=== PATIENT | male | born 1975 | race Caucasian/White ===

== ENCOUNTER 2018-04-09 16:46 | Emergency (ER) | payer OTHER ==
[2018-04-09 17:51] VITALS: RESP 18; TEMP 98.4
[2018-04-09 20:05] LABS: Basophils # (A) 0.1 k/uL (0-0.2); Basophils % (A) 1 %; Eosinophils # (A) 0.2 k/uL (0-0.7); Eosinophils % (A) 2 %; HCT 49.8 % (39.0-53.0); Lymphocytes % (A) 31 %; MCH 29.7 pg (25.0-35.0); MCHC 34.2 g/dL (31.0-37.0); MCV 86.9 fL (80.0-100.0); Mean Platelet Volume 6.3; Monocytes # (A) 0.5 k/uL (0-1.0); Monocytes % (A) 5 %; Neutrophils # (A) 5.8 k/uL (1.3-7.7); Neutrophils % (A) 60 %; Platelet Count 318 k/uL (150-450); RBC 5.73 m/uL (4.30-5.90); RDW 13.2 % (11.5-15.5); WBC 9.7 k/uL (3.8-10.6)
--- NOTE | 2018-04-09 20:09 | US ---
EXAMINATION TYPE: US venous doppler duplex LE LT DATE OF EXAM: 04/09/2018 7:59 PM COMPARISON: NONE CLINICAL HISTORY: Pain. edema hx of DVT patient on blood thinners. SIDE PERFORMED: Left TECHNIQUE: The lower extremity deep venous system is examined utilizing real time linear array sonog mehnaz with graded compression, doppler sonography and color-flow sonography. VESSELS IMAGED: External Iliac Vein (EIV) Common Femoral Vein Deep Femoral Vein Greater Saphenous Vein * Femoral Vein Popliteal Vein Small Saphenous Vein * Proximal Calf Veins (* superficial vessels) FINDINGS: Grayscale, color doppler, spectral doppler imaging performed of the deep veins of the lowe r extremities. There is normal flow, compressibility, vascular waveforms. IMPRESSION: 1. NEGATIVE FOR DVT, LEFT LOWER EXTREMITY. 2. 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
[2018-04-09 20:14] LABS: ALT 54 U/L (21-72); AST 32 U/L (17-59); Albumin 3.9 g/dL (3.5-5.0); Alkaline Phosphatase 55 U/L (38-126); Anion Gap 10 mmol/L; Blood Urea Nitrogen 8 mg/dL (9-20); Calcium 9.2 mg/dL (8.4-10.2); Carbon Dioxide 28 mmol/L (22-30); Chloride 102 mmol/L (98-107); Glucose 93 mg/dL (74-99); Magnesium 1.9 mg/dL (1.6-2.3); Potassium 3.7 mmol/L (3.5-5.1); Sodium 140 mmol/L (137-145); Total Bilirubin 1.2 mg/dL (0.2-1.3); Total Protein 7.3 g/dL (6.3-8.2)
--- NOTE | 2018-04-09 20:58 | ED ---
Lower Extremity Injury HPI - General Source: patient Mode of arrival: ambulatory Limitations: no limitations <Kailee Ventura - Last Filed: 04/10/18 02:33> <Alyssa López - Last Filed: 04/10/18 02:54> - General Chief Complaint: Extremity Injury, Lower Stated Complaint: POSS BLOODCLOT LEFT LEG Time Seen by Provider: 04/09/18 19:05 - History of Present Illness Initial Comments: 42-year-old male patient presents to the emergency department today for evaluation of left lower extremity swelling. Patient states that yesterday evening he started to have some swelling to the left lower extremity. Patient states that he does have some mild discomfort to the left knee for the past several weeks. 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 Patient denies any injury to the left leg. He does take Xarelto daily basis. He denies any shortness of breath, dyspnea with exertion or orthopnea. Denies any chest pain. Denies any cough or congestion. Denies any fevers or chills. Patient denies any recent rash, abdominal pain, nausea, vomiting, diarrhea, constipation, back pain, numbness, tingling, dizziness, weakness, hematuria, dysuria, urinary urgency, urinary frequency, headache, visual changes , or any other complaints. (Kailee Ventura) - Related Data Home Medications Medication Instructions Recorded Confirmed HYDROcodone/APAP 10-325MG [[place] 1 tab PO QID PRN 04/09/18 04/09/18 10-325] Rivaroxaban [Xarelto] 20 mg PO DAILY 04/09/18 04/09/18 Allergies Allergy/AdvReac Type Severity Reaction Status Date / Time No Known Allergies Allergy Verified 04/09/18 20:57 Review of Systems ROS Other: All systems not noted in ROS Statement are negative. <Kailee Ventura - Last Filed: 04/10/18 02:33> ROS Other: All systems not noted in ROS Statement are negative. <Alyssa López - Last Filed: 04/10/18 02:54> ROS Statement: Those systems with pertinent positive or pertinent negative responses have been documented in the HPI. Past Medical History Past Medical History: CVA/TIA, Deep Vein Thrombosis (DVT) Additional Past Medical History / Comment(s): crohns disease dvt r arm History of Any Multi-Drug Resistant Organisms: None Reported Past Surgical History: Cholecystectomy, Orthopedic Surgery Additional Past Surgical History / Comment(s): arm SX, R leg below knee amputation Past Anesthesia/Blood Transfusion Reactions: No Reported Reaction Past Psychological History: No Psychological Hx Reported Smoking Status: Former smoker Past Alcohol Use History: None Reported Past Drug Use History: None Reported - Past Family History Father Additional Family Medical History / Comment(s): DAD IN HIS TWENTIES CAUSES UNK Mother Family Medical History: Diabetes Mellitus <Kailee Ventura M - Last Filed: 04/10/18 02:33> General Exam Limitations: no limitations General appearance: alert, in no apparent distress, other (Physical well- developed, well-nourished adult male patient in no acute distress. Vital signs upon presentation are temperature 98.4F, pulse 94, respirations 18, blood pressure 170/125, pulse ox 97% on room air.) Eye exam: Present: normal appearance, PERRL, EOMI. Absent: scleral icterus, conjunctival injection, periorbital swelling ENT exam: Present: normal exam, normal oropharynx, mucous membranes moist Respiratory exam: Present: normal lung sounds bilaterally. Absent: respiratory distress, wheezes, rales, rhonchi, stridor Cardiovascular Exam: Present: regular rate, normal rhythm, normal heart sounds. Absent: systolic murmur, diastolic murmur, rubs, gallop, clicks GI/Abdominal exam: Present: soft, normal bowel sounds. Absent: distended, tenderness, guarding, rebound, rigid Extremities exam: Present: full ROM, normal capillary refill, other (Right below the knee amputation. There is 2+ pitting edema to the left foot, ankle, and lower extremity. No erythema or evidence of wound. Skin is pink, warm, dry. Cap refills less than 3 seconds. Pedal and posttibial pulses are 2+ and equal bilaterally.). Absent: normal inspection, tenderness, pedal edema, joint swelling, calf tenderness Neurological exam: Present: alert, oriented X3, CN II-XII intact Psychiatric exam: Present: normal affect, normal mood Skin exam: Present: warm, dry, intact, normal color. Absent: rash <Kailee Ventura - Last Filed: 04/10/18 02:33> Vital Signs 04/09/18 04/09/18 17:48 21:18 Temperature 98.4 F Pulse Rate 94 82 Respiratory 18 18 Rate Blood Pressure 170/125 126/83 O2 Sat by Pulse 97 98 Oximetry Medical Decision Making - Lab Data Result diagrams: 04/09/18 19:50 04/09/18 19:50 - Radiology Data Radiology results: report reviewed <Kailee Ventura - Last Filed: 04/10/18 02:33> - Lab Data Result diagrams: 04/09/18 19:50 04/09/18 19:50 <Alyssa López - Last Filed: 04/10/18 02:54> - Medical Decision Making 42-year-old male patient presented to the emergency department today for evaluation of left leg swelling. Patient denies any pain to the leg. Physical examination did reveal 2+ pitting edema to the foot, ankle, and lower leg. Neurovascular status was intact. Labs reviewed and are unremarkable. Ultrasound of the left lower extremity was negative for any DVT. There did appear to be Rahman's cyst in the popliteal space. Patient was instructed to obtain and wear a compression stocking and to keep his leg elevated. He is instructed to follow-up with his primary care physician for recheck in 1-2 days. Return parameters discussed in detail. He verbalizes understanding and agrees with this plan. (Kailee Ventura) I was available for consultation in the emergency department. The history and physical exam were done by the midlevel provider. I was consulted for this patient's care. I reviewed the case with the midlevel provider and based on their presentation of the patient, I agree with the assessment, medical decision making and plan of care as documented. (Alyssa López) - Lab Data Lab Results 04/09/18 04/09/18 04/09/18 Range/Units 19:50 19:50 19:50 WBC 9.7 (3.8-10.6) k/uL RBC 5.73 (4.30-5.90) m/uL Hgb 17.0 (13.0-17.5) gm/dL Hct 49.8 (39.0-53.0) % MCV 86.9 (80.0-100.0) fL MCH 29.7 (25.0-35.0) pg MCHC 34.2 (31.0-37.0) g/dL RDW 13.2 (11.5-15.5) % Plt Count 318 (150-450) k/uL Neutrophils % 60 % Lymphocytes % 31 % Monocytes % 5 % Eosinophils % 2 % Basophils % 1 % Neutrophils # 5.8 (1.3-7.7) k/uL Lymphocytes # 3.0 (1.0-4.8) k/uL Monocytes # 0.5 (0-1.0) k/uL Eosinophils # 0.2 (0-0.7) k/uL Basophils # 0.1 (0-0.2) k/uL Sodium 140 (137-145) mmol/L Potassium 3.7 (3.5-5.1) mmol/L Chloride 102 (98-107) mmol/L Carbon Dioxide 28 (22-30) mmol/L Anion Gap 10 mmol/L BUN 8 L (9-20) mg/dL Creatinine 0.92 (0.66-1.25) mg/dL Est GFR (CKD-EPI)AfAm >90 (>60 ml/min/1.73 sqM) Est GFR (CKD-EPI)NonAf >90 (>60 ml/min/1.73 sqM) Glucose 93 (74-99) mg/dL Calcium 9.2 (8.4-10.2) mg/dL Magnesium 1.9 (1.6-2.3) mg/dL Total Bilirubin 1.2 (0.2-1.3) mg/dL AST 32 (17-59) U/L ALT 54 (21-72) U/L Alkaline Phosphatase 55 (38-126) U/L NT-Pro-B Natriuret Pep <11 pg/mL Total Protein 7.3 (6.3-8.2) g/dL Albumin 3.9 (3.5-5.0) g/dL - Radiology Data Venous Doppler duplex of the left lower extremity was obtained. Report was reviewed in its entirety. Impression by Dr. Tanner shows negative for DVT, left lower trauma. Small popliteal fossa anechoic fluid collection noted, likely Rahman's cyst. (Kailee Ventura) Disposition Is patient prescribed a controlled substance at d/c from ED?: No Time of Disposition: 21:38 <Kailee Ventura - Last Filed: 04/10/18 02:33> <Alyssa López P - Last Filed: 04/10/18 02:54> Clinical Impression: Swelling of left lower extremity Disposition: HOME SELF-CARE Condition: Good Instructions (If sedation given, give patient instructions): Leg Edema (ED) Additional Instructions: Obtain and wear a compression stocking to the left leg during the day, take this off at night while sleeping. Keep left leg elevated as much as possible. Follow-up with her primary care physician for further evaluation as soon as possible. Return to the emergency department immediately for any new, worsening , or concerning symptoms. Referrals: Moriah Cuellar MD [Primary Care Provider] - 1-2 days
[2018-04-09 21:19] VITALS: BP 126/83; PULSE 82
== END 2018-04-09 21:59 | disposition home or self-care (01) ==
LOC: EC 16:46
DX: M79.89 Other specified soft tissue disorders (principal); Z79.01 Long term (current) use of anticoagulants; Z89.511 Acquired absence of right leg below knee; Z86.73 Personal history of transient ischemic attack (TIA), and cerebral infarction without residual deficits; Z86.718 Personal history of other venous thrombosis and embolism; Z87.891 Personal history of nicotine dependence
CPT/HCPCS: 36415; 80053; 83735; 83880; 85025; 99284

== ENCOUNTER → 2021-02-20 | Outpatient (CLI) | payer OTHER ==
--- NOTE | 2021-02-20 12:30 | XR ---
EXAMINATION TYPE: XR thoracic spine complete DATE OF EXAM: 02/20/2021 CLINICAL HISTORY: pain TECHNIQUE: Frontal, lateral, and swimmer's view of thoracic spine are obtained. COMPARISON: None. FINDINGS: Thoracic spine show satisfactory alignment without evidence of acute fracture or dislocatio n. Vertebral body heights are preserved. Mild degenerative disc space narrowing. Visualized ribs a re unremarkable. IMPRESSION: No acute fracture or dislocation is seen in the thoracic spine. ICD 10 NO FRACTURE, INIT IAL EVALUATION
--- NOTE | 2021-02-20 12:31 | XR ---
EXAMINATION TYPE: XR lumbar spine 2 or 3V DATE OF EXAM: 02/20/2021 CLINICAL HISTORY: pain TECHNIQUE: Three views of the lumbar spine are submitted. COMPARISON: None. FINDINGS: There are 5 lumbar type vertebral bodies identified. The lumbar spine shows satisfactory alignment w ithout evidence of acute fracture or dislocation. Vertebral body heights are within normal limits. Moderate multilevel degenerative disc space narrowing and spondylosis. The overlying soft tissue renée ears unremarkable. IMPRESSION: No acute fracture or dislocation is seen in the lumbar spine. ICD 10 NO FRACTURE, INITIAL EVALUATION
--- NOTE | 2021-02-20 12:33 | XR ---
EXAMINATION TYPE: XR pelvis AP view DATE OF EXAM: 02/20/2021 CLINICAL HISTORY: Injury with pain TECHNIQUE: A single AP view of the pelvis is obtained. COMPARISON: CTA abdomen and pelvis March 13, 2017. FINDINGS: There is no acute fracture/dislocation evident in the pelvis. Lzexmpbt-[id number] narrowing bilateral sacroiliac joints redemonstrated. Moderate acetabular spurring of both hips again seen wit hout significant joint space loss. Pubic symphysis is intact. Surgical clip in the left pelvis redemo nstrated. IMPRESSION: There is no acute fracture or dislocation in the pelvis.
== END | disposition home or self-care (01) ==
LOC: RADXRMAIN 11:52
PROVIDERS: ATTEND Emergency Medicine
DX: S30.0XXA Contusion of lower back and pelvis, initial encounter (principal); S23.3XXA Sprain of ligaments of thoracic spine, initial encounter; X58.XXXA Exposure to other specified factors, initial encounter
CPT/HCPCS: 72072; 72100; 72170

== ENCOUNTER → 2021-04-21 | Outpatient (CLI) | payer OTHER ==
--- NOTE | 2021-04-22 08:01 | MR ---
EXAMINATION TYPE: MR lumbar spine wo con DATE OF EXAM: 04/21/2021 COMPARISON: CT lumbar spine March 24, 2021. HISTORY: Lower back pain, LLE radiculopathy S/P fall. TECHNIQUE: Multiplanar, multisequence imaging of the lumbar spine is performed without IV contrast. FINDINGS: Sagittal images of the lumbar spine show vertebral body heights to remain satisfactory. Red emonstration of grade 1 retrolisthesis of L3 on L4 and L4 on L5. Multilevel disc desiccation with re lative sparing of L2-L3 level. Moderate disc space narrowing L3-L4 level. Mild to moderate disc space narrowing L4-L5 and L5-S1 levels. The conus medullaris is normal in position and signal ending at T1 2-L1 disc space level. The bone marrow signal intensity is within normal limits. Mild multilevel ant erior spurring redemonstrated. Axial images at T12-L1 level redemonstrate effacing right lateral thecal sac axial image [address] axial image 9 moderate right-sided facet arthropathy. Axial images at L1-L2 level appear within normal limits. Axial images at L2-L3 level shows mild facet arthropathy and ligament flavum hypertrophy effacing pos terior lateral thecal sac. Axial images at L3-L4 level show retrolisthesis with mild facet arthropathy bilaterally. There is mil [id number] broad disc bulge minimally effacing the anterior thecal sac. Mild right-sided neural fo raminal narrowing is present. Axial images at the L4-L5 level shows mild facet arthropathy and ligamentum flavum hypertrophy. There is mild broad disc bulge with posterior annular tear. Patent bilateral neural foramina. Axial images at L5-S1 level moderate facet degenerative changes bilaterally. There is broad-based rig ht paracentral/foraminal disc protrusion effacing the lateral recess and causing moderate right-sided neural foraminal narrowing. Left-sided neural foramen is patent. Spinal canal is mildly effaced righ t anterolateral aspect. There is expected encroachment of the central right S1 nerve axial image 1 an d sagittal image 11. This however does not correlate with patient's left-sided radiculopathy type sym ptoms. Paraspinal muscle bulk is maintained. IMPRESSION: Multilevel spondylolisthesis and degenerative changes as detailed above.
== END | disposition home or self-care (01) ==
LOC: RADMRIMAIN 15:23
PROVIDERS: ATTEND Internal Medicine
DX: M43.16 Spondylolisthesis, lumbar region (principal); M51.36 Other intervertebral disc degeneration, lumbar region
CPT/HCPCS: 72148

== ENCOUNTER 2021-05-13 16:07 | Emergency (ER) | payer OTHER ==
[2021-05-13 16:11] VITALS: TEMP 97.5
[2021-05-13] MEDS ORDERED: ONDANSETRON 4 MG/2 ML VIAL IVP STA (16:31)
[2021-05-13] MEDS ORDERED: SODIUM CHLORIDE 0.9% 1,000 ML IV STA (16:31)
[2021-05-13] MEDS ORDERED: MORPHINE SULFATE 4 MG/ML SYRINGE IV STA (16:31)
--- NOTE | 2021-05-13 17:03 | ED ---
General Adult HPI - General Chief complaint: Nausea/Vomiting/Diarrhea Stated complaint: abd pain/vomiting Time Seen by Provider: 05/13/21 16:26 Source: patient, RN notes reviewed, old records reviewed Mode of arrival: ambulatory Limitations: no limitations - History of Present Illness Initial comments: 45 yo female presenting for evaluation generalized abdominal pain, vomiting and diarrhea. Patient states he had remote diagnosis of Crohn's breath states he had a long period of time when he had no flareups of is not on any chronic treatment. He states that over the past 24 hours she's had vomiting and watery diarrhea. As well as generalized abdominal pain and cramping. No rectal bleeding. No fever. - Related Data Home Medications Medication Instructions Recorded Confirmed HYDROcodone/APAP 10-325MG [[place] 1 tab PO QID PRN 04/09/18 05/13/21 10-325] Rivaroxaban [Xarelto] 20 mg PO DAILY 04/09/18 05/13/21 valACYclovir [Valtrex] 500 mg PO DAILY 05/13/21 05/13/21 Allergies Allergy/AdvReac Type Severity Reaction Status Date / Time No Known Allergies Allergy Verified 05/13/21 18:10 Review of Systems ROS Statement: Those systems with pertinent positive or pertinent negative responses have been documented in the HPI. ROS Other: All systems not noted in ROS Statement are negative. Past Medical History Past Medical History: CVA/TIA, Deep Vein Thrombosis (DVT) Additional Past Medical History / Comment(s): crohns disease dvt r arm History of Any Multi-Drug Resistant Organisms: None Reported Past Surgical History: Cholecystectomy, Orthopedic Surgery Additional Past Surgical History / Comment(s): arm SX, R leg below knee amputation Past Anesthesia/Blood Transfusion Reactions: No Reported Reaction Past Psychological History: No Psychological Hx Reported Smoking Status: Never smoker Past Alcohol Use History: None Reported Past Drug Use History: None Reported - Past Family History Father Additional Family Medical History / Comment(s): DAD IN HIS TWENTIES CAUSES UNK Mother Family Medical History: Diabetes Mellitus General Exam Limitations: no limitations General appearance: alert, in no apparent distress Head exam: Present: atraumatic, normocephalic Eye exam: Present: normal appearance, PERRL ENT exam: Present: mucous membranes dry Neck exam: Present: normal inspection. Absent: tenderness, meningismus Respiratory exam: Present: normal lung sounds bilaterally. Absent: respiratory distress, wheezes Cardiovascular Exam: Present: regular rate, normal rhythm GI/Abdominal exam: Present: soft, distended, tenderness. Absent: guarding, rebound, rigid Extremities exam: Present: normal inspection, normal capillary refill. Absent: pedal edema, calf tenderness Neurological exam: Present: alert, oriented X3, CN II-XII intact. Absent: motor sensory deficit Psychiatric exam: Present: normal affect, normal mood Skin exam: Present: warm, dry, intact. Absent: cyanosis, diaphoretic Course Vital Signs 05/13/21 05/13/21 16:08 17:10 Temperature 97.5 F L Pulse Rate 60 111 H Respiratory 20 16 Rate Blood Pressure 138/96 151/91 O2 Sat by Pulse 94 L 94 L Oximetry Medical Decision Making - Medical Decision Making 45-year-old male history of Crohn's disease presenting with abdominal pain distention, nausea vomiting. Workup is initiated. Patient has mild leukocytos is. He is hemoconcentrated with hemoglobin 19.4. He has a minimal lactic acid. Normal kidney function. CT is performed which does show high-grade small bowel obstruction with transition point likely secondary to Crohn's exacerbation. I did discuss case with Dr. Ford who is covering for general surgery and he requests patient be transferred to an institution that has gastroenterology. I discussed case with Dr. Hollis at [facility] who will accept transfer for further evaluation and treatment. given symptomatic relief as well as IV steroids and NG tube will be placed. - Lab Data Result diagrams: 05/13/21 16:37 05/13/21 16:37 Lab Results 05/13/21 05/13/21 05/13/21 Range/Units 16:37 16:37 16:37 WBC 13.6 H (3.8-10.6) k/uL RBC 6.33 H (4.30-5.90) m/uL Hgb 19.4 H* (13.0-17.5) gm/dL Hct 56.9 H (39.0-53.0) % MCV 89.8 (80.0-100.0) fL MCH 30.6 (25.0-35.0) pg MCHC 34.1 (31.0-37.0) g/dL RDW 14.0 (11.5-15.5) % Plt Count 437 (150-450) k/uL MPV 7.0 Neutrophils % 76 % Lymphocytes % 18 % Monocytes % 5 % Eosinophils % 0 % Basophils % 0 % Neutrophils # 10.3 H (1.3-7.7) k/uL Lymphocytes # 2.5 (1.0-4.8) k/uL Monocytes # 0.6 (0-1.0) k/uL Eosinophils # 0.1 (0-0.7) k/uL Basophils # 0.0 (0-0.2) k/uL Sodium 137 (137-145) mmol/L Potassium 4.2 (3.5-5.1) mmol/L Chloride 99 (98-107) mmol/L Carbon Dioxide 22 (22-30) mmol/L Anion Gap 16 mmol/L BUN 15 (9-20) mg/dL Creatinine 1.11 (0.66-1.25) mg/dL Est GFR (CKD-EPI)AfAm >90 (>60 ml/min/1.73 sqM) Est GFR (CKD-EPI)NonAf 80 (>60 ml/min/1.73 sqM) Glucose 145 H (74-99) mg/dL Plasma Lactic Acid Edmund 2.5 H* (0.7-2.0) mmol/L Calcium 9.3 (8.4-10.2) mg/dL Total Bilirubin 3.8 H (0.2-1.3) mg/dL AST 28 (17-59) U/L ALT 22 (4-49) U/L Alkaline Phosphatase 88 (38-126) U/L Total Protein 8.5 H (6.3-8.2) g/dL Albumin 4.7 (3.5-5.0) g/dL Amylase 71 (30-110) U/L Lipase 50 (23-300) U/L Disposition Clinical Impression: Exacerbation of Crohn's disease, Small bowel obstruction Disposition: OTHER INSTITUTION NOT DEFINED Condition: Stable Is patient prescribed a controlled substance at d/c from ED?: No Referrals: Moriah Cuellar MD [Primary Care Provider] - 1-2 days Time of Disposition: 19:16 - Out of Hospital Transfer - Req. Specs Out of Hospital Transfer - Requested Specifics: Other Emergency Center (TRansfer to [facility])
[2021-05-13 17:06] LABS: ALT 22 U/L (4-49); AST 28 U/L (17-59); African American GFR (CKD) >90 (>60 ml/min/1.73 sqM); Albumin 4.7 g/dL (3.5-5.0); Alkaline Phosphatase 88 U/L (38-126); Amylase 71 U/L (30-110); Anion Gap 16 mmol/L; Basophils % (A) 0 %; Blood Urea Nitrogen 15 mg/dL (9-20); Calcium 9.3 mg/dL (8.4-10.2); Carbon Dioxide 22 mmol/L (22-30); Chloride 99 mmol/L (98-107); Eosinophils # (A) 0.1 k/uL (0-0.7); Eosinophils % (A) 0 %; Glucose 145 mg/dL (74-99); HCT 56.9 % (39.0-53.0); Lipase 50 U/L (23-300); Lymphocytes # (A) 2.5 k/uL (1.0-4.8); Lymphocytes % (A) 18 %; MCH 30.6 pg (25.0-35.0); MCHC 34.1 g/dL (31.0-37.0); MCV 89.8 fL (80.0-100.0); Monocytes # (A) 0.6 k/uL (0-1.0); Monocytes % (A) 5 %; Neutrophils # (A) 10.3 k/uL (1.3-7.7); Neutrophils % (A) 76 %; Non-African American GFR(CKD) 80 (>60 ml/min/1.73 sqM); Platelet Count 437 k/uL (150-450); Potassium 4.2 mmol/L (3.5-5.1); RBC 6.33 m/uL (4.30-5.90); Sodium 137 mmol/L (137-145); Total Bilirubin 3.8 mg/dL (0.2-1.3); Total Protein 8.5 g/dL (6.3-8.2); WBC 13.6 k/uL (3.8-10.6)
[2021-05-13 17:08] LABS: HGB 19.4 gm/dL (13.0-17.5)
--- NOTE | 2021-05-13 18:06 | CT ---
EXAMINATION TYPE: CT abdomen pelvis w con DATE OF EXAM: 05/13/2021 COMPARISON: 03/13/2017 HISTORY: Abdominal pain, N/V CT DLP: 1875.1 mGycm, Automated Exposure Control for Dose Reduction was Utilized. CONTRAST: CT scan of the abdomen and pelvis is performed with oral and with IV Contrast, patient injected with 100 mL of Isovue 300. FINDINGS: LUNG BASES: Non specific right lower lobe groundglass and linear opacities. INCLUDED CARDIAC STRUCTURES: There is no cardiomegaly or pericardial effusion. LIVER: Right hepatic lobe measures 22 cm. No focal hepatic mass. Normal hepatic contour. GALLBLADDER : Surgically resected. BILIARY TREE: Mild intrahepatic biliary ductal dilatation, greater in the left side. This has slightl y increased in the interval. Within the extrahepatic common bile duct or to prior study. PANCREAS: No significant abnormality is seen. SPLEEN: No significant abnormality is seen. ADRENALS: No significant abnormality is seen. KIDNEYS AND URETERS: No significant abnormality is seen. URINARY BLADDER: No significant abnormality is appreciated. PROSTATE: Prominent size of the prostate gland. GASTROINTESTINAL SYSTEM: Distal esophagus is normal. Stomach is unremarkable. Duodenum is within norm al limits. There is small bowel dilatation extending from the duodenal jejunal junction to the level of the distal ileum. Right mid abdomen, there is a obvious transition point between dilated distal il eum bowel loops. This is secondary to significant narrowing of distal terminal ileum loop. There is a djacent mild stranding and mesenteric vascular congestion. Prominent lymph nodes are seen within the same vicinity (52/201). The terminal ileum bowel loop distal to the dilatation demonstrates mild wall thickening similar to prior study to the level of the ileocecal valve. The appendix is not thickened and no evidence for acute appendicitis is seen. There are scattered diverticula in the sigmoid colon . Some air passages through to the rectum. There is mild focal irregularity of the wall of the descen ding colon superiorly seen on image 47 series 201. There is also edema involving the wall of the cecu m and ascending colon proximally. PERITONEUM/MESENTRY: No pneumoperitoneum or ascites. LYMPH NODES: No enlarged retroperitoneal or pelvic lymph nodes. MAJOR VASCULAR STRUCTURES: Nonaneurysmal aorta. Unremarkable inferior vena cava. OSSEOUS STRUCTURES: There are arthritic changes at the sacroiliac joints bilateral hip joints. No acu te fracture or dislocation. Moderate degenerative changes seen in the spine, most apparent at L5-S1. IMPRESSION: 1. High-grade small bowel obstruction at the level of the terminal ileum with a transition point asso ciated with distal terminal ileum mild wall thickening, associated/adjacent inflammatory changes of t he mesentery and possible TI stricture, findings are likely on the basis of active inflammatory disea se/Crohn's. 2. Irregularity in the wall of the proximal ascending colon and superior aspect of the wall of the de scending colon could be related to the same pathology or could be related to under distention. Lack o f oral contrast limits evaluation of remaining bowel loops. 3. Sacroiliitis, consistent with above. 4. Mild sigmoid diverticulosis, no acute diverticulitis. 5. Mild intrahepatic biliary ductal dilatation, increased in the interval, most prominent in the left hepatic lobe. 6. Right lower lobe lung changes, no significant change since prior. They clinically for acute infect ion. 7. Hepatomegaly. No significant change.
[2021-05-13] MEDS ORDERED: SODIUM CHLORIDE 0.9% 500 ML 500 ML IV ONE (18:24)
[2021-05-13] MEDS ORDERED: methylPREDNISolone SOD SUCCI 125 MG/2 ML VIAL IV STA (18:24)
[2021-05-13] MEDS ORDERED: SODIUM CHLORIDE 0.9% 1,000 ML IV SCH (18:30)
[2021-05-13] MEDS ORDERED: HYDROmorphone 1 MG/ML 1 ML SYRINGE IVP STA ×2 (19:15→21:38)
--- NOTE | 2021-05-13 20:01 | XR ---
EXAMINATION TYPE: XR chest 1V DATE OF EXAM: 05/13/2021 7:41 PM COMPARISON:Chest radiographs from 01/28/2011 TECHNIQUE: XR chest 1V Frontal view of the chest. CLINICAL INDICATION:Male, 45 years old with history of NG tube placement; FINDINGS: Lungs/Pleura: There is no evidence of pleural effusion, focal consolidation, or pneumothorax. There i s an elevated right diaphragm. Pulmonary vascularity: Unremarkable. Heart/mediastinum: Cardiomediastinal silhouette is unremarkable. Musculoskeletal: No acute osseous pathology. Other findings: None Lines/Tubes: Nasogastric tube with its distal tip and side-port projecting under the diaphragm. IMPRESSION: 1. Nasogastric tube in appropriate position. 2. No acute cardiopulmonary disease/process. 3. Elevated right diaphragm could represent damage to the right phrenic nerve.
--- NOTE | 2021-05-13 21:33 | XR ---
EXAMINATION TYPE: XR chest 1V DATE OF EXAM: 05/13/2021 8:19 PM COMPARISON: 05/13/2021 TECHNIQUE: XR chest 1V Frontal view of the chest. CLINICAL INDICATION:Male, 45 years old with history of NG tub placement ; EXAMINATION TYPE: XR chest 1V FINDINGS: Lungs/Pleura: There is no evidence of pleural effusion, focal consolidation, or pneumothorax. There i s an elevated right diaphragm. Pulmonary vascularity: Unremarkable. Heart/mediastinum: Cardiomediastinal silhouette is unremarkable. Musculoskeletal: No acute osseous pathology. Other findings: None Lines/Tubes: Nasogastric tube with its distal tip and side-port projecting under the diaphragm. IMPRESSION: 1. Nasogastric tube in appropriate position. 2. No acute cardiopulmonary disease/process. 3. Elevated right diaphragm could represent damage to the right phrenic nerve.
[2021-05-13 21:44] VITALS: BP 150/89; PULSE 89; RESP 18
== END 2021-05-13 22:29 | disposition other institution (70) ==
LOC: EC 16:07
DX: K50.90 Crohn's disease, unspecified, without complications (principal); K56.609 Unspecified intestinal obstruction, unspecified as to partial versus complete obstruction; Z86.73 Personal history of transient ischemic attack (TIA), and cerebral infarction without residual deficits
CPT/HCPCS: 99284; 96374; 96375; 96376; 96361; 36415; 80053; 82150; 83605; 83690; 85025; 71045; 74177; J2270; J2930; J2405; J1170; Q9967

== ENCOUNTER → 2021-06-19 | Outpatient (CLI) | payer OTHER ==
[2021-06-19 23:37] LABS: Hepatitis B Surface Antigen Nonreactive (Nonreactive)
[2021-06-19 23:38] LABS: Hepatitis B Surface Antibody Reactive (Nonreactive)
== END | disposition home or self-care (01) ==
LOC: LABWHC1 15:41
PROVIDERS: ATTEND Internal Medicine Gastroenterology
DX: Z87.891 Personal history of nicotine dependence (principal)
CPT/HCPCS: 36415; 86480; 86704; 86706; 87340

== ENCOUNTER → 2021-07-13 | Outpatient (CLI) | payer OTHER ==
[2021-07-13 13:02] VITALS: BP 144/89; PULSE 72; RESP 18; TEMP 98.7
--- NOTE | 2021-07-13 13:07 | P.CON ---
Consult Note - . Consult date: 07/13/21 Assessment/Plan:: HISTORY OF PRESENT ILLNESS: 46 -year-old male as a referral from Dr. Jewell presents today with chronic and severe left-sided lower back pain since February 2021 secondary to spondylosis, DDD and disc herniations for evaluation. He states left-sided lower back pain is 8 out of 10 in intensity, achy, burning, tight, stabbing sensation with radiation of pain down the left lower extremity and a sharp character. Pain is provoked with standing, walking, bending and lifting. Pain is relieved with medications ([place], ibuprofen), heat, physical therapy in March 2021, massage therapy which worsened the pain, repositioning, use of a recliner and rest. PMH: Crohn's disease PSH: Right thoracic outlet syndrome, CVA, RLE amputation, Cholecystectomy SH: Negative x 3 FH: Non contributory All: NKDA Meds: See list REVIEW OF ORGAN SYSTEMS: CONSTITUTIONAL: No fevers or chills. No recent weight loss. HEENT: No visual acuity loss, eye pain, difficulties with hearing. No nosebleeds. No difficulty swallowing. RESPIRATORY: Denies any troubles with breathing or dyspnea on exertion. CARDIOVASCULAR: Denies any chest pain, palpitations, or recent heart attacks. GASTROINTESTINAL: Denies fatty food intolerance. Has change in bowel habits and gas bloat. GENITOURINARY: Denies any blood in urine. Has increased urinary frequency. NEUROLOGICAL: + numbness and tingling along the distal extremities. No seizure disorders or headaches. MUSCULOSKELETAL: + back pain SKIN: No skin cancer. No rash. PSYCHIATRIC: Denies current depression or suicidal thoughts. ENDOCRINE: Denies current thyroid disorders. Denies any blood sugar glucose intolerance. HEME/LYMPHATIC: Denies any lumps and bumps around the neck. History of deep venous thrombosis. ALLERGY/IMMUNOLOGY: No immunoglobulin therapy. No immune deficiencies. BREAST: Denies current breast lumps, pain or nipple discharge. Physical Examinations : Constitutional : Cooperative , not in acute distress . HEENT: Neck supple. No Lymphadenopathy. Normal thyroid size . Eyes no ptosis , no icterus, no photophobia . Hearing intact. Normal oropharynx. No Thrush. Respiratory : Chest clear to auscultations bilaterally. No wheezing. No rhonchi. Cardiovascular : Regular rate and rhythm , S1 / S2. No S3 . No S4. Gastrointestinal : Abdomen soft. No tenderness. Bowel sounds x 4. No organomegaly . Genitourinary : Deferred. Neurologic : Cranial nerve II to XII intact. No focal neurological deficits. Psychiatric : alert & oriented x 3. Matching mood & appropriate affect. Judgment & insight intact. Lymphatic No Lymphadenopathy. Musculoskeletal : Cervical Spine Motor strength in the deltoid and biceps: Normal right side. Normal Left side Motor strength biceps and the wrist extensors: Normal right side . Normal left side Motor strength in the triceps muscle: Normal right side. Normal left side Deep tendon reflexes: Normal at the biceps. Normal at Brachioradialis. Normal at triceps Cervical facet loading test: positive bilaterally Spurling test: positive bilaterally Neck distraction test: positive bilaterally Michelle sign: positive bilaterally Lumbar spine Motor strength lower extremities ,thigh and legs 5/5 Right side , 5/5 Left side Deep tendon reflexes : Normal Knee Jerk. Normal Ankle Jerk Vertebral body tenderness over L5 Lumbar facet Loading Test: positive Right / positive Left Range of motion of the lumbar spine Flexion 30 degrees, extension 10 degrees Straight Leg Raise test: Left/ Right positive at degree Justine test: positive right / positive left. Severe tenderness over the Sacroiliac joint on the Right / Left sides Gaenslen test: positive bilaterally Seated flexion test: positive bilaterally. Imaging: MRI without contrast of the Lumbar spine from 05/09/21 reviewed. Assessment/ Plan : Lumbar DDD, Lumbar DH, Lumbar Spondylosis Recommendation of LESI L5-S1. May continue with additional ESIs, up to 3 within a 6 mo period, to obtain optimal pain relief. Also will consider LESI L4-L5. Risks, benefits of procedure discussed and patient verbalized understanding. Admits to Xarelto use. Denies medical history of diabetes. Protocol for discontinuation/ continuation of medications connie procedure discussed. All questions answered. I have spent greater than 50 minutes on patient care today. Dr Parra was available by phone for the evaluation of this patient. The time was used to review the medical records including relevant urine studies and Prescription history (MAPs), review of the available imaging, evaluation and examination of the patient, coordination of care with the medical staff and if applicable referring physicians, as well as creation of the medical record PQRS Measure Charge Sheet Mode of Arrival: Ambulatory - Pain Location Left Lower Back Non-Pharmacological Interventions: Heat, Physical Therapy, Position/Reposition Pharmacological Interventions: PRN Medication, Scheduled Medication PQRS Narrative: Smoking Status Former smoker Blood Pressure 144/89 Pain Intensity [Left Lower 8 Back] Scale Used Numeric (1 - 10) Hx Alcohol Use (MH) No Home Medications: Ambulatory Orders HYDROcodone/APAP 10-325MG [[place] 10-325] 1 tab PO QID PRN 04/09/18 Rivaroxaban [Xarelto] 20 mg PO DAILY 04/09/18 valACYclovir [Valtrex] 500 mg PO DAILY 05/13/21
== END | disposition home or self-care (01) ==
LOC: PNWHC3 11:58
PROVIDERS: ATTEND Specialist
DX: M47.896 Other spondylosis, lumbar region (principal); M51.36 Other intervertebral disc degeneration, lumbar region
CPT/HCPCS: 99211

== ENCOUNTER 2021-08-15 09:23 | Day surgery (SDC) | payer OTHER ==
[2021-08-11 12:06] VITALS: BMI 32.0
[~2021-08-15 09:23] MED LIST: LACTATED RINGERS 1,000 ML IV SCH; LIDOCAINE 1% (10MG/ML) FOR IV START INTRADERMA PRN
[2021-08-15 09:44] VITALS: RESP 18; TEMP 99.4
[2021-08-15] MEDS ORDERED: methylPREDNISolone ACETATE 40 MG/ML 1 ML VIAL ONE (10:22)
[2021-08-15] MEDS ORDERED: fentaNYL (PF) 50 MCG/ML 2 ML AMP ONE (10:22)
[2021-08-15] MEDS ORDERED: IOPAMIDOL M200 10 ML VIAL ONE (10:22)
[2021-08-15] MEDS ORDERED: MIDAZOLAM 2 MG/2 ML VIAL ONE (10:22)
--- NOTE | 2021-08-15 10:34 | P.PCN ---
Date of Procedure: 08/15/21 Procedure(s) Performed: PREOPERATIVE DIAGNOSIS: 1- Lumbar Degenerative Disc Diseases 2-Lumbar spondylosis with Facet arthropathy without myelopathy 3-lumbar radiculopathy POSTOPERATIVE DIAGNOSIS: Same as preop diagnosis. PROCEDURE 1. Lumbar epidural steroid injection under fluoroscopic guidance at the L5-S1 level. (Fluoroscopy imaging was available in radiology department) 2. Lumbar epidurogram. ANESTHESIA: Local with 1% lidocaine 3 ml and , moderate sedation with i ntravenous Versed 2 mg ,and fentanyle 100 Mcg EBL: Minimal PROCEDURE INDICATION: The patient with low back pain and radiculitis symptoms unresponsive to conservative treatment. Fluoroscopy was used to optimize visualization of the needle placement and to maximize safety. PROCEDURE DESCRIPTION / TECHNIQUE: The patient was seen and identified in the preoperative area. Risks, benefits, complications including but not limited to infections ,bleeding ,allergic reaction to the medications ,nerve damage and not complete pain releife , and alternatives were discussed with the patient. The patient agreed to proceed with the procedure and signed the consent. IV was started, and vital signs were stable. Patient was taken to the OR and time out was completed. The patient was placed in the prone position on procedure table and a pillow was placed under the abdomen to reduce lumbar lordosis. The lumbosacral area was prepped and draped in the usual sterile fashion.ere closely monitored during the procedure. Conscious sedation was used during the procedure to decrease patients anxiety. Vital signs was monitered during the entire procedure. Using anterior-posterior fluoroscopy, the L5-S1 interlaminar space was identified and the skin over this site was marked and then infiltrated with 1% lidocaine subcutaneously. Subsequently, a 20-gauge Tuohy epidural needle was inserted and advanced toward the epidural space using the ``Loss of resistance technique and guided by AP and lateral fluoroscopy. The correct needle position in the epidural space was verified with the injection of 2 mL of the water soluble contrast dye Isovue 200 contrast and observing an excellent epidurogram with the epidural spread of the dye, after negative aspiration for blood and CSF and in the absence of paresthesias. Again after negative aspiration, a 6 ml mixture containing 80 mg of Depo-medrol , and 2 ml of preservative free Normal Saline, and 2 ml of preservative free lidocaine 1% solution was injected and a washout of epidurogram was seen. Needle was withdrawn intact, skin was cleansed, and bandages were applied. COMPLICATIONS: None DISPOSITION / PLANS: The patient was placed in a supine position and transferred to the recovery area in a stable condition for observation. There was no evidence of lower extremity motor or sensory deficit after the procedure. Patient was discharged from the recovery room after meeting discharge criteria. Home discharge instructions were given to the patient by the staff. The patient was reexamined prior to discharge. The patient will schedule a follow up in the clinic in 2-4 weeks.
[2021-08-15] MEDS ORDERED: IV FLUID CONTINUATION 1,000 ML IV ONE (10:42)
--- NOTE | 2021-08-15 10:55 | FL ---
Fluoroscopy HISTORY: Pain 1 second fluoroscopy time supplied to the referring clinician. 1 intraoperative C-arm images documen t the procedure. See dictated report from anesthesia.
[2021-08-15 11:08] VITALS: BP 152/89; PULSE 94
== END 2021-08-15 11:15 | disposition home or self-care (01) ==
LOC: ORPAIN 09:23
PROVIDERS: ATTEND Specialist
DX: M47.816 Spondylosis without myelopathy or radiculopathy, lumbar region (principal)
CPT/HCPCS: 62323; J2250; J1030; J3010; Q9966; 99152

== ENCOUNTER → 2021-08-25 | Outpatient (CLI) | payer OTHER ==
[2021-08-25 18:52] LABS: Basophils # (A) 0.04 X 10*3/uL (0.00-0.10); Basophils % (A) 0.3 %; Eosinophils # (A) 0.01 X 10*3/uL (0.04-0.35); Eosinophils % (A) 0.1 %; HCT 52.7 % (39.6-50.0); HGB 16.3 g/dL (13.0-17.0); Immature Grans, Automated 0.6 %; Lymphocytes # (A) 2.24 X 10*3/uL (0.90-5.00); Lymphocytes % (A) 16.1 %; MCH 30.3 pg (27.0-32.0); MCHC 30.9 g/dL (32.0-37.0); Mean Platelet Volume 9.5 fL (9.5-12.2); Monocytes # (A) 0.74 X 10*3/uL (0.20-1.00); Monocytes % (A) 5.3 %; NRBC Per 100 WBC 0 /100 WBCS (0.0-0.0); Neutrophils # (A) 10.77 X 10*3/uL (1.80-7.70); Neutrophils % (A) 77.6 %; Platelet Count 503 X 10*3/uL (140-440); RBC 5.38 X 10*6/uL (4.40-5.60); RDW 15.1 % (11.5-14.5); WBC 13.89 X 10*3/uL (4.50-10.00)
[2021-08-25 19:12] LABS: African American GFR (CKD) 118.3 (60.0-200.0); Anion Gap 13.8 mmol/L (10.00-18.00); Blood Urea Nitrogen 12.7 mg/dL (9.0-27.0); Calcium 9.8 mg/dL (8.7-10.3); Carbon Dioxide 24.2 mmol/L (20.0-27.5); Magnesium 2.3 mg/dL (1.5-2.4); Non-African American GFR(CKD) 102.1 (60.0-200.0); Phosphorus 2.7 mg/dL (2.4-5.1); Potassium 5.1 mmol/L (3.5-5.5)
== END | disposition home or self-care (01) ==
LOC: LABWHC1 10:03
PROVIDERS: ATTEND Internal Medicine Gastroenterology
DX: K50.012 Crohn's disease of small intestine with intestinal obstruction (principal); R10.84 Generalized abdominal pain
CPT/HCPCS: 36415; 80051; 82310; 82550; 82565; 83735; 84100; 84520; 85025

== ENCOUNTER → 2021-09-12 | Outpatient (CLI) | payer OTHER ==
--- NOTE | 2021-09-12 13:47 | XR ---
EXAMINATION TYPE: XR humerus LT DATE OF EXAM: 09/12/2021 COMPARISON: NONE HISTORY: Pain TECHNIQUE: 2 views submitted. FINDINGS: The osseous structures are intact and no evidence of acute fracture or dislocation. AC joint arthrop athy. IMPRESSION: 1. No acute fracture or dislocation. 2. AC joint arthropathy.
--- NOTE | 2021-09-12 13:48 | XR ---
EXAMINATION TYPE: XR femur LT DATE OF EXAM: 09/12/2021 CLINICAL HISTORY: Pain TECHNIQUE: Two views of the left femur are obtained. COMPARISON: None FINDINGS: There is no acute fracture or dislocation. There is a mild concentric narrowing joint spac e with hypertrophic changes in the acetabulum which can be associated with femoral acetabular impinge ment. Narrowing of the medial compartment of the knee joint. Narrowing of patellofemoral joint. Surgi osman clip overlying the pelvis. IMPRESSION: 1. No acute fracture. 2. Hip arthropathy correlate for femoral acetabular impingement. 3. Knee arthropathy.
--- NOTE | 2021-09-12 13:58 | XR ---
EXAMINATION TYPE: XR Hip LT and AP Pelvis DATE OF EXAM: 09/12/2021 COMPARISON: NONE HISTORY: Pain TECHNIQUE: A single AP view of the pelvis is obtained. Two views of the left hip are obtained. FINDINGS: There is no acute fracture/dislocation evident in the pelvis. Concentric narrowing of the hip joint with hypertrophic change of the acetabulum. This is noted bilaterally. Hypertrophic changes lower lumbar spine. Surgical clip in the pelvis. Bony density along the greater trochanter appears well corticated and li tanja chronic. No definite acute fracture. Mottled sclerotic pattern to the left femoral head. IMPRESSION: 1. No definite acute fracture. Correlate for a hip arthropathy and femoral acetabular impingement. 2. Sclerosis involving the femoral head can sometimes be associated with osteonecrosis. Recommend fol low-up MRI.
--- NOTE | 2021-09-12 14:02 | XR ---
EXAMINATION TYPE: XR elbow complete LT DATE OF EXAM: 09/12/2021 COMPARISON: NONE HISTORY: Pain FINDINGS: Three views of the elbow demonstrate no pathologic joint effusion. The osseous structures are intact . There is no acute fracture or dislocation. Small olecranon spur noted. IMPRESSION: 1. No acute fracture or dislocation. If symptoms persist follow-up study in 7 to 10 days could be ob tained.
== END | disposition home or self-care (01) ==
LOC: RADXRMAIN 12:27
PROVIDERS: ATTEND Emergency Medicine
DX: S70.02XA Contusion of left hip, initial encounter (principal); S40.022A Contusion of left upper arm, initial encounter; M12.812 Other specific arthropathies, not elsewhere classified, left shoulder; M12.852 Other specific arthropathies, not elsewhere classified, left hip; M12.862 Other specific arthropathies, not elsewhere classified, left knee; X58.XXXA Exposure to other specified factors, initial encounter
CPT/HCPCS: 73502

== ENCOUNTER 2022-07-07 13:01 | Emergency (ER) | payer OTHER ==
[2022-07-07 13:10] VITALS: TEMP 98.3
[2022-07-07] MEDS ORDERED: SODIUM CHLORIDE 0.9% 500 ML 500 ML IV STA ×2 (13:22→17:31)
[2022-07-07 14:10] LABS: Basophils % (A) 1 %; Eosinophils # (A) 0.1 k/uL (0-0.7); Eosinophils % (A) 2 %; HCT 38.2 % (39.0-53.0); HGB 12.4 gm/dL (13.0-17.5); Lymphocytes # (A) 1.8 k/uL (1.0-4.8); Lymphocytes % (A) 35 %; MCH 31.6 pg (25.0-35.0); MCHC 32.5 g/dL (31.0-37.0); MCV 97.3 fL (80.0-100.0); Mean Platelet Volume 7.7; Monocytes # (A) 0.3 k/uL (0-1.0); Monocytes % (A) 5 %; Neutrophils # (A) 2.9 k/uL (1.3-7.7); Neutrophils % (A) 55 %; Platelet Count 209 k/uL (150-450); RBC 3.92 m/uL (4.30-5.90); RDW 13.7 % (11.5-15.5); WBC 5.3 k/uL (3.8-10.6)
[2022-07-07] MEDS ORDERED: MORPHINE SULFATE 4 MG/ML SYRINGE IVP STA ×2 (14:14→19:01)
[2022-07-07 14:19] LABS: INR 1.1 (<1.2); Partial Thromboplastin Time 31.5 sec (22.0-30.0); Prothrombin Time 11.7 sec (9.0-12.0)
--- NOTE | 2022-07-07 14:19 | ED ---
General Adult HPI - General Chief complaint: Abdominal Pain Stated complaint: Pain around osteotomy site Time Seen by Provider: 07/07/22 13:04 Source: EMS Mode of arrival: EMS Limitations: no limitations - History of Present Illness Initial comments: 47-year-old male with a past medical history of CVA, DVT, cholecystectomy, ostomy presents to the emergency room for pain around his ostomy site, moreso to the right. The pain started a few days ago. Patient denies any fevers. Patient states it is painful to press on the area. Denies any purulent drainage but states it is red. Patient had his ostomy performed here in 09/2021 but he was subsequently transferred to [facility] for higher level of care and revision. Patient states his ostomy dressings are currently being managed at home by home care nurses .Patient has no other complaints at this time including shortness of breath, chest pain, nausea or vomiting, headache, or visual changes. - Related Data Home Medications Medication Instructions Recorded Confirmed HYDROcodone/APAP 10-325MG [[place] 1 tab PO QID PRN 04/09/18 07/07/22 10-325] Cholecalciferol [Vitamin D3 (125 125 mcg PO DAILY 07/07/22 07/07/22 Mcg = 5000 Iu)] Enoxaparin [Lovenox] 80 mg SQ Q12H 07/07/22 07/07/22 Loperamide [Imodium] 4 mg PO Q6H 07/07/22 07/07/22 Metoprolol Tartrate [Lopressor] 12.5 mg PO BID 07/07/22 07/07/22 Ondansetron [Zofran] 4 mg PO Q6H PRN 07/07/22 07/07/22 Pantoprazole [Protonix] 40 mg PO DAILY 07/07/22 07/07/22 lisinopriL [Zestril] 2.5 mg PO DAILY 07/07/22 07/07/22 methocarbamoL [Methocarbamol] 750 mg PO TID 07/07/22 07/07/22 Allergies Allergy/AdvReac Type Severity Reaction Status Date / Time No Known Allergies Allergy Verified 07/07/22 17:16 Review of Systems ROS Statement: Those systems with pertinent positive or pertinent negative responses have been documented in the HPI. ROS Other: All systems not noted in ROS Statement are negative. Past Medical History Past Medical History: CVA/TIA, Deep Vein Thrombosis (DVT) Additional Past Medical History / Comment(s): Progressing left upper thigh pain and swelling and left leg weakness. 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 Crohns. Ostomy Bag placed in 09/2021. History of Any Multi-Drug Resistant Organisms: None Reported Past Surgical History: Cholecystectomy, Orthopedic Surgery Additional Past Surgical History / Comment(s): Arm surgery, right leg below knee amputation, ostomy (2021) Past Anesthesia/Blood Transfusion Reactions: No Reported Reaction Past Psychological History: No Psychological Hx Reported Smoking Status: Former smoker Past Alcohol Use History: None Reported Past Drug Use History: None Reported - Past Family History Father Additional Family Medical History / Comment(s): DAD IN HIS TWENTIES - CAUSE UNKNOWN. Mother Family Medical History: Diabetes Mellitus Brother(s) Family Medical History: Cancer Additional Family Medical History / Comment(s): Kidney cancer as a baby. General Exam Limitations: no limitations General appearance: alert, in no apparent distress Head exam: Present: atraumatic Eye exam: Present: normal appearance, PERRL, EOMI. Absent: scleral icterus, co njunctival injection ENT exam: Present: normal exam, mucous membranes moist Neck exam: Present: normal inspection, full ROM. Absent: tenderness Respiratory exam: Present: normal lung sounds bilaterally. Absent: respiratory distress, wheezes Cardiovascular Exam: Present: regular rate, normal rhythm, normal heart sounds GI/Abdominal exam: Present: tenderness (tenderness above ostomy site.), other (large open ostomy with tube ileostomy noted, erythema to the right of this site.). Absent: distended Course Vital Signs 07/07/22 07/07/22 13:05 14:45 Temperature 98.3 F Pulse Rate 95 100 Respiratory 18 Rate Blood Pressure 116/71 102/65 O2 Sat by Pulse 95 Oximetry Medical Decision Making - Medical Decision Making Vitals are stable. HPI and physical exam as documented. CBC CMP unremarkable. CT abdomen and pelvis does show a subcutaneous right lateral anterior abdominal wall collection measuring 6 x 2 cm that may reflect seroma or possible abscess. Clinically consistent with abscess given pain and erythema at site. Patient was transferred to [facility] on last admission and we will do the same this admission. Spoke with Dr. Blackwood who accepts. - Lab Data Result diagrams: 07/07/22 13:23 07/07/22 13:23 Lab Results 07/07/22 07/07/22 07/07/22 Range/Units 13:23 13:23 13:54 WBC 5.3 (3.8-10.6) k/uL RBC 3.92 L (4.30-5.90) m/uL Hgb 12.4 L (13.0-17.5) gm/dL Hct 38.2 L (39.0-53.0) % MCV 97.3 (80.0-100.0) fL MCH 31.6 (25.0-35.0) pg MCHC 32.5 (31.0-37.0) g/dL RDW 13.7 (11.5-15.5) % Plt Count 209 (150-450) k/uL MPV 7.7 Neutrophils % 55 % Lymphocytes % 35 % Monocytes % 5 % Eosinophils % 2 % Basophils % 1 % Neutrophils # 2.9 (1.3-7.7) k/uL Lymphocytes # 1.8 (1.0-4.8) k/uL Monocytes # 0.3 (0-1.0) k/uL Eosinophils # 0.1 (0-0.7) k/uL Basophils # 0.0 (0-0.2) k/uL PT 11.7 (9.0-12.0) sec INR 1.1 (<1.2) APTT 31.5 H (22.0-30.0) sec Sodium 136 L (137-145) mmol/L Potassium 5.0 (3.5-5.1) mmol/L Chloride 105 (98-107) mmol/L Carbon Dioxide 27 (22-30) mmol/L Anion Gap 4 mmol/L BUN 37 H (9-20) mg/dL Creatinine 0.74 (0.66-1.25) mg/dL Est GFR (CKD-EPI)AfAm >90 (>60 ml/min/1.73 sqM) Est GFR (CKD-EPI)NonAf >90 (>60 ml/min/1.73 sqM) Glucose 99 (74-99) mg/dL Calcium 9.7 (8.4-10.2) mg/dL Total Bilirubin 0.9 (0.2-1.3) mg/dL AST 44 (17-59) U/L ALT 46 (4-49) U/L Alkaline Phosphatase 122 (38-126) U/L Total Protein 6.8 (6.3-8.2) g/dL Albumin 2.9 L (3.5-5.0) g/dL Amylase 58 (30-110) U/L Lipase 97 (23-300) U/L Disposition Clinical Impression: Abdominal abscess, Complication of ostomy Disposition: OTHER INSTITUTION NOT DEFINED Is patient prescribed a controlled substance at d/c from ED?: No Referrals: Chong Ievy DO [Primary Care Provider] - 1-2 days Time of Disposition: 17:23 - Out of Hospital Transfer - Req. Specs Out of Hospital Transfer - Requested Specifics: Other Non-Acute ([facility])
[2022-07-07 14:31] LABS: ALT 46 U/L (4-49); AST 44 U/L (17-59); African American GFR (CKD) >90 (>60 ml/min/1.73 sqM); Albumin 2.9 g/dL (3.5-5.0); Alkaline Phosphatase 122 U/L (38-126); Amylase 58 U/L (30-110); Anion Gap 4 mmol/L; Blood Urea Nitrogen 37 mg/dL (9-20); Calcium 9.7 mg/dL (8.4-10.2); Carbon Dioxide 27 mmol/L (22-30); Chloride 105 mmol/L (98-107); Glucose 99 mg/dL (74-99); Lipase 97 U/L (23-300); Non-African American GFR(CKD) >90 (>60 ml/min/1.73 sqM); Sodium 136 mmol/L (137-145); Total Bilirubin 0.9 mg/dL (0.2-1.3); Total Protein 6.8 g/dL (6.3-8.2)
[2022-07-07] MEDS ORDERED: MORPHINE SULFATE 2 MG/ML SYRINGE IVP STA (14:49)
--- NOTE | 2022-07-07 14:55 | CT ---
EXAMINATION TYPE: CT abdomen pelvis w con DATE OF EXAM: 07/07/2022 COMPARISON: 11/01/2021 HISTORY: abd pain CT DLP: 2606 mGycm CONTRAST: CT scan of the abdomen and pelvis is performed without Oral Contrast and with IV Contrast, patient in jected with 100ml mL of Isovue 300. FINDINGS: LUNG BASES-: No visible nodule. No infiltrate. Right basilar parenchymal scarring with elevation rig ht hemidiaphragm. LIVER/GB: The gallbladder is surgically absent. No space occupying hepatic lesion. There is intrah epatic biliary ductal dilatation unchanged from prior study. PANCREAS: No inflammation. No distinct mass. SPLEEN: No splenic enlargement. No lesion seen. ADRENALS: No nodule. No thickening. KIDNEYS/BLADDER: No hydronephrosis. No nephrolithiasis. No distinct renal mass. Urinary bladder g rossly unremarkable. BOWEL: Partial right hemicolectomy changes with right-sided ileostomy and ileostomy catheter. Small b owel loops are of normal caliber as is the remaining: Much improved from prior study. There is no julian dence for intra-abdominal inflammatory change. Sigmoid diverticulosis without diverticulitis. Subcuta neous right lateral anterior abdominal wall collection measures 6.1 x 2.4 cm and may reflect seroma o r possibly abscess. See image 50 sequence 201. Correlate clinically. No intra-abdominal collection id entified. GENITAL ORGANS: No gross abnormality. LYMPH NODES: No greater than 1cm abdominal or pelvic lymph nodes are appreciated. AORTA: No significant abnormality. OSSEOUS STRUCTURES: No significant abnormality is seen. OTHER: Postoperative changes redemonstrated midline ventral wall abdomen wound with skin closure. New right-sided fat herniation seen at the closure site. There is an ileostomy noted with ileostomy cath eter noted. IMPRESSION: 1. Changes of right-sided ileostomy with ileostomy catheter. Right hemicolectomy change. There is no evidence for obstruction, intra-abdominal leak or abscess. 2. Subcutaneous right lateral anterior abdominal wall collection measures 6.1 x 2.4 cm and may reflec t seroma or possibly abscess. See image 50 sequence 201. Correlate clinically. 3.Postoperative changes redemonstrated midline ventral wall abdomen wound with skin closure. New righ t-sided fat herniation
[2022-07-07] MEDS ORDERED: AMPICILLIN-SULBACTAM 3 GM in SODIUM CHLORIDE 0.9% 100 ML IVPB STA (16:23)
[2022-07-07 18:29] VITALS: BP 121/66; PULSE 101; RESP 17
[2022-07-08] MEDS ORDERED: AMPICILLIN-SULBACTAM 3 GM in SODIUM CHLORIDE 0.9% 100 ML IVPB SCH ×2
== END 2022-07-07 19:59 | disposition other institution (70) ==
LOC: EC 13:01
DX: L02.211 Cutaneous abscess of abdominal wall (principal); Z79.899 Other long term (current) drug therapy; Z87.891 Personal history of nicotine dependence; Z90.49 Acquired absence of other specified parts of digestive tract; Z20.822 Contact with and (suspected) exposure to COVID-19
CPT/HCPCS: 99285; 96365; 96375; 96376; 96361; 12001; 36415; 80053; 82150; 83690; 85025; 85610; 85730; 87635; 74177; J2270 ×2; J0295; Q9967

== ENCOUNTER 2022-08-29 19:44 | Emergency (ER) | payer OTHER ==
[2022-08-29 19:56] VITALS: RESP 16; TEMP 98.2
[2022-08-29] MEDS ORDERED: HYDROmorphone 1 MG/ML 1 ML SYRINGE IVP STA (20:14)
[2022-08-29 20:49] LABS: Basophils % (A) 0 %; Eosinophils # (A) 0.1 k/uL (0-0.7); Eosinophils % (A) 1 %; HCT 42.6 % (39.0-53.0); HGB 13.8 gm/dL (13.0-17.5); Lymphocytes # (A) 2.3 k/uL (1.0-4.8); Lymphocytes % (A) 43 %; MCH 30.6 pg (25.0-35.0); MCHC 32.4 g/dL (31.0-37.0); MCV 94.7 fL (80.0-100.0); Mean Platelet Volume 8.4; Monocytes # (A) 0.3 k/uL (0-1.0); Monocytes % (A) 6 %; Neutrophils # (A) 2.6 k/uL (1.3-7.7); Neutrophils % (A) 48 %; Platelet Count 197 k/uL (150-450); RDW 13.6 % (11.5-15.5); WBC 5.4 k/uL (3.8-10.6)
[2022-08-29 21:04] LABS: ALT 146 U/L (4-49); AST 115 U/L (17-59); African American GFR (CKD) >90 (>60 ml/min/1.73 sqM); Albumin 3.2 g/dL (3.5-5.0); Alkaline Phosphatase 161 U/L (38-126); Anion Gap 8 mmol/L; Blood Urea Nitrogen 32 mg/dL (9-20); C Reactive Protein 1.1 mg/dL (<1.0); Calcium 10.2 mg/dL (8.4-10.2); Carbon Dioxide 23 mmol/L (22-30); Chloride 103 mmol/L (98-107); Glucose 80 mg/dL (74-99); Magnesium 1.9 mg/dL (1.6-2.3); Non-African American GFR(CKD) >90 (>60 ml/min/1.73 sqM); Potassium 4.3 mmol/L (3.5-5.1); Sodium 134 mmol/L (137-145); Total Bilirubin 1.8 mg/dL (0.2-1.3); Total Protein 7.2 g/dL (6.3-8.2)
[2022-08-29] MEDS ORDERED: HYDROmorphone 0.5 MG/0.5 ML SYRINGE IVP STA (21:57)
[2022-08-29] MEDS ORDERED: ONDANSETRON 4 MG/2 ML VIAL IVP STA (23:30)
[2022-08-30] MEDS ORDERED: HYDROmorphone 0.5 MG/0.5 ML SYRINGE IVP STA (01:13)
--- NOTE | 2022-08-30 01:14 | ED ---
General Adult HPI - General Chief complaint: Recheck/Abnormal Lab/Rx Stated complaint: Hemorrhage Time Seen by Provider: 08/29/22 19:48 Source: patient Mode of arrival: EMS Limitations: no limitations - History of Present Illness Initial comments: This patient is a 47-year-old man who presents 7 evaluation for bleeding at his abdominal wound site. The patient had surgical complications following colostomy, that required prolonged hospital care and then usp care. His surgical care had largely taken place at [facility]. He has been home and cares for his wound there is also visiting care who comes in. He has a large clear dressing over the ostomy and over the healing abdominal wall surgical site. Tonight through the clear dressing they observed an area of bright red blood. The patient denied having anemia symptoms, no chest pain, dyspnea, diaphoresis or syncope. -: hour(s) Location: abdomen Severity scale (1-10): 0 Consistency: now resolved Improves with: none Worsens with: none Associated Symptoms: denies other symptoms - Related Data Home Medications Medication Instructions Recorded Confirmed HYDROcodone/APAP 10-325MG [[place] 1 tab PO QID PRN 04/09/18 07/07/22 10-325] Cholecalciferol [Vitamin D3 (125 125 mcg PO DAILY 07/07/22 07/07/22 Mcg = 5000 Iu)] Enoxaparin [Lovenox] 80 mg SQ Q12H 07/07/22 07/07/22 Loperamide [Imodium] 4 mg PO Q6H 07/07/22 07/07/22 Metoprolol Tartrate [Lopressor] 12.5 mg PO BID 07/07/22 07/07/22 Ondansetron [Zofran] 4 mg PO Q6H PRN 07/07/22 07/07/22 Pantoprazole [Protonix] 40 mg PO DAILY 07/07/22 07/07/22 lisinopriL [Zestril] 2.5 mg PO DAILY 07/07/22 07/07/22 methocarbamoL [Methocarbamol] 750 mg PO TID 07/07/22 07/07/22 Allergies Allergy/AdvReac Type Severity Reaction Status Date / Time No Known Allergies Allergy Verified 08/29/22 19:49 Review of Systems ROS Statement: Those systems with pertinent positive or pertinent negative responses have been documented in the HPI. ROS Other: All systems not noted in ROS Statement are negative. Constitutional: Denies: fever, weakness Respiratory: Denies: cough, dyspnea Cardiovascular: Denies: chest pain, palpitations, syncope Gastrointestinal: Denies: abdominal pain, vomiting Musculoskeletal: Denies: back pain Skin: Denies: rash Neurological: Denies: headache Hematological/Lymphatic: Reports: as per HPI Past Medical History Past Medical History: CVA/TIA, Deep Vein Thrombosis (DVT) Additional Past Medical History / Comment(s): Progressing left upper thigh pain and swelling and left leg weakness. 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 Crohns. Ostomy Bag placed in 09/2021. History of Any Multi-Drug Resistant Organisms: None Reported Past Surgical History: Cholecystectomy, Orthopedic Surgery Additional Past Surgical History / Comment(s): Arm surgery, right leg below knee amputation, ostomy (2021) Past Anesthesia/Blood Transfusion Reactions: No Reported Reaction Past Psychological History: No Psychological Hx Reported Smoking Status: Former smoker Past Alcohol Use History: None Reported Past Drug Use History: None Reported - Past Family History Father Additional Family Medical History / Comment(s): DAD IN HIS TWENTIES - CAUSE UNKNOWN. Mother Family Medical History: Diabetes Mellitus Brother(s) Family Medical History: Cancer Additional Family Medical History / Comment(s): Kidney cancer as a baby. General Exam Limitations: no limitations General appearance: alert, in no apparent distress Head exam: Present: atraumatic, normocephalic Eye exam: Present: normal appearance Respiratory exam: Present: normal lung sounds bilaterally. Absent: respiratory distress, wheezes, rales, rhonchi, stridor, accessory muscle use Cardiovascular Exam: Present: regular rate, normal rhythm, normal heart sounds. Absent: systolic murmur, diastolic murmur, rubs, gallop GI/Abdominal exam: Present: soft, other (The patient does have large clear dressing over the surgical wound and over the ostomy. I did spend time at the bedside observing and do not find any bright red. There is some dark drainage from the ostomy site that had been collected in the bag but nothing acute.). Absent: distended, tenderness Extremities exam: Present: normal inspection, normal capillary refill. Absent: pedal edema Back exam: Present: normal inspection Neurological exam: Present: alert Skin exam: Present: warm, dry, intact, normal color. Absent: pallor Course Vital Signs 08/29/22 08/29/22 08/30/22 19:45 21:30 01:45 Temperature 98.2 F Pulse Rate 96 92 91 Respiratory 16 16 16 Rate Blood Pressure 113/72 98/75 104/67 O2 Sat by Pulse 94 L 93 L 97 Oximetry Medical Decision Making - Medical Decision Making At this point the patient's workup not revealing any anemia. He is observed in the ER for some time and there is no further red blood. From the patient's description it does sound as if there was an area of capillary bleeding related to the granulation tissue. I did discuss the patient's case with surgery here and they feel that if he is to be admitted he should go where his current surgical care is followed and that [facility]. I discussed with the patient that we would transfer him there and he states he would rather go home. He did agree to be observed here number hours we did not see any further blood. The patient then requested to go home rather than be transferred to [facility] he does appear to be stable to have further outpatient care including possibly requiring endoscopy of the patient ostomy if there is any further bloody or dark discharge Was pt. sent in by a medical professional or institution (NATHANIEL Elias, BUSINESS INTELLIGENCE ENGINEER, urgent care, hospital, or usp...) When possible be specific @ -[No] Did you speak to anyone other than the patient for history (EMS, parent, family, police, friend...)? What history was obtained from this source @ -[No] Did you review nursing and triage notes (agree or disagree)? Why? @ -[I reviewed and agree with nursing and triage notes] Were old charts reviewed (outside hosp., previous admission, EMS record, old EKG , old radiological studies, urgent care reports/EKG's, usp records)? Report findings @ -[old charts were reviewed] Differential Diagnosis (chest pain, altered mental status, abdominal pain women, abdominal pain men, vaginal bleeding, weakness, fever, dyspnea, syncope, headache, dizziness, GI bleed, back pain, seizure, CVA, palpatations, mental health, musculoskeletal)? @ -[Differential GI Bleed: Esophageal varices, aortoenteric fistula, Cecilia-Trejo, gastritis, peptic ulcer disease, diverticulosis, inflammatory bowel disease, hemorrhoids, fissure, colitis, malignancy, Meckels diverticulum, this is not meant to be an all-i nclusive list. EKG interpreted by me (3pts min.). @ -[As above] X-rays interpreted by me (1pt min.). @ -[None done] CT interpreted by me (1pt min.). @ -[None done] U/S interpreted by me (1pt. min.). @ -[None done] What testing was considered but not performed or refused? (CT, X-rays, U/S, labs)? Why? @ -[None] What meds were considered but not given or refused? Why? @ -[None] Did you discuss the management of the patient with other professionals (pro fessionals i.e. , PA, BUSINESS INTELLIGENCE ENGINEER, lab, RT, psych nurse, rn social services, director of market intelligence, teacher, u.s. revenue officer, casework specialist)? Give summary @ -[Case discussed with the surgeon Was smoking cessation discussed for >3mins.? @ -[No] Was critical care preformed (if so, how long)? @ -[No] Were there social determinants of health that impacted care today? How? (Homelessness, low income, unemployed, alcoholism, drug addiction, transportation, low edu. Level, literacy, decrease access to med. care, fci, rehab)? @ -[No] Was there de-escalation of care discussed even if they declined (Discuss DNR or withdrawal of care, Hospice)? DNR status @ -[No] What co-morbidities impacted this encounter? (DM, HTN, Smoking, COPD, CAD, Ca ncer, CVA, ARF, Chemo, Hep., AIDS, mental health diagnosis, sleep apnea, morbid obesity)? @ -[Healing abdominal wound adjacent ostomy Was patient admitted / discharged? Hospital course, mention meds given and route, prescriptions, significant lab abnormalities, going to OR and other pertinent info. @ -[As discussed above, the patient was offered transfer to [facility] and this point elects to go home returning if there is recurrence of symptoms Undiagnosed new problem with uncertain prognosis? @ -[No] Drug Therapy requiring intensive monitoring for toxicity (Heparin, Nitro, Insulin, Cardizem)? @ -[No] Were any procedures done? @ -[No] Diagnosis/symptom? @ -[Acute hemorrhage, resolved Acute, or Chronic, or Acute on Chronic? @ -[default] Uncomplicated (without systemic symptoms) or Complicated (systemic symptoms)? @ -[Uncomplicated Side effects of treatment? @ -[No] Exacerbation, Progression, or Severe Exacerbation? @ -[No] Poses a threat to life or bodily function? How? (Chest pain, [place], [place], pneumonia, PE, COPD, DKA, ARF, appy, cholecystitis, CVA, Diverticulitis, Homicidal, Suicidal, threat to staff... and all critical care pts) @ -[No] - Lab Data Result diagrams: 08/29/22 19:55 08/29/22 19:55 Lab Results 08/29/22 08/29/22 Range/Units 19:55 19:55 WBC 5.4 (3.8-10.6) k/uL RBC 4.50 (4.30-5.90) m/uL Hgb 13.8 (13.0-17.5) gm/dL Hct 42.6 (39.0-53.0) % MCV 94.7 (80.0-100.0) fL MCH 30.6 (25.0-35.0) pg MCHC 32.4 (31.0-37.0) g/dL RDW 13.6 (11.5-15.5) % Plt Count 197 (150-450) k/uL MPV 8.4 Neutrophils % 48 % Lymphocytes % 43 % Monocytes % 6 % Eosinophils % 1 % Basophils % 0 % Neutrophils # 2.6 (1.3-7.7) k/uL Lymphocytes # 2.3 (1.0-4.8) k/uL Monocytes # 0.3 (0-1.0) k/uL Eosinophils # 0.1 (0-0.7) k/uL Basophils # 0.0 (0-0.2) k/uL Sodium 134 L (137-145) mmol/L Potassium 4.3 (3.5-5.1) mmol/L Chloride 103 (98-107) mmol/L Carbon Dioxide 23 (22-30) mmol/L Anion Gap 8 mmol/L BUN 32 H (9-20) mg/dL Creatinine 0.77 (0.66-1.25) mg/dL Est GFR (CKD-EPI)AfAm >90 (>60 ml/min/1.73 sqM) Est GFR (CKD-EPI)NonAf >90 (>60 ml/min/1.73 sqM) Glucose 80 (74-99) mg/dL Calcium 10.2 (8.4-10.2) mg/dL Magnesium 1.9 (1.6-2.3) mg/dL Total Bilirubin 1.8 H (0.2-1.3) mg/dL AST 115 H (17-59) U/L ALT 146 H (4-49) U/L Alkaline Phosphatase 161 H (38-126) U/L C-Reactive Protein 1.1 H (<1.0) mg/dL Total Protein 7.2 (6.3-8.2) g/dL Albumin 3.2 L (3.5-5.0) g/dL Disposition Clinical Impression: Encounter for wound re-check Disposition: HOME SELF-CARE Condition: Good Instructions (If sedation given, give patient instructions): Acute Wound Care (ED) Is patient prescribed a controlled substance at d/c from ED?: No Referrals: Chong Ivey DO [Primary Care Provider] - 1-2 days
[2022-08-30 01:57] VITALS: BP 104/67; PULSE 91
== END 2022-08-30 01:57 | disposition home or self-care (01) ==
LOC: EC 19:44
DX: Z48.01 Encounter for change or removal of surgical wound dressing (principal); Z87.891 Personal history of nicotine dependence; Z90.49 Acquired absence of other specified parts of digestive tract
CPT/HCPCS: 36415; 80053; 83735; 85025; 86140; 99284; 96374; 96376 ×2; 96375; J2405; J1170 ×3

== ENCOUNTER 2022-09-10 17:22 | Inpatient (IN) | payer OTHER ==
[2022-09-10] MEDS ORDERED: SODIUM CHLORIDE 0.9% 1,000 ML IV STA ×3 (17:40→19:56)
[2022-09-10 18:14] LABS: Basophils # (A) 0.1 k/uL (0-0.2); Basophils % (A) 1 %; Eosinophils # (A) 0.2 k/uL (0-0.7); Eosinophils % (A) 2 %; HCT 42.8 % (39.0-53.0); HGB 14.3 gm/dL (13.0-17.5); Lymphocytes # (A) 2.7 k/uL (1.0-4.8); Lymphocytes % (A) 39 %; MCH 30.9 pg (25.0-35.0); MCHC 33.4 g/dL (31.0-37.0); MCV 92.3 fL (80.0-100.0); Monocytes # (A) 0.4 k/uL (0-1.0); Monocytes % (A) 6 %; Neutrophils # (A) 3.4 k/uL (1.3-7.7); Neutrophils % (A) 50 %; Platelet Count 227 k/uL (150-450); RBC 4.64 m/uL (4.30-5.90); RDW 13.7 % (11.5-15.5); WBC 6.8 k/uL (3.8-10.6)
[2022-09-10 18:26] LABS: INR 1.1 (<1.2); Partial Thromboplastin Time 30.4 sec (22.0-30.0); Prothrombin Time 11.4 sec (9.0-12.0)
[2022-09-10 18:27] LABS: ALT 176 U/L (4-49); AST 96 U/L (17-59); African American GFR (CKD) 85 (>60 ml/min/1.73 sqM); Albumin 3.5 g/dL (3.5-5.0); Alkaline Phosphatase 152 U/L (38-126); Anion Gap 11 mmol/L; Blood Urea Nitrogen 93 mg/dL (9-20); Calcium 9.1 mg/dL (8.4-10.2); Carbon Dioxide 25 mmol/L (22-30); Chloride 91 mmol/L (98-107); Glucose 99 mg/dL (74-99); Magnesium 3.9 mg/dL (1.6-2.3); Non-African American GFR(CKD) 73 (>60 ml/min/1.73 sqM); Potassium 3.7 mmol/L (3.5-5.1); Sodium 127 mmol/L (137-145); Total Bilirubin 2.3 mg/dL (0.2-1.3); Total Protein 7.6 g/dL (6.3-8.2)
[2022-09-10] MEDS ORDERED: SODIUM CHLORIDE 0.9% 1,000 ML IV ONE ×2 (18:43→22:39)
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
--- NOTE | 2022-09-10 19:10 | XR ---
EXAMINATION TYPE: XR chest 2V DATE OF EXAM: 09/10/2022 COMPARISON: 10/31/2021 HISTORY: Chest pain TECHNIQUE: Frontal and lateral views of the chest are obtained. FINDINGS: There is no focal air space opacity. No evidence for pneumothorax. No pleural effusion. Chronic elevation right hemidiaphragm. Right basi lar parenchymal scarring. The cardiac silhouette size is within normal limits. The osseous structures are grossly intact. IMPRESSION: 1. No acute cardiopulmonary process.
--- NOTE | 2022-09-10 19:18 | CT ---
EXAMINATION TYPE: CT abdomen pelvis w con DATE OF EXAM: 09/10/2022 COMPARISON: 07/07/2022 HISTORY: gen pain, increased ostomy output and weakness CT DLP: 2121 mGycm CONTRAST: CT scan of the abdomen and pelvis is performed without Oral Contrast and with IV Contrast, patient in jected with 85 mL of Isovue 300. FINDINGS: LUNG BASES-: No visible nodule. No infiltrate. Basilar atelectasis and or parenchymal scar. LIVER/GB: Gallbladder is surgically absent. No space occupying hepatic lesion. Intrahepatic biliary d uctal dilatation is demonstrated. PANCREAS: No inflammation. No distinct mass. SPLEEN: No splenic enlargement. No lesion seen. ADRENALS: No nodule. No thickening. KIDNEYS/BLADDER: No hydronephrosis. No nephrolithiasis. No distinct renal mass. Urinary bladder g rossly unremarkable. BOWEL: Partial right hemicolectomy changes with right-sided ileostomy and ileostomy catheter. Small b owel loops are of normal caliber as is the remaining colon. There is no evidence for intra-abdominal inflammatory change. Sigmoid diverticulosis without diverticulitis. Subcutaneous right lateral anter ior abdominal wall collection has resolved. No intra-abdominal collection identified. GENITAL ORGANS: No gross abnormality. LYMPH NODES: No greater than 1cm abdominal or pelvic lymph nodes are appreciated. AORTA: No significant abnormality. OSSEOUS STRUCTURES: No significant abnormality is seen. OTHER: Postoperative changes redemonstrated midline ventral wall abdomen wound with skin closure. St able right-sided fat herniation seen at the closure site. There is an ileostomy noted with ileostomy catheter noted. IMPRESSION: 1. Essentially stable postoperative appearance of the abdomen with ileostomy and ileostomy catheter n oted. 2. Previously noted seroma has resolved or has been drained in the interval.
[2022-09-10] MEDS ORDERED: NALOXONE 0.4 MG/ML 1 ML VIAL IV PRN (19:56)
[2022-09-10] MEDS ORDERED: ALBUTEROL NEBULIZED 2.5 MG/3 ML INHALATION PRN (19:58)
[2022-09-10] MEDS: KETOROLAC 15 MG/ML 1 ML VIAL IVP PRN (20:10)
[2022-09-10] MEDS: ENOXAPARIN 80 MG/0.8 ML SYRINGE SQ SCH (20:13)
--- NOTE | 2022-09-10 20:13 | ED ---
General Adult HPI - General Chief complaint: Weakness Stated complaint: Weakness Time Seen by Provider: 09/10/22 17:33 Source: patient, family, EMS, RN notes reviewed, old records reviewed Mode of arrival: EMS - History of Present Illness Initial comments: Patient is a 47-year-old male who presents emergency Department complaining of weakness. Is a history of prior stroke, DVTs on anticoagulation, Crohn's disease status post colectomy and colostomy bag placement. States he has noticed increased output from her colostomy bag. Since to be more watery. Endorses generalized abdominal discomfort. Denies chest pain or shortness of breath. Endorses generalized weakness. Denies any recent falls or injuries. Denies any fevers or chills. Denies any cough. No known sick contacts. No urinary complaints. Denies nausea or vomiting. Denies constipation. Denies any blood in the stool. Presents for further evaluation at this time.Patient has somewhat chronically bedbound, and is to By family members at home. - Related Data Home Medications Medication Instructions Recorded Confirmed Enoxaparin [Lovenox] 80 mg SQ Q12H 07/07/22 09/10/22 Metoprolol Tartrate [Lopressor] 12.5 mg PO BID 07/07/22 09/10/22 Pantoprazole [Protonix] 40 mg PO DAILY 07/07/22 09/10/22 lisinopriL [Zestril] 2.5 mg PO DAILY 07/07/22 09/10/22 methocarbamoL [Methocarbamol] 750 mg PO TID 07/07/22 09/10/22 Albuterol Sulfate [Albuterol 1 - 2 puff PO RT-Q4H PRN 09/10/22 09/10/22 Sulfate Hfa] Allergies Allergy/AdvReac Type Severity Reaction Status Date / Time No Known Allergies Allergy Verified 09/10/22 18:42 Review of Systems ROS Statement: Those systems with pertinent positive or pertinent negative responses have been documented in the HPI. Review of Systems: CONST: Denies fever EYES: Denies blurry vision ENT: Denies nasal congestion C/V: Denies Chest pain RESP: Denies shortness of breath GI: Endorses generalized abdominal pain : Denies dysuria SKIN: Denies rash. MSK: Denies joint pain. NEURO: Denies headache ROS Other: All systems not noted in ROS Statement are negative. Past Medical History Past Medical History: CVA/TIA, Deep Vein Thrombosis (DVT) Additional Past Medical History / Comment(s): Progressing left upper thigh pain and swelling and left leg weakness. 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 Crohns. Ostomy Bag placed in 09/2021. History of Any Multi-Drug Resistant Organisms: None Reported Past Surgical History: Cholecystectomy, Orthopedic Surgery Additional Past Surgical History / Comment(s): Arm surgery, right leg below knee amputation, ostomy (2021) Past Anesthesia/Blood Transfusion Reactions: No Reported Reaction Past Psychological History: No Psychological Hx Reported Smoking Status: Former smoker Past Alcohol Use History: None Reported Past Drug Use History: None Reported - Past Family History Father Additional Family Medical History / Comment(s): DAD IN HIS TWENTIES - CAUSE UNKNOWN. Mother Family Medical History: Diabetes Mellitus Brother(s) Family Medical History: Cancer Additional Family Medical History / Comment(s): Kidney cancer as a baby. General Exam - General Exam Comments Initial Comments: General: Appears in no acute distress. HEAD: Normal with no signs of head trauma. EYES: PERRLA, EOMI, conjunctiva normal, no discharge. ENT: Hearing grossly intact, normal oropharynx. RESPIRATORY: Clear breath sounds bilaterally. No wheezes, rales, or rhonchi. C/V: Regular rate and rhythm. S1 and S2 auscultated, peripheral pulses 2+ and intact throughout. Borderline hypotension. ABD: Abdomen is soft, colostomy is in place and is draining. Large amount of watery brown stool. No blood. No focal tenderness. No distention. EXT: Normal range of motion, no obvious deformity SKIN: No rashes or lesions observed on exposed skin. NEURO: Alert and oriented x 4. Cranial nerves II-XII intact. No focal sensory or strength deficits. Course Vital Signs 09/10/22 09/10/22 09/10/22 17:26 19:10 21:00 Temperature 97.6 F Pulse Rate 91 85 83 Respiratory 18 16 16 Rate Blood Pressure 97/56 99/52 106/53 O2 Sat by Pulse 96 99 99 Oximetry Medical Decision Making - Medical Decision Making Was pt. sent in by a medical professional or institution (, PA, [employer], urgent care, hospital, or care home...) When possible be specific @ -No Did you speak to anyone other than the patient for history (EMS, parent, family, police, friend...)? What history was obtained from this source @ -Spoke With family who assist in the patient's history, including the recent increased weakness. Did you review nursing and triage notes (agree or disagree)? Why? @ -I reviewed and agree with nursing and triage notes Were old charts reviewed (outside hosp., previous admission, EMS record, old EKG, old radiological studies, urgent care reports/EKG's, care home records)? Report findings @ -No old charts were reviewed Differential Diagnosis (chest pain, altered mental status, abdominal pain women, abdominal pain men, vaginal bleeding, weakness, fever, dyspnea, syncope, headache, dizziness, GI bleed, back pain, seizure, CVA, palpatations, mental health, musculoskeletal)? @ -Differential Abdominal Pain Men: Appendicitis, cholecystitis, diverticulosis, ischemic bowel, pancreatitis, hepatitis, UTI, gastroenteritis, AAA, incarcerated hernia, bowel obstruction, constipation, inflammatory bowel, hepatitis, peptic ulcer disease, splenic infarction, perforated viscus, testicular torsion, this is not meant to be an all-inclusive list Differential Weakness: Hypoglycemia, shock, sepsis, hyponatremia, anemia, infection, MT, ETOH, adverse medicine reaction, overdose, stroke, this is not meant to be an all-inclusive list. EKG interpreted by me (3pts min.). @ -As above X-rays interpreted by me (1pt min.). @ -Chest x-ray reveals no obvious acute cardiopulmonary process. CT interpreted by me (1pt min.). @ -CT brain reveals no obvious acute intracranial process or injury. CT abdomen and pelvis reveals no obvious acute intra-abdominal process, per radiology. U/S interpreted by me (1pt. min.). @ -None done What testing was considered but not performed or refused? (CT, X-rays, U/S, labs)? Why? @ -None What meds were considered but not given or refused? Why? @ -None Did you discuss the management of the patient with other professionals (professionals i.e. , PA, [employer], lab, RT, psych nurse, bilingual social worker, supervisor pigment making, teacher, [employer] plans staff officer, rehabilitation caseworker)? Give summary @ -Discussed with TRINA Shah of [facility] who accepted the patient. Was smoking cessation discussed for >3mins.? @ -No Was critical care preformed (if so, how long)? @ -Yes, 36 minutes Were there social determinants of health that impacted care today? How? (Homelessness, low income, unemployed, alcoholism, drug addiction, transportation, low edu. Level, literacy, decrease access to med. care, fpc, rehab)? @ -No Was there de-escalation of care discussed even if they declined (Discuss DNR or withdrawal of care, Hospice)? DNR status @ -No What co-morbidities impacted this encounter? (DM, HTN, Smoking, COPD, CAD, Cancer, CVA, ARF, Chemo, Hep., AIDS, mental health diagnosis, sleep apnea, morbid obesity)? @ -Ileostomy secondary to prior surgeries due to Crohn's Was patient admitted / discharged? Hospital course, mention meds given and route, prescriptions, significant lab abnormalities, going to OR and other pertinent info. @ -Based on the patient's presentation and physical exam, I'm concerned for dehydration as he does have increased output from his ileostomy. He has diarrhea. We will obtain CT on pelvis as well as abdominal labs. He was in agreement this plan. He will receive multiple fluid boluses as clinically he does appear dehydrated. Patient is mildly hypotensive witha pressure 97/56. He was in agreement with this plan. EKG showed no signs of acute ischemia. Imaging is unremarkable. Labs reveal a hyponatremia of 127 and hypochloremia of 91. Nonspecific minimal LFT derangements. Troponin is undetectable. Vital signs negative. Urine is pending. At this time, I did discuss the results with the patient. Blood pressure is improved. I would like to admit him for dehydration. I ordered a total of 3 L fluid bolus for the patient. Started the patient on maintenance fluids. Blood pressure is improved at this time to 106 systolic. He was in agreement with this plan. I spoke with the admitting team, Pablo of [facility] who accepted the patient. GI was consulted due to the history of Crohn's disease and increased output. Undiagnosed new problem with uncertain prognosis? @ -No Drug Therapy requiring intensive monitoring for toxicity (Heparin, Nitro, Ins ulin, Cardizem)? @ -No Were any procedures done? @ -No Diagnosis/symptom? @ -Dehydration, weakness, hyponatremia, diarrhea Acute, or Chronic, or Acute on Chronic? @ -Acute Uncomplicated (without systemic symptoms) or Complicated (systemic symptoms)? @ -Complicated Side effects of treatment? @ -No Exacerbation, Progression, or Severe Exacerbation? @ -No Poses a threat to life or bodily function? How? (Chest pain, USA, MT, pneumonia, PE, COPD, DKA, ARF, appy, cholecystitis, CVA, Diverticulitis, Homicidal, Suicidal, threat to staff... and all critical care pts) @ -Yes - Lab Data Result diagrams: 09/10/22 17:39 09/10/22 17:39 Lab Results 09/10/22 09/10/22 09/10/22 Range/Units 17:39 17:39 17:39 WBC 6.8 (3.8-10.6) k/uL RBC 4.64 (4.30-5.90) m/uL Hgb 14.3 (13.0-17.5) gm/dL Hct 42.8 (39.0-53.0) % MCV 92.3 (80.0-100.0) fL MCH 30.9 (25.0-35.0) pg MCHC 33.4 (31.0-37.0) g/dL RDW 13.7 (11.5-15.5) % Plt Count 227 (150-450) k/uL MPV 8.0 Neutrophils % 50 % Lymphocytes % 39 % Monocytes % 6 % Eosinophils % 2 % Basophils % 1 % Neutrophils # 3.4 (1.3-7.7) k/uL Lymphocytes # 2.7 (1.0-4.8) k/uL Monocytes # 0.4 (0-1.0) k/uL Eosinophils # 0.2 (0-0.7) k/uL Basophils # 0.1 (0-0.2) k/uL PT 11.4 (9.0-12.0) sec INR 1.1 (<1.2) APTT 30.4 H (22.0-30.0) sec Sodium 127 L (137-145) mmol/L Potassium 3.7 (3.5-5.1) mmol/L Chloride 91 L (98-107) mmol/L Carbon Dioxide 25 (22-30) mmol/L Anion Gap 11 mmol/L BUN 93 H (9-20) mg/dL Creatinine 1.18 (0.66-1.25) mg/dL Est GFR (CKD-EPI)AfAm 85 (>60 ml/min/1.73 sqM) Est GFR (CKD-EPI)NonAf 73 (>60 ml/min/1.73 sqM) Glucose 99 (74-99) mg/dL Plasma Lactic Acid Edmund (0.7-2.0) mmol/L Calcium 9.1 (8.4-10.2) mg/dL Magnesium 3.9 H (1.6-2.3) mg/dL Total Bilirubin 2.3 H (0.2-1.3) mg/dL AST 96 H (17-59) U/L ALT 176 H (4-49) U/L Alkaline Phosphatase 152 H (38-126) U/L Troponin I (0.000-0.034) ng/mL Total Protein 7.6 (6.3-8.2) g/dL Albumin 3.5 (3.5-5.0) g/dL Influenza Type A (PCR) (Not Detectd) Influenza Type B (PCR) (Not Detectd) RSV (PCR) (Not Detectd) SARS-CoV-2 (PCR) (Not Detectd) 09/10/22 09/10/22 09/10/22 Range/Units 17:39 17:39 17:39 WBC (3.8-10.6) k/uL RBC (4.30-5.90) m/uL Hgb (13.0-17.5) gm/dL Hct (39.0-53.0) % MCV (80.0-100.0) fL MCH (25.0-35.0) pg MCHC (31.0-37.0) g/dL RDW (11.5-15.5) % Plt Count (150-450) k/uL MPV Neutrophils % % Lymphocytes % % Monocytes % % Eosinophils % % Basophils % % Neutrophils # (1.3-7.7) k/uL Lymphocytes # (1.0-4.8) k/uL Monocytes # (0-1.0) k/uL Eosinophils # (0-0.7) k/uL Basophils # (0-0.2) k/uL PT (9.0-12.0) sec INR (<1.2) APTT (22.0-30.0) sec Sodium (137-145) mmol/L Potassium (3.5-5.1) mmol/L Chloride (98-107) mmol/L Carbon Dioxide (22-30) mmol/L Anion Gap mmol/L BUN (9-20) mg/dL Creatinine (0.66-1.25) mg/dL Est GFR (CKD-EPI)AfAm (>60 ml/min/1.73 sqM) Est GFR (CKD-EPI)NonAf (>60 ml/min/1.73 sqM) Glucose (74-99) mg/dL Plasma Lactic Acid Edmund 1.8 (0.7-2.0) mmol/L Calcium (8.4-10.2) mg/dL Magnesium (1.6-2.3) mg/dL Total Bilirubin (0.2-1.3) mg/dL AST (17-59) U/L ALT (4-49) U/L Alkaline Phosphatase (38-126) U/L Troponin I <0.012 (0.000-0.034) ng/mL Total Protein (6.3-8.2) g/dL Albumin (3.5-5.0) g/dL Influenza Type A (PCR) Not Detected (Not Detectd) Influenza Type B (PCR) Not Detected (Not Detectd) RSV (PCR) Not Detected (Not Detectd) SARS-CoV-2 (PCR) Not Detected (Not Detectd) - EKG Data -: EKG Interpreted by Me EKG Comments: 12-lead Electrocardiogram Interpretation Note EKG was reviewed and interpreted by myself. 12-lead ECG performed at 1733 is interpreted by me as revealing normal sinus rhythm at a rate of 96 beats per minute. [place] is normal. MI interval is 170 ms, QRS duration is 124 ms, QTc is 410 ms.. There were no ST or T wave abnormalities to suggest myocardial ischemia or injury. R wave progression across the precordium was satisfactory. By my interpretation this EKG is non-diagnostic for acute ischemia. Critical Care Time Critical Care Time: Yes Total Critical Care Time: 36 Disposition Clinical Impression: Dehydration, Weakness, Diarrhea Disposition: ADMITTED IP TO THIS [facility] Condition: Serious Time of Disposition: 19:50
[2022-09-10] MEDS ORDERED: traMADol 50 MG TAB PO PRN (22:40)
[2022-09-10] MEDS: ONDANSETRON 4 MG/2 ML VIAL IVP PRN (23:07)
[2022-09-11] MEDS: KETOROLAC 15 MG/ML 1 ML VIAL IVP PRN (03:43)
[2022-09-11] MEDS ORDERED: KETOROLAC 15 MG/ML 1 ML VIAL IVP STA (08:30)
--- NOTE | 2022-09-11 09:00 | US ---
EXAMINATION TYPE: US liver DATE OF EXAM: 09/11/2022 COMPARISON: recent CT 09/10/2022 CLINICAL INDICATION: Male, 47 years old with history of elevated lfts; Elevated LFT's, GB removed TECHNIQUE: Multiple sonographic images of the right upper quadrant are obtained. FINDINGS: EXAM MEASUREMENTS: Liver Length: 17.9 cm CBD: Unable to visualize Right Kidney: 9.8 x 5.6 x 5.2 cm WAITER/WAITRESS FORMAL NOTES: Extremely limited exam/ nondiagnostic due to large colostomy bag, overlying bow el gas, and pt unable to tolerate probe pressure Pancreas: Obscured by bowel gas Liver: Limited views due to above Gallbladder: Surgically absent CBD: Unable to view due to limitations above Right Kidney: Limited views due to limitations above Pancreas is obscured by overlying bowel gas. Significantly limited views of the liver without obvious gross abnormality. Gallbladder is surgically absent. The common bile duct is not visualized due to o verlying bowel gas. Limited views of the right kidney which appear grossly unremarkable. IMPRESSION: Extremely limited exam/ nondiagnostic due to large colostomy bag, overlying bowel gas, and pt unable to tolerate probe pressure.
[2022-09-11] MEDS: ENOXAPARIN 80 MG/0.8 ML SYRINGE SQ SCH ×2 (10:15→20:47)
[2022-09-11] MEDS: PANTOPRAZOLE 40 MG TABLET PO SCH (10:15)
[2022-09-11] MEDS: METOPROLOL TARTRATE 12.5 MG TAB PO SCH ×2 (10:17→20:47)
[2022-09-11 10:24] LABS: Albumin 3.5 g/dL (3.5-5.0); Albumin/Globulin Ratio 0.9; Bilirubin,Unconjugated 1.3 mg/dL (0.0-1.1); Total Bilirubin 1.5 mg/dL (0.2-1.3); Total Protein 7.5 g/dL (6.3-8.2)
[2022-09-11 11:06] LABS: Basophils # (A) 0.02 X 10*3/uL (0.00-0.10); Basophils % (A) 0.4 %; Eosinophils # (A) 0.13 X 10*3/uL (0.04-0.35); Eosinophils % (A) 2.3 %; HCT 35.3 % (39.6-50.0); HGB 11.8 d/dL (12.0-15.0); Lymphocytes % (A) 35.5 %; MCH 30.7 pg (27.0-32.0); MCHC 33.4 d/dL (32.0-37.0); MCV 91.9 FL (80.0-97.0); Mean Platelet Volume 10.6 FL (9.5-12.2); Monocytes # (A) 0.52 X 10*3/uL (0.20-1.00); Monocytes % (A) 9.2 %; NRBC Per 100 WBC 0 X 10*3/uL (0.00-0.01); Neutrophils # (A) 2.95 X 10*3/uL (1.80-7.70); Neutrophils % (A) 52.4 %; Platelet Count 200 X 10*3/uL (140-440); RBC 3.84 X 10*6/uL (4.40-5.60); RDW 13.9 % (11.5-14.5); WBC 5.63 X 10*3/uL (4.50-10.00)
[2022-09-11 11:17] LABS: Blood Urea Nitrogen 60.9 mg/dL (9.0-27.0); Calcium 8.4 mg/dL (8.7-10.3); Carbon Dioxide 23.8 mmol/L (21.6-31.8); Chloride 102 mmol/L (96-109); Glucose 84 mg/dL (70-110); Potassium 3.2 mmol/L (3.5-5.5); Sodium 137 mmol/L (135-145)
[2022-09-11] MEDS ORDERED: Potassium Replacement Protocol 1 EACH MISC MISCELLANE PRN (11:42)
[2022-09-11] MEDS ORDERED: Magnesium Replacement Protocol 1 EACH MISC MISCELLANE PRN (11:42)
[2022-09-11 11:45] LABS: Erythrocyte Sedimentation Rate 34 mm/Hr (0-15)
--- NOTE | 2022-09-11 11:46 | P.HPIM ---
History of Present Illness Is a pleasant 47 years old male with past medical history of CVA/TIA, Deep Vein Thrombosis , Progressing left upper thigh pain and swelling and left leg weakness., Crohns. right leg below knee amputation Patient brought into ER via EMS with complaints of worsening weakness. Per EMS patients family, he is not acting normal and is less responsive than what he normally is. When I saw the patient he was awake and alert and oriented, little lethargic and looks tired. Patient says that the [facility] and he came in to the hospital is t hat he has been feeling weak for the last 2 days. Patient is bedbound mostly wheelchair, he has history of right BKA, also he has history of right lower quadrant ileostomy and he has central line in the left upper chest for TPN since March. Patient says that he has chronic abdominal pain in the middle of the abdomen and around his ileostomy bag about 5/10 felt like burning, states that it was 7/10 before which is a slightly worsened than his baseline. He is not in distress due to pain. He says that usually he has 2 bowel movements through his ileostomy back normally however recently he is been having 3-4 bowel movements and more loose however when I examined him he has watery bowel movements in his ileostomy bag. Also patient is on Lovenox 80 mg twice daily at home for he has history of DVT. He denies any urinary complaints. He denies chest pain dyspnea or coughing. No headache dizziness weakness or numbness. No smoking or alcohol. He follow-up with a surgeon Dr. Zee at [facility] and he supposed to refer him to GI specialist at [facility]. His PCP is Dr. Ivey and he lives in [facility] on Patient is mildly hypotensive, systolic blood pressure usually 100-120, currently in the 90s to 100 other Vital signs stable CBC, INR is unremarkable Sodium is 127. Creatinine 1.18. Magnesium 3.9. Total bilirubin is 2.3, AST 96 which is elevated and ALT 176. Influenza, [place] and RSV viruses are undetected CT of the brain: No acute process CT of the abdomen and pelvis showing postoperative changes with no acute changes. He received 5 L of normal saline and admitted with GI consult for increased right lower quadrant ostomy output, and review of his history of Crohn's disease. C. diff is negative Influenza, PHYSICAL THERAPY AID, coronavirus are undetected Review of Systems Review of systems CONSTITUTIONAL: No fever, no malaise, no fatigue. HEENT: No recent visual problems or hearing problems. Denied any sore throat. CARDIOVASCULAR: No orthopnea, PND, no palpitations, no syncope. PULMONARY: No shortness of breath, no cough, no hemoptysis. GASTROINTESTINAL: No diarrhea, no nausea, no vomiting, no abdominal pain. Normoactive bowel sounds. NEUROLOGICAL: No headaches, no weakness, no numbness. HEMATOLOGICAL: Denies any bleeding or petechiae. GENITOURINARY: Denies any burning micturition, frequency, or urgency. MUSCULOSKELETAL/RHEUMATOLOGICAL: Denies any joint pain, swelling, or any muscle pain. ENDOCRINE: Denies any polyuria or polydipsia. Past Medical History Past Medical History: CVA/TIA, Deep Vein Thrombosis (DVT) Additional Past Medical History / Comment(s): left sided weakness, right hand contracture, Hx CVA in 2012, during surgery to repair blood clot, states still has DVT in right arm. Crohns. Ostomy Bag placed in 09/2021. History of Any Multi-Drug Resistant Organisms: None Reported Past Surgical History: Cholecystectomy, Orthopedic Surgery Additional Past Surgical History / Comment(s): Arm surgery, right leg below knee amputation 2017, , ostomy (2021) Past Anesthesia/Blood Transfusion Reactions: No Reported Reaction Past Psychological History: No Psychological Hx Reported Additional Psychological History / Comment(s): PT STATED FEW DAYS AGO STARTED HAVING PAIN IN UPPER THIGH AND SWELLING THAT HAS PROGERESSED Smoking Status: Former smoker Past Alcohol Use History: None Reported Additional Past Alcohol Use History / Comment(s): QUIT SMOKING IN 2017, STARTED SMOKING AT AGE 16, 1PPD. Past Drug Use History: None Reported - Past Family History Father Additional Family Medical History / Comment(s): DAD IN HIS TWENTIES - CAUSE UNKNOWN. Mother Family Medical History: Diabetes Mellitus Brother(s) Family Medical History: Cancer Additional Family Medical History / Comment(s): Kidney cancer as a baby. Medications and Allergies Home Medications Medication Instructions Recorded Confirmed Type Enoxaparin [Lovenox] 80 mg SQ Q12H 07/07/22 09/10/22 History Metoprolol Tartrate [Lopressor] 12.5 mg PO BID 07/07/22 09/10/22 History Pantoprazole [Protonix] 40 mg PO DAILY 07/07/22 09/10/22 History lisinopriL [Zestril] 2.5 mg PO DAILY 07/07/22 09/10/22 History methocarbamoL [Methocarbamol] 750 mg PO TID 07/07/22 09/10/22 History Albuterol Sulfate [Albuterol 1 - 2 puff PO RT-Q4H PRN 09/10/22 09/10/22 History Sulfate Hfa] Allergies Allergy/AdvReac Type Severity Reaction Status Date / Time No Known Allergies Allergy Verified 09/10/22 18:42 Physical Exam Vitals: Vital Signs Temp Pulse Resp BP BP Pulse Ox FiO2 09/11/22 09:30 94 L 21 09/11/22 08:00 98.1 F 16 103/60 98 09/11/22 06:15 98.2 F 63 18 99/48 95 09/11/22 04:43 79 16 102/48 96 09/10/22 23:00 81 18 103/55 96 09/10/22 21:00 83 16 106/53 99 09/10/22 19:10 85 16 99/52 99 09/10/22 17:26 97.6 F 91 18 97/56 96 Intake and Output 09/10/22 09/11/22 09/11/22 22:59 06:59 14:59 Output Total 1600 Balance -1600 Output: Urine 600 Stool 1000 Other: Weight 90.718 kg 90.718 kg -GENERAL: The patient is alert and oriented x3, not in any acute distress. Well developed, well nourished. Patient is lethargic HEENT: Pupils are round and equally reacting to light. EOMI. No scleral icterus. No conjunctival pallor. Normocephalic, atraumatic. No pharyngeal erythema. No thyromegaly. CARDIOVASCULAR: S1 and S2 present. No murmurs, rubs, or gallops. -PULMONARY: Chest is clear to auscultation, no wheezing , no crackles. Chest Central line -ABDOMEN: Soft, nontender, normoactive bowel sounds. No palpable organomegaly. Right lower quadrant large ileostomy bag, with surrounding abdominal wall scarring. With surrounding tenderness, no rebound tenderness or guarding MUSCULOSKELETAL: No joint swelling or deformity. -EXTREMITIES: No cyanosis, clubbing, or pedal edema. Right BKA NEUROLOGICAL: Gross neurological examination did not reveal any focal deficits. SKIN: No rashes. no petechiae. Results CBC & Chem 7: 09/11/22 07:36 09/11/22 07:36 Labs: Abnormal Lab Results - Last 24 Hours (Table) 09/10/22 09/10/22 09/11/22 Range/Units 17:39 17:39 07:36 RBC 3.84 L (4.40-5.60) X 10*6/uL Hgb 11.8 L (12.0-15.0) d/dL Hct 35.3 L (39.6-50.0) % APTT 30.4 H (22.0-30.0) sec Sodium 127 L (137-145) mmol/L Potassium (3.5-5.5) mmol/L Chloride 91 L (98-107) mmol/L BUN 93 H (9-20) mg/dL BUN/Creatinine Ratio (12.00-20.00) Ratio Calcium (8.7-10.3) mg/dL Magnesium 3.9 H (1.6-2.3) mg/dL Total Bilirubin 2.3 H (0.2-1.3) mg/dL Unconjugated Bilirubin (0.0-1.1) mg/dL AST 96 H (17-59) U/L ALT 176 H (4-49) U/L Alkaline Phosphatase 152 H (38-126) U/L 09/11/22 09/11/22 Range/Units 07:36 07:36 RBC (4.40-5.60) X 10*6/uL Hgb (12.0-15.0) d/dL Hct (39.6-50.0) % APTT (22.0-30.0) sec Sodium (137-145) mmol/L Potassium 3.2 L (3.5-5.5) mmol/L Chloride (98-107) mmol/L BUN 60.9 H (9-20) mg/dL BUN/Creatinine Ratio 60.90 H (12.00-20.00) Ratio Calcium 8.4 L (8.7-10.3) mg/dL Magnesium (1.6-2.3) mg/dL Total Bilirubin 1.5 H (0.2-1.3) mg/dL Unconjugated Bilirubin 1.3 H (0.0-1.1) mg/dL AST 94 H (17-59) U/L ALT 181 H (4-49) U/L Alkaline Phosphatase 163 H (38-126) U/L Thrombosis Risk Factor Assmnt - Choose All That Apply Any of the Below Risk Factors Present?: Yes Each Factor Represents 1 point: Age 41-60 years, Medical pt on bed rest, Obesity (BMI >25) Other Risk Factors: Yes Each Risk Factor Represents 3 Points: History of DVT/PE Other congenital or acquired thrombophilia - If yes, enter type in comment: Yes Thrombosis Risk Factor Assessment Total Risk Factor Score: 6 Thrombosis Risk Factor Assessment Level: High Risk Assessment and Plan Assessment: High right lower quadrant ostomy output and review of Crohn's disease Dehydration secondary to above Hypovolemic hypernatremia Transaminitis with hyperbilirubinemia Generalized weakness History of CVA history of deep venous thrombosis on Lovenox at home history of Crohn's disease status post colectomy and colostomy bag placement History of right below knee amputation Chronically bedbound right BKA Plan: Continue with gentle hydration Check ESR and CRP check stool studies continue with TPN Continue with IV hydration. Gastrointestinal service consult Labs and medication were reviewed.. Continue same treatment. Continue with symptomatic treatment. Resume home medication. Monitor labs and vitals. DVT and GI prophylaxis. Further recommendations as per clinical course of the patient DVT prophylaxis: Subcutaneous Lovenox GI Prophylaxis: ppi Prognosis is guarded
[2022-09-11 13:16] VITALS: BMI 28.7
--- NOTE | 2022-09-11 13:22 | P.CONS ---
History of Present Illness - Reason for Consult Consult date: 09/11/22 Crohn's, increased ostomy output Requesting physician: Kishore Mae - Chief Complaint Weakness - History of Present Illness 47-year-old male with multiple comorbidities including history of prior stroke, DVTs on anticoagulation, Crohn's disease with ileostomy who presented to the emergency department with complaints of generalized weakness. Patient was noted to be dehydrated, and was admitted for dehydration. Patient states that over the last 1 week's duration he's had increased output from his ostomy, which he states is watery, nonbloody. He states he usually has his back emptied every 12 hours and instead now is having to have it emptied every 6 hours. He does have some lower abdominal pain as well. He gets TPN for nutritional support however states he does take in by mouth intake. He just eats small amounts. He currently is not following with any community aide however he used to follow with Dr. Kiki Alvarez. He is not taking any medication for his Crohn's disease. States he was supposed to start this tomorrow with Dr. Elder but has not followed up with him. He reports his last colonoscopy was a few years ago looks like possibly back in 2017. He underwent ileocolectomy-10/10/2021. Patient does follow with a surgeon Dr. Najera from [facility] for previous colon Abscess with fistula in October 2021. Patient currently denies any nausea or vomiting, fevers or chills, no shortness of breath or chest pain. He is afebrile. Gastroenterology was consulted for history of Crohn's disease with increased ostomy output. He had a CT of the abdomen and pelvis as part of his workup reported essentially stable postoperative appearance of the abdomen with ileostomy and ileostomy catheter noted. Previously noted seroma has resolved or has been drained in the interval. Patient was also noted to have elevated LFTs, he denies any history of liver disease, no new medications no recent antibiotics. Today's labs WBC 5.6 hem oglobin 11.8 platelet count 200,000 sodium 137 potassium 3.2 BUN 16 creatinine 1.0 total bilirubin 1.5 AST 94 ALT 181 alkaline phosphatase 163 ESR 34 CRP 1.6 C. diff negative Admitting Labs WBC 6.8 hemoglobin 14.3 hematocrit 42 platelet count 227,000 INR 1.1 sodium 127 potassium 3.7 BUN 93 creatinine 1.1 total bilirubin 2.3 AST 96 ALT 176 alkaline phosphatase 152 Review of Systems REVIEW OF SYSTEMS: CARDIOPULMONARY: No chest pain or shortness of breath. Gastrointestinal: Lower abdominal pain. Increased output from ostomy. No nausea or vomiting. No hematemesis, coffee-ground emesis. No rectal bleeding, or melena. GENITOURINARY: No dysuria or hematuria. MUSCULOSKELETAL: Reports normal range of motion. SKIN: No rashes. No jaundice. ENDOCRINE: No chills, fevers. No excessive weight gain or loss. No polydipsia or polyuria. PSYCHIATRIC: Unremarkable. NEUROLOGY: No change in mental status. Denies dizziness, headache. ENT: Vision unremarkable. CONSTITUTIONAL: No recent weight loss. No fever, chills, night sweats. Past Medical History Past Medical History: CVA/TIA, Deep Vein Thrombosis (DVT) Additional Past Medical History / Comment(s): left sided weakness, right hand contracture, Hx CVA in 2012, during surgery to repair blood clot, states still has DVT in right arm. Crohns. Ostomy Bag placed in 09/2021. History of Any Multi-Drug Resistant Organisms: None Reported Past Surgical History: Cholecystectomy, Orthopedic Surgery Additional Past Surgical History / Comment(s): Arm surgery, right leg below knee amputation 2017, , ostomy (2021) Past Anesthesia/Blood Transfusion Reactions: No Reported Reaction Past Psychological History: No Psychological Hx Reported Additional Psychological History / Comment(s): PT STATED FEW DAYS AGO STARTED HAVING PAIN IN UPPER THIGH AND SWELLING THAT HAS PROGERESSED Smoking Status: Former smoker Past Alcohol Use History: None Reported Additional Past Alcohol Use History / Comment(s): QUIT SMOKING IN 2017, STARTED SMOKING AT AGE 16, 1PPD. Past Drug Use History: None Reported - Past Family History Father Additional Family Medical History / Comment(s): DAD IN HIS TWENTIES - CAUSE UNKNOWN. Mother Family Medical History: Diabetes Mellitus Brother(s) Family Medical History: Cancer Additional Family Medical History / Comment(s): Kidney cancer as a baby. Medications and Allergies Home Medications Medication Instructions Recorded Confirmed Type Enoxaparin [Lovenox] 80 mg SQ Q12H 07/07/22 09/10/22 History Metoprolol Tartrate [Lopressor] 12.5 mg PO BID 07/07/22 09/10/22 History Pantoprazole [Protonix] 40 mg PO DAILY 07/07/22 09/10/22 History lisinopriL [Zestril] 2.5 mg PO DAILY 07/07/22 09/10/22 History methocarbamoL [Methocarbamol] 750 mg PO TID 07/07/22 09/10/22 History Albuterol Sulfate [Albuterol 1 - 2 puff PO RT-Q4H PRN 09/10/22 09/10/22 History Sulfate Hfa] Allergies Allergy/AdvReac Type Severity Reaction Status Date / Time No Known Allergies Allergy Verified 09/10/22 18:42 Physical Exam Vitals: Vital Signs Temp Pulse Resp BP BP Pulse Ox FiO2 09/11/22 09:30 94 L 21 09/11/22 08:00 98.1 F 16 103/60 98 09/11/22 06:15 98.2 F 63 18 99/48 95 09/11/22 04:43 79 16 102/48 96 09/10/22 23:00 81 18 103/55 96 09/10/22 21:00 83 16 106/53 99 09/10/22 19:10 85 16 99/52 99 09/10/22 17:26 97.6 F 91 18 97/56 96 Intake and Output 09/10/22 09/11/22 09/11/22 22:59 06:59 14:59 Output Total 1600 Balance -1600 Output: Urine 600 Stool 1000 Other: Weight 90.718 kg 90.718 kg General appearance: The patient is alert, oriented, appears in no acute distress. HET: Head is normocephalic and atraumatic. Conjunctiva pink. Sclera anicteric. Neck: Supple without lymphadenopathy. Trachea midline. Heart: S1 S2. Regular rate and rhythm. Lungs: Normal expansion. Abdomen: Soft, obese, ostomy with brown liquid stool, multiple scars on abdomen, nondistended. Lower abdominal tenderness. No guarding or rigidity. Skin: No rashes. No jaundice. Extremities: Normal skin color and turgor. No pedal edema. Neurological: No focal deficits. Alert and oriented x3. Results CBC & Chem 7: 09/11/22 07:36 09/11/22 07:36 Labs: Abnormal Lab Results - Last 24 Hours (Table) 06/26/23 06/26/23 Range/Units 17:39 17:39 APTT 30.4 H (22.0-30.0) sec Sodium 127 L (137-145) mmol/L Chloride 91 L (98-107) mmol/L BUN 93 H (9-20) mg/dL Magnesium 3.9 H (1.6-2.3) mg/dL Total Bilirubin 2.3 H (0.2-1.3) mg/dL AST 96 H (17-59) U/L ALT 176 H (4-49) U/L Alkaline Phosphatase 152 H (38-126) U/L US - abdomen: report reviewed (Extremely limited exam/nondiagnostic due to large colostomy bag, overlying bowel gas, and patient unable to tolerate probe pressure) Assessment and Plan (1) Crohn's disease Narrative/Plan: 47-year-old male with a history of Crohn's disease diagnosed in 2009 who has had history of abscess with ileocolectomy in 09/2021 with the further abscess development and fistula who underwent further surgery and October 2021 with transfer down to [facility]. Patient now follows with the surgeon near however not following with any gastroenterology following his Crohn's disease. Currently not on any medication he was supposed to start Scolaro when he last saw Dr. Swanson about a year ago. Admitted with weakness, dehydration, increased ostomy output. Patient has elevated CRP and sed rate. Stool Negative for C. difficile. Unclear etiology may be related to Crohn's disease as patient has not had any follow-up in over one year and currently not on any medications. Current Visit: No Status: Acute Code(s): K50.90 - CROHN'S DISEASE, UNSPECIFIED, WITHOUT COMPLICATIONS SNOMED Code(s): 94280026 (2) Diarrhea Current Visit: Yes Status: Acute Code(s): R19.7 - DIARRHEA, UNSPECIFIED SNOMED Code(s): 16156356 (3) Dehydration Current Visit: Yes Status: Acute Code(s): E86.0 - DEHYDRATION SNOMED Code(s): 20527718 (4) Hypokalemia Current Visit: Yes Status: Acute Code(s): E87.6 - HYPOKALEMIA SNOMED Code(s): 95438692 (5) Elevated LFTs Narrative/Plan: Presented with elevated LFTs with unclear etiology. No previous history of liver disease. Patient denies any new medications or recent antibiotic use. Patient is morbidly obese and certainly could be related to fatty liver disease. Will order liver ultrasound and liver serologies to rule out other etiologies. Also medication list reviewed with no obvious hepatotoxic medications. Current Visit: Yes Status: Acute Code(s): R79.89 - OTHER SPECIFIED ABNORMAL FINDINGS OF BLOOD CHEMISTRY SNOMED Code(s): 219320213 Plan: 1. Continue symptomatic and supportive care 2. C. diff and stool cultures ordered 3. Diet as tolerated 4. Liver ultrasound ordered 5. Liver serologies ordered 6. Avoid hepatotoxic medications 7. Lomotil 2 tabs 4 times a day 8. Will plan for outpatient follow-up and [facility] Major 9. Continue rest of medical management per primary medical team Thank you for this consultation, we'll continue to follow. Dr. Adalgisa Peterson I agree with the dictator's note, documented as a scribe by Tahira Gutierrez.
[2022-09-11] MEDS: SODIUM CHLORIDE 0.9% 1,000 ML IV SCH (13:54)
[2022-09-11] MEDS ORDERED: MVI, ADULT NO.4 WITH VIT K 10 ML, TRACE (CONC-1ML/DOSE) 1 ML, SODIUM ACETATE 30 MEQ, PO... IV SCH ×6 (14:30)
[2022-09-11] MEDS: DIPHENOX-ATROP 2.5-0.025 MG 1 EACH TAB PO SCH ×2 (15:43→20:47)
[2022-09-11 15:55] LABS: Alpha Fetoprotein, Tumor Mkr <3.00 ng/mL (0.00-7.90)
[2022-09-11] MEDS ORDERED: MORPHINE SULFATE 2 MG/ML SYRINGE IVP STA (16:33)
[2022-09-11 17:17] LABS: Hepatitis A Antibody IgM Nonreactive; Hepatitis B Core IgM Nonreactive; Hepatitis B Surface Antigen Nonreactive; Hepatitis C IgG Antibody Nonreactive
[2022-09-11] MEDS: MORPHINE SULFATE 2 MG/ML SYRINGE IVP PRN (20:07)
[2022-09-12] MEDS: MORPHINE SULFATE 2 MG/ML SYRINGE IVP PRN ×6 (00:21→22:04)
[2022-09-12] MEDS ORDERED: [UNRECOGNIZED DRUG - OTHER] IV SCH (00:30)
[2022-09-12] MEDS ORDERED: SODIUM ACETATE IV SCH ×2 (00:30→19:00)
[2022-09-12] MEDS ORDERED: POTASSIUM CHLORIDE IV SCH ×2 (00:30→19:00)
[2022-09-12] MEDS ORDERED: CALCIUM GLUCONATE IV SCH (00:30)
[2022-09-12] MEDS: SODIUM CHLORIDE 0.9% 1,000 ML IV SCH ×2 (01:34→22:09)
[2022-09-12 06:08] LABS: Ionized Calcium 5.5 mg/dL (4.5-5.3)
[2022-09-12 06:13] LABS: African American GFR (CKD) >90 (>60 ml/min/1.73 sqM); Albumin 2.8 g/dL (3.5-5.0); Anion Gap 6 mmol/L; Blood Urea Nitrogen 55 mg/dL (9-20); Calcium 8.9 mg/dL (8.4-10.2); Carbon Dioxide 26 mmol/L (22-30); Chloride 98 mmol/L (98-107); Globulin 3.6 g/dL; Glucose 120 mg/dL (74-99); Magnesium 2.6 mg/dL (1.6-2.3); Non-African American GFR(CKD) >90 (>60 ml/min/1.73 sqM); Phosphorus 2.4 mg/dL (2.5-4.5); Potassium 3.2 mmol/L (3.5-5.1); Sodium 130 mmol/L (137-145); Total Protein 6.4 g/dL (6.3-8.2)
[2022-09-12 06:14] LABS: ALT 179 U/L (4-49); AST 159 U/L (17-59); Albumin/Globulin Ratio 0.8; Alkaline Phosphatase 116 U/L (38-126); Total Bilirubin 2.1 mg/dL (0.2-1.3)
[2022-09-12] MEDS: METOPROLOL TARTRATE 12.5 MG TAB PO SCH ×3 (08:03→23:34)
[2022-09-12] MEDS: FAT EMULSION 20% 250 ML in EMPTY BAG 1 BAG IV SCH (08:45)
[2022-09-12] MEDS ORDERED: [UNRECOGNIZED DRUG - REMARK] IV SCH ×6 (09:00)
[2022-09-12] MEDS: DIPHENOX-ATROP 2.5-0.025 MG 1 EACH TAB PO SCH ×4 (09:16→23:15)
[2022-09-12] MEDS: PANTOPRAZOLE 40 MG TABLET PO SCH (09:16)
[2022-09-12] MEDS: ENOXAPARIN 80 MG/0.8 ML SYRINGE SQ SCH ×2 (09:16→23:15)
--- NOTE | 2022-09-12 14:59 | P.PN ---
Subjective This Is a pleasant 47 years old male with past medical history of CVA/TIA, Deep Vein Thrombosis , Progressing left upper thigh pain and swelling and left leg weakness., Crohns. right leg below knee amputation Patient brought into ER via EMS with complaints of worsening weakness. Per EMS patients family, he is not acting normal and is less responsive than what he normally is. When I saw the patient he was awake and alert and oriented, little lethargic and looks tired. Patient says that the [facility] and he came in to the hospital is that he has been feeling weak for the last 2 days. Patient is bedbound mostly wheelchair, he has history of right BKA, also he has history of right lower quadrant ileostomy and he has central line in the left upper chest for TPN since March. Patient says that he has chronic abdominal pain in the middle of the abdomen and around his ileostomy bag about 5/10 felt like burning, states that it was 7/10 before which is a slightly worsened than his baseline. He is not in distress due to pain. He says that usually he has 2 bowel movements through his ileostomy back normally however recently he is been having 3-4 bowel movements and more loose however when I examined him he has watery bowel movements in his ileostomy bag. Also patient is on Lovenox 80 mg twice daily at home for he has history of DVT. He denies any urinary complaints. He denies chest pain dyspnea or coughing. No headache dizziness weakness or numbness. No smoking or alcohol. He follow-up with a surgeon Dr. Zee at [facility] and he supposed to refer him to GI specialist at [facility]. His PCP is Dr. Ivey and [place] Patient is mildly hypotensive, systolic blood pressure usually 100-120, currently in the 90s to 100 other Vital signs stable CBC, INR is unremarkable Sodium is 127. Creatinine 1.18. Magnesium 3.9. Total bilirubin is 2.3, AST 96 which is elevated and ALT 176. Influenza, casillas and RSV viruses are undetected CT of the brain: No acute process CT of the abdomen and pelvis showing postoperative changes with no acute changes. He received 5 L of normal saline and admitted with GI consult for increased right lower quadrant ostomy output, and review of his history of Crohn's disease. C. 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 Has watery diarrhea per his ileostomy bag , however patient feels hungry and is able to drink. He needs assistance from staff to help.. Other than that he is getting TPN from home discontinued. The patient consult on the case with adjust electrolytes. Vitals and labs reviewed and developed shortness replace per protocol. Liver enzymes slightly worsened with keep monitoring. Mild hypernatremia and stable. The pressure sore on the low side, therefore we are going to hold his metopr olol. He is on Lovenox from home for his history of DVT Crohn disease exacerbation is suspected however is dressed and CRP already mildly elevated, patient currently THE TREATMENT PROTOCOLS, GI SURFACE OF THE CASE Objective - Vital Signs Vital signs: Vital Signs Temp 98.2 F 09/12/22 13:48 Pulse 90 09/12/22 13:48 Resp 16 09/12/22 13:48 BP 115/70 09/12/22 13:48 Pulse Ox 98 09/12/22 13:48 FiO2 21 09/11/22 09:30 Intake & Output 09/11/22 09/12/22 09/12/22 18:59 06:59 18:59 Intake Total 2300 Output Total 6600 3250 750 Balance -6600 -950 -750 Weight 90.718 kg 90.718 kg Intake: Intake, IV Titration 1960 Amount Sodium Acetate 30 meq 1060 Potassium Chloride 20 meq Calcium Gluconate 1 gm In Amino Acids 5 %/ Dextrose 20 % 1,000 ml @ 106 mls/hr IV DAILY@1900 [facility] Rx#:[id number] Sodium Chloride 0.9% 1, 900 000 ml @ 75 mls/hr IV . [id number] [facility] Rx#:[id number] Oral 340 Output: Urine 1600 350 Stool 5000 2900 750 - Exam -GENERAL: The patient is alert and oriented x3, not in any acute distress. Well developed, well nourished. Patient is lethargic HEENT: Pupils are round and equally reacting to light. EOMI. No scleral icterus. No conjunctival pallor. Normocephalic, atraumatic. No pharyngeal erythema. No thyromegaly. CARDIOVASCULAR: S1 and S2 present. No murmurs, rubs, or gallops. -PULMONARY: Chest is clear to auscultation, no wheezing , no crackles. Chest Central line -ABDOMEN: Soft, nontender, normoactive bowel sounds. No palpable organomegaly. Right lower quadrant large ileostomy bag, with surrounding abdominal wall scarring. With surrounding tenderness, no rebound tenderness or guarding MUSCULOSKELETAL: No joint swelling or deformity. -EXTREMITIES: No cyanosis, clubbing, or pedal edema. Right BKA NEUROLOGICAL: Gross neurological examination did not reveal any focal deficits. SKIN: No rashes. no petechiae. - Labs CBC & Chem 7: 09/11/22 07:36 09/12/22 05:47 Labs: Abnormal Lab Results - Last 24 Hours (Table) 09/11/22 09/12/22 Range/Units 10:12 05:47 Sodium 130 L (137-145) mmol/L Potassium 3.2 L (3.5-5.1) mmol/L BUN 55 H (9-20) mg/dL Glucose 120 H (74-99) mg/dL Ionized Calcium Nita 5.5 H (4.5-5.3) mg/dL Phosphorus 2.4 L (2.5-4.5) mg/dL Magnesium 2.6 H (1.6-2.3) mg/dL Total Bilirubin 2.1 H (0.2-1.3) mg/dL AST 159 H (17-59) U/L ALT 179 H (4-49) U/L Albumin 2.8 L (3.5-5.0) g/dL Ceruloplasmin 17.9 L (20.0-60.0) mg/dL Microbiology - Last 24 Hours (Table) 09/10/22 17:39 Blood Culture - Preliminary Blood 09/10/22 18:30 Blood Culture - Preliminary Blood Assessment and Plan Assessment: High right lower quadrant ostomy output and review of Crohn's disease Dehydration secondary to above Hypovolemic hypernatremia Transaminitis with hyperbilirubinemia Generalized weakness History of CVA history of deep venous thrombosis on Lovenox at home history of Crohn's disease status post colectomy and colostomy bag placement History of right below knee amputation Chronically bedbound right BKA Plan: Continue with gentle hydration check stool studies continue with TPN Continue with IV hydration. Gastrointestinal service consult Labs and medication were reviewed.. Continue same treatment. Continue with symptomatic treatment. Resume home medication. Monitor labs and vitals. DVT and GI prophylaxis. Further recommendations as per clinical course of the patient DVT prophylaxis: Subcutaneous Lovenox GI Prophylaxis: ppi Prognosis is guarded
--- NOTE | 2022-09-12 15:25 | P.PN ---
Subjective Progress Note Date: 09/12/22 Principal diagnosis: Increased output from ostomy 47-year-old male with multiple comorbidities including history of prior stroke, DVTs on anticoagulation, Crohn's disease with ileostomy who presented to the emergency department with complaints of generalized weakness. Patient was noted to be dehydrated, and was admitted for dehydration. Patient states that over the last 1 week's duration he's had increased output from his ostomy, which he states is watery, nonbloody. He states he usually has his back emptied every 12 hours and instead now is having to have it emptied every 6 hours. He does have some lower abdominal pain as well. He gets TPN for nutritional support however states he does take in by mouth intake. He just eats small amounts. He currently is not following with any event security officer however he used to follow with Dr. Kiki Alvarez. He is not taking any medication for his Crohn's disease. States he was supposed to start this tomorrow with Dr. Elder but has not followed up with him. He reports his last colonoscopy was a few years ago looks like possibly back in 2016. He underwent ileocolectomy-10/10/2021. Patient does follow with a surgeon Dr. Najera from [facility] for previous colon Abscess with fistula in October 2021. Patient currently denies any nausea or vomiting, fevers or chills, no shortness of breath or chest pain. He is afebrile. Gastroenterology was consulted for history of Crohn's disease with increased ostomy output. He had a CT of the abdomen and pelvis as part of his workup reported essentially stable postoperative appearance of the abdomen with ileostomy and ileostomy catheter noted. Previously noted seroma has resolved or has been drained in the interval. Patient was also noted to have elevated LFTs, he denies any history of liver disease, no new medications no recent antibiotics. Today's labs WBC 5.6 hemoglobin 11.8 platelet count 200,000 sodium 137 potassium 3.2 BUN 16 creatinine 1.0 total bilirubin 1.5 AST 94 ALT 181 alkaline phosphatase 163 ESR 34 CRP 1.6 C. diff negative Admitting Labs WBC 6.8 hemoglobin 14.3 hematocrit 42 platelet count 227,000 INR 1.1 sodium 127 potassium 3.7 BUN 93 creatinine 1.1 total bilirubin 2.3 AST 96 ALT 176 alkaline phosphatase 152 09/12/2022 Patient seen and examined today as follow-up. He had 3500 mL of stool output from ostomy however it does seem to be with a thicker consistency. He states he has lower abdominal pain but that is chronic. No nausea or vomiting. States he is eating small amounts of food. Has TPN running. No other acute changes through the night. Objective - Vital Signs Vital signs: Vital Signs Temp 98.4 F 09/12/22 07:38 Pulse 77 09/12/22 07:38 Resp 18 09/12/22 07:38 BP 87/48 09/12/22 07:38 Pulse Ox 97 09/12/22 07:38 FiO2 21 09/11/22 09:30 Intake & Output 09/11/22 09/12/22 09/12/22 18:59 06:59 18:59 Intake Total 2300 Output Total 6600 3250 300 Balance -6600 -950 -300 Weight 90.718 kg Intake: Intake, IV Titration 1960 Amount Sodium Acetate 30 meq 1060 Potassium Chloride 20 meq Calcium Gluconate 1 gm In Amino Acids 5 %/ Dextrose 20 % 1,000 ml @ 106 mls/hr IV DAILY@1900 [facility] Rx#:[id number] Sodium Chloride 0.9% 1, 900 000 ml @ 75 mls/hr IV . [id number] [facility] Rx#:[id number] Oral 340 Output: Urine 1600 350 Stool 5000 2900 300 - Exam General appearance: The patient is alert, oriented, appears in no acute distress. HET: Head is normocephalic and atraumatic. Conjunctiva pink. Sclera anicteric. Neck: Supple without lymphadenopathy. Trachea midline. Heart: S1 S2. Regular rate and rhythm. Lungs: Normal expansion. Abdomen: Soft, obese, ostomy with brown liquid stool, multiple scars on abdomen, nondistended. Lower abdominal tenderness. No guarding or rigidity. Skin: No rashes. No jaundice. Extremities: Normal skin color and turgor. No pedal edema. Neurological: No focal deficits. Alert and oriented x3. - Labs CBC & Chem 7: 09/11/22 07:36 09/12/22 05:47 Labs: Abnormal Lab Results - Last 24 Hours (Table) 09/11/22 09/11/22 09/11/22 Range/Units 07:36 07:36 07:36 RBC 3.84 L (4.40-5.60) X 10*6/uL Hgb 11.8 L (12.0-15.0) d/dL Hct 35.3 L (39.6-50.0) % ESR 34 H (0-15) mm/Hr Sodium (137-145) mmol/L Potassium 3.2 L (3.5-5.5) mmol/L BUN 60.9 H (9.0-27.0) mg/dL BUN/Creatinine Ratio 60.90 H (12.00-20.00) Ratio Glucose (74-99) mg/dL Calcium 8.4 L (8.7-10.3) mg/dL Ionized Calcium Nita (4.5-5.3) mg/dL Phosphorus (2.5-4.5) mg/dL Magnesium (1.6-2.3) mg/dL Total Bilirubin 1.5 H (0.2-1.3) mg/dL Unconjugated Bilirubin 1.3 H (0.0-1.1) mg/dL AST 94 H (17-59) U/L ALT 181 H (4-49) U/L Alkaline Phosphatase 163 H (38-126) U/L C-Reactive Protein (<1.0) mg/dL Albumin (3.5-5.0) g/dL Ceruloplasmin (20.0-60.0) mg/dL 09/11/22 09/11/22 09/12/22 Range/Units 10:12 10:12 05:47 RBC (4.40-5.60) X 10*6/uL Hgb (12.0-15.0) d/dL Hct (39.6-50.0) % ESR (0-15) mm/Hr Sodium 130 L (137-145) mmol/L Potassium 3.2 L (3.5-5.5) mmol/L BUN 55 H (9.0-27.0) mg/dL BUN/Creatinine Ratio (12.00-20.00) Ratio Glucose 120 H (74-99) mg/dL Calcium (8.7-10.3) mg/dL Ionized Calcium Nita 5.5 H (4.5-5.3) mg/dL Phosphorus 2.4 L (2.5-4.5) mg/dL Magnesium 2.6 H (1.6-2.3) mg/dL Total Bilirubin 2.1 H (0.2-1.3) mg/dL Unconjugated Bilirubin (0.0-1.1) mg/dL AST 159 H (17-59) U/L ALT 179 H (4-49) U/L Alkaline Phosphatase (38-126) U/L C-Reactive Protein 1.6 H (<1.0) mg/dL Albumin 2.8 L (3.5-5.0) g/dL Ceruloplasmin 17.9 L (20.0-60.0) mg/dL Microbiology - Last 24 Hours (Table) 09/10/22 17:39 Blood Culture - Preliminary Blood 09/10/22 18:30 Blood Culture - Preliminary Blood Assessment and Plan (1) Crohn's disease Narrative/Plan: 47-year-old male with a history of Crohn's disease diagnosed in 2009 who has had history of abscess with ileocolectomy in 09/2021 with the further abscess development and fistula who underwent further surgery and October 2021 with transfer down to [facility]. Patient now follows with the surgeon near however not following with any gastroenterology following his Crohn's disease. Currently not on any medication he was supposed to start Scolaro when he last saw Dr. Swanson about a year ago. Admitted with weakness, dehydration, increased ostomy output. Patient has elevated CRP and sed rate. Stool Negative for C. difficile. Unclear etiology may be related to Crohn's disease as patient has not had any follow-up in over one year and currently not on any medications. Current Visit: No Status: Acute Code(s): K50.90 - CROHN'S DISEASE, UNSPECIFIED, WITHOUT COMPLICATIONS SNOMED Code(s): 11929171 (2) Diarrhea Narrative/Plan: Lomotil 2 mg 2 tablets 4 times a day added, stool output decreasing inconsistency is becoming thicker Current Visit: Yes Status: Acute Code(s): R19.7 - DIARRHEA, UNSPECIFIED SNOMED Code(s): 37235394 (3) Dehydration Current Visit: Yes Status: Acute Code(s): E86.0 - DEHYDRATION SNOMED Code(s): 15632561 (4) Hypokalemia Current Visit: Yes Status: Acute Code(s): E87.6 - HYPOKALEMIA SNOMED Code(s): 56755815 (5) Elevated LFTs Narrative/Plan: Presented with elevated LFTs with unclear etiology. No previous history of liver disease. Patient denies any new medications or recent antibiotic use. Patient is morbidly obese and certainly could be related to fatty liver disease. Will order liver ultrasound and liver serologies to rule out other etiologies. Also medication list reviewed with no obvious hepatotoxic medications. Liver serologies negative to date. Current Visit: Yes Status: Acute Code(s): R79.89 - OTHER SPECIFIED ABNORMAL FINDINGS OF BLOOD CHEMISTRY SNOMED Code(s): 096249360 Plan: 1. Continue symptomatic and supportive care 2. C. diff and stool cultures ordered 3. Diet as tolerated 4. Liver ultrasound ordered 5. Liver serologies ordered 6. Avoid hepatotoxic medications 7. Lomotil 2 tabs 4 times a day 8. Replace potassium per protocol 9. Will plan for outpatient follow-up and referral down to [facility] Crohn's specialist Dr. Major 10. Continue rest of medical management per primary medical team Thank you for this consultation, we'll continue to follow. Dr. Adalgisa Peterson I agree with the dictator's note, documented as a scribe by Tahira Gutierrez.
[2022-09-12] MEDS: ONDANSETRON 4 MG/2 ML VIAL IVP PRN (18:41)
[2022-09-12] MEDS ORDERED: SODIUM PHOSPHATE IV SCH (19:00)
[2022-09-12] MEDS ORDERED: [UNRECOGNIZED DRUG - OTHER] IV SCH (19:00)
[2022-09-12] MEDS: KETOROLAC 15 MG/ML 1 ML VIAL IVP PRN (21:18)
[2022-09-13] MEDS: MORPHINE SULFATE 2 MG/ML SYRINGE IVP PRN ×5 (02:37→21:13)
[2022-09-13] MEDS: SODIUM CHLORIDE 0.9% 1,000 ML IV SCH ×2 (04:21→17:08)
[2022-09-13 07:02] LABS: ALT 161 U/L (4-49); AST 109 U/L (17-59); African American GFR (CKD) >90 (>60 ml/min/1.73 sqM); Albumin 2.6 g/dL (3.5-5.0); Albumin/Globulin Ratio 0.7; Alkaline Phosphatase 130 U/L (38-126); Anion Gap 5 mmol/L; Bilirubin,Unconjugated 1.2 mg/dL (0.0-1.1); Blood Urea Nitrogen 53 mg/dL (9-20); Carbon Dioxide 27 mmol/L (22-30); Chloride 100 mmol/L (98-107); Globulin 3.6 g/dL; Glucose 90 mg/dL (74-99); Magnesium 2.2 mg/dL (1.6-2.3); Non-African American GFR(CKD) >90 (>60 ml/min/1.73 sqM); Phosphorus 2.7 mg/dL (2.5-4.5); Potassium 3.5 mmol/L (3.5-5.1); Sodium 132 mmol/L (137-145); Total Bilirubin 1.9 mg/dL (0.2-1.3); Total Protein 6.2 g/dL (6.3-8.2)
[2022-09-13] MEDS: METOPROLOL TARTRATE 12.5 MG TAB PO SCH ×2 (07:56→21:06)
[2022-09-13] MEDS: DIPHENOX-ATROP 2.5-0.025 MG 1 EACH TAB PO SCH ×4 (08:03→21:12)
[2022-09-13] MEDS: ENOXAPARIN 80 MG/0.8 ML SYRINGE SQ SCH ×2 (08:04→21:26)
[2022-09-13] MEDS: PANTOPRAZOLE 40 MG TABLET PO SCH (08:04)
[2022-09-13] MEDS ORDERED: [UNRECOGNIZED DRUG - REMARK] IV SCH ×3 (09:00)
[2022-09-13] MEDS ORDERED: MVI, ADULT NO.4 WITH VIT K 10 ML, TRACE (CONC-1ML/DOSE) 1 ML, SODIUM ACETATE 40 MEQ, PO... IV SCH ×6 (09:00)
[2022-09-13 11:02] LABS: Basophils # (A) 0.02 X 10*3/uL (0.00-0.10); Basophils % (A) 0.5 %; Eosinophils # (A) 0.11 X 10*3/uL (0.04-0.35); Eosinophils % (A) 2.6 %; HCT 34.6 % (39.6-50.0); Immature Grans, Automated 0 %; Lymphocytes # (A) 1.97 X 10*3/uL (0.90-5.00); Lymphocytes % (A) 46.7 %; MCH 30.3 pg (27.0-32.0); MCHC 31.8 d/dL (32.0-37.0); MCV 95.3 FL (80.0-97.0); Mean Platelet Volume 11.1 FL (9.5-12.2); Monocytes # (A) 0.36 X 10*3/uL (0.20-1.00); Monocytes % (A) 8.5 %; NRBC Per 100 WBC 0 X 10*3/uL (0.00-0.01); Neutrophils # (A) 1.76 X 10*3/uL (1.80-7.70); Neutrophils % (A) 41.7 %; Platelet Count 185 X 10*3/uL (140-440); RBC 3.63 X 10*6/uL (4.40-5.60); RDW 13.7 % (11.5-14.5); WBC 4.22 X 10*3/uL (4.50-10.00)
[2022-09-13] MEDS ORDERED: SODIUM CHLORIDE 0.9% 500 ML 500 ML IV ONE ×2 (11:54→19:56)
--- NOTE | 2022-09-13 12:09 | P.PN ---
Subjective This Is a pleasant 47 years old male with past medical history of CVA/TIA, Deep Vein Thrombosis , Progressing left upper thigh pain and swelling and left leg weakness., Crohns. right leg below knee amputation Patient brought into ER via EMS with complaints of worsening weakness. Per EMS patients family, he is not acting normal and is less responsive than what he normally is. When I saw the patient he was awake and alert and oriented, little lethargic and looks tired. Patient says that the [facility] and he came in to the hospital is that he has been feeling weak for the last 2 days. Patient is bedbound mostly wheelchair, he has history of right BKA, also he has history of right lower quadrant ileostomy and he has central line in the left upper chest for TPN since March. Patient says that he has chronic abdominal pain in the middle of the abdomen and around his ileostomy bag about 5/10 felt like burning, states that it was 7/10 before which is a slightly worsened than his baseline. He is not in distress due to pain. He says that usually he has 2 bowel movements through his ileostomy back normally however recently he is been having 3-4 bowel movements and more loose however when I examined him he has watery bowel movements in his ileostomy bag. Also patient is on Lovenox 80 mg twice daily at home for he has history of DVT. He denies any urinary complaints. He denies chest pain dyspnea or coughing. No headache dizziness weakness or numbness. No smoking or alcohol. He follow-up with a surgeon Dr. Zee at [facility] and he supposed to refer him to GI specialist at [facility]. His PCP is Dr. Ivey and he lives in [facility] on Patient is mildly hypotensive, systolic blood pressure usually 100-120, currently in the 90s to 100 other Vital signs stable CBC, INR is unremarkable Sodium is 127. Creatinine 1.18. Magnesium 3.9. Total bilirubin is 2.3, AST 96 which is elevated and ALT 176. Influenza, casillas and RSV viruses are undetected CT of the brain: No acute process CT of the abdomen and pelvis showing postoperative changes with no acute changes. He received 5 L of normal saline and admitted with GI consult for increased right lower quadrant ostomy output, and review of his history of Crohn's disease. 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 Has watery diarrhea per his ileostomy bag , however patient feels hungry and is able to drink. He needs assistance from staff to help.. Other than that he is getting TPN from home discontinued. The patient consult on the case with adjust electrolytes. Vitals and labs reviewed and developed shortness replace per protocol. Liver enzymes slightly worsened with keep monitoring. Mild hypernatremia and stable. The pressure sore on the low side, therefore we are going to hold his metopr olol. He is on Lovenox from home for his history of DVT Crohn disease exacerbation is suspected however is dressed and CRP already mildly elevated, patient currently THE TREATMENT PROTOCOLS, GI SURFACE OF THE CASE 09/13/2022 Patient still have significant for coronary diarrhea through his ileostomy bag. More than 3 L of output. Blood pressure is on the low side but patient is bedbound and he is as symptomatic. Patient states that his abdominal pain is chronic with no recent changes, he has good appetite and tolerates diet somehow and he vomited once earlier. He is still getting TPN. No other new complaints. Going to give a bolus of normal saline 500 mL and decrease his normal saline fusion up to 1 25 mL/h Stool studies and C. diff is negative. Stool culture and WBC still pending. Liver ultrasound was of poor quality. Patient informed that he needs to follow up with [facility] Crohn's disease specialist Dr. Major upon discharge and he agrees Objective - Vital Signs Vital signs: Vital Signs Temp 97.9 F 09/13/22 07:13 Pulse 75 09/13/22 07:13 Resp 18 09/13/22 07:13 BP 84/48 09/13/22 07:13 Pulse Ox 99 09/13/22 09:10 FiO2 21 09/11/22 09:30 Intake & Output 09/12/22 09/13/22 09/13/22 18:59 06:59 18:59 Intake Total 1140 Output Total 2450 300 Balance -2450 840 Weight 90.718 kg Intake: Intake, IV Titration 900 Amount Sodium Chloride 0.9% 1, 900 000 ml @ 75 mls/hr IV . [id number] ANNIE Rx#:[id number] Oral 240 Output: Urine 600 Stool 1850 300 Other: Voiding Method External Catheter # Voids 0 0 # Bowel Movements 0 - Exam -GENERAL: The patient is alert and oriented x3, not in any acute distress. Well developed, well nourished. Patient is lethargic HEENT: Pupils are round and equally reacting to light. EOMI. No scleral icterus. No conjunctival pallor. Normocephalic, atraumatic. No pharyngeal erythema. No thyromegaly. CARDIOVASCULAR: S1 and S2 present. No murmurs, rubs, or gallops. -PULMONARY: Chest is clear to auscultation, no wheezing , no crackles. Chest Central line -ABDOMEN: Soft, nontender, normoactive bowel sounds. No palpable organomegaly. Right lower quadrant large ileostomy bag, with surrounding abdominal wall scarring. With surrounding tenderness, no rebound tenderness or guarding MUSCULOSKELETAL: No joint swelling or deformity. -EXTREMITIES: No cyanosis, clubbing, or pedal edema. Right BKA NEUROLOGICAL: Gross neurological examination did not reveal any focal deficits. SKIN: No rashes. no petechiae. - Labs CBC & Chem 7: 09/13/22 06:40 09/13/22 06:40 Labs: Abnormal Lab Results - Last 24 Hours (Table) 09/13/22 09/13/22 Range/Units 06:40 06:40 WBC 4.22 L (4.50-10.00) X 10*3/uL RBC 3.63 L (4.40-5.60) X 10*6/uL Hgb 11.0 L (12.0-15.0) d/dL Hct 34.6 L (39.6-50.0) % MCHC 31.8 L (32.0-37.0) d/dL Neutrophils # 1.76 L (1.80-7.70) X 10*3/uL Sodium 132 L (137-145) mmol/L BUN 53 H (9-20) mg/dL Total Bilirubin 1.9 H (0.2-1.3) mg/dL Unconjugated Bilirubin 1.2 H (0.0-1.1) mg/dL AST 109 H (17-59) U/L ALT 161 H (4-49) U/L Alkaline Phosphatase 130 H (38-126) U/L Total Protein 6.2 L (6.3-8.2) g/dL Albumin 2.6 L (3.5-5.0) g/dL Microbiology - Last 24 Hours (Table) 09/10/22 17:39 Blood Culture - Preliminary Blood 09/10/22 18:30 Blood Culture - Preliminary Blood Assessment and Plan Assessment: High right lower quadrant ostomy output and review of Crohn's disease Dehydration secondary to above Hypovolemic hypernatremia Transaminitis with hyperbilirubinemia Generalized weakness History of CVA history of deep venous thrombosis on Lovenox at home history of Crohn's disease status post colectomy and colostomy bag placement History of right below knee amputation Chronically bedbound right BKA Plan: Increase intravenous hydration check stool studies continue with TPN Follow-up stool studies Gastrointestinal service consult Labs and medication were reviewed.. Continue same treatment. Continue with sy mptomatic treatment. Resume home medication. Monitor labs and vitals. DVT and GI prophylaxis. Further recommendations as per clinical course of the patient DVT prophylaxis: Subcutaneous Lovenox GI Prophylaxis: ppi Prognosis is guarded
--- NOTE | 2022-09-13 14:23 | P.PN ---
Subjective Progress Note Date: 09/13/22 Principal diagnosis: Increased output from ostomy 47-year-old male with multiple comorbidities including history of prior stroke, DVTs on anticoagulation, Crohn's disease with ileostomy who presented to the emergency department with complaints of generalized weakness. Patient was noted to be dehydrated, and was admitted for dehydration. Patient states that over the last 1 week's duration he's had increased output from his ostomy, which he states is watery, nonbloody. He states he usually has his back emptied every 12 hours and instead now is having to have it emptied every 6 hours. He does have some lower abdominal pain as well. He gets TPN for nutritional support however states he does take in by mouth intake. He just eats small amounts. 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 Kiki Alvarez. He is not taking any medication for his Crohn's disease. States he was supposed to start this tomorrow with Dr. Elder but has not followed up with him. He reports his last colonoscopy was a few years ago looks like possibly back in 2016. He underwent ileocolectomy-10/10/2021. Patient does follow with a surgeon Dr. Najera from [facility] for previous colon Abscess with fistula in October 2021. Patient currently denies any nausea or vomiting, fevers or chills, no shortness of breath or chest pain. He is afebrile. Gastroenterology was consulted for history of Crohn's disease with increased ostomy output. He had a CT of the abdomen and pelvis as part of his workup reported essentially stable postoperative appearance of the abdomen with ileostomy and ileostomy catheter noted. Previously noted seroma has resolved or has been drained in the interval. Patient was also noted to have elevated LFTs, he denies any history of liver disease, no new medications no recent antibiotics. Today's labs WBC 5.6 hemoglobin 11.8 platelet count 200,000 sodium 137 potassium 3.2 BUN 16 creatinine 1.0 total bilirubin 1.5 AST 94 ALT 181 alkaline phosphatase 163 ESR 34 CRP 1.6 C. diff negative Admitting Labs WBC 6.8 hemoglobin 14.3 hematocrit 42 platelet count 227,000 INR 1.1 sodium 127 potassium 3.7 BUN 93 creatinine 1.1 total bilirubin 2.3 AST 96 ALT 176 alkaline phosphatase 152 09/12/2022 Patient seen and examined today as follow-up. He had 3500 mL of stool output from ostomy however it does seem to be with a thicker consistency. He states he has lower abdominal pain but that is chronic. No nausea or vomiting. States he is eating small amounts of food. Has TPN running. No other acute changes through the night. 09/13/2022 Patient seen and examined today as a follow-up. No new complaints. Stool output is decreasing as well as consistency is getting a little bit thicker. Stool output yesterday approximately 2000 mL which is his baseline. Potassium improved. He is afebrile. No nausea or vomiting. Objective - Vital Signs Vital signs: Vital Signs Temp 97.9 F 09/13/22 07:13 Pulse 75 09/13/22 07:13 Resp 18 09/13/22 07:13 BP 84/48 09/13/22 07:13 Pulse Ox 99 09/13/22 09:10 FiO2 21 09/11/22 09:30 Intake & Output 09/12/22 09/13/22 09/13/22 18:59 06:59 18:59 Intake Total 1140 Output Total 2450 300 Balance -2450 840 Weight 90.718 kg Intake: Intake, IV Titration 900 Amount Sodium Chloride 0.9% 1, 900 000 ml @ 75 mls/hr IV . [id number] [facility] Rx#:[id number] Oral 240 Output: Urine 600 Stool 1850 300 Other: Voiding Method External Catheter # Voids 0 0 # Bowel Movements 0 - Exam General appearance: The patient is alert, oriented, appears in no acute distress. HET: Head is normocephalic and atraumatic. Conjunctiva pink. Sclera anicteric. Neck: Supple without lymphadenopathy. Trachea midline. Heart: S1 S2. Regular rate and rhythm. Lungs: Normal expansion. Abdomen: Soft, obese, ostomy with brown liquid stool, multiple scars on abdomen, nondistended. Lower abdominal tenderness. No guarding or rigidity. Skin: No rashes. No jaundice. Extremities: Normal skin color and turgor. No pedal edema. Neurological: No focal deficits. Alert and oriented x3. - Labs CBC & Chem 7: 09/13/22 06:40 09/13/22 06:40 Labs: Abnormal Lab Results - Last 24 Hours (Table) 06/29/23 Range/Units 06:40 Sodium 132 L (137-145) mmol/L BUN 53 H (9-20) mg/dL Total Bilirubin 1.9 H (0.2-1.3) mg/dL Unconjugated Bilirubin 1.2 H (0.0-1.1) mg/dL AST 109 H (17-59) U/L ALT 161 H (4-49) U/L Alkaline Phosphatase 130 H (38-126) U/L Total Protein 6.2 L (6.3-8.2) g/dL Albumin 2.6 L (3.5-5.0) g/dL Microbiology - Last 24 Hours (Table) 09/10/22 17:39 Blood Culture - Preliminary Blood 09/10/22 18:30 Blood Culture - Preliminary Blood Assessment and Plan (1) Crohn's disease Narrative/Plan: 47-year-old male with a history of Crohn's disease diagnosed in 2009 who has had history of abscess with ileocolectomy in 09/2021 with the further abscess devel opment and fistula who underwent further surgery and October 2021 with transfer down to [facility]. Patient now follows with the surgeon near however not following with any gastroenterology following his Crohn's disease. Currently not on any medication he was supposed to start Scolaro when he last saw Dr. Swanson about a year ago. Admitted with weakness, dehydration, increased ostomy output. Patient has elevated CRP and sed rate. Stool Negative for C. difficile. Unclear etiology may be related to Crohn's disease as patient has not had any follow-up in over one year and currently not on any medications. Current Visit: No Status: Acute Code(s): K50.90 - CROHN'S DISEASE, UNSPECIFIED, WITHOUT COMPLICATIONS SNOMED Code(s): 25893283 (2) Diarrhea Narrative/Plan: Lomotil 2 mg 2 tablets 4 times a day added, stool output decreasing inco nsistency is becoming thicker Current Visit: Yes Status: Acute Code(s): R19.7 - DIARRHEA, UNSPECIFIED SNOMED Code(s): 49858745 (3) Dehydration Current Visit: Yes Status: Acute Code(s): E86.0 - DEHYDRATION SNOMED Code(s): 68310892 (4) Hypokalemia Current Visit: Yes Status: Acute Code(s): E87.6 - HYPOKALEMIA SNOMED Code(s): 97889979 (5) Elevated LFTs Narrative/Plan: Presented with elevated LFTs with unclear etiology. No previous history of liver disease. Patient denies any new medications or recent antibiotic use. Patient is morbidly obese and certainly could be related to fatty liver disease. Will order liver ultrasound and liver serologies to rule out other etiologies. Also medication list reviewed with no obvious hepatotoxic medications. Liver serologies negative to date. Current Visit: Yes Status: Acute Code(s): R79.89 - OTHER SPECIFIED ABNORMAL FINDINGS OF BLOOD CHEMISTRY SNOMED Code(s): 299970579 Plan: 1. Continue symptomatic and supportive care 2. C. diff and stool cultures ordered 3. Diet as tolerated 4. Liver ultrasound ordered 5. Liver serologies ordered 6. Avoid hepatotoxic medications 7. Lomotil 2 tabs 4 times a day 8. Replace potassium per protocol 9. Will plan for outpatient follow-up for LFTs and referral down to [facility] Crohn's specialist Dr. Major 10. Patient is cleared from gastroenterology for discharge. Thank you for this consultation, we will sign off at this time. Dr. Adalgisa Peterson I agree with the dictator's note, documented as a scribe by Tahira Gutierrez.
[2022-09-13] MEDS ORDERED: [UNRECOGNIZED DRUG - OTHER] IV SCH (19:00)
[2022-09-13] MEDS ORDERED: SODIUM PHOSPHATE IV SCH (19:00)
[2022-09-13] MEDS ORDERED: POTASSIUM CHLORIDE IV SCH (19:00)
[2022-09-13] MEDS ORDERED: SODIUM ACETATE IV SCH (19:00)
[2022-09-14] MEDS: MORPHINE SULFATE 2 MG/ML SYRINGE IVP PRN ×3 (00:43→20:01)
[2022-09-14] MEDS: SODIUM CHLORIDE 0.9% 1,000 ML IV SCH ×3 (05:56→16:39)
[2022-09-14 07:48] LABS: Potassium 3.6 mmol/L (3.5-5.1)
[2022-09-14 07:49] LABS: African American GFR (CKD) >90 (>60 ml/min/1.73 sqM); Anion Gap 4 mmol/L; Blood Urea Nitrogen 29 mg/dL (9-20); Calcium 8.8 mg/dL (8.4-10.2); Carbon Dioxide 23 mmol/L (22-30); Chloride 108 mmol/L (98-107); Glucose 82 mg/dL (74-99); Magnesium 1.6 mg/dL (1.6-2.3); Non-African American GFR(CKD) >90 (>60 ml/min/1.73 sqM); Phosphorus 1.8 mg/dL (2.5-4.5); Sodium 135 mmol/L (137-145)
[2022-09-14] MEDS ORDERED: Phosphorus Replacement Protoco 1 EACH MISC MISCELLANE PRN ×2 (08:18→14:44)
[2022-09-14] MEDS ORDERED: POTASSIUM CHLORIDE ER 20 MEQ TAB.ER PO STA (08:19)
[2022-09-14] MEDS ORDERED: MAGNESIUM SULFATE-D5W PMX 1 GM in DEXTROSE/WATER 1 100ML.BAG IVPB ONE (08:19)
[2022-09-14] MEDS ORDERED: HYDROcodone/APAP 5-325MG 1 EACH TAB PO PRN (08:26)
[2022-09-14] MEDS ORDERED: HYDROcodone/APAP 5-325MG 1 EACH TAB PO STA (08:26)
[2022-09-14] MEDS ORDERED: SODIUM CHLORIDE 0.9% 1,000 ML IV ONE (08:32)
[2022-09-14] MEDS: ENOXAPARIN 80 MG/0.8 ML SYRINGE SQ SCH ×2 (08:59→20:03)
[2022-09-14] MEDS: DIPHENOX-ATROP 2.5-0.025 MG 1 EACH TAB PO SCH ×4 (08:59→20:02)
[2022-09-14] MEDS: PANTOPRAZOLE 40 MG TABLET PO SCH (09:00)
[2022-09-14] MEDS ORDERED: MVI, ADULT NO.4 WITH VIT K 10 ML, TRACE (CONC-1ML/DOSE) 1 ML, SODIUM ACETATE 40 MEQ, PO... IV SCH ×7 (09:00)
[2022-09-14] MEDS: AMOXIC-POT CLAV 875-125MG 1 EACH TAB PO SCH ×2 (09:01→20:02)
[2022-09-14] MEDS: MVI, ADULT NO.4 WITH VIT K 10 ML, TRACE (CONC-1ML/DOSE) 1 ML, SODIUM ACETATE 40 MEQ, PO... IV SCH ×7 (09:37)
[2022-09-14] MEDS ORDERED: SODIUM PHOSPHATE 10 MMOL in SODIUM CHLORIDE 0.9% 250 ML IVPB ONE (15:30)
[2022-09-14] MEDS ORDERED: MIDODRINE 5 MG TAB PO ONE (16:27)
[2022-09-14] MEDS ORDERED: SODIUM CHLORIDE 0.9% 500 ML 500 ML IV ONE (16:27)
[2022-09-14] MEDS ORDERED: SODIUM ACETATE IV SCH ×5 (19:00)
[2022-09-14] MEDS ORDERED: [UNRECOGNIZED DRUG - OTHER] IV SCH ×5 (19:00)
[2022-09-14] MEDS ORDERED: POTASSIUM ACETATE IV SCH ×5 (19:00)
[2022-09-14] MEDS ORDERED: SODIUM PHOSPHATE IV SCH ×5 (19:00)
[2022-09-14] MEDS: ONDANSETRON 4 MG/2 ML VIAL IVP PRN (21:44)
[2022-09-15] MEDS: SODIUM CHLORIDE 0.9% 1,000 ML IV SCH ×3 (00:26→17:23)
[2022-09-15] MEDS: MORPHINE SULFATE 2 MG/ML SYRINGE IVP PRN ×5 (00:30→22:21)
--- NOTE | 2022-09-15 06:48 | P.PN ---
Subjective This Is a pleasant 47 years old male with past medical history of CVA/TIA, Deep Vein Thrombosis , Progressing left upper thigh pain and swelling and left leg weakness., Crohns. right leg below knee amputation Patient brought into ER via EMS with complaints of worsening weakness. Per EMS patients family, he is not acting normal and is less responsive than what he normally is. When I saw the patient he was awake and alert and oriented, little lethargic and looks tired. Patient says that the [facility] and he came in to the hospital is that he has been feeling weak for the last 2 days. Patient is bedbound mostly wheelchair, he has history of right BKA, also he has history of right lower quadrant ileostomy and he has central line in the left upper chest for TPN since March. Patient says that he has chronic abdominal pain in the middle of the abdomen and around his ileostomy bag about 5/10 felt like burning, states that it was 7/10 before which is a slightly worsened than his baseline. He is not in distress due to pain. He says that usually he has 2 bowel movements through his ileostomy back normally however recently he is been having 3-4 bowel movements and more loose however when I examined him he has watery bowel movements in his ileostomy bag. Also patient is on Lovenox 80 mg twice daily at home for he has history of DVT. He denies any urinary complaints. He denies chest pain dyspnea or coughing. No headache dizziness weakness or numbness. No smoking or alcohol. He follow-up with a surgeon Dr. Zee at [facility] and he supposed to refer him to GI specialist at [facility]. His PCP is Dr. Ivey and he lives in [facility] on Patient is mildly hypotensive, systolic blood pressure usually 100-120, currently in the 90s to 100 other Vital signs stable CBC, INR is unremarkable Sodium is 127. Creatinine 1.18. Magnesium 3.9. Total bilirubin is 2.3, AST 96 which is elevated and ALT 176. Influenza, casillas and RSV viruses are undetected CT of the brain: No acute process CT of the abdomen and pelvis showing postoperative changes with no acute changes. He received 5 L of normal saline and admitted with GI consult for increased right lower quadrant ostomy output, and review of his history of Crohn's disease. 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 Has watery diarrhea per his ileostomy bag , however patient feels hungry and is able to drink. He needs assistance from staff to help.. Other than that he is getting TPN from home discontinued. The patient consult on the case with adjust electrolytes. Vitals and labs reviewed and developed shortness replace per protocol. Liver enzymes slightly worsened with keep monitoring. Mild hypernatremia and stable. The pressure sore on the low side, therefore we are going to hold his metopr olol. He is on Lovenox from home for his history of DVT Crohn disease exacerbation is suspected however is dressed and CRP already mildly elevated, patient currently THE TREATMENT PROTOCOLS, GI SURFACE OF THE CASE 09/13/2022 Patient still have significant for coronary diarrhea through his ileostomy bag. More than 3 L of output. Blood pressure is on the low side but patient is bedbound and he is as symptomatic. Patient states that his abdominal pain is chronic with no recent changes, he has good appetite and tolerates diet somehow and he vomited once earlier. He is still getting TPN. No other new complaints. Going to give a bolus of normal saline 500 mL and decrease his normal saline fusion up to 1 25 mL/h Stool studies and C. diff is negative. Stool culture and WBC still pending. Liver ultrasound was of poor quality. Patient informed that he needs to follow up with [facility]arc[facility] Iniguez Crohn's disease specialist Dr. Major upon discharge and he agrees 09/14/2022 Patient clinically looks the same still has the same abdominal pain and tenderness which he states this is chronic, no vomiting, he is tolerating his diet, he still has watery stool and his back but is not sure how much is been emptied here compared to home. Today I discussed the case with GI team who cleared the patient for discharge. However Blood pressure was slightly of the low side several give him extra fluid 1.5 L of normal saline boluses on the top of infusion at 1 25 mL/h on the top of his TPN. Blood pressure started to improve by the end of the day.Patient still needs IV fluid hydration and monitoring of his blood pressure sore is not ready for discharge. CBC and BMP and a positive reviewed, mildly borderline low electrolytes lactic potassium sodium phosphorus and magnesium was replaced. Also patient with no fever or leukocytosis but ohcalcitonin is elevated at 0.47, infection and colitis is suspected therefore patient was started on Augmentin. And he tolerates that well. Labs reviewed Patient currently getting TPN, NS@ 125, Augmentin, Lovenox 80 mg twice a day Patient overall improvement and was stabilized blood pressure may be considered for discharge There is found to be GI coverage over the common weekend Objective - Vital Signs Vital signs: Vital Signs Temp 98.6 F 09/14/22 08:08 Pulse 91 09/14/22 08:08 Resp 19 09/14/22 08:08 BP 94/58 09/14/22 08:08 Pulse Ox 98 09/14/22 08:08 FiO2 21 09/11/22 09:30 Intake & Output 09/13/22 09/14/22 09/14/22 18:59 06:59 18:59 Output Total 9701 2223 500 Balance -5585 -2223 -500 Weight 90.718 kg Output: Urine 700 701 Stool 1775 1522 500 Other: Voiding Method External Catheter - Exam -GENERAL: The patient is alert and oriented x3, not in any acute distress. Well developed, well nourished. Patient is lethargic HEENT: Pupils are round and equally reacting to light. EOMI. No scleral icterus. No conjunctival pallor. Normocephalic, atraumatic. No pharyngeal erythema. No thyromegaly. CARDIOVASCULAR: S1 and S2 present. No murmurs, rubs, or gallops. -PULMONARY: Chest is clear to auscultation, no wheezing , no crackles. Chest Central line -ABDOMEN: Soft, nontender, normoactive bowel sounds. No palpable organomegaly. Right lower quadrant large ileostomy bag, with surrounding abdominal wall scarring. With surrounding tenderness, no rebound tenderness or guarding MUSCULOSKELETAL: No joint swelling or deformity. -EXTREMITIES: No cyanosis, clubbing, or pedal edema. Right BKA NEUROLOGICAL: Gross neurological examination did not reveal any focal deficits. SKIN: No rashes. no petechiae. - Labs CBC & Chem 7: 09/13/22 06:40 09/14/22 06:38 Labs: Abnormal Lab Results - Last 24 Hours (Table) 09/13/22 09/14/22 Range/Units 06:40 06:38 Sodium 135 L (137-145) mmol/L Chloride 108 H (98-107) mmol/L BUN 29 H (9-20) mg/dL Phosphorus 1.8 L (2.5-4.5) mg/dL Procalcitonin 0.47 H (0.02-0.09) ng/mL Microbiology - Last 24 Hours (Table) 09/10/22 17:39 Blood Culture - Preliminary Blood 09/10/22 18:30 Blood Culture - Preliminary Blood 09/11/22 10:30 Stool Culture - Preliminary Stool Assessment and Plan Assessment: High right lower quadrant ostomy output and review of Crohn's disease Dehydration secondary to above Hypovolemic hypernatremia Transaminitis with hyperbilirubinemia Generalized weakness History of CVA history of deep venous thrombosis on Lovenox at home history of Crohn's disease status post colectomy and colostomy bag placement History of right below knee amputation Chronically bedbound right BKA Plan: Increase intravenous hydration check stool studies continue with TPN Follow-up stool studies Add midodrine Gastrointestinal service consult regarding evaluated the patient Labs and medication were reviewed.. Continue same treatment. Continue with symptomatic treatment. Resume home medication. Monitor labs and vitals. DVT and GI prophylaxis. Further recommendations as per clinical course of the patient DVT prophylaxis: Subcutaneous Lovenox GI Prophylaxis: ppi Prognosis is guarded
[2022-09-15] MEDS: DIPHENOX-ATROP 2.5-0.025 MG 1 EACH TAB PO SCH ×4 (09:05→22:21)
[2022-09-15] MEDS: AMOXIC-POT CLAV 875-125MG 1 EACH TAB PO SCH ×2 (09:05→22:21)
[2022-09-15] MEDS: PANTOPRAZOLE 40 MG TABLET PO SCH (09:05)
[2022-09-15] MEDS: FAT EMULSION 20% 250 ML in EMPTY BAG 1 BAG IV SCH (09:06)
[2022-09-15] MEDS: ENOXAPARIN 80 MG/0.8 ML SYRINGE SQ SCH (09:06)
[2022-09-15] MEDS: MVI, ADULT NO.4 WITH VIT K 10 ML, TRACE (CONC-1ML/DOSE) 1 ML, SODIUM ACETATE 40 MEQ, PO... IV SCH ×7 (10:44)
--- NOTE | 2022-09-15 13:57 | P.PN ---
Subjective This Is a pleasant 47 years old male with past medical history of CVA/TIA, Deep Vein Thrombosis , Progressing left upper thigh pain and swelling and left leg weakness., Crohns. right leg below knee amputation Patient brought into ER via EMS with complaints of worsening weakness. Per EMS patients family, he is not acting normal and is less responsive than what he normally is. When I saw the patient he was awake and alert and oriented, little lethargic and looks tired. Patient says that the [facility] and he came in to the hospital is that he has been feeling weak for the last 2 days. Patient is bedbound mostly wheelchair, he has history of right BKA, also he has history of right lower quadrant ileostomy and he has central line in the left upper chest for TPN since March. Patient says that he has chronic abdominal pain in the middle of the abdomen and around his ileostomy bag about 5/10 felt like burning, states that it was 7/10 before which is a slightly worsened than his baseline. He is not in distress due to pain. He says that usually he has 2 bowel movements through his ileostomy back normally however recently he is been having 3-4 bowel movements and more loose however when I examined him he has watery bowel movements in his ileostomy bag. Also patient is on Lovenox 80 mg twice daily at home for he has history of DVT. He denies any urinary complaints. He denies chest pain dyspnea or coughing. No headache dizziness weakness or numbness. No smoking or alcohol. He follow-up with a surgeon Dr. Zee at [facility] and he supposed to refer him to GI specialist at [facility]. His PCP is Dr. Ivey and [facility] Patient is mildly hypotensive, systolic blood pressure usually 100-120, currently in the 90s to 100 other Vital signs stable CBC, INR is unremarkable Sodium is 127. Creatinine 1.18. Magnesium 3.9. Total bilirubin is 2.3, AST 96 which is elevated and ALT 176. Influenza, casillas and RSV viruses are undetected CT of the brain: No acute process CT of the abdomen and pelvis showing postoperative changes with no acute changes. He received 5 L of normal saline and admitted with GI consult for increased right lower quadrant ostomy output, and review of his history of Crohn's disease. C. 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 Has watery diarrhea per his ileostomy bag , however patient feels hungry and is able to drink. He needs assistance from staff to help.. Other than that he is getting TPN from home discontinued. The patient consult on the case with adjust electrolytes. Vitals and labs reviewed and developed shortness replace per protocol. Liver enzymes slightly worsened with keep monitoring. Mild hypernatremia and stable. The pressure sore on the low side, therefore we are going to hold his metopr olol. He is on Lovenox from home for his history of DVT Crohn disease exacerbation is suspected however is dressed and CRP already mildly elevated, patient currently THE TREATMENT PROTOCOLS, GI SURFACE OF THE CASE 09/13/2022 Patient still have significant for coronary diarrhea through his ileostomy bag. More than 3 L of output. Blood pressure is on the low side but patient is bedbound and he is as symptomatic. Patient states that his abdominal pain is chronic with no recent changes, he has good appetite and tolerates diet somehow and he vomited once earlier. He is still getting TPN. No other new complaints. Going to give a bolus of normal saline 500 mL and decrease his normal saline fusion up to 1 25 mL/h Stool studies and C. diff is negative. Stool culture and WBC still pending. Liver ultrasound was of poor quality. Patient informed that he needs to follow up with Jmaarcus Iniguez Crohn's disease specialist Dr. Major upon discharge and he agrees 09/14/2022 Patient clinically looks the same still has the same abdominal pain and tenderness which he states this is chronic, no vomiting, he is tolerating his diet, he still has watery stool and his back but is not sure how much is been emptied here compared to home. Today I discussed the case with GI team who cleared the patient for discharge. However Blood pressure was slightly of the low side several give him extra fluid 1.5 L of normal saline boluses on the top of infusion at 1 25 mL/h on the top of his TPN. Blood pressure started to improve by the end of the day.Patient still needs IV fluid hydration and monitoring of his blood pressure sore is not ready for discharge. CBC and BMP and a positive reviewed, mildly borderline low electrolytes lactic potassium sodium phosphorus and magnesium was replaced. Also patient with no fever or leukocytosis but ohcalcitonin is elevated at 0.47, infection and colitis is suspected therefore patient was started on Augmentin. And he tolerates that well. Labs reviewed Patient currently getting TPN, NS@ 125, Augmentin, Lovenox 80 mg twice a day Patient overall improvement and was stabilized blood pressure may be considered for discharge There is found to be GI coverage over the common weekend 09/15/2022 patient was kept yesterday because blood pressure was on the low side, he received a bolus of normal saline and today blood pressure is improving with systolic more than 100 and sometimes up to 130s. However patient was getting normal saline at 1 25 mL/h. Don't allow it to 75 mL per hour. Abdomen without patient reports no change in his clinical situation, I still have this chronic abdominal pain, no vomiting. This still distended TPN. And ileostomy bag is draining semisolid stool. Patient was started on Augmentin yesterday. Prior to discuss troponin is willie vated. No fever or leukocytosis. Speck and discharged in 24-48 hours Objective - Vital Signs Vital signs: Vital Signs Temp 99.2 F 09/15/22 08:00 Pulse 105 H 09/15/22 08:00 Resp 17 09/15/22 08:00 BP 105/66 09/15/22 08:00 Pulse Ox 94 L 09/15/22 08:00 FiO2 21 09/11/22 09:30 Intake & Output 09/14/22 09/15/22 09/15/22 18:59 06:59 18:59 Output Total 2950 2500 900 Balance -2950 -2500 -900 Weight 90.718 kg 90.718 kg Output: Urine 550 700 Stool 2400 1800 900 Other: Voiding Method External Catheter - Exam -GENERAL: The patient is alert and oriented x3, not in any acute distress. Well developed, well nourished. Patient is lethargic HEENT: Pupils are round and equally reacting to light. EOMI. No scleral icterus. No conjunctival pallor. Normocephalic, atraumatic. No pharyngeal erythema. No thyromegaly. CARDIOVASCULAR: S1 and S2 present. No murmurs, rubs, or gallops. -PULMONARY: Chest is clear to auscultation, no wheezing , no crackles. Chest Central line -ABDOMEN: Soft, nontender, normoactive bowel sounds. No palpable organomegaly. Right lower quadrant large ileostomy bag, with surrounding abdominal wall scar ring. With surrounding tenderness, no rebound tenderness or guarding MUSCULOSKELETAL: No joint swelling or deformity. -EXTREMITIES: No cyanosis, clubbing, or pedal edema. Right BKA NEUROLOGICAL: Gross neurological examination did not reveal any focal deficits. SKIN: No rashes. no petechiae. - Labs CBC & Chem 7: 09/13/22 06:40 09/14/22 06:38 Labs: Microbiology - Last 24 Hours (Table) 09/11/22 10:30 Stool Culture - Final Stool Assessment and Plan Assessment: High right lower quadrant ostomy output and review of Crohn's disease Dehydration secondary to above Hypovolemic hypernatremia Transaminitis with hyperbilirubinemia Generalized weakness History of CVA history of deep venous thrombosis on Lovenox at home history of Crohn's disease status post colectomy and colostomy bag placement History of right below knee amputation Chronically bedbound right BKA Plan: Increase intravenous hydration, Leonila normal saline to 75 mL/h check stool studies continue with TPN Follow-up stool studies Gastrointestinal service consult regarding evaluated the patient, GI team cleared the patient for discharge. However we Because He Needs More Hydration Labs and medication were reviewed.. Continue same treatment. Continue with sy mptomatic treatment. Resume home medication. Monitor labs and vitals. DVT and GI prophylaxis. Further recommendations as per clinical course of the patient DVT prophylaxis: Subcutaneous Lovenox GI Prophylaxis: ppi Prognosis is guarded
[2022-09-15 15:26] LABS: African American GFR (CKD) >90 (>60 ml/min/1.73 sqM); Anion Gap 2 mmol/L; Blood Urea Nitrogen 16 mg/dL (9-20); Calcium 8.6 mg/dL (8.4-10.2); Carbon Dioxide 24 mmol/L (22-30); Chloride 108 mmol/L (98-107); Glucose 72 mg/dL (74-99); Magnesium 1.5 mg/dL (1.6-2.3); Non-African American GFR(CKD) >90 (>60 ml/min/1.73 sqM); Phosphorus 1.8 mg/dL (2.5-4.5); Potassium 3.4 mmol/L (3.5-5.1); Sodium 134 mmol/L (137-145)
[2022-09-15] MEDS: [UNRECOGNIZED DRUG - OTHER] IV SCH ×5 (22:22)
[2022-09-15] MEDS: SODIUM PHOSPHATE IV SCH ×5 (22:22)
[2022-09-15] MEDS: SODIUM ACETATE IV SCH ×5 (22:22)
[2022-09-15] MEDS: POTASSIUM ACETATE IV SCH ×5 (22:22)
[2022-09-15] MEDS ORDERED: ACETAMINOPHEN TAB 325 MG TAB PO PRN (22:56)
[2022-09-16] MEDS ORDERED: PIPERACILLIN-TAZOBACTAM 3.375 GM in SODIUM CHLORIDE 0.9% 100 ML IVPB SCH ×2
[2022-09-16] MEDS: ENOXAPARIN 80 MG/0.8 ML SYRINGE SQ SCH ×3 (00:59→21:05)
[2022-09-16 02:55] LABS: African American GFR (CKD) >90 (>60 ml/min/1.73 sqM); Anion Gap 4 mmol/L; Blood Urea Nitrogen 17 mg/dL (9-20); Calcium 8.2 mg/dL (8.4-10.2); Carbon Dioxide 24 mmol/L (22-30); Chloride 106 mmol/L (98-107); Glucose 127 mg/dL (74-99); Magnesium 1.5 mg/dL (1.6-2.3); Non-African American GFR(CKD) >90 (>60 ml/min/1.73 sqM); Phosphorus 1.7 mg/dL (2.5-4.5); Potassium 3.1 mmol/L (3.5-5.1); Sodium 134 mmol/L (137-145)
[2022-09-16] MEDS: PIPERACILLIN-TAZOBACTAM 3.375 GM in SODIUM CHLORIDE 0.9% 100 ML IVPB SCH ×3 (03:17→21:25)
[2022-09-16] MEDS: MORPHINE SULFATE 2 MG/ML SYRINGE IVP PRN ×5 (03:18→21:24)
[2022-09-16] MEDS: SODIUM CHLORIDE 0.9% 1,000 ML IV SCH ×3 (04:24→23:43)
[2022-09-16] MEDS: PANTOPRAZOLE 40 MG TABLET PO SCH (09:04)
[2022-09-16] MEDS: DIPHENOX-ATROP 2.5-0.025 MG 1 EACH TAB PO SCH ×4 (09:04→21:05)
[2022-09-16] MEDS: MVI, ADULT NO.4 WITH VIT K 10 ML, TRACE (CONC-1ML/DOSE) 1 ML, SODIUM ACETATE 50 MEQ, PO... IV SCH ×7 (11:08)
[2022-09-16] MEDS ORDERED: SODIUM PHOSPHATE 30 MMOL in DEXTROSE 5% IN WATER 250 ML IVPB ONE ×2 (12:00)
[2022-09-16] MEDS ORDERED: POTASSIUM CHLORIDE ER 20 MEQ TAB.ER PO STA (12:20)
--- NOTE | 2022-09-16 12:25 | P.PN ---
Subjective This Is a pleasant 47 years old male with past medical history of CVA/TIA, Deep Vein Thrombosis , Progressing left upper thigh pain and swelling and left leg weakness., Crohns. right leg below knee amputation Patient brought into ER via EMS with complaints of worsening weakness. Per EMS patients family, he is not acting normal and is less responsive than what he normally is. When I saw the patient he was awake and alert and oriented, little lethargic and looks tired. Patient says that the [facility] and he came in to the hospital is that he has been feeling weak for the last 2 days. Patient is bedbound mostly wheelchair, he has history of right BKA, also he has history of right lower quadrant ileostomy and he has central line in the left upper chest for TPN since March. Patient says that he has chronic abdominal pain in the middle of the abdomen and around his ileostomy bag about 5/10 felt like burning, states that it was 7/10 before which is a slightly worsened than his baseline. He is not in distress due to pain. He says that usually he has 2 bowel movements through his ileostomy back normally however recently he is been having 3-4 bowel movements and more loose however when I examined him he has watery bowel movements in his ileostomy bag. Also patient is on Lovenox 80 mg twice daily at home for he has history of DVT. He denies any urinary complaints. He denies chest pain dyspnea or coughing. No headache dizziness weakness or numbness. No smoking or alcohol. He follow-up with a surgeon Dr. Zee at [facility] and he supposed to refer him to GI specialist at [facility]. His PCP is Dr. Ivey and he lives in [facility] on Patient is mildly hypotensive, systolic blood pressure usually 100-120, currently in the 90s to 100 other Vital signs stable CBC, INR is unremarkable Sodium is 127. Creatinine 1.18. Magnesium 3.9. Total bilirubin is 2.3, AST 96 which is elevated and ALT 176. Influenza, casillas and RSV viruses are undetected CT of the brain: No acute process CT of the abdomen and pelvis showing postoperative changes with no acute changes. He received 5 L of normal saline and admitted with GI consult for increased right lower quadrant ostomy output, and review of his history of Crohn's disease. C. 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 Has watery diarrhea per his ileostomy bag , however patient feels hungry and is able to drink. He needs assistance from staff to help.. Other than that he is getting TPN from home discontinued. The patient consult on the case with adjust electrolytes. Vitals and labs reviewed and developed shortness replace per protocol. Liver enzymes slightly worsened with keep monitoring. Mild hypernatremia and stable. The pressure sore on the low side, therefore we are going to hold his metopr olol. He is on Lovenox from home for his history of DVT Crohn disease exacerbation is suspected however is dressed and CRP already mildly elevated, patient currently THE TREATMENT PROTOCOLS, GI SURFACE OF THE CASE 09/13/2022 Patient still have significant for coronary diarrhea through his ileostomy bag. More than 3 L of output. Blood pressure is on the low side but patient is bedbound and he is as symptomatic. Patient states that his abdominal pain is chronic with no recent changes, he has good appetite and tolerates diet somehow and he vomited once earlier. He is still getting TPN. No other new complaints. Going to give a bolus of normal saline 500 mL and decrease his normal saline fusion up to 1 25 mL/h Stool studies and C. diff is negative. Stool culture and WBC still pending. Liver ultrasound was of poor quality. Patient informed that he needs to follow up with Jamarcus Iniguez Crohn's disease specialist Dr. Major upon discharge and he agrees 09/14/2022 Patient clinically looks the same still has the same abdominal pain and tenderness which he states this is chronic, no vomiting, he is tolerating his diet, he still has watery stool and his back but is not sure how much is been emptied here compared to home. Today I discussed the case with GI team who cleared the patient for discharge. However Blood pressure was slightly of the low side several give him extra fluid 1.5 L of normal saline boluses on the top of infusion at 1 25 mL/h on the top of his TPN. Blood pressure started to improve by the end of the day.Patient still needs IV fluid hydration and monitoring of his blood pressure sore is not ready for discharge. CBC and BMP and a positive reviewed, mildly borderline low electrolytes lactic potassium sodium phosphorus and magnesium was replaced. Also patient with no fever or leukocytosis but ohcalcitonin is elevated at 0.47, infection and colitis is suspected therefore patient was started on Augmentin. And he tolerates that well. Labs reviewed Patient currently getting TPN, NS@ 125, Augmentin, Lovenox 80 mg twice a day Patient overall improvement and was stabilized blood pressure may be considered for discharge There is found to be GI coverage over the common weekend 09/15/2022 patient was kept yesterday because blood pressure was on the low side, he received a bolus of normal saline and today blood pressure is improving with systolic more than 100 and sometimes up to 130s. However patient was getting normal saline at 1 25 mL/h. Don't allow it to 75 mL per hour. Abdomen without patient reports no change in his clinical situation, I still have this chronic abdominal pain, no vomiting. This still distended TPN. And ileostomy bag is draining semisolid stool. Patient was started on Augmentin yesterday. Prior to discuss troponin is willie vated. No fever or leukocytosis. Speck and discharged in 24-48 hours 09/16/2022 Patient presents with diarrhea through his ileostomy bag while he is on TPN as an outpatient with oral feeding as well. Since admission his blood pressure was on the soft side, he has chronic abdominal pain and tenderness but he has watery bowel movement. Which was worse than before. C. diff on examination was negative. Inflammatory markers of ESR and CRP were mildly elevated patient evaluated by GI service and cleared for discharge and follow-up with a specialist as an outpatient. However The patient because blood pressure was on the low side and we have treated him with normal saline 75 mL/h. Yesterday overnight he developed a fever of 101.1. Patient was already on Augmentin for the last 48 hours with poorcalcitonin elevated at 0.47. So we stopped his Augmentin and start Zosyn and send blood culture, was sent stool studies and repeat C. diff. Also we consulted infectious disease for further recommendation. We are replacing electrolytes potassium and magnesium as per protocol and follow closely. Discussed with the maintenance technician 3rd shift nurse and the daytime she shift nurse Active Medications Generic Name Dose Route Start Last Admin Trade Name Freq PRN Reason Stop Dose Admin Acetaminophen 325 mg 09/15/22 22:56 09/15/22 23:01 Acetaminophen Tab 325 Mg Tab PO 325 mg Q6HR PRN Administration Fever and/ or Pain Hydrocodone Bitart/Acetaminophen 1 each 09/14/22 08:26 Hydrocodone/Apap 5-325mg 1 Each Tab PO Q6HR PRN Pain Albuterol Sulfate 2.5 mg 09/10/22 19:58 Albuterol Nebulized 2.5 Mg/3 Ml INHALATION RT-Q4H PRN Shortness Of Breath Diphenoxylate HCl/Atropine 2 each 09/11/22 18:00 09/16/22 11:43 Diphenox-Atrop 2.5-0.025 Mg 1 Each Tab PO 2 each QID ANNIE Administration Enoxaparin Sodium 80 mg 09/10/22 20:00 09/16/22 09:04 Enoxaparin 80 Mg/0.8 Ml Syringe SQ 80 mg Q12HR ANNIE Administration Sodium Chloride 1,000 mls @ 100 mls/hr 09/11/22 11:45 09/16/22 11:43 Saline 0.9% IV 100 mls/hr .Q10H ANNIE Administration Fat Emulsion Intravenous 250 250 mls @ 21 mls/hr 09/12/22 09:00 09/15/22 09:06 ml/ IV Solution IV 21 mls/hr WeSa@0900 ANNIE Administration Sodium Acetate 50 meq/ 1,050 mls @ 106 mls/hr 09/15/22 19:00 09/15/22 22:22 Potassium Acetate 40 meq/ IV 106 mls/hr Sodium Phosphate 9 mmol/ DAILY@1900 ANNIE Administration Magnesium Sulfate 1 gm/ Amino Acids/Dextrose Protocol Parenteral Vitamin Supplement 1,061 mls @ 106 mls/hr 09/16/22 09:00 09/16/22 11:08 10 ml/ Zinc/Copper/Manganese/ IV 106 mls/hr Selenium 1 ml/ Sodium Acetate DAILY@0900 ANNIE Administration 50 meq/ Potassium Acetate 40 meq/ Sodium Phosphate 9 mmol/ Magnesium Sulfate 1 gm/ Amino Protocol Acids/Dextrose Piperacillin Sod/Tazobactam 100 mls @ 25 mls/hr 09/16/22 04:00 09/16/22 11:09 Sod 3.375 gm/ Sodium Chloride IVPB 25 mls/hr Q8H ANNIE Administration Protocol Potassium Chloride 20 meq/ IV 100 mls @ 50 mls/hr 09/16/22 16:00 Solution IVPB 09/16/22 19:59 Q2H ANNIE Protocol Magnesium Sulfate/Dextrose 1 100 mls @ 100 mls/hr 09/16/22 16:00 gm/ IV Solution IVPB 09/16/22 17:59 Q1H ANNIE Protocol Sodium Phosphate 30 mmol/ 260 mls @ 65 mls/hr 09/16/22 12:00 09/16/22 11:43 Dextrose/Water IVPB 09/16/22 15:59 65 mls/hr ONCE ONE Administration Protocol Magnesium Sulfate/Dextrose 1 100 mls @ 100 mls/hr 09/16/22 21:00 gm/ IV Solution IVPB 09/16/22 22:59 Q1H ANNIE Lisinopril 2.5 mg 09/11/22 09:00 09/16/22 09:05 Lisinopril 2.5 Mg Tab PO Not Given DAILY ANNIE Miscellaneous Information 1 each 09/11/22 11:42 Potassium Replacement Protocol 1 Each Misc MISCELLANE DAILY PRN Per Protocol Protocol Miscellaneous Information 1 each 09/11/22 11:42 Magnesium Replacement Protocol 1 Each Misc MISCELLANE DAILY PRN Per Protocol Protocol Miscellaneous Information 1 each 09/14/22 14:44 Phosphorus Replacement Protoco 1 Each Misc MISCELLANE DAILY PRN Per Protocol Protocol Morphine Sulfate 2 mg 09/11/22 19:43 09/16/22 09:04 Morphine Sulfate 2 Mg/Ml Syringe IVP 2 mg Q4HR PRN Administration Pain/Discomfort Naloxone HCl 0.2 mg 09/10/22 19:56 Naloxone 0.4 Mg/Ml 1 Ml Vial IV Q2M PRN Opioid Reversal Ondansetron HCl 4 mg 09/10/22 19:56 09/14/22 21:44 Ondansetron 4 Mg/2 Ml Vial IVP 4 mg Q8HR PRN Administration Nausea And Vomiting Pantoprazole Sodium 40 mg 09/11/22 09:00 09/16/22 09:04 Pantoprazole 40 Mg Tablet PO 40 mg DAILY ANNIE Administration Tramadol HCl 50 mg 09/10/22 22:40 09/10/22 23:05 Tramadol 50 Mg Tab PO 50 mg TID PRN Administration Moderate Pain (Scale 4 to 6) Objective - Vital Signs Vital signs: Vital Signs Temp 98.1 F 09/16/22 07:47 Pulse 86 09/16/22 07:47 Resp 17 09/16/22 07:47 BP 97/61 09/16/22 07:47 Pulse Ox 97 09/16/22 07:58 FiO2 21 09/11/22 09:30 Intake & Output 09/15/22 09/16/22 09/16/22 18:59 06:59 18:59 Intake Total 848 Output Total 1700 475 Balance -852 -475 Weight 90.718 kg Intake: Intake, IV Titration 848 Amount Mvi, Adult No.4 with Vit 848 K 10 ml Trace (Conc-1Ml/ Dose) 1 ml Sodium Acetate 40 meq Potassium Acetate 20 meq Sodium Phosphate 9 mmol Magnesium Sulfate gm 0.5 gm In Amino Acids 5 %/Dextrose 20 % 1,000 ml @ 106 mls/hr IV DAILY@ 0900 [facility] Rx#:[id number] Output: Urine 200 Stool 1500 475 Other: Voiding Method External Catheter External Catheter # Voids 1 # Bowel Movements 1 - Exam -GENERAL: The patient is alert and oriented x3, not in any acute distress. Well developed, well nourished. Patient is lethargic HEENT: Pupils are round and equally reacting to light. EOMI. No scleral icterus. No conjunctival pallor. Normocephalic, atraumatic. No pharyngeal erythema. No thyromegaly. CARDIOVASCULAR: S1 and S2 present. No murmurs, rubs, or gallops. -PULMONARY: Chest is clear to auscultation, no wheezing , no crackles. Chest Central line -ABDOMEN: Soft, nontender, normoactive bowel sounds. No palpable organomegaly. Right lower quadrant large ileostomy bag, with surrounding abdominal wall scarring. With surrounding tenderness, no rebound tenderness or guarding MUSCULOSKELETAL: No joint swelling or deformity. -EXTREMITIES: No cyanosis, clubbing, or pedal edema. Right BKA NEUROLOGICAL: Gross neurological examination did not reveal any focal deficits. SKIN: No rashes. no petechiae. - Labs CBC & Chem 7: 09/13/22 06:40 09/16/22 02:24 Labs: Abnormal Lab Results - Last 24 Hours (Table) 09/15/22 09/16/22 Range/Units 14:49 02:24 Sodium 134 L 134 L (137-145) mmol/L Potassium 3.4 L 3.1 L (3.5-5.1) mmol/L Chloride 108 H (98-107) mmol/L Glucose 72 L 127 H (74-99) mg/dL Calcium 8.2 L (8.4-10.2) mg/dL Phosphorus 1.8 L 1.7 L (2.5-4.5) mg/dL Magnesium 1.5 L 1.5 L (1.6-2.3) mg/dL Microbiology - Last 24 Hours (Table) 09/10/22 17:39 Blood Culture - Final Blood 09/10/22 18:30 Blood Culture - Final Blood Assessment and Plan Assessment: Possible infectious gastroenteritis High right lower quadrant ostomy output and review of Crohn's disease Dehydration secondary to above Hypovolemic hypernatremia Transaminitis with hyperbilirubinemia Generalized weakness History of CVA history of deep venous thrombosis on Lovenox at home history of Crohn's disease status post colectomy and colostomy bag placement History of right below knee amputation Chronically bedbound right BKA Plan: Start Zosyn and follow-up blood culture Increase intravenous hydration, Leonila normal saline to 100 mL/h check stool studies continue with TPN Follow-up stool studies Gastrointestinal service consult regarding evaluated the patient, GI team cleared the patient for discharge. However we Because He Needs More Hydration Labs and medication were reviewed.. Continue same treatment. Continue with symptomatic treatment. Resume home medication. Monitor labs and vitals. DVT and GI prophylaxis. Further recommendations as per clinical course of the patient DVT prophylaxis: Subcutaneous Lovenox GI Prophylaxis: ppi Prognosis is guarded
[2022-09-16] MEDS: MAGNESIUM SULFATE-D5W PMX 1 GM in DEXTROSE/WATER 1 100ML.BAG IVPB SCH ×4 (15:10→22:12)
[2022-09-16] MEDS: POTASSIUM CHLORIDE 20 MEQ in WATER FOR INJECTION 1 100ML.BAG IVPB SCH ×2 (15:10→17:17)
[2022-09-16] MEDS: [UNRECOGNIZED DRUG - OTHER] IV SCH ×5 (19:46)
[2022-09-16] MEDS: SODIUM ACETATE IV SCH ×5 (19:46)
[2022-09-16] MEDS: SODIUM PHOSPHATE IV SCH ×5 (19:46)
[2022-09-16] MEDS: POTASSIUM ACETATE IV SCH ×5 (19:46)
--- NOTE | 2022-09-16 22:56 | P.CONS ---
History of Present Illness - Reason for Consult Consult date: 09/16/22 - History of Present Illness Patient is a 47-year-old male who is in the hospital for almost a week presented on 09/10/2022 for evaluation of weakness in this patient who did have a history of prior CVA DVTs or anticoagulation and did have a history of Crohn's disease status post colectomy and ileostomy placement patient also have a PICC line to the left subclavian area placed on March 18, 2022 as the patient r equired TPN at home patient presenting symptom was weakness and significant output in his ileostomy bag no history of any fever or any chills patient on presentation to the hospital was afebrile however he did spike a fever last night of 101.1 degrees following right patient did have a normal white count however no CBC has been done over the last 3 days kidney function has been normal liver was observed mildly elevated on admission and he did have procalcitonin 0.47 on 09/13/2022 patient did have a stool for C. difficile x2 that has been negative hepatitis panel was negative influenza RSV and COVID testing was negative on admission 09/10/2022 patient did have a chest x-ray on admission that was negative for acute cardiopulmonary process patient also have a CT abdominal pelvis on 09/10/2022 stable postoperative appearance of the abdomen with ileostomy previously noted seroma has resolved, patient is currently breathing comfortably on room air patient denies having any chest pain or shortness related has occasional cough nausea but no vomiting patient abdominal pain has been about the same denies any worsening or improvement and still have a significant output in his ileostomy but no blood in the stool Past Medical History Past Medical History: CVA/TIA, Deep Vein Thrombosis (DVT) Additional Past Medical History / Comment(s): left sided weakness, right hand contracture, Hx CVA in 2012, during surgery to repair blood clot, states still has DVT in right arm. Crohns. Ostomy Bag placed in 09/2021. History of Any Multi-Drug Resistant Organisms: None Reported Past Surgical History: Cholecystectomy, Orthopedic Surgery Additional Past Surgical History / Comment(s): Arm surgery, right leg below knee amputation 2017, , ostomy (2021) Past Anesthesia/Blood Transfusion Reactions: No Reported Reaction Past Psychological History: No Psychological Hx Reported Additional Psychological History / Comment(s): PT STATED FEW DAYS AGO STARTED HAVING PAIN IN UPPER THIGH AND SWELLING THAT HAS PROGERESSED Smoking Status: Former smoker Past Alcohol Use History: None Reported Additional Past Alcohol Use History / Comment(s): QUIT SMOKING IN 2017, STARTED SMOKING AT AGE 16, 1PPD. Past Drug Use History: None Reported - Past Family History Father Additional Family Medical History / Comment(s): DAD IN HIS TWENTIES - CAUSE UNKNOWN. Mother Family Medical History: Diabetes Mellitus Brother(s) Family Medical History: Cancer Additional Family Medical History / Comment(s): Kidney cancer as a baby. Medications and Allergies Home Medications Medication Instructions Recorded Confirmed Type Enoxaparin [Lovenox] 80 mg SQ Q12H 07/07/22 09/10/22 History Pantoprazole [Protonix] 40 mg PO DAILY 07/07/22 09/10/22 History lisinopriL [Zestril] 2.5 mg PO DAILY 07/07/22 09/10/22 History methocarbamoL [Methocarbamol] 750 mg PO TID 07/07/22 09/10/22 History Albuterol Sulfate [Albuterol 1 - 2 puff PO RT-Q4H PRN 09/10/22 09/10/22 History Sulfate Hfa] Amoxic-Pot Clav 875-125Mg 1 each PO Q12HR 7 Days #14 tab 09/14/22 Rx [Augmentin 875-125] Diphenox-Atrop 2.5-0.025 mg 2 each PO QID 30 Days #12 tab 09/14/22 Rx [Lomotil] HYDROcodone/APAP 5-325MG [[place] 1 each PO Q6HR PRN 3 Days #12 tab 09/14/22 Rx 5-325] Allergies Allergy/AdvReac Type Severity Reaction Status Date / Time No Known Allergies Allergy Verified 09/10/22 18:42 Physical Exam Vitals: Vital Signs Temp Pulse Resp BP Pulse Ox 09/16/22 13:09 97.9 F 86 17 104/66 93 L 09/16/22 07:58 97 09/16/22 07:47 98.1 F 86 17 97/61 94 L 09/16/22 01:25 100.0 F H 105 H 18 109/51 97 09/15/22 19:50 101.1 F H 94 18 109/51 93 L 09/15/22 17:27 106/62 09/15/22 16:30 98.8 F 86 16 92/55 97 Intake and Output 09/16/22 09/16/22 09/16/22 06:59 14:59 22:59 Intake Total 650 Output Total 475 Balance 175 Intake: Intake, IV Titration 650 Amount Magnesium Sulfate-D5w Pmx 100 1 gm In Dextrose/Water 1 100ml.bag @ 100 mls/hr IVPB Q1H [facility] Rx#: [id number] Magnesium Sulfate-D5w Pmx 100 1 gm In Dextrose/Water 1 100ml.bag @ 100 mls/hr IVPB Q1H [facility] Rx#: [id number] Piperacillin-Tazobactam 3 100 .375 gm In Sodium Chloride 0.9% 100 ml @ 25 mls/hr IVPB Q8H [facility] Rx#: [id number] Potassium Chloride 20 meq 100 In Water For Injection 1 100ml.bag @ 50 mls/hr IVPB Q2H [facility] Rx#: [id number] Sodium Phosphate 30 mmol 250 In Dextrose 5% in Water 250 ml @ 65 mls/hr IVPB ONCE ONE Rx#:[id number] Output: Stool 475 Other: Voiding Method External Catheter # Voids 1 # Bowel Movements 1 Results CBC & Chem 7: 09/17/22 05:45 09/18/22 06:35 Labs: Abnormal Lab Results - Last 24 Hours (Table) 09/15/22 09/16/22 Range/Units 14:49 02:24 Sodium 134 L 134 L (137-145) mmol/L Potassium 3.4 L 3.1 L (3.5-5.1) mmol/L Chloride 108 H (98-107) mmol/L Glucose 72 L 127 H (74-99) mg/dL Calcium 8.2 L (8.4-10.2) mg/dL Phosphorus 1.8 L 1.7 L (2.5-4.5) mg/dL Magnesium 1.5 L 1.5 L (1.6-2.3) mg/dL Microbiology - Last 24 Hours (Table) 09/10/22 17:39 Blood Culture - Final Blood 09/10/22 18:30 Blood Culture - Final Blood Assessment and Plan Plan: 1patient who with fever in this patient the hospital for about a week and did have multiple comorbidities including Crohn's disease status post subtotal colectomy and ileostomy patient also have a PICC line for more than 6 months now and uses TPN patient did have a CT abdominal pelvis on admission did not show any abscess chest x-ray was negative questionably PICC line infection not entirely excluded 2-blood cultures will be obtained from the PICC line peripheral culture obtained yesterday and will be followed check inflammatory markers 3-continue with empiric Zosyn with the patient effusion have responded We will follow on clinical condition and cultures to further adjust medication if needed Thank you for this consultation we will follow the patient along with you Time with Patient: Greater than 30
[2022-09-17] MEDS: MORPHINE SULFATE 2 MG/ML SYRINGE IVP PRN ×5 (01:31→20:35)
[2022-09-17] MEDS: PIPERACILLIN-TAZOBACTAM 3.375 GM in SODIUM CHLORIDE 0.9% 100 ML IVPB SCH ×3 (04:57→20:36)
[2022-09-17 06:21] LABS: Albumin 2.2 g/dL (3.5-5.0); Albumin/Globulin Ratio 0.7; Globulin 3.2 g/dL; Total Bilirubin 1.3 mg/dL (0.2-1.3); Total Protein 5.4 g/dL (6.3-8.2)
[2022-09-17 06:22] LABS: ALT 55 U/L (4-49); AST 32 U/L (17-59); African American GFR (CKD) >90 (>60 ml/min/1.73 sqM); Albumin 2.2 g/dL (3.5-5.0); Albumin/Globulin Ratio 0.7; Alkaline Phosphatase 107 U/L (38-126); Anion Gap 3 mmol/L; Blood Urea Nitrogen 15 mg/dL (9-20); Calcium 7.8 mg/dL (8.4-10.2); Carbon Dioxide 27 mmol/L (22-30); Chloride 104 mmol/L (98-107); Globulin 3.2 g/dL; Glucose 83 mg/dL (74-99); Magnesium 2.2 mg/dL (1.6-2.3); Non-African American GFR(CKD) >90 (>60 ml/min/1.73 sqM); Potassium 3.7 mmol/L (3.5-5.1); Sodium 134 mmol/L (137-145); Total Bilirubin 1.3 mg/dL (0.2-1.3); Total Protein 5.4 g/dL (6.3-8.2)
[2022-09-17 06:34] LABS: Basophils % (A) 0 %; Eosinophils # (A) 0.1 k/uL (0-0.7); Eosinophils % (A) 3 %; HCT 32.2 % (39.0-53.0); Lymphocytes # (A) 1.4 k/uL (1.0-4.8); Lymphocytes % (A) 29 %; MCH 31.4 pg (25.0-35.0); MCHC 32.8 g/dL (31.0-37.0); MCV 95.9 fL (80.0-100.0); Mean Platelet Volume 8.2; Monocytes # (A) 0.3 k/uL (0-1.0); Monocytes % (A) 6 %; Neutrophils # (A) 2.9 k/uL (1.3-7.7); Neutrophils % (A) 59 %; Platelet Count 171 k/uL (150-450); RBC 3.36 m/uL (4.30-5.90); RDW 13.6 % (11.5-15.5); WBC 4.8 k/uL (3.8-10.6)
[2022-09-17 06:38] LABS: HGB 10.6 gm/dL (13.0-17.5)
[2022-09-17] MEDS: MVI, ADULT NO.4 WITH VIT K 10 ML, TRACE (CONC-1ML/DOSE) 1 ML, SODIUM ACETATE 50 MEQ, PO... IV SCH ×7 (09:17)
[2022-09-17] MEDS: DIPHENOX-ATROP 2.5-0.025 MG 1 EACH TAB PO SCH ×4 (09:18→20:55)
[2022-09-17] MEDS: PANTOPRAZOLE 40 MG TABLET PO SCH (09:18)
[2022-09-17] MEDS: ENOXAPARIN 80 MG/0.8 ML SYRINGE SQ SCH ×2 (09:18→20:36)
--- NOTE | 2022-09-17 12:10 | XR ---
EXAMINATION TYPE: XR chest 1V portable DATE OF EXAM: 09/17/2022 COMPARISON: 09/10/2022 INDICATION: Colostomy dehydration TECHNIQUE: Single frontal view of the chest is obtained. FINDINGS: The heart size is normal. The pulmonary vasculature is normal. No suspicious focal consolidation is evident. There is chronic elevation of the right diaphragm. Port is present on the left with the tip in the pr oximal right atrium. Surgical clips are in the right neck IMPRESSION: 1. No acute pulmonary process. 2. Chronic elevation right diaphragm
[2022-09-17] MEDS ORDERED: SODIUM PHOSPHATE 15 MMOL in DEXTROSE 5% IN WATER 250 ML IVPB ONE ×2 (16:00)
[2022-09-17] MEDS: SODIUM CHLORIDE 0.9% 1,000 ML IV SCH (17:50)
[2022-09-17] MEDS ORDERED: POTASSIUM ACETATE IV SCH ×5 (19:00)
[2022-09-17] MEDS ORDERED: [UNRECOGNIZED DRUG - OTHER] IV SCH ×5 (19:00)
[2022-09-17] MEDS ORDERED: SODIUM ACETATE IV SCH ×5 (19:00)
[2022-09-17] MEDS ORDERED: SODIUM PHOSPHATE IV SCH ×5 (19:00)
--- NOTE | 2022-09-17 22:18 | P.PN ---
Subjective This Is a pleasant 47 years old male with past medical history of CVA/TIA, Deep Vein Thrombosis , Progressing left upper thigh pain and swelling and left leg weakness., Crohns. right leg below knee amputation Patient brought into ER via EMS with complaints of worsening weakness. Per EMS patients family, he is not acting normal and is less responsive than what he normally is. When I saw the patient he was awake and alert and oriented, little lethargic and looks tired. Patient says that the [facility] and he came in to the hospital is that he has been feeling weak for the last 2 days. Patient is bedbound mostly wheelchair, he has history of right BKA, also he has history of right lower quadrant ileostomy and he has central line in the left upper chest for TPN since March. Patient says that he has chronic abdominal pain in the middle of the abdomen and around his ileostomy bag about 5/10 felt like burning, states that it was 7/10 before which is a slightly worsened than his baseline. He is not in distress due to pain. He says that usually he has 2 bowel movements through his ileostomy back normally however recently he is been having 3-4 bowel movements and more loose however when I examined him he has watery bowel movements in his ileostomy bag. Also patient is on Lovenox 80 mg twice daily at home for he has history of DVT. He denies any urinary complaints. He denies chest pain dyspnea or coughing. No headache dizziness weakness or numbness. No smoking or alcohol. He follow-up with a surgeon Dr. Zee at [facility] and he supposed to refer him to GI specialist at [facility]. His PCP is Dr. Ivey and he lives in [facility] on Patient is mildly hypotensive, systolic blood pressure usually 100-120, currently in the 90s to 100 other Vital signs stable CBC, INR is unremarkable Sodium is 127. Creatinine 1.18. Magnesium 3.9. Total bilirubin is 2.3, AST 96 which is elevated and ALT 176. Influenza, casillas and RSV viruses are undetected CT of the brain: No acute process CT of the abdomen and pelvis showing postoperative changes with no acute changes. He received 5 L of normal saline and admitted with GI consult for increased right lower quadrant ostomy output, and review of his history of Crohn's disease. C. diff is negative Influenza, [employer], coronavirus are undetected 09/12/2022 Today patient awake alert in distress. Has watery diarrhea per his ileostomy bag , however patient feels hungry and is able to drink. He needs assistance from staff to help.. Other than that he is getting TPN from home discontinued. The patient consult on the case with adjust electrolytes. Vitals and labs reviewed and developed shortness replace per protocol. Liver enzymes slightly worsened with keep monitoring. Mild hypernatremia and stable. The pressure sore on the low side, therefore we are going to hold his metopr olol. He is on Lovenox from home for his history of DVT Crohn disease exacerbation is suspected however is dressed and CRP already mildly elevated, patient currently [employer], GI SURFACE OF THE CASE 09/13/2022 Patient still have significant for coronary diarrhea through his ileostomy bag. More than 3 L of output. Blood pressure is on the low side but patient is bedbound and he is as symptomatic. Patient states that his abdominal pain is chronic with no recent changes, he has good appetite and tolerates diet somehow and he vomited once earlier. He is still getting TPN. No other new complaints. Going to give a bolus of normal saline 500 mL and decrease his normal saline fusion up to 1 25 mL/h Stool studies and C. diff is negative. Stool culture and WBC still pending. Liver ultrasound was of poor quality. Patient informed that he needs to follow up with Jamarc[facility] Iniguez Crohn's disease specialist Dr. Major upon discharge and he agrees 09/14/2022 Patient clinically looks the same still has the same abdominal pain and tenderness which he states this is chronic, no vomiting, he is tolerating his diet, he still has watery stool and his back but is not sure how much is been emptied here compared to home. Today I discussed the case with GI team who cleared the patient for discharge. However Blood pressure was slightly of the low side several give him extra fluid 1.5 L of normal saline boluses on the top of infusion at 1 25 mL/h on the top of his TPN. Blood pressure started to improve by the end of the day.Patient still needs IV fluid hydration and monitoring of his blood pressure sore is not ready for discharge. CBC and BMP and a positive reviewed, mildly borderline low electrolytes lactic potassium sodium phosphorus and magnesium was replaced. Also patient with no fever or leukocytosis but ohcalcitonin is elevated at 0.47, infection and colitis is suspected therefore patient was started on Augmentin. And he tolerates that well. Labs reviewed Patient currently getting TPN, NS@ 125, Augmentin, Lovenox 80 mg twice a day Patient overall improvement and was stabilized blood pressure may be considered for discharge There is found to be GI coverage over the common weekend 09/15/2022 patient was kept yesterday because blood pressure was on the low side, he received a bolus of normal saline and today blood pressure is improving with systolic more than 100 and sometimes up to 130s. However patient was getting normal saline at 1 25 mL/h. Don't allow it to 75 mL per hour. Abdomen without patient reports no change in his clinical situation, I still have this chronic abdominal pain, no vomiting. This still distended TPN. And ileostomy bag is draining semisolid stool. Patient was started on Augmentin yesterday. Prior to discuss troponin is willie vated. No fever or leukocytosis. Speck and discharged in 24-48 hours 09/16/2022 Patient presents with diarrhea through his ileostomy bag while he is on TPN as an outpatient with oral feeding as well. Since admission his blood pressure was on the soft side, he has chronic abdominal pain and tenderness but he has watery bowel movement. Which was worse than before. C. diff on examination was negative. Inflammatory markers of ESR and CRP were mildly elevated patient evaluated by GI service and cleared for discharge and follow-up with a specialist as an outpatient. However The patient because blood pressure was on the low side and we have treated him with normal saline 75 mL/h. Yesterday overnight he developed a fever of 101.1. Patient was already on Augmentin for the last 48 hours with poorcalcitonin elevated at 0.47. So we stopped his Augmentin and start Zosyn and send blood culture, was sent stool studies and repeat C. diff. Also we consulted infectious disease for further recommendation. We are replacing electrolytes potassium and magnesium as per protocol and follow closely. Discussed with the shift manager nurse and the daytime she shift nurse 09/17/2022 Patient is improving slowly and gradually. He is still have diarrhea. He has chronic abdominal pain. TPN is running. He is hemodynamically stable, blood pressure on the low normal side. Vitals stable, potassium and magnesium today are within the reference range. Sodium is improved. procalcitonin is improving 0.47 down to 0.31. Infectious disease consult is appreciated. Patient to continue with Zosyn for Objective - Vital Signs Vital signs: Vital Signs Temp 99.0 F 09/17/22 08:00 Pulse 88 09/17/22 08:00 Resp 16 09/17/22 08:00 BP 96/56 09/17/22 08:00 Pulse Ox 94 L 09/17/22 09:54 FiO2 21 09/11/22 09:30 Intake & Output 09/16/22 09/17/22 09/17/22 18:59 06:59 18:59 Intake Total 1300 Output Total 2525 1800 Balance -1225 -1800 Intake: Intake, IV Titration 1300 Amount Magnesium Sulfate-D5w Pmx 200 1 gm In Dextrose/Water 1 100ml.bag @ 100 mls/hr IVPB Q1H [facility] Rx#: [id number] Magnesium Sulfate-D5w Pmx 200 1 gm In Dextrose/Water 1 100ml.bag @ 100 mls/hr IVPB Q1H [facility] Rx#: [id number] Piperacillin-Tazobactam 3 200 .375 gm In Sodium Chloride 0.9% 100 ml @ 25 mls/hr IVPB Q8H [facility] Rx#: [id number] Potassium Chloride 20 meq 200 In Water For Injection 1 100ml.bag @ 50 mls/hr IVPB Q2H [facility] Rx#: [id number] Sodium Phosphate 30 mmol 500 In Dextrose 5% in Water 250 ml @ 65 mls/hr IVPB ONCE ONE Rx#:[id number] Output: Urine 1000 600 Stool 1525 1200 Other: Voiding Method External Catheter External Catheter # Voids 1 # Bowel Movements 1 - Exam -GENERAL: The patient is alert and oriented x3, not in any acute distress. Well developed, well nourished. Patient is lethargic HEENT: Pupils are round and equally reacting to light. EOMI. No scleral icterus. No conjunctival pallor. Normocephalic, atraumatic. No pharyngeal erythema. No thyromegaly. CARDIOVASCULAR: S1 and S2 present. No murmurs, rubs, or gallops. -PULMONARY: Chest is clear to auscultation, no wheezing , no crackles. Chest Central line -ABDOMEN: Soft, nontender, normoactive bowel sounds. No palpable organomegaly. Right lower quadrant large ileostomy bag, with surrounding abdominal wall scarring. With surrounding tenderness, no rebound tenderness or guarding MUSCULOSKELETAL: No joint swelling or deformity. -EXTREMITIES: No cyanosis, clubbing, or pedal edema. Right BKA NEUROLOGICAL: Gross neurological examination did not reveal any focal deficits. SKIN: No rashes. no petechiae. - Labs CBC & Chem 7: 09/17/22 05:45 09/17/22 05:45 Labs: Abnormal Lab Results - Last 24 Hours (Table) 09/17/22 09/17/22 09/17/22 Range/Units 05:45 05:45 05:45 RBC (4.30-5.90) m/uL Hgb (13.0-17.5) gm/dL Hct (39.0-53.0) % Sodium 134 L (137-145) mmol/L Calcium 7.8 L (8.4-10.2) mg/dL ALT 55 H 56 H (4-49) U/L Total Protein 5.4 L 5.4 L (6.3-8.2) g/dL Albumin 2.2 L 2.2 L (3.5-5.0) g/dL Procalcitonin 0.31 H (0.02-0.09) ng/mL 09/17/22 Range/Units 05:45 RBC 3.36 L (4.30-5.90) m/uL Hgb 10.6 L D (13.0-17.5) gm/dL Hct 32.2 L (39.0-53.0) % Sodium (137-145) mmol/L Calcium (8.4-10.2) mg/dL ALT (4-49) U/L Total Protein (6.3-8.2) g/dL Albumin (3.5-5.0) g/dL Procalcitonin (0.02-0.09) ng/mL Assessment and Plan Assessment: Possible infectious gastroenteritis High right lower quadrant ostomy output and review of Crohn's disease Dehydration secondary to above Hypovolemic hyponatremia Transaminitis with hyperbilirubinemia Generalized weakness History of CVA history of deep venous thrombosis on Lovenox at home history of Crohn's disease status post colectomy and colostomy bag placement History of right below knee amputation Chronically bedbound right BKA Plan: Start Zosyn and follow-up blood culture Continue with normal saline to 100 mL/h Infectious disease consult continue with TPN Follow-up stool studies Gastrointestinal service consult regarding evaluated the patient, GI team cleared the patient for discharge. However we Because He Needs More Hydration Labs and medication were reviewed.. Continue same treatment. Continue with symptomatic treatment. Resume home medication. Monitor labs and vitals. DVT and GI prophylaxis. Further recommendations as per clinical course of the patient DVT prophylaxis: Subcutaneous Lovenox GI Prophylaxis: ppi Prognosis is guarded
[2022-09-18] MEDS: MORPHINE SULFATE 2 MG/ML SYRINGE IVP PRN ×5 (00:57→20:33)
[2022-09-18] MEDS: PIPERACILLIN-TAZOBACTAM 3.375 GM in SODIUM CHLORIDE 0.9% 100 ML IVPB SCH ×3 (05:31→20:29)
[2022-09-18] MEDS: SODIUM CHLORIDE 0.9% 1,000 ML IV SCH ×2 (05:32→15:48)
[2022-09-18 07:06] LABS: Ionized Calcium 5.1 mg/dL (4.5-5.3)
[2022-09-18 07:14] LABS: ALT 52 U/L (4-49); AST 41 U/L (17-59); African American GFR (CKD) >90 (>60 ml/min/1.73 sqM); Albumin 2.2 g/dL (3.5-5.0); Albumin/Globulin Ratio 0.7; Alkaline Phosphatase 110 U/L (38-126); Anion Gap 2 mmol/L; Blood Urea Nitrogen 16 mg/dL (9-20); Calcium 7.8 mg/dL (8.4-10.2); Carbon Dioxide 29 mmol/L (22-30); Chloride 102 mmol/L (98-107); Globulin 3.2 g/dL; Glucose 79 mg/dL (74-99); Magnesium 1.8 mg/dL (1.6-2.3); Non-African American GFR(CKD) >90 (>60 ml/min/1.73 sqM); Potassium 3.8 mmol/L (3.5-5.1); Sodium 133 mmol/L (137-145); Total Bilirubin 1.1 mg/dL (0.2-1.3); Total Protein 5.4 g/dL (6.3-8.2)
[2022-09-18] MEDS: PANTOPRAZOLE 40 MG TABLET PO SCH (08:18)
[2022-09-18] MEDS: DIPHENOX-ATROP 2.5-0.025 MG 1 EACH TAB PO SCH ×2 (08:18→11:42)
[2022-09-18] MEDS: ENOXAPARIN 80 MG/0.8 ML SYRINGE SQ SCH ×2 (08:19→20:30)
[2022-09-18] MEDS ORDERED: MVI, ADULT NO.4 WITH VIT K 10 ML, TRACE (CONC-1ML/DOSE) 1 ML, SODIUM ACETATE 50 MEQ, PO... IV SCH ×7 (09:00)
[2022-09-18] MEDS ORDERED: POTASSIUM CHLORIDE 20 MEQ in WATER FOR INJECTION 1 100ML.BAG IVPB ONE (10:00)
[2022-09-18] MEDS ORDERED: MAGNESIUM SULFATE-D5W PMX 1 GM in DEXTROSE/WATER 1 100ML.BAG IVPB ONE (10:00)
--- NOTE | 2022-09-18 14:36 | P.PN ---
Subjective Progress Note Date: 09/17/22 Principal diagnosis: Fever Patient is a 47-year-old male who is in the hospital for almost a week presented on 09/10/2022 for evaluation of weakness in this patient who did have a history of prior CVA DVTs or anticoagulation and did have a history of Crohn's disease status post colectomy and ileostomy placement patient also have a PICC line to the left subclavian area placed on March 18, 2022 as the patient required TPN at home patient presenting symptom was weakness and significant output in his ileostomy bag, patient CT on admission 09/10/2022 was negative, patient was afebrile however he did spike a fever on 09/15/2022. On today's evaluation that is 09/17/2022 and the patient did have a low-grade fever of 99.8 around midnight the patient is afebrile since then, the patient is breathing comfortably on room air denies any chest pain or shortness breath occa sional cough having abdominal pain no worsening and continued to have a significant output from his ileostomy Objective - Vital Signs Vital signs: Vital Signs Temp 99.0 F 09/17/22 08:00 Pulse 88 09/17/22 08:00 Resp 16 09/17/22 08:00 BP 96/56 09/17/22 08:00 Pulse Ox 94 L 09/17/22 09:54 FiO2 21 09/11/22 09:30 Intake & Output 09/16/22 09/17/22 09/17/22 18:59 06:59 18:59 Intake Total 1300 Output Total 2525 1800 Balance -1225 -1800 Intake: Intake, IV Titration 1300 Amount Magnesium Sulfate-D5w Pmx 200 1 gm In Dextrose/Water 1 100ml.bag @ 100 mls/hr IVPB Q1H [facility] Rx#: [id number] Magnesium Sulfate-D5w Pmx 200 1 gm In Dextrose/Water 1 100ml.bag @ 100 mls/hr IVPB Q1H [facility] Rx#: [id number] Piperacillin-Tazobactam 3 200 .375 gm In Sodium Chloride 0.9% 100 ml @ 25 mls/hr IVPB Q8H [facility] Rx#: [id number] Potassium Chloride 20 meq 200 In Water For Injection 1 100ml.bag @ 50 mls/hr IVPB Q2H [facility] Rx#: [id number] Sodium Phosphate 30 mmol 500 In Dextrose 5% in Water 250 ml @ 65 mls/hr IVPB ONCE ONE Rx#:[id number] Output: Urine 1000 600 Stool 1525 1200 Other: Voiding Method External Catheter External Catheter # Voids 1 # Bowel Movements 1 - Exam GENERAL DESCRIPTION: Middle-age male lying in bed in no distress RESPIRATORY SYSTEM: Unlabored breathing , decreased breath sounds at bases HEART: S1 S2 regular rate and rhythm , ABDOMEN: Soft , no tenderness EXTREMITIES: No edema feet - Labs CBC & Chem 7: 09/17/22 05:45 09/18/22 06:35 Labs: Abnormal Lab Results - Last 24 Hours (Table) 09/17/22 09/17/22 09/17/22 Range/Units 05:45 05:45 05:45 RBC (4.30-5.90) m/uL Hgb (13.0-17.5) gm/dL Hct (39.0-53.0) % Sodium 134 L (137-145) mmol/L Calcium 7.8 L (8.4-10.2) mg/dL ALT 55 H 56 H (4-49) U/L Total Protein 5.4 L 5.4 L (6.3-8.2) g/dL Albumin 2.2 L 2.2 L (3.5-5.0) g/dL Procalcitonin 0.31 H (0.02-0.09) ng/mL 09/17/22 Range/Units 05:45 RBC 3.36 L (4.30-5.90) m/uL Hgb 10.6 L D (13.0-17.5) gm/dL Hct 32.2 L (39.0-53.0) % Sodium (137-145) mmol/L Calcium (8.4-10.2) mg/dL ALT (4-49) U/L Total Protein (6.3-8.2) g/dL Albumin (3.5-5.0) g/dL Procalcitonin (0.02-0.09) ng/mL Assessment and Plan (1) Fever Current Visit: Yes Status: Acute Code(s): R50.9 - FEVER, UNSPECIFIED SNOMED Code(s): 888399184 Plan: 1patient who with fever in this patient the hospital for about a week and did have multiple comorbidities including Crohn's disease status post subtotal colec roshan and ileostomy patient also have a PICC line for more than 6 months now and uses TPN patient did have a CT abdominal pelvis on admission did not show any abscess chest x-ray was negative questionably PICC line infection not entirely excluded 2-blood cultures has been obtained from the PICC line as well as peripheral culture, and those are currently pending, patient did have a negative chest x- ray, patient's CRP was 1.6 and Procalcitonin 0.31 3- patient to continue with empiric Zosyn while waiting for the cultures to finalize Time with Patient: Less than 30
[2022-09-18] MEDS ORDERED: IOPAMIDOL CONTRAST (ORAL USE) VIAL PO PRN (14:38)
--- NOTE | 2022-09-18 14:38 | P.PN ---
Subjective Progress Note Date: 09/18/22 Principal diagnosis: Fever Patient is a 47-year-old male who is in the hospital for almost a week presented on 09/10/2022 for evaluation of weakness in this patient who did have a history of prior CVA DVTs or anticoagulation and did have a history of Crohn's disease status post colectomy and ileostomy placement patient also have a PICC line to the left subclavian area placed on March 18, 2022 as the patient required TPN at home patient presenting symptom was weakness and significant output in his ileostomy bag, patient CT on admission 09/10/2022 was negative, patient was afebrile however he did spike a fever on 09/15/2022. On today's evaluation that is 09/18/2022 , the patient is afebrile for more than 24 hours now, the patient is breathing comfortably on room air, the patient denies any chest pain or shortness breath occasional cough having abdominal pain no worsening and continued to have a significant output from his ileostomy Objective - Vital Signs Vital signs: Vital Signs Temp 98.0 F 09/18/22 07:01 Pulse 84 09/18/22 07:01 Resp 17 09/18/22 07:01 BP 101/63 09/18/22 07:01 Pulse Ox 94 L 09/18/22 09:44 FiO2 21 09/11/22 09:30 Intake & Output 09/17/22 09/18/22 09/18/22 18:59 06:59 18:59 Intake Total 200 Output Total 2100 1525 650 Balance -1064 -152 -450 Intake: IV 200 Magnesium Sulfate-D5w Pmx 100 1 gm In Dextrose/Water 1 100ml.bag @ 100 mls/hr IVPB ONCE ONE Rx#: [id number] Potassium Chloride 20 meq 100 In Water For Injection 1 100ml.bag @ 50 mls/hr IVPB ONCE ONE Rx#: [id number] Output: Urine 1100 375 Stool 1000 1150 650 Other: Voiding Method External Catheter - Exam GENERAL DESCRIPTION: Middle-age male lying in bed in no distress RESPIRATORY SYSTEM: Unlabored breathing , decreased breath sounds at bases HEART: S1 S2 regular rate and rhythm , ABDOMEN: Soft , no tenderness EXTREMITIES: No edema feet - Labs CBC & Chem 7: 09/17/22 05:45 09/18/22 06:35 Labs: Abnormal Lab Results - Last 24 Hours (Table) 09/17/22 09/18/22 Range/Units 14:34 06:35 Sodium 133 L (137-145) mmol/L Calcium 7.8 L (8.4-10.2) mg/dL Phosphorus 2.2 L (2.5-4.5) mg/dL ALT 52 H (4-49) U/L Total Protein 5.4 L (6.3-8.2) g/dL Albumin 2.2 L (3.5-5.0) g/dL Microbiology - Last 24 Hours (Table) 09/15/22 23:43 Stool Culture - Preliminary Stool 09/16/22 02:24 Blood Culture - Preliminary Blood Assessment and Plan (1) Fever Current Visit: Yes Status: Acute Code(s): R50.9 - FEVER, UNSPECIFIED SNOMED Code(s): 338689729 Plan: 1patient who with fever in this patient the hospital for about a week and did have multiple comorbidities including Crohn's disease status post subtotal colectomy and ileostomy patient also have a PICC line for more than 6 months now and uses TPN patient did have a CT abdominal pelvis on admission did not show any abscess chest x-ray was negative questionably PICC line infection, however the patient culture has been negative so far that will make it less likely patient's chest x-ray was negative for any pneumonia and the patient did have a CRP was 1.6 and Procalcitonin 0.31 3-we will continue with empiric Zosyn to the patient fever has responded however we'll check a CT abdominal pelvis to make sure no evidence of any abscess or colitis, question will be added to decrease his ostomy output Time with Patient: Less than 30
[2022-09-18] MEDS: CHOLESTYRAMINE (WITH SUGAR) 4 GM PACKET PO SCH ×2 (15:45→18:05)
[2022-09-18] MEDS: [UNRECOGNIZED DRUG - OTHER] IV SCH ×6 (18:52)
[2022-09-18] MEDS: POTASSIUM ACETATE IV SCH ×6 (18:52)
[2022-09-18] MEDS: SODIUM ACETATE IV SCH ×6 (18:52)
[2022-09-18] MEDS: SODIUM PHOSPHATE IV SCH ×6 (18:52)
--- NOTE | 2022-09-19 00:09 | CT ---
EXAMINATION TYPE: CT abdomen pelvis w con DATE OF EXAM: 09/18/2022 COMPARISON: 09/10/2022 INDICATION: Fever/abscess. DLP: 2595.4 mGycm, Automated exposure control for dose reduction was used. CONTRAST: 100 ml mL of Isovue 300. Study performed without Oral Contrast TECHNIQUE: Axial images were obtained from above the diaphragm to the pubic rami in the axial plane a t 5 mm thick sections. Reconstructed images are reviewed on the computer in the coronal plane. FINDINGS: Limited CT sections are obtained the lung bases. Small bilateral pleural effusions are present. Some compressive atelectasis or pneumonia as the posterior right lung base.. CT ABDOMEN: Anterior abdominal wall hernia appears to be present. This contains fat. Subcutaneous abs cess in degree is likely near the insertion site of the ileostomy bowel catheter. This measures appro ximately 1.8 cm. This is smaller than comparison. The ostomy catheter intraperitoneal portion appears normal. There is some additional degree within the anterior abdominal wall also continues tissues me dial to the fat-containing hernia. Small amount of air is present. Abscess and open wound along the a nterior wall is likely present. This measures approximately 1.9 x 7.2 cm. This is smaller than compar gina. Clinical correlation recommended. Liver: Normal Spleen: Prominent Pancreas: Normal Adrenal glands: The adrenal glands are normal. Gallbladder: Surgically absent Kidneys: No masses are evident. No hydronephrosis is present. No cysts are present. No renal stone s are evident. Aorta: Normal Inferior vena cava: Normal. CT PELVIS: Loops of bowel within the abdomen and pelvis are normal. Studies without oral contrast limiting b owel evaluation. No suspicious dilated loops of bowel are evident. Appendix: Not visualized. Urinary bladder: Normal. Genitourinary structures: Prostate is slightly prominent. Osseous structures: No suspicious lytic or sclerotic lesions. IMPRESSIONS: 1. There appears to be an open wound along the midabdomen. This contains debris and air suspicious f or underlying abscess. Lateral to this collection is a fat-containing hernia. This hernia is just med ial to the insertion site of the ileostomy tube. Surrounding debris and air around the ileostomy tube within the subcutaneous tissues is suggestive for abscess at that level. However the intraperitoneal portion of the drainage tube appears without suspicious adjacent collection. Overall, these findings appear to be improving from comparison.
[2022-09-19] MEDS: MORPHINE SULFATE 2 MG/ML SYRINGE IVP PRN ×5 (00:43→22:05)
[2022-09-19] MEDS: PIPERACILLIN-TAZOBACTAM 3.375 GM in SODIUM CHLORIDE 0.9% 100 ML IVPB SCH ×3 (04:56→21:24)
[2022-09-19] MEDS: SODIUM CHLORIDE 0.9% 1,000 ML IV SCH ×3 (07:34→21:24)
[2022-09-19 07:45] LABS: ALT 50 U/L (4-49); AST 43 U/L (17-59); African American GFR (CKD) >90 (>60 ml/min/1.73 sqM); Albumin 2.3 g/dL (3.5-5.0); Albumin/Globulin Ratio 0.7; Alkaline Phosphatase 117 U/L (38-126); Anion Gap 4 mmol/L; Blood Urea Nitrogen 16 mg/dL (9-20); Calcium 8.2 mg/dL (8.4-10.2); Carbon Dioxide 29 mmol/L (22-30); Chloride 101 mmol/L (98-107); Globulin 3.3 g/dL; Glucose 76 mg/dL (74-99); Magnesium 1.9 mg/dL (1.6-2.3); Non-African American GFR(CKD) >90 (>60 ml/min/1.73 sqM); Potassium 4.2 mmol/L (3.5-5.1); Sodium 134 mmol/L (137-145); Total Protein 5.6 g/dL (6.3-8.2)
--- NOTE | 2022-09-19 08:30 | P.PN ---
Subjective This Is a pleasant 47 years old male with past medical history of CVA/TIA, Deep Vein Thrombosis , Progressing left upper thigh pain and swelling and left leg weakness., Crohns. right leg below knee amputation Patient brought into ER via EMS with complaints of worsening weakness. Per EMS patients family, he is not acting normal and is less responsive than what he normally is. When I saw the patient he was awake and alert and oriented, little lethargic and looks tired. Patient says that the [facility] and he came in to the hospital is that he has been feeling weak for the last 2 days. Patient is bedbound mostly wheelchair, he has history of right BKA, also he has history of right lower quadrant ileostomy and he has central line in the left upper chest for TPN since March. Patient says that he has chronic abdominal pain in the middle of the abdomen and around his ileostomy bag about 5/10 felt like burning, states that it was 7/10 before which is a slightly worsened than his baseline. He is not in distress due to pain. He says that usually he has 2 bowel movements through his ileostomy back normally however recently he is been having 3-4 bowel movements and more loose however when I examined him he has watery bowel movements in his ileostomy bag. Also patient is on Lovenox 80 mg twice daily at home for he has history of DVT. He denies any urinary complaints. He denies chest pain dyspnea or coughing. No headache dizziness weakness or numbness. No smoking or alcohol. He follow-up with a surgeon Dr. Zee at [facility] and he supposed to refer him to GI specialist at [facility]. His PCP is Dr. Ivey and [facility] Patient is mildly hypotensive, systolic blood pressure usually 100-120, currently in the 90s to 100 other Vital signs stable CBC, INR is unremarkable Sodium is 127. Creatinine 1.18. Magnesium 3.9. Total bilirubin is 2.3, AST 96 which is elevated and ALT 176. Influenza, casillas and RSV viruses are undetected CT of the brain: No acute process CT of the abdomen and pelvis showing postoperative changes with no acute changes. He received 5 L of normal saline and admitted with GI consult for increased right lower quadrant ostomy output, and review of his history of Crohn's disease. C. diff is negative Influenza, [employer], coronavirus are undetected 09/12/2022 Today patient awake alert in distress. Has watery diarrhea per his ileostomy bag , however patient feels hungry and is able to drink. He needs assistance from staff to help.. Other than that he is getting TPN from home discontinued. The patient consult on the case with adjust electrolytes. Vitals and labs reviewed and developed shortness replace per protocol. Liver enzymes slightly worsened with keep monitoring. Mild hypernatremia and stable. The pressure sore on the low side, therefore we are going to hold his metopr olol. He is on Lovenox from home for his history of DVT Crohn disease exacerbation is suspected however is dressed and CRP already mildly elevated, patient currently THE TREATMENT PROTOCOLS, GI SURFACE OF THE CASE 09/13/2022 Patient still have significant for coronary diarrhea through his ileostomy bag. More than 3 L of output. Blood pressure is on the low side but patient is bedbound and he is as symptomatic. Patient states that his abdominal pain is chronic with no recent changes, he has good appetite and tolerates diet somehow and he vomited once earlier. He is still getting TPN. No other new complaints. Going to give a bolus of normal saline 500 mL and decrease his normal saline fusion up to 1 25 mL/h Stool studies and C. diff is negative. Stool culture and WBC still pending. Liver ultrasound was of poor quality. Patient informed that he needs to follow up with Jamarcus Iniguez Crohn's disease specialist Dr. Major upon discharge and he agrees 09/14/2022 Patient clinically looks the same still has the same abdominal pain and tenderness which he states this is chronic, no vomiting, he is tolerating his diet, he still has watery stool and his back but is not sure how much is been emptied here compared to home. Today I discussed the case with GI team who cleared the patient for discharge. However Blood pressure was slightly of the low side several give him extra fluid 1.5 L of normal saline boluses on the top of infusion at 1 25 mL/h on the top of his TPN. Blood pressure started to improve by the end of the day.Patient still needs IV fluid hydration and monitoring of his blood pressure sore is not ready for discharge. CBC and BMP and a positive reviewed, mildly borderline low electrolytes lactic potassium sodium phosphorus and magnesium was replaced. Also patient with no fever or leukocytosis but ohcalcitonin is elevated at 0.47, infection and colitis is suspected therefore patient was started on Augmentin. And he tolerates that well. Labs reviewed Patient currently getting TPN, NS@ 125, Augmentin, Lovenox 80 mg twice a day Patient overall improvement and was stabilized blood pressure may be considered for discharge There is found to be GI coverage over the common weekend 09/15/2022 patient was kept yesterday because blood pressure was on the low side, he received a bolus of normal saline and today blood pressure is improving with systolic more than 100 and sometimes up to 130s. However patient was getting normal saline at 1 25 mL/h. Don't allow it to 75 mL per hour. Abdomen without patient reports no change in his clinical situation, I still have this chronic abdominal pain, no vomiting. This still distended TPN. And ileostomy bag is draining semisolid stool. Patient was started on Augmentin yesterday. Prior to discuss troponin is willie vated. No fever or leukocytosis. Speck and discharged in 24-48 hours 09/16/2022 Patient presents with diarrhea through his ileostomy bag while he is on TPN as an outpatient with oral feeding as well. Since admission his blood pressure was on the soft side, he has chronic abdominal pain and tenderness but he has watery bowel movement. Which was worse than before. C. diff on examination was negative. Inflammatory markers of ESR and CRP were mildly elevated patient evaluated by GI service and cleared for discharge and follow-up with a specialist as an outpatient. However The patient because blood pressure was on the low side and we have treated him with normal saline 75 mL/h. Yesterday overnight he developed a fever of 101.1. Patient was already on Augmentin for the last 48 hours with poorcalcitonin elevated at 0.47. So we stopped his Augmentin and start Zosyn and send blood culture, was sent stool studies and repeat C. diff. Also we consulted infectious disease for further recommendation. We are replacing electrolytes potassium and magnesium as per protocol and follow closely. Discussed with the medical assembler nurse and the daytime she shift nurse 09/17/2022 Patient is improving slowly and gradually. He is still have diarrhea. He has chronic abdominal pain. TPN is running. He is hemodynamically stable, blood pressure on the low normal side. Vitals stable, potassium and magnesium today are within the reference range. Sodium is improved. procalcitonin is improving 0.47 down to 0.31. Infectious disease consult is appreciated. Patient to continue with Zosyn f 09/18/2022 Patient is awake alert, clinically looks the same, made a problem this chronic abdominal pain and tenderness and diarrhea. He remains on TPN from home with pleasure eating. He also is on normal saline and his blood pressure looks holding and improving slowly He remains on Zosyn will resume home dose of Lovenox 80 mg twice daily for history of DVT ID team of the case, repeat computed tomography scan of the abdomen is ordered and if shows abscess will consider surgery consult Objective - Vital Signs Vital signs: Vital Signs Temp 98.0 F 09/18/22 07:01 Pulse 84 09/18/22 07:01 Resp 17 09/18/22 07:01 BP 101/63 09/18/22 07:01 Pulse Ox 94 L 09/18/22 09:44 FiO2 21 09/11/22 09:30 Intake & Output 09/17/22 09/18/22 09/18/22 18:59 06:59 18:59 Intake Total 200 Output Total 2100 1525 650 Balance -2100 -1525 -450 Intake: IV 200 Magnesium Sulfate-D5w Pmx 100 1 gm In Dextrose/Water 1 100ml.bag @ 100 mls/hr IVPB ONCE ONE Rx#: [id number] Potassium Chloride 20 meq 100 In Water For Injection 1 100ml.bag @ 50 mls/hr IVPB ONCE ONE Rx#: [id number] Output: Urine 1100 375 Stool 1000 1150 650 Other: Voiding Method External Catheter - Exam -GENERAL: The patient is alert and oriented x3, not in any acute distress. Well developed, well nourished. Patient is lethargic HEENT: Pupils are round and equally reacting to light. EOMI. No scleral icterus. No conjunctival pallor. Normocephalic, atraumatic. No pharyngeal erythema. No thyromegaly. CARDIOVASCULAR: S1 and S2 present. No murmurs, rubs, or gallops. -PULMONARY: Chest is clear to auscultation, no wheezing , no crackles. Chest Central line -ABDOMEN: Soft, nontender, normoactive bowel sounds. No palpable organomegaly. Right lower quadrant large ileostomy bag, with surrounding abdominal wall scarring. With surrounding tenderness, no rebound tenderness or guarding MUSCULOSKELETAL: No joint swelling or deformity. -EXTREMITIES: No cyanosis, clubbing, or pedal edema. Right BKA NEUROLOGICAL: Gross neurological examination did not reveal any focal deficits. SKIN: No rashes. no petechiae. - Labs CBC & Chem 7: 09/17/22 05:45 09/19/22 07:05 Labs: Abnormal Lab Results - Last 24 Hours (Table) 09/17/22 09/18/22 Range/Units 14:34 06:35 Sodium 133 L (137-145) mmol/L Calcium 7.8 L (8.4-10.2) mg/dL Phosphorus 2.2 L (2.5-4.5) mg/dL ALT 52 H (4-49) U/L Total Protein 5.4 L (6.3-8.2) g/dL Albumin 2.2 L (3.5-5.0) g/dL Microbiology - Last 24 Hours (Table) 09/16/22 18:25 Blood Culture - Preliminary Blood 09/16/22 18:25 Blood Culture - Preliminary Blood 09/16/22 02:24 Blood Culture - Preliminary Blood 09/15/22 23:43 Stool Culture - Preliminary Stool Assessment and Plan Assessment: Possible infectious gastroenteritis High right lower quadrant ostomy output and review of Crohn's disease Dehydration secondary to above Hypovolemic hyponatremia Transaminitis with hyperbilirubinemia Generalized weakness History of CVA history of deep venous thrombosis on Lovenox at home history of Crohn's disease status post colectomy and colostomy bag placement History of right below knee amputation Chronically bedbound right BKA Plan: Start Zosyn and follow-up blood culture Continue with normal saline Infectious disease consult continue with TPN Follow-up stool studies Repeat CT of the abdomen and pelvis Gastrointestinal service consult regarding evaluated the patient, GI team cleared the patient for discharge. However we Because He Needs More Hydration Labs and medication were reviewed.. Continue same treatment. Continue with symptomatic treatment. Resume home medication. Monitor labs and vitals. DVT and GI prophylaxis. Further recommendations as per clinical course of the patient DVT prophylaxis: Subcutaneous Lovenox GI Prophylaxis: ppi Prognosis is guarded
[2022-09-19] MEDS ORDERED: MAGNESIUM SULFATE-D5W PMX 1 GM in DEXTROSE/WATER 1 100ML.BAG IVPB ONE (09:00)
[2022-09-19] MEDS: MVI, ADULT NO.4 WITH VIT K 10 ML, TRACE (CONC-1ML/DOSE) 1 ML, SODIUM ACETATE 30 MEQ, PO... IV SCH ×16 (09:13→10:13)
[2022-09-19] MEDS: FAT EMULSION 20% 250 ML in EMPTY BAG 1 BAG IV SCH (09:14)
[2022-09-19] MEDS: ENOXAPARIN 80 MG/0.8 ML SYRINGE SQ SCH ×2 (09:15→21:24)
[2022-09-19] MEDS: CHOLESTYRAMINE (WITH SUGAR) 4 GM PACKET PO SCH ×3 (09:16→17:56)
[2022-09-19] MEDS: PANTOPRAZOLE 40 MG TABLET PO SCH (09:18)
[2022-09-19] MEDS ORDERED: DEXTROSE 50% SYRINGE 50 ML IVP PRN ×2 (12:01)
[2022-09-19] MEDS: INSULIN ASPART (NovoLOG) 100 UNIT/ML VIAL SQ SCH ×3 (12:41→21:25)
[2022-09-19 12:42] LABS: Glucose,Whole Blood 124 mg/dL (70-110)
--- NOTE | 2022-09-19 16:44 | P.PN ---
Subjective Progress Note Date: 09/19/22 Principal diagnosis: Fever Patient is a 47-year-old male who is in the hospital for almost a week presented on 09/10/2022 for evaluation of weakness in this patient who did have a history of prior CVA DVTs or anticoagulation and did have a history of Crohn's disease status post colectomy and ileostomy placement patient also have a PICC line to the left subclavian area placed on March 18, 2022 as the patient required TPN at home patient presenting symptom was weakness and significant output in his ileostomy bag, patient CT on admission 09/10/2022 was negative, patient was afebrile however he did spike a fever on 09/15/2022. On today's evaluation that is 09/19/2022 , the patient remains to be afebrile, the patient is breathing comfortably on room air, the patient denies any chest pain or shortness breath occasional cough having abdominal pain no worsening and continued to have a significant output from his ileostomy Objective - Vital Signs Vital signs: Vital Signs Temp 98.3 F 09/19/22 08:26 Pulse 72 09/19/22 08:26 Resp 16 09/19/22 08:26 BP 103/67 09/19/22 08:26 Pulse Ox 98 09/19/22 08:26 FiO2 21 09/11/22 09:30 Intake & Output 09/18/22 09/19/22 09/19/22 18:59 06:59 18:59 Intake Total 200 250 Output Total 2250 1700 350 Balance -2049 -1699 -100 Intake: IV 200 250 Invasive Line 1 50 Magnesium Sulfate-D5w Pmx 100 1 gm In Dextrose/Water 1 100ml.bag @ 100 mls/hr IVPB ONCE ONE Rx#: [id number] Potassium Chloride 20 meq 100 In Water For Injection 1 100ml.bag @ 50 mls/hr IVPB ONCE ONE Rx#: [id number] Sodium Acetate 30 meq 100 Potassium Acetate 40 meq Sodium Phosphate 12 mmol Sodium Chloride 4Meq/ml Vial 20 meq Magnesium Sulfate gm 1 gm In Amino Acids 5 %/Dextrose 20 % 1 ,000 ml @ 106 mls/hr IV DAILY@1900 [facility] Rx#: [id number] Sodium Chloride 0.9% 1, 100 000 ml @ 100 mls/hr IV . Q10H [facility] Rx#:[id number] Oral 0 Output: Urine 900 800 350 Stool 1350 900 Other: Voiding Method External Catheter External Catheter External Catheter - Exam GENERAL DESCRIPTION: Middle-age male lying in bed in no distress RESPIRATORY SYSTEM: Unlabored breathing , decreased breath sounds at bases HEART: S1 S2 regular rate and rhythm , ABDOMEN: Soft , no tenderness EXTREMITIES: No edema feet - Labs CBC & Chem 7: 09/17/22 05:45 09/19/22 07:05 Labs: Abnormal Lab Results - Last 24 Hours (Table) 09/19/22 Range/Units 07:05 Sodium 134 L (137-145) mmol/L Calcium 8.2 L (8.4-10.2) mg/dL ALT 50 H (4-49) U/L Total Protein 5.6 L (6.3-8.2) g/dL Albumin 2.3 L (3.5-5.0) g/dL Microbiology - Last 24 Hours (Table) 09/15/22 23:43 Stool Culture - Final Stool 09/16/22 18:25 Blood Culture - Preliminary Blood 09/16/22 18:25 Blood Culture - Preliminary Blood 09/16/22 02:24 Blood Culture - Preliminary Blood Assessment and Plan (1) Fever Current Visit: Yes Status: Acute Code(s): R50.9 - FEVER, UNSPECIFIED SNOMED Code(s): 466892246 Plan: 1patient who with fever in this patient the hospital for about a week and did have multiple comorbidities including Crohn's disease status post subtotal colectomy and ileostomy patient also have a PICC line for more than 6 months now and uses TPN patient did have a CT abdominal pelvis on admission did not show any abscess chest x-ray was negative questionably PICC line infection, however the patient culture has been negative so far that will make it less likely patient's chest x-ray was negative for any pneumonia and the patient did have a CRP was 1.6 and Procalcitonin 0.31 3-patient CT abdominal pelvis which was done with IV contrast only as the patient refuses oral contrast concerning for intra-abdominal abdominal wall abscess surgery will be consulted and the patient to continue with the Zosyn Time with Patient: Less than 30
[2022-09-19 17:31] LABS: Glucose,Whole Blood 107 mg/dL (70-110)
--- NOTE | 2022-09-19 20:18 | PN ---
PROGRESS NOTE DATE OF SERVICE: 09/19/2022 SUBJECTIVE: This is a 47-year-old gentleman, admitted with abdominal wall wound based on TPN. The patient is on broad spectrum IV antibiotics. No chest pain. No palpitations. The patient is refusing some medications. OBJECTIVE: VITAL SIGNS: Pulse 72, blood pressure , respirations 16. CHEST: Clear to auscultation. CARDIOVASCULAR: S1 and S2. ABDOMEN: Soft. Surgical wound present. LABORATORY DATA: Reviewed. ASSESSMENT: 1. Infectious gastroenteritis. 2. Right lower quadrant ostomy output with Crohn disease. 3. Dehydration. 4. Multiple medical issues. RECOMMENDATIONS: Recommend to continue current management and continue symptomatic treatment. Continue the TPN. Repeat labs. Closely follow with Surgery. Prognosis guarded. Further recommendations to follow. See orders for further details. Closely follow with Infectious Disease as well. MMODL / IJN: [id number] /
[2022-09-19 20:59] LABS: Glucose,Whole Blood 99 mg/dL (70-110)
[2022-09-19] MEDS: POTASSIUM ACETATE IV SCH ×6 (21:24)
[2022-09-19] MEDS: [UNRECOGNIZED DRUG - OTHER] IV SCH ×6 (21:24)
[2022-09-19] MEDS: SODIUM ACETATE IV SCH ×6 (21:24)
[2022-09-19] MEDS: SODIUM PHOSPHATE IV SCH ×6 (21:24)
[2022-09-20] MEDS: PIPERACILLIN-TAZOBACTAM 3.375 GM in SODIUM CHLORIDE 0.9% 100 ML IVPB SCH ×3 (03:29→20:56)
[2022-09-20] MEDS: MORPHINE SULFATE 2 MG/ML SYRINGE IVP PRN ×5 (03:29→20:56)
[2022-09-20] MEDS: SODIUM CHLORIDE 0.9% 1,000 ML IV SCH ×2 (06:08→15:19)
[2022-09-20] MEDS: INSULIN ASPART (NovoLOG) 100 UNIT/ML VIAL SQ SCH ×4 (06:08→20:21)
[2022-09-20 07:31] LABS: African American GFR (CKD) >90 (>60 ml/min/1.73 sqM); Anion Gap 3 mmol/L; Blood Urea Nitrogen 14 mg/dL (9-20); Calcium 7.2 mg/dL (8.4-10.2); Carbon Dioxide 26 mmol/L (22-30); Chloride 106 mmol/L (98-107); Glucose 72 mg/dL (74-99); Magnesium 1.6 mg/dL (1.6-2.3); Non-African American GFR(CKD) >90 (>60 ml/min/1.73 sqM); Phosphorus 2.8 mg/dL (2.5-4.5); Potassium 3.8 mmol/L (3.5-5.1); Sodium 135 mmol/L (137-145)
[2022-09-20] MEDS: MVI, ADULT NO.4 WITH VIT K 10 ML, TRACE (CONC-1ML/DOSE) 1 ML, SODIUM ACETATE 30 MEQ, PO... IV SCH ×8 (09:53)
[2022-09-20] MEDS: CHOLESTYRAMINE (WITH SUGAR) 4 GM PACKET PO SCH ×4 (10:07→17:05)
[2022-09-20] MEDS: ENOXAPARIN 80 MG/0.8 ML SYRINGE SQ SCH ×2 (10:07→20:56)
[2022-09-20] MEDS: PANTOPRAZOLE 40 MG TABLET PO SCH (10:07)
[2022-09-20 11:30] LABS: Glucose,Whole Blood 87 mg/dL (70-110)
[2022-09-20 11:51] LABS: Basophils # (A) 0.02 X 10*3/uL (0.00-0.10); Basophils % (A) 0.5 %; Eosinophils # (A) 0.09 X 10*3/uL (0.04-0.35); Eosinophils % (A) 2.2 %; HCT 30.7 % (39.6-50.0); HGB 9.5 d/dL (12.0-15.0); Lymphocytes # (A) 1.94 X 10*3/uL (0.90-5.00); Lymphocytes % (A) 47.4 %; MCH 29.7 pg (27.0-32.0); MCHC 30.9 d/dL (32.0-37.0); MCV 95.9 FL (80.0-97.0); Mean Platelet Volume 10.4 FL (9.5-12.2); Monocytes # (A) 0.34 X 10*3/uL (0.20-1.00); Monocytes % (A) 8.3 %; NRBC Per 100 WBC 0 X 10*3/uL (0.00-0.01); Neutrophils # (A) 1.69 X 10*3/uL (1.80-7.70); Neutrophils % (A) 41.4 %; Platelet Count 185 X 10*3/uL (140-440); RDW 13.6 % (11.5-14.5); WBC 4.09 X 10*3/uL (4.50-10.00)
[2022-09-20] MEDS: MAGNESIUM SULFATE-D5W PMX 1 GM in DEXTROSE/WATER 1 100ML.BAG IVPB SCH ×2 (11:57→12:43)
--- NOTE | 2022-09-20 13:14 | P.GSCN ---
History of Present Illness Consult date: 09/20/22 History of present illness: CHIEF COMPLAINT: Weakness HISTORY OF PRESENT ILLNESS: This is a 47-year-old male with a known history of severe Crohn's disease and had ileocolectomy in August 2021 and then had an anastomotic leak requiring exploratory laparotomy with washout, takedown of ileocolonic anastomosis and ileostomy on 10/17/2021. Patient then had fascial dehiscence and ileostomy dehiscence with retraction and revision of ileostomy and placement of retention sutures with attempted closure of fascia. He was then transferred to [facility]. Patient does report that he follows with a general surgeon out of [facility] for previous colon abscess with fistula in October 2021. Patient presented to the hospital with weakness and increased output through his ostomy. He was evaluated by GI service they had added Lomotil. Patient's ostomy output has improved. Patient had computed tomography scan abdomen and pelvis completed on admission initially showed essentially stable postoperative appearance of the abdomen with ileostomy and ileostomy catheter noted. Previously noted seroma has resolved or has been drained in the interval. Another computed tomography scan completed due to fever has shown there appears to be an open wound along the mid abdomen. This contains debris and air suspicious for underlying abscess. Lateral to this co llection is a fat-containing hernia. This hernia is just medial to the insertion site of the ileostomy tube. Surrounding debris and air around the ileostomy tube within the subcutaneous tissue is suggestive for abscess at that level. However the intraperitoneal portion of the drainage tube appears without suspicious adjacent collection. Overall the settings appear to be improving from comparison. Patient does complain of burning sensation on the abdomen. But does report that this is not new. Surgical service has been consulted for abdominal abscess. He is currently afebrile. Patient seen and examined by Dr. Carvalho PAST MEDICAL HISTORY: CVA, DVT, Crohns, PAST SURGICAL HISTORY: Cholecystectomy, ileostomy October 2021, right leg below-knee amputation MEDICATIONS: See below ALLERGIES: See below SOCIAL HISTORY: No illicit drug use. REVIEW OF SYSTEMS: CONSTITUTIONAL: Denies fever or chills. HEENT: Denies blurred vision, vision changes, or eye pain. Denies hemoptysis CARDIOVASCULAR: Denies chest pain or pressure. RESPIRATORY: No shortness of breath. GASTROINTESTINAL: See HPI for pertinent findings HEMATOLOGIC: Denies bleeding disorders. GENITOURINARY: Denies any blood in urine or increased urinary frequency. SKIN: Denies pruitis. Denies rash. PHYSICAL EXAM: VITAL SIGNS: Reviewed GENERAL: Well-developed in no acute distress. HEENT: No sclera icterus. Extraocular movements grossly intact. Moist buccal mucosa. Head is atraumatic, normocephalic. No nasal drainage. ABDOMEN: Soft. Nondistended. Ileostomy with large bag liquidy watery yellow- brown stool. Stoma pink. Nontender. NEUROLOGIC: Alert and oriented. Cranial nerves II through XII grossly intact. LABORATORY DATA: WBC 4.09 Hgb 9.5 plt 185 Sodium 135 potassium is 3.8 creatinine 0.67 Magnesium 1.6 IMAGING: CT scans as stated above ASSESSMENT: 1. Severe Crohn's disease with ileostomy 2. Suspicious of underlying abdominal abscess on computed tomography scan PLAN: -Would recommend transfer to [facility] for evaluation in case patient requires any surgical intervention. Patient has extensive abdominal surgical history and follows with [facility] surgeon. -Continue antibiotics -Continue supportive care Thank you for this consultation Physician [employer] note has been reviewed by physician. Signing provider agrees with the documented findings, assessment, and plan of care. Past Medical History Past Medical History: CVA/TIA, Deep Vein Thrombosis (DVT) Additional Past Medical History / Comment(s): left sided weakness, right hand contracture, Hx CVA in 2012, during surgery to repair blood clot, states still has DVT in right arm. Crohns. Ostomy Bag placed in 09/2021. History of Any Multi-Drug Resistant Organisms: None Reported Past Surgical History: Cholecystectomy, Orthopedic Surgery Additional Past Surgical History / Comment(s): Arm surgery, right leg below knee amputation 2017, , ostomy (2021) Past Anesthesia/Blood Transfusion Reactions: No Reported Reaction Past Psychological History: No Psychological Hx Reported Additional Psychological History / Comment(s): PT STATED FEW DAYS AGO STARTED HAVING PAIN IN UPPER THIGH AND SWELLING THAT HAS PROGERESSED Smoking Status: Former smoker Past Alcohol Use History: None Reported Additional Past Alcohol Use History / Comment(s): QUIT SMOKING IN 2017, STARTED SMOKING AT AGE 16, 1PPD. Past Drug Use History: None Reported - Past Family History Father Additional Family Medical History / Comment(s): DAD IN HIS TWENTIES - CAUSE UNKNOWN. Mother Family Medical History: Diabetes Mellitus Brother(s) Family Medical History: Cancer Additional Family Medical History / Comment(s): Kidney cancer as a baby. Medications and Allergies Home Medications Medication Instructions Recorded Confirmed Type Enoxaparin [Lovenox] 80 mg SQ Q12H 07/07/22 09/10/22 History Pantoprazole [Protonix] 40 mg PO DAILY 07/07/22 09/10/22 History lisinopriL [Zestril] 2.5 mg PO DAILY 07/07/22 09/10/22 History methocarbamoL [Methocarbamol] 750 mg PO TID 07/07/22 09/10/22 History Albuterol Sulfate [Albuterol 1 - 2 puff PO RT-Q4H PRN 09/10/22 09/10/22 History Sulfate Hfa] Amoxic-Pot Clav 875-125Mg 1 each PO Q12HR 7 Days #14 tab 09/14/22 Rx [Augmentin 875-125] Diphenox-Atrop 2.5-0.025 mg 2 each PO QID 30 Days #12 tab 09/14/22 Rx [Lomotil] HYDROcodone/APAP 5-325MG [[place] 1 each PO Q6HR PRN 3 Days #12 tab 09/14/22 Rx 5-325] Allergies Allergy/AdvReac Type Severity Reaction Status Date / Time No Known Allergies Allergy Verified 09/10/22 18:42 Surgical - Exam Vital Signs Temp Pulse Resp BP Pulse Ox 97.6 F 91 18 97/56 96 09/10/22 17:26 09/10/22 17:26 09/10/22 17:26 09/10/22 17:26 09/10/22 17:26 Results - Labs 09/20/22 06:50 09/20/22 06:50 Abnormal Lab Results - Last 24 Hours (Table) 09/19/22 09/20/22 09/20/22 Range/Units 12:40 06:50 06:50 WBC 4.09 L (4.50-10.00) X 10*3/uL RBC 3.20 L (4.40-5.60) X 10*6/uL Hgb 9.5 L (12.0-15.0) d/dL Hct 30.7 L (39.6-50.0) % MCHC 30.9 L (32.0-37.0) d/dL Neutrophils # 1.69 L (1.80-7.70) X 10*3/uL Sodium 135 L (137-145) mmol/L Glucose 72 L (74-99) mg/dL POC Glucose (mg/dL) 124 H (70-110) mg/dL Calcium 7.2 L (8.4-10.2) mg/dL Microbiology - Last 24 Hours (Table) 09/16/22 18:25 Blood Culture - Preliminary Blood 09/16/22 18:25 Blood Culture - Preliminary Blood 09/16/22 02:24 Blood Culture - Preliminary Blood 09/15/22 23:43 Stool Culture - Final Stool Diabetes panel 09/20/22 Range/Units 06:50 Sodium 135 L (137-145) mmol/L Potassium 3.8 (3.5-5.1) mmol/L Chloride 106 (98-107) mmol/L Carbon Dioxide 26 (22-30) mmol/L BUN 14 (9-20) mg/dL Creatinine 0.67 (0.66-1.25) mg/dL Glucose 72 L (74-99) mg/dL Calcium 7.2 L (8.4-10.2) mg/dL Calcium panel 09/19/22 09/20/22 Range/Units 07:05 06:50 Calcium 7.2 L (8.4-10.2) mg/dL Phosphorus 3.1 2.8 (2.5-4.5) mg/dL Pituitary panel 09/20/22 Range/Units 06:50 Sodium 135 L (137-145) mmol/L Potassium 3.8 (3.5-5.1) mmol/L Chloride 106 (98-107) mmol/L Carbon Dioxide 26 (22-30) mmol/L BUN 14 (9-20) mg/dL Creatinine 0.67 (0.66-1.25) mg/dL Glucose 72 L (74-99) mg/dL Calcium 7.2 L (8.4-10.2) mg/dL Adrenal panel 09/20/22 Range/Units 06:50 Sodium 135 L (137-145) mmol/L Potassium 3.8 (3.5-5.1) mmol/L Chloride 106 (98-107) mmol/L Carbon Dioxide 26 (22-30) mmol/L BUN 14 (9-20) mg/dL Creatinine 0.67 (0.66-1.25) mg/dL Glucose 72 L (74-99) mg/dL Calcium 7.2 L (8.4-10.2) mg/dL
[2022-09-20] MEDS: SODIUM ACETATE IV SCH ×6 (20:57)
[2022-09-20] MEDS: [UNRECOGNIZED DRUG - OTHER] IV SCH ×6 (20:57)
[2022-09-20] MEDS: SODIUM PHOSPHATE IV SCH ×6 (20:57)
[2022-09-20] MEDS: POTASSIUM ACETATE IV SCH ×6 (20:57)
[2022-09-21] MEDS: MORPHINE SULFATE 2 MG/ML SYRINGE IVP PRN ×3 (01:16→13:13)
[2022-09-21] MEDS: SODIUM CHLORIDE 0.9% 1,000 ML IV SCH ×2 (03:21→13:15)
[2022-09-21] MEDS: PIPERACILLIN-TAZOBACTAM 3.375 GM in SODIUM CHLORIDE 0.9% 100 ML IVPB SCH ×2 (04:40→13:14)
[2022-09-21] MEDS: INSULIN ASPART (NovoLOG) 100 UNIT/ML VIAL SQ SCH ×2 (06:02→12:58)
[2022-09-21 09:15] LABS: African American GFR (CKD) >90 (>60 ml/min/1.73 sqM); Anion Gap 8 mmol/L; Blood Urea Nitrogen 15 mg/dL (9-20); Calcium 8.3 mg/dL (8.4-10.2); Carbon Dioxide 25 mmol/L (22-30); Chloride 102 mmol/L (98-107); Glucose 76 mg/dL (74-99); Magnesium 1.8 mg/dL (1.6-2.3); Non-African American GFR(CKD) >90 (>60 ml/min/1.73 sqM); Phosphorus 3.1 mg/dL (2.5-4.5); Potassium 4.1 mmol/L (3.5-5.1); Sodium 135 mmol/L (137-145)
[2022-09-21] MEDS: PANTOPRAZOLE 40 MG TABLET PO SCH (10:03)
[2022-09-21] MEDS: CHOLESTYRAMINE (WITH SUGAR) 4 GM PACKET PO SCH ×2 (10:03→15:12)
[2022-09-21] MEDS: ENOXAPARIN 80 MG/0.8 ML SYRINGE SQ SCH (10:05)
[2022-09-21] MEDS: MVI, ADULT NO.4 WITH VIT K 10 ML, TRACE (CONC-1ML/DOSE) 1 ML, SODIUM ACETATE 30 MEQ, PO... IV SCH ×8 (11:52)
--- NOTE | 2022-09-21 12:17 | P.PN ---
Subjective Progress Note Date: 09/21/22 CHIEF COMPLAINT: weakness HISTORY OF PRESENT ILLNESS: Patient with severe Crohn's disease with ileostomy. Patient reports no new complaints. She reports no new pain. Denies any nausea or vomiting. Tolerating regular diet. Awaiting transfer to [facility]. Afebrile. No new labs PHYSICAL EXAM: VITAL SIGNS: Reviewed. GENERAL: Well-developed in no acute distress. HEENT: No sclera icterus. Extraocular movements grossly intact. Moist buccal mucosa. Head is atraumatic, normocephalic. ABDOMEN: Soft. Nondistended. Nontender. Ileostomy with large bag liquidy watery yellow-brown stool. Stoma pink. NEUROLOGIC: Alert and oriented. Cranial nerves II through XII grossly intact. ASSESSMENT: 1. Severe Crohn's disease with ileostomy 2. Suspicious of underlying abdominal abscess on computed tomography scan 3. History of extensive abdominal surgeries PLAN: -Awaiting transfer to [facility] -Continue supportive care -Continue antibiotics Physician Clerical Specialist note has been reviewed by physician. Signing provider agrees with the documented findings, assessment, and plan of care. Objective - Vital Signs Vital signs: Vital Signs Temp 97.8 F 09/21/22 06:42 Pulse 94 09/21/22 06:42 Resp 16 09/21/22 06:42 BP 101/66 09/21/22 06:42 Pulse Ox 94 L 09/21/22 06:42 FiO2 21 09/11/22 09:30 Intake & Output 09/20/22 09/21/22 09/21/22 18:59 06:59 18:59 Output Total 2325 1050 Balance -2325 -1050 Output: Urine 800 350 Stool 1525 700 Other: Voiding Method External Catheter # Bowel Movements 1,800 560 - Labs CBC & Chem 7: 09/20/22 06:50 09/21/22 08:40 Labs: Abnormal Lab Results - Last 24 Hours (Table) 09/21/22 Range/Units 08:40 Sodium 135 L (137-145) mmol/L Calcium 8.3 L (8.4-10.2) mg/dL Microbiology - Last 24 Hours (Table) 09/16/22 18:25 Blood Culture - Preliminary Blood 09/16/22 18:25 Blood Culture - Preliminary Blood
--- NOTE | 2022-09-21 12:30 | P.PN ---
Subjective Progress Note Date: 09/20/22 Principal diagnosis: Fever Patient is a 47-year-old male who is in the hospital for almost a week presented on 09/10/2022 for evaluation of weakness in this patient who did have a history of prior CVA DVTs or anticoagulation and did have a history of Crohn's disease status post colectomy and ileostomy placement patient also have a PICC line to the left subclavian area placed on March 18, 2022 as the patient required TPN at home patient presenting symptom was weakness and significant output in his ileostomy bag, patient CT on admission 09/10/2022 was negative, patient was afebrile however he did spike a fever on 09/15/2022. On today's evaluation that is 09/20/2022 , the patient continues to be afebrile, the patient is breathing comfortably on room air, the patient denies any chest pain or shortness breath occasional cough , abdominal pain has decreased in int ensity , continued to have a significant output from his ileostomy Objective - Vital Signs Vital signs: Vital Signs Temp 98.2 F 09/20/22 00:55 Pulse 86 09/20/22 00:55 Resp 18 09/20/22 00:55 BP 100/66 09/20/22 00:55 Pulse Ox 89 L 09/20/22 00:55 FiO2 21 09/11/22 09:30 Intake & Output 09/19/22 09/20/22 09/20/22 18:59 06:59 18:59 Intake Total 4059 Output Total 2950 2400 Balance 1109 -2400 Weight 90.718 kg Intake: IV 2919 Fat Emulsion 20% 250 ml 250 In Empty Bag 1 bag @ 21 mls/hr IV WeSa@0900 [facility] Rx#:[id number] Invasive Line 1 50 Magnesium Sulfate-D5w Pmx 100 1 gm In Dextrose/Water 1 100ml.bag @ 100 mls/hr IVPB ONCE ONE Rx#: [id number] Piperacillin-Tazobactam 3 100 .375 gm In Sodium Chloride 0.9% 100 ml @ 25 mls/hr IVPB Q8H [facility] Rx#: [id number] Sodium Acetate 30 meq 1219 Potassium Acetate 40 meq Sodium Phosphate 12 mmol Sodium Chloride 4Meq/ml Vial 20 meq Magnesium Sulfate gm 1 gm In Amino Acids 5 %/Dextrose 20 % 1 ,000 ml @ 106 mls/hr IV DAILY@1900 [facility] Rx#: [id number] Sodium Chloride 0.9% 1, 1200 000 ml @ 100 mls/hr IV . Q10H [facility] Rx#:[id number] Oral 1140 Output: Urine 600 700 Stool 2350 1700 Other: Voiding Method External Catheter - Exam GENERAL DESCRIPTION: Middle-age male lying in bed in no distress RESPIRATORY SYSTEM: Unlabored breathing , decreased breath sounds at bases HEART: S1 S2 regular rate and rhythm , ABDOMEN: Soft , no tenderness EXTREMITIES: No edema feet - Labs CBC & Chem 7: 09/20/22 06:50 09/21/22 08:40 Labs: Abnormal Lab Results - Last 24 Hours (Table) 09/19/22 09/20/22 Range/Units 12:40 06:50 Sodium 135 L (137-145) mmol/L Glucose 72 L (74-99) mg/dL POC Glucose (mg/dL) 124 H (70-110) mg/dL Calcium 7.2 L (8.4-10.2) mg/dL Microbiology - Last 24 Hours (Table) 09/16/22 18:25 Blood Culture - Preliminary Blood 09/16/22 18:25 Blood Culture - Preliminary Blood 09/16/22 02:24 Blood Culture - Preliminary Blood 09/15/22 23:43 Stool Culture - Final Stool Assessment and Plan (1) Fever Current Visit: Yes Status: Acute Code(s): R50.9 - FEVER, UNSPECIFIED SNOMED Code(s): 532752668 Plan: 1patient who with fever in this patient the hospital for about a week and did have multiple comorbidities including Crohn's disease status post subtotal colectomy and ileostomy patient also have a PICC line for more than 6 months now and uses TPN patient did have a CT abdominal pelvis on admission did not show any abscess chest x-ray was negative questionably PICC line infection, however the patient culture has been negative so far that will make it less likely patient's chest x-ray was negative for any pneumonia and the patient did have a CRP was 1.6 and Procalcitonin 0.31 3-patient CT abdominal pelvis which was done with IV contrast only as the patient refuses oral contrast concerning for intra-abdominal abdominal wall abscess surgery was consulted , recommending to transfer pt to [facility] to be evaluated by surgeon who did the initial surgery, discussed with admitting team and continue with zosyn Time with Patient: Less than 30
[2022-09-21 14:33] VITALS: BP 97/63; PULSE 92; RESP 17; TEMP 98
== END 2022-09-21 16:21 | disposition short-term general hospital (02) | DRG 386 ==
LOC: EC 17:22 → 4SSUR 19:56
PROVIDERS: ADMIT Hospitalist; ATTEND Hospitalist
DX: K50.90 Crohn's disease, unspecified, without complications (principal); E87.0 Hyperosmolality and hypernatremia; E87.1 Hypo-osmolality and hyponatremia; E86.0 Dehydration; E86.1 Hypovolemia; E87.6 Hypokalemia; E87.8 Other disorders of electrolyte and fluid balance, not elsewhere classified; G89.29 Other chronic pain; Z20.822 Contact with and (suspected) exposure to COVID-19; K76.0 Fatty (change of) liver, not elsewhere classified; L89.90 Pressure ulcer of unspecified site, unspecified stage; Z74.01 Bed confinement status; Z79.01 Long term (current) use of anticoagulants; Z79.899 Other long term (current) drug therapy; Z80.51 Family history of malignant neoplasm of kidney; Z83.3 Family history of diabetes mellitus; Z86.718 Personal history of other venous thrombosis and embolism; Z86.73 Personal history of transient ischemic attack (TIA), and cerebral infarction without residual deficits; Z89.511 Acquired absence of right leg below knee; Z90.49 Acquired absence of other specified parts of digestive tract; Z93.3 Colostomy status
CPT/HCPCS: 36415; 70450; 71045; 71046; 74177; 76705; 80048; 80053; 80074; 80076; 82103; 82105; 82330; 82390; 83036; 83516; 83605; 83630; 83735; 83993; 84100; 84145; 84478; 84484; 85025; 85610; 85652; 85730; 86038; 86140; 87040; 87045; 87046; 87324; 87635; 87636; 93005; 94760; 96361; 96374; 96375; 96376; 99291

== ENCOUNTER 2022-11-09 22:05 | Inpatient (IN) | payer OTHER ==
[2022-11-09] MEDS ORDERED: SODIUM CHLORIDE 0.9% 1,000 ML IV STA ×3 (22:27→23:35)
[2022-11-09] MEDS ORDERED: KETOROLAC 15 MG/ML 1 ML VIAL IVP STA (22:28)
[2022-11-09] MEDS ORDERED: ACETAMINOPHEN IV (For NPO) 1,000 MG in EMPTY BAG 1 BAG IVPB STA (22:28)
--- NOTE | 2022-11-09 22:29 | ED ---
Fever HPI - General Chief Complaint: Fever Stated Complaint: FEVER Time Seen by Provider: 11/09/22 22:23 Source: patient, EMS, RN notes reviewed, old records reviewed Mode of arrival: EMS Limitations: no limitations - History of Present Illness Initial Comments: This is a 47-year-old male to the emergency department for evaluation. Patient presents today for evaluation regards to fever , complains of significant and severe illness severe. Weakness lightheadedness dizziness cough congestion and generalized severe disability. Patient does have significant debility and fever. MD Complaint: fever, malaise, weakness -: days(s) Temperature Source: subjective Associated Symptoms: chills, rigors Treatments Prior to Arrival: none - Related Data Home Medications Medication Instructions Recorded Confirmed Enoxaparin [Lovenox] 80 mg SQ Q12H 07/07/22 11/10/22 Pantoprazole [Protonix] 40 mg PO DAILY 07/07/22 11/10/22 methocarbamoL [Methocarbamol] 750 mg PO TID 07/07/22 11/10/22 Albuterol Sulfate [Albuterol 1 - 2 puff PO RT-Q4H PRN 09/10/22 11/10/22 Sulfate Hfa] Diphenox-Atrop 2.5-0.025 mg 1 tab PO TID PRN 11/10/22 11/10/22 [Lomotil] Ergocalciferol (Vitamin D2) 1,250 mcg PO TH 11/10/22 11/10/22 [Drisdol (50,000 Iu)] Loperamide HCl [Loperamide] 4 mg PO Q6H PRN 11/10/22 11/10/22 Previous Rx's Medication Instructions Recorded Metoprolol Tartrate [Lopressor] 12.5 mg PO BID #30 tab 11/15/22 ceFAZolin [Kefzol] 2 gm IVP Q8HR #24 each 11/16/22 Allergies Allergy/AdvReac Type Severity Reaction Status Date / Time No Known Allergies Allergy Verified 11/09/22 22:14 Review of Systems ROS Statement: Those systems with pertinent positive or pertinent negative responses have been documented in the HPI. ROS Other: All systems not noted in ROS Statement are negative. Past Medical History Past Medical History: CVA/TIA, Deep Vein Thrombosis (DVT) Additional Past Medical History / Comment(s): Progressing left upper thigh pain and swelling and left leg weakness. 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 Crohns. Ostomy Bag placed in 09/2021. History of Any Multi-Drug Resistant Organisms: None Reported Past Surgical History: Cholecystectomy, Orthopedic Surgery Additional Past Surgical History / Comment(s): Arm surgery, right leg below knee amputation, ostomy (2021) Past Anesthesia/Blood Transfusion Reactions: No Reported Reaction Past Psychological History: No Psychological Hx Reported Smoking Status: Former smoker Past Alcohol Use History: None Reported Past Drug Use History: None Reported - Past Family History Father Additional Family Medical History / Comment(s): DAD IN HIS TWENTIES - CAUSE UNKNOWN. Mother Family Medical History: Diabetes Mellitus Brother(s) Family Medical History: Cancer Additional Family Medical History / Comment(s): Kidney cancer as a baby. General Exam General appearance: alert, in no apparent distress, anxious, obese Head exam: Present: atraumatic, normocephalic, normal inspection Eye exam: Present: normal appearance, PERRL, EOMI. Absent: scleral icterus, conjunctival injection, periorbital swelling ENT exam: Present: normal exam, mucous membranes moist Neck exam: Present: normal inspection. Absent: tenderness, meningismus, lymphadenopathy Respiratory exam: Present: normal lung sounds bilaterally. Absent: respiratory distress, wheezes, rales, rhonchi, stridor Cardiovascular Exam: Present: normal rhythm, tachycardia, normal heart sounds. Absent: systolic murmur, diastolic murmur, rubs, gallop, clicks GI/Abdominal exam: Present: soft, normal bowel sounds. Absent: distended, tenderness, guarding, rebound, rigid Extremities exam: Present: normal inspection, full ROM, normal capillary refill. Absent: tenderness, pedal edema, joint swelling, calf tenderness Back exam: Present: normal inspection Neurological exam: Present: alert, oriented X3, CN II-XII intact Psychiatric exam: Present: normal affect, normal mood Skin exam: Present: warm, dry, intact, normal color. Absent: rash Course Vital Signs 11/09/22 11/09/22 11/09/22 22:07 23:00 23:50 Temperature 103.2 F H 99.9 F H Pulse Rate 129 H 124 H 110 H Respiratory 20 18 18 Rate Blood Pressure 107/49 77/40 78/34 O2 Sat by Pulse 94 L 95 95 Oximetry 11/10/22 11/10/22 11/10/22 00:00 01:11 02:00 Temperature Pulse Rate 107 H 102 H 111 H Respiratory 18 18 18 Rate Blood Pressure 77/33 88/45 101/48 O2 Sat by Pulse 94 L 97 95 Oximetry 11/10/22 11/10/22 11/10/22 02:08 02:28 03:00 Temperature Pulse Rate 109 H 100 93 Respiratory 18 Rate Blood Pressure 101/43 O2 Sat by Pulse 95 Oximetry 11/10/22 04:00 Temperature Pulse Rate 112 H Respiratory 18 Rate Blood Pressure 109/68 O2 Sat by Pulse 95 Oximetry - Reevaluation(s) Reevaluation #1: 11/09/22 23:34 Medical record is reviewed Reevaluation #2: 11/09/22 23:36 Patient's blood pressure significantly low although improving with hydration Patient symptoms are improving with fever control Reevaluation #3: Patient informed of results and questions answered Reevaluation #4: 11/09/22 23:06 Was pt. sent in by a medical professional or institution (, PA, MOBILE SALES EXPERT, urgent care, hospital, or care home...) When possible be specific @ -no Did you speak to anyone other than the patient for history (EMS, parent, family, police, friend...)? What history was obtained from this source @ -no Did you review nursing and triage notes (agree or disagree)? Why? @ -agree Are old charts reviewed (outside hosp., previous admission, EMS record, old EKG, old radiological studies, urgent care reports/EKG's, care home records)? Report findings @ -yes Differential Diagnosis (chest pain, altered mental status, abdominal pain women, abdominal pain men, vaginal bleeding, weakness, fever, dyspnea, syncope, headache, dizziness, GI bleed, back pain, seizure, CVA, palpatations, mental health, musculoskeletal)? @ -prior EKG interpreted by me (3pts min.). @ -yes X-rays interpreted by me (1pt min.). @ -yes CT interpreted by me (1pt min.). @ -no U/S interpreted by me (1pt. min.). @ -no What testing was considered but not performed or refused? (CT, X-rays, U/S, labs)? Why? @ -none What meds were considered but not given or refused? Why? @ -none Did you discuss the management of the patient with other professionals (professionals i.e. , PA, MOBILE SALES EXPERT, lab, RT, psych nurse, social media marketer, flat lock machine operator, teacher, first officer and flight instructor, nurse case management)? Give summary @ -no Was smoking cessation discussed for >3mins.? @ -no Was critical care preformed (if so, how long)? @ -no Were there social determinants of health that impacted care today? How? (Homelessness, low income, unemployed, alcoholism, drug addiction, transportation, low edu. Level, literacy, decrease access to med. care, skilled nursing, rehab)? @ -none Was there de-escalation of care discussed even if they declined (Discuss DNR or withdrawal of care, Hospice)? DNR status @ -no What co-morbidities impacted this encounter? (DM, HTN, Smoking, COPD, CAD, Cancer, CVA, ARF, Chemo, Hep., AIDS, mental health diagnosis, sleep apnea, morbid obesity)? @ -none Was patient admitted / discharged? Hospital course, mention meds given and route, prescriptions, significant lab abnormalities, going to OR and other pertinent info. @ - 47 male to the emergency department for evaluation of significant debility and febrile illness. Patient be admitted for IV antibiotics secondary to pneumonia. Admitted Undiagnosed new problem with uncertain prognosis? @ -no Drug Therapy requiring intensive monitoring for toxicity (Heparin, Nitro, Insulin, Cardizem)? @ -no Were any procedures done? @ -no Diagnosis/symptom? @ -Hypoxia, hypotension, fever, pneumonia Acute, or Chronic, or Acute on Chronic? @ -Acute Uncomplicated (without systemic symptoms) or Complicated (systemic symptoms)? @ -Complicated Side effects of treatment? @ -no Exacerbation, Progression, or Severe Exacerbation? @ -exacerbation Poses a threat to life or bodily function? How? (Chest pain, [place], [place], pneumonia, PE, COPD, DKA, ARF, appy, cholecystitis, CVA, Diverticulitis, Homicidal, Suicidal, threat to staff... and all critical care pts) @ -yes with sepsis Reevaluation #5: Differential Fever: Pneumonia, viral URI, endocarditis, myocarditis, pericarditis, otitis, sinusitis, peritonsillar Abscess, retropharyngeal Abscess, epiglottitis, peritonitis, appendicitis, Maria L cystitis, diverticulitis, hepatitis, colitis, UTI, PID, TOA, pyelonephritis, prostatitis, epididymitis, meningitis, encephalitis, pulmonary embolism, CVA, thyroid storm, pancreatitis, adrenal crisis, cavernous sinus thrombosis, this is not meant to be an all-inclusive list. - Consultations Consultation #1: Spoke with [facility] were agrees to admit this patient Procedures - Sepsis Sepsis Focused Exam #1 Time Sepsis Criteria Met: 01:00 Sepsis Focused Exam Date: 11/10/22 Sepsis Focused Exam Time: 03:00 Sepsis Focused Exam Complete: Yes Vital Signs & RN Notes Reviewed: Yes Capillary Refill: < 2 Seconds: Fingers, Toes Peripheral Pulses: Normal: Radial (R), Radial (L), Posterior Tibialis (R), Posterior Tibialis (L), Dorsalis Pedis (R), Dorsalis Pedis (L) Skin Color: Normal for Patient Respiratory Exam: normal lung sounds Cardiovascular Exam: tachycardia Medical Decision Making - Medical Decision Making 47 male to the emergency department for evaluation of significant debility and febrile illness. Patient be admitted for IV antibiotics secondary to pneumonia. - Lab Data Result diagrams: 11/16/22 06:47 11/16/22 06:47 Lab Results 11/09/22 11/09/22 11/09/22 Range/Units 22:55 22:55 23:24 WBC 5.5 (3.8-10.6) k/uL RBC 3.99 L (4.30-5.90) m/uL Hgb 12.6 L (13.0-17.5) gm/dL Hct 37.7 L (39.0-53.0) % MCV 94.6 (80.0-100.0) fL MCH 31.5 (25.0-35.0) pg MCHC 33.3 (31.0-37.0) g/dL RDW 14.5 (11.5-15.5) % Plt Count 139 L (150-450) k/uL MPV 9.1 Neutrophils % 66 % Lymphocytes % 26 % Monocytes % 4 % Eosinophils % 1 % Basophils % 0 % Neutrophils # 3.6 (1.3-7.7) k/uL Lymphocytes # 1.4 (1.0-4.8) k/uL Monocytes # 0.2 (0-1.0) k/uL Eosinophils # 0.0 (0-0.7) k/uL Basophils # 0.0 (0-0.2) k/uL Sodium 130 L (137-145) mmol/L Potassium 4.4 (3.5-5.1) mmol/L Chloride 98 (98-107) mmol/L Carbon Dioxide 28 (22-30) mmol/L Anion Gap 4 mmol/L BUN 27 H (9-20) mg/dL Creatinine 0.69 (0.66-1.25) mg/dL Est GFR (CKD-EPI)AfAm >90 (>60 ml/min/1.73 sqM) Est GFR (CKD-EPI)NonAf >90 (>60 ml/min/1.73 sqM) Glucose 90 (74-99) mg/dL Calcium 8.4 (8.4-10.2) mg/dL Phosphorus 2.8 (2.5-4.5) mg/dL Magnesium 2.1 (1.6-2.3) mg/dL Total Bilirubin 1.9 H (0.2-1.3) mg/dL AST 111 H (17-59) U/L ALT 95 H (4-49) U/L Alkaline Phosphatase 119 (38-126) U/L Total Protein 6.9 (6.3-8.2) g/dL Albumin 2.7 L (3.5-5.0) g/dL Influenza Type A (PCR) Not Detected (Not Detectd) Influenza Type B (PCR) Not Detected (Not Detectd) RSV (PCR) Not Detected (Not Detectd) SARS-CoV-2 (PCR) Not Detected (Not Detectd) - Radiology Data Radiology results: report reviewed (Chest x-rays negative for acute disease), image reviewed Critical Care Time Critical Care Time: Yes Total Critical Care Time: 31 Disposition Clinical Impression: Sepsis, Fever, Community acquired pneumonia, Weakness, Hypotension, Hypoxia Disposition: ADMITTED IP TO THIS HOSP Condition: Serious Is patient prescribed a controlled substance at d/c from ED?: No Time of Disposition: 02:00
[2022-11-09 23:19] LABS: Basophils % (A) 0 %; Eosinophils % (A) 1 %; HCT 37.7 % (39.0-53.0); HGB 12.6 gm/dL (13.0-17.5); Lymphocytes # (A) 1.4 k/uL (1.0-4.8); Lymphocytes % (A) 26 %; MCH 31.5 pg (25.0-35.0); MCHC 33.3 g/dL (31.0-37.0); MCV 94.6 fL (80.0-100.0); Mean Platelet Volume 9.1; Monocytes # (A) 0.2 k/uL (0-1.0); Monocytes % (A) 4 %; Neutrophils # (A) 3.6 k/uL (1.3-7.7); Neutrophils % (A) 66 %; Platelet Count 139 k/uL (150-450); RBC 3.99 m/uL (4.30-5.90); RDW 14.5 % (11.5-15.5); WBC 5.5 k/uL (3.8-10.6)
[2022-11-09 23:47] LABS: ALT 95 U/L (4-49); AST 111 U/L (17-59); African American GFR (CKD) >90 (>60 ml/min/1.73 sqM); Albumin 2.7 g/dL (3.5-5.0); Alkaline Phosphatase 119 U/L (38-126); Anion Gap 4 mmol/L; Blood Urea Nitrogen 27 mg/dL (9-20); Calcium 8.4 mg/dL (8.4-10.2); Carbon Dioxide 28 mmol/L (22-30); Chloride 98 mmol/L (98-107); Glucose 90 mg/dL (74-99); Magnesium 2.1 mg/dL (1.6-2.3); Non-African American GFR(CKD) >90 (>60 ml/min/1.73 sqM); Phosphorus 2.8 mg/dL (2.5-4.5); Potassium 4.4 mmol/L (3.5-5.1); Sodium 130 mmol/L (137-145); Total Bilirubin 1.9 mg/dL (0.2-1.3); Total Protein 6.9 g/dL (6.3-8.2)
--- NOTE | 2022-11-10 00:46 | XR ---
EXAMINATION TYPE: XR chest 1V portable DATE OF EXAM: 11/10/2022 COMPARISON: 7323 HISTORY: Pain TECHNIQUE: Single frontal view of the chest is obtained. FINDINGS: Elevated right hemidiaphragm with subsegmental consolidation. Surgical clips soft tissue n maria guadalupe and left-sided PICC line. Heart is enlarged with no overt failure or pneumothorax. Osseous struct ures stable. IMPRESSION: Right lower lobe infiltrate.
[2022-11-10] MEDS ORDERED: PIPERACILLIN-TAZOBACTAM 3.375 GM in SODIUM CHLORIDE 0.9% 100 ML IVPB STA (01:11)
[2022-11-10] MEDS ORDERED: LEVOFLOXACIN 750MG-D5W PMX 750 MG in DEXTROSE/WATER 1 150ML.BAG IVPB STA (01:11)
[2022-11-10] MEDS ORDERED: IPRATROPIUM-ALBUTEROL 3 ML NEB INHALATION STA (01:12)
[2022-11-10] MEDS ORDERED: LEVOFLOXACIN 750MG-D5W PMX 750 MG in DEXTROSE/WATER 1 150ML.BAG IVPB SCH (01:15)
[2022-11-10] MEDS ORDERED: KETOROLAC 15 MG/ML 1 ML VIAL IVP PRN (02:04)
[2022-11-10] MEDS ORDERED: NALOXONE 0.4 MG/ML 1 ML VIAL IV PRN (02:04)
[2022-11-10] MEDS: SODIUM CHLORIDE 0.9% 1,000 ML IV SCH ×2 (02:16→07:45)
[2022-11-10] MEDS: ACETAMINOPHEN TAB 325 MG TAB PO PRN ×3 (06:12→21:30)
[2022-11-10 06:24] LABS: Appearance,Urine Clear (Clear); Bilirubin,Urine Negative (Negative); Blood,Urine Negative (Negative); Color,Urine Yellow; Glucose,Urine (UA) Negative (Negative); Ketones,Urine Negative (Negative); Leukocyte Esterase,Urine Negative (Negative); Nitrite,Urine Negative (Negative); PH, Urine 5.5 (5.0-8.0); Protein,Urine Trace (Negative); Specific Gravity,Urine 1.027 (1.001-1.035); Urobilinogen,Urine <2.0 mg/dL (<2.0)
[2022-11-10] MEDS: PANTOPRAZOLE 40 MG/10 ML VIAL IV SCH (07:44)
[2022-11-10] MEDS ORDERED: SODIUM CHLORIDE 0.9% 1,000 ML IV ONE ×2 (08:00→12:07)
[2022-11-10] MEDS: PIPERACILLIN-TAZOBACTAM 3.375 GM in SODIUM CHLORIDE 0.9% 100 ML IVPB SCH ×2 (10:17→18:03)
[2022-11-10 10:43] VITALS: BMI 28.7
--- NOTE | 2022-11-10 11:47 | P.HPIM ---
History of Present Illness [id number]-[id number] pleasant male came in with compensative fever lightheadedness and dizziness and dizziness without any cough denied any dysuria denied any abdominal pain denied any increased diarrhea. Patient has history of Crohn's disease and bowel surgeries and has a colostomy and a subclavian central line in the left chest for TPA and patient has been on TPN and the has a central line since month of April. Patient had high-grade fevers along with hyponatremia and hypotension. Chest x-ray suspicious for right lower lobe pneumonia although it appears more atelectasis. Patient was tachycardic as well. REVIEW OF SYSTEMS: CONSTITUTIONAL: As mentioned above HEENT: No recent visual problems or hearing problems. Denied any sore throat. CARDIOVASCULAR: No chest pain, orthopnea, PND, no palpitations, no syncope. PULMONARY: No shortness of breath, no cough, no hemoptysis. GASTROINTESTINAL: No diarrhea, no nausea, no vomiting, no abdominal pain. NEUROLOGICAL: No headaches, no weakness, no numbness. HEMATOLOGICAL: Denies any bleeding or petechiae. GENITOURINARY: Denies any burning micturition, frequency, or urgency. MUSCULOSKELETAL/RHEUMATOLOGICAL: Denies any joint pain, swelling, or any muscle pain. ENDOCRINE: Denies any polyuria or polydipsia. The rest of the 14-point review of systems is negative. PHYSICAL EXAMINATION: GENERAL: The patient is alert and oriented x3, not in any acute distress. Obese HEENT: Pupils are round and equally reacting to light. EOMI. No scleral icterus. No conjunctival pallor. Normocephalic, atraumatic. No pharyngeal erythema. No thyromegaly. CARDIOVASCULAR: S1 and S2 present. No murmurs, rubs, or gallops. PULMONARY: Chest is clear to auscultation, no wheezing or crackles. ABDOMEN: Soft, nontender, nondistended, normoactive bowel sounds. No palpable organomegaly. Patient has a colostomy MUSCULOSKELETAL: No joint swelling or deformity. EXTREMITIES: No cyanosis, clubbing, or pedal edema. Right below-knee amputation NEUROLOGICAL: Gross neurological examination did not reveal any focal deficits. SKIN: No rashes. Assessment and plan -Severe sepsis: Source is not clear that time can be secondary to the central line infection rather pneumonia. Patient is getting Zosyn will add vancomycin blood cultures will be obtained from the central line and infectious disease will evaluate the patient. -Hyponatremia secondary to hypovolemia from sepsis-Sinus tachycardia secondary to sepsis: Patient will continued on IV fluids -History of Crohn's disease with the abdominal surgeries and a colostomy, patient is on TPN -Hypertension patient is septic and hypotensive at this time DVT prophylaxis: Lovenox Past Medical History Past Medical History: CVA/TIA, Deep Vein Thrombosis (DVT) Additional Past Medical History / Comment(s): Progressing left upper thigh pain and swelling and left leg weakness. 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 Crohns. Ostomy Bag placed in 09/2021. History of Any Multi-Drug Resistant Organisms: None Reported Past Surgical History: Cholecystectomy, Orthopedic Surgery Additional Past Surgical History / Comment(s): Arm surgery, right leg below knee amputation, ostomy (2021) Past Anesthesia/Blood Transfusion Reactions: No Reported Reaction Past Psychological History: No Psychological Hx Reported Smoking Status: Former smoker Past Alcohol Use History: None Reported Additional Past Alcohol Use History / Comment(s): QUIT SMOKING IN 2016, STARTED SMOKING AT AGE 16, 1PPD. Past Drug Use History: None Reported - Past Family History Father Additional Family Medical History / Comment(s): DAD IN HIS TWENTIES - CAUSE UNKNOWN. Mother Family Medical History: Diabetes Mellitus Brother(s) Family Medical History: Cancer Additional Family Medical History / Comment(s): Kidney cancer as a baby. Medications and Allergies Home Medications Medication Instructions Recorded Confirmed Type Enoxaparin [Lovenox] 80 mg SQ Q12H 07/07/22 09/10/22 History Pantoprazole [Protonix] 40 mg PO DAILY 07/07/22 09/10/22 History lisinopriL [Zestril] 2.5 mg PO DAILY 07/07/22 09/10/22 History methocarbamoL [Methocarbamol] 750 mg PO TID 07/07/22 09/10/22 History Albuterol Sulfate [Albuterol 1 - 2 puff PO RT-Q4H PRN 09/10/22 09/10/22 History Sulfate Hfa] Amoxic-Pot Clav 875-125Mg 1 each PO Q12HR 7 Days #14 tab 09/14/22 Rx [Augmentin 875-125] Diphenox-Atrop 2.5-0.025 mg 2 each PO QID 30 Days #12 tab 09/14/22 Rx [Lomotil] HYDROcodone/APAP 5-325MG [[place] 1 each PO Q6HR PRN 3 Days #12 tab 09/14/22 Rx 5-325] Allergies Allergy/AdvReac Type Severity Reaction Status Date / Time No Known Allergies Allergy Verified 11/09/22 22:14 Physical Exam Vitals: Vital Signs Temp Pulse Pulse Resp BP BP Pulse Ox 11/10/22 09:03 105 H 20 108/64 92 L 11/10/22 07:39 99.1 F 116 H 20 82/42 93 L 11/10/22 05:58 128 H 20 11/10/22 05:51 102.9 F H 115/61 11/10/22 04:47 103.1 F H 128 H 20 132/84 91 L 11/10/22 04:00 112 H 18 109/68 95 11/10/22 03:00 93 18 101/43 95 11/10/22 02:28 100 11/10/22 02:08 109 H 11/10/22 02:00 111 H 18 101/48 95 11/10/22 01:11 102 H 18 88/45 97 11/10/22 00:00 107 H 18 77/33 94 L 11/09/22 23:50 99.9 F H 110 H 18 78/34 95 11/09/22 23:00 124 H 18 77/40 95 11/09/22 22:07 103.2 F H 129 H 20 107/49 94 L Intake and Output 11/09/22 11/10/22 11/10/22 22:59 06:59 14:59 Output Total 800 600 Balance -800 -600 Output: Urine 200 Stool 600 600 Other: Voiding Method External Catheter External Catheter # Bowel Movements 600 Weight 90.718 kg 90.718 kg 90.718 kg Results CBC & Chem 7: 11/09/22 22:55 11/09/22 22:55 Labs: Abnormal Lab Results - Last 24 Hours (Table) 11/09/22 11/09/22 11/10/22 Range/Units 22:55 22:55 06:14 RBC 3.99 L (4.30-5.90) m/uL Hgb 12.6 L (13.0-17.5) gm/dL Hct 37.7 L (39.0-53.0) % Plt Count 139 L (150-450) k/uL Sodium 130 L (137-145) mmol/L BUN 27 H (9-20) mg/dL Total Bilirubin 1.9 H (0.2-1.3) mg/dL AST 111 H (17-59) U/L ALT 95 H (4-49) U/L Albumin 2.7 L (3.5-5.0) g/dL Urine Protein Trace H (Negative) Thrombosis Risk Factor Assmnt - Choose All That Apply Any of the Below Risk Factors Present?: Yes Each Factor Represents 1 point: Age 41-60 years Other Risk Factors: Yes Each Risk Factor Represents 2 Points: Patient confined to bed Each Risk Factor Represents 3 Points: History of DVT/PE Other congenital or acquired thrombophilia - If yes, enter type in comment: No Thrombosis Risk Factor Assessment Total Risk Factor Score: 6 Thrombosis Risk Factor Assessment Level: High Risk
[2022-11-10] MEDS ORDERED: VANCOMYCIN IV PER PHARMACY 1 EACH MISC MISCELLANE PRN (14:00)
[2022-11-10] MEDS ORDERED: VANCOMYCIN 1,750 MG in SODIUM CHLORIDE 0.9% 500 ML 500 ML IVPB SCH (14:00)
[2022-11-10] MEDS ORDERED: IOPAMIDOL CONTRAST (ORAL USE) VIAL PO PRN (15:55)
[2022-11-10] MEDS: IPRATROPIUM-ALBUTEROL 3 ML NEB INHALATION PRN (21:07)
[2022-11-10 23:28] LABS: Basophils % (A) 0 %; Eosinophils % (A) 0 %; HCT 34.3 % (39.0-53.0); HGB 11.3 gm/dL (13.0-17.5); Lymphocytes # (A) 0.9 k/uL (1.0-4.8); Lymphocytes % (A) 35 %; MCHC 32.9 g/dL (31.0-37.0); MCV 94.2 fL (80.0-100.0); Mean Platelet Volume 8.4; Monocytes # (A) 0.1 k/uL (0-1.0); Monocytes % (A) 5 %; Neutrophils # (A) 1.4 k/uL (1.3-7.7); Neutrophils % (A) 56 %; Platelet Count 104 k/uL (150-450); RBC 3.64 m/uL (4.30-5.90); RDW 14.6 % (11.5-15.5); WBC 2.5 k/uL (3.8-10.6)
[2022-11-11] MEDS: PIPERACILLIN-TAZOBACTAM 3.375 GM in SODIUM CHLORIDE 0.9% 100 ML IVPB SCH ×3 (03:29→17:01)
[2022-11-11] MEDS: SODIUM CHLORIDE 0.9% 1,000 ML IV SCH ×2 (03:30→06:31)
[2022-11-11 04:36] LABS: ALT 114 U/L (4-49); AST 161 U/L (17-59); African American GFR (CKD) >90 (>60 ml/min/1.73 sqM); Albumin 2.2 g/dL (3.5-5.0); Alkaline Phosphatase 86 U/L (38-126); Anion Gap 6 mmol/L; Blood Urea Nitrogen 14 mg/dL (9-20); Calcium 8.1 mg/dL (8.4-10.2); Carbon Dioxide 22 mmol/L (22-30); Chloride 100 mmol/L (98-107); Glucose 70 mg/dL (74-99); Magnesium 1.3 mg/dL (1.6-2.3); Non-African American GFR(CKD) >90 (>60 ml/min/1.73 sqM); Sodium 128 mmol/L (137-145); Total Bilirubin 1.5 mg/dL (0.2-1.3); Total Protein 5.9 g/dL (6.3-8.2)
[2022-11-11 05:05] LABS: MCH 31.5 pg (25.0-35.0); MCHC 33.2 g/dL (31.0-37.0); MCV 94.9 fL (80.0-100.0); Platelet Count 114 k/uL (150-450); RBC 3.79 m/uL (4.30-5.90); RDW 14.5 % (11.5-15.5); WBC 2.4 k/uL (3.8-10.6)
[2022-11-11 05:44] LABS: Band Neutrophils % 3 %; Lymphocytes # (M) 0.72 k/uL (1.0-4.8); Neutrophils % (M) 63 %; Nucleated Red Blood Cells 0 /100 WBC (0-0); RBC Morphology Normal; Total Cells Counted 100
[2022-11-11] MEDS: PANTOPRAZOLE 40 MG/10 ML VIAL IV SCH (08:09)
[2022-11-11] MEDS: IPRATROPIUM-ALBUTEROL 3 ML NEB INHALATION PRN (08:32)
[2022-11-11] MEDS ORDERED: ENOXAPARIN 40 MG/0.4 ML SYRINGE SQ SCH (09:00)
--- NOTE | 2022-11-11 09:23 | P.GSCN ---
History of Present Illness Consult date: 11/11/22 Reason for Consult: Ostomy bleeding History of present illness: 47-year-old male with multiple comorbidities. Patient known to our service from previous right colectomy with subsequent anastomotic breakdown and ileostomy placement. 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 He has a large stomal appliance covering a large wound. Patient states that this is carefully for through [facility]. He follows with GI locally. He was having some blood in his stoma last night and for that reason we are consulted. No bleeding today. He says this happens occasionally. He actually came to the hospital because of fevers. He takes Lovenox at home and is on TPN. No blood thinners here. Patient was tachycardic on arrival but states he was not bleeding at home. Hemoglobin sta ble 12.0. Review of Systems The patient denies any acute changes in vision or hearing, no dysphagia or odynophagia, no chest pain or shortness of breath, no dysuria or hematuria, no headache, no runny nose, no unexplained weight loss Past Medical History Past Medical History: CVA/TIA, Deep Vein Thrombosis (DVT) Additional Past Medical History / Comment(s): Progressing left upper thigh pain and swelling and left leg weakness. 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 Crohns. Ostomy Bag placed in 09/2021. History of Any Multi-Drug Resistant Organisms: None Reported Past Surgical History: Cholecystectomy, Orthopedic Surgery Additional Past Surgical History / Comment(s): Arm surgery, right leg below knee amputation, ostomy (2021) Past Anesthesia/Blood Transfusion Reactions: No Reported Reaction Past Psychological History: No Psychological Hx Reported Smoking Status: Former smoker Past Alcohol Use History: None Reported Additional Past Alcohol Use History / Comment(s): QUIT SMOKING IN 2017, STARTED SMOKING AT AGE 16, 1PPD. Past Drug Use History: None Reported - Past Family History Father Additional Family Medical History / Comment(s): DAD IN HIS TWENTIES - CAUSE UNKNOWN. Mother Family Medical History: Diabetes Mellitus Brother(s) Family Medical History: Cancer Additional Family Medical History / Comment(s): Kidney cancer as a baby. Medications and Allergies Home Medications Medication Instructions Recorded Confirmed Type Enoxaparin [Lovenox] 80 mg SQ Q12H 04/22/23 08/26/23 History Pantoprazole [Protonix] 40 mg PO DAILY 07/07/22 11/10/22 History lisinopriL [Zestril] 2.5 mg PO DAILY PRN 07/07/22 11/10/22 History methocarbamoL [Methocarbamol] 750 mg PO TID 07/07/22 11/10/22 History Albuterol Sulfate [Albuterol 1 - 2 puff PO RT-Q4H PRN 09/10/22 11/10/22 History Sulfate Hfa] Diphenox-Atrop 2.5-0.025 mg 1 tab PO TID PRN 11/10/22 11/10/22 History [Lomotil] Ergocalciferol (Vitamin D2) 1,250 mcg PO TH 11/10/22 11/10/22 History [Drisdol (50,000 Iu)] Loperamide HCl [Loperamide] 4 mg PO Q6H PRN 11/10/22 11/10/22 History Metoprolol Tartrate [Lopressor] 12.5 mg PO BID 11/10/22 11/10/22 History Allergies Allergy/AdvReac Type Severity Reaction Status Date / Time No Known Allergies Allergy Verified 11/09/22 22:14 Surgical - Exam Vital Signs Temp Pulse Resp BP Pulse Ox 103.2 F H 129 H 20 107/49 94 L 11/09/22 22:07 11/09/22 22:07 11/09/22 22:07 11/09/22 22:07 11/09/22 22:07 Physical exam: General: Well-developed, well-nourished HEENT: Normocephalic, sclerae nonicteric Abdomen: Nontender, nondistended, large open wound oblique in nature across the right mid of abdomen to the left upper, some catheter present in the wound bed likely for control of fistula, bilious fluid in the bag without evidence of bleeding Extremities: Previous amputation noted Neuro: Alert and oriented Results - Labs 11/11/22 04:01 11/11/22 03:55 Abnormal Lab Results - Last 24 Hours (Table) 11/10/22 11/11/22 11/11/22 Range/Units 23:03 03:55 04:01 WBC 2.5 L 2.4 L (3.8-10.6) k/uL RBC 3.64 L 3.79 L (4.30-5.90) m/uL Hgb 11.3 L 12.0 L (13.0-17.5) gm/dL Hct 34.3 L 36.0 L (39.0-53.0) % Plt Count 104 L 114 L (150-450) k/uL Lymphocytes # 0.9 L (1.0-4.8) k/uL Lymphocytes # (Manual) 0.72 L (1.0-4.8) k/uL Sodium 128 L (137-145) mmol/L Glucose 70 L (74-99) mg/dL Calcium 8.1 L (8.4-10.2) mg/dL Magnesium 1.3 L (1.6-2.3) mg/dL Total Bilirubin 1.5 H (0.2-1.3) mg/dL AST 161 H (17-59) U/L ALT 114 H (4-49) U/L Total Protein 5.9 L (6.3-8.2) g/dL Albumin 2.2 L (3.5-5.0) g/dL Diabetes panel 11/11/22 Range/Units 03:55 Sodium 128 L (137-145) mmol/L Potassium 4.0 (3.5-5.1) mmol/L Chloride 100 (98-107) mmol/L Carbon Dioxide 22 (22-30) mmol/L BUN 14 (9-20) mg/dL Creatinine 0.73 (0.66-1.25) mg/dL Glucose 70 L (74-99) mg/dL Calcium 8.1 L (8.4-10.2) mg/dL AST 161 H (17-59) U/L ALT 114 H (4-49) U/L Alkaline Phosphatase 86 (38-126) U/L Total Protein 5.9 L (6.3-8.2) g/dL Albumin 2.2 L (3.5-5.0) g/dL Calcium panel 11/11/22 Range/Units 03:55 Calcium 8.1 L (8.4-10.2) mg/dL Albumin 2.2 L (3.5-5.0) g/dL Pituitary panel 11/11/22 Range/Units 03:55 Sodium 128 L (137-145) mmol/L Potassium 4.0 (3.5-5.1) mmol/L Chloride 100 (98-107) mmol/L Carbon Dioxide 22 (22-30) mmol/L BUN 14 (9-20) mg/dL Creatinine 0.73 (0.66-1.25) mg/dL Glucose 70 L (74-99) mg/dL Calcium 8.1 L (8.4-10.2) mg/dL Adrenal panel 11/11/22 Range/Units 03:55 Sodium 128 L (137-145) mmol/L Potassium 4.0 (3.5-5.1) mmol/L Chloride 100 (98-107) mmol/L Carbon Dioxide 22 (22-30) mmol/L BUN 14 (9-20) mg/dL Creatinine 0.73 (0.66-1.25) mg/dL Glucose 70 L (74-99) mg/dL Calcium 8.1 L (8.4-10.2) mg/dL Total Bilirubin 1.5 H (0.2-1.3) mg/dL AST 161 H (17-59) U/L ALT 114 H (4-49) U/L Alkaline Phosphatase 86 (38-126) U/L Total Protein 5.9 L (6.3-8.2) g/dL Albumin 2.2 L (3.5-5.0) g/dL Assessment and Plan (1) GI bleed Narrative/Plan: 47-year-old male with bleeding from ostomy and fistula site. This stopped spontaneously and per the patient occurs intermittently. Hemoglobin is stable. Patient with multiple medical issues and certainly a complex abdominal wound with fistula formation. If bleeding becomes more severe recommend transfer back to [facility] where his colorectal surgery team is located. We'll sign off. Please call if needed. Current Visit: Yes Status: Acute Code(s): K92.2 - GASTROINTESTINAL HEMORRHAGE, UNSPECIFIED SNOMED Code(s): 98070057
[2022-11-11] MEDS ORDERED: Magnesium Replacement Protocol 1 EACH MISC MISCELLANE PRN (11:07)
[2022-11-11] MEDS: MAGNESIUM SULFATE-D5W PMX 1 GM in DEXTROSE/WATER 1 100ML.BAG IVPB SCH ×4 (11:35→15:32)
--- NOTE | 2022-11-11 12:00 | P.CONS ---
History of Present Illness - Reason for Consult Consult date: 11/10/22 - History of Present Illness Patient is a 47-year-old male with a past medical history significant for chron's doseases s/p right colectomy subsequently did have anastomosis breakdown and ileostomy placement patient did have a large abdominal wound with fistulization to the abdominal wall in this patient who was admitted to this facility from 626 until 09/21/2022 patient at that point concern was for abdominal wall abscess for the patient was transferred to [facility] however the mother mentioned that the team there was not concern for any abscess and the patient was not discharged home on any antibiotics patient did have a left upper subclavian PICC line that has been there since April 2022 patient now presenting to the [facility] ER for evaluation of fever that apparently started the day before presentation to the hospital patient complaining of rigors and chills associated with it and also complaining of lightheadedness and dizziness no significant headache or URI symptoms no chest pain shortness of breath or cough did have some vague abdominal pain no nausea no vomiting with the same the patient was evaluated on presentation to the hospital patient did have a fever of 103.2 F patient was tachycardic with a heart rate of 128 patient did have a normal white count however this morning the patient is leukopenic kidney function has been normal liver enzymes mildly elevated urine was negative influenza RSV and COVID testing was negative patient did have a chest x-ray right lower lobe infiltrate patient was started on vancomycin and Zosyn infectious disease was consulted for further management of antibiotic therapy Past Medical History Past Medical History: CVA/TIA, Deep Vein Thrombosis (DVT) Additional Past Medical History / Comment(s): Progressing left upper thigh pain and swelling and left leg weakness. 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 Crohns. Ostomy Bag placed in 09/2021. History of Any Multi-Drug Resistant Organisms: None Reported Past Surgical History: Cholecystectomy, Orthopedic Surgery Additional Past Surgical History / Comment(s): Arm surgery, right leg below knee amputation, ostomy (2021) Past Anesthesia/Blood Transfusion Reactions: No Reported Reaction Past Psychological History: No Psychological Hx Reported Smoking Status: Former smoker Past Alcohol Use History: None Reported Additional Past Alcohol Use History / Comment(s): QUIT SMOKING IN 2016, STARTED SMOKING AT AGE 16, 1PPD. Past Drug Use History: None Reported - Past Family History Father Additional Family Medical History / Comment(s): DAD IN HIS TWENTIES - CAUSE UNKNOWN. Mother Family Medical History: Diabetes Mellitus Brother(s) Family Medical History: Cancer Additional Family Medical History / Comment(s): Kidney cancer as a baby. Medications and Allergies Home Medications Medication Instructions Recorded Confirmed Type Enoxaparin [Lovenox] 80 mg SQ Q12H 07/07/22 11/10/22 History Pantoprazole [Protonix] 40 mg PO DAILY 07/07/22 11/10/22 History lisinopriL [Zestril] 2.5 mg PO DAILY PRN 07/07/22 11/10/22 History methocarbamoL [Methocarbamol] 750 mg PO TID 07/07/22 11/10/22 History Albuterol Sulfate [Albuterol 1 - 2 puff PO RT-Q4H PRN 09/10/22 11/10/22 History Sulfate Hfa] Diphenox-Atrop 2.5-0.025 mg 1 tab PO TID PRN 11/10/22 11/10/22 History [Lomotil] Ergocalciferol (Vitamin D2) 1,250 mcg PO TH 11/10/22 11/10/22 History [Drisdol (50,000 Iu)] Loperamide HCl [Loperamide] 4 mg PO Q6H PRN 11/10/22 11/10/22 History Metoprolol Tartrate [Lopressor] 12.5 mg PO BID 11/10/22 11/10/22 History Allergies Allergy/AdvReac Type Severity Reaction Status Date / Time No Known Allergies Allergy Verified 11/09/22 22:14 Physical Exam Vitals: Vital Signs Temp Pulse Pulse Resp BP BP Pulse Ox 11/10/22 11:48 100.0 F H 109 H 20 85/47 93 L 11/10/22 09:03 105 H 20 108/64 92 L 11/10/22 07:39 99.1 F 116 H 20 82/42 93 L 11/10/22 05:58 128 H 20 11/10/22 05:51 102.9 F H 115/61 11/10/22 04:47 103.1 F H 128 H 20 132/84 91 L 11/10/22 04:00 112 H 18 109/68 95 11/10/22 03:00 93 18 101/43 95 11/10/22 02:28 100 11/10/22 02:08 109 H 11/10/22 02:00 111 H 18 101/48 95 11/10/22 01:11 102 H 18 88/45 97 11/10/22 00:00 107 H 18 77/33 94 L 11/09/22 23:50 99.9 F H 110 H 18 78/34 95 11/09/22 23:00 124 H 18 77/40 95 11/09/22 22:07 103.2 F H 129 H 20 107/49 94 L Intake and Output 11/09/22 11/10/22 11/10/22 22:59 06:59 14:59 Intake Total 100 Output Total 800 1200 Balance -800 -1100 Intake: Oral 100 Output: Urine 200 Stool 600 1200 Other: Voiding Method External Catheter External Catheter # Bowel Movements 600 Weight 90.718 kg 90.718 kg 90.718 kg Results CBC & Chem 7: 11/11/22 04:01 11/11/22 03:55 Labs: Abnormal Lab Results - Last 24 Hours (Table) 11/09/22 11/09/22 11/10/22 Range/Units 22:55 22:55 06:14 RBC 3.99 L (4.30-5.90) m/uL Hgb 12.6 L (13.0-17.5) gm/dL Hct 37.7 L (39.0-53.0) % Plt Count 139 L (150-450) k/uL Sodium 130 L (137-145) mmol/L BUN 27 H (9-20) mg/dL Total Bilirubin 1.9 H (0.2-1.3) mg/dL AST 111 H (17-59) U/L ALT 95 H (4-49) U/L Albumin 2.7 L (3.5-5.0) g/dL Urine Protein Trace H (Negative) Assessment and Plan Plan: 1patient presented hospital with sepsis in this patient with a fever tachycardia and leukopenia with a source questional intra-abdominal and there was concern for intra-abdominal abscess on the last visit that was not drained versus PICC line infection. 2we will obtain a CT of abdominal pelvis with contrast to rule out any intra- abdominal abscess that may need to be drained. 3we will follow-up on the blood cultures already obtained. And check inflammatory markers 4we will keep the patient on Zosyn however discontinue vancomycin to decrease risk of nephrotoxicity. We will follow on clinical condition and cultures to further adjust medication if needed Thank you for this consultation we will follow the patient along with you Dictation was produced using [employer] dictation software. please excuse any grammatical, word or spelling errors. Time with Patient: Greater than 30
[2022-11-11] MEDS: IPRATROPIUM-ALBUTEROL 3 ML NEB INHALATION SCH ×3 (12:43→21:01)
--- NOTE | 2022-11-11 12:43 | P.PN ---
Subjective 47-year-old pleasant male came in with compensative fever lightheadedness and dizziness and dizziness without any cough denied any dysuria denied any abdominal pain denied any increased diarrhea. Patient has history of Crohn's disease and bowel surgeries and has a colostomy and a subclavian central line in the left chest for TPA and patient has been on TPN and the has a central line since month of April. Patient had high-grade fevers along with hyponatremia and hypotension. Chest x-ray suspicious for right lower lobe pneumonia although it appears more atelectasis. Patient was tachycardic as well. 11/11/2022 Patient is presently on Zosyn and vancomycin without any fevers there is a concern about intra-abdominal source of infection CT of the abdomen is being obtained. Patient is hypomagnesemic magnesium will be replaced and the patient's urine sodium and worsened with IV fluids which will be discontinued at this time. Constitutional: Denied any fatigue denied any fever. Cardio vascular: denied any chest pain, palpitations Gastrointestinal denied any nausea vomiting Pulmonary: Denied any shortness of breath cough Neurologic denied any new focal deficits All inpatient medications were reviewed and appropriate changes in these medications as dictated in the interval history and assessment and plan. PHYSICAL EXAMINATION: GENERAL: The patient is alert and oriented x3, not in any acute distress. Obese HEENT: Pupils are round and equally reacting to light. EOMI. No scleral icterus. No conjunctival pallor. Normocephalic, atraumatic. No pharyngeal erythema. No thyromegaly. CARDIOVASCULAR: S1 and S2 present. No murmurs, rubs, or gallops. PULMONARY: Chest is clear to auscultation, no wheezing or crackles. ABDOMEN: Soft, nontender, nondistended, normoactive bowel sounds. No palpable organomegaly. Patient has a colostomy MUSCULOSKELETAL: No joint swelling or deformity. EXTREMITIES: No cyanosis, clubbing, or pedal edema. Right below-knee amputation NEUROLOGICAL: Gross neurological examination did not reveal any focal deficits. SKIN: No rashes. Assessment and plan -Severe sepsis: Source is intra-abdominal or central line, cranial Zosyn and vancomycin so far cultures are negative -Hyponatremia worsened with IV fluids discontinue IV fluids patient was started on fluid restriction -Hypomagnesemia magnesium will be replaced -History of Crohn's disease with the abdominal surgeries and a colostomy, p atient is on TPN -Hypertension patient is septic and hypotensive at this time DVT prophylaxis: Lovenox Objective - Vital Signs Vital signs: Vital Signs Temp 98.7 F 11/11/22 11:35 Pulse 100 11/11/22 11:35 Resp 20 11/11/22 11:35 BP 120/76 11/11/22 11:35 Pulse Ox 95 11/11/22 11:35 FiO2 Intake & Output 11/10/22 11/11/22 11/11/22 18:59 06:59 18:59 Intake Total 100 Output Total 1600 2400 1075 Balance -1500 -2400 -1075 Weight 90.718 kg Intake: Oral 100 Output: Urine 400 1400 575 Stool 1200 1000 500 Other: Voiding Method External Catheter External Catheter External Catheter - Labs CBC & Chem 7: 11/11/22 04:01 11/11/22 03:55 Labs: Abnormal Lab Results - Last 24 Hours (Table) 11/10/22 11/11/22 11/11/22 Range/Units 23:03 03:55 04:01 WBC 2.5 L 2.4 L (3.8-10.6) k/uL RBC 3.64 L 3.79 L (4.30-5.90) m/uL Hgb 11.3 L 12.0 L (13.0-17.5) gm/dL Hct 34.3 L 36.0 L (39.0-53.0) % Plt Count 104 L 114 L (150-450) k/uL Lymphocytes # 0.9 L (1.0-4.8) k/uL Lymphocytes # (Manual) 0.72 L (1.0-4.8) k/uL Sodium 128 L (137-145) mmol/L Glucose 70 L (74-99) mg/dL Calcium 8.1 L (8.4-10.2) mg/dL Magnesium 1.3 L (1.6-2.3) mg/dL Total Bilirubin 1.5 H (0.2-1.3) mg/dL AST 161 H (17-59) U/L ALT 114 H (4-49) U/L Total Protein 5.9 L (6.3-8.2) g/dL Albumin 2.2 L (3.5-5.0) g/dL
--- NOTE | 2022-11-11 15:35 | P.PN ---
Subjective Progress Note Date: 11/11/22 Principal diagnosis: fever Patient is a 47-year-old male with a past medical history significant for chron's doseases s/p right colectomy subsequently did have anastomosis breakdown and ileostomy placement patient did have a large abdominal wound with fistulization to the abdominal wall, presented to the hospital with a fever lightheadedness and dizziness. On today's evaluation that is 11/11/2022 the patient did have overall resolution of his fever last temperature was 100.7 last night no fever has been recorded since then, the patient did refuse his CT abdominal pelvis yesterday denies any chest pain shortness of breath or cough denies any worsening abdominal pain no nausea no vomiting Objective - Vital Signs Vital signs: Vital Signs Temp 98.7 F 11/11/22 11:35 Pulse 100 11/11/22 11:35 Resp 20 11/11/22 11:35 BP 120/76 11/11/22 11:35 Pulse Ox 95 11/11/22 11:35 FiO2 Intake & Output 11/10/22 11/11/22 11/11/22 18:59 06:59 18:59 Intake Total 100 Output Total 1600 2400 1075 Balance -1500 -2400 -1075 Weight 90.718 kg Intake: Oral 100 Output: Urine 400 1400 575 Stool 1200 1000 500 Other: Voiding Method External Catheter External Catheter External Catheter - Exam GENERAL DESCRIPTION: Middle-age male lying in bed in no distress RESPIRATORY SYSTEM: Unlabored breathing , decreased breath sounds at bases HEART: S1 S2 regular rate and rhythm ,no loud murmurs ABDOMEN: Soft , no tenderness EXTREMITIES: No edema feet - Labs CBC & Chem 7: 11/11/22 04:01 11/11/22 03:55 Labs: Abnormal Lab Results - Last 24 Hours (Table) 11/10/22 11/11/22 11/11/22 Range/Units 23:03 03:55 04:01 WBC 2.5 L 2.4 L (3.8-10.6) k/uL RBC 3.64 L 3.79 L (4.30-5.90) m/uL Hgb 11.3 L 12.0 L (13.0-17.5) gm/dL Hct 34.3 L 36.0 L (39.0-53.0) % Plt Count 104 L 114 L (150-450) k/uL Lymphocytes # 0.9 L (1.0-4.8) k/uL Lymphocytes # (Manual) 0.72 L (1.0-4.8) k/uL Sodium 128 L (137-145) mmol/L Glucose 70 L (74-99) mg/dL Calcium 8.1 L (8.4-10.2) mg/dL Magnesium 1.3 L (1.6-2.3) mg/dL Total Bilirubin 1.5 H (0.2-1.3) mg/dL AST 161 H (17-59) U/L ALT 114 H (4-49) U/L Total Protein 5.9 L (6.3-8.2) g/dL Albumin 2.2 L (3.5-5.0) g/dL Assessment and Plan (1) Fever Current Visit: Yes Status: Acute Code(s): R50.9 - FEVER, UNSPECIFIED SNOMED Code(s): 308575479 Plan: 1patient presented hospital with sepsis in this patient with a fever tachycardia and leukopenia with a source questional intra-abdominal and there was concern for intra-abdominal abscess on the last visit that was not drained versus PICC line infection. 2high clinical suspicion for possible abdominal source unfortunately the patient is refusing CT abdominal pelvis which will better define underlying pathology even though he is aware of the fact that not doing so can lead to missed diagnosis 3for now continue with Zosyn while waiting for the culture to finalize and monitor clinical course closely Dictation was produced using [employer] dictation software. please excuse any grammatical, word or spelling errors. Time with Patient: Less than 30
[2022-11-12] MEDS: PIPERACILLIN-TAZOBACTAM 3.375 GM in SODIUM CHLORIDE 0.9% 100 ML IVPB SCH ×3 (03:43→17:42)
[2022-11-12] MEDS ORDERED: VANCOMYCIN TROUGH DUE 1 EACH MISC MISCELLANE ONE (05:00)
[2022-11-12] MEDS: IPRATROPIUM-ALBUTEROL 3 ML NEB INHALATION SCH ×4 (08:07→21:30)
[2022-11-12] MEDS: PANTOPRAZOLE 40 MG/10 ML VIAL IV SCH (09:14)
--- NOTE | 2022-11-12 11:03 | P.PN ---
Subjective Progress Note Date: 11/12/22 47-year-old pleasant male came in with compensative fever lightheadedness and dizziness and dizziness without any cough denied any dysuria denied any abdominal pain denied any increased diarrhea. Patient has history of Crohn's disease and bowel surgeries and has a colostomy and a subclavian central line in the left chest for TPA and patient has been on TPN and the has a central line since month of April. Patient had high-grade fevers along with hyponatremia and hypotension. Chest x-ray suspicious for right lower lobe pneumonia although it appears more atelectasis. Patient was tachycardic as well. 11/11/2022 Patient is presently on Zosyn and vancomycin without any fevers there is a concern about intra-abdominal source of infection CT of the abdomen is being obtained. Patient is hypomagnesemic magnesium will be replaced and the patient's urine sodium and worsened with IV fluids which will be discontinued at this time. 11/12/2022 Patient is evaluated today resting in bed. Abdominal pelvis CT was recommended to rule out abdominal source of infection at this time patient has refused to have a CT completed. He is currently denying any abdominal pain or nausea no vomiting. His PICC line remains in place. Pulmonary blood cultures are showing gram-positive cocci in clusters with repeat pending and also blood culture from the PICC line is pending. Patient remains on antibiotics in the form of IV Zosyn and IV daptomycin and infectious disease is following closely. Labs today are currently pending. Hemodynamically he is stable. Review of Systems Constitutional: Denied any fatigue denied any fever. Cardio vascular: denied any chest pain, palpitations Gastrointestinal: denied any nausea, vomiting, diarrhea Pulmonary: Denied any shortness of breath cough Neurologic denied any new focal deficits All inpatient medications were reviewed and appropriate changes in these me dications as dictated in the interval history and assessment and plan. PHYSICAL EXAMINATION: GENERAL: The patient is alert and oriented x3, not in any acute distress. Obese HEENT: Pupils are round and equally reacting to light. EOMI. No scleral icterus. No conjunctival pallor. Normocephalic, atraumatic. No pharyngeal erythema. No thyromegaly. CARDIOVASCULAR: S1 and S2 present. No murmurs, rubs, or gallops. PULMONARY: Chest is clear to auscultation, no wheezing or crackles. ABDOMEN: Soft, nontender, nondistended, normoactive bowel sounds. No palpable organomegaly. Patient has a colostomy MUSCULOSKELETAL: No joint swelling or deformity. EXTREMITIES: No cyanosis, clubbing, or pedal edema. Right below-knee amputation NEUROLOGICAL: Gross neurological examination did not reveal any focal deficits. SKIN: No rashes. Assessment and plan -Severe sepsis: Source is intra-abdominal or central line, remains on IV Zosyn and daptomycin -Gram positive bacteremia repeat cultures are pending at this time on antibiotics as mentioned and infectious disease is following. -Hyponatremia worsened with IV fluids, remains off IV fluids and continues on 1500 ml fluid restriction and repeat labs from today are currently pending at this time. -Hypomagnesemia replaced and f/u magnesium level. -History of Crohn's disease with the abdominal surgeries and a colostomy, patient is on TPN through central line. -Hypertension patient is septic and hypotensive at this time, blood pressure is improving. -Status post right BKA -Former smoker GI prophylaxis: Protonix DVT prophylaxis: Lovenox Full Code The impression and plan of care has been dictated by Coral Medina, Nurse Practitioner as directed. Dr. Mo MD I have performed a history and physical examination and medical decision making of this patient, discussed the same with the dictator, and agree with the d ictators assessment and plan as written, documented as a scribe. Based on total visit time, I have performed more than 50% of this visit. Objective - Vital Signs Vital signs: Vital Signs Temp 98.8 F 11/11/22 21:32 Pulse 77 11/12/22 08:16 Resp 18 11/12/22 08:16 BP 118/72 11/12/22 03:47 Pulse Ox 95 11/12/22 03:47 FiO2 Intake & Output 11/11/22 11/12/22 11/12/22 18:59 06:59 18:59 Intake Total 100 250 Output Total 2650 1950 Balance -2550 -1700 Intake: Oral 100 250 Output: Urine 1150 800 Stool 1500 1150 Other: Voiding Method External Catheter External Catheter - Labs CBC & Chem 7: 11/11/22 04:01 11/11/22 03:55 Labs: Microbiology - Last 24 Hours (Table) 11/10/22 11:53 Blood Culture Gram Stain - Preliminary Blood Assessment and Plan Time with Patient: Less than 30
--- NOTE | 2022-11-12 12:06 | P.CRDCN ---
History of Present Illness Consult date: 11/12/22 History of present illness: History of Present Illness: The patient is a 47-year-old male who presented with fever, has a known history of right colectomy with an anastomotic breakdown and ileostomy. 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 He has been followed at [facility]. He presented was febrile episode and cardiology consultation was requested because of an episode of tachycardia. The patient denies any symptoms of chest discomfort, dyspnea or dizziness. He did not feel the arrhythmia. He has a known history of stroke and is status post right BKA for a blood clot although details not available. He has been on anticoagulation. He had bleeding from the ostomy on presentation. He was in the hospital in October of last year with his abdominal surgery and had SVT requiring cardioversion. He is in sinus mechanism sinus tachycardia, he had an episode of rapid heart rate that appears to be SVT. He is back in sinus mechanism at this time. His echocardiogram in October of last year showed a normal systolic function. His initial colectomy was done because of Crohn's disease. He is a nonsmoker, nondiabetic. Medications: Zestril 2.5 mg when necessary, metoprolol tartrate 12.5 mg twice a day, Lovenox 80 mg subcu every 12 hours, methocarbamol, vitamin D Review of Systems: Respiratory: No history of asthma, bronchitis or recent cough. 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 Nervous System: No seizure. Physical Examination: 47-year-old male, alert and oriented, appears older than stated age, Blood pressure 118/70, Heart rate 90 Head: Normocephalic. Eyes: Sclerae nonicteric. Neck: Good carotid upstroke, no bruit, no jugular venous distention. Lungs: Clear to auscultation. Heart: Regular rate and rhythm, S1-S2, no S3, no rub. No murmur. Abdomen: Colostomy noted, nontender, soft, large open wound Extremities: No edema on the left, post left BKA. Labs: Hemoglobin 12, WBC 2.4, platelets 114. Potassium 4.0. Sodium 128. AST 161, ALT 114. Total bilirubin 1.5. Chest x-ray suggestion of right lower lobe infiltrate EKG: None today shows supraventricular tachycardia rate to 144 probable SVT, AVNRT Impression: 1. Febrile episode was open abdominal wound and fistula 2. Tachycardia, probable SVT worsened by the infection 3. Status post right BKA 4. History of stroke Plan: 1. Resume low-dose beta kedar 2. Obtain an echocardiogram with Doppler 3. Follow potassium and magnesium 4. Depending on the results of the testing further recommendations will be made 5. Thank you for this consult we will follow with you Past Medical History Past Medical History: CVA/TIA, Deep Vein Thrombosis (DVT) Additional Past Medical History / Comment(s): Progressing left upper thigh pain and swelling and left leg weakness. 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 Crohns. Ostomy Bag placed in 09/2021. History of Any Multi-Drug Resistant Organisms: None Reported Past Surgical History: Cholecystectomy, Orthopedic Surgery Additional Past Surgical History / Comment(s): Arm surgery, right leg below knee amputation, ostomy (2021) Past Anesthesia/Blood Transfusion Reactions: No Reported Reaction Past Psychological History: No Psychological Hx Reported Smoking Status: Former smoker Past Alcohol Use History: None Reported Additional Past Alcohol Use History / Comment(s): QUIT SMOKING IN 2017, STARTED SMOKING AT AGE 16, 1PPD. Past Drug Use History: None Reported - Past Family History Father Additional Family Medical History / Comment(s): DAD IN HIS TWENTIES - CAUSE UNKNOWN. Mother Family Medical History: Diabetes Mellitus Brother(s) Family Medical History: Cancer Additional Family Medical History / Comment(s): Kidney cancer as a baby. Medications and Allergies Home Medications Medication Instructions Recorded Confirmed Type Enoxaparin [Lovenox] 80 mg SQ Q12H 07/07/22 11/10/22 History Pantoprazole [Protonix] 40 mg PO DAILY 07/07/22 11/10/22 History lisinopriL [Zestril] 2.5 mg PO DAILY PRN 07/07/22 11/10/22 History methocarbamoL [Methocarbamol] 750 mg PO TID 07/07/22 11/10/22 History Albuterol Sulfate [Albuterol 1 - 2 puff PO RT-Q4H PRN 09/10/22 11/10/22 History Sulfate Hfa] Diphenox-Atrop 2.5-0.025 mg 1 tab PO TID PRN 11/10/22 11/10/22 History [Lomotil] Ergocalciferol (Vitamin D2) 1,250 mcg PO TH 11/10/22 11/10/22 History [Drisdol (50,000 Iu)] Loperamide HCl [Loperamide] 4 mg PO Q6H PRN 11/10/22 11/10/22 History Metoprolol Tartrate [Lopressor] 12.5 mg PO BID 11/10/22 11/10/22 History Allergies Allergy/AdvReac Type Severity Reaction Status Date / Time No Known Allergies Allergy Verified 11/09/22 22:14 Physical Exam Vitals: Vital Signs Temp Pulse Pulse Resp BP Pulse Ox 11/12/22 11:32 78 18 11/12/22 11:22 80 18 11/12/22 08:16 77 18 11/12/22 08:07 73 18 11/12/22 08:00 98.4 F 135 H 18 103/68 98 11/12/22 03:47 90 20 118/72 95 11/12/22 02:00 90 11/12/22 00:31 94 20 108/64 95 11/11/22 21:32 98.8 F 91 20 109/67 95 11/11/22 21:12 88 11/11/22 21:01 89 11/11/22 20:00 91 11/11/22 16:33 90 20 11/11/22 16:23 90 20 11/11/22 15:30 98.3 F 91 20 106/68 95 11/11/22 13:49 100 11/11/22 12:53 72 18 11/11/22 12:43 74 18 Intake and Output 11/11/22 11/12/22 11/12/22 22:59 06:59 14:59 Intake Total 100 250 Output Total 2150 500 1200 Balance -2049 -250 -1200 Intake: Oral 100 250 Output: Urine 800 700 Stool 1350 500 500 Other: Voiding Method External Catheter External Catheter Results 11/11/22 04:01 11/11/22 03:55 Current Medications Generic Name Dose Route Start Last Admin Trade Name Freq PRN Reason Stop Dose Admin Acetaminophen 650 mg 11/10/22 05:57 11/10/22 21:30 Acetaminophen Tab 325 Mg Tab PO 650 mg Q6HR PRN Administration Fever and/ or Pain Albuterol/Ipratropium 3 ml 11/11/22 12:00 11/12/22 11:22 Ipratropium-Albuterol 3 Ml Neb INHALATION 3 ml RT-QID ANNIE Administration Piperacillin Sod/Tazobactam 100 mls @ 25 mls/hr 11/10/22 10:00 11/12/22 09:14 Sod 3.375 gm/ Sodium Chloride IVPB 25 mls/hr Q8H ANNIE Administration Protocol Daptomycin 550 mg/ Sodium 50 mls @ 100 mls/hr 11/11/22 22:00 11/11/22 21:43 Chloride IVPB 100 mls/hr Q24H ANNIE Administration Protocol Ketorolac Tromethamine 15 mg 11/10/22 02:04 Ketorolac 15 Mg/Ml 1 Ml Vial IVP 11/13/22 02:08 Q6HR PRN Moderate Pain (Scale 4 to 6) Metoprolol Tartrate 12.5 mg 11/12/22 12:00 Metoprolol Tartrate 25 Mg Tab PO BID [facility] Miscellaneous Information 1 each 11/11/22 11:07 Magnesium Replacement Protocol 1 Each Misc MISCELLANE DAILY PRN Per Protocol Protocol Morphine Sulfate 4 mg 11/10/22 02:04 Morphine Sulfate 4 Mg/Ml Syringe IV Q4HR PRN Severe Pain (Scale 7 to 10) Naloxone HCl 0.2 mg 11/10/22 02:04 Naloxone 0.4 Mg/Ml 1 Ml Vial IV Q2M PRN Opioid Reversal Pantoprazole Sodium 40 mg 11/10/22 09:00 11/12/22 09:14 Pantoprazole 40 Mg/10 Ml Vial IV 40 mg DAILY ANNIE Administration Intake and Output 11/11/22 11/12/22 11/12/22 22:59 06:59 14:59 Intake Total 100 250 Output Total 2150 500 1200 Balance -2049 -250 -1200 Intake: Oral 100 250 Output: Urine 800 700 Stool 1350 500 500 Other: Voiding Method External Catheter External Catheter 11/11/22 04:01 11/11/22 03:55
[2022-11-12] MEDS: METOPROLOL TARTRATE 12.5 MG TAB PO SCH ×2 (12:33→21:58)
[2022-11-12 14:43] LABS: HCT 41.2 % (39.0-53.0); HGB 13.3 gm/dL (13.0-17.5); MCH 30.1 pg (25.0-35.0); MCHC 32.3 g/dL (31.0-37.0); MCV 93.2 fL (80.0-100.0); Mean Platelet Volume 8.8; Platelet Count 143 k/uL (150-450); RBC 4.43 m/uL (4.30-5.90); RDW 14.7 % (11.5-15.5); WBC 2.9 k/uL (3.8-10.6)
[2022-11-12 15:02] LABS: African American GFR (CKD) >90 (>60 ml/min/1.73 sqM); Anion Gap 10 mmol/L; Blood Urea Nitrogen 11 mg/dL (9-20); Calcium 8.5 mg/dL (8.4-10.2); Carbon Dioxide 21 mmol/L (22-30); Chloride 100 mmol/L (98-107); Glucose 99 mg/dL (74-99); Magnesium 1.5 mg/dL (1.6-2.3); Non-African American GFR(CKD) >90 (>60 ml/min/1.73 sqM); Potassium 3.6 mmol/L (3.5-5.1); Sodium 131 mmol/L (137-145)
--- NOTE | 2022-11-12 17:41 | P.PN ---
Subjective Progress Note Date: 11/12/22 Principal diagnosis: fever Patient is a 47-year-old male with a past medical history significant for chron's doseases s/p right colectomy subsequently did have anastomosis breakdown and ileostomy placement patient did have a large abdominal wound with fistulization to the abdominal wall, presented to the hospital with a fever lightheadedness and dizziness. On today's evaluation that is 11/12/2022 the patient is afebrile today, the patient denies any chest pain shortness of breath or cough he is breathing comfortably on room air denies any worsening abdominal pain no nausea no vomiting has been reported. Patient did have a hemoglobin of 13.3, white count is 2.9, creatinine 0.67 blood cultures came back positive with coagulase negative staph Objective - Vital Signs Vital signs: Vital Signs Temp 98.4 F 11/12/22 08:00 Pulse 98 11/12/22 12:00 Resp 18 11/12/22 12:00 BP 102/63 11/12/22 12:00 Pulse Ox 93 L 11/12/22 12:00 FiO2 Intake & Output 11/11/22 11/12/22 11/12/22 18:59 06:59 18:59 Intake Total 100 250 Output Total 2650 1950 1200 Balance -2550 -1700 -1200 Intake: Oral 100 250 Output: Urine 1150 800 700 Stool 1500 1150 500 Other: Voiding Method External Catheter External Catheter - Exam GENERAL DESCRIPTION: Middle-age male lying in bed in no distress RESPIRATORY SYSTEM: Unlabored breathing , decreased breath sounds at bases HEART: S1 S2 regular rate and rhythm ,no loud murmurs ABDOMEN: Soft , no tenderness EXTREMITIES: No edema feet - Labs CBC & Chem 7: 11/12/22 14:10 11/12/22 14:10 Labs: Microbiology - Last 24 Hours (Table) 11/10/22 11:53 Blood Culture Gram Stain - Preliminary Blood Blood Culture - Preliminary Coagulase Negative Staph Assessment and Plan (1) Fever Current Visit: Yes Status: Acute Code(s): R50.9 - FEVER, UNSPECIFIED SNOMED Code(s): 782562098 Plan: 1patient presented hospital with sepsis in this patient with a fever tachycardia and leukopenia with a source questional intra-abdominal and there was concern for intra-abdominal abscess on the last visit that was not drained versus PICC line infection. 2high clinical suspicion for possible abdominal source unfortunately the patient is refusing CT abdominal pelvis which will better define underlying pathology even though he is aware of the fact that not doing so can lead to missed diagnosis, patient to continue with the Zosyn 3patient did have a positive blood culture with the staph epi questionably contamination versus related to his PICC line which has been there for more than 6 months blood culture has been pain peripherally and from the PICC line last night before starting daptomycin which will be followed and continue the patient on daptomycin at this point Dictation was produced using [employer] (PRIMP) dictation software. please excuse any grammatical, word or spelling errors. Time with Patient: Less than 30
[2022-11-12] MEDS ORDERED: Magnesium Replacement Protocol 1 EACH MISC MISCELLANE PRN (19:39)
[2022-11-12] MEDS ORDERED: Potassium Replacement Protocol 1 EACH MISC MISCELLANE PRN (19:41)
[2022-11-12] MEDS: MAGNESIUM SULFATE-D5W PMX 1 GM in DEXTROSE/WATER 1 100ML.BAG IVPB SCH ×2 (19:59→21:06)
[2022-11-12] MEDS ORDERED: POTASSIUM CHLORIDE ER 20 MEQ TAB.ER PO SCH (20:00)
[2022-11-13] MEDS: PIPERACILLIN-TAZOBACTAM 3.375 GM in SODIUM CHLORIDE 0.9% 100 ML IVPB SCH ×2 (02:59→08:43)
--- NOTE | 2022-11-13 07:24 | CA ---
Transthoracic Echo Report Name: Ponce Beckett Age: 47 Gender: M : 1975 Exam Date: 11/12/2022 12:36 Exam Location: [facility] Ht (in): 70 Wt (lb): 200 Ordering Physician: Aureliano Pearce MD ([id number]) Attending/Referring Phys: Casting Chipper Yannick Morales Procedure CPT: Indications: tachycardia Cardiac Hx: Technical Quality: Technically difficult study Contrast 1: Total Dose (mL): Contrast 2: Total Dose (mL): MEASUREMENTS (Male / Female) Normal Values 2D ECHO LV Diastolic Diameter PLAX 4.6 cm 4.2 - 5.9 / 3.9 - 5.3 cm LV Systolic Diameter PLAX 3.3 cm IVS Diastolic Thickness 1.1 cm 0.6 - 1.0 / 0.6 - 0.9 cm LVPW Diastolic Thickness 1.2 cm 0.6 - 1.0 / 0.6 - 0.9 cm LV Relative Wall Thickness 0.5 RV Internal Dim ED PLAX 2.8 cm LVOT Diameter 2.1 cm Aortic Root Diameter 2.7 cm LA Systolic Diameter LX 2.1 cm 3.0 - 4.0 / 2.7 - 3.8 cm LV Diastolic Volume MOD 4C 51.3 cm??? LV Systolic Volume MOD 4C 26.0 cm??? LV Ejection Fraction MOD 4C 49.4 % LV Cardiac Index MOD 4C 1138.0 cm???/min???m??? LV Diastolic Length 4C 7.0 cm LV Systolic Length 4C 5.9 cm DOPPLER AV Peak Velocity 165.4 cm/s AV Peak Gradient 10.9 mmHg LVOT Peak Velocity 95.5 cm/s LVOT Peak Gradient 3.6 mmHg AV Area Cont Eq pk 2.1 cm??? MV Peak Velocity 126.0 cm/s MV Peak Gradient 6.3 mmHg MV Mean Velocity 62.1 cm/s MV Mean Gradient 2.0 mmHg MV Velocity Time Integral 29.0 cm Mitral E Point Velocity 76.4 cm/s Mitral A Point Velocity 107.2 cm/s Mitral E to A Ratio 0.7 MV Deceleration Time 142.6 ms MV E' Velocity 16.5 cm/s Mitral E to MV E' Ratio 4.6 TR Peak Velocity 155.7 cm/s TR Peak Gradient 9.7 mmHg Right Ventricular Systolic Press 14.8 mmHg PV Peak Velocity 140.9 cm/s PV Peak Gradient 7.9 mmHg FINDINGS Left Ventricle Normal LV size and wall thickness. Left ventricular ejection fraction is estimated at 50-55 %. Right Ventricle Normal right ventricular size. RVSP = 17mmhg. Right Atrium Normal right atrial size. Left Atrium Normal left atrial size. Mitral Valve Structurally normal mitral valve. No mitral stenosis, regurgitation. Aortic Valve Aortic valve not well visualized. No aortic valve stenosis or regurgitation. Tricuspid Valve Structurally normal tricuspid valve. Trace TR. Pulmonic Valve Pulmonic valve not well visualized. No pulmonic regurgitation. Pericardium Normal pericardium where visualized. Aorta Normal size aortic root . CONCLUSIONS Technically difficuly and limited views. Normal LV systolic function Overall normal intracardiac valves Normal pulmonary artery systolic pressure No evidence of pericardial effusion Previewed by: Dr. Perfecto Bryant MD (Electronically Signed) Final Date: 13 November 2022 07:23
[2022-11-13] MEDS: IPRATROPIUM-ALBUTEROL 3 ML NEB INHALATION SCH ×4 (08:26→21:20)
[2022-11-13] MEDS: PANTOPRAZOLE 40 MG/10 ML VIAL IV SCH (08:43)
[2022-11-13] MEDS: METOPROLOL TARTRATE 12.5 MG TAB PO SCH ×2 (08:43→20:17)
--- NOTE | 2022-11-13 11:52 | P.PN ---
Subjective Progress Note Date: 11/13/22 History of Present Illness: The patient is a 47-year-old male who presented with fever, has a known history of right colectomy with an anastomotic breakdown and ileostomy. 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 He has been followed at [facility]. He presented was febrile episode and cardiology consultation was requested because of an episode of tachycardia. The patient denies any symptoms of chest discomfort, dyspnea or dizziness. He did not feel the arrhythmia. He has a known history of stroke and is status post right BKA for a blood clot although details not available. He has been on anticoagulation. He had bleeding from the ostomy on presentation. He was in the hospital in October of last year with his abdominal surgery and had SVT requiring cardioversion. He is in sinus mechanism sinus tachycardia, he had an episode of rapid heart rate that appears to be SVT. He is back in sinus mechanism at this time. His echocardiogram in October of last year showed a normal systolic function. His initial colectomy was done because of Crohn's disease. He is a nonsmoker, nondiabetic. Medications: Zestril 2.5 mg when necessary, metoprolol tartrate 12.5 mg twice a day, Lovenox 80 mg subcu every 12 hours, methocarbamol, vitamin D Labs: Hemoglobin 12, WBC 2.4, platelets 114. Potassium 4.0. Sodium 128. AST 161, ALT 114. Total bilirubin 1.5. Chest x-ray suggestion of right lower lobe infiltrate EKG: supraventricular tachycardia rate to 144 probable SVT, AVNRT 11/13 Patient is seen today in follow-up. He is upset this morning stating that he did not get any sleep and he wants to go home today. He denies having any chest pain no palpitations or heart pounding sensation. His heart rate has been sinus rhythm tachycardic at 140 then drops down to second-degree type II with reduced ventricular rate. He is on Lopressor 12.5 mg twice daily. Echocardiogram revealed normal LV systolic function. Yesterday, potassium 3.6 and magnesium 1.5. TSH 1.85. Repeat blood work ordered for today is pending at the time of this dictation. Magnesium was replaced yesterday. Physical Examination: 47-year-old male, alert and oriented, appears older than stated age, Blood pressure 103/65, Heart rate 87 Head: Normocephalic. Eyes: Sclerae nonicteric. Neck: Good carotid upstroke, no bruit, no jugular venous distention. Lungs: Clear to auscultation. Heart: Regular rate and rhythm, S1-S2, no S3, no rub. No murmur. Abdomen: Colostomy noted, nontender, soft, large open wound Extremities: No edema on the left, post left BKA. Impression: 1. Febrile episode was open abdominal wound and fistula 2. Tachycardia, probable SVT worsened by the infection 3. Second-degree type II block 4. Status post right BKA 5. History of stroke Plan: 1. Continue low-dose beta kedar 2. Follow potassium and magnesium 3. Continue to monitor another 24 hours 4. Thank you for this consult we will follow with you Nurse practitioner note has been reviewed, I agree with the documented findings and plan of care. Patient was seen and examined. Objective - Vital Signs Vital signs: Vital Signs Temp 98.1 F 11/13/22 03:05 Pulse 82 11/13/22 03:05 Resp 18 11/13/22 03:05 BP 105/68 11/13/22 03:05 Pulse Ox 95 11/13/22 03:05 FiO2 Intake & Output 11/12/22 11/13/22 11/13/22 18:59 06:59 18:59 Output Total 1700 2500 Balance -1700 -2500 Output: Urine 700 500 Stool 1000 2000 Other: Voiding Method External Catheter - Labs CBC & Chem 7: 11/12/22 14:10 11/12/22 14:10 Labs: Abnormal Lab Results - Last 24 Hours (Table) 11/12/22 11/12/22 Range/Units 14:10 14:10 WBC 2.9 L (3.8-10.6) k/uL Plt Count 143 L (150-450) k/uL Sodium 131 L (137-145) mmol/L Carbon Dioxide 21 L (22-30) mmol/L Magnesium 1.5 L (1.6-2.3) mg/dL Microbiology - Last 24 Hours (Table) 11/10/22 11:53 Blood Culture Gram Stain - Preliminary Blood Blood Culture - Preliminary Coagulase Negative Staph
[2022-11-13] MEDS: MORPHINE SULFATE 4 MG/ML SYRINGE IV PRN ×2 (13:38→23:39)
--- NOTE | 2022-11-13 15:30 | P.PN ---
Subjective Progress Note Date: 11/13/22 47-year-old pleasant male came in with compensative fever lightheadedness and dizziness and dizziness without any cough denied any dysuria denied any abdominal pain denied any increased diarrhea. Patient has history of Crohn's disease and bowel surgeries and has a colostomy and a subclavian central line in the left chest for TPA and patient has been on TPN and the has a central line since month of April. Patient had high-grade fevers along with hyponatremia and hypotension. Chest x-ray suspicious for right lower lobe pneumonia although it appears more atelectasis. Patient was tachycardic as well. 11/11/2022 Patient is presently on Zosyn and vancomycin without any fevers there is a concern about intra-abdominal source of infection CT of the abdomen is being obtained. Patient is hypomagnesemic magnesium will be replaced and the patient's urine sodium and worsened with IV fluids which will be discontinued at this time. 11/12/2022 Patient is evaluated today resting in bed. Abdominal pelvis CT was recommended to rule out abdominal source of infection at this time patient has refused to have a CT completed. He is currently denying any abdominal pain or nausea no vomiting. His PICC line remains in place. Pulmonary blood cultures are showing gram-positive cocci in clusters with repeat pending and also blood culture from the PICC line is pending. Patient remains on antibiotics in the form of IV Zosyn and IV daptomycin and infectious disease is following closely. Labs today are currently pending. Hemodynamically he is stable. 11/13/2022 Patient is evaluated in the cardiac stepdown unit he can be transitioned to the medical floor with telemetry. He remains in normal sinus rhythm with a controlled heart rate in the 80s. Cardiology is following for the tachycardia felt to be likely SVT worsened by the infection. He remains a low-dose of beta kedar and cardiology following. Patient continues on IV daptomycin and IV zosyn and blood culture so far showing staphylococcus epidermidis. F/U blood cultures from the PICC line and peripheral lab draw are preliminary negative at 24 hours. Patient initially had refused oral contrast so abdominal pelvis CT was cancelled. After discussion with patient he agreed to IV contrast however, he refused the oral contrast again and after going for the DC he was upset about the RN being unable to access his PICC and became agitated that security had to be notified. Abdominal pelvis CT again cancelled. Ostomy intact with copious loose stool light brown in color. Patient states this is normal for him to have large quantity of stool output. Sodium is up to 131 today. Blood pressure remains on the lower side at 103/65. Review of Systems Constitutional: Denied any fatigue denied any fever. Cardio vascular: denied any chest pain, palpitations Gastrointestinal: denied any nausea, vomiting. Reports large quantity of stool from ostomy. Pulmonary: Denied any shortness of breath cough Neurologic denied any new focal deficits All inpatient medications were reviewed and appropriate changes in these medications as dictated in the interval history and assessment and plan. PHYSICAL EXAMINATION: GENERAL: The patient is alert and oriented x3, not in any acute distress. Obese HEENT: Pupils are round and equally reacting to light. EOMI. No scleral icterus. No conjunctival pallor. Normocephalic, atraumatic. No pharyngeal erythema. No thyromegaly. CARDIOVASCULAR: S1 and S2 present. No murmurs, rubs, or gallops. PULMONARY: Chest is clear to auscultation, no wheezing or crackles. ABDOMEN: Soft, nontender, nondistended, normoactive bowel sounds. No palpable organomegaly. Patient has a colostomy MUSCULOSKELETAL: No joint swelling or deformity. EXTREMITIES: No cyanosis, clubbing, or pedal edema. Right below-knee amputation NEUROLOGICAL: Gross neurological examination did not reveal any focal deficits. Weakness. SKIN: No rashes. Assessment and plan -Severe sepsis: Source is intra-abdominal or central line, remains on IV Zosyn and daptomycin patient is refusing abdominal pelvis CT at this time it with nette or admission there was concern for an intra-abdominal abscess patient is understanding of the complications from not having the CT done. -Staphylococcus epidermidis bacteremia with repeat cultures pending at this time. Possible PICC line associated infection however unable to rule out intra-abdominal sources patient is refusing abdominal pelvis CT at this time despite multiple attempts and patient education. Refusing oral contrast also. -Mild protein calorie malnutrition patient uses PICC line for TPN on the outpatient basis. Currently with concern for PICC line infection however ok to continue to use the PICC line for continued TPN and nutritional support at this time. -Hyponatremia worsened with IV fluids, remains off IV fluids and continues on 1500 ml fluid restriction and sodium slightly improved to 131. -Hypomagnesemia replaced and f/u magnesium level. -History of Crohn's disease with the abdominal surgeries and a colostomy, patient is on TPN through central line. -Hypertension patient is septic and hypotensive at this time, blood pressure is improving. -Status post right BKA -Former smoker GI prophylaxis: Protonix DVT prophylaxis: Lovenox Full Code The impression and plan of care has been dictated by Coral Medina, Nurse Practitioner as directed. Dr. Mo MD I have performed a history and physical examination and medical decision making of this patient, discussed the same with the dictator, and agree with the dictators assessment and plan as written, documented as a scribe. Based on total visit time, I have performed more than 50% of this visit. Objective - Vital Signs Vital signs: Vital Signs Temp 98.1 F 11/13/22 08:00 Pulse 80 11/13/22 08:38 Resp 18 11/13/22 08:38 BP 103/65 11/13/22 08:00 Pulse Ox 95 11/13/22 08:00 FiO2 Intake & Output 11/12/22 11/13/22 11/13/22 18:59 06:59 18:59 Intake Total 0 Output Total 1700 2500 Balance -1700 -2500 0 Weight 90.718 kg Intake: Oral 0 Output: Urine 700 500 Stool 1000 2000 Other: Voiding Method External Catheter # Voids 1 - Labs CBC & Chem 7: 11/12/22 14:10 11/12/22 14:10 Labs: Microbiology - Last 24 Hours (Table) 11/11/22 21:31 Blood Culture - Preliminary Blood 11/11/22 21:43 Blood Culture - Preliminary Blood 11/10/22 11:53 Blood Culture Gram Stain - Final Blood Blood Culture - Final Staphylococcus epidermidis Assessment and Plan Time with Patient: Greater than 30
[2022-11-13 15:42] LABS: Basophils % (A) 0 %; Eosinophils # (A) 0.1 k/uL (0-0.7); Eosinophils % (A) 2 %; HCT 42.2 % (39.0-53.0); HGB 13.6 gm/dL (13.0-17.5); Hypochromasia Slight; Lymphocytes # (A) 1.8 k/uL (1.0-4.8); Lymphocytes % (A) 45 %; MCH 30.6 pg (25.0-35.0); MCHC 32.3 g/dL (31.0-37.0); MCV 94.9 fL (80.0-100.0); Mean Platelet Volume 8.7; Monocytes # (A) 0.2 k/uL (0-1.0); Monocytes % (A) 6 %; Neutrophils # (A) 1.8 k/uL (1.3-7.7); Neutrophils % (A) 44 %; Platelet Count 155 k/uL (150-450); RBC 4.45 m/uL (4.30-5.90); RDW 14.3 % (11.5-15.5)
[2022-11-13 16:13] LABS: African American GFR (CKD) >90 (>60 ml/min/1.73 sqM); Anion Gap 9 mmol/L; Blood Urea Nitrogen 10 mg/dL (9-20); Calcium 8.8 mg/dL (8.4-10.2); Carbon Dioxide 25 mmol/L (22-30); Chloride 101 mmol/L (98-107); Glucose 83 mg/dL (74-99); Magnesium 1.8 mg/dL (1.6-2.3); Non-African American GFR(CKD) >90 (>60 ml/min/1.73 sqM); Potassium 3.5 mmol/L (3.5-5.1); Sodium 135 mmol/L (137-145)
--- NOTE | 2022-11-13 17:06 | P.PN ---
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 On today's evaluation that is 11/13/2022 the patient remains to be afebrile, the patient denies any chest pain shortness of breath or cough, the patient is breathing comfortably on room air , the patient denies any worsening abdominal pain no nausea no vomiting has been reported. Patient did have a hemoglobin of 13.6, white count is 4.0, creatinine is 0.74 blood cultures came back positive with coagulase negative staph that is oxacillin sensitive Objective - Vital Signs Vital signs: Vital Signs Temp 98.1 F 11/13/22 08:00 Pulse 80 11/13/22 08:38 Resp 18 11/13/22 08:38 BP 103/65 11/13/22 08:00 Pulse Ox 95 11/13/22 08:00 FiO2 Intake & Output 11/12/22 11/13/22 11/13/22 18:59 06:59 18:59 Intake Total 0 Output Total 1700 2500 Balance -1700 -2500 0 Weight 90.718 kg Intake: Oral 0 Output: Urine 700 500 Stool 1000 2000 Other: Voiding Method External Catheter # Voids 1 - Exam GENERAL DESCRIPTION: Middle-age male lying in bed in no distress RESPIRATORY SYSTEM: Unlabored breathing , decreased breath sounds at bases HEART: S1 S2 regular rate and rhythm ,no loud murmurs ABDOMEN: Soft , no tenderness EXTREMITIES: No edema feet - Labs CBC & Chem 7: 11/13/22 14:59 11/13/22 14:59 Labs: Abnormal Lab Results - Last 24 Hours (Table) 11/12/22 11/12/22 Range/Units 14:10 14:10 WBC 2.9 L (3.8-10.6) k/uL Plt Count 143 L (150-450) k/uL Sodium 131 L (137-145) mmol/L Carbon Dioxide 21 L (22-30) mmol/L Magnesium 1.5 L (1.6-2.3) mg/dL Microbiology - Last 24 Hours (Table) 11/11/22 21:31 Blood Culture - Preliminary Blood 11/11/22 21:43 Blood Culture - Preliminary Blood 11/10/22 11:53 Blood Culture Gram Stain - Final Blood Blood Culture - Final Staphylococcus epidermidis Assessment and Plan (1) Fever Current Visit: Yes Status: Acute Code(s): R50.9 - FEVER, UNSPECIFIED SNOMED Code(s): 519349633 Plan: 1patient presented hospital with sepsis in this patient with a fever tachycardia and leukopenia with a source questional intra-abdominal and there was concern for intra-abdominal abscess on the last visit that was not drained versus PICC line infection. 2high clinical suspicion for possible abdominal source unfortunately the patient is refusing CT abdominal pelvis which will better define underlying pathology even though he is aware of the fact that not doing so can lead to miss ed diagnosis 3patient did have a positive blood culture with the staph epi questionably contamination versus related to his PICC line which has been there for more than 6 months blood culture has been pain peripherally and from the PICC line which are currently pending 4-with the coagulase negative staph oxacillin sensitive we will discontinue Zosyn and daptomycin start the patient on Unasyn and monitor clinical course closely Dictation was produced using [employer] dictation software. please excuse any grammatical, word or spelling errors. Time with Patient: Greater than 30
[2022-11-13] MEDS: AMPICILLIN-SULBACTAM 3 GM in SODIUM CHLORIDE 0.9% 100 ML IVPB SCH ×2 (17:53→23:32)
[2022-11-14] MEDS: MORPHINE SULFATE 4 MG/ML SYRINGE IV PRN ×2 (03:49→09:05)
[2022-11-14] MEDS: AMPICILLIN-SULBACTAM 3 GM in SODIUM CHLORIDE 0.9% 100 ML IVPB SCH ×3 (05:57→16:28)
[2022-11-14] MEDS: IPRATROPIUM-ALBUTEROL 3 ML NEB INHALATION SCH ×4 (07:59→19:54)
[2022-11-14] MEDS: PANTOPRAZOLE 40 MG/10 ML VIAL IV SCH (09:07)
[2022-11-14] MEDS: METOPROLOL TARTRATE 12.5 MG TAB PO SCH ×2 (09:08→21:06)
[2022-11-14] MEDS ORDERED: traMADol 50 MG TAB PO PRN (09:44)
[2022-11-14] MEDS ORDERED: MAGNESIUM SULFATE-D5W PMX 1 GM in DEXTROSE/WATER 1 100ML.BAG IVPB ONE (09:45)
[2022-11-14] MEDS ORDERED: POTASSIUM CHLORIDE ER 20 MEQ TAB.ER PO STA (09:45)
--- NOTE | 2022-11-14 09:54 | P.PN ---
Subjective Progress Note Date: 11/14/22 History of Present Illness: The patient is a 47-year-old male who presented with fever, has a known history of right colectomy with an anastomotic breakdown and ileostomy. 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 He has been followed at [facility]. He presented was febrile episode and cardiology consultation was requested because of an episode of tachycardia. The patient denies any symptoms of chest discomfort, dyspnea or dizziness. He did not feel the arrhythmia. He has a known history of stroke and is status post right BKA for a blood clot although details not available. He has been on anticoagulation. He had bleeding from the ostomy on presentation. He was in the hospital in October of last year with his abdominal surgery and had SVT requiring cardioversion. He is in sinus mechanism sinus tachycardia, he had an episode of rapid heart rate that appears to be SVT. He is back in sinus mechanism at this time. His echocardiogram in October of last year showed a normal systolic function. His initial colectomy was done because of Crohn's disease. He is a nonsmoker, nondiabetic. Medications: Zestril 2.5 mg when necessary, metoprolol tartrate 12.5 mg twice a day, Lovenox 80 mg subcu every 12 hours, methocarbamol, vitamin D Labs: Hemoglobin 12, WBC 2.4, platelets 114. Potassium 4.0. Sodium 128. AST 161, ALT 114. Total bilirubin 1.5. Chest x-ray suggestion of right lower lobe infiltrate EKG: supraventricular tachycardia rate to 144 probable SVT, AVNRT 11/13 Patient is seen today in follow-up. He is upset this morning stating that he did not get any sleep and he wants to go home today. He denies having any chest pain no palpitations or heart pounding sensation. His heart rate has been sinus rhythm tachycardic at 140 then drops down to second-degree type II with reduced ventricular rate. He is on Lopressor 12.5 mg twice daily. Echocardiogram revealed normal LV systolic function. Yesterday, potassium 3.6 and magnesium 1.5. TSH 1.85. Repeat blood work ordered for today is pending at the time of this dictation. Magnesium was replaced yesterday. 11/14 The patient appears to be feeling better today. He denies having any chest pain, palpitations. Heart rate is running in the 80s and 90s, blood pressure 120/75. No episodes of second-degree heart block on telemetry and patient has been maintained on Lopressor 12.5 mg twice daily. Blood work from yesterday revealed potassium of 3.5 and magnesium 1.8. Physical Examination: 47-year-old male, alert and oriented, appears older than stated age, Blood pressure 103/65, Heart rate 87 Head: Normocephalic. Eyes: Sclerae nonicteric. Neck: Good carotid upstroke, no bruit, no jugular venous distention. Lungs: Clear to auscultation. Heart: Regular rate and rhythm, S1-S2, no S3, no rub. No murmur. Abdomen: Colostomy noted, nontender, soft, large open wound Extremities: No edema on the left, post left BKA. Impression: 1. Febrile episode was open abdominal wound and fistula 2. Tachycardia, probable SVT worsened by the infection 3. Second-degree type II block 4. Status post right BKA 5. History of stroke Plan: 1. Continue low-dose beta kedar 2. Follow potassium and magnesium 3. Cardiology will sign off this case and follow on an as-needed basis. Please reconsult for any new concerns. Nurse practitioner note has been reviewed, I agree with the documented findings and plan of care. Patient was seen and examined. Objective - Vital Signs Vital signs: Vital Signs Temp 97.7 F 11/14/22 08:00 Pulse 84 11/14/22 08:14 Resp 18 11/14/22 08:00 BP 120/75 11/14/22 08:00 Pulse Ox 93 L 11/14/22 08:00 FiO2 Intake & Output 11/13/22 11/14/22 11/14/22 18:59 06:59 18:59 Intake Total 240 0 Output Total 1350 3550 250 Balance -1110 -5170 -250 Weight 90.718 kg Intake: Oral 240 0 Output: Urine 200 Stool 1350 3350 250 Other: Voiding Method External Catheter # Voids 1 1 - Labs CBC & Chem 7: 11/13/22 14:59 11/13/22 14:59 Labs: Abnormal Lab Results - Last 24 Hours (Table) 11/13/22 Range/Units 14:59 Sodium 135 L (137-145) mmol/L Microbiology - Last 24 Hours (Table) 11/11/22 21:31 Blood Culture - Preliminary Blood 11/11/22 21:43 Blood Culture - Preliminary Blood 11/10/22 11:53 Blood Culture Gram Stain - Final Blood Blood Culture - Final Staphylococcus epidermidis
[2022-11-14] MEDS: ENOXAPARIN 80 MG/0.8 ML SYRINGE SQ SCH ×2 (11:42→21:06)
--- NOTE | 2022-11-14 12:19 | P.PN ---
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 On today's evaluation that is 11/14/2022 the patient continues to be afebrile, the patient denies any chest pain shortness of breath or cough, the patient is breathing comfortably on room air , the patient denies abdominal pain no nausea no vomiting and has been tolerating his diet Patient did have a hemoglobin of 13.6, white count is 4.0 , creatinine is 0.74 as of yesterday no blood draw today, blood cultures came back positive with coagulase negative staph that is oxacillin sensitive Objective - Vital Signs Vital signs: Vital Signs Temp 97.7 F 11/14/22 08:00 Pulse 84 11/14/22 08:14 Resp 18 11/14/22 08:00 BP 120/75 11/14/22 08:00 Pulse Ox 93 L 11/14/22 08:00 FiO2 Intake & Output 11/13/22 11/14/22 11/14/22 18:59 06:59 18:59 Intake Total 240 0 Output Total 1350 3550 250 Balance -1110 -3550 -250 Weight 90.718 kg Intake: Oral 240 0 Output: Urine 200 Stool 1350 3350 250 Other: Voiding Method External Catheter # Voids 1 1 - Exam GENERAL DESCRIPTION: Middle-age male lying in bed in no distress RESPIRATORY SYSTEM: Unlabored breathing , decreased breath sounds at bases HEART: S1 S2 regular rate and rhythm ,no loud murmurs ABDOMEN: Soft , no tenderness EXTREMITIES: No edema feet - Labs CBC & Chem 7: 11/13/22 14:59 11/13/22 14:59 Labs: Abnormal Lab Results - Last 24 Hours (Table) 11/13/22 Range/Units 14:59 Sodium 135 L (137-145) mmol/L Microbiology - Last 24 Hours (Table) 11/11/22 21:31 Blood Culture - Preliminary Blood 11/11/22 21:43 Blood Culture - Preliminary Blood 11/10/22 11:53 Blood Culture Gram Stain - Final Blood Blood Culture - Final Staphylococcus epidermidis Assessment and Plan (1) Fever Current Visit: Yes Status: Acute Code(s): R50.9 - FEVER, UNSPECIFIED SNOMED Code(s): 530017686 Plan: 1patient presented hospital with sepsis in this patient with a fever tachycardia and leukopenia with a source questional intra-abdominal and there was concern for intra-abdominal abscess on the last visit that was not drained versus PICC line infection. 2high clinical suspicion for possible abdominal source unfortunately the patient is refusing CT abdominal pelvis which will better define underlying pathology , primary team to talk to the patient again for a CT abdominal pelvis 3patient did have a positive blood culture with the staph epi questionably contamination versus related to his PICC line which has been there for more than 6 months blood culture has been repeated peripherally and from the PICC line which are so far negative 4-with the coagulase negative staph oxacillin sensitive patient to continue with Unasyn and monitor clinical course closely Dictation was produced using [employer] dictation software. please excuse any grammatical, word or spelling errors. Time with Patient: Less than 30
--- NOTE | 2022-11-14 15:56 | P.PN ---
Subjective Progress Note Date: 11/14/22 47-year-old pleasant male came in with compensative fever lightheadedness and dizziness and dizziness without any cough denied any dysuria denied any abdominal pain denied any increased diarrhea. Patient has history of Crohn's disease and bowel surgeries and has a colostomy and a subclavian central line in the left chest for TPA and patient has been on TPN and the has a central line since month of April. Patient had high-grade fevers along with hyponatremia and hypotension. Chest x-ray suspicious for right lower lobe pneumonia although it appears more atelectasis. Patient was tachycardic as well. 11/11/2022 Patient is presently on Zosyn and vancomycin without any fevers there is a concern about intra-abdominal source of infection CT of the abdomen is being obtained. Patient is hypomagnesemic magnesium will be replaced and the patient's urine sodium and worsened with IV fluids which will be discontinued at this time. 11/12/2022 Patient is evaluated today resting in bed. Abdominal pelvis CT was recommended to rule out abdominal source of infection at this time patient has refused to have a CT completed. He is currently denying any abdominal pain or nausea no vomiting. His PICC line remains in place. Pulmonary blood cultures are showing gram-positive cocci in clusters with repeat pending and also blood culture from the PICC line is pending. Patient remains on antibiotics in the form of IV Zosyn and IV daptomycin and infectious disease is following closely. Labs today are currently pending. Hemodynamically he is stable. 11/13/2022 Patient is evaluated in the cardiac stepdown unit he can be transitioned to the medical floor with telemetry. He remains in normal sinus rhythm with a controlled heart rate in the 80s. Cardiology is following for the tachycardia felt to be likely SVT worsened by the infection. He remains a low-dose of beta kedar and cardiology following. Patient continues on IV daptomycin and IV zosyn and blood culture so far showing staphylococcus epidermidis. F/U blood cultures from the PICC line and peripheral lab draw are preliminary negative at 24 hours. Patient initially had refused oral contrast so abdominal pelvis CT was cancelled. After discussion with patient he agreed to IV contrast however, he refused the oral contrast again and after going for the DC he was upset about the RN being unable to access his PICC and became agitated that security had to be notified. Abdominal pelvis CT again cancelled. Ostomy intact with copious loose stool light brown in color. Patient states this is normal for him to have large quantity of stool output. Sodium is up to 131 today. Blood pressure remains on the lower side at 103/65. 11/14/2022 Patient is evaluated today in the cardiac stepdown unit. Transition to medical surgical with telemetry. He is agreeing to undergo abdominal pelvis CT with IV contrast over states that the staff to do the abdominal pelvis CT must be different than the day prior which there is still the same staff working. States that he will not go down for abdominal pelvis CT otherwise. Cultures showing Staphylococcus epidermidis with medical sensitivity is available. Repeat blood cultures are currently pending at this time. Infectious disease is following and patient does remain on IV Unasyn. He is resumed on his home antidiarrheals. Labs today showed normalized white count, sodium up to 135. Review of Systems Constitutional: Denied any fatigue denied any fever. Cardio vascular: denied any chest pain, palpitations Gastrointestinal: denied any nausea, vomiting. Reports large quantity of stool from ostomy. Pulmonary: Denied any shortness of breath cough Neurologic denied any new focal deficits All inpatient medications were reviewed and appropriate changes in these medications as dictated in the interval history and assessment and plan. PHYSICAL EXAMINATION: GENERAL: The patient is alert and oriented x3, not in any acute distress. Obese HEENT: Pupils are round and equally reacting to light. EOMI. No scleral icterus. No conjunctival pallor. Normocephalic, atraumatic. No pharyngeal erythema. No thyromegaly. CARDIOVASCULAR: S1 and S2 present. No murmurs, rubs, or gallops. PULMONARY: Chest is clear to auscultation, no wheezing or crackles. ABDOMEN: Soft, nontender, nondistended, normoactive bowel sounds. No palpable organomegaly. Patient has a colostomy MUSCULOSKELETAL: No joint swelling or deformity. EXTREMITIES: No cyanosis, clubbing, or pedal edema. Right below-knee amputation NEUROLOGICAL: Gross neurological examination did not reveal any focal deficits. Weakness. SKIN: No rashes. Assessment and plan -Severe sepsis: Source is intra-abdominal or central line, remains on IV Zosyn and daptomycin patient is refusing abdominal pelvis CT at this time it with prior admission there was concern for an intra-abdominal abscess patient is understanding of the complications from not having the CT done. Patient is again refusing the abdominal pelvis CT this is discussed with ID. -Staphylococcus epidermidis bacteremia with repeat cultures pending at this time . Possible PICC line associated infection however unable to rule out intra- abdominal sources patient is refusing abdominal pelvis CT at this time despite multiple attempts and patient education. Refusing oral contrast also. -Mild protein calorie malnutrition patient uses PICC line for TPN on the out patient basis. Currently with concern for PICC line infection however ok to continue to use the PICC line for continued TPN and nutritional support at this time. -Hyponatremia worsened with IV fluids, remains off IV fluids and continues on 1500 ml fluid restriction and sodium slightly improved to 131. -Hypomagnesemia replaced and f/u magnesium level. -History of Crohn's disease with the abdominal surgeries and a colostomy, patient is on TPN through central line. -Hypertension patient is septic and hypotensive at this time, blood pressure is improving. -Status post right BKA -Former smoker GI prophylaxis: Protonix DVT prophylaxis: Lovenox Full Code The impression and plan of care has been dictated by Coral Medina, Nurse Practitioner as directed. Dr. Mo MD I have performed a history and physical examination and medical decision making of this patient, discussed the same with the dictator, and agree with the dictators assessment and plan as written, documented as a scribe. Based on total visit time, I have performed more than 50% of this visit. Objective - Vital Signs Vital signs: Vital Signs Temp 97.7 F 11/14/22 08:00 Pulse 84 11/14/22 08:14 Resp 18 11/14/22 08:00 BP 120/75 11/14/22 08:00 Pulse Ox 93 L 11/14/22 08:00 FiO2 Intake & Output 11/13/22 11/14/22 11/14/22 18:59 06:59 18:59 Intake Total 240 0 Output Total 1350 3550 250 Balance -1110 -3550 -250 Weight 90.718 kg Intake: Oral 240 0 Output: Urine 200 Stool 1350 3350 250 Other: Voiding Method External Catheter # Voids 1 1 - Labs CBC & Chem 7: 11/13/22 14:59 11/13/22 14:59 Labs: Abnormal Lab Results - Last 24 Hours (Table) 11/13/22 Range/Units 14:59 Sodium 135 L (137-145) mmol/L Microbiology - Last 24 Hours (Table) 11/11/22 21:31 Blood Culture - Preliminary Blood 11/11/22 21:43 Blood Culture - Preliminary Blood 11/10/22 11:53 Blood Culture Gram Stain - Final Blood Blood Culture - Final Staphylococcus epidermidis Assessment and Plan Time with Patient: Less than 30
[2022-11-14] MEDS: methocarbamoL 750 MG TAB PO SCH ×2 (16:28→21:06)
[2022-11-14 23:18] LABS: ALT 163 U/L (4-49); AST 139 U/L (17-59); African American GFR (CKD) >90 (>60 ml/min/1.73 sqM); Albumin 3.3 g/dL (3.5-5.0); Alkaline Phosphatase 165 U/L (38-126); Anion Gap 10 mmol/L; Blood Urea Nitrogen 7 mg/dL (9-20); Calcium 9.1 mg/dL (8.4-10.2); Carbon Dioxide 25 mmol/L (22-30); Chloride 100 mmol/L (98-107); Glucose 97 mg/dL (74-99); Non-African American GFR(CKD) >90 (>60 ml/min/1.73 sqM); Potassium 3.6 mmol/L (3.5-5.1); Sodium 135 mmol/L (137-145); Total Bilirubin 1.6 mg/dL (0.2-1.3)
[2022-11-15] MEDS: AMPICILLIN-SULBACTAM 3 GM in SODIUM CHLORIDE 0.9% 100 ML IVPB SCH ×3 (00:03→11:05)
[2022-11-15] MEDS: ZOLPIDEM 5 MG TAB PO PRN ×2 (00:14→23:42)
[2022-11-15] MEDS: PANTOPRAZOLE 40 MG/10 ML VIAL IV SCH (07:57)
[2022-11-15] MEDS: METOPROLOL TARTRATE 12.5 MG TAB PO SCH ×2 (07:57→20:38)
[2022-11-15] MEDS: methocarbamoL 750 MG TAB PO SCH ×3 (07:57→20:38)
[2022-11-15] MEDS: ENOXAPARIN 80 MG/0.8 ML SYRINGE SQ SCH ×2 (07:57→20:38)
[2022-11-15] MEDS ORDERED: ERGOCALCIFEROL 1,250 MCG (50,000 IU) CAPSULE PO SCH (09:00)
[2022-11-15] MEDS: IPRATROPIUM-ALBUTEROL 3 ML NEB INHALATION SCH ×4 (09:29→19:47)
[2022-11-15 11:00] LABS: Basophils % (A) 0 %; Eosinophils # (A) 0.1 k/uL (0-0.7); Eosinophils % (A) 3 %; HCT 44.9 % (39.0-53.0); Hypochromasia Slight; Lymphocytes # (A) 2.3 k/uL (1.0-4.8); Lymphocytes % (A) 46 %; MCH 29.7 pg (25.0-35.0); MCHC 31.2 g/dL (31.0-37.0); MCV 95.3 fL (80.0-100.0); Mean Platelet Volume 9.4; Monocytes # (A) 0.3 k/uL (0-1.0); Monocytes % (A) 6 %; Neutrophils # (A) 2.1 k/uL (1.3-7.7); Neutrophils % (A) 43 %; Platelet Count 228 k/uL (150-450); RDW 14.2 % (11.5-15.5)
[2022-11-15 11:25] LABS: ALT 156 U/L (4-49); AST 138 U/L (17-59); African American GFR (CKD) >90 (>60 ml/min/1.73 sqM); Albumin 3.2 g/dL (3.5-5.0); Alkaline Phosphatase 162 U/L (38-126); Anion Gap 10 mmol/L; Blood Urea Nitrogen 7 mg/dL (9-20); Calcium 9.1 mg/dL (8.4-10.2); Carbon Dioxide 22 mmol/L (22-30); Chloride 104 mmol/L (98-107); Glucose 101 mg/dL (74-99); Non-African American GFR(CKD) >90 (>60 ml/min/1.73 sqM); Potassium 3.4 mmol/L (3.5-5.1); Sodium 136 mmol/L (137-145); Total Bilirubin 1.5 mg/dL (0.2-1.3); Total Protein 7.7 g/dL (6.3-8.2)
[2022-11-15] MEDS ORDERED: MAGNESIUM SULFATE-D5W PMX 1 GM in DEXTROSE/WATER 1 100ML.BAG IVPB ONE (11:27)
[2022-11-15] MEDS: POTASSIUM CHLORIDE ER 20 MEQ TAB.ER PO SCH (11:46)
--- NOTE | 2022-11-15 12:53 | P.PN ---
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 On today's evaluation that is 11/15/2022 the patient denies any fever or any chills, the patient is breathing comfortably on room air, the patient denies any chest pain shortness of breath or cough, the patient denies abdominal pain no nausea no vomiting and has been tolerating his diet Patient white count is 5.0, creatinine 0.78 initial blood cultures only one set on 826 is staph epi oxacillin sensitive blood culture repeated on 11/11/2022 as well as 11/13/2022 has been negative, patient refused CT of abdominal pelvis again Objective - Vital Signs Vital signs: Vital Signs Temp 97.9 F 11/15/22 07:41 Pulse 84 11/15/22 09:38 Resp 16 11/15/22 07:41 BP 124/79 11/15/22 07:41 Pulse Ox 97 11/15/22 07:41 FiO2 Intake & Output 11/14/22 11/15/22 11/15/22 18:59 06:59 18:59 Intake Total 0 0 Output Total 250 2350 900 Balance -250 -2350 -900 Intake: Oral 0 0 Output: Urine 650 300 Stool 250 1700 600 Other: Voiding Method External Catheter External Catheter # Voids 1 - Exam GENERAL DESCRIPTION: Middle-age male lying in bed in no distress RESPIRATORY SYSTEM: Unlabored breathing , decreased breath sounds at bases HEART: S1 S2 regular rate and rhythm ,no loud murmurs ABDOMEN: Soft , no tenderness EXTREMITIES: No edema feet - Labs CBC & Chem 7: 11/15/22 07:47 11/15/22 07:47 Labs: Abnormal Lab Results - Last 24 Hours (Table) 11/14/22 Range/Units 22:34 Sodium 135 L (137-145) mmol/L BUN 7 L (9-20) mg/dL Total Bilirubin 1.6 H (0.2-1.3) mg/dL AST 139 H (17-59) U/L ALT 163 H (4-49) U/L Alkaline Phosphatase 165 H (38-126) U/L Albumin 3.3 L (3.5-5.0) g/dL Microbiology - Last 24 Hours (Table) 11/13/22 14:59 Blood Culture - Preliminary Blood 11/11/22 21:31 Blood Culture - Preliminary Blood 11/11/22 21:43 Blood Culture - Preliminary Blood Assessment and Plan (1) Fever Current Visit: Yes Status: Acute Code(s): R50.9 - FEVER, UNSPECIFIED SNOMED Code(s): 096682205 Plan: 1patient presented hospital with sepsis in this patient with a fever tachycardia and leukopenia with a source questional intra-abdominal and there was concern for intra-abdominal abscess on the last visit that was not drained versus PICC line infection. 2high clinical suspicion for possible abdominal source unfortunately the patient continued to refuse CT abdominal pelvis did explain to the patient in simple [place] without CT we cannot rule out any intra-abdominal abscess 3-patient did have a positive blood culture with the coagulase negative staph oxacillin sensitive which could be possible contaminated as only one set is positive and repeat has been negative however as he did not have any other focus for infection we will direct antibiotic therapy mostly towards positive blood culture, he has been given the option of removal of the current PICC line patient seemed to be reluctant antibiotic adjusted to cefazolin for positive blood culture with staph epi oxacillin sensitive, the patient prognosis remains to be guarded keeping in mind the patient continued to refuse treatment Dictation was produced using [employer] dictation software. please excuse any grammatical, word or spelling errors. Time with Patient: Less than 30
[2022-11-15] MEDS: DIPHENOX-ATROP 2.5-0.025 MG 1 EACH TAB PO PRN (14:38)
[2022-11-15] MEDS: LOPERAMIDE 2 MG CAP PO PRN ×2 (14:40→20:38)
--- NOTE | 2022-11-15 15:41 | P.PN ---
Subjective Progress Note Date: 11/15/22 47-year-old pleasant male came in with compensative fever lightheadedness and dizziness and dizziness without any cough denied any dysuria denied any abdominal pain denied any increased diarrhea. Patient has history of Crohn's disease and bowel surgeries and has a colostomy and a subclavian central line in the left chest for TPA and patient has been on TPN and the has a central line since month of April. Patient had high-grade fevers along with hyponatremia and hypotension. Chest x-ray suspicious for right lower lobe pneumonia although it appears more atelectasis. Patient was tachycardic as well. 11/11/2022 Patient is presently on Zosyn and vancomycin without any fevers there is a concern about intra-abdominal source of infection CT of the abdomen is being obtained. Patient is hypomagnesemic magnesium will be replaced and the patient's urine sodium and worsened with IV fluids which will be discontinued at this time. 11/12/2022 Patient is evaluated today resting in bed. Abdominal pelvis CT was recommended to rule out abdominal source of infection at this time patient has refused to have a CT completed. He is currently denying any abdominal pain or nausea no vomiting. His PICC line remains in place. Pulmonary blood cultures are showing gram-positive cocci in clusters with repeat pending and also blood culture from the PICC line is pending. Patient remains on antibiotics in the form of IV Zosyn and IV daptomycin and infectious disease is following closely. Labs today are currently pending. Hemodynamically he is stable. 11/13/2022 Patient is evaluated in the cardiac stepdown unit he can be transitioned to the medical floor with telemetry. He remains in normal sinus rhythm with a controlled heart rate in the 80s. Cardiology is following for the tachycardia felt to be likely SVT worsened by the infection. He remains a low-dose of beta kedar and cardiology following. Patient continues on IV daptomycin and IV zosyn and blood culture so far showing staphylococcus epidermidis. F/U blood cultures from the PICC line and peripheral lab draw are preliminary negative at 24 hours. Patient initially had refused oral contrast so abdominal pelvis CT was cancelled. After discussion with patient he agreed to IV contrast however, he refused the oral contrast again and after going for the DC he was upset about the RN being unable to access his PICC and became agitated that security had to be notified. Abdominal pelvis CT again cancelled. Ostomy intact with copious loose stool light brown in color. Patient states this is normal for him to have large quantity of stool output. Sodium is up to 131 today. Blood pressure remains on the lower side at 103/65. 11/14/2022 Patient is evaluated today in the cardiac stepdown unit. Transition to medical surgical with telemetry. He is agreeing to undergo abdominal pelvis CT with IV contrast over states that the staff to do the abdominal pelvis CT must be different than the day prior which there is still the same staff working. States that he will not go down for abdominal pelvis CT otherwise. Cultures showing Staphylococcus epidermidis with medical sensitivity is available. Repeat blood cultures are currently pending at this time. Infectious disease is following and patient does remain on IV Unasyn. He is resumed on his home antidiarrheals. Labs today showed normalized white count, sodium up to 135. 11/15/2022 Patient is evaluated today resting in bed. He continues to refuse abdominal pelvis CT upon further discussion. Patient states, "leave me alone." Upon evaluation with the medical attending physician patient states he is agreeable to the CT scan. This was discussed prior with ID upon patient refusal and as unable to completely rule out abdominal abscess the recommendation was given for oral keflex for 7 days of therapy. Patient was reluctant for PICC line removal and OK to uilize PICC for TPN dietary reconsulted for this and patient will be resumed on TPN. Discharge will be held overnight for homecare to resume the TPN outpatient. Additionally LFTs remain elevated and liver ultrasound has been ordered which will be completed around 6pm this evening. White count normal today at 5.0. Hemoglobin stable. Sodium 135, potassium 3.4, magnesium 1.9. Total bili 1.5, AST 138, ALT 156, alk phos 162. Review of Systems Constitutional: Denied any fatigue denied any fever. Cardio vascular: denied any chest pain, palpitations Gastrointestinal: denied any nausea, vomiting. Reports large quantity of stool from ostomy. Pulmonary: Denied any shortness of breath cough Neurologic denied any new focal deficits All inpatient medications were reviewed and appropriate changes in these medi cations as dictated in the interval history and assessment and plan. PHYSICAL EXAMINATION: GENERAL: The patient is alert and oriented x3, not in any acute distress. Obese HEENT: Pupils are round and equally reacting to light. EOMI. No scleral icterus. No conjunctival pallor. Normocephalic, atraumatic. No pharyngeal erythema. No thyromegaly. CARDIOVASCULAR: S1 and S2 present. No murmurs, rubs, or gallops. PULMONARY: Chest is clear to auscultation, no wheezing or crackles. ABDOMEN: Soft, nontender, nondistended, normoactive bowel sounds. No palpable organomegaly. Patient has a colostomy MUSCULOSKELETAL: No joint swelling or deformity. EXTREMITIES: No cyanosis, clubbing, or pedal edema. Right below-knee amputation NEUROLOGICAL: Gross neurological examination did not reveal any focal deficits. Weakness. SKIN: No rashes. Assessment and plan -Severe sepsis: Source is intra-abdominal or central line, remains on IV Zosyn and daptomycin patient is refusing abdominal pelvis CT at this time it with prior admission there was concern for an intra-abdominal abscess patient is understanding of the complications from not having the CT done. Patient is again refusing the abdominal pelvis CT this is discussed with ID. -Staphylococcus epidermidis bacteremia with repeat cultures negative so far. Possible PICC line associated infection however unable to rule out intra- abdominal sources patient is refusing abdominal pelvis CT at this time despite multiple attempts and patient education. Refusing oral contrast also. -Mild protein calorie malnutrition patient uses PICC line for TPN on the outpatient basis. Currently with concern for PICC line infection however ok to continue to use the PICC line for continued TPN and nutritional support at this time. -Hyponatremia worsened with IV fluids, remains off IV fluids and continues on 1500 ml fluid restriction and sodium improved. -Hypomagnesemia replaced and f/u magnesium level. -History of Crohn's disease with the abdominal surgeries and a colostomy, patient is on TPN through central line. -Hypertension patient is septic and hypotensive at this time, blood pressure is improving. -Status post right BKA -Former smoker GI prophylaxis: Protonix DVT prophylaxis: Lovenox Full Code Plan Patient to have liver ultrasound this evening for the elevated LFTS. Home care and social work coordinating dc home and resuming the TPN. No abdominal pelvis CT to be completed this admission patient has refused. ID recommending 7 days of oral keflex on discharge unable to completely rule out intraabdominal source of infection. Follow up labs in AM. Possible D/C home in the next 24 hours. The impression and plan of care has been dictated by Coral Medina, Nurse Practitioner as directed. Dr. Mo MD I have performed a history and physical examination and medical decision making of this patient, discussed the same with the dictator, and agree with the dictators assessment and plan as written, documented as a scribe. Based on total visit time, I have performed more than 50% of this visit. Objective - Vital Signs Vital signs: Vital Signs Temp 97.8 F 11/15/22 13:10 Pulse 86 11/15/22 13:10 Resp 20 11/15/22 13:10 BP 111/70 11/15/22 13:10 Pulse Ox 93 L 11/15/22 13:10 FiO2 Intake & Output 11/14/22 11/15/22 11/15/22 18:59 06:59 18:59 Intake Total 0 0 Output Total 250 2350 1550 Balance -250 -2350 -1550 Intake: Oral 0 0 Output: Urine 650 300 Stool 250 1700 1250 Other: Voiding Method External Catheter External Catheter # Voids 1 - Labs CBC & Chem 7: 11/15/22 07:47 11/15/22 07:47 Labs: Abnormal Lab Results - Last 24 Hours (Table) 11/14/22 11/15/22 Range/Units 22:34 07:47 Sodium 135 L 136 L (137-145) mmol/L Potassium 3.4 L (3.5-5.1) mmol/L BUN 7 L 7 L (9-20) mg/dL Glucose 101 H (74-99) mg/dL Total Bilirubin 1.6 H 1.5 H (0.2-1.3) mg/dL AST 139 H 138 H (17-59) U/L ALT 163 H 156 H (4-49) U/L Alkaline Phosphatase 165 H 162 H (38-126) U/L Albumin 3.3 L 3.2 L (3.5-5.0) g/dL Microbiology - Last 24 Hours (Table) 11/11/22 21:31 Blood Culture - Preliminary Blood 11/11/22 21:43 Blood Culture - Preliminary Blood 11/13/22 14:59 Blood Culture - Preliminary Blood Assessment and Plan Time with Patient: Less than 30
[2022-11-15] MEDS ORDERED: FAT EMULSION 20% 250 ML IV SCH (16:00)
[2022-11-15] MEDS: MVI, ADULT NO.4 WITH VIT K 10 ML, TRACE (CONC-1ML/DOSE) 1 ML in AMINO ACID 5%-D20W+LYTE... IV SCH ×3 (17:04)
[2022-11-15 17:07] LABS: Glucose,Whole Blood 83 mg/dL (70-110)
--- NOTE | 2022-11-15 19:26 | US ---
EXAMINATION TYPE: US liver DATE OF EXAM: 11/15/2022 COMPARISON: CT:09/18/22 CLINICAL INDICATION: Male, 47 years old with history of elevated LFTs; elevated lfts, cholecystectomy TECHNIQUE: Multiple sonographic images of the right upper quadrant are obtained. Extremely limited exam due to ostomy covering abdomen, body habitus, and pt unable to roll FINDINGS: EXAM MEASUREMENTS: Liver Length: 13.6 cm Gallbladder Wall: Surgically absent Right Kidney: 10.0 x 6.6 x 5.8 cm DIRECTOR OF CURRICULUM AND INSTRUCTION NOTES: Pancreas: Appears wnl Liver: Increased attenuation Gallbladder: Surgically absent CBD: Not seen Right Kidney: wnl The pancreas appears within normal limits. Diffuse increased attenuation of liver with difficult pene tration. Gallbladder surgically absent. Common bile duct is not visualized. Right kidney is unremarka ble without evidence of hydronephrosis or nephrolithiasis. IMPRESSION: Extremely limited examination due to ostomy and patient's body habitus. 1. No gross evidence for acute process. 2. Hepatic steatosis. 3. Postcholecystectomy changes.
[2022-11-15 23:45] LABS: Glucose,Whole Blood 130 mg/dL (70-110)
[2022-11-16] MEDS ORDERED: AMINO ACID 5% IV SCH (02:00)
[2022-11-16] MEDS ORDERED: [UNRECOGNIZED DRUG - OTHER] IV SCH (02:00)
[2022-11-16 06:02] LABS: Glucose,Whole Blood 121 mg/dL (70-110)
[2022-11-16] MEDS: DIPHENOX-ATROP 2.5-0.025 MG 1 EACH TAB PO PRN (07:42)
[2022-11-16] MEDS: ENOXAPARIN 80 MG/0.8 ML SYRINGE SQ SCH (07:42)
[2022-11-16] MEDS: methocarbamoL 750 MG TAB PO SCH ×2 (07:42→15:21)
[2022-11-16] MEDS: LOPERAMIDE 2 MG CAP PO PRN (07:42)
[2022-11-16] MEDS: PANTOPRAZOLE 40 MG/10 ML VIAL IV SCH (07:42)
[2022-11-16] MEDS: METOPROLOL TARTRATE 12.5 MG TAB PO SCH (07:42)
[2022-11-16 07:43] LABS: Basophils % (A) 0 %; Eosinophils # (A) 0.1 k/uL (0-0.7); Eosinophils % (A) 2 %; HCT 41.8 % (39.0-53.0); HGB 13.4 gm/dL (13.0-17.5); Hypochromasia Slight; Lymphocytes # (A) 2.7 k/uL (1.0-4.8); Lymphocytes % (A) 42 %; MCH 30.3 pg (25.0-35.0); MCV 94.7 fL (80.0-100.0); Monocytes # (A) 0.3 k/uL (0-1.0); Monocytes % (A) 4 %; Neutrophils # (A) 3.1 k/uL (1.3-7.7); Neutrophils % (A) 49 %; Platelet Count 266 k/uL (150-450); RBC 4.41 m/uL (4.30-5.90); WBC 6.4 k/uL (3.8-10.6)
[2022-11-16 07:47] VITALS: RESP 20
[2022-11-16] MEDS: IPRATROPIUM-ALBUTEROL 3 ML NEB INHALATION SCH ×3 (07:47→15:40)
[2022-11-16 08:22] LABS: ALT 109 U/L (4-49); AST 87 U/L (17-59); African American GFR (CKD) >90 (>60 ml/min/1.73 sqM); Albumin 3.1 g/dL (3.5-5.0); Alkaline Phosphatase 128 U/L (38-126); Anion Gap 9 mmol/L; Blood Urea Nitrogen 14 mg/dL (9-20); Carbon Dioxide 22 mmol/L (22-30); Chloride 100 mmol/L (98-107); Glucose 143 mg/dL (74-99); Magnesium 1.9 mg/dL (1.6-2.3); Non-African American GFR(CKD) >90 (>60 ml/min/1.73 sqM); Potassium 3.6 mmol/L (3.5-5.1); Sodium 131 mmol/L (137-145); Total Protein 7.4 g/dL (6.3-8.2)
[2022-11-16 11:47] LABS: Glucose,Whole Blood 93 mg/dL (70-110)
[2022-11-16] MEDS ORDERED: POTASSIUM CHLORIDE ER 20 MEQ TAB.ER PO SCH (12:00)
[2022-11-16] MEDS ORDERED: LIDOCAINE 1% INJ 10MG/ML (20 ML MDV) SQ ONE ×2 (14:23→14:52)
[2022-11-16 15:08] VITALS: TEMP 98.1
[2022-11-16] MEDS: MVI, ADULT NO.4 WITH VIT K 10 ML, TRACE (CONC-1ML/DOSE) 1 ML in AMINO ACID 5%-D20W+LYTE... IV SCH ×3 (15:15)
[2022-11-16 15:24] VITALS: BP 110/76; PULSE 103
--- NOTE | 2022-11-16 15:33 | P.GSCN ---
History of Present Illness Consult date: 11/16/22 History of present illness: Patient is a 47-year-old male with extremely and infection who has a tunneled PICC/Vivas line. He recently underwent peripheral PICC insertion and is absent we removed the tunneled line. Past Medical History Past Medical History: CVA/TIA, Deep Vein Thrombosis (DVT) Additional Past Medical History / Comment(s): Progressing left upper thigh pain and swelling and left leg weakness. 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 Crohns. Ostomy Bag placed in 09/2021. History of Any Multi-Drug Resistant Organisms: None Reported Past Surgical History: Cholecystectomy, Orthopedic Surgery Additional Past Surgical History / Comment(s): Arm surgery, right leg below knee amputation, ostomy (2021) Past Anesthesia/Blood Transfusion Reactions: No Reported Reaction Past Psychological History: No Psychological Hx Reported Smoking Status: Former smoker Past Alcohol Use History: None Reported Additional Past Alcohol Use History / Comment(s): QUIT SMOKING IN 2016, STARTED SMOKING AT AGE 16, 1PPD. Past Drug Use History: None Reported - Past Family History Father Additional Family Medical History / Comment(s): DAD IN HIS TWENTIES - CAUSE UNKNOWN. Mother Family Medical History: Diabetes Mellitus Brother(s) Family Medical History: Cancer Additional Family Medical History / Comment(s): Kidney cancer as a baby. Medications and Allergies Home Medications Medication Instructions Recorded Confirmed Type Enoxaparin [Lovenox] 80 mg SQ Q12H 07/07/22 11/10/22 History Pantoprazole [Protonix] 40 mg PO DAILY 07/07/22 11/10/22 History methocarbamoL [Methocarbamol] 750 mg PO TID 07/07/22 11/10/22 History Albuterol Sulfate [Albuterol 1 - 2 puff PO RT-Q4H PRN 09/10/22 11/10/22 History Sulfate Hfa] Diphenox-Atrop 2.5-0.025 mg 1 tab PO TID PRN 11/10/22 11/10/22 History [Lomotil] Ergocalciferol (Vitamin D2) 1,250 mcg PO TH 11/10/22 11/10/22 History [Drisdol (50,000 Iu)] Loperamide HCl [Loperamide] 4 mg PO Q6H PRN 11/10/22 11/10/22 History Metoprolol Tartrate [Lopressor] 12.5 mg PO BID #30 tab 11/15/22 Rx ceFAZolin [Kefzol] 2 gm IVP Q8HR #24 each 11/16/22 Rx Allergies Allergy/AdvReac Type Severity Reaction Status Date / Time No Known Allergies Allergy Verified 11/09/22 22:14 Surgical - Exam Vital Signs Temp Pulse Resp BP Pulse Ox 103.2 F H 129 H 20 107/49 94 L 11/09/22 22:07 11/09/22 22:07 11/09/22 22:07 11/09/22 22:07 11/09/22 22:07 Gen. a pleasant cooperative chronically ill-appearing male in no acute distress. HEENT is normocephalic. Heart appears regular. Lungs diminished but clear. Contractures of the upper extremities. Left IJ tunneled PICC line examined the chest wall. No significant erythema or drainage. Left upper extremity PICC in place Results Images from recent PICC line reviewed, does appear to be IJ access and tunneled to the chest wall - Labs 11/16/22 06:47 11/16/22 06:47 Abnormal Lab Results - Last 24 Hours (Table) 11/15/22 11/16/22 11/16/22 Range/Units 23:44 05:57 06:47 Sodium 131 L (137-145) mmol/L Glucose 143 H (74-99) mg/dL POC Glucose (mg/dL) 130 H 121 H (70-110) mg/dL AST 87 H (17-59) U/L ALT 109 H (4-49) U/L Alkaline Phosphatase 128 H (38-126) U/L Albumin 3.1 L (3.5-5.0) g/dL Microbiology - Last 24 Hours (Table) 11/13/22 14:59 Blood Culture - Preliminary Blood 11/11/22 21:31 Blood Culture - Preliminary Blood 11/11/22 21:43 Blood Culture - Preliminary Blood Diabetes panel 11/16/22 11/16/22 Range/Units 06:47 06:47 Sodium 131 L (137-145) mmol/L Potassium 3.6 (3.5-5.1) mmol/L Chloride 100 (98-107) mmol/L Carbon Dioxide 22 (22-30) mmol/L BUN 14 (9-20) mg/dL Creatinine 0.84 (0.66-1.25) mg/dL Glucose 143 H (74-99) mg/dL Calcium 9.0 (8.4-10.2) mg/dL AST 87 H (17-59) U/L ALT 109 H (4-49) U/L Alkaline Phosphatase 128 H (38-126) U/L Total Protein 7.4 (6.3-8.2) g/dL Albumin 3.1 L (3.5-5.0) g/dL Triglycerides 129.00 (0.00-149.00) mg/dL Calcium panel 11/16/22 11/16/22 Range/Units 06:47 06:47 Calcium 9.0 (8.4-10.2) mg/dL Phosphorus 3.3 (2.5-4.5) mg/dL Albumin 3.1 L (3.5-5.0) g/dL Pituitary panel 11/16/22 Range/Units 06:47 Sodium 131 L (137-145) mmol/L Potassium 3.6 (3.5-5.1) mmol/L Chloride 100 (98-107) mmol/L Carbon Dioxide 22 (22-30) mmol/L BUN 14 (9-20) mg/dL Creatinine 0.84 (0.66-1.25) mg/dL Glucose 143 H (74-99) mg/dL Calcium 9.0 (8.4-10.2) mg/dL Adrenal panel 11/16/22 Range/Units 06:47 Sodium 131 L (137-145) mmol/L Potassium 3.6 (3.5-5.1) mmol/L Chloride 100 (98-107) mmol/L Carbon Dioxide 22 (22-30) mmol/L BUN 14 (9-20) mg/dL Creatinine 0.84 (0.66-1.25) mg/dL Glucose 143 H (74-99) mg/dL Calcium 9.0 (8.4-10.2) mg/dL Total Bilirubin 1.0 (0.2-1.3) mg/dL AST 87 H (17-59) U/L ALT 109 H (4-49) U/L Alkaline Phosphatase 128 H (38-126) U/L Total Protein 7.4 (6.3-8.2) g/dL Albumin 3.1 L (3.5-5.0) g/dL Assessment and Plan Assessment: Bacteremia, need for removal of tunneled PICC line Plan: At the bedside, the left neck was prepped in usual fashion. The dressings were removed and the sutures were cut from the previous line. Using gentle traction, the line was removed in its entirety with manual pressure held at the insertion site at the internal jugular. Patient tolerated procedure well. There was no evidence of hematoma or drainage. Simple dressing was placed at the exit site. Please let us know If wecan be of further assistance.
--- NOTE | 2022-11-16 15:34 | P.PN ---
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 On today's evaluation that is 11/16/2022 the patient remains to be febrile, the patient is breathing comfortably on room air, the patient denies any chest pain shortness of breath or cough, the patient denies abdominal pain no nausea no vomiting and has been tolerating his diet, no new symptoms Patient white count is 6.4, creatinine 0.84, blood culture repeat 11/11/2022 as well as 11/13/2022 negative Objective - Vital Signs Vital signs: Vital Signs Temp 97.9 F 11/16/22 07:38 Pulse 92 11/16/22 07:57 Resp 20 11/16/22 07:38 BP 101/65 11/16/22 07:38 Pulse Ox 95 11/16/22 07:38 FiO2 Intake & Output 11/15/22 11/16/22 11/16/22 18:59 06:59 18:59 Intake Total 0 10 600 Output Total 1925 1700 325 Balance -5 -169 275 Weight 90.718 kg Intake: IV 10 Invasive Line 1 10 Oral 0 600 Output: Urine 300 700 Stool 1625 1000 325 Other: Voiding Method External Catheter External Catheter External Catheter - Exam GENERAL DESCRIPTION: Middle-age male lying in bed in no distress RESPIRATORY SYSTEM: Unlabored breathing , decreased breath sounds at bases HEART: S1 S2 regular rate and rhythm ,no loud murmurs ABDOMEN: Soft , no tenderness EXTREMITIES: No edema feet - Labs CBC & Chem 7: 11/16/22 06:47 11/16/22 06:47 Labs: Abnormal Lab Results - Last 24 Hours (Table) 11/15/22 11/16/22 11/16/22 Range/Units 23:44 05:57 06:47 Sodium 131 L (137-145) mmol/L Glucose 143 H (74-99) mg/dL POC Glucose (mg/dL) 130 H 121 H (70-110) mg/dL AST 87 H (17-59) U/L ALT 109 H (4-49) U/L Alkaline Phosphatase 128 H (38-126) U/L Albumin 3.1 L (3.5-5.0) g/dL Microbiology - Last 24 Hours (Table) 11/13/22 14:59 Blood Culture - Preliminary Blood 11/11/22 21:31 Blood Culture - Preliminary Blood 11/11/22 21:43 Blood Culture - Preliminary Blood Assessment and Plan (1) Fever Current Visit: Yes Status: Acute Code(s): R50.9 - FEVER, UNSPECIFIED SNOMED Code(s): 770350490 Plan: 1patient presented hospital with sepsis in this patient with a fever tachycardia and leukopenia with a source questional intra-abdominal and there was concern for intra-abdominal abscess on the last visit that was not drained versus PICC line infection. 2high clinical suspicion for possible abdominal source unfortunately the patient continued to refuse CT abdominal pelvis did explain to the patient in simple [place]ian without CT we cannot rule out any intra-abdominal abscess 3-patient did have a positive blood culture with the coagulase negative staph oxacillin sensitive which could be possible contaminated as only one set is positive and repeat has been negative however as he did not have any other focus for infection we will direct antibiotic therapy mostly towards positive blood culture, patient agreed today for removal of his PICC line which could be infected, we will arrange for placement of a new PICC line was placed the current regimen will be discontinued and we'll recommend a day course of IV cefazolin on discharge 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 please excuse any grammatical, word or spelling errors. Time with Patient: Greater than 30
--- NOTE | 2022-11-17 19:20 | P.DS ---
Providers Date of admission: 11/10/22 02:04 Expected date of discharge: 11/16/22 Attending physician: Chepe Garrett Consults: 11/10/22 02:04 Consult Physician Routine Consulting Provider: Chanel Uriostegui Consult Reason/Comments: fever Do you want consulting provider notified?: Yes 11/12/22 10:18 Consult Physician Routine Consulting Provider: Aureliano Pearce Consult Reason/Comments: tachycardia Do you want consulting provider notified?: Yes Primary care physician: Chong [facility] Course: 47-year-old pleasant male came in with compensative fever lightheadedness and dizziness and dizziness without any cough denied any dysuria denied any abdominal pain denied any increased diarrhea. Patient has history of Crohn's disease and bowel surgeries and has a colostomy and a subclavian central line in the left chest for TPA and patient has been on TPN and the has a central line since month of April. Patient had high-grade fevers along with hyponatremia and hypotension. Chest x-ray suspicious for right lower lobe pneumonia although it appears more atelectasis. Patient was tachycardic as well. 11/11/2022 Patient is presently on Zosyn and vancomycin without any fevers there is a concern about intra-abdominal source of infection CT of the abdomen is being obtained. Patient is hypomagnesemic magnesium will be replaced and the patient's urine sodium and worsened with IV fluids which will be discontinued at this time. 11/12/2022 Patient is evaluated today resting in bed. Abdominal pelvis CT was recommended to rule out abdominal source of infection at this time patient has refused to have a CT completed. He is currently denying any abdominal pain or nausea no vomiting. His PICC line remains in place. Pulmonary blood cultures are showing gram-positive cocci in clusters with repeat pending and also blood culture from the PICC line is pending. Patient remains on antibiotics in the form of IV Zosyn and IV daptomycin and infectious disease is following closely. Labs today are currently pending. Hemodynamically he is stable. 11/13/2022 Patient is evaluated in the cardiac stepdown unit he can be transitioned to the medical floor with telemetry. He remains in normal sinus rhythm with a controlled heart rate in the 80s. Cardiology is following for the tachycardia felt to be likely SVT worsened by the infection. He remains a low-dose of beta kedar and cardiology following. Patient continues on IV daptomycin and IV zosyn and blood culture so far showing staphylococcus epidermidis. F/U blood cultures from the PICC line and peripheral lab draw are preliminary negative at 24 hours. Patient initially had refused oral contrast so abdominal pelvis CT was cancelled. After discussion with patient he agreed to IV contrast however, he refused the oral contrast again and after going for the DC he was upset about the RN being unable to access his PICC and became agitated that security had to be notified. Abdominal pelvis CT again cancelled. Ostomy intact with copious loose stool light brown in color. Patient states this is normal for him to have large quantity of stool output. Sodium is up to 131 today. Blood pressure remains on the lower side at 103/65. 11/14/2022 Patient is evaluated today in the cardiac stepdown unit. Transition to medical surgical with telemetry. He is agreeing to undergo abdominal pelvis CT with IV contrast over states that the staff to do the abdominal pelvis CT must be different than the day prior which there is still the same staff working. States that he will not go down for abdominal pelvis CT otherwise. Cultures showing Staphylococcus epidermidis with medical sensitivity is available. Repeat blood cultures are currently pending at this time. Infectious disease is following and patient does remain on IV Unasyn. He is resumed on his home antidiarrheals. Labs today showed normalized white count, sodium up to 135. 11/15/2022 Patient is evaluated today resting in bed. He continues to refuse abdominal pelvis CT upon further discussion. Patient states, "leave me alone." Upon evaluation with the medical attending physician patient states he is agreeable to the CT scan. This was discussed prior with ID upon patient refusal and as unable to completely rule out abdominal abscess the recommendation was given for oral keflex for 7 days of therapy. Patient was reluctant for PICC line removal and OK to uilize PICC for TPN dietary reconsulted for this and patient will be resumed on TPN. Discharge will be held overnight for homecare to resume the TPN outpatient. Additionally LFTs remain elevated and liver ultrasound has been ordered which will be completed around 6pm this evening. White count normal today at 5.0. Hemoglobin stable. Sodium 135, potassium 3.4, magnesium 1.9. Total bili 1.5, AST 138, ALT 156, alk phos 162. -Severe sepsis: Source is intra-abdominal or central line, remains on IV Zosyn and daptomycin patient is refusing abdominal pelvis CT at this time it with p rior admission there was concern for an intra-abdominal abscess patient is understanding of the complications from not having the CT done. Patient is again refusing the abdominal pelvis CT this is discussed with ID. -Staphylococcus epidermidis bacteremia with repeat cultures negative so far. Possible PICC line associated infection however unable to rule out intra- abdominal sources patient is refusing abdominal pelvis CT at this time despite multiple attempts and patient education. Refusing oral contrast also. -Mild protein calorie malnutrition patient uses PICC line for TPN on the outpatient basis. Currently with concern for PICC line infection however ok to continue to use the PICC line for continued TPN and nutritional support at this time. -Hyponatremia worsened with IV fluids, remains off IV fluids and continues on 1500 ml fluid restriction and sodium improved. -Hypomagnesemia replaced and f/u magnesium level. -History of Crohn's disease with the abdominal surgeries and a colostomy, patient is on TPN through central line. -Hypertension patient is septic and hypotensive at this time, blood pressure is improving. -Status post right BKA -Former smoker GI prophylaxis: Protonix DVT prophylaxis: Lovenox Full Code Plan Patient to have liver ultrasound this evening for the elevated LFTS. Home care and social work coordinating dc home and resuming the TPN. No abdominal pelvis CT to be completed this admission patient has refused. ID recommending 7 days of oral keflex on discharge unable to completely rule out intraabdominal source of infection. Follow up labs in AM. Possible D/C home in the next 24 hours. 11/16/2022; patient is medically stable for discharge on Keflex for 7 days per ID recommendations Patient Condition at Discharge: Serious Plan - Discharge Summary Discharge Rx Participant: No New Discharge Prescriptions: New Metoprolol Tartrate [Lopressor] 12.5 mg PO BID #30 tab ceFAZolin [Kefzol] 2 gm IVP Q8HR #24 each Continue Enoxaparin [Lovenox] 80 mg SQ Q12H methocarbamoL [Methocarbamol] 750 mg PO TID Pantoprazole [Protonix] 40 mg PO DAILY Albuterol Sulfate [Albuterol Sulfate Hfa] 1 - 2 puff PO RT-Q4H PRN PRN Reason: Shortness Of Breath Loperamide HCl [Loperamide] 4 mg PO Q6H PRN PRN Reason: Diarrhea Ergocalciferol (Vitamin D2) [Drisdol (50,000 Iu)] 1,250 mcg PO TH Diphenox-Atrop 2.5-0.025 mg [Lomotil] 1 tab PO TID PRN PRN Reason: Diarrhea Discontinued lisinopriL [Zestril] 2.5 mg PO DAILY PRN PRN Reason: high bp Metoprolol Tartrate [Lopressor] 12.5 mg PO BID Discharge Medication List Enoxaparin [Lovenox] 80 mg SQ Q12H 07/07/22 [History] Pantoprazole [Protonix] 40 mg PO DAILY 07/07/22 [History] methocarbamoL [Methocarbamol] 750 mg PO TID 07/07/22 [History] Albuterol Sulfate [Albuterol Sulfate Hfa] 1 - 2 puff PO RT-Q4H PRN 09/10/22 [History] Diphenox-Atrop 2.5-0.025 mg [Lomotil] 1 tab PO TID PRN 11/10/22 [History] Ergocalciferol (Vitamin D2) [Drisdol (50,000 Iu)] 1,250 mcg PO TH 11/10/22 [History] Loperamide HCl [Loperamide] 4 mg PO Q6H PRN 11/10/22 [History] Metoprolol Tartrate [Lopressor] 12.5 mg PO BID #30 tab 11/15/22 [Rx] ceFAZolin [Kefzol] 2 gm IVP Q8HR #24 each 11/16/22 [Rx] Follow up Appointment(s)/Referral(s): Chong Ivey DO [Primary Care Provider] - 11/28/22 3:30 pm Ambulatory/Diagnostic Orders: Complete Blood Count w/diff [LAB.AMB] Time Frame: 3 Days, Location: None Selected Comprehensive Metabolic Panel [LAB.AMB] Time Frame: 3 Days, Location: None Selected Patient Instructions/Handouts: Sepsis (DC) Activity/Diet/Wound Care/Special Instructions: Home Care - [facility] - [phone] Home Infusion/TPN - [facility] - [phone] - [facility] delivering TPN and IV antibiotics between 6pm and 9pm tonight Home care will be at your home tomorrow 11/17/22. Follow up with your usual general surgeon and also with GI on discharge Complete course of oral keflex for 7 days and follow up with Dr. Uriostegui in the office Recommend to repeat labs in 2 to 3 days. Discharge Disposition: HOME WITH HOME HEALTH SERVICES
--- NOTE | 2022-11-20 08:31 | IR ---
PICC LINE PLACEMENT: HISTORY: TPN therapy PROCEDURE: Ultrasound and fluoroscopic guidance of PICC line placement. COMPLICATIONS: None ANESTHESIA: 1. 1% Lidocaine locally. FINDINGS/TECHNIQUE: The procedure was explained to the patient. The risks, complications, benefits and alternatives were discussed and any questions were answered. Informed consent was obtained. The patient was placed supine on the fluoroscopic table and prepped and draped in the usual sterile fash ion. Utilizing a 21 gauge needle and sonographic and fluoroscopic guidance, access in the left ceph alic vein was achieved and there is placement of a 0.018 guidewire. The vein is patent. A 4-F sheat h was placed over the guidewire. The guidewire and dilator were removed and a 4-F. PICC line was cy chad through the sheath with the tip at the level of the SVC. The sheath was removed, the catheter wa s flushed and sutured into position. The patient was stable throughout the procedure and remained st able upon discharge from the Department of Radiology. The vein puncture was patent under ultrasound. A trotter scale image was obtained to document patency of the vein punctured. All elements of the maximal barrier technique were utilized. FLUOROSCOPY TIME: DAP 0.7Gy cm2 IMPRESSION: Successful PICC line placement under ultrasound and fluoroscopic guidance.
== END 2022-11-16 18:58 | disposition home health service (06) | DRG 314 ==
LOC: EC 22:05 → 3SCARD 11-10 02:04
PROVIDERS: ADMIT Hospitalist; ATTEND Hospitalist
DX: T80.211A Bloodstream infection due to central venous catheter, initial encounter (principal); A41.9 Sepsis, unspecified organism; R65.20 Severe sepsis without septic shock; K50.911 Crohn's disease, unspecified, with rectal bleeding; I47.1 Supraventricular tachycardia; E87.1 Hypo-osmolality and hyponatremia; E44.1 Mild protein-calorie malnutrition; R09.02 Hypoxemia; Y84.8 Other medical procedures as the cause of abnormal reaction of the patient, or of later complication, without mention of misadventure at the time of the procedure; E83.42 Hypomagnesemia; I10 Essential (primary) hypertension; Z20.822 Contact with and (suspected) exposure to COVID-19; Z53.20 Procedure and treatment not carried out because of patient's decision for unspecified reasons; Z79.899 Other long term (current) drug therapy; Z80.51 Family history of malignant neoplasm of kidney; Z83.3 Family history of diabetes mellitus; Z86.718 Personal history of other venous thrombosis and embolism; Z86.73 Personal history of transient ischemic attack (TIA), and cerebral infarction without residual deficits; Z87.891 Personal history of nicotine dependence; Z89.511 Acquired absence of right leg below knee; Z90.49 Acquired absence of other specified parts of digestive tract; Z93.3 Colostomy status; Z68.28 Body mass index [BMI] 28.0-28.9, adult
CPT/HCPCS: 36415; 36573; 71045; 76705; 80048; 80053; 81003; 83605; 83735; 84100; 84443; 84478; 85025; 85027; 87040; 87077; 87186; 87636; 93306; 94640; 96361; 96365; 96375; 99291

== ENCOUNTER 2023-02-13 20:46 | Inpatient (IN) | payer OTHER ==
[2023-02-13] MEDS ORDERED: SODIUM CHLORIDE 0.9% 1,000 ML IV STA (20:56)
[2023-02-13] MEDS ORDERED: ACETAMINOPHEN TAB 500 MG TAB PO STA (20:57)
--- NOTE | 2023-02-13 21:21 | ED ---
Weakness HPI - General Chief complaint: Weakness Stated complaint: Weakness Time Seen by Provider: 02/13/23 20:55 Source: patient, EMS, RN notes reviewed Mode of arrival: EMS Limitations: no limitations - History of Present Illness Initial comments: This is a 47-year-old male who presents to the emergency department for weakness, coughing, and shortness of breath. Symptoms started about 3 days ago. Denies any chest pain. He has measured fevers at home getting as high as 101F. Denies any sick contacts. He does not wear oxygen at home and denies any history of respiratory illnesses such as asthma or COPD. Denies any abdominal pain, nausea, or vomiting. Patient is essentially bedbound. He previously had a colectomy due to Crohn's disease and now has an ileostomy. 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 He also has a left PICC line in place and receives TPN 9 hours a day. MD Complaint: generalized weakness - Related Data Home Medications Medication Instructions Recorded Confirmed Enoxaparin [Lovenox] 80 mg SQ Q12H 07/07/22 02/13/23 Pantoprazole [Protonix] 40 mg PO DAILY 07/07/22 02/13/23 methocarbamoL 750 mg PO TID 07/07/22 02/13/23 Albuterol Sulfate [Albuterol 1 - 2 puff PO RT-Q4H PRN 09/10/22 02/13/23 Sulfate Hfa] Diphenox-Atrop 2.5-0.025 mg 1 tab PO TID PRN 11/10/22 02/13/23 [Lomotil] Ergocalciferol (Vitamin D2) 1,250 mcg PO TH 11/10/22 02/13/23 [Drisdol (50,000 Iu)] Loperamide HCl [Loperamide] 4 mg PO Q6H PRN 11/10/22 02/13/23 Previous Rx's Medication Instructions Recorded Metoprolol Tartrate [Lopressor] 12.5 mg PO BID #30 tab 11/15/22 Allergies Allergy/AdvReac Type Severity Reaction Status Date / Time No Known Allergies Allergy Verified 02/13/23 20:54 Review of Systems ROS Statement: Those systems with pertinent positive or pertinent negative responses have been documented in the HPI. ROS Other: All systems not noted in ROS Statement are negative. Past Medical History Past Medical History: CVA/TIA, Deep Vein Thrombosis (DVT) Additional Past Medical History / Comment(s): Progressing left upper thigh pain and swelling and left leg weakness. Hx CVA in 2012, during surgery to repair b lood clot, states still has DVT in right arm. Crohns. Ostomy Bag placed in 09/2021. History of Any Multi-Drug Resistant Organisms: None Reported Past Surgical History: Cholecystectomy, Orthopedic Surgery Additional Past Surgical History / Comment(s): Arm surgery, right leg below knee amputation, ostomy (2021) Past Anesthesia/Blood Transfusion Reactions: No Reported Reaction Past Psychological History: No Psychological Hx Reported Smoking Status: Former smoker Past Alcohol Use History: None Reported Past Drug Use History: None Reported - Past Family History Father Additional Family Medical History / Comment(s): DAD IN HIS TWENTIES - CAUSE UNKNOWN. Mother Family Medical History: Diabetes Mellitus Brother(s) Family Medical History: Cancer Additional Family Medical History / Comment(s): Kidney cancer as a baby. General Exam Limitations: no limitations General appearance: alert, in no apparent distress Head exam: Present: atraumatic, normocephalic, normal inspection Respiratory exam: Present: rhonchi, decreased breath sounds, prolonged expiratory Cardiovascular Exam: Present: normal rhythm, tachycardia, normal heart sounds GI/Abdominal exam: Present: soft. Absent: distended, tenderness Neurological exam: Present: alert, oriented X3, CN II-XII intact Psychiatric exam: Present: normal affect, normal mood Skin exam: Present: warm, dry, intact, normal color. Absent: rash Course Vital Signs 02/13/23 02/13/23 02/13/23 20:49 21:00 22:00 Temperature 102.0 F H Pulse Rate 119 H 110 H Pulse Rate [ Pulse Oximetery ] Respiratory 22 24 24 Rate Blood Pressure 110/72 110/67 Blood Pressure [Left Arm] O2 Sat by Pulse 95 96 Oximetry 02/13/23 02/13/23 02/14/23 23:17 23:27 00:00 Temperature 99.3 F Pulse Rate 104 H 102 H 104 H Pulse Rate [ Pulse Oximetery ] Respiratory 20 Rate Blood Pressure 112/64 Blood Pressure [Left Arm] O2 Sat by Pulse 95 Oximetry 11/30/23 11/30/23 11/30/23 03:00 06:00 09:27 Temperature 100.4 F H 98.3 F Pulse Rate 104 H 91 Pulse Rate [ 93 Pulse Oximetery ] Respiratory 24 20 Rate Blood Pressure 144/74 106/52 Blood Pressure 118/64 [Left Arm] O2 Sat by Pulse 97 96 95 Oximetry 02/14/23 02/14/23 14:00 20:20 Temperature 98.2 F Pulse Rate 84 Pulse Rate [ 85 Pulse Oximetery ] Respiratory 16 Rate Blood Pressure Blood Pressure 124/69 [Left Arm] O2 Sat by Pulse 96 Oximetry Medical Decision Making - Medical Decision Making This is a 47-year-old male who presents to the emergency department for weakness and shortness of breath. Was pt. sent in by a medical professional or institution? @ -No Did you speak to anyone other than the patient for history? @ -No Did you review nursing and triage notes? @ -Yes, and I agree, it is accurate with regards to the patient's symptoms. Were old charts reviewed? @ -No Differential Diagnosis? @ -Differential Dyspnea: Coronary syndrome, arrhythmia, tamponade, asthma, COPD, pulmonary embolism, pneumonia, pneumothorax, pulmonary effusion, anaphylaxis, diabetic ketoacidosis, flailed chest, pulmonary contusion, diaphragmatic rupture, anemia, neuro muscular, this is not meant to be an all-inclusive list. -Differential Weakness: Hypoglycemia, shock, sepsis, hyponatremia, anemia, infection, AL, ETOH, adverse medicine reaction, overdose, stroke, this is not meant to be an all-inclusive list. EKG interpreted by me (3pts min.)? @ -EKG interpreted by me demonstrating the following: Sinus tachycardia. Ve ntricular rate 113 bpm, [place] interval 140 ms, QRS duration 105 ms, QTC 397 ms. X-rays interpreted by me (1pt min.)? @ -Chest x-ray obtained, my interpretation identifies no localized consolidations or infiltrates. CT interpreted by me (1pt min.)? @ -CTA of the chest obtained. My interpretation identifies no evidence of a pul monary embolus. U/S interpreted by me (1pt. min.)? @ -Not obtained What testing was considered but not performed? (CT, X-rays, U/S, labs)? Why? @ -None What meds were considered but not given? Why? @ -None Did you discuss the management of the patient with other professionals? @ -ED attending, Dr. Mae, discussed case with [facility] for admission. Did you reconcile home meds? @ -Yes Was smoking cessation discussed for >3mins.? @ -No Was critical care preformed (if so, how long)? @ -No Were there social determinants of health that impacted care today? How? (Homelessness, low income, unemployed, alcoholism, drug addiction, transportation, low edu. Level, literacy, decrease access to med. care, fdc, rehab)? @ -No Was there de-escalation of care discussed even if they declined? (Discuss DNR or withdrawal of care, Hospice)? @ -No What co-morbidities impacted this encounter? (DM, HTN, Smoking, COPD, CAD, Cancer, CVA, Hep., AIDS, mental health diagnosis, sleep apnea, morbid obesity)? @ -Immobility Was patient admitted / discharged? @ -Admitted. Patient was febrile and tachycardic on arrival. He was given a dose of Tylenol. Lab work obtained revealing an elevated d-dimer of 2.52 and a mildly elevated lactic acid of 2.2. COVID, influenza, and RSV testing were negative. Urinalysis not very suggestive of infection. Urine sent for culture. Chest x-ray obtained revealing no acute process. Given his symptoms and elevated d-dimer, CT angiogram of the chest was obtained. No evidence of a pulmonary embolus was identified. He was found to have an occluded right subcla vian to axillary bypass graft. He also has atelectasis in the right middle and lower lobes. Fever improved with the Tylenol initially, but then increased again and he was treated with Ibuprofen. He remained tachycardic even while the temperature improved. The cause of his fever is not entirely clear at this point. However, given the patient's increase in weakness and other health issues, patient admitted to medicine for weakness and fever of unknown origin. He was given a 3L bolus of IV fluids and started on maintenance IV fluids. He was also started on vancomycin and ceftriaxone. Blood cultures obtained as well. Undiagnosed new problem with uncertain prognosis? @ -None Drug Therapy requiring intensive monitoring for toxicity (Heparin, Nitro, Insulin, Cardizem)? @ -None Were any procedures done? @ -None Diagnosis/symptom? @ -Fever of unknown origin, weakness Acute, or Chronic, or Acute on Chronic? @ -Acute Uncomplicated (without systemic symptoms) or Complicated (systemic symptoms)? @ -Complicated Side effects of treatment? @ -None Exacerbation, Progression, or Severe Exacerbation] @ -Not applicable Poses a threat to life or bodily function? @ -Yes This case was discussed in detail with the attending ED physician, Dr. Mae. Presentation, findings, and treatment plan discussed in detail as well. - Lab Data Result diagrams: 02/13/23 21:30 02/13/23 21:30 Lab Results 02/13/23 02/13/23 02/13/23 Range/Units 21:30 21: 21:30 WBC 7.5 (3.8-10.6) k/uL RBC 4.52 (4.30-5.90) m/uL Hgb 12.9 L (13.0-17.5) gm/dL Hct 40.0 (39.0-53.0) % MCV 88.5 (80.0-100.0) fL MCH 28.5 (25.0-35.0) pg MCHC 32.2 (31.0-37.0) g/dL RDW 15.1 (11.5-15.5) % Plt Count 93 L (150-450) k/uL MPV 10.0 Neutrophils % 81 % Lymphocytes % 8 % Monocytes % 7 % Eosinophils % 1 % Basophils % 0 % Neutrophils # 6.1 (1.3-7.7) k/uL Lymphocytes # 0.6 L (1.0-4.8) k/uL Monocytes # 0.6 (0-1.0) k/uL Eosinophils # 0.1 (0-0.7) k/uL Basophils # 0.0 (0-0.2) k/uL Manual Slide Review Performed Hypochromasia Slight ESR (0-15) mm/Hr PT 12.6 H (10.0-12.5) sec INR 1.2 H (<1.2) APTT 29.3 (22.0-30.0) sec D-Dimer 2.52 H (<0.60) mg/L FEU Sodium 132 L (137-145) mmol/L Potassium 4.2 (3.5-5.1) mmol/L Chloride 100 (98-107) mmol/L Carbon Dioxide 22 (22-30) mmol/L Anion Gap 10 mmol/L BUN 18 (9-20) mg/dL Creatinine 0.64 L (0.66-1.25) mg/dL Est GFR (CKD-EPI)AfAm >90 (>60 ml/min/1.73 sqM) Est GFR (CKD-EPI)NonAf >90 (>60 ml/min/1.73 sqM) Glucose 90 (74-99) mg/dL Lactic Ac Sepsis Rflx Plasma Lactic Acid Edmund (0.7-2.0) mmol/L Calcium 8.1 L (8.4-10.2) mg/dL Magnesium 1.6 (1.6-2.3) mg/dL Total Bilirubin 1.2 (0.2-1.3) mg/dL AST 42 (17-59) U/L ALT 46 (4-49) U/L Alkaline Phosphatase 104 (38-126) U/L Troponin I (0.000-0.034) ng/mL C-Reactive Protein (<1.0) mg/dL NT-Pro-B Natriuret Pep pg/mL Total Protein 6.9 (6.3-8.2) g/dL Albumin 2.7 L (3.5-5.0) g/dL Procalcitonin (0.02-0.09) ng/mL Urine Color Urine Appearance (Clear) Urine pH (5.0-8.0) Ur Specific [place] (1.001-1.035) Urine Protein (Negative) Urine Glucose (UA) (Negative) Urine Ketones (Negative) Urine Blood (Negative) Urine Nitrite (Negative) Urine Bilirubin (Negative) Urine Urobilinogen (<2.0) mg/dL Ur Leukocyte Esterase (Negative) Urine RBC (0-5) /hpf Urine WBC (0-5) /hpf Ur Squamous Epith Cells (0-4) /hpf Urine Mucus (None) /hpf Influenza Type A (PCR) (Not Detectd) Influenza Type B (PCR) (Not Detectd) RSV (PCR) (Not Detectd) SARS-CoV-2 (PCR) (Not Detectd) 02/13/23 02/13/23 02/13/23 Range/Units 21:30 21:30 21:30 WBC (3.8-10.6) k/uL RBC (4.30-5.90) m/uL Hgb (13.0-17.5) gm/dL Hct (39.0-53.0) % MCV (80.0-100.0) fL MCH (25.0-35.0) pg MCHC (31.0-37.0) g/dL RDW (11.5-15.5) % Plt Count (150-450) k/uL MPV Neutrophils % % Lymphocytes % % Monocytes % % Eosinophils % % Basophils % % Neutrophils # (1.3-7.7) k/uL Lymphocytes # (1.0-4.8) k/uL Monocytes # (0-1.0) k/uL Eosinophils # (0-0.7) k/uL Basophils # (0-0.2) k/uL Manual Slide Review Hypochromasia ESR (0-15) mm/Hr PT (10.0-12.5) sec INR (<1.2) APTT (22.0-30.0) sec D-Dimer (<0.60) mg/L FEU Sodium (137-145) mmol/L Potassium (3.5-5.1) mmol/L Chloride (98-107) mmol/L Carbon Dioxide (22-30) mmol/L Anion Gap mmol/L BUN (9-20) mg/dL Creatinine (0.66-1.25) mg/dL Est GFR (CKD-EPI)AfAm (>60 ml/min/1.73 sqM) Est GFR (CKD-EPI)NonAf (>60 ml/min/1.73 sqM) Glucose (74-99) mg/dL Lactic Ac Sepsis Rflx Plasma Lactic Acid Edmund 2.2 H* (0.7-2.0) mmol/L Calcium (8.4-10.2) mg/dL Magnesium (1.6-2.3) mg/dL Total Bilirubin (0.2-1.3) mg/dL AST (17-59) U/L ALT (4-49) U/L Alkaline Phosphatase (38-126) U/L Troponin I <0.012 (0.000-0.034) ng/mL C-Reactive Protein (<1.0) mg/dL NT-Pro-B Natriuret Pep pg/mL Total Protein (6.3-8.2) g/dL Albumin (3.5-5.0) g/dL Procalcitonin (0.02-0.09) ng/mL Urine Color Urine Appearance (Clear) Urine pH (5.0-8.0) Ur Specific [place] (1.001-1.035) Urine Protein (Negative) Urine Glucose (UA) (Negative) Urine Ketones (Negative) Urine Blood (Negative) Urine Nitrite (Negative) Urine Bilirubin (Negative) Urine Urobilinogen (<2.0) mg/dL Ur Leukocyte Esterase (Negative) Urine RBC (0-5) /hpf Urine WBC (0-5) /hpf Ur Squamous Epith Cells (0-4) /hpf Urine Mucus (None) /hpf Influenza Type A (PCR) Not Detected (Not Detectd) Influenza Type B (PCR) Not Detected (Not Detectd) RSV (PCR) Not Detected (Not Detectd) SARS-CoV-2 (PCR) Not Detected (Not Detectd) 02/13/23 02/13/23 02/14/23 Range/Units 21:30 23:00 02:10 WBC (3.8-10.6) k/uL RBC (4.30-5.90) m/uL Hgb (13.0-17.5) gm/dL Hct (39.0-53.0) % MCV (80.0-100.0) fL MCH (25.0-35.0) pg MCHC (31.0-37.0) g/dL RDW (11.5-15.5) % Plt Count (150-450) k/uL MPV Neutrophils % % Lymphocytes % % Monocytes % % Eosinophils % % Basophils % % Neutrophils # (1.3-7.7) k/uL Lymphocytes # (1.0-4.8) k/uL Monocytes # (0-1.0) k/uL Eosinophils # (0-0.7) k/uL Basophils # (0-0.2) k/uL Manual Slide Review Hypochromasia ESR (0-15) mm/Hr PT (10.0-12.5) sec INR (<1.2) APTT (22.0-30.0) sec D-Dimer (<0.60) mg/L FEU Sodium (137-145) mmol/L Potassium (3.5-5.1) mmol/L Chloride (98-107) mmol/L Carbon Dioxide (22-30) mmol/L Anion Gap mmol/L BUN (9-20) mg/dL Creatinine (0.66-1.25) mg/dL Est GFR (CKD-EPI)AfAm (>60 ml/min/1.73 sqM) Est GFR (CKD-EPI)NonAf (>60 ml/min/1.73 sqM) Glucose (74-99) mg/dL Lactic Ac Sepsis Rflx Y Plasma Lactic Acid Edmund (0.7-2.0) mmol/L Calcium (8.4-10.2) mg/dL Magnesium (1.6-2.3) mg/dL Total Bilirubin (0.2-1.3) mg/dL AST (17-59) U/L ALT (4-49) U/L Alkaline Phosphatase (38-126) U/L Troponin I (0.000-0.034) ng/mL C-Reactive Protein (<1.0) mg/dL NT-Pro-B Natriuret Pep 89 pg/mL Total Protein (6.3-8.2) g/dL Albumin (3.5-5.0) g/dL Procalcitonin (0.02-0.09) ng/mL Urine Color Yellow Urine Appearance Clear (Clear) Urine pH 6.0 (5.0-8.0) Ur Specific [place] >1.050 H (1.001-1.035) Urine Protein Trace H (Negative) Urine Glucose (UA) Negative (Negative) Urine Ketones Negative (Negative) Urine Blood Negative (Negative) Urine Nitrite Negative (Negative) Urine Bilirubin Negative (Negative) Urine Urobilinogen <2.0 (<2.0) mg/dL Ur Leukocyte Esterase Small H (Negative) Urine RBC 3 (0-5) /hpf Urine WBC 16 H (0-5) /hpf Ur Squamous Epith Cells 1 (0-4) /hpf Urine Mucus Rare H (None) /hpf Influenza Type A (PCR) (Not Detectd) Influenza Type B (PCR) (Not Detectd) RSV (PCR) (Not Detectd) SARS-CoV-2 (PCR) (Not Detectd) 02/14/23 02/14/23 02/14/23 Range/Units 02:12 02:49 02:49 WBC (3.8-10.6) k/uL RBC (4.30-5.90) m/uL Hgb (13.0-17.5) gm/dL Hct (39.0-53.0) % MCV (80.0-100.0) fL MCH (25.0-35.0) pg MCHC (31.0-37.0) g/dL RDW (11.5-15.5) % Plt Count (150-450) k/uL MPV Neutrophils % % Lymphocytes % % Monocytes % % Eosinophils % % Basophils % % Neutrophils # (1.3-7.7) k/uL Lymphocytes # (1.0-4.8) k/uL Monocytes # (0-1.0) k/uL Eosinophils # (0-0.7) k/uL Basophils # (0-0.2) k/uL Manual Slide Review Hypochromasia ESR 7 (0-15) mm/Hr PT (10.0-12.5) sec INR (<1.2) APTT (22.0-30.0) sec D-Dimer (<0.60) mg/L FEU Sodium (137-145) mmol/L Potassium (3.5-5.1) mmol/L Chloride (98-107) mmol/L Carbon Dioxide (22-30) mmol/L Anion Gap mmol/L BUN (9-20) mg/dL Creatinine (0.66-1.25) mg/dL Est GFR (CKD-EPI)AfAm (>60 ml/min/1.73 sqM) Est GFR (CKD-EPI)NonAf (>60 ml/min/1.73 sqM) Glucose (74-99) mg/dL Lactic Ac Sepsis Rflx Plasma Lactic Acid Edmund 1.5 (0.7-2.0) mmol/L Calcium (8.4-10.2) mg/dL Magnesium (1.6-2.3) mg/dL Total Bilirubin (0.2-1.3) mg/dL AST (17-59) U/L ALT (4-49) U/L Alkaline Phosphatase (38-126) U/L Troponin I (0.000-0.034) ng/mL C-Reactive Protein 6.3 H (<1.0) mg/dL NT-Pro-B Natriuret Pep pg/mL Total Protein (6.3-8.2) g/dL Albumin (3.5-5.0) g/dL Procalcitonin (0.02-0.09) ng/mL Urine Color Urine Appearance (Clear) Urine pH (5.0-8.0) Ur Specific [place] (1.001-1.035) Urine Protein (Negative) Urine Glucose (UA) (Negative) Urine Ketones (Negative) Urine Blood (Negative) Urine Nitrite (Negative) Urine Bilirubin (Negative) Urine Urobilinogen (<2.0) mg/dL Ur Leukocyte Esterase (Negative) Urine RBC (0-5) /hpf Urine WBC (0-5) /hpf Ur Squamous Epith Cells (0-4) /hpf Urine Mucus (None) /hpf Influenza Type A (PCR) (Not Detectd) Influenza Type B (PCR) (Not Detectd) RSV (PCR) (Not Detectd) SARS-CoV-2 (PCR) (Not Detectd) 02/14/23 Range/Units 02:49 WBC (3.8-10.6) k/uL RBC (4.30-5.90) m/uL Hgb (13.0-17.5) gm/dL Hct (39.0-53.0) % MCV (80.0-100.0) fL MCH (25.0-35.0) pg MCHC (31.0-37.0) g/dL RDW (11.5-15.5) % Plt Count (150-450) k/uL MPV Neutrophils % % Lymphocytes % % Monocytes % % Eosinophils % % Basophils % % Neutrophils # (1.3-7.7) k/uL Lymphocytes # (1.0-4.8) k/uL Monocytes # (0-1.0) k/uL Eosinophils # (0-0.7) k/uL Basophils # (0-0.2) k/uL Manual Slide Review Hypochromasia ESR (0-15) mm/Hr PT (10.0-12.5) sec INR (<1.2) APTT (22.0-30.0) sec D-Dimer (<0.60) mg/L FEU Sodium (137-145) mmol/L Potassium (3.5-5.1) mmol/L Chloride (98-107) mmol/L Carbon Dioxide (22-30) mmol/L Anion Gap mmol/L BUN (9-20) mg/dL Creatinine (0.66-1.25) mg/dL Est GFR (CKD-EPI)AfAm (>60 ml/min/1.73 sqM) Est GFR (CKD-EPI)NonAf (>60 ml/min/1.73 sqM) Glucose (74-99) mg/dL Lactic Ac Sepsis Rflx Plasma Lactic Acid Edmund (0.7-2.0) mmol/L Calcium (8.4-10.2) mg/dL Magnesium (1.6-2.3) mg/dL Total Bilirubin (0.2-1.3) mg/dL AST (17-59) U/L ALT (4-49) U/L Alkaline Phosphatase (38-126) U/L Troponin I (0.000-0.034) ng/mL C-Reactive Protein (<1.0) mg/dL NT-Pro-B Natriuret Pep pg/mL Total Protein (6.3-8.2) g/dL Albumin (3.5-5.0) g/dL Procalcitonin 4.58 H (0.02-0.09) ng/mL Urine Color Urine Appearance (Clear) Urine pH (5.0-8.0) Ur Specific [place] (1.001-1.035) Urine Protein (Negative) Urine Glucose (UA) (Negative) Urine Ketones (Negative) Urine Blood (Negative) Urine Nitrite (Negative) Urine Bilirubin (Negative) Urine Urobilinogen (<2.0) mg/dL Ur Leukocyte Esterase (Negative) Urine RBC (0-5) /hpf Urine WBC (0-5) /hpf Ur Squamous Epith Cells (0-4) /hpf Urine Mucus (None) /hpf Influenza Type A (PCR) (Not Detectd) Influenza Type B (PCR) (Not Detectd) RSV (PCR) (Not Detectd) SARS-CoV-2 (PCR) (Not Detectd) - Radiology Data Radiology results: report reviewed, image reviewed Disposition Clinical Impression: Weakness, Fever of unknown origin Disposition: ADMITTED IP TO THIS HOSP
[2023-02-13 22:11] LABS: ALT 46 U/L (4-49); AST 42 U/L (17-59); African American GFR (CKD) >90 (>60 ml/min/1.73 sqM); Albumin 2.7 g/dL (3.5-5.0); Alkaline Phosphatase 104 U/L (38-126); Anion Gap 10 mmol/L; Blood Urea Nitrogen 18 mg/dL (9-20); Calcium 8.1 mg/dL (8.4-10.2); Carbon Dioxide 22 mmol/L (22-30); Chloride 100 mmol/L (98-107); Glucose 90 mg/dL (74-99); Magnesium 1.6 mg/dL (1.6-2.3); Non-African American GFR(CKD) >90 (>60 ml/min/1.73 sqM); Potassium 4.2 mmol/L (3.5-5.1); Sodium 132 mmol/L (137-145); Total Bilirubin 1.2 mg/dL (0.2-1.3); Total Protein 6.9 g/dL (6.3-8.2)
[2023-02-13 22:12] LABS: Basophils % (A) 0 %; Eosinophils # (A) 0.1 k/uL (0-0.7); Eosinophils % (A) 1 %; HGB 12.9 gm/dL (13.0-17.5); Hypochromasia Slight; Lymphocytes # (A) 0.6 k/uL (1.0-4.8); Lymphocytes % (A) 8 %; MCH 28.5 pg (25.0-35.0); MCHC 32.2 g/dL (31.0-37.0); MCV 88.5 fL (80.0-100.0); Monocytes # (A) 0.6 k/uL (0-1.0); Monocytes % (A) 7 %; Neutrophils # (A) 6.1 k/uL (1.3-7.7); Neutrophils % (A) 81 %; RBC 4.52 m/uL (4.30-5.90); RDW 15.1 % (11.5-15.5); WBC 7.5 k/uL (3.8-10.6)
[2023-02-13 22:14] LABS: INR 1.2 (<1.2); Partial Thromboplastin Time 29.3 sec (22.0-30.0); Prothrombin Time 12.6 sec (10.0-12.5)
[2023-02-13] MEDS ORDERED: IPRATROPIUM-ALBUTEROL 3 ML NEB INHALATION STA (22:23)
[2023-02-13 22:42] LABS: Platelet Count 93 k/uL (150-450)
--- NOTE | 2023-02-13 23:24 | XR ---
EXAM: XR Chest, 2 Views CLINICAL HISTORY: ITS.REASON XR Reason: Weakness TECHNIQUE: Frontal and lateral views of the chest. COMPARISON: No relevant prior studies available. FINDINGS: Lungs: Low lung volumes. Elevated right hemidiaphragm. Pleural space: No pleural effusion. No pneumothorax. Heart: Unremarkable. No cardiomegaly. Bones/joints: Unremarkable. No fracture or malalignment. IMPRESSION: Low lung volumes. Elevated right hemidiaphragm.
--- NOTE | 2023-02-13 23:27 | CT ---
EXAM: CT Angiography Chest With Intravenous Contrast CLINICAL HISTORY: ITS.REASON CT Reason: CHAR, elevated d-dimer TECHNIQUE: Axial computed tomographic angiography images of the chest with intravenous contrast. CTDI is 74.3 mGy and DLP is 1040.9 mGy-cm. This CT exam was performed using one or more of the following dose reduction techniques: automated exposure control, adjustment of the mA and/or kV according to patient size, and/or use of iterative reconstruction technique. MIP reconstructed images were created and reviewed. COMPARISON: No relevant prior studies available. FINDINGS: Pulmonary arteries: No pulmonary embolism. Aorta: No acute findings. Normal caliber. No dissection. Lungs: Atelectasis within the lower lobes and right middle lobe. Pleural space: Unremarkable. Heart: Unremarkable. Bones/joints: No acute fracture. Soft tissues: Occluded right subclavian to axillary bypass graft. Lymph nodes: Unremarkable. Upper abdomen: Elevated right hemidiaphragm. IMPRESSION: 1. No pulmonary embolism. 2. Occluded right subclavian to axillary bypass graft. 3. Elevated right hemidiaphragm. 4. Atelectasis within the lower lobes and right middle lobe.
[2023-02-13] MEDS ORDERED: VANCOMYCIN IV PER PHARMACY 1 EACH MISC MISCELLANE PRN (23:29)
[2023-02-13] MEDS ORDERED: SODIUM CHLORIDE 0.9% 2,000 ML IV STA (23:30)
[2023-02-13] MEDS ORDERED: VANCOMYCIN 1,500 MG in SODIUM CHLORIDE 0.9% 500 ML 500 ML IVPB STA (23:35)
[2023-02-14] MEDS: SODIUM CHLORIDE 0.9% 1,000 ML IV SCH ×2 (00:38→08:10)
[2023-02-14 02:23] LABS: Appearance,Urine Clear (Clear); Bilirubin,Urine Negative (Negative); Blood,Urine Negative (Negative); Color,Urine Yellow; Glucose,Urine (UA) Negative (Negative); Ketones,Urine Negative (Negative); Leukocyte Esterase,Urine Small (Negative); Mucus,Urine Rare /hpf; Nitrite,Urine Negative (Negative); Protein,Urine Trace (Negative); RBC,Urine 3 /hpf (0-5); Squamous Epithelial Cell,Urine 1 /hpf (0-4); Urobilinogen,Urine <2.0 mg/dL (<2.0); WBC,Urine 16 /hpf (0-5)
[2023-02-14 02:32] LABS: Specific Gravity,Urine >1.050 (1.001-1.035)
[2023-02-14] MEDS ORDERED: MORPHINE SULFATE 4 MG/ML SYRINGE IVP STA (02:48)
[2023-02-14] MEDS ORDERED: KETOROLAC 15 MG/ML 1 ML VIAL IVP STA (02:49)
[2023-02-14] MEDS ORDERED: LOPERAMIDE 2 MG CAP PO PRN (02:49)
[2023-02-14] MEDS ORDERED: DIPHENOX-ATROP 2.5-0.025 MG 1 EACH TAB PO PRN (02:49)
[2023-02-14] MEDS ORDERED: ALBUTEROL NEBULIZED 2.5 MG/3 ML INHALATION PRN (02:49)
[2023-02-14] MEDS: ENOXAPARIN 80 MG/0.8 ML SYRINGE SQ SCH ×2 (03:00→16:40)
[2023-02-14] MEDS ORDERED: IBUPROFEN 800 MG TAB PO STA (03:11)
[2023-02-14] MEDS ORDERED: NALOXONE 0.4 MG/ML 1 ML VIAL IV PRN (03:38)
[2023-02-14] MEDS ORDERED: ACETAMINOPHEN TAB 325 MG TAB PO PRN (03:38)
[2023-02-14] MEDS ORDERED: ONDANSETRON 4 MG/2 ML VIAL IVP PRN (03:38)
[2023-02-14] MEDS ORDERED: IBUPROFEN 400 MG TAB PO PRN (03:38)
[2023-02-14] MEDS ORDERED: HYDROcodone/APAP 5-325MG 1 EACH TAB PO PRN (03:38)
[2023-02-14] MEDS ORDERED: KETOROLAC 15 MG/ML 1 ML VIAL IVP PRN (03:38)
[2023-02-14] MEDS ORDERED: MORPHINE SULFATE 4 MG/ML SYRINGE IV PRN (03:38)
[2023-02-14] MEDS: PANTOPRAZOLE 40 MG TABLET PO SCH (08:10)
[2023-02-14] MEDS ORDERED: ERGOCALCIFEROL 1,250 MCG (50,000 IU) CAPSULE PO SCH (09:00)
[2023-02-14] MEDS: methocarbamoL 750 MG TAB PO SCH ×3 (09:28→20:38)
[2023-02-14] MEDS: METOPROLOL TARTRATE 12.5 MG TAB PO SCH ×2 (09:28→20:38)
[2023-02-14] MEDS: VANCOMYCIN 1,500 MG in SODIUM CHLORIDE 0.9% 500 ML 500 ML IVPB SCH ×2 (09:29→16:40)
[2023-02-14] MEDS ORDERED: IOPAMIDOL CONTRAST (ORAL USE) VIAL PO PRN (13:07)
[2023-02-14] MEDS ORDERED: PIPERACILLIN-TAZOBACTAM 3.375 GM in SODIUM CHLORIDE 0.9% 100 ML IVPB SCH (14:00)
[2023-02-14] MEDS: HYDROmorphone 0.5 MG/0.5 ML SYRINGE IVP PRN ×3 (15:24→23:33)
--- NOTE | 2023-02-14 15:39 | P.PN ---
Subjective Progress Note Date: 02/14/23 CHIEF COMPLAINT: Cough and fever HISTORY OF PRESENT ILLNESS: This is a 47-year-old male who presented to the hospital with complaints of weakness, cough and shortness of breath with fever 3 days. Patient is essentially bedbound. He has a history of Crohn's disease and had ileocolectomy in August 2021 and then developed an anastomotic leak requiring exploratory laparotomy with washout takedown of the colonic anastomosis and ileostomy on 10/17/2021. Patient then had a fascial dehiscence and ileostomy dehiscence with retraction and revision of ileostomy and placement of retention sutures with attempted closure of fascia. He required a transfer to [facility]. Patient's surgeons and physicians are out of [facility]. He followed with before surgeons for prior colon abscess and fistula in October 2021. Patient denies any abdominal pain at this time. Denies any nausea or vomiting. However he has been febrile. As temp was high is 102. Patient reports that his ileostomy is functioning. Surgical service consulted for abdominal pain and previous abdominal surgeries. Labs: WBC 7.5HB 12.9 platelets 93 d-dimer 2.5 to sodium 132 potassium 4.2 creatinine 0.64 lactic acid 2.2 down to 1.5 Chest CTA reports no pulmonary embolism. occluded right subclavian Bypass graft. Elevated right hemidiaphragm. Atelectasis within the lower lobe and right middle lobe. PHYSICAL EXAM: VITAL SIGNS: Reviewed. GENERAL: Well-developed in no acute distress. ABDOMEN: Soft. Nondistended. Nontender. Ileostomy with large bag with liquidy stool. Stoma pink. NEUROLOGIC: Alert and oriented. Cranial nerves II through XII grossly intact. ASSESSMENT: 1. Weakness, cough, shortness of breath and fever 2. History of severe Crohn's with ileostomy 3. History of Multiple abdominal surgeries PLAN: -Recommend transfer to [facility] where patient's surgeon and physicians are located -Computed tomography scan abdomen and pelvis results are still pending -Resume patient's home TPN -Continue supportive care Physician Cash Office Worker note has been reviewed by physician. Signing provider agrees with the documented findings, assessment, and plan of care. Objective - Vital Signs Vital signs: Vital Signs Temp 98.2 F 02/14/23 14:00 Pulse 85 02/14/23 14:00 Resp 16 02/14/23 14:00 BP 124/69 02/14/23 14:00 Pulse Ox 96 02/14/23 14:00 FiO2 Intake & Output 02/13/23 02/14/23 02/14/23 18:59 06:59 18:59 Weight 90.718 kg Other: Voiding Method External Catheter - Labs CBC & Chem 7: 02/13/23 21:30 02/13/23 21:30 Labs: Abnormal Lab Results - Last 24 Hours (Table) 02/13/23 02/13/23 02/13/23 Range/Units 21:30 21:30 21:30 Hgb 12.9 L (13.0-17.5) gm/dL Plt Count 93 L (150-450) k/uL Lymphocytes # 0.6 L (1.0-4.8) k/uL PT 12.6 H (10.0-12.5) sec INR 1.2 H (<1.2) D-Dimer 2.52 H (<0.60) mg/L FEU Sodium 132 L (137-145) mmol/L Creatinine 0.64 L (0.66-1.25) mg/dL Plasma Lactic Acid Edmund (0.7-2.0) mmol/L Calcium 8.1 L (8.4-10.2) mg/dL C-Reactive Protein (<1.0) mg/dL Albumin 2.7 L (3.5-5.0) g/dL Procalcitonin (0.02-0.09) ng/mL Ur Specific [place] (1.001-1.035) Urine Protein (Negative) Ur Leukocyte Esterase (Negative) Urine WBC (0-5) /hpf Urine Mucus (None) /hpf 02/13/23 02/14/23 02/14/23 Range/Units 21:30 02:10 02:49 Hgb (13.0-17.5) gm/dL Plt Count (150-450) k/uL Lymphocytes # (1.0-4.8) k/uL PT (10.0-12.5) sec INR (<1.2) D-Dimer (<0.60) mg/L FEU Sodium (137-145) mmol/L Creatinine (0.66-1.25) mg/dL Plasma Lactic Acid Edmund 2.2 H* (0.7-2.0) mmol/L Calcium (8.4-10.2) mg/dL C-Reactive Protein 6.3 H (<1.0) mg/dL Albumin (3.5-5.0) g/dL Procalcitonin (0.02-0.09) ng/mL Ur Specific [place] >1.050 H (1.001-1.035) Urine Protein Trace H (Negative) Ur Leukocyte Esterase Small H (Negative) Urine WBC 16 H (0-5) /hpf Urine Mucus Rare H (None) /hpf 02/14/23 Range/Units 02:49 Hgb (13.0-17.5) gm/dL Plt Count (150-450) k/uL Lymphocytes # (1.0-4.8) k/uL PT (10.0-12.5) sec INR (<1.2) D-Dimer (<0.60) mg/L FEU Sodium (137-145) mmol/L Creatinine (0.66-1.25) mg/dL Plasma Lactic Acid Edmund (0.7-2.0) mmol/L Calcium (8.4-10.2) mg/dL C-Reactive Protein (<1.0) mg/dL Albumin (3.5-5.0) g/dL Procalcitonin 4.58 H (0.02-0.09) ng/mL Ur Specific [place] (1.001-1.035) Urine Protein (Negative) Ur Leukocyte Esterase (Negative) Urine WBC (0-5) /hpf Urine Mucus (None) /hpf
--- NOTE | 2023-02-14 15:48 | CT ---
EXAMINATION: CT ABDOMEN AND PELVIS WITHOUT IV CONTRAST DATE OF EXAMINATION: 02/14/2023. COMPARISON: 09/18/2022.. INDICATION: Sepsis. PROCEDURE: Axial CT of the abdomen and pelvis was performed with sagittal and coronal reformatted i mages without contrast enhancement. The exam is limited because some types of pathology may not be ad equately demonstrated due to lack of contrast enhancement. CT dose lowering techniques were used, to include: automated exposure control, adjustment for patient size, and/or use of iterative reconstruct ion. FINDINGS: LOWER CHEST : Trace right pleural effusion with partially visualized likely atelectasis or airspace disease within the right lower lobe. There is a linear band of opacity in the left lower lobe which i s likely atelectasis or scarring. ABDOMEN: Liver and Biliary system: Normal. Adrenal glands: Normal. Kidneys and ureters: There are no renal stones or hydronephrosis. No ureteral stones are present.. Spleen: Normal. Pancreas: Normal. Gallbladder: Normal. Lymph nodes, Peritoneum and mesentery: There is no mesenteric or retroperitoneal lymphadenopathy. Gastrointestinal tract: There are no dilated loops of bowel or free intraperitoneal air. . There ap pears to be a right lower quadrant ostomy. Moderate sigmoid diverticulosis without evidence of divert iculitis. Aorta/IVC: There is mild vascular calcification throughout the abdominal aorta without evidence of aneurysmal dilation. IVC normal. Abdominal wall: Large open abdominal wound appears to be present.. PELVIS: Fluid: There is no free fluid in the pelvis. Lymph Nodes: There is no pelvic or inguinal lymphadenopathy.. Urinary bladder: Normal. BONES: There are no osseous destructive lesions.. ADDITIONAL SIGNIFICANT FINDINGS: None. IMPRESSION: 1. Large open abdominal wound appears similar to the previous examination. 2. All right pleural effusion is only partially included on the evaluation. 3. No additional acute intra-abdominal findings. 4. Diverticulosis without evidence of diverticulitis.
[2023-02-14] MEDS ORDERED: MVI, ADULT NO.4 WITH VIT K 10 ML, TRACE (CONC-1ML/DOSE) 1 ML in AMINO ACID 5%-D20W+LYTE... IV SCH ×3 (20:00)
[2023-02-14] MEDS: IPRATROPIUM-ALBUTEROL 3 ML NEB INHALATION SCH (20:19)
--- NOTE | 2023-02-14 20:59 | HP ---
HISTORY AND PHYSICAL CHIEF COMPLAINT: Weakness. HISTORY OF PRESENT ILLNESS: This is a 47 gentleman with a past medical history of multiple complex medical issues and complicated history of Crohn disease, had multiple surgeries and ileostomy. The patient also was admitted recently with sepsis related to possibly the PICC line. The patient had the PICC line, through which, the patient receives 9 hours of TPN. The patient had fever also. There is no history of any headache, loss of consciousness, or seizures. Chest x-ray showed some atelectasis, and then a CT scan showed some occluded graft also. 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 PAST MEDICAL HISTORY: Reviewed includes Crohn disease, hypertension, hyperlipidemia, and colon cancer. Rest of the history and rest of the chart are also reviewed. HOME MEDICATIONS: Reviewed include Prilosec. Doses and rest of the medications are reviewed. ALLERGIES: None. FAMILY HISTORY: History of CVA/TIA. SOCIAL HISTORY: No history of smoking or alcohol intake. REVIEW OF SYSTEMS: Fourteen-point review is negative except as mentioned earlier. PHYSICAL EXAMINATION: VITAL SIGNS: Pulse is 89, blood pressure 111/62, respirations 18. HEENT: Conjunctivae are normal. NECK: No jugular venous distention. CARDIOVASCULAR: S1 and S2 muffled. RESPIRATORY: Breath sounds diminished at the bases. Few scattered rhonchi and crackles. ABDOMEN: Obese. Soft. LEGS: Status post right below-knee amputation. NERVOUS SYSTEM: Diffusely weak. SKIN: No ulcers or rashes. JOINTS: No active deforming arthropathy. Wasting of the muscles of the right hand present. LABORATORY DATA: Reviewed. ASSESSMENT: 1. Possible sepsis with acute hepatitis, primary unknown. 2. History of Crohn disease and colon cancer with multiple surgeries. 3. PICC line for TPN, chronic. 4. Hypertension. 5. Hyperlipidemia. 6. History of degenerative joint disease. RECOMMENDATIONS AND DISCUSSION: In this 47-year-old gentleman presented with multiple complex medical issues, we will monitor the patient closely. We will initiate broad-spectrum IV antibiotics. The patient had features of sepsis, the primary is unknown. I would recommend Infectious Disease evaluation. Follow the cultures. CAT scan of the abdomen and pelvis. I would also recommend Hematology/Oncology evaluation also because of the recent chemotherapy, which the patient recently completed in December 2022. Otherwise, overall prognosis remains extremely guarded. We will repeat the cultures, and we will monitor the LFTs. Again, the exact reason for the elevation for the LFTs is unknown. We will check Neurontin levels and hold Lipitor. Continue to monitor. Further recommendations to follow. MMODL / IJN: [id number] /
[2023-02-14] MEDS: CEFEPIME 2 GM in SODIUM CHLORIDE 0.9% 100 ML IVPB SCH (23:25)
[2023-02-15] MEDS: VANCOMYCIN 1,500 MG in SODIUM CHLORIDE 0.9% 500 ML 500 ML IVPB SCH ×2 (01:16→10:16)
[2023-02-15] MEDS: SODIUM CHLORIDE 0.9% 1,000 ML IV SCH ×2 (01:45→14:15)
[2023-02-15] MEDS ORDERED: AMINO ACID 5% IV SCH (03:00)
[2023-02-15] MEDS ORDERED: [UNRECOGNIZED DRUG - OTHER] IV SCH (03:00)
[2023-02-15] MEDS: ENOXAPARIN 80 MG/0.8 ML SYRINGE SQ SCH ×2 (03:10→14:12)
[2023-02-15] MEDS: HYDROmorphone 0.5 MG/0.5 ML SYRINGE IVP PRN ×4 (04:29→18:09)
[2023-02-15] MEDS: PANTOPRAZOLE 40 MG TABLET PO SCH (06:18)
[2023-02-15] MEDS ORDERED: VANCOMYCIN TROUGH DUE 1 EACH MISC MISCELLANE ONE (08:00)
[2023-02-15 08:16] LABS: Ionized Calcium 4.8 mg/dL (4.5-5.3)
[2023-02-15] MEDS: IPRATROPIUM-ALBUTEROL 3 ML NEB INHALATION SCH ×3 (08:22→19:46)
[2023-02-15 08:35] LABS: Magnesium 1.7 mg/dL (1.6-2.3); Phosphorus 3.6 mg/dL (2.5-4.5)
--- NOTE | 2023-02-15 09:31 | P.CONS ---
History of Present Illness - Reason for Consult Consult date: 02/14/23 Sepsis Requesting physician: Chepe Garrett - Chief Complaint Generalized weakness and not feeling well X 1 day - History of Present Illness Patient is a 47-year-old male with a past medical history significant for Crohn's disease s/p right colectomy subsequently did have anastomosis breakdown requiring ileostomy placement and repeated have large abdominal wound/fistula patient last admission to this hospital in October 2022 patient did have evidence of bacteremia related to the PICC line which was discontinued patient did have a repeat blood cultures were negative discharged on IV antibiotic with the patient has completed however he never follow-up in the of [facility] and the patient did have same PICC line to the left upper extremity since beginning of November 2022 patient now presenting to the ER for evaluation of weakness generalized not feeling well some coughing and shortness of breath symptom has been going on for about 3 days and apparently also have a fever of 101 F at home patient denies having any significant headache denies any chest pain or cough or sputum production patient denies having any abdominal pain no nausea no vomiting did have significant output through his ileostomy no change in that and denies any problems with his PICC line he continued to be on TPN patient on presentation to the hospital did have a fever at home 102 degrees for night mild tachycardia but no hypotension or hypoxemia White count was 7.5 creatinine 0.64 lactic acid was elevated urine has been negative influenza RSV and COVID testing was negative patient did have a chest x-ray low lung volumes elevated hemidiaphragm he also have a CT angiogram of the chest no PE occluded right subclavian to axillary bypass graft atelectasis within the lower lobes pat ient was started on vancomycin and Zosyn infectious disease was consulted for further management of antibiotic therapy Review of Systems Positive point and negatives has been mentioned in the HPI, complete review of systems was performed and all other systems are negative Past Medical History Past Medical History: CVA/TIA, Deep Vein Thrombosis (DVT) Additional Past Medical History / Comment(s): Progressing left upper thigh pain and swelling and left leg weakness. 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 Crohns. Ostomy Bag placed in 09/2021. History of Any Multi-Drug Resistant Organisms: None Reported Past Surgical History: Cholecystectomy, Orthopedic Surgery Additional Past Surgical History / Comment(s): Arm surgery, right leg below knee amputation, ostomy (2021) Past Anesthesia/Blood Transfusion Reactions: No Reported Reaction Past Psychological History: No Psychological Hx Reported Smoking Status: Former smoker Past Alcohol Use History: None Reported Past Drug Use History: None Reported - Past Family History Father Additional Family Medical History / Comment(s): DAD IN HIS TWENTIES - CAUSE UNKNOWN. Mother Family Medical History: Diabetes Mellitus Brother(s) Family Medical History: Cancer Additional Family Medical History / Comment(s): Kidney cancer as a baby. Medications and Allergies Home Medications Medication Instructions Recorded Confirmed Type Enoxaparin [Lovenox] 80 mg SQ Q12H 07/07/22 02/13/23 History Pantoprazole [Protonix] 40 mg PO DAILY 07/07/22 02/13/23 History methocarbamoL 750 mg PO TID 07/07/22 02/13/23 History Albuterol Sulfate [Albuterol 1 - 2 puff PO RT-Q4H PRN 09/10/22 02/13/23 History Sulfate Hfa] Diphenox-Atrop 2.5-0.025 mg 1 tab PO TID PRN 11/10/22 02/13/23 History [Lomotil] Ergocalciferol (Vitamin D2) 1,250 mcg PO TH 11/10/22 02/13/23 History [Drisdol (50,000 Iu)] Loperamide HCl [Loperamide] 4 mg PO Q6H PRN 11/10/22 02/13/23 History Metoprolol Tartrate [Lopressor] 12.5 mg PO BID #30 tab 11/15/22 02/13/23 Rx Allergies Allergy/AdvReac Type Severity Reaction Status Date / Time No Known Allergies Allergy Verified 02/13/23 20:54 Physical Exam Vitals: Vital Signs Temp Pulse Pulse Resp BP BP Pulse Ox 02/14/23 09:27 98.3 F 93 118/64 95 02/14/23 06:00 91 20 106/52 96 02/14/23 03:00 100.4 F H 104 H 24 144/74 97 02/14/23 00:00 99.3 F 104 H 20 112/64 95 02/13/23 23:27 102 H 02/13/23 23:17 104 H 02/13/23 22:00 110 H 24 110/67 96 02/13/23 21:00 24 02/13/23 20:49 102.0 F H 119 H 22 110/72 95 Intake and Output 02/13/23 02/14/23 02/14/23 22:59 06:59 14:59 Other: Voiding Method External Catheter Weight 90.718 kg GENERAL DESCRIPTION: Middle-aged male lying in bed, no distress. No tachypnea or accessory muscle of respiration use. HEENT: Shows Pallor , no scleral icterus. Oral mucous membrane is dry. No pharyngeal erythema or thrush NECK: Trachea central, no thyromegaly. LUNGS: Unlabored breathing. Clear to auscultation anteriorly. No wheeze or c rackle. HEART: S1, S2, regular rate and rhythm. No loud murmur ABDOMEN: Soft, no tenderness , EXTREMITIES: No edema feet SKIN: No rash, no masses palpable. NEUROLOGICAL: The patient is awake, alert, oriented x3, mood and affect normal. Results CBC & Chem 7: 02/15/23 07:47 02/15/23 07:47 Labs: Abnormal Lab Results - Last 24 Hours (Table) 02/13/23 02/13/23 02/13/23 Range/Units 21:30 21:30 21:30 Hgb 12.9 L (13.0-17.5) gm/dL Plt Count 93 L (150-450) k/uL Lymphocytes # 0.6 L (1.0-4.8) k/uL PT 12.6 H (10.0-12.5) sec INR 1.2 H (<1.2) D-Dimer 2.52 H (<0.60) mg/L FEU Sodium 132 L (137-145) mmol/L Creatinine 0.64 L (0.66-1.25) mg/dL Plasma Lactic Acid Edmund (0.7-2.0) mmol/L Calcium 8.1 L (8.4-10.2) mg/dL C-Reactive Protein (<1.0) mg/dL Albumin 2.7 L (3.5-5.0) g/dL Procalcitonin (0.02-0.09) ng/mL Ur Specific [place] (1.001-1.035) Urine Protein (Negative) Ur Leukocyte Esterase (Negative) Urine WBC (0-5) /hpf Urine Mucus (None) /hpf 02/13/23 02/14/23 02/14/23 Range/Units 21:30 02:10 02:49 Hgb (13.0-17.5) gm/dL Plt Count (150-450) k/uL Lymphocytes # (1.0-4.8) k/uL PT (10.0-12.5) sec INR (<1.2) D-Dimer (<0.60) mg/L FEU Sodium (137-145) mmol/L Creatinine (0.66-1.25) mg/dL Plasma Lactic Acid Edmund 2.2 H* (0.7-2.0) mmol/L Calcium (8.4-10.2) mg/dL C-Reactive Protein 6.3 H (<1.0) mg/dL Albumin (3.5-5.0) g/dL Procalcitonin (0.02-0.09) ng/mL Ur Specific [place] >1.050 H (1.001-1.035) Urine Protein Trace H (Negative) Ur Leukocyte Esterase Small H (Negative) Urine WBC 16 H (0-5) /hpf Urine Mucus Rare H (None) /hpf 02/14/23 Range/Units 02:49 Hgb (13.0-17.5) gm/dL Plt Count (150-450) k/uL Lymphocytes # (1.0-4.8) k/uL PT (10.0-12.5) sec INR (<1.2) D-Dimer (<0.60) mg/L FEU Sodium (137-145) mmol/L Creatinine (0.66-1.25) mg/dL Plasma Lactic Acid Edmund (0.7-2.0) mmol/L Calcium (8.4-10.2) mg/dL C-Reactive Protein (<1.0) mg/dL Albumin (3.5-5.0) g/dL Procalcitonin 4.58 H (0.02-0.09) ng/mL Ur Specific [place] (1.001-1.035) Urine Protein (Negative) Ur Leukocyte Esterase (Negative) Urine WBC (0-5) /hpf Urine Mucus (None) /hpf Assessment and Plan (1) Sepsis Status: Acute Code(s): A41.9 - SEPSIS, UNSPECIFIED ORGANISM SNOMED Code(s): 24165447 Plan: 1patient presented hospital with sepsis in this patient who did have a fever tachycardia elevated lactic acid source is likely PICC line infection with has been there for almost 3 months now underlying abdominal source less likely but not entirely excluded patient did have a negative UA CT abdominal chest was negative for any pneumonia 2-we will wait for the CT abdominal pelvis to be finalized, if any evidence of abscess may need to be transferred to his surgeon at [facility] 3-we will wait for the blood cultures to be finalized 4-empirically treat with vancomycin pharmacy to dose however discontinue Zosyn and start the patient on cefepime to decrease risk of nephrotoxicity We will follow on clinical condition and cultures to further adjust medication if needed Thank you for this consultation we will follow the patient along with you Dictation was produced using [employer] dictation software. please excuse any grammatical, word or spelling errors. Time with Patient: Greater than 30
[2023-02-15 10:50] LABS: Basophils # (A) 0.01 X 10*3/uL (0.00-0.10); Basophils % (A) 0.2 %; Eosinophils # (A) 0.17 X 10*3/uL (0.04-0.35); HCT 31.5 % (39.6-50.0); HGB 9.4 g/dL (13.0-17.0); Lymphocytes # (A) 1.63 X 10*3/uL (0.90-5.00); Lymphocytes % (A) 38.3 %; MCH 27.6 pg (27.0-32.0); MCHC 29.8 g/dL (32.0-37.0); MCV 92.6 FL (80.0-97.0); Mean Platelet Volume 12.2 FL (9.5-12.2); Monocytes # (A) 0.64 X 10*3/uL (0.20-1.00); NRBC Per 100 WBC 0 X 10*3/uL (0.00-0.01); Neutrophils # (A) 1.79 X 10*3/uL (1.80-7.70); Platelet Count 136 X 10*3/uL (140-440); RDW 15.1 % (11.5-14.5); WBC 4.26 X 10*3/uL (4.50-10.00)
[2023-02-15 11:03] LABS: Blood Urea Nitrogen 14.9 mg/dL (9.0-27.0); Calcium 8.1 mg/dL (8.7-10.3); Carbon Dioxide 22.3 mmol/L (21.6-31.8); Chloride 105 mmol/L (96-109); Glucose 138 mg/dL (70-110); Potassium 3.7 mmol/L (3.5-5.5); Sodium 134 mmol/L (135-145)
[2023-02-15] MEDS: METOPROLOL TARTRATE 12.5 MG TAB PO SCH ×2 (11:19→11:24)
[2023-02-15] MEDS: methocarbamoL 750 MG TAB PO SCH ×2 (11:19→16:48)
[2023-02-15] MEDS: CEFEPIME 2 GM in SODIUM CHLORIDE 0.9% 100 ML IVPB SCH ×2 (11:20→16:48)
--- NOTE | 2023-02-15 13:50 | P.CONS ---
History of Present Illness - Reason for Consult Consult date: 02/15/23 crohns disease Requesting physician: Chepe Garrett - Chief Complaint Fever - History of Present Illness This is a 47-year-old male who presented to the hospital with complaints of weakness, cough and shortness of breath with fever 3 days. Patient is essentially bedbound. He has a history of Crohn's disease and had ileocolectomy in August 2021 and then developed an anastomotic leak requiring exploratory laparotomy with washout takedown of the colonic anastomosis and ileostomy on 10/17/2021. Patient then had a fascial dehiscence and ileostomy dehiscence with retraction and revision of ileostomy and placement of retention sutures with attempted closure of fascia. He required a transfer to [facility]. Patient's surgeons and physicians are out of [facility]. Patient denies any abdominal pain at this time, nausea or vomiting. Had a max temp of 102. Patient reports that his ileostomy is functioning. He does get daily TPN. Currently denies being on any medication for his Crohn's disease. States his doctors are all out of [facility] but he has not followed with any recently. His loan adviser who follows him for his Crohn's is Dr. Zee but again he states that he has not followed up as directed. HEENT denies any chest pain or shortness of breath at this time. Seems very lethargic and states he just overall does not feel well. Chest CTA reports no pulmonary embolism, closure of right subclavian to axillary bypass graft. Elevated right hemidiaphragm and atelectasis within the lower lobes and right middle lobe. CT abdomen and pelvis without IV contrast reports large open abdominal wound appears similar to previous exam. Old right pleural effusion is only partially included on the evaluation. No additional acute intra-abdominal findings. Diverticulosis without evidence of diverticulitis. Labs WBC 4.2 hemoglobin 9.4 hematocrit 31 platelet count 136,000 INR 1.2 sodium 134 potassium 3.7 BUN 14.9 creatinine 0.5, positive lactic acid on admission total bilirubin 1.2 AST 42 ALT 46 alkaline phosphatase 104 C-reactive protein 6.3 Culture gram-negative bacilli Blood culture gram-negative bacilli Review of Systems REVIEW OF SYSTEMS: CARDIOPULMONARY: No chest pain or shortness of breath. Gastrointestinal: No abdominal pain. No nausea or vomiting. No hematemesis, coffee-ground emesis. No rectal bleeding, or melena. Has an open surgical abdominal wound with ileostomy and fistula drainage bag GENITOURINARY: No dysuria or hematuria. MUSCULOSKELETAL: Reports normal range of motion. SKIN: No rashes. No jaundice. ENDOCRINE: No chills, fevers. No excessive weight gain or loss. No polydipsia or polyuria. PSYCHIATRIC: Unremarkable. NEUROLOGY: No change in mental status. Denies dizziness, headache. ENT: Vision unremarkable. CONSTITUTIONAL: No recent weight loss. Reported fever for last 3 days duration, chills, malaise. Past Medical History Past Medical History: CVA/TIA, Deep Vein Thrombosis (DVT) Additional Past Medical History / Comment(s): Progressing left upper thigh pain and swelling and left leg weakness. 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 Crohns. Ostomy Bag placed in 09/2021. History of Any Multi-Drug Resistant Organisms: None Reported Past Surgical History: Cholecystectomy, Orthopedic Surgery Additional Past Surgical History / Comment(s): Arm surgery, right leg below knee amputation, ostomy (2021) Past Anesthesia/Blood Transfusion Reactions: No Reported Reaction Past Psychological History: No Psychological Hx Reported Smoking Status: Former smoker Past Alcohol Use History: None Reported Past Drug Use History: None Reported - Past Family History Father Additional Family Medical History / Comment(s): DAD IN HIS TWENTIES - CAUSE UNKNOWN. Mother Family Medical History: Diabetes Mellitus Brother(s) Family Medical History: Cancer Additional Family Medical History / Comment(s): Kidney cancer as a baby. Medications and Allergies Home Medications Medication Instructions Recorded Confirmed Type Enoxaparin [Lovenox] 80 mg SQ Q12H 07/07/22 02/13/23 History Pantoprazole [Protonix] 40 mg PO DAILY 07/07/22 02/13/23 History methocarbamoL 750 mg PO TID 07/07/22 02/13/23 History Albuterol Sulfate [Albuterol 1 - 2 puff PO RT-Q4H PRN 09/10/22 02/13/23 History Sulfate Hfa] Diphenox-Atrop 2.5-0.025 mg 1 tab PO TID PRN 11/10/22 02/13/23 History [Lomotil] Ergocalciferol (Vitamin D2) 1,250 mcg PO TH 11/10/22 02/13/23 History [Drisdol (50,000 Iu)] Loperamide HCl [Loperamide] 4 mg PO Q6H PRN 11/10/22 02/13/23 History Metoprolol Tartrate [Lopressor] 12.5 mg PO BID #30 tab 11/15/22 02/13/23 Rx Allergies Allergy/AdvReac Type Severity Reaction Status Date / Time No Known Allergies Allergy Verified 02/13/23 20:54 Physical Exam Vitals: Vital Signs Temp Pulse Pulse Resp BP Pulse Ox 02/15/23 01:30 98.7 F 82 24 112/62 96 02/14/23 20:27 84 02/14/23 20:20 84 02/14/23 20:00 98 F 87 18 125/84 98 02/14/23 14:00 98.2 F 85 16 124/69 96 02/14/23 09:27 98.3 F 93 118/64 95 Intake and Output 02/14/23 02/15/23 02/15/23 22:59 06:59 14:59 Output Total 800 750 Balance -800 -750 Output: Urine 400 500 Stool 400 250 Other: Voiding Method External Catheter Weight 90.718 kg General appearance: The patient is alert, oriented, ill-appearing, morbidly obese, appears in no acute distress. HET: Head is normocephalic and atraumatic. Conjunctiva pink. Sclera anicteric. Neck: Supple without lymphadenopathy. Trachea midline. Heart: Regular. Lungs: Equal expansion, normal respiratory effort. Abdomen: Soft, nontender, abdominal wound with wound dressing with fistula and ileostomy drainage bag. Skin: No rashes. No jaundice. Extremities: Normal skin color and turgor. Lower extremity edema. Neurological: No focal deficits. Alert and oriented x3. Results CBC & Chem 7: 02/15/23 07:47 02/15/23 07:47 Labs: Abnormal Lab Results - Last 24 Hours (Table) 02/14/23 Range/Units 02:49 Procalcitonin 4.58 H (0.02-0.09) ng/mL Microbiology - Last 24 Hours (Table) 02/13/23 23:50 Blood Culture Gram Stain - Preliminary Blood Comments: Chest CTA reports no pulmonary embolism, closure of right subclavian to axillary bypass graft. Elevated right hemidiaphragm and atelectasis within the lower lobes and right middle lobe. CT abdomen and pelvis without IV contrast reports large open abdominal wound appears similar to previous exam. Old right pleural effusion is only partially included on the evaluation. No additional acute intra-abdominal findings. Dive rticulosis without evidence of diverticulitis. Assessment and Plan (1) Crohn's disease Narrative/Plan: [id number] male with a long-standing history of complicated Crohn's disease status post multiple abdominal surgeries. He should present for fever and was found to have a positive urine culture and blood cultures for gram-negative bacilli. This is a patient who follows with multiple physicians down at [facility] including loan adviser Dr. Zee however patient has not followed in several months. He states he is not on any medications for his Crohn's disease. He denies any abdominal pain, nausea or vomiting. He is not having any bloody output. He gets his nutrition through TPN. There is no plans for gastroenterology, gastroenterology is further needed recommendation is transferred to [facility] as this Patient is an advanced case of Crohn's disease. Current Visit: No Status: Acute Code(s): K50.90 - CROHN'S DISEASE, UNSPECIFIED, WITHOUT COMPLICATIONS SNOMED Code(s): 62632725 (2) History of abdominal surgery Current Visit: Yes Status: Acute Code(s): Z98.890 - OTHER SPECIFIED POSTPROCEDURAL STATES SNOMED Code(s): 944947102 (3) Fever of unknown origin Current Visit: Yes Status: Acute Code(s): R50.9 - FEVER, UNSPECIFIED SNOMED Code(s): 9795987 (4) Bacteremia Current Visit: No Status: Acute Code(s): R78.81 - BACTEREMIA SNOMED Code(s): 0989997 Plan: 1. Continue symptomatic and supportive care 2. Continue antibiotics per recommendations from infectious disease 3. There is no indication for any gastroenterology workup at this time, this is a complicated Crohn's case and would defer any management and treatment to his gastroenterologists and surgeons at [facility] 4. Continue medical management per primary medical team 5. Continue recommendations from general surgery Thank you for allowing us to participate in the care of the patient, the GI service will sign off, gastroenterology will not be available at the hospital this weekend. If further evaluation by gastroenterology is required the patient will need transfer as per the primary team's discretion.
[2023-02-15 14:00] VITALS: BMI 28.7
[2023-02-15 14:04] VITALS: RESP 16
[2023-02-15 14:32] VITALS: BP 118/69; PULSE 88; TEMP 97.9
--- NOTE | 2023-02-15 15:28 | P.DS ---
Providers Date of admission: 02/14/23 04:02 Expected date of discharge: 02/15/23 Attending physician: Chepe Garrett Consults: 02/14/23 12:48 Consult Physician Routine Consulting Provider: Chanel Uriostegui Consult Reason/Comments: sepsis Do you want consulting provider notified?: Yes 02/14/23 13:07 Consult Physician Routine Consulting Provider: Tramaine Carvalho Consult Reason/Comments: abd pain, previous surgeries Do you want consulting provider notified?: Yes 02/14/23 13:09 Consult Physician Routine Consulting Provider: Kimberlee Peterson Consult Reason/Comments: crohns Do you want consulting provider notified?: Yes Primary care physician: Chong Uche [facility] Course: Final diagnosis Possible sepsis with acute hepatitis, primary unknown Acute urinary tract infection, present on admission with bacteremia, preliminary culture showing gram-negative bacilli History of Crohn disease and colon cancer with multiple surgeries, requiring ostomy Chronic PICC line for TPN Hypertension Hyperlipidemia History of degenerative joint disease History of right below the knee amputation History of CVA/TIA History of deep vein thrombosis GI prophylaxis DVT prophylaxis Full code Discharge disposition Patient is being transferred in a stable condition with guarded prognosis to [facility] in [place]. Patient has been accepted by Dr. Zepeda and currently awaiting a bed assignment. Patient will follow-up with Dr. Zee his surgeon/ distribution systems serviceperson out of [facility]. Patient is to continue with antibiotics in the form of cefepime currently with infectious disease recommendations as preliminary urine and blood culture showing gram-negative bacilli. General surgery as well as infectious disease recommended transfer to tertiary treatment for continuity of care given patient's complex history of Crohn's an ileostomy with multiple abdominal surgeries. Total time taken is greater than 35 minutes. Hospital course This is a 47-year-old male who was recently admitted with fevers and generalized weakness not feeling well found to have an acute urinary tract infection along with positive blood cultures being closely monitored. Patient does have an extensive history of Crohn's and has had multiple abdominal surgeries with extreme difficulties with his ileostomy and follows with surgeons out of [facility] Dr. Zee. Patient is chronically maintained on TPN with a PICC line 9 hours per night with concerns of possible PICC line infection and other underlying abdominal infections. CT abdomen was performed with continued large open abdominal wound that appears similar to previous exam with no acute intra- abdominal process noted with some diverticulosis. Patient started on antibiotics and is afebrile now and also has been started on TPN. Patient has been accepted by Dr. Zepeda at [facility] in [place] and currently awaiting a bed. Patient did have an elevated pro-calcitonin of 4.58 on admission and CRP is 6.3. VIrology testing including influenza, RSV ankle that were all negative. Patient did have a positive lactic acid of 2.2 now has normalized at 1.5 other labs appear to be within normal limits. Patient is agreeable to this transfer and currently awaiting a bed assignment. Currently no reports of chest pain, worsening shortness of breath, or palpitations. Patient is afebrile. No reports of nausea or vomiting and patient is tolerating diet. Patient will be transferred to [facility] once bed is available. Transfer team will contact the unit to provide RN information for report to be given. Case management is aware and verifying patient will require insurance authorization. Physical exam: Gen: This is a 47-year-old male who is awake, alert and oriented 3, well- developed elderly appearing, ill appearing HEENT: Head is atraumatic, normocephalic. Pupils equal, round. Sclerae is anicteric. NECK: Supple. No JVD. No lymphadenopathy. No thyromegaly. LUNGS: Diminished breath sounds bilaterally with no wheezes or rhonchi. No intercostal retractions. HEART: Regular rate and rhythm. No murmur. ABDOMEN: Soft. Obese. Bowel sounds are present. No masses. No tenderness. EXTREMITIES: No pedal edema. No calf tenderness. NEUROLOGICAL: Patient is awake, alert and oriented x3. Cranial nerves 2 through 12 are grossly intact. Diffusely weak and mostly bedbound Please refer to medication reconciliation sheet for a list of medications. The impression and plan of care has been dictated by Alyssa Hernandez, Nurse Practitioner as directed. Dr. Gerry MD I have performed a history and examination and MDM of this patient, discussed the same with the dictator, and agree with the dictator's assessment and plan as written ,documented as a scribe. Based on total visit time, I have performed more than 50% of the visit. Patient Condition at Discharge: Fair Plan - Discharge Summary Discharge Rx Participant: No New Discharge Prescriptions: No Action Enoxaparin [Lovenox] 80 mg SQ Q12H methocarbamoL 750 mg PO TID Pantoprazole [Protonix] 40 mg PO DAILY Albuterol Sulfate [Albuterol Sulfate Hfa] 1 - 2 puff PO RT-Q4H PRN PRN Reason: Shortness Of Breath Loperamide HCl [Loperamide] 4 mg PO Q6H PRN PRN Reason: Diarrhea Ergocalciferol (Vitamin D2) [Drisdol (50,000 Iu)] 1,250 mcg PO TH Metoprolol Tartrate [Lopressor] 12.5 mg PO BID #30 tab Diphenox-Atrop 2.5-0.025 mg [Lomotil] 1 tab PO TID PRN PRN Reason: Diarrhea Discharge Medication List Enoxaparin [Lovenox] 80 mg SQ Q12H 07/07/22 [History] Pantoprazole [Protonix] 40 mg PO DAILY 07/07/22 [History] methocarbamoL 750 mg PO TID 07/07/22 [History] Albuterol Sulfate [Albuterol Sulfate Hfa] 1 - 2 puff PO RT-Q4H PRN 09/10/22 [History] Diphenox-Atrop 2.5-0.025 mg [Lomotil] 1 tab PO TID PRN 11/10/22 [History] Ergocalciferol (Vitamin D2) [Drisdol (50,000 Iu)] 1,250 mcg PO TH 11/10/22 [History] Loperamide HCl [Loperamide] 4 mg PO Q6H PRN 11/10/22 [History] Metoprolol Tartrate [Lopressor] 12.5 mg PO BID #30 tab 11/15/22 [Rx] Follow up Appointment(s)/Referral(s): Chong Ivey DO [Primary Care Provider] - 1-2 days
--- NOTE | 2023-02-15 16:09 | P.PN ---
Subjective Progress Note Date: 02/15/23 CHIEF COMPLAINT: Cough and fever HISTORY OF PRESENT ILLNESS: Patient being treated for UTI with Bactrim and sepsis. Patient has a significant history of Crohn's disease and multiple surgeries with ileostomy. Patient's physicians are out of [facility]. They're working on transferring patient to before. Afebrile. WBC 4.26 Hgb 9.4. Computed tomography scan abdomen and pelvis large open abdominal wound appears similar to previous exam. No acute intra-abdominal findings. Patient denies an y abdominal pain. Denies any nausea or vomiting. PHYSICAL EXAM: VITAL SIGNS: Reviewed. GENERAL: Well-developed in no acute distress. ABDOMEN: Soft. Nondistended. Nontender. Ileostomy with large bag with liquidy stool. Stoma pink. NEUROLOGIC: Alert and oriented. Cranial nerves II through XII grossly intact. ASSESSMENT: 1. UTI with bacteremia 2. History of severe Crohn's with ileostomy 3. History of Multiple abdominal surgeries PLAN: -Recommend transfer to [facility] where patient's surgeon and physicians are located -Surgical service will sign off. Please call with any questions or concerns. Physician Marketing Editor note has been reviewed by physician. Signing provider agrees with the documented findings, assessment, and plan of care. Objective - Vital Signs Vital signs: Vital Signs Temp 97.8 F 02/15/23 07:58 Pulse 78 02/15/23 08:35 Resp 16 02/15/23 08:35 BP 114/67 02/15/23 07:58 Pulse Ox 99 02/15/23 08:22 FiO2 Intake & Output 02/14/23 02/15/23 02/15/23 18:59 06:59 18:59 Output Total 1550 650 Balance -1550 -650 Weight 90.718 kg Output: Urine 900 275 Stool 650 375 Other: Voiding Method External Catheter External Catheter External Catheter # Bowel Movements 1 - Labs CBC & Chem 7: 02/15/23 07:47 02/15/23 07:47 Labs: Abnormal Lab Results - Last 24 Hours (Table) 02/15/23 02/15/23 Range/Units 07:47 07:47 WBC 4.26 L (4.50-10.00) X 10*3/uL RBC 3.40 L (4.40-5.60) X 10*6/uL Hgb 9.4 L (13.0-17.0) g/dL Hct 31.5 L (39.6-50.0) % MCHC 29.8 L (32.0-37.0) g/dL RDW 15.1 H (11.5-14.5) % Plt Count 136 L (140-440) X 10*3/uL Neutrophils # 1.79 L (1.80-7.70) X 10*3/uL Sodium 134 L (135-145) mmol/L Creatinine 0.5 L (0.6-1.5) mg/dL BUN/Creatinine Ratio 29.80 H (12.00-20.00) Ratio Glucose 138 H (70-110) mg/dL Calcium 8.1 L (8.7-10.3) mg/dL Microbiology - Last 24 Hours (Table) 02/13/23 23:50 Blood Culture Gram Stain - Preliminary Blood
--- NOTE | 2023-02-15 17:47 | P.PN ---
Subjective Progress Note Date: 02/15/23 Principal diagnosis: Reason for follow-up with sepsis and bacteremia Patient is a 47-year-old male with a past medical history significant for Crohn's disease s/p right colectomy subsequently did have anastomosis breakdown requiring ileostomy placement and repeated have large abdominal wound/fistula , patient presented to hospital with fever concerning for a PICC line infection On today's evaluation that is 02/15/2023 the patient did have resolution of his fever and is afebrile today, the patient is breathing comfortably on 2 L nasal cannula oxygen. The patient denies shortness of breath denies any chest pain or cough, patient denies nausea/vomiting or abdominal pain. Patient did have white count of 4.26, creatinine 0.5, blood culture with gram- negative bacilli that is Serratia Objective - Vital Signs Vital signs: Vital Signs Temp 97.8 F 02/15/23 07:58 Pulse 78 02/15/23 08:35 Resp 16 02/15/23 08:35 BP 114/67 02/15/23 07:58 Pulse Ox 99 02/15/23 08:22 FiO2 Intake & Output 02/14/23 02/15/23 02/15/23 18:59 06:59 18:59 Output Total 1550 650 Balance -1550 -650 Weight 90.718 kg Output: Urine 900 275 Stool 650 375 Other: Voiding Method External Catheter External Catheter External Catheter # Bowel Movements 1 - Exam GENERAL DESCRIPTION: An elderly male lying in bed in no distress RESPIRATORY SYSTEM: Unlabored breathing , clear to auscultation anteriorly HEART: S1 S2 regular rate and rhythm , ABDOMEN: Soft , no tenderness EXTREMITIES: No edema feet - Labs CBC & Chem 7: 02/15/23 07:47 02/15/23 07:47 Labs: Abnormal Lab Results - Last 24 Hours (Table) 02/15/23 02/15/23 Range/Units 07:47 07:47 WBC 4.26 L (4.50-10.00) X 10*3/uL RBC 3.40 L (4.40-5.60) X 10*6/uL Hgb 9.4 L (13.0-17.0) g/dL Hct 31.5 L (39.6-50.0) % MCHC 29.8 L (32.0-37.0) g/dL RDW 15.1 H (11.5-14.5) % Plt Count 136 L (140-440) X 10*3/uL Neutrophils # 1.79 L (1.80-7.70) X 10*3/uL Sodium 134 L (135-145) mmol/L Creatinine 0.5 L (0.6-1.5) mg/dL BUN/Creatinine Ratio 29.80 H (12.00-20.00) Ratio Glucose 138 H (70-110) mg/dL Calcium 8.1 L (8.7-10.3) mg/dL Microbiology - Last 24 Hours (Table) 02/14/23 02:10 Urine Culture - Preliminary Urine,Voided Gram Neg Bacilli 02/13/23 23:50 Blood Culture Gram Stain - Preliminary Blood Assessment and Plan (1) Bacteremia Current Visit: No Status: Acute Code(s): R78.81 - BACTEREMIA SNOMED Code(s): 7544101 Plan: 1patient presented hospital with sepsis in this patient who did have a fever tachycardia elevated lactic acid source is likely PICC line infection with has been there for almost 3 months now underlying abdominal source less likely but not entirely excluded patient did have a negative UA CT abdominal chest was negative for any pneumonia 2-CT abdominal pelvis did not show any concern for abscess 3-patient did have a positive blood culture with the gram-negative bacilli source likely PICC line infection we will recommend his condition the PICC line and sending the tip for the culture continue with cefepime will discontinue the vancomycin Dictation was produced using [employer] dictation software. please excuse any grammatical, word or spelling errors. Time with Patient: Less than 30
--- NOTE | 2023-02-15 17:56 | PN ---
PROGRESS NOTE DATE OF SERVICE: 02/15/2023 SUBJECTIVE: This is a 47-year-old gentleman admitted with possibly sepsis, suspected infected PICC line catheter. The patient does not have many abdominal symptoms at this time. The CAT scan also did not show any new abnormalities. The white count is 4.26. Dr. Uriostegui has recommended to continue with antibiotics. Surgery has recommended the patient to be transferred. PAST MEDICAL HISTORY: Reviewed. REVIEW OF SYSTEMS: Fourteen-point review is negative except as mentioned earlier. CURRENT MEDICATIONS: Reviewed include Grubbs. Rest of the medications are noted. PHYSICAL EXAMINATION: VITAL SIGNS: Pulse is 78, blood pressure is 114/60, respirations 16. HEENT: Conjunctivae are normal. NECK: No jugular venous distention. CARDIOVASCULAR: S1 and S2 muffled. RESPIRATORY: Breath sounds diminished at the bases. Few scattered rhonchi. ABDOMEN: Soft. Obese. LEGS: No edema. No swelling. LABORATORY DATA: Reviewed. ASSESSMENT: 1. Possibly sepsis from infected PICC line, possible acute hepatitis. 2. History of Crohn disease and colon cancer with multiple surgeries. 3. PICC line for TPN, chronic. 4. Hypertension. 5. Hyperlipidemia. 6. Morbid obesity. 7. History of degenerative joint disease. 8. Multiple complex medical issues. RECOMMENDATIONS: Recommend to continue current medications. Continue with broad-spectrum IV antibiotics. Per Surgery recommendations, I would also recommend to explore the possibility of transfer to [facility]. Otherwise, continue with antibiotics. Discussed with Infectious Disease and Surgery. Prognosis is extremely guarded. Further recommendations to follow. Follow the cultures. MMODL / IJN: [id number] /
[2023-02-15] MEDS ORDERED: FAT EMULSION 20% 250 ML IV SCH (20:00)
== END 2023-02-15 21:19 | disposition short-term general hospital (02) | DRG 872 ==
LOC: EC 20:46 → 3NCARDOBS 20:47 → 4SSUR 02-14 04:02 → UNDOADMIN 02-14 04:02 → 4SSUR 02-14 12:34 → EC 02-15 21:19 → 4SSUR 02-15 23:43
PROVIDERS: ADMIT Internal Medicine Infectious Disease; ATTEND Internal Medicine Infectious Disease
PROC: 3E0436Z Introduction of Nutritional Substance into Central Vein, Percutaneous Approach (ICD-10-PCS; principal; 2023-02-13)
DX: A41.9 Sepsis, unspecified organism (principal); B17.9 Acute viral hepatitis, unspecified; K50.90 Crohn's disease, unspecified, without complications; N39.0 Urinary tract infection, site not specified; J98.11 Atelectasis; E87.20 Acidosis, unspecified; I82.721 Chronic embolism and thrombosis of deep veins of right upper extremity; Z87.891 Personal history of nicotine dependence; Z11.52 Encounter for screening for COVID-19; Z74.01 Bed confinement status; Z90.49 Acquired absence of other specified parts of digestive tract; K57.30 Diverticulosis of large intestine without perforation or abscess without bleeding; I10 Essential (primary) hypertension; E78.5 Hyperlipidemia, unspecified; Z89.511 Acquired absence of right leg below knee; Z93.2 Ileostomy status; Z83.3 Family history of diabetes mellitus; Z86.73 Personal history of transient ischemic attack (TIA), and cerebral infarction without residual deficits
CPT/HCPCS: 36415; 71046; 71275; 74176; 80048; 80053; 80202; 81001; 82330; 83605; 83735; 83880; 84100; 84145; 84478; 84484; 85025; 85379; 85610; 85652; 85730; 86140; 87040; 87070; 87077; 87086; 87186; 87636; 93005; 94640; 96361; 96365; 96366; 96367; 96368; 96372; 96375; 96376; 99285

== ENCOUNTER → 2023-10-28 | Outpatient (CLI) | payer OTHER | END | disposition home or self-care (01) | LOC: LABPRL 14:15 | PROVIDERS: ATTEND Surgery | DX: Z43.2 Encounter for attention to ileostomy (principal); K50.113 Crohn's disease of large intestine with fistula; R78.81 Bacteremia | CPT/HCPCS: 80053; 82306; 82728; 83540; 83550; 83735; 84100; 84478; 85025; 86140 ==

== ENCOUNTER 2023-12-12 12:35 | Emergency (ER) | payer OTHER ==
[2023-12-12 12:42] VITALS: RESP 18
[2023-12-12 13:44] LABS: Anisocytosis Slight; Basophils % (A) 1 %; Eosinophils # (A) 0.1 k/uL (0-0.7); Eosinophils % (A) 2 %; HCT 44.3 % (39.0-53.0); HGB 12.9 gm/dL (13.0-17.5); Hypochromasia Marked; Lymphocytes # (A) 1.3 k/uL (1.0-4.8); Lymphocytes % (A) 29 %; MCH 26.8 pg (25.0-35.0); MCHC 29.2 g/dL (31.0-37.0); Mean Platelet Volume 8.8; Monocytes # (A) 0.2 k/uL (0-1.0); Monocytes % (A) 5 %; Neutrophils # (A) 2.6 k/uL (1.3-7.7); Neutrophils % (A) 60 %; Platelet Count 172 k/uL (150-450); RBC 4.81 m/uL (4.30-5.90); RDW 17.1 % (11.5-15.5); WBC 4.4 k/uL (3.8-10.6)
[2023-12-12 13:54] LABS: Partial Thromboplastin Time 29.9 sec (22.0-30.0); Prothrombin Time 11.3 sec (10.0-12.5)
--- NOTE | 2023-12-12 14:25 | XR ---
EXAMINATION TYPE: XR chest 2V DATE OF EXAM: 12/12/2023 COMPARISON: 01/24/2023 INDICATION: Chest pain TECHNIQUE: Frontal and lateral views of the chest are obtained. FINDINGS: The heart size is mildly prominent. The pulmonary vasculature is normal. The lungs are clear. There is chronic elevation of the right diaphragm. Catheter is present on the le ft tip in the superior vena cava region. IMPRESSION: 1. Cardiomegaly. 2. No acute pulmonary process radiographically apparent. [facility], , 12/12/2023 2:23 PM
[2023-12-12 14:36] LABS: ALT 27 U/L (4-49); AST 32 U/L (17-59); African American GFR (CKD) >90 (>60 ml/min/1.73 sqM); Albumin 3.2 g/dL (3.5-5.0); Alkaline Phosphatase 111 U/L (38-126); Anion Gap -2 mmol/L; Blood Urea Nitrogen 21 mg/dL (9-20); Calcium 8.5 mg/dL (8.4-10.2); Carbon Dioxide 36 mmol/L (22-30); Chloride 105 mmol/L (98-107); Glucose 95 mg/dL (74-99); Magnesium 2.2 mg/dL (1.6-2.3); Non-African American GFR(CKD) >90 (>60 ml/min/1.73 sqM); Potassium 5.4 mmol/L (3.5-5.1); Sodium 139 mmol/L (137-145); Total Bilirubin 1.5 mg/dL (0.2-1.3)
[2023-12-12 14:42] LABS: NT-Pro-B-Type Natriuretic Pept 23 pg/mL
--- NOTE | 2023-12-12 14:43 | ED ---
URI HPI - General Chief Complaint: Upper Respiratory Infection Stated Complaint: cough Time Seen by Provider: 12/12/23 12:40 Source: patient, EMS Mode of arrival: EMS Limitations: altered mental status - History of Present Illness Initial Comments: 48-year-old male with past medical history of stroke who presents to the emergency department with low oxygen saturations. Sons are at bedside and provides a history. States that the patient had a coughing fit at home. He has had a cough for the past month. Denies productive sputum. No fevers. No sick contacts. During the coughing fit the son checked his pulse ox and it was in the 60s. This prompted him to call EMS. The patient denies feeling short of breath. He has no chest pain. No abdominal pain. Denies diarrhea. No ear pain or sore throat. No other alleviating, precipitating or modifying factors - Related Data Home Medications Medication Instructions Recorded Confirmed Enoxaparin [Lovenox] 80 mg SQ BID@899,209907/07/22 12/13/23 Pantoprazole [Protonix] 40 mg PO DAILY@89907/07/22 12/13/23 Albuterol Sulfate [Albuterol 1 - 2 puff PO RT-Q4H PRN 09/10/22 12/13/23 Sulfate Hfa] Loperamide HCl [Loperamide] 4 mg PO QID@08,12,16,20 11/10/22 12/13/23 Ferrous Sulfate [Feosol] 325 mg PO DAILY@89912/12/23 12/13/23 Heparin Sodium,Porcine/Pf [Heparin 1 dose IV DAILY PRN 12/12/23 12/13/23 500 Unit/5 ml (100/ml) Flush] Metoprolol Tartrate [Lopressor] 12.5 mg PO BID@899,209912/12/23 12/13/23 Sodium Chloride 0.9% [Saline 0.9%] 10 ml IV DAILY PRN 12/12/23 12/13/23 Vitamin A 2,400 mcg PO DAILY@89912/12/23 12/13/23 traZODone HCL [Desyrel] 50 mg PO HS PRN 12/12/23 12/13/23 Cholecalciferol (Vitamin D3) 1,250 mcg PO MOTH 12/13/23 12/13/23 [Vitamin D3 (1250 Mcg = 50,000 Iu)] Previous Rx's Medication Instructions Recorded Albuterol Inhaler [Ventolin Hfa 2 puff INHALATION QID PRN #8 gm 12/12/23 Inhaler] Omeprazole [PriLOSEC] 40 mg PO DAILY #30 cap 12/12/23 Azithromycin [Zithromax] 0 mg PO DIRECTED #6 tab 12/13/23 Promethazine 6.25MG/5Ml [Phenergan 5 ml PO Q4HR PRN #120 ml 12/13/23 Syrup] Allergies Allergy/AdvReac Type Severity Reaction Status Date / Time No Known Allergies Allergy Verified 12/13/23 08:30 Review of Systems ROS Statement: Those systems with pertinent positive or pertinent negative responses have been documented in the HPI. ROS Other: All systems not noted in ROS Statement are negative. Past Medical History Past Medical History: CVA/TIA, Deep Vein Thrombosis (DVT) Additional Past Medical History / Comment(s): Progressing left upper thigh pain and swelling and left leg weakness. 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 Crohns. Ostomy Bag placed in 09/2021. History of Any Multi-Drug Resistant Organisms: Other MDRO Past Surgical History: Cholecystectomy, Orthopedic Surgery Additional Past Surgical History / Comment(s): Arm surgery, right leg below knee amputation, ostomy (2021) Past Anesthesia/Blood Transfusion Reactions: No Reported Reaction Past Psychological History: No Psychological Hx Reported Smoking Status: Former smoker Past Alcohol Use History: None Reported Past Drug Use History: None Reported - Past Family History Father Additional Family Medical History / Comment(s): DAD IN HIS TWENTIES - CAUSE UNKNOWN. Mother Family Medical History: Diabetes Mellitus Brother(s) Family Medical History: Cancer Additional Family Medical History / Comment(s): Kidney cancer as a baby. General Exam Limitations: no limitations General appearance: alert, in no apparent distress Head exam: Present: atraumatic, normocephalic, normal inspection Eye exam: Present: normal appearance, PERRL, EOMI. Absent: scleral icterus, conjunctival injection, periorbital swelling ENT exam: Present: normal exam Neck exam: Present: normal inspection. Absent: tenderness, meningismus, lymphadenopathy Respiratory exam: Present: normal lung sounds bilaterally. Absent: respiratory distress, wheezes, rales, rhonchi, stridor Cardiovascular Exam: Present: regular rate, normal rhythm, normal heart sounds. Absent: systolic murmur, diastolic murmur, rubs, gallop, clicks GI/Abdominal exam: Present: soft, normal bowel sounds. Absent: distended, tenderness, guarding, rebound, rigid Neurological exam: Present: alert Psychiatric exam: Present: normal affect, normal mood Skin exam: Present: warm, dry, intact, normal color. Absent: rash Course Vital Signs 12/12/23 12/12/23 12/12/23 12:38 14:20 15:33 Temperature 98.0 F 98 F Pulse Rate 83 81 Respiratory 18 18 18 Rate Blood Pressure 125/79 126/81 O2 Sat by Pulse 97 97 Oximetry Medical Decision Making - Medical Decision Making Was pt. sent in by a medical professional or institution ([facility]ATHANIEL Elias, APPLIED TECHNOLOGIST, urgent care, hospital, or group home...) When possible be specific @ -No Did you speak to anyone other than the patient for history (EMS, parent, family, police, friend...)? What history was obtained from this source @ -Spoke with the patient's son for history Did you review nursing and triage notes (agree or disagree)? Why? @ -I reviewed and agree with nursing and triage notes Were old charts reviewed (outside hosp., previous admission, EMS record, old EKG, old radiological studies, urgent care reports/EKG's, group home records)? Report findings @ -No old charts were reviewed Differential Diagnosis (chest pain, altered mental status, abdominal pain women, abdominal pain men, vaginal bleeding, weakness, fever, dyspnea, syncope, headache, dizziness, GI bleed, back pain, seizure, CVA, palpatations, mental health, musculoskeletal)? @ -Differential Dyspnea: Coronary syndrome, arrhythmia, tamponade, asthma, COPD, pulmonary embolism, pneumonia, pneumothorax, pulmonary effusion, anaphylaxis, diabetic ketoacidosis, flailed chest, pulmonary contusion, diaphragmatic rupture, anemia, neuromuscular, this is not meant to be an all-inclusive list. EKG interpreted by me (3pts min.). @ -Yes and demonstrates sinus rhythm with a rate of 79. ID interval 195. QRS 104. QTc of 382. No acute ST segment elevations or depression was X-rays interpreted by me (1pt min.). @ -Yes and demonstrates no acute process CT interpreted by me (1pt min.). @ -None done U/S interpreted by me (1pt. min.). @ -None done What testing was considered but not performed or refused? (CT, X-rays, U/S, labs)? Why? @ -None What meds were considered but not given or refused? Why? @ -None Did you discuss the management of the patient with other professionals (professionals i.e. , PA, APPLIED TECHNOLOGIST, lab, RT, psych nurse, social economist, lead burner, teacher, attendance officer, home health care case manager)? Give summary @ -No Was smoking cessation discussed for >3mins.? @ -No Was critical care preformed (if so, how long)? @ -No Were there social determinants of health that impacted care today? How? (Homelessness, low income, unemployed, alcoholism, drug addiction, transportation, low edu. Level, literacy, decrease access to med. care, [facility], rehab)? @ -No Was there de-escalation of care discussed even if they declined (Discuss DNR or withdrawal of care, Hospice)? DNR status @ -No What co-morbidities impacted this encounter? (DM, HTN, Smoking, COPD, CAD, Cancer, CVA, ARF, Chemo, Hep., AIDS, mental health diagnosis, sleep apnea, morbid obesity)? @ -CVA, Crohn's disease Was patient admitted / discharged? Hospital course, mention meds given and route, prescriptions, significant lab abnormalities, going to OR and other pertinent info. @ -Upon arrival patient seen and evaluated in room 30. Thorough history and physical exam was performed. Patient is not hypoxic at this time. Laboratory studies are conducted. Chest x-ray is performed. Results are discussed with the patient. He denies having any symptoms other than the persistent cough for months. He did not demonstrate any hypoxia throughout his stay in the emergency department. Patient felt comfortable being discharged home. Family is enc ouraged to watch his oxygen level at home. He may require a sleep study if his oxygen falls while he sleeping. Patient discharged in stable condition Undiagnosed new problem with uncertain prognosis? @ -No Drug Therapy requiring intensive monitoring for toxicity (Heparin, Nitro, Insulin, Cardizem)? @ -No Were any procedures done? @ -No Diagnosis/symptom? @ -Acute cough, reported hypoxia Acute, or Chronic, or Acute on Chronic? @ -Acute Uncomplicated (without systemic symptoms) or Complicated (systemic symptoms)? @ -Complicated Side effects of treatment? @ -No Exacerbation, Progression, or Severe Exacerbation? @ -No Poses a threat to life or bodily function? How? (Chest pain, [place], [place], pneumonia, PE, COPD, DKA, ARF, appy, cholecystitis, CVA, Diverticulitis, Homicidal, Suicidal, threat to staff... and all critical care pts) @ -No - Lab Data Result diagrams: 12/12/23 13:09 12/12/23 13:09 Lab Results 12/12/23 12/12/23 12/12/23 Range/Units 13:09 13:09 13:09 WBC 4.4 (3.8-10.6) k/uL RBC 4.81 (4.30-5.90) m/uL Hgb 12.9 L (13.0-17.5) gm/dL Hct 44.3 (39.0-53.0) % MCV 92.0 (80.0-100.0) fL MCH 26.8 (25.0-35.0) pg MCHC 29.2 L (31.0-37.0) g/dL RDW 17.1 H (11.5-15.5) % Plt Count 172 (150-450) k/uL MPV 8.8 Neutrophils % 60 % Lymphocytes % 29 % Monocytes % 5 % Eosinophils % 2 % Basophils % 1 % Neutrophils # 2.6 (1.3-7.7) k/uL Lymphocytes # 1.3 (1.0-4.8) k/uL Monocytes # 0.2 (0-1.0) k/uL Eosinophils # 0.1 (0-0.7) k/uL Basophils # 0.0 (0-0.2) k/uL Hypochromasia Marked Anisocytosis Slight PT 11.3 (10.0-12.5) sec INR 1.0 (<1.2) APTT 29.9 (22.0-30.0) sec Sodium 139 (137-145) mmol/L Potassium 5.4 H (3.5-5.1) mmol/L Chloride 105 (98-107) mmol/L Carbon Dioxide 36 H (22-30) mmol/L Anion Gap -2 mmol/L BUN 21 H (9-20) mg/dL Creatinine 0.36 L (0.66-1.25) mg/dL Est GFR (CKD-EPI)AfAm >90 (>60 ml/min/1.73 sqM) Est GFR (CKD-EPI)NonAf >90 (>60 ml/min/1.73 sqM) Glucose 95 (74-99) mg/dL Calcium 8.5 (8.4-10.2) mg/dL Magnesium 2.2 (1.6-2.3) mg/dL Total Bilirubin 1.5 H (0.2-1.3) mg/dL AST 32 (17-59) U/L ALT 27 (4-49) U/L Alkaline Phosphatase 111 (38-126) U/L Troponin I (0.000-0.034) ng/mL NT-Pro-B Natriuret Pep 23 pg/mL Total Protein 7.0 (6.3-8.2) g/dL Albumin 3.2 L (3.5-5.0) g/dL Influenza Type A (PCR) (Not Detectd) Influenza Type B (PCR) (Not Detectd) RSV (PCR) (Not Detectd) SARS-CoV-2 (PCR) (Not Detectd) 12/12/23 12/12/23 Range/Units 13:09 13:09 WBC (3.8-10.6) k/uL RBC (4.30-5.90) m/uL Hgb (13.0-17.5) gm/dL Hct (39.0-53.0) % MCV (80.0-100.0) fL MCH (25.0-35.0) pg MCHC (31.0-37.0) g/dL RDW (11.5-15.5) % Plt Count (150-450) k/uL MPV Neutrophils % % Lymphocytes % % Monocytes % % Eosinophils % % Basophils % % Neutrophils # (1.3-7.7) k/uL Lymphocytes # (1.0-4.8) k/uL Monocytes # (0-1.0) k/uL Eosinophils # (0-0.7) k/uL Basophils # (0-0.2) k/uL Hypochromasia Anisocytosis PT (10.0-12.5) sec INR (<1.2) APTT (22.0-30.0) sec Sodium (137-145) mmol/L Potassium (3.5-5.1) mmol/L Chloride (98-107) mmol/L Carbon Dioxide (22-30) mmol/L Anion Gap mmol/L BUN (9-20) mg/dL Creatinine (0.66-1.25) mg/dL Est GFR (CKD-EPI)AfAm (>60 ml/min/1.73 sqM) Est GFR (CKD-EPI)NonAf (>60 ml/min/1.73 sqM) Glucose (74-99) mg/dL Calcium (8.4-10.2) mg/dL Magnesium (1.6-2.3) mg/dL Total Bilirubin (0.2-1.3) mg/dL AST (17-59) U/L ALT (4-49) U/L Alkaline Phosphatase (38-126) U/L Troponin I 0.023 (0.000-0.034) ng/mL NT-Pro-B Natriuret Pep pg/mL Total Protein (6.3-8.2) g/dL Albumin (3.5-5.0) g/dL Influenza Type A (PCR) Not Detected (Not Detectd) Influenza Type B (PCR) Not Detected (Not Detectd) RSV (PCR) Not Detected (Not Detectd) SARS-CoV-2 (PCR) Not Detected (Not Detectd) Disposition Clinical Impression: Respiratory insufficiency Disposition: HOME SELF-CARE Condition: Stable Instructions (If sedation given, give patient instructions): Chronic Cough (ED) Additional Instructions: Please follow-up with your primary care doctor. Use the inhaler to see if it helps your cough. Follow-up with the silk screen printer helper for a sleep study. Return for any new or worsening symptoms Prescriptions: Omeprazole [PriLOSEC] 40 mg PO DAILY #30 cap Albuterol Inhaler [Ventolin Hfa Inhaler] 2 puff INHALATION QID PRN #8 gm PRN Reason: Cough Is patient prescribed a controlled substance at d/c from ED?: No Referrals: Chong Ivey DO [Primary Care Provider] - 1-2 days Estela Holt MD [STAFF PHYSICIAN] - 1-2 days Time of Disposition: 15:09
[2023-12-12 15:36] VITALS: BP 126/81; PULSE 81; TEMP 98
== END 2023-12-12 15:33 | disposition home or self-care (01) ==
LOC: EC 12:35
CPT/HCPCS: 36415; 71046; 80053; 83735; 83880; 84484; 85025; 85610; 85730; 87636; 93005; 99283

== ENCOUNTER 2023-12-13 02:26 | Inpatient (IN) | payer OTHER ==
[2023-12-13 03:56] LABS: INR 1.1 (<1.2); Partial Thromboplastin Time 27.6 sec (22.0-30.0); Prothrombin Time 11.8 sec (10.0-12.5)
[2023-12-13 03:59] LABS: ALT 33 U/L (4-49); AST 33 U/L (17-59); African American GFR (CKD) >90 (>60 ml/min/1.73 sqM); Alkaline Phosphatase 110 U/L (38-126); Anion Gap -2 mmol/L; Blood Urea Nitrogen 16 mg/dL (9-20); Calcium 8.4 mg/dL (8.4-10.2); Carbon Dioxide 35 mmol/L (22-30); Chloride 105 mmol/L (98-107); Glucose 81 mg/dL (74-99); Non-African American GFR(CKD) >90 (>60 ml/min/1.73 sqM); Potassium 4.7 mmol/L (3.5-5.1); Sodium 138 mmol/L (137-145); Total Protein 6.6 g/dL (6.3-8.2)
--- NOTE | 2023-12-13 04:03 | XR ---
EXAM: XR Chest, 1 View CLINICAL HISTORY: ITS.REASON XR Reason: difficulty breathing TECHNIQUE: Frontal view of the chest. COMPARISON: No relevant prior studies available. FINDINGS: Lungs: No consolidation or mass. Elevated right hemidiaphragm Pleural space: No acute findings. Heart: Cardiomegaly. Bones/joints: No acute findings. IMPRESSION: No acute cardiopulmonary process.
[2023-12-13 04:07] LABS: NT-Pro-B-Type Natriuretic Pept 21 pg/mL
[2023-12-13 04:30] LABS: Anisocytosis Slight; Basophils % (A) 0 %; Eosinophils # (A) 0.1 k/uL (0-0.7); Eosinophils % (A) 2 %; HCT 42.6 % (39.0-53.0); Hypochromasia Marked; Lymphocytes # (A) 1.9 k/uL (1.0-4.8); Lymphocytes % (A) 30 %; MCHC 30.5 g/dL (31.0-37.0); MCV 91.8 fL (80.0-100.0); Mean Platelet Volume 9.9; Monocytes # (A) 0.4 k/uL (0-1.0); Monocytes % (A) 7 %; Neutrophils # (A) 3.7 k/uL (1.3-7.7); Neutrophils % (A) 58 %; Platelet Count 152 k/uL (150-450); RBC 4.65 m/uL (4.30-5.90); RDW 17.3 % (11.5-15.5); WBC 6.3 k/uL (3.8-10.6)
--- NOTE | 2023-12-13 06:38 | ED ---
SOB HPI <Milady Hernandez - Last Filed: 12/15/23 17:28> - General Source: patient, EMS Mode of arrival: EMS Limitations: no limitations - History of Present Illness MD Complaint: shortness of breath, cough Onset/Timin -: days(s) Severity scale (1-10): 1 Quality: dull Consistency: intermittent Improves With: nothing Worsens With: coughing Associated Symptoms: cough, sputum production <Manpreet Crocker - Last Filed: 12/30/23 14:30> - General Chief Complaint: Shortness of Breath Stated Complaint: SOB Time Seen by Provider: 12/13/23 02:38 - History of Present Illness Initial Comments: This patient is a 48-year-old man with history of stroke with hemiparesis who presents to have evaluation of cough and shortness of breath. The patient states his symptoms had started overnight into this morning. He had been seen in the department a little afternoon. Patient had gone home and then continued to have symptoms. Patient does have history of DVT but does take Eliquis and states he has not missed any doses. Patient denies chest pain. Has not noted leg swelling (Manpreet Crocker) - Related Data Home Medications Medication Instructions Recorded Confirmed Enoxaparin [Lovenox] 80 mg SQ BID@09,209907/07/22 12/26/23 Pantoprazole [Protonix] 40 mg PO DAILY@89907/07/22 12/26/23 Albuterol Sulfate [Albuterol 1 - 2 puff PO RT-Q4H PRN 09/10/22 12/26/23 Sulfate Hfa] Loperamide HCl [Loperamide] 4 mg PO QID@08,12,16,20 11/10/22 12/26/23 Ferrous Sulfate [Iron (65 MG 325 mg PO DAILY@89912/12/23 12/26/23 Elemental)] Heparin Sodium,Porcine/Pf [Heparin 1 dose IV DAILY PRN 12/12/23 12/26/23 500 Unit/5 ml (100/ml) Flush] Metoprolol Tartrate [Lopressor] 12.5 mg PO BID@0900,2100 12/12/23 12/26/23 Sodium Chloride 0.9% [Saline 0.9%] 10 ml IV DAILY PRN 12/12/23 12/26/23 Vitamin A 2,400 mcg PO DAILY@0900 12/12/23 12/26/23 traZODone HCL [Desyrel] 50 mg PO HS PRN 12/12/23 12/26/23 Cholecalciferol (Vitamin D3) 1,250 mcg PO MOTH 12/13/23 12/26/23 [Vitamin D3 (1250 Mcg = 50,000 Iu)] HYDROcodone/APAP 5-325MG [Keyser 1 tab PO Q6HR PRN 12/26/23 12/26/23 5-325] Previous Rx's Medication Instructions Recorded Omeprazole [PriLOSEC] 40 mg PO DAILY #30 cap 12/12/23 Furosemide [Lasix] 40 mg PO BID@0900,1600 #30 tab 12/25/23 Potassium Chloride ER [K-Dur 20] 20 meq PO DAILY #30 tab 12/25/23 amLODIPine [Norvasc] 5 mg PO DAILY #30 tab 12/25/23 Allergies Allergy/AdvReac Type Severity Reaction Status Date / Time No Known Allergies Allergy Verified 12/26/23 12:48 Review of Systems ROS Other: All systems not noted in ROS Statement are negative. <Milady Hernandez - Last Filed: 12/15/23 17:28> ROS Other: All systems not noted in ROS Statement are negative. Constitutional: Denies: fever, chills, weakness Respiratory: Reports: cough, dyspnea. Denies: wheezes, hemoptysis Cardiovascular: Denies: chest pain, palpitations, orthopnea, edema, syncope Gastrointestinal: Denies: abdominal pain, vomiting, diarrhea Musculoskeletal: Denies: back pain Skin: Denies: rash Neurological: Denies: headache, weakness <Manpreet Crocker - Last Filed: 12/30/23 14:30> ROS Statement: Those systems with pertinent positive or pertinent negative responses have been documented in the HPI. Past Medical History Past Medical History: CVA/TIA, Deep Vein Thrombosis (DVT) Additional Past Medical History / Comment(s): Progressing left upper thigh pain and swelling and left leg weakness. 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 Crohns. Ostomy Bag placed in 09/2021. History of Any Multi-Drug Resistant Organisms: Other MDRO Past Surgical History: Cholecystectomy, Orthopedic Surgery Additional Past Surgical History / Comment(s): Arm surgery, right leg below knee amputation, ostomy (2021) Past Anesthesia/Blood Transfusion Reactions: No Reported Reaction Past Psychological History: No Psychological Hx Reported Smoking Status: Former smoker Past Alcohol Use History: None Reported Past Drug Use History: None Reported - Past Family History Father Additional Family Medical History / Comment(s): DAD IN HIS TWENTIES - CAUSE UNKNOWN. Mother Family Medical History: Diabetes Mellitus Brother(s) Family Medical History: Cancer Additional Family Medical History / Comment(s): Kidney cancer as a baby. <LizzetteManpreet - Last Filed: 12/30/23 14:30> General Exam Limitations: no limitations General appearance: alert, in no apparent distress Head exam: Present: atraumatic, normocephalic Eye exam: Present: normal appearance. Absent: scleral icterus, conjunctival injection ENT exam: Present: normal oropharynx Neck exam: Present: normal inspection Respiratory exam: Present: rhonchi. Absent: respiratory distress, wheezes, rales, stridor, accessory muscle use, decreased breath sounds, prolonged expiratory Cardiovascular Exam: Present: regular rate, normal rhythm, normal heart sounds. Absent: systolic murmur, diastolic murmur, rubs, gallop GI/Abdominal exam: Present: soft, other (Patient does have abdominal drain and indwelling Medina catheter). Absent: distended, tenderness, guarding, rebound, r igid Extremities exam: Present: normal inspection, normal capillary refill Neurological exam: Present: alert Skin exam: Present: warm, dry, intact, normal color. Absent: rash <LizzetteManpreet - Last Filed: 12/30/23 14:30> Course Vital Signs 12/13/23 12/13/23 12/13/23 02:29 03:05 04:00 Temperature 98.2 F Pulse Rate 94 87 82 Respiratory 20 16 16 Rate Blood Pressure 153/80 132/79 122/65 O2 Sat by Pulse 96 97 96 Oximetry Fraction of Inspired Oxygen (FIO2) 12/13/23 12/13/23 12/13/23 06:00 07:53 08:50 Temperature Pulse Rate 84 89 75 Respiratory 18 20 20 Rate Blood Pressure 123/63 122/67 120/70 O2 Sat by Pulse 93 L 88 L 91 L Oximetry Fraction of Inspired Oxygen (FIO2) 12/13/23 12/13/2312/12/24 09:00 10:00 11:00 Temperature Pulse Rate 74 92 77 Respiratory 18 20 20 Rate Blood Pressure 120/70 128/63 119/71 O2 Sat by Pulse 91 L 90 L 93 L Oximetry Fraction of Inspired Oxygen (FIO2) 12/13/23 12/13/23 12/13/23 12:00 13:00 14:00 Temperature Pulse Rate 91 94 93 Respiratory 20 18 20 Rate Blood Pressure 125/66 123/75 137/73 O2 Sat by Pulse 96 93 L 90 L Oximetry Fraction of Inspired Oxygen (FIO2) 12/13/23 12/13/23 12/13/23 15:00 15:27 15:36 Temperature Pulse Rate 85 90 90 Respiratory 20 18 18 Rate Blood Pressure 126/75 O2 Sat by Pulse 92 L Oximetry Fraction of Inspired Oxygen (FIO2) 12/13/23 12/13/23 12/13/23 16:00 17:00 18:00 Temperature Pulse Rate 98 80 90 Respiratory 18 18 10 L Rate Blood Pressure 118/71 121/69 112/65 O2 Sat by Pulse 91 L Oximetry Fraction of Inspired Oxygen (FIO2) 12/13/23 12/13/23 12/13/23 18:36 18:55 18:57 Temperature Pulse Rate 98 Respiratory 20 Rate Blood Pressure 112/65 O2 Sat by Pulse 85 L 90 L Oximetry Fraction of Inspired Oxygen (FIO2) 12/13/23 12/13/23 12/13/23 20:02 20:12 23:30 Temperature Pulse Rate 92 92 89 Respiratory 26 H Rate Blood Pressure O2 Sat by Pulse 77 L Oximetry Fraction of Inspired Oxygen (FIO2) 12/13/23 12/14/23 12/14/23 23:35 01:27 01:40 Temperature Pulse Rate 101 H 92 Respiratory 28 H Rate Blood Pressure 141/74 122/45 O2 Sat by Pulse 90 L 95 Oximetry Fraction of 60 Inspired Oxygen (FIO2) 12/14/23 12/14/23 12/14/23 03:35 03:41 06:14 Temperature Pulse Rate 98 97 Respiratory 21 20 Rate Blood Pressure 103/55 127/64 O2 Sat by Pulse 95 95 Oximetry Fraction of 60 Inspired Oxygen (FIO2) 12/14/23 12/14/23 12/14/23 08:05 08:17 10:00 Temperature 99.5 F Pulse Rate 90 100 82 Respiratory 16 Rate Blood Pressure 118/62 O2 Sat by Pulse 98 Oximetry Fraction of 50 Inspired Oxygen (FIO2) 12/14/23 10:39 Temperature Pulse Rate 67 Respiratory 17 Rate Blood Pressure 106/61 O2 Sat by Pulse 98 Oximetry Fraction of Inspired Oxygen (FIO2) Medical Decision Making - Lab Data Result diagrams: 12/15/23 03:59 12/15/23 03:59 <Milady Hernandez - Last Filed: 12/15/23 17:28> - Lab Data Result diagrams: 12/24/23 06:13 12/25/23 07:02 - EKG Data -: EKG Interpreted by Me EKG shows normal: sinus rhythm, axis (Normal), intervals (Normal), QRS complexes (Incomplete right bundle branch block), ST-T waves (Normal) Rate: normal (Rate 94 bpm) <Manpreet Crocker - Last Filed: 12/30/23 14:30> - Medical Decision Making Was patient admitted / discharged? Hospital course, mention meds given and route, prescriptions, significant lab abnormalities, going to OR and other pertinent info. @ -Patient was seen by previous physician and discharged. Oxygen was shut off and patient did become hypoxemic. The hypoxia is noted when the patient is asleep. There are concerns for possible obstructive sleep apnea versus other etiologies. As the patient is hypoxic I did recommend that we admit him. Patient and his mother were agreeable to this. Patient admitted to Dr. Velazco Undiagnosed new problem with uncertain prognosis? @ -Yes Drug Therapy requiring intensive monitoring for toxicity (Heparin, Nitro, Insulin, Cardizem)? @ -No Were any procedures done? @ -No Diagnosis/symptom? @ -Acute hypoxic respiratory failure Acute, or Chronic, or Acute on Chronic? @ -Acute Uncomplicated (without systemic symptoms) or Complicated (systemic symptoms)? @ -Complicated Side effects of treatment? @ -No Exacerbation, Progression, or Severe Exacerbation? @ -No Poses a threat to life or bodily function? How? (Chest pain, USA, MD, pneumonia, PE, COPD, DKA, ARF, appy, cholecystitis, CVA, Diverticulitis, Homicidal, Holden icidal, threat to staff... and all critical care pts) @ -Yes as patient is requiring the use of oxygen (Milady Hernandez) The patient had chest x-ray that I interpreted as negative for acute infiltrate, pneumothorax, congestive heart failure Was pt. sent in by a medical professional or institution (NATHANIEL Elias, SURGICAL INSTRUMENT MECHANIC, urgent care, hospital, or half-way...) When possible be specific @ - Did you speak to anyone other than the patient for history (EMS, parent, family, police, friend...)? What history was obtained from this source @ -[Patient's family did contribute to history Did you review nursing and triage notes (agree or disagree)? Why? @ -[I reviewed and agree with nursing and triage notes] Were old charts reviewed (outside hosp., previous admission, EMS record, old EKG, old radiological studies, urgent care reports/EKG's, half-way records)? Report findings @ -[Yes, old charts were reviewed] Differential Diagnosis (chest pain, altered mental status, abdominal pain women, abdominal pain men, vaginal bleeding, weakness, fever, dyspnea, syncope, heada alfred, dizziness, GI bleed, back pain, seizure, CVA, palpatations, mental health, musculoskeletal)? @ -[Differential Dyspnea: Coronary syndrome, arrhythmia, tamponade, asthma, COPD, pulmonary embolism, pneumonia, pneumothorax, pulmonary effusion, anaphylaxis, diabetic ketoacidosis, flailed chest, pulmonary contusion, diaphragmatic rupture, anemia, neuromuscular, this is not meant to be an all-inclusive list. EKG interpreted by me (3pts min.). @ -[As above] X-rays interpreted by me (1pt min.). @ -I interpreted as above CT interpreted by me (1pt min.). @ -[None done] U/S interpreted by me (1pt. min.). @ -[None done] What testing was considered but not performed or refused? (CT, X-rays, U/S, labs)? Why? @ -[None] What meds were considered but not given or refused? Why? @ -[None] Did you discuss the management of the patient with other professionals (professionals i.e. NATHANIEL Elias, SURGICAL INSTRUMENT MECHANIC, lab, RT, psych nurse, group social worker, registered art therapist, teacher, space officer, director case)? Give summary @ -[No] Was smoking cessation discussed for >3mins.? @ -[No] Was critical care preformed (if so, how long)? @ -[No] Were there social determinants of health that impacted care today? How? (Homelessness, low income, unemployed, alcoholism, drug addiction, transportation, low edu. Level, literacy, decrease access to med. care, nursing home, rehab)? @ -[No] Was there de-escalation of care discussed even if they declined (Discuss DNR or withdrawal of care, Hospice)? DNR status @ -[No] What co-morbidities impacted this encounter? (DM, HTN, Smoking, COPD, CAD, Cancer, CVA, ARF, Chemo, Hep., AIDS, mental health diagnosis, sleep apnea, morbid obesity)? @ -[History of stroke. Renal failure. Obesity. Was patient admitted / discharged? Hospital course, mention meds given and route, prescriptions, significant lab abnormalities, going to OR and other pertinent info. @ -[Patient is 48-year-old man who is seen here in relation to cough. The workup unremarkable. The patient did have desaturation while sleeping and I did recommend sleep study. The patient then was stable to discharge with outpatient sleep study and was pending transportation home when the shift change occurred (Manpreet Crocker) - Lab Data Lab Results 12/13/23 12/13/23 12/13/23 Range/Units 03:00 03:01 03:01 WBC 6.3 (3.8-10.6) k/uL RBC 4.65 (4.30-5.90) m/uL Hgb 13.0 (13.0-17.5) gm/dL Hct 42.6 (39.0-53.0) % MCV 91.8 (80.0-100.0) fL MCH 28.0 (25.0-35.0) pg MCHC 30.5 L (31.0-37.0) g/dL RDW 17.3 H (11.5-15.5) % Plt Count 152 (150-450) k/uL MPV 9.9 Immature Gran % (Auto) % Absolute Nucleated RBC % Neutrophils % 58 % Lymphocytes % 30 % Monocytes % 7 % Eosinophils % 2 % Basophils % 0 % Immature Gran # (0.00-0.04) X 10*3/uL Neutrophils # 3.7 (1.3-7.7) k/uL Lymphocytes # 1.9 (1.0-4.8) k/uL Monocytes # 0.4 (0-1.0) k/uL Eosinophils # 0.1 (0-0.7) k/uL Basophils # 0.0 (0-0.2) k/uL NRBC/100 WBC Diff (0.00-0.01) X 10*3/uL Hypochromasia Marked Poikilocytosis Anisocytosis Slight ESR (0-15) mm/Hr PT 11.8 (10.0-12.5) sec INR 1.1 (<1.2) APTT 27.6 (22.0-30.0) sec D-Dimer 0.45 (<0.60) mg/L FEU Sample Site ABG pH (7.35-7.45) ABG pCO2 (35-45) mmHg ABG pO2 (83-108) mmHg ABG HCO3 (21-25) mmol/L ABG Total CO2 (19-24) mmol/L ABG O2 Saturation (94-97) % ABG Base Excess mmol/L Issa Test VBG pH (7.31-7.41) VBG pCO2 (37-51) mmHg VBG HCO3 (24-28) mmol/L Hemoglobin (13.0-17.5) gm/dL FiO2 % Sodium 138 (137-145) mmol/L Potassium 4.7 (3.5-5.1) mmol/L Chloride 105 (98-107) mmol/L Carbon Dioxide 35 H (22-30) mmol/L Anion Gap -2 mmol/L BUN 16 (9-20) mg/dL Creatinine 0.33 L (0.66-1.25) mg/dL Est GFR (CKD-EPI)AfAm >90 (>60 ml/min/1.73 sqM) Est GFR (CKD-EPI)NonAf >90 (>60 ml/min/1.73 sqM) Glucose 81 (74-99) mg/dL POC Glucose (mg/dL) (70-110) mg/dL POC Glu [employer] ID Plasma Lactic Acid Edmund (0.7-2.0) mmol/L Calcium 8.4 (8.4-10.2) mg/dL Magnesium (1.6-2.3) mg/dL Total Bilirubin 1.0 (0.2-1.3) mg/dL AST 33 (17-59) U/L ALT 33 (4-49) U/L Alkaline Phosphatase 110 (38-126) U/L Troponin I (0.000-0.034) ng/mL C-Reactive Protein (<1.0) mg/dL NT-Pro-B Natriuret Pep 21 pg/mL Total Protein 6.6 (6.3-8.2) g/dL Albumin 3.0 L (3.5-5.0) g/dL Procalcitonin (0.02-0.50) ng/mL Urine Color Urine Appearance (Clear) Urine pH (5.0-8.0) Ur Specific Crowley (1.001-1.035) Urine Protein (Negative) Urine Glucose (UA) (Negative) Urine Ketones (Negative) Urine Blood (Negative) Urine Nitrite (Negative) Urine Bilirubin (Negative) Urine Urobilinogen (<2.0) mg/dL Ur Leukocyte Esterase (Negative) Urine RBC (0-5) /hpf Urine WBC (0-5) /hpf Ur Squamous Epith Cells (0-4) /hpf Triple Phos Crystals (None) /hpf Amorphous Sediment (None) /hpf Urine Bacteria (None) /hpf Urine Mucus (None) /hpf Influenza Type A (PCR) (Not Detectd) Influenza Type B (PCR) (Not Detectd) RSV (PCR) (Not Detectd) SARS-CoV-2 (PCR) (Not Detectd) 12/13/23 12/13/23 12/13/23 Range/Units 03:01 03:01 03:01 WBC (3.8-10.6) k/uL RBC (4.30-5.90) m/uL Hgb (13.0-17.5) gm/dL Hct (39.0-53.0) % MCV (80.0-100.0) fL MCH (25.0-35.0) pg MCHC (31.0-37.0) g/dL RDW (11.5-15.5) % Plt Count (150-450) k/uL MPV Immature Gran % (Auto) % Absolute Nucleated RBC % Neutrophils % % Lymphocytes % % Monocytes % % Eosinophils % % Basophils % % Immature Gran # (0.00-0.04) X 10*3/uL Neutrophils # (1.3-7.7) k/uL Lymphocytes # (1.0-4.8) k/uL Monocytes # (0-1.0) k/uL Eosinophils # (0-0.7) k/uL Basophils # (0-0.2) k/uL NRBC/100 WBC Diff (0.00-0.01) X 10*3/uL Hypochromasia Poikilocytosis Anisocytosis ESR (0-15) mm/Hr PT (10.0-12.5) sec INR (<1.2) APTT (22.0-30.0) sec D-Dimer (<0.60) mg/L FEU Sample Site ABG pH (7.35-7.45) ABG pCO2 (35-45) mmHg ABG pO2 (83-108) mmHg ABG HCO3 (21-25) mmol/L ABG Total CO2 (19-24) mmol/L ABG O2 Saturation (94-97) % ABG Base Excess mmol/L Isas Test VBG pH (7.31-7.41) VBG pCO2 (37-51) mmHg VBG HCO3 (24-28) mmol/L Hemoglobin (13.0-17.5) gm/dL FiO2 % Sodium (137-145) mmol/L Potassium (3.5-5.1) mmol/L Chloride (98-107) mmol/L Carbon Dioxide (22-30) mmol/L Anion Gap mmol/L BUN (9-20) mg/dL Creatinine (0.66-1.25) mg/dL Est GFR (CKD-EPI)AfAm (>60 ml/min/1.73 sqM) Est GFR (CKD-EPI)NonAf (>60 ml/min/1.73 sqM) Glucose (74-99) mg/dL POC Glucose (mg/dL) (70-110) mg/dL POC Glu [employer] ID Plasma Lactic Acid Edmund 1.0 (0.7-2.0) mmol/L Calcium (8.4-10.2) mg/dL Magnesium (1.6-2.3) mg/dL Total Bilirubin (0.2-1.3) mg/dL AST (17-59) U/L ALT (4-49) U/L Alkaline Phosphatase (38-126) U/L Troponin I <0.012 (0.000-0.034) ng/mL C-Reactive Protein (<1.0) mg/dL NT-Pro-B Natriuret Pep pg/mL Total Protein (6.3-8.2) g/dL Albumin (3.5-5.0) g/dL Procalcitonin 0.16 (0.02-0.50) ng/mL Urine Color Urine Appearance (Clear) Urine pH (5.0-8.0) Ur Specific Crowley (1.001-1.035) Urine Protein (Negative) Urine Glucose (UA) (Negative) Urine Ketones (Negative) Urine Blood (Negative) Urine Nitrite (Negative) Urine Bilirubin (Negative) Urine Urobilinogen (<2.0) mg/dL Ur Leukocyte Esterase (Negative) Urine RBC (0-5) /hpf Urine WBC (0-5) /hpf Ur Squamous Epith Cells (0-4) /hpf Triple Phos Crystals (None) /hpf Amorphous Sediment (None) /hpf Urine Bacteria (None) /hpf Urine Mucus (None) /hpf Influenza Type A (PCR) (Not Detectd) Influenza Type B (PCR) (Not Detectd) RSV (PCR) (Not Detectd) SARS-CoV-2 (PCR) (Not Detectd) 12/13/23 12/13/23 12/13/23 Range/Units 03:05 09:35 13:00 WBC (3.8-10.6) k/uL RBC (4.30-5.90) m/uL Hgb (13.0-17.5) gm/dL Hct (39.0-53.0) % MCV (80.0-100.0) fL MCH (25.0-35.0) pg MCHC (31.0-37.0) g/dL RDW (11.5-15.5) % Plt Count (150-450) k/uL MPV Immature Gran % (Auto) % Absolute Nucleated RBC % Neutrophils % % Lymphocytes % % Monocytes % % Eosinophils % % Basophils % % Immature Gran # (0.00-0.04) X 10*3/uL Neutrophils # (1.3-7.7) k/uL Lymphocytes # (1.0-4.8) k/uL Monocytes # (0-1.0) k/uL Eosinophils # (0-0.7) k/uL Basophils # (0-0.2) k/uL NRBC/100 WBC Diff (0.00-0.01) X 10*3/uL Hypochromasia Poikilocytosis Anisocytosis ESR (0-15) mm/Hr PT (10.0-12.5) sec INR (<1.2) APTT (22.0-30.0) sec D-Dimer (<0.60) mg/L FEU Sample Site ABG pH (7.35-7.45) ABG pCO2 (35-45) mmHg ABG pO2 (83-108) mmHg ABG HCO3 (21-25) mmol/L ABG Total CO2 (19-24) mmol/L ABG O2 Saturation (94-97) % ABG Base Excess mmol/L Issa Test VBG pH 7.34 (7.31-7.41) VBG pCO2 62 H (37-51) mmHg VBG HCO3 34 H (24-28) mmol/L Hemoglobin (13.0-17.5) gm/dL FiO2 % Sodium (137-145) mmol/L Potassium (3.5-5.1) mmol/L Chloride (98-107) mmol/L Carbon Dioxide (22-30) mmol/L Anion Gap mmol/L BUN (9-20) mg/dL Creatinine (0.66-1.25) mg/dL Est GFR (CKD-EPI)AfAm (>60 ml/min/1.73 sqM) Est GFR (CKD-EPI)NonAf (>60 ml/min/1.73 sqM) Glucose (74-99) mg/dL POC Glucose (mg/dL) (70-110) mg/dL POC Glu [employer] ID Plasma Lactic Acid Edmund (0.7-2.0) mmol/L Calcium (8.4-10.2) mg/dL Magnesium (1.6-2.3) mg/dL Total Bilirubin (0.2-1.3) mg/dL AST (17-59) U/L ALT (4-49) U/L Alkaline Phosphatase (38-126) U/L Troponin I (0.000-0.034) ng/mL C-Reactive Protein (<1.0) mg/dL NT-Pro-B Natriuret Pep pg/mL Total Protein (6.3-8.2) g/dL Albumin (3.5-5.0) g/dL Procalcitonin (0.02-0.50) ng/mL Urine Color Colorless Urine Appearance Cloudy (Clear) Urine pH 8.5 H (5.0-8.0) Ur Specific Crowley 1.017 (1.001-1.035) Urine Protein Trace H (Negative) Urine Glucose (UA) Negative (Negative) Urine Ketones Negative (Negative) Urine Blood Negative (Negative) Urine Nitrite Negative (Negative) Urine Bilirubin Negative (Negative) Urine Urobilinogen <2.0 (<2.0) mg/dL Ur Leukocyte Esterase Negative (Negative) Urine RBC 3 (0-5) /hpf Urine WBC <1 (0-5) /hpf Ur Squamous Epith Cells 2 (0-4) /hpf Triple Phos Crystals Rare H (None) /hpf Amorphous Sediment Few H (None) /hpf Urine Bacteria Rare H (None) /hpf Urine Mucus Rare H (None) /hpf Influenza Type A (PCR) Not Detected (Not Detectd) Influenza Type B (PCR) Not Detected (Not Detectd) RSV (PCR) Not Detected (Not Detectd) SARS-CoV-2 (PCR) Not Detected (Not Detectd) 12/14/23 12/14/23 12/14/23 Range/Units 01:07 03:55 03:55 WBC 11.12 H (3.8-10.6) k/uL RBC 4.95 (4.30-5.90) m/uL Hgb 13.6 (13.0-17.5) gm/dL Hct 47.0 (39.0-53.0) % MCV 94.9 (80.0-100.0) fL MCH 27.5 (25.0-35.0) pg MCHC 28.9 L (31.0-37.0) g/dL RDW 17.2 H (11.5-15.5) % Plt Count 167 (150-450) k/uL MPV 13.0 H Immature Gran % (Auto) 0.40 % Absolute Nucleated RBC 0 % Neutrophils % 91.6 % Lymphocytes % 4.6 % Monocytes % 3.2 % Eosinophils % 0 % Basophils % 0.2 % Immature Gran # 0.04 (0.00-0.04) X 10*3/uL Neutrophils # 10.19 H (1.3-7.7) k/uL Lymphocytes # 0.51 L (1.0-4.8) k/uL Monocytes # 0.36 (0-1.0) k/uL Eosinophils # 0 L (0-0.7) k/uL Basophils # 0.02 (0-0.2) k/uL NRBC/100 WBC Diff 0 (0.00-0.01) X 10*3/uL Hypochromasia Poikilocytosis Anisocytosis ESR (0-15) mm/Hr PT (10.0-12.5) sec INR (<1.2) APTT (22.0-30.0) sec D-Dimer (<0.60) mg/L FEU Sample Site L brachial ABG pH 7.28 L (7.35-7.45) ABG pCO2 78 H* (35-45) mmHg ABG pO2 63 L (83-108) mmHg ABG HCO3 37 H (21-25) mmol/L ABG Total CO2 40 H (19-24) mmol/L ABG O2 Saturation 90.4 L (94-97) % ABG Base Excess 7.3 mmol/L Issa Test Yes VBG pH 7.38 (7.31-7.41) VBG pCO2 62 H (37-51) mmHg VBG HCO3 36 H (24-28) mmol/L Hemoglobin 13.9 (13.0-17.5) gm/dL FiO2 50 % Sodium (137-145) mmol/L Potassium (3.5-5.1) mmol/L Chloride (98-107) mmol/L Carbon Dioxide (22-30) mmol/L Anion Gap mmol/L BUN (9-20) mg/dL Creatinine (0.66-1.25) mg/dL Est GFR (CKD-EPI)AfAm (>60 ml/min/1.73 sqM) Est GFR (CKD-EPI)NonAf (>60 ml/min/1.73 sqM) Glucose (74-99) mg/dL POC Glucose (mg/dL) (70-110) mg/dL POC Glu [employer] ID Plasma Lactic Acid Edmund (0.7-2.0) mmol/L Calcium (8.4-10.2) mg/dL Magnesium (1.6-2.3) mg/dL Total Bilirubin (0.2-1.3) mg/dL AST (17-59) U/L ALT (4-49) U/L Alkaline Phosphatase (38-126) U/L Troponin I (0.000-0.034) ng/mL C-Reactive Protein (<1.0) mg/dL NT-Pro-B Natriuret Pep pg/mL Total Protein (6.3-8.2) g/dL Albumin (3.5-5.0) g/dL Procalcitonin (0.02-0.50) ng/mL Urine Color Urine Appearance (Clear) Urine pH (5.0-8.0) Ur Specific Crowley (1.001-1.035) Urine Protein (Negative) Urine Glucose (UA) (Negative) Urine Ketones (Negative) Urine Blood (Negative) Urine Nitrite (Negative) Urine Bilirubin (Negative) Urine Urobilinogen (<2.0) mg/dL Ur Leukocyte Esterase (Negative) Urine RBC (0-5) /hpf Urine WBC (0-5) /hpf Ur Squamous Epith Cells (0-4) /hpf Triple Phos Crystals (None) /hpf Amorphous Sediment (None) /hpf Urine Bacteria (None) /hpf Urine Mucus (None) /hpf Influenza Type A (PCR) (Not Detectd) Influenza Type B (PCR) (Not Detectd) RSV (PCR) (Not Detectd) SARS-CoV-2 (PCR) (Not Detectd) 12/14/23 12/14/23 12/14/23 Range/Units 03:55 03:55 03:55 WBC 10.0 (3.8-10.6) k/uL RBC 4.83 (4.30-5.90) m/uL Hgb 13.0 (13.0-17.5) gm/dL Hct 44.6 (39.0-53.0) % MCV 92.3 (80.0-100.0) fL MCH 26.9 (25.0-35.0) pg MCHC 29.1 L (31.0-37.0) g/dL RDW 17.1 H (11.5-15.5) % Plt Count 155 (150-450) k/uL MPV 9.3 Immature Gran % (Auto) % Absolute Nucleated RBC % Neutrophils % 92 % Lymphocytes % 5 % Monocytes % 3 % Eosinophils % 0 % Basophils % 0 % Immature Gran # (0.00-0.04) X 10*3/uL Neutrophils # 9.1 H (1.3-7.7) k/uL Lymphocytes # 0.5 L (1.0-4.8) k/uL Monocytes # 0.3 (0-1.0) k/uL Eosinophils # 0.0 (0-0.7) k/uL Basophils # 0.0 (0-0.2) k/uL NRBC/100 WBC Diff (0.00-0.01) X 10*3/uL Hypochromasia Marked Poikilocytosis Anisocytosis Slight ESR (0-15) mm/Hr PT (10.0-12.5) sec INR (<1.2) APTT (22.0-30.0) sec D-Dimer (<0.60) mg/L FEU Sample Site ABG pH (7.35-7.45) ABG pCO2 (35-45) mmHg ABG pO2 (83-108) mmHg ABG HCO3 (21-25) mmol/L ABG Total CO2 (19-24) mmol/L ABG O2 Saturation (94-97) % ABG Base Excess mmol/L Issa Test VBG pH (7.31-7.41) VBG pCO2 (37-51) mmHg VBG HCO3 (24-28) mmol/L Hemoglobin (13.0-17.5) gm/dL FiO2 % Sodium 138 (137-145) mmol/L Potassium 4.4 (3.5-5.1) mmol/L Chloride 102 (98-107) mmol/L Carbon Dioxide 34 H (22-30) mmol/L Anion Gap 2 mmol/L BUN 21 H (9-20) mg/dL Creatinine 0.36 L (0.66-1.25) mg/dL Est GFR (CKD-EPI)AfAm >90 (>60 ml/min/1.73 sqM) Est GFR (CKD-EPI)NonAf >90 (>60 ml/min/1.73 sqM) Glucose 236 H (74-99) mg/dL POC Glucose (mg/dL) (70-110) mg/dL POC Glu [employer] ID Plasma Lactic Acid Edmund (0.7-2.0) mmol/L Calcium 8.2 L (8.4-10.2) mg/dL Magnesium (1.6-2.3) mg/dL Total Bilirubin (0.2-1.3) mg/dL AST (17-59) U/L ALT (4-49) U/L Alkaline Phosphatase (38-126) U/L Troponin I <0.012 (0.000-0.034) ng/mL C-Reactive Protein (<1.0) mg/dL NT-Pro-B Natriuret Pep pg/mL Total Protein (6.3-8.2) g/dL Albumin (3.5-5.0) g/dL Procalcitonin (0.02-0.50) ng/mL Urine Color Urine Appearance (Clear) Urine pH (5.0-8.0) Ur Specific Crowley (1.001-1.035) Urine Protein (Negative) Urine Glucose (UA) (Negative) Urine Ketones (Negative) Urine Blood (Negative) Urine Nitrite (Negative) Urine Bilirubin (Negative) Urine Urobilinogen (<2.0) mg/dL Ur Leukocyte Esterase (Negative) Urine RBC (0-5) /hpf Urine WBC (0-5) /hpf Ur Squamous Epith Cells (0-4) /hpf Triple Phos Crystals (None) /hpf Amorphous Sediment (None) /hpf Urine Bacteria (None) /hpf Urine Mucus (None) /hpf Influenza Type A (PCR) (Not Detectd) Influenza Type B (PCR) (Not Detectd) RSV (PCR) (Not Detectd) SARS-CoV-2 (PCR) (Not Detectd) 12/14/23 12/14/23 12/14/23 Range/Units 03:55 10:32 13:23 WBC (3.8-10.6) k/uL RBC (4.30-5.90) m/uL Hgb (13.0-17.5) gm/dL Hct (39.0-53.0) % MCV (80.0-100.0) fL MCH (25.0-35.0) pg MCHC (31.0-37.0) g/dL RDW (11.5-15.5) % Plt Count (150-450) k/uL MPV Immature Gran % (Auto) % Absolute Nucleated RBC % Neutrophils % % Lymphocytes % % Monocytes % % Eosinophils % % Basophils % % Immature Gran # (0.00-0.04) X 10*3/uL Neutrophils # (1.3-7.7) k/uL Lymphocytes # (1.0-4.8) k/uL Monocytes # (0-1.0) k/uL Eosinophils # (0-0.7) k/uL Basophils # (0-0.2) k/uL NRBC/100 WBC Diff (0.00-0.01) X 10*3/uL Hypochromasia Poikilocytosis Anisocytosis ESR (0-15) mm/Hr PT (10.0-12.5) sec INR (<1.2) APTT (22.0-30.0) sec D-Dimer (<0.60) mg/L FEU Sample Site Right Radial ABG pH 7.50 H (7.35-7.45) ABG pCO2 45 (35-45) mmHg ABG pO2 75 L (83-108) mmHg ABG HCO3 35 H (21-25) mmol/L ABG Total CO2 36 H (19-24) mmol/L ABG O2 Saturation 97.1 H (94-97) % ABG Base Excess 10.1 mmol/L Issa Test Yes VBG pH (7.31-7.41) VBG pCO2 (37-51) mmHg VBG HCO3 (24-28) mmol/L Hemoglobin 13.6 (13.0-17.5) gm/dL FiO2 100 % Sodium (137-145) mmol/L Potassium (3.5-5.1) mmol/L Chloride (98-107) mmol/L Carbon Dioxide (22-30) mmol/L Anion Gap mmol/L BUN (9-20) mg/dL Creatinine (0.66-1.25) mg/dL Est GFR (CKD-EPI)AfAm (>60 ml/min/1.73 sqM) Est GFR (CKD-EPI)NonAf (>60 ml/min/1.73 sqM) Glucose (74-99) mg/dL POC Glucose (mg/dL) 91 (70-110) mg/dL POC Glu [employer] ID [place] Plasma Lactic Acid Edmund (0.7-2.0) mmol/L Calcium (8.4-10.2) mg/dL Magnesium (1.6-2.3) mg/dL Total Bilirubin (0.2-1.3) mg/dL AST (17-59) U/L ALT (4-49) U/L Alkaline Phosphatase (38-126) U/L Troponin I (0.000-0.034) ng/mL C-Reactive Protein (<1.0) mg/dL NT-Pro-B Natriuret Pep 44 pg/mL Total Protein (6.3-8.2) g/dL Albumin (3.5-5.0) g/dL Procalcitonin (0.02-0.50) ng/mL Urine Color Urine Appearance (Clear) Urine pH (5.0-8.0) Ur Specific Crowley (1.001-1.035) Urine Protein (Negative) Urine Glucose (UA) (Negative) Urine Ketones (Negative) Urine Blood (Negative) Urine Nitrite (Negative) Urine Bilirubin (Negative) Urine Urobilinogen (<2.0) mg/dL Ur Leukocyte Esterase (Negative) Urine RBC (0-5) /hpf Urine WBC (0-5) /hpf Ur Squamous Epith Cells (0-4) /hpf Triple Phos Crystals (None) /hpf Amorphous Sediment (None) /hpf Urine Bacteria (None) /hpf Urine Mucus (None) /hpf Influenza Type A (PCR) (Not Detectd) Influenza Type B (PCR) (Not Detectd) RSV (PCR) (Not Detectd) SARS-CoV-2 (PCR) (Not Detectd) 12/15/23 12/15/23 12/16/23 Range/Units 03:59 03:59 04:49 WBC 13.4 H (3.8-10.6) k/uL RBC 4.60 (4.30-5.90) m/uL Hgb 12.4 L (13.0-17.5) gm/dL Hct 41.8 (39.0-53.0) % MCV 90.9 (80.0-100.0) fL MCH 26.9 (25.0-35.0) pg MCHC 29.6 L (31.0-37.0) g/dL RDW 17.4 H (11.5-15.5) % Plt Count 196 (150-450) k/uL MPV 9.9 Immature Gran % (Auto) % Absolute Nucleated RBC % Neutrophils % 83 % Lymphocytes % 12 % Monocytes % 4 % Eosinophils % 0 % Basophils % 0 % Immature Gran # (0.00-0.04) X 10*3/uL Neutrophils # 11.1 H (1.3-7.7) k/uL Lymphocytes # 1.6 (1.0-4.8) k/uL Monocytes # 0.5 (0-1.0) k/uL Eosinophils # 0.0 (0-0.7) k/uL Basophils # 0.0 (0-0.2) k/uL NRBC/100 WBC Diff (0.00-0.01) X 10*3/uL Hypochromasia Marked Poikilocytosis Anisocytosis Slight ESR (0-15) mm/Hr PT (10.0-12.5) sec INR (<1.2) APTT (22.0-30.0) sec D-Dimer (<0.60) mg/L FEU Sample Site ABG pH (7.35-7.45) ABG pCO2 (35-45) mmHg ABG pO2 (83-108) mmHg ABG HCO3 (21-25) mmol/L ABG Total CO2 (19-24) mmol/L ABG O2 Saturation (94-97) % ABG Base Excess mmol/L Issa Test VBG pH (7.31-7.41) VBG pCO2 (37-51) mmHg VBG HCO3 (24-28) mmol/L Hemoglobin (13.0-17.5) gm/dL FiO2 % Sodium 136 L (137-145) mmol/L Potassium 4.5 (3.5-5.1) mmol/L Chloride 108 H (98-107) mmol/L Carbon Dioxide 25 (22-30) mmol/L Anion Gap 3 mmol/L BUN 18 (9-20) mg/dL Creatinine 0.35 L (0.66-1.25) mg/dL Est GFR (CKD-EPI)AfAm >90 (>60 ml/min/1.73 sqM) Est GFR (CKD-EPI)NonAf >90 (>60 ml/min/1.73 sqM) Glucose 125 H (74-99) mg/dL POC Glucose (mg/dL) (70-110) mg/dL POC Glu [employer] ID Plasma Lactic Acid Edmund (0.7-2.0) mmol/L Calcium 8.0 L (8.4-10.2) mg/dL Magnesium 1.8 (1.6-2.3) mg/dL Total Bilirubin 1.4 H (0.2-1.3) mg/dL AST 34 (17-59) U/L ALT 20 (4-49) U/L Alkaline Phosphatase 90 (38-126) U/L Troponin I (0.000-0.034) ng/mL C-Reactive Protein (<1.0) mg/dL NT-Pro-B Natriuret Pep pg/mL Total Protein 6.2 L (6.3-8.2) g/dL Albumin 2.7 L (3.5-5.0) g/dL Procalcitonin 0.85 H (0.02-0.50) ng/mL Urine Color Urine Appearance (Clear) Urine pH (5.0-8.0) Ur Specific Crowley (1.001-1.035) Urine Protein (Negative) Urine Glucose (UA) (Negative) Urine Ketones (Negative) Urine Blood (Negative) Urine Nitrite (Negative) Urine Bilirubin (Negative) Urine Urobilinogen (<2.0) mg/dL Ur Leukocyte Esterase (Negative) Urine RBC (0-5) /hpf Urine WBC (0-5) /hpf Ur Squamous Epith Cells (0-4) /hpf Triple Phos Crystals (None) /hpf Amorphous Sediment (None) /hpf Urine Bacteria (None) /hpf Urine Mucus (None) /hpf Influenza Type A (PCR) (Not Detectd) Influenza Type B (PCR) (Not Detectd) RSV (PCR) (Not Detectd) SARS-CoV-2 (PCR) (Not Detectd) 12/16/23 12/16/23 12/16/23 Range/Units 04:49 04:49 05:35 WBC 8.0 (3.8-10.6) k/uL RBC 4.36 (4.30-5.90) m/uL Hgb 11.9 L (13.0-17.5) gm/dL Hct 39.1 (39.0-53.0) % MCV 89.7 (80.0-100.0) fL MCH 27.3 (25.0-35.0) pg MCHC 30.4 L (31.0-37.0) g/dL RDW 18.0 H (11.5-15.5) % Plt Count 163 (150-450) k/uL MPV 10.6 Immature Gran % (Auto) % Absolute Nucleated RBC % Neutrophils % 71 % Lymphocytes % 21 % Monocytes % 4 % Eosinophils % 2 % Basophils % 0 % Immature Gran # (0.00-0.04) X 10*3/uL Neutrophils # 5.7 (1.3-7.7) k/uL Lymphocytes # 1.7 (1.0-4.8) k/uL Monocytes # 0.4 (0-1.0) k/uL Eosinophils # 0.2 (0-0.7) k/uL Basophils # 0.0 (0-0.2) k/uL NRBC/100 WBC Diff (0.00-0.01) X 10*3/uL Hypochromasia Marked Poikilocytosis Slight Anisocytosis Slight ESR 56 H (0-15) mm/Hr PT (10.0-12.5) sec INR (<1.2) APTT (22.0-30.0) sec D-Dimer (<0.60) mg/L FEU Sample Site screven ABG pH 7.39 (7.35-7.45) ABG pCO2 43 (35-45) mmHg ABG pO2 82 L (83-108) mmHg ABG HCO3 26 H (21-25) mmol/L ABG Total CO2 27 H (19-24) mmol/L ABG O2 Saturation 96.9 (94-97) % ABG Base Excess 0.3 mmol/L Issa Test Yes VBG pH (7.31-7.41) VBG pCO2 (37-51) mmHg VBG HCO3 (24-28) mmol/L Hemoglobin (13.0-17.5) gm/dL FiO2 50 % Sodium 138 (137-145) mmol/L Potassium 2.6 L* (3.5-5.1) mmol/L Chloride 111 H (98-107) mmol/L Carbon Dioxide 24 (22-30) mmol/L Anion Gap 3 mmol/L BUN 9 (9-20) mg/dL Creatinine 0.41 L (0.66-1.25) mg/dL Est GFR (CKD-EPI)AfAm >90 (>60 ml/min/1.73 sqM) Est GFR (CKD-EPI)NonAf >90 (>60 ml/min/1.73 sqM) Glucose 86 (74-99) mg/dL POC Glucose (mg/dL) (70-110) mg/dL POC Glu [employer] ID Plasma Lactic Acid Edmund (0.7-2.0) mmol/L Calcium 8.1 L (8.4-10.2) mg/dL Magnesium 1.7 (1.6-2.3) mg/dL Total Bilirubin (0.2-1.3) mg/dL AST (17-59) U/L ALT (4-49) U/L Alkaline Phosphatase (38-126) U/L Troponin I (0.000-0.034) ng/mL C-Reactive Protein 13.2 H (<1.0) mg/dL NT-Pro-B Natriuret Pep pg/mL Total Protein (6.3-8.2) g/dL Albumin (3.5-5.0) g/dL Procalcitonin (0.02-0.50) ng/mL Urine Color Urine Appearance (Clear) Urine pH (5.0-8.0) Ur Specific Crowley (1.001-1.035) Urine Protein (Negative) Urine Glucose (UA) (Negative) Urine Ketones (Negative) Urine Blood (Negative) Urine Nitrite (Negative) Urine Bilirubin (Negative) Urine Urobilinogen (<2.0) mg/dL Ur Leukocyte Esterase (Negative) Urine RBC (0-5) /hpf Urine WBC (0-5) /hpf Ur Squamous Epith Cells (0-4) /hpf Triple Phos Crystals (None) /hpf Amorphous Sediment (None) /hpf Urine Bacteria (None) /hpf Urine Mucus (None) /hpf Influenza Type A (PCR) (Not Detectd) Influenza Type B (PCR) (Not Detectd) RSV (PCR) (Not Detectd) SARS-CoV-2 (PCR) (Not Detectd) 12/16/23 12/16/23 Range/Units 06:19 06:32 WBC (3.8-10.6) k/uL RBC (4.30-5.90) m/uL Hgb (13.0-17.5) gm/dL Hct (39.0-53.0) % MCV (80.0-100.0) fL MCH (25.0-35.0) pg MCHC (31.0-37.0) g/dL RDW (11.5-15.5) % Plt Count (150-450) k/uL MPV Immature Gran % (Auto) % Absolute Nucleated RBC % Neutrophils % % Lymphocytes % % Monocytes % % Eosinophils % % Basophils % % Immature Gran # (0.00-0.04) X 10*3/uL Neutrophils # (1.3-7.7) k/uL Lymphocytes # (1.0-4.8) k/uL Monocytes # (0-1.0) k/uL Eosinophils # (0-0.7) k/uL Basophils # (0-0.2) k/uL NRBC/100 WBC Diff (0.00-0.01) X 10*3/uL Hypochromasia Poikilocytosis Anisocytosis ESR (0-15) mm/Hr PT (10.0-12.5) sec INR (<1.2) APTT (22.0-30.0) sec D-Dimer (<0.60) mg/L FEU Sample Site ABG pH (7.35-7.45) ABG pCO2 (35-45) mmHg ABG pO2 (83-108) mmHg ABG HCO3 (21-25) mmol/L ABG Total CO2 (19-24) mmol/L ABG O2 Saturation (94-97) % ABG Base Excess mmol/L Issa Test VBG pH (7.31-7.41) VBG pCO2 (37-51) mmHg VBG HCO3 (24-28) mmol/L Hemoglobin (13.0-17.5) gm/dL FiO2 % Sodium (137-145) mmol/L Potassium (3.5-5.1) mmol/L Chloride (98-107) mmol/L Carbon Dioxide (22-30) mmol/L Anion Gap mmol/L BUN (9-20) mg/dL Creatinine (0.66-1.25) mg/dL Est GFR (CKD-EPI)AfAm (>60 ml/min/1.73 sqM) Est GFR (CKD-EPI)NonAf (>60 ml/min/1.73 sqM) Glucose (74-99) mg/dL POC Glucose (mg/dL) 71 99 (70-110) mg/dL POC Glu [employer] ID Sciotti Crispin Sciotti Crispin Plasma Lactic Acid Edmund (0.7-2.0) mmol/L Calcium (8.4-10.2) mg/dL Magnesium (1.6-2.3) mg/dL Total Bilirubin (0.2-1.3) mg/dL AST (17-59) U/L ALT (4-49) U/L Alkaline Phosphatase (38-126) U/L Troponin I (0.000-0.034) ng/mL C-Reactive Protein (<1.0) mg/dL NT-Pro-B Natriuret Pep pg/mL Total Protein (6.3-8.2) g/dL Albumin (3.5-5.0) g/dL Procalcitonin (0.02-0.50) ng/mL Urine Color Urine Appearance (Clear) Urine pH (5.0-8.0) Ur Specific Crowley (1.001-1.035) Urine Protein (Negative) Urine Glucose (UA) (Negative) Urine Ketones (Negative) Urine Blood (Negative) Urine Nitrite (Negative) Urine Bilirubin (Negative) Urine Urobilinogen (<2.0) mg/dL Ur Leukocyte Esterase (Negative) Urine RBC (0-5) /hpf Urine WBC (0-5) /hpf Ur Squamous Epith Cells (0-4) /hpf Triple Phos Crystals (None) /hpf Amorphous Sediment (None) /hpf Urine Bacteria (None) /hpf Urine Mucus (None) /hpf Influenza Type A (PCR) (Not Detectd) Influenza Type B (PCR) (Not Detectd) RSV (PCR) (Not Detectd) SARS-CoV-2 (PCR) (Not Detectd) Disposition Is patient prescribed a controlled substance at d/c from ED?: No Time of Disposition: 08:06 Decision to Admit Reason: Admit from EC Decision Date: 12/13/23 Decision Time: 08:06 <Milady Hernandez - Last Filed: 12/15/23 17:28> Is patient prescribed a controlled substance at d/c from ED?: No <Manpreet Crocker - Last Filed: 12/30/23 14:30> Clinical Impression: Laryngotracheitis, Hypoxia Disposition: ADMITTED IP TO THIS HOSP Condition: Fair
[2023-12-13] MEDS: predniSONE 20 MG TAB PO STA (06:43)
[2023-12-13] MEDS: AZITHROMYCIN 500 MG TAB PO STA (06:49)
[2023-12-13] MEDS: PROMETHAZINE HCL 6.25 MG/5 ML CUP PO STA (06:54)
[2023-12-13] MEDS ORDERED: NALOXONE 0.4 MG/ML 1 ML VIAL IV PRN (08:06)
[2023-12-13 09:46] LABS: VBG PH 7.34 (7.31-7.41)
--- NOTE | 2023-12-13 12:22 | P.HPIM ---
History of Present Illness This is a pleasant 48 years old male with past medical history of Crohn disease complicated with bowel perforation requiring ileostomy, also has 2 fistula in his anterior abdominal Wall, patient also has left upper chest portal to receive TPN, patient also able to take oral feeding. 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 He has history of respiratory failure requiring tracheostomy insertion with subsequent removal Patient lives at home with his 2 sons. Information were obtained with the help of his mother at bedside. Patient presents to the hospital at this time because of respiratory difficulty, he came to emergency room yesterday for the same reason and he was discharged home, he was noticed to have hypoxia with coughing but that is improved yesterday. At home he have recurrence of his symptoms so he decided to come to emergency room today. Patient somewhat drowsy and could not participate in history however has per mother he is drowsy because of lack of sleep and he is usually more awake. Patient denies chest pain, no abdominal pain, he has ileostomy bag in place with some loose stool, as per mother at bedside this is his normal consistency. He has external urinary catheter. Denies dysuria or urgency. Both legs looks weak, has right BKA, no swelling or cellulitis. Patient is afebrile, he was hypoxic 88% on room air. Slightly tachypneic around 20. He has unremarkable CBC, BMP, liver enzymes, troponin x 1 less than 0.012. proBNP is 21. Influenza A and type B, RSV, SARS (coronavirus) are undetected D-dimer is negative at 0.45 EKG showing sinus rhythm at [address]-T changes Chest x-ray showing low volume but no acute process per radiologist Venous pH is low normal at 7.3, bicarb is elevated 34 and pCO2 is elevated at 62. Patient received prednisone 40 mg and Zithromax prior to hospitalization. Review of Systems Review of systems CONSTITUTIONAL: No fever, no malaise, no fatigue. HEENT: No recent visual problems or hearing problems. Denied any sore throat. CARDIOVASCULAR: No orthopnea, PND, no palpitations, no syncope. PULMONARY: No chest wall tenderness, no hemoptysis. GASTROINTESTINAL: No diarrhea, no nausea, no vomiting, no abdominal pain. Normoactive bowel sounds. NEUROLOGICAL: No headaches, no weakness, no numbness. HEMATOLOGICAL: Denies any bleeding or petechiae. GENITOURINARY: Denies any burning micturition, frequency, or urgency. MUSCULOSKELETAL/RHEUMATOLOGICAL: Denies any joint pain, swelling, or any muscle pain. ENDOCRINE: Denies any polyuria or polydipsia. Past Medical History Past Medical History: CVA/TIA, Deep Vein Thrombosis (DVT) Additional Past Medical History / Comment(s): Crohn disease and he had a complicated bowel perforation requiring ileostomy and he has ongoing abdominal wall fistula on TPN and oral intake , Hx CVA in 2012, RUE (DVT) and RLE, BKA in the RLE due to an arterial clot/gangrene,. Previous respiratory failure requiring tracheostomy insertion and subsequent removal History of Any Multi-Drug Resistant Organisms: Other MDRO Past Surgical History: Cholecystectomy, Orthopedic Surgery Additional Past Surgical History / Comment(s): Arm surgery, right leg below knee amputation, ostomy (2021) Past Anesthesia/Blood Transfusion Reactions: No Reported Reaction Past Psychological History: No Psychological Hx Reported Smoking Status: Former smoker Past Alcohol Use History: None Reported Past Drug Use History: None Reported - Past Family History Father Additional Family Medical History / Comment(s): DAD IN HIS TWENTIES - CAUSE UNKNOWN. Mother Family Medical History: Diabetes Mellitus Brother(s) Family Medical History: Cancer Additional Family Medical History / Comment(s): Kidney cancer as a baby. Medications and Allergies Home Medications Medication Instructions Recorded Confirmed Type Enoxaparin [Lovenox] 80 mg SQ BID@0900,2100 07/07/22 12/13/23 History Pantoprazole [Protonix] 40 mg PO DAILY@0900 07/07/22 12/13/23 History Albuterol Sulfate [Albuterol 1 - 2 puff PO RT-Q4H PRN 09/10/22 12/13/23 History Sulfate Hfa] Loperamide HCl [Loperamide] 4 mg PO QID@08,12,16,20 11/10/22 12/13/23 History Albuterol Inhaler [Ventolin Hfa 2 puff INHALATION QID PRN #8 gm 12/12/23 12/13/23 Rx Inhaler] Ferrous Sulfate [Feosol] 325 mg PO DAILY@0900 12/12/23 12/13/23 History Heparin Sodium,Porcine/Pf [Heparin 1 dose IV DAILY PRN 12/12/23 12/13/23 History 500 Unit/5 ml (100/ml) Flush] Metoprolol Tartrate [Lopressor] 12.5 mg PO BID@0900,2100 12/12/23 12/13/23 History Omeprazole [PriLOSEC] 40 mg PO DAILY #30 cap 12/12/23 12/13/23 Rx Sodium Chloride 0.9% [Saline 0.9%] 10 ml IV DAILY PRN 12/12/23 12/13/23 History Vitamin A 2,400 mcg PO DAILY@0900 12/12/23 12/13/23 History traZODone HCL [Desyrel] 50 mg PO HS PRN 12/12/23 12/13/23 History Azithromycin [Zithromax] 0 mg PO DIRECTED #6 tab 12/13/23 Rx Cholecalciferol (Vitamin D3) 1,250 mcg PO MOTH 12/13/23 12/13/23 History [Vitamin D3 (1250 Mcg = 50,000 Iu)] Promethazine 6.25MG/5Ml [Phenergan 5 ml PO Q4HR PRN #120 ml 12/13/23 Rx Syrup] Allergies Allergy/AdvReac Type Severity Reaction Status Date / Time No Known Allergies Allergy Verified 12/13/23 08:30 Physical Exam Vitals: Vital Signs Temp Pulse Resp BP Pulse Ox 12/13/23 11:00 77 20 119/71 93 L 12/13/23 10:00 92 20 128/63 90 L 12/13/23 09:00 74 18 120/70 91 L 12/13/23 08:50 75 20 120/70 91 L 12/13/23 07:53 89 20 122/67 88 L 12/13/23 06:00 84 18 123/63 93 L 12/13/23 04:00 82 16 122/65 96 12/13/23 03:05 87 16 132/79 97 12/13/23 02:29 98.2 F 94 20 153/80 96 Intake and Output 12/12/23 12/13/23 12/13/23 22:59 06:59 14:59 Other: Weight 90.718 kg -GENERAL: The patient is alert and oriented x3,, drowsy, not in any acute distress. Well developed, well nourished. Obese HEENT: Pupils are round and equally reacting to light. EOMI. No scleral icterus. No conjunctival pallor. Normocephalic, atraumatic. No pharyngeal erythema. No thyromegaly. CARDIOVASCULAR: S1 and S2 present. No murmurs, rubs, or gallops. -PULMONARY: Decreased breath sounds on both sides, no wheezing , no crackles. ABDOMEN: Soft, nontender, nondistended, normoactive bowel sounds. No palpable organomegaly. MUSCULOSKELETAL: No joint swelling or deformity. EXTREMITIES: No cyanosis, clubbing, or pedal edema. Old right BKA NEUROLOGICAL: Gross neurological examination did not reveal any focal deficits. SKIN: No rashes. no petechiae. Results CBC & Chem 7: 12/13/23 03:01 12/13/23 03:01 Labs: Abnormal Lab Results - Last 24 Hours (Table) 12/13/23 12/13/23 12/13/23 Range/Units 03:01 03:01 09:35 MCHC 30.5 L (31.0-37.0) g/dL RDW 17.3 H (11.5-15.5) % VBG pCO2 62 H (37-51) mmHg VBG HCO3 34 H (24-28) mmol/L Carbon Dioxide 35 H (22-30) mmol/L Creatinine 0.33 L (0.66-1.25) mg/dL Albumin 3.0 L (3.5-5.0) g/dL Assessment and Plan Assessment: Acute hypoxic hypercapnic respiratory failure Acute respiratory acidosis with compensated metabolic alkalosis Possible obesity hypoventilation syndrome, possible elements of acute COPD cannot be ruled out Metabolic encephalopathy history of Crohn disease complicated with bowel perforation requiring ileostomy, also has 2 fistula in his anterior abdominal Wall, patient also has left upper chest portal to receive TPN, patient also able to take oral feeding He has history of respiratory failure requiring tracheostomy insertion with subsequent removal 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 Continue same treatment. Continue with symptomatic treatment. Resume home medication. Monitor labs and vitals. DVT and GI prophylaxis. Further recommendations as per clinical course of the patient DVT prophylaxis: Subcutaneous heparin GI Prophylaxis: Pepcid PT/OT: Pending Prognosis is guarded
[2023-12-13 14:46] LABS: Amorphous Sediment,Urine Few /hpf; Appearance,Urine Cloudy (Clear); Bacteria,Urine Rare /hpf; Bilirubin,Urine Negative (Negative); Blood,Urine Negative (Negative); Color,Urine Colorless; Glucose,Urine (UA) Negative (Negative); Ketones,Urine Negative (Negative); Leukocyte Esterase,Urine Negative (Negative); Mucus,Urine Rare /hpf; Nitrite,Urine Negative (Negative); PH, Urine 8.5 (5.0-8.0); Protein,Urine Trace (Negative); RBC,Urine 3 /hpf (0-5); Specific Gravity,Urine 1.017 (1.001-1.035); Squamous Epithelial Cell,Urine 2 /hpf (0-4); Triple Phosphate Crystal,Urine Rare /hpf; Urobilinogen,Urine <2.0 mg/dL (<2.0); WBC,Urine <1 /hpf (0-5)
[2023-12-13] MEDS: guaiFENesin-DM 100-10MG/5ML 10 ML CUP PO SCH (15:10)
--- NOTE | 2023-12-13 15:11 | P.CNPUL ---
History of Present Illness Consult date: 12/13/23 Reason for consult: dyspnea, hypoxemia History of present illness: This is a 48-year-old male patient, brought into the hospital because of hypox emia that was noted at home. The patient is not having any worsening shortness of breath. No reported aspiration. Occasional cough and congestion. No significant sputum production. The patient has a very extensive past medical history. He is known to have previous history of Crohn's disease that has been complicated by bowel perforation for which the patient required a bowel resection and currently has an ileostomy. 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 Note that his course was rather complicated following his previous bowel surgery. The patient had prolonged ventilator dependent respiratory failure requiring intubation mechanical ventilation and subsequent tracheostomy tube insertion. The patient also required hemodialysis for renal failure and renal replacement therapy. Ultimately, dialysis has been discontinued as the patient renal function improved and the tracheostomy tube was also eliminated. 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 His last evaluation here in our hospital was and February 2023 and at that time, the patient came into us with generalized weakness and fatigue and he was treated for sepsis/bacteremia and the treatment was successful. He continues to have a port in his left anterior chest area through which she receives TPN to supplement his oral intake. His current white cell count at 6.3 with a heme of 13 and a platelet count of 152. Sodium is 138 with a potassium level of 4.7, BUN 16 with a creatinine of 0.33. His UA is negative. Viral screen is also negative. The patient's slightly lethargic. He is arousable and awake. He is currently on 3 L of oxygen by nasal cannula with pulse ox 93%. His chest x-ray shows chronic elevation of the right hemidiaphragm without any acute cardiopulmonary process. The patient has been maintained on anticoagulation on outpatient basis and he is on Lovenox 80 mg subcu every 12 hours. 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 Previous respiratory failure requiring tracheostomy insertion and subsequent removal History of Any Multi-Drug Resistant Organisms: Other MDRO Past Surgical History: Cholecystectomy, Orthopedic Surgery Additional Past Surgical History / Comment(s): Arm surgery, right leg below knee amputation, ostomy (2021) Past Anesthesia/Blood Transfusion Reactions: No Reported Reaction Past Psychological History: No Psychological Hx Reported Smoking Status: Former smoker Past Alcohol Use History: None Reported Past Drug Use History: None Reported - Past Family History Father Additional Family Medical History / Comment(s): DAD IN HIS TWENTIES - CAUSE UNKNOWN. Mother Family Medical History: Diabetes Mellitus Brother(s) Family Medical History: Cancer Additional Family Medical History / Comment(s): Kidney cancer as a baby. Medications and Allergies Home Medications Medication Instructions Recorded Confirmed Type Enoxaparin [Lovenox] 80 mg SQ BID@0900,2100 07/07/22 12/13/23 History Pantoprazole [Protonix] 40 mg PO DAILY@0900 07/07/22 12/13/23 History Albuterol Sulfate [Albuterol 1 - 2 puff PO RT-Q4H PRN 09/10/22 12/13/23 History Sulfate Hfa] Loperamide HCl [Loperamide] 4 mg PO QID@08,12,16,20 11/10/22 12/13/23 History Albuterol Inhaler [Ventolin Hfa 2 puff INHALATION QID PRN #8 gm 12/12/23 12/13/23 Rx Inhaler] Ferrous Sulfate [Feosol] 325 mg PO DAILY@0900 12/12/23 12/13/23 History Heparin Sodium,Porcine/Pf [Heparin 1 dose IV DAILY PRN 12/12/23 12/13/23 History 500 Unit/5 ml (100/ml) Flush] Metoprolol Tartrate [Lopressor] 12.5 mg PO BID@0900,2100 12/12/23 12/13/23 History Omeprazole [PriLOSEC] 40 mg PO DAILY #30 cap 12/12/23 12/13/23 Rx Sodium Chloride 0.9% [Saline 0.9%] 10 ml IV DAILY PRN 12/12/23 12/13/23 History Vitamin A 2,400 mcg PO DAILY@0900 12/12/23 12/13/23 History traZODone HCL [Desyrel] 50 mg PO HS PRN 12/12/23 12/13/23 History Azithromycin [Zithromax] 0 mg PO DIRECTED #6 tab 12/13/23 Rx Cholecalciferol (Vitamin D3) 1,250 mcg PO MOTH 12/13/23 12/13/23 History [Vitamin D3 (1250 Mcg = 50,000 Iu)] Promethazine 6.25MG/5Ml [Phenergan 5 ml PO Q4HR PRN #120 ml 12/13/23 Rx Syrup] Allergies Allergy/AdvReac Type Severity Reaction Status Date / Time No Known Allergies Allergy Verified 12/13/23 08:30 Physical Exam Vitals: Vital Signs Temp Pulse Resp BP Pulse Ox 12/13/23 11:00 77 20 119/71 93 L 12/13/23 10:00 92 20 128/63 90 L 12/13/23 09:00 74 18 120/70 91 L 12/13/23 08:50 75 20 120/70 91 L 12/13/23 07:53 89 20 122/67 88 L 12/13/23 06:00 84 18 123/63 93 L 12/13/23 04:00 82 16 122/65 96 12/13/23 03:05 87 16 132/79 97 12/13/23 02:29 98.2 F 94 20 153/80 96 Intake and Output 12/12/23 12/13/23 12/13/23 22:59 06:59 14:59 Other: Weight 90.718 kg No acute distress, awake and alert and communicating Awake and alert at 3 L per minute nasal cannula. Breathing is nonlabored, Head exam was generally normal. There was no scleral icterus or corneal arcus. Mucous membranes were moist. Neck supple. Full range of motion. No adenopathy thyromegaly or neck vein d istention. Cardiovascular examination reveals regular rhythm rate. S1-S2 normal. No S3 or S4. No discernible murmur noted. Lungs reveal bilateral coarse rhonchi throughout. Breath sounds equal b ilaterally. No wheezes or crackles. Diminished breath on the lung bases more so on the right Abdomen distended, with a midline dressing from previous surgery. No bowel sounds noted. The abdomen was soft, non-tender, and without masses, organomegaly, or appreciable enlargement of the abdominal aorta. The patient has a midline abdominal incision which is dry clean and intact and it is well-healed. The patient has an ileostomy and the patient also has anterior abdominal wall fistula which is draining Extremities are intact. No cyanosis. Clubbing noted. The patient has a right [id number]-urlo amputation. Skin is without rash or lesion. Neurologic examination cannot be assessed. Results - Laboratory Findings CBC and BMP: 12/13/23 03:01 12/13/23 03:01 PT/INR, D-dimer PT 11.8 sec (10.0-12.5) 12/13/23 03:00 INR 1.1 (<1.2) 12/13/23 03:00 D-Dimer 0.45 mg/L FEU (<0.60) 12/13/23 03:00 Abnormal lab findings: Abnormal Labs 12/13/23 12/13/23 12/13/23 03:01 03:01 09:35 MCHC 30.5 L RDW 17.3 H VBG pCO2 62 H VBG HCO3 34 H Carbon Dioxide 35 H Creatinine 0.33 L Albumin 3.0 L - Diagnostic Findings Chest x-ray: image reviewed Assessment and Plan Plan: Acute hypoxic respiratory failure, currently the patient is on 3 L of O2 by a nasal cannula. No evidence of pneumonia. No evidence of aspiration. No evide nce of any sepsis at least at this point in time. Pulm embolism is felt to be less likely as the patient has been receiving Lovenox on outpatient basis, therapeutic dose is 80 mg subcu every 12 hours. No leukocytosis. No hemodynamic instability. The patient is clinically stable Chronic elevation of the right hemidiaphragm History of Crohn's disease complicated by bowel perforation and the patient underwent a colectomy with diverting ileostomy. 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 Patient is also on TPN for nutritional support in addition to oral intake. Previous history of sepsis and the patient had a gram-negative Serratia marcescens septicemia back in 02/13/2023 History of CVA/TIA. Residual left-sided weakness History of DVT. Maintained on Lovenox injections 80 mg subcu every 12 hours. History of right below the knee amputation, this is probably due to a acute vascular insult to his right lower extremity complicated by development of a foot gangrene Chronic right upper extremity DVT. Prior history of tobacco use. History of cardiac asystole/arrest on 2021 which showed CPR and epinephrine with return of spontaneous circulation TPN for nutritional support Obesity Previous history of tracheostomy with subsequent reversal. Respiratory failure Chronic right hemidiaphragmatic elevation, likely paralysis Plan Will monitor the patient's oxygenation carefully. Continue anticoagulation with Lovenox 80 mg SQ every 12 hours. Do a sepsis workup. Will perform a CTA of the chest if there is no clear explanation for his underlying acute hypoxemia. Chest x-ray findings are currently nonspecific and there is chronic elevation of the right hemidiaphragm Aspiration precautions Blood cultures Wound care and ileostomy care Resume home medications Will follow
[2023-12-13] MEDS: ALBUTEROL NEBULIZED 2.5 MG/3 ML INHALATION PRN (15:26)
[2023-12-13] MEDS: ACETAMINOPHEN TAB 325 MG TAB PO PRN (16:32)
[2023-12-13] MEDS: METOPROLOL TARTRATE 12.5 MG TAB PO SCH (21:14)
[2023-12-13] MEDS: methylPREDNISolone SOD SUCCI 40 MG/ML 1 ML VIAL IV SCH (21:14)
[2023-12-13] MEDS: ENOXAPARIN 80 MG/0.8 ML SYRINGE SQ SCH (21:55)
--- NOTE | 2023-12-14 01:04 | XR ---
EXAM: XR Chest, 1 View CLINICAL HISTORY: ITS.REASON XR Reason: Respiratory Issues TECHNIQUE: Frontal view of the chest. COMPARISON: 12/13/2023. FINDINGS: Lungs: There is now complete opacification of the right hemithorax presumably on the base of a large right pleural effusion. Left lung is well aerated. Minimal deviation of the trachea right of midline. Consider extensive atelectasis of the right lung. Pleural space: See above. Heart: There is cardiomegaly. Mediastinum: Unremarkable. Normal mediastinal contour. Bones/joints: Unremarkable. No acute fracture. Tubes, lines and devices: Left subclavian catheter is noted in place with its tip at the level of the mid superior vena cava. Upper abdomen: Status post cholecystectomy. IMPRESSION: 1. Complete opacification of the right thorax presumably at the base of large pleural effusion. 2. Cardiomegaly. 3. Consider extensive atelectasis at the right lung. 4. CT imaging of the chest is advised to follow-up for further correlation.
[2023-12-14 01:10] LABS: ABG Base Excess 7.3 mmol/L; ABG HCO3 37 mmol/L (21-25); ABG Oxygen Saturation 90.4 % (94-97); ABG PH 7.28 (7.35-7.45); ABG PO2 63 mmHg (83-108); ABG TCO2 40 mmol/L (19-24); Allen Test Performed? Yes
[2023-12-14 01:16] LABS: ABG PCO2 78 mmHg (35-45)
[2023-12-14] MEDS: FUROSEMIDE 10 MG/ML 4 ML VIAL IV STA (01:19)
[2023-12-14 04:20] LABS: Anisocytosis Slight; Basophils % (A) 0 %; Eosinophils % (A) 0 %; HCT 44.6 % (39.0-53.0); Hypochromasia Marked; Lymphocytes # (A) 0.5 k/uL (1.0-4.8); Lymphocytes % (A) 5 %; MCH 26.9 pg (25.0-35.0); MCHC 29.1 g/dL (31.0-37.0); MCV 92.3 fL (80.0-100.0); Mean Platelet Volume 9.3; Monocytes # (A) 0.3 k/uL (0-1.0); Monocytes % (A) 3 %; Neutrophils # (A) 9.1 k/uL (1.3-7.7); Neutrophils % (A) 92 %; Platelet Count 155 k/uL (150-450); RBC 4.83 m/uL (4.30-5.90); RDW 17.1 % (11.5-15.5); VBG PH 7.38 (7.31-7.41)
[2023-12-14 06:46] LABS: African American GFR (CKD) >90 (>60 ml/min/1.73 sqM); Anion Gap 2 mmol/L; Blood Urea Nitrogen 21 mg/dL (9-20); Calcium 8.2 mg/dL (8.4-10.2); Carbon Dioxide 34 mmol/L (22-30); Chloride 102 mmol/L (98-107); Glucose 236 mg/dL (74-99); Non-African American GFR(CKD) >90 (>60 ml/min/1.73 sqM); Potassium 4.4 mmol/L (3.5-5.1); Sodium 138 mmol/L (137-145)
[2023-12-14] MEDS: FERROUS SULFATE 325 MG TAB PO SCH (08:41)
[2023-12-14] MEDS: PANTOPRAZOLE 40 MG TABLET PO SCH (08:41)
[2023-12-14 09:45] LABS: Basophils # (A) 0.02 X 10*3/uL (0.00-0.10); Basophils % (A) 0.2 %; Eosinophils # (A) 0 X 10*3/uL (0.04-0.35); Eosinophils % (A) 0 %; HGB 13.6 g/dL (13.0-17.0); Lymphocytes # (A) 0.51 X 10*3/uL (0.90-5.00); Lymphocytes % (A) 4.6 %; MCH 27.5 pg (27.0-32.0); MCHC 28.9 g/dL (32.0-37.0); MCV 94.9 FL (80.0-97.0); Monocytes # (A) 0.36 X 10*3/uL (0.20-1.00); Monocytes % (A) 3.2 %; NRBC Per 100 WBC 0 X 10*3/uL (0.00-0.01); Neutrophils # (A) 10.19 X 10*3/uL (1.80-7.70); Neutrophils % (A) 91.6 %; Platelet Count 167 X 10*3/uL (140-440); RBC 4.95 X 10*6/uL (4.40-5.60); RDW 17.2 % (11.5-14.5); WBC 11.12 X 10*3/uL (4.50-10.00)
--- NOTE | 2023-12-14 10:39 | P.PN ---
Subjective This is a pleasant 48 years old male with past medical history of Crohn disease complicated with bowel perforation requiring ileostomy, also has 2 fistula in his anterior abdominal Wall, patient also has left upper chest portal to receive TPN, patient also able to take oral feeding. 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 He has history of respiratory failure requiring tracheostomy insertion with subsequent removal Patient lives at home with his 2 sons. Information were obtained with the help of his mother at bedside. Patient presents to the hospital at this time because of respiratory difficulty, he came to emergency room yesterday for the same reason and he was discharged home, he was noticed to have hypoxia with coughing but that is improved yesterday. At home he have recurrence of his symptoms so he decided to come to emergency room today. Patient somewhat drowsy and could not participate in history however has per mother he is drowsy because of lack of sleep and he is usually more awake. Patient denies chest pain, no abdominal pain, he has ileostomy bag in place with some loose stool, as per mother at bedside this is his normal consistency. He has external urinary catheter. Denies dysuria or urgency. Both legs looks weak, has right BKA, no swelling or cellulitis. Patient is afebrile, he was hypoxic 88% on room air. Slightly tachypneic around 20. He has unremarkable CBC, BMP, liver enzymes, troponin x 1 less than 0.012. proBNP is 21. Influenza A and type B, RSV, SARS (coronavirus) are undetected D-dimer is negative at 0.45 EKG showing sinus rhythm at [address]-T changes Chest x-ray showing low volume but no acute process per radiologist Venous pH is low normal at 7.3, bicarb is elevated 34 and pCO2 is elevated at 62. Patient received prednisone 40 mg and Zithromax prior to hospitalization. 12/13 Patient developed complete collapse of the right lung, which is apparent on the chest x-ray this morning and he is developing more hypoxia he was saturation 77 and 5 L, currently he is kept on BiPAP He has no fever Blood pressure stable 127/64 Patient started on Zosyn also he is on IV Solu-Medrol 40 mg twice daily He is on a Protonix and therapeutic dose of Lovenox Pro- Calcitonin is low at 0.16 pH is low with high pCO2. Patient is going to be transferred to the ICU Review of systems CONSTITUTIONAL: No fever, no malaise, no fatigue. HEENT: No recent visual problems or hearing problems. Denied any sore throa HEMATOLOGICAL: Denies any bleeding or petechiae. GENITOURINARY: Denies any burning micturition, frequency, or urgency. MUSCULOSKELETAL/RHEUMATOLOGICAL: Denies any joint pain, swelling, or any muscle pain. ENDOCRINE: Denies any polyuria or polydipsia. Active Medications Generic Name Dose Route Start Last Admin Trade Name Freq PRN Reason Stop Dose Admin Acetaminophen 325 mg 12/13/23 15:43 12/13/23 16:32 Acetaminophen Tab 325 Mg Tab PO 325 mg Q6HR PRN Administration Fever and/ or Pain Albuterol Sulfate 2.5 mg 12/13/23 09:44 12/14/23 08:04 Albuterol Nebulized 2.5 Mg/3 Ml INHALATION 2.5 mg RT-QID PRN Administration Cough Enoxaparin Sodium 80 mg 12/13/23 21:00 12/14/23 09:28 Enoxaparin 80 Mg/0.8 Ml Syringe SQ 80 mg BID@0900,2100 ANNIE Administration Ergocalciferol 1,250 mcg 12/16/23 09:00 Ergocalciferol 1,250 Mcg (50,000 Iu) Capsule PO MOTH ANNIE Ferrous Sulfate 325 mg 12/14/23 09:00 12/14/23 08:41 Ferrous Sulfate 325 Mg Tab PO 325 mg DAILY@0900 ANNIE Administration Guaifenesin/Dextromethorphan 10 ml 12/13/23 14:00 12/14/23 08:01 Guaifenesin-Dm 100-10mg/5ml 10 Ml Cup PO 12/16/23 13:59 10 ml Q6HR ANNIE Administration Piperacillin Sod/Tazobactam 100 mls @ 25 mls/hr 12/14/23 09:45 Sod 3.375 gm/ Sodium Chloride IVPB Q8HR [facility] Protocol Methylprednisolone Sodium Succinate 40 mg 12/14/23 21:00 Methylprednisolone Sod Succi 40 Mg/Ml 1 Ml Vial IV Q12HR ANNIE Metoprolol Tartrate 12.5 mg 12/13/23 21:00 12/14/23 08:41 Metoprolol Tartrate 12.5 Mg Tab PO 12.5 mg BID@0900,2100 ANNIE Administration Naloxone HCl 0.2 mg 12/13/23 08:06 Naloxone 0.4 Mg/Ml 1 Ml Vial IV Q2M PRN Opioid Reversal Pantoprazole Sodium 40 mg 12/14/23 09:00 12/14/23 08:41 Pantoprazole 40 Mg Tablet PO 40 mg DAILY@0900 ANNIE Administration Trazodone HCl 50 mg 12/13/23 09:44 Trazodone Hcl 50 Mg Tab PO HS PRN sleep Objective - Vital Signs Vital signs: Vital Signs Temp 98.2 F 12/13/23 02:29 Pulse 100 12/14/23 08:17 Resp 20 12/14/23 06:14 BP 127/64 12/14/23 06:14 Pulse Ox 95 12/14/23 06:14 FiO2 50 12/14/23 08:05 - Exam GENERAL: The patient is alert and oriented x3, not in any acute distress. Well developed, well nourished. HEENT: Pupils are round and equally reacting to light. EOMI. No scleral icterus. No conjunctival pallor. Normocephalic, atraumatic. No pharyngeal erythema. No thyromegaly. CARDIOVASCULAR: S1 and S2 present. No murmurs, rubs, or gallops. PULMONARY: Decreased breath sounds on the right side, no wheezing , no crackles. ABDOMEN: Soft, nontender, nondistended, normoactive bowel sounds. No palpable organomegaly. MUSCULOSKELETAL: No joint swelling or deformity. EXTREMITIES: No cyanosis, clubbing, or pedal edema. NEUROLOGICAL: Gross neurological examination did not reveal any focal deficits. SKIN: No rashes. no petechiae. - Labs CBC & Chem 7: 12/14/23 03:55 12/14/23 03:55 Labs: Abnormal Lab Results - Last 24 Hours (Table) 12/13/23 12/14/23 12/14/23 Range/Units 13:00 01:07 03:55 WBC (4.50-10.00) X 10*3/uL MCHC (32.0-37.0) g/dL RDW (11.5-14.5) % MPV (9.5-12.2) FL Neutrophils # (1.80-7.70) X 10*3/uL Lymphocytes # (0.90-5.00) X 10*3/uL Eosinophils # (0.04-0.35) X 10*3/uL ABG pH 7.28 L (7.35-7.45) ABG pCO2 78 H* (35-45) mmHg ABG pO2 63 L (83-108) mmHg ABG HCO3 37 H (21-25) mmol/L ABG Total CO2 40 H (19-24) mmol/L ABG O2 Saturation 90.4 L (94-97) % VBG pCO2 62 H (37-51) mmHg VBG HCO3 36 H (24-28) mmol/L Carbon Dioxide (22-30) mmol/L BUN (9-20) mg/dL Creatinine (0.66-1.25) mg/dL Glucose (74-99) mg/dL Calcium (8.4-10.2) mg/dL Urine pH 8.5 H (5.0-8.0) Urine Protein Trace H (Negative) Triple Phos Crystals Rare H (None) /hpf Amorphous Sediment Few H (None) /hpf Urine Bacteria Rare H (None) /hpf Urine Mucus Rare H (None) /hpf 12/14/23 12/14/23 12/14/23 Range/Units 03:55 03:55 03:55 WBC 11.12 H (4.50-10.00) X 10*3/uL MCHC 28.9 L 29.1 L (32.0-37.0) g/dL RDW 17.2 H 17.1 H (11.5-14.5) % MPV 13.0 H (9.5-12.2) FL Neutrophils # 10.19 H 9.1 H (1.80-7.70) X 10*3/uL Lymphocytes # 0.51 L 0.5 L (0.90-5.00) X 10*3/uL Eosinophils # 0 L (0.04-0.35) X 10*3/uL ABG pH (7.35-7.45) ABG pCO2 (35-45) mmHg ABG pO2 (83-108) mmHg ABG HCO3 (21-25) mmol/L ABG Total CO2 (19-24) mmol/L ABG O2 Saturation (94-97) % VBG pCO2 (37-51) mmHg VBG HCO3 (24-28) mmol/L Carbon Dioxide 34 H (22-30) mmol/L BUN 21 H (9-20) mg/dL Creatinine 0.36 L (0.66-1.25) mg/dL Glucose 236 H (74-99) mg/dL Calcium 8.2 L (8.4-10.2) mg/dL Urine pH (5.0-8.0) Urine Protein (Negative) Triple Phos Crystals (None) /hpf Amorphous Sediment (None) /hpf Urine Bacteria (None) /hpf Urine Mucus (None) /hpf Assessment and Plan Assessment: Acute hypoxic hypercapnic respiratory failure Acute respiratory acidosis with compensated metabolic alkalosis Possible obesity hypoventilation syndrome, possible elements of acute COPD cannot be ruled out Metabolic encephalopathy history of Crohn disease complicated with bowel perforation requiring ileostomy, also has 2 fistula in his anterior abdominal Wall, patient also has left upper chest portal to receive TPN, patient also able to take oral feeding He has history of respiratory failure requiring tracheostomy insertion with subsequent removal right lower extremity arterial clot and gangrene status post BKA He has history of CVA in 2012 with left hemiparesis Plan: Patient is going to be moved to the ICU Continue with BiPAP for respiratory support Patient started on Zosyn Continue with steroids, patient started on IV Solu-Medrol 40 mg twice daily Continue with oxygen therapy and bronchodilator Check pro- Calcitonin low Pulmonary team consult Labs and medication were reviewed.. Continue same treatment. Continue with symptomatic treatment. Resume home medication. Monitor labs and vitals. DVT and GI prophylaxis. Further recommendations as per clinical course of the patient DVT prophylaxis: Subcutaneous Lovenox 80 mg twice daily home dose GI Prophylaxis: Pepcid PT/OT: Pending Prognosis is guarded
[2023-12-14] MEDS: MIDAZOLAM 1 MG/ML 5 ML VIAL IV STA ×2 (11:30→12:18)
[2023-12-14] MEDS ORDERED: VANCOMYCIN IV PER PHARMACY 1 EACH MISC MISCELLANE PRN (11:59)
[2023-12-14] MEDS ORDERED: methylPREDNISolone SOD SUCCI 40 MG/ML 1 ML VIAL IV SCH (12:00)
[2023-12-14] MEDS: NOREPINEPHRINE 4 MG in SODIUM CHLORIDE 0.9% 250 ML IV SCH (12:18)
[2023-12-14] MEDS: SODIUM CHLORIDE 0.9% 1,000 ML IV ONE ×2 (12:19→21:32)
[2023-12-14] MEDS: PIPERACILLIN-TAZOBACTAM 3.375 GM in SODIUM CHLORIDE 0.9% 100 ML IVPB SCH (12:24)
--- NOTE | 2023-12-14 12:34 | XR ---
EXAMINATION TYPE: XR chest 1V portable DATE OF EXAM: 12/14/2023 COMPARISON: 12/14/2023 HISTORY: Intubation and NG tube insertion TECHNIQUE: Single frontal view of the chest is obtained. FINDINGS: There is an ET tube 5.3 cm above the avery. There is an NG tube within the stomach. There is a left jugular central catheter with the tip of which is in the SVC/RA junction. There is marked increased aeration in the right lung compared to the prior study consistent with a la rge reduction in the pleural effusion. There is mild elevation of the right hemidiaphragm. The pulmon zachary vasculature appears mildly congested There is interval development of a small left effusion and possibly small infiltrate or atelectasis. There is no pneumothorax. The heart size is normal. IMPRESSION: 1. Acute cardiopulmonary disease with marked improvement in the aeration of the right lung consistent with marked reduction in a large right pleural effusion. 2. Interval development of a small left lung base infiltrate and effusion. 3. Mild pulmonary vascular congestion within the right lung. 4. ET tube 5.3 cm above the avery. NG tube within stomach [facility], , 12/14/2023 12:31 PM
[2023-12-14] MEDS: SODIUM CHLORIDE 0.9% 1,000 ML IV SCH (13:00)
[2023-12-14 13:24] LABS: ABG Base Excess 10.1 mmol/L; ABG HCO3 35 mmol/L (21-25); ABG Oxygen Saturation 97.1 % (94-97); ABG PCO2 45 mmHg (35-45); ABG PO2 75 mmHg (83-108); ABG TCO2 36 mmol/L (19-24); Allen Test Performed? Yes
--- NOTE | 2023-12-14 13:29 | P.PN ---
Subjective Progress Note Date: 12/14/23 This is a 48-year-old male patient, brought into the hospital because of hypoxemia that was noted at home. The patient is not having any worsening shortness of breath. No reported aspiration. Occasional cough and congestion. No significant sputum production. The patient has a very extensive past medical history. He is known to have previous history of Crohn's disease that has been complicated by bowel perforation for which the patient required a bowel resection and currently has an ileostomy. 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 Note that his course was rather complicated following his previous bowel surgery. The patient had prolonged ventilator dependent respiratory failure requiring intubation mechanical ventilation and subsequent tracheostomy tube insertion. The patient also required hemodialysis for renal failure and renal replacement therapy. Ultimately, dialysis has been discontinued as the patient renal function improved and the tracheostomy tube was also eliminated. 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 His last evaluation here in our hospital was and February 2023 and at that time, the patient came into us with generalized weakness and fatigue and he was treated for sepsis/bacteremia and the treatment was successful. He continues to have a port in his left anterior chest area through which she receives TPN to supplement his oral intake. His current white cell count at 6.3 with a heme of 13 and a platelet count of 1 52. Sodium is 138 with a potassium level of 4.7, BUN 16 with a creatinine of 0.33. His UA is negative. Viral screen is also negative. The patient's slightly lethargic. He is arousable and awake. He is currently on 3 L of oxygen by nasal cannula with pulse ox 93%. His chest x-ray shows chronic elevation of the right hemidiaphragm without any acute cardiopulmonary process. The patient has been maintained on anticoagulation on outpatient basis and he is on Lovenox 80 mg subcu every 12 hours. On 12/14/2023, the patient is being seen for a follow-up in the emergency department. The patient was slightly hypoxic and was admitted to the hospital for further investigation. Overnight, the patient's condition became worse. The patient had a repeat chest x-ray earlier this morning and the patient was found to have complete collapse of the right lung with volume loss. There was complete widening out of the right lung. Following that, the patient became progressively hypoxic. The patient had a blood gas that showed a pH of 7.28 with a pCO2 of 78 and pO2 of 63 consistent with an acute on top of chronic respiratory acidosis with significant hypoxemia. Based on that, the patient was placed on a BiPAP at a pressure of 12 over 6 cm of water. Subsequently, the oxygenation improved and the patient got transferred to the ICU. Prior to next discussion with the patient. The patient was awake and alert and he seemed to be able to make his own medical decisions. I also contacted the family members and discussed with them the findings. The findings are consistent with mucous plugging and volume loss and a complete atelectasis of the right lung. The patient will obviously need to be supported with mechanical ventilator and subsequently have a bronchoscopy done regarding the right lung atelectasis. Patient was agreeable to that. I initially attempted to do the bronchoscope under conscious sedation. Give the patient a total of 4 mg of Versed. However, following that, I noted that the patient became progressively more hypoxic while being on high flow nasal oxygen and 100% nonrebreather facemask. Based on that, I intubated the patient. During the intubation process, I noted that it was difficult to push and the #8 orotracheal tube. 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 Nevertheless, I was able to pass the ET tube to the level of the tracheal stenosis. There was adequate ventilation at that point. I also inserted the bronchoscope and therapeutic airway suctioning was done with copious amount of thick purulent creamy respiratory secretions were identified in the right lower lobe and right mainstem bronchus. Total amount of volume aspirated from the right lung was in the order of 40 cc of purulent material. The patient was started on a combination of Zosyn and vancomycin. Currently is on propofol at 20 mcg/kg/min. Hemodynamically stable. Postprocedure chest x-ray done showed m arked improvement in aeration of the right lung with marked reduction in the right lung atelectasis. There was interval development of a small left-sided pulmonary infiltrates. ET tube was seen in the upper tracheal area. Unable to push in the ET tube any further due to underlying tracheal stenosis. Hemodynamically stable at this point in time. Family has been informed of the changes. The white cell count from this morning is at 10 with a hemoglobin 15 and a platelet count of 155. Sodium is at 138, potassium is 4.4, BUN 21 with a creatinine of 0.36. Currently intubated on the mechanical ventilator. Objective - Vital Signs Vital signs: Vital Signs Temp 98.2 F 12/13/23 02:29 Pulse 100 12/14/23 08:17 Resp 20 12/14/23 06:14 BP 127/64 12/14/23 06:14 Pulse Ox 95 12/14/23 06:14 FiO2 50 12/14/23 08:05 - Exam At this point in time, the patient is intubated on the mechanical ventilator, sedated on propofol. Orotracheal and gastric tube are both in place., Head exam was generally normal. There was no scleral icterus or corneal arcus. Mucous membranes were moist. Neck supple. Full range of motion. No adenopathy thyromegaly or neck vein distention. Scar of the previous tracheostomy over the anterior neck area. Cardiovascular examination reveals regular rhythm rate. S1-S2 normal. No S3 or S4. No discernible murmur noted. Lungs reveal bilateral coarse rhonchi throughout. Breath sounds equal bilaterally. No wheezes or crackles. Diminished breath on the lung bases more so on the right, and aeration and air entry of the right lung improved following intubation mechanical ventilation bronchoscopy. Abdomen distended, with a midline dressing from previous surgery. No bowel sounds noted. The abdomen was soft, non-tender, and without masses, organomegaly, or appreciable enlargement of the abdominal aorta. The patient has a midline abdominal incision which is dry clean and intact and it is well- healed. The patient has an ileostomy and the patient also has anterior abdominal wall fistula which is draining Extremities are intact. No cyanosis. Clubbing noted. The patient has a right [id number] amputation. Skin is without rash or lesion. Neurologic, the patient is sedated for now. He has significant muscle atrophy in all 4 extremities. - Labs CBC & Chem 7: 12/14/23 03:55 12/14/23 03:55 Labs: Abnormal Lab Results - Last 24 Hours (Table) 12/13/23 12/13/23 12/14/23 Range/Units 09:35 13:00 01:07 MCHC (31.0-37.0) g/dL RDW (11.5-15.5) % Neutrophils # (1.3-7.7) k/uL Lymphocytes # (1.0-4.8) k/uL ABG pH 7.28 L (7.35-7.45) ABG pCO2 78 H* (35-45) mmHg ABG pO2 63 L (83-108) mmHg ABG HCO3 37 H (21-25) mmol/L ABG Total CO2 40 H (19-24) mmol/L ABG O2 Saturation 90.4 L (94-97) % VBG pCO2 62 H (37-51) mmHg VBG HCO3 34 H (24-28) mmol/L Carbon Dioxide (22-30) mmol/L BUN (9-20) mg/dL Creatinine (0.66-1.25) mg/dL Glucose (74-99) mg/dL Calcium (8.4-10.2) mg/dL Urine pH 8.5 H (5.0-8.0) Urine Protein Trace H (Negative) Triple Phos Crystals Rare H (None) /hpf Amorphous Sediment Few H (None) /hpf Urine Bacteria Rare H (None) /hpf Urine Mucus Rare H (None) /hpf 12/14/23 12/14/23 12/14/23 Range/Units 03:55 03:55 03:55 MCHC 29.1 L (31.0-37.0) g/dL RDW 17.1 H (11.5-15.5) % Neutrophils # 9.1 H (1.3-7.7) k/uL Lymphocytes # 0.5 L (1.0-4.8) k/uL ABG pH (7.35-7.45) ABG pCO2 (35-45) mmHg ABG pO2 (83-108) mmHg ABG HCO3 (21-25) mmol/L ABG Total CO2 (19-24) mmol/L ABG O2 Saturation (94-97) % VBG pCO2 62 H (37-51) mmHg VBG HCO3 36 H (24-28) mmol/L Carbon Dioxide 34 H (22-30) mmol/L BUN 21 H (9-20) mg/dL Creatinine 0.36 L (0.66-1.25) mg/dL Glucose 236 H (74-99) mg/dL Calcium 8.2 L (8.4-10.2) mg/dL Urine pH (5.0-8.0) Urine Protein (Negative) Triple Phos Crystals (None) /hpf Amorphous Sediment (None) /hpf Urine Bacteria (None) /hpf Urine Mucus (None) /hpf Assessment and Plan Plan: Acute hypoxic respiratory failure, with complete atelectasis and whitening out of the right lung due to extensive amount of mucous plugs involving the right lung causing complete atelectasis of the right lung. The patient is post intubation mechanical ventilation post bronchoscopy and therapeutic airway suctioning and removal Of copious amount of purulent respiratory secretions from the right lung. Rule out underlying pneumonia. Right lung pneumonia with copious respiratory secretions, purulence causing mucous plugs and complete right lung atelectasis. Acute hypoxic and hypercapnic respiratory failure on top of chronic hypercapnic respiratory failure, currently intubated on mechanical ventilator. Tracheal stenosis noted at the time of the intubation and bronchoscopy. The upper trachea is narrowed at the site of a previous tracheostomy tube insertion. Unable to pass the orotracheal tube through this stenotic area and the patient currently has a #8 orotracheal tube sitting just above the tracheal stenosis. Adequate ventilation. As such, it is estimated that the tracheal stenosis causing narrowing of the tracheal lumen down to 8 mm in size Chronic elevation of the right hemidiaphragm History of Crohn's disease complicated by bowel perforation and the patient underwent a colectomy with diverting ileostomy. 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 Patient is also on TPN for nutritional support in addition to oral intake. Previous history of sepsis and the patient had a gram-negative Serratia marcescens septicemia back in 02/13/2023 History of CVA/TIA. Residual left-sided weakness History of DVT. Maintained on Lovenox injections 80 mg subcu every 12 hours. History of right below the knee amputation, this is probably due to a acute vascular insult to his right lower extremity complicated by development of a foot gangrene Chronic right upper extremity DVT. Prior history of tobacco use. History of cardiac asystole/arrest on 2021 which showed CPR and epinephrine with return of spontaneous circulation TPN for nutritional support Obesity Previous history of tracheostomy with subsequent reversal. 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 Use pressors if needed Wound care and ileostomy care Resume home medications Will follow Condition is critical and this evaluation was done more than 30 minutes e xcluding time to do any procedures. Case was discussed with the patient prior to the intubation and the family and the mother. Time with Patient: Greater than 30
--- NOTE | 2023-12-14 13:34 | P.PCN ---
Date of Procedure: 12/14/23 Preoperative Diagnosis: Right lung complete atelectasis Postoperative Diagnosis: Copious mucous plugs and pneumonia involving the right lung with secondary atelectasis Tracheal stenosis Procedure(s) Performed: Intubation Flexible bronchoscopy, therapeutic airway suctioning and removal of mucous plugs from the right lung Anesthesia: MAC Surgeon: Estela Holt Estimated Blood Loss (ml): 0 Pathology: other Condition: critical Disposition: ICU Operative Findings: Indication: Respiratory compromise. A time-out was completed verifying correct patient, procedure, site, positioning, and implant(s) or special equipment if applicable. The patient was positioned appropriately and a #8 endotracheal tube was placed under direct laryngoscopy. The tube was anchored at 22 cm at the teeth. Noted as I was inserting the orotracheal tube, there was some resistance being met in terms of putting the tube further in the trachea. At a later stage, it was noted that the patient has a area of tracheal stenosis at the site of the previous tracheostomy tube insertion a upper tracheal segment. Correct placement was confirmed by presence of bilateral breath sounds without air sounds in the abdomen on auscultation. An end-tidal CO2 monitor was also used to confirm tracheal placement of the ET tube. Effective bronchoscopy there was not a later stage confirmed that the patient's type of the orotracheal tube was sitting just above the area of tracheal stenosis and estimated tracheal lumen is noted of 8 mm in size. No evidence of any leak around the tube. A chest x-ray was ordered to assess for pneumothorax and verify endotracheal tube placement. The patient tolerated the procedure well and there were no complications. Flexible bronchoscopy Indication is right lung collapse Following intubation, the flexible bronchoscope was introduced through the orotracheal tube and was advanced into the lower trachea. In fact, the entire ET tube was inspected. The tip of the ET tube was just above the stenotic segment of the trachea and there was evidence of a tracheal stenosis and estimated lumen caliber was in the order of 8 mm in size. I was able to pass the flexible bronchoscope passed through tracheal stenosis related to history bronchoscope into the lower trachea. Copious amount of secretions have defied in the distal trachea and bilateral mainstem bronchi more so on the right and the right mainstem bronchus and the various segments of the right lower lobe and the right upper lobe and right middle lobe were essentially plugged with purulent creamy respiratory secretions. Therapeutic airway suctioning was done. Airway patency was achieved. A bronchial lavage of the right lower lobe was done. A total of 20 cc of purulent aspirate was obtained. At the completion of the procedure, the patient's airways inspected included the bilateral mainstem bronchi, right upper lobe bronchus, bronchus intermedius, right middle lobe bronchus and right lower lobe bronchus and the very stent segments on the right and examination of the left side including the left upper lobe bronchus and the left lower lobe bronchus and the various 8 segments of the left. Oxygenation improved considerably and there was adequate aeration of the right lung following the procedure. Subsequent chest x-ray showed excellent aeration of the right lung. Repeat bronchoscopy may be needed also over the next 24 hours. The procedures were successful. The patient is currently on Zosyn and vancomycin and the cultures will be sent.
[2023-12-14] MEDS: VANCOMYCIN 1,500 MG in SODIUM CHLORIDE 0.9% 500 ML 500 ML IVPB ONE (14:43)
[2023-12-14] MEDS: CHLORHEXIDINE GLUCONATE 15 ML CUP MUCOUS MEM SCH (20:14)
[2023-12-14] MEDS: methylPREDNISolone SOD SUCCI 40 MG/ML 1 ML VIAL IV SCH (20:14)
[2023-12-15] MEDS: VANCOMYCIN 1,500 MG in SODIUM CHLORIDE 0.9% 500 ML 500 ML IVPB SCH (00:34)
[2023-12-15 04:49] LABS: Anisocytosis Slight; Basophils % (A) 0 %; Eosinophils % (A) 0 %; HCT 41.8 % (39.0-53.0); HGB 12.4 gm/dL (13.0-17.5); Hypochromasia Marked; Lymphocytes # (A) 1.6 k/uL (1.0-4.8); Lymphocytes % (A) 12 %; MCH 26.9 pg (25.0-35.0); MCHC 29.6 g/dL (31.0-37.0); MCV 90.9 fL (80.0-100.0); Mean Platelet Volume 9.9; Monocytes # (A) 0.5 k/uL (0-1.0); Monocytes % (A) 4 %; Neutrophils # (A) 11.1 k/uL (1.3-7.7); Neutrophils % (A) 83 %; Platelet Count 196 k/uL (150-450); RDW 17.4 % (11.5-15.5); WBC 13.4 k/uL (3.8-10.6)
[2023-12-15 04:59] LABS: ALT 20 U/L (4-49); AST 34 U/L (17-59); African American GFR (CKD) >90 (>60 ml/min/1.73 sqM); Albumin 2.7 g/dL (3.5-5.0); Alkaline Phosphatase 90 U/L (38-126); Anion Gap 3 mmol/L; Blood Urea Nitrogen 18 mg/dL (9-20); Carbon Dioxide 25 mmol/L (22-30); Chloride 108 mmol/L (98-107); Glucose 125 mg/dL (74-99); Magnesium 1.8 mg/dL (1.6-2.3); Non-African American GFR(CKD) >90 (>60 ml/min/1.73 sqM); Sodium 136 mmol/L (137-145); Total Bilirubin 1.4 mg/dL (0.2-1.3); Total Protein 6.2 g/dL (6.3-8.2)
[2023-12-15 05:18] LABS: Potassium 4.5 mmol/L (3.5-5.1)
--- NOTE | 2023-12-15 06:26 | XR ---
EXAMINATION TYPE: XR chest 1V portable DATE OF EXAM: 12/15/2023 COMPARISON: 12/14/2023 HISTORY: Tube placement TECHNIQUE: Single frontal view of the chest is obtained. FINDINGS: The ET tube is 6.3 cm above the avery. There is an NG tube within the stomach. There is decreasing fluid on the right but small pleural effusion persists. No change in the left ret rocardiac opacity likely a combination of small pleural effusion and atelectasis. There is no change in the central venous catheter tip in the SVC/RA junction. There is no pneumothorax. The osseous structures are intact IMPRESSION: 1. ET tube 6.3 cm above the avery. NG tube is in the stomach. 2. Small bilateral pleural effusions with probable mild decrease in right pleural effusion. [facility], Workstation: [id number] 12/15/2023 6:23 AM
[2023-12-15] MEDS ORDERED: Magnesium Replacement Protocol 1 EACH MISC MISCELLANE PRN (07:58)
[2023-12-15] MEDS: MAGNESIUM SULFATE-D5W PMX 1 GM in DEXTROSE/WATER 1 100ML.BAG IVPB ONE (08:32)
[2023-12-15] MEDS: PANTOPRAZOLE 40 MG/10 ML VIAL IVP SCH (08:45)
[2023-12-15] MEDS: MIDAZOLAM 1 MG/ML 5 ML VIAL IV STA (09:20)
--- NOTE | 2023-12-15 10:08 | P.PN ---
Subjective This is a pleasant 48 years old male with past medical history of Crohn disease complicated with bowel perforation requiring ileostomy, also has 2 fistula in his anterior abdominal Wall, patient also has left upper chest portal to receive TPN, patient also able to take oral feeding. 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 He has history of respiratory failure requiring tracheostomy insertion with subsequent removal Patient lives at home with his 2 sons. Information were obtained with the help of his mother at bedside. Patient presents to the hospital at this time because of respiratory difficulty, he came to emergency room yesterday for the same reason and he was discharged home, he was noticed to have hypoxia with coughing but that is improved yesterday. At home he have recurrence of his symptoms so he decided to come to emergency room today. Patient somewhat drowsy and could not participate in history however has per mother he is drowsy because of lack of sleep and he is usually more awake. Patient denies chest pain, no abdominal pain, he has ileostomy bag in place with some loose stool, as per mother at bedside this is his normal consistency. He has external urinary catheter. Denies dysuria or urgency. Both legs looks weak, has right BKA, no swelling or cellulitis. Patient is afebrile, he was hypoxic 88% on room air. Slightly tachypneic around 20. He has unremarkable CBC, BMP, liver enzymes, troponin x 1 less than 0.012. proBNP is 21. Influenza A and type B, RSV, SARS (coronavirus) are undetected D-dimer is negative at 0.45 EKG showing sinus rhythm at [address]-T changes Chest x-ray showing low volume but no acute process per radiologist Venous pH is low normal at 7.3, bicarb is elevated 34 and pCO2 is elevated at 62. Patient received prednisone 40 mg and Zithromax prior to hospitalization. 12/13 Patient developed complete collapse of the right lung, which is apparent on the chest x-ray this morning and he is developing more hypoxia he was saturation 77 and 5 L, currently he is kept on BiPAP He has no fever Blood pressure stable 127/64 Patient started on Zosyn also he is on IV Solu-Medrol 40 mg twice daily He is on a Protonix and therapeutic dose of Lovenox Pro- Calcitonin is low at 0.16 pH is low with high pCO2. Patient is going to be transferred to the ICU 12/14 Patient currently remains in the ICU intubated and sedated, also he required a small dose of Levophed for blood pressure support He status post bronchoscopy second 1 today, about 100 milliliter of mucus secret ions pulled out. He has evidence of tracheomalacia as well but patent trachea. Bronchoscopy procedure reviewed with pulmonary team He is currently covered with IV vancomycin and Zosyn Cultures are still pending Chest x-ray showing endotracheal tube in position, right lower lobe infiltrate for pneumonia He is also on therapeutic dose of Lovenox continued from home Review of systems: na Active Medications Generic Name Dose Route Start Last Admin Trade Name Freq PRN Reason Stop Dose Admin Acetaminophen 325 mg 12/13/23 15:43 12/15/23 00:32 Acetaminophen Tab 325 Mg Tab PO 325 mg Q6HR PRN Administration Fever and/ or Pain Albuterol Sulfate 2.5 mg 12/13/23 09:44 12/15/23 08:00 Albuterol Nebulized 2.5 Mg/3 Ml INHALATION 2.5 mg RT-QID PRN Administration Cough Chlorhexidine Gluconate 15 ml 12/14/23 21:00 12/15/23 08:33 Chlorhexidine Gluconate 15 Ml Cup MUCOUS MEM 15 ml BID ANNIE Administration Enoxaparin Sodium 80 mg 12/13/23 21:00 12/15/23 08:33 Enoxaparin 80 Mg/0.8 Ml Syringe SQ 80 mg BID@0900,2100 ANNIE Administration Ergocalciferol 1,250 mcg 12/16/23 09:00 Ergocalciferol 1,250 Mcg (50,000 Iu) Capsule PO MOTH ANNIE Ferrous Sulfate 325 mg 12/14/23 09:00 12/15/23 08:44 Ferrous Sulfate 325 Mg Tab PO Not Given DAILY@0900 ANNIE Guaifenesin/Dextromethorphan 10 ml 12/13/23 14:00 12/15/23 06:43 Guaifenesin-Dm 100-10mg/5ml 10 Ml Cup PO 12/16/23 13:59 10 ml Q6HR ANNIE Administration Hydromorphone HCl 1 mg 12/15/23 09:35 Hydromorphone 1 Mg/Ml 1 Ml Syringe IVP Q3HR PRN Pain Piperacillin Sod/Tazobactam 100 mls @ 25 mls/hr 12/14/23 09:45 12/15/23 08:32 Sod 3.375 gm/ Sodium Chloride IVPB 25 mls/hr Q8HR ANNIE Administration Protocol Norepinephrine Bitartrate 4 mg 254 mls @ 10.369 mls/hr 12/14/23 12:30 12/15/23 07:15 / Sodium Chloride IV 0.04 mcg/kg/min .Q24H ANNIE 13.825 mls/hr Titration Protocol 0.03 MCG/KG/MIN Sodium Chloride 1,000 mls @ 75 mls/hr 12/14/23 12:15 12/15/23 01:30 Saline 0.9% IV 75 mls/hr .[id number] ANNIE Administration Propofol 1,000 mg/ IV Solution 100 mls @ 8.165 mls/hr 12/14/23 12:30 12/15/23 04:57 IV 50 mcg/kg/min .[id number] ANNIE 27.215 mls/hr Administration Protocol 15 MCG/KG/MIN Vancomycin HCl 1,500 mg/ 500 mls @ 167 mls/hr 12/15/23 00:00 12/15/23 00:34 Sodium Chloride IVPB 167 mls/hr Q12H ANNIE Administration Metoprolol Tartrate 12.5 mg 12/13/23 21:00 12/15/23 08:33 Metoprolol Tartrate 12.5 Mg Tab PO 12.5 mg BID@0900,2100 ANNIE Administration Miscellaneous Information 0 each 12/16/23 11:00 Vancomycin Trough Due 1 Each Misc MISCELLANE 12/16/23 11:01 DIRECTED ONE Miscellaneous Information 1 each 12/15/23 07:58 Magnesium Replacement Protocol 1 Each Misc MISCELLANE DAILY PRN Per Protocol Protocol Naloxone HCl 0.2 mg 12/13/23 08:06 Naloxone 0.4 Mg/Ml 1 Ml Vial IV Q2M PRN Opioid Reversal Pantoprazole Sodium 40 mg 12/15/23 09:00 12/15/23 08:45 Pantoprazole 40 Mg/10 Ml Vial IVP 40 mg DAILY ANNIE Administration Trazodone HCl 50 mg 12/13/23 09:44 Trazodone Hcl 50 Mg Tab PO HS PRN sleep Objective - Vital Signs Vital signs: Vital Signs Temp 98.1 F 12/15/23 08:00 Pulse 82 12/15/23 09:00 Resp 25 H 12/15/23 09:00 BP 108/64 12/15/23 09:00 Pulse Ox 89 L 12/15/23 09:00 FiO2 60 12/15/23 08:00 Intake & Output 12/14/23 12/15/23 12/15/23 18:59 06:59 18:59 Intake Total 2331.864 2953.392 230.185 Output Total 195 1895 125 Balance 2136.864 1058.392 105.185 Weight 90.718 kg 94.3 kg Intake: IV 2050 2525 225 Piperacillin-Tazobactam 3 100 200 .375 gm In Sodium Chloride 0.9% 100 ml @ 25 mls/hr IVPB Q8HR ANNIE Rx# :[id number] Sodium Chloride 0.9% 1, 450 825 225 000 ml @ 75 mls/hr IV . [id number] ANNIE Rx#:[id number] Sodium Chloride 0.9% 1, 1000 1000 000 ml @ 999 mls/hr IV . Q1H1M ONE Rx#:[id number] Vancomycin 1,500 mg In 500 500 Sodium Chloride 0.9% 500 ml 500 ml @ 167 mls/hr IVPB ONCE ONE Rx#: [id number] Intake, IV Titration 276.864 428.392 5.185 Amount Norepinephrine 4 mg In 107.782 161.927 5.185 Sodium Chloride 0.9% 250 ml @ 0.03 MCG/KG/MIN 10. 369 mls/hr IV .Q24H ANNIE Rx#:[id number] propofoL 1,000 mg In 169.082 266.465 Empty Bag 1 bag @ 15 MCG/ KG/MIN 8.165 mls/hr IV . [id number] [facility] Rx#:[id number] Tube Feeding 5 Output: Urine 195 445 125 Stool 1450 Other: Voiding Method External Catheter Indwelling Catheter Indwelling Catheter - Exam GENERAL: The patient is alert and oriented x3, not in any acute distress. Well developed, well nourished. HEENT: Pupils are round and equally reacting to light. EOMI. No scleral icterus. No conjunctival pallor. Normocephalic, atraumatic. No pharyngeal erythema. No thyromegaly. CARDIOVASCULAR: S1 and S2 present. No murmurs, rubs, or gallops. PULMONARY: Decreased breath sounds on the right side, no wheezing , no crackles. ABDOMEN: Soft, nontender, nondistended, normoactive bowel sounds. No palpable organomegaly. MUSCULOSKELETAL: No joint swelling or deformity. EXTREMITIES: No cyanosis, clubbing, or pedal edema. NEUROLOGICAL: Gross neurological examination did not reveal any focal deficits. SKIN: No rashes. no petechiae. - Labs CBC & Chem 7: 12/15/23 03:59 12/15/23 03:59 Labs: Abnormal Lab Results - Last 24 Hours (Table) 12/14/23 12/15/23 12/15/23 Range/Units 13:23 03:59 03:59 WBC 13.4 H (3.8-10.6) k/uL Hgb 12.4 L (13.0-17.5) gm/dL MCHC 29.6 L (31.0-37.0) g/dL RDW 17.4 H (11.5-15.5) % Neutrophils # 11.1 H (1.3-7.7) k/uL ABG pH 7.50 H (7.35-7.45) ABG pO2 75 L (83-108) mmHg ABG HCO3 35 H (21-25) mmol/L ABG Total CO2 36 H (19-24) mmol/L ABG O2 Saturation 97.1 H (94-97) % Sodium 136 L (137-145) mmol/L Chloride 108 H (98-107) mmol/L Creatinine 0.35 L (0.66-1.25) mg/dL Glucose 125 H (74-99) mg/dL Calcium 8.0 L (8.4-10.2) mg/dL Total Bilirubin 1.4 H (0.2-1.3) mg/dL Total Protein 6.2 L (6.3-8.2) g/dL Albumin 2.7 L (3.5-5.0) g/dL Microbiology - Last 24 Hours (Table) 12/13/23 20:40 Gram Stain - Preliminary Sputum Assessment and Plan Assessment: Right lower lobe pneumonia, complicated by right lung collapse secondary to mucous plug status post bronchoscopy on 12/13 and 12/14 Septic shock secondary to above Acute hypoxic hypercapnic respiratory failure Acute respiratory acidosis with compensated metabolic alkalosis Possible obesity hypoventilation syndrome, possible elements of acute COPD cannot be ruled out Metabolic encephalopathy history of Crohn disease complicated with bowel perforation requiring ileostomy, also has 2 fistula in his anterior abdominal Wall, patient also has left upper chest portal to receive TPN, patient also able to take oral feeding He has history of respiratory failure requiring tracheostomy insertion with subsequent removal 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 Continue same treatment. Continue with s ymptomatic treatment. Resume home medication. Monitor labs and vitals. DVT and GI prophylaxis. Further recommendations as per clinical course of the patient DVT prophylaxis: Subcutaneous Lovenox 80 mg twice daily home dose GI Prophylaxis: Pepcid PT/OT: Pending Prognosis is guarded
--- NOTE | 2023-12-15 12:54 | P.PN ---
Subjective Progress Note Date: 12/15/23 This is a 48-year-old male patient, brought into the hospital because of hypoxemia that was noted at home. The patient is not having any worsening shortness of breath. No reported aspiration. Occasional cough and congestion. No significant sputum production. The patient has a very extensive past medical history. He is known to have previous history of Crohn's disease that has been complicated by bowel perforation for which the patient required a bowel resection and currently has an ileostomy. 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 Note that his course was rather complicated following his previous bowel surgery. The patient had prolonged ventilator dependent respiratory failure requiring intubation mechanical ventilation and subsequent tracheostomy tube insertion. The patient also required hemodialysis for renal failure and renal replacement therapy. Ultimately, dialysis has been discontinued as the patient renal function improved and the tracheostomy tube was also eliminated. 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 His last evaluation here in our hospital was and February 2023 and at that time, the patient came into us with generalized weakness and fatigue and he was treated for sepsis/bacteremia and the treatment was successful. He continues to have a port in his left anterior chest area through which she receives TPN to supplement his oral intake. His current white cell count at 6.3 with a heme of 13 and a platelet count of 1 52. Sodium is 138 with a potassium level of 4.7, BUN 16 with a creatinine of 0.33. His UA is negative. Viral screen is also negative. The patient's slightly lethargic. He is arousable and awake. He is currently on 3 L of oxygen by nasal cannula with pulse ox 93%. His chest x-ray shows chronic elevation of the right hemidiaphragm without any acute cardiopulmonary process. The patient has been maintained on anticoagulation on outpatient basis and he is on Lovenox 80 mg subcu every 12 hours. On 12/14/2023, the patient is being seen for a follow-up in the emergency department. The patient was slightly hypoxic and was admitted to the hospital for further investigation. Overnight, the patient's condition became worse. The patient had a repeat chest x-ray earlier this morning and the patient was found to have complete collapse of the right lung with volume loss. There was complete widening out of the right lung. Following that, the patient became progressively hypoxic. The patient had a blood gas that showed a pH of 7.28 with a pCO2 of 78 and pO2 of 63 consistent with an acute on top of chronic respiratory acidosis with significant hypoxemia. Based on that, the patient was placed on a BiPAP at a pressure of 12 over 6 cm of water. Subsequently, the oxygenation improved and the patient got transferred to the ICU. Prior to next discussion with the patient. The patient was awake and alert and he seemed to be able to make his own medical decisions. I also contacted the family members and discussed with them the findings. The findings are consistent with mucous plugging and volume loss and a complete atelectasis of the right lung. The patient will obviously need to be supported with mechanical ventilator and subsequently have a bronchoscopy done regarding the right lung atelectasis. Patient was agreeable to that. I initially attempted to do the bronchoscope under conscious sedation. Give the patient a total of 4 mg of Versed. However, following that, I noted that the patient became progressively more hypoxic while being on high flow nasal oxygen and 100% nonrebreather facemask. Based on that, I intubated the patient. During the intubation process, I noted that it was difficult to push and the #8 orotracheal tube. 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 Nevertheless, I was able to pass the ET tube to the level of the tracheal stenosis. There was adequate ventilation at that point. I also inserted the bronchoscope and therapeutic airway suctioning was done with copious amount of thick purulent creamy respiratory secretions were identified in the right lower lobe and right mainstem bronchus. Total amount of volume aspirated from the right lung was in the order of 40 cc of purulent material. The patient was started on a combination of Zosyn and vancomycin. Currently is on propofol at 20 mcg/kg/min. Hemodynamically stable. Postprocedure chest x-ray done showed m arked improvement in aeration of the right lung with marked reduction in the right lung atelectasis. There was interval development of a small left-sided pulmonary infiltrates. ET tube was seen in the upper tracheal area. Unable to push in the ET tube any further due to underlying tracheal stenosis. Hemodynamically stable at this point in time. Family has been informed of the changes. The white cell count from this morning is at 10 with a hemoglobin 15 and a platelet count of 155. Sodium is at 138, potassium is 4.4, BUN 21 with a creatinine of 0.36. Currently intubated on the mechanical ventilator. 12/15/2023, patient is being seen for a follow-up. The patient is arousable while being on propofol which is running at 50 mcg/kg/min. He is able to communicate even while being on sedation. As mentioned, he was intubated and placed on mechanical ventilator and copious amounts of mucous plugs was aspirated from the right lung yesterday. This was done following the bronchoscopy. Cultures are still pending for now although there is a preliminary sputum culture that showed haemophilus influenza. The patient is currently on a combination Zosyn and vancomycin. Meanwhile, the patient remains on mechanical ventilator assist-control mode with rate of 24, tidal volume of 400, FiO2 of 60% with a PEEP of 5. Chest x-ray still showing atelectatic changes right lung base. There is improved aeration of the right lung in general. The blood gas showed a pH of 7.5 with a pCO2 of 45 and a pO2 of 75. The blood work shows a white cell count of 13.4 with a hemoglobin of 12.4 and platelet count of 196. Sodium is 136, potassium is at 4.5, BUN is 18 with a creatinine of 0.35. The patient is also on IV fluids with normal saline at rate of 75 cc an hour. He is on norepinephrine at 0.04 mcg/kg/min. No other significant events overnight. Output from the abdominal fistulas and ileostomy has been noted. Objective - Vital Signs Vital signs: Vital Signs Temp 98.1 F 12/15/23 08:00 Pulse 72 12/15/23 12:45 Resp 24 12/15/23 12:45 BP 92/51 12/15/23 12:45 Pulse Ox 99 12/15/23 12:45 FiO2 60 12/15/23 12:00 Intake & Output 12/14/23 12/15/23 12/15/23 18:59 06:59 18:59 Intake Total 2331.864 2953.392 492.029 Output Total 195 1895 200 Balance 2136.864 1058.392 292.029 Weight 90.718 kg 94.3 kg Intake: IV 2050 2525 375 Piperacillin-Tazobactam 3 100 200 .375 gm In Sodium Chloride 0.9% 100 ml @ 25 mls/hr IVPB Q8HR ANNIE Rx# :[id number] Sodium Chloride 0.9% 1, 450 825 375 000 ml @ 75 mls/hr IV . [id number] ANNIE Rx#:[id number] Sodium Chloride 0.9% 1, 1000 1000 000 ml @ 999 mls/hr IV . Q1H1M ONE Rx#:[id number] Vancomycin 1,500 mg In 500 500 Sodium Chloride 0.9% 500 ml 500 ml @ 167 mls/hr IVPB ONCE ONE Rx#: [id number] Intake, IV Titration 276.864 428.392 57.029 Amount Norepinephrine 4 mg In 107.782 161.927 57.029 Sodium Chloride 0.9% 250 ml @ 0.03 MCG/KG/MIN 10. 369 mls/hr IV .Q24H [facility] Rx#:[id number] propofoL 1,000 mg In 169.082 266.465 Empty Bag 1 bag @ 15 MCG/ KG/MIN 8.165 mls/hr IV . [id number] [facility] Rx#:[id number] Oral 60 Tube Feeding 5 Output: Urine 195 445 200 Stool 1450 Other: Voiding Method External Catheter Indwelling Catheter Indwelling Catheter - Exam At this point in time, the patient is intubated on the mechanical ventilator, sedated on propofol. Orotracheal and gastric tube are both in place., Head exam was generally normal. There was no scleral icterus or corneal arcus. Mucous membranes were moist. Neck supple. Full range of motion. No adenopathy thyromegaly or neck vein d istention. Scar of the previous tracheostomy over the anterior neck area. Cardiovascular examination reveals regular rhythm rate. S1-S2 normal. No S3 or S4. No discernible murmur noted. Lungs reveal bilateral coarse rhonchi throughout. Breath sounds equal bilaterally. No wheezes or crackles. Diminished breath on the lung bases more so on the right, and aeration and air entry of the right lung improved following intubation mechanical ventilation bronchoscopy. Abdomen distended, with a midline dressing from previous surgery. No bowel sounds noted. The abdomen was soft, non-tender, and without masses, organomegaly, or appreciable enlargement of the abdominal aorta. The patient has a midline abdominal incision which is dry clean and intact and it is well- healed. The patient has an ileostomy and the patient also has anterior abdominal wall fistula which is draining Extremities are intact. No cyanosis. Clubbing noted. The patient has a right [id number] amputation. Skin is without rash or lesion. Neurologic, the patient is sedated for now. He has significant muscle atrophy in all 4 extremities. - Labs CBC & Chem 7: 12/15/23 03:59 12/15/23 03:59 Labs: Abnormal Lab Results - Last 24 Hours (Table) 12/14/23 12/15/23 12/15/23 Range/Units 13:23 03:59 03:59 WBC 13.4 H (3.8-10.6) k/uL Hgb 12.4 L (13.0-17.5) gm/dL MCHC 29.6 L (31.0-37.0) g/dL RDW 17.4 H (11.5-15.5) % Neutrophils # 11.1 H (1.3-7.7) k/uL ABG pH 7.50 H (7.35-7.45) ABG pO2 75 L (83-108) mmHg ABG HCO3 35 H (21-25) mmol/L ABG Total CO2 36 H (19-24) mmol/L ABG O2 Saturation 97.1 H (94-97) % Sodium 136 L (137-145) mmol/L Chloride 108 H (98-107) mmol/L Creatinine 0.35 L (0.66-1.25) mg/dL Glucose 125 H (74-99) mg/dL Calcium 8.0 L (8.4-10.2) mg/dL Total Bilirubin 1.4 H (0.2-1.3) mg/dL Total Protein 6.2 L (6.3-8.2) g/dL Albumin 2.7 L (3.5-5.0) g/dL Microbiology - Last 24 Hours (Table) 12/13/23 20:40 Gram Stain - Preliminary Sputum Sputum Culture - Preliminary Haemophilus influenzae 09/28/24 11:45 Gram Stain - Preliminary Sputum Sputum Culture - Preliminary Assessment and Plan Plan: Acute hypoxic respiratory failure, with complete atelectasis and whitening out of the right lung due to extensive amount of mucous plugs involving the right lung causing complete atelectasis of the right lung. The patient is post intubation mechanical ventilation post bronchoscopy and therapeutic airway suctioning and removal Of copious amount of purulent respiratory secretions from the right lung. Rule out underlying pneumonia. The preliminary cultures are showing haemophilus influenza. The results of the bronchial lavage are still pending. The patient is currently on a combination of Zosyn and vancomycin. Another bronchoscopy to be done today as the patient continues to have some volume loss and atelectatic changes right lung base on today's chest x-ray. Oxygenation general is improved. Blood gas was noted. Right lung pneumonia with copious respiratory secretions, purulence causing mucous plugs and complete right lung atelectasis. Sputum cultures positive for haemophilus influenza. Acute hypoxic and hypercapnic respiratory failure on top of chronic hypercapnic respiratory failure, currently intubated on mechanical ventilator. Tracheal stenosis noted at the time of the intubation and bronchoscopy. The upper trachea is narrowed at the site of a previous tracheostomy tube insertion. Unable to pass the orotracheal tube through this stenotic area and the patient currently has a #8 orotracheal tube sitting just above the tracheal stenosis. Adequate ventilation. As such, it is estimated that the tracheal stenosis causing narrowing of the tracheal lumen down to 8 mm in size Chronic elevation of the right hemidiaphragm History of Crohn's disease complicated by bowel perforation and the patient underwent a colectomy with diverting ileostomy. 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 Patient is also on TPN for nutritional support in addition to oral intake. Previous history of sepsis and the patient had a gram-negative Serratia marcescens septicemia back in 02/13/2023 History of CVA/TIA. Residual left-sided weakness History of DVT. Maintained on Lovenox injections 80 mg subcu every 12 hours. History of right below the knee amputation, this is probably due to a acute vascular insult to his right lower extremity complicated by development of a foot gangrene Chronic right upper extremity DVT. Prior history of tobacco use. History of cardiac asystole/arrest on 2021 which showed CPR and epinephrine with return of spontaneous circulation TPN for nutritional support Obesity Previous history of tracheostomy with subsequent reversal. 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 Start the patient on a combination of Zosyn and vancomycin IV fluids rate of 75 cc an hour of normal salinee Continue anticoagulation with Lovenox 80 mg SQ every 12 hours. Continue norepinephrine at the lower dose to support the patient's blood pressure Wound care and ileostomy care Resume home medications Will initiate enteral feeding for nutritional support and monitor the output from the abdominal fistulas and the ileostomy Will follow Condition is critical and this evaluation was done more than 30 minutes excluding time to do any procedures. Time with Patient: Greater than 30
--- NOTE | 2023-12-15 12:58 | P.PCN ---
Date of Procedure: 12/15/23 Operative Findings: Preoperative Diagnosis: Right lung atelectasis Postoperative Diagnosis: Copious mucous plugs and pneumonia involving the right lung with secondary atelectasis Tracheal stenosis Procedure(s) Performed: Flexible bronchoscopy, therapeutic airway suctioning and removal of mucous plugs from the right lung Anesthesia: MAC Surgeon: Estela Holt Estimated Blood Loss (ml): 0 Pathology: other Condition: critical Disposition: ICU Operative Findings: Indication is right lung atelectasis The patient was already intubated on the mechanical ventilator. The disposable bronchoscope was introduced through an adapter and it was advanced through the orotracheal tube. The tip of the ET tube was just above the stenotic segment of the trachea and there was evidence of a tracheal stenosis and estimated lumen caliber was in the order of 8 mm in size. I was able to pass the flexible bronchoscope passed through tracheal stenosis related to history bronchoscope into the lower trachea. The respiratory secretions were less compared to yesterday. There was some secretions pooled at the level of the orotracheal tube above the stenotic segment of the trachea. Those were suctioned out. Following that, I was able to push the bronchoscope into the lower trachea and identified the main avery. More secretions identified in the right lower lobe and right upper lobe and right middle lobe and therapeutic airway suctioning was done. Multiple mucous plugs were aspirated without any major difficulties. At the completion of the procedure, the patient's airways inspected included the bilateral mainstem bronchi, right upper lobe bronchus, bronchus intermedius, right middle lobe bronchus and right lower lobe bronchus and the very stent segments on the right and examination of the left side including the left upper lobe bronchus and the left lower lobe bronchus and the various 8 segments of the left. Oxygenation improved considerably and there was adequate aeration of the right lung following the procedure. The patient is currently on Zosyn and vancomycin and the cultures will be sent.
[2023-12-15] MEDS: HYDROmorphone 1 MG/ML 1 ML SYRINGE IVP PRN (13:12)
--- NOTE | 2023-12-16 00:41 | P.PCN ---
Date of Procedure: 12/16/23 Preoperative Diagnosis: Pneumonia, sepsis, septic shock Postoperative Diagnosis: Pneumonia, sepsis, septic shock Procedure(s) Performed: Insertion of a left brachial arterial line Indications for Procedure: Continuous blood pressure monitoring and frequent blood draws Description of Procedure: Informed consent was obtained, and a procedural timeout was performed . The patient was placed in supine position. The left brachial region was prepared in a sterile fashion, and a sterile drape was applied. The left brachial artery was palpated, easily cannulated, and a guidewire was placed. A Cook catheter was inserted over the guidewire, and the guidewire was removed. There was good arterial blood flow, good arterial waveform, and no complications. The line was secured with using a 3-0 silk suture.
[2023-12-16 04:56] LABS: Anisocytosis Slight; Basophils % (A) 0 %; Eosinophils # (A) 0.2 k/uL (0-0.7); Eosinophils % (A) 2 %; HCT 39.1 % (39.0-53.0); HGB 11.9 gm/dL (13.0-17.5); Hypochromasia Marked; Lymphocytes # (A) 1.7 k/uL (1.0-4.8); Lymphocytes % (A) 21 %; MCH 27.3 pg (25.0-35.0); MCHC 30.4 g/dL (31.0-37.0); MCV 89.7 fL (80.0-100.0); Mean Platelet Volume 10.6; Monocytes # (A) 0.4 k/uL (0-1.0); Monocytes % (A) 4 %; Neutrophils # (A) 5.7 k/uL (1.3-7.7); Neutrophils % (A) 71 %; Platelet Count 163 k/uL (150-450); Poikilocytosis Slight; RBC 4.36 m/uL (4.30-5.90)
[2023-12-16 05:14] LABS: African American GFR (CKD) >90 (>60 ml/min/1.73 sqM); Anion Gap 3 mmol/L; Blood Urea Nitrogen 9 mg/dL (9-20); Calcium 8.1 mg/dL (8.4-10.2); Carbon Dioxide 24 mmol/L (22-30); Chloride 111 mmol/L (98-107); Glucose 86 mg/dL (74-99); Magnesium 1.7 mg/dL (1.6-2.3); Non-African American GFR(CKD) >90 (>60 ml/min/1.73 sqM); Sodium 138 mmol/L (137-145)
[2023-12-16 05:38] LABS: ABG Base Excess 0.3 mmol/L; ABG HCO3 26 mmol/L (21-25); ABG Oxygen Saturation 96.9 % (94-97); ABG PCO2 43 mmHg (35-45); ABG PH 7.39 (7.35-7.45); ABG PO2 82 mmHg (83-108); ABG TCO2 27 mmol/L (19-24); Allen Test Performed? Yes
[2023-12-16 06:01] LABS: C Reactive Protein 13.2 mg/dL (<1.0); Potassium 2.6 mmol/L (3.5-5.1)
[2023-12-16] MEDS ORDERED: Potassium Replacement Protocol 1 EACH MISC MISCELLANE PRN ×2 (06:05→06:06)
[2023-12-16] MEDS ORDERED: Magnesium Replacement Protocol 1 EACH MISC MISCELLANE PRN (06:09)
[2023-12-16] MEDS: MAGNESIUM SULFATE-D5W PMX 1 GM in DEXTROSE/WATER 1 100ML.BAG IVPB ONE (06:18)
[2023-12-16] MEDS: POTASSIUM CHLORIDE 20 MEQ in WATER FOR INJECTION 1 100ML.BAG IVPB SCH (06:18)
[2023-12-16] MEDS ORDERED: DEXTROSE 50% SYRINGE 50 ML IVP PRN ×2 (06:22)
--- NOTE | 2023-12-16 07:47 | XR ---
EXAMINATION TYPE: XR chest 1V portable DATE OF EXAM: 12/16/2023 COMPARISON: 12/15/2023 HISTORY: SOB, Follow Up FINDINGS: Indwelling tubes and catheters are unchanged. No change in bibasilar opacities. Stable appearance of the cardio-mediastinal structures at this time. Pleural effusion unchanged. IMPRESSION: 1. Stable portable chest. Clinical correlation and follow up until resolution is recommended. [facility], , 12/16/2023 7:45 AM
[2023-12-16] MEDS: ERGOCALCIFEROL 1,250 MCG (50,000 IU) CAPSULE PO SCH (08:18)
--- NOTE | 2023-12-16 10:00 | P.PN ---
Subjective This is a pleasant 48 years old male with past medical history of Crohn disease complicated with bowel perforation requiring ileostomy, also has 2 fistula in his anterior abdominal Wall, patient also has left upper chest portal to receive TPN, patient also able to take oral feeding. 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 He has history of respiratory failure requiring tracheostomy insertion with subsequent removal Patient lives at home with his 2 sons. Information were obtained with the help of his mother at bedside. Patient presents to the hospital at this time because of respiratory difficulty, he came to emergency room yesterday for the same reason and he was discharged home, he was noticed to have hypoxia with coughing but that is improved yesterday. At home he have recurrence of his symptoms so he decided to come to emergency room today. Patient somewhat drowsy and could not participate in history however has per mother he is drowsy because of lack of sleep and he is usually more awake. Patient denies chest pain, no abdominal pain, he has ileostomy bag in place with some loose stool, as per mother at bedside this is his normal consistency. He has external urinary catheter. Denies dysuria or urgency. Both legs looks weak, has right BKA, no swelling or cellulitis. Patient is afebrile, he was hypoxic 88% on room air. Slightly tachypneic around 20. He has unremarkable CBC, BMP, liver enzymes, troponin x 1 less than 0.012. proBNP is 21. Influenza A and type B, RSV, SARS (coronavirus) are undetected D-dimer is negative at 0.45 EKG showing sinus rhythm at [address]-T changes Chest x-ray showing low volume but no acute process per radiologist Venous pH is low normal at 7.3, bicarb is elevated 34 and pCO2 is elevated at 62. Patient received prednisone 40 mg and Zithromax prior to hospitalization. 12/13 Patient developed complete collapse of the right lung, which is apparent on the chest x-ray this morning and he is developing more hypoxia he was saturation 77 and 5 L, currently he is kept on BiPAP He has no fever Blood pressure stable 127/64 Patient started on Zosyn also he is on IV Solu-Medrol 40 mg twice daily He is on a Protonix and therapeutic dose of Lovenox Pro- Calcitonin is low at 0.16 pH is low with high pCO2. Patient is going to be transferred to the ICU 12/14 Patient currently remains in the ICU intubated and sedated, also he required a small dose of Levophed for blood pressure support He status post bronchoscopy second 1 today, about 100 milliliter of mucus secret ions pulled out. He has evidence of tracheomalacia as well but patent trachea. Bronchoscopy procedure reviewed with pulmonary team He is currently covered with IV vancomycin and Zosyn Cultures are still pending Chest x-ray showing endotracheal tube in position, right lower lobe infiltrate for pneumonia He is also on therapeutic dose of Lovenox continued from home 12/15 Patient remains in the ICU intubated and sedated with pulmonary/critical care team following closely and help with vent management Currently he is also requiring pressors, Levophed at 0.09 mcg/kg/min He is on IV vancomycin and Zosyn S/p bronchoscopy yesterday Sputum culture is growing haemophilus influenzae He is on home dose of Lovenox for 80 mg twice daily He is on normal saline 75 L/h Objective - Vital Signs Vital signs: Vital Signs Temp 98.3 F 12/16/23 08:00 Pulse 60 12/16/23 09:45 Resp 24 12/16/23 09:45 BP 101/54 12/16/23 09:45 Pulse Ox 94 L 12/16/23 09:45 FiO2 50 12/16/23 09:01 Intake & Output 12/15/23 12/16/23 12/16/23 18:59 06:59 18:59 Intake Total 0935.125 5298.448 460.274 Output Total 1240 490 125 Balance 351.088 3655.448 335.274 Weight 96.6 kg Intake: IV 1500 1259 375 Piperacillin-Tazobactam 3 100 100 100 .375 gm In Sodium Chloride 0.9% 100 ml @ 25 mls/hr IVPB Q8HR [facility] Rx# :[id number] Potassium Chloride 20 meq 200 In Water For Injection 1 100ml.bag @ 50 mls/hr IVPB Q2H ANNIE Rx#: [id number] Sodium Chloride 0.9% 1, 900 825 75 000 ml @ 75 mls/hr IV . [id number] ANNIE Rx#:[id number] Vancomycin 1,500 mg In 334 Sodium Chloride 0.9% 500 ml 500 ml @ 167 mls/hr IVPB ONCE ONE Rx#: [id number] Vancomycin 1,500 mg In 500 Sodium Chloride 0.9% 500 ml 500 ml @ 167 mls/hr IVPB Q12H [facility] Rx#: [id number] Intake, IV Titration 375.144 558.448 85.274 Amount Norepinephrine 4 mg In 189.870 214.873 Sodium Chloride 0.9% 250 ml @ 0.03 MCG/KG/MIN 10. 369 mls/hr IV .Q24H [facility]IE Rx#:[id number] propofoL 1,000 mg In 185.274 343.575 85.274 Empty Bag 1 bag @ 15 MCG/ KG/MIN 8.165 mls/hr IV . [id number] ANNIE Rx#:[id number] Oral 60 Output: Urine 390 490 125 Stool 850 Other: Voiding Method Indwelling Catheter Indwelling Catheter Indwelling Catheter ABP, PAP, CO, CI - Last Documented Arterial Blood Pressure 94/52 - Exam -GENERAL: The patient is intubated and sedated HEENT: Pupils are round and equally reacting to light. EOMI. No scleral icterus. No conjunctival pallor. Normocephalic, atraumatic. No pharyngeal erythema. No thyromegaly. CARDIOVASCULAR: S1 and S2 present. No murmurs, rubs, or gallops. PULMONARY: Decreased breath sounds on the right side, no wheezing , no crackles. ABDOMEN: Soft, nontender, nondistended, normoactive bowel sounds. No palpable organomegaly. MUSCULOSKELETAL: No joint swelling or deformity. EXTREMITIES: No cyanosis, clubbing, or pedal edema. NEUROLOGICAL: Gross neurological examination did not reveal any focal deficits. SKIN: No rashes. no petechiae. - Labs CBC & Chem 7: 12/16/23 04:49 12/16/23 04:49 Labs: Abnormal Lab Results - Last 24 Hours (Table) 12/16/23 12/16/23 12/16/23 Range/Units 04:49 04:49 04:49 Hgb 11.9 L (13.0-17.5) gm/dL MCHC 30.4 L (31.0-37.0) g/dL RDW 18.0 H (11.5-15.5) % ABG pO2 (83-108) mmHg ABG HCO3 (21-25) mmol/L ABG Total CO2 (19-24) mmol/L Potassium 2.6 L* (3.5-5.1) mmol/L Chloride 111 H (98-107) mmol/L Creatinine 0.41 L (0.66-1.25) mg/dL Calcium 8.1 L (8.4-10.2) mg/dL C-Reactive Protein 13.2 H (<1.0) mg/dL Procalcitonin 0.85 H (0.02-0.50) ng/mL 12/16/23 Range/Units 05:35 Hgb (13.0-17.5) gm/dL MCHC (31.0-37.0) g/dL RDW (11.5-15.5) % ABG pO2 82 L (83-108) mmHg ABG HCO3 26 H (21-25) mmol/L ABG Total CO2 27 H (19-24) mmol/L Potassium (3.5-5.1) mmol/L Chloride (98-107) mmol/L Creatinine (0.66-1.25) mg/dL Calcium (8.4-10.2) mg/dL C-Reactive Protein (<1.0) mg/dL Procalcitonin (0.02-0.50) ng/mL Microbiology - Last 24 Hours (Table) 12/13/23 20:40 Gram Stain - Final Sputum Sputum Culture - Final Haemophilus influenzae 12/14/23 11:45 Gram Stain - Preliminary Sputum Sputum Culture - Preliminary Assessment and Plan Assessment: Right lower lobe pneumonia, complicated by right lung collapse secondary to mucous plug status post bronchoscopy on 12/13 and 12/14 Septic shock secondary to above Acute hypoxic hypercapnic respiratory failure Acute respiratory acidosis with compensated metabolic alkalosis Possible obesity hypoventilation syndrome, possible elements of acute COPD cannot be ruled out Metabolic encephalopathy history of Crohn disease complicated with bowel perforation requiring ileostomy, also has 2 fistula in his anterior abdominal Wall, patient also has left upper chest portal to receive TPN, patient also able to take oral feeding He has history of respiratory failure requiring tracheostomy insertion with subsequent removal 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 Continue same treatment. Continue with symptomatic treatment. Resume home medication. Monitor labs and vitals. DVT and GI prophylaxis. Further recommendations as per clinical course of the patient DVT prophylaxis: Subcutaneous Lovenox 80 mg twice daily home dose GI Prophylaxis: Pepcid PT/OT: Pending Prognosis is guarded
[2023-12-16 10:15] LABS: Erythrocyte Sedimentation Rate 56 mm/Hr (0-15)
[2023-12-16] MEDS: IPRATROPIUM-ALBUTEROL 3 ML NEB INHALATION SCH (11:26)
--- NOTE | 2023-12-16 12:03 | P.PN ---
Subjective Progress Note Date: 12/16/23 Principal diagnosis: Acute hypoxic respiratory failure secondary to right lung pneumonia secondary to haemophilus influenza. This is a 48-year-old male patient, brought into the hospital because of hypoxemia that was noted at home. The patient is not having any worsening short ness of breath. No reported aspiration. Occasional cough and congestion. No significant sputum production. The patient has a very extensive past medical history. He is known to have previous history of Crohn's disease that has been complicated by bowel perforation for which the patient required a bowel resection and currently has an ileostomy. 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 Note that his course was rather complicated following his previous bowel surgery. The patient had prolonged ventilator dependent respiratory failure requiring intubation mechanical ventilation and subsequent tracheostomy tube insertion. The patient also required hemodialysis for renal failure and renal replacement therapy. Ultimately, dialysis has been discontinued as the patient renal function improved and the tracheostomy tube was also eliminated. 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 His last evaluation here in our hospital was and February 2023 and at that time, the patient came into us with generalized weakness and fatigue and he was treated for sepsis/bacteremia and the treatment was successful. He continues to have a port in his left anterior chest area through which she receives TPN to supplement his oral intake. His current white cell count at 6.3 with a heme of 13 and a platelet count of 152. Sodium is 138 with a potassium level of 4.7, BUN 16 with a creatinine of 0.33. His UA is negative. Viral screen is also negative. The patient's slightly lethargic. He is arousable and awake. He is currently on 3 L of oxygen by nasal cannula with pulse ox 93%. His chest x-ray shows chronic elevation of the right hemidiaphragm without any acute cardiopulmonary process. The patient has been maintained on anticoagulation on outpatient basis and he is on Lovenox 80 mg subcu every 12 hours. On 12/14/2023, the patient is being seen for a follow-up in the emergency department. The patient was slightly hypoxic and was admitted to the hospital for further investigation. Overnight, the patient's condition became worse. The patient had a repeat chest x-ray earlier this morning and the patient was found to have complete collapse of the right lung with volume loss. There was complete widening out of the right lung. Following that, the patient became progressively hypoxic. The patient had a blood gas that showed a pH of 7.28 wit h a pCO2 of 78 and pO2 of 63 consistent with an acute on top of chronic respiratory acidosis with significant hypoxemia. Based on that, the patient was placed on a BiPAP at a pressure of 12 over 6 cm of water. Subsequently, the oxygenation improved and the patient got transferred to the ICU. Prior to next discussion with the patient. The patient was awake and alert and he seemed to be able to make his own medical decisions. I also contacted the family members and discussed with them the findings. The findings are consistent with mucous plugging and volume loss and a complete atelectasis of the right lung. The patient will obviously need to be supported with mechanical ventilator and s ubsequently have a bronchoscopy done regarding the right lung atelectasis. Patient was agreeable to that. I initially attempted to do the bronchoscope under conscious sedation. Give the patient a total of 4 mg of Versed. However, following that, I noted that the patient became progressively more hypoxic while being on high flow nasal oxygen and 100% nonrebreather facemask. Based on that, I intubated the patient. During the intubation process, I noted that it was difficult to push and the #8 orotracheal tube. 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 Nevertheless, I was able to pass the ET tube to the level of the tracheal stenosis. There was adequate ventilation at that point. I also inserted the bronchoscope and therapeutic airway suctioning was done with copious amount of thick purulent creamy respiratory secretions were identified in the right lower lobe and right mainstem bronchus. Total amount of volume aspirated from the right lung was in the order of 40 cc of purulent material. The patient was started on a combination of Zosyn and vancomycin. Currently is on propofol at 20 mcg/kg/min. Hemodynamically stable. Postprocedure chest x-ray done showed marked improvement in aeration of the right lung with marked reduction in the right lung atelectasis. There was interval development of a small left-sided pulmonary infiltrates. ET tube was seen in the upper tracheal area. Unable to push in the ET tube any further due to underlying tracheal stenosis. Hemodynamically stable at this point in time. Family has been informed of the changes. The white cell count from this morning is at 10 with a hemoglobin 15 and a platelet count of 155. Sodium is at 138, potassium is 4.4, BUN 21 with a creatinine of 0.36. Currently intubated on the mechanical ventilator. 12/15/2023, patient is being seen for a follow-up. The patient is arousable while being on propofol which is running at 50 mcg/kg/min. He is able to communicate even while being on sedation. As mentioned, he was intubated and placed on mechanical ventilator and copious amounts of mucous plugs was aspirated from the right lung yesterday. This was done following the bronchoscopy. Cultures are still pending for now although there is a preliminary sputum culture that showed haemophilus influenza. The patient is currently on a combination Zosyn and vancomycin. Meanwhile, the patient remains on mechanical ventilator assist-control mode with rate of 24, tidal volume of 400, FiO2 of 60% with a PEEP of 5. Chest x-ray still showing atelectatic changes right lung base. There is improved aeration of the right lung in general. The blood gas showed a pH of 7.5 with a pCO2 of 45 and a pO2 of 75. The blood work shows a white cell count of 13.4 with a hemoglobin of 12.4 and platelet count of 196. Sodium is 136, potassium is at 4.5, BUN is 18 with a creatinine of 0.35. The patient is also on IV fluids with normal saline at rate of 75 cc an hour. He is on norepinephrine at 0.04 mcg/kg/min. No other significant events overnight. Output from the abdominal fistulas and ileostomy has been noted. Later today on 12/16/23, patient remains in the ICU, intubated and mechanically ventilated. He is on assist-control rate of 24 tidal volume 400 FiO2 50% and PEEP of 5 ABG showed a pO2 of 82 pCO2 43 pH of 7.39. Patient remains on norepinephrine at 0.09 mcg/kg/min on propofol at 60 mcg/kg/min he is also on TPN. Patient is receiving vancomycin and Zosyn for what seems to be haemophilus influenza pneumonia, may consider stopping vancomycin and continue Zosyn. Blood cultures are pending, cultures from BAL are pending. Procalcitonin level is 0.85. Chest x-ray continues to show extensive disease involving the right lower lobe and left lower lobe. WBC count is 8 hemoglobin 11.9. Potassium is low at 2.6 being addressed as per protocol. Procalcitonin level is 0.85. C-reactive protein 13.2. According to the nurses patient was appropriate off sedation earlier this morning, but looking at his overall picture and his clinical findings on examination, patient is not ready for weaning and extubation. Objective - Vital Signs Vital signs: Vital Signs Temp 98.3 F 12/16/23 08:00 Pulse 66 12/16/23 11:41 Resp 24 12/16/23 11:41 BP 107/57 12/16/23 11:30 Pulse Ox 97 12/16/23 11:30 FiO2 50 12/16/23 11:26 Intake & Output 12/15/23 12/16/23 12/16/23 18:59 06:59 18:59 Intake Total 3415.642 8650.448 792.130 Output Total 1240 490 165 Balance 777.255 4685.448 627.130 Weight 96.6 kg Intake: IV 1500 1259 450 Piperacillin-Tazobactam 3 100 100 100 .375 gm In Sodium Chloride 0.9% 100 ml @ 25 mls/hr IVPB Q8HR [facility] Rx# :[id number] Potassium Chloride 20 meq 200 In Water For Injection 1 100ml.bag @ 50 mls/hr IVPB Q2H [facility] Rx#: [id number] Sodium Chloride 0.9% 1, 900 825 150 000 ml @ 75 mls/hr IV . [id number] [facility] Rx#:[id number] Vancomycin 1,500 mg In 334 Sodium Chloride 0.9% 500 ml 500 ml @ 167 mls/hr IVPB ONCE ONE Rx#: [id number] Vancomycin 1,500 mg In 500 Sodium Chloride 0.9% 500 ml 500 ml @ 167 mls/hr IVPB Q12H [facility] Rx#: [id number] Intake, IV Titration 375.144 558.448 342.130 Amount Norepinephrine 4 mg In 189.870 214.873 231.229 Sodium Chloride 0.9% 250 ml @ 0.03 MCG/KG/MIN 10. 369 mls/hr IV .Q24H [facility] Rx#:[id number] propofoL 1,000 mg In 185.274 343.575 110.901 Empty Bag 1 bag @ 15 MCG/ KG/MIN 8.165 mls/hr IV . [id number] [facility] Rx#:[id number] Oral 60 Output: Urine 390 490 165 Stool 850 Other: Voiding Method Indwelling Catheter Indwelling Catheter Indwelling Catheter ABP, PAP, CO, CI - Last Documented Arterial Blood Pressure 84/66 - Exam General revealed a 48-year-old white male, intubated, mechanically ventilated, endotracheal tube and orogastric tube are intact. Head exam was generally normal. There was no scleral icterus or corneal arcus. Mucous membranes were moist. Neck supple. Full range of motion. No adenopathy thyromegaly or neck vein distention. Tracheostomy scar is noted over the anterior lower area of the neck. Cardiovascular: Normal S1-S2, no S3 gallop, no murmur. Lungs scattered rhonchi and wheezing noted bilaterally. Abdomen distended, with a midline dressing from previous surgery. No bowel sounds noted. The abdomen was soft, non-tender, and without masses, organomegal y, or appreciable enlargement of the abdominal aorta. The patient has a midline abdominal incision which is dry clean and intact and it is well-healed. The patient has an ileostomy and the patient also has anterior abdominal wall fistula which is draining Extremities are intact. No cyanosis. Clubbing noted. The patient has a right [id number] amputation. Evidence of edema noted Skin is without rash or lesion. Neurologic, not assessed, but according to the nurse the patient was appropriate earlier this morning off sedation Catheter: Could not assess - Labs CBC & Chem 7: 12/16/23 04:49 12/16/23 04:49 Labs: Abnormal Lab Results - Last 24 Hours (Table) 12/16/23 12/16/23 12/16/23 Range/Units 04:49 04:49 04:49 Hgb 11.9 L (13.0-17.5) gm/dL MCHC 30.4 L (31.0-37.0) g/dL RDW 18.0 H (11.5-15.5) % ESR 56 H (0-15) mm/Hr ABG pO2 (83-108) mmHg ABG HCO3 (21-25) mmol/L ABG Total CO2 (19-24) mmol/L Potassium 2.6 L* (3.5-5.1) mmol/L Chloride 111 H (98-107) mmol/L Creatinine 0.41 L (0.66-1.25) mg/dL Calcium 8.1 L (8.4-10.2) mg/dL C-Reactive Protein 13.2 H (<1.0) mg/dL Procalcitonin 0.85 H (0.02-0.50) ng/mL 12/16/23 Range/Units 05:35 Hgb (13.0-17.5) gm/dL MCHC (31.0-37.0) g/dL RDW (11.5-15.5) % ESR (0-15) mm/Hr ABG pO2 82 L (83-108) mmHg ABG HCO3 26 H (21-25) mmol/L ABG Total CO2 27 H (19-24) mmol/L Potassium (3.5-5.1) mmol/L Chloride (98-107) mmol/L Creatinine (0.66-1.25) mg/dL Calcium (8.4-10.2) mg/dL C-Reactive Protein (<1.0) mg/dL Procalcitonin (0.02-0.50) ng/mL Microbiology - Last 24 Hours (Table) 12/14/23 11:45 Gram Stain - Final Sputum Sputum Culture - Final Haemophilus influenzae 12/13/23 20:40 Gram Stain - Final Sputum Sputum Culture - Final Haemophilus influenzae Assessment and Plan Assessment: Impression: Acute on chronic hypoxic respiratory failure requiring intubation mechanical ventilation. 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 from previous tracheostomy History of Crohn's disease Right hemidiaphragm elevation/chronic Acute sepsis and previous history of sepsis related to Serratia marcescens History of CVA with right-sided neurologic deficit History of DVT History of right below-knee amputation History of Crohn's disease and multiple abdominal surgeries with enterocutaneous fistulas and history of ileostomy History of cardiac arrest in 2021 Obesity Recommendation: Continue ventilatory support Continue hemodynamic support Continue nutritional support Continue antibiotics will likely keep the patient only on Zosyn and discontinue vancomycin Continue GI and DVT prophylaxis patient is on Lovenox 80 mg subcu every 12 hours Continue wound care and ileostomy care Continue present ICU measures Patient is definitely critically ill, Critical care time is over 30 minutes Prognosis is extremely poor and guarded. We have to eventually consider tracheostomy again on this patient. Time with Patient: Greater than 30
[2023-12-16] MEDS: VANCOMYCIN TROUGH DUE 1 EACH MISC MISCELLANE ONE (12:37)
[2023-12-16 12:59] LABS: Phosphorus 2.3 mg/dL (2.5-4.5)
[2023-12-16] MEDS: SODIUM PHOSPHATE 15 MMOL in DEXTROSE 5% IN WATER 250 ML IVPB ONE (14:59)
[2023-12-16] MEDS: MVI, ADULT NO.4 WITH VIT K 10 ML, TRACE (CONC-1ML/DOSE) 1 ML in AMINO ACID 5%-D20W+LYTE... IV SCH (16:11)
[2023-12-16] MEDS: POTASSIUM CHLORIDE 20 MEQ in WATER FOR INJECTION 1 100ML.BAG IVPB STA (17:36)
[2023-12-17] MEDS ORDERED: LORazepam 2 MG/ML INJ IV PRN (06:32)
[2023-12-17 06:37] LABS: Anisocytosis Slight; Basophils % (A) 1 %; Eosinophils # (A) 0.2 k/uL (0-0.7); Eosinophils % (A) 4 %; HCT 40.7 % (39.0-53.0); HGB 11.9 gm/dL (13.0-17.5); Hypochromasia Marked; Lymphocytes # (A) 1.6 k/uL (1.0-4.8); Lymphocytes % (A) 29 %; MCH 26.8 pg (25.0-35.0); MCHC 29.3 g/dL (31.0-37.0); MCV 91.7 fL (80.0-100.0); Mean Platelet Volume 9.4; Monocytes # (A) 0.3 k/uL (0-1.0); Monocytes % (A) 6 %; Neutrophils # (A) 3.3 k/uL (1.3-7.7); Neutrophils % (A) 59 %; Platelet Count 166 k/uL (150-450); Poikilocytosis Slight; RBC 4.44 m/uL (4.30-5.90); RDW 17.4 % (11.5-15.5); WBC 5.6 k/uL (3.8-10.6)
[2023-12-17 06:43] LABS: Ionized Calcium 4.4 mg/dL (4.5-5.3)
[2023-12-17 06:51] LABS: African American GFR (CKD) >90 (>60 ml/min/1.73 sqM); Anion Gap 4 mmol/L; Blood Urea Nitrogen 4 mg/dL (9-20); Calcium 7.9 mg/dL (8.4-10.2); Carbon Dioxide 21 mmol/L (22-30); Chloride 112 mmol/L (98-107); Glucose 120 mg/dL (74-99); Magnesium 1.6 mg/dL (1.6-2.3); Non-African American GFR(CKD) >90 (>60 ml/min/1.73 sqM); Sodium 137 mmol/L (137-145)
[2023-12-17 06:52] LABS: Potassium 3.5 mmol/L (3.5-5.1)
[2023-12-17] MEDS: POTASSIUM BICARBONATE/CIT AC 20 MEQ TABLET.EFF PO ONE (07:48)
[2023-12-17] MEDS: MAGNESIUM SULFATE-D5W PMX 1 GM in DEXTROSE/WATER 1 100ML.BAG IVPB SCH (07:48)
--- NOTE | 2023-12-17 07:55 | XR ---
EXAMINATION TYPE: XR chest 1V portable DATE OF EXAM: 12/17/2023 COMPARISON: 12/16/2023 HISTORY: SOB, Follow Up FINDINGS: Indwelling tubes and catheters are unchanged. No change in bibasilar opacities. Stable appearance of the cardio-mediastinal structures at this time. IMPRESSION: 1. Stable portable chest. Clinical correlation and follow up until resolution is recommended. [facility], , 12/17/2023 7:52 AM
[2023-12-17] MEDS: MVI, ADULT NO.4 WITH VIT K 10 ML, TRACE (CONC-1ML/DOSE) 1 ML, PARENTERAL ELECTROLYTES 2... IV SCH (14:45)
--- NOTE | 2023-12-17 14:52 | P.PN ---
Subjective Progress Note Date: 12/17/23 Principal diagnosis: Acute hypoxic respiratory failure secondary to right lung pneumonia secondary to haemophilus influenza. This is a 48-year-old male patient, brought into the hospital because of hypoxemia that was noted at home. The patient is not having any worsening short ness of breath. No reported aspiration. Occasional cough and congestion. No significant sputum production. The patient has a very extensive past medical history. He is known to have previous history of Crohn's disease that has been complicated by bowel perforation for which the patient required a bowel resection and currently has an ileostomy. 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 Note that his course was rather complicated following his previous bowel surgery. The patient had prolonged ventilator dependent respiratory failure requiring intubation mechanical ventilation and subsequent tracheostomy tube insertion. The patient also required hemodialysis for renal failure and renal replacement therapy. Ultimately, dialysis has been discontinued as the patient renal function improved and the tracheostomy tube was also eliminated. 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 His last evaluation here in our hospital was and February 2023 and at that time, the patient came into us with generalized weakness and fatigue and he was treated for sepsis/bacteremia and the treatment was successful. He continues to have a port in his left anterior chest area through which she receives TPN to supplement his oral intake. His current white cell count at 6.3 with a heme of 13 and a platelet count of 152. Sodium is 138 with a potassium level of 4.7, BUN 16 with a creatinine of 0.33. His UA is negative. Viral screen is also negative. The patient's slightly lethargic. He is arousable and awake. He is currently on 3 L of oxygen by nasal cannula with pulse ox 93%. His chest x-ray shows chronic elevation of the right hemidiaphragm without any acute cardiopulmonary process. The patient has been maintained on anticoagulation on outpatient basis and he is on Lovenox 80 mg subcu every 12 hours. On 12/14/2023, the patient is being seen for a follow-up in the emergency department. The patient was slightly hypoxic and was admitted to the hospital for further investigation. Overnight, the patient's condition became worse. The patient had a repeat chest x-ray earlier this morning and the patient was found to have complete collapse of the right lung with volume loss. There was complete widening out of the right lung. Following that, the patient became progressively hypoxic. The patient had a blood gas that showed a pH of 7.28 wit h a pCO2 of 78 and pO2 of 63 consistent with an acute on top of chronic respiratory acidosis with significant hypoxemia. Based on that, the patient was placed on a BiPAP at a pressure of 12 over 6 cm of water. Subsequently, the oxygenation improved and the patient got transferred to the ICU. Prior to next discussion with the patient. The patient was awake and alert and he seemed to be able to make his own medical decisions. I also contacted the family members and discussed with them the findings. The findings are consistent with mucous plugging and volume loss and a complete atelectasis of the right lung. The patient will obviously need to be supported with mechanical ventilator and s ubsequently have a bronchoscopy done regarding the right lung atelectasis. Patient was agreeable to that. I initially attempted to do the bronchoscope under conscious sedation. Give the patient a total of 4 mg of Versed. However, following that, I noted that the patient became progressively more hypoxic while being on high flow nasal oxygen and 100% nonrebreather facemask. Based on that, I intubated the patient. During the intubation process, I noted that it was difficult to push and the #8 orotracheal tube. 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 Nevertheless, I was able to pass the ET tube to the level of the tracheal stenosis. There was adequate ventilation at that point. I also inserted the bronchoscope and therapeutic airway suctioning was done with copious amount of thick purulent creamy respiratory secretions were identified in the right lower lobe and right mainstem bronchus. Total amount of volume aspirated from the right lung was in the order of 40 cc of purulent material. The patient was started on a combination of Zosyn and vancomycin. Currently is on propofol at 20 mcg/kg/min. Hemodynamically stable. Postprocedure chest x-ray done showed marked improvement in aeration of the right lung with marked reduction in the right lung atelectasis. There was interval development of a small left-sided pulmonary infiltrates. ET tube was seen in the upper tracheal area. Unable to push in the ET tube any further due to underlying tracheal stenosis. Hemodynamically stable at this point in time. Family has been informed of the changes. The white cell count from this morning is at 10 with a hemoglobin 15 and a platelet count of 155. Sodium is at 138, potassium is 4.4, BUN 21 with a creatinine of 0.36. Currently intubated on the mechanical ventilator. 12/15/2023, patient is being seen for a follow-up. The patient is arousable while being on propofol which is running at 50 mcg/kg/min. He is able to communicate even while being on sedation. As mentioned, he was intubated and placed on mechanical ventilator and copious amounts of mucous plugs was aspirated from the right lung yesterday. This was done following the bronchoscopy. Cultures are still pending for now although there is a preliminary sputum culture that showed haemophilus influenza. The patient is currently on a combination Zosyn and vancomycin. Meanwhile, the patient remains on mechanical ventilator assist-control mode with rate of 24, tidal volume of 400, FiO2 of 60% with a PEEP of 5. Chest x-ray still showing atelectatic changes right lung base. There is improved aeration of the right lung in general. The blood gas showed a pH of 7.5 with a pCO2 of 45 and a pO2 of 75. The blood work shows a white cell count of 13.4 with a hemoglobin of 12.4 and platelet count of 196. Sodium is 136, potassium is at 4.5, BUN is 18 with a creatinine of 0.35. The patient is also on IV fluids with normal saline at rate of 75 cc an hour. He is on norepinephrine at 0.04 mcg/kg/min. No other significant events overnight. Output from the abdominal fistulas and ileostomy has been noted. Later today on 12/16/23, patient remains in the ICU, intubated and mechanically ventilated. He is on assist-control rate of 24 tidal volume 400 FiO2 50% and PEEP of 5 ABG showed a pO2 of 82 pCO2 43 pH of 7.39. Patient remains on norepinephrine at 0.09 mcg/kg/min on propofol at 60 mcg/kg/min he is also on TPN. Patient is receiving vancomycin and Zosyn for what seems to be haemophilus influenza pneumonia, may consider stopping vancomycin and continue Zosyn. Blood cultures are pending, cultures from BAL are pending. Procalcitonin level is 0.85. Chest x-ray continues to show extensive disease involving the right lower lobe and left lower lobe. WBC count is 8 hemoglobin 11.9. Potassium is low at 2.6 being addressed as per protocol. Procalcitonin level is 0.85. C-reactive protein 13.2. According to the nurses patient was appropriate off sedation earlier this morning, but looking at his overall picture and his clinical findings on examination, patient is not ready for weaning and extubation. Patient was evaluated today on 12/17/2023, remains in the ICU, intubated and mechanically ventilated. Patient is on assist-control rate of 24 tidal volume 400 FiO2 60% PEEP increased to 8. ABG not done today, it is pending.WBC count is 5.6 hemoglobin 11.9. Basic metabolic profile is normal BUN is 4 creatinine 0.37 patient remains on vancomycin and Zosyn, procalcitonin level is 0.85 chest x-ray shows improvement in bibasilar opacities. Patient is very norepinephrine at 0.09 mcg/kg/min he is also on TPN at 30 cc/h propofol at 70 mcg/kg/min and IV fluids 75 cc/h 0.9 normal saline. His sputum came back positive for H. influenzae and MRSA. Patient again is on Zosyn and vancomycin. I am planning today to give the patient a weaning trial, and I did, few hours later I was notified that the patient's weaning parameters where very poor off propofol, hence I recommended that he goes back on propofol, and he is not ready for weaning. Objective - Vital Signs Vital signs: Vital Signs Temp 98.1 F 12/17/23 12:00 Pulse 61 12/17/23 13:45 Resp 24 12/17/23 13:45 BP 100/56 12/17/23 13:45 Pulse Ox 95 12/17/23 13:45 FiO2 70 12/17/23 13:25 Intake & Output 12/16/23 12/17/23 12/17/23 18:59 06:59 18:59 Intake Total 2099.712 2795.213 0494 Output Total 1055 1485 575 Balance 1044.712 333.290 945 Weight 96.6 kg 98 kg Intake: IV 1335 1455 1120 Invasive Line 3 10 30 20 Piperacillin-Tazobactam 3 100 100 .375 gm In Sodium Chloride 0.9% 100 ml @ 25 mls/hr IVPB Q8HR ANNIE Rx# :[id number] Potassium Chloride 20 meq 500 In Water For Injection 1 100ml.bag @ 50 mls/hr IVPB Q2H ANNIE Rx#: [id number] Sodium Chloride 0.9% 1, 225 825 600 000 ml @ 75 mls/hr IV . [id number] ANNIE Rx#:[id number] Vancomycin 1,500 mg In 500 500 500 Sodium Chloride 0.9% 500 ml 500 ml @ 167 mls/hr IVPB Q12H ANNIE Rx#: [id number] Intake, IV Titration 764.712 363.290 400 Amount Magnesium Sulfate-D5w Pmx 200 1 gm In Dextrose/Water 1 100ml.bag @ 100 mls/hr IVPB Q1H ANNIE Rx#: [id number] Norepinephrine 4 mg In 485.229 Sodium Chloride 0.9% 250 ml @ 0.03 MCG/KG/MIN 10. 369 mls/hr IV .Q24H ANNIE Rx#:[id number] Piperacillin-Tazobactam 3 100 .375 gm In Sodium Chloride 0.9% 100 ml @ 25 mls/hr IVPB Q8HR ANNIE Rx# :[id number] propofoL 1,000 mg In 279.483 363.290 100 Empty Bag 1 bag @ 15 MCG/ KG/MIN 8.165 mls/hr IV . [id number] ANNIE Rx#:[id number] Output: Urine 655 1035 575 Stool 400 450 Other: Voiding Method Indwelling Catheter Indwelling Catheter Indwelling Catheter ABP, PAP, CO, CI - Last Documented Arterial Blood Pressure 51/48 - Exam General revealed a 48-year-old white male, intubated, mechanically ventilated, endotracheal tube and orogastric tube are intact. Head exam was generally normal. There was no scleral icterus or corneal arcus. Mucous membranes were moist. Neck supple. Full range of motion. No adenopathy thyromegaly or neck vein distention. Tracheostomy scar is noted over the anterior lower area of the neck. Cardiovascular: Normal S1-S2, no S3 gallop, no murmur. Lungs, diminished breath sound bilaterally no rhonchi no wheezes Abdomen distended, with a midline dressing from previous surgery. No bowel sounds noted. The abdomen was soft, non-tender, and without masses, organ omegaly, . The patient has a midline abdominal incision which is dry clean and intact and it is well-healed. The patient has an ileostomy and the patient also has anterior abdominal wall fistula which is draining Extremities are intact. No cyanosis. Clubbing noted. The patient has a right [id number] amputation. Evidence of edema noted Skin is without rash or lesion. Neurologic, not assessed, but according to the nurse the patient was appropriate earlier this morning off sedation Catheter: Could not assess - Labs CBC & Chem 7: 12/17/23 06:23 12/17/23 06:23 Labs: Abnormal Lab Results - Last 24 Hours (Table) 12/16/23 12/17/23 12/17/23 Range/Units 12:36 06:23 06:23 Hgb 11.9 L (13.0-17.5) gm/dL MCHC 29.3 L (31.0-37.0) g/dL RDW 17.4 H (11.5-15.5) % Chloride 112 H (98-107) mmol/L Carbon Dioxide 21 L (22-30) mmol/L BUN 4 L (9-20) mg/dL Creatinine 0.37 L (0.66-1.25) mg/dL Glucose 120 H (74-99) mg/dL Calcium 7.9 L (8.4-10.2) mg/dL Ionized Calcium Nita 4.4 L (4.5-5.3) mg/dL Triglycerides 278.00 H (0.00-149.00) mg/dL Microbiology - Last 24 Hours (Table) 12/14/23 19:10 Nasal Screen MRSA/MSSA - Final Nasal Swab Methicillin resist S. aureus 12/14/23 11:45 Gram Stain - Final Sputum Sputum Culture - Final Haemophilus influenzae Assessment and Plan Assessment: Impression: Acute on chronic hypoxic respiratory failure requiring intubation mechanical ventilation. Acute right-sided pneumonia with significant mucous plugging noted during br onchoscopy, secondary to haemophilus influenza Acute on chronic hypercapnic respiratory failure Chronic tracheal stenosis as noted on bronchoscopy from previous tracheostomy History of Crohn's disease Right hemidiaphragm elevation/chronic Acute sepsis and previous history of sepsis related to Serratia marcescens History of CVA with right-sided neurologic deficit History of DVT History of right below-knee amputation History of Crohn's disease and multiple abdominal surgeries with enterocutaneous fistulas and history of ileostomy History of cardiac arrest in 2021 Obesity Recommendation: Continue ventilatory support, patient had very poor weaning parameters today, hence no weaning was pursued any further. Continue hemodynamic support Continue nutritional support Continue antibiotics, vancomycin and Zosyn Continue GI and DVT prophylaxis patient is on Lovenox 80 mg subcu every 12 hours Continue wound care and ileostomy care Continue present ICU measures Patient remains critically ill Critical care time is over 30 minutes Tracheostomy may have to be considered down the line for Time with Patient: Greater than 30
[2023-12-17] MEDS ORDERED: MVI, ADULT NO.4 WITH VIT K 10 ML, TRACE (CONC-1ML/DOSE) 1 ML in AMINO ACID 5%-D20W+LYTE... IV SCH (15:00)
--- NOTE | 2023-12-17 15:46 | P.CRDCN ---
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 Patient presented 12/12 secondary to respiratory distress, coughing and concern of aspiration. He was intubated and hypoxic and has been weaning on ventilator. Cultures growing out H. influenzae and bursa. Cardiology was consult at secondary bradycardia. Patient noted to be sinus bradycardia with heart rate 41 bpm at its lowest mostly while he is intubated and sedated and patient somnolent. He denies any chest pain or pressure. He is on propofol. He has been receiving metoprolol 12.5 mg twice a day. REVIEW OF SYSTEMS At the time of my exam: Unable to obtain secondary patient being intubated and sedated PHYSICAL EXAMINATION Vital signs reviewed. CONSTITUTIONAL: No apparent distress, intubated and sedated, lethargic HEENT: Head is normocephalic. Pupils are equal, round. Sclerae anicteric. Mucous membranes of the mouth are moist. No JVD. No carotid bruit. CHEST EXAMINATION: Lungs are clear to auscultation. No chest wall tenderness is noted on palpation or with deep breathing. HEART EXAMINATION: Regular rate and rhythm. S1, S2 heard. No murmurs, gallops or rub. ABDOMEN: Soft, nontender. Positive bowel sounds. EXTREMITIES: 2+ peripheral pulses, no lower extremity edema and no calf tenderness. NEUROLOGIC EXAMINATION: Patient is somnolent on ventilator ASSESSMENT Asymptomatic sinus bradycardia I clearly related to increased vagal tone, beta kedar, sedation History of SVT on metoprolol Acute on chronic respiratory failure related to aspiration plus or minus H influenza pneumonia Crohn's disease Ileostomy History of stroke History of lower extremity thrombus status post BKA PLAN Patient with asymptomatic sinus bradycardia. Likely exacerbated by increased fatalist state and patient sleeping. We will hold his metoprolol for now however and restart if he has further episodes of SVT. Continue to monitor symptomatically. Past Medical History Past Medical History: CVA/TIA, Deep Vein Thrombosis (DVT) Additional Past Medical History / Comment(s): Crohn disease and he had a compl icated bowel perforation requiring ileostomy and he has ongoing abdominal wall fistula on TPN and oral intake , Hx CVA in 2013, RUE (DVT) and RLE, BKA in the RLE due to an arterial clot/gangrene,. Previous respiratory failure requiring tracheostomy insertion and subsequent removal History of Any Multi-Drug Resistant Organisms: MRSA Date of last positivie culture/infection: 12/14/23 MDRO Source:: nasal Past Surgical History: Cholecystectomy, Orthopedic Surgery Additional Past Surgical History / Comment(s): Arm surgery, right leg below knee amputation, ostomy (2021) Past Anesthesia/Blood Transfusion Reactions: No Reported Reaction Past Psychological History: No Psychological Hx Reported Additional Psychological History / Comment(s): PT STATED FEW DAYS AGO STARTED HAVING PAIN IN UPPER THIGH AND SWELLING THAT HAS PROGERESSED Smoking Status: Former smoker Past Alcohol Use History: None Reported Additional Past Alcohol Use History / Comment(s): QUIT SMOKING IN 2016, STARTED SMOKING AT AGE 16, 1PPD. Past Drug Use History: None Reported - Past Family History Father Additional Family Medical History / Comment(s): DAD IN HIS TWENTIES - CAUSE UNKNOWN. Mother Family Medical History: Diabetes Mellitus Brother(s) Family Medical History: Cancer Additional Family Medical History / Comment(s): Kidney cancer as a baby. Medications and Allergies Home Medications Medication Instructions Recorded Confirmed Type Enoxaparin [Lovenox] 80 mg SQ BID@0900,2100 07/07/22 12/13/23 History Pantoprazole [Protonix] 40 mg PO DAILY@0900 07/07/22 12/13/23 History Albuterol Sulfate [Albuterol 1 - 2 puff PO RT-Q4H PRN 09/10/22 12/13/23 History Sulfate Hfa] Loperamide HCl [Loperamide] 4 mg PO QID@08,12,16,20 11/10/22 12/13/23 History Albuterol Inhaler [Ventolin Hfa 2 puff INHALATION QID PRN #8 gm 12/12/23 12/13/23 Rx Inhaler] Ferrous Sulfate [Feosol] 325 mg PO DAILY@0900 12/12/23 12/13/23 History Heparin Sodium,Porcine/Pf [Heparin 1 dose IV DAILY PRN 12/12/23 12/13/23 History 500 Unit/5 ml (100/ml) Flush] Metoprolol Tartrate [Lopressor] 12.5 mg PO BID@0900,2100 12/12/23 12/13/23 History Omeprazole [PriLOSEC] 40 mg PO DAILY #30 cap 12/12/23 12/13/23 Rx Sodium Chloride 0.9% [Saline 0.9%] 10 ml IV DAILY PRN 12/12/23 12/13/23 History Vitamin A 2,400 mcg PO DAILY@0900 12/12/23 12/13/23 History traZODone HCL [Desyrel] 50 mg PO HS PRN 12/12/23 12/13/23 History Azithromycin [Zithromax] 0 mg PO DIRECTED #6 tab 12/13/23 Rx Cholecalciferol (Vitamin D3) 1,250 mcg PO MOTH 12/13/23 12/13/23 History [Vitamin D3 (1250 Mcg = 50,000 Iu)] Promethazine 6.25MG/5Ml [Phenergan 5 ml PO Q4HR PRN #120 ml 12/13/23 Rx Syrup] Allergies Allergy/AdvReac Type Severity Reaction Status Date / Time No Known Allergies Allergy Verified 12/13/23 08:30 Physical Exam Vitals: Vital Signs Temp Pulse Resp BP Pulse Ox FiO2 12/17/23 13:45 61 24 100/56 95 12/17/23 13:30 61 24 103/58 99 12/17/23 13:25 70 12/17/23 13:15 58 L 24 107/57 99 12/17/23 13:06 100 12/17/23 13:00 70 24 98/48 90 L 12/17/23 12:45 67 24 97/49 94 L 12/17/23 12:30 70 24 112/54 94 L 12/17/23 12:15 78 24 120/49 12/17/23 12:00 98.1 F 80 24 135/72 93 L 70 12/17/23 11:49 70 12/17/23 11:45 80 22 122/66 97 12/17/23 11:35 67 12/17/23 11:30 70 18 103/63 98 12/17/23 11:26 50 12/17/23 11:25 69 12/17/23 11:15 67 27 H 105/60 97 12/17/23 11:00 61 24 101/54 96 12/17/23 10:45 60 24 95/55 95 12/17/23 10:42 50 12/17/23 10:30 57 L 24 95/52 93 L 12/17/23 10:15 58 L 24 95/52 94 L 12/17/23 10:00 60 24 93/53 93 L 12/17/23 09:45 62 24 96/53 94 L 12/17/23 09:30 65 24 109/62 95 12/17/23 09:15 67 24 90/46 94 L 12/17/23 09:00 66 24 111/67 94 L 12/17/23 08:45 74 26 H 110/61 95 12/17/23 08:30 61 24 117/62 95 12/17/23 08:16 65 12/17/23 08:15 69 25 H 102/52 95 12/17/23 08:00 98.2 F 63 24 104/51 91 L 65 12/17/23 07:55 65 12/17/23 07:52 62 60 12/17/23 07:45 60 24 99/52 90 L 12/17/23 07:30 60 24 99/52 90 L 12/17/23 07:15 64 24 102/55 87 L 12/17/23 07:00 66 24 119/57 88 L 12/17/23 06:45 71 25 H 121/67 94 L 12/17/23 06:30 80 26 H 125/76 91 L 12/17/23 06:15 70 28 H 101/52 97 12/17/23 06:00 62 24 105/58 93 L 12/17/23 05:45 66 24 107/56 97 12/17/23 05:30 56 L 24 110/69 97 12/17/23 05:15 62 24 112/63 100 12/17/23 05:00 59 L 24 105/58 96 12/17/23 04:45 58 L 24 107/63 95 12/17/23 04:30 60 24 139/78 96 12/17/23 04:15 63 30 H 107/59 98 12/17/23 04:14 60 12/17/23 04:11 77 12/17/23 04:00 99.3 F 62 24 122/64 95 60 12/17/23 03:45 65 24 88/78 97 12/17/23 03:30 64 15 111/66 97 12/17/23 03:15 56 L 24 104/54 95 12/17/23 03:00 67 24 100/50 95 12/17/23 02:45 70 24 104/57 95 12/17/23 02:30 70 24 112/59 87 L 12/17/23 02:15 68 24 111/61 91 L 12/17/23 02:00 80 13 125/66 88 L 12/17/23 01:45 73 24 94/55 94 L 12/17/23 01:30 73 24 103/56 12/17/23 01:15 63 24 98/57 93 L 12/17/23 01:00 64 24 109/62 94 L 12/17/23 00:53 61 12/17/23 00:45 61 24 102/57 97 12/17/23 00:39 60 12/17/23 00:33 57 L 12/17/23 00:30 56 L 24 99/57 96 12/17/23 00:15 57 L 24 100/56 95 12/17/23 00:00 98.9 F 58 L 24 101/55 94 L 60 12/16/23 23:45 62 24 103/54 92 L 12/16/23 23:30 61 24 108/60 93 L 12/16/23 23:15 63 24 113/65 94 L 12/16/23 23:14 62 24 113/65 94 L 12/16/23 23:00 63 24 101/57 89 L 12/16/23 22:45 61 24 105/61 88 L 12/16/23 22:30 57 L 24 104/58 12/16/23 22:15 58 L 24 107/59 95 12/16/23 22:00 59 L 24 106/59 93 L 12/16/23 21:45 59 L 24 110/56 95 12/16/23 21:30 64 24 122/65 94 L 12/16/23 21:15 71 26 H 113/64 97 12/16/23 21:00 64 24 110/60 95 12/16/23 20:45 64 24 115/62 92 L 12/16/23 20:36 66 12/16/23 20:30 64 24 121/68 96 12/16/23 20:20 65 60 12/16/23 20:15 72 24 109/62 94 L 12/16/23 20:00 99.3 F 68 24 108/60 96 60 12/16/23 19:45 68 24 107/57 94 L 12/16/23 19:30 64 24 106/59 93 L 12/16/23 19:15 65 24 112/56 94 L 12/16/23 19:07 60 12/16/23 19:00 66 24 100/57 93 L 12/16/23 18:45 66 24 102/55 93 L 12/16/23 18:30 69 24 107/60 92 L 12/16/23 18:15 68 24 106/56 91 L 12/16/23 18:00 73 24 116/59 92 L 12/16/23 17:45 73 24 123/66 97 12/16/23 17:30 73 24 104/53 96 12/16/23 17:15 69 24 120/59 94 L 12/16/23 17:00 74 25 H 129/69 96 12/16/23 16:45 80 24 123/65 96 12/16/23 16:43 75 24 12/16/23 16:35 74 27 H 12/16/23 16:32 60 12/16/23 16:30 70 25 H 109/60 96 12/16/23 16:15 66 24 126/69 96 12/16/23 16:00 98.3 F 64 24 96/49 97 60 Intake and Output 12/17/23 12/17/23 12/17/23 06:59 14:59 22:59 Intake Total 2806.376 1087 Output Total 1125 575 Balance 367.392 945 Intake: IV 1220 1120 Invasive Line 3 20 20 Piperacillin-Tazobactam 3 100 .375 gm In Sodium Chloride 0.9% 100 ml @ 25 mls/hr IVPB Q8HR [facility] Rx# :[id number] Sodium Chloride 0.9% 1, 600 600 000 ml @ 75 mls/hr IV . [id number] [facility] Rx#:[id number] Vancomycin 1,500 mg In 500 500 Sodium Chloride 0.9% 500 ml 500 ml @ 167 mls/hr IVPB Q12H [facility] Rx#: [id number] Intake, IV Titration 272.392 400 Amount Magnesium Sulfate-D5w Pmx 200 1 gm In Dextrose/Water 1 100ml.bag @ 100 mls/hr IVPB Q1H [facility] Rx#: [id number] Piperacillin-Tazobactam 3 100 .375 gm In Sodium Chloride 0.9% 100 ml @ 25 mls/hr IVPB Q8HR [facility] Rx# :[id number] propofoL 1,000 mg In 272.392 100 Empty Bag 1 bag @ 15 MCG/ KG/MIN 8.165 mls/hr IV . [id number] [facility] Rx#:[id number] Output: Urine 675 575 Stool 450 Other: Voiding Method Indwelling Catheter Indwelling Catheter Weight 98 kg Results 12/17/23 06:23 12/17/23 06:23 Lipids 12/16/23 Range/Units 12:36 Triglycerides 278.00 H (0.00-149.00) mg/dL CBC 12/17/23 Range/Units 06:23 WBC 5.6 (3.8-10.6) k/uL RBC 4.44 (4.30-5.90) m/uL Hgb 11.9 L (13.0-17.5) gm/dL Hct 40.7 (39.0-53.0) % Plt Count 166 (150-450) k/uL Comprehensive Metabolic Panel 12/17/23 Range/Units 06:23 Sodium 137 (137-145) mmol/L Potassium 3.5 (3.5-5.1) mmol/L Chloride 112 H (98-107) mmol/L Carbon Dioxide 21 L (22-30) mmol/L BUN 4 L (9-20) mg/dL Creatinine 0.37 L (0.66-1.25) mg/dL Glucose 120 H (74-99) mg/dL Calcium 7.9 L (8.4-10.2) mg/dL Current Medications Generic Name Dose Route Start Last Admin Trade Name Freq PRN Reason Stop Dose Admin Acetaminophen 325 mg 12/13/23 15:43 12/15/23 00:32 Acetaminophen Tab 325 Mg Tab PO 325 mg Q6HR PRN Administration Fever and/ or Pain Albuterol Sulfate 2.5 mg 12/13/23 09:44 12/15/23 20:31 Albuterol Nebulized 2.5 Mg/3 Ml INHALATION 2.5 mg RT-QID PRN Administration Cough Albuterol/Ipratropium 3 ml 12/16/23 12:00 12/17/23 11:24 Ipratropium-Albuterol 3 Ml Neb INHALATION 3 ml RT-Q4H ANNIE Administration Chlorhexidine Gluconate 15 ml 12/14/23 21:00 12/17/23 07:48 Chlorhexidine Gluconate 15 Ml Cup MUCOUS MEM 15 ml BID ANNIE Administration Dextrose/Water 25 ml 12/16/23 06:22 Dextrose 50% Syringe 50 Ml IVP PER PROTOCOL PRN Hypoglycemia Protocol Dextrose/Water 50 ml 12/16/23 06:22 Dextrose 50% Syringe 50 Ml IVP PER PROTOCOL PRN Hypoglycemia Protocol Enoxaparin Sodium 80 mg 12/13/23 21:00 12/17/23 07:49 Enoxaparin 80 Mg/0.8 Ml Syringe SQ 80 mg BID@0900,2100 [facility]IE Administration Ergocalciferol 1,250 mcg 12/16/23 09:00 12/16/23 08:18 Ergocalciferol 1,250 Mcg (50,000 Iu) Capsule PO Not Given MOTH ANNIE Ferrous Sulfate 325 mg 12/14/23 09:00 12/17/23 07:50 Ferrous Sulfate 325 Mg Tab PO Not Given DAILY@0900 [facility] Hydromorphone HCl 1 mg 12/15/23 09:35 12/17/23 14:44 Hydromorphone 1 Mg/Ml 1 Ml Syringe IVP 1 mg Q3HR PRN Administration Pain Piperacillin Sod/Tazobactam 100 mls @ 25 mls/hr 12/14/23 09:45 12/17/23 07:48 Sod 3.375 gm/ Sodium Chloride IVPB 25 mls/hr Q8HR ANNIE Administration Protocol Norepinephrine Bitartrate 4 mg 254 mls @ 10.369 mls/hr 12/14/23 12:30 12/17/23 04:10 / Sodium Chloride IV 0.09 mcg/kg/min .Q24H ANNIE 31.107 mls/hr Administration Protocol 0.03 MCG/KG/MIN Sodium Chloride 1,000 mls @ 75 mls/hr 12/14/23 12:15 12/17/23 06:50 Saline 0.9% IV 75 mls/hr .[id number] ANNIE Administration Propofol 1,000 mg/ IV Solution 100 mls @ 8.165 mls/hr 12/14/23 12:30 12/17/23 12:54 IV 70 mcg/kg/min .[id number] ANNIE 38.102 mls/hr Administration Protocol 15 MCG/KG/MIN Vancomycin HCl 1,500 mg/ 500 mls @ 167 mls/hr 12/15/23 00:00 12/17/23 12:51 Sodium Chloride IVPB 167 mls/hr Q12H [facility]IE Administration Parenteral Vitamin Supplement 1,041 mls @ 55 mls/hr 12/17/23 15:00 12/17/23 14:45 10 ml/ Zinc/Copper/Manganese/ IV 55 mls/hr Selenium 1 ml/ Parenteral .[id number] ANNIE Administration Electrolytes 20 ml/ Potassium Acetate 10 meq/ Sodium Phosphate 15 mmol/ Amino Acids /Dextrose Lorazepam 1 mg 12/17/23 06:32 Lorazepam 2 Mg/Ml Inj IV ONCE PRN Anxiety Metoprolol Tartrate 12.5 mg 12/13/23 21:00 12/17/23 07:48 Metoprolol Tartrate 12.5 Mg Tab PO 12.5 mg BID@0900,2100 ANNIE Administration Miscellaneous Information 1 each 12/16/23 06:05 Potassium Replacement Protocol 1 Each Misc MISCELLANE DAILY PRN Per Protocol Protocol Miscellaneous Information 1 each 12/16/23 06:09 Magnesium Replacement Protocol 1 Each Misc MISCELLANE DAILY PRN Per Protocol Protocol Naloxone HCl 0.2 mg 12/13/23 08:06 Naloxone 0.4 Mg/Ml 1 Ml Vial IV Q2M PRN Opioid Reversal Pantoprazole Sodium 40 mg 12/15/23 09:00 12/17/23 07:48 Pantoprazole 40 Mg/10 Ml Vial IVP 40 mg DAILY ANNIE Administration Trazodone HCl 50 mg 12/13/23 09:44 Trazodone Hcl 50 Mg Tab PO HS PRN sleep Intake and Output 12/17/23 12/17/23 12/17/23 06:59 14:59 22:59 Intake Total 9816.986 5215 Output Total 1125 575 Balance 367.392 945 Intake: IV 1220 1120 Invasive Line 3 20 20 Piperacillin-Tazobactam 3 100 .375 gm In Sodium Chloride 0.9% 100 ml @ 25 mls/hr IVPB Q8HR [facility] Rx# :[id number] Sodium Chloride 0.9% 1, 600 600 000 ml @ 75 mls/hr IV . [id number] [facility] Rx#:[id number] Vancomycin 1,500 mg In 500 500 Sodium Chloride 0.9% 500 ml 500 ml @ 167 mls/hr IVPB Q12H [facility] Rx#: [id number] Intake, IV Titration 272.392 400 Amount Magnesium Sulfate-D5w Pmx 200 1 gm In Dextrose/Water 1 100ml.bag @ 100 mls/hr IVPB Q1H [facility] Rx#: [id number] Piperacillin-Tazobactam 3 100 .375 gm In Sodium Chloride 0.9% 100 ml @ 25 mls/hr IVPB Q8HR [facility] Rx# :[id number] propofoL 1,000 mg In 272.392 100 Empty Bag 1 bag @ 15 MCG/ KG/MIN 8.165 mls/hr IV . [id number] [facility] Rx#:[id number] Output: Urine 675 575 Stool 450 Other: Voiding Method Indwelling Catheter Indwelling Catheter Weight 98 kg 12/17/23 06:23 12/17/23 06:23
[2023-12-18 07:12] LABS: Anisocytosis Slight; Basophils % (A) 1 %; Eosinophils # (A) 0.2 k/uL (0-0.7); Eosinophils % (A) 6 %; HCT 39.9 % (39.0-53.0); HGB 11.4 gm/dL (13.0-17.5); Hypochromasia Marked; Lymphocytes # (A) 1.1 k/uL (1.0-4.8); Lymphocytes % (A) 26 %; MCH 26.6 pg (25.0-35.0); MCHC 28.6 g/dL (31.0-37.0); MCV 93.1 fL (80.0-100.0); Mean Platelet Volume 9.2; Monocytes # (A) 0.2 k/uL (0-1.0); Monocytes % (A) 5 %; Neutrophils # (A) 2.5 k/uL (1.3-7.7); Neutrophils % (A) 61 %; Platelet Count 176 k/uL (150-450); Poikilocytosis Slight; RBC 4.29 m/uL (4.30-5.90); RDW 17.1 % (11.5-15.5); WBC 4.2 k/uL (3.8-10.6)
[2023-12-18 07:36] LABS: African American GFR (CKD) >90 (>60 ml/min/1.73 sqM); Anion Gap 4 mmol/L; Blood Urea Nitrogen 4 mg/dL (9-20); Calcium 7.9 mg/dL (8.4-10.2); Carbon Dioxide 24 mmol/L (22-30); Chloride 112 mmol/L (98-107); Glucose 118 mg/dL (74-99); Magnesium 1.8 mg/dL (1.6-2.3); Non-African American GFR(CKD) >90 (>60 ml/min/1.73 sqM); Phosphorus 2.5 mg/dL (2.5-4.5); Potassium 3.2 mmol/L (3.5-5.1); Sodium 140 mmol/L (137-145)
--- NOTE | 2023-12-18 07:59 | P.PN ---
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 Patient presented 12/12 secondary to respiratory distress, coughing and concern of aspiration. He was intubated and hypoxic and has been weaning on ventilator. Cultures growing out H. influenzae and bursa. Cardiology was consult at secondary bradycardia. Patient noted to be sinus bradycardia with heart rate 41 bpm at its lowest mostl y while he is intubated and sedated and patient somnolent. He denies any chest pain or pressure. He is on propofol. He has been receiving metoprolol 12.5 mg twice a day. 12/17 patient seen and examined. Remains intubated and sedated on propofol. His metoprolol was discontinued. Heart rate still remained in the 50s well asleep however when aroused or agitated we'll come up in the 60s. PHYSICAL EXAMINATION Vital signs reviewed. CONSTITUTIONAL: No apparent distress, intubated and sedated, lethargic HEENT: Head is normocephalic. Pupils are equal, round. Sclerae anicteric. Mucous membranes of the mouth are moist. No JVD. No carotid bruit. CHEST EXAMINATION: Lungs are clear to auscultation. No chest wall tenderness is noted on palpation or with deep breathing. HEART EXAMINATION: Regular rate and rhythm. S1, S2 heard. No murmurs, gallops or rub. ABDOMEN: Soft, nontender. Positive bowel sounds. EXTREMITIES: 2+ peripheral pulses, no lower extremity edema and no calf tenderness. NEUROLOGIC EXAMINATION: Patient is somnolent on ventilator ASSESSMENT Asymptomatic sinus bradycardia I clearly related to increased vagal tone, beta kedar, sedation History of SVT on metoprolol Acute on chronic respiratory failure related to aspiration plus or minus H influenza pneumonia Crohn's disease Ileostomy History of stroke History of lower extremity thrombus status post BKA PLAN Patient with asymptomatic sinus bradycardia. Likely exacerbated by increased vagal state and patient sleeping. We will hold his metoprolol for now however and restart if he has further episodes of SVT. continue with current supportive care. No further recommendations from cardiology standpoint. Please call with any questions. Objective - Vital Signs Vital signs: Vital Signs Temp 99.1 F 12/18/23 04:00 Pulse 56 L 12/18/23 07:00 Resp 24 12/18/23 07:00 BP 112/59 12/18/23 07:00 Pulse Ox 96 12/18/23 07:00 FiO2 50 12/18/23 04:09 Intake & Output 12/17/23 12/18/23 12/18/23 18:59 06:59 18:59 Intake Total 2122.920 1525.817 60.687 Output Total 1525 1260 75 Balance 597.920 265.817 -14.313 Weight 99.4 kg Intake: IV 1310 870 20 Invasive Line 3 30 30 Piperacillin-Tazobactam 3 100 100 .375 gm In Sodium Chloride 0.9% 100 ml @ 25 mls/hr IVPB Q8HR [facility] Rx# :[id number] Sodium Chloride 0.9% 1, 680 240 20 000 ml @ 20 mls/hr IV . Q24H [facility] Rx#:[id number] Vancomycin 1,500 mg In 500 500 Sodium Chloride 0.9% 500 ml 500 ml @ 167 mls/hr IVPB Q12H [facility] Rx#: [id number] Intake, IV Titration 812.920 655.817 40.687 Amount Magnesium Sulfate-D5w Pmx 200 1 gm In Dextrose/Water 1 100ml.bag @ 100 mls/hr IVPB Q1H [facility] Rx#: [id number] Norepinephrine 4 mg In 254 254 Sodium Chloride 0.9% 250 ml @ 0.03 MCG/KG/MIN 10. 369 mls/hr IV .Q24H [facility] Rx#:[id number] Piperacillin-Tazobactam 3 100 .375 gm In Sodium Chloride 0.9% 100 ml @ 25 mls/hr IVPB Q8HR [facility] Rx# :[id number] propofoL 1,000 mg In 258.920 401.817 40.687 Empty Bag 1 bag @ 15 MCG/ KG/MIN 8.165 mls/hr IV . [id number] [facility] Rx#:[id number] Output: Urine 1125 1260 75 Stool 400 Other: Voiding Method Indwelling Catheter Indwelling Catheter ABP, PAP, CO, CI - Last Documented Arterial Blood Pressure 51/48 - Labs CBC & Chem 7: 12/18/23 06:54 12/18/23 06:54 Labs: Abnormal Lab Results - Last 24 Hours (Table) 12/18/23 12/18/23 Range/Units 06:54 06:54 RBC 4.29 L (4.30-5.90) m/uL Hgb 11.4 L (13.0-17.5) gm/dL MCHC 28.6 L (31.0-37.0) g/dL RDW 17.1 H (11.5-15.5) % Potassium 3.2 L (3.5-5.1) mmol/L Chloride 112 H (98-107) mmol/L BUN 4 L (9-20) mg/dL Creatinine 0.29 L (0.66-1.25) mg/dL Glucose 118 H (74-99) mg/dL Calcium 7.9 L (8.4-10.2) mg/dL Microbiology - Last 24 Hours (Table) 12/16/23 12:36 Blood Culture - Preliminary Blood
--- NOTE | 2023-12-18 08:02 | XR ---
EXAMINATION TYPE: XR chest 1V portable DATE OF EXAM: 12/18/2023 COMPARISON: 12/17/2023 HISTORY: SOB, Follow Up FINDINGS: Indwelling tubes and catheters are unchanged. No change in bibasilar opacities. Stable appearance of the cardio-mediastinal structures at this time. Pleural effusion unchanged. IMPRESSION: 1. Stable portable chest. Clinical correlation and follow up until resolution is recommended. [facility], , 12/18/2023 7:59 AM
[2023-12-18] MEDS: MAGNESIUM SULFATE-D5W PMX 1 GM in DEXTROSE/WATER 1 100ML.BAG IVPB ONE (08:12)
[2023-12-18] MEDS: POTASSIUM BICARBONATE/CIT AC 20 MEQ TABLET.EFF NG-TUBE SCH (08:13)
--- NOTE | 2023-12-18 09:44 | P.PN ---
Subjective Progress Note Date: 12/17/23 This is a pleasant 48 years old male with past medical history of Crohn disease complicated with bowel perforation requiring ileostomy, also has 2 fistula in his anterior abdominal Wall, patient also has left upper chest portal to receive TPN, patient also able to take oral feeding. 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 He has history of respiratory failure requiring tracheostomy insertion with subsequent removal Patient lives at home with his 2 sons. Information were obtained with the help of his mother at bedside. Patient presents to the hospital at this time because of respiratory difficulty, he came to emergency room yesterday for the same reason and he was discharged home, he was noticed to have hypoxia with coughing but that is improved yesterday. At home he have recurrence of his symptoms so he decided to come to emergency room today. Patient somewhat drowsy and could not participate in history however has per mother he is drowsy because of lack of sleep and he is usually more awake. Patient denies chest pain, no abdominal pain, he has ileostomy bag in place with some loose stool, as per mother at bedside this is his normal consistency. He has external urinary catheter. Denies dysuria or urgency. Both legs looks weak, has right BKA, no swelling or cellulitis. Patient is afebrile, he was hypoxic 88% on room air. Slightly tachypneic around 20. He has unremarkable CBC, BMP, liver enzymes, troponin x 1 less than 0.012. proBNP is 21. Influenza A and type B, RSV, SARS (coronavirus) are undetected D-dimer is negative at 0.45 EKG showing sinus rhythm at [address]-T changes Chest x-ray showing low volume but no acute process per radiologist Venous pH is low normal at 7.3, bicarb is elevated 34 and pCO2 is elevated at 62. Patient received prednisone 40 mg and Zithromax prior to hospitalization. 12/13 Patient developed complete collapse of the right lung, which is apparent on the chest x-ray this morning and he is developing more hypoxia he was saturation 77 and 5 L, currently he is kept on BiPAP He has no fever Blood pressure stable 127/64 Patient started on Zosyn also he is on IV Solu-Medrol 40 mg twice daily He is on a Protonix and therapeutic dose of Lovenox Pro- Calcitonin is low at 0.16 pH is low with high pCO2. Patient is going to be transferred to the ICU 12/14 Patient currently remains in the ICU intubated and sedated, also he required a small dose of Levophed for blood pressure support He status post bronchoscopy second 1 today, about 100 milliliter of mucus secretions pulled out. He has evidence of tracheomalacia as well but patent trachea. Bronchoscopy procedure reviewed with pulmonary team He is currently covered with IV vancomycin and Zosyn Cultures are still pending Chest x-ray showing endotracheal tube in position, right lower lobe infiltrate for pneumonia He is also on therapeutic dose of Lovenox continued from home 12/15 Patient remains in the ICU intubated and sedated with pulmonary/critical care team following closely and help with vent management Currently he is also requiring pressors, Levophed at 0.09 mcg/kg/min He is on IV vancomycin and Zosyn S/p bronchoscopy yesterday Sputum culture is growing haemophilus influenzae He is on home dose of Lovenox for 80 mg twice daily He is on normal saline 75 L/h 12/17/2023 Patient is MICU on mechanical ventilator. Patient remains on norepinephrine and is sedated with propofol. On IV hydration with normal saline 75/h. Chest x-ray showed stable portable chest. Clinical correlation and follow-up on resolution is recommended. Laboratory data showed WBC 5.6 hemoglobin 11.9 and platelets 166 sodium 137 potassium 3.5 chloride 112 bicarb is 21 BUN 4 and creatinine 0.37 and blood sugar 120 and magnesium 1.6. TSH within normal limits. Patient is being continued on antibiotics in the form of Zosyn. Sputum culture showed haemophilus influenza. Current medications reviewed. Objective - Vital Signs Vital signs: Vital Signs Temp 98.2 F 12/17/23 08:00 Pulse 69 12/17/23 11:25 Resp 24 12/17/23 09:30 BP 109/62 12/17/23 09:30 Pulse Ox 95 12/17/23 09:30 FiO2 50 12/17/23 11:26 Intake & Output 12/16/23 12/17/23 12/17/23 18:59 06:59 18:59 Intake Total 2099.712 1818.290 610 Output Total 1055 1485 410 Balance 1044.712 333.290 200 Weight 96.6 kg 98 kg Intake: IV 1335 1455 310 Invasive Line 3 10 30 10 Piperacillin-Tazobactam 3 100 100 .375 gm In Sodium Chloride 0.9% 100 ml @ 25 mls/hr IVPB Q8HR ANNIE Rx# :[id number] Potassium Chloride 20 meq 500 In Water For Injection 1 100ml.bag @ 50 mls/hr IVPB Q2H ANNIE Rx#: [id number] Sodium Chloride 0.9% 1, 225 825 300 000 ml @ 75 mls/hr IV . [id number] ANNIE Rx#:[id number] Vancomycin 1,500 mg In 500 500 Sodium Chloride 0.9% 500 ml 500 ml @ 167 mls/hr IVPB Q12H ANNIE Rx#: [id number] Intake, IV Titration 764.712 363.290 300 Amount Magnesium Sulfate-D5w Pmx 200 1 gm In Dextrose/Water 1 100ml.bag @ 100 mls/hr IVPB Q1H ANNIE Rx#: [id number] Norepinephrine 4 mg In 485.229 Sodium Chloride 0.9% 250 ml @ 0.03 MCG/KG/MIN 10. 369 mls/hr IV .Q24H ANNIE Rx#:[id number] Piperacillin-Tazobactam 3 100 .375 gm In Sodium Chloride 0.9% 100 ml @ 25 mls/hr IVPB Q8HR ANNIE Rx# :[id number] propofoL 1,000 mg In 279.483 363.290 Empty Bag 1 bag @ 15 MCG/ KG/MIN 8.165 mls/hr IV . [id number] ANNIE Rx#:[id number] Output: Urine 655 1035 410 Stool 400 450 Other: Voiding Method Indwelling Catheter Indwelling Catheter Indwelling Catheter ABP, PAP, CO, CI - Last Documented Arterial Blood Pressure 51/48 - Exam - Exam -GENERAL: The patient is intubated and sedated HEENT: Pupils are round and equally reacting to light. EOMI. No scleral icterus. No conjunctival pallor. Normocephalic, atraumatic. No pharyngeal erythema. No thyromegaly. CARDIOVASCULAR: S1 and S2 present. No murmurs, rubs, or gallops. PULMONARY: Decreased breath sounds on the right side, no wheezing , no crackles. ABDOMEN: Soft, nontender, nondistended, normoactive bowel sounds. No palpable organomegaly. Ostomy bag in place. MUSCULOSKELETAL: No joint swelling or deformity. Right BKA EXTREMITIES: No cyanosis, clubbing, left lower extremity edema and scrotal edema. NEUROLOGICAL: Gross neurological examination did not reveal any focal deficits. SKIN: No rashes. no petechiae. - Labs CBC & Chem 7: 12/19/23 04:53 12/19/23 04:53 Labs: Abnormal Lab Results - Last 24 Hours (Table) 12/16/23 12/17/23 12/17/23 Range/Units 12:36 06:23 06:23 Hgb 11.9 L (13.0-17.5) gm/dL MCHC 29.3 L (31.0-37.0) g/dL RDW 17.4 H (11.5-15.5) % Chloride 112 H (98-107) mmol/L Carbon Dioxide 21 L (22-30) mmol/L BUN 4 L (9-20) mg/dL Creatinine 0.37 L (0.66-1.25) mg/dL Glucose 120 H (74-99) mg/dL Calcium 7.9 L (8.4-10.2) mg/dL Ionized Calcium Nita 4.4 L (4.5-5.3) mg/dL Phosphorus 2.3 L (2.5-4.5) mg/dL Triglycerides 278.00 H (0.00-149.00) mg/dL Microbiology - Last 24 Hours (Table) 12/14/23 19:10 Nasal Screen MRSA/MSSA - Final Nasal Swab Methicillin resist S. aureus 12/14/23 11:45 Gram Stain - Final Sputum Sputum Culture - Final Haemophilus influenzae 12/13/23 20:40 Gram Stain - Final Sputum Sputum Culture - Final Haemophilus influenzae Assessment and Plan Assessment: Right lower lobe pneumonia, complicated by right lung collapse secondary to mucous plug status post bronchoscopy on 12/13 and 12/14. Sputum culture showed haemophilus influenza Septic shock secondary to above Acute hypoxic hypercapnic respiratory failure. Currently on mechanical ventilator. 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 Continue with mechanical ventilation Patient started on Zosyn and IV vancomycin Sputum cultures growing Haemophilus influenzae pending final results Continue with normal saline Continue with oxygen therapy and bronchodilator Continue with pressors Levophed Labs and medication were reviewed. Monitor labs and vitals. DVT and GI prophylaxis. Further recommendations as per clinical course of the patient DVT prophylaxis: Subcutaneous Lovenox 80 mg twice daily home dose GI Prophylaxis: Pepcid PT/OT: Pending Prognosis is guarded Time with Patient: Greater than 30
[2023-12-18] MEDS: MVI, ADULT NO.4 WITH VIT K 10 ML, TRACE (CONC-1ML/DOSE) 1 ML, PARENTERAL ELECTROLYTES 2... IV SCH (09:51)
[2023-12-18] MEDS: VANCOMYCIN 1,500 MG in SODIUM CHLORIDE 0.9% 500 ML 500 ML IVPB SCH (10:18)
[2023-12-18] MEDS: DEXMEDETOMIDINE/0.9% NACL(PMX) 400 MCG in EMPTY BAG 1 BAG IV SCH (11:09)
[2023-12-18] MEDS: POTASSIUM CHLORIDE 20 MEQ in WATER FOR INJECTION 1 100ML.BAG IVPB SCH ×2 (13:07→19:39)
[2023-12-18 13:09] LABS: ABG Base Excess 2.1 mmol/L; ABG HCO3 28 mmol/L (21-25); ABG Oxygen Saturation 94.9 % (94-97); ABG PCO2 47 mmHg (35-45); ABG PH 7.38 (7.35-7.45); ABG PO2 73 mmHg (83-108); ABG TCO2 29 mmol/L (19-24)
[2023-12-18 13:14] LABS: Allen Test Performed? no
--- NOTE | 2023-12-18 13:46 | OP ---
OPERATIVE REPORT DATE OF SERVICE : PROCEDURE PERFORMED: Placement of a left brachial arterial line. PREOPERATIVE DIAGNOSES: Acute hypoxic respiratory failure, pneumonia, and sepsis. POSTOPERATIVE DIAGNOSES: Acute hypoxic respiratory failure, pneumonia, and sepsis. ANESTHESIA USED: None deployed. DESCRIPTION OF PROCEDURE: Left brachial region was prepared in a sterile fashion and drapes were applied. The left brachial artery was palpated, easily cannulated, a guidewire was placed. A Cook's catheter was inserted over the guidewire, and the guidewire was removed. Good blood flow, good waveform noted, no complications. Line was secured using 3.0 silk sutures. MMODL / IJN: [id number] /
--- NOTE | 2023-12-18 16:07 | P.PN ---
Subjective Progress Note Date: 12/18/23 Principal diagnosis: Acute hypoxic respiratory failure secondary to right lung pneumonia secondary to haemophilus influenza. This is a 48-year-old male patient, brought into the hospital because of hypoxemia that was noted at home. The patient is not having any worsening short ness of breath. No reported aspiration. Occasional cough and congestion. No significant sputum production. The patient has a very extensive past medical history. He is known to have previous history of Crohn's disease that has been complicated by bowel perforation for which the patient required a bowel resection and currently has an ileostomy. 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 Note that his course was rather complicated following his previous bowel surgery. The patient had prolonged ventilator dependent respiratory failure requiring intubation mechanical ventilation and subsequent tracheostomy tube insertion. The patient also required hemodialysis for renal failure and renal replacement therapy. Ultimately, dialysis has been discontinued as the patient renal function improved and the tracheostomy tube was also eliminated. 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 His last evaluation here in our hospital was and February 2023 and at that time, the patient came into us with generalized weakness and fatigue and he was treated for sepsis/bacteremia and the treatment was successful. He continues to have a port in his left anterior chest area through which she receives TPN to supplement his oral intake. His current white cell count at 6.3 with a heme of 13 and a platelet count of 152. Sodium is 138 with a potassium level of 4.7, BUN 16 with a creatinine of 0.33. His UA is negative. Viral screen is also negative. The patient's slightly lethargic. He is arousable and awake. He is currently on 3 L of oxygen by nasal cannula with pulse ox 93%. His chest x-ray shows chronic elevation of the right hemidiaphragm without any acute cardiopulmonary process. The patient has been maintained on anticoagulation on outpatient basis and he is on Lovenox 80 mg subcu every 12 hours. On 12/14/2023, the patient is being seen for a follow-up in the emergency department. The patient was slightly hypoxic and was admitted to the hospital for further investigation. Overnight, the patient's condition became worse. The patient had a repeat chest x-ray earlier this morning and the patient was found to have complete collapse of the right lung with volume loss. There was complete widening out of the right lung. Following that, the patient became progressively hypoxic. The patient had a blood gas that showed a pH of 7.28 wit h a pCO2 of 78 and pO2 of 63 consistent with an acute on top of chronic respiratory acidosis with significant hypoxemia. Based on that, the patient was placed on a BiPAP at a pressure of 12 over 6 cm of water. Subsequently, the oxygenation improved and the patient got transferred to the ICU. Prior to next discussion with the patient. The patient was awake and alert and he seemed to be able to make his own medical decisions. I also contacted the family members and discussed with them the findings. The findings are consistent with mucous plugging and volume loss and a complete atelectasis of the right lung. The patient will obviously need to be supported with mechanical ventilator and s ubsequently have a bronchoscopy done regarding the right lung atelectasis. Patient was agreeable to that. I initially attempted to do the bronchoscope under conscious sedation. Give the patient a total of 4 mg of Versed. However, following that, I noted that the patient became progressively more hypoxic while being on high flow nasal oxygen and 100% nonrebreather facemask. Based on that, I intubated the patient. During the intubation process, I noted that it was difficult to push and the #8 orotracheal tube. 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 Nevertheless, I was able to pass the ET tube to the level of the tracheal stenosis. There was adequate ventilation at that point. I also inserted the bronchoscope and therapeutic airway suctioning was done with copious amount of thick purulent creamy respiratory secretions were identified in the right lower lobe and right mainstem bronchus. Total amount of volume aspirated from the right lung was in the order of 40 cc of purulent material. The patient was started on a combination of Zosyn and vancomycin. Currently is on propofol at 20 mcg/kg/min. Hemodynamically stable. Postprocedure chest x-ray done showed marked improvement in aeration of the right lung with marked reduction in the right lung atelectasis. There was interval development of a small left-sided pulmonary infiltrates. ET tube was seen in the upper tracheal area. Unable to push in the ET tube any further due to underlying tracheal stenosis. Hemodynamically stable at this point in time. Family has been informed of the changes. The white cell count from this morning is at 10 with a hemoglobin 15 and a platelet count of 155. Sodium is at 138, potassium is 4.4, BUN 21 with a creatinine of 0.36. Currently intubated on the mechanical ventilator. 12/15/2023, patient is being seen for a follow-up. The patient is arousable while being on propofol which is running at 50 mcg/kg/min. He is able to communicate even while being on sedation. As mentioned, he was intubated and placed on mechanical ventilator and copious amounts of mucous plugs was aspirated from the right lung yesterday. This was done following the bronchoscopy. Cultures are still pending for now although there is a preliminary sputum culture that showed haemophilus influenza. The patient is currently on a combination Zosyn and vancomycin. Meanwhile, the patient remains on mechanical ventilator assist-control mode with rate of 24, tidal volume of 400, FiO2 of 60% with a PEEP of 5. Chest x-ray still showing atelectatic changes right lung base. There is improved aeration of the right lung in general. The blood gas showed a pH of 7.5 with a pCO2 of 45 and a pO2 of 75. The blood work shows a white cell count of 13.4 with a hemoglobin of 12.4 and platelet count of 196. Sodium is 136, potassium is at 4.5, BUN is 18 with a creatinine of 0.35. The patient is also on IV fluids with normal saline at rate of 75 cc an hour. He is on norepinephrine at 0.04 mcg/kg/min. No other significant events overnight. Output from the abdominal fistulas and ileostomy has been noted. Later today on 12/16/23, patient remains in the ICU, intubated and mechanically ventilated. He is on assist-control rate of 24 tidal volume 400 FiO2 50% and PEEP of 5 ABG showed a pO2 of 82 pCO2 43 pH of 7.39. Patient remains on norepinephrine at 0.09 mcg/kg/min on propofol at 60 mcg/kg/min he is also on TPN. Patient is receiving vancomycin and Zosyn for what seems to be haemophilus influenza pneumonia, may consider stopping vancomycin and continue Zosyn. Blood cultures are pending, cultures from BAL are pending. Procalcitonin level is 0.85. Chest x-ray continues to show extensive disease involving the right lower lobe and left lower lobe. WBC count is 8 hemoglobin 11.9. Potassium is low at 2.6 being addressed as per protocol. Procalcitonin level is 0.85. C-reactive protein 13.2. According to the nurses patient was appropriate off sedation earlier this morning, but looking at his overall picture and his clinical findings on examination, patient is not ready for weaning and extubation. Patient was evaluated today on 12/17/2023, remains in the ICU, intubated and mechanically ventilated. Patient is on assist-control rate of 24 tidal volume 400 FiO2 60% PEEP increased to 8. ABG not done today, it is pending.WBC count is 5.6 hemoglobin 11.9. Basic metabolic profile is normal BUN is 4 creatinine 0.37 patient remains on vancomycin and Zosyn, procalcitonin level is 0.85 chest x-ray shows improvement in bibasilar opacities. Patient is very norepinephrine at 0.09 mcg/kg/min he is also on TPN at 30 cc/h propofol at 70 mcg/kg/min and IV fluids 75 cc/h 0.9 normal saline. His sputum came back positive for H. influenzae and MRSA. Patient again is on Zosyn and vancomycin. I am planning today to give the patient a weaning trial, and I did, few hours later I was notified that the patient's weaning parameters where very poor off propofol, hence I recommended that he goes back on propofol, and he is not ready for weaning. Patient evaluated today on 12/18/2023, patient remains in the ICU, intubated mechanically ventilated, patient was on norepinephrine until earlier today, he is to be on norepinephrine at 0.03 mcg/kg/min, remains on assist-control rate of 24 tidal volume 400 FiO2 50% and PEEP of 8. ABG today showed a pO2 of 73 pCO2 47 pH of 7.38. Hence no changes were made in his ventilator settings. I did establish a left brachial arterial line in this patient for hemodynamic dory toring and blood gases monitoring on a daily basis. Patient had difficult access, he does have a left subclavian central line and now he has a left brachial arterial line. Patient is on TPN he is also on propofol and he is on IV fluid at 20 cc/h. Remains on vancomycin and Zosyn for haemophilus influenza and MRSA in the sputum. Today I plan to give the patient a weaning trial again I would like to switch him to pressure support and CPAP, and I would like to see if the patient tolerates coming off propofol and use Precedex instead. Chest x- ray continues to show some right basilar airspace disease, improved compared to his initial chest x-ray on admission Objective - Vital Signs Vital signs: Vital Signs Temp 97.5 F L 12/18/23 12:00 Pulse 66 12/18/23 15:56 Resp 20 12/18/23 15:30 BP 98/56 12/18/23 11:45 Pulse Ox 97 12/18/23 15:58 FiO2 50 12/18/23 15:58 Intake & Output 12/17/23 12/18/23 12/18/23 18:59 06:59 18:59 Intake Total 2122.920 6773.103 2343.639 Output Total 1525 1260 1510 Balance 597.920 265.817 367.639 Weight 99.4 kg Intake: IV 6221 545 1585 Invasive Line 3 30 30 Magnesium Sulfate-D5w Pmx 100 1 gm In Dextrose/Water 1 100ml.bag @ 100 mls/hr IVPB ONCE ONE Rx#: [id number] Normal Saline Pressure 9 Bag Piperacillin-Tazobactam 3 100 100 100 .375 gm In Sodium Chloride 0.9% 100 ml @ 25 mls/hr IVPB Q8HR [facility] Rx# :[id number] Potassium Chloride 20 meq 200 In Water For Injection 1 100ml.bag @ 50 mls/hr IVPB Q2H [facility] Rx#: [id number] Sodium Chloride 0.9% 1, 680 240 180 000 ml @ 20 mls/hr IV . Q24H [facility] Rx#:[id number] Vancomycin 1,500 mg In 500 500 500 Sodium Chloride 0.9% 500 ml 500 ml @ 167 mls/hr IVPB Q12H [facility] Rx#: [id number] Intake, IV Titration 812.920 655.817 728.639 Amount Dexmedetomidine/0.9% NaCl 28.081 (Pmx) 400 mcg In Empty Bag 1 bag @ 0.2 MCG/KG/HR 4.97 mls/hr IV .Q20H8M [facility] Rx#:[id number] Magnesium Sulfate-D5w Pmx 200 1 gm In Dextrose/Water 1 100ml.bag @ 100 mls/hr IVPB Q1H [facility] Rx#: [id number] Mvi, Adult No.4 with Vit 110 K 10 ml Trace (Conc-1Ml/ Dose) 1 ml Parenteral Electrolytes 20 ml Potassium Acetate 10 meq Sodium Phosphate 15 mmol In Amino Acids 5 %/ Dextrose 20 % 1,000 ml @ 55 mls/hr IV .[id number] [facility] Rx#:[id number] Mvi, Adult No.4 with Vit 330 K 10 ml Trace (Conc-1Ml/ Dose) 1 ml Parenteral Electrolytes 20 ml Potassium Acetate 24 meq Magnesium Sulfate gm 0.5 gm Sodium Phosphate 15 mmol In Amino Acids 5 %/ Dextrose 20 % 1,000 ml @ 55 mls/hr IV .Q19H5M [facility] Rx#:[id number] Norepinephrine 4 mg In 254 254 83.357 Sodium Chloride 0.9% 250 ml @ 0.03 MCG/KG/MIN 10. 369 mls/hr IV .Q24H [facility] Rx#:[id number] Piperacillin-Tazobactam 3 100 .375 gm In Sodium Chloride 0.9% 100 ml @ 25 mls/hr IVPB Q8HR [facility] Rx# :[id number] propofoL 1,000 mg In 258.920 401.817 177.201 Empty Bag 1 bag @ 65 MCG/ KG/MIN 35.38 mls/hr IV . Q2H50M [facility] Rx#:[id number] Other 60 Output: Urine 1125 1260 910 Stool 400 600 Other: Voiding Method Indwelling Catheter Indwelling Catheter ABP, PAP, CO, CI - Last Documented Arterial Blood Pressure 91/46 - Exam General revealed a 48-year-old white male, intubated, mechanically ventilated, endotracheal tube and orogastric tube are intact. Head exam was generally normal. There was no scleral icterus or corneal arcus. M ucous membranes were moist. Neck supple. Full range of motion. No adenopathy thyromegaly or neck vein distention. Tracheostomy scar is noted over the anterior lower area of the neck. Cardiovascular: Normal S1-S2, no S3 gallop, no murmur. Lungs, diminished breath sound bilaterally no rhonchi no wheezes Abdomen distended, with a midline dressing from previous surgery. No bowel sounds noted. The abdomen was soft, non-tender, and without masses, organomegaly, . The patient has a midline abdominal incision which is dry clean and intact and it is well-healed. The patient has an ileostomy and the patient also has anterior abdominal wall fistula which is draining Extremities are intact. No cyanosis. Clubbing noted. The patient has a right jethb-uhk-ghyg amputation. 1+ edema Skin is without rash or lesion. Patient does have right below-knee amputation Neurologic: Patient is arousable follows simple instructions while on propofol. He does have some right-sided weakness/chronic related to previous CVA - Labs CBC & Chem 7: 12/18/23 06:54 12/18/23 11:55 Labs: Abnormal Lab Results - Last 24 Hours (Table) 12/18/23 12/18/23 12/18/23 Range/Units 06:54 06:54 11:55 RBC 4.29 L (4.30-5.90) m/uL Hgb 11.4 L (13.0-17.5) gm/dL MCHC 28.6 L (31.0-37.0) g/dL RDW 17.1 H (11.5-15.5) % ABG pCO2 (35-45) mmHg ABG pO2 (83-108) mmHg ABG HCO3 (21-25) mmol/L ABG Total CO2 (19-24) mmol/L Potassium 3.2 L 3.1 L (3.5-5.1) mmol/L Chloride 112 H (98-107) mmol/L BUN 4 L (9-20) mg/dL Creatinine 0.29 L (0.66-1.25) mg/dL Glucose 118 H (74-99) mg/dL Calcium 7.9 L (8.4-10.2) mg/dL 12/18/23 Range/Units 13:04 RBC (4.30-5.90) m/uL Hgb (13.0-17.5) gm/dL MCHC (31.0-37.0) g/dL RDW (11.5-15.5) % ABG pCO2 47 H (35-45) mmHg ABG pO2 73 L (83-108) mmHg ABG HCO3 28 H (21-25) mmol/L ABG Total CO2 29 H (19-24) mmol/L Potassium (3.5-5.1) mmol/L Chloride (98-107) mmol/L BUN (9-20) mg/dL Creatinine (0.66-1.25) mg/dL Glucose (74-99) mg/dL Calcium (8.4-10.2) mg/dL Microbiology - Last 24 Hours (Table) 12/16/23 12:36 Blood Culture - Preliminary Blood Assessment and Plan Assessment: Impression: Acute on chronic hypoxic respiratory failure requiring intubation mechanical ventilation. 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 from previous tracheostomy History of Crohn's disease Right hemidiaphragm elevation/chronic Acute sepsis and previous history of sepsis related to Serratia marcescens History of CVA with right-sided neurologic deficit History of DVT History of right below-knee amputation History of Crohn's disease and multiple abdominal surgeries with enterocutaneous fistulas and history of ileostomy History of cardiac arrest in 2021 Obesity Recommendation: Continue ventilatory support, will try pressure support mode of mechanical ventilation with a pressure support of 14 and CPAP, in the meantime patient will be transitioned from propofol to Precedex. Continue hemodynamic support, if needed patient was on norepinephrine which was discontinued earlier today. Continue nutritional support, patient is on TPN Continue antibiotics, vancomycin and Zosyn Continue GI and DVT prophylaxis patient is on Lovenox 80 mg subcu every 12 hours Continue wound care and ileostomy care Continue present ICU measures Patient remains critically ill, failed a trial of weaning yesterday, his weaning parameters were extremely poor Critical care time is over 30 minutes I still believe the patient may require tracheostomy if could not be weaned or extubated Time with Patient: Greater than 30
[2023-12-18] MEDS ORDERED: DILTIAZEM 125 MG in SODIUM CHLORIDE 0.9% 100 ML IV SCH (22:15)
[2023-12-18] MEDS ORDERED: MIDAZOLAM HCL 50 MG in SODIUM CHLORIDE 0.9% 40 ML IV SCH (22:15)
[2023-12-18] MEDS: DILTIAZEM DRIP BOLUS FROM BAG 1 MG SOLN IV ONE (23:25)
[2023-12-19 05:14] LABS: Anisocytosis Slight; Basophils % (A) 0 %; Eosinophils # (A) 0.2 k/uL (0-0.7); Eosinophils % (A) 5 %; HCT 36.8 % (39.0-53.0); HGB 10.9 gm/dL (13.0-17.5); Hypochromasia Marked; Lymphocytes # (A) 1.6 k/uL (1.0-4.8); Lymphocytes % (A) 42 %; MCH 26.7 pg (25.0-35.0); MCHC 29.6 g/dL (31.0-37.0); MCV 90.3 fL (80.0-100.0); Mean Platelet Volume 10.1; Monocytes # (A) 0.2 k/uL (0-1.0); Monocytes % (A) 4 %; Neutrophils # (A) 1.8 k/uL (1.3-7.7); Neutrophils % (A) 48 %; Platelet Count 159 k/uL (150-450); Poikilocytosis Slight; RBC 4.08 m/uL (4.30-5.90); RDW 17.2 % (11.5-15.5); WBC 3.8 k/uL (3.8-10.6)
[2023-12-19 05:28] LABS: ALT 13 U/L (4-49); AST 15 U/L (17-59); African American GFR (CKD) >90 (>60 ml/min/1.73 sqM); Albumin 2.3 g/dL (3.5-5.0); Alkaline Phosphatase 69 U/L (38-126); Anion Gap -1 mmol/L; Blood Urea Nitrogen 7 mg/dL (9-20); Calcium 7.9 mg/dL (8.4-10.2); Carbon Dioxide 26 mmol/L (22-30); Chloride 113 mmol/L (98-107); Glucose 100 mg/dL (74-99); Magnesium 1.8 mg/dL (1.6-2.3); Non-African American GFR(CKD) >90 (>60 ml/min/1.73 sqM); Phosphorus 2.3 mg/dL (2.5-4.5); Potassium 3.7 mmol/L (3.5-5.1); Sodium 138 mmol/L (137-145); Total Bilirubin 0.6 mg/dL (0.2-1.3); Total Protein 5.4 g/dL (6.3-8.2)
[2023-12-19 05:40] LABS: ABG Base Excess 2.7 mmol/L; ABG HCO3 28 mmol/L (21-25); ABG Oxygen Saturation 95.1 % (94-97); ABG PCO2 42 mmHg (35-45); ABG PH 7.42 (7.35-7.45); ABG PO2 70 mmHg (83-108); ABG TCO2 29 mmol/L (19-24); Allen Test Performed? Yes
--- NOTE | 2023-12-19 08:12 | XR ---
EXAMINATION TYPE: XR chest 1V portable DATE OF EXAM: 12/19/2023 COMPARISON: 12/18/2023 HISTORY: SOB, Follow Up FINDINGS: Indwelling tubes and catheters are unchanged. No change in bibasilar opacities. Increasing layering effusion right hemithorax. Stable appearance of the cardio-mediastinal structures at this time. Pleural effusion unchanged. IMPRESSION: 1. Stable portable chest. Clinical correlation and follow up until resolution is recommended. [facility], , 12/19/2023 8:09 AM
[2023-12-19] MEDS: FUROSEMIDE 10 MG/ML 4 ML VIAL IV STA (09:26)
[2023-12-19] MEDS: FERROUS SULFATE ORAL ELIXIR 300 MG/5 ML CUP PO SCH (09:28)
[2023-12-19] MEDS: SODIUM PHOSPHATE 15 MMOL in DEXTROSE 5% IN WATER 250 ML IVPB ONE (10:02)
[2023-12-19] MEDS ORDERED: IPRATROPIUM-ALBUTEROL 3 ML NEB INHALATION PRN (10:47)
[2023-12-19] MEDS: IPRATROPIUM-ALBUTEROL 3 ML NEB INHALATION SCH (11:24)
[2023-12-19] MEDS: FAT EMULSION 20% 250 ML in EMPTY BAG 1 BAG IV SCH (14:26)
--- NOTE | 2023-12-19 16:11 | P.PN ---
Subjective Progress Note Date: 12/19/23 Principal diagnosis: Acute hypoxic respiratory failure secondary to right lung pneumonia secondary to haemophilus influenza. This is a 48-year-old male patient, brought into the hospital because of hypoxemia that was noted at home. The patient is not having any worsening short ness of breath. No reported aspiration. Occasional cough and congestion. No significant sputum production. The patient has a very extensive past medical history. He is known to have previous history of Crohn's disease that has been complicated by bowel perforation for which the patient required a bowel resection and currently has an ileostomy. 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 Note that his course was rather complicated following his previous bowel surgery. The patient had prolonged ventilator dependent respiratory failure requiring intubation mechanical ventilation and subsequent tracheostomy tube insertion. The patient also required hemodialysis for renal failure and renal replacement therapy. Ultimately, dialysis has been discontinued as the patient renal function improved and the tracheostomy tube was also eliminated. 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 His last evaluation here in our hospital was and February 2023 and at that time, the patient came into us with generalized weakness and fatigue and he was treated for sepsis/bacteremia and the treatment was successful. He continues to have a port in his left anterior chest area through which she receives TPN to supplement his oral intake. His current white cell count at 6.3 with a heme of 13 and a platelet count of 152. Sodium is 138 with a potassium level of 4.7, BUN 16 with a creatinine of 0.33. His UA is negative. Viral screen is also negative. The patient's slightly lethargic. He is arousable and awake. He is currently on 3 L of oxygen by nasal cannula with pulse ox 93%. His chest x-ray shows chronic elevation of the right hemidiaphragm without any acute cardiopulmonary process. The patient has been maintained on anticoagulation on outpatient basis and he is on Lovenox 80 mg subcu every 12 hours. On 12/14/2023, the patient is being seen for a follow-up in the emergency department. The patient was slightly hypoxic and was admitted to the hospital for further investigation. Overnight, the patient's condition became worse. The patient had a repeat chest x-ray earlier this morning and the patient was found to have complete collapse of the right lung with volume loss. There was complete widening out of the right lung. Following that, the patient became progressively hypoxic. The patient had a blood gas that showed a pH of 7.28 wit h a pCO2 of 78 and pO2 of 63 consistent with an acute on top of chronic respiratory acidosis with significant hypoxemia. Based on that, the patient was placed on a BiPAP at a pressure of 12 over 6 cm of water. Subsequently, the oxygenation improved and the patient got transferred to the ICU. Prior to next discussion with the patient. The patient was awake and alert and he seemed to be able to make his own medical decisions. I also contacted the family members and discussed with them the findings. The findings are consistent with mucous plugging and volume loss and a complete atelectasis of the right lung. The patient will obviously need to be supported with mechanical ventilator and s ubsequently have a bronchoscopy done regarding the right lung atelectasis. Patient was agreeable to that. I initially attempted to do the bronchoscope under conscious sedation. Give the patient a total of 4 mg of Versed. However, following that, I noted that the patient became progressively more hypoxic while being on high flow nasal oxygen and 100% nonrebreather facemask. Based on that, I intubated the patient. During the intubation process, I noted that it was difficult to push and the #8 orotracheal tube. 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 Nevertheless, I was able to pass the ET tube to the level of the tracheal stenosis. There was adequate ventilation at that point. I also inserted the bronchoscope and therapeutic airway suctioning was done with copious amount of thick purulent creamy respiratory secretions were identified in the right lower lobe and right mainstem bronchus. Total amount of volume aspirated from the right lung was in the order of 40 cc of purulent material. The patient was started on a combination of Zosyn and vancomycin. Currently is on propofol at 20 mcg/kg/min. Hemodynamically stable. Postprocedure chest x-ray done showed marked improvement in aeration of the right lung with marked reduction in the right lung atelectasis. There was interval development of a small left-sided pulmonary infiltrates. ET tube was seen in the upper tracheal area. Unable to push in the ET tube any further due to underlying tracheal stenosis. Hemodynamically stable at this point in time. Family has been informed of the changes. The white cell count from this morning is at 10 with a hemoglobin 15 and a platelet count of 155. Sodium is at 138, potassium is 4.4, BUN 21 with a creatinine of 0.36. Currently intubated on the mechanical ventilator. 12/15/2023, patient is being seen for a follow-up. The patient is arousable while being on propofol which is running at 50 mcg/kg/min. He is able to communicate even while being on sedation. As mentioned, he was intubated and placed on mechanical ventilator and copious amounts of mucous plugs was aspirated from the right lung yesterday. This was done following the bronchoscopy. Cultures are still pending for now although there is a preliminary sputum culture that showed haemophilus influenza. The patient is currently on a combination Zosyn and vancomycin. Meanwhile, the patient remains on mechanical ventilator assist-control mode with rate of 24, tidal volume of 400, FiO2 of 60% with a PEEP of 5. Chest x-ray still showing atelectatic changes right lung base. There is improved aeration of the right lung in general. The blood gas showed a pH of 7.5 with a pCO2 of 45 and a pO2 of 75. The blood work shows a white cell count of 13.4 with a hemoglobin of 12.4 and platelet count of 196. Sodium is 136, potassium is at 4.5, BUN is 18 with a creatinine of 0.35. The patient is also on IV fluids with normal saline at rate of 75 cc an hour. He is on norepinephrine at 0.04 mcg/kg/min. No other significant events overnight. Output from the abdominal fistulas and ileostomy has been noted. Later today on 12/16/23, patient remains in the ICU, intubated and mechanically ventilated. He is on assist-control rate of 24 tidal volume 400 FiO2 50% and PEEP of 5 ABG showed a pO2 of 82 pCO2 43 pH of 7.39. Patient remains on norepinephrine at 0.09 mcg/kg/min on propofol at 60 mcg/kg/min he is also on TPN. Patient is receiving vancomycin and Zosyn for what seems to be haemophilus influenza pneumonia, may consider stopping vancomycin and continue Zosyn. Blood cultures are pending, cultures from BAL are pending. Procalcitonin level is 0.85. Chest x-ray continues to show extensive disease involving the right lower lobe and left lower lobe. WBC count is 8 hemoglobin 11.9. Potassium is low at 2.6 being addressed as per protocol. Procalcitonin level is 0.85. C-reactive protein 13.2. According to the nurses patient was appropriate off sedation earlier this morning, but looking at his overall picture and his clinical findings on examination, patient is not ready for weaning and extubation. Patient was evaluated today on 12/17/2023, remains in the ICU, intubated and mechanically ventilated. Patient is on assist-control rate of 24 tidal volume 400 FiO2 60% PEEP increased to 8. ABG not done today, it is pending.WBC count is 5.6 hemoglobin 11.9. Basic metabolic profile is normal BUN is 4 creatinine 0.37 patient remains on vancomycin and Zosyn, procalcitonin level is 0.85 chest x-ray shows improvement in bibasilar opacities. Patient is very norepinephrine at 0.09 mcg/kg/min he is also on TPN at 30 cc/h propofol at 70 mcg/kg/min and IV fluids 75 cc/h 0.9 normal saline. His sputum came back positive for H. influenzae and MRSA. Patient again is on Zosyn and vancomycin. I am planning today to give the patient a weaning trial, and I did, few hours later I was notified that the patient's weaning parameters where very poor off propofol, hence I recommended that he goes back on propofol, and he is not ready for weaning. Patient evaluated today on 12/18/2023, patient remains in the ICU, intubated mechanically ventilated, patient was on norepinephrine until earlier today, he is to be on norepinephrine at 0.03 mcg/kg/min, remains on assist-control rate of 24 tidal volume 400 FiO2 50% and PEEP of 8. ABG today showed a pO2 of 73 pCO2 47 pH of 7.38. Hence no changes were made in his ventilator settings. I did establish a left brachial arterial line in this patient for hemodynamic dory toring and blood gases monitoring on a daily basis. Patient had difficult access, he does have a left subclavian central line and now he has a left brachial arterial line. Patient is on TPN he is also on propofol and he is on IV fluid at 20 cc/h. Remains on vancomycin and Zosyn for haemophilus influenza and MRSA in the sputum. Today I plan to give the patient a weaning trial again I would like to switch him to pressure support and CPAP, and I would like to see if the patient tolerates coming off propofol and use Precedex instead. Chest x- ray continues to show some right basilar airspace disease, improved compared to his initial chest x-ray on admission Patient was evaluated today on 12/19/2023, is in the ICU, intubated and mechanically ventilated however the patient has been on pressure support of 12 and CPAP over the last 24 hours, seems to be tolerating that quite well. ABG this morning showed a pO2 of 70 pCO2 42 pH of 7.42 and this was on 50% with a pressure support of 12/6/50% pressures was cut down to 10 and he continued to have adequate tidal volumes patient seems to be very awake, he is on Precedex off propofol off other sedatives, remains on vancomycin and Zosyn his TPN is at 50 cc/h, reviewed his chest x-ray showed evidence of edema and the patient was given a dose of Lasix with excellent urine output after the Lasix given.WBC count is 3.8 hemoglobin is 10.9.Basic metabolic profile is normal BUN is 7 creatinine 0.33 Objective - Vital Signs Vital signs: Vital Signs Temp 98.1 F 12/19/23 08:00 Pulse 61 12/19/23 15:50 Resp 18 12/19/23 14:00 BP 86/41 12/19/23 14:00 Pulse Ox 89 L 12/19/23 14:00 FiO2 50 12/19/23 14:29 Intake & Output 12/18/23 12/19/23 12/19/23 18:59 06:59 18:59 Intake Total 2254.547 2479.096 974 Output Total 1725 1285 3900 Balance 434.737 3325.090 -9459 Weight 104.1 kg 104.1 kg Intake: IV 1258 986 724 Magnesium Sulfate-D5w Pmx 100 1 gm In Dextrose/Water 1 100ml.bag @ 100 mls/hr IVPB ONCE ONE Rx#: [id number] Mvi, Adult No.4 with Vit 110 440 K 10 ml Trace (Conc-1Ml/ Dose) 1 ml Parenteral Electrolytes 20 ml Potassium Acetate 24 meq Magnesium Sulfate gm 0.5 gm Sodium Phosphate 15 mmol In Amino Acids 5 %/ Dextrose 20 % 1,000 ml @ 90 mls/hr IV .[id number] [facility] Rx#:[id number] Normal Saline Pressure 18 36 24 Bag Piperacillin-Tazobactam 3 200 100 100 .375 gm In Sodium Chloride 0.9% 100 ml @ 25 mls/hr IVPB Q8HR [facility] Rx# :[id number] Potassium Chloride 20 meq 200 In Water For Injection 1 100ml.bag @ 50 mls/hr IVPB Q2H [facility] Rx#: [id number] Sodium Chloride 0.9% 1, 240 240 160 000 ml @ 20 mls/hr IV . Q24H [facility] Rx#:[id number] Vancomycin 1,500 mg In 500 500 Sodium Chloride 0.9% 500 ml 500 ml @ 167 mls/hr IVPB Q12H [facility] Rx#: [id number] Intake, IV Titration 489.073 1130.096 250 Amount Dexmedetomidine/0.9% NaCl 70.989 25.513 (Pmx) 400 mcg In Empty Bag 1 bag @ 0.2 MCG/KG/HR 4.97 mls/hr IV .Q20H8M [facility] Rx#:[id number] Mvi, Adult No.4 with Vit 110 K 10 ml Trace (Conc-1Ml/ Dose) 1 ml Parenteral Electrolytes 20 ml Potassium Acetate 10 meq Sodium Phosphate 15 mmol In Amino Acids 5 %/ Dextrose 20 % 1,000 ml @ 55 mls/hr IV .[id number] [facility] Rx#:[id number] Mvi, Adult No.4 with Vit 495 1467.583 K 10 ml Trace (Conc-1Ml/ Dose) 1 ml Parenteral Electrolytes 20 ml Potassium Acetate 24 meq Magnesium Sulfate gm 0.5 gm Sodium Phosphate 15 mmol In Amino Acids 5 %/ Dextrose 20 % 1,000 ml @ 90 mls/hr IV .[id number] [facility] Rx#:[id number] Norepinephrine 4 mg In 83.357 Sodium Chloride 0.9% 250 ml @ 0.03 MCG/KG/MIN 10. 369 mls/hr IV .Q24H [facility] Rx#:[id number] Sodium Phosphate 15 mmol 250 In Dextrose 5% in Water 250 ml @ 127.5 mls/hr IVPB ONCE ONE Rx#: [id number] propofoL 1,000 mg In 177.201 Empty Bag 1 bag @ 65 MCG/ KG/MIN 35.38 mls/hr IV . Q2H50M [facility] Rx#:[id number] Other 60 Output: Urine 0006 400 1514 Stool 600 700 Other: Voiding Method Indwelling Catheter Indwelling Catheter Indwelling Catheter ABP, PAP, CO, CI - Last Documented Arterial Blood Pressure 84/74 - Exam General revealed a 48-year-old white male, intubated, mechanically ventilated, endotracheal tube and orogastric tube are intact. Head exam was generally normal. There was no scleral icterus or corneal arcus. Mucous membranes were moist. Neck supple. Full range of motion. No adenopathy thyromegaly or neck vein distention. old tracheostomy scar is noted over the anterior lower area of the neck. Cardiovascular: Normal S1-S2, no S3 gallop, no murmur. Lungs, diminished breath sound bilaterally no rhonchi no wheezes Abdomen distended, with a midline dressing from previous surgery. No bowel sounds noted. The abdomen was soft, non-tender, and without masses, organomegaly, . The patient has a midline abdominal incision which is dry clean and intact and it is well-healed. The patient has an ileostomy and the patient also has anterior abdominal wall fistula which is draining Extremities are intact. No cyanosis. Clubbing noted. The patient has a right [id number] amputation. 1+ edema Skin is without rash or lesion. Patient does have right below-knee amputation Neurologic: Awake alert and oriented x 3 no gross focal deficit is except for chronic right-sided weakness - Labs CBC & Chem 7: 12/19/23 04:53 12/19/23 04:53 Labs: Abnormal Lab Results - Last 24 Hours (Table) 12/19/23 12/19/23 12/19/23 Range/Units 04:53 04:53 05:35 RBC 4.08 L (4.30-5.90) m/uL Hgb 10.9 L (13.0-17.5) gm/dL Hct 36.8 L (39.0-53.0) % MCHC 29.6 L (31.0-37.0) g/dL RDW 17.2 H (11.5-15.5) % ABG pO2 70 L (83-108) mmHg ABG HCO3 28 H (21-25) mmol/L ABG Total CO2 29 H (19-24) mmol/L Chloride 113 H (98-107) mmol/L BUN 7 L (9-20) mg/dL Creatinine 0.33 L (0.66-1.25) mg/dL Glucose 100 H (74-99) mg/dL Calcium 7.9 L (8.4-10.2) mg/dL Phosphorus 2.3 L (2.5-4.5) mg/dL AST 15 L (17-59) U/L Total Protein 5.4 L (6.3-8.2) g/dL Albumin 2.3 L (3.5-5.0) g/dL Microbiology - Last 24 Hours (Table) 12/16/23 12:36 Blood Culture - Preliminary Blood Assessment and Plan Assessment: Impression: Acute on chronic hypoxic respiratory failure requiring intubation mechanical ventilation. 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 from previous tracheostomy History of Crohn's disease Right hemidiaphragm elevation/chronic Acute sepsis and previous history of sepsis related to Serratia marcescens History of CVA with right-sided neurologic deficit History of DVT History of right below-knee amputation History of Crohn's disease and multiple abdominal surgeries with enterocutaneous fistulas and history of ileostomy History of cardiac arrest in 2021 Obesity Recommendation: Continue ventilatory support, however considering the patient has been tolerating pressure support and CPAP overnight, I believe the patient could be extubated and placed on BiPAP which I will do today while I am available in the ICU. Continue hemodynamic support, if needed Continue nutritional support, patient is on TPN Continue antibiotics, vancomycin and Zosyn Continue GI and DVT prophylaxis patient is on Lovenox 80 mg subcu every 12 hours Continue wound care and ileostomy care Patient remains critically ill, failed a trial of weaning yesterday, his weaning parameters were extremely poor Even if patient is extubated today, he will remain in the ICU as he seems to be marginal at best Critical care time is over 30 minutes Time with Patient: Greater than 30
[2023-12-19] MEDS: 1: MVI, ADULT NO.4 WITH VIT K 10 ML, TRACE (CONC-1ML/DOSE) 1 ML, PARENTERAL ELECTROLYTES IV SCH (20:07)
[2023-12-20] MEDS ORDERED: MVI, ADULT NO.4 WITH VIT K 10 ML, TRACE (CONC-1ML/DOSE) 1 ML, PARENTERAL ELECTROLYTES 2... IV SCH
[2023-12-20 03:52] LABS: African American GFR (CKD) >90 (>60 ml/min/1.73 sqM); Anion Gap 2 mmol/L; Blood Urea Nitrogen 12 mg/dL (9-20); Calcium 7.9 mg/dL (8.4-10.2); Carbon Dioxide 28 mmol/L (22-30); Chloride 107 mmol/L (98-107); Glucose 136 mg/dL (74-99); Magnesium 1.7 mg/dL (1.6-2.3); Non-African American GFR(CKD) >90 (>60 ml/min/1.73 sqM); Phosphorus 3.3 mg/dL (2.5-4.5); Potassium 3.7 mmol/L (3.5-5.1); Sodium 137 mmol/L (137-145)
[2023-12-20 03:53] LABS: Anisocytosis Slight; Basophils % (A) 0 %; Eosinophils # (A) 0.2 k/uL (0-0.7); Eosinophils % (A) 4 %; HCT 37.8 % (39.0-53.0); HGB 11.3 gm/dL (13.0-17.5); Hypochromasia Marked; Lymphocytes # (A) 1.2 k/uL (1.0-4.8); Lymphocytes % (A) 34 %; MCHC 29.9 g/dL (31.0-37.0); MCV 90.4 fL (80.0-100.0); Mean Platelet Volume 9.7; Monocytes # (A) 0.2 k/uL (0-1.0); Monocytes % (A) 5 %; Neutrophils # (A) 1.9 k/uL (1.3-7.7); Neutrophils % (A) 54 %; Platelet Count 161 k/uL (150-450); RBC 4.18 m/uL (4.30-5.90); RDW 16.9 % (11.5-15.5); WBC 3.5 k/uL (3.8-10.6)
[2023-12-20] MEDS ORDERED: BENZOCAINE SPRAY 1 CAN MUCOUS MEM PRN (05:17)
--- NOTE | 2023-12-20 08:36 | XR ---
EXAMINATION TYPE: XR chest 1V portable DATE OF EXAM: 12/20/2023 COMPARISON: 12/19/2023 HISTORY: Pneumonia TECHNIQUE: Single frontal view of the chest is obtained. FINDINGS: Right lower lobe infiltrate with associated parapneumonic effusion. Left medial basilar infiltrate an d/or atelectasis. Overall appearance is stable. Endotracheal and NG tubes have been removed. Central venous line unchanged in position. The cardiac silhouette size is within normal limits. The osseous structures are intact. IMPRESSION: 1. Stable chest. [facility], , 12/20/2023 8:33 AM
[2023-12-20] MEDS: VANCOMYCIN TROUGH DUE 1 EACH MISC MISCELLANE ONE (10:20)
[2023-12-20] MEDS: amLODIPine 5 MG TAB PO SCH (11:14)
[2023-12-20] MEDS: METOPROLOL TARTRATE 12.5 MG TAB PO SCH (11:14)
--- NOTE | 2023-12-20 12:14 | P.PN ---
Subjective Progress Note Date: 12/18/23 This is a pleasant 48 years old male with past medical history of Crohn disease complicated with bowel perforation requiring ileostomy, also has 2 fistula in his anterior abdominal Wall, patient also has left upper chest portal to receive TPN, patient also able to take oral feeding. 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 He has history of respiratory failure requiring tracheostomy insertion with subsequent removal Patient lives at home with his 2 sons. Information were obtained with the help of his mother at bedside. Patient presents to the hospital at this time because of respiratory difficulty, he came to emergency room yesterday for the same reason and he was discharged home, he was noticed to have hypoxia with coughing but that is improved yesterday. At home he have recurrence of his symptoms so he decided to come to emergency room today. Patient somewhat drowsy and could not participate in history however has per mother he is drowsy because of lack of sleep and he is usually more awake. Patient denies chest pain, no abdominal pain, he has ileostomy bag in place with some loose stool, as per mother at bedside this is his normal consistency. He has external urinary catheter. Denies dysuria or urgency. Both legs looks weak, has right BKA, no swelling or cellulitis. Patient is afebrile, he was hypoxic 88% on room air. Slightly tachypneic around 20. He has unremarkable CBC, BMP, liver enzymes, troponin x 1 less than 0.012. proBNP is 21. Influenza A and type B, RSV, SARS (coronavirus) are undetected D-dimer is negative at 0.45 EKG showing sinus rhythm at [address]-T changes Chest x-ray showing low volume but no acute process per radiologist Venous pH is low normal at 7.3, bicarb is elevated 34 and pCO2 is elevated at 62. Patient received prednisone 40 mg and Zithromax prior to hospitalization. 12/13 Patient developed complete collapse of the right lung, which is apparent on the chest x-ray this morning and he is developing more hypoxia he was saturation 77 and 5 L, currently he is kept on BiPAP He has no fever Blood pressure stable 127/64 Patient started on Zosyn also he is on IV Solu-Medrol 40 mg twice daily He is on a Protonix and therapeutic dose of Lovenox Pro- Calcitonin is low at 0.16 pH is low with high pCO2. Patient is going to be transferred to the ICU 12/14 Patient currently remains in the ICU intubated and sedated, also he required a small dose of Levophed for blood pressure support He status post bronchoscopy second 1 today, about 100 milliliter of mucus secretions pulled out. He has evidence of tracheomalacia as well but patent trachea. Bronchoscopy procedure reviewed with pulmonary team He is currently covered with IV vancomycin and Zosyn Cultures are still pending Chest x-ray showing endotracheal tube in position, right lower lobe infiltrate for pneumonia He is also on therapeutic dose of Lovenox continued from home 12/15 Patient remains in the ICU intubated and sedated with pulmonary/critical care team following closely and help with vent management Currently he is also requiring pressors, Levophed at 0.09 mcg/kg/min He is on IV vancomycin and Zosyn S/p bronchoscopy yesterday Sputum culture is growing haemophilus influenzae He is on home dose of Lovenox for 80 mg twice daily He is on normal saline 75 L/h 12/17/2023 Patient is MICU on mechanical ventilator. Patient remains on norepinephrine and is sedated with propofol. On IV hydration with normal saline 75/h. Chest x-ray showed stable portable chest. Clinical correlation and follow-up on resolution is recommended. Laboratory data showed WBC 5.6 hemoglobin 11.9 and platelets 166 sodium 137 potassium 3.5 chloride 112 bicarb is 21 BUN 4 and creatinine 0.37 and blood sugar 120 and magnesium 1.6. TSH within normal limits. Patient is being continued on antibiotics in the form of Zosyn. Sputum culture showed haemophilus influenza. 12/18/2023 Patient is in the MICU. Currently on mechanical ventilator. Patient is also on norepinephrine drip which is being slowed down. Chest x-ray today showed stable portable chest. Clinical correlation and follow-up until resolution is recommended. Patient is being continued on antibiotics and home Zosyn. Also on vancomycin. Laboratory data showed WBC 4.2 hemoglobin 11.4 and platelets 176 sodium 140 potassium 3.2 chloride 112 bicarb is 24 BUN 14 creatinine 0.29 and blood sugar 118 and magnesium 1.8. Current medications reviewed. Objective - Vital Signs Vital signs: Vital Signs Temp 98.0 F 12/18/23 08:00 Pulse 65 12/18/23 09:00 Resp 24 12/18/23 09:00 BP 120/68 12/18/23 09:00 Pulse Ox 96 12/18/23 09:00 FiO2 30 12/18/23 09:00 Intake & Output 12/17/23 12/18/23 12/18/23 18:59 06:59 18:59 Intake Total 2122.920 1525.817 470.687 Output Total 1525 1260 995 Balance 597.920 265.817 -524.313 Weight 99.4 kg Intake: IV 1310 870 260 Invasive Line 3 30 30 Magnesium Sulfate-D5w Pmx 100 1 gm In Dextrose/Water 1 100ml.bag @ 100 mls/hr IVPB ONCE ONE Rx#: [id number] Piperacillin-Tazobactam 3 100 100 100 .375 gm In Sodium Chloride 0.9% 100 ml @ 25 mls/hr IVPB Q8HR [facility] Rx# :[id number] Sodium Chloride 0.9% 1, 680 240 60 000 ml @ 20 mls/hr IV . Q24H [facility] Rx#:[id number] Vancomycin 1,500 mg In 500 500 Sodium Chloride 0.9% 500 ml 500 ml @ 167 mls/hr IVPB Q12H [facility] Rx#: [id number] Intake, IV Titration 812.920 655.817 150.687 Amount Magnesium Sulfate-D5w Pmx 200 1 gm In Dextrose/Water 1 100ml.bag @ 100 mls/hr IVPB Q1H [facility] Rx#: [id number] Mvi, Adult No.4 with Vit 110 K 10 ml Trace (Conc-1Ml/ Dose) 1 ml Parenteral Electrolytes 20 ml Potassium Acetate 10 meq Sodium Phosphate 15 mmol In Amino Acids 5 %/ Dextrose 20 % 1,000 ml @ 55 mls/hr IV .[id number] [facility] Rx#:[id number] Norepinephrine 4 mg In 254 254 Sodium Chloride 0.9% 250 ml @ 0.03 MCG/KG/MIN 10. 369 mls/hr IV .Q24H [facility] Rx#:[id number] Piperacillin-Tazobactam 3 100 .375 gm In Sodium Chloride 0.9% 100 ml @ 25 mls/hr IVPB Q8HR [facility] Rx# :[id number] propofoL 1,000 mg In 258.920 401.817 40.687 Empty Bag 1 bag @ 15 MCG/ KG/MIN 8.165 mls/hr IV . [id number] [facility] Rx#:[id number] Other 60 Output: Urine 1125 1260 395 Stool 400 600 Other: Voiding Method Indwelling Catheter Indwelling Catheter ABP, PAP, CO, CI - Last Documented Arterial Blood Pressure 51/48 - Exam - Exam -GENERAL: The patient is intubated and sedated HEENT: Pupils are round and equally reacting to light. EOMI. No scleral icterus. No conjunctival pallor. Normocephalic, atraumatic. No pharyngeal erythema. No thyromegaly. CARDIOVASCULAR: S1 and S2 present. No murmurs, rubs, or gallops. PULMONARY: Decreased breath sounds on the right side, no wheezing , no crackles. ABDOMEN: Soft, nontender, nondistended, normoactive bowel sounds. No palpable organomegaly. Ostomy bag in place. MUSCULOSKELETAL: No joint swelling or deformity. Right BKA EXTREMITIES: No cyanosis, clubbing, left lower extremity edema and scrotal edema. NEUROLOGICAL: Gross neurological examination did not reveal any focal deficits. SKIN: No rashes. no petechiae. - Labs CBC & Chem 7: 12/20/23 03:30 12/20/23 03:30 Labs: Abnormal Lab Results - Last 24 Hours (Table) 12/18/23 12/18/23 Range/Units 06:54 06:54 RBC 4.29 L (4.30-5.90) m/uL Hgb 11.4 L (13.0-17.5) gm/dL MCHC 28.6 L (31.0-37.0) g/dL RDW 17.1 H (11.5-15.5) % Potassium 3.2 L (3.5-5.1) mmol/L Chloride 112 H (98-107) mmol/L BUN 4 L (9-20) mg/dL Creatinine 0.29 L (0.66-1.25) mg/dL Glucose 118 H (74-99) mg/dL Calcium 7.9 L (8.4-10.2) mg/dL Microbiology - Last 24 Hours (Table) 12/16/23 12:36 Blood Culture - Preliminary Blood Assessment and Plan Assessment: Right lower lobe pneumonia, complicated by right lung collapse secondary to muc ous plug status post bronchoscopy on 12/13 and 12/14. Sputum culture showed haemophilus influenza Septic shock secondary to above Acute hypoxic hypercapnic respiratory failure. Currently on mechanical ventilator. 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 Continue with mechanical ventilation Patient started on Zosyn and IV vancomycin Sputum cultures growing Haemophilus influenzae Continue with pressors Levophed. Continue bronchodilators. Labs and medication were reviewed. Monitor labs and vitals. DVT and GI prophylaxis. DVT prophylaxis: Subcutaneous Lovenox 80 mg twice daily home dose GI Prophylaxis: Pepcid PT/OT: Pending Prognosis is guarded Time with Patient: Greater than 30
--- NOTE | 2023-12-20 12:17 | P.PN ---
Subjective Progress Note Date: 12/19/23 This is a pleasant 48 years old male with past medical history of Crohn disease complicated with bowel perforation requiring ileostomy, also has 2 fistula in his anterior abdominal Wall, patient also has left upper chest portal to receive TPN, patient also able to take oral feeding. 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 He has history of respiratory failure requiring tracheostomy insertion with subsequent removal Patient lives at home with his 2 sons. Information were obtained with the help of his mother at bedside. Patient presents to the hospital at this time because of respiratory difficulty, he came to emergency room yesterday for the same reason and he was discharged home, he was noticed to have hypoxia with coughing but that is improved yesterday. At home he have recurrence of his symptoms so he decided to come to emergency room today. Patient somewhat drowsy and could not participate in history however has per mother he is drowsy because of lack of sleep and he is usually more awake. Patient denies chest pain, no abdominal pain, he has ileostomy bag in place with some loose stool, as per mother at bedside this is his normal consistency. He has external urinary catheter. Denies dysuria or urgency. Both legs looks weak, has right BKA, no swelling or cellulitis. Patient is afebrile, he was hypoxic 88% on room air. Slightly tachypneic around 20. He has unremarkable CBC, BMP, liver enzymes, troponin x 1 less than 0.012. proBNP is 21. Influenza A and type B, RSV, SARS (coronavirus) are undetected D-dimer is negative at 0.45 EKG showing sinus rhythm at [address]-T changes Chest x-ray showing low volume but no acute process per radiologist Venous pH is low normal at 7.3, bicarb is elevated 34 and pCO2 is elevated at 62. Patient received prednisone 40 mg and Zithromax prior to hospitalization. 12/13 Patient developed complete collapse of the right lung, which is apparent on the chest x-ray this morning and he is developing more hypoxia he was saturation 77 and 5 L, currently he is kept on BiPAP He has no fever Blood pressure stable 127/64 Patient started on Zosyn also he is on IV Solu-Medrol 40 mg twice daily He is on a Protonix and therapeutic dose of Lovenox Pro- Calcitonin is low at 0.16 pH is low with high pCO2. Patient is going to be transferred to the ICU 12/14 Patient currently remains in the ICU intubated and sedated, also he required a small dose of Levophed for blood pressure support He status post bronchoscopy second 1 today, about 100 milliliter of mucus secretions pulled out. He has evidence of tracheomalacia as well but patent trachea. Bronchoscopy procedure reviewed with pulmonary team He is currently covered with IV vancomycin and Zosyn Cultures are still pending Chest x-ray showing endotracheal tube in position, right lower lobe infiltrate for pneumonia He is also on therapeutic dose of Lovenox continued from home 12/15 Patient remains in the ICU intubated and sedated with pulmonary/critical care team following closely and help with vent management Currently he is also requiring pressors, Levophed at 0.09 mcg/kg/min He is on IV vancomycin and Zosyn S/p bronchoscopy yesterday Sputum culture is growing haemophilus influenzae He is on home dose of Lovenox for 80 mg twice daily He is on normal saline 75 L/h 12/17/2023 Patient is MICU on mechanical ventilator. Patient remains on norepinephrine and is sedated with propofol. On IV hydration with normal saline 75/h. Chest x-ray showed stable portable chest. Clinical correlation and follow-up on resolution is recommended. Laboratory data showed WBC 5.6 hemoglobin 11.9 and platelets 166 sodium 137 potassium 3.5 chloride 112 bicarb is 21 BUN 4 and creatinine 0.37 and blood sugar 120 and magnesium 1.6. TSH within normal limits. Patient is being continued on antibiotics in the form of Zosyn. Sputum culture showed haemophilus influenza. 12/18/2023 Patient is in the MICU. Currently on mechanical ventilator. Patient is also on norepinephrine drip which is being slowed down. Chest x-ray today showed stable portable chest. Clinical correlation and follow-up until resolution is recommended. Patient is being continued on antibiotics and home Zosyn. Also on vancomycin. Laboratory data showed WBC 4.2 hemoglobin 11.4 and platelets 176 sodium 140 potassium 3.2 chloride 112 bicarb is 24 BUN 14 creatinine 0.29 and blood sugar 118 and magnesium 1.8. 12/19/2023 Patient is in the MICU currently on pressure support. Patient is otherwise awake alert and oriented. No complaints of chest pain or shortness of breath. No nausea or vomiting. Patient on TPN. Continued on antibiotics above vancomycin and Zosyn. Chest x-ray today showed stable portable chest. Clinical correlation and follow-up on resolution is recommended. Laboratory data showed WBC 3.8 hemoglobin 10.9 and platelets 159 sodium 138 potassium 3.7 chloride 113 bicarb is 26 BUN 7 creatinine 0.33 and blood sugar 100 and phosphorus 2.3 AST 15 ALT 13 alk phos 69 albumin 2.3 Current medications reviewed. Objective - Vital Signs Vital signs: Vital Signs Temp 98.1 F 12/19/23 08:00 Pulse 69 12/19/23 19:00 Resp 29 H 12/19/23 19:00 BP 86/41 12/19/23 14:00 Pulse Ox 95 12/19/23 19:00 FiO2 50 12/19/23 14:29 Intake & Output 12/19/23 12/19/23 12/20/23 06:59 18:59 06:59 Intake Total 2479.096 1399 Output Total 1285 5950 Balance 1194.096 -4551 Weight 104.1 kg 104.1 kg Intake: IV 986 1149 Mvi, Adult No.4 with Vit 110 750 K 10 ml Trace (Conc-1Ml/ Dose) 1 ml Parenteral Electrolytes 20 ml Potassium Acetate 24 meq Magnesium Sulfate gm 0.5 gm Sodium Phosphate 15 mmol In Amino Acids 5 %/ Dextrose 20 % 1,000 ml @ 90 mls/hr IV .[id number] [facility] Rx#:[id number] Normal Saline Pressure 36 39 Bag Piperacillin-Tazobactam 3 100 100 .375 gm In Sodium Chloride 0.9% 100 ml @ 25 mls/hr IVPB Q8HR [facility] Rx# :[id number] Sodium Chloride 0.9% 1, 240 260 000 ml @ 20 mls/hr IV . Q24H [facility] Rx#:[id number] Vancomycin 1,500 mg In 500 Sodium Chloride 0.9% 500 ml 500 ml @ 167 mls/hr IVPB Q12H [facility] Rx#: [id number] Intake, IV Titration 1493.096 250 Amount Dexmedetomidine/0.9% NaCl 25.513 (Pmx) 400 mcg In Empty Bag 1 bag @ 0.2 MCG/KG/HR 4.97 mls/hr IV .[id number] [facility] Rx#:[id number] Mvi, Adult No.4 with Vit 1467.583 K 10 ml Trace (Conc-1Ml/ Dose) 1 ml Parenteral Electrolytes 20 ml Potassium Acetate 24 meq Magnesium Sulfate gm 0.5 gm Sodium Phosphate 15 mmol In Amino Acids 5 %/ Dextrose 20 % 1,000 ml @ 90 mls/hr IV .[id number] [facility] Rx#:[id number] Sodium Phosphate 15 mmol 250 In Dextrose 5% in Water 250 ml @ 127.5 mls/hr IVPB ONCE ONE Rx#: [id number] Output: Urine 585 5600 Stool 700 350 Other: Voiding Method Indwelling Catheter Indwelling Catheter ABP, PAP, CO, CI - Last Documented Arterial Blood Pressure 115/68 - Exam - Exam -GENERAL: The patient is awake alert currently on BiPAP. HEENT: Pupils are round and equally reacting to light. EOMI. No scleral icterus. No conjunctival pallor. Normocephalic, atraumatic. No pharyngeal erythema. No thyromegaly. CARDIOVASCULAR: S1 and S2 present. No murmurs, rubs, or gallops. PULMONARY: Decreased breath sounds on the right side, no wheezing , no crackles. ABDOMEN: Soft, nontender, nondistended, normoactive bowel sounds. No palpable organomegaly. Ostomy bag in place. MUSCULOSKELETAL: No joint swelling or deformity. Right BKA EXTREMITIES: No cyanosis, clubbing, left lower extremity edema and scrotal edema. NEUROLOGICAL: Gross neurological examination did not reveal any focal deficits. SKIN: No rashes. no petechiae. - Labs CBC & Chem 7: 12/20/23 03:30 12/20/23 03:30 Labs: Abnormal Lab Results - Last 24 Hours (Table) 12/19/23 12/19/23 12/19/23 Range/Units 04:53 04:53 05:35 RBC 4.08 L (4.30-5.90) m/uL Hgb 10.9 L (13.0-17.5) gm/dL Hct 36.8 L (39.0-53.0) % MCHC 29.6 L (31.0-37.0) g/dL RDW 17.2 H (11.5-15.5) % ABG pO2 70 L (83-108) mmHg ABG HCO3 28 H (21-25) mmol/L ABG Total CO2 29 H (19-24) mmol/L Chloride 113 H (98-107) mmol/L BUN 7 L (9-20) mg/dL Creatinine 0.33 L (0.66-1.25) mg/dL Glucose 100 H (74-99) mg/dL Calcium 7.9 L (8.4-10.2) mg/dL Phosphorus 2.3 L (2.5-4.5) mg/dL AST 15 L (17-59) U/L Total Protein 5.4 L (6.3-8.2) g/dL Albumin 2.3 L (3.5-5.0) g/dL Microbiology - Last 24 Hours (Table) 12/16/23 12:36 Blood Culture - Preliminary Blood Assessment and Plan Assessment: Right lower lobe pneumonia, complicated by right lung collapse secondary to mucous plug status post bronchoscopy on 12/13 and 12/14. Sputum culture showed haemophilus influenza Septic shock secondary to above Acute hypoxic hypercapnic respiratory failure. Was on mechanical ventilator, changed to pressure support. 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 Currently on pressure support. Patient started on Zosyn and IV vancomycin Sputum cultures growing Haemophilus influenzae Off Levophed. Continue bronchodilators. Labs and medication were reviewed. Monitor labs and vitals. DVT and GI prophyla xis. DVT prophylaxis: Subcutaneous Lovenox 80 mg twice daily home dose GI Prophylaxis: Pepcid PT/OT: Pending Prognosis is guarded Time with Patient: Greater than 30
--- NOTE | 2023-12-20 13:45 | P.PN ---
Subjective Progress Note Date: 12/20/23 Principal diagnosis: Acute hypoxic respiratory failure secondary to right lung pneumonia secondary to haemophilus influenza. This is a 48-year-old male patient, brought into the hospital because of hypoxemia that was noted at home. The patient is not having any worsening short ness of breath. No reported aspiration. Occasional cough and congestion. No significant sputum production. The patient has a very extensive past medical history. He is known to have previous history of Crohn's disease that has been complicated by bowel perforation for which the patient required a bowel resection and currently has an ileostomy. 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 Note that his course was rather complicated following his previous bowel surgery. The patient had prolonged ventilator dependent respiratory failure requiring intubation mechanical ventilation and subsequent tracheostomy tube insertion. The patient also required hemodialysis for renal failure and renal replacement therapy. Ultimately, dialysis has been discontinued as the patient renal function improved and the tracheostomy tube was also eliminated. 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 His last evaluation here in our hospital was and February 2023 and at that time, the patient came into us with generalized weakness and fatigue and he was treated for sepsis/bacteremia and the treatment was successful. He continues to have a port in his left anterior chest area through which she receives TPN to supplement his oral intake. His current white cell count at 6.3 with a heme of 13 and a platelet count of 152. Sodium is 138 with a potassium level of 4.7, BUN 16 with a creatinine of 0.33. His UA is negative. Viral screen is also negative. The patient's slightly lethargic. He is arousable and awake. He is currently on 3 L of oxygen by nasal cannula with pulse ox 93%. His chest x-ray shows chronic elevation of the right hemidiaphragm without any acute cardiopulmonary process. The patient has been maintained on anticoagulation on outpatient basis and he is on Lovenox 80 mg subcu every 12 hours. On 12/14/2023, the patient is being seen for a follow-up in the emergency department. The patient was slightly hypoxic and was admitted to the hospital for further investigation. Overnight, the patient's condition became worse. The patient had a repeat chest x-ray earlier this morning and the patient was found to have complete collapse of the right lung with volume loss. There was complete widening out of the right lung. Following that, the patient became progressively hypoxic. The patient had a blood gas that showed a pH of 7.28 wit h a pCO2 of 78 and pO2 of 63 consistent with an acute on top of chronic respiratory acidosis with significant hypoxemia. Based on that, the patient was placed on a BiPAP at a pressure of 12 over 6 cm of water. Subsequently, the oxygenation improved and the patient got transferred to the ICU. Prior to next discussion with the patient. The patient was awake and alert and he seemed to be able to make his own medical decisions. I also contacted the family members and discussed with them the findings. The findings are consistent with mucous plugging and volume loss and a complete atelectasis of the right lung. The patient will obviously need to be supported with mechanical ventilator and s ubsequently have a bronchoscopy done regarding the right lung atelectasis. Patient was agreeable to that. I initially attempted to do the bronchoscope under conscious sedation. Give the patient a total of 4 mg of Versed. However, following that, I noted that the patient became progressively more hypoxic while being on high flow nasal oxygen and 100% nonrebreather facemask. Based on that, I intubated the patient. During the intubation process, I noted that it was difficult to push and the #8 orotracheal tube. 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 Nevertheless, I was able to pass the ET tube to the level of the tracheal stenosis. There was adequate ventilation at that point. I also inserted the bronchoscope and therapeutic airway suctioning was done with copious amount of thick purulent creamy respiratory secretions were identified in the right lower lobe and right mainstem bronchus. Total amount of volume aspirated from the right lung was in the order of 40 cc of purulent material. The patient was started on a combination of Zosyn and vancomycin. Currently is on propofol at 20 mcg/kg/min. Hemodynamically stable. Postprocedure chest x-ray done showed marked improvement in aeration of the right lung with marked reduction in the right lung atelectasis. There was interval development of a small left-sided pulmonary infiltrates. ET tube was seen in the upper tracheal area. Unable to push in the ET tube any further due to underlying tracheal stenosis. Hemodynamically stable at this point in time. Family has been informed of the changes. The white cell count from this morning is at 10 with a hemoglobin 15 and a platelet count of 155. Sodium is at 138, potassium is 4.4, BUN 21 with a creatinine of 0.36. Currently intubated on the mechanical ventilator. 12/15/2023, patient is being seen for a follow-up. The patient is arousable while being on propofol which is running at 50 mcg/kg/min. He is able to communicate even while being on sedation. As mentioned, he was intubated and placed on mechanical ventilator and copious amounts of mucous plugs was aspirated from the right lung yesterday. This was done following the bronchoscopy. Cultures are still pending for now although there is a preliminary sputum culture that showed haemophilus influenza. The patient is currently on a combination Zosyn and vancomycin. Meanwhile, the patient remains on mechanical ventilator assist-control mode with rate of 24, tidal volume of 400, FiO2 of 60% with a PEEP of 5. Chest x-ray still showing atelectatic changes right lung base. There is improved aeration of the right lung in general. The blood gas showed a pH of 7.5 with a pCO2 of 45 and a pO2 of 75. The blood work shows a white cell count of 13.4 with a hemoglobin of 12.4 and platelet count of 196. Sodium is 136, potassium is at 4.5, BUN is 18 with a creatinine of 0.35. The patient is also on IV fluids with normal saline at rate of 75 cc an hour. He is on norepinephrine at 0.04 mcg/kg/min. No other significant events overnight. Output from the abdominal fistulas and ileostomy has been noted. Later today on 12/16/23, patient remains in the ICU, intubated and mechanically ventilated. He is on assist-control rate of 24 tidal volume 400 FiO2 50% and PEEP of 5 ABG showed a pO2 of 82 pCO2 43 pH of 7.39. Patient remains on norepinephrine at 0.09 mcg/kg/min on propofol at 60 mcg/kg/min he is also on TPN. Patient is receiving vancomycin and Zosyn for what seems to be haemophilus influenza pneumonia, may consider stopping vancomycin and continue Zosyn. Blood cultures are pending, cultures from BAL are pending. Procalcitonin level is 0.85. Chest x-ray continues to show extensive disease involving the right lower lobe and left lower lobe. WBC count is 8 hemoglobin 11.9. Potassium is low at 2.6 being addressed as per protocol. Procalcitonin level is 0.85. C-reactive protein 13.2. According to the nurses patient was appropriate off sedation earlier this morning, but looking at his overall picture and his clinical findings on examination, patient is not ready for weaning and extubation. Patient was evaluated today on 12/17/2023, remains in the ICU, intubated and mechanically ventilated. Patient is on assist-control rate of 24 tidal volume 400 FiO2 60% PEEP increased to 8. ABG not done today, it is pending.WBC count is 5.6 hemoglobin 11.9. Basic metabolic profile is normal BUN is 4 creatinine 0.37 patient remains on vancomycin and Zosyn, procalcitonin level is 0.85 chest x-ray shows improvement in bibasilar opacities. Patient is very norepinephrine at 0.09 mcg/kg/min he is also on TPN at 30 cc/h propofol at 70 mcg/kg/min and IV fluids 75 cc/h 0.9 normal saline. His sputum came back positive for H. influenzae and MRSA. Patient again is on Zosyn and vancomycin. I am planning today to give the patient a weaning trial, and I did, few hours later I was notified that the patient's weaning parameters where very poor off propofol, hence I recommended that he goes back on propofol, and he is not ready for weaning. Patient evaluated today on 12/18/2023, patient remains in the ICU, intubated mechanically ventilated, patient was on norepinephrine until earlier today, he is to be on norepinephrine at 0.03 mcg/kg/min, remains on assist-control rate of 24 tidal volume 400 FiO2 50% and PEEP of 8. ABG today showed a pO2 of 73 pCO2 47 pH of 7.38. Hence no changes were made in his ventilator settings. I did establish a left brachial arterial line in this patient for hemodynamic dory toring and blood gases monitoring on a daily basis. Patient had difficult access, he does have a left subclavian central line and now he has a left brachial arterial line. Patient is on TPN he is also on propofol and he is on IV fluid at 20 cc/h. Remains on vancomycin and Zosyn for haemophilus influenza and MRSA in the sputum. Today I plan to give the patient a weaning trial again I would like to switch him to pressure support and CPAP, and I would like to see if the patient tolerates coming off propofol and use Precedex instead. Chest x- ray continues to show some right basilar airspace disease, improved compared to his initial chest x-ray on admission Patient was evaluated today on 12/19/2023, is in the ICU, intubated and mechanically ventilated however the patient has been on pressure support of 12 and CPAP over the last 24 hours, seems to be tolerating that quite well. ABG this morning showed a pO2 of 70 pCO2 42 pH of 7.42 and this was on 50% with a pressure support of 12//50% pressures was cut down to 10 and he continued to have adequate tidal volumes patient seems to be very awake, he is on Precedex off propofol off other sedatives, remains on vancomycin and Zosyn his TPN is at 50 cc/h, reviewed his chest x-ray showed evidence of edema and the patient was given a dose of Lasix with excellent urine output after the Lasix given.WBC count is 3.8 hemoglobin is 10.9.Basic metabolic profile is normal BUN is 7 creatinine 0.33 Patient was seen today on 12/20/2023, remains in the ICU, he was extubated yesterday uneventfully. However required to go on BiPAP at night since his pulmonary status is marginal. To have significant airspace disease and possibly pulmonary edema involving the right lung mostly. Patient remains on antibiotics in the form of Zosyn and on vancomycin. Remains on diuretics, patient has significant urine output this morning hence I held back on diuretics today.Patient is comfortable, he is on BiPAP, 12//50% and I cut it down to 45% and remains on TPN. WBC count is 3.5 hemoglobin 11.3, Basic metabolic profile is normal BUN is 12 creatinine 0.36 Objective - Vital Signs Vital signs: Vital Signs Temp 98.5 F 12/20/23 04:00 Pulse 91 12/20/23 12:00 Resp 26 H 12/20/23 12:00 BP 86/41 12/19/23 14:00 Pulse Ox 95 12/20/23 12:00 FiO2 50 12/20/23 08:07 Intake & Output 12/19/23 12/20/23 12/20/23 18:59 06:59 18:59 Intake Total 1399 1284.044 778 Output Total 5950 1370 925 Balance -4551 -85.956 -147 Weight 104.1 kg 101.2 kg Intake: IV 1149 1243 778 Mvi, Adult No.4 with Vit 750 990 540 K 10 ml Trace (Conc-1Ml/ Dose) 1 ml Parenteral Electrolytes 20 ml Potassium Acetate 24 meq Magnesium Sulfate gm 0.5 gm Sodium Phosphate 15 mmol In Amino Acids 5 %/ Dextrose 20 % 1,000 ml @ 90 mls/hr IV .[id number] [facility] Rx#:[id number] Normal Saline Pressure 39 33 18 Bag Piperacillin-Tazobactam 3 100 100 .375 gm In Sodium Chloride 0.9% 100 ml @ 25 mls/hr IVPB Q8HR [facility] Rx# :[id number] Sodium Chloride 0.9% 1, 260 220 120 000 ml @ 20 mls/hr IV . Q24H [facility] Rx#:[id number] Intake, IV Titration 250 41.044 Amount Dexmedetomidine/0.9% NaCl 41.044 (Pmx) 400 mcg In Empty Bag 1 bag @ 0.2 MCG/KG/HR 4.97 mls/hr IV .[id number] [facility] Rx#:[id number] Sodium Phosphate 15 mmol 250 In Dextrose 5% in Water 250 ml @ 127.5 mls/hr IVPB ONCE ONE Rx#: [id number] Output: Urine 5600 870 925 Stool 350 500 Other: Voiding Method Indwelling Catheter Indwelling Catheter Indwelling Catheter ABP, PAP, CO, CI - Last Documented Arterial Blood Pressure 152/64 - Exam General revealed a 48-year-old white male, i on BiPAP, does not seem to be in distress, he is on 50% 12/6 Head exam was generally normal. There was no scleral icterus or corneal arcus. Mucous membranes were moist. Neck supple. Full range of motion. No adenopathy thyromegaly or neck vein distention. old tracheostomy scar is noted over the anterior lower area of the neck. Cardiovascular: Normal S1-S2, no S3 gallop, no murmur. Lungs, diminished breath sound bilaterally no rhonchi no wheezes Abdomen: Midline dressing from previous surgery. No bowel sounds noted. The abdomen was soft, non-tender, and without masses, organomegaly, . The patient has a midline abdominal incision which is dry clean and intact and it is well- healed. The patient has an ileostomy and the patient also has anterior abdominal wall fistula which is draining Extremities are intact. No cyanosis. Clubbing noted. The patient has a right [id number] amputation. 1+ edema Skin is without rash or lesion. Patient does have right below-knee amputation Neurologic: Awake alert and oriented x 3 no gross focal deficit is except for chronic right-sided weakness - Labs CBC & Chem 7: 12/20/23 03:30 12/20/23 03:30 Labs: Abnormal Lab Results - Last 24 Hours (Table) 12/20/23 12/20/23 Range/Units 03:30 03:30 WBC 3.5 L (3.8-10.6) k/uL RBC 4.18 L (4.30-5.90) m/uL Hgb 11.3 L (13.0-17.5) gm/dL Hct 37.8 L (39.0-53.0) % MCHC 29.9 L (31.0-37.0) g/dL RDW 16.9 H (11.5-15.5) % Creatinine 0.36 L (0.66-1.25) mg/dL Glucose 136 H (74-99) mg/dL Calcium 7.9 L (8.4-10.2) mg/dL Microbiology - Last 24 Hours (Table) 12/16/23 12:36 Blood Culture - Preliminary Blood Assessment and Plan Assessment: Impression: Acute on chronic hypoxic respiratory failure requiring intubation mechanical ventilation. Patient was extubated on 12/19/2023 and he is now intermittently on BiPAP 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 from previous tracheostomy History of Crohn's disease Right hemidiaphragm elevation/chronic Acute sepsis and previous history of sepsis related to Serratia marcescens History of CVA with right-sided neurologic deficit History of DVT History of right below-knee amputation History of Crohn's disease and multiple abdominal surgeries with enterocutaneous fistulas and history of ileostomy History of cardiac arrest in 2021 Obesity Recommendation: Continue BiPAP and alternate intermittently with nasal cannula/high flow nasal c annula Continue to monitor in the ICU Ambulate to a bedside chair if possible Treat blood pressure with amlodipine. Resume his home metoprolol. Continue nutritional support, patient is on TPN Continue antibiotics, vancomycin and Zosyn Continue GI and DVT prophylaxis patient is on Lovenox 80 mg subcu every 12 hours Patient remains marginal at [facility] I have no plans to move out of the ICU today. Will continue to follow Time with Patient: Less than 30
[2023-12-20 15:02] LABS: Glucose,Whole Blood 116 mg/dL (70-110)
[2023-12-20 15:02] LABS: Glucose,Whole Blood 103 mg/dL (70-110)
[2023-12-20 15:03] LABS: Glucose,Whole Blood 101 mg/dL (70-110)
[2023-12-20 15:03] LABS: Glucose,Whole Blood 123 mg/dL (70-110)
[2023-12-20 15:03] LABS: Glucose,Whole Blood 89 mg/dL (70-110)
[2023-12-20 15:03] LABS: Glucose,Whole Blood 98 mg/dL (70-110)
[2023-12-20 15:03] LABS: Glucose,Whole Blood 99 mg/dL (70-110)
[2023-12-20 15:03] LABS: Glucose,Whole Blood 116 mg/dL (70-110)
[2023-12-20 15:03] LABS: Glucose,Whole Blood 113 mg/dL (70-110)
[2023-12-20 15:03] LABS: Glucose,Whole Blood 100 mg/dL (70-110)
[2023-12-20 15:03] LABS: Glucose,Whole Blood 108 mg/dL (70-110)
[2023-12-20 15:04] LABS: Glucose,Whole Blood 84 mg/dL (70-110)
[2023-12-20 15:04] LABS: Glucose,Whole Blood 116 mg/dL (70-110)
[2023-12-20 15:04] LABS: Glucose,Whole Blood 144 mg/dL (70-110)
[2023-12-20 15:04] LABS: Glucose,Whole Blood 108 mg/dL (70-110)
[2023-12-20 15:04] LABS: Glucose,Whole Blood 113 mg/dL (70-110)
[2023-12-20 15:04] LABS: Glucose,Whole Blood 70 mg/dL (70-110)
[2023-12-20 15:05] LABS: Glucose,Whole Blood 97 mg/dL (70-110)
[2023-12-20 15:05] LABS: Glucose,Whole Blood 71 mg/dL (70-110)
[2023-12-20 15:05] LABS: Glucose,Whole Blood 99 mg/dL (70-110)
[2023-12-20 15:05] LABS: Glucose,Whole Blood 105 mg/dL (70-110)
[2023-12-20 15:06] LABS: Glucose,Whole Blood 91 mg/dL (70-110)
[2023-12-20 17:55] LABS: Glucose,Whole Blood 97 mg/dL (70-110)
--- NOTE | 2023-12-20 21:43 | P.PN ---
Subjective Progress Note Date: 12/20/23 This is a pleasant 48 years old male with past medical history of Crohn disease complicated with bowel perforation requiring ileostomy, also has 2 fistula in his anterior abdominal Wall, patient also has left upper chest portal to receive TPN, patient also able to take oral feeding. 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 He has history of respiratory failure requiring tracheostomy insertion with subsequent removal Patient lives at home with his 2 sons. Information were obtained with the help of his mother at bedside. Patient presents to the hospital at this time because of respiratory difficulty, he came to emergency room yesterday for the same reason and he was discharged home, he was noticed to have hypoxia with coughing but that is improved yesterday. At home he have recurrence of his symptoms so he decided to come to emergency room today. Patient somewhat drowsy and could not participate in history however has per mother he is drowsy because of lack of sleep and he is usually more awake. Patient denies chest pain, no abdominal pain, he has ileostomy bag in place with some loose stool, as per mother at bedside this is his normal consistency. He has external urinary catheter. Denies dysuria or urgency. Both legs looks weak, has right BKA, no swelling or cellulitis. Patient is afebrile, he was hypoxic 88% on room air. Slightly tachypneic around 20. He has unremarkable CBC, BMP, liver enzymes, troponin x 1 less than 0.012. proBNP is 21. Influenza A and type B, RSV, SARS (coronavirus) are undetected D-dimer is negative at 0.45 EKG showing sinus rhythm at [address]-T changes Chest x-ray showing low volume but no acute process per radiologist Venous pH is low normal at 7.3, bicarb is elevated 34 and pCO2 is elevated at 62. Patient received prednisone 40 mg and Zithromax prior to hospitalization. 12/13 Patient developed complete collapse of the right lung, which is apparent on the chest x-ray this morning and he is developing more hypoxia he was saturation 77 and 5 L, currently he is kept on BiPAP He has no fever Blood pressure stable 127/64 Patient started on Zosyn also he is on IV Solu-Medrol 40 mg twice daily He is on a Protonix and therapeutic dose of Lovenox Pro- Calcitonin is low at 0.16 pH is low with high pCO2. Patient is going to be transferred to the ICU 12/14 Patient currently remains in the ICU intubated and sedated, also he required a small dose of Levophed for blood pressure support He status post bronchoscopy second 1 today, about 100 milliliter of mucus secretions pulled out. He has evidence of tracheomalacia as well but patent trachea. Bronchoscopy procedure reviewed with pulmonary team He is currently covered with IV vancomycin and Zosyn Cultures are still pending Chest x-ray showing endotracheal tube in position, right lower lobe infiltrate for pneumonia He is also on therapeutic dose of Lovenox continued from home 12/15 Patient remains in the ICU intubated and sedated with pulmonary/critical care team following closely and help with vent management Currently he is also requiring pressors, Levophed at 0.09 mcg/kg/min He is on IV vancomycin and Zosyn S/p bronchoscopy yesterday Sputum culture is growing haemophilus influenzae He is on home dose of Lovenox for 80 mg twice daily He is on normal saline 75 L/h 12/17/2023 Patient is MICU on mechanical ventilator. Patient remains on norepinephrine and is sedated with propofol. On IV hydration with normal saline 75/h. Chest x-ray showed stable portable chest. Clinical correlation and follow-up on resolution is recommended. Laboratory data showed WBC 5.6 hemoglobin 11.9 and platelets 166 sodium 137 potassium 3.5 chloride 112 bicarb is 21 BUN 4 and creatinine 0.37 and blood sugar 120 and magnesium 1.6. TSH within normal limits. Patient is being continued on antibiotics in the form of Zosyn. Sputum culture showed haemophilus influenza. 12/18/2023 Patient is in the MICU. Currently on mechanical ventilator. Patient is also on norepinephrine drip which is being slowed down. Chest x-ray today showed stable portable chest. Clinical correlation and follow-up until resolution is recommended. Patient is being continued on antibiotics and home Zosyn. Also on vancomycin. Laboratory data showed WBC 4.2 hemoglobin 11.4 and platelets 176 sodium 140 potassium 3.2 chloride 112 bicarb is 24 BUN 14 creatinine 0.29 and blood sugar 118 and magnesium 1.8. 12/19/2023 Patient is in the MICU currently on pressure support. Patient is otherwise awake alert and oriented. No complaints of chest pain or shortness of breath. No nausea or vomiting. Patient on TPN. Continued on antibiotics above vancomycin and Zosyn. Chest x-ray today showed stable portable chest. Clinical correlation and follow-up on resolution is recommended. Laboratory data showed WBC 3.8 hemoglobin 10.9 and platelets 159 sodium 138 potassium 3.7 chloride 113 bicarb is 26 BUN 7 creatinine 0.33 and blood sugar 100 and phosphorus 2.3 AST 15 ALT 13 alk phos 69 albumin 2.3 12/20/2023 Patient is seen in the MICU. Patient was on BiPAP yesterday and was extubated later. Awake alert and oriented currently requiring oxygen at 6 L via nasal cannula. Chest x-ray today showed stable chest. Denied any chest pain or worsening shortness of breath. No cough or sputum production. Stool is noted in the ostomy output. Urine output is adequate. Laboratory data showed WBC 3.4 hemoglobin 11.3 and platelets 161 sodium 137 potassium 3.7, bicarb 28 BUN 12 and creatinine 0.36 and blood sugar 136 and calcium 7.9 and magnesium 1.7. Patient remains on antibiotics in the form of vancomycin and Zosyn. Nasal screen showed MRSA and sputum culture showed haemophilus influenza. Critical care team is on board. Current medications reviewed. Objective - Vital Signs Vital signs: Vital Signs Temp 98.5 F 12/20/23 04:00 Pulse 91 12/20/23 12:00 Resp 26 H 12/20/23 12:00 BP 86/41 12/19/23 14:00 Pulse Ox 95 12/20/23 12:00 FiO2 50 12/20/23 08:07 Intake & Output 12/19/23 12/20/23 12/20/23 18:59 06:59 18:59 Intake Total 1399 1284.044 665 Output Total 5950 1370 625 Balance -4551 -85.956 40 Weight 104.1 kg 101.2 kg Intake: IV 1149 1243 665 Mvi, Adult No.4 with Vit 750 990 450 K 10 ml Trace (Conc-1Ml/ Dose) 1 ml Parenteral Electrolytes 20 ml Potassium Acetate 24 meq Magnesium Sulfate gm 0.5 gm Sodium Phosphate 15 mmol In Amino Acids 5 %/ Dextrose 20 % 1,000 ml @ 90 mls/hr IV .[id number] [facility] Rx#:[id number] Normal Saline Pressure 39 33 15 Bag Piperacillin-Tazobactam 3 100 100 .375 gm In Sodium Chloride 0.9% 100 ml @ 25 mls/hr IVPB Q8HR [facility] Rx# :[id number] Sodium Chloride 0.9% 1, 260 220 100 000 ml @ 20 mls/hr IV . Q24H [facility] Rx#:[id number] Intake, IV Titration 250 41.044 Amount Dexmedetomidine/0.9% NaCl 41.044 (Pmx) 400 mcg In Empty Bag 1 bag @ 0.2 MCG/KG/HR 4.97 mls/hr IV .[id number] [facility] Rx#:[id number] Sodium Phosphate 15 mmol 250 In Dextrose 5% in Water 250 ml @ 127.5 mls/hr IVPB ONCE ONE Rx#: [id number] Output: Urine 5600 870 625 Stool 350 500 Other: Voiding Method Indwelling Catheter Indwelling Catheter Indwelling Catheter ABP, PAP, CO, CI - Last Documented Arterial Blood Pressure 152/64 - Exam - Exam -GENERAL: The patient is awake alert and oriented. Currently on nasal cannula at 6 L. HEENT: Pupils are round and equally reacting to light. EOMI. No scleral icterus. No conjunctival pallor. Normocephalic, atraumatic. No pharyngeal erythema. No thyromegaly. CARDIOVASCULAR: S1 and S2 present. No murmurs, rubs, or gallops. PULMONARY: Decreased breath sounds on the right side, no wheezing , no crackles. ABDOMEN: Soft, nontender, nondistended, normoactive bowel sounds. No palpable organomegaly. Ostomy bag in place. MUSCULOSKELETAL: No joint swelling or deformity. Right BKA EXTREMITIES: No cyanosis, clubbing, left lower extremity edema and scrotal edema. NEUROLOGICAL: Gross neurological examination did not reveal any focal deficits. SKIN: No rashes. no petechiae. - Labs CBC & Chem 7: 12/20/23 03:30 12/20/23 03:30 Labs: Abnormal Lab Results - Last 24 Hours (Table) 12/20/23 12/20/23 Range/Units 03:30 03:30 WBC 3.5 L (3.8-10.6) k/uL RBC 4.18 L (4.30-5.90) m/uL Hgb 11.3 L (13.0-17.5) gm/dL Hct 37.8 L (39.0-53.0) % MCHC 29.9 L (31.0-37.0) g/dL RDW 16.9 H (11.5-15.5) % Creatinine 0.36 L (0.66-1.25) mg/dL Glucose 136 H (74-99) mg/dL Calcium 7.9 L (8.4-10.2) mg/dL Microbiology - Last 24 Hours (Table) 12/16/23 12:36 Blood Culture - Preliminary Blood Assessment and Plan Assessment: Right lower lobe pneumonia, complicated by right lung collapse secondary to mucous plug status post bronchoscopy on 12/13 and 12/14. Sputum culture showed haemophilus influenza. Nasal culture showed MRSA. Septic shock secondary to above Acute hypoxic hypercapnic respiratory failure. Was on mechanical ventilator, changed to pressure support. Extubated on 12/19/2023. 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 Was extubated on 12/19/2023. Currently on 6 L via nasal cannula. Patient is off pressor support. Patient started on Zosyn and IV vancomycin Sputum cultures growing Haemophilus influenzae Off Levophed. Continue bronchodilators. Labs and medication were reviewed. Monitor labs and vitals. DVT and GI prophylaxis. DVT prophylaxis: Subcutaneous Lovenox 80 mg twice daily home dose GI Prophylaxis: Pepcid PT/OT: Pending Prognosis is guarded Time with Patient: Greater than 30
[2023-12-20] MEDS: MAGNESIUM SULFATE-D5W PMX 1 GM in DEXTROSE/WATER 1 100ML.BAG IVPB ONE (22:59)
[2023-12-21] MEDS: MAGNESIUM SULFATE-D5W PMX 1 GM in DEXTROSE/WATER 1 100ML.BAG IVPB ONE ×2 (00:02→12:08)
[2023-12-21 00:43] LABS: Glucose,Whole Blood 108 mg/dL (70-110)
[2023-12-21] MEDS: traZODone HCL 50 MG TAB PO PRN (02:26)
[2023-12-21 05:20] LABS: Glucose,Whole Blood 106 mg/dL (70-110)
[2023-12-21 05:46] LABS: Ionized Calcium 4.8 mg/dL (4.5-5.3)
[2023-12-21 05:47] LABS: Anisocytosis Slight; Basophils % (A) 0 %; Eosinophils # (A) 0.2 k/uL (0-0.7); Eosinophils % (A) 4 %; HCT 39.8 % (39.0-53.0); HGB 11.7 gm/dL (13.0-17.5); Hypochromasia Marked; Lymphocytes # (A) 1.4 k/uL (1.0-4.8); Lymphocytes % (A) 32 %; MCH 26.5 pg (25.0-35.0); MCHC 29.4 g/dL (31.0-37.0); Mean Platelet Volume 9.2; Monocytes # (A) 0.3 k/uL (0-1.0); Monocytes % (A) 6 %; Neutrophils # (A) 2.3 k/uL (1.3-7.7); Neutrophils % (A) 55 %; Platelet Count 207 k/uL (150-450); RBC 4.42 m/uL (4.30-5.90); RDW 16.7 % (11.5-15.5); WBC 4.3 k/uL (3.8-10.6)
[2023-12-21 05:58] LABS: African American GFR (CKD) >90 (>60 ml/min/1.73 sqM); Anion Gap 0 mmol/L; Blood Urea Nitrogen 12 mg/dL (9-20); Calcium 8.3 mg/dL (8.4-10.2); Carbon Dioxide 33 mmol/L (22-30); Chloride 104 mmol/L (98-107); Glucose 111 mg/dL (74-99); Magnesium 2.1 mg/dL (1.6-2.3); Non-African American GFR(CKD) >90 (>60 ml/min/1.73 sqM); Phosphorus 2.9 mg/dL (2.5-4.5); Potassium 4.1 mmol/L (3.5-5.1); Sodium 137 mmol/L (137-145)
--- NOTE | 2023-12-21 07:54 | XR ---
EXAMINATION TYPE: XR chest 1V portable DATE OF EXAM: 12/21/2023 COMPARISON: 12/20/2023 INDICATION: Right lower lobe infiltrate TECHNIQUE: Single frontal view of the chest is obtained. FINDINGS: The heart size is normal. The pulmonary vasculature is normal. There is a right lower lobe infiltrate. Silhouetting the diaphragms is present. Left central venous c atheter tip is within the superior vena cava. IMPRESSION: 1. Right lower lobe infiltrate. 2. Right pleural effusion may be present. Minimal left pleural effusion considered. Follow-up is lazaro mmended. [facility], Workstation: [facility], 12/21/2023 7:52 AM
[2023-12-21] MEDS: FUROSEMIDE 10 MG/ML 4 ML VIAL IV SCH (09:59)
[2023-12-21] MEDS: FAT EMULSION 20% 250 ML in EMPTY BAG 1 BAG IV ONE (10:55)
[2023-12-21 11:43] LABS: Glucose,Whole Blood 123 mg/dL (70-110)
--- NOTE | 2023-12-21 12:54 | P.PN ---
Subjective Progress Note Date: 12/21/23 Principal diagnosis: Acute hypoxic respiratory failure secondary to right lung pneumonia secondary to haemophilus influenza. This is a 48-year-old male patient, brought into the hospital because of hypoxemia that was noted at home. The patient is not having any worsening short ness of breath. No reported aspiration. Occasional cough and congestion. No significant sputum production. The patient has a very extensive past medical history. He is known to have previous history of Crohn's disease that has been complicated by bowel perforation for which the patient required a bowel resection and currently has an ileostomy. 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 Note that his course was rather complicated following his previous bowel surgery. The patient had prolonged ventilator dependent respiratory failure requiring intubation mechanical ventilation and subsequent tracheostomy tube insertion. The patient also required hemodialysis for renal failure and renal replacement therapy. Ultimately, dialysis has been discontinued as the patient renal function improved and the tracheostomy tube was also eliminated. 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 His last evaluation here in our hospital was and February 2023 and at that time, the patient came into us with generalized weakness and fatigue and he was treated for sepsis/bacteremia and the treatment was successful. He continues to have a port in his left anterior chest area through which she receives TPN to supplement his oral intake. His current white cell count at 6.3 with a heme of 13 and a platelet count of 152. Sodium is 138 with a potassium level of 4.7, BUN 16 with a creatinine of 0.33. His UA is negative. Viral screen is also negative. The patient's slightly lethargic. He is arousable and awake. He is currently on 3 L of oxygen by nasal cannula with pulse ox 93%. His chest x-ray shows chronic elevation of the right hemidiaphragm without any acute cardiopulmonary process. The patient has been maintained on anticoagulation on outpatient basis and he is on Lovenox 80 mg subcu every 12 hours. On 12/14/2023, the patient is being seen for a follow-up in the emergency department. The patient was slightly hypoxic and was admitted to the hospital for further investigation. Overnight, the patient's condition became worse. The patient had a repeat chest x-ray earlier this morning and the patient was found to have complete collapse of the right lung with volume loss. There was complete widening out of the right lung. Following that, the patient became progressively hypoxic. The patient had a blood gas that showed a pH of 7.28 wit h a pCO2 of 78 and pO2 of 63 consistent with an acute on top of chronic respiratory acidosis with significant hypoxemia. Based on that, the patient was placed on a BiPAP at a pressure of 12 over 6 cm of water. Subsequently, the oxygenation improved and the patient got transferred to the ICU. Prior to next discussion with the patient. The patient was awake and alert and he seemed to be able to make his own medical decisions. I also contacted the family members and discussed with them the findings. The findings are consistent with mucous plugging and volume loss and a complete atelectasis of the right lung. The patient will obviously need to be supported with mechanical ventilator and s ubsequently have a bronchoscopy done regarding the right lung atelectasis. Patient was agreeable to that. I initially attempted to do the bronchoscope under conscious sedation. Give the patient a total of 4 mg of Versed. However, following that, I noted that the patient became progressively more hypoxic while being on high flow nasal oxygen and 100% nonrebreather facemask. Based on that, I intubated the patient. During the intubation process, I noted that it was difficult to push and the #8 orotracheal tube. 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 Nevertheless, I was able to pass the ET tube to the level of the tracheal stenosis. There was adequate ventilation at that point. I also inserted the bronchoscope and therapeutic airway suctioning was done with copious amount of thick purulent creamy respiratory secretions were identified in the right lower lobe and right mainstem bronchus. Total amount of volume aspirated from the right lung was in the order of 40 cc of purulent material. The patient was started on a combination of Zosyn and vancomycin. Currently is on propofol at 20 mcg/kg/min. Hemodynamically stable. Postprocedure chest x-ray done showed marked improvement in aeration of the right lung with marked reduction in the right lung atelectasis. There was interval development of a small left-sided pulmonary infiltrates. ET tube was seen in the upper tracheal area. Unable to push in the ET tube any further due to underlying tracheal stenosis. Hemodynamically stable at this point in time. Family has been informed of the changes. The white cell count from this morning is at 10 with a hemoglobin 15 and a platelet count of 155. Sodium is at 138, potassium is 4.4, BUN 21 with a creatinine of 0.36. Currently intubated on the mechanical ventilator. 12/15/2023, patient is being seen for a follow-up. The patient is arousable while being on propofol which is running at 50 mcg/kg/min. He is able to communicate even while being on sedation. As mentioned, he was intubated and placed on mechanical ventilator and copious amounts of mucous plugs was aspirated from the right lung yesterday. This was done following the bronchoscopy. Cultures are still pending for now although there is a preliminary sputum culture that showed haemophilus influenza. The patient is currently on a combination Zosyn and vancomycin. Meanwhile, the patient remains on mechanical ventilator assist-control mode with rate of 24, tidal volume of 400, FiO2 of 60% with a PEEP of 5. Chest x-ray still showing atelectatic changes right lung base. There is improved aeration of the right lung in general. The blood gas showed a pH of 7.5 with a pCO2 of 45 and a pO2 of 75. The blood work shows a white cell count of 13.4 with a hemoglobin of 12.4 and platelet count of 196. Sodium is 136, potassium is at 4.5, BUN is 18 with a creatinine of 0.35. The patient is also on IV fluids with normal saline at rate of 75 cc an hour. He is on norepinephrine at 0.04 mcg/kg/min. No other significant events overnight. Output from the abdominal fistulas and ileostomy has been noted. Later today on 12/16/23, patient remains in the ICU, intubated and mechanically ventilated. He is on assist-control rate of 24 tidal volume 400 FiO2 50% and PEEP of 5 ABG showed a pO2 of 82 pCO2 43 pH of 7.39. Patient remains on norepinephrine at 0.09 mcg/kg/min on propofol at 60 mcg/kg/min he is also on TPN. Patient is receiving vancomycin and Zosyn for what seems to be haemophilus influenza pneumonia, may consider stopping vancomycin and continue Zosyn. Blood cultures are pending, cultures from BAL are pending. Procalcitonin level is 0.85. Chest x-ray continues to show extensive disease involving the right lower lobe and left lower lobe. WBC count is 8 hemoglobin 11.9. Potassium is low at 2.6 being addressed as per protocol. Procalcitonin level is 0.85. C-reactive protein 13.2. According to the nurses patient was appropriate off sedation earlier this morning, but looking at his overall picture and his clinical findings on examination, patient is not ready for weaning and extubation. Patient was evaluated today on 12/17/2023, remains in the ICU, intubated and mechanically ventilated. Patient is on assist-control rate of 24 tidal volume 400 FiO2 60% PEEP increased to 8. ABG not done today, it is pending.WBC count is 5.6 hemoglobin 11.9. Basic metabolic profile is normal BUN is 4 creatinine 0.37 patient remains on vancomycin and Zosyn, procalcitonin level is 0.85 chest x-ray shows improvement in bibasilar opacities. Patient is very norepinephrine at 0.09 mcg/kg/min he is also on TPN at 30 cc/h propofol at 70 mcg/kg/min and IV fluids 75 cc/h 0.9 normal saline. His sputum came back positive for H. influenzae and MRSA. Patient again is on Zosyn and vancomycin. I am planning today to give the patient a weaning trial, and I did, few hours later I was notified that the patient's weaning parameters where very poor off propofol, hence I recommended that he goes back on propofol, and he is not ready for weaning. Patient evaluated today on 12/18/2023, patient remains in the ICU, intubated mechanically ventilated, patient was on norepinephrine until earlier today, he is to be on norepinephrine at 0.03 mcg/kg/min, remains on assist-control rate of 24 tidal volume 400 FiO2 50% and PEEP of 8. ABG today showed a pO2 of 73 pCO2 47 pH of 7.38. Hence no changes were made in his ventilator settings. I did establish a left brachial arterial line in this patient for hemodynamic dory toring and blood gases monitoring on a daily basis. Patient had difficult access, he does have a left subclavian central line and now he has a left brachial arterial line. Patient is on TPN he is also on propofol and he is on IV fluid at 20 cc/h. Remains on vancomycin and Zosyn for haemophilus influenza and MRSA in the sputum. Today I plan to give the patient a weaning trial again I would like to switch him to pressure support and CPAP, and I would like to see if the patient tolerates coming off propofol and use Precedex instead. Chest x- ray continues to show some right basilar airspace disease, improved compared to his initial chest x-ray on admission Patient was evaluated today on 12/19/2023, is in the ICU, intubated and mechanically ventilated however the patient has been on pressure support of 12 and CPAP over the last 24 hours, seems to be tolerating that quite well. ABG this morning showed a pO2 of 70 pCO2 42 pH of 7.42 and this was on 50% with a pressure support of 12/6/50% pressures was cut down to 10 and he continued to have adequate tidal volumes patient seems to be very awake, he is on Precedex off propofol off other sedatives, remains on vancomycin and Zosyn his TPN is at 50 cc/h, reviewed his chest x-ray showed evidence of edema and the patient was given a dose of Lasix with excellent urine output after the Lasix given.WBC count is 3.8 hemoglobin is 10.9.Basic metabolic profile is normal BUN is 7 creatinine 0.33 Patient was seen today on 12/20/2023, remains in the ICU, he was extubated yesterday uneventfully. However required to go on BiPAP at night since his pulmonary status is marginal. To have significant airspace disease and possibly pulmonary edema involving the right lung mostly. Patient remains on antibiotics in the form of Zosyn and on vancomycin. Remains on diuretics, patient has significant urine output this morning hence I held back on diuretics today.Patient is comfortable, he is on BiPAP, 12/6/50% and I cut it down to 45% and remains on TPN. WBC count is 3.5 hemoglobin 11.3, Basic metabolic profile is normal BUN is 12 creatinine 0.36 Patient was seen today on 12/21/2023, remains in the ICU on 4 L nasal cannula tolerated the extubation very well over the last 2 days, patient is gradually improving, clinically better. Procalcitonin today 0.19, chest x-ray continues to show some interstitial edema especially on the right side, patient is improving with Lasix, more Lasix was given today.Antibiotics have been discontinued today WBC count is 4.3 hemoglobin 11.7 basic metabolic profile is normal renal profile is normal Objective - Vital Signs Vital signs: Vital Signs Temp 98.2 F 12/21/23 11:55 Pulse 85 12/21/23 11:55 Resp 18 12/21/23 11:55 BP 115/70 12/21/23 11:55 Pulse Ox 91 L 12/21/23 11:55 FiO2 50 12/20/23 08:07 Intake & Output 12/20/23 12/21/23 12/21/23 18:59 06:59 18:59 Intake Total 2507 2596 443 Output Total 4420 2150 2325 Balance -1913 446 -1882 Weight 101.2 kg 97.3 kg Intake: IV 1456 1556 443 Magnesium Sulfate-D5w Pmx 200 1 gm In Dextrose/Water 1 100ml.bag @ 100 mls/hr IVPB ONCE ONE Rx#: [id number] Mvi, Adult No.4 with Vit 1080 1080 360 K 10 ml Trace (Conc-1Ml/ Dose) 1 ml Parenteral Electrolytes 20 ml Potassium Acetate 24 meq Magnesium Sulfate gm 0.5 gm Sodium Phosphate 15 mmol In Amino Acids 5 %/ Dextrose 20 % 1,000 ml @ 90 mls/hr IV .[id number] [facility] Rx#:[id number] Normal Saline Pressure 36 36 3 Bag Piperacillin-Tazobactam 3 100 .375 gm In Sodium Chloride 0.9% 100 ml @ 25 mls/hr IVPB Q8HR ANNIE Rx# :[id number] Sodium Chloride 0.9% 1, 240 240 80 000 ml @ 20 mls/hr IV . Q24H [facility] Rx#:[id number] Intake, IV Titration 1051 1040 Amount Mvi, Adult No.4 with Vit 1051 K 10 ml Trace (Conc-1Ml/ Dose) 1 ml Parenteral Electrolytes 20 ml Potassium Acetate 24 meq Magnesium Sulfate gm 0.5 gm Sodium Phosphate 21 mmol In Amino Acids 5 %/ Dextrose 20 % 1,000 ml @ 90 mls/hr IV .BY DURATION [facility] Rx#:[id number] Parenteral Electrolytes 1040 20 ml Potassium Acetate 24 meq Magnesium Sulfate gm 0.5 gm Sodium Phosphate 21 mmol In Amino Acids 5 %/Dextrose 20 % 1,000 ml @ 90 mls/hr IV .BY DURATION [facility] Rx#: [id number] Output: Urine 2920 2150 1650 Uretheral ([place]) 850 Stool 1500 675 Other: Voiding Method Indwelling Catheter Indwelling Catheter Indwelling Catheter ABP, PAP, CO, CI - Last Documented Arterial Blood Pressure 138/57 - Exam General revealed a 48-year-old white male, i on 4 L nasal cannula in no distress Head exam was generally normal. There was no scleral icterus or corneal arcus. Mucous membranes were moist. Neck supple. Full range of motion. No adenopathy thyromegaly or neck vein distention. old tracheostomy scar is noted over the anterior lower area of the neck. Cardiovascular: Normal S1-S2, no S3 gallop, no murmur. Lungs, diminished breath sound bilaterally no rhonchi no wheezes Abdomen: Midline dressing from previous surgery. No bowel sounds noted. The abdomen was soft, non-tender, and without masses, organomegaly, . The patient has a midline abdominal incision which is dry clean and intact and it is well- healed. The patient has an ileostomy and the patient also has anterior abdominal wall fistula which is draining Extremities are intact. No cyanosis. Clubbing noted. The patient has a right [id number] amputation. 1+ edema Skin is without rash or lesion. Patient does have right below-knee amputation Neurologic: Awake alert and oriented x 3 no gross focal deficit is except for chronic right-sided weakness - Labs CBC & Chem 7: 12/21/23 05:00 12/21/23 05:19 Labs: Abnormal Lab Results - Last 24 Hours (Table) 12/17/23 12/17/23 12/17/23 Range/Units 11:06 17:39 23:34 Hgb (13.0-17.5) gm/dL MCHC (31.0-37.0) g/dL RDW (11.5-15.5) % Carbon Dioxide (22-30) mmol/L Creatinine (0.66-1.25) mg/dL Glucose (74-99) mg/dL POC Glucose (mg/dL) 144 H 113 H 116 H (70-110) mg/dL Calcium (8.4-10.2) mg/dL Triglycerides (0.00-149.00) mg/dL 12/18/23 12/18/23 12/19/23 Range/Units 00:20 05:58 12:22 Hgb (13.0-17.5) gm/dL MCHC (31.0-37.0) g/dL RDW (11.5-15.5) % Carbon Dioxide (22-30) mmol/L Creatinine (0.66-1.25) mg/dL Glucose (74-99) mg/dL POC Glucose (mg/dL) 123 H 116 H 116 H (70-110) mg/dL Calcium (8.4-10.2) mg/dL Triglycerides (0.00-149.00) mg/dL 12/20/23 12/21/23 12/21/23 Range/Units 00:19 05:00 05:19 Hgb 11.7 L (13.0-17.5) gm/dL MCHC 29.4 L (31.0-37.0) g/dL RDW 16.7 H (11.5-15.5) % Carbon Dioxide 33 H (22-30) mmol/L Creatinine 0.31 L (0.66-1.25) mg/dL Glucose 111 H (74-99) mg/dL POC Glucose (mg/dL) 113 H (70-110) mg/dL Calcium 8.3 L (8.4-10.2) mg/dL Triglycerides (0.00-149.00) mg/dL 12/21/23 12/21/23 Range/Units 05:19 11:39 Hgb (13.0-17.5) gm/dL MCHC (31.0-37.0) g/dL RDW (11.5-15.5) % Carbon Dioxide (22-30) mmol/L Creatinine (0.66-1.25) mg/dL Glucose (74-99) mg/dL POC Glucose (mg/dL) 123 H (70-110) mg/dL Calcium (8.4-10.2) mg/dL Triglycerides 185.00 H (0.00-149.00) mg/dL Assessment and Plan Assessment: Impression: Acute on chronic hypoxic respiratory failure requiring intubation mechanical ventilation. Patient was extubated on 12/19/2023, tolerating nasal cannula well for now. 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 from previous tracheostomy History of Crohn's disease Right hemidiaphragm elevation/chronic Acute sepsis and previous history of sepsis related to Serratia marcescens History of CVA with right-sided neurologic deficit History of DVT History of right below-knee amputation History of Crohn's disease and multiple abdominal surgeries with enterocutaneous fistulas and history of ileostomy History of cardiac arrest in 2021 Obesity Recommendation: Continue oxygen and titrate accordingly Transfer patient to cardiac floor Discontinue IV antibiotics Continue diuretics Continue blood pressure meds Continue nutritional support, patient is on TPN Continue GI and DVT prophylaxis patient is on Lovenox 80 mg subcu every 12 hours Long-term prognosis remains poor and guarded especially with his multiple morbidities Will continue to follow Time with Patient: Less than 30
--- NOTE | 2023-12-21 14:21 | P.PN ---
Subjective Progress Note Date: 12/21/23 This is a pleasant 48 years old male with past medical history of Crohn disease complicated with bowel perforation requiring ileostomy, also has 2 fistula in his anterior abdominal Wall, patient also has left upper chest portal to receive TPN, patient also able to take oral feeding. 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 He has history of respiratory failure requiring tracheostomy insertion with subsequent removal Patient lives at home with his 2 sons. Information were obtained with the help of his mother at bedside. Patient presents to the hospital at this time because of respiratory difficulty, he came to emergency room yesterday for the same reason and he was discharged home, he was noticed to have hypoxia with coughing but that is improved yesterday. At home he have recurrence of his symptoms so he decided to come to emergency room today. Patient somewhat drowsy and could not participate in history however has per mother he is drowsy because of lack of sleep and he is usually more awake. Patient denies chest pain, no abdominal pain, he has ileostomy bag in place with some loose stool, as per mother at bedside this is his normal consistency. He has external urinary catheter. Denies dysuria or urgency. Both legs looks weak, has right BKA, no swelling or cellulitis. Patient is afebrile, he was hypoxic 88% on room air. Slightly tachypneic around 20. He has unremarkable CBC, BMP, liver enzymes, troponin x 1 less than 0.012. proBNP is 21. Influenza A and type B, RSV, SARS (coronavirus) are undetected D-dimer is negative at 0.45 EKG showing sinus rhythm at [address]-T changes Chest x-ray showing low volume but no acute process per radiologist Venous pH is low normal at 7.3, bicarb is elevated 34 and pCO2 is elevated at 62. Patient received prednisone 40 mg and Zithromax prior to hospitalization. 12/13 Patient developed complete collapse of the right lung, which is apparent on the chest x-ray this morning and he is developing more hypoxia he was saturation 77 and 5 L, currently he is kept on BiPAP He has no fever Blood pressure stable 127/64 Patient started on Zosyn also he is on IV Solu-Medrol 40 mg twice daily He is on a Protonix and therapeutic dose of Lovenox Pro- Calcitonin is low at 0.16 pH is low with high pCO2. Patient is going to be transferred to the ICU 12/14 Patient currently remains in the ICU intubated and sedated, also he required a small dose of Levophed for blood pressure support He status post bronchoscopy second 1 today, about 100 milliliter of mucus secretions pulled out. He has evidence of tracheomalacia as well but patent trachea. Bronchoscopy procedure reviewed with pulmonary team He is currently covered with IV vancomycin and Zosyn Cultures are still pending Chest x-ray showing endotracheal tube in position, right lower lobe infiltrate for pneumonia He is also on therapeutic dose of Lovenox continued from home 12/15 Patient remains in the ICU intubated and sedated with pulmonary/critical care team following closely and help with vent management Currently he is also requiring pressors, Levophed at 0.09 mcg/kg/min He is on IV vancomycin and Zosyn S/p bronchoscopy yesterday Sputum culture is growing haemophilus influenzae He is on home dose of Lovenox for 80 mg twice daily He is on normal saline 75 L/h 12/17/2023 Patient is MICU on mechanical ventilator. Patient remains on norepinephrine and is sedated with propofol. On IV hydration with normal saline 75/h. Chest x-ray showed stable portable chest. Clinical correlation and follow-up on resolution is recommended. Laboratory data showed WBC 5.6 hemoglobin 11.9 and platelets 166 sodium 137 potassium 3.5 chloride 112 bicarb is 21 BUN 4 and creatinine 0.37 and blood sugar 120 and magnesium 1.6. TSH within normal limits. Patient is being continued on antibiotics in the form of Zosyn. Sputum culture showed haemophilus influenza. 12/18/2023 Patient is in the MICU. Currently on mechanical ventilator. Patient is also on norepinephrine drip which is being slowed down. Chest x-ray today showed stable portable chest. Clinical correlation and follow-up until resolution is recommended. Patient is being continued on antibiotics and home Zosyn. Also on vancomycin. Laboratory data showed WBC 4.2 hemoglobin 11.4 and platelets 176 sodium 140 potassium 3.2 chloride 112 bicarb is 24 BUN 14 creatinine 0.29 and blood sugar 118 and magnesium 1.8. 12/19/2023 Patient is in the MICU currently on pressure support. Patient is otherwise awake alert and oriented. No complaints of chest pain or shortness of breath. No nausea or vomiting. Patient on TPN. Continued on antibiotics above vancomycin and Zosyn. Chest x-ray today showed stable portable chest. Clinical correlation and follow-up on resolution is recommended. Laboratory data showed WBC 3.8 hemoglobin 10.9 and platelets 159 sodium 138 potassium 3.7 chloride 113 bicarb is 26 BUN 7 creatinine 0.33 and blood sugar 100 and phosphorus 2.3 AST 15 ALT 13 alk phos 69 albumin 2.3 12/20/2023 Patient is seen in the MICU. Patient was on BiPAP yesterday and was extubated later. Awake alert and oriented currently requiring oxygen at 6 L via nasal cannula. Chest x-ray today showed stable chest. Denied any chest pain or worsening shortness of breath. No cough or sputum production. Stool is noted in the ostomy output. Urine output is adequate. Laboratory data showed WBC 3.4 hemoglobin 11.3 and platelets 161 sodium 137 potassium 3.7, bicarb 28 BUN 12 and creatinine 0.36 and blood sugar 136 and calcium 7.9 and magnesium 1.7. Patient remains on antibiotics in the form of vancomycin and Zosyn. Nasal screen showed MRSA and sputum culture showed haemophilus influenza. Critical care team is on board. 12/20. Patient seen and examined. Patient was transferred out of ICU this morning. Currently on 3 S. Patient stated he feels much better. Family at the bedside. Breathing is improved. REVIEW OF SYSTEMS: CONSTITUTIONAL: No fever, no malaise,. CARDIOVASCULAR: No chest pain, no palpitations, no syncope. PULMONARY: No shortness of breath, no cough, GASTROINTESTINAL: No diarrhea, no nausea, no vomiting, no abdominal pain. NEUROLOGICAL: No headaches, no weakness, PHYSICAL EXAMINATION: GENERAL: The patient is alert and oriented x3, ill looking HEENT: Pupils are round and equally reacting to light. EOMI. No scleral icterus. No conjunctival pallor. Normocephalic, atraumatic. No pharyngeal erythema. No thyromegaly. CARDIOVASCULAR: S1 and S2 present. No murmurs, rubs, or gallops. PULMONARY: Diminished breath sound the bases bilaterally ABDOMEN: Soft, nontender, nondistended, normoactive bowel sounds ostomy MUSCULOSKELETAL: No joint swelling or deformity. EXTREMITIES: No cyanosis, clubbing, or pedal edema. NEUROLOGICAL: Gross neurological examination did not reveal any focal deficits. SKIN: No rashes. Assessment and plan Right lower lobe pneumonia, complicated by right lung collapse secondary to mucous plug status post bronchoscopy on 12/13 and 12/14. Sputum culture showed haemophilus influenza. Nasal culture showed MRSA. Septic shock secondary to above Acute hypoxic hypercapnic respiratory failure. Was on mechanical ventilator, changed to pressure support. Extubated on 12/19/2023. 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 Continue same treatment. Continue with symptomatic treatment. Resume home medication. Monitor labs and vitals. DVT and GI prophylaxis. Further recommendations as per clinical course of the patient Dictation was produced using [employer] dictation software. please excuse any grammatical, word or spelling errors. Objective - Vital Signs Vital signs: Vital Signs Temp 98.2 F 12/21/23 11:55 Pulse 85 12/21/23 11:55 Resp 18 12/21/23 11:55 BP 115/70 12/21/23 11:55 Pulse Ox 91 L 12/21/23 11:55 FiO2 50 12/20/23 08:07 Intake & Output 12/20/23 12/21/23 12/21/23 18:59 06:59 18:59 Intake Total 6980 2596 443 Output Total 4442 6930 2800 Balance -7342 036 -0543 Weight 101.2 kg 97.3 kg Intake: IV 1456 1556 443 Magnesium Sulfate-D5w Pmx 200 1 gm In Dextrose/Water 1 100ml.bag @ 100 mls/hr IVPB ONCE ONE Rx#: [id number] Mvi, Adult No.4 with Vit 1080 1080 360 K 10 ml Trace (Conc-1Ml/ Dose) 1 ml Parenteral Electrolytes 20 ml Potassium Acetate 24 meq Magnesium Sulfate gm 0.5 gm Sodium Phosphate 15 mmol In Amino Acids 5 %/ Dextrose 20 % 1,000 ml @ 90 mls/hr IV .[id number] ANNIE Rx#:[id number] Normal Saline Pressure 36 36 3 Bag Piperacillin-Tazobactam 3 100 .375 gm In Sodium Chloride 0.9% 100 ml @ 25 mls/hr IVPB Q8HR [facility] Rx# :[id number] Sodium Chloride 0.9% 1, 240 240 80 000 ml @ 20 mls/hr IV . Q24H ANNIE Rx#:[id number] Intake, IV Titration 1051 1040 Amount Mvi, Adult No.4 with Vit 1051 K 10 ml Trace (Conc-1Ml/ Dose) 1 ml Parenteral Electrolytes 20 ml Potassium Acetate 24 meq Magnesium Sulfate gm 0.5 gm Sodium Phosphate 21 mmol In Amino Acids 5 %/ Dextrose 20 % 1,000 ml @ 90 mls/hr IV .BY DURATION [facility] Rx#:[id number] Parenteral Electrolytes 1040 20 ml Potassium Acetate 24 meq Magnesium Sulfate gm 0.5 gm Sodium Phosphate 21 mmol In Amino Acids 5 %/Dextrose 20 % 1,000 ml @ 90 mls/hr IV .BY DURATION [facility] Rx#: [id number] Output: Urine 2920 2150 1650 Uretheral ([place]) 850 Stool 1500 1150 Other: Voiding Method Indwelling Catheter Indwelling Catheter Indwelling Catheter ABP, PAP, CO, CI - Last Documented Arterial Blood Pressure 138/57 - Labs CBC & Chem 7: 12/21/23 05:00 12/21/23 05:19 Labs: Abnormal Lab Results - Last 24 Hours (Table) 12/17/23 12/17/23 12/17/23 Range/Units 11:06 17:39 23:34 Hgb (13.0-17.5) gm/dL MCHC (31.0-37.0) g/dL RDW (11.5-15.5) % Carbon Dioxide (22-30) mmol/L Creatinine (0.66-1.25) mg/dL Glucose (74-99) mg/dL POC Glucose (mg/dL) 144 H 113 H 116 H (70-110) mg/dL Calcium (8.4-10.2) mg/dL Triglycerides (0.00-149.00) mg/dL 12/18/23 12/18/23 12/19/23 Range/Units 00:20 05:58 12:22 Hgb (13.0-17.5) gm/dL MCHC (31.0-37.0) g/dL RDW (11.5-15.5) % Carbon Dioxide (22-30) mmol/L Creatinine (0.66-1.25) mg/dL Glucose (74-99) mg/dL POC Glucose (mg/dL) 123 H 116 H 116 H (70-110) mg/dL Calcium (8.4-10.2) mg/dL Triglycerides (0.00-149.00) mg/dL 12/20/23 12/21/23 12/21/23 Range/Units 00:19 05:00 05:19 Hgb 11.7 L (13.0-17.5) gm/dL MCHC 29.4 L (31.0-37.0) g/dL RDW 16.7 H (11.5-15.5) % Carbon Dioxide 33 H (22-30) mmol/L Creatinine 0.31 L (0.66-1.25) mg/dL Glucose 111 H (74-99) mg/dL POC Glucose (mg/dL) 113 H (70-110) mg/dL Calcium 8.3 L (8.4-10.2) mg/dL Triglycerides (0.00-149.00) mg/dL 12/21/23 12/21/23 Range/Units 05:19 11:39 Hgb (13.0-17.5) gm/dL MCHC (31.0-37.0) g/dL RDW (11.5-15.5) % Carbon Dioxide (22-30) mmol/L Creatinine (0.66-1.25) mg/dL Glucose (74-99) mg/dL POC Glucose (mg/dL) 123 H (70-110) mg/dL Calcium (8.4-10.2) mg/dL Triglycerides 185.00 H (0.00-149.00) mg/dL
[2023-12-21 17:31] LABS: Glucose,Whole Blood 116 mg/dL (70-110)
[2023-12-22 00:15] LABS: Glucose,Whole Blood 151 mg/dL (70-110)
[2023-12-22 06:16] LABS: Glucose,Whole Blood 129 mg/dL (70-110)
[2023-12-22 06:41] LABS: African American GFR (CKD) >90 (>60 ml/min/1.73 sqM); Anion Gap 2 mmol/L; Blood Urea Nitrogen 18 mg/dL (9-20); Calcium 8.7 mg/dL (8.4-10.2); Carbon Dioxide 40 mmol/L (22-30); Chloride 93 mmol/L (98-107); Glucose 129 mg/dL (74-99); Magnesium 1.8 mg/dL (1.6-2.3); Non-African American GFR(CKD) >90 (>60 ml/min/1.73 sqM); Potassium 4.4 mmol/L (3.5-5.1); Sodium 135 mmol/L (137-145)
[2023-12-22 12:07] LABS: Glucose,Whole Blood 140 mg/dL (70-110)
--- NOTE | 2023-12-22 14:16 | P.PN ---
Subjective Progress Note Date: 12/22/23 This is a pleasant 48 years old male with past medical history of Crohn disease complicated with bowel perforation requiring ileostomy, also has 2 fistula in his anterior abdominal Wall, patient also has left upper chest portal to receive TPN, patient also able to take oral feeding. 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 He has history of respiratory failure requiring tracheostomy insertion with subsequent removal Patient lives at home with his 2 sons. Information were obtained with the help of his mother at bedside. Patient presents to the hospital at this time because of respiratory difficulty, he came to emergency room yesterday for the same reason and he was discharged home, he was noticed to have hypoxia with coughing but that is improved yesterday. At home he have recurrence of his symptoms so he decided to come to emergency room today. Patient somewhat drowsy and could not participate in history however has per mother he is drowsy because of lack of sleep and he is usually more awake. Patient denies chest pain, no abdominal pain, he has ileostomy bag in place with some loose stool, as per mother at bedside this is his normal consistency. He has external urinary catheter. Denies dysuria or urgency. Both legs looks weak, has right BKA, no swelling or cellulitis. Patient is afebrile, he was hypoxic 88% on room air. Slightly tachypneic around 20. He has unremarkable CBC, BMP, liver enzymes, troponin x 1 less than 0.012. proBNP is 21. Influenza A and type B, RSV, SARS (coronavirus) are undetected D-dimer is negative at 0.45 EKG showing sinus rhythm at [address]-T changes Chest x-ray showing low volume but no acute process per radiologist Venous pH is low normal at 7.3, bicarb is elevated 34 and pCO2 is elevated at 62. Patient received prednisone 40 mg and Zithromax prior to hospitalization. 12/13 Patient developed complete collapse of the right lung, which is apparent on the chest x-ray this morning and he is developing more hypoxia he was saturation 77 and 5 L, currently he is kept on BiPAP He has no fever Blood pressure stable 127/64 Patient started on Zosyn also he is on IV Solu-Medrol 40 mg twice daily He is on a Protonix and therapeutic dose of Lovenox Pro- Calcitonin is low at 0.16 pH is low with high pCO2. Patient is going to be transferred to the ICU 12/14 Patient currently remains in the ICU intubated and sedated, also he required a small dose of Levophed for blood pressure support He status post bronchoscopy second 1 today, about 100 milliliter of mucus secretions pulled out. He has evidence of tracheomalacia as well but patent trachea. Bronchoscopy procedure reviewed with pulmonary team He is currently covered with IV vancomycin and Zosyn Cultures are still pending Chest x-ray showing endotracheal tube in position, right lower lobe infiltrate for pneumonia He is also on therapeutic dose of Lovenox continued from home 12/15 Patient remains in the ICU intubated and sedated with pulmonary/critical care team following closely and help with vent management Currently he is also requiring pressors, Levophed at 0.09 mcg/kg/min He is on IV vancomycin and Zosyn S/p bronchoscopy yesterday Sputum culture is growing haemophilus influenzae He is on home dose of Lovenox for 80 mg twice daily He is on normal saline 75 L/h 12/17/2023 Patient is MICU on mechanical ventilator. Patient remains on norepinephrine and is sedated with propofol. On IV hydration with normal saline 75/h. Chest x-ray showed stable portable chest. Clinical correlation and follow-up on resolution is recommended. Laboratory data showed WBC 5.6 hemoglobin 11.9 and platelets 166 sodium 137 potassium 3.5 chloride 112 bicarb is 21 BUN 4 and creatinine 0.37 and blood sugar 120 and magnesium 1.6. TSH within normal limits. Patient is being continued on antibiotics in the form of Zosyn. Sputum culture showed haemophilus influenza. 12/18/2023 Patient is in the MICU. Currently on mechanical ventilator. Patient is also on norepinephrine drip which is being slowed down. Chest x-ray today showed stable portable chest. Clinical correlation and follow-up until resolution is recommended. Patient is being continued on antibiotics and home Zosyn. Also on vancomycin. Laboratory data showed WBC 4.2 hemoglobin 11.4 and platelets 176 sodium 140 potassium 3.2 chloride 112 bicarb is 24 BUN 14 creatinine 0.29 and blood sugar 118 and magnesium 1.8. 12/19/2023 Patient is in the MICU currently on pressure support. Patient is otherwise awake alert and oriented. No complaints of chest pain or shortness of breath. No nausea or vomiting. Patient on TPN. Continued on antibiotics above vancomycin and Zosyn. Chest x-ray today showed stable portable chest. Clinical correlation and follow-up on resolution is recommended. Laboratory data showed WBC 3.8 hemoglobin 10.9 and platelets 159 sodium 138 potassium 3.7 chloride 113 bicarb is 26 BUN 7 creatinine 0.33 and blood sugar 100 and phosphorus 2.3 AST 15 ALT 13 alk phos 69 albumin 2.3 12/20/2023 Patient is seen in the MICU. Patient was on BiPAP yesterday and was extubated later. Awake alert and oriented currently requiring oxygen at 6 L via nasal cannula. Chest x-ray today showed stable chest. Denied any chest pain or worsening shortness of breath. No cough or sputum production. Stool is noted in the ostomy output. Urine output is adequate. Laboratory data showed WBC 3.4 hemoglobin 11.3 and platelets 161 sodium 137 potassium 3.7, bicarb 28 BUN 12 and creatinine 0.36 and blood sugar 136 and calcium 7.9 and magnesium 1.7. Patient remains on antibiotics in the form of vancomycin and Zosyn. Nasal screen showed MRSA and sputum culture showed haemophilus influenza. Critical care team is on board. 12/20. Patient seen and examined. Patient was transferred out of ICU this morning. Currently on 3 S. Patient stated he feels much better. Family at the bedside. Breathing is improved. 12/21. Patient seen and examined. Vital signs this morning temperature 90.1, heart rate 91, blood pressure 114/67. Labs sodium 130, potassium 4.4, BUN 18, creatinine 0.44 REVIEW OF SYSTEMS: CONSTITUTIONAL: No fever, no malaise,. CARDIOVASCULAR: No chest pain, no palpitations, no syncope. PULMONARY: No shortness of breath, no cough, GASTROINTESTINAL: No diarrhea, no nausea, no vomiting, no abdominal pain. NEUROLOGICAL: No headaches, no weakness, PHYSICAL EXAMINATION: GENERAL: The patient is alert and oriented x3, ill looking HEENT: Pupils are round and equally reacting to light. EOMI. No scleral icterus. No conjunctival pallor. Normocephalic, atraumatic. No pharyngeal erythema. No thyromegaly. CARDIOVASCULAR: S1 and S2 present. No murmurs, rubs, or gallops. PULMONARY: Diminished breath sound the bases bilaterally ABDOMEN: Soft, nontender, nondistended, normoactive bowel sounds ostomy MUSCULOSKELETAL: No joint swelling or deformity. EXTREMITIES: No cyanosis, clubbing, or pedal edema. NEUROLOGICAL: Gross neurological examination did not reveal any focal deficits. SKIN: No rashes. Assessment and plan Right lower lobe pneumonia, complicated by right lung collapse secondary to mucous plug status post bronchoscopy on 12/13 and 12/14. Sputum culture showed haemophilus influenza. Nasal culture showed MRSA. Septic shock secondary to above Acute hypoxic hypercapnic respiratory failure. Was on mechanical ventilator, changed to pressure support. Extubated on 12/19/2023. 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 Continue same treatment. Continue with symptomatic treatment. Resume home medication. Monitor labs and vitals. DVT and GI prophylaxis. Further recommendations as per clinical course of the patient Dictation was produced using [employer] dictation software. please excuse any gra mmatical, word or spelling errors. Objective - Vital Signs Vital signs: Vital Signs Temp 98.1 F 12/22/23 04:00 Pulse 87 12/22/23 09:29 Resp 20 12/22/23 04:00 BP 114/67 12/22/23 04:00 Pulse Ox 96 12/22/23 09:19 FiO2 50 12/20/23 08:07 Intake & Output 12/21/23 12/22/23 12/22/23 18:59 06:59 18:59 Intake Total 1543 0 Output Total 4250 2550 Balance -5635 -2550 Intake: IV 443 Mvi, Adult No.4 with Vit 360 K 10 ml Trace (Conc-1Ml/ Dose) 1 ml Parenteral Electrolytes 20 ml Potassium Acetate 24 meq Magnesium Sulfate gm 0.5 gm Sodium Phosphate 15 mmol In Amino Acids 5 %/ Dextrose 20 % 1,000 ml @ 90 mls/hr IV .[id number] [facility] Rx#:[id number] Normal Saline Pressure 3 Bag Sodium Chloride 0.9% 1, 80 000 ml @ 20 mls/hr IV . Q24H [facility] Rx#:[id number] Intake, IV Titration 1040 Amount Parenteral Electrolytes 1040 20 ml Potassium Acetate 24 meq Magnesium Sulfate gm 0.5 gm Sodium Phosphate 21 mmol In Amino Acids 5 %/Dextrose 20 % 1,000 ml @ 90 mls/hr IV .BY DURATION ANNIE Rx#: [id number] Oral 60 0 Output: Urine 2225 1600 Uretheral ([place]) 1425 Stool 2025 950 Other: Voiding Method Indwelling Catheter Indwelling Catheter ABP, PAP, CO, CI - Last Documented Arterial Blood Pressure 138/57 - Labs CBC & Chem 7: 12/21/23 05:00 12/22/23 05:39 Labs: Abnormal Lab Results - Last 24 Hours (Table) 12/21/23 12/21/23 12/21/23 Range/Units 05:19 11:39 17:29 Sodium (137-145) mmol/L Chloride (98-107) mmol/L Carbon Dioxide (22-30) mmol/L Creatinine (0.66-1.25) mg/dL Glucose (74-99) mg/dL POC Glucose (mg/dL) 123 H 116 H (70-110) mg/dL Triglycerides 185.00 H (0.00-149.00) mg/dL 12/22/23 12/22/23 12/22/23 Range/Units 00:13 05:39 06:14 Sodium 135 L (137-145) mmol/L Chloride 93 L (98-107) mmol/L Carbon Dioxide 40 H (22-30) mmol/L Creatinine 0.44 L (0.66-1.25) mg/dL Glucose 129 H (74-99) mg/dL POC Glucose (mg/dL) 151 H 129 H (70-110) mg/dL Triglycerides (0.00-149.00) mg/dL Microbiology - Last 24 Hours (Table) 12/16/23 12:36 Blood Culture - Final Blood
--- NOTE | 2023-12-22 14:41 | P.PN ---
Subjective Progress Note Date: 12/22/23 Principal diagnosis: Acute hypoxic respiratory failure secondary to right lung pneumonia secondary to haemophilus influenza. This is a 48-year-old male patient, brought into the hospital because of hypoxemia that was noted at home. The patient is not having any worsening short ness of breath. No reported aspiration. Occasional cough and congestion. No significant sputum production. The patient has a very extensive past medical history. He is known to have previous history of Crohn's disease that has been complicated by bowel perforation for which the patient required a bowel resection and currently has an ileostomy. 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 Note that his course was rather complicated following his previous bowel surgery. The patient had prolonged ventilator dependent respiratory failure requiring intubation mechanical ventilation and subsequent tracheostomy tube insertion. The patient also required hemodialysis for renal failure and renal replacement therapy. Ultimately, dialysis has been discontinued as the patient renal function improved and the tracheostomy tube was also eliminated. 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 His last evaluation here in our hospital was and February 2023 and at that time, the patient came into us with generalized weakness and fatigue and he was treated for sepsis/bacteremia and the treatment was successful. He continues to have a port in his left anterior chest area through which she receives TPN to supplement his oral intake. His current white cell count at 6.3 with a heme of 13 and a platelet count of 152. Sodium is 138 with a potassium level of 4.7, BUN 16 with a creatinine of 0.33. His UA is negative. Viral screen is also negative. The patient's slightly lethargic. He is arousable and awake. He is currently on 3 L of oxygen by nasal cannula with pulse ox 93%. His chest x-ray shows chronic elevation of the right hemidiaphragm without any acute cardiopulmonary process. The patient has been maintained on anticoagulation on outpatient basis and he is on Lovenox 80 mg subcu every 12 hours. On 12/14/2023, the patient is being seen for a follow-up in the emergency department. The patient was slightly hypoxic and was admitted to the hospital for further investigation. Overnight, the patient's condition became worse. The patient had a repeat chest x-ray earlier this morning and the patient was found to have complete collapse of the right lung with volume loss. There was complete widening out of the right lung. Following that, the patient became progressively hypoxic. The patient had a blood gas that showed a pH of 7.28 wit h a pCO2 of 78 and pO2 of 63 consistent with an acute on top of chronic respiratory acidosis with significant hypoxemia. Based on that, the patient was placed on a BiPAP at a pressure of 12 over 6 cm of water. Subsequently, the oxygenation improved and the patient got transferred to the ICU. Prior to next discussion with the patient. The patient was awake and alert and he seemed to be able to make his own medical decisions. I also contacted the family members and discussed with them the findings. The findings are consistent with mucous plugging and volume loss and a complete atelectasis of the right lung. The patient will obviously need to be supported with mechanical ventilator and s ubsequently have a bronchoscopy done regarding the right lung atelectasis. Patient was agreeable to that. I initially attempted to do the bronchoscope under conscious sedation. Give the patient a total of 4 mg of Versed. However, following that, I noted that the patient became progressively more hypoxic while being on high flow nasal oxygen and 100% nonrebreather facemask. Based on that, I intubated the patient. During the intubation process, I noted that it was difficult to push and the #8 orotracheal tube. 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 Nevertheless, I was able to pass the ET tube to the level of the tracheal stenosis. There was adequate ventilation at that point. I also inserted the bronchoscope and therapeutic airway suctioning was done with copious amount of thick purulent creamy respiratory secretions were identified in the right lower lobe and right mainstem bronchus. Total amount of volume aspirated from the right lung was in the order of 40 cc of purulent material. The patient was started on a combination of Zosyn and vancomycin. Currently is on propofol at 20 mcg/kg/min. Hemodynamically stable. Postprocedure chest x-ray done showed marked improvement in aeration of the right lung with marked reduction in the right lung atelectasis. There was interval development of a small left-sided pulmonary infiltrates. ET tube was seen in the upper tracheal area. Unable to push in the ET tube any further due to underlying tracheal stenosis. Hemodynamically stable at this point in time. Family has been informed of the changes. The white cell count from this morning is at 10 with a hemoglobin 15 and a platelet count of 155. Sodium is at 138, potassium is 4.4, BUN 21 with a creatinine of 0.36. Currently intubated on the mechanical ventilator. 12/15/2023, patient is being seen for a follow-up. The patient is arousable while being on propofol which is running at 50 mcg/kg/min. He is able to communicate even while being on sedation. As mentioned, he was intubated and placed on mechanical ventilator and copious amounts of mucous plugs was aspirated from the right lung yesterday. This was done following the bronchoscopy. Cultures are still pending for now although there is a preliminary sputum culture that showed haemophilus influenza. The patient is currently on a combination Zosyn and vancomycin. Meanwhile, the patient remains on mechanical ventilator assist-control mode with rate of 24, tidal volume of 400, FiO2 of 60% with a PEEP of 5. Chest x-ray still showing atelectatic changes right lung base. There is improved aeration of the right lung in general. The blood gas showed a pH of 7.5 with a pCO2 of 45 and a pO2 of 75. The blood work shows a white cell count of 13.4 with a hemoglobin of 12.4 and platelet count of 196. Sodium is 136, potassium is at 4.5, BUN is 18 with a creatinine of 0.35. The patient is also on IV fluids with normal saline at rate of 75 cc an hour. He is on norepinephrine at 0.04 mcg/kg/min. No other significant events overnight. Output from the abdominal fistulas and ileostomy has been noted. Later today on 12/16/23, patient remains in the ICU, intubated and mechanically ventilated. He is on assist-control rate of 24 tidal volume 400 FiO2 50% and PEEP of 5 ABG showed a pO2 of 82 pCO2 43 pH of 7.39. Patient remains on norepinephrine at 0.09 mcg/kg/min on propofol at 60 mcg/kg/min he is also on TPN. Patient is receiving vancomycin and Zosyn for what seems to be haemophilus influenza pneumonia, may consider stopping vancomycin and continue Zosyn. Blood cultures are pending, cultures from BAL are pending. Procalcitonin level is 0.85. Chest x-ray continues to show extensive disease involving the right lower lobe and left lower lobe. WBC count is 8 hemoglobin 11.9. Potassium is low at 2.6 being addressed as per protocol. Procalcitonin level is 0.85. C-reactive protein 13.2. According to the nurses patient was appropriate off sedation earlier this morning, but looking at his overall picture and his clinical findings on examination, patient is not ready for weaning and extubation. Patient was evaluated today on 12/17/2023, remains in the ICU, intubated and mechanically ventilated. Patient is on assist-control rate of 24 tidal volume 400 FiO2 60% PEEP increased to 8. ABG not done today, it is pending.WBC count is 5.6 hemoglobin 11.9. Basic metabolic profile is normal BUN is 4 creatinine 0.37 patient remains on vancomycin and Zosyn, procalcitonin level is 0.85 chest x-ray shows improvement in bibasilar opacities. Patient is very norepinephrine at 0.09 mcg/kg/min he is also on TPN at 30 cc/h propofol at 70 mcg/kg/min and IV fluids 75 cc/h 0.9 normal saline. His sputum came back positive for H. influenzae and MRSA. Patient again is on Zosyn and vancomycin. I am planning today to give the patient a weaning trial, and I did, few hours later I was notified that the patient's weaning parameters where very poor off propofol, hence I recommended that he goes back on propofol, and he is not ready for weaning. Patient evaluated today on 12/18/2023, patient remains in the ICU, intubated mechanically ventilated, patient was on norepinephrine until earlier today, he is to be on norepinephrine at 0.03 mcg/kg/min, remains on assist-control rate of 24 tidal volume 400 FiO2 50% and PEEP of 8. ABG today showed a pO2 of 73 pCO2 47 pH of 7.38. Hence no changes were made in his ventilator settings. I did establish a left brachial arterial line in this patient for hemodynamic dory toring and blood gases monitoring on a daily basis. Patient had difficult access, he does have a left subclavian central line and now he has a left brachial arterial line. Patient is on TPN he is also on propofol and he is on IV fluid at 20 cc/h. Remains on vancomycin and Zosyn for haemophilus influenza and MRSA in the sputum. Today I plan to give the patient a weaning trial again I would like to switch him to pressure support and CPAP, and I would like to see if the patient tolerates coming off propofol and use Precedex instead. Chest x- ray continues to show some right basilar airspace disease, improved compared to his initial chest x-ray on admission Patient was evaluated today on 12/19/2023, is in the ICU, intubated and mechanically ventilated however the patient has been on pressure support of 12 and CPAP over the last 24 hours, seems to be tolerating that quite well. ABG this morning showed a pO2 of 70 pCO2 42 pH of 7.42 and this was on 50% with a pressure support of 12/6/50% pressures was cut down to 10 and he continued to have adequate tidal volumes patient seems to be very awake, he is on Precedex off propofol off other sedatives, remains on vancomycin and Zosyn his TPN is at 50 cc/h, reviewed his chest x-ray showed evidence of edema and the patient was given a dose of Lasix with excellent urine output after the Lasix given.WBC count is 3.8 hemoglobin is 10.9.Basic metabolic profile is normal BUN is 7 creatinine 0.33 Patient was seen today on 12/20/2023, remains in the ICU, he was extubated yesterday uneventfully. However required to go on BiPAP at night since his pulmonary status is marginal. To have significant airspace disease and possibly pulmonary edema involving the right lung mostly. Patient remains on antibiotics in the form of Zosyn and on vancomycin. Remains on diuretics, patient has significant urine output this morning hence I held back on diuretics today.Patient is comfortable, he is on BiPAP, 12/6/50% and I cut it down to 45% and remains on TPN. WBC count is 3.5 hemoglobin 11.3, Basic metabolic profile is normal BUN is 12 creatinine 0.36 Patient was seen today on 12/21/2023, remains in the ICU on 4 L nasal cannula tolerated the extubation very well over the last 2 days, patient is gradually improving, clinically better. Procalcitonin today 0.19, chest x-ray continues to show some interstitial edema especially on the right side, patient is improving with Lasix, more Lasix was given today.Antibiotics have been discontinued today WBC count is 4.3 hemoglobin 11.7 basic metabolic profile is normal renal profile is normal Patient was seen today on 12/22/2023, remains on 4 L nasal cannula, patient is now out of the ICU on the cardiac floor/3 S., gradually getting better, not in any distress, feels much better today compared to how he felt when he came in. Remains on antibiotics remains on bronchodilators, patient has a chronic PICC line that was removed on this admission and had a central line placed, the plan is to replace his PICC line and this will be done hopefully tomorrow. Then his central line will be discontinued labs today showed relatively normal electrolytes normal renal profile. Patient was treated for MRSA and for haemophilus influenza positive cultures and antibiotics have been discontinued Objective - Vital Signs Vital signs: Vital Signs Temp 97.6 F 12/22/23 12:00 Pulse 82 12/22/23 12:31 Resp 16 12/22/23 12:00 BP 121/77 12/22/23 12:00 Pulse Ox 96 12/22/23 09:19 FiO2 50 12/20/23 08:07 Intake & Output 12/21/23 12/22/23 12/22/23 18:59 06:59 18:59 Intake Total 1543 0 Output Total 4250 2550 950 Balance -2707 -2550 -950 Intake: IV 443 Mvi, Adult No.4 with Vit 360 K 10 ml Trace (Conc-1Ml/ Dose) 1 ml Parenteral Electrolytes 20 ml Potassium Acetate 24 meq Magnesium Sulfate gm 0.5 gm Sodium Phosphate 15 mmol In Amino Acids 5 %/ Dextrose 20 % 1,000 ml @ 90 mls/hr IV .[id number] ANNIE Rx#:[id number] Normal Saline Pressure 3 Bag Sodium Chloride 0.9% 1, 80 000 ml @ 20 mls/hr IV . Q24H ANNIE Rx#:[id number] Intake, IV Titration 1040 Amount Parenteral Electrolytes 1040 20 ml Potassium Acetate 24 meq Magnesium Sulfate gm 0.5 gm Sodium Phosphate 21 mmol In Amino Acids 5 %/Dextrose 20 % 1,000 ml @ 90 mls/hr IV .BY DURATION ANNIE Rx#: [id number] Oral 60 0 Output: Urine 222 1600 950 Uretheral ([place]) 1425 Stool 2024 Other: Voiding Method Indwelling Catheter Indwelling Catheter Indwelling Catheter ABP, PAP, CO, CI - Last Documented Arterial Blood Pressure 138/57 - Exam General revealed a 48-year-old white male, not in distress, on 4 L nasal cannula Head exam was generally normal. There was no scleral icterus or corneal arcus. Mucous membranes were moist. Neck supple. Full range of motion. No adenopathy thyromegaly or neck vein distention. old tracheostomy scar is noted over the anterior lower area of the neck. Left subclavian central line is noted Cardiovascular: Normal S1-S2, no S3 gallop, no murmur. Lungs, diminished breath sound bilaterally no rhonchi no wheezes Abdomen: Midline dressing from previous surgery. No bowel sounds noted. The abdomen was soft, non-tender, and without masses, organomegaly, . The patient has a midline abdominal incision which is dry clean and intact and it is well- healed. The patient has an ileostomy and the patient also has anterior abdominal wall fistula which is draining Extremities are intact. No cyanosis. Clubbing noted. The patient has a right [id number] amputation. 1+ edema Skin is without rash or lesion. Patient does have right below-knee amputation Neurologic: Awake alert and oriented x 3 no gross focal deficit is except for chronic right-sided weakness - Labs CBC & Chem 7: 12/21/23 05:00 12/22/23 05:39 Labs: Abnormal Lab Results - Last 24 Hours (Table) 12/21/23 12/22/23 12/22/23 Range/Units 17:29 00:13 05:39 Sodium 135 L (137-145) mmol/L Chloride 93 L (98-107) mmol/L Carbon Dioxide 40 H (22-30) mmol/L Creatinine 0.44 L (0.66-1.25) mg/dL Glucose 129 H (74-99) mg/dL POC Glucose (mg/dL) 116 H 151 H (70-110) mg/dL 12/22/23 12/22/23 Range/Units 06:14 12:05 Sodium (137-145) mmol/L Chloride (98-107) mmol/L Carbon Dioxide (22-30) mmol/L Creatinine (0.66-1.25) mg/dL Glucose (74-99) mg/dL POC Glucose (mg/dL) 129 H 140 H (70-110) mg/dL Microbiology - Last 24 Hours (Table) 12/16/23 12:36 Blood Culture - Final Blood Assessment and Plan Assessment: Impression: Acute on chronic hypoxic respiratory failure requiring intubation mechanical ventilation. Patient was extubated on 12/19/2023, tolerating nasal cannula well for now. 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 from previous tracheostomy History of Crohn's disease Right hemidiaphragm elevation/chronic Acute sepsis and previous history of sepsis related to Serratia marcescens History of CVA with right-sided neurologic deficit History of DVT History of right below-knee amputation History of Crohn's disease and multiple abdominal surgeries with enterocutaneous fistulas and history of ileostomy History of cardiac arrest in 2021 Obesity Recommendation: Continue oxygen and titrate accordingly Continue diuretics Continue blood pressure meds Continue nutritional support, patient is chronically on TPN Continue GI and DVT prophylaxis, on Lovenox 80 mg SQ twice daily Long-term prognosis remains poor and guarded especially with his multiple morbidities Patient will likely need placement/rehab Will continue to follow Time with Patient: Less than 30
[2023-12-22] MEDS: 1: MVI, ADULT NO.4 WITH VIT K 10 ML, TRACE (CONC-1ML/DOSE) 1 ML, PARENTERAL ELECTROLYTES IV SCH (16:31)
[2023-12-22 18:03] LABS: Glucose,Whole Blood 131 mg/dL (70-110)
[2023-12-22] MEDS: HYDROcodone/APAP 5-325MG 1 EACH TAB PO PRN (18:30)
[2023-12-22 23:57] LABS: Glucose,Whole Blood 175 mg/dL (70-110)
[2023-12-23 05:46] LABS: Glucose,Whole Blood 169 mg/dL (70-110)
[2023-12-23 07:21] LABS: African American GFR (CKD) >90 (>60 ml/min/1.73 sqM); Anion Gap 3 mmol/L; Blood Urea Nitrogen 21 mg/dL (9-20); Calcium 8.8 mg/dL (8.4-10.2); Carbon Dioxide 39 mmol/L (22-30); Chloride 94 mmol/L (98-107); Glucose 183 mg/dL (74-99); Magnesium 2.1 mg/dL (1.6-2.3); Non-African American GFR(CKD) >90 (>60 ml/min/1.73 sqM); Phosphorus 2.7 mg/dL (2.5-4.5); Potassium 3.8 mmol/L (3.5-5.1); Sodium 136 mmol/L (137-145)
[2023-12-23] MEDS: FAT EMULSION 20% 250 ML in EMPTY BAG 1 BAG IV SCH (09:19)
[2023-12-23 11:33] LABS: Glucose,Whole Blood 204 mg/dL (70-110)
--- NOTE | 2023-12-23 11:33 | P.GSCN ---
History of Present Illness Consult date: 12/23/23 Reason for Consult: Vivas replacement,-year-old Requesting physician: Alyssa Hernandez History of present illness: This is a pleasant 48-year-old male with multiple comorbidities including obesity, cardiac arrest in 2021, history of stroke with left hemiparesis, DVT, Crohn's disease with colectomy and diverting ileostomy and TPN for nutrition presented to the emergency department on 12/13/2023 with complaints of shortness of breath and cough. He is been admitted now for 7 days for acute hypoxic respiratory failure who required intubation and mechanical ventilation, patient extubated on 12/19/2023, sepsis and pneumonia. Apparently during this hospitalization he mentioned concerns about his Vivas being in place for about a year now. He states it was placed at [facility], vascular surgery was consulted for replacement of Vivas catheter. Patient denies any problems with the Vivas, no redness, concerns for infection, states that it overall functions well. He states he was not told he needed to follow-up with [facility] regarding any further evaluation or replacement. Review of Systems A 14 point review systems was completed all pertinent positives and negatives as stated in the HPI. Past Medical History Past Medical History: CVA/TIA, Deep Vein Thrombosis (DVT) Additional Past Medical History / Comment(s): Progressing left upper thigh pain and swelling and left leg weakness. 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 Crohns. Ostomy Bag placed in 09/2021. History of Any Multi-Drug Resistant Organisms: Other MDRO Year Discovered:: 12/14/23 MDRO Source:: nasal Past Surgical History: Cholecystectomy, Orthopedic Surgery Additional Past Surgical History / Comment(s): Arm surgery, right leg below knee amputation, ostomy (2021) Past Anesthesia/Blood Transfusion Reactions: No Reported Reaction Past Psychological History: No Psychological Hx Reported Smoking Status: Former smoker Past Alcohol Use History: None Reported Past Drug Use History: None Reported - Past Family History Father Additional Family Medical History / Comment(s): DAD IN HIS TWENTIES - CAUSE UNKNOWN. Mother Family Medical History: Diabetes Mellitus Brother(s) Family Medical History: Cancer Additional Family Medical History / Comment(s): Kidney cancer as a baby. Medications and Allergies Home Medications Medication Instructions Recorded Confirmed Type Enoxaparin [Lovenox] 80 mg SQ BID@0900,2100 07/07/22 12/13/23 History Pantoprazole [Protonix] 40 mg PO DAILY@89907/07/22 12/13/23 History Albuterol Sulfate [Albuterol 1 - 2 puff PO RT-Q4H PRN 09/10/22 12/13/23 History Sulfate Hfa] Loperamide HCl [Loperamide] 4 mg PO QID@08,12,16,20 11/10/22 12/13/23 History Albuterol Inhaler [Ventolin Hfa 2 puff INHALATION QID PRN #8 gm 12/12/23 12/13/23 Rx Inhaler] Ferrous Sulfate [Feosol] 325 mg PO DAILY@89912/12/23 12/13/23 History Heparin Sodium,Porcine/Pf [Heparin 1 dose IV DAILY PRN 12/12/23 12/13/23 History 500 Unit/5 ml (100/ml) Flush] Metoprolol Tartrate [Lopressor] 12.5 mg PO BID@899,209912/12/23 12/13/23 History Omeprazole [PriLOSEC] 40 mg PO DAILY #30 cap 12/12/23 12/13/23 Rx Sodium Chloride 0.9% [Saline 0.9%] 10 ml IV DAILY PRN 12/12/23 12/13/23 History Vitamin A 2,400 mcg PO DAILY@89912/12/23 12/13/23 History traZODone HCL [Desyrel] 50 mg PO HS PRN 12/12/23 12/13/23 History Azithromycin [Zithromax] 0 mg PO DIRECTED #6 tab 12/13/23 Rx Cholecalciferol (Vitamin D3) 1,250 mcg PO MOTH 12/13/23 12/13/23 History [Vitamin D3 (1250 Mcg = 50,000 Iu)] Promethazine 6.25MG/5Ml [Phenergan 5 ml PO Q4HR PRN #120 ml 12/13/23 Rx Syrup] Allergies Allergy/AdvReac Type Severity Reaction Status Date / Time No Known Allergies Allergy Verified 12/13/23 08:30 Surgical - Exam Vital Signs Temp Pulse Resp BP Pulse Ox 98.2 F 94 20 153/80 96 12/13/23 02:29 12/13/23 02:29 12/13/23 02:29 12/13/23 02:29 12/13/23 02:29 General appearance: The patient is alert, oriented, appears in no acute distress. Morbidly obese. HET: Head is normocephalic and atraumatic. Pupils are equal and reactive. Neck: Supple. Chest: Left upper chest wall with Vivas catheter in place Heart: Regular. Lungs: Equal expansion, normal respiratory effort. Abdomen: Soft, nontender, nondistended. Extremities: Normal skin color and turgor. Neurological: Residual left-sided weakness. Results - Labs 12/21/23 05:00 12/23/23 06:42 Abnormal Lab Results - Last 24 Hours (Table) 12/22/23 12/22/23 12/22/23 Range/Units 12:05 18:00 23:55 Sodium (137-145) mmol/L Chloride (98-107) mmol/L Carbon Dioxide (22-30) mmol/L BUN (9-20) mg/dL Creatinine (0.66-1.25) mg/dL Glucose (74-99) mg/dL POC Glucose (mg/dL) 140 H 131 H 175 H (70-110) mg/dL 12/23/23 12/23/23 Range/Units 05:45 06:42 Sodium 136 L (137-145) mmol/L Chloride 94 L (98-107) mmol/L Carbon Dioxide 39 H (22-30) mmol/L BUN 21 H (9-20) mg/dL Creatinine 0.44 L (0.66-1.25) mg/dL Glucose 183 H (74-99) mg/dL POC Glucose (mg/dL) 169 H (70-110) mg/dL Diabetes panel 12/23/23 Range/Units 06:42 Sodium 136 L (137-145) mmol/L Potassium 3.8 (3.5-5.1) mmol/L Chloride 94 L (98-107) mmol/L Carbon Dioxide 39 H (22-30) mmol/L BUN 21 H (9-20) mg/dL Creatinine 0.44 L (0.66-1.25) mg/dL Glucose 183 H (74-99) mg/dL Calcium 8.8 (8.4-10.2) mg/dL Calcium panel 12/23/23 Range/Units 06:42 Calcium 8.8 (8.4-10.2) mg/dL Phosphorus 2.7 (2.5-4.5) mg/dL Pituitary panel 12/23/23 Range/Units 06:42 Sodium 136 L (137-145) mmol/L Potassium 3.8 (3.5-5.1) mmol/L Chloride 94 L (98-107) mmol/L Carbon Dioxide 39 H (22-30) mmol/L BUN 21 H (9-20) mg/dL Creatinine 0.44 L (0.66-1.25) mg/dL Glucose 183 H (74-99) mg/dL Calcium 8.8 (8.4-10.2) mg/dL Adrenal panel 12/23/23 Range/Units 06:42 Sodium 136 L (137-145) mmol/L Potassium 3.8 (3.5-5.1) mmol/L Chloride 94 L (98-107) mmol/L Carbon Dioxide 39 H (22-30) mmol/L BUN 21 H (9-20) mg/dL Creatinine 0.44 L (0.66-1.25) mg/dL Glucose 183 H (74-99) mg/dL Calcium 8.8 (8.4-10.2) mg/dL Assessment and Plan Assessment: 1. Acute hypoxic respiratory failure requiring intubation, resolving 2. Pneumonia, haemophilus influenza 3. Sepsis 4. History of bacteremia 5. Crohn's disease with history of perforation requiring colectomy and ileostomy, on TPN for nutrition support with Vivas catheter Plan: Patient with Vivas catheter in place without any signs of infection, no bact eremia, no concerns for malfunctioning. There is no indication that his Vivas catheter needs to be removed and no limitation on duration of use if functioning fine. No plans on replacement of Vivas catheter. Continue medical management. Patient can follow-up with vascular surgery outpatient if any concerns or malfunctions with Vivas catheter. Thank you for this consultation. The impression and plan of care has been dictated as directed. Dr. Medina I performed a history and examination of this patient, discussed the same with the dictator. I agree with the dictator's note ,documented as a scribe. Any additional findings or plans will be noted.
[2023-12-23] MEDS: INSULIN ASPART (NovoLOG) 100 UNIT/ML VIAL SQ SCH (12:30)
--- NOTE | 2023-12-23 12:37 | P.PN ---
Subjective Progress Note Date: 12/23/23 This is a pleasant 48 years old male with past medical history of Crohn disease complicated with bowel perforation requiring ileostomy, also has 2 fistula in his anterior abdominal Wall, patient also has left upper chest portal to receive TPN, patient also able to take oral feeding. 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 He has history of respiratory failure requiring tracheostomy insertion with subsequent removal Patient lives at home with his 2 sons. Information were obtained with the help of his mother at bedside. Patient presents to the hospital at this time because of respiratory difficulty, he came to emergency room yesterday for the same reason and he was discharged home, he was noticed to have hypoxia with coughing but that is improved yesterday. At home he have recurrence of his symptoms so he decided to come to emergency room today. Patient somewhat drowsy and could not participate in history however has per mother he is drowsy because of lack of sleep and he is usually more awake. Patient denies chest pain, no abdominal pain, he has ileostomy bag in place with some loose stool, as per mother at bedside this is his normal consistency. He has external urinary catheter. Denies dysuria or urgency. Both legs looks weak, has right BKA, no swelling or cellulitis. Patient is afebrile, he was hypoxic 88% on room air. Slightly tachypneic around 20. He has unremarkable CBC, BMP, liver enzymes, troponin x 1 less than 0.012. proBNP is 21. Influenza A and type B, RSV, SARS (coronavirus) are undetected D-dimer is negative at 0.45 EKG showing sinus rhythm at [address]-T changes Chest x-ray showing low volume but no acute process per radiologist Venous pH is low normal at 7.3, bicarb is elevated 34 and pCO2 is elevated at 62. Patient received prednisone 40 mg and Zithromax prior to hospitalization. 12/13 Patient developed complete collapse of the right lung, which is apparent on the chest x-ray this morning and he is developing more hypoxia he was saturation 77 and 5 L, currently he is kept on BiPAP He has no fever Blood pressure stable 127/64 Patient started on Zosyn also he is on IV Solu-Medrol 40 mg twice daily He is on a Protonix and therapeutic dose of Lovenox Pro- Calcitonin is low at 0.16 pH is low with high pCO2. Patient is going to be transferred to the ICU 12/14 Patient currently remains in the ICU intubated and sedated, also he required a small dose of Levophed for blood pressure support He status post bronchoscopy second 1 today, about 100 milliliter of mucus secretions pulled out. He has evidence of tracheomalacia as well but patent trachea. Bronchoscopy procedure reviewed with pulmonary team He is currently covered with IV vancomycin and Zosyn Cultures are still pending Chest x-ray showing endotracheal tube in position, right lower lobe infiltrate for pneumonia He is also on therapeutic dose of Lovenox continued from home 12/15 Patient remains in the ICU intubated and sedated with pulmonary/critical care team following closely and help with vent management Currently he is also requiring pressors, Levophed at 0.09 mcg/kg/min He is on IV vancomycin and Zosyn S/p bronchoscopy yesterday Sputum culture is growing haemophilus influenzae He is on home dose of Lovenox for 80 mg twice daily He is on normal saline 75 L/h 12/17/2023 Patient is MICU on mechanical ventilator. Patient remains on norepinephrine and is sedated with propofol. On IV hydration with normal saline 75/h. Chest x-ray showed stable portable chest. Clinical correlation and follow-up on resolution is recommended. Laboratory data showed WBC 5.6 hemoglobin 11.9 and platelets 166 sodium 137 potassium 3.5 chloride 112 bicarb is 21 BUN 4 and creatinine 0.37 and blood sugar 120 and magnesium 1.6. TSH within normal limits. Patient is being continued on antibiotics in the form of Zosyn. Sputum culture showed haemophilus influenza. 12/18/2023 Patient is in the MICU. Currently on mechanical ventilator. Patient is also on norepinephrine drip which is being slowed down. Chest x-ray today showed stable portable chest. Clinical correlation and follow-up until resolution is recommended. Patient is being continued on antibiotics and home Zosyn. Also on vancomycin. Laboratory data showed WBC 4.2 hemoglobin 11.4 and platelets 176 sodium 140 potassium 3.2 chloride 112 bicarb is 24 BUN 14 creatinine 0.29 and blood sugar 118 and magnesium 1.8. 12/19/2023 Patient is in the MICU currently on pressure support. Patient is otherwise awake alert and oriented. No complaints of chest pain or shortness of breath. No nausea or vomiting. Patient on TPN. Continued on antibiotics above vancomycin and Zosyn. Chest x-ray today showed stable portable chest. Clinical correlation and follow-up on resolution is recommended. Laboratory data showed WBC 3.8 hemoglobin 10.9 and platelets 159 sodium 138 potassium 3.7 chloride 113 bicarb is 26 BUN 7 creatinine 0.33 and blood sugar 100 and phosphorus 2.3 AST 15 ALT 13 alk phos 69 albumin 2.3 12/20/2023 Patient is seen in the MICU. Patient was on BiPAP yesterday and was extubated later. Awake alert and oriented currently requiring oxygen at 6 L via nasal cannula. Chest x-ray today showed stable chest. Denied any chest pain or worsening shortness of breath. No cough or sputum production. Stool is noted in the ostomy output. Urine output is adequate. Laboratory data showed WBC 3.4 hemoglobin 11.3 and platelets 161 sodium 137 potassium 3.7, bicarb 28 BUN 12 and creatinine 0.36 and blood sugar 136 and calcium 7.9 and magnesium 1.7. Patient remains on antibiotics in the form of vancomycin and Zosyn. Nasal screen showed MRSA and sputum culture showed haemophilus influenza. Critical care team is on board. 12/20. Patient seen and examined. Patient was transferred out of ICU this morning. Currently on 3 S. Patient stated he feels much better. Family at the bedside. Breathing is improved. 12/21. Patient seen and examined. Vital signs this morning temperature 90.1, heart rate 91, blood pressure 114/67. Labs sodium 130, potassium 4.4, BUN 18, creatinine 0.44 12/22. Patient seen and examined. Patient needs his PICC line replaced, vascular surgery consulted. REVIEW OF SYSTEMS: CONSTITUTIONAL: No fever, no malaise,. CARDIOVASCULAR: No chest pain, no palpitations, no syncope. PULMONARY: No shortness of breath, no cough, GASTROINTESTINAL: No diarrhea, no nausea, no vomiting, no abdominal pain. NEUROLOGICAL: No headaches, no weakness, PHYSICAL EXAMINATION: GENERAL: The patient is alert and oriented x3, ill looking HEENT: Pupils are round and equally reacting to light. EOMI. No scleral icterus. No conjunctival pallor. Normocephalic, atraumatic. No pharyngeal erythema. No thyromegaly. CARDIOVASCULAR: S1 and S2 present. No murmurs, rubs, or gallops. PULMONARY: Diminished breath sound the bases bilaterally ABDOMEN: Soft, nontender, nondistended,. Ostomy seen MUSCULOSKELETAL: No joint swelling or deformity. Right BKA EXTREMITIES: No cyanosis, clubbing, or pedal edema. NEUROLOGICAL: Gross neurological examination did not reveal any focal deficits. SKIN: No rashes. Assessment and plan Right lower lobe pneumonia, complicated by right lung collapse secondary to mucous plug status post bronchoscopy on 12/13 and 12/14. Sputum culture showed haemophilus influenza. Nasal culture showed MRSA. Septic shock secondary to above Acute hypoxic hypercapnic respiratory failure. Was on mechanical ventilator, changed to pressure support. Extubated on 12/19/2023. 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 Continue same treatment. Continue with symptomatic treatment. Resume home medication. Monitor labs and vitals. DVT and GI prophylaxis. Further recommendations as per clinical course of the patient Dictation was produced using [employer] dictation software. please excuse any grammatical, word or spelling errors. Objective - Vital Signs Vital signs: Vital Signs Temp 98 F 12/23/23 08:25 Pulse 84 12/23/23 09:48 Resp 17 12/23/23 08:25 BP 112/72 12/23/23 08:25 Pulse Ox 91 L 12/23/23 08:25 FiO2 50 12/20/23 08:07 Intake & Output 12/22/23 12/23/23 12/23/23 18:59 06:59 18:59 Intake Total 0 Output Total 1700 2400 600 Balance -1700 -2400 -600 Intake: Oral 0 Output: Urine 950 1200 600 Stool 750 300 Urine/Stool Mix 900 Other: Voiding Method Indwelling Catheter Indwelling Catheter Indwelling Catheter ABP, PAP, CO, CI - Last Documented Arterial Blood Pressure 138/57 - Labs CBC & Chem 7: 12/21/23 05:00 12/23/23 06:42 Labs: Abnormal Lab Results - Last 24 Hours (Table) 12/22/23 12/22/23 12/22/23 Range/Units 12:05 18:00 23:55 Sodium (137-145) mmol/L Chloride (98-107) mmol/L Carbon Dioxide (22-30) mmol/L BUN (9-20) mg/dL Creatinine (0.66-1.25) mg/dL Glucose (74-99) mg/dL POC Glucose (mg/dL) 140 H 131 H 175 H (70-110) mg/dL 12/23/23 12/23/23 Range/Units 05:45 06:42 Sodium 136 L (137-145) mmol/L Chloride 94 L (98-107) mmol/L Carbon Dioxide 39 H (22-30) mmol/L BUN 21 H (9-20) mg/dL Creatinine 0.44 L (0.66-1.25) mg/dL Glucose 183 H (74-99) mg/dL POC Glucose (mg/dL) 169 H (70-110) mg/dL
[2023-12-23 12:53] VITALS: BMI 30.7
--- NOTE | 2023-12-23 14:34 | P.PN ---
Subjective Progress Note Date: 12/23/23 Principal diagnosis: Shortness of breath, hypoxemic respiratory failure. This is a 48-year-old male patient, brought into the hospital because of hypoxemia that was noted at home. The patient is not having any worsening shortness of breath. No reported aspiration. Occasional cough and congestion. No significant sputum production. The patient has a very extensive past medical history. He is known to have previous history of Crohn's disease that has been complicated by bowel perforation for which the patient required a bowel resection and currently has an ileostomy. 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 Note that his course was rather complicated following his previous bowel surgery. The patient had prolonged ventilator dependent respiratory failure requiring intubation mechanical ventilation and subsequent tracheostomy tube insertion. The patient also required hemodialysis for renal failure and renal replacement therapy. Ultimately, dialysis has been discontinued as the patient renal function improved and the tracheostomy tube was also eliminated. 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 His last evaluation here in our hospital was and February 2023 and at that time, the patient came into us with generalized weakness and fatigue and he was treated for sepsis/bacteremia and the treatment was successful. He continues to have a port in his left anterior chest area through which she receives TPN to supplement his oral intake. His current white cell count at 6.3 with a heme of 13 and a platelet count of 15 2. Sodium is 138 with a potassium level of 4.7, BUN 16 with a creatinine of 0.33. His UA is negative. Viral screen is also negative. The patient's slightly lethargic. He is arousable and awake. He is currently on 3 L of oxygen by nasal cannula with pulse ox 93%. His chest x-ray shows chronic elevation of the right hemidiaphragm without any acute cardiopulmonary process. The patient has been maintained on anticoagulation on outpatient basis and he is on Lovenox 80 mg subcu every 12 hours. On 12/14/2023, the patient is being seen for a follow-up in the emergency department. The patient was slightly hypoxic and was admitted to the hospital for further investigation. Overnight, the patient's condition became worse. The patient had a repeat chest x-ray earlier this morning and the patient was found to have complete collapse of the right lung with volume loss. There was complete widening out of the right lung. Following that, the patient became progressively hypoxic. The patient had a blood gas that showed a pH of 7.28 with a pCO2 of 78 and pO2 of 63 consistent with an acute on top of chronic respiratory acidosis with significant hypoxemia. Based on that, the patient was placed on a BiPAP at a pressure of 12 over 6 cm of water. Subsequently, the oxygenation improved and the patient got transferred to the ICU. Prior to next discussion with the patient. The patient was awake and alert and he seemed to be able to make his own medical decisions. I also contacted the family members and discussed with them the findings. The findings are consistent with mucous plugging and volume loss and a complete atelectasis of the right lung. The patient will obviously need to be supported with mechanical ventilator and subsequently have a bronchoscopy done regarding the right lung atelectasis. Patient was agreeable to that. I initially attempted to do the bronchoscope under conscious sedation. Give the patient a total of 4 mg of Versed. However, following that, I noted that the patient became progressively more hypoxic while being on high flow nasal oxygen and 100% nonrebreather facemask. Based on that, I intubated the patient. During the intubation process, I noted that it was difficult to push and the #8 orotracheal tube. Later on it was confirmed that t he patient has a component of tracheal stenosis in the upper trachea area. Nevertheless, I was able to pass the ET tube to the level of the tracheal stenosis. There was adequate ventilation at that point. I also inserted the bronchoscope and therapeutic airway suctioning was done with copious amount of thick purulent creamy respiratory secretions were identified in the right lower lobe and right mainstem bronchus. Total amount of volume aspirated from the right lung was in the order of 40 cc of purulent material. The patient was started on a combination of Zosyn and vancomycin. Currently is on propofol at 20 mcg/kg/min. Hemodynamically stable. Postprocedure chest x-ray done showed marked improvement in aeration of the right lung with marked reduction in the right lung atelectasis. There was interval development of a small left-sided pulmonary infiltrates. ET tube was seen in the upper tracheal area. Unable to push in the ET tube any further due to underlying tracheal stenosis. Hemodynamically stable at this point in time. Family has been informed of the changes. The white cell count from this morning is at 10 with a hemoglobin 15 and a platelet count of 155. Sodium is at 138, potassium is 4.4, BUN 21 with a creatinine of 0.36. Currently intubated on the mechanical ventilator. 12/15/2023, patient is being seen for a follow-up. The patient is arousable while being on propofol which is running at 50 mcg/kg/min. He is able to communicate even while being on sedation. As mentioned, he was intubated and placed on mechanical ventilator and copious amounts of mucous plugs was aspirated from the right lung yesterday. This was done following the bronchoscopy. Cultures are still pending for now although there is a preliminary sputum culture that showed haemophilus influenza. The patient is currently on a combination Zosyn and vancomycin. Meanwhile, the patient remains on mechanical ventilator assist-control mode with rate of 24, tidal volume of 400, FiO2 of 60% with a PEEP of 5. Chest x-ray still showing atelectatic changes right lung base. There is improved aeration of the right lung in general. The blood gas showed a pH of 7.5 with a pCO2 of 45 and a pO2 of 75. The blood work shows a white cell count of 13.4 with a hemoglobin of 12.4 and platelet count of 196. Sodium is 136, potassium is at 4.5, BUN is 18 with a creatinine of 0.35. The patient is also on IV fluids with normal saline at rate of 75 cc an hour. He is on norepinephrine at 0.04 mcg/kg/min. No other significant events overnight. Output from the abdominal fistulas and ileostomy has been noted. Later today on 12/16/23, patient remains in the ICU, intubated and mechanically ventilated. He is on assist-control rate of 24 tidal volume 400 FiO2 50% and PEEP of 5 ABG showed a pO2 of 82 pCO2 43 pH of 7.39. Patient remains on norepinephrine at 0.09 mcg/kg/min on propofol at 60 mcg/kg/min he is also on TPN. Patient is receiving vancomycin and Zosyn for what seems to be haemophilus influenza pneumonia, may consider stopping vancomycin and continue Zosyn. Blood cultures are pending, cultures from BAL are pending. Procalcitonin level is 0.85. Chest x-ray continues to show extensive disease involving the right lower lobe and left lower lobe. WBC count is 8 hemoglobin 11.9. Potassium is low at 2.6 being addressed as per protocol. Procalcitonin level is 0.85. C-reactive protein 13.2. According to the nurses patient was appropriate off sedation earlier this morning, but looking at his overall picture and his clinical findings on examination, patient is not ready for weaning and extubation. Patient was evaluated today on 12/17/2023, remains in the ICU, intubated and mechanically ventilated. Patient is on assist-control rate of 24 tidal volume 400 FiO2 60% PEEP increased to 8. ABG not done today, it is pending.WBC count is 5.6 hemoglobin 11.9. Basic metabolic profile is normal BUN is 4 creatinine 0.37 patient remains on vancomycin and Zosyn, procalcitonin level is 0.85 chest x-ray shows improvement in bibasilar opacities. Patient is very norepinephrine at 0.09 mcg/kg/min he is also on TPN at 30 cc/h propofol at 70 mcg/kg/min and IV fluids 75 cc/h 0.9 normal saline. His sputum came back positive for H. influenzae and MRSA. Patient again is on Zosyn and vancomycin. I am planning today to give the patient a weaning trial, and I did, few hours later I was notified that the patient's weaning parameters where very poor off propofol, hence I recommended that he goes back on propofol, and he is not ready for weaning. Patient evaluated today on 12/18/2023, patient remains in the ICU, intubated mechanically ventilated, patient was on norepinephrine until earlier today, he is to be on norepinephrine at 0.03 mcg/kg/min, remains on assist-control rate of 24 tidal volume 400 FiO2 50% and PEEP of 8. ABG today showed a pO2 of 73 pCO2 47 pH of 7.38. Hence no changes were made in his ventilator settings. I did establish a left brachial arterial line in this patient for hemodynamic monitoring and blood gases monitoring on a daily basis. Patient had difficult access, he does have a left subclavian central line and now he has a left brac hial arterial line. Patient is on TPN he is also on propofol and he is on IV fluid at 20 cc/h. Remains on vancomycin and Zosyn for haemophilus influenza and MRSA in the sputum. Today I plan to give the patient a weaning trial again I would like to switch him to pressure support and CPAP, and I would like to see if the patient tolerates coming off propofol and use Precedex instead. Chest x- ray continues to show some right basilar airspace disease, improved compared to his initial chest x-ray on admission Patient was evaluated today on 12/19/2023, is in the ICU, intubated and mechanically ventilated however the patient has been on pressure support of 12 and CPAP over the last 24 hours, seems to be tolerating that quite well. ABG this morning showed a pO2 of 70 pCO2 42 pH of 7.42 and this was on 50% with a pressure support of 12/6/50% pressures was cut down to 10 and he continued to michel ve adequate tidal volumes patient seems to be very awake, he is on Precedex off propofol off other sedatives, remains on vancomycin and Zosyn his TPN is at 50 cc/h, reviewed his chest x-ray showed evidence of edema and the patient was given a dose of Lasix with excellent urine output after the Lasix given.WBC count is 3.8 hemoglobin is 10.9.Basic metabolic profile is normal BUN is 7 creatinine 0.33 Patient was seen today on 12/20/2023, remains in the ICU, he was extubated yesterday uneventfully. However required to go on BiPAP at night since his pulmonary status is marginal. To have significant airspace disease and possibly pulmonary edema involving the right lung mostly. Patient remains on antibiotics in the form of Zosyn and on vancomycin. Remains on diuretics, patient has significant urine output this morning hence I held back on diuretics today.Patient is comfortable, he is on BiPAP, 12/6/50% and I cut it down to 45% and remains on TPN. WBC count is 3.5 hemoglobin 11.3, Basic metabolic profile is normal BUN is 12 creatinine 0.36 Patient was seen today on 12/21/2023, remains in the ICU on 4 L nasal cannula tolerated the extubation very well over the last 2 days, patient is gradually improving, clinically better. Procalcitonin today 0.19, chest x-ray continues to show some interstitial edema especially on the right side, patient is improving with Lasix, more Lasix was given today.Antibiotics have been discontinued today WBC count is 4.3 hemoglobin 11.7 basic metabolic profile is normal renal profile is normal Patient was seen today on 12/22/2023, remains on 4 L nasal cannula, patient is now out of the ICU on the cardiac floor/3 S., gradually getting better, not in any distress, feels much better today compared to how he felt when he came in. Remains on antibiotics remains on bronchodilators, patient has a chronic PICC line that was removed on this admission and had a central line placed, the plan is to replace his PICC line and this will be done hopefully tomorrow. Then his central line will be discontinued labs today showed relatively normal electrolytes normal renal profile. Patient was treated for MRSA and for haemophilus influenza positive cultures and antibiotics have been discontinued Progress note dated December 23, 2023. The patient is seen today in room 367. This is a 48-year-old male who was admitted with a diagnosis of shortness of breath, and respiratory failure. Currently, he is on 4 L nasal cannula. He is getting TPN at 90 cc an hour, and saline at 20 cc an hour. Saturations are 92%. Current laboratory data includes a sodium 136, potassium 3.8, chlorides 94, CO2 39, BUN 21, creatinine 0.44. Glucose is 204. Calcium 8.8, phosphorus 2.7, magnesium 2.1. Sputum from December 12 and revealed evidence of Haemophilus influenzae. Nasal swab from December 13 reveals methicillin-resistant Staph aureus. Objective - Vital Signs Vital signs: Vital Signs Temp 97.8 F 12/23/23 11:44 Pulse 80 12/23/23 12:41 Resp 20 12/23/23 11:44 BP 115/72 12/23/23 11:44 Pulse Ox 92 L 12/23/23 11:44 FiO2 50 12/20/23 08:07 Intake & Output 12/22/23 12/23/23 12/23/23 18:59 06:59 18:59 Intake Total 240 Output Total 1700 2400 600 Balance -1700 -2400 -360 Weight 97.3 kg Intake: Oral 240 Output: Urine 950 1200 600 Stool 750 300 Urine/Stool Mix 900 Other: Voiding Method Indwelling Catheter Indwelling Catheter Indwelling Catheter ABP, PAP, CO, CI - Last Documented Arterial Blood Pressure 138/57 - Exam No acute distress, oriented 3. Currently on 4 L nasal cannula. HEENT examination is grossly unremarkable. Mucous membranes are moist. No oral lesions. Neck supple. Full range of motion. No adenopathy thyromegaly or neck vein distention. Cardiovascular examination reveals regular rhythm rate. S1-S2 normal. No S3 or S4. No discernible murmur noted. Lungs reveal scattered bilateral rhonchi. No wheezes or crackles. Breath sounds equal bilaterally. Abdomen examination reveals a midline dressing from previous surgery, midline abdominal incision, which is well-healed, and ileostomy, and anterior abdominal wall fistula. Extremities are intact. No cyanosis or clubbing. Patient has a right below the knee amputation. Skin is without rash or lesion. Neurologic examination is brief but nonfocal. - Labs CBC & Chem 7: 12/21/23 05:00 12/23/23 06:42 Labs: Abnormal Lab Results - Last 24 Hours (Table) 12/22/23 12/22/23 12/23/23 Range/Units 18:00 23:55 05:45 Sodium (137-145) mmol/L Chloride (98-107) mmol/L Carbon Dioxide (22-30) mmol/L BUN (9-20) mg/dL Creatinine (0.66-1.25) mg/dL Glucose (74-99) mg/dL POC Glucose (mg/dL) 131 H 175 H 169 H (70-110) mg/dL 12/23/23 12/23/23 Range/Units 06:42 11:30 Sodium 136 L (137-145) mmol/L Chloride 94 L (98-107) mmol/L Carbon Dioxide 39 H (22-30) mmol/L BUN 21 H (9-20) mg/dL Creatinine 0.44 L (0.66-1.25) mg/dL Glucose 183 H (74-99) mg/dL POC Glucose (mg/dL) 204 H (70-110) mg/dL Assessment and Plan Assessment: Acute on chronic hypoxemic respiratory failure, status post intubation and subsequent extubation, on December 19, 2023. Acute right sided pneumonia, with significant mucous plugging, requiring bronchoscopy. Acute on chronic hypercapnic respiratory failure. History of chronic tracheal stenosis, from previous tracheostomy. History of Crohn's disease. Right diaphragm elevation, which is chronic. Acute sepsis secondary to Serratia marcescens. History of CVA with right-sided neurologic deficit. History of DVT. History of right below the knee amputation. History of Crohn's disease. History of cardiac arrest, 2021. Obesity. Plan: Plan dated December 23, 2023. The patient is seen today in room 367. He continues on O2 at 4 L. The patient is getting TPN at 90 cc an hour. The patient is also getting saline at 20 cc an hour. His pulmonary examination reveals diffuse rhonchi. We will continue to follow make recommendations along the way. Labs, x-rays, and all medications are reviewed. The patient continues on nutritional support as mentioned above. He also continues with GI and DVT prophylaxis. Prognosis is guarded. Discharge planning underway, and the patient will likely need rehabilitation placement. Time with Patient: Less than 30
[2023-12-23] MEDS: [UNRECOGNIZED DRUG - REMARK] IV SCH (15:58)
[2023-12-23 16:27] LABS: Glucose,Whole Blood 95 mg/dL (70-110)
[2023-12-23 23:35] LABS: Glucose,Whole Blood 190 mg/dL (70-110)
[2023-12-24 05:57] LABS: Glucose,Whole Blood 190 mg/dL (70-110)
[2023-12-24 07:00] LABS: Anisocytosis Slight; Basophils % (A) 1 %; Eosinophils # (A) 0.2 k/uL (0-0.7); Eosinophils % (A) 3 %; HCT 43.8 % (39.0-53.0); HGB 13.3 gm/dL (13.0-17.5); Hypochromasia Marked; Lymphocytes # (A) 1.7 k/uL (1.0-4.8); Lymphocytes % (A) 30 %; MCH 27.4 pg (25.0-35.0); MCHC 30.4 g/dL (31.0-37.0); MCV 90.1 fL (80.0-100.0); Mean Platelet Volume 10.2; Monocytes # (A) 0.4 k/uL (0-1.0); Monocytes % (A) 7 %; Neutrophils # (A) 3.2 k/uL (1.3-7.7); Neutrophils % (A) 56 %; Platelet Count 239 k/uL (150-450); Poikilocytosis Slight; RBC 4.86 m/uL (4.30-5.90); RDW 16.2 % (11.5-15.5); WBC 5.6 k/uL (3.8-10.6)
[2023-12-24 07:14] LABS: ALT 21 U/L (4-49); AST 24 U/L (17-59); African American GFR (CKD) >90 (>60 ml/min/1.73 sqM); Albumin 3.2 g/dL (3.5-5.0); Alkaline Phosphatase 98 U/L (38-126); Anion Gap 2 mmol/L; Blood Urea Nitrogen 31 mg/dL (9-20); Calcium 8.8 mg/dL (8.4-10.2); Carbon Dioxide 33 mmol/L (22-30); Chloride 98 mmol/L (98-107); Glucose 200 mg/dL (74-99); Magnesium 2.3 mg/dL (1.6-2.3); Non-African American GFR(CKD) >90 (>60 ml/min/1.73 sqM); Phosphorus 3.8 mg/dL (2.5-4.5); Potassium 3.9 mmol/L (3.5-5.1); Sodium 133 mmol/L (137-145); Total Bilirubin 0.8 mg/dL (0.2-1.3); Total Protein 7.3 g/dL (6.3-8.2)
[2023-12-24 12:07] LABS: Glucose,Whole Blood 166 mg/dL (70-110)
--- NOTE | 2023-12-24 12:16 | P.PN ---
Subjective Progress Note Date: 12/24/23 Patient is seen and examined today as a follow-up. Discussed with him there is no need for removal of his Vivas line as there is no report concerns or signs of infection. Patient voiced concern that he has had bacteremia in the past secondary to his PICC lines. It was also discussed with patient that there is concern if he continues to need which he will Vivas catheter eventually patient could run out of places for placement due to scar tissue. Objective - Vital Signs Vital signs: Vital Signs Temp 98.1 F 12/24/23 08:40 Pulse 88 12/24/23 09:23 Resp 19 12/24/23 07:38 BP 104/62 12/24/23 08:40 Pulse Ox 94 L 12/24/23 07:38 FiO2 50 12/20/23 08:07 Intake & Output 12/23/23 12/24/23 12/24/23 18:59 06:59 18:59 Intake Total 480 1046 Output Total 2750 1625 Balance -2270 -1625 1046 Weight 97.3 kg Intake: Intake, IV Titration 1046 Amount Potassium Chloride 14 meq 1046 Magnesium Sulfate gm 1.5 gm Potassium Phosphate 18 mmol Sodium Chloride 4Meq/ml Vial 80 meq Calcium Gluconate 1 gm In Amino Acid 5%-D15w 1,000 ml @ 120 mls/hr IV .[facility] Rx#: [id number] Oral 480 Output: Urine 1550 725 Stool 1200 900 Other: Voiding Method Indwelling Catheter Indwelling Catheter Indwelling Catheter ABP, PAP, CO, CI - Last Documented Arterial Blood Pressure 138/57 - Exam General appearance: The patient is alert, oriented, appears in no acute dist ress. Morbidly obese. HET: Head is normocephalic and atraumatic. Pupils are equal and reactive. Neck: Supple. Chest: Left upper chest wall with Ivvas catheter in place Heart: Regular. Lungs: Equal expansion, normal respiratory effort. Abdomen: Soft, nontender, nondistended. Extremities: Normal skin color and turgor. Neurological: Residual left-sided weakness. - Labs CBC & Chem 7: 12/24/23 06:13 12/24/23 06:13 Labs: Abnormal Lab Results - Last 24 Hours (Table) 12/23/23 12/23/23 12/24/23 Range/Units 11:30 23:32 05:55 MCHC (31.0-37.0) g/dL RDW (11.5-15.5) % Sodium (137-145) mmol/L Carbon Dioxide (22-30) mmol/L BUN (9-20) mg/dL Creatinine (0.66-1.25) mg/dL Glucose (74-99) mg/dL POC Glucose (mg/dL) 204 H 190 H 190 H (70-110) mg/dL Albumin (3.5-5.0) g/dL 12/24/23 12/24/23 Range/Units 06:13 06:13 MCHC 30.4 L (31.0-37.0) g/dL RDW 16.2 H (11.5-15.5) % Sodium 133 L (137-145) mmol/L Carbon Dioxide 33 H (22-30) mmol/L BUN 31 H (9-20) mg/dL Creatinine 0.56 L (0.66-1.25) mg/dL Glucose 200 H (74-99) mg/dL POC Glucose (mg/dL) (70-110) mg/dL Albumin 3.2 L (3.5-5.0) g/dL Assessment and Plan Assessment: 1. Acute hypoxic respiratory failure requiring intubation, resolving 2. Pneumonia, haemophilus influenza 3. Sepsis 4. History of bacteremia 5. Crohn's disease with history of perforation requiring colectomy and ileostomy, on TPN for nutrition support with Vivas catheter Plan: Patient with Vivas catheter in place without any signs of infection, no bacteremia, no concerns for malfunctioning. There is no indication that his Vivas catheter needs to be removed and no limitation on duration of use if functioning fine. This is explained to patient as well as explanation of limitations of placement with multiple new sites. Patient verbalizes understanding. No plans on replacement of Vivas catheter. Continue medical management. Patient can follow-up with vascular surgery outpatient if any concerns or malfunctions with Vivas catheter. Thank you for this consultation. The impression and plan of care has been dictated as directed. Dr. Medina I performed a history and examination of this patient, discussed the same with the dictator. I agree with the dictator's note ,documented as a scribe. Any additional findings or plans will be noted.
--- NOTE | 2023-12-24 12:42 | P.PN ---
Subjective Progress Note Date: 12/24/23 This is a pleasant 48 years old male with past medical history of Crohn disease complicated with bowel perforation requiring ileostomy, also has 2 fistula in his anterior abdominal Wall, patient also has left upper chest portal to receive TPN, patient also able to take oral feeding. 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 He has history of respiratory failure requiring tracheostomy insertion with subsequent removal Patient lives at home with his 2 sons. Information were obtained with the help of his mother at bedside. Patient presents to the hospital at this time because of respiratory difficulty, he came to emergency room yesterday for the same reason and he was discharged home, he was noticed to have hypoxia with coughing but that is improved yesterday. At home he have recurrence of his symptoms so he decided to come to emergency room today. Patient somewhat drowsy and could not participate in history however has per mother he is drowsy because of lack of sleep and he is usually more awake. Patient denies chest pain, no abdominal pain, he has ileostomy bag in place with some loose stool, as per mother at bedside this is his normal consistency. He has external urinary catheter. Denies dysuria or urgency. Both legs looks weak, has right BKA, no swelling or cellulitis. Patient is afebrile, he was hypoxic 88% on room air. Slightly tachypneic around 20. He has unremarkable CBC, BMP, liver enzymes, troponin x 1 less than 0.012. proBNP is 21. Influenza A and type B, RSV, SARS (coronavirus) are undetected D-dimer is negative at 0.45 EKG showing sinus rhythm at [address]-T changes Chest x-ray showing low volume but no acute process per radiologist Venous pH is low normal at 7.3, bicarb is elevated 34 and pCO2 is elevated at 62. Patient received prednisone 40 mg and Zithromax prior to hospitalization. 12/13 Patient developed complete collapse of the right lung, which is apparent on the chest x-ray this morning and he is developing more hypoxia he was saturation 77 and 5 L, currently he is kept on BiPAP He has no fever Blood pressure stable 127/64 Patient started on Zosyn also he is on IV Solu-Medrol 40 mg twice daily He is on a Protonix and therapeutic dose of Lovenox Pro- Calcitonin is low at 0.16 pH is low with high pCO2. Patient is going to be transferred to the ICU 12/14 Patient currently remains in the ICU intubated and sedated, also he required a small dose of Levophed for blood pressure support He status post bronchoscopy second 1 today, about 100 milliliter of mucus secretions pulled out. He has evidence of tracheomalacia as well but patent trachea. Bronchoscopy procedure reviewed with pulmonary team He is currently covered with IV vancomycin and Zosyn Cultures are still pending Chest x-ray showing endotracheal tube in position, right lower lobe infiltrate for pneumonia He is also on therapeutic dose of Lovenox continued from home 12/15 Patient remains in the ICU intubated and sedated with pulmonary/critical care team following closely and help with vent management Currently he is also requiring pressors, Levophed at 0.09 mcg/kg/min He is on IV vancomycin and Zosyn S/p bronchoscopy yesterday Sputum culture is growing haemophilus influenzae He is on home dose of Lovenox for 80 mg twice daily He is on normal saline 75 L/h 12/17/2023 Patient is MICU on mechanical ventilator. Patient remains on norepinephrine and is sedated with propofol. On IV hydration with normal saline 75/h. Chest x-ray showed stable portable chest. Clinical correlation and follow-up on resolution is recommended. Laboratory data showed WBC 5.6 hemoglobin 11.9 and platelets 166 sodium 137 potassium 3.5 chloride 112 bicarb is 21 BUN 4 and creatinine 0.37 and blood sugar 120 and magnesium 1.6. TSH within normal limits. Patient is being continued on antibiotics in the form of Zosyn. Sputum culture showed haemophilus influenza. 12/18/2023 Patient is in the MICU. Currently on mechanical ventilator. Patient is also on norepinephrine drip which is being slowed down. Chest x-ray today showed stable portable chest. Clinical correlation and follow-up until resolution is recommended. Patient is being continued on antibiotics and home Zosyn. Also on vancomycin. Laboratory data showed WBC 4.2 hemoglobin 11.4 and platelets 176 sodium 140 potassium 3.2 chloride 112 bicarb is 24 BUN 14 creatinine 0.29 and blood sugar 118 and magnesium 1.8. 12/19/2023 Patient is in the MICU currently on pressure support. Patient is otherwise awake alert and oriented. No complaints of chest pain or shortness of breath. No nausea or vomiting. Patient on TPN. Continued on antibiotics above vancomycin and Zosyn. Chest x-ray today showed stable portable chest. Clinical correlation and follow-up on resolution is recommended. Laboratory data showed WBC 3.8 hemoglobin 10.9 and platelets 159 sodium 138 potassium 3.7 chloride 113 bicarb is 26 BUN 7 creatinine 0.33 and blood sugar 100 and phosphorus 2.3 AST 15 ALT 13 alk phos 69 albumin 2.3 12/20/2023 Patient is seen in the MICU. Patient was on BiPAP yesterday and was extubated later. Awake alert and oriented currently requiring oxygen at 6 L via nasal cannula. Chest x-ray today showed stable chest. Denied any chest pain or worsening shortness of breath. No cough or sputum production. Stool is noted in the ostomy output. Urine output is adequate. Laboratory data showed WBC 3.4 hemoglobin 11.3 and platelets 161 sodium 137 potassium 3.7, bicarb 28 BUN 12 and creatinine 0.36 and blood sugar 136 and calcium 7.9 and magnesium 1.7. Patient remains on antibiotics in the form of vancomycin and Zosyn. Nasal screen showed MRSA and sputum culture showed haemophilus influenza. Critical care team is on board. 12/20. Patient seen and examined. Patient was transferred out of ICU this morning. Currently on 3 S. Patient stated he feels much better. Family at the bedside. Breathing is improved. 12/21. Patient seen and examined. Vital signs this morning temperature 90.1, heart rate 91, blood pressure 114/67. Labs sodium 130, potassium 4.4, BUN 18, creatinine 0.44 12/22. Patient seen and examined. Patient needs his PICC line replaced, vascular surgery consulted. 12/23. Patient seen and examined. Vascular surgery consulted for changing of Vivas catheter, at this time vascular surgery recommend keeping the current catheter as there is no need for Vivas catheter to be replaced. REVIEW OF SYSTEMS: CONSTITUTIONAL: No fever, no malaise,. CARDIOVASCULAR: No chest pain, no palpitations, no syncope. PULMONARY: No shortness of breath, no cough, GASTROINTESTINAL: No diarrhea, no nausea, no vomiting, no abdominal pain. NEUROLOGICAL: No headaches, no weakness, PHYSICAL EXAMINATION: GENERAL: The patient is alert and oriented x3, ill looking HEENT: Pupils are round and equally reacting to light. EOMI. No scleral icterus. No conjunctival pallor. Normocephalic, atraumatic. No pharyngeal erythema. No thyromegaly. CARDIOVASCULAR: S1 and S2 present. No murmurs, rubs, or gallops. PULMONARY: Diminished breath sound the bases bilaterally ABDOMEN: Soft, nontender, nondistended,. Ostomy seen MUSCULOSKELETAL: No joint swelling or deformity. Right BKA EXTREMITIES: No cyanosis, clubbing, or pedal edema. NEUROLOGICAL: Gross neurological examination did not reveal any focal deficits. SKIN: No rashes. Assessment and plan Right lower lobe pneumonia, complicated by right lung collapse secondary to mucous plug status post bronchoscopy on 12/13 and 12/14. Sputum culture showed haemophilus influenza. Nasal culture showed MRSA. Septic shock secondary to above Acute hypoxic hypercapnic respiratory failure. Was on mechanical ventilator, changed to pressure support. Extubated on 12/19/2023. 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 Continue same treatment. Continue with symptomatic treatment. Resume home medication. Monitor labs and vitals. DVT and GI prophylaxis. Further recommendations as per clinical course of the patient Dictation was produced using [employer] dictation software. please excuse any grammatical, word or spelling errors. Objective - Vital Signs Vital signs: Vital Signs Temp 98.1 F 12/24/23 11:39 Pulse 80 12/24/23 12:22 Resp 17 12/24/23 11:39 BP 106/63 12/24/23 11:39 Pulse Ox 95 12/24/23 11:39 FiO2 50 12/20/23 08:07 Intake & Output 12/23/23 12/24/23 12/24/23 18:59 06:59 18:59 Intake Total 480 1046 Output Total 2750 1625 Balance -2270 -1625 1046 Weight 97.3 kg Intake: Intake, IV Titration 1046 Amount Potassium Chloride 14 meq 1046 Magnesium Sulfate gm 1.5 gm Potassium Phosphate 18 mmol Sodium Chloride 4Meq/ml Vial 80 meq Calcium Gluconate 1 gm In Amino Acid 5%-D15w 1,000 ml @ 120 mls/hr IV .BY [facility] Rx#: [id number] Oral 480 Output: Urine 1550 725 Stool 1200 900 Other: Voiding Method Indwelling Catheter Indwelling Catheter Indwelling Catheter ABP, PAP, CO, CI - Last Documented Arterial Blood Pressure 138/57 - Labs CBC & Chem 7: 12/24/23 06:13 12/24/23 06:13 Labs: Abnormal Lab Results - Last 24 Hours (Table) 12/23/23 12/24/23 12/24/23 Range/Units 23:32 05:55 06:13 MCHC (31.0-37.0) g/dL RDW (11.5-15.5) % Sodium 133 L (137-145) mmol/L Carbon Dioxide 33 H (22-30) mmol/L BUN 31 H (9-20) mg/dL Creatinine 0.56 L (0.66-1.25) mg/dL Glucose 200 H (74-99) mg/dL POC Glucose (mg/dL) 190 H 190 H (70-110) mg/dL Albumin 3.2 L (3.5-5.0) g/dL 12/24/23 12/24/23 Range/Units 06:13 12:05 MCHC 30.4 L (31.0-37.0) g/dL RDW 16.2 H (11.5-15.5) % Sodium (137-145) mmol/L Carbon Dioxide (22-30) mmol/L BUN (9-20) mg/dL Creatinine (0.66-1.25) mg/dL Glucose (74-99) mg/dL POC Glucose (mg/dL) 166 H (70-110) mg/dL Albumin (3.5-5.0) g/dL
--- NOTE | 2023-12-24 14:03 | P.PN ---
Subjective Progress Note Date: 12/24/23 Principal diagnosis: Shortness of breath, hypoxemic respiratory failure. This is a 48-year-old male patient, brought into the hospital because of hypoxemia that was noted at home. The patient is not having any worsening shortness of breath. No reported aspiration. Occasional cough and congestion. No significant sputum production. The patient has a very extensive past medical history. He is known to have previous history of Crohn's disease that has been complicated by bowel perforation for which the patient required a bowel resection and currently has an ileostomy. 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 Note that his course was rather complicated following his previous bowel surgery. The patient had prolonged ventilator dependent respiratory failure requiring intubation mechanical ventilation and subsequent tracheostomy tube insertion. The patient also required hemodialysis for renal failure and renal replacement therapy. Ultimately, dialysis has been discontinued as the patient renal function improved and the tracheostomy tube was also eliminated. 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 His last evaluation here in our hospital was and February 2023 and at that time, the patient came into us with generalized weakness and fatigue and he was treated for sepsis/bacteremia and the treatment was successful. He continues to have a port in his left anterior chest area through which she receives TPN to supplement his oral intake. His current white cell count at 6.3 with a heme of 13 and a platelet count of 15 2. Sodium is 138 with a potassium level of 4.7, BUN 16 with a creatinine of 0.33. His UA is negative. Viral screen is also negative. The patient's slightly lethargic. He is arousable and awake. He is currently on 3 L of oxygen by nasal cannula with pulse ox 93%. His chest x-ray shows chronic elevation of the right hemidiaphragm without any acute cardiopulmonary process. The patient has been maintained on anticoagulation on outpatient basis and he is on Lovenox 80 mg subcu every 12 hours. On 12/14/2023, the patient is being seen for a follow-up in the emergency department. The patient was slightly hypoxic and was admitted to the hospital for further investigation. Overnight, the patient's condition became worse. The patient had a repeat chest x-ray earlier this morning and the patient was found to have complete collapse of the right lung with volume loss. There was complete widening out of the right lung. Following that, the patient became progressively hypoxic. The patient had a blood gas that showed a pH of 7.28 with a pCO2 of 78 and pO2 of 63 consistent with an acute on top of chronic respiratory acidosis with significant hypoxemia. Based on that, the patient was placed on a BiPAP at a pressure of 12 over 6 cm of water. Subsequently, the oxygenation improved and the patient got transferred to the ICU. Prior to next discussion with the patient. The patient was awake and alert and he seemed to be able to make his own medical decisions. I also contacted the family members and discussed with them the findings. The findings are consistent with mucous plugging and volume loss and a complete atelectasis of the right lung. The patient will obviously need to be supported with mechanical ventilator and subsequently have a bronchoscopy done regarding the right lung atelectasis. Patient was agreeable to that. I initially attempted to do the bronchoscope under conscious sedation. Give the patient a total of 4 mg of Versed. However, following that, I noted that the patient became progressively more hypoxic while being on high flow nasal oxygen and 100% nonrebreather facemask. Based on that, I intubated the patient. During the intubation process, I noted that it was difficult to push and the #8 orotracheal tube. Later on it was confirmed that t he patient has a component of tracheal stenosis in the upper trachea area. Nevertheless, I was able to pass the ET tube to the level of the tracheal stenosis. There was adequate ventilation at that point. I also inserted the bronchoscope and therapeutic airway suctioning was done with copious amount of thick purulent creamy respiratory secretions were identified in the right lower lobe and right mainstem bronchus. Total amount of volume aspirated from the right lung was in the order of 40 cc of purulent material. The patient was started on a combination of Zosyn and vancomycin. Currently is on propofol at 20 mcg/kg/min. Hemodynamically stable. Postprocedure chest x-ray done showed marked improvement in aeration of the right lung with marked reduction in the right lung atelectasis. There was interval development of a small left-sided pulmonary infiltrates. ET tube was seen in the upper tracheal area. Unable to push in the ET tube any further due to underlying tracheal stenosis. Hemodynamically stable at this point in time. Family has been informed of the changes. The white cell count from this morning is at 10 with a hemoglobin 15 and a platelet count of 155. Sodium is at 138, potassium is 4.4, BUN 21 with a creatinine of 0.36. Currently intubated on the mechanical ventilator. 12/15/2023, patient is being seen for a follow-up. The patient is arousable while being on propofol which is running at 50 mcg/kg/min. He is able to communicate even while being on sedation. As mentioned, he was intubated and placed on mechanical ventilator and copious amounts of mucous plugs was aspirated from the right lung yesterday. This was done following the bronchoscopy. Cultures are still pending for now although there is a preliminary sputum culture that showed haemophilus influenza. The patient is currently on a combination Zosyn and vancomycin. Meanwhile, the patient remains on mechanical ventilator assist-control mode with rate of 24, tidal volume of 400, FiO2 of 60% with a PEEP of 5. Chest x-ray still showing atelectatic changes right lung base. There is improved aeration of the right lung in general. The blood gas showed a pH of 7.5 with a pCO2 of 45 and a pO2 of 75. The blood work shows a white cell count of 13.4 with a hemoglobin of 12.4 and platelet count of 196. Sodium is 136, potassium is at 4.5, BUN is 18 with a creatinine of 0.35. The patient is also on IV fluids with normal saline at rate of 75 cc an hour. He is on norepinephrine at 0.04 mcg/kg/min. No other significant events overnight. Output from the abdominal fistulas and ileostomy has been noted. Later today on 12/16/23, patient remains in the ICU, intubated and mechanically ventilated. He is on assist-control rate of 24 tidal volume 400 FiO2 50% and PEEP of 5 ABG showed a pO2 of 82 pCO2 43 pH of 7.39. Patient remains on norepinephrine at 0.09 mcg/kg/min on propofol at 60 mcg/kg/min he is also on TPN. Patient is receiving vancomycin and Zosyn for what seems to be haemophilus influenza pneumonia, may consider stopping vancomycin and continue Zosyn. Blood cultures are pending, cultures from BAL are pending. Procalcitonin level is 0.85. Chest x-ray continues to show extensive disease involving the right lower lobe and left lower lobe. WBC count is 8 hemoglobin 11.9. Potassium is low at 2.6 being addressed as per protocol. Procalcitonin level is 0.85. C-reactive protein 13.2. According to the nurses patient was appropriate off sedation earlier this morning, but looking at his overall picture and his clinical findings on examination, patient is not ready for weaning and extubation. Patient was evaluated today on 12/17/2023, remains in the ICU, intubated and mechanically ventilated. Patient is on assist-control rate of 24 tidal volume 400 FiO2 60% PEEP increased to 8. ABG not done today, it is pending.WBC count is 5.6 hemoglobin 11.9. Basic metabolic profile is normal BUN is 4 creatinine 0.37 patient remains on vancomycin and Zosyn, procalcitonin level is 0.85 chest x-ray shows improvement in bibasilar opacities. Patient is very norepinephrine at 0.09 mcg/kg/min he is also on TPN at 30 cc/h propofol at 70 mcg/kg/min and IV fluids 75 cc/h 0.9 normal saline. His sputum came back positive for H. influenzae and MRSA. Patient again is on Zosyn and vancomycin. I am planning today to give the patient a weaning trial, and I did, few hours later I was notified that the patient's weaning parameters where very poor off propofol, hence I recommended that he goes back on propofol, and he is not ready for weaning. Patient evaluated today on 12/18/2023, patient remains in the ICU, intubated mechanically ventilated, patient was on norepinephrine until earlier today, he is to be on norepinephrine at 0.03 mcg/kg/min, remains on assist-control rate of 24 tidal volume 400 FiO2 50% and PEEP of 8. ABG today showed a pO2 of 73 pCO2 47 pH of 7.38. Hence no changes were made in his ventilator settings. I did establish a left brachial arterial line in this patient for hemodynamic monitoring and blood gases monitoring on a daily basis. Patient had difficult access, he does have a left subclavian central line and now he has a left brac hial arterial line. Patient is on TPN he is also on propofol and he is on IV fluid at 20 cc/h. Remains on vancomycin and Zosyn for haemophilus influenza and MRSA in the sputum. Today I plan to give the patient a weaning trial again I would like to switch him to pressure support and CPAP, and I would like to see if the patient tolerates coming off propofol and use Precedex instead. Chest x- ray continues to show some right basilar airspace disease, improved compared to his initial chest x-ray on admission Patient was evaluated today on 12/19/2023, is in the ICU, intubated and mechanically ventilated however the patient has been on pressure support of 12 and CPAP over the last 24 hours, seems to be tolerating that quite well. ABG this morning showed a pO2 of 70 pCO2 42 pH of 7.42 and this was on 50% with a pressure support of 12/6/50% pressures was cut down to 10 and he continued to michel ve adequate tidal volumes patient seems to be very awake, he is on Precedex off propofol off other sedatives, remains on vancomycin and Zosyn his TPN is at 50 cc/h, reviewed his chest x-ray showed evidence of edema and the patient was given a dose of Lasix with excellent urine output after the Lasix given.WBC count is 3.8 hemoglobin is 10.9.Basic metabolic profile is normal BUN is 7 creatinine 0.33 Patient was seen today on 12/20/2023, remains in the ICU, he was extubated yesterday uneventfully. However required to go on BiPAP at night since his pulmonary status is marginal. To have significant airspace disease and possibly pulmonary edema involving the right lung mostly. Patient remains on antibiotics in the form of Zosyn and on vancomycin. Remains on diuretics, patient has significant urine output this morning hence I held back on diuretics today.Patient is comfortable, he is on BiPAP, 12/6/50% and I cut it down to 45% and remains on TPN. WBC count is 3.5 hemoglobin 11.3, Basic metabolic profile is normal BUN is 12 creatinine 0.36 Patient was seen today on 12/21/2023, remains in the ICU on 4 L nasal cannula tolerated the extubation very well over the last 2 days, patient is gradually improving, clinically better. Procalcitonin today 0.19, chest x-ray continues to show some interstitial edema especially on the right side, patient is improving with Lasix, more Lasix was given today.Antibiotics have been discontinued today WBC count is 4.3 hemoglobin 11.7 basic metabolic profile is normal renal profile is normal Patient was seen today on 12/22/2023, remains on 4 L nasal cannula, patient is now out of the ICU on the cardiac floor/3 S., gradually getting better, not in any distress, feels much better today compared to how he felt when he came in. Remains on antibiotics remains on bronchodilators, patient has a chronic PICC line that was removed on this admission and had a central line placed, the plan is to replace his PICC line and this will be done hopefully tomorrow. Then his central line will be discontinued labs today showed relatively normal electrolytes normal renal profile. Patient was treated for MRSA and for haemophilus influenza positive cultures and antibiotics have been discontinued Progress note dated December 23, 2023. The patient is seen today in room 367. This is a 48-year-old male who was admitted with a diagnosis of shortness of breath, and respiratory failure. Currently, he is on 4 L nasal cannula. He is getting TPN at 90 cc an hour, and saline at 20 cc an hour. Saturations are 92%. Current laboratory data includes a sodium 136, potassium 3.8, chlorides 94, CO2 39, BUN 21, creatinine 0.44. Glucose is 204. Calcium 8.8, phosphorus 2.7, magnesium 2.1. Sputum from December 12 and revealed evidence of Haemophilus influenzae. Nasal swab from December 13 reveals methicillin-resistant Staph aureus. Progress note dated December 24, 2023. 48-year-old male is seen in room 367. He was admitted with a diagnosis of shor tness of breath, and respiratory failure. Currently, the patient is on 3 L nasal cannula. He is getting saline at 20 cc an hour. He is also getting TPN at 120 cc an hour. Labs today include a white count 5.6, hemoglobin 13.3, hematocrit 43.8, and a normal platelet count. Sodium 133, potassium 3.9, chlorides 98, CO2 33, BUN 31, creatinine 0.56. Glucose is 166. Albumin is 3.2. Objective - Vital Signs Vital signs: Vital Signs Temp 98.1 F 12/24/23 11:39 Pulse 80 12/24/23 12:22 Resp 17 12/24/23 11:39 BP 106/63 12/24/23 11:39 Pulse Ox 95 12/24/23 11:39 FiO2 50 12/20/23 08:07 Intake & Output 12/23/23 12/24/23 12/24/23 18:59 06:59 18:59 Intake Total 480 1046 Output Total 2750 1625 Balance -2270 -1625 1046 Weight 97.3 kg Intake: Intake, IV Titration 1046 Amount Potassium Chloride 14 meq 1046 Magnesium Sulfate gm 1.5 gm Potassium Phosphate 18 mmol Sodium Chloride 4Meq/ml Vial 80 meq Calcium Gluconate 1 gm In Amino Acid 5%-D15w 1,000 ml @ 120 mls/hr IV .[facility] Rx#: [id number] Oral 480 Output: Urine 1550 725 Stool 1200 900 Other: Voiding Method Indwelling Catheter Indwelling Catheter Indwelling Catheter ABP, PAP, CO, CI - Last Documented Arterial Blood Pressure 138/57 - Exam No acute distress, oriented 3. Currently on 3 L nasal cannula. HEENT examination is grossly unremarkable. Mucous membranes are moist. No oral lesions. Neck supple. Full range of motion. No adenopathy thyromegaly or neck vein distention. Cardiovascular examination reveals regular rhythm rate. S1-S2 normal. No S3 or S4. No discernible murmur noted. Lungs reveal scattered bilateral rhonchi. No wheezes or crackles. Breath sounds equal bilaterally. Abdomen examination reveals a midline dressing from previous surgery, midline abdominal incision, which is well-healed, and ileostomy, and anterior abdominal wall fistula. Extremities are intact. No cyanosis or clubbing. Patient has a right below the knee amputation. Skin is without rash or lesion. Neurologic examination is brief but nonfocal. - Labs CBC & Chem 7: 12/24/23 06:13 12/24/23 06:13 Labs: Abnormal Lab Results - Last 24 Hours (Table) 12/23/23 12/24/23 12/24/23 Range/Units 23:32 05:55 06:13 MCHC (31.0-37.0) g/dL RDW (11.5-15.5) % Sodium 133 L (137-145) mmol/L Carbon Dioxide 33 H (22-30) mmol/L BUN 31 H (9-20) mg/dL Creatinine 0.56 L (0.66-1.25) mg/dL Glucose 200 H (74-99) mg/dL POC Glucose (mg/dL) 190 H 190 H (70-110) mg/dL Albumin 3.2 L (3.5-5.0) g/dL 12/24/23 12/24/23 Range/Units 06:13 12:05 MCHC 30.4 L (31.0-37.0) g/dL RDW 16.2 H (11.5-15.5) % Sodium (137-145) mmol/L Carbon Dioxide (22-30) mmol/L BUN (9-20) mg/dL Creatinine (0.66-1.25) mg/dL Glucose (74-99) mg/dL POC Glucose (mg/dL) 166 H (70-110) mg/dL Albumin (3.5-5.0) g/dL Assessment and Plan Assessment: Acute on chronic hypoxemic respiratory failure, status post intubation and subsequent extubation, on December 19, 2023. Acute right sided pneumonia, with significant mucous plugging, requiring bronch oscopy. Acute on chronic hypercapnic respiratory failure. History of chronic tracheal stenosis, from previous tracheostomy. History of Crohn's disease. Right diaphragm elevation, which is chronic. Acute sepsis secondary to Serratia marcescens. History of CVA with right-sided neurologic deficit. History of DVT. History of right below the knee amputation. History of Crohn's disease. History of cardiac arrest, 2021. Obesity. Plan: Plan dated December 23, 2023. The patient is seen today in room 367. He continues on O2 at 4 L. The patient is getting TPN at 90 cc an hour. The patient is also getting saline at 20 cc an hour. His pulmonary examination reveals diffuse rhonchi. We will continue to follow make recommendations along the way. Labs, x-rays, and all medications are reviewed. The patient continues on nutritional support as mentioned above. He also continues with GI and DVT prophylaxis. Prognosis is guarded. Discharge planning underway, and the patient will likely need rehabilitation placement. Plan dated December 24, 2023. The patient is seen today in room 367. He is laying flat in bed, watching TV. The patient does not have any difficulty or distress while breathing. The patient is on 3 L of oxygen. Getting saline at 20 cc an hour, TPN at 120 cc an hour. Labs, x-rays, and all medications are reviewed. He continues on GI and DVT prophylaxis. Discharge planning underway. We will continue to follow. Time with Patient: Less than 30
[2023-12-24] MEDS: FUROSEMIDE 40 MG TAB PO SCH (16:43)
[2023-12-24] MEDS: 1: MVI, ADULT NO.4 WITH VIT K 10 ML, TRACE (CONC-1ML/DOSE) 1 ML, POTASSIUM CHLORIDE 16 M IV SCH (16:43)
[2023-12-24 16:47] LABS: Glucose,Whole Blood 113 mg/dL (70-110)
[2023-12-24 23:52] LABS: Glucose,Whole Blood 187 mg/dL (70-110)
[2023-12-25 06:23] LABS: Glucose,Whole Blood 163 mg/dL (70-110)
[2023-12-25 07:51] LABS: ALT 21 U/L (4-49); African American GFR (CKD) >90 (>60 ml/min/1.73 sqM); Albumin 3.3 g/dL (3.5-5.0); Anion Gap 1 mmol/L; Blood Urea Nitrogen 36 mg/dL (9-20); Calcium 8.8 mg/dL (8.4-10.2); Carbon Dioxide 34 mmol/L (22-30); Chloride 101 mmol/L (98-107); Glucose 174 mg/dL (74-99); Non-African American GFR(CKD) >90 (>60 ml/min/1.73 sqM); Phosphorus 2.8 mg/dL (2.5-4.5); Sodium 136 mmol/L (137-145); Total Bilirubin 0.8 mg/dL (0.2-1.3); Total Protein 7.8 g/dL (6.3-8.2)
[2023-12-25 08:00] LABS: AST 40 U/L (17-59); Magnesium 2.6 mg/dL (1.6-2.3); Potassium 5.3 mmol/L (3.5-5.1)
[2023-12-25 08:01] LABS: Alkaline Phosphatase 78 U/L (38-126)
[2023-12-25 10:07] VITALS: TEMP 97.8
[2023-12-25 11:14] LABS: Glucose,Whole Blood 149 mg/dL (70-110)
[2023-12-25] MEDS: 1: MVI, ADULT NO.4 WITH VIT K 10 ML, TRACE (CONC-1ML/DOSE) 1 ML, SODIUM PHOSPHATE 15 MMO IV SCH (11:25)
[2023-12-25 11:30] VITALS: RESP 17
--- NOTE | 2023-12-25 12:59 | P.DS ---
Providers Date of admission: 12/16/23 10:30 Expected date of discharge: 12/25/23 Attending physician: Chepe Garrett Consults: 12/13/23 08:22 Consult Physician Urgent Consulting Provider: Estela Holt Consult Reason/Comments: hypoxia, cough, possible sleep apnea Do you want consulting provider notified?: Yes 12/23/23 09:24 Consult Physician Routine Consulting Provider: Evelin Medina Consult Reason/Comments: blackburn replacement year old Do you want consulting provider notified?: Yes Primary care physician: [facility] Course: Discharge diagnoses; Right lower lobe pneumonia, complicated by right lung collapse secondary to mucous plug status post bronchoscopy on 12/13 and 12/14. Sputum culture showed haemophilus influenza. Nasal culture showed MRSA. Septic shock secondary to above Acute hypoxic hypercapnic respiratory failure. Was on mechanical ventilator, changed to pressure support. Extubated on 12/19/2023. 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 He has history of respiratory failure requiring tracheostomy insertion with subsequent removal Patient lives at home with his 2 sons. Information were obtained with the help of his mother at bedside. Patient presents to the hospital at this time because of respiratory difficulty, he came to emergency room yesterday for the same reason and he was discharged home, he was noticed to have hypoxia with coughing but that is improved yesterday. At home he have recurrence of his symptoms so he decided to come to emergency room today. Patient somewhat drowsy and could not participate in history however has per mother he is drowsy because of lack of sleep and he is usually more awake. Patient denies chest pain, no abdominal pain, he has ileostomy bag in place with some loose stool, as per mother at bedside this is his normal consistency. He has external urinary catheter. Denies dysuria or urgency. Both legs looks weak, has right BKA, no swelling or cellulitis. Patient is afebrile, he was hypoxic 88% on room air. Slightly tachypneic around 20. He has unremarkable CBC, BMP, liver enzymes, troponin x 1 less than 0.012. proBNP is 21. Influenza A and type B, RSV, SARS (coronavirus) are undetected D-dimer is negative at 0.45 EKG showing sinus rhythm at [address]-T changes Chest x-ray showing low volume but no acute process per radiologist Venous pH is low normal at 7.3, bicarb is elevated 34 and pCO2 is elevated at 62. Patient received prednisone 40 mg and Zithromax prior to hospitalization. 12/13 Patient developed complete collapse of the right lung, which is apparent on the chest x-ray this morning and he is developing more hypoxia he was saturation 77 and 5 L, currently he is kept on BiPAP He has no fever Blood pressure stable 127/64 Patient started on Zosyn also he is on IV Solu-Medrol 40 mg twice daily He is on a Protonix and therapeutic dose of Lovenox Pro- Calcitonin is low at 0.16 pH is low with high pCO2. Patient is going to be transferred to the ICU 12/14 Patient currently remains in the ICU intubated and sedated, also he required a small dose of Levophed for blood pressure support He status post bronchoscopy second 1 today, about 100 milliliter of mucus secretions pulled out. He has evidence of tracheomalacia as well but patent trachea. Bronchoscopy procedure reviewed with pulmonary team He is currently covered with IV vancomycin and Zosyn Cultures are still pending Chest x-ray showing endotracheal tube in position, right lower lobe infiltrate for pneumonia He is also on therapeutic dose of Lovenox continued from home 12/15 Patient remains in the ICU intubated and sedated with pulmonary/critical care team following closely and help with vent management Currently he is also requiring pressors, Levophed at 0.09 mcg/kg/min He is on IV vancomycin and Zosyn S/p bronchoscopy yesterday Sputum culture is growing haemophilus influenzae He is on home dose of Lovenox for 80 mg twice daily He is on normal saline 75 L/h 12/17/2023 Patient is MICU on mechanical ventilator. Patient remains on norepinephrine and is sedated with propofol. On IV hydration with normal saline 75/h. Chest x-ray showed stable portable chest. Clinical correlation and follow-up on resolution is recommended. Laboratory data showed WBC 5.6 hemoglobin 11.9 and platelets 166 sodium 137 potassium 3.5 chloride 112 bicarb is 21 BUN 4 and creatinine 0.37 and blood sugar 120 and magnesium 1.6. TSH within normal limits. Patient is being continued on antibiotics in the form of Zosyn. Sputum culture showed haemophilus influenza. 12/18/2023 Patient is in the MICU. Currently on mechanical ventilator. Patient is also on norepinephrine drip which is being slowed down. Chest x-ray today showed stable portable chest. Clinical correlation and follow-up until resolution is recommended. Patient is being continued on antibiotics and home Zosyn. Also on vancomycin. Laboratory data showed WBC 4.2 hemoglobin 11.4 and platelets 176 sodium 140 potassium 3.2 chloride 112 bicarb is 24 BUN 14 creatinine 0.29 and blood sugar 118 and magnesium 1.8. 12/19/2023 Patient is in the MICU currently on pressure support. Patient is otherwise awake alert and oriented. No complaints of chest pain or shortness of breath. No nausea or vomiting. Patient on TPN. Continued on antibiotics above vanc omycin and Zosyn. Chest x-ray today showed stable portable chest. Clinical correlation and follow-up on resolution is recommended. Laboratory data showed WBC 3.8 hemoglobin 10.9 and platelets 159 sodium 138 potassium 3.7 chloride 113 bicarb is 26 BUN 7 creatinine 0.33 and blood sugar 100 and phosphorus 2.3 AST 15 ALT 13 alk phos 69 albumin 2.3 12/20/2023 Patient is seen in the MICU. Patient was on BiPAP yesterday and was extubated later. Awake alert and oriented currently requiring oxygen at 6 L via nasal cannula. Chest x-ray today showed stable chest. Denied any chest pain or worsening shortness of breath. No cough or sputum production. Stool is noted in the ostomy output. Urine output is adequate. Laboratory data showed WBC 3.4 hemoglobin 11.3 and platelets 161 sodium 137 potassium 3.7, bicarb 28 BUN 12 and creatinine 0.36 and blood sugar 136 and calcium 7.9 and magnesium 1.7. Patient remains on antibiotics in the form of vancomycin and Zosyn. Nasal screen showed MRSA and sputum culture showed haemophilus influenza. Critical care team is on board. 12/20. Patient seen and examined. Patient was transferred out of ICU this morning. Currently on 3 S. Patient stated he feels much better. Family at the bedside. Breathing is improved. 12/21. Patient seen and examined. Vital signs this morning temperature 90.1, heart rate 91, blood pressure 114/67. Labs sodium 130, potassium 4.4, BUN 18, creatinine 0.44 12/22. Patient seen and examined. Patient needs his PICC line replaced, vascular surgery consulted. 12/23. Patient seen and examined. Vascular surgery consulted for changing of Blackburn catheter, at this time vascular surgery recommend keeping the current catheter as there is no need for Blackburn catheter to be replaced. 12/24. Patient seen and examined. Being discharged home with home care outpatient follow-up with PCP PHYSICAL EXAMINATION: GENERAL: The patient is alert and oriented x3, ill looking HEENT: Pupils are round and equally reacting to light. EOMI. No scleral icterus. No conjunctival pallor. Normocephalic, atraumatic. No pharyngeal erythema. No thyromegaly. CARDIOVASCULAR: S1 and S2 present. No murmurs, rubs, or gallops. PULMONARY: Diminished breath sound the bases bilaterally ABDOMEN: Soft, nontender, nondistended,. Ostomy seen MUSCULOSKELETAL: No joint swelling or deformity. Right BKA EXTREMITIES: No cyanosis, clubbing, or pedal edema. NEUROLOGICAL: Gross neurological examination did not reveal any focal deficits. SKIN: No rashes. Dictation was produced using [employer] dictation software. please excuse any gr ammatical, word or spelling errors. Patient Condition at Discharge: Fair Plan - Discharge Summary Discharge Rx Participant: No New Discharge Prescriptions: New HYDROcodone/APAP 5-325MG [[place] 5-325] 1 each PO Q6HR PRN 3 Days #12 tab PRN Reason: Moderate Pain (Scale 4 To 6) Furosemide [Lasix] 40 mg PO BID@0900,1600 #30 tab amLODIPine [Norvasc] 5 mg PO DAILY #30 tab Continue Enoxaparin [Lovenox] 80 mg SQ BID@0900,2100 Pantoprazole [Protonix] 40 mg PO DAILY@0900 Albuterol Sulfate [Albuterol Sulfate Hfa] 1 - 2 puff PO RT-Q4H PRN PRN Reason: Shortness Of Breath Loperamide HCl [Loperamide] 4 mg PO QID@08,12,16,20 Metoprolol Tartrate [Lopressor] 12.5 mg PO BID@0900,2100 Ferrous Sulfate [Iron (65 MG Elemental)] 325 mg PO DAILY@0900 Vitamin A 2,400 mcg PO DAILY@0900 Omeprazole [PriLOSEC] 40 mg PO DAILY #30 cap Cholecalciferol (Vitamin D3) [Vitamin D3 (1250 Mcg = 50,000 Iu)] 1,250 mcg PO MOTH traZODone HCL [Desyrel] 50 mg PO HS PRN PRN Reason: sleep Heparin Sodium,Porcine/Pf [Heparin 500 Unit/5 ml (100/ml) Flush] 1 dose IV DAILY PRN PRN Reason: picc line flush Sodium Chloride 0.9% [Saline 0.9%] 10 ml IV DAILY PRN PRN Reason: picc line flush Albuterol Inhaler [Ventolin Hfa Inhaler] 2 puff INHALATION QID PRN #8 gm PRN Reason: Cough Discharge Medication List Enoxaparin [Lovenox] 80 mg SQ BID@0900,2100 07/07/22 [History] Pantoprazole [Protonix] 40 mg PO DAILY@0900 07/07/22 [History] Albuterol Sulfate [Albuterol Sulfate Hfa] 1 - 2 puff PO RT-Q4H PRN 09/10/22 [History] Loperamide HCl [Loperamide] 4 mg PO QID@08,12,16,20 11/10/22 [History] Albuterol Inhaler [Ventolin Hfa Inhaler] 2 puff INHALATION QID PRN #8 gm 12/12/23 [Rx] Ferrous Sulfate [Iron (65 MG Elemental)] 325 mg PO DAILY@0900 12/12/23 [History] Heparin Sodium,Porcine/Pf [Heparin 500 Unit/5 ml (100/ml) Flush] 1 dose IV DAILY PRN 12/12/23 [History] Metoprolol Tartrate [Lopressor] 12.5 mg PO BID@0900,2100 12/12/23 [History] Omeprazole [PriLOSEC] 40 mg PO DAILY #30 cap 12/12/23 [Rx] Sodium Chloride 0.9% [Saline 0.9%] 10 ml IV DAILY PRN 12/12/23 [History] Vitamin A 2,400 mcg PO DAILY@0900 12/12/23 [History] traZODone HCL [Desyrel] 50 mg PO HS PRN 12/12/23 [History] Cholecalciferol (Vitamin D3) [Vitamin D3 (1250 Mcg = 50,000 Iu)] 1,250 mcg PO MOTH 12/13/23 [History] Furosemide [Lasix] 40 mg PO BID@0900,1600 #30 tab 12/25/23 [Rx] HYDROcodone/APAP 5-325MG [[place] 5-325] 1 each PO Q6HR PRN 3 Days #12 tab 12/25/23 [Rx] amLODIPine [Norvasc] 5 mg PO DAILY #30 tab 12/25/23 [Rx] Follow up Appointment(s)/Referral(s): Chong Ivey DO [Primary Care Provider] - 1-2 days Estela Holt MD [STAFF PHYSICIAN] - 1-2 days Patient Instructions/Handouts: Acute Bronchitis (ED) Activity/Diet/Wound Care/Special Instructions: As we discussed, follow-up with the pulmonology group to have a sleep study performed to evaluate for sleep apnea Return home with [facility] [phone] Return home with [facility] [phone] Discharge Disposition: HOME WITH HOME HEALTH SERVICES
--- NOTE | 2023-12-25 14:03 | P.PN ---
Subjective Progress Note Date: 12/25/23 Principal diagnosis: Shortness of breath, hypoxemic respiratory failure. This is a 48-year-old male patient, brought into the hospital because of hypoxemia that was noted at home. The patient is not having any worsening shortness of breath. No reported aspiration. Occasional cough and congestion. No significant sputum production. The patient has a very extensive past medical history. He is known to have previous history of Crohn's disease that has been complicated by bowel perforation for which the patient required a bowel resection and currently has an ileostomy. 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 Note that his course was rather complicated following his previous bowel surgery. The patient had prolonged ventilator dependent respiratory failure requiring intubation mechanical ventilation and subsequent tracheostomy tube insertion. The patient also required hemodialysis for renal failure and renal replacement therapy. Ultimately, dialysis has been discontinued as the patient renal function improved and the tracheostomy tube was also eliminated. 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 His last evaluation here in our hospital was and February 2023 and at that time, the patient came into us with generalized weakness and fatigue and he was treated for sepsis/bacteremia and the treatment was successful. He continues to have a port in his left anterior chest area through which she receives TPN to supplement his oral intake. His current white cell count at 6.3 with a heme of 13 and a platelet count of 15 2. Sodium is 138 with a potassium level of 4.7, BUN 16 with a creatinine of 0.33. His UA is negative. Viral screen is also negative. The patient's slightly lethargic. He is arousable and awake. He is currently on 3 L of oxygen by nasal cannula with pulse ox 93%. His chest x-ray shows chronic elevation of the right hemidiaphragm without any acute cardiopulmonary process. The patient has been maintained on anticoagulation on outpatient basis and he is on Lovenox 80 mg subcu every 12 hours. On 12/14/2023, the patient is being seen for a follow-up in the emergency department. The patient was slightly hypoxic and was admitted to the hospital for further investigation. Overnight, the patient's condition became worse. The patient had a repeat chest x-ray earlier this morning and the patient was found to have complete collapse of the right lung with volume loss. There was complete widening out of the right lung. Following that, the patient became progressively hypoxic. The patient had a blood gas that showed a pH of 7.28 with a pCO2 of 78 and pO2 of 63 consistent with an acute on top of chronic respiratory acidosis with significant hypoxemia. Based on that, the patient was placed on a BiPAP at a pressure of 12 over 6 cm of water. Subsequently, the oxygenation improved and the patient got transferred to the ICU. Prior to next discussion with the patient. The patient was awake and alert and he seemed to be able to make his own medical decisions. I also contacted the family members and discussed with them the findings. The findings are consistent with mucous plugging and volume loss and a complete atelectasis of the right lung. The patient will obviously need to be supported with mechanical ventilator and subsequently have a bronchoscopy done regarding the right lung atelectasis. Patient was agreeable to that. I initially attempted to do the bronchoscope under conscious sedation. Give the patient a total of 4 mg of Versed. However, following that, I noted that the patient became progressively more hypoxic while being on high flow nasal oxygen and 100% nonrebreather facemask. Based on that, I intubated the patient. During the intubation process, I noted that it was difficult to push and the #8 orotracheal tube. Later on it was confirmed that t he patient has a component of tracheal stenosis in the upper trachea area. Nevertheless, I was able to pass the ET tube to the level of the tracheal stenosis. There was adequate ventilation at that point. I also inserted the bronchoscope and therapeutic airway suctioning was done with copious amount of thick purulent creamy respiratory secretions were identified in the right lower lobe and right mainstem bronchus. Total amount of volume aspirated from the right lung was in the order of 40 cc of purulent material. The patient was started on a combination of Zosyn and vancomycin. Currently is on propofol at 20 mcg/kg/min. Hemodynamically stable. Postprocedure chest x-ray done showed marked improvement in aeration of the right lung with marked reduction in the right lung atelectasis. There was interval development of a small left-sided pulmonary infiltrates. ET tube was seen in the upper tracheal area. Unable to push in the ET tube any further due to underlying tracheal stenosis. Hemodynamically stable at this point in time. Family has been informed of the changes. The white cell count from this morning is at 10 with a hemoglobin 15 and a platelet count of 155. Sodium is at 138, potassium is 4.4, BUN 21 with a creatinine of 0.36. Currently intubated on the mechanical ventilator. 12/15/2023, patient is being seen for a follow-up. The patient is arousable while being on propofol which is running at 50 mcg/kg/min. He is able to communicate even while being on sedation. As mentioned, he was intubated and placed on mechanical ventilator and copious amounts of mucous plugs was aspirated from the right lung yesterday. This was done following the bronchoscopy. Cultures are still pending for now although there is a preliminary sputum culture that showed haemophilus influenza. The patient is currently on a combination Zosyn and vancomycin. Meanwhile, the patient remains on mechanical ventilator assist-control mode with rate of 24, tidal volume of 400, FiO2 of 60% with a PEEP of 5. Chest x-ray still showing atelectatic changes right lung base. There is improved aeration of the right lung in general. The blood gas showed a pH of 7.5 with a pCO2 of 45 and a pO2 of 75. The blood work shows a white cell count of 13.4 with a hemoglobin of 12.4 and platelet count of 196. Sodium is 136, potassium is at 4.5, BUN is 18 with a creatinine of 0.35. The patient is also on IV fluids with normal saline at rate of 75 cc an hour. He is on norepinephrine at 0.04 mcg/kg/min. No other significant events overnight. Output from the abdominal fistulas and ileostomy has been noted. Later today on 12/16/23, patient remains in the ICU, intubated and mechanically ventilated. He is on assist-control rate of 24 tidal volume 400 FiO2 50% and PEEP of 5 ABG showed a pO2 of 82 pCO2 43 pH of 7.39. Patient remains on norepinephrine at 0.09 mcg/kg/min on propofol at 60 mcg/kg/min he is also on TPN. Patient is receiving vancomycin and Zosyn for what seems to be haemophilus influenza pneumonia, may consider stopping vancomycin and continue Zosyn. Blood cultures are pending, cultures from BAL are pending. Procalcitonin level is 0.85. Chest x-ray continues to show extensive disease involving the right lower lobe and left lower lobe. WBC count is 8 hemoglobin 11.9. Potassium is low at 2.6 being addressed as per protocol. Procalcitonin level is 0.85. C-reactive protein 13.2. According to the nurses patient was appropriate off sedation earlier this morning, but looking at his overall picture and his clinical findings on examination, patient is not ready for weaning and extubation. Patient was evaluated today on 12/17/2023, remains in the ICU, intubated and mechanically ventilated. Patient is on assist-control rate of 24 tidal volume 400 FiO2 60% PEEP increased to 8. ABG not done today, it is pending.WBC count is 5.6 hemoglobin 11.9. Basic metabolic profile is normal BUN is 4 creatinine 0.37 patient remains on vancomycin and Zosyn, procalcitonin level is 0.85 chest x-ray shows improvement in bibasilar opacities. Patient is very norepinephrine at 0.09 mcg/kg/min he is also on TPN at 30 cc/h propofol at 70 mcg/kg/min and IV fluids 75 cc/h 0.9 normal saline. His sputum came back positive for H. influenzae and MRSA. Patient again is on Zosyn and vancomycin. I am planning today to give the patient a weaning trial, and I did, few hours later I was notified that the patient's weaning parameters where very poor off propofol, hence I recommended that he goes back on propofol, and he is not ready for weaning. Patient evaluated today on 12/18/2023, patient remains in the ICU, intubated mechanically ventilated, patient was on norepinephrine until earlier today, he is to be on norepinephrine at 0.03 mcg/kg/min, remains on assist-control rate of 24 tidal volume 400 FiO2 50% and PEEP of 8. ABG today showed a pO2 of 73 pCO2 47 pH of 7.38. Hence no changes were made in his ventilator settings. I did establish a left brachial arterial line in this patient for hemodynamic monitoring and blood gases monitoring on a daily basis. Patient had difficult access, he does have a left subclavian central line and now he has a left brac hial arterial line. Patient is on TPN he is also on propofol and he is on IV fluid at 20 cc/h. Remains on vancomycin and Zosyn for haemophilus influenza and MRSA in the sputum. Today I plan to give the patient a weaning trial again I would like to switch him to pressure support and CPAP, and I would like to see if the patient tolerates coming off propofol and use Precedex instead. Chest x- ray continues to show some right basilar airspace disease, improved compared to his initial chest x-ray on admission Patient was evaluated today on 12/19/2023, is in the ICU, intubated and mechanically ventilated however the patient has been on pressure support of 12 and CPAP over the last 24 hours, seems to be tolerating that quite well. ABG this morning showed a pO2 of 70 pCO2 42 pH of 7.42 and this was on 50% with a pressure support of 12/6/50% pressures was cut down to 10 and he continued to michel ve adequate tidal volumes patient seems to be very awake, he is on Precedex off propofol off other sedatives, remains on vancomycin and Zosyn his TPN is at 50 cc/h, reviewed his chest x-ray showed evidence of edema and the patient was given a dose of Lasix with excellent urine output after the Lasix given.WBC count is 3.8 hemoglobin is 10.9.Basic metabolic profile is normal BUN is 7 creatinine 0.33 Patient was seen today on 12/20/2023, remains in the ICU, he was extubated yesterday uneventfully. However required to go on BiPAP at night since his pulmonary status is marginal. To have significant airspace disease and possibly pulmonary edema involving the right lung mostly. Patient remains on antibiotics in the form of Zosyn and on vancomycin. Remains on diuretics, patient has significant urine output this morning hence I held back on diuretics today.Patient is comfortable, he is on BiPAP, 12/6/50% and I cut it down to 45% and remains on TPN. WBC count is 3.5 hemoglobin 11.3, Basic metabolic profile is normal BUN is 12 creatinine 0.36 Patient was seen today on 12/21/2023, remains in the ICU on 4 L nasal cannula tolerated the extubation very well over the last 2 days, patient is gradually improving, clinically better. Procalcitonin today 0.19, chest x-ray continues to show some interstitial edema especially on the right side, patient is improving with Lasix, more Lasix was given today.Antibiotics have been discontinued today WBC count is 4.3 hemoglobin 11.7 basic metabolic profile is normal renal profile is normal Patient was seen today on 12/22/2023, remains on 4 L nasal cannula, patient is now out of the ICU on the cardiac floor/3 S., gradually getting better, not in any distress, feels much better today compared to how he felt when he came in. Remains on antibiotics remains on bronchodilators, patient has a chronic PICC line that was removed on this admission and had a central line placed, the plan is to replace his PICC line and this will be done hopefully tomorrow. Then his central line will be discontinued labs today showed relatively normal electrolytes normal renal profile. Patient was treated for MRSA and for haemophilus influenza positive cultures and antibiotics have been discontinued Progress note dated December 23, 2023. The patient is seen today in room 367. This is a 48-year-old male who was admitted with a diagnosis of shortness of breath, and respiratory failure. Currently, he is on 4 L nasal cannula. He is getting TPN at 90 cc an hour, and saline at 20 cc an hour. Saturations are 92%. Current laboratory data includes a sodium 136, potassium 3.8, chlorides 94, CO2 39, BUN 21, creatinine 0.44. Glucose is 204. Calcium 8.8, phosphorus 2.7, magnesium 2.1. Sputum from December 12 and revealed evidence of Haemophilus influenzae. Nasal swab from December 13 reveals methicillin-resistant Staph aureus. Progress note dated December 24, 2023. 48-year-old male is seen in room 367. He was admitted with a diagnosis of shor tness of breath, and respiratory failure. Currently, the patient is on 3 L nasal cannula. He is getting saline at 20 cc an hour. He is also getting TPN at 120 cc an hour. Labs today include a white count 5.6, hemoglobin 13.3, hematocrit 43.8, and a normal platelet count. Sodium 133, potassium 3.9, chlorides 98, CO2 33, BUN 31, creatinine 0.56. Glucose is 166. Albumin is 3.2. Progress note dated December 25, 2023. 48-year-old male seen today in room 367. The patient continues on O2 2 L. No IV fluids. The patient is hoping to be discharged sometime today. Labs today include a sodium 136, potassium 5.3, chlorides 101, CO2 34, BUN 36, creatinine 0.54. Glucose is 149. Albumin is 3.3. Objective - Vital Signs Vital signs: Vital Signs Temp 97.8 F 12/25/23 08:50 Pulse 88 12/25/23 11:50 Resp 17 12/25/23 11:29 BP 118/64 12/25/23 11:29 Pulse Ox 92 L 12/25/23 11:29 FiO2 50 12/20/23 08:07 Intake & Output 12/24/23 12/25/23 12/25/23 18:59 06:59 18:59 Intake Total 1286 740 Output Total 1900 1060 1350 Balance -614 -320 -1350 Weight 55.5 kg Intake: IV 540 Mvi, Adult No.4 with Vit 540 K 10 ml Trace (Conc-1Ml/ Dose) 1 ml Parenteral Electrolytes 20 ml Potassium Acetate 24 meq Magnesium Sulfate gm 0.5 gm Sodium Phosphate 15 mmol In Amino Acids 5 %/ Dextrose 20 % 1,000 ml @ 90 mls/hr IV .[id number] ANNIE Rx#:[id number] Intake, IV Titration 1046 Amount Potassium Chloride 14 meq 1046 Magnesium Sulfate gm 1.5 gm Potassium Phosphate 18 mmol Sodium Chloride 4Meq/ml Vial 80 meq Calcium Gluconate 1 gm In Amino Acid 5%-D15w 1,000 ml @ 120 mls/hr IV .BY DURATION ANNIE Rx#: [id number] Oral 240 200 Output: Urine 900 1000 Stool 1000 1060 350 Other: Voiding Method Indwelling Catheter Indwelling Catheter Indwelling Catheter ABP, PAP, CO, CI - Last Documented Arterial Blood Pressure 138/57 - Exam No acute distress, oriented 3. Currently on 2 L nasal cannula. HEENT examination is grossly unremarkable. Mucous membranes are moist. No oral lesions. Neck supple. Full range of motion. No adenopathy thyromegaly or neck vein distention. Cardiovascular examination reveals regular rhythm rate. S1-S2 normal. No S3 or S4. No discernible murmur noted. Lungs reveal scattered bilateral rhonchi. No wheezes or crackles. Breath sounds equal bilaterally. Abdomen examination reveals a midline dressing from previous surgery, midline a bdominal incision, which is well-healed, and ileostomy, and anterior abdominal wall fistula. Extremities are intact. No cyanosis or clubbing. Patient has a right below the knee amputation. Skin is without rash or lesion. Neurologic examination is brief but nonfocal. - Labs CBC & Chem 7: 12/24/23 06:13 12/25/23 07:02 Labs: Abnormal Lab Results - Last 24 Hours (Table) 12/24/23 12/24/23 12/25/23 Range/Units 16:46 23:51 06:21 Sodium (137-145) mmol/L Potassium (3.5-5.1) mmol/L Carbon Dioxide (22-30) mmol/L BUN (9-20) mg/dL Creatinine (0.66-1.25) mg/dL Glucose (74-99) mg/dL POC Glucose (mg/dL) 113 H 187 H 163 H (70-110) mg/dL Magnesium (1.6-2.3) mg/dL Albumin (3.5-5.0) g/dL 12/25/23 12/25/23 Range/Units 07:02 11:11 Sodium 136 L (137-145) mmol/L Potassium 5.3 H (3.5-5.1) mmol/L Carbon Dioxide 34 H (22-30) mmol/L BUN 36 H (9-20) mg/dL Creatinine 0.54 L (0.66-1.25) mg/dL Glucose 174 H (74-99) mg/dL POC Glucose (mg/dL) 149 H (70-110) mg/dL Magnesium 2.6 H (1.6-2.3) mg/dL Albumin 3.3 L (3.5-5.0) g/dL Assessment and Plan Assessment: Acute on chronic hypoxemic respiratory failure, status post intubation and subsequent extubation, on December 19, 2023. Acute right sided pneumonia, with significant mucous plugging, requiring bronchoscopy. Acute on chronic hypercapnic respiratory failure. History of chronic tracheal stenosis, from previous tracheostomy. History of Crohn's disease. Right diaphragm elevation, which is chronic. Acute sepsis secondary to Serratia marcescens. History of CVA with right-sided neurologic deficit. History of DVT. History of right below the knee amputation. History of Crohn's disease. History of cardiac arrest, 2021. Obesity. Plan: Plan dated December 23, 2023. The patient is seen today in room 367. He continues on O2 at 4 L. The patient is getting TPN at 90 cc an hour. The patient is also getting saline at 20 cc an hour. His pulmonary examination reveals diffuse rhonchi. We will continue to follow make recommendations along the way. Labs, x-rays, and all medications are reviewed. The patient continues on nutritional support as mentioned above. He also continues with GI and DVT prophylaxis. Prognosis is guarded. Discharge planning underway, and the patient will likely need rehabilitation placement. Plan dated December 24, 2023. The patient is seen today in room 367. He is laying flat in bed, watching TV. The patient does not have any difficulty or distress while breathing. The patient is on 3 L of oxygen. Getting saline at 20 cc an hour, TPN at 120 cc an hour. Labs, x-rays, and all medications are reviewed. He continues on GI and DVT prophylaxis. Discharge planning underway. We will continue to follow. Plan dated December 25, 2023. The patient is seen today in room 367. The patient's labs are reviewed. X-rays and medications are reviewed. The patient is currently on 2 L. No IV fluids. The patient is hoping to be discharged sometime later today. From the pulmonary standpoint, the patient is stable. He denies any shortness of breath, cough, wheezing, chest tightness, or phlegm production. We will continue to follow the patient, should he not be discharged. Time with Patient: Less than 30
[2023-12-25 16:27] LABS: Glucose,Whole Blood 148 mg/dL (70-110)
[2023-12-25 16:31] VITALS: BP 141/67; PULSE 86
--- NOTE | 2023-12-30 16:41 | CDI ---
Documentation Clarification Form Date: 12/30/2023 04:23:54 PM From: Bambi Proctor Phone: Admit Date: 12/16/2023 10:30:00 AM Patient Name: Ponce Beckett Visit Number: [id number] Discharge Date: 12/25/2023 05:50:00 PM ATTENTION: The Clinical Documentation Specialists (CDI) and [facility] Coding Staff appreciate your assistance in clarifying documentation. Please respond to the clarification below the line at the bottom and electronically sign. The CDI & [facility] Coding staff will review the response and follow-up if needed. Please note: Queries are made part of the Legal Health Record. If you have any questions, please contact the author of this message via ITS. Doctor/Provider: Estela Holt Conflicting documentation has been found in the medical record. As attending physician, please provide clarification. Morbidly obese per Consult 12/22 Possibleobesity hypoventilation syndrome per H&P Obesity is documented throughout the Progress Notes BMI 17.6 History/Risk Factors: 48yo M, PNA d/t haemophilus influenza, ACH/HRF, acuterespiratory acidosiswith compensatedmetabolic alkalosis, COPD, Hx Crohns w ileostomy, 2fistulain his anterior abdominal Wall, LT upper chest portal to receiveTPN, patient also able to take oral feeding, Hx DVT w BKA, Hx CVALThemiparesis Clinical Indicators: Weight 90.718 kg Height 510 Treatment: Will initiate enteral feeding for nutritional support and monitor the output from the abdominalfistulasand the ileostomy Please clarify which diagnosis is most appropriate: [ x] Morbidly obese with BMI (please provide BMI): [ x ] Obesity hypoventilation syndrome with BMI (please provide BMI): check records and vitals for BMI [ ] Underweight with BMI 17.6 [ ] Malnutrition with BMI 17.6 [ ] Mild [ ] Moderate [ ] Other (please specify) [ ] Unable to determine (Template Last Revised: May 2020) MTDD
== END 2023-12-25 17:50 | disposition home health service (06) | DRG 166 ==
LOC: EC 02:26 → 4SSUR 08:07 → 2SICU 12-14 09:57 → OBSVTOIN 12-16 10:30 → 3SCARD 12-21 11:23
PROVIDERS: ADMIT Hospitalist; ATTEND Hospitalist
PROC: 0WCQ8ZZ Extirpation of Matter from Respiratory Tract, Via Natural or Artificial Opening Endoscopic (ICD-10-PCS; principal; 2023-12-14)
PROC: 5A1945Z Respiratory Ventilation, 24-96 Consecutive Hours (ICD-10-PCS; 2023-12-14)
PROC: 0BH18EZ Insertion of Endotracheal Airway into Trachea, Via Natural or Artificial Opening Endoscopic (ICD-10-PCS; 2023-12-14)
PROC: 0B9F8ZX Drainage of Right Lower Lung Lobe, Via Natural or Artificial Opening Endoscopic, Diagnostic (ICD-10-PCS; 2023-12-14)
PROC: 5A09357 Assistance with Respiratory Ventilation, Less than 24 Consecutive Hours, Continuous Positive Airway Pressure (ICD-10-PCS; 2023-12-14)
PROC: 3E033XZ Introduction of Vasopressor into Peripheral Vein, Percutaneous Approach (ICD-10-PCS; 2023-12-14)
PROC: 0WCQ8ZZ Extirpation of Matter from Respiratory Tract, Via Natural or Artificial Opening Endoscopic (ICD-10-PCS; 2023-12-15)
PROC: 03HY32Z Insertion of Monitoring Device into Upper Artery, Percutaneous Approach (ICD-10-PCS; 2023-12-16)
PROC: 4A133B1 Monitoring of Arterial Pressure, Peripheral, Percutaneous Approach (ICD-10-PCS; 2023-12-16)
PROC: 4A133J1 Monitoring of Arterial Pulse, Peripheral, Percutaneous Approach (ICD-10-PCS; 2023-12-16)
PROC: 3E0336Z Introduction of Nutritional Substance into Peripheral Vein, Percutaneous Approach (ICD-10-PCS; 2023-12-16)
PROC: 03HY32Z Insertion of Monitoring Device into Upper Artery, Percutaneous Approach (ICD-10-PCS; 2023-12-18)
PROC: 4A133B1 Monitoring of Arterial Pressure, Peripheral, Percutaneous Approach (ICD-10-PCS; 2023-12-18)
PROC: 4A133J1 Monitoring of Arterial Pulse, Peripheral, Percutaneous Approach (ICD-10-PCS; 2023-12-18)
DX: J14 Pneumonia due to Hemophilus influenzae (principal); A41.53 Sepsis due to Serratia; G93.41 Metabolic encephalopathy; R65.21 Severe sepsis with septic shock; J96.22 Acute and chronic respiratory failure with hypercapnia; J96.21 Acute and chronic respiratory failure with hypoxia; I69.354 Hemiplegia and hemiparesis following cerebral infarction affecting left non-dominant side; K50.90 Crohn's disease, unspecified, without complications; K63.2 Fistula of intestine; E87.4 Mixed disorder of acid-base balance; I47.10 Supraventricular tachycardia, unspecified; J98.11 Atelectasis; Z68.1 Body mass index [BMI] 19.9 or less, adult; E66.2 Morbid (severe) obesity with alveolar hypoventilation; J15.211 Pneumonia due to Methicillin susceptible Staphylococcus aureus; J44.9 Chronic obstructive pulmonary disease, unspecified; Z93.2 Ileostomy status; Z89.511 Acquired absence of right leg below knee; J39.8 Other specified diseases of upper respiratory tract; J98.6 Disorders of diaphragm; Z79.01 Long term (current) use of anticoagulants; Z86.74 Personal history of sudden cardiac arrest; B96.3 Hemophilus influenzae [H. influenzae] as the cause of diseases classified elsewhere; B95.62 Methicillin resistant Staphylococcus aureus infection as the cause of diseases classified elsewhere; J98.4 Other disorders of lung; R53.81 Other malaise; Z79.899 Other long term (current) drug therapy; Z87.891 Personal history of nicotine dependence; Z86.718 Personal history of other venous thrombosis and embolism; Z11.52 Encounter for screening for COVID-19; Z86.14 Personal history of Methicillin resistant Staphylococcus aureus infection; Z68.28 Body mass index [BMI] 28.0-28.9, adult
CPT/HCPCS: 36415; 36600; 71045; 80048; 80053; 80202; 81001; 82330; 82803; 82805; 83605; 83735; 83880; 84100; 84132; 84145; 84443; 84478; 84484; 85025; 85379; 85610; 85652; 85730; 86140; 87040; 87070; 87205; 87636; 93005; 94002; 94003; 94640; 94660; 94760; 96372; 99285

== ENCOUNTER 2023-12-26 11:47 | Inpatient (IN) | payer OTHER ==
--- NOTE | 2023-12-26 13:04 | ED ---
General Adult HPI - General Stated complaint: Failure To Thrive Time Seen by Provider: 12/26/23 12:02 Source: patient, EMS, RN notes reviewed Mode of arrival: EMS Limitations: physical limitation - History of Present Illness Initial comments: 48-year-old male presents emergency department via EMS for evaluation. Patient was admitted and discharged yesterday for pneumonia, respiratory failure and failure to thrive. Patient was discharged home with resources but did not have appropriate resources including TPN orders, attending, further medical care at home. Patient was sent in to have arrangements made. Patient states he has no specific complaint at this time does have left chest Vivas for TPN he denies any increasing shortness of breath denies any abdominal pain chest pain. - Related Data Home Medications Medication Instructions Recorded Confirmed Enoxaparin [Lovenox] 80 mg SQ BID@899,209907/07/22 12/26/23 Pantoprazole [Protonix] 40 mg PO DAILY@89907/07/22 12/26/23 Albuterol Sulfate [Albuterol 1 - 2 puff PO RT-Q4H PRN 09/10/22 12/26/23 Sulfate Hfa] Loperamide HCl [Loperamide] 4 mg PO QID@08,12,16,20 11/10/22 12/26/23 Ferrous Sulfate [Iron (65 MG 325 mg PO DAILY@89912/12/23 12/26/23 Elemental)] Heparin Sodium,Porcine/Pf [Heparin 1 dose IV DAILY PRN 12/12/23 12/26/23 500 Unit/5 ml (100/ml) Flush] Metoprolol Tartrate [Lopressor] 12.5 mg PO BID@899,209912/12/23 12/26/23 Sodium Chloride 0.9% [Saline 0.9%] 10 ml IV DAILY PRN 12/12/23 12/26/23 Vitamin A 2,400 mcg PO DAILY@89912/12/23 12/26/23 traZODone HCL [Desyrel] 50 mg PO HS PRN 12/12/23 12/26/23 Cholecalciferol (Vitamin D3) 1,250 mcg PO MOTH 12/13/23 12/26/23 [Vitamin D3 (1250 Mcg = 50,000 Iu)] HYDROcodone/APAP 5-325MG [[place] 1 tab PO Q6HR PRN 12/26/23 12/26/23 5-325] Previous Rx's Medication Instructions Recorded Omeprazole [PriLOSEC] 40 mg PO DAILY #30 cap 12/12/23 Furosemide [Lasix] 40 mg PO BID@0900,1600 #30 tab 12/25/23 Potassium Chloride ER [K-Dur 20] 20 meq PO DAILY #30 tab 12/25/23 amLODIPine [Norvasc] 5 mg PO DAILY #30 tab 12/25/23 Allergies Allergy/AdvReac Type Severity Reaction Status Date / Time No Known Allergies Allergy Verified 12/26/23 12:48 Review of Systems ROS Statement: Those systems with pertinent positive or pertinent negative responses have been documented in the HPI. ROS Other: All systems not noted in ROS Statement are negative. Past Medical History Past Medical History: CVA/TIA, Deep Vein Thrombosis (DVT) Additional Past Medical History / Comment(s): Progressing left upper thigh pain and swelling and left leg weakness. 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 Crohns. Ostomy Bag placed in 09/2021. History of Any Multi-Drug Resistant Organisms: MRSA Date of last positivie culture/infection: 12/14/23 MDRO Source:: MRSA- nasal Past Surgical History: Cholecystectomy, Orthopedic Surgery Additional Past Surgical History / Comment(s): Arm surgery, right leg below knee amputation, ostomy (2021) Past Anesthesia/Blood Transfusion Reactions: No Reported Reaction Past Psychological History: No Psychological Hx Reported Smoking Status: Former smoker Past Alcohol Use History: None Reported Past Drug Use History: None Reported - Past Family History Father Additional Family Medical History / Comment(s): DAD IN HIS TWENTIES - CAUSE UNKNOWN. Mother Family Medical History: Diabetes Mellitus Brother(s) Family Medical History: Cancer Additional Family Medical History / Comment(s): Kidney cancer as a baby. General Exam Limitations: physical limitation General appearance: alert, in no apparent distress Head exam: Present: atraumatic, normocephalic, normal inspection Eye exam: Present: normal appearance, PERRL, EOMI. Absent: scleral icterus, conjunctival injection, periorbital swelling ENT exam: Present: normal exam, mucous membranes moist Neck exam: Present: normal inspection, full ROM. Absent: tenderness, meningismus, lymphadenopathy Respiratory exam: Present: rhonchi, other (Left sided Vivas). Absent: normal lung sounds bilaterally, respiratory distress, wheezes, rales, stridor Cardiovascular Exam: Present: regular rate, normal rhythm, normal heart sounds. Absent: systolic murmur, diastolic murmur, rubs, gallop, clicks GI/Abdominal exam: Present: soft, normal bowel sounds, other (Ostomy noted). Absent: distended, tenderness, guarding, rebound, rigid Extremities exam: Present: other (Right arm deformity, limited movement of ext remities) Neurological exam: Present: alert, oriented X3 Skin exam: Present: warm, dry, intact, normal color. Absent: rash Course Vital Signs 12/26/23 12:18 Temperature 98.4 F Pulse Rate 92 Respiratory 16 Rate Blood Pressure 120/63 O2 Sat by Pulse 95 Oximetry Medical Decision Making - Medical Decision Making Was pt. sent in by a medical professional or institution (, PA, [employer], urgent care, hospital, or [facility]...) When possible be specific @ -Visiting nurse Did you speak to anyone other than the patient for history (EMS, parent, family, police, friend...)? What history was obtained from this source @ -No Did you review nursing and triage notes (agree or disagree)? Why? @ -I reviewed and agree with nursing and triage notes Were old charts reviewed (outside hosp., previous admission, EMS record, old EKG, old radiological studies, urgent care reports/EKG's, [facility] records)? Report findings @ -Recent inpatient records, consultations, laboratory studies Differential Diagnosis (chest pain, altered mental status, abdominal pain women, abdominal pain men, vaginal bleeding, weakness, fever, dyspnea, syncope, headache, dizziness, GI bleed, back pain, seizure, CVA, palpatations, mental health, musculoskeletal)? @ -Failure to thrive, pneumonia, weakness, inability ambulate EKG interpreted by me (3pts min.). @ -None X-rays interpreted by me (1pt min.). @ -None done CT interpreted by me (1pt min.). @ -None done U/S interpreted by me (1pt. min.). @ -None done What testing was considered but not performed or refused? (CT, X-rays, U/S, labs)? Why? @ -None What meds were considered but not given or refused? Why? @ -None Did you discuss the management of the patient with other professionals (professionals i.e. , PA, [employer], lab, RT, psych nurse, hospice social worker, underwater roboticist, teacher, special weapons unit officer, watch caser)? Give summary @ -EMH for admission Was smoking cessation discussed for >3mins.? @ -No Was critical care preformed (if so, how long)? @ -No Were there social determinants of health that impacted care today? How? (Homelessness, low income, unemployed, alcoholism, drug addiction, transportation, low edu. Level, literacy, decrease access to med. care, fpc, rehab)? @ -No Was there de-escalation of care discussed even if they declined (Discuss DNR or withdrawal of care, Hospice)? DNR status @ -No What co-morbidities impacted this encounter? (DM, HTN, Smoking, COPD, CAD, Cancer, CVA, ARF, Chemo, Hep., AIDS, mental health diagnosis, sleep apnea, morbid obesity)? @ -None Was patient admitted / discharged? Hospital course, mention meds given and route, prescriptions, significant lab abnormalities, going to OR and other pertinent info. @ -Patient is admitted pending further care and arrangement of home treatment Undiagnosed new problem with uncertain prognosis? @ -No Drug Therapy requiring intensive monitoring for toxicity (Heparin, Nitro, Insulin, Cardizem)? @ -No Were any procedures done? @ -No Diagnosis/symptom? @ -Failure to thrive Acute, or Chronic, or Acute on Chronic? @ -Acute Uncomplicated (without systemic symptoms) or Complicated (systemic symptoms)? @ -complicated Side effects of treatment? @ -No Exacerbation, Progression, or Severe Exacerbation? @ -No Poses a threat to life or bodily function? How? (Chest pain, [place], [place], pneumonia, PE, COPD, DKA, ARF, appy, cholecystitis, CVA, Diverticulitis, Homicidal, Suicidal, threat to staff... and all critical care pts) @ -No Disposition Clinical Impression: Weakness, Pneumonia, Failure to thrive Disposition: ADMITTED IP TO THIS [facility] Condition: Fair Referrals: [facility] [NON-STAFF] - Chong Ivey DO [Primary Care Provider] - 12/31/23 10:30 am (Appointment for physician to follow for TPN and Home Care. ) [facility] [REFERRING] - Time of Disposition: 13:13
[2023-12-26] MEDS ORDERED: NALOXONE 0.4 MG/ML 1 ML VIAL IV PRN (13:13)
[2023-12-26 13:34] LABS: Anisocytosis Slight; Basophils % (A) 0 %; Eosinophils # (A) 0.1 k/uL (0-0.7); Eosinophils % (A) 2 %; HCT 45.9 % (39.0-53.0); HGB 13.7 gm/dL (13.0-17.5); Hypochromasia Marked; Lymphocytes # (A) 1.7 k/uL (1.0-4.8); Lymphocytes % (A) 26 %; MCH 26.9 pg (25.0-35.0); MCHC 29.9 g/dL (31.0-37.0); MCV 89.9 fL (80.0-100.0); Mean Platelet Volume 9.4; Monocytes # (A) 0.2 k/uL (0-1.0); Monocytes % (A) 4 %; Neutrophils % (A) 64 %; Platelet Count 264 k/uL (150-450); RDW 16.1 % (11.5-15.5); WBC 6.3 k/uL (3.8-10.6)
[2023-12-26 13:46] LABS: ALT 28 U/L (4-49); African American GFR (CKD) >90 (>60 ml/min/1.73 sqM); Albumin 3.9 g/dL (3.5-5.0); Anion Gap 4 mmol/L; Blood Urea Nitrogen 21 mg/dL (9-20); Calcium 9.7 mg/dL (8.4-10.2); Carbon Dioxide 31 mmol/L (22-30); Chloride 103 mmol/L (98-107); Glucose 84 mg/dL (74-99); Non-African American GFR(CKD) >90 (>60 ml/min/1.73 sqM); Sodium 138 mmol/L (137-145); Total Bilirubin 1.1 mg/dL (0.2-1.3)
[2023-12-26 13:50] LABS: AST 47 U/L (17-59); Alkaline Phosphatase 133 U/L (38-126); Magnesium 1.8 mg/dL (1.6-2.3); Phosphorus 2.4 mg/dL (2.5-4.5); Potassium 4.9 mmol/L (3.5-5.1)
--- NOTE | 2023-12-26 14:16 | P.HPIM ---
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 Patient came back to the ER today because of debility and having issues with his TPN supplies. There has been some issues with primary care appointments and orders with TPN requiring signature from his PCP. At this time patient denies any chest pain or shortness of breath. There was no complaint of fever or chills. Denies any nausea, vomiting, abdominal pain. Denies any lightheaded dizziness. Initial lab work done in the ER showed W6.3, hemoglobin 20.7, platelet count 264, sodium 130, potassium 4.9, BUN 20, creatinine 0.41, phosphorus 2.4, alk phos 133, total protein 9 Patient admitted to internal medicine service REVIEW OF SYSTEMS: CONSTITUTIONAL: No fever, no malaise, no fatigue. HEENT: No recent visual problems or hearing problems. Denied any sore throat. CARDIOVASCULAR: No chest pain, orthopnea, PND, no palpitations, no syncope. PULMONARY: No shortness of breath, no cough, no hemoptysis. GASTROINTESTINAL: No diarrhea, no nausea, no vomiting, no abdominal pain. NEUROLOGICAL: No headaches, no weakness, no numbness. HEMATOLOGICAL: Denies any bleeding or petechiae. GENITOURINARY: Denies any burning micturition, frequency, or urgency. MUSCULOSKELETAL/RHEUMATOLOGICAL: Denies any joint pain, swelling, or any muscle pain. ENDOCRINE: Denies any polyuria or polydipsia. The rest of the 14-point review of systems is negative. PHYSICAL EXAMINATION: GENERAL: The patient is alert and oriented x3, ill looking HEENT: Pupils are round and equally reacting to light. EOMI. No scleral icterus. No conjunctival pallor. Normocephalic, atraumatic. No pharyngeal erythema. No thyromegaly. CARDIOVASCULAR: S1 and S2 present. No murmurs, rubs, or gallops. PULMONARY: Diminished breath sound the bases bilaterally ABDOMEN: Soft, nontender, nondistended,. Ostomy seen MUSCULOSKELETAL: No joint swelling or deformity. Right BKA EXTREMITIES: No cyanosis, clubbing, or pedal edema. NEUROLOGICAL: Gross neurological examination did not reveal any focal deficits. SKIN: No rashes. 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 Labs and medication were reviewed.. Continue same treatment. Continue with symptomatic treatment. Resume home medication. Monitor labs and vitals. DVT and GI prophylaxis. Further recommendations as per clinical course of the patient Dictation was produced using [employer] dictation software. please excuse any grammatical, word or spelling errors. Past Medical History Past Medical History: CVA/TIA, Deep Vein Thrombosis (DVT) Additional Past Medical History / Comment(s): Progressing left upper thigh pain and swelling and left leg weakness. 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 Crohns. Ostomy Bag placed in 09/2021. History of Any Multi-Drug Resistant Organisms: MRSA Date of last positivie culture/infection: 12/14/23 MDRO Source:: MRSA- nasal Past Surgical History: Cholecystectomy, Orthopedic Surgery Additional Past Surgical History / Comment(s): Arm surgery, right leg below knee amputation, ostomy (2021) Past Anesthesia/Blood Transfusion Reactions: No Reported Reaction Past Psychological History: No Psychological Hx Reported Smoking Status: Former smoker Past Alcohol Use History: None Reported Past Drug Use History: None Reported - Past Family History Father Additional Family Medical History / Comment(s): DAD IN HIS TWENTIES - CAUSE UNKNOWN. Mother Family Medical History: Diabetes Mellitus Brother(s) Family Medical History: Cancer Additional Family Medical History / Comment(s): Kidney cancer as a baby. Medications and Allergies Home Medications Medication Instructions Recorded Confirmed Type Enoxaparin [Lovenox] 80 mg SQ BID@0900,2100 07/07/22 12/26/23 History Pantoprazole [Protonix] 40 mg PO DAILY@0900 07/07/22 12/26/23 History Albuterol Sulfate [Albuterol 1 - 2 puff PO RT-Q4H PRN 09/10/22 12/26/23 History Sulfate Hfa] Loperamide HCl [Loperamide] 4 mg PO QID@08,12,16,20 11/10/22 12/26/23 History Ferrous Sulfate [Iron (65 MG 325 mg PO DAILY@89912/12/23 12/26/23 History Elemental)] Heparin Sodium,Porcine/Pf [Heparin 1 dose IV DAILY PRN 12/12/23 12/26/23 History 500 Unit/5 ml (100/ml) Flush] Metoprolol Tartrate [Lopressor] 12.5 mg PO BID@0900,2100 12/12/23 12/26/23 History Omeprazole [PriLOSEC] 40 mg PO DAILY #30 cap 12/12/23 12/26/23 Rx Sodium Chloride 0.9% [Saline 0.9%] 10 ml IV DAILY PRN 12/12/23 12/26/23 History Vitamin A 2,400 mcg PO DAILY@0912/12/23 12/26/23 History traZODone HCL [Desyrel] 50 mg PO HS PRN 12/12/23 12/26/23 History Cholecalciferol (Vitamin D3) 1,250 mcg PO MOTH 12/13/23 12/26/23 History [Vitamin D3 (1250 Mcg = 50,000 Iu)] Furosemide [Lasix] 40 mg PO BID@0900,1600 #30 tab 12/25/23 12/26/23 Rx Potassium Chloride ER [K-Dur 20] 20 meq PO DAILY #30 tab 12/25/23 12/26/23 Rx amLODIPine [Norvasc] 5 mg PO DAILY #30 tab 12/25/23 12/26/23 Rx HYDROcodone/APAP 5-325MG [[place] 1 tab PO Q6HR PRN 12/26/23 12/26/23 History 5-325] Allergies Allergy/AdvReac Type Severity Reaction Status Date / Time No Known Allergies Allergy Verified 12/26/23 12:48 Physical Exam Vitals: Vital Signs Temp Pulse Resp BP Pulse Ox 12/26/23 12:18 98.4 F 92 16 120/63 95 Intake and Output 12/25/23 12/26/23 12/26/23 22:59 06:59 14:59 Other: Weight 95.254 kg Results CBC & Chem 7: 12/26/23 13:28 12/26/23 13:28 Labs: Abnormal Lab Results - Last 24 Hours (Table) 12/26/23 12/26/23 Range/Units 13:28 13:28 MCHC 29.9 L (31.0-37.0) g/dL RDW 16.1 H (11.5-15.5) % Carbon Dioxide 31 H (22-30) mmol/L BUN 21 H (9-20) mg/dL Creatinine 0.41 L (0.66-1.25) mg/dL Phosphorus 2.4 L (2.5-4.5) mg/dL Alkaline Phosphatase 133 H (38-126) U/L Total Protein 9.0 H (6.3-8.2) g/dL
[2023-12-26] MEDS: FUROSEMIDE 40 MG TAB PO SCH (16:46)
[2023-12-26] MEDS: LOPERAMIDE 2 MG CAP PO SCH (16:46)
[2023-12-26] MEDS: MVI, ADULT NO.4 WITH VIT K 10 ML, TRACE (CONC-1ML/DOSE) 1 ML in AMINO ACID 5%-D15W+LYTE... IV ONE (18:47)
[2023-12-26] MEDS: HYDROcodone/APAP 5-325MG 1 EACH TAB PO PRN (20:59)
[2023-12-26] MEDS: METOPROLOL TARTRATE 12.5 MG TAB PO SCH (21:02)
[2023-12-26] MEDS: ENOXAPARIN 80 MG/0.8 ML SYRINGE SQ SCH (22:48)
[2023-12-26] MEDS: traZODone HCL 50 MG TAB PO PRN (23:21)
[2023-12-27 04:55] LABS: African American GFR (CKD) >90 (>60 ml/min/1.73 sqM); Anion Gap 9 mmol/L; Blood Urea Nitrogen 23 mg/dL (9-20); Calcium 10.1 mg/dL (8.4-10.2); Carbon Dioxide 24 mmol/L (22-30); Chloride 102 mmol/L (98-107); Glucose 123 mg/dL (74-99); Non-African American GFR(CKD) >90 (>60 ml/min/1.73 sqM); Phosphorus 2.5 mg/dL (2.5-4.5); Potassium 4.4 mmol/L (3.5-5.1); Sodium 135 mmol/L (137-145)
[2023-12-27] MEDS: amLODIPine 5 MG TAB PO SCH (08:37)
[2023-12-27] MEDS: POTASSIUM CHLORIDE ER 20 MEQ TAB.ER PO SCH (08:37)
[2023-12-27] MEDS: PANTOPRAZOLE 40 MG TABLET PO SCH (08:37)
[2023-12-27] MEDS: FERROUS SULFATE 325 MG TAB PO SCH (08:37)
[2023-12-27] MEDS ORDERED: PANTOPRAZOLE 40 MG TABLET PO SCH (09:00)
[2023-12-27] MEDS: VITAMIN A 10,000 UNIT (3000 MCG) CAPSULE PO SCH (11:02)
--- NOTE | 2023-12-27 13:15 | P.PN ---
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 Patient came back to the ER today because of debility and having issues with his TPN supplies. There has been some issues with primary care appointments and orders with TPN requiring signature from his PCP. At this time patient denies any chest pain or shortness of breath. There was no complaint of fever or chills. Denies any nausea, vomiting, abdominal pain. Denies any lightheaded dizziness. Initial lab work done in the ER showed W6.3, hemoglobin 20.7, platelet count 264, sodium 130, potassium 4.9, BUN 20, creatinine 0.41, phosphorus 2.4, alk phos 133, total protein 9 Patient admitted to internal medicine service 12/26. Patient seen and examined. Complaining of pain in his right hand. Александр es any shortness of breath REVIEW OF SYSTEMS: CONSTITUTIONAL: No fever, no malaise,. CARDIOVASCULAR: No chest pain, no palpitations, no syncope. PULMONARY: No shortness of breath, no cough, GASTROINTESTINAL: No diarrhea, no nausea, no vomiting, no abdominal pain. NEUROLOGICAL: No headaches, no weakness, PHYSICAL EXAMINATION: GENERAL: The patient is alert and oriented x3, ill looking HEENT: Pupils are round and equally reacting to light. EOMI. No scleral icterus. No conjunctival pallor. Normocephalic, atraumatic. No pharyngeal erythema. No thyromegaly. CARDIOVASCULAR: S1 and S2 present. No murmurs, rubs, or gallops. PULMONARY: Diminished breath sound the bases bilaterally ABDOMEN: Soft, nontender, nondistended,. Ostomy seen MUSCULOSKELETAL: No joint swelling or deformity. Right BKA EXTREMITIES: No cyanosis, clubbing, or pedal edema. NEUROLOGICAL: Gross neurological examination did not reveal any focal deficits. SKIN: No rashes. 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 Continue same treatment. Continue with symptomatic treatment. Resume home medication. Monitor labs and vitals. DVT and GI prophylaxis. Further recommendations as per clinical course of the patient Dictation was produced using [employer] dictation software. please excuse any grammatical, word or spelling errors. Objective - Vital Signs Vital signs: Vital Signs Temp 97.8 F 12/27/23 07:26 Pulse 94 12/27/23 07:26 Resp 20 12/27/23 07:26 BP 127/69 12/27/23 07:26 Pulse Ox 93 L 12/27/23 07:26 FiO2 Intake & Output 12/26/23 12/27/23 12/27/23 18:59 06:59 18:59 Output Total 9450 400 Balance -9450 -400 Weight 95.254 kg 95.254 kg Output: Urine 600 Stool 8850 400 Other: Voiding Method Indwelling Catheter Indwelling Catheter - Labs CBC & Chem 7: 12/26/23 13:28 12/27/23 04:22 Labs: Abnormal Lab Results - Last 24 Hours (Table) 12/26/23 12/26/23 12/27/23 Range/Units 13:28 13:28 04:22 MCHC 29.9 L (31.0-37.0) g/dL RDW 16.1 H (11.5-15.5) % Sodium 135 L (137-145) mmol/L Carbon Dioxide 31 H (22-30) mmol/L BUN 21 H 23 H (9-20) mg/dL Creatinine 0.41 L 0.57 L (0.66-1.25) mg/dL Glucose 123 H (74-99) mg/dL Phosphorus 2.4 L (2.5-4.5) mg/dL Alkaline Phosphatase 133 H (38-126) U/L Total Protein 9.0 H (6.3-8.2) g/dL
[2023-12-27] MEDS: HYDROcodone/APAP 10-325MG 1 EACH TAB PO PRN (15:16)
[2023-12-27] MEDS: 1: MVI, ADULT NO.4 WITH VIT K 10 ML, TRACE (CONC-1ML/DOSE) 1 ML in AMINO ACID 5%-D15W+LY IV SCH (17:47)
[2023-12-27] MEDS: FAT EMULSION 20% 250 ML in EMPTY BAG 1 BAG IV SCH (17:48)
[2023-12-28 08:46] LABS: Anisocytosis Slight; Basophils # (A) 0.1 k/uL (0-0.2); Basophils % (A) 1 %; Eosinophils # (A) 0.3 k/uL (0-0.7); Eosinophils % (A) 3 %; HCT 48.1 % (39.0-53.0); HGB 14.4 gm/dL (13.0-17.5); Hypochromasia Marked; Lymphocytes # (A) 2.9 k/uL (1.0-4.8); Lymphocytes % (A) 30 %; MCH 26.7 pg (25.0-35.0); MCV 89.1 fL (80.0-100.0); Mean Platelet Volume 9.2; Monocytes # (A) 0.3 k/uL (0-1.0); Monocytes % (A) 4 %; Neutrophils # (A) 5.7 k/uL (1.3-7.7); Neutrophils % (A) 60 %; Platelet Count 397 k/uL (150-450); RDW 16.3 % (11.5-15.5); WBC 9.6 k/uL (3.8-10.6)
[2023-12-28 08:59] LABS: Ionized Calcium 5.3 mg/dL (4.5-5.3)
[2023-12-28 09:13] LABS: ALT 59 U/L (4-49); African American GFR (CKD) >90 (>60 ml/min/1.73 sqM); Albumin/Globulin Ratio 0.8; Anion Gap 9 mmol/L; Blood Urea Nitrogen 64 mg/dL (9-20); Calcium 9.7 mg/dL (8.4-10.2); Carbon Dioxide 25 mmol/L (22-30); Chloride 94 mmol/L (98-107); Globulin 5.2 g/dL; Glucose 195 mg/dL (74-99); Non-African American GFR(CKD) >90 (>60 ml/min/1.73 sqM); Sodium 128 mmol/L (137-145); Total Bilirubin 1.1 mg/dL (0.2-1.3); Total Protein 9.2 g/dL (6.3-8.2)
[2023-12-28 09:15] LABS: AST 51 U/L (17-59); Alkaline Phosphatase 119 U/L (38-126); Magnesium 2.1 mg/dL (1.6-2.3); Potassium 5.5 mmol/L (3.5-5.1)
[2023-12-28] MEDS: 1: MVI, ADULT NO.4 WITH VIT K 10 ML, TRACE (CONC-1ML/DOSE) 1 ML, SODIUM CHLORIDE 4MEQ/ML IV SCH (12:02)
--- NOTE | 2023-12-28 14:03 | P.PN ---
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 Patient came back to the ER today because of debility and having issues with his TPN supplies. There has been some issues with primary care appointments and orders with TPN requiring signature from his PCP. At this time patient denies any chest pain or shortness of breath. There was no complaint of fever or chills. Denies any nausea, vomiting, abdominal pain. Denies any lightheaded dizziness. Initial lab work done in the ER showed W6.3, hemoglobin 20.7, platelet count 264, sodium 130, potassium 4.9, BUN 20, creatinine 0.41, phosphorus 2.4, alk phos 133, total protein 9 Patient admitted to internal medicine service 12/26. Patient seen and examined. Complaining of pain in his right hand. Александр es any shortness of breath /12. Patient seen and examined. Potassium level this morning was 5.5, patient was getting potassium supplementation, will DC it for now. REVIEW OF SYSTEMS: CONSTITUTIONAL: No fever, no malaise,. CARDIOVASCULAR: No chest pain, no palpitations, no syncope. PULMONARY: No shortness of breath, no cough, GASTROINTESTINAL: No diarrhea, no nausea, no vomiting, no abdominal pain. NEUROLOGICAL: No headaches, no weakness, PHYSICAL EXAMINATION: GENERAL: The patient is alert and oriented x3, ill looking HEENT: Pupils are round and equally reacting to light. EOMI. No scleral icterus. No conjunctival pallor. Normocephalic, atraumatic. No pharyngeal erythema. No thyromegaly. CARDIOVASCULAR: S1 and S2 present. No murmurs, rubs, or gallops. PULMONARY: Diminished breath sound the bases bilaterally ABDOMEN: Soft, nontender, nondistended,. Ostomy seen MUSCULOSKELETAL: No joint swelling or deformity. Right BKA EXTREMITIES: No cyanosis, clubbing, or pedal edema. NEUROLOGICAL: Gross neurological examination did not reveal any focal deficits. SKIN: No rashes. 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 Continue same treatment. Continue with symptomatic treatment. Resume home medication. Monitor labs and vitals. DVT and GI prophylaxis. Further recommendations as per clinical course of the patient Dictation was produced using [employer] dictation software. please excuse any grammatical, word or spelling errors. Objective - Vital Signs Vital signs: Vital Signs Temp 98.2 F 12/28/23 07:42 Pulse 92 12/28/23 07:42 Resp 16 12/28/23 07:42 BP 107/67 12/28/23 07:42 Pulse Ox 94 L 12/28/23 07:42 FiO2 Intake & Output 12/27/23 12/28/23 12/28/23 18:59 06:59 18:59 Intake Total 1080 696 Output Total 1000 1700 Balance 80 -1700 696 Weight 95.254 kg Intake: Intake, IV Titration 696 Amount Amino Acid 5%-D15w+Lytes* 696 E* 1,000 ml @ 120 mls/hr IV .BY [facility] Rx#: [id number] Oral 1080 Output: Urine 600 Stool 1000 1100 Other: Voiding Method Indwelling Catheter Indwelling Catheter - Labs CBC & Chem 7: 12/28/23 08:04 12/28/23 08:04 Labs: Abnormal Lab Results - Last 24 Hours (Table) 12/28/23 12/28/23 Range/Units 08:04 08:04 MCHC 30.0 L (31.0-37.0) g/dL RDW 16.3 H (11.5-15.5) % Sodium 128 L (137-145) mmol/L Potassium 5.5 H (3.5-5.1) mmol/L Chloride 94 L (98-107) mmol/L BUN 64 H (9-20) mg/dL Glucose 195 H (74-99) mg/dL Phosphorus 6.0 H (2.5-4.5) mg/dL ALT 59 H (4-49) U/L Total Protein 9.2 H (6.3-8.2) g/dL
[2023-12-28] MEDS: SODIUM CHLORIDE 0.65% NASAL SPRAY 44 ML BTL NASAL PRN (18:05)
[2023-12-28] MEDS: ONDANSETRON 4 MG/2 ML VIAL IVP PRN (21:18)
[2023-12-29 06:33] LABS: Glucose,Whole Blood 226 mg/dL (70-110)
[2023-12-29 06:52] LABS: African American GFR (CKD) 59 (>60 ml/min/1.73 sqM); Anion Gap 9 mmol/L; Calcium 9.4 mg/dL (8.4-10.2); Carbon Dioxide 21 mmol/L (22-30); Chloride 94 mmol/L (98-107); Glucose 203 mg/dL (74-99); Magnesium 2.4 mg/dL (1.6-2.3); Non-African American GFR(CKD) 51 (>60 ml/min/1.73 sqM); Phosphorus 4.4 mg/dL (2.5-4.5); Potassium 5.5 mmol/L (3.5-5.1); Sodium 124 mmol/L (137-145)
[2023-12-29] MEDS: SODIUM CHLORIDE 0.9% 500 ML 500 ML IV ONE (06:52)
[2023-12-29 06:55] LABS: Blood Urea Nitrogen 104 mg/dL (9-20)
[2023-12-29 07:02] LABS: Anisocytosis Slight; HCT 45.8 % (39.0-53.0); HGB 14.4 gm/dL (13.0-17.5); Hypochromasia Moderate; MCH 27.4 pg (25.0-35.0); MCHC 31.5 g/dL (31.0-37.0); Mean Platelet Volume 9.8; Platelet Count 420 k/uL (150-450); RBC 5.26 m/uL (4.30-5.90); RDW 16.6 % (11.5-15.5); WBC 10.4 k/uL (3.8-10.6)
[2023-12-29] MEDS: SODIUM CHLORIDE 0.9% 2,000 ML IV ONE (07:30)
[2023-12-29] MEDS: SODIUM CHLORIDE 0.9% 1,000 ML IV SCH (10:13)
[2023-12-29 11:34] LABS: Appearance,Urine Clear (Clear); Bilirubin,Urine Negative (Negative); Blood,Urine Negative (Negative); Color,Urine Light Yellow; Glucose,Urine (UA) Negative (Negative); Ketones,Urine Negative (Negative); Leukocyte Esterase,Urine Negative (Negative); Nitrite,Urine Negative (Negative); Protein,Urine Trace (Negative); Specific Gravity,Urine 1.014 (1.001-1.035); Urobilinogen,Urine <2.0 mg/dL (<2.0)
--- NOTE | 2023-12-29 11:35 | P.NPCON ---
History of Present Illness - Reason for Consult Consult date: 12/29/23 - Chief Complaint Debility - History of Present Illness Presented to hospital after recent discharge being after admitted to the hospital for pneumonia and respiratory failure.Patient came back to the ER today because of debility and having issues with his TPN supplies. There has been some issues with primary care appointments and orders with TPN requiring signature from his PCP. At this time patient denies any chest pain or shortness of breath. There was no complaint of fever or chills. Denies any nausea, vomiting, abdominal pain. Denies any lightheaded dizziness. GENERAL: The patient is alert and oriented x3, ill looking CARDIOVASCULAR: S1 and S2 present. No murmurs, rubs, or gallops. PULMONARY: Diminished breath sound the bases bilaterally ABDOMEN: Soft, nontender, nondistended,. Ostomy seen MUSCULOSKELETAL: No joint swelling or deformity. Right BKA EXTREMITIES: No cyanosis, clubbing, or pedal edema. SKIN: No rashes. Review of Systems Constitutional: Reports as per HPI Past Medical History Past Medical History: CVA/TIA, Deep Vein Thrombosis (DVT) Additional Past Medical History / Comment(s): Progressing left upper thigh pain and swelling and left leg weakness. 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 Crohns. Ostomy Bag placed in 09/2021. History of Any Multi-Drug Resistant Organisms: MRSA Date of last positivie culture/infection: 12/14/23 MDRO Source:: MRSA- nasal Past Surgical History: Cholecystectomy, Orthopedic Surgery Additional Past Surgical History / Comment(s): Arm surgery, right leg below knee amputation, ostomy (2021) Past Anesthesia/Blood Transfusion Reactions: No Reported Reaction Past Psychological History: No Psychological Hx Reported Smoking Status: Former smoker Past Alcohol Use History: None Reported Additional Past Alcohol Use History / Comment(s): QUIT SMOKING IN 2017, STARTED SMOKING AT AGE 16, 1PPD. Past Drug Use History: None Reported - Past Family History Father Additional Family Medical History / Comment(s): DAD IN HIS TWENTIES - CAUSE UNKNOWN. Mother Family Medical History: Diabetes Mellitus Brother(s) Family Medical History: Cancer Additional Family Medical History / Comment(s): Kidney cancer as a baby. Medications and Allergies Home Medications Medication Instructions Recorded Confirmed Type Enoxaparin [Lovenox] 80 mg SQ BID@0900,2100 07/07/22 12/26/23 History Pantoprazole [Protonix] 40 mg PO DAILY@89907/07/22 12/26/23 History Albuterol Sulfate [Albuterol 1 - 2 puff PO RT-Q4H PRN 09/10/22 12/26/23 History Sulfate Hfa] Loperamide HCl [Loperamide] 4 mg PO QID@08,12,16,20 11/10/22 12/26/23 History Ferrous Sulfate [Iron (65 MG 325 mg PO DAILY@89912/12/23 12/26/23 History Elemental)] Heparin Sodium,Porcine/Pf [Heparin 1 dose IV DAILY PRN 12/12/23 12/26/23 History 500 Unit/5 ml (100/ml) Flush] Metoprolol Tartrate [Lopressor] 12.5 mg PO BID@0900,209912/12/23 12/26/23 History Omeprazole [PriLOSEC] 40 mg PO DAILY #30 cap 12/12/23 12/26/23 Rx Sodium Chloride 0.9% [Saline 0.9%] 10 ml IV DAILY PRN 12/12/23 12/26/23 History Vitamin A 2,400 mcg PO DAILY@89912/12/23 12/26/23 History traZODone HCL [Desyrel] 50 mg PO HS PRN 12/12/23 12/26/23 History Cholecalciferol (Vitamin D3) 1,250 mcg PO MOTH 12/13/23 12/26/23 History [Vitamin D3 (1250 Mcg = 50,000 Iu)] Furosemide [Lasix] 40 mg PO BID@0900,1600 #30 tab 12/25/23 12/26/23 Rx Potassium Chloride ER [K-Dur 20] 20 meq PO DAILY #30 tab 12/25/23 12/26/23 Rx amLODIPine [Norvasc] 5 mg PO DAILY #30 tab 12/25/23 12/26/23 Rx HYDROcodone/APAP 5-325MG [[place] 1 tab PO Q6HR PRN 12/26/23 12/26/23 History 5-325] Allergies Allergy/AdvReac Type Severity Reaction Status Date / Time No Known Allergies Allergy Verified 10/10/24 12:48 Physical Exam Vitals: Vital Signs Temp Pulse Resp BP Pulse Ox 12/29/23 09:28 87 112/49 12/29/23 09:25 112/49 12/29/23 09:08 96 12/29/23 08:13 97.7 F 86 19 107/46 100 12/29/23 07:18 94/61 12/29/23 01:41 98.2 F 86 20 90/53 95 12/28/23 19:57 98.7 F 88 18 104/67 96 12/28/23 14:00 97.5 F L 86 16 100/62 95 Intake and Output 12/28/23 12/29/23 12/29/23 22:59 06:59 14:59 Intake Total 2701 Output Total 700 900 Balance 2000 Intake: Intake, IV Titration 2461 Amount Sodium Chloride 4Meq/ml 2461 Vial 40 meq Magnesium Sulfate gm 0.5 gm Calcium Gluconate 1 gm In Amino Acid 5%-D15w 1,000 ml @ 120 mls/hr IV .BY DURATION [facility] Rx#: [id number] Oral 240 Output: Urine 200 Stool 700 700 Other: Voiding Method External Catheter External Catheter Results - Lab Results Most recent lab results Calcium 9.4 mg/dL (8.4-10.2) 12/29/23 06:32 Phosphorus 4.4 mg/dL (2.5-4.5) 12/29/23 06:32 Magnesium 2.4 mg/dL (1.6-2.3) H 12/29/23 06:32 12/29/23 06:33 12/29/23 06:32 Assessment and Plan Assessment: 1. Non-oliguric KILO likely ATN and diuresis. Presented creatinine 0.4, now up to 1.6 today. 2. Hyperkalemia due to potassium supplementation and KILO. 3. Metablic Acidosis due to KILO 4. Hypovoemic Hyponatremia sodium 138 now 124 today 5. History of Crohn disease and bowel perforation now on TPN Plan: Potassium supplementation and Lasix discontinued Agree with IVF Repeat sodium level this afternoon, OK to correct quickly as was normal 48 hours ago Encourage PO intake, fluid restriction 1200cc Check UA and PVR Daily labs and supportive care
[2023-12-29 11:57] LABS: Anisocytosis Slight; Basophils % (A) 0 %; Eosinophils # (A) 0.1 k/uL (0-0.7); Eosinophils % (A) 1 %; HCT 41.2 % (39.0-53.0); HGB 13.1 gm/dL (13.0-17.5); Hypochromasia Moderate; Lymphocytes # (A) 1.4 k/uL (1.0-4.8); Lymphocytes % (A) 19 %; MCHC 31.8 g/dL (31.0-37.0); Mean Platelet Volume 10.1; Monocytes # (A) 0.3 k/uL (0-1.0); Monocytes % (A) 4 %; Neutrophils # (A) 5.3 k/uL (1.3-7.7); Neutrophils % (A) 73 %; Platelet Count 303 k/uL (150-450); Poikilocytosis Slight; RBC 4.68 m/uL (4.30-5.90); RDW 16.4 % (11.5-15.5); WBC 7.3 k/uL (3.8-10.6)
--- NOTE | 2023-12-29 13:48 | P.PN ---
Subjective Progress Note Date: 12/29/23 This is a pleasant 48 years old male with past medical history of Crohn disease complicated with bowel perforation requiring ileostomy, also has 2 fistula in his anterior abdominal Wall, patient also has left upper chest portal to receive TPN who was only discharged yesterday after being admitted to the hospital for pneumonia and respiratory failure was discharged yesterday in stable condition. Patient came back to the ER today because of debility and having issues with his TPN supplies. There has been some issues with primary care appointments and orders with TPN requiring signature from his PCP. At this time patient denies any chest pain or shortness of breath. There was no complaint of fever or chills. Denies any nausea, vomiting, abdominal pain. Denies any lightheaded dizziness. Initial lab work done in the ER showed W6.3, hemoglobin 20.7, platelet count 264, sodium 130, potassium 4.9, BUN 20, creatinine 0.41, phosphorus 2.4, alk phos 133, total protein 9 Patient admitted to internal medicine service 12/26. Patient seen and examined. Complaining of pain in his right hand. Александр es any shortness of breath /. Patient seen and examined. Potassium level this morning was 5.5, patient was getting potassium supplementation, will DC it for now. 12/28. Patient seen and examined. Patient had a rapid response called overnight for low blood pressure, patient was given 2-1/2 L of fluid. Labs on this morning showed WBC 10.4, hemoglobin 14.4, platelet count 420, sodium 124, potassium 5.5, BUN 104, creatinine 1.59. Ostomy output is blood-tinged. REVIEW OF SYSTEMS: CONSTITUTIONAL: No fever, no malaise,. Complaining of lethargy CARDIOVASCULAR: No chest pain, no palpitations, no syncope. PULMONARY: No shortness of breath, no cough, GASTROINTESTINAL: No diarrhea, no nausea, no vomiting, no abdominal pain. NEUROLOGICAL: No headaches, no weakness, PHYSICAL EXAMINATION: GENERAL: The patient is alert and oriented x3, ill looking HEENT: Pupils are round and equally reacting to light. EOMI. No scleral icterus. No conjunctival pallor. Normocephalic, atraumatic. No pharyngeal erythema. No thyromegaly. CARDIOVASCULAR: S1 and S2 present. No murmurs, rubs, or gallops. PULMONARY: Diminished breath sound the bases bilaterally ABDOMEN: Soft, nontender, nondistended,. Ostomy seen MUSCULOSKELETAL: No joint swelling or deformity. Right BKA EXTREMITIES: No cyanosis, clubbing, or pedal edema. NEUROLOGICAL: Gross neurological examination did not reveal any focal deficits. SKIN: No rashes. 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 Case management consulted, patient needs appointment with PCP as soon as possible to be evaluated, working on outpatient TPN supplies Labs and medication were reviewed.. Continue same treatment. Continue with symptomatic treatment. Resume home medication. Monitor labs and vitals. DVT and GI prophylaxis. Further recommendations as per clinical course of the patient Dictation was produced using [employer] dictation software. please excuse any grammatical, word or spelling errors. Objective - Vital Signs Vital signs: Vital Signs Temp 97.7 F 12/29/23 08:13 Pulse 87 12/29/23 09:28 Resp 19 12/29/23 08:13 BP 112/49 12/29/23 09:28 Pulse Ox 96 12/29/23 09:08 FiO2 Intake & Output 12/28/23 12/29/23 12/29/23 18:59 06:59 18:59 Intake Total 2376 1021 Output Total 1600 Balance 2376 -579 Intake: Intake, IV Titration 2136 1021 Amount Amino Acid 5%-D15w+Lytes* 696 E* 1,000 ml @ 120 mls/hr IV .BY DURATION [facility] Rx#: [id number] Sodium Chloride 4Meq/ml 1440 1021 Vial 40 meq Magnesium Sulfate gm 0.5 gm Calcium Gluconate 1 gm In Amino Acid 5%-D15w 1,000 ml @ 120 mls/hr IV .BY DURATION [facility] Rx#: [id number] Oral 240 Output: Urine 200 Stool 1400 Other: Voiding Method Indwelling Catheter External Catheter - Labs CBC & Chem 7: 12/29/23 11:19 12/29/23 06:32 Labs: Abnormal Lab Results - Last 24 Hours (Table) 12/29/23 12/29/23 12/29/23 Range/Units 06:25 06:32 06:33 RDW 16.6 H (11.5-15.5) % Sodium 124 L (137-145) mmol/L Potassium 5.5 H (3.5-5.1) mmol/L Chloride 94 L (98-107) mmol/L Carbon Dioxide 21 L (22-30) mmol/L BUN 104 H* (9-20) mg/dL Creatinine 1.59 H (0.66-1.25) mg/dL Glucose 203 H (74-99) mg/dL POC Glucose (mg/dL) 226 H (70-110) mg/dL Magnesium 2.4 H (1.6-2.3) mg/dL
[2023-12-29] MEDS: 1: MVI, ADULT NO.4 WITH VIT K 10 ML, TRACE (CONC-1ML/DOSE) 1 ML, SODIUM CHLORIDE 4MEQ/ML IV SCH (16:16)
[2023-12-29 16:30] LABS: Glucose,Whole Blood 190 mg/dL (70-110)
[2023-12-29 17:33] LABS: Anisocytosis Slight; HCT 41.8 % (39.0-53.0); HGB 12.2 gm/dL (13.0-17.5); Hypochromasia Marked; MCH 26.5 pg (25.0-35.0); MCHC 29.3 g/dL (31.0-37.0); MCV 90.4 fL (80.0-100.0); Mean Platelet Volume 9.1; Platelet Count 339 k/uL (150-450); RBC 4.62 m/uL (4.30-5.90); RDW 16.3 % (11.5-15.5); WBC 8.1 k/uL (3.8-10.6)
[2023-12-29 17:38] LABS: African American GFR (CKD) >90 (>60 ml/min/1.73 sqM); Anion Gap 7 mmol/L; Carbon Dioxide 17 mmol/L (22-30); Chloride 102 mmol/L (98-107); Glucose 203 mg/dL (74-99); Non-African American GFR(CKD) 89 (>60 ml/min/1.73 sqM); Sodium 126 mmol/L (137-145)
[2023-12-29 18:03] LABS: Blood Urea Nitrogen 102 mg/dL (9-20); Potassium 6.1 mmol/L (3.5-5.1)
[2023-12-29] MEDS: SODIUM ZIRCONIUM CYCLOSILICATE 10 GM PACKET PO SCH (18:47)
[2023-12-29 19:19] LABS: Glucose,Whole Blood 221 mg/dL (70-110)
[2023-12-29 19:43] LABS: Glucose,Whole Blood 277 mg/dL (70-110)
[2023-12-29 20:19] LABS: Anisocytosis Slight; HCT 35.6 % (39.0-53.0); HGB 11.4 gm/dL (13.0-17.5); Hypochromasia Moderate; MCH 27.8 pg (25.0-35.0); MCHC 31.9 g/dL (31.0-37.0); MCV 87.3 fL (80.0-100.0); Mean Platelet Volume 11.8; Poikilocytosis Slight; RBC 4.08 m/uL (4.30-5.90); RDW 16.7 % (11.5-15.5)
--- NOTE | 2023-12-29 21:58 | P.CON ---
Consult Note - . 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 Patient is on TPN. He was discharged a couple days ago after being admitted to the hospital for pneumonia and respiratory failure and was discharged in stable condition. Patient came back to the ER because of debility and having issues with his TPN supplies. There has been some issues with primary care appointments and orders with TPN requiring signature from his PCP. Earlier today, it was noted by the nursing staff that the patient was having some bleeding from his ileostomy which has gradually increased throughout the day. Eventually the bleeding became significant and concerning enough for the patient to be transferred to the ICU. Patients hemoglobin is currently 11.4 from 14.4. I evaluated patient in the ER and spoke to the patient, his son, and his ICU Nurse Ant. At this time, patient has dark clotted blood in his ileostomy bag. The bag was taken down by myself and it is difficult to determine whether the blood is coming from his ileostomy or from one of the enterocutaneous fistulas. Patient and son state he has never had a GI bleed before. Patient denies NSAID use, ETOH, and tobacco use. The patients vitals are currently stable. REVIEW OF SYSTEMS: CONSTITUTIONAL: No fever, no malaise, no fatigue. HEENT: No recent visual problems or hearing problems. Denied any sore throat. CARDIOVASCULAR: No chest pain, orthopnea, PND, no palpitations, no syncope. PULMONARY: No shortness of breath, no cough, no hemoptysis. GASTROINTESTINAL: No diarrhea, no nausea, no vomiting, no abdominal pain. NEUROLOGICAL: No headaches, no weakness, no numbness. HEMATOLOGICAL: Denies any bleeding or petechiae. GENITOURINARY: Denies any burning micturition, frequency, or urgency. MUSCULOSKELETAL/RHEUMATOLOGICAL: Denies any joint pain, swelling, or any muscle pain. ENDOCRINE: Denies any polyuria or polydipsia. PHYSICAL EXAMINATION: GENERAL: The patient is alert and oriented x3, ill looking HEENT: Pupils are round and equally reacting to light. EOMI. No scleral icterus. No conjunctival pallor. Normocephalic, atraumatic. No pharyngeal erythema. No thyromegaly. CARDIOVASCULAR: S1 and S2 present. No murmurs, rubs, or gallops. PULMONARY: Diminished breath sound the bases bilaterally ABDOMEN: Soft, nontender, nondistended,. Ostomy with dark clotted blood in his ileostomy MUSCULOSKELETAL: No joint swelling or deformity. Right BKA EXTREMITIES: No cyanosis, clubbing, or pedal edema. NEUROLOGICAL: Gross neurological examination did not reveal any focal deficits. SKIN: No rashes. Assessment and plan 48 year old male with ileostomy and enterocutaenous fistula secondary to complications from Crohn's Disease evaluated for GI bleed -NPO -IV fluids -Will transfuse the patient 2 units PRBCs -CTA Abdomen/Pelvis Ordered -Coags ordered and pending -Protonix Gtt -q 6 hour H and H -Case discussed with anesthesiologist voice data communications engineer Dr Stevo Salmeron. If patient hemoglobin continues to trend down or should patient should become unstable, will perform EGD bedside in ICU -Cell phone number and pager number given to ICU Nurse Ant and asked to please call me directly with any changes or updates -GI consult to Dr Peterson -Further recs/intervention pending patients clinical course/imaging George Montiel DO [facility] [phone]
[2023-12-29] MEDS ORDERED: NALOXONE 0.4 MG/ML 1 ML VIAL IV PRN (23:59)
--- NOTE | 2023-12-30 | CT ---
EXAM: CT Angiography Abdomen and Pelvis Without and With Intravenous Contrast CLINICAL HISTORY: GI bleed TECHNIQUE: Axial computed tomographic angiography images of the abdomen and pelvis without and with intravenous contrast. CTDI is 216.2 mGy and DLP is 4144. 8 mGy-cm. This CT exam was performed using one or more of the following dose reduction techniques: automated exposure control, adjustment of the mA and/or kV according to patient size, and/or use of iterative reconstruction technique. MIP reconstructed images were created and reviewed. COMPARISON: CT abdomen and pelvis without contrast dated 02/14/2023 FINDINGS: VASCULATURE: Aorta: The aorta is normal in caliber. No dissection or aneurysm. Celiac trunk and mesenteric arteries: The celiac artery and superior mesenteric artery are widely patent. The MALCOLM is patent proximally. No occlusion or significant stenosis. Renal arteries: No acute findings. No occlusion or significant stenosis. Iliac arteries: No acute findings. No occlusion or significant stenosis. Lung bases: Dense consolidation involving both lower lobes with fluid filled air bronchograms. This is similar on the right but is new on the left. ABDOMEN: Liver: Hepatic steatosis. Gallbladder and bile ducts: Cholecystectomy. No ductal dilation. Pancreas: Unremarkable. No ductal dilation. No mass. Spleen: Unremarkable. No splenomegaly. Adrenals: Unremarkable. No mass. Kidneys and ureters: Unremarkable. No obstructing stones. No hydronephrosis. No solid mass. Stomach and bowel: There is a subtle area of active extravasation noted on early arterial phase imaging within the superficial postoperative ventral abdominal wall (series 401; images 150-154; series 404; images 117-122 is (. It is indeterminate whether this area of bleeding lies within a conglomeration superficial bowel loop or is within the postoperative abdominal wall. This also demonstrates slight interval increase in volume on subsequent portal venous phase imaging. No evidence for bowel obstruction. The small bowel remains somewhat adherent to the anterior postoperative abdominal wall when compared to the previous examination. No asymmetric small bowel enhancement noted. Mild to moderate stool burden, primarily in the right colon. No colonic mucosal abnormality. PELVIS: Appendix: No findings to suggest acute appendicitis. Bladder: Unremarkable. No stones. No mass. Reproductive: Unremarkable as visualized. ABDOMEN and PELVIS: Intraperitoneal space: No free intraperitoneal fluid or abscess. No pneumoperitoneum. Bones/joints: No acute fracture. No dislocation. Soft tissues: The appearance of the anterior abdominal wall with diastases of the linea alba and extensive postsurgical changes remain. No significant alteration. Lymph nodes: Unremarkable. No enlarged lymph nodes. Tubes, lines and devices: The previously noted percutaneous drain extending through the presumed right-sided ostomy has been removed. IMPRESSION: 1. There is a subtle area of active extravasation noted on early arterial phase imaging within the superficial postoperative ventral abdominal wall (series 401; images 150-154; series 404; images 117-122 is (. It is indeterminate whether this area of bleeding lies within a conglomeration superficial bowel loop or is within the postoperative abdominal wall. This also demonstrates slight interval increase in volume on subsequent portal venous phase imaging. 2. No evidence for bowel obstruction. The small bowel remains somewhat adherent to the anterior postoperative abdominal wall when compared to the previous examination. No asymmetric small bowel enhancement noted. Mild to moderate stool burden, primarily in the right colon. No colonic mucosal abnormality. 3. Dense consolidation involving both lower lobes with fluid filled air bronchograms. This is similar on the right but is new on the left. Bibasilar pneumonia is suspected. <MYCVCSECTION> Communications: 12/30/23 00:06 Call Doctor Regarding Active Bleeding in any site, called Dr. Montiel on 12/29 00:06 (-04:00)
[2023-12-30] MEDS: NOREPINEPHRINE 4 MG in SODIUM CHLORIDE 0.9% 250 ML IV SCH (00:49)
[2023-12-30] MEDS: PANTOPRAZOLE 40 MG/10 ML VIAL IVP SCH (00:50)
[2023-12-30 00:54] LABS: Anisocytosis Slight; Basophils % (A) 0 %; Eosinophils # (A) 0.1 k/uL (0-0.7); Eosinophils % (A) 1 %; HCT 31.6 % (39.0-53.0); Hypochromasia Marked; Lymphocytes # (A) 1.6 k/uL (1.0-4.8); Lymphocytes % (A) 17 %; MCH 27.6 pg (25.0-35.0); MCHC 31.1 g/dL (31.0-37.0); MCV 88.8 fL (80.0-100.0); Mean Platelet Volume 10.1; Monocytes # (A) 0.3 k/uL (0-1.0); Monocytes % (A) 4 %; Neutrophils # (A) 6.8 k/uL (1.3-7.7); Neutrophils % (A) 75 %; Platelet Count 361 k/uL (150-450); Poikilocytosis Slight; RBC 3.56 m/uL (4.30-5.90); RDW 16.5 % (11.5-15.5); WBC 9.1 k/uL (3.8-10.6)
[2023-12-30 00:55] LABS: HGB 9.8 gm/dL (13.0-17.5)
[2023-12-30 00:57] LABS: Partial Thromboplastin Time 28.4 sec (22.0-30.0); Prothrombin Time 11.2 sec (10.0-12.5)
[2023-12-30] MEDS: PANTOPRAZOLE 40 MG/10 ML VIAL IVP ONE (01:24)
[2023-12-30] MEDS: SODIUM CHLORIDE 0.9% 1,000 ML IV ONE (02:00)
--- NOTE | 2023-12-30 02:31 | P.PN ---
Progress Note - Text Progress Note Date: 12/30/23 CTA Abdomen was performed. The radiologist called me directly and stated there was active extravasation at the level of the abdominal wall near the ileostomy but not necessarily associated the bowel. I reexamined the patient, taking down the ileostomy bag, and removing the clots. I irrigated the area and was able to identify an area of active bleeding to the left of the ileostomy near the midline. I used interrupted #3-0 Nylon Sutures to suture ligate the bleeding vessel which did slow down the active bleeding but did not completely stop it. At this point, I requested a handheld bovie electrocautery from the ER which was brought to the bedside. I was able to cauterize the bleeding vessel which did completely stop the bleeding. I irrigated the area and there was no active bleeding noted. We will continue to monitor the area for active bleeding and follow the patient closely. The patient is currently receiving 1 unit PRBCs and will be transfused a second unit of blood. Nursing staff present during intervention and aware of the plan and will continue to also monitor for further episodes of bleeding. George Montiel DO [facility] [phone]
--- NOTE | 2023-12-30 02:42 | P.CNPUL ---
History of Present Illness Consult date: 12/30/23 Requesting physician: George Montiel Reason for consult: other (ICU management) Chief complaint: Unable to get supplies on discharge History of present illness: Patient is a 48-year-old male with complex past medical history including CVA, previous DVTs, right BKA, cardiac arrest in 2021, Crohn's disease, enterocutaneous fistulas, previous bowel resection. More recently, patient was admitted 12/13/2023 through 12/25/2023 for pneumonia and respiratory failure due to mucous plugging. He was intubated and placed on mechanical ventilator for approximately 6 days. He did have a bronchoscopy with BAL, microbiology positive for haemophilus influenza. Completed his antibiotics. Was discharged home. Unable to get supplies/TPN on discharge, and returned back to the emergency department on 12/26/2023. He was admitted, and while on the general medical floor. Noted to have some bleeding from his ostomy per the RN. This progressively became more copious, is currently dark red with clots. Previously on therapeutic dose of Lovenox, and this has been stopped. Dr. Munoz is aware of this patient, and he did receive 2 L fluid bolus earlier in the day yesterday. Patient is now hypotensive and symptomatic. 2 units of PRBCs are pending. General surgery is consulted and aware. Hemoglobin has dropped from 13.7 on admission, and is currently 9.8 g/dL. Abdominal and pelvis CT showing several areas of active extravasation noted on early arterial phase imaging within the superficial post operative ventral abdominal wall. Indeterminate whether this area of bleeding lies within a conglomeration of superficial bowel loop or is within the postoperative abdominal wall. No evidence of bowel obstruction. Also, dense bibasilar consolidations noted in the lower lobes. Remainder of patient's CBC includes a WBC count 9.1, hemoglobin 9.8, hematocrit 31.6, platelets 361. Coags include a PT of 11.2, INR of 1, PTT of 28.4. Most recent BMP: Sodium 126, potassium 6.1, chloride 102, serum bicarb 17, BUN 102, creatinine 1, glucose 203. Hyperkalemia was treated with Lokelma, and is currently down to 5.8 g/dL. Patient is currently being evaluated in the intensive care unit. He is resting comfortably on room air. Alert and oriented x 3. Cold and diaphoretic. Blood pressure hypotensive, despite receiving an additional 1 L fluid bolus. Patient is going to be started on norepinephrine until blood products become available. Continues to have large volume dark blood with blood clots. No nausea or vomiting or hematemesis. No abdominal pain. General surgery currently evaluating patient, and recommendations to follow. Review of Systems Constitutional: Reports fatigue, Denies chills, Denies fever, Denies weight gain, Denies weight loss Ears, nose, mouth and throat: Denies dysphagia, Denies headache, Denies nasal congestion, Denies nasal discharge, Denies post-nasal drip, Denies sinus pressure, Denies sore throat Cardiovascular: Denies chest pain, Denies lightheadedness, Denies orthopnea, Denies palpitations, Denies paroxysmal nocturnal dyspnea Respiratory: Denies cough, Denies cough with sputum Gastrointestinal: Reports as per HPI Genitourinary: Denies dysuria Musculoskeletal: Denies limitation of motion Integumentary: Denies rash Neurological: Reports paralysis, Reports paresthesias, Denies confusion, Denies headaches, Denies seizures, Denies syncope, Denies visual changes Psychiatric: Denies anxiety, Denies depression Past Medical History Past Medical History: CVA/TIA, Deep Vein Thrombosis (DVT) Additional Past Medical History / Comment(s): Progressing left upper thigh pain and swelling and left leg weakness. 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 Crohns. Ostomy Bag placed in 09/2021. History of Any Multi-Drug Resistant Organisms: MRSA Date of last positivie culture/infection: 12/14/23 MDRO Source:: MRSA- nasal Past Surgical History: Cholecystectomy, Orthopedic Surgery Additional Past Surgical History / Comment(s): Arm surgery, right leg below knee amputation, ostomy (2021) Past Anesthesia/Blood Transfusion Reactions: No Reported Reaction Past Psychological History: No Psychological Hx Reported Smoking Status: Former smoker Past Alcohol Use History: None Reported Additional Past Alcohol Use History / Comment(s): QUIT SMOKING IN 2017, STARTED SMOKING AT AGE 16, 1PPD. Past Drug Use History: None Reported - Past Family History Father Additional Family Medical History / Comment(s): DAD IN HIS TWENTIES - CAUSE UNKNOWN. Mother Family Medical History: Diabetes Mellitus Brother(s) Family Medical History: Cancer Additional Family Medical History / Comment(s): Kidney cancer as a baby. Medications and Allergies Home Medications Medication Instructions Recorded Confirmed Type Enoxaparin [Lovenox] 80 mg SQ BID@899,209907/07/22 12/26/23 History Pantoprazole [Protonix] 40 mg PO DAILY@89907/07/22 12/26/23 History Albuterol Sulfate [Albuterol 1 - 2 puff PO RT-Q4H PRN 09/10/22 12/26/23 History Sulfate Hfa] Loperamide HCl [Loperamide] 4 mg PO QID@08,12,16,20 11/10/22 12/26/23 History Ferrous Sulfate [Iron (65 MG 325 mg PO DAILY@89912/12/23 12/26/23 History Elemental)] Heparin Sodium,Porcine/Pf [Heparin 1 dose IV DAILY PRN 12/12/23 12/26/23 History 500 Unit/5 ml (100/ml) Flush] Metoprolol Tartrate [Lopressor] 12.5 mg PO BID@899,209912/12/23 12/26/23 History Omeprazole [PriLOSEC] 40 mg PO DAILY #30 cap 12/12/23 12/26/23 Rx Sodium Chloride 0.9% [Saline 0.9%] 10 ml IV DAILY PRN 12/12/23 12/26/23 History Vitamin A 2,400 mcg PO DAILY@89912/12/23 12/26/23 History traZODone HCL [Desyrel] 50 mg PO HS PRN 12/12/23 12/26/23 History Cholecalciferol (Vitamin D3) 1,250 mcg PO MOTH 12/13/23 12/26/23 History [Vitamin D3 (1250 Mcg = 50,000 Iu)] Furosemide [Lasix] 40 mg PO BID@0900,1600 #30 tab 12/25/23 12/26/23 Rx Potassium Chloride ER [K-Dur 20] 20 meq PO DAILY #30 tab 12/25/23 12/26/23 Rx amLODIPine [Norvasc] 5 mg PO DAILY #30 tab 12/25/23 12/26/23 Rx HYDROcodone/APAP 5-325MG [[place] 1 tab PO Q6HR PRN 12/26/23 12/26/23 History 5-325] Allergies Allergy/AdvReac Type Severity Reaction Status Date / Time No Known Allergies Allergy Verified 12/26/23 12:48 Physical Exam Vitals: Vital Signs Temp Pulse Resp BP Pulse Ox 12/29/23 19:15 104/56 12/29/23 15:18 97.9 F 84 16 112/62 97 12/29/23 13:12 98.1 F 88 18 118/56 99 12/29/23 11:45 116/54 12/29/23 09:28 87 112/49 12/29/23 09:25 112/49 12/29/23 09:08 96 12/29/23 08:13 97.7 F 86 19 107/46 100 12/29/23 07:18 94/61 Intake and Output 12/29/23 12/29/23 12/30/23 14:59 22:59 06:59 Intake Total 225 150 Output Total 1000 1090 655 Balance -1000 -865 -505 Intake: IV 225 150 Sodium Chloride 0.9% 1, 225 150 000 ml @ 75 mls/hr IV . [id number] [facility] Rx#:[id number] Output: Drainage 600 600 Right Abdomen 600 600 Urine 600 90 55 Stool 400 400 Other: Voiding Method Indwelling Catheter Indwelling Catheter GENERAL EXAM: Alert, 48-year-old male, cold and diaphoretic, blood pressure is hypotensive HEAD: Normocephalic and atraumatic EYES: Normal reaction of pupils, equal size. NOSE: Clear with pink turbinates. THROAT: No erythema or exudates. NECK: No masses, no JVD. CHEST: No chest wall deformity. Left subclavian double-lumen central line LUNGS: Equal air entry with no crackles, wheeze, rhonchi or dullness. On room air. No conversational dyspnea or accessory muscle use.. CVS: S1 and S2 normal with no audible murmur, regular rhythm. No extra heart sounds ABDOMEN: Ileostomy with copious dark red output and clots, estimated at 1 L. Bowel sounds present. Abdomen is soft and nontender. No organomegaly. SPINE: No scoliosis or deformity SKIN: No rashes CENTRAL NERVOUS SYSTEM: No focal deficits, tone is normal in all 4 extremities. EXTREMITIES: Right BKA, left leg weakness and left foot drop, remaining distal pulses are weak and only found with Doppler. Extremities are cool with distal cyanosis Results - Laboratory Findings CBC and BMP: 12/30/23 07:23 12/30/23 07:23 PT/INR, D-dimer PT 11.2 sec (10.0-12.5) 12/30/23 00:08 INR 1.0 (<1.2) 12/30/23 00:08 Abnormal lab findings: Abnormal Labs 12/26/23 12/26/23 12/27/23 13:28 13:28 04:22 RBC Hgb Hct MCHC 29.9 L RDW 16.1 H Sodium 135 L Potassium Chloride Carbon Dioxide 31 H BUN 21 H 23 H Creatinine 0.41 L 0.57 L Glucose 123 H POC Glucose (mg/dL) Phosphorus 2.4 L Magnesium ALT Alkaline Phosphatase 133 H Total Protein 9.0 H Triglycerides Urine Protein Crossmatch 12/28/23 12/28/23 12/29/23 08:04 08:04 06:25 RBC Hgb Hct MCHC 30.0 L RDW 16.3 H Sodium 128 L Potassium 5.5 H Chloride 94 L Carbon Dioxide BUN 64 H Creatinine Glucose 195 H POC Glucose (mg/dL) 226 H Phosphorus 6.0 H Magnesium ALT 59 H Alkaline Phosphatase Total Protein 9.2 H Triglycerides Urine Protein Crossmatch 12/29/23 12/29/23 12/29/23 06:32 06:33 11:19 RBC Hgb Hct MCHC RDW 16.6 H 16.4 H Sodium 124 L Potassium 5.5 H Chloride 94 L Carbon Dioxide 21 L BUN 104 H* Creatinine 1.59 H Glucose 203 H POC Glucose (mg/dL) Phosphorus Magnesium 2.4 H ALT Alkaline Phosphatase Total Protein Triglycerides 219.00 H Urine Protein Crossmatch 12/29/23 12/29/23 12/29/23 11:20 16:28 16:52 RBC Hgb 12.2 L Hct MCHC 29.3 L RDW 16.3 H Sodium Potassium Chloride Carbon Dioxide BUN Creatinine Glucose POC Glucose (mg/dL) 190 H Phosphorus Magnesium ALT Alkaline Phosphatase Total Protein Triglycerides Urine Protein Trace H Crossmatch 12/29/23 12/29/23 12/29/23 16:52 19:17 19:41 RBC Hgb Hct MCHC RDW Sodium 126 L Potassium 6.1 H* Chloride Carbon Dioxide 17 L BUN 102 H* Creatinine Glucose 203 H POC Glucose (mg/dL) 221 H 277 H Phosphorus Magnesium ALT Alkaline Phosphatase Total Protein Triglycerides Urine Protein Crossmatch 12/29/23 12/29/23 12/30/23 20:05 20:05 00:08 RBC 4.08 L Hgb 11.4 L Hct 35.6 L MCHC RDW 16.7 H Sodium Potassium 5.8 H Chloride Carbon Dioxide BUN Creatinine Glucose POC Glucose (mg/dL) Phosphorus Magnesium ALT Alkaline Phosphatase Total Protein Triglycerides Urine Protein Crossmatch See Detail 12/30/23 00:08 RBC 3.56 L Hgb 9.8 L D Hct 31.6 L MCHC RDW 16.5 H Sodium Potassium Chloride Carbon Dioxide BUN Creatinine Glucose POC Glucose (mg/dL) Phosphorus Magnesium ALT Alkaline Phosphatase Total Protein Triglycerides Urine Protein Crossmatch Assessment and Plan Assessment: Suspected acute GI bleeding vs bleeding from the abdominal wall, Abdominal and pelvis CT showing several areas of active extravasation noted on early arterial phase imaging within the superficial post operative ventral abdominal wall. Indeterminate whether this area of bleeding lies within a conglomeration of superficial bowel loop or is within the postoperative abdominal wall. No evidence of bowel obstruction. Also, dense bibasilar consolidations noted in the lower lobes. Acute blood loss anemia, secondary to above, 2 units PRBCs pending Hypotension and hypovolemic shock, has been aggressively fluid resuscitated with now a total of 3.5 L normal saline fluid, will be started on low-dose vasopressors until blood products become available Severe hyperkalemia, receiving Lokelma, most recent potassium down to 5.8 Hypovolemic hyponatremia Prerenal azotemia Recent history of ventilator dependent respiratory failure, secondary to pneumonia, microbiology from BAL positive for haemophilus influenzae History of DVT, previously on therapeutic dose of Lovenox, which is currently stopped History of Crohn's disease complicated by bowel perforation status post gayatri ctomy and diverting ileostomy. 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 Currently receiving TPN for nutritional support. 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 cardiac asystole/arrest in 2021 History of tracheostomy and reversal Plan: Patient's medications, labs, imaging reviewed Patient has active bleeding, currently being evaluated by general surgery at the moment. Awaiting further surgical recommendations. Dr. Munoz previously made aware of this patient. In the meantime, patient is transferred to the intensive care unit for ongoing bleeding and hypotension Despite aggressive fluid resuscitation, patient remains hypotensive, and is going to be started on norepinephrine infusion while we wait for blood products Lovenox has been discontinued Protonix twice daily Continue to monitor H&H Obtain chest x-ray Patient's condition is currently critical, and will be monitored in the intensive care unit. Further recommendations to follow. I have personally seen and examined the patient, performed the documentation and the assessment and plan as written. Number of minutes spent on the visit:20 This is a joint evaluation. Along with the nurse practitioner. This evaluation with this. The patient is seen in the intensive care unit. The patient is currently being monitored for bleeding and the patient has already received a total of 2 units of packed RBC. General surgery is on the case and the bleeding is either from an enterocutaneous fistula versus the abdominal wall and abdomen. Cauterization was done. The patient is currently on normal saline at 75 cc an hour. The patient remains on low-dose pressors and norepinephrine is running at 0.09 mcg/kg/min. The patient on TPN for nutritional support 820 cc an hour and the patient is also on 3 L of oxygen by nasal cannula. Awake and alert and communicating. No significant respiratory distress for now. Will continue to monitor and follow-up this patient will do the rest of the consultants. Time with Patient: Greater than 30
[2023-12-30] MEDS ORDERED: DEXTROSE 50% SYRINGE 50 ML IVP PRN ×2 (02:45)
[2023-12-30] MEDS: HYDROmorphone 0.5 MG/0.5 ML SYRINGE IVP PRN (03:04)
--- NOTE | 2023-12-30 03:05 | XR ---
EXAM: XR Chest, 1 View CLINICAL HISTORY: dyspnea TECHNIQUE: Frontal view of the chest. COMPARISON: Portable chest single view 12/14/2023 FINDINGS: Lungs: Poor inspiratory effort. There is interval resolution of the complete opacification of the right hemithorax. No definite focal airspace consolidation with similar linear presumed infrahilar atelectasis or scarring. Pleural space: Unremarkable. No pneumothorax. No large pleural effusion. Heart: Unremarkable. No cardiomegaly. Mediastinum: No significant abnormality identified. The trachea is midline. Bones/joints: Similar postsurgical clips noted in the right supra clavicular region. No acute fracture. Tubes, lines and devices: A left internal jugular approach small caliber dual lumen central venous catheter is noted with the tip in the superior vena cava. IMPRESSION: Poor inspiratory effort. There is interval resolution of the complete opacification of the right hemithorax. No definite focal airspace consolidation with similar linear presumed infrahilar atelectasis or scarring. No pleural effusion or pneumothorax.
[2023-12-30 06:52] LABS: Glucose,Whole Blood 176 mg/dL (70-110)
--- NOTE | 2023-12-30 07:24 | P.GSCN ---
History of Present Illness Consult date: 12/29/23 History of present illness: Patient and evaluated. Family and patient requesting to be seen by different provider. Active dark blood seen in the ostomy attached to drainage system. Recommend EGD and possibly endoscopy through stoma. Will sign off per family/patient request. Past Medical History Past Medical History: CVA/TIA, Deep Vein Thrombosis (DVT) Additional Past Medical History / Comment(s): Progressing left upper thigh pain and swelling and left leg weakness. 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 Crohns. Ostomy Bag placed in 09/2021. History of Any Multi-Drug Resistant Organisms: MRSA Year Discovered:: 12/14/23 MDRO Source:: MRSA- nasal Past Surgical History: Cholecystectomy, Orthopedic Surgery Additional Past Surgical History / Comment(s): Arm surgery, right leg below knee amputation, ostomy (2021) Past Anesthesia/Blood Transfusion Reactions: No Reported Reaction Past Psychological History: No Psychological Hx Reported Smoking Status: Former smoker Past Alcohol Use History: None Reported Additional Past Alcohol Use History / Comment(s): QUIT SMOKING IN 2017, STARTED SMOKING AT AGE 16, 1PPD. Past Drug Use History: None Reported - Past Family History Father Additional Family Medical History / Comment(s): DAD IN HIS TWENTIES - CAUSE UNKNOWN. Mother Family Medical History: Diabetes Mellitus Brother(s) Family Medical History: Cancer Additional Family Medical History / Comment(s): Kidney cancer as a baby. Medications and Allergies Home Medications Medication Instructions Recorded Confirmed Type Enoxaparin [Lovenox] 80 mg SQ BID@0900,2100 07/07/22 12/26/23 History Pantoprazole [Protonix] 40 mg PO DAILY@0900 07/07/22 12/26/23 History Albuterol Sulfate [Albuterol 1 - 2 puff PO RT-Q4H PRN 09/10/22 12/26/23 History Sulfate Hfa] Loperamide HCl [Loperamide] 4 mg PO QID@08,12,16,20 11/10/22 12/26/23 History Ferrous Sulfate [Iron (65 MG 325 mg PO DAILY@0900 12/12/23 12/26/23 History Elemental)] Heparin Sodium,Porcine/Pf [Heparin 1 dose IV DAILY PRN 12/12/23 12/26/23 History 500 Unit/5 ml (100/ml) Flush] Metoprolol Tartrate [Lopressor] 12.5 mg PO BID@0900,2100 12/12/23 12/26/23 History Omeprazole [PriLOSEC] 40 mg PO DAILY #30 cap 12/12/23 12/26/23 Rx Sodium Chloride 0.9% [Saline 0.9%] 10 ml IV DAILY PRN 12/12/23 12/26/23 History Vitamin A 2,400 mcg PO DAILY@0900 12/12/23 12/26/23 History traZODone HCL [Desyrel] 50 mg PO HS PRN 12/12/23 12/26/23 History Cholecalciferol (Vitamin D3) 1,250 mcg PO MOTH 12/13/23 12/26/23 History [Vitamin D3 (1250 Mcg = 50,000 Iu)] Furosemide [Lasix] 40 mg PO BID@0900,1600 #30 tab 12/25/23 12/26/23 Rx Potassium Chloride ER [K-Dur 20] 20 meq PO DAILY #30 tab 12/25/23 12/26/23 Rx amLODIPine [Norvasc] 5 mg PO DAILY #30 tab 12/25/23 12/26/23 Rx HYDROcodone/APAP 5-325MG [[place] 1 tab PO Q6HR PRN 12/26/23 12/26/23 History 5-325] Allergies Allergy/AdvReac Type Severity Reaction Status Date / Time No Known Allergies Allergy Verified 12/26/23 12:48 Surgical - Exam Vital Signs Temp Pulse Resp BP Pulse Ox 98.4 F 92 16 120/63 95 12/26/23 12:18 12/26/23 12:18 12/26/23 12:18 12/26/23 12:18 12/26/23 12:18 Results - Labs 12/30/23 00:08 12/29/23 20:05 Abnormal Lab Results - Last 24 Hours (Table) 12/29/23 12/29/23 12/29/23 Range/Units 06:25 06:32 06:33 RDW 16.6 H (11.5-15.5) % Sodium 124 L (137-145) mmol/L Potassium 5.5 H (3.5-5.1) mmol/L Chloride 94 L (98-107) mmol/L Carbon Dioxide 21 L (22-30) mmol/L BUN 104 H* (9-20) mg/dL Creatinine 1.59 H (0.66-1.25) mg/dL Glucose 203 H (74-99) mg/dL POC Glucose (mg/dL) 226 H (70-110) mg/dL Magnesium 2.4 H (1.6-2.3) mg/dL Triglycerides 219.00 H (0.00-149.00) mg/dL Urine Protein (Negative) 12/29/23 12/29/23 Range/Units 11:19 11:20 RDW 16.4 H (11.5-15.5) % Sodium (137-145) mmol/L Potassium (3.5-5.1) mmol/L Chloride (98-107) mmol/L Carbon Dioxide (22-30) mmol/L BUN (9-20) mg/dL Creatinine (0.66-1.25) mg/dL Glucose (74-99) mg/dL POC Glucose (mg/dL) (70-110) mg/dL Magnesium (1.6-2.3) mg/dL Triglycerides (0.00-149.00) mg/dL Urine Protein Trace H (Negative) Diabetes panel 12/29/23 Range/Units 06:32 Sodium 124 L (137-145) mmol/L Potassium 5.5 H (3.5-5.1) mmol/L Chloride 94 L (98-107) mmol/L Carbon Dioxide 21 L (22-30) mmol/L BUN 104 H* (9-20) mg/dL Creatinine 1.59 H (0.66-1.25) mg/dL Glucose 203 H (74-99) mg/dL Calcium 9.4 (8.4-10.2) mg/dL Triglycerides 219.00 H (0.00-149.00) mg/dL Calcium panel 12/29/23 Range/Units 06:32 Calcium 9.4 (8.4-10.2) mg/dL Phosphorus 4.4 (2.5-4.5) mg/dL Pituitary panel 12/29/23 Range/Units 06:32 Sodium 124 L (137-145) mmol/L Potassium 5.5 H (3.5-5.1) mmol/L Chloride 94 L (98-107) mmol/L Carbon Dioxide 21 L (22-30) mmol/L BUN 104 H* (9-20) mg/dL Creatinine 1.59 H (0.66-1.25) mg/dL Glucose 203 H (74-99) mg/dL Calcium 9.4 (8.4-10.2) mg/dL Adrenal panel 12/29/23 Range/Units 06:32 Sodium 124 L (137-145) mmol/L Potassium 5.5 H (3.5-5.1) mmol/L Chloride 94 L (98-107) mmol/L Carbon Dioxide 21 L (22-30) mmol/L BUN 104 H* (9-20) mg/dL Creatinine 1.59 H (0.66-1.25) mg/dL Glucose 203 H (74-99) mg/dL Calcium 9.4 (8.4-10.2) mg/dL
[2023-12-30 07:36] LABS: Basophils % (A) 0 %; Eosinophils # (A) 0.1 k/uL (0-0.7); Eosinophils % (A) 1 %; HCT 35.5 % (39.0-53.0); HGB 10.9 gm/dL (13.0-17.5); Hypochromasia Marked; Lymphocytes # (A) 2.2 k/uL (1.0-4.8); Lymphocytes % (A) 17 %; MCH 27.8 pg (25.0-35.0); MCHC 30.8 g/dL (31.0-37.0); MCV 90.4 fL (80.0-100.0); Mean Platelet Volume 8.5; Monocytes # (A) 0.5 k/uL (0-1.0); Monocytes % (A) 4 %; Neutrophils # (A) 9.6 k/uL (1.3-7.7); Neutrophils % (A) 75 %; Platelet Count 390 k/uL (150-450); RBC 3.93 m/uL (4.30-5.90); RDW 15.8 % (11.5-15.5); WBC 12.8 k/uL (3.8-10.6)
[2023-12-30 07:47] LABS: African American GFR (CKD) >90 (>60 ml/min/1.73 sqM); Anion Gap 5 mmol/L; Calcium 8.4 mg/dL (8.4-10.2); Carbon Dioxide 17 mmol/L (22-30); Chloride 106 mmol/L (98-107); Glucose 201 mg/dL (74-99); Non-African American GFR(CKD) 78 (>60 ml/min/1.73 sqM); Phosphorus 3.3 mg/dL (2.5-4.5); Potassium 4.9 mmol/L (3.5-5.1); Sodium 128 mmol/L (137-145)
[2023-12-30 07:49] LABS: Blood Urea Nitrogen 102 mg/dL (9-20)
[2023-12-30] MEDS: INSULIN ASPART (NovoLOG) 100 UNIT/ML VIAL SQ SCH ×2 (08:09→12:05)
[2023-12-30] MEDS: CHOLECALCIFEROL 125 MCG (5000 IU) TABLET PO SCH (11:05)
[2023-12-30 11:53] LABS: Glucose,Whole Blood 213 mg/dL (70-110)
--- NOTE | 2023-12-30 13:22 | P.PN ---
Subjective patient is seen for follow-up for acute kidney injury and hyponatremia. Maintained on normal saline along with TPN. Serum sodium has increased to 128. Serum creatinine at 1.1. Objective - Vital Signs Vital signs: Vital Signs Temp 97.7 F 12/30/23 12:30 Pulse 95 12/30/23 13:00 Resp 15 12/30/23 13:00 BP 122/41 12/30/23 13:00 Pulse Ox 98 12/30/23 13:00 FiO2 Intake & Output 12/29/23 12/30/23 12/30/23 18:59 06:59 18:59 Intake Total 2769.985 713.371 Output Total 1400 2145 580 Balance -1400 624.985 133.371 Weight 98.4 kg 98.4 kg Intake: IV 750 525 Sodium Chloride 0.9% 1, 750 525 000 ml @ 75 mls/hr IV . [id number] [facility] Rx#:[id number] Intake, IV Titration 1099.985 188.371 Amount Norepinephrine 4 mg In 99.985 188.371 Sodium Chloride 0.9% 250 ml @ 0.03 MCG/KG/MIN 10. 888 mls/hr IV .[id number] [facility] Rx#:[id number] Sodium Chloride 0.9% 1, 1000 000 ml @ 999 mls/hr IV . Q1H1M [facility] Rx#:[id number] Blood Product 920 Rc As-1 Unit 310 [id number] Rc As-1 Unit 310 [id number] Output: Drainage 1700 120 Right Abdomen 1700 120 Urine 600 445 460 Stool 800 Other: Voiding Method Indwelling Catheter Indwelling Catheter - Exam patient is awake, comfortable, no acute distress. Examination of the heart S1 and S2 Examination of the lungs bilateral breath sounds are heard Abdomen is soft obese nontender, ileostomy right BKA noted Atrophy of lower extremities noted. - Labs CBC & Chem 7: 12/30/23 07:23 12/30/23 07:23 Labs: Abnormal Lab Results - Last 24 Hours (Table) 12/29/23 12/29/23 12/29/23 Range/Units 16:28 16:52 16:52 WBC (3.8-10.6) k/uL RBC (4.30-5.90) m/uL Hgb 12.2 L (13.0-17.5) gm/dL Hct (39.0-53.0) % MCHC 29.3 L (31.0-37.0) g/dL RDW 16.3 H (11.5-15.5) % Neutrophils # (1.3-7.7) k/uL Sodium 126 L (137-145) mmol/L Potassium 6.1 H* (3.5-5.1) mmol/L Carbon Dioxide 17 L (22-30) mmol/L BUN 102 H* (9-20) mg/dL Glucose 203 H (74-99) mg/dL POC Glucose (mg/dL) 190 H (70-110) mg/dL Crossmatch 12/29/23 12/29/23 12/29/23 Range/Units 19:17 19:41 20:05 WBC (3.8-10.6) k/uL RBC (4.30-5.90) m/uL Hgb (13.0-17.5) gm/dL Hct (39.0-53.0) % MCHC (31.0-37.0) g/dL RDW (11.5-15.5) % Neutrophils # (1.3-7.7) k/uL Sodium (137-145) mmol/L Potassium 5.8 H (3.5-5.1) mmol/L Carbon Dioxide (22-30) mmol/L BUN (9-20) mg/dL Glucose (74-99) mg/dL POC Glucose (mg/dL) 221 H 277 H (70-110) mg/dL Crossmatch 12/29/23 12/30/23 12/30/23 Range/Units 20:05 00:08 00:08 WBC (3.8-10.6) k/uL RBC 4.08 L 3.56 L (4.30-5.90) m/uL Hgb 11.4 L 9.8 L D (13.0-17.5) gm/dL Hct 35.6 L 31.6 L (39.0-53.0) % MCHC (31.0-37.0) g/dL RDW 16.7 H 16.5 H (11.5-15.5) % Neutrophils # (1.3-7.7) k/uL Sodium (137-145) mmol/L Potassium (3.5-5.1) mmol/L Carbon Dioxide (22-30) mmol/L BUN (9-20) mg/dL Glucose (74-99) mg/dL POC Glucose (mg/dL) (70-110) mg/dL Crossmatch See Detail 12/30/23 12/30/23 12/30/23 Range/Units 06:51 07:23 07:23 WBC 12.8 H (3.8-10.6) k/uL RBC 3.93 L (4.30-5.90) m/uL Hgb 10.9 L (13.0-17.5) gm/dL Hct 35.5 L (39.0-53.0) % MCHC 30.8 L (31.0-37.0) g/dL RDW 15.8 H (11.5-15.5) % Neutrophils # 9.6 H (1.3-7.7) k/uL Sodium 128 L (137-145) mmol/L Potassium (3.5-5.1) mmol/L Carbon Dioxide 17 L (22-30) mmol/L BUN 102 H* (9-20) mg/dL Glucose 201 H (74-99) mg/dL POC Glucose (mg/dL) 176 H (70-110) mg/dL Crossmatch 12/30/23 Range/Units 11:51 WBC (3.8-10.6) k/uL RBC (4.30-5.90) m/uL Hgb (13.0-17.5) gm/dL Hct (39.0-53.0) % MCHC (31.0-37.0) g/dL RDW (11.5-15.5) % Neutrophils # (1.3-7.7) k/uL Sodium (137-145) mmol/L Potassium (3.5-5.1) mmol/L Carbon Dioxide (22-30) mmol/L BUN (9-20) mg/dL Glucose (74-99) mg/dL POC Glucose (mg/dL) 213 H (70-110) mg/dL Crossmatch Assessment and Plan Assessment: 1. Acute kidney injury, nonoliguric, related to hypotension. UA is benign. Maintained on IV fluids. 2. Hypovolemic hyponatremia, improved with saline. 3. Metabolic acidosis secondary to acute kidney injury 4. History of Crohn's disease and bowel perforations currently on TPN. History of ileostomy 5. Hyperkalemia associated with acute kidney injury and GI bleed Plan: continue with saline Increase sodium acetate in TPN to help with metabolic acidosis. Repeat labs in a.m.
--- NOTE | 2023-12-30 15:03 | P.PN ---
Subjective Progress Note Date: 12/30/23 CHIEF COMPLAINT: Debility and issues with TPN supplies HISTORY OF PRESENT ILLNESS: Patient is currently in the ICU due to bleeding from his ileostomy site. Last night patient evaluated by Dr. Montiel with evidence of active bleeding at the left of the ileostomy. He placed sutures and cauterized a bleeding vessel. Patient received total of 2 units of packed red blood cells. Patient continues to have dark blood with stool through his ileostomy. He had 100 out last night and a heart in 20 this morning. Hemoglobin did go up from 9.8 10.9 after 2 units of blood. He reports some mild epigastric pain. Hemoglobin did go up from 9.8-10.9 he received 2 units of blood yesterday. Patient is on iron. Per nursing staff 100 mL of dark blood during the night and 120 mL this morning after surgeon suture and raised bleeding vessel. PHYSICAL EXAM: VITAL SIGNS: Reviewed. GENERAL: Well-developed in no acute distress. ABDOMEN: Soft. Nondistended. Tender epigastric area. Ileostomy with dark blood in stools. NEUROLOGIC: Alert and oriented. Cranial nerves II through XII grossly intact. ASSESSMENT: 1. Acute GI bleed at the ileostomy site 2. History of Crohn's with bowel perforation requiring ileostomy. 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 -Continue IV fluids -Continue IV Protonix -Continue to check CBC every 6 hours -Continue TPN for nutrition support Physician Crystal Grower note has been reviewed by physician. Signing provider agrees with the documented findings, assessment, and plan of care. Attestation Patient seen and examined at bedside. Acute GI bleeding at ileostomy site was treated at bedside overnight. This was done with sutures and cauterization. Patient also received total of 2 units of packed red blood cells. Over last 10- hour shift from 7 AM to 4 PM, patient has had 120 cc from ileostomy that appears to be lightening in color and more brown according to patient and patient's family at bedside. Continue to check CBC. Repeat CBC this afternoon is hemoglobin of 9.2. Will continue to follow. Further recommendations based on patient's clinical progress. Milton Marrufo DO Objective - Vital Signs Vital signs: Vital Signs Temp 97.8 F 12/30/23 08:00 Pulse 90 12/30/23 11:00 Resp 19 12/30/23 11:00 BP 87/33 12/30/23 11:00 Pulse Ox 98 12/30/23 11:00 FiO2 Intake & Output 12/29/23 12/30/23 12/30/23 18:59 06:59 18:59 Intake Total 2769.985 638.371 Output Total 1400 2145 480 Balance -1400 624.985 158.371 Weight 98.4 kg 98.4 kg Intake: IV 750 450 Sodium Chloride 0.9% 1, 750 450 000 ml @ 75 mls/hr IV . [id number] [facility] Rx#:[id number] Intake, IV Titration 1099.985 188.371 Amount Norepinephrine 4 mg In 99.985 188.371 Sodium Chloride 0.9% 250 ml @ 0.03 MCG/KG/MIN 10. 888 mls/hr IV .[id number] [facility] Rx#:[id number] Sodium Chloride 0.9% 1, 1000 000 ml @ 999 mls/hr IV . Q1H1M [facility] Rx#:[id number] Blood Product 920 Rc As-1 Unit 310 [id number] Rc As-1 Unit 310 [id number] Output: Drainage 1700 120 Right Abdomen 1700 120 Urine 600 445 360 Stool 800 Other: Voiding Method Indwelling Catheter Indwelling Catheter - Labs CBC & Chem 7: 12/30/23 14:40 12/30/23 07:23 Labs: Abnormal Lab Results - Last 24 Hours (Table) 12/29/23 12/29/23 12/29/23 Range/Units 16:28 16:52 16:52 WBC (3.8-10.6) k/uL RBC (4.30-5.90) m/uL Hgb 12.2 L (13.0-17.5) gm/dL Hct (39.0-53.0) % MCHC 29.3 L (31.0-37.0) g/dL RDW 16.3 H (11.5-15.5) % Neutrophils # (1.3-7.7) k/uL Sodium 126 L (137-145) mmol/L Potassium 6.1 H* (3.5-5.1) mmol/L Carbon Dioxide 17 L (22-30) mmol/L BUN 102 H* (9-20) mg/dL Glucose 203 H (74-99) mg/dL POC Glucose (mg/dL) 190 H (70-110) mg/dL Crossmatch 12/29/23 12/29/23 12/29/23 Range/Units 19:17 19:41 20:05 WBC (3.8-10.6) k/uL RBC (4.30-5.90) m/uL Hgb (13.0-17.5) gm/dL Hct (39.0-53.0) % MCHC (31.0-37.0) g/dL RDW (11.5-15.5) % Neutrophils # (1.3-7.7) k/uL Sodium (137-145) mmol/L Potassium 5.8 H (3.5-5.1) mmol/L Carbon Dioxide (22-30) mmol/L BUN (9-20) mg/dL Glucose (74-99) mg/dL POC Glucose (mg/dL) 221 H 277 H (70-110) mg/dL Crossmatch 12/29/23 12/30/23 12/30/23 Range/Units 20:05 00:08 00:08 WBC (3.8-10.6) k/uL RBC 4.08 L 3.56 L (4.30-5.90) m/uL Hgb 11.4 L 9.8 L D (13.0-17.5) gm/dL Hct 35.6 L 31.6 L (39.0-53.0) % MCHC (31.0-37.0) g/dL RDW 16.7 H 16.5 H (11.5-15.5) % Neutrophils # (1.3-7.7) k/uL Sodium (137-145) mmol/L Potassium (3.5-5.1) mmol/L Carbon Dioxide (22-30) mmol/L BUN (9-20) mg/dL Glucose (74-99) mg/dL POC Glucose (mg/dL) (70-110) mg/dL Crossmatch See Detail 12/30/23 12/30/23 12/30/23 Range/Units 06:51 07:23 07:23 WBC 12.8 H (3.8-10.6) k/uL RBC 3.93 L (4.30-5.90) m/uL Hgb 10.9 L (13.0-17.5) gm/dL Hct 35.5 L (39.0-53.0) % MCHC 30.8 L (31.0-37.0) g/dL RDW 15.8 H (11.5-15.5) % Neutrophils # 9.6 H (1.3-7.7) k/uL Sodium 128 L (137-145) mmol/L Potassium (3.5-5.1) mmol/L Carbon Dioxide 17 L (22-30) mmol/L BUN 102 H* (9-20) mg/dL Glucose 201 H (74-99) mg/dL POC Glucose (mg/dL) 176 H (70-110) mg/dL Crossmatch 12/30/23 Range/Units 11:51 WBC (3.8-10.6) k/uL RBC (4.30-5.90) m/uL Hgb (13.0-17.5) gm/dL Hct (39.0-53.0) % MCHC (31.0-37.0) g/dL RDW (11.5-15.5) % Neutrophils # (1.3-7.7) k/uL Sodium (137-145) mmol/L Potassium (3.5-5.1) mmol/L Carbon Dioxide (22-30) mmol/L BUN (9-20) mg/dL Glucose (74-99) mg/dL POC Glucose (mg/dL) 213 H (70-110) mg/dL Crossmatch
[2023-12-30 15:43] LABS: Anisocytosis Slight; Basophils # (A) 0.1 k/uL (0-0.2); Basophils % (A) 1 %; Eosinophils # (A) 0.1 k/uL (0-0.7); Eosinophils % (A) 1 %; Hypochromasia Marked; Lymphocytes # (A) 1.9 k/uL (1.0-4.8); Lymphocytes % (A) 15 %; MCH 28.5 pg (25.0-35.0); MCHC 29.6 g/dL (31.0-37.0); Mean Platelet Volume 9.9; Monocytes # (A) 0.8 k/uL (0-1.0); Monocytes % (A) 7 %; Neutrophils # (A) 9.3 k/uL (1.3-7.7); Neutrophils % (A) 74 %; Platelet Count 251 k/uL (150-450); Poikilocytosis Slight; RBC 3.22 m/uL (4.30-5.90); RDW 16.1 % (11.5-15.5); WBC 12.6 k/uL (3.8-10.6)
[2023-12-30 15:46] LABS: HGB 9.2 gm/dL (13.0-17.5); MCV 96.3 fL (80.0-100.0)
[2023-12-30] MEDS: HYDROmorphone 1 MG/ML 1 ML SYRINGE IVP PRN (17:05)
[2023-12-30 19:12] LABS: Glucose,Whole Blood 203 mg/dL (70-110)
[2023-12-30 20:52] LABS: Glucose,Whole Blood 187 mg/dL (70-110)
[2023-12-30] MEDS: INSULIN DETEMIR (LEVEMIR) 100 UNIT/ML SYR SQ SCH (20:59)
[2023-12-30 21:16] LABS: Anisocytosis Slight; Basophils % (A) 0 %; Eosinophils # (A) 0.1 k/uL (0-0.7); Eosinophils % (A) 1 %; HCT 31.8 % (39.0-53.0); HGB 10.1 gm/dL (13.0-17.5); Hypochromasia Marked; Lymphocytes # (A) 1.3 k/uL (1.0-4.8); Lymphocytes % (A) 13 %; MCH 28.8 pg (25.0-35.0); MCHC 31.9 g/dL (31.0-37.0); Mean Platelet Volume 9.3; Monocytes # (A) 0.4 k/uL (0-1.0); Monocytes % (A) 4 %; Neutrophils # (A) 7.8 k/uL (1.3-7.7); Neutrophils % (A) 80 %; Platelet Count 336 k/uL (150-450); Poikilocytosis Slight; RBC 3.53 m/uL (4.30-5.90); RDW 16.4 % (11.5-15.5); WBC 9.7 k/uL (3.8-10.6)
[2023-12-30 21:17] LABS: MCV 90.2 fL (80.0-100.0)
[2023-12-30] MEDS: 1: MVI, ADULT NO.4 WITH VIT K 10 ML, TRACE (CONC-1ML/DOSE) 1 ML, SODIUM CHLORIDE 4MEQ/ML IV SCH (22:10)
[2023-12-30 23:27] LABS: Glucose,Whole Blood 208 mg/dL (70-110)
--- NOTE | 2023-12-31 01:31 | P.PN ---
Subjective Progress Note Date: 12/30/23 This is a pleasant 48 years old male with past medical history of Crohn disease complicated with bowel perforation requiring ileostomy, also has 2 fistula in his anterior abdominal Wall, patient also has left upper chest portal to receive TPN who was only discharged yesterday after being admitted to the hospital for pneumonia and respiratory failure was discharged yesterday in stable condition. Patient came back to the ER today because of debility and having issues with his TPN supplies. There has been some issues with primary care appointments and orders with TPN requiring signature from his PCP. At this time patient denies any chest pain or shortness of breath. There was no complaint of fever or chills. Denies any nausea, vomiting, abdominal pain. Denies any lightheaded dizziness. Initial lab work done in the ER showed W6.3, hemoglobin 20.7, platelet count 264, sodium 130, potassium 4.9, BUN 20, creatinine 0.41, phosphorus 2.4, alk phos 133, total protein 9 Patient admitted to internal medicine service 12/26. Patient seen and examined. Complaining of pain in his right hand. D enies any shortness of breath /12. Patient seen and examined. Potassium level this morning was 5.5, patient was getting potassium supplementation, will DC it for now. 12/28. Patient seen and examined. Patient had a rapid response called overnight for low blood pressure, patient was given 2-1/2 L of fluid. Labs on this morning showed WBC 10.4, hemoglobin 14.4, platelet count 420, sodium 124, p otassium 5.5, BUN 104, creatinine 1.59. Ostomy output is blood-tinged. 12/30/2023 Patient continues in the ICU requiring low-dose pressor support and currently being weaned. Multiple consultations following including general surgery and did a washout of the abdomen early this morning along with cauterizing and placing sutures to an area near the ostomy that had been bleeding. Hemoglobin is stable and is being closely monitored with hemoglobins every 6 hours. Transfuse if 7 or less. Patient to continue with strict n.p.o. and is maintained on TPN. Blood sugars have been more elevated and will add long- acting and adjust insulins accordingly REVIEW OF SYSTEMS: CONSTITUTIONAL: No fever, no malaise,. Complaining of lethargy CARDIOVASCULAR: No chest pain, no palpitations, no syncope. PULMONARY: No shortness of breath, no cough, GASTROINTESTINAL: No diarrhea, no nausea, no vomiting, no abdominal pain. NEUROLOGICAL: No headaches, no weakness, Active Medications Hydrocodone Bitart/Acetaminophen (Hydrocodone/Apap 10-325mg 1 Each Tab) 1 each PO Q6HR PRN PRN Reason: Pain Last Admin: 12/28/23 21:19 Dose: 1 each Albuterol Sulfate (Albuterol Nebulized 2.5 Mg/3 Ml) 2.5 mg INHALATION RT-Q4H PRN PRN Reason: Shortness Of Breath Cholecalciferol (Cholecalciferol 125 Mcg (5000 Iu) Tablet) 1,250 mcg PO MOTH [facility] Last Admin: 12/30/23 11:05 Dose: Not Given Dextrose/Water (Dextrose 50% Syringe 50 Ml) 25 ml IVP PER PROTOCOL PRN; Protocol PRN Reason: Hypoglycemia Dextrose/Water (Dextrose 50% Syringe 50 Ml) 50 ml IVP PER PROTOCOL PRN; Protocol PRN Reason: Hypoglycemia Ferrous Sulfate (Ferrous Sulfate 325 Mg Tab) 325 mg PO DAILY@0900 [facility] Last Admin: 12/30/23 11:06 Dose: Not Given Heparin Sodium (Porcine) (Heparin Lock 500 Unit/5 Ml 100 Unit/Ml Syringe) 500 unit IV DAILY PRN PRN Reason: picc line flush Hydromorphone HCl (Hydromorphone 0.5 Mg/0.5 Ml Syringe) 0.5 mg IVP Q3HR PRN PRN Reason: Pain Last Admin: 12/30/23 13:11 Dose: 0.5 mg Hydromorphone HCl (Hydromorphone 1 Mg/Ml 1 Ml Syringe) 1 mg IVP Q3H PRN PRN Reason: Pain Fat Emulsion Intravenous 250 (ml/ IV Solution) 250 mls @ 21 mls/hr IV MoWeFr@1800 [facility] Last Admin: 12/27/23 17:48 Dose: 21 mls/hr Parenteral Vitamin Supplement 10 ml/ Zinc/Copper/Manganese/Selenium 1 ml/ Sodium Chloride 40 meq/ Calcium Gluconate 1 gm/ Sodium Acetate 20 meq/Amino Acids/Dextrose 1,041 mls @ 120 mls/hr IV .BY DURATION [facility] Stop: 12/30/23 19:59 Last Admin: 12/30/23 05:46 Dose: 120 mls/hr Sodium Chloride 40 meq/Calcium Gluconate 1 gm/ Sodium Acetate 20 meq/ Amino Acids/Dextrose 1,030 mls @ 120 mls/hr IV .BY DURATION [facility] Stop: 12/30/23 19:59 Last Admin: 12/30/23 13:33 Dose: 120 mls/hr Sodium Chloride (Saline 0.9%) 1,000 mls @ 75 mls/hr IV .[id number] [facility] Last Admin: 12/30/23 01:25 Dose: 75 mls/hr Norepinephrine Bitartrate 4 mg (/ Sodium Chloride) 254 mls @ 10.888 mls/hr IV .[id number] [facility]; Protocol Last Titration: 12/30/23 14:29 Dose: 0.08 mcg/kg/min, 29.033 mls/hr Parenteral Vitamin Supplement 10 ml/ Zinc/Copper/Manganese/Selenium 1 ml/ Sodium Chloride 40 meq/ Calcium Gluconate 1 gm/ Sodium Acetate 40 meq/Amino Acids/Dextrose 1,051 mls @ 120 mls/hr IV .BY DURATION [facility] Sodium Chloride 40 meq/Calcium Gluconate 1 gm/ Sodium Acetate 40 meq/ Amino Acids/Dextrose 1,040 mls @ 120 mls/hr IV .BY DURATION [facility] Insulin Aspart (Insulin Aspart (Novolog) 100 Unit/Ml Vial) 0 unit SQ Q6H [facility]; Protocol Last Admin: 12/30/23 12:05 Dose: 4 unit Insulin Detemir (Insulin Detemir (Levemir) 100 Unit/Ml Syr) 10 unit SQ BID [facility] Loperamide HCl (Loperamide 2 Mg Cap) 4 mg PO QID@08,12,16,20 [facility] Last Admin: 12/30/23 12:01 Dose: Not Given Metoprolol Tartrate (Metoprolol Tartrate 12.5 Mg Tab) 12.5 mg PO BID@0900,2100 [facility] Last Admin: 12/30/23 11:06 Dose: Not Given Naloxone HCl (Naloxone 0.4 Mg/Ml 1 Ml Vial) 0.2 mg IV Q2M PRN PRN Reason: Opioid Reversal Ondansetron HCl (Ondansetron 4 Mg/2 Ml Vial) 4 mg IVP Q8HR PRN PRN Reason: Nausea And Vomiting Last Admin: 12/30/23 08:06 Dose: 4 mg Pantoprazole Sodium (Pantoprazole 40 Mg/10 Ml Vial) 40 mg IVP BID [facility] Last Admin: 12/30/23 08:14 Dose: 40 mg Sodium Chloride (Sodium Chloride 0.9% Flush 10 Ml Syringe) 10 ml IV DAILY PRN PRN Reason: picc line flush Sodium Chloride (Sodium Chloride 0.65% Nasal [place] 44 Ml Btl) 2 spray NASAL QID PRN PRN Reason: Dry Nasal Passages Last Admin: 12/28/23 18:05 Dose: 2 spray Sodium Zirconium Cyclosilicate (Sodium Zirconium Cyclosilicate 10 Gm Packet) 10 gm PO DAILY [facility] Stop: 01/01/24 09:01 Last Admin: 12/30/23 11:06 Dose: Not Given Trazodone HCl (Trazodone Hcl 50 Mg Tab) 50 mg PO HS PRN PRN Reason: sleep Last Admin: 12/26/23 23:21 Dose: 50 mg Vitamin A (Vitamin A 10,000 Unit (3000 Mcg) Capsule) 10,000 unit PO DAILY@0900 [facility] Last Admin: 12/30/23 11:06 Dose: Not Given PHYSICAL EXAMINATION: GENERAL: The patient is alert and oriented x3, ill looking HEENT: Pupils are round and equally reacting to light. EOMI. No scleral icterus. No conjunctival pallor. Normocephalic, atraumatic. No pharyngeal erythema. No thyromegaly. CARDIOVASCULAR: S1 and S2 present. No murmurs, rubs, or gallops. PULMONARY: Diminished breath sound the bases bilaterally ABDOMEN: Soft, nontender, nondistended,. Ostomy seen and less blood-tinged MUSCULOSKELETAL: No joint swelling or deformity. Right BKA EXTREMITIES: No cyanosis, clubbing, or pedal edema. NEUROLOGICAL: Gross neurological examination did not reveal any focal deficits. SKIN: No rashes. Pale Assessment: Hypotension with hypotensive shock requiring pressor support likely secondary to acute GI bleed and hypovolemia Acute GI bleed from the ostomy secondary to an abdominal wall extravasation near the ostomy requiring sutures and cauterization 12/30/2023 Acute blood loss anemia secondary to above acute kidney injury secondary to hypotension History of DVT Chronic hypoxic respiratory failure Moderate protein calorie malnutrition maintained on TPN Hyperkalemia, improved status post Lokelma Hyponatremia history of Crohn disease complicated with bowel perforation requiring ileostomy, also has 2 fistula in his anterior abdominal Wall, patient also has left upper chest portal to receive right 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 Patient continues on low-dose pressor support and being weaned General Surgery following status post abdominal washout of the ostomy area and sutures placed with cauterization as there was an area that was bleeding near the ostomy. TPN has been resumed and tolerating Monitor H&H every 6 and transfuse if 7 or less. Patient has required 2 units of PRBC since admission Blood sugars have been mildly elevated and recommend to monitor Accu-Cheks before meals and at bedtime and will continue sliding scale and add long-acting and adjust accordingly Patient being monitored closely on IV fluids and diuretics have been held. Will follow-up on repeat labs and monitor electrolytes closely Case management/social work following and patient will require outpatient TPN supplies and follow-up with primary care provider. Due to multiple complex medical issues, overall prognosis is guarded The impression and plan of care has been dictated by Alyssa Hernandez, Nurse Practitioner as directed. Dr. Gerry MD I have performed a history and examination and MDM of this patient, discussed the same with the dictator, and agree with the dictator's assessment and plan as written ,documented as a scribe. Based on total visit time, I have performed more than 50% of the visit. Kavin campbell pager idiot Objective - Vital Signs Vital signs: Vital Signs Temp 97.7 F 12/30/23 12:30 Pulse 89 12/30/23 15:00 Resp 20 12/30/23 15:00 BP 108/54 12/30/23 15:00 Pulse Ox 98 12/30/23 15:00 FiO2 Intake & Output 12/29/23 12/30/23 12/30/23 18:59 06:59 18:59 Intake Total 3799.985 979.869 Output Total 1400 2145 710 Balance -1400 1654.985 269.869 Weight 98.4 kg 98.4 kg Intake: IV 750 675 Sodium Chloride 0.9% 1, 750 675 000 ml @ 75 mls/hr IV . [id number] [facility] Rx#:[id number] Intake, IV Titration 2129.985 304.869 Amount Norepinephrine 4 mg In 99.985 304.869 Sodium Chloride 0.9% 250 ml @ 0.03 MCG/KG/MIN 10. 888 mls/hr IV .[id number] [facility] Rx#:[id number] Sodium Chloride 0.9% 1, 1000 000 ml @ 999 mls/hr IV . Q1H1M [facility] Rx#:[id number] Sodium Chloride 4Meq/ml 1030 Vial 40 meq Calcium Gluconate 1 gm Sodium Acetate 20 meq In Amino Acid 5%-D15w 1,000 ml @ 120 mls/hr IV .BY DURATION [facility] Rx#: [id number] Blood Product 920 Rc As-1 Unit 310 [id number] Rc As-1 Unit 310 [id number] Output: Drainage 1700 120 Right Abdomen 1700 120 Urine 600 445 590 Stool 800 Other: Voiding Method Indwelling Catheter Indwelling Catheter - Labs CBC & Chem 7: 12/30/23 20:33 12/30/23 07:23 Labs: Abnormal Lab Results - Last 24 Hours (Table) 12/29/23 12/29/23 12/29/23 Range/Units 16:28 16:52 16:52 WBC (3.8-10.6) k/uL RBC (4.30-5.90) m/uL Hgb 12.2 L (13.0-17.5) gm/dL Hct (39.0-53.0) % MCHC 29.3 L (31.0-37.0) g/dL RDW 16.3 H (11.5-15.5) % Neutrophils # (1.3-7.7) k/uL Sodium 126 L (137-145) mmol/L Potassium 6.1 H* (3.5-5.1) mmol/L Carbon Dioxide 17 L (22-30) mmol/L BUN 102 H* (9-20) mg/dL Glucose 203 H (74-99) mg/dL POC Glucose (mg/dL) 190 H (70-110) mg/dL Crossmatch 12/29/23 12/29/23 12/29/23 Range/Units 19:17 19:41 20:05 WBC (3.8-10.6) k/uL RBC (4.30-5.90) m/uL Hgb (13.0-17.5) gm/dL Hct (39.0-53.0) % MCHC (31.0-37.0) g/dL RDW (11.5-15.5) % Neutrophils # (1.3-7.7) k/uL Sodium (137-145) mmol/L Potassium 5.8 H (3.5-5.1) mmol/L Carbon Dioxide (22-30) mmol/L BUN (9-20) mg/dL Glucose (74-99) mg/dL POC Glucose (mg/dL) 221 H 277 H (70-110) mg/dL Crossmatch 12/29/23 12/30/23 12/30/23 Range/Units 20:05 00:08 00:08 WBC (3.8-10.6) k/uL RBC 4.08 L 3.56 L (4.30-5.90) m/uL Hgb 11.4 L 9.8 L D (13.0-17.5) gm/dL Hct 35.6 L 31.6 L (39.0-53.0) % MCHC (31.0-37.0) g/dL RDW 16.7 H 16.5 H (11.5-15.5) % Neutrophils # (1.3-7.7) k/uL Sodium (137-145) mmol/L Potassium (3.5-5.1) mmol/L Carbon Dioxide (22-30) mmol/L BUN (9-20) mg/dL Glucose (74-99) mg/dL POC Glucose (mg/dL) (70-110) mg/dL Crossmatch See Detail 12/30/23 12/30/23 12/30/23 Range/Units 06:51 07:23 07:23 WBC 12.8 H (3.8-10.6) k/uL RBC 3.93 L (4.30-5.90) m/uL Hgb 10.9 L (13.0-17.5) gm/dL Hct 35.5 L (39.0-53.0) % MCHC 30.8 L (31.0-37.0) g/dL RDW 15.8 H (11.5-15.5) % Neutrophils # 9.6 H (1.3-7.7) k/uL Sodium 128 L (137-145) mmol/L Potassium (3.5-5.1) mmol/L Carbon Dioxide 17 L (22-30) mmol/L BUN 102 H* (9-20) mg/dL Glucose 201 H (74-99) mg/dL POC Glucose (mg/dL) 176 H (70-110) mg/dL Crossmatch 12/30/23 Range/Units 11:51 WBC (3.8-10.6) k/uL RBC (4.30-5.90) m/uL Hgb (13.0-17.5) gm/dL Hct (39.0-53.0) % MCHC (31.0-37.0) g/dL RDW (11.5-15.5) % Neutrophils # (1.3-7.7) k/uL Sodium (137-145) mmol/L Potassium (3.5-5.1) mmol/L Carbon Dioxide (22-30) mmol/L BUN (9-20) mg/dL Glucose (74-99) mg/dL POC Glucose (mg/dL) 213 H (70-110) mg/dL Crossmatch
[2023-12-31 03:59] LABS: Anisocytosis Slight; Basophils % (A) 0 %; Eosinophils # (A) 0.2 k/uL (0-0.7); Eosinophils % (A) 1 %; HCT 34.9 % (39.0-53.0); HGB 10.5 gm/dL (13.0-17.5); Hypochromasia Marked; Lymphocytes # (A) 1.6 k/uL (1.0-4.8); Lymphocytes % (A) 10 %; MCH 27.9 pg (25.0-35.0); MCHC 30.1 g/dL (31.0-37.0); MCV 92.5 fL (80.0-100.0); Mean Platelet Volume 8.8; Monocytes # (A) 0.7 k/uL (0-1.0); Monocytes % (A) 4 %; Neutrophils # (A) 12.7 k/uL (1.3-7.7); Neutrophils % (A) 82 %; Platelet Count 320 k/uL (150-450); Poikilocytosis Slight; RBC 3.77 m/uL (4.30-5.90); RDW 16.1 % (11.5-15.5); WBC 15.5 k/uL (3.8-10.6)
[2023-12-31 05:05] LABS: Glucose,Whole Blood 196 mg/dL (70-110)
[2023-12-31 06:40] LABS: Basophils % (A) 0 %; Eosinophils # (A) 0.1 k/uL (0-0.7); Eosinophils % (A) 1 %; HCT 34.4 % (39.0-53.0); HGB 10.2 gm/dL (13.0-17.5); Hypochromasia Marked; Lymphocytes # (A) 1.1 k/uL (1.0-4.8); Lymphocytes % (A) 7 %; MCH 27.8 pg (25.0-35.0); MCHC 29.6 g/dL (31.0-37.0); MCV 94.2 fL (80.0-100.0); Mean Platelet Volume 8.2; Monocytes # (A) 0.6 k/uL (0-1.0); Monocytes % (A) 4 %; Neutrophils % (A) 86 %; Platelet Count 309 k/uL (150-450); Poikilocytosis Slight; RBC 3.66 m/uL (4.30-5.90); WBC 15.1 k/uL (3.8-10.6)
[2023-12-31 07:01] LABS: African American GFR (CKD) >90 (>60 ml/min/1.73 sqM); Anion Gap 5 mmol/L; Calcium 8.8 mg/dL (8.4-10.2); Carbon Dioxide 17 mmol/L (22-30); Chloride 110 mmol/L (98-107); Glucose 217 mg/dL (74-99); Magnesium 1.8 mg/dL (1.6-2.3); Non-African American GFR(CKD) 85 (>60 ml/min/1.73 sqM); Phosphorus 2.7 mg/dL (2.5-4.5); Potassium 4.3 mmol/L (3.5-5.1); Sodium 132 mmol/L (137-145)
[2023-12-31 07:04] LABS: Blood Urea Nitrogen 105 mg/dL (9-20)
--- NOTE | 2023-12-31 08:01 | XR ---
EXAMINATION TYPE: XR chest 1V portable DATE OF EXAM: 12/31/2023 5:46 AM CLINICAL INDICATION: Male, 48 years old with history of pneumonia follow up; [facility] COMPARISON: Chest radiographs from 12/30/2023 TECHNIQUE: XR chest 1V portable Frontal view of the chest. FINDINGS: Lungs/Pleura: There is no evidence of pleural effusion, focal consolidation, or pneumothorax. Pulmonary vascularity: Unremarkable. Heart/mediastinum: Cardiomediastinal silhouette is unremarkable. Musculoskeletal: No acute osseous pathology. Other findings: Right neck base surgical clips. Lines/Tubes: [id number] projecting over the left hemithorax with distal tip at the cavoatrial junction. IMPRESSION: No evidence for pneumonia, No acute cardiopulmonary disease/process. [facility], , 12/31/2023 7:59 AM
[2023-12-31] MEDS: ENOXAPARIN 40 MG/0.4 ML SYRINGE SQ SCH (10:49)
[2023-12-31] MEDS: ALBUTEROL NEBULIZED 2.5 MG/3 ML INHALATION PRN (11:17)
--- NOTE | 2023-12-31 12:45 | P.PN ---
Subjective Progress Note Date: 12/31/23 Patient is a 48-year-old male with complex past medical history including CVA, previous DVTs, right BKA, cardiac arrest in 2021, Crohn's disease, enterocutaneous fistulas, previous bowel resection. More recently, patient was admitted 12/13/2023 through 12/25/2023 for pneumonia and respiratory failure due to mucous plugging. He was intubated and placed on mechanical ventilator for approximately 6 days. He did have a bronchoscopy with BAL, microbiology positive for haemophilus influenza. Completed his antibiotics. Was discharged home. Unable to get supplies/TPN on discharge, and returned back to the emergency department on 12/26/2023. He was admitted, and while on the general medical floor. Noted to have some bleeding from his ostomy per the RN. This progressively became more copious, is currently dark red with clots. Previously on therapeutic dose of Lovenox, and this has been stopped. Dr. Munoz is aware of this patient, and he did receive 2 L fluid bolus earlier in the day yesterday. Patient is now hypotensive and symptomatic. 2 units of PRBCs are pending. General surgery is consulted and aware. Hemoglobin has dropped from 13.7 on admission, and is currently 9.8 g/dL. Abdominal and pelvis CT showing several areas of active extravasation noted on early arterial phase imaging within the superficial post operative ventral abdominal wall. Indeterminate whether this area of bleeding lies within a conglomeration of superficial bowel loop or is within the postoperative abdominal wall. No evidence of bowel obstruction. Also, dense bibasilar consolidations noted in the lower lobes. Remainder of patient's CBC includes a WBC count 9.1, hemoglobin 9.8, hematocrit 31.6, plat elets 361. Coags include a PT of 11.2, INR of 1, PTT of 28.4. Most recent BMP: Sodium 126, potassium 6.1, chloride 102, serum bicarb 17, BUN 102, creatinine 1, glucose 203. Hyperkalemia was treated with Lokelma, and is currently down to 5.8 g/dL. Patient is currently being evaluated in the intensive care unit. He is resting comfortably on room air. Alert and oriented x 3. Cold and diaphoretic. Blood pressure hypotensive, despite receiving an additional 1 L fluid bolus. Patient is going to be started on norepinephrine until blood products become available. Continues to have large volume dark blood with blood clots. No nausea or vomiting or hematemesis. No abdominal pain. General surgery currently evaluating patient, and recommendations to follow. On 12/31/2023, the patient is is being seen for a follow-up. No evidence of any bleeding from the abdominal wall. Nevertheless, the patient has a very weak congested cough unable to bring up much sputum. Initially was on 5 L of oxygen by nasal cannula and later on during the day he decompensated and currently is on Airvo in addition to 100% nonrebreather facemask. Obviously, the patient is having upper respiratory secretions and the patient will need a bronchoscopy. Chest x-ray showing smaller lung volumes. No evidence of any acute pulmonary filtration. The patient remains on normal citrate of 75 cc an hour. The patient is on TPN at a rate of 120 cc an hour. Norepinephrine is running at 0.06 mcg/kg/min. He is lethargic and arousable and able to communicate. Family is at the bedside. The white cell count is 15 with a hemoglobin 10.2 and a platelet count of 309. BUN is 105 with a creatinine of 1.04 and a sodium level is at 132 and a potassium level of 4.3 and a bicarb of 17. The patient is on TPN for nutritional support. Objective - Vital Signs Vital signs: Vital Signs Temp 98.2 F 12/31/23 08:00 Pulse 102 H 12/31/23 09:00 Resp 21 12/31/23 09:00 BP 111/46 12/31/23 09:00 Pulse Ox 92 L 12/31/23 09:00 FiO2 Intake & Output 12/30/23 12/31/23 12/31/23 18:59 06:59 18:59 Intake Total 6157.144 7919.532 606 Output Total 1010 860 445 Balance 150.774 9756.532 161 Weight 98.4 kg 94.8 kg Intake: IV 900 2451 606 Fat Emulsion 20% 250 ml 231 21 In Empty Bag 1 bag @ 21 mls/hr IV [id number] [facility] Rx#:[id number] Mvi, Adult No.4 with Vit 1320 360 K 10 ml Trace (Conc-1Ml/ Dose) 1 ml Sodium Chloride 4Meq/ml Vial 40 meq Calcium Gluconate 1 gm Sodium Acetate 40 meq In Amino Acid 5%-D15w 1, 000 ml @ 120 mls/hr IV . BY DURATION ANNIE Rx#: [id number] Sodium Chloride 0.9% 1, 900 900 225 000 ml @ 75 mls/hr IV . [id number] [facility] Rx#:[id number] Intake, IV Titration 381.505 397.532 Amount Norepinephrine 4 mg In 381.505 397.532 Sodium Chloride 0.9% 250 ml @ 0.03 MCG/KG/MIN 10. 888 mls/hr IV .[id number] [facility] Rx#:[id number] Output: Drainage 270 150 Right Abdomen 270 150 Urine 740 710 445 Other: Voiding Method Indwelling Catheter Indwelling Catheter - Exam GENERAL EXAM: Alert, 48-year-old male, cold and diaphoretic, the patient is currently on 100% breather with an Airvo high flow system HEAD: Normocephalic and atraumatic EYES: Normal reaction of pupils, equal size. NOSE: Clear with pink turbinates. THROAT: No erythema or exudates. NECK: No masses, no JVD. CHEST: No chest wall deformity. Left subclavian double-lumen central line LUNGS: Equal air entry with no crackles, wheeze, rhonchi or dullness. On room air. No conversational dyspnea or accessory muscle use.. CVS: S1 and S2 normal with no audible murmur, regular rhythm. No extra heart sounds ABDOMEN: Ileostomy with copious dark red output and clots, estimated at 1 L. Bowel sounds present. Abdomen is soft and nontender. No organomegaly. SPINE: No scoliosis or deformity SKIN: No rashes CENTRAL NERVOUS SYSTEM: No focal deficits, tone is normal in all 4 extremities. EXTREMITIES: Right BKA, left leg weakness and left foot drop, remaining distal pulses are weak and only found with Doppler. Extremities are cool with distal cyanosis - Labs CBC & Chem 7: 12/31/23 06:27 12/31/23 06:27 Labs: Abnormal Lab Results - Last 24 Hours (Table) 12/30/23 12/30/23 12/30/23 Range/Units 11:51 14:40 19:10 WBC 12.6 H (3.8-10.6) k/uL RBC 3.22 L (4.30-5.90) m/uL Hgb 9.2 L D (13.0-17.5) gm/dL Hct 31.0 L (39.0-53.0) % MCHC 29.6 L (31.0-37.0) g/dL RDW 16.1 H (11.5-15.5) % Neutrophils # 9.3 H (1.3-7.7) k/uL Sodium (137-145) mmol/L Chloride (98-107) mmol/L Carbon Dioxide (22-30) mmol/L BUN (9-20) mg/dL Glucose (74-99) mg/dL POC Glucose (mg/dL) 213 H 203 H (70-110) mg/dL 12/30/23 12/30/23 12/30/23 Range/Units 20:33 20:50 23:26 WBC (3.8-10.6) k/uL RBC 3.53 L (4.30-5.90) m/uL Hgb 10.1 L (13.0-17.5) gm/dL Hct 31.8 L (39.0-53.0) % MCHC (31.0-37.0) g/dL RDW 16.4 H (11.5-15.5) % Neutrophils # 7.8 H (1.3-7.7) k/uL Sodium (137-145) mmol/L Chloride (98-107) mmol/L Carbon Dioxide (22-30) mmol/L BUN (9-20) mg/dL Glucose (74-99) mg/dL POC Glucose (mg/dL) 187 H 208 H (70-110) mg/dL 12/31/23 12/31/23 12/31/23 Range/Units 03:40 05:04 06:27 WBC 15.5 H 15.1 H (3.8-10.6) k/uL RBC 3.77 L 3.66 L (4.30-5.90) m/uL Hgb 10.5 L 10.2 L (13.0-17.5) gm/dL Hct 34.9 L 34.4 L (39.0-53.0) % MCHC 30.1 L 29.6 L (31.0-37.0) g/dL RDW 16.1 H 16.0 H (11.5-15.5) % Neutrophils # 12.7 H 13.0 H (1.3-7.7) k/uL Sodium (137-145) mmol/L Chloride (98-107) mmol/L Carbon Dioxide (22-30) mmol/L BUN (9-20) mg/dL Glucose (74-99) mg/dL POC Glucose (mg/dL) 196 H (70-110) mg/dL 12/31/23 Range/Units 06:27 WBC (3.8-10.6) k/uL RBC (4.30-5.90) m/uL Hgb (13.0-17.5) gm/dL Hct (39.0-53.0) % MCHC (31.0-37.0) g/dL RDW (11.5-15.5) % Neutrophils # (1.3-7.7) k/uL Sodium 132 L (137-145) mmol/L Chloride 110 H (98-107) mmol/L Carbon Dioxide 17 L (22-30) mmol/L BUN 105 H* (9-20) mg/dL Glucose 217 H (74-99) mg/dL POC Glucose (mg/dL) (70-110) mg/dL Assessment and Plan Assessment: Abdominal wall versus GI bleeding. The patient encountered acute GI bleeding vs bleeding from the abdominal wall, Abdominal and pelvis CT showing several areas of active extravasation noted on early arterial phase imaging within the superficial post operative ventral abdominal wall. Indeterminate whether this area of bleeding lies within a conglomeration of superficial bowel loop or is within the postoperative abdominal wall. No evidence of bowel obstruction. Also, dense bibasilar consolidations noted in the lower lobes. No active bleeding over the past 24 hours in the collection bag is showing brown stool with a stable hemoglobin. Acute blood loss anemia, secondary to above, 2 units PRBCs transfused and the patient is currently running a stable hemoglobin Acute hypoxic respiratory failure, likely secondary to upper respiratory tract secretions. The patient has more lung volumes and restrictive lung disease with obvious neuromuscular weakness. Unable to cough out respiratory secretions and the patient is currently on 100% nonrebreather facemask and on Airvo high flow system. Hypotension and hypovolemic shock, has been aggressively fluid resuscitated with now a total of 3.5 L normal saline fluid, and the patient remains on low-dose pressors Severe hyperkalemia, receiving Lokelma, improved Hypovolemic hyponatremia, improved Prerenal azotemia, improving Recent history of ventilator dependent respiratory failure, secondary to pneumonia, microbiology from BAL positive for haemophilus influenzae History of DVT, previously on therapeutic dose of Lovenox, which is currently stopped History of Crohn's disease complicated by bowel perforation status post colectomy and diverting ileostomy. 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 Currently receiving TPN for nutritional support. 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 cardiac asystole/arrest in 2021 History of tracheostomy and reversal Plan: Keep the Airvo system in addition to 100% nonrebreather facemask. Will set up a bronchoscopy for this patient to be done at the bedside in the intensive care unit. The high risk of intubation mechanical ventilation was also discussed with the family and they were all agreeable. Monitor hemoglobin Monitor hemodynamics and wean off pressors Continue IV fluids with normal saline at rate of 75 cc an hour Continue TPN for nutritional support Monitor hemoglobin Restart Lovenox 40 mg subcu for DVT prophylaxis Protonix twice daily Continue to monitor H&H Obtain chest x-ray was noted and shows no evidence of any pneumonia pulmonary filtration Will continue to monitor and follow-up this patient will do the rest of the consultants. Critically ill male patient with high risk of respiratory failure requiring intubation mechanical ventilation. The plan is to proceed with bronchoscopy at the bedside. Further recommendations are to follow. This evaluation was done and more than 30 minutes. This is working progress.
[2023-12-31 12:57] LABS: Glucose,Whole Blood 261 mg/dL (70-110)
[2023-12-31] MEDS ORDERED: KETAMINE HCL IN 0.9 % NACL 50 MG/5 ML SYRINGE ONE (13:37)
[2023-12-31] MEDS ORDERED: MIDAZOLAM 2 MG/2 ML VIAL ONE (13:37)
--- NOTE | 2023-12-31 14:17 | P.PCN ---
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 Procedure(s) Performed: Flexible bronchoscopy, bronchoalveolar lavage of the left lower lobe. Anesthesia: MAC Surgeon: Estela Holt Pathology: other Condition: critical Disposition: ICU Operative Findings: Flexible bronchoscopy was done in the intensive care unit. The patient was sedated with a combination of ketamine 50 mg and Versed 2 mg IV. This was administered by [employer]INCIP[employer] E[employer]OMIST at bedside. The patient was in a Airvo system with 60 L f low and FiO2 of 90%. The flexor bronchoscope was inserted through the right nostril and it was advanced into the posterior pharynx. Copious amount of respiratory secretions was found in the vallecula, oropharynx, and around the laryngeal wall and covering the epiglottis. Secretions were aspirated without any major difficulties. The vocal cords were functional and there were symmetrical in the midline. A total of 2 cc of 1% lidocaine was applied and following that the flexible bronchoscope was advanced into the upper trachea. Again, the tracheal stenosis was seen at the level of the previous tracheostomy tube insertion site. There was narrowing of the upper tracheal wall by around 50%. I was able to pass this area of stenosis and a full airway inspection was done. There was tracheobronchomalacia. Copious amount of thick secretions retained throughout the airways specially lower lobes bilaterally. The lower lobe segments were all atelectatic. Therapeutic airway suctioning was done. The bronchial lavage of the left lower lobe was done. Inspected airways included the trachea, bilateral mainstem bronchi, right upper lobe bronchus right middle lobe bronchus right lower lobe bronchus left upper lobe bronchus and left lower lobe bronchus along with the various segments and subsegments. At the completion of the procedure, all of the respiratory secretions were suctioned out without any major difficulties. The patient was kept on Airvo and the bronchial lavage from the left lower lobe was sent for microbial cultures and analysis. Patient tolerated procedure well without any major difficulties. This was a successful procedure. Oxygenation improved and the patient's pulse ox is currently at 97% while being on Airvo.
[2023-12-31] MEDS: 1: MVI, ADULT NO.4 WITH VIT K 10 ML, TRACE (CONC-1ML/DOSE) 1 ML, SODIUM CHLORIDE 4MEQ/ML IV SCH (15:19)
[2023-12-31] MEDS ORDERED: VANCOMYCIN IV PER PHARMACY 1 EACH MISC MISCELLANE PRN (18:21)
[2023-12-31] MEDS: SODIUM CHLORIDE 0.9% 2,000 ML IV ONE (18:31)
[2023-12-31 18:37] LABS: Glucose,Whole Blood 207 mg/dL (70-110)
[2023-12-31] MEDS: VANCOMYCIN 1,750 MG in SODIUM CHLORIDE 0.9% 500 ML 500 ML IVPB ONE (19:54)
[2023-12-31] MEDS: INSULIN DETEMIR (LEVEMIR) 100 UNIT/ML SYR SQ SCH (20:00)
--- NOTE | 2023-12-31 21:18 | P.PN ---
Subjective Patient seen and evaluated at bedside. No acute events overnight. Objective - Vital Signs Vital signs: Vital Signs Temp 97.9 F 12/31/23 16:00 Pulse 99 12/31/23 19:00 Resp 17 12/31/23 19:00 BP 91/38 12/31/23 19:00 Pulse Ox 96 12/31/23 19:00 FiO2 50 12/31/23 19:19 Intake & Output 12/31/23 12/31/23 01/01/24 06:59 18:59 06:59 Intake Total 2848.532 3591.230 299.781 Output Total 860 860 25 Balance 8872.842 8071.230 274.781 Weight 94.8 kg Intake: IV 2452000 75 Fat Emulsion 20% 250 ml 231 21 In Empty Bag 1 bag @ 21 mls/hr IV [id number]@1800 [facility] Rx#:[id number] Mvi, Adult No.4 with Vit 1320 1080 K 10 ml Trace (Conc-1Ml/ Dose) 1 ml Sodium Chloride 4Meq/ml Vial 40 meq Calcium Gluconate 1 gm Sodium Acetate 40 meq In Amino Acid 5%-D15w 1, 000 ml @ 120 mls/hr IV . BY DURATION [facility] Rx#: [id number] Sodium Chloride 0.9% 1, 900 900 75 000 ml @ 75 mls/hr IV . [id number] [facility] Rx#:[id number] Intake, IV Titration 603.827 3621.230 224.781 Amount Norepinephrine 4 mg In 397.532 230.230 104.781 Sodium Chloride 0.9% 250 ml @ 0.03 MCG/KG/MIN 10. 888 mls/hr IV .[id number] [facility] Rx#:[id number] Sodium Chloride 0.9% 2, 1000 000 ml @ 999 mls/hr IV . Q2H1M ONE Rx#:[id number] Sodium Chloride 4Meq/ml 360 120 Vial 30 meq Calcium Gluconate 1 gm Sodium Acetate 60 meq Sodium Phosphate 3 mmol Magnesium Sulfate gm 0.25 gm In Amino Acid 5%-D15w 1,000 ml @ 120 mls/hr IV .BY DURATION [facility] Rx#: [id number] Output: Drainage 150 Right Abdomen 150 Urine 710 860 25 Other: Voiding Method Indwelling Catheter Indwelling Catheter - Exam gen: nad cv: rrr pul: non labored breathing abd: soft, non bleeding - Labs CBC & Chem 7: 12/31/23 06:27 12/31/23 06:27 Labs: Abnormal Lab Results - Last 24 Hours (Table) 12/30/23 12/30/23 12/31/23 Range/Units 20:33 23:26 03:40 WBC 15.5 H (3.8-10.6) k/uL RBC 3.53 L 3.77 L (4.30-5.90) m/uL Hgb 10.1 L 10.5 L (13.0-17.5) gm/dL Hct 31.8 L 34.9 L (39.0-53.0) % MCHC 30.1 L (31.0-37.0) g/dL RDW 16.4 H 16.1 H (11.5-15.5) % Neutrophils # 7.8 H 12.7 H (1.3-7.7) k/uL Sodium (137-145) mmol/L Chloride (98-107) mmol/L Carbon Dioxide (22-30) mmol/L BUN (9-20) mg/dL Glucose (74-99) mg/dL POC Glucose (mg/dL) 208 H (70-110) mg/dL 12/31/23 12/31/23 12/31/23 Range/Units 05:04 06:27 06:27 WBC 15.1 H (3.8-10.6) k/uL RBC 3.66 L (4.30-5.90) m/uL Hgb 10.2 L (13.0-17.5) gm/dL Hct 34.4 L (39.0-53.0) % MCHC 29.6 L (31.0-37.0) g/dL RDW 16.0 H (11.5-15.5) % Neutrophils # 13.0 H (1.3-7.7) k/uL Sodium 132 L (137-145) mmol/L Chloride 110 H (98-107) mmol/L Carbon Dioxide 17 L (22-30) mmol/L BUN 105 H* (9-20) mg/dL Glucose 217 H (74-99) mg/dL POC Glucose (mg/dL) 196 H (70-110) mg/dL 10/15/24 10/15/24 Range/Units 12:55 18:35 WBC (3.8-10.6) k/uL RBC (4.30-5.90) m/uL Hgb (13.0-17.5) gm/dL Hct (39.0-53.0) % MCHC (31.0-37.0) g/dL RDW (11.5-15.5) % Neutrophils # (1.3-7.7) k/uL Sodium (137-145) mmol/L Chloride (98-107) mmol/L Carbon Dioxide (22-30) mmol/L BUN (9-20) mg/dL Glucose (74-99) mg/dL POC Glucose (mg/dL) 261 H 207 H (70-110) mg/dL Assessment and Plan Assessment: Acute GI bleed at the ileostomy site History of Crohn's with bowel perforation requiring ileostomy. Also has 2 enterocutaneous fistulas on his anterior abdominal wall PLAN: -no bleeding at this time -Keep patient n.p.o. -Continue IV fluids -Continue IV Protonix -Continue to check CBC every 6 hours -Continue TPN for nutrition support Time with Patient: Less than 30
[2023-12-31] MEDS: PIPERACILLIN-TAZOBACTAM 3.375 GM in SODIUM CHLORIDE 0.9% 100 ML IVPB SCH (23:27)
[2023-12-31 23:57] LABS: Glucose,Whole Blood 184 mg/dL (70-110)
[2024-01-01 01:52] LABS: Anisocytosis Slight; HCT 27.5 % (39.0-53.0); Hypochromasia Marked; MCH 28.5 pg (25.0-35.0); MCHC 30.8 g/dL (31.0-37.0); MCV 92.5 fL (80.0-100.0); Mean Platelet Volume 9.9; Platelet Count 328 k/uL (150-450); Poikilocytosis Slight; RBC 2.98 m/uL (4.30-5.90); RDW 16.4 % (11.5-15.5); WBC 21.9 k/uL (3.8-10.6)
[2024-01-01 02:01] LABS: ALT 15 U/L (4-49); AST 17 U/L (17-59); African American GFR (CKD) >90 (>60 ml/min/1.73 sqM); Albumin 2.2 g/dL (3.5-5.0); Alkaline Phosphatase 68 U/L (38-126); Anion Gap 3 mmol/L; Calcium 8.2 mg/dL (8.4-10.2); Carbon Dioxide 23 mmol/L (22-30); Chloride 115 mmol/L (98-107); Glucose 195 mg/dL (74-99); Non-African American GFR(CKD) 87 (>60 ml/min/1.73 sqM); Potassium 3.2 mmol/L (3.5-5.1); Sodium 141 mmol/L (137-145); Total Bilirubin 0.4 mg/dL (0.2-1.3); Total Protein 5.3 g/dL (6.3-8.2)
[2024-01-01 02:11] LABS: HGB 8.5 gm/dL (13.0-17.5)
--- NOTE | 2024-01-01 02:23 | XR ---
EXAM: XR Chest, 1 View CLINICAL HISTORY: ITS.REASON XR Reason: ilia TECHNIQUE: Frontal view of the chest. COMPARISON: No relevant prior studies available. FINDINGS: Lungs: Dependent airspace consolidations, concerning for multilobar pneumonia. Pleural space: Small bilateral pleural effusions. No pneumothorax. Heart: Unremarkable. No cardiomegaly. Mediastinum: Unremarkable. Normal mediastinal contour. Bones/joints: Unremarkable. No acute fracture. Vasculature: LEFT subclavian line terminates in the SVC. Tubes, lines and devices: Feeding tube terminates in the stomach. Endotracheal tube terminates 3.6 cm above the avery. IMPRESSION: 1. Dependent airspace consolidations, concerning for multilobar pneumonia. Small bilateral pleural effusions. 2. Feeding tube terminates in the stomach. 3. Endotracheal tube terminates 3.6 cm above the avery.
[2024-01-01 02:31] LABS: Blood Urea Nitrogen 105 mg/dL (9-20)
[2024-01-01] MEDS: HYDROCORTISONE SUCCINATE 100 MG/2 ML VIAL IV STA (02:40)
[2024-01-01] MEDS: LIDOCAINE 1% INJ 10MG/ML (20 ML MDV) SQ ONE (02:40)
[2024-01-01] MEDS: NOREPINEPHRINE 32 MG in SODIUM CHLORIDE 0.9% 218 ML IV SCH (02:41)
[2024-01-01] MEDS: VASOPRESSIN 20 UNIT in SODIUM CHLORIDE 0.9% 50 ML IV SCH (02:41)
[2024-01-01] MEDS: SODIUM BICARB 8.4% 50 ML SYR (1 MEQ/ML) IV STA ×2 (02:41→06:11)
[2024-01-01 03:16] LABS: ABG Base Excess -11.2 mmol/L; ABG HCO3 19 mmol/L (21-25); ABG PCO2 64 mmHg (35-45); ABG PH 7.07 (7.35-7.45); ABG PO2 286 mmHg (83-108); ABG TCO2 21 mmol/L (19-24); Allen Test Performed? no
--- NOTE | 2024-01-01 03:54 | P.PCN ---
Date of Procedure: 01/01/24 Preoperative Diagnosis: Hypotension and shock Postoperative Diagnosis: Hypotension and shock Procedure(s) Performed: Insertion of a left femoral arterial line Indications for Procedure: Continuous blood pressure monitoring and frequent blood draws Description of Procedure: Informed consent was obtained, and a procedural timeout was performed . The patient was placed in supine position. The left femoral region was prepared in a sterile fashion, and a sterile drape was applied. The left femoral artery was palpated, easily cannulated, and a guidewire was placed. Dilator catheter was placed and removed. A Cook catheter was inserted over the guidewire, and the guidewire was removed. There was good arterial blood flow, good arterial waveform, and no complications. The line was secured with using a 3-0 silk suture.
[2024-01-01] MEDS: POTASSIUM BICARBONATE/CIT AC 20 MEQ TABLET.EFF NG-TUBE SCH (04:00)
[2024-01-01] MEDS: IPRATROPIUM-ALBUTEROL 3 ML NEB INHALATION SCH (04:13)
[2024-01-01 04:40] LABS: ABG Base Excess -10.7 mmol/L; ABG HCO3 17 mmol/L (21-25); ABG PCO2 42 mmHg (35-45); ABG PH 7.21 (7.35-7.45); ABG PO2 89 mmHg (83-108); ABG TCO2 18 mmol/L (19-24)
[2024-01-01 04:55] LABS: Allen Test Performed? no
--- NOTE | 2024-01-01 05:37 | P.PN ---
Subjective Progress Note Date: 12/31/23 This is a pleasant 48 years old male with past medical history of Crohn disease complicated with bowel perforation requiring ileostomy, also has 2 fistula in his anterior abdominal Wall, patient also has left upper chest portal to receive TPN who was only discharged yesterday after being admitted to the hospital for pneumonia and respiratory failure was discharged yesterday in stable condition. Patient came back to the ER today because of debility and having issues with his TPN supplies. There has been some issues with primary care appointments and orders with TPN requiring signature from his PCP. At this time patient denies any chest pain or shortness of breath. There was no complaint of fever or chills. Denies any nausea, vomiting, abdominal pain. Denies any lightheaded dizziness. Initial lab work done in the ER showed W6.3, hemoglobin 20.7, platelet count 264, sodium 130, potassium 4.9, BUN 20, creatinine 0.41, phosphorus 2.4, alk phos 133, total protein 9 Patient admitted to internal medicine service 12/26. Patient seen and examined. Complaining of pain in his right hand. D enies any shortness of breath /12. Patient seen and examined. Potassium level this morning was 5.5, patient was getting potassium supplementation, will DC it for now. 12/28. Patient seen and examined. Patient had a rapid response called overnight for low blood pressure, patient was given 2-1/2 L of fluid. Labs on this morning showed WBC 10.4, hemoglobin 14.4, platelet count 420, sodium 124, p otassium 5.5, BUN 104, creatinine 1.59. Ostomy output is blood-tinged. 12/30/2023 Patient continues in the ICU requiring low-dose pressor support and currently being weaned. Multiple consultations following including general surgery and did a washout of the abdomen early this morning along with cauterizing and placing sutures to an area near the ostomy that had been bleeding. Hemoglobin is stable and is being closely monitored with hemoglobins every 6 hours. Transfuse if 7 or less. Patient to continue with strict n.p.o. and is maintained on TPN. Blood sugars have been more elevated and will add long- acting and adjust insulins accordingly 12/31/2023 Patient continues in the ICU with multiple consultations following. Patient requiring increased oxygen demands currently on 6 L and transition to Airvo and pulmonary tonnage compilation clerk following planning on bronchoscopy today. Patient is a febrile although continues with an elevated white count and hemoglobin is stable above 8 with no active bleeding noted. Patient is n.p.o. maintained on TPN at this time. Blood sugars continue to be in the 200s consistently and will adjust long-acting and continue sliding scale. REVIEW OF SYSTEMS: CONSTITUTIONAL: No fever, no malaise,. Complaining of lethargy CARDIOVASCULAR: No chest pain, no palpitations, no syncope. PULMONARY: Reports worsening shortness of breath, weak cough GASTROINTESTINAL: No diarrhea, no nausea, no vomiting, no abdominal pain. NEUROLOGICAL: No headache, reports of severe weakness PHYSICAL EXAMINATION: GENERAL: The patient is alert and oriented x3, ill looking, elderly appearing, obese HEENT: Pupils are round and equally reacting to light. EOMI. No scleral icterus. No conjunctival pallor. Normocephalic, atraumatic. No pharyngeal erythema. No thyromegaly. CARDIOVASCULAR: S1 and S2 muffled PULMONARY: Diminished breath sound the bases bilaterally with coarse rhonchi and a few scattered crackles ABDOMEN: Soft, nontender, nondistended,. Ostomy seen and no longer blood-tinged MUSCULOSKELETAL: No joint swelling or deformity. Right BKA EXTREMITIES: No cyanosis, clubbing, or pedal edema. NEUROLOGICAL: Gross neurological examination did not reveal any focal deficits. Diffusely weak SKIN: No rashes. Pale Assessment: Hypotension with hypotensive shock requiring pressor support likely secondary to acute GI bleed and hypovolemia Acute GI bleed from the ostomy secondary to an abdominal wall extravasation near the ostomy requiring sutures and cauterization 12/30/2023 Acute blood loss anemia secondary to above acute kidney injury secondary to hypotension History of DVT Acute on chronic hypoxic respiratory failure requiring Airvo, scheduled for bronchoscopy today 12/31/2023 Moderate protein calorie malnutrition maintained on TPN Hyperkalemia, improved status post Lokelma Hyponatremia history of Crohn disease complicated with bowel perforation requiring ileostomy, also has 2 fistula in his anterior abdominal Wall, patient also has left upper chest portal to receive 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 Patient continues on low-dose pressor support and being weaned General Surgery following status post abdominal washout of the ostomy area and sutures placed with cauterization as there was an area that was bleeding near the ostomy. TPN has been resumed and tolerating Monitor H&H every 6 and transfuse if 7 or less. Patient has required 2 units of PRBC since admission. No further bleeding noted and hemoglobin remains above 8 Blood sugars have been mildly elevated and recommend to monitor Accu-Cheks before meals and at bedtime and will continue sliding scale and add long-acting and adjust accordingly Patient requiring increased oxygen demands currently on Airvo and pulmonary tonnage compilation clerk following planning on bronchoscopy this afternoon. Will await report Patient being monitored closely on IV fluids and diuretics have been held. Will follow-up on repeat labs and monitor electrolytes closely Case management/social work following and patient will require outpatient TPN supplies and follow-up with primary care provider. Due to multiple complex medical issues, overall prognosis is extremely guarded The impression and plan of care has been dictated by Alyssa Hernandez, Nurse Practitioner as directed. Dr. Gerry MD I have performed a history and examination and MDM of this patient, discussed the same with the dictator, and agree with the dictator's assessment and plan as written ,documented as a scribe. Based on total visit time, I have performed more than 50% of the visit. Anterior fucking pager idiot Objective - Vital Signs Vital signs: Vital Signs Temp 98.2 F 12/31/23 08:00 Pulse 105 H 12/31/23 10:00 Resp 20 12/31/23 10:00 BP 125/50 12/31/23 10:00 Pulse Ox 90 L 12/31/23 10:00 FiO2 Intake & Output 12/30/23 12/31/23 12/31/23 18:59 06:59 18:59 Intake Total 6331.358 6506.532 879.833 Output Total 1010 860 545 Balance 839.745 2436.532 334.833 Weight 98.4 kg 94.8 kg Intake: IV 900 2451 801 Fat Emulsion 20% 250 ml 231 21 In Empty Bag 1 bag @ 21 mls/hr IV [id number] [facility] Rx#:[id number] Mvi, Adult No.4 with Vit 1320 480 K 10 ml Trace (Conc-1Ml/ Dose) 1 ml Sodium Chloride 4Meq/ml Vial 40 meq Calcium Gluconate 1 gm Sodium Acetate 40 meq In Amino Acid 5%-D15w 1, 000 ml @ 120 mls/hr IV . BY DURATION [facility] Rx#: [id number] Sodium Chloride 0.9% 1, 900 900 300 000 ml @ 75 mls/hr IV . [id number] [facility] Rx#:[id number] Intake, IV Titration 381.505 397.532 78.833 Amount Norepinephrine 4 mg In 381.505 397.532 78.833 Sodium Chloride 0.9% 250 ml @ 0.03 MCG/KG/MIN 10. 888 mls/hr IV .[id number] [facility] Rx#:[id number] Output: Drainage 270 150 Right Abdomen 270 150 Urine 740 710 545 Other: Voiding Method Indwelling Catheter Indwelling Catheter - Labs CBC & Chem 7: 01/01/24 01:42 01/01/24 01:42 Labs: Abnormal Lab Results - Last 24 Hours (Table) 12/30/23 12/30/23 12/30/23 Range/Units 11:51 14:40 19:10 WBC 12.6 H (3.8-10.6) k/uL RBC 3.22 L (4.30-5.90) m/uL Hgb 9.2 L D (13.0-17.5) gm/dL Hct 31.0 L (39.0-53.0) % MCHC 29.6 L (31.0-37.0) g/dL RDW 16.1 H (11.5-15.5) % Neutrophils # 9.3 H (1.3-7.7) k/uL Sodium (137-145) mmol/L Chloride (98-107) mmol/L Carbon Dioxide (22-30) mmol/L BUN (9-20) mg/dL Glucose (74-99) mg/dL POC Glucose (mg/dL) 213 H 203 H (70-110) mg/dL 12/30/23 12/30/23 12/30/23 Range/Units 20:33 20:50 23:26 WBC (3.8-10.6) k/uL RBC 3.53 L (4.30-5.90) m/uL Hgb 10.1 L (13.0-17.5) gm/dL Hct 31.8 L (39.0-53.0) % MCHC (31.0-37.0) g/dL RDW 16.4 H (11.5-15.5) % Neutrophils # 7.8 H (1.3-7.7) k/uL Sodium (137-145) mmol/L Chloride (98-107) mmol/L Carbon Dioxide (22-30) mmol/L BUN (9-20) mg/dL Glucose (74-99) mg/dL POC Glucose (mg/dL) 187 H 208 H (70-110) mg/dL 12/31/23 12/31/23 12/31/23 Range/Units 03:40 05:04 06:27 WBC 15.5 H 15.1 H (3.8-10.6) k/uL RBC 3.77 L 3.66 L (4.30-5.90) m/uL Hgb 10.5 L 10.2 L (13.0-17.5) gm/dL Hct 34.9 L 34.4 L (39.0-53.0) % MCHC 30.1 L 29.6 L (31.0-37.0) g/dL RDW 16.1 H 16.0 H (11.5-15.5) % Neutrophils # 12.7 H 13.0 H (1.3-7.7) k/uL Sodium (137-145) mmol/L Chloride (98-107) mmol/L Carbon Dioxide (22-30) mmol/L BUN (9-20) mg/dL Glucose (74-99) mg/dL POC Glucose (mg/dL) 196 H (70-110) mg/dL 12/31/23 Range/Units 06:27 WBC (3.8-10.6) k/uL RBC (4.30-5.90) m/uL Hgb (13.0-17.5) gm/dL Hct (39.0-53.0) % MCHC (31.0-37.0) g/dL RDW (11.5-15.5) % Neutrophils # (1.3-7.7) k/uL Sodium 132 L (137-145) mmol/L Chloride 110 H (98-107) mmol/L Carbon Dioxide 17 L (22-30) mmol/L BUN 105 H* (9-20) mg/dL Glucose 217 H (74-99) mg/dL POC Glucose (mg/dL) (70-110) mg/dL
[2024-01-01 06:05] LABS: Glucose,Whole Blood 273 mg/dL (70-110)
--- NOTE | 2024-01-01 07:21 | XR ---
EXAMINATION TYPE: XR chest 1V portable DATE OF EXAM: 01/01/2024 7:08 AM CLINICAL INDICATION: Male, 48 years old with history of mechanical ventilation; H COMPARISON: Chest radiographs from 01/01/2024 TECHNIQUE: XR chest 1V portable Frontal view of the chest. FINDINGS: Lungs/Pleura: Left basilar airspace opacities. There is no evidence of pleural effusion, focal consol idation, or pneumothorax. Pulmonary vascularity: Unremarkable. Heart/mediastinum: Cardiomediastinal silhouette is unremarkable. Musculoskeletal: No acute osseous pathology. Other findings: None Lines/Tubes: Endotracheal tube with distal tip 2.1 cm above the avery. Nasogastric tube with its distal tip and side-port projecting under the diaphragm. Hbeduy-a-Inwu projecting over the left hemithorax with distal tip at the cavoatrial junction. IMPRESSION: Left basilar atelectasis and/or airspace disease. [facility], , 01/01/2024 7:19 AM
[2024-01-01] MEDS: CHLORHEXIDINE GLUCONATE 15 ML CUP MUCOUS MEM SCH (08:37)
[2024-01-01] MEDS: VANCOMYCIN 1,500 MG in SODIUM CHLORIDE 0.9% 500 ML 500 ML IVPB SCH (08:37)
[2024-01-01] MEDS: SODIUM CHLORIDE 0.9% 1,000 ML IV ONE (10:07)
[2024-01-01 11:08] LABS: Anisocytosis Slight; Basophils % (A) 0 %; Eosinophils % (A) 0 %; HCT 25.5 % (39.0-53.0); HGB 7.8 gm/dL (13.0-17.5); Hypochromasia Marked; Lymphocytes # (A) 0.9 k/uL (1.0-4.8); Lymphocytes % (A) 5 %; MCH 28.1 pg (25.0-35.0); MCHC 30.7 g/dL (31.0-37.0); MCV 91.3 fL (80.0-100.0); Mean Platelet Volume 9.1; Monocytes # (A) 0.8 k/uL (0-1.0); Monocytes % (A) 4 %; Neutrophils # (A) 15.2 k/uL (1.3-7.7); Neutrophils % (A) 89 %; Platelet Count 325 k/uL (150-450); Poikilocytosis Slight; RBC 2.79 m/uL (4.30-5.90); RDW 16.6 % (11.5-15.5); WBC 17.1 k/uL (3.8-10.6)
--- NOTE | 2024-01-01 11:14 | P.PN ---
Subjective patient is seen for follow-up for acute kidney injury and hyponatremia. Maintained on normal saline along with TPN. Serum sodium is 141 today. Serum creatinine at 1.0. Patient was intubated yesterday.he is also on pressors and maintained on levo fed and vasopressin. Status post fluid boluses. Status post bronchoscopy yesterday with lot of secretions noted. Urine output 150-200 mL per hour Objective - Vital Signs Vital signs: Vital Signs Temp 100.3 F H 01/01/24 08:00 Pulse 92 01/01/24 10:15 Resp 26 H 01/01/24 10:15 BP 115/50 01/01/24 10:00 Pulse Ox 100 01/01/24 10:15 FiO2 50 01/01/24 09:40 Intake & Output 12/31/23 01/01/24 01/01/24 18:59 06:59 18:59 Intake Total 3591.230 4356.493 2168.706 Output Total 860 1530 850 Balance 2731.230 2826.493 1318.706 Weight 96 kg 96 kg Intake: IV 2000 825 300 Fat Emulsion 20% 250 ml 21 In Empty Bag 1 bag @ 21 mls/hr IV [id number] [facility] Rx#:[id number] Mvi, Adult No.4 with Vit 1080 K 10 ml Trace (Conc-1Ml/ Dose) 1 ml Sodium Chloride 4Meq/ml Vial 40 meq Calcium Gluconate 1 gm Sodium Acetate 40 meq In Amino Acid 5%-D15w 1, 000 ml @ 120 mls/hr IV . BY DURATION [facility] Rx#: [id number] Sodium Chloride 0.9% 900 825 300 000 ml @ 75 mls/hr IV . [id number] [facility] Rx#:[id number] Intake, IV Titration 1475.895 4948.493 1868.706 Amount Norepinephrine 32 mg In 177.782 Sodium Chloride 0.9% 218 ml @ 0.03 MCG/KG/MIN 1. 333 mls/hr IV .Q24H [facility] Rx#:[id number] Norepinephrine 4 mg In 230.230 339.167 Sodium Chloride 0.9% 250 ml @ 0.03 MCG/KG/MIN 10. 888 mls/hr IV .[id number] [facility] Rx#:[id number] Piperacillin-Tazobactam 3 100 100 .375 gm In Sodium Chloride 0.9% 100 ml @ 25 mls/hr IVPB Q8HR [facility] Rx# :[id number] Sodium Chloride 0.9% 1, 1000 000 ml @ 999 mls/hr IV . Q1H1M [facility] Rx#:[id number] Sodium Chloride 0.9% 2, 1000 1000 000 ml @ 999 mls/hr IV . Q2H1M [facility] Rx#:[id number] Sodium Chloride 4Meq/ml 360 1529 Vial 30 meq Calcium Gluconate 1 gm Sodium Acetate 60 meq Sodium Phosphate 3 mmol Magnesium Sulfate gm 0.25 gm In Amino Acid 5%-D15w 1,000 ml @ 120 mls/hr IV .BY DURATION [facility] Rx#: [id number] Vancomycin 1,500 mg In 500 Sodium Chloride 0.9% 500 ml 500 ml @ 167 mls/hr IVPB Q12H [facility] Rx#: [id number] Vancomycin 1,750 mg In 500 Sodium Chloride 0.9% 500 ml 500 ml @ 167 mls/hr IVPB ONCE [facility] Rx#: [id number] Vasopressin 20 unit In 28.356 Sodium Chloride 0.9% 50 ml @ 0.03 UNITS/MIN 4.59 mls/hr IV .[id number] [facility] Rx# :[id number] propofoL 1,000 mg In 63.326 62.568 Empty Bag 1 bag @ 15 MCG/ KG/MIN 8.532 mls/hr IV . [id number] [facility] Rx#:[id number] Output: Urine 860 1130 850 Stool 400 Other: Voiding Method Indwelling Catheter Indwelling Catheter ABP, PAP, CO, CI - Last Documented Arterial Blood Pressure 116/52 - Exam patient is sedated and on the vent. Examination of the heart S1 and S2 Examination of the lungs bilateral breath sounds are heard Abdomen is soft obese nontender, ileostomy right BKA noted Atrophy of lower extremities noted. - Labs CBC & Chem 7: 01/01/24 10:35 01/01/24 01:42 Labs: Abnormal Lab Results - Last 24 Hours (Table) 12/31/23 12/31/23 12/31/23 Range/Units 12:55 18:35 23:56 WBC (3.8-10.6) k/uL RBC (4.30-5.90) m/uL Hgb (13.0-17.5) gm/dL Hct (39.0-53.0) % MCHC (31.0-37.0) g/dL RDW (11.5-15.5) % Neutrophils # (1.3-7.7) k/uL Lymphocytes # (1.0-4.8) k/uL ABG pH (7.35-7.45) ABG pCO2 (35-45) mmHg ABG pO2 (83-108) mmHg ABG HCO3 (21-25) mmol/L ABG Total CO2 (19-24) mmol/L ABG O2 Saturation (94-97) % Hemoglobin (13.0-17.5) gm/dL Potassium (3.5-5.1) mmol/L Chloride (98-107) mmol/L BUN (9-20) mg/dL Glucose (74-99) mg/dL POC Glucose (mg/dL) 261 H 207 H 184 H (70-110) mg/dL Calcium (8.4-10.2) mg/dL Total Protein (6.3-8.2) g/dL Albumin (3.5-5.0) g/dL Cortisol (3.1-22.4) UG/DL 01/01/24 01/01/24 01/01/24 Range/Units 00:56 01:42 01:42 WBC 21.9 H (3.8-10.6) k/uL RBC 2.98 L (4.30-5.90) m/uL Hgb 8.5 L D (13.0-17.5) gm/dL Hct 27.5 L (39.0-53.0) % MCHC 30.8 L (31.0-37.0) g/dL RDW 16.4 H (11.5-15.5) % Neutrophils # (1.3-7.7) k/uL Lymphocytes # (1.0-4.8) k/uL ABG pH (7.35-7.45) ABG pCO2 (35-45) mmHg ABG pO2 (83-108) mmHg ABG HCO3 (21-25) mmol/L ABG Total CO2 (19-24) mmol/L ABG O2 Saturation (94-97) % Hemoglobin (13.0-17.5) gm/dL Potassium 3.2 L (3.5-5.1) mmol/L Chloride 115 H (98-107) mmol/L BUN 105 H* (9-20) mg/dL Glucose 195 H (74-99) mg/dL POC Glucose (mg/dL) (70-110) mg/dL Calcium 8.2 L (8.4-10.2) mg/dL Total Protein 5.3 L (6.3-8.2) g/dL Albumin 2.2 L (3.5-5.0) g/dL Cortisol 25.7 H (3.1-22.4) UG/DL 01/01/24 01/01/24 01/01/24 Range/Units 02:07 04:37 06:03 WBC (3.8-10.6) k/uL RBC (4.30-5.90) m/uL Hgb (13.0-17.5) gm/dL Hct (39.0-53.0) % MCHC (31.0-37.0) g/dL RDW (11.5-15.5) % Neutrophils # (1.3-7.7) k/uL Lymphocytes # (1.0-4.8) k/uL ABG pH 7.07 L* 7.21 L (7.35-7.45) ABG pCO2 64 H (35-45) mmHg ABG pO2 286 H (83-108) mmHg ABG HCO3 19 L 17 L (21-25) mmol/L ABG Total CO2 18 L (19-24) mmol/L ABG O2 Saturation 99.0 H 98.0 H (94-97) % Hemoglobin 8.9 L (13.0-17.5) gm/dL Potassium (3.5-5.1) mmol/L Chloride (98-107) mmol/L BUN (9-20) mg/dL Glucose (74-99) mg/dL POC Glucose (mg/dL) 273 H (70-110) mg/dL Calcium (8.4-10.2) mg/dL Total Protein (6.3-8.2) g/dL Albumin (3.5-5.0) g/dL Cortisol (3.1-22.4) UG/DL 01/01/24 Range/Units 10:35 WBC 17.1 H (3.8-10.6) k/uL RBC 2.79 L (4.30-5.90) m/uL Hgb 7.8 L (13.0-17.5) gm/dL Hct 25.5 L (39.0-53.0) % MCHC 30.7 L (31.0-37.0) g/dL RDW 16.6 H (11.5-15.5) % Neutrophils # 15.2 H (1.3-7.7) k/uL Lymphocytes # 0.9 L (1.0-4.8) k/uL ABG pH (7.35-7.45) ABG pCO2 (35-45) mmHg ABG pO2 (83-108) mmHg ABG HCO3 (21-25) mmol/L ABG Total CO2 (19-24) mmol/L ABG O2 Saturation (94-97) % Hemoglobin (13.0-17.5) gm/dL Potassium (3.5-5.1) mmol/L Chloride (98-107) mmol/L BUN (9-20) mg/dL Glucose (74-99) mg/dL POC Glucose (mg/dL) (70-110) mg/dL Calcium (8.4-10.2) mg/dL Total Protein (6.3-8.2) g/dL Albumin (3.5-5.0) g/dL Cortisol (3.1-22.4) UG/DL Assessment and Plan Assessment: 1. Acute kidney injury, nonoliguric, related to hypotension. UA is benign. Maintained on IV fluids. BUN disproportionately elevated from GI bleed 2. Hypovolemic hyponatremia, improved with saline. 3. Metabolic acidosis secondary to acute kidney injury 4. History of Crohn's disease and bowel perforations currently on TPN. History of ileostomy 5. Hyperkalemia associated with acute kidney injury and GI bleed 6. Acute GI bleed 7. Acute hypoxic respiratory failure Plan: continue antibiotics continue with saline Replace potassium
[2024-01-01 11:21] LABS: African American GFR (CKD) >90 (>60 ml/min/1.73 sqM); Anion Gap 6 mmol/L; Blood Urea Nitrogen 82 mg/dL (9-20); Calcium 8.2 mg/dL (8.4-10.2); Carbon Dioxide 21 mmol/L (22-30); Chloride 115 mmol/L (98-107); Glucose 186 mg/dL (74-99); Magnesium 1.5 mg/dL (1.6-2.3); Non-African American GFR(CKD) >90 (>60 ml/min/1.73 sqM); Sodium 142 mmol/L (137-145)
[2024-01-01 11:48] LABS: Glucose,Whole Blood 165 mg/dL (70-110)
[2024-01-01 12:05] LABS: Phosphorus 0.9 mg/dL (2.5-4.5); Potassium 2.7 mmol/L (3.5-5.1)
[2024-01-01] MEDS: ANIDULAFUNGIN 200 MG in SODIUM CHLORIDE 0.9% 200 ML IVPB ONE (12:22)
[2024-01-01] MEDS: POTASSIUM PHOSPHATE 10 MMOL in SODIUM CHLORIDE 0.9% 100 ML IV SCH (12:34)
[2024-01-01] MEDS: MAGNESIUM SULFATE-D5W PMX 1 GM in DEXTROSE/WATER 1 100ML.BAG IVPB SCH (12:34)
--- NOTE | 2024-01-01 13:40 | P.PN ---
Subjective Progress Note Date: 01/01/24 This is a pleasant 48 years old male with past medical history of Crohn disease complicated with bowel perforation requiring ileostomy, also has 2 fistula in his anterior abdominal Wall, patient also has left upper chest portal to receive TPN who was only discharged yesterday after being admitted to the hospital for pneumonia and respiratory failure was discharged yesterday in stable condition. Patient came back to the ER today because of debility and having issues with his TPN supplies. There has been some issues with primary care appointments and orders with TPN requiring signature from his PCP. At this time patient denies any chest pain or shortness of breath. There was no complaint of fever or chills. Denies any nausea, vomiting, abdominal pain. Denies any lightheaded dizziness. Initial lab work done in the ER showed W6.3, hemoglobin 20.7, platelet count 264, sodium 130, potassium 4.9, BUN 20, creatinine 0.41, phosphorus 2.4, alk phos 133, total protein 9 Patient admitted to internal medicine service 12/26. Patient seen and examined. Complaining of pain in his right hand. D enies any shortness of breath /12. Patient seen and examined. Potassium level this morning was 5.5, patient was getting potassium supplementation, will DC it for now. 12/28. Patient seen and examined. Patient had a rapid response called overnight for low blood pressure, patient was given 2-1/2 L of fluid. Labs on this morning showed WBC 10.4, hemoglobin 14.4, platelet count 420, sodium 124, p otassium 5.5, BUN 104, creatinine 1.59. Ostomy output is blood-tinged. 12/30/2023 Patient continues in the ICU requiring low-dose pressor support and currently being weaned. Multiple consultations following including general surgery and did a washout of the abdomen early this morning along with cauterizing and placing sutures to an area near the ostomy that had been bleeding. Hemoglobin is stable and is being closely monitored with hemoglobins every 6 hours. Transfuse if 7 or less. Patient to continue with strict n.p.o. and is maintained on TPN. Blood sugars have been more elevated and will add long- acting and adjust insulins accordingly 12/31/2023 Patient continues in the ICU with multiple consultations following. Patient requiring increased oxygen demands currently on 6 L and transition to Airvo and pulmonary head control clerk following planning on bronchoscopy today. Patient is a febrile although continues with an elevated white count and hemoglobin is stable above 8 with no active bleeding noted. Patient is n.p.o. maintained on TPN at this time. Blood sugars continue to be in the 200s consistently and will adjust long-acting and continue sliding scale. 01/01/2024 patient is seen in follow up today and experienced increasing respiratory demands and became more obtunded and unresponsive requiring mechanical ventilation. Patient FiO2 is 50% with a PEEP of 8 and is status post bronchoscopy yesterday. Patient maintained on Levophed and vasopressin along with propofol. White count is elevated and patient is continued on IV antibiotics in the form of vancomycin and Zosyn. Cultures have been sent and pending at this time. Will consult infectious disease and appreciate input and recommendations. Hemoglobin is stable at 7.8 with no active bleeding noted. Potassium 2.7 and magnesium 1.5 along with phosphorus 0.9 and being replaced per protocol. Kidney functions remained stable at this time other than a chloride of 115 and sodium is 142. Patient is also being started on Eraxis. Recommend adjusting TPN per dietary and pharmacy. Overall prognosis remains extremely guarded at this time. REVIEW OF SYSTEMS: Unable to assess as patient is on sedation and mechanically ventilated Active Medications Hydrocodone Bitart/Acetaminophen (Hydrocodone/Apap 10-325mg 1 Each Tab) 1 each PO Q6HR PRN PRN Reason: Pain Last Admin: 12/31/23 21:19 Dose: 1 each Albuterol Sulfate (Albuterol Nebulized 2.5 Mg/3 Ml) 2.5 mg INHALATION RT-Q4H PRN PRN Reason: Shortness Of Breath Last Admin: 01/01/24 03:11 Dose: 2.5 mg Albuterol/Ipratropium (Ipratropium-Albuterol 3 Ml Neb) 3 ml INHALATION RT-Q4H ANNIE Last Admin: 01/01/24 11:39 Dose: 3 ml Chlorhexidine Gluconate (Chlorhexidine Gluconate 15 Ml Cup) 15 ml MUCOUS MEM BID [facility] Last Admin: 01/01/24 08:37 Dose: 15 ml Cholecalciferol (Cholecalciferol 125 Mcg (5000 Iu) Tablet) 1,250 mcg PO MOTH [facility] Last Admin: 12/30/23 11:05 Dose: Not Given Dextrose/Water (Dextrose 50% Syringe 50 Ml) 25 ml IVP PER PROTOCOL PRN; Protocol PRN Reason: Hypoglycemia Dextrose/Water (Dextrose 50% Syringe 50 Ml) 50 ml IVP PER PROTOCOL PRN; Protocol PRN Reason: Hypoglycemia Enoxaparin Sodium (Enoxaparin 40 Mg/0.4 Ml Syringe) 40 mg SQ DAILY [facility] Last Admin: 01/01/24 08:37 Dose: 40 mg Ferrous Sulfate (Ferrous Sulfate 325 Mg Tab) 325 mg PO DAILY@0900 [facility] Last Admin: 01/01/24 08:38 Dose: Not Given Heparin Sodium (Porcine) (Heparin Lock 500 Unit/5 Ml 100 Unit/Ml Syringe) 500 unit IV DAILY PRN PRN Reason: picc line flush Hydromorphone HCl (Hydromorphone 0.5 Mg/0.5 Ml Syringe) 0.5 mg IVP Q3HR PRN PRN Reason: Pain Last Admin: 12/31/23 08:53 Dose: 0.5 mg Hydromorphone HCl (Hydromorphone 1 Mg/Ml 1 Ml Syringe) 1 mg IVP Q3H PRN PRN Reason: Pain Last Admin: 12/31/23 22:23 Dose: 1 mg Sodium Chloride (Saline 0.9%) 1,000 mls @ 75 mls/hr IV .[id number] [facility] Last Admin: 01/01/24 05:18 Dose: 75 mls/hr Piperacillin Sod/Tazobactam (Sod 3.375 gm/ Sodium Chloride) 100 mls @ 25 mls/hr IVPB Q8HR [facility]; Protocol Last Admin: 01/01/24 08:37 Dose: 25 mls/hr Vancomycin HCl 1,500 mg/ (Sodium Chloride) 500 mls @ 167 mls/hr IVPB Q12H [facility] Last Admin: 01/01/24 08:37 Dose: 167 mls/hr Vasopressin 20 unit/ Sodium (Chloride) 51 mls @ 4.59 mls/hr IV .[id number] [facility]; Protocol Last Admin: 01/01/24 07:19 Dose: 0.03 units/min, 4.59 mls/hr Norepinephrine Bitartrate 32 (mg/ Sodium Chloride) 250 mls @ 1.333 mls/hr IV .Q24H [facility]; Protocol Last Titration: 01/01/24 13:11 Dose: 0.41 mcg/kg/min, 18.219 mls/hr Propofol 1,000 mg/ IV Solution 100 mls @ 8.532 mls/hr IV .[id number] [facility]; Protocol Last Admin: 01/01/24 13:06 Dose: 40 mcg/kg/min, 22.752 mls/hr Anidulafungin 100 mg/ Sodium (Chloride) 100 mls @ 84 mls/hr IVPB DAILY [facility]; Protocol Potassium Phosphate 10 mmol/ (Sodium Chloride) 103.3333 mls @ 50 mls/hr IV Q2H [facility] Stop: 01/01/24 18:29 Last Admin: 01/01/24 12:34 Dose: 50 mls/hr Parenteral Vitamin Supplement 10 ml/ Zinc/Copper/Manganese/Selenium 1 ml/ Sodium Chloride 50 meq/ Sodium Acetate 50 meq / Calcium Gluconate 1 gm/Magnesium Sulfate 1 gm/Potassium Phosphate 15 mmol/Amino Acids/Dextrose 1,065.5 mls @ 55 mls/hr IV .[id number] [facility] Magnesium Sulfate/Dextrose 1 (gm/ IV Solution) 100 mls @ 100 mls/hr IVPB Q1H [facility] Stop: 01/01/24 14:29 Last Admin: 01/01/24 12:34 Dose: 100 mls/hr Insulin Aspart (Insulin Aspart (Novolog) 100 Unit/Ml Vial) 0 unit SQ Q6H [facility]; Protocol Last Admin: 01/01/24 12:53 Dose: 2 unit Insulin Detemir (Insulin Detemir (Levemir) 100 Unit/Ml Syr) 15 unit SQ BID@0700,2100 [facility] Last Admin: 01/01/24 06:08 Dose: 15 unit Loperamide HCl (Loperamide 2 Mg Cap) 4 mg PO QID@08,12,16,20 [facility] Last Admin: 01/01/24 12:28 Dose: Not Given Metoprolol Tartrate (Metoprolol Tartrate 12.5 Mg Tab) 12.5 mg PO BID@0900,2100 [facility] Last Admin: 01/01/24 08:38 Dose: Not Given Miscellaneous Information (Vancomycin Trough Due 1 Each Misc) 0 each MISCELLANE DIRECTED ONE Stop: 01/03/24 07:01 Naloxone HCl (Naloxone 0.4 Mg/Ml 1 Ml Vial) 0.2 mg IV Q2M PRN PRN Reason: Opioid Reversal Ondansetron HCl (Ondansetron 4 Mg/2 Ml Vial) 4 mg IVP Q8HR PRN PRN Reason: Nausea And Vomiting Last Admin: 12/30/23 08:06 Dose: 4 mg Pantoprazole Sodium (Pantoprazole 40 Mg/10 Ml Vial) 40 mg IVP BID [facility] Last Admin: 01/01/24 08:37 Dose: 40 mg Sodium Chloride (Sodium Chloride 0.9% Flush 10 Ml Syringe) 10 ml IV DAILY PRN PRN Reason: picc line flush Sodium Chloride (Sodium Chloride 0.65% Nasal [place] 44 Ml Btl) 2 spray NASAL QID PRN PRN Reason: Dry Nasal Passages Last Admin: 12/28/23 18:05 Dose: 2 spray Trazodone HCl (Trazodone Hcl 50 Mg Tab) 50 mg PO HS PRN PRN Reason: sleep Last Admin: 12/31/23 21:24 Dose: 50 mg Vitamin A (Vitamin A 10,000 Unit (3000 Mcg) Capsule) 10,000 unit PO DAILY@0900 [facility] Last Admin: 01/01/24 08:38 Dose: Not Given PHYSICAL EXAMINATION: GENERAL: The patient is alert and oriented x 0, intubated and maintained on sedation, ill looking, elderly appearing, obese. FiO2 is 50% with a PEEP of 8 HEENT: Pupils are round and equally reacting to light. EOMI. No scleral icterus. No conjunctival pallor. Normocephalic, atraumatic. No pharyngeal erythema. No thyromegaly. CARDIOVASCULAR: S1 and S2 muffled PULMONARY: Diminished breath sound the bases bilaterally with coarse rhonchi and a few scattered crackles ABDOMEN: Soft, nontender, nondistended,. Ostomy seen with brown stool, loose MUSCULOSKELETAL: No joint swelling or deformity. Right BKA EXTREMITIES: No cyanosis, clubbing, or pedal edema. NEUROLOGICAL: Gross neurological examination did not reveal any focal deficits. Could not completely assess as patient is on propofol for sedation SKIN: No rashes. Pale Assessment: Hypotension with hypotensive shock requiring pressor support likely secondary to acute GI bleed and hypovolemia Acute GI bleed from the ostomy secondary to an abdominal wall extravasation near the ostomy requiring sutures and cauterization 12/30/2023 Acute blood loss anemia secondary to above acute kidney injury secondary to hypotension History of DVT Acute on chronic hypoxic respiratory failure requiring Airvo, status post bronchoscopy today 12/31/2023, with worsening respiratory distress requiring mechanical ventilation overnight 01/01/2024 Leukocytosis, trending down, was started on Vanco and Zosyn Moderate protein calorie malnutrition maintained on TPN Hyperkalemia, improved status post Lokelma Hyponatremia history of Crohn disease complicated with bowel perforation requiring ileostomy, also has 2 fistula in his anterior abdominal Wall, patient also has left upper chest portal to receive 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 Patient continues on low-dose pressor support as well as vasopressin General Surgery following status post abdominal washout of the ostomy area and sutures placed with cauterization as there was an area that was bleeding near the ostomy. Will obtain C. difficile to rule out TPN has been resumed and tolerating Monitor H&H every 6 and transfuse if 7 or less. Patient has required 2 units of PRBC since admission. No further bleeding noted and hemoglobin remains at 7.8 today, possible component of some dilution as well as patient received 2 to 3 L IV fluids Blood sugars have been mildly elevated and recommend to monitor Accu-Cheks before meals and at bedtime and will continue sliding scale and add long-acting and adjust accordingly Patient requiring increased oxygen demands while on Airvo and became more obtunded and confused and unresponsive requiring mechanical ventilation and intubation FiO2 is 50% with a PEEP of 8 Patient being monitored closely on IV fluids and diuretics have been held. Will follow-up on repeat labs and monitor electrolytes closely. Potassium, phosphorus, magnesium low and being replaced per protocol Case management/social work following and patient will require outpatient TPN supplies and follow-up with primary care provider. Recommending dietary and pharmacy to adjust TPN Due to multiple complex medical issues, overall prognosis is extremely guarded The impression and plan of care has been dictated by Alyssa Hernandez, Nurse Practitioner as directed. Dr. Gerry MD I have performed a history and examination and MDM of this patient, discussed the same with the dictator, and agree with the dictator's assessment and plan as written ,documented as a scribe. Based on total visit time, I have performed more than 50% of the visit. Kavin campbell pager idiot Objective - Vital Signs Vital signs: Vital Signs Temp 100.3 F H 01/01/24 08:00 Pulse 98 01/01/24 09:15 Resp 26 H 01/01/24 09:15 BP 114/50 01/01/24 09:00 Pulse Ox 100 01/01/24 09:15 FiO2 50 01/01/24 09:40 Intake & Output 12/31/23 01/01/24 01/01/24 18:59 06:59 18:59 Intake Total 3591.230 4356.493 1052.971 Output Total 860 1530 550 Balance 2731.230 2826.493 502.971 Weight 96 kg Intake: IV 2000 825 225 Fat Emulsion 20% 250 ml 21 In Empty Bag 1 bag @ 21 mls/hr IV [id number] [facility] Rx#:[id number] Mvi, Adult No.4 with Vit 1080 K 10 ml Trace (Conc-1Ml/ Dose) 1 ml Sodium Chloride 4Meq/ml Vial 40 meq Calcium Gluconate 1 gm Sodium Acetate 40 meq In Amino Acid 5%-D15w 1, 000 ml @ 120 mls/hr IV . BY DURATION ANNIE Rx#: [id number] Sodium Chloride 0.9% 1, 900 825 225 000 ml @ 75 mls/hr IV . [id number] [facility] Rx#:[id number] Intake, IV Titration 8161.184 9779.493 827.971 Amount Norepinephrine 32 mg In 137.047 Sodium Chloride 0.9% 218 ml @ 0.03 MCG/KG/MIN 1. 333 mls/hr IV .Q24H ANNIE Rx#:[id number] Norepinephrine 4 mg In 230.230 339.167 Sodium Chloride 0.9% 250 ml @ 0.03 MCG/KG/MIN 10. 888 mls/hr IV .[id number] [facility] Rx#:[id number] Piperacillin-Tazobactam 3 100 100 .375 gm In Sodium Chloride 0.9% 100 ml @ 25 mls/hr IVPB Q8HR [facility]IE Rx# :[id number] Sodium Chloride 0.9% 2, 1000 1000 000 ml @ 999 mls/hr IV . Q2H1M [facility] Rx#:[id number] Sodium Chloride 4Meq/ml 360 1529 Vial 30 meq Calcium Gluconate 1 gm Sodium Acetate 60 meq Sodium Phosphate 3 mmol Magnesium Sulfate gm 0.25 gm In Amino Acid 5%-D15w 1,000 ml @ 120 mls/hr IV .BY DURATION [facility] Rx#: [id number] Vancomycin 1,500 mg In 500 Sodium Chloride 0.9% 500 ml 500 ml @ 167 mls/hr IVPB Q12H [facility] Rx#: [id number] Vancomycin 1,750 mg In 500 Sodium Chloride 0.9% 500 ml 500 ml @ 167 mls/hr IVPB ONCE ONE Rx#: [id number] Vasopressin 20 unit In 28.356 Sodium Chloride 0.9% 50 ml @ 0.03 UNITS/MIN 4.59 mls/hr IV .Q11H7M [facility] Rx# :[id number] propofoL 1,000 mg In 63.326 62.568 Empty Bag 1 bag @ 15 MCG/ KG/MIN 8.532 mls/hr IV . [id number] [facility] Rx#:[id number] Output: Urine 860 1130 550 Stool 400 Other: Voiding Method Indwelling Catheter Indwelling Catheter ABP, PAP, CO, CI - Last Documented Arterial Blood Pressure 105/47 - Labs CBC & Chem 7: 01/01/24 10:35 01/01/24 10:35 Labs: Abnormal Lab Results - Last 24 Hours (Table) 12/31/23 12/31/23 12/31/23 Range/Units 12:55 18:35 23:56 WBC (3.8-10.6) k/uL RBC (4.30-5.90) m/uL Hgb (13.0-17.5) gm/dL Hct (39.0-53.0) % MCHC (31.0-37.0) g/dL RDW (11.5-15.5) % ABG pH (7.35-7.45) ABG pCO2 (35-45) mmHg ABG pO2 (83-108) mmHg ABG HCO3 (21-25) mmol/L ABG Total CO2 (19-24) mmol/L ABG O2 Saturation (94-97) % Hemoglobin (13.0-17.5) gm/dL Potassium (3.5-5.1) mmol/L Chloride (98-107) mmol/L BUN (9-20) mg/dL Glucose (74-99) mg/dL POC Glucose (mg/dL) 261 H 207 H 184 H (70-110) mg/dL Calcium (8.4-10.2) mg/dL Total Protein (6.3-8.2) g/dL Albumin (3.5-5.0) g/dL Cortisol (3.1-22.4) UG/DL 01/01/24 01/01/24 01/01/24 Range/Units 00:56 01:42 01:42 WBC 21.9 H (3.8-10.6) k/uL RBC 2.98 L (4.30-5.90) m/uL Hgb 8.5 L D (13.0-17.5) gm/dL Hct 27.5 L (39.0-53.0) % MCHC 30.8 L (31.0-37.0) g/dL RDW 16.4 H (11.5-15.5) % ABG pH (7.35-7.45) ABG pCO2 (35-45) mmHg ABG pO2 (83-108) mmHg ABG HCO3 (21-25) mmol/L ABG Total CO2 (19-24) mmol/L ABG O2 Saturation (94-97) % Hemoglobin (13.0-17.5) gm/dL Potassium 3.2 L (3.5-5.1) mmol/L Chloride 115 H (98-107) mmol/L BUN 105 H* (9-20) mg/dL Glucose 195 H (74-99) mg/dL POC Glucose (mg/dL) (70-110) mg/dL Calcium 8.2 L (8.4-10.2) mg/dL Total Protein 5.3 L (6.3-8.2) g/dL Albumin 2.2 L (3.5-5.0) g/dL Cortisol 25.7 H (3.1-22.4) UG/DL 01/01/24 01/01/24 01/01/24 Range/Units 02:07 04:37 06:03 WBC (3.8-10.6) k/uL RBC (4.30-5.90) m/uL Hgb (13.0-17.5) gm/dL Hct (39.0-53.0) % MCHC (31.0-37.0) g/dL RDW (11.5-15.5) % ABG pH 7.07 L* 7.21 L (7.35-7.45) ABG pCO2 64 H (35-45) mmHg ABG pO2 286 H (83-108) mmHg ABG HCO3 19 L 17 L (21-25) mmol/L ABG Total CO2 18 L (19-24) mmol/L ABG O2 Saturation 99.0 H 98.0 H (94-97) % Hemoglobin 8.9 L (13.0-17.5) gm/dL Potassium (3.5-5.1) mmol/L Chloride (98-107) mmol/L BUN (9-20) mg/dL Glucose (74-99) mg/dL POC Glucose (mg/dL) 273 H (70-110) mg/dL Calcium (8.4-10.2) mg/dL Total Protein (6.3-8.2) g/dL Albumin (3.5-5.0) g/dL Cortisol (3.1-22.4) UG/DL
--- NOTE | 2024-01-01 13:47 | P.PN ---
Subjective Progress Note Date: 01/01/24 CHIEF COMPLAINT: Debility and issues with TPN supplies HISTORY OF PRESENT ILLNESS: Patient remains in the ICU. Patient had to be intubated early this morning for acute respiratory failure. He is on both Levophed and vasopressin for blood pressure support. He did receive about 3 L of fluid yesterday for his hypotension. Patient has had no further bleeding from his ileostomy. Patient had about 400 mL of liquidy brown stool from his ileostomy. Patient having low-grade temps to 100.3. WBC is up from 15.1-17.1. Hemoglobin did drop from 10.5 yesterday to 8.5-7.8. Platelets 325. Creatinine 0.90 potassium 2.7 and magnesium 1.5. Both magnesium and potassium are being replaced. PHYSICAL EXAM: VITAL SIGNS: Reviewed. GENERAL: Well-developed in no acute distress. ABDOMEN: Soft. Nondistended. Ileostomy with brown liquidy stools. No further bleeding. NEUROLOGIC: Alert and oriented. Cranial nerves II through XII grossly intact. ASSESSMENT: 1. Acute GI bleed at the ileostomy site status post suture and cauterization of bleeding vessel by surgeon 2. History of Crohn's with bowel perforation requiring ileostomy. 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 Signing provider agrees with the documented findings, assessment, and plan of care. Objective - Vital Signs Vital signs: Vital Signs Temp 100.3 F H 01/01/24 08:00 Pulse 98 01/01/24 11:48 Resp 26 H 01/01/24 10:15 BP 115/50 01/01/24 10:00 Pulse Ox 100 01/01/24 10:15 FiO2 50 01/01/24 11:35 Intake & Output 12/31/23 01/01/24 01/01/24 18:59 06:59 18:59 Intake Total 3591.230 4356.493 2673.706 Output Total 860 1530 1550 Balance 2731.230 2826.493 1123.706 Weight 96 kg 96 kg Intake: IV 2000 825 450 Fat Emulsion 20% 250 ml 21 In Empty Bag 1 bag @ 21 mls/hr IV [id number] [facility] Rx#:[id number] Mvi, Adult No.4 with Vit 1080 K 10 ml Trace (Conc-1Ml/ Dose) 1 ml Sodium Chloride 4Meq/ml Vial 40 meq Calcium Gluconate 1 gm Sodium Acetate 40 meq In Amino Acid 5%-D15w 1, 000 ml @ 120 mls/hr IV . BY DURATION [facility] Rx#: [id number] Sodium Chloride 0.9% 1, 900 825 450 000 ml @ 75 mls/hr IV . [id number] [facility] Rx#:[id number] Intake, IV Titration 5649.208 0722.493 2223.706 Amount Anidulafungin 200 mg In 200 Sodium Chloride 0.9% 200 ml @ 84 mls/hr IVPB ONCE [facility] Rx#:[id number] Magnesium Sulfate-D5w Pmx 100 1 gm In Dextrose/Water 1 100ml.bag @ 100 mls/hr IVPB Q1H [facility] Rx#: [id number] Mvi, Adult No.4 with Vit 55 K 10 ml Trace (Conc-1Ml/ Dose) 1 ml Sodium Chloride 4Meq/ml Vial 50 meq Sodium Acetate 50 meq Calcium Gluconate 1 gm Magnesium Sulfate gm 1 gm Potassium Phosphate 15 mmol In Amino Acid 5%- D15w 1,000 ml @ 55 mls/hr IV .[id number] [facility] Rx#: [id number] Norepinephrine 32 mg In 177.782 Sodium Chloride 0.9% 218 ml @ 0.03 MCG/KG/MIN 1. 333 mls/hr IV .Q24H [facility] Rx#:[id number] Norepinephrine 4 mg In 230.230 339.167 Sodium Chloride 0.9% 250 ml @ 0.03 MCG/KG/MIN 10. 888 mls/hr IV .[id number] [facility] Rx#:[id number] Piperacillin-Tazobactam 3 100 100 .375 gm In Sodium Chloride 0.9% 100 ml @ 25 mls/hr IVPB Q8HR [facility] Rx# :[id number] Sodium Chloride 0.9% 1, 1000 000 ml @ 999 mls/hr IV . Q1H1M [facility] Rx#:[id number] Sodium Chloride 0.9% 2, 1000 1000 000 ml @ 999 mls/hr IV . Q2H1M [facility] Rx#:[id number] Sodium Chloride 4Meq/ml 360 1529 Vial 30 meq Calcium Gluconate 1 gm Sodium Acetate 60 meq Sodium Phosphate 3 mmol Magnesium Sulfate gm 0.25 gm In Amino Acid 5%-D15w 1,000 ml @ 55 mls/hr IV .BY DURATION [facility] Rx#: [id number] Vancomycin 1,500 mg In 500 Sodium Chloride 0.9% 500 ml 500 ml @ 167 mls/hr IVPB Q12H [facility] Rx#: [id number] Vancomycin 1,750 mg In 500 Sodium Chloride 0.9% 500 ml 500 ml @ 167 mls/hr IVPB ONCE [facility] Rx#: [id number] Vasopressin 20 unit In 28.356 Sodium Chloride 0.9% 50 ml @ 0.03 UNITS/MIN 4.59 mls/hr IV .[id number] [facility] Rx# :[id number] propofoL 1,000 mg In 63.326 62.568 Empty Bag 1 bag @ 15 MCG/ KG/MIN 8.532 mls/hr IV . [id number] [facility] Rx#:[id number] Output: Urine 860 1130 1550 Stool 400 Other: Voiding Method Indwelling Catheter Indwelling Catheter ABP, PAP, CO, CI - Last Documented Arterial Blood Pressure 116/52 - Labs CBC & Chem 7: 01/01/24 10:35 01/01/24 10:35 Labs: Abnormal Lab Results - Last 24 Hours (Table) 12/31/23 12/31/23 12/31/23 Range/Units 12:55 18:35 23:56 WBC (3.8-10.6) k/uL RBC (4.30-5.90) m/uL Hgb (13.0-17.5) gm/dL Hct (39.0-53.0) % MCHC (31.0-37.0) g/dL RDW (11.5-15.5) % Neutrophils # (1.3-7.7) k/uL Lymphocytes # (1.0-4.8) k/uL ABG pH (7.35-7.45) ABG pCO2 (35-45) mmHg ABG pO2 (83-108) mmHg ABG HCO3 (21-25) mmol/L ABG Total CO2 (19-24) mmol/L ABG O2 Saturation (94-97) % Hemoglobin (13.0-17.5) gm/dL Potassium (3.5-5.1) mmol/L Chloride (98-107) mmol/L Carbon Dioxide (22-30) mmol/L BUN (9-20) mg/dL Glucose (74-99) mg/dL POC Glucose (mg/dL) 261 H 207 H 184 H (70-110) mg/dL Calcium (8.4-10.2) mg/dL Phosphorus (2.5-4.5) mg/dL Magnesium (1.6-2.3) mg/dL Total Protein (6.3-8.2) g/dL Albumin (3.5-5.0) g/dL Cortisol (3.1-22.4) UG/DL 01/01/24 01/01/24 01/01/24 Range/Units 00:56 01:42 01:42 WBC 21.9 H (3.8-10.6) k/uL RBC 2.98 L (4.30-5.90) m/uL Hgb 8.5 L D (13.0-17.5) gm/dL Hct 27.5 L (39.0-53.0) % MCHC 30.8 L (31.0-37.0) g/dL RDW 16.4 H (11.5-15.5) % Neutrophils # (1.3-7.7) k/uL Lymphocytes # (1.0-4.8) k/uL ABG pH (7.35-7.45) ABG pCO2 (35-45) mmHg ABG pO2 (83-108) mmHg ABG HCO3 (21-25) mmol/L ABG Total CO2 (19-24) mmol/L ABG O2 Saturation (94-97) % Hemoglobin (13.0-17.5) gm/dL Potassium 3.2 L (3.5-5.1) mmol/L Chloride 115 H (98-107) mmol/L Carbon Dioxide (22-30) mmol/L BUN 105 H* (9-20) mg/dL Glucose 195 H (74-99) mg/dL POC Glucose (mg/dL) (70-110) mg/dL Calcium 8.2 L (8.4-10.2) mg/dL Phosphorus (2.5-4.5) mg/dL Magnesium (1.6-2.3) mg/dL Total Protein 5.3 L (6.3-8.2) g/dL Albumin 2.2 L (3.5-5.0) g/dL Cortisol 25.7 H (3.1-22.4) UG/DL 01/01/24 01/01/24 01/01/24 Range/Units 02:07 04:37 06:03 WBC (3.8-10.6) k/uL RBC (4.30-5.90) m/uL Hgb (13.0-17.5) gm/dL Hct (39.0-53.0) % MCHC (31.0-37.0) g/dL RDW (11.5-15.5) % Neutrophils # (1.3-7.7) k/uL Lymphocytes # (1.0-4.8) k/uL ABG pH 7.07 L* 7.21 L (7.35-7.45) ABG pCO2 64 H (35-45) mmHg ABG pO2 286 H (83-108) mmHg ABG HCO3 19 L 17 L (21-25) mmol/L ABG Total CO2 18 L (19-24) mmol/L ABG O2 Saturation 99.0 H 98.0 H (94-97) % Hemoglobin 8.9 L (13.0-17.5) gm/dL Potassium (3.5-5.1) mmol/L Chloride (98-107) mmol/L Carbon Dioxide (22-30) mmol/L BUN (9-20) mg/dL Glucose (74-99) mg/dL POC Glucose (mg/dL) 273 H (70-110) mg/dL Calcium (8.4-10.2) mg/dL Phosphorus (2.5-4.5) mg/dL Magnesium (1.6-2.3) mg/dL Total Protein (6.3-8.2) g/dL Albumin (3.5-5.0) g/dL Cortisol (3.1-22.4) UG/DL 01/01/24 01/01/24 01/01/24 Range/Units 10:35 10:35 11:47 WBC 17.1 H (3.8-10.6) k/uL RBC 2.79 L (4.30-5.90) m/uL Hgb 7.8 L (13.0-17.5) gm/dL Hct 25.5 L (39.0-53.0) % MCHC 30.7 L (31.0-37.0) g/dL RDW 16.6 H (11.5-15.5) % Neutrophils # 15.2 H (1.3-7.7) k/uL Lymphocytes # 0.9 L (1.0-4.8) k/uL ABG pH (7.35-7.45) ABG pCO2 (35-45) mmHg ABG pO2 (83-108) mmHg ABG HCO3 (21-25) mmol/L ABG Total CO2 (19-24) mmol/L ABG O2 Saturation (94-97) % Hemoglobin (13.0-17.5) gm/dL Potassium 2.7 L* (3.5-5.1) mmol/L Chloride 115 H (98-107) mmol/L Carbon Dioxide 21 L (22-30) mmol/L BUN 82 H (9-20) mg/dL Glucose 186 H (74-99) mg/dL POC Glucose (mg/dL) 165 H (70-110) mg/dL Calcium 8.2 L (8.4-10.2) mg/dL Phosphorus 0.9 L* (2.5-4.5) mg/dL Magnesium 1.5 L (1.6-2.3) mg/dL Total Protein (6.3-8.2) g/dL Albumin (3.5-5.0) g/dL Cortisol (3.1-22.4) UG/DL Assessment and Plan Assessment: no active bleeding, continue diet monitor bowel function no further intervention at this time Time with Patient: Less than 30
--- NOTE | 2024-01-01 14:37 | P.PN ---
Subjective Progress Note Date: 01/01/24 Patient is a 48-year-old male with complex past medical history including CVA, previous DVTs, right BKA, cardiac arrest in 2021, Crohn's disease, enterocutaneous fistulas, previous bowel resection. More recently, patient was admitted 12/13/2023 through 12/25/2023 for pneumonia and respiratory failure due to mucous plugging. He was intubated and placed on mechanical ventilator for approximately 6 days. He did have a bronchoscopy with BAL, microbiology positive for haemophilus influenza. Completed his antibiotics. Was discharged home. Unable to get supplies/TPN on discharge, and returned back to the emergency department on 12/26/2023. He was admitted, and while on the general medical floor. Noted to have some bleeding from his ostomy per the RN. This progressively became more copious, is currently dark red with clots. Previously on therapeutic dose of Lovenox, and this has been stopped. Dr. Munoz is aware of this patient, and he did receive 2 L fluid bolus earlier in the day yesterday. Patient is now hypotensive and symptomatic. 2 units of PRBCs are pending. General surgery is consulted and aware. Hemoglobin has dropped from 13.7 on admission, and is currently 9.8 g/dL. Abdominal and pelvis CT showing several areas of active extravasation noted on early arterial phase imaging within the superficial post operative ventral abdominal wall. Indeterminate whether this area of bleeding lies within a conglomeration of superficial bowel loop or is within the postoperative abdominal wall. No evidence of bowel obstruction. Also, dense bibasilar consolidations noted in the lower lobes. Remainder of patient's CBC includes a WBC count 9.1, hemoglobin 9.8, hematocrit 31.6, plat elets 361. Coags include a PT of 11.2, INR of 1, PTT of 28.4. Most recent BMP: Sodium 126, potassium 6.1, chloride 102, serum bicarb 17, BUN 102, creatinine 1, glucose 203. Hyperkalemia was treated with Lokelma, and is currently down to 5.8 g/dL. Patient is currently being evaluated in the intensive care unit. He is resting comfortably on room air. Alert and oriented x 3. Cold and diaphoretic. Blood pressure hypotensive, despite receiving an additional 1 L fluid bolus. Patient is going to be started on norepinephrine until blood products become available. Continues to have large volume dark blood with blood clots. No nausea or vomiting or hematemesis. No abdominal pain. General surgery currently evaluating patient, and recommendations to follow. On 12/31/2023, the patient is is being seen for a follow-up. No evidence of any bleeding from the abdominal wall. Nevertheless, the patient has a very weak congested cough unable to bring up much sputum. Initially was on 5 L of oxygen by nasal cannula and later on during the day he decompensated and currently is on Airvo in addition to 100% nonrebreather facemask. Obviously, the patient is having upper respiratory secretions and the patient will need a bronchoscopy. Chest x-ray showing smaller lung volumes. No evidence of any acute pulmonary filtration. The patient remains on normal citrate of 75 cc an hour. The patient is on TPN at a rate of 120 cc an hour. Norepinephrine is running at 0.06 mcg/kg/min. He is lethargic and arousable and able to communicate. Family is at the bedside. The white cell count is 15 with a hemoglobin 10.2 and a platelet count of 309. BUN is 105 with a creatinine of 1.04 and a sodium level is at 132 and a potassium level of 4.3 and a bicarb of 17. The patient is on TPN for nutritional support. On 01/01/2024, patient is being seen for a follow-up. Overnight, the patient went into respiratory failure and his blood gas showed severe respiratory acidosis. Noted the patient had extensive mucous plugging and required bronchoscopy yesterday with removal of approximately 30 cc of vascular secretions were essentially purulent. Post bronchoscopy, the patient became hypotensive and sepsis was suspected and the patient accordingly was placed on a combination of Zosyn and vancomycin. Cultures are still pending. Eraxis was also added to broaden antibiotic coverage. The patient this morning is on normal saline at rate of 75 cc an hour. Received a total of 3 L of IV fluid yes terday. Norepinephrine is running at 0.45 mcg/kg/min and the patient is also on vasopressin physiologic dose anteriorly and TPN running at 120 cc an hour. He is currently on assist-control mode of mechanical ventilation. He is sedated with propofol at rate of 40 mcg/kg/min. He is on a tidal volume of 450, rate of 26, FiO2 100% and a PEEP of 5. Blood gas showed a pH of 7.21 with a pCO2 of 42 and pO2 of 88. Chest x-ray shows atelectatic changes in lung bases bilaterally. Phosphorus level was 0.9. Magnesium level is at 1.9. Those need to be replaced. BUN is 82 with a creatinine of 0.9 and sodium levels at 142 with a potassium level of 2.7. WBC count 17.1 with a hemoglobin of 7.8 and a platelet count of 325. Objective - Vital Signs Vital signs: Vital Signs Temp 100.3 F H 01/01/24 08:00 Pulse 98 01/01/24 09:15 Resp 26 H 01/01/24 09:15 BP 114/50 01/01/24 09:00 Pulse Ox 100 01/01/24 09:15 FiO2 50 01/01/24 08:34 Intake & Output 12/31/23 01/01/24 01/01/24 18:59 06:59 18:59 Intake Total 3591.230 4356.493 1052.971 Output Total 860 1530 550 Balance 2731.230 2826.493 502.971 Weight 96 kg Intake: IV 2000 825 225 Fat Emulsion 20% 250 ml 21 In Empty Bag 1 bag @ 21 mls/hr IV [id number]@1800 [facility] Rx#:[id number] Mvi, Adult No.4 with Vit 1080 K 10 ml Trace (Conc-1Ml/ Dose) 1 ml Sodium Chloride 4Meq/ml Vial 40 meq Calcium Gluconate 1 gm Sodium Acetate 40 meq In Amino Acid 5%-D15w 1, 000 ml @ 120 mls/hr IV . BY DURATION [facility] Rx#: [id number] Sodium Chloride 0.9% 1, 900 825 225 000 ml @ 75 mls/hr IV . [id number] [facility] Rx#:[id number] Intake, IV Titration 8003.966 1523.493 827.971 Amount Norepinephrine 32 mg In 137.047 Sodium Chloride 0.9% 218 ml @ 0.03 MCG/KG/MIN 1. 333 mls/hr IV .Q24H [facility] Rx#:[id number] Norepinephrine 4 mg In 230.230 339.167 Sodium Chloride 0.9% 250 ml @ 0.03 MCG/KG/MIN 10. 888 mls/hr IV .[id number] [facility] Rx#:[id number] Piperacillin-Tazobactam 3 100 100 .375 gm In Sodium Chloride 0.9% 100 ml @ 25 mls/hr IVPB Q8HR [facility] Rx# :[id number] Sodium Chloride 0.9% 2, 1000 1000 000 ml @ 999 mls/hr IV . Q2H1M [facility] Rx#:[id number] Sodium Chloride 4Meq/ml 360 1529 Vial 30 meq Calcium Gluconate 1 gm Sodium Acetate 60 meq Sodium Phosphate 3 mmol Magnesium Sulfate gm 0.25 gm In Amino Acid 5%-D15w 1,000 ml @ 120 mls/hr IV .BY DURATION [facility] Rx#: [id number] Vancomycin 1,500 mg In 500 Sodium Chloride 0.9% 500 ml 500 ml @ 167 mls/hr IVPB Q12H [facility] Rx#: [id number] Vancomycin 1,750 mg In 500 Sodium Chloride 0.9% 500 ml 500 ml @ 167 mls/hr IVPB ONCE [facility] Rx#: [id number] Vasopressin 20 unit In 28.356 Sodium Chloride 0.9% 50 ml @ 0.03 UNITS/MIN 4.59 mls/hr IV .[id number] [facility] Rx# :[id number] propofoL 1,000 mg In 63.326 62.568 Empty Bag 1 bag @ 15 MCG/ KG/MIN 8.532 mls/hr IV . [id number] [facility] Rx#:[id number] Output: Urine 860 1130 550 Stool 400 Other: Voiding Method Indwelling Catheter Indwelling Catheter ABP, PAP, CO, CI - Last Documented Arterial Blood Pressure 105/47 - Exam GENERAL EXAM: 48-year-old male, sedated on propofol, intubated on the mechanical ventilator currently on assist-control mode of mechanical ventilation. HEAD: Normocephalic and atraumatic EYES: Normal reaction of pupils, equal size. NOSE: Clear with pink turbinates. THROAT: No erythema or exudates. NECK: No masses, no JVD. CHEST: No chest wall deformity. Left subclavian double-lumen central line LUNGS: Equal air entry with no crackles, wheeze, rhonchi or dullness. On room air. No conversational dyspnea or accessory muscle use.. CVS: S1 and S2 normal with no audible murmur, regular rhythm. No extra heart sounds ABDOMEN: Ileostomy with brown stool, no evidence of any bleeding.. Bowel sounds present. Abdomen is soft and nontender. No organomegaly. SPINE: No scoliosis or deformity SKIN: No rashes CENTRAL NERVOUS SYSTEM: Sedated on propofol. EXTREMITIES: Right BKA, left leg weakness and left foot drop, remaining distal pulses are weak and only found with Doppler. Extremities are cool with distal cyanosis - Labs CBC & Chem 7: 01/01/24 10:35 01/01/24 10:35 Labs: Abnormal Lab Results - Last 24 Hours (Table) 12/31/23 12/31/23 12/31/23 Range/Units 12:55 18:35 23:56 WBC (3.8-10.6) k/uL RBC (4.30-5.90) m/uL Hgb (13.0-17.5) gm/dL Hct (39.0-53.0) % MCHC (31.0-37.0) g/dL RDW (11.5-15.5) % ABG pH (7.35-7.45) ABG pCO2 (35-45) mmHg ABG pO2 (83-108) mmHg ABG HCO3 (21-25) mmol/L ABG Total CO2 (19-24) mmol/L ABG O2 Saturation (94-97) % Hemoglobin (13.0-17.5) gm/dL Potassium (3.5-5.1) mmol/L Chloride (98-107) mmol/L BUN (9-20) mg/dL Glucose (74-99) mg/dL POC Glucose (mg/dL) 261 H 207 H 184 H (70-110) mg/dL Calcium (8.4-10.2) mg/dL Total Protein (6.3-8.2) g/dL Albumin (3.5-5.0) g/dL Cortisol (3.1-22.4) UG/DL 01/01/24 01/01/24 01/01/24 Range/Units 00:56 01:42 01:42 WBC 21.9 H (3.8-10.6) k/uL RBC 2.98 L (4.30-5.90) m/uL Hgb 8.5 L D (13.0-17.5) gm/dL Hct 27.5 L (39.0-53.0) % MCHC 30.8 L (31.0-37.0) g/dL RDW 16.4 H (11.5-15.5) % ABG pH (7.35-7.45) ABG pCO2 (35-45) mmHg ABG pO2 (83-108) mmHg ABG HCO3 (21-25) mmol/L ABG Total CO2 (19-24) mmol/L ABG O2 Saturation (94-97) % Hemoglobin (13.0-17.5) gm/dL Potassium 3.2 L (3.5-5.1) mmol/L Chloride 115 H (98-107) mmol/L BUN 105 H* (9-20) mg/dL Glucose 195 H (74-99) mg/dL POC Glucose (mg/dL) (70-110) mg/dL Calcium 8.2 L (8.4-10.2) mg/dL Total Protein 5.3 L (6.3-8.2) g/dL Albumin 2.2 L (3.5-5.0) g/dL Cortisol 25.7 H (3.1-22.4) UG/DL 01/01/24 01/01/24 01/01/24 Range/Units 02:07 04:37 06:03 WBC (3.8-10.6) k/uL RBC (4.30-5.90) m/uL Hgb (13.0-17.5) gm/dL Hct (39.0-53.0) % MCHC (31.0-37.0) g/dL RDW (11.5-15.5) % ABG pH 7.07 L* 7.21 L (7.35-7.45) ABG pCO2 64 H (35-45) mmHg ABG pO2 286 H (83-108) mmHg ABG HCO3 19 L 17 L (21-25) mmol/L ABG Total CO2 18 L (19-24) mmol/L ABG O2 Saturation 99.0 H 98.0 H (94-97) % Hemoglobin 8.9 L (13.0-17.5) gm/dL Potassium (3.5-5.1) mmol/L Chloride (98-107) mmol/L BUN (9-20) mg/dL Glucose (74-99) mg/dL POC Glucose (mg/dL) 273 H (70-110) mg/dL Calcium (8.4-10.2) mg/dL Total Protein (6.3-8.2) g/dL Albumin (3.5-5.0) g/dL Cortisol (3.1-22.4) UG/DL Assessment and Plan Assessment: Abdominal wall versus GI bleeding. The patient encountered acute GI bleeding vs bleeding from the abdominal wall, Abdominal and pelvis CT showing several areas of active extravasation noted on early arterial phase imaging within the superficial post operative ventral abdominal wall. Indeterminate whether this area of bleeding lies within a conglomeration of superficial bowel loop or is within the postoperative abdominal wall. No evidence of bowel obstruction. Also, dense bibasilar consolidations noted in the lower lobes. No active bleeding over the past 48 hours and hemoglobin remained stable. . Acute blood loss anemia, secondary to above, 2 units PRBCs transfused and the patient is currently running a stable hemoglobin Acute hypoxic respiratory failure, likely secondary to upper respiratory tract secretions. The patient copious amounts of mucous plugs was underwent bronchoscopy and aspirated from both lungs and a bronchial lavage was also done. Cultures are still pending for now. Overnight, the patient developed severe respiratory acidosis requiring intubation mechanical ventilation. 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 The patient has been aggressive resuscitative IV fluids and the patient is currently on high-dose norepinephrine and vasopressin physiologic dose. Electrolyte imbalance with hypomagnesium [place], hypophosphatemia and hypokalemia. Prerenal azotemia Recent history of ventilator dependent respiratory failure, secondary to pneumonia, microbiology from BAL positive for haemophilus influenzae History of DVT, previously on therapeutic dose of Lovenox, which is currently stopped History of Crohn's disease complicated by bowel perforation status post colectomy and diverting ileostomy. 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 Currently receiving TPN for nutritional support. 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 cardiac asystole/arrest in 2021 History of tracheostomy and reversal Plan: Continue ventilator support, no changes Keep the patient on propofol Give the patient another liter of normal saline Continue fluid resuscitation with normal saline at rate of 75 cc an hour Antibiotic coverage with a combination of Zosyn and vancomycin and Eraxis Blood cultures Check procalcitonin level Monitor hemoglobin Monitor hemodynamics and wean off pressors Continue TPN for nutritional support Monitor hemoglobin Lovenox 40 mg subcu for DVT prophylaxis Protonix twice daily Will continue to monitor and follow-up this patient will do the rest of the consultants. Further recommendations are to follow. This evaluation was done and more than 30 minutes. This is working progress. Time with Patient: Greater than 30
[2024-01-01 17:46] LABS: Glucose,Whole Blood 160 mg/dL (70-110)
[2024-01-01 21:01] LABS: Glucose,Whole Blood 134 mg/dL (70-110)
[2024-01-01 23:35] LABS: Glucose,Whole Blood 149 mg/dL (70-110)
[2024-01-01 23:59] LABS: Magnesium 1.8 mg/dL (1.6-2.3); Potassium 2.9 mmol/L (3.5-5.1)
[2024-01-02] MEDS: POTASSIUM PHOSPHATE 10 MMOL in SODIUM CHLORIDE 0.9% 100 ML IV ONE (02:39)
[2024-01-02] MEDS: MAGNESIUM SULFATE-D5W PMX 1 GM in DEXTROSE/WATER 1 100ML.BAG IVPB ONE (02:40)
[2024-01-02 05:01] LABS: Anisocytosis Slight; Basophils % (A) 0 %; Eosinophils # (A) 0.1 k/uL (0-0.7); Eosinophils % (A) 1 %; HCT 25.4 % (39.0-53.0); HGB 8.1 gm/dL (13.0-17.5); Hypochromasia Moderate; Lymphocytes # (A) 1.7 k/uL (1.0-4.8); Lymphocytes % (A) 16 %; MCH 28.1 pg (25.0-35.0); MCV 87.7 fL (80.0-100.0); Mean Platelet Volume 10.7; Monocytes # (A) 0.4 k/uL (0-1.0); Monocytes % (A) 4 %; Neutrophils # (A) 8.3 k/uL (1.3-7.7); Neutrophils % (A) 77 %; Platelet Count 287 k/uL (150-450); Poikilocytosis Slight; RDW 17.2 % (11.5-15.5); WBC 10.7 k/uL (3.8-10.6)
[2024-01-02 05:06] LABS: ABG HCO3 23 mmol/L (21-25); ABG Oxygen Saturation 99.6 % (94-97); ABG PCO2 33 mmHg (35-45); ABG PH 7.44 (7.35-7.45); ABG PO2 117 mmHg (83-108); ABG TCO2 24 mmol/L (19-24)
[2024-01-02 05:11] LABS: African American GFR (CKD) >90 (>60 ml/min/1.73 sqM); Anion Gap 3 mmol/L; Blood Urea Nitrogen 43 mg/dL (9-20); Calcium 8.4 mg/dL (8.4-10.2); Carbon Dioxide 22 mmol/L (22-30); Chloride 117 mmol/L (98-107); Glucose 147 mg/dL (74-99); Magnesium 1.7 mg/dL (1.6-2.3); Non-African American GFR(CKD) >90 (>60 ml/min/1.73 sqM); Phosphorus 2.3 mg/dL (2.5-4.5); Sodium 142 mmol/L (137-145)
[2024-01-02 05:31] LABS: Potassium 2.6 mmol/L (3.5-5.1)
[2024-01-02] MEDS: POTASSIUM BICARBONATE/CIT AC 20 MEQ TABLET.EFF NG-TUBE SCH ×4 (05:38→20:53)
[2024-01-02 05:46] LABS: Glucose,Whole Blood 157 mg/dL (70-110)
[2024-01-02] MEDS: MVI, ADULT NO.4 WITH VIT K 10 ML, TRACE (CONC-1ML/DOSE) 1 ML, SODIUM CHLORIDE 4MEQ/ML V... IV SCH (06:15)
[2024-01-02] MEDS ORDERED: POTASSIUM CHLORIDE 20 MEQ in WATER FOR INJECTION 1 100ML.BAG IVPB SCH (07:00)
[2024-01-02] MEDS: POTASSIUM CHLORIDE IVPB SCH (07:14)
[2024-01-02] MEDS: WATER FOR INJECTION IVPB SCH (07:14)
--- NOTE | 2024-01-02 07:53 | XR ---
EXAMINATION TYPE: XR chest 1V portable DATE OF EXAM: 01/02/2024 5:11 AM CLINICAL INDICATION: Male, 48 years old with history of Tube placement; [facility] COMPARISON: Chest radiograph from one day prior. TECHNIQUE: XR chest 1V portable Frontal view of the chest. FINDINGS: Lungs/Pleura: Right midlung airspace opacities are more prominent on today's exam. Left basilar airsp wayne opacities. There is no evidence of pleural effusion, or pneumothorax. Pulmonary vascularity: Unremarkable. Heart/mediastinum: Cardiomediastinal silhouette is unremarkable. Musculoskeletal: No acute osseous pathology. Other findings: None Lines/Tubes: Endotracheal tube with distal tip 3.9 cm above the avery. Nasogastric tube with its distal tip and side-port projecting under the diaphragm. [id number] projecting over the left hemithorax with distal tip at the cavoatrial junction. IMPRESSION: Similar, left basilar atelectasis and/or airspace disease and right midlung airspace opacities possib ly due to patient positioning. Attention on follow-up imaging.. [facility], , 01/02/2024 7:51 AM
[2024-01-02] MEDS: ANIDULAFUNGIN 100 MG in SODIUM CHLORIDE 0.9% 100 ML IVPB SCH (08:18)
--- NOTE | 2024-01-02 09:34 | P.CONS ---
History of Present Illness - Reason for Consult Consult date: 01/01/24 Leukocytosis Requesting physician: Alyssa Hernandez - Chief Complaint Shortness of breath weakness x days - History of Present Illness Patient is a 48-year-old male with a past medical history difficult for CVA TIA DVT did have a history of Crohn's disease with bowel perforation requiring ileostomy and also have a enterocutaneous fistula, patient did have multiple admission to the hospital presenting back to the hospital about a week ago on 12/26/2023 with readmission within 24 hours where apparently the patient was treated for pneumonia and respiratory failure patient has been admitted to the medical team and has been evaluated by nephrology and surgical team, patient was noticed to have some bleeding from his ostomy, patient did have abdominal pelvis CT showing areas of active extravasation noted on early arterial phase and the patient did have suturing of the bleeding vessel done by general surgery on 12/30/2023, patient was in the ICU apparently the patient did have worsening of his respiratory status patient become obtunded unresponsive did got intubated on 01/01/2024 and the patient has been on the ventilator patient has been on broad spec antibiotic, vancomycin and Zosyn Eraxis has been added by glue mixer infectious he was consulted today as the patient noticed to have worsening of his white count up to 17.1 by the admitting team patient did have a creatinine 0.90 liver isms are normal patient did have a CT of testing which was negative influenza enterovirus PCR was negative patient did have bronchoscopy done by pulmonary as of 12/31/2023 with the cultures currently pending most information has been obtained from review the chart and nursing staff patient is currently hypotensive and is requiring significant mount of pressor support to maintain his blood pressure and he did have a low-grade fever 100.3 F this morning patie nt is currently on the vent requiring 50% FiO2 did have a chest x-ray this morning left basilar atelectasis or airspace disease Review of Systems Positive points has been mentioned in HPI complete review could not be obtained because patient intubated on the vent Past Medical History Past Medical History: CVA/TIA, Deep Vein Thrombosis (DVT) Additional Past Medical History / Comment(s): Progressing left upper thigh pain and swelling and left leg weakness. 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 Crohns. Ostomy Bag placed in 09/2021. History of Any Multi-Drug Resistant Organisms: MRSA Year Discovered:: 12/14/23 MDRO Source:: MRSA- nasal Past Surgical History: Cholecystectomy, Orthopedic Surgery Additional Past Surgical History / Comment(s): Arm surgery, right leg below knee amputation, ostomy (2021) Past Anesthesia/Blood Transfusion Reactions: No Reported Reaction Past Psychological History: No Psychological Hx Reported Smoking Status: Former smoker Past Alcohol Use History: None Reported Additional Past Alcohol Use History / Comment(s): QUIT SMOKING IN 2017, STARTED SMOKING AT AGE 16, 1PPD. Past Drug Use History: None Reported - Past Family History Father Additional Family Medical History / Comment(s): DAD IN HIS TWENTIES - CAUSE UNKNOWN. Mother Family Medical History: Diabetes Mellitus Brother(s) Family Medical History: Cancer Additional Family Medical History / Comment(s): Kidney cancer as a baby. Medications and Allergies Home Medications Medication Instructions Recorded Confirmed Type Enoxaparin [Lovenox] 80 mg SQ BID@899,209907/07/22 12/26/23 History Pantoprazole [Protonix] 40 mg PO DAILY@89907/07/22 12/26/23 History Albuterol Sulfate [Albuterol 1 - 2 puff PO RT-Q4H PRN 09/10/22 12/26/23 History Sulfate Hfa] Loperamide HCl [Loperamide] 4 mg PO QID@08,12,16,20 11/10/22 12/26/23 History Ferrous Sulfate [Iron (65 MG 325 mg PO DAILY@89912/12/23 12/26/23 History Elemental)] Heparin Sodium,Porcine/Pf [Heparin 1 dose IV DAILY PRN 12/12/23 12/26/23 History 500 Unit/5 ml (100/ml) Flush] Metoprolol Tartrate [Lopressor] 12.5 mg PO BID@899,209912/12/23 12/26/23 History Omeprazole [PriLOSEC] 40 mg PO DAILY #30 cap 12/12/23 12/26/23 Rx Sodium Chloride 0.9% [Saline 0.9%] 10 ml IV DAILY PRN 12/12/23 12/26/23 History Vitamin A 2,400 mcg PO DAILY@89912/12/23 12/26/23 History traZODone HCL [Desyrel] 50 mg PO HS PRN 12/12/23 12/26/23 History Cholecalciferol (Vitamin D3) 1,250 mcg PO MOTH 12/13/23 12/26/23 History [Vitamin D3 (1250 Mcg = 50,000 Iu)] Furosemide [Lasix] 40 mg PO BID@0900,1600 #30 tab 12/25/23 12/26/23 Rx Potassium Chloride ER [K-Dur 20] 20 meq PO DAILY #30 tab 12/25/23 12/26/23 Rx amLODIPine [Norvasc] 5 mg PO DAILY #30 tab 12/25/23 12/26/23 Rx HYDROcodone/APAP 5-325MG [Arabi 1 tab PO Q6HR PRN 12/26/23 12/26/23 History 5-325] Allergies Allergy/AdvReac Type Severity Reaction Status Date / Time No Known Allergies Allergy Verified 12/26/23 12:48 Physical Exam Vitals: Vital Signs Temp Pulse Resp BP Pulse Ox FiO2 01/01/24 13:00 90 26 H 120/53 98 01/01/24 12:45 92 26 H 99 01/01/24 12:30 91 26 H 100 01/01/24 12:15 92 26 H 100 01/01/24 12:00 100.1 F H 93 27 H 131/63 100 01/01/24 11:48 98 01/01/24 11:45 98 26 H 99 01/01/24 11:40 95 01/01/24 11:35 50 01/01/24 11:30 96 26 H 100 01/01/24 11:15 96 26 H 100 01/01/24 11:00 89 26 H 113/49 100 01/01/24 10:45 90 26 H 100 01/01/24 10:30 93 26 H 100 01/01/24 10:15 92 26 H 100 01/01/24 10:00 94 26 H 115/50 99 01/01/24 09:45 96 26 H 100 01/01/24 09:40 50 01/01/24 09:30 98 26 H 100 01/01/24 09:15 98 26 H 100 01/01/24 09:00 100 26 H 114/50 100 01/01/24 08:52 99 01/01/24 08:45 98 26 H 97 10/16/24 08:41 101 H 01/01/24 08:34 50 01/01/24 08:30 98 26 H 95 01/01/24 08:15 94 26 H 99 01/01/24 08:00 100.3 F H 96 26 H 121/56 99 01/01/24 07:45 96 26 H 99 01/01/24 07:30 96 26 H 100 01/01/24 07:15 99 26 H 99 01/01/24 07:00 100 26 H 114/53 100 01/01/24 06:45 101 H 26 H 114/53 99 01/01/24 06:43 100 01/01/24 06:30 103 H 26 H 114/53 86 L 01/01/24 06:15 100 26 H 114/53 94 L 01/01/24 06:00 101 H 26 H 117/61 88 L 01/01/24 05:45 103 H 26 H 117/61 90 L 01/01/24 05:30 101 H 26 H 117/61 94 L 01/01/24 05:15 103 H 29 H 117/61 85 L 01/01/24 05:00 100.1 F H 93 26 H 104/56 97 50 01/01/24 04:45 92 21 104/56 98 01/01/24 04:30 92 26 H 104/56 99 01/01/24 04:15 92 26 H 104/56 99 01/01/24 04:00 90 27 H 98 50 01/01/24 03:45 93 25 H 100 01/01/24 03:30 94 26 H 100 01/01/24 03:26 93 01/01/24 03:15 93 26 H 91 L 01/01/24 03:14 93 01/01/24 03:00 99.1 F 93 21 134/59 99 01/01/24 02:45 92 15 134/59 99 01/01/24 02:30 92 24 133/53 96 50 01/01/24 02:15 99 26 H 78/42 97 01/01/24 02:10 50 01/01/24 02:00 94 20 98/49 100 100 01/01/24 01:45 94 19 97/42 94 L 01/01/24 01:38 100 01/01/24 01:30 96 39 H 96/36 92 L 01/01/24 01:15 102 H 33 H 90 L 01/01/24 01:00 105 H 26 H 102/41 92 L 01/01/24 00:45 105 H 27 H 102/41 92 L 01/01/24 00:30 103 H 27 H 95/37 92 L 01/01/24 00:15 105 H 24 92/38 92 L 01/01/24 00:00 103 H 22 94/38 96 12/31/23 23:45 105 H 22 106/42 96 12/31/23 23:30 107 H 29 H 95/40 83 L 12/31/23 23:15 105 H 30 H 100/39 95 12/31/23 23:13 50 12/31/23 23:00 107 H 26 H 107/42 94 L 12/31/23 22:45 105 H 35 H 80/33 94 L 12/31/23 22:30 97 19 112/49 94 L 12/31/23 22:15 105 H 13 123/55 95 12/31/23 22:00 105 H 19 115/47 95 12/31/23 21:45 104 H 13 119/75 96 12/31/23 21:30 103 H 17 107/40 95 12/31/23 21:15 100 32 H 93/43 95 12/31/23 21:00 100 20 92/41 95 12/31/23 20:45 101 H 12 107/44 95 12/31/23 20:30 100 27 H 96/39 94 L 12/31/23 20:15 97 22 95/35 94 L 12/31/23 20:00 98.6 F 97 17 98/45 95 50 12/31/23 19:45 101 H 19 98/47 95 12/31/23 19:30 97 28 H 98/41 95 12/31/23 19:19 50 12/31/23 19:15 100 17 102/48 96 12/31/23 19:00 99 17 91/38 96 50 12/31/23 18:45 97 17 89/39 96 12/31/23 18:30 97 15 86/40 96 12/31/23 18:28 50 12/31/23 18:15 95 21 93/35 99 12/31/23 18:00 96 18 87/48 99 70 12/31/23 17:45 97 16 91/50 99 12/31/23 17:30 94 16 93/44 99 12/31/23 17:15 96 18 88/34 99 12/31/23 17:00 109 H 18 70/42 99 70 12/31/23 16:45 110 H 18 99/50 99 12/31/23 16:30 110 H 21 92/44 98 12/31/23 16:15 107 H 18 101/46 98 12/31/23 16:00 97.9 F 109 H 21 95/44 97 70 12/31/23 15:45 105 H 18 93/41 97 12/31/23 15:30 104 H 17 98/40 97 12/31/23 15:15 99 17 85/31 96 12/31/23 15:00 100 17 84/36 96 70 12/31/23 14:50 70 12/31/23 14:45 100 20 93/39 97 12/31/23 14:30 99 19 110/38 97 12/31/23 14:15 98 18 118/46 97 Intake and Output 12/31/23 01/01/24 01/01/24 22:59 06:59 14:59 Intake Total 4161.578 2046.712 3369.392 Output Total 435 1230 2250 Balance 3726.578 929.871 8906.392 Intake: IV 645 600 600 Mvi, Adult No.4 with Vit 120 K 10 ml Trace (Conc-1Ml/ Dose) 1 ml Sodium Chloride 4Meq/ml Vial 40 meq Calcium Gluconate 1 gm Sodium Acetate 40 meq In Amino Acid 5%-D15w 1, 000 ml @ 120 mls/hr IV . BY DURATION [facility] Rx#: [id number] Sodium Chloride 0.9% 1, 525 600 600 000 ml @ 75 mls/hr IV . [id number] [facility] Rx#:[id number] Intake, IV Titration 3516.578 3333.768 7818.392 Amount Anidulafungin 200 mg In 200 Sodium Chloride 0.9% 200 ml @ 84 mls/hr IVPB ONCE ONE Rx#:[id number] Magnesium Sulfate-D5w Pmx 200 1 gm In Dextrose/Water 1 100ml.bag @ 100 mls/hr IVPB Q1H [facility] Rx#: [id number] Mvi, Adult No.4 with Vit 165 K 10 ml Trace (Conc-1Ml/ Dose) 1 ml Sodium Chloride 4Meq/ml Vial 50 meq Sodium Acetate 50 meq Calcium Gluconate 1 gm Magnesium Sulfate gm 1 gm Potassium Phosphate 15 mmol In Amino Acid 5%- D15w 1,000 ml @ 55 mls/hr IV .[id number] [facility] Rx#: [id number] Norepinephrine 32 mg In 217.910 Sodium Chloride 0.9% 218 ml @ 0.03 MCG/KG/MIN 1. 333 mls/hr IV .Q24H [facility] Rx#:[id number] Norepinephrine 4 mg In 176.578 234.386 Sodium Chloride 0.9% 250 ml @ 0.03 MCG/KG/MIN 10. 888 mls/hr IV .[id number] [facility] Rx#:[id number] Piperacillin-Tazobactam 3 100 100 .375 gm In Sodium Chloride 0.9% 100 ml @ 25 mls/hr IVPB Q8HR [facility] Rx# :[id number] Potassium Phosphate 10 200 mmol In Sodium Chloride 0 .9% 100 ml @ 50 mls/hr IV Q2H [facility] Rx#:[id number] Sodium Chloride 0.9% 1, 1000 000 ml @ 999 mls/hr IV . Q1H1M ONE Rx#:[id number] Sodium Chloride 0.9% 2, 2000 000 ml @ 999 mls/hr IV . Q2H1M ONE Rx#:[id number] Sodium Chloride 4Meq/ml 840 1049 Vial 30 meq Calcium Gluconate 1 gm Sodium Acetate 60 meq Sodium Phosphate 3 mmol Magnesium Sulfate gm 0.25 gm In Amino Acid 5%-D15w 1,000 ml @ 55 mls/hr IV .BY DURATION [facility] Rx#: [id number] Vancomycin 1,500 mg In 500 Sodium Chloride 0.9% 500 ml 500 ml @ 167 mls/hr IVPB Q12H [facility] Rx#: [id number] Vancomycin 1,750 mg In 500 Sodium Chloride 0.9% 500 ml 500 ml @ 167 mls/hr IVPB ONCE ONE Rx#: [id number] Vasopressin 20 unit In 28.356 Sodium Chloride 0.9% 50 ml @ 0.03 UNITS/MIN 4.59 mls/hr IV .[id number] [facility] Rx# :[id number] propofoL 1,000 mg In 63.326 158.126 Empty Bag 1 bag @ 15 MCG/ KG/MIN 8.532 mls/hr IV . [id number] [facility] Rx#:[id number] Output: Urine 105 109 8264 Stool 400 Other: Voiding Method Indwelling Catheter Indwelling Catheter Weight 96 kg 96 kg ABP, PAP, CO, CI - Last 8 Hours Arterial Blood Pressure 134/52 Arterial Blood Pressure 107/44 Arterial Blood Pressure 104/44 Arterial Blood Pressure 113/48 Arterial Blood Pressure 117/48 Arterial Blood Pressure 130/53 Arterial Blood Pressure 121/50 Arterial Blood Pressure 133/53 Arterial Blood Pressure 143/58 Arterial Blood Pressure 116/48 Arterial Blood Pressure 109/47 Arterial Blood Pressure 116/52 Arterial Blood Pressure 103/45 Arterial Blood Pressure 114/48 Arterial Blood Pressure 113/49 Arterial Blood Pressure 105/47 Arterial Blood Pressure 115/49 Arterial Blood Pressure 144/54 Arterial Blood Pressure 154/58 Arterial Blood Pressure 119/50 Arterial Blood Pressure 124/52 Arterial Blood Pressure 130/53 Arterial Blood Pressure 125/51 Arterial Blood Pressure 124/51 Arterial Blood Pressure 134/54 Arterial Blood Pressure 130/54 Arterial Blood Pressure 137/55 Arterial Blood Pressure 140/60 GENERAL DESCRIPTION: Middle-age male intubated on the [facility] HEENT: Shows Pallor , no scleral icterus. Oral mucous membrane is dry. NECK: Trachea central, no thyromegaly. LUNGS: Unlabored breathing. Decreased breath sounds at the base HEART: S1, S2, regular rate and rhythm. No loud murmur ABDOMEN: Soft, did have ileostomy with enterocutaneous fistula covered with the large ostomy bag with liquidy stool EXTREMITIES: No edema of feet. SKIN: No rash, no masses palpable. NEUROLOGICAL: The patient is sedated on the vent Results CBC & Chem 7: 01/02/24 04:50 01/02/24 15:04 Labs: Abnormal Lab Results - Last 24 Hours (Table) 12/31/23 12/31/23 01/01/24 Range/Units 18:35 23:56 00:56 WBC (3.8-10.6) k/uL RBC (4.30-5.90) m/uL Hgb (13.0-17.5) gm/dL Hct (39.0-53.0) % MCHC (31.0-37.0) g/dL RDW (11.5-15.5) % Neutrophils # (1.3-7.7) k/uL Lymphocytes # (1.0-4.8) k/uL ABG pH (7.35-7.45) ABG pCO2 (35-45) mmHg ABG pO2 (83-108) mmHg ABG HCO3 (21-25) mmol/L ABG Total CO2 (19-24) mmol/L ABG O2 Saturation (94-97) % Hemoglobin (13.0-17.5) gm/dL Potassium (3.5-5.1) mmol/L Chloride (98-107) mmol/L Carbon Dioxide (22-30) mmol/L BUN (9-20) mg/dL Glucose (74-99) mg/dL POC Glucose (mg/dL) 207 H 184 H (70-110) mg/dL Calcium (8.4-10.2) mg/dL Phosphorus (2.5-4.5) mg/dL Magnesium (1.6-2.3) mg/dL Total Protein (6.3-8.2) g/dL Albumin (3.5-5.0) g/dL Cortisol 25.7 H (3.1-22.4) UG/DL 01/01/24 01/01/24 01/01/24 Range/Units 01:42 01:42 02:07 WBC 21.9 H (3.8-10.6) k/uL RBC 2.98 L (4.30-5.90) m/uL Hgb 8.5 L D (13.0-17.5) gm/dL Hct 27.5 L (39.0-53.0) % MCHC 30.8 L (31.0-37.0) g/dL RDW 16.4 H (11.5-15.5) % Neutrophils # (1.3-7.7) k/uL Lymphocytes # (1.0-4.8) k/uL ABG pH 7.07 L* (7.35-7.45) ABG pCO2 64 H (35-45) mmHg ABG pO2 286 H (83-108) mmHg ABG HCO3 19 L (21-25) mmol/L ABG Total CO2 (19-24) mmol/L ABG O2 Saturation 99.0 H (94-97) % Hemoglobin (13.0-17.5) gm/dL Potassium 3.2 L (3.5-5.1) mmol/L Chloride 115 H (98-107) mmol/L Carbon Dioxide (22-30) mmol/L BUN 105 H* (9-20) mg/dL Glucose 195 H (74-99) mg/dL POC Glucose (mg/dL) (70-110) mg/dL Calcium 8.2 L (8.4-10.2) mg/dL Phosphorus (2.5-4.5) mg/dL Magnesium (1.6-2.3) mg/dL Total Protein 5.3 L (6.3-8.2) g/dL Albumin 2.2 L (3.5-5.0) g/dL Cortisol (3.1-22.4) UG/DL 01/01/24 01/01/24 01/01/24 Range/Units 04:37 06:03 10:35 WBC (3.8-10.6) k/uL RBC (4.30-5.90) m/uL Hgb (13.0-17.5) gm/dL Hct (39.0-53.0) % MCHC (31.0-37.0) g/dL RDW (11.5-15.5) % Neutrophils # (1.3-7.7) k/uL Lymphocytes # (1.0-4.8) k/uL ABG pH 7.21 L (7.35-7.45) ABG pCO2 (35-45) mmHg ABG pO2 (83-108) mmHg ABG HCO3 17 L (21-25) mmol/L ABG Total CO2 18 L (19-24) mmol/L ABG O2 Saturation 98.0 H (94-97) % Hemoglobin 8.9 L (13.0-17.5) gm/dL Potassium 2.7 L* (3.5-5.1) mmol/L Chloride 115 H (98-107) mmol/L Carbon Dioxide 21 L (22-30) mmol/L BUN 82 H (9-20) mg/dL Glucose 186 H (74-99) mg/dL POC Glucose (mg/dL) 273 H (70-110) mg/dL Calcium 8.2 L (8.4-10.2) mg/dL Phosphorus 0.9 L* (2.5-4.5) mg/dL Magnesium 1.5 L (1.6-2.3) mg/dL Total Protein (6.3-8.2) g/dL Albumin (3.5-5.0) g/dL Cortisol (3.1-22.4) UG/DL 01/01/24 01/01/24 Range/Units 10:35 11:47 WBC 17.1 H (3.8-10.6) k/uL RBC 2.79 L (4.30-5.90) m/uL Hgb 7.8 L (13.0-17.5) gm/dL Hct 25.5 L (39.0-53.0) % MCHC 30.7 L (31.0-37.0) g/dL RDW 16.6 H (11.5-15.5) % Neutrophils # 15.2 H (1.3-7.7) k/uL Lymphocytes # 0.9 L (1.0-4.8) k/uL ABG pH (7.35-7.45) ABG pCO2 (35-45) mmHg ABG pO2 (83-108) mmHg ABG HCO3 (21-25) mmol/L ABG Total CO2 (19-24) mmol/L ABG O2 Saturation (94-97) % Hemoglobin (13.0-17.5) gm/dL Potassium (3.5-5.1) mmol/L Chloride (98-107) mmol/L Carbon Dioxide (22-30) mmol/L BUN (9-20) mg/dL Glucose (74-99) mg/dL POC Glucose (mg/dL) 165 H (70-110) mg/dL Calcium (8.4-10.2) mg/dL Phosphorus (2.5-4.5) mg/dL Magnesium (1.6-2.3) mg/dL Total Protein (6.3-8.2) g/dL Albumin (3.5-5.0) g/dL Cortisol (3.1-22.4) UG/DL Assessment and Plan (1) Pneumonia Current Visit: Yes Status: Acute Code(s): J18.9 - PNEUMONIA, UNSPECIFIED ORGANISM SNOMED Code(s): 658756142 (2) Sepsis Current Visit: No Status: Acute Code(s): A41.9 - SEPSIS, UNSPECIFIED ORGA NISM SNOMED Code(s): 35154515 Plan: 1patient with sepsis/septic shock in this patient who did have a fever elevated white count high clinical suspicion of possible left lower lobe pneumonia in this patient who did have multiple comorbidities and complicated intra-abdominal history with history of bowel perforation and did have ileostomy and enterocutaneous fistula keeping in mind the patient has been in and out of the hospital we will need to cover for the resistant gram-positive as well as gram- negative pathogen 2-patient is appropriately covered with vancomycin pharmacy to dose and Zosyn however we will need to monitor his kidney function very closely with his antibiotic combination 3-antibiotic adjusted on the basis of the BAL culture and clinical response Family at the bedside question concern also We will follow on clinical condition and cultures to further adjust medication if needed Thank you for this consultation we will follow the patient along with you Dictation was produced using [employer] dictation software. please excuse any grammatical, word or spelling errors. Time with Patient: Greater than 30
[2024-01-02] MEDS: FERROUS SULFATE ORAL ELIXIR 300 MG/5 ML CUP PO SCH (09:54)
--- NOTE | 2024-01-02 11:12 | P.PN ---
Subjective Progress Note Date: 01/02/24 This is a pleasant 48 years old male with past medical history of Crohn disease complicated with bowel perforation requiring ileostomy, also has 2 fistula in his anterior abdominal Wall, patient also has left upper chest portal to receive TPN who was only discharged yesterday after being admitted to the hospital for pneumonia and respiratory failure was discharged yesterday in stable condition. Patient came back to the ER today because of debility and having issues with his TPN supplies. There has been some issues with primary care appointments and orders with TPN requiring signature from his PCP. At this time patient denies any chest pain or shortness of breath. There was no complaint of fever or chills. Denies any nausea, vomiting, abdominal pain. Denies any lightheaded dizziness. Initial lab work done in the ER showed W6.3, hemoglobin 20.7, platelet count 264, sodium 130, potassium 4.9, BUN 20, creatinine 0.41, phosphorus 2.4, alk phos 133, total protein 9 Patient admitted to internal medicine service 12/26. Patient seen and examined. Complaining of pain in his right hand. Александр es any shortness of breath /12. Patient seen and examined. Potassium level this morning was 5.5, patient was getting potassium supplementation, will DC it for now. 12/28. Patient seen and examined. Patient had a rapid response called overnight for low blood pressure, patient was given 2-1/2 L of fluid. Labs on this morning showed WBC 10.4, hemoglobin 14.4, platelet count 420, sodium 124, potassium 5.5, BUN 104, creatinine 1.59. Ostomy output is blood-tinged. 12/30/2023 Patient continues in the ICU requiring low-dose pressor support and currently being weaned. Multiple consultations following including general surgery and did a washout of the abdomen early this morning along with cauterizing and placing sutures to an area near the ostomy that had been bleeding. Hemoglobin is stable and is being closely monitored with hemoglobins every 6 hours. Transfuse if 7 or less. Patient to continue with strict n.p.o. and is maintained on TPN. Blood sugars have been more elevated and will add long- acting and adjust insulins accordingly 12/31/2023 Patient continues in the ICU with multiple consultations following. Patient requiring increased oxygen demands currently on 6 L and transition to Airvo and pulmonary pie filling mixer following planning on bronchoscopy today. Patient is afeb rile although continues with an elevated white count and hemoglobin is stable above 8 with no active bleeding noted. Patient is n.p.o. maintained on TPN at this time. Blood sugars continue to be in the 200s consistently and will adjust long-acting and continue sliding scale. 01/01/2024 patient is seen in follow up today and experienced increasing respiratory demands and became more obtunded and unresponsive requiring mechanical ventilation. Patient FiO2 is 50% with a PEEP of 8 and is status post bronchoscopy yesterday. Patient maintained on Levophed and vasopressin along with propofol. White count is elevated and patient is continued on IV antibiotics in the form of vancomycin and Zosyn. Cultures have been sent and pending at this time. Will consult infectious disease and appreciate input and recommendations. Hemoglobin is stable at 7.8 with no active bleeding noted. Potassium 2.7 and magnesium 1.5 along with phosphorus 0.9 and being replaced per protocol. Kidney functions remained stable at this time other than a chloride of 115 and sodium is 142. Patient is also being started on Eraxis. Recommend adjusting TPN per dietary and pharmacy. Overall prognosis remains ex tremely guarded at this time. 01/02/2024 Patient is evaluated in the intensive care unit he is currently intubated however he is awake alert oriented with eye moving and able to respond with nods to simple questions. Pressor support in the process of being weaned her blood pressure 144/65. Mechanical ventilator with an FiO2 of 50% and a PEEP of . Continues on TPN. Rectal tube in place continues with loose stools. C.Dif was negative. Cultures currently pending. Remains on Antibiotics with IV Zosyn, IV vancomycin as well as IV anidulafungin. Procalcitonin level was mildly elevated at 1.38. X-ray this morning reveals basilar atelectasis on the left as well as right midlung. Has white blood cell count is down to 10.7 today hemoglobin of 8.1. Sodium level is 142, potassium 2.6, BUN of 43 creatinine of 0.68. Magnesium 1.7. Blood glucose in the 150s continues on Levemir twice a day for this. REVIEW OF SYSTEMS: Unable to assess as patient is on sedation and mechanically ventilated PHYSICAL EXAMINATION: GENERAL: The patient is alert and oriented x 0, intubated and maintained on sedation, ill looking, elderly appearing, obese. FiO2 is 50% with a PEEP of 8 HEENT: Pupils are round and equally reacting to light. EOMI. No scleral icterus. No conjunctival pallor. Normocephalic, atraumatic. No pharyngeal erythema. No thyromegaly. CARDIOVASCULAR: S1 and S2 muffled PULMONARY: Diminished breath sound the bases bilaterally with coarse rhonchi and a few scattered crackles ABDOMEN: Soft, nontender, nondistended,. Ostomy seen with brown stool, loose MUSCULOSKELETAL: No joint swelling or deformity. Right BKA EXTREMITIES: No cyanosis, clubbing, or pedal edema. NEUROLOGICAL: Gross neurological examination did not reveal any focal deficits. Could not completely assess as patient is on propofol for sedation SKIN: No rashes. Pale Assessment: Hypotension with hypotensive shock requiring pressor support likely secondary to acute GI bleed and hypovolemia Acute GI bleed from the ostomy secondary to an abdominal wall extravasation near the ostomy requiring sutures and cauterization 12/30/2023 Acute blood loss anemia secondary to above acute kidney injury secondary to hypotension History of DVT Acute on chronic hypoxic respiratory failure requiring Airvo, status post b ronchoscopy today 12/31/2023, with worsening respiratory distress requiring mechanical ventilation overnight 01/01/2024 Leukocytosis, trending down, was started on Vanco and Zosyn also IV eraxis Moderate protein calorie malnutrition maintained on TPN Hyperkalemia, improved status post Lokelma Hyponatremia history of Crohn disease complicated with bowel perforation requiring ileostomy, also has 2 fistula in his anterior abdominal Wall, patient also has left upper chest portal to receive 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 Patient continues on low-dose pressor support as well as vasopressin which is currently being weaned today. General Surgery following status post abdominal washout of the ostomy area and sutures placed with cauterization as there was an area that was bleeding near the ostomy. C.Dif is negative at this time. ID on and following cultures. TPN has been resumed and tolerating Monitor H&H every 6 and transfuse if 7 or less. Patient has required 2 units of PRBC since admission. No further bleeding noted and hemoglobin remains at 7.8 today, possible component of some dilution as well as patient received 2 to 3 L IV fluids Blood sugars have been mildly elevated and recommend to monitor Accu-Cheks before meals and at bedtime and will continue sliding scale. Continues on Lev bhumika BID with improvement in the hyperglycemia. Patient requiring increased oxygen demands while on Airvo and became more obtunded and confused and unresponsive requiring mechanical ventilation and in tubation FiO2 is 50% with a PEEP of 8. Today he is awake and alert. Patient being monitored closely on IV fluids and diuretics have been held. Will follow-up on repeat labs and monitor electrolytes closely. Potassium, phosphorus, magnesium low and being replaced per protocol Case management/social work following and patient will require outpatient TPN supplies and follow-up with primary care provider. Recommending dietary and pharmacy to adjust TPN Due to multiple complex medical issues, overall prognosis is extremely guarded The impression and plan of care has been dictated by Coral Medina, Nurse Practitioner as directed. Dr. Mo MD I have performed a history and physical examination and medical decision making of this patient, discussed the same with the dictator, and agree with the dictators assessment and plan as written, documented as a scribe. Based on total visit time, I have performed more than 50% of this visit. Objective - Vital Signs Vital signs: Vital Signs Temp 99.0 F 01/02/24 04:00 Pulse 75 01/02/24 07:52 Resp 26 H 01/02/24 07:30 BP 130/67 01/02/24 07:30 Pulse Ox 100 01/02/24 07:30 FiO2 50 01/02/24 07:38 Intake & Output 01/01/24 01/02/24 01/02/24 18:59 06:59 18:59 Intake Total 4700.535 1395.584 314.435 Output Total 4575 3650 375 Balance 125.535 -2254.416 -60.565 Weight 96 kg 100.4 kg Intake: IV 900 900 150 Sodium Chloride 0.9% 1, 900 900 150 000 ml @ 75 mls/hr IV . [id number] [facility] Rx#:[id number] Intake, IV Titration 3770.535 495.584 164.435 Amount Anidulafungin 200 mg In 200 Sodium Chloride 0.9% 200 ml @ 84 mls/hr IVPB ONCE ONE Rx#:[id number] Magnesium Sulfate-D5w Pmx 200 1 gm In Dextrose/Water 1 100ml.bag @ 100 mls/hr IVPB Q1H [facility] Rx#: [id number] Mvi, Adult No.4 with Vit 440 55 K 10 ml Trace (Conc-1Ml/ Dose) 1 ml Sodium Chloride 4Meq/ml Vial 50 meq Sodium Acetate 50 meq Calcium Gluconate 1 gm Magnesium Sulfate gm 1 gm Potassium Phosphate 15 mmol In Amino Acid 5%- D15w 1,000 ml @ 55 mls/hr IV .[id number] [facility] Rx#: [id number] Norepinephrine 32 mg In 302.513 132.864 14.435 Sodium Chloride 0.9% 218 ml @ 0.03 MCG/KG/MIN 1. 333 mls/hr IV .Q24H [facility] Rx#:[id number] Piperacillin-Tazobactam 3 200 100 .375 gm In Sodium Chloride 0.9% 100 ml @ 25 mls/hr IVPB Q8HR [facility] Rx# :[id number] Potassium Chloride 20 meq 50 In Water For Injection 100 100ml.bag @ 50 mls/hr IVPB Q2H [facility] Rx#: [id number] Potassium Phosphate 10 600 mmol In Sodium Chloride 0 .9% 100 ml @ 50 mls/hr IV Q2H [facility] Rx#:[id number] Sodium Chloride 0.9% 1, 1000 000 ml @ 999 mls/hr IV . Q1H1M [facility] Rx#:[id number] Vancomycin 1,500 mg In 500 Sodium Chloride 0.9% 500 ml 500 ml @ 167 mls/hr IVPB Q12H [facility] Rx#: [id number] Vasopressin 20 unit In 69.896 47.048 Sodium Chloride 0.9% 50 ml @ 0.03 UNITS/MIN 4.59 mls/hr IV .[id number] [facility] Rx# :[id number] propofoL 1,000 mg In 258.126 260.672 Empty Bag 1 bag @ 15 MCG/ KG/MIN 8.532 mls/hr IV . [id number] [facility] Rx#:[id number] Other 30 Output: Gastric Drainage 300 Urine 3475 3200 375 Stool 800 450 Other: Voiding Method Indwelling Catheter Indwelling Catheter ABP, PAP, CO, CI - Last Documented Arterial Blood Pressure 147/63 - Labs CBC & Chem 7: 01/02/24 04:50 01/02/24 04:50 Labs: Abnormal Lab Results - Last 24 Hours (Table) 01/01/24 01/01/24 01/01/24 Range/Units 00:56 10:35 10:35 WBC 17.1 H (3.8-10.6) k/uL RBC 2.79 L (4.30-5.90) m/uL Hgb 7.8 L (13.0-17.5) gm/dL Hct 25.5 L (39.0-53.0) % MCHC 30.7 L (31.0-37.0) g/dL RDW 16.6 H (11.5-15.5) % Neutrophils # 15.2 H (1.3-7.7) k/uL Lymphocytes # 0.9 L (1.0-4.8) k/uL ABG pCO2 (35-45) mmHg ABG pO2 (83-108) mmHg ABG O2 Saturation (94-97) % Hemoglobin (13.0-17.5) gm/dL Potassium 2.7 L* (3.5-5.1) mmol/L Chloride 115 H (98-107) mmol/L Carbon Dioxide 21 L (22-30) mmol/L BUN 82 H (9-20) mg/dL Glucose 186 H (74-99) mg/dL POC Glucose (mg/dL) (70-110) mg/dL Calcium 8.2 L (8.4-10.2) mg/dL Phosphorus 0.9 L* (2.5-4.5) mg/dL Magnesium 1.5 L (1.6-2.3) mg/dL Procalcitonin (0.02-0.50) ng/mL Cortisol 25.7 H (3.1-22.4) UG/DL 01/01/24 01/01/24 01/01/24 Range/Units 10:35 11:47 17:44 WBC (3.8-10.6) k/uL RBC (4.30-5.90) m/uL Hgb (13.0-17.5) gm/dL Hct (39.0-53.0) % MCHC (31.0-37.0) g/dL RDW (11.5-15.5) % Neutrophils # (1.3-7.7) k/uL Lymphocytes # (1.0-4.8) k/uL ABG pCO2 (35-45) mmHg ABG pO2 (83-108) mmHg ABG O2 Saturation (94-97) % Hemoglobin (13.0-17.5) gm/dL Potassium (3.5-5.1) mmol/L Chloride (98-107) mmol/L Carbon Dioxide (22-30) mmol/L BUN (9-20) mg/dL Glucose (74-99) mg/dL POC Glucose (mg/dL) 165 H 160 H (70-110) mg/dL Calcium (8.4-10.2) mg/dL Phosphorus (2.5-4.5) mg/dL Magnesium (1.6-2.3) mg/dL Procalcitonin 1.38 H (0.02-0.50) ng/mL Cortisol (3.1-22.4) UG/DL 01/01/24 01/01/24 01/01/24 Range/Units 20:54 20:54 20:59 WBC (3.8-10.6) k/uL RBC (4.30-5.90) m/uL Hgb (13.0-17.5) gm/dL Hct (39.0-53.0) % MCHC (31.0-37.0) g/dL RDW (11.5-15.5) % Neutrophils # (1.3-7.7) k/uL Lymphocytes # (1.0-4.8) k/uL ABG pCO2 (35-45) mmHg ABG pO2 (83-108) mmHg ABG O2 Saturation (94-97) % Hemoglobin (13.0-17.5) gm/dL Potassium 2.9 L (3.5-5.1) mmol/L Chloride 115 H (98-107) mmol/L Carbon Dioxide 21 L (22-30) mmol/L BUN (9-20) mg/dL Glucose (74-99) mg/dL POC Glucose (mg/dL) 134 H (70-110) mg/dL Calcium (8.4-10.2) mg/dL Phosphorus 2.0 L (2.5-4.5) mg/dL Magnesium (1.6-2.3) mg/dL Procalcitonin (0.02-0.50) ng/mL Cortisol (3.1-22.4) UG/DL 01/01/24 01/01/24 01/02/24 Range/Units 23:34 23:58 04:50 WBC 10.7 H (3.8-10.6) k/uL RBC 2.90 L (4.30-5.90) m/uL Hgb 8.1 L (13.0-17.5) gm/dL Hct 25.4 L (39.0-53.0) % MCHC (31.0-37.0) g/dL RDW 17.2 H (11.5-15.5) % Neutrophils # 8.3 H (1.3-7.7) k/uL Lymphocytes # (1.0-4.8) k/uL ABG pCO2 33 L (35-45) mmHg ABG pO2 117 H (83-108) mmHg ABG O2 Saturation 99.6 H (94-97) % Hemoglobin 8.1 L (13.0-17.5) gm/dL Potassium (3.5-5.1) mmol/L Chloride (98-107) mmol/L Carbon Dioxide (22-30) mmol/L BUN (9-20) mg/dL Glucose (74-99) mg/dL POC Glucose (mg/dL) 149 H (70-110) mg/dL Calcium (8.4-10.2) mg/dL Phosphorus (2.5-4.5) mg/dL Magnesium (1.6-2.3) mg/dL Procalcitonin (0.02-0.50) ng/mL Cortisol (3.1-22.4) UG/DL 01/02/24 01/02/24 Range/Units 04:50 05:45 WBC (3.8-10.6) k/uL RBC (4.30-5.90) m/uL Hgb (13.0-17.5) gm/dL Hct (39.0-53.0) % MCHC (31.0-37.0) g/dL RDW (11.5-15.5) % Neutrophils # (1.3-7.7) k/uL Lymphocytes # (1.0-4.8) k/uL ABG pCO2 (35-45) mmHg ABG pO2 (83-108) mmHg ABG O2 Saturation (94-97) % Hemoglobin (13.0-17.5) gm/dL Potassium 2.6 L* (3.5-5.1) mmol/L Chloride 117 H (98-107) mmol/L Carbon Dioxide (22-30) mmol/L BUN 43 H (9-20) mg/dL Glucose 147 H (74-99) mg/dL POC Glucose (mg/dL) 157 H (70-110) mg/dL Calcium (8.4-10.2) mg/dL Phosphorus 2.3 L (2.5-4.5) mg/dL Magnesium (1.6-2.3) mg/dL Procalcitonin (0.02-0.50) ng/mL Cortisol (3.1-22.4) UG/DL Microbiology - Last 24 Hours (Table) 12/31/23 14:00 Gram Stain - Preliminary Bronchoalviolar Lavage - Left 12/31/23 14:00 Acid Fast Bacilli Smear - Preliminary Bronchoalviolar Lavage - Left Assessment and Plan Time with Patient: Greater than 30
[2024-01-02 11:33] LABS: Glucose,Whole Blood 120 mg/dL (70-110)
[2024-01-02 11:55] LABS: Glucose,Whole Blood 117 mg/dL (70-110)
[2024-01-02] MEDS: SODIUM CHLORIDE 0.9% 1,000 ML IV SCH (12:13)
--- NOTE | 2024-01-02 12:29 | P.PN ---
Subjective patient is seen for follow-up for acute kidney injury Maintained on normal saline along with TPN. patient remains on the vent. He is awake and responds appropriately. Pressors have been decreased. Urine output at 200-2 50 mL an hour. Serum creatinine down to 0.68. Potassium was 2.6 today and is being replaced. Objective - Vital Signs Vital signs: Vital Signs Temp 99.8 F H 01/02/24 08:00 Pulse 84 01/02/24 12:00 Resp 26 H 01/02/24 12:00 BP 125/67 01/02/24 08:45 Pulse Ox 100 01/02/24 12:00 FiO2 50 01/02/24 12:00 Intake & Output 01/01/24 01/02/24 01/02/24 18:59 06:59 18:59 Intake Total 4700.535 8673.532 3975.579 Output Total 4575 3650 965 Balance 125.535 -2254.416 209.579 Weight 96 kg 100.4 kg Intake: IV 900 900 450 Sodium Chloride 0.9% 1, 900 900 450 000 ml @ 75 mls/hr IV . [id number] [facility] Rx#:[id number] Intake, IV Titration 3770.535 495.584 724.579 Amount Anidulafungin 100 mg In 100 Sodium Chloride 0.9% 100 ml @ 84 mls/hr IVPB DAILY [facility] Rx#:[id number] Anidulafungin 200 mg In 200 Sodium Chloride 0.9% 200 ml @ 84 mls/hr IVPB ONCE ONE Rx#:[id number] Magnesium Sulfate-D5w Pmx 200 1 gm In Dextrose/Water 1 100ml.bag @ 100 mls/hr IVPB Q1H [facility] Rx#: [id number] Mvi, Adult No.4 with Vit 440 55 K 10 ml Trace (Conc-1Ml/ Dose) 1 ml Sodium Chloride 4Meq/ml Vial 50 meq Sodium Acetate 50 meq Calcium Gluconate 1 gm Magnesium Sulfate gm 1 gm Potassium Phosphate 15 mmol In Amino Acid 5%- D15w 1,000 ml @ 55 mls/hr IV .[id number] [facility] Rx#: [id number] Norepinephrine 32 mg In 302.513 132.864 40.579 Sodium Chloride 0.9% 218 ml @ 0.03 MCG/KG/MIN 1. 333 mls/hr IV .Q24H [facility] Rx#:[id number] Piperacillin-Tazobactam 3 200 100 .375 gm In Sodium Chloride 0.9% 100 ml @ 25 mls/hr IVPB Q8HR [facility] Rx# :[id number] Potassium Chloride 20 meq 50 In Water For Injection 100 100ml.bag @ 50 mls/hr IVPB Q2H [facility] Rx#: [id number] Potassium Phosphate 10 600 mmol In Sodium Chloride 0 .9% 100 ml @ 50 mls/hr IV Q2H [facility] Rx#:[id number] Sodium Chloride 0.9% 1, 1000 000 ml @ 999 mls/hr IV . Q1H1M [facility] Rx#:[id number] Vancomycin 1,500 mg In 500 334 Sodium Chloride 0.9% 500 ml 500 ml @ 167 mls/hr IVPB Q12H [facility] Rx#: [id number] Vasopressin 20 unit In 69.896 47.048 Sodium Chloride 0.9% 50 ml @ 0.03 UNITS/MIN 4.59 mls/hr IV .Q11H7M [facility] Rx# :[id number] propofoL 1,000 mg In 258.126 260.672 100 Empty Bag 1 bag @ 15 MCG/ KG/MIN 8.532 mls/hr IV . [id number] [facility] Rx#:[id number] Other 30 Output: Gastric Drainage 300 Urine 3475 3200 965 Stool 800 450 Other: Voiding Method Indwelling Catheter Indwelling Catheter ABP, PAP, CO, CI - Last Documented Arterial Blood Pressure 102/49 - Exam patient is awake and on the vent. Examination of the heart S1 and S2 Examination of the lungs bilateral breath sounds are heard Abdomen is soft obese nontender, ileostomy right BKA noted Atrophy of lower extremities noted. edema noted 1+ bilateral - Labs CBC & Chem 7: 01/02/24 04:50 01/02/24 04:50 Labs: Abnormal Lab Results - Last 24 Hours (Table) 01/01/24 01/01/24 01/01/24 Range/Units 10:35 17:44 20:54 WBC (3.8-10.6) k/uL RBC (4.30-5.90) m/uL Hgb (13.0-17.5) gm/dL Hct (39.0-53.0) % RDW (11.5-15.5) % Neutrophils # (1.3-7.7) k/uL ABG pCO2 (35-45) mmHg ABG pO2 (83-108) mmHg ABG O2 Saturation (94-97) % Hemoglobin (13.0-17.5) gm/dL Potassium (3.5-5.1) mmol/L Chloride (98-107) mmol/L Carbon Dioxide (22-30) mmol/L BUN (9-20) mg/dL Glucose (74-99) mg/dL POC Glucose (mg/dL) 160 H (70-110) mg/dL Phosphorus 2.0 L (2.5-4.5) mg/dL Procalcitonin 1.38 H (0.02-0.50) ng/mL 01/01/24 01/01/24 01/01/24 Range/Units 20:54 20:59 23:34 WBC (3.8-10.6) k/uL RBC (4.30-5.90) m/uL Hgb (13.0-17.5) gm/dL Hct (39.0-53.0) % RDW (11.5-15.5) % Neutrophils # (1.3-7.7) k/uL ABG pCO2 (35-45) mmHg ABG pO2 (83-108) mmHg ABG O2 Saturation (94-97) % Hemoglobin (13.0-17.5) gm/dL Potassium 2.9 L (3.5-5.1) mmol/L Chloride 115 H (98-107) mmol/L Carbon Dioxide 21 L (22-30) mmol/L BUN (9-20) mg/dL Glucose (74-99) mg/dL POC Glucose (mg/dL) 134 H 149 H (70-110) mg/dL Phosphorus (2.5-4.5) mg/dL Procalcitonin (0.02-0.50) ng/mL 01/01/24 01/02/24 01/02/24 Range/Units 23:58 04:50 04:50 WBC 10.7 H (3.8-10.6) k/uL RBC 2.90 L (4.30-5.90) m/uL Hgb 8.1 L (13.0-17.5) gm/dL Hct 25.4 L (39.0-53.0) % RDW 17.2 H (11.5-15.5) % Neutrophils # 8.3 H (1.3-7.7) k/uL ABG pCO2 33 L (35-45) mmHg ABG pO2 117 H (83-108) mmHg ABG O2 Saturation 99.6 H (94-97) % Hemoglobin 8.1 L (13.0-17.5) gm/dL Potassium 2.6 L* (3.5-5.1) mmol/L Chloride 117 H (98-107) mmol/L Carbon Dioxide (22-30) mmol/L BUN 43 H (9-20) mg/dL Glucose 147 H (74-99) mg/dL POC Glucose (mg/dL) (70-110) mg/dL Phosphorus 2.3 L (2.5-4.5) mg/dL Procalcitonin (0.02-0.50) ng/mL 01/02/24 01/02/24 01/02/24 Range/Units 05:45 11:32 11:53 WBC (3.8-10.6) k/uL RBC (4.30-5.90) m/uL Hgb (13.0-17.5) gm/dL Hct (39.0-53.0) % RDW (11.5-15.5) % Neutrophils # (1.3-7.7) k/uL ABG pCO2 (35-45) mmHg ABG pO2 (83-108) mmHg ABG O2 Saturation (94-97) % Hemoglobin (13.0-17.5) gm/dL Potassium (3.5-5.1) mmol/L Chloride (98-107) mmol/L Carbon Dioxide (22-30) mmol/L BUN (9-20) mg/dL Glucose (74-99) mg/dL POC Glucose (mg/dL) 157 H 120 H 117 H (70-110) mg/dL Phosphorus (2.5-4.5) mg/dL Procalcitonin (0.02-0.50) ng/mL Microbiology - Last 24 Hours (Table) 01/01/24 02:18 Urine Culture - Preliminary Urine,Catheterized Gram Neg Bacilli 12/31/23 14:00 Gram Stain - Preliminary Bronchoalviolar Lavage - Left 12/31/23 14:00 Acid Fast Bacilli Smear - Preliminary Bronchoalviolar Lavage - Left Assessment and Plan Assessment: 1. Acute kidney injury, nonoliguric, related to hypotension. UA is benign. Maintained on IV fluids. BUN disproportionately elevated from GI bleed 2. Hypovolemic hyponatremia, improved with saline. 3. Metabolic acidosis secondary to acute kidney injury 4. History of Crohn's disease and bowel perforations currently on TPN. History of ileostomy 5. Hyperkalemia associated with acute kidney injury and GI bleed, resolved potassium is now low. 6. Acute GI bleed 7. Acute hypoxic respiratory failure Plan: continue antibiotics continue with saline, decrease dose to 50 ML per hour Replace potassiumand phosphorus
--- NOTE | 2024-01-02 12:45 | P.PN ---
Subjective Progress Note Date: 01/02/24 Patient is a 48-year-old male with complex past medical history including CVA, previous DVTs, right BKA, cardiac arrest in 2021, Crohn's disease, enterocutaneous fistulas, previous bowel resection. More recently, patient was admitted 12/13/2023 through 12/25/2023 for pneumonia and respiratory failure due to mucous plugging. He was intubated and placed on mechanical ventilator for approximately 6 days. He did have a bronchoscopy with BAL, microbiology positive for haemophilus influenza. Completed his antibiotics. Was discharged home. Unable to get supplies/TPN on discharge, and returned back to the emergency department on 12/26/2023. He was admitted, and while on the general medical floor. Noted to have some bleeding from his ostomy per the RN. This progressively became more copious, is currently dark red with clots. Previously on therapeutic dose of Lovenox, and this has been stopped. Dr. Munoz is aware of this patient, and he did receive 2 L fluid bolus earlier in the day yesterday. Patient is now hypotensive and symptomatic. 2 units of PRBCs are pending. General surgery is consulted and aware. Hemoglobin has dropped from 13.7 on admission, and is currently 9.8 g/dL. Abdominal and pelvis CT showing several areas of active extravasation noted on early arterial phase imaging within the superficial post operative ventral abdominal wall. Indeterminate whether this area of bleeding lies within a conglomeration of superficial bowel loop or is within the postoperative abdominal wall. No evidence of bowel obstruction. Also, dense bibasilar consolidations noted in the lower lobes. Remainder of patient's CBC includes a WBC count 9.1, hemoglobin 9.8, hematocrit 31.6, plat elets 361. Coags include a PT of 11.2, INR of 1, PTT of 28.4. Most recent BMP: Sodium 126, potassium 6.1, chloride 102, serum bicarb 17, BUN 102, creatinine 1, glucose 203. Hyperkalemia was treated with Lokelma, and is currently down to 5.8 g/dL. Patient is currently being evaluated in the intensive care unit. He is resting comfortably on room air. Alert and oriented x 3. Cold and diaphoretic. Blood pressure hypotensive, despite receiving an additional 1 L fluid bolus. Patient is going to be started on norepinephrine until blood products become available. Continues to have large volume dark blood with blood clots. No nausea or vomiting or hematemesis. No abdominal pain. General surgery currently evaluating patient, and recommendations to follow. On 12/31/2023, the patient is is being seen for a follow-up. No evidence of any bleeding from the abdominal wall. Nevertheless, the patient has a very weak congested cough unable to bring up much sputum. Initially was on 5 L of oxygen by nasal cannula and later on during the day he decompensated and currently is on Airvo in addition to 100% nonrebreather facemask. Obviously, the patient is having upper respiratory secretions and the patient will need a bronchoscopy. Chest x-ray showing smaller lung volumes. No evidence of any acute pulmonary filtration. The patient remains on normal citrate of 75 cc an hour. The patient is on TPN at a rate of 120 cc an hour. Norepinephrine is running at 0.06 mcg/kg/min. He is lethargic and arousable and able to communicate. Family is at the bedside. The white cell count is 15 with a hemoglobin 10.2 and a platelet count of 309. BUN is 105 with a creatinine of 1.04 and a sodium level is at 132 and a potassium level of 4.3 and a bicarb of 17. The patient is on TPN for nutritional support. On 01/01/2024, patient is being seen for a follow-up. Overnight, the patient went into respiratory failure and his blood gas showed severe respiratory acidosis. Noted the patient had extensive mucous plugging and required bronchoscopy yesterday with removal of approximately 30 cc of vascular secretions were essentially purulent. Post bronchoscopy, the patient became hypotensive and sepsis was suspected and the patient accordingly was placed on a combination of Zosyn and vancomycin. Cultures are still pending. Eraxis was also added to broaden antibiotic coverage. The patient this morning is on normal saline at rate of 75 cc an hour. Received a total of 3 L of IV fluid yes terday. Norepinephrine is running at 0.45 mcg/kg/min and the patient is also on vasopressin physiologic dose anteriorly and TPN running at 120 cc an hour. He is currently on assist-control mode of mechanical ventilation. He is sedated with propofol at rate of 40 mcg/kg/min. He is on a tidal volume of 450, rate of 26, FiO2 100% and a PEEP of 5. Blood gas showed a pH of 7.21 with a pCO2 of 42 and pO2 of 88. Chest x-ray shows atelectatic changes in lung bases bilaterally. Phosphorus level was 0.9. Magnesium level is at 1.9. Those need to be replaced. BUN is 82 with a creatinine of 0.9 and sodium levels at 142 with a potassium level of 2.7. WBC count 17.1 with a hemoglobin of 7.8 and a platelet count of 325. 01/02/2024, the patient remains intubated on mechanical ventilator. The patient remains on propofol which is running at 50 mcg/kg/min. The patient is adequately sedated and synchronous with mechanical ventilator. Started on assist-control mode with rate of 26, tidal volume of 450, FiO2 of 50% with a PEEP of 5. Blood gas showed pH of 7.44 with pCO2 of 33 and pO2 of 117. Chest x-ray showed atelectatic changes lung base bilaterally. At the same time, the patient remains on normal saline at rate of 75 cc an hour. He received a total of 4 L of normal saline yesterday. He also is receiving TPN at rate of 55 cc an hour. Norepinephrine is running at 0.19 mcg/min and this has been titrated compared to yesterday and the patient remains on vasopressin 0.03 units an hour. He is afebrile. Antibiotic coverage including combination of Zosyn and vancomycin and Eraxis. Renal function is stable. The patient has no active bleeding from the abdominal wall. The stool was checked for C. difficile and was negative. Sodium is 142, potassium is 2.6, BUN is 43 with a creatinine 0.68. WBC count of 10.7 with a hemoglobin of 8.1 and platelet count of 287. Objective - Vital Signs Vital signs: Vital Signs Temp 99.8 F H 01/02/24 08:00 Pulse 79 01/02/24 08:30 Resp 25 H 01/02/24 08:30 BP 125/67 01/02/24 08:30 Pulse Ox 100 01/02/24 08:30 FiO2 50 01/02/24 08:00 Intake & Output 01/01/24 01/02/24 01/02/24 18:59 06:59 18:59 Intake Total 4700.535 1395.584 323.175 Output Total 4575 3650 375 Balance 125.535 -2254.416 -51.825 Weight 96 kg 100.4 kg Intake: IV 900 900 150 Sodium Chloride 0.9% 1, 900 900 150 000 ml @ 75 mls/hr IV . [id number] [facility] Rx#:[id number] Intake, IV Titration 3770.535 495.584 173.175 Amount Anidulafungin 200 mg In 200 Sodium Chloride 0.9% 200 ml @ 84 mls/hr IVPB ONCE ONE Rx#:[id number] Magnesium Sulfate-D5w Pmx 200 1 gm In Dextrose/Water 1 100ml.bag @ 100 mls/hr IVPB Q1H [facility] Rx#: [id number] Mvi, Adult No.4 with Vit 440 55 K 10 ml Trace (Conc-1Ml/ Dose) 1 ml Sodium Chloride 4Meq/ml Vial 50 meq Sodium Acetate 50 meq Calcium Gluconate 1 gm Magnesium Sulfate gm 1 gm Potassium Phosphate 15 mmol In Amino Acid 5%- D15w 1,000 ml @ 55 mls/hr IV .[id number] [facility] Rx#: [id number] Norepinephrine 32 mg In 302.513 132.864 23.175 Sodium Chloride 0.9% 218 ml @ 0.03 MCG/KG/MIN 1. 333 mls/hr IV .Q24H [facility] Rx#:[id number] Piperacillin-Tazobactam 3 200 100 .375 gm In Sodium Chloride 0.9% 100 ml @ 25 mls/hr IVPB Q8HR [facility] Rx# :[id number] Potassium Chloride 20 meq 50 In Water For Injection 100 100ml.bag @ 50 mls/hr IVPB Q2H [facility] Rx#: [id number] Potassium Phosphate 10 600 mmol In Sodium Chloride 0 .9% 100 ml @ 50 mls/hr IV Q2H [facility] Rx#:[id number] Sodium Chloride 0.9% 1, 1000 000 ml @ 999 mls/hr IV . Q1H1M [facility] Rx#:[id number] Vancomycin 1,500 mg In 500 Sodium Chloride 0.9% 500 ml 500 ml @ 167 mls/hr IVPB Q12H [facility] Rx#: [id number] Vasopressin 20 unit In 69.896 47.048 Sodium Chloride 0.9% 50 ml @ 0.03 UNITS/MIN 4.59 mls/hr IV .Q11H7M [facility] Rx# :[id number] propofoL 1,000 mg In 258.126 260.672 Empty Bag 1 bag @ 15 MCG/ KG/MIN 8.532 mls/hr IV . [id number] [facility] Rx#:[id number] Other 30 Output: Gastric Drainage 300 Urine 3475 3200 375 Stool 800 450 Other: Voiding Method Indwelling Catheter Indwelling Catheter ABP, PAP, CO, CI - Last Documented Arterial Blood Pressure 134/58 - Exam GENERAL EXAM: 48-year-old male, sedated on propofol, intubated on the mechanical ventilator currently on assist-control mode of mechanical ventil ation. HEAD: Normocephalic and atraumatic EYES: Normal reaction of pupils, equal size. NOSE: Clear with pink turbinates. THROAT: No erythema or exudates. NECK: No masses, no JVD. CHEST: No chest wall deformity. Left subclavian double-lumen central line LUNGS: Equal air entry with no crackles, wheeze, rhonchi or dullness. On room air. No conversational dyspnea or accessory muscle use.. CVS: S1 and S2 normal with no audible murmur, regular rhythm. No extra heart sounds ABDOMEN: Ileostomy with brown stool, no evidence of any bleeding.. Bowel sounds present. Abdomen is soft and nontender. No organomegaly. SPINE: No scoliosis or deformity SKIN: No rashes CENTRAL NERVOUS SYSTEM: Sedated on propofol. EXTREMITIES: Right BKA, left leg weakness and left foot drop, remaining distal pulses are weak and only found with Doppler. Extremities are showing diminished pulses bilaterally otherwise no significant cyanosis. - Labs CBC & Chem 7: 01/02/24 04:50 01/02/24 04:50 Labs: Abnormal Lab Results - Last 24 Hours (Table) 01/01/24 01/01/24 01/01/24 Range/Units 10:35 10:35 10:35 WBC 17.1 H (3.8-10.6) k/uL RBC 2.79 L (4.30-5.90) m/uL Hgb 7.8 L (13.0-17.5) gm/dL Hct 25.5 L (39.0-53.0) % MCHC 30.7 L (31.0-37.0) g/dL RDW 16.6 H (11.5-15.5) % Neutrophils # 15.2 H (1.3-7.7) k/uL Lymphocytes # 0.9 L (1.0-4.8) k/uL ABG pCO2 (35-45) mmHg ABG pO2 (83-108) mmHg ABG O2 Saturation (94-97) % Hemoglobin (13.0-17.5) gm/dL Potassium 2.7 L* (3.5-5.1) mmol/L Chloride 115 H (98-107) mmol/L Carbon Dioxide 21 L (22-30) mmol/L BUN 82 H (9-20) mg/dL Glucose 186 H (74-99) mg/dL POC Glucose (mg/dL) (70-110) mg/dL Calcium 8.2 L (8.4-10.2) mg/dL Phosphorus 0.9 L* (2.5-4.5) mg/dL Magnesium 1.5 L (1.6-2.3) mg/dL Procalcitonin 1.38 H (0.02-0.50) ng/mL 01/01/24 01/01/24 01/01/24 Range/Units 11:47 17:44 20:54 WBC (3.8-10.6) k/uL RBC (4.30-5.90) m/uL Hgb (13.0-17.5) gm/dL Hct (39.0-53.0) % MCHC (31.0-37.0) g/dL RDW (11.5-15.5) % Neutrophils # (1.3-7.7) k/uL Lymphocytes # (1.0-4.8) k/uL ABG pCO2 (35-45) mmHg ABG pO2 (83-108) mmHg ABG O2 Saturation (94-97) % Hemoglobin (13.0-17.5) gm/dL Potassium (3.5-5.1) mmol/L Chloride (98-107) mmol/L Carbon Dioxide (22-30) mmol/L BUN (9-20) mg/dL Glucose (74-99) mg/dL POC Glucose (mg/dL) 165 H 160 H (70-110) mg/dL Calcium (8.4-10.2) mg/dL Phosphorus 2.0 L (2.5-4.5) mg/dL Magnesium (1.6-2.3) mg/dL Procalcitonin (0.02-0.50) ng/mL 01/01/24 01/01/24 01/01/24 Range/Units 20:54 20:59 23:34 WBC (3.8-10.6) k/uL RBC (4.30-5.90) m/uL Hgb (13.0-17.5) gm/dL Hct (39.0-53.0) % MCHC (31.0-37.0) g/dL RDW (11.5-15.5) % Neutrophils # (1.3-7.7) k/uL Lymphocytes # (1.0-4.8) k/uL ABG pCO2 (35-45) mmHg ABG pO2 (83-108) mmHg ABG O2 Saturation (94-97) % Hemoglobin (13.0-17.5) gm/dL Potassium 2.9 L (3.5-5.1) mmol/L Chloride 115 H (98-107) mmol/L Carbon Dioxide 21 L (22-30) mmol/L BUN (9-20) mg/dL Glucose (74-99) mg/dL POC Glucose (mg/dL) 134 H 149 H (70-110) mg/dL Calcium (8.4-10.2) mg/dL Phosphorus (2.5-4.5) mg/dL Magnesium (1.6-2.3) mg/dL Procalcitonin (0.02-0.50) ng/mL 01/01/24 01/02/24 01/02/24 Range/Units 23:58 04:50 04:50 WBC 10.7 H (3.8-10.6) k/uL RBC 2.90 L (4.30-5.90) m/uL Hgb 8.1 L (13.0-17.5) gm/dL Hct 25.4 L (39.0-53.0) % MCHC (31.0-37.0) g/dL RDW 17.2 H (11.5-15.5) % Neutrophils # 8.3 H (1.3-7.7) k/uL Lymphocytes # (1.0-4.8) k/uL ABG pCO2 33 L (35-45) mmHg ABG pO2 117 H (83-108) mmHg ABG O2 Saturation 99.6 H (94-97) % Hemoglobin 8.1 L (13.0-17.5) gm/dL Potassium 2.6 L* (3.5-5.1) mmol/L Chloride 117 H (98-107) mmol/L Carbon Dioxide (22-30) mmol/L BUN 43 H (9-20) mg/dL Glucose 147 H (74-99) mg/dL POC Glucose (mg/dL) (70-110) mg/dL Calcium (8.4-10.2) mg/dL Phosphorus 2.3 L (2.5-4.5) mg/dL Magnesium (1.6-2.3) mg/dL Procalcitonin (0.02-0.50) ng/mL 01/02/24 Range/Units 05:45 WBC (3.8-10.6) k/uL RBC (4.30-5.90) m/uL Hgb (13.0-17.5) gm/dL Hct (39.0-53.0) % MCHC (31.0-37.0) g/dL RDW (11.5-15.5) % Neutrophils # (1.3-7.7) k/uL Lymphocytes # (1.0-4.8) k/uL ABG pCO2 (35-45) mmHg ABG pO2 (83-108) mmHg ABG O2 Saturation (94-97) % Hemoglobin (13.0-17.5) gm/dL Potassium (3.5-5.1) mmol/L Chloride (98-107) mmol/L Carbon Dioxide (22-30) mmol/L BUN (9-20) mg/dL Glucose (74-99) mg/dL POC Glucose (mg/dL) 157 H (70-110) mg/dL Calcium (8.4-10.2) mg/dL Phosphorus (2.5-4.5) mg/dL Magnesium (1.6-2.3) mg/dL Procalcitonin (0.02-0.50) ng/mL Microbiology - Last 24 Hours (Table) 12/31/23 14:00 Gram Stain - Preliminary Bronchoalviolar Lavage - Left 12/31/23 14:00 Acid Fast Bacilli Smear - Preliminary Bronchoalviolar Lavage - Left Assessment and Plan Assessment: Abdominal wall versus GI bleeding. The patient encountered acute GI bleeding vs bleeding from the abdominal wall, Abdominal and pelvis CT showing several areas of active extravasation noted on early arterial phase imaging within the superficial post operative ventral abdominal wall. Indeterminate whether this area of bleeding lies within a conglomeration of superficial bowel loop or is within the postoperative abdominal wall. No evidence of bowel obstruction. No evidence of any active bleeding for now. Acute blood loss anemia, secondary to above, 2 units PRBCs transfused and the patient is currently running a stable hemoglobin Acute hypoxic respiratory failure, likely secondary to upper respiratory tract secretions. The patient copious amounts of mucous plugs was underwent bronchoscopy and aspirated from both lungs and a bronchial lavage was also done. Cultures are still pending for now. Overnight, the patient developed severe respiratory acidosis requiring intubation mechanical ventilation. Subsequent blood gases showed improvement in the patient's acid-base status. 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 The patient has been aggressive resuscitative IV fluids and the patient is currently on high-dose norepinephrine and vasopressin physiologic dose. The pressors have been weaned compared to yesterday. The patient remains on norepinephrine and vasopressin physiologic dose. The biotic coverage including combination of Zosyn and vancomycin and Eraxis. Cultures are still pending for now. Electrolyte imbalance with hypomagnesium [place], hypophosphatemia and hypokalemia. Improved and the potassium needs to be further replaced Recent history of ventilator dependent respiratory failure, secondary to pneumonia, microbiology from BAL positive for haemophilus influenzae History of DVT, previously on therapeutic dose of Lovenox, which is currently stopped History of Crohn's disease complicated by bowel perforation status post colectomy and diverting ileostomy. 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 Currently receiving TPN for nutritional support. 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 cardiac asystole/arrest in 2021 History of tracheostomy and reversal Plan: Continue ventilator support, no changes Keep the patient on propofol Continue fluid resuscitation with normal saline at rate of 75 cc an hour Antibiotic coverage with a combination of Zosyn and vancomycin and Eraxis Blood cultures are still pending Check procalcitonin level Monitor hemoglobin Monitor hemodynamics and wean off pressors Continue TPN for nutritional support Monitor hemoglobin Lovenox 40 mg subcu for DVT prophylaxis Protonix twice daily Will continue to monitor and follow-up this patient will do the rest of the consultants. Will give the patient sedation holiday. Not really for weaning or liberating off the mechanical ventilator yet. Further recommendations are to follow. This evaluation was done and more than 30 minutes. This is working progress. Improved and the potassium needs to be further replaced Time with Patient: Greater than 30
[2024-01-02] MEDS: POTAS-SOD-PHOS 280-160-250 MG 1 EACH PACKET PO SCH (13:35)
[2024-01-02] MEDS ORDERED: Potassium Replacement Protocol 1 EACH MISC MISCELLANE PRN ×2 (15:41→20:29)
--- NOTE | 2024-01-02 15:48 | P.PN ---
Subjective Progress Note Date: 01/02/24 Principal diagnosis: Reason for follow-up is sepsis UTI/pneumonia Patient is a 48-year-old male with a past medical history difficult for CVA TIA DVT did have a history of Crohn's disease with bowel perforation requiring ileostomy and also have a enterocutaneous fistula patient initially presentation to the hospital was weakness not feeling well subsequent did have w orsening of the respiratory status requiring intubation did have a fever concerning for possible pneumonia. On today's evaluation that is 01/02/2024, Patient did have low-grade fever of 99.8 F this morning patient remains to be intubated on the vent FiO2 is currently stable at 50% nursing staff mention slightly less amount of pressor support today compared to yesterday did have significant output in his ileostomy and from abdominal fistula. The patient white count is down to 10.7 his creatinine 0.68 bronchial wash showing Staph aureus urine is growing gram-negative Objective - Vital Signs Vital signs: Vital Signs Temp 99.8 F H 01/02/24 08:00 Pulse 80 01/02/24 13:15 Resp 26 H 01/02/24 13:15 BP 125/67 01/02/24 08:45 Pulse Ox 100 01/02/24 13:15 FiO2 50 01/02/24 12:00 Intake & Output 01/01/24 01/02/24 01/02/24 18:59 06:59 18:59 Intake Total 4700.535 8870.185 3201.579 Output Total 4575 3650 965 Balance 125.535 -2254.416 209.579 Weight 96 kg 100.4 kg Intake: IV 900 900 450 Sodium Chloride 0.9% 1, 900 900 450 000 ml @ 75 mls/hr IV . [id number] [facility] Rx#:[id number] Intake, IV Titration 3770.535 495.584 724.579 Amount Anidulafungin 100 mg In 100 Sodium Chloride 0.9% 100 ml @ 84 mls/hr IVPB DAILY [facility] Rx#:[id number] Anidulafungin 200 mg In 200 Sodium Chloride 0.9% 200 ml @ 84 mls/hr IVPB ONCE [facility] Rx#:[id number] Magnesium Sulfate-D5w Pmx 200 1 gm In Dextrose/Water 1 100ml.bag @ 100 mls/hr IVPB Q1H [facility] Rx#: [id number] [facility], Adult No.4 with Vit 440 55 K 10 ml Trace (Conc-1Ml/ Dose) 1 ml Sodium Chloride 4Meq/ml Vial 50 meq Sodium Acetate 50 meq Calcium Gluconate 1 gm Magnesium Sulfate gm 1 gm Potassium Phosphate 15 mmol In Amino Acid 5%- D15w 1,000 ml @ 55 mls/hr IV .[id number] [facility] Rx#: [id number] Norepinephrine 32 mg In 302.513 132.864 40.579 Sodium Chloride 0.9% 218 ml @ 0.03 MCG/KG/MIN 1. 333 mls/hr IV .Q24H [facility] Rx#:[id number] Piperacillin-Tazobactam 3 200 100 .375 gm In Sodium Chloride 0.9% 100 ml @ 25 mls/hr IVPB Q8HR [facility] Rx# :[id number] Potassium Chloride 20 meq 50 In Water For Injection 100 100ml.bag @ 50 mls/hr IVPB Q2H [facility] Rx#: [id number] Potassium Phosphate 10 600 mmol In Sodium Chloride 0 .9% 100 ml @ 50 mls/hr IV Q2H [facility] Rx#:[id number] Sodium Chloride 0.9% 1, 1000 000 ml @ 999 mls/hr IV . Q1H1M [facility] Rx#:[id number] Vancomycin 1,500 mg In 500 334 Sodium Chloride 0.9% 500 ml 500 ml @ 167 mls/hr IVPB Q12H [facility] Rx#: [id number] Vasopressin 20 unit In 69.896 47.048 Sodium Chloride 0.9% 50 ml @ 0.03 UNITS/MIN 4.59 mls/hr IV .Q11H7M [facility] Rx# :[id number] propofoL 1,000 mg In 258.126 260.672 100 Empty Bag 1 bag @ 15 MCG/ KG/MIN 8.532 mls/hr IV . [id number] [facility] Rx#:[id number] Other 30 Output: Gastric Drainage 300 Urine 3475 3200 965 Stool 800 450 Other: Voiding Method Indwelling Catheter Indwelling Catheter ABP, PAP, CO, CI - Last Documented Arterial Blood Pressure 96/52 - Exam GENERAL DESCRIPTION: Middle-age male intubated on the vent RESPIRATORY SYSTEM: Unlabored breathing , decreased breath sounds at bases HEART: S1 S2 regular rate and rhythm , ABDOMEN: Soft , no tenderness EXTREMITIES: Diffuse swelling to the leg no redness, 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 - Labs CBC & Chem 7: 01/02/24 04:50 01/02/24 15:04 Labs: Abnormal Lab Results - Last 24 Hours (Table) 01/01/24 01/01/24 01/01/24 Range/Units 10:35 17:44 20:54 WBC (3.8-10.6) k/uL RBC (4.30-5.90) m/uL Hgb (13.0-17.5) gm/dL Hct (39.0-53.0) % RDW (11.5-15.5) % Neutrophils # (1.3-7.7) k/uL ABG pCO2 (35-45) mmHg ABG pO2 (83-108) mmHg ABG O2 Saturation (94-97) % Hemoglobin (13.0-17.5) gm/dL Potassium (3.5-5.1) mmol/L Chloride (98-107) mmol/L Carbon Dioxide (22-30) mmol/L BUN (9-20) mg/dL Glucose (74-99) mg/dL POC Glucose (mg/dL) 160 H (70-110) mg/dL Phosphorus 2.0 L (2.5-4.5) mg/dL Procalcitonin 1.38 H (0.02-0.50) ng/mL 01/01/24 01/01/24 01/01/24 Range/Units 20:54 20:59 23:34 WBC (3.8-10.6) k/uL RBC (4.30-5.90) m/uL Hgb (13.0-17.5) gm/dL Hct (39.0-53.0) % RDW (11.5-15.5) % Neutrophils # (1.3-7.7) k/uL ABG pCO2 (35-45) mmHg ABG pO2 (83-108) mmHg ABG O2 Saturation (94-97) % Hemoglobin (13.0-17.5) gm/dL Potassium 2.9 L (3.5-5.1) mmol/L Chloride 115 H (98-107) mmol/L Carbon Dioxide 21 L (22-30) mmol/L BUN (9-20) mg/dL Glucose (74-99) mg/dL POC Glucose (mg/dL) 134 H 149 H (70-110) mg/dL Phosphorus (2.5-4.5) mg/dL Procalcitonin (0.02-0.50) ng/mL 01/01/24 01/02/24 01/02/24 Range/Units 23:58 04:50 04:50 WBC 10.7 H (3.8-10.6) k/uL RBC 2.90 L (4.30-5.90) m/uL Hgb 8.1 L (13.0-17.5) gm/dL Hct 25.4 L (39.0-53.0) % RDW 17.2 H (11.5-15.5) % Neutrophils # 8.3 H (1.3-7.7) k/uL ABG pCO2 33 L (35-45) mmHg ABG pO2 117 H (83-108) mmHg ABG O2 Saturation 99.6 H (94-97) % Hemoglobin 8.1 L (13.0-17.5) gm/dL Potassium 2.6 L* (3.5-5.1) mmol/L Chloride 117 H (98-107) mmol/L Carbon Dioxide (22-30) mmol/L BUN 43 H (9-20) mg/dL Glucose 147 H (74-99) mg/dL POC Glucose (mg/dL) (70-110) mg/dL Phosphorus 2.3 L (2.5-4.5) mg/dL Procalcitonin (0.02-0.50) ng/mL 01/02/24 01/02/24 01/02/24 Range/Units 05:45 11:32 11:53 WBC (3.8-10.6) k/uL RBC (4.30-5.90) m/uL Hgb (13.0-17.5) gm/dL Hct (39.0-53.0) % RDW (11.5-15.5) % Neutrophils # (1.3-7.7) k/uL ABG pCO2 (35-45) mmHg ABG pO2 (83-108) mmHg ABG O2 Saturation (94-97) % Hemoglobin (13.0-17.5) gm/dL Potassium (3.5-5.1) mmol/L Chloride (98-107) mmol/L Carbon Dioxide (22-30) mmol/L BUN (9-20) mg/dL Glucose (74-99) mg/dL POC Glucose (mg/dL) 157 H 120 H 117 H (70-110) mg/dL Phosphorus (2.5-4.5) mg/dL Procalcitonin (0.02-0.50) ng/mL Microbiology - Last 24 Hours (Table) 01/01/24 02:01 Blood Culture - Preliminary Blood 01/01/24 02:18 Urine Culture - Preliminary Urine,Catheterized Gram Neg Bacilli 12/31/23 14:00 Gram Stain - Preliminary Bronchoalviolar Lavage - Left 12/31/23 14:00 Acid Fast Bacilli Smear - Preliminary Bronchoalviolar Lavage - Left Assessment and Plan (1) Pneumonia Current Visit: Yes Status: Acute Code(s): J18.9 - PNEUMONIA, UNSPECIFIED ORGANISM SNOMED Code(s): 119872128 (2) Sepsis Current Visit: No Status: Acute Code(s): A41.9 - SEPSIS, UNSPECIFIED ORGANISM SNOMED Code(s): 22233315 Plan: 1patient with sepsis/septic shock in this patient who did have a fever elevated white count high clinical suspicion of possible left lower lobe pneumonia in this patient who did have multiple comorbidities and complicated intra-abdominal history with history of bowel perforation and did have ileostomy and enterocutaneous fistula keeping in mind the patient has been in and out of the hospital we will need to cover for the resistant gram-positive as well as gram- negative pathogen 2-patient bronchial culture growing Staph aureus sensitivities pending urine is growing gram-negative bacilli 3patient is broadly covered with vancomycin Zosyn to continue all waiting for the culture finalized creatinine is currently stable/normal Mother at the bedside questions answered Dictation was produced using [employer] dictation software. please excuse any grammatical, word or spelling errors. Time with Patient: Less than 30
--- NOTE | 2024-01-02 16:04 | P.PN ---
Progress Note - Text Progress Note Date: 01/02/24 CHIEF COMPLAINT: Debility and issues with TPN supplies HISTORY OF PRESENT ILLNESS: Patient remains in the ICU. Patient remains intubated and sedated. Requiring some pressor support. PHYSICAL EXAM: VITAL SIGNS: Reviewed. GENERAL: Well-developed in no acute distress. ABDOMEN: Soft. Nondistended. Ileostomy with brown liquidy stools. No further bleeding. NEUROLOGIC: Alert and oriented. Cranial nerves II through XII grossly intact. ASSESSMENT: 1. Acute GI bleed at the ileostomy site status post suture and cauterization of bleeding vessel bedside 2. History of Crohn's with bowel perforation requiring ileostomy. 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
[2024-01-02 18:05] LABS: Glucose,Whole Blood 115 mg/dL (70-110)
[2024-01-02] MEDS ORDERED: POTASSIUM CHLORIDE ER 20 MEQ TAB.ER PO SCH (21:00)
[2024-01-03 00:37] LABS: Glucose,Whole Blood 104 mg/dL (70-110)
[2024-01-03] MEDS: MVI, ADULT NO.4 WITH VIT K 10 ML, TRACE (CONC-1ML/DOSE) 1 ML, SODIUM CHLORIDE 4MEQ/ML V... IV SCH (01:20)
[2024-01-03 04:48] LABS: Anisocytosis Slight; Basophils % (A) 1 %; Eosinophils # (A) 0.3 k/uL (0-0.7); Eosinophils % (A) 5 %; HCT 24.4 % (39.0-53.0); HGB 7.9 gm/dL (13.0-17.5); Hypochromasia Moderate; Lymphocytes # (A) 1.3 k/uL (1.0-4.8); Lymphocytes % (A) 23 %; MCH 28.2 pg (25.0-35.0); MCHC 32.4 g/dL (31.0-37.0); MCV 87.2 fL (80.0-100.0); Mean Platelet Volume 10.6; Monocytes # (A) 0.3 k/uL (0-1.0); Monocytes % (A) 5 %; Neutrophils # (A) 3.9 k/uL (1.3-7.7); Neutrophils % (A) 66 %; Platelet Count 281 k/uL (150-450); Poikilocytosis Slight; RDW 17.3 % (11.5-15.5)
[2024-01-03 05:02] LABS: African American GFR (CKD) >90 (>60 ml/min/1.73 sqM); Anion Gap 1 mmol/L; Blood Urea Nitrogen 26 mg/dL (9-20); Calcium 7.9 mg/dL (8.4-10.2); Carbon Dioxide 24 mmol/L (22-30); Chloride 117 mmol/L (98-107); Glucose 103 mg/dL (74-99); Non-African American GFR(CKD) >90 (>60 ml/min/1.73 sqM); Phosphorus 2.2 mg/dL (2.5-4.5); Potassium 3.2 mmol/L (3.5-5.1); Sodium 142 mmol/L (137-145)
[2024-01-03 05:26] LABS: ABG Base Excess 0.7 mmol/L; ABG HCO3 25 mmol/L (21-25); ABG Oxygen Saturation 91.7 % (94-97); ABG PCO2 35 mmHg (35-45); ABG PH 7.45 (7.35-7.45); ABG TCO2 26 mmol/L (19-24)
[2024-01-03 05:29] LABS: ABG PO2 55 mmHg (83-108)
[2024-01-03] MEDS ORDERED: Potassium Replacement Protocol 1 EACH MISC MISCELLANE PRN (05:30)
[2024-01-03] MEDS ORDERED: Magnesium Replacement Protocol 1 EACH MISC MISCELLANE PRN (05:36)
[2024-01-03] MEDS ORDERED: Phosphorus Replacement Protoco 1 EACH MISC MISCELLANE PRN (05:36)
[2024-01-03] MEDS: POTASSIUM BICARBONATE/CIT AC 20 MEQ TABLET.EFF NG-TUBE SCH ×2 (05:38→15:01)
[2024-01-03 05:56] LABS: Glucose,Whole Blood 104 mg/dL (70-110)
[2024-01-03] MEDS: MAGNESIUM SULFATE-D5W PMX 1 GM in DEXTROSE/WATER 1 100ML.BAG IVPB ONE (06:23)
[2024-01-03] MEDS: POTAS-SOD-PHOS 280-160-250 MG 1 EACH PACKET PO ONE (06:36)
--- NOTE | 2024-01-03 07:26 | XR ---
EXAMINATION TYPE: XR chest 1V portable DATE OF EXAM: 01/03/2024 5:44 AM CLINICAL INDICATION: Male, 48 years old with history of Tube placement; [facility] COMPARISON: Chest radiograph from one day prior. TECHNIQUE: XR chest 1V portable Frontal view of the chest. FINDINGS: Lungs/Pleura: Resolution of right midlung airspace opacities from prior.. Left basilar airspace opaci ties. There is no evidence of pleural effusion, or pneumothorax. Pulmonary vascularity: Unremarkable. Heart/mediastinum: Cardiomediastinal silhouette is unremarkable. Musculoskeletal: No acute osseous pathology. Other findings: None Lines/Tubes: Endotracheal tube with distal tip 5.3 cm above the avery. Nasogastric tube with its distal tip and side-port projecting under the diaphragm. [id number] projecting over the left hemithorax with distal tip at the cavoatrial junction. IMPRESSION: Similar, left basilar atelectasis and/or airspace disease. Right midlung have airspace opacities have resolved. Attention on follow-up imaging.. [facility], , 01/03/2024 7:24 AM
[2024-01-03] MEDS: VANCOMYCIN TROUGH DUE 1 EACH MISC MISCELLANE ONE (09:43)
[2024-01-03 11:55] LABS: Glucose,Whole Blood 85 mg/dL (70-110)
--- NOTE | 2024-01-03 13:02 | P.PN ---
Subjective Progress Note Date: 01/03/24 Patient is a 48-year-old male with complex past medical history including CVA, previous DVTs, right BKA, cardiac arrest in 2021, Crohn's disease, enterocutaneous fistulas, previous bowel resection. More recently, patient was admitted 12/13/2023 through 12/25/2023 for pneumonia and respiratory failure due to mucous plugging. He was intubated and placed on mechanical ventilator for approximately 6 days. He did have a bronchoscopy with BAL, microbiology positive for haemophilus influenza. Completed his antibiotics. Was discharged home. Unable to get supplies/TPN on discharge, and returned back to the emergency department on 12/26/2023. He was admitted, and while on the general medical floor. Noted to have some bleeding from his ostomy per the RN. This progressively became more copious, is currently dark red with clots. Previously on therapeutic dose of Lovenox, and this has been stopped. Dr. Munoz is aware of this patient, and he did receive 2 L fluid bolus earlier in the day yesterday. Patient is now hypotensive and symptomatic. 2 units of PRBCs are pending. General surgery is consulted and aware. Hemoglobin has dropped from 13.7 on admission, and is currently 9.8 g/dL. Abdominal and pelvis CT showing several areas of active extravasation noted on early arterial phase imaging within the superficial post operative ventral abdominal wall. Indeterminate whether this area of bleeding lies within a conglomeration of superficial bowel loop or is within the postoperative abdominal wall. No evidence of bowel obstruction. Also, dense bibasilar consolidations noted in the lower lobes. Remainder of patient's CBC includes a WBC count 9.1, hemoglobin 9.8, hematocrit 31.6, plat elets 361. Coags include a PT of 11.2, INR of 1, PTT of 28.4. Most recent BMP: Sodium 126, potassium 6.1, chloride 102, serum bicarb 17, BUN 102, creatinine 1, glucose 203. Hyperkalemia was treated with Lokelma, and is currently down to 5.8 g/dL. Patient is currently being evaluated in the intensive care unit. He is resting comfortably on room air. Alert and oriented x 3. Cold and diaphoretic. Blood pressure hypotensive, despite receiving an additional 1 L fluid bolus. Patient is going to be started on norepinephrine until blood products become available. Continues to have large volume dark blood with blood clots. No nausea or vomiting or hematemesis. No abdominal pain. General surgery currently evaluating patient, and recommendations to follow. On 12/31/2023, the patient is is being seen for a follow-up. No evidence of any bleeding from the abdominal wall. Nevertheless, the patient has a very weak congested cough unable to bring up much sputum. Initially was on 5 L of oxygen by nasal cannula and later on during the day he decompensated and currently is on Airvo in addition to 100% nonrebreather facemask. Obviously, the patient is having upper respiratory secretions and the patient will need a bronchoscopy. Chest x-ray showing smaller lung volumes. No evidence of any acute pulmonary filtration. The patient remains on normal citrate of 75 cc an hour. The patient is on TPN at a rate of 120 cc an hour. Norepinephrine is running at 0.06 mcg/kg/min. He is lethargic and arousable and able to communicate. Family is at the bedside. The white cell count is 15 with a hemoglobin 10.2 and a platelet count of 309. BUN is 105 with a creatinine of 1.04 and a sodium level is at 132 and a potassium level of 4.3 and a bicarb of 17. The patient is on TPN for nutritional support. On 01/01/2024, patient is being seen for a follow-up. Overnight, the patient went into respiratory failure and his blood gas showed severe respiratory acidosis. Noted the patient had extensive mucous plugging and required bronchoscopy yesterday with removal of approximately 30 cc of vascular secretions were essentially purulent. Post bronchoscopy, the patient became hypotensive and sepsis was suspected and the patient accordingly was placed on a combination of Zosyn and vancomycin. Cultures are still pending. Eraxis was also added to broaden antibiotic coverage. The patient this morning is on normal saline at rate of 75 cc an hour. Received a total of 3 L of IV fluid yes terday. Norepinephrine is running at 0.45 mcg/kg/min and the patient is also on vasopressin physiologic dose anteriorly and TPN running at 120 cc an hour. He is currently on assist-control mode of mechanical ventilation. He is sedated with propofol at rate of 40 mcg/kg/min. He is on a tidal volume of 450, rate of 26, FiO2 100% and a PEEP of 5. Blood gas showed a pH of 7.21 with a pCO2 of 42 and pO2 of 88. Chest x-ray shows atelectatic changes in lung bases bilaterally. Phosphorus level was 0.9. Magnesium level is at 1.9. Those need to be replaced. BUN is 82 with a creatinine of 0.9 and sodium levels at 142 with a potassium level of 2.7. WBC count 17.1 with a hemoglobin of 7.8 and a platelet count of 325. 01/02/2024, the patient remains intubated on mechanical ventilator. The patient remains on propofol which is running at 50 mcg/kg/min. The patient is adequately sedated and synchronous with mechanical ventilator. Started on assist-control mode with rate of 26, tidal volume of 450, FiO2 of 50% with a PEEP of 5. Blood gas showed pH of 7.44 with pCO2 of 33 and pO2 of 117. Chest x-ray showed atelectatic changes lung base bilaterally. At the same time, the patient remains on normal saline at rate of 75 cc an hour. He received a total of 4 L of normal saline yesterday. He also is receiving TPN at rate of 55 cc an hour. Norepinephrine is running at 0.19 mcg/min and this has been titrated compared to yesterday and the patient remains on vasopressin 0.03 units an hour. He is afebrile. Antibiotic coverage including combination of Zosyn and vancomycin and Eraxis. Renal function is stable. The patient has no active bleeding from the abdominal wall. The stool was checked for C. difficile and was negative. Sodium is 142, potassium is 2.6, BUN is 43 with a creatinine 0.68. WBC count of 10.7 with a hemoglobin of 8.1 and platelet count of 287. 01/03/2024, the patient is being seen for a follow-up. Remains intubated on the mechanical ventilator. He is on propofol at 50 mcg/kg/min. Nevertheless, he is arousable and is following simple commands even while being on propofol. Chest x-ray shows atelectatic changes in lung base bilaterally. The patient remains on the mechanical ventilator, and he remains essentially on the same ventilator setting which includes an assist-control mode with a tidal volume of 450, rate of 26, FiO2 for 50% and a PEEP of 5. Blood gas showed a pH of 7.45 with a pCO2 of 35 and pO2 of 55. I performed another bedside bronchoscopy and another 15 cc of purulent material was aspirated from the lung bases bilaterally. The bronchial lavage that was collected earlier showed MRSA. Urine culture was also positive for Klebsiella pneumoniae and the patient remains on a combination of Zosyn and vancomycin. Pressor requirements have improved compared to yesterday. The patient remains on norepinephrine running at 0.06 mcg/kg/min. He is also on vasopressin physiologic dose. He is on normal citrate of 50 cc an hour. TPN is running at rate of 55 cc an hour. Blood cultures negative. No active bleeding from his ileostomy or enterocutaneous fistulas. Objective - Vital Signs Vital signs: Vital Signs Temp 98.9 F 01/03/24 04:00 Pulse 71 01/03/24 08:28 Resp 26 H 01/03/24 07:00 BP 125/67 01/02/24 08:45 Pulse Ox 98 01/03/24 07:00 FiO2 50 01/03/24 08:08 Intake & Output 01/02/24 01/03/24 01/03/24 18:59 06:59 18:59 Intake Total 0712.306 4150.131 213 Output Total 2230 2415 35 Balance -497.470 -500.869 178 Weight 103.6 kg Intake: IV 450 1203 63 0.9% KVO 80 10 0.9% NS Pressure Bag 33 3 Magnesium Sulfate-D5w Pmx 100 1 gm In Dextrose/Water 1 100ml.bag @ 100 mls/hr IVPB ONCE ONE Rx#: [id number] Mvi, Adult No.4 with Vit 440 K 10 ml Trace (Conc-1Ml/ Dose) 1 ml Sodium Chloride 4Meq/ml Vial 50 meq Sodium Acetate 50 meq Calcium Gluconate 1 gm Magnesium Sulfate gm 1 gm Potassium Phosphate 15 mmol In Amino Acid 5%- D15w 1,000 ml @ 55 mls/hr IV .[id number] [facility] Rx#: [id number] Sodium Chloride 0.9% 1, 550 50 000 ml @ 50 mls/hr IV . Q20H [facility] Rx#:[id number] Sodium Chloride 0.9% 1, 450 000 ml @ 75 mls/hr IV . [id number] [facility] Rx#:[id number] Intake, IV Titration 1282.530 441.131 Amount Anidulafungin 100 mg In 100 Sodium Chloride 0.9% 100 ml @ 84 mls/hr IVPB DAILY [facility] Rx#:[id number] Norepinephrine 32 mg In 72.530 50.667 Sodium Chloride 0.9% 218 ml @ 0.03 MCG/KG/MIN 1. 333 mls/hr IV .Q24H [facility] Rx#:[id number] Piperacillin-Tazobactam 3 175 25 .375 gm In Sodium Chloride 0.9% 100 ml @ 25 mls/hr IVPB Q8HR [facility] Rx# :[id number] Potassium Chloride 20 meq 50 In Water For Injection 100 100ml.bag @ 50 mls/hr IVPB Q2H [facility] Rx#: [id number] Sodium Chloride 0.9% 1, 300 50 000 ml @ 50 mls/hr IV . Q20H [facility] Rx#:[id number] Vancomycin 1,500 mg In 334 Sodium Chloride 0.9% 500 ml 500 ml @ 167 mls/hr IVPB Q12H [facility] Rx#: [id number] Vasopressin 20 unit In 51 51 Sodium Chloride 0.9% 50 ml @ 0.03 UNITS/MIN 4.59 mls/hr IV .[id number] [facility] Rx# :[id number] propofoL 1,000 mg In 200 264.464 Empty Bag 1 bag @ 15 MCG/ KG/MIN 8.532 mls/hr IV . [id number] [facility] Rx#:[id number] Oral 150 150 Other 120 Output: Gastric Drainage 100 Urine 1530 815 35 Stool 600 1600 Other: Voiding Method Indwelling Catheter Indwelling Catheter ABP, PAP, CO, CI - Last Documented Arterial Blood Pressure 113/53 - Exam GENERAL EXAM: 48-year-old male, arousable on propofol, intubated on the mechanical ventilator currently on assist-control mode of mechanical ventilation. HEAD: Normocephalic and atraumatic EYES: Normal reaction of pupils, equal size. NOSE: Clear with pink turbinates. THROAT: No erythema or exudates. NECK: No masses, no JVD. CHEST: No chest wall deformity. Left subclavian double-lumen central line LUNGS: Equal air entry with no crackles, wheeze, rhonchi or dullness. On room air. No conversational dyspnea or accessory muscle use.. CVS: S1 and S2 normal with no audible murmur, regular rhythm. No extra heart sounds ABDOMEN: Ileostomy with brown stool, no evidence of any bleeding.. Bowel sounds present. Abdomen is soft and nontender. No organomegaly. SPINE: No scoliosis or deformity SKIN: No rashes CENTRAL NERVOUS SYSTEM: Sedated on propofol. EXTREMITIES: Right BKA, left leg weakness and left foot drop, remaining distal pulses are weak and only found with Doppler. Extremities are showing diminished pulses bilaterally otherwise no significant cyanosis. - Labs CBC & Chem 7: 01/03/24 04:30 01/03/24 11:50 Labs: Abnormal Lab Results - Last 24 Hours (Table) 01/02/24 01/02/24 01/02/24 Range/Units 11:32 11:53 15:04 RBC (4.30-5.90) m/uL Hgb (13.0-17.5) gm/dL Hct (39.0-53.0) % RDW (11.5-15.5) % ABG pO2 (83-108) mmHg ABG Total CO2 (19-24) mmol/L ABG O2 Saturation (94-97) % Hemoglobin (13.0-17.5) gm/dL Potassium 3.2 L (3.5-5.1) mmol/L Chloride (98-107) mmol/L BUN (9-20) mg/dL Creatinine (0.66-1.25) mg/dL Glucose (74-99) mg/dL POC Glucose (mg/dL) 120 H 117 H (70-110) mg/dL Calcium (8.4-10.2) mg/dL Phosphorus (2.5-4.5) mg/dL 01/02/24 01/02/24 01/03/24 Range/Units 18:02 19:06 00:18 RBC (4.30-5.90) m/uL Hgb (13.0-17.5) gm/dL Hct (39.0-53.0) % RDW (11.5-15.5) % ABG pO2 55 L* (83-108) mmHg ABG Total CO2 26 H (19-24) mmol/L ABG O2 Saturation 91.7 L (94-97) % Hemoglobin 7.8 L (13.0-17.5) gm/dL Potassium 3.3 L (3.5-5.1) mmol/L Chloride (98-107) mmol/L BUN (9-20) mg/dL Creatinine (0.66-1.25) mg/dL Glucose (74-99) mg/dL POC Glucose (mg/dL) 115 H (70-110) mg/dL Calcium (8.4-10.2) mg/dL Phosphorus (2.5-4.5) mg/dL 01/03/24 01/03/24 Range/Units 04:30 04:30 RBC 2.80 L (4.30-5.90) m/uL Hgb 7.9 L (13.0-17.5) gm/dL Hct 24.4 L (39.0-53.0) % RDW 17.3 H (11.5-15.5) % ABG pO2 (83-108) mmHg ABG Total CO2 (19-24) mmol/L ABG O2 Saturation (94-97) % Hemoglobin (13.0-17.5) gm/dL Potassium 3.2 L (3.5-5.1) mmol/L Chloride 117 H (98-107) mmol/L BUN 26 H (9-20) mg/dL Creatinine 0.58 L (0.66-1.25) mg/dL Glucose 103 H (74-99) mg/dL POC Glucose (mg/dL) (70-110) mg/dL Calcium 7.9 L (8.4-10.2) mg/dL Phosphorus 2.2 L (2.5-4.5) mg/dL Microbiology - Last 24 Hours (Table) 12/31/23 14:00 Gram Stain - Final Bronchoalviolar Lavage - Left Bronchial Washings Culture - Final Methicillin resist S. aureus 01/01/24 02:01 Blood Culture - Preliminary Blood 01/01/24 02:18 Urine Culture - Preliminary Urine,Catheterized Gram Neg Bacilli Assessment and Plan Assessment: Abdominal wall versus GI bleeding. The patient encountered acute GI bleeding vs bleeding from the abdominal wall, Abdominal and pelvis CT showing several areas of active extravasation noted on early arterial phase imaging within the superficial post operative ventral abdominal wall. Indeterminate whether this area of bleeding lies within a conglomeration of superficial bowel loop or is within the postoperative abdominal wall. No evidence of bowel obstruction. No evidence of any active bleeding for now. Acute blood loss anemia, secondary to above, 2 units PRBCs transfused and the patient is currently running a stable hemoglobin Acute hypoxic respiratory failure, with bilateral pneumonia in the lung bases/atelectasis and the bronchial lavage that was done earlier was positive for MRSA. 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 The patient remains on norepinephrine and vasopressin physiologic dose. The pressor requirements have improved and the patient has been adequately resuscitated IV fluids Electrolyte imbalance with hypomagnesium [place], hypophosphatemia and hypokalemia. Improved and the potassium needs to be further replaced Recent history of ventilator dependent respiratory failure, secondary to pneumonia, microbiology from BAL positive for haemophilus influenzae History of DVT, previously on therapeutic dose of Lovenox, which is currently stopped History of Crohn's disease complicated by bowel perforation status post colectomy and diverting ileostomy. 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 Currently receiving TPN for nutritional support. 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 cardiac asystole/arrest in 2021 History of tracheostomy and reversal Plan: Continue ventilator support, will drop respiratory rate down to 16 Bronchoscopy was completed for therapeutic airway suctioning The patient will be taken off sedation and will check weaning parameters and assess candidacy to wean and if the weaning parameters are adequate the patient will be given a spontaneous breathing trial and anticipation for possible extubation today. Change IV fluids normal saline at rate of 50 cc an hour Antibiotic coverage with a combination of Zosyn and vancomycin Discontinue Eraxis as the patient's blood cultures were negative Monitor hemoglobin Monitor hemodynamics and wean off pressors Continue TPN for nutritional support Monitor hemoglobin Lovenox 40 mg subcu for DVT prophylaxis Protonix twice daily Will continue to monitor and follow-up this patient will do the rest of the consultants. Further recommendations are to follow. This evaluation was done and more than 30 minutes. This is working progress. Time with Patient: Greater than 30
--- NOTE | 2024-01-03 13:36 | P.PN ---
Subjective patient is seen for follow-up for acute kidney injury Maintained on normal saline along with TPN. patient remains on the vent. He is awake and responds appropriately. Pressors have been decreased. Urine output at 50 mL an hour. Serum creatinine down to 0.58. Objective - Vital Signs Vital signs: Vital Signs Temp 98.8 F 01/03/24 12:00 Pulse 76 01/03/24 13:15 Resp 21 01/03/24 13:15 BP 125/67 01/02/24 08:45 Pulse Ox 99 01/03/24 13:15 FiO2 50 01/03/24 12:00 Intake & Output 01/02/24 01/03/24 01/03/24 18:59 06:59 18:59 Intake Total 8887.493 0806.131 488.348 Output Total 2230 2415 315 Balance -497.470 -500.869 173.348 Weight 103.6 kg 103.6 kg Intake: IV 450 1203 141 0.9% KVO 80 70 0.9% NS Pressure Bag 33 21 Magnesium Sulfate-D5w Pmx 100 1 gm In Dextrose/Water 1 100ml.bag @ 100 mls/hr IVPB ONCE ONE Rx#: [id number] Mvi, Adult No.4 with Vit 440 K 10 ml Trace (Conc-1Ml/ Dose) 1 ml Sodium Chloride 4Meq/ml Vial 50 meq Sodium Acetate 50 meq Calcium Gluconate 1 gm Magnesium Sulfate gm 1 gm Potassium Phosphate 15 mmol In Amino Acid 5%- D15w 1,000 ml @ 55 mls/hr IV .[id number] [facility] Rx#: [id number] Sodium Chloride 0.9% 1, 550 50 000 ml @ 50 mls/hr IV . Q20H [facility] Rx#:[id number] Sodium Chloride 0.9% 1, 450 000 ml @ 75 mls/hr IV . [id number] [facility] Rx#:[id number] Intake, IV Titration 1282.530 441.131 197.348 Amount Anidulafungin 100 mg In 100 Sodium Chloride 0.9% 100 ml @ 84 mls/hr IVPB DAILY [facility] Rx#:[id number] Norepinephrine 32 mg In 72.530 50.667 26.959 Sodium Chloride 0.9% 218 ml @ 0.03 MCG/KG/MIN 1. 333 mls/hr IV .Q24H [facility] Rx#:[id number] Piperacillin-Tazobactam 3 175 25 .375 gm In Sodium Chloride 0.9% 100 ml @ 25 mls/hr IVPB Q8HR [facility] Rx# :[id number] Potassium Chloride 20 meq 50 In Water For Injection 100 100ml.bag @ 50 mls/hr IVPB Q2H [facility] Rx#: [id number] Sodium Chloride 0.9% 1, 300 50 000 ml @ 50 mls/hr IV . Q20H [facility] Rx#:[id number] Vancomycin 1,500 mg In 334 Sodium Chloride 0.9% 500 ml 500 ml @ 167 mls/hr IVPB Q12H [facility] Rx#: [id number] Vasopressin 20 unit In 51 51 Sodium Chloride 0.9% 50 ml @ 0.03 UNITS/MIN 4.59 mls/hr IV .[id number] [facility] Rx# :[id number] propofoL 1,000 mg In 200 264.464 170.389 Empty Bag 1 bag @ 15 MCG/ KG/MIN 8.532 mls/hr IV . [id number] [facility] Rx#:[id number] Oral 150 150 Other 120 Output: Gastric Drainage 100 Urine 1530 815 315 Stool 600 1600 Other: Voiding Method Indwelling Catheter Indwelling Catheter Indwelling Catheter ABP, PAP, CO, CI - Last Documented Arterial Blood Pressure 114/54 - Exam patient is awake and on the vent. Examination of the heart S1 and S2 Examination of the lungs bilateral breath sounds are heard Abdomen is soft obese nontender, ileostomy right BKA noted Atrophy of lower extremities noted. edema noted 1+ bilateral - Labs CBC & Chem 7: 01/03/24 04:30 01/03/24 11:50 Labs: Abnormal Lab Results - Last 24 Hours (Table) 01/02/24 01/02/24 01/02/24 Range/Units 15:04 18:02 19:06 RBC (4.30-5.90) m/uL Hgb (13.0-17.5) gm/dL Hct (39.0-53.0) % RDW (11.5-15.5) % ABG pO2 (83-108) mmHg ABG Total CO2 (19-24) mmol/L ABG O2 Saturation (94-97) % Hemoglobin (13.0-17.5) gm/dL Potassium 3.2 L 3.3 L (3.5-5.1) mmol/L Chloride (98-107) mmol/L BUN (9-20) mg/dL Creatinine (0.66-1.25) mg/dL Glucose (74-99) mg/dL POC Glucose (mg/dL) 115 H (70-110) mg/dL Calcium (8.4-10.2) mg/dL Phosphorus (2.5-4.5) mg/dL 01/03/24 01/03/24 01/03/24 Range/Units 00:18 04:30 04:30 RBC 2.80 L (4.30-5.90) m/uL Hgb 7.9 L (13.0-17.5) gm/dL Hct 24.4 L (39.0-53.0) % RDW 17.3 H (11.5-15.5) % ABG pO2 55 L* (83-108) mmHg ABG Total CO2 26 H (19-24) mmol/L ABG O2 Saturation 91.7 L (94-97) % Hemoglobin 7.8 L (13.0-17.5) gm/dL Potassium 3.2 L (3.5-5.1) mmol/L Chloride 117 H (98-107) mmol/L BUN 26 H (9-20) mg/dL Creatinine 0.58 L (0.66-1.25) mg/dL Glucose 103 H (74-99) mg/dL POC Glucose (mg/dL) (70-110) mg/dL Calcium 7.9 L (8.4-10.2) mg/dL Phosphorus 2.2 L (2.5-4.5) mg/dL Microbiology - Last 24 Hours (Table) 01/01/24 02:01 Blood Culture - Preliminary Blood 01/01/24 02:18 Urine Culture - Final Urine,Catheterized Klebsiella pneumoniae 12/31/23 14:00 Gram Stain - Final Bronchoalviolar Lavage - Left Bronchial Washings Culture - Final Methicillin resist S. aureus Assessment and Plan Assessment: 1. Acute kidney injury, nonoliguric, related to hypotension. UA is benign. Maintained on IV fluids. BUN disproportionately elevated from GI bleed 2. Hypovolemic hyponatremia, improved with saline. 3. Metabolic acidosis secondary to acute kidney injury 4. History of Crohn's disease and bowel perforations currently on TPN. History of ileostomy 5. Hyperkalemia associated with acute kidney injury and GI bleed, resolved potassium is now low. 6. Acute GI bleed 7. Acute hypoxic respiratory failure Plan: continue antibiotics continue with saline, decreased dose to 50 ML per hour Replace potassium and phosphorus
--- NOTE | 2024-01-03 14:54 | P.PCN ---
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 Procedure(s) Performed: Flexible bronchoscopy Anesthesia: Intubated , on Propofol Surgeon: Estela Holt Pathology: other Condition: critical Disposition: ICU Operative Findings: Flexible bronchoscopy was done in the intensive care unit. The patient was sedated with propofol, intubated on the mechanical ventilator An adapter was attached to the orotracheal tube and following that the disposable flexible bronchoscope was inserted to the orotracheal tube and was advanced to the lower airway. The amount of respiratory secretions were obviously less compared to the early bronchoscopy that was done on 12/31/2023. This procedure was done to optimize respiratory status in preparation for possible extubation today. A full airway examination was done. There was tracheobronchomalacia. There was some respiratory secretions retained throughout the airways specially lower lobes bilaterally. The lower lobe segments were all atelectatic. Therapeutic airway suctioning was done. . Inspected airways included the trachea, bilateral mainstem bronchi, right upper lobe bronchus right middle lobe bronchus right lower lobe bronchus left upper lobe bronchus and left lower lobe bronchus along with the various segments and subsegments. At the completion of the procedure, all of the respiratory secretions were suctioned out without any major difficulties. Total amount of mucus that was suctioned from the patient's airway was in order of 15 cc. Airway patency was restored. The flexible bronchoscope was removed. The collected bronchial aspirate will be sent for microbial cultures again. Patient tolerated the procedure without any major difficulties.
--- NOTE | 2024-01-03 14:54 | P.PN ---
Subjective Progress Note Date: 01/03/24 Principal diagnosis: Reason for follow-up is sepsis UTI/pneumonia Patient is a 48-year-old male with a past medical history difficult for CVA TIA DVT did have a history of Crohn's disease with bowel perforation requiring ileostomy and also have a enterocutaneous fistula patient initially presentation to the hospital was weakness not feeling well subsequent did have w orsening of the respiratory status requiring intubation did have a fever concerning for possible pneumonia. On today's evaluation that is 01/03/2024,the patient did have a fever of 100.5 F at midnight the patient is afebrile since then patient is requiring less pressor support as reported by the nursing staff patient denies requiring 50% FiO2 did have some secretions through the ET and plan is for repeat bronchoscopy this afternoon by pulmonary. Patient white count normalized to 6.0, creatinine 0.58 bronchial wash grew MRSA urine is growing Klebsiella pneumoniae that is sensitive to Unasyn Objective - Vital Signs Vital signs: Vital Signs Temp 98.8 F 01/03/24 12:00 Pulse 79 01/03/24 12:45 Resp 29 H 01/03/24 12:45 BP 125/67 01/02/24 08:45 Pulse Ox 100 01/03/24 12:45 FiO2 50 01/03/24 12:00 Intake & Output 01/02/24 01/03/24 01/03/24 18:59 06:59 18:59 Intake Total 7031.435 9742.131 438.885 Output Total 2230 2415 225 Balance -497.470 -500.869 213.885 Weight 103.6 kg 103.6 kg Intake: IV 450 1203 115 0.9% KVO 80 50 0.9% NS Pressure Bag 33 15 Magnesium Sulfate-D5w Pmx 100 1 gm In Dextrose/Water 1 100ml.bag @ 100 mls/hr IVPB ONCE ONE Rx#: [id number] Mvi, Adult No.4 with Vit 440 K 10 ml Trace (Conc-1Ml/ Dose) 1 ml Sodium Chloride 4Meq/ml Vial 50 meq Sodium Acetate 50 meq Calcium Gluconate 1 gm Magnesium Sulfate gm 1 gm Potassium Phosphate 15 mmol In Amino Acid 5%- D15w 1,000 ml @ 55 mls/hr IV .[id number] [facility] Rx#: [id number] Sodium Chloride 0.9% 1, 550 50 000 ml @ 50 mls/hr IV . Q20H [facility] Rx#:[id number] Sodium Chloride 0.9% 1, 450 000 ml @ 75 mls/hr IV . [id number] [facility] Rx#:[id number] Intake, IV Titration 1282.530 441.131 173.885 Amount Anidulafungin 100 mg In 100 Sodium Chloride 0.9% 100 ml @ 84 mls/hr IVPB DAILY [facility] Rx#:[id number] Norepinephrine 32 mg In 72.530 50.667 26.959 Sodium Chloride 0.9% 218 ml @ 0.03 MCG/KG/MIN 1. 333 mls/hr IV .Q24H [facility] Rx#:[id number] Piperacillin-Tazobactam 3 175 25 .375 gm In Sodium Chloride 0.9% 100 ml @ 25 mls/hr IVPB Q8HR [facility] Rx# :[id number] Potassium Chloride 20 meq 50 In Water For Injection 100 100ml.bag @ 50 mls/hr IVPB Q2H [facility] Rx#: [id number] Sodium Chloride 0.9% 1, 300 50 000 ml @ 50 mls/hr IV . Q20H [facility] Rx#:[id number] Vancomycin 1,500 mg In 334 Sodium Chloride 0.9% 500 ml 500 ml @ 167 mls/hr IVPB Q12H [facility] Rx#: [id number] Vasopressin 20 unit In 51 51 Sodium Chloride 0.9% 50 ml @ 0.03 UNITS/MIN 4.59 mls/hr IV .[id number] [facility] Rx# :[id number] propofoL 1,000 mg In 200 264.464 146.926 Empty Bag 1 bag @ 15 MCG/ KG/MIN 8.532 mls/hr IV . 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 - Labs CBC & Chem 7: 01/03/24 04:30 01/03/24 11:50 Labs: Abnormal Lab Results - Last 24 Hours (Table) 01/02/24 01/02/24 01/02/24 Range/Units 15:04 18:02 19:06 RBC (4.30-5.90) m/uL Hgb (13.0-17.5) gm/dL Hct (39.0-53.0) % RDW (11.5-15.5) % ABG pO2 (83-108) mmHg ABG Total CO2 (19-24) mmol/L ABG O2 Saturation (94-97) % Hemoglobin (13.0-17.5) gm/dL Potassium 3.2 L 3.3 L (3.5-5.1) mmol/L Chloride (98-107) mmol/L BUN (9-20) mg/dL Creatinine (0.66-1.25) mg/dL Glucose (74-99) mg/dL POC Glucose (mg/dL) 115 H (70-110) mg/dL Calcium (8.4-10.2) mg/dL Phosphorus (2.5-4.5) mg/dL 01/03/24 01/03/24 01/03/24 Range/Units 00:18 04:30 04:30 RBC 2.80 L (4.30-5.90) m/uL Hgb 7.9 L (13.0-17.5) gm/dL Hct 24.4 L (39.0-53.0) % RDW 17.3 H (11.5-15.5) % ABG pO2 55 L* (83-108) mmHg ABG Total CO2 26 H (19-24) mmol/L ABG O2 Saturation 91.7 L (94-97) % Hemoglobin 7.8 L (13.0-17.5) gm/dL Potassium 3.2 L (3.5-5.1) mmol/L Chloride 117 H (98-107) mmol/L BUN 26 H (9-20) mg/dL Creatinine 0.58 L (0.66-1.25) mg/dL Glucose 103 H (74-99) mg/dL POC Glucose (mg/dL) (70-110) mg/dL Calcium 7.9 L (8.4-10.2) mg/dL Phosphorus 2.2 L (2.5-4.5) mg/dL Microbiology - Last 24 Hours (Table) 01/01/24 02:01 Blood Culture - Preliminary Blood 01/01/24 02:18 Urine Culture - Final Urine,Catheterized Klebsiella pneumoniae 12/31/23 14:00 Gram Stain - Final Bronchoalviolar Lavage - Left Bronchial Washings Culture - Final Methicillin resist S. aureus Assessment and Plan (1) Pneumonia Current Visit: Yes Status: Acute Code(s): J18.9 - PNEUMONIA, UNSPECIFIED ORGANISM SNOMED Code(s): 246897080 (2) Sepsis Current Visit: No Status: Acute Code(s): A41.9 - SEPSIS, UNSPECIFIED ORGANISM SNOMED Code(s): 11149762 Plan: 1patient with sepsis/septic shock in this patient who did have a fever elevated white count high clinical suspicion of possible left lower lobe pneumonia in this patient who did have multiple comorbidities and complicated intra-abdominal history with history of bowel perforation and did have ileostomy and enterocutaneous fistula keeping in mind the patient has been in and out of the hospital we will need to cover for the resistant gram-positive as well as gram- negative pathogen 2-patient bronchial culture grew MRSA urine is growing Klebsiella that is sensitive to Unasyn 3patient white count has normalized fever pattern has improved we will continue vancomycin to cover for his MRSA pneumonia however we will switch Zosyn to Unasyn to cover for the Klebsiella and decrease risk of nephrotoxicity Dictation was produced using [email or web address] dictation software. please excuse any gr ammatical, word or spelling errors. Time with Patient: Less than 30
--- NOTE | 2024-01-03 15:12 | P.PN ---
Subjective Progress Note Date: 01/03/24 CHIEF COMPLAINT: Debility and issues with TPN supplies HISTORY OF PRESENT ILLNESS: Patient remains in the ICU. Patient is intubated and on mechanical ventilation. They are trying to wean patient from the vent today. He had a bronchoscopy earlier this morning. He has had no further bleeding from the ileostomy. WBC 6.0 hemoglobin stable at 7.9 platelets 281 PHYSICAL EXAM: VITAL SIGNS: Reviewed. GENERAL: Well-developed in no acute distress. ABDOMEN: Soft. Nondistended. Ileostomy with brown liquidy stools. No further bleeding. NEUROLOGIC: awake ASSESSMENT: 1. Acute GI bleed at the ileostomy site status post suture and cauterization of bleeding vessel by surgeon 2. History of Crohn's with bowel perforation requiring ileostomy. Also has 2 enterocutaneous fistulas on his anterior abdominal wall PLAN: -Continue ICU management and supportive care -Patient has had no further bleeding at ileostomy site -Continue TPN for nutrition support -Continue to monitor hemoglobin Physician Cardroom Plastic Card Grader note has been reviewed by physician. Signing provider agrees with the documented findings, assessment, and plan of care. Objective - Vital Signs Vital signs: Vital Signs Temp 98.9 F 01/03/24 08:00 Pulse 73 01/03/24 11:15 Resp 22 01/03/24 11:15 BP 125/67 01/02/24 08:45 Pulse Ox 100 01/03/24 11:15 FiO2 50 01/03/24 08:08 Intake & Output 01/02/24 01/03/24 01/03/24 18:59 06:59 18:59 Intake Total 3756.656 5225.131 365 Output Total 2230 2415 225 Balance -497.470 -500.869 140 Weight 103.6 kg 103.6 kg Intake: IV 450 1203 115 0.9% KVO 80 50 0.9% NS Pressure Bag 33 15 Magnesium Sulfate-D5w Pmx 100 1 gm In Dextrose/Water 1 100ml.bag @ 100 mls/hr IVPB ONCE ONE Rx#: [id number] Mvi, Adult No.4 with Vit 440 K 10 ml Trace (Conc-1Ml/ Dose) 1 ml Sodium Chloride 4Meq/ml Vial 50 meq Sodium Acetate 50 meq Calcium Gluconate 1 gm Magnesium Sulfate gm 1 gm Potassium Phosphate 15 mmol In Amino Acid 5%- D15w 1,000 ml @ 55 mls/hr IV .[id number] [facility] Rx#: [id number] Sodium Chloride 0.9% 1, 550 50 000 ml @ 50 mls/hr IV . Q20H [facility] Rx#:[id number] Sodium Chloride 0.9% 1, 450 000 ml @ 75 mls/hr IV . [id number] [facility] Rx#:[id number] Intake, IV Titration 1282.530 441.131 100 Amount Anidulafungin 100 mg In 100 Sodium Chloride 0.9% 100 ml @ 84 mls/hr IVPB DAILY [facility] Rx#:[id number] Norepinephrine 32 mg In 72.530 50.667 Sodium Chloride 0.9% 218 ml @ 0.03 MCG/KG/MIN 1. 333 mls/hr IV .Q24H [facility] Rx#:[id number] Piperacillin-Tazobactam 3 175 25 .375 gm In Sodium Chloride 0.9% 100 ml @ 25 mls/hr IVPB Q8HR [facility] Rx# :[id number] Potassium Chloride 20 meq 50 In Water For Injection 100 100ml.bag @ 50 mls/hr IVPB Q2H [facility] Rx#: [id number] Sodium Chloride 0.9% 1, 300 50 000 ml @ 50 mls/hr IV . Q20H [facility] Rx#:[id number] Vancomycin 1,500 mg In 334 Sodium Chloride 0.9% 500 ml 500 ml @ 167 mls/hr IVPB Q12H [facility] Rx#: [id number] Vasopressin 20 unit In 51 51 Sodium Chloride 0.9% 50 ml @ 0.03 UNITS/MIN 4.59 mls/hr IV .Q11H7M [facility] Rx# :[id number] propofoL 1,000 mg In 200 264.464 100 Empty Bag 1 bag @ 15 MCG/ KG/MIN 8.532 mls/hr IV . [id number] [facility] Rx#:[id number] Oral 150 150 Other 120 Output: Gastric Drainage 100 Urine 1530 815 225 Stool 600 1600 Other: Voiding Method Indwelling Catheter Indwelling Catheter ABP, PAP, CO, CI - Last Documented Arterial Blood Pressure 122/55 - Labs CBC & Chem 7: 01/03/24 04:30 01/03/24 11:50 Labs: Abnormal Lab Results - Last 24 Hours (Table) 10/17/24 10/17/24 10/17/24 Range/Units 11:32 11:53 15:04 RBC (4.30-5.90) m/uL Hgb (13.0-17.5) gm/dL Hct (39.0-53.0) % RDW (11.5-15.5) % ABG pO2 (83-108) mmHg ABG Total CO2 (19-24) mmol/L ABG O2 Saturation (94-97) % Hemoglobin (13.0-17.5) gm/dL Potassium 3.2 L (3.5-5.1) mmol/L Chloride (98-107) mmol/L BUN (9-20) mg/dL Creatinine (0.66-1.25) mg/dL Glucose (74-99) mg/dL POC Glucose (mg/dL) 120 H 117 H (70-110) mg/dL Calcium (8.4-10.2) mg/dL Phosphorus (2.5-4.5) mg/dL 01/02/24 01/02/24 01/03/24 Range/Units 18:02 19:06 00:18 RBC (4.30-5.90) m/uL Hgb (13.0-17.5) gm/dL Hct (39.0-53.0) % RDW (11.5-15.5) % ABG pO2 55 L* (83-108) mmHg ABG Total CO2 26 H (19-24) mmol/L ABG O2 Saturation 91.7 L (94-97) % Hemoglobin 7.8 L (13.0-17.5) gm/dL Potassium 3.3 L (3.5-5.1) mmol/L Chloride (98-107) mmol/L BUN (9-20) mg/dL Creatinine (0.66-1.25) mg/dL Glucose (74-99) mg/dL POC Glucose (mg/dL) 115 H (70-110) mg/dL Calcium (8.4-10.2) mg/dL Phosphorus (2.5-4.5) mg/dL 01/03/24 01/03/24 Range/Units 04:30 04:30 RBC 2.80 L (4.30-5.90) m/uL Hgb 7.9 L (13.0-17.5) gm/dL Hct 24.4 L (39.0-53.0) % RDW 17.3 H (11.5-15.5) % ABG pO2 (83-108) mmHg ABG Total CO2 (19-24) mmol/L ABG O2 Saturation (94-97) % Hemoglobin (13.0-17.5) gm/dL Potassium 3.2 L (3.5-5.1) mmol/L Chloride 117 H (98-107) mmol/L BUN 26 H (9-20) mg/dL Creatinine 0.58 L (0.66-1.25) mg/dL Glucose 103 H (74-99) mg/dL POC Glucose (mg/dL) (70-110) mg/dL Calcium 7.9 L (8.4-10.2) mg/dL Phosphorus 2.2 L (2.5-4.5) mg/dL Microbiology - Last 24 Hours (Table) 01/01/24 02:18 Urine Culture - Final Urine,Catheterized Klebsiella pneumoniae 12/31/23 14:00 Gram Stain - Final Bronchoalviolar Lavage - Left Bronchial Washings Culture - Final Methicillin resist S. aureus 01/01/24 02:01 Blood Culture - Preliminary Blood
[2024-01-03 16:18] LABS: ABG Base Excess -0.6 mmol/L; ABG HCO3 26 mmol/L (21-25); ABG Oxygen Saturation 98.3 % (94-97); ABG PCO2 50 mmHg (35-45); ABG PH 7.32 (7.35-7.45); ABG PO2 106 mmHg (83-108); ABG TCO2 27 mmol/L (19-24)
[2024-01-03 16:20] LABS: Allen Test Performed? no
[2024-01-03] MEDS: VANCOMYCIN 1,500 MG in SODIUM CHLORIDE 0.9% 500 ML 500 ML IVPB SCH (16:57)
[2024-01-03 18:01] LABS: Glucose,Whole Blood 81 mg/dL (70-110)
[2024-01-03] MEDS: AMPICILLIN-SULBACTAM 3 GM in SODIUM CHLORIDE 0.9% 100 ML IVPB SCH (18:29)
[2024-01-03] MEDS: IPRATROPIUM-ALBUTEROL 3 ML NEB INHALATION SCH (19:38)
[2024-01-04 00:33] LABS: Glucose,Whole Blood 72 mg/dL (70-110)
[2024-01-04 05:47] LABS: African American GFR (CKD) >90 (>60 ml/min/1.73 sqM); Anion Gap 0 mmol/L; Blood Urea Nitrogen 17 mg/dL (9-20); Carbon Dioxide 26 mmol/L (22-30); Chloride 116 mmol/L (98-107); Glucose 88 mg/dL (74-99); Non-African American GFR(CKD) >90 (>60 ml/min/1.73 sqM); Phosphorus 3.4 mg/dL (2.5-4.5); Potassium 3.6 mmol/L (3.5-5.1); Sodium 142 mmol/L (137-145)
--- NOTE | 2024-01-04 06:01 | P.PN ---
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 Patient came back to the ER today because of debility and having issues with his TPN supplies. There has been some issues with primary care appointments and orders with TPN requiring signature from his PCP. At this time patient denies any chest pain or shortness of breath. There was no complaint of fever or chills. Denies any nausea, vomiting, abdominal pain. Denies any lightheaded dizziness. Initial lab work done in the ER showed W6.3, hemoglobin 20.7, platelet count 264, sodium 130, potassium 4.9, BUN 20, creatinine 0.41, phosphorus 2.4, alk phos 133, total protein 9 Patient admitted to internal medicine service 12/26. Patient seen and examined. Complaining of pain in his right hand. D enies any shortness of breath /12. Patient seen and examined. Potassium level this morning was 5.5, patient was getting potassium supplementation, will DC it for now. 12/28. Patient seen and examined. Patient had a rapid response called overnight for low blood pressure, patient was given 2-1/2 L of fluid. Labs on this morning showed WBC 10.4, hemoglobin 14.4, platelet count 420, sodium 124, p otassium 5.5, BUN 104, creatinine 1.59. Ostomy output is blood-tinged. 12/30/2023 Patient continues in the ICU requiring low-dose pressor support and currently being weaned. Multiple consultations following including general surgery and did a washout of the abdomen early this morning along with cauterizing and placing sutures to an area near the ostomy that had been bleeding. Hemoglobin is stable and is being closely monitored with hemoglobins every 6 hours. Transfuse if 7 or less. Patient to continue with strict n.p.o. and is maintained on TPN. Blood sugars have been more elevated and will add long- acting and adjust insulins accordingly 12/31/2023 Patient continues in the ICU with multiple consultations following. Patient requiring increased oxygen demands currently on 6 L and transition to Airvo and pulmonary wine consultant following planning on bronchoscopy today. Patient is a febrile although continues with an elevated white count and hemoglobin is stable above 8 with no active bleeding noted. Patient is n.p.o. maintained on TPN at this time. Blood sugars continue to be in the 200s consistently and will adjust long-acting and continue sliding scale. 01/01/2024 patient is seen in follow up today and experienced increasing respiratory demands and became more obtunded and unresponsive requiring mechanical ventilation. Patient FiO2 is 50% with a PEEP of 8 and is status post bronchoscopy yesterday. Patient maintained on Levophed and vasopressin along with propofol. White count is elevated and patient is continued on IV antibiotics in the form of vancomycin and Zosyn. Cultures have been sent and pending at this time. Will consult infectious disease and appreciate input and recommendations. Hemoglobin is stable at 7.8 with no active bleeding noted. Potassium 2.7 and magnesium 1.5 along with phosphorus 0.9 and being replaced per protocol. Kidney functions remained stable at this time other than a chloride of 115 and sodium is 142. Patient is also being started on Eraxis. Recommend adjusting TPN per dietary and pharmacy. Overall prognosis remains extremely guarded at this time. 01/02/2024 Patient is evaluated in the intensive care unit he is currently intubated however he is awake alert oriented with eye moving and able to respond with nods to simple questions. Pressor support in the process of being weaned her blood pressure 144/65. Mechanical ventilator with an FiO2 of 50% and a PEEP of . Continues on TPN. Rectal tube in place continues with loose stools. C.Dif was negative. Cultures currently pending. Remains on Antibiotics with IV Zosyn, IV vancomycin as well as IV anidulafungin. Procalcitonin level was mildly elevated at 1.38. X-ray this morning reveals basilar atelectasis on the left as well as right midlung. Has white blood cell count is down to 10.7 today hemoglobin of 8.1. Sodium level is 142, potassium 2.6, BUN of 43 creatinine of 0.68. Magnesium 1.7. Blood glucose in the 150s continues on Levemir twice a day for this. 01/03/2024 Patient is seen in follow-up today remains intubated and discussing possible e xtubation today with pulmonary following scheduled to undergo bronchoscopy as well. Patient is maintained on antibiotics with infectious disease following while awaiting urine cultures as well as sputum culture showing MRSA. Preliminary urine is gram-negative and will continue current antibiotic regimen. Patient remains on low-dose pressor support and attempting to wean. TPN continues and tolerating. Continue to monitor Accu-Cheks and continue current regimen although blood sugars have been a little lower today. Recommend Accu- Cheks before meals and at bedtime and 2 AM. Patient is alert and responding on exam as propofol is off. Patient extremely weak and lethargic and falls asleep during conversation. Patient also appears frustrated as he is unable to communicate due to intubation REVIEW OF SYSTEMS: Unable to completely assess as patient is on mechanical ventilation PHYSICAL EXAMINATION: GENERAL: The patient is alert and oriented x 3, intubated although off sedation, ill looking, elderly appearing, obese. FiO2 is 50% with a PEEP of 8 HEENT: Pupils are round and equally reacting to light. EOMI. No scleral icterus. No conjunctival pallor. Normocephalic, atraumatic. No pharyngeal erythema. No thyromegaly. CARDIOVASCULAR: S1 and S2 muffled PULMONARY: Diminished breath sound the bases bilaterally with coarse rhonchi and a few scattered crackles ABDOMEN: Soft, nontender, nondistended,. Ostomy seen with brown stool, loose in the rectal tube MUSCULOSKELETAL: No joint swelling or deformity. Right BKA EXTREMITIES: No cyanosis, clubbing, or pedal edema. NEUROLOGICAL: Gross neurological examination did not reveal any focal deficits. Could not completely assessed as patient is mechanically ventilated SKIN: No rashes. Pale Assessment: Hypotension with hypotensive shock requiring pressor support likely secondary to acute GI bleed and hypovolemia Acute GI bleed from the ostomy secondary to an abdominal wall extravasation near the ostomy requiring sutures and cauterization 12/30/2023, resolved Acute blood loss anemia secondary to above acute kidney injury secondary to hypotension Possible acute urinary tract infection, secondary to indwelling Medina catheter, cultures preliminary showing gram-negative bacilli History of DVT Acute on chronic hypoxic respiratory failure requiring Airvo, status post bronchoscopy today 12/31/2023, with worsening respiratory distress requiring mechanical ventilation overnight 01/01/2024, discussing extubation today 12/16 and awaiting undergo repeat bronchoscopy today Leukocytosis, trending down, was started on Vanco and Zosyn also IV eraxis Moderate protein calorie malnutrition maintained on TPN Hyperkalemia, improved status post Lokelma Hyponatremia history of Crohn disease complicated with bowel perforation requiring ileostomy, also has 2 fistula in his anterior abdominal Wall, patient also has left upper chest portal to receive right 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 Patient continues on low-dose pressor support which is currently being weaned General Surgery following status post abdominal washout of the ostomy area and sutures placed with cauterization as there was an area that was bleeding near the ostomy. C.Dif is negative at this time. ID on and following cultures. TPN has been resumed and tolerating Monitor H&H every 6 and transfuse if 7 or less. Patient has required 2 units of PRBC since admission. No further bleeding noted and hemoglobin remains stable today, possible component of some dilution as well as patient received 2 to 3 L IV fluids Blood sugars have been on the lower end recommend to continue monitoring Accu- Cheks before meals and at bedtime and 2 AM and will continue current regimen at this time Patient continues on mechanical ventilation and scheduled to undergo repeat bro nchoscopy with pulmonary and plans for possible extubation today. Propofol is off and patient is alert and oriented although lethargic and is responding appropriately to questions and commands. Patient being monitored closely on IV fluids and diuretics have been held. Per nephrology okay to discontinue IV fluids or decrease the rate. Will follow-up on repeat labs and monitor electrolytes closely. Potassium, phosphorus, magnesium low and being replaced per protocol Case management/social work following and patient will require outpatient TPN supplies and follow-up with primary care provider. Recommending dietary and pharmacy to adjust TPN Due to multiple complex medical issues, overall prognosis is extremely guarded The impression and plan of care has been dictated by Alyssa Hernandez, Nurse Practitioner as directed. Dr. Mo MD I have performed a history and examination and MDM of this patient, discussed the same with the dictator, and agree with the dictator's assessment and plan as written ,documented as a scribe. Based on total visit time, I have performed more than 50% of the visit. Kavin campbell pager idiot Objective - Vital Signs Vital signs: Vital Signs Temp 98.9 F 01/03/24 04:00 Pulse 71 01/03/24 08:28 Resp 26 H 01/03/24 07:00 BP 125/67 01/02/24 08:45 Pulse Ox 98 01/03/24 07:00 FiO2 50 01/03/24 08:08 Intake & Output 01/02/24 01/03/24 01/03/24 18:59 06:59 18:59 Intake Total 8319.089 3343.131 213 Output Total 2230 2415 35 Balance -497.470 -500.869 178 Weight 103.6 kg Intake: IV 450 1203 63 0.9% KVO 80 10 0.9% NS Pressure Bag 33 3 Magnesium Sulfate-D5w Pmx 100 1 gm In Dextrose/Water 1 100ml.bag @ 100 mls/hr IVPB ONCE ONE Rx#: [id number] Mvi, Adult No.4 with Vit 440 K 10 ml Trace (Conc-1Ml/ Dose) 1 ml Sodium Chloride 4Meq/ml Vial 50 meq Sodium Acetate 50 meq Calcium Gluconate 1 gm Magnesium Sulfate gm 1 gm Potassium Phosphate 15 mmol In Amino Acid 5%- D15w 1,000 ml @ 55 mls/hr IV .[id number] [facility] Rx#: [id number] Sodium Chloride 0.9% 1, 550 50 000 ml @ 50 mls/hr IV . Q20H [facility] Rx#:[id number] Sodium Chloride 0.9% 1, 450 000 ml @ 75 mls/hr IV . [id number] [facility] Rx#:[id number] Intake, IV Titration 1282.530 441.131 Amount Anidulafungin 100 mg In 100 Sodium Chloride 0.9% 100 ml @ 84 mls/hr IVPB DAILY [facility] Rx#:[id number] Norepinephrine 32 mg In 72.530 50.667 Sodium Chloride 0.9% 218 ml @ 0.03 MCG/KG/MIN 1. 333 mls/hr IV .Q24H [facility] Rx#:[id number] Piperacillin-Tazobactam 3 175 25 .375 gm In Sodium Chloride 0.9% 100 ml @ 25 mls/hr IVPB Q8HR [facility] Rx# :[id number] Potassium Chloride 20 meq 50 In Water For Injection 100 100ml.bag @ 50 mls/hr IVPB Q2H [facility] Rx#: [id number] Sodium Chloride 0.9% 1, 300 50 000 ml @ 50 mls/hr IV . Q20H [facility] Rx#:[id number] Vancomycin 1,500 mg In 334 Sodium Chloride 0.9% 500 ml 500 ml @ 167 mls/hr IVPB Q12H [facility] Rx#: [id number] Vasopressin 20 unit In 51 51 Sodium Chloride 0.9% 50 ml @ 0.03 UNITS/MIN 4.59 mls/hr IV .[id number] [facility] Rx# :[id number] propofoL 1,000 mg In 200 264.464 Empty Bag 1 bag @ 15 MCG/ KG/MIN 8.532 mls/hr IV . [id number] [facility] Rx#:[id number] Oral 150 150 Other 120 Output: Gastric Drainage 100 Urine 1530 815 35 Stool 600 1600 Other: Voiding Method Indwelling Catheter Indwelling Catheter ABP, PAP, CO, CI - Last Documented Arterial Blood Pressure 113/53 - Labs CBC & Chem 7: 01/03/24 04:30 01/04/24 05:22 Labs: Abnormal Lab Results - Last 24 Hours (Table) 01/02/24 01/02/24 01/02/24 Range/Units 11:32 11:53 15:04 RBC (4.30-5.90) m/uL Hgb (13.0-17.5) gm/dL Hct (39.0-53.0) % RDW (11.5-15.5) % ABG pO2 (83-108) mmHg ABG Total CO2 (19-24) mmol/L ABG O2 Saturation (94-97) % Hemoglobin (13.0-17.5) gm/dL Potassium 3.2 L (3.5-5.1) mmol/L Chloride (98-107) mmol/L BUN (9-20) mg/dL Creatinine (0.66-1.25) mg/dL Glucose (74-99) mg/dL POC Glucose (mg/dL) 120 H 117 H (70-110) mg/dL Calcium (8.4-10.2) mg/dL Phosphorus (2.5-4.5) mg/dL 01/02/24 01/02/24 01/03/24 Range/Units 18:02 19:06 00:18 RBC (4.30-5.90) m/uL Hgb (13.0-17.5) gm/dL Hct (39.0-53.0) % RDW (11.5-15.5) % ABG pO2 55 L* (83-108) mmHg ABG Total CO2 26 H (19-24) mmol/L ABG O2 Saturation 91.7 L (94-97) % Hemoglobin 7.8 L (13.0-17.5) gm/dL Potassium 3.3 L (3.5-5.1) mmol/L Chloride (98-107) mmol/L BUN (9-20) mg/dL Creatinine (0.66-1.25) mg/dL Glucose (74-99) mg/dL POC Glucose (mg/dL) 115 H (70-110) mg/dL Calcium (8.4-10.2) mg/dL Phosphorus (2.5-4.5) mg/dL 01/03/24 01/03/24 Range/Units 04:30 04:30 RBC 2.80 L (4.30-5.90) m/uL Hgb 7.9 L (13.0-17.5) gm/dL Hct 24.4 L (39.0-53.0) % RDW 17.3 H (11.5-15.5) % ABG pO2 (83-108) mmHg ABG Total CO2 (19-24) mmol/L ABG O2 Saturation (94-97) % Hemoglobin (13.0-17.5) gm/dL Potassium 3.2 L (3.5-5.1) mmol/L Chloride 117 H (98-107) mmol/L BUN 26 H (9-20) mg/dL Creatinine 0.58 L (0.66-1.25) mg/dL Glucose 103 H (74-99) mg/dL POC Glucose (mg/dL) (70-110) mg/dL Calcium 7.9 L (8.4-10.2) mg/dL Phosphorus 2.2 L (2.5-4.5) mg/dL Microbiology - Last 24 Hours (Table) 12/31/23 14:00 Gram Stain - Final Bronchoalviolar Lavage - Left Bronchial Washings Culture - Final Methicillin resist S. aureus 01/01/24 02:01 Blood Culture - Preliminary Blood 01/01/24 02:18 Urine Culture - Preliminary Urine,Catheterized Gram Neg Bacilli
[2024-01-04] MEDS ORDERED: Potassium Replacement Protocol 1 EACH MISC MISCELLANE PRN (06:12)
[2024-01-04 06:13] LABS: Glucose,Whole Blood 87 mg/dL (70-110)
--- NOTE | 2024-01-04 06:36 | XR ---
EXAMINATION TYPE: XR chest 1V portable DATE OF EXAM: 01/04/2024 COMPARISON: 01/03/2024 HISTORY: Disease progression The ET tube and NG tube have been removed in the interval. The left-sided central line tip is stable in the SVC/RA junction. The retrocardiac opacity is stable. The right pleural effusion is stable. There is no pneumothorax. IMPRESSION: 1. ET tube and NG tube removed in the interval. 2. Acute cardiopulmonary process unchanged compared to previous TECHNIQUE: Single frontal view of the chest is obtained. FINDINGS: There is no focal air space opacity, pleural effusion, or pneumothorax seen. The cardiac silhouette size is within normal limits. The osseous structures are intact. IMPRESSION: No acute process. [facility], Workstation: [id number] 01/04/2024 6:34 AM
[2024-01-04] MEDS: POTASSIUM CHLORIDE ER 20 MEQ TAB.ER PO SCH (07:52)
[2024-01-04] MEDS: FUROSEMIDE 10 MG/ML 4 ML VIAL IV STA (08:51)
--- NOTE | 2024-01-04 09:42 | P.PN ---
Progress Note - Text Progress Note Date: 01/04/24 CHIEF COMPLAINT: Debility and issues with TPN supplies HISTORY OF PRESENT ILLNESS: No acute events overnight. Patient remains in the ICU. PHYSICAL EXAM: VITAL SIGNS: Reviewed. GENERAL: Well-developed in no acute distress. ABDOMEN: Soft. Nondistended. Ileostomy with brown liquidy stools. No further bleeding. NEUROLOGIC: awake ASSESSMENT: 1. Acute GI bleed at the ileostomy site status post suture and cauterization of bleeding vessel by surgeon 2. History of Crohn's with bowel perforation requiring ileostomy. 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
[2024-01-04 11:49] LABS: Glucose,Whole Blood 90 mg/dL (70-110)
--- NOTE | 2024-01-04 11:51 | P.PN ---
Subjective patient is seen for follow-up for acute kidney injury Maintained on TPN. patient was extubated. He is awake and following commands. Status post IV Lasix this morning. Patient remains on TPN. Normal saline has been discontinued. Urine output at 100-1 50 mL an hour Objective - Vital Signs Vital signs: Vital Signs Temp 98.1 F 01/04/24 08:00 Pulse 88 01/04/24 11:40 Resp 26 H 01/04/24 11:40 BP 125/67 01/02/24 08:45 Pulse Ox 95 01/04/24 10:15 FiO2 50 01/04/24 09:40 Intake & Output 01/03/24 01/04/24 01/04/24 18:59 06:59 18:59 Intake Total 5896.719 4857.791 1438 Output Total 1900 3315 2280 Balance -13.444 2875.791 -842 Weight 103.6 kg 102.6 kg Intake: IV 1471 1633.5 558 0.9% KVO 120 117.5 30 0.9% NS Pressure Bag 36 36 9 Ampicillin-Sulbactam 3 gm 100 100 In Sodium Chloride 0.9% 100 ml @ 200 mls/hr IVPB Q6HR [facility] Rx#:[id number] Mvi, Adult No.4 with Vit 165 275 K 10 ml Trace (Conc-1Ml/ Dose) 1 ml Sodium Chloride 4Meq/ml Vial 50 meq Sodium Acetate 50 meq Calcium Gluconate 1 gm Magnesium Sulfate gm 1 gm Potassium Phosphate 15 mmol In Amino Acid 5%- D15w 1,000 ml @ 55 mls/hr IV .[id number] [facility] Rx#: [id number] Mvi, Adult No.4 with Vit 385 165 K 10 ml Trace (Conc-1Ml/ Dose) 1 ml Sodium Chloride 4Meq/ml Vial 50 meq Sodium Acetate 50 meq Calcium Gluconate 1 gm Magnesium Sulfate gm 1 gm Potassium Phosphate 21 mmol In Amino Acid 5%- D15w 1,000 ml @ 55 mls/hr IV .[id number] [facility] Rx#: [id number] Sodium Chloride 0.9% 1, 50 220 20 000 ml @ 50 mls/hr IV . Q20H [facility] Rx#:[id number] Vancomycin 1,500 mg In 1000 500 334 Sodium Chloride 0.9% 500 ml 500 ml @ 167 mls/hr IVPB Q16H [facility] Rx#: [id number] Intake, IV Titration 152.152 3007.291 Amount Mvi, Adult No.4 with Vit 1067.5 K 10 ml Trace (Conc-1Ml/ Dose) 1 ml Sodium Chloride 4Meq/ml Vial 50 meq Sodium Acetate 50 meq Calcium Gluconate 1 gm Magnesium Sulfate gm 1 gm Potassium Phosphate 21 mmol In Amino Acid 5%- D15w 1,000 ml @ 55 mls/hr IV .[id number] [facility] Rx#: [id number] Norepinephrine 32 mg In 36.455 9.791 Sodium Chloride 0.9% 218 ml @ 0.03 MCG/KG/MIN 1. 333 mls/hr IV .Q24H [facility] Rx#:[id number] Vasopressin 20 unit In 49.801 Sodium Chloride 0.9% 50 ml @ 0.03 UNITS/MIN 4.59 mls/hr IV .[id number] [facility] Rx# :[id number] propofoL 1,000 mg In 179.300 Empty Bag 1 bag @ 15 MCG/ KG/MIN 8.532 mls/hr IV . [id number] [facility] Rx#:[id number] Oral 150 3480 880 Output: Urine 700 2165 480 Stool 1150 1800 Urine/Stool Mix 1200 Other: Voiding Method Indwelling Catheter Indwelling Catheter ABP, PAP, CO, CI - Last Documented Arterial Blood Pressure 131/51 - Exam patient is awake and comfortable. Alert oriented 3. Examination of the heart S1 and S2 Examination of the lungs bilateral breath sounds are heard Abdomen is soft obese nontender, ileostomy right BKA noted Atrophy of lower extremities noted. edema noted 1+ bilateral - Labs CBC & Chem 7: 01/03/24 04:30 01/04/24 05:22 Labs: Abnormal Lab Results - Last 24 Hours (Table) 01/03/24 01/04/24 Range/Units 16:16 05:22 ABG pH 7.32 L (7.35-7.45) ABG pCO2 50 H (35-45) mmHg ABG HCO3 26 H (21-25) mmol/L ABG Total CO2 27 H (19-24) mmol/L ABG O2 Saturation 98.3 H (94-97) % Hemoglobin 7.9 L (13.0-17.5) gm/dL Chloride 116 H (98-107) mmol/L Creatinine 0.53 L (0.66-1.25) mg/dL Calcium 8.0 L (8.4-10.2) mg/dL Microbiology - Last 24 Hours (Table) 01/01/24 02:01 Blood Culture - Preliminary Blood 01/01/24 02:18 Urine Culture - Final Urine,Catheterized Klebsiella pneumoniae 12/31/23 14:00 Gram Stain - Final Bronchoalviolar Lavage - Left Bronchial Washings Culture - Final Methicillin resist S. aureus Assessment and Plan Assessment: 1. Acute kidney injury, nonoliguric, related to hypotension. UA is benign. Maintained on IV fluids. 2. Hypovolemic hyponatremia, improved with saline. 3. Metabolic acidosis secondary to acute kidney injury 4. History of Crohn's disease and bowel perforations currently on TPN. History of ileostomy 5. Hyperkalemia associated with acute kidney injury and GI bleed, resolved potassium is now low. 6. Acute GI bleed 7. Acute hypoxic respiratory failure, improved and patient is extubated. 8. UTI with urine culture growing Klebsiella pneumoniae Plan: continue antibiotics continue Neutra-Phos for now check labs in a.m.
--- NOTE | 2024-01-04 13:50 | P.PN ---
Subjective Progress Note Date: 01/04/24 Patient is a 48-year-old male with complex past medical history including CVA, previous DVTs, right BKA, cardiac arrest in 2021, Crohn's disease, enterocutaneous fistulas, previous bowel resection. More recently, patient was admitted 12/13/2023 through 12/25/2023 for pneumonia and respiratory failure due to mucous plugging. He was intubated and placed on mechanical ventilator for approximately 6 days. He did have a bronchoscopy with BAL, microbiology positive for haemophilus influenza. Completed his antibiotics. Was discharged home. Unable to get supplies/TPN on discharge, and returned back to the emergency department on 12/26/2023. He was admitted, and while on the general medical floor. Noted to have some bleeding from his ostomy per the RN. This progressively became more copious, is currently dark red with clots. Previously on therapeutic dose of Lovenox, and this has been stopped. Dr. Munoz is aware of this patient, and he did receive 2 L fluid bolus earlier in the day yesterday. Patient is now hypotensive and symptomatic. 2 units of PRBCs are pending. General surgery is consulted and aware. Hemoglobin has dropped from 13.7 on admission, and is currently 9.8 g/dL. Abdominal and pelvis CT showing several areas of active extravasation noted on early arterial phase imaging within the superficial post operative ventral abdominal wall. Indeterminate whether this area of bleeding lies within a conglomeration of superficial bowel loop or is within the postoperative abdominal wall. No evidence of bowel obstruction. Also, dense bibasilar consolidations noted in the lower lobes. Remainder of patient's CBC includes a WBC count 9.1, hemoglobin 9.8, hematocrit 31.6, plat elets 361. Coags include a PT of 11.2, INR of 1, PTT of 28.4. Most recent BMP: Sodium 126, potassium 6.1, chloride 102, serum bicarb 17, BUN 102, creatinine 1, glucose 203. Hyperkalemia was treated with Lokelma, and is currently down to 5.8 g/dL. Patient is currently being evaluated in the intensive care unit. He is resting comfortably on room air. Alert and oriented x 3. Cold and diaphoretic. Blood pressure hypotensive, despite receiving an additional 1 L fluid bolus. Patient is going to be started on norepinephrine until blood products become available. Continues to have large volume dark blood with blood clots. No nausea or vomiting or hematemesis. No abdominal pain. General surgery currently evaluating patient, and recommendations to follow. On 12/31/2023, the patient is is being seen for a follow-up. No evidence of any bleeding from the abdominal wall. Nevertheless, the patient has a very weak congested cough unable to bring up much sputum. Initially was on 5 L of oxygen by nasal cannula and later on during the day he decompensated and currently is on Airvo in addition to 100% nonrebreather facemask. Obviously, the patient is having upper respiratory secretions and the patient will need a bronchoscopy. Chest x-ray showing smaller lung volumes. No evidence of any acute pulmonary filtration. The patient remains on normal citrate of 75 cc an hour. The patient is on TPN at a rate of 120 cc an hour. Norepinephrine is running at 0.06 mcg/kg/min. He is lethargic and arousable and able to communicate. Family is at the bedside. The white cell count is 15 with a hemoglobin 10.2 and a platelet count of 309. BUN is 105 with a creatinine of 1.04 and a sodium level is at 132 and a potassium level of 4.3 and a bicarb of 17. The patient is on TPN for nutritional support. On 01/01/2024, patient is being seen for a follow-up. Overnight, the patient went into respiratory failure and his blood gas showed severe respiratory acidosis. Noted the patient had extensive mucous plugging and required bronchoscopy yesterday with removal of approximately 30 cc of vascular secretions were essentially purulent. Post bronchoscopy, the patient became hypotensive and sepsis was suspected and the patient accordingly was placed on a combination of Zosyn and vancomycin. Cultures are still pending. Eraxis was also added to broaden antibiotic coverage. The patient this morning is on normal saline at rate of 75 cc an hour. Received a total of 3 L of IV fluid yes terday. Norepinephrine is running at 0.45 mcg/kg/min and the patient is also on vasopressin physiologic dose anteriorly and TPN running at 120 cc an hour. He is currently on assist-control mode of mechanical ventilation. He is sedated with propofol at rate of 40 mcg/kg/min. He is on a tidal volume of 450, rate of 26, FiO2 100% and a PEEP of 5. Blood gas showed a pH of 7.21 with a pCO2 of 42 and pO2 of 88. Chest x-ray shows atelectatic changes in lung bases bilaterally. Phosphorus level was 0.9. Magnesium level is at 1.9. Those need to be replaced. BUN is 82 with a creatinine of 0.9 and sodium levels at 142 with a potassium level of 2.7. WBC count 17.1 with a hemoglobin of 7.8 and a platelet count of 325. 01/02/2024, the patient remains intubated on mechanical ventilator. The patient remains on propofol which is running at 50 mcg/kg/min. The patient is adequately sedated and synchronous with mechanical ventilator. Started on assist-control mode with rate of 26, tidal volume of 450, FiO2 of 50% with a PEEP of 5. Blood gas showed pH of 7.44 with pCO2 of 33 and pO2 of 117. Chest x-ray showed atelectatic changes lung base bilaterally. At the same time, the patient remains on normal saline at rate of 75 cc an hour. He received a total of 4 L of normal saline yesterday. He also is receiving TPN at rate of 55 cc an hour. Norepinephrine is running at 0.19 mcg/min and this has been titrated compared to yesterday and the patient remains on vasopressin 0.03 units an hour. He is afebrile. Antibiotic coverage including combination of Zosyn and vancomycin and Eraxis. Renal function is stable. The patient has no active bleeding from the abdominal wall. The stool was checked for C. difficile and was negative. Sodium is 142, potassium is 2.6, BUN is 43 with a creatinine 0.68. WBC count of 10.7 with a hemoglobin of 8.1 and platelet count of 287. 01/03/2024, the patient is being seen for a follow-up. Remains intubated on the mechanical ventilator. He is on propofol at 50 mcg/kg/min. Nevertheless, he is arousable and is following simple commands even while being on propofol. Chest x-ray shows atelectatic changes in lung base bilaterally. The patient remains on the mechanical ventilator, and he remains essentially on the same ventilator setting which includes an assist-control mode with a tidal volume of 450, rate of 26, FiO2 for 50% and a PEEP of 5. Blood gas showed a pH of 7.45 with a pCO2 of 35 and pO2 of 55. I performed another bedside bronchoscopy and another 15 cc of purulent material was aspirated from the lung bases bilaterally. The bronchial lavage that was collected earlier showed MRSA. Urine culture was also positive for Klebsiella pneumoniae and the patient remains on a combination of Zosyn and vancomycin. Pressor requirements have improved compared to yesterday. The patient remains on norepinephrine running at 0.06 mcg/kg/min. He is also on vasopressin physiologic dose. He is on normal citrate of 50 cc an hour. TPN is running at rate of 55 cc an hour. Blood cultures negative. No active bleeding from his ileostomy or enterocutaneous fistulas. On 01/04/2024, the patient is being seen for a follow-up. The patient was weaned off the mechanical ventilator and the patient was extubated to BiPAP and this morning the patient is on 6 L of O2 nasal cannula. Cough remains weak and the patient is unable to bring up much sputum. His early sputum analysis was positive for MRSA. Chest x-ray from today shows a right-sided pleural effusion and atelectatic changes lung base bilaterally. The patient seems to be calm and comfortable and awake and communicating. He is profoundly weak. He remains on norepinephrine which is running at 0.05 mcg/kg/min. Vasopressin was discontinued. IV fluids are currently at KVO. Remains on TPN for nutritional support. Sodium is at 142, potassium 3.6 BUN is 17 with a creatinine of 0.5. CBC still pending for now. The patient remains on Unasyn and vancomycin. Remains on TPN for nutritional support. He is currently off propofol. Ileostomy is functional and there is no evidence of any bleeding from the ileostomy or the enterocutaneous fistulas. Objective - Vital Signs Vital signs: Vital Signs Temp 98.2 F 01/04/24 04:00 Pulse 87 01/04/24 07:00 Resp 19 01/04/24 07:00 BP 125/67 01/02/24 08:45 Pulse Ox 98 01/04/24 07:00 FiO2 50 01/04/24 04:47 Intake & Output 01/03/24 01/04/24 01/04/24 18:59 06:59 18:59 Intake Total 6096.408 8510.791 568 Output Total 1900 3315 1330 Balance -13.444 2875.791 -762 Weight 103.6 kg 102.6 kg Intake: IV 1471 1633.5 88 0.9% KVO 120 117.5 10 0.9% NS Pressure Bag 36 36 3 Ampicillin-Sulbactam 3 gm 100 100 In Sodium Chloride 0.9% 100 ml @ 200 mls/hr IVPB Q6HR ANNIE Rx#:[id number] Mvi, Adult No.4 with Vit 165 275 K 10 ml Trace (Conc-1Ml/ Dose) 1 ml Sodium Chloride 4Meq/ml Vial 50 meq Sodium Acetate 50 meq Calcium Gluconate 1 gm Magnesium Sulfate gm 1 gm Potassium Phosphate 15 mmol In Amino Acid 5%- D15w 1,000 ml @ 55 mls/hr IV .[id number] ANNIE Rx#: [id number] Mvi, Adult No.4 with Vit 385 55 K 10 ml Trace (Conc-1Ml/ Dose) 1 ml Sodium Chloride 4Meq/ml Vial 50 meq Sodium Acetate 50 meq Calcium Gluconate 1 gm Magnesium Sulfate gm 1 gm Potassium Phosphate 21 mmol In Amino Acid 5%- D15w 1,000 ml @ 55 mls/hr IV .[id number] ANNIE Rx#: [id number] Sodium Chloride 0.9% 1, 50 220 20 000 ml @ 50 mls/hr IV . Q20H ANNIE Rx#:[id number] Vancomycin 1,500 mg In 1000 500 Sodium Chloride 0.9% 500 ml 500 ml @ 167 mls/hr IVPB Q16H ANNIE Rx#: [id number] Intake, IV Titration 900.955 1337.291 Amount Mvi, Adult No.4 with Vit 1067.5 K 10 ml Trace (Conc-1Ml/ Dose) 1 ml Sodium Chloride 4Meq/ml Vial 50 meq Sodium Acetate 50 meq Calcium Gluconate 1 gm Magnesium Sulfate gm 1 gm Potassium Phosphate 21 mmol In Amino Acid 5%- D15w 1,000 ml @ 55 mls/hr IV .[id number] ANNIE Rx#: [id number] Norepinephrine 32 mg In 36.455 9.791 Sodium Chloride 0.9% 218 ml @ 0.03 MCG/KG/MIN 1. 333 mls/hr IV .Q24H ANNIE Rx#:[id number] Vasopressin 20 unit In 49.801 Sodium Chloride 0.9% 50 ml @ 0.03 UNITS/MIN 4.59 mls/hr IV .[id number] ANNIE Rx# :[id number] propofoL 1,000 mg In 179.300 Empty Bag 1 bag @ 15 MCG/ KG/MIN 8.532 mls/hr IV . [id number] ANNIE Rx#:[id number] Oral 150 3480 480 Output: Urine 700 2165 130 Stool 1150 1200 Urine/Stool Mix 1200 Other: Voiding Method Indwelling Catheter Indwelling Catheter ABP, PAP, CO, CI - Last Documented Arterial Blood Pressure 117/52 - Exam GENERAL EXAM: 48-year-old male, awake and alert and communicating in 60 days of oxygen by nasal cannula HEAD: Normocephalic and atraumatic EYES: Normal reaction of pupils, equal size. NOSE: Clear with pink turbinates. THROAT: No erythema or exudates. NECK: No masses, no JVD. CHEST: No chest wall deformity. Left subclavian double-lumen central line LUNGS: Equal air entry with no crackles, wheeze, rhonchi or dullness. On room air. No conversational dyspnea or accessory muscle use.. The patient has diminished breath sounds in very weak cough. No stridor. CVS: S1 and S2 normal with no audible murmur, regular rhythm. No extra heart sounds ABDOMEN: Ileostomy with brown stool, no evidence of any bleeding.. Bowel sounds present. Abdomen is soft and nontender. No organomegaly. SPINE: No scoliosis or deformity SKIN: No rashes CENTRAL NERVOUS SYSTEM: Sedated on propofol. EXTREMITIES: Right BKA, left leg weakness and left foot drop, remaining distal pulses are weak and only found with Doppler. Extremities are showing diminished pulses bilaterally otherwise no significant cyanosis. - Labs CBC & Chem 7: 01/03/24 04:30 01/04/24 05:22 Labs: Abnormal Lab Results - Last 24 Hours (Table) 01/03/24 01/04/24 Range/Units 16:16 05:22 ABG pH 7.32 L (7.35-7.45) ABG pCO2 50 H (35-45) mmHg ABG HCO3 26 H (21-25) mmol/L ABG Total CO2 27 H (19-24) mmol/L ABG O2 Saturation 98.3 H (94-97) % Hemoglobin 7.9 L (13.0-17.5) gm/dL Chloride 116 H (98-107) mmol/L Creatinine 0.53 L (0.66-1.25) mg/dL Calcium 8.0 L (8.4-10.2) mg/dL Microbiology - Last 24 Hours (Table) 01/01/24 02:01 Blood Culture - Preliminary Blood 01/01/24 02:18 Urine Culture - Final Urine,Catheterized Klebsiella pneumoniae 12/31/23 14:00 Gram Stain - Final Bronchoalviolar Lavage - Left Bronchial Washings Culture - Final Methicillin resist S. aureus Assessment and Plan Assessment: Abdominal wall versus GI bleeding. The patient encountered acute GI bleeding vs bleeding from the abdominal wall, Abdominal and pelvis CT showing several areas of active extravasation noted on early arterial phase imaging within the superficial post operative ventral abdominal wall. Indeterminate whether this area of bleeding lies within a conglomeration of superficial bowel loop or is within the postoperative abdominal wall. No evidence of bowel obstruction. No evidence of any active bleeding for now. Acute blood loss anemia, secondary to above, 2 units PRBCs transfused and the patient is currently running a stable hemoglobin, awaiting hemoglobin from today Acute hypoxic respiratory failure, with bilateral pneumonia in the lung bases/atelectasis and the bronchial lavage that was done earlier was positive for MRSA. Suspect MRSA pneumonia. The patient had another bronchoscopy on 01/03/2024 prior to his extubation. He was extubated to a BiPAP and currently is on 6 L of O2 nasal cannula. 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 The patient remains on norepinephrine and vasopressin physiologic dose. The pressor requirements have improved and the patient has been adequately resuscitated IV fluids Electrolyte imbalance with hypomagnesium , hypophosphatemia and hypokalemia. Improved. Recent history of ventilator dependent respiratory failure, secondary to pneumonia, microbiology from BAL positive for haemophilus influenzae History of DVT, previously on therapeutic dose of Lovenox, which is currently stopped History of Crohn's disease complicated by bowel perforation status post colectomy and diverting ileostomy. 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 Currently receiving TPN for nutritional support. 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 cardiac asystole/arrest in 2021 History of tracheostomy and reversal Plan: Patient was extubated initially to BiPAP and currently is in 60s of oxygen by nasal cannula Aggressive pulmonary toileting Chest PT Provide incentive spirometer Wean off pressors and discontinue today Give Lasix 40 mg IV push Antibiotic coverage with a combination of Unasyn and vancomycin Continue TPN for nutritional support Monitor hemoglobin Lovenox 40 mg subcu for DVT prophylaxis Protonix twice daily Will continue to monitor and follow-up this patient will do the rest of the consultants. Further recommendations are to follow. This evaluation was done and more than 30 minutes. This is working progress. Time with Patient: Greater than 30
--- NOTE | 2024-01-04 14:00 | P.PN ---
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 Patient came back to the ER today because of debility and having issues with his TPN supplies. There has been some issues with primary care appointments and orders with TPN requiring signature from his PCP. At this time patient denies any chest pain or shortness of breath. There was no complaint of fever or chills. Denies any nausea, vomiting, abdominal pain. Denies any lightheaded dizziness. Initial lab work done in the ER showed W6.3, hemoglobin 20.7, platelet count 264, sodium 130, potassium 4.9, BUN 20, creatinine 0.41, phosphorus 2.4, alk phos 133, total protein 9 Patient admitted to internal medicine service 12/26. Patient seen and examined. Complaining of pain in his right hand. Александр es any shortness of breath /12. Patient seen and examined. Potassium level this morning was 5.5, patient was getting potassium supplementation, will DC it for now. 12/28. Patient seen and examined. Patient had a rapid response called overnight for low blood pressure, patient was given 2-1/2 L of fluid. Labs on this morning showed WBC 10.4, hemoglobin 14.4, platelet count 420, sodium 124, potassium 5.5, BUN 104, creatinine 1.59. Ostomy output is blood-tinged. 12/30/2023 Patient continues in the ICU requiring low-dose pressor support and currently being weaned. Multiple consultations following including general surgery and did a washout of the abdomen early this morning along with cauterizing and placing sutures to an area near the ostomy that had been bleeding. Hemoglobin is stable and is being closely monitored with hemoglobins every 6 hours. Transfuse if 7 or less. Patient to continue with strict n.p.o. and is maintained on TPN. Blood sugars have been more elevated and will add long- acting and adjust insulins accordingly 12/31/2023 Patient continues in the ICU with multiple consultations following. Patient requiring increased oxygen demands currently on 6 L and transition to Airvo and pulmonary repairer engine production following planning on bronchoscopy today. Patient is afeb rile although continues with an elevated white count and hemoglobin is stable above 8 with no active bleeding noted. Patient is n.p.o. maintained on TPN at this time. Blood sugars continue to be in the 200s consistently and will adjust long-acting and continue sliding scale. 01/01/2024 patient is seen in follow up today and experienced increasing respiratory demands and became more obtunded and unresponsive requiring mechanical ventilation. Patient FiO2 is 50% with a PEEP of 8 and is status post bronchoscopy yesterday. Patient maintained on Levophed and vasopressin along with propofol. White count is elevated and patient is continued on IV antibiotics in the form of vancomycin and Zosyn. Cultures have been sent and pending at this time. Will consult infectious disease and appreciate input and recommendations. Hemoglobin is stable at 7.8 with no active bleeding noted. Potassium 2.7 and magnesium 1.5 along with phosphorus 0.9 and being replaced per protocol. Kidney functions remained stable at this time other than a chloride of 115 and sodium is 142. Patient is also being started on Eraxis. Recommend adjusting TPN per dietary and pharmacy. Overall prognosis remains ex tremely guarded at this time. 01/02/2024 Patient is evaluated in the intensive care unit he is currently intubated however he is awake alert oriented with eye moving and able to respond with nods to simple questions. Pressor support in the process of being weaned her blood pressure 144/65. Mechanical ventilator with an FiO2 of 50% and a PEEP of . Continues on TPN. Rectal tube in place continues with loose stools. C.Dif was negative. Cultures currently pending. Remains on Antibiotics with IV Zosyn, IV vancomycin as well as IV anidulafungin. Procalcitonin level was mildly elevated at 1.38. X-ray this morning reveals basilar atelectasis on the left as well as right midlung. Has white blood cell count is down to 10.7 today hemoglobin of 8.1. Sodium level is 142, potassium 2.6, BUN of 43 creatinine of 0.68. Magnesium 1.7. Blood glucose in the 150s continues on Levemir twice a day for this. 01/03/2024 Patient is seen in follow-up today remains intubated and discussing possible extubation today with pulmonary following scheduled to undergo bronchoscopy as well. Patient is maintained on antibiotics with infectious disease following while awaiting urine cultures as well as sputum culture showing MRSA. Preliminary urine is gram-negative and will continue current antibiotic regimen. Patient remains on low-dose pressor support and attempting to wean. TPN continues and tolerating. Continue to monitor Accu-Cheks and continue current regimen although blood sugars have been a little lower today. Recommend Accu- Cheks before meals and at bedtime and 2 AM. Patient is alert and responding on exam as propofol is off. Patient extremely weak and lethargic and falls asleep during conversation. Patient also appears frustrated as he is unable to communicate due to intubation 01/03. Patient seen and examined. 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 Patient received IV Lasix this morning. No bleeding around the ileostomy site. REVIEW OF SYSTEMS: CONSTITUTIONAL: No fever, no malaise,. Complaining of lethargy CARDIOVASCULAR: No chest pain, no palpitations, no syncope. PULMONARY: No shortness of breath, no cough, GASTROINTESTINAL: No diarrhea, no nausea, no vomiting, no abdominal pain. NEUROLOGICAL: No headaches, no weakness, PHYSICAL EXAMINATION: GENERAL: The patient is alert and oriented x3, ill looking HEENT: Pupils are round and equally reacting to light. EOMI. No scleral icterus. No conjunctival pallor. Normocephalic, atraumatic. No pharyngeal erythema. No thyromegaly. CARDIOVASCULAR: S1 and S2 present. No murmurs, rubs, or gallops. PULMONARY: Diminished breath sound the bases bilaterally ABDOMEN: Soft, nontender, nondistended,. Ostomy seen MUSCULOSKELETAL: No joint swelling or deformity. Right BKA EXTREMITIES: No cyanosis, clubbing, or pedal edema. NEUROLOGICAL: Gross neurological examination did not reveal any focal deficits. SKIN: No rashes. Assessment and plan Hypotension with hypotensive shock requiring pressor support likely secondary to acute GI bleed and hypovolemia Acute GI bleed from the ostomy secondary to an abdominal wall extravasation near the ostomy requiring sutures and cauterization 12/30/2023, resolved Acute blood loss anemia secondary to above acute kidney injury secondary to hypotension Possible acute urinary tract infection, secondary to indwelling Medina catheter, cultures preliminary showing gram-negative bacilli History of DVT Acute on chronic hypoxic respiratory failure requiring Airvo, status post bronchoscopy today 12/31/2023, with worsening respiratory distress requiring mechanical ventilation overnight 01/01/2024, discussing extubation today 01/03/2024 and awaiting undergo repeat bronchoscopy today Leukocytosis, trending down, was started on Vanco and Zosyn also IV eraxis Moderate protein calorie malnutrition maintained on TPN Hyperkalemia, improved status post Lokelma Hyponatremia history of Crohn disease complicated with bowel perforation requiring ileostomy, also has 2 fistula in his anterior abdominal Wall, patient also has left upper chest portal to receive right lower extremity arterial clot and 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 Continue IV Unasyn and vancomycin Monitor blood sugar levels, continue current insulin regimen Critical care following Surgery following ID following Case management consulted, patient needs appointment with PCP as soon as possible to be evaluated, working on outpatient TPN supplies Labs and medication were reviewed.. Continue same treatment. Continue with symptomatic treatment. Resume home medication. Monitor labs and vitals. DVT and GI prophylaxis. Further recommendations as per clinical course of the patient Dictation was produced using [employer] dictation software. please excuse any grammatical, word or spelling errors. Objective - Vital Signs Vital signs: Vital Signs Temp 98.2 F 01/04/24 04:00 Pulse 96 01/04/24 08:52 Resp 23 01/04/24 08:52 BP 125/67 01/02/24 08:45 Pulse Ox 96 01/04/24 08:30 FiO2 50 01/04/24 08:29 Intake & Output 01/03/24 01/04/24 01/04/24 18:59 06:59 18:59 Intake Total 5318.792 6671.791 568 Output Total 1900 3315 1330 Balance -13.444 2875.791 -762 Weight 103.6 kg 102.6 kg Intake: IV 1471 1633.5 88 0.9% KVO 120 117.5 10 0.9% NS Pressure Bag 36 36 3 Ampicillin-Sulbactam 3 gm 100 100 In Sodium Chloride 0.9% 100 ml @ 200 mls/hr IVPB Q6HR [facility] Rx#:[id number] Mvi, Adult No.4 with Vit 165 275 K 10 ml Trace (Conc-1Ml/ Dose) 1 ml Sodium Chloride 4Meq/ml Vial 50 meq Sodium Acetate 50 meq Calcium Gluconate 1 gm Magnesium Sulfate gm 1 gm Potassium Phosphate 15 mmol In Amino Acid 5%- D15w 1,000 ml @ 55 mls/hr IV .[id number] [facility] Rx#: [id number] Mvi, Adult No.4 with Vit 385 55 K 10 ml Trace (Conc-1Ml/ Dose) 1 ml Sodium Chloride 4Meq/ml Vial 50 meq Sodium Acetate 50 meq Calcium Gluconate 1 gm Magnesium Sulfate gm 1 gm Potassium Phosphate 21 mmol In Amino Acid 5%- D15w 1,000 ml @ 55 mls/hr IV .[id number] [facility] Rx#: [id number] Sodium Chloride 0.9% 1, 50 220 20 000 ml @ 50 mls/hr IV . Q20H [facility] Rx#:[id number] Vancomycin 1,500 mg In 1000 500 Sodium Chloride 0.9% 500 ml 500 ml @ 167 mls/hr IVPB Q16H [facility] Rx#: [id number] Intake, IV Titration 200.698 2640.291 Amount Mvi, Adult No.4 with Vit 1067.5 K 10 ml Trace (Conc-1Ml/ Dose) 1 ml Sodium Chloride 4Meq/ml Vial 50 meq Sodium Acetate 50 meq Calcium Gluconate 1 gm Magnesium Sulfate gm 1 gm Potassium Phosphate 21 mmol In Amino Acid 5%- D15w 1,000 ml @ 55 mls/hr IV .[id number] [facility] Rx#: [id number] Norepinephrine 32 mg In 36.455 9.791 Sodium Chloride 0.9% 218 ml @ 0.03 MCG/KG/MIN 1. 333 mls/hr IV .Q24H [facility] Rx#:[id number] Vasopressin 20 unit In 49.801 Sodium Chloride 0.9% 50 ml @ 0.03 UNITS/MIN 4.59 mls/hr IV .[id number] [facility] Rx# :[id number] propofoL 1,000 mg In 179.300 Empty Bag 1 bag @ 15 MCG/ KG/MIN 8.532 mls/hr IV . [id number] [facility] Rx#:[id number] Oral 150 3480 480 Output: Urine 700 2165 130 Stool 1150 1200 Urine/Stool Mix 1200 Other: Voiding Method Indwelling Catheter Indwelling Catheter ABP, PAP, CO, CI - Last Documented Arterial Blood Pressure 117/52 - Labs CBC & Chem 7: 01/03/24 04:30 01/04/24 05:22 Labs: Abnormal Lab Results - Last 24 Hours (Table) 01/03/24 01/04/24 Range/Units 16:16 05:22 ABG pH 7.32 L (7.35-7.45) ABG pCO2 50 H (35-45) mmHg ABG HCO3 26 H (21-25) mmol/L ABG Total CO2 27 H (19-24) mmol/L ABG O2 Saturation 98.3 H (94-97) % Hemoglobin 7.9 L (13.0-17.5) gm/dL Chloride 116 H (98-107) mmol/L Creatinine 0.53 L (0.66-1.25) mg/dL Calcium 8.0 L (8.4-10.2) mg/dL Microbiology - Last 24 Hours (Table) 01/01/24 02:01 Blood Culture - Preliminary Blood 01/01/24 02:18 Urine Culture - Final Urine,Catheterized Klebsiella pneumoniae 12/31/23 14:00 Gram Stain - Final Bronchoalviolar Lavage - Left Bronchial Washings Culture - Final Methicillin resist S. aureus
[2024-01-04] MEDS: 1: MVI, ADULT NO.4 WITH VIT K 10 ML, TRACE (CONC-1ML/DOSE) 1 ML, SODIUM CHLORIDE 4MEQ/ML IV SCH (15:07)
[2024-01-04 17:45] LABS: Glucose,Whole Blood 103 mg/dL (70-110)
[2024-01-04 17:53] LABS: Anisocytosis Slight; Basophils % (A) 1 %; Eosinophils # (A) 0.4 k/uL (0-0.7); Eosinophils % (A) 7 %; HCT 27.1 % (39.0-53.0); HGB 7.9 gm/dL (13.0-17.5); Hypochromasia Marked; Lymphocytes # (A) 1.4 k/uL (1.0-4.8); Lymphocytes % (A) 27 %; MCH 27.5 pg (25.0-35.0); MCHC 29.3 g/dL (31.0-37.0); Mean Platelet Volume 9.9; Monocytes # (A) 0.3 k/uL (0-1.0); Monocytes % (A) 6 %; Neutrophils # (A) 2.8 k/uL (1.3-7.7); Neutrophils % (A) 55 %; Platelet Count 311 k/uL (150-450); RBC 2.88 m/uL (4.30-5.90); RDW 16.3 % (11.5-15.5)
[2024-01-04 17:54] LABS: MCV 93.9 fL (80.0-100.0)
[2024-01-05 00:20] LABS: Glucose,Whole Blood 97 mg/dL (70-110)
--- NOTE | 2024-01-05 05:38 | P.PN ---
Progress Note - Text Progress Note Date: 01/05/24 CHIEF COMPLAINT: Debility and issues with TPN supplies HISTORY OF PRESENT ILLNESS: No acute events overnight. Patient remains in the ICU. PHYSICAL EXAM: VITAL SIGNS: Reviewed. GENERAL: Well-developed in no acute distress. ABDOMEN: Soft. Nondistended. Ileostomy with brown liquidy stools. No further bleeding. NEUROLOGIC: awake ASSESSMENT: 1. Acute GI bleed at the ileostomy site status post suture and cauterization of bleeding vessel by surgeon 2. History of Crohn's with bowel perforation requiring ileostomy. 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
[2024-01-05 06:21] LABS: Anisocytosis Slight; Basophils % (A) 0 %; Eosinophils # (A) 0.2 k/uL (0-0.7); Eosinophils % (A) 5 %; HCT 27.4 % (39.0-53.0); Hypochromasia Marked; Lymphocytes # (A) 1.1 k/uL (1.0-4.8); Lymphocytes % (A) 26 %; MCH 27.3 pg (25.0-35.0); MCHC 29.3 g/dL (31.0-37.0); MCV 93.2 fL (80.0-100.0); Mean Platelet Volume 8.5; Monocytes # (A) 0.3 k/uL (0-1.0); Monocytes % (A) 7 %; Neutrophils # (A) 2.5 k/uL (1.3-7.7); Neutrophils % (A) 58 %; Platelet Count 286 k/uL (150-450); RBC 2.94 m/uL (4.30-5.90); WBC 4.3 k/uL (3.8-10.6)
[2024-01-05 06:38] LABS: Glucose,Whole Blood 110 mg/dL (70-110)
[2024-01-05 06:39] LABS: African American GFR (CKD) >90 (>60 ml/min/1.73 sqM); Magnesium 2.1 mg/dL (1.6-2.3); Non-African American GFR(CKD) >90 (>60 ml/min/1.73 sqM); Phosphorus 3.1 mg/dL (2.5-4.5)
--- NOTE | 2024-01-05 06:57 | XR ---
EXAMINATION TYPE: XR chest 1V portable DATE OF EXAM: 01/05/2024 COMPARISON: 01/04/2024 HISTORY: Lung status TECHNIQUE: Single frontal view of the chest is obtained. FINDINGS: The left retrocardiac opacity and the right opacity likely combination of pleural fluid and atelectas is are unchanged. The heart and pulmonary vasculature are normal for the technique. The osseous structures are intact. Central venous catheter tip remains in the SVC/RA junction IMPRESSION: Acute cardiopulmonary process with no interval change. [facility], , 01/05/2024 6:55 AM
[2024-01-05] MEDS: POTASSIUM CHLORIDE ER 20 MEQ TAB.ER PO SCH ×2 (09:25→12:18)
--- NOTE | 2024-01-05 09:28 | P.PN ---
Subjective Progress Note Date: 01/04/24 Principal diagnosis: Reason for follow-up is sepsis UTI/pneumonia Patient is a 48-year-old male with a past medical history difficult for CVA TIA DVT did have a history of Crohn's disease with bowel perforation requiring ileostomy and also have a enterocutaneous fistula patient initially presentation to the hospital was weakness not feeling well subsequent did have w orsening of the respiratory status requiring intubation did have a fever concerning for possible pneumonia. On today's evaluation that is 01/04/2024,the patient did have resolution of his fever and is afebrile this morning the patient has been extubated and is breathing comfortably nasal cannula oxygen denies any chest pain he did have some cough no vomiting or any change reported by the nursing staff. Patient white count is 5.0 creatinine 0.53 sputum bronchial culture pending urine is growing Klebsiella that is sensitive to Unasyn Objective - Vital Signs Vital signs: Vital Signs Temp 98.1 F 01/04/24 16:00 Pulse 86 01/04/24 19:56 Resp 22 01/04/24 19:45 BP 125/67 01/02/24 08:45 Pulse Ox 96 01/04/24 19:45 FiO2 50 01/04/24 09:40 Intake & Output 01/04/24 01/04/24 01/05/24 06:59 18:59 06:59 Intake Total 6190.791 2789.222 146 Output Total 3315 8325 1550 Balance 6085.791 -6848.778 -1404 Weight 102.6 kg 102.6 kg Intake: IV 1633.5 1227 26 0.9% KVO 117.5 120 20 0.9% NS Pressure Bag 36 36 6 Ampicillin-Sulbactam 3 gm 100 100 In Sodium Chloride 0.9% 100 ml @ 200 mls/hr IVPB Q6HR [facility] Rx#:[id number] Mvi, Adult No.4 with Vit 120 K 10 ml Trace (Conc-1Ml/ Dose) 1 ml Sodium Chloride 4Meq/ml Vial 50 meq Sodium Acetate 50 meq Calcium Gluconate 1 gm Magnesium Sulfate gm 1 gm Potassium Phosphate 15 mmol In Amino Acid 5%- D15w 1,000 ml @ 120 mls/ hr IV .BY DURATION ANNIE Rx #:[id number] Mvi, Adult No.4 with Vit 275 K 10 ml Trace (Conc-1Ml/ Dose) 1 ml Sodium Chloride 4Meq/ml Vial 50 meq Sodium Acetate 50 meq Calcium Gluconate 1 gm Magnesium Sulfate gm 1 gm Potassium Phosphate 15 mmol In Amino Acid 5%- D15w 1,000 ml @ 55 mls/hr IV .[id number] [facility] Rx#: [id number] Mvi, Adult No.4 with Vit 385 330 K 10 ml Trace (Conc-1Ml/ Dose) 1 ml Sodium Chloride 4Meq/ml Vial 50 meq Sodium Acetate 50 meq Calcium Gluconate 1 gm Magnesium Sulfate gm 1 gm Potassium Phosphate 21 mmol In Amino Acid 5%- D15w 1,000 ml @ 55 mls/hr IV .[id number] [facility] Rx#: [id number] Sodium Chloride 0.9% 1, 220 20 000 ml @ 50 mls/hr IV . Q20H [facility] Rx#:[id number] Vancomycin 1,500 mg In 500 501 Sodium Chloride 0.9% 500 ml 500 ml @ 167 mls/hr IVPB Q16H [facility] Rx#: [id number] Intake, IV Titration 1077.291 260.222 120 Amount Mvi, Adult No.4 with Vit 240 120 K 10 ml Trace (Conc-1Ml/ Dose) 1 ml Sodium Chloride 4Meq/ml Vial 50 meq Sodium Acetate 50 meq Calcium Gluconate 1 gm Magnesium Sulfate gm 1 gm Potassium Phosphate 15 mmol In Amino Acid 5%- D15w 1,000 ml @ 120 mls/ hr IV .BY DURATION ANNIE Rx #:[id number] Mvi, Adult No.4 with Vit 1067.5 K 10 ml Trace (Conc-1Ml/ Dose) 1 ml Sodium Chloride 4Meq/ml Vial 50 meq Sodium Acetate 50 meq Calcium Gluconate 1 gm Magnesium Sulfate gm 1 gm Potassium Phosphate 21 mmol In Amino Acid 5%- D15w 1,000 ml @ 55 mls/hr IV .[id number] [facility] Rx#: [id number] Norepinephrine 32 mg In 9.791 20.222 Sodium Chloride 0.9% 218 ml @ 0.03 MCG/KG/MIN 1. 333 mls/hr IV .Q24H [facility] Rx#:[id number] Oral 3480 1302 Output: Urine 2165 3775 450 Stool 1150 4550 1100 Other: Voiding Method Indwelling Catheter Indwelling Catheter ABP, PAP, CO, CI - Last Documented Arterial Blood Pressure 122/56 - Exam GENERAL DESCRIPTION: Middle-age male intubated on the vent RESPIRATORY SYSTEM: Unlabored breathing , decreased breath sounds at bases HEART: S1 S2 regular rate and rhythm , ABDOMEN: Soft , no tenderness EXTREMITIES: Diffuse swelling to the leg no redness, 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 - Labs CBC & Chem 7: 01/05/24 05:00 01/05/24 05:00 Labs: Abnormal Lab Results - Last 24 Hours (Table) 01/04/24 01/04/24 Range/Units 05:22 05:22 RBC 2.88 L (4.30-5.90) m/uL Hgb 7.9 L (13.0-17.5) gm/dL Hct 27.1 L (39.0-53.0) % MCHC 29.3 L (31.0-37.0) g/dL RDW 16.3 H (11.5-15.5) % Chloride 116 H (98-107) mmol/L Creatinine 0.53 L (0.66-1.25) mg/dL Calcium 8.0 L (8.4-10.2) mg/dL Microbiology - Last 24 Hours (Table) 01/03/24 12:00 Gram Stain - Preliminary Lung Aspirate - Left Bronchial Washings Culture - Preliminary 01/01/24 02:01 Blood Culture - Preliminary Blood Assessment and Plan (1) Pneumonia Current Visit: Yes Status: Acute Code(s): J18.9 - PNEUMONIA, UNSPECIFIED ORGANISM SNOMED Code(s): 766902875 (2) Sepsis Current Visit: No Status: Acute Code(s): A41.9 - SEPSIS, UNSPECIFIED ORGANISM SNOMED Code(s): 80640949 Plan: 1patient with sepsis/septic shock in this patient who did have a fever elevated white count high clinical suspicion of possible left lower lobe pneumonia in this patient who did have multiple comorbidities and complicated intra-abdominal history with history of bowel perforation and did have ileostomy and enterocutaneous fistula keeping in mind the patient has been in and out of the hospital we will need to cover for the resistant gram-positive as well as gram- negative pathogen 2-patient bronchial culture grew MRSA urine is growing Klebsiella that is sensitive to Unasyn 3patient to continue with the vancomycin and Unasyn and monitor his clinical course closely Dictation was produced using [employer] software. please excuse any grammatical, word or spelling errors. Time with Patient: Less than 30
[2024-01-05] MEDS: 1: MVI, ADULT NO.4 WITH VIT K 10 ML, TRACE (CONC-1ML/DOSE) 1 ML, SODIUM CHLORIDE 4MEQ/ML IV SCH (10:06)
[2024-01-05 10:35] LABS: Glucose 111 mg/dL (74-99)
[2024-01-05 10:36] LABS: Anion Gap 0 mmol/L; Potassium 3.2 mmol/L (3.5-5.1); Sodium 146 mmol/L (137-145)
[2024-01-05 10:37] LABS: Carbon Dioxide 32 mmol/L (22-30); Chloride 114 mmol/L (98-107)
[2024-01-05 10:38] LABS: Blood Urea Nitrogen 16 mg/dL (9-20)
[2024-01-05 10:39] LABS: Albumin 2.2 g/dL (3.5-5.0); Total Protein 5.5 g/dL (6.3-8.2)
[2024-01-05 10:40] LABS: Total Bilirubin 0.6 mg/dL (0.2-1.3)
[2024-01-05 10:42] LABS: ALT 19 U/L (4-49); AST 27 U/L (17-59)
[2024-01-05 10:43] LABS: Alkaline Phosphatase 86 U/L (38-126)
--- NOTE | 2024-01-05 11:52 | P.PN ---
Subjective Progress Note Date: 01/05/24 Patient is a 48-year-old male with complex past medical history including CVA, previous DVTs, right BKA, cardiac arrest in 2021, Crohn's disease, enterocutaneous fistulas, previous bowel resection. More recently, patient was admitted 12/13/2023 through 12/25/2023 for pneumonia and respiratory failure due to mucous plugging. He was intubated and placed on mechanical ventilator for approximately 6 days. He did have a bronchoscopy with BAL, microbiology positive for haemophilus influenza. Completed his antibiotics. Was discharged home. Unable to get supplies/TPN on discharge, and returned back to the emergency department on 12/26/2023. He was admitted, and while on the general medical floor. Noted to have some bleeding from his ostomy per the RN. This progressively became more copious, is currently dark red with clots. Previously on therapeutic dose of Lovenox, and this has been stopped. Dr. Munoz is aware of this patient, and he did receive 2 L fluid bolus earlier in the day yesterday. Patient is now hypotensive and symptomatic. 2 units of PRBCs are pending. General surgery is consulted and aware. Hemoglobin has dropped from 13.7 on admission, and is currently 9.8 g/dL. Abdominal and pelvis CT showing several areas of active extravasation noted on early arterial phase imaging within the superficial post operative ventral abdominal wall. Indeterminate whether this area of bleeding lies within a conglomeration of superficial bowel loop or is within the postoperative abdominal wall. No evidence of bowel obstruction. Also, dense bibasilar consolidations noted in the lower lobes. Remainder of patient's CBC includes a WBC count 9.1, hemoglobin 9.8, hematocrit 31.6, plat elets 361. Coags include a PT of 11.2, INR of 1, PTT of 28.4. Most recent BMP: Sodium 126, potassium 6.1, chloride 102, serum bicarb 17, BUN 102, creatinine 1, glucose 203. Hyperkalemia was treated with Lokelma, and is currently down to 5.8 g/dL. Patient is currently being evaluated in the intensive care unit. He is resting comfortably on room air. Alert and oriented x 3. Cold and diaphoretic. Blood pressure hypotensive, despite receiving an additional 1 L fluid bolus. Patient is going to be started on norepinephrine until blood products become available. Continues to have large volume dark blood with blood clots. No nausea or vomiting or hematemesis. No abdominal pain. General surgery currently evaluating patient, and recommendations to follow. On 12/31/2023, the patient is is being seen for a follow-up. No evidence of any bleeding from the abdominal wall. Nevertheless, the patient has a very weak congested cough unable to bring up much sputum. Initially was on 5 L of oxygen by nasal cannula and later on during the day he decompensated and currently is on Airvo in addition to 100% nonrebreather facemask. Obviously, the patient is having upper respiratory secretions and the patient will need a bronchoscopy. Chest x-ray showing smaller lung volumes. No evidence of any acute pulmonary filtration. The patient remains on normal citrate of 75 cc an hour. The patient is on TPN at a rate of 120 cc an hour. Norepinephrine is running at 0.06 mcg/kg/min. He is lethargic and arousable and able to communicate. Family is at the bedside. The white cell count is 15 with a hemoglobin 10.2 and a platelet count of 309. BUN is 105 with a creatinine of 1.04 and a sodium level is at 132 and a potassium level of 4.3 and a bicarb of 17. The patient is on TPN for nutritional support. On 01/01/2024, patient is being seen for a follow-up. Overnight, the patient went into respiratory failure and his blood gas showed severe respiratory acidosis. Noted the patient had extensive mucous plugging and required bronchoscopy yesterday with removal of approximately 30 cc of vascular secretions were essentially purulent. Post bronchoscopy, the patient became hypotensive and sepsis was suspected and the patient accordingly was placed on a combination of Zosyn and vancomycin. Cultures are still pending. Eraxis was also added to broaden antibiotic coverage. The patient this morning is on normal saline at rate of 75 cc an hour. Received a total of 3 L of IV fluid yes terday. Norepinephrine is running at 0.45 mcg/kg/min and the patient is also on vasopressin physiologic dose anteriorly and TPN running at 120 cc an hour. He is currently on assist-control mode of mechanical ventilation. He is sedated with propofol at rate of 40 mcg/kg/min. He is on a tidal volume of 450, rate of 26, FiO2 100% and a PEEP of 5. Blood gas showed a pH of 7.21 with a pCO2 of 42 and pO2 of 88. Chest x-ray shows atelectatic changes in lung bases bilaterally. Phosphorus level was 0.9. Magnesium level is at 1.9. Those need to be replaced. BUN is 82 with a creatinine of 0.9 and sodium levels at 142 with a potassium level of 2.7. WBC count 17.1 with a hemoglobin of 7.8 and a platelet count of 325. 01/02/2024, the patient remains intubated on mechanical ventilator. The patient remains on propofol which is running at 50 mcg/kg/min. The patient is adequately sedated and synchronous with mechanical ventilator. Started on assist-control mode with rate of 26, tidal volume of 450, FiO2 of 50% with a PEEP of 5. Blood gas showed pH of 7.44 with pCO2 of 33 and pO2 of 117. Chest x-ray showed atelectatic changes lung base bilaterally. At the same time, the patient remains on normal saline at rate of 75 cc an hour. He received a total of 4 L of normal saline yesterday. He also is receiving TPN at rate of 55 cc an hour. Norepinephrine is running at 0.19 mcg/min and this has been titrated compared to yesterday and the patient remains on vasopressin 0.03 units an hour. He is afebrile. Antibiotic coverage including combination of Zosyn and vancomycin and Eraxis. Renal function is stable. The patient has no active bleeding from the abdominal wall. The stool was checked for C. difficile and was negative. Sodium is 142, potassium is 2.6, BUN is 43 with a creatinine 0.68. WBC count of 10.7 with a hemoglobin of 8.1 and platelet count of 287. 01/03/2024, the patient is being seen for a follow-up. Remains intubated on the mechanical ventilator. He is on propofol at 50 mcg/kg/min. Nevertheless, he is arousable and is following simple commands even while being on propofol. Chest x-ray shows atelectatic changes in lung base bilaterally. The patient remains on the mechanical ventilator, and he remains essentially on the same ventilator setting which includes an assist-control mode with a tidal volume of 450, rate of 26, FiO2 for 50% and a PEEP of 5. Blood gas showed a pH of 7.45 with a pCO2 of 35 and pO2 of 55. I performed another bedside bronchoscopy and another 15 cc of purulent material was aspirated from the lung bases bilaterally. The bronchial lavage that was collected earlier showed MRSA. Urine culture was also positive for Klebsiella pneumoniae and the patient remains on a combination of Zosyn and vancomycin. Pressor requirements have improved compared to yesterday. The patient remains on norepinephrine running at 0.06 mcg/kg/min. He is also on vasopressin physiologic dose. He is on normal citrate of 50 cc an hour. TPN is running at rate of 55 cc an hour. Blood cultures negative. No active bleeding from his ileostomy or enterocutaneous fistulas. On 01/04/2024, the patient is being seen for a follow-up. The patient was weaned off the mechanical ventilator and the patient was extubated to BiPAP and this morning the patient is on 6 L of O2 nasal cannula. Cough remains weak and the patient is unable to bring up much sputum. His early sputum analysis was positive for MRSA. Chest x-ray from today shows a right-sided pleural effusion and atelectatic changes lung base bilaterally. The patient seems to be calm and comfortable and awake and communicating. He is profoundly weak. He remains on norepinephrine which is running at 0.05 mcg/kg/min. Vasopressin was discontinued. IV fluids are currently at KVO. Remains on TPN for nutritional support. Sodium is at 142, potassium 3.6 BUN is 17 with a creatinine of 0.5. CBC still pending for now. The patient remains on Unasyn and vancomycin. Remains on TPN for nutritional support. He is currently off propofol. Ileostomy is functional and there is no evidence of any bleeding from the ileostomy or the enterocutaneous fistulas. On 01/05/2024, the patient is awake and alert and the patient is currently on a BiPAP is alternating between BiPAP pressures of 12/5 with an FiO2 40% and 40 disimpaction by nasal cannula. Chest x-ray showing atelectasis and possibly development of right-sided pleural effusion. The patient was given diuretics yesterday and the patient has diuresed adequately and he has developed hypokalemia. Fluid balance is -2.5 L over the past 24 hours. Urine output is more than 100 cc an hour. Ileostomy output is normal drop 3.7 L over the past 24 hours. Remains on TPN for nutritional support at a rate of 120 cc an hour. The white cell count of 4.3 with a hemoglobin of 8. Sodium is at 146, BUN 16 with a creatinine of 0.5. Potassium level is at 3.2. Serum bicarb is at 32. Awake and alert. Profoundly weak. Communicating. The patient remains on Unasyn and vancomycin. He is currently off pressors. Objective - Vital Signs Vital signs: Vital Signs Temp 98.9 F 01/05/24 04:00 Pulse 80 01/05/24 07:00 Resp 21 01/05/24 07:00 BP 125/67 01/02/24 08:45 Pulse Ox 97 01/05/24 07:00 FiO2 40 01/05/24 04:00 Intake & Output 01/04/24 01/05/24 01/05/24 18:59 06:59 18:59 Intake Total 2789.222 2830.5 133 Output Total 8325 6050 125 Balance -5535.778 -3219.5 8 Weight 102.6 kg 100.1 kg Intake: IV 1227 1116 133 0.9% KVO 120 120 10 0.9% NS Pressure Bag 36 36 3 Ampicillin-Sulbactam 3 gm 100 In Sodium Chloride 0.9% 100 ml @ 200 mls/hr IVPB Q6HR ANNIE Rx#:[id number] Mvi, Adult No.4 with Vit 120 960 120 K 10 ml Trace (Conc-1Ml/ Dose) 1 ml Sodium Chloride 4Meq/ml Vial 50 meq Sodium Acetate 50 meq Calcium Gluconate 1 gm Magnesium Sulfate gm 1 gm Potassium Phosphate 15 mmol In Amino Acid 5%- D15w 1,000 ml @ 120 mls/ hr IV .BY DURATION ANNIE Rx #:[id number] Mvi, Adult No.4 with Vit 330 K 10 ml Trace (Conc-1Ml/ Dose) 1 ml Sodium Chloride 4Meq/ml Vial 50 meq Sodium Acetate 50 meq Calcium Gluconate 1 gm Magnesium Sulfate gm 1 gm Potassium Phosphate 21 mmol In Amino Acid 5%- D15w 1,000 ml @ 55 mls/hr IV .[id number] ANNIE Rx#: [id number] Sodium Chloride 0.9% 1, 20 000 ml @ 50 mls/hr IV . Q20H ANNIE Rx#:[id number] Vancomycin 1,500 mg In 501 Sodium Chloride 0.9% 500 ml 500 ml @ 167 mls/hr IVPB Q16H ANNIE Rx#: [id number] Intake, IV Titration 349.081 2997.5 Amount Mvi, Adult No.4 with Vit 240 120 K 10 ml Trace (Conc-1Ml/ Dose) 1 ml Sodium Chloride 4Meq/ml Vial 50 meq Sodium Acetate 50 meq Calcium Gluconate 1 gm Magnesium Sulfate gm 1 gm Potassium Phosphate 15 mmol In Amino Acid 5%- D15w 1,000 ml @ 120 mls/ hr IV .BY DURATION ANNIE Rx #:[id number] Norepinephrine 32 mg In 20.222 Sodium Chloride 0.9% 218 ml @ 0.03 MCG/KG/MIN 1. 333 mls/hr IV .Q24H ANNIE Rx#:[id number] Sodium Chloride 4Meq/ml 1054.5 Vial 50 meq Sodium Acetate 50 meq Calcium Gluconate 1 gm Magnesium Sulfate gm 1 gm Potassium Phosphate 15 mmol In Amino Acid 5%-D15w 1,000 ml @ 120 mls/hr IV .BY DURATION ANNIE Rx#: [id number] Oral 1302 540 Output: Urine 3775 2350 125 Stool 4550 3700 Other: Voiding Method Indwelling Catheter Indwelling Catheter ABP, PAP, CO, CI - Last Documented Arterial Blood Pressure 138/52 - Exam GENERAL EXAM: 48-year-old male, awake and alert and communicating on a BiPAP at a pressure of 12 over 5 cm of water HEAD: Normocephalic and atraumatic EYES: Normal reaction of pupils, equal size. NOSE: Clear with pink turbinates. THROAT: No erythema or exudates. NECK: No masses, no JVD. CHEST: No chest wall deformity. Left subclavian double-lumen central line LUNGS: Equal air entry with no crackles, wheeze, rhonchi or dullness. On room air. No conversational dyspnea or accessory muscle use.. The patient has diminished breath sounds in very weak cough. No stridor. CVS: S1 and S2 normal with no audible murmur, regular rhythm. No extra heart sounds ABDOMEN: Ileostomy with brown stool, no evidence of any bleeding.. Bowel sounds present. Abdomen is soft and nontender. No organomegaly. SPINE: No scoliosis or deformity SKIN: No rashes CENTRAL NERVOUS SYSTEM: Sedated on propofol. EXTREMITIES: Right BKA, left leg weakness and left foot drop, remaining distal pulses are weak and only found with Doppler. Extremities are showing diminished pulses bilaterally otherwise no significant cyanosis. - Labs CBC & Chem 7: 01/05/24 05:00 01/05/24 05:00 Labs: Abnormal Lab Results - Last 24 Hours (Table) 01/04/24 01/05/24 01/05/24 Range/Units 05:22 05:00 05:00 RBC 2.88 L 2.94 L (4.30-5.90) m/uL Hgb 7.9 L 8.0 L (13.0-17.5) gm/dL Hct 27.1 L 27.4 L (39.0-53.0) % MCHC 29.3 L 29.3 L (31.0-37.0) g/dL RDW 16.3 H 16.0 H (11.5-15.5) % Chloride 113 H (98-107) mmol/L Creatinine 0.37 L (0.66-1.25) mg/dL Glucose 127 H (74-99) mg/dL Calcium 7.8 L (8.4-10.2) mg/dL Alkaline Phosphatase 152 H (38-126) U/L Total Protein 5.6 L (6.3-8.2) g/dL Albumin 2.8 L (3.5-5.0) g/dL Microbiology - Last 24 Hours (Table) 01/03/24 12:00 Gram Stain - Preliminary Lung Aspirate - Left Bronchial Washings Culture - Preliminary 01/01/24 02:01 Blood Culture - Preliminary Blood Assessment and Plan Assessment: Abdominal wall versus GI bleeding. The patient encountered acute GI bleeding vs bleeding from the abdominal wall, Abdominal and pelvis CT showing several areas of active extravasation noted on early arterial phase imaging within the superficial post operative ventral abdominal wall. Indeterminate whether this area of bleeding lies within a conglomeration of superficial bowel loop or is within the postoperative abdominal wall. No evidence of bowel obstruction. No evidence of any active bleeding for now. Ileostomy output is considerably high in the order of 3.7 L over the past 24 hours Acute blood loss anemia, secondary to above, 2 units PRBCs transfused and the patient is currently running a stable hemoglobin, awaiting hemoglobin from today Acute hypoxic respiratory failure, with bilateral pneumonia in the lung bases /atelectasis and the bronchial lavage that was done earlier was positive for MRSA. Suspect MRSA pneumonia. The patient had another bronchoscopy on 01/03/2024 prior to his extubation. He was extubated to a BiPAP and currently is on 6 L of O2 nasal cannula. Patient is currently on vancomycin. For now, the patient is alternating between oxygen at 6 L and a BiPAP. Chest x-ray findings were noted. 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 The patient is currently off pressors Electrolyte imbalance with hypomagnesium , hypophosphatemia and hypokalemia. Improved. Potassium is to be replaced again Recent history of ventilator dependent respiratory failure, secondary to pneumonia, microbiology from BAL positive for haemophilus influenzae History of DVT, previously on therapeutic dose of Lovenox, which is currently stopped History of Crohn's disease complicated by bowel perforation status post colectomy and diverting ileostomy. 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 Currently receiving TPN for nutritional support. 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 cardiac asystole/arrest in 2021 History of tracheostomy and reversal Plan: Patient was extubated and the patient is alternating between BiPAP and oxygen 6 L nasal cannula Aggressive pulmonary toileting Chest PT Provide incentive spirometer Wean off pressors and discontinue today No need for further diuretics Replace potassium Antibiotic coverage with a combination of Unasyn and vancomycin Continue TPN for nutritional support Monitor hemoglobin Lovenox 40 mg subcu for DVT prophylaxis Protonix twice daily Will continue to monitor and follow-up this patient will do the rest of the consultants. Further recommendations are to follow. This evaluation was done and more than 30 minutes. This is working progress. Time with Patient: Greater than 30
--- NOTE | 2024-01-05 13:05 | P.PN ---
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 Patient came back to the ER today because of debility and having issues with his TPN supplies. There has been some issues with primary care appointments and orders with TPN requiring signature from his PCP. At this time patient denies any chest pain or shortness of breath. There was no complaint of fever or chills. Denies any nausea, vomiting, abdominal pain. Denies any lightheaded dizziness. Initial lab work done in the ER showed W6.3, hemoglobin 20.7, platelet count 264, sodium 130, potassium 4.9, BUN 20, creatinine 0.41, phosphorus 2.4, alk phos 133, total protein 9 Patient admitted to internal medicine service 12/26. Patient seen and examined. Complaining of pain in his right hand. Александр es any shortness of breath /12. Patient seen and examined. Potassium level this morning was 5.5, patient was getting potassium supplementation, will DC it for now. 12/28. Patient seen and examined. Patient had a rapid response called overnight for low blood pressure, patient was given 2-1/2 L of fluid. Labs on this morning showed WBC 10.4, hemoglobin 14.4, platelet count 420, sodium 124, potassium 5.5, BUN 104, creatinine 1.59. Ostomy output is blood-tinged. 12/30/2023 Patient continues in the ICU requiring low-dose pressor support and currently being weaned. Multiple consultations following including general surgery and did a washout of the abdomen early this morning along with cauterizing and placing sutures to an area near the ostomy that had been bleeding. Hemoglobin is stable and is being closely monitored with hemoglobins every 6 hours. Transfuse if 7 or less. Patient to continue with strict n.p.o. and is maintained on TPN. Blood sugars have been more elevated and will add long- acting and adjust insulins accordingly 12/31/2023 Patient continues in the ICU with multiple consultations following. Patient requiring increased oxygen demands currently on 6 L and transition to Airvo and pulmonary dynamite cartridge crimper following planning on bronchoscopy today. Patient is afeb rile although continues with an elevated white count and hemoglobin is stable above 8 with no active bleeding noted. Patient is n.p.o. maintained on TPN at this time. Blood sugars continue to be in the 200s consistently and will adjust long-acting and continue sliding scale. 01/01/2024 patient is seen in follow up today and experienced increasing respiratory demands and became more obtunded and unresponsive requiring mechanical ventilation. Patient FiO2 is 50% with a PEEP of 8 and is status post bronchoscopy yesterday. Patient maintained on Levophed and vasopressin along with propofol. White count is elevated and patient is continued on IV antibiotics in the form of vancomycin and Zosyn. Cultures have been sent and pending at this time. Will consult infectious disease and appreciate input and recommendations. Hemoglobin is stable at 7.8 with no active bleeding noted. Potassium 2.7 and magnesium 1.5 along with phosphorus 0.9 and being replaced per protocol. Kidney functions remained stable at this time other than a chloride of 115 and sodium is 142. Patient is also being started on Eraxis. Recommend adjusting TPN per dietary and pharmacy. Overall prognosis remains ex tremely guarded at this time. 01/02/2024 Patient is evaluated in the intensive care unit he is currently intubated however he is awake alert oriented with eye moving and able to respond with nods to simple questions. Pressor support in the process of being weaned her blood pressure 144/65. Mechanical ventilator with an FiO2 of 50% and a PEEP of . Continues on TPN. Rectal tube in place continues with loose stools. C.Dif was negative. Cultures currently pending. Remains on Antibiotics with IV Zosyn, IV vancomycin as well as IV anidulafungin. Procalcitonin level was mildly elevated at 1.38. X-ray this morning reveals basilar atelectasis on the left as well as right midlung. Has white blood cell count is down to 10.7 today hemoglobin of 8.1. Sodium level is 142, potassium 2.6, BUN of 43 creatinine of 0.68. Magnesium 1.7. Blood glucose in the 150s continues on Levemir twice a day for this. 01/03/2024 Patient is seen in follow-up today remains intubated and discussing possible extubation today with pulmonary following scheduled to undergo bronchoscopy as well. Patient is maintained on antibiotics with infectious disease following while awaiting urine cultures as well as sputum culture showing MRSA. Preliminary urine is gram-negative and will continue current antibiotic regimen. Patient remains on low-dose pressor support and attempting to wean. TPN continues and tolerating. Continue to monitor Accu-Cheks and continue current regimen although blood sugars have been a little lower today. Recommend Accu- Cheks before meals and at bedtime and 2 AM. Patient is alert and responding on exam as propofol is off. Patient extremely weak and lethargic and falls asleep during conversation. Patient also appears frustrated as he is unable to communicate due to intubation 01/03. Patient seen and examined. 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 Patient received IV Lasix this morning. No bleeding around the ileostomy site. 01/04. Patient examined. Potassium placement ordered. States he feels better compared to yesterday. Denies any chest pain REVIEW OF SYSTEMS: CONSTITUTIONAL: No fever, no malaise,. Complaining of lethargy CARDIOVASCULAR: No chest pain, no palpitations, no syncope. PULMONARY: No shortness of breath, no cough, GASTROINTESTINAL: No diarrhea, no nausea, no vomiting, no abdominal pain. NEUROLOGICAL: No headaches, no weakness, PHYSICAL EXAMINATION: GENERAL: The patient is alert and oriented x3, ill looking HEENT: Pupils are round and equally reacting to light. EOMI. No scleral icterus. No conjunctival pallor. Normocephalic, atraumatic. No pharyngeal erythema. No thyromegaly. CARDIOVASCULAR: S1 and S2 present. No murmurs, rubs, or gallops. PULMONARY: Diminished breath sound the bases bilaterally ABDOMEN: Soft, nontender, nondistended,. Ostomy seen MUSCULOSKELETAL: No joint swelling or deformity. Right BKA EXTREMITIES: No cyanosis, clubbing, or pedal edema. NEUROLOGICAL: Gross neurological examination did not reveal any focal deficits. SKIN: No rashes. Assessment and plan Hypotension with hypotensive shock requiring pressor support likely secondary to acute GI bleed and hypovolemia Acute GI bleed from the ostomy secondary to an abdominal wall extravasation near the ostomy requiring sutures and cauterization 12/30/2023, resolved Acute blood loss anemia secondary to above acute kidney injury secondary to hypotension Possible acute urinary tract infection, secondary to indwelling Medina catheter, cultures preliminary showing gram-negative bacilli History of DVT Acute on chronic hypoxic respiratory failure requiring Airvo, status post bronchoscopy today 12/31/2023, with worsening respiratory distress requiring mechanical ventilation overnight 01/01/2024, discussing extubation today 01/03/2024 and awaiting undergo repeat bronchoscopy today Leukocytosis, trending down, was started on Vanco and Zosyn also IV eraxis Moderate protein calorie malnutrition maintained on TPN Hyperkalemia, improved status post Lokelma Hyponatremia history of Crohn disease complicated with bowel perforation requiring ileostomy, also has 2 fistula in his anterior abdominal Wall, patient also has left upper chest portal to receive right lower extremity arterial clot and 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 Continue IV Unasyn and vancomycin Monitor blood sugar levels, continue current insulin regimen Critical care following Surgery following ID following Labs and medication were reviewed.. Continue same treatment. Continue with symptomatic treatment. Resume home medication. Monitor labs and vitals. DVT and GI prophylaxis. Further recommendations as per clinical course of the patient Dictation was produced using [employer] dictation software. please excuse any grammatical, word or spelling errors. Objective - Vital Signs Vital signs: Vital Signs Temp 98.1 F 01/05/24 08:00 Pulse 80 01/05/24 12:00 Resp 16 01/05/24 12:00 BP 129/67 01/05/24 11:00 Pulse Ox 97 01/05/24 11:00 FiO2 40 01/05/24 11:45 Intake & Output 01/04/24 01/05/24 01/05/24 18:59 06:59 18:59 Intake Total 2789.222 2830.5 932 Output Total 8325 6050 575 Balance -5535.778 -3219.5 357 Weight 102.6 kg 100.1 kg Intake: IV 1227 1116 532 0.9% KVO 120 120 40 0.9% NS Pressure Bag 36 36 12 Ampicillin-Sulbactam 3 gm 100 In Sodium Chloride 0.9% 100 ml @ 200 mls/hr IVPB Q6HR ANNIE Rx#:[id number] Mvi, Adult No.4 with Vit 120 960 480 K 10 ml Trace (Conc-1Ml/ Dose) 1 ml Sodium Chloride 4Meq/ml Vial 50 meq Sodium Acetate 50 meq Calcium Gluconate 1 gm Magnesium Sulfate gm 1 gm Potassium Phosphate 15 mmol In Amino Acid 5%- D15w 1,000 ml @ 120 mls/ hr IV .BY DURATION [facility] Rx #:[id number] Mvi, Adult No.4 with Vit 330 K 10 ml Trace (Conc-1Ml/ Dose) 1 ml Sodium Chloride 4Meq/ml Vial 50 meq Sodium Acetate 50 meq Calcium Gluconate 1 gm Magnesium Sulfate gm 1 gm Potassium Phosphate 21 mmol In Amino Acid 5%- D15w 1,000 ml @ 55 mls/hr IV .[id number] ANNIE Rx#: [id number] Sodium Chloride 0.9% 1, 20 000 ml @ 50 mls/hr IV . Q20H ANNIE Rx#:[id number] Vancomycin 1,500 mg In 501 Sodium Chloride 0.9% 500 ml 500 ml @ 167 mls/hr IVPB Q16H ANNIE Rx#: [id number] Intake, IV Titration 486.787 1771.5 Amount Mvi, Adult No.4 with Vit 240 120 K 10 ml Trace (Conc-1Ml/ Dose) 1 ml Sodium Chloride 4Meq/ml Vial 50 meq Sodium Acetate 50 meq Calcium Gluconate 1 gm Magnesium Sulfate gm 1 gm Potassium Phosphate 15 mmol In Amino Acid 5%- D15w 1,000 ml @ 120 mls/ hr IV .BY DURATION [facility] Rx #:[id number] Norepinephrine 32 mg In 20.222 Sodium Chloride 0.9% 218 ml @ 0.03 MCG/KG/MIN 1. 333 mls/hr IV .Q24H ANNIE Rx#:[id number] Sodium Chloride 4Meq/ml 1054.5 Vial 50 meq Sodium Acetate 50 meq Calcium Gluconate 1 gm Magnesium Sulfate gm 1 gm Potassium Phosphate 15 mmol In Amino Acid 5%-D15w 1,000 ml @ 120 mls/hr IV .BY DURATION [facility] Rx#: [id number] Oral 1302 540 400 Output: Urine 3775 2350 575 Stool 4550 3700 Other: Voiding Method Indwelling Catheter Indwelling Catheter ABP, PAP, CO, CI - Last Documented Arterial Blood Pressure 112/109 - Labs CBC & Chem 7: 01/05/24 05:00 01/05/24 05:00 Labs: Abnormal Lab Results - Last 24 Hours (Table) 01/04/24 01/05/24 01/05/24 Range/Units 05:22 05:00 05:00 RBC 2.88 L 2.94 L (4.30-5.90) m/uL Hgb 7.9 L 8.0 L (13.0-17.5) gm/dL Hct 27.1 L 27.4 L (39.0-53.0) % MCHC 29.3 L 29.3 L (31.0-37.0) g/dL RDW 16.3 H 16.0 H (11.5-15.5) % Sodium 146 H (137-145) mmol/L Potassium 3.2 L (3.5-5.1) mmol/L Chloride 114 H (98-107) mmol/L Carbon Dioxide 32 H (22-30) mmol/L Creatinine 0.54 L (0.66-1.25) mg/dL Glucose 111 H (74-99) mg/dL Calcium 8.0 L (8.4-10.2) mg/dL Total Protein 5.5 L (6.3-8.2) g/dL Albumin 2.2 L (3.5-5.0) g/dL Microbiology - Last 24 Hours (Table) 01/03/24 12:00 Gram Stain - Preliminary Lung Aspirate - Left Bronchial Washings Culture - Preliminary 01/01/24 02:01 Blood Culture - Preliminary Blood
[2024-01-05 17:41] LABS: Glucose,Whole Blood 133 mg/dL (70-110)
--- NOTE | 2024-01-05 21:06 | P.PN ---
Subjective Progress Note Date: 01/05/24 Principal diagnosis: Reason for follow-up is sepsis UTI/pneumonia Patient is a 48-year-old male with a past medical history difficult for CVA TIA DVT did have a history of Crohn's disease with bowel perforation requiring ileostomy and also have a enterocutaneous fistula patient initially presentation to the hospital was weakness not feeling well subsequent did have w orsening of the respiratory status requiring intubation did have a fever concerning for possible pneumonia. On today's evaluation that is 01/05/2024, the patient continues to be afebrile, the patient is on 4 L nasal oxygen and breathing comfortably, the Pt denies having any chest pain or worsening cough, the patient denies having any abdominal pain no vomiting still have significant output through his ileostomy and fistula. Patient white count is normalized to 4.3, creatinine 0.5 4 repeat bronchoscopy culture growing Klebsiella sensitivities pending Objective - Vital Signs Vital signs: Vital Signs Temp 98.0 F 01/05/24 12:00 Pulse 83 01/05/24 13:00 Resp 24 01/05/24 13:00 BP 120/68 01/05/24 13:00 Pulse Ox 96 01/05/24 13:00 FiO2 40 01/05/24 11:45 Intake & Output 01/04/24 01/05/24 01/05/24 18:59 06:59 18:59 Intake Total 2789.222 2830.5 932 Output Total 8325 6050 575 Balance -5535.778 -3219.5 357 Weight 102.6 kg 100.1 kg Intake: IV 1227 1116 532 0.9% KVO 120 120 40 0.9% NS Pressure Bag 36 36 12 Ampicillin-Sulbactam 3 gm 100 In Sodium Chloride 0.9% 100 ml @ 200 mls/hr IVPB Q6HR ANNIE Rx#:[id number] Mvi, Adult No.4 with Vit 120 960 480 K 10 ml Trace (Conc-1Ml/ Dose) 1 ml Sodium Chloride 4Meq/ml Vial 50 meq Sodium Acetate 50 meq Calcium Gluconate 1 gm Magnesium Sulfate gm 1 gm Potassium Phosphate 15 mmol In Amino Acid 5%- D15w 1,000 ml @ 120 mls/ hr IV .BY DURATION [facility]IE Rx #:[id number] Mvi, Adult No.4 with Vit 330 K 10 ml Trace (Conc-1Ml/ Dose) 1 ml Sodium Chloride 4Meq/ml Vial 50 meq Sodium Acetate 50 meq Calcium Gluconate 1 gm Magnesium Sulfate gm 1 gm Potassium Phosphate 21 mmol In Amino Acid 5%- D15w 1,000 ml @ 55 mls/hr IV .[id number] ANNIE Rx#: [id number] Sodium Chloride 0.9% 1, 20 000 ml @ 50 mls/hr IV . Q20H ANNIE Rx#:[id number] Vancomycin 1,500 mg In 501 Sodium Chloride 0.9% 500 ml 500 ml @ 167 mls/hr IVPB Q16H ANNIE Rx#: [id number] Intake, IV Titration 762.055 9537.5 Amount Mvi, Adult No.4 with Vit 240 120 K 10 ml Trace (Conc-1Ml/ Dose) 1 ml Sodium Chloride 4Meq/ml Vial 50 meq Sodium Acetate 50 meq Calcium Gluconate 1 gm Magnesium Sulfate gm 1 gm Potassium Phosphate 15 mmol In Amino Acid 5%- D15w 1,000 ml @ 120 mls/ hr IV .BY DURATION [facility] Rx #:[id number] Norepinephrine 32 mg In 20.222 Sodium Chloride 0.9% 218 ml @ 0.03 MCG/KG/MIN 1. 333 mls/hr IV .Q24H ANNIE Rx#:[id number] Sodium Chloride 4Meq/ml 1054.5 Vial 50 meq Sodium Acetate 50 meq Calcium Gluconate 1 gm Magnesium Sulfate gm 1 gm Potassium Phosphate 15 mmol In Amino Acid 5%-D15w 1,000 ml @ 120 mls/hr IV .BY DURATION [facility] Rx#: [id number] Oral 1302 540 400 Output: Urine 3775 2350 575 Stool 4550 3700 Other: Voiding Method Indwelling Catheter Indwelling Catheter ABP, PAP, CO, CI - Last Documented Arterial Blood Pressure 112/109 - Exam GENERAL DESCRIPTION: Middle-age male intubated on the vent RESPIRATORY SYSTEM: Unlabored breathing , decreased breath sounds at bases HEART: S1 S2 regular rate and rhythm , ABDOMEN: Soft , no tenderness EXTREMITIES: Diffuse swelling to the leg no redness, 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 - Labs CBC & Chem 7: 01/05/24 05:00 01/05/24 05:00 Labs: Abnormal Lab Results - Last 24 Hours (Table) 01/04/24 01/05/24 01/05/24 Range/Units 05:22 05:00 05:00 RBC 2.88 L 2.94 L (4.30-5.90) m/uL Hgb 7.9 L 8.0 L (13.0-17.5) gm/dL Hct 27.1 L 27.4 L (39.0-53.0) % MCHC 29.3 L 29.3 L (31.0-37.0) g/dL RDW 16.3 H 16.0 H (11.5-15.5) % Sodium 146 H (137-145) mmol/L Potassium 3.2 L (3.5-5.1) mmol/L Chloride 114 H (98-107) mmol/L Carbon Dioxide 32 H (22-30) mmol/L Creatinine 0.54 L (0.66-1.25) mg/dL Glucose 111 H (74-99) mg/dL Calcium 8.0 L (8.4-10.2) mg/dL Total Protein 5.5 L (6.3-8.2) g/dL Albumin 2.2 L (3.5-5.0) g/dL Microbiology - Last 24 Hours (Table) 01/03/24 12:00 Gram Stain - Preliminary Lung Aspirate - Left Bronchial Washings Culture - Preliminary Klebsiella pneumoniae Bella glabrata 01/01/24 02:01 Blood Culture - Preliminary Blood Assessment and Plan (1) Pneumonia Current Visit: Yes Status: Acute Code(s): J18.9 - PNEUMONIA, UNSPECIFIED ORGANISM SNOMED Code(s): 720923071 (2) Sepsis Current Visit: No Status: Acute Code(s): A41.9 - SEPSIS, UNSPECIFIED ORGANISM SNOMED Code(s): 58841105 Plan: 1patient with sepsis/septic shock in this patient who did have a fever elevated white count high clinical suspicion of possible left lower lobe pneumonia in this patient who did have multiple comorbidities and complicated intra-abdominal history with history of bowel perforation and did have ileostomy and enterocutaneous fistula keeping in mind the patient has been in and out of the hospital we will need to cover for the resistant gram-positive as well as gram- negative pathogen 2-patient bronchial culture grew MRSA urine is growing Klebsiella that is sensitive to Unasyn, repeat bronchoscopy cultures are growing Klebsiella and Bella with sensitivities pending 3patient to continue with the vancomycin and Unasyn in view of clinical improvement and monitor his clinical course closely Dictation was produced using [employer] dictation software. please excuse any grammatical, word or spelling errors. Time with Patient: Less than 30
[2024-01-06 05:03] LABS: Glucose,Whole Blood 107 mg/dL (70-110)
[2024-01-06 05:19] LABS: Basophils % (A) 0 %; Eosinophils # (A) 0.3 k/uL (0-0.7); Eosinophils % (A) 6 %; HCT 27.1 % (39.0-53.0); HGB 7.9 gm/dL (13.0-17.5); Hypochromasia Marked; Lymphocytes # (A) 1.2 k/uL (1.0-4.8); Lymphocytes % (A) 27 %; MCH 27.2 pg (25.0-35.0); MCHC 29.1 g/dL (31.0-37.0); MCV 93.3 fL (80.0-100.0); Mean Platelet Volume 9.2; Monocytes # (A) 0.2 k/uL (0-1.0); Monocytes % (A) 4 %; Neutrophils # (A) 2.6 k/uL (1.3-7.7); Neutrophils % (A) 58 %; Platelet Count 272 k/uL (150-450); RDW 15.8 % (11.5-15.5); WBC 4.5 k/uL (3.8-10.6)
[2024-01-06 05:36] LABS: African American GFR (CKD) >90 (>60 ml/min/1.73 sqM); Anion Gap -4 mmol/L; Blood Urea Nitrogen 17 mg/dL (9-20); Calcium 8.1 mg/dL (8.4-10.2); Carbon Dioxide 35 mmol/L (22-30); Chloride 111 mmol/L (98-107); Glucose 106 mg/dL (74-99); Magnesium 2.1 mg/dL (1.6-2.3); Non-African American GFR(CKD) >90 (>60 ml/min/1.73 sqM); Potassium 3.6 mmol/L (3.5-5.1); Sodium 142 mmol/L (137-145)
--- NOTE | 2024-01-06 07:54 | XR ---
EXAMINATION TYPE: XR chest 1V portable DATE OF EXAM: 01/06/2024 Comparison: 01/05/2024 Clinical History: 48 year-old male ICU follow-up, assess lung status Findings: Left-sided CVC catheter with tip at the cavoatrial junction. Surgical clips at the right base of the neck. Heart upper limits of normal in size. Semiupright exam causing hazy density along the right hem ithorax likely from layering pleural effusion. Interstitial density on the left is slightly increased . Patchy opacity at the left base persists. Impression: Semiupright exam with hazy density on the right likely due to a layering pleural effusion. Interstiti al density on the left is increased and may reflect developing pulmonary vascular congestion. Patchy left basilar opacity persists. [facility], , 01/06/2024 7:52 AM
[2024-01-06] MEDS ORDERED: FAT EMULSION 20% 500 ML IV SCH (09:00)
[2024-01-06] MEDS: VANCOMYCIN TROUGH DUE 1 EACH MISC MISCELLANE ONE (09:29)
[2024-01-06] MEDS: POTASSIUM CHLORIDE ER 20 MEQ TAB.ER PO SCH (09:29)
[2024-01-06] MEDS: FAT EMULSION 20% 250 ML IV SCH (09:30)
--- NOTE | 2024-01-06 10:23 | P.PN ---
Subjective Progress Note Date: 01/06/24 Principal diagnosis: Acute hypoxic respiratory failure with bilateral pneumonia secondary to MRSA On 01/04/2024, the patient is being seen for a follow-up. The patient was weane d off the mechanical ventilator and the patient was extubated to BiPAP and this morning the patient is on 6 L of O2 nasal cannula. Cough remains weak and the patient is unable to bring up much sputum. His early sputum analysis was positive for MRSA. Chest x-ray from today shows a right-sided pleural effusion and atelectatic changes lung base bilaterally. The patient seems to be calm and comfortable and awake and communicating. He is profoundly weak. He remains on norepinephrine which is running at 0.05 mcg/kg/min. Vasopressin was discontinued. IV fluids are currently at KVO. Remains on TPN for nutritional support. Sodium is at 142, potassium 3.6 BUN is 17 with a creatinine of 0.5. CBC still pending for now. The patient remains on Unasyn and vancomycin. Remains on TPN for nutritional support. He is currently off propofol. Ileostomy is functional and there is no evidence of any bleeding from the ileostomy or the enterocutaneous fistulas. On 01/05/2024, the patient is awake and alert and the patient is currently on a BiPAP is alternating between BiPAP pressures of 12/5 with an FiO2 40% and 40 disimpaction by nasal cannula. Chest x-ray showing atelectasis and possibly development of right-sided pleural effusion. The patient was given diuretics yesterday and the patient has diuresed adequately and he has developed hypokalemia. Fluid balance is -2.5 L over the past 24 hours. Urine output is more than 100 cc an hour. Ileostomy output is normal drop 3.7 L over the past 24 hours. Remains on TPN for nutritional support at a rate of 120 cc an hour. The white cell count of 4.3 with a hemoglobin of 8. Sodium is at 146, BUN 16 with a creatinine of 0.5. Potassium level is at 3.2. Serum bicarb is at 32. Awake and alert. Profoundly weak. Communicating. The patient remains on Unasyn and vancomycin. He is currently off pressors. Patient was seen today on 01/06/2024, remains in the ICU, on BiPAP 12/5/40% remains on antibiotics in the form of Unasyn and vancomycin remains on TPN at 120 cc/h. Chest x-ray continues to show atelectasis and small right-sided pleural effusion patient remains on diuretics, and he diuresed adequately. Continues to diurese, and continues to have good urine output. Continues to have significant ileostomy output. Patient remains on TPN for nutritional support. Labs showed WBC count 4.5 hemoglobin 7.9 basic metabolic profile is normal bicarb is 35 renal profile is normal Objective - Vital Signs Vital signs: Vital Signs Temp 97.8 F 01/06/24 08:00 Pulse 91 01/06/24 10:00 Resp 17 01/06/24 10:00 BP 112/62 01/06/24 10:00 Pulse Ox 92 L 01/06/24 10:00 FiO2 50 01/06/24 08:03 Intake & Output 01/05/24 01/06/24 01/06/24 18:59 06:59 18:59 Intake Total 2414 3093.5 812 Output Total 3575 3675 500 Balance -1161 -581.5 312 Weight 101.6 kg Intake: IV 1696 1596 172 0.9% KVO 120 120 40 0.9% NS Pressure Bag 36 36 12 Ampicillin-Sulbactam 3 gm 100 In Sodium Chloride 0.9% 100 ml @ 200 mls/hr IVPB Q6HR [facility] Rx#:[id number] Mvi, Adult No.4 with Vit 1440 1440 120 K 10 ml Trace (Conc-1Ml/ Dose) 1 ml Sodium Chloride 4Meq/ml Vial 50 meq Sodium Acetate 50 meq Calcium Gluconate 1 gm Magnesium Sulfate gm 1 gm Potassium Phosphate 15 mmol In Amino Acid 5%- D15w 1,000 ml @ 120 mls/ hr IV .BY DURATION [facility] Rx #:[id number] Intake, IV Titration 1047.5 640 Amount Fat Emulsion 20% 250 ml @ 20 20.833 mls/hr IV [facility] Rx#:[id number] Mvi, Adult No.4 with Vit 120 K 10 ml Trace (Conc-1Ml/ Dose) 1 ml Sodium Chloride 4Meq/ml Vial 50 meq Sodium Acetate 36 meq Calcium Gluconate 1 gm Magnesium Sulfate gm 1 gm Potassium Phosphate 15 mmol In Amino Acid 5%- D15w 1,000 ml @ 120 mls/ hr IV .BY DURATION [facility] Rx #:[id number] Sodium Chloride 4Meq/ml 1047.5 Vial 50 meq Sodium Acetate 36 meq Calcium Gluconate 1 gm Magnesium Sulfate gm 1 gm Potassium Phosphate 15 mmol In Amino Acid 5%-D15w 1,000 ml @ 120 mls/hr IV .BY DURATION [facility] Rx#: [id number] Vancomycin 1,500 mg In 500 Sodium Chloride 0.9% 500 ml 500 ml @ 167 mls/hr IVPB Q16H [facility] Rx#: [id number] Oral 718 450 Output: Urine 1625 2475 500 Stool 1950 1200 Other: Voiding Method Indwelling Catheter Indwelling Catheter Indwelling Catheter ABP, PAP, CO, CI - Last Documented Arterial Blood Pressure 144/67 - Exam GENERAL EXAM: 48-year-old male, on BiPAP, not in distress. HEAD: Normocephalic and atraumatic EYES: Normal reaction of pupils, equal size. NOSE: Clear with pink turbinates. THROAT: No erythema or exudates. NECK: No masses, no JVD. CHEST: No chest wall deformity. Left subclavian double-lumen central line LUNGS: Equal air entry with no crackles, wheeze, rhonchi or dullness. On room air. No conversational dyspnea or accessory muscle use.. The patient has diminished breath sounds in very weak cough. No stridor. CVS: S1 and S2 normal with no audible murmur, regular rhythm. No extra heart sounds ABDOMEN: Ileostomy with brown stool, no evidence of any bleeding.. Bowel sounds present. Abdomen is soft and nontender. No organomegaly. Multiple surgical scars noted throughout the whole abdomen. SKIN: No rashes CENTRAL NERVOUS SYSTEM: Arousable, follows simple instructions, no gross focal neurologic deficit. EXTREMITIES: Right BKA, left leg weakness and left foot drop, remaining distal pulses are weak and only found with Doppler. Extremities are showing diminished pulses bilaterally otherwise no significant cyanosis. - Labs CBC & Chem 7: 01/06/24 05:00 01/06/24 05:00 Labs: Abnormal Lab Results - Last 24 Hours (Table) 01/05/24 01/05/24 01/06/24 Range/Units 05:00 17:39 05:00 RBC (4.30-5.90) m/uL Hgb (13.0-17.5) gm/dL Hct (39.0-53.0) % MCHC (31.0-37.0) g/dL RDW (11.5-15.5) % Sodium 146 H (137-145) mmol/L Potassium 3.2 L (3.5-5.1) mmol/L Chloride 114 H 111 H (98-107) mmol/L Carbon Dioxide 32 H 35 H (22-30) mmol/L Creatinine 0.54 L 0.51 L (0.66-1.25) mg/dL Glucose 111 H 106 H (74-99) mg/dL POC Glucose (mg/dL) 133 H (70-110) mg/dL Calcium 8.0 L 8.1 L (8.4-10.2) mg/dL Total Protein 5.5 L (6.3-8.2) g/dL Albumin 2.2 L (3.5-5.0) g/dL Triglycerides (0.00-149.00) mg/dL 01/06/24 01/06/24 Range/Units 05:00 05:00 RBC 2.90 L (4.30-5.90) m/uL Hgb 7.9 L (13.0-17.5) gm/dL Hct 27.1 L (39.0-53.0) % MCHC 29.1 L (31.0-37.0) g/dL RDW 15.8 H (11.5-15.5) % Sodium (137-145) mmol/L Potassium (3.5-5.1) mmol/L Chloride (98-107) mmol/L Carbon Dioxide (22-30) mmol/L Creatinine (0.66-1.25) mg/dL Glucose (74-99) mg/dL POC Glucose (mg/dL) (70-110) mg/dL Calcium (8.4-10.2) mg/dL Total Protein (6.3-8.2) g/dL Albumin (3.5-5.0) g/dL Triglycerides 175.00 H (0.00-149.00) mg/dL Microbiology - Last 24 Hours (Table) 01/03/24 12:00 Gram Stain - Final Lung Aspirate - Left Bronchial Washings Culture - Final Klebsiella pneumoniae Bella glabrata Assessment and Plan Assessment: Impression: Acute hypoxic respiratory failure, with bilateral pneumonia in the lung bases/atelectasis and the bronchial lavage that was done earlier was positive for MRSA. Acute blood loss anemia secondary to GI blood losses possible abdominal wall bleeding Tracheal stenosis Gram-negative urinary tract infection secondary to Klebsiella Septic shock, resolved patient is off pressors Electrolyte imbalance with hypomagnesium , hypophosphatemia and hypokalemia. Being addressed accordingly Recent history of ventilator dependent respiratory failure, secondary to pneumonia, microbiology from BAL positive for haemophilus influenzae History of DVT, previously on therapeutic dose of Lovenox, which is currently stopped History of Crohn's disease complicated by bowel perforation status post colectomy and diverting ileostomy. 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 Currently receiving TPN for nutritional support. 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 cardiac asystole/arrest in 2021 History of tracheostomy and reversal Recommendation: Continue BiPAP, alternate with nasal cannula Continue chest PT Continue incentive spirometry Continue antibiotics including Unasyn and vancomycin Continue nutritional support/TPN Continue DVT prophylaxis/Lovenox Continue GI prophylaxis/Protonix Intermittent trials of BiPAP Continue close monitoring of the blood pressure off pressors for now however go back to pressors if necessary Continue to monitor electrolytes daily Continue to monitor daily x-rays of the chest Continue to monitor in ICU Critical care time is over 30 minutes Will continue to follow Time with Patient: Greater than 30
[2024-01-06 11:45] LABS: Glucose,Whole Blood 109 mg/dL (70-110)
[2024-01-06] MEDS: 1: MVI, ADULT NO.4 WITH VIT K 10 ML, TRACE (CONC-1ML/DOSE) 1 ML, SODIUM CHLORIDE 4MEQ/ML IV SCH (13:37)
[2024-01-06 17:59] LABS: Glucose,Whole Blood 114 mg/dL (70-110)
--- NOTE | 2024-01-06 19:53 | P.PN ---
Subjective Progress Note Date: 01/06/24 Patient seen and examined at bedside. No acute events. No further bleeding from ileostomy site. Objective - Vital Signs Vital signs: Vital Signs Temp 98.2 F 01/06/24 16:00 Pulse 85 01/06/24 19:00 Resp 21 01/06/24 19:00 BP 137/73 01/06/24 11:00 Pulse Ox 96 01/06/24 19:00 FiO2 50 01/06/24 08:03 Intake & Output 01/06/24 01/06/24 01/07/24 06:59 18:59 06:59 Intake Total 3093.5 2189 Output Total 3675 4325 Balance -581.5 -2136 Weight 101.6 kg 101.6 kg Intake: IV 1596 289 0.9% KVO 120 130 0.9% NS Pressure Bag 36 39 Mvi, Adult No.4 with Vit 1440 120 K 10 ml Trace (Conc-1Ml/ Dose) 1 ml Sodium Chloride 4Meq/ml Vial 50 meq Sodium Acetate 50 meq Calcium Gluconate 1 gm Magnesium Sulfate gm 1 gm Potassium Phosphate 15 mmol In Amino Acid 5%- D15w 1,000 ml @ 120 mls/ hr IV .BY DURATION [facility] Rx #:[id number] Intake, IV Titration 1047.5 1900 Amount Fat Emulsion 20% 250 ml @ 200 20.833 mls/hr IV [facility] Rx#:[id number] Mvi, Adult No.4 with Vit 1200 K 10 ml Trace (Conc-1Ml/ Dose) 1 ml Sodium Chloride 4Meq/ml Vial 50 meq Sodium Acetate 36 meq Calcium Gluconate 1 gm Magnesium Sulfate gm 1 gm Potassium Phosphate 15 mmol In Amino Acid 5%- D15w 1,000 ml @ 120 mls/ hr IV .BY DURATION [facility] Rx #:[id number] Sodium Chloride 4Meq/ml 1047.5 Vial 50 meq Sodium Acetate 36 meq Calcium Gluconate 1 gm Magnesium Sulfate gm 1 gm Potassium Phosphate 15 mmol In Amino Acid 5%-D15w 1,000 ml @ 120 mls/hr IV .BY DURATION [facility] Rx#: [id number] Vancomycin 1,500 mg In 500 Sodium Chloride 0.9% 500 ml 500 ml @ 167 mls/hr IVPB Q16H [facility] Rx#: [id number] Oral 450 Output: Gastric Drainage 1600 Urine 2475 1725 Stool 1200 Oral Regurgitation 1000 Other: Voiding Method Indwelling Catheter Indwelling Catheter ABP, PAP, CO, CI - Last Documented Arterial Blood Pressure 116/50 - Constitutional General appearance: Present: no acute distress - Genitourinary Genitourinary Comment(s): Soft, nontender, nondistended, ileostomy functioning, no evidence of bleeding - Labs CBC & Chem 7: 01/06/24 05:00 01/06/24 05:00 Labs: Abnormal Lab Results - Last 24 Hours (Table) 01/06/24 01/06/24 01/06/24 Range/Units 05:00 05:00 05:00 RBC 2.90 L (4.30-5.90) m/uL Hgb 7.9 L (13.0-17.5) gm/dL Hct 27.1 L (39.0-53.0) % MCHC 29.1 L (31.0-37.0) g/dL RDW 15.8 H (11.5-15.5) % Chloride 111 H (98-107) mmol/L Carbon Dioxide 35 H (22-30) mmol/L Creatinine 0.51 L (0.66-1.25) mg/dL Glucose 106 H (74-99) mg/dL POC Glucose (mg/dL) (70-110) mg/dL Calcium 8.1 L (8.4-10.2) mg/dL Triglycerides 175.00 H (0.00-149.00) mg/dL 01/06/24 Range/Units 17:58 RBC (4.30-5.90) m/uL Hgb (13.0-17.5) gm/dL Hct (39.0-53.0) % MCHC (31.0-37.0) g/dL RDW (11.5-15.5) % Chloride (98-107) mmol/L Carbon Dioxide (22-30) mmol/L Creatinine (0.66-1.25) mg/dL Glucose (74-99) mg/dL POC Glucose (mg/dL) 114 H (70-110) mg/dL Calcium (8.4-10.2) mg/dL Triglycerides (0.00-149.00) mg/dL Microbiology - Last 24 Hours (Table) 01/01/24 02:01 Blood Culture - Final Blood 01/03/24 12:00 Gram Stain - Final Lung Aspirate - Left Bronchial Washings Culture - Final Klebsiella pneumoniae Bella glabrata Assessment and Plan Plan: 48-year-old male status post bleeding from ileostomy site. No evidence of bleeding. Hemoglobin appears stable. Continue current ICU management. No plan for surgical intervention at this time.
[2024-01-06 21:00] LABS: Glucose,Whole Blood 115 mg/dL (70-110)
[2024-01-06 23:07] LABS: Glucose,Whole Blood 110 mg/dL (70-110)
[2024-01-07] MEDS: NOREPINEPHRINE 4 MG in SODIUM CHLORIDE 0.9% 250 ML IV SCH (02:51)
[2024-01-07 05:17] LABS: Glucose,Whole Blood 123 mg/dL (70-110)
[2024-01-07 05:33] LABS: Anisocytosis Slight; Basophils % (A) 0 %; Eosinophils # (A) 0.5 k/uL (0-0.7); Eosinophils % (A) 6 %; HCT 29.3 % (39.0-53.0); HGB 8.9 gm/dL (13.0-17.5); Hypochromasia Marked; Lymphocytes # (A) 2.1 k/uL (1.0-4.8); Lymphocytes % (A) 30 %; MCH 27.9 pg (25.0-35.0); MCHC 30.3 g/dL (31.0-37.0); MCV 92.4 fL (80.0-100.0); Mean Platelet Volume 8.7; Monocytes # (A) 0.3 k/uL (0-1.0); Monocytes % (A) 5 %; Neutrophils # (A) 3.9 k/uL (1.3-7.7); Neutrophils % (A) 56 %; Platelet Count 315 k/uL (150-450); Poikilocytosis Slight; RBC 3.17 m/uL (4.30-5.90)
[2024-01-07 05:41] LABS: African American GFR (CKD) >90 (>60 ml/min/1.73 sqM); Anion Gap 0 mmol/L; Blood Urea Nitrogen 19 mg/dL (9-20); Calcium 8.4 mg/dL (8.4-10.2); Carbon Dioxide 30 mmol/L (22-30); Chloride 108 mmol/L (98-107); Glucose 114 mg/dL (74-99); Magnesium 2.1 mg/dL (1.6-2.3); Non-African American GFR(CKD) >90 (>60 ml/min/1.73 sqM); Phosphorus 3.7 mg/dL (2.5-4.5); Potassium 4.7 mmol/L (3.5-5.1); Sodium 138 mmol/L (137-145)
--- NOTE | 2024-01-07 07:53 | XR ---
EXAMINATION TYPE: XR chest 1V portable DATE OF EXAM: 01/07/2024 COMPARISON: 01/06/2024 HISTORY: Chest pain TECHNIQUE: Single frontal view of the chest is obtained. FINDINGS: Stable perihilar and basilar infiltrates. Small effusions persist. The cardiac silhouette size is within normal limits. The osseous structures are intact. IMPRESSION: 1. Stable chest. [facility], , 01/07/2024 7:50 AM
[2024-01-07] MEDS: VANCOMYCIN 1,750 MG in SODIUM CHLORIDE 0.9% 500 ML 500 ML IVPB SCH (09:38)
--- NOTE | 2024-01-07 09:59 | P.PN ---
Subjective Progress Note Date: 01/06/24 This is a pleasant 48 years old male with past medical history of Crohn disease complicated with bowel perforation requiring ileostomy, also has 2 fistula in his anterior abdominal Wall, patient also has left upper chest portal to receive TPN who was only discharged yesterday after being admitted to the hospital for pneumonia and respiratory failure was discharged yesterday in stable condition. Patient came back to the ER today because of debility and having issues with his TPN supplies. There has been some issues with primary care appointments and orders with TPN requiring signature from his PCP. At this time patient denies any chest pain or shortness of breath. There was no complaint of fever or chills. Denies any nausea, vomiting, abdominal pain. Denies any lightheaded dizziness. Initial lab work done in the ER showed W6.3, hemoglobin 20.7, platelet count 264, sodium 130, potassium 4.9, BUN 20, creatinine 0.41, phosphorus 2.4, alk phos 133, total protein 9 Patient admitted to internal medicine service 12/26. Patient seen and examined. Complaining of pain in his right hand. D enies any shortness of breath /12. Patient seen and examined. Potassium level this morning was 5.5, patient was getting potassium supplementation, will DC it for now. 12/28. Patient seen and examined. Patient had a rapid response called overnight for low blood pressure, patient was given 2-1/2 L of fluid. Labs on this morning showed WBC 10.4, hemoglobin 14.4, platelet count 420, sodium 124, p otassium 5.5, BUN 104, creatinine 1.59. Ostomy output is blood-tinged. 12/30/2023 Patient continues in the ICU requiring low-dose pressor support and currently being weaned. Multiple consultations following including general surgery and did a washout of the abdomen early this morning along with cauterizing and placing sutures to an area near the ostomy that had been bleeding. Hemoglobin is stable and is being closely monitored with hemoglobins every 6 hours. Transfuse if 7 or less. Patient to continue with strict n.p.o. and is maintained on TPN. Blood sugars have been more elevated and will add long- acting and adjust insulins accordingly 12/31/2023 Patient continues in the ICU with multiple consultations following. Patient requiring increased oxygen demands currently on 6 L and transition to Airvo and pulmonary fender finisher following planning on bronchoscopy today. Patient is a febrile although continues with an elevated white count and hemoglobin is stable above 8 with no active bleeding noted. Patient is n.p.o. maintained on TPN at this time. Blood sugars continue to be in the 200s consistently and will adjust long-acting and continue sliding scale. 01/01/2024 patient is seen in follow up today and experienced increasing respiratory demands and became more obtunded and unresponsive requiring mechanical ventilation. Patient FiO2 is 50% with a PEEP of 8 and is status post bronchoscopy yesterday. Patient maintained on Levophed and vasopressin along with propofol. White count is elevated and patient is continued on IV antibiotics in the form of vancomycin and Zosyn. Cultures have been sent and pending at this time. Will consult infectious disease and appreciate input and recommendations. Hemoglobin is stable at 7.8 with no active bleeding noted. Potassium 2.7 and magnesium 1.5 along with phosphorus 0.9 and being replaced per protocol. Kidney functions remained stable at this time other than a chloride of 115 and sodium is 142. Patient is also being started on Eraxis. Recommend adjusting TPN per dietary and pharmacy. Overall prognosis remains extremely guarded at this time. 01/02/2024 Patient is evaluated in the intensive care unit he is currently intubated however he is awake alert oriented with eye moving and able to respond with nods to simple questions. Pressor support in the process of being weaned her blood pressure 144/65. Mechanical ventilator with an FiO2 of 50% and a PEEP of . Continues on TPN. Rectal tube in place continues with loose stools. C.Dif was negative. Cultures currently pending. Remains on Antibiotics with IV Zosyn, IV vancomycin as well as IV anidulafungin. Procalcitonin level was mildly elevated at 1.38. X-ray this morning reveals basilar atelectasis on the left as well as right midlung. Has white blood cell count is down to 10.7 today hemoglobin of 8.1. Sodium level is 142, potassium 2.6, BUN of 43 creatinine of 0.68. Magnesium 1.7. Blood glucose in the 150s continues on Levemir twice a day for this. 01/03/2024 Patient is seen in follow-up today remains intubated and discussing possible e xtubation today with pulmonary following scheduled to undergo bronchoscopy as well. Patient is maintained on antibiotics with infectious disease following while awaiting urine cultures as well as sputum culture showing MRSA. Preliminary urine is gram-negative and will continue current antibiotic regimen. Patient remains on low-dose pressor support and attempting to wean. TPN continues and tolerating. Continue to monitor Accu-Cheks and continue current regimen although blood sugars have been a little lower today. Recommend Accu- Cheks before meals and at bedtime and 2 AM. Patient is alert and responding on exam as propofol is off. Patient extremely weak and lethargic and falls asleep during conversation. Patient also appears frustrated as he is unable to communicate due to intubation 01/03. Patient seen and examined. 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 Patient received IV Lasix this morning. No bleeding around the ileostomy site. 01/04. Patient examined. Potassium placement ordered. States he feels better compared to yesterday. Denies any chest pain 01/06/2024 Patient is seen in follow-up continues in the ICU and is currently maintained on nasal cannula and tolerating thus far. Patient continues on TPN with multiple consultations following. Awaiting finalized cultures on repeat sputum culture from most recent bronchoscopy. Patient is afebrile and white count remains normal. Patient is continued on IV antibiotics in the form of Unasyn as well as vancomycin. Patient also continues on low-dose norepinephrine and is being weaned. REVIEW OF SYSTEMS: CONSTITUTIONAL: No fever, no malaise,. Complaining of lethargy although reports to feeling a little improved today. CARDIOVASCULAR: No chest pain, no palpitations, no syncope. PULMONARY: No shortness of breath, no cough, GASTROINTESTINAL: No diarrhea, no nausea, no vomiting, no abdominal pain. NEUROLOGICAL: No headaches, no weakness, PHYSICAL EXAMINATION: GENERAL: The patient is alert and oriented x3, ill looking, elderly appearing, obese HEENT: Pupils are round and equally reacting to light. EOMI. No scleral icterus. No conjunctival pallor. Normocephalic, atraumatic. No pharyngeal erythema. No thyromegaly. CARDIOVASCULAR: S1 and S2 present. No murmurs, rubs, or gallops. PULMONARY: Diminished breath sound the bases bilaterally ABDOMEN: Soft, nontender, nondistended,. Ostomy seen MUSCULOSKELETAL: No joint swelling or deformity. Right BKA EXTREMITIES: No cyanosis, clubbing, or pedal edema. NEUROLOGICAL: Gross neurological examination did not reveal any focal deficits. Diffusely weak SKIN: No rashes. Pale Assessment: Hypotension with hypotensive shock requiring pressor support likely secondary to acute GI bleed and hypovolemia Acute GI bleed from the ostomy secondary to an abdominal wall extravasation near the ostomy requiring sutures and cauterization 12/30/2023, resolved Acute blood loss anemia secondary to above acute kidney injury secondary to hypotension Possible acute urinary tract infection, secondary to indwelling Medina catheter, cultures showing Klebsiella pneumonia History of DVT Acute on chronic hypoxic respiratory failure requiring Airvo, status post bronchoscopy today 12/31/2023, with worsening respiratory distress requiring mechanical ventilation overnight 01/01/2024, status post extubation on 01/03/2024 Leukocytosis, improved Moderate protein calorie malnutrition maintained on TPN Hyperkalemia, improved status post Lokelma Hyponatremia history of Crohn disease complicated with bowel perforation requiring ileostomy, also has 2 fistula in his anterior abdominal Wall, patient also has left upper chest portal to receive right lower extremity arterial clot and gangrene status post 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 Continue IV Unasyn and vancomycin and cultures finalized showing Klebsiella pneumonia along with Bella glabrata Monitor blood sugar levels, continue current insulin regimen and will adjust accordingly Critical care following Surgery following ID following The impression and plan of care has been dictated by Alyssa Hernandez, Nurse Practitioner as directed. Dr. Vicente MD I have performed a history and examination and MDM of this patient, discussed the same with the dictator, and agree with the dictator's assessment and plan as written ,documented as a scribe. Based on total visit time, I have performed more than 50% of the visit. Objective - Vital Signs Vital signs: Vital Signs Temp 98.3 F 01/06/24 04:00 Pulse 76 01/06/24 08:25 Resp 16 01/06/24 07:00 BP 102/55 01/06/24 07:00 Pulse Ox 97 10/21/24 07:00 FiO2 50 01/06/24 08:03 Intake & Output 01/05/24 01/06/24 01/06/24 18:59 06:59 18:59 Intake Total 2414 3093.5 133 Output Total 3575 3675 75 Balance -1161 -581.5 58 Weight 101.6 kg Intake: IV 1696 1596 133 0.9% KVO 120 120 10 0.9% NS Pressure Bag 36 36 3 Ampicillin-Sulbactam 3 gm 100 In Sodium Chloride 0.9% 100 ml @ 200 mls/hr IVPB Q6HR [facility] Rx#:[id number] Mvi, Adult No.4 with Vit 1440 1440 120 K 10 ml Trace (Conc-1Ml/ Dose) 1 ml Sodium Chloride 4Meq/ml Vial 50 meq Sodium Acetate 50 meq Calcium Gluconate 1 gm Magnesium Sulfate gm 1 gm Potassium Phosphate 15 mmol In Amino Acid 5%- D15w 1,000 ml @ 120 mls/ hr IV .BY DURATION [facility] Rx #:[id number] Intake, IV Titration 1047.5 Amount Sodium Chloride 4Meq/ml 1047.5 Vial 50 meq Sodium Acetate 36 meq Calcium Gluconate 1 gm Magnesium Sulfate gm 1 gm Potassium Phosphate 15 mmol In Amino Acid 5%-D15w 1,000 ml @ 120 mls/hr IV .BY DURATION [facility] Rx#: [id number] Oral 718 450 Output: Urine 1625 2475 75 Stool 1950 1200 Other: Voiding Method Indwelling Catheter Indwelling Catheter ABP, PAP, CO, CI - Last Documented Arterial Blood Pressure 108/51 - Labs CBC & Chem 7: 01/07/24 05:23 01/07/24 05:23 Labs: Abnormal Lab Results - Last 24 Hours (Table) 01/05/24 01/05/24 01/06/24 Range/Units 05:00 17:39 05:00 RBC (4.30-5.90) m/uL Hgb (13.0-17.5) gm/dL Hct (39.0-53.0) % MCHC (31.0-37.0) g/dL RDW (11.5-15.5) % Sodium 146 H (137-145) mmol/L Potassium 3.2 L (3.5-5.1) mmol/L Chloride 114 H 111 H (98-107) mmol/L Carbon Dioxide 32 H 35 H (22-30) mmol/L Creatinine 0.54 L 0.51 L (0.66-1.25) mg/dL Glucose 111 H 106 H (74-99) mg/dL POC Glucose (mg/dL) 133 H (70-110) mg/dL Calcium 8.0 L 8.1 L (8.4-10.2) mg/dL Total Protein 5.5 L (6.3-8.2) g/dL Albumin 2.2 L (3.5-5.0) g/dL 01/06/24 Range/Units 05:00 RBC 2.90 L (4.30-5.90) m/uL Hgb 7.9 L (13.0-17.5) gm/dL Hct 27.1 L (39.0-53.0) % MCHC 29.1 L (31.0-37.0) g/dL RDW 15.8 H (11.5-15.5) % Sodium (137-145) mmol/L Potassium (3.5-5.1) mmol/L Chloride (98-107) mmol/L Carbon Dioxide (22-30) mmol/L Creatinine (0.66-1.25) mg/dL Glucose (74-99) mg/dL POC Glucose (mg/dL) (70-110) mg/dL Calcium (8.4-10.2) mg/dL Total Protein (6.3-8.2) g/dL Albumin (3.5-5.0) g/dL Microbiology - Last 24 Hours (Table) 01/03/24 12:00 Gram Stain - Preliminary Lung Aspirate - Left Bronchial Washings Culture - Preliminary Klebsiella pneumoniae Bella glabrata
[2024-01-07 11:38] LABS: Glucose,Whole Blood 109 mg/dL (70-110)
--- NOTE | 2024-01-07 12:59 | P.PN ---
Subjective Progress Note Date: 01/07/24 Principal diagnosis: Acute hypoxic respiratory failure with bilateral pneumonia secondary to MRSA On 01/04/2024, the patient is being seen for a follow-up. The patient was weane d off the mechanical ventilator and the patient was extubated to BiPAP and this morning the patient is on 6 L of O2 nasal cannula. Cough remains weak and the patient is unable to bring up much sputum. His early sputum analysis was positive for MRSA. Chest x-ray from today shows a right-sided pleural effusion and atelectatic changes lung base bilaterally. The patient seems to be calm and comfortable and awake and communicating. He is profoundly weak. He remains on norepinephrine which is running at 0.05 mcg/kg/min. Vasopressin was discontinued. IV fluids are currently at KVO. Remains on TPN for nutritional support. Sodium is at 142, potassium 3.6 BUN is 17 with a creatinine of 0.5. CBC still pending for now. The patient remains on Unasyn and vancomycin. Remains on TPN for nutritional support. He is currently off propofol. Ileostomy is functional and there is no evidence of any bleeding from the ileostomy or the enterocutaneous fistulas. On 01/05/2024, the patient is awake and alert and the patient is currently on a BiPAP is alternating between BiPAP pressures of 12/5 with an FiO2 40% and 40 disimpaction by nasal cannula. Chest x-ray showing atelectasis and possibly development of right-sided pleural effusion. The patient was given diuretics yesterday and the patient has diuresed adequately and he has developed hypokalemia. Fluid balance is -2.5 L over the past 24 hours. Urine output is more than 100 cc an hour. Ileostomy output is normal drop 3.7 L over the past 24 hours. Remains on TPN for nutritional support at a rate of 120 cc an hour. The white cell count of 4.3 with a hemoglobin of 8. Sodium is at 146, BUN 16 with a creatinine of 0.5. Potassium level is at 3.2. Serum bicarb is at 32. Awake and alert. Profoundly weak. Communicating. The patient remains on Unasyn and vancomycin. He is currently off pressors. Patient was seen today on 01/06/2024, remains in the ICU, on BiPAP 12/5/40% remains on antibiotics in the form of Unasyn and vancomycin remains on TPN at 120 cc/h. Chest x-ray continues to show atelectasis and small right-sided pleural effusion patient remains on diuretics, and he diuresed adequately. Continues to diurese, and continues to have good urine output. Continues to have significant ileostomy output. Patient remains on TPN for nutritional support. Labs showed WBC count 4.5 hemoglobin 7.9 basic metabolic profile is normal bicarb is 35 renal profile is normal Patient was evaluated on 01/07/2024, remains in the ICU, developed hypotension last night required going back on norepinephrine at 0.05 mcg/kg/min. Today the patient is doing well, his mean arterial pressure is in the 80s, hence I recommended tapering and possibly discontinuation of norepinephrine. Patient was on pressure support 02/19/50%, today he is on nasal cannula, does not seem to be in distress. He feels fine. His left groin arterial line has been removed. Continues to have significant drainage from his ostomy and fistula in the abdomen, and this is connected to a drainage tube. Patient remains on TPN at 1 of 25 cc/h. Chest x-ray continues to show some limited airspace disease in the right lower lobe, patient tells me today that he feels better than he felt yesterday in spite of requiring norepinephrine and I plan to discontinue WBC count is 7.0 hemoglobin is 8.9. Basic metabolic profile is normal renal profile is normal Objective - Vital Signs Vital signs: Vital Signs Temp 98.0 F 01/07/24 04:00 Pulse 85 01/07/24 11:01 Resp 15 01/07/24 11:00 BP 102/44 01/07/24 11:00 Pulse Ox 100 01/07/24 11:00 FiO2 50 01/07/24 04:07 Intake & Output 01/06/24 01/07/24 01/07/24 18:59 06:59 18:59 Intake Total 2189 2704.791 756.871 Output Total 4325 2145 1135 Balance -2136 559.791 -378.129 Weight 101.6 kg 101.2 kg Intake: IV 289 1563 753 0.9% KVO 130 110 50 0.9% NS Pressure Bag 39 33 3 Ampicillin-Sulbactam 3 gm 100 100 In Sodium Chloride 0.9% 100 ml @ 200 mls/hr IVPB Q6HR [facility] Rx#:[id number] Mvi, Adult No.4 with Vit 720 600 K 10 ml Trace (Conc-1Ml/ Dose) 1 ml Sodium Chloride 4Meq/ml Vial 50 meq Potassium Acetate 10 meq Calcium Gluconate 1 gm Magnesium Sulfate gm 1 gm Potassium Phosphate 15 mmol In Amino Acid 5%- D15w 1,000 ml @ 120 mls/ hr IV .BY DURATION [facility] Rx #:[id number] Mvi, Adult No.4 with Vit 120 600 K 10 ml Trace (Conc-1Ml/ Dose) 1 ml Sodium Chloride 4Meq/ml Vial 50 meq Sodium Acetate 50 meq Calcium Gluconate 1 gm Magnesium Sulfate gm 1 gm Potassium Phosphate 15 mmol In Amino Acid 5%- D15w 1,000 ml @ 120 mls/ hr IV .[facility] Rx #:[id number] Intake, IV Titration 1900 1091.791 3.871 Amount Fat Emulsion 20% 250 ml @ 200 20.833 mls/hr IV MoWeFr [facility] Rx#:[id number] Mvi, Adult No.4 with Vit 1200 K 10 ml Trace (Conc-1Ml/ Dose) 1 ml Sodium Chloride 4Meq/ml Vial 50 meq Sodium Acetate 36 meq Calcium Gluconate 1 gm Magnesium Sulfate gm 1 gm Potassium Phosphate 15 mmol In Amino Acid 5%- D15w 1,000 ml @ 120 mls/ hr IV .[facility] Rx #:[id number] Norepinephrine 4 mg In 57.291 3.871 Sodium Chloride 0.9% 250 ml @ 0.03 MCG/KG/MIN 11. 613 mls/hr IV .[id number] [facility] Rx#:[id number] Sodium Chloride 4Meq/ml 1034.5 Vial 50 meq Potassium Acetate 10 meq Calcium Gluconate 1 gm Magnesium Sulfate gm 1 gm Potassium Phosphate 15 mmol In Amino Acid 5%-D15w 1,000 ml @ 120 mls/hr IV .[facility] Rx#: [id number] Vancomycin 1,500 mg In 500 Sodium Chloride 0.9% 500 ml 500 ml @ 167 mls/hr IVPB Q16H [facility] Rx#: [id number] Oral 50 Output: Gastric Drainage 1600 Urine 1725 1445 485 Stool 700 650 Oral Regurgitation 1000 Other: Voiding Method Indwelling Catheter Indwelling Catheter Indwelling Catheter ABP, PAP, CO, CI - Last Documented Arterial Blood Pressure 108/54 - Exam GENERAL EXAM: 48-year-old male, on BiPAP, not in distress. On 4 L nasal cannula HEAD: Normocephalic and atraumatic EYES: Normal reaction of pupils, equal size. NOSE: Clear with pink turbinates. THROAT: No erythema or exudates. NECK: No masses, no JVD. CHEST: No chest wall deformity. Left subclavian double-lumen central line LUNGS: Equal air entry with no crackles, wheeze, rhonchi or dullness. On room air. No conversational dyspnea or accessory muscle use.. The patient has diminished breath sounds in very weak cough. No stridor. CVS: S1 and S2 normal with no audible murmur, regular rhythm. No extra heart sounds ABDOMEN: Ileostomy with brown stool, enterocutaneous fistula noted with stool no evidence of any bleeding.. Bowel sounds present. Abdomen is soft and nontender. No organomegaly. Multiple surgical scars noted throughout the whole abdomen. SKIN: No rashes CENTRAL NERVOUS SYSTEM: Arousable, follows simple instructions, no gross focal neurologic deficit. EXTREMITIES: Right BKA, left leg weakness and left foot drop, remaining distal pulses are weak and only found with Doppler. Extremities are showing diminished pulses bilaterally otherwise no significant cyanosis. - Labs CBC & Chem 7: 01/07/24 05:23 01/07/24 05:23 Labs: Abnormal Lab Results - Last 24 Hours (Table) 01/06/24 01/06/24 01/07/24 Range/Units 17:58 20:58 05:14 RBC (4.30-5.90) m/uL Hgb (13.0-17.5) gm/dL Hct (39.0-53.0) % MCHC (31.0-37.0) g/dL RDW (11.5-15.5) % Chloride (98-107) mmol/L Creatinine (0.66-1.25) mg/dL Glucose (74-99) mg/dL POC Glucose (mg/dL) 114 H 115 H 123 H (70-110) mg/dL 01/07/24 01/07/24 Range/Units 05:23 05:23 RBC 3.17 L (4.30-5.90) m/uL Hgb 8.9 L (13.0-17.5) gm/dL Hct 29.3 L (39.0-53.0) % MCHC 30.3 L (31.0-37.0) g/dL RDW 16.0 H (11.5-15.5) % Chloride 108 H (98-107) mmol/L Creatinine 0.48 L (0.66-1.25) mg/dL Glucose 114 H (74-99) mg/dL POC Glucose (mg/dL) (70-110) mg/dL Microbiology - Last 24 Hours (Table) 01/01/24 02:01 Blood Culture - Final Blood 01/03/24 12:00 Gram Stain - Final Lung Aspirate - Left Bronchial Washings Culture - Final Klebsiella pneumoniae Bella glabrata Assessment and Plan Assessment: Impression: Acute hypoxic respiratory failure, with bilateral pneumonia in the lung bases/atelectasis and the bronchial lavage that was done earlier was positive for MRSA. 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 Addressed accordingly Recent history of ventilator dependent respiratory failure, secondary to pneumonia, microbiology from BAL positive for haemophilus influenzae History of DVT, previously on therapeutic dose of Lovenox, which is currently stopped History of Crohn's disease complicated by bowel perforation status post colectomy and diverting ileostomy. 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 Currently receiving TPN for nutritional support. 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 cardiac asystole/arrest in 2021 History of tracheostomy and reversal Recommendation: Taper and possibly discontinue her epinephrine today. Continue BiPAP, alternate with nasal cannula Continue chest PT Continue incentive spirometry Continue antibiotics including Unasyn and vancomycin Continue nutritional support/TPN Continue DVT prophylaxis/Lovenox Continue GI prophylaxis/Protonix Continue close monitoring of the blood pressure Continue to monitor electrolytes daily Continue to monitor daily x-rays of the chest Once the patient is off norepinephrine will likely transfer to monitored bed on 3 S. Will continue to follow Time with Patient: Less than 30
--- NOTE | 2024-01-07 13:23 | P.PN ---
Subjective Progress Note Date: 01/06/24 Principal diagnosis: Reason for follow-up is sepsis UTI/pneumonia Patient is a 48-year-old male with a past medical history difficult for CVA TIA DVT did have a history of Crohn's disease with bowel perforation requiring ileostomy and also have a enterocutaneous fistula patient initially presentation to the hospital was weakness not feeling well subsequent did have w orsening of the respiratory status requiring intubation did have a fever concerning for possible pneumonia. On today's evaluation that is 01/06/2024, Patient is afebrile patient is currently on 4 L nasal oxygen and denies having any shortness of breath, the patient denies any chest pain or any worsening cough, the patient denies any nausea vomiting did not have any abdominal pain did have significant output through his ileostomy and fistula which is connected to a bag. Patient white count is 4.5 creatinine 0.51 Objective - Vital Signs Vital signs: Vital Signs Temp 97.8 F 01/06/24 08:00 Pulse 84 01/06/24 12:16 Resp 17 01/06/24 10:00 BP 112/62 01/06/24 10:00 Pulse Ox 92 L 01/06/24 10:00 FiO2 50 01/06/24 08:03 Intake & Output 01/05/24 01/06/24 01/06/24 18:59 06:59 18:59 Intake Total 2414 3093.5 812 Output Total 3575 3675 500 Balance -1161 -581.5 312 Weight 101.6 kg Intake: IV 1696 1596 172 0.9% KVO 120 120 40 0.9% NS Pressure Bag 36 36 12 Ampicillin-Sulbactam 3 gm 100 In Sodium Chloride 0.9% 100 ml @ 200 mls/hr IVPB Q6HR [facility] Rx#:[id number] Mvi, Adult No.4 with Vit 1440 1440 120 K 10 ml Trace (Conc-1Ml/ Dose) 1 ml Sodium Chloride 4Meq/ml Vial 50 meq Sodium Acetate 50 meq Calcium Gluconate 1 gm Magnesium Sulfate gm 1 gm Potassium Phosphate 15 mmol In Amino Acid 5%- D15w 1,000 ml @ 120 mls/ hr IV .BY DURATION [facility] Rx #:[id number] Intake, IV Titration 1047.5 640 Amount Fat Emulsion 20% 250 ml @ 20 20.833 mls/hr IV MoWeFr [facility] Rx#:[id number] Mvi, Adult No.4 with Vit 120 K 10 ml Trace (Conc-1Ml/ Dose) 1 ml Sodium Chloride 4Meq/ml Vial 50 meq Sodium Acetate 36 meq Calcium Gluconate 1 gm Magnesium Sulfate gm 1 gm Potassium Phosphate 15 mmol In Amino Acid 5%- D15w 1,000 ml @ 120 mls/ hr IV .BY DURATION [facility] Rx #:[id number] Sodium Chloride 4Meq/ml 1047.5 Vial 50 meq Sodium Acetate 36 meq Calcium Gluconate 1 gm Magnesium Sulfate gm 1 gm Potassium Phosphate 15 mmol In Amino Acid 5%-D15w 1,000 ml @ 120 mls/hr IV .BY DURATION [facility] Rx#: [id number] Vancomycin 1,500 mg In 500 Sodium Chloride 0.9% 500 ml 500 ml @ 167 mls/hr IVPB Q16H [facility] Rx#: [id number] Oral 718 450 Output: Urine 1625 2475 500 Stool 1950 1200 Other: Voiding Method Indwelling Catheter Indwelling Catheter Indwelling Catheter ABP, PAP, CO, CI - Last Documented Arterial Blood Pressure 144/67 - Exam GENERAL DESCRIPTION: Middle-age male intubated on the vent RESPIRATORY SYSTEM: Unlabored breathing , decreased breath sounds at bases HEART: S1 S2 regular rate and rhythm , ABDOMEN: Soft , no tenderness EXTREMITIES: Diffuse swelling to the leg no redness, 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 - Labs CBC & Chem 7: 01/07/24 05:23 01/07/24 05:23 Labs: Abnormal Lab Results - Last 24 Hours (Table) 01/05/24 01/06/24 01/06/24 Range/Units 17:39 05:00 05:00 RBC (4.30-5.90) m/uL Hgb (13.0-17.5) gm/dL Hct (39.0-53.0) % MCHC (31.0-37.0) g/dL RDW (11.5-15.5) % Chloride 111 H (98-107) mmol/L Carbon Dioxide 35 H (22-30) mmol/L Creatinine 0.51 L (0.66-1.25) mg/dL Glucose 106 H (74-99) mg/dL POC Glucose (mg/dL) 133 H (70-110) mg/dL Calcium 8.1 L (8.4-10.2) mg/dL Triglycerides 175.00 H (0.00-149.00) mg/dL 01/06/24 Range/Units 05:00 RBC 2.90 L (4.30-5.90) m/uL Hgb 7.9 L (13.0-17.5) gm/dL Hct 27.1 L (39.0-53.0) % MCHC 29.1 L (31.0-37.0) g/dL RDW 15.8 H (11.5-15.5) % Chloride (98-107) mmol/L Carbon Dioxide (22-30) mmol/L Creatinine (0.66-1.25) mg/dL Glucose (74-99) mg/dL POC Glucose (mg/dL) (70-110) mg/dL Calcium (8.4-10.2) mg/dL Triglycerides (0.00-149.00) mg/dL Microbiology - Last 24 Hours (Table) 01/03/24 12:00 Gram Stain - Final Lung Aspirate - Left Bronchial Washings Culture - Final Klebsiella pneumoniae Bella glabrata Assessment and Plan (1) Pneumonia Current Visit: Yes Status: Acute Code(s): J18.9 - PNEUMONIA, UNSPECIFIED ORGANISM SNOMED Code(s): 793576443 (2) Sepsis Current Visit: No Status: Acute Code(s): A41.9 - SEPSIS, UNSPECIFIED ORGANISM SNOMED Code(s): 76091353 Plan: 1patient with sepsis/septic shock in this patient who did have a fever elevated white count high clinical suspicion of possible left lower lobe pneumonia in this patient who did have multiple comorbidities and complicated intra-abdominal history with history of bowel perforation and did have ileostomy and enterocutaneous fistula keeping in mind the patient has been in and out of the hospital we will need to cover for the resistant gram-positive as well as gram- negative pathogen 2-patient bronchial culture grew MRSA urine is growing Klebsiella that is sensitive to Unasyn, repeat bronchoscopy cultures are growing Klebsiella and Bella 3patient to continue with the vancomycin and Unasyn, and monitor his clinical course closely Dictation was produced using [employer] dictation software. please excuse any grammatical, word or spelling errors. Time with Patient: Less than 30
--- NOTE | 2024-01-07 13:24 | P.PN ---
Subjective Progress Note Date: 01/07/24 Principal diagnosis: Reason for follow-up is sepsis UTI/pneumonia Patient is a 48-year-old male with a past medical history difficult for CVA TIA DVT did have a history of Crohn's disease with bowel perforation requiring ileostomy and also have a enterocutaneous fistula patient initially presentation to the hospital was weakness not feeling well subsequent did have w orsening of the respiratory status requiring intubation did have a fever concerning for possible pneumonia. On today's evaluation that is01/07/2024, patient has been afebrile, patient is breathing comfortably and is currently on 5 L nasal oxygen, patient denies having any worsening cough no chest pain, patient denies nausea vomiting and no abdominal pain, did have significant output through his ileostomy. Patient white count is 7.0, creatinine 0.48 Objective - Vital Signs Vital signs: Vital Signs Temp 98.0 F 01/07/24 04:00 Pulse 85 01/07/24 11:01 Resp 15 01/07/24 11:00 BP 102/44 01/07/24 11:00 Pulse Ox 100 01/07/24 11:00 FiO2 50 01/07/24 04:07 Intake & Output 01/06/24 01/07/24 01/07/24 18:59 06:59 18:59 Intake Total 2189 2704.791 756.871 Output Total 4325 2145 1135 Balance -2136 559.791 -378.129 Weight 101.6 kg 101.2 kg Intake: IV 289 1563 753 0.9% KVO 130 110 50 0.9% NS Pressure Bag 39 33 3 Ampicillin-Sulbactam 3 gm 100 100 In Sodium Chloride 0.9% 100 ml @ 200 mls/hr IVPB Q6HR [facility] Rx#:[id number] Mvi, Adult No.4 with Vit 720 600 K 10 ml Trace (Conc-1Ml/ Dose) 1 ml Sodium Chloride 4Meq/ml Vial 50 meq Potassium Acetate 10 meq Calcium Gluconate 1 gm Magnesium Sulfate gm 1 gm Potassium Phosphate 15 mmol In Amino Acid 5%- D15w 1,000 ml @ 120 mls/ hr IV .BY DURATION [facility] Rx #:[id number] Mvi, Adult No.4 with Vit 120 600 K 10 ml Trace (Conc-1Ml/ Dose) 1 ml Sodium Chloride 4Meq/ml Vial 50 meq Sodium Acetate 50 meq Calcium Gluconate 1 gm Magnesium Sulfate gm 1 gm Potassium Phosphate 15 mmol In Amino Acid 5%- D15w 1,000 ml @ 120 mls/ hr IV .BY DURATION [facility] Rx #:[id number] Intake, IV Titration 1900 1091.791 3.871 Amount Fat Emulsion 20% 250 ml @ 200 20.833 mls/hr IV MoWeFr [facility] Rx#:[id number] Mvi, Adult No.4 with Vit 1200 K 10 ml Trace (Conc-1Ml/ Dose) 1 ml Sodium Chloride 4Meq/ml Vial 50 meq Sodium Acetate 36 meq Calcium Gluconate 1 gm Magnesium Sulfate gm 1 gm Potassium Phosphate 15 mmol In Amino Acid 5%- D15w 1,000 ml @ 120 mls/ hr IV .BY DURATION [facility] Rx #:[id number] Norepinephrine 4 mg In 57.291 3.871 Sodium Chloride 0.9% 250 ml @ 0.03 MCG/KG/MIN 11. 613 mls/hr IV .[id number] [facility] Rx#:[id number] Sodium Chloride 4Meq/ml 1034.5 Vial 50 meq Potassium Acetate 10 meq Calcium Gluconate 1 gm Magnesium Sulfate gm 1 gm Potassium Phosphate 15 mmol In Amino Acid 5%-D15w 1,000 ml @ 120 mls/hr IV .BY DURATION [facility] Rx#: [id number] Vancomycin 1,500 mg In 500 Sodium Chloride 0.9% 500 ml 500 ml @ 167 mls/hr IVPB Q16H [facility] Rx#: [id number] Oral 50 Output: Gastric Drainage 1600 Urine 1725 1445 485 Stool 700 650 Oral Regurgitation 1000 Other: Voiding Method Indwelling Catheter Indwelling Catheter Indwelling Catheter ABP, PAP, CO, CI - Last Documented Arterial Blood Pressure 108/54 - Exam GENERAL DESCRIPTION: Middle-age male intubated on the vent RESPIRATORY SYSTEM: Unlabored breathing , decreased breath sounds at bases HEART: S1 S2 regular rate and rhythm , ABDOMEN: Soft , no tenderness EXTREMITIES: Diffuse swelling to the leg no redness, 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 - Labs CBC & Chem 7: 01/07/24 05:23 01/07/24 05:23 Labs: Abnormal Lab Results - Last 24 Hours (Table) 01/06/24 01/06/24 01/07/24 Range/Units 17:58 20:58 05:14 RBC (4.30-5.90) m/uL Hgb (13.0-17.5) gm/dL Hct (39.0-53.0) % MCHC (31.0-37.0) g/dL RDW (11.5-15.5) % Chloride (98-107) mmol/L Creatinine (0.66-1.25) mg/dL Glucose (74-99) mg/dL POC Glucose (mg/dL) 114 H 115 H 123 H (70-110) mg/dL 01/07/24 01/07/24 Range/Units 05:23 05:23 RBC 3.17 L (4.30-5.90) m/uL Hgb 8.9 L (13.0-17.5) gm/dL Hct 29.3 L (39.0-53.0) % MCHC 30.3 L (31.0-37.0) g/dL RDW 16.0 H (11.5-15.5) % Chloride 108 H (98-107) mmol/L Creatinine 0.48 L (0.66-1.25) mg/dL Glucose 114 H (74-99) mg/dL POC Glucose (mg/dL) (70-110) mg/dL Microbiology - Last 24 Hours (Table) 01/01/24 02:01 Blood Culture - Final Blood 01/03/24 12:00 Gram Stain - Final Lung Aspirate - Left Bronchial Washings Culture - Final Klebsiella pneumoniae Bella glabrata Assessment and Plan (1) Pneumonia Current Visit: Yes Status: Acute Code(s): J18.9 - PNEUMONIA, UNSPECIFIED ORGANISM SNOMED Code(s): 965299767 (2) Sepsis Current Visit: No Status: Acute Code(s): A41.9 - SEPSIS, UNSPECIFIED ORGANISM SNOMED Code(s): 04925005 Plan: 1patient with sepsis/septic shock in this patient who did have a fever elevated white count high clinical suspicion of possible left lower lobe pneumonia in this patient who did have multiple comorbidities and complicated intra-abdominal history with history of bowel perforation and did have ileostomy and ent erocutaneous fistula keeping in mind the patient has been in and out of the hospital we will need to cover for the resistant gram-positive as well as gram- negative pathogen 2-patient bronchial culture grew MRSA urine is growing Klebsiella that is sensitive to Unasyn, repeat bronchoscopy cultures are growing Klebsiella and Bella 3patient did have resolution of his fever and the patient white count normalized 4to continue with the vancomycin and Unasyn while inpatient, and monitor his clinical course closely Dictation was produced using [employer] dictation software. please excuse any grammatical, word or spelling errors. Time with Patient: Less than 30
--- NOTE | 2024-01-07 15:06 | P.PN ---
Subjective Progress Note Date: 01/07/24 This is a pleasant 48 years old male with past medical history of Crohn disease complicated with bowel perforation requiring ileostomy, also has 2 fistula in his anterior abdominal Wall, patient also has left upper chest portal to receive TPN who was only discharged yesterday after being admitted to the hospital for pneumonia and respiratory failure was discharged yesterday in stable condition. Patient came back to the ER today because of debility and having issues with his TPN supplies. There has been some issues with primary care appointments and orders with TPN requiring signature from his PCP. At this time patient denies any chest pain or shortness of breath. There was no complaint of fever or chills. Denies any nausea, vomiting, abdominal pain. Denies any lightheaded dizziness. Initial lab work done in the ER showed W6.3, hemoglobin 20.7, platelet count 264, sodium 130, potassium 4.9, BUN 20, creatinine 0.41, phosphorus 2.4, alk phos 133, total protein 9 Patient admitted to internal medicine service 12/26. Patient seen and examined. Complaining of pain in his right hand. D enies any shortness of breath /12. Patient seen and examined. Potassium level this morning was 5.5, patient was getting potassium supplementation, will DC it for now. 12/28. Patient seen and examined. Patient had a rapid response called overnight for low blood pressure, patient was given 2-1/2 L of fluid. Labs on this morning showed WBC 10.4, hemoglobin 14.4, platelet count 420, sodium 124, p otassium 5.5, BUN 104, creatinine 1.59. Ostomy output is blood-tinged. 12/30/2023 Patient continues in the ICU requiring low-dose pressor support and currently being weaned. Multiple consultations following including general surgery and did a washout of the abdomen early this morning along with cauterizing and placing sutures to an area near the ostomy that had been bleeding. Hemoglobin is stable and is being closely monitored with hemoglobins every 6 hours. Transfuse if 7 or less. Patient to continue with strict n.p.o. and is maintained on TPN. Blood sugars have been more elevated and will add long- acting and adjust insulins accordingly 12/31/2023 Patient continues in the ICU with multiple consultations following. Patient requiring increased oxygen demands currently on 6 L and transition to Airvo and pulmonary sensor specialist following planning on bronchoscopy today. Patient is a febrile although continues with an elevated white count and hemoglobin is stable above 8 with no active bleeding noted. Patient is n.p.o. maintained on TPN at this time. Blood sugars continue to be in the 200s consistently and will adjust long-acting and continue sliding scale. 01/01/2024 patient is seen in follow up today and experienced increasing respiratory demands and became more obtunded and unresponsive requiring mechanical ventilation. Patient FiO2 is 50% with a PEEP of 8 and is status post bronchoscopy yesterday. Patient maintained on Levophed and vasopressin along with propofol. White count is elevated and patient is continued on IV antibiotics in the form of vancomycin and Zosyn. Cultures have been sent and pending at this time. Will consult infectious disease and appreciate input and recommendations. Hemoglobin is stable at 7.8 with no active bleeding noted. Potassium 2.7 and magnesium 1.5 along with phosphorus 0.9 and being replaced per protocol. Kidney functions remained stable at this time other than a chloride of 115 and sodium is 142. Patient is also being started on Eraxis. Recommend adjusting TPN per dietary and pharmacy. Overall prognosis remains extremely guarded at this time. 01/02/2024 Patient is evaluated in the intensive care unit he is currently intubated however he is awake alert oriented with eye moving and able to respond with nods to simple questions. Pressor support in the process of being weaned her blood pressure 144/65. Mechanical ventilator with an FiO2 of 50% and a PEEP of . Continues on TPN. Rectal tube in place continues with loose stools. C.Dif was negative. Cultures currently pending. Remains on Antibiotics with IV Zosyn, IV vancomycin as well as IV anidulafungin. Procalcitonin level was mildly elevated at 1.38. X-ray this morning reveals basilar atelectasis on the left as well as right midlung. Has white blood cell count is down to 10.7 today hemoglobin of 8.1. Sodium level is 142, potassium 2.6, BUN of 43 creatinine of 0.68. Magnesium 1.7. Blood glucose in the 150s continues on Levemir twice a day for this. 01/03/2024 Patient is seen in follow-up today remains intubated and discussing possible e xtubation today with pulmonary following scheduled to undergo bronchoscopy as well. Patient is maintained on antibiotics with infectious disease following while awaiting urine cultures as well as sputum culture showing MRSA. Preliminary urine is gram-negative and will continue current antibiotic regimen. Patient remains on low-dose pressor support and attempting to wean. TPN continues and tolerating. Continue to monitor Accu-Cheks and continue current regimen although blood sugars have been a little lower today. Recommend Accu- Cheks before meals and at bedtime and 2 AM. Patient is alert and responding on exam as propofol is off. Patient extremely weak and lethargic and falls asleep during conversation. Patient also appears frustrated as he is unable to communicate due to intubation 01/03. Patient seen and examined. 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 Patient received IV Lasix this morning. No bleeding around the ileostomy site. 01/04. Patient examined. Potassium placement ordered. States he feels better compared to yesterday. Denies any chest pain 01/06/2024 Patient is seen in follow-up continues in the ICU and is currently maintained on nasal cannula and tolerating thus far. Patient continues on TPN with multiple consultations following. Awaiting finalized cultures on repeat sputum culture from most recent bronchoscopy. Patient is afebrile and white count remains normal. Patient is continued on IV antibiotics in the form of Unasyn as well as vancomycin. Patient also continues on low-dose norepinephrine and is being weaned. 01/07/2024 Patient is seen in follow-up today and remains in the ICU and currently has been weaned off of Levophed maintaining blood pressures. Planning for transferring out of the ICU if blood pressure remains stable. Patient is afebrile and continued on IV antibiotics and will continue the same with infectious disease following. White count has normalized and patient is afebrile. Patient continues on TPN and will continue at this time. Patient also continues on 2 L via nasal cannula as well as titrating and weaning as tolerated. Patient using BiPAP intermittently as needed as well. Chest x-ray today showed a stable chest. REVIEW OF SYSTEMS: CONSTITUTIONAL: No fever, no malaise,. Complaining of lethargy although reports to feeling a little improved today. CARDIOVASCULAR: No chest pain, no palpitations, no syncope. PULMONARY: No shortness of breath, no cough, GASTROINTESTINAL: No diarrhea, no nausea, no vomiting, no abdominal pain. NEUROLOGICAL: No headaches, no weakness, PHYSICAL EXAMINATION: GENERAL: The patient is alert and oriented x3, ill looking, elderly appearing, obese HEENT: Pupils are round and equally reacting to light. EOMI. No scleral icterus. No conjunctival pallor. Normocephalic, atraumatic. No pharyngeal erythema. No thyromegaly. CARDIOVASCULAR: S1 and S2 present. No murmurs, rubs, or gallops. PULMONARY: Diminished breath sound the bases bilaterally with some scattered rhonchi and bronchial congestion noted. ABDOMEN: Soft, nontender, nondistended,. Ostomy seen MUSCULOSKELETAL: No joint swelling or deformity. Right BKA EXTREMITIES: No cyanosis, clubbing, or pedal edema. NEUROLOGICAL: Gross neurological examination did not reveal any focal deficits. Diffusely weak SKIN: No rashes. Pale Assessment: Hypotension with hypotensive shock requiring pressor support likely secondary to acute GI bleed and hypovolemia Acute GI bleed from the ostomy secondary to an abdominal wall extravasation near the ostomy requiring sutures and cauterization 12/30/2023, resolved Acute blood loss anemia secondary to above acute kidney injury secondary to hypotension Possible acute urinary tract infection, secondary to indwelling Medina catheter, cultures showing Klebsiella pneumonia History of DVT Acute on chronic hypoxic respiratory failure requiring Airvo, status post bronchoscopy 12/31/2023, with worsening respiratory distress requiring mechanical ventilation overnight 01/01/2024, status post extubation on 01/03/2024 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 Leukocytosis, improved Moderate protein calorie malnutrition maintained on TPN Hyperkalemia, improved status post Lokelma Hyponatremia history of Crohn disease complicated with bowel perforation requiring ileostomy, also has 2 fistula in his anterior abdominal Wall, patient also has left upper chest portal to receive right lower 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 Continue TPN with dietary consult Pulmonary following recommend to continue with current regimen and patient is status post bronchoscopy with repeat bronchoscopy culture showing Klebsiella pneumonia and Bella glabrata from the aspirate on the left. Repeat blood culture negative Continue to monitor blood sugars closely and noted patient has had decreased blood sugar readings and will adjust insulins and continue with sliding scale and decrease long-acting for now Due to multiple complex medical issues, overall prognosis is guarded Will need to discuss with case management/social work regarding discharge planning and treatment plan moving forward with other consultations. The impression and plan of care has been dictated by Alyssa Hernandez, Nurse Practitioner as directed. Dr. Vicente MD I have performed a history and examination and MDM of this patient, discussed the same with the dictator, and agree with the dictator's assessment and plan as written ,documented as a scribe. Based on total visit time, I have performed more than 50% of the visit. Objective - Vital Signs Vital signs: Vital Signs Temp 98.0 F 01/07/24 04:00 Pulse 80 01/07/24 08:23 Resp 13 01/07/24 08:00 BP 106/44 01/07/24 08:00 Pulse Ox 99 01/07/24 08:00 FiO2 50 01/07/24 04:07 Intake & Output 01/06/24 01/07/24 01/07/24 18:59 06:59 18:59 Intake Total 2189 2704.791 236.871 Output Total 4325 2145 65 Balance -2136 559.791 171.871 Weight 101.6 kg 101.2 kg Intake: IV 289 1563 233 0.9% KVO 130 110 10 0.9% NS Pressure Bag 39 33 3 Ampicillin-Sulbactam 3 gm 100 100 In Sodium Chloride 0.9% 100 ml @ 200 mls/hr IVPB Q6HR [facility] Rx#:[id number] Mvi, Adult No.4 with Vit 720 120 K 10 ml Trace (Conc-1Ml/ Dose) 1 ml Sodium Chloride 4Meq/ml Vial 50 meq Potassium Acetate 10 meq Calcium Gluconate 1 gm Magnesium Sulfate gm 1 gm Potassium Phosphate 15 mmol In Amino Acid 5%- D15w 1,000 ml @ 120 mls/ hr IV .BY DURATION [facility] Rx #:[id number] Mvi, Adult No.4 with Vit 120 600 K 10 ml Trace (Conc-1Ml/ Dose) 1 ml Sodium Chloride 4Meq/ml Vial 50 meq Sodium Acetate 50 meq Calcium Gluconate 1 gm Magnesium Sulfate gm 1 gm Potassium Phosphate 15 mmol In Amino Acid 5%- D15w 1,000 ml @ 120 mls/ hr IV .BY DURATION [facility] Rx #:[id number] Intake, IV Titration 1900 1091.791 3.871 Amount Fat Emulsion 20% 250 ml @ 200 20.833 mls/hr IV MoWeFr [facility] Rx#:[id number] Mvi, Adult No.4 with Vit 1200 K 10 ml Trace (Conc-1Ml/ Dose) 1 ml Sodium Chloride 4Meq/ml Vial 50 meq Sodium Acetate 36 meq Calcium Gluconate 1 gm Magnesium Sulfate gm 1 gm Potassium Phosphate 15 mmol In Amino Acid 5%- D15w 1,000 ml @ 120 mls/ hr IV .BY DURATION [facility] Rx #:[id number] Norepinephrine 4 mg In 57.291 3.871 Sodium Chloride 0.9% 250 ml @ 0.03 MCG/KG/MIN 11. 613 mls/hr IV .[id number] [facility] Rx#:[id number] Sodium Chloride 4Meq/ml 1034.5 Vial 50 meq Potassium Acetate 10 meq Calcium Gluconate 1 gm Magnesium Sulfate gm 1 gm Potassium Phosphate 15 mmol In Amino Acid 5%-D15w 1,000 ml @ 120 mls/hr IV .BY DURATION [facility] Rx#: [id number] Vancomycin 1,500 mg In 500 Sodium Chloride 0.9% 500 ml 500 ml @ 167 mls/hr IVPB Q16H [facility] Rx#: [id number] Oral 50 Output: Gastric Drainage 1600 Urine 1725 1445 65 Stool 700 Oral Regurgitation 1000 Other: Voiding Method Indwelling Catheter Indwelling Catheter Indwelling Catheter ABP, PAP, CO, CI - Last Documented Arterial Blood Pressure 108/54 - Labs CBC & Chem 7: 01/07/24 05:23 01/07/24 05:23 Labs: Abnormal Lab Results - Last 24 Hours (Table) 01/06/24 01/06/24 01/07/24 Range/Units 17:58 20:58 05:14 RBC (4.30-5.90) m/uL Hgb (13.0-17.5) gm/dL Hct (39.0-53.0) % MCHC (31.0-37.0) g/dL RDW (11.5-15.5) % Chloride (98-107) mmol/L Creatinine (0.66-1.25) mg/dL Glucose (74-99) mg/dL POC Glucose (mg/dL) 114 H 115 H 123 H (70-110) mg/dL 01/07/24 01/07/24 Range/Units 05:23 05:23 RBC 3.17 L (4.30-5.90) m/uL Hgb 8.9 L (13.0-17.5) gm/dL Hct 29.3 L (39.0-53.0) % MCHC 30.3 L (31.0-37.0) g/dL RDW 16.0 H (11.5-15.5) % Chloride 108 H (98-107) mmol/L Creatinine 0.48 L (0.66-1.25) mg/dL Glucose 114 H (74-99) mg/dL POC Glucose (mg/dL) (70-110) mg/dL Microbiology - Last 24 Hours (Table) 01/01/24 02:01 Blood Culture - Final Blood 01/03/24 12:00 Gram Stain - Final Lung Aspirate - Left Bronchial Washings Culture - Final Klebsiella pneumoniae Bella glabrata
[2024-01-07 17:11] LABS: Glucose,Whole Blood 104 mg/dL (70-110)
--- NOTE | 2024-01-07 17:36 | P.PN ---
Subjective Pt seen and evaluated at bedside. no new bleeding events from ostomy site. Objective - Vital Signs Vital signs: Vital Signs Temp 98.8 F 01/07/24 12:00 Pulse 86 01/07/24 16:38 Resp 18 01/07/24 15:00 BP 118/47 01/07/24 15:00 Pulse Ox 96 01/07/24 15:00 FiO2 50 01/07/24 04:07 Intake & Output 01/06/24 01/07/24 01/07/24 18:59 06:59 18:59 Intake Total 2189 3750.291 2905.516 Output Total 4325 2145 1610 Balance -2136 5431.944 4223.516 Weight 101.6 kg 101.2 kg Intake: IV 289 1563 1863 0.9% KVO 130 110 80 0.9% NS Pressure Bag 39 33 3 Ampicillin-Sulbactam 3 gm 100 200 In Sodium Chloride 0.9% 100 ml @ 200 mls/hr IVPB Q6HR [facility] Rx#:[id number] Mvi, Adult No.4 with Vit 720 1080 K 10 ml Trace (Conc-1Ml/ Dose) 1 ml Sodium Chloride 4Meq/ml Vial 50 meq Potassium Acetate 10 meq Calcium Gluconate 1 gm Magnesium Sulfate gm 1 gm Potassium Phosphate 15 mmol In Amino Acid 5%- D15w 1,000 ml @ 120 mls/ hr IV .BY DURATION [facility] Rx #:[id number] Mvi, Adult No.4 with Vit 120 600 K 10 ml Trace (Conc-1Ml/ Dose) 1 ml Sodium Chloride 4Meq/ml Vial 50 meq Sodium Acetate 50 meq Calcium Gluconate 1 gm Magnesium Sulfate gm 1 gm Potassium Phosphate 15 mmol In Amino Acid 5%- D15w 1,000 ml @ 120 mls/ hr IV .BY DURATION [facility] Rx #:[id number] Vancomycin 1,750 mg In 500 Sodium Chloride 0.9% 500 ml 500 ml @ 167 mls/hr IVPB Q24H [facility] Rx#: [id number] Intake, IV Titration 1900 2137.291 1042.516 Amount Fat Emulsion 20% 250 ml @ 200 20.833 mls/hr IV MoWeFr [facility] Rx#:[id number] Mvi, Adult No.4 with Vit 1045.5 K 10 ml Trace (Conc-1Ml/ Dose) 1 ml Sodium Chloride 4Meq/ml Vial 50 meq Potassium Acetate 10 meq Calcium Gluconate 1 gm Magnesium Sulfate gm 1 gm Potassium Phosphate 15 mmol In Amino Acid 5%- D15w 1,000 ml @ 120 mls/ hr IV .BY DURATION [facility] Rx #:[id number] Mvi, Adult No.4 with Vit 1200 K 10 ml Trace (Conc-1Ml/ Dose) 1 ml Sodium Chloride 4Meq/ml Vial 50 meq Sodium Acetate 36 meq Calcium Gluconate 1 gm Magnesium Sulfate gm 1 gm Potassium Phosphate 15 mmol In Amino Acid 5%- D15w 1,000 ml @ 120 mls/ hr IV .BY DURATION [facility] Rx #:[id number] Norepinephrine 4 mg In 57.291 44.516 Sodium Chloride 0.9% 250 ml @ 0.03 MCG/KG/MIN 11. 613 mls/hr IV .[id number] [facility] Rx#:[id number] Sodium Chloride 4Meq/ml 1034.5 998 Vial 50 meq Potassium Acetate 10 meq Calcium Gluconate 1 gm Magnesium Sulfate gm 1 gm Potassium Phosphate 15 mmol In Amino Acid 5%-D15w 1,000 ml @ 120 mls/hr IV .BY DURATION [facility] Rx#: [id number] Vancomycin 1,500 mg In 500 Sodium Chloride 0.9% 500 ml 500 ml @ 167 mls/hr IVPB Q16H [facility] Rx#: [id number] Oral 50 Output: Gastric Drainage 1600 Urine 1725 1445 960 Stool 700 650 Oral Regurgitation 1000 Other: Voiding Method Indwelling Catheter Indwelling Catheter Indwelling Catheter ABP, PAP, CO, CI - Last Documented Arterial Blood Pressure 108/54 - Exam gen: nad cv: rrr pul: non labored abd: soft, non distended,ileostomy site c/d/di - Labs CBC & Chem 7: 01/07/24 05:23 01/07/24 05:23 Labs: Abnormal Lab Results - Last 24 Hours (Table) 01/06/24 01/06/24 01/07/24 Range/Units 17:58 20:58 05:14 RBC (4.30-5.90) m/uL Hgb (13.0-17.5) gm/dL Hct (39.0-53.0) % MCHC (31.0-37.0) g/dL RDW (11.5-15.5) % Chloride (98-107) mmol/L Creatinine (0.66-1.25) mg/dL Glucose (74-99) mg/dL POC Glucose (mg/dL) 114 H 115 H 123 H (70-110) mg/dL 01/07/24 01/07/24 Range/Units 05:23 05:23 RBC 3.17 L (4.30-5.90) m/uL Hgb 8.9 L (13.0-17.5) gm/dL Hct 29.3 L (39.0-53.0) % MCHC 30.3 L (31.0-37.0) g/dL RDW 16.0 H (11.5-15.5) % Chloride 108 H (98-107) mmol/L Creatinine 0.48 L (0.66-1.25) mg/dL Glucose 114 H (74-99) mg/dL POC Glucose (mg/dL) (70-110) mg/dL Assessment and Plan Assessment: 48 yo male w/ ilostomy bleeding resolved -no further intervention -surgery will sign off -please call prn James Trent DO [id number] general surgery/trauma Time with Patient: Less than 30
[2024-01-07] MEDS: ENOXAPARIN 80 MG/0.8 ML SYRINGE SQ SCH (20:42)
[2024-01-07] MEDS: INSULIN DETEMIR (LEVEMIR) 100 UNIT/ML SYR SQ SCH (20:43)
[2024-01-07 23:15] LABS: Glucose,Whole Blood 108 mg/dL (70-110)
[2024-01-08 06:02] LABS: Glucose,Whole Blood 95 mg/dL (70-110)
[2024-01-08] MEDS: VANCOMYCIN TROUGH DUE 1 EACH MISC MISCELLANE ONE (08:00)
--- NOTE | 2024-01-08 08:15 | XR ---
EXAMINATION TYPE: XR chest 1V portable DATE OF EXAM: 01/08/2024 COMPARISON: 01/07/2024 HISTORY: Chest pain TECHNIQUE: Single frontal view of the chest is obtained. FINDINGS: Improving perihilar and basilar infiltrates. The cardiac silhouette size is within normal limits. The osseous structures are intact. IMPRESSION: 1. Improving perihilar and basilar infiltrates. [facility], , 01/08/2024 8:13 AM
[2024-01-08 11:47] LABS: ALT 17 U/L (4-49); AST 23 U/L (17-59); African American GFR (CKD) >90 (>60 ml/min/1.73 sqM); Albumin 2.5 g/dL (3.5-5.0); Alkaline Phosphatase 89 U/L (38-126); Anion Gap 3 mmol/L; Blood Urea Nitrogen 22 mg/dL (9-20); Calcium 8.4 mg/dL (8.4-10.2); Carbon Dioxide 29 mmol/L (22-30); Chloride 106 mmol/L (98-107); Glucose 102 mg/dL (74-99); Magnesium 2.1 mg/dL (1.6-2.3); Non-African American GFR(CKD) >90 (>60 ml/min/1.73 sqM); Phosphorus 3.7 mg/dL (2.5-4.5); Potassium 4.4 mmol/L (3.5-5.1); Sodium 138 mmol/L (137-145); Total Bilirubin 0.6 mg/dL (0.2-1.3); Total Protein 6.4 g/dL (6.3-8.2)
[2024-01-08 11:51] LABS: Glucose,Whole Blood 97 mg/dL (70-110)
--- NOTE | 2024-01-08 12:51 | P.PN ---
Subjective Progress Note Date: 01/08/24 Principal diagnosis: Acute hypoxic respiratory failure with bilateral pneumonia secondary to MRSA On 01/04/2024, the patient is being seen for a follow-up. The patient was weane d off the mechanical ventilator and the patient was extubated to BiPAP and this morning the patient is on 6 L of O2 nasal cannula. Cough remains weak and the patient is unable to bring up much sputum. His early sputum analysis was positive for MRSA. Chest x-ray from today shows a right-sided pleural effusion and atelectatic changes lung base bilaterally. The patient seems to be calm and comfortable and awake and communicating. He is profoundly weak. He remains on norepinephrine which is running at 0.05 mcg/kg/min. Vasopressin was discontinued. IV fluids are currently at KVO. Remains on TPN for nutritional support. Sodium is at 142, potassium 3.6 BUN is 17 with a creatinine of 0.5. CBC still pending for now. The patient remains on Unasyn and vancomycin. Remains on TPN for nutritional support. He is currently off propofol. Ileostomy is functional and there is no evidence of any bleeding from the ileostomy or the enterocutaneous fistulas. On 01/05/2024, the patient is awake and alert and the patient is currently on a BiPAP is alternating between BiPAP pressures of 12/5 with an FiO2 40% and 40 disimpaction by nasal cannula. Chest x-ray showing atelectasis and possibly development of right-sided pleural effusion. The patient was given diuretics yesterday and the patient has diuresed adequately and he has developed hypokalemia. Fluid balance is -2.5 L over the past 24 hours. Urine output is more than 100 cc an hour. Ileostomy output is normal drop 3.7 L over the past 24 hours. Remains on TPN for nutritional support at a rate of 120 cc an hour. The white cell count of 4.3 with a hemoglobin of 8. Sodium is at 146, BUN 16 with a creatinine of 0.5. Potassium level is at 3.2. Serum bicarb is at 32. Awake and alert. Profoundly weak. Communicating. The patient remains on Unasyn and vancomycin. He is currently off pressors. Patient was seen today on 01/06/2024, remains in the ICU, on BiPAP 12/5/40% remains on antibiotics in the form of Unasyn and vancomycin remains on TPN at 120 cc/h. Chest x-ray continues to show atelectasis and small right-sided pleural effusion patient remains on diuretics, and he diuresed adequately. Continues to diurese, and continues to have good urine output. Continues to have significant ileostomy output. Patient remains on TPN for nutritional support. Labs showed WBC count 4.5 hemoglobin 7.9 basic metabolic profile is normal bicarb is 35 renal profile is normal Patient was evaluated on 01/07/2024, remains in the ICU, developed hypotension last night required going back on norepinephrine at 0.05 mcg/kg/min. Today the patient is doing well, his mean arterial pressure is in the 80s, hence I recommended tapering and possibly discontinuation of norepinephrine. Patient was on pressure support 1250%, today he is on nasal cannula, does not seem to be in distress. He feels fine. His left groin arterial line has been removed. Continues to have significant drainage from his ostomy and fistula in the abdomen, and this is connected to a drainage tube. Patient remains on TPN at 1 of 25 cc/h. Chest x-ray continues to show some limited airspace disease in the right lower lobe, patient tells me today that he feels better than he felt yesterday in spite of requiring norepinephrine and I plan to discontinue WBC count is 7.0 hemoglobin is 8.9. Basic metabolic profile is normal renal profile is normal Was seen today on 01/08/2024 remains in the ICU on 2 L nasal cannula receiving TPN remains on antibiotics intermittently on BiPAP 02/19/40%. Patient is an overflow he needs to go to the floor once a bed becomes available, and we will plan to transfer the patient down to 3 S. Relatively asymptomatic, basic metabolic profile is normal BUN is 22 creatinine 0.47 chest x-ray showing improving perihilar and basilar infiltrates Objective - Vital Signs Vital signs: Vital Signs Temp 99.0 F 01/08/24 04:00 Pulse 83 01/08/24 12:25 Resp 15 01/08/24 04:00 BP 122/43 01/08/24 04:00 Pulse Ox 95 01/08/24 08:25 FiO2 40 01/08/24 08:26 Intake & Output 01/07/24 01/08/24 01/08/24 18:59 06:59 18:59 Intake Total 3365.516 2140 Output Total 2370 525 Balance 623.066 8027 Weight 98.3 kg 98.3 kg Intake: IV 2323 1080 0.9% KVO 80 0.9% NS Pressure Bag 3 Ampicillin-Sulbactam 3 gm 300 In Sodium Chloride 0.9% 100 ml @ 200 mls/hr IVPB Q6HR [facility] Rx#:[id number] Mvi, Adult No.4 with Vit 1440 1080 K 10 ml Trace (Conc-1Ml/ Dose) 1 ml Sodium Chloride 4Meq/ml Vial 50 meq Potassium Acetate 10 meq Calcium Gluconate 1 gm Magnesium Sulfate gm 1 gm Potassium Phosphate 15 mmol In Amino Acid 5%- D15w 1,000 ml @ 120 mls/ hr IV .BY DURATION [facility] Rx #:[id number] Vancomycin 1,750 mg In 500 Sodium Chloride 0.9% 500 ml 500 ml @ 167 mls/hr IVPB Q24H [facility] Rx#: [id number] Intake, IV Titration 1042.516 960 Amount Norepinephrine 4 mg In 44.516 Sodium Chloride 0.9% 250 ml @ 0.03 MCG/KG/MIN 11. 613 mls/hr IV .[id number] [facility] Rx#:[id number] Sodium Chloride 4Meq/ml 998 960 Vial 50 meq Potassium Acetate 10 meq Calcium Gluconate 1 gm Magnesium Sulfate gm 1 gm Potassium Phosphate 15 mmol In Amino Acid 5%-D15w 1,000 ml @ 120 mls/hr IV .BY DURATION [facility] Rx#: [id number] Oral 100 Output: Urine 1720 525 Stool 650 Other: Voiding Method Indwelling Catheter Indwelling Catheter # Bowel Movements 1,100 800 ABP, PAP, CO, CI - Last Documented Arterial Blood Pressure 108/54 - Exam GENERAL EXAM: 48-year-old male,not in distress. On 2 L nasal cannula HEAD: Normocephalic and atraumatic EYES: Normal reaction of pupils, equal size. NOSE: Clear with pink turbinates. THROAT: No erythema or exudates. NECK: No masses, no JVD. CHEST: No chest wall deformity. Left subclavian double-lumen central line LUNGS: Equal air entry with no crackles, wheeze, rhonchi or dullness. CVS: S1 and S2 normal with no audible murmur, regular rhythm. No extra heart sounds ABDOMEN: Ileostomy with brown stool, enterocutaneous fistula noted with stool no evidence of any bleeding.. Bowel sounds present. Abdomen is soft and nontender. No organomegaly. Multiple surgical scars noted throughout the whole abdomen. SKIN: No rashes CENTRAL NERVOUS SYSTEM: Alert and oriented x 3 no gross focal deficit EXTREMITIES: Right BKA, left leg weakness and left foot drop, remaining distal pulses are weak and only found with Doppler. Extremities are showing diminished pulses bilaterally otherwise no significant cyanosis. - Labs CBC & Chem 7: 01/07/24 05:23 01/08/24 11:10 Labs: Abnormal Lab Results - Last 24 Hours (Table) 01/08/24 Range/Units 11:10 BUN 22 H (9-20) mg/dL Creatinine 0.47 L (0.66-1.25) mg/dL Glucose 102 H (74-99) mg/dL Albumin 2.5 L (3.5-5.0) g/dL Assessment and Plan Assessment: Impression: Acute hypoxic respiratory failure, with bilateral pneumonia in the lung bases/atelectasis and the bronchial lavage that was done earlier was positive for MRSA. 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 Addressed accordingly Recent history of ventilator dependent respiratory failure, secondary to pneumonia, microbiology from BAL positive for haemophilus influenzae History of DVT, previously on therapeutic dose of Lovenox, which is currently stopped History of Crohn's disease complicated by bowel perforation status post colectomy and diverting ileostomy. 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 Currently receiving TPN for nutritional support. 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
--- NOTE | 2024-01-08 17:46 | CDI ---
Documentation Clarification Form Date: 01/08/2024 04:55:19 PM From: Stephanie Child RN CCDS Phone: [phone] Admit Date: 12/30/2023 08:39:00 AM Patient Name: Ponce Beckett Visit Number: [id number] Discharge Date: ATTENTION: The Clinical Documentation Specialists (CDI) and [facility] Coding Staff appreciate your assistance in clarifying documentation. Please respond to the clarification below the line at the bottom and electronically sign. The CDI & [facility] Coding staff will review the response and follow-up if needed. Please note: Queries are made part of the Legal Health Record. If you have any questions, please contact the author of this message via ITS. Provider: Alyssa Hernandez NP Possible acute urinary tract infection secondary to indwelling Medina catheter is documented 01/02, Medicine note. For each diagnosis, documentation must be clear to determine if the condition was present at the time of the patients inpatient admission or developed during the hospital stay. Additional clarification regarding the UTI, Secondary to indwelling Medina catheter is requested. History/Risk Factors: 48 year old male presents to the ED after recent discharge because of debility and having issues with TPN supplies. On 12/28 Patient was evaluated by Nephrology for [facility] and Surgery for GI Bleed after dark blood was seen in the ostomy attached to drainage system. Made inpt on 12/29 with ICU admission. Medical History: Crohn disease complicated with bowel perforation requiring ileostomy, also has 2 fistula in his anterior abdominal wall. Left upper chest port to receive TPN, BKA and CVA with hemiparesis. 12/25, HP and Medical record. Clinical Indicators: 12/28 Urinary catheter initiation 12/28 UA light yellow, clear, ph 5.0, specific gravity 1.014, protein trace, glucose negative, ketones negative, blood negative, nitrate negative, bilirubin negative, urine urobilinogen <2.0, leukocyte esterase negative. 12/31 Urine Culture, Catheterized Klebsiella pneumoniae Treatment: 12/30 Vancomycin IVPB x 1, 12/31 01/02 Zosyn IVPB Q8H; 12/31 01/02 Vancomycin IVPB Q12H; 01/02 01/05 Vancomycin IVPB Q16H; 01/02 Ampicillin IVPB Q6H; 01/06 Vancomycin IVPB Q24H Definition of Present on Admission (POA): A diagnosis present at the time the order for admission to inpatient status was written. Please clarify if the possible acute urinary tract infection secondary to indwelling Medina catheter was POA [ x ] Y = Yes, the condition was present at the time of the order for inpatient admission. [ ] N = No, the condition was not present at the time of the order for inpatient admission. [ ] W = Clinically undetermined if the condition was present at the time of the order for inpatient admission. (Template Last Revised: May 2020) MTDD
[2024-01-08 17:51] LABS: Glucose,Whole Blood 112 mg/dL (70-110)
[2024-01-08 21:02] LABS: Glucose,Whole Blood 119 mg/dL (70-110)
[2024-01-08 23:41] LABS: Glucose,Whole Blood 120 mg/dL (70-110)
--- NOTE | 2024-01-09 05:14 | P.PN ---
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 Patient came back to the ER today because of debility and having issues with his TPN supplies. There has been some issues with primary care appointments and orders with TPN requiring signature from his PCP. At this time patient denies any chest pain or shortness of breath. There was no complaint of fever or chills. Denies any nausea, vomiting, abdominal pain. Denies any lightheaded dizziness. Initial lab work done in the ER showed W6.3, hemoglobin 20.7, platelet count 264, sodium 130, potassium 4.9, BUN 20, creatinine 0.41, phosphorus 2.4, alk phos 133, total protein 9 Patient admitted to internal medicine service 12/26. Patient seen and examined. Complaining of pain in his right hand. D enies any shortness of breath /12. Patient seen and examined. Potassium level this morning was 5.5, patient was getting potassium supplementation, will DC it for now. 12/28. Patient seen and examined. Patient had a rapid response called overnight for low blood pressure, patient was given 2-1/2 L of fluid. Labs on this morning showed WBC 10.4, hemoglobin 14.4, platelet count 420, sodium 124, p otassium 5.5, BUN 104, creatinine 1.59. Ostomy output is blood-tinged. 12/30/2023 Patient continues in the ICU requiring low-dose pressor support and currently being weaned. Multiple consultations following including general surgery and did a washout of the abdomen early this morning along with cauterizing and placing sutures to an area near the ostomy that had been bleeding. Hemoglobin is stable and is being closely monitored with hemoglobins every 6 hours. Transfuse if 7 or less. Patient to continue with strict n.p.o. and is maintained on TPN. Blood sugars have been more elevated and will add long- acting and adjust insulins accordingly 12/31/2023 Patient continues in the ICU with multiple consultations following. Patient requiring increased oxygen demands currently on 6 L and transition to Airvo and pulmonary second rigger following planning on bronchoscopy today. Patient is a febrile although continues with an elevated white count and hemoglobin is stable above 8 with no active bleeding noted. Patient is n.p.o. maintained on TPN at this time. Blood sugars continue to be in the 200s consistently and will adjust long-acting and continue sliding scale. 01/01/2024 patient is seen in follow up today and experienced increasing respiratory demands and became more obtunded and unresponsive requiring mechanical ventilation. Patient FiO2 is 50% with a PEEP of 8 and is status post bronchoscopy yesterday. Patient maintained on Levophed and vasopressin along with propofol. White count is elevated and patient is continued on IV antibiotics in the form of vancomycin and Zosyn. Cultures have been sent and pending at this time. Will consult infectious disease and appreciate input and recommendations. Hemoglobin is stable at 7.8 with no active bleeding noted. Potassium 2.7 and magnesium 1.5 along with phosphorus 0.9 and being replaced per protocol. Kidney functions remained stable at this time other than a chloride of 115 and sodium is 142. Patient is also being started on Eraxis. Recommend adjusting TPN per dietary and pharmacy. Overall prognosis remains extremely guarded at this time. 01/02/2024 Patient is evaluated in the intensive care unit he is currently intubated however he is awake alert oriented with eye moving and able to respond with nods to simple questions. Pressor support in the process of being weaned her blood pressure 144/65. Mechanical ventilator with an FiO2 of 50% and a PEEP of . Continues on TPN. Rectal tube in place continues with loose stools. C.Dif was negative. Cultures currently pending. Remains on Antibiotics with IV Zosyn, IV vancomycin as well as IV anidulafungin. Procalcitonin level was mildly elevated at 1.38. X-ray this morning reveals basilar atelectasis on the left as well as right midlung. Has white blood cell count is down to 10.7 today hemoglobin of 8.1. Sodium level is 142, potassium 2.6, BUN of 43 creatinine of 0.68. Magnesium 1.7. Blood glucose in the 150s continues on Levemir twice a day for this. 01/03/2024 Patient is seen in follow-up today remains intubated and discussing possible e xtubation today with pulmonary following scheduled to undergo bronchoscopy as well. Patient is maintained on antibiotics with infectious disease following while awaiting urine cultures as well as sputum culture showing MRSA. Preliminary urine is gram-negative and will continue current antibiotic regimen. Patient remains on low-dose pressor support and attempting to wean. TPN continues and tolerating. Continue to monitor Accu-Cheks and continue current regimen although blood sugars have been a little lower today. Recommend Accu- Cheks before meals and at bedtime and 2 AM. Patient is alert and responding on exam as propofol is off. Patient extremely weak and lethargic and falls asleep during conversation. Patient also appears frustrated as he is unable to communicate due to intubation 01/03. Patient seen and examined. 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 Patient received IV Lasix this morning. No bleeding around the ileostomy site. 01/04. Patient examined. Potassium placement ordered. States he feels better compared to yesterday. Denies any chest pain 01/06/2024 Patient is seen in follow-up continues in the ICU and is currently maintained on nasal cannula and tolerating thus far. Patient continues on TPN with multiple consultations following. Awaiting finalized cultures on repeat sputum culture from most recent bronchoscopy. Patient is afebrile and white count remains normal. Patient is continued on IV antibiotics in the form of Unasyn as well as vancomycin. Patient also continues on low-dose norepinephrine and is being weaned. 01/07/2024 Patient is seen in follow-up today and remains in the ICU and currently has been weaned off of Levophed maintaining blood pressures. Planning for transferring out of the ICU if blood pressure remains stable. Patient is afebrile and continued on IV antibiotics and will continue the same with infectious disease following. White count has normalized and patient is afebrile. Patient continues on TPN and will continue at this time. Patient also continues on 2 L via nasal cannula as well as titrating and weaning as tolerated. Patient using BiPAP intermittently as needed as well. Chest x-ray today showed a stable chest. 01/08/2024 Patient is seen in follow-up today remains off pressor support and awaiting a bed on 3 S. is a downgrade from ICU. Multiple consultations following and awaiting PT/OT therapy evaluation as patient will likely need ECF for continued strength and mobility. Currently working on discharge planning regarding TPN as patient's primary care provider Dr. Ivey has reported she needs to see the patient prior to reinitiating any further orders and previous surgeon from [facility] has refused to sign any future orders regarding TPN. Social work following and have also discussed possible visiting physician to come to the home as patient is mostly bedbound and has supportive care at the home per family. Patient is afebrile with no reports of chest pain or shortness of breath. REVIEW OF SYSTEMS: CONSTITUTIONAL: No fever, no malaise,. Complaining of lethargy although reports to feeling a little improved today. CARDIOVASCULAR: No chest pain, no palpitations, no syncope. PULMONARY: No shortness of breath, no cough, GASTROINTESTINAL: No diarrhea, no nausea, no vomiting, no abdominal pain. NEUROLOGICAL: No headaches, reports generalized weakness PHYSICAL EXAMINATION: GENERAL: The patient is alert and oriented x3, ill looking, elderly appearing, obese HEENT: Pupils are round and equally reacting to light. EOMI. No scleral icterus. No conjunctival pallor. Normocephalic, atraumatic. No pharyngeal erythema. No thyromegaly. CARDIOVASCULAR: S1 and S2 present. No murmurs, rubs, or gallops. PULMONARY: Diminished breath sound the bases bilaterally with some scattered rhonchi and bronchial congestion noted. ABDOMEN: Soft, nontender, nondistended,. Ostomy seen MUSCULOSKELETAL: No joint swelling or deformity. Right BKA EXTREMITIES: No cyanosis, clubbing, or pedal edema. NEUROLOGICAL: Gross neurological examination did not reveal any focal deficits. Diffusely weak SKIN: No rashes. Pale Assessment: Hypotension with hypotensive shock requiring pressor support likely secondary to acute GI bleed and hypovolemia Acute GI bleed from the ostomy secondary to an abdominal wall extravasation near the ostomy requiring sutures and cauterization 12/30/2023, resolved Acute blood loss anemia secondary to above acute kidney injury secondary to hypotension acute urinary tract infection, secondary to indwelling Medina catheter, while inpatient. 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 Patient is considered a downgrade out of the ICU Multiple consultations following and patient will continue on IV antibiotics with infectious disease following. Continue TPN with dietary consult Pulmonary following recommend to continue with current regimen and patient is status post bronchoscopy with repeat bronchoscopy culture showing Klebsiella pneumonia and Bella glabrata from the aspirate on the left. Repeat blood culture negative Continue to monitor blood sugars closely and noted patient has had decreased blood sugar readings and will adjust insulins and continue with sliding scale and decrease long-acting for now Social work following and awaiting PT/OT therapy evaluation as patient may possibly need ECF. PCP Dr. Ivey would like to see the patient and reevaluate prior to reinitiating any TPN orders and [facility] surgeon is refusing to further write for TPN. Discussed possible visiting physicians with family and they report, they do not accept his insurance and currently looking into other options. Will attempt to contact Dr. Ivey's office for further discussion. Due to multiple complex medical issues, overall prognosis is guarded The impression and plan of care has been dictated by Alyssa Hernandez, Nurse Practitioner as directed. Dr. Vicente MD I have performed a history and examination and MDM of this patient, discussed the same with the dictator, and agree with the dictator's assessment and plan as written ,documented as a scribe. Based on total visit time, I have performed more than 50% of the visit. Objective - Vital Signs Vital signs: Vital Signs Temp 99.0 F 01/08/24 04:00 Pulse 87 01/08/24 08:42 Resp 15 01/08/24 04:00 BP 122/43 01/08/24 04:00 Pulse Ox 95 01/08/24 08:25 FiO2 40 01/08/24 08:26 Intake & Output 01/07/24 01/08/24 01/08/24 18:59 06:59 18:59 Intake Total 3365.516 2140 Output Total 2370 525 Balance 211.732 3677 Weight 98.3 kg Intake: IV 2323 1080 0.9% KVO 80 0.9% NS Pressure Bag 3 Ampicillin-Sulbactam 3 gm 300 In Sodium Chloride 0.9% 100 ml @ 200 mls/hr IVPB Q6HR [facility] Rx#:[id number] Mvi, Adult No.4 with Vit 1440 1080 K 10 ml Trace (Conc-1Ml/ Dose) 1 ml Sodium Chloride 4Meq/ml Vial 50 meq Potassium Acetate 10 meq Calcium Gluconate 1 gm Magnesium Sulfate gm 1 gm Potassium Phosphate 15 mmol In Amino Acid 5%- D15w 1,000 ml @ 120 mls/ hr IV .BY DURATION [facility] Rx #:[id number] Vancomycin 1,750 mg In 500 Sodium Chloride 0.9% 500 ml 500 ml @ 167 mls/hr IVPB Q24H [facility] Rx#: [id number] Intake, IV Titration 1042.516 960 Amount Norepinephrine 4 mg In 44.516 Sodium Chloride 0.9% 250 ml @ 0.03 MCG/KG/MIN 11. 613 mls/hr IV .[id number] [facility] Rx#:[id number] Sodium Chloride 4Meq/ml 998 960 Vial 50 meq Potassium Acetate 10 meq Calcium Gluconate 1 gm Magnesium Sulfate gm 1 gm Potassium Phosphate 15 mmol In Amino Acid 5%-D15w 1,000 ml @ 120 mls/hr IV .BY DURATION [facility] Rx#: [id number] Oral 100 Output: Urine 1720 525 Stool 650 Other: Voiding Method Indwelling Catheter Indwelling Catheter # Bowel Movements 1,100 800 ABP, PAP, CO, CI - Last Documented Arterial Blood Pressure 108/54 - Labs CBC & Chem 7: 01/07/24 05:23 01/08/24 11:10
[2024-01-09 06:23] LABS: Glucose,Whole Blood 122 mg/dL (70-110)
[2024-01-09 07:26] LABS: ALT 16 U/L (4-49); AST 24 U/L (17-59); African American GFR (CKD) >90 (>60 ml/min/1.73 sqM); Albumin 2.5 g/dL (3.5-5.0); Alkaline Phosphatase 88 U/L (38-126); Anion Gap 3 mmol/L; Blood Urea Nitrogen 22 mg/dL (9-20); Calcium 8.6 mg/dL (8.4-10.2); Carbon Dioxide 30 mmol/L (22-30); Chloride 106 mmol/L (98-107); Glucose 116 mg/dL (74-99); Magnesium 2.1 mg/dL (1.6-2.3); Non-African American GFR(CKD) >90 (>60 ml/min/1.73 sqM); Phosphorus 3.9 mg/dL (2.5-4.5); Potassium 4.6 mmol/L (3.5-5.1); Sodium 139 mmol/L (137-145); Total Bilirubin 0.5 mg/dL (0.2-1.3); Total Protein 6.4 g/dL (6.3-8.2)
--- NOTE | 2024-01-09 08:43 | P.PN ---
Subjective Progress Note Date: 01/08/24 Principal diagnosis: Reason for follow-up is sepsis UTI/pneumonia Patient is a 48-year-old male with a past medical history difficult for CVA TIA DVT did have a history of Crohn's disease with bowel perforation requiring ileostomy and also have a enterocutaneous fistula patient initially presentation to the hospital was weakness not feeling well subsequent did have w orsening of the respiratory status requiring intubation did have a fever concerning for possible pneumonia. On today's evaluation that is 01/08/2024, Patient is afebrile this morning patient denies having any chest pain shortness of breath and no worsening cough, the patient is currently on 2 L nasal cannula oxygen patient denies any abdominal pain no nausea no vomiting still has significant output through his ileostomy. No CBC was done today creatinine 0.47 Vanco trough is 15.8 repeat sputum with Klebsiella and Bella glabrata Objective - Vital Signs Vital signs: Vital Signs Temp 99.0 F 01/08/24 04:00 Pulse 84 01/08/24 12:11 Resp 15 01/08/24 04:00 BP 122/43 01/08/24 04:00 Pulse Ox 95 01/08/24 08:25 FiO2 40 01/08/24 08:26 Intake & Output 01/07/24 01/08/24 01/08/24 18:59 06:59 18:59 Intake Total 3365.516 2140 Output Total 2370 525 Balance 024.308 8309 Weight 98.3 kg Intake: IV 2323 1080 0.9% KVO 80 0.9% NS Pressure Bag 3 Ampicillin-Sulbactam 3 gm 300 In Sodium Chloride 0.9% 100 ml @ 200 mls/hr IVPB Q6HR [facility] Rx#:[id number] Mvi, Adult No.4 with Vit 1440 1080 K 10 ml Trace (Conc-1Ml/ Dose) 1 ml Sodium Chloride 4Meq/ml Vial 50 meq Potassium Acetate 10 meq Calcium Gluconate 1 gm Magnesium Sulfate gm 1 gm Potassium Phosphate 15 mmol In Amino Acid 5%- D15w 1,000 ml @ 120 mls/ hr IV .BY DURATION [facility] Rx #:[id number] Vancomycin 1,750 mg In 500 Sodium Chloride 0.9% 500 ml 500 ml @ 167 mls/hr IVPB Q24H [facility] Rx#: [id number] Intake, IV Titration 1042.516 960 Amount Norepinephrine 4 mg In 44.516 Sodium Chloride 0.9% 250 ml @ 0.03 MCG/KG/MIN 11. 613 mls/hr [id number] Rx#:[id number] Sodium Chloride 4Meq/ml 998 960 Vial 50 meq Potassium Acetate 10 meq Calcium Gluconate 1 gm Magnesium Sulfate gm 1 gm Potassium Phosphate 15 mmol In Amino Acid 5%-D15w 1,000 ml @ 120 mls/hr IV .BY DURATION [facility] Rx#: [id number] Oral 100 Output: Urine 1720 525 Stool 650 Other: Voiding Method Indwelling Catheter Indwelling Catheter # Bowel Movements 1,100 800 ABP, PAP, CO, CI - Last Documented Arterial Blood Pressure 108/54 - Exam GENERAL DESCRIPTION: Middle-age male intubated on the vent RESPIRATORY SYSTEM: Unlabored breathing , decreased breath sounds at bases HEART: S1 S2 regular rate and rhythm , ABDOMEN: Soft , no tenderness EXTREMITIES: Diffuse swelling to the leg no redness, 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 - Labs CBC & Chem 7: 01/07/24 05:23 01/09/24 06:17 Labs: Abnormal Lab Results - Last 24 Hours (Table) 01/08/24 Range/Units 11:10 BUN 22 H (9-20) mg/dL Creatinine 0.47 L (0.66-1.25) mg/dL Glucose 102 H (74-99) mg/dL Albumin 2.5 L (3.5-5.0) g/dL Assessment and Plan (1) Pneumonia Current Visit: Yes Status: Acute Code(s): J18.9 - PNEUMONIA, UNSPECIFIED ORGANISM SNOMED Code(s): 969009145 (2) Sepsis Current Visit: No Status: Acute Code(s): A41.9 - SEPSIS, UNSPECIFIED [facility] SNOMED Code(s): 43650493 Plan: 1patient with sepsis/septic shock in this patient who did have a fever elevated white count high clinical suspicion of possible left lower lobe pneumonia in this patient who did have multiple comorbidities and complicated intra-abdominal history with history of bowel perforation and did have ileostomy and enterocutaneous fistula keeping in mind the patient has been in and out of the hospital we will need to cover for the resistant gram-positive as well as gram- negative pathogen 2-patient bronchial culture grew MRSA urine is growing Klebsiella that is sensitive to Unasyn, repeat bronchoscopy cultures are growing Klebsiella and Bella glabrata 3patient did have resolution of his fever and the patient white count normalized 4patient is currently being treated with vancomycin and Unasyn however will transition to Augmentin and Zyvox on DC Dictation was produced using [employer] software. please excuse any grammatical, word or spelling errors. Time with Patient: Less than 30
[2024-01-09] MEDS: CHOLECALCIFEROL 25 MCG (1000 IU) TABLET PO SCH (09:13)
[2024-01-09 11:35] LABS: Glucose,Whole Blood 116 mg/dL (70-110)
--- NOTE | 2024-01-09 11:37 | P.PN ---
Subjective Progress Note Date: 01/09/24 Principal diagnosis: Acute hypoxic respiratory failure with bilateral pneumonia secondary to MRSA On 01/04/2024, the patient is being seen for a follow-up. The patient was weane d off the mechanical ventilator and the patient was extubated to BiPAP and this morning the patient is on 6 L of O2 nasal cannula. Cough remains weak and the patient is unable to bring up much sputum. His early sputum analysis was positive for MRSA. Chest x-ray from today shows a right-sided pleural effusion and atelectatic changes lung base bilaterally. The patient seems to be calm and comfortable and awake and communicating. He is profoundly weak. He remains on norepinephrine which is running at 0.05 mcg/kg/min. Vasopressin was discontinued. IV fluids are currently at KVO. Remains on TPN for nutritional support. Sodium is at 142, potassium 3.6 BUN is 17 with a creatinine of 0.5. CBC still pending for now. The patient remains on Unasyn and vancomycin. Remains on TPN for nutritional support. He is currently off propofol. Ileostomy is functional and there is no evidence of any bleeding from the ileostomy or the enterocutaneous fistulas. On 01/05/2024, the patient is awake and alert and the patient is currently on a BiPAP is alternating between BiPAP pressures of 12/5 with an FiO2 40% and 40 disimpaction by nasal cannula. Chest x-ray showing atelectasis and possibly development of right-sided pleural effusion. The patient was given diuretics yesterday and the patient has diuresed adequately and he has developed hypokalemia. Fluid balance is -2.5 L over the past 24 hours. Urine output is more than 100 cc an hour. Ileostomy output is normal drop 3.7 L over the past 24 hours. Remains on TPN for nutritional support at a rate of 120 cc an hour. The white cell count of 4.3 with a hemoglobin of 8. Sodium is at 146, BUN 16 with a creatinine of 0.5. Potassium level is at 3.2. Serum bicarb is at 32. Awake and alert. Profoundly weak. Communicating. The patient remains on Unasyn and vancomycin. He is currently off pressors. Patient was seen today on 01/06/2024, remains in the ICU, on BiPAP 12/5/40% remains on antibiotics in the form of Unasyn and vancomycin remains on TPN at 120 cc/h. Chest x-ray continues to show atelectasis and small right-sided pleural effusion patient remains on diuretics, and he diuresed adequately. Continues to diurese, and continues to have good urine output. Continues to have significant ileostomy output. Patient remains on TPN for nutritional support. Labs showed WBC count 4.5 hemoglobin 7.9 basic metabolic profile is normal bicarb is 35 renal profile is normal Patient was evaluated on 01/07/2024, remains in the ICU, developed hypotension last night required going back on norepinephrine at 0.05 mcg/kg/min. Today the patient is doing well, his mean arterial pressure is in the 80s, hence I recommended tapering and possibly discontinuation of norepinephrine. Patient was on pressure support 12//50%, today he is on nasal cannula, does not seem to be in distress. He feels fine. His left groin arterial line has been removed. Continues to have significant drainage from his ostomy and fistula in the abdomen, and this is connected to a drainage tube. Patient remains on TPN at 1 of 25 cc/h. Chest x-ray continues to show some limited airspace disease in the right lower lobe, patient tells me today that he feels better than he felt yesterday in spite of requiring norepinephrine and I plan to discontinue WBC count is 7.0 hemoglobin is 8.9. Basic metabolic profile is normal renal profile is normal Was seen today on 01/08/2024 remains in the ICU on 2 L nasal cannula receiving TPN remains on antibiotics intermittently on BiPAP 12/5/40%. Patient is an overflow he needs to go to the floor once a bed becomes available, and we will plan to transfer the patient down to 3 S. Relatively asymptomatic, basic metabolic profile is normal BUN is 22 creatinine 0.47 chest x-ray showing improving perihilar and basilar infiltrates Patient was seen today at, remains in the ICU as an overflow, relatively asymptomatic laying in bed, remains on Unasyn and vancomycin, the plan is to eventually transition the patient to Augmentin and Zyvox when he goes home. Or goes to rehab. Patient had Klebsiella pneumonia in the sputum and he had MRSA, remains on TPN at 130 cc/h, intermittently on BiPAP 12/5/40%, patient seems to be comfortable presently on 2 L nasal cannula and not in distress. And he has no active symptoms labs today were reviewed, he had relatively normal basic metabolic profile and liver profile. BUN however is 2.5. Objective - Vital Signs Vital signs: Vital Signs Temp 97.1 F L 01/09/24 08:00 Pulse 76 01/09/24 11:30 Resp 18 01/09/24 08:00 BP 146/61 01/09/24 08:00 Pulse Ox 94 L 01/09/24 08:34 FiO2 40 01/09/24 04:14 Intake & Output 01/08/24 01/09/24 01/09/24 18:59 06:59 18:59 Intake Total 2254.5 960 1034.5 Output Total 900 2500 Balance 1354.5 -1540 1034.5 Weight 98.3 kg 98 kg Intake: IV 1220 960 Ampicillin-Sulbactam 3 gm 100 In Sodium Chloride 0.9% 100 ml @ 200 mls/hr IVPB Q6HR ANNIE Rx#:[id number] Invasive Line 4 20 Mvi, Adult No.4 with Vit 600 960 K 10 ml Trace (Conc-1Ml/ Dose) 1 ml Sodium Chloride 4Meq/ml Vial 50 meq Potassium Acetate 10 meq Calcium Gluconate 1 gm Magnesium Sulfate gm 1 gm Potassium Phosphate 15 mmol In Amino Acid 5%- D15w 1,000 ml @ 120 mls/ hr IV .BY DURATION ANNIE Rx #:[id number] Vancomycin 1,500 mg In 500 Sodium Chloride 0.9% 500 ml 500 ml @ 167 mls/hr IVPB Q16H ANNIE Rx#: [id number] Intake, IV Titration 1034.5 1034.5 Amount Sodium Chloride 4Meq/ml 1034.5 1034.5 Vial 50 meq Potassium Acetate 10 meq Calcium Gluconate 1 gm Magnesium Sulfate gm 1 gm Potassium Phosphate 15 mmol In Amino Acid 5%-D15w 1,000 ml @ 120 mls/hr IV .BY DURATION ANNIE Rx#: [id number] Output: Urine 900 1700 Male - External 100 Stool 800 Other: Voiding Method Indwelling Catheter External Catheter # Bowel Movements 1,100 ABP, PAP, CO, CI - Last Documented Arterial Blood Pressure 108/54 - Exam GENERAL EXAM: 48-year-old male,not in distress. On 2 L nasal cannula HEAD: Normocephalic and atraumatic EYES: Normal reaction of pupils, equal size. NOSE: Clear with pink turbinates. THROAT: No erythema or exudates. NECK: No masses, no JVD. CHEST: No chest wall deformity. Left subclavian double-lumen central line LUNGS: Equal air entry with no crackles, wheeze, rhonchi or dullness. CVS: S1 and S2 normal with no audible murmur, regular rhythm. No extra heart sounds ABDOMEN: Ileostomy with brown stool, enterocutaneous fistula noted with stool no evidence of any bleeding.. Bowel sounds present. Abdomen is soft and nontender. No organomegaly. Multiple surgical scars noted throughout the whole abdomen. SKIN: No rashes CENTRAL NERVOUS SYSTEM: Alert and oriented x 3 no gross focal deficit EXTREMITIES: Right BKA, left leg weakness and left foot drop, remaining distal pulses are weak and only found with Doppler. Extremities are showing diminished pulses bilaterally - Labs CBC & Chem 7: 01/07/24 05:23 01/09/24 06:17 Labs: Abnormal Lab Results - Last 24 Hours (Table) 01/08/24 01/08/24 01/08/24 Range/Units 11:10 17:50 21:01 BUN 22 H (9-20) mg/dL Creatinine 0.47 L (0.66-1.25) mg/dL Glucose 102 H (74-99) mg/dL POC Glucose (mg/dL) 112 H 119 H (70-110) mg/dL Albumin 2.5 L (3.5-5.0) g/dL 01/08/24 01/09/24 01/09/24 Range/Units 23:38 06:17 06:23 BUN 22 H (9-20) mg/dL Creatinine 0.48 L (0.66-1.25) mg/dL Glucose 116 H (74-99) mg/dL POC Glucose (mg/dL) 120 H 122 H (70-110) mg/dL Albumin 2.5 L (3.5-5.0) g/dL Assessment and Plan Assessment: Impression: Acute hypoxic respiratory failure, with bilateral pneumonia in the lung bases/atelectasis and the bronchial lavage that was done earlier was positive for MRSA. 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 Under control Recent history of ventilator dependent respiratory failure, secondary to pneumonia, microbiology from BAL positive for haemophilus influenzae History of DVT, previously on therapeutic dose of Lovenox, which is currently stopped History of Crohn's disease complicated by bowel perforation status post colectomy and diverting ileostomy. 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 Currently receiving TPN for nutritional support. 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
--- NOTE | 2024-01-09 15:03 | P.PN ---
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 Patient came back to the ER today because of debility and having issues with his TPN supplies. There has been some issues with primary care appointments and orders with TPN requiring signature from his PCP. At this time patient denies any chest pain or shortness of breath. There was no complaint of fever or chills. Denies any nausea, vomiting, abdominal pain. Denies any lightheaded dizziness. Initial lab work done in the ER showed W6.3, hemoglobin 20.7, platelet count 264, sodium 130, potassium 4.9, BUN 20, creatinine 0.41, phosphorus 2.4, alk phos 133, total protein 9 Patient admitted to internal medicine service 12/26. Patient seen and examined. Complaining of pain in his right hand. D enies any shortness of breath /12. Patient seen and examined. Potassium level this morning was 5.5, patient was getting potassium supplementation, will DC it for now. 12/28. Patient seen and examined. Patient had a rapid response called overnight for low blood pressure, patient was given 2-1/2 L of fluid. Labs on this morning showed WBC 10.4, hemoglobin 14.4, platelet count 420, sodium 124, p otassium 5.5, BUN 104, creatinine 1.59. Ostomy output is blood-tinged. 12/30/2023 Patient continues in the ICU requiring low-dose pressor support and currently being weaned. Multiple consultations following including general surgery and did a washout of the abdomen early this morning along with cauterizing and placing sutures to an area near the ostomy that had been bleeding. Hemoglobin is stable and is being closely monitored with hemoglobins every 6 hours. Transfuse if 7 or less. Patient to continue with strict n.p.o. and is maintained on TPN. Blood sugars have been more elevated and will add long- acting and adjust insulins accordingly 12/31/2023 Patient continues in the ICU with multiple consultations following. Patient requiring increased oxygen demands currently on 6 L and transition to Airvo and pulmonary educational administration teacher following planning on bronchoscopy today. Patient is a febrile although continues with an elevated white count and hemoglobin is stable above 8 with no active bleeding noted. Patient is n.p.o. maintained on TPN at this time. Blood sugars continue to be in the 200s consistently and will adjust long-acting and continue sliding scale. 01/01/2024 patient is seen in follow up today and experienced increasing respiratory demands and became more obtunded and unresponsive requiring mechanical ventilation. Patient FiO2 is 50% with a PEEP of 8 and is status post bronchoscopy yesterday. Patient maintained on Levophed and vasopressin along with propofol. White count is elevated and patient is continued on IV antibiotics in the form of vancomycin and Zosyn. Cultures have been sent and pending at this time. Will consult infectious disease and appreciate input and recommendations. Hemoglobin is stable at 7.8 with no active bleeding noted. Potassium 2.7 and magnesium 1.5 along with phosphorus 0.9 and being replaced per protocol. Kidney functions remained stable at this time other than a chloride of 115 and sodium is 142. Patient is also being started on Eraxis. Recommend adjusting TPN per dietary and pharmacy. Overall prognosis remains extremely guarded at this time. 01/02/2024 Patient is evaluated in the intensive care unit he is currently intubated however he is awake alert oriented with eye moving and able to respond with nods to simple questions. Pressor support in the process of being weaned her blood pressure 144/65. Mechanical ventilator with an FiO2 of 50% and a PEEP of . Continues on TPN. Rectal tube in place continues with loose stools. C.Dif was negative. Cultures currently pending. Remains on Antibiotics with IV Zosyn, IV vancomycin as well as IV anidulafungin. Procalcitonin level was mildly elevated at 1.38. X-ray this morning reveals basilar atelectasis on the left as well as right midlung. Has white blood cell count is down to 10.7 today hemoglobin of 8.1. Sodium level is 142, potassium 2.6, BUN of 43 creatinine of 0.68. Magnesium 1.7. Blood glucose in the 150s continues on Levemir twice a day for this. 01/03/2024 Patient is seen in follow-up today remains intubated and discussing possible e xtubation today with pulmonary following scheduled to undergo bronchoscopy as well. Patient is maintained on antibiotics with infectious disease following while awaiting urine cultures as well as sputum culture showing MRSA. Preliminary urine is gram-negative and will continue current antibiotic regimen. Patient remains on low-dose pressor support and attempting to wean. TPN continues and tolerating. Continue to monitor Accu-Cheks and continue current regimen although blood sugars have been a little lower today. Recommend Accu- Cheks before meals and at bedtime and 2 AM. Patient is alert and responding on exam as propofol is off. Patient extremely weak and lethargic and falls asleep during conversation. Patient also appears frustrated as he is unable to communicate due to intubation 01/03. Patient seen and examined. 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 Patient received IV Lasix this morning. No bleeding around the ileostomy site. 01/04. Patient examined. Potassium placement ordered. States he feels better compared to yesterday. Denies any chest pain 01/06/2024 Patient is seen in follow-up continues in the ICU and is currently maintained on nasal cannula and tolerating thus far. Patient continues on TPN with multiple consultations following. Awaiting finalized cultures on repeat sputum culture from most recent bronchoscopy. Patient is afebrile and white count remains normal. Patient is continued on IV antibiotics in the form of Unasyn as well as vancomycin. Patient also continues on low-dose norepinephrine and is being weaned. 01/07/2024 Patient is seen in follow-up today and remains in the ICU and currently has been weaned off of Levophed maintaining blood pressures. Planning for transferring out of the ICU if blood pressure remains stable. Patient is afebrile and continued on IV antibiotics and will continue the same with infectious disease following. White count has normalized and patient is afebrile. Patient continues on TPN and will continue at this time. Patient also continues on 2 L via nasal cannula as well as titrating and weaning as tolerated. Patient using BiPAP intermittently as needed as well. Chest x-ray today showed a stable chest. 01/08/2024 Patient is seen in follow-up today remains off pressor support and awaiting a bed on 3 S. is a downgrade from ICU. Multiple consultations following and awaiting PT/OT therapy evaluation as patient will likely need ECF for continued strength and mobility. Currently working on discharge planning regarding TPN as patient's primary care provider Dr. Ivey has reported she needs to see the patient prior to reinitiating any further orders and previous surgeon from [facility] has refused to sign any future orders regarding TPN. Social work following and have also discussed possible visiting physician to come to the home as patient is mostly bedbound and has supportive care at the home per family. Patient is afebrile with no reports of chest pain or shortness of breath. 01/09/2024 Patient is seen and evaluated in follow-up today and is being moved out of the ICU blood pressure has been stabilized and patient remains off pressor support. Patient evaluated by PT/OT therapy and per social work patient is at baseline and would not qualify for ECF. Patient has extensive wounds of the abdomen along with ostomy care as a BKA and mostly bedbound making it extremely difficult to follow-up at doctors office appointments and has been in and out of the hospital multiple times this last year. Currently attempting to work with primary care provider Dr. Ivey's office as patient is maintained on TPN al though has not been seen and evaluated in her office since February 2023. Patient would need to have an appointment with the provider in the office to reestablish and continue TPN orders. Home care is being arranged and will discuss with case management/social work regarding other options. REVIEW OF SYSTEMS: CONSTITUTIONAL: No fever, no malaise,. CARDIOVASCULAR: No chest pain, no palpitations, no syncope. PULMONARY: No shortness of breath, no cough, GASTROINTESTINAL: No diarrhea, no nausea, no vomiting, no abdominal pain. NEUROLOGICAL: No headaches, reports generalized weakness PHYSICAL EXAMINATION: GENERAL: The patient is alert and oriented x3, ill looking, elderly appearing, obese HEENT: Pupils are round and equally reacting to light. EOMI. No scleral icterus. No conjunctival pallor. Normocephalic, atraumatic. No pharyngeal erythema. No thyromegaly. CARDIOVASCULAR: S1 and S2 present. No murmurs, rubs, or gallops. PULMONARY: Diminished breath sound the bases bilaterally with some scattered rhonchi and bronchial congestion noted. ABDOMEN: Soft, nontender, nondistended,. Ostomy seen MUSCULOSKELETAL: No joint swelling or deformity. Right BKA EXTREMITIES: No cyanosis, clubbing, or pedal edema. NEUROLOGICAL: Gross neurological examination did not reveal any focal deficits. Diffusely weak SKIN: No rashes. Pale Assessment: Hypotension with hypotensive shock requiring pressor support likely secondary to acute GI bleed and hypovolemia Acute GI bleed from the ostomy secondary to an abdominal wall extravasation near the ostomy requiring sutures and cauterization 12/30/2023, resolved Acute blood loss anemia secondary to above acute kidney injury secondary to hypotension acute urinary tract infection, secondary to indwelling Medina catheter, while inpatient. 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 Leukocytosis, improved Moderate protein calorie malnutrition maintained on TPN Hyperkalemia, improved status post Lokelma Hyponatremia history of Crohn disease complicated with bowel perforation requiring ileostomy, also has 2 fistula in his anterior abdominal Wall, patient also has left upper chest portal to receive right lower extremity 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 Continue TPN with dietary consult. Working with PCPs office to reinitiate orders and write for orders regarding TPN, concern as patient has not been seen since February 2023 and will be required to go to the office before reinitiating TPN and home care orders. Patient is a BKA with multiple significant comorbidities and mostly bedbound making it extremely difficult to follow-up and go to doctors offices for appointments. Discussed with family about possible visiting physicians although they report his insurance is not excepted for this. Will discuss further with case management/social work regarding other options regarding outpatient orders. Pulmonary following recommend to continue with current regimen and patient is status post bronchoscopy with repeat bronchoscopy culture showing Klebsiella pneumonia and Bella glabrata from the aspirate on the left. Repeat blood culture negative Continue to monitor blood sugars closely and noted patient has had decreased blood sugar readings and will adjust insulins and continue with sliding scale a nd decrease long-acting for now Social work following and evaluated by PT/OT therapy reporting patient is at his baseline and would likely not qualify for ECF.. PCP Dr. Ivey would like to see the patient and reevaluate prior to reinitiating any TPN orders and [facility] surgeon is refusing to further write for TPN. Due to multiple complex medical issues, overall prognosis is guarded The impression and plan of care has been dictated by Alyssa Hernandez, Nurse Practitioner as directed. Dr. Vicente MD I have performed a history and examination and MDM of this patient, discussed the same with the dictator, and agree with the dictator's assessment and plan as written ,documented as a scribe. Based on total visit time, I have performed more than 50% of the visit. Objective - Vital Signs Vital signs: Vital Signs Temp 98.8 F 01/09/24 04:00 Pulse 87 01/09/24 08:44 Resp 15 01/09/24 04:00 BP 146/61 01/09/24 04:00 Pulse Ox 94 L 01/09/24 08:34 FiO2 40 01/09/24 04:14 Intake & Output 01/08/24 01/09/24 01/09/24 18:59 06:59 18:59 Intake Total 2254.5 960 Output Total 900 2500 Balance 1354.5 -1540 Weight 98.3 kg 98 kg Intake: IV 1220 960 Ampicillin-Sulbactam 3 gm 100 In Sodium Chloride 0.9% 100 ml @ 200 mls/hr IVPB Q6HR ANN[facility] Rx#:[id number] Invasive Line 4 20 Mvi, Adult No.4 with Vit 600 960 K 10 ml Trace (Conc-1Ml/ Dose) 1 ml Sodium Chloride 4Meq/ml Vial 50 meq Potassium Acetate 10 meq Calcium Gluconate 1 gm Magnesium Sulfate gm 1 gm Potassium Phosphate 15 mmol In Amino Acid 5%- D15w 1,000 ml @ 120 mls/ hr IV .BY DURATION ANNIE Rx #:[id number] Vancomycin 1,500 mg In 500 Sodium Chloride 0.9% 500 ml 500 ml @ 167 mls/hr IVPB Q16H [facility] Rx#: [id number] Intake, IV Titration 1034.5 Amount Sodium Chloride 4Meq/ml 1034.5 Vial 50 meq Potassium Acetate 10 meq Calcium Gluconate 1 gm Magnesium Sulfate gm 1 gm Potassium Phosphate 15 mmol In Amino Acid 5%-D15w 1,000 ml @ 120 mls/hr IV .BY DURATION [facility] Rx#: [id number] Output: Urine 900 1700 Male - External 100 Stool 800 Other: Voiding Method Indwelling Catheter # Bowel Movements 1,100 ABP, PAP, CO, CI - Last Documented Arterial Blood Pressure 108/54 - Labs CBC & Chem 7: 01/07/24 05:23 01/09/24 06:17 Labs: Abnormal Lab Results - Last 24 Hours (Table) 01/08/24 01/08/24 01/08/24 Range/Units 11:10 17:50 21:01 BUN 22 H (9-20) mg/dL Creatinine 0.47 L (0.66-1.25) mg/dL Glucose 102 H (74-99) mg/dL POC Glucose (mg/dL) 112 H 119 H (70-110) mg/dL Albumin 2.5 L (3.5-5.0) g/dL 01/08/24 01/09/24 01/09/24 Range/Units 23:38 06:17 06:23 BUN 22 H (9-20) mg/dL Creatinine 0.48 L (0.66-1.25) mg/dL Glucose 116 H (74-99) mg/dL POC Glucose (mg/dL) 120 H 122 H (70-110) mg/dL Albumin 2.5 L (3.5-5.0) g/dL
[2024-01-09] MEDS: FAT EMULSION 20% 250 ML IV SCH (15:30)
[2024-01-09 18:13] LABS: Glucose,Whole Blood 106 mg/dL (70-110)
[2024-01-09] MEDS: HYDROmorphone 2 MG/ML 1 ML SYRINGE IVP PRN (21:26)
[2024-01-09] MEDS: 1: MVI, ADULT NO.4 WITH VIT K 10 ML, TRACE (CONC-1ML/DOSE) 1 ML, SODIUM CHLORIDE 4MEQ/ML IV SCH (21:48)
--- NOTE | 2024-01-09 21:51 | P.PN ---
Subjective Progress Note Date: 01/09/24 Principal diagnosis: Reason for follow-up is sepsis UTI/pneumonia Patient is a 48-year-old male with a past medical history difficult for CVA TIA DVT did have a history of Crohn's disease with bowel perforation requiring ileostomy and also have a enterocutaneous fistula patient initially presentation to the hospital was weakness not feeling well subsequent did have w orsening of the respiratory status requiring intubation did have a fever concerning for possible pneumonia. On today's evaluation that is 01/09/2024,the patient denies any fever or any chills, patient is breathing comfortably on 2 L nasal cannula oxygen, the patient denies chest pain shortness of breath and no worsening cough, patient denies abdominal pain, no nausea vomiting he did have good output through his ileostomy. Patient did have a creatinine 0.48 white count was 7.02 days ago not repeated since then Objective - Vital Signs Vital signs: Vital Signs Temp 98.8 F 01/09/24 04:00 Pulse 89 01/09/24 08:34 Resp 15 01/09/24 04:00 BP 146/61 01/09/24 04:00 Pulse Ox 94 L 01/09/24 08:34 FiO2 40 01/09/24 04:14 Intake & Output 01/08/24 01/09/24 01/09/24 18:59 06:59 18:59 Intake Total 2254.5 960 Output Total 900 2500 Balance 1354.5 -1540 Weight 98.3 kg 98 kg Intake: IV 1220 960 Ampicillin-Sulbactam 3 gm 100 In Sodium Chloride 0.9% 100 ml @ 200 mls/hr IVPB Q6HR [facility] Rx#:[id number] Invasive Line 4 20 Mvi, Adult No.4 with Vit 600 960 K 10 ml Trace (Conc-1Ml/ Dose) 1 ml Sodium Chloride 4Meq/ml Vial 50 meq Potassium Acetate 10 meq Calcium Gluconate 1 gm Magnesium Sulfate gm 1 gm Potassium Phosphate 15 mmol In Amino Acid 5%- D15w 1,000 ml @ 120 mls/ hr IV .BY DURATION [facility] Rx #:[id number] Vancomycin 1,500 mg In 500 Sodium Chloride 0.9% 500 ml 500 ml @ 167 mls/hr IVPB Q16H [facility] Rx#: [id number] Intake, IV Titration 1034.5 Amount Sodium Chloride 4Meq/ml 1034.5 Vial 50 meq Potassium Acetate 10 meq Calcium Gluconate 1 gm Magnesium Sulfate gm 1 gm Potassium Phosphate 15 mmol In Amino Acid 5%-D15w 1,000 ml @ 120 mls/hr IV .BY DURATION [facility] Rx#: [id number] Output: Urine 900 1700 Male - External 100 Stool 800 Other: Voiding Method Indwelling Catheter # Bowel Movements 1,100 ABP, PAP, CO, CI - Last Documented Arterial Blood Pressure 108/54 - Exam GENERAL DESCRIPTION: Middle-age male lying in bed in no distress RESPIRATORY SYSTEM: Unlabored breathing , decreased breath sounds at bases HEART: S1 S2 regular rate and rhythm , ABDOMEN: Soft , no tenderness EXTREMITIES: Diffuse swelling to the leg no redness, 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 - Labs CBC & Chem 7: 01/07/24 05:23 01/09/24 06:17 Labs: Abnormal Lab Results - Last 24 Hours (Table) 01/08/24 01/08/24 01/08/24 Range/Units 11:10 17:50 21:01 BUN 22 H (9-20) mg/dL Creatinine 0.47 L (0.66-1.25) mg/dL Glucose 102 H (74-99) mg/dL POC Glucose (mg/dL) 112 H 119 H (70-110) mg/dL Albumin 2.5 L (3.5-5.0) g/dL 01/08/24 01/09/24 01/09/24 Range/Units 23:38 06:17 06:23 BUN 22 H (9-20) mg/dL Creatinine 0.48 L (0.66-1.25) mg/dL Glucose 116 H (74-99) mg/dL POC Glucose (mg/dL) 120 H 122 H (70-110) mg/dL Albumin 2.5 L (3.5-5.0) g/dL Assessment and Plan (1) Pneumonia Current Visit: Yes Status: Acute Code(s): J18.9 - PNEUMONIA, UNSPECIFIED ORGANISM SNOMED Code(s): 606269526 (2) Sepsis Current Visit: No Status: Acute Code(s): A41.9 - SEPSIS, UNSPECIFIED ORGANISM SNOMED Code(s): 19497904 Plan: 1patient with sepsis/septic shock in this patient who did have a fever elevated white count high clinical suspicion of possible left lower lobe pneumonia in this patient who did have multiple comorbidities and complicated intra-abdominal history with history of bowel perforation and did have ileostomy and enterocutaneous fistula keeping in mind the patient has been in and out of the hospital we will need to cover for the resistant gram-positive as well as gram- negative pathogen 2-patient bronchial culture grew MRSA urine is growing Klebsiella that is sens itive to Unasyn, repeat bronchoscopy cultures are growing Klebsiella and Bella glabrata 3patient did have resolution of his fever and the patient white count normalized 4plan is to continue with vancomycin and Unasyn while inpatient however will transition to Augmentin and Zyvox on DC and no need for IV antibiotic on discharge discussed with the shelter case manager Dictation was produced using [employer] dictation software. please excuse any grammatical, word or spelling errors. Time with Patient: Less than 30
[2024-01-10 00:31] LABS: Glucose,Whole Blood 108 mg/dL (70-110)
[2024-01-10 04:04] LABS: ALT 15 U/L (4-49); AST 25 U/L (17-59); African American GFR (CKD) >90 (>60 ml/min/1.73 sqM); Albumin 2.5 g/dL (3.5-5.0); Albumin/Globulin Ratio 0.6; Alkaline Phosphatase 99 U/L (38-126); Anion Gap 1 mmol/L; Blood Urea Nitrogen 18 mg/dL (9-20); Calcium 8.2 mg/dL (8.4-10.2); Carbon Dioxide 28 mmol/L (22-30); Chloride 106 mmol/L (98-107); Globulin 4.1 g/dL; Glucose 109 mg/dL (74-99); Magnesium 1.9 mg/dL (1.6-2.3); Non-African American GFR(CKD) >90 (>60 ml/min/1.73 sqM); Phosphorus 3.4 mg/dL (2.5-4.5); Sodium 135 mmol/L (137-145); Total Bilirubin 0.5 mg/dL (0.2-1.3); Total Protein 6.6 g/dL (6.3-8.2)
[2024-01-10 06:52] LABS: Glucose,Whole Blood 109 mg/dL (70-110)
[2024-01-10] MEDS: FERROUS SULFATE 325 MG TAB PO SCH (10:11)
[2024-01-10 11:34] LABS: Glucose,Whole Blood 107 mg/dL (70-110)
--- NOTE | 2024-01-10 14:06 | P.PN ---
Subjective Progress Note Date: 01/10/24 On 01/04/2024, the patient is being seen for a follow-up. The patient was weaned off the mechanical ventilator and the patient was extubated to BiPAP and this morning the patient is on 6 L of O2 nasal cannula. Cough remains weak and the patient is unable to bring up much sputum. His early sputum analysis was positive for MRSA. Chest x-ray from today shows a right-sided pleural effusion and atelectatic changes lung base bilaterally. The patient seems to be calm and comfortable and awake and communicating. He is profoundly weak. He remains on norepinephrine which is running at 0.05 mcg/kg/min. Vasopressin was discontinued. IV fluids are currently at KVO. Remains on TPN for nutritional support. Sodium is at 142, potassium 3.6 BUN is 17 with a creatinine of 0.5. CBC still pending for now. The patient remains on Unasyn and vancomycin. Remains on TPN for nutritional support. He is currently off propofol. Ileostomy is functional and there is no evidence of any bleeding from the ileo stomy or the enterocutaneous fistulas. On 01/05/2024, the patient is awake and alert and the patient is currently on a BiPAP is alternating between BiPAP pressures of 12/5 with an FiO2 40% and 40 dis impaction by nasal cannula. Chest x-ray showing atelectasis and possibly development of right-sided pleural effusion. The patient was given diuretics yesterday and the patient has diuresed adequately and he has developed hypokalemia. Fluid balance is -2.5 L over the past 24 hours. Urine output is more than 100 cc an hour. Ileostomy output is normal drop 3.7 L over the past 24 hours. Remains on TPN for nutritional support at a rate of 120 cc an hour. The white cell count of 4.3 with a hemoglobin of 8. Sodium is at 146, BUN 16 with a creatinine of 0.5. Potassium level is at 3.2. Serum bicarb is at 32. Awake and alert. Profoundly weak. Communicating. The patient remains on Unasyn and vancomycin. He is currently off pressors. Patient was seen today on 01/06/2024, remains in the ICU, on BiPAP 12/5/40% remains on antibiotics in the form of Unasyn and vancomycin remains on TPN at 120 cc/h. Chest x-ray continues to show atelectasis and small right-sided pleural effusion patient remains on diuretics, and he diuresed adequately. Continues to diurese, and continues to have good urine output. Continues to have significant ileostomy output. Patient remains on TPN for nutritional support. Labs showed WBC count 4.5 hemoglobin 7.9 basic metabolic profile is normal bicarb is 35 renal profile is normal Patient was evaluated on 01/07/2024, remains in the ICU, developed hypotension last night required going back on norepinephrine at 0.05 mcg/kg/min. Today the patient is doing well, his mean arterial pressure is in the 80s, hence I recommended tapering and possibly discontinuation of norepinephrine. Patient was on pressure support 12//50%, today he is on nasal cannula, does not seem to be in distress. He feels fine. His left groin arterial line has been removed. Continues to have significant drainage from his ostomy and fistula in the abdomen, and this is connected to a drainage tube. Patient remains on TPN at 1 of 25 cc/h. Chest x-ray continues to show some limited airspace disease in the right lower lobe, patient tells me today that he feels better than he felt yesterday in spite of requiring norepinephrine and I plan to discontinue WBC count is 7.0 hemoglobin is 8.9. Basic metabolic profile is normal renal profile is normal Was seen today on 01/08/2024 remains in the ICU on 2 L nasal cannula receiving TPN remains on antibiotics intermittently on BiPAP 12/5/40%. Patient is an overflow he needs to go to the floor once a bed becomes available, and we will plan to transfer the patient down to 3 S. Relatively asymptomatic, basic metabolic profile is normal BUN is 22 creatinine 0.47 chest x-ray showing improving perihilar and basilar infiltrates Patient was seen today at, remains in the ICU as an overflow, relatively asymptomatic laying in bed, remains on Unasyn and vancomycin, the plan is to eventually transition the patient to Augmentin and Zyvox when he goes home. Or goes to rehab. Patient had Klebsiella pneumonia in the sputum and he had MRSA, remains on TPN at 130 cc/h, intermittently on BiPAP 12/5/40%, patient seems to be comfortable presently on 2 L nasal cannula and not in distress. And he has no active symptoms labs today were reviewed, he had relatively normal basic metabolic profile and liver profile. BUN however is 2.5. The patient is seen today January 10, 2024 in follow-up on the regular medical floor. He was transferred out of the intensive care unit yesterday. He is currently resting comfortably in bed. Awake and alert in no acute distress. Is maintaining good O2 saturations in the 90s on 2 L/min per nasal cannula. He is afebrile. Hemodynamically stable. Sodium 135. Potassium 4.0. Bicarb 28. BUN 18. Creatinine 0.51. Glucose 109. He remains on Unasyn and vancomycin. Continued on lipids and TPN at 83 mL/h. Lovenox for DVT prophylaxis. Bronchioloalveolar lavage from 12/31/2023 was positive for MRSA, Klebsiella pneumoniae, Bella glabrata, urine was positive for Klebsiella pneumoniae. Objective - Vital Signs Vital signs: Vital Signs Temp 99.2 F 01/10/24 01:07 Pulse 80 01/10/24 11:32 Resp 18 01/10/24 01:07 BP 111/66 01/10/24 01:07 Pulse Ox 96 01/10/24 01:07 FiO2 40 01/10/24 03:18 Intake & Output 01/09/24 01/10/24 01/10/24 18:59 06:59 18:59 Intake Total 1034.5 Output Total 2950 1700 Balance -1915.5 -1700 Weight 98 kg 98 kg Intake: Intake, IV Titration 1034.5 Amount Sodium Chloride 4Meq/ml 1034.5 Vial 50 meq Potassium Acetate 10 meq Calcium Gluconate 1 gm Magnesium Sulfate gm 1 gm Potassium Phosphate 15 mmol In Amino Acid 5%-D15w 1,000 ml @ 120 mls/hr IV .BY DURATION [facility] [place] Rx#: [id number] Output: Drainage 500 Right Abdomen 500 Urine 1450 800 Stool 1000 900 Other: Voiding Method External Catheter External Catheter External Catheter ABP, PAP, CO, CI - Last Documented Arterial Blood Pressure 108/54 - Exam GENERAL EXAM: Wake, alert very pleasant 48-year-old male, in no acute distress. On 2 L nasal cannula HEAD: Normocephalic and atraumatic EYES: Normal reaction of pupils, equal size. NOSE: Clear with pink turbinates. THROAT: No erythema or exudates. NECK: No masses, no JVD. CHEST: No chest wall deformity. Left subclavian double-lumen central line LUNGS: Equal air entry with no crackles, wheeze, rhonchi or dullness. CVS: S1 and S2 normal with no audible murmur, regular rhythm. No extra heart sounds ABDOMEN: Ileostomy with brown stool, enterocutaneous fistula noted with stool no evidence of any bleeding. Multiple surgical scars noted throughout the whole abdomen. SKIN: No rashes CENTRAL NERVOUS SYSTEM: Alert and oriented x 3 no gross focal deficit EXTREMITIES: Right BKA, left leg weakness and left foot drop, remaining distal pulses are weak and only found with Doppler. Extremities are showing diminished pulses bilaterally - Labs CBC & Chem 7: 01/07/24 05:23 01/10/24 03:28 Labs: Abnormal Lab Results - Last 24 Hours (Table) 01/10/24 Range/Units 03:28 Sodium 135 L (137-145) mmol/L Creatinine 0.51 L (0.66-1.25) mg/dL Glucose 109 H (74-99) mg/dL Calcium 8.2 L (8.4-10.2) mg/dL Albumin 2.5 L (3.5-5.0) g/dL Microbiology - Last 24 Hours (Table) 12/31/23 14:00 Acid Fast Bacilli Smear - Preliminary Bronchoalviolar Lavage - Left Acid Fast Bacilli Culture - Preliminary Assessment and Plan Assessment: Acute hypoxic respiratory failure, with bilateral pneumonia in the lung bases/atelectasis and the bronchial lavage that was done earlier was positive for MRSA. 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 Under control Recent history of ventilator dependent respiratory failure, secondary to pne umonia, microbiology from BAL positive for haemophilus influenzae History of DVT, previously on therapeutic dose of Lovenox, which is currently stopped History of Crohn's disease complicated by bowel perforation status post colectomy and diverting ileostomy. 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 Currently receiving TPN for nutritional support. 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 Number of minutes spent on the visit: 10 Dictation was produced using [employer] dictation software. Please excuse any grammatical, word or spelling errors.
[2024-01-10 16:44] LABS: Glucose,Whole Blood 116 mg/dL (70-110)
[2024-01-10] MEDS: 1: MVI, ADULT NO.4 WITH VIT K 10 ML, TRACE (CONC-1ML/DOSE) 1 ML, SODIUM CHLORIDE 4MEQ/ML IV SCH (23:34)
--- NOTE | 2024-01-10 23:40 | P.PN ---
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 Patient came back to the ER today because of debility and having issues with his TPN supplies. There has been some issues with primary care appointments and orders with TPN requiring signature from his PCP. At this time patient denies any chest pain or shortness of breath. There was no complaint of fever or chills. Denies any nausea, vomiting, abdominal pain. Denies any lightheaded dizziness. Initial lab work done in the ER showed W6.3, hemoglobin 20.7, platelet count 264, sodium 130, potassium 4.9, BUN 20, creatinine 0.41, phosphorus 2.4, alk phos 133, total protein 9 Patient admitted to internal medicine service 12/26. Patient seen and examined. Complaining of pain in his right hand. D enies any shortness of breath /12. Patient seen and examined. Potassium level this morning was 5.5, patient was getting potassium supplementation, will DC it for now. 12/28. Patient seen and examined. Patient had a rapid response called overnight for low blood pressure, patient was given 2-1/2 L of fluid. Labs on this morning showed WBC 10.4, hemoglobin 14.4, platelet count 420, sodium 124, p otassium 5.5, BUN 104, creatinine 1.59. Ostomy output is blood-tinged. 12/30/2023 Patient continues in the ICU requiring low-dose pressor support and currently being weaned. Multiple consultations following including general surgery and did a washout of the abdomen early this morning along with cauterizing and placing sutures to an area near the ostomy that had been bleeding. Hemoglobin is stable and is being closely monitored with hemoglobins every 6 hours. Transfuse if 7 or less. Patient to continue with strict n.p.o. and is maintained on TPN. Blood sugars have been more elevated and will add long- acting and adjust insulins accordingly 12/31/2023 Patient continues in the ICU with multiple consultations following. Patient requiring increased oxygen demands currently on 6 L and transition to Airvo and pulmonary electrician outside following planning on bronchoscopy today. Patient is a febrile although continues with an elevated white count and hemoglobin is stable above 8 with no active bleeding noted. Patient is n.p.o. maintained on TPN at this time. Blood sugars continue to be in the 200s consistently and will adjust long-acting and continue sliding scale. 01/01/2024 patient is seen in follow up today and experienced increasing respiratory demands and became more obtunded and unresponsive requiring mechanical ventilation. Patient FiO2 is 50% with a PEEP of 8 and is status post bronchoscopy yesterday. Patient maintained on Levophed and vasopressin along with propofol. White count is elevated and patient is continued on IV antibiotics in the form of vancomycin and Zosyn. Cultures have been sent and pending at this time. Will consult infectious disease and appreciate input and recommendations. Hemoglobin is stable at 7.8 with no active bleeding noted. Potassium 2.7 and magnesium 1.5 along with phosphorus 0.9 and being replaced per protocol. Kidney functions remained stable at this time other than a chloride of 115 and sodium is 142. Patient is also being started on Eraxis. Recommend adjusting TPN per dietary and pharmacy. Overall prognosis remains extremely guarded at this time. 01/02/2024 Patient is evaluated in the intensive care unit he is currently intubated however he is awake alert oriented with eye moving and able to respond with nods to simple questions. Pressor support in the process of being weaned her blood pressure 144/65. Mechanical ventilator with an FiO2 of 50% and a PEEP of . Continues on TPN. Rectal tube in place continues with loose stools. C.Dif was negative. Cultures currently pending. Remains on Antibiotics with IV Zosyn, IV vancomycin as well as IV anidulafungin. Procalcitonin level was mildly elevated at 1.38. X-ray this morning reveals basilar atelectasis on the left as well as right midlung. Has white blood cell count is down to 10.7 today hemoglobin of 8.1. Sodium level is 142, potassium 2.6, BUN of 43 creatinine of 0.68. Magnesium 1.7. Blood glucose in the 150s continues on Levemir twice a day for this. 01/03/2024 Patient is seen in follow-up today remains intubated and discussing possible e xtubation today with pulmonary following scheduled to undergo bronchoscopy as well. Patient is maintained on antibiotics with infectious disease following while awaiting urine cultures as well as sputum culture showing MRSA. Preliminary urine is gram-negative and will continue current antibiotic regimen. Patient remains on low-dose pressor support and attempting to wean. TPN continues and tolerating. Continue to monitor Accu-Cheks and continue current regimen although blood sugars have been a little lower today. Recommend Accu- Cheks before meals and at bedtime and 2 AM. Patient is alert and responding on exam as propofol is off. Patient extremely weak and lethargic and falls asleep during conversation. Patient also appears frustrated as he is unable to communicate due to intubation 01/03. Patient seen and examined. 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 Patient received IV Lasix this morning. No bleeding around the ileostomy site. 01/04. Patient examined. Potassium placement ordered. States he feels better compared to yesterday. Denies any chest pain 01/06/2024 Patient is seen in follow-up continues in the ICU and is currently maintained on nasal cannula and tolerating thus far. Patient continues on TPN with multiple consultations following. Awaiting finalized cultures on repeat sputum culture from most recent bronchoscopy. Patient is afebrile and white count remains normal. Patient is continued on IV antibiotics in the form of Unasyn as well as vancomycin. Patient also continues on low-dose norepinephrine and is being weaned. 01/07/2024 Patient is seen in follow-up today and remains in the ICU and currently has been weaned off of Levophed maintaining blood pressures. Planning for transferring out of the ICU if blood pressure remains stable. Patient is afebrile and continued on IV antibiotics and will continue the same with infectious disease following. White count has normalized and patient is afebrile. Patient continues on TPN and will continue at this time. Patient also continues on 2 L via nasal cannula as well as titrating and weaning as tolerated. Patient using BiPAP intermittently as needed as well. Chest x-ray today showed a stable chest. 01/08/2024 Patient is seen in follow-up today remains off pressor support and awaiting a bed on 3 S. is a downgrade from ICU. Multiple consultations following and awaiting PT/OT therapy evaluation as patient will likely need ECF for continued strength and mobility. Currently working on discharge planning regarding TPN as patient's primary care provider Dr. Ivey has reported she needs to see the patient prior to reinitiating any further orders and previous surgeon from [facility] has refused to sign any future orders regarding TPN. Social work following and have also discussed possible visiting physician to come to the home as patient is mostly bedbound and has supportive care at the home per family. Patient is afebrile with no reports of chest pain or shortness of breath. 01/09/2024 Patient is seen and evaluated in follow-up today and is being moved out of the ICU blood pressure has been stabilized and patient remains off pressor support. Patient evaluated by PT/OT therapy and per social work patient is at baseline and would not qualify for ECF. Patient has extensive wounds of the abdomen along with ostomy care as a BKA and mostly bedbound making it extremely difficult to follow-up at doctors office appointments and has been in and out of the hospital multiple times this last year. Currently attempting to work with primary care provider Dr. Ivey's office as patient is maintained on TPN al though has not been seen and evaluated in her office since February 2023. Patient would need to have an appointment with the provider in the office to reestablish and continue TPN orders. Home care is being arranged and will discuss with case management/social work regarding other options. 01/10/2024 Patient is seen in follow-up today with no acute overnight issues. Multiple consultations following and patient is maintained on TPN. Respiratory status improved and pulmonary has cleared the patient is once cleared by other consultations for discharge home. Patient will continue current regimen for now and will discuss with infectious disease with likely oral antibiotics on discharge. Discussed with Dr. Ivey's office regarding social issues and transportation with making it to appointments and they have agreed to conduct a telehealth visit hopefully for Saturday to continue with TPN orders as well as home care orders. Patient will also need to physically be present for an appointment in the office with Dr. Ivey before February 16, 2024 in order to remain a patient of hers. This was expressed to patient along with family members. REVIEW OF SYSTEMS: CONSTITUTIONAL: No fever, no malaise,. CARDIOVASCULAR: No chest pain, no palpitations, no syncope. PULMONARY: No shortness of breath, no cough, GASTROINTESTINAL: No diarrhea, no nausea, no vomiting, no abdominal pain. NEUROLOGICAL: No headaches, reports generalized weakness PHYSICAL EXAMINATION: GENERAL: The patient is alert and oriented x3, ill looking, elderly appearing, obese HEENT: Pupils are round and equally reacting to light. EOMI. No scleral icterus. No conjunctival pallor. Normocephalic, atraumatic. No pharyngeal erythema. No thyromegaly. CARDIOVASCULAR: S1 and S2 present. No murmurs, rubs, or gallops. PULMONARY: Diminished breath sound the bases bilaterally with some scattered rhonchi and bronchial congestion noted. ABDOMEN: Soft, nontender, nondistended,. Ostomy seen MUSCULOSKELETAL: No joint swelling or deformity. Right BKA EXTREMITIES: No cyanosis, clubbing, or pedal edema. NEUROLOGICAL: Gross neurological examination did not reveal any focal deficits. Diffusely weak SKIN: No rashes. Pale Assessment: Hypotension with hypotensive shock requiring pressor support likely secondary to acute GI bleed and hypovolemia Acute GI bleed from the ostomy secondary to an abdominal wall extravasation near the ostomy requiring sutures and cauterization 12/30/2023, resolved Acute blood loss anemia secondary to above acute kidney injury secondary to hypotension acute urinary tract infection, secondary to indwelling Medina catheter, while inpatient. 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 Case management following and plan will be to return home on discharge as patient is baseline and would not qualify for ECF for rehab. Currently working with Dr. Ivey's office and planning for a telehealth visit that was approved by their office to be able to continue with home care orders as well as TPN orders. Patient also must physically make an appointment in her office before February 15 or patient will be discharged from the practice. Cece pope has not been seen since February 2023. Case management following and will arrange for a telehealth visit hopefully by Saturday to arrange for discharge planning. Multiple consultations following and patient will continue on IV antibiotics with infectious disease following. Will discuss further with infectious disease regarding discharge planning and antibiotics on discharge Continue TPN with dietary consult. Case management also providing resources in regards to visiting physicians if nedra gunjantoshia is unable to make it to Dr. Ivey's office before February 15. Pulmonary following recommend to continue with current regimen and patient is status post bronchoscopy with repeat bronchoscopy culture showing Klebsiella pneumonia and Bella glabrata from the aspirate on the left. Repeat blood culture negative Continue to monitor blood sugars closely and noted patient has had decreased blood sugar readings and will adjust insulins and continue with sliding scale and decrease long-acting for now Possible discharge planning early next week Due to multiple complex medical issues, overall prognosis is guarded The impression and plan of care has been dictated by Alyssa Hernandez, Nurse Practitioner as directed. Dr. Vicente MD I have performed a history and examination and MDM of this patient, discussed the same with the dictator, and agree with the dictator's assessment and plan as written ,documented as a scribe. Based on total visit time, I have performed more than 50% of the visit. Objective - Vital Signs Vital signs: Vital Signs Temp 99.2 F 01/10/24 01:07 Pulse 84 01/10/24 08:44 Resp 18 01/10/24 01:07 BP 111/66 01/10/24 01:07 Pulse Ox 96 01/10/24 01:07 FiO2 40 01/10/24 03:18 Intake & Output 01/09/24 01/10/24 01/10/24 18:59 06:59 18:59 Intake Total 1034.5 Output Total 2950 1700 Balance -1915.5 -1700 Weight 98 kg 98 kg Intake: Intake, IV Titration 1034.5 Amount Sodium Chloride 4Meq/ml 1034.5 Vial 50 meq Potassium Acetate 10 meq Calcium Gluconate 1 gm Magnesium Sulfate gm 1 gm Potassium Phosphate 15 mmol In Amino Acid 5%-D15w 1,000 ml @ 120 mls/hr IV .BY DURATION [facility] Rx#: [id number] Output: Drainage 500 Right Abdomen 500 Urine 1450 800 Stool 1000 900 Other: Voiding Method External Catheter External Catheter ABP, PAP, CO, CI - Last Documented Arterial Blood Pressure 108/54 - Labs CBC & Chem 7: 01/07/24 05:23 01/10/24 03:28 Labs: Abnormal Lab Results - Last 24 Hours (Table) 01/09/24 01/10/24 Range/Units 11:34 03:28 Sodium 135 L (137-145) mmol/L Creatinine 0.51 L (0.66-1.25) mg/dL Glucose 109 H (74-99) mg/dL POC Glucose (mg/dL) 116 H (70-110) mg/dL Calcium 8.2 L (8.4-10.2) mg/dL Albumin 2.5 L (3.5-5.0) g/dL Microbiology - Last 24 Hours (Table) 12/31/23 14:00 Acid Fast Bacilli Smear - Preliminary Bronchoalviolar Lavage - Left Acid Fast Bacilli Culture - Preliminary
[2024-01-10 23:59] LABS: Glucose,Whole Blood 90 mg/dL (70-110)
[2024-01-11 04:00] LABS: African American GFR (CKD) >90 (>60 ml/min/1.73 sqM); Anion Gap 1 mmol/L; Blood Urea Nitrogen 16 mg/dL (9-20); Calcium 8.3 mg/dL (8.4-10.2); Carbon Dioxide 31 mmol/L (22-30); Chloride 105 mmol/L (98-107); Glucose 144 mg/dL (74-99); Magnesium 1.9 mg/dL (1.6-2.3); Non-African American GFR(CKD) >90 (>60 ml/min/1.73 sqM); Phosphorus 4.1 mg/dL (2.5-4.5); Potassium 3.9 mmol/L (3.5-5.1); Sodium 137 mmol/L (137-145)
[2024-01-11 06:25] LABS: Glucose,Whole Blood 120 mg/dL (70-110)
--- NOTE | 2024-01-11 09:57 | P.PN ---
Subjective Progress Note Date: 01/10/24 Principal diagnosis: Reason for follow-up is sepsis UTI/pneumonia Patient is a 48-year-old male with a past medical history difficult for CVA TIA DVT did have a history of Crohn's disease with bowel perforation requiring ileostomy and also have a enterocutaneous fistula patient initially presentation to the hospital was weakness not feeling well subsequent did have w orsening of the respiratory status requiring intubation did have a fever concerning for possible pneumonia. On today's evaluation that is 01/10/2024,the patient remains to be afebrile, patient is on 2 L nasal cannula supplemental oxygen and denies any worsening shortness of breath no chest pain and cough has decreased in intensity.Patient denies having any nausea or vomiting, no abdominal pain. Patient did have a creatinine 0.59 electrolytes are normal no CBC was done Objective - Vital Signs Vital signs: Vital Signs Temp 99.2 F 01/10/24 01:07 Pulse 80 01/10/24 11:32 Resp 18 01/10/24 01:07 BP 111/66 01/10/24 01:07 Pulse Ox 96 01/10/24 01:07 FiO2 40 01/10/24 03:18 Intake & Output 01/09/24 01/10/24 01/10/24 18:59 06:59 18:59 Intake Total 1034.5 Output Total 2950 1700 Balance -1915.5 -1700 Weight 98 kg 98 kg Intake: Intake, IV Titration 1034.5 Amount Sodium Chloride 4Meq/ml 1034.5 Vial 50 meq Potassium Acetate 10 meq Calcium Gluconate 1 gm Magnesium Sulfate gm 1 gm Potassium Phosphate 15 mmol In Amino Acid 5%-D15w 1,000 ml @ 120 mls/hr IV .BY DURATION [facility] Rx#: [id number] Output: Drainage 500 Right Abdomen 500 Urine 1450 800 Stool 1000 900 Other: Voiding Method External Catheter External Catheter External Catheter ABP, PAP, CO, CI - Last Documented Arterial Blood Pressure 108/54 - Exam GENERAL DESCRIPTION: Middle-age male lying in bed in no distress RESPIRATORY SYSTEM: Unlabored breathing , decreased breath sounds at bases HEART: S1 S2 regular rate and rhythm , ABDOMEN: Soft , no tenderness EXTREMITIES: Diffuse swelling to the leg no redness, 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 - Labs CBC & Chem 7: 01/07/24 05:23 01/11/24 03:05 Labs: Abnormal Lab Results - Last 24 Hours (Table) 01/10/24 Range/Units 03:28 Sodium 135 L (137-145) mmol/L Creatinine 0.51 L (0.66-1.25) mg/dL Glucose 109 H (74-99) mg/dL Calcium 8.2 L (8.4-10.2) mg/dL Albumin 2.5 L (3.5-5.0) g/dL Microbiology - Last 24 Hours (Table) 12/31/23 14:00 Acid Fast Bacilli Smear - Preliminary Bronchoalviolar Lavage - Left Acid Fast Bacilli Culture - Preliminary Assessment and Plan (1) Pneumonia Current Visit: Yes Status: Acute Code(s): J18.9 - PNEUMONIA, UNSPECIFIED ORGANISM SNOMED Code(s): 272486160 (2) Sepsis Current Visit: No Status: Acute Code(s): A41.9 - SEPSIS, UNSPECIFIED ORGANI SM SNOMED Code(s): 08896814 Plan: 1patient with sepsis/septic shock in this patient who did have a fever elevated white count high clinical suspicion of possible left lower lobe pneumonia in this patient who did have multiple comorbidities and complicated intra-abdominal history with history of bowel perforation and did have ileostomy and enterocutaneous fistula keeping in mind the patient has been in and out of the hospital we will need to cover for the resistant gram-positive as well as gram- negative pathogen 2-patient bronchial culture grew MRSA urine is growing Klebsiella that is sensitive to Unasyn, repeat bronchoscopy cultures are growing Klebsiella and Bella glabrata 3patient did have resolution of his fever and the patient white count normalized 4patient has shown clinical improvement continue with vancomycin and Unasyn while inpatient and monitor clinical course closely Dictation was produced using [employer] dictation software. please excuse any grammatical, word or spelling errors. Time with Patient: Less than 30
[2024-01-11] MEDS: VANCOMYCIN TROUGH DUE 1 EACH MISC MISCELLANE ONE (10:31)
[2024-01-11 11:21] LABS: Glucose,Whole Blood 90 mg/dL (70-110)
--- NOTE | 2024-01-11 11:23 | P.PN ---
Subjective Progress Note Date: 01/11/24 On 01/04/2024, the patient is being seen for a follow-up. The patient was weaned off the mechanical ventilator and the patient was extubated to BiPAP and this morning the patient is on 6 L of O2 nasal cannula. Cough remains weak and the patient is unable to bring up much sputum. His early sputum analysis was positive for MRSA. Chest x-ray from today shows a right-sided pleural effusion and atelectatic changes lung base bilaterally. The patient seems to be calm and comfortable and awake and communicating. He is profoundly weak. He remains on norepinephrine which is running at 0.05 mcg/kg/min. Vasopressin was discontinued. IV fluids are currently at KVO. Remains on TPN for nutritional support. Sodium is at 142, potassium 3.6 BUN is 17 with a creatinine of 0.5. CBC still pending for now. The patient remains on Unasyn and vancomycin. Remains on TPN for nutritional support. He is currently off propofol. Ileostomy is functional and there is no evidence of any bleeding from the ileo stomy or the enterocutaneous fistulas. On 01/05/2024, the patient is awake and alert and the patient is currently on a BiPAP is alternating between BiPAP pressures of 12/5 with an FiO2 40% and 40 dis impaction by nasal cannula. Chest x-ray showing atelectasis and possibly development of right-sided pleural effusion. The patient was given diuretics yesterday and the patient has diuresed adequately and he has developed hypokalemia. Fluid balance is -2.5 L over the past 24 hours. Urine output is more than 100 cc an hour. Ileostomy output is normal drop 3.7 L over the past 24 hours. Remains on TPN for nutritional support at a rate of 120 cc an hour. The white cell count of 4.3 with a hemoglobin of 8. Sodium is at 146, BUN 16 with a creatinine of 0.5. Potassium level is at 3.2. Serum bicarb is at 32. Awake and alert. Profoundly weak. Communicating. The patient remains on Unasyn and vancomycin. He is currently off pressors. Patient was seen today on 01/06/2024, remains in the ICU, on BiPAP 12/5/40% remains on antibiotics in the form of Unasyn and vancomycin remains on TPN at 120 cc/h. Chest x-ray continues to show atelectasis and small right-sided pleural effusion patient remains on diuretics, and he diuresed adequately. Continues to diurese, and continues to have good urine output. Continues to have significant ileostomy output. Patient remains on TPN for nutritional support. Labs showed WBC count 4.5 hemoglobin 7.9 basic metabolic profile is normal bicarb is 35 renal profile is normal Patient was evaluated on 01/07/2024, remains in the ICU, developed hypotension last night required going back on norepinephrine at 0.05 mcg/kg/min. Today the patient is doing well, his mean arterial pressure is in the 80s, hence I recommended tapering and possibly discontinuation of norepinephrine. Patient was on pressure support 12//50%, today he is on nasal cannula, does not seem to be in distress. He feels fine. His left groin arterial line has been removed. Continues to have significant drainage from his ostomy and fistula in the abdomen, and this is connected to a drainage tube. Patient remains on TPN at 1 of 25 cc/h. Chest x-ray continues to show some limited airspace disease in the right lower lobe, patient tells me today that he feels better than he felt yesterday in spite of requiring norepinephrine and I plan to discontinue WBC count is 7.0 hemoglobin is 8.9. Basic metabolic profile is normal renal profile is normal Was seen today on 01/08/2024 remains in the ICU on 2 L nasal cannula receiving TPN remains on antibiotics intermittently on BiPAP 12/5/40%. Patient is an overflow he needs to go to the floor once a bed becomes available, and we will plan to transfer the patient down to 3 S. Relatively asymptomatic, basic metabolic profile is normal BUN is 22 creatinine 0.47 chest x-ray showing improving perihilar and basilar infiltrates Patient was seen today at, remains in the ICU as an overflow, relatively asymptomatic laying in bed, remains on Unasyn and vancomycin, the plan is to eventually transition the patient to Augmentin and Zyvox when he goes home. Or goes to rehab. Patient had Klebsiella pneumonia in the sputum and he had MRSA, remains on TPN at 130 cc/h, intermittently on BiPAP 12/5/40%, patient seems to be comfortable presently on 2 L nasal cannula and not in distress. And he has no active symptoms labs today were reviewed, he had relatively normal basic metabolic profile and liver profile. BUN however is 2.5. The patient is seen today January 10, 2024 in follow-up on the regular medical floor. He was transferred out of the intensive care unit yesterday. He is currently resting comfortably in bed. Awake and alert in no acute distress. Is maintaining good O2 saturations in the 90s on 2 L/min per nasal cannula. He is afebrile. Hemodynamically stable. Sodium 135. Potassium 4.0. Bicarb 28. BUN 18. Creatinine 0.51. Glucose 109. He remains on Unasyn and vancomycin. Continued on lipids and TPN at 83 mL/h. Lovenox for DVT prophylaxis. Bronchioloalveolar lavage from 12/31/2023 was positive for MRSA, Klebsiella pneumoniae, Bella glabrata, urine was positive for Klebsiella pneumoniae. The patient is seen today January 11, 2024 in follow-up on the regular medical floor. He is awake and alert in no acute distress. He is resting in bed. He denies any worsening shortness of breath, cough or congestion. He is maintaining good O2 saturations up to 100% on 2 L/min per nasal cannula. He is afebrile. Hemodynamically stable. Bronchial wash cultures were positive for Klebsiella pneumoniae. Urine culture was positive for Klebsiella pneumoniae. Previous bronch culture was positive for MRSA. Sodium 137. Potassium 3.9. Bicarb 31. BUN 16. Creatinine 0.59. Glucose 145. Vancomycin trough 15.0. He remains on Unasyn and vancomycin. He is on Lovenox for DVT prophylaxis. TPN and lipids for nutritional support. Objective - Vital Signs Vital signs: Vital Signs Temp 98.3 F 01/11/24 08:00 Pulse 88 01/11/24 08:15 Resp 16 01/11/24 08:00 BP 100/58 01/11/24 08:00 Pulse Ox 100 01/11/24 08:00 FiO2 40 01/11/24 04:11 Intake & Output 01/10/24 01/11/24 01/11/24 18:59 06:59 18:59 Output Total 1500 650 Balance -1500 -650 Weight 98 kg Output: Urine 1000 Stool 500 650 Other: Voiding Method External Catheter ABP, PAP, CO, CI - Last Documented Arterial Blood Pressure 108/54 - Exam GENERAL EXAM: Awake, alert pleasant 48-year-old male, resting comfortably in bed, in no acute distress. On 2 L nasal cannula HEAD: Normocephalic and atraumatic EYES: Normal reaction of pupils, equal size. NOSE: Clear with pink turbinates. THROAT: No erythema or exudates. NECK: No masses, no JVD. CHEST: No chest wall deformity. Left subclavian double-lumen central line LUNGS: Equal air entry with no crackles, wheeze, rhonchi or dullness. CVS: S1 and S2 normal with no audible murmur, regular rhythm. No extra heart sounds ABDOMEN: Ileostomy with brown stool, enterocutaneous fistula noted with stool no evidence of any bleeding. Multiple surgical scars noted throughout the whole abdomen. SKIN: No rashes CENTRAL NERVOUS SYSTEM: Alert and oriented x 3 no gross focal deficit EXTREMITIES: Right BKA, left leg weakness and left foot drop, remaining distal pulses are weak and only found with Doppler. Extremities are showing diminished pulses bilaterally - Labs CBC & Chem 7: 01/07/24 05:23 01/11/24 03:05 Labs: Abnormal Lab Results - Last 24 Hours (Table) 01/10/24 01/11/24 01/11/24 Range/Units 16:43 03:05 06:18 Carbon Dioxide 31 H (22-30) mmol/L Creatinine 0.59 L (0.66-1.25) mg/dL Glucose 144 H (74-99) mg/dL POC Glucose (mg/dL) 116 H 120 H (70-110) mg/dL Calcium 8.3 L (8.4-10.2) mg/dL Microbiology - Last 24 Hours (Table) 12/31/23 14:00 Fungal Culture - Preliminary Bronchoalviolar Lavage - Left Assessment and Plan Assessment: Acute hypoxic respiratory failure, with bilateral pneumonia in the lung bases/atelectasis and the bronchial lavage that was done earlier was positive for MRSA. 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 Under control Recent history of ventilator dependent respiratory failure, secondary to pneumonia, microbiology from BAL positive for haemophilus influenzae History of DVT, on therapeutic dose of Lovenox History of Crohn's disease complicated by bowel perforation status post colectomy and diverting ileostomy. 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 Currently receiving TPN for nutritional support. 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 Number of minutes spent on the visit: 25 Dictation was produced using [employer] dictation software. Please excuse any grammatical, word or spelling errors.
--- NOTE | 2024-01-11 14:31 | P.PN ---
Subjective Progress Note Date: 01/11/24 Principal diagnosis: Reason for follow-up is sepsis UTI/pneumonia Patient is a 48-year-old male with a past medical history difficult for CVA TIA DVT did have a history of Crohn's disease with bowel perforation requiring ileostomy and also have a enterocutaneous fistula patient initially presentation to the hospital was weakness not feeling well subsequent did have w orsening of the respiratory status requiring intubation did have a fever concerning for possible pneumonia. On today's evaluation that is 01/11/2024, the patient continues to be afebrile, the patient is on 2 L nasal oxygen and breathing comfortably, the Pt denies having any chest pain or cough, the patient denies having any abdominal pain no vomiting or any worsening output in his ileostomy. Patient did have creatinine 0.59 Vanco trough is 15.0 Objective - Vital Signs Vital signs: Vital Signs Temp 98.3 F 01/11/24 08:00 Pulse 88 01/11/24 11:23 Resp 16 01/11/24 08:00 BP 100/58 01/11/24 08:00 Pulse Ox 100 01/11/24 08:00 FiO2 40 01/11/24 04:11 Intake & Output 01/10/24 01/11/24 01/11/24 18:59 06:59 18:59 Output Total 6824 549 4392 Balance -1500 -650 -1200 Weight 98 kg Output: Urine 1000 Stool 701 545 6180 Other: Voiding Method External Catheter External Catheter ABP, PAP, CO, CI - Last Documented Arterial Blood Pressure 108/54 - Exam GENERAL DESCRIPTION: Middle-age male lying in bed in no distress RESPIRATORY SYSTEM: Unlabored breathing , decreased breath sounds at bases HEART: S1 S2 regular rate and rhythm , ABDOMEN: Soft , no tenderness EXTREMITIES: Diffuse swelling to the leg no redness, 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 - Labs CBC & Chem 7: 01/07/24 05:23 01/11/24 03:05 Labs: Abnormal Lab Results - Last 24 Hours (Table) 01/10/24 01/11/24 01/11/24 Range/Units 16:43 03:05 06:18 Carbon Dioxide 31 H (22-30) mmol/L Creatinine 0.59 L (0.66-1.25) mg/dL Glucose 144 H (74-99) mg/dL POC Glucose (mg/dL) 116 H 120 H (70-110) mg/dL Calcium 8.3 L (8.4-10.2) mg/dL Microbiology - Last 24 Hours (Table) 12/31/23 14:00 Fungal Culture - Preliminary Bronchoalviolar Lavage - Left Assessment and Plan (1) Pneumonia Current Visit: Yes Status: Acute Code(s): J18.9 - PNEUMONIA, UNSPECIFIED ORGANISM SNOMED Code(s): 741988216 (2) Sepsis Current Visit: No Status: Acute Code(s): A41.9 - SEPSIS, UNSPECIFIED ORGANISM SNOMED Code(s): 54277773 Plan: 1patient with sepsis/septic shock in this patient who did have a fever elevated white count high clinical suspicion of possible left lower lobe pneumonia in this patient who did have multiple comorbidities and complicated intra-abdominal history with history of bowel perforation and did have ileostomy and enterocutaneous fistula keeping in mind the patient has been in and out of the hospital we will need to cover for the resistant gram-positive as well as gram-n egative pathogen 2-patient bronchial culture grew MRSA urine is growing Klebsiella that is sensitive to Unasyn, repeat bronchoscopy cultures are growing Klebsiella and Bella glabrata 3patient did have resolution of his fever and the patient white count normalized 4patient vancomycin trough is therapeutic we will continue vancomycin and Unasyn while inpatient and transition to oral antibiotics on discharge Dictation was produced using [employer] dictation software. please excuse any grammatical, word or spelling errors. Time with Patient: Less than 30
[2024-01-11 16:54] LABS: Glucose,Whole Blood 138 mg/dL (70-110)
[2024-01-12 01:59] LABS: Glucose,Whole Blood 152 mg/dL (70-110)
--- NOTE | 2024-01-12 05:23 | P.PN ---
Subjective Progress Note Date: 01/11/24 This is a pleasant 48 years old male with past medical history of Crohn disease complicated with bowel perforation requiring ileostomy, also has 2 fistula in his anterior abdominal Wall, patient also has left upper chest portal to receive TPN who was only discharged yesterday after being admitted to the hospital for pneumonia and respiratory failure was discharged yesterday in stable condition. Patient came back to the ER today because of debility and having issues with his TPN supplies. There has been some issues with primary care appointments and orders with TPN requiring signature from his PCP. At this time patient denies any chest pain or shortness of breath. There was no complaint of fever or chills. Denies any nausea, vomiting, abdominal pain. Denies any lightheaded dizziness. Initial lab work done in the ER showed W6.3, hemoglobin 20.7, platelet count 264, sodium 130, potassium 4.9, BUN 20, creatinine 0.41, phosphorus 2.4, alk phos 133, total protein 9 Patient admitted to internal medicine service 12/26. Patient seen and examined. Complaining of pain in his right hand. D enies any shortness of breath /12. Patient seen and examined. Potassium level this morning was 5.5, patient was getting potassium supplementation, will DC it for now. 12/28. Patient seen and examined. Patient had a rapid response called overnight for low blood pressure, patient was given 2-1/2 L of fluid. Labs on this morning showed WBC 10.4, hemoglobin 14.4, platelet count 420, sodium 124, p otassium 5.5, BUN 104, creatinine 1.59. Ostomy output is blood-tinged. 12/30/2023 Patient continues in the ICU requiring low-dose pressor support and currently being weaned. Multiple consultations following including general surgery and did a washout of the abdomen early this morning along with cauterizing and placing sutures to an area near the ostomy that had been bleeding. Hemoglobin is stable and is being closely monitored with hemoglobins every 6 hours. Transfuse if 7 or less. Patient to continue with strict n.p.o. and is maintained on TPN. Blood sugars have been more elevated and will add long- acting and adjust insulins accordingly 12/31/2023 Patient continues in the ICU with multiple consultations following. Patient requiring increased oxygen demands currently on 6 L and transition to Airvo and pulmonary chemical recovery operator following planning on bronchoscopy today. Patient is a febrile although continues with an elevated white count and hemoglobin is stable above 8 with no active bleeding noted. Patient is n.p.o. maintained on TPN at this time. Blood sugars continue to be in the 200s consistently and will adjust long-acting and continue sliding scale. 01/01/2024 patient is seen in follow up today and experienced increasing respiratory demands and became more obtunded and unresponsive requiring mechanical ventilation. Patient FiO2 is 50% with a PEEP of 8 and is status post bronchoscopy yesterday. Patient maintained on Levophed and vasopressin along with propofol. White count is elevated and patient is continued on IV antibiotics in the form of vancomycin and Zosyn. Cultures have been sent and pending at this time. Will consult infectious disease and appreciate input and recommendations. Hemoglobin is stable at 7.8 with no active bleeding noted. Potassium 2.7 and magnesium 1.5 along with phosphorus 0.9 and being replaced per protocol. Kidney functions remained stable at this time other than a chloride of 115 and sodium is 142. Patient is also being started on Eraxis. Recommend adjusting TPN per dietary and pharmacy. Overall prognosis remains extremely guarded at this time. 01/02/2024 Patient is evaluated in the intensive care unit he is currently intubated however he is awake alert oriented with eye moving and able to respond with nods to simple questions. Pressor support in the process of being weaned her blood pressure 144/65. Mechanical ventilator with an FiO2 of 50% and a PEEP of . Continues on TPN. Rectal tube in place continues with loose stools. C.Dif was negative. Cultures currently pending. Remains on Antibiotics with IV Zosyn, IV vancomycin as well as IV anidulafungin. Procalcitonin level was mildly elevated at 1.38. X-ray this morning reveals basilar atelectasis on the left as well as right midlung. Has white blood cell count is down to 10.7 today hemoglobin of 8.1. Sodium level is 142, potassium 2.6, BUN of 43 creatinine of 0.68. Magnesium 1.7. Blood glucose in the 150s continues on Levemir twice a day for this. 01/03/2024 Patient is seen in follow-up today remains intubated and discussing possible e xtubation today with pulmonary following scheduled to undergo bronchoscopy as well. Patient is maintained on antibiotics with infectious disease following while awaiting urine cultures as well as sputum culture showing MRSA. Preliminary urine is gram-negative and will continue current antibiotic regimen. Patient remains on low-dose pressor support and attempting to wean. TPN continues and tolerating. Continue to monitor Accu-Cheks and continue current regimen although blood sugars have been a little lower today. Recommend Accu- Cheks before meals and at bedtime and 2 AM. Patient is alert and responding on exam as propofol is off. Patient extremely weak and lethargic and falls asleep during conversation. Patient also appears frustrated as he is unable to communicate due to intubation 01/03. Patient seen and examined. 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 Patient received IV Lasix this morning. No bleeding around the ileostomy site. 01/04. Patient examined. Potassium placement ordered. States he feels better compared to yesterday. Denies any chest pain 01/06/2024 Patient is seen in follow-up continues in the ICU and is currently maintained on nasal cannula and tolerating thus far. Patient continues on TPN with multiple consultations following. Awaiting finalized cultures on repeat sputum culture from most recent bronchoscopy. Patient is afebrile and white count remains normal. Patient is continued on IV antibiotics in the form of Unasyn as well as vancomycin. Patient also continues on low-dose norepinephrine and is being weaned. 01/07/2024 Patient is seen in follow-up today and remains in the ICU and currently has been weaned off of Levophed maintaining blood pressures. Planning for transferring out of the ICU if blood pressure remains stable. Patient is afebrile and continued on IV antibiotics and will continue the same with infectious disease following. White count has normalized and patient is afebrile. Patient continues on TPN and will continue at this time. Patient also continues on 2 L via nasal cannula as well as titrating and weaning as tolerated. Patient using BiPAP intermittently as needed as well. Chest x-ray today showed a stable chest. 01/08/2024 Patient is seen in follow-up today remains off pressor support and awaiting a bed on 3 S. is a downgrade from ICU. Multiple consultations following and awaiting PT/OT therapy evaluation as patient will likely need ECF for continued strength and mobility. Currently working on discharge planning regarding TPN as patient's primary care provider Dr. Ivey has reported she needs to see the patient prior to reinitiating any further orders and previous surgeon from [facility] has refused to sign any future orders regarding TPN. Social work following and have also discussed possible visiting physician to come to the home as patient is mostly bedbound and has supportive care at the home per family. Patient is afebrile with no reports of chest pain or shortness of breath. 01/09/2024 Patient is seen and evaluated in follow-up today and is being moved out of the ICU blood pressure has been stabilized and patient remains off pressor support. Patient evaluated by PT/OT therapy and per social work patient is at baseline and would not qualify for ECF. Patient has extensive wounds of the abdomen along with ostomy care as a BKA and mostly bedbound making it extremely difficult to follow-up at doctors office appointments and has been in and out of the hospital multiple times this last year. Currently attempting to work with primary care provider Dr. Ivey's office as patient is maintained on TPN al though has not been seen and evaluated in her office since February 2023. Patient would need to have an appointment with the provider in the office to reestablish and continue TPN orders. Home care is being arranged and will discuss with case management/social work regarding other options. 01/10/2024 Patient is seen in follow-up today with no acute overnight issues. Multiple consultations following and patient is maintained on TPN. Respiratory status improved and pulmonary has cleared the patient is once cleared by other consultations for discharge home. Patient will continue current regimen for now and will discuss with infectious disease with likely oral antibiotics on discharge. Discussed with Dr. Ivey's office regarding social issues and transportation with making it to appointments and they have agreed to conduct a telehealth visit hopefully for Saturday to continue with TPN orders as well as home care orders. Patient will also need to physically be present for an appointment in the office with Dr. Ivey before February 16, 2024 in order to remain a patient of hers. This was expressed to patient along with family members. 01/11/2024 Patient is seen in follow-up today with multiple consultations following. Patient has a telehealth visit with primary care provider Dr. Ivey on Saturday afternoon working on arranging for discharge planning with home care as well as continued TPN orders. Patient will also be required to physically be present and appointment with Dr. Ivey's office before February for her to continue being his primary care provider. Patient is afebrile tolerating TPN with no acute issues noted. Continue ostomy care and patient will continue on antibiotics with infectious disease following for now. Will discuss further regarding discharge planning if patient will require antibiotics on discharge. REVIEW OF SYSTEMS: CONSTITUTIONAL: No fever, no malaise,. CARDIOVASCULAR: No chest pain, no palpitations, no syncope. PULMONARY: No shortness of breath, no cough, GASTROINTESTINAL: No diarrhea, no nausea, no vomiting, no abdominal pain. NEUROLOGICAL: No headaches, reports generalized weakness PHYSICAL EXAMINATION: GENERAL: The patient is alert and oriented x3, ill looking, elderly appearing, obese HEENT: Pupils are round and equally reacting to light. EOMI. No scleral icterus. No conjunctival pallor. Normocephalic, atraumatic. No pharyngeal erythema. No thyromegaly. CARDIOVASCULAR: S1 and S2 present. No murmurs, rubs, or gallops. PULMONARY: Diminished breath sound the bases bilaterally with some scattered rhonchi and bronchial congestion noted. ABDOMEN: Soft, nontender, nondistended,. Ostomy seen MUSCULOSKELETAL: No joint swelling or deformity. Right BKA EXTREMITIES: No cyanosis, clubbing, or pedal edema. NEUROLOGICAL: Gross neurological examination did not reveal any focal deficits. Diffusely weak SKIN: No rashes. Pale Assessment: Hypotension with hypotensive shock requiring pressor support likely secondary to acute GI bleed and hypovolemia Acute GI bleed from the ostomy secondary to an abdominal wall extravasation near the ostomy requiring sutures and cauterization 12/30/2023, resolved Acute blood loss anemia secondary to above acute kidney injury secondary to hypotension acute urinary tract infection, secondary to indwelling Medina catheter, while inpatient. 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 Case management following and plan will be to return home on discharge as patient is baseline and would not qualify for ECF for rehab. Currently working with Dr. Ivey's office and a telehealth visit has been arranged for Saturday. That was approved by their office to be able to continue with home care orders as well as TPN orders. Patient also must physically make an appointment in her office before February 15 or patient will b e discharged from the practice. Patient has not been seen since February 2023. Case management following and assisting with a telehealth visit for Saturday to arrange for discharge planning. Multiple consultations following and patient will continue on IV antibiotics with infectious disease following. Will discuss further with infectious disease regarding discharge planning and antibiotics on discharge as sputum and urine cultures with Klebsiella Continue TPN with dietary consult. Case management also providing resources in regards to visiting physicians if patient is unable to make it to Dr. Ivey's office before February 15. Pulmonary following recommend to continue with current regimen and patient is status post bronchoscopy with repeat bronchoscopy culture showing Klebsiella pneumonia and Bella glabrata from the aspirate on the left. Repeat blood culture remain negative Continue to monitor blood sugars closely and noted patient has had decreased blood sugar readings and will adjust insulins and continue with sliding scale and decrease long-acting for now Possible discharge planning early next week. Await telehealth visit on Saturday Due to multiple complex medical issues, overall prognosis is guarded The impression and plan of care has been dictated by Alyssa Hernandez, Nurse Practitioner as directed. Dr. Vicente MD I have performed a history and examination and MDM of this patient, discussed the same with the dictator, and agree with the dictator's assessment and plan as written ,documented as a scribe. Based on total visit time, I have performed more than 50% of the visit. Objective - Vital Signs Vital signs: Vital Signs Temp 98.3 F 01/11/24 08:00 Pulse 88 01/11/24 08:15 Resp 16 01/11/24 08:00 BP 100/58 01/11/24 08:00 Pulse Ox 100 01/11/24 08:00 FiO2 40 01/11/24 04:11 Intake & Output 01/10/24 01/11/24 01/11/24 18:59 06:59 18:59 Output Total 1500 650 Balance -1500 -650 Weight 98 kg Output: Urine 1000 Stool 500 650 Other: Voiding Method External Catheter ABP, PAP, CO, CI - Last Documented Arterial Blood Pressure 108/54 - Labs CBC & Chem 7: 01/07/24 05:23 01/11/24 03:05 Labs: Abnormal Lab Results - Last 24 Hours (Table) 01/10/24 01/11/24 01/11/24 Range/Units 16:43 03:05 06:18 Carbon Dioxide 31 H (22-30) mmol/L Creatinine 0.59 L (0.66-1.25) mg/dL Glucose 144 H (74-99) mg/dL POC Glucose (mg/dL) 116 H 120 H (70-110) mg/dL Calcium 8.3 L (8.4-10.2) mg/dL Microbiology - Last 24 Hours (Table) 12/31/23 14:00 Fungal Culture - Preliminary Bronchoalviolar Lavage - Left
[2024-01-12 06:49] LABS: Glucose,Whole Blood 132 mg/dL (70-110)
[2024-01-12 07:00] LABS: African American GFR (CKD) >90 (>60 ml/min/1.73 sqM); Anion Gap 3 mmol/L; Blood Urea Nitrogen 18 mg/dL (9-20); Calcium 8.4 mg/dL (8.4-10.2); Carbon Dioxide 30 mmol/L (22-30); Chloride 106 mmol/L (98-107); Glucose 124 mg/dL (74-99); Magnesium 1.8 mg/dL (1.6-2.3); Non-African American GFR(CKD) >90 (>60 ml/min/1.73 sqM); Phosphorus 3.4 mg/dL (2.5-4.5); Potassium 4.1 mmol/L (3.5-5.1); Sodium 139 mmol/L (137-145)
[2024-01-12] MEDS: 1: MVI, ADULT NO.4 WITH VIT K 10 ML, TRACE (CONC-1ML/DOSE) 1 ML, SODIUM CHLORIDE 4MEQ/ML IV SCH (09:02)
[2024-01-12] MEDS: FAT EMULSION 20% 250 ML IV SCH (09:05)
[2024-01-12] MEDS: VANCOMYCIN 2,000 MG in SODIUM CHLORIDE 0.9% 500 ML 500 ML IVPB SCH (10:05)
[2024-01-12 11:27] LABS: Glucose,Whole Blood 141 mg/dL (70-110)
--- NOTE | 2024-01-12 11:37 | P.PN ---
Subjective Progress Note Date: 01/12/24 On 01/04/2024, the patient is being seen for a follow-up. The patient was weaned off the mechanical ventilator and the patient was extubated to BiPAP and this morning the patient is on 6 L of O2 nasal cannula. Cough remains weak and the patient is unable to bring up much sputum. His early sputum analysis was positive for MRSA. Chest x-ray from today shows a right-sided pleural effusion and atelectatic changes lung base bilaterally. The patient seems to be calm and comfortable and awake and communicating. He is profoundly weak. He remains on norepinephrine which is running at 0.05 mcg/kg/min. Vasopressin was discontinued. IV fluids are currently at KVO. Remains on TPN for nutritional support. Sodium is at 142, potassium 3.6 BUN is 17 with a creatinine of 0.5. CBC still pending for now. The patient remains on Unasyn and vancomycin. Remains on TPN for nutritional support. He is currently off propofol. Ileostomy is functional and there is no evidence of any bleeding from the ileo stomy or the enterocutaneous fistulas. On 01/05/2024, the patient is awake and alert and the patient is currently on a BiPAP is alternating between BiPAP pressures of 12/5 with an FiO2 40% and 40 dis impaction by nasal cannula. Chest x-ray showing atelectasis and possibly development of right-sided pleural effusion. The patient was given diuretics yesterday and the patient has diuresed adequately and he has developed hypokalemia. Fluid balance is -2.5 L over the past 24 hours. Urine output is more than 100 cc an hour. Ileostomy output is normal drop 3.7 L over the past 24 hours. Remains on TPN for nutritional support at a rate of 120 cc an hour. The white cell count of 4.3 with a hemoglobin of 8. Sodium is at 146, BUN 16 with a creatinine of 0.5. Potassium level is at 3.2. Serum bicarb is at 32. Awake and alert. Profoundly weak. Communicating. The patient remains on Unasyn and vancomycin. He is currently off pressors. Patient was seen today on 01/06/2024, remains in the ICU, on BiPAP 12/5/40% remains on antibiotics in the form of Unasyn and vancomycin remains on TPN at 120 cc/h. Chest x-ray continues to show atelectasis and small right-sided pleural effusion patient remains on diuretics, and he diuresed adequately. Continues to diurese, and continues to have good urine output. Continues to have significant ileostomy output. Patient remains on TPN for nutritional support. Labs showed WBC count 4.5 hemoglobin 7.9 basic metabolic profile is normal bicarb is 35 renal profile is normal Patient was evaluated on 01/07/2024, remains in the ICU, developed hypotension last night required going back on norepinephrine at 0.05 mcg/kg/min. Today the patient is doing well, his mean arterial pressure is in the 80s, hence I recommended tapering and possibly discontinuation of norepinephrine. Patient was on pressure support 12//50%, today he is on nasal cannula, does not seem to be in distress. He feels fine. His left groin arterial line has been removed. Continues to have significant drainage from his ostomy and fistula in the abdomen, and this is connected to a drainage tube. Patient remains on TPN at 1 of 25 cc/h. Chest x-ray continues to show some limited airspace disease in the right lower lobe, patient tells me today that he feels better than he felt yesterday in spite of requiring norepinephrine and I plan to discontinue WBC count is 7.0 hemoglobin is 8.9. Basic metabolic profile is normal renal profile is normal Was seen today on 01/08/2024 remains in the ICU on 2 L nasal cannula receiving TPN remains on antibiotics intermittently on BiPAP 12/5/40%. Patient is an overflow he needs to go to the floor once a bed becomes available, and we will plan to transfer the patient down to 3 S. Relatively asymptomatic, basic metabolic profile is normal BUN is 22 creatinine 0.47 chest x-ray showing improving perihilar and basilar infiltrates Patient was seen today at, remains in the ICU as an overflow, relatively asymptomatic laying in bed, remains on Unasyn and vancomycin, the plan is to eventually transition the patient to Augmentin and Zyvox when he goes home. Or goes to rehab. Patient had Klebsiella pneumonia in the sputum and he had MRSA, remains on TPN at 130 cc/h, intermittently on BiPAP 12/5/40%, patient seems to be comfortable presently on 2 L nasal cannula and not in distress. And he has no active symptoms labs today were reviewed, he had relatively normal basic metabolic profile and liver profile. BUN however is 2.5. The patient is seen today January 10, 2024 in follow-up on the regular medical floor. He was transferred out of the intensive care unit yesterday. He is currently resting comfortably in bed. Awake and alert in no acute distress. Is maintaining good O2 saturations in the 90s on 2 L/min per nasal cannula. He is afebrile. Hemodynamically stable. Sodium 135. Potassium 4.0. Bicarb 28. BUN 18. Creatinine 0.51. Glucose 109. He remains on Unasyn and vancomycin. Continued on lipids and TPN at 83 mL/h. Lovenox for DVT prophylaxis. Bronchioloalveolar lavage from 12/31/2023 was positive for MRSA, Klebsiella pneumoniae, Bella glabrata, urine was positive for Klebsiella pneumoniae. The patient is seen today January 11, 2024 in follow-up on the regular medical floor. He is awake and alert in no acute distress. He is resting in bed. He denies any worsening shortness of breath, cough or congestion. He is maintaining good O2 saturations up to 100% on 2 L/min per nasal cannula. He is afebrile. Hemodynamically stable. Bronchial wash cultures were positive for Klebsiella pneumoniae. Urine culture was positive for Klebsiella pneumoniae. Previous bronch culture was positive for MRSA. Sodium 137. Potassium 3.9. Bicarb 31. BUN 16. Creatinine 0.59. Glucose 145. Vancomycin trough 15.0. He remains on Unasyn and vancomycin. He is on Lovenox for DVT prophylaxis. TPN and lipids for nutritional support. Seen today January 12, 2024 in follow-up on the regular medical floor. He is resting in bed. Awake and alert in no acute distress. He is maintaining good O2 saturations in the 90s on 2 L/min per nasal cannula. He is afebrile. Hemodynamically stable. That is post 2 units of packed red blood cells this admission. Current hemoglobin 8.9. Bronchial wash cultures were positive for Klebsiella pneumoniae. Urine culture was positive for Klebsiella pneumoniae. Previous bronch culture was positive for MRSA. Sodium 139. Potassium 4.1. Bicarb 30. BUN 18. Creatinine 0.55. Glucose 124. He remains on vancomycin and Unasyn. Being nourished with TPN and lipids. Therapeutic Lovenox. Objective - Vital Signs Vital signs: Vital Signs Temp 98.2 F 01/12/24 01:36 Pulse 84 01/12/24 11:22 Resp 18 01/12/24 07:14 BP 102/57 01/12/24 07:14 Pulse Ox 95 01/12/24 07:35 FiO2 40 01/12/24 07:35 Intake & Output 01/11/24 01/12/24 01/12/24 18:59 06:59 18:59 Intake Total 1016 Output Total 2700 2250 Balance -1684 -2250 Weight 114.4 kg Intake: Intake, IV Titration 1016 Amount Mvi, Adult No.4 with Vit 1016 K 10 ml Trace (Conc-1Ml/ Dose) 1 ml Sodium Chloride 4Meq/ml Vial 20 meq In Amino Acid 5%-D20w +Lytes*E* 1,000 ml @ 98 mls/hr IV .BY DURATION [facility] Rx#:[id number] Output: Urine 650 Stool 2700 1600 Other: Voiding Method External Catheter External Catheter ABP, PAP, CO, CI - Last Documented Arterial Blood Pressure 108/54 - Exam GENERAL EXAM: Awake, 48-year-old male, resting in bed, in no acute distress. On 2 L nasal cannula HEAD: Normocephalic and atraumatic EYES: Normal reaction of pupils, equal size. NOSE: Clear with pink turbinates. THROAT: No erythema or exudates. NECK: No masses, no JVD. CHEST: No chest wall deformity. Left subclavian double-lumen central line LUNGS: Equal air entry with no crackles, wheeze, rhonchi or dullness. CVS: S1 and S2 normal with no audible murmur, regular rhythm. No extra heart sounds ABDOMEN: Ileostomy with brown stool, enterocutaneous fistula noted with stool no evidence of any bleeding. Multiple surgical scars noted throughout the whole abdomen. SKIN: No rashes CENTRAL NERVOUS SYSTEM: Alert and oriented x 3 no gross focal deficit EXTREMITIES: Right BKA, left leg weakness and left foot drop, remaining distal pulses are weak and only found with Doppler. Extremities are showing diminished pulses bilaterally - Labs CBC & Chem 7: 01/07/24 05:23 01/12/24 06:16 Labs: Abnormal Lab Results - Last 24 Hours (Table) 01/11/24 01/12/24 01/12/24 Range/Units 16:52 01:56 06:16 Creatinine 0.55 L (0.66-1.25) mg/dL Glucose 124 H (74-99) mg/dL POC Glucose (mg/dL) 138 H 152 H (70-110) mg/dL Triglycerides 174.00 H (0.00-149.00) mg/dL 01/12/24 01/12/24 Range/Units 06:47 11:25 Creatinine (0.66-1.25) mg/dL Glucose (74-99) mg/dL POC Glucose (mg/dL) 132 H 141 H (70-110) mg/dL Triglycerides (0.00-149.00) mg/dL Assessment and Plan Assessment: Acute hypoxic respiratory failure, with bilateral pneumonia in the lung bases/atelectasis and the bronchial lavage that was done earlier was positive for MRSA. 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 Under control Recent history of ventilator dependent respiratory failure, secondary to pneumonia, microbiology from BAL positive for haemophilus influenzae History of DVT, on therapeutic dose of Lovenox History of Crohn's disease complicated by bowel perforation status post colectomy and diverting ileostomy. 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 Currently receiving TPN for nutritional support. 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 Number of minutes spent on the visit: 23 Dictation was produced using [employer] software. Please excuse any grammatical, word or spelling errors.
--- NOTE | 2024-01-12 15:21 | P.PN ---
Subjective Progress Note Date: 01/12/24 Principal diagnosis: Reason for follow-up is sepsis UTI/pneumonia Patient is a 48-year-old male with a past medical history difficult for CVA TIA DVT did have a history of Crohn's disease with bowel perforation requiring ileostomy and also have a enterocutaneous fistula patient initially presentation to the hospital was weakness not feeling well subsequent did have w orsening of the respiratory status requiring intubation did have a fever concerning for possible pneumonia. On today's evaluation that is 01/12/2024, Patient is afebrile patient is currently on 2 L well oxygen and denies having any shortness of breath, the patient denies any chest pain or any worsening cough, the patient denies any nausea vomiting did not have any abdominal pain did have good output through his ileostomy. Patient did have creatinine 0.55 Objective - Vital Signs Vital signs: Vital Signs Temp 98.3 F 01/12/24 13:45 Pulse 98 01/12/24 13:45 Resp 17 01/12/24 13:45 BP 106/61 01/12/24 13:45 Pulse Ox 98 01/12/24 13:45 FiO2 40 01/12/24 07:35 Intake & Output 01/11/24 01/12/24 01/12/24 18:59 06:59 18:59 Intake Total 1016 Output Total 2700 2250 Balance -1684 -2250 Weight 114.4 kg Intake: Intake, IV Titration 1016 Amount Mvi, Adult No.4 with Vit 1016 K 10 ml Trace (Conc-1Ml/ Dose) 1 ml Sodium Chloride 4Meq/ml Vial 20 meq In Amino Acid 5%-D20w +Lytes*E* 1,000 ml @ 98 mls/hr IV .BY DURATION [facility] Rx#:[id number] Output: Urine 650 Stool 2700 1600 Other: Voiding Method External Catheter External Catheter External Catheter ABP, PAP, CO, CI - Last Documented Arterial Blood Pressure 108/54 - Exam GENERAL DESCRIPTION: Middle-age male lying in bed in no distress RESPIRATORY SYSTEM: Unlabored breathing , decreased breath sounds at bases HEART: S1 S2 regular rate and rhythm , ABDOMEN: Soft , no tenderness EXTREMITIES: Diffuse swelling to the leg no redness, 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 - Labs CBC & Chem 7: 01/07/24 05:23 01/12/24 06:16 Labs: Abnormal Lab Results - Last 24 Hours (Table) 01/11/24 01/12/24 01/12/24 Range/Units 16:52 01:56 06:16 Creatinine 0.55 L (0.66-1.25) mg/dL Glucose 124 H (74-99) mg/dL POC Glucose (mg/dL) 138 H 152 H (70-110) mg/dL Triglycerides 174.00 H (0.00-149.00) mg/dL 01/12/24 01/12/24 Range/Units 06:47 11:25 Creatinine (0.66-1.25) mg/dL Glucose (74-99) mg/dL POC Glucose (mg/dL) 132 H 141 H (70-110) mg/dL Triglycerides (0.00-149.00) mg/dL Assessment and Plan (1) Pneumonia Current Visit: Yes Status: Acute Code(s): J18.9 - PNEUMONIA, UNSPECIFIED ORGANISM SNOMED Code(s): 117785947 (2) Sepsis Current Visit: No Status: Acute Code(s): A41.9 - SEPSIS, UNSPECIFIED ORGANISM SNOMED Code(s): 12978014 Plan: 1patient with sepsis/septic shock in this patient who did have a fever elevated white count high clinical suspicion of possible left lower lobe pneumonia in this patient who did have multiple comorbidities and complicated intra-abdominal history with history of bowel perforation and did have ileostomy and enterocutaneous fistula keeping in mind the patient has been in and out of the hospital we will need to cover for the resistant gram-positive as well as gram- negative pathogen 2-patient bronchial culture grew MRSA urine is growing Klebsiella that is sensitive to Unasyn, repeat bronchoscopy cultures are growing Klebsiella and Bella glabrata 3patient did have resolution of his fever and the patient white count normalized 4patient slowly clinical improvement, patient is currently being treated with vancomycin and Unasyn while inpatient and plan to finish therapy with a week course of oral Zyvox and Augmentin Dictation was produced using [employer] dictation software. please excuse any grammatical, word or spelling errors. Time with Patient: Less than 30
[2024-01-12 16:33] LABS: Glucose,Whole Blood 156 mg/dL (70-110)
[2024-01-12 23:59] LABS: Glucose,Whole Blood 151 mg/dL (70-110)
--- NOTE | 2024-01-13 05:29 | P.PN ---
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 Patient came back to the ER today because of debility and having issues with his TPN supplies. There has been some issues with primary care appointments and orders with TPN requiring signature from his PCP. At this time patient denies any chest pain or shortness of breath. There was no complaint of fever or chills. Denies any nausea, vomiting, abdominal pain. Denies any lightheaded dizziness. Initial lab work done in the ER showed W6.3, hemoglobin 20.7, platelet count 264, sodium 130, potassium 4.9, BUN 20, creatinine 0.41, phosphorus 2.4, alk phos 133, total protein 9 Patient admitted to internal medicine service 12/26. Patient seen and examined. Complaining of pain in his right hand. D enies any shortness of breath /12. Patient seen and examined. Potassium level this morning was 5.5, patient was getting potassium supplementation, will DC it for now. 12/28. Patient seen and examined. Patient had a rapid response called overnight for low blood pressure, patient was given 2-1/2 L of fluid. Labs on this morning showed WBC 10.4, hemoglobin 14.4, platelet count 420, sodium 124, p otassium 5.5, BUN 104, creatinine 1.59. Ostomy output is blood-tinged. 12/30/2023 Patient continues in the ICU requiring low-dose pressor support and currently being weaned. Multiple consultations following including general surgery and did a washout of the abdomen early this morning along with cauterizing and placing sutures to an area near the ostomy that had been bleeding. Hemoglobin is stable and is being closely monitored with hemoglobins every 6 hours. Transfuse if 7 or less. Patient to continue with strict n.p.o. and is maintained on TPN. Blood sugars have been more elevated and will add long- acting and adjust insulins accordingly 12/31/2023 Patient continues in the ICU with multiple consultations following. Patient requiring increased oxygen demands currently on 6 L and transition to Airvo and pulmonary pit recorder following planning on bronchoscopy today. Patient is a febrile although continues with an elevated white count and hemoglobin is stable above 8 with no active bleeding noted. Patient is n.p.o. maintained on TPN at this time. Blood sugars continue to be in the 200s consistently and will adjust long-acting and continue sliding scale. 01/01/2024 patient is seen in follow up today and experienced increasing respiratory demands and became more obtunded and unresponsive requiring mechanical ventilation. Patient FiO2 is 50% with a PEEP of 8 and is status post bronchoscopy yesterday. Patient maintained on Levophed and vasopressin along with propofol. White count is elevated and patient is continued on IV antibiotics in the form of vancomycin and Zosyn. Cultures have been sent and pending at this time. Will consult infectious disease and appreciate input and recommendations. Hemoglobin is stable at 7.8 with no active bleeding noted. Potassium 2.7 and magnesium 1.5 along with phosphorus 0.9 and being replaced per protocol. Kidney functions remained stable at this time other than a chloride of 115 and sodium is 142. Patient is also being started on Eraxis. Recommend adjusting TPN per dietary and pharmacy. Overall prognosis remains extremely guarded at this time. 01/02/2024 Patient is evaluated in the intensive care unit he is currently intubated however he is awake alert oriented with eye moving and able to respond with nods to simple questions. Pressor support in the process of being weaned her blood pressure 144/65. Mechanical ventilator with an FiO2 of 50% and a PEEP of . Continues on TPN. Rectal tube in place continues with loose stools. C.Dif was negative. Cultures currently pending. Remains on Antibiotics with IV Zosyn, IV vancomycin as well as IV anidulafungin. Procalcitonin level was mildly elevated at 1.38. X-ray this morning reveals basilar atelectasis on the left as well as right midlung. Has white blood cell count is down to 10.7 today hemoglobin of 8.1. Sodium level is 142, potassium 2.6, BUN of 43 creatinine of 0.68. Magnesium 1.7. Blood glucose in the 150s continues on Levemir twice a day for this. 01/03/2024 Patient is seen in follow-up today remains intubated and discussing possible e xtubation today with pulmonary following scheduled to undergo bronchoscopy as well. Patient is maintained on antibiotics with infectious disease following while awaiting urine cultures as well as sputum culture showing MRSA. Preliminary urine is gram-negative and will continue current antibiotic regimen. Patient remains on low-dose pressor support and attempting to wean. TPN continues and tolerating. Continue to monitor Accu-Cheks and continue current regimen although blood sugars have been a little lower today. Recommend Accu- Cheks before meals and at bedtime and 2 AM. Patient is alert and responding on exam as propofol is off. Patient extremely weak and lethargic and falls asleep during conversation. Patient also appears frustrated as he is unable to communicate due to intubation 01/03. Patient seen and examined. 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 Patient received IV Lasix this morning. No bleeding around the ileostomy site. 01/04. Patient examined. Potassium placement ordered. States he feels better compared to yesterday. Denies any chest pain 01/06/2024 Patient is seen in follow-up continues in the ICU and is currently maintained on nasal cannula and tolerating thus far. Patient continues on TPN with multiple consultations following. Awaiting finalized cultures on repeat sputum culture from most recent bronchoscopy. Patient is afebrile and white count remains normal. Patient is continued on IV antibiotics in the form of Unasyn as well as vancomycin. Patient also continues on low-dose norepinephrine and is being weaned. 01/07/2024 Patient is seen in follow-up today and remains in the ICU and currently has been weaned off of Levophed maintaining blood pressures. Planning for transferring out of the ICU if blood pressure remains stable. Patient is afebrile and continued on IV antibiotics and will continue the same with infectious disease following. White count has normalized and patient is afebrile. Patient continues on TPN and will continue at this time. Patient also continues on 2 L via nasal cannula as well as titrating and weaning as tolerated. Patient using BiPAP intermittently as needed as well. Chest x-ray today showed a stable chest. 01/08/2024 Patient is seen in follow-up today remains off pressor support and awaiting a bed on 3 S. is a downgrade from ICU. Multiple consultations following and awaiting PT/OT therapy evaluation as patient will likely need ECF for continued strength and mobility. Currently working on discharge planning regarding TPN as patient's primary care provider Dr. Ivey has reported she needs to see the patient prior to reinitiating any further orders and previous surgeon from [facility] has refused to sign any future orders regarding TPN. Social work following and have also discussed possible visiting physician to come to the home as patient is mostly bedbound and has supportive care at the home per family. Patient is afebrile with no reports of chest pain or shortness of breath. 01/09/2024 Patient is seen and evaluated in follow-up today and is being moved out of the ICU blood pressure has been stabilized and patient remains off pressor support. Patient evaluated by PT/OT therapy and per social work patient is at baseline and would not qualify for ECF. Patient has extensive wounds of the abdomen along with ostomy care as a BKA and mostly bedbound making it extremely difficult to follow-up at doctors office appointments and has been in and out of the hospital multiple times this last year. Currently attempting to work with primary care provider Dr. Ivey's office as patient is maintained on TPN al though has not been seen and evaluated in her office since February 2023. Patient would need to have an appointment with the provider in the office to reestablish and continue TPN orders. Home care is being arranged and will discuss with case management/social work regarding other options. 01/10/2024 Patient is seen in follow-up today with no acute overnight issues. Multiple consultations following and patient is maintained on TPN. Respiratory status improved and pulmonary has cleared the patient is once cleared by other consultations for discharge home. Patient will continue current regimen for now and will discuss with infectious disease with likely oral antibiotics on discharge. Discussed with Dr. Ivey's office regarding social issues and transportation with making it to appointments and they have agreed to conduct a telehealth visit hopefully for Saturday to continue with TPN orders as well as home care orders. Patient will also need to physically be present for an appointment in the office with Dr. Ivey before February 16, 2024 in order to remain a patient of hers. This was expressed to patient along with family members. 01/11/2024 Patient is seen in follow-up today with multiple consultations following. Patient has a telehealth visit with primary care provider Dr. Ivey on Saturday afternoon working on arranging for discharge planning with home care as well as continued TPN orders. Patient will also be required to physically be present and appointment with Dr. Ivey's office before February for her to continue being his primary care provider. Patient is afebrile tolerating TPN with no acute issues noted. Continue ostomy care and patient will continue on antibiotics with infectious disease following for now. Will discuss further regarding discharge planning if patient will require antibiotics on discharge. 01/12/2024 Patient is seen in follow-up with no acute overnight issues noted. Scheduled to undergo telehealth visit with Dr. Ivey on Saturday and will await to discuss further regarding discharge planning to make sure home care and TPN orders are arranged prior to discharge. Patient will continue on oral Zyvox and Augmentin for 1 week on discharge per ID recommendations. Continue with local wound care and will arrange for outpatient follow-up visit in Dr. Ivey's office before February 2024. Patient is afebrile denies worsening shortness of breath with no reports of chest pain or palpitations. Patient is tolerating TPN. REVIEW OF SYSTEMS: CONSTITUTIONAL: No fever, no malaise,. CARDIOVASCULAR: No chest pain, no palpitations, no syncope. PULMONARY: No shortness of breath, no cough, GASTROINTESTINAL: No diarrhea, no nausea, no vomiting, no abdominal pain. NEUROLOGICAL: No headaches, reports generalized weakness PHYSICAL EXAMINATION: GENERAL: The patient is alert and oriented x3, ill looking, elderly appearing, obese HEENT: Pupils are round and equally reacting to light. EOMI. No scleral icterus. No conjunctival pallor. Normocephalic, atraumatic. No pharyngeal erythema. No thyromegaly. CARDIOVASCULAR: S1 and S2 present. No murmurs, rubs, or gallops. PULMONARY: Diminished breath sound the bases bilaterally with some scattered rhonchi and bronchial congestion noted. ABDOMEN: Soft, nontender, nondistended,. Ostomy seen MUSCULOSKELETAL: No joint swelling or deformity. Right BKA EXTREMITIES: No cyanosis, clubbing, or pedal edema. NEUROLOGICAL: Gross neurological examination did not reveal any focal deficits. Diffusely weak SKIN: No rashes. Pale Assessment: Hypotension with hypotensive shock requiring pressor support likely secondary to acute GI bleed and hypovolemia Acute GI bleed from the ostomy secondary to an abdominal wall extravasation near the ostomy requiring sutures and cauterization 12/30/2023, resolved Acute blood loss anemia secondary to above acute kidney injury secondary to hypotension acute urinary tract infection, secondary to indwelling Medina catheter, while inpatient. 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 Case management following and plan will be to return home on discharge as patient is baseline and would not qualify for ECF for rehab. Currently working with Dr. Ivey's office and a telehealth visit has been arranged for Saturday. That was approved by their office to be able to continue with home care orders as well as TPN orders. Patient also must physically make an appointment in her office before February 15 or patient will be discharged from the practice. Patient has not been seen since February 2023. Case management following and assisting with a telehealth visit for Saturday to arrange for discharge planning. Multiple consultations following and patient will continue on IV antibiotics with infectious disease following. Per infectious disease, patient will continue on oral Zyvox and Augmentin for 1 week on discharge as urine cultures and sputum culture showing Klebsiella Continue TPN with dietary consult. Case management also providing resources in regards to visiting physicians if patient is unable to make it to Dr. Ivey's office before February 15. Pulmonary following recommend to continue with current regimen and patient is status post bronchoscopy with repeat bronchoscopy culture showing Klebsiella pneumonia and Bella glabrata from the aspirate on the left. Repeat blood culture remain negative Continue to monitor blood sugars closely and noted patient has had decreased blood sugar readings and will adjust insulins and continue with sliding scale and decrease long-acting for now Possible discharge planning early next week. Await telehealth visit on Saturday Due to multiple complex medical issues, overall prognosis is guarded The impression and plan of care has been dictated by Alyssa Hernandez, Nurse Practitioner as directed. Dr. Vicente MD I have performed a history and examination and MDM of this patient, discussed the same with the dictator, and agree with the dictator's assessment and plan as written ,documented as a scribe. Based on total visit time, I have performed more than 50% of the visit. Objective - Vital Signs Vital signs: Vital Signs Temp 99.4 F 01/13/24 01:34 Pulse 89 01/13/24 01:34 Resp 17 01/13/24 01:34 BP 127/72 01/13/24 01:34 Pulse Ox 99 01/13/24 01:34 FiO2 40 01/13/24 04:57 Intake & Output 01/12/24 01/12/24 01/13/24 06:59 18:59 06:59 Intake Total 1005 Output Total 2250 1450 2800 Balance -2250 -1450 -1795 Weight 114.4 kg Intake: Intake, IV Titration 1005 Amount Sodium Chloride 4Meq/ml 1005 Vial 20 meq In Amino Acid 5%-D20w+Lytes*E* 1,000 ml @ 98 mls/hr IV .BY DURATION [facility] Rx#: [id number] Output: Urine 650 1100 Stool 1600 1450 1700 Other: Voiding Method External Catheter External Catheter External Catheter ABP, PAP, CO, CI - Last Documented Arterial Blood Pressure 108/54 - Labs CBC & Chem 7: 01/07/24 05:23 01/12/24 06:16 Labs: Abnormal Lab Results - Last 24 Hours (Table) 01/12/24 01/12/24 01/12/24 Range/Units 06:16 06:47 11:25 Creatinine 0.55 L (0.66-1.25) mg/dL Glucose 124 H (74-99) mg/dL POC Glucose (mg/dL) 132 H 141 H (70-110) mg/dL Triglycerides 174.00 H (0.00-149.00) mg/dL 01/12/24 01/12/24 Range/Units 16:31 23:57 Creatinine (0.66-1.25) mg/dL Glucose (74-99) mg/dL POC Glucose (mg/dL) 156 H 151 H (70-110) mg/dL Triglycerides (0.00-149.00) mg/dL
[2024-01-13 06:44] LABS: Glucose,Whole Blood 158 mg/dL (70-110)
[2024-01-13 07:27] LABS: African American GFR (CKD) >90 (>60 ml/min/1.73 sqM); Anion Gap 3 mmol/L; Blood Urea Nitrogen 18 mg/dL (9-20); Calcium 8.3 mg/dL (8.4-10.2); Carbon Dioxide 31 mmol/L (22-30); Chloride 103 mmol/L (98-107); Glucose 151 mg/dL (74-99); Magnesium 1.7 mg/dL (1.6-2.3); Non-African American GFR(CKD) >90 (>60 ml/min/1.73 sqM); Potassium 3.9 mmol/L (3.5-5.1); Sodium 137 mmol/L (137-145)
[2024-01-13 11:43] LABS: Glucose,Whole Blood 150 mg/dL (70-110)
--- NOTE | 2024-01-13 12:37 | P.PN ---
Subjective Progress Note Date: 01/13/24 Principal diagnosis: Reason for follow-up is sepsis UTI/pneumonia Patient is a 48-year-old male with a past medical history difficult for CVA TIA DVT did have a history of Crohn's disease with bowel perforation requiring ileostomy and also have a enterocutaneous fistula patient initially presentation to the hospital was weakness not feeling well subsequent did have w orsening of the respiratory status requiring intubation did have a fever concerning for possible pneumonia. On today's evaluation that is 01/13/2024, patient has been afebrile, patient is breathing comfortably and is currently on 3 L nasal cannula oxygen, patient denies having any significant cough no chest pain, patient denies nausea vomiting or abdominal pain. Patient did have a creatinine 0.50 no CBC was done today Objective - Vital Signs Vital signs: Vital Signs Temp 99.4 F 01/13/24 01:34 Pulse 88 01/13/24 11:39 Resp 18 01/13/24 06:42 BP 101/55 01/13/24 06:42 Pulse Ox 99 01/13/24 06:42 FiO2 40 01/13/24 07:55 Intake & Output 01/12/24 01/13/24 01/13/24 18:59 06:59 18:59 Intake Total 1005 Output Total 1450 2800 Balance -1450 -1795 Weight 112.5 kg Intake: Intake, IV Titration 1005 Amount Sodium Chloride 4Meq/ml 1005 Vial 20 meq In Amino Acid 5%-D20w+Lytes*E* 1,000 ml @ 98 mls/hr IV .BY DURATION [facility] Rx#: [id number] Output: Urine 1100 Stool 1450 1700 Other: Voiding Method External Catheter External Catheter External Catheter ABP, PAP, CO, CI - Last Documented Arterial Blood Pressure 108/54 - Exam GENERAL DESCRIPTION: Middle-age male lying in bed in no distress RESPIRATORY SYSTEM: Unlabored breathing , decreased breath sounds at bases HEART: S1 S2 regular rate and rhythm , ABDOMEN: Soft , no tenderness EXTREMITIES: Diffuse swelling to the leg no redness, 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 - Labs CBC & Chem 7: 01/07/24 05:23 01/13/24 06:53 Labs: Abnormal Lab Results - Last 24 Hours (Table) 01/12/24 01/12/24 01/13/24 Range/Units 16:31 23:57 06:42 Carbon Dioxide (22-30) mmol/L Creatinine (0.66-1.25) mg/dL Glucose (74-99) mg/dL POC Glucose (mg/dL) 156 H 151 H 158 H (70-110) mg/dL Calcium (8.4-10.2) mg/dL 01/13/24 01/13/24 Range/Units 06:53 11:42 Carbon Dioxide 31 H (22-30) mmol/L Creatinine 0.50 L (0.66-1.25) mg/dL Glucose 151 H (74-99) mg/dL POC Glucose (mg/dL) 150 H (70-110) mg/dL Calcium 8.3 L (8.4-10.2) mg/dL Microbiology - Last 24 Hours (Table) 12/31/23 14:00 Acid Fast Bacilli Smear - Preliminary Bronchoalviolar Lavage - Left Acid Fast Bacilli Culture - Preliminary Assessment and Plan (1) Pneumonia Current Visit: Yes Status: Acute Code(s): J18.9 - PNEUMONIA, UNSPECIFIED ORGANISM SNOMED Code(s): 500062825 (2) Sepsis Current Visit: No Status: Acute Code(s): A41.9 - SEPSIS, UNSPECIFIED ORGANISM SNOMED Code(s): 08115581 Plan: 1patient with sepsis/septic shock in this patient who did have a fever elevated white count high clinical suspicion of possible left lower lobe pneumonia in this patient who did have multiple comorbidities and complicated intra-abdominal history with history of bowel perforation and did have ileostomy and enterocutaneous fistula keeping in mind the patient has been in and out of the hospital we will need to cover for the resistant gram-positive as well as gram- negative pathogen 2-patient bronchial culture grew MRSA urine is growing Klebsiella that is sensitive to Unasyn, repeat bronchoscopy cultures are growing Klebsiella and Bella glabrata 3patient did have resolution of his fever and the patient white count normalized 4patient has shown clinical improvement, patient is on vancomycin and Unasyn while inpatient however plan to finish therapy with a week course of oral Zyvox and Augmentin on discharge Dictation was produced using [employer] dictation software. please excuse any grammatical, word or spelling errors. Time with Patient: Less than 30
--- NOTE | 2024-01-13 13:41 | P.PN ---
Subjective Progress Note Date: 01/13/24 On 01/04/2024, the patient is being seen for a follow-up. The patient was weaned off the mechanical ventilator and the patient was extubated to BiPAP and this morning the patient is on 6 L of O2 nasal cannula. Cough remains weak and the patient is unable to bring up much sputum. His early sputum analysis was positive for MRSA. Chest x-ray from today shows a right-sided pleural effusion and atelectatic changes lung base bilaterally. The patient seems to be calm and comfortable and awake and communicating. He is profoundly weak. He remains on norepinephrine which is running at 0.05 mcg/kg/min. Vasopressin was discontinued. IV fluids are currently at KVO. Remains on TPN for nutritional support. Sodium is at 142, potassium 3.6 BUN is 17 with a creatinine of 0.5. CBC still pending for now. The patient remains on Unasyn and vancomycin. Remains on TPN for nutritional support. He is currently off propofol. Ileostomy is functional and there is no evidence of any bleeding from the ileo stomy or the enterocutaneous fistulas. On 01/05/2024, the patient is awake and alert and the patient is currently on a BiPAP is alternating between BiPAP pressures of 12/5 with an FiO2 40% and 40 dis impaction by nasal cannula. Chest x-ray showing atelectasis and possibly development of right-sided pleural effusion. The patient was given diuretics yesterday and the patient has diuresed adequately and he has developed hypokalemia. Fluid balance is -2.5 L over the past 24 hours. Urine output is more than 100 cc an hour. Ileostomy output is normal drop 3.7 L over the past 24 hours. Remains on TPN for nutritional support at a rate of 120 cc an hour. The white cell count of 4.3 with a hemoglobin of 8. Sodium is at 146, BUN 16 with a creatinine of 0.5. Potassium level is at 3.2. Serum bicarb is at 32. Awake and alert. Profoundly weak. Communicating. The patient remains on Unasyn and vancomycin. He is currently off pressors. Patient was seen today on 01/06/2024, remains in the ICU, on BiPAP 12/5/40% remains on antibiotics in the form of Unasyn and vancomycin remains on TPN at 120 cc/h. Chest x-ray continues to show atelectasis and small right-sided pleural effusion patient remains on diuretics, and he diuresed adequately. Continues to diurese, and continues to have good urine output. Continues to have significant ileostomy output. Patient remains on TPN for nutritional support. Labs showed WBC count 4.5 hemoglobin 7.9 basic metabolic profile is normal bicarb is 35 renal profile is normal Patient was evaluated on 01/07/2024, remains in the ICU, developed hypotension last night required going back on norepinephrine at 0.05 mcg/kg/min. Today the patient is doing well, his mean arterial pressure is in the 80s, hence I recommended tapering and possibly discontinuation of norepinephrine. Patient was on pressure support 12//50%, today he is on nasal cannula, does not seem to be in distress. He feels fine. His left groin arterial line has been removed. Continues to have significant drainage from his ostomy and fistula in the abdomen, and this is connected to a drainage tube. Patient remains on TPN at 1 of 25 cc/h. Chest x-ray continues to show some limited airspace disease in the right lower lobe, patient tells me today that he feels better than he felt yesterday in spite of requiring norepinephrine and I plan to discontinue WBC count is 7.0 hemoglobin is 8.9. Basic metabolic profile is normal renal profile is normal Was seen today on 01/08/2024 remains in the ICU on 2 L nasal cannula receiving TPN remains on antibiotics intermittently on BiPAP 12/5/40%. Patient is an overflow he needs to go to the floor once a bed becomes available, and we will plan to transfer the patient down to 3 S. Relatively asymptomatic, basic metabolic profile is normal BUN is 22 creatinine 0.47 chest x-ray showing improving perihilar and basilar infiltrates Patient was seen today at, remains in the ICU as an overflow, relatively asymptomatic laying in bed, remains on Unasyn and vancomycin, the plan is to eventually transition the patient to Augmentin and Zyvox when he goes home. Or goes to rehab. Patient had Klebsiella pneumonia in the sputum and he had MRSA, remains on TPN at 130 cc/h, intermittently on BiPAP 12/5/40%, patient seems to be comfortable presently on 2 L nasal cannula and not in distress. And he has no active symptoms labs today were reviewed, he had relatively normal basic metabolic profile and liver profile. BUN however is 2.5. The patient is seen today January 10, 2024 in follow-up on the regular medical floor. He was transferred out of the intensive care unit yesterday. He is currently resting comfortably in bed. Awake and alert in no acute distress. Is maintaining good O2 saturations in the 90s on 2 L/min per nasal cannula. He is afebrile. Hemodynamically stable. Sodium 135. Potassium 4.0. Bicarb 28. BUN 18. Creatinine 0.51. Glucose 109. He remains on Unasyn and vancomycin. Continued on lipids and TPN at 83 mL/h. Lovenox for DVT prophylaxis. Bronchioloalveolar lavage from 12/31/2023 was positive for MRSA, Klebsiella pneumoniae, Bella glabrata, urine was positive for Klebsiella pneumoniae. The patient is seen today January 11, 2024 in follow-up on the regular medical floor. He is awake and alert in no acute distress. He is resting in bed. He denies any worsening shortness of breath, cough or congestion. He is maintaining good O2 saturations up to 100% on 2 L/min per nasal cannula. He is afebrile. Hemodynamically stable. Bronchial wash cultures were positive for Klebsiella pneumoniae. Urine culture was positive for Klebsiella pneumoniae. Previous bronch culture was positive for MRSA. Sodium 137. Potassium 3.9. Bicarb 31. BUN 16. Creatinine 0.59. Glucose 145. Vancomycin trough 15.0. He remains on Unasyn and vancomycin. He is on Lovenox for DVT prophylaxis. TPN and lipids for nutritional support. Seen today January 12, 2024 in follow-up on the regular medical floor. He is resting in bed. Awake and alert in no acute distress. He is maintaining good O2 saturations in the 90s on 2 L/min per nasal cannula. He is afebrile. Hemodynamically stable. That is post 2 units of packed red blood cells this admission. Current hemoglobin 8.9. Bronchial wash cultures were positive for Klebsiella pneumoniae. Urine culture was positive for Klebsiella pneumoniae. Previous bronch culture was positive for MRSA. Sodium 139. Potassium 4.1. Bicarb 30. BUN 18. Creatinine 0.55. Glucose 124. He remains on vancomycin and Unasyn. Being nourished with TPN and lipids. Therapeutic Lovenox. The patient is seen today January 13, 2024 in follow-up on the regular medical floor. He is awake and alert in no acute distress. Resting comfortably in bed. He denies any worsening shortness of breath, cough or congestion. Is maintaining good O2 saturation in the 90s on 3 L/min per nasal cannula. Sodium 137. Potassium 3.9. Bicarb 31. BUN 18. Creatinine 0.50. Glucose 151. Vancomycin level 14.8. And Unasyn. Therapeutic Lovenox. Remains nourished with TPN at 98 mL/h and lipids. Objective - Vital Signs Vital signs: Vital Signs Temp 99.4 F 01/13/24 01:34 Pulse 88 01/13/24 11:39 Resp 18 01/13/24 06:42 BP 101/55 01/13/24 06:42 Pulse Ox 99 01/13/24 06:42 FiO2 40 01/13/24 07:55 Intake & Output 01/12/24 01/13/24 01/13/24 18:59 06:59 18:59 Intake Total 1005 Output Total 1450 2800 Balance -1450 -1795 Weight 112.5 kg Intake: Intake, IV Titration 1005 Amount Sodium Chloride 4Meq/ml 1005 Vial 20 meq In Amino Acid 5%-D20w+Lytes*E* 1,000 ml @ 98 mls/hr IV .BY [facility] Rx#: [id number] Output: Urine 1100 Stool 1450 1700 Other: Voiding Method External Catheter External Catheter External Catheter ABP, PAP, CO, CI - Last Documented Arterial Blood Pressure 108/54 - Exam GENERAL EXAM: Awake, alert, very pleasant 48-year-old male, resting in bed, in no acute distress. On 3 L nasal cannula HEAD: Normocephalic and atraumatic EYES: Normal reaction of pupils, equal size. NOSE: Clear with pink turbinates. THROAT: No erythema or exudates. NECK: No masses, no JVD. CHEST: No chest wall deformity. Left subclavian double-lumen central line LUNGS: Equal air entry with no crackles, wheeze, rhonchi or dullness. CVS: S1 and S2 normal with no audible murmur, regular rhythm. No extra heart sounds ABDOMEN: Ileostomy with brown stool, enterocutaneous fistula noted with stool no evidence of any bleeding. Multiple surgical scars noted throughout the whole abdomen. SKIN: No rashes CENTRAL NERVOUS SYSTEM: Alert and oriented x 3 no gross focal deficit EXTREMITIES: Right BKA, left leg weakness and left foot drop, remaining distal pulses are weak and only found with Doppler. Extremities are showing diminished pulses bilaterally - Labs CBC & Chem 7: 01/07/24 05:23 01/13/24 06:53 Labs: Abnormal Lab Results - Last 24 Hours (Table) 01/12/24 01/12/24 01/13/24 Range/Units 16:31 23:57 06:42 Carbon Dioxide (22-30) mmol/L Creatinine (0.66-1.25) mg/dL Glucose (74-99) mg/dL POC Glucose (mg/dL) 156 H 151 H 158 H (70-110) mg/dL Calcium (8.4-10.2) mg/dL 01/13/24 01/13/24 Range/Units 06:53 11:42 Carbon Dioxide 31 H (22-30) mmol/L Creatinine 0.50 L (0.66-1.25) mg/dL Glucose 151 H (74-99) mg/dL POC Glucose (mg/dL) 150 H (70-110) mg/dL Calcium 8.3 L (8.4-10.2) mg/dL Microbiology - Last 24 Hours (Table) 12/31/23 14:00 Acid Fast Bacilli Smear - Preliminary Bronchoalviolar Lavage - Left Acid Fast Bacilli Culture - Preliminary Assessment and Plan Assessment: Acute hypoxic respiratory failure, with bilateral pneumonia in the lung bases/atelectasis and the bronchial lavage that was done earlier was positive for MRSA Acute blood loss anemia secondary to GI blood losses possible abdominal wall bleeding Tracheostenosis, 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 Under control Recent history of ventilator dependent respiratory failure, secondary to pneumonia, microbiology from BAL positive for haemophilus influenzae History of DVT, on therapeutic dose of Lovenox History of Crohn's disease complicated by bowel perforation status post colectomy and diverting ileostomy. 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 Currently receiving TPN for nutritional support. 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 Number of minutes spent on the visit: 10 Dictation was produced using [employer] dictation software. Please excuse any grammatical, word or spelling errors.
[2024-01-13] MEDS: MAGNESIUM SULFATE-D5W PMX 1 GM in DEXTROSE/WATER 1 100ML.BAG IVPB ONE (15:50)
[2024-01-13] MEDS: 1: MVI, ADULT NO.4 WITH VIT K 10 ML, TRACE (CONC-1ML/DOSE) 1 ML, SODIUM CHLORIDE 4MEQ/ML IV SCH (15:51)
[2024-01-13 17:03] LABS: Glucose,Whole Blood 148 mg/dL (70-110)
[2024-01-14 00:01] LABS: Glucose,Whole Blood 176 mg/dL (70-110)
--- NOTE | 2024-01-14 03:04 | P.PN ---
Subjective Progress Note Date: 01/13/24 This is a pleasant 48 years old male with past medical history of Crohn disease complicated with bowel perforation requiring ileostomy, also has 2 fistula in his anterior abdominal Wall, patient also has left upper chest portal to receive TPN who was only discharged yesterday after being admitted to the hospital for pneumonia and respiratory failure was discharged yesterday in stable condition. Patient came back to the ER today because of debility and having issues with his TPN supplies. There has been some issues with primary care appointments and orders with TPN requiring signature from his PCP. At this time patient denies any chest pain or shortness of breath. There was no complaint of fever or chills. Denies any nausea, vomiting, abdominal pain. Denies any lightheaded dizziness. Initial lab work done in the ER showed W6.3, hemoglobin 20.7, platelet count 264, sodium 130, potassium 4.9, BUN 20, creatinine 0.41, phosphorus 2.4, alk phos 133, total protein 9 Patient admitted to internal medicine service 12/26. Patient seen and examined. Complaining of pain in his right hand. D enies any shortness of breath /12. Patient seen and examined. Potassium level this morning was 5.5, patient was getting potassium supplementation, will DC it for now. 12/28. Patient seen and examined. Patient had a rapid response called overnight for low blood pressure, patient was given 2-1/2 L of fluid. Labs on this morning showed WBC 10.4, hemoglobin 14.4, platelet count 420, sodium 124, p otassium 5.5, BUN 104, creatinine 1.59. Ostomy output is blood-tinged. 12/30/2023 Patient continues in the ICU requiring low-dose pressor support and currently being weaned. Multiple consultations following including general surgery and did a washout of the abdomen early this morning along with cauterizing and placing sutures to an area near the ostomy that had been bleeding. Hemoglobin is stable and is being closely monitored with hemoglobins every 6 hours. Transfuse if 7 or less. Patient to continue with strict n.p.o. and is maintained on TPN. Blood sugars have been more elevated and will add long- acting and adjust insulins accordingly 12/31/2023 Patient continues in the ICU with multiple consultations following. Patient requiring increased oxygen demands currently on 6 L and transition to Airvo and pulmonary event coordinator marketing and sales following planning on bronchoscopy today. Patient is a febrile although continues with an elevated white count and hemoglobin is stable above 8 with no active bleeding noted. Patient is n.p.o. maintained on TPN at this time. Blood sugars continue to be in the 200s consistently and will adjust long-acting and continue sliding scale. 01/01/2024 patient is seen in follow up today and experienced increasing respiratory demands and became more obtunded and unresponsive requiring mechanical ventilation. Patient FiO2 is 50% with a PEEP of 8 and is status post bronchoscopy yesterday. Patient maintained on Levophed and vasopressin along with propofol. White count is elevated and patient is continued on IV antibiotics in the form of vancomycin and Zosyn. Cultures have been sent and pending at this time. Will consult infectious disease and appreciate input and recommendations. Hemoglobin is stable at 7.8 with no active bleeding noted. Potassium 2.7 and magnesium 1.5 along with phosphorus 0.9 and being replaced per protocol. Kidney functions remained stable at this time other than a chloride of 115 and sodium is 142. Patient is also being started on Eraxis. Recommend adjusting TPN per dietary and pharmacy. Overall prognosis remains extremely guarded at this time. 01/02/2024 Patient is evaluated in the intensive care unit he is currently intubated however he is awake alert oriented with eye moving and able to respond with nods to simple questions. Pressor support in the process of being weaned her blood pressure 144/65. Mechanical ventilator with an FiO2 of 50% and a PEEP of . Continues on TPN. Rectal tube in place continues with loose stools. C.Dif was negative. Cultures currently pending. Remains on Antibiotics with IV Zosyn, IV vancomycin as well as IV anidulafungin. Procalcitonin level was mildly elevated at 1.38. X-ray this morning reveals basilar atelectasis on the left as well as right midlung. Has white blood cell count is down to 10.7 today hemoglobin of 8.1. Sodium level is 142, potassium 2.6, BUN of 43 creatinine of 0.68. Magnesium 1.7. Blood glucose in the 150s continues on Levemir twice a day for this. 01/03/2024 Patient is seen in follow-up today remains intubated and discussing possible e xtubation today with pulmonary following scheduled to undergo bronchoscopy as well. Patient is maintained on antibiotics with infectious disease following while awaiting urine cultures as well as sputum culture showing MRSA. Preliminary urine is gram-negative and will continue current antibiotic regimen. Patient remains on low-dose pressor support and attempting to wean. TPN continues and tolerating. Continue to monitor Accu-Cheks and continue current regimen although blood sugars have been a little lower today. Recommend Accu- Cheks before meals and at bedtime and 2 AM. Patient is alert and responding on exam as propofol is off. Patient extremely weak and lethargic and falls asleep during conversation. Patient also appears frustrated as he is unable to communicate due to intubation 01/03. Patient seen and examined. 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 Patient received IV Lasix this morning. No bleeding around the ileostomy site. 01/04. Patient examined. Potassium placement ordered. States he feels better compared to yesterday. Denies any chest pain 01/06/2024 Patient is seen in follow-up continues in the ICU and is currently maintained on nasal cannula and tolerating thus far. Patient continues on TPN with multiple consultations following. Awaiting finalized cultures on repeat sputum culture from most recent bronchoscopy. Patient is afebrile and white count remains normal. Patient is continued on IV antibiotics in the form of Unasyn as well as vancomycin. Patient also continues on low-dose norepinephrine and is being weaned. 01/07/2024 Patient is seen in follow-up today and remains in the ICU and currently has been weaned off of Levophed maintaining blood pressures. Planning for transferring out of the ICU if blood pressure remains stable. Patient is afebrile and continued on IV antibiotics and will continue the same with infectious disease following. White count has normalized and patient is afebrile. Patient continues on TPN and will continue at this time. Patient also continues on 2 L via nasal cannula as well as titrating and weaning as tolerated. Patient using BiPAP intermittently as needed as well. Chest x-ray today showed a stable chest. 01/08/2024 Patient is seen in follow-up today remains off pressor support and awaiting a bed on 3 S. is a downgrade from ICU. Multiple consultations following and awaiting PT/OT therapy evaluation as patient will likely need ECF for continued strength and mobility. Currently working on discharge planning regarding TPN as patient's primary care provider Dr. Ivey has reported she needs to see the patient prior to reinitiating any further orders and previous surgeon from [facility] has refused to sign any future orders regarding TPN. Social work following and have also discussed possible visiting physician to come to the home as patient is mostly bedbound and has supportive care at the home per family. Patient is afebrile with no reports of chest pain or shortness of breath. 01/09/2024 Patient is seen and evaluated in follow-up today and is being moved out of the ICU blood pressure has been stabilized and patient remains off pressor support. Patient evaluated by PT/OT therapy and per social work patient is at baseline and would not qualify for ECF. Patient has extensive wounds of the abdomen along with ostomy care as a BKA and mostly bedbound making it extremely difficult to follow-up at doctors office appointments and has been in and out of the hospital multiple times this last year. Currently attempting to work with primary care provider Dr. Ivey's office as patient is maintained on TPN al though has not been seen and evaluated in her office since February 2023. Patient would need to have an appointment with the provider in the office to reestablish and continue TPN orders. Home care is being arranged and will discuss with case management/social work regarding other options. 01/10/2024 Patient is seen in follow-up today with no acute overnight issues. Multiple consultations following and patient is maintained on TPN. Respiratory status improved and pulmonary has cleared the patient is once cleared by other consultations for discharge home. Patient will continue current regimen for now and will discuss with infectious disease with likely oral antibiotics on discharge. Discussed with Dr. Ivey's office regarding social issues and transportation with making it to appointments and they have agreed to conduct a telehealth visit hopefully for Saturday to continue with TPN orders as well as home care orders. Patient will also need to physically be present for an appointment in the office with Dr. Ivey before February 16, 2024 in order to remain a patient of hers. This was expressed to patient along with family members. 01/11/2024 Patient is seen in follow-up today with multiple consultations following. Patient has a telehealth visit with primary care provider Dr. Ivey on Saturday afternoon working on arranging for discharge planning with home care as well as continued TPN orders. Patient will also be required to physically be present and appointment with Dr. Ivey's office before February for her to continue being his primary care provider. Patient is afebrile tolerating TPN with no acute issues noted. Continue ostomy care and patient will continue on antibiotics with infectious disease following for now. Will discuss further regarding discharge planning if patient will require antibiotics on discharge. 01/12/2024 Patient is seen in follow-up with no acute overnight issues noted. Scheduled to undergo telehealth visit with Dr. Ivey on Saturday and will await to discuss further regarding discharge planning to make sure home care and TPN orders are arranged prior to discharge. Patient will continue on oral Zyvox and Augmentin for 1 week on discharge per ID recommendations. Continue with local wound care and will arrange for outpatient follow-up visit in Dr. Ivey's office before February 2024. Patient is afebrile denies worsening shortness of breath with no reports of chest pain or palpitations. Patient is tolerating TPN. 01/13/2024 Patient is seen in follow-up today scheduled to undergo telehealth visit with primary care provider today to ensure home care orders are signed along with TPN. Patient also is required to physically be in Dr. Ivey office for a follow-up appointment prior to February 15. Patient is maintained on IV antibiotics per ID and will be going home on a week of oral Avelox and Augmentin on discharge. Patient has been cleared by consultations for discharge home and will arrange for discharge planning in the next 24 hours REVIEW OF SYSTEMS: CONSTITUTIONAL: No fever, no malaise,. CARDIOVASCULAR: No chest pain, no palpitations, no syncope. PULMONARY: No shortness of breath, no cough, GASTROINTESTINAL: No diarrhea, no nausea, no vomiting, no abdominal pain. NEUROLOGICAL: No headaches, reports generalized weakness PHYSICAL EXAMINATION: GENERAL: The patient is alert and oriented x3, ill looking, elderly appearing, obese HEENT: Pupils are round and equally reacting to light. EOMI. No scleral icterus. No conjunctival pallor. Normocephalic, atraumatic. No pharyngeal erythema. No thyromegaly. CARDIOVASCULAR: S1 and S2 muffled PULMONARY: Diminished breath sound the bases bilaterally with some scattered rhonchi and bronchial congestion noted. ABDOMEN: Soft, nontender, nondistended,. Ostomy seen MUSCULOSKELETAL: No joint swelling or deformity. Right BKA EXTREMITIES: No cyanosis, clubbing, or pedal edema. NEUROLOGICAL: Gross neurological examination did not reveal any focal deficits. Diffusely weak SKIN: No rashes. Pale Assessment: Hypotension with hypotensive shock requiring pressor support likely secondary to acute GI bleed and hypovolemia Acute GI bleed from the ostomy secondary to an abdominal wall extravasation near the ostomy requiring sutures and cauterization 12/30/2023, resolved Acute blood loss anemia secondary to above acute kidney injury secondary to hypotension acute urinary tract infection, secondary to indwelling Medina catheter, while inpatient. 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 Case management following and plan will be to return home on discharge as patient is baseline and would not qualify for ECF for rehab. Patient had telehealth visit with Dr. Ivey to ensure home care orders as well as TPN orders being resumed. Per Dr. Ivey's office, patient also must physically make an appointment in her office before February 15 or patient will be discharged from the practice. Patient has not been seen since February 2023. Multiple consultations following and patient will continue on IV antibiotics with infectious disease following. Per infectious disease, patient will continue on oral Zyvox and Augmentin for 1 week on discharge as urine cultures and sputum culture showing Klebsiella Continue TPN with dietary consult. Case management also providing resources in regards to visiting physicians if patient is unable to make it to Dr. Ivey's office before February 15. Continue to monitor blood sugars closely and noted patient has had decreased blood sugar readings and will adjust insulins and continue with sliding scale and decrease long-acting for now Possible discharge planning in the next 24 hours Due to multiple complex medical issues, overall prognosis is guarded The impression and plan of care has been dictated by Alyssa Hernandez, Nurse Practitioner as directed. Dr. Vicente MD I have performed a history and examination and MDM of this patient, discussed the same with the dictator, and agree with the dictator's assessment and plan as written ,documented as a scribe. Based on total visit time, I have performed more than 50% of the visit. Objective - Vital Signs Vital signs: Vital Signs Temp 99.4 F 01/13/24 01:34 Pulse 88 01/13/24 11:39 Resp 18 01/13/24 06:42 BP 101/55 01/13/24 06:42 Pulse Ox 99 01/13/24 06:42 FiO2 40 01/13/24 07:55 Intake & Output 01/12/24 01/13/24 01/13/24 18:59 06:59 18:59 Intake Total 1005 Output Total 1450 2800 Balance -1450 -1795 Weight 112.5 kg 112.5 kg Intake: Intake, IV Titration 1005 Amount Sodium Chloride 4Meq/ml 1005 Vial 20 meq In Amino Acid 5%-D20w+Lytes*E* 1,000 ml @ 98 mls/hr IV .[facility] Rx#: [id number] Output: Urine 1100 Stool 1450 1700 Other: Voiding Method External Catheter External Catheter External Catheter ABP, PAP, CO, CI - Last Documented Arterial Blood Pressure 108/54 - Labs CBC & Chem 7: 01/07/24 05:23 01/13/24 06:53 Labs: Abnormal Lab Results - Last 24 Hours (Table) 01/12/24 01/12/24 01/13/24 Range/Units 16:31 23:57 06:42 Carbon Dioxide (22-30) mmol/L Creatinine (0.66-1.25) mg/dL Glucose (74-99) mg/dL POC Glucose (mg/dL) 156 H 151 H 158 H (70-110) mg/dL Calcium (8.4-10.2) mg/dL 01/13/24 01/13/24 Range/Units 06:53 11:42 Carbon Dioxide 31 H (22-30) mmol/L Creatinine 0.50 L (0.66-1.25) mg/dL Glucose 151 H (74-99) mg/dL POC Glucose (mg/dL) 150 H (70-110) mg/dL Calcium 8.3 L (8.4-10.2) mg/dL Microbiology - Last 24 Hours (Table) 12/31/23 14:00 Acid Fast Bacilli Smear - Preliminary Bronchoalviolar Lavage - Left Acid Fast Bacilli Culture - Preliminary
[2024-01-14 06:25] LABS: Glucose,Whole Blood 152 mg/dL (70-110)
[2024-01-14 07:02] LABS: Ionized Calcium 4.9 mg/dL (4.5-5.3)
[2024-01-14 07:06] LABS: African American GFR (CKD) >90 (>60 ml/min/1.73 sqM); Anion Gap 1 mmol/L; Blood Urea Nitrogen 18 mg/dL (9-20); Calcium 8.3 mg/dL (8.4-10.2); Carbon Dioxide 31 mmol/L (22-30); Chloride 104 mmol/L (98-107); Glucose 145 mg/dL (74-99); Magnesium 2.1 mg/dL (1.6-2.3); Non-African American GFR(CKD) >90 (>60 ml/min/1.73 sqM); Phosphorus 3.3 mg/dL (2.5-4.5); Potassium 4.5 mmol/L (3.5-5.1); Sodium 136 mmol/L (137-145)
[2024-01-14 11:40] LABS: Glucose,Whole Blood 152 mg/dL (70-110)
--- NOTE | 2024-01-14 12:35 | P.PN ---
Subjective Progress Note Date: 01/14/24 On 01/04/2024, the patient is being seen for a follow-up. The patient was weaned off the mechanical ventilator and the patient was extubated to BiPAP and this morning the patient is on 6 L of O2 nasal cannula. Cough remains weak and the patient is unable to bring up much sputum. His early sputum analysis was positive for MRSA. Chest x-ray from today shows a right-sided pleural effusion and atelectatic changes lung base bilaterally. The patient seems to be calm and comfortable and awake and communicating. He is profoundly weak. He remains on norepinephrine which is running at 0.05 mcg/kg/min. Vasopressin was discontinued. IV fluids are currently at KVO. Remains on TPN for nutritional support. Sodium is at 142, potassium 3.6 BUN is 17 with a creatinine of 0.5. CBC still pending for now. The patient remains on Unasyn and vancomycin. Remains on TPN for nutritional support. He is currently off propofol. Ileostomy is functional and there is no evidence of any bleeding from the ileo stomy or the enterocutaneous fistulas. On 01/05/2024, the patient is awake and alert and the patient is currently on a BiPAP is alternating between BiPAP pressures of 12/5 with an FiO2 40% and 40 dis impaction by nasal cannula. Chest x-ray showing atelectasis and possibly development of right-sided pleural effusion. The patient was given diuretics yesterday and the patient has diuresed adequately and he has developed hypokalemia. Fluid balance is -2.5 L over the past 24 hours. Urine output is more than 100 cc an hour. Ileostomy output is normal drop 3.7 L over the past 24 hours. Remains on TPN for nutritional support at a rate of 120 cc an hour. The white cell count of 4.3 with a hemoglobin of 8. Sodium is at 146, BUN 16 with a creatinine of 0.5. Potassium level is at 3.2. Serum bicarb is at 32. Awake and alert. Profoundly weak. Communicating. The patient remains on Unasyn and vancomycin. He is currently off pressors. Patient was seen today on 01/06/2024, remains in the ICU, on BiPAP 12/5/40% remains on antibiotics in the form of Unasyn and vancomycin remains on TPN at 120 cc/h. Chest x-ray continues to show atelectasis and small right-sided pleural effusion patient remains on diuretics, and he diuresed adequately. Continues to diurese, and continues to have good urine output. Continues to have significant ileostomy output. Patient remains on TPN for nutritional support. Labs showed WBC count 4.5 hemoglobin 7.9 basic metabolic profile is normal bicarb is 35 renal profile is normal Patient was evaluated on 01/07/2024, remains in the ICU, developed hypotension last night required going back on norepinephrine at 0.05 mcg/kg/min. Today the patient is doing well, his mean arterial pressure is in the 80s, hence I recommended tapering and possibly discontinuation of norepinephrine. Patient was on pressure support 12//50%, today he is on nasal cannula, does not seem to be in distress. He feels fine. His left groin arterial line has been removed. Continues to have significant drainage from his ostomy and fistula in the abdomen, and this is connected to a drainage tube. Patient remains on TPN at 1 of 25 cc/h. Chest x-ray continues to show some limited airspace disease in the right lower lobe, patient tells me today that he feels better than he felt yesterday in spite of requiring norepinephrine and I plan to discontinue WBC count is 7.0 hemoglobin is 8.9. Basic metabolic profile is normal renal profile is normal Was seen today on 01/08/2024 remains in the ICU on 2 L nasal cannula receiving TPN remains on antibiotics intermittently on BiPAP 12/5/40%. Patient is an overflow he needs to go to the floor once a bed becomes available, and we will plan to transfer the patient down to 3 S. Relatively asymptomatic, basic metabolic profile is normal BUN is 22 creatinine 0.47 chest x-ray showing improving perihilar and basilar infiltrates Patient was seen today at, remains in the ICU as an overflow, relatively asymptomatic laying in bed, remains on Unasyn and vancomycin, the plan is to eventually transition the patient to Augmentin and Zyvox when he goes home. Or goes to rehab. Patient had Klebsiella pneumonia in the sputum and he had MRSA, remains on TPN at 130 cc/h, intermittently on BiPAP 12/5/40%, patient seems to be comfortable presently on 2 L nasal cannula and not in distress. And he has no active symptoms labs today were reviewed, he had relatively normal basic metabolic profile and liver profile. BUN however is 2.5. The patient is seen today January 10, 2024 in follow-up on the regular medical floor. He was transferred out of the intensive care unit yesterday. He is currently resting comfortably in bed. Awake and alert in no acute distress. Is maintaining good O2 saturations in the 90s on 2 L/min per nasal cannula. He is afebrile. Hemodynamically stable. Sodium 135. Potassium 4.0. Bicarb 28. BUN 18. Creatinine 0.51. Glucose 109. He remains on Unasyn and vancomycin. Continued on lipids and TPN at 83 mL/h. Lovenox for DVT prophylaxis. Bronchioloalveolar lavage from 12/31/2023 was positive for MRSA, Klebsiella pneumoniae, Bella glabrata, urine was positive for Klebsiella pneumoniae. The patient is seen today January 11, 2024 in follow-up on the regular medical floor. He is awake and alert in no acute distress. He is resting in bed. He denies any worsening shortness of breath, cough or congestion. He is maintaining good O2 saturations up to 100% on 2 L/min per nasal cannula. He is afebrile. Hemodynamically stable. Bronchial wash cultures were positive for Klebsiella pneumoniae. Urine culture was positive for Klebsiella pneumoniae. Previous bronch culture was positive for MRSA. Sodium 137. Potassium 3.9. Bicarb 31. BUN 16. Creatinine 0.59. Glucose 145. Vancomycin trough 15.0. He remains on Unasyn and vancomycin. He is on Lovenox for DVT prophylaxis. TPN and lipids for nutritional support. Seen today January 12, 2024 in follow-up on the regular medical floor. He is resting in bed. Awake and alert in no acute distress. He is maintaining good O2 saturations in the 90s on 2 L/min per nasal cannula. He is afebrile. Hemodynamically stable. That is post 2 units of packed red blood cells this admission. Current hemoglobin 8.9. Bronchial wash cultures were positive for Klebsiella pneumoniae. Urine culture was positive for Klebsiella pneumoniae. Previous bronch culture was positive for MRSA. Sodium 139. Potassium 4.1. Bicarb 30. BUN 18. Creatinine 0.55. Glucose 124. He remains on vancomycin and Unasyn. Being nourished with TPN and lipids. Therapeutic Lovenox. The patient is seen today January 13, 2024 in follow-up on the regular medical floor. He is awake and alert in no acute distress. Resting comfortably in bed. He denies any worsening shortness of breath, cough or congestion. Is maintaining good O2 saturation in the 90s on 3 L/min per nasal cannula. Sodium 137. Potassium 3.9. Bicarb 31. BUN 18. Creatinine 0.50. Glucose 151. Vancomycin level 14.8. And Unasyn. Therapeutic Lovenox. Remains nourished with TPN at 98 mL/h and lipids. The patient is seen today January 14 2024 in follow-up on the regular medical floor. He is resting comfortably in bed. Awake and alert in no acute distress. He denies any worsening shortness of breath, cough or congestion. He is maintaining good O2 saturations in the 90s on 3 L/min per per minute per nasal cannula. He is receiving TPN at 98 mL/h. Receives lipids Sundays. Therapeutic Lovenox. He is continued on vancomycin and Unasyn. Sodium 136. Potassium 4.5. Bicarb 31. BUN 18. Creatinine 0.43. Glucose 152. Objective - Vital Signs Vital signs: Vital Signs Temp 98.1 F 01/14/24 08:00 Pulse 84 01/14/24 08:00 Resp 16 01/14/24 08:00 BP 125/70 01/14/24 08:00 Pulse Ox 98 01/14/24 02:40 FiO2 40 01/14/24 04:36 Intake & Output 01/13/24 01/14/24 01/14/24 18:59 06:59 18:59 Intake Total 2175 118 Output Total 2600 3950 Balance -2600 -1775 118 Weight 112.5 kg Intake: Oral 2175 118 Output: Urine 1200 550 Stool 1400 3400 Other: Voiding Method External Catheter External Catheter ABP, PAP, CO, CI - Last Documented Arterial Blood Pressure 108/54 - Exam GENERAL EXAM: Awake, pleasant 48-year-old male, in no acute distress. On 3 L nasal cannula HEAD: Normocephalic and atraumatic EYES: Normal reaction of pupils, equal size. NOSE: Clear with pink turbinates. THROAT: No erythema or exudates. NECK: No masses, no JVD. CHEST: No chest wall deformity. Left subclavian double-lumen central line LUNGS: Equal air entry with no crackles, wheeze, rhonchi or dullness. CVS: S1 and S2 normal with no audible murmur, regular rhythm. No extra heart sounds ABDOMEN: Ileostomy with brown stool, enterocutaneous fistula noted with stool no evidence of any bleeding. Multiple surgical scars noted throughout the whole abdomen. SKIN: No rashes CENTRAL NERVOUS SYSTEM: Alert and oriented x 3 no gross focal deficit EXTREMITIES: Right BKA, left leg weakness and left foot drop, remaining distal pulses are weak and only found with Doppler. Extremities are showing diminished pulses bilaterally - Labs CBC & Chem 7: 01/07/24 05:23 01/14/24 06:24 Labs: Abnormal Lab Results - Last 24 Hours (Table) 01/13/24 01/13/24 01/14/24 Range/Units 17:01 23:56 06:22 Sodium (137-145) mmol/L Carbon Dioxide (22-30) mmol/L Creatinine (0.66-1.25) mg/dL Glucose (74-99) mg/dL POC Glucose (mg/dL) 148 H 176 H 152 H (70-110) mg/dL Calcium (8.4-10.2) mg/dL 01/14/24 01/14/24 Range/Units 06:24 11:39 Sodium 136 L (137-145) mmol/L Carbon Dioxide 31 H (22-30) mmol/L Creatinine 0.43 L (0.66-1.25) mg/dL Glucose 145 H (74-99) mg/dL POC Glucose (mg/dL) 152 H (70-110) mg/dL Calcium 8.3 L (8.4-10.2) mg/dL Assessment and Plan Assessment: Acute hypoxic respiratory failure, with bilateral pneumonia in the lung bases/atelectasis and the bronchial lavage was positive for MRSA and Klebsiella pneumonia Acute blood loss anemia secondary to GI blood losses possible abdominal wall bleeding Tracheostenosis, 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 Under control Recent history of ventilator dependent respiratory failure, secondary to pneumonia, microbiology from BAL positive for haemophilus influenzae History of DVT, on therapeutic dose of Lovenox History of Crohn's disease complicated by bowel perforation status post colectomy and diverting ileostomy. 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 Currently receiving TPN for nutritional support. 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 Number of minutes spent on the visit: 10 Dictation was produced using [employer] dictation software. Please excuse any grammatical, word or spelling errors.
--- NOTE | 2024-01-14 13:19 | P.PN ---
Subjective Progress Note Date: 01/14/24 Principal diagnosis: Reason for follow-up is sepsis UTI/pneumonia Patient is a 48-year-old male with a past medical history difficult for CVA TIA DVT did have a history of Crohn's disease with bowel perforation requiring ileostomy and also have a enterocutaneous fistula patient initially presentation to the hospital was weakness not feeling well subsequent did have w orsening of the respiratory status requiring intubation did have a fever concerning for possible pneumonia. On today's evaluation that is 01/14/2024, Patient is afebrile this morning patient denies having any chest pain shortness of breath did have occasional dry cough, the patient is currently on 3 L current oxygen, patient denies any abdominal pain no nausea no vomiting. Patient did have a creatinine 0.43 Objective - Vital Signs Vital signs: Vital Signs Temp 98.1 F 01/14/24 08:00 Pulse 78 01/14/24 13:12 Resp 16 01/14/24 08:00 BP 125/70 01/14/24 08:00 Pulse Ox 98 01/14/24 02:40 FiO2 40 01/14/24 04:36 Intake & Output 01/13/24 01/14/24 01/14/24 18:59 06:59 18:59 Intake Total 2175 118 Output Total 2600 3950 Balance -2600 -1775 118 Weight 112.5 kg Intake: Oral 2175 118 Output: Urine 1200 550 Stool 1400 3400 Other: Voiding Method External Catheter External Catheter ABP, PAP, CO, CI - Last Documented Arterial Blood Pressure 108/54 - Exam GENERAL DESCRIPTION: Middle-age male lying in bed in no distress RESPIRATORY SYSTEM: Unlabored breathing , decreased breath sounds at bases HEART: S1 S2 regular rate and rhythm , ABDOMEN: Soft , no tenderness EXTREMITIES: Diffuse swelling to the leg no redness, 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 - Labs CBC & Chem 7: 01/07/24 05:23 01/14/24 06:24 Labs: Abnormal Lab Results - Last 24 Hours (Table) 01/13/24 01/13/24 01/14/24 Range/Units 17:01 23:56 06:22 Sodium (137-145) mmol/L Carbon Dioxide (22-30) mmol/L Creatinine (0.66-1.25) mg/dL Glucose (74-99) mg/dL POC Glucose (mg/dL) 148 H 176 H 152 H (70-110) mg/dL Calcium (8.4-10.2) mg/dL 01/14/24 01/14/24 Range/Units 06:24 11:39 Sodium 136 L (137-145) mmol/L Carbon Dioxide 31 H (22-30) mmol/L Creatinine 0.43 L (0.66-1.25) mg/dL Glucose 145 H (74-99) mg/dL POC Glucose (mg/dL) 152 H (70-110) mg/dL Calcium 8.3 L (8.4-10.2) mg/dL Assessment and Plan (1) Pneumonia Current Visit: Yes Status: Acute Code(s): J18.9 - PNEUMONIA, UNSPECIFIED ORGANISM SNOMED Code(s): 243140607 (2) Sepsis Current Visit: No Status: Acute Code(s): A41.9 - SEPSIS, UNSPECIFIED ORGANISM SNOMED Code(s): 56554330 Plan: 1patient with sepsis/septic shock in this patient who did have a fever elevated white count high clinical suspicion of possible left lower lobe pneumonia in this patient who did have multiple comorbidities and complicated intra-abdominal history with history of bowel perforation and did have ileostomy and enterocutaneous fistula keeping in mind the patient has been in and out of the hospital we will need to cover for the resistant gram-positive as well as gram- negative pathogen 2-patient bronchial culture grew MRSA urine is growing Klebsiella that is sensitive to Unasyn, repeat bronchoscopy cultures are growing Klebsiella and Bella glabrata 3patient did have resolution of his fever and the patient white count normalized 4patient currently covered with vancomycin and Unasyn however plan to finish therapy with a 7-day course of oral Zyvox and Augmentin on discharge Dictation was produced using [employer] dictation software. please excuse any grammatical, word or spelling errors. Time with Patient: Less than 30
--- NOTE | 2024-01-14 15:32 | P.PN ---
Subjective Progress Note Date: 01/14/24 This is a pleasant 48 years old male with past medical history of Crohn disease complicated with bowel perforation requiring ileostomy, also has 2 fistula in his anterior abdominal Wall, patient also has left upper chest portal to receive TPN who was only discharged yesterday after being admitted to the hospital for pneumonia and respiratory failure was discharged yesterday in stable condition. Patient came back to the ER today because of debility and having issues with his TPN supplies. There has been some issues with primary care appointments and orders with TPN requiring signature from his PCP. At this time patient denies any chest pain or shortness of breath. There was no complaint of fever or chills. Denies any nausea, vomiting, abdominal pain. Denies any lightheaded dizziness. Initial lab work done in the ER showed W6.3, hemoglobin 20.7, platelet count 264, sodium 130, potassium 4.9, BUN 20, creatinine 0.41, phosphorus 2.4, alk phos 133, total protein 9 Patient admitted to internal medicine service 12/26. Patient seen and examined. Complaining of pain in his right hand. D enies any shortness of breath /12. Patient seen and examined. Potassium level this morning was 5.5, patient was getting potassium supplementation, will DC it for now. 12/28. Patient seen and examined. Patient had a rapid response called overnight for low blood pressure, patient was given 2-1/2 L of fluid. Labs on this morning showed WBC 10.4, hemoglobin 14.4, platelet count 420, sodium 124, p otassium 5.5, BUN 104, creatinine 1.59. Ostomy output is blood-tinged. 12/30/2023 Patient continues in the ICU requiring low-dose pressor support and currently being weaned. Multiple consultations following including general surgery and did a washout of the abdomen early this morning along with cauterizing and placing sutures to an area near the ostomy that had been bleeding. Hemoglobin is stable and is being closely monitored with hemoglobins every 6 hours. Transfuse if 7 or less. Patient to continue with strict n.p.o. and is maintained on TPN. Blood sugars have been more elevated and will add long- acting and adjust insulins accordingly 12/31/2023 Patient continues in the ICU with multiple consultations following. Patient requiring increased oxygen demands currently on 6 L and transition to Airvo and pulmonary applied psychology chair following planning on bronchoscopy today. Patient is a febrile although continues with an elevated white count and hemoglobin is stable above 8 with no active bleeding noted. Patient is n.p.o. maintained on TPN at this time. Blood sugars continue to be in the 200s consistently and will adjust long-acting and continue sliding scale. 01/01/2024 patient is seen in follow up today and experienced increasing respiratory demands and became more obtunded and unresponsive requiring mechanical ventilation. Patient FiO2 is 50% with a PEEP of 8 and is status post bronchoscopy yesterday. Patient maintained on Levophed and vasopressin along with propofol. White count is elevated and patient is continued on IV antibiotics in the form of vancomycin and Zosyn. Cultures have been sent and pending at this time. Will consult infectious disease and appreciate input and recommendations. Hemoglobin is stable at 7.8 with no active bleeding noted. Potassium 2.7 and magnesium 1.5 along with phosphorus 0.9 and being replaced per protocol. Kidney functions remained stable at this time other than a chloride of 115 and sodium is 142. Patient is also being started on Eraxis. Recommend adjusting TPN per dietary and pharmacy. Overall prognosis remains extremely guarded at this time. 01/02/2024 Patient is evaluated in the intensive care unit he is currently intubated however he is awake alert oriented with eye moving and able to respond with nods to simple questions. Pressor support in the process of being weaned her blood pressure 144/65. Mechanical ventilator with an FiO2 of 50% and a PEEP of . Continues on TPN. Rectal tube in place continues with loose stools. C.Dif was negative. Cultures currently pending. Remains on Antibiotics with IV Zosyn, IV vancomycin as well as IV anidulafungin. Procalcitonin level was mildly elevated at 1.38. X-ray this morning reveals basilar atelectasis on the left as well as right midlung. Has white blood cell count is down to 10.7 today hemoglobin of 8.1. Sodium level is 142, potassium 2.6, BUN of 43 creatinine of 0.68. Magnesium 1.7. Blood glucose in the 150s continues on Levemir twice a day for this. 01/03/2024 Patient is seen in follow-up today remains intubated and discussing possible e xtubation today with pulmonary following scheduled to undergo bronchoscopy as well. Patient is maintained on antibiotics with infectious disease following while awaiting urine cultures as well as sputum culture showing MRSA. Preliminary urine is gram-negative and will continue current antibiotic regimen. Patient remains on low-dose pressor support and attempting to wean. TPN continues and tolerating. Continue to monitor Accu-Cheks and continue current regimen although blood sugars have been a little lower today. Recommend Accu- Cheks before meals and at bedtime and 2 AM. Patient is alert and responding on exam as propofol is off. Patient extremely weak and lethargic and falls asleep during conversation. Patient also appears frustrated as he is unable to communicate due to intubation 01/03. Patient seen and examined. 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 Patient received IV Lasix this morning. No bleeding around the ileostomy site. 01/04. Patient examined. Potassium placement ordered. States he feels better compared to yesterday. Denies any chest pain 01/06/2024 Patient is seen in follow-up continues in the ICU and is currently maintained on nasal cannula and tolerating thus far. Patient continues on TPN with multiple consultations following. Awaiting finalized cultures on repeat sputum culture from most recent bronchoscopy. Patient is afebrile and white count remains normal. Patient is continued on IV antibiotics in the form of Unasyn as well as vancomycin. Patient also continues on low-dose norepinephrine and is being weaned. 01/07/2024 Patient is seen in follow-up today and remains in the ICU and currently has been weaned off of Levophed maintaining blood pressures. Planning for transferring out of the ICU if blood pressure remains stable. Patient is afebrile and continued on IV antibiotics and will continue the same with infectious disease following. White count has normalized and patient is afebrile. Patient continues on TPN and will continue at this time. Patient also continues on 2 L via nasal cannula as well as titrating and weaning as tolerated. Patient using BiPAP intermittently as needed as well. Chest x-ray today showed a stable chest. 01/08/2024 Patient is seen in follow-up today remains off pressor support and awaiting a bed on 3 S. is a downgrade from ICU. Multiple consultations following and awaiting PT/OT therapy evaluation as patient will likely need ECF for continued strength and mobility. Currently working on discharge planning regarding TPN as patient's primary care provider Dr. Ivey has reported she needs to see the patient prior to reinitiating any further orders and previous surgeon from [facility] has refused to sign any future orders regarding TPN. Social work following and have also discussed possible visiting physician to come to the home as patient is mostly bedbound and has supportive care at the home per family. Patient is afebrile with no reports of chest pain or shortness of breath. 01/09/2024 Patient is seen and evaluated in follow-up today and is being moved out of the ICU blood pressure has been stabilized and patient remains off pressor support. Patient evaluated by PT/OT therapy and per social work patient is at baseline and would not qualify for ECF. Patient has extensive wounds of the abdomen along with ostomy care as a BKA and mostly bedbound making it extremely difficult to follow-up at doctors office appointments and has been in and out of the hospital multiple times this last year. Currently attempting to work with primary care provider Dr. Ivey's office as patient is maintained on TPN al though has not been seen and evaluated in her office since February 2023. Patient would need to have an appointment with the provider in the office to reestablish and continue TPN orders. Home care is being arranged and will discuss with case management/social work regarding other options. 01/10/2024 Patient is seen in follow-up today with no acute overnight issues. Multiple consultations following and patient is maintained on TPN. Respiratory status improved and pulmonary has cleared the patient is once cleared by other consultations for discharge home. Patient will continue current regimen for now and will discuss with infectious disease with likely oral antibiotics on discharge. Discussed with Dr. Ivey's office regarding social issues and transportation with making it to appointments and they have agreed to conduct a telehealth visit hopefully for Saturday to continue with TPN orders as well as home care orders. Patient will also need to physically be present for an appointment in the office with Dr. Ivey before February 16, 2024 in order to remain a patient of hers. This was expressed to patient along with family members. 01/11/2024 Patient is seen in follow-up today with multiple consultations following. Patient has a telehealth visit with primary care provider Dr. Ivey on Saturday afternoon working on arranging for discharge planning with home care as well as continued TPN orders. Patient will also be required to physically be present and appointment with Dr. Ivey's office before February for her to continue being his primary care provider. Patient is afebrile tolerating TPN with no acute issues noted. Continue ostomy care and patient will continue on antibiotics with infectious disease following for now. Will discuss further regarding discharge planning if patient will require antibiotics on discharge. 01/12/2024 Patient is seen in follow-up with no acute overnight issues noted. Scheduled to undergo telehealth visit with Dr. Ivey on Saturday and will await to discuss further regarding discharge planning to make sure home care and TPN orders are arranged prior to discharge. Patient will continue on oral Zyvox and Augmentin for 1 week on discharge per ID recommendations. Continue with local wound care and will arrange for outpatient follow-up visit in Dr. Ivey's office before February 2024. Patient is afebrile denies worsening shortness of breath with no reports of chest pain or palpitations. Patient is tolerating TPN. 01/13/2024 Patient is seen in follow-up today scheduled to undergo telehealth visit with primary care provider today to ensure home care orders are signed along with TPN. Patient also is required to physically be in Dr. Ivey office for a follow-up appointment prior to February 15. Patient is maintained on IV antibiotics per ID and will be going home on a week of oral Avelox and Augmentin on discharge. Patient has been cleared by consultations for discharge home and will arrange for discharge planning in the next 24 hours 01/14/2024 Patient seen and evaluated in follow-up being scheduled for discharge although infusion company reports they are having difficulty mixing TPN formula and will have to be on 01/15/2024. Patient will be monitored overnight and plan on discharge planning with necessary equipment and supplies to home with home care. Patient will follow-up with primary care provider Dr. Ivey outpatient. REVIEW OF SYSTEMS: CONSTITUTIONAL: No fever, no malaise,. CARDIOVASCULAR: No chest pain, no palpitations, no syncope. PULMONARY: No shortness of breath, no cough, GASTROINTESTINAL: No diarrhea, no nausea, no vomiting, no abdominal pain. NEUROLOGICAL: No headaches, reports generalized weakness PHYSICAL EXAMINATION: GENERAL: The patient is alert and oriented x3, ill looking, elderly appearing, obese HEENT: Pupils are round and equally reacting to light. EOMI. No scleral icterus. No conjunctival pallor. Normocephalic, atraumatic. No pharyngeal erythema. No thyromegaly. CARDIOVASCULAR: S1 and S2 muffled PULMONARY: Diminished breath sound the bases bilaterally with some scattered rhonchi and bronchial congestion noted. ABDOMEN: Soft, nontender, nondistended,. Ostomy seen MUSCULOSKELETAL: No joint swelling or deformity. Right BKA EXTREMITIES: No cyanosis, clubbing, or pedal edema. NEUROLOGICAL: Gross neurological examination did not reveal any focal deficits. Diffusely weak SKIN: No rashes. Pale Assessment: Hypotension with hypotensive shock requiring pressor support likely secondary to acute GI bleed and hypovolemia Acute GI bleed from the ostomy secondary to an abdominal wall extravasation near the ostomy requiring sutures and cauterization 12/30/2023, resolved Acute blood loss anemia secondary to above acute kidney injury secondary to hypotension acute urinary tract infection, secondary to indwelling Medina catheter, while inpatient. 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 Case management following and plan will be to return home on discharge as patient is baseline and would not qualify for ECF for rehab. Patient had telehealth visit with Dr. Ivey to ensure home care orders as well as TPN orders being resumed. TPN infusion company will arrange for shipment to the home on 01/15/2024. Per Dr. Ivey's office, patient also must physically make an appointment in her office before February 15 or patient will be discharged from the practice. Patient has not been seen since February 2023. Multiple consultations following and patient will continue on IV antibiotics with infectious disease following. Per infectious disease, patient will continue on oral Zyvox and Augmentin for 1 week on discharge as urine cultures and sputum culture showing Klebsiella Case management also providing resources in regards to visiting physicians if patient is unable to make it to Dr. Ivey's office before February 15. Continue to monitor blood sugars closely and noted patient has had decreased blood sugar readings and will adjust insulins and continue with sliding scale and decrease long-acting for now Possible discharge planning in the next 24 hours Due to multiple complex medical issues, overall prognosis is guarded The impression and plan of care has been dictated by Alyssa Hernandez, Nurse Practitioner as directed. Dr. Vicente MD I have performed a history and examination and MDM of this patient, discussed the same with the dictator, and agree with the dictator's assessment and plan as written ,documented as a scribe. Based on total visit time, I have performed more than 50% of the visit. Objective - Vital Signs Vital signs: Vital Signs Temp 98.4 F 01/14/24 13:52 Pulse 83 01/14/24 13:52 Resp 16 01/14/24 13:52 BP 116/67 01/14/24 13:52 Pulse Ox 98 01/14/24 13:52 FiO2 40 01/14/24 04:36 Intake & Output 01/13/24 01/14/24 01/14/24 18:59 06:59 18:59 Intake Total 3194.5 1502 Output Total 2600 3950 1700 Balance -2600 -755.5 -198 Weight 112.5 kg Intake: IV 100 Ampicillin-Sulbactam 3 gm 100 In Sodium Chloride 0.9% 100 ml @ 200 mls/hr IVPB Q6HR [facility] Rx#:[id number] Intake, IV Titration 1019.5 1284 Amount Mvi, Adult No.4 with Vit 1019.5 K 10 ml Trace (Conc-1Ml/ Dose) 1 ml Sodium Chloride 4Meq/ml Vial 30 meq Magnesium Sulfate gm 0.5 gm In Amino Acid 5%- D20w+Lytes*E* 1,000 ml @ 98 mls/hr IV .BY DURATION ANNIE Rx#:[id number] Sodium Chloride 4Meq/ml 784 Vial 30 meq Magnesium Sulfate gm 0.5 gm In Amino Acid 5%-D20w+Lytes* E* 1,000 ml @ 98 mls/hr IV .BY DURATION [facility] Rx#: [id number] Vancomycin 2,000 mg In 500 Sodium Chloride 0.9% 500 ml 500 ml @ 167 mls/hr IVPB Q24H [facility] Rx#: [id number] Oral 2175 118 Output: Urine 5956 127 3114 Stool 1400 3400 700 Other: Voiding Method External Catheter External Catheter ABP, PAP, CO, CI - Last Documented Arterial Blood Pressure 108/54 - Labs CBC & Chem 7: 01/07/24 05:23 01/14/24 06:24 Labs: Abnormal Lab Results - Last 24 Hours (Table) 01/13/24 01/13/24 01/14/24 Range/Units 17:01 23:56 06:22 Sodium (137-145) mmol/L Carbon Dioxide (22-30) mmol/L Creatinine (0.66-1.25) mg/dL Glucose (74-99) mg/dL POC Glucose (mg/dL) 148 H 176 H 152 H (70-110) mg/dL Calcium (8.4-10.2) mg/dL 01/14/24 01/14/24 Range/Units 06:24 11:39 Sodium 136 L (137-145) mmol/L Carbon Dioxide 31 H (22-30) mmol/L Creatinine 0.43 L (0.66-1.25) mg/dL Glucose 145 H (74-99) mg/dL POC Glucose (mg/dL) 152 H (70-110) mg/dL Calcium 8.3 L (8.4-10.2) mg/dL
[2024-01-14 16:50] LABS: Glucose,Whole Blood 174 mg/dL (70-110)
[2024-01-14 23:32] LABS: Glucose,Whole Blood 179 mg/dL (70-110)
[2024-01-15 04:36] LABS: African American GFR (CKD) >90 (>60 ml/min/1.73 sqM); Anion Gap -1 mmol/L; Blood Urea Nitrogen 17 mg/dL (9-20); Calcium 8.2 mg/dL (8.4-10.2); Carbon Dioxide 33 mmol/L (22-30); Chloride 104 mmol/L (98-107); Glucose 166 mg/dL (74-99); Non-African American GFR(CKD) >90 (>60 ml/min/1.73 sqM); Phosphorus 3.1 mg/dL (2.5-4.5); Sodium 136 mmol/L (137-145)
[2024-01-15 06:16] LABS: Glucose,Whole Blood 163 mg/dL (70-110)
[2024-01-15] MEDS: 1: MVI, ADULT NO.4 WITH VIT K 10 ML, TRACE (CONC-1ML/DOSE) 1 ML, SODIUM CHLORIDE 4MEQ/ML IV SCH (09:38)
[2024-01-15 11:14] LABS: Glucose,Whole Blood 165 mg/dL (70-110)
--- NOTE | 2024-01-15 12:56 | P.PN ---
Subjective Progress Note Date: 01/15/24 On 01/04/2024, the patient is being seen for a follow-up. The patient was weaned off the mechanical ventilator and the patient was extubated to BiPAP and this morning the patient is on 6 L of O2 nasal cannula. Cough remains weak and the patient is unable to bring up much sputum. His early sputum analysis was positive for MRSA. Chest x-ray from today shows a right-sided pleural effusion and atelectatic changes lung base bilaterally. The patient seems to be calm and comfortable and awake and communicating. He is profoundly weak. He remains on norepinephrine which is running at 0.05 mcg/kg/min. Vasopressin was discontinued. IV fluids are currently at KVO. Remains on TPN for nutritional support. Sodium is at 142, potassium 3.6 BUN is 17 with a creatinine of 0.5. CBC still pending for now. The patient remains on Unasyn and vancomycin. Remains on TPN for nutritional support. He is currently off propofol. Ileostomy is functional and there is no evidence of any bleeding from the ileo stomy or the enterocutaneous fistulas. On 01/05/2024, the patient is awake and alert and the patient is currently on a BiPAP is alternating between BiPAP pressures of 12/5 with an FiO2 40% and 40 dis impaction by nasal cannula. Chest x-ray showing atelectasis and possibly development of right-sided pleural effusion. The patient was given diuretics yesterday and the patient has diuresed adequately and he has developed hypokalemia. Fluid balance is -2.5 L over the past 24 hours. Urine output is more than 100 cc an hour. Ileostomy output is normal drop 3.7 L over the past 24 hours. Remains on TPN for nutritional support at a rate of 120 cc an hour. The white cell count of 4.3 with a hemoglobin of 8. Sodium is at 146, BUN 16 with a creatinine of 0.5. Potassium level is at 3.2. Serum bicarb is at 32. Awake and alert. Profoundly weak. Communicating. The patient remains on Unasyn and vancomycin. He is currently off pressors. Patient was seen today on 01/06/2024, remains in the ICU, on BiPAP 12/5/40% remains on antibiotics in the form of Unasyn and vancomycin remains on TPN at 120 cc/h. Chest x-ray continues to show atelectasis and small right-sided pleural effusion patient remains on diuretics, and he diuresed adequately. Continues to diurese, and continues to have good urine output. Continues to have significant ileostomy output. Patient remains on TPN for nutritional support. Labs showed WBC count 4.5 hemoglobin 7.9 basic metabolic profile is normal bicarb is 35 renal profile is normal Patient was evaluated on 01/07/2024, remains in the ICU, developed hypotension last night required going back on norepinephrine at 0.05 mcg/kg/min. Today the patient is doing well, his mean arterial pressure is in the 80s, hence I recommended tapering and possibly discontinuation of norepinephrine. Patient was on pressure support 12//50%, today he is on nasal cannula, does not seem to be in distress. He feels fine. His left groin arterial line has been removed. Continues to have significant drainage from his ostomy and fistula in the abdomen, and this is connected to a drainage tube. Patient remains on TPN at 1 of 25 cc/h. Chest x-ray continues to show some limited airspace disease in the right lower lobe, patient tells me today that he feels better than he felt yesterday in spite of requiring norepinephrine and I plan to discontinue WBC count is 7.0 hemoglobin is 8.9. Basic metabolic profile is normal renal profile is normal Was seen today on 01/08/2024 remains in the ICU on 2 L nasal cannula receiving TPN remains on antibiotics intermittently on BiPAP 12/5/40%. Patient is an overflow he needs to go to the floor once a bed becomes available, and we will plan to transfer the patient down to 3 S. Relatively asymptomatic, basic metabolic profile is normal BUN is 22 creatinine 0.47 chest x-ray showing improving perihilar and basilar infiltrates Patient was seen today at, remains in the ICU as an overflow, relatively asymptomatic laying in bed, remains on Unasyn and vancomycin, the plan is to eventually transition the patient to Augmentin and Zyvox when he goes home. Or goes to rehab. Patient had Klebsiella pneumonia in the sputum and he had MRSA, remains on TPN at 130 cc/h, intermittently on BiPAP 12/5/40%, patient seems to be comfortable presently on 2 L nasal cannula and not in distress. And he has no active symptoms labs today were reviewed, he had relatively normal basic metabolic profile and liver profile. BUN however is 2.5. The patient is seen today January 10, 2024 in follow-up on the regular medical floor. He was transferred out of the intensive care unit yesterday. He is currently resting comfortably in bed. Awake and alert in no acute distress. Is maintaining good O2 saturations in the 90s on 2 L/min per nasal cannula. He is afebrile. Hemodynamically stable. Sodium 135. Potassium 4.0. Bicarb 28. BUN 18. Creatinine 0.51. Glucose 109. He remains on Unasyn and vancomycin. Continued on lipids and TPN at 83 mL/h. Lovenox for DVT prophylaxis. Bronchioloalveolar lavage from 12/31/2023 was positive for MRSA, Klebsiella pneumoniae, Bella glabrata, urine was positive for Klebsiella pneumoniae. The patient is seen today January 11, 2024 in follow-up on the regular medical floor. He is awake and alert in no acute distress. He is resting in bed. He denies any worsening shortness of breath, cough or congestion. He is maintaining good O2 saturations up to 100% on 2 L/min per nasal cannula. He is afebrile. Hemodynamically stable. Bronchial wash cultures were positive for Klebsiella pneumoniae. Urine culture was positive for Klebsiella pneumoniae. Previous bronch culture was positive for MRSA. Sodium 137. Potassium 3.9. Bicarb 31. BUN 16. Creatinine 0.59. Glucose 145. Vancomycin trough 15.0. He remains on Unasyn and vancomycin. He is on Lovenox for DVT prophylaxis. TPN and lipids for nutritional support. Seen today January 12, 2024 in follow-up on the regular medical floor. He is resting in bed. Awake and alert in no acute distress. He is maintaining good O2 saturations in the 90s on 2 L/min per nasal cannula. He is afebrile. Hemodynamically stable. That is post 2 units of packed red blood cells this admission. Current hemoglobin 8.9. Bronchial wash cultures were positive for Klebsiella pneumoniae. Urine culture was positive for Klebsiella pneumoniae. Previous bronch culture was positive for MRSA. Sodium 139. Potassium 4.1. Bicarb 30. BUN 18. Creatinine 0.55. Glucose 124. He remains on vancomycin and Unasyn. Being nourished with TPN and lipids. Therapeutic Lovenox. The patient is seen today January 13, 2024 in follow-up on the regular medical floor. He is awake and alert in no acute distress. Resting comfortably in bed. He denies any worsening shortness of breath, cough or congestion. Is maintaining good O2 saturation in the 90s on 3 L/min per nasal cannula. Sodium 137. Potassium 3.9. Bicarb 31. BUN 18. Creatinine 0.50. Glucose 151. Vancomycin level 14.8. And Unasyn. Therapeutic Lovenox. Remains nourished with TPN at 98 mL/h and lipids. The patient is seen today January 14 2024 in follow-up on the regular medical floor. He is resting comfortably in bed. Awake and alert in no acute distress. He denies any worsening shortness of breath, cough or congestion. He is maintaining good O2 saturations in the 90s on 3 L/min per per minute per nasal cannula. He is receiving TPN at 98 mL/h. Receives lipids Sundays. Therapeutic Lovenox. He is continued on vancomycin and Unasyn. Sodium 136. Potassium 4.5. Bicarb 31. BUN 18. Creatinine 0.43. Glucose 152. The patient is seen today January 15, 2024 in follow-up on the regular medical floor. He is resting in bed. Awake and alert in no acute distress. Maintaining O2 saturation in the 90s on 3 L/min per nasal cannula. He continues to use BiPAP at night 12 and 40% FiO2. TPN at 98 mL/h. Continued on vancomycin and Unasyn. Sodium 136. Potassium 4.0. Bicarb 33. BUN 17. Creatinine 0.47. Glucose 166. Objective - Vital Signs Vital signs: Vital Signs Temp 98.7 F 01/15/24 07:30 Pulse 88 01/15/24 12:49 Resp 16 01/15/24 12:49 BP 132/66 01/15/24 07:30 Pulse Ox 98 01/15/24 07:30 FiO2 40 01/15/24 09:37 Intake & Output 01/14/24 01/15/24 01/15/24 18:59 06:59 18:59 Intake Total 1502 2855.5 Output Total 1700 3400 Balance -198 -544.5 Weight 112.2 kg Intake: IV 100 100 Ampicillin-Sulbactam 3 gm 100 100 In Sodium Chloride 0.9% 100 ml @ 200 mls/hr IVPB Q6HR [facility] Rx#:[id number] Intake, IV Titration 1284 2215.5 Amount Mvi, Adult No.4 with Vit 1019.5 K 10 ml Trace (Conc-1Ml/ Dose) 1 ml Sodium Chloride 4Meq/ml Vial 30 meq Magnesium Sulfate gm 0.5 gm In Amino Acid 5%- D20w+Lytes*E* 1,000 ml @ 98 mls/hr IV .BY DURATION [facility] Rx#:[id number] Sodium Chloride 4Meq/ml 784 1196 Vial 30 meq Magnesium Sulfate gm 0.5 gm In Amino Acid 5%-D20w+Lytes* E* 1,000 ml @ 98 mls/hr IV .BY DURATION [facility] Rx#: [id number] Vancomycin 2,000 mg In 500 Sodium Chloride 0.9% 500 ml 500 ml @ 167 mls/hr IVPB Q24H [facility] Rx#: [id number] Oral 118 540 Output: Urine 1000 1100 Stool 700 2300 Other: Voiding Method External Catheter External Catheter ABP, PAP, CO, CI - Last Documented Arterial Blood Pressure 108/54 - Exam GENERAL EXAM: Awake, alert 48-year-old male, resting comfortably in bed, in no acute distress. On 3 L nasal cannula HEAD: Normocephalic and atraumatic EYES: Normal reaction of pupils, equal size. NOSE: Clear with pink turbinates. THROAT: No erythema or exudates. NECK: No masses, no JVD. CHEST: No chest wall deformity. Left subclavian double-lumen central line LUNGS: Equal air entry with no crackles, wheeze, rhonchi or dullness. CVS: S1 and S2 normal with no audible murmur, regular rhythm. No extra heart sounds ABDOMEN: Ileostomy with brown stool, enterocutaneous fistula noted with stool no evidence of any bleeding. Multiple surgical scars noted throughout the whole abdomen. SKIN: No rashes CENTRAL NERVOUS SYSTEM: Alert and oriented x 3 no gross focal deficit EXTREMITIES: Right BKA, left leg weakness and left foot drop, remaining distal pulses are weak and only found with Doppler. Extremities are showing diminished pulses bilaterally - Labs CBC & Chem 7: 01/07/24 05:23 01/15/24 03:45 Labs: Abnormal Lab Results - Last 24 Hours (Table) 01/14/24 01/14/24 01/15/24 Range/Units 16:49 23:30 03:45 Sodium 136 L (137-145) mmol/L Carbon Dioxide 33 H (22-30) mmol/L Creatinine 0.47 L (0.66-1.25) mg/dL Glucose 166 H (74-99) mg/dL POC Glucose (mg/dL) 174 H 179 H (70-110) mg/dL Calcium 8.2 L (8.4-10.2) mg/dL 01/15/24 01/15/24 Range/Units 06:14 11:12 Sodium (137-145) mmol/L Carbon Dioxide (22-30) mmol/L Creatinine (0.66-1.25) mg/dL Glucose (74-99) mg/dL POC Glucose (mg/dL) 163 H 165 H (70-110) mg/dL Calcium (8.4-10.2) mg/dL Assessment and Plan Assessment: Acute hypoxic respiratory failure, with bilateral pneumonia in the lung bases/atelectasis and the bronchial lavage was positive for MRSA and Klebsiella pneumonia Acute blood loss anemia secondary to GI blood losses possible abdominal wall bleeding Tracheostenosis, 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 Under control Recent history of ventilator dependent respiratory failure, secondary to pne umonia, microbiology from BAL positive for haemophilus influenzae History of DVT, on therapeutic dose of Lovenox History of Crohn's disease complicated by bowel perforation status post colectomy and diverting ileostomy. 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 Currently receiving TPN for nutritional support. 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 Number of minutes spent on the visit: 10 Dictation was produced using [employer] dictation software. Please excuse any grammatical, word or spelling errors.
[2024-01-15 16:35] LABS: Glucose,Whole Blood 195 mg/dL (70-110)
--- NOTE | 2024-01-15 23:38 | P.PN ---
Subjective Progress Note Date: 01/15/24 Principal diagnosis: Reason for follow-up is sepsis UTI/pneumonia Patient is a 48-year-old male with a past medical history difficult for CVA TIA DVT did have a history of Crohn's disease with bowel perforation requiring ileostomy and also have a enterocutaneous fistula patient initially presentation to the hospital was weakness not feeling well subsequent did have w orsening of the respiratory status requiring intubation did have a fever concerning for possible pneumonia. On today's evaluation that is 01/15/2024,the patient denies any fever or any chills, patient is breathing comfortably on room air, the patient denies chest pain shortness of breath and no significant cough, patient denies abdominal pain, no nausea vomiting, no new symptoms. Patient did have a creatinine 0.47 Objective - Vital Signs Vital signs: Vital Signs Temp 98.7 F 01/15/24 07:30 Pulse 82 01/15/24 09:48 Resp 18 01/15/24 09:48 BP 132/66 01/15/24 07:30 Pulse Ox 98 01/15/24 07:30 FiO2 40 01/15/24 09:37 Intake & Output 01/14/24 01/15/24 01/15/24 18:59 06:59 18:59 Intake Total 1502 2855.5 Output Total 1700 3400 Balance -198 -544.5 Weight 112.2 kg Intake: IV 100 100 Ampicillin-Sulbactam 3 gm 100 100 In Sodium Chloride 0.9% 100 ml @ 200 mls/hr IVPB Q6HR [facility] Rx#:[id number] Intake, IV Titration 1284 2215.5 Amount Mvi, Adult No.4 with Vit 1019.5 K 10 ml Trace (Conc-1Ml/ Dose) 1 ml Sodium Chloride 4Meq/ml Vial 30 meq Magnesium Sulfate gm 0.5 gm In Amino Acid 5%- D20w+Lytes*E* 1,000 ml @ 98 mls/hr IV .BY DURATION [facility] Rx#:[id number] Sodium Chloride 4Meq/ml 784 1196 Vial 30 meq Magnesium Sulfate gm 0.5 gm In Amino Acid 5%-D20w+Lytes* E* 1,000 ml @ 98 mls/hr IV .BY DURATION [facility] Rx#: [id number] Vancomycin 2,000 mg In 500 Sodium Chloride 0.9% 500 ml 500 ml @ 167 mls/hr IVPB Q24H [facility] Rx#: [id number] Oral 118 540 Output: Urine 1000 1100 Stool 700 2300 Other: Voiding Method External Catheter External Catheter ABP, PAP, CO, CI - Last Documented Arterial Blood Pressure 108/54 - Exam GENERAL DESCRIPTION: Middle-age male lying in bed in no distress RESPIRATORY SYSTEM: Unlabored breathing , decreased breath sounds at bases HEART: S1 S2 regular rate and rhythm , ABDOMEN: Soft , no tenderness EXTREMITIES: Diffuse swelling to the leg no redness, 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 - Labs CBC & Chem 7: 01/07/24 05:23 01/15/24 03:45 Labs: Abnormal Lab Results - Last 24 Hours (Table) 01/14/24 01/14/24 01/15/24 Range/Units 16:49 23:30 03:45 Sodium 136 L (137-145) mmol/L Carbon Dioxide 33 H (22-30) mmol/L Creatinine 0.47 L (0.66-1.25) mg/dL Glucose 166 H (74-99) mg/dL POC Glucose (mg/dL) 174 H 179 H (70-110) mg/dL Calcium 8.2 L (8.4-10.2) mg/dL 01/15/24 01/15/24 Range/Units 06:14 11:12 Sodium (137-145) mmol/L Carbon Dioxide (22-30) mmol/L Creatinine (0.66-1.25) mg/dL Glucose (74-99) mg/dL POC Glucose (mg/dL) 163 H 165 H (70-110) mg/dL Calcium (8.4-10.2) mg/dL Assessment and Plan (1) Pneumonia Current Visit: Yes Status: Acute Code(s): J18.9 - PNEUMONIA, UNSPECIFIED ORGANISM SNOMED Code(s): 939426122 (2) Sepsis Current Visit: No Status: Acute Code(s): A41.9 - SEPSIS, UNSPECIFIED ORGANISM SNOMED Code(s): 44418157 Plan: 1patient with sepsis/septic shock in this patient who did have a fever elevated white count high clinical suspicion of possible left lower lobe pneumonia in this patient who did have multiple comorbidities and complicated intra-abdominal history with history of bowel perforation and did have ileostomy and enterocutaneous fistula keeping in mind the patient has been in and out of the hospital we will need to cover for the resistant gram-positive as well as gram- negative pathogen 2-patient bronchial culture grew MRSA urine is growing Klebsiella that is sensitive to Unasyn, repeat bronchoscopy cultures are growing Klebsiella and Bella glabrata 3patient did have resolution of his fever and the patient white count normaliz ed 4patient has received adequate antibiotic therapy during this hospital stay continue vancomycin and Unasyn can be discontinued on discharge currently waiting for weaning of his TPN as per discussion with admitting team [employer] Dictation was produced using [employer] dictation software. please excuse any grammatical, word or spelling errors. Time with Patient: Less than 30
[2024-01-16 00:07] LABS: Glucose,Whole Blood 128 mg/dL (70-110)
--- NOTE | 2024-01-16 03:52 | P.PN ---
Subjective Progress Note Date: 01/15/24 This is a pleasant 48 years old male with past medical history of Crohn disease complicated with bowel perforation requiring ileostomy, also has 2 fistula in his anterior abdominal Wall, patient also has left upper chest portal to receive TPN who was only discharged yesterday after being admitted to the hospital for pneumonia and respiratory failure was discharged yesterday in stable condition. Patient came back to the ER today because of debility and having issues with his TPN supplies. There has been some issues with primary care appointments and orders with TPN requiring signature from his PCP. At this time patient denies any chest pain or shortness of breath. There was no complaint of fever or chills. Denies any nausea, vomiting, abdominal pain. Denies any lightheaded dizziness. Initial lab work done in the ER showed W6.3, hemoglobin 20.7, platelet count 264, sodium 130, potassium 4.9, BUN 20, creatinine 0.41, phosphorus 2.4, alk phos 133, total protein 9 Patient admitted to internal medicine service 12/26. Patient seen and examined. Complaining of pain in his right hand. D enies any shortness of breath /12. Patient seen and examined. Potassium level this morning was 5.5, patient was getting potassium supplementation, will DC it for now. 12/28. Patient seen and examined. Patient had a rapid response called overnight for low blood pressure, patient was given 2-1/2 L of fluid. Labs on this morning showed WBC 10.4, hemoglobin 14.4, platelet count 420, sodium 124, p otassium 5.5, BUN 104, creatinine 1.59. Ostomy output is blood-tinged. 12/30/2023 Patient continues in the ICU requiring low-dose pressor support and currently being weaned. Multiple consultations following including general surgery and did a washout of the abdomen early this morning along with cauterizing and placing sutures to an area near the ostomy that had been bleeding. Hemoglobin is stable and is being closely monitored with hemoglobins every 6 hours. Transfuse if 7 or less. Patient to continue with strict n.p.o. and is maintained on TPN. Blood sugars have been more elevated and will add long- acting and adjust insulins accordingly 12/31/2023 Patient continues in the ICU with multiple consultations following. Patient requiring increased oxygen demands currently on 6 L and transition to Airvo and pulmonary research programmer following planning on bronchoscopy today. Patient is a febrile although continues with an elevated white count and hemoglobin is stable above 8 with no active bleeding noted. Patient is n.p.o. maintained on TPN at this time. Blood sugars continue to be in the 200s consistently and will adjust long-acting and continue sliding scale. 01/01/2024 patient is seen in follow up today and experienced increasing respiratory demands and became more obtunded and unresponsive requiring mechanical ventilation. Patient FiO2 is 50% with a PEEP of 8 and is status post bronchoscopy yesterday. Patient maintained on Levophed and vasopressin along with propofol. White count is elevated and patient is continued on IV antibiotics in the form of vancomycin and Zosyn. Cultures have been sent and pending at this time. Will consult infectious disease and appreciate input and recommendations. Hemoglobin is stable at 7.8 with no active bleeding noted. Potassium 2.7 and magnesium 1.5 along with phosphorus 0.9 and being replaced per protocol. Kidney functions remained stable at this time other than a chloride of 115 and sodium is 142. Patient is also being started on Eraxis. Recommend adjusting TPN per dietary and pharmacy. Overall prognosis remains extremely guarded at this time. 01/02/2024 Patient is evaluated in the intensive care unit he is currently intubated however he is awake alert oriented with eye moving and able to respond with nods to simple questions. Pressor support in the process of being weaned her blood pressure 144/65. Mechanical ventilator with an FiO2 of 50% and a PEEP of . Continues on TPN. Rectal tube in place continues with loose stools. C.Dif was negative. Cultures currently pending. Remains on Antibiotics with IV Zosyn, IV vancomycin as well as IV anidulafungin. Procalcitonin level was mildly elevated at 1.38. X-ray this morning reveals basilar atelectasis on the left as well as right midlung. Has white blood cell count is down to 10.7 today hemoglobin of 8.1. Sodium level is 142, potassium 2.6, BUN of 43 creatinine of 0.68. Magnesium 1.7. Blood glucose in the 150s continues on Levemir twice a day for this. 01/03/2024 Patient is seen in follow-up today remains intubated and discussing possible e xtubation today with pulmonary following scheduled to undergo bronchoscopy as well. Patient is maintained on antibiotics with infectious disease following while awaiting urine cultures as well as sputum culture showing MRSA. Preliminary urine is gram-negative and will continue current antibiotic regimen. Patient remains on low-dose pressor support and attempting to wean. TPN continues and tolerating. Continue to monitor Accu-Cheks and continue current regimen although blood sugars have been a little lower today. Recommend Accu- Cheks before meals and at bedtime and 2 AM. Patient is alert and responding on exam as propofol is off. Patient extremely weak and lethargic and falls asleep during conversation. Patient also appears frustrated as he is unable to communicate due to intubation 01/03. Patient seen and examined. 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 Patient received IV Lasix this morning. No bleeding around the ileostomy site. 01/04. Patient examined. Potassium placement ordered. States he feels better compared to yesterday. Denies any chest pain 01/06/2024 Patient is seen in follow-up continues in the ICU and is currently maintained on nasal cannula and tolerating thus far. Patient continues on TPN with multiple consultations following. Awaiting finalized cultures on repeat sputum culture from most recent bronchoscopy. Patient is afebrile and white count remains normal. Patient is continued on IV antibiotics in the form of Unasyn as well as vancomycin. Patient also continues on low-dose norepinephrine and is being weaned. 01/07/2024 Patient is seen in follow-up today and remains in the ICU and currently has been weaned off of Levophed maintaining blood pressures. Planning for transferring out of the ICU if blood pressure remains stable. Patient is afebrile and continued on IV antibiotics and will continue the same with infectious disease following. White count has normalized and patient is afebrile. Patient continues on TPN and will continue at this time. Patient also continues on 2 L via nasal cannula as well as titrating and weaning as tolerated. Patient using BiPAP intermittently as needed as well. Chest x-ray today showed a stable chest. 01/08/2024 Patient is seen in follow-up today remains off pressor support and awaiting a bed on 3 S. is a downgrade from ICU. Multiple consultations following and awaiting PT/OT therapy evaluation as patient will likely need ECF for continued strength and mobility. Currently working on discharge planning regarding TPN as patient's primary care provider Dr. Ivey has reported she needs to see the patient prior to reinitiating any further orders and previous surgeon from [facility] has refused to sign any future orders regarding TPN. Social work following and have also discussed possible visiting physician to come to the home as patient is mostly bedbound and has supportive care at the home per family. Patient is afebrile with no reports of chest pain or shortness of breath. 01/09/2024 Patient is seen and evaluated in follow-up today and is being moved out of the ICU blood pressure has been stabilized and patient remains off pressor support. Patient evaluated by PT/OT therapy and per social work patient is at baseline and would not qualify for ECF. Patient has extensive wounds of the abdomen along with ostomy care as a BKA and mostly bedbound making it extremely difficult to follow-up at doctors office appointments and has been in and out of the hospital multiple times this last year. Currently attempting to work with primary care provider Dr. Ivey's office as patient is maintained on TPN al though has not been seen and evaluated in her office since February 2023. Patient would need to have an appointment with the provider in the office to reestablish and continue TPN orders. Home care is being arranged and will discuss with case management/social work regarding other options. 01/10/2024 Patient is seen in follow-up today with no acute overnight issues. Multiple consultations following and patient is maintained on TPN. Respiratory status improved and pulmonary has cleared the patient is once cleared by other consultations for discharge home. Patient will continue current regimen for now and will discuss with infectious disease with likely oral antibiotics on discharge. Discussed with Dr. Ivey's office regarding social issues and transportation with making it to appointments and they have agreed to conduct a telehealth visit hopefully for Saturday to continue with TPN orders as well as home care orders. Patient will also need to physically be present for an appointment in the office with Dr. Ivey before February 16, 2024 in order to remain a patient of hers. This was expressed to patient along with family members. 01/11/2024 Patient is seen in follow-up today with multiple consultations following. Patient has a telehealth visit with primary care provider Dr. Ivey on [place] afternoon working on arranging for discharge planning with home care as well as continued TPN orders. Patient will also be required to physically be present and appointment with Dr. Ivey's office before February for her to continue being his primary care provider. Patient is afebrile tolerating TPN with no acute issues noted. Continue ostomy care and patient will continue on antibiotics with infectious disease following for now. Will discuss further regarding discharge planning if patient will require antibiotics on discharge. 01/12/2024 Patient is seen in follow-up with no acute overnight issues noted. Scheduled to undergo telehealth visit with Dr. Ivey on Saturday and will await to discuss further regarding discharge planning to make sure home care and TPN orders are arranged prior to discharge. Patient will continue on oral Zyvox and Augmentin for 1 week on discharge per ID recommendations. Continue with local wound care and will arrange for outpatient follow-up visit in Dr. Ivey's office before February 2024. Patient is afebrile denies worsening shortness of breath with no reports of chest pain or palpitations. Patient is tolerating TPN. 01/13/2024 Patient is seen in follow-up today scheduled to undergo telehealth visit with primary care provider today to ensure home care orders are signed along with TPN. Patient also is required to physically be in Dr. Ivey office for a follow-up appointment prior to February 15. Patient is maintained on IV antibiotics per ID and will be going home on a week of oral Avelox and Augmentin on discharge. Patient has been cleared by consultations for discharge home and will arrange for discharge planning in the next 24 hours 01/14/2024 Patient seen and evaluated in follow-up being scheduled for discharge although [employer] reports they are having difficulty mixing TPN formula and will have to be on 01/15/2024. Patient will be monitored overnight and plan on discharge planning with necessary equipment and supplies to home with home care. Patient will follow-up with primary care provider Dr. Ivey outpatient. 01/15/2024 Patient is seen in follow-up today with no acute overnight issues noted. Patient was scheduled for discharge today although now infusion [employer] is refusing the patient to continue providing the TPN. Case management worked with Dr. Ivey's office to obtain a 3-month refill for TPN although no infusion [employer] is refusing to fill the order at all. Case management following working on discharge planning and an accepting infusion company to continue TPN. Patient was placed on TPN and sent home by [facility] surgeon with continued TPN and is refusing any further orders. Will consult dietary and discuss the possible need for continued TPN as patient is also eating. REVIEW OF SYSTEMS: CONSTITUTIONAL: No fever, no malaise,. CARDIOVASCULAR: No chest pain, no palpitations, no syncope. PULMONARY: No shortness of breath, no cough, GASTROINTESTINAL: No diarrhea, no nausea, no vomiting, no abdominal pain. NEUROLOGICAL: No headaches, reports generalized weakness PHYSICAL EXAMINATION: GENERAL: The patient is alert and oriented x3, ill looking, elderly appearing, obese HEENT: Pupils are round and equally reacting to light. EOMI. No scleral icterus. No conjunctival pallor. Normocephalic, atraumatic. No pharyngeal erythema. No thyromegaly. CARDIOVASCULAR: S1 and S2 muffled PULMONARY: Diminished breath sound the bases bilaterally with some scattered rhonchi and bronchial congestion noted. ABDOMEN: Soft, nontender, nondistended,. Ostomy seen MUSCULOSKELETAL: No joint swelling or deformity. Right BKA EXTREMITIES: No cyanosis, clubbing, or pedal edema. NEUROLOGICAL: Gross neurological examination did not reveal any focal deficits. Diffusely weak SKIN: No rashes. Pale Assessment: Hypotension with hypotensive shock requiring pressor support likely secondary to acute GI bleed and hypovolemia Acute GI bleed from the ostomy secondary to an abdominal wall extravasation near the ostomy requiring sutures and cauterization 12/30/2023, resolved Acute blood loss anemia secondary to above acute kidney injury secondary to hypotension acute urinary tract infection, secondary to indwelling Medina catheter, while inpatient. 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 Case management following and plan will be to return home on discharge as patient is baseline and would not qualify for ECF for rehab. Patient had telehealth visit with Dr. Ivey to ensure home care orders as well as TPN orders being resumed. TPN infusion company now refusing to fill for TPN as the length of service is not determined and renewal prescription per Dr. Ivey was initially 1 month although they wrote for 3 month renewal on TPN. Case management following and looking for new infusion company that will accept the patient and his insurance. Per Dr. Ivey's office, patient also must physically make an appointment in her office before February 15 or patient will be discharged from the practice. Patient has not been seen since February 2023. Multiple consultations following and patient will continue on IV antibiotics with infectious disease following. Per infectious disease, patient will continue on oral Zyvox and Augmentin for 1 week on discharge as urine cultures and sputum culture showing Klebsiella Case management also providing resources in regards to visiting physicians if patient is unable to make it to Dr. Ivey's office before February 15. Continue to monitor blood sugars closely and noted patient has had decreased blood sugar readings and will adjust insulins and continue with sliding scale and decrease long-acting for now Possible discharge planning if TPN is arranged in the next 2448 hours Due to multiple complex medical issues, overall prognosis is guarded The impression and plan of care has been dictated by Alyssa Hernandez, Nurse Practitioner as directed. Dr. Vicente MD I have performed a history and examination and MDM of this patient, discussed the same with the dictator, and agree with the dictator's assessment and plan as written ,documented as a scribe. Based on total visit time, I have performed more than 50% of the visit. Objective - Vital Signs Vital signs: Vital Signs Temp 98.1 F 01/16/24 01:45 Pulse 84 01/16/24 01:45 Resp 12 01/16/24 01:45 BP 105/65 01/16/24 01:45 Pulse Ox 98 01/16/24 01:45 FiO2 40 01/16/24 00:46 Intake & Output 01/15/24 01/15/24 01/16/24 06:59 18:59 06:59 Intake Total 2855.5 Output Total 3400 3300 3250 Balance -544.5 -3300 -3250 Weight 112.2 kg Intake: IV 100 Ampicillin-Sulbactam 3 gm 100 In Sodium Chloride 0.9% 100 ml @ 200 mls/hr IVPB Q6HR [facility] Rx#:[id number] Intake, IV Titration 2215.5 Amount Mvi, Adult No.4 with Vit 1019.5 K 10 ml Trace (Conc-1Ml/ Dose) 1 ml Sodium Chloride 4Meq/ml Vial 30 meq Magnesium Sulfate gm 0.5 gm In Amino Acid 5%- D20w+Lytes*E* 1,000 ml @ 98 mls/hr IV .BY DURATION [facility] Rx#:[id number] Sodium Chloride 4Meq/ml 1196 Vial 30 meq Magnesium Sulfate gm 0.5 gm In Amino Acid 5%-D20w+Lytes* E* 1,000 ml @ 98 mls/hr IV .BY DURATION [facility] Rx#: [id number] Oral 540 Output: Urine 1100 2300 850 Stool 2300 2400 Urine/Stool Mix 1000 Other: Voiding Method External Catheter External Catheter External Catheter ABP, PAP, CO, CI - Last Documented Arterial Blood Pressure 108/54 - Labs CBC & Chem 7: 01/07/24 05:23 01/15/24 03:45 Labs: Abnormal Lab Results - Last 24 Hours (Table) 01/15/24 01/15/24 01/15/24 Range/Units 03:45 06:14 11:12 Sodium 136 L (137-145) mmol/L Carbon Dioxide 33 H (22-30) mmol/L Creatinine 0.47 L (0.66-1.25) mg/dL Glucose 166 H (74-99) mg/dL POC Glucose (mg/dL) 163 H 165 H (70-110) mg/dL Calcium 8.2 L (8.4-10.2) mg/dL 01/15/24 01/16/24 Range/Units 16:34 00:04 Sodium (137-145) mmol/L Carbon Dioxide (22-30) mmol/L Creatinine (0.66-1.25) mg/dL Glucose (74-99) mg/dL POC Glucose (mg/dL) 195 H 128 H (70-110) mg/dL Calcium (8.4-10.2) mg/dL
[2024-01-16 04:37] LABS: African American GFR (CKD) >90 (>60 ml/min/1.73 sqM); Anion Gap 2 mmol/L; Blood Urea Nitrogen 17 mg/dL (9-20); Calcium 8.2 mg/dL (8.4-10.2); Carbon Dioxide 31 mmol/L (22-30); Chloride 102 mmol/L (98-107); Glucose 145 mg/dL (74-99); Non-African American GFR(CKD) >90 (>60 ml/min/1.73 sqM); Potassium 4.1 mmol/L (3.5-5.1); Sodium 135 mmol/L (137-145)
[2024-01-16 06:08] LABS: Glucose,Whole Blood 153 mg/dL (70-110)
[2024-01-16 06:57] LABS: Phosphorus 3.5 mg/dL (2.5-4.5)
[2024-01-16 08:48] VITALS: BP 131/78; TEMP 98.5
--- NOTE | 2024-01-16 09:45 | P.DS ---
Providers Date of admission: 12/30/23 08:39 Expected date of discharge: 01/16/24 Attending physician: Chepe Garrett Consults: 12/29/23 09:58 Consult Physician Routine Consulting Provider: Maria Luisa Dixon Consult Reason/Comments: Hyponatremia, KILO Do you want consulting provider notified?: Yes 12/29/23 19:53 Consult Physician Urgent Consulting Provider: Javid Munoz Consult Reason/Comments: ICU management Do you want consulting provider notified?: Already Contacted 01/01/24 12:33 Consult Physician Routine Consulting Provider: Chanel Uriostegui Consult Reason/Comments: leukocytosis, resp failure, ext abdmoninal hx Do you want consulting provider notified?: Yes Primary care physician: Chong Ivey [facility] Course: Final diagnosis Assessment: Hypotension with hypotensive shock requiring pressor support likely secondary to acute GI bleed and hypovolemia Acute GI bleed from the ostomy secondary to an abdominal wall extravasation near the ostomy requiring sutures and cauterization 12/30/2023, resolved Acute blood loss anemia secondary to above acute kidney injury secondary to hypotension acute urinary tract infection, secondary to indwelling Medina catheter, while inpatient. 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 Patient will follow-up with Dr. Ivey in the outpatient setting in her office before February 15 upon discharge. Patient will be discharged from the practice if he does not follow-up physically in person prior to February 16, [address] Ivey's stipulations. Patient is to continue with TPN and outpatient follow-up with his surgeon out of [facility] as scheduled. Total time taken is greater than 35 minutes. Hospital course This is a pleasant 48 years old male with past medical history of Crohn disease complicated with bowel perforation requiring ileostomy, also has 2 fistula in his anterior abdominal Wall, patient also has left upper chest portal to receive TPN who was only discharged yesterday after being admitted to the hospital for pneumonia and respiratory failure was discharged yesterday in stable condition. Patient came back to the ER today because of debility and having issues with his TPN supplies. There has been some issues with primary care appointments and orders with TPN requiring signature from his PCP. At this time patient denies any chest pain or shortness of breath. There was no complaint of fever or chills. Denies any nausea, vomiting, abdominal pain. Denies any lightheaded dizziness. Initial lab work done in the ER showed W6.3, hemoglobin 20.7, platelet count 264, sodium 130, potassium 4.9, BUN 20, creatinine 0.41, phosphorus 2.4, alk phos 133, total protein 9 Patient admitted to internal medicine service 12/26. Patient seen and examined. Complaining of pain in his right hand. Denies any shortness of breath /12. Patient seen and examined. Potassium level this morning was 5.5, patient was getting potassium supplementation, will DC it for now. 12/28. Patient seen and examined. Patient had a rapid response called [facility] for low blood pressure, patient was given 2-1/2 L of fluid. Labs on this morning showed WBC 10.4, hemoglobin 14.4, platelet count 420, sodium 124, potassium 5.5, BUN 104, creatinine 1.59. Ostomy output is blood-tinged. 12/30/2023 Patient continues in the ICU requiring low-dose pressor support and currently being weaned. Multiple consultations following including general surgery and did a washout of the abdomen early this morning along with cauterizing and placing sutures to an area near the ostomy that had been bleeding. Hemoglobin is stable and is being closely monitored with hemoglobins every 6 hours. Transfuse if 7 or less. Patient to continue with strict n.p.o. and is maintained on TPN. Blood sugars have been more elevated and will add long- acting and adjust insulins accordingly 12/31/2023 Patient continues in the ICU with multiple consultations following. Patient requiring increased oxygen demands currently on 6 L and transition to Airvo and pulmonary sheriff detective following planning on bronchoscopy today. Patient is afebrile although continues with an elevated white count and hemoglobin is stable above 8 with no active bleeding noted. Patient is n.p.o. maintained on TPN at this time. Blood sugars continue to be in the 200s consistently and will adjust long-acting and continue sliding scale. 01/01/2024 patient is seen in follow up today and experienced increasing respiratory demands and became more obtunded and unresponsive requiring mechanical ventilation. Patient FiO2 is 50% with a PEEP of 8 and is status post bronchoscopy yesterday. Patient maintained on Levophed and vasopressin along with propofol. White count is elevated and patient is continued on IV antibiotics in the form of vancomycin and Zosyn. Cultures have been sent and pending at this time. Will consult infectious disease and appreciate input and recommendations. Hemoglobin is stable at 7.8 with no active bleeding noted. Potassium 2.7 and magnesium 1.5 along with phosphorus 0.9 and being replaced per protocol. Kidney functions remained stable at this time other than a chloride of 115 and sodium is 142. Patient is also being started on Eraxis. Recommend adjusting TPN per dietary and pharmacy. Overall prognosis remains extremely guarded at this time. 01/02/2024 Patient is evaluated in the intensive care unit he is currently intubated however he is awake alert oriented with eye moving and able to respond with nods to simple questions. Pressor support in the process of being weaned her blood pressure 144/65. Mechanical ventilator with an FiO2 of 50% and a PEEP of . Continues on TPN. Rectal tube in place continues with loose stools. C.Dif was negative. Cultures currently pending. Remains on Antibiotics with IV Zosyn, IV vancomycin as well as IV anidulafungin. Procalcitonin level was mildly elevated at 1.38. X-ray this morning reveals basilar atelectasis on the left as well as right midlung. Has white blood cell count is down to 10.7 today hemoglobin of 8.1. Sodium level is 142, potassium 2.6, BUN of 43 creatinine of 0.68. Magnesium 1.7. Blood glucose in the 150s continues on Levemir twice a day for this. 01/03/2024 Patient is seen in follow-up today remains intubated and discussing possible extubation today with pulmonary following scheduled to undergo bronchoscopy as well. Patient is maintained on antibiotics with infectious disease following while awaiting urine cultures as well as sputum culture showing MRSA. Preliminary urine is gram-negative and will continue current antibiotic regimen. Patient remains on low-dose pressor support and attempting to wean. TPN continues and tolerating. Continue to monitor Accu-Cheks and continue current regimen although blood sugars have been a little lower today. Recommend Accu- Cheks before meals and at bedtime and 2 AM. Patient is alert and responding on exam as propofol is off. Patient extremely weak and lethargic and falls asleep during conversation. Patient also appears frustrated as he is unable to communicate due to intubation 01/03. Patient seen and examined. 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 Patient received IV Lasix this morning. No bleeding around the ileostomy site. 01/04. Patient examined. Potassium placement ordered. States he feels better compared to yesterday. Denies any chest pain 01/06/2024 Patient is seen in follow-up continues in the ICU and is currently maintained on nasal cannula and tolerating thus far. Patient continues on TPN with multiple consultations following. Awaiting finalized cultures on repeat sputum culture from most recent bronchoscopy. Patient is afebrile and white count remains normal. Patient is continued on IV antibiotics in the form of Unasyn as well as vancomycin. Patient also continues on low-dose norepinephrine and is being weaned. 01/07/2024 Patient is seen in follow-up today and remains in the ICU and currently has been weaned off of Levophed maintaining blood pressures. Planning for transferring out of the ICU if blood pressure remains stable. Patient is afebrile and continued on IV antibiotics and will continue the same with infectious disease following. White count has normalized and patient is afebrile. Patient continues on TPN and will continue at this time. Patient also continues on 2 L via nasal cannula as well as titrating and weaning as tolerated. Patient using BiPAP intermittently as needed as well. Chest x-ray today showed a stable chest. 01/08/2024 Patient is seen in follow-up today remains off pressor support and awaiting a bed on 3 S. is a downgrade from ICU. Multiple consultations following and awaiting PT/OT therapy evaluation as patient will likely need ECF for continued strength and mobility. Currently working on discharge planning regarding TPN as patient's primary care provider Dr. Ivey has reported she needs to see the patient prior to reinitiating any further orders and previous surgeon from [facility] has refused to sign any future orders regarding TPN. Social work following and have also discussed possible visiting physician to come to the home as patient is mostly bedbound and has supportive care at the home per family. Patient is afebrile with no reports of chest pain or shortness of breath. 01/09/2024 Patient is seen and evaluated in follow-up today and is being moved out of the ICU blood pressure has been stabilized and patient remains off pressor support. Patient evaluated by PT/OT therapy and per social work patient is at baseline and would not qualify for ECF. Patient has extensive wounds of the abdomen along with ostomy care as a BKA and mostly bedbound making it extremely difficult to follow-up at doctors office appointments and has been in and out of the hospital multiple times this last year. Currently attempting to work with primary care provider Dr. Ivey's office as patient is maintained on TPN although has not been seen and evaluated in her office since February 2023. Patient would need to have an appointment with the provider in the office to reestablish and continue TPN orders. Home care is being arranged and will discuss with case management/social work regarding other options. 01/10/2024 Patient is seen in follow-up today with no acute overnight issues. Multiple consultations following and patient is maintained on TPN. Respiratory status improved and pulmonary has cleared the patient is once cleared by other consultations for discharge home. Patient will continue current regimen for now and will discuss with infectious disease with likely oral antibiotics on discharge. Discussed with Dr. Ivey's office regarding social issues and transportation with making it to appointments and they have agreed to conduct a telehealth visit hopefully for Saturday to continue with TPN orders as well as home care orders. Patient will also need to physically be present for an appointment in the office with Dr. Ivey before February 16, 2024 in order to remain a patient of hers. This was expressed to patient along with family members. 01/11/2024 Patient is seen in follow-up today with multiple consultations following. Patient has a telehealth visit with primary care provider Dr. Ivey on Saturday afternoon working on arranging for discharge planning with home care as well as continued TPN orders. Patient will also be required to physically be present and appointment with Dr. Ivey's office before February for her to continue being his primary care provider. Patient is afebrile tolerating TPN with no acute issues noted. Continue ostomy care and patient will continue on antibiotics with infectious disease following for now. Will discuss further regarding discharge planning if patient will require antibiotics on discharge. 01/12/2024 Patient is seen in follow-up with no acute overnight issues noted. Scheduled to undergo telehealth visit with Dr. Ivey on Saturday and will await to discuss further regarding discharge planning to make sure home care and TPN orders are arranged prior to discharge. Patient will continue on oral Zyvox and Augmentin for 1 week on discharge per ID recommendations. Continue with local wound care and will arrange for outpatient follow-up visit in Dr. Ivey's office before February 2024. Patient is afebrile denies worsening shortness of breath with no reports of chest pain or palpitations. Patient is tolerating TPN. 01/13/2024 Patient is seen in follow-up today scheduled to undergo telehealth visit with primary care provider today to ensure home care orders are signed along with TPN. Patient also is required to physically be in Dr. Ivey office for a follow-up appointment prior to February 15. Patient is maintained on IV antibiotics per ID and will be going home on a week of oral Avelox and Augmentin on discharge. Patient has been cleared by consultations for discharge home and will arrange for discharge planning in the next 24 hours 01/14/2024 Patient seen and evaluated in follow-up being scheduled for discharge although infusion [employer] reports they are having difficulty mixing TPN formula and will have to be on 01/15/2024. Patient will be monitored overnight and plan on discharge planning with necessary equipment and supplies to home with home care. Patient will follow-up with primary care provider Dr. Ivey outpatient. 01/15/2024 Patient is seen in follow-up today with no acute overnight issues noted. Patient was scheduled for discharge today although now infusion [employer] is refusing the patient to continue providing the TPN. Case management worked with Dr. Ivey's office to obtain a 3-month refill for TPN although no infusion company is refusing to fill the order at all. Case management following working on discharge planning and an accepting infusion company to continue TPN. Patient was placed on TPN and sent home by [facility] surgeon with continued TPN and is refusing any further orders. Will consult dietary and discuss the possible need for continued TPN as patient is also eating. 01/16/2024 Patient has been seen and evaluated this morning with no acute overnight issues noted. Per case management the infusion company will continue to follow with the patient and also contacted Dr. Lee his surgeon out of [facility] who will continue to write the order for TPN. Patient with an extensive high output with history of Crohn's and significant comorbidities including extensive abdominal wounds and nonhealing fistulas, patient needs to continue with TPN supplementation. Patient has been instructed to follow-up with Dr. Ivey prior to February 15 to continue to be accepted into her practice otherwise she will discharge the patient from her practice. Patient will also follow-up with his general surgeon outpatient Dr. Lee and continue current regimen. Patient will continue on 1 week of antibiotics per ID recommendations in the form of Zyvox and Augmentin on discharge. Patient will need home care on discharge which is being arranged. Patient will require a nebulizer on disch arge to manage DuoNeb treatments for COPD. Patient does have oxygen that he chronically wears outpatient and reports he does have the tanks available. Currently no reports of chest pain, shortness of breath, or palpitations. Patient is afebrile. No reports of nausea or vomiting and patient is tolerating diet. Patient will be discharged home today. Extremely guarded prognosis and high risk for readmissions given patient's significant comorbidities and difficulties with traveling as he is mostly bedbound and has significant abdominal wounds. Physical exam: Gen: This is a 48-year-old male who is awake, alert and oriented x 3, well- developed, elderly appearing, obese, appears older than stated age HEENT: Head is atraumatic, normocephalic. Pupils equal, round. Sclerae is anicteric. NECK: Supple. No JVD. No lymphadenopathy. No thyromegaly. LUNGS: Diminished breath sounds bilaterally otherwise clear to auscultation. No wheezes. A few coarse rhonchi noted bilaterally. No intercostal retractions. HEART: Regular rate and rhythm. No murmur. ABDOMEN: Soft. Obese, ostomy noted with liquid stool bowel sounds are present. No masses. No tenderness. EXTREMITIES: No pedal edema. No calf tenderness. BKA noted NEUROLOGICAL: Patient is awake, alert and oriented x3. Cranial nerves 2 through 12 are grossly intact. Diffusely weak Please refer to medication reconciliation sheet for a list of medications. The impression and plan of care has been dictated by Alyssa Hernandez, Nurse Practitioner as directed. Dr. Mo MD I have performed a history and examination and MDM of this patient, discussed the same with the dictator, and agree with the dictator's assessment and plan as written ,documented as a scribe. Based on total visit time, I have performed more than 50% of the visit. Patient Condition at Discharge: Fair Plan - Discharge Summary Discharge Rx Participant: No New Discharge Prescriptions: New [id number] [id number] mg [Neutra-Phos Packet] 1 each PO TID packet Amoxic-Pot Clav 875-125Mg [Augmentin 875-125] 1 tab PO Q12HR 7 Days #14 tab Linezolid [Zyvox] 600 mg PO Q12H 7 Days #14 tab Sodium Chloride 0.65% Nasal [Deep Sea (Saline)] 2 spray NASAL QID PRN ml PRN Reason: Dry Nasal Passages Ipratropium-Albuterol Nebulize [Duoneb 0.5 mg-3 mg/3 ml Soln] 3 ml INHALATION RT-QID #100 each Continue Enoxaparin [Lovenox] 80 mg SQ BID@0900,2100 Pantoprazole [Protonix] 40 mg PO DAILY@0900 Albuterol Sulfate [Albuterol Sulfate Hfa] 1 - 2 puff PO RT-Q4H PRN PRN Reason: Shortness Of Breath Loperamide HCl [Loperamide] 4 mg PO QID@08,12,16,20 Metoprolol Tartrate [Lopressor] 12.5 mg PO BID@0900,2100 Ferrous Sulfate [Iron (65 MG Elemental)] 325 mg PO DAILY@0900 Vitamin A 2,400 mcg PO DAILY@0900 Omeprazole [PriLOSEC] 40 mg PO DAILY #30 cap Cholecalciferol (Vitamin D3) [Vitamin D3 (1250 Mcg = 50,000 Iu)] 1,250 mcg PO MOTH HYDROcodone/APAP 5-325MG [Prairie 5-325] 1 tab PO Q6HR PRN PRN Reason: Moderate Pain (Scale 4 To 6) traZODone HCL [Desyrel] 50 mg PO HS PRN PRN Reason: sleep Heparin Sodium,Porcine/Pf [Heparin 500 Unit/5 ml (100/ml) Flush] 1 dose IV DAILY PRN PRN Reason: picc line flush Sodium Chloride 0.9% [Saline 0.9%] 10 ml IV DAILY PRN PRN Reason: picc line flush Furosemide [Lasix] 40 mg PO BID@0900,1600 #30 tab Discontinued Potassium Chloride ER [K-Dur 20] 20 meq PO DAILY #30 tab amLODIPine [Norvasc] 5 mg PO DAILY #30 tab Discharge Medication List Enoxaparin [Lovenox] 80 mg SQ BID@899,209907/07/22 [History] Pantoprazole [Protonix] 40 mg PO DAILY@89907/07/22 [History] Albuterol Sulfate [Albuterol Sulfate Hfa] 1 - 2 puff PO RT-Q4H PRN 09/10/22 [History] Loperamide HCl [Loperamide] 4 mg PO QID@08,12,16,20 11/10/22 [History] Ferrous Sulfate [Iron (65 MG Elemental)] 325 mg PO DAILY@89912/12/23 [History] Heparin Sodium,Porcine/Pf [Heparin 500 Unit/5 ml (100/ml) Flush] 1 dose IV DAILY PRN 12/12/23 [History] Metoprolol Tartrate [Lopressor] 12.5 mg PO BID@899,209912/12/23 [History] Omeprazole [PriLOSEC] 40 mg PO DAILY #30 cap 12/12/23 [Rx] Sodium Chloride 0.9% [Saline 0.9%] 10 ml IV DAILY PRN 12/12/23 [History] Vitamin A 2,400 mcg PO DAILY@89912/12/23 [History] traZODone HCL [Desyrel] 50 mg PO HS PRN 12/12/23 [History] Cholecalciferol (Vitamin D3) [Vitamin D3 (1250 Mcg = 50,000 Iu)] 1,250 mcg PO MOTH 12/13/23 [History] Furosemide [Lasix] 40 mg PO BID@0900,1600 #30 tab 12/25/23 [Rx] HYDROcodone/APAP 5-325MG [Prairie 5-325] 1 tab PO Q6HR PRN 12/26/23 [History] Amoxic-Pot Clav 875-125Mg [Augmentin 875-125] 1 tab PO Q12HR 7 Days #14 tab 01/14/24 [Rx] Ipratropium-Albuterol Nebulize [Duoneb 0.5 mg-3 mg/3 ml Soln] 3 ml INHALATION RT-QID #100 each 01/14/24 [Rx] Linezolid [Zyvox] 600 mg PO Q12H 7 Days #14 tab 01/14/24 [Rx] [id number] [id number] mg [Neutra-Phos Packet] 1 each PO TID packet 01/14/24 [Rx] Sodium Chloride 0.65% Nasal [Deep Sea (Saline)] 2 spray NASAL QID PRN ml 01/14/24 [Rx] Follow up Appointment(s)/Referral(s): [facility] [NON-STAFF] - Lucien Hernandez MD [REFERRING] - 1 Week ([phone]) Dajuan Lee MD [REFERRING] - 1 Week ([phone] Left Message [phone]) Chong Ivey DO [Primary Care Provider] - 01/20/24 1:15 pm (Appointment for physician to follow for TPN and Home Care. NEED physical appointment before 02-16-24 to remain a patient of Dr. Ivey's) [facility] [REFERRING] - Patient Instructions/Handouts: Failure to Thrive (DC), Community Acquired Pneumonia (DC) Activity/Diet/Wound Care/Special Instructions: [facility] ([phone]) - Call to see if you qualify for in home primary care services when you are unable to go to Dr. Ivey Patient requires a hospital bed because the head of the bed needs to be elevated at 30 degrees or higher most of the time to alleviate pain caused by right BKA and history of CVA. This cannot be done with a regular bed. Activity limited until follow-up Follow-up with primary care provider in the office Follow-up with pulmonary outpatient Continue taking antibiotics as prescribed Continue with TPN and follow-up with primary care provider regarding updated orders Continue local wound care to the ostomy Discharge Disposition: HOME WITH HOME HEALTH SERVICES
[2024-01-16 11:20] LABS: Glucose,Whole Blood 117 mg/dL (70-110)
[2024-01-16 13:01] VITALS: BMI 35.4
--- NOTE | 2024-01-16 13:58 | P.PN ---
Subjective Progress Note Date: 01/16/24 Principal diagnosis: Weakness. On 01/04/2024, the patient is being seen for a follow-up. The patient was weaned off the mechanical ventilator and the patient was extubated to BiPAP and this morning the patient is on 6 L of O2 nasal cannula. Cough remains weak and the patient is unable to bring up much sputum. His early sputum analysis was positive for MRSA. Chest x-ray from today shows a right-sided pleural effusion and atelectatic changes lung base bilaterally. The patient seems to be calm and comfortable and awake and communicating. He is profoundly weak. He remains on norepinephrine which is running at 0.05 mcg/kg/min. Vasopressin was discontinued. IV fluids are currently at KVO. Remains on TPN for nutritional support. Sodium is at 142, potassium 3.6 BUN is 17 with a creatinine of 0.5. CBC still pending for now. The patient remains on Unasyn and vancomycin. Remains on TPN for nutritional support. He is currently off propofol. Ileostomy is functional and there is no evidence of any bleeding from the ileostomy or the enterocutaneous fistulas. On 01/05/2024, the patient is awake and alert and the patient is currently on a BiPAP is alternating between BiPAP pressures of 12/5 with an FiO2 40% and 40 disimpaction by nasal cannula. Chest x-ray showing atelectasis and possibly development of right-sided pleural effusion. The patient was given diuretics yesterday and the patient has diuresed adequately and he has developed hypokalemia. Fluid balance is -2.5 L over the past 24 hours. Urine output is more than 100 cc an hour. Ileostomy output is normal drop 3.7 L over the past 24 hours. Remains on TPN for nutritional support at a rate of 120 cc an hour. The white cell count of 4.3 with a hemoglobin of 8. Sodium is at 146, BUN 16 with a creatinine of 0.5. Potassium level is at 3.2. Serum bicarb is at 32. Awake and alert. Profoundly weak. Communicating. The patient remains on Unasyn and vancomycin. He is currently off pressors. Patient was seen today on 01/06/2024, remains in the ICU, on BiPAP 12/5/40% remains on antibiotics in the form of Unasyn and vancomycin remains on TPN at 120 cc/h. Chest x-ray continues to show atelectasis and small right-sided pleural effusion patient remains on diuretics, and he diuresed adequately. Continues to diurese, and continues to have good urine output. Continues to have significant ileostomy output. Patient remains on TPN for nutritional support. Labs showed WBC count 4.5 hemoglobin 7.9 basic metabolic profile is normal bicarb is 35 renal profile is normal Patient was evaluated on 01/07/2024, remains in the ICU, developed hypotension last night required going back on norepinephrine at 0.05 mcg/kg/min. Today the patient is doing well, his mean arterial pressure is in the 80s, hence I recommended tapering and possibly discontinuation of norepinephrine. Patient was on pressure support 12/5/50%, today he is on nasal cannula, does not seem to be in distress. He feels fine. His left groin arterial line has been removed. Continues to have significant drainage from his ostomy and fistula in the abdomen, and this is connected to a drainage tube. Patient remains on TPN at 1 of 25 cc/h. Chest x-ray continues to show some limited airspace disease in the right lower lobe, patient tells me today that he feels better than he felt yesterday in spite of requiring norepinephrine and I plan to discontinue WBC count is 7.0 hemoglobin is 8.9. Basic metabolic profile is normal renal profile is normal Was seen today on 01/08/2024 remains in the ICU on 2 L nasal cannula receiving TPN remains on antibiotics intermittently on BiPAP 12/5/40%. Patient is an overflow he needs to go to the floor once a bed becomes available, and we will plan to transfer the patient down to 3 S. Relatively asymptomatic, basic metabolic profile is normal BUN is 22 creatinine 0.47 chest x-ray showing improving perihilar and basilar infiltrates Patient was seen today at, remains in the ICU as an overflow, relatively asymptomatic laying in bed, remains on Unasyn and vancomycin, the plan is to eventually transition the patient to Augmentin and Zyvox when he goes home. Or goes to rehab. Patient had Klebsiella pneumonia in the sputum and he had MRSA, remains on TPN at 130 cc/h, intermittently on BiPAP 12/5/40%, patient seems to be comfortable presently on 2 L nasal cannula and not in distress. And he has no active symptoms labs today were reviewed, he had relatively normal basic metabolic profile and liver profile. BUN however is 2.5. The patient is seen today January 10, 2024 in follow-up on the regular medical floor. He was transferred out of the intensive care unit yesterday. He is currently resting comfortably in bed. Awake and alert in no acute distress. Is maintaining good O2 saturations in the 90s on 2 L/min per nasal cannula. He is afebrile. Hemodynamically stable. Sodium 135. Potassium 4.0. Bicarb 28. BUN 18. Creatinine 0.51. Glucose 109. He remains on Unasyn and vancomycin. Continued on lipids and TPN at 83 mL/h. Lovenox for DVT prophylaxis. Bronchioloalveolar lavage from 12/31/2023 was positive for MRSA, Klebsiella pneumoniae, Bella glabrata, urine was positive for Klebsiella pneumoniae. The patient is seen today January 11, 2024 in follow-up on the regular medical floor. He is awake and alert in no acute distress. He is resting in bed. He denies any worsening shortness of breath, cough or congestion. He is candis ntaining good O2 saturations up to 100% on 2 L/min per nasal cannula. He is afebrile. Hemodynamically stable. Bronchial wash cultures were positive for Klebsiella pneumoniae. Urine culture was positive for Klebsiella pneumoniae. Previous bronch culture was positive for MRSA. Sodium 137. Potassium 3.9. Bicarb 31. BUN 16. Creatinine 0.59. Glucose 145. Vancomycin trough 15.0. He remains on Unasyn and vancomycin. He is on Lovenox for DVT prophylaxis. TPN and lipids for nutritional support. Seen today January 12, 2024 in follow-up on the regular medical floor. He is resting in bed. Awake and alert in no acute distress. He is maintaining good O2 saturations in the 90s on 2 L/min per nasal cannula. He is afebrile. Hemodynamically stable. That is post 2 units of packed red blood cells this admission. Current hemoglobin 8.9. Bronchial wash cultures were positive for Klebsiella pneumoniae. Urine culture was positive for Klebsiella pneumoniae. Previous bronch culture was positive for MRSA. Sodium 139. Potassium 4.1. Bicarb 30. BUN 18. Creatinine 0.55. Glucose 124. He remains on vancomycin and Unasyn. Being nourished with TPN and lipids. Therapeutic Lovenox. The patient is seen today January 13, 2024 in follow-up on the regular medical floor. He is awake and alert in no acute distress. Resting comfortably in bed. He denies any worsening shortness of breath, cough or congestion. Is maintaining good O2 saturation in the 90s on 3 L/min per nasal cannula. Sodium 137. Potassium 3.9. Bicarb 31. BUN 18. Creatinine 0.50. Glucose 151. Vancomycin level 14.8. And Unasyn. Therapeutic Lovenox. Remains nourished with TPN at 98 mL/h and lipids. The patient is seen today January 14 2024 in follow-up on the regular medical floor. He is resting comfortably in bed. Awake and alert in no acute distress. He denies any worsening shortness of breath, cough or congestion. He is maintaining good O2 saturations in the 90s on 3 L/min per per minute per nasal cannula. He is receiving TPN at 98 mL/h. Receives lipids Sundays. Therapeutic Lovenox. He is continued on vancomycin and Unasyn. Sodium 136. Potassium 4.5. Bicarb 31. BUN 18. Creatinine 0.43. Glucose 152. The patient is seen today January 15, 2024 in follow-up on the regular medical floor. He is resting in bed. Awake and alert in no acute distress. Maintain ing O2 saturation in the 90s on 3 L/min per nasal cannula. He continues to use BiPAP at night 12/5 and 40% FiO2. TPN at 98 mL/h. Continued on vancomycin and Unasyn. Sodium 136. Potassium 4.0. Bicarb 33. BUN 17. Creatinine 0.47. Glucose 166. Progress note dated January 16, 2024. The patient is again seen today in room 458. The patient is currently on room air. He is receiving IV vancomycin, TPN at 98 cc/h, and saline at 10 cc an hour. Apparently, the patient is being considered for possible discharge home. Current labs include sodium 135, potassium 4.1, chlorides 102, CO2 31, BUN 17, creatinine 0.52. Glucose is 117. Calcium 8.2. Magnesium 2. Phosphorus 3.5. Objective - Vital Signs Vital signs: Vital Signs Temp 98.5 F 01/16/24 08:00 Pulse 84 01/16/24 11:45 Resp 18 01/16/24 11:45 BP 131/78 01/16/24 08:00 Pulse Ox 98 01/16/24 01:45 FiO2 40 01/16/24 08:35 Intake & Output 01/15/24 01/16/24 01/16/24 18:59 06:59 18:59 Intake Total 1019.5 Output Total 3300 3250 Balance -3300 -2230.5 Weight 112.2 kg Intake: Intake, IV Titration 1019.5 Amount Mvi, Adult No.4 with Vit 1019.5 K 10 ml Trace (Conc-1Ml/ Dose) 1 ml Sodium Chloride 4Meq/ml Vial 30 meq Magnesium Sulfate gm 0.5 gm In Amino Acid 5%- D20w+Lytes*E* 1,000 ml @ 98 mls/hr IV .BY DURATION [facility] Rx#:[id number] Output: Urine 2300 850 Stool 2400 Urine/Stool Mix 1000 Other: Voiding Method External Catheter External Catheter ABP, PAP, CO, CI - Last Documented Arterial Blood Pressure 108/54 - Exam No acute distress, oriented 3. Currently on room air. HEENT examination is grossly unremarkable. Mucous membranes are moist. No oral lesions. Neck supple. Full range of motion. No adenopathy thyromegaly or neck vein distention. Cardiovascular examination reveals regular rhythm rate. S1-S2 normal. No S3 or S4. No discernible murmur noted. Lungs reveal clear breath sounds. Her sounds are equal bilaterally. No adventitious lung sounds including wheezes rhonchi or crackles. Abdomen exam reveals an ileostomy, with stool. 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 Multiple surgical scars are noted throughout the abdomen. Extremities are intact. Right BKA. No cyanosis or clubbing. Skin is without rash or lesion. Neurologic examination is brief but nonfocal. - Labs CBC & Chem 7: 01/07/24 05:23 01/16/24 03:27 Labs: Abnormal Lab Results - Last 24 Hours (Table) 01/15/24 01/16/24 01/16/24 Range/Units 16:34 00:04 03:27 Sodium 135 L (137-145) mmol/L Carbon Dioxide 31 H (22-30) mmol/L Creatinine 0.52 L (0.66-1.25) mg/dL Glucose 145 H (74-99) mg/dL POC Glucose (mg/dL) 195 H 128 H (70-110) mg/dL Calcium 8.2 L (8.4-10.2) mg/dL 01/16/24 01/16/24 Range/Units 06:06 11:18 Sodium (137-145) mmol/L Carbon Dioxide (22-30) mmol/L Creatinine (0.66-1.25) mg/dL Glucose (74-99) mg/dL POC Glucose (mg/dL) 153 H 117 H (70-110) mg/dL Calcium (8.4-10.2) mg/dL Assessment and Plan Assessment: Acute hypoxic respiratory failure, with bilateral pneumonia in the lung bases/atelectasis and the bronchial lavage was positive for MRSA and Klebsiella pneumonia. Acute blood loss anemia secondary to GI blood losses possible abdominal wall bleeding. 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 Gram-negative urinary tract infection secondary to Klebsiella. Septic shock, resolved . Electrolyte imbalance with hypomagnesium , hypophosphatemia and hypokalemia. Recent history of ventilator dependent respiratory failure, secondary to pneumonia, microbiology from BAL positive for haemophilus influenzae. History of DVT, on therapeutic dose of Lovenox. History of Crohn's disease complicated by bowel perforation status post colectomy and diverting ileostomy. 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 Currently receiving TPN for nutritional support. 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 History of tracheostomy and reversal. Plan: Plan dated January 16, 2024. The patient may be discharged home possibly today. Labs, x-rays, medications are reviewed. The patient remains on room air. The patient is on IV vancomycin, and is also receiving TPN at 98 cc an hour, and saline at 10 cc an hour. Labs, x-rays, and all medications are reviewed. Prognosis is certainly guarded. We will continue to follow should the patient not be discharged. Respiratory status is currently stable. Time with Patient: Less than 30
--- NOTE | 2024-01-16 14:51 | P.PN ---
Subjective Progress Note Date: 01/16/24 Principal diagnosis: Reason for follow-up is sepsis UTI/pneumonia Patient is a 48-year-old male with a past medical history difficult for CVA TIA DVT did have a history of Crohn's disease with bowel perforation requiring ileostomy and also have a enterocutaneous fistula patient initially presentation to the hospital was weakness not feeling well subsequent did have w orsening of the respiratory status requiring intubation did have a fever concerning for possible pneumonia. On today's evaluation that is 01/16/2024,the patient remains to be afebrile, patient is on room air not requiring supplemental oxygen and denies any shortness of breath no chest pain or cough.Patient denies having any nausea or vomiting, no abdominal pain and no new symptoms mention feeling better. Patient did have a creatinine 0.52 electrolytes are normal no CBC was done today Objective - Vital Signs Vital signs: Vital Signs Temp 98.5 F 01/16/24 08:00 Pulse 84 01/16/24 11:45 Resp 18 01/16/24 11:45 BP 131/78 01/16/24 08:00 Pulse Ox 98 01/16/24 01:45 FiO2 40 01/16/24 08:35 Intake & Output 01/15/24 01/16/24 01/16/24 18:59 06:59 18:59 Intake Total 1019.5 Output Total 3300 3250 Balance -3300 -2230.5 Weight 112.2 kg Intake: Intake, IV Titration 1019.5 Amount Mvi, Adult No.4 with Vit 1019.5 K 10 ml Trace (Conc-1Ml/ Dose) 1 ml Sodium Chloride 4Meq/ml Vial 30 meq Magnesium Sulfate gm 0.5 gm In Amino Acid 5%- D20w+Lytes*E* 1,000 ml @ 98 mls/hr IV .BY DURATION [facility] Rx#:[id number] Output: Urine 2300 850 Stool 2400 Urine/Stool Mix 1000 Other: Voiding Method External Catheter External Catheter ABP, PAP, CO, CI - Last Documented Arterial Blood Pressure 108/54 - Exam GENERAL DESCRIPTION: Middle-age male lying in bed in no distress RESPIRATORY SYSTEM: Unlabored breathing , decreased breath sounds at bases HEART: S1 S2 regular rate and rhythm , ABDOMEN: Soft , no tenderness EXTREMITIES: Diffuse swelling to the leg no redness, 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 - Labs CBC & Chem 7: 01/07/24 05:23 01/16/24 03:27 Labs: Abnormal Lab Results - Last 24 Hours (Table) 01/15/24 01/16/24 01/16/24 Range/Units 16:34 00:04 03:27 Sodium 135 L (137-145) mmol/L Carbon Dioxide 31 H (22-30) mmol/L Creatinine 0.52 L (0.66-1.25) mg/dL Glucose 145 H (74-99) mg/dL POC Glucose (mg/dL) 195 H 128 H (70-110) mg/dL Calcium 8.2 L (8.4-10.2) mg/dL 01/16/24 01/16/24 Range/Units 06:06 11:18 Sodium (137-145) mmol/L Carbon Dioxide (22-30) mmol/L Creatinine (0.66-1.25) mg/dL Glucose (74-99) mg/dL POC Glucose (mg/dL) 153 H 117 H (70-110) mg/dL Calcium (8.4-10.2) mg/dL Assessment and Plan (1) Pneumonia Current Visit: Yes Status: Acute Code(s): J18.9 - PNEUMONIA, UNSPECIFIED ORGANISM SNOMED Code(s): 742462427 (2) Sepsis Current Visit: No Status: Acute Code(s): A41.9 - SEPSIS, UNSPECIFIED ORGANISM SNOMED Code(s): 14772166 Plan: 1patient with sepsis/septic shock in this patient who did have a fever elevated white count high clinical suspicion of possible left lower lobe pneumonia in this patient who did have multiple comorbidities and complicated intra-abdominal history with history of bowel perforation and did have ileostomy and enterocutaneous fistula keeping in mind the patient has been in and out of the hospital we will need to cover for the resistant gram-positive as well as gram- negative pathogen 2-patient bronchial culture grew MRSA urine is growing Klebsiella that is sensitive to Unasyn, repeat bronchoscopy cultures are growing Klebsiella and Bella glabrata 3patient did have resolution of his fever and the patient white count normalized 4patient has received adequate antibiotic therapy during this hospital stay and will recommend no antibiotic on discharge monitor clinical course closely Dictation was produced using [employer] dictation software. please excuse any grammatical, word or spelling errors. Time with Patient: Less than 30
[2024-01-16 15:20] VITALS: RESP 16
[2024-01-16 15:30] VITALS: PULSE 88
[2024-01-16] MEDS ORDERED: INSULIN ASPART (NovoLOG) 100 UNIT/ML VIAL SQ SCH ×2 (16:45→18:00)
[2024-01-16] MEDS ORDERED: 1: MVI, ADULT NO.4 WITH VIT K 10 ML, TRACE (CONC-1ML/DOSE) 1 ML, SODIUM CHLORIDE 4MEQ/ML IV SCH (20:45)
[2024-01-17] MEDS ORDERED: VANCOMYCIN TROUGH DUE 1 EACH MISC MISCELLANE ONE (09:00)
== END 2024-01-16 18:19 | disposition home health service (06) | DRG 981 ==
LOC: EC 11:47 → 6NMEDSUR 13:17 → 5NMEDONC 16:32 → 3SCARD 12-29 13:06 → 2SICU 12-29 20:23 → OBSVTOIN 12-30 08:39 → 4SSUR 01-09 12:20
PROVIDERS: ADMIT Hospitalist; ATTEND Hospitalist
PROC: 3E0436Z Introduction of Nutritional Substance into Central Vein, Percutaneous Approach (ICD-10-PCS; 2023-12-26)
PROC: 30233N1 Transfusion of Nonautologous Red Blood Cells into Peripheral Vein, Percutaneous Approach (ICD-10-PCS; 2023-12-29)
PROC: 5A1945Z Respiratory Ventilation, 24-96 Consecutive Hours (ICD-10-PCS; 2023-12-31)
PROC: 0BH18EZ Insertion of Endotracheal Airway into Trachea, Via Natural or Artificial Opening Endoscopic (ICD-10-PCS; 2023-12-31)
PROC: 0B9J8ZX Drainage of Left Lower Lung Lobe, Via Natural or Artificial Opening Endoscopic, Diagnostic (ICD-10-PCS; 2023-12-31 13:41)
PROC: 04HY32Z Insertion of Monitoring Device into Lower Artery, Percutaneous Approach (ICD-10-PCS; 2024-01-01)
PROC: 4A133B1 Monitoring of Arterial Pressure, Peripheral, Percutaneous Approach (ICD-10-PCS; 2024-01-01)
PROC: 4A133J1 Monitoring of Arterial Pulse, Peripheral, Percutaneous Approach (ICD-10-PCS; 2024-01-01)
PROC: 0WCQ8ZZ Extirpation of Matter from Respiratory Tract, Via Natural or Artificial Opening Endoscopic (ICD-10-PCS; principal; 2024-01-03)
DX: T83.511A Infection and inflammatory reaction due to indwelling urethral catheter, initial encounter (principal); A41.89 Other specified sepsis; R65.21 Severe sepsis with septic shock; N17.0 Acute kidney failure with tubular necrosis; R57.1 Hypovolemic shock; J96.21 Acute and chronic respiratory failure with hypoxia; J14 Pneumonia due to Hemophilus influenzae; K94.11 Enterostomy hemorrhage; K63.2 Fistula of intestine; E44.0 Moderate protein-calorie malnutrition; E87.4 Mixed disorder of acid-base balance; D62 Acute posthemorrhagic anemia; I69.354 Hemiplegia and hemiparesis following cerebral infarction affecting left non-dominant side; K50.911 Crohn's disease, unspecified, with rectal bleeding; E87.1 Hypo-osmolality and hyponatremia; Z89.511 Acquired absence of right leg below knee; N39.0 Urinary tract infection, site not specified; R62.7 Adult failure to thrive; J39.8 Other specified diseases of upper respiratory tract; J98.09 Other diseases of bronchus, not elsewhere classified; B96.1 Klebsiella pneumoniae [K. pneumoniae] as the cause of diseases classified elsewhere; E83.39 Other disorders of phosphorus metabolism; Z86.74 Personal history of sudden cardiac arrest; E66.9 Obesity, unspecified; J98.4 Other disorders of lung; E86.1 Hypovolemia; E87.6 Hypokalemia; E83.42 Hypomagnesemia; E87.5 Hyperkalemia; R73.9 Hyperglycemia, unspecified; R53.81 Other malaise; Y84.6 Urinary catheterization as the cause of abnormal reaction of the patient, or of later complication, without mention of misadventure at the time of the procedure; Z68.35 Body mass index [BMI] 35.0-35.9, adult; Z90.49 Acquired absence of other specified parts of digestive tract; Z79.899 Other long term (current) drug therapy; Z87.891 Personal history of nicotine dependence; Z86.718 Personal history of other venous thrombosis and embolism; Z86.14 Personal history of Methicillin resistant Staphylococcus aureus infection
CPT/HCPCS: 31624; 31645; 36410; 36415; 71045; 74174; 76937; 80048; 80051; 80053; 80202; 81003; 82330; 82533; 82805; 83036; 83605; 83735; 84100; 84132; 84145; 84478; 85025; 85027; 85610; 85730; 86850; 86900; 86901; 86920; 87040; 87070; 87077; 87086; 87102; 87116; 87186; 87205; 87206; 87324; 87496; 87498; 87502; 87529; 87634; 87635; 87798; 94002; 94003; 94640; 94660; 94760; 99285

== ENCOUNTER 2024-02-23 20:16 | Emergency (ER) | payer OTHER ==
--- NOTE | 2024-02-23 20:18 | ED ---
SOB HPI - General Stated Complaint: Shortness of Breath Time Seen by Provider: 02/23/24 20:17 Source: RN notes reviewed, old records reviewed Mode of arrival: ambulatory Limitations: no limitations - History of Present Illness Initial Comments: This is a 48-year-old male to ER for dyspnea shortness of breath with history of shortness of breath coming in with worsening shortness of breath here in the ER though improved in route. No chest pain MD Complaint: shortness of breath, cough -: days(s) Severity: severe Severity scale (1-10): 9 Consistency: constant Improves With: nothing Worsens With: nothing Known History Of: COPD, asthma Context: recent URI Associated Symptoms: denies other symptoms - Related Data Home Medications Medication Instructions Recorded Confirmed Enoxaparin [Lovenox] 80 mg SQ BID@899,209907/07/22 12/26/23 Pantoprazole [Protonix] 40 mg PO DAILY@89907/07/22 12/26/23 Albuterol Sulfate [Albuterol 1 - 2 puff PO RT-Q4H PRN 09/10/22 12/26/23 Sulfate Hfa] Loperamide HCl [Loperamide] 4 mg PO QID@08,12,16,20 11/10/22 12/26/23 Ferrous Sulfate [Iron (65 MG 325 mg PO DAILY@89912/12/23 12/26/23 Elemental)] Heparin Sodium,Porcine/Pf [Heparin 1 dose IV DAILY PRN 12/12/23 12/26/23 500 Unit/5 ml (100/ml) Flush] Metoprolol Tartrate [Lopressor] 12.5 mg PO BID@899,209912/12/23 12/26/23 Sodium Chloride 0.9% [Saline 0.9%] 10 ml IV DAILY PRN 12/12/23 12/26/23 Vitamin A 2,400 mcg PO DAILY@89912/12/23 12/26/23 traZODone HCL [Desyrel] 50 mg PO HS PRN 12/12/23 12/26/23 Cholecalciferol (Vitamin D3) 1,250 mcg PO MOTH 12/13/23 12/26/23 [Vitamin D3 (1250 Mcg = 50,000 Iu)] HYDROcodone/APAP 5-325MG [[place] 1 tab PO Q6HR PRN 12/26/23 12/26/23 5-325] Previous Rx's Medication Instructions Recorded Omeprazole [PriLOSEC] 40 mg PO DAILY #30 cap 12/12/23 Furosemide [Lasix] 40 mg PO BID@0900,1600 #30 tab 12/25/23 Amoxic-Pot Clav 875-125Mg 1 tab PO Q12HR 7 Days #14 tab 01/14/24 [Augmentin 875-125] Ipratropium-Albuterol Nebulize 3 ml INHALATION RT-QID #100 each 01/14/24 [Duoneb 0.5 mg-3 mg/3 ml Soln] Linezolid [Zyvox] 600 mg PO Q12H 7 Days #14 tab 01/14/24 Kbcus-Bra-Hiaq 280-160-250 mg 1 each PO TID packet 01/14/24 [Neutra-Phos Packet] Sodium Chloride 0.65% Nasal [Deep 2 spray NASAL QID PRN ml 01/14/24 Sea (Saline)] Allergies Allergy/AdvReac Type Severity Reaction Status Date / Time No Known Allergies Allergy Verified 02/23/24 20:25 Review of Systems ROS Statement: Those systems with pertinent positive or pertinent negative responses have been documented in the HPI. ROS Other: All systems not noted in ROS Statement are negative. Past Medical History Past Medical History: CVA/TIA, Deep Vein Thrombosis (DVT) Additional Past Medical History / Comment(s): Progressing left upper thigh pain and swelling and left leg weakness. 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 Crohns. Ostomy Bag placed in 09/2021. History of Any Multi-Drug Resistant Organisms: MRSA Date of last positivie culture/infection: 12/14/23 MDRO Source:: MRSA- nasal Past Surgical History: Cholecystectomy, Orthopedic Surgery Additional Past Surgical History / Comment(s): Arm surgery, right leg below knee amputation, ostomy (2021) Past Anesthesia/Blood Transfusion Reactions: No Reported Reaction Past Psychological History: No Psychological Hx Reported Smoking Status: Former smoker Past Alcohol Use History: None Reported Additional Past Alcohol Use History / Comment(s): QUIT SMOKING IN 2017, STARTED SMOKING AT AGE 16, 1PPD. Past Drug Use History: None Reported - Past Family History Father Additional Family Medical History / Comment(s): DAD IN HIS TWENTIES - CAUSE UNKNOWN. Mother Family Medical History: Diabetes Mellitus Brother(s) Family Medical History: Cancer Additional Family Medical History / Comment(s): Kidney cancer as a baby. General Exam General appearance: alert, in no apparent distress Head exam: Present: atraumatic, normocephalic, normal inspection Eye exam: Present: normal appearance, PERRL, EOMI. Absent: scleral icterus, conjunctival injection, periorbital swelling ENT exam: Present: normal exam, mucous membranes moist Neck exam: Present: normal inspection. Absent: tenderness, meningismus, lymphadenopathy Respiratory exam: Present: normal lung sounds bilaterally. Absent: respiratory distress, wheezes, rales, rhonchi, stridor Cardiovascular Exam: Present: regular rate, normal rhythm, normal heart sounds. Absent: systolic murmur, diastolic murmur, rubs, gallop, clicks GI/Abdominal exam: Present: soft, normal bowel sounds. Absent: distended, tenderness, guarding, rebound, rigid Extremities exam: Present: normal inspection, full ROM, normal capillary refill. Absent: tenderness, pedal edema, joint swelling, calf tenderness Back exam: Present: normal inspection Neurological exam: Present: alert, oriented X3, CN II-XII intact Psychiatric exam: Present: normal affect, normal mood Skin exam: Present: warm, dry, intact, normal color. Absent: rash Course Vital Signs 02/23/24 02/23/24 20:17 21:44 Temperature 97.9 F Pulse Rate 99 92 Respiratory 20 20 Rate Blood Pressure 121/74 118/64 O2 Sat by Pulse 100 Oximetry - Reevaluation(s) Reevaluation #1: 02/23/24 20:56 Medical records reviewed Reevaluation #4: Was pt. sent in by a medical professional or institution (, PA, NIGHT NURSE, urgent care, hospital, or snf...) When possible be specific @ -no Did you speak to anyone other than the patient for history (EMS, parent, family, police, friend...)? What history was obtained from this source @ -no Did you review nursing and triage notes (agree or disagree)? Why? @ -agree Are old charts reviewed (outside hosp., previous admission, EMS record, old EKG, old radiological studies, urgent care reports/EKG's, snf records)? Report findings @ -yes Differential Diagnosis (chest pain, altered mental status, abdominal pain women, abdominal pain men, vaginal bleeding, weakness, fever, dyspnea, syncope, headache, dizziness, GI bleed, back pain, seizure, CVA, palpatations, mental health, musculoskeletal)? @ -prior EKG interpreted by me (3pts min.). @ -yes X-rays interpreted by me (1pt min.). @ -yes negative for acute disease CT interpreted by me (1pt min.). @ -no U/S interpreted by me (1pt. min.). @ -no What testing was considered but not performed or refused? (CT, X-rays, U/S, labs)? Why? @ -none What meds were considered but not given or refused? Why? @ -none Did you discuss the management of the patient with other professionals (professionals i.e. , PA, NIGHT NURSE, lab, RT, psych nurse, licensed social worker, purchasing supervisor, teacher, [employer] officer, case technician)? Give summary @ -no Was smoking cessation discussed for >3mins.? @ -no Was critical care preformed (if so, how long)? @ -no Were there social determinants of health that impacted care today? How? (Homelessness, low income, unemployed, alcoholism, drug addiction, transportation, low edu. Level, literacy, decrease access to med. care, correction, rehab)? @ -none Was there de-escalation of care discussed even if they declined (Discuss DNR or withdrawal of care, Hospice)? DNR status @ -no What co-morbidities impacted this encounter? (DM, HTN, Smoking, COPD, CAD, Cancer, CVA, ARF, Chemo, Hep., AIDS, mental health diagnosis, sleep apnea, morbid obesity)? @ -none Was patient admitted / discharged? Hospital course, mention meds given and route, prescriptions, significant lab abnormalities, going to OR and other pertinent info. @ - Undiagnosed new problem with uncertain prognosis? @ -no Drug Therapy requiring intensive monitoring for toxicity (Heparin, Nitro, Insulin, Cardizem)? @ -no Were any procedures done? @ -no Diagnosis/symptom? @ - Acute, or Chronic, or Acute on Chronic? @ -Acute Uncomplicated (without systemic symptoms) or Complicated (systemic symptoms)? @ -Complicated Side effects of treatment? @ -no Exacerbation, Progression, or Severe Exacerbation? @ -exacerbation Poses a threat to life or bodily function? How? (Chest pain, [place], ME, pneumonia, PE, COPD, DKA, ARF, appy, cholecystitis, CVA, Diverticulitis, Homicidal, Suicidal, threat to staff... and all critical care pts) @ -yes Reevaluation #5: Differential Dyspnea: Coronary syndrome, arrhythmia, tamponade, asthma, COPD, pulmonary embolism, pneumonia, pneumothorax, pulmonary effusion, anaphylaxis, diabetic ketoacidosis, flailed chest, pulmonary contusion, diaphragmatic rupture, anemia, neuromuscular, this is not meant to be an all-inclusive list. Medical Decision Making - Lab Data Result diagrams: 02/23/24 20:17 02/23/24 20:17 Lab Results 02/23/24 02/23/24 02/23/24 Range/Units 20:17 20:17 20:17 WBC 6.0 (3.8-10.6) k/uL RBC 4.12 L (4.30-5.90) m/uL Hgb 10.7 L (13.0-17.5) gm/dL Hct 36.3 L (39.0-53.0) % MCV 88.2 D (80.0-100.0) fL MCH 26.0 (25.0-35.0) pg MCHC 29.5 L (31.0-37.0) g/dL RDW 17.0 H (11.5-15.5) % Plt Count 272 (150-450) k/uL MPV 8.9 Neutrophils % 59 % Lymphocytes % 30 % Monocytes % 6 % Eosinophils % 2 % Basophils % 0 % Neutrophils # 3.6 (1.3-7.7) k/uL Lymphocytes # 1.8 (1.0-4.8) k/uL Monocytes # 0.3 (0-1.0) k/uL Eosinophils # 0.1 (0-0.7) k/uL Basophils # 0.0 (0-0.2) k/uL Hypochromasia Marked Poikilocytosis Slight Anisocytosis Slight PT 10.7 (10.0-12.5) sec INR 1.0 (<1.2) APTT 25.7 (22.0-30.0) sec Sodium 137 (137-145) mmol/L Potassium 4.2 (3.5-5.1) mmol/L Chloride 93 L (98-107) mmol/L Carbon Dioxide 43 H* (22-30) mmol/L Anion Gap 1 mmol/L BUN 19 (9-20) mg/dL Creatinine 0.50 L (0.66-1.25) mg/dL Est GFR (CKD-EPI)AfAm >90 (>60 ml/min/1.73 sqM) Est GFR (CKD-EPI)NonAf >90 (>60 ml/min/1.73 sqM) Glucose 98 (74-99) mg/dL Calcium 8.6 (8.4-10.2) mg/dL Magnesium 2.2 (1.6-2.3) mg/dL Total Bilirubin 0.8 (0.2-1.3) mg/dL AST 30 (17-59) U/L ALT 32 (4-49) U/L Alkaline Phosphatase 116 (38-126) U/L Troponin I (0.000-0.034) ng/mL NT-Pro-B Natriuret Pep <20 pg/mL Total Protein 8.3 H (6.3-8.2) g/dL Albumin 3.5 (3.5-5.0) g/dL 02/23/24 Range/Units 20:17 WBC (3.8-10.6) k/uL RBC (4.30-5.90) m/uL Hgb (13.0-17.5) gm/dL Hct (39.0-53.0) % MCV (80.0-100.0) fL MCH (25.0-35.0) pg MCHC (31.0-37.0) g/dL RDW (11.5-15.5) % Plt Count (150-450) k/uL MPV Neutrophils % % Lymphocytes % % Monocytes % % Eosinophils % % Basophils % % Neutrophils # (1.3-7.7) k/uL Lymphocytes # (1.0-4.8) k/uL Monocytes # (0-1.0) k/uL Eosinophils # (0-0.7) k/uL Basophils # (0-0.2) k/uL Hypochromasia Poikilocytosis Anisocytosis PT (10.0-12.5) sec INR (<1.2) APTT (22.0-30.0) sec Sodium (137-145) mmol/L Potassium (3.5-5.1) mmol/L Chloride (98-107) mmol/L Carbon Dioxide (22-30) mmol/L Anion Gap mmol/L BUN (9-20) mg/dL Creatinine (0.66-1.25) mg/dL Est GFR (CKD-EPI)AfAm (>60 ml/min/1.73 sqM) Est GFR (CKD-EPI)NonAf (>60 ml/min/1.73 sqM) Glucose (74-99) mg/dL Calcium (8.4-10.2) mg/dL Magnesium (1.6-2.3) mg/dL Total Bilirubin (0.2-1.3) mg/dL AST (17-59) U/L ALT (4-49) U/L Alkaline Phosphatase (38-126) U/L Troponin I <0.012 (0.000-0.034) ng/mL NT-Pro-B Natriuret Pep pg/mL Total Protein (6.3-8.2) g/dL Albumin (3.5-5.0) g/dL - EKG Data -: EKG Interpreted by Me (EKG is sinus 92 NE 189 QRS 101 QTc 387) Disposition Clinical Impression: Weakness, Dyspnea Disposition: HOME SELF-CARE Condition: Fair Instructions (If sedation given, give patient instructions): Dyspnea (ED) Is patient prescribed a controlled substance at d/c from ED?: No Referrals: Chong Ivey DO [Primary Care Provider] - 1-2 days Time of Disposition: 22:30
[2024-02-23 20:25] VITALS: TEMP 97.9
--- NOTE | 2024-02-23 20:58 | XR ---
EXAMINATION TYPE: XR chest 1V portable DATE OF EXAM: 02/23/2024 8:52 PM COMPARISON: Previous chest radiograph 01/08/2024. CLINICAL INDICATION: Male, 48 years old with history of sob; [facility] TECHNIQUE: XR chest 1V portable Frontal view of the chest. FINDINGS: Cardiomegaly. Low lung volumes limit exam. Small bilateral pleural effusions. Left chest wall port or dialysis catheter with distal catheter tip terminating at the cavoatrial junc tion. No pneumothorax. No acute osseous abnormality. Post surgical changes near the right thoracic inlet. IMPRESSION: Cardiomegaly and trace bilateral pleural effusions. [facility], , 02/23/2024 8:55 PM
[2024-02-23 21:07] LABS: Anisocytosis Slight; Basophils % (A) 0 %; Eosinophils # (A) 0.1 k/uL (0-0.7); Eosinophils % (A) 2 %; HCT 36.3 % (39.0-53.0); HGB 10.7 gm/dL (13.0-17.5); Hypochromasia Marked; Lymphocytes # (A) 1.8 k/uL (1.0-4.8); Lymphocytes % (A) 30 %; MCHC 29.5 g/dL (31.0-37.0); Mean Platelet Volume 8.9; Monocytes # (A) 0.3 k/uL (0-1.0); Monocytes % (A) 6 %; Neutrophils # (A) 3.6 k/uL (1.3-7.7); Neutrophils % (A) 59 %; Platelet Count 272 k/uL (150-450); Poikilocytosis Slight; RBC 4.12 m/uL (4.30-5.90)
[2024-02-23 21:15] LABS: MCV 88.2 fL (80.0-100.0)
[2024-02-23 21:22] LABS: ALT 32 U/L (4-49); AST 30 U/L (17-59); African American GFR (CKD) >90 (>60 ml/min/1.73 sqM); Albumin 3.5 g/dL (3.5-5.0); Alkaline Phosphatase 116 U/L (38-126); Blood Urea Nitrogen 19 mg/dL (9-20); Calcium 8.6 mg/dL (8.4-10.2); Chloride 93 mmol/L (98-107); Glucose 98 mg/dL (74-99); Magnesium 2.2 mg/dL (1.6-2.3); Non-African American GFR(CKD) >90 (>60 ml/min/1.73 sqM); Partial Thromboplastin Time 25.7 sec (22.0-30.0); Potassium 4.2 mmol/L (3.5-5.1); Prothrombin Time 10.7 sec (10.0-12.5); Sodium 137 mmol/L (137-145); Total Bilirubin 0.8 mg/dL (0.2-1.3); Total Protein 8.3 g/dL (6.3-8.2)
[2024-02-23 21:28] LABS: Anion Gap 1 mmol/L
[2024-02-23 21:30] LABS: NT-Pro-B-Type Natriuretic Pept <20 pg/mL
[2024-02-23 21:35] LABS: Carbon Dioxide 43 mmol/L (22-30)
[2024-02-23] MEDS: IPRATROPIUM-ALBUTEROL 3 ML NEB INHALATION STA (22:15)
[2024-02-23 22:17] VITALS: BP 118/70
[2024-02-23] MEDS: SODIUM CHLORIDE 0.9% 1,000 ML IV STA ×2 (22:26→22:27)
[2024-02-23] MEDS: BENZONATATE 100 MG CAP PO STA (22:43)
[2024-02-23] MEDS: guaiFENesin-DM 600/30MG 1 EACH TAB.ER.12H PO STA (22:43)
[2024-02-23] MEDS: DEXAMETHASONE SOD PHOSPHATE 10 MG/ML 1 ML VIAL IVP STA (22:43)
[2024-02-23 22:49] VITALS: PULSE 90; RESP 18
== END 2024-02-23 23:48 | disposition home or self-care (01) ==
LOC: EC 20:16
DX: R53.1 Weakness (principal); R06.00 Dyspnea, unspecified; Z86.73 Personal history of transient ischemic attack (TIA), and cerebral infarction without residual deficits; Z87.891 Personal history of nicotine dependence
CPT/HCPCS: 36415; 94640; 93005; 83880; 80053; 83735; 84484; 85025; 85610; 85730; 87636; 71045; 99285; 96374; J1100

== ENCOUNTER 2024-02-25 14:46 | Inpatient (IN) | payer MEDICARE, OTHER ==
--- NOTE | 2024-02-25 15:29 | ED ---
SOB HPI - General Chief Complaint: Shortness of Breath Stated Complaint: CHAR Time Seen by Provider: 02/25/24 15:17 Source: EMS, RN notes reviewed, old records reviewed Mode of arrival: EMS Limitations: no limitations - History of Present Illness Initial Comments: This is a 48 male to ER for evaluation. Patient coming in for shortness of breath and recent hospital evaluation for similar. Patient actually hit has multiple recent evaluations for low pulse oxygenation and difficulty breathing perceived by the patient himself. Patient states symptoms are worse currently MD Complaint: shortness of breath, cough, anxiety -: days(s) Severity: moderate Severity scale (1-10): 7 Consistency: constant Improves With: nothing Known History Of: congestive heart failure, recurrent pneumonia, aspiration pneumonia Context: recent URI, anxiety, recent illness Associated Symptoms: cough, sputum production Treatments Prior to Arrival: oxygen - Related Data Home Medications Medication Instructions Recorded Confirmed Enoxaparin [Lovenox] 80 mg SQ BID@0900,209907/07/22 02/25/24 Pantoprazole [Protonix] 40 mg PO DAILY@30 07/07/22 02/25/24 Albuterol Sulfate [Albuterol 2 puff INHALATION RT-Q4H PRN 09/10/22 02/25/24 Sulfate Hfa] Loperamide HCl [Loperamide] 4 mg PO QID@08,12,16,20 11/10/22 02/25/24 Ferrous Sulfate [Iron (65 MG 325 mg PO DAILY@0900 12/12/23 02/25/24 Elemental)] Heparin Sodium,Porcine/Pf [Heparin 500 unit IV DAILY PRN 12/12/23 02/25/24 500 Unit/5 ml (100/ml) Flush] Metoprolol Tartrate [Lopressor] 12.5 mg PO BID@0900,2100 12/12/23 02/25/24 Vitamin A 2,400 mcg PO DAILY@00 12/12/23 02/25/24 traZODone HCL [Desyrel] 50 mg PO HS PRN 12/12/23 02/25/24 Cholecalciferol (Vitamin D3) 1,250 mcg PO MOTH 12/13/23 02/25/24 [Vitamin D3 (1250 Mcg = 50,000 Iu)] 0.9 % Sodium Chloride [Sodium 10 ml IV DAILY PRN 02/25/24 02/25/24 Chloride Flush] 0.9 % Sodium Chloride [Sodium 10 ml IV DAILY@1000 02/25/24 02/25/24 Chloride Flush] Heparin Sodium,Porcine/Pf [Heparin 500 unit IV DAILY@1000 02/25/24 02/25/24 500 Unit/5 ml (100/ml) Flush] Omeprazole [PriLOSEC] 40 mg PO DAILY@0900 02/25/24 02/25/24 Qjxyn-Hah-Lodg 280-160-250 mg 1 packet PO TID 02/25/24 02/25/24 [Neutra-Phos Packet] Previous Rx's Medication Instructions Recorded Furosemide [Lasix] 40 mg PO BID@0900,1600 #30 tab 12/25/23 Ipratropium-Albuterol Nebulize 3 ml INHALATION RT-QID #100 each 01/14/24 [Duoneb 0.5 mg-3 mg/3 ml Soln] Sodium Chloride 0.65% Nasal [Deep 2 spray NASAL QID PRN ml 01/14/24 Sea (Saline)] Allergies Allergy/AdvReac Type Severity Reaction Status Date / Time No Known Allergies Allergy Verified 02/25/24 18:37 Review of Systems ROS Statement: Those systems with pertinent positive or pertinent negative responses have been documented in the HPI. ROS Other: All systems not noted in ROS Statement are negative. Past Medical History Past Medical History: CVA/TIA, Deep Vein Thrombosis (DVT) Additional Past Medical History / Comment(s): Progressing left upper thigh pain and swelling and left leg weakness. 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 Crohns. Ostomy Bag placed in 09/2021. History of Any Multi-Drug Resistant Organisms: MRSA Date of last positivie culture/infection: 12/14/23 MDRO Source:: MRSA- nasal Past Surgical History: Cholecystectomy, Orthopedic Surgery Additional Past Surgical History / Comment(s): Arm surgery, right leg below knee amputation, ostomy (2021) Past Anesthesia/Blood Transfusion Reactions: No Reported Reaction Past Psychological History: No Psychological Hx Reported Smoking Status: Former smoker Past Alcohol Use History: None Reported Past Drug Use History: None Reported - Past Family History Father Additional Family Medical History / Comment(s): DAD IN HIS TWENTIES - CAUSE UNKNOWN. Mother Family Medical History: Diabetes Mellitus Brother(s) Family Medical History: Cancer Additional Family Medical History / Comment(s): Kidney cancer as a baby. General Exam Limitations: altered mental status, physical limitation General appearance: alert, in no apparent distress, anxious, lethargic, in distress Head exam: Present: atraumatic, normocephalic, normal inspection Eye exam: Present: normal appearance, PERRL, EOMI. Absent: scleral icterus, conjunctival injection, periorbital swelling ENT exam: Present: normal exam, mucous membranes moist Neck exam: Present: normal inspection. Absent: tenderness, meningismus, lymphadenopathy Respiratory exam: Present: normal lung sounds bilaterally, respiratory distress, wheezes, rhonchi, decreased breath sounds, prolonged expiratory. Absent: rales, stridor Cardiovascular Exam: Present: regular rate, normal rhythm, normal heart sounds. Absent: systolic murmur, diastolic murmur, rubs, gallop, clicks GI/Abdominal exam: Present: soft, normal bowel sounds. Absent: distended, tenderness, guarding, rebound, rigid Extremities exam: Present: normal inspection, full ROM, normal capillary refill. Absent: tenderness, pedal edema, joint swelling, calf tenderness Back exam: Present: normal inspection Neurological exam: Present: alert, oriented X3, CN II-XII intact Psychiatric exam: Present: normal affect, normal mood Skin exam: Present: warm, dry, intact, normal color. Absent: rash Course Vital Signs 02/25/24 02/25/24 02/25/24 14:57 15:16 15:50 Temperature 98.1 F Pulse Rate 97 Respiratory 22 22 Rate Blood Pressure 163/77 O2 Sat by Pulse 87 L 91 L Oximetry Fraction of Inspired Oxygen (FIO2) 02/25/24 02/25/24 02/25/24 16:01 16:09 16:47 Temperature Pulse Rate 97 101 H Respiratory Rate Blood Pressure O2 Sat by Pulse 99 Oximetry Fraction of Inspired Oxygen (FIO2) 02/25/24 02/25/24 02/25/24 18:42 19:00 20:00 Temperature Pulse Rate 98 100 100 Respiratory 20 18 18 Rate Blood Pressure 144/70 120/62 147/69 O2 Sat by Pulse 91 L Oximetry Fraction of Inspired Oxygen (FIO2) 02/25/24 02/25/24 02/26/24 21:00 22:00 00:00 Temperature Pulse Rate 97 100 86 Respiratory 22 20 20 Rate Blood Pressure 156/74 148/68 156/65 O2 Sat by Pulse 92 L 89 L Oximetry Fraction of Inspired Oxygen (FIO2) 02/26/24 02/26/24 02/26/24 01:00 02:02 02:22 Temperature Pulse Rate 100 Respiratory 18 18 Rate Blood Pressure 160/130 O2 Sat by Pulse 88 L Oximetry Fraction of 100 Inspired Oxygen (FIO2) 02/26/24 02/26/24 02/26/24 02:35 03:10 03:30 Temperature Pulse Rate 72 61 78 Respiratory 18 16 20 Rate Blood Pressure 117/47 82/59 93/38 O2 Sat by Pulse 87 L 89 L 95 Oximetry Fraction of Inspired Oxygen (FIO2) 02/26/24 02/26/24 02/26/24 03:35 03:40 03:45 Temperature Pulse Rate 85 82 Respiratory 20 20 Rate Blood Pressure 66/34 54/29 O2 Sat by Pulse 94 L 94 L Oximetry Fraction of 100 Inspired Oxygen (FIO2) 02/26/24 02/26/24 02/26/24 03:55 04:00 04:10 Temperature Pulse Rate 81 76 70 Respiratory 20 20 22 Rate Blood Pressure 52/30 57/28 60/33 O2 Sat by Pulse 94 L 97 97 Oximetry Fraction of Inspired Oxygen (FIO2) 02/26/24 02/26/24 02/26/24 04:15 04:20 04:25 Temperature Pulse Rate 88 77 59 L Respiratory 22 22 22 Rate Blood Pressure 58/37 64/36 115/96 O2 Sat by Pulse 97 97 97 Oximetry Fraction of Inspired Oxygen (FIO2) 02/26/24 02/26/24 02/26/24 04:30 05:00 05:05 Temperature Pulse Rate 81 60 65 Respiratory 22 22 22 Rate Blood Pressure 97/46 O2 Sat by Pulse 100 98 98 Oximetry Fraction of Inspired Oxygen (FIO2) 02/26/24 02/26/24 02/26/24 05:10 05:15 05:20 Temperature Pulse Rate 74 61 59 L Respiratory 22 24 26 H Rate Blood Pressure O2 Sat by Pulse 97 98 97 Oximetry Fraction of Inspired Oxygen (FIO2) 02/26/24 02/26/24 02/26/24 05:25 05:30 05:35 Temperature Pulse Rate 58 L 60 60 Respiratory 26 H 26 H 26 H Rate Blood Pressure O2 Sat by Pulse 97 96 96 Oximetry Fraction of Inspired Oxygen (FIO2) 02/26/24 02/26/24 02/26/24 05:45 06:00 06:15 Temperature Pulse Rate 59 L 57 L 50 L Respiratory 26 H 9 L 11 L Rate Blood Pressure 81/44 69/47 O2 Sat by Pulse 98 99 99 Oximetry Fraction of Inspired Oxygen (FIO2) - Reevaluation(s) Reevaluation #1: 02/25/24 17:22 Records reviewed Reevaluation #2: 02/25/24 17:22 Symptoms relatively unchanged Reevaluation #3: 02/25/24 17:23 Family informed of results Reevaluation #4: Was pt. sent in by a medical professional or institution (, NATHANIEL, [employer], urgent care, hospital, or intermediate...) When possible be specific @ -no Did you speak to anyone other than the patient for history (EMS, parent, family, police, friend...)? What history was obtained from this source @ -no Did you review nursing and triage notes (agree or disagree)? Why? @ -agree Are old charts reviewed (outside hosp., previous admission, EMS record, old EKG, old radiological studies, urgent care reports/EKG's, intermediate records)? Report findings @ -yes Differential Diagnosis (chest pain, altered mental status, abdominal pain women, abdominal pain men, vaginal bleeding, weakness, fever, dyspnea, syncope, headache, dizziness, GI bleed, back pain, seizure, CVA, palpatations, mental health, musculoskeletal)? @ -prior EKG interpreted by me (3pts min.). @ -yes X-rays interpreted by me (1pt min.). @ -yes positive for pulmonary edema e CT interpreted by me (1pt min.). @ -no U/S interpreted by me (1pt. min.). @ -no What testing was considered but not performed or refused? (CT, X-rays, U/S, labs)? Why? @ -none What meds were considered but not given or refused? Why? @ -none Did you discuss the management of the patient with other professionals (p rofessionals i.e. NATHANIEL Elias, [employer], lab, RT, psych nurse, social media editor, film librarian, teacher, navy senior officer, case aide)? Give summary @ -no Was smoking cessation discussed for >3mins.? @ -no Was critical care preformed (if so, how long)? @ -yes31 Were there social determinants of health that impacted care today? How? (Homelessness, low income, unemployed, alcoholism, drug addiction, transportation, low edu. Level, literacy, decrease access to med. care, assisted, rehab)? @ -none Was there de-escalation of care discussed even if they declined (Discuss DNR or withdrawal of care, Hospice)? DNR status @ -no What co-morbidities impacted this encounter? (DM, HTN, Smoking, COPD, CAD, Cancer, CVA, ARF, Chemo, Hep., AIDS, mental health diagnosis, sleep apnea, morbid obesity)? @ -none Was patient admitted / discharged? Hospital course, mention meds given and route, prescriptions, significant lab abnormalities, going to OR and other pertinent info. @ - 48 male to be admitted to the hospital. Patient will be admitted to this hospital for severe hypoxia and respiratory failure Admitted Undiagnosed new problem with uncertain prognosis? @ -no Drug Therapy requiring intensive monitoring for toxicity (Heparin, Nitro, Insulin, Cardizem)? @ -no Were any procedures done? @ -no Diagnosis/symptom? @ -Respiratory failure and hypoxia pulmonary edema anasarca Acute, or Chronic, or Acute on Chronic? @ -Acute Uncomplicated (without systemic symptoms) or Complicated (systemic symptoms)? @ -Complicated Side effects of treatment? @ -no Exacerbation, Progression, or Severe Exacerbation? @ -exacerbation Poses a threat to life or bodily function? How? (Chest pain, USA, HI, pneumonia, PE, COPD, DKA, ARF, appy, cholecystitis, CVA, Diverticulitis, Homicidal, Suicidal, threat to staff... and all critical care pts) @ -yes respiratory failure and hypoxia 03/02/24 15:56 Reevaluation #5: Differential Dyspnea: Coronary syndrome, arrhythmia, tamponade, asthma, COPD, pulmonary embolism, pneumonia, pneumothorax, pulmonary effusion, anaphylaxis, diabetic ketoacidosis, flailed chest, pulmonary contusion, diaphragmatic rupture, anemia, neuromuscular, this is not meant to be an all-inclusive list. - Consultations Consultation #1: Spoke with [facility] who agrees to admit this patient Medical Decision Making - Medical Decision Making 48 male to be admitted to the hospital. Patient will be admitted to this hospital for severe hypoxia and respiratory failure - Lab Data Result diagrams: 03/02/24 04:05 03/02/24 04:05 Lab Results 02/25/24 02/25/24 02/25/24 Range/Units 15:53 15:53 15:53 WBC 11.2 H (3.8-10.6) k/uL RBC 4.14 L (4.30-5.90) m/uL Hgb 10.5 L (13.0-17.5) gm/dL Hct 37.3 L (39.0-53.0) % MCV 90.1 (80.0-100.0) fL MCH 25.4 (25.0-35.0) pg MCHC 28.1 L (31.0-37.0) g/dL RDW 17.5 H (11.5-15.5) % Plt Count 315 (150-450) k/uL MPV 9.0 Neutrophils % 55 % Lymphocytes % 36 % Monocytes % 4 % Eosinophils % 2 % Basophils % 1 % Neutrophils # 6.1 (1.3-7.7) k/uL Lymphocytes # 4.0 (1.0-4.8) k/uL Monocytes # 0.5 (0-1.0) k/uL Eosinophils # 0.2 (0-0.7) k/uL Basophils # 0.1 (0-0.2) k/uL Hypochromasia Marked Poikilocytosis Slight Anisocytosis Slight PT 11.3 (10.0-12.5) sec INR 1.0 (<1.2) APTT 23.2 (22.0-30.0) sec Sodium 138 (137-145) mmol/L Potassium 4.8 (3.5-5.1) mmol/L Chloride 97 L (98-107) mmol/L Carbon Dioxide 39 H (22-30) mmol/L Anion Gap 2 mmol/L BUN 23 H (9-20) mg/dL Creatinine 0.45 L (0.66-1.25) mg/dL Est GFR (CKD-EPI)AfAm >90 (>60 ml/min/1.73 sqM) Est GFR (CKD-EPI)NonAf >90 (>60 ml/min/1.73 sqM) Glucose 103 H (74-99) mg/dL Plasma Lactic Acid Edmund (0.7-2.0) mmol/L Calcium 8.5 (8.4-10.2) mg/dL Magnesium 2.4 H (1.6-2.3) mg/dL Total Bilirubin 0.6 (0.2-1.3) mg/dL AST 20 (17-59) U/L ALT 27 (4-49) U/L Alkaline Phosphatase 120 (38-126) U/L Troponin I (0.000-0.034) ng/mL NT-Pro-B Natriuret Pep 22 pg/mL Total Protein 7.8 (6.3-8.2) g/dL Albumin 3.4 L (3.5-5.0) g/dL 02/25/24 02/25/24 Range/Units 15:53 15:53 WBC (3.8-10.6) k/uL RBC (4.30-5.90) m/uL Hgb (13.0-17.5) gm/dL Hct (39.0-53.0) % MCV (80.0-100.0) fL MCH (25.0-35.0) pg MCHC (31.0-37.0) g/dL RDW (11.5-15.5) % Plt Count (150-450) k/uL MPV Neutrophils % % Lymphocytes % % Monocytes % % Eosinophils % % Basophils % % Neutrophils # (1.3-7.7) k/uL Lymphocytes # (1.0-4.8) k/uL Monocytes # (0-1.0) k/uL Eosinophils # (0-0.7) k/uL Basophils # (0-0.2) k/uL Hypochromasia Poikilocytosis Anisocytosis PT (10.0-12.5) sec INR (<1.2) APTT (22.0-30.0) sec Sodium (137-145) mmol/L Potassium (3.5-5.1) mmol/L Chloride (98-107) mmol/L Carbon Dioxide (22-30) mmol/L Anion Gap mmol/L BUN (9-20) mg/dL Creatinine (0.66-1.25) mg/dL Est GFR (CKD-EPI)AfAm (>60 ml/min/1.73 sqM) Est GFR (CKD-EPI)NonAf (>60 ml/min/1.73 sqM) Glucose (74-99) mg/dL Plasma Lactic Acid Edmund 1.0 (0.7-2.0) mmol/L Calcium (8.4-10.2) mg/dL Magnesium (1.6-2.3) mg/dL Total Bilirubin (0.2-1.3) mg/dL AST (17-59) U/L ALT (4-49) U/L Alkaline Phosphatase (38-126) U/L Troponin I <0.012 (0.000-0.034) ng/mL NT-Pro-B Natriuret Pep pg/mL Total Protein (6.3-8.2) g/dL Albumin (3.5-5.0) g/dL - EKG Data -: EKG Interpreted by Me (EKG is sinus 90 MI 189 QRS 109 QTc 389) - Radiology Data Radiology results: report reviewed (Chest x-ray is positive for pulmonary edema), image reviewed Critical Care Time Critical Care Time: Yes Total Critical Care Time: 31 Disposition Clinical Impression: Crohn's disease, Weakness, Dehydration, Dyspnea, Failure to thrive, Hypoxia Disposition: ADMITTED IP TO THIS HOSP Condition: Fair Is patient prescribed a controlled substance at d/c from ED?: No Time of Disposition: 17:00
[2024-02-25] MEDS: IPRATROPIUM-ALBUTEROL 3 ML NEB INHALATION STA (15:53)
[2024-02-25 16:32] LABS: Anisocytosis Slight; Basophils # (A) 0.1 k/uL (0-0.2); Basophils % (A) 1 %; Eosinophils # (A) 0.2 k/uL (0-0.7); Eosinophils % (A) 2 %; HCT 37.3 % (39.0-53.0); HGB 10.5 gm/dL (13.0-17.5); Hypochromasia Marked; Lymphocytes % (A) 36 %; MCH 25.4 pg (25.0-35.0); MCHC 28.1 g/dL (31.0-37.0); MCV 90.1 fL (80.0-100.0); Monocytes # (A) 0.5 k/uL (0-1.0); Monocytes % (A) 4 %; Neutrophils # (A) 6.1 k/uL (1.3-7.7); Neutrophils % (A) 55 %; Platelet Count 315 k/uL (150-450); Poikilocytosis Slight; RBC 4.14 m/uL (4.30-5.90); RDW 17.5 % (11.5-15.5); WBC 11.2 k/uL (3.8-10.6)
[2024-02-25 16:45] LABS: Partial Thromboplastin Time 23.2 sec (22.0-30.0); Prothrombin Time 11.3 sec (10.0-12.5)
[2024-02-25 16:48] LABS: ALT 27 U/L (4-49); AST 20 U/L (17-59); African American GFR (CKD) >90 (>60 ml/min/1.73 sqM); Albumin 3.4 g/dL (3.5-5.0); Alkaline Phosphatase 120 U/L (38-126); Anion Gap 2 mmol/L; Blood Urea Nitrogen 23 mg/dL (9-20); Calcium 8.5 mg/dL (8.4-10.2); Carbon Dioxide 39 mmol/L (22-30); Chloride 97 mmol/L (98-107); Glucose 103 mg/dL (74-99); Magnesium 2.4 mg/dL (1.6-2.3); Non-African American GFR(CKD) >90 (>60 ml/min/1.73 sqM); Potassium 4.8 mmol/L (3.5-5.1); Sodium 138 mmol/L (137-145); Total Bilirubin 0.6 mg/dL (0.2-1.3); Total Protein 7.8 g/dL (6.3-8.2)
[2024-02-25 16:56] LABS: NT-Pro-B-Type Natriuretic Pept 22 pg/mL
--- NOTE | 2024-02-25 18:21 | XR ---
EXAMINATION TYPE: XR chest 2V DATE OF EXAM: 02/25/2024 6:08 PM COMPARISON: 02/23/2024 CLINICAL INDICATION: Male, 48 years old with history of difficulty breathing, TECHNIQUE: XR chest 2V view(s) obtained. FINDINGS: The heart size is normal. The pulmonary vasculature is normal. Posterior infiltrate may be present on the lateral projection. Small effusion may be present. Finding s are likely at the right lung base. Continued follow-up is recommended. Catheter is present on the left with the tip in the superior vena cava right atrial junction region. IMPRESSION: 1. Suspected posterior right pleural effusion and/or infiltrate. Follow-up exams recommended [facility], , 02/25/2024 6:18 PM
[2024-02-25] MEDS: MORPHINE SULFATE 4 MG/ML SYRINGE IV PRN (18:47)
[2024-02-25] MEDS: SODIUM CHLORIDE 0.9% 1,000 ML IV SCH (18:47)
[2024-02-25] MEDS: SODIUM CHLORIDE 0.9% 1,000 ML IV STA (18:48)
[2024-02-26] MEDS: NALOXONE 0.4 MG/ML 1 ML VIAL IV PRN (02:02)
[2024-02-26] MEDS ORDERED: VANCOMYCIN IV PER PHARMACY 1 EACH MISC MISCELLANE PRN (02:13)
[2024-02-26] MEDS ORDERED: VANCOMYCIN 1,500 MG in SODIUM CHLORIDE 0.9% 500 ML 500 ML IVPB ONE (02:30)
--- NOTE | 2024-02-26 02:33 | XR ---
EXAMINATION TYPE: XR chest 1V portable DATE OF EXAM: 02/26/2024 CLINICAL HISTORY: Difficulty breathing progress study. TECHNIQUE: Single AP portable semiupright view of the chest is obtained. COMPARISON: Chest x-ray from one day earlier FINDINGS: Stable left-sided central venous catheter. Persistent low lung volumes. Persistent cardiomegaly. More prominent bibasilar opacities. Osseous str uctures are intact. IMPRESSION: Persistent low lung volumes and cardiomegaly with new small bilateral pleural effusions a nd new or more prominent bibasilar acute infiltrates and/or atelectasis. [facility], , 02/26/2024 2:31 AM
[2024-02-26] MEDS: NOREPINEPHRINE 32 MG in SODIUM CHLORIDE 0.9% 218 ML IV ONE (03:30)
--- NOTE | 2024-02-26 03:50 | XR ---
EXAMINATION TYPE: XR chest 1V portable DATE OF EXAM: 02/26/2024 CLINICAL HISTORY: Difficulty breathing had to be intubated. TECHNIQUE: Single AP portable supine view of the chest is obtained. COMPARISON: Chest x-ray from earlier today FINDINGS: Stable left-sided central venous catheter. There is new Endotracheal tube terminating at inferior clavicular margin approximately 3 cm above the avery. Ther e is new orogastric tube projecting below diaphragm. Persistent but improved right basilar opacity. Persistent cardiomegaly. Persistent small bilateral pl eural effusions. Osseous structures are intact. IMPRESSION: 1. New endotracheal tube and orogastric tubes are satisfactory in position. 2. Persistent low lung volumes and cardiomegaly with small bilateral pleural effusions. Persistent ri ght-sided acute infiltrate and/or edema with some improved aeration noted from most recent study. [facility], , 02/26/2024 3:47 AM
[2024-02-26 04:57] LABS: ABG Base Excess -0.6 mmol/L; ABG HCO3 31 mmol/L (21-25); ABG Oxygen Saturation 96.4 % (94-97); ABG PO2 89 mmHg (83-108); ABG TCO2 34 mmol/L (19-24); Allen Test Performed? Yes
[2024-02-26 05:00] LABS: ABG PH 7.11 (7.35-7.45)
[2024-02-26 05:01] LABS: ABG PCO2 98 mmHg (35-45)
--- NOTE | 2024-02-26 05:08 | P.CNPUL ---
History of Present Illness Consult date: 02/26/24 Requesting physician: Phuc Phillips Reason for consult: dyspnea Chief complaint: shortness of breath History of present illness: Patient is a 48-year-old male with complex past medical history including CVA, previous DVTs, right BKA, cardiac arrest in 2021, Crohn's disease, enterocutaneo us fistulas, previous bowel resection, ventilator dependent respiratory failure, previous tracheostomy and reversal. Recently was admitted 12/13/2023 through 12/25/2023 for pneumonia and respiratory failure due to mucous plugging. He was intubated and placed on mechanical ventilator for approximately 6 days. He did have a bronchoscopy with BAL, microbiology positive for haemophilus influenza. Eventually, discharged home, and returned 01/02/24 for GIB from his ostomy. Was reintubated and did spend some time on the ventilator for reccurent pneumonia and mucous plugging. During this time, had multiple bronchoscopies with BAL, once on 12/31/2023 and again on 01/03/2024, isolated organisms including MRSA and Pseudomonas. Patient was eventually discharged back home on 01/16/2024. More recently, patient had an ER visit for increased work of breathing on February 22, and the patient was sent home. Returned for similar symptoms yesterday afternoon. Chest x-ray done on admission showing cardiomegaly with pulmonary vascular congestion and questionable right lower lobe infiltrate or effusion. CBC: WBC count 11.2, hemoglobin 10.5, hematocrit 37.3, platelets 315. CMP: Sodium 138, potassium 4.8, chloride 97, serum bicarb 39, BUN 23, creatinine 0.45, glucose 103. Lactic 1. LFTs unremarkable. Troponin less than 0.012. I am evaluating this patient emergency department, he is currently unresponsive, to even painful stimuli. He is on a 15 L nonrebreather. SpO2 88%. Diminished breath sounds on the right Will place this patient on BiPAP with initial settings 16/5 FiO2 to be titrated accordingly. Will get a stat ABG. We will repeat chest x-ray. I did talk to the patient's son, Alan, he is adamant that the patient remain a full code, would want the patient intubated if necessary. Review of Systems ROS unobtainable: due to mental status Past Medical History Past Medical History: CVA/TIA, Deep Vein Thrombosis (DVT) Additional Past Medical History / Comment(s): Progressing left upper thigh pain and swelling and left leg weakness. 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 Crohns. Ostomy Bag placed in 09/2021. History of Any Multi-Drug Resistant Organisms: MRSA Date of last positivie culture/infection: 12/14/23 MDRO Source:: MRSA- nasal Past Surgical History: Cholecystectomy, Orthopedic Surgery Additional Past Surgical History / Comment(s): Arm surgery, right leg below knee amputation, ostomy (2021) Past Anesthesia/Blood Transfusion Reactions: No Reported Reaction Past Psychological History: No Psychological Hx Reported Smoking Status: Former smoker Past Alcohol Use History: None Reported Past Drug Use History: None Reported - Past Family History Father Additional Family Medical History / Comment(s): DAD IN HIS TWENTIES - CAUSE UNKNOWN. Mother Family Medical History: Diabetes Mellitus Brother(s) Family Medical History: Cancer Additional Family Medical History / Comment(s): Kidney cancer as a baby. Medications and Allergies Home Medications Medication Instructions Recorded Confirmed Type Enoxaparin [Lovenox] 80 mg SQ BID@0900,209907/07/22 02/25/24 History Pantoprazole [Protonix] 40 mg PO DAILY@72907/07/22 02/25/24 History Albuterol Sulfate [Albuterol 2 puff INHALATION RT-Q4H PRN 09/10/22 02/25/24 History Sulfate Hfa] Loperamide HCl [Loperamide] 4 mg PO QID@08,12,16,20 11/10/22 02/25/24 History Ferrous Sulfate [Iron (65 MG 325 mg PO DAILY@89912/12/23 02/25/24 History Elemental)] Heparin Sodium,Porcine/Pf [Heparin 500 unit IV DAILY PRN 12/12/23 02/25/24 History 500 Unit/5 ml (100/ml) Flush] Metoprolol Tartrate [Lopressor] 12.5 mg PO BID@0900,209912/12/23 02/25/24 History Vitamin A 2,400 mcg PO DAILY@0912/12/23 02/25/24 History traZODone HCL [Desyrel] 50 mg PO HS PRN 12/12/23 02/25/24 History Cholecalciferol (Vitamin D3) 1,250 mcg PO MOTH 12/13/23 02/25/24 History [Vitamin D3 (1250 Mcg = 50,000 Iu)] Furosemide [Lasix] 40 mg PO BID@0900,1600 #30 tab 12/25/23 02/25/24 Rx Ipratropium-Albuterol Nebulize 3 ml INHALATION RT-QID #100 each 01/14/24 4 Rx [Duoneb 0.5 mg-3 mg/3 ml Soln] Sodium Chloride 0.65% Nasal [Deep 2 spray NASAL QID PRN ml 01/14/24 02/25/24 Rx Sea (Saline)] 0.9 % Sodium Chloride [Sodium 10 ml IV DAILY PRN 02/25/24 02/25/24 History Chloride Flush] 0.9 % Sodium Chloride [Sodium 10 ml IV DAILY@1000 02/25/24 02/25/24 History Chloride Flush] Heparin Sodium,Porcine/Pf [Heparin 500 unit IV DAILY@1000 02/25/24 02/25/24 History 500 Unit/5 ml (100/ml) Flush] Omeprazole [PriLOSEC] 40 mg PO DAILY@0900 02/25/24 02/25/24 History Vaejy-Txc-Bjko 280-160-250 mg 1 packet PO TID 02/25/24 02/25/24 History [Neutra-Phos Packet] Allergies Allergy/AdvReac Type Severity Reaction Status Date / Time No Known Allergies Allergy Verified 02/25/24 18:37 Physical Exam Vitals: Vital Signs Temp Pulse Resp BP Pulse Ox 02/26/24 01:00 100 18 160/130 94 L 02/26/24 00:00 86 20 156/65 89 L 02/25/24 22:00 100 20 148/68 92 L 02/25/24 21:00 97 22 156/74 02/25/24 20:00 100 18 147/69 02/25/24 19:00 100 18 120/62 02/25/24 18:42 98 20 144/70 91 L 02/25/24 16:47 99 02/25/24 16:09 101 H 02/25/24 16:01 97 02/25/24 15:50 22 02/25/24 15:16 91 L 02/25/24 14:57 98.1 F 97 22 163/77 87 L Intake and Output 02/25/24 02/25/24 02/26/24 14:59 22:59 06:59 Other: Weight 95.254 kg GENERAL EXAM: Unresponsive, 48-year-old male, shallow breathing, on a 15 L nonrebreather HEAD: Normocephalic and atraumatic EYES: Normal reaction of pupils, equal size. NOSE: Clear with pink turbinates. THROAT: No erythema or exudates. NECK: No masses, no JVD. CHEST: No chest wall deformity. Left chest PICC line LUNGS: Equal air entry with diminished right lung sounds. On 15 L nonrebreather. SpO2 80%. Shallow breathing. Tachypneic.. CVS: S1 and S2 normal with no audible murmur, regular rhythm. No extra heart sounds ABDOMEN: No hepatosplenomegaly, active bowel sounds, no guarding or rigidity. Fu nctional ileostomy without green output. SPINE: No scoliosis or deformity SKIN: No rashes CENTRAL NERVOUS SYSTEM: No focal deficits, tone is normal in all 4 extremities. EXTREMITIES: There is no peripheral edema, clubbing, or cyanosis. Peripheral pulses weak and thready. Previous right BKA. Results - Laboratory Findings CBC and BMP: 02/25/24 15:53 02/25/24 15:53 PT/INR, D-dimer PT 11.3 sec (10.0-12.5) 02/25/24 15:53 INR 1.0 (<1.2) 02/25/24 15:53 Abnormal lab findings: Abnormal Labs 02/25/24 02/25/24 15:53 15:53 WBC 11.2 H RBC 4.14 L Hgb 10.5 L Hct 37.3 L MCHC 28.1 L RDW 17.5 H Chloride 97 L Carbon Dioxide 39 H BUN 23 H Creatinine 0.45 L Glucose 103 H Magnesium 2.4 H Albumin 3.4 L - Diagnostic Findings Chest x-ray: image reviewed Assessment and Plan Assessment: Acute hypoxic and hypercapnic respiratory failure, patient will be trialed on BiPAP, chest x-ray showing interval worseing of right lung opacification, suspect right lower lobe pneumonia, likely recurrent mucous plugging with absorptive atelectasis. 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 Currently receiving TPN for nutritional support. 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 cardiac asystole/arrest in 2021 Plan: Patient was found unresponsive on 15 L nonrebreather in emergency department. Patient was placed on BiPAP with initial settings 16/5 and FiO2 to be titrated accordingly. This is a trial on BiPAP, we are going to obtain a stat ABG. Currently, achieving tidal volumes ranging from 3-400, rate is around 14 breaths/min. If no improvement, patient will need to be intubated. He is going to be transferred to the intensive care unit once bed available Start patient on empiric antibiotics in the form of vancomycin and Zosyn Obtain pancultures including blood cultures, urine culture, and sputum cultures Continue total parenteral nutrition Continue therapeutic dose Lovenox GI prophylaxis: Protonix I did call and update patient's son, Alan, he would want the patient to be a full code. I did explain that the patient is high risk for intubation. He will be transferred to the intensive care unit, once bed available. I have personally seen and examined the patient, performed the documentation and the assessment and plan as written. Number of minutes spent on the visit:20 Time with Patient: Greater than 30
--- NOTE | 2024-02-26 05:11 | P.PCN ---
Date of Procedure: 02/26/24 Preoperative Diagnosis: Acute hypoxemic and hypercapnic respiratory failure requiring mechanical ventilation Postoperative Diagnosis: Acute hypoxemic and hypercapnic respiratory failure requiring mechanical ventilation Procedure(s) Performed: Insertion of a left femoral arterial line Indications for Procedure: Continuous blood pressure monitoring and frequent blood draws Description of Procedure: Informed consent was obtained, and a procedural timeout was performed . The patient was placed in supine position. The left femoral region was prepared in a sterile fashion, and a sterile drape was applied. The left femoral artery was palpated, easily cannulated, and a guidewire was placed. Dilating catheter was inserted and removed. A Cook catheter was inserted over the guidewire, and the guidewire was removed. There was good arterial blood flow, good arterial waveform, and no complications. The line was secured with using a 3-0 silk suture.
[2024-02-26 05:33] LABS: Anisocytosis Slight; HCT 36.9 % (39.0-53.0); HGB 10.7 gm/dL (13.0-17.5); Hypochromasia Marked; MCH 26.9 pg (25.0-35.0); MCHC 28.9 g/dL (31.0-37.0); MCV 93.1 fL (80.0-100.0); Mean Platelet Volume 8.2; Platelet Count 368 k/uL (150-450); Poikilocytosis Slight; RBC 3.96 m/uL (4.30-5.90); RDW 16.7 % (11.5-15.5); WBC 18.9 k/uL (3.8-10.6)
[2024-02-26] MEDS: SODIUM CHLORIDE 0.9% 2,000 ML IV ONE (05:41)
[2024-02-26] MEDS: NALOXONE 0.4 MG/ML 1 ML VIAL IVP STA (05:42)
[2024-02-26 05:57] LABS: ALT 30 U/L (4-49); AST 28 U/L (17-59); African American GFR (CKD) >90 (>60 ml/min/1.73 sqM); Albumin 3.2 g/dL (3.5-5.0); Alkaline Phosphatase 110 U/L (38-126); Anion Gap 6 mmol/L; Blood Urea Nitrogen 30 mg/dL (9-20); Calcium 8.2 mg/dL (8.4-10.2); Carbon Dioxide 30 mmol/L (22-30); Chloride 103 mmol/L (98-107); Glucose 128 mg/dL (74-99); Magnesium 2.7 mg/dL (1.6-2.3); Non-African American GFR(CKD) >90 (>60 ml/min/1.73 sqM); Phosphorus 8.1 mg/dL (2.5-4.5); Sodium 139 mmol/L (137-145); Total Bilirubin 0.5 mg/dL (0.2-1.3); Total Protein 7.3 g/dL (6.3-8.2)
[2024-02-26] MEDS: SODIUM CHLORIDE 0.9% 1,000 ML IV ONE (06:12)
[2024-02-26] MEDS: PIPERACILLIN-TAZOBACTAM 3.375 GM in SODIUM CHLORIDE 0.9% 100 ML IVPB SCH (06:19)
[2024-02-26 06:43] LABS: Glucose,Whole Blood 130 mg/dL (70-110)
[2024-02-26] MEDS: VASOPRESSIN 60 UNIT in SODIUM CHLORIDE 0.9% 150 ML IV SCH ×2 (06:44→07:10)
[2024-02-26] MEDS: PIPERACILLIN-TAZOBACTAM 3.375 GM in SODIUM CHLORIDE 0.9% 100 ML IVPB STA (07:00)
--- NOTE | 2024-02-26 07:21 | XR ---
EXAMINATION TYPE: XR chest 1V DATE OF EXAM: 02/26/2024 7:15 AM COMPARISON: 02/26/2024 CLINICAL INDICATION: Male, 48 years old with history of possible aspiration, TECHNIQUE: XR chest 1V view(s) obtained. FINDINGS: The heart size is normal. The pulmonary vasculature is normal. There is improving infiltrate through the right lung. Inspiration is somewhat limited. Endotracheal t ube tip is 5.2 cm above the avery. Nasogastric tube has been pulled back with the tip in the distal esophageal lesion. This should be advanced approximately 10 cm There is a left central venous catheter present with the tip in the proximal right atrium IMPRESSION: 1. Improving right perihilar infiltrate. 2. Endotracheal tube with tip above the avery. 3. Nasogastric tube has been pulled back and should be advanced approximately 10 cm. [facility], , 02/26/2024 7:19 AM
[2024-02-26 07:30] LABS: Band Neutrophils % 5 %; Lymphocytes # (M) 0.57 k/uL (1.0-4.8); Metamyelocytes # (M) 0.19 k/uL (0); Metamyelocytes % 1 %; Monocytes # (M) 0.57 k/uL (0-1.0); Neutrophils % (M) 88 %; Nucleated Red Blood Cells 0 /100 WBC (0-0); Total Cells Counted 100
[2024-02-26 07:31] LABS: Anisocytosis (M) Present; Basophilic Stippling Present; Polychromasia Present
[2024-02-26] MEDS: IPRATROPIUM-ALBUTEROL 3 ML NEB INHALATION SCH (08:04)
[2024-02-26] MEDS ORDERED: DEXTROSE 50% SYRINGE 50 ML IVP PRN ×2 (08:17)
[2024-02-26 08:38] LABS: Appearance,Urine Clear (Clear); Bilirubin,Urine Negative (Negative); Blood,Urine Trace (Negative); Color,Urine Colorless; Glucose,Urine (UA) Negative (Negative); Ketones,Urine Negative (Negative); Leukocyte Esterase,Urine Negative (Negative); Mucus,Urine Rare /hpf; Nitrite,Urine Negative (Negative); Protein,Urine Trace (Negative); RBC,Urine <1 /hpf (0-5); Specific Gravity,Urine 1.017 (1.001-1.035); Squamous Epithelial Cell,Urine <1 /hpf (0-4); Urobilinogen,Urine <2.0 mg/dL (<2.0); WBC,Urine 2 /hpf (0-5)
[2024-02-26] MEDS: HYDROCORTISONE SUCCINATE 100 MG/2 ML VIAL IV STA (08:45)
[2024-02-26] MEDS: CHLORHEXIDINE GLUCONATE 15 ML CUP MUCOUS MEM SCH (08:45)
[2024-02-26] MEDS: PANTOPRAZOLE 40 MG/10 ML VIAL IVP SCH (08:46)
[2024-02-26] MEDS: VANCOMYCIN 1,500 MG in SODIUM CHLORIDE 0.9% 500 ML 500 ML IVPB ONE (08:46)
--- NOTE | 2024-02-26 10:09 | P.CRDCN ---
History of Present Illness Consult date: 02/26/24 Consult reason: shortness of breath History of present illness: The patient is a 48-year-old male who presented to the emergency department with worsening shortness of breath. He has a known history of hypoxic respiratory failure and recurrent pneumonia. He was placed on high flow nasal cannula and then became nonresponsive. He was subsequently intubated and transferred to the ICU. Cardiology has been consulted for shortness of breath and hypoxia. DIAGNOSTICS: Chest x-ray shows posterior right pleural effusion/infiltrate EKG shows sinus rhythm with incomplete right bundle branch block Lab data: WBC 18.9, hemoglobin 10.7, hct 36.9, platelet 368, sodium 139, potassium 4.8, BUN 30, creatinine 0.81, magnesium 2.7, AST 28, ALT 30, BNP 251, troponin less than 0.01 REVIEW OF SYSTEMS: Patient is sedated on ventilator. PHYSICAL EXAMINATION: This is a 48-year-old male. Ill-appearing. HEENT: Head is atraumatic, normocephalic. Pupils are equal, round. Sclerae anicteric. There is no jugular venous distention. No carotid bruit is heard. CHEST EXAMINATION: Lungs are diminished to auscultation. No chest wall tenderness is noted on palpation or with deep breathing. HEART EXAMINATION: Heart regular rate and rhythm. S1, S2 heard. No murmurs, gallops or rub. ABDOMEN: Soft, nontender. Bowel sounds are heard. No organomegaly noted. EXTREMITIES: No palpable peripheral pulses in left lower extremity. Right kwigt-[id number] amputation. NEUROLOGIC EXAMINATION: Patient is sedated on ventilator FINAL ASSESSMENT AND PLAN: Acute hypoxic respiratory failure Pneumonia Cardiogenic shock, secondary to sepsis/respiratory failure History of CVA/TIA History of right below the knee amputation History of cardiac arrest/asystole in 2021 History of SVT PLAN: Obtain echocardiogram and Doppler study Continue telemetry monitoring for arrhythmia Continue supportive treatment for pneumonia/respiratory failure Further recommendations to be based upon clinical course I am dictating on behalf of Dr Lawson Resendez's history/physical and assessmen t/plan. Past Medical History Past Medical History: CVA/TIA, Deep Vein Thrombosis (DVT) Additional Past Medical History / Comment(s): Progressing left upper thigh pain and swelling and left leg weakness. 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 Crohns. Ostomy Bag placed in 09/2021. History of Any Multi-Drug Resistant Organisms: MRSA Date of last positivie culture/infection: 12/14/23 MDRO Source:: MRSA- nasal Past Surgical History: Cholecystectomy, Orthopedic Surgery Additional Past Surgical History / Comment(s): Arm surgery, right leg below knee amputation, ostomy (2021) Past Anesthesia/Blood Transfusion Reactions: No Reported Reaction Past Psychological History: No Psychological Hx Reported Smoking Status: Former smoker Past Alcohol Use History: None Reported Past Drug Use History: None Reported - Past Family History Father Additional Family Medical History / Comment(s): DAD IN HIS TWENTIES - CAUSE UNKNOWN. Mother Family Medical History: Diabetes Mellitus Brother(s) Family Medical History: Cancer Additional Family Medical History / Comment(s): Kidney cancer as a baby. Medications and Allergies Home Medications Medication Instructions Recorded Confirmed Type Enoxaparin [Lovenox] 80 mg SQ BID@0900,209907/07/22 02/25/24 History Pantoprazole [Protonix] 40 mg PO DAILY@0730 07/07/22 02/25/24 History Albuterol Sulfate [Albuterol 2 puff INHALATION RT-Q4H PRN 09/10/22 02/25/24 History Sulfate Hfa] Loperamide HCl [Loperamide] 4 mg PO QID@08,12,16,20 11/10/22 02/25/24 History Ferrous Sulfate [Iron (65 MG 325 mg PO DAILY@89912/12/23 02/25/24 History Elemental)] Heparin Sodium,Porcine/Pf [Heparin 500 unit IV DAILY PRN 12/12/23 02/25/24 History 500 Unit/5 ml (100/ml) Flush] Metoprolol Tartrate [Lopressor] 12.5 mg PO BID@0900,2100 12/12/23 02/25/24 History Vitamin A 2,400 mcg PO DAILY@00 12/12/23 02/25/24 History traZODone HCL [Desyrel] 50 mg PO HS PRN 12/12/23 02/25/24 History Cholecalciferol (Vitamin D3) 1,250 mcg PO MOTH 12/13/23 02/25/24 History [Vitamin D3 (1250 Mcg = 50,000 Iu)] Furosemide [Lasix] 40 mg PO BID@0900,1600 #30 tab 12/25/23 02/25/24 Rx Ipratropium-Albuterol Nebulize 3 ml INHALATION RT-QID #100 each 01/14/24 02/25/24 Rx [Duoneb 0.5 mg-3 mg/3 ml Soln] Sodium Chloride 0.65% Nasal [Deep 2 spray NASAL QID PRN ml 01/14/24 02/25/24 Rx Sea (Saline)] 0.9 % Sodium Chloride [Sodium 10 ml IV DAILY PRN 02/25/24 02/25/24 History Chloride Flush] 0.9 % Sodium Chloride [Sodium 10 ml IV DAILY@1000 02/25/24 02/25/24 History Chloride Flush] Heparin Sodium,Porcine/Pf [Heparin 500 unit IV DAILY@1000 02/25/24 02/25/24 History 500 Unit/5 ml (100/ml) Flush] Omeprazole [PriLOSEC] 40 mg PO DAILY@0900 02/25/24 02/25/24 History Nvumq-Gos-Dqxb 280-160-250 mg 1 packet PO TID 02/25/24 02/25/24 History [Neutra-Phos Packet] Allergies Allergy/AdvReac Type Severity Reaction Status Date / Time No Known Allergies Allergy Verified 02/25/24 18:37 Physical Exam Vitals: Vital Signs Temp Pulse Resp BP Pulse Ox FiO2 02/26/24 09:30 74 26 H 100 02/26/24 09:15 69 26 H 100 02/26/24 09:00 77 26 H 61/34 100 02/26/24 08:45 75 26 H 89/56 100 02/26/24 08:30 74 26 H 111/74 100 02/26/24 08:23 74 02/26/24 08:15 73 26 H 126/63 100 02/26/24 08:04 72 02/26/24 08:00 98.6 F 69 26 H 140/72 100 100 02/26/24 07:58 100 02/26/24 07:45 66 26 H 125/59 100 02/26/24 07:30 68 26 H 121/111 100 02/26/24 07:16 100 02/26/24 07:15 68 26 H 79/66 98 02/26/24 07:00 99.3 F 74 26 H 101/60 95 100 02/26/24 06:52 75 22 109/89 96 02/26/24 06:30 64 26 H 74/63 100 02/26/24 06:15 50 L 11 L 99 02/26/24 06:00 57 L 9 L 69/47 99 02/26/24 05:45 59 L 26 H 81/44 98 02/26/24 05:35 60 26 H 96 02/26/24 05:30 60 26 H 96 02/26/24 05:25 58 L 26 H 97 02/26/24 05:20 59 L 26 H 97 02/26/24 05:15 61 24 98 02/26/24 05:10 74 22 97 02/26/24 05:05 65 22 98 02/26/24 05:00 60 22 98 02/26/24 04:30 81 22 97/46 100 02/26/24 04:25 59 L 22 115/96 97 02/26/24 04:20 77 22 64/36 97 02/26/24 04:15 88 22 58/37 97 02/26/24 04:10 70 22 60/33 97 02/26/24 04:00 76 20 57/28 97 02/26/24 03:55 81 20 52/30 94 L 02/26/24 03:45 82 20 54/29 94 L 02/26/24 03:40 85 20 66/34 94 L 02/26/24 03:35 100 02/26/24 03:30 78 20 93/38 95 02/26/24 03:11 100 02/26/24 03:10 61 16 82/59 89 L 02/26/24 02:35 72 18 117/47 87 L 02/26/24 02:22 100 02/26/24 02:02 18 02/26/24 01:00 100 18 160/130 88 L 02/26/24 00:00 86 20 156/65 89 L 02/25/24 22:00 100 20 148/68 92 L 02/25/24 21:00 97 22 156/74 02/25/24 20:00 100 18 147/69 02/25/24 19:00 100 18 120/62 02/25/24 18:42 98 20 144/70 91 L 02/25/24 16:47 99 02/25/24 16:09 101 H 02/25/24 16:01 97 02/25/24 15:50 22 02/25/24 15:16 91 L 02/25/24 14:57 98.1 F 97 22 163/77 87 L Intake and Output 02/25/24 02/26/24 02/26/24 22:59 06:59 14:59 Intake Total 26.767 701.434 Output Total 50 260 Balance -23.233 441.434 Intake: IV 546 NORMAL SALINE PRESSURE 6 BAG Sodium Chloride 0.9% 1, 40 000 ml @ 20 mls/hr IV . Q24H [facility] Rx#:[id number] Vancomycin 1,500 mg In 500 Sodium Chloride 0.9% 500 ml 500 ml @ 167 mls/hr IVPB ONCE ONE Rx#: [id number] Intake, IV Titration 26.767 155.434 Amount Norepinephrine 32 mg In 66.372 Sodium Chloride 0.9% 218 ml @ 0.03 MCG/KG/MIN 1.34 mls/hr IV .Q24H [facility] Rx#: [id number] propofoL 1,000 mg In 26.767 89.062 Empty Bag 1 bag @ 15 MCG/ KG/MIN 8.573 mls/hr IV . [id number] [facility] Rx#:[id number] Output: Urine 50 260 Uretheral ([place]) 50 Other: Voiding Method Indwelling Catheter ABP, PAP, CO, CI - Last 8 Hours Arterial Blood Pressure 132/61 Arterial Blood Pressure 132/62 Arterial Blood Pressure 63/30 Arterial Blood Pressure 123/59 Arterial Blood Pressure 115/55 Arterial Blood Pressure 123/59 Arterial Blood Pressure 123/58 Arterial Blood Pressure 145/68 Arterial Blood Pressure 150/69 Arterial Blood Pressure 117/53 Arterial Blood Pressure 63/30 Arterial Blood Pressure 143/75 Arterial Blood Pressure 126/62 Arterial Blood Pressure 85/46 Arterial Blood Pressure 79/34 Arterial Blood Pressure 102/46 Arterial Blood Pressure 93/46 Arterial Blood Pressure 88/41 Arterial Blood Pressure 94/42 Arterial Blood Pressure 98/44 Arterial Blood Pressure 105/49 Arterial Blood Pressure 101/45 Arterial Blood Pressure 109/48 Results 02/26/24 04:30 02/26/24 08:14 Cardiac Enzymes 02/25/24 02/25/24 02/26/24 Range/Units 15:53 15:53 04:30 AST 20 28 (17-59) U/L Troponin I <0.012 (0.000-0.034) ng/mL Coagulation 02/25/24 Range/Units 15:53 PT 11.3 (10.0-12.5) sec APTT 23.2 (22.0-30.0) sec CBC 02/25/24 02/26/24 Range/Units 15:53 04:30 WBC 11.2 H 18.9 H (3.8-10.6) k/uL RBC 4.14 L 3.96 L (4.30-5.90) m/uL Hgb 10.5 L 10.7 L (13.0-17.5) gm/dL Hct 37.3 L 36.9 L (39.0-53.0) % Plt Count 315 368 (150-450) k/uL Comprehensive Metabolic Panel 02/25/24 02/26/24 02/26/24 Range/Units 15:53 04:30 08:14 Sodium 138 139 (137-145) mmol/L Potassium 4.8 4.8 (3.5-5.1) mmol/L Chloride 97 L 103 (98-107) mmol/L Carbon Dioxide 39 H 30 (22-30) mmol/L BUN 23 H 30 H (9-20) mg/dL Creatinine 0.45 L 0.81 (0.66-1.25) mg/dL Glucose 103 H 128 H (74-99) mg/dL Calcium 8.5 8.2 L (8.4-10.2) mg/dL AST 20 28 (17-59) U/L ALT 27 30 (4-49) U/L Alkaline Phosphatase 120 110 (38-126) U/L Total Protein 7.8 7.3 (6.3-8.2) g/dL Albumin 3.4 L 3.2 L (3.5-5.0) g/dL Current Medications Generic Name Dose Route Start Last Admin Trade Name Freq PRN Reason Stop Dose Admin Albuterol/Ipratropium 3 ml 02/26/24 08:00 02/26/24 08:04 Ipratropium-Albuterol 3 Ml Neb INHALATION 3 ml RT-Q4H ANNIE Administration Chlorhexidine Gluconate 15 ml 02/26/24 09:00 02/26/24 08:45 Chlorhexidine Gluconate 15 Ml Cup MUCOUS MEM 15 ml BID ANNIE Administration Dextrose/Water 25 ml 02/26/24 08:17 Dextrose 50% Syringe 50 Ml IVP PER PROTOCOL PRN Hypoglycemia Protocol Dextrose/Water 50 ml 02/26/24 08:17 Dextrose 50% Syringe 50 Ml IVP PER PROTOCOL PRN Hypoglycemia Protocol Sodium Chloride 1,000 mls @ 20 mls/hr 02/25/24 17:30 02/25/24 18:47 Saline 0.9% IV 20 mls/hr .Q24H ANNIE Administration Piperacillin Sod/Tazobactam 100 mls @ 25 mls/hr 02/26/24 03:00 02/26/24 06:19 Sod 3.375 gm/ Sodium Chloride IVPB Not Given Q8H ANNIE Protocol Propofol 1,000 mg/ IV Solution 100 mls @ 8.573 mls/hr 02/26/24 03:15 02/26/24 08:40 IV 60 mcg/kg/min .[id number] ANNIE 34.291 mls/hr Titration Protocol 15 MCG/KG/MIN Norepinephrine Bitartrate 32 250 mls @ 1.34 mls/hr 02/26/24 03:55 02/26/24 09:48 mg/ Sodium Chloride IV 02/27/24 03:54 0.275 mcg/kg/min .Q24H [facility] 12.279 mls/hr Titration Protocol 0.03 MCG/KG/MIN Vasopressin 60 unit/ Sodium 153 mls @ 4.59 mls/hr 02/26/24 06:15 02/26/24 07:10 Chloride IV Not Given .Q24H ANNIE Protocol 0.03 UNITS/MIN Vancomycin HCl 1,500 mg/ 500 mls @ 167 mls/hr 02/26/24 08:00 02/26/24 08:46 Sodium Chloride IVPB 02/26/24 10:59 167 mls/hr ONCE ONE Administration Vancomycin HCl 1,750 mg/ 500 mls @ 167 mls/hr 02/27/24 09:00 Sodium Chloride IVPB Q24HR ANNIE Insulin Aspart 0 unit 02/26/24 12:00 Insulin Aspart (Novolog) 100 Unit/Ml Vial SQ Q6H [facility] Protocol Naloxone HCl 0.2 mg 02/25/24 17:20 02/26/24 02:02 Naloxone 0.4 Mg/Ml 1 Ml Vial IV 0.2 mg Q2M PRN Administration Opioid Reversal Pantoprazole Sodium 40 mg 02/26/24 09:00 02/26/24 08:46 Pantoprazole 40 Mg/10 Ml Vial IVP 40 mg DAILY ANNIE Administration Intake and Output 02/25/24 02/26/24 02/26/24 22:59 06:59 14:59 Intake Total 26.767 701.434 Output Total 50 260 Balance -23.233 441.434 Intake: IV 546 NORMAL SALINE PRESSURE 6 BAG Sodium Chloride 0.9% 1, 40 000 ml @ 20 mls/hr IV . Q24H [facility] Rx#:[id number] Vancomycin 1,500 mg In 500 Sodium Chloride 0.9% 500 ml 500 ml @ 167 mls/hr IVPB ONCE ONE Rx#: [id number] Intake, IV Titration 26.767 155.434 Amount Norepinephrine 32 mg In 66.372 Sodium Chloride 0.9% 218 ml @ 0.03 MCG/KG/MIN 1.34 mls/hr IV .Q24H [facility] Rx#: [id number] propofoL 1,000 mg In 26.767 89.062 Empty Bag 1 bag @ 15 MCG/ KG/MIN 8.573 mls/hr IV . [id number] [facility] Rx#:[id number] Output: Urine 50 260 Uretheral ([place]) 50 Other: Voiding Method Indwelling Catheter 02/26/24 04:30 02/26/24 08:14
[2024-02-26 11:10] LABS: ABG Base Excess 0.6 mmol/L; ABG HCO3 25 mmol/L (21-25); ABG Oxygen Saturation >100.0 % (94-97); ABG PCO2 41 mmHg (35-45); ABG PH 7.41 (7.35-7.45); ABG PO2 139 mmHg (83-108); ABG TCO2 27 mmol/L (19-24)
[2024-02-26 11:12] LABS: Allen Test Performed? no
[2024-02-26 12:05] LABS: Glucose,Whole Blood 157 mg/dL (70-110)
[2024-02-26] MEDS: MVI, ADULT NO.4 WITH VIT K 10 ML, TRACE (CONC-1ML/DOSE) 1 ML, SODIUM ACETATE 30 MEQ, PO... IV SCH (12:31)
[2024-02-26] MEDS: INSULIN ASPART (NovoLOG) 100 UNIT/ML VIAL SQ SCH (13:59)
[2024-02-26 18:33] LABS: Glucose,Whole Blood 231 mg/dL (70-110)
[2024-02-26] MEDS: ENOXAPARIN 80 MG/0.8 ML SYRINGE SQ SCH (20:41)
--- NOTE | 2024-02-26 21:56 | P.CONS ---
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 Patient now presenting to the hospital for evaluation of worsening shortness of breath and hypoxemia patient symptom has been going on for about 3 to 4 days and has been evaluated in the ER 3 days ago and was sent home as nothing wrong was found with the patient as reported by the family however the patient did have worsening shortness of breath he also have a cough moderate intensity but not bring up any sputum and the patient was getting hypoxic with low O2 sats for the patient has been brought back to the hospital on arrival to the ER the patient was running a low-grade fever of 99.3 F patient was tachycardic mildly hypotensive requiring pressor support got intubated because of worsening respiratory status patient was started on vancomycin and Zosyn infectious disease was consulted for further management of antibiotic therapy patient did have white count of 18.9 creatinine 0.81 liver isms are normal urine has been negative influenza RSV COVID testing negative he did have a chest x-ray suspected posterior right pleural effusion and or infiltrate Review of Systems Positive points has been mentioned in HPI complete review could not be obtained because patient intubated on the vent Past Medical History Past Medical History: CVA/TIA, Deep Vein Thrombosis (DVT) Additional Past Medical History / Comment(s): Progressing left upper thigh pain and swelling and left leg weakness. 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 Crohns. Ostomy Bag placed in 09/2021. History of Any Multi-Drug Resistant Organisms: MRSA Year Discovered:: 12/14/23 MDRO Source:: MRSA- nasal Past Surgical History: Cholecystectomy, Orthopedic Surgery Additional Past Surgical History / Comment(s): Arm surgery, right leg below knee amputation, ostomy (2021) Past Anesthesia/Blood Transfusion Reactions: No Reported Reaction Past Psychological History: No Psychological Hx Reported Smoking Status: Former smoker Past Alcohol Use History: None Reported Past Drug Use History: None Reported - Past Family History Father Additional Family Medical History / Comment(s): DAD IN HIS TWENTIES - CAUSE UNKNOWN. Mother Family Medical History: Diabetes Mellitus Brother(s) Family Medical History: Cancer Additional Family Medical History / Comment(s): Kidney cancer as a baby. Medications and Allergies Home Medications Medication Instructions Recorded Confirmed Type Enoxaparin [Lovenox] 80 mg SQ BID@0900,2100 07/07/22 02/25/24 History Pantoprazole [Protonix] 40 mg PO DAILY@0730 07/07/22 02/25/24 History Albuterol Sulfate [Albuterol 2 puff INHALATION RT-Q4H PRN 09/10/22 02/25/24 History Sulfate Hfa] Loperamide HCl [Loperamide] 4 mg PO QID@08,12,16,20 11/10/22 02/25/24 History Ferrous Sulfate [Iron (65 MG 325 mg PO DAILY@0900 12/12/23 02/25/24 History Elemental)] Heparin Sodium,Porcine/Pf [Heparin 500 unit IV DAILY PRN 12/12/23 02/25/24 History 500 Unit/5 ml (100/ml) Flush] Metoprolol Tartrate [Lopressor] 12.5 mg PO BID@0900,2100 12/12/23 02/25/24 History Vitamin A 2,400 mcg PO DAILY@0900 12/12/23 02/25/24 History traZODone HCL [Desyrel] 50 mg PO HS PRN 12/12/23 02/25/24 History Cholecalciferol (Vitamin D3) 1,250 mcg PO MOTH 12/13/23 02/25/24 History [Vitamin D3 (1250 Mcg = 50,000 Iu)] Furosemide [Lasix] 40 mg PO BID@0900,1600 #30 tab 12/25/23 02/25/24 Rx Ipratropium-Albuterol Nebulize 3 ml INHALATION RT-QID #100 each 01/14/24 02/25/24 Rx [Duoneb 0.5 mg-3 mg/3 ml Soln] Sodium Chloride 0.65% Nasal [Deep 2 spray NASAL QID PRN ml 01/14/24 02/25/24 Rx Sea (Saline)] 0.9 % Sodium Chloride [Sodium 10 ml IV DAILY PRN 02/25/24 02/25/24 History Chloride Flush] 0.9 % Sodium Chloride [Sodium 10 ml IV DAILY@1000 02/25/24 02/25/24 History Chloride Flush] Heparin Sodium,Porcine/Pf [Heparin 500 unit IV DAILY@1000 02/25/24 02/25/24 History 500 Unit/5 ml (100/ml) Flush] Omeprazole [PriLOSEC] 40 mg PO DAILY@0900 02/25/24 02/25/24 History Jsgsr-Jwz-Jbve 280-160-250 mg 1 packet PO TID 02/25/24 02/25/24 History [Neutra-Phos Packet] Allergies Allergy/AdvReac Type Severity Reaction Status Date / Time No Known Allergies Allergy Verified 02/25/24 18:37 Physical Exam Vitals: Vital Signs Temp Pulse Resp BP Pulse Ox FiO2 02/26/24 14:15 80 26 H 99 02/26/24 14:00 70 26 H 100 70 02/26/24 13:45 85 26 H 100 02/26/24 13:30 85 15 99 02/26/24 13:15 105 H 26 H 100 02/26/24 13:00 103 H 26 H 100 02/26/24 12:45 70 26 H 100 02/26/24 12:42 57 L 02/26/24 12:33 70 02/26/24 12:31 64 02/26/24 12:30 58 L 26 H 100 02/26/24 12:15 59 L 26 H 100 02/26/24 12:00 60 26 H 133/64 100 80 02/26/24 11:51 80 02/26/24 11:45 63 26 H 100 02/26/24 11:30 59 L 26 H 100 02/26/24 11:15 69 26 H 100 02/26/24 11:13 80 02/26/24 11:00 64 26 H 100 02/26/24 10:45 60 26 H 100 02/26/24 10:30 68 26 H 100 02/26/24 10:15 68 26 H 100 02/26/24 10:00 63 26 H 100 02/26/24 09:45 75 26 H 100 02/26/24 09:30 74 26 H 100 02/26/24 09:15 69 26 H 100 02/26/24 09:00 77 26 H 61/34 100 02/26/24 08:45 75 26 H 89/56 100 02/26/24 08:30 74 26 H 111/74 100 02/26/24 08:23 74 02/26/24 08:15 73 26 H 126/63 100 02/26/24 08:04 72 02/26/24 08:00 98.6 F 69 26 H 140/72 100 100 02/26/24 07:58 90 02/26/24 07:45 66 26 H 125/59 100 02/26/24 07:30 68 26 H 121/111 100 02/26/24 07:16 100 02/26/24 07:15 68 26 H 79/66 98 02/26/24 07:00 99.3 F 74 26 H 101/60 95 100 02/26/24 06:52 75 22 109/89 96 02/26/24 06:30 64 26 H 74/63 100 02/26/24 06:15 50 L 11 L 99 02/26/24 06:00 57 L 9 L 69/47 99 02/26/24 05:45 59 L 26 H 81/44 98 02/26/24 05:35 60 26 H 96 02/26/24 05:30 60 26 H 96 02/26/24 05:25 58 L 26 H 97 02/26/24 05:20 59 L 26 H 97 02/26/24 05:15 61 24 98 02/26/24 05:10 74 22 97 02/26/24 05:05 65 22 98 02/26/24 05:00 60 22 98 02/26/24 04:30 81 22 97/46 100 02/26/24 04:25 59 L 22 115/96 97 02/26/24 04:20 77 22 64/36 97 02/26/24 04:15 88 22 58/37 97 02/26/24 04:10 70 22 60/33 97 02/26/24 04:00 76 20 57/28 97 02/26/24 03:55 81 20 52/30 94 L 02/26/24 03:45 82 20 54/29 94 L 02/26/24 03:40 85 20 66/34 94 L 02/26/24 03:35 100 02/26/24 03:30 78 20 93/38 95 02/26/24 03:10 61 16 82/59 89 L 02/26/24 02:35 72 18 117/47 87 L 02/26/24 02:22 100 02/26/24 02:02 18 02/26/24 01:00 100 18 160/130 88 L 02/26/24 00:00 86 20 156/65 89 L 02/25/24 22:00 100 20 148/68 92 L 02/25/24 21:00 97 22 156/74 02/25/24 20:00 100 18 147/69 02/25/24 19:00 100 18 120/62 02/25/24 18:42 98 20 144/70 91 L 02/25/24 16:47 99 02/25/24 16:09 101 H 02/25/24 16:01 97 02/25/24 15:50 22 02/25/24 15:16 91 L 02/25/24 14:57 98.1 F 97 22 163/77 87 L Intake and Output 02/25/24 02/26/24 02/26/24 22:59 06:59 14:59 Intake Total 26.767 881.368 Output Total 50 260 Balance -23.233 621.368 Intake: IV 546 NORMAL SALINE PRESSURE 6 BAG Sodium Chloride 0.9% 1, 40 000 ml @ 20 mls/hr IV . Q24H [facility] Rx#:[id number] Vancomycin 1,500 mg In 500 Sodium Chloride 0.9% 500 ml 500 ml @ 167 mls/hr IVPB ONCE ONE Rx#: [id number] Intake, IV Titration 26.767 335.368 Amount Norepinephrine 32 mg In 90.725 Sodium Chloride 0.9% 218 ml @ 0.03 MCG/KG/MIN 1.34 mls/hr IV .Q24H [facility] Rx#: [id number] propofoL 1,000 mg In 26.767 244.643 Empty Bag 1 bag @ 15 MCG/ KG/MIN 8.573 mls/hr IV . [id number] [facility] Rx#:[id number] Output: Urine 50 260 Uretheral ([place]) 50 Other: Voiding Method Indwelling Catheter ABP, PAP, CO, CI - Last 8 Hours Arterial Blood Pressure 147/58 Arterial Blood Pressure 173/64 Arterial Blood Pressure 97/42 Arterial Blood Pressure 167/64 Arterial Blood Pressure 92/35 Arterial Blood Pressure 136/52 Arterial Blood Pressure 154/65 Arterial Blood Pressure 141/68 Arterial Blood Pressure 140/63 Arterial Blood Pressure 146/70 Arterial Blood Pressure 147/63 Arterial Blood Pressure 158/63 Arterial Blood Pressure 151/64 Arterial Blood Pressure 125/64 Arterial Blood Pressure 109/68 Arterial Blood Pressure 126/55 Arterial Blood Pressure 128/52 Arterial Blood Pressure 127/55 Arterial Blood Pressure 79/69 Arterial Blood Pressure 132/61 Arterial Blood Pressure 132/62 Arterial Blood Pressure 63/30 Arterial Blood Pressure 123/59 Arterial Blood Pressure 115/55 Arterial Blood Pressure 123/59 Arterial Blood Pressure 123/58 Arterial Blood Pressure 145/68 Arterial Blood Pressure 150/69 Arterial Blood Pressure 117/53 Arterial Blood Pressure 63/30 Arterial Blood Pressure 143/75 GENERAL DESCRIPTION: Middle-age male intubated on the vent HEENT: Shows Pallor , no scleral icterus. Oral mucous membrane is dry. NECK: Trachea central, no thyromegaly. LUNGS: Unlabored breathing. Decreased breath sounds at the base HEART: S1, S2, regular rate and rhythm. No loud murmur ABDOMEN: Soft, no tenderness , EXTREMITIES: No edema of feet. SKIN: No rash, no masses palpable. NEUROLOGICAL: The patient is sedated on the vent Results CBC & Chem 7: 02/26/24 04:30 02/26/24 08:14 Labs: Abnormal Lab Results - Last 24 Hours (Table) 02/25/24 02/25/24 02/26/24 Range/Units 15:53 15:53 04:30 WBC 11.2 H 18.9 H (3.8-10.6) k/uL RBC 4.14 L 3.96 L (4.30-5.90) m/uL Hgb 10.5 L 10.7 L (13.0-17.5) gm/dL Hct 37.3 L 36.9 L (39.0-53.0) % MCHC 28.1 L 28.9 L (31.0-37.0) g/dL RDW 17.5 H 16.7 H (11.5-15.5) % Neutrophils # (Manual) 17.50 H (1.3-7.7) k/uL Lymphocytes # (Manual) 0.57 L (1.0-4.8) k/uL Metamyelocytes # (Man) 0.19 H (0) k/uL ABG pH (7.35-7.45) ABG pCO2 (35-45) mmHg ABG pO2 (83-108) mmHg ABG HCO3 (21-25) mmol/L ABG Total CO2 (19-24) mmol/L ABG O2 Saturation (94-97) % Hemoglobin (13.0-17.5) gm/dL Chloride 97 L (98-107) mmol/L Carbon Dioxide 39 H (22-30) mmol/L BUN 23 H (9-20) mg/dL Creatinine 0.45 L (0.66-1.25) mg/dL Glucose 103 H (74-99) mg/dL POC Glucose (mg/dL) (70-110) mg/dL Calcium (8.4-10.2) mg/dL Phosphorus (2.5-4.5) mg/dL Magnesium 2.4 H (1.6-2.3) mg/dL Albumin 3.4 L (3.5-5.0) g/dL Procalcitonin (0.02-0.50) ng/mL Urine Protein (Negative) Urine Blood (Negative) Urine Mucus (None) /hpf 02/26/24 02/26/24 02/26/24 Range/Units 04:30 04:30 04:54 WBC (3.8-10.6) k/uL RBC (4.30-5.90) m/uL Hgb (13.0-17.5) gm/dL Hct (39.0-53.0) % MCHC (31.0-37.0) g/dL RDW (11.5-15.5) % Neutrophils # (Manual) (1.3-7.7) k/uL Lymphocytes # (Manual) (1.0-4.8) k/uL Metamyelocytes # (Man) (0) k/uL ABG pH 7.11 L* (7.35-7.45) ABG pCO2 98 H* (35-45) mmHg ABG pO2 (83-108) mmHg ABG HCO3 31 H (21-25) mmol/L ABG Total CO2 34 H (19-24) mmol/L ABG O2 Saturation (94-97) % Hemoglobin 10.5 L (13.0-17.5) gm/dL Chloride (98-107) mmol/L Carbon Dioxide (22-30) mmol/L BUN 30 H (9-20) mg/dL Creatinine (0.66-1.25) mg/dL Glucose 128 H (74-99) mg/dL POC Glucose (mg/dL) (70-110) mg/dL Calcium 8.2 L (8.4-10.2) mg/dL Phosphorus 8.1 H (2.5-4.5) mg/dL Magnesium 2.7 H (1.6-2.3) mg/dL Albumin 3.2 L (3.5-5.0) g/dL Procalcitonin 0.63 H (0.02-0.50) ng/mL Urine Protein (Negative) Urine Blood (Negative) Urine Mucus (None) /hpf 02/26/24 02/26/24 02/26/24 Range/Units 06:42 08:14 11:08 WBC (3.8-10.6) k/uL RBC (4.30-5.90) m/uL Hgb (13.0-17.5) gm/dL Hct (39.0-53.0) % MCHC (31.0-37.0) g/dL RDW (11.5-15.5) % Neutrophils # (Manual) (1.3-7.7) k/uL Lymphocytes # (Manual) (1.0-4.8) k/uL Metamyelocytes # (Man) (0) k/uL ABG pH (7.35-7.45) ABG pCO2 (35-45) mmHg ABG pO2 139 H (83-108) mmHg ABG HCO3 (21-25) mmol/L ABG Total CO2 27 H (19-24) mmol/L ABG O2 Saturation >100.0 H (94-97) % Hemoglobin 10.1 L (13.0-17.5) gm/dL Chloride (98-107) mmol/L Carbon Dioxide (22-30) mmol/L BUN (9-20) mg/dL Creatinine (0.66-1.25) mg/dL Glucose (74-99) mg/dL POC Glucose (mg/dL) 130 H (70-110) mg/dL Calcium (8.4-10.2) mg/dL Phosphorus (2.5-4.5) mg/dL Magnesium (1.6-2.3) mg/dL Albumin (3.5-5.0) g/dL Procalcitonin (0.02-0.50) ng/mL Urine Protein Trace H (Negative) Urine Blood Trace H (Negative) Urine Mucus Rare H (None) /hpf 02/26/24 Range/Units 12:04 WBC (3.8-10.6) k/uL RBC (4.30-5.90) m/uL Hgb (13.0-17.5) gm/dL Hct (39.0-53.0) % MCHC (31.0-37.0) g/dL RDW (11.5-15.5) % Neutrophils # (Manual) (1.3-7.7) k/uL Lymphocytes # (Manual) (1.0-4.8) k/uL Metamyelocytes # (Man) (0) k/uL ABG pH (7.35-7.45) ABG pCO2 (35-45) mmHg ABG pO2 (83-108) mmHg ABG HCO3 (21-25) mmol/L ABG Total CO2 (19-24) mmol/L ABG O2 Saturation (94-97) % Hemoglobin (13.0-17.5) gm/dL Chloride (98-107) mmol/L Carbon Dioxide (22-30) mmol/L BUN (9-20) mg/dL Creatinine (0.66-1.25) mg/dL Glucose (74-99) mg/dL POC Glucose (mg/dL) 157 H (70-110) mg/dL Calcium (8.4-10.2) mg/dL Phosphorus (2.5-4.5) mg/dL Magnesium (1.6-2.3) mg/dL Albumin (3.5-5.0) g/dL Procalcitonin (0.02-0.50) ng/mL Urine Protein (Negative) Urine Blood (Negative) Urine Mucus (None) /hpf Assessment and Plan (1) Pneumonia Current Visit: No Status: Acute Code(s): J18.9 - PNEUMONIA, UNSPECIFIED ORGANISM SNOMED Code(s): 412562463 (2) Sepsis Current Visit: No Status: Acute Code(s): A41.9 - SEPSIS, UNSPECIFIED ORGANISM SNOMED Code(s): 77484027 Plan: 1patient presented to hospital with sepsis in this patient who did have a low- grade fever elevated white count tachycardia meeting criteria for SIRS source likely pneumonia at this patient presenting with increasing shortness of breath cough with evidence of right-sided infiltrate, patient has been admitted to the hospital and will need to cover for resistant gram-positive as well as gram- negative 2-sputum for Gram stain culture has been requested blood culture has been obtained results will be followed 3continue with vancomycin pharmacy to dose while watching his kidney function closely however switch Zosyn to cefepime to decrease risk of nephrotoxicity Family at the bedside questions answered We will follow on clinical condition and cultures to further adjust medication if needed Thank you for this consultation we will follow the patient along with you Dictation was produced using [employer] dictation software. please excuse any gramma tical, word or spelling errors. Time with Patient: Greater than 30
[2024-02-26 23:43] LABS: Glucose,Whole Blood 214 mg/dL (70-110)
[2024-02-26] MEDS: CEFEPIME 2 GM in SODIUM CHLORIDE 0.9% 100 ML IVPB SCH (23:49)
--- NOTE | 2024-02-27 05:00 | P.HPIM ---
History of Present Illness H&P Date: 02/26/24 This is a 48-year-old male who presented to the emergency department with increased shortness of breath and hypoxia with concerns of possible pneumonia. Patient was placed on nonrebreather and ultimately required BiPAP as patient chronically wears oxygen outpatient and became more obtunded and unresponsive requiring mechanical ventilation and was admitted to the ICU with hypoxia and concerns for pneumonia. Patient follows with Dr. Ivey in the outpatient setting with a significant past medical history of CVA, DVT, Crohn's, previous MRSA infections, right BKA and multiple hospitalizations. Patient is maintained on TPN outpatient for his chronic malnutrition secondary to Crohn's and was most recently hospitalized earlier this year requiring ICU admission and mechanical ventilation with continuous mucous plugging requiring multiple bronchoscopies. Blood pressures are also low requiring pressor support. Antibiotics were started with concerns of pneumonia. Procalcitonin ordered. Recommend infectious disease evaluation and appreciate input and recommendations as well. REVIEW OF SYSTEMS: Unable to completely assess as patient is on mechanical ventilation and sedated The rest of the 14-point review of systems is negative. Active Medications Albuterol/Ipratropium (Ipratropium-Albuterol 3 Ml Neb) 3 ml INHALATION RT-Q4H [facility] Last Admin: 02/27/24 03:31 Dose: 3 ml Chlorhexidine Gluconate (Chlorhexidine Gluconate 15 Ml Cup) 15 ml MUCOUS MEM BID [facility] Last Admin: 02/26/24 20:41 Dose: 15 ml Dextrose/Water (Dextrose 50% Syringe 50 Ml) 25 ml IVP PER PROTOCOL PRN; Protocol PRN Reason: Hypoglycemia Dextrose/Water (Dextrose 50% Syringe 50 Ml) 50 ml IVP PER PROTOCOL PRN; Protocol PRN Reason: Hypoglycemia Enoxaparin Sodium (Enoxaparin 80 Mg/0.8 Ml Syringe) 80 mg SQ BID@0900,2100 [facility] Last Admin: 02/26/24 20:41 Dose: 80 mg Sodium Chloride (Saline 0.9%) 1,000 mls @ 20 mls/hr IV .Q24H [facility] Last Admin: 02/26/24 17:42 Dose: Not Given Propofol 1,000 mg/ IV Solution 100 mls @ 8.573 mls/hr IV .[id number] [facility]; Protocol Last Admin: 02/27/24 01:37 Dose: 75 mcg/kg/min, 42.864 mls/hr Vasopressin 60 unit/ Sodium (Chloride) 153 mls @ 4.59 mls/hr IV .Q24H [facility]; Protocol Last Admin: 02/26/24 07:10 Dose: Not Given Vancomycin HCl 1,750 mg/ (Sodium Chloride) 500 mls @ 167 mls/hr IVPB Q24HR ANNIE Parenteral Vitamin Supplement 10 ml/ Zinc/Copper/Manganese/Selenium 1 ml/ Sodium Acetate 30 meq/ Potassium Chloride 20 meq/ Calcium Gluconate 1 gm/Amino Acids/Dextrose 1,046 mls @ 30 mls/hr IV .Q24H [facility] Last Admin: 02/26/24 12:31 Dose: 30 mls/hr Cefepime HCl 2 gm/ Sodium (Chloride) 100 mls @ 25 mls/hr IVPB Q8HR [facility]; Protocol Last Admin: 02/26/24 23:49 Dose: 25 mls/hr Insulin Aspart (Insulin Aspart (Novolog) 100 Unit/Ml Vial) 0 unit SQ Q6H ANNIE; Protocol Last Admin: 02/26/24 23:48 Dose: 4 unit Naloxone HCl (Naloxone 0.4 Mg/Ml 1 Ml Vial) 0.2 mg IV Q2M PRN PRN Reason: Opioid Reversal Last Admin: 02/26/24 02:02 Dose: 0.2 mg Pantoprazole Sodium (Pantoprazole 40 Mg/10 Ml Vial) 40 mg IVP DAILY [facility] Last Admin: 02/26/24 08:46 Dose: 40 mg PHYSICAL EXAMINATION: GENERAL: The patient is currently on mechanical ventilation with an FiO2 of 90%, PEEP is 5. Well developed, appears older than stated age, ill-appearing, obese HEENT: Pupils are round and equally reacting to light. EOMI. No scleral icterus. No conjunctival pallor. Normocephalic, atraumatic. No pharyngeal erythema. No thyromegaly. CARDIOVASCULAR: S1 and S2 muffled, tachycardic PULMONARY: Diminished breath sounds bilaterally with ventilator assist breathing, some bronchial congestion noted ABDOMEN: Soft, nontender, nondistended, normoactive bowel sounds. No palpable organomegaly. Ostomy noted MUSCULOSKELETAL: No joint swelling or deformity. EXTREMITIES: No cyanosis, clubbing, or pedal edema. Right BKA noted, diffusely weak currently on sedation NEUROLOGICAL: Gross neurological examination did not reveal any focal deficits. Unable to completely assess as patient is sedated SKIN: No rashes. Assessment: Shortness of breath, acute hypoxic respiratory failure requiring mechanical ventilation, likely secondary to recurrent mucous plugging with concerns of possible right lower lobe pneumonia Possible right lower lobe pneumonia, present on admission versus recurrent mucous plugging with atelectasis, will obtain procalcitonin Sepsis, present on admission secondary to above History of tracheobronchomalacia History of anemia History of CVA History of DVT and right BKA History of Crohn's disease with previous bowel perforation with colectomy and end ileostomy with chronic wounds with enterocutaneous fistulas Severe protein calorie malnutrition secondary to Crohn's and maintained on TPN outpatient History of previous tracheostomy with tracheal stenosis History of previous cardiac arrest in 2021 History of MRSA previously Former smoker Obesity with a BMI of 30.8 GI prophylaxis DVT prophylaxis Full code Plan: Patient was admitted for hypoxia with increasing shortness of breath initially started on BiPAP although unresponsive requiring emergent mechanical ventilation Patient continues in the ICU with pulmonary bulk clerk following. Antibiotics have been started with concerns of pneumonia and procalcitonin is pending. Will consult infectious disease and appreciate input and recommendations Recommend frequent suctioning per pulmonary bulk clerk and monitor respiratory status closely for any further mucous plugging. Patient was recently hospitalized in the ICU for quite some time and underwent multiple bronchosc opies Continue local wound care and also consult ostomy nurse Follow-up on repeat labs and replace electrolytes per protocol Cardiology consulted and pending Will consult dietary as well regarding TPN Due to multiple complex medical issues, overall prognosis is guarded CODE STATUS was addressed once again with family and they are adamant patient remains full code The impression and plan of care has been dictated by Alyssa Hernandez, Nurse Practitioner as directed. Dr. Mo MD I have performed a history and examination and MDM of this patient, discussed the same with the dictator, and agree with the dictator's assessment and plan as written ,documented as a scribe. Based on total visit time, I have performed more than 50% of the visit. Past Medical History Past Medical History: CVA/TIA, Deep Vein Thrombosis (DVT) Additional Past Medical History / Comment(s): Progressing left upper thigh pain and swelling and left leg weakness. 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 Crohns. Ostomy Bag placed in 09/2021. History of Any Multi-Drug Resistant Organisms: MRSA Date of last positivie culture/infection: 12/14/23 MDRO Source:: MRSA- nasal Past Surgical History: Cholecystectomy, Orthopedic Surgery Additional Past Surgical History / Comment(s): Arm surgery, right leg below knee amputation, ostomy (2021) Past Anesthesia/Blood Transfusion Reactions: No Reported Reaction Past Psychological History: No Psychological Hx Reported Smoking Status: Former smoker Past Alcohol Use History: None Reported Past Drug Use History: None Reported - Past Family History Father Additional Family Medical History / Comment(s): DAD IN HIS TWENTIES - CAUSE UNKNOWN. Mother Family Medical History: Diabetes Mellitus Brother(s) Family Medical History: Cancer Additional Family Medical History / Comment(s): Kidney cancer as a baby. Medications and Allergies Home Medications Medication Instructions Recorded Confirmed Type Enoxaparin [Lovenox] 80 mg SQ BID@0900,2100 07/07/22 02/25/24 History Pantoprazole [Protonix] 40 mg PO DAILY@0730 07/07/22 02/25/24 History Albuterol Sulfate [Albuterol 2 puff INHALATION RT-Q4H PRN 09/10/22 02/25/24 History Sulfate Hfa] Loperamide HCl [Loperamide] 4 mg PO QID@08,12,16,20 11/10/22 02/25/24 History Ferrous Sulfate [Iron (65 MG 325 mg PO DAILY@0900 12/12/23 02/25/24 History Elemental)] Heparin Sodium,Porcine/Pf [Heparin 500 unit IV DAILY PRN 12/12/23 02/25/24 History 500 Unit/5 ml (100/ml) Flush] Metoprolol Tartrate [Lopressor] 12.5 mg PO BID@0900,2100 12/12/23 02/25/24 History Vitamin A 2,400 mcg PO DAILY@0900 12/12/23 02/25/24 History traZODone HCL [Desyrel] 50 mg PO HS PRN 12/12/23 02/25/24 History Cholecalciferol (Vitamin D3) 1,250 mcg PO MOTH 12/13/23 02/25/24 History [Vitamin D3 (1250 Mcg = 50,000 Iu)] Furosemide [Lasix] 40 mg PO BID@0900,1600 #30 tab 12/25/23 02/25/24 Rx Ipratropium-Albuterol Nebulize 3 ml INHALATION RT-QID #100 each 01/14/24 02/25/24 Rx [Duoneb 0.5 mg-3 mg/3 ml Soln] Sodium Chloride 0.65% Nasal [Deep 2 spray NASAL QID PRN ml 01/14/24 02/25/24 Rx Sea (Saline)] 0.9 % Sodium Chloride [Sodium 10 ml IV DAILY PRN 02/25/24 02/25/24 History Chloride Flush] 0.9 % Sodium Chloride [Sodium 10 ml IV DAILY@1000 02/25/24 02/25/24 History Chloride Flush] Heparin Sodium,Porcine/Pf [Heparin 500 unit IV DAILY@1000 02/25/24 02/25/24 History 500 Unit/5 ml (100/ml) Flush] Omeprazole [PriLOSEC] 40 mg PO DAILY@0900 02/25/24 02/25/24 History [id number]-[id number] 280-160-250 mg 1 packet PO TID 02/25/24 02/25/24 History [Neutra-Phos Packet] Allergies Allergy/AdvReac Type Severity Reaction Status Date / Time No Known Allergies Allergy Verified 02/25/24 18:37 Physical Exam Vitals: Vital Signs Temp Pulse Resp BP Pulse Ox FiO2 02/26/24 08:23 74 02/26/24 08:04 72 02/26/24 07:58 100 02/26/24 07:16 100 02/26/24 07:00 99.3 F 74 26 H 101/60 95 100 02/26/24 06:52 75 22 109/89 96 02/26/24 06:30 64 26 H 74/63 100 02/26/24 06:15 50 L 11 L 99 02/26/24 06:00 57 L 9 L 69/47 99 02/26/24 05:45 59 L 26 H 81/44 98 02/26/24 05:35 60 26 H 96 02/26/24 05:30 60 26 H 96 02/26/24 05:25 58 L 26 H 97 02/26/24 05:20 59 L 26 H 97 02/26/24 05:15 61 24 98 02/26/24 05:10 74 22 97 02/26/24 05:05 65 22 98 02/26/24 05:00 60 22 98 02/26/24 04:30 81 22 97/46 100 02/26/24 04:25 59 L 22 115/96 97 02/26/24 04:20 77 22 64/36 97 02/26/24 04:15 88 22 58/37 97 02/26/24 04:10 70 22 60/33 97 02/26/24 04:00 76 20 57/28 97 02/26/24 03:55 81 20 52/30 94 L 02/26/24 03:45 82 20 54/29 94 L 02/26/24 03:40 85 20 66/34 94 L 02/26/24 03:35 100 02/26/24 03:30 78 20 93/38 95 02/26/24 03:11 100 02/26/24 03:10 61 16 82/59 89 L 02/26/24 02:35 72 18 117/47 87 L 02/26/24 02:22 100 02/26/24 02:02 18 02/26/24 01:00 100 18 160/130 88 L 02/26/24 00:00 86 20 156/65 89 L 02/25/24 22:00 100 20 148/68 92 L 02/25/24 21:00 97 22 156/74 02/25/24 20:00 100 18 147/69 02/25/24 19:00 100 18 120/62 02/25/24 18:42 98 20 144/70 91 L 02/25/24 16:47 99 02/25/24 16:09 101 H 02/25/24 16:01 97 02/25/24 15:50 22 02/25/24 15:16 91 L 02/25/24 14:57 98.1 F 97 22 163/77 87 L Intake and Output 02/25/24 02/26/24 02/26/24 22:59 06:59 14:59 Intake Total 26.767 697.267 Output Total 50 260 Balance -23.233 437.267 Intake: IV 546 NORMAL SALINE PRESSURE 6 BAG Sodium Chloride 0.9% 1, 40 000 ml @ 20 mls/hr IV . Q24H [facility] Rx#:[id number] Vancomycin 1,500 mg In 500 Sodium Chloride 0.9% 500 ml 500 ml @ 167 mls/hr IVPB ONCE ONE Rx#: [id number] Intake, IV Titration 26.767 151.267 Amount Norepinephrine 32 mg In 62.205 Sodium Chloride 0.9% 218 ml @ 0.03 MCG/KG/MIN 1.34 mls/hr IV .Q24H ONE Rx#: [id number] propofoL 1,000 mg In 26.767 89.062 Empty Bag 1 bag @ 15 MCG/ KG/MIN 8.573 mls/hr IV . [id number] [facility] Rx#:[id number] Output: Urine 50 260 Uretheral ([place]) 50 Other: Voiding Method Indwelling Catheter ABP, PAP, CO, CI - Last 8 Hours Arterial Blood Pressure 63/30 Arterial Blood Pressure 143/75 Arterial Blood Pressure 126/62 Arterial Blood Pressure 85/46 Arterial Blood Pressure 79/34 Arterial Blood Pressure 102/46 Arterial Blood Pressure 93/46 Arterial Blood Pressure 88/41 Arterial Blood Pressure 94/42 Arterial Blood Pressure 98/44 Arterial Blood Pressure 105/49 Arterial Blood Pressure 101/45 Arterial Blood Pressure 109/48 Results CBC & Chem 7: 02/26/24 04:30 02/26/24 08:14 Labs: Abnormal Lab Results - Last 24 Hours (Table) 02/25/24 02/25/24 02/26/24 Range/Units 15:53 15:53 04:30 WBC 11.2 H 18.9 H (3.8-10.6) k/uL RBC 4.14 L 3.96 L (4.30-5.90) m/uL Hgb 10.5 L 10.7 L (13.0-17.5) gm/dL Hct 37.3 L 36.9 L (39.0-53.0) % MCHC 28.1 L 28.9 L (31.0-37.0) g/dL RDW 17.5 H 16.7 H (11.5-15.5) % Neutrophils # (Manual) 17.50 H (1.3-7.7) k/uL Lymphocytes # (Manual) 0.57 L (1.0-4.8) k/uL Metamyelocytes # (Man) 0.19 H (0) k/uL ABG pH (7.35-7.45) ABG pCO2 (35-45) mmHg ABG HCO3 (21-25) mmol/L ABG Total CO2 (19-24) mmol/L Hemoglobin (13.0-17.5) gm/dL Chloride 97 L (98-107) mmol/L Carbon Dioxide 39 H (22-30) mmol/L BUN 23 H (9-20) mg/dL Creatinine 0.45 L (0.66-1.25) mg/dL Glucose 103 H (74-99) mg/dL POC Glucose (mg/dL) (70-110) mg/dL Calcium (8.4-10.2) mg/dL Phosphorus (2.5-4.5) mg/dL Magnesium 2.4 H (1.6-2.3) mg/dL Albumin 3.4 L (3.5-5.0) g/dL Urine Protein (Negative) Urine Blood (Negative) Urine Mucus (None) /hpf 02/26/24 02/26/24 02/26/24 Range/Units 04:30 04:54 06:42 WBC (3.8-10.6) k/uL RBC (4.30-5.90) m/uL Hgb (13.0-17.5) gm/dL Hct (39.0-53.0) % MCHC (31.0-37.0) g/dL RDW (11.5-15.5) % Neutrophils # (Manual) (1.3-7.7) k/uL Lymphocytes # (Manual) (1.0-4.8) k/uL Metamyelocytes # (Man) (0) k/uL ABG pH 7.11 L* (7.35-7.45) ABG pCO2 98 H* (35-45) mmHg ABG HCO3 31 H (21-25) mmol/L ABG Total CO2 34 H (19-24) mmol/L Hemoglobin 10.5 L (13.0-17.5) gm/dL Chloride (98-107) mmol/L Carbon Dioxide (22-30) mmol/L BUN 30 H (9-20) mg/dL Creatinine (0.66-1.25) mg/dL Glucose 128 H (74-99) mg/dL POC Glucose (mg/dL) 130 H (70-110) mg/dL Calcium 8.2 L (8.4-10.2) mg/dL Phosphorus 8.1 H (2.5-4.5) mg/dL Magnesium 2.7 H (1.6-2.3) mg/dL Albumin 3.2 L (3.5-5.0) g/dL Urine Protein (Negative) Urine Blood (Negative) Urine Mucus (None) /hpf 02/26/24 Range/Units 08:14 WBC (3.8-10.6) k/uL RBC (4.30-5.90) m/uL Hgb (13.0-17.5) gm/dL Hct (39.0-53.0) % MCHC (31.0-37.0) g/dL RDW (11.5-15.5) % Neutrophils # (Manual) (1.3-7.7) k/uL Lymphocytes # (Manual) (1.0-4.8) k/uL Metamyelocytes # (Man) (0) k/uL ABG pH (7.35-7.45) ABG pCO2 (35-45) mmHg ABG HCO3 (21-25) mmol/L ABG Total CO2 (19-24) mmol/L Hemoglobin (13.0-17.5) gm/dL Chloride (98-107) mmol/L Carbon Dioxide (22-30) mmol/L BUN (9-20) mg/dL Creatinine (0.66-1.25) mg/dL Glucose (74-99) mg/dL POC Glucose (mg/dL) (70-110) mg/dL Calcium (8.4-10.2) mg/dL Phosphorus (2.5-4.5) mg/dL Magnesium (1.6-2.3) mg/dL Albumin (3.5-5.0) g/dL Urine Protein Trace H (Negative) Urine Blood Trace H (Negative) Urine Mucus Rare H (None) /hpf Thrombosis Risk Factor Assmnt - DVT/VTE Prophylaxis DVT/VTE Prophylaxis: Pharmacologic Prophylaxis ordered Assessment and Plan Time with Patient: Greater than 30
[2024-02-27 05:22] LABS: Anisocytosis Slight; HCT 28.1 % (39.0-53.0); Hypochromasia Marked; MCHC 30.2 g/dL (31.0-37.0); MCV 89.3 fL (80.0-100.0); Mean Platelet Volume 8.8; Platelet Count 207 k/uL (150-450); RBC 3.14 m/uL (4.30-5.90); RDW 17.4 % (11.5-15.5); WBC 5.8 k/uL (3.8-10.6)
[2024-02-27 05:34] LABS: HGB 8.5 gm/dL (13.0-17.5)
[2024-02-27 05:40] LABS: ABG HCO3 27 mmol/L (21-25); ABG PCO2 35 mmHg (35-45); ABG PO2 120 mmHg (83-108); ABG TCO2 28 mmol/L (19-24); Allen Test Performed? Yes
[2024-02-27 05:44] LABS: Glucose,Whole Blood 175 mg/dL (70-110)
--- NOTE | 2024-02-27 07:41 | XR ---
EXAMINATION TYPE: XR chest 1V DATE OF EXAM: 02/27/2024 5:29 AM COMPARISON: 02/26/2024 CLINICAL INDICATION: Male, 48 years old with history of intubated/ tube placement, TECHNIQUE: XR chest 1V view(s) obtained. FINDINGS: The heart size is normal. The pulmonary vasculature is normal. Mild right lower lobe infiltrate is present. Some perihilar increased lung markings are present on th e right. Endotracheal tube tip is 6 cm above the avery. Nasogastric tube transverses the thorax right central venous catheter on the left has tip in the distal superior vena cava region. IMPRESSION: 1. Improving right perihilar and lower lobe infiltrate. 2. Lines and catheters discussed above [facility], , 02/27/2024 7:39 AM
[2024-02-27] MEDS: VANCOMYCIN 1,750 MG in SODIUM CHLORIDE 0.9% 500 ML 500 ML IVPB SCH ×2 (08:40→11:21)
[2024-02-27 09:01] LABS: African American GFR (CKD) >90 (>60 ml/min/1.73 sqM); Anion Gap 5 mmol/L; Blood Urea Nitrogen 17 mg/dL (9-20); Calcium 8.5 mg/dL (8.4-10.2); Carbon Dioxide 27 mmol/L (22-30); Chloride 105 mmol/L (98-107); Glucose 160 mg/dL (74-99); Magnesium 1.7 mg/dL (1.6-2.3); Non-African American GFR(CKD) >90 (>60 ml/min/1.73 sqM); Potassium 2.8 mmol/L (3.5-5.1); Sodium 137 mmol/L (137-145)
[2024-02-27 09:03] LABS: Phosphorus 0.9 mg/dL (2.5-4.5)
[2024-02-27] MEDS: NOREPINEPHRINE 32 MG in SODIUM CHLORIDE 0.9% 218 ML IV SCH (09:29)
--- NOTE | 2024-02-27 10:43 | CA ---
Transthoracic Echo Report Name: Ponce Beckett Age: 48 Gender: M : 1975 Exam Date: 02/26/2024 10:35 Exam Location: [facility] Ht (in): 70 Wt (lb): 210 Ordering Physician: Trista Matthwe Attending/Referring Phys: [id number], Vipul Customer Service Advisor Susan Valiente RDCS Procedure CPT: Indications: SHORTNESS OF BREATH Cardiac Hx: Technical Quality: Very technically difficult study Contrast 1: Definity Total Dose (mL): 1 Contrast 2: Total Dose (mL): MEASUREMENTS (Male / Female) Normal Values 2D ECHO LV Diastolic Diameter PLAX 6.1 cm 4.2 - 5.9 / 3.9 - 5.3 cm LV Systolic Diameter PLAX 4.2 cm IVS Diastolic Thickness 0.8 cm 0.6 - 1.0 / 0.6 - 0.9 cm LVPW Diastolic Thickness 1.0 cm 0.6 - 1.0 / 0.6 - 0.9 cm LV Relative Wall Thickness 0.3 LVOT Diameter 2.2 cm LV Diastolic Volume MOD BP 108.6 cm??? 67 - 155 / 56 - 104 cm??? LV Systolic Volume MOD BP 41.8 cm??? 22 - 58 / 19 - 49 cm??? LV Ejection Fraction MOD BP 61.5 % >= 55 % LV Cardiac Index MOD BP 2223.4 cm???/min???m??? LV Diastolic Volume MOD 4C 110.5 cm??? LV Systolic Volume MOD 4C 46.9 cm??? LV Ejection Fraction MOD 4C 57.5 % LV Cardiac Index MOD 4C 2115.7 cm???/min???m??? LV Diastolic Length 4C 8.1 cm LV Systolic Length 4C 6.9 cm LV Diastolic Volume MOD 2C 105.7 cm??? LV Systolic Volume MOD 2C 35.3 cm??? LV Ejection Fraction MOD 2C 66.6 % LV Cardiac Index MOD 2C 2343.3 cm???/min???m??? LV Diastolic Length 2C 8.3 cm LV Systolic Length 2C 6.5 cm DOPPLER AV Peak Velocity 153.4 cm/s AV Peak Gradient 9.4 mmHg AV Mean Velocity 93.7 cm/s AV Mean Gradient 4.4 mmHg AV Velocity Time Integral 26.2 cm LVOT Peak Velocity 116.1 cm/s LVOT Peak Gradient 5.4 mmHg LVOT Velocity Time Integral 22.6 cm LVOT Stroke Volume 88.9 cm??? LVOT Stroke Volume Index 41.7 ml/m??? LVOT Cardiac Index 2957.4 cm???/min???m??? AV Area Cont Eq vti 3.4 cm??? AV Area Cont Eq pk 3.0 cm??? MV Area PHT 3.6 cm??? Mitral E Point Velocity 93.9 cm/s Mitral A Point Velocity 78.8 cm/s Mitral E to A Ratio 1.2 MV Deceleration Time 210.1 ms PV Peak Velocity 131.8 cm/s PV Peak Gradient 7.0 mmHg FINDINGS Left Ventricle Left ventricular ejection fraction is estimated at 60-65 %. Mildly increased left ventricular diastolic diameter. Left ventricular cavity size normal. Left ventricular wall thickness normal. No obvious regional wall motion abnormalities. Right Ventricle Right ventricle not well visualized. Unable to estimate the right ventricular systolic pressure. Right Atrium Right atrium not well visualized. Left Atrium Left atrium not well visualized. Mitral Valve Structurally normal mitral valve. No evidence for mitral valve prolapse. No mitral stenosis. Trace mitral regurgitation. Aortic Valve Trileaflet aortic valve. Aortic valve sclerosis. No aortic valve stenosis or regurgitation. Tricuspid Valve Structurally normal tricuspid valve. No tricuspid stenosis. No tricuspid regurgitation. Pulmonic Valve Structurally normal pulmonic valve. No pulmonic stenosis. Trace pulmonic regurgitation. Pericardium No pericardial effusion. Aorta Aortic annulus normal. Ascending aorta not well visualized. CONCLUSIONS Normal LV size and systolic function. Mild concentric LVH. Mild mitral and tricuspid regurgitation. Aortic valve sclerosis no restriction. No pericardial effusion Previewed by: Dr. Stuart Barnhart MD (Electronically Signed) Final Date: 27 February 2024 10:41
--- NOTE | 2024-02-27 11:12 | P.PN ---
Subjective Progress Note Date: 02/27/24 history of present illness - Patient is a 48-year-old male with complex past medical history including CVA, previous DVTs, right BKA, cardiac arrest in 2021, Crohn's disease, enterocutaneous fistulas, previous bowel resection, ventilator dependent respiratory failure, previous tracheostomy and reversal. Recently was admitted 12/13/2023 through 12/25/2023 for pneumonia and respiratory failure due to mucous plugging. He was intubated and placed on mechanical ventilator for approximately 6 days. He did have a bronchoscopy with BAL, microbiology positive for haemophilus influenza. Eventually, discharged home, and returned 01/02/24 for GIB from his ostomy. Was reintubated and did spend some time on the ventilator for reccurent pneumonia and mucous plugging. During this time, had multiple bronchoscopies with BAL, once on 12/31/2023 and again on 01/03/2024, isolated organisms including MRSA and Pseudomonas. Patient was eventually discharged back home on 01/16/2024. More recently, patient had an ER visit for increased work of breathing on February 22, and the patient was sent home. Returned for similar symptoms yesterday afternoon. Chest x-ray done on admission showing cardiomegaly with pulmonary vascular congestion and questionable right lower lobe infiltrate or effusion. CBC: WBC count 11.2, hemoglobin 10.5, hematocrit 37.3, platelets 315. CMP: Sodium 138, potassium 4.8, chloride 97, serum bicarb 39, BUN 23, creatinine 0.45, glucose 103. Lactic 1. LFTs unremarkable. Troponin less than 0.012. I am evaluating this patient emergency department, he is currently unresponsive, to even painful stimuli. He is on a 15 L nonrebreather. SpO2 88%. Diminished breath sounds on the right Will place this patient on BiPAP with initial settings 16/5 FiO2 to be titrated accordingly. Will get a stat ABG. We will repeat chest x-ray. I did talk to the patient's son, Alan, he is adamant that the patient remain a full code, would want the patient intubated if necessary. On reassessment in the emergency department, patient remained on BiPAP with settings 16/5 100%. He remains unresponsive to painful stimuli. Now only achieving tidal volumes ranging from 100 to 200 cc. Unfortunately, we were not able to to get an initial blood gas. I recommended that the patient be moved to the trauma bay and intubated by the [facility] [employer]. Follow-up chest x-ray showing the endotracheal tube in appropriate position above the avery. Orogastric tube coursing below the diaphragm. Initial ventilator settings include assist- control, respiratory rate 20, tidal volume 500, FiO2 100%, PEEP of 5. Currently, patient is fairly asynchronous with the ventilator and he is biting the tube. There are copious amounts of blood-tinged sputum in the ET tube. Elevated peak airway pressures of 45. Static pressure 32. The nurses are working on appropriately sedating the patient with propofol. Postintubation, the patient did become hypotensive, currently receiving his second liter of normal saline. Will also start the patient on norepinephrine to maintain a MAP of greater than 65 mmHg. I did insert a left femoral arterial line. Following this, we did obtain an ABG showing profound hypercapnic and hypoxic respiratory failure. PaO2 of 89, pCO2 98, pH of 7.11. Appropriate ventilator adjustments were made including increasing the rate to 26 and PEEP can be increased to 8. Patient may eventually need repeat bronchoscopy with BAL. Case will be discussed with Dr. Munoz. Patient is still waiting for a bed in the intensive care unit. I did call and update patient's son Alan about his change in clinical condition. 02/27/24 - Patient seen at bedside today, in the ICU. He is on day 3 of his hospital stay, admitted on 02/25/24 and in the ICU since 02/26/24. He remains mechanically ventilated intubated since 02/26/24. He remains on assist-control with a rate of 26, volume 500, FiO2 50% (down from 60%) and a PEEP of 8. ABG done today (on 60% FiO2) showed pO2 126, pCO2 35, pH is 7.50, indicating a mixed respiratory and metabolic alkalosis. Abnormality shown on the patient's lab this morning, inconsistent and drastic changes from previous labs. Will perform a redraw today to get a better idea on how the labs are changed. He remains on vasopressin 0.03 units/min, Levophed at 0.07 mcg/kg/min (6.8 mcg/min), propofol 75 mcg/kg/min, receiving TPN at 30 cc/h (which is goal). Patient's blood pressure today 131/53. Additionally, patient receiving cefepime and vancomycin secondary to leukocytosis and a Tmax on 02/26/24 of 100.5 F. Sputum culture currently pending. Chest x-ray from this morning showed improving right perihilar and lower lobe infiltrate. Additionally, patient is currently receiving TPN ([employer]) at 30 cc/h which is goal for dietitian. REVIEW OF SYSTEMS: Unable to assess as patient is currently intubated mechanically ventilated. PHYSICAL EXAMINATION: GENERAL: Patient currently intubated mechanically ventilated and sedated. HEENT: No scleral icterus. No conjunctival pallor. Normocephalic, atraumatic. CARDIOVASCULAR: S1 and S2 present. No murmurs, rubs, or gallops. PULMONARY: Diminished breath sounds were bilaterally. ABDOMEN: Soft, nontender, nondistended, normoactive bowel sounds. No palpable organomegaly. Functioning ileostomy. MUSCULOSKELETAL: No joint swelling or deformity. EXTREMITIES: No cyanosis, clubbing, or pedal edema. NEUROLOGICAL: Unable to fully assess the patient has intubated mechanically ventilated and sedated. SKIN: No rashes. Left chest PICC line. Assessment and plan #Acute hypoxic and hypercapnic respiratory failure, requiring mechanical intubation on 02/26/24 #Recent history of recurrent ventilator dependent respiratory failure, secondary to pneumonia and mucous plugging #Cardiogenic shock secondary to sepsis/respiratory failure #Sepsis secondary to above #Leukocytosis -Chest x-ray showing interval worsening of the right lung opacification, possible right lower lobe pneumonia -Possible recurrent mucous plugging absorptive atelectasis -Most recent bronchoscopy with bronchoalveolar lavage on 12/30 and 01/02 which showed MRSA and Klebsiella pneumonia -WBCs 18.9 (02/26/24), labs drawn on 02/26 requiring redraw as result seem to be likely due to air - pending redraw -Tmax 100.5 F -Pending final result of sputum culture -Procalcitonin elevated at 0.63 -Continue on cefepime and vancomycin -Echocardiogram completed on 02/26/24 showed EF 60-65% -Continue cardiac monitoring #Hx of Crohn's disease, with previous complication of bowel perforation s/p colectomy and diverting ileostomy -Has active enterocutaneous fistula -Receiving TPN for nutritional support #Hyperphosphatemia -Labs from 02/26/24 8.1 -Labs drawn today (02/27/24) will require a redraw, as results seem likely due to air -Pending redraw #Hx of previous tracheostomy and reversal, with tracheal stenosis #Hx of tracheobronchomalacia #Hx of DVT, on therapeutic dose of Lovenox #Hx of CVA/TIA, with residual left-sided weakness #Hx right BKA #Hx of cardiac asystole/arrest in 2021 GI prophylaxis: Protonix 40 mg IV daily DVT Prophylaxis: Lovenox 80 mg SQ twice daily Dictation was produced using [email or web address] dictation software. please excuse any grammatical, word or spelling errors. Objective - Vital Signs Vital signs: Vital Signs Temp 99.2 F 02/27/24 04:00 Pulse 67 02/27/24 08:33 Resp 26 H 02/27/24 07:00 BP 121/69 02/27/24 07:00 Pulse Ox 100 02/27/24 07:00 FiO2 50 02/27/24 08:21 Intake & Output 02/26/24 02/27/24 02/27/24 18:59 06:59 18:59 Intake Total 4682.678 9463.476 210.882 Output Total 1570 520 40 Balance -31.928 586.476 170.882 Weight 95.254 kg 97.4 kg Intake: IV 963 636 53 Mvi, Adult No.4 with Vit 210 360 30 K 10 ml Trace (Conc-1Ml/ Dose) 1 ml Sodium Acetate 30 meq Potassium Chloride 20 meq Calcium Gluconate 1 gm In Amino Acids 5 %/Dextrose 20 % 1 ,000 ml @ 30 mls/hr IV . Q24H [facility] Rx#:[id number] NORMAL SALINE PRESSURE 33 36 3 BAG Sodium Chloride 0.9% 1, 220 240 20 000 ml @ 20 mls/hr IV . Q24H [facility] Rx#:[id number] Vancomycin 1,500 mg In 500 Sodium Chloride 0.9% 500 ml 500 ml @ 167 mls/hr IVPB ONCE ONE Rx#: [id number] Intake, IV Titration 575.072 470.476 157.882 Amount Norepinephrine 32 mg In 150.416 27.565 Sodium Chloride 0.9% 218 ml @ 0.03 MCG/KG/MIN 1.34 mls/hr IV .Q24H [facility] Rx#: [id number] propofoL 1,000 mg In 424.656 442.911 157.882 Empty Bag 1 bag @ 15 MCG/ KG/MIN 8.573 mls/hr IV . [id number] [facility] Rx#:[id number] Output: Urine 820 520 40 Stool 750 Other: Voiding Method Indwelling Catheter Indwelling Catheter # Bowel Movements 0 0 ABP, PAP, CO, CI - Last Documented Arterial Blood Pressure 131/53 - Labs CBC & Chem 7: 02/27/24 04:44 02/27/24 08:11 Labs: Abnormal Lab Results - Last 24 Hours (Table) 02/26/24 02/26/24 02/26/24 Range/Units 08:14 11:08 12:04 RBC (4.30-5.90) m/uL Hgb (13.0-17.5) gm/dL Hct (39.0-53.0) % MCHC (31.0-37.0) g/dL RDW (11.5-15.5) % ABG pH (7.35-7.45) ABG pO2 139 H (83-108) mmHg ABG HCO3 (21-25) mmol/L ABG Total CO2 27 H (19-24) mmol/L ABG O2 Saturation >100.0 H (94-97) % Hemoglobin 10.1 L (13.0-17.5) gm/dL Potassium (3.5-5.1) mmol/L Creatinine (0.66-1.25) mg/dL Glucose (74-99) mg/dL POC Glucose (mg/dL) 157 H (70-110) mg/dL Phosphorus (2.5-4.5) mg/dL Triglycerides 311.00 H (0.00-149.00) mg/dL 02/26/24 02/26/24 02/27/24 Range/Units 18:32 23:42 04:44 RBC 3.14 L (4.30-5.90) m/uL Hgb 8.5 L D (13.0-17.5) gm/dL Hct 28.1 L (39.0-53.0) % MCHC 30.2 L (31.0-37.0) g/dL RDW 17.4 H (11.5-15.5) % ABG pH (7.35-7.45) ABG pO2 (83-108) mmHg ABG HCO3 (21-25) mmol/L ABG Total CO2 (19-24) mmol/L ABG O2 Saturation (94-97) % Hemoglobin (13.0-17.5) gm/dL Potassium (3.5-5.1) mmol/L Creatinine (0.66-1.25) mg/dL Glucose (74-99) mg/dL POC Glucose (mg/dL) 231 H 214 H (70-110) mg/dL Phosphorus (2.5-4.5) mg/dL Triglycerides (0.00-149.00) mg/dL 02/27/24 02/27/24 02/27/24 Range/Units 05:36 05:43 08:11 RBC (4.30-5.90) m/uL Hgb (13.0-17.5) gm/dL Hct (39.0-53.0) % MCHC (31.0-37.0) g/dL RDW (11.5-15.5) % ABG pH 7.50 H (7.35-7.45) ABG pO2 120 H (83-108) mmHg ABG HCO3 27 H (21-25) mmol/L ABG Total CO2 28 H (19-24) mmol/L ABG O2 Saturation 100.0 H (94-97) % Hemoglobin 8.4 L (13.0-17.5) gm/dL Potassium 2.8 L (3.5-5.1) mmol/L Creatinine 0.46 L (0.66-1.25) mg/dL Glucose 160 H (74-99) mg/dL POC Glucose (mg/dL) 175 H (70-110) mg/dL Phosphorus 0.9 L* (2.5-4.5) mg/dL Triglycerides (0.00-149.00) mg/dL Microbiology - Last 24 Hours (Table) 02/26/24 03:28 Gram Stain - Preliminary Sputum
[2024-02-27 11:37] LABS: Anisocytosis Slight; Basophils % (A) 0 %; Eosinophils # (A) 0.1 k/uL (0-0.7); Eosinophils % (A) 1 %; HCT 28.2 % (39.0-53.0); HGB 8.6 gm/dL (13.0-17.5); Hypochromasia Marked; Lymphocytes # (A) 1.6 k/uL (1.0-4.8); Lymphocytes % (A) 26 %; MCH 26.5 pg (25.0-35.0); MCHC 30.4 g/dL (31.0-37.0); MCV 87.3 fL (80.0-100.0); Mean Platelet Volume 9.3; Monocytes # (A) 0.3 k/uL (0-1.0); Monocytes % (A) 4 %; Neutrophils # (A) 4.3 k/uL (1.3-7.7); Neutrophils % (A) 66 %; Platelet Count 207 k/uL (150-450); Poikilocytosis Slight; RBC 3.23 m/uL (4.30-5.90); RDW 18.3 % (11.5-15.5); WBC 6.4 k/uL (3.8-10.6)
[2024-02-27 12:02] LABS: ALT 18 U/L (4-49); AST 18 U/L (17-59); African American GFR (CKD) >90 (>60 ml/min/1.73 sqM); Albumin 2.5 g/dL (3.5-5.0); Alkaline Phosphatase 90 U/L (38-126); Anion Gap 2 mmol/L; Blood Urea Nitrogen 17 mg/dL (9-20); Calcium 8.5 mg/dL (8.4-10.2); Carbon Dioxide 25 mmol/L (22-30); Chloride 109 mmol/L (98-107); Glucose 142 mg/dL (74-99); Magnesium 1.6 mg/dL (1.6-2.3); Non-African American GFR(CKD) >90 (>60 ml/min/1.73 sqM); Sodium 136 mmol/L (137-145); Total Bilirubin 0.8 mg/dL (0.2-1.3); Total Protein 6.1 g/dL (6.3-8.2)
[2024-02-27] MEDS: HYDROmorphone 1 MG/ML 1 ML SYRINGE IVP STA (12:20)
[2024-02-27] MEDS ORDERED: Phosphorus Replacement Protoco 1 EACH MISC MISCELLANE PRN (12:26)
[2024-02-27] MEDS ORDERED: Potassium Replacement Protocol 1 EACH MISC MISCELLANE PRN (12:28)
[2024-02-27] MEDS: CEFEPIME 2 GM in SODIUM CHLORIDE 0.9% 100 ML IVPB SCH (12:30)
[2024-02-27] MEDS: POTASSIUM CHLORIDE 20 MEQ in WATER FOR INJECTION 1 100ML.BAG IVPB SCH ×2 (13:04→21:50)
[2024-02-27 13:28] LABS: Glucose,Whole Blood 111 mg/dL (70-110)
[2024-02-27] MEDS: SODIUM PHOSPHATE 30 MMOL in DEXTROSE 5% IN WATER 250 ML IVPB ONE (13:30)
--- NOTE | 2024-02-27 15:21 | P.PN ---
Subjective Progress Note Date: 02/27/24 Principal diagnosis: Reason for follow-up is pneumonia Patient is a 48-year-old male with a past medical history significant for CVA TIA DVT bones disease multiple abdominal surgeries did have a enterocutaneous fistula recent admission for pneumonia has been brought to the hospital with worsening shortness of with hypoxemia patient did have worsening respiratory status requiring intubation and admission to the ICU. On today's evaluation that is 02/27/2024,the patient did have a low-grade fever 100.5 last evening and the patient is afebrile this morning patient is hemodynamic stable requiring less pressor support as reported by nursing staff FiO2 is currently at 50% and no significant purulent secretion through the ED. Patient white count 6.4 creatinine 0.38 sputum is growing Pseudomonas blood culture pending Objective - Vital Signs Vital signs: Vital Signs Temp 99.2 F 02/27/24 04:00 Pulse 82 02/27/24 11:48 Resp 26 H 02/27/24 07:00 BP 121/69 02/27/24 07:00 Pulse Ox 100 02/27/24 07:00 FiO2 50 02/27/24 11:33 Intake & Output 02/26/24 02/27/24 02/27/24 18:59 06:59 18:59 Intake Total 8303.688 7728.476 1049.986 Output Total 1570 520 40 Balance -31.928 473.110 7562.986 Weight 95.254 kg 97.4 kg Intake: IV 963 636 53 Mvi, Adult No.4 with Vit 210 360 30 K 10 ml Trace (Conc-1Ml/ Dose) 1 ml Sodium Acetate 30 meq Potassium Chloride 20 meq Calcium Gluconate 1 gm In Amino Acids 5 %/Dextrose 20 % 1 ,000 ml @ 30 mls/hr IV . Q24H [facility] Rx#:[id number] NORMAL SALINE PRESSURE 33 36 3 BAG Sodium Chloride 0.9% 1, 220 240 20 000 ml @ 20 mls/hr IV . Q24H [facility] Rx#:[id number] Vancomycin 1,500 mg In 500 Sodium Chloride 0.9% 500 ml 500 ml @ 167 mls/hr IVPB ONCE ONE Rx#: [id number] Intake, IV Titration 575.072 470.476 996.986 Amount Mvi, Adult No.4 with Vit 703.5 K 10 ml Trace (Conc-1Ml/ Dose) 1 ml Sodium Acetate 30 meq Potassium Chloride 20 meq Calcium Gluconate 1 gm In Amino Acids 5 %/Dextrose 20 % 1 ,000 ml @ 30 mls/hr IV . Q24H [facility] Rx#:[id number] Norepinephrine 32 mg In 150.416 27.565 Sodium Chloride 0.9% 218 ml @ 0.03 MCG/KG/MIN 1.34 mls/hr IV .Q24H [facility] Rx#: [id number] Norepinephrine 32 mg In 7.084 Sodium Chloride 0.9% 218 ml @ 0.08 MCG/KG/MIN 3. 653 mls/hr IV .Q24H [facility] Rx#:[id number] Vasopressin 60 unit In 128.52 Sodium Chloride 0.9% 150 ml @ 0.03 UNITS/MIN 4.59 mls/hr IV .Q24H [facility] Rx#: [id number] propofoL 1,000 mg In 424.656 442.911 157.882 Empty Bag 1 bag @ 15 MCG/ KG/MIN 8.573 mls/hr IV . [id number] [facility] Rx#:[id number] Output: Urine 820 520 40 Stool 750 Other: Voiding Method Indwelling Catheter Indwelling Catheter # Bowel Movements 0 0 ABP, PAP, CO, CI - Last Documented Arterial Blood Pressure 131/53 - Exam GENERAL DESCRIPTION: Middle-age man intubated on the vent RESPIRATORY SYSTEM: Unlabored breathing , decreased breath sounds at bases HEART: S1 S2 regular rate and rhythm , ABDOMEN: Soft , no tenderness EXTREMITIES: No edema feet - Labs CBC & Chem 7: 02/27/24 10:56 02/27/24 10:56 Labs: Abnormal Lab Results - Last 24 Hours (Table) 02/26/24 02/26/24 02/26/24 Range/Units 08:14 18:32 23:42 RBC (4.30-5.90) m/uL Hgb (13.0-17.5) gm/dL Hct (39.0-53.0) % MCHC (31.0-37.0) g/dL RDW (11.5-15.5) % ABG pH (7.35-7.45) ABG pO2 (83-108) mmHg ABG HCO3 (21-25) mmol/L ABG Total CO2 (19-24) mmol/L ABG O2 Saturation (94-97) % Hemoglobin (13.0-17.5) gm/dL Sodium (137-145) mmol/L Potassium (3.5-5.1) mmol/L Chloride (98-107) mmol/L Creatinine (0.66-1.25) mg/dL Glucose (74-99) mg/dL POC Glucose (mg/dL) 231 H 214 H (70-110) mg/dL Phosphorus (2.5-4.5) mg/dL Total Protein (6.3-8.2) g/dL Albumin (3.5-5.0) g/dL Triglycerides 311.00 H (0.00-149.00) mg/dL 02/27/24 02/27/24 02/27/24 Range/Units 04:44 05:36 05:43 RBC 3.14 L (4.30-5.90) m/uL Hgb 8.5 L D (13.0-17.5) gm/dL Hct 28.1 L (39.0-53.0) % MCHC 30.2 L (31.0-37.0) g/dL RDW 17.4 H (11.5-15.5) % ABG pH 7.50 H (7.35-7.45) ABG pO2 120 H (83-108) mmHg ABG HCO3 27 H (21-25) mmol/L ABG Total CO2 28 H (19-24) mmol/L ABG O2 Saturation 100.0 H (94-97) % Hemoglobin 8.4 L (13.0-17.5) gm/dL Sodium (137-145) mmol/L Potassium (3.5-5.1) mmol/L Chloride (98-107) mmol/L Creatinine (0.66-1.25) mg/dL Glucose (74-99) mg/dL POC Glucose (mg/dL) 175 H (70-110) mg/dL Phosphorus (2.5-4.5) mg/dL Total Protein (6.3-8.2) g/dL Albumin (3.5-5.0) g/dL Triglycerides (0.00-149.00) mg/dL 02/27/24 02/27/24 02/27/24 Range/Units 08:11 10:56 10:56 RBC 3.23 L (4.30-5.90) m/uL Hgb 8.6 L (13.0-17.5) gm/dL Hct 28.2 L (39.0-53.0) % MCHC 30.4 L (31.0-37.0) g/dL RDW 18.3 H (11.5-15.5) % ABG pH (7.35-7.45) ABG pO2 (83-108) mmHg ABG HCO3 (21-25) mmol/L ABG Total CO2 (19-24) mmol/L ABG O2 Saturation (94-97) % Hemoglobin (13.0-17.5) gm/dL Sodium 136 L (137-145) mmol/L Potassium 2.8 L 3.0 L (3.5-5.1) mmol/L Chloride 109 H (98-107) mmol/L Creatinine 0.46 L 0.38 L (0.66-1.25) mg/dL Glucose 160 H 142 H (74-99) mg/dL POC Glucose (mg/dL) (70-110) mg/dL Phosphorus 0.9 L* 1.0 L* (2.5-4.5) mg/dL Total Protein 6.1 L (6.3-8.2) g/dL Albumin 2.5 L (3.5-5.0) g/dL Triglycerides (0.00-149.00) mg/dL Microbiology - Last 24 Hours (Table) 02/26/24 03:28 Gram Stain - Preliminary Sputum Assessment and Plan (1) Pneumonia Current Visit: No Status: Acute Code(s): J18.9 - PNEUMONIA, UNSPECIFIED ORGANISM SNOMED Code(s): 190235267 (2) Sepsis Current Visit: No Status: Acute Code(s): A41.9 - SEPSIS, UNSPECIFIED ORGANISM SNOMED Code(s): 92199798 Plan: 1patient presented to hospital with sepsis in this patient who did have a low- grade fever elevated white count tachycardia meeting criteria for SIRS source likely pneumonia at this patient presenting with increasing shortness of breath cough with evidence of right-sided infiltrate, patient has been admitted to the hospital and will need to cover for resistant gram-positive as well as gram- negative 2-sputum currently growing Pseudomonas blood culture currently pending 3patient currently being treated with vancomycin and cefepime while waiting for the culture to finalize. Mother at the bedside questions answered Dictation was produced using [employer] dictation software. please excuse any grammatical, word or spelling errors. Time with Patient: Less than 30
--- NOTE | 2024-02-27 15:47 | P.PN ---
Subjective Progress Note Date: 02/27/24 The patient is a 48-year-old male who presented to the emergency room with increased shortness of breath. Patient has a known history of pneumonia and being ventilator dependent. He was subsequently intubated and cardiology has been consulted for hypoxia. Follow-up echocardiogram shows preserved LV func tion with no valvular abnormalities. Telemetry monitoring has shown no sustained arrhythmia. GENERAL: Ill-appearing, well-nourished and in no acute distress. Sedated on ventilator. NECK: Supple without JVD or thyromegaly. LUNGS: Breath sounds coarse to auscultation bilaterally. Respiration equal and unlabored. Bilateral rhonchi. HEART: Regular rate and rhythm without murmurs, rubs or gallops. S1 and S2 heard. EXTREMITIES: Normal range of motion, no edema. No clubbing or cyanosis. Peripheral pulses intact and strong. TELEMETRY: Sinus rhythm overnight IMPRESSION: Acute hypoxic respiratory failure Pneumonia Cardiogenic shock, secondary to sepsis/respiratory failure History of CVA/TIA History of right below the knee amputation History of cardiac arrest/asystole in 2021 History of SVT PLAN: Continue telemetry monitoring for arrhythmia with history of SVT Continue supportive treatment for pneumonia/respiratory failure No further recommendations from the cardiac standpoint I am dictating on behalf of Dr Lawson Resendez's history/physical and assessment/plan. Objective - Vital Signs Vital signs: Vital Signs Temp 99.2 F 02/27/24 04:00 Pulse 75 02/27/24 15:31 Resp 26 H 02/27/24 07:00 BP 121/69 02/27/24 07:00 Pulse Ox 100 02/27/24 07:00 FiO2 50 02/27/24 15:31 Intake & Output 02/26/24 02/27/24 02/27/24 18:59 06:59 18:59 Intake Total 8123.941 4543.476 1237.748 Output Total 1570 520 40 Balance -31.928 014.662 9842.748 Weight 95.254 kg 97.4 kg 97.4 kg Intake: IV 963 636 53 Mvi, Adult No.4 with Vit 210 360 30 K 10 ml Trace (Conc-1Ml/ Dose) 1 ml Sodium Acetate 30 meq Potassium Chloride 20 meq Calcium Gluconate 1 gm In Amino Acids 5 %/Dextrose 20 % 1 ,000 ml @ 30 mls/hr IV . Q24H [facility] Rx#:[id number] NORMAL SALINE PRESSURE 33 36 3 BAG Sodium Chloride 0.9% 1, 220 240 20 000 ml @ 20 mls/hr IV . Q24H [facility] Rx#:[id number] Vancomycin 1,500 mg In 500 Sodium Chloride 0.9% 500 ml 500 ml @ 167 mls/hr IVPB ONCE ONE Rx#: [id number] Intake, IV Titration 575.072 473.563 2643.748 Amount Mvi, Adult No.4 with Vit 703.5 K 10 ml Trace (Conc-1Ml/ Dose) 1 ml Sodium Acetate 30 meq Potassium Chloride 20 meq Calcium Gluconate 1 gm In Amino Acids 5 %/Dextrose 20 % 1 ,000 ml @ 30 mls/hr IV . Q24H [facility] Rx#:[id number] Norepinephrine 32 mg In 150.416 27.565 Sodium Chloride 0.9% 218 ml @ 0.03 MCG/KG/MIN 1.34 mls/hr IV .Q24H [facility] Rx#: [id number] Norepinephrine 32 mg In 10.531 Sodium Chloride 0.9% 218 ml @ 0.08 MCG/KG/MIN 3. 653 mls/hr IV .Q24H [facility] Rx#:[id number] Vasopressin 60 unit In 128.52 Sodium Chloride 0.9% 150 ml @ 0.03 UNITS/MIN 4.59 mls/hr IV .Q24H [facility] Rx#: [id number] propofoL 1,000 mg In 424.656 442.911 342.197 Empty Bag 1 bag @ 15 MCG/ KG/MIN 8.573 mls/hr IV . [id number] [facility] Rx#:[id number] Output: Urine 820 520 40 Stool 750 Other: Voiding Method Indwelling Catheter Indwelling Catheter # Bowel Movements 0 0 ABP, PAP, CO, CI - Last Documented Arterial Blood Pressure 131/53 - Labs CBC & Chem 7: 02/27/24 10:56 02/27/24 10:56 Labs: Abnormal Lab Results - Last 24 Hours (Table) 02/26/24 02/26/24 02/26/24 Range/Units 08:14 18:32 23:42 RBC (4.30-5.90) m/uL Hgb (13.0-17.5) gm/dL Hct (39.0-53.0) % MCHC (31.0-37.0) g/dL RDW (11.5-15.5) % ABG pH (7.35-7.45) ABG pO2 (83-108) mmHg ABG HCO3 (21-25) mmol/L ABG Total CO2 (19-24) mmol/L ABG O2 Saturation (94-97) % Hemoglobin (13.0-17.5) gm/dL Sodium (137-145) mmol/L Potassium (3.5-5.1) mmol/L Chloride (98-107) mmol/L Creatinine (0.66-1.25) mg/dL Glucose (74-99) mg/dL POC Glucose (mg/dL) 231 H 214 H (70-110) mg/dL Phosphorus (2.5-4.5) mg/dL Total Protein (6.3-8.2) g/dL Albumin (3.5-5.0) g/dL Triglycerides 311.00 H (0.00-149.00) mg/dL 02/27/24 02/27/24 02/27/24 Range/Units 04:44 05:36 05:43 RBC 3.14 L (4.30-5.90) m/uL Hgb 8.5 L D (13.0-17.5) gm/dL Hct 28.1 L (39.0-53.0) % MCHC 30.2 L (31.0-37.0) g/dL RDW 17.4 H (11.5-15.5) % ABG pH 7.50 H (7.35-7.45) ABG pO2 120 H (83-108) mmHg ABG HCO3 27 H (21-25) mmol/L ABG Total CO2 28 H (19-24) mmol/L ABG O2 Saturation 100.0 H (94-97) % Hemoglobin 8.4 L (13.0-17.5) gm/dL Sodium (137-145) mmol/L Potassium (3.5-5.1) mmol/L Chloride (98-107) mmol/L Creatinine (0.66-1.25) mg/dL Glucose (74-99) mg/dL POC Glucose (mg/dL) 175 H (70-110) mg/dL Phosphorus (2.5-4.5) mg/dL Total Protein (6.3-8.2) g/dL Albumin (3.5-5.0) g/dL Triglycerides (0.00-149.00) mg/dL 02/27/24 02/27/24 02/27/24 Range/Units 08:11 10:56 10:56 RBC 3.23 L (4.30-5.90) m/uL Hgb 8.6 L (13.0-17.5) gm/dL Hct 28.2 L (39.0-53.0) % MCHC 30.4 L (31.0-37.0) g/dL RDW 18.3 H (11.5-15.5) % ABG pH (7.35-7.45) ABG pO2 (83-108) mmHg ABG HCO3 (21-25) mmol/L ABG Total CO2 (19-24) mmol/L ABG O2 Saturation (94-97) % Hemoglobin (13.0-17.5) gm/dL Sodium 136 L (137-145) mmol/L Potassium 2.8 L 3.0 L (3.5-5.1) mmol/L Chloride 109 H (98-107) mmol/L Creatinine 0.46 L 0.38 L (0.66-1.25) mg/dL Glucose 160 H 142 H (74-99) mg/dL POC Glucose (mg/dL) (70-110) mg/dL Phosphorus 0.9 L* 1.0 L* (2.5-4.5) mg/dL Total Protein 6.1 L (6.3-8.2) g/dL Albumin 2.5 L (3.5-5.0) g/dL Triglycerides (0.00-149.00) mg/dL 02/27/24 Range/Units 13:27 RBC (4.30-5.90) m/uL Hgb (13.0-17.5) gm/dL Hct (39.0-53.0) % MCHC (31.0-37.0) g/dL RDW (11.5-15.5) % ABG pH (7.35-7.45) ABG pO2 (83-108) mmHg ABG HCO3 (21-25) mmol/L ABG Total CO2 (19-24) mmol/L ABG O2 Saturation (94-97) % Hemoglobin (13.0-17.5) gm/dL Sodium (137-145) mmol/L Potassium (3.5-5.1) mmol/L Chloride (98-107) mmol/L Creatinine (0.66-1.25) mg/dL Glucose (74-99) mg/dL POC Glucose (mg/dL) 111 H (70-110) mg/dL Phosphorus (2.5-4.5) mg/dL Total Protein (6.3-8.2) g/dL Albumin (3.5-5.0) g/dL Triglycerides (0.00-149.00) mg/dL Microbiology - Last 24 Hours (Table) 02/26/24 03:28 Gram Stain - Preliminary Sputum Sputum Culture - Preliminary Pseudomonas aeruginosa 02/26/24 04:50 Blood Culture - Preliminary Blood 02/26/24 04:30 Blood Culture - Preliminary Blood
--- NOTE | 2024-02-27 17:03 | P.PN ---
Subjective Progress Note Date: 02/27/24 This is a 48-year-old male who presented to the emergency department with increased shortness of breath and hypoxia with concerns of possible pneumonia. Patient was placed on nonrebreather and ultimately required BiPAP as patient chronically wears oxygen outpatient and became more obtunded and unresponsive requiring mechanical ventilation and was admitted to the ICU with hypoxia and concerns for pneumonia. Patient follows with Dr. Ivey in the outpatient setting with a significant past medical history of CVA, DVT, Crohn's, previous MRSA infections, right BKA and multiple hospitalizations. Patient is maintained on TPN outpatient for his chronic malnutrition secondary to Crohn's and was most recently hospitalized earlier this year requiring ICU admission and mechanical ventilation with continuous mucous plugging requiring multiple bronchoscopies. Blood pressures are also low requiring pressor support. Antibiotics were started with concerns of pneumonia. Procalcitonin ordered. Recommend infectious disease evaluation and appreciate input and recommendations as well. 02/27/2024 Patient is seen and evaluated in follow-up continues in the ICU on mechanical ventilation with no attempts at weaning today. Patient is off vasopressin although still requiring Levophed for extremely low blood pressures. Hemoglobin is stable above 8.6 and patient remains afebrile with no white count. Sodium is 136 with a potassium of 3.0, 0.38 creatinine and blood sugars being controlled. Phosphorus low on redraw at 1.0 along with magnesium being 1.6. Will replace phosphorus and potassium per protocol and also continue with TPN. Pharmacy and dietary to make adjustments on TPN and electrolytes. Preliminary Gram stain sputum culture showing Pseudomonas aeruginosa and blood cultures thus far have been negative. Chest x-ray today shows improving right perihilar and lower lobe infiltrate. Infectious disease following as well and patient is continued on cefepime along with vancomycin. REVIEW OF SYSTEMS: Unable to completely assess as patient is on mechanical ventilation and sedated The rest of the 14-point review of systems is negative. PHYSICAL EXAMINATION: GENERAL: The patient is currently on mechanical ventilation with an FiO2 of 50%, PEEP is 5. Well developed, appears older than stated age, ill-appearing, obese HEENT: Pupils are round and equally reacting to light. EOMI. No scleral icterus. No conjunctival pallor. Normocephalic, atraumatic. No pharyngeal erythema. No thyromegaly. CARDIOVASCULAR: S1 and S2 muffled, PULMONARY: Diminished breath sounds bilaterally with ventilator assist breathing, some bronchial congestion noted ABDOMEN: Soft, nontender, nondistended, normoactive bowel sounds. No palpable organomegaly. Ostomy noted MUSCULOSKELETAL: No joint swelling or deformity. EXTREMITIES: No cyanosis, clubbing, or pedal edema. Right BKA noted, diffusely weak currently on sedation NEUROLOGICAL: Gross neurological examination did not reveal any focal deficits. Unable to completely assess as patient is sedated SKIN: No rashes. Assessment: Shortness of breath, acute hypoxic respiratory failure requiring mechanical ventilation, likely secondary to recurrent mucous plugging with concerns of possible right lower lobe pneumonia Possible right lower lobe pneumonia, present on admission versus recurrent mucous plugging with atelectasis, procalcitonin is 0.63 Electrolyte abnormalities including low phosphorus and low potassium, being replaced per protocol Sepsis, present on admission secondary to above History of tracheobronchomalacia History of anemia History of CVA History of DVT and right BKA History of Crohn's disease with previous bowel perforation with colectomy and end ileostomy with chronic wounds with enterocutaneous fistulas Severe protein calorie malnutrition secondary to Crohn's and maintained on TPN outpatient History of previous tracheostomy with tracheal stenosis History of previous cardiac arrest in 2021 History of MRSA previously Former smoker Obesity with a BMI of 30.8 GI prophylaxis DVT prophylaxis Full code Plan: Patient continues in the ICU on mechanical ventilation and being weaned with no plans of extubation at this time, FiO2 has been reduced to 50% with a PEEP of 5 Patient continues in the ICU with pulmonary fusion analyst following. Antibiotics have been started with concerns of pneumonia and procalcitonin is mildly elevated at 0.63. Infectious disease following and patient is continued on cefepime and vancomycin Recommend frequent suctioning per pulmonary fusion analyst and monitor respiratory status closely for any further mucous plugging. Patient was recently hospitalized in the ICU for quite some time and underwent multiple bronchoscopies Continue local wound care and also consult ostomy nurse Follow-up on repeat labs and replace electrolytes per protocol Cardiology following with no acute changes in medications recommend to continue with telemetry monitoring Continue dietary and pharmacy to adjust TPN Due to multiple complex medical issues, overall prognosis is guarded CODE STATUS was addressed once again with family and they are adamant patient remains full code The impression and plan of care has been dictated by Alyssa Hernandez, Nurse Practitioner as directed. Dr. Mo MD I have performed a history and examination and MDM of this patient, discussed the same with the dictator, and agree with the dictator's assessment and plan as written ,documented as a scribe. Based on total visit time, I have performed more than 50% of the visit. Objective - Vital Signs Vital signs: Vital Signs Temp 99.2 F 02/27/24 04:00 Pulse 67 02/27/24 08:33 Resp 26 H 02/27/24 07:00 BP 121/69 02/27/24 07:00 Pulse Ox 100 02/27/24 07:00 FiO2 50 02/27/24 08:21 Intake & Output 02/26/24 02/27/24 02/27/24 18:59 06:59 18:59 Intake Total 7339.941 0889.476 121.582 Output Total 1570 520 40 Balance -31.928 586.476 81.582 Weight 95.254 kg 97.4 kg Intake: IV 963 636 53 Mvi, Adult No.4 with Vit 210 360 30 K 10 ml Trace (Conc-1Ml/ Dose) 1 ml Sodium Acetate 30 meq Potassium Chloride 20 meq Calcium Gluconate 1 gm In Amino Acids 5 %/Dextrose 20 % 1 ,000 ml @ 30 mls/hr IV . Q24H [facility] Rx#:[id number] NORMAL SALINE PRESSURE 33 36 3 BAG Sodium Chloride 0.9% 1, 220 240 20 000 ml @ 20 mls/hr IV . Q24H [facility] Rx#:[id number] Vancomycin 1,500 mg In 500 Sodium Chloride 0.9% 500 ml 500 ml @ 167 mls/hr IVPB ONCE ONE Rx#: [id number] Intake, IV Titration 575.072 470.476 68.582 Amount Norepinephrine 32 mg In 150.416 27.565 Sodium Chloride 0.9% 218 ml @ 0.03 MCG/KG/MIN 1.34 mls/hr IV .Q24H [facility] Rx#: [id number] propofoL 1,000 mg In 424.656 442.911 68.582 Empty Bag 1 bag @ 15 MCG/ KG/MIN 8.573 mls/hr IV . [id number] [facility] Rx#:[id number] Output: Urine 820 520 40 Stool 750 Other: Voiding Method Indwelling Catheter Indwelling Catheter # Bowel Movements 0 0 ABP, PAP, CO, CI - Last Documented Arterial Blood Pressure 131/53 - Labs CBC & Chem 7: 02/27/24 10:56 02/27/24 10:56 Labs: Abnormal Lab Results - Last 24 Hours (Table) 02/26/24 02/26/24 02/26/24 Range/Units 04:30 08:14 11:08 RBC (4.30-5.90) m/uL Hgb (13.0-17.5) gm/dL Hct (39.0-53.0) % MCHC (31.0-37.0) g/dL RDW (11.5-15.5) % ABG pH (7.35-7.45) ABG pO2 139 H (83-108) mmHg ABG HCO3 (21-25) mmol/L ABG Total CO2 27 H (19-24) mmol/L ABG O2 Saturation >100.0 H (94-97) % Hemoglobin 10.1 L (13.0-17.5) gm/dL Potassium (3.5-5.1) mmol/L Creatinine (0.66-1.25) mg/dL Glucose (74-99) mg/dL POC Glucose (mg/dL) (70-110) mg/dL Phosphorus (2.5-4.5) mg/dL Triglycerides 311.00 H (0.00-149.00) mg/dL Procalcitonin 0.63 H (0.02-0.50) ng/mL 02/26/24 02/26/24 02/26/24 Range/Units 12:04 18:32 23:42 RBC (4.30-5.90) m/uL Hgb (13.0-17.5) gm/dL Hct (39.0-53.0) % MCHC (31.0-37.0) g/dL RDW (11.5-15.5) % ABG pH (7.35-7.45) ABG pO2 (83-108) mmHg ABG HCO3 (21-25) mmol/L ABG Total CO2 (19-24) mmol/L ABG O2 Saturation (94-97) % Hemoglobin (13.0-17.5) gm/dL Potassium (3.5-5.1) mmol/L Creatinine (0.66-1.25) mg/dL Glucose (74-99) mg/dL POC Glucose (mg/dL) 157 H 231 H 214 H (70-110) mg/dL Phosphorus (2.5-4.5) mg/dL Triglycerides (0.00-149.00) mg/dL Procalcitonin (0.02-0.50) ng/mL 02/27/24 02/27/24 02/27/24 Range/Units 04:44 05:36 05:43 RBC 3.14 L (4.30-5.90) m/uL Hgb 8.5 L D (13.0-17.5) gm/dL Hct 28.1 L (39.0-53.0) % MCHC 30.2 L (31.0-37.0) g/dL RDW 17.4 H (11.5-15.5) % ABG pH 7.50 H (7.35-7.45) ABG pO2 120 H (83-108) mmHg ABG HCO3 27 H (21-25) mmol/L ABG Total CO2 28 H (19-24) mmol/L ABG O2 Saturation 100.0 H (94-97) % Hemoglobin 8.4 L (13.0-17.5) gm/dL Potassium (3.5-5.1) mmol/L Creatinine (0.66-1.25) mg/dL Glucose (74-99) mg/dL POC Glucose (mg/dL) 175 H (70-110) mg/dL Phosphorus (2.5-4.5) mg/dL Triglycerides (0.00-149.00) mg/dL Procalcitonin (0.02-0.50) ng/mL 02/27/24 Range/Units 08:11 RBC (4.30-5.90) m/uL Hgb (13.0-17.5) gm/dL Hct (39.0-53.0) % MCHC (31.0-37.0) g/dL RDW (11.5-15.5) % ABG pH (7.35-7.45) ABG pO2 (83-108) mmHg ABG HCO3 (21-25) mmol/L ABG Total CO2 (19-24) mmol/L ABG O2 Saturation (94-97) % Hemoglobin (13.0-17.5) gm/dL Potassium 2.8 L (3.5-5.1) mmol/L Creatinine 0.46 L (0.66-1.25) mg/dL Glucose 160 H (74-99) mg/dL POC Glucose (mg/dL) (70-110) mg/dL Phosphorus 0.9 L* (2.5-4.5) mg/dL Triglycerides (0.00-149.00) mg/dL Procalcitonin (0.02-0.50) ng/mL Microbiology - Last 24 Hours (Table) 02/26/24 03:28 Gram Stain - Preliminary Sputum
[2024-02-27 18:02] LABS: Glucose,Whole Blood 112 mg/dL (70-110)
--- NOTE | 2024-02-27 19:13 | PCN ---
PROCEDURE NOTE PROCEDURE: Right femoral triple-lumen catheter. PREOPERATIVE DIAGNOSIS: Administration of fluids and pressors. POSTOPERATIVE DIAGNOSIS: Administration of fluids and pressors. There was informed consent and universal timeout. The patient's procedure took place in room #261. FIRST GARBAGE WORKER: Dr. Danika Arenas. TRIPLE LUMEN CATHETER PLACEMENT: Indication: Hemodynamic monitoring/Intravenous access. A time-out was completed verifying correct patient, procedure, site, positioning, and implant(s) or special equipment if applicable. The patient was placed in a dependent position appropriate for triple lumen catheter placement based on the vein to be cannulated. The patient's right groin was prepped and draped in sterile fashion. 1% Lidocaine was used to anesthetize the surrounding skin area. A triple lumen 9F Cordis catheter was introduced into the right common femoral vein using Seldinger technique. The catheter was threaded smoothly over the guide wire and appropriate blood return was obtained. Each lumen of the catheter was evacuated of air and flushed with sterile saline. The catheter was then sutured in place to the skin and a sterile dressing applied. Perfusion to the extremity distal to the point of catheter insertion was checked and found to be adequate. There was no immediate complication. There was good blood return from all 3 ports. The catheter was sutured in place. Sterile dressing was applied by the nurse. There was no need for a chest x-ray. The patient tolerated procedure well without difficulty. MMODL / IJN: [id number] /
[2024-02-27 20:21] LABS: Anisocytosis Slight; HCT 26.6 % (39.0-53.0); HGB 8.2 gm/dL (13.0-17.5); Hypochromasia Marked; MCH 26.8 pg (25.0-35.0); MCHC 30.8 g/dL (31.0-37.0); MCV 87.2 fL (80.0-100.0); Mean Platelet Volume 10.8; Platelet Count 212 k/uL (150-450); Poikilocytosis Slight; RBC 3.05 m/uL (4.30-5.90); RDW 18.3 % (11.5-15.5); WBC 5.5 k/uL (3.8-10.6)
[2024-02-27 20:40] LABS: African American GFR (CKD) >90 (>60 ml/min/1.73 sqM); Anion Gap 3 mmol/L; Blood Urea Nitrogen 12 mg/dL (9-20); Calcium 8.4 mg/dL (8.4-10.2); Carbon Dioxide 24 mmol/L (22-30); Chloride 114 mmol/L (98-107); Glucose 95 mg/dL (74-99); Non-African American GFR(CKD) >90 (>60 ml/min/1.73 sqM); Phosphorus 2.2 mg/dL (2.5-4.5); Potassium 2.9 mmol/L (3.5-5.1); Sodium 141 mmol/L (137-145)
[2024-02-27 21:51] LABS: Magnesium 1.5 mg/dL (1.6-2.3)
[2024-02-27] MEDS ORDERED: MAGNESIUM SULFATE-D5W PMX 1 GM in DEXTROSE/WATER 1 100ML.BAG IVPB SCH (22:15)
[2024-02-27] MEDS: MAGNESIUM SULFATE-D5W PMX 1 GM in DEXTROSE/WATER 1 100ML.BAG IVPB SCH (22:21)
[2024-02-27] MEDS: SODIUM PHOSPHATE 15 MMOL in DEXTROSE 5% IN WATER 250 ML IVPB ONE (22:21)
[2024-02-27 23:56] LABS: Glucose,Whole Blood 118 mg/dL (70-110)
[2024-02-28] MEDS: HYDROmorphone 1 MG/ML 1 ML SYRINGE IVP PRN (00:24)
[2024-02-28 05:39] LABS: Glucose,Whole Blood 105 mg/dL (70-110)
[2024-02-28 05:52] LABS: Anisocytosis Slight; HCT 27.3 % (39.0-53.0); HGB 8.2 gm/dL (13.0-17.5); Hypochromasia Marked; MCH 26.3 pg (25.0-35.0); MCHC 29.8 g/dL (31.0-37.0); MCV 88.3 fL (80.0-100.0); Mean Platelet Volume 9.3; Platelet Count 220 k/uL (150-450); RBC 3.09 m/uL (4.30-5.90); RDW 18.2 % (11.5-15.5); WBC 5.2 k/uL (3.8-10.6)
[2024-02-28 06:04] LABS: African American GFR (CKD) >90 (>60 ml/min/1.73 sqM); Anion Gap 2 mmol/L; Blood Urea Nitrogen 10 mg/dL (9-20); Calcium 8.2 mg/dL (8.4-10.2); Carbon Dioxide 23 mmol/L (22-30); Chloride 114 mmol/L (98-107); Glucose 104 mg/dL (74-99); Non-African American GFR(CKD) >90 (>60 ml/min/1.73 sqM); Potassium 3.8 mmol/L (3.5-5.1); Sodium 139 mmol/L (137-145)
[2024-02-28 06:15] LABS: ABG Base Excess 0.9 mmol/L; ABG HCO3 25 mmol/L (21-25); ABG Oxygen Saturation >100.0 % (94-97); ABG PCO2 37 mmHg (35-45); ABG PH 7.44 (7.35-7.45); ABG PO2 255 mmHg (83-108); ABG TCO2 26 mmol/L (19-24); Allen Test Performed? Yes
[2024-02-28] MEDS: POTASSIUM CHLORIDE 10 MEQ in WATER FOR INJECTION 1 100ML.BAG IVPB SCH (06:21)
--- NOTE | 2024-02-28 06:39 | XR ---
EXAMINATION TYPE: XR chest 1V DATE OF EXAM: 02/28/2024 5:15 AM COMPARISON: 02/27/2024 CLINICAL INDICATION: Male, 48 years old with history of intubated/ tube placement, TECHNIQUE: XR chest 1V view(s) obtained. FINDINGS: The heart size is normal. The pulmonary vasculature is normal. Mild worsening right lower lobe infiltrate is present. Correlate for atelectasis or pneumonia. Endotracheal tube tip is 5 cm above the avery. Nasogastric tube transverses the thorax. Left central venous catheter tip is in the proximal right atrium region. IMPRESSION: 1. Mild worsening right lower lobe infiltrate. Correlate for atelectasis or pneumonia. 2. Lines and catheters discussed above [facility], , 02/28/2024 6:37 AM
[2024-02-28 06:45] LABS: Phosphorus 2.6 mg/dL (2.5-4.5)
[2024-02-28] MEDS: CISATRACURIUM 2 MG/ML 5 ML VIAL IV ONE ×2 (09:37→09:50)
--- NOTE | 2024-02-28 10:37 | XR ---
EXAMINATION TYPE: XR chest 1V portable DATE OF EXAM: 02/28/2024 10:17 AM COMPARISON: 02/28/2024 CLINICAL INDICATION: Male, 48 years old with history of ET tube exchange, OG placement, TECHNIQUE: XR chest 1V portable view(s) obtained. FINDINGS: The heart size is normal. The pulmonary vasculature is normal. Mild right posterior medial lower lobe filtrate remains present. Small left pleural effusion is likel y present. Endotracheal tube placement currently has the tip of the ET tube 5 cm above the avery. Nasogastric t ube is present with the tip within the left upper quadrant of the abdomen. Left central venous cathet er tip is in the proximal right atrium region IMPRESSION: 1. Right lower lobe infiltrate. 2. Lines and catheters discussed above [facility], , 02/28/2024 10:35 AM
--- NOTE | 2024-02-28 10:50 | PCN ---
PROCEDURE NOTE PROCEDURE: Re-intubation of the patient with a defect of cuff on the endotracheal tube. PREOPERATIVE DIAGNOSIS: Respiratory failure. POSTOPERATIVE DIAGNOSIS: Respiratory failure. OPERATORS: Dr. Munoz, Dr. Arenas, Dr. Christy. The patient's procedure took place in room 261. The previous endotracheal tube was removed over the stylet. A #8 endotracheal tube was placed over the stylet. The balloon was inflated. There was good return of tidal volumes. The patient tolerated the procedure well. There was no immediate complication. The tube was inserted to 26 cm, which is where the old tube was. We can use the stylet, change endotracheal tube. Again, there was no immediate complication. The patient tolerated the procedure well. The new tube will be secured. There was no immediate complication. The patient tolerated the procedure well. MMODL / IJN: [id number] /
--- NOTE | 2024-02-28 11:03 | P.PN ---
Subjective Progress Note Date: 02/28/24 history of present illness - Patient is a 48-year-old male with complex past medical history including CVA, previous DVTs, right BKA, cardiac arrest in 2021, Crohn's disease, enterocutaneous fistulas, previous bowel resection, ventilator dependent respiratory failure, previous tracheostomy and reversal. Recently was admitted 12/13/2023 through 12/25/2023 for pneumonia and respiratory failure due to mucous plugging. He was intubated and placed on mechanical ventilator for approximately 6 days. He did have a bronchoscopy with BAL, microbiology positive for haemophilus influenza. Eventually, discharged home, and returned 01/02/24 for GIB from his ostomy. Was reintubated and did spend some time on the ventilator for reccurent pneumonia and mucous plugging. During this time, had multiple bronchoscopies with BAL, once on 12/31/2023 and again on 01/03/2024, isolated organisms including MRSA and Pseudomonas. Patient was eventually discharged back home on 01/16/2024. More recently, patient had an ER visit for increased work of breathing on February 22, and the patient was sent home. Returned for similar symptoms yesterday afternoon. Chest x-ray done on admission showing cardiomegaly with pulmonary vascular congestion and questionable right lower lobe infiltrate or effusion. CBC: WBC count 11.2, hemoglobin 10.5, hematocrit 37.3, platelets 315. CMP: Sodium 138, potassium 4.8, chloride 97, serum bicarb 39, BUN 23, creatinine 0.45, glucose 103. Lactic 1. LFTs unremarkable. Troponin less than 0.012. I am evaluating this patient emergency department, he is currently unresponsive, to even painful stimuli. He is on a 15 L nonrebreather. SpO2 88%. Diminished breath sounds on the right Will place this patient on BiPAP with initial settings 16/5 FiO2 to be titrated accordingly. Will get a stat ABG. We will repeat chest x-ray. I did talk to the patient's son, Alan, he is adamant that the patient remain a full code, would want the patient intubated if necessary. On reassessment in the emergency department, patient remained on BiPAP with settings 16/5 100%. He remains unresponsive to painful stimuli. Now only achieving tidal volumes ranging from 100 to 200 cc. Unfortunately, we were not able to to get an initial blood gas. I recommended that the patient be moved to the trauma bay and intubated by the TAX MANAGER. Follow-up chest x-ray showing the endotracheal tube in appropriate position above the avery. Orogastric tube coursing below the diaphragm. Initial ventilator settings include assist- control, respiratory rate 20, tidal volume 500, FiO2 100%, PEEP of 5. Currently, patient is fairly asynchronous with the ventilator and he is biting the tube. There are copious amounts of blood-tinged sputum in the ET tube. Elevated peak airway pressures of 45. Static pressure 32. The nurses are working on appropriately sedating the patient with propofol. Postintubation, the patient did become hypotensive, currently receiving his second liter of normal saline. Will also start the patient on norepinephrine to maintain a MAP of greater than 65 mmHg. I did insert a left femoral arterial line. Following this, we did obtain an ABG showing profound hypercapnic and hypoxic respiratory failure. PaO2 of 89, pCO2 98, pH of 7.11. Appropriate ventilator adjustments were made including increasing the rate to 26 and PEEP can be increased to 8. Patient may eventually need repeat bronchoscopy with BAL. Case will be discussed with Dr. Munoz. Patient is still waiting for a bed in the intensive care unit. I did call and update patient's son Alan about his change in clinical condition. 02/27/24 - Patient seen at bedside today, in the ICU. He is on day 3 of his hospital stay, admitted on 02/25/24 and in the ICU since 02/26/24. He remains mechanically ventilated intubated since 02/26/24. He remains on assist-control with a rate of 26, volume 500, FiO2 50% (down from 60%) and a PEEP of 8. ABG done today (on 60% FiO2) showed pO2 126, pCO2 35, pH is 7.50, indicating a mixed respiratory and metabolic alkalosis. Abnormality shown on the patient's lab this morning, inconsistent and drastic changes from previous labs. Will perform a redraw today to get a better idea on how the labs are changed. He remains on vasopressin 0.03 units/min, Levophed at 0.07 mcg/kg/min (6.8 mcg/min), propofol 75 mcg/kg/min, receiving TPN at 30 cc/h (which is goal). Patient's blood pressure today 131/53. Additionally, patient receiving cefepime and vancomycin secondary to leukocytosis and a Tmax on 02/26/24 of 100.5 F. Sputum culture currently pending. Chest x-ray from this morning showed improving right perihilar and lower lobe infiltrate. Additionally, patient is currently receiving TPN ([employer]) at 30 cc/h which is goal for dietitian. 02/28/24 - Patient seen at bedside today, in the ICU. He is on day 4 of his hos pital stay, admitted on 02/25/24 and in the ICU since 02/26/24. He remains intubated and mechanically ventilated since 02/26/24. He remains on assist- control with a rate of 25, [place] 500, FiO2 40% and PEEP of 8. ABG done today (while on 100% FiO2) showed pO2 255, pCO2 37, pH 7.44 indicating slight respiratory alkalosis. The abnormalities noted on the patient's labs from yesterday were rechecked on a couple of occasion and seem to be accurate. This morning labs showed WBC 5.2, hemoglobin 8.2, sodium 139, potassium 3.8, chloride 114, BUN 10, creatinine 0.44, calcium 8.2, phosphorus 2.6, magnesium 2.0. Patient received supplementation with sodium phosphate, potassium chloride and magnesium sulfate. He remains on Levophed 0.07 mcg/kg/min (7 mcg/min), propofol 75 mcg/kg/min, normal saline at 30 cc/h and TPN at 30 cc/h (which is goal). Additionally, patient remains on cefepime and vancomycin; sputum culture is final for Pseudomonas aeruginosa that any resistance. Blood cultures continue to be pending at this time. Chest x-ray from this morning continue show right lower lobe infiltrate. REVIEW OF SYSTEMS: Unable to assess as patient is currently intubated mechanically ventilated. PHYSICAL EXAMINATION: GENERAL: Patient currently intubated mechanically ventilated and sedated. HEENT: No scleral icterus. No conjunctival pallor. Normocephalic, atraumatic. CARDIOVASCULAR: S1 and S2 present. No murmurs, rubs, or gallops. PULMONARY: Diminished breath sounds were bilaterally. ABDOMEN: Soft, nontender, nondistended, normoactive bowel sounds. No palpable organomegaly. Functioning ileostomy. MUSCULOSKELETAL: No joint swelling or deformity. EXTREMITIES: No cyanosis, clubbing, or pedal edema. NEUROLOGICAL: Unable to fully assess the patient has intubated mechanically vent ilated and sedated. SKIN: No rashes. Left chest PICC line. Assessment and plan #Acute hypoxic and hypercapnic respiratory failure, requiring mechanical intubation on 02/26/24 #Recent history of recurrent ventilator dependent respiratory failure, secondary to pneumonia and mucous plugging #Cardiogenic shock secondary to sepsis/respiratory failure #Sepsis secondary to above #Leukocytosis, resolved -Chest x-ray showing interval worsening of the right lung opacification, possible right lower lobe pneumonia -Possible recurrent mucous plugging absorptive atelectasis -Most recent bronchoscopy with bronchoalveolar lavage on 12/30 and 01/02 which showed MRSA and Klebsiella pneumonia -WBCs 18.9 (02/26/24), labs drawn on 02/26 requiring redraw as result seem to be likely due to error - pending redraw -WBCs this AM 5.2 -Tmax 100.5 F -Final sputum culture showed Pseudomonas aeruginosa without any resistance -Blood cultures currently pending -Procalcitonin elevated at 0.63 -Continue on cefepime and vancomycin -Echocardiogram completed on 02/26/24 showed EF 60-65% -Continue cardiac monitoring #Hx of Crohn's disease, with previous complication of bowel perforation s/p colectomy and diverting ileostomy -Has active enterocutaneous fistula -Receiving TPN for nutritional support #Hyperphosphatemia, resolved -Labs from 02/26/24 8.1 -Phosphate today 2.6 #Hypokalemia, resolved #Hyponatremia, resolved #Hypophosphatemia, resolved #Hypomagnesemia, resolved -Patient received supplementation with sodium phosphate, potassium chloride and magnesium sulfate -Continue to monitor electrolytes #Hx of previous tracheostomy and reversal, with tracheal stenosis #Hx of tracheobronchomalacia #Hx of DVT, on therapeutic dose of Lovenox #Hx of CVA/TIA, with residual left-sided weakness #Hx right BKA #Hx of cardiac asystole/arrest in 2021 GI prophylaxis: Protonix 40 mg IV daily DVT Prophylaxis: Lovenox 80 mg SQ twice daily Dictation was produced using SmartAsset[employer] software. please excuse any grammatical, word or spelling errors. Objective - Vital Signs Vital signs: Vital Signs Temp 100.1 F H 02/28/24 00:00 Pulse 83 02/28/24 10:09 Resp 26 H 02/28/24 07:00 BP 146/70 02/27/24 09:00 Pulse Ox 98 02/28/24 07:00 FiO2 40 02/28/24 09:55 Intake & Output 02/27/24 02/28/24 02/28/24 18:59 06:59 18:59 Intake Total 2977.753 2314.408 90.729 Output Total 1380 2705 Balance 1597.753 -390.592 90.729 Weight 97.4 kg 96.7 kg Intake: IV 1686 1744 Cefepime 2 gm In Sodium 100 225 Chloride 0.9% 100 ml @ 25 mls/hr IVPB Q8H [facility] Rx#: [id number] Magnesium Sulfate-D5w Pmx 300 1 gm In Dextrose/Water 1 100ml.bag @ 100 mls/hr IVPB Q1H [facility] Rx#: [id number] Mvi, Adult No.4 with Vit 360 270 K 10 ml Trace (Conc-1Ml/ Dose) 1 ml Sodium Acetate 30 meq Potassium Chloride 20 meq Calcium Gluconate 1 gm In Amino Acids 5 %/Dextrose 20 % 1 ,000 ml @ 30 mls/hr IV . Q24H [facility] Rx#:[id number] NORMAL SALINE PRESSURE 36 39 BAG Potassium Chloride 10 meq 100 In Water For Injection 1 100ml.bag @ 100 mls/hr IVPB Q1H [facility] Rx#: [id number] Potassium Chloride 20 meq 200 300 In Water For Injection 1 100ml.bag @ 50 mls/hr IVPB Q2H [facility] Rx#: [id number] Sodium Chloride 0.9% 1, 240 260 000 ml @ 20 mls/hr IV . Q24H [facility] Rx#:[id number] Sodium Phosphate 15 mmol 250 In Dextrose 5% in Water 250 ml @ 127.5 mls/hr IVPB ONCE ONE Rx#: [id number] Sodium Phosphate 30 mmol 250 In Dextrose 5% in Water 250 ml @ 65 mls/hr IVPB ONCE ONE Rx#:[id number] Vancomycin 1,500 mg In 500 Sodium Chloride 0.9% 500 ml 500 ml @ 167 mls/hr IVPB ONCE ONE Rx#: [id number] Intake, IV Titration 1291.753 570.408 90.729 Amount Mvi, Adult No.4 with Vit 703.5 K 10 ml Trace (Conc-1Ml/ Dose) 1 ml Sodium Acetate 30 meq Potassium Chloride 20 meq Calcium Gluconate 1 gm In Amino Acids 5 %/Dextrose 20 % 1 ,000 ml @ 30 mls/hr IV . Q24H [facility] Rx#:[id number] Norepinephrine 32 mg In 30.379 24.654 Sodium Chloride 0.9% 218 ml @ 0.08 MCG/KG/MIN 3. 653 mls/hr IV .Q24H [facility] Rx#:[id number] Vasopressin 60 unit In 128.52 Sodium Chloride 0.9% 150 ml @ 0.03 UNITS/MIN 4.59 mls/hr IV .Q24H [facility] Rx#: [id number] propofoL 1,000 mg In 429.354 545.754 90.729 Empty Bag 1 bag @ 15 MCG/ KG/MIN 8.573 mls/hr IV . [id number] [facility] Rx#:[id number] Output: Urine 1380 1655 Stool 1050 Other: Voiding Method Indwelling Catheter Indwelling Catheter ABP, PAP, CO, CI - Last Documented Arterial Blood Pressure 114/43 - Labs CBC & Chem 7: 02/28/24 05:45 02/28/24 05:45 Labs: Abnormal Lab Results - Last 24 Hours (Table) 02/27/24 02/27/24 02/27/24 Range/Units 10:56 10:56 13:27 RBC 3.23 L (4.30-5.90) m/uL Hgb 8.6 L (13.0-17.5) gm/dL Hct 28.2 L (39.0-53.0) % MCHC 30.4 L (31.0-37.0) g/dL RDW 18.3 H (11.5-15.5) % ABG pO2 (83-108) mmHg ABG Total CO2 (19-24) mmol/L ABG O2 Saturation (94-97) % Hemoglobin (13.0-17.5) gm/dL Sodium 136 L (137-145) mmol/L Potassium 3.0 L (3.5-5.1) mmol/L Chloride 109 H (98-107) mmol/L Creatinine 0.38 L (0.66-1.25) mg/dL Glucose 142 H (74-99) mg/dL POC Glucose (mg/dL) 111 H (70-110) mg/dL Calcium (8.4-10.2) mg/dL Phosphorus 1.0 L* (2.5-4.5) mg/dL Magnesium (1.6-2.3) mg/dL Total Protein 6.1 L (6.3-8.2) g/dL Albumin 2.5 L (3.5-5.0) g/dL 02/27/24 02/27/24 02/27/24 Range/Units 18:01 20:16 20:16 RBC 3.05 L (4.30-5.90) m/uL Hgb 8.2 L (13.0-17.5) gm/dL Hct 26.6 L (39.0-53.0) % MCHC 30.8 L (31.0-37.0) g/dL RDW 18.3 H (11.5-15.5) % ABG pO2 (83-108) mmHg ABG Total CO2 (19-24) mmol/L ABG O2 Saturation (94-97) % Hemoglobin (13.0-17.5) gm/dL Sodium (137-145) mmol/L Potassium 2.9 L (3.5-5.1) mmol/L Chloride 114 H (98-107) mmol/L Creatinine 0.41 L (0.66-1.25) mg/dL Glucose (74-99) mg/dL POC Glucose (mg/dL) 112 H (70-110) mg/dL Calcium (8.4-10.2) mg/dL Phosphorus 2.2 L (2.5-4.5) mg/dL Magnesium 1.5 L (1.6-2.3) mg/dL Total Protein (6.3-8.2) g/dL Albumin (3.5-5.0) g/dL 02/27/24 02/28/24 02/28/24 Range/Units 23:54 05:45 05:45 RBC 3.09 L (4.30-5.90) m/uL Hgb 8.2 L (13.0-17.5) gm/dL Hct 27.3 L (39.0-53.0) % MCHC 29.8 L (31.0-37.0) g/dL RDW 18.2 H (11.5-15.5) % ABG pO2 (83-108) mmHg ABG Total CO2 (19-24) mmol/L ABG O2 Saturation (94-97) % Hemoglobin (13.0-17.5) gm/dL Sodium (137-145) mmol/L Potassium (3.5-5.1) mmol/L Chloride 114 H (98-107) mmol/L Creatinine 0.44 L (0.66-1.25) mg/dL Glucose 104 H (74-99) mg/dL POC Glucose (mg/dL) 118 H (70-110) mg/dL Calcium 8.2 L (8.4-10.2) mg/dL Phosphorus (2.5-4.5) mg/dL Magnesium (1.6-2.3) mg/dL Total Protein (6.3-8.2) g/dL Albumin (3.5-5.0) g/dL 02/28/24 Range/Units 06:10 RBC (4.30-5.90) m/uL Hgb (13.0-17.5) gm/dL Hct (39.0-53.0) % MCHC (31.0-37.0) g/dL RDW (11.5-15.5) % ABG pO2 255 H (83-108) mmHg ABG Total CO2 26 H (19-24) mmol/L ABG O2 Saturation >100.0 H (94-97) % Hemoglobin 8.3 L (13.0-17.5) gm/dL Sodium (137-145) mmol/L Potassium (3.5-5.1) mmol/L Chloride (98-107) mmol/L Creatinine (0.66-1.25) mg/dL Glucose (74-99) mg/dL POC Glucose (mg/dL) (70-110) mg/dL Calcium (8.4-10.2) mg/dL Phosphorus (2.5-4.5) mg/dL Magnesium (1.6-2.3) mg/dL Total Protein (6.3-8.2) g/dL Albumin (3.5-5.0) g/dL Microbiology - Last 24 Hours (Table) 02/26/24 03:28 Gram Stain - Final Sputum Sputum Culture - Final Pseudomonas aeruginosa 02/26/24 04:50 Blood Culture - Preliminary Blood 02/26/24 04:30 Blood Culture - Preliminary Blood
[2024-02-28 11:39] LABS: Glucose,Whole Blood 103 mg/dL (70-110)
[2024-02-28] MEDS: MVI, ADULT NO.4 WITH VIT K 10 ML, TRACE (CONC-1ML/DOSE) 1 ML, SODIUM ACETATE 40 MEQ, PO... IV SCH ×2 (13:00→21:54)
[2024-02-28 17:37] LABS: Glucose,Whole Blood 120 mg/dL (70-110)
[2024-02-29 00:19] LABS: Glucose,Whole Blood 93 mg/dL (70-110)
--- NOTE | 2024-02-29 05:08 | XR ---
EXAMINATION TYPE: XR chest 1V DATE OF EXAM: 02/29/2024 CLINICAL HISTORY: Difficulty breathing progress study. TECHNIQUE: Single AP portable semiupright view of the chest is obtained. COMPARISON: Chest x-ray from one day earlier FINDINGS: Stable endotracheal and orogastric tubes. Stable left-sided central venous catheter. Persistent right supraclavicular surgical clips. More prominent bibasilar opacity. Cardiac silhouette size stable and upper limits of normal. IMPRESSION: More prominent small bilateral pleural effusions and associated bibasilar opacities could reflect acute infiltrate and/or atelectasis. Correlate for fluid overload state. [facility], , 02/29/2024 5:05 AM
[2024-02-29 05:10] LABS: ABG Base Excess 1.2 mmol/L; ABG HCO3 24 mmol/L (21-25); ABG Oxygen Saturation 99.3 % (94-97); ABG PCO2 30 mmHg (35-45); ABG PH 7.51 (7.35-7.45); ABG PO2 96 mmHg (83-108); ABG TCO2 25 mmol/L (19-24); Allen Test Performed? Yes
[2024-02-29 05:35] LABS: ALT 18 U/L (4-49); AST 27 U/L (17-59); African American GFR (CKD) >90 (>60 ml/min/1.73 sqM); Albumin 2.5 g/dL (3.5-5.0); Alkaline Phosphatase 80 U/L (38-126); Anion Gap 1 mmol/L; Blood Urea Nitrogen 13 mg/dL (9-20); Calcium 8.6 mg/dL (8.4-10.2); Carbon Dioxide 23 mmol/L (22-30); Chloride 114 mmol/L (98-107); Glucose 99 mg/dL (74-99); Non-African American GFR(CKD) >90 (>60 ml/min/1.73 sqM); Potassium 3.9 mmol/L (3.5-5.1); Sodium 138 mmol/L (137-145); Total Bilirubin 0.7 mg/dL (0.2-1.3); Total Protein 6.2 g/dL (6.3-8.2)
[2024-02-29 05:36] LABS: Magnesium 1.9 mg/dL (1.6-2.3); Phosphorus 2.2 mg/dL (2.5-4.5)
[2024-02-29 05:48] LABS: Glucose,Whole Blood 100 mg/dL (70-110)
[2024-02-29 05:49] LABS: Anisocytosis Slight; HCT 26.3 % (39.0-53.0); Hypochromasia Marked; MCH 26.8 pg (25.0-35.0); MCHC 30.3 g/dL (31.0-37.0); MCV 88.4 fL (80.0-100.0); Mean Platelet Volume 9.4; Platelet Count 200 k/uL (150-450); Poikilocytosis Slight; RBC 2.97 m/uL (4.30-5.90); RDW 18.4 % (11.5-15.5); WBC 4.1 k/uL (3.8-10.6)
[2024-02-29] MEDS: SODIUM PHOSPHATE 15 MMOL in DEXTROSE 5% IN WATER 250 ML IVPB ONE (06:05)
[2024-02-29] MEDS: MAGNESIUM SULFATE-D5W PMX 1 GM in DEXTROSE/WATER 1 100ML.BAG IVPB ONE (06:28)
--- NOTE | 2024-02-29 07:21 | P.PN ---
Subjective Progress Note Date: 02/28/24 This is a 48-year-old male who presented to the emergency department with increased shortness of breath and hypoxia with concerns of possible pneumonia. Patient was placed on nonrebreather and ultimately required BiPAP as patient chronically wears oxygen outpatient and became more obtunded and unresponsive requiring mechanical ventilation and was admitted to the ICU with hypoxia and concerns for pneumonia. Patient follows with Dr. Ivey in the outpatient setting with a significant past medical history of CVA, DVT, Crohn's, previous MRSA infections, right BKA and multiple hospitalizations. Patient is maintained on TPN outpatient for his chronic malnutrition secondary to Crohn's and was most recently hospitalized earlier this year requiring ICU admission and mechanical ventilation with continuous mucous plugging requiring multiple bronchoscopies. Blood pressures are also low requiring pressor support. Antibiotics were started with concerns of pneumonia. Procalcitonin ordered. Recommend infectious disease evaluation and appreciate input and recommendations as well. 02/27/2024 Patient is seen and evaluated in follow-up continues in the ICU on mechanical ventilation with no attempts at weaning today. Patient is off vasopressin although still requiring Levophed for extremely low blood pressures. Hemoglobin is stable above 8.6 and patient remains afebrile with no white count. Sodium is 136 with a potassium of 3.0, 0.38 creatinine and blood sugars being controlled. Phosphorus low on redraw at 1.0 along with magnesium being 1.6. Will replace phosphorus and potassium per protocol and also continue with TPN. Pharmacy and dietary to make adjustments on TPN and electrolytes. Preliminary Gram stain sputum culture showing Pseudomonas aeruginosa and blood cultures thus far have been negative. Chest x-ray today shows improving right perihilar and lower lobe infiltrate. Infectious disease following as well and patient is continued on cefepime along with vancomycin. 02/28/2024 Patient evaluated today in follow up remains in the ICU and on the mechanical ventilator with no attempts being made to wean today. Patient remains on IV cefepime with findings of pseudomonas in the sputum. Chest xray today reveals mild worsening right lower lobe infiltrate. Correlate for atelectasis or pneumonia. Patient remains on TPN at this time. White blood cell count remains normal at 5.2. Hemoglobin stable at 8.2. Sodium better at 3.8. Patient remains on levophed. REVIEW OF SYSTEMS: Unable to completely assess as patient is on mechanical ventilation and sedated The rest of the 14-point review of systems is negative. PHYSICAL EXAMINATION: GENERAL: The patient is currently on mechanical ventilation with an FiO2 of 50%, PEEP is 5. Well developed, appears older than stated age, ill-appearing, obese HEENT: Pupils are round and equally reacting to light. EOMI. No scleral icterus. No conjunctival pallor. Normocephalic, atraumatic. No pharyngeal erythema. No thyromegaly. CARDIOVASCULAR: S1 and S2 muffled, PULMONARY: Diminished breath sounds bilaterally with ventilator assist breathing, some bronchial congestion noted ABDOMEN: Soft, nontender, nondistended, normoactive bowel sounds. No palpable organomegaly. Ostomy noted MUSCULOSKELETAL: No joint swelling or deformity. EXTREMITIES: No cyanosis, clubbing, or pedal edema. Right BKA noted, diffusely weak currently on sedation NEUROLOGICAL: Gross neurological examination did not reveal any focal deficits. Unable to completely assess as patient is sedated SKIN: No rashes. Assessment: Shortness of breath, acute hypoxic respiratory failure requiring mechanical ventilation, likely secondary to recurrent mucous plugging with concerns of possible right lower lobe pneumonia Possible right lower lobe pneumonia, present on admission versus recurrent mucous plugging with atelectasis, procalcitonin is 0.63 Electrolyte abnormalities including low phosphorus and low potassium, being replaced per protocol Sepsis, present on admission secondary to above History of tracheobronchomalacia History of anemia History of CVA History of DVT and right BKA History of Crohn's disease with previous bowel perforation with colectomy and end ileostomy with chronic wounds with enterocutaneous fistulas Severe protein calorie malnutrition secondary to Crohn's and maintained on TPN outpatient History of previous tracheostomy with tracheal stenosis History of previous cardiac arrest in 2021 History of MRSA previously Former smoker Obesity with a BMI of 30.8 GI prophylaxis DVT prophylaxis Full code Plan: Patient continues in the ICU on mechanical ventilation and being weaned with no plans of extubation at this time, FiO2 has been reduced to 50% with a PEEP of 5 Patient continues in the ICU with pulmonary inorganic chemistry professor following. Antibiotics have been started with concerns of pneumonia and procalcitonin is mildly el evated at 0.63. Infectious disease following and patient is continued on cefepime and vancomycin Recommend frequent suctioning per pulmonary inorganic chemistry professor and monitor respiratory status closely for any further mucous plugging. Patient was recently hospitalized in the ICU for quite some time and underwent multiple bronchoscopies Continue local wound care and also consult ostomy nurse Follow-up on repeat labs and replace electrolytes per protocol Cardiology following with no acute changes in medications recommend to continue with telemetry monitoring Continue dietary and pharmacy to adjust TPN Due to multiple complex medical issues, overall prognosis is guarded CODE STATUS was addressed once again with family and they are adamant patient remains full code The impression and plan of care has been dictated by Coral Medina, Nurse Practitioner as directed. Dr. Mo MD I have performed a history and examination and MDM of this patient, discussed the same with the dictator, and agree with the dictator's assessment and plan as written ,documented as a scribe. Based on total visit time, I have performed more than 50% of the visit. Objective - Vital Signs Vital signs: Vital Signs Temp 100.1 F H 02/28/24 00:00 Pulse 74 02/28/24 07:00 Resp 26 H 02/28/24 07:00 BP 146/70 02/27/24 09:00 Pulse Ox 98 02/28/24 07:00 FiO2 40 02/28/24 09:19 Intake & Output 02/27/24 02/28/24 02/28/24 18:59 06:59 18:59 Intake Total 2977.753 2314.408 90.729 Output Total 1380 2705 Balance 1597.753 -390.592 90.729 Weight 97.4 kg 96.7 kg Intake: IV 1686 1744 Cefepime 2 gm In Sodium 100 225 Chloride 0.9% 100 ml @ 25 mls/hr IVPB Q8H [facility] Rx#: [id number] Magnesium Sulfate-D5w Pmx 300 1 gm In Dextrose/Water 1 100ml.bag @ 100 mls/hr IVPB Q1H [facility] Rx#: [id number] Mvi, Adult No.4 with Vit 360 270 K 10 ml Trace (Conc-1Ml/ Dose) 1 ml Sodium Acetate 30 meq Potassium Chloride 20 meq Calcium Gluconate 1 gm In Amino Acids 5 %/Dextrose 20 % 1 ,000 ml @ 30 mls/hr IV . Q24H [facility] Rx#:[id number] NORMAL SALINE PRESSURE 36 39 BAG Potassium Chloride 10 meq 100 In Water For Injection 1 100ml.bag @ 100 mls/hr IVPB Q1H [facility] Rx#: [id number] Potassium Chloride 20 meq 200 300 In Water For Injection 1 100ml.bag @ 50 mls/hr IVPB Q2H [facility] Rx#: [id number] Sodium Chloride 0.9% 1, 240 260 000 ml @ 20 mls/hr IV . Q24H [facility] Rx#:[id number] Sodium Phosphate 15 mmol 250 In Dextrose 5% in Water 250 ml @ 127.5 mls/hr IVPB ONCE ONE Rx#: [id number] Sodium Phosphate 30 mmol 250 In Dextrose 5% in Water 250 ml @ 65 mls/hr IVPB ONCE ONE Rx#:[id number] Vancomycin 1,500 mg In 500 Sodium Chloride 0.9% 500 ml 500 ml @ 167 mls/hr IVPB ONCE ONE Rx#: [id number] Intake, IV Titration 1291.753 570.408 90.729 Amount Mvi, Adult No.4 with Vit 703.5 K 10 ml Trace (Conc-1Ml/ Dose) 1 ml Sodium Acetate 30 meq Potassium Chloride 20 meq Calcium Gluconate 1 gm In Amino Acids 5 %/Dextrose 20 % 1 ,000 ml @ 30 mls/hr IV . Q24H [facility] Rx#:[id number] Norepinephrine 32 mg In 30.379 24.654 Sodium Chloride 0.9% 218 ml @ 0.08 MCG/KG/MIN 3. 653 mls/hr IV .Q24H [facility] Rx#:[id number] Vasopressin 60 unit In 128.52 Sodium Chloride 0.9% 150 ml @ 0.03 UNITS/MIN 4.59 mls/hr IV .Q24H [facility] Rx#: [id number] propofoL 1,000 mg In 429.354 545.754 90.729 Empty Bag 1 bag @ 15 MCG/ KG/MIN 8.573 mls/hr IV . [id number] [facility] Rx#:[id number] Output: Urine 1380 1655 Stool 1050 Other: Voiding Method Indwelling Catheter Indwelling Catheter ABP, PAP, CO, CI - Last Documented Arterial Blood Pressure 114/43 - Labs CBC & Chem 7: 02/29/24 04:55 02/29/24 04:55 Labs: Abnormal Lab Results - Last 24 Hours (Table) 02/27/24 02/27/24 02/27/24 Range/Units 10:56 10:56 13:27 RBC 3.23 L (4.30-5.90) m/uL Hgb 8.6 L (13.0-17.5) gm/dL Hct 28.2 L (39.0-53.0) % MCHC 30.4 L (31.0-37.0) g/dL RDW 18.3 H (11.5-15.5) % ABG pO2 (83-108) mmHg ABG Total CO2 (19-24) mmol/L ABG O2 Saturation (94-97) % Hemoglobin (13.0-17.5) gm/dL Sodium 136 L (137-145) mmol/L Potassium 3.0 L (3.5-5.1) mmol/L Chloride 109 H (98-107) mmol/L Creatinine 0.38 L (0.66-1.25) mg/dL Glucose 142 H (74-99) mg/dL POC Glucose (mg/dL) 111 H (70-110) mg/dL Calcium (8.4-10.2) mg/dL Phosphorus 1.0 L* (2.5-4.5) mg/dL Magnesium (1.6-2.3) mg/dL Total Protein 6.1 L (6.3-8.2) g/dL Albumin 2.5 L (3.5-5.0) g/dL 02/27/24 02/27/24 02/27/24 Range/Units 18:01 20:16 20:16 RBC 3.05 L (4.30-5.90) m/uL Hgb 8.2 L (13.0-17.5) gm/dL Hct 26.6 L (39.0-53.0) % MCHC 30.8 L (31.0-37.0) g/dL RDW 18.3 H (11.5-15.5) % ABG pO2 (83-108) mmHg ABG Total CO2 (19-24) mmol/L ABG O2 Saturation (94-97) % Hemoglobin (13.0-17.5) gm/dL Sodium (137-145) mmol/L Potassium 2.9 L (3.5-5.1) mmol/L Chloride 114 H (98-107) mmol/L Creatinine 0.41 L (0.66-1.25) mg/dL Glucose (74-99) mg/dL POC Glucose (mg/dL) 112 H (70-110) mg/dL Calcium (8.4-10.2) mg/dL Phosphorus 2.2 L (2.5-4.5) mg/dL Magnesium 1.5 L (1.6-2.3) mg/dL Total Protein (6.3-8.2) g/dL Albumin (3.5-5.0) g/dL 02/27/24 02/28/24 02/28/24 Range/Units 23:54 05:45 05:45 RBC 3.09 L (4.30-5.90) m/uL Hgb 8.2 L (13.0-17.5) gm/dL Hct 27.3 L (39.0-53.0) % MCHC 29.8 L (31.0-37.0) g/dL RDW 18.2 H (11.5-15.5) % ABG pO2 (83-108) mmHg ABG Total CO2 (19-24) mmol/L ABG O2 Saturation (94-97) % Hemoglobin (13.0-17.5) gm/dL Sodium (137-145) mmol/L Potassium (3.5-5.1) mmol/L Chloride 114 H (98-107) mmol/L Creatinine 0.44 L (0.66-1.25) mg/dL Glucose 104 H (74-99) mg/dL POC Glucose (mg/dL) 118 H (70-110) mg/dL Calcium 8.2 L (8.4-10.2) mg/dL Phosphorus (2.5-4.5) mg/dL Magnesium (1.6-2.3) mg/dL Total Protein (6.3-8.2) g/dL Albumin (3.5-5.0) g/dL 02/28/24 Range/Units 06:10 RBC (4.30-5.90) m/uL Hgb (13.0-17.5) gm/dL Hct (39.0-53.0) % MCHC (31.0-37.0) g/dL RDW (11.5-15.5) % ABG pO2 255 H (83-108) mmHg ABG Total CO2 26 H (19-24) mmol/L ABG O2 Saturation >100.0 H (94-97) % Hemoglobin 8.3 L (13.0-17.5) gm/dL Sodium (137-145) mmol/L Potassium (3.5-5.1) mmol/L Chloride (98-107) mmol/L Creatinine (0.66-1.25) mg/dL Glucose (74-99) mg/dL POC Glucose (mg/dL) (70-110) mg/dL Calcium (8.4-10.2) mg/dL Phosphorus (2.5-4.5) mg/dL Magnesium (1.6-2.3) mg/dL Total Protein (6.3-8.2) g/dL Albumin (3.5-5.0) g/dL Microbiology - Last 24 Hours (Table) 02/26/24 03:28 Gram Stain - Final Sputum Sputum Culture - Final Pseudomonas aeruginosa 02/26/24 04:50 Blood Culture - Preliminary Blood 02/26/24 04:30 Blood Culture - Preliminary Blood Assessment and Plan Time with Patient: Less than 30
--- NOTE | 2024-02-29 08:07 | P.PN ---
Subjective Progress Note Date: 02/29/24 history of present illness - Patient is a 48-year-old male with complex past medical history including CVA, previous DVTs, right BKA, cardiac arrest in 2021, Crohn's disease, enterocutaneous fistulas, previous bowel resection, ventilator dependent respiratory failure, previous tracheostomy and reversal. Recently was admitted 12/13/2023 through 12/25/2023 for pneumonia and respiratory failure due to mucous plugging. He was intubated and placed on mechanical ventilator for approximately 6 days. He did have a bronchoscopy with BAL, microbiology positive for haemophilus influenza. Eventually, discharged home, and returned 01/02/24 for GIB from his ostomy. Was reintubated and did spend some time on the ventilator for reccurent pneumonia and mucous plugging. During this time, had multiple bronchoscopies with BAL, once on 12/31/2023 and again on 01/03/2024, isolated organisms including MRSA and Pseudomonas. Patient was eventually discharged back home on 01/16/2024. More recently, patient had an ER visit for increased work of breathing on February 22, and the patient was sent home. Returned for similar symptoms yesterday afternoon. Chest x-ray done on admission showing cardiomegaly with pulmonary vascular congestion and questionable right lower lobe infiltrate or effusion. CBC: WBC count 11.2, hemoglobin 10.5, hematocrit 37.3, platelets 315. CMP: Sodium 138, potassium 4.8, chloride 97, serum bicarb 39, BUN 23, creatinine 0.45, glucose 103. Lactic 1. LFTs unremarkable. Troponin less than 0.012. I am evaluating this patient emergency department, he is currently unresponsive, to even painful stimuli. He is on a 15 L nonrebreather. SpO2 88%. Diminished breath sounds on the right Will place this patient on BiPAP with initial settings 16/5 FiO2 to be titrated accordingly. Will get a stat ABG. We will repeat chest x-ray. I did talk to the patient's son, Alan, he is adamant that the patient remain a full code, would want the patient intubated if necessary. On reassessment in the emergency department, patient remained on BiPAP with settings 16/5 100%. He remains unresponsive to painful stimuli. Now only achieving tidal volumes ranging from 100 to 200 cc. Unfortunately, we were not able to to get an initial blood gas. I recommended that the patient be moved to the trauma bay and intubated by the ASSISTANT FRONT OFFICE MANAGER. Follow-up chest x-ray showing the endotracheal tube in appropriate position above the avery. Orogastric tube coursing below the diaphragm. Initial ventilator settings include assist- control, respiratory rate 20, tidal volume 500, FiO2 100%, PEEP of 5. Currently, patient is fairly asynchronous with the ventilator and he is biting the tube. There are copious amounts of blood-tinged sputum in the ET tube. Elevated peak airway pressures of 45. Static pressure 32. The nurses are working on appropriately sedating the patient with propofol. Postintubation, the patient did become hypotensive, currently receiving his second liter of normal saline. Will also start the patient on norepinephrine to maintain a MAP of greater than 65 mmHg. I did insert a left femoral arterial line. Following this, we did obtain an ABG showing profound hypercapnic and hypoxic respiratory failure. PaO2 of 89, pCO2 98, pH of 7.11. Appropriate ventilator adjustments were made including increasing the rate to 26 and PEEP can be increased to 8. Patient may eventually need repeat bronchoscopy with BAL. Case will be discussed with Dr. Munoz. Patient is still waiting for a bed in the intensive care unit. I did call and update patient's son Alan about his change in clinical condition. 02/27/24 - Patient seen at bedside today, in the ICU. He is on day 3 of his hospital stay, admitted on 02/25/24 and in the ICU since 02/26/24. He remains mechanically ventilated intubated since 02/26/24. He remains on assist-control with a rate of 26, volume 500, FiO2 50% (down from 60%) and a PEEP of 8. ABG done today (on 60% FiO2) showed pO2 126, pCO2 35, pH is 7.50, indicating a mixed respiratory and metabolic alkalosis. Abnormality shown on the patient's lab this morning, inconsistent and drastic changes from previous labs. Will perform a redraw today to get a better idea on how the labs are changed. He remains on vasopressin 0.03 units/min, Levophed at 0.07 mcg/kg/min (6.8 mcg/min), propofol 75 mcg/kg/min, receiving TPN at 30 cc/h (which is goal). Patient's blood pressure today 131/53. Additionally, patient receiving cefepime and vancomycin secondary to leukocytosis and a Tmax on 02/26/24 of 100.5 F. Sputum culture currently pending. Chest x-ray from this morning showed improving right perihilar and lower lobe infiltrate. Additionally, patient is currently receiving TPN ([employer]) at 30 cc/h which is goal for dietitian. 02/28/24 - Patient seen at bedside today, in the ICU. He is on day 4 of his [facility] stay, admitted on 02/25/24 and in the ICU since 02/26/24. He remains intubated and mechanically ventilated since 02/26/24. He remains on assist- control with a rate of 25, [place] 500, FiO2 40% and PEEP of 8. ABG done today (while on 100% FiO2) showed pO2 255, pCO2 37, pH 7.44 indicating slight respiratory alkalosis. The abnormalities noted on the patient's labs from yesterday were rechecked on a couple of occasion and seem to be accurate. This morning labs showed WBC 5.2, hemoglobin 8.2, sodium 139, potassium 3.8, chloride 114, BUN 10, creatinine 0.44, calcium 8.2, phosphorus 2.6, magnesium 2.0. Patient received supplementation with sodium phosphate, potassium chloride and magnesium sulfate. He remains on Levophed 0.07 mcg/kg/min (7 mcg/min), propofol 75 mcg/kg/min, normal saline at 30 cc/h and TPN at 30 cc/h (which is goal). Additionally, patient remains on cefepime and vancomycin; sputum culture is final for Pseudomonas aeruginosa that any resistance. Blood cultures continue to be pending at this time. Chest x-ray from this morning continue show right lower lobe infiltrate. 02/29/24 - Patient seen at bedside today, in the ICU. He is on day 5 of his hospital stay, admitted on 02/25/24 and then the ICU since 02/26/24. He remains intubated mechanically ventilated since 02/26/24. He remains on assist-control with a rate of 26, volume 500, FiO2 50%, PEEP of 8. ABG completed today showed pO2 96, pCO2 30, pH 7.51 indicating a respiratory and metabolic alkalosis. On labs drawn today patient's WBC is 4.1, hemoglobin 8.0, sodium 138, chloride 114, potassium 3.9, BUN 13, creatinine 0.46, phosphorus 2.2, magnesium 1.9. Patient received 1 g magnesium sulfate this morning and 15 mmol sodium phosphate. He remains on propofol 75 mcg/mg/min, Levophed at 0.03 mcg/kg/min (~3 mcg/min) and TPN at 30 cc/h (which is goal). He remains on 0.9% normal saline at 20 cc/h, and cefepime 2 g every 8 hours. Blood cultures remain pending at this time. Chest x-ray shows more prominent small bilateral pleural effusions and associated bibasilar opacities. REVIEW OF SYSTEMS: Unable to assess as patient is currently intubated mechanically ventilated. PHYSICAL EXAMINATION: GENERAL: Patient currently intubated mechanically ventilated and sedated. HEENT: No scleral icterus. No conjunctival pallor. Normocephalic, atraumatic. CARDIOVASCULAR: S1 and S2 present. No murmurs, rubs, or gallops. PULMONARY: Diminished breath sounds were bilaterally. ABDOMEN: Soft, nontender, nondistended, normoactive bowel sounds. No palpable organomegaly. Functioning ileostomy. MUSCULOSKELETAL: No joint swelling or deformity. EXTREMITIES: No cyanosis, clubbing, or pedal edema. NEUROLOGICAL: Unable to fully assess the patient has intubated mechanically ventilated and sedated. SKIN: No rashes. Left chest PICC line. Assessment and plan #Acute hypoxic and hypercapnic respiratory failure, requiring mechanical intubation on 02/26/24 #Recent history of recurrent ventilator dependent respiratory failure, secondary to pneumonia and mucous plugging #Cardiogenic shock secondary to sepsis/respiratory failure #Sepsis secondary to above #Leukocytosis, resolved -Chest x-ray showing interval worsening of the right lung opacification, possible right lower lobe pneumonia -Possible recurrent mucous plugging absorptive atelectasis -Most recent bronchoscopy with bronchoalveolar lavage on 12/30 and 01/02 which showed MRSA and Klebsiella pneumonia -WBCs 18.9 (02/26/24), labs drawn on 02/26 requiring redraw as result seem to be likely due to error - pending redraw -WBCs this AM 4.1 -Tmax 100.5 F (02/26/24) -Final sputum culture showed Pseudomonas aeruginosa without any resistance -Blood cultures currently pending -Procalcitonin elevated at 0.63 -Continue on cefepime -Vancomycin discontinued -Echocardiogram completed on 02/26/24 showed EF 60-65% -Continue cardiac monitoring #Hx of Crohn's disease, with previous complication of bowel perforation s/p colectomy and diverting ileostomy -Has active enterocutaneous fistula -Receiving TPN for nutritional support #Hyperphosphatemia, resolved -Labs from 02/26/24 8.1 -Phosphate today 2.2 -Received 15 mmol sodium phosphate today (02/29/24) #Hypokalemia, resolved #Hyponatremia, resolved #Hypophosphatemia, resolved #Hypomagnesemia, resolved -Patient received supplementation with sodium phosphate, potassium chloride and magnesium sulfate -Continue to monitor electrolytes -Patient received 1 gm magnesium sulfate this morning (02/29/24) #Hx of previous tracheostomy and reversal, with tracheal stenosis #Hx of tracheobronchomalacia #Hx of DVT, on therapeutic dose of Lovenox #Hx of CVA/TIA, with residual left-sided weakness #Hx right BKA #Hx of cardiac asystole/arrest in 2021 GI prophylaxis: Protonix 40 mg IV daily DVT Prophylaxis: Lovenox 80 mg SQ twice daily Dictation was produced using [employer] dictation software. please excuse any grammatical, word or spelling errors. Objective - Vital Signs Vital signs: Vital Signs Temp 99.9 F H 02/29/24 04:00 Pulse 74 02/29/24 07:00 Resp 26 H 02/29/24 07:00 BP 139/71 02/28/24 21:00 Pulse Ox 99 02/29/24 07:00 FiO2 50 02/29/24 04:02 Intake & Output 02/28/24 02/29/24 02/29/24 18:59 06:59 18:59 Intake Total 1047.594 8644.484 273 Output Total 2100 1800 635 Balance -901.247 -478.516 -362 Weight 96.7 kg 93.9 kg Intake: IV 758 741 273 Cefepime 2 gm In Sodium 100 175 25 Chloride 0.9% 100 ml @ 25 mls/hr IVPB Q8H [facility] Rx#: [id number] Magnesium Sulfate-D5w Pmx 100 1 gm In Dextrose/Water 1 100ml.bag @ 100 mls/hr IVPB ONCE ONE Rx#: [id number] Mvi, Adult No.4 with Vit 210 K 10 ml Trace (Conc-1Ml/ Dose) 1 ml Sodium Acetate 30 meq Potassium Chloride 20 meq Calcium Gluconate 1 gm In Amino Acids 5 %/Dextrose 20 % 1 ,000 ml @ 30 mls/hr IV . Q24H [facility] Rx#:[id number] Mvi, Adult No.4 with Vit 270 30 K 10 ml Trace (Conc-1Ml/ Dose) 1 ml Sodium Acetate 40 meq Potassium Acetate 20 meq Calcium Gluconate 1 gm Magnesium Sulfate gm 1 gm Potassium Phosphate 15 mmol In Amino Acids 5 %/Dextrose 20 % 1,000 ml @ 30 mls/hr IV .Q24H [facility] Rx#: [id number] NORMAL SALINE PRESSURE 33 36 3 BAG Potassium Chloride 10 meq 100 100 In Water For Injection 1 100ml.bag @ 100 mls/hr IVPB Q1H [facility] Rx#: [id number] Sodium Chloride 0.9% 1, 315 260 15 000 ml @ 20 mls/hr IV . Q24H [facility] Rx#:[id number] Intake, IV Titration 440.753 580.484 Amount Norepinephrine 32 mg In 59.004 Sodium Chloride 0.9% 218 ml @ 0.08 MCG/KG/MIN 3. 653 mls/hr IV .Q24H [facility] Rx#:[id number] propofoL 1,000 mg In 440.753 521.480 Empty Bag 1 bag @ 15 MCG/ KG/MIN 8.573 mls/hr IV . [id number] [facility] Rx#:[id number] Output: Urine 2100 1250 35 Stool 450 Urine/Stool Mix 500 Oral Regurgitation 100 100 Other: Voiding Method Indwelling Catheter Indwelling Catheter ABP, PAP, CO, CI - Last Documented Arterial Blood Pressure 116/47 - Labs CBC & Chem 7: 02/29/24 04:55 02/29/24 04:55 Labs: Abnormal Lab Results - Last 24 Hours (Table) 02/28/24 02/29/24 02/29/24 Range/Units 17:35 04:55 04:55 RBC 2.97 L (4.30-5.90) m/uL Hgb 8.0 L (13.0-17.5) gm/dL Hct 26.3 L (39.0-53.0) % MCHC 30.3 L (31.0-37.0) g/dL RDW 18.4 H (11.5-15.5) % ABG pH (7.35-7.45) ABG pCO2 (35-45) mmHg ABG Total CO2 (19-24) mmol/L ABG O2 Saturation (94-97) % Hemoglobin (13.0-17.5) gm/dL Chloride (98-107) mmol/L Creatinine (0.66-1.25) mg/dL POC Glucose (mg/dL) 120 H (70-110) mg/dL Phosphorus 2.2 L (2.5-4.5) mg/dL Total Protein (6.3-8.2) g/dL Albumin (3.5-5.0) g/dL 02/29/24 02/29/24 Range/Units 04:55 05:07 RBC (4.30-5.90) m/uL Hgb (13.0-17.5) gm/dL Hct (39.0-53.0) % MCHC (31.0-37.0) g/dL RDW (11.5-15.5) % ABG pH 7.51 H (7.35-7.45) ABG pCO2 30 L (35-45) mmHg ABG Total CO2 25 H (19-24) mmol/L ABG O2 Saturation 99.3 H (94-97) % Hemoglobin 8.1 L (13.0-17.5) gm/dL Chloride 114 H (98-107) mmol/L Creatinine 0.46 L (0.66-1.25) mg/dL POC Glucose (mg/dL) (70-110) mg/dL Phosphorus (2.5-4.5) mg/dL Total Protein 6.2 L (6.3-8.2) g/dL Albumin 2.5 L (3.5-5.0) g/dL Microbiology - Last 24 Hours (Table) 02/26/24 04:50 Blood Culture - Preliminary Blood 02/26/24 04:30 Blood Culture - Preliminary Blood 02/26/24 03:28 Gram Stain - Final Sputum Sputum Culture - Final Pseudomonas aeruginosa
[2024-02-29] MEDS: POTASSIUM CHLORIDE 10 MEQ in WATER FOR INJECTION 1 100ML.BAG IVPB SCH (09:06)
[2024-02-29 12:18] LABS: Glucose,Whole Blood 98 mg/dL (70-110)
--- NOTE | 2024-02-29 12:52 | P.PN ---
Subjective Progress Note Date: 02/28/24 Principal diagnosis: Reason for follow-up is pneumonia Patient is a 48-year-old male with a past medical history significant for CVA TIA DVT bones disease multiple abdominal surgeries did have a enterocutaneous fistula recent admission for pneumonia has been brought to the hospital with worsening shortness of with hypoxemia patient did have worsening respiratory status requiring intubation and admission to the ICU. On today's evaluation that is 02/28/2024, the patient did have a low-grade fever 100.1 F at midnight the patient is afebrile since then, patient remains to be debated on the vent FiO2 is currently stable at 50% patient is hemodynamically stable not requiring any pressor support no other changes reported by the nursing staff. Patient white count is 5.2 creatinine is 0.44, sputum is growing Pseudomonas Objective - Vital Signs Vital signs: Vital Signs Temp 100.1 F H 02/28/24 00:00 Pulse 83 02/28/24 10:09 Resp 26 H 02/28/24 07:00 BP 146/70 02/27/24 09:00 Pulse Ox 98 02/28/24 07:00 FiO2 40 02/28/24 09:55 Intake & Output 02/27/24 02/28/24 02/28/24 18:59 06:59 18:59 Intake Total 2977.753 2314.408 90.729 Output Total 1380 2705 Balance 1597.753 -390.592 90.729 Weight 97.4 kg 96.7 kg Intake: IV 1686 1744 Cefepime 2 gm In Sodium 100 225 Chloride 0.9% 100 ml @ 25 mls/hr IVPB Q8H [facility] Rx#: [id number] Magnesium Sulfate-D5w Pmx 300 1 gm In Dextrose/Water 1 100ml.bag @ 100 mls/hr IVPB Q1H [facility] Rx#: [id number] Mvi, Adult No.4 with Vit 360 270 K 10 ml Trace (Conc-1Ml/ Dose) 1 ml Sodium Acetate 30 meq Potassium Chloride 20 meq Calcium Gluconate 1 gm In Amino Acids 5 %/Dextrose 20 % 1 ,000 ml @ 30 mls/hr IV . Q24H [facility] Rx#:[id number] NORMAL SALINE PRESSURE 36 39 BAG Potassium Chloride 10 meq 100 In Water For Injection 1 100ml.bag @ 100 mls/hr IVPB Q1H [facility] Rx#: [id number] Potassium Chloride 20 meq 200 300 In Water For Injection 1 100ml.bag @ 50 mls/hr IVPB Q2H [facility] Rx#: [id number] Sodium Chloride 0.9% 1, 240 260 000 ml @ 20 mls/hr IV . Q24H [facility] Rx#:[id number] Sodium Phosphate 15 mmol 250 In Dextrose 5% in Water 250 ml @ 127.5 mls/hr IVPB ONCE ONE Rx#: [id number] Sodium Phosphate 30 mmol 250 In Dextrose 5% in Water 250 ml @ 65 mls/hr IVPB ONCE ONE Rx#:[id number] Vancomycin 1,500 mg In 500 Sodium Chloride 0.9% 500 ml 500 ml @ 167 mls/hr IVPB ONCE ONE Rx#: [id number] Intake, IV Titration 1291.753 570.408 90.729 Amount Mvi, Adult No.4 with Vit 703.5 K 10 ml Trace (Conc-1Ml/ Dose) 1 ml Sodium Acetate 30 meq Potassium Chloride 20 meq Calcium Gluconate 1 gm In Amino Acids 5 %/Dextrose 20 % 1 ,000 ml @ 30 mls/hr IV . Q24H [facility] Rx#:[id number] Norepinephrine 32 mg In 30.379 24.654 Sodium Chloride 0.9% 218 ml @ 0.08 MCG/KG/MIN 3. 653 mls/hr IV .Q24H [facility] Rx#:[id number] Vasopressin 60 unit In 128.52 Sodium Chloride 0.9% 150 ml @ 0.03 UNITS/MIN 4.59 mls/hr IV .Q24H [facility] Rx#: [id number] propofoL 1,000 mg In 429.354 545.754 90.729 Empty Bag 1 bag @ 15 MCG/ KG/MIN 8.573 mls/hr IV . [id number] [facility] Rx#:[id number] Output: Urine 1380 1655 Stool 1050 Other: Voiding Method Indwelling Catheter Indwelling Catheter ABP, PAP, CO, CI - Last Documented Arterial Blood Pressure 114/43 - Exam GENERAL DESCRIPTION: Middle-age man intubated on the vent RESPIRATORY SYSTEM: Unlabored breathing , decreased breath sounds at bases HEART: S1 S2 regular rate and rhythm , ABDOMEN: Soft , no tenderness EXTREMITIES: No edema feet - Labs CBC & Chem 7: 02/29/24 04:55 02/29/24 04:55 Labs: Abnormal Lab Results - Last 24 Hours (Table) 02/27/24 02/27/24 02/27/24 Range/Units 10:56 10:56 13:27 RBC 3.23 L (4.30-5.90) m/uL Hgb 8.6 L (13.0-17.5) gm/dL Hct 28.2 L (39.0-53.0) % MCHC 30.4 L (31.0-37.0) g/dL RDW 18.3 H (11.5-15.5) % ABG pO2 (83-108) mmHg ABG Total CO2 (19-24) mmol/L ABG O2 Saturation (94-97) % Hemoglobin (13.0-17.5) gm/dL Sodium 136 L (137-145) mmol/L Potassium 3.0 L (3.5-5.1) mmol/L Chloride 109 H (98-107) mmol/L Creatinine 0.38 L (0.66-1.25) mg/dL Glucose 142 H (74-99) mg/dL POC Glucose (mg/dL) 111 H (70-110) mg/dL Calcium (8.4-10.2) mg/dL Phosphorus 1.0 L* (2.5-4.5) mg/dL Magnesium (1.6-2.3) mg/dL Total Protein 6.1 L (6.3-8.2) g/dL Albumin 2.5 L (3.5-5.0) g/dL 02/27/24 02/27/24 02/27/24 Range/Units 18:01 20:16 20:16 RBC 3.05 L (4.30-5.90) m/uL Hgb 8.2 L (13.0-17.5) gm/dL Hct 26.6 L (39.0-53.0) % MCHC 30.8 L (31.0-37.0) g/dL RDW 18.3 H (11.5-15.5) % ABG pO2 (83-108) mmHg ABG Total CO2 (19-24) mmol/L ABG O2 Saturation (94-97) % Hemoglobin (13.0-17.5) gm/dL Sodium (137-145) mmol/L Potassium 2.9 L (3.5-5.1) mmol/L Chloride 114 H (98-107) mmol/L Creatinine 0.41 L (0.66-1.25) mg/dL Glucose (74-99) mg/dL POC Glucose (mg/dL) 112 H (70-110) mg/dL Calcium (8.4-10.2) mg/dL Phosphorus 2.2 L (2.5-4.5) mg/dL Magnesium 1.5 L (1.6-2.3) mg/dL Total Protein (6.3-8.2) g/dL Albumin (3.5-5.0) g/dL 02/27/24 02/28/24 02/28/24 Range/Units 23:54 05:45 05:45 RBC 3.09 L (4.30-5.90) m/uL Hgb 8.2 L (13.0-17.5) gm/dL Hct 27.3 L (39.0-53.0) % MCHC 29.8 L (31.0-37.0) g/dL RDW 18.2 H (11.5-15.5) % ABG pO2 (83-108) mmHg ABG Total CO2 (19-24) mmol/L ABG O2 Saturation (94-97) % Hemoglobin (13.0-17.5) gm/dL Sodium (137-145) mmol/L Potassium (3.5-5.1) mmol/L Chloride 114 H (98-107) mmol/L Creatinine 0.44 L (0.66-1.25) mg/dL Glucose 104 H (74-99) mg/dL POC Glucose (mg/dL) 118 H (70-110) mg/dL Calcium 8.2 L (8.4-10.2) mg/dL Phosphorus (2.5-4.5) mg/dL Magnesium (1.6-2.3) mg/dL Total Protein (6.3-8.2) g/dL Albumin (3.5-5.0) g/dL 02/28/24 Range/Units 06:10 RBC (4.30-5.90) m/uL Hgb (13.0-17.5) gm/dL Hct (39.0-53.0) % MCHC (31.0-37.0) g/dL RDW (11.5-15.5) % ABG pO2 255 H (83-108) mmHg ABG Total CO2 26 H (19-24) mmol/L ABG O2 Saturation >100.0 H (94-97) % Hemoglobin 8.3 L (13.0-17.5) gm/dL Sodium (137-145) mmol/L Potassium (3.5-5.1) mmol/L Chloride (98-107) mmol/L Creatinine (0.66-1.25) mg/dL Glucose (74-99) mg/dL POC Glucose (mg/dL) (70-110) mg/dL Calcium (8.4-10.2) mg/dL Phosphorus (2.5-4.5) mg/dL Magnesium (1.6-2.3) mg/dL Total Protein (6.3-8.2) g/dL Albumin (3.5-5.0) g/dL Microbiology - Last 24 Hours (Table) 02/26/24 03:28 Gram Stain - Final Sputum Sputum Culture - Final Pseudomonas aeruginosa 02/26/24 04:50 Blood Culture - Preliminary Blood 02/26/24 04:30 Blood Culture - Preliminary Blood Assessment and Plan (1) Pneumonia Current Visit: No Status: Acute Code(s): J18.9 - PNEUMONIA, UNSPECIFIED ORGANISM SNOMED Code(s): 525511490 (2) Sepsis Current Visit: No Status: Acute Code(s): A41.9 - SEPSIS, UNSPECIFIED ORGANISM SNOMED Code(s): 35670891 Plan: 1patient presented to hospital with sepsis in this patient who did have a low- grade fever elevated white count tachycardia meeting criteria for SIRS source likely pneumonia at this patient presenting with increasing shortness of breath cough with evidence of right-sided infiltrate, patient has been admitted to the hospital and will need to cover for resistant gram-positive as well as gram- negative 2-sputum currently growing Pseudomonas blood culture currently pending 3patient will be continued on cefepime to cover for the Pseudomonas however has no MRSA we will discontinue vancomycin Dictation was produced using [employer] dictation software. please excuse any grammatical, word or spelling errors. Time with Patient: Less than 30
--- NOTE | 2024-02-29 12:53 | P.PN ---
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 On today's evaluation that is 02/29/2024 patient did have a low-grade fever of 99.9 at 4 AM patient is afebrile since then, the patient is hemodynamically stable not requiring any pressor support patient remained stable on the vent FiO2 stable at 50% no significant purulent secretions in the ED or any changes reported. Patient white count is 4.1 creatinine 0.46 sputum is growing Pseudomonas blood culture negative Objective - Vital Signs Vital signs: Vital Signs Temp 99.4 F 02/29/24 12:00 Pulse 105 H 02/29/24 12:15 Resp 5 L 02/29/24 12:15 BP 139/71 02/29/24 09:15 Pulse Ox 94 L 02/29/24 12:15 FiO2 50 02/29/24 12:11 Intake & Output 02/28/24 02/29/24 02/29/24 18:59 06:59 18:59 Intake Total 1302.665 2304.484 993.540 Output Total 2100 1800 865 Balance -901.247 -478.516 128.540 Weight 96.7 kg 93.9 kg Intake: IV 758 741 813 Cefepime 2 gm In Sodium 100 175 125 Chloride 0.9% 100 ml @ 25 mls/hr IVPB Q8H [facility] Rx#: [id number] Magnesium Sulfate-D5w Pmx 100 1 gm In Dextrose/Water 1 100ml.bag @ 100 mls/hr IVPB ONCE ONE Rx#: [id number] Mvi, Adult No.4 with Vit 210 K 10 ml Trace (Conc-1Ml/ Dose) 1 ml Sodium Acetate 30 meq Potassium Chloride 20 meq Calcium Gluconate 1 gm In Amino Acids 5 %/Dextrose 20 % 1 ,000 ml @ 30 mls/hr IV . Q24H [facility] Rx#:[id number] Mvi, Adult No.4 with Vit 270 180 K 10 ml Trace (Conc-1Ml/ Dose) 1 ml Sodium Acetate 40 meq Potassium Acetate 20 meq Calcium Gluconate 1 gm Magnesium Sulfate gm 1 gm Potassium Phosphate 15 mmol In Amino Acids 5 %/Dextrose 20 % 1,000 ml @ 30 mls/hr IV .Q24H [facility] Rx#: [id number] NORMAL SALINE PRESSURE 33 36 18 BAG Potassium Chloride 10 meq 100 100 In Water For Injection 1 100ml.bag @ 100 mls/hr IVPB Q1H [facility] Rx#: [id number] Potassium Chloride 10 meq 200 In Water For Injection 1 100ml.bag @ 100 mls/hr IVPB Q1H [facility] Rx#: [id number] Sodium Chloride 0.9% 1, 315 260 90 000 ml @ 20 mls/hr IV . Q24H [facility] Rx#:[id number] Intake, IV Titration 440.753 580.484 180.540 Amount Norepinephrine 32 mg In 59.004 11.911 Sodium Chloride 0.9% 218 ml @ 0.08 MCG/KG/MIN 3. 653 mls/hr IV .Q24H [facility] Rx#:[id number] propofoL 1,000 mg In 440.753 521.480 168.629 Empty Bag 1 bag @ 15 MCG/ KG/MIN 8.573 mls/hr IV . [id number] [facility] Rx#:[id number] Output: Urine 2100 1250 265 Stool 450 Urine/Stool Mix 500 Oral Regurgitation 100 100 Other: Voiding Method Indwelling Catheter Indwelling Catheter Indwelling Catheter ABP, PAP, CO, CI - Last Documented Arterial Blood Pressure 125/52 - Exam GENERAL DESCRIPTION: Middle-age man intubated on the vent RESPIRATORY SYSTEM: Unlabored breathing , decreased breath sounds at bases HEART: S1 S2 regular rate and rhythm , ABDOMEN: Soft , no tenderness EXTREMITIES: No edema feet - Labs CBC & Chem 7: 02/29/24 04:55 02/29/24 04:55 Labs: Abnormal Lab Results - Last 24 Hours (Table) 02/28/24 02/29/24 02/29/24 Range/Units 17:35 04:55 04:55 RBC 2.97 L (4.30-5.90) m/uL Hgb 8.0 L (13.0-17.5) gm/dL Hct 26.3 L (39.0-53.0) % MCHC 30.3 L (31.0-37.0) g/dL RDW 18.4 H (11.5-15.5) % ABG pH (7.35-7.45) ABG pCO2 (35-45) mmHg ABG Total CO2 (19-24) mmol/L ABG O2 Saturation (94-97) % Hemoglobin (13.0-17.5) gm/dL Chloride (98-107) mmol/L Creatinine (0.66-1.25) mg/dL POC Glucose (mg/dL) 120 H (70-110) mg/dL Phosphorus 2.2 L (2.5-4.5) mg/dL Total Protein (6.3-8.2) g/dL Albumin (3.5-5.0) g/dL 02/29/24 02/29/24 Range/Units 04:55 05:07 RBC (4.30-5.90) m/uL Hgb (13.0-17.5) gm/dL Hct (39.0-53.0) % MCHC (31.0-37.0) g/dL RDW (11.5-15.5) % ABG pH 7.51 H (7.35-7.45) ABG pCO2 30 L (35-45) mmHg ABG Total CO2 25 H (19-24) mmol/L ABG O2 Saturation 99.3 H (94-97) % Hemoglobin 8.1 L (13.0-17.5) gm/dL Chloride 114 H (98-107) mmol/L Creatinine 0.46 L (0.66-1.25) mg/dL POC Glucose (mg/dL) (70-110) mg/dL Phosphorus (2.5-4.5) mg/dL Total Protein 6.2 L (6.3-8.2) g/dL Albumin 2.5 L (3.5-5.0) g/dL Microbiology - Last 24 Hours (Table) 02/26/24 04:50 Blood Culture - Preliminary Blood 02/26/24 04:30 Blood Culture - Preliminary Blood 02/26/24 03:28 Gram Stain - Final Sputum Sputum Culture - Final Pseudomonas aeruginosa Assessment and Plan (1) Pneumonia Current Visit: No Status: Acute Code(s): J18.9 - PNEUMONIA, UNSPECIFIED ORGANISM SNOMED Code(s): 097486515 (2) Sepsis Current Visit: No Status: Acute Code(s): A41.9 - SEPSIS, UNSPECIFIED ORGANISM SNOMED Code(s): 87705354 Plan: 1patient presented to hospital with sepsis in this patient who did have a low- grade fever elevated white count tachycardia meeting criteria for SIRS source likely pneumonia at this patient presenting with increasing shortness of breath cough with evidence of right-sided infiltrate, patient has been admitted to the hospital and will need to cover for resistant gram-positive as well as gram-neg ative 2-sputum currently growing Pseudomonas blood culture currently pending 3patient currently being treated with cefepime to cover for the Pseudomonas growing in the sputum and monitor clinical course closely Mother at the bedside questions answered Dictation was produced using [employer] dictation software. please excuse any grammatical, word or spelling errors.
[2024-02-29 19:00] LABS: Glucose,Whole Blood 99 mg/dL (70-110)
[2024-02-29 20:01] LABS: Glucose,Whole Blood 93 mg/dL (70-110)
--- NOTE | 2024-02-29 22:47 | P.PN ---
Subjective Progress Note Date: 02/29/24 This is a 48-year-old male who presented to the emergency department with increased shortness of breath and hypoxia with concerns of possible pneumonia. Patient was placed on nonrebreather and ultimately required BiPAP as patient chronically wears oxygen outpatient and became more obtunded and unresponsive requiring mechanical ventilation and was admitted to the ICU with hypoxia and concerns for pneumonia. Patient follows with Dr. Ivey in the outpatient setting with a significant past medical history of CVA, DVT, Crohn's, previous MRSA infections, right BKA and multiple hospitalizations. Patient is maintained on TPN outpatient for his chronic malnutrition secondary to Crohn's and was most recently hospitalized earlier this year requiring ICU admission and mechanical ventilation with continuous mucous plugging requiring multiple bronchoscopies. Blood pressures are also low requiring pressor support. Antibiotics were started with concerns of pneumonia. Procalcitonin ordered. Recommend infectious disease evaluation and appreciate input and recommendations as well. 02/27/2024 Patient is seen and evaluated in follow-up continues in the ICU on mechanical ventilation with no attempts at weaning today. Patient is off vasopressin although still requiring Levophed for extremely low blood pressures. Hemoglobin is stable above 8.6 and patient remains afebrile with no white count. Sodium is 136 with a potassium of 3.0, 0.38 creatinine and blood sugars being controlled. Phosphorus low on redraw at 1.0 along with magnesium being 1.6. Will replace phosphorus and potassium per protocol and also continue with TPN. Pharmacy and dietary to make adjustments on TPN and electrolytes. Preliminary Gram stain sputum culture showing Pseudomonas aeruginosa and blood cultures thus far have been negative. Chest x-ray today shows improving right perihilar and lower lobe infiltrate. Infectious disease following as well and patient is continued on cefepime along with vancomycin. 02/28/2024 Patient evaluated today in follow up remains in the ICU and on the mechanical ventilator with no attempts being made to wean today. Patient remains on IV cefepime with findings of pseudomonas in the sputum. Chest xray today reveals mild worsening right lower lobe infiltrate. Correlate for atelectasis or pneumonia. Patient remains on TPN at this time. White blood cell count remains normal at 5.2. Hemoglobin stable at 8.2. Sodium better at 3.8. Patient remains on levophed. 02/29/2024 Patient is evaluated today in follow up in the intensive care unit. Patient remains on the mechanical ventilator and did not tolerate attempts at weaning today. Levophed remains on hold as blood pressure is significantly improved. Chest xray today reveals more prominent small bilateral pleural effusions and associated bibasilar opacities could reflect acute infiltrate and or atelectasis. Correlate for fluid overload state. Patient continues on IV cefepime. Remains on TPN also. White blood cell count 4.1, hgb 8.0. Sodium 138, potassium 3.9, BUN 13, creatinine 0.46. REVIEW OF SYSTEMS: Unable to completely assess as patient is on mechanical ventilation and sedated The rest of the 14-point review of systems is negative. PHYSICAL EXAMINATION: GENERAL: The patient is currently on mechanical ventilation with an FiO2 of 50%, PEEP is 5. Well developed, appears older than stated age, ill-appearing, obese HEENT: Pupils are round and equally reacting to light. EOMI. No scleral icterus. No conjunctival pallor. Normocephalic, atraumatic. No pharyngeal erythema. No thyromegaly. CARDIOVASCULAR: S1 and S2 muffled, PULMONARY: Diminished breath sounds bilaterally with ventilator assist breathing, some bronchial congestion noted ABDOMEN: Soft, nontender, nondistended, normoactive bowel sounds. No palpable organomegaly. Ostomy noted MUSCULOSKELETAL: No joint swelling or deformity. EXTREMITIES: No cyanosis, clubbing, or pedal edema. Right BKA noted, diffusely weak currently on sedation NEUROLOGICAL: Gross neurological examination did not reveal any focal deficits. Unable to completely assess as patient is sedated SKIN: No rashes. Assessment: Shortness of breath, acute hypoxic respiratory failure requiring mechanical ventilation, likely secondary to recurrent mucous plugging with concerns of possible right lower lobe pneumonia Possible right lower lobe pneumonia, present on admission versus recurrent mucous plugging with atelectasis, procalcitonin is 0.63 Electrolyte abnormalities including low phosphorus and low potassium, being replaced per protocol Sepsis, present on admission secondary to above History of tracheobronchomalacia History of anemia History of CVA History of DVT and right BKA History of Crohn's disease with previous bowel perforation with colectomy and end ileostomy with chronic wounds with enterocutaneous fistulas Severe protein calorie malnutrition secondary to Crohn's and maintained on TPN outpatient History of previous tracheostomy with tracheal stenosis History of previous cardiac arrest in 2021 History of MRSA previously Former smoker Obesity with a BMI of 30.8 GI prophylaxis DVT prophylaxis Full code Plan: Patient continues in the ICU on mechanical ventilation and being weaned with no plans of extubation at this time, FiO2 has been reduced to 50% with a PEEP of 5 Patient continues in the ICU with pulmonary editor sound following. Antibiotics have been started with concerns of pneumonia and procalcitonin is mildly elevated at 0.63. Infectious disease following and patient is continued on cefepime and vancomycin Recommend frequent suctioning per pulmonary editor sound and monitor respiratory status closely for any further mucous plugging. Patient was recently hospitalized in the ICU for quite some time and underwent multiple br onchoscopies Continue local wound care and also consult ostomy nurse Follow-up on repeat labs and replace electrolytes per protocol Cardiology following with no acute changes in medications recommend to continue with telemetry monitoring Continue dietary and pharmacy to adjust TPN Due to multiple complex medical issues, overall prognosis is guarded CODE STATUS was addressed once again with family and they are adamant patient remains full code The impression and plan of care has been dictated by Coral Medina, Nurse Practitioner as directed. Dr. Mo MD I have performed a history and examination and MDM of this patient, discussed the same with the dictator, and agree with the dictator's assessment and plan as written ,documented as a scribe. Based on total visit time, I have performed more than 50% of the visit. Objective - Vital Signs Vital signs: Vital Signs Temp 99.4 F 02/29/24 12:00 Pulse 105 H 02/29/24 12:15 Resp 5 L 02/29/24 12:15 BP 139/71 02/29/24 09:15 Pulse Ox 94 L 02/29/24 12:15 FiO2 50 02/29/24 12:11 Intake & Output 02/28/24 02/29/24 02/29/24 18:59 06:59 18:59 Intake Total 7008.107 3162.484 998.589 Output Total 2100 1800 865 Balance -901.247 -478.516 133.589 Weight 96.7 kg 93.9 kg Intake: IV 758 741 813 Cefepime 2 gm In Sodium 100 175 125 Chloride 0.9% 100 ml @ 25 mls/hr IVPB Q8H [facility] Rx#: [id number] Magnesium Sulfate-D5w Pmx 100 1 gm In Dextrose/Water 1 100ml.bag @ 100 mls/hr IVPB ONCE ONE Rx#: [id number] Mvi, Adult No.4 with Vit 210 K 10 ml Trace (Conc-1Ml/ Dose) 1 ml Sodium Acetate 30 meq Potassium Chloride 20 meq Calcium Gluconate 1 gm In Amino Acids 5 %/Dextrose 20 % 1 ,000 ml @ 30 mls/hr IV . Q24H [facility] Rx#:[id number] Mvi, Adult No.4 with Vit 270 180 K 10 ml Trace (Conc-1Ml/ Dose) 1 ml Sodium Acetate 40 meq Potassium Acetate 20 meq Calcium Gluconate 1 gm Magnesium Sulfate gm 1 gm Potassium Phosphate 15 mmol In Amino Acids 5 %/Dextrose 20 % 1,000 ml @ 30 mls/hr IV .Q24H [facility] Rx#: [id number] NORMAL SALINE PRESSURE 33 36 18 BAG Potassium Chloride 10 meq 100 100 In Water For Injection 1 100ml.bag @ 100 mls/hr IVPB Q1H [facility] Rx#: [id number] Potassium Chloride 10 meq 200 In Water For Injection 1 100ml.bag @ 100 mls/hr IVPB Q1H [facility] Rx#: [id number] Sodium Chloride 0.9% 1, 315 260 90 000 ml @ 20 mls/hr IV . Q24H [facility] Rx#:[id number] Intake, IV Titration 440.753 580.484 185.589 Amount Norepinephrine 32 mg In 59.004 11.911 Sodium Chloride 0.9% 218 ml @ 0.08 MCG/KG/MIN 3. 653 mls/hr IV .Q24H [facility] Rx#:[id number] propofoL 1,000 mg In 440.753 521.480 173.678 Empty Bag 1 bag @ 15 MCG/ KG/MIN 8.573 mls/hr IV . [id number] [facility] Rx#:[id number] Output: Urine 2100 1250 265 Stool 450 Urine/Stool Mix 500 Oral Regurgitation 100 100 Other: Voiding Method Indwelling Catheter Indwelling Catheter Indwelling Catheter ABP, PAP, CO, CI - Last Documented Arterial Blood Pressure 125/52 - Labs CBC & Chem 7: 02/29/24 04:55 02/29/24 04:55 Labs: Abnormal Lab Results - Last 24 Hours (Table) 02/28/24 02/29/24 02/29/24 Range/Units 17:35 04:55 04:55 RBC 2.97 L (4.30-5.90) m/uL Hgb 8.0 L (13.0-17.5) gm/dL Hct 26.3 L (39.0-53.0) % MCHC 30.3 L (31.0-37.0) g/dL RDW 18.4 H (11.5-15.5) % ABG pH (7.35-7.45) ABG pCO2 (35-45) mmHg ABG Total CO2 (19-24) mmol/L ABG O2 Saturation (94-97) % Hemoglobin (13.0-17.5) gm/dL Chloride (98-107) mmol/L Creatinine (0.66-1.25) mg/dL POC Glucose (mg/dL) 120 H (70-110) mg/dL Phosphorus 2.2 L (2.5-4.5) mg/dL Total Protein (6.3-8.2) g/dL Albumin (3.5-5.0) g/dL 02/29/24 02/29/24 Range/Units 04:55 05:07 RBC (4.30-5.90) m/uL Hgb (13.0-17.5) gm/dL Hct (39.0-53.0) % MCHC (31.0-37.0) g/dL RDW (11.5-15.5) % ABG pH 7.51 H (7.35-7.45) ABG pCO2 30 L (35-45) mmHg ABG Total CO2 25 H (19-24) mmol/L ABG O2 Saturation 99.3 H (94-97) % Hemoglobin 8.1 L (13.0-17.5) gm/dL Chloride 114 H (98-107) mmol/L Creatinine 0.46 L (0.66-1.25) mg/dL POC Glucose (mg/dL) (70-110) mg/dL Phosphorus (2.5-4.5) mg/dL Total Protein 6.2 L (6.3-8.2) g/dL Albumin 2.5 L (3.5-5.0) g/dL Microbiology - Last 24 Hours (Table) 02/26/24 04:50 Blood Culture - Preliminary Blood 02/26/24 04:30 Blood Culture - Preliminary Blood 02/26/24 03:28 Gram Stain - Final Sputum Sputum Culture - Final Pseudomonas aeruginosa
[2024-02-29] MEDS: MVI, ADULT NO.4 WITH VIT K 10 ML, TRACE (CONC-1ML/DOSE) 1 ML, SODIUM ACETATE 30 MEQ, PO... IV SCH (23:53)
[2024-02-29 23:54] LABS: Glucose,Whole Blood 84 mg/dL (70-110)
--- NOTE | 2024-03-01 05:13 | XR ---
EXAMINATION TYPE: XR chest 1V portable DATE OF EXAM: 03/01/2024 CLINICAL HISTORY: Pleural effusion progress study. TECHNIQUE: Single AP portable semiupright view of the chest is obtained. COMPARISON: Chest x-ray from one day earlier FINDINGS: Stable endotracheal and orogastric tubes. Stable left-sided central venous catheter. Persistent right supraclavicular surgical clips. Persistent bibasilar opacities. Cardiac silhouette s ize stable and upper limits of normal. Osseous structures are intact. Cholecystectomy clips are noted . IMPRESSION: Persistent small bilateral pleural effusions and associated bibasilar acute infiltrate an d/or atelectasis. [facility], , 03/01/2024 5:11 AM
[2024-03-01 05:16] LABS: ABG Base Excess -6.5 mmol/L; ABG HCO3 16 mmol/L (21-25); ABG Oxygen Saturation 99.5 % (94-97); ABG PCO2 22 mmHg (35-45); ABG PH 7.48 (7.35-7.45); ABG PO2 111 mmHg (83-108); ABG TCO2 17 mmol/L (19-24); Allen Test Performed? Yes
[2024-03-01 05:30] LABS: Anisocytosis Slight; HCT 27.5 % (39.0-53.0); HGB 8.4 gm/dL (13.0-17.5); Hypochromasia Marked; MCH 26.8 pg (25.0-35.0); MCHC 30.7 g/dL (31.0-37.0); MCV 87.3 fL (80.0-100.0); Mean Platelet Volume 10.8; Platelet Count 184 k/uL (150-450); RBC 3.15 m/uL (4.30-5.90); RDW 18.1 % (11.5-15.5); WBC 5.2 k/uL (3.8-10.6)
[2024-03-01 06:03] LABS: Glucose,Whole Blood 90 mg/dL (70-110)
[2024-03-01 06:07] LABS: ALT 22 U/L (4-49); AST 40 U/L (17-59); African American GFR (CKD) >90 (>60 ml/min/1.73 sqM); Albumin 2.5 g/dL (3.5-5.0); Alkaline Phosphatase 78 U/L (38-126); Anion Gap 4 mmol/L; Blood Urea Nitrogen 13 mg/dL (9-20); Calcium 8.3 mg/dL (8.4-10.2); Carbon Dioxide 20 mmol/L (22-30); Chloride 112 mmol/L (98-107); Glucose 87 mg/dL (74-99); Magnesium 1.9 mg/dL (1.6-2.3); Non-African American GFR(CKD) >90 (>60 ml/min/1.73 sqM); Potassium 3.5 mmol/L (3.5-5.1); Sodium 136 mmol/L (137-145); Total Bilirubin 0.7 mg/dL (0.2-1.3); Total Protein 6.2 g/dL (6.3-8.2)
[2024-03-01] MEDS: POTASSIUM CHLORIDE 20 MEQ in WATER FOR INJECTION 1 100ML.BAG IVPB SCH (06:50)
[2024-03-01] MEDS: MAGNESIUM SULFATE-D5W PMX 1 GM in DEXTROSE/WATER 1 100ML.BAG IVPB ONE (06:50)
--- NOTE | 2024-03-01 11:36 | P.PN ---
Subjective Progress Note Date: 03/01/24 Patient is a 48-year-old male with complex past medical history including CVA, previous DVTs, right BKA, cardiac arrest in 2021, Crohn's disease, enterocutaneous fistulas, previous bowel resection, ventilator dependent respiratory failure, previous tracheostomy and reversal. Recently was admitted 12/13/2023 through 12/25/2023 for pneumonia and respiratory failure due to mucous plugging. He was intubated and placed on mechanical ventilator for approximately 6 days. He did have a bronchoscopy with BAL, microbiology positive for haemophilus influenza. Eventually, discharged home, and returned 01/02/24 for GIB from his ostomy. Was reintubated and did spend some time on the ventilator for reccurent pneumonia and mucous plugging. During this time, had multiple bronchoscopies with BAL, once on 12/31/2023 and again on 01/03/2024, isolated organisms including MRSA and Pseudomonas. Patient was eventually discharged back home on 01/16/2024. More recently, patient had an ER visit for increased work of breathing on February 22, and the patient was sent home. Returned for similar symptoms yesterday afternoon. Chest x-ray done on admission showing cardiomegaly with pulmonary vascular congestion and questionable right lower lobe infiltrate or effusion. CBC: WBC count 11.2, hemoglobin 10.5, hematocrit 37.3, platelets 315. CMP: Sodium 138, potassium 4.8, chloride 97, serum bicarb 39, BUN 23, creatinine 0.45, glucose 103. Lactic 1. LFTs unremarkable. Troponin less than 0.012. I am evaluating this patient emergency department, he is currently unresponsive, to even painful stimuli. He is on a 15 L nonrebreather. SpO2 88%. Diminished breath sounds on the right Will place this patient on BiPAP with initial settings 16/5 FiO2 to be titrated accordingly. Will get a stat ABG. We will repeat chest x-ray. I did talk to the patient's son, Alan, he is adamant that the patient remain a full code, would want the patient intubated if necessary. On reassessment in the emergency department, patient remained on BiPAP with settings 16/5 100%. He remains unresponsive to painful stimuli. Now only achieving tidal volumes ranging from 100 to 200 cc. Unfortunately, we were not able to to get an initial blood gas. I recommended that the patient be moved to the trauma bay and intubated by the [employer]. Follow-up chest x-ray showing the endotracheal tube in appropriate position above the avery. Orogastric tube coursing below the diaphragm. Initial ventilator settings include assist- control, respiratory rate 20, tidal volume 500, FiO2 100%, PEEP of 5. Currently, patient is fairly asynchronous with the ventilator and he is biting the tube. There are copious amounts of blood-tinged sputum in the ET tube. Elevated peak airway pressures of 45. Static pressure 32. The nurses are working on appropriately sedating the patient with propofol. Postintubation, the patient did become hypotensive, currently receiving his second liter of normal saline. Will also start the patient on norepinephrine to maintain a MAP of greater than 65 mmHg. I did insert a left femoral arterial line. Following this, we did obtain an ABG showing profound hypercapnic and hypoxic respiratory failure. PaO2 of 89, pCO2 98, pH of 7.11. Appropriate ventilator adjustments were made including increasing the rate to 26 and PEEP can be increased to 8. Patient may eventually need repeat bronchoscopy with BAL. Case will be discussed with Dr. Munoz. Patient is still waiting for a bed in the intensive care unit. I did call and update patient's son Alan about his change in clinical condition. 02/27/24 - Patient seen at bedside today, in the ICU. He is on day 3 of his hospital stay, admitted on 02/25/24 and in the ICU since 02/26/24. He remains mechanically ventilated intubated since 02/26/24. He remains on assist-control with a rate of 26, volume 500, FiO2 50% (down from 60%) and a PEEP of 8. ABG done today (on 60% FiO2) showed pO2 126, pCO2 35, pH is 7.50, indicating a mixed respiratory and metabolic alkalosis. Abnormality shown on the patient's lab this morning, inconsistent and drastic changes from previous labs. Will perform a redraw today to get a better idea on how the labs are changed. He remains on vasopressin 0.03 units/min, Levophed at 0.07 mcg/kg/min (6.8 mcg/min), propofol 75 mcg/kg/min, receiving TPN at 30 cc/h (which is goal). Patient's blood pressure today 131/53. Additionally, patient receiving cefepime and vancomycin secondary to leukocytosis and a Tmax on 02/26/24 of 100.5 F. Sputum culture currently pending. Chest x-ray from this morning showed improving right perihilar and lower lobe infiltrate. Additionally, patient is currently receiving TPN (Clinimix) at 30 cc/h which is goal for dietitian. 02/28/24 - Patient seen at bedside today, in the ICU. He is on day 4 of his hospital stay, admitted on 02/25/24 and in the ICU since 02/26/24. He remains intubated and mechanically ventilated since 02/26/24. He remains on assist- control with a rate of 25, [place] 500, FiO2 40% and PEEP of 8. ABG done today (while on 100% FiO2) showed pO2 255, pCO2 37, pH 7.44 indicating slight respiratory alkalosis. The abnormalities noted on the patient's labs from yesterday were rechecked on a couple of occasion and seem to be accurate. This morning labs showed WBC 5.2, hemoglobin 8.2, sodium 139, potassium 3.8, chloride 114, BUN 10, creatinine 0.44, calcium 8.2, phosphorus 2.6, magnesium 2.0. Patient received supplementation with sodium phosphate, potassium chloride and magnesium sulfate. He remains on Levophed 0.07 mcg/kg/min (7 mcg/min), propofol 75 mcg/kg/min, normal saline at 30 cc/h and TPN at 30 cc/h (which is goal). Additionally, patient remains on cefepime and vancomycin; sputum culture is fi nal for Pseudomonas aeruginosa that any resistance. Blood cultures continue to be pending at this time. Chest x-ray from this morning continue show right lower lobe infiltrate. 02/29/24 - Patient seen at bedside today, in the ICU. He is on day 5 of his hospital stay, admitted on 02/25/24 and then the ICU since 02/26/24. He remains intubated mechanically ventilated since 02/26/24. He remains on assist-control with a rate of 26, volume 500, FiO2 50%, PEEP of 8. ABG completed today showed pO2 96, pCO2 30, pH 7.51 indicating a respiratory and metabolic alkalosis. On labs drawn today patient's WBC is 4.1, hemoglobin 8.0, sodium 138, chloride 114, potassium 3.9, BUN 13, creatinine 0.46, phosphorus 2.2, magnesium 1.9. Patient received 1 g magnesium sulfate this morning and 15 mmol sodium phosphate. He remains on propofol 75 mcg/mg/min, Levophed at 0.03 mcg/kg/min (~3 mcg/min) and TPN at 30 cc/h (which is goal). He remains on 0.9% normal saline at 20 cc/h, and cefepime 2 g every 8 hours. Blood cultures remain pending at this time. Chest x-ray shows more prominent small bilateral pleural effusions and associated bibasilar opacities. The patient is seen today March 01, 2024 in follow-up on the regular medical floor. He remains intubated on the mechanical ventilator and assist-control mode with a rate of 26, tidal volume 500, FiO2 50% and a PEEP of 8. Morning blood gases revealed a PaO2 111, pCO2 22 and a pH of 7.48. He is currently on propofol at 55 mcg/kg/min. Receiving TPN at 30 mL/h. Normal saline at KVO. He remains on cefepime for pseudomonal bronchial infection. White count 5.2. Hemoglobin 8.4. Platelets 184. Sodium 136. Potassium 3.5. Bicarb 20. BUN 13. Creatinine 0.53. Glucose 87. He is afebrile. Hemodynamically stable. Chest x-ray reveals persistent small bilateral effusions. He is continued on DuoNebs. Lovenox for DVT prophylaxis. Objective - Vital Signs Vital signs: Vital Signs Temp 99.3 F 03/01/24 08:00 Pulse 98 03/01/24 11:22 Resp 26 H 03/01/24 10:00 BP 139/71 03/01/24 09:15 Pulse Ox 100 03/01/24 10:00 FiO2 50 03/01/24 10:46 Intake & Output 02/29/24 03/01/24 03/01/24 18:59 06:59 18:59 Intake Total 1407.688 710.260 200.429 Output Total 1835 460 150 Balance -427.312 250.260 50.429 Intake: IV 1101 384 99 Cefepime 2 gm In Sodium 125 Chloride 0.9% 100 ml @ 25 mls/hr IVPB Q8H [facility] Rx#: [id number] Magnesium Sulfate-D5w Pmx 100 1 gm In Dextrose/Water 1 100ml.bag @ 100 mls/hr IVPB ONCE ONE Rx#: [id number] Mvi, Adult No.4 with Vit 300 90 K 10 ml Trace (Conc-1Ml/ Dose) 1 ml Sodium Acetate 30 meq Potassium Acetate 40 meq Calcium Gluconate 1 gm Magnesium Sulfate gm 1 gm Potassium Phosphate 24 mmol In Amino Acids 5 %/Dextrose 20 % 1,000 ml @ 30 mls/hr IV .Q24H [facility] Rx#: [id number] Mvi, Adult No.4 with Vit 360 30 K 10 ml Trace (Conc-1Ml/ Dose) 1 ml Sodium Acetate 40 meq Potassium Acetate 20 meq Calcium Gluconate 1 gm Magnesium Sulfate gm 1 gm Potassium Phosphate 15 mmol In Amino Acids 5 %/Dextrose 20 % 1,000 ml @ 30 mls/hr IV .Q24H [facility] Rx#: [id number] NORMAL SALINE PRESSURE 36 39 9 BAG Potassium Chloride 10 meq 100 In Water For Injection 1 100ml.bag @ 100 mls/hr IVPB Q1H [facility] Rx#: [id number] Potassium Chloride 10 meq 200 In Water For Injection 1 100ml.bag @ 100 mls/hr IVPB Q1H [facility] Rx#: [id number] Sodium Chloride 0.9% 1, 180 15 000 ml @ 20 mls/hr IV . Q24H [facility] Rx#:[id number] Intake, IV Titration 306.688 326.260 101.429 Amount Norepinephrine 32 mg In 11.911 Sodium Chloride 0.9% 218 ml @ 0.08 MCG/KG/MIN 3. 653 mls/hr IV .Q24H [facility] Rx#:[id number] propofoL 1,000 mg In 294.777 326.260 101.429 Empty Bag 1 bag @ 15 MCG/ KG/MIN 8.573 mls/hr IV . [id number] [facility] Rx#:[id number] Output: Urine 535 460 150 Stool 700 Urine/Stool Mix 500 Oral Regurgitation 100 Other: Voiding Method Indwelling Catheter Indwelling Catheter Indwelling Catheter ABP, PAP, CO, CI - Last Documented Arterial Blood Pressure 112/44 - Exam GENERAL: A 48-year-old male patient, currently intubated mechanically ventilated and sedated. HEENT: No scleral icterus. No conjunctival pallor. Normocephalic, atraumatic. CARDIOVASCULAR: S1 and S2 present. No murmurs, rubs, or gallops. PULMONARY: Diminished breath sounds were bilaterally. ABDOMEN: Soft, nontender, nondistended, normoactive bowel sounds. No palpable organomegaly. Functioning ileostomy. MUSCULOSKELETAL: No joint swelling or deformity. EXTREMITIES: No cyanosis, clubbing, or pedal edema. NEUROLOGICAL: Unable to fully assess the patient has intubated mechanically ventilated and sedated. SKIN: No rashes. Left chest PICC line. - Labs CBC & Chem 7: 03/01/24 05:15 03/01/24 05:15 Labs: Abnormal Lab Results - Last 24 Hours (Table) 03/01/24 03/01/24 03/01/24 Range/Units 05:13 05:15 05:15 RBC 3.15 L (4.30-5.90) m/uL Hgb 8.4 L (13.0-17.5) gm/dL Hct 27.5 L (39.0-53.0) % MCHC 30.7 L (31.0-37.0) g/dL RDW 18.1 H (11.5-15.5) % ABG pH 7.48 H (7.35-7.45) ABG pCO2 22 L (35-45) mmHg ABG pO2 111 H (83-108) mmHg ABG HCO3 16 L (21-25) mmol/L ABG Total CO2 17 L (19-24) mmol/L ABG O2 Saturation 99.5 H (94-97) % Hemoglobin 6.4 L* (13.0-17.5) gm/dL Sodium 136 L (137-145) mmol/L Chloride 112 H (98-107) mmol/L Carbon Dioxide 20 L (22-30) mmol/L Creatinine 0.53 L (0.66-1.25) mg/dL Calcium 8.3 L (8.4-10.2) mg/dL Total Protein 6.2 L (6.3-8.2) g/dL Albumin 2.5 L (3.5-5.0) g/dL Microbiology - Last 24 Hours (Table) 02/26/24 04:50 Blood Culture - Preliminary Blood 02/26/24 04:30 Blood Culture - Preliminary Blood Assessment and Plan Assessment: Acute hypoxic and hypercapnic respiratory failure, requiring mechanical intubation on 02/26/24 Recent history of recurrent ventilator dependent respiratory failure, secondary to pneumonia and mucous plugging Cardiogenic shock secondary to sepsis/respiratory failure Sepsis secondary to above Leukocytosis, resolved Hx of Crohn's disease, with previous complication of bowel perforation s/p colectomy and diverting ileostomy Hyperphosphatemia, resolved Hypokalemia, resolved Hyponatremia, resolved Hypophosphatemia, resolved Hypomagnesemia, resolved Previous tracheostomy and reversal, with tracheal stenosis Tracheobronchomalacia History of DVT, on therapeutic dose of Lovenox CVA/TIA, with residual left-sided weakness Right BKA Cardiac arrest in 2021 Plan: The patient was seen and evaluated Chest x-ray, ABGs, labs and medications reviewed We will plan for daily interruption of sedation Obtain weaning parameters on pressure support of 8 and CPAP Continue cefepime Continue TPN Continue bronchodilators Lovenox for DVT prophylaxis We will continue to follow I have personally seen and examined the patient, performed the documentation and the assessment and plan as written. Number of minutes spent on the visit: 15 Dictation was produced using [employer] dictation software. Please excuse any grammatical, word or spelling errors.
[2024-03-01 12:43] LABS: Glucose,Whole Blood 102 mg/dL (70-110)
[2024-03-01 14:15] LABS: ABG Base Excess -5.6 mmol/L; ABG HCO3 23 mmol/L (21-25); ABG Oxygen Saturation 94.6 % (94-97); ABG PCO2 58 mmHg (35-45); ABG PO2 88 mmHg (83-108); ABG TCO2 24 mmol/L (19-24); Allen Test Performed? Yes
--- NOTE | 2024-03-01 14:19 | P.PN ---
Subjective Progress Note Date: 03/01/24 Principal diagnosis: Reason for follow-up is pneumonia Patient is a 48-year-old male with a past medical history significant for CVA TIA DVT bones disease multiple abdominal surgeries did have a enterocutaneous fistula recent admission for pneumonia has been brought to the hospital with worsening shortness of with hypoxemia patient did have worsening respiratory status requiring intubation and admission to the ICU. On today's evaluation that is 03/01/2024, Patient fever pattern has improved he did have a low-grade fever of 99.7 at midnight and 99.6 at noon patient has been extubated he is breathing comfortably on nasal cannula oxygen still complaining of weakness and shortness of breath no chest pain no worsening cough no abdominal pain or diarrhea. Patient white count normal at 5.2, creatinine is 0.53 blood culture has been negative sputum with Pseudomonas Objective - Vital Signs Vital signs: Vital Signs Temp 99.6 F 03/01/24 12:00 Pulse 112 H 03/01/24 13:15 Resp 25 H 03/01/24 13:15 BP 156/73 03/01/24 13:15 Pulse Ox 93 L 03/01/24 13:15 FiO2 50 03/01/24 13:14 Intake & Output 02/29/24 03/01/24 03/01/24 18:59 06:59 18:59 Intake Total 1407.688 710.260 366.429 Output Total 1835 460 310 Balance -427.312 250.260 56.429 Intake: IV 1101 384 165 Cefepime 2 gm In Sodium 125 Chloride 0.9% 100 ml @ 25 mls/hr IVPB Q8H [facility] Rx#: [id number] Magnesium Sulfate-D5w Pmx 100 1 gm In Dextrose/Water 1 100ml.bag @ 100 mls/hr IVPB ONCE ONE Rx#: [id number] Mvi, Adult No.4 with Vit 300 150 K 10 ml Trace (Conc-1Ml/ Dose) 1 ml Sodium Acetate 30 meq Potassium Acetate 40 meq Calcium Gluconate 1 gm Magnesium Sulfate gm 1 gm Potassium Phosphate 24 mmol In Amino Acids 5 %/Dextrose 20 % 1,000 ml @ 30 mls/hr IV .Q24H [facility] Rx#: [id number] Mvi, Adult No.4 with Vit 360 30 K 10 ml Trace (Conc-1Ml/ Dose) 1 ml Sodium Acetate 40 meq Potassium Acetate 20 meq Calcium Gluconate 1 gm Magnesium Sulfate gm 1 gm Potassium Phosphate 15 mmol In Amino Acids 5 %/Dextrose 20 % 1,000 ml @ 30 mls/hr IV .Q24H [facility] Rx#: [id number] NORMAL SALINE PRESSURE 36 39 15 BAG Potassium Chloride 10 meq 100 In Water For Injection 1 100ml.bag @ 100 mls/hr IVPB Q1H [facility] Rx#: [id number] Potassium Chloride 10 meq 200 In Water For Injection 1 100ml.bag @ 100 mls/hr IVPB Q1H [facility] Rx#: [id number] Sodium Chloride 0.9% 1, 180 15 000 ml @ 20 mls/hr IV . Q24H [facility] Rx#:[id number] Intake, IV Titration 306.688 326.260 201.429 Amount Norepinephrine 32 mg In 11.911 Sodium Chloride 0.9% 218 ml @ 0.08 MCG/KG/MIN 3. 653 mls/hr IV .Q24H [facility] Rx#:[id number] Potassium Chloride 20 meq 100 In Water For Injection 1 100ml.bag @ 50 mls/hr IVPB Q2H [facility] Rx#: [id number] propofoL 1,000 mg In 294.777 326.260 101.429 Empty Bag 1 bag @ 15 MCG/ KG/MIN 8.573 mls/hr IV . [id number] [facility] Rx#:[id number] Output: Urine 535 460 310 Stool 700 Urine/Stool Mix 500 Oral Regurgitation 100 Other: Voiding Method Indwelling Catheter Indwelling Catheter Indwelling Catheter ABP, PAP, CO, CI - Last Documented Arterial Blood Pressure 175/55 - Exam GENERAL DESCRIPTION: Middle-age man lying in bed in no distress RESPIRATORY SYSTEM: Unlabored breathing , coarse breath sounds bilaterally HEART: S1 S2 regular rate and rhythm , ABDOMEN: Soft , no tenderness EXTREMITIES: No edema feet - Labs CBC & Chem 7: 03/01/24 05:15 03/01/24 12:40 Labs: Abnormal Lab Results - Last 24 Hours (Table) 03/01/24 03/01/24 03/01/24 Range/Units 05:13 05:15 05:15 RBC 3.15 L (4.30-5.90) m/uL Hgb 8.4 L (13.0-17.5) gm/dL Hct 27.5 L (39.0-53.0) % MCHC 30.7 L (31.0-37.0) g/dL RDW 18.1 H (11.5-15.5) % ABG pH 7.48 H (7.35-7.45) ABG pCO2 22 L (35-45) mmHg ABG pO2 111 H (83-108) mmHg ABG HCO3 16 L (21-25) mmol/L ABG Total CO2 17 L (19-24) mmol/L ABG O2 Saturation 99.5 H (94-97) % Hemoglobin 6.4 L* (13.0-17.5) gm/dL Sodium 136 L (137-145) mmol/L Chloride 112 H (98-107) mmol/L Carbon Dioxide 20 L (22-30) mmol/L Creatinine 0.53 L (0.66-1.25) mg/dL Calcium 8.3 L (8.4-10.2) mg/dL Total Protein 6.2 L (6.3-8.2) g/dL Albumin 2.5 L (3.5-5.0) g/dL Microbiology - Last 24 Hours (Table) 02/26/24 04:50 Blood Culture - Preliminary Blood 02/26/24 04:30 Blood Culture - Preliminary Blood Assessment and Plan (1) Pneumonia Current Visit: No Status: Acute Code(s): J18.9 - PNEUMONIA, UNSPECIFIED ORGANISM SNOMED Code(s): 636530567 (2) Sepsis Current Visit: No Status: Acute Code(s): A41.9 - SEPSIS, UNSPECIFIED ORGANISM SNOMED Code(s): 08848040 Plan: 1patient presented to hospital with sepsis in this patient who did have a low- grade fever elevated white count tachycardia meeting criteria for SIRS source likely pneumonia at this patient presenting with increasing shortness of breath cough with evidence of right-sided infiltrate, patient has been admitted to the hospital and will need to cover for resistant gram-positive as well as gram- negative 2-sputum currently growing Pseudomonas blood culture so far negative 3patient did have resolution of his fever white normal patient has been extubated, the patient will be treated cefepime to cover for the Pseudomonas growing in the sputum. Mother at the bedside questions answered Dictation was produced using [employer] dictation software. please excuse any grammatical, word or spelling errors. Time with Patient: Less than 30
--- NOTE | 2024-03-01 15:20 | XR ---
EXAMINATION TYPE: XR chest 1V portable DATE OF EXAM: 03/01/2024 3:03 PM COMPARISON: Previous chest radiograph dated 03/01/2004. CLINICAL INDICATION: Male, 48 years old with history of post et tube insertion; [facility] TECHNIQUE: XR chest 1V portable Frontal view of the chest. FINDINGS: Cardiomegaly. Postsurgical clips again noted near the right thoracic inlet. Left-sided dialysis catheter with distal tip of catheter terminating at the cavoatrial junction. Endotracheal tube terminates roughly 4.8 cm above the avery. Low lung volumes. Possible mild bilateral pleural effusions and adjacent lower lobe atelectasis, not significantly gibbons ged from recent study. No pneumothorax. IMPRESSION: No significant interval changes from most recent prior study. [facility], , 03/01/2024 3:17 PM
[2024-03-01 16:12] LABS: ABG Base Excess -1.8 mmol/L; ABG HCO3 22 mmol/L (21-25); ABG Oxygen Saturation 94.2 % (94-97); ABG PCO2 32 mmHg (35-45); ABG PH 7.44 (7.35-7.45); ABG PO2 66 mmHg (83-108); ABG TCO2 23 mmol/L (19-24); Allen Test Performed? Yes
[2024-03-01 18:16] LABS: Glucose,Whole Blood 92 mg/dL (70-110)
--- NOTE | 2024-03-01 18:43 | P.PN ---
Subjective Progress Note Date: 03/01/24 This is a 48-year-old male who presented to the emergency department with increased shortness of breath and hypoxia with concerns of possible pneumonia. Patient was placed on nonrebreather and ultimately required BiPAP as patient chronically wears oxygen outpatient and became more obtunded and unresponsive requiring mechanical ventilation and was admitted to the ICU with hypoxia and concerns for pneumonia. Patient follows with Dr. Ivey in the outpatient setting with a significant past medical history of CVA, DVT, Crohn's, previous MRSA infections, right BKA and multiple hospitalizations. Patient is maintained on TPN outpatient for his chronic malnutrition secondary to Crohn's and was most recently hospitalized earlier this year requiring ICU admission and mechanical ventilation with continuous mucous plugging requiring multiple bronchoscopies. Blood pressures are also low requiring pressor support. Antibiotics were started with concerns of pneumonia. Procalcitonin ordered. Recommend infectious disease evaluation and appreciate input and recommendations as well. 02/27/2024 Patient is seen and evaluated in follow-up continues in the ICU on mechanical ventilation with no attempts at weaning today. Patient is off vasopressin although still requiring Levophed for extremely low blood pressures. Hemoglobin is stable above 8.6 and patient remains afebrile with no white count. Sodium is 136 with a potassium of 3.0, 0.38 creatinine and blood sugars being controlled. Phosphorus low on redraw at 1.0 along with magnesium being 1.6. Will replace phosphorus and potassium per protocol and also continue with TPN. Pharmacy and dietary to make adjustments on TPN and electrolytes. Preliminary Gram stain sputum culture showing Pseudomonas aeruginosa and blood cultures thus far have been negative. Chest x-ray today shows improving right perihilar and lower lobe infiltrate. Infectious disease following as well and patient is continued on cefepime along with vancomycin. 02/28/2024 Patient evaluated today in follow up remains in the ICU and on the mechanical ventilator with no attempts being made to wean today. Patient remains on IV cefepime with findings of pseudomonas in the sputum. Chest xray today reveals mild worsening right lower lobe infiltrate. Correlate for atelectasis or pneumonia. Patient remains on TPN at this time. White blood cell count remains normal at 5.2. Hemoglobin stable at 8.2. Sodium better at 3.8. Patient remains on levophed. 02/29/2024 Patient is evaluated today in follow up in the intensive care unit. Patient remains on the mechanical ventilator and did not tolerate attempts at weaning today. Levophed remains on hold as blood pressure is significantly improved. Chest xray today reveals more prominent small bilateral pleural effusions and associated bibasilar opacities could reflect acute infiltrate and or atelectasis. Correlate for fluid overload state. Patient continues on IV cefepime. Remains on TPN also. White blood cell count 4.1, hgb 8.0. Sodium 138, potassium 3.9, BUN 13, creatinine 0.46. 03/01/2024 Patient is eval today in the intensive care unit. Chest x-ray today reveals persistent small bilateral pleural effusions and associated bibasilar acute infiltrate and/or atelectasis. Blood gases are improved. Sedation remains on hold and patient is awake alert and responsive. He remains on the mechanical ventilator. Remains on IV cefepime. Patient is also maintained on TPN. White blood cell count 5.2, hemoglobin 8.4, sodium 136, potassium 4.6, BUN of 13 creatinine 0.53. REVIEW OF SYSTEMS: Unable to completely assess as patient is on mechanical ventilation and sedated The rest of the 14-point review of systems is negative. PHYSICAL EXAMINATION: GENERAL: The patient is currently on mechanical ventilation with an FiO2 of 50%, PEEP is 5. Well developed, appears older than stated age, ill-appearing, obese HEENT: Pupils are round and equally reacting to light. EOMI. No scleral icterus. No conjunctival pallor. Normocephalic, atraumatic. No pharyngeal erythema. No thyromegaly. CARDIOVASCULAR: S1 and S2 muffled, PULMONARY: Diminished breath sounds bilaterally with ventilator assist breathing, some bronchial congestion noted ABDOMEN: Soft, nontender, nondistended, normoactive bowel sounds. No palpable organomegaly. Ostomy noted MUSCULOSKELETAL: No joint swelling or deformity. EXTREMITIES: No cyanosis, clubbing, or pedal edema. Right BKA noted, diffusely weak currently on sedation NEUROLOGICAL: Gross neurological examination did not reveal any focal deficits. Unable to completely assess as patient is sedated SKIN: No rashes. Assessment: Shortness of breath, acute hypoxic respiratory failure requiring mechanical ventilation, likely secondary to recurrent mucous plugging with concerns of possible right lower lobe pneumonia Possible right lower lobe pneumonia, present on admission versus recurrent mucous plugging with atelectasis, procalcitonin is 0.63 Electrolyte abnormalities including low phosphorus and low potassium, being replaced per protocol Sepsis, present on admission secondary to above History of tracheobronchomalacia History of anemia History of CVA History of DVT and right BKA History of Crohn's disease with previous bowel perforation with colectomy and end ileostomy with chronic wounds with enterocutaneous fistulas Severe protein calorie malnutrition secondary to Crohn's and maintained on TPN outpatient History of previous tracheostomy with tracheal stenosis History of previous cardiac arrest in 2021 History of MRSA previously Former smoker Obesity with a BMI of 30.8 GI prophylaxis DVT prophylaxis Full code Plan: Patient continues in the ICU on mechanical ventilation and being weaned with no plans of extubation at this time, FiO2 has been reduced to 50% with a PEEP of 5 Patient continues in the ICU with pulmonary systems spec following. Antibiotics have been started with concerns of pneumonia and procalcitonin is mildly elevated at 0.63. Infectious disease following and patient is continued on cefepime Recommend frequent suctioning per pulmonary systems spec and monitor respiratory status closely for any further mucous plugging. Patient was recently hospitalized in the ICU for quite some time and underwent multiple bronchoscopies Continue local wound care and also consult ostomy nurse Follow-up on repeat labs and replace electrolytes per protocol Cardiology following with no acute changes in medications recommend to continue with telemetry monitoring Continue dietary and pharmacy to adjust TPN Due to multiple complex medical issues, overall prognosis is guarded CODE STATUS was addressed once again with family and they are adamant patient remains full code The impression and plan of care has been dictated by Coral Medina Nurse Practitioner as directed. Dr. Mo MD I have performed a history and examination and MDM of this patient, discussed the same with the dictator, and agree with the dictator's assessment and plan as written ,documented as a scribe. Based on total visit time, I have performed more than 50% of the visit. Objective - Vital Signs Vital signs: Vital Signs Temp 99.6 F 03/01/24 04:00 Pulse 80 03/01/24 07:59 Resp 26 H 03/01/24 07:00 BP 139/71 03/01/24 06:30 Pulse Ox 99 03/01/24 07:00 FiO2 50 03/01/24 07:50 Intake & Output 02/29/24 03/01/24 03/01/24 18:59 06:59 18:59 Intake Total 1407.688 710.260 33 Output Total 1835 460 60 Balance -427.312 250.260 -27 Intake: IV 1101 384 33 Cefepime 2 gm In Sodium 125 Chloride 0.9% 100 ml @ 25 mls/hr IVPB Q8H [facility] Rx#: [id number] Magnesium Sulfate-D5w Pmx 100 1 gm In Dextrose/Water 1 100ml.bag @ 100 mls/hr IVPB ONCE ONE Rx#: [id number] Mvi, Adult No.4 with Vit 300 30 K 10 ml Trace (Conc-1Ml/ Dose) 1 ml Sodium Acetate 30 meq Potassium Acetate 40 meq Calcium Gluconate 1 gm Magnesium Sulfate gm 1 gm Potassium Phosphate 24 mmol In Amino Acids 5 %/Dextrose 20 % 1,000 ml @ 30 mls/hr IV .Q24H [facility] Rx#: [id number] Mvi, Adult No.4 with Vit 360 30 K 10 ml Trace (Conc-1Ml/ Dose) 1 ml Sodium Acetate 40 meq Potassium Acetate 20 meq Calcium Gluconate 1 gm Magnesium Sulfate gm 1 gm Potassium Phosphate 15 mmol In Amino Acids 5 %/Dextrose 20 % 1,000 ml @ 30 mls/hr IV .Q24H [facility] Rx#: [id number] NORMAL SALINE PRESSURE 36 39 3 BAG Potassium Chloride 10 meq 100 In Water For Injection 1 100ml.bag @ 100 mls/hr IVPB Q1H [facility] Rx#: [id number] Potassium Chloride 10 meq 200 In Water For Injection 1 100ml.bag @ 100 mls/hr IVPB Q1H [facility] Rx#: [id number] Sodium Chloride 0.9% 1, 180 15 000 ml @ 20 mls/hr IV . Q24H [facility] Rx#:[id number] Intake, IV Titration 306.688 326.260 Amount Norepinephrine 32 mg In 11.911 Sodium Chloride 0.9% 218 ml @ 0.08 MCG/KG/MIN 3. 653 mls/hr IV .Q24H [facility] Rx#:[id number] propofoL 1,000 mg In 294.777 326.260 Empty Bag 1 bag @ 15 MCG/ KG/MIN 8.573 mls/hr IV . [id number] [facility] Rx#:[id number] Output: Urine 535 460 60 Stool 700 Urine/Stool Mix 500 Oral Regurgitation 100 Other: Voiding Method Indwelling Catheter Indwelling Catheter ABP, PAP, CO, CI - Last Documented Arterial Blood Pressure 97/46 - Labs CBC & Chem 7: 03/01/24 05:15 03/01/24 12:40 Labs: Abnormal Lab Results - Last 24 Hours (Table) 03/01/24 03/01/24 03/01/24 Range/Units 05:13 05:15 05:15 RBC 3.15 L (4.30-5.90) m/uL Hgb 8.4 L (13.0-17.5) gm/dL Hct 27.5 L (39.0-53.0) % MCHC 30.7 L (31.0-37.0) g/dL RDW 18.1 H (11.5-15.5) % ABG pH 7.48 H (7.35-7.45) ABG pCO2 22 L (35-45) mmHg ABG pO2 111 H (83-108) mmHg ABG HCO3 16 L (21-25) mmol/L ABG Total CO2 17 L (19-24) mmol/L ABG O2 Saturation 99.5 H (94-97) % Hemoglobin 6.4 L* (13.0-17.5) gm/dL Sodium 136 L (137-145) mmol/L Chloride 112 H (98-107) mmol/L Carbon Dioxide 20 L (22-30) mmol/L Creatinine 0.53 L (0.66-1.25) mg/dL Calcium 8.3 L (8.4-10.2) mg/dL Total Protein 6.2 L (6.3-8.2) g/dL Albumin 2.5 L (3.5-5.0) g/dL Microbiology - Last 24 Hours (Table) 02/26/24 04:50 Blood Culture - Preliminary Blood 02/26/24 04:30 Blood Culture - Preliminary Blood Assessment and Plan Time with Patient: Less than 30
[2024-03-01] MEDS: MVI, ADULT NO.4 WITH VIT K 10 ML, TRACE (CONC-1ML/DOSE) 1 ML, SODIUM ACETATE 40 MEQ, PO... IV SCH (23:18)
[2024-03-01 23:58] LABS: Glucose,Whole Blood 105 mg/dL (70-110)
[2024-03-02 04:16] LABS: Anisocytosis Slight; Basophils % (A) 0 %; Eosinophils # (A) 0.3 k/uL (0-0.7); Eosinophils % (A) 4 %; HCT 30.6 % (39.0-53.0); HGB 9.2 gm/dL (13.0-17.5); Hypochromasia Marked; Lymphocytes # (A) 1.5 k/uL (1.0-4.8); Lymphocytes % (A) 23 %; MCH 26.2 pg (25.0-35.0); MCHC 30.1 g/dL (31.0-37.0); MCV 87.1 fL (80.0-100.0); Mean Platelet Volume 9.2; Monocytes # (A) 0.3 k/uL (0-1.0); Monocytes % (A) 4 %; Neutrophils # (A) 4.2 k/uL (1.3-7.7); Neutrophils % (A) 66 %; Platelet Count 197 k/uL (150-450); RBC 3.52 m/uL (4.30-5.90); RDW 17.6 % (11.5-15.5); WBC 6.3 k/uL (3.8-10.6)
[2024-03-02 04:27] LABS: ALT 24 U/L (4-49); AST 32 U/L (17-59); African American GFR (CKD) >90 (>60 ml/min/1.73 sqM); Albumin 2.8 g/dL (3.5-5.0); Alkaline Phosphatase 86 U/L (38-126); Anion Gap 8 mmol/L; Blood Urea Nitrogen 14 mg/dL (9-20); Calcium 8.5 mg/dL (8.4-10.2); Carbon Dioxide 19 mmol/L (22-30); Chloride 111 mmol/L (98-107); Glucose 100 mg/dL (74-99); Non-African American GFR(CKD) >90 (>60 ml/min/1.73 sqM); Phosphorus 2.9 mg/dL (2.5-4.5); Potassium 3.6 mmol/L (3.5-5.1); Sodium 138 mmol/L (137-145); Total Bilirubin 0.6 mg/dL (0.2-1.3); Total Protein 6.7 g/dL (6.3-8.2)
[2024-03-02] MEDS: POTASSIUM CHLORIDE 20 MEQ in WATER FOR INJECTION 1 100ML.BAG IVPB ONE (04:57)
[2024-03-02] MEDS ORDERED: POTASSIUM CHLORIDE 10 MEQ in WATER FOR INJECTION 1 100ML.BAG IVPB SCH (05:00)
[2024-03-02 05:23] LABS: Glucose,Whole Blood 98 mg/dL (70-110)
[2024-03-02 05:33] LABS: ABG Base Excess -2.5 mmol/L; ABG HCO3 22 mmol/L (21-25); ABG Oxygen Saturation 97.9 % (94-97); ABG PCO2 34 mmHg (35-45); ABG PH 7.41 (7.35-7.45); ABG PO2 92 mmHg (83-108); ABG TCO2 23 mmol/L (19-24); Allen Test Performed? Yes
--- NOTE | 2024-03-02 08:22 | XR ---
EXAMINATION TYPE: XR chest 1V portable DATE OF EXAM: 03/02/2024 5:17 AM COMPARISON: 03/01/2024 CLINICAL INDICATION: Male, 48 years old with history of mechanical ventilation, FINDINGS: Indwelling tubes and catheters are unchanged. No change in bibasilar opacities. Stable appearance of the cardio-mediastinal structures at this time. Pleural effusion unchanged. IMPRESSION: 1. Stable portable chest. Clinical correlation and follow up until resolution is recommended. [facility], , 03/02/2024 8:20 AM
[2024-03-02 12:26] LABS: Glucose,Whole Blood 115 mg/dL (70-110)
--- NOTE | 2024-03-02 12:57 | P.PN ---
Subjective Progress Note Date: 03/02/24 Patient is a 48-year-old male with complex past medical history including CVA, previous DVTs, right BKA, cardiac arrest in 2021, Crohn's disease, enterocutaneous fistulas, previous bowel resection, ventilator dependent respiratory failure, previous tracheostomy and reversal. Recently was admitted 12/13/2023 through 12/25/2023 for pneumonia and respiratory failure due to mucous plugging. He was intubated and placed on mechanical ventilator for approximately 6 days. He did have a bronchoscopy with BAL, microbiology positive for haemophilus influenza. Eventually, discharged home, and returned 01/02/24 for GIB from his ostomy. Was reintubated and did spend some time on the ventilator for reccurent pneumonia and mucous plugging. During this time, had multiple bronchoscopies with BAL, once on 12/31/2023 and again on 01/03/2024, isolated organisms including MRSA and Pseudomonas. Patient was eventually discharged back home on 01/16/2024. More recently, patient had an ER visit for increased work of breathing on February 22, and the patient was sent home. Returned for similar symptoms yesterday afternoon. Chest x-ray done on admission showing cardiomegaly with pulmonary vascular congestion and questionable right lower lobe infiltrate or effusion. CBC: WBC count 11.2, hemoglobin 10.5, hematocrit 37.3, platelets 315. CMP: Sodium 138, potassium 4.8, chloride 97, serum bicarb 39, BUN 23, creatinine 0.45, glucose 103. Lactic 1. LFTs unremarkable. Troponin less than 0.012. I am evaluating this patient emergency department, he is currently unresponsive, to even painful stimuli. He is on a 15 L nonrebreather. SpO2 88%. Diminished breath sounds on the right Will place this patient on BiPAP with initial settings 16/5 FiO2 to be titrated accordingly. Will get a stat ABG. We will repeat chest x-ray. I did talk to the patient's son, Alan, he is adamant that the patient remain a full code, would want the patient intubated if necessary. On reassessment in the emergency department, patient remained on BiPAP with settings 16/5 100%. He remains unresponsive to painful stimuli. Now only achieving tidal volumes ranging from 100 to 200 cc. Unfortunately, we were not able to to get an initial blood gas. I recommended that the patient be moved to the trauma bay and intubated by the AUDIOLOGY DOCTOR. Follow-up chest x-ray showing the endotracheal tube in appropriate position above the avery. Orogastric tube coursing below the diaphragm. Initial ventilator settings include assist-co ntrol, respiratory rate 20, tidal volume 500, FiO2 100%, PEEP of 5. Currently, patient is fairly asynchronous with the ventilator and he is biting the tube. There are copious amounts of blood-tinged sputum in the ET tube. Elevated peak airway pressures of 45. Static pressure 32. The nurses are working on appropriately sedating the patient with propofol. Postintubation, the patient did become hypotensive, currently receiving his second liter of normal saline. Will also start the patient on norepinephrine to maintain a MAP of greater than 65 mmHg. I did insert a left femoral arterial line. Following this, we did obtain an ABG showing profound hypercapnic and hypoxic respiratory failure. PaO2 of 89, pCO2 98, pH of 7.11. Appropriate ventilator adjustments were made including increasing the rate to 26 and PEEP can be increased to 8. Patient may eventually need repeat bronchoscopy with BAL. Case will be discussed with Dr. Munoz. Patient is still waiting for a bed in the intensive care unit. I did call and update patient's son Alan about his change in clinical condition. 02/27/24 - Patient seen at bedside today, in the ICU. He is on day 3 of his hospital stay, admitted on 02/25/24 and in the ICU since 02/26/24. He remains mechanically ventilated intubated since 02/26/24. He remains on assist-control with a rate of 26, volume 500, FiO2 50% (down from 60%) and a PEEP of 8. ABG done today (on 60% FiO2) showed pO2 126, pCO2 35, pH is 7.50, indicating a mixed respiratory and metabolic alkalosis. Abnormality shown on the patient's lab this morning, inconsistent and drastic changes from previous labs. Will perform a redraw today to get a better idea on how the labs are changed. He remains on vasopressin 0.03 units/min, Levophed at 0.07 mcg/kg/min (6.8 mcg/min), propofol 75 mcg/kg/min, receiving TPN at 30 cc/h (which is goal). Patient's blood pressure today 131/53. Additionally, patient receiving cefepime and vancomycin secondary to leukocytosis and a Tmax on 02/26/24 of 100.5 F. Sputum culture currently pending. Chest x-ray from this morning showed improving right perihilar and lower lobe infiltrate. Additionally, patient is currently receiving TPN ([employer]im[employer]) at 30 cc/h which is goal for dietitian. 02/28/24 - Patient seen at bedside today, in the ICU. He is on day 4 of his hospital stay, admitted on 02/25/24 and in the ICU since 02/26/24. He remains intubated and mechanically ventilated since 02/26/24. He remains on assist- control with a rate of 25, [place] 500, FiO2 40% and PEEP of 8. ABG done today (while on 100% FiO2) showed pO2 255, pCO2 37, pH 7.44 indicating slight respiratory alkalosis. The abnormalities noted on the patient's labs from yesterday were rechecked on a couple of occasion and seem to be accurate. This morning labs showed WBC 5.2, hemoglobin 8.2, sodium 139, potassium 3.8, chloride 114, BUN 10, creatinine 0.44, calcium 8.2, phosphorus 2.6, magnesium 2.0. Patient received supplementation with sodium phosphate, potassium chloride and magnesium sulfate. He remains on Levophed 0.07 mcg/kg/min (7 mcg/min), propofol 75 mcg/kg/min, normal saline at 30 cc/h and TPN at 30 cc/h (which is goal). Additionally, patient remains on cefepime and vancomycin; sputum culture is final for Pseudomonas aeruginosa that any resistance. Blood cultures continue to be pending at this time. Chest x-ray from this morning continue show right lower lobe infiltrate. 02/29/24 - Patient seen at bedside today, in the ICU. He is on day 5 of his hospital stay, admitted on 02/25/24 and then the ICU since 02/26/24. He remains intubated mechanically ventilated since 02/26/24. He remains on assist-control with a rate of 26, volume 500, FiO2 50%, PEEP of 8. ABG completed today showed pO2 96, pCO2 30, pH 7.51 indicating a respiratory and metabolic alkalosis. On labs drawn today patient's WBC is 4.1, hemoglobin 8.0, sodium 138, chloride 114, potassium 3.9, BUN 13, creatinine 0.46, phosphorus 2.2, magnesium 1.9. Patient received 1 g magnesium sulfate this morning and 15 mmol sodium phosphate. He remains on propofol 75 mcg/mg/min, Levophed at 0.03 mcg/kg/min (~3 mcg/min) and TPN at 30 cc/h (which is goal). He remains on 0.9% normal saline at 20 cc/h, and cefepime 2 g every 8 hours. Blood cultures remain pending at this time. Chest x-ray shows more prominent small bilateral pleural effusions and associated bibasilar opacities. The patient is seen today March 01, 2024 in follow-up on the regular medical floor. He remains intubated on the mechanical ventilator and assist-control mode with a rate of 26, tidal volume 500, FiO2 50% and a PEEP of 8. Morning blood gases revealed a PaO2 111, pCO2 22 and a pH of 7.48. He is currently on propofol at 55 mcg/kg/min. Receiving TPN at 30 mL/h. Normal saline at KVO. He remains on cefepime for pseudomonal bronchial infection. White count 5.2. Hemoglobin 8.4. Platelets 184. Sodium 136. Potassium 3.5. Bicarb 20. BUN 13. Creatinine 0.53. Glucose 87. He is afebrile. Hemodynamically stable. Chest x-ray reveals persistent small bilateral effusions. He is continued on DuoNebs. Lovenox for DVT prophylaxis. On today's evaluation of 03/02/2024, the patient is being seen in follow-up in the intensive care unit. The patient remains intubated on the mechanical ventilator. The patient is sedated and currently propofol is running at 60 mcg/kg/min. He is calm and comfortable and synchronous with mechanical ventilator. No significant agitation. He is on assist-control mode of mechanical ventilation at rate of 26, tidal volume of 500, FiO2 of 60% with a PEEP of 8. Chest x-ray showing a component of pulm vessel congestion, atelectatic changes in lung bases and small bilateral pleural effusions. ET tube is around 5 cm above the avery. The blood gas showed a pH of 7.41 with a pCO2 of 34 and pO2 of 92 and there has been some improvement in his oxygenation over the past 24 hours. He remains NPO. He remains on TPN for nutritional support which is running at rate of 30 cc an hour. He has an ileostomy and output from the ileostomy is quite high and he has produced around 600 cc of output from his ileostomy over the past 8 hours. No signs of any active bleeding. Hemodynamically, the patient is on IV fluids at KVO. He is also on pressors and norepinephrine is running at a low dose of 0.02 mcg/kg/min. He is covered with broad-spectrum antibiotics and he is currently on IV cefepime. He did grow Pseudomonas in his sputum analysis and underlying pseudomonal infection/pneumonia cannot be completely excluded. In terms of his blood work from today, the patient has a white cell count of 6.3, hemoglobin 9.1. And a platelet count of 197. The rest of the electrolytes are all stable with a serum bicarb of 19, sodium of 138, potassium level 3.6, chloride 111, BUN is 14 with a creatinine of 0.5. He has ionized calcium level was at 4.9. His LFTs are essentially within normal limits. Total protein is at 6.7 with an albumin level of 2.8. Note that the patient was given a trial of extubation yesterday. Within 2 hours postextubation, the patient had to be reintubated because of increased work of breathing and hypoxic respiratory failure. As such, the patient has been kept intubated for now. The patient is arousable even while being on sedation and can follow some simple commands. Objective - Vital Signs Vital signs: Vital Signs Temp 98.8 F 03/02/24 04:00 Pulse 76 03/02/24 07:00 Resp 26 H 03/02/24 07:00 BP 99/54 03/02/24 07:00 Pulse Ox 97 03/02/24 07:00 FiO2 60 03/02/24 04:00 Intake & Output 03/01/24 03/02/24 03/02/24 18:59 06:59 18:59 Intake Total 613.573 0066.933 43 Output Total 1520 1515 40 Balance -819.750 -334.067 3 Intake: IV 433 466 13 Cefepime 2 gm In Sodium 100 200 Chloride 0.9% 100 ml @ 25 mls/hr IVPB Q8H [facility] Rx#: [id number] KVO 110 10 Mvi, Adult No.4 with Vit 240 K 10 ml Trace (Conc-1Ml/ Dose) 1 ml Sodium Acetate 30 meq Potassium Acetate 40 meq Calcium Gluconate 1 gm Magnesium Sulfate gm 1 gm Potassium Phosphate 24 mmol In Amino Acids 5 %/Dextrose 20 % 1,000 ml @ 30 mls/hr IV .Q24H [facility] Rx#: [id number] NORMAL SALINE PRESSURE 33 36 3 BAG Potassium Chloride 20 meq 100 In Water For Injection 1 100ml.bag @ 50 mls/hr IVPB Q2H [facility] Rx#: [id number] Sodium Chloride 0.9% 1, 60 20 000 ml @ 20 mls/hr IV . Q24H [facility] Rx#:[id number] Intake, IV Titration 267.250 384.933 Amount Norepinephrine 32 mg In 1.713 Sodium Chloride 0.9% 218 ml @ 0.08 MCG/KG/MIN 3. 653 mls/hr IV .Q24H [facility] Rx#:[id number] Potassium Chloride 20 meq 100 In Water For Injection 1 100ml.bag @ 50 mls/hr IVPB Q2H [facility] Rx#: [id number] propofoL 1,000 mg In 167.250 383.220 Empty Bag 1 bag @ 15 MCG/ KG/MIN 8.573 mls/hr IV . [id number] [facility] Rx#:[id number] TPN/PPN 330 30 Mvi, Adult No.4 with Vit 330 30 K 10 ml Trace (Conc-1Ml/ Dose) 1 ml Sodium Acetate 30 meq Potassium Acetate 40 meq Calcium Gluconate 1 gm Magnesium Sulfate gm 1 gm Potassium Phosphate 24 mmol In Amino Acids 5 %/Dextrose 20 % 1,000 ml @ 30 mls/hr IV .Q24H [facility] Rx#: [id number] Output: Gastric Drainage 200 Drainage 650 Mid Abdomen 650 Urine 620 665 40 Stool 900 Other: Voiding Method Indwelling Catheter Indwelling Catheter ABP, PAP, CO, CI - Last Documented Arterial Blood Pressure 77/75 - Exam GENERAL: A 48-year-old male patient, currently intubated mechanically ventilated and sedated. Arousable and follows some simple commands. Orotracheal and orogastric tube are both in place Head exam was generally normal. There was no scleral icterus or corneal arcus. Mucous membranes were moist. HEENT: No scleral icterus. No conjunctival pallor. Normocephalic, atraumatic. CARDIOVASCULAR: S1 and S2 present. No murmurs, rubs, or gallops. PULMONARY: Diminished breath sounds were bilaterally. No wheezes rhonchi or crackles ABDOMEN: Soft, nontender, nondistended, normoactive bowel sounds. No palpable organomegaly. Functioning ileostomy. 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 EXTREMITIES: No cyanosis, clubbing, or pedal edema. NEUROLOGICAL: Unable to fully assess the patient has intubated mechanically ventilated and sedated. SKIN: No rashes. Left chest PICC line. - Labs CBC & Chem 7: 03/02/24 04:05 03/02/24 04:05 Labs: Abnormal Lab Results - Last 24 Hours (Table) 03/01/24 03/01/24 03/02/24 Range/Units 14:09 16:07 04:05 RBC (4.30-5.90) m/uL Hgb (13.0-17.5) gm/dL Hct (39.0-53.0) % MCHC (31.0-37.0) g/dL RDW (11.5-15.5) % ABG pH 7.20 L (7.35-7.45) ABG pCO2 58 H 32 L (35-45) mmHg ABG pO2 66 L (83-108) mmHg ABG O2 Saturation (94-97) % Hemoglobin 8.8 L (13.0-17.5) gm/dL Chloride 111 H (98-107) mmol/L Carbon Dioxide 19 L (22-30) mmol/L Creatinine 0.52 L (0.66-1.25) mg/dL Glucose 100 H (74-99) mg/dL Albumin 2.8 L (3.5-5.0) g/dL 03/02/24 03/02/24 Range/Units 04:05 05:29 RBC 3.52 L (4.30-5.90) m/uL Hgb 9.2 L (13.0-17.5) gm/dL Hct 30.6 L (39.0-53.0) % MCHC 30.1 L (31.0-37.0) g/dL RDW 17.6 H (11.5-15.5) % ABG pH (7.35-7.45) ABG pCO2 34 L (35-45) mmHg ABG pO2 (83-108) mmHg ABG O2 Saturation 97.9 H (94-97) % Hemoglobin 9.2 L (13.0-17.5) gm/dL Chloride (98-107) mmol/L Carbon Dioxide (22-30) mmol/L Creatinine (0.66-1.25) mg/dL Glucose (74-99) mg/dL Albumin (3.5-5.0) g/dL Assessment and Plan Plan: Acute hypoxic and hypercapnic respiratory failure, requiring mechanical intubation on 02/26/24. The patient is known to have chronic respiratory insufficiency as the patient has poor ability to perform pulmonary toileting, we ak cough, and has had recurrent pneumonias with gram-negative and MRSA. Most recent sputum sample from 02/26/2024 is positive for Pseudomonas aeruginosa and the patient is currently on IV cefepime. Patient failed BiPAP therapy during this current admission the patient had to be intubated and placed on the mechanical ventilator on 02/26/2024. The patient was given a trial of extubation on 03/01/2024 and within 2 hours of extubation he had to be reintubated for increased work of breathing and hypoxic respiratory failure. Consider mucous plugs along with neuromuscular weakness and tracheal stenosis contributing to his respiratory failure. Underlying pneumonia cannot be completely ruled out. Tracheal stenosis at the site of the previously inserted tracheostomy tube, visualized on most recent bronchoscopy Previous history of recurrent ventilator dependent respiratory failure, secondary to pneumonia and mucous plugging. The patient has undergone previous bronchoscopies and cultures from bronchoscopy on 12/31/2023 was positive for MRSA and subsequent bronchoscopy on 01/03/2024 was positive for Klebsiella pneumoniae and Bella glabrata. Most recent sputum analysis from 02/26/2024 was positive for Pseudomonas aeruginosa and the patient is currently on IV cefepime. Sepsis secondary to above, recurrent pneumonia, currently on no pressors Leukocytosis, resolved Crohn's disease, with previous complication of bowel perforation s/p colectomy and diverting ileostomy. The patient also has had previous history of abdominal wall bleeding there is currently inactive and stable. The patient has a high output ileostomy TPN for nutritional support Electrolyte imbalance at time of admission including hyponatremia, hypokalemia, hypophosphatemia, hypomagnesemia and hyperphosphatemia, all resolved Tracheobronchomalacia History of DVT, on therapeutic dose of Lovenox CVA/TIA, with residual left-sided weakness Right BKA History of asystole/cardiac arrest in 2021 Plan: The patient failed extubation yesterday and we will keep him on the mechanical ventilator for now We performed a bedside bronchoscopy, removal of mucous plugs if any and do another bronchoalveolar lavage Continue IV cefepime Continue vent support and dropped FiO2 down to 50% and dropped the PEEP down to 6 TPN for nutritional support Continue bronchodilators Lovenox for DVT prophylaxis Will continue to follow make further recommendations based on his progress. Critical care evaluation that was done more than 30 minutes. Time with Patient: Greater than 30
--- NOTE | 2024-03-02 17:52 | P.PCN ---
Date of Procedure: 03/02/24 Operative Findings: Preoperative Diagnosis: Acute hypoxic respiratory failure/pneumonia/mucous plugs Postoperative Diagnosis: Same Procedure(s) Performed: Bronchoscopy, removal of mucous plugs and a bronchioloalveolar lavage Anesthesia: MAC Surgeon: Estela Holt Estimated Blood Loss (ml): 0 Pathology: other Condition: critical Disposition: ICU Operative Findings: Bronchoscopy and the bronchoalveolar lavage Post intubation, the patient was placed on the mechanical ventilator on assist- control mode. An adapter was attached to the orotracheal tube and following that the flexor bronchoscope was inserted to the orotracheal tube and was advanc ed into the lower trachea. The distal trachea was full of respiratory secretions that were tenacious and thick and purulent. Therapeutic airway suctioning was done. More secretions were identified in the bilateral mainstem bronchi and the various segments of the lower lobes bilaterally. As such, therapeutic airway suctioning was completed and a total of 30 cc of tenacious thick material was aspirated from the patient's tracheobronchial tree. Following that, and airway inspection was done. Bilateral mainstem bronchi was patent. Examination of the right side including the right mainstem bronchus, right upper lobe bronchus, bronchus intermedius, right middle lobe bronchus and the right lower lobe bronchus and the various 10 segments on the right and examination of the left side including left mainstem bronchus, left upper lobe bronchus and the left lower bronchus and the various 8 segments on the left. A bronchoalveolar lavage of the right lower lobe was done. Respiratory secretions were all suctioned out and the bronchoscope was removed. No complications. The patient was kept on propofol. Pulse ox was in the order of 99 to 100% at the completion of the procedure.
[2024-03-02 17:58] LABS: Glucose,Whole Blood 118 mg/dL (70-110)
--- NOTE | 2024-03-02 22:11 | P.PN ---
Subjective Progress Note Date: 03/02/24 This is a 48-year-old male who presented to the emergency department with increased shortness of breath and hypoxia with concerns of possible pneumonia. Patient was placed on nonrebreather and ultimately required BiPAP as patient chronically wears oxygen outpatient and became more obtunded and unresponsive requiring mechanical ventilation and was admitted to the ICU with hypoxia and concerns for pneumonia. Patient follows with Dr. Ivey in the outpatient setting with a significant past medical history of CVA, DVT, Crohn's, previous MRSA infections, right BKA and multiple hospitalizations. Patient is maintained on TPN outpatient for his chronic malnutrition secondary to Crohn's and was most recently hospitalized earlier this year requiring ICU admission and mechanical ventilation with continuous mucous plugging requiring multiple bronchoscopies. Blood pressures are also low requiring pressor support. Antibiotics were started with concerns of pneumonia. Procalcitonin ordered. Recommend infectious disease evaluation and appreciate input and recommendations as well. 02/27/2024 Patient is seen and evaluated in follow-up continues in the ICU on mechanical ventilation with no attempts at weaning today. Patient is off vasopressin although still requiring Levophed for extremely low blood pressures. Hemoglobin is stable above 8.6 and patient remains afebrile with no white count. Sodium is 136 with a potassium of 3.0, 0.38 creatinine and blood sugars being controlled. Phosphorus low on redraw at 1.0 along with magnesium being 1.6. Will replace phosphorus and potassium per protocol and also continue with TPN. Pharmacy and dietary to make adjustments on TPN and electrolytes. Preliminary Gram stain sputum culture showing Pseudomonas aeruginosa and blood cultures thus far have been negative. Chest x-ray today shows improving right perihilar and lower lobe infiltrate. Infectious disease following as well and patient is continued on cefepime along with vancomycin. 02/28/2024 Patient evaluated today in follow up remains in the ICU and on the mechanical ventilator with no attempts being made to wean today. Patient remains on IV cefepime with findings of pseudomonas in the sputum. Chest xray today reveals mild worsening right lower lobe infiltrate. Correlate for atelectasis or pneumonia. Patient remains on TPN at this time. White blood cell count remains normal at 5.2. Hemoglobin stable at 8.2. Sodium better at 3.8. Patient remains on levophed. 02/29/2024 Patient is evaluated today in follow up in the intensive care unit. Patient remains on the mechanical ventilator and did not tolerate attempts at weaning today. Levophed remains on hold as blood pressure is significantly improved. Chest xray today reveals more prominent small bilateral pleural effusions and associated bibasilar opacities could reflect acute infiltrate and or atelectasis. Correlate for fluid overload state. Patient continues on IV cefepime. Remains on TPN also. White blood cell count 4.1, hgb 8.0. Sodium 138, potassium 3.9, BUN 13, creatinine 0.46. 03/01/2024 Patient is eval today in the intensive care unit. Chest x-ray today reveals persistent small bilateral pleural effusions and associated bibasilar acute infiltrate and/or atelectasis. Blood gases are improved. Sedation remains on hold and patient is awake alert and responsive. He remains on the mechanical ventilator. Remains on IV cefepime. Patient is also maintained on TPN. White blood cell count 5.2, hemoglobin 8.4, sodium 136, potassium 4.6, BUN of 13 creatinine 0.53. 03/02/2024 Patient is evaluated today in the intensive care unit in follow-up. Patient remains intubated and sedated on mechanical ventilator, patient is FiO2 of 50%. Chest x-ray today reveals no change in the basilar opacities. Sputum culture showing Pseudomonas. Blood cultures are negative patient continues on IV cefepime. Patient is continued on TPN. White blood cell count of 6.3, hemoglobin 9.2. Sodium level 138 BUN of 14 creatinine 0.52. REVIEW OF SYSTEMS: Unable to completely assess as patient is on mechanical ventilation and sedated The rest of the 14-point review of systems is negative. PHYSICAL EXAMINATION: GENERAL: The patient is currently on mechanical ventilation with an FiO2 of 50%, PEEP is 5. Well developed, appears older than stated age, ill-appearing, obese HEENT: Pupils are round and equally reacting to light. EOMI. No scleral icterus. No conjunctival pallor. Normocephalic, atraumatic. No pharyngeal erythema. No thyromegaly. CARDIOVASCULAR: S1 and S2 muffled, PULMONARY: Diminished breath sounds bilaterally with ventilator assist breathing, some bronchial congestion noted ABDOMEN: Soft, nontender, nondistended, normoactive bowel sounds. No palpable organomegaly. Ostomy noted MUSCULOSKELETAL: No joint swelling or deformity. EXTREMITIES: No cyanosis, clubbing, or pedal edema. Right BKA noted, diffusely weak currently on sedation NEUROLOGICAL: Gross neurological examination did not reveal any focal deficits. Unable to completely assess as patient is sedated SKIN: No rashes. Assessment: Shortness of breath, acute hypoxic respiratory failure requiring mechanical ventilation, likely secondary to recurrent mucous plugging with concerns of possible right lower lobe pneumonia Possible right lower lobe pneumonia, present on admission versus recurrent mucous plugging with atelectasis, procalcitonin is 0.63 Electrolyte abnormalities including low phosphorus and low potassium, being replaced per protocol Sepsis, present on admission secondary to above History of tracheobronchomalacia History of anemia History of CVA History of DVT and right BKA History of Crohn's disease with previous bowel perforation with colectomy and end ileostomy with chronic wounds with enterocutaneous fistulas Severe protein calorie malnutrition secondary to Crohn's and maintained on TPN outpatient History of previous tracheostomy with tracheal stenosis History of previous cardiac arrest in 2021 History of MRSA previously Former smoker Obesity with a BMI of 30.8 GI prophylaxis DVT prophylaxis Full code Plan: Patient continues in the ICU on mechanical ventilation FiO2 has been reduced to 50% with a PEEP of 5 Antibiotics have been started with concerns of pneumonia and procalcitonin is mildly elevated at 0.63. Infectious disease following and patient is continued on cefepime Recommend frequent suctioning per pulmonary automation and control engineer and monitor respiratory status closely for any further mucous plugging. Patient was recently hospitalized in the ICU for quite some time and underwent multiple bronchoscopies Continue local wound care and also consult ostomy nurse Follow-up on repeat labs and replace electrolytes per protocol Cardiology following with no acute changes in medications recommend to continue with telemetry monitoring Continue dietary and pharmacy to adjust TPN Due to multiple complex medical issues, overall prognosis is guarded The impression and plan of care has been dictated by Coral Medina Nurse Practitioner as directed. Dr. Mo MD I have performed a history and examination and MDM of this patient, discussed the same with the dictator, and agree with the dictator's assessment and plan as written ,documented as a scribe. Based on total visit time, I have performed more than 50% of the visit. Objective - Vital Signs Vital signs: Vital Signs Temp 98.3 F 03/02/24 12:15 Pulse 68 03/02/24 20:24 Resp 26 H 03/02/24 19:00 BP 97/54 03/02/24 19:00 Pulse Ox 99 03/02/24 19:00 FiO2 50 03/02/24 20:04 Intake & Output 03/02/24 03/02/24 03/03/24 06:59 18:59 06:59 Intake Total 1180.933 383.730 98.156 Output Total 1515 525 50 Balance -334.067 -141.270 48.156 Weight 93.9 kg Intake: IV 466 156 13 Cefepime 2 gm In Sodium 200 Chloride 0.9% 100 ml @ 25 mls/hr IVPB Q8H [facility] Rx#: [id number] KVO 110 120 10 NORMAL SALINE PRESSURE 36 36 3 BAG Potassium Chloride 20 meq 100 In Water For Injection 1 100ml.bag @ 50 mls/hr IVPB Q2H ANN[facility] Rx#: [id number] Sodium Chloride 0.9% 1, 20 000 ml @ 20 mls/hr IV . Q24H [facility] Rx#:[id number] Intake, IV Titration 384.933 197.730 85.156 Amount Norepinephrine 32 mg In 1.713 22.877 Sodium Chloride 0.9% 218 ml @ 0.08 MCG/KG/MIN 3. 653 mls/hr IV .Q24H [facility] Rx#:[id number] propofoL 1,000 mg In 383.220 174.853 85.156 Empty Bag 1 bag @ 15 MCG/ KG/MIN 8.573 mls/hr IV . [id number] [facility] Rx#:[id number] TPN/PPN 330 30 Mvi, Adult No.4 with Vit 330 30 K 10 ml Trace (Conc-1Ml/ Dose) 1 ml Sodium Acetate 30 meq Potassium Acetate 40 meq Calcium Gluconate 1 gm Magnesium Sulfate gm 1 gm Potassium Phosphate 24 mmol In Amino Acids 5 %/Dextrose 20 % 1,000 ml @ 30 mls/hr IV .Q24H [facility] Rx#: [id number] Output: Gastric Drainage 200 50 Drainage 650 Mid Abdomen 650 Urine 665 475 50 Other: Voiding Method Indwelling Catheter Indwelling Catheter ABP, PAP, CO, CI - Last Documented Arterial Blood Pressure 91/88 - Labs CBC & Chem 7: 03/02/24 04:05 03/02/24 04:05 Labs: Abnormal Lab Results - Last 24 Hours (Table) 03/02/24 03/02/24 03/02/24 Range/Units 04:05 04:05 05:29 RBC 3.52 L (4.30-5.90) m/uL Hgb 9.2 L (13.0-17.5) gm/dL Hct 30.6 L (39.0-53.0) % MCHC 30.1 L (31.0-37.0) g/dL RDW 17.6 H (11.5-15.5) % ABG pCO2 34 L (35-45) mmHg ABG O2 Saturation 97.9 H (94-97) % Hemoglobin 9.2 L (13.0-17.5) gm/dL Chloride 111 H (98-107) mmol/L Carbon Dioxide 19 L (22-30) mmol/L Creatinine 0.52 L (0.66-1.25) mg/dL Glucose 100 H (74-99) mg/dL POC Glucose (mg/dL) (70-110) mg/dL Albumin 2.8 L (3.5-5.0) g/dL 03/02/24 03/02/24 Range/Units 12:24 17:57 RBC (4.30-5.90) m/uL Hgb (13.0-17.5) gm/dL Hct (39.0-53.0) % MCHC (31.0-37.0) g/dL RDW (11.5-15.5) % ABG pCO2 (35-45) mmHg ABG O2 Saturation (94-97) % Hemoglobin (13.0-17.5) gm/dL Chloride (98-107) mmol/L Carbon Dioxide (22-30) mmol/L Creatinine (0.66-1.25) mg/dL Glucose (74-99) mg/dL POC Glucose (mg/dL) 115 H 118 H (70-110) mg/dL Albumin (3.5-5.0) g/dL Microbiology - Last 24 Hours (Table) 02/26/24 04:50 Blood Culture - Final Blood 02/26/24 04:30 Blood Culture - Final Blood Assessment and Plan Time with Patient: Less than 30
[2024-03-03 01:13] LABS: Glucose,Whole Blood 109 mg/dL (70-110)
[2024-03-03 06:19] LABS: Anisocytosis Slight; Basophils % (A) 0 %; Eosinophils # (A) 0.3 k/uL (0-0.7); Eosinophils % (A) 4 %; HCT 32.8 % (39.0-53.0); HGB 9.6 gm/dL (13.0-17.5); Hypochromasia Marked; Lymphocytes # (A) 1.4 k/uL (1.0-4.8); Lymphocytes % (A) 24 %; MCH 26.1 pg (25.0-35.0); MCHC 29.4 g/dL (31.0-37.0); MCV 88.6 fL (80.0-100.0); Mean Platelet Volume 9.4; Monocytes # (A) 0.3 k/uL (0-1.0); Monocytes % (A) 6 %; Neutrophils # (A) 3.8 k/uL (1.3-7.7); Neutrophils % (A) 64 %; Platelet Count 216 k/uL (150-450); RDW 17.6 % (11.5-15.5)
[2024-03-03 06:31] LABS: African American GFR (CKD) >90 (>60 ml/min/1.73 sqM); Anion Gap 9 mmol/L; Blood Urea Nitrogen 10 mg/dL (9-20); Calcium 8.8 mg/dL (8.4-10.2); Carbon Dioxide 17 mmol/L (22-30); Chloride 112 mmol/L (98-107); Glucose 105 mg/dL (74-99); Magnesium 1.9 mg/dL (1.6-2.3); Non-African American GFR(CKD) >90 (>60 ml/min/1.73 sqM); Potassium 3.5 mmol/L (3.5-5.1); Sodium 138 mmol/L (137-145)
[2024-03-03] MEDS: POTASSIUM CHLORIDE 20 MEQ in WATER FOR INJECTION 1 100ML.BAG IVPB SCH (06:48)
--- NOTE | 2024-03-03 07:59 | XR ---
EXAMINATION TYPE: XR chest 1V portable DATE OF EXAM: 03/03/2024 5:15 AM COMPARISON: None. CLINICAL INDICATION: Male, 48 years old with history of mechanical ventilation, FINDINGS: Indwelling tubes and catheters are unchanged. No change in bibasilar opacities. Stable appearance of the cardio-mediastinal structures at this time. IMPRESSION: 1. Stable portable chest. Clinical correlation and follow up until resolution is recommended. [facility], , 03/03/2024 7:56 AM
[2024-03-03 11:16] LABS: Glucose,Whole Blood 108 mg/dL (70-110)
[2024-03-03 12:24] LABS: Glucose,Whole Blood 102 mg/dL (70-110)
--- NOTE | 2024-03-03 12:42 | P.PN ---
Subjective Progress Note Date: 03/02/24 Principal diagnosis: Reason for follow-up is pneumonia Patient is a 48-year-old male with a past medical history significant for CVA TIA DVT bones disease multiple abdominal surgeries did have a enterocutaneous fistula recent admission for pneumonia has been brought to the hospital with worsening shortness of with hypoxemia patient did have worsening respiratory status requiring intubation and admission to the ICU. On today's evaluation that is 03/02/2024, patient has been afebrile, patient got reintubated because of his worsening respiratory status patient is currently hemodynamically stable FiO2 at 50% no significant purulent secretions any during the changes reported by the nursing staff. Patient white count 6.3 creatinine 0.52 chest x-ray no significant overall change Objective - Vital Signs Vital signs: Vital Signs Temp 98.3 F 03/02/24 12:15 Pulse 75 03/02/24 13:30 Resp 26 H 03/02/24 13:30 BP 85/43 03/02/24 13:30 Pulse Ox 100 03/02/24 13:30 FiO2 50 03/02/24 12:23 Intake & Output 03/01/24 03/02/24 03/02/24 18:59 06:59 18:59 Intake Total 317.023 3717.933 224.994 Output Total 1520 1515 275 Balance -819.750 -334.067 -50.006 Weight 93.9 kg Intake: IV 433 466 104 Cefepime 2 gm In Sodium 100 200 Chloride 0.9% 100 ml @ 25 mls/hr IVPB Q8H [facility] Rx#: [id number] KVO 110 80 Mvi, Adult No.4 with Vit 240 K 10 ml Trace (Conc-1Ml/ Dose) 1 ml Sodium Acetate 30 meq Potassium Acetate 40 meq Calcium Gluconate 1 gm Magnesium Sulfate gm 1 gm Potassium Phosphate 24 mmol In Amino Acids 5 %/Dextrose 20 % 1,000 ml @ 30 mls/hr IV .Q24H [facility] Rx#: [id number] NORMAL SALINE PRESSURE 33 36 24 BAG Potassium Chloride 20 meq 100 In Water For Injection 1 100ml.bag @ 50 mls/hr IVPB Q2H [facility] Rx#: [id number] Sodium Chloride 0.9% 1, 60 20 000 ml @ 20 mls/hr IV . Q24H [facility] Rx#:[id number] Intake, IV Titration 267.250 384.933 90.994 Amount Norepinephrine 32 mg In 1.713 16.141 Sodium Chloride 0.9% 218 ml @ 0.08 MCG/KG/MIN 3. 653 mls/hr IV .Q24H [facility] Rx#:[id number] Potassium Chloride 20 meq 100 In Water For Injection 1 100ml.bag @ 50 mls/hr IVPB Q2H [facility] Rx#: [id number] propofoL 1,000 mg In 167.250 383.220 74.853 Empty Bag 1 bag @ 15 MCG/ KG/MIN 8.573 mls/hr IV . [id number] [facility] Rx#:[id number] TPN/PPN 330 30 Mvi, Adult No.4 with Vit 330 30 K 10 ml Trace (Conc-1Ml/ Dose) 1 ml Sodium Acetate 30 meq Potassium Acetate 40 meq Calcium Gluconate 1 gm Magnesium Sulfate gm 1 gm Potassium Phosphate 24 mmol In Amino Acids 5 %/Dextrose 20 % 1,000 ml @ 30 mls/hr IV .Q24H [facility] Rx#: [id number] Output: Gastric Drainage 200 Drainage 650 Mid Abdomen 650 Urine 620 665 275 Stool 900 Other: Voiding Method Indwelling Catheter Indwelling Catheter ABP, PAP, CO, CI - Last Documented Arterial Blood Pressure 92/88 - Exam GENERAL DESCRIPTION: Middle-age man intubated on the vent RESPIRATORY SYSTEM: Unlabored breathing , coarse breath sounds bilaterally HEART: S1 S2 regular rate and rhythm , ABDOMEN: Soft , no tenderness EXTREMITIES: No edema feet - Labs CBC & Chem 7: 03/03/24 05:50 03/03/24 05:50 Labs: Abnormal Lab Results - Last 24 Hours (Table) 03/01/24 03/02/24 03/02/24 Range/Units 16:07 04:05 04:05 RBC 3.52 L (4.30-5.90) m/uL Hgb 9.2 L (13.0-17.5) gm/dL Hct 30.6 L (39.0-53.0) % MCHC 30.1 L (31.0-37.0) g/dL RDW 17.6 H (11.5-15.5) % ABG pCO2 32 L (35-45) mmHg ABG pO2 66 L (83-108) mmHg ABG O2 Saturation (94-97) % Hemoglobin 8.8 L (13.0-17.5) gm/dL Chloride 111 H (98-107) mmol/L Carbon Dioxide 19 L (22-30) mmol/L Creatinine 0.52 L (0.66-1.25) mg/dL Glucose 100 H (74-99) mg/dL POC Glucose (mg/dL) (70-110) mg/dL Albumin 2.8 L (3.5-5.0) g/dL 03/02/24 03/02/24 Range/Units 05:29 12:24 RBC (4.30-5.90) m/uL Hgb (13.0-17.5) gm/dL Hct (39.0-53.0) % MCHC (31.0-37.0) g/dL RDW (11.5-15.5) % ABG pCO2 34 L (35-45) mmHg ABG pO2 (83-108) mmHg ABG O2 Saturation 97.9 H (94-97) % Hemoglobin 9.2 L (13.0-17.5) gm/dL Chloride (98-107) mmol/L Carbon Dioxide (22-30) mmol/L Creatinine (0.66-1.25) mg/dL Glucose (74-99) mg/dL POC Glucose (mg/dL) 115 H (70-110) mg/dL Albumin (3.5-5.0) g/dL Microbiology - Last 24 Hours (Table) 02/26/24 04:50 Blood Culture - Final Blood 02/26/24 04:30 Blood Culture - Final Blood Assessment and Plan (1) Pneumonia Current Visit: No Status: Acute Code(s): J18.9 - PNEUMONIA, UNSPECIFIED ORGANISM SNOMED Code(s): 683273204 (2) Sepsis Current Visit: No Status: Acute Code(s): A41.9 - SEPSIS, UNSPECIFIED ORGANISM SNOMED Code(s): 78460570 Plan: 1patient presented to hospital with sepsis in this patient who did have a low- grade fever elevated white count tachycardia meeting criteria for SIRS source likely pneumonia at this patient presenting with increasing shortness of breath cough with evidence of right-sided infiltrate, patient has been admitted to the hospital and will need to cover for resistant gram-positive as well as gram-negative 2-sputum currently growing Pseudomonas blood culture so far negative 3patient did have worsening of his respiratory status requiring reintubation patient is scheduled for bronchoscopy and lavage this afternoon for now continue with the cefepime Dictation was produced using [employer] dictation software. please excuse any grammatical, word or spelling errors. Time with Patient: Less than 30
--- NOTE | 2024-03-03 12:44 | P.PN ---
Subjective Progress Note Date: 03/03/24 Principal diagnosis: Reason for follow-up is pneumonia Patient is a 48-year-old male with a past medical history significant for CVA TIA DVT bones disease multiple abdominal surgeries did have a enterocutaneous fistula recent admission for pneumonia has been brought to the hospital with worsening shortness of with hypoxemia patient did have worsening respiratory status requiring intubation and admission to the ICU. On today's evaluation that is 03/03/2024, the patient continues to be afebrile patient remains to be on the vent however is requiring 100% FiO2 patient is hemodynamically stable no other changes reported by the nursing staff. Patient white count 6.0 creatinine 0.43 he did have a BAL culture done yesterday which are currently pending Objective - Vital Signs Vital signs: Vital Signs Temp 99.5 F 03/03/24 12:00 Pulse 80 03/03/24 12:00 Resp 16 03/03/24 12:00 BP 106/51 03/03/24 12:00 Pulse Ox 98 03/03/24 12:00 FiO2 100 03/03/24 12:00 Intake & Output 03/02/24 03/03/24 03/03/24 18:59 06:59 18:59 Intake Total 393.032 8252.913 560 Output Total 525 1475 335 Balance -141.270 666.913 225 Weight 93.9 kg Intake: IV 156 703 280 Cefepime 2 gm In Sodium 400 100 Chloride 0.9% 100 ml @ 25 mls/hr IVPB Q8H [facility] Rx#: [id number] KVO 120 300 180 NORMAL SALINE PRESSURE 36 3 BAG Intake, IV Titration 946.824 8009.913 100 Amount Mvi, Adult No.4 with Vit 720.5 K 10 ml Trace (Conc-1Ml/ Dose) 1 ml Sodium Acetate 40 meq Potassium Acetate 40 meq Calcium Gluconate 1 gm Magnesium Sulfate gm 1.5 gm Potassium Phosphate 24 mmol In Amino Acids 5 %/Dextrose 20 % 1,000 ml @ 30 mls/hr IV .Q24H ANNIE Rx#: [id number] Norepinephrine 32 mg In 22.877 22.673 Sodium Chloride 0.9% 218 ml @ 0.08 MCG/KG/MIN 3. 653 mls/hr IV .Q24H [facility] Rx#:[id number] propofoL 1,000 mg In 174.853 365.740 100 Empty Bag 1 bag @ 15 MCG/ KG/MIN 8.573 mls/hr IV . [id number] [facility] Rx#:[id number] TPN/PPN 30 330 180 Mvi, Adult No.4 with Vit 30 K 10 ml Trace (Conc-1Ml/ Dose) 1 ml Sodium Acetate 30 meq Potassium Acetate 40 meq Calcium Gluconate 1 gm Magnesium Sulfate gm 1 gm Potassium Phosphate 24 mmol In Amino Acids 5 %/Dextrose 20 % 1,000 ml @ 30 mls/hr IV .Q24H [facility] Rx#: [id number] Mvi, Adult No.4 with Vit 330 180 K 10 ml Trace (Conc-1Ml/ Dose) 1 ml Sodium Acetate 40 meq Potassium Acetate 40 meq Calcium Gluconate 1 gm Magnesium Sulfate gm 1.5 gm Potassium Phosphate 24 mmol In Amino Acids 5 %/Dextrose 20 % 1,000 ml @ 30 mls/hr IV .Q24H [facility] Rx#: [id number] Output: Gastric Drainage 50 100 Drainage 650 Mid Abdomen 650 Urine 475 725 335 Other: Voiding Method Indwelling Catheter Indwelling Catheter Indwelling Catheter ABP, PAP, CO, CI - Last Documented Arterial Blood Pressure 91/88 - Exam GENERAL DESCRIPTION: Middle-age man intubated on the vent RESPIRATORY SYSTEM: Unlabored breathing , coarse breath sounds bilaterally HEART: S1 S2 regular rate and rhythm , ABDOMEN: Soft , no tenderness EXTREMITIES: No edema feet - Labs CBC & Chem 7: 03/03/24 05:50 03/03/24 05:50 Labs: Abnormal Lab Results - Last 24 Hours (Table) 03/02/24 03/03/24 03/03/24 Range/Units 17:57 05:50 05:50 RBC 3.70 L (4.30-5.90) m/uL Hgb 9.6 L (13.0-17.5) gm/dL Hct 32.8 L (39.0-53.0) % MCHC 29.4 L (31.0-37.0) g/dL RDW 17.6 H (11.5-15.5) % Chloride 112 H (98-107) mmol/L Carbon Dioxide 17 L (22-30) mmol/L Creatinine 0.43 L (0.66-1.25) mg/dL Glucose 105 H (74-99) mg/dL POC Glucose (mg/dL) 118 H (70-110) mg/dL Microbiology - Last 24 Hours (Table) 03/02/24 17:43 Gram Stain - Preliminary Bronchoalviolar Lavage - Left 02/26/24 04:50 Blood Culture - Final Blood 02/26/24 04:30 Blood Culture - Final Blood Assessment and Plan (1) Pneumonia Current Visit: No Status: Acute Code(s): J18.9 - PNEUMONIA, UNSPECIFIED ORGANISM SNOMED Code(s): 295699590 (2) Sepsis Current Visit: No Status: Acute Code(s): A41.9 - SEPSIS, UNSPECIFIED ORGANISM SNOMED Code(s): 63446178 Plan: 1patient presented to hospital with sepsis in this patient who did have a low- grade fever elevated white count tachycardia meeting criteria for SIRS source likely pneumonia at this patient presenting with increasing shortness of breath cough with evidence of right-sided infiltrate, patient has been admitted to the hospital and will need to cover for resistant gram-positive as well as gram- negative 2-sputum currently growing Pseudomonas blood culture so far negative 3patient is status post bronchoscopy and lavage completed on 03/02/2024 cultures will be followed for now continue with the cefepime adjusting antibiotic further on the basis of repeat culture Dictation was produced using [email or web address] dictation software. please excuse any grammatical, word or spelling errors. Time with Patient: Less than 30
--- NOTE | 2024-03-03 14:01 | P.GSCN ---
History of Present Illness Consult date: 03/03/24 History of present illness: CHIEF COMPLAINT: Shortness of breath Reason for consult tracheostomy placement HISTORY OF PRESENT ILLNESS: This is a 48-year-old male who presented the hospital worsening shortness of breath with acute respiratory failure with pneumonia and mucous plugging. Patient is intubated and on mechanical ventilation. He has required to be reintubated during this admission. And has had prior hospitalizations requiring mechanical ventilation and being reintubated. Patient has a previous tracheostomy. Per pulmonary service on prior bronchoscopy they did note tracheal stenosis. Patient is having difficulty weaning from vent during this hospitalization and surgical service has been consulted for tracheostomy placement. Patient is currently on Levophed. He is on TPN for nutrition support. He is on Lovenox 80 mg twice a day history of DVTs. Patient has history of Crohn's disease with right colectomy and anastomotic breakdown requiring ileostomy placement in September 2021. Patient has a colorectal surgeon out of [facility]. PAST MEDICAL HISTORY: CVA/TIA, Deep Vein Thrombosis (DVT), CVA, Crohn's with ileostomy placement in September 2021 PAST SURGICAL HISTORY: Cholecystectomy, right colectomy and ileostomy placement in September 2021, right below-knee amputation MEDICATIONS: See below ALLERGIES: See below SOCIAL HISTORY: No illicit drug use. REVIEW OF SYSTEMS: CONSTITUTIONAL: Denies fever or chills. HEENT: Denies blurred vision, vision changes, or eye pain. Denies hemoptysis CARDIOVASCULAR: Denies chest pain or pressure. RESPIRATORY: No shortness of breath. GASTROINTESTINAL: See HPI for pertinent findings HEMATOLOGIC: Denies bleeding disorders. GENITOURINARY: Denies any blood in urine or increased urinary frequency. SKIN: Denies pruitis. Denies rash. PHYSICAL EXAM: VITAL SIGNS: Reviewed GENERAL: Well-developed in no acute distress. HEENT: Old tracheostomy scar ABDOMEN: Soft. Nondistended. Ileostomy with stool present NEUROLOGIC: Awake on mechanical ventilation LABORATORY DATA: WBC 6.0 Hgb 9.6 platelets 216 Sodium is 138 potassium 3.5 creatinine 0.43 IMAGING: ASSESSMENT: 1. Acute hypoxic and hypercapnic respiratory failure. Patient having difficulty weaning from the vent 2. Tracheal stenosis 3. Recurrent pneumonia 4. Severe protein calorie malnutrition PLAN: -Further recommendations forthcoming per surgeon regarding tracheostomy placement Physician Burn Nurse note has been reviewed by physician. Signing provider agrees with the documented findings, assessment, and plan of care. Past Medical History Past Medical History: CVA/TIA, Deep Vein Thrombosis (DVT) Additional Past Medical History / Comment(s): Progressing left upper thigh pain and swelling and left leg weakness. 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 Crohns. Ostomy Bag placed in 09/2021. History of Any Multi-Drug Resistant Organisms: MRSA Year Discovered:: 12/14/23 MDRO Source:: MRSA- nasal Past Surgical History: Cholecystectomy, Orthopedic Surgery Additional Past Surgical History / Comment(s): Arm surgery, right leg below knee amputation, ostomy (2021) Past Anesthesia/Blood Transfusion Reactions: No Reported Reaction Additional Past Anesthesia/Blood Transfusion Reaction / Comm: recalled from previous admission Past Psychological History: No Psychological Hx Reported Smoking Status: Former smoker Past Alcohol Use History: None Reported Past Drug Use History: None Reported - Past Family History Father Additional Family Medical History / Comment(s): DAD IN HIS TWENTIES - CAUSE UNKNOWN. Mother Family Medical History: Diabetes Mellitus Brother(s) Family Medical History: Cancer Additional Family Medical History / Comment(s): Kidney cancer as a baby. Medications and Allergies Home Medications Medication Instructions Recorded Confirmed Type Enoxaparin [Lovenox] 80 mg SQ BID@09,209907/07/22 02/25/24 History Pantoprazole [Protonix] 40 mg PO DAILY@0730 07/07/22 02/25/24 History Albuterol Sulfate [Albuterol 2 puff INHALATION RT-Q4H PRN 09/10/22 02/25/24 History Sulfate Hfa] Loperamide HCl [Loperamide] 4 mg PO QID@08,12,16,20 11/10/22 02/25/24 History Ferrous Sulfate [Iron (65 MG 325 mg PO DAILY@89912/12/23 02/25/24 History Elemental)] Heparin Sodium,Porcine/Pf [Heparin 500 unit IV DAILY PRN 12/12/23 02/25/24 History 500 Unit/5 ml (100/ml) Flush] Metoprolol Tartrate [Lopressor] 12.5 mg PO BID@0900,209912/12/23 02/25/24 History Vitamin A 2,400 mcg PO DAILY@0900 12/12/23 02/25/24 History traZODone HCL [Desyrel] 50 mg PO HS PRN 12/12/23 02/25/24 History Cholecalciferol (Vitamin D3) 1,250 mcg PO MOTH 12/13/23 02/25/24 History [Vitamin D3 (1250 Mcg = 50,000 Iu)] Furosemide [Lasix] 40 mg PO BID@0900,1600 #30 tab 12/25/23 02/25/24 Rx Ipratropium-Albuterol Nebulize 3 ml INHALATION RT-QID #100 each 01/14/24 02/25/24 Rx [Duoneb 0.5 mg-3 mg/3 ml Soln] Sodium Chloride 0.65% Nasal [Deep 2 spray NASAL QID PRN ml 01/14/24 02/25/24 Rx Sea (Saline)] 0.9 % Sodium Chloride [Sodium 10 ml IV DAILY PRN 02/25/24 02/25/24 History Chloride Flush] 0.9 % Sodium Chloride [Sodium 10 ml IV DAILY@1000 02/25/24 02/25/24 History Chloride Flush] Heparin Sodium,Porcine/Pf [Heparin 500 unit IV DAILY@1000 02/25/24 02/25/24 History 500 Unit/5 ml (100/ml) Flush] Omeprazole [PriLOSEC] 40 mg PO DAILY@0900 02/25/24 02/25/24 History Cgoez-Xtw-Dbyg 280-160-250 mg 1 packet PO TID 02/25/24 02/25/24 History [Neutra-Phos Packet] Allergies Allergy/AdvReac Type Severity Reaction Status Date / Time No Known Allergies Allergy Verified 02/25/24 18:37 Surgical - Exam Osteopathic Statement: *. No significant issues noted on an osteopathic structural exam other than those noted in the History and Physical/Consult. Vital Signs Temp Pulse Resp BP Pulse Ox 98.1 F 97 22 163/77 87 L 02/25/24 14:57 02/25/24 14:57 02/25/24 14:57 02/25/24 14:57 02/25/24 14:57 Results - Labs 03/03/24 05:50 03/03/24 15:50 Abnormal Lab Results - Last 24 Hours (Table) 03/02/24 03/03/24 03/03/24 Range/Units 17:57 05:50 05:50 RBC 3.70 L (4.30-5.90) m/uL Hgb 9.6 L (13.0-17.5) gm/dL Hct 32.8 L (39.0-53.0) % MCHC 29.4 L (31.0-37.0) g/dL RDW 17.6 H (11.5-15.5) % Chloride 112 H (98-107) mmol/L Carbon Dioxide 17 L (22-30) mmol/L Creatinine 0.43 L (0.66-1.25) mg/dL Glucose 105 H (74-99) mg/dL POC Glucose (mg/dL) 118 H (70-110) mg/dL Microbiology - Last 24 Hours (Table) 03/02/24 17:43 Gram Stain - Preliminary Bronchoalviolar Lavage - Left 02/26/24 04:50 Blood Culture - Final Blood 02/26/24 04:30 Blood Culture - Final Blood Diabetes panel 03/03/24 Range/Units 05:50 Sodium 138 (137-145) mmol/L Potassium 3.5 (3.5-5.1) mmol/L Chloride 112 H (98-107) mmol/L Carbon Dioxide 17 L (22-30) mmol/L BUN 10 (9-20) mg/dL Creatinine 0.43 L (0.66-1.25) mg/dL Glucose 105 H (74-99) mg/dL Calcium 8.8 (8.4-10.2) mg/dL Calcium panel 03/03/24 Range/Units 05:50 Calcium 8.8 (8.4-10.2) mg/dL Phosphorus 3.0 (2.5-4.5) mg/dL Pituitary panel 03/03/24 Range/Units 05:50 Sodium 138 (137-145) mmol/L Potassium 3.5 (3.5-5.1) mmol/L Chloride 112 H (98-107) mmol/L Carbon Dioxide 17 L (22-30) mmol/L BUN 10 (9-20) mg/dL Creatinine 0.43 L (0.66-1.25) mg/dL Glucose 105 H (74-99) mg/dL Calcium 8.8 (8.4-10.2) mg/dL Adrenal panel 03/03/24 Range/Units 05:50 Sodium 138 (137-145) mmol/L Potassium 3.5 (3.5-5.1) mmol/L Chloride 112 H (98-107) mmol/L Carbon Dioxide 17 L (22-30) mmol/L BUN 10 (9-20) mg/dL Creatinine 0.43 L (0.66-1.25) mg/dL Glucose 105 H (74-99) mg/dL Calcium 8.8 (8.4-10.2) mg/dL Assessment and Plan Assessment: 40-year-old male with respiratory failure Continue to wean to extubate Weight 4 pseudomonas cultures Likely tracheostomy or Saturday pending cultures Time with Patient: Less than 30
--- NOTE | 2024-03-03 17:14 | P.PN ---
Subjective Progress Note Date: 03/03/24 This is a 48-year-old male who presented to the emergency department with increased shortness of breath and hypoxia with concerns of possible pneumonia. Patient was placed on nonrebreather and ultimately required BiPAP as patient chronically wears oxygen outpatient and became more obtunded and unresponsive requiring mechanical ventilation and was admitted to the ICU with hypoxia and concerns for pneumonia. Patient follows with Dr. Ivey in the outpatient setting with a significant past medical history of CVA, DVT, Crohn's, previous MRSA infections, right BKA and multiple hospitalizations. Patient is maintained on TPN outpatient for his chronic malnutrition secondary to Crohn's and was most recently hospitalized earlier this year requiring ICU admission and mechanical ventilation with continuous mucous plugging requiring multiple bronchoscopies. Blood pressures are also low requiring pressor support. Antibiotics were started with concerns of pneumonia. Procalcitonin ordered. Recommend infectious disease evaluation and appreciate input and recommendations as well. 02/27/2024 Patient is seen and evaluated in follow-up continues in the ICU on mechanical ventilation with no attempts at weaning today. Patient is off vasopressin although still requiring Levophed for extremely low blood pressures. Hemoglobin is stable above 8.6 and patient remains afebrile with no white count. Sodium is 136 with a potassium of 3.0, 0.38 creatinine and blood sugars being controlled. Phosphorus low on redraw at 1.0 along with magnesium being 1.6. Will replace phosphorus and potassium per protocol and also continue with TPN. Pharmacy and dietary to make adjustments on TPN and electrolytes. Preliminary Gram stain sputum culture showing Pseudomonas aeruginosa and blood cultures thus far have been negative. Chest x-ray today shows improving right perihilar and lower lobe infiltrate. Infectious disease following as well and patient is continued on cefepime along with vancomycin. 02/28/2024 Patient evaluated today in follow up remains in the ICU and on the mechanical ventilator with no attempts being made to wean today. Patient remains on IV cefepime with findings of pseudomonas in the sputum. Chest xray today reveals mild worsening right lower lobe infiltrate. Correlate for atelectasis or pneumonia. Patient remains on TPN at this time. White blood cell count remains normal at 5.2. Hemoglobin stable at 8.2. Sodium better at 3.8. Patient remains on levophed. 02/29/2024 Patient is evaluated today in follow up in the intensive care unit. Patient remains on the mechanical ventilator and did not tolerate attempts at weaning today. Levophed remains on hold as blood pressure is significantly improved. Chest xray today reveals more prominent small bilateral pleural effusions and associated bibasilar opacities could reflect acute infiltrate and or atelectasis. Correlate for fluid overload state. Patient continues on IV cefepime. Remains on TPN also. White blood cell count 4.1, hgb 8.0. Sodium 138, potassium 3.9, BUN 13, creatinine 0.46. 03/01/2024 Patient is eval today in the intensive care unit. Chest x-ray today reveals persistent small bilateral pleural effusions and associated bibasilar acute infiltrate and/or atelectasis. Blood gases are improved. Sedation remains on hold and patient is awake alert and responsive. He remains on the mechanical ventilator. Remains on IV cefepime. Patient is also maintained on TPN. White blood cell count 5.2, hemoglobin 8.4, sodium 136, potassium 4.6, BUN of 13 creatinine 0.53. 03/02/2024 Patient is evaluated today in the intensive care unit in follow-up. Patient remains intubated and sedated on mechanical ventilator, patient is FiO2 of 50%. Chest x-ray today reveals no change in the basilar opacities. Sputum culture showing Pseudomonas. Blood cultures are negative patient continues on IV cefepime. Patient is continued on TPN. White blood cell count of 6.3, hemoglobin 9.2. Sodium level 138 BUN of 14 creatinine 0.52. 03/03/2024 Patient evaluated today in follow up on the ICU. Patient remains intubated and sedated on the mechanical ventilator. Patient was bronched yesterday and pulmonary with plans to bronc the patient again today secondary to continued mucous plugging. Patient remains on IV cefepime. REVIEW OF SYSTEMS: Unable to completely assess as patient is on mechanical ventilation and sedated The rest of the 14-point review of systems is negative. PHYSICAL EXAMINATION: GENERAL: The patient is currently on mechanical ventilation with an FiO2 of 50%, PEEP is 5. Well developed, appears older than stated age, ill-appearing, obese HEENT: Pupils are round and equally reacting to light. EOMI. No scleral icterus. No conjunctival pallor. Normocephalic, atraumatic. No pharyngeal erythema. No thyromegaly. CARDIOVASCULAR: S1 and S2 muffled, PULMONARY: Diminished breath sounds bilaterally with ventilator assist breathing, some bronchial congestion noted ABDOMEN: Soft, nontender, nondistended, normoactive bowel sounds. No palpable organomegaly. Ostomy noted MUSCULOSKELETAL: No joint swelling or deformity. EXTREMITIES: No cyanosis, clubbing, or pedal edema. Right BKA noted, diffusely weak currently on sedation NEUROLOGICAL: Gross neurological examination did not reveal any focal deficits. Unable to completely assess as patient is sedated SKIN: No rashes. Assessment: Shortness of breath, acute hypoxic respiratory failure requiring mechanical ventilation, likely secondary to recurrent mucous plugging with concerns of possible right lower lobe pneumonia Possible right lower lobe pneumonia, present on admission versus recurrent mucous plugging with atelectasis, procalcitonin is 0.63 Electrolyte abnormalities including low phosphorus and low potassium, being replaced per protocol Sepsis, present on admission secondary to above History of tracheobronchomalacia History of anemia History of CVA History of DVT and right BKA History of Crohn's disease with previous bowel perforation with colectomy and end ileostomy with chronic wounds with enterocutaneous fistulas Severe protein calorie malnutrition secondary to Crohn's and maintained on TPN outpatient History of previous tracheostomy with tracheal stenosis History of previous cardiac arrest in 2021 History of MRSA previously Former smoker Obesity with a BMI of 30.8 GI prophylaxis DVT prophylaxis Full code Plan: Patient continues in the ICU on mechanical ventilation FiO2 has been reduced to 50% with a PEEP of 5 Antibiotics have been started with concerns of pneumonia and procalcitonin is mildly elevated at 0.63. Infectious disease following and patient is continued on cefepime Recommend frequent suctioning per pulmonary greaser operator and monitor respiratory status closely for any further mucous plugging. Patient was recently hospitalized in the ICU for quite some time and underwent multiple bronch oscopies Continue local wound care and also consult ostomy nurse Follow-up on repeat labs and replace electrolytes per protocol Cardiology following with no acute changes in medications recommend to continue with telemetry monitoring Continue dietary and pharmacy to adjust TPN Due to multiple complex medical issues, overall prognosis is guarded The impression and plan of care has been dictated by Coral Medina Nurse Practitioner as directed. Dr. Mo MD I have performed a history and examination and MDM of this patient, discussed the same with the dictator, and agree with the dictator's assessment and plan as written ,documented as a scribe. Based on total visit time, I have performed more than 50% of the visit. Objective - Vital Signs Vital signs: Vital Signs Temp 99.1 F 03/03/24 16:00 Pulse 74 03/03/24 16:14 Resp 23 03/03/24 16:00 BP 122/71 03/03/24 16:00 Pulse Ox 100 03/03/24 16:00 FiO2 50 03/03/24 16:00 Intake & Output 03/02/24 03/03/24 03/03/24 18:59 06:59 18:59 Intake Total 623.001 5357.913 991.442 Output Total 525 1475 665 Balance -141.270 666.913 326.442 Weight 93.9 kg Intake: IV 156 703 400 Cefepime 2 gm In Sodium 400 100 Chloride 0.9% 100 ml @ 25 mls/hr IVPB Q8H ANNIE Rx#: [id number] KVO 120 300 300 NORMAL SALINE PRESSURE 36 3 BAG Intake, IV Titration 626.142 3940.913 291.442 Amount Mvi, Adult No.4 with Vit 720.5 K 10 ml Trace (Conc-1Ml/ Dose) 1 ml Sodium Acetate 40 meq Potassium Acetate 40 meq Calcium Gluconate 1 gm Magnesium Sulfate gm 1.5 gm Potassium Phosphate 24 mmol In Amino Acids 5 %/Dextrose 20 % 1,000 ml @ 30 mls/hr IV .Q24H ANNIE Rx#: [id number] Norepinephrine 32 mg In 22.877 22.673 Sodium Chloride 0.9% 218 ml @ 0.08 MCG/KG/MIN 3. 653 mls/hr IV .Q24H ANNIE Rx#:[id number] propofoL 1,000 mg In 174.853 365.740 291.442 Empty Bag 1 bag @ 15 MCG/ KG/MIN 8.573 mls/hr IV . [id number] ANNIE Rx#:[id number] TPN/PPN 30 330 300 Mvi, Adult No.4 with Vit 30 K 10 ml Trace (Conc-1Ml/ Dose) 1 ml Sodium Acetate 30 meq Potassium Acetate 40 meq Calcium Gluconate 1 gm Magnesium Sulfate gm 1 gm Potassium Phosphate 24 mmol In Amino Acids 5 %/Dextrose 20 % 1,000 ml @ 30 mls/hr IV .Q24H ANNIE Rx#: [id number] Mvi, Adult No.4 with Vit 330 300 K 10 ml Trace (Conc-1Ml/ Dose) 1 ml Sodium Acetate 40 meq Potassium Acetate 40 meq Calcium Gluconate 1 gm Magnesium Sulfate gm 1.5 gm Potassium Phosphate 24 mmol In Amino Acids 5 %/Dextrose 20 % 1,000 ml @ 30 mls/hr IV .Q24H [facility] Rx#: [id number] Output: Gastric Drainage 50 100 Drainage 650 Mid Abdomen 650 Urine 475 725 665 Other: Voiding Method Indwelling Catheter Indwelling Catheter Indwelling Catheter ABP, PAP, CO, CI - Last Documented Arterial Blood Pressure 91/88 - Labs CBC & Chem 7: 03/03/24 05:50 03/03/24 15:50 Labs: Abnormal Lab Results - Last 24 Hours (Table) 03/02/24 03/03/24 03/03/24 Range/Units 17:57 05:50 05:50 RBC 3.70 L (4.30-5.90) m/uL Hgb 9.6 L (13.0-17.5) gm/dL Hct 32.8 L (39.0-53.0) % MCHC 29.4 L (31.0-37.0) g/dL RDW 17.6 H (11.5-15.5) % Chloride 112 H (98-107) mmol/L Carbon Dioxide 17 L (22-30) mmol/L Creatinine 0.43 L (0.66-1.25) mg/dL Glucose 105 H (74-99) mg/dL POC Glucose (mg/dL) 118 H (70-110) mg/dL Triglycerides 290.00 H (0.00-149.00) mg/dL Microbiology - Last 24 Hours (Table) 03/02/24 17:43 Gram Stain - Preliminary Bronchoalviolar Lavage - Left 02/26/24 04:50 Blood Culture - Final Blood 02/26/24 04:30 Blood Culture - Final Blood Assessment and Plan Time with Patient: Less than 30
--- NOTE | 2024-03-03 17:23 | P.PN ---
Subjective Progress Note Date: 03/03/24 Patient is a 48-year-old male with complex past medical history including CVA, previous DVTs, right BKA, cardiac arrest in 2021, Crohn's disease, enterocutaneous fistulas, previous bowel resection, ventilator dependent respiratory failure, previous tracheostomy and reversal. Recently was admitted 12/13/2023 through 12/25/2023 for pneumonia and respiratory failure due to mucous plugging. He was intubated and placed on mechanical ventilator for approximately 6 days. He did have a bronchoscopy with BAL, microbiology positive for haemophilus influenza. Eventually, discharged home, and returned 01/02/24 for GIB from his ostomy. Was reintubated and did spend some time on the ventilator for reccurent pneumonia and mucous plugging. During this time, had multiple bronchoscopies with BAL, once on 12/31/2023 and again on 01/03/2024, isolated organisms including MRSA and Pseudomonas. Patient was eventually discharged back home on 01/16/2024. More recently, patient had an ER visit for increased work of breathing on February 22, and the patient was sent home. Returned for similar symptoms yesterday afternoon. Chest x-ray done on admission showing cardiomegaly with pulmonary vascular congestion and questionable right lower lobe infiltrate or effusion. CBC: WBC count 11.2, hemoglobin 10.5, hematocrit 37.3, platelets 315. CMP: Sodium 138, potassium 4.8, chloride 97, serum bicarb 39, BUN 23, creatinine 0.45, glucose 103. Lactic 1. LFTs unremarkable. Troponin less than 0.012. I am evaluating this patient emergency department, he is currently unresponsive, to even painful stimuli. He is on a 15 L nonrebreather. SpO2 88%. Diminished breath sounds on the right Will place this patient on BiPAP with initial settings 16/5 FiO2 to be titrated accordingly. Will get a stat ABG. We will repeat chest x-ray. I did talk to the patient's son, Alan, he is adamant that the patient remain a full code, would want the patient intubated if necessary. On reassessment in the emergency department, patient remained on BiPAP with settings 16/5 100%. He remains unresponsive to painful stimuli. Now only achieving tidal volumes ranging from 100 to 200 cc. Unfortunately, we were not able to to get an initial blood gas. I recommended that the patient be moved to the trauma bay and intubated by the [employer]. Follow-up chest x-ray showing the endotracheal tube in appropriate position above the avery. Orogastric tube coursing below the diaphragm. Initial ventilator settings include assist-co ntrol, respiratory rate 20, tidal volume 500, FiO2 100%, PEEP of 5. Currently, patient is fairly asynchronous with the ventilator and he is biting the tube. There are copious amounts of blood-tinged sputum in the ET tube. Elevated peak airway pressures of 45. Static pressure 32. The nurses are working on appropriately sedating the patient with propofol. Postintubation, the patient did become hypotensive, currently receiving his second liter of normal saline. Will also start the patient on norepinephrine to maintain a MAP of greater than 65 mmHg. I did insert a left femoral arterial line. Following this, we did obtain an ABG showing profound hypercapnic and hypoxic respiratory failure. PaO2 of 89, pCO2 98, pH of 7.11. Appropriate ventilator adjustments were made including increasing the rate to 26 and PEEP can be increased to 8. Patient may eventually need repeat bronchoscopy with BAL. Case will be discussed with Dr. Munoz. Patient is still waiting for a bed in the intensive care unit. I did call and update patient's son Alan about his change in clinical condition. 02/27/24 - Patient seen at bedside today, in the ICU. He is on day 3 of his hospital stay, admitted on 02/25/24 and in the ICU since 02/26/24. He remains mechanically ventilated intubated since 02/26/24. He remains on assist-control with a rate of 26, volume 500, FiO2 50% (down from 60%) and a PEEP of 8. ABG done today (on 60% FiO2) showed pO2 126, pCO2 35, pH is 7.50, indicating a mixed respiratory and metabolic alkalosis. Abnormality shown on the patient's lab this morning, inconsistent and drastic changes from previous labs. Will perform a redraw today to get a better idea on how the labs are changed. He remains on vasopressin 0.03 units/min, Levophed at 0.07 mcg/kg/min (6.8 mcg/min), propofol 75 mcg/kg/min, receiving TPN at 30 cc/h (which is goal). Patient's blood pressure today 131/53. Additionally, patient receiving cefepime and vancomycin secondary to leukocytosis and a Tmax on 02/26/24 of 100.5 F. Sputum culture currently pending. Chest x-ray from this morning showed improving right perihilar and lower lobe infiltrate. Additionally, patient is currently receiving TPN ([employer]) at 30 cc/h which is goal for dietitian. 02/28/24 - Patient seen at bedside today, in the ICU. He is on day 4 of his hospital stay, admitted on 02/25/24 and in the ICU since 02/26/24. He remains intubated and mechanically ventilated since 02/26/24. He remains on assist- control with a rate of 25, [place] 500, FiO2 40% and PEEP of 8. ABG done today (while on 100% FiO2) showed pO2 255, pCO2 37, pH 7.44 indicating slight respiratory alkalosis. The abnormalities noted on the patient's labs from yesterday were rechecked on a couple of occasion and seem to be accurate. This morning labs showed WBC 5.2, hemoglobin 8.2, sodium 139, potassium 3.8, chloride 114, BUN 10, creatinine 0.44, calcium 8.2, phosphorus 2.6, magnesium 2.0. Patient received supplementation with sodium phosphate, potassium chloride and magnesium sulfate. He remains on Levophed 0.07 mcg/kg/min (7 mcg/min), propofol 75 mcg/kg/min, normal saline at 30 cc/h and TPN at 30 cc/h (which is goal). Additionally, patient remains on cefepime and vancomycin; sputum culture is final for Pseudomonas aeruginosa that any resistance. Blood cultures continue to be pending at this time. Chest x-ray from this morning continue show right lower lobe infiltrate. 02/29/24 - Patient seen at bedside today, in the ICU. He is on day 5 of his hospital stay, admitted on 02/25/24 and then the ICU since 02/26/24. He remains intubated mechanically ventilated since 02/26/24. He remains on assist-control with a rate of 26, volume 500, FiO2 50%, PEEP of 8. ABG completed today showed pO2 96, pCO2 30, pH 7.51 indicating a respiratory and metabolic alkalosis. On labs drawn today patient's WBC is 4.1, hemoglobin 8.0, sodium 138, chloride 114, potassium 3.9, BUN 13, creatinine 0.46, phosphorus 2.2, magnesium 1.9. Patient received 1 g magnesium sulfate this morning and 15 mmol sodium phosphate. He remains on propofol 75 mcg/mg/min, Levophed at 0.03 mcg/kg/min (~3 mcg/min) and TPN at 30 cc/h (which is goal). He remains on 0.9% normal saline at 20 cc/h, and cefepime 2 g every 8 hours. Blood cultures remain pending at this time. Chest x-ray shows more prominent small bilateral pleural effusions and associated bibasilar opacities. The patient is seen today March 01, 2024 in follow-up on the regular medical floor. He remains intubated on the mechanical ventilator and assist-control mode with a rate of 26, tidal volume 500, FiO2 50% and a PEEP of 8. Morning blood gases revealed a PaO2 111, pCO2 22 and a pH of 7.48. He is currently on propofol at 55 mcg/kg/min. Receiving TPN at 30 mL/h. Normal saline at KVO. He remains on cefepime for pseudomonal bronchial infection. White count 5.2. Hemoglobin 8.4. Platelets 184. Sodium 136. Potassium 3.5. Bicarb 20. BUN 13. Creatinine 0.53. Glucose 87. He is afebrile. Hemodynamically stable. Chest x-ray reveals persistent small bilateral effusions. He is continued on DuoNebs. Lovenox for DVT prophylaxis. On today's evaluation of 03/02/2024, the patient is being seen in follow-up in the intensive care unit. The patient remains intubated on the mechanical ventilator. The patient is sedated and currently propofol is running at 60 mcg/kg/min. He is calm and comfortable and synchronous with mechanical ventilator. No significant agitation. He is on assist-control mode of mechanical ventilation at rate of 26, tidal volume of 500, FiO2 of 60% with a PEEP of 8. Chest x-ray showing a component of pulm vessel congestion, atelectatic changes in lung bases and small bilateral pleural effusions. ET tube is around 5 cm above the avery. The blood gas showed a pH of 7.41 with a pCO2 of 34 and pO2 of 92 and there has been some improvement in his oxygenation over the past 24 hours. He remains NPO. He remains on TPN for nutritional support which is running at rate of 30 cc an hour. He has an ileostomy and output from the ileostomy is quite high and he has produced around 600 cc of output from his ileostomy over the past 8 hours. No signs of any active bleeding. Hemodynamically, the patient is on IV fluids at KVO. He is also on pressors and norepinephrine is running at a low dose of 0.02 mcg/kg/min. He is covered with broad-spectrum antibiotics and he is currently on IV cefepime. He did grow Pseudomonas in his sputum analysis and underlying pseudomonal infection/pneumonia cannot be completely excluded. In terms of his blood work from today, the patient has a white cell count of 6.3, hemoglobin 9.1. And a platelet count of 197. The rest of the electrolytes are all stable with a serum bicarb of 19, sodium of 138, potassium level 3.6, chloride 111, BUN is 14 with a creatinine of 0.5. He has ionized calcium level was at 4.9. His LFTs are essentially within normal limits. Total protein is at 6.7 with an albumin level of 2.8. Note that the patient was given a trial of extubation yesterday. Within 2 hours postextubation, the patient had to be reintubated because of increased work of breathing and hypoxic respiratory failure. As such, the patient has been kept intubated for now. The patient is arousable even while being on sedation and can follow some simple commands. On 03/03/2024, the patient is being seen for a follow-up. As mentioned earlier, the patient failed extubation on 03/01/2024 and the bronchoscopy was done on 03/02/2024 and it showed copious amount of mucous plugs and therapeutic airway suctioning was done. Repeat bronchoscopy was done today and similar abundant respiratory secretions and mucous plugs were identified although they were somewhat less compared to yesterday the total amount of aspirate was in the order of 15 to 20 cc of purulent material. As such, I am not seeing a immediate successful way of extubating this patient especially the patient has poor ability to perform pulmonary toileting and has a weak cough and has an underlying tracheal stenosis with ongoing pneumonia. Based on that, I made recommendations for insertion of a tracheostomy tube. Meanwhile, this morning, the patient remains on the mechanical ventilator. He is on assist-control mode at a rate of 26 with a tidal volume of 500 and FiO2 of 50% with a PEEP of 6. The blood gases were not obtained today. Chest x-ray findings are stable and the patient has some slight improvement in the bibasilar pulmonary opacities seen earlier. Blood work from today shows a WBC count of 6 with a hemoglobin 9.6 and a platelet count of 216. BUN is 10 with a creatinine of 0.4 and a sodium levels at 138. The patient remains on TPN for nutritional support and the patient is on TPN at rate of 30 cc an hour. He remains on low-dose norepinephrine at 0.05 mcg/kg/min and the patient remains on propofol running at 60 mcg/kg/min and the patient is arousable even while being on sedation. No other significant events overnight. Objective - Vital Signs Vital signs: Vital Signs Temp 97.9 F 03/03/24 04:00 Pulse 73 03/03/24 09:30 Resp 26 H 03/03/24 09:30 BP 114/55 03/03/24 09:30 Pulse Ox 98 03/03/24 09:30 FiO2 50 03/03/24 08:00 Intake & Output 03/02/24 03/03/24 03/03/24 18:59 06:59 18:59 Intake Total 510.135 0396.913 380 Output Total 525 1475 155 Balance -141.270 666.913 225 Weight 93.9 kg Intake: IV 156 703 190 Cefepime 2 gm In Sodium 400 100 Chloride 0.9% 100 ml @ 25 mls/hr IVPB Q8H ANNIE Rx#: [id number] KVO 120 300 90 NORMAL SALINE PRESSURE 36 3 BAG Intake, IV Titration 352.010 2697.913 100 Amount Mvi, Adult No.4 with Vit 720.5 K 10 ml Trace (Conc-1Ml/ Dose) 1 ml Sodium Acetate 40 meq Potassium Acetate 40 meq Calcium Gluconate 1 gm Magnesium Sulfate gm 1.5 gm Potassium Phosphate 24 mmol In Amino Acids 5 %/Dextrose 20 % 1,000 ml @ 30 mls/hr IV .Q24H ANNIE Rx#: [id number] Norepinephrine 32 mg In 22.877 22.673 Sodium Chloride 0.9% 218 ml @ 0.08 MCG/KG/MIN 3. 653 mls/hr IV .Q24H ANNIE Rx#:[id number] propofoL 1,000 mg In 174.853 365.740 100 Empty Bag 1 bag @ 15 MCG/ KG/MIN 8.573 mls/hr IV . [id number] ANNIE Rx#:[id number] TPN/PPN 30 330 90 Mvi, Adult No.4 with Vit 30 K 10 ml Trace (Conc-1Ml/ Dose) 1 ml Sodium Acetate 30 meq Potassium Acetate 40 meq Calcium Gluconate 1 gm Magnesium Sulfate gm 1 gm Potassium Phosphate 24 mmol In Amino Acids 5 %/Dextrose 20 % 1,000 ml @ 30 mls/hr IV .Q24H ANNIE Rx#: [id number] Mvi, Adult No.4 with Vit 330 90 K 10 ml Trace (Conc-1Ml/ Dose) 1 ml Sodium Acetate 40 meq Potassium Acetate 40 meq Calcium Gluconate 1 gm Magnesium Sulfate gm 1.5 gm Potassium Phosphate 24 mmol In Amino Acids 5 %/Dextrose 20 % 1,000 ml @ 30 mls/hr IV .Q24H ANNIE Rx#: [id number] Output: Gastric Drainage 50 100 Drainage 650 Mid Abdomen 650 Urine 475 725 155 Other: Voiding Method Indwelling Catheter Indwelling Catheter Indwelling Catheter ABP, PAP, CO, CI - Last Documented Arterial Blood Pressure 91/88 - Exam GENERAL: A 48-year-old male patient, currently intubated mechanically ventilated and sedated. Arousable and follows some simple commands. Orotracheal and orogastric tube are both in place Head exam was generally normal. There was no scleral icterus or corneal arcus. Mucous membranes were moist. HEENT: No scleral icterus. No conjunctival pallor. Normocephalic, atraumatic. CARDIOVASCULAR: S1 and S2 present. No murmurs, rubs, or gallops. PULMONARY: Diminished breath sounds were bilaterally. No wheezes rhonchi or crackles ABDOMEN: Soft, nontender, nondistended, normoactive bowel sounds. No palpable organomegaly. Functioning ileostomy. The patient also has evidence of enteroc utaneous fistula over the anterior abdominal wall MUSCULOSKELETAL: No joint swelling or deformity. EXTREMITIES: No cyanosis, clubbing, or pedal edema. NEUROLOGICAL: Unable to fully assess the patient has intubated mechanically ventilated and sedated. SKIN: No rashes. Left chest PICC line. - Labs CBC & Chem 7: 03/03/24 05:50 03/03/24 15:50 Labs: Abnormal Lab Results - Last 24 Hours (Table) 03/02/24 03/02/24 03/03/24 Range/Units 12: 17:57 05:50 RBC (4.30-5.90) m/uL Hgb (13.0-17.5) gm/dL Hct (39.0-53.0) % MCHC (31.0-37.0) g/dL RDW (11.5-15.5) % Chloride 112 H (98-107) mmol/L Carbon Dioxide 17 L (22-30) mmol/L Creatinine 0.43 L (0.66-1.25) mg/dL Glucose 105 H (74-99) mg/dL POC Glucose (mg/dL) 115 H 118 H (70-110) mg/dL 03/03/24 Range/Units 05:50 RBC 3.70 L (4.30-5.90) m/uL Hgb 9.6 L (13.0-17.5) gm/dL Hct 32.8 L (39.0-53.0) % MCHC 29.4 L (31.0-37.0) g/dL RDW 17.6 H (11.5-15.5) % Chloride (98-107) mmol/L Carbon Dioxide (22-30) mmol/L Creatinine (0.66-1.25) mg/dL Glucose (74-99) mg/dL POC Glucose (mg/dL) (70-110) mg/dL Microbiology - Last 24 Hours (Table) 03/02/24 17:43 Gram Stain - Preliminary Bronchoalviolar Lavage - Left 02/26/24 04:50 Blood Culture - Final Blood 02/26/24 04:30 Blood Culture - Final Blood Assessment and Plan Plan: Acute hypoxic and hypercapnic respiratory failure, requiring mechanical intubation on 02/26/24. The patient is known to have chronic respiratory i nsufficiency as the patient has poor ability to perform pulmonary toileting, weak cough, and has had recurrent pneumonias with gram-negative and MRSA. Most recent sputum sample from 02/26/2024 is positive for Pseudomonas aeruginosa and the patient is currently on IV cefepime. Patient failed BiPAP therapy during this current admission the patient had to be intubated and placed on the mechanical ventilator on 02/26/2024. The patient was given a trial of extubation on 03/01/2024 and within 2 hours of extubation he had to be reintubated for increased work of breathing and hypoxic respiratory failure. Bronchoscopy was done on 03/02/2024 and 03/03/2024 revealed copious amount of purulent respiratory secretions and mucous plugs which probably contributing to his ongoing respiratory failure. The patient has poor ability to cough and perform pulmonary toileting and clear his respiratory secretions. He does have also an underlying tracheal stenosis Tracheal stenosis at the site of the previously inserted tracheostomy tube, visualized on most recent bronchoscopy Previous history of recurrent ventilator dependent respiratory failure, secondary to pneumonia and mucous plugging. The patient has undergone previous bronchoscopies and cultures from bronchoscopy on 12/31/2023 was positive for MRSA and subsequent bronchoscopy on 01/03/2024 was positive for Klebsiella pneumoniae and Bella glabrata. Most recent sputum analysis from 02/26/2024 was positive for Pseudomonas aeruginosa and the patient is currently on IV cefepime. Repeat bronchioloalveolar lavage from 03/02/2024 is pending. Sepsis secondary to above, recurrent pneumonia, currently low-dose norepinephrine Leukocytosis, resolved Crohn's disease, with previous complication of bowel perforation s/p colectomy and diverting ileostomy. The patient also has had previous history of abdominal wall bleeding there is currently inactive and stable. The patient has a high output ileostomy TPN for nutritional support Electrolyte imbalance at time of admission including hyponatremia, hypokalemia, hypophosphatemia, hypomagnesemia and hyperphosphatemia, all resolved Tracheobronchomalacia History of DVT, on therapeutic dose of Lovenox CVA/TIA, with residual left-sided weakness Right BKA History of asystole/cardiac arrest in 2021 Plan: The patient will likely failed extubation. Serial bronchoscopies on 03/02/2024 and 03/03/2024 showed copious and abundant respiratory secretions and mucous plugs which will hinder this patient's ability to extubate successfully. Noted the patient has a very weak cough, poor ability to clear respiratory secretions and the patient also has a tracheal stenosis. Based on that, I made recommendations to proceed with a tracheostomy tube insertion to facilitate his weaning process and perform adequate pulmonary toileting and get this patient off sedation. Repeat bronchioloalveolar lavage was done on 03/02/2024 and the culture still pending Continue IV cefepime Continue vent support TPN for nutritional support Continue bronchodilators Lovenox for DVT prophylaxis Will continue to follow make further recommendations based on his progress. Critical care evaluation that was done more than 30 minutes. Time with Patient: Greater than 30
--- NOTE | 2024-03-03 17:24 | P.PCN ---
Date of Procedure: 03/03/24 Operative Findings: Preoperative Diagnosis: Acute hypoxic respiratory failure/pneumonia/mucous plugs Postoperative Diagnosis: Same Procedure(s) Performed: Bronchoscopy, removal of mucous plugs Anesthesia: MAC Surgeon: Estela Holt Estimated Blood Loss (ml): 0 Pathology: other Condition: critical Disposition: ICU Operative Findings: Bronchoscopy and the bronchoalveolar lavage Post intubation, the patient was placed on the mechanical ventilator on assist- control mode. An adapter was attached to the orotracheal tube and following that the flexor bronchoscope was inserted to the orotracheal tube and was advanced into the lower trachea. The distal trachea was full of respiratory secretions that were tenacious and thick and purulent. Therapeutic airway suctioning was done. More secretions were identified in the bilateral mainstem bronchi and the various segments of the lower lobes bilaterally. As such, therapeutic airway suctioning was completed and a total of 15-20 cc of tenacious thick material was aspirated from the patient's tracheobronchial tree. Following that, and airway inspection was done. Bilateral mainstem bronchi was patent. Examination of the right side including the right mainstem bronchus, right upper lobe bronchus, bronchus intermedius, right middle lobe bronchus and the right lower lobe bronchus and the various 10 segments on the right and examination of the left side including left mainstem bronchus, left upper lobe bronchus and the left lower bronchus and the various 8 segments on the left. The amount of respiratory secretions and mucous plugs were less compared to yesterday, nevertheless, the patient had significant amount of respiratory secretions which would impair and hinder his ability for successful extubation. Based on that, I am recommending a tracheostomy tube insertion to facilitate his pulmonary toileting and ongoing respiratory care and this will also facilitate our ability to get this patient off sedation. General surgery was consulted for tracheostomy tube insertion.
[2024-03-03 18:11] LABS: Glucose,Whole Blood 116 mg/dL (70-110)
[2024-03-03] MEDS: POTASSIUM CHLORIDE 20 MEQ in WATER FOR INJECTION 1 100ML.BAG IVPB STA (20:04)
[2024-03-03 22:44] LABS: Glucose,Whole Blood 95 mg/dL (70-110)
[2024-03-03] MEDS: MVI, ADULT NO.4 WITH VIT K 10 ML, TRACE (CONC-1ML/DOSE) 1 ML, SODIUM ACETATE 40 MEQ, PO... IV SCH (22:44)
[2024-03-04 05:35] LABS: Glucose,Whole Blood 110 mg/dL (70-110)
[2024-03-04 06:29] LABS: Anisocytosis Slight; Basophils % (A) 1 %; Eosinophils # (A) 0.3 k/uL (0-0.7); Eosinophils % (A) 6 %; HCT 30.8 % (39.0-53.0); Hypochromasia Marked; Lymphocytes # (A) 1.2 k/uL (1.0-4.8); Lymphocytes % (A) 23 %; MCH 26.1 pg (25.0-35.0); MCHC 29.2 g/dL (31.0-37.0); MCV 89.2 fL (80.0-100.0); Mean Platelet Volume 9.3; Monocytes # (A) 0.3 k/uL (0-1.0); Monocytes % (A) 6 %; Neutrophils # (A) 3.1 k/uL (1.3-7.7); Neutrophils % (A) 62 %; Platelet Count 225 k/uL (150-450); RBC 3.45 m/uL (4.30-5.90); RDW 17.4 % (11.5-15.5)
[2024-03-04 06:31] LABS: African American GFR (CKD) >90 (>60 ml/min/1.73 sqM); Anion Gap 4 mmol/L; Blood Urea Nitrogen 9 mg/dL (9-20); Calcium 8.7 mg/dL (8.4-10.2); Carbon Dioxide 19 mmol/L (22-30); Chloride 114 mmol/L (98-107); Glucose 100 mg/dL (74-99); Magnesium 1.9 mg/dL (1.6-2.3); Non-African American GFR(CKD) >90 (>60 ml/min/1.73 sqM); Phosphorus 3.5 mg/dL (2.5-4.5); Potassium 3.8 mmol/L (3.5-5.1); Sodium 137 mmol/L (137-145)
[2024-03-04] MEDS: POTASSIUM CHLORIDE 10 MEQ in WATER FOR INJECTION 1 100ML.BAG IVPB SCH (06:47)
[2024-03-04] MEDS: MAGNESIUM SULFATE-D5W PMX 1 GM in DEXTROSE/WATER 1 100ML.BAG IVPB ONE (06:48)
--- NOTE | 2024-03-04 07:39 | XR ---
EXAMINATION TYPE: XR chest 1V portable DATE OF EXAM: 03/04/2024 3:40 AM COMPARISON: 03/03/2024 CLINICAL INDICATION: Male, 48 years old with history of mechanical ventilation, FINDINGS: Indwelling tubes and catheters are unchanged. No change in bibasilar opacities. Stable appearance of the cardio-mediastinal structures at this time. IMPRESSION: 1. Stable portable chest. Clinical correlation and follow up until resolution is recommended. [facility], , 03/04/2024 7:36 AM
[2024-03-04 11:59] LABS: Glucose,Whole Blood 95 mg/dL (70-110)
--- NOTE | 2024-03-04 13:39 | P.PN ---
Subjective Progress Note Date: 03/04/24 SURGICAL PROGRESS NOTE CHIEF COMPLAINT: Respiratory failure HISTORY OF PRESENT ILLNESS: Patient remains in the ICU and intubated on mechanical ventilation. Afebrile. WBC 5.0 Hgb 9.0 platelets 225 PHYSICAL EXAM: VITAL SIGNS: Reviewed. GENERAL: Well-developed in no acute distress. HEENT: Old tracheostomy scar noted on neck ASSESSMENT: 1. Acute hypoxic and hypercapnic respiratory failure. Patient having difficulty weaning from the vent 2. Tracheal stenosis. Prior history of tracheostomy 3. Recurrent pneumonia 4. Severe protein calorie malnutrition PLAN: -Patient is scheduled for tracheostomy placement tomorrow with Dr. Tiana Maynard this evening and tomorrow morning for procedure Physician Lining Maker note has been reviewed by physician. Signing provider agrees with the documented findings, assessment, and plan of care. Objective - Vital Signs Vital signs: Vital Signs Temp 98.4 F 03/04/24 12:00 Pulse 80 03/04/24 12:45 Resp 16 03/04/24 12:45 BP 122/53 03/04/24 12:45 Pulse Ox 99 03/04/24 12:45 FiO2 50 03/04/24 12:00 Intake & Output 03/03/24 03/04/24 03/04/24 18:59 06:59 18:59 Intake Total 1133.547 801.037 613.152 Output Total 1565 1300 400 Balance -431.453 -498.963 213.152 Intake: IV 460 390 400 Cefepime 2 gm In Sodium 100 50 Chloride 0.9% 100 ml @ 25 mls/hr IVPB Q8H ANNIE Rx#: [id number] KVO 360 390 Mvi, Adult No.4 with Vit 150 K 10 ml Trace (Conc-1Ml/ Dose) 1 ml Sodium Acetate 40 meq Potassium Acetate 40 meq Calcium Gluconate 1 gm Magnesium Sulfate gm 1.5 gm Potassium Phosphate 24 mmol In Amino Acids 5 %/Dextrose 20 % 1,000 ml @ 30 mls/hr IV .Q24H ANNIE Rx#: [id number] Potassium Chloride 10 meq 200 In Water For Injection 1 100ml.bag @ 100 mls/hr IVPB Q1H ANNIE Rx#: [id number] Intake, IV Titration 313.547 381.037 213.152 Amount Norepinephrine 32 mg In 22.105 9.011 15.423 Sodium Chloride 0.9% 218 ml @ 0.08 MCG/KG/MIN 3. 653 mls/hr IV .Q24H ANNIE Rx#:[id number] propofoL 1,000 mg In 291.442 372.026 197.729 Empty Bag 1 bag @ 15 MCG/ KG/MIN 8.573 mls/hr IV . [id number] ANNIE Rx#:[id number] TPN/PPN 360 30 Mvi, Adult No.4 with Vit 360 30 K 10 ml Trace (Conc-1Ml/ Dose) 1 ml Sodium Acetate 40 meq Potassium Acetate 40 meq Calcium Gluconate 1 gm Magnesium Sulfate gm 1.5 gm Potassium Phosphate 24 mmol In Amino Acids 5 %/Dextrose 20 % 1,000 ml @ 30 mls/hr IV .Q24H ANNIE Rx#: [id number] Output: Drainage 650 Mid Abdomen 650 Urine 915 800 400 Stool 500 Other: Voiding Method Indwelling Catheter Indwelling Catheter Indwelling Catheter ABP, PAP, CO, CI - Last Documented Arterial Blood Pressure 91/88 - Labs CBC & Chem 7: 03/04/24 05:43 03/04/24 05:43 Labs: Abnormal Lab Results - Last 24 Hours (Table) 03/03/24 03/03/24 03/04/24 Range/Units 05:50 18:09 05:43 RBC 3.45 L (4.30-5.90) m/uL Hgb 9.0 L (13.0-17.5) gm/dL Hct 30.8 L (39.0-53.0) % MCHC 29.2 L (31.0-37.0) g/dL RDW 17.4 H (11.5-15.5) % Chloride (98-107) mmol/L Carbon Dioxide (22-30) mmol/L Creatinine (0.66-1.25) mg/dL Glucose (74-99) mg/dL POC Glucose (mg/dL) 116 H (70-110) mg/dL Triglycerides 290.00 H (0.00-149.00) mg/dL 03/04/24 Range/Units 05:43 RBC (4.30-5.90) m/uL Hgb (13.0-17.5) gm/dL Hct (39.0-53.0) % MCHC (31.0-37.0) g/dL RDW (11.5-15.5) % Chloride 114 H (98-107) mmol/L Carbon Dioxide 19 L (22-30) mmol/L Creatinine 0.44 L (0.66-1.25) mg/dL Glucose 100 H (74-99) mg/dL POC Glucose (mg/dL) (70-110) mg/dL Triglycerides (0.00-149.00) mg/dL Microbiology - Last 24 Hours (Table) 03/02/24 17:43 Gram Stain - Preliminary Bronchoalviolar Lavage - Left Bronchial Washings Culture - Preliminary Gram Neg Bacilli Assessment and Plan Assessment: 48 yo male s/p hypoxic respiratory failure requiring tracheostomy -OR tomorrow -NPO -hold lovenox tonight
--- NOTE | 2024-03-04 15:34 | P.PN ---
Subjective Progress Note Date: 03/04/24 Patient is a 48-year-old male with complex past medical history including CVA, previous DVTs, right BKA, cardiac arrest in 2021, Crohn's disease, enterocutaneous fistulas, previous bowel resection, ventilator dependent respiratory failure, previous tracheostomy and reversal. Recently was admitted 12/13/2023 through 12/25/2023 for pneumonia and respiratory failure due to mucous plugging. He was intubated and placed on mechanical ventilator for approximately 6 days. He did have a bronchoscopy with BAL, microbiology positive for haemophilus influenza. Eventually, discharged home, and returned 01/02/24 for GIB from his ostomy. Was reintubated and did spend some time on the ventilator for reccurent pneumonia and mucous plugging. During this time, had multiple bronchoscopies with BAL, once on 12/31/2023 and again on 01/03/2024, isolated organisms including MRSA and Pseudomonas. Patient was eventually discharged back home on 01/16/2024. More recently, patient had an ER visit for increased work of breathing on February 22, and the patient was sent home. Returned for similar symptoms yesterday afternoon. Chest x-ray done on admission showing cardiomegaly with pulmonary vascular congestion and questionable right lower lobe infiltrate or effusion. CBC: WBC count 11.2, hemoglobin 10.5, hematocrit 37.3, platelets 315. CMP: Sodium 138, potassium 4.8, chloride 97, serum bicarb 39, BUN 23, creatinine 0.45, glucose 103. Lactic 1. LFTs unremarkable. Troponin less than 0.012. I am evaluating this patient emergency department, he is currently unresponsive, to even painful stimuli. He is on a 15 L nonrebreather. SpO2 88%. Diminished breath sounds on the right Will place this patient on BiPAP with initial settings 16/5 FiO2 to be titrated accordingly. Will get a stat ABG. We will repeat chest x-ray. I did talk to the patient's son, Alan, he is adamant that the patient remain a full code, would want the patient intubated if necessary. On reassessment in the emergency department, patient remained on BiPAP with settings 16/5 100%. He remains unresponsive to painful stimuli. Now only achieving tidal volumes ranging from 100 to 200 cc. Unfortunately, we were not able to to get an initial blood gas. I recommended that the patient be moved to the trauma bay and intubated by the CORRECTIVE THERAPIST. Follow-up chest x-ray showing the endotracheal tube in appropriate position above the avery. Orogastric tube coursing below the diaphragm. Initial ventilator settings include assist-co ntrol, respiratory rate 20, tidal volume 500, FiO2 100%, PEEP of 5. Currently, patient is fairly asynchronous with the ventilator and he is biting the tube. There are copious amounts of blood-tinged sputum in the ET tube. Elevated peak airway pressures of 45. Static pressure 32. The nurses are working on appropriately sedating the patient with propofol. Postintubation, the patient did become hypotensive, currently receiving his second liter of normal saline. Will also start the patient on norepinephrine to maintain a MAP of greater than 65 mmHg. I did insert a left femoral arterial line. Following this, we did obtain an ABG showing profound hypercapnic and hypoxic respiratory failure. PaO2 of 89, pCO2 98, pH of 7.11. Appropriate ventilator adjustments were made including increasing the rate to 26 and PEEP can be increased to 8. Patient may eventually need repeat bronchoscopy with BAL. Case will be discussed with Dr. Munoz. Patient is still waiting for a bed in the intensive care unit. I did call and update patient's son Alan about his change in clinical condition. 02/27/24 - Patient seen at bedside today, in the ICU. He is on day 3 of his hospital stay, admitted on 02/25/24 and in the ICU since 02/26/24. He remains mechanically ventilated intubated since 02/26/24. He remains on assist-control with a rate of 26, volume 500, FiO2 50% (down from 60%) and a PEEP of 8. ABG done today (on 60% FiO2) showed pO2 126, pCO2 35, pH is 7.50, indicating a mixed respiratory and metabolic alkalosis. Abnormality shown on the patient's lab this morning, inconsistent and drastic changes from previous labs. Will perform a redraw today to get a better idea on how the labs are changed. He remains on vasopressin 0.03 units/min, Levophed at 0.07 mcg/kg/min (6.8 mcg/min), propofol 75 mcg/kg/min, receiving TPN at 30 cc/h (which is goal). Patient's blood pressure today 131/53. Additionally, patient receiving cefepime and vancomycin secondary to leukocytosis and a Tmax on 02/26/24 of 100.5 F. Sputum culture currently pending. Chest x-ray from this morning showed improving right perihilar and lower lobe infiltrate. Additionally, patient is currently receiving TPN ([employer]) at 30 cc/h which is goal for dietitian. 02/28/24 - Patient seen at bedside today, in the ICU. He is on day 4 of his hospital stay, admitted on 02/25/24 and in the ICU since 02/26/24. He remains intubated and mechanically ventilated since 02/26/24. He remains on assist- control with a rate of 25, [place] 500, FiO2 40% and PEEP of 8. ABG done today (while on 100% FiO2) showed pO2 255, pCO2 37, pH 7.44 indicating slight respiratory alkalosis. The abnormalities noted on the patient's labs from yesterday were rechecked on a couple of occasion and seem to be accurate. This morning labs showed WBC 5.2, hemoglobin 8.2, sodium 139, potassium 3.8, chloride 114, BUN 10, creatinine 0.44, calcium 8.2, phosphorus 2.6, magnesium 2.0. Patient received supplementation with sodium phosphate, potassium chloride and magnesium sulfate. He remains on Levophed 0.07 mcg/kg/min (7 mcg/min), propofol 75 mcg/kg/min, normal saline at 30 cc/h and TPN at 30 cc/h (which is goal). Additionally, patient remains on cefepime and vancomycin; sputum culture is final for Pseudomonas aeruginosa that any resistance. Blood cultures continue to be pending at this time. Chest x-ray from this morning continue show right lower lobe infiltrate. 02/29/24 - Patient seen at bedside today, in the ICU. He is on day 5 of his hospital stay, admitted on 02/25/24 and then the ICU since 02/26/24. He remains intubated mechanically ventilated since 02/26/24. He remains on assist-control with a rate of 26, volume 500, FiO2 50%, PEEP of 8. ABG completed today showed pO2 96, pCO2 30, pH 7.51 indicating a respiratory and metabolic alkalosis. On labs drawn today patient's WBC is 4.1, hemoglobin 8.0, sodium 138, chloride 114, potassium 3.9, BUN 13, creatinine 0.46, phosphorus 2.2, magnesium 1.9. Patient received 1 g magnesium sulfate this morning and 15 mmol sodium phosphate. He remains on propofol 75 mcg/mg/min, Levophed at 0.03 mcg/kg/min (~3 mcg/min) and TPN at 30 cc/h (which is goal). He remains on 0.9% normal saline at 20 cc/h, and cefepime 2 g every 8 hours. Blood cultures remain pending at this time. Chest x-ray shows more prominent small bilateral pleural effusions and associated bibasilar opacities. The patient is seen today March 01, 2024 in follow-up on the regular medical floor. He remains intubated on the mechanical ventilator and assist-control mode with a rate of 26, tidal volume 500, FiO2 50% and a PEEP of 8. Morning blood gases revealed a PaO2 111, pCO2 22 and a pH of 7.48. He is currently on propofol at 55 mcg/kg/min. Receiving TPN at 30 mL/h. Normal saline at KVO. He remains on cefepime for pseudomonal bronchial infection. White count 5.2. Hemoglobin 8.4. Platelets 184. Sodium 136. Potassium 3.5. Bicarb 20. BUN 13. Creatinine 0.53. Glucose 87. He is afebrile. Hemodynamically stable. Chest x-ray reveals persistent small bilateral effusions. He is continued on DuoNebs. Lovenox for DVT prophylaxis. On today's evaluation of 03/02/2024, the patient is being seen in follow-up in the intensive care unit. The patient remains intubated on the mechanical ventilator. The patient is sedated and currently propofol is running at 60 mcg/kg/min. He is calm and comfortable and synchronous with mechanical ventilator. No significant agitation. He is on assist-control mode of mechanical ventilation at rate of 26, tidal volume of 500, FiO2 of 60% with a PEEP of 8. Chest x-ray showing a component of pulm vessel congestion, atelectatic changes in lung bases and small bilateral pleural effusions. ET tube is around 5 cm above the avery. The blood gas showed a pH of 7.41 with a pCO2 of 34 and pO2 of 92 and there has been some improvement in his oxygenation over the past 24 hours. He remains NPO. He remains on TPN for nutritional support which is running at rate of 30 cc an hour. He has an ileostomy and output from the ileostomy is quite high and he has produced around 600 cc of output from his ileostomy over the past 8 hours. No signs of any active bleeding. Hemodynamically, the patient is on IV fluids at KVO. He is also on pressors and norepinephrine is running at a low dose of 0.02 mcg/kg/min. He is covered with broad-spectrum antibiotics and he is currently on IV cefepime. He did grow Pseudomonas in his sputum analysis and underlying pseudomonal infection/pneumonia cannot be completely excluded. In terms of his blood work from today, the patient has a white cell count of 6.3, hemoglobin 9.1. And a platelet count of 197. The rest of the electrolytes are all stable with a serum bicarb of 19, sodium of 138, potassium level 3.6, chloride 111, BUN is 14 with a creatinine of 0.5. He has ionized calcium level was at 4.9. His LFTs are essentially within normal limits. Total protein is at 6.7 with an albumin level of 2.8. Note that the patient was given a trial of extubation yesterday. Within 2 hours postextubation, the patient had to be reintubated because of increased work of breathing and hypoxic respiratory failure. As such, the patient has been kept intubated for now. The patient is arousable even while being on sedation and can follow some simple commands. On 03/03/2024, the patient is being seen for a follow-up. As mentioned earlier, the patient failed extubation on 03/01/2024 and the bronchoscopy was done on 03/02/2024 and it showed copious amount of mucous plugs and therapeutic airway suctioning was done. Repeat bronchoscopy was done today and similar abundant respiratory secretions and mucous plugs were identified although they were somewhat less compared to yesterday the total amount of aspirate was in the order of 15 to 20 cc of purulent material. As such, I am not seeing a immediate successful way of extubating this patient especially the patient has poor ability to perform pulmonary toileting and has a weak cough and has an underlying tracheal stenosis with ongoing pneumonia. Based on that, I made recommendations for insertion of a tracheostomy tube. Meanwhile, this morning, the patient remains on the mechanical ventilator. He is on assist-control mode at a rate of 26 with a tidal volume of 500 and FiO2 of 50% with a PEEP of 6. The blood gases were not obtained today. Chest x-ray findings are stable and the patient has some slight improvement in the bibasilar pulmonary opacities seen earlier. Blood work from today shows a WBC count of 6 with a hemoglobin 9.6 and a platelet count of 216. BUN is 10 with a creatinine of 0.4 and a sodium levels at 138. The patient remains on TPN for nutritional support and the patient is on TPN at rate of 30 cc an hour. He remains on low-dose norepinephrine at 0.05 mcg/kg/min and the patient remains on propofol running at 60 mcg/kg/min and the patient is arousable even while being on sedation. No other significant events overnight. On 03/04/2024, the patient is being seen for a follow-up. Awake and arousable despite being on propofol at 60 mcg/kg/min. Remains on mechanical ventilator, assist-control mode rate of 16, tidal volume of 500, FiO2 of 50% with a PEEP of 6. Unable to obtain blood gas. Will monitor saturation and end-tidal CO2. Remains on norepinephrine at 0.04 mcg/kg/min. The ostomy output is in the order of 600 to 700 cc every 8 hours. Remains on TPN for nutritional support at a rate of 30 cc. The BUN is 9 with a creatinine of 0.44. Serum bicarb is at 19 and a sodium levels at 137. The white cell count of 5 with a hemoglobin of 9.0. The bronchioloalveolar lavage that was collected earlier showing again gram- negative bacillus, awaiting final cultures and the patient remains on IV cefepime. General surgery is on the case and the patient is going to undergo a tracheostomy tube insertion tomorrow for ongoing respiratory support as the patient may not be able to wean successfully for the reasons mentioned earlier. Objective - Vital Signs Vital signs: Vital Signs Temp 99.2 F 03/04/24 08:00 Pulse 71 03/04/24 10:00 Resp 16 03/04/24 10:00 BP 107/52 03/04/24 10:00 Pulse Ox 98 03/04/24 10:00 FiO2 50 03/04/24 08:00 Intake & Output 03/03/24 03/04/24 03/04/24 18:59 06:59 18:59 Intake Total 1133.547 801.037 307.729 Output Total 1565 1300 175 Balance -431.453 -498.963 132.729 Intake: IV 460 390 210 Cefepime 2 gm In Sodium 100 50 Chloride 0.9% 100 ml @ 25 mls/hr IVPB Q8H ANNIE Rx#: [id number] KVO 360 390 Mvi, Adult No.4 with Vit 60 K 10 ml Trace (Conc-1Ml/ Dose) 1 ml Sodium Acetate 40 meq Potassium Acetate 40 meq Calcium Gluconate 1 gm Magnesium Sulfate gm 1.5 gm Potassium Phosphate 24 mmol In Amino Acids 5 %/Dextrose 20 % 1,000 ml @ 30 mls/hr IV .Q24H ANNIE Rx#: [id number] Potassium Chloride 10 meq 100 In Water For Injection 1 100ml.bag @ 100 mls/hr IVPB Q1H ANNIE Rx#: [id number] Intake, IV Titration 313.547 381.037 97.729 Amount Norepinephrine 32 mg In 22.105 9.011 Sodium Chloride 0.9% 218 ml @ 0.08 MCG/KG/MIN 3. 653 mls/hr IV .Q24H ANNIE Rx#:[id number] propofoL 1,000 mg In 291.442 372.026 97.729 Empty Bag 1 bag @ 15 MCG/ KG/MIN 8.573 mls/hr IV . [id number] ANNIE Rx#:[id number] TPN/PPN 360 30 Mvi, Adult No.4 with Vit 360 30 K 10 ml Trace (Conc-1Ml/ Dose) 1 ml Sodium Acetate 40 meq Potassium Acetate 40 meq Calcium Gluconate 1 gm Magnesium Sulfate gm 1.5 gm Potassium Phosphate 24 mmol In Amino Acids 5 %/Dextrose 20 % 1,000 ml @ 30 mls/hr IV .Q24H ANNIE Rx#: [id number] Output: Drainage 650 Mid Abdomen 650 Urine 915 800 175 Stool 500 Other: Voiding Method Indwelling Catheter Indwelling Catheter Indwelling Catheter ABP, PAP, CO, CI - Last Documented Arterial Blood Pressure 91/88 - Exam GENERAL: A 48-year-old male patient, currently intubated mechanically ventilated and sedated. Arousable and follows some simple commands. Orotracheal and oroga stric tube are both in place Head exam was generally normal. There was no scleral icterus or corneal arcus. Mucous membranes were moist. HEENT: No scleral icterus. No conjunctival pallor. Normocephalic, atraumatic. CARDIOVASCULAR: S1 and S2 present. No murmurs, rubs, or gallops. PULMONARY: Diminished breath sounds were bilaterally. No wheezes rhonchi or crackles ABDOMEN: Soft, nontender, nondistended, normoactive bowel sounds. No palpable organomegaly. Functioning ileostomy. 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 EXTREMITIES: No cyanosis, clubbing, or pedal edema. NEUROLOGICAL: Unable to fully assess the patient has intubated mechanically ventilated and sedated. SKIN: No rashes. Left chest PICC line. - Labs CBC & Chem 7: 03/04/24 05:43 03/04/24 05:43 Labs: Abnormal Lab Results - Last 24 Hours (Table) 03/03/24 03/03/24 03/04/24 Range/Units 05:50 18:09 05:43 RBC 3.45 L (4.30-5.90) m/uL Hgb 9.0 L (13.0-17.5) gm/dL Hct 30.8 L (39.0-53.0) % MCHC 29.2 L (31.0-37.0) g/dL RDW 17.4 H (11.5-15.5) % Chloride (98-107) mmol/L Carbon Dioxide (22-30) mmol/L Creatinine (0.66-1.25) mg/dL Glucose (74-99) mg/dL POC Glucose (mg/dL) 116 H (70-110) mg/dL Triglycerides 290.00 H (0.00-149.00) mg/dL 03/04/24 Range/Units 05:43 RBC (4.30-5.90) m/uL Hgb (13.0-17.5) gm/dL Hct (39.0-53.0) % MCHC (31.0-37.0) g/dL RDW (11.5-15.5) % Chloride 114 H (98-107) mmol/L Carbon Dioxide 19 L (22-30) mmol/L Creatinine 0.44 L (0.66-1.25) mg/dL Glucose 100 H (74-99) mg/dL POC Glucose (mg/dL) (70-110) mg/dL Triglycerides (0.00-149.00) mg/dL Microbiology - Last 24 Hours (Table) 03/02/24 17:43 Gram Stain - Preliminary Bronchoalviolar Lavage - Left Assessment and Plan Plan: Acute hypoxic and hypercapnic respiratory failure, requiring mechanical intubation on 02/26/24. The patient is known to have chronic respiratory insufficiency as the patient has poor ability to perform pulmonary toileting, weak cough, and has had recurrent pneumonias with gram-negative and MRSA. Most recent sputum sample from 02/26/2024 is positive for Pseudomonas aeruginosa and the patient is currently on IV cefepime. Patient failed BiPAP therapy during this current admission the patient had to be intubated and placed on the [employer] ventilator on 02/26/2024. The patient was given a trial of extubation on 03/01/2024 and within 2 hours of extubation he had to be reintubated for increased work of breathing and hypoxic respiratory failure. Bronchoscopy was done on 03/02/2024 and 03/03/2024 revealed copious amount of purulent respiratory secretions and mucous plugs which probably contributing to his ongoing respiratory failure. The patient has poor ability to cough and perform pulmonary toileting and clear his respiratory secretions. 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 The bronchoalveolar lavage is showing gram- negative bacillus, awaiting final cultures and sensitivities. Chest x-ray findings are essentially stable. Tracheal stenosis at the site of the previously inserted tracheostomy tube, visualized on most recent bronchoscopy Previous history of recurrent ventilator dependent respiratory failure, secondary to pneumonia and mucous plugging. The patient has undergone previous bronchoscopies and cultures from bronchoscopy on 12/31/2023 was positive for MRSA and subsequent bronchoscopy on 01/03/2024 was positive for Klebsiella pneumoniae and Bella glabrata. Most recent sputum analysis from 02/26/2024 was positive for Pseudomonas aeruginosa and the patient is currently on IV ce fepime. Repeat bronchioloalveolar lavage from 03/02/2024 is pending. It is showing gram-negative bacillus. Sepsis secondary to above, recurrent pneumonia, currently low-dose norepinephrine Leukocytosis, resolved Crohn's disease, with previous complication of bowel perforation s/p colectomy and diverting ileostomy. The patient also has had previous history of abdominal wall bleeding there is currently inactive and stable. The patient has a high output ileostomy TPN for nutritional support Electrolyte imbalance at time of admission including hyponatremia, hypokalemia, hypophosphatemia, hypomagnesemia and hyperphosphatemia, all resolved Tracheobronchomalacia History of DVT, on therapeutic dose of Lovenox CVA/TIA, with residual left-sided weakness Right BKA History of asystole/cardiac arrest in 2021 Plan: The patient will likely failed extubation. Serial bronchoscopies on 03/02/2024 and 03/03/2024 showed copious and abundant respiratory secretions and mucous plugs which will hinder this patient's ability to extubate successfully. Noted the patient has a very weak cough, poor ability to clear respiratory secretions and the patient also has a tracheal stenosis. Based on that, I made recommendations to proceed with a tracheostomy tube insertion to facilitate his weaning process and perform adequate pulmonary toileting and get this patient off sedation. Discussed the case with general surgery and the patient is scheduled to undergo tracheostomy tube insertion on 03/05/2024 Repeat bronchioloalveolar lavage was done on 03/02/2024 and the culture still pending, preliminary cultures are showing gram-negative bacillus Continue IV cefepime Continue vent support TPN for nutritional support Continue bronchodilators Lovenox for DVT prophylaxis Will continue to follow make further recommendations based on his progress. Critical care evaluation that was done more than 30 minutes. Time with Patient: Greater than 30
[2024-03-05 00:14] LABS: Glucose,Whole Blood 91 mg/dL (70-110)
[2024-03-05 05:46] LABS: Glucose,Whole Blood 97 mg/dL (70-110)
--- NOTE | 2024-03-05 07:14 | XR ---
EXAMINATION TYPE: XR chest 1V portable DATE OF EXAM: 03/05/2024 6:38 AM COMPARISON: 03/04/2024 CLINICAL INDICATION: Male, 48 years old with history of Intubated, FINDINGS: Indwelling tubes and catheters are unchanged. No change in bibasilar opacities. Stable appearance of the cardio-mediastinal structures at this time. Pleural effusion unchanged. IMPRESSION: 1. Stable portable chest. Clinical correlation and follow up until resolution is recommended. [facility], , 03/05/2024 7:12 AM
[2024-03-05 07:20] LABS: Anisocytosis Slight; HCT 31.7 % (39.0-53.0); HGB 9.3 gm/dL (13.0-17.5); Hypochromasia Marked; MCH 25.9 pg (25.0-35.0); MCHC 29.2 g/dL (31.0-37.0); MCV 88.7 fL (80.0-100.0); Mean Platelet Volume 9.2; Platelet Count 227 k/uL (150-450); RBC 3.57 m/uL (4.30-5.90); RDW 17.3 % (11.5-15.5); WBC 4.2 k/uL (3.8-10.6)
--- NOTE | 2024-03-05 07:58 | PN ---
PROGRESS NOTE DATE OF SERVICE: 03/04/2024 SUBJECTIVE: This is a 48-year-old gentleman who was admitted with recurrent mucus plugging and concerns for possible right lower lobe pneumonia, is on mechanical ventilation. The patient is being closely monitored at this time. The patient also had multiple other medical problems including DVT, CVA, and Crohn disease with complications also. The patient was actually reintubated. PAST MEDICAL HISTORY: Reviewed. REVIEW OF SYSTEMS: Could not be taken. CURRENT MEDICATIONS: Reviewed. PHYSICAL EXAMINATION: VITAL SIGNS: Pulse is 80, blood pressure 122/53, respirations 16. HEENT: Conjunctivae normal. NECK: No JVD. CARDIOVASCULAR: S1, S2. RESPIRATIONS: Breath sounds diminished at the bases. A few scattered rhonchi. ABDOMEN: Soft. NERVOUS SYSTEM: Nonfocal. LABORATORY DATA: Hemoglobin 9. Chest x-ray reviewed. ASSESSMENT: 1. Possible Pseudomonas pneumonia. 2. Recurrent mucus plugging with acute hypoxic respiratory failure and right lower lobe pneumonia, on mechanical ventilation. 3. History of deep venous thrombosis and right below-knee amputation. 4. History of Crohn disease with previous bowel perforation. 5. History of protein-calorie malnutrition. 6. History of previous cardiac arrest in 2021. 7. Multiple complex medical issues. 8. History of methicillin-resistant Staphylococcus aureus. RECOMMENDATIONS AND DISCUSSION: This is a 48-year-old gentleman presented with multiple complex medical issues. At this time, we will monitor the patient closely. I would recommend continue with current medications. Continue with antibiotics. The patient is on cefepime at this time. The sputum culture showed Pseudomonas. The patient underwent a bronchoscopy and lavage also. We will repeat labs tomorrow. Continue to monitor as mentioned earlier. Further recommendations to follow. Prognosis guarded. MMODL / IJN: [id number] /
--- NOTE | 2024-03-05 08:11 | P.PN ---
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 On today's evaluation that is 03/04/2024,the patient continues to be afebrile, the patient remains to be intubated on the vent patient is requiring less pressor support compared to yesterday to maintain his blood pressure FiO2 is currently stable at 50% and no significant purulent secretion through the ED. Patient white count is 5.0 creatinine 0.44 BAL culture growing gram-negative bacilli Objective - Vital Signs Vital signs: Vital Signs Temp 98.4 F 03/04/24 12:00 Pulse 80 03/04/24 12:45 Resp 16 03/04/24 12:45 BP 122/53 03/04/24 12:45 Pulse Ox 99 03/04/24 12:45 FiO2 50 03/04/24 12:00 Intake & Output 03/03/24 03/04/24 03/04/24 18:59 06:59 18:59 Intake Total 1133.547 801.037 613.152 Output Total 1565 1300 400 Balance -431.453 -498.963 213.152 Intake: IV 460 390 400 Cefepime 2 gm In Sodium 100 50 Chloride 0.9% 100 ml @ 25 mls/hr IVPB Q8H ANNIE Rx#: [id number] KVO 360 390 Mvi, Adult No.4 with Vit 150 K 10 ml Trace (Conc-1Ml/ Dose) 1 ml Sodium Acetate 40 meq Potassium Acetate 40 meq Calcium Gluconate 1 gm Magnesium Sulfate gm 1.5 gm Potassium Phosphate 24 mmol In Amino Acids 5 %/Dextrose 20 % 1,000 ml @ 30 mls/hr IV .Q24H ANNIE Rx#: [id number] Potassium Chloride 10 meq 200 In Water For Injection 1 100ml.bag @ 100 mls/hr IVPB Q1H ANNIE Rx#: [id number] Intake, IV Titration 313.547 381.037 213.152 Amount Norepinephrine 32 mg In 22.105 9.011 15.423 Sodium Chloride 0.9% 218 ml @ 0.08 MCG/KG/MIN 3. 653 mls/hr IV .Q24H ANNIE Rx#:[id number] propofoL 1,000 mg In 291.442 372.026 197.729 Empty Bag 1 bag @ 15 MCG/ KG/MIN 8.573 mls/hr IV . [id number] ANNIE Rx#:[id number] TPN/PPN 360 30 Mvi, Adult No.4 with Vit 360 30 K 10 ml Trace (Conc-1Ml/ Dose) 1 ml Sodium Acetate 40 meq Potassium Acetate 40 meq Calcium Gluconate 1 gm Magnesium Sulfate gm 1.5 gm Potassium Phosphate 24 mmol In Amino Acids 5 %/Dextrose 20 % 1,000 ml @ 30 mls/hr IV .Q24H ANNIE Rx#: [id number] Output: Drainage 650 Mid Abdomen 650 Urine 915 800 400 Stool 500 Other: Voiding Method Indwelling Catheter Indwelling Catheter Indwelling Catheter ABP, PAP, CO, CI - Last Documented Arterial Blood Pressure 91/88 - Exam GENERAL DESCRIPTION: Middle-age man intubated on the vent RESPIRATORY SYSTEM: Unlabored breathing , coarse breath sounds bilaterally HEART: S1 S2 regular rate and rhythm , ABDOMEN: Soft , no tenderness EXTREMITIES: No edema feet - Labs CBC & Chem 7: 03/05/24 06:30 03/04/24 05:43 Labs: Abnormal Lab Results - Last 24 Hours (Table) 03/03/24 03/03/24 03/04/24 Range/Units 05:50 18:09 05:43 RBC 3.45 L (4.30-5.90) m/uL Hgb 9.0 L (13.0-17.5) gm/dL Hct 30.8 L (39.0-53.0) % MCHC 29.2 L (31.0-37.0) g/dL RDW 17.4 H (11.5-15.5) % Chloride (98-107) mmol/L Carbon Dioxide (22-30) mmol/L Creatinine (0.66-1.25) mg/dL Glucose (74-99) mg/dL POC Glucose (mg/dL) 116 H (70-110) mg/dL Triglycerides 290.00 H (0.00-149.00) mg/dL 03/04/24 Range/Units 05:43 RBC (4.30-5.90) m/uL Hgb (13.0-17.5) gm/dL Hct (39.0-53.0) % MCHC (31.0-37.0) g/dL RDW (11.5-15.5) % Chloride 114 H (98-107) mmol/L Carbon Dioxide 19 L (22-30) mmol/L Creatinine 0.44 L (0.66-1.25) mg/dL Glucose 100 H (74-99) mg/dL POC Glucose (mg/dL) (70-110) mg/dL Triglycerides (0.00-149.00) mg/dL Microbiology - Last 24 Hours (Table) 03/02/24 17:43 Gram Stain - Preliminary Bronchoalviolar Lavage - Left Bronchial Washings Culture - Preliminary Gram Neg Bacilli Assessment and Plan (1) Pneumonia Current Visit: No Status: Acute Code(s): J18.9 - PNEUMONIA, UNSPECIFIED ORGANISM SNOMED Code(s): 153896867 (2) Sepsis Current Visit: No Status: Acute Code(s): A41.9 - SEPSIS, UNSPECIFIED ORGANISM SNOMED Code(s): 61405074 Plan: 1patient presented to hospital with sepsis in this patient who did have a low- grade fever elevated white count tachycardia meeting criteria for SIRS source likely pneumonia at this patient presenting with increasing shortness of breath cough with evidence of right-sided infiltrate, patient has been admitted to the hospital and will need to cover for resistant gram-positive as well as gram- negative 2-sputum currently growing Pseudomonas blood culture so far negative 3patient is status post bronchoscopy and lavage completed on 03/02/2024 cultures currently growing gram-negative with ID sensitivities pending patient will be treated with cefepime while waiting for repeat culture to finalize Dictation was produced using [employer] dictation software. please excuse any grammatical, word or spelling errors. Time with Patient: Less than 30
[2024-03-05 08:44] LABS: African American GFR (CKD) >90 (>60 ml/min/1.73 sqM); Anion Gap 6 mmol/L; Blood Urea Nitrogen 10 mg/dL (9-20); Calcium 8.6 mg/dL (8.4-10.2); Carbon Dioxide 21 mmol/L (22-30); Chloride 110 mmol/L (98-107); Glucose 92 mg/dL (74-99); Magnesium 1.9 mg/dL (1.6-2.3); Non-African American GFR(CKD) >90 (>60 ml/min/1.73 sqM); Phosphorus 3.3 mg/dL (2.5-4.5); Potassium 3.9 mmol/L (3.5-5.1); Sodium 137 mmol/L (137-145)
[2024-03-05 12:00] LABS: Glucose,Whole Blood 149 mg/dL (70-110)
--- NOTE | 2024-03-05 13:09 | P.PN ---
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 On today's evaluation that is 03/05/2024,the patient remains to be afebrile, patient is on ventilator FiO2 currently at 50% no significant purulent secretion through the ET still requiring low-dose pressor support no other changes reported. Patient white count is 4.2, creatinine 0.41 BAL culture growing Pseudomonas that is now resistant to cefepime Objective - Vital Signs Vital signs: Vital Signs Temp 99.0 F 03/05/24 12:00 Pulse 67 03/05/24 13:00 Resp 17 03/05/24 13:00 BP 97/43 03/05/24 13:00 Pulse Ox 99 03/05/24 12:30 FiO2 50 03/05/24 12:00 Intake & Output 03/04/24 03/05/24 03/05/24 18:59 06:59 18:59 Intake Total 6954.492 4821.099 1367.819 Output Total 725 1859 675 Balance 571.819 -741.901 692.819 Weight 93.9 kg Intake: IV 880 750 140 Cefepime 2 gm In Sodium 50 200 Chloride 0.9% 100 ml @ 25 mls/hr IVPB Q8H ANNIE Rx#: [id number] KVO 300 250 140 Mvi, Adult No.4 with Vit 330 300 K 10 ml Trace (Conc-1Ml/ Dose) 1 ml Sodium Acetate 40 meq Potassium Acetate 40 meq Calcium Gluconate 1 gm Magnesium Sulfate gm 1.5 gm Potassium Phosphate 24 mmol In Amino Acids 5 %/Dextrose 20 % 1,000 ml @ 30 mls/hr IV .Q24H ANNIE Rx#: [id number] Potassium Chloride 10 meq 200 In Water For Injection 1 100ml.bag @ 100 mls/hr IVPB Q1H ANNIE Rx#: [id number] Intake, IV Titration 416.819 379.868 2857.819 Amount Mvi, Adult No.4 with Vit 1013.5 K 10 ml Trace (Conc-1Ml/ Dose) 1 ml Sodium Acetate 40 meq Potassium Acetate 50 meq Calcium Gluconate 1 gm Magnesium Sulfate gm 1.5 gm Potassium Phosphate 24 mmol In Amino Acids 5 %/Dextrose 20 % 1,000 ml @ 30 mls/hr IV .Q24H ANNIE Rx#: [id number] Norepinephrine 32 mg In 19.090 9.932 Sodium Chloride 0.9% 218 ml @ 0.08 MCG/KG/MIN 3. 653 mls/hr IV .Q24H ANNIE Rx#:[id number] propofoL 1,000 mg In 397.729 357.167 214.319 Empty Bag 1 bag @ 15 MCG/ KG/MIN 8.573 mls/hr IV . [id number] ANNIE Rx#:[id number] Output: Gastric Drainage 400 Urine 725 809 675 Stool 650 Other: Voiding Method Indwelling Catheter Indwelling Catheter Indwelling Catheter ABP, PAP, CO, CI - Last Documented Arterial Blood Pressure 91/88 - Exam GENERAL DESCRIPTION: Middle-age man intubated on the vent RESPIRATORY SYSTEM: Unlabored breathing , coarse breath sounds bilaterally HEART: S1 S2 regular rate and rhythm , ABDOMEN: Soft , no tenderness EXTREMITIES: No edema feet - Labs CBC & Chem 7: 03/05/24 06:30 03/05/24 06:30 Labs: Abnormal Lab Results - Last 24 Hours (Table) 03/05/24 03/05/24 03/05/24 Range/Units 06:30 06:30 11:57 RBC 3.57 L (4.30-5.90) m/uL Hgb 9.3 L (13.0-17.5) gm/dL Hct 31.7 L (39.0-53.0) % MCHC 29.2 L (31.0-37.0) g/dL RDW 17.3 H (11.5-15.5) % Chloride 110 H (98-107) mmol/L Carbon Dioxide 21 L (22-30) mmol/L Creatinine 0.41 L (0.66-1.25) mg/dL POC Glucose (mg/dL) 149 H (70-110) mg/dL Microbiology - Last 24 Hours (Table) 03/02/24 17:43 Gram Stain - Final Bronchoalviolar Lavage - Left Bronchial Washings Culture - Final Pseudomonas aeruginosa Assessment and Plan (1) Pneumonia Current Visit: No Status: Acute Code(s): J18.9 - PNEUMONIA, UNSPECIFIED ORGANISM SNOMED Code(s): 520145783 (2) Sepsis Current Visit: No Status: Acute Code(s): A41.9 - SEPSIS, UNSPECIFIED ORGANISM SNOMED Code(s): 62897028 Plan: 1patient presented to hospital with sepsis in this patient who did have a low- grade fever elevated white count tachycardia meeting criteria for SIRS source likely pneumonia at this patient presenting with increasing shortness of breath cough with evidence of right-sided infiltrate, patient has been admitted to the hospital and will need to cover for resistant gram-positive as well as gram- negative 2-sputum currently growing Pseudomonas blood culture so far negative 3patient is status post bronchoscopy and lavage completed on 03/02/2024 cu ltures currently growing Pseudomonas that is resistant to cefepime, will discontinue cefepime start the patient on Zosyn and monitor clinical course closely Dictation was produced using [employer] dictation software. please excuse any grammatical, word or spelling errors. Time with Patient: Less than 30
[2024-03-05] MEDS: PIPERACILLIN-TAZOBACTAM 3.375 GM in SODIUM CHLORIDE 0.9% 100 ML IVPB SCH (13:30)
[2024-03-05] MEDS ORDERED: KETAMINE HCL IN 0.9 % NACL 50 MG/5 ML SYRINGE ONE (17:21)
[2024-03-05] MEDS ORDERED: ROCURONIUM 10 MG/ML (5 ML VIAL) IV ONE (17:21)
[2024-03-05] MEDS ORDERED: fentaNYL (PF) 50 MCG/ML 2 ML AMP ONE (17:21)
[2024-03-05] MEDS ORDERED: PROPOFOL 10 MG/ML 20 ML VIAL IV ONE (17:21)
[2024-03-05] MEDS ORDERED: GLYCOPYRROLATE 0.2 MG/ML 2 ML VIAL ONE (17:21)
--- NOTE | 2024-03-05 17:24 | P.PN ---
Subjective Progress Note Date: 03/05/24 Patient is a 48-year-old male with complex past medical history including CVA, previous DVTs, right BKA, cardiac arrest in 2021, Crohn's disease, enterocutaneous fistulas, previous bowel resection, ventilator dependent respiratory failure, previous tracheostomy and reversal. Recently was admitted 12/13/2023 through 12/25/2023 for pneumonia and respiratory failure due to mucous plugging. He was intubated and placed on mechanical ventilator for approximately 6 days. He did have a bronchoscopy with BAL, microbiology positive for haemophilus influenza. Eventually, discharged home, and returned 01/02/24 for GIB from his ostomy. Was reintubated and did spend some time on the ventilator for reccurent pneumonia and mucous plugging. During this time, had multiple bronchoscopies with BAL, once on 12/31/2023 and again on 01/03/2024, isolated organisms including MRSA and Pseudomonas. Patient was eventually discharged back home on 01/16/2024. More recently, patient had an ER visit for increased work of breathing on February 22, and the patient was sent home. Returned for similar symptoms yesterday afternoon. Chest x-ray done on admission showing cardiomegaly with pulmonary vascular congestion and questionable right lower lobe infiltrate or effusion. CBC: WBC count 11.2, hemoglobin 10.5, hematocrit 37.3, platelets 315. CMP: Sodium 138, potassium 4.8, chloride 97, serum bicarb 39, BUN 23, creatinine 0.45, glucose 103. Lactic 1. LFTs unremarkable. Troponin less than 0.012. I am evaluating this patient emergency department, he is currently unresponsive, to even painful stimuli. He is on a 15 L nonrebreather. SpO2 88%. Diminished breath sounds on the right Will place this patient on BiPAP with initial settings 16/5 FiO2 to be titrated accordingly. Will get a stat ABG. We will repeat chest x-ray. I did talk to the patient's son, Alan, he is adamant that the patient remain a full code, would want the patient intubated if necessary. On reassessment in the emergency department, patient remained on BiPAP with settings 16/5 100%. He remains unresponsive to painful stimuli. Now only achieving tidal volumes ranging from 100 to 200 cc. Unfortunately, we were not able to to get an initial blood gas. I recommended that the patient be moved to the trauma bay and intubated by the [employer]. Follow-up chest x-ray showing the endotracheal tube in appropriate position above the avery. Orogastric tube coursing below the diaphragm. Initial ventilator settings include assist-co ntrol, respiratory rate 20, tidal volume 500, FiO2 100%, PEEP of 5. Currently, patient is fairly asynchronous with the ventilator and he is biting the tube. There are copious amounts of blood-tinged sputum in the ET tube. Elevated peak airway pressures of 45. Static pressure 32. The nurses are working on appropriately sedating the patient with propofol. Postintubation, the patient did become hypotensive, currently receiving his second liter of normal saline. Will also start the patient on norepinephrine to maintain a MAP of greater than 65 mmHg. I did insert a left femoral arterial line. Following this, we did obtain an ABG showing profound hypercapnic and hypoxic respiratory failure. PaO2 of 89, pCO2 98, pH of 7.11. Appropriate ventilator adjustments were made including increasing the rate to 26 and PEEP can be increased to 8. Patient may eventually need repeat bronchoscopy with BAL. Case will be discussed with Dr. Munoz. Patient is still waiting for a bed in the intensive care unit. I did call and update patient's son Alan about his change in clinical condition. 02/27/24 - Patient seen at bedside today, in the ICU. He is on day 3 of his hospital stay, admitted on 02/25/24 and in the ICU since 02/26/24. He remains mechanically ventilated intubated since 02/26/24. He remains on assist-control with a rate of 26, volume 500, FiO2 50% (down from 60%) and a PEEP of 8. ABG done today (on 60% FiO2) showed pO2 126, pCO2 35, pH is 7.50, indicating a mixed respiratory and metabolic alkalosis. Abnormality shown on the patient's lab this morning, inconsistent and drastic changes from previous labs. Will perform a redraw today to get a better idea on how the labs are changed. He remains on vasopressin 0.03 units/min, Levophed at 0.07 mcg/kg/min (6.8 mcg/min), propofol 75 mcg/kg/min, receiving TPN at 30 cc/h (which is goal). Patient's blood pressure today 131/53. Additionally, patient receiving cefepime and vancomycin secondary to leukocytosis and a Tmax on 02/26/24 of 100.5 F. Sputum culture currently pending. Chest x-ray from this morning showed improving right perihilar and lower lobe infiltrate. Additionally, patient is currently receiving TPN ([employer]) at 30 cc/h which is goal for dietitian. 02/28/24 - Patient seen at bedside today, in the ICU. He is on day 4 of his hospital stay, admitted on 02/25/24 and in the ICU since 02/26/24. He remains intubated and mechanically ventilated since 02/26/24. He remains on assist- control with a rate of 25, [place] 500, FiO2 40% and PEEP of 8. ABG done today (while on 100% FiO2) showed pO2 255, pCO2 37, pH 7.44 indicating slight respiratory alkalosis. The abnormalities noted on the patient's labs from yesterday were rechecked on a couple of occasion and seem to be accurate. This morning labs showed WBC 5.2, hemoglobin 8.2, sodium 139, potassium 3.8, chloride 114, BUN 10, creatinine 0.44, calcium 8.2, phosphorus 2.6, magnesium 2.0. Patient received supplementation with sodium phosphate, potassium chloride and magnesium sulfate. He remains on Levophed 0.07 mcg/kg/min (7 mcg/min), propofol 75 mcg/kg/min, normal saline at 30 cc/h and TPN at 30 cc/h (which is goal). Additionally, patient remains on cefepime and vancomycin; sputum culture is final for Pseudomonas aeruginosa that any resistance. Blood cultures continue to be pending at this time. Chest x-ray from this morning continue show right lower lobe infiltrate. 02/29/24 - Patient seen at bedside today, in the ICU. He is on day 5 of his hospital stay, admitted on 02/25/24 and then the ICU since 02/26/24. He remains intubated mechanically ventilated since 02/26/24. He remains on assist-control with a rate of 26, volume 500, FiO2 50%, PEEP of 8. ABG completed today showed pO2 96, pCO2 30, pH 7.51 indicating a respiratory and metabolic alkalosis. On labs drawn today patient's WBC is 4.1, hemoglobin 8.0, sodium 138, chloride 114, potassium 3.9, BUN 13, creatinine 0.46, phosphorus 2.2, magnesium 1.9. Patient received 1 g magnesium sulfate this morning and 15 mmol sodium phosphate. He remains on propofol 75 mcg/mg/min, Levophed at 0.03 mcg/kg/min (~3 mcg/min) and TPN at 30 cc/h (which is goal). He remains on 0.9% normal saline at 20 cc/h, and cefepime 2 g every 8 hours. Blood cultures remain pending at this time. Chest x-ray shows more prominent small bilateral pleural effusions and associated bibasilar opacities. The patient is seen today March 01, 2024 in follow-up on the regular medical floor. He remains intubated on the mechanical ventilator and assist-control mode with a rate of 26, tidal volume 500, FiO2 50% and a PEEP of 8. Morning blood gases revealed a PaO2 111, pCO2 22 and a pH of 7.48. He is currently on propofol at 55 mcg/kg/min. Receiving TPN at 30 mL/h. Normal saline at KVO. He remains on cefepime for pseudomonal bronchial infection. White count 5.2. Hemoglobin 8.4. Platelets 184. Sodium 136. Potassium 3.5. Bicarb 20. BUN 13. Creatinine 0.53. Glucose 87. He is afebrile. Hemodynamically stable. Chest x-ray reveals persistent small bilateral effusions. He is continued on DuoNebs. Lovenox for DVT prophylaxis. On today's evaluation of 03/02/2024, the patient is being seen in follow-up in the intensive care unit. The patient remains intubated on the mechanical ventilator. The patient is sedated and currently propofol is running at 60 mcg/kg/min. He is calm and comfortable and synchronous with mechanical ventilator. No significant agitation. He is on assist-control mode of mechanical ventilation at rate of 26, tidal volume of 500, FiO2 of 60% with a PEEP of 8. Chest x-ray showing a component of pulm vessel congestion, atelectatic changes in lung bases and small bilateral pleural effusions. ET tube is around 5 cm above the avery. The blood gas showed a pH of 7.41 with a pCO2 of 34 and pO2 of 92 and there has been some improvement in his oxygenation over the past 24 hours. He remains NPO. He remains on TPN for nutritional support which is running at rate of 30 cc an hour. He has an ileostomy and output from the ileostomy is quite high and he has produced around 600 cc of output from his ileostomy over the past 8 hours. No signs of any active bleeding. Hemodynamically, the patient is on IV fluids at KVO. He is also on pressors and norepinephrine is running at a low dose of 0.02 mcg/kg/min. He is covered with broad-spectrum antibiotics and he is currently on IV cefepime. He did grow Pseudomonas in his sputum analysis and underlying pseudomonal infection/pneumonia cannot be completely excluded. In terms of his blood work from today, the patient has a white cell count of 6.3, hemoglobin 9.1. And a platelet count of 197. The rest of the electrolytes are all stable with a serum bicarb of 19, sodium of 138, potassium level 3.6, chloride 111, BUN is 14 with a creatinine of 0.5. He has ionized calcium level was at 4.9. His LFTs are essentially within normal limits. Total protein is at 6.7 with an albumin level of 2.8. Note that the patient was given a trial of extubation yesterday. Within 2 hours postextubation, the patient had to be reintubated because of increased work of breathing and hypoxic respiratory failure. As such, the patient has been kept intubated for now. The patient is arousable even while being on sedation and can follow some simple commands. On 03/03/2024, the patient is being seen for a follow-up. As mentioned earlier, the patient failed extubation on 03/01/2024 and the bronchoscopy was done on 03/02/2024 and it showed copious amount of mucous plugs and therapeutic airway suctioning was done. Repeat bronchoscopy was done today and similar abundant respiratory secretions and mucous plugs were identified although they were somewhat less compared to yesterday the total amount of aspirate was in the order of 15 to 20 cc of purulent material. As such, I am not seeing a immediate successful way of extubating this patient especially the patient has poor ability to perform pulmonary toileting and has a weak cough and has an underlying tracheal stenosis with ongoing pneumonia. Based on that, I made recommendations for insertion of a tracheostomy tube. Meanwhile, this morning, the patient remains on the mechanical ventilator. He is on assist-control mode at a rate of 26 with a tidal volume of 500 and FiO2 of 50% with a PEEP of 6. The blood gases were not obtained today. Chest x-ray findings are stable and the patient has some slight improvement in the bibasilar pulmonary opacities seen earlier. Blood work from today shows a WBC count of 6 with a hemoglobin 9.6 and a platelet count of 216. BUN is 10 with a creatinine of 0.4 and a sodium levels at 138. The patient remains on TPN for nutritional support and the patient is on TPN at rate of 30 cc an hour. He remains on low-dose norepinephrine at 0.05 mcg/kg/min and the patient remains on propofol running at 60 mcg/kg/min and the patient is arousable even while being on sedation. No other significant events overnight. On 03/04/2024, the patient is being seen for a follow-up. Awake and arousable despite being on propofol at 60 mcg/kg/min. Remains on mechanical ventilator, assist-control mode rate of 16, tidal volume of 500, FiO2 of 50% with a PEEP of 6. Unable to obtain blood gas. Will monitor saturation and end-tidal CO2. Remains on norepinephrine at 0.04 mcg/kg/min. The ostomy output is in the order of 600 to 700 cc every 8 hours. Remains on TPN for nutritional support at a rate of 30 cc. The BUN is 9 with a creatinine of 0.44. Serum bicarb is at 19 and a sodium levels at 137. The white cell count of 5 with a hemoglobin of 9.0. The bronchioloalveolar lavage that was collected earlier showing again gram- negative bacillus, awaiting final cultures and the patient remains on IV cefepime. General surgery is on the case and the patient is going to undergo a tracheostomy tube insertion tomorrow for ongoing respiratory support as the patient may not be able to wean successfully for the reasons mentioned earlier. On 03/05/2024, the patient is awaiting a tracheostomy tube insertion. He is relatively awake while being on propofol at 60 mcg/kg/min. He remains on assist-control mode rate of 16, tidal volume of 500, FiO2 50% with a PEEP of 6. No blood gases. Chest x-ray findings are stable. He remains on TPN for nutritional support at rate of 30 cc an hour. Ileostomy output is quite high in the order of 700 cc every 8 hours. He remains on low-dose norepinephrine which is running at 0.03 mcg/kg/min.Meanwhile, the white cell count is at 4.2 with a hemoglobin 9.3 and a platelet count of 227. BUN is 10 with a creatinine of 0.4 and a sodium levels at 137 and a potassium level of 3.9. Remains off Lovenox in preparation for his tracheostomy tube. No other significant events overnight. No significant orotracheal secretions. The most recent bronchioloalveolar lavage that was done on 03/02/2024 was consistent with Pseudomonas aeruginosa, resistant to cefepime and resistant to Fortaz. Nevertheless, it has been sensitive to Zosyn. The patient remains on IV Zosyn for now. Objective - Vital Signs Vital signs: Vital Signs Temp 97.6 F 03/05/24 08:00 Pulse 81 03/05/24 09:00 Resp 20 03/05/24 09:00 BP 128/62 03/05/24 09:00 Pulse Ox 100 03/05/24 09:00 FiO2 50 03/05/24 08:02 Intake & Output 03/04/24 03/05/24 03/05/24 18:59 06:59 18:59 Intake Total 4811.006 6248.099 1154.655 Output Total 725 1859 165 Balance 571.819 -741.901 989.655 Weight 93.9 kg Intake: IV 880 750 60 Cefepime 2 gm In Sodium 50 200 Chloride 0.9% 100 ml @ 25 mls/hr IVPB Q8H ANNIE Rx#: [id number] KVO 300 250 60 Mvi, Adult No.4 with Vit 330 300 K 10 ml Trace (Conc-1Ml/ Dose) 1 ml Sodium Acetate 40 meq Potassium Acetate 40 meq Calcium Gluconate 1 gm Magnesium Sulfate gm 1.5 gm Potassium Phosphate 24 mmol In Amino Acids 5 %/Dextrose 20 % 1,000 ml @ 30 mls/hr IV .Q24H ANNIE Rx#: [id number] Potassium Chloride 10 meq 200 In Water For Injection 1 100ml.bag @ 100 mls/hr IVPB Q1H ANNIE Rx#: [id number] Intake, IV Titration 416.819 733.595 8431.655 Amount Mvi, Adult No.4 with Vit 1013.5 K 10 ml Trace (Conc-1Ml/ Dose) 1 ml Sodium Acetate 40 meq Potassium Acetate 50 meq Calcium Gluconate 1 gm Magnesium Sulfate gm 1.5 gm Potassium Phosphate 24 mmol In Amino Acids 5 %/Dextrose 20 % 1,000 ml @ 30 mls/hr IV .Q24H ANNIE Rx#: [id number] Norepinephrine 32 mg In 19.090 9.932 Sodium Chloride 0.9% 218 ml @ 0.08 MCG/KG/MIN 3. 653 mls/hr IV .Q24H ANNIE Rx#:[id number] propofoL 1,000 mg In 397.729 357.167 81.155 Empty Bag 1 bag @ 15 MCG/ KG/MIN 8.573 mls/hr IV . [id number] ANNIE Rx#:[id number] Output: Gastric Drainage 400 Urine 725 809 165 Stool 650 Other: Voiding Method Indwelling Catheter Indwelling Catheter ABP, PAP, CO, CI - Last Documented Arterial Blood Pressure 91/88 - Exam GENERAL: A 48-year-old male patient, currently intubated mechanically ventilated and sedated. Arousable and follows some simple commands. Orotracheal and orogastric tube are both in place Head exam was generally normal. There was no scleral icterus or corneal arcus. Mucous membranes were moist. HEENT: No scleral icterus. No conjunctival pallor. Normocephalic, atraumatic. CARDIOVASCULAR: S1 and S2 present. No murmurs, rubs, or gallops. PULMONARY: Diminished breath sounds were bilaterally. No wheezes rhonchi or crackles ABDOMEN: Soft, nontender, nondistended, normoactive bowel sounds. No palpable o rganomegaly. Functioning ileostomy. 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 EXTREMITIES: No cyanosis, clubbing, or pedal edema. NEUROLOGICAL: Unable to fully assess the patient has intubated mechanically ventilated and sedated. SKIN: No rashes. Left chest PICC line. - Labs CBC & Chem 7: 03/05/24 06:30 03/05/24 06:30 Labs: Abnormal Lab Results - Last 24 Hours (Table) 03/05/24 03/05/24 Range/Units 06:30 06:30 RBC 3.57 L (4.30-5.90) m/uL Hgb 9.3 L (13.0-17.5) gm/dL Hct 31.7 L (39.0-53.0) % MCHC 29.2 L (31.0-37.0) g/dL RDW 17.3 H (11.5-15.5) % Chloride 110 H (98-107) mmol/L Carbon Dioxide 21 L (22-30) mmol/L Creatinine 0.41 L (0.66-1.25) mg/dL Microbiology - Last 24 Hours (Table) 03/02/24 17:43 Gram Stain - Preliminary Bronchoalviolar Lavage - Left Bronchial Washings Culture - Preliminary Gram Neg Bacilli Assessment and Plan Plan: Acute hypoxic and hypercapnic respiratory failure, requiring mechanical intubation on 02/26/24. The patient is known to have chronic respiratory insufficiency as the patient has poor ability to perform pulmonary toileting, weak cough, and has had recurrent pneumonias with gram-negative and MRSA. Most recent sputum sample from 02/26/2024 is positive for Pseudomonas aeruginosa and the patient is currently on IV cefepime. Patient failed BiPAP therapy during this current admission the patient had to be intubated and placed on the mechanical ventilator on 02/26/2024. The patient was given a trial of extubation on 03/01/2024 and within 2 hours of extubation he had to be reintubated for increased work of breathing and hypoxic respiratory failure. Bronchoscopy was done on 03/02/2024 and 03/03/2024 revealed copious amount of purulent respiratory secretions and mucous plugs which probably contributing to his ongoing respiratory failure. The patient has poor ability to cough and perform pulmonary toileting and clear his respiratory secretions. 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 The bronchoalveolar lavage is showing Pseudomonas aeruginosa and the sensitivities were noted and the patient remains on IV Zosyn. . Chest x-ray findings are essentially stable. The patient is scheduled to undergo a tracheostomy tube insertion today. Tracheal stenosis at the site of the previously inserted tracheostomy tube, visualized on most recent bronchoscopy Previous history of recurrent ventilator dependent respiratory failure, secondary to pneumonia and mucous plugging. The patient has undergone previous bronchoscopies and cultures from bronchoscopy on 12/31/2023 was positive for MRSA and subsequent bronchoscopy on 01/03/2024 was positive for Klebsiella pneumoniae and Bella glabrata. Most recent sputum analysis from 02/26/2024 was positive for Pseudomonas aeruginosa and the patient is currently on IV cefepime. Repeat bronchioloalveolar lavage from 03/02/2024 is positive for Pseudomonas aeruginosa. Sepsis secondary to above, recurrent pneumonia, currently low-dose norepinephrine Leukocytosis, resolved Crohn's disease, with previous complication of bowel perforation s/p colectomy and diverting ileostomy. The patient also has had previous history of abdominal wall bleeding there is currently inactive and stable. The patient has a high output ileostomy TPN for nutritional support Electrolyte imbalance at time of admission including hyponatremia, hypokalemia, hypophosphatemia, hypomagnesemia and hyperphosphatemia, all resolved Tracheobronchomalacia History of DVT, on therapeutic dose of Lovenox CVA/TIA, with residual left-sided weakness Right BKA History of asystole/cardiac arrest in 2021 Plan: The patient will likely failed extubation. Serial bronchoscopies on 03/02/2024 and 03/03/2024 showed copious and abundant respiratory secretions and mucous plugs which will hinder this patient's ability to extubate successfully. Noted the patient has a very weak cough, poor ability to clear respiratory secretions and the patient also has a tracheal stenosis. Based on that, the patient is going to undergo a tracheostomy tube insertion today Repeat bronchioloalveolar lavage was done on 03/02/2024 and the culture are positive for Pseudomonas aeruginosa Continue IV IV Zosyn Continue vent support TPN for nutritional support Continue bronchodilators Lovenox for DVT prophylaxis Will continue to follow make further recommendations based on his progress. Critical care evaluation that was done more than 30 minutes. Time with Patient: Greater than 30
[2024-03-05] MEDS: LACTATED RINGERS 1,000 ML IV ONE (17:26)
[2024-03-05] MEDS: THROMBIN (BOVINE) 5,000 UNIT VIAL MISCELLANE ONE (18:23)
--- NOTE | 2024-03-05 18:40 | CDI ---
Documentation Clarification Form Date: 03/05/2024 06:19:37 PM From: Stephanie Child RN CCDS Phone: [phone] Admit Date: 02/25/2024 05:20:00 PM Patient Name: Ponce Beckett Visit Number: [id number] Discharge Date: ATTENTION: The Clinical Documentation Specialists (CDI) and [facility] Coding Staff appreciate your assistance in clarifying documentation. Please respond to the clarification below the line at the bottom and electronically sign. The CDI & [facility] Coding staff will review the response and follow-up if needed. Please note: Queries are made part of the Legal Health Record. If you have any questions, please contact the author of this message via ITS. Doctorr: Chepe Garrett Sepsis is documented in the HP 02/25 through medicine progress notes 03/03, but is not noted in subsequent documentation. Clarification is requested. History/Risk Factors: 48 year old male presents to the ED for increased shortness of breath was placed on a nonrebreather and ultimately required BiPAP. Medical History: CVA, DVT, Crohn's, previous MRSA infections, BKA and smoker. 02/25, HP. Clinical Indicators: VSS 02/24: B/P 163/77; HR 97; Temp 98.1F Oral; RR 22; SpO2 87% 5L nc LABS, 02/24: Wbc 11.2, Neutrophils 6.1, Plasma lactic acid 1.0 LABS, 02/25: Wbc 18.9, Neutrophils 17.50; Plasma lactic acid 1.9 Sputum Culture, 02/25: Pseudomonas aeruginosa CXR, 02/24: Suspected posterior right pleural effusion and/or infiltrate. HP, 02/25: Shortness of breath,acute hypoxic respiratory failurerequiringmechanical ventilation, likely secondary to recurrentmucous pluggingwith concerns of possibleright lower lobepneumonia Possibleright lower lobepneumonia, present on admissionversusrecurrent mucous pluggingwithatelectasis, will obtain procalcitonin Sepsis, present on admission secondary to above ID Consult, 02/25: patient presented to hospital with sepsis in this patient who did have a low- grade fever elevated white count tachycardia meeting criteria for SIRS source likely pneumonia at this patient presenting with increasing shortness of breath cough with evidence of right-sided infiltrate, patient has been admitted to the hospital and will need to cover for resistant gram-positive as well as gram- negative. Treatment: 02/25 0.9NS IV 3L; 02/25 Zosyn IVPB x 1; 02/25 Vancomycin IVPB x 2; 02/25 02/25 Zosyn IVPB Q8H; 02/26 Cefepime IVPB x 1; 02/26 03/05 Cefepime IVPB Q8H; 02/26 Vancomycin IVPB x 1; 03/05 Zosyn IVPB Q8H. Please clarify if the Sepsis is: [ ] Sepsis confirmed, remains under treatment [ ] Sepsis confirmed, resolved [ ] Other condition, please specify [ ] Unable to determine (Template Last Revised: May 2020) sepsis MTDD
--- NOTE | 2024-03-05 20:03 | P.OP ---
Date of Procedure: 03/05/24 Preoperative Diagnosis: Vent Dependent Respiratory Failure Postoperative Diagnosis: Vent Dependent Respiratory Failure Procedure(s) Performed: Tracheostomy Anesthesia: other (LMA) Surgeon: George Montiel Estimated Blood Loss (ml): 250 Urine output (ml): 100 Pathology: none sent Condition: critical Disposition: ICU Description of Procedure: Informed consent was reviewed. The patient was delivered to the OR and placed in the supine position. Timeout was performed. A number #15 blade was used to create a vertical incision extending 3 cm inferiorly from the lower border of the cricoid through dermis. Bovie dissection (with effort to avoid anterior jug ular veins) was employed to remove fat overlying the strap muscles. The strap muscles were grasped with Allis clamps and pulled laterally to identify the midline with hemostat (with bovie) separation of the straps in the midline. There was a great deal of scar tissue which made the surgery difficult due to patients previous tracheostomy. The 'sweet spot' immediately below the cricoid and above the thyroid isthmus was identified by inspection and palpation and then opened with Bovie on cautery mode. With tips of a hemostat directed toward the trach, blunt dissection with the tips of the hemostat identifed the anterior tracheal wall. The hemostat was redirected inferiorly to separate the posterior aspect of the thyroid isthmus from the trachea. The hemostat was then used to clamp across the isthmus off the midline with a second hemostat placed opposite. Bovie cautery the isthmus and both edges were sutured with a 3-0 silk 'baseball stitch', and hemostasis was achieved. The anterior tracheal wall was further cleaned of overlying soft tissue with Kitners. The tracheal rings were identified. The anesthesiologist was requested to deflate the cuff of the ETT and advance the tip into the right mainstem. A small hemostat was directed toward the trachea and pushed through the membranous ring between 2nd and 3rd cartilaginous rings. The hemostat was then manipulated to direct a #11 blade to make a horizontal cut in the membranous trachea. Vertical lateral cuts were made on either side of the opening inferiorly through the third cartilaginous ring. The ET tube was pulled back out of the mainstem and cuff inflated with ventilation restored through the ETT. The endotracheal tube was partially removed, so that the tip was just superior to the tracheotomy site. The tracheos roshan tube with obturator was then placed. The inner canula was placed, and placement of the tube was confirmed with CO2 return on the anesthesia monitor.
--- NOTE | 2024-03-05 20:13 | XR ---
EXAMINATION TYPE: XR chest 1V portable DATE OF EXAM: 03/05/2024 8:08 PM COMPARISON: Chest radiographs from 03/05/2024 CLINICAL INDICATION: Male, 48 years old with history of NG tube placement; [facility] TECHNIQUE: XR chest 1V portable Frontal view of the chest. FINDINGS: Lungs/Pleura: There is no evidence of pleural effusion, focal consolidation, or pneumothorax. Pulmonary vascularity: Unremarkable. Heart/mediastinum: Cardiomediastinal silhouette is unremarkable. Musculoskeletal: No acute osseous pathology. Nasogastric tube projecting over the gastric lumen. IMPRESSION: No acute cardiopulmonary disease/process. [facility], , 03/05/2024 8:10 PM
--- NOTE | 2024-03-05 20:25 | XR ---
EXAMINATION TYPE: XR chest 1V portable DATE OF EXAM: 03/05/2024 7:30 PM COMPARISON: Chest radiographs from 03/05/2024 CLINICAL INDICATION: Male, 48 years old with history of post trach; TECHNIQUE: XR chest 1V portable Frontal view of the chest. FINDINGS: Lungs/Pleura: There is no evidence of pleural effusion, focal consolidation, or pneumothorax. Pulmonary vascularity: Unremarkable. Heart/mediastinum: Cardiomediastinal silhouette is unremarkable. Musculoskeletal: No acute osseous pathology. Other findings: None Lines/Tubes: Endotracheal tube with distal tip 2.6 cm above the avery. Left internal jugular central venous catheter with distal tip at the cavoatrial junction. IMPRESSION: 1. No acute cardiopulmonary disease/process. 2. Endotracheal tube in satisfactory position. 3. Left central venous catheter in satisfactory position. [facility], , 03/05/2024 8:23 PM
--- NOTE | 2024-03-06 04:31 | PN ---
PROGRESS NOTE DATE OF SERVICE: 03/05/2024 SUBJECTIVE: This is a 48-year-old gentleman who was admitted with multiple complex medical issues including Pseudomonas pneumonia, is on mechanical ventilation. The tracheostomy is being planned at this time. The patient is on TPN. Most recent chest x-ray was reviewed. The patient is trying to wake up. PAST MEDICAL HISTORY: Reviewed. REVIEW OF SYSTEMS: Could not be taken. CURRENT MEDICATIONS: Reviewed. PHYSICAL EXAMINATION: VITAL SIGNS: Pulse is 83, blood pressure is 112/53, respirations 26. HEENT: Conjunctivae normal. CARDIAC: S1, S2. RESPIRATIONS: A few scattered rhonchi. ABDOMEN: Soft. NERVOUS SYSTEM: The patient is on mechanical ventilation. LABORATORY DATA: Hemoglobin 9.2. Rest of the labs are noted. Chest x-ray reviewed. ASSESSMENT: 1. Pseudomonas pneumonia with possible sepsis and acute hypoxic respiratory failure with right lower lobe pneumonia, on mechanical ventilation. 2. Recurrent mucus plugging. 3. History of deep venous thrombosis and right below-knee amputation. 4. History of Crohn disease with previous bowel perforation. 5. Profound immunosuppression. 6. Protein-calorie malnutrition, on PPN. 7. History of previous cardiac arrest in 2021. 8. History of methicillin-resistant Staphylococcus aureus. 9. Multiple complex medical issues. RECOMMENDATIONS: Recommend to continue current management and continue symptomatic treatment. Otherwise, sputum and bronchial washings came back positive for Pseudomonas. Otherwise, continue the antibiotics. The patient has cefepime. Chest x-ray noted tracheostomy. Continue the current medications. Monitor closely. Guarded prognosis because of multiple complex medical issues. Further recommendations to follow. MMODL / IJN: [id number] /
[2024-03-06 04:48] LABS: Glucose,Whole Blood 96 mg/dL (70-110)
[2024-03-06 06:38] LABS: African American GFR (CKD) >90 (>60 ml/min/1.73 sqM); Anion Gap 5 mmol/L; Blood Urea Nitrogen 13 mg/dL (9-20); Calcium 8.4 mg/dL (8.4-10.2); Carbon Dioxide 21 mmol/L (22-30); Chloride 112 mmol/L (98-107); Glucose 96 mg/dL (74-99); Magnesium 2.1 mg/dL (1.6-2.3); Non-African American GFR(CKD) >90 (>60 ml/min/1.73 sqM); Phosphorus 3.4 mg/dL (2.5-4.5); Sodium 138 mmol/L (137-145)
[2024-03-06 07:47] LABS: Anisocytosis Slight; Basophils % (A) 0 %; Eosinophils # (A) 0.3 k/uL (0-0.7); Eosinophils % (A) 6 %; HGB 9.1 gm/dL (13.0-17.5); Hypochromasia Marked; Lymphocytes # (A) 1.1 k/uL (1.0-4.8); Lymphocytes % (A) 22 %; MCH 25.9 pg (25.0-35.0); MCHC 29.4 g/dL (31.0-37.0); Mean Platelet Volume 9.7; Monocytes # (A) 0.2 k/uL (0-1.0); Monocytes % (A) 4 %; Neutrophils # (A) 3.2 k/uL (1.3-7.7); Neutrophils % (A) 65 %; Platelet Count 258 k/uL (150-450); Poikilocytosis Slight; RBC 3.52 m/uL (4.30-5.90); RDW 17.6 % (11.5-15.5); WBC 4.9 k/uL (3.8-10.6)
--- NOTE | 2024-03-06 08:19 | XR ---
EXAMINATION TYPE: XR chest 1V portable DATE OF EXAM: 03/06/2024 6:27 AM COMPARISON: 03/05/2024 CLINICAL INDICATION: Male, 48 years old with history of mechanical ventilation, FINDINGS: Indwelling tubes and catheters are unchanged. No change in bibasilar opacities. Stable appearance of the cardio-mediastinal structures at this time. Pleural effusion unchanged. IMPRESSION: 1. Stable portable chest. Clinical correlation and follow up until resolution is recommended. [facility], , 03/06/2024 8:16 AM
--- NOTE | 2024-03-06 10:09 | P.PN ---
Subjective Progress Note Date: 03/06/24 SURGICAL PROGRESS NOTE CHIEF COMPLAINT: Respiratory failure HISTORY OF PRESENT ILLNESS: Patient is status post tracheostomy placement yesterday. Patient has some mild oozing around the trach site. Otherwise no issues with trach currently. Afebrile. Vital stable. WBC 4.9 Hgb 9.1 platelets 258 PHYSICAL EXAM: VITAL SIGNS: Reviewed. GENERAL: no acute distress. HEENT: Tracheostomy site with small amount of blood oozing. ASSESSMENT: 1. Acute hypoxic and hypercapnic respiratory failure. Patient having difficulty weaning from the vent. Status post tracheostomy placement 2. Tracheal stenosis. Prior history of tracheostomy PLAN: -Continue supportive care -Continue ICU management Physician Heel Sorter note has been reviewed by physician. Signing provider agrees with the documented findings, assessment, and plan of care. Objective - Vital Signs Vital signs: Vital Signs Temp 99.9 F H 03/06/24 08:00 Pulse 94 03/06/24 09:00 Resp 16 03/06/24 09:00 BP 114/56 03/06/24 09:00 Pulse Ox 99 03/06/24 09:00 FiO2 50 03/06/24 08:00 Intake & Output 03/05/24 03/06/24 03/06/24 18:59 06:59 18:59 Intake Total 1878.942 604.953 173.026 Output Total 1420 1144 145 Balance 458.942 -539.047 28.026 Intake: IV 520 260 130 KVO 220 60 30 Piperacillin-Tazobactam 3 200 100 .375 gm In Sodium Chloride 0.9% 100 ml @ 25 mls/hr IVPB Q8H ANNIE Rx#: [id number] Intake, IV Titration 1358.942 344.953 43.026 Amount Mvi, Adult No.4 with Vit 1013.5 K 10 ml Trace (Conc-1Ml/ Dose) 1 ml Sodium Acetate 40 meq Potassium Acetate 50 meq Calcium Gluconate 1 gm Magnesium Sulfate gm 1.5 gm Potassium Phosphate 24 mmol In Amino Acids 5 %/Dextrose 20 % 1,000 ml @ 30 mls/hr IV .Q24H ANNIE Rx#: [id number] Norepinephrine 32 mg In 14.151 19.771 8.448 Sodium Chloride 0.9% 218 ml @ 0.08 MCG/KG/MIN 3. 653 mls/hr IV .Q24H ANNIE Rx#:[id number] propofoL 1,000 mg In 331.291 325.182 34.578 Empty Bag 1 bag @ 15 MCG/ KG/MIN 8.573 mls/hr IV . [id number] ANNIE Rx#:[id number] Output: Gastric Drainage 100 Urine 1170 594 145 Stool 450 Estimated Blood Loss 250 Other: Voiding Method Indwelling Catheter Indwelling Catheter Indwelling Catheter ABP, PAP, CO, CI - Last Documented Arterial Blood Pressure 91/88 - Labs CBC & Chem 7: 03/08/24 05:25 03/09/24 05:34 Labs: Abnormal Lab Results - Last 24 Hours (Table) 03/05/24 03/06/24 03/06/24 Range/Units 11:57 05:40 06:35 RBC 3.52 L (4.30-5.90) m/uL Hgb 9.1 L (13.0-17.5) gm/dL Hct 31.0 L (39.0-53.0) % MCHC 29.4 L (31.0-37.0) g/dL RDW 17.6 H (11.5-15.5) % Chloride 112 H (98-107) mmol/L Carbon Dioxide 21 L (22-30) mmol/L Creatinine 0.45 L (0.66-1.25) mg/dL POC Glucose (mg/dL) 149 H (70-110) mg/dL Microbiology - Last 24 Hours (Table) 03/02/24 17:43 Gram Stain - Final Bronchoalviolar Lavage - Left Bronchial Washings Culture - Final Pseudomonas aeruginosa
[2024-03-06 10:55] LABS: Glucose,Whole Blood 97 mg/dL (70-110)
[2024-03-06] MEDS: MVI, ADULT NO.4 WITH VIT K 10 ML, TRACE (CONC-1ML/DOSE) 1 ML, SODIUM ACETATE 40 MEQ, PO... IV SCH (11:13)
[2024-03-06] MEDS: POTASSIUM CHLORIDE 20 MEQ in WATER FOR INJECTION 1 100ML.BAG IVPB STA (12:23)
[2024-03-06 12:33] LABS: Glucose,Whole Blood 127 mg/dL (70-110)
--- NOTE | 2024-03-06 14:09 | P.PN ---
Subjective Progress Note Date: 03/06/24 Patient is a 48-year-old male with complex past medical history including CVA, previous DVTs, right BKA, cardiac arrest in 2021, Crohn's disease, enterocutaneous fistulas, previous bowel resection, ventilator dependent respiratory failure, previous tracheostomy and reversal. Recently was admitted 12/13/2023 through 12/25/2023 for pneumonia and respiratory failure due to mucous plugging. He was intubated and placed on mechanical ventilator for approximately 6 days. He did have a bronchoscopy with BAL, microbiology positive for haemophilus influenza. Eventually, discharged home, and returned 01/02/24 for GIB from his ostomy. Was reintubated and did spend some time on the ventilator for reccurent pneumonia and mucous plugging. During this time, had multiple bronchoscopies with BAL, once on 12/31/2023 and again on 01/03/2024, isolated organisms including MRSA and Pseudomonas. Patient was eventually discharged back home on 01/16/2024. More recently, patient had an ER visit for increased work of breathing on February 22, and the patient was sent home. Returned for similar symptoms yesterday afternoon. Chest x-ray done on admission showing cardiomegaly with pulmonary vascular congestion and questionable right lower lobe infiltrate or effusion. CBC: WBC count 11.2, hemoglobin 10.5, hematocrit 37.3, platelets 315. CMP: Sodium 138, potassium 4.8, chloride 97, serum bicarb 39, BUN 23, creatinine 0.45, glucose 103. Lactic 1. LFTs unremarkable. Troponin less than 0.012. I am evaluating this patient emergency department, he is currently unresponsive, to even painful stimuli. He is on a 15 L nonrebreather. SpO2 88%. Diminished breath sounds on the right Will place this patient on BiPAP with initial settings 16/5 FiO2 to be titrated accordingly. Will get a stat ABG. We will repeat chest x-ray. I did talk to the patient's son, Alan, he is adamant that the patient remain a full code, would want the patient intubated if necessary. On reassessment in the emergency department, patient remained on BiPAP with settings 16/5 100%. He remains unresponsive to painful stimuli. Now only achieving tidal volumes ranging from 100 to 200 cc. Unfortunately, we were not able to to get an initial blood gas. I recommended that the patient be moved to the trauma bay and intubated by the [facility] RECEIVER. Follow-up chest x-ray showing the endotracheal tube in appropriate position above the avery. Orogastric tube coursing below the diaphragm. Initial ventilator settings include assist-co ntrol, respiratory rate 20, tidal volume 500, FiO2 100%, PEEP of 5. Currently, patient is fairly asynchronous with the ventilator and he is biting the tube. There are copious amounts of blood-tinged sputum in the ET tube. Elevated peak airway pressures of 45. Static pressure 32. The nurses are working on appropriately sedating the patient with propofol. Postintubation, the patient did become hypotensive, currently receiving his second liter of normal saline. Will also start the patient on norepinephrine to maintain a MAP of greater than 65 mmHg. I did insert a left femoral arterial line. Following this, we did obtain an ABG showing profound hypercapnic and hypoxic respiratory failure. PaO2 of 89, pCO2 98, pH of 7.11. Appropriate ventilator adjustments were made including increasing the rate to 26 and PEEP can be increased to 8. Patient may eventually need repeat bronchoscopy with BAL. Case will be discussed with Dr. Munoz. Patient is still waiting for a bed in the intensive care unit. I did call and update patient's son Alan about his change in clinical condition. 02/27/24 - Patient seen at bedside today, in the ICU. He is on day 3 of his hospital stay, admitted on 02/25/24 and in the ICU since 02/26/24. He remains mechanically ventilated intubated since 02/26/24. He remains on assist-control with a rate of 26, volume 500, FiO2 50% (down from 60%) and a PEEP of 8. ABG done today (on 60% FiO2) showed pO2 126, pCO2 35, pH is 7.50, indicating a mixed respiratory and metabolic alkalosis. Abnormality shown on the patient's lab this morning, inconsistent and drastic changes from previous labs. Will perform a redraw today to get a better idea on how the labs are changed. He remains on vasopressin 0.03 units/min, Levophed at 0.07 mcg/kg/min (6.8 mcg/min), propofol 75 mcg/kg/min, receiving TPN at 30 cc/h (which is goal). Patient's blood pressure today 131/53. Additionally, patient receiving cefepime and vancomycin secondary to leukocytosis and a Tmax on 02/26/24 of 100.5 F. Sputum culture currently pending. Chest x-ray from this morning showed improving right perihilar and lower lobe infiltrate. Additionally, patient is currently receiving TPN (Clinimix) at 30 cc/h which is goal for dietitian. 02/28/24 - Patient seen at bedside today, in the ICU. He is on day 4 of his hospital stay, admitted on 02/25/24 and in the ICU since 02/26/24. He remains intubated and mechanically ventilated since 02/26/24. He remains on assist- control with a rate of 25, [place] 500, FiO2 40% and PEEP of 8. ABG done today (while on 100% FiO2) showed pO2 255, pCO2 37, pH 7.44 indicating slight respiratory alkalosis. The abnormalities noted on the patient's labs from yesterday were rechecked on a couple of occasion and seem to be accurate. This morning labs showed WBC 5.2, hemoglobin 8.2, sodium 139, potassium 3.8, chloride 114, BUN 10, creatinine 0.44, calcium 8.2, phosphorus 2.6, magnesium 2.0. Patient received supplementation with sodium phosphate, potassium chloride and magnesium sulfate. He remains on Levophed 0.07 mcg/kg/min (7 mcg/min), propofol 75 mcg/kg/min, normal saline at 30 cc/h and TPN at 30 cc/h (which is goal). Additionally, patient remains on cefepime and vancomycin; sputum culture is final for Pseudomonas aeruginosa that any resistance. Blood cultures continue to be pending at this time. Chest x-ray from this morning continue show right lower lobe infiltrate. 02/29/24 - Patient seen at bedside today, in the ICU. He is on day 5 of his hospital stay, admitted on 02/25/24 and then the ICU since 02/26/24. He remains intubated mechanically ventilated since 02/26/24. He remains on assist-control with a rate of 26, volume 500, FiO2 50%, PEEP of 8. ABG completed today showed pO2 96, pCO2 30, pH 7.51 indicating a respiratory and metabolic alkalosis. On labs drawn today patient's WBC is 4.1, hemoglobin 8.0, sodium 138, chloride 114, potassium 3.9, BUN 13, creatinine 0.46, phosphorus 2.2, magnesium 1.9. Patient received 1 g magnesium sulfate this morning and 15 mmol sodium phosphate. He remains on propofol 75 mcg/mg/min, Levophed at 0.03 mcg/kg/min (~3 mcg/min) and TPN at 30 cc/h (which is goal). He remains on 0.9% normal saline at 20 cc/h, and cefepime 2 g every 8 hours. Blood cultures remain pending at this time. Chest x-ray shows more prominent small bilateral pleural effusions and associated bibasilar opacities. The patient is seen today March 01, 2024 in follow-up on the regular medical floor. He remains intubated on the mechanical ventilator and assist-control mode with a rate of 26, tidal volume 500, FiO2 50% and a PEEP of 8. Morning blood gases revealed a PaO2 111, pCO2 22 and a pH of 7.48. He is currently on propofol at 55 mcg/kg/min. Receiving TPN at 30 mL/h. Normal saline at KVO. He remains on cefepime for pseudomonal bronchial infection. White count 5.2. Hemoglobin 8.4. Platelets 184. Sodium 136. Potassium 3.5. Bicarb 20. BUN 13. Creatinine 0.53. Glucose 87. He is afebrile. Hemodynamically stable. Chest x-ray reveals persistent small bilateral effusions. He is continued on DuoNebs. Lovenox for DVT prophylaxis. On today's evaluation of 03/02/2024, the patient is being seen in follow-up in the intensive care unit. The patient remains intubated on the mechanical ventilator. The patient is sedated and currently propofol is running at 60 mcg/kg/min. He is calm and comfortable and synchronous with mechanical ventilator. No significant agitation. He is on assist-control mode of mechanical ventilation at rate of 26, tidal volume of 500, FiO2 of 60% with a PEEP of 8. Chest x-ray showing a component of pulm vessel congestion, atelectatic changes in lung bases and small bilateral pleural effusions. ET tube is around 5 cm above the avery. The blood gas showed a pH of 7.41 with a pCO2 of 34 and pO2 of 92 and there has been some improvement in his oxygenation over the past 24 hours. He remains NPO. He remains on TPN for nutritional support which is running at rate of 30 cc an hour. He has an ileostomy and output from the ileostomy is quite high and he has produced around 600 cc of output from his ileostomy over the past 8 hours. No signs of any active bleeding. Hemodynamically, the patient is on IV fluids at KVO. He is also on pressors and norepinephrine is running at a low dose of 0.02 mcg/kg/min. He is covered with broad-spectrum antibiotics and he is currently on IV cefepime. He did grow Pseudomonas in his sputum analysis and underlying pseudomonal infection/pneumonia cannot be completely excluded. In terms of his blood work from today, the patient has a white cell count of 6.3, hemoglobin 9.1. And a platelet count of 197. The rest of the electrolytes are all stable with a serum bicarb of 19, sodium of 138, potassium level 3.6, chloride 111, BUN is 14 with a creatinine of 0.5. He has ionized calcium level was at 4.9. His LFTs are essentially within normal limits. Total protein is at 6.7 with an albumin level of 2.8. Note that the patient was given a trial of extubation yesterday. Within 2 hours postextubation, the patient had to be reintubated because of increased work of breathing and hypoxic respiratory failure. As such, the patient has been kept intubated for now. The patient is arousable even while being on sedation and can follow some simple commands. On 03/03/2024, the patient is being seen for a follow-up. As mentioned earlier, the patient failed extubation on 03/01/2024 and the bronchoscopy was done on 03/02/2024 and it showed copious amount of mucous plugs and therapeutic airway suctioning was done. Repeat bronchoscopy was done today and similar abundant respiratory secretions and mucous plugs were identified although they were somewhat less compared to yesterday the total amount of aspirate was in the order of 15 to 20 cc of purulent material. As such, I am not seeing a immediate successful way of extubating this patient especially the patient has poor ability to perform pulmonary toileting and has a weak cough and has an underlying tracheal stenosis with ongoing pneumonia. Based on that, I made recommendations for insertion of a tracheostomy tube. Meanwhile, this morning, the patient remains on the mechanical ventilator. He is on assist-control mode at a rate of 26 with a tidal volume of 500 and FiO2 of 50% with a PEEP of 6. The blood gases were not obtained today. Chest x-ray findings are stable and the patient has some slight improvement in the bibasilar pulmonary opacities seen earlier. Blood work from today shows a WBC count of 6 with a hemoglobin 9.6 and a platelet count of 216. BUN is 10 with a creatinine of 0.4 and a sodium levels at 138. The patient remains on TPN for nutritional support and the patient is on TPN at rate of 30 cc an hour. He remains on low-dose norepinephrine at 0.05 mcg/kg/min and the patient remains on propofol running at 60 mcg/kg/min and the patient is arousable even while being on sedation. No other significant events overnight. On 03/04/2024, the patient is being seen for a follow-up. Awake and arousable despite being on propofol at 60 mcg/kg/min. Remains on mechanical ventilator, assist-control mode rate of 16, tidal volume of 500, FiO2 of 50% with a PEEP of 6. Unable to obtain blood gas. Will monitor saturation and end-tidal CO2. Remains on norepinephrine at 0.04 mcg/kg/min. The ostomy output is in the order of 600 to 700 cc every 8 hours. Remains on TPN for nutritional support at a rate of 30 cc. The BUN is 9 with a creatinine of 0.44. Serum bicarb is at 19 and a sodium levels at 137. The white cell count of 5 with a hemoglobin of 9.0. The bronchioloalveolar lavage that was collected earlier showing again gram- negative bacillus, awaiting final cultures and the patient remains on IV cefepime. General surgery is on the case and the patient is going to undergo a tracheostomy tube insertion tomorrow for ongoing respiratory support as the patient may not be able to wean successfully for the reasons mentioned earlier. On 03/05/2024, the patient is awaiting a tracheostomy tube insertion. He is relatively awake while being on propofol at 60 mcg/kg/min. He remains on assist-control mode rate of 16, tidal volume of 500, FiO2 50% with a PEEP of 6. No blood gases. Chest x-ray findings are stable. He remains on TPN for nutritional support at rate of 30 cc an hour. Ileostomy output is quite high in the order of 700 cc every 8 hours. He remains on low-dose norepinephrine which is running at 0.03 mcg/kg/min.Meanwhile, the white cell count is at 4.2 with a hemoglobin 9.3 and a platelet count of 227. BUN is 10 with a creatinine of 0.4 and a sodium levels at 137 and a potassium level of 3.9. Remains off Lovenox in preparation for his tracheostomy tube. No other significant events overnight. No significant orotracheal secretions. The most recent bronchioloalveolar lavage that was done on 03/02/2024 was consistent with Pseudomonas aeruginosa, resistant to cefepime and resistant to Fortaz. Nevertheless, it has been sensitive to Zosyn. The patient remains on IV Zosyn for now. On 03/06/2024, patient is being seen for a follow-up. The patient underwent a t racheostomy tube insertion and yesterday and the patient has a Shiley tracheostomy tube in place. The cuff is filled with saline due to leaks. Meanwhile, the patient remains on the mechanical ventilator. Propofol has been weaned down to 20 mcg/kg/min. This morning, he is on assist-control rate of 16 tidal volume of 500, FiO2 of 50% with a PEEP of 6 and a chest x-ray shows no acute changes. Tracheostomy tube is in good location. Some limited atelectatic changes in lung bases are seen bilaterally. No significant respiratory secretions. Most recent sputum sample was again positive for Pseudomonas aeruginosa and the patient is currently on IV Zosyn based on the sensitivities. Meanwhile, the patient continues to have increased output through his ileostomy in the order of 450 cc over the past 8 hours. NG tube is also in place and the patient has produced 100 cc over the past 8 hours. Norepinephrine is running at 0.05 mcg/kg/min and TPN needs to be adjusted as the patient is being weaned off the propofol. Currently TPN is running. 30 cc an hour. The white cell count of 4.9, hemoglobin is 9.1 and a platelet count of 258. Electrolytes are all stable. Potassium level is at 3.8 and needs to be replaced. BUN 13 with a creatinine of 0.4. Blood sugar is at 127. The patient is arousable and following simple commands and answering questions appropriately while being on the mechanical ventilator. Objective - Vital Signs Vital signs: Vital Signs Temp 99.9 F H 03/06/24 08:00 Pulse 89 03/06/24 10:00 Resp 16 03/06/24 10:00 BP 99/49 03/06/24 10:00 Pulse Ox 99 03/06/24 10:00 FiO2 50 03/06/24 08:00 Intake & Output 03/05/24 03/06/24 03/06/24 18:59 06:59 18:59 Intake Total 1878.942 604.953 173.026 Output Total 1420 1144 145 Balance 458.942 -539.047 28.026 Intake: IV 520 260 130 KVO 220 60 30 Piperacillin-Tazobactam 3 200 100 .375 gm In Sodium Chloride 0.9% 100 ml @ 25 mls/hr IVPB Q8H ANNIE Rx#: [id number] Intake, IV Titration 1358.942 344.953 43.026 Amount Mvi, Adult No.4 with Vit 1013.5 K 10 ml Trace (Conc-1Ml/ Dose) 1 ml Sodium Acetate 40 meq Potassium Acetate 50 meq Calcium Gluconate 1 gm Magnesium Sulfate gm 1.5 gm Potassium Phosphate 24 mmol In Amino Acids 5 %/Dextrose 20 % 1,000 ml @ 30 mls/hr IV .Q24H ANNIE Rx#: [id number] Norepinephrine 32 mg In 14.151 19.771 8.448 Sodium Chloride 0.9% 218 ml @ 0.08 MCG/KG/MIN 3. 653 mls/hr IV .Q24H ANNIE Rx#:[id number] propofoL 1,000 mg In 331.291 325.182 34.578 Empty Bag 1 bag @ 15 MCG/ KG/MIN 8.573 mls/hr IV . [id number] ANNIE Rx#:[id number] Output: Gastric Drainage 100 Urine 1170 594 145 Stool 450 Estimated Blood Loss 250 Other: Voiding Method Indwelling Catheter Indwelling Catheter Indwelling Catheter ABP, PAP, CO, CI - Last Documented Arterial Blood Pressure 91/88 - Exam GENERAL: A 48-year-old male patient, currently has a tracheostomy tube and still attached to the mechanical ventilator, currently on low-dose propofol. Head exam was generally normal. There was no scleral icterus or corneal arcus. Mucous membranes were moist. HEENT: No scleral icterus. No conjunctival pallor. Normocephalic, atraumatic. CARDIOVASCULAR: S1 and S2 present. No murmurs, rubs, or gallops. PULMONARY: Diminished breath sounds were bilaterally. No wheezes rhonchi or crackles ABDOMEN: Soft, nontender, nondistended, normoactive bowel sounds. No palpable organomegaly. Functioning ileostomy. 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 EXTREMITIES: No cyanosis, clubbing, or pedal edema. NEUROLOGICAL: Profound weakness in all 4 extremities, weak cough, extensive muscle atrophy in all 4 extremities. Arousable and awake and follows simple commands and communicates. Still on low-dose propofol.. SKIN: No rashes. Left chest PICC line. - Labs CBC & Chem 7: 03/06/24 06:35 03/06/24 10:46 Labs: Abnormal Lab Results - Last 24 Hours (Table) 03/05/24 03/06/24 03/06/24 Range/Units 11:57 05:40 06:35 RBC 3.52 L (4.30-5.90) m/uL Hgb 9.1 L (13.0-17.5) gm/dL Hct 31.0 L (39.0-53.0) % MCHC 29.4 L (31.0-37.0) g/dL RDW 17.6 H (11.5-15.5) % Chloride 112 H (98-107) mmol/L Carbon Dioxide 21 L (22-30) mmol/L Creatinine 0.45 L (0.66-1.25) mg/dL POC Glucose (mg/dL) 149 H (70-110) mg/dL Microbiology - Last 24 Hours (Table) 03/02/24 17:43 Gram Stain - Final Bronchoalviolar Lavage - Left Bronchial Washings Culture - Final Pseudomonas aeruginosa Assessment and Plan Plan: Acute hypoxic and hypercapnic respiratory failure, requiring mechanical intubation on 02/26/24. The patient is known to have chronic respiratory insufficiency as the patient has poor ability to perform pulmonary toileting, weak cough, and has had recurrent pneumonias with gram-negative and MRSA. Most recent sputum sample from 02/26/2024 is positive for Pseudomonas aeruginosa and the patient is currently on IV cefepime. Patient failed BiPAP therapy during this current admission the patient had to be intubated and placed on the mechanical ventilator on 02/26/2024. The patient was given a trial of extubation on 03/01/2024 and within 2 hours of extubation he had to be reintubated for increased work of breathing and hypoxic respiratory failure. Bronchoscopy was done on 03/02/2024 and 03/03/2024 revealed copious amount of purulent respiratory secretions and mucous plugs which probably contributing to his ongoing respiratory failure. The patient has poor ability to cough and perform pulmonary toileting and clear his respiratory secretions. 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 The bronchoalveolar lavage is showing Pseudomonas aeruginosa and the sensitivities were noted and the patient remains on IV Zosyn. . The patient is status post tracheostomy tube insertion on 03/05/2024. Remains on a mechanical ventilator. Tracheal stenosis at the site of the previously inserted tracheostomy tube, visualized on most recent bronchoscopy Previous history of recurrent ventilator dependent respiratory failure, secondary to pneumonia and mucous plugging. The patient has undergone previous bronchoscopies and cultures from bronchoscopy on 12/31/2023 was positive for MRSA and subsequent bronchoscopy on 01/03/2024 was positive for Klebsiella pneumoniae and Bella glabrata. Most recent sputum analysis from 02/26/2024 was positive for Pseudomonas aeruginosa and the patient is currently on IV cefepime. Repeat bronchioloalveolar lavage from 03/02/2024 is positive for Pseudomonas aeruginosa. Sepsis secondary to above, recurrent pneumonia, currently low-dose norepinephrine Leukocytosis, resolved Crohn's disease, with previous complication of bowel perforation s/p colectomy and diverting ileostomy. The patient also has had previous history of abdominal wall bleeding there is currently inactive and stable. The patient has a high output ileostomy TPN for nutritional support Electrolyte imbalance at time of admission including hyponatremia, hypokalemia, hypophosphatemia, hypomagnesemia and hyperphosphatemia, all resolved Tracheobronchomalacia History of DVT, on therapeutic dose of Lovenox CVA/TIA, with residual left-sided weakness Right BKA History of asystole/cardiac arrest in 2021 Plan: The patient is status post tracheostomy tube insertion Continue vent support, no changes Wean off propofol and discontinue Wean off norepinephrine and discontinue Discontinue the NG tube Will start breathing trials on this patient once he is fully off sedation Continue IV Zosyn at the patient's most recent bronchioloalveolar lavage that was done on 03/02/2024 showed persistent Pseudomonas aeruginosa Chest x-ray findings are stable Continue IV IV Zosyn Continue vent support TPN for nutritional support Continue bronchodilators Lovenox for DVT prophylaxis Will continue to follow make further recommendations based on his progress. Critical care evaluation that was done more than 30 minutes. Time with Patient: Greater than 30
[2024-03-06 17:07] LABS: Glucose,Whole Blood 136 mg/dL (70-110)
[2024-03-06] MEDS: HYDROmorphone 1 MG/ML 1 ML SYRINGE IVP STA (17:33)
[2024-03-07 00:33] LABS: Glucose,Whole Blood 134 mg/dL (70-110)
--- NOTE | 2024-03-07 03:49 | P.PN ---
Progress Note - Text Progress Note Date: 03/07/24 CHIEF COMPLAINT: Respiratory failure HISTORY OF PRESENT ILLNESS: Patient is POD#2 Tracheostomy Placement. No acute events overnight. There are no issues with tracheostomy. PHYSICAL EXAM: VITAL SIGNS: Reviewed. GENERAL: no acute distress. HEENT: Tracheostomy site clean, dry, and intact. ASSESSMENT: 1. POD #2 Tracheostomy 2. Acute hypoxic and hypercapnic respiratory failure. 3. Tracheal stenosis. Prior history of tracheostomy PLAN: -Continue supportive care -Continue ICU management George Montiel DO [facility] [phone]
--- NOTE | 2024-03-07 04:07 | PN ---
PROGRESS NOTE DATE OF SERVICE: 03/06/2024 SUBJECTIVE: This 48-year-old gentleman admitted with Pseudomonas pneumonia and possible acute hypoxic respiratory failure, tracheostomy. The patient is much more alert at this time. The patient is on CPAP trial. PAST MEDICAL HISTORY: Reviewed. REVIEW OF SYSTEMS: Could not be taken. CURRENT MEDICATIONS: Reviewed. PHYSICAL EXAMINATION: VITAL SIGNS: Pulse is 85, blood pressure 88/60, respirations 16. CHEST: Scattered rhonchi and crackles. ABDOMEN: Soft. NERVOUS SYSTEM: Nonfocal. LABORATORY DATA: Hemoglobin 9.1. Rest of the labs are noted. ASSESSMENT: 1. Pseudomonas pneumonia acute with possible sepsis and acute hypoxic respiratory failure with right lower lobe pneumonia, present on admission, on mechanical ventilation. 2. Status post tracheostomy and on CPAP trial. 3. Recurrent mucus plugging. 4. History of DVT and right below-knee amputation. 5. History of Crohn disease with previous bowel perforation. 6. Profound immunosuppression. 7. Protein-calorie malnutrition, on PPN. 8. History of previous cardiac arrest in 2021. 9. History of methicillin-resistant Staphylococcus aureus. 10.Multiple complex medical issues. RECOMMENDATIONS: Recommend to continue current management and repeat labs. Otherwise, we will continue the antibiotics. Guarded prognosis because of multiple complex medical issues. Further recommendations to follow. I recommend serum cortisol level also. MMODL / IJN: [id number] /
[2024-03-07] MEDS: MVI, ADULT NO.4 WITH VIT K 10 ML, TRACE (CONC-1ML/DOSE) 1 ML, SODIUM ACETATE 40 MEQ, PO... IV SCH (05:11)
[2024-03-07 05:30] LABS: Glucose,Whole Blood 116 mg/dL (70-110)
[2024-03-07 06:58] LABS: Anisocytosis Slight; Basophils % (A) 1 %; Eosinophils # (A) 0.3 k/uL (0-0.7); Eosinophils % (A) 6 %; HCT 30.1 % (39.0-53.0); HGB 8.8 gm/dL (13.0-17.5); Hypochromasia Marked; Lymphocytes # (A) 1.1 k/uL (1.0-4.8); Lymphocytes % (A) 22 %; MCH 25.8 pg (25.0-35.0); MCHC 29.2 g/dL (31.0-37.0); MCV 88.5 fL (80.0-100.0); Mean Platelet Volume 9.1; Monocytes # (A) 0.2 k/uL (0-1.0); Monocytes % (A) 5 %; Neutrophils # (A) 3.2 k/uL (1.3-7.7); Neutrophils % (A) 65 %; Platelet Count 255 k/uL (150-450); WBC 4.9 k/uL (3.8-10.6)
[2024-03-07 07:04] LABS: Potassium 4.1 mmol/L (3.5-5.1)
[2024-03-07 07:05] LABS: ALT 19 U/L (4-49); AST 19 U/L (17-59); African American GFR (CKD) >90 (>60 ml/min/1.73 sqM); Albumin 2.8 g/dL (3.5-5.0); Alkaline Phosphatase 77 U/L (38-126); Anion Gap 0 mmol/L; Blood Urea Nitrogen 10 mg/dL (9-20); Calcium 8.2 mg/dL (8.4-10.2); Carbon Dioxide 27 mmol/L (22-30); Chloride 110 mmol/L (98-107); Glucose 117 mg/dL (74-99); Non-African American GFR(CKD) >90 (>60 ml/min/1.73 sqM); Phosphorus 2.4 mg/dL (2.5-4.5); Sodium 137 mmol/L (137-145); Total Bilirubin 0.5 mg/dL (0.2-1.3); Total Protein 6.9 g/dL (6.3-8.2)
--- NOTE | 2024-03-07 07:54 | XR ---
EXAMINATION TYPE: XR chest 1V portable DATE OF EXAM: 03/07/2024 4:27 AM COMPARISON: Chest radiograph from one day prior. CLINICAL INDICATION: Male, 48 years old with history of intubated; TECHNIQUE: XR chest 1V portable Frontal view of the chest. FINDINGS: Lungs/Pleura: There is no evidence of pleural effusion, focal consolidation, or pneumothorax. Pulmonary vascularity: Unremarkable. Heart/mediastinum: Cardiomediastinal silhouette is unremarkable. Musculoskeletal: No acute osseous pathology. Other findings: None Lines/Tubes: Tracheostomy cannula tip projecting over the trachea. Left internal jugular central venous catheter with distal tip at the cavoatrial junction. IMPRESSION: Stable exam [facility] Myesha Mora, , 03/07/2024 7:52 AM
[2024-03-07 11:27] LABS: Glucose,Whole Blood 113 mg/dL (70-110)
--- NOTE | 2024-03-07 12:40 | P.PN ---
Subjective Progress Note Date: 03/07/24 Patient is a 48-year-old male with complex past medical history including CVA, previous DVTs, right BKA, cardiac arrest in 2021, Crohn's disease, enterocutaneous fistulas, previous bowel resection, ventilator dependent respiratory failure, previous tracheostomy and reversal. Recently was admitted 12/13/2023 through 12/25/2023 for pneumonia and respiratory failure due to mucous plugging. He was intubated and placed on mechanical ventilator for approximately 6 days. He did have a bronchoscopy with BAL, microbiology positive for haemophilus influenza. Eventually, discharged home, and returned 01/02/24 for GIB from his ostomy. Was reintubated and did spend some time on the ventilator for reccurent pneumonia and mucous plugging. During this time, had multiple bronchoscopies with BAL, once on 12/31/2023 and again on 01/03/2024, isolated organisms including MRSA and Pseudomonas. Patient was eventually discharged back home on 01/16/2024. More recently, patient had an ER visit for increased work of breathing on February 22, and the patient was sent home. Returned for similar symptoms yesterday afternoon. Chest x-ray done on admission showing cardiomegaly with pulmonary vascular congestion and questionable right lower lobe infiltrate or effusion. CBC: WBC count 11.2, hemoglobin 10.5, hematocrit 37.3, platelets 315. CMP: Sodium 138, potassium 4.8, chloride 97, serum bicarb 39, BUN 23, creatinine 0.45, glucose 103. Lactic 1. LFTs unremarkable. Troponin less than 0.012. I am evaluating this patient emergency department, he is currently unresponsive, to even painful stimuli. He is on a 15 L nonrebreather. SpO2 88%. Diminished breath sounds on the right Will place this patient on BiPAP with initial settings 16/5 FiO2 to be titrated accordingly. Will get a stat ABG. We will repeat chest x-ray. I did talk to the patient's son, Alan, he is adamant that the patient remain a full code, would want the patient intubated if necessary. On reassessment in the emergency department, patient remained on BiPAP with settings 16/5 100%. He remains unresponsive to painful stimuli. Now only achieving tidal volumes ranging from 100 to 200 cc. Unfortunately, we were not able to to get an initial blood gas. I recommended that the patient be moved to the trauma bay and intubated by the FRONT [employer]. Follow-up chest x-ray showing the endotracheal tube in appropriate position above the avery. Orogastric tube coursing below the diaphragm. Initial ventilator settings include assist-co ntrol, respiratory rate 20, tidal volume 500, FiO2 100%, PEEP of 5. Currently, patient is fairly asynchronous with the ventilator and he is biting the tube. There are copious amounts of blood-tinged sputum in the ET tube. Elevated peak airway pressures of 45. Static pressure 32. The nurses are working on appropriately sedating the patient with propofol. Postintubation, the patient did become hypotensive, currently receiving his second liter of normal saline. Will also start the patient on norepinephrine to maintain a MAP of greater than 65 mmHg. I did insert a left femoral arterial line. Following this, we did obtain an ABG showing profound hypercapnic and hypoxic respiratory failure. PaO2 of 89, pCO2 98, pH of 7.11. Appropriate ventilator adjustments were made including increasing the rate to 26 and PEEP can be increased to 8. Patient may eventually need repeat bronchoscopy with BAL. Case will be discussed with Dr. Munoz. Patient is still waiting for a bed in the intensive care unit. I did call and update patient's son Alan about his change in clinical condition. 02/27/24 - Patient seen at bedside today, in the ICU. He is on day 3 of his hospital stay, admitted on 02/25/24 and in the ICU since 02/26/24. He remains mechanically ventilated intubated since 02/26/24. He remains on assist-control with a rate of 26, volume 500, FiO2 50% (down from 60%) and a PEEP of 8. ABG done today (on 60% FiO2) showed pO2 126, pCO2 35, pH is 7.50, indicating a mixed respiratory and metabolic alkalosis. Abnormality shown on the patient's lab this morning, inconsistent and drastic changes from previous labs. Will perform a redraw today to get a better idea on how the labs are changed. He remains on vasopressin 0.03 units/min, Levophed at 0.07 mcg/kg/min (6.8 mcg/min), propofol 75 mcg/kg/min, receiving TPN at 30 cc/h (which is goal). Patient's blood pressure today 131/53. Additionally, patient receiving cefepime and vancomycin secondary to leukocytosis and a Tmax on 02/26/24 of 100.5 F. Sputum culture currently pending. Chest x-ray from this morning showed improving right perihilar and lower lobe infiltrate. Additionally, patient is currently receiving TPN (Clinimix) at 30 cc/h which is goal for dietitian. 02/28/24 - Patient seen at bedside today, in the ICU. He is on day 4 of his hospital stay, admitted on 02/25/24 and in the ICU since 02/26/24. He remains intubated and mechanically ventilated since 02/26/24. He remains on assist- control with a rate of 25, [place] 500, FiO2 40% and PEEP of 8. ABG done today (while on 100% FiO2) showed pO2 255, pCO2 37, pH 7.44 indicating slight respiratory alkalosis. The abnormalities noted on the patient's labs from yesterday were rechecked on a couple of occasion and seem to be accurate. This morning labs showed WBC 5.2, hemoglobin 8.2, sodium 139, potassium 3.8, chloride 114, BUN 10, creatinine 0.44, calcium 8.2, phosphorus 2.6, magnesium 2.0. Patient received supplementation with sodium phosphate, potassium chloride and magnesium sulfate. He remains on Levophed 0.07 mcg/kg/min (7 mcg/min), propofol 75 mcg/kg/min, normal saline at 30 cc/h and TPN at 30 cc/h (which is goal). Additionally, patient remains on cefepime and vancomycin; sputum culture is final for Pseudomonas aeruginosa that any resistance. Blood cultures continue to be pending at this time. Chest x-ray from this morning continue show right lower lobe infiltrate. 02/29/24 - Patient seen at bedside today, in the ICU. He is on day 5 of his hospital stay, admitted on 02/25/24 and then the ICU since 02/26/24. He remains intubated mechanically ventilated since 02/26/24. He remains on assist-control with a rate of 26, volume 500, FiO2 50%, PEEP of 8. ABG completed today showed pO2 96, pCO2 30, pH 7.51 indicating a respiratory and metabolic alkalosis. On labs drawn today patient's WBC is 4.1, hemoglobin 8.0, sodium 138, chloride 114, potassium 3.9, BUN 13, creatinine 0.46, phosphorus 2.2, magnesium 1.9. Patient received 1 g magnesium sulfate this morning and 15 mmol sodium phosphate. He remains on propofol 75 mcg/mg/min, Levophed at 0.03 mcg/kg/min (~3 mcg/min) and TPN at 30 cc/h (which is goal). He remains on 0.9% normal saline at 20 cc/h, and cefepime 2 g every 8 hours. Blood cultures remain pending at this time. Chest x-ray shows more prominent small bilateral pleural effusions and associated bibasilar opacities. The patient is seen today March 01, 2024 in follow-up on the regular medical floor. He remains intubated on the mechanical ventilator and assist-control mode with a rate of 26, tidal volume 500, FiO2 50% and a PEEP of 8. Morning blood gases revealed a PaO2 111, pCO2 22 and a pH of 7.48. He is currently on propofol at 55 mcg/kg/min. Receiving TPN at 30 mL/h. Normal saline at KVO. He remains on cefepime for pseudomonal bronchial infection. White count 5.2. Hemoglobin 8.4. Platelets 184. Sodium 136. Potassium 3.5. Bicarb 20. BUN 13. Creatinine 0.53. Glucose 87. He is afebrile. Hemodynamically stable. Chest x-ray reveals persistent small bilateral effusions. He is continued on DuoNebs. Lovenox for DVT prophylaxis. On today's evaluation of 03/02/2024, the patient is being seen in follow-up in the intensive care unit. The patient remains intubated on the mechanical ventilator. The patient is sedated and currently propofol is running at 60 mcg/kg/min. He is calm and comfortable and synchronous with mechanical ventilator. No significant agitation. He is on assist-control mode of mechanical ventilation at rate of 26, tidal volume of 500, FiO2 of 60% with a PEEP of 8. Chest x-ray showing a component of pulm vessel congestion, atelectatic changes in lung bases and small bilateral pleural effusions. ET tube is around 5 cm above the avery. The blood gas showed a pH of 7.41 with a pCO2 of 34 and pO2 of 92 and there has been some improvement in his oxygenation over the past 24 hours. He remains NPO. He remains on TPN for nutritional support which is running at rate of 30 cc an hour. He has an ileostomy and output from the ileostomy is quite high and he has produced around 600 cc of output from his ileostomy over the past 8 hours. No signs of any active bleeding. Hemodynamically, the patient is on IV fluids at KVO. He is also on pressors and norepinephrine is running at a low dose of 0.02 mcg/kg/min. He is covered with broad-spectrum antibiotics and he is currently on IV cefepime. He did grow Pseudomonas in his sputum analysis and underlying pseudomonal infection/pneumonia cannot be completely excluded. In terms of his blood work from today, the patient has a white cell count of 6.3, hemoglobin 9.1. And a platelet count of 197. The rest of the electrolytes are all stable with a serum bicarb of 19, sodium of 138, potassium level 3.6, chloride 111, BUN is 14 with a creatinine of 0.5. He has ionized calcium level was at 4.9. His LFTs are essentially within normal limits. Total protein is at 6.7 with an albumin level of 2.8. Note that the patient was given a trial of extubation yesterday. Within 2 hours postextubation, the patient had to be reintubated because of increased work of breathing and hypoxic respiratory failure. As such, the patient has been kept intubated for now. The patient is arousable even while being on sedation and can follow some simple commands. On 03/03/2024, the patient is being seen for a follow-up. As mentioned earlier, the patient failed extubation on 03/01/2024 and the bronchoscopy was done on 03/02/2024 and it showed copious amount of mucous plugs and therapeutic airway suctioning was done. Repeat bronchoscopy was done today and similar abundant respiratory secretions and mucous plugs were identified although they were somewhat less compared to yesterday the total amount of aspirate was in the order of 15 to 20 cc of purulent material. As such, I am not seeing a immediate successful way of extubating this patient especially the patient has poor ability to perform pulmonary toileting and has a weak cough and has an underlying tracheal stenosis with ongoing pneumonia. Based on that, I made recommendations for insertion of a tracheostomy tube. Meanwhile, this morning, the patient remains on the mechanical ventilator. He is on assist-control mode at a rate of 26 with a tidal volume of 500 and FiO2 of 50% with a PEEP of 6. The blood gases were not obtained today. Chest x-ray findings are stable and the patient has some slight improvement in the bibasilar pulmonary opacities seen earlier. Blood work from today shows a WBC count of 6 with a hemoglobin 9.6 and a platelet count of 216. BUN is 10 with a creatinine of 0.4 and a sodium levels at 138. The patient remains on TPN for nutritional support and the patient is on TPN at rate of 30 cc an hour. He remains on low-dose norepinephrine at 0.05 mcg/kg/min and the patient remains on propofol running at 60 mcg/kg/min and the patient is arousable even while being on sedation. No other significant events overnight. On 03/04/2024, the patient is being seen for a follow-up. Awake and arousable despite being on propofol at 60 mcg/kg/min. Remains on mechanical ventilator, assist-control mode rate of 16, tidal volume of 500, FiO2 of 50% with a PEEP of 6. Unable to obtain blood gas. Will monitor saturation and end-tidal CO2. Remains on norepinephrine at 0.04 mcg/kg/min. The ostomy output is in the order of 600 to 700 cc every 8 hours. Remains on TPN for nutritional support at a rate of 30 cc. The BUN is 9 with a creatinine of 0.44. Serum bicarb is at 19 and a sodium levels at 137. The white cell count of 5 with a hemoglobin of 9.0. The bronchioloalveolar lavage that was collected earlier showing again gram- negative bacillus, awaiting final cultures and the patient remains on IV cefepime. General surgery is on the case and the patient is going to undergo a tracheostomy tube insertion tomorrow for ongoing respiratory support as the patient may not be able to wean successfully for the reasons mentioned earlier. On 03/05/2024, the patient is awaiting a tracheostomy tube insertion. He is relatively awake while being on propofol at 60 mcg/kg/min. He remains on assist-control mode rate of 16, tidal volume of 500, FiO2 50% with a PEEP of 6. No blood gases. Chest x-ray findings are stable. He remains on TPN for nutritional support at rate of 30 cc an hour. Ileostomy output is quite high in the order of 700 cc every 8 hours. He remains on low-dose norepinephrine which is running at 0.03 mcg/kg/min.Meanwhile, the white cell count is at 4.2 with a hemoglobin 9.3 and a platelet count of 227. BUN is 10 with a creatinine of 0.4 and a sodium levels at 137 and a potassium level of 3.9. Remains off Lovenox in preparation for his tracheostomy tube. No other significant events overnight. No significant orotracheal secretions. The most recent bronchioloalveolar lavage that was done on 03/02/2024 was consistent with Pseudomonas aeruginosa, resistant to cefepime and resistant to Fortaz. Nevertheless, it has been sensitive to Zosyn. The patient remains on IV Zosyn for now. On 03/06/2024, patient is being seen for a follow-up. The patient underwent a t racheostomy tube insertion and yesterday and the patient has a Shiley tracheostomy tube in place. The cuff is filled with saline due to leaks. Meanwhile, the patient remains on the mechanical ventilator. Propofol has been weaned down to 20 mcg/kg/min. This morning, he is on assist-control rate of 16 tidal volume of 500, FiO2 of 50% with a PEEP of 6 and a chest x-ray shows no acute changes. Tracheostomy tube is in good location. Some limited atelectatic changes in lung bases are seen bilaterally. No significant respiratory secretions. Most recent sputum sample was again positive for Pseudomonas aeruginosa and the patient is currently on IV Zosyn based on the sensitivities. Meanwhile, the patient continues to have increased output through his ileostomy in the order of 450 cc over the past 8 hours. NG tube is also in place and the patient has produced 100 cc over the past 8 hours. Norepinephrine is running at 0.05 mcg/kg/min and TPN needs to be adjusted as the patient is being weaned off the propofol. Currently TPN is running. 30 cc an hour. The white cell count of 4.9, hemoglobin is 9.1 and a platelet count of 258. Electrolytes are all stable. Potassium level is at 3.8 and needs to be replaced. BUN 13 with a creatinine of 0.4. Blood sugar is at 127. The patient is arousable and following simple commands and answering questions appropriately while being on the mechanical ventilator. On 03/07/2024, the patient is awake and alert and the patient is currently off propofol. The patient is still on the mechanical ventilator assist-control mode rate of 16, tidal volume of 500, FiO2 50% with a PEEP of 6. Calm and comfortable and breathing comfortable. No significant secretions through the tracheostomy tube. Remains on IV Zosyn. He does have pseudomonal pneumonia for which she is on IV Zosyn based on antibiotic sensitivities. Remains on TPN and this was increased up to 60 cc an hour. Remains on anticoagulation with Lovenox 80 mg subcu every 12 hours. Ileostomy is still active and the patient is producing approximately 1000 cc of gastric output over the past 8 hours. Fluid balance -600 cc over the past 24 hours. White cell count is at 4.9 with a hemoglobin 8.8 and a platelet count of 255. BUN is 10 with a creatinine of 0.4 and the sodium is at 137 and a potassium level is at 4.1. Awake and alert and communicating. Profound weakness of lower extremities along with significant muscle atrophy. Objective - Vital Signs Vital signs: Vital Signs Temp 98.3 F 03/07/24 04:00 Pulse 74 03/07/24 08:15 Resp 21 03/07/24 08:15 BP 103/51 03/07/24 08:15 Pulse Ox 99 03/07/24 08:15 FiO2 50 03/07/24 08:00 Intake & Output 03/06/24 03/07/24 03/07/24 18:59 06:59 18:59 Intake Total 979.358 2272.539 Output Total 610 1535 Balance -176.453 -343.461 Weight 93.9 kg Intake: IV 330 440 KVO 230 240 Piperacillin-Tazobactam 3 100 200 .375 gm In Sodium Chloride 0.9% 100 ml @ 25 mls/hr IVPB Q8H ANNIE Rx#: [id number] Intake, IV Titration 103.547 751.539 Amount Mvi, Adult No.4 with Vit 720 K 10 ml Trace (Conc-1Ml/ Dose) 1 ml Sodium Acetate 40 meq Potassium Acetate 50 meq Calcium Gluconate 1 gm Magnesium Sulfate gm 1 gm Potassium Phosphate 21 mmol In Amino Acids 5 %/Dextrose 20 % 1,000 ml @ 60 mls/hr IV .[id number] ANNIE Rx#: [id number] Norepinephrine 32 mg In 24.771 31.539 Sodium Chloride 0.9% 218 ml @ 0.08 MCG/KG/MIN 3. 653 mls/hr IV .Q24H [facility] Rx#:[id number] propofoL 1,000 mg In 78.776 Empty Bag 1 bag @ 15 MCG/ KG/MIN 8.573 mls/hr IV . [id number] ANNIE Rx#:[id number] Output: Drainage 400 Mid Abdomen 400 Urine 610 535 Stool 600 Other: Voiding Method Indwelling Catheter Indwelling Catheter ABP, PAP, CO, CI - Last Documented Arterial Blood Pressure 91/88 - Exam GENERAL: A 48-year-old male patient, currently has a tracheostomy tube and still attached to the mechanical ventilator, off propofol Head exam was generally normal. There was no scleral icterus or corneal arcus. Mucous membranes were moist. HEENT: No scleral icterus. No conjunctival pallor. Normocephalic, atraumatic. CARDIOVASCULAR: S1 and S2 present. No murmurs, rubs, or gallops. PULMONARY: Diminished breath sounds were bilaterally. No wheezes rhonchi or crackles ABDOMEN: Soft, nontender, nondistended, normoactive bowel sounds. No palpable organomegaly. Functioning ileostomy. 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 EXTREMITIES: No cyanosis, clubbing, or pedal edema. NEUROLOGICAL: Profound weakness in all 4 extremities, weak cough, extensive muscle atrophy in all 4 extremities. Arousable and awake and follows simple commands and communicates. Off sedation SKIN: No rashes. Left chest PICC line. - Labs CBC & Chem 7: 03/07/24 05:55 03/07/24 05:55 Labs: Abnormal Lab Results - Last 24 Hours (Table) 03/06/24 03/06/24 03/07/24 Range/Units 12:32 17:05 00:31 RBC (4.30-5.90) m/uL Hgb (13.0-17.5) gm/dL Hct (39.0-53.0) % MCHC (31.0-37.0) g/dL RDW (11.5-15.5) % Chloride (98-107) mmol/L Creatinine (0.66-1.25) mg/dL Glucose (74-99) mg/dL POC Glucose (mg/dL) 127 H 136 H 134 H (70-110) mg/dL Calcium (8.4-10.2) mg/dL Phosphorus (2.5-4.5) mg/dL Albumin (3.5-5.0) g/dL 03/07/24 03/07/24 03/07/24 Range/Units 05:29 05:55 05:55 RBC 3.40 L (4.30-5.90) m/uL Hgb 8.8 L (13.0-17.5) gm/dL Hct 30.1 L (39.0-53.0) % MCHC 29.2 L (31.0-37.0) g/dL RDW 17.0 H (11.5-15.5) % Chloride 110 H (98-107) mmol/L Creatinine 0.40 L (0.66-1.25) mg/dL Glucose 117 H (74-99) mg/dL POC Glucose (mg/dL) 116 H (70-110) mg/dL Calcium 8.2 L (8.4-10.2) mg/dL Phosphorus 2.4 L (2.5-4.5) mg/dL Albumin 2.8 L (3.5-5.0) g/dL Assessment and Plan Plan: Acute hypoxic and hypercapnic respiratory failure, requiring mechanical intubation on 02/26/24. The patient is known to have chronic respiratory insufficiency as the patient has poor ability to perform pulmonary toileting, weak cough, and has had recurrent pneumonias with gram-negative and MRSA. Most recent sputum sample from 02/26/2024 is positive for Pseudomonas aeruginosa and the patient is currently on IV cefepime. Patient failed BiPAP therapy during this current admission the patient had to be intubated and placed on the mechanical ventilator on 02/26/2024. The patient was given a trial of extubation on 03/01/2024 and within 2 hours of extubation he had to be reintubated for increased work of breathing and hypoxic respiratory failure. Bronchoscopy was done on 03/02/2024 and 03/03/2024 revealed copious amount of purulent respiratory secretions and mucous plugs which probably contributing to his ongoing respiratory failure. The patient has poor ability to cough and perform pulmonary toileting and clear his respiratory secretions. 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 The bronchoalveolar lavage is showing Pseudomonas aeruginosa and the sensitivities were noted and the patient remains on IV Zosyn. . The patient is status post tracheostomy tube insertion on 03/05/2024. Remains on a mechanical ventilator. Tracheal stenosis at the site of the previously inserted tracheostomy tube, visualized on most recent bronchoscopy Previous history of recurrent ventilator dependent respiratory failure, secondary to pneumonia and mucous plugging. The patient has undergone previous bronchoscopies and cultures from bronchoscopy on 12/31/2023 was positive for MRSA and subsequent bronchoscopy on 01/03/2024 was positive for Klebsiella pneumoniae and Bella glabrata. Most recent sputum analysis from 02/26/2024 was positive for Pseudomonas aeruginosa and the patient is currently on IV cefepime. Repeat bronchioloalveolar lavage from 03/02/2024 is positive for Pseudomonas aeruginosa. Sepsis secondary to above, recurrent pneumonia, currently low-dose norepinephrine Leukocytosis, resolved Crohn's disease, with previous complication of bowel perforation s/p colectomy and diverting ileostomy. The patient also has had previous history of abdominal wall bleeding there is currently inactive and stable. The patient has a high output ileostomy TPN for nutritional support Electrolyte imbalance at time of admission including hyponatremia, hypokalemia, hypophosphatemia, hypomagnesemia and hyperphosphatemia, all resolved Tracheobronchomalacia History of DVT, on therapeutic dose of Lovenox CVA/TIA, with residual left-sided weakness Right BKA History of asystole/cardiac arrest in 2021 Plan: Discontinue the vent and put the patient on trach collar Deflate the cuff Patient is off propofol Wean off norepinephrine and discontinue Discontinue the NG tube Will start breathing trials on this patient once he is fully off sedation Continue IV Zosyn at the patient's most recent bronchioloalveolar lavage that wa s done on 03/02/2024 showed persistent Pseudomonas aeruginosa Chest x-ray findings are stable TPN for nutritional support, rate has been adjusted Lovenox for anticoagulation Continue bronchodilators Will continue to follow make further recommendations based on his progress. Critical care evaluation that was done more than 30 minutes. Time with Patient: Greater than 30
--- NOTE | 2024-03-07 16:17 | P.PN ---
Subjective Progress Note Date: 03/07/24 48-year-old male who presented to the emergency department with increased shortness of breath and hypoxia with concerns of possible pneumonia. Patient was placed on nonrebreather and ultimately required BiPAP as patient chronically wears oxygen outpatient and became more obtunded and unresponsive requiring mechanical ventilation and was admitted to the ICU with hypoxia and concerns for pneumonia. Patient follows with Dr. Ivey in the outpatient setting with a significant past medical history of CVA, DVT, Crohn's, previous MRSA infections, right BKA and multiple hospitalizations. Patient is maintained on TPN outpatient for his chronic malnutrition secondary to Crohn's and was most recently hospitalized earlier this year requiring ICU admission and mechanical ventilation with continuous mucous plugging requiring multiple bronchoscopies. Blood pressures are also low requiring pressor support. Antibiotics were started with concerns of pneumonia. Procalcitonin ordered. Recommend infectio us disease evaluation and appreciate input and recommendations as well. Objective - Vital Signs Vital signs: Vital Signs Temp 98.3 F 03/07/24 04:00 Pulse 81 03/07/24 11:16 Resp 18 03/07/24 11:15 BP 152/67 03/07/24 11:15 Pulse Ox 99 03/07/24 11:15 FiO2 60 03/07/24 09:31 Intake & Output 03/06/24 03/07/24 03/07/24 18:59 06:59 18:59 Intake Total 957.201 4696.539 149.921 Output Total 610 1535 235 Balance -176.453 -343.461 -85.079 Weight 93.9 kg Intake: IV 330 440 80 KVO 230 240 80 Piperacillin-Tazobactam 3 100 200 .375 gm In Sodium Chloride 0.9% 100 ml @ 25 mls/hr IVPB Q8H ANNIE Rx#: [id number] Intake, IV Titration 103.547 751.539 69.921 Amount Mvi, Adult No.4 with Vit 720 60 K 10 ml Trace (Conc-1Ml/ Dose) 1 ml Sodium Acetate 40 meq Potassium Acetate 50 meq Calcium Gluconate 1 gm Magnesium Sulfate gm 1 gm Potassium Phosphate 21 mmol In Amino Acids 5 %/Dextrose 20 % 1,000 ml @ 60 mls/hr IV .[id number] ANNIE Rx#: [id number] Norepinephrine 32 mg In 24.771 31.539 9.921 Sodium Chloride 0.9% 218 ml @ 0.08 MCG/KG/MIN 3. 653 mls/hr IV .Q24H ANNIE Rx#:[id number] propofoL 1,000 mg In 78.776 Empty Bag 1 bag @ 15 MCG/ KG/MIN 8.573 mls/hr IV . [id number] ANNIE Rx#:[id number] Output: Drainage 400 Mid Abdomen 400 Urine 610 535 235 Stool 600 Other: Voiding Method Indwelling Catheter Indwelling Catheter Indwelling Catheter ABP, PAP, CO, CI - Last Documented Arterial Blood Pressure 91/88 - Exam GENERAL: The patient is currently on mechanical ventilation with an FiO2 of 50%, PEEP is 5. Well developed, appears older than stated age, ill-appearing, obese HEENT: Pupils are round and equally reacting to light. EOMI. No scleral icterus. No conjunctival pallor. Normocephalic, atraumatic. No pharyngeal erythema. No thyromegaly. CARDIOVASCULAR: S1 and S2 muffled, PULMONARY: Diminished breath sounds bilaterally with ventilator assist breathing, some bronchial congestion noted ABDOMEN: Soft, nontender, nondistended, normoactive bowel sounds. No palpable organomegaly. Ostomy noted MUSCULOSKELETAL: No joint swelling or deformity. EXTREMITIES: No cyanosis, clubbing, or pedal edema. Right BKA noted, diffusely weak currently on sedation NEUROLOGICAL: Gross neurological examination did not reveal any focal deficits. Unable to completely assess as patient is sedated SKIN: No rashes. - Labs CBC & Chem 7: 03/07/24 05:55 03/07/24 05:55 Labs: Abnormal Lab Results - Last 24 Hours (Table) 03/06/24 03/06/24 03/07/24 Range/Units 12:32 17:05 00:31 RBC (4.30-5.90) m/uL Hgb (13.0-17.5) gm/dL Hct (39.0-53.0) % MCHC (31.0-37.0) g/dL RDW (11.5-15.5) % Chloride (98-107) mmol/L Creatinine (0.66-1.25) mg/dL Glucose (74-99) mg/dL POC Glucose (mg/dL) 127 H 136 H 134 H (70-110) mg/dL Calcium (8.4-10.2) mg/dL Phosphorus (2.5-4.5) mg/dL Albumin (3.5-5.0) g/dL 03/07/24 03/07/24 03/07/24 Range/Units 05:29 05:55 05:55 RBC 3.40 L (4.30-5.90) m/uL Hgb 8.8 L (13.0-17.5) gm/dL Hct 30.1 L (39.0-53.0) % MCHC 29.2 L (31.0-37.0) g/dL RDW 17.0 H (11.5-15.5) % Chloride 110 H (98-107) mmol/L Creatinine 0.40 L (0.66-1.25) mg/dL Glucose 117 H (74-99) mg/dL POC Glucose (mg/dL) 116 H (70-110) mg/dL Calcium 8.2 L (8.4-10.2) mg/dL Phosphorus 2.4 L (2.5-4.5) mg/dL Albumin 2.8 L (3.5-5.0) g/dL Assessment and Plan Assessment: Shortness of breath, acute hypoxic respiratory failure requiring mechanical ventilation, likely secondary to recurrent mucous plugging with concerns of possible right lower lobe pneumonia Possible right lower lobe pneumonia, present on admission versus recurrent mucous plugging with atelectasis, procalcitonin is 0.63 Electrolyte abnormalities including low phosphorus and low potassium, being replaced per protocol Sepsis, present on admission secondary to above History of tracheobronchomalacia History of anemia History of CVA History of DVT and right BKA History of Crohn's disease with previous bowel perforation with colectomy and end ileostomy with chronic wounds with enterocutaneous fistulas Severe protein calorie malnutrition secondary to Crohn's and maintained on TPN outpatient History of previous tracheostomy with tracheal stenosis History of previous cardiac arrest in 2021 History of MRSA previously Former smoker Obesity with a BMI of 30.8 GI prophylaxis DVT prophylaxis Full code Plan: Patient continues in the ICU on mechanical ventilation FiO2 has been reduced to 50% with a PEEP of 5 Antibiotics have been started with concerns of pneumonia and procalcitonin is mildly elevated at 0.63. Infectious disease following and patient is continued on cefepime Recommend frequent suctioning per pulmonary classifications officer cc/cm and monitor respiratory status closely for any further mucous plugging. Patient was recently hospitalized in the ICU for quite some time and underwent multiple bronchoscopi es Continue local wound care and also consult ostomy nurse Follow-up on repeat labs and replace electrolytes per protocol Cardiology following with no acute changes in medications recommend to continue with telemetry monitoring Continue dietary and pharmacy to adjust TPN Due to multiple complex medical issues, overall prognosis is guarded
[2024-03-07 17:44] LABS: Glucose,Whole Blood 119 mg/dL (70-110)
[2024-03-07 23:39] LABS: Glucose,Whole Blood 114 mg/dL (70-110)
[2024-03-08 05:55] LABS: Anisocytosis Slight; Basophils % (A) 1 %; Eosinophils # (A) 0.3 k/uL (0-0.7); Eosinophils % (A) 5 %; HCT 31.7 % (39.0-53.0); HGB 9.3 gm/dL (13.0-17.5); Hypochromasia Marked; Lymphocytes # (A) 1.5 k/uL (1.0-4.8); Lymphocytes % (A) 31 %; MCHC 29.4 g/dL (31.0-37.0); MCV 88.4 fL (80.0-100.0); Mean Platelet Volume 8.7; Monocytes # (A) 0.2 k/uL (0-1.0); Monocytes % (A) 3 %; Neutrophils # (A) 2.8 k/uL (1.3-7.7); Neutrophils % (A) 57 %; Platelet Count 236 k/uL (150-450); RBC 3.58 m/uL (4.30-5.90); RDW 16.8 % (11.5-15.5)
[2024-03-08 06:09] LABS: African American GFR (CKD) >90 (>60 ml/min/1.73 sqM); Anion Gap -1 mmol/L; Blood Urea Nitrogen 8 mg/dL (9-20); Calcium 8.5 mg/dL (8.4-10.2); Carbon Dioxide 33 mmol/L (22-30); Chloride 105 mmol/L (98-107); Glucose 96 mg/dL (74-99); Magnesium 1.9 mg/dL (1.6-2.3); Non-African American GFR(CKD) >90 (>60 ml/min/1.73 sqM); Phosphorus 2.3 mg/dL (2.5-4.5); Potassium 4.4 mmol/L (3.5-5.1); Sodium 137 mmol/L (137-145)
[2024-03-08 06:12] LABS: Glucose,Whole Blood 103 mg/dL (70-110)
--- NOTE | 2024-03-08 06:42 | XR ---
EXAMINATION TYPE: XR chest 1V portable DATE OF EXAM: 03/08/2024 COMPARISON: 03/07/2024 CLINICAL INDICATION: Male, 48 years old with history of asses lungs; TECHNIQUE: Single frontal view of the chest is obtained. FINDINGS: No change in the tracheostomy tube or left jugular central venous catheter the tip of which is in the SVC/RA junction. Interval worsening in the diffuse interstitial opacity consistent with pulmonary vascular congestion and probable interstitial edema. There is persistent [id number] elevation right hemidiaphragm. The heart size is prominent. There is no pneumothorax. The osseous structures are grossly intact. IMPRESSION: Mild to moderate interval worsening in the acute cardiopulmonary process likely CHF or excessive flui d volume. [facility], , 03/08/2024 6:40 AM
--- NOTE | 2024-03-08 08:27 | P.PN ---
Progress Note - Text Progress Note Date: 03/08/24 CHIEF COMPLAINT: Respiratory failure HISTORY OF PRESENT ILLNESS: Patient is POD#3 Tracheostomy Placement. No acute events overnight. There are no issues with tracheostomy. There are no significant secretions from the tracheostomy. PHYSICAL EXAM: VITAL SIGNS: Reviewed. GENERAL: no acute distress. HEENT: Tracheostomy site clean, dry, and intact. ASSESSMENT: 1. POD #3 Tracheostomy 2. Acute hypoxic and hypercapnic respiratory failure. 3. Tracheal stenosis. Prior history of tracheostomy PLAN: -Continue supportive care -Continue ICU management George Montiel DO [facility] [phone]
[2024-03-08] MEDS: NOREPINEPHRINE 4 MG in SODIUM CHLORIDE 0.9% 250 ML IV SCH (08:57)
[2024-03-08 11:27] LABS: Glucose,Whole Blood 105 mg/dL (70-110)
--- NOTE | 2024-03-08 11:35 | P.PN ---
Subjective Progress Note Date: 03/08/24 Patient is a 48-year-old male with complex past medical history including CVA, previous DVTs, right BKA, cardiac arrest in 2021, Crohn's disease, enterocutaneous fistulas, previous bowel resection, ventilator dependent respiratory failure, previous tracheostomy and reversal. Recently was admitted 12/13/2023 through 12/25/2023 for pneumonia and respiratory failure due to mucous plugging. He was intubated and placed on mechanical ventilator for approximately 6 days. He did have a bronchoscopy with BAL, microbiology positive for haemophilus influenza. Eventually, discharged home, and returned 01/02/24 for GIB from his ostomy. Was reintubated and did spend some time on the ventilator for reccurent pneumonia and mucous plugging. During this time, had multiple bronchoscopies with BAL, once on 12/31/2023 and again on 01/03/2024, isolated organisms including MRSA and Pseudomonas. Patient was eventually discharged back home on 01/16/2024. More recently, patient had an ER visit for increased work of breathing on February 22, and the patient was sent home. Returned for similar symptoms yesterday afternoon. Chest x-ray done on admission showing cardiomegaly with pulmonary vascular congestion and questionable right lower lobe infiltrate or effusion. CBC: WBC count 11.2, hemoglobin 10.5, hematocrit 37.3, platelets 315. CMP: Sodium 138, potassium 4.8, chloride 97, serum bicarb 39, BUN 23, creatinine 0.45, glucose 103. Lactic 1. LFTs unremarkable. Troponin less than 0.012. I am evaluating this patient emergency department, he is currently unresponsive, to even painful stimuli. He is on a 15 L nonrebreather. SpO2 88%. Diminished breath sounds on the right Will place this patient on BiPAP with initial settings 16/5 FiO2 to be titrated accordingly. Will get a stat ABG. We will repeat chest x-ray. I did talk to the patient's son, Alan, he is adamant that the patient remain a full code, would want the patient intubated if necessary. On reassessment in the emergency department, patient remained on BiPAP with settings 16/5 100%. He remains unresponsive to painful stimuli. Now only achieving tidal volumes ranging from 100 to 200 cc. Unfortunately, we were not able to to get an initial blood gas. I recommended that the patient be moved to the trauma bay and intubated by the LIBRARIAN. Follow-up chest x-ray showing the endotracheal tube in appropriate position above the avery. Orogastric tube coursing below the diaphragm. Initial ventilator settings include assist-co ntrol, respiratory rate 20, tidal volume 500, FiO2 100%, PEEP of 5. Currently, patient is fairly asynchronous with the ventilator and he is biting the tube. There are copious amounts of blood-tinged sputum in the ET tube. Elevated peak airway pressures of 45. Static pressure 32. The nurses are working on appropriately sedating the patient with propofol. Postintubation, the patient did become hypotensive, currently receiving his second liter of normal saline. Will also start the patient on norepinephrine to maintain a MAP of greater than 65 mmHg. I did insert a left femoral arterial line. Following this, we did obtain an ABG showing profound hypercapnic and hypoxic respiratory failure. PaO2 of 89, pCO2 98, pH of 7.11. Appropriate ventilator adjustments were made including increasing the rate to 26 and PEEP can be increased to 8. Patient may eventually need repeat bronchoscopy with BAL. Case will be discussed with Dr. Munoz. Patient is still waiting for a bed in the intensive care unit. I did call and update patient's son Alan about his change in clinical condition. 02/27/24 - Patient seen at bedside today, in the ICU. He is on day 3 of his hospital stay, admitted on 02/25/24 and in the ICU since 02/26/24. He remains mechanically ventilated intubated since 02/26/24. He remains on assist-control with a rate of 26, volume 500, FiO2 50% (down from 60%) and a PEEP of 8. ABG done today (on 60% FiO2) showed pO2 126, pCO2 35, pH is 7.50, indicating a mixed respiratory and metabolic alkalosis. Abnormality shown on the patient's lab this morning, inconsistent and drastic changes from previous labs. Will perform a redraw today to get a better idea on how the labs are changed. He remains on vasopressin 0.03 units/min, Levophed at 0.07 mcg/kg/min (6.8 mcg/min), propofol 75 mcg/kg/min, receiving TPN at 30 cc/h (which is goal). Patient's blood pressure today 131/53. Additionally, patient receiving cefepime and vancomycin secondary to leukocytosis and a Tmax on 02/26/24 of 100.5 F. Sputum culture currently pending. Chest x-ray from this morning showed improving right perihilar and lower lobe infiltrate. Additionally, patient is currently receiving TPN ([employer]inimix) at 30 cc/h which is goal for dietitian. 02/28/24 - Patient seen at bedside today, in the ICU. He is on day 4 of his hospital stay, admitted on 02/25/24 and in the ICU since 02/26/24. He remains intubated and mechanically ventilated since 02/26/24. He remains on assist- control with a rate of 25, [place] 500, FiO2 40% and PEEP of 8. ABG done today (while on 100% FiO2) showed pO2 255, pCO2 37, pH 7.44 indicating slight respiratory alkalosis. The abnormalities noted on the patient's labs from yesterday were rechecked on a couple of occasion and seem to be accurate. This morning labs showed WBC 5.2, hemoglobin 8.2, sodium 139, potassium 3.8, chloride 114, BUN 10, creatinine 0.44, calcium 8.2, phosphorus 2.6, magnesium 2.0. Patient received supplementation with sodium phosphate, potassium chloride and magnesium sulfate. He remains on Levophed 0.07 mcg/kg/min (7 mcg/min), propofol 75 mcg/kg/min, normal saline at 30 cc/h and TPN at 30 cc/h (which is goal). Additionally, patient remains on cefepime and vancomycin; sputum culture is final for Pseudomonas aeruginosa that any resistance. Blood cultures continue to be pending at this time. Chest x-ray from this morning continue show right lower lobe infiltrate. 02/29/24 - Patient seen at bedside today, in the ICU. He is on day 5 of his hospital stay, admitted on 02/25/24 and then the ICU since 02/26/24. He remains intubated mechanically ventilated since 02/26/24. He remains on assist-control with a rate of 26, volume 500, FiO2 50%, PEEP of 8. ABG completed today showed pO2 96, pCO2 30, pH 7.51 indicating a respiratory and metabolic alkalosis. On labs drawn today patient's WBC is 4.1, hemoglobin 8.0, sodium 138, chloride 114, potassium 3.9, BUN 13, creatinine 0.46, phosphorus 2.2, magnesium 1.9. Patient received 1 g magnesium sulfate this morning and 15 mmol sodium phosphate. He remains on propofol 75 mcg/mg/min, Levophed at 0.03 mcg/kg/min (~3 mcg/min) and TPN at 30 cc/h (which is goal). He remains on 0.9% normal saline at 20 cc/h, and cefepime 2 g every 8 hours. Blood cultures remain pending at this time. Chest x-ray shows more prominent small bilateral pleural effusions and associated bibasilar opacities. The patient is seen today March 01, 2024 in follow-up on the regular medical floor. He remains intubated on the mechanical ventilator and assist-control mode with a rate of 26, tidal volume 500, FiO2 50% and a PEEP of 8. Morning blood gases revealed a PaO2 111, pCO2 22 and a pH of 7.48. He is currently on propofol at 55 mcg/kg/min. Receiving TPN at 30 mL/h. Normal saline at KVO. He remains on cefepime for pseudomonal bronchial infection. White count 5.2. Hemoglobin 8.4. Platelets 184. Sodium 136. Potassium 3.5. Bicarb 20. BUN 13. Creatinine 0.53. Glucose 87. He is afebrile. Hemodynamically stable. Chest x-ray reveals persistent small bilateral effusions. He is continued on DuoNebs. Lovenox for DVT prophylaxis. On today's evaluation of 03/02/2024, the patient is being seen in follow-up in the intensive care unit. The patient remains intubated on the mechanical ventilator. The patient is sedated and currently propofol is running at 60 mcg/kg/min. He is calm and comfortable and synchronous with mechanical ventilator. No significant agitation. He is on assist-control mode of mechanical ventilation at rate of 26, tidal volume of 500, FiO2 of 60% with a PEEP of 8. Chest x-ray showing a component of pulm vessel congestion, atelectatic changes in lung bases and small bilateral pleural effusions. ET tube is around 5 cm above the avery. The blood gas showed a pH of 7.41 with a pCO2 of 34 and pO2 of 92 and there has been some improvement in his oxygenation over the past 24 hours. He remains NPO. He remains on TPN for nutritional support which is running at rate of 30 cc an hour. He has an ileostomy and output from the ileostomy is quite high and he has produced around 600 cc of output from his ileostomy over the past 8 hours. No signs of any active bleeding. Hemodynamically, the patient is on IV fluids at KVO. He is also on pressors and norepinephrine is running at a low dose of 0.02 mcg/kg/min. He is covered with broad-spectrum antibiotics and he is currently on IV cefepime. He did grow Pseudomonas in his sputum analysis and underlying pseudomonal infection/pneumonia cannot be completely excluded. In terms of his blood work from today, the patient has a white cell count of 6.3, hemoglobin 9.1. And a platelet count of 197. The rest of the electrolytes are all stable with a serum bicarb of 19, sodium of 138, potassium level 3.6, chloride 111, BUN is 14 with a creatinine of 0.5. He has ionized calcium level was at 4.9. His LFTs are essentially within normal limits. Total protein is at 6.7 with an albumin level of 2.8. Note that the patient was given a trial of extubation yesterday. Within 2 hours postextubation, the patient had to be reintubated because of increased work of breathing and hypoxic respiratory failure. As such, the patient has been kept intubated for now. The patient is arousable even while being on sedation and can follow some simple commands. On 03/03/2024, the patient is being seen for a follow-up. As mentioned earlier, the patient failed extubation on 03/01/2024 and the bronchoscopy was done on 03/02/2024 and it showed copious amount of mucous plugs and therapeutic airway suctioning was done. Repeat bronchoscopy was done today and similar abundant respiratory secretions and mucous plugs were identified although they were somewhat less compared to yesterday the total amount of aspirate was in the order of 15 to 20 cc of purulent material. As such, I am not seeing a immediate successful way of extubating this patient especially the patient has poor ability to perform pulmonary toileting and has a weak cough and has an underlying tracheal stenosis with ongoing pneumonia. Based on that, I made recommendations for insertion of a tracheostomy tube. Meanwhile, this morning, the patient remains on the mechanical ventilator. He is on assist-control mode at a rate of 26 with a tidal volume of 500 and FiO2 of 50% with a PEEP of 6. The blood gases were not obtained today. Chest x-ray findings are stable and the patient has some slight improvement in the bibasilar pulmonary opacities seen earlier. Blood work from today shows a WBC count of 6 with a hemoglobin 9.6 and a platelet count of 216. BUN is 10 with a creatinine of 0.4 and a sodium levels at 138. The patient remains on TPN for nutritional support and the patient is on TPN at rate of 30 cc an hour. He remains on low-dose norepinephrine at 0.05 mcg/kg/min and the patient remains on propofol running at 60 mcg/kg/min and the patient is arousable even while being on sedation. No other significant events overnight. On 03/04/2024, the patient is being seen for a follow-up. Awake and arousable despite being on propofol at 60 mcg/kg/min. Remains on mechanical ventilator, assist-control mode rate of 16, tidal volume of 500, FiO2 of 50% with a PEEP of 6. Unable to obtain blood gas. Will monitor saturation and end-tidal CO2. Remains on norepinephrine at 0.04 mcg/kg/min. The ostomy output is in the order of 600 to 700 cc every 8 hours. Remains on TPN for nutritional support at a rate of 30 cc. The BUN is 9 with a creatinine of 0.44. Serum bicarb is at 19 and a sodium levels at 137. The white cell count of 5 with a hemoglobin of 9.0. The bronchioloalveolar lavage that was collected earlier showing again gram- negative bacillus, awaiting final cultures and the patient remains on IV cefepime. General surgery is on the case and the patient is going to undergo a tracheostomy tube insertion tomorrow for ongoing respiratory support as the patient may not be able to wean successfully for the reasons mentioned earlier. On 03/05/2024, the patient is awaiting a tracheostomy tube insertion. He is relatively awake while being on propofol at 60 mcg/kg/min. He remains on assist-control mode rate of 16, tidal volume of 500, FiO2 50% with a PEEP of 6. No blood gases. Chest x-ray findings are stable. He remains on TPN for nutritional support at rate of 30 cc an hour. Ileostomy output is quite high in the order of 700 cc every 8 hours. He remains on low-dose norepinephrine which is running at 0.03 mcg/kg/min.Meanwhile, the white cell count is at 4.2 with a hemoglobin 9.3 and a platelet count of 227. BUN is 10 with a creatinine of 0.4 and a sodium levels at 137 and a potassium level of 3.9. Remains off Lovenox in preparation for his tracheostomy tube. No other significant events overnight. No significant orotracheal secretions. The most recent bronchioloalveolar lavage that was done on 03/02/2024 was consistent with Pseudomonas aeruginosa, resistant to cefepime and resistant to Fortaz. Nevertheless, it has been sensitive to Zosyn. The patient remains on IV Zosyn for now. On 03/06/2024, patient is being seen for a follow-up. The patient underwent a t racheostomy tube insertion and yesterday and the patient has a Shiley tracheostomy tube in place. The cuff is filled with saline due to leaks. Meanwhile, the patient remains on the mechanical ventilator. Propofol has been weaned down to 20 mcg/kg/min. This morning, he is on assist-control rate of 16 tidal volume of 500, FiO2 of 50% with a PEEP of 6 and a chest x-ray shows no acute changes. Tracheostomy tube is in good location. Some limited atelectatic changes in lung bases are seen bilaterally. No significant respiratory secretions. Most recent sputum sample was again positive for Pseudomonas aeruginosa and the patient is currently on IV Zosyn based on the sensitivities. Meanwhile, the patient continues to have increased output through his ileostomy in the order of 450 cc over the past 8 hours. NG tube is also in place and the patient has produced 100 cc over the past 8 hours. Norepinephrine is running at 0.05 mcg/kg/min and TPN needs to be adjusted as the patient is being weaned off the propofol. Currently TPN is running. 30 cc an hour. The white cell count of 4.9, hemoglobin is 9.1 and a platelet count of 258. Electrolytes are all stable. Potassium level is at 3.8 and needs to be replaced. BUN 13 with a creatinine of 0.4. Blood sugar is at 127. The patient is arousable and following simple commands and answering questions appropriately while being on the mechanical ventilator. On 03/07/2024, the patient is awake and alert and the patient is currently off propofol. The patient is still on the mechanical ventilator assist-control mode rate of 16, tidal volume of 500, FiO2 50% with a PEEP of 6. Calm and comfortable and breathing comfortable. No significant secretions through the tracheostomy tube. Remains on IV Zosyn. He does have pseudomonal pneumonia for which she is on IV Zosyn based on antibiotic sensitivities. Remains on TPN and this was increased up to 60 cc an hour. Remains on anticoagulation with Lovenox 80 mg subcu every 12 hours. Ileostomy is still active and the patient is producing approximately 1000 cc of gastric output over the past 8 hours. Fluid balance -600 cc over the past 24 hours. White cell count is at 4.9 with a hemoglobin 8.8 and a platelet count of 255. BUN is 10 with a creatinine of 0.4 and the sodium is at 137 and a potassium level is at 4.1. Awake and alert and communicating. Profound weakness of lower extremities along with significant muscle atrophy. On 03/08/2024, the patient is on a T-piece at 40% FiO2. No significant respiratory secretions., Comfortable and awake and communicating. He is asking for some oral intake of food. No respiratory difficulties. Remains on TPN at rate of 60 cc an hour. Ileostomy output has been 1500 over the past 8 hours. Fluid balance is 0. Remains on low-dose norepinephrine 0.04 mcg/kg/min. The white cell count of 5 with a hemoglobin 8.3 and a platelet count of 236. BUN is 8 with a creatinine of 0.37 and sodium levels at 137. He remains on IV Zosyn regarding his pseudomonal pneumonia. Chest x-ray findings are also stable. Objective - Vital Signs Vital signs: Vital Signs Temp 97.9 F 03/08/24 08:00 Pulse 82 03/08/24 11:20 Resp 11 L 03/08/24 08:45 BP 96/52 03/08/24 08:45 Pulse Ox 96 03/08/24 08:45 FiO2 40 03/08/24 08:01 Intake & Output 03/07/24 03/08/24 03/08/24 18:59 06:59 18:59 Intake Total 652.284 3552.222 43.211 Output Total 1325 1635 75 Balance -1000.638 623.222 -31.789 Intake: IV 240 560 40 KVO 240 360 40 Piperacillin-Tazobactam 3 200 .375 gm In Sodium Chloride 0.9% 100 ml @ 25 mls/hr IVPB Q8H ANINE Rx#: [id number] Intake, IV Titration 84.362 1698.222 3.211 Amount Mvi, Adult No.4 with Vit 60 1255 K 10 ml Trace (Conc-1Ml/ Dose) 1 ml Sodium Acetate 40 meq Potassium Acetate 50 meq Calcium Gluconate 1 gm Magnesium Sulfate gm 1 gm Potassium Phosphate 21 mmol In Amino Acids 5 %/Dextrose 20 % 1,000 ml @ 60 mls/hr IV .[id number] ANNIE Rx#: [id number] Mvi, Adult No.4 with Vit 420 K 10 ml Trace (Conc-1Ml/ Dose) 1 ml Sodium Acetate 40 meq Potassium Acetate 50 meq Calcium Gluconate 1 gm Magnesium Sulfate gm 1.5 gm Potassium Phosphate 24 mmol In Amino Acids 5 %/Dextrose 20 % 1,000 ml @ 60 mls/hr IV .[id number] ANNIE Rx#: [id number] Norepinephrine 32 mg In 24.362 23.222 3.211 Sodium Chloride 0.9% 218 ml @ 0.08 MCG/KG/MIN 3. 653 mls/hr IV .Q24H ANNIE Rx#:[id number] Output: Urine 725 835 75 Stool 600 800 Other: Voiding Method Indwelling Catheter Indwelling Catheter Indwelling Catheter ABP, PAP, CO, CI - Last Documented Arterial Blood Pressure 91/88 - Exam GENERAL: A 48-year-old male patient, currently has a tracheostomy tube and 40% T-piece Head exam was generally normal. There was no scleral icterus or corneal arcus. Mucous membranes were moist. HEENT: No scleral icterus. No conjunctival pallor. Normocephalic, atraumatic. CARDIOVASCULAR: S1 and S2 present. No murmurs, rubs, or gallops. PULMONARY: Diminished breath sounds were bilaterally. No wheezes rhonchi or crackles ABDOMEN: Soft, nontender, nondistended, normoactive bowel sounds. No palpable organomegaly. Functioning ileostomy. 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 EXTREMITIES: No cyanosis, clubbing, or pedal edema. NEUROLOGICAL: Profound weakness in all 4 extremities, weak cough, extensive muscle atrophy in all 4 extremities. Arousable and awake and follows simple commands and communicates. Off sedation SKIN: No rashes. Left chest PICC line. - Labs CBC & Chem 7: 03/08/24 05:25 03/08/24 05:25 Labs: Abnormal Lab Results - Last 24 Hours (Table) 03/07/24 03/07/24 03/08/24 Range/Units 17:42 23:38 05:25 RBC (4.30-5.90) m/uL Hgb (13.0-17.5) gm/dL Hct (39.0-53.0) % MCHC (31.0-37.0) g/dL RDW (11.5-15.5) % Carbon Dioxide 33 H (22-30) mmol/L BUN 8 L (9-20) mg/dL Creatinine 0.37 L (0.66-1.25) mg/dL POC Glucose (mg/dL) 119 H 114 H (70-110) mg/dL Phosphorus 2.3 L (2.5-4.5) mg/dL 03/08/24 Range/Units 05:25 RBC 3.58 L (4.30-5.90) m/uL Hgb 9.3 L (13.0-17.5) gm/dL Hct 31.7 L (39.0-53.0) % MCHC 29.4 L (31.0-37.0) g/dL RDW 16.8 H (11.5-15.5) % Carbon Dioxide (22-30) mmol/L BUN (9-20) mg/dL Creatinine (0.66-1.25) mg/dL POC Glucose (mg/dL) (70-110) mg/dL Phosphorus (2.5-4.5) mg/dL Assessment and Plan Plan: Acute hypoxic and hypercapnic respiratory failure, requiring mechanical intubation on 02/26/24. The patient is known to have chronic respiratory insufficiency as the patient has poor ability to perform pulmonary toileting, weak cough, and has had recurrent pneumonias with gram-negative and MRSA. Most recent sputum sample from 02/26/2024 is positive for Pseudomonas aeruginosa and the patient is currently on IV cefepime. Patient failed BiPAP therapy during this current admission the patient had to be intubated and placed on the mechanical ventilator on 02/26/2024. The patient was given a trial of extubation on 03/01/2024 and within 2 hours of extubation he had to be reintubated for increased work of breathing and hypoxic respiratory failure. Bronchoscopy was done on 03/02/2024 and 03/03/2024 revealed copious amount of purulent respiratory secretions and mucous plugs which probably contributing to his ongoing respiratory failure. The patient has poor ability to cough and perform pulmonary toileting and clear his respiratory secretions. 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 The bronchoalveolar lavage is showing Pseudomonas aeruginosa and the sensitivities were noted and the patient remains on IV Zosyn. . The patient is status post tracheostomy tube insertion on 03/05/2024. Patient is currently off the mechanical ventilator and the patient is on a 40% T-piece. Tracheal stenosis at the site of the previously inserted tracheostomy tube, visualized on most recent bronchoscopy Previous history of recurrent ventilator dependent respiratory failure, secondary to pneumonia and mucous plugging. The patient has undergone previous bronchoscopies and cultures from bronchoscopy on 12/31/2023 was positive for MRSA and subsequent bronchoscopy on 01/03/2024 was positive for Klebsiella pneumoniae and Bella glabrata. Most recent sputum analysis from 02/26/2024 was positive for Pseudomonas aeruginosa and the patient is currently on IV Zosyn. Repeat bronchioloalveolar lavage from 03/02/2024 is positive for Pseudomonas aeruginosa. Sepsis secondary to above, recurrent pneumonia, currently low-dose norepinephrine Leukocytosis, resolved Crohn's disease, with previous complication of bowel perforation s/p colectomy and diverting ileostomy. The patient also has had previous history of abdominal wall bleeding there is currently inactive and stable. The patient has a high output ileostomy TPN for nutritional support Electrolyte imbalance at time of admission including hyponatremia, hypokalemia, hypophosphatemia, hypomagnesemia and hyperphosphatemia, all resolved Tracheobronchomalacia History of DVT, on therapeutic dose of Lovenox CVA/TIA, with residual left-sided weakness Right BKA History of asystole/cardiac arrest in 2021 Plan: Keep the patient on a 40% T-piece Deflate the cuff No sedation Wean off norepinephrine and discontinue Will do a swallow evaluation and provide the patient some soft diet Continue IV Zosyn at the patient's most recent bronchioloalveolar lavage that was done on 03/02/2024 showed persistent Pseudomonas aeruginosa Chest x-ray findings are stable TPN for nutritional support, rate has been adjusted Lovenox for anticoagulation Continue bronchodilators Will continue to follow make further recommendations based on his progress. Critical care evaluation that was done more than 30 minutes. Time with Patient: Greater than 30
[2024-03-08 17:42] LABS: Glucose,Whole Blood 129 mg/dL (70-110)
[2024-03-08 23:22] LABS: Glucose,Whole Blood 107 mg/dL (70-110)
--- NOTE | 2024-03-09 05:35 | P.PN ---
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 On today's evaluation that is 03/06/2024, the patient did have a low-grade fever of 99.9 F this morning, the patient is on ventilator FiO2 is currently stable no significant purulent secretion through the ET any diarrhea has been reported by the nursing staff requiring low-dose pressor support. Patient white count is 4.9 creatinine 0.45 Objective - Vital Signs Vital signs: Vital Signs Temp 99.5 F 03/06/24 12:00 Pulse 96 03/06/24 12:15 Resp 25 H 03/06/24 12:15 BP 100/46 03/06/24 12:15 Pulse Ox 98 03/06/24 12:15 FiO2 50 03/06/24 12:00 Intake & Output 03/05/24 03/06/24 03/06/24 18:59 06:59 18:59 Intake Total 1878.942 604.953 277.224 Output Total 1420 1144 295 Balance 458.942 -539.047 -17.776 Intake: IV 520 260 190 KVO 220 60 90 Piperacillin-Tazobactam 3 200 100 .375 gm In Sodium Chloride 0.9% 100 ml @ 25 mls/hr IVPB Q8H [facility] Rx#: [id number] Intake, IV Titration 1358.942 344.953 87.224 Amount Mvi, Adult No.4 with Vit 1013.5 K 10 ml Trace (Conc-1Ml/ Dose) 1 ml Sodium Acetate 40 meq Potassium Acetate 50 meq Calcium Gluconate 1 gm Magnesium Sulfate gm 1.5 gm Potassium Phosphate 24 mmol In Amino Acids 5 %/Dextrose 20 % 1,000 ml @ 30 mls/hr IV .Q24H [facility] Rx#: [id number] Norepinephrine 32 mg In 14.151 19.771 8.448 Sodium Chloride 0.9% 218 ml @ 0.08 MCG/KG/MIN 3. 653 mls/hr IV .Q24H [facility] Rx#:[id number] propofoL 1,000 mg In 331.291 325.182 78.776 Empty Bag 1 bag @ 15 MCG/ KG/MIN 8.573 mls/hr IV . [id number] [facility] Rx#:[id number] Output: Gastric Drainage 100 Urine 1170 594 295 Stool 450 Estimated Blood Loss 250 Other: Voiding Method Indwelling Catheter Indwelling Catheter Indwelling Catheter ABP, PAP, CO, CI - Last Documented Arterial Blood Pressure 91/88 - Exam GENERAL DESCRIPTION: Middle-age man intubated through the trach RESPIRATORY SYSTEM: Unlabored breathing , coarse breath sounds bilaterally HEART: S1 S2 regular rate and rhythm , ABDOMEN: Soft , no tenderness - Labs CBC & Chem 7: 03/08/24 05:25 03/08/24 05:25 Labs: Abnormal Lab Results - Last 24 Hours (Table) 03/06/24 03/06/24 03/06/24 Range/Units 05:40 06:35 12:32 RBC 3.52 L (4.30-5.90) m/uL Hgb 9.1 L (13.0-17.5) gm/dL Hct 31.0 L (39.0-53.0) % MCHC 29.4 L (31.0-37.0) g/dL RDW 17.6 H (11.5-15.5) % Chloride 112 H (98-107) mmol/L Carbon Dioxide 21 L (22-30) mmol/L Creatinine 0.45 L (0.66-1.25) mg/dL POC Glucose (mg/dL) 127 H (70-110) mg/dL Microbiology - Last 24 Hours (Table) 03/02/24 17:43 Gram Stain - Final Bronchoalviolar Lavage - Left Bronchial Washings Culture - Final Pseudomonas aeruginosa Assessment and Plan (1) Pneumonia Current Visit: No Status: Acute Code(s): J18.9 - PNEUMONIA, UNSPECIFIED ORGANISM SNOMED Code(s): 760958842 (2) Sepsis Current Visit: No Status: Acute Code(s): A41.9 - SEPSIS, UNSPECIFIED ORGANISM SNOMED Code(s): 66611750 Plan: 1patient presented to hospital with sepsis in this patient who did have a low- grade fever elevated white count tachycardia meeting criteria for SIRS source likely pneumonia at this patient presenting with increasing shortness of breath cough with evidence of right-sided infiltrate, patient has been admitted to the hospital and will need to cover for resistant gram-positive as well as gram- negative 2-sputum currently growing Pseudomonas blood culture so far negative 3patient is status post bronchoscopy and lavage completed on 03/02/2024 cultur es currently growing Pseudomonas that is resistant to cefepime, patient antibiotic has been adjusted to Zosyn to continue and monitor clinical course closely Dictation was produced using [employer] dictation software. please excuse any grammatical, word or spelling errors. Time with Patient: Less than 30
--- NOTE | 2024-03-09 05:36 | P.PN ---
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 On today's evaluation that is 03/07/2024, patient did not have any fever and denies any chills, patient is breathing comfortably on T collar, patient with no chest pain or any worsening cough patient did not have any abdominal pain nausea vomiting or any loose stools. Patient white count is 4.9, creatinine 0.40 Objective - Vital Signs Vital signs: Vital Signs Temp 99.1 F 03/07/24 12:00 Pulse 80 03/07/24 14:15 Resp 26 H 03/07/24 14:15 BP 102/52 03/07/24 14:15 Pulse Ox 99 03/07/24 14:15 FiO2 60 03/07/24 14:00 Intake & Output 03/06/24 03/07/24 03/07/24 18:59 06:59 18:59 Intake Total 428.475 7417.539 220.124 Output Total 610 1535 1075 Balance -176.453 -343.461 -854.876 Weight 93.9 kg Intake: IV 330 440 140 KVO 230 240 140 Piperacillin-Tazobactam 3 100 200 .375 gm In Sodium Chloride 0.9% 100 ml @ 25 mls/hr IVPB Q8H [facility] Rx#: [id number] Intake, IV Titration 103.547 751.539 80.124 Amount Mvi, Adult No.4 with Vit 720 60 K 10 ml Trace (Conc-1Ml/ Dose) 1 ml Sodium Acetate 40 meq Potassium Acetate 50 meq Calcium Gluconate 1 gm Magnesium Sulfate gm 1 gm Potassium Phosphate 21 mmol In Amino Acids 5 %/Dextrose 20 % 1,000 ml @ 60 mls/hr IV .[id number] [facility] Rx#: [id number] Norepinephrine 32 mg In 24.771 31.539 20.124 Sodium Chloride 0.9% 218 ml @ 0.08 MCG/KG/MIN 3. 653 mls/hr IV .Q24H [facility] Rx#:[id number] propofoL 1,000 mg In 78.776 Empty Bag 1 bag @ 15 MCG/ KG/MIN 8.573 mls/hr IV . [id number] [facility] Rx#:[id number] Output: Drainage 400 Mid Abdomen 400 Urine 610 535 475 Stool 600 600 Other: Voiding Method Indwelling Catheter Indwelling Catheter Indwelling Catheter ABP, PAP, CO, CI - Last Documented Arterial Blood Pressure 91/88 - Exam GENERAL DESCRIPTION: Middle-age man lying in bed in no distress RESPIRATORY SYSTEM: Unlabored breathing , decreased intensity of breath sounds HEART: S1 S2 regular rate and rhythm , ABDOMEN: Soft , no tenderness - Labs CBC & Chem 7: 03/08/24 05:25 03/08/24 05:25 Labs: Abnormal Lab Results - Last 24 Hours (Table) 03/06/24 03/07/24 03/07/24 Range/Units 17:05 00:31 05:29 RBC (4.30-5.90) m/uL Hgb (13.0-17.5) gm/dL Hct (39.0-53.0) % MCHC (31.0-37.0) g/dL RDW (11.5-15.5) % Chloride (98-107) mmol/L Creatinine (0.66-1.25) mg/dL Glucose (74-99) mg/dL POC Glucose (mg/dL) 136 H 134 H 116 H (70-110) mg/dL Calcium (8.4-10.2) mg/dL Phosphorus (2.5-4.5) mg/dL Albumin (3.5-5.0) g/dL 03/07/24 03/07/24 03/07/24 Range/Units 05:55 05:55 11:24 RBC 3.40 L (4.30-5.90) m/uL Hgb 8.8 L (13.0-17.5) gm/dL Hct 30.1 L (39.0-53.0) % MCHC 29.2 L (31.0-37.0) g/dL RDW 17.0 H (11.5-15.5) % Chloride 110 H (98-107) mmol/L Creatinine 0.40 L (0.66-1.25) mg/dL Glucose 117 H (74-99) mg/dL POC Glucose (mg/dL) 113 H (70-110) mg/dL Calcium 8.2 L (8.4-10.2) mg/dL Phosphorus 2.4 L (2.5-4.5) mg/dL Albumin 2.8 L (3.5-5.0) g/dL Assessment and Plan (1) Pneumonia Current Visit: No Status: Acute Code(s): J18.9 - PNEUMONIA, UNSPECIFIED ORGANISM SNOMED Code(s): 383628913 (2) Sepsis Current Visit: No Status: Acute Code(s): A41.9 - SEPSIS, UNSPECIFIED ORGANISM SNOMED Code(s): 00725054 Plan: 1patient presented to hospital with sepsis in this patient who did have a low- grade fever elevated white count tachycardia meeting criteria for SIRS source likely pneumonia at this patient presenting with increasing shortness of breath cough with evidence of right-sided infiltrate, patient has been admitted to the hospital and will need to cover for resistant gram-positive as well as gram- negative 2-patient is status post bronchoscopy and lavage completed on 03/02/2024 cultures currently growing Pseudomonas that is resistant to cefepime, patient is currently covered with Zosyn and will monitor clinical course closely Dictation was produced using [employer] dictation software. please excuse any grammatical, word or spelling errors. Time with Patient: Less than 30
--- NOTE | 2024-03-09 05:37 | P.PN ---
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 On today's evaluation that is 03/08/2024, Patient is afebrile patient is currently on trach collar with 35% FiO2 and denies having any shortness of br eath, the patient denies any chest pain or any worsening cough, the patient denies any nausea vomiting did not have any abdominal pain and no diarrhea. Patient white count is 5.0 creatinine 0.37 Objective - Vital Signs Vital signs: Vital Signs Temp 98.2 F 03/08/24 16:00 Pulse 67 03/08/24 20:16 Resp 18 03/08/24 20:16 BP 97/51 03/08/24 19:00 Pulse Ox 98 03/08/24 20:12 FiO2 40 03/08/24 20:12 Intake & Output 03/08/24 03/08/24 03/09/24 06:59 18:59 06:59 Intake Total 2258.222 1166.211 20 Output Total 1635 1625 35 Balance 623.222 -458.789 -15 Intake: IV 560 160 20 KVO 360 160 20 Piperacillin-Tazobactam 3 200 .375 gm In Sodium Chloride 0.9% 100 ml @ 25 mls/hr IVPB Q8H [facility] Rx#: [id number] Intake, IV Titration 7942.022 3719.211 Amount Mvi, Adult No.4 with Vit 1255 1003 K 10 ml Trace (Conc-1Ml/ Dose) 1 ml Sodium Acetate 40 meq Potassium Acetate 50 meq Calcium Gluconate 1 gm Magnesium Sulfate gm 1 gm Potassium Phosphate 21 mmol In Amino Acids 5 %/Dextrose 20 % 1,000 ml @ 60 mls/hr IV .[id number] [facility] Rx#: [id number] Mvi, Adult No.4 with Vit 420 K 10 ml Trace (Conc-1Ml/ Dose) 1 ml Sodium Acetate 40 meq Potassium Acetate 50 meq Calcium Gluconate 1 gm Magnesium Sulfate gm 1.5 gm Potassium Phosphate 24 mmol In Amino Acids 5 %/Dextrose 20 % 1,000 ml @ 60 mls/hr IV .[id number] [facility] Rx#: [id number] Norepinephrine 32 mg In 23.222 3.211 Sodium Chloride 0.9% 218 ml @ 0.08 MCG/KG/MIN 3. 653 mls/hr IV .Q24H [facility] Rx#:[id number] Output: Drainage 1200 Mid Abdomen 1200 Urine 835 425 35 Stool 800 Other: Voiding Method Indwelling Catheter Indwelling Catheter ABP, PAP, CO, CI - Last Documented Arterial Blood Pressure 91/88 - Exam GENERAL DESCRIPTION: Middle-age man lying in bed in no distress RESPIRATORY SYSTEM: Unlabored breathing , decreased intensity of breath sounds HEART: S1 S2 regular rate and rhythm , ABDOMEN: Soft , no tenderness - Labs CBC & Chem 7: 03/08/24 05:25 03/08/24 05:25 Labs: Abnormal Lab Results - Last 24 Hours (Table) 03/07/24 03/08/24 03/08/24 Range/Units 23:38 05:25 05:25 RBC 3.58 L (4.30-5.90) m/uL Hgb 9.3 L (13.0-17.5) gm/dL Hct 31.7 L (39.0-53.0) % MCHC 29.4 L (31.0-37.0) g/dL RDW 16.8 H (11.5-15.5) % Carbon Dioxide 33 H (22-30) mmol/L BUN 8 L (9-20) mg/dL Creatinine 0.37 L (0.66-1.25) mg/dL POC Glucose (mg/dL) 114 H (70-110) mg/dL Phosphorus 2.3 L (2.5-4.5) mg/dL 03/08/24 Range/Units 17:40 RBC (4.30-5.90) m/uL Hgb (13.0-17.5) gm/dL Hct (39.0-53.0) % MCHC (31.0-37.0) g/dL RDW (11.5-15.5) % Carbon Dioxide (22-30) mmol/L BUN (9-20) mg/dL Creatinine (0.66-1.25) mg/dL POC Glucose (mg/dL) 129 H (70-110) mg/dL Phosphorus (2.5-4.5) mg/dL Assessment and Plan (1) Pneumonia Current Visit: No Status: Acute Code(s): J18.9 - PNEUMONIA, UNSPECIFIED ORGANISM SNOMED Code(s): 997397131 (2) Sepsis Current Visit: No Status: Acute Code(s): A41.9 - SEPSIS, UNSPECIFIED ORGANISM SNOMED Code(s): 10939753 Plan: 1patient presented to hospital with sepsis in this patient who did have a low- grade fever elevated white count tachycardia meeting criteria for SIRS source likely pneumonia at this patient presenting with increasing shortness of breath cough with evidence of right-sided infiltrate, patient has been admitted to the hospital and will need to cover for resistant gram-positive as well as gram- negative 2-patient is status post bronchoscopy and lavage completed on 03/02/2024 cultures currently growing Pseudomonas that is resistant to cefepime, 3-patient is afebrile white count is normal, patient will be treated with a 10- day course of Zosyn and monitor clinical course closely Dictation was produced using [employer] dictation software. please excuse any grammatical, word or spelling errors. Time with Patient: Less than 30
[2024-03-09 06:16] LABS: Glucose,Whole Blood 97 mg/dL (70-110)
[2024-03-09 06:29] LABS: African American GFR (CKD) >90 (>60 ml/min/1.73 sqM); Anion Gap -1 mmol/L; Blood Urea Nitrogen 9 mg/dL (9-20); Calcium 8.3 mg/dL (8.4-10.2); Carbon Dioxide 37 mmol/L (22-30); Chloride 99 mmol/L (98-107); Glucose 107 mg/dL (74-99); Magnesium 1.7 mg/dL (1.6-2.3); Non-African American GFR(CKD) >90 (>60 ml/min/1.73 sqM); Phosphorus 2.7 mg/dL (2.5-4.5); Potassium 4.4 mmol/L (3.5-5.1); Sodium 135 mmol/L (137-145)
[2024-03-09] MEDS ORDERED: Magnesium Replacement Protocol 1 EACH MISC MISCELLANE PRN (08:27)
--- NOTE | 2024-03-09 08:45 | XR ---
EXAMINATION TYPE: XR chest 1V portable DATE OF EXAM: 03/09/2024 8:38 AM COMPARISON: 03/08/2024 CLINICAL INDICATION: Male, 48 years old with shortness of breath, history of follow up xray, , FINDINGS: Tracheostomy cannula. Low lung volumes and further limitation due to lordotic positioning. Surgical c lips at the right base of the neck. Left-sided CVC catheter within the upper right atrium. There are interstitial opacities which persist bilaterally with patchy bibasilar opacities, right greater than left with slight interval improvement. IMPRESSION: Limited by positioning and hypoventilatory changes. Interstitial opacities persist. Slight improvemen t in right greater than left bibasilar airspace disease. [facility], , 03/09/2024 8:42 AM
[2024-03-09] MEDS: MAGNESIUM SULFATE-D5W PMX 1 GM in DEXTROSE/WATER 1 100ML.BAG IVPB ONE (09:05)
[2024-03-09] MEDS: MVI, ADULT NO.4 WITH VIT K 10 ML, TRACE (CONC-1ML/DOSE) 1 ML, SODIUM CHLORIDE 4MEQ/ML V... IV SCH (09:06)
[2024-03-09 11:22] LABS: Glucose,Whole Blood 108 mg/dL (70-110)
[2024-03-09] MEDS: FAT EMULSION 20% 250 ML in EMPTY BAG 1 BAG IV SCH (12:52)
--- NOTE | 2024-03-09 13:18 | P.PN ---
Subjective Progress Note Date: 03/09/24 Principal diagnosis: Acute hypoxic and hypercapnic respiratory failure requiring intubation on 02/26/2024, tracheostomy on 03/05/2024 Patient is a 48-year-old male with complex past medical history including CVA, previous DVTs, right BKA, cardiac arrest in 2021, Crohn's disease, enterocutaneous fistulas, previous bowel resection, ventilator dependent respiratory failure, previous tracheostomy and reversal. Recently was admitted 12/13/2023 through 12/25/2023 for pneumonia and respiratory failure due to mucous plugging. He was intubated and placed on mechanical ventilator for approximately 6 days. He did have a bronchoscopy with BAL, microbiology positive for haemophilus influenza. Eventually, discharged home, and returned 01/02/24 for GIB from his ostomy. Was reintubated and did spend some time on the ventilator for reccurent pneumonia and mucous plugging. During this time, had multiple bronchoscopies with BAL, once on 12/31/2023 and again on 01/03/2024, isolated organisms including MRSA and Pseudomonas. Patient was eventually discharged back home on 01/16/2024. More recently, patient had an ER visit for increased work of breathing on February 22, and the patient was sent home. Returned for similar symptoms yesterday afternoon. Chest x-ray done on [facility] [place] showing cardiomegaly with pulmonary vascular congestion and questionable right lower lobe infiltrate or effusion. CBC: WBC count 11.2, hemoglobin 10.5, hematocrit 37.3, platelets 315. CMP: Sodium 138, potassium 4.8, chloride 97, serum bicarb 39, BUN 23, creatinine 0.45, glucose 103. Lactic 1. LFTs unremarkable. Troponin less than 0.012. I am evaluating this patient emergency department, he is currently unresponsive, to even painful stimuli. He is on a 15 L nonrebreather. SpO2 88%. Diminished breath sounds on the right Will place this patient on BiPAP with initial settings 16/5 FiO2 to be titrated accordingly. Will get a stat ABG. We will repeat chest x-ray. I did talk to the patient's son, Alan, he is adamant that the patient remain a full code, would want the patient intubated if necessary. On reassessment in the emergency department, patient remained on BiPAP with set tings 16/5 100%. He remains unresponsive to painful stimuli. Now only achieving tidal volumes ranging from 100 to 200 cc. Unfortunately, we were not able to to get an initial blood gas. I recommended that the patient be moved to the trauma bay and intubated by the FRONT END TECHNICIAN. Follow-up chest x-ray showing the endotracheal tube in appropriate position above the avery. Orogastric tube coursing below the diaphragm. Initial ventilator settings include assist- control, respiratory rate 20, tidal volume 500, FiO2 100%, PEEP of 5. Currently, patient is fairly asynchronous with the ventilator and he is biting the tube. There are copious amounts of blood-tinged sputum in the ET tube. Elevated peak airway pressures of 45. Static pressure 32. The nurses are working on appropriately sedating the patient with propofol. Postintubation, the patient did become hypotensive, currently receiving his second liter of normal saline. Will also start the patient on norepinephrine to maintain a MAP of grea ter than 65 mmHg. I did insert a left femoral arterial line. Following this, we did obtain an ABG showing profound hypercapnic and hypoxic respiratory failure. PaO2 of 89, pCO2 98, pH of 7.11. Appropriate ventilator adjustments were made including increasing the rate to 26 and PEEP can be increased to 8. Patient may eventually need repeat bronchoscopy with BAL. Case will be discussed with Dr. Munoz. Patient is still waiting for a bed in the intensive care unit. I did call and update patient's son Alan about his change in clinical condition. On 03/07/2024, the patient is awake and alert and the patient is currently off propofol. The patient is still on the mechanical ventilator assist-control mode rate of 16, tidal volume of 500, FiO2 50% with a PEEP of 6. Calm and comfortable and breathing comfortable. No significant secretions through the tracheostomy tube. Remains on IV Zosyn. He does have pseudomonal pneumonia for which she is on IV Zosyn based on antibiotic sensitivities. Remains on TPN and this was increased up to 60 cc an hour. Remains on anticoagulation with Lovenox 80 mg subcu every 12 hours. Ileostomy is still active and the patient is producing approximately 1000 cc of gastric output over the past 8 hours. Fluid balance -600 cc over the past 24 hours. White cell count is at 4.9 with a hemoglobin 8.8 and a platelet count of 255. BUN is 10 with a creatinine of 0.4 and the sodium is at 137 and a potassium level is at 4.1. Awake and alert and communicating. Profound weakness of lower extremities along with significant muscle atrophy. On 03/08/2024, the patient is on a T-piece at 40% FiO2. No significant respiratory secretions., Comfortable and awake and communicating. He is asking for some oral intake of food. No respiratory difficulties. Remains on TPN at rate of 60 cc an hour. Ileostomy output has been 1500 over the past 8 hours. Fluid balance is 0. Remains on low-dose norepinephrine 0.04 mcg/kg/min. The white cell count of 5 with a hemoglobin 8.3 and a platelet count of 236. BUN is 8 with a creatinine of 0.37 and sodium levels at 137. He remains on IV Zosyn regarding his pseudomonal pneumonia. Chest x-ray findings are also stable. Patient was evaluated today on 03/09/2024, patient remains on T-piece, at 35% FiO2, seems to be fairly comfortable, does not seem to be in any distress, he is awake, communicating, does not seem to be in distress, still on TPN, 60 mL/h, patient is receiving treatment for pseudomonal infection/pneumonia and he is on Zosyn. Patient is to have a swallow evaluation today and possibly allow oral feeding. His tracheostomy was placed on 03/05, patient is still requiring low- dose norepinephrine at 0.01 mcg/kg/min. Basic metabolic profile is normal, bicarb is 37 BUN is 9 creatinine 0.41 chest x-ray continues show interstitial opacities with slight improvement specially in the right and left basilar areas Objective - Vital Signs Vital signs: Vital Signs Temp 97.8 F 03/09/24 08:00 Pulse 82 03/09/24 11:52 Resp 23 03/09/24 10:00 BP 97/62 03/09/24 10:00 Pulse Ox 95 03/09/24 09:45 FiO2 35 03/09/24 10:00 Intake & Output 03/08/24 03/09/24 03/09/24 18:59 06:59 18:59 Intake Total 1166.211 498.114 372.521 Output Total 1625 1205 365 Balance -458.789 -706.886 7.521 Weight 93.9 kg Intake: IV 160 240 360 KVO 160 240 80 Magnesium Sulfate-D5w Pmx 100 1 gm In Dextrose/Water 1 100ml.bag @ 100 mls/hr IVPB Q1H [facility] Rx#: [id number] Mvi, Adult No.4 with Vit 180 K 10 ml Trace (Conc-1Ml/ Dose) 1 ml Sodium Acetate 40 meq Potassium Acetate 50 meq Calcium Gluconate 1 gm Magnesium Sulfate gm 1 gm Potassium Phosphate 21 mmol In Amino Acids 5 %/Dextrose 20 % 1,000 ml @ 60 mls/hr IV .[id number] [facility] Rx#: [id number] Intake, IV Titration 1006.211 258.114 12.521 Amount Mvi, Adult No.4 with Vit 1003 K 10 ml Trace (Conc-1Ml/ Dose) 1 ml Sodium Acetate 40 meq Potassium Acetate 50 meq Calcium Gluconate 1 gm Magnesium Sulfate gm 1 gm Potassium Phosphate 21 mmol In Amino Acids 5 %/Dextrose 20 % 1,000 ml @ 60 mls/hr IV .[id number] [facility] Rx#: [id number] Norepinephrine 32 mg In 3.211 Sodium Chloride 0.9% 218 ml @ 0.08 MCG/KG/MIN 3. 653 mls/hr IV .Q24H [facility] Rx#:[id number] Norepinephrine 4 mg In 258.114 12.521 Sodium Chloride 0.9% 250 ml @ 0.03 MCG/KG/MIN 10. 733 mls/hr IV .[id number] [facility] Rx#:[id number] Output: Drainage 1200 Mid Abdomen 1200 Urine 425 555 365 Stool 650 Other: Voiding Method Indwelling Catheter Indwelling Catheter Indwelling Catheter ABP, PAP, CO, CI - Last Documented Arterial Blood Pressure 91/88 - Exam GENERAL: A 48-year-old male patient, currently has a tracheostomy tube 35% T- piece Head exam was generally normal. There was no scleral icterus or corneal arcus. Mucous membranes were moist. Tracheostomy is intact HEENT: No scleral icterus. No conjunctival pallor. Normocephalic, atraumatic. CARDIOVASCULAR: S1 and S2 present. No murmurs, rubs, or gallops. PULMONARY: Diminished breath sounds were bilaterally. No wheezes rhonchi or crackles ABDOMEN: Soft, nontender, nondistended, normoactive bowel sounds. No palpable organomegaly. Functioning ileostomy. 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 EXTREMITIES: No cyanosis, clubbing, or pedal edema. Right below-knee amputation is noted. NEUROLOGICAL: Profound weakness in all 4 extremities, weak cough, extensive muscle atrophy in all 4 extremities. Arousable and awake and follows simple commands and communicates. SKIN: No rashes. Left chest PICC line. - Labs CBC & Chem 7: 03/08/24 05:25 03/09/24 05:34 Labs: Abnormal Lab Results - Last 24 Hours (Table) 03/08/24 03/09/24 Range/Units 17:40 05:34 Sodium 135 L (137-145) mmol/L Carbon Dioxide 37 H (22-30) mmol/L Creatinine 0.41 L (0.66-1.25) mg/dL Glucose 107 H (74-99) mg/dL POC Glucose (mg/dL) 129 H (70-110) mg/dL Calcium 8.3 L (8.4-10.2) mg/dL Assessment and Plan Assessment: Impression: Acute hypoxic and hypercapnic respiratory failure, requiring mechanical intubation on 02/26/24. 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 Sepsis/septic shock secondary to above, recurrent pneumonia, currently low-dose norepinephrine Crohn's disease, with previous complication of bowel perforation s/p colectomy and diverting ileostomy. The patient also has had previous history of abdominal wall bleeding there is currently inactive and stable. The patient has a high output ileostomy TPN for nutritional support Electrolyte imbalance at time of admission including hyponatremia, hypokalemia, hypophosphatemia, hypomagnesemia and hyperphosphatemia, all resolved Tracheobronchomalacia History of DVT, on therapeutic dose of Lovenox CVA/TIA, with residual left-sided weakness Right BKA History of asystole/cardiac arrest in 2021 Plan: Continue T-piece Deflate cough Swallow evaluation and decide whether the patient could be orally fed Taper and possibly discontinue norepinephrine Continue Zosyn for pseudomonal infection Continue nutritional support and GI prophylaxis Lovenox for anticoagulation Continue bronchodilators Long-term prognosis remains poor and guarded Patient remains critically ill Critical care time is over 30 minutes Time with Patient: Greater than 30
--- NOTE | 2024-03-09 13:55 | P.PN ---
Subjective Progress Note Date: 03/09/24 Patient seen and examined at bedside. No acute events. Concern inferior to the tracheostomy site with some possible skin breakdown due to pressure from tracheostomy plastic. Objective - Vital Signs Vital signs: Vital Signs Temp 98.1 F 03/09/24 12:00 Pulse 91 03/09/24 13:15 Resp 24 03/09/24 13:15 BP 111/64 03/09/24 13:15 Pulse Ox 96 03/09/24 13:15 FiO2 35 03/09/24 12:00 Intake & Output 03/08/24 03/09/24 03/09/24 18:59 06:59 18:59 Intake Total 1166.211 498.114 712.521 Output Total 1625 1205 565 Balance -458.789 -706.886 147.521 Weight 93.9 kg Intake: IV 160 240 600 KVO 160 240 140 Magnesium Sulfate-D5w Pmx 100 1 gm In Dextrose/Water 1 100ml.bag @ 100 mls/hr IVPB Q1H [facility] Rx#: [id number] Mvi, Adult No.4 with Vit 360 K 10 ml Trace (Conc-1Ml/ Dose) 1 ml Sodium Acetate 40 meq Potassium Acetate 50 meq Calcium Gluconate 1 gm Magnesium Sulfate gm 1 gm Potassium Phosphate 21 mmol In Amino Acids 5 %/Dextrose 20 % 1,000 ml @ 60 mls/hr IV .[id number] [facility] Rx#: [id number] Intake, IV Titration 1006.211 258.114 112.521 Amount Mvi, Adult No.4 with Vit 1003 K 10 ml Trace (Conc-1Ml/ Dose) 1 ml Sodium Acetate 40 meq Potassium Acetate 50 meq Calcium Gluconate 1 gm Magnesium Sulfate gm 1 gm Potassium Phosphate 21 mmol In Amino Acids 5 %/Dextrose 20 % 1,000 ml @ 60 mls/hr IV .[id number] [facility] Rx#: [id number] Norepinephrine 32 mg In 3.211 Sodium Chloride 0.9% 218 ml @ 0.08 MCG/KG/MIN 3. 653 mls/hr IV .Q24H [facility] Rx#:[id number] Norepinephrine 4 mg In 258.114 12.521 Sodium Chloride 0.9% 250 ml @ 0.03 MCG/KG/MIN 10. 733 mls/hr IV .[id number] [facility] Rx#:[id number] Piperacillin-Tazobactam 3 100 .375 gm In Sodium Chloride 0.9% 100 ml @ 25 mls/hr IVPB Q8H [facility] Rx#: [id number] Output: Drainage 1200 Mid Abdomen 1200 Urine 425 555 565 Stool 650 Other: Voiding Method Indwelling Catheter Indwelling Catheter Indwelling Catheter ABP, PAP, CO, CI - Last Documented Arterial Blood Pressure 91/88 - Constitutional General appearance: Present: cooperative, no acute distress - Respiratory Details: Ventilating well with tracheostomy - Integumentary Integumentary Comment(s): Skin below tracheostomy site with some erythema from pressure, no significant skin breakdown noted - Labs CBC & Chem 7: 03/08/24 05:25 03/09/24 05:34 Labs: Abnormal Lab Results - Last 24 Hours (Table) 03/08/24 03/09/24 Range/Units 17:40 05:34 Sodium 135 L (137-145) mmol/L Carbon Dioxide 37 H (22-30) mmol/L Creatinine 0.41 L (0.66-1.25) mg/dL Glucose 107 H (74-99) mg/dL POC Glucose (mg/dL) 129 H (70-110) mg/dL Calcium 8.3 L (8.4-10.2) mg/dL Assessment and Plan Plan: 48-year-old male status post tracheostomy. Tracheostomy appears to be functioning well. I did discuss wound care with nursing staff and recommend placing gauze under the site of pressure from the tracheostomy device to prevent any skin breakdown. Otherwise continue with ICU care.
--- NOTE | 2024-03-09 14:03 | FL ---
EXAMINATION TYPE: FL barium swallow w video DATE OF EXAM: 03/09/2024 CLINICAL HISTORY: 48-year-old male with respiratory failure and tracheostomy. Assess for aspiration TECHNIQUE: Deglutition study is performed utilizing thin liquid barium, barium thick pureed, and bar ium coated cracker. Total fluoroscopy time: 52 seconds Total images: None. Real-time fluoroscopy was provided to speech pathology. Total dose: 50 mGycm2. COMPARISON: None. FINDINGS: The oral and pharyngeal phases show satisfactory initiation and propagation with all modalities teste d. Normal mastication is seen with solid modalities tested. There is no evidence of penetration or aspiration with any modality tested. No significant pharyngeal residue was appreciated. IMPRESSION: No penetration or aspiration. Please refer to speech therapist notes for further details if necessary. [facility], , 03/09/2024 2:01 PM
[2024-03-09 17:07] LABS: Glucose,Whole Blood 118 mg/dL (70-110)
[2024-03-09] MEDS ORDERED: [UNRECOGNIZED DRUG - MIXTURE] IV SCH (21:00)
--- NOTE | 2024-03-09 21:49 | PN ---
PROGRESS NOTE DATE OF SERVICE: 03/09/2024 SUBJECTIVE: This is a 48-year-old gentleman admitted with Pseudomonas pneumonia and acute hypoxic respiratory failure, tracheostomy. The patient is started on tracheostomy today. The patient had a barium swallow video as well. Multiple consultants are following the patient closely. PAST MEDICAL HISTORY: Reviewed. REVIEW OF SYSTEMS: Could not be taken. The patient is still nonverbal. CURRENT MEDICATIONS: Reviewed. PHYSICAL EXAMINATION: VITAL SIGNS: Pulse is 90, blood pressure 111/62, respirations 26. NECK: Tracheostomy. CARDIOVASCULAR: S1, S2. RESPIRATIONS: A few scattered rhonchi. ABDOMEN: Soft. NERVOUS SYSTEM: Nonfocal. LABORATORY DATA: Hemoglobin 9.3, sodium 135. ASSESSMENT: 1. Pseudomonas pneumonia acute with possible sepsis, acute hypoxic respiratory failure with right lower lobe pneumonia present on admission, status post mechanical ventilation. 2. Status post tracheostomy. 3. Recurrent mucus plugging. 4. History of deep venous thrombosis and right below-knee amputation. 5. History of Crohn disease with previous bowel perforation. 6. Profound immunosuppression. 7. Protein-calorie malnutrition, on PPN. 8. History of previous cardiac arrest in 2021. 9. History of methicillin-resistant Staphylococcus aureus. 10.Multiple complex medical issues. RECOMMENDATIONS: Recommend to continue current management and continue symptomatic treatment and continue with antibiotics. The bronchovascular lavage culture was positive for Pseudomonas aeruginosa, but blood culture showed negative. The most recent chest x-ray, which I reviewed personally showed persistent opacity in the right lower part, which possibly pleural effusion as well. We will continue to monitor. Guarded prognosis. Further recommendations to follow. MMODL / IJN: [id number] /
[2024-03-09 23:46] LABS: Glucose,Whole Blood 124 mg/dL (70-110)
[2024-03-10] MEDS: [UNRECOGNIZED DRUG - MIXTURE] IV SCH (03:36)
[2024-03-10 06:00] LABS: Glucose,Whole Blood 127 mg/dL (70-110)
[2024-03-10 06:00] LABS: Anisocytosis Slight; Basophils % (A) 1 %; Eosinophils # (A) 0.3 k/uL (0-0.7); Eosinophils % (A) 7 %; HCT 30.9 % (39.0-53.0); HGB 9.3 gm/dL (13.0-17.5); Hypochromasia Marked; Lymphocytes # (A) 1.6 k/uL (1.0-4.8); Lymphocytes % (A) 38 %; MCH 26.3 pg (25.0-35.0); MCHC 30.1 g/dL (31.0-37.0); MCV 87.2 fL (80.0-100.0); Mean Platelet Volume 9.2; Monocytes # (A) 0.2 k/uL (0-1.0); Monocytes % (A) 3 %; Neutrophils # (A) 2.1 k/uL (1.3-7.7); Neutrophils % (A) 49 %; Platelet Count 253 k/uL (150-450); RBC 3.54 m/uL (4.30-5.90); RDW 16.9 % (11.5-15.5); WBC 4.3 k/uL (3.8-10.6)
[2024-03-10 06:06] LABS: African American GFR (CKD) >90 (>60 ml/min/1.73 sqM); Anion Gap 1 mmol/L; Blood Urea Nitrogen 11 mg/dL (9-20); Calcium 8.7 mg/dL (8.4-10.2); Carbon Dioxide 31 mmol/L (22-30); Chloride 101 mmol/L (98-107); Glucose 129 mg/dL (74-99); Magnesium 1.8 mg/dL (1.6-2.3); Non-African American GFR(CKD) >90 (>60 ml/min/1.73 sqM); Potassium 4.3 mmol/L (3.5-5.1); Sodium 133 mmol/L (137-145)
[2024-03-10] MEDS ORDERED: Magnesium Replacement Protocol 1 EACH MISC MISCELLANE PRN (06:32)
[2024-03-10] MEDS: MAGNESIUM SULFATE-D5W PMX 1 GM in DEXTROSE/WATER 1 100ML.BAG IVPB ONE (06:52)
--- NOTE | 2024-03-10 08:57 | P.PN ---
Subjective Progress Note Date: 03/09/24 Principal diagnosis: Reason for follow-up is pneumonia Patient is a 48-year-old male with a past medical history significant for CVA TIA DVT bones disease multiple abdominal surgeries did have a enterocutaneous fistula recent admission for pneumonia has been brought to the hospital with worsening shortness of with hypoxemia patient did have worsening respiratory status requiring intubation and admission to the ICU. On today's evaluation that is 03/09/2024, patient has been afebrile, patient is breathing comfortably and is currently on trach collar 28% FiO2 patient denies having any chest pain or any worsening cough no vomiting or urinary symptoms. Patient did have creatinine 0.41 no CBC was done today Objective - Vital Signs Vital signs: Vital Signs Temp 97.8 F 03/09/24 08:00 Pulse 82 03/09/24 11:52 Resp 23 03/09/24 10:00 BP 97/62 03/09/24 10:00 Pulse Ox 95 03/09/24 09:45 FiO2 35 03/09/24 10:00 Intake & Output 03/08/24 03/09/24 03/09/24 18:59 06:59 18:59 Intake Total 1166.211 498.114 372.521 Output Total 1625 1205 365 Balance -458.789 -706.886 7.521 Weight 93.9 kg Intake: IV 160 240 360 KVO 160 240 80 Magnesium Sulfate-D5w Pmx 100 1 gm In Dextrose/Water 1 100ml.bag @ 100 mls/hr IVPB Q1H [facility] Rx#: [id number] Mvi, Adult No.4 with Vit 180 K 10 ml Trace (Conc-1Ml/ Dose) 1 ml Sodium Acetate 40 meq Potassium Acetate 50 meq Calcium Gluconate 1 gm Magnesium Sulfate gm 1 gm Potassium Phosphate 21 mmol In Amino Acids 5 %/Dextrose 20 % 1,000 ml @ 60 mls/hr IV .[id number] [facility] Rx#: [id number] Intake, IV Titration 1006.211 258.114 12.521 Amount Mvi, Adult No.4 with Vit 1003 K 10 ml Trace (Conc-1Ml/ Dose) 1 ml Sodium Acetate 40 meq Potassium Acetate 50 meq Calcium Gluconate 1 gm Magnesium Sulfate gm 1 gm Potassium Phosphate 21 mmol In Amino Acids 5 %/Dextrose 20 % 1,000 ml @ 60 mls/hr IV .[id number] [facility] Rx#: [id number] Norepinephrine 32 mg In 3.211 Sodium Chloride 0.9% 218 ml @ 0.08 MCG/KG/MIN 3. 653 mls/hr IV .Q24H [facility] Rx#:[id number] Norepinephrine 4 mg In 258.114 12.521 Sodium Chloride 0.9% 250 ml @ 0.03 MCG/KG/MIN 10. 733 mls/hr IV .[id number] [facility] Rx#:[id number] Output: Drainage 1200 Mid Abdomen 1200 Urine 425 555 365 Stool 650 Other: Voiding Method Indwelling Catheter Indwelling Catheter Indwelling Catheter ABP, PAP, CO, CI - Last Documented Arterial Blood Pressure 91/88 - Exam GENERAL DESCRIPTION: Middle-age man lying in bed in no distress RESPIRATORY SYSTEM: Unlabored breathing , decreased intensity of breath sounds HEART: S1 S2 regular rate and rhythm , ABDOMEN: Soft , no tenderness - Labs CBC & Chem 7: 03/10/24 05:25 03/10/24 05:25 Labs: Abnormal Lab Results - Last 24 Hours (Table) 03/08/24 03/09/24 Range/Units 17:40 05:34 Sodium 135 L (137-145) mmol/L Carbon Dioxide 37 H (22-30) mmol/L Creatinine 0.41 L (0.66-1.25) mg/dL Glucose 107 H (74-99) mg/dL POC Glucose (mg/dL) 129 H (70-110) mg/dL Calcium 8.3 L (8.4-10.2) mg/dL Assessment and Plan (1) Pneumonia Current Visit: No Status: Acute Code(s): J18.9 - PNEUMONIA, UNSPECIFIED ORGANISM SNOMED Code(s): 207604483 (2) Sepsis Current Visit: No Status: Acute Code(s): A41.9 - SEPSIS, UNSPECIFIED ORGANISM SNOMED Code(s): 80425043 Plan: 1patient presented to hospital with sepsis in this patient who did have a low- grade fever elevated white count tachycardia meeting criteria for SIRS source likely pneumonia at this patient presenting with increasing shortness of breath cough with evidence of right-sided infiltrate, patient has been admitted to the hospital and will need to cover for resistant gram-positive as well as gram- negative 2-patient is status post bronchoscopy and lavage completed on 03/02/2024 cultures currently growing Pseudomonas that is resistant to cefepime, 3-patient is afebrile white count is normal, 4- patient to continue treatment with Zosyn to finish a 10-day course of therapy and monitor clinical course closely Dictation was produced using [employer] dictation software. please excuse any grammatical, word or spelling errors. Time with Patient: Less than 30
--- NOTE | 2024-03-10 11:41 | P.PN ---
Subjective Progress Note Date: 03/10/24 Principal diagnosis: Acute hypoxic and hypercapnic respiratory failure requiring intubation on 02/26/2024, tracheostomy on 03/05/2024 Patient is a 48-year-old male with complex past medical history including CVA, previous DVTs, right BKA, cardiac arrest in 2021, Crohn's disease, enterocutaneous fistulas, previous bowel resection, ventilator dependent respiratory failure, previous tracheostomy and reversal. Recently was admitted 12/13/2023 through 12/25/2023 for pneumonia and respiratory failure due to mucous plugging. He was intubated and placed on mechanical ventilator for approximately 6 days. He did have a bronchoscopy with BAL, microbiology positive for haemophilus influenza. Eventually, discharged home, and returned 01/02/24 for GIB from his ostomy. Was reintubated and did spend some time on the ventilator for reccurent pneumonia and mucous plugging. During this time, had multiple bronchoscopies with BAL, once on 12/31/2023 and again on 01/03/2024, isolated organisms including MRSA and Pseudomonas. Patient was eventually discharged back home on 01/16/2024. More recently, patient had an ER visit for increased work of breathing on February 22, and the patient was sent home. Returned for similar symptoms yesterday afternoon. Chest x-ray done on [facility] [place] showing cardiomegaly with pulmonary vascular congestion and questionable right lower lobe infiltrate or effusion. CBC: WBC count 11.2, hemoglobin 10.5, hematocrit 37.3, platelets 315. CMP: Sodium 138, potassium 4.8, chloride 97, serum bicarb 39, BUN 23, creatinine 0.45, glucose 103. Lactic 1. LFTs unremarkable. Troponin less than 0.012. I am evaluating this patient emergency department, he is currently unresponsive, to even painful stimuli. He is on a 15 L nonrebreather. SpO2 88%. Diminished breath sounds on the right Will place this patient on BiPAP with initial settings 16/5 FiO2 to be titrated accordingly. Will get a stat ABG. We will repeat chest x-ray. I did talk to the patient's son, Alan, he is adamant that the patient remain a full code, would want the patient intubated if necessary. On reassessment in the emergency department, patient remained on BiPAP with set tings 16/5 100%. He remains unresponsive to painful stimuli. Now only achieving tidal volumes ranging from 100 to 200 cc. Unfortunately, we were not able to to get an initial blood gas. I recommended that the patient be moved to the trauma bay and intubated by the PRODUCTION CONTROL SCHEDULER. Follow-up chest x-ray showing the endotracheal tube in appropriate position above the avery. Orogastric tube coursing below the diaphragm. Initial ventilator settings include assist- control, respiratory rate 20, tidal volume 500, FiO2 100%, PEEP of 5. Currently, patient is fairly asynchronous with the ventilator and he is biting the tube. There are copious amounts of blood-tinged sputum in the ET tube. Elevated peak airway pressures of 45. Static pressure 32. The nurses are working on appropriately sedating the patient with propofol. Postintubation, the patient did become hypotensive, currently receiving his second liter of normal saline. Will also start the patient on norepinephrine to maintain a MAP of grea ter than 65 mmHg. I did insert a left femoral arterial line. Following this, we did obtain an ABG showing profound hypercapnic and hypoxic respiratory failure. PaO2 of 89, pCO2 98, pH of 7.11. Appropriate ventilator adjustments were made including increasing the rate to 26 and PEEP can be increased to 8. Patient may eventually need repeat bronchoscopy with BAL. Case will be discussed with Dr. Munoz. Patient is still waiting for a bed in the intensive care unit. I did call and update patient's son Alan about his change in clinical condition. On 03/07/2024, the patient is awake and alert and the patient is currently off propofol. The patient is still on the mechanical ventilator assist-control mode rate of 16, tidal volume of 500, FiO2 50% with a PEEP of 6. Calm and comfortable and breathing comfortable. No significant secretions through the tracheostomy tube. Remains on IV Zosyn. He does have pseudomonal pneumonia for which she is on IV Zosyn based on antibiotic sensitivities. Remains on TPN and this was increased up to 60 cc an hour. Remains on anticoagulation with Lovenox 80 mg subcu every 12 hours. Ileostomy is still active and the patient is producing approximately 1000 cc of gastric output over the past 8 hours. Fluid balance -600 cc over the past 24 hours. White cell count is at 4.9 with a hemoglobin 8.8 and a platelet count of 255. BUN is 10 with a creatinine of 0.4 and the sodium is at 137 and a potassium level is at 4.1. Awake and alert and communicating. Profound weakness of lower extremities along with significant muscle atrophy. On 03/08/2024, the patient is on a T-piece at 40% FiO2. No significant respiratory secretions., Comfortable and awake and communicating. He is asking for some oral intake of food. No respiratory difficulties. Remains on TPN at rate of 60 cc an hour. Ileostomy output has been 1500 over the past 8 hours. Fluid balance is 0. Remains on low-dose norepinephrine 0.04 mcg/kg/min. The white cell count of 5 with a hemoglobin 8.3 and a platelet count of 236. BUN is 8 with a creatinine of 0.37 and sodium levels at 137. He remains on IV Zosyn regarding his pseudomonal pneumonia. Chest x-ray findings are also stable. Patient was evaluated today on 03/09/2024, patient remains on T-piece, at 35% FiO2, seems to be fairly comfortable, does not seem to be in any distress, he is awake, communicating, does not seem to be in distress, still on TPN, 60 mL/h, patient is receiving treatment for pseudomonal infection/pneumonia and he is on Zosyn. Patient is to have a swallow evaluation today and possibly allow oral feeding. His tracheostomy was placed on 03/05, patient is still requiring low- dose norepinephrine at 0.01 mcg/kg/min. Basic metabolic profile is normal, bicarb is 37 BUN is 9 creatinine 0.41 chest x-ray continues show interstitial opacities with slight improvement specially in the right and left basilar areas Patient was evaluated today on 03/06/2024 remains in the ICU remains on T-piece at 28% FiO2 patient passed his swallow evaluation yesterday and now he is allowed to have oral feedings, in the meantime he is on TPN at 85 cc/h he is off norepinephrine since 5 AM this morning. Remains on Zosyn for his pseudomonal infection cough seems to be deflated for him to swallow and tolerate oral diet. Not much has happened in the last 24 hours otherwise. Labs were reviewed WBC count is 4.3 hemoglobin 9.3 basic metabolic profile is normal renal profile is normal Objective - Vital Signs Vital signs: Vital Signs Temp 99.1 F 03/10/24 08:30 Pulse 87 03/10/24 11:15 Resp 13 03/10/24 11:15 BP 93/58 03/10/24 11:15 Pulse Ox 95 03/10/24 11:15 FiO2 35 03/10/24 08:30 Intake & Output 03/09/24 03/10/24 03/10/24 18:59 06:59 18:59 Intake Total 9349.749 6845.138 655 Output Total 3202 980 7153 Balance -658.208 964.138 -1100 Weight 93.9 kg Intake: IV 1100 1290 415 Fat Emulsion 20% 250 ml 105 In Empty Bag 1 bag @ 21 mls/hr IV Q72H COUNT INCLUDES [facility] Rx#: [id number] KVO 240 140 Magnesium Sulfate-D5w Pmx 100 1 gm In Dextrose/Water 1 100ml.bag @ 100 mls/hr IVPB ONCE ONE Rx#: [id number] Magnesium Sulfate-D5w Pmx 100 1 gm In Dextrose/Water 1 100ml.bag @ 100 mls/hr IVPB Q1H COUNT INCLUDES THE [facility] Rx#: [id number] Mvi, Adult No.4 with Vit 660 480 K 10 ml Trace (Conc-1Ml/ Dose) 1 ml Sodium Acetate 40 meq Potassium Acetate 50 meq Calcium Gluconate 1 gm Magnesium Sulfate gm 1 gm Potassium Phosphate 21 mmol In Amino Acids 5 %/Dextrose 20 % 1,000 ml @ 60 mls/hr IV .[id number] COUNT INCLUDES THE [facility] Rx#: [id number] Mvi, Adult No.4 with Vit 340 340 K 10 ml Trace (Conc-1Ml/ Dose) 1 ml Sodium Chloride 4Meq/ml Vial 44 meq Potassium Acetate 50 meq Calcium Gluconate 1 gm Magnesium Sulfate gm 1 .25 gm Potassium Phosphate 21 mmol In Amino Acids 5 %/Dextrose 20 % 1,000 ml @ 85 mls/hr IV .BY DURATION COUNT INCLUDES THE [facility] Rx#: [id number] Piperacillin-Tazobactam 3 100 125 75 .375 gm In Sodium Chloride 0.9% 100 ml @ 25 mls/hr IVPB Q8H COUNT INCLUDES THE [facility] Rx#: [id number] Intake, IV Titration 136.792 49.138 Amount Norepinephrine 4 mg In 36.792 49.138 Sodium Chloride 0.9% 250 ml @ 0.03 MCG/KG/MIN 10. 733 mls/hr IV .[id number] COUNT INCLUDES THE [facility] Rx#:[id number] Piperacillin-Tazobactam 3 100 .375 gm In Sodium Chloride 0.9% 100 ml @ 25 mls/hr IVPB Q8H COUNT INCLUDES THE [facility] Rx#: [id number] Oral 240 Output: Urine 745 375 205 Stool 1150 1550 Other: Voiding Method Indwelling Catheter Indwelling Catheter ABP, PAP, CO, CI - Last Documented Arterial Blood Pressure 91/88 - Exam GENERAL: A 48-year-old male patient, currently has a tracheostomy tube 35% T- piece Head exam was generally normal. There was no scleral icterus or corneal arcus. Mucous membranes were moist. Tracheostomy is intact HEENT: No scleral icterus. No conjunctival pallor. Normocephalic, atraumatic. CARDIOVASCULAR: S1 and S2 present. No murmurs, rubs, or gallops. PULMONARY: Diminished breath sounds were bilaterally. No wheezes rhonchi or crackles ABDOMEN: Soft, nontender, nondistended, normoactive bowel sounds. No palpable organomegaly. Functioning ileostomy. 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 EXTREMITIES: No cyanosis, clubbing, or pedal edema. Right below-knee amputation is noted. NEUROLOGICAL: Profound weakness in all 4 extremities, weak cough, extensive muscle atrophy in all 4 extremities. Arousable and awake and follows simple commands and communicates. SKIN: No rashes. Left chest PICC line. - Labs CBC & Chem 7: 03/10/24 05:25 03/10/24 05:25 Labs: Abnormal Lab Results - Last 24 Hours (Table) 03/09/24 03/09/24 03/10/24 Range/Units 17:06 23:43 05:25 RBC (4.30-5.90) m/uL Hgb (13.0-17.5) gm/dL Hct (39.0-53.0) % MCHC (31.0-37.0) g/dL RDW (11.5-15.5) % Sodium 133 L (137-145) mmol/L Carbon Dioxide 31 H (22-30) mmol/L Creatinine 0.45 L (0.66-1.25) mg/dL Glucose 129 H (74-99) mg/dL POC Glucose (mg/dL) 118 H 124 H (70-110) mg/dL 03/10/24 03/10/24 Range/Units 05:25 05:58 RBC 3.54 L (4.30-5.90) m/uL Hgb 9.3 L (13.0-17.5) gm/dL Hct 30.9 L (39.0-53.0) % MCHC 30.1 L (31.0-37.0) g/dL RDW 16.9 H (11.5-15.5) % Sodium (137-145) mmol/L Carbon Dioxide (22-30) mmol/L Creatinine (0.66-1.25) mg/dL Glucose (74-99) mg/dL POC Glucose (mg/dL) 127 H (70-110) mg/dL Assessment and Plan Assessment: Impression: Acute hypoxic and hypercapnic respiratory failure, requiring mechanical intubation on 02/26/24. 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 Sepsis/septic shock secondary to above, recurrent pneumonia, currently low-dose norepinephrine Crohn's disease, with previous complication of bowel perforation s/p colectomy and diverting ileostomy. The patient also has had previous history of abdominal wall bleeding there is currently inactive and stable. The patient has a high output ileostomy TPN for nutritional support Electrolyte imbalance at time of admission including hyponatremia, hypokalemia, hypophosphatemia, hypomagnesemia and hyperphosphatemia, all resolved Tracheobronchomalacia History of DVT, on therapeutic dose of Lovenox CVA/TIA, with residual left-sided weakness Right BKA History of asystole/cardiac arrest in 2021 Plan: Patient to T-piece Patient to be allowed to eat with cuff deflated Patient to continue on TPN Continue Zosyn Continue GI and DVT prophylaxis, patient is on Lovenox Continue bronchodilators Will ask show oncology social worker to consider plans for discharge in the next few days. S Time with Patient: Less than 30
[2024-03-10 11:51] LABS: Glucose,Whole Blood 122 mg/dL (70-110)
[2024-03-10] MEDS: HYDROCORTISONE SUCCINATE 100 MG/2 ML VIAL IV SCH (15:38)
[2024-03-10 18:00] LABS: Glucose,Whole Blood 127 mg/dL (70-110)
--- NOTE | 2024-03-10 22:34 | PN ---
PROGRESS NOTE DATE OF SERVICE: 03/10/2024 SUBJECTIVE: This is a 48-year-old gentleman, who was admitted with Pseudomonas pneumonia and sepsis, acute hypoxic respiratory failure. The patient had tracheostomy. The patient had a barium video fluoroscopic swallow yesterday, which showed no penetration or aspiration. PAST MEDICAL HISTORY: Reviewed. REVIEW OF SYSTEMS: A 14-point review of systems is negative except as mentioned earlier. CURRENT MEDICATIONS: Reviewed. PHYSICAL EXAMINATION: VITAL SIGNS: Pulse is 98, blood pressure 106/69, respirations 14. HEENT: Conjunctivae normal. NECK: Tracheostomy. CARDIOVASCULAR: S1, S2. RESPIRATIONS: A few scattered rhonchi. ABDOMEN: Soft, nontender. LABORATORY DATA: Reviewed. Cortisol is 2.5. ASSESSMENT: 1. Pseudomonas pneumonia with possible sepsis with acute hypoxic respiratory failure with right lower lobe pneumonia present on admission, status post mechanical ventilation. 2. Status post tracheostomy. 3. Recurrent mucus plugging. 4. History of deep venous thrombosis and right below-knee amputation. 5. History of Crohn disease with previous bowel perforation. 6. 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 7. Profound immunosuppression. 8. Protein-calorie malnutrition, on PPN. 9. History of previous cardiac arrest in 2021. 10.History of methicillin-resistant Staphylococcus aureus. 11.Multiple complex medical issues. RECOMMENDATIONS AND DISCUSSION: Recommend to continue current management and continue symptomatic treatment. Otherwise, at this time I would recommend current medications. We will initiate some hydrocortisone. Guarded prognosis. Further recommendations to follow. MMODL / IJN: [id number] /
--- NOTE | 2024-03-10 22:58 | P.PN ---
Subjective SURGICAL PROGRESS NOTE CHIEF COMPLAINT: Respiratory failure HISTORY OF PRESENT ILLNESS: Patient is status post tracheostomy placement yesterday. Patient has some mild oozing around the trach site. Otherwise no issues with trach currently. Afebrile. Vital stable. WBC 4.9 Hgb 9.1 platelets 258 PHYSICAL EXAM: VITAL SIGNS: Reviewed. GENERAL: no acute distress. HEENT: Tracheostomy site with small amount of blood oozing. ASSESSMENT: 1. Acute hypoxic and hypercapnic respiratory failure. Patient having difficulty weaning from the vent. Status post tracheostomy placement 2. Tracheal stenosis. Prior history of tracheostomy PLAN: -Continue supportive care -Continue ICU management Physician Fire Prevention Engineer note has been reviewed by physician. Signing provider agrees with the documented findings, assessment, and plan of care. Objective - Vital Signs Vital signs: Vital Signs Temp 98.0 F 03/10/24 20:00 Pulse 80 03/10/24 21:30 Resp 20 03/10/24 21:30 BP 130/72 03/10/24 21:30 Pulse Ox 94 L 03/10/24 21:30 FiO2 28 03/10/24 20:00 Intake & Output 03/10/24 03/10/24 03/11/24 06:59 18:59 06:59 Intake Total 0657.766 3162 215 Output Total 375 3005 110 Balance 964.138 -1470 105 Intake: IV 1290 1295 215 Fat Emulsion 20% 250 ml 105 In Empty Bag 1 bag @ 21 mls/hr IV Q72H [facility] Rx#: [id number] KVO 140 100 20 Magnesium Sulfate-D5w Pmx 100 1 gm In Dextrose/Water 1 100ml.bag @ 100 mls/hr IVPB ONCE ONE Rx#: [id number] Mvi, Adult No.4 with Vit 480 K 10 ml Trace (Conc-1Ml/ Dose) 1 ml Sodium Acetate 40 meq Potassium Acetate 50 meq Calcium Gluconate 1 gm Magnesium Sulfate gm 1 gm Potassium Phosphate 21 mmol In Amino Acids 5 %/Dextrose 20 % 1,000 ml @ 60 mls/hr IV .[id number] [facility] Rx#: [id number] Mvi, Adult No.4 with Vit 340 1020 170 K 10 ml Trace (Conc-1Ml/ Dose) 1 ml Sodium Chloride 4Meq/ml Vial 44 meq Potassium Acetate 50 meq Calcium Gluconate 1 gm Magnesium Sulfate gm 1 .25 gm Potassium Phosphate 21 mmol In Amino Acids 5 %/Dextrose 20 % 1,000 ml @ 85 mls/hr IV .BY DURATION [facility] Rx#: [id number] Piperacillin-Tazobactam 3 125 175 25 .375 gm In Sodium Chloride 0.9% 100 ml @ 25 mls/hr IVPB Q8H [facility] Rx#: [id number] Intake, IV Titration 49.138 Amount Norepinephrine 4 mg In 49.138 Sodium Chloride 0.9% 250 ml @ 0.03 MCG/KG/MIN 10. 733 mls/hr IV .[id number] [facility] Rx#:[id number] Oral 240 Output: Urine 375 455 110 Stool 2550 Other: Voiding Method Indwelling Catheter Indwelling Catheter Indwelling Catheter ABP, PAP, CO, CI - Last Documented Arterial Blood Pressure 91/88 - Exam gen: nad cv: rrr pul: 5LNC, non distressed abd: softn, non distended, non tender to palpation, no guarding or rebound tenderness - Labs CBC & Chem 7: 03/10/24 05:25 03/10/24 05:25 Labs: Abnormal Lab Results - Last 24 Hours (Table) 03/09/24 03/10/24 03/10/24 Range/Units 23:43 05:25 05:25 RBC 3.54 L (4.30-5.90) m/uL Hgb 9.3 L (13.0-17.5) gm/dL Hct 30.9 L (39.0-53.0) % MCHC 30.1 L (31.0-37.0) g/dL RDW 16.9 H (11.5-15.5) % Sodium 133 L (137-145) mmol/L Carbon Dioxide 31 H (22-30) mmol/L Creatinine 0.45 L (0.66-1.25) mg/dL Glucose 129 H (74-99) mg/dL POC Glucose (mg/dL) 124 H (70-110) mg/dL Triglycerides 199.00 H (0.00-149.00) mg/dL Cortisol 2.5 L (3.1-22.4) UG/DL 03/10/24 03/10/24 03/10/24 Range/Units 05:58 11:48 17:58 RBC (4.30-5.90) m/uL Hgb (13.0-17.5) gm/dL Hct (39.0-53.0) % MCHC (31.0-37.0) g/dL RDW (11.5-15.5) % Sodium (137-145) mmol/L Carbon Dioxide (22-30) mmol/L Creatinine (0.66-1.25) mg/dL Glucose (74-99) mg/dL POC Glucose (mg/dL) 127 H 122 H 127 H (70-110) mg/dL Triglycerides (0.00-149.00) mg/dL Cortisol (3.1-22.4) UG/DL Assessment and Plan Assessment: 48 yo male s/p hypoxic respiratory failure requiring tracheostomy s/p tracheostomy creation -wean to trach mask trach sutures can come out 10 days after surgery, unless warranted Time with Patient: Less than 30
[2024-03-11 00:22] LABS: Glucose,Whole Blood 146 mg/dL (70-110)
[2024-03-11 06:21] LABS: Glucose,Whole Blood 184 mg/dL (70-110)
[2024-03-11] MEDS: IPRATROPIUM-ALBUTEROL 3 ML NEB INHALATION SCH (08:42)
[2024-03-11 09:44] LABS: African American GFR (CKD) >90 (>60 ml/min/1.73 sqM); Anion Gap 3 mmol/L; Blood Urea Nitrogen 13 mg/dL (9-20); Calcium 8.9 mg/dL (8.4-10.2); Carbon Dioxide 29 mmol/L (22-30); Chloride 101 mmol/L (98-107); Glucose 161 mg/dL (74-99); Non-African American GFR(CKD) >90 (>60 ml/min/1.73 sqM); Phosphorus 2.5 mg/dL (2.5-4.5); Potassium 4.6 mmol/L (3.5-5.1); Sodium 133 mmol/L (137-145)
--- NOTE | 2024-03-11 10:04 | P.PN ---
Subjective Progress Note Date: 03/11/24 Patient seen and examined at bedside. Out of ICU. Doing well. No complaints this morning. Objective - Vital Signs Vital signs: Vital Signs Temp 98.4 F 03/11/24 03:07 Pulse 82 03/11/24 08:53 Resp 18 03/11/24 03:07 BP 118/76 03/11/24 03:07 Pulse Ox 94 L 03/11/24 08:45 FiO2 28 03/11/24 08:45 Intake & Output 03/10/24 03/11/24 03/11/24 18:59 06:59 18:59 Intake Total 2590.5 545 240 Output Total 3005 200 525 Balance -414.5 345 -285 Intake: IV 1295 545 KVO 100 20 Mvi, Adult No.4 with Vit 1020 425 K 10 ml Trace (Conc-1Ml/ Dose) 1 ml Sodium Chloride 4Meq/ml Vial 44 meq Potassium Acetate 50 meq Calcium Gluconate 1 gm Magnesium Sulfate gm 1 .25 gm Potassium Phosphate 21 mmol In Amino Acids 5 %/Dextrose 20 % 1,000 ml @ 85 mls/hr IV .BY DURATION [facility] Rx#: [id number] Piperacillin-Tazobactam 3 175 100 .375 gm In Sodium Chloride 0.9% 100 ml @ 25 mls/hr IVPB Q8H [facility] Rx#: [id number] Intake, IV Titration 1055.5 Amount Sodium Chloride 4Meq/ml 1055.5 Vial 44 meq Potassium Acetate 50 meq Calcium Gluconate 1 gm Magnesium Sulfate gm 1.25 gm Potassium Phosphate 21 mmol In Amino Acids 5 %/ Dextrose 20 % 1,000 ml @ 85 mls/hr IV .BY DURATION [facility] Rx#:[id number] Oral 240 240 Output: Urine 455 200 175 Stool 2550 350 Other: Voiding Method Indwelling Catheter Indwelling Catheter ABP, PAP, CO, CI - Last Documented Arterial Blood Pressure 91/88 - Constitutional General appearance: Present: cooperative - EENT EENT Comment(s): Trach in place, some mild skin changes below the plastic portion of the tracheostomy device - Labs CBC & Chem 7: 03/10/24 05:25 03/11/24 08:54 Labs: Abnormal Lab Results - Last 24 Hours (Table) 03/10/24 03/10/24 03/10/24 Range/Units 05:25 11:48 17:58 Sodium (137-145) mmol/L Creatinine (0.66-1.25) mg/dL Glucose (74-99) mg/dL POC Glucose (mg/dL) 122 H 127 H (70-110) mg/dL Triglycerides 199.00 H (0.00-149.00) mg/dL Cortisol 2.5 L (3.1-22.4) UG/DL 03/11/24 03/11/24 03/11/24 Range/Units 00:20 06:19 08:54 Sodium 133 L (137-145) mmol/L Creatinine 0.48 L (0.66-1.25) mg/dL Glucose 161 H (74-99) mg/dL POC Glucose (mg/dL) 146 H 184 H (70-110) mg/dL Triglycerides (0.00-149.00) mg/dL Cortisol (3.1-22.4) UG/DL Assessment and Plan Plan: Status post tracheostomy. Appears to be tolerating this well. Continue with pressure relief at the trach site. Continue medical care.
[2024-03-11 11:12] LABS: Glucose,Whole Blood 193 mg/dL (70-110)
--- NOTE | 2024-03-11 11:42 | P.PN ---
Subjective Progress Note Date: 03/11/24 Patient is a 48-year-old male with complex past medical history including CVA, previous DVTs, right BKA, cardiac arrest in 2021, Crohn's disease, enterocutaneous fistulas, previous bowel resection, ventilator dependent respiratory failure, previous tracheostomy and reversal. Recently was admitted 12/13/2023 through 12/25/2023 for pneumonia and respiratory failure due to mucous plugging. He was intubated and placed on mechanical ventilator for approximately 6 days. He did have a bronchoscopy with BAL, microbiology positive for haemophilus influenza. Eventually, discharged home, and returned 01/02/24 for GIB from his ostomy. Was reintubated and did spend some time on the ventilator for reccurent pneumonia and mucous plugging. During this time, had multiple bronchoscopies with BAL, once on 12/31/2023 and again on 01/03/2024, isolated organisms including MRSA and Pseudomonas. Patient was eventually discharged back home on 01/16/2024. More recently, patient had an ER visit for increased work of breathing on February 22, and the patient was sent home. Returned for similar symptoms yesterday afternoon. Chest x-ray done on admission showing cardiomegaly with pulmonary vascular congestion and questionable right lower lobe infiltrate or effusion. CBC: WBC count 11.2, hemoglobin 10.5, hematocrit 37.3, platelets 315. CMP: Sodium 138, potassium 4.8, chloride 97, serum bicarb 39, BUN 23, creatinine 0.45, glucose 103. Lactic 1. LFTs unremarkable. Troponin less than 0.012. I am evaluating this patient emergency department, he is currently unresponsive, to even painful stimuli. He is on a 15 L nonrebreather. SpO2 88%. Diminished breath sounds on the right Will place this patient on BiPAP with initial settings 16/5 FiO2 to be titrated accordingly. Will get a stat ABG. We will repeat chest x-ray. I did talk to the patient's son, Alan, he is adamant that the patient remain a full code, would want the patient intubated if necessary. On reassessment in the emergency department, patient remained on BiPAP with settings 16/5 100%. He remains unresponsive to painful stimuli. Now only achieving tidal volumes ranging from 100 to 200 cc. Unfortunately, we were not able to to get an initial blood gas. I recommended that the patient be moved to the trauma bay and intubated by the [employer]. Follow-up chest x-ray showing the endotracheal tube in appropriate position above the avery. Orogastric tube coursing below the diaphragm. Initial ventilator settings include assist- control, respiratory rate 20, tidal volume 500, FiO2 100%, PEEP of 5. Currently, patient is fairly asynchronous with the ventilator and he is biting the tube. There are copious amounts of blood-tinged sputum in the ET tube. Elevated peak airway pressures of 45. Static pressure 32. The nurses are working on appropriately sedating the patient with propofol. Postintubation, the patient did become hypotensive, currently receiving his second liter of normal saline. Will also start the patient on norepinephrine to maintain a MAP of greater than 65 mmHg. I did insert a left femoral arterial line. Following this, we did obtain an ABG showing profound hypercapnic and hypoxic respiratory failure. PaO2 of 89, pCO2 98, pH of 7.11. Appropriate ventilator adjustments were made including increasing the rate to 26 and PEEP can be increased to 8. Patient may eventually need repeat bronchoscopy with BAL. Case will be discussed with Dr. Munoz. Patient is still waiting for a bed in the intensive care unit. I did call and update patient's son Alan about his change in clinical condition. 02/27/24 - Patient seen at bedside today, in the ICU. He is on day 3 of his hospital stay, admitted on 02/25/24 and in the ICU since 02/26/24. He remains mechanically ventilated intubated since 02/26/24. He remains on assist-control with a rate of 26, volume 500, FiO2 50% (down from 60%) and a PEEP of 8. ABG done today (on 60% FiO2) showed pO2 126, pCO2 35, pH is 7.50, indicating a mixed respiratory and metabolic alkalosis. Abnormality shown on the patient's lab this morning, inconsistent and drastic changes from previous labs. Will perform a redraw today to get a better idea on how the labs are changed. He remains on vasopressin 0.03 units/min, Levophed at 0.07 mcg/kg/min (6.8 mcg/min), propofol 75 mcg/kg/min, receiving TPN at 30 cc/h (which is goal). Patient's blood pressure today 131/53. Additionally, patient receiving cefepime and vancomycin secondary to leukocytosis and a Tmax on 02/26/24 of 100.5 F. Sputum culture currently pending. Chest x-ray from this morning showed improving right perihilar and lower lobe infiltrate. Additionally, patient is currently receiving TPN ([employer]im[employer]) at 30 cc/h which is goal for dietitian. 02/28/24 - Patient seen at bedside today, in the ICU. He is on day 4 of his hospital stay, admitted on 02/25/24 and in the ICU since 02/26/24. He remains intubated and mechanically ventilated since 02/26/24. He remains on assist- control with a rate of 25, [place] 500, FiO2 40% and PEEP of 8. ABG done today (while on 100% FiO2) showed pO2 255, pCO2 37, pH 7.44 indicating slight respiratory alkalosis. The abnormalities noted on the patient's labs from yesterday were rechecked on a couple of occasion and seem to be accurate. This morning labs showed WBC 5.2, hemoglobin 8.2, sodium 139, potassium 3.8, chloride 114, BUN 10, creatinine 0.44, calcium 8.2, phosphorus 2.6, magnesium 2.0. Patient received supplementation with sodium phosphate, potassium chloride and magnesium sulfate. He remains on Levophed 0.07 mcg/kg/min (7 mcg/min), propofol 75 mcg/kg/min, normal saline at 30 cc/h and TPN at 30 cc/h (which is goal). Additionally, patient remains on cefepime and vancomycin; sputum culture is fi nal for Pseudomonas aeruginosa that any resistance. Blood cultures continue to be pending at this time. Chest x-ray from this morning continue show right lower lobe infiltrate. 02/29/24 - Patient seen at bedside today, in the ICU. He is on day 5 of his hospital stay, admitted on 02/25/24 and then the ICU since 02/26/24. He remains intubated mechanically ventilated since 02/26/24. He remains on assist-control with a rate of 26, volume 500, FiO2 50%, PEEP of 8. ABG completed today showed pO2 96, pCO2 30, pH 7.51 indicating a respiratory and metabolic alkalosis. On labs drawn today patient's WBC is 4.1, hemoglobin 8.0, sodium 138, chloride 114, potassium 3.9, BUN 13, creatinine 0.46, phosphorus 2.2, magnesium 1.9. Patient received 1 g magnesium sulfate this morning and 15 mmol sodium phosphate. He remains on propofol 75 mcg/mg/min, Levophed at 0.03 mcg/kg/min (~3 mcg/min) and TPN at 30 cc/h (which is goal). He remains on 0.9% normal saline at 20 cc/h, and cefepime 2 g every 8 hours. Blood cultures remain pending at this time. Chest x-ray shows more prominent small bilateral pleural effusions and associated bibasilar opacities. The patient is seen today March 01, 2024 in follow-up on the regular medical floor. He remains intubated on the mechanical ventilator and assist-control mode with a rate of 26, tidal volume 500, FiO2 50% and a PEEP of 8. Morning blood gases revealed a PaO2 111, pCO2 22 and a pH of 7.48. He is currently on propofol at 55 mcg/kg/min. Receiving TPN at 30 mL/h. Normal saline at KVO. He remains on cefepime for pseudomonal bronchial infection. White count 5.2. Hemoglobin 8.4. Platelets 184. Sodium 136. Potassium 3.5. Bicarb 20. BUN 13. Creatinine 0.53. Glucose 87. He is afebrile. Hemodynamically stable. Chest x-ray reveals persistent small bilateral effusions. He is continued on DuoNebs. Lovenox for DVT prophylaxis. The patient is seen today March 11, 2024 in follow-up on the selective care unit. He was recently transferred back out of the intensive care unit. He did undergo tracheostomy tube placement on 03/05/2024. He is currently awake and alert in no acute distress. He is maintaining good O2 saturations in the 90s on 28% FiO2 via T-piece. He is afebrile. Hemodynamically stable. Currently has a speaking valve on. He did pass a swallow evaluation and is tolerating a chopped food diet. Continues to be nurse with TPN at 85 mL/h. Bronchial lavage cultures from March 02, 2024 were positive for Pseudomonas aeruginosa. He remains on Zosyn per ID service. Sodium 133. Potassium 4.6. Bicarb 29. BUN 13. Creatinine 0.48. Glucose 161. He remains on bronchodilators, Solu-Cortef. Therapeutic Lovenox. Objective - Vital Signs Vital signs: Vital Signs Temp 98.4 F 03/11/24 08:00 Pulse 82 03/11/24 08:53 Resp 20 03/11/24 08:00 BP 110/56 03/11/24 08:00 Pulse Ox 94 L 03/11/24 08:45 FiO2 28 03/11/24 08:45 Intake & Output 03/10/24 03/11/24 03/11/24 18:59 06:59 18:59 Intake Total 2590.5 545 240 Output Total 3005 200 525 Balance -414.5 345 -285 Intake: IV 1295 545 KVO 100 20 Mvi, Adult No.4 with Vit 1020 425 K 10 ml Trace (Conc-1Ml/ Dose) 1 ml Sodium Chloride 4Meq/ml Vial 44 meq Potassium Acetate 50 meq Calcium Gluconate 1 gm Magnesium Sulfate gm 1 .25 gm Potassium Phosphate 21 mmol In Amino Acids 5 %/Dextrose 20 % 1,000 ml @ 85 mls/hr IV .BY DURATION [facility] Rx#: [id number] Piperacillin-Tazobactam 3 175 100 .375 gm In Sodium Chloride 0.9% 100 ml @ 25 mls/hr IVPB Q8H [facility] Rx#: [id number] Intake, IV Titration 1055.5 Amount Sodium Chloride 4Meq/ml 1055.5 Vial 44 meq Potassium Acetate 50 meq Calcium Gluconate 1 gm Magnesium Sulfate gm 1.25 gm Potassium Phosphate 21 mmol In Amino Acids 5 %/ Dextrose 20 % 1,000 ml @ 85 mls/hr IV .BY DURATION [facility] Rx#:[id number] Oral 240 240 Output: Urine 455 200 175 Stool 2550 350 Other: Voiding Method Indwelling Catheter Indwelling Catheter Indwelling Catheter ABP, PAP, CO, CI - Last Documented Arterial Blood Pressure 91/88 - Exam GENERAL EXAM: Alert, pleasant 48-year-old male, on 28% FiO2 via T-piece, comfortable in no apparent distress. HEAD: Normocephalic. EYES: Normal reaction of pupils, equal size. NOSE: Clear with pink turbinates. THROAT: No erythema or exudates. NECK: Tracheostomy tube secured in place. No masses, no JVD. CHEST: No chest wall deformity. LUNGS: Equal air entry with few scattered rhonchi. CVS: S1 and S2 normal with no audible murmur, regular rhythm. ABDOMEN: Functioning ileostomy. The patient also has evidence of enterocutaneous fistula over the anterior abdominal wall. SPINE: No scoliosis or deformity SKIN: No rashes CENTRAL NERVOUS SYSTEM: No focal deficits, tone is normal in all 4 extremities. EXTREMITIES: PICC line in place. Profound weakness in all 4 extremities, extensive muscle atrophy in all 4 extremities. Peripheral pulses are intact. - Labs CBC & Chem 7: 03/10/24 05:25 03/11/24 08:54 Labs: Abnormal Lab Results - Last 24 Hours (Table) 03/10/24 03/10/24 03/10/24 Range/Units 05:25 11:48 17:58 Sodium (137-145) mmol/L Creatinine (0.66-1.25) mg/dL Glucose (74-99) mg/dL POC Glucose (mg/dL) 122 H 127 H (70-110) mg/dL Triglycerides 199.00 H (0.00-149.00) mg/dL Cortisol 2.5 L (3.1-22.4) UG/DL 03/11/24 03/11/24 03/11/24 Range/Units 00:20 06:19 08:54 Sodium 133 L (137-145) mmol/L Creatinine 0.48 L (0.66-1.25) mg/dL Glucose 161 H (74-99) mg/dL POC Glucose (mg/dL) 146 H 184 H (70-110) mg/dL Triglycerides (0.00-149.00) mg/dL Cortisol (3.1-22.4) UG/DL 03/11/24 Range/Units 11:07 Sodium (137-145) mmol/L Creatinine (0.66-1.25) mg/dL Glucose (74-99) mg/dL POC Glucose (mg/dL) 193 H (70-110) mg/dL Triglycerides (0.00-149.00) mg/dL Cortisol (3.1-22.4) UG/DL Assessment and Plan Assessment: Acute hypoxic and hypercapnic respiratory failure, requiring mechanical intubation on 02/26/24, bronchial wash cultures from 03/02/2024 were positive for Pseudomonas aeruginosa, tracheostomy tube placed 03/05/2024, currently on T- piece with FiO2 at 28% Recent history of recurrent ventilator dependent respiratory failure, secondary to pneumonia and mucous plugging Cardiogenic shock secondary to sepsis/respiratory failure recovered Sepsis secondary to above, recovered Leukocytosis, resolved Hx of Crohn's disease, with previous complication of bowel perforation s/p colectomy and diverting ileostomy Hyperphosphatemia, resolved Hypokalemia, resolved Hyponatremia, resolved Hypophosphatemia, resolved Hypomagnesemia, resolved Previous tracheostomy and reversal, with tracheal stenosis Tracheobronchomalacia History of DVT, on therapeutic dose of Lovenox CVA/TIA, with residual left-sided weakness Right BKA Cardiac arrest in 2021 Plan: The patient was seen and evaluated Labs and medications reviewed Stable and on 28% FiO2 via t-piece He passed a swallow evaluation Tolerating a chopped diet Continue TPN per dietary recommendations Continue bronchodilators Therapeutic Lovenox We will continue to follow I have personally seen and examined the patient, performed the documentation and the assessment and plan as written. Number of minutes spent on the visit: 10 Dictation was produced using [employer] dictation software. Please excuse any grammatical, word or spelling errors.
--- NOTE | 2024-03-11 15:00 | P.PN ---
Subjective Progress Note Date: 03/10/24 Principal diagnosis: Reason for follow-up is pneumonia Patient is a 48-year-old male with a past medical history significant for CVA TIA DVT bones disease multiple abdominal surgeries did have a enterocutaneous fistula recent admission for pneumonia has been brought to the hospital with worsening shortness of with hypoxemia patient did have worsening respiratory status requiring intubation and admission to the ICU. On today's evaluation that is 03/10/2024, Patient is afebrile this morning patient denies having any chest pain shortness of breath or cough, the patient is currently breathing comfortably on the trach collar patient denies any abdominal pain, no nausea no vomiting. Patient white count is 4.3, creatinine 0.45 Objective - Vital Signs Vital signs: Vital Signs Temp 98.4 F 03/10/24 12:00 Pulse 88 03/10/24 15:00 Resp 20 03/10/24 15:00 BP 101/57 03/10/24 15:00 Pulse Ox 93 L 03/10/24 15:00 FiO2 28 03/10/24 12:00 Intake & Output 03/09/24 03/10/24 03/10/24 18:59 06:59 18:59 Intake Total 2301.262 2195.138 1220 Output Total 8041 882 8725 Balance -658.208 964.138 -1400 Weight 93.9 kg Intake: IV 1100 1290 980 Fat Emulsion 20% 250 ml 105 In Empty Bag 1 bag @ 21 mls/hr IV Q72H [facility] Rx#: [id number] KVO 240 140 40 Magnesium Sulfate-D5w Pmx 100 1 gm In Dextrose/Water 1 100ml.bag @ 100 mls/hr IVPB ONCE ONE Rx#: [id number] Magnesium Sulfate-D5w Pmx 100 1 gm In Dextrose/Water 1 100ml.bag @ 100 mls/hr IVPB Q1H [facility] Rx#: [id number] Mvi, Adult No.4 with Vit 660 480 K 10 ml Trace (Conc-1Ml/ Dose) 1 ml Sodium Acetate 40 meq Potassium Acetate 50 meq Calcium Gluconate 1 gm Magnesium Sulfate gm 1 gm Potassium Phosphate 21 mmol In Amino Acids 5 %/Dextrose 20 % 1,000 ml @ 60 mls/hr IV .[id number] [facility] Rx#: [id number] Mvi, Adult No.4 with Vit 340 765 K 10 ml Trace (Conc-1Ml/ Dose) 1 ml Sodium Chloride 4Meq/ml Vial 44 meq Potassium Acetate 50 meq Calcium Gluconate 1 gm Magnesium Sulfate gm 1 .25 gm Potassium Phosphate 21 mmol In Amino Acids 5 %/Dextrose 20 % 1,000 ml @ 85 mls/hr IV .BY DURATION [facility] Rx#: [id number] Piperacillin-Tazobactam 3 100 125 175 .375 gm In Sodium Chloride 0.9% 100 ml @ 25 mls/hr IVPB Q8H [facility] Rx#: [id number] Intake, IV Titration 136.792 49.138 Amount Norepinephrine 4 mg In 36.792 49.138 Sodium Chloride 0.9% 250 ml @ 0.03 MCG/KG/MIN 10. 733 mls/hr IV .[id number] [facility] Rx#:[id number] Piperacillin-Tazobactam 3 100 .375 gm In Sodium Chloride 0.9% 100 ml @ 25 mls/hr IVPB Q8H [facility] Rx#: [id number] Oral 240 Output: Urine 745 375 370 Stool 1150 2250 Other: Voiding Method Indwelling Catheter Indwelling Catheter Indwelling Catheter ABP, PAP, CO, CI - Last Documented Arterial Blood Pressure 91/88 - Exam GENERAL DESCRIPTION: Middle-age man lying in bed in no distress RESPIRATORY SYSTEM: Unlabored breathing , decreased intensity of breath sounds HEART: S1 S2 regular rate and rhythm , ABDOMEN: Soft , no tenderness - Labs CBC & Chem 7: 03/10/24 05:25 03/11/24 08:54 Labs: Abnormal Lab Results - Last 24 Hours (Table) 03/09/24 03/09/24 03/10/24 Range/Units 17:06 23:43 05:25 RBC (4.30-5.90) m/uL Hgb (13.0-17.5) gm/dL Hct (39.0-53.0) % MCHC (31.0-37.0) g/dL RDW (11.5-15.5) % Sodium 133 L (137-145) mmol/L Carbon Dioxide 31 H (22-30) mmol/L Creatinine 0.45 L (0.66-1.25) mg/dL Glucose 129 H (74-99) mg/dL POC Glucose (mg/dL) 118 H 124 H (70-110) mg/dL Triglycerides 199.00 H (0.00-149.00) mg/dL Cortisol 2.5 L (3.1-22.4) UG/DL 03/10/24 03/10/24 03/10/24 Range/Units 05:25 05:58 11:48 RBC 3.54 L (4.30-5.90) m/uL Hgb 9.3 L (13.0-17.5) gm/dL Hct 30.9 L (39.0-53.0) % MCHC 30.1 L (31.0-37.0) g/dL RDW 16.9 H (11.5-15.5) % Sodium (137-145) mmol/L Carbon Dioxide (22-30) mmol/L Creatinine (0.66-1.25) mg/dL Glucose (74-99) mg/dL POC Glucose (mg/dL) 127 H 122 H (70-110) mg/dL Triglycerides (0.00-149.00) mg/dL Cortisol (3.1-22.4) UG/DL Assessment and Plan (1) Pneumonia Current Visit: No Status: Acute Code(s): J18.9 - PNEUMONIA, UNSPECIFIED ORGANISM SNOMED Code(s): 011886724 (2) Sepsis Current Visit: No Status: Acute Code(s): A41.9 - SEPSIS, UNSPECIFIED ORGANISM SNOMED Code(s): 27320831 Plan: 1patient presented to hospital with sepsis in this patient who did have a low- grade fever elevated white count tachycardia meeting criteria for SIRS source likely pneumonia at this patient presenting with increasing shortness of breath cough with evidence of right-sided infiltrate, patient has been admitted to the hospital and will need to cover for resistant gram-positive as well as gram-n egative 2-patient is status post bronchoscopy and lavage completed on 03/02/2024 cultures currently growing Pseudomonas that is resistant to cefepime, 3-patient is afebrile white count is normal, 4- patient currently being treated with Zosyn to finish a 10-day course of therapy and continue supportive care Dictation was produced using [employer] dictation software. please excuse any grammatical, word or spelling errors. Time with Patient: Less than 30
--- NOTE | 2024-03-11 15:00 | P.PN ---
Subjective Progress Note Date: 03/11/24 Principal diagnosis: Reason for follow-up is pneumonia Patient is a 48-year-old male with a past medical history significant for CVA TIA DVT bones disease multiple abdominal surgeries did have a enterocutaneous fistula recent admission for pneumonia has been brought to the hospital with worsening shortness of with hypoxemia patient did have worsening respiratory status requiring intubation and admission to the ICU. On today's evaluation that is 03/11/2024, patient did not have any fever and denies any chills, patient is breathing comfortably on trach collar, patient with no chest pain or cough patient did not have any abdominal pain nausea vomiting. Patient did have a creatinine 0.48 no CBC was done today Objective - Vital Signs Vital signs: Vital Signs Temp 98.4 F 03/11/24 08:00 Pulse 82 03/11/24 12:11 Resp 18 03/11/24 11:55 BP 118/58 03/11/24 11:55 Pulse Ox 91 L 03/11/24 11:55 FiO2 28 03/11/24 11:55 Intake & Output 03/10/24 03/11/24 03/11/24 18:59 06:59 18:59 Intake Total 2590.5 545 684 Output Total 3005 200 875 Balance -414.5 345 -191 Intake: IV 1295 545 KVO 100 20 Mvi, Adult No.4 with Vit 1020 425 K 10 ml Trace (Conc-1Ml/ Dose) 1 ml Sodium Chloride 4Meq/ml Vial 44 meq Potassium Acetate 50 meq Calcium Gluconate 1 gm Magnesium Sulfate gm 1 .25 gm Potassium Phosphate 21 mmol In Amino Acids 5 %/Dextrose 20 % 1,000 ml @ 85 mls/hr IV .BY DURATION [facility] Rx#: [id number] Piperacillin-Tazobactam 3 175 100 .375 gm In Sodium Chloride 0.9% 100 ml @ 25 mls/hr IVPB Q8H [facility] Rx#: [id number] Intake, IV Titration 1055.5 Amount Sodium Chloride 4Meq/ml 1055.5 Vial 44 meq Potassium Acetate 50 meq Calcium Gluconate 1 gm Magnesium Sulfate gm 1.25 gm Potassium Phosphate 21 mmol In Amino Acids 5 %/ Dextrose 20 % 1,000 ml @ 85 mls/hr IV .BY DURATION [facility] Rx#:[id number] Oral 240 684 Output: Urine 455 200 175 Stool 2550 700 Other: Voiding Method Indwelling Catheter Indwelling Catheter Indwelling Catheter ABP, PAP, CO, CI - Last Documented Arterial Blood Pressure 91/88 - Exam GENERAL DESCRIPTION: Middle-age man lying in bed in no distress RESPIRATORY SYSTEM: Unlabored breathing , decreased intensity of breath sounds HEART: S1 S2 regular rate and rhythm , ABDOMEN: Soft , no tenderness - Labs CBC & Chem 7: 03/10/24 05:25 03/11/24 08:54 Labs: Abnormal Lab Results - Last 24 Hours (Table) 03/10/24 03/11/24 03/11/24 Range/Units 17:58 00:20 06:19 Sodium (137-145) mmol/L Creatinine (0.66-1.25) mg/dL Glucose (74-99) mg/dL POC Glucose (mg/dL) 127 H 146 H 184 H (70-110) mg/dL 03/11/24 03/11/24 Range/Units 08:54 11:07 Sodium 133 L (137-145) mmol/L Creatinine 0.48 L (0.66-1.25) mg/dL Glucose 161 H (74-99) mg/dL POC Glucose (mg/dL) 193 H (70-110) mg/dL Assessment and Plan (1) Pneumonia Current Visit: No Status: Acute Code(s): J18.9 - PNEUMONIA, UNSPECIFIED ORGANISM SNOMED Code(s): 502165941 (2) Sepsis Current Visit: No Status: Acute Code(s): A41.9 - SEPSIS, UNSPECIFIED ORGANIS M SNOMED Code(s): 21300307 Plan: 1patient presented to hospital with sepsis in this patient who did have a low- grade fever elevated white count tachycardia meeting criteria for SIRS source likely pneumonia at this patient presenting with increasing shortness of breath cough with evidence of right-sided infiltrate, patient has been admitted to the hospital and will need to cover for resistant gram-positive as well as gram- negative 2-patient is status post bronchoscopy and lavage completed on 03/02/2024 cultures currently growing Pseudomonas that is resistant to cefepime, 3-patient is afebrile white count is normal, we will continue with Zosyn to finish a 10-day course of therapy and continue supportive care Dictation was produced using [employer] dictation software. please excuse any grammatical, word or spelling errors. Time with Patient: Less than 30
[2024-03-11] MEDS: [UNRECOGNIZED DRUG - MIXTURE] IV SCH (16:12)
[2024-03-11 16:28] LABS: Glucose,Whole Blood 241 mg/dL (70-110)
[2024-03-11] MEDS: THIAMINE 100 MG TAB PO SCH (16:39)
--- NOTE | 2024-03-11 18:22 | PN ---
PROGRESS NOTE DATE OF SERVICE: 03/11/2024 SUBJECTIVE: This is a 48-year-old gentleman, who was admitted with Pseudomonas pneumonia, sepsis, and hypoxic respiratory failure, also had pneumonia. The patient had tracheostomy. The patient is closely monitored. PT/OT is evaluating the patient. The patient also had. PAST MEDICAL HISTORY: Reviewed. REVIEW OF SYSTEMS: A 14-point review of systems is negative except as mentioned earlier. CURRENT MEDICATIONS: Reviewed. PHYSICAL EXAMINATION: VITAL SIGNS: Pulse 97, blood pressure 119/50, respirations 18. CHEST: Few scattered rhonchi and crackles. ABDOMEN: Soft. NERVOUS SYSTEM: Nonfocal. LABORATORY DATA: Sodium 133, hemoglobin 9.3. Cortisol is 2.5. ASSESSMENT: 1. Pseudomonas pneumonia with possible sepsis, acute hypoxic respiratory failure with right lower lobe pneumonia present on admission, status post mechanical ventilation. 2. Status post tracheostomy. 3. Recurrent mucus plugging. 4. History of DVT and right below-knee amputation. 5. History of Crohn's disease with previous bowel perforation. 6. 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 7. Profound immunosuppression. 8. Protein-calorie malnutrition, on PPN. 9. History of previous cardiac catheterization in 2021. 10.History of MRSA. 11.Multiple complex medical issues. RECOMMENDATIONS: I recommend to continue current management and continue symptomatic treatment. Otherwise, at this time, PT/OT evaluation. DVT prophylaxis. Continue with bronchodilators. Continue with hydrocortisone. Guarded prognosis. Further recommendations to follow. MMODL / IJN: [id number] / MTDD
[2024-03-12 00:15] LABS: Glucose,Whole Blood 260 mg/dL (70-110)
[2024-03-12 06:03] LABS: Glucose,Whole Blood 136 mg/dL (70-110)
[2024-03-12 07:09] LABS: Anisocytosis Slight; Basophils % (A) 1 %; Eosinophils # (A) 0.2 k/uL (0-0.7); Eosinophils % (A) 3 %; HCT 34.9 % (39.0-53.0); HGB 10.1 gm/dL (13.0-17.5); Hypochromasia Marked; Lymphocytes # (A) 2.2 k/uL (1.0-4.8); Lymphocytes % (A) 35 %; MCH 25.7 pg (25.0-35.0); MCHC 29.1 g/dL (31.0-37.0); MCV 88.5 fL (80.0-100.0); Mean Platelet Volume 9.2; Monocytes # (A) 0.2 k/uL (0-1.0); Monocytes % (A) 4 %; Neutrophils # (A) 3.5 k/uL (1.3-7.7); Neutrophils % (A) 56 %; Platelet Count 286 k/uL (150-450); RBC 3.94 m/uL (4.30-5.90); RDW 16.7 % (11.5-15.5); WBC 6.2 k/uL (3.8-10.6)
[2024-03-12 07:20] LABS: Ionized Calcium 5.1 mg/dL (4.5-5.3)
[2024-03-12 07:23] LABS: Phosphorus 2.7 mg/dL (2.5-4.5)
[2024-03-12 07:24] LABS: ALT 23 U/L (4-49); AST 22 U/L (17-59); African American GFR (CKD) >90 (>60 ml/min/1.73 sqM); Albumin 3.6 g/dL (3.5-5.0); Alkaline Phosphatase 76 U/L (38-126); Anion Gap 5 mmol/L; Blood Urea Nitrogen 17 mg/dL (9-20); Calcium 9.3 mg/dL (8.4-10.2); Carbon Dioxide 29 mmol/L (22-30); Chloride 102 mmol/L (98-107); Glucose 153 mg/dL (74-99); Non-African American GFR(CKD) >90 (>60 ml/min/1.73 sqM); Potassium 4.9 mmol/L (3.5-5.1); Sodium 136 mmol/L (137-145); Total Bilirubin 0.3 mg/dL (0.2-1.3); Total Protein 8.4 g/dL (6.3-8.2)
--- NOTE | 2024-03-12 07:54 | XR ---
EXAMINATION TYPE: XR chest 1V portable DATE OF EXAM: 03/12/2024 6:54 AM COMPARISON: 03/09/2024 CLINICAL INDICATION: Male, 48 years old with history of CHF, , FINDINGS: Low lung volumes. Heart borderline to mildly enlarged. Perihilar opacities show some improvement. Mil d patchy bibasilar opacities remain. Tracheostomy cannula. Surgical clips right base of the neck. Lef t CVC tip at the cavoatrial junction. IMPRESSION: Improving perihilar opacities, likely improving pulmonary vascular congestion. Patchy bibasilar opaci ties remain. [facility], , 03/12/2024 7:51 AM
--- NOTE | 2024-03-12 11:01 | P.PN ---
Subjective Progress Note Date: 03/12/24 SURGICAL PROGRESS NOTE CHIEF COMPLAINT: Respiratory failure HISTORY OF PRESENT ILLNESS: Patient is status post tracheostomy placement. Patient currently on a regular medical floor. No new complaints. Afebrile. WBC 6.2 PHYSICAL EXAM: VITAL SIGNS: Reviewed. GENERAL: no acute distress. HEENT: Tracheostomy site with gauze in place. No drainage noted. ASSESSMENT: 1. Acute hypoxic and hypercapnic respiratory failure. Patient having difficulty weaning from the vent. Status post tracheostomy placement 2. Tracheal stenosis. Prior history of tracheostomy PLAN: -Continue pressure relief at trach site with gauze due to skin irritation at trach site Physician Receiver Stocker note has been reviewed by physician. Signing provider agrees with the documented findings, assessment, and plan of care. Objective - Vital Signs Vital signs: Vital Signs Temp 98.3 F 03/12/24 04:00 Pulse 82 03/12/24 07:48 Resp 20 03/12/24 04:00 BP 142/70 03/12/24 04:00 Pulse Ox 96 03/12/24 07:41 FiO2 28 03/12/24 07:41 Intake & Output 03/11/24 03/12/24 03/12/24 18:59 06:59 18:59 Intake Total 1146 222 Output Total 1975 1350 Balance -829 -1350 222 Weight 95.5 kg Intake: Oral 1146 222 Output: Urine 375 400 Stool 1600 950 Other: Voiding Method Indwelling Catheter Indwelling Catheter ABP, PAP, CO, CI - Last Documented Arterial Blood Pressure 91/88 - Labs CBC & Chem 7: 03/12/24 06:47 03/12/24 06:47 Labs: Abnormal Lab Results - Last 24 Hours (Table) 03/11/24 03/11/24 03/12/24 Range/Units 11:07 16:26 00:13 RBC (4.30-5.90) m/uL Hgb (13.0-17.5) gm/dL Hct (39.0-53.0) % MCHC (31.0-37.0) g/dL RDW (11.5-15.5) % Sodium (137-145) mmol/L Creatinine (0.66-1.25) mg/dL Glucose (74-99) mg/dL POC Glucose (mg/dL) 193 H 241 H 260 H (70-110) mg/dL Total Protein (6.3-8.2) g/dL 03/12/24 03/12/24 03/12/24 Range/Units 05:59 06:47 06:47 RBC 3.94 L (4.30-5.90) m/uL Hgb 10.1 L (13.0-17.5) gm/dL Hct 34.9 L (39.0-53.0) % MCHC 29.1 L (31.0-37.0) g/dL RDW 16.7 H (11.5-15.5) % Sodium 136 L (137-145) mmol/L Creatinine 0.51 L (0.66-1.25) mg/dL Glucose 153 H (74-99) mg/dL POC Glucose (mg/dL) 136 H (70-110) mg/dL Total Protein 8.4 H (6.3-8.2) g/dL
[2024-03-12 12:05] LABS: Glucose,Whole Blood 208 mg/dL (70-110)
--- NOTE | 2024-03-12 12:25 | P.PN ---
Subjective Progress Note Date: 03/12/24 Principal diagnosis: Acute hypoxic and hypercapnic respiratory failure requiring intubation on 02/26/2024, tracheostomy on 03/05/2024 Patient is a 48-year-old male with complex past medical history including CVA, previous DVTs, right BKA, cardiac arrest in 2021, Crohn's disease, enterocutaneous fistulas, previous bowel resection, ventilator dependent respiratory failure, previous tracheostomy and reversal. Recently was admitted 12/13/2023 through 12/25/2023 for pneumonia and respiratory failure due to mucous plugging. He was intubated and placed on mechanical ventilator for approximately 6 days. He did have a bronchoscopy with BAL, microbiology positive for haemophilus influenza. Eventually, discharged home, and returned 01/02/24 for GIB from his ostomy. Was reintubated and did spend some time on the ventilator for reccurent pneumonia and mucous plugging. During this time, had multiple bronchoscopies with BAL, once on 12/31/2023 and again on 01/03/2024, isolated organisms including MRSA and Pseudomonas. Patient was eventually discharged back home on 01/16/2024. More recently, patient had an ER visit for increased work of breathing on February 22, and the patient was sent home. Returned for similar symptoms yesterday afternoon. Chest x-ray done on [facility] [place] showing cardiomegaly with pulmonary vascular congestion and questionable right lower lobe infiltrate or effusion. CBC: WBC count 11.2, hemoglobin 10.5, hematocrit 37.3, platelets 315. CMP: Sodium 138, potassium 4.8, chloride 97, serum bicarb 39, BUN 23, creatinine 0.45, glucose 103. Lactic 1. LFTs unremarkable. Troponin less than 0.012. I am evaluating this patient emergency department, he is currently unresponsive, to even painful stimuli. He is on a 15 L nonrebreather. SpO2 88%. Diminished breath sounds on the right Will place this patient on BiPAP with initial settings 16/5 FiO2 to be titrated accordingly. Will get a stat ABG. We will repeat chest x-ray. I did talk to the patient's son, Alan, he is adamant that the patient remain a full code, would want the patient intubated if necessary. On reassessment in the emergency department, patient remained on BiPAP with set tings 16/5 100%. He remains unresponsive to painful stimuli. Now only achieving tidal volumes ranging from 100 to 200 cc. Unfortunately, we were not able to to get an initial blood gas. I recommended that the patient be moved to the trauma bay and intubated by the MARKETING COMMUNICATIONS ASSISTANT. Follow-up chest x-ray showing the endotracheal tube in appropriate position above the aevry. Orogastric tube coursing below the diaphragm. Initial ventilator settings include assist- control, respiratory rate 20, tidal volume 500, FiO2 100%, PEEP of 5. Currently, patient is fairly asynchronous with the ventilator and he is biting the tube. There are copious amounts of blood-tinged sputum in the ET tube. Elevated peak airway pressures of 45. Static pressure 32. The nurses are working on appropriately sedating the patient with propofol. Postintubation, the patient did become hypotensive, currently receiving his second liter of normal saline. Will also start the patient on norepinephrine to maintain a MAP of grea ter than 65 mmHg. I did insert a left femoral arterial line. Following this, we did obtain an ABG showing profound hypercapnic and hypoxic respiratory failure. PaO2 of 89, pCO2 98, pH of 7.11. Appropriate ventilator adjustments were made including increasing the rate to 26 and PEEP can be increased to 8. Patient may eventually need repeat bronchoscopy with BAL. Case will be discussed with Dr. Munoz. Patient is still waiting for a bed in the intensive care unit. I did call and update patient's son Alan about his change in clinical condition. On 03/07/2024, the patient is awake and alert and the patient is currently off propofol. The patient is still on the mechanical ventilator assist-control mode rate of 16, tidal volume of 500, FiO2 50% with a PEEP of 6. Calm and comfortable and breathing comfortable. No significant secretions through the tracheostomy tube. Remains on IV Zosyn. He does have pseudomonal pneumonia for which she is on IV Zosyn based on antibiotic sensitivities. Remains on TPN and this was increased up to 60 cc an hour. Remains on anticoagulation with Lovenox 80 mg subcu every 12 hours. Ileostomy is still active and the patient is producing approximately 1000 cc of gastric output over the past 8 hours. Fluid balance -600 cc over the past 24 hours. White cell count is at 4.9 with a hemoglobin 8.8 and a platelet count of 255. BUN is 10 with a creatinine of 0.4 and the sodium is at 137 and a potassium level is at 4.1. Awake and alert and communicating. Profound weakness of lower extremities along with significant muscle atrophy. On 03/08/2024, the patient is on a T-piece at 40% FiO2. No significant respiratory secretions., Comfortable and awake and communicating. He is asking for some oral intake of food. No respiratory difficulties. Remains on TPN at rate of 60 cc an hour. Ileostomy output has been 1500 over the past 8 hours. Fluid balance is 0. Remains on low-dose norepinephrine 0.04 mcg/kg/min. The white cell count of 5 with a hemoglobin 8.3 and a platelet count of 236. BUN is 8 with a creatinine of 0.37 and sodium levels at 137. He remains on IV Zosyn regarding his pseudomonal pneumonia. Chest x-ray findings are also stable. Patient was evaluated today on 03/09/2024, patient remains on T-piece, at 35% FiO2, seems to be fairly comfortable, does not seem to be in any distress, he is awake, communicating, does not seem to be in distress, still on TPN, 60 mL/h, patient is receiving treatment for pseudomonal infection/pneumonia and he is on Zosyn. Patient is to have a swallow evaluation today and possibly allow oral feeding. His tracheostomy was placed on 03/05, patient is still requiring low- dose norepinephrine at 0.01 mcg/kg/min. Basic metabolic profile is normal, bicarb is 37 BUN is 9 creatinine 0.41 chest x-ray continues show interstitial opacities with slight improvement specially in the right and left basilar areas Patient was evaluated today on 03/10/2024 remains in the ICU remains on T-piece at 28% FiO2 patient passed his swallow evaluation yesterday and now he is allowed to have oral feedings, in the meantime he is on TPN at 85 cc/h he is off norepinephrine since 5 AM this morning. Remains on Zosyn for his pseudomonal infection cough seems to be deflated for him to swallow and tolerate oral diet. Not much has happened in the last 24 hours otherwise. Labs were reviewed WBC count is 4.3 hemoglobin 9.3 basic metabolic profile is normal renal profile is normal Seen today on 03/12/2024, patient is doing well, he is on the medical floor, not in any distress, on 28% trach collar, remains on antibiotics, he is not requiring any pressors, hemodynamically stable, patient has a speaking valve and able to communicate. Denies any specific symptoms.WBC count is 6.2 hemoglobin is 10.1 electrolytes are normal renal profile is normal Objective - Vital Signs Vital signs: Vital Signs Temp 98.8 F 03/12/24 09:05 Pulse 72 03/12/24 12:12 Resp 16 03/12/24 09:05 BP 117/62 03/12/24 09:05 Pulse Ox 93 L 03/12/24 09:05 FiO2 28 03/12/24 09:05 Intake & Output 03/11/24 03/12/24 03/12/24 18:59 06:59 18:59 Intake Total 1146 222 Output Total 1975 1350 2500 Balance -829 -1350 -2278 Weight 95.5 kg Intake: Oral 1146 222 Output: Urine 725 607 7468 Stool 8588 221 8457 Other: Voiding Method Indwelling Catheter Indwelling Catheter Indwelling Catheter ABP, PAP, CO, CI - Last Documented Arterial Blood Pressure 91/88 - Exam GENERAL: A 48-year-old male patient, currently has a tracheostomy 28% trach collar Tracheostomy is intact HEENT: No scleral icterus. No conjunctival pallor. Normocephalic, atraumatic. CARDIOVASCULAR: S1 and S2 present. No murmurs, rubs, or gallops. PULMONARY: Diminished breath sounds were bilaterally. No wheezes rhonchi or crackles ABDOMEN: Soft, nontender, nondistended, normoactive bowel sounds. No palpable organomegaly. Functioning ileostomy. 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 EXTREMITIES: No cyanosis, clubbing, or pedal edema. Right below-knee amputation is noted. NEUROLOGICAL: Profound weakness in all 4 extremities, weak cough, extensive muscle atrophy in all 4 extremities. Arousable and awake and follows simple commands and communicates. SKIN: No rashes. Left chest PICC line. - Labs CBC & Chem 7: 03/12/24 06:47 03/12/24 06:47 Labs: Abnormal Lab Results - Last 24 Hours (Table) 03/11/24 03/12/24 03/12/24 Range/Units 16:26 00:13 05:59 RBC (4.30-5.90) m/uL Hgb (13.0-17.5) gm/dL Hct (39.0-53.0) % MCHC (31.0-37.0) g/dL RDW (11.5-15.5) % Sodium (137-145) mmol/L Creatinine (0.66-1.25) mg/dL Glucose (74-99) mg/dL POC Glucose (mg/dL) 241 H 260 H 136 H (70-110) mg/dL Total Protein (6.3-8.2) g/dL 03/12/24 03/12/24 03/12/24 Range/Units 06:47 06:47 12:03 RBC 3.94 L (4.30-5.90) m/uL Hgb 10.1 L (13.0-17.5) gm/dL Hct 34.9 L (39.0-53.0) % MCHC 29.1 L (31.0-37.0) g/dL RDW 16.7 H (11.5-15.5) % Sodium 136 L (137-145) mmol/L Creatinine 0.51 L (0.66-1.25) mg/dL Glucose 153 H (74-99) mg/dL POC Glucose (mg/dL) 208 H (70-110) mg/dL Total Protein 8.4 H (6.3-8.2) g/dL Assessment and Plan Assessment: Impression: Acute hypoxic and hypercapnic respiratory failure, requiring mechanical intubation on 02/26/24. 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 Sepsis/septic shock secondary to above, recurrent pneumonia, currently low-dose norepinephrine Crohn's disease, with previous complication of bowel perforation s/p colectomy and diverting ileostomy. The patient also has had previous history of abdominal wall bleeding there is currently inactive and stable. The patient has a high output ileostomy TPN for nutritional support Electrolyte imbalance at time of admission including hyponatremia, hypokalemia, hypophosphatemia, hypomagnesemia and hyperphosphatemia, all resolved Tracheobronchomalacia History of DVT, on therapeutic dose of Lovenox CVA/TIA, with residual left-sided weakness Right BKA History of asystole/cardiac arrest in 2021 Plan: Continue trach collar Continue nutritional support Continue antibiotics Consider placement in the next few days once patient is cleared by infectious disease on the case Continue GI and DVT prophylaxis, patient is on Lovenox Continue bronchodilators Time with Patient: Less than 30
[2024-03-12] MEDS: FOLIC ACID 1 MG TAB PO SCH (12:27)
[2024-03-12] MEDS: MULTIVITAMINS, THERA 1 EACH TAB PO SCH (12:27)
[2024-03-12] MEDS: BUDESONIDE 1 MG/2 ML NEBU INHALATION SCH (15:12)
--- NOTE | 2024-03-12 15:35 | P.PN ---
Subjective Progress Note Date: 03/12/24 Principal diagnosis: Reason for follow-up is pneumonia Patient is a 48-year-old male with a past medical history significant for CVA TIA DVT bones disease multiple abdominal surgeries did have a enterocutaneous fistula recent admission for pneumonia has been brought to the hospital with worsening shortness of with hypoxemia patient did have worsening respiratory status requiring intubation and admission to the ICU. On today's evaluation that is 03/12/2024,the patient remains to be afebrile, patient is on trach collar supplemental oxygen and denies any shortness of breath no chest pain or any worsening cough.Patient denies having any nausea or vomiting, no abdominal pain, mention feeling better. Patient white count 6.2, creatinine 0.51 chest x-ray this morning improving perihilar opacities Objective - Vital Signs Vital signs: Vital Signs Temp 98.9 F 03/12/24 11:50 Pulse 78 03/12/24 15:25 Resp 16 03/12/24 11:50 BP 107/60 03/12/24 11:50 Pulse Ox 92 L 03/12/24 11:50 FiO2 28 03/12/24 09:05 Intake & Output 03/11/24 03/12/24 03/12/24 18:59 06:59 18:59 Intake Total 1146 222 Output Total 1975 1350 2500 Balance -829 -1350 -1828 Weight 95.5 kg Intake: Oral 1146 222 Output: Urine 276 690 9963 Stool 4013 775 6724 Other: Voiding Method Indwelling Catheter Indwelling Catheter Indwelling Catheter ABP, PAP, CO, CI - Last Documented Arterial Blood Pressure 91/88 - Exam GENERAL DESCRIPTION: Middle-age man lying in bed in no distress RESPIRATORY SYSTEM: Unlabored breathing , decreased intensity of breath sounds HEART: S1 S2 regular rate and rhythm , ABDOMEN: Soft , no tenderness - Labs CBC & Chem 7: 03/12/24 06:47 03/12/24 06:47 Labs: Abnormal Lab Results - Last 24 Hours (Table) 03/11/24 03/12/24 03/12/24 Range/Units 16:26 00:13 05:59 RBC (4.30-5.90) m/uL Hgb (13.0-17.5) gm/dL Hct (39.0-53.0) % MCHC (31.0-37.0) g/dL RDW (11.5-15.5) % Sodium (137-145) mmol/L Creatinine (0.66-1.25) mg/dL Glucose (74-99) mg/dL POC Glucose (mg/dL) 241 H 260 H 136 H (70-110) mg/dL Total Protein (6.3-8.2) g/dL 03/12/24 03/12/24 03/12/24 Range/Units 06:47 06:47 12:03 RBC 3.94 L (4.30-5.90) m/uL Hgb 10.1 L (13.0-17.5) gm/dL Hct 34.9 L (39.0-53.0) % MCHC 29.1 L (31.0-37.0) g/dL RDW 16.7 H (11.5-15.5) % Sodium 136 L (137-145) mmol/L Creatinine 0.51 L (0.66-1.25) mg/dL Glucose 153 H (74-99) mg/dL POC Glucose (mg/dL) 208 H (70-110) mg/dL Total Protein 8.4 H (6.3-8.2) g/dL Assessment and Plan (1) Pneumonia Current Visit: No Status: Acute Code(s): J18.9 - PNEUMONIA, UNSPECIFIED ORGANISM SNOMED Code(s): 559111238 (2) Sepsis Current Visit: No Status: Acute Code(s): A41.9 - SEPSIS, UNSPECIFIED ORGANISM SNOMED Code(s): 36580103 Plan: 1patient presented to hospital with sepsis in this patient who did have a low- grade fever elevated white count tachycardia meeting criteria for SIRS source likely pneumonia at this patient presenting with increasing shortness of breath cough with evidence of right-sided infiltrate, patient has been admitted to the hospital and will need to cover for resistant gram-positive as well as gram- negative 2-patient is status post bronchoscopy and lavage completed on 03/02/2024 cultures currently growing Pseudomonas that is resistant to cefepime, 3-patient is afebrile white count is normal and chest x-ray did shows improvement, we will continue with Zosyn to finish his course of therapy monitor clinical course closely Dictation was produced using [employer]ation software. please excuse any grammatical, word or spelling errors. Time with Patient: Less than 30
[2024-03-12 16:48] LABS: Glucose,Whole Blood 222 mg/dL (70-110)
[2024-03-12] MEDS: [UNRECOGNIZED DRUG - MIXTURE] IV SCH (18:09)
[2024-03-12 23:50] LABS: Glucose,Whole Blood 216 mg/dL (70-110)
--- NOTE | 2024-03-13 01:34 | PN ---
PROGRESS NOTE DATE OF SERVICE: 03/12/2024 SUBJECTIVE: This is a 48-year-old gentleman admitted with Pseudomonas pneumonia, sepsis, acute hypoxic respiratory failure, also had a tracheostomy. The patient is closely monitored. The patient also had hypocorticism. The patient is on replacement steroids. The patient is improving significantly. No chest pain. No palpitation. Most recent chest x-ray was personally reviewed by me. It showed some improvement, but atelectasis in the lower lobes persist. PAST MEDICAL HISTORY: Reviewed. REVIEW OF SYSTEMS: A 14-point review of systems is negative except as mentioned earlier. CURRENT MEDICATIONS: Reviewed. PHYSICAL EXAMINATION: VITAL SIGNS: Pulse is 78, blood pressure 170/64, respirations 16. CHEST: A few scattered rhonchi and crackles. NECK: Tracheostomy. ABDOMEN: Soft, nontender. LABORATORY DATA: Noted. ASSESSMENT: 1. Pseudomonas pneumonia with possible sepsis, acute hypoxic respiratory failure with right lower lobe pneumonia present on admission, status post mechanical ventilation. 2. Status post tracheostomy. 3. Recurrent mucus plugging. 4. History of deep venous thrombosis and right below-knee amputation. 5. History of Crohn's disease with previous bowel perforation. 6. Hypocorticism, on IV steroids. 7. Profound immunosuppression. 8. Protein-calorie malnutrition, on PPN. 9. History of previous cardiac arrest in 2021. 10.History of MRSA. 11.Multiple complex medical issues. RECOMMENDATIONS: Recommend to continue current management and continue symptomatic treatment. Continue with bronchodilators. Continue with antibiotics. The patient is on IV Zosyn. Guarded prognosis because of multiple complex medical issues. Further recommendations to follow. I would recommend repeat labs. PT/OT evaluation. Possible ECF rehab. Continue the bronchodilators. Add Pulmicort to the current regimen. MMODL / IJN: [id number] /
[2024-03-13 05:55] LABS: Glucose,Whole Blood 198 mg/dL (70-110)
[2024-03-13 07:13] LABS: Anisocytosis Slight; Basophils % (A) 0 %; Eosinophils % (A) 0 %; HCT 32.3 % (39.0-53.0); HGB 9.3 gm/dL (13.0-17.5); Hypochromasia Marked; Lymphocytes # (A) 2.4 k/uL (1.0-4.8); Lymphocytes % (A) 33 %; MCH 25.7 pg (25.0-35.0); MCHC 28.8 g/dL (31.0-37.0); Mean Platelet Volume 9.2; Monocytes # (A) 0.3 k/uL (0-1.0); Monocytes % (A) 4 %; Neutrophils # (A) 4.4 k/uL (1.3-7.7); Neutrophils % (A) 60 %; Platelet Count 283 k/uL (150-450); RBC 3.62 m/uL (4.30-5.90); RDW 16.7 % (11.5-15.5); WBC 7.3 k/uL (3.8-10.6)
[2024-03-13 07:26] LABS: African American GFR (CKD) >90 (>60 ml/min/1.73 sqM); Anion Gap 5 mmol/L; Blood Urea Nitrogen 19 mg/dL (9-20); Calcium 9.2 mg/dL (8.4-10.2); Carbon Dioxide 28 mmol/L (22-30); Chloride 101 mmol/L (98-107); Glucose 182 mg/dL (74-99); Non-African American GFR(CKD) >90 (>60 ml/min/1.73 sqM); Phosphorus 3.3 mg/dL (2.5-4.5); Potassium 5.3 mmol/L (3.5-5.1); Sodium 134 mmol/L (137-145)
--- NOTE | 2024-03-13 10:59 | P.PN ---
Subjective Progress Note Date: 03/13/24 SURGICAL PROGRESS NOTE CHIEF COMPLAINT: Respiratory failure HISTORY OF PRESENT ILLNESS: Patient is status post tracheostomy placement. Patient currently on a regular medical floor. No new complaints. Afebrile. WBC 7.3 PHYSICAL EXAM: VITAL SIGNS: Reviewed. GENERAL: sleeping comfortably HEENT: Tracheostomy site with gauze in place. No drainage noted. ASSESSMENT: 1. Acute hypoxic and hypercapnic respiratory failure. Patient having difficulty weaning from the vent. Status post tracheostomy placement 2. Tracheal stenosis. Prior history of tracheostomy PLAN: -Continue pressure relief at trach site with gauze due to skin irritation at trach site Physician Protein Scientist note has been reviewed by physician. Signing provider agrees with the documented findings, assessment, and plan of care. Objective - Vital Signs Vital signs: Vital Signs Temp 98 F 03/13/24 04:23 Pulse 77 03/13/24 09:04 Resp 16 03/13/24 04:23 BP 138/71 03/13/24 04:23 Pulse Ox 91 L 03/13/24 08:42 FiO2 35 03/13/24 08:42 Intake & Output 03/12/24 03/13/24 03/13/24 18:59 06:59 18:59 Intake Total 822 Output Total 3800 500 Balance -2978 -500 Intake: Oral 822 Output: Urine 1800 Stool 2000 500 Other: Voiding Method Indwelling Catheter Indwelling Catheter ABP, PAP, CO, CI - Last Documented Arterial Blood Pressure 91/88 - Labs CBC & Chem 7: 03/13/24 06:50 03/13/24 06:50 Labs: Abnormal Lab Results - Last 24 Hours (Table) 03/12/24 03/12/24 03/12/24 Range/Units 12:03 16:46 23:48 RBC (4.30-5.90) m/uL Hgb (13.0-17.5) gm/dL Hct (39.0-53.0) % MCHC (31.0-37.0) g/dL RDW (11.5-15.5) % Sodium (137-145) mmol/L Potassium (3.5-5.1) mmol/L Creatinine (0.66-1.25) mg/dL Glucose (74-99) mg/dL POC Glucose (mg/dL) 208 H 222 H 216 H (70-110) mg/dL 03/13/24 03/13/24 03/13/24 Range/Units 05:52 06:50 06:50 RBC 3.62 L (4.30-5.90) m/uL Hgb 9.3 L (13.0-17.5) gm/dL Hct 32.3 L (39.0-53.0) % MCHC 28.8 L (31.0-37.0) g/dL RDW 16.7 H (11.5-15.5) % Sodium 134 L (137-145) mmol/L Potassium 5.3 H (3.5-5.1) mmol/L Creatinine 0.51 L (0.66-1.25) mg/dL Glucose 182 H (74-99) mg/dL POC Glucose (mg/dL) 198 H (70-110) mg/dL
[2024-03-13 11:29] LABS: Glucose,Whole Blood 166 mg/dL (70-110)
--- NOTE | 2024-03-13 12:57 | P.PN ---
Subjective Progress Note Date: 03/13/24 Principal diagnosis: Acute hypoxic and hypercapnic respiratory failure requiring intubation on 02/26/2024, tracheostomy on 03/05/2024 Patient is a 48-year-old male with complex past medical history including CVA, previous DVTs, right BKA, cardiac arrest in 2021, Crohn's disease, enterocutaneous fistulas, previous bowel resection, ventilator dependent respiratory failure, previous tracheostomy and reversal. Recently was admitted 12/13/2023 through 12/25/2023 for pneumonia and respiratory failure due to mucous plugging. He was intubated and placed on mechanical ventilator for approximately 6 days. He did have a bronchoscopy with BAL, microbiology positive for haemophilus influenza. Eventually, discharged home, and returned 01/02/24 for GIB from his ostomy. Was reintubated and did spend some time on the ventilator for reccurent pneumonia and mucous plugging. During this time, had multiple bronchoscopies with BAL, once on 12/31/2023 and again on 01/03/2024, isolated organisms including MRSA and Pseudomonas. Patient was eventually discharged back home on 01/16/2024. More recently, patient had an ER visit for increased work of breathing on February 22, and the patient was sent home. Returned for similar symptoms yesterday afternoon. Chest x-ray done on [facility] [place] showing cardiomegaly with pulmonary vascular congestion and questionable right lower lobe infiltrate or effusion. CBC: WBC count 11.2, hemoglobin 10.5, hematocrit 37.3, platelets 315. CMP: Sodium 138, potassium 4.8, chloride 97, serum bicarb 39, BUN 23, creatinine 0.45, glucose 103. Lactic 1. LFTs unremarkable. Troponin less than 0.012. I am evaluating this patient emergency department, he is currently unresponsive, to even painful stimuli. He is on a 15 L nonrebreather. SpO2 88%. Diminished breath sounds on the right Will place this patient on BiPAP with initial settings 16/5 FiO2 to be titrated accordingly. Will get a stat ABG. We will repeat chest x-ray. I did talk to the patient's son, Alan, he is adamant that the patient remain a full code, would want the patient intubated if necessary. On reassessment in the emergency department, patient remained on BiPAP with set tings 16/5 100%. He remains unresponsive to painful stimuli. Now only achieving tidal volumes ranging from 100 to 200 cc. Unfortunately, we were not able to to get an initial blood gas. I recommended that the patient be moved to the trauma bay and intubated by the ENGINEERING AND SCIENTIFIC PROGRAMMER. Follow-up chest x-ray showing the endotracheal tube in appropriate position above the avery. Orogastric tube coursing below the diaphragm. Initial ventilator settings include assist- control, respiratory rate 20, tidal volume 500, FiO2 100%, PEEP of 5. Currently, patient is fairly asynchronous with the ventilator and he is biting the tube. There are copious amounts of blood-tinged sputum in the ET tube. Elevated peak airway pressures of 45. Static pressure 32. The nurses are working on appropriately sedating the patient with propofol. Postintubation, the patient did become hypotensive, currently receiving his second liter of normal saline. Will also start the patient on norepinephrine to maintain a MAP of grea ter than 65 mmHg. I did insert a left femoral arterial line. Following this, we did obtain an ABG showing profound hypercapnic and hypoxic respiratory failure. PaO2 of 89, pCO2 98, pH of 7.11. Appropriate ventilator adjustments were made including increasing the rate to 26 and PEEP can be increased to 8. Patient may eventually need repeat bronchoscopy with BAL. Case will be discussed with Dr. Munoz. Patient is still waiting for a bed in the intensive care unit. I did call and update patient's son Alan about his change in clinical condition. On 03/07/2024, the patient is awake and alert and the patient is currently off propofol. The patient is still on the mechanical ventilator assist-control mode rate of 16, tidal volume of 500, FiO2 50% with a PEEP of 6. Calm and comfortable and breathing comfortable. No significant secretions through the tracheostomy tube. Remains on IV Zosyn. He does have pseudomonal pneumonia for which she is on IV Zosyn based on antibiotic sensitivities. Remains on TPN and this was increased up to 60 cc an hour. Remains on anticoagulation with Lovenox 80 mg subcu every 12 hours. Ileostomy is still active and the patient is producing approximately 1000 cc of gastric output over the past 8 hours. Fluid balance -600 cc over the past 24 hours. White cell count is at 4.9 with a hemoglobin 8.8 and a platelet count of 255. BUN is 10 with a creatinine of 0.4 and the sodium is at 137 and a potassium level is at 4.1. Awake and alert and communicating. Profound weakness of lower extremities along with significant muscle atrophy. On 03/08/2024, the patient is on a T-piece at 40% FiO2. No significant respiratory secretions., Comfortable and awake and communicating. He is asking for some oral intake of food. No respiratory difficulties. Remains on TPN at rate of 60 cc an hour. Ileostomy output has been 1500 over the past 8 hours. Fluid balance is 0. Remains on low-dose norepinephrine 0.04 mcg/kg/min. The white cell count of 5 with a hemoglobin 8.3 and a platelet count of 236. BUN is 8 with a creatinine of 0.37 and sodium levels at 137. He remains on IV Zosyn regarding his pseudomonal pneumonia. Chest x-ray findings are also stable. Patient was evaluated today on 03/09/2024, patient remains on T-piece, at 35% FiO2, seems to be fairly comfortable, does not seem to be in any distress, he is awake, communicating, does not seem to be in distress, still on TPN, 60 mL/h, patient is receiving treatment for pseudomonal infection/pneumonia and he is on Zosyn. Patient is to have a swallow evaluation today and possibly allow oral feeding. His tracheostomy was placed on 03/05, patient is still requiring low- dose norepinephrine at 0.01 mcg/kg/min. Basic metabolic profile is normal, bicarb is 37 BUN is 9 creatinine 0.41 chest x-ray continues show interstitial opacities with slight improvement specially in the right and left basilar areas Patient was evaluated today on 03/10/2024 remains in the ICU remains on T-piece at 28% FiO2 patient passed his swallow evaluation yesterday and now he is allowed to have oral feedings, in the meantime he is on TPN at 85 cc/h he is off norepinephrine since 5 AM this morning. Remains on Zosyn for his pseudomonal infection cough seems to be deflated for him to swallow and tolerate oral diet. Not much has happened in the last 24 hours otherwise. Labs were reviewed WBC count is 4.3 hemoglobin 9.3 basic metabolic profile is normal renal profile is normal Seen today on 03/12/2024, patient is doing well, he is on the medical floor, not in any distress, on 28% trach collar, remains on antibiotics, he is not requiring any pressors, hemodynamically stable, patient has a speaking valve and able to communicate. Denies any specific symptoms.WBC count is 6.2 hemoglobin is 10.1 electrolytes are normal renal profile is normal Patient was evaluated today on 03/13/2024, remains on trach collar, does not seem to be in any distress, WBC count 7.3 hemoglobin 9.3 electrolytes are normal potassium is a bit high at 5.3 renal profile is normal, overall the patient is doing great. Objective - Vital Signs Vital signs: Vital Signs Temp 98 F 03/13/24 04:23 Pulse 95 03/13/24 12:00 Resp 18 03/13/24 12:00 BP 130/61 03/13/24 12:00 Pulse Ox 96 03/13/24 12:00 FiO2 35 03/13/24 08:42 Intake & Output 03/12/24 03/13/24 03/13/24 18:59 06:59 18:59 Intake Total 822 Output Total 3800 500 725 Balance -2978 -500 -725 Weight 95.5 kg Intake: Oral 822 Output: Urine 1800 225 Stool 2000 500 500 Other: Voiding Method Indwelling Catheter Indwelling Catheter Indwelling Catheter # Bowel Movements 650 ABP, PAP, CO, CI - Last Documented Arterial Blood Pressure 91/88 - Exam GENERAL: A 48-year-old male patient, currently has a tracheostomy 28% trach collar Tracheostomy is intact HEENT: No scleral icterus. No conjunctival pallor. Normocephalic, atraumatic. CARDIOVASCULAR: S1 and S2 present. No murmurs, rubs, or gallops. PULMONARY: Diminished breath sounds were bilaterally. No wheezes rhonchi or crackles ABDOMEN: Soft, nontender, nondistended, normoactive bowel sounds. No palpable organomegaly. Functioning ileostomy. 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 EXTREMITIES: No cyanosis, clubbing, or pedal edema. Right below-knee amputation is noted. NEUROLOGICAL: Profound weakness in all 4 extremities, weak cough, extensive muscle atrophy in all 4 extremities. Arousable and awake and follows simple commands and communicates. SKIN: No rashes. Left chest PICC line. - Labs CBC & Chem 7: 03/13/24 06:50 03/13/24 06:50 Labs: Abnormal Lab Results - Last 24 Hours (Table) 03/12/24 03/12/24 03/13/24 Range/Units 16:46 23:48 05:52 RBC (4.30-5.90) m/uL Hgb (13.0-17.5) gm/dL Hct (39.0-53.0) % MCHC (31.0-37.0) g/dL RDW (11.5-15.5) % Sodium (137-145) mmol/L Potassium (3.5-5.1) mmol/L Creatinine (0.66-1.25) mg/dL Glucose (74-99) mg/dL POC Glucose (mg/dL) 222 H 216 H 198 H (70-110) mg/dL 03/13/24 03/13/24 03/13/24 Range/Units 06:50 06:50 11:28 RBC 3.62 L (4.30-5.90) m/uL Hgb 9.3 L (13.0-17.5) gm/dL Hct 32.3 L (39.0-53.0) % MCHC 28.8 L (31.0-37.0) g/dL RDW 16.7 H (11.5-15.5) % Sodium 134 L (137-145) mmol/L Potassium 5.3 H (3.5-5.1) mmol/L Creatinine 0.51 L (0.66-1.25) mg/dL Glucose 182 H (74-99) mg/dL POC Glucose (mg/dL) 166 H (70-110) mg/dL Assessment and Plan Assessment: Impression: Acute hypoxic and hypercapnic respiratory failure, requiring mechanical intubation on 02/26/24. 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 Sepsis/septic shock secondary to above, recurrent pneumonia, currently low-dose norepinephrine Crohn's disease, with previous complication of bowel perforation s/p colectomy and diverting ileostomy. The patient also has had previous history of abdominal wall bleeding there is currently inactive and stable. The patient has a high output ileostomy TPN for nutritional support Electrolyte imbalance at time of admission including hyponatremia, hypokalemia, hypophosphatemia, hypomagnesemia and hyperphosphatemia, all resolved Tracheobronchomalacia History of DVT, on therapeutic dose of Lovenox CVA/TIA, with residual left-sided weakness Right BKA History of asystole/cardiac arrest in 2021 Plan: Continue trach collar Continue bronchodilators Continue Solu-Cortef, patient was found to have low cortisol level 2.5 on follow-up repeat cortisol level Continue nutritional support Continue antibiotics/Zosyn Consider placement in the next few days once patient is cleared by infectious disease on the case Continue GI and DVT prophylaxis, patient is on Lovenox Continue bronchodilators Time with Patient: Less than 30
[2024-03-13] MEDS: MVI, ADULT NO.4 WITH VIT K 10 ML, TRACE (CONC-1ML/DOSE) 1 ML, SODIUM CHLORIDE 4MEQ/ML V... IV SCH (13:25)
--- NOTE | 2024-03-13 15:14 | P.PN ---
Subjective Progress Note Date: 03/13/24 Principal diagnosis: Reason for follow-up is pneumonia Patient is a 48-year-old male with a past medical history significant for CVA TIA DVT bones disease multiple abdominal surgeries did have a enterocutaneous fistula recent admission for pneumonia has been brought to the hospital with worsening shortness of with hypoxemia patient did have worsening respiratory status requiring intubation and admission to the ICU. On today's evaluation that is 03/13/2024, the patient continues to be afebrile, the patient is on trach collar and breathing comfortably, the Pt denies having any chest pain and cough is decreased intensity, the patient denies having any abdominal pain no vomiting, tolerating his diet. Patient white count 7.3, creatinine 0.51 Objective - Vital Signs Vital signs: Vital Signs Temp 98 F 03/13/24 04:23 Pulse 95 03/13/24 12:00 Resp 18 03/13/24 12:00 BP 130/61 03/13/24 12:00 Pulse Ox 96 03/13/24 12:00 FiO2 35 03/13/24 08:42 Intake & Output 03/12/24 03/13/24 03/13/24 18:59 06:59 18:59 Intake Total 822 0 Output Total 3800 500 725 Balance -2978 -500 -725 Weight 95.5 kg Intake: Oral 822 0 Output: Urine 1800 225 Stool 2000 500 500 Other: Voiding Method Indwelling Catheter Indwelling Catheter Indwelling Catheter # Bowel Movements 650 ABP, PAP, CO, CI - Last Documented Arterial Blood Pressure 91/88 - Exam GENERAL DESCRIPTION: Middle-age man lying in bed in no distress RESPIRATORY SYSTEM: Unlabored breathing , decreased intensity of breath sounds HEART: S1 S2 regular rate and rhythm , ABDOMEN: Soft , no tenderness - Labs CBC & Chem 7: 03/13/24 06:50 03/13/24 06:50 Labs: Abnormal Lab Results - Last 24 Hours (Table) 03/12/24 03/12/24 03/13/24 Range/Units 16:46 23:48 05:52 RBC (4.30-5.90) m/uL Hgb (13.0-17.5) gm/dL Hct (39.0-53.0) % MCHC (31.0-37.0) g/dL RDW (11.5-15.5) % Sodium (137-145) mmol/L Potassium (3.5-5.1) mmol/L Creatinine (0.66-1.25) mg/dL Glucose (74-99) mg/dL POC Glucose (mg/dL) 222 H 216 H 198 H (70-110) mg/dL 03/13/24 03/13/24 03/13/24 Range/Units 06:50 06:50 11:28 RBC 3.62 L (4.30-5.90) m/uL Hgb 9.3 L (13.0-17.5) gm/dL Hct 32.3 L (39.0-53.0) % MCHC 28.8 L (31.0-37.0) g/dL RDW 16.7 H (11.5-15.5) % Sodium 134 L (137-145) mmol/L Potassium 5.3 H (3.5-5.1) mmol/L Creatinine 0.51 L (0.66-1.25) mg/dL Glucose 182 H (74-99) mg/dL POC Glucose (mg/dL) 166 H (70-110) mg/dL Assessment and Plan (1) Pneumonia Current Visit: No Status: Acute Code(s): J18.9 - PNEUMONIA, UNSPECIFIED ORGANISM SNOMED Code(s): 272267447 (2) Sepsis Current Visit: No Status: Acute Code(s): A41.9 - SEPSIS, UNSPECIFIED ORGANISM SNOMED Code(s): 45372386 Plan: 1patient presented to hospital with sepsis in this patient who did have a low- grade fever elevated white count tachycardia meeting criteria for SIRS source likely pneumonia at this patient presenting with increasing shortness of breath cough with evidence of right-sided infiltrate, patient has been admitted to the hospital and will need to cover for resistant gram-positive as well as gram-negative 2-patient is status post bronchoscopy and lavage completed on 03/02/2024 cultures currently growing Pseudomonas that is resistant to cefepime, 3-patient is afebrile white count is normal and chest x-ray did shows improvement, 4patient will be treated with Zosyn to finish a 10-14 day course of therapy depending upon his clinical response Dictation was produced using [employer] dictation software. please excuse any grammatical, word or spelling errors. Time with Patient: Less than 30
[2024-03-13 16:13] LABS: Glucose,Whole Blood 145 mg/dL (70-110)
[2024-03-13] MEDS ORDERED: [UNRECOGNIZED DRUG - MIXTURE] IV SCH (19:00)
[2024-03-14 00:01] LABS: Glucose,Whole Blood 122 mg/dL (70-110)
--- NOTE | 2024-03-14 02:54 | P.PN ---
Subjective Progress Note Date: 03/13/24 This is a pleasant 48-year-old male who was recently admitted with hypoxia concerns of pneumonia initially with significant mucous plugging being followed by multiple consultations in the ICU with concerns of sepsis and difficulty weaning requiring tracheostomy. Cultures finalized from the sputum with Pseudomonas and is maintained on antibiotics in the form of Zosyn with infectious disease following. Patient doing well on tracheostomy and planning on ECF possibly in the next few days early next week. Patient is afebrile and will continue antibiotics with the plans for 10 days to 2 weeks on IV antibiotic therapy on discharge. Will discuss further with case management/social work regarding discharge planning. Patient has been moved out of the ICU and remained stable at this time. Recommend aspiration precautions and sitting with the head of the bed elevated 30 to 45 degrees at all times Review of systems: Constitutional: No reports of fatigue, fever, or chills Cardiovascular: No reports of chest pain or palpitations Respiratory: No reports of shortness of breath or cough GI: No reports of nausea, no reports of vomiting, chronic loose stool in the ostomy, tolerating oral intake. : No reports of dysuria or retention Neurovascular: reports of generalized weakness, mostly bedbound All medications have been reviewed Active Medications Albuterol/Ipratropium (Ipratropium-Albuterol 3 Ml Neb) 3 ml INHALATION RT-QID [facility] Last Admin: 03/13/24 21:04 Dose: 3 ml Albuterol/Ipratropium (Ipratropium-Albuterol 3 Ml Neb) 3 ml INHALATION RT-Q2H PRN PRN Reason: Shortness Of Breath Or Wheezing Budesonide (Budesonide 1 Mg/2 Ml Nebu) 1 mg INHALATION RT-BID [facility] Last Admin: 03/13/24 21:04 Dose: 1 mg Dextrose/Water (Dextrose 50% Syringe 50 Ml) 25 ml IVP PER PROTOCOL PRN; Protocol PRN Reason: Hypoglycemia Dextrose/Water (Dextrose 50% Syringe 50 Ml) 50 ml IVP PER PROTOCOL PRN; Protocol PRN Reason: Hypoglycemia Enoxaparin Sodium (Enoxaparin 80 Mg/0.8 Ml Syringe) 80 mg SQ BID@0900,2100 [facility] Last Admin: 03/13/24 20:19 Dose: 80 mg Folic Acid (Folic Acid 1 Mg Tab) 1 mg PO DAILY@1200 [facility] Last Admin: 03/13/24 12:05 Dose: 1 mg Hydrocortisone Sodium Succinate (Hydrocortisone Succinate 100 Mg/2 Ml Vial) 50 mg IV Q8HR [facility] Last Admin: 03/13/24 23:10 Dose: 50 mg Hydromorphone HCl (Hydromorphone 1 Mg/Ml 1 Ml Syringe) 1 mg IVP Q4HR PRN PRN Reason: Pain Last Admin: 03/14/24 01:09 Dose: 1 mg Sodium Chloride (Saline 0.9%) 1,000 mls @ 20 mls/hr IV .Q24H [facility] Last Admin: 03/13/24 16:25 Dose: Not Given Piperacillin Sod/Tazobactam (Sod 3.375 gm/ Sodium Chloride) 100 mls @ 25 mls/hr IVPB Q8H [facility]; Protocol Last Admin: 03/13/24 22:17 Dose: 25 mls/hr Fat Emulsion Intravenous 250 (ml/ IV Solution) 250 mls @ 21 mls/hr IV Q72H [facility] Last Admin: 03/12/24 12:27 Dose: 21 mls/hr Parenteral Vitamin Supplement 10 ml/ Zinc/Copper/Manganese/Selenium 1 ml/ Sodium Chloride 56 meq/ Potassium Acetate 10 meq/ Calcium Gluconate 1 gm/Magnesium Sulfate 1.25 gm/Sodium Phosphate 21 mmol/Amino Acids/Dextrose 1,049.5 mls @ 45 mls/hr IV .[id number] [facility] Last Admin: 03/13/24 13:25 Dose: 45 mls/hr Insulin Aspart (Insulin Aspart (Novolog) 100 Unit/Ml Vial) 0 unit SQ Q6H [facility]; Protocol Last Admin: 03/14/24 00:23 Dose: Not Given Miscellaneous Information (Phosphorus Replacement Protoco 1 Each Misc) 1 each MISCELLANE DAILY PRN; Protocol PRN Reason: Per Protocol Miscellaneous Information (Potassium Replacement Protocol 1 Each Misc) 1 each MISCELLANE DAILY PRN; Protocol PRN Reason: Per Protocol Miscellaneous Information (Magnesium Replacement Protocol 1 Each Misc) 1 each MISCELLANE DAILY PRN; Protocol PRN Reason: Per Protocol Multivitamins (Multivitamins, Thera 1 Each Tab) 1 each PO DAILY@1200 [facility] Last Admin: 03/13/24 12:05 Dose: 1 each Naloxone HCl (Naloxone 0.4 Mg/Ml 1 Ml Vial) 0.2 mg IV Q2M PRN PRN Reason: Opioid Reversal Last Admin: 02/26/24 02:02 Dose: 0.2 mg Pantoprazole Sodium (Pantoprazole 40 Mg/10 Ml Vial) 40 mg IVP DAILY [facility] Last Admin: 03/13/24 10:41 Dose: 40 mg Thiamine HCl (Thiamine 100 Mg Tab) 100 mg PO BID-W/MEALS [facility] Last Admin: 03/13/24 16:25 Dose: 100 mg PHYSICAL EXAMINATION: GENERAL: The patient is alert and oriented x4, Well developed, well nourished. Appears older than stated age, obese HEENT: Pupils are round and equally reacting to light. EOMI. no scleral icterus. No conjunctival pallor. Normocephalic, atraumatic. No pharyngeal erythema. No thyromegaly. CARDIOVASCULAR: S1 and S2 muffled PULMONARY: diminished breath sounds bilaterally with some coarse scattered rhonchi noted. Upper bronchial congestion noted that patient clears relatively well ABDOMEN: soft. Nontender on exam. obese. non-distended, normoactive bowel sounds. No palpable organomegaly. Large ostomy noted MUSCULOSKELETAL: No joint swelling or deformity. EXTREMITIES: No cyanosis, clubbing, or pedal edema. NEUROLOGICAL: Gross neurological examination did not reveal any focal deficits. Diffuse weakness SKIN: No rashes. Assessment: Pseudomonas pneumonia with sepsis, and acute hypoxic respiratory failure with right lower lobe pneumonia, present on admission, status post mechanical ventilation requiring tracheostomy Status post tracheostomy Recurrent mucous plugging History of DVT and right below the knee amputation History of Crohn's disease with previous bowel perforation and multiple surgeries Hydrocortisone, on IV steroids Profound immunosuppression Severe protein calorie malnutrition maintained on TPN History of previous cardiac arrest in 2021 History of MRSA Obesity with a BMI of 30.2 GI prophylaxis DVT prophylaxis Full code Plan: Recommend to continue with current medications and management with multiple consultations following. Patient has been transitioned out of the ICU on stepdown and doing relatively well Patient to continue current medication regimen including IV Zosyn with infectious disease following. Plan will be for 10 days to 2 weeks on discharge of IV antibiotic therapy Case management/social work following and will be arranging for ECF for continued senior care along with IV antibiotic therapy and significant wounds Recommend aspiration precautions at all times with head of the bed elevated 30 to 45 degrees and assistance with feeds Await updated PT/OT therapy notes and patient will likely require insurance authorization for ECF Due to multiple complex medical issues, overall prognosis is guarded Consider discharge planning early next week The impression and plan of care has been dictated by Alyssa Hernandez, nurse practitioner as directed. Dr. Gerry MD I have performed a history and examination and MDM of this patient, discussed the same with the dictator, and agree with the dictator's assessment and plan as written ,documented as a scribe. Based on total visit time, I have performed more than 50% of the visit. Any additional findings or plans will be noted. Objective - Vital Signs Vital signs: Vital Signs Temp 98.4 F 03/13/24 15:50 Pulse 96 03/13/24 15:58 Resp 16 03/13/24 15:50 BP 131/73 03/13/24 15:50 Pulse Ox 96 03/13/24 12:00 FiO2 35 03/13/24 08:42 Intake & Output 03/12/24 03/13/24 03/13/24 18:59 06:59 18:59 Intake Total 822 0 Output Total 3800 500 725 Balance -2978 -500 -725 Weight 95.5 kg Intake: Oral 822 0 Output: Urine 1800 225 Stool 2000 500 500 Other: Voiding Method Indwelling Catheter Indwelling Catheter Indwelling Catheter # Bowel Movements 650 ABP, PAP, CO, CI - Last Documented Arterial Blood Pressure 91/88 - Labs CBC & Chem 7: 03/13/24 06:50 03/13/24 06:50 Labs: Abnormal Lab Results - Last 24 Hours (Table) 03/12/24 03/12/24 03/13/24 Range/Units 16:46 23:48 05:52 RBC (4.30-5.90) m/uL Hgb (13.0-17.5) gm/dL Hct (39.0-53.0) % MCHC (31.0-37.0) g/dL RDW (11.5-15.5) % Sodium (137-145) mmol/L Potassium (3.5-5.1) mmol/L Creatinine (0.66-1.25) mg/dL Glucose (74-99) mg/dL POC Glucose (mg/dL) 222 H 216 H 198 H (70-110) mg/dL 03/13/24 03/13/24 03/13/24 Range/Units 06:50 06:50 11:28 RBC 3.62 L (4.30-5.90) m/uL Hgb 9.3 L (13.0-17.5) gm/dL Hct 32.3 L (39.0-53.0) % MCHC 28.8 L (31.0-37.0) g/dL RDW 16.7 H (11.5-15.5) % Sodium 134 L (137-145) mmol/L Potassium 5.3 H (3.5-5.1) mmol/L Creatinine 0.51 L (0.66-1.25) mg/dL Glucose 182 H (74-99) mg/dL POC Glucose (mg/dL) 166 H (70-110) mg/dL 03/13/24 Range/Units 16:12 RBC (4.30-5.90) m/uL Hgb (13.0-17.5) gm/dL Hct (39.0-53.0) % MCHC (31.0-37.0) g/dL RDW (11.5-15.5) % Sodium (137-145) mmol/L Potassium (3.5-5.1) mmol/L Creatinine (0.66-1.25) mg/dL Glucose (74-99) mg/dL POC Glucose (mg/dL) 145 H (70-110) mg/dL
--- NOTE | 2024-03-14 04:30 | P.PN ---
Progress Note - Text Progress Note Date: 03/14/24 CHIEF COMPLAINT: Respiratory failure HISTORY OF PRESENT ILLNESS: Patient is status post tracheostomy placement. Patient currently on a regular medical floor. No new complaints. Afebrile. PHYSICAL EXAM: VITAL SIGNS: Reviewed. GENERAL: sleeping comfortably HEENT: Tracheostomy site with gauze in place. No drainage noted. ASSESSMENT: 1. Acute hypoxic and hypercapnic respiratory failure. Patient having difficulty weaning from the vent. Status post tracheostomy placement 2. Tracheal stenosis. Prior history of tracheostomy PLAN: -Continue pressure relief at trach site with gauze due to skin irritation at trach site [facility] [phone]
[2024-03-14 06:05] LABS: Glucose,Whole Blood 106 mg/dL (70-110)
[2024-03-14 11:14] LABS: African American GFR (CKD) >90 (>60 ml/min/1.73 sqM); Anion Gap 8 mmol/L; Blood Urea Nitrogen 22 mg/dL (9-20); Calcium 9.8 mg/dL (8.4-10.2); Carbon Dioxide 27 mmol/L (22-30); Chloride 102 mmol/L (98-107); Glucose 112 mg/dL (74-99); Magnesium 1.9 mg/dL (1.6-2.3); Non-African American GFR(CKD) >90 (>60 ml/min/1.73 sqM); Phosphorus 2.6 mg/dL (2.5-4.5); Potassium 4.1 mmol/L (3.5-5.1); Sodium 137 mmol/L (137-145)
[2024-03-14 11:50] LABS: Glucose,Whole Blood 140 mg/dL (70-110)
--- NOTE | 2024-03-14 15:43 | P.PN ---
Subjective Progress Note Date: 03/14/24 Principal diagnosis: Acute hypoxic and hypercapnic respiratory failure requiring intubation on 02/26/2024, tracheostomy on 03/05/2024 Patient is a 48-year-old male with complex past medical history including CVA, previous DVTs, right BKA, cardiac arrest in 2021, Crohn's disease, enterocutaneous fistulas, previous bowel resection, ventilator dependent respiratory failure, previous tracheostomy and reversal. Recently was admitted 12/13/2023 through 12/25/2023 for pneumonia and respiratory failure due to mucous plugging. He was intubated and placed on mechanical ventilator for approximately 6 days. He did have a bronchoscopy with BAL, microbiology positive for haemophilus influenza. Eventually, discharged home, and returned 01/02/24 for GIB from his ostomy. Was reintubated and did spend some time on the ventilator for reccurent pneumonia and mucous plugging. During this time, had multiple bronchoscopies with BAL, once on 12/31/2023 and again on 01/03/2024, isolated organisms including MRSA and Pseudomonas. Patient was eventually discharged back home on 01/16/2024. More recently, patient had an ER visit for increased work of breathing on February 22, and the patient was sent home. Returned for similar symptoms yesterday afternoon. Chest x-ray done on [facility] [place] showing cardiomegaly with pulmonary vascular congestion and questionable right lower lobe infiltrate or effusion. CBC: WBC count 11.2, hemoglobin 10.5, hematocrit 37.3, platelets 315. CMP: Sodium 138, potassium 4.8, chloride 97, serum bicarb 39, BUN 23, creatinine 0.45, glucose 103. Lactic 1. LFTs unremarkable. Troponin less than 0.012. I am evaluating this patient emergency department, he is currently unresponsive, to even painful stimuli. He is on a 15 L nonrebreather. SpO2 88%. Diminished breath sounds on the right Will place this patient on BiPAP with initial settings 16/5 FiO2 to be titrated accordingly. Will get a stat ABG. We will repeat chest x-ray. I did talk to the patient's son, Alan, he is adamant that the patient remain a full code, would want the patient intubated if necessary. On reassessment in the emergency department, patient remained on BiPAP with set tings 16/5 100%. He remains unresponsive to painful stimuli. Now only achieving tidal volumes ranging from 100 to 200 cc. Unfortunately, we were not able to to get an initial blood gas. I recommended that the patient be moved to the trauma bay and intubated by the [employer]. Follow-up chest x-ray showing the endotracheal tube in appropriate position above the avery. Orogastric tube coursing below the diaphragm. Initial ventilator settings include assist- control, respiratory rate 20, tidal volume 500, FiO2 100%, PEEP of 5. Currently, patient is fairly asynchronous with the ventilator and he is biting the tube. There are copious amounts of blood-tinged sputum in the ET tube. Elevated peak airway pressures of 45. Static pressure 32. The nurses are working on appropriately sedating the patient with propofol. Postintubation, the patient did become hypotensive, currently receiving his second liter of normal saline. Will also start the patient on norepinephrine to maintain a MAP of grea ter than 65 mmHg. I did insert a left femoral arterial line. Following this, we did obtain an ABG showing profound hypercapnic and hypoxic respiratory failure. PaO2 of 89, pCO2 98, pH of 7.11. Appropriate ventilator adjustments were made including increasing the rate to 26 and PEEP can be increased to 8. Patient may eventually need repeat bronchoscopy with BAL. Case will be discussed with Dr. Munoz. Patient is still waiting for a bed in the intensive care unit. I did call and update patient's son Alan about his change in clinical condition. On 03/07/2024, the patient is awake and alert and the patient is currently off propofol. The patient is still on the mechanical ventilator assist-control mode rate of 16, tidal volume of 500, FiO2 50% with a PEEP of 6. Calm and comfortable and breathing comfortable. No significant secretions through the tracheostomy tube. Remains on IV Zosyn. He does have pseudomonal pneumonia for which she is on IV Zosyn based on antibiotic sensitivities. Remains on TPN and this was increased up to 60 cc an hour. Remains on anticoagulation with Lovenox 80 mg subcu every 12 hours. Ileostomy is still active and the patient is producing approximately 1000 cc of gastric output over the past 8 hours. Fluid balance -600 cc over the past 24 hours. White cell count is at 4.9 with a hemoglobin 8.8 and a platelet count of 255. BUN is 10 with a creatinine of 0.4 and the sodium is at 137 and a potassium level is at 4.1. Awake and alert and communicating. Profound weakness of lower extremities along with significant muscle atrophy. On 03/08/2024, the patient is on a T-piece at 40% FiO2. No significant respiratory secretions., Comfortable and awake and communicating. He is asking for some oral intake of food. No respiratory difficulties. Remains on TPN at rate of 60 cc an hour. Ileostomy output has been 1500 over the past 8 hours. Fluid balance is 0. Remains on low-dose norepinephrine 0.04 mcg/kg/min. The white cell count of 5 with a hemoglobin 8.3 and a platelet count of 236. BUN is 8 with a creatinine of 0.37 and sodium levels at 137. He remains on IV Zosyn regarding his pseudomonal pneumonia. Chest x-ray findings are also stable. Patient was evaluated today on 03/09/2024, patient remains on T-piece, at 35% FiO2, seems to be fairly comfortable, does not seem to be in any distress, he is awake, communicating, does not seem to be in distress, still on TPN, 60 mL/h, patient is receiving treatment for pseudomonal infection/pneumonia and he is on Zosyn. Patient is to have a swallow evaluation today and possibly allow oral feeding. His tracheostomy was placed on 03/05, patient is still requiring low- dose norepinephrine at 0.01 mcg/kg/min. Basic metabolic profile is normal, bicarb is 37 BUN is 9 creatinine 0.41 chest x-ray continues show interstitial opacities with slight improvement specially in the right and left basilar areas Patient was evaluated today on 03/10/2024 remains in the ICU remains on T-piece at 28% FiO2 patient passed his swallow evaluation yesterday and now he is allowed to have oral feedings, in the meantime he is on TPN at 85 cc/h he is off norepinephrine since 5 AM this morning. Remains on Zosyn for his pseudomonal infection cough seems to be deflated for him to swallow and tolerate oral diet. Not much has happened in the last 24 hours otherwise. Labs were reviewed WBC count is 4.3 hemoglobin 9.3 basic metabolic profile is normal renal profile is normal Seen today on 03/12/2024, patient is doing well, he is on the medical floor, not in any distress, on 28% trach collar, remains on antibiotics, he is not requiring any pressors, hemodynamically stable, patient has a speaking valve and able to communicate. Denies any specific symptoms.WBC count is 6.2 hemoglobin is 10.1 electrolytes are normal renal profile is normal Patient was evaluated today on 03/13/2024, remains on trach collar, does not seem to be in any distress, WBC count 7.3 hemoglobin 9.3 electrolytes are normal potassium is a bit high at 5.3 renal profile is normal, overall the patient is doing great. Seen today on 03/14/2024, patient is doing well, being fed by his mother at bedside, patient is asymptomatic otherwise. Trach collar remains in place, patient is tolerating trach collar well, hardly any cough no wheezing no shortness of breath no chest pain no fever no chills no hemoptysis.Labs from today including basic metabolic profile noted and basically unremarkable Objective - Vital Signs Vital signs: Vital Signs Temp 98.5 F 03/14/24 13:00 Pulse 100 03/14/24 13:00 Resp 20 03/14/24 13:00 BP 112/57 03/14/24 13:00 Pulse Ox 92 L 03/14/24 13:00 FiO2 35 03/14/24 09:41 Intake & Output 03/13/24 03/14/24 03/14/24 18:59 06:59 18:59 Intake Total 222 1299.5 Output Total 725 2500 600 Balance -503 -2500 699.5 Weight 95.5 kg 95.5 kg Intake: IV 10 Invasive Line 5 10 Intake, IV Titration 1049.5 Amount Mvi, Adult No.4 with Vit 1049.5 K 10 ml Trace (Conc-1Ml/ Dose) 1 ml Sodium Chloride 4Meq/ml Vial 56 meq Potassium Acetate 10 meq Calcium Gluconate 1 gm Magnesium Sulfate gm 1 .25 gm Sodium Phosphate 21 mmol In Amino Acids 5 %/Dextrose 20 % 1,000 ml @ 45 mls/hr IV .[id number] [facility] Rx#:[id number] Oral 222 240 Output: Urine 225 500 600 Stool 500 2000 Other: Voiding Method Indwelling Catheter Indwelling Catheter Indwelling Catheter # Bowel Movements 850 ABP, PAP, CO, CI - Last Documented Arterial Blood Pressure 91/88 - Exam GENERAL: A 48-year-old male patient, currently has a tracheostomy 28% trach collar Tracheostomy is intact HEENT: No scleral icterus. No conjunctival pallor. Normocephalic, atraumatic. CARDIOVASCULAR: S1 and S2 present. No murmurs, rubs, or gallops. PULMONARY: Diminished breath sounds were bilaterally. No wheezes rhonchi or crackles ABDOMEN: Soft, nontender, nondistended, normoactive bowel sounds. No palpable organomegaly. Functioning ileostomy. 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 EXTREMITIES: No cyanosis, clubbing, or pedal edema. Right below-knee amputation is noted. NEUROLOGICAL: Profound weakness in all 4 extremities, weak cough, extensive muscle atrophy in all 4 extremities. Arousable and awake and follows simple commands and communicates. SKIN: No rashes. Left chest PICC line. - Labs CBC & Chem 7: 03/13/24 06:50 03/14/24 10:08 Labs: Abnormal Lab Results - Last 24 Hours (Table) 03/13/24 03/14/24 03/14/24 Range/Units 16:12 00:00 10:08 BUN 22 H (9-20) mg/dL Creatinine 0.52 L (0.66-1.25) mg/dL Glucose 112 H (74-99) mg/dL POC Glucose (mg/dL) 145 H 122 H (70-110) mg/dL 03/14/24 Range/Units 11:47 BUN (9-20) mg/dL Creatinine (0.66-1.25) mg/dL Glucose (74-99) mg/dL POC Glucose (mg/dL) 140 H (70-110) mg/dL Assessment and Plan Assessment: Impression: Acute hypoxic and hypercapnic respiratory failure, requiring mechanical intubation on 02/26/24. 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 Sepsis/septic shock secondary to above, recurrent pneumonia, currently low-dose norepinephrine Crohn's disease, with previous complication of bowel perforation s/p colectomy and diverting ileostomy. The patient also has had previous history of abdominal wall bleeding there is currently inactive and stable. The patient has a high output ileostomy TPN for nutritional support Electrolyte imbalance at time of admission including hyponatremia, hypokalemia, hypophosphatemia, hypomagnesemia and hyperphosphatemia, all resolved Tracheobronchomalacia History of DVT, on therapeutic dose of Lovenox CVA/TIA, with residual left-sided weakness Right BKA History of asystole/cardiac arrest in 2021 Plan: Continue trach collar Continue bronchodilators Continue Solu-Cortef, patient was found to have low cortisol level 2.5 on follow-up repeat cortisol level Continue nutritional support Continue antibiotics/Zosyn Consider placement Continue GI and DVT prophylaxis, patient is on Lovenox Continue bronchodilators Time with Patient: Less than 30
[2024-03-14 16:32] LABS: Glucose,Whole Blood 156 mg/dL (70-110)
[2024-03-14] MEDS: HYDROmorphone 1 MG/ML 1 ML SYRINGE IVP PRN (23:19)
[2024-03-14 23:54] LABS: Glucose,Whole Blood 128 mg/dL (70-110)
[2024-03-15 06:03] LABS: Glucose,Whole Blood 105 mg/dL (70-110)
--- NOTE | 2024-03-15 07:17 | P.PN ---
Subjective Progress Note Date: 03/14/24 This is a pleasant 48-year-old male who was recently admitted with hypoxia concerns of pneumonia initially with significant mucous plugging being followed by multiple consultations in the ICU with concerns of sepsis and difficulty weaning requiring tracheostomy. Cultures finalized from the sputum with Pseudomonas and is maintained on antibiotics in the form of Zosyn with infectious disease following. Patient doing well on tracheostomy and planning on ECF possibly in the next few days early next week. Patient is afebrile and will continue antibiotics with the plans for 10 days to 2 weeks on IV antibiotic therapy on discharge. Will discuss further with case management/social work regarding discharge planning. Patient has been moved out of the ICU and remained stable at this time. Recommend aspiration precautions and sitting with the head of the bed elevated 30 to 45 degrees at all times 03/14/2024 Patient is seen in follow-up today with no acute overnight issues noted. Patient is tolerating oral intake and also continued on TPN. Patient does have a PICC line and will be continuing on 10 days to 2 weeks of Zosyn on discharge per ID recommendations. Case management/social work following working on accepting ECF and currently [facility] is reviewing. Patient is afebrile with no reports of increasing shortness of breath and denies chest pain. Review of systems: Constitutional: No reports of fatigue, fever, or chills Cardiovascular: No reports of chest pain or palpitations Respiratory: No reports of shortness of breath or cough GI: No reports of nausea, no reports of vomiting, chronic loose stool in the ostomy, tolerating oral intake. : No reports of dysuria or retention Neurovascular: reports of generalized weakness, mostly bedbound All medications have been reviewed Active Medications Albuterol/Ipratropium (Ipratropium-Albuterol 3 Ml Neb) 3 ml INHALATION RT-QID [facility] Last Admin: 03/13/24 21:04 Dose: 3 ml Albuterol/Ipratropium (Ipratropium-Albuterol 3 Ml Neb) 3 ml INHALATION RT-Q2H PRN PRN Reason: Shortness Of Breath Or Wheezing Budesonide (Budesonide 1 Mg/2 Ml Nebu) 1 mg INHALATION RT-BID [facility] Last Admin: 03/13/24 21:04 Dose: 1 mg Dextrose/Water (Dextrose 50% Syringe 50 Ml) 25 ml IVP PER PROTOCOL PRN; Protocol PRN Reason: Hypoglycemia Dextrose/Water (Dextrose 50% Syringe 50 Ml) 50 ml IVP PER PROTOCOL PRN; Protoc ol PRN Reason: Hypoglycemia Enoxaparin Sodium (Enoxaparin 80 Mg/0.8 Ml Syringe) 80 mg SQ BID@0900,2100 [facility] Last Admin: 03/13/24 20:19 Dose: 80 mg Folic Acid (Folic Acid 1 Mg Tab) 1 mg PO DAILY@1200 [facility] Last Admin: 03/13/24 12:05 Dose: 1 mg Hydrocortisone Sodium Succinate (Hydrocortisone Succinate 100 Mg/2 Ml Vial) 50 mg IV Q8HR [facility] Last Admin: 03/13/24 23:10 Dose: 50 mg Hydromorphone HCl (Hydromorphone 1 Mg/Ml 1 Ml Syringe) 1 mg IVP Q4HR PRN PRN Reason: Pain Last Admin: 03/14/24 05:12 Dose: 1 mg Sodium Chloride (Saline 0.9%) 1,000 mls @ 20 mls/hr IV .Q24H [facility] Last Admin: 03/13/24 16:25 Dose: Not Given Piperacillin Sod/Tazobactam (Sod 3.375 gm/ Sodium Chloride) 100 mls @ 25 mls/hr IVPB Q8H [facility]; Protocol Last Admin: 03/14/24 05:12 Dose: 25 mls/hr Fat Emulsion Intravenous 250 (ml/ IV Solution) 250 mls @ 21 mls/hr IV Q72H [facility] Last Admin: 03/12/24 12:27 Dose: 21 mls/hr Parenteral Vitamin Supplement 10 ml/ Zinc/Copper/Manganese/Selenium 1 ml/ Sodium Chloride 56 meq/ Potassium Acetate 10 meq/ Calcium Gluconate 1 gm/Magnesium Sulfate 1.25 gm/Sodium Phosphate 21 mmol/Amino Acids/Dextrose 1,049.5 mls @ 45 mls/hr IV .[id number] [facility] Last Admin: 03/13/24 13:25 Dose: 45 mls/hr Insulin Aspart (Insulin Aspart (Novolog) 100 Unit/Ml Vial) 0 unit SQ Q6H [facility]; Protocol Last Admin: 03/14/24 06:27 Dose: Not Given Miscellaneous Information (Phosphorus Replacement Protoco 1 Each Misc) 1 each MISCELLANE DAILY PRN; Protocol PRN Reason: Per Protocol Miscellaneous Information (Potassium Replacement Protocol 1 Each Misc) 1 each MISCELLANE DAILY PRN; Protocol PRN Reason: Per Protocol Miscellaneous Information (Magnesium Replacement Protocol 1 Each Misc) 1 each MISCELLANE DAILY PRN; Protocol PRN Reason: Per Protocol Multivitamins (Multivitamins, Thera 1 Each Tab) 1 each PO DAILY@1200 [facility] Last Admin: 03/13/24 12:05 Dose: 1 each Naloxone HCl (Naloxone 0.4 Mg/Ml 1 Ml Vial) 0.2 mg IV Q2M PRN PRN Reason: Opioid Reversal Last Admin: 02/26/24 02:02 Dose: 0.2 mg Pantoprazole Sodium (Pantoprazole 40 Mg/10 Ml Vial) 40 mg IVP DAILY [facility] Last Admin: 03/13/24 10:41 Dose: 40 mg Thiamine HCl (Thiamine 100 Mg Tab) 100 mg PO BID-W/MEALS [facility] Last Admin: 03/14/24 05:12 Dose: 100 mg PHYSICAL EXAMINATION: GENERAL: The patient is alert and oriented x4, Well developed, well nourished. Appears older than stated age, obese HEENT: Pupils are round and equally reacting to light. EOMI. no scleral icterus. No conjunctival pallor. Normocephalic, atraumatic. No pharyngeal erythema. No thyromegaly. CARDIOVASCULAR: S1 and S2 muffled PULMONARY: diminished breath sounds bilaterally with some coarse scattered rhonchi noted. Upper bronchial congestion noted that patient clears relatively well ABDOMEN: soft. Nontender on exam. obese. non-distended, normoactive bowel sounds. No palpable organomegaly. Large ostomy noted MUSCULOSKELETAL: No joint swelling or deformity. EXTREMITIES: No cyanosis, clubbing, or pedal edema. NEUROLOGICAL: Gross neurological examination did not reveal any focal deficits. Diffuse weakness SKIN: No rashes. 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 Patient has been transitioned out of the ICU on stepdown and doing relatively well Patient to continue current medication regimen including IV Zosyn with infectious disease following. Plan will be for 10 days to 2 weeks on discharge of IV antibiotic therapy Case management/social work following and will be arranging for ECF for con tinued fpc along with IV antibiotic therapy and significant wounds Recommend aspiration precautions at all times with head of the bed elevated 30 to 45 degrees and assistance with feeds. Patient is chronically also maintained on TPN Await updated PT/OT therapy notes and patient will likely require insurance authorization for ECF Due to multiple complex medical issues, overall prognosis is guarded Consider discharge planning early next week The impression and plan of care has been dictated as a scribe by Alyssa Hernandez, nurse practitioner as directed. Dr. Gerry MD I have performed a history and examination and MDM of this patient, discussed the same with the dictator, and agree with the dictator's assessment and plan as written ,documented as a scribe. Based on total visit time, I have performed more than 50% of the visit. Any additional findings or plans will be noted. Objective - Vital Signs Vital signs: Vital Signs Temp 98.4 F 03/14/24 03:29 Pulse 81 03/14/24 03:29 Resp 20 03/14/24 03:29 BP 119/62 03/14/24 03:29 Pulse Ox 96 03/14/24 04:38 FiO2 35 03/14/24 04:38 Intake & Output 03/13/24 03/14/24 03/14/24 18:59 06:59 18:59 Intake Total 222 Output Total 725 2500 Balance -503 -2500 Weight 95.5 kg 95.5 kg Intake: Oral 222 Output: Urine 225 500 Stool 500 2000 Other: Voiding Method Indwelling Catheter Indwelling Catheter # Bowel Movements 850 ABP, PAP, CO, CI - Last Documented Arterial Blood Pressure 91/88 - Labs CBC & Chem 7: 03/13/24 06:50 03/14/24 10:08 Labs: Abnormal Lab Results - Last 24 Hours (Table) 03/13/24 03/13/24 03/14/24 Range/Units 11:28 16:12 00:00 POC Glucose (mg/dL) 166 H 145 H 122 H (70-110) mg/dL
[2024-03-15 08:47] LABS: African American GFR (CKD) >90 (>60 ml/min/1.73 sqM); Anion Gap 7 mmol/L; Blood Urea Nitrogen 20 mg/dL (9-20); Calcium 9.8 mg/dL (8.4-10.2); Carbon Dioxide 29 mmol/L (22-30); Chloride 103 mmol/L (98-107); Glucose 112 mg/dL (74-99); Magnesium 1.9 mg/dL (1.6-2.3); Non-African American GFR(CKD) >90 (>60 ml/min/1.73 sqM); Phosphorus 3.4 mg/dL (2.5-4.5); Potassium 4.6 mmol/L (3.5-5.1); Sodium 139 mmol/L (137-145)
--- NOTE | 2024-03-15 10:51 | P.PN ---
Progress Note - Text Progress Note Date: 03/15/24 CHIEF COMPLAINT: Respiratory failure HISTORY OF PRESENT ILLNESS: Patient is status post tracheostomy placement. Patient currently on a regular medical floor. No new complaints. Afebrile. PHYSICAL EXAM: VITAL SIGNS: Reviewed. GENERAL: sleeping comfortably HEENT: Tracheostomy site with gauze in place. No drainage noted. ASSESSMENT: 1. Acute hypoxic and hypercapnic respiratory failure. Patient having difficulty weaning from the vent. Status post tracheostomy placement 2. Tracheal stenosis. Prior history of tracheostomy PLAN: -Continue pressure relief at trach site with gauze due to skin irritation at trach site [facility] [phone]
[2024-03-15 11:25] LABS: Anisocytosis Slight; Basophils % (A) 1 %; Eosinophils % (A) 1 %; HCT 35.2 % (39.0-53.0); HGB 10.2 gm/dL (13.0-17.5); Hypochromasia Marked; Lymphocytes # (A) 1.5 k/uL (1.0-4.8); Lymphocytes % (A) 23 %; MCH 25.4 pg (25.0-35.0); MCHC 28.8 g/dL (31.0-37.0); Mean Platelet Volume 8.8; Monocytes # (A) 0.3 k/uL (0-1.0); Monocytes % (A) 4 %; Neutrophils # (A) 4.6 k/uL (1.3-7.7); Neutrophils % (A) 70 %; Platelet Count 307 k/uL (150-450); RDW 16.2 % (11.5-15.5); WBC 6.5 k/uL (3.8-10.6)
[2024-03-15 12:11] LABS: Glucose,Whole Blood 134 mg/dL (70-110)
--- NOTE | 2024-03-15 13:58 | P.PN ---
Subjective Progress Note Date: 03/15/24 This is a pleasant 48-year-old male who was recently admitted with hypoxia concerns of pneumonia initially with significant mucous plugging being followed by multiple consultations in the ICU with concerns of sepsis and difficulty weaning requiring tracheostomy. Cultures finalized from the sputum with Pseudomonas and is maintained on antibiotics in the form of Zosyn with infectious disease following. Patient doing well on tracheostomy and planning on ECF possibly in the next few days early next week. Patient is afebrile and will continue antibiotics with the plans for 10 days to 2 weeks on IV antibiotic therapy on discharge. Will discuss further with case management/social work regarding discharge planning. Patient has been moved out of the ICU and remained stable at this time. Recommend aspiration precautions and sitting with the head of the bed elevated 30 to 45 degrees at all times 03/14/2024 Patient is seen in follow-up today with no acute overnight issues noted. Patient is tolerating oral intake and also continued on TPN. Patient does have a PICC line and will be continuing on 10 days to 2 weeks of Zosyn on discharge per ID recommendations. Case management/social work following working on accepting ECF and currently [facility] is reviewing. Patient is afebrile with no reports of increasing shortness of breath and denies chest pain. 03/15/2024 Patient is seen in follow-up today with no acute overnight issues noted patient per nursing staff did have 1 brief episode of blood in the ostomy that was minute although will order stat CBC patient has had no further episodes. Patient is afebrile with no reports of chest pain or worsening shortness of breath tolerating tracheostomy and is continued on diet along with TPN and will continue. Patient continues on IV Zosyn with infectious disease following and will discuss further with case management/social work regarding discharge planning and currently awaiting an accepting ECF. Multiple other facilities have received the patient thus far. Patient will need continued IV antibiotic therapy on discharge for 10 days to 2 weeks. Review of systems: Constitutional: No reports of fatigue, fever, or chills Cardiovascular: No reports of chest pain or palpitations Respiratory: No reports of shortness of breath or cough GI: No reports of nausea, no reports of vomiting, chronic loose stool in the ostomy, tolerating oral intake. : No reports of dysuria or retention Neurovascular: reports of generalized weakness, mostly bedbound All medications have been reviewed PHYSICAL EXAMINATION: GENERAL: The patient is alert and oriented x4, Well developed, well nourished. Appears older than stated age, obese HEENT: Pupils are round and equally reacting to light. EOMI. no scleral icterus. No conjunctival pallor. Normocephalic, atraumatic. No pharyngeal erythema. No thyromegaly. CARDIOVASCULAR: S1 and S2 muffled PULMONARY: diminished breath sounds bilaterally with some coarse scattered rhonchi noted. Upper bronchial congestion noted that patient clears relatively well ABDOMEN: soft. Nontender on exam. obese. non-distended, normoactive bowel sounds. No palpable organomegaly. Large ostomy noted MUSCULOSKELETAL: No joint swelling or deformity. EXTREMITIES: No cyanosis, clubbing, or pedal edema. NEUROLOGICAL: Gross neurological examination did not reveal any focal deficits. Diffuse weakness SKIN: No rashes. 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 Patient has been transitioned out of the ICU on stepdown and doing relatively well Per nursing staff patient did have blood noted in the ostomy with 1 episode and has not occurred again. Stat CBC ordered and hemoglobin is improved above 10. Monitor for any further signs of active bleeding once in ECF has been accepted Patient to continue current medication regimen including IV Zosyn with infectious disease following. Plan will be for 10 days to 2 weeks on discharge of IV antibiotic therapy Case management/social work following and will be arranging for ECF for continued shelter along with IV antibiotic therapy and significant wounds Recommend aspiration precautions at all times with head of the bed elevated 30 to 45 degrees and assistance with feeds. Patient is chronically also maintained on TPN Await updated PT/OT therapy notes and patient will likely require insurance authorization for ECF Due to multiple complex medical issues, overall prognosis is guarded Consider discharge planning once an ECF is accepting the patient The impression and plan of care has been dictated as a scribe by Alyssa Hernandez, nurse practitioner as directed. Dr. Gerry MD I have performed a history and examination and MDM of this patient, discussed the same with the dictator, and agree with the dictator's assessment and plan as written ,documented as a scribe. Based on total visit time, I have performed more than 50% of the visit. Any additional findings or plans will be noted. Objective - Vital Signs Vital signs: Vital Signs Temp 99.0 F 03/15/24 03:28 Pulse 92 03/15/24 03:28 Resp 20 03/15/24 03:28 BP 136/72 03/15/24 03:28 Pulse Ox 94 L 03/15/24 03:28 FiO2 35 03/14/24 09:41 Intake & Output 03/14/24 03/15/24 03/15/24 18:59 06:59 18:59 Intake Total 1299.5 200 Output Total 2900 2600 Balance -1600.5 -2400 Intake: IV 10 200 Invasive Line 5 10 20 KVO 80 Piperacillin-Tazobactam 3 100 .375 gm In Sodium Chloride 0.9% 100 ml @ 25 mls/hr IVPB Q8H [facility] Rx#: [id number] Intake, IV Titration 1049.5 Amount Mvi, Adult No.4 with Vit 1049.5 K 10 ml Trace (Conc-1Ml/ Dose) 1 ml Sodium Chloride 4Meq/ml Vial 56 meq Potassium Acetate 10 meq Calcium Gluconate 1 gm Magnesium Sulfate gm 1 .25 gm Sodium Phosphate 21 mmol In Amino Acids 5 %/Dextrose 20 % 1,000 ml @ 45 mls/hr IV .[id number] [facility] Rx#:[id number] Oral 240 Output: Urine 600 600 Stool 2300 2000 Other: Voiding Method Indwelling Catheter Indwelling Catheter ABP, PAP, CO, CI - Last Documented Arterial Blood Pressure 91/88 - Labs CBC & Chem 7: 03/15/24 10:03 03/15/24 07:40 Labs: Abnormal Lab Results - Last 24 Hours (Table) 03/14/24 03/14/24 03/14/24 Range/Units 10:08 11:47 16:29 BUN 22 H (9-20) mg/dL Creatinine 0.52 L (0.66-1.25) mg/dL Glucose 112 H (74-99) mg/dL POC Glucose (mg/dL) 140 H 156 H (70-110) mg/dL 03/14/24 Range/Units 23:52 BUN (9-20) mg/dL Creatinine (0.66-1.25) mg/dL Glucose (74-99) mg/dL POC Glucose (mg/dL) 128 H (70-110) mg/dL
--- NOTE | 2024-03-15 14:23 | P.PN ---
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 On today's evaluation that is 03/14/2024, patient did not have any fever and denies any chills, patient is breathing comfortably on trach collar patient with no chest pain or any worsening cough patient did not have any abdominal pain nausea vomiting, tolerating his diet. Patient did have a creatinine 0.52 no CBC was done today Objective - Vital Signs Vital signs: Vital Signs Temp 98.5 F 03/14/24 13:00 Pulse 100 03/14/24 13:00 Resp 20 03/14/24 13:00 BP 112/57 03/14/24 13:00 Pulse Ox 92 L 03/14/24 13:00 FiO2 35 03/14/24 09:41 Intake & Output 03/13/24 03/14/24 03/14/24 18:59 06:59 18:59 Intake Total 222 1299.5 Output Total 725 2500 600 Balance -503 -2500 699.5 Weight 95.5 kg 95.5 kg Intake: IV 10 Invasive Line 5 10 Intake, IV Titration 1049.5 Amount Mvi, Adult No.4 with Vit 1049.5 K 10 ml Trace (Conc-1Ml/ Dose) 1 ml Sodium Chloride 4Meq/ml Vial 56 meq Potassium Acetate 10 meq Calcium Gluconate 1 gm Magnesium Sulfate gm 1 .25 gm Sodium Phosphate 21 mmol In Amino Acids 5 %/Dextrose 20 % 1,000 ml @ 45 mls/hr IV .[id number] [facility] Rx#:[id number] Oral 222 240 Output: Urine 225 500 600 Stool 500 2000 Other: Voiding Method Indwelling Catheter Indwelling Catheter Indwelling Catheter # Bowel Movements 850 ABP, PAP, CO, CI - Last Documented Arterial Blood Pressure 91/88 - Exam GENERAL DESCRIPTION: Middle-age man lying in bed in no distress RESPIRATORY SYSTEM: Unlabored breathing , decreased intensity of breath sounds HEART: S1 S2 regular rate and rhythm , ABDOMEN: Soft , no tenderness - Labs CBC & Chem 7: 03/15/24 10:03 03/15/24 07:40 Labs: Abnormal Lab Results - Last 24 Hours (Table) 03/13/24 03/14/24 03/14/24 Range/Units 16:12 00:00 10:08 BUN 22 H (9-20) mg/dL Creatinine 0.52 L (0.66-1.25) mg/dL Glucose 112 H (74-99) mg/dL POC Glucose (mg/dL) 145 H 122 H (70-110) mg/dL 03/14/24 Range/Units 11:47 BUN (9-20) mg/dL Creatinine (0.66-1.25) mg/dL Glucose (74-99) mg/dL POC Glucose (mg/dL) 140 H (70-110) mg/dL Assessment and Plan (1) Pneumonia Current Visit: No Status: Acute Code(s): J18.9 - PNEUMONIA, UNSPECIFIED ORGANISM SNOMED Code(s): 206796065 (2) Sepsis Current Visit: No Status: Acute Code(s): A41.9 - SEPSIS, UNSPECIFIED ORGANISM SNOMED Code(s): 42720993 Plan: 1patient presented to hospital with sepsis in this patient who did have a low- grade fever elevated white count tachycardia meeting criteria for SIRS source likely pneumonia at this patient presenting with increasing shortness of breath cough with evidence of right-sided infiltrate, patient has been admitted to the hospital and will need to cover for resistant gram-positive as well as gram- negative 2-patient is status post bronchoscopy and lavage completed on 03/02/2024 cultures currently growing Pseudomonas that is resistant to cefepime, 3-patient is afebrile white count is normal and chest x-ray did shows improvement, currently on Zosyn and will monitor clinical course closely Dictation was produced using [employer] dictation software. please excuse any grammatical, word or spelling errors. Time with Patient: Less than 30
--- NOTE | 2024-03-15 14:24 | P.PN ---
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 On today's evaluation that is 03/15/2024, Patient is afebrile patient is currently on trach collar and denies having any shortness of breath, the patient denies any chest pain or any worsening cough, the patient denies any nausea vomiting did not have any abdominal pain, patient is tolerating his diet Patient white count 6.5, creatinine 0.60 Objective - Vital Signs Vital signs: Vital Signs Temp 98.2 F 03/15/24 12:36 Pulse 89 03/15/24 12:36 Resp 20 03/15/24 12:36 BP 122/60 03/15/24 12:36 Pulse Ox 91 L 03/15/24 12:36 FiO2 35 03/15/24 08:37 Intake & Output 03/14/24 03/15/24 03/15/24 18:59 06:59 18:59 Intake Total 1299.5 200 1059.5 Output Total 2900 2600 1350 Balance -1600.5 -2400 -290.5 Intake: IV 10 200 10 Invasive Line 5 10 20 10 KVO 80 Piperacillin-Tazobactam 3 100 .375 gm In Sodium Chloride 0.9% 100 ml @ 25 mls/hr IVPB Q8H [facility] Rx#: [id number] Intake, IV Titration 1049.5 1049.5 Amount Mvi, Adult No.4 with Vit 1049.5 1049.5 K 10 ml Trace (Conc-1Ml/ Dose) 1 ml Sodium Chloride 4Meq/ml Vial 56 meq Potassium Acetate 10 meq Calcium Gluconate 1 gm Magnesium Sulfate gm 1 .25 gm Sodium Phosphate 21 mmol In Amino Acids 5 %/Dextrose 20 % 1,000 ml @ 45 mls/hr IV .[id number] [facility] Rx#:[id number] Oral 240 Output: Urine 600 600 200 Stool 2300 2000 1150 Other: Voiding Method Indwelling Catheter Indwelling Catheter Indwelling Catheter ABP, PAP, CO, CI - Last Documented Arterial Blood Pressure 91/88 - Exam GENERAL DESCRIPTION: Middle-age man lying in bed in no distress RESPIRATORY SYSTEM: Unlabored breathing , decreased intensity of breath sounds HEART: S1 S2 regular rate and rhythm , ABDOMEN: Soft , no tenderness - Labs CBC & Chem 7: 03/15/24 10:03 03/15/24 07:40 Labs: Abnormal Lab Results - Last 24 Hours (Table) 03/14/24 03/14/24 03/15/24 Range/Units 16:29 23:52 07:40 RBC (4.30-5.90) m/uL Hgb (13.0-17.5) gm/dL Hct (39.0-53.0) % MCHC (31.0-37.0) g/dL RDW (11.5-15.5) % Creatinine 0.60 L (0.66-1.25) mg/dL Glucose 112 H (74-99) mg/dL POC Glucose (mg/dL) 156 H 128 H (70-110) mg/dL 03/15/24 03/15/24 Range/Units 10:03 12:09 RBC 4.00 L (4.30-5.90) m/uL Hgb 10.2 L (13.0-17.5) gm/dL Hct 35.2 L (39.0-53.0) % MCHC 28.8 L (31.0-37.0) g/dL RDW 16.2 H (11.5-15.5) % Creatinine (0.66-1.25) mg/dL Glucose (74-99) mg/dL POC Glucose (mg/dL) 134 H (70-110) mg/dL Assessment and Plan (1) Pneumonia Current Visit: No Status: Acute Code(s): J18.9 - PNEUMONIA, UNSPECIFIED ORGANISM SNOMED Code(s): 427746464 (2) Sepsis Current Visit: No Status: Acute Code(s): A41.9 - SEPSIS, UNSPECIFIED ORGANISM SNOMED Code(s): 43062245 Plan: 1patient presented to hospital with sepsis in this patient who did have a low- grade fever elevated white count tachycardia meeting criteria for SIRS source likely pneumonia at this patient presenting with increasing shortness of breath cough with evidence of right-sided infiltrate, patient has been admitted to the hospital and will need to cover for resistant gram-positive as well as gram- negative 2-patient is status post bronchoscopy and lavage completed on 03/02/2024 cultures currently growing Pseudomonas that is resistant to cefepime, 3-patient is afebrile white count is normal and chest x-ray did shows improvement, currently on Zosyn day #10, the patient has received adequate antibiotics for his underlying pneumonia and will no need for any antibiotic on discharge Dictation was produced using [employer] dictation software. please excuse any grammatical, word or spelling errors. Time with Patient: Less than 30
--- NOTE | 2024-03-15 14:43 | P.PN ---
Subjective Progress Note Date: 03/15/24 Principal diagnosis: Acute hypoxic and hypercapnic respiratory failure requiring intubation on 02/26/2024, tracheostomy on 03/05/2024 Patient is a 48-year-old male with complex past medical history including CVA, previous DVTs, right BKA, cardiac arrest in 2021, Crohn's disease, enterocutaneous fistulas, previous bowel resection, ventilator dependent respiratory failure, previous tracheostomy and reversal. Recently was admitted 12/13/2023 through 12/25/2023 for pneumonia and respiratory failure due to mucous plugging. He was intubated and placed on mechanical ventilator for approximately 6 days. He did have a bronchoscopy with BAL, microbiology positive for haemophilus influenza. Eventually, discharged home, and returned 01/02/24 for GIB from his ostomy. Was reintubated and did spend some time on the ventilator for reccurent pneumonia and mucous plugging. During this time, had multiple bronchoscopies with BAL, once on 12/31/2023 and again on 01/03/2024, isolated organisms including MRSA and Pseudomonas. Patient was eventually discharged back home on 01/16/2024. More recently, patient had an ER visit for increased work of breathing on February 22, and the patient was sent home. Returned for similar symptoms yesterday afternoon. Chest x-ray done on [facility] [place] showing cardiomegaly with pulmonary vascular congestion and questionable right lower lobe infiltrate or effusion. CBC: WBC count 11.2, hemoglobin 10.5, hematocrit 37.3, platelets 315. CMP: Sodium 138, potassium 4.8, chloride 97, serum bicarb 39, BUN 23, creatinine 0.45, glucose 103. Lactic 1. LFTs unremarkable. Troponin less than 0.012. I am evaluating this patient emergency department, he is currently unresponsive, to even painful stimuli. He is on a 15 L nonrebreather. SpO2 88%. Diminished breath sounds on the right Will place this patient on BiPAP with initial settings 16/5 FiO2 to be titrated accordingly. Will get a stat ABG. We will repeat chest x-ray. I did talk to the patient's son, Alan, he is adamant that the patient remain a full code, would want the patient intubated if necessary. On reassessment in the emergency department, patient remained on BiPAP with set tings 16/5 100%. He remains unresponsive to painful stimuli. Now only achieving tidal volumes ranging from 100 to 200 cc. Unfortunately, we were not able to to get an initial blood gas. I recommended that the patient be moved to the trauma bay and intubated by the [facility]. Follow-up chest x-ray showing the endotracheal tube in appropriate position above the avery. Orogastric tube coursing below the diaphragm. Initial ventilator settings include assist- control, respiratory rate 20, tidal volume 500, FiO2 100%, PEEP of 5. Currently, patient is fairly asynchronous with the ventilator and he is biting the tube. There are copious amounts of blood-tinged sputum in the ET tube. Elevated peak airway pressures of 45. Static pressure 32. The nurses are working on appropriately sedating the patient with propofol. Postintubation, the patient did become hypotensive, currently receiving his second liter of normal saline. Will also start the patient on norepinephrine to maintain a MAP of grea ter than 65 mmHg. I did insert a left femoral arterial line. Following this, we did obtain an ABG showing profound hypercapnic and hypoxic respiratory failure. PaO2 of 89, pCO2 98, pH of 7.11. Appropriate ventilator adjustments were made including increasing the rate to 26 and PEEP can be increased to 8. Patient may eventually need repeat bronchoscopy with BAL. Case will be discussed with Dr. Munoz. Patient is still waiting for a bed in the intensive care unit. I did call and update patient's son Alan about his change in clinical condition. On 03/07/2024, the patient is awake and alert and the patient is currently off propofol. The patient is still on the mechanical ventilator assist-control mode rate of 16, tidal volume of 500, FiO2 50% with a PEEP of 6. Calm and comfortable and breathing comfortable. No significant secretions through the tracheostomy tube. Remains on IV Zosyn. He does have pseudomonal pneumonia for which she is on IV Zosyn based on antibiotic sensitivities. Remains on TPN and this was increased up to 60 cc an hour. Remains on anticoagulation with Lovenox 80 mg subcu every 12 hours. Ileostomy is still active and the patient is producing approximately 1000 cc of gastric output over the past 8 hours. Fluid balance -600 cc over the past 24 hours. White cell count is at 4.9 with a hemoglobin 8.8 and a platelet count of 255. BUN is 10 with a creatinine of 0.4 and the sodium is at 137 and a potassium level is at 4.1. Awake and alert and communicating. Profound weakness of lower extremities along with significant muscle atrophy. On 03/08/2024, the patient is on a T-piece at 40% FiO2. No significant respiratory secretions., Comfortable and awake and communicating. He is asking for some oral intake of food. No respiratory difficulties. Remains on TPN at rate of 60 cc an hour. Ileostomy output has been 1500 over the past 8 hours. Fluid balance is 0. Remains on low-dose norepinephrine 0.04 mcg/kg/min. The white cell count of 5 with a hemoglobin 8.3 and a platelet count of 236. BUN is 8 with a creatinine of 0.37 and sodium levels at 137. He remains on IV Zosyn regarding his pseudomonal pneumonia. Chest x-ray findings are also stable. Patient was evaluated today on 03/09/2024, patient remains on T-piece, at 35% FiO2, seems to be fairly comfortable, does not seem to be in any distress, he is awake, communicating, does not seem to be in distress, still on TPN, 60 mL/h, patient is receiving treatment for pseudomonal infection/pneumonia and he is on Zosyn. Patient is to have a swallow evaluation today and possibly allow oral feeding. His tracheostomy was placed on 03/05, patient is still requiring low- dose norepinephrine at 0.01 mcg/kg/min. Basic metabolic profile is normal, bicarb is 37 BUN is 9 creatinine 0.41 chest x-ray continues show interstitial opacities with slight improvement specially in the right and left basilar areas Patient was evaluated today on 03/10/2024 remains in the ICU remains on T-piece at 28% FiO2 patient passed his swallow evaluation yesterday and now he is allowed to have oral feedings, in the meantime he is on TPN at 85 cc/h he is off norepinephrine since 5 AM this morning. Remains on Zosyn for his pseudomonal infection cough seems to be deflated for him to swallow and tolerate oral diet. Not much has happened in the last 24 hours otherwise. Labs were reviewed WBC count is 4.3 hemoglobin 9.3 basic metabolic profile is normal renal profile is normal Seen today on 03/12/2024, patient is doing well, he is on the medical floor, not in any distress, on 28% trach collar, remains on antibiotics, he is not requiring any pressors, hemodynamically stable, patient has a speaking valve and able to communicate. Denies any specific symptoms.WBC count is 6.2 hemoglobin is 10.1 electrolytes are normal renal profile is normal Patient was evaluated today on 03/13/2024, remains on trach collar, does not seem to be in any distress, WBC count 7.3 hemoglobin 9.3 electrolytes are normal potassium is a bit high at 5.3 renal profile is normal, overall the patient is doing great. Seen today on 03/14/2024, patient is doing well, being fed by his mother at bedside, patient is asymptomatic otherwise. Trach collar remains in place, patient is tolerating trach collar well, hardly any cough no wheezing no shortness of breath no chest pain no fever no chills no hemoptysis.Labs from today including basic metabolic profile noted and basically unremarkable on 03/15/2024, patient is basically about the same. Patient is laying in bed, being fed by his mother, tolerating feeding quite well, does not seem to be in any distress, continues to have trach collar in place, overall the patient is doing great, and eventually needs to be discharged home.WBC count 6.5 hemoglobin 10.2 basic metabolic profile is normal and renal profile is normal Objective - Vital Signs Vital signs: Vital Signs Temp 98.2 F 03/15/24 12:36 Pulse 89 03/15/24 12:36 Resp 20 03/15/24 12:36 BP 122/60 03/15/24 12:36 Pulse Ox 91 L 03/15/24 12:36 FiO2 35 03/15/24 08:37 Intake & Output 03/14/24 03/15/24 03/15/24 18:59 06:59 18:59 Intake Total 1299.5 200 1059.5 Output Total 2900 2600 1350 Balance -1600.5 -2400 -290.5 Intake: IV 10 200 10 Invasive Line 5 10 20 10 KVO 80 Piperacillin-Tazobactam 3 100 .375 gm In Sodium Chloride 0.9% 100 ml @ 25 mls/hr IVPB Q8H FOR[facility]LY [facility], 1928–1983 Rx#: [id number] Intake, IV Titration 1049.5 1049.5 Amount Mvi, Adult No.4 with Vit 1049.5 1049.5 K 10 ml Trace (Conc-1Ml/ Dose) 1 ml Sodium Chloride 4Meq/ml Vial 56 meq Potassium Acetate 10 meq Calcium Gluconate 1 gm Magnesium Sulfate gm 1 .25 gm Sodium Phosphate 21 mmol In Amino Acids 5 %/Dextrose 20 % 1,000 ml @ 45 mls/hr IV .[id number] [facility], 1928–1983 Rx#:[id number] Oral 240 0 Output: Urine 600 600 200 Stool 2300 2000 1150 Other: Voiding Method Indwelling Catheter Indwelling Catheter Indwelling Catheter ABP, PAP, CO, CI - Last Documented Arterial Blood Pressure 91/88 - Exam GENERAL: A 48-year-old male patient, currently has a tracheostomy 28% trach collar Tracheostomy is intact HEENT: No scleral icterus. No conjunctival pallor. Normocephalic, atraumatic. CARDIOVASCULAR: S1 and S2 present. No murmurs, rubs, or gallops. PULMONARY: Diminished breath sounds were bilaterally. No wheezes rhonchi or crackles ABDOMEN: Soft, nontender, nondistended, normoactive bowel sounds. No palpable organomegaly. Functioning ileostomy. 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 EXTREMITIES: No cyanosis, clubbing, or pedal edema. Right below-knee amputation is noted. NEUROLOGICAL: Profound weakness in all 4 extremities, weak cough, extensive muscle atrophy in all 4 extremities. Arousable and awake and follows simple commands and communicates. SKIN: No rashes. Left chest PICC line. - Labs CBC & Chem 7: 03/15/24 10:03 03/15/24 07:40 Labs: Abnormal Lab Results - Last 24 Hours (Table) 03/14/24 03/14/24 03/15/24 Range/Units 16:29 23:52 07:40 RBC (4.30-5.90) m/uL Hgb (13.0-17.5) gm/dL Hct (39.0-53.0) % MCHC (31.0-37.0) g/dL RDW (11.5-15.5) % Creatinine 0.60 L (0.66-1.25) mg/dL Glucose 112 H (74-99) mg/dL POC Glucose (mg/dL) 156 H 128 H (70-110) mg/dL 03/15/24 03/15/24 Range/Units 10:03 12:09 RBC 4.00 L (4.30-5.90) m/uL Hgb 10.2 L (13.0-17.5) gm/dL Hct 35.2 L (39.0-53.0) % MCHC 28.8 L (31.0-37.0) g/dL RDW 16.2 H (11.5-15.5) % Creatinine (0.66-1.25) mg/dL Glucose (74-99) mg/dL POC Glucose (mg/dL) 134 H (70-110) mg/dL Assessment and Plan Assessment: Impression: Acute hypoxic and hypercapnic respiratory failure, requiring mechanical intubation on 02/26/24. 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 Sepsis/septic shock secondary to above, recurrent pneumonia, currently low-dose norepinephrine Crohn's disease, with previous complication of bowel perforation s/p colectomy and diverting ileostomy. The patient also has had previous history of abdominal wall bleeding there is currently inactive and stable. The patient has a high output ileostomy TPN for nutritional support Electrolyte imbalance at time of admission including hyponatremia, hypokalemia, hypophosphatemia, hypomagnesemia and hyperphosphatemia, all resolved Tracheobronchomalacia History of DVT, on therapeutic dose of Lovenox CVA/TIA, with residual left-sided weakness Right BKA History of asystole/cardiac arrest in 2021 Plan: Continue trach collar Continue bronchodilators Continue Solu-Cortef, Continue nutritional support Continue antibiotics/Zosyn Consider placement Continue GI and DVT prophylaxis, patient is on Lovenox Time with Patient: Less than 30
[2024-03-15 16:30] LABS: Glucose,Whole Blood 128 mg/dL (70-110)
[2024-03-15] MEDS: PIPERACILLIN-TAZOBACTAM 3.375 GM in SODIUM CHLORIDE 0.9% 100 ML IVPB SCH (16:40)
[2024-03-16 00:10] LABS: Glucose,Whole Blood 118 mg/dL (70-110)
[2024-03-16 05:59] LABS: Glucose,Whole Blood 111 mg/dL (70-110)
[2024-03-16 11:18] LABS: African American GFR (CKD) >90 (>60 ml/min/1.73 sqM); Anion Gap 11 mmol/L; Blood Urea Nitrogen 22 mg/dL (9-20); Calcium 10.1 mg/dL (8.4-10.2); Carbon Dioxide 23 mmol/L (22-30); Chloride 103 mmol/L (98-107); Glucose 121 mg/dL (74-99); Magnesium 1.9 mg/dL (1.6-2.3); Non-African American GFR(CKD) >90 (>60 ml/min/1.73 sqM); Potassium 4.4 mmol/L (3.5-5.1); Sodium 137 mmol/L (137-145)
[2024-03-16 11:30] LABS: Glucose,Whole Blood 128 mg/dL (70-110)
--- NOTE | 2024-03-16 15:14 | P.PN ---
Subjective Progress Note Date: 03/16/24 Principal diagnosis: Hypoxia. Patient is a 48-year-old male with complex past medical history including CVA, previous DVTs, right BKA, cardiac arrest in 2021, Crohn's disease, ent erocutaneous fistulas, previous bowel resection, ventilator dependent respiratory failure, previous tracheostomy and reversal. Recently was admitted 12/13/2023 through 12/25/2023 for pneumonia and respiratory failure due to mucous plugging. He was intubated and placed on mechanical ventilator for a pproximately 6 days. He did have a bronchoscopy with BAL, microbiology positive for haemophilus influenza. Eventually, discharged home, and returned 01/02/24 for GIB from his ostomy. Was reintubated and did spend some time on the ventilator for reccurent pneumonia and mucous plugging. During this time, had multiple bronchoscopies with BAL, once on 12/31/2023 and again on 01/03/2024, isolated organisms including MRSA and Pseudomonas. Patient was eventually discharged back home on 01/16/2024. More recently, patient had an ER visit for increased work of breathing on February 22, and the patient was sent home. Returned for similar symptoms yesterday afternoon. Chest x-ray done on admission showing cardiomegaly with pulmonary vascular congestion and questionable right lower lobe infiltrate or effusion. CBC: WBC count 11.2, hemoglobin 10.5, hematocrit 37.3, platelets 315. CMP: Sodium 138, potassium 4.8, chloride 97, serum bicarb 39, BUN 23, creatinine 0.45, glucose 103. Lactic 1. LFTs unremarkable. Troponin less than 0.012. I am evaluating this patient emergency department, he is currently unresponsive, to even painful stimuli. He is on a 15 L nonrebreather. SpO2 88%. Diminished breath sounds on the right Will place this patient on BiPAP with initial settings 16/5 FiO2 to be titrated accordingly. Will get a stat ABG. We will repeat chest x-ray. I did talk to the patient's son, Alan, he is adamant that the patient remain a full code, would want the patient intubated if necessary. On reassessment in the emergency department, patient remained on BiPAP with settings 16/5 100%. He remains unresponsive to painful stimuli. Now only achieving tidal volumes ranging from 100 to 200 cc. Unfortunately, we were not able to to get an initial blood gas. I recommended that the patient be moved to the trauma bay and intubated by the [employer]. Follow-up chest x-ray showing the endotracheal tube in appropriate position above the avery. Orogastric tube coursing below the diaphragm. Initial ventilator settings include assist- control, respiratory rate 20, tidal volume 500, FiO2 100%, PEEP of 5. Currently, patient is fairly asynchronous with the ventilator and he is biting the tube. There are copious amounts of blood-tinged sputum in the ET tube. Elevated peak airway pressures of 45. Static pressure 32. The nurses are working on appropriately sedating the patient with propofol. Postintubation, the patient did become hypotensive, currently receiving his second liter of normal saline. Will also start the patient on norepinephrine to maintain a MAP of greater than 65 mmHg. I did insert a left femoral arterial line. Following this, we did obtain an ABG showing profound hypercapnic and hypoxic respiratory failure. PaO2 of 89, pCO2 98, pH of 7.11. Appropriate ventilator adjustments were made including increasing the rate to 26 and PEEP can be increased to 8. Patient may eventually need repeat bronchoscopy with BAL. Case will be discussed with Dr. Munoz. Patient is still waiting for a bed in the intensive care unit. I did call and update patient's son Alan about his change in clinical condition. On 03/07/2024, the patient is awake and alert and the patient is currently off propofol. The patient is still on the mechanical ventilator assist-control mode rate of 16, tidal volume of 500, FiO2 50% with a PEEP of 6. Calm and comfortable and breathing comfortable. No significant secretions through the tracheostomy tube. Remains on IV Zosyn. He does have pseudomonal pneumonia for which she is on IV Zosyn based on antibiotic sensitivities. Remains on TPN and this was increased up to 60 cc an hour. Remains on anticoagulation with Lovenox 80 mg subcu every 12 hours. Ileostomy is still active and the patient is producing approximately 1000 cc of gastric output over the past 8 hours. Fluid balance -600 cc over the past 24 hours. White cell count is at 4.9 with a hemoglobin 8.8 and a platelet count of 255. BUN is 10 with a creatinine of 0.4 and the sodium is at 137 and a potassium level is at 4.1. Awake and alert and communicating. Profound weakness of lower extremities along with significant muscle atrophy. On 03/08/2024, the patient is on a T-piece at 40% FiO2. No significant respiratory secretions., Comfortable and awake and communicating. He is asking for some oral intake of food. No respiratory difficulties. Remains on TPN at rate of 60 cc an hour. Ileostomy output has been 1500 over the past 8 hours. Fluid balance is 0. Remains on low-dose norepinephrine 0.04 mcg/kg/min. The white cell count of 5 with a hemoglobin 8.3 and a platelet count of 236. BUN is 8 with a creatinine of 0.37 and sodium levels at 137. He remains on IV Zosyn regarding his pseudomonal pneumonia. Chest x-ray findings are also stable. Patient was evaluated today on 03/09/2024, patient remains on T-piece, at 35% FiO2, seems to be fairly comfortable, does not seem to be in any distress, he is awake, communicating, does not seem to be in distress, still on TPN, 60 mL/h, patient is receiving treatment for pseudomonal infection/pneumonia and he is on Zosyn. Patient is to have a swallow evaluation today and possibly allow oral feeding. His tracheostomy was placed on 03/05, patient is still requiring low- dose norepinephrine at 0.01 mcg/kg/min. Basic metabolic profile is normal, bicarb is 37 BUN is 9 creatinine 0.41 chest x-ray continues show interstitial opacities with slight improvement specially in the right and left basilar areas Patient was evaluated today on 03/10/2024 remains in the ICU remains on T-piece at 28% FiO2 patient passed his swallow evaluation yesterday and now he is allowed to have oral feedings, in the meantime he is on TPN at 85 cc/h he is off norepinephrine since 5 AM this morning. Remains on Zosyn for his pseudomonal infection cough seems to be deflated for him to swallow and tolerate oral diet. Not much has happened in the last 24 hours otherwise. Labs were reviewed WBC count is 4.3 hemoglobin 9.3 basic metabolic profile is normal renal profile is normal Seen today on 03/12/2024, patient is doing well, he is on the medical floor, not in any distress, on 28% trach collar, remains on antibiotics, he is not requiring any pressors, hemodynamically stable, patient has a speaking valve and able to communicate. Denies any specific symptoms.WBC count is 6.2 hemoglobin is 10.1 electrolytes are normal renal profile is normal Patient was evaluated today on 03/13/2024, remains on trach collar, does not seem to be in any distress, WBC count 7.3 hemoglobin 9.3 electrolytes are normal potassium is a bit high at 5.3 renal profile is normal, overall the patient is doing great. Seen today on 03/14/2024, patient is doing well, being fed by his mother at bedside, patient is asymptomatic otherwise. Trach collar remains in place, patient is tolerating trach collar well, hardly any cough no wheezing no shortness of breath no chest pain no fever no chills no hemoptysis.Labs from [facility] including basic metabolic profile noted and basically unremarkable on 03/15/2024, patient is basically about the same. Patient is laying in bed, being fed by his mother, tolerating feeding quite well, does not seem to be in any distress, continues to have trach collar in place, overall the patient is doing great, and eventually needs to be discharged home.WBC count 6.5 hemoglobin 10.2 basic metabolic profile is normal and renal profile is normal Progress note dated March 16, 2024. 48-year-old male who is now been here in the hospital for 20 days. The patient is seen today in room 367. The patient is on 35% trach collar. The patient is receiving IV Zosyn, and TPN at 45 cc an hour. The patient is laying nearly flat in bed. In no distress whatsoever. Current laboratory data includes a sodium 137, potassium 4.4, chlorides 103, CO2 23, BUN 22, creatinine 0.46. Glucose is 128. Calcium 10.1, phosphorus 3.0, magnesium 1.9. Bronchoscopy, with BAL, on March 02, revealed evidence of Pseudomonas aeruginosa, which was also discovered in his sputum, on February 25. Objective - Vital Signs Vital signs: Vital Signs Temp 98.7 F 03/16/24 13:15 Pulse 87 03/16/24 13:15 Resp 20 03/16/24 13:15 BP 115/61 03/16/24 13:15 Pulse Ox 92 L 03/16/24 13:15 FiO2 35 03/16/24 13:15 Intake & Output 03/15/24 03/16/24 03/16/24 18:59 06:59 18:59 Intake Total 1079.5 20 1549.5 Output Total 2550 800 900 Balance -1470.5 -780 649.5 Weight 67 kg 67 kg Intake: IV 30 20 20 Invasive Line 5 30 20 20 Intake, IV Titration 1049.5 1049.5 Amount Mvi, Adult No.4 with Vit 1049.5 1049.5 K 10 ml Trace (Conc-1Ml/ Dose) 1 ml Sodium Chloride 4Meq/ml Vial 56 meq Potassium Acetate 10 meq Calcium Gluconate 1 gm Magnesium Sulfate gm 1 .25 gm Sodium Phosphate 21 mmol In Amino Acids 5 %/Dextrose 20 % 1,000 ml @ 45 mls/hr IV .[id number] [facility] Rx#:[id number] Oral 0 480 Output: Urine 400 Stool 2150 800 900 Other: Voiding Method Indwelling Catheter Indwelling Catheter Indwelling Catheter ABP, PAP, CO, CI - Last Documented Arterial Blood Pressure 91/88 - Exam No acute distress, oriented 3. Lying flat in bed. Trach collar in place. HEENT examination is grossly unremarkable. Mucous membranes are moist. No oral lesions. Neck supple. Full range of motion. No adenopathy thyromegaly or neck vein distention. Midline tracheostomy is noted. Cardiovascular examination reveals regular rhythm rate. S1-S2 normal. No S3 or S4. No discernible murmur noted. Lungs reveal clear breath sounds. Breath sounds are equal bilaterally. No adventitious lung sounds including wheezes rhonchi or crackles. Abdomen soft, nontender, with functioning ileostomy. The patient also has an enterocutaneous fistula over the anterior abdominal wall. Extremities are intact. No cyanosis clubbing or edema. Skin is without rash or lesion. Neurologic examination is brief but nonfocal. - Labs CBC & Chem 7: 03/15/24 10:03 03/16/24 10:46 Labs: Abnormal Lab Results - Last 24 Hours (Table) 03/15/24 03/16/24 03/16/24 Range/Units 16:26 00:09 05:57 BUN (9-20) mg/dL Creatinine (0.66-1.25) mg/dL Glucose (74-99) mg/dL POC Glucose (mg/dL) 128 H 118 H 111 H (70-110) mg/dL 03/16/24 03/16/24 Range/Units 10:46 11:29 BUN 22 H (9-20) mg/dL Creatinine 0.46 L (0.66-1.25) mg/dL Glucose 121 H (74-99) mg/dL POC Glucose (mg/dL) 128 H (70-110) mg/dL Assessment and Plan Assessment: Acute hypoxemic and hypercapnic respiratory failure, requiring intubation and mechanical ventilation on February 26, 2024. S/P tracheostomy on March 05, 2024. Pseudomonas aeruginosa pneumonia. 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 Sepsis/septic shock, secondary to Pseudomonas pneumonia. Crohn's disease, status post bowel perforation, colectomy, and diverting ileostomy. TPN for nutritional support. Profound electrolyte imbalance. Tracheobronchomalacia. History of DVT. History of CVA/TIA, with residual left-sided weakness. Right BKA. History of asystole, 2021. Plan: Plan dated March 16, 2024. The patient was seen today in room 367. He is currently on 35% trach collar. He is getting TPN at 45 cc an hour. For his Pseudomonas infection, he continues on Zosyn. Labs, x-rays, and all medications are reviewed. The patient had a repeat tracheostomy performed on this admission. Apparently he had developed some tracheal stenosis from his previous tracheostomy. We are looking back to see whether or not we can identify whether or not there was some sort of defect or abnormality or tracheal flap noted on previous bronchoscopy. Prognosis is guarded. Time with Patient: Less than 30
[2024-03-16 16:58] LABS: Glucose,Whole Blood 126 mg/dL (70-110)
--- NOTE | 2024-03-16 18:04 | P.PN ---
Progress Note - Text Progress Note Date: 03/16/24 CHIEF COMPLAINT: Respiratory failure HISTORY OF PRESENT ILLNESS: Patient is status post tracheostomy placement. Patient currently on a regular medical floor. No new complaints. Afebrile. PHYSICAL EXAM: VITAL SIGNS: Reviewed. GENERAL: sleeping comfortably HEENT: Tracheostomy site with gauze in place. No drainage noted. ASSESSMENT: 1. Acute hypoxic and hypercapnic respiratory failure. Patient having difficulty weaning from the vent. Status post tracheostomy placement 2. Tracheal stenosis. Prior history of tracheostomy PLAN: -Continue pressure relief at trach site with gauze due to skin irritation at trach site [facility] [phone]
[2024-03-16 19:59] LABS: Glucose,Whole Blood 138 mg/dL (70-110)
--- NOTE | 2024-03-16 23:38 | P.PN ---
Subjective Progress Note Date: 03/16/24 This is a pleasant 48-year-old male who was recently admitted with hypoxia concerns of pneumonia initially with significant mucous plugging being followed by multiple consultations in the ICU with concerns of sepsis and difficulty weaning requiring tracheostomy. Cultures finalized from the sputum with Pseudomonas and is maintained on antibiotics in the form of Zosyn with infectious disease following. Patient doing well on tracheostomy and planning on ECF possibly in the next few days early next week. Patient is afebrile and will continue antibiotics with the plans for 10 days to 2 weeks on IV antibiotic therapy on discharge. Will discuss further with case management/social work regarding discharge planning. Patient has been moved out of the ICU and remained stable at this time. Recommend aspiration precautions and sitting with the head of the bed elevated 30 to 45 degrees at all times 03/14/2024 Patient is seen in follow-up today with no acute overnight issues noted. Patient is tolerating oral intake and also continued on TPN. Patient does have a PICC line and will be continuing on 10 days to 2 weeks of Zosyn on discharge per ID recommendations. Case management/social work following working on accepting ECF and currently [facility] is reviewing. Patient is afebrile with no reports of increasing shortness of breath and denies chest pain. 03/15/2024 Patient is seen in follow-up today with no acute overnight issues noted patient per nursing staff did have 1 brief episode of blood in the ostomy that was minute although will order stat CBC patient has had no further episodes. Patient is afebrile with no reports of chest pain or worsening shortness of breath tolerating tracheostomy and is continued on diet along with TPN and will continue. Patient continues on IV Zosyn with infectious disease following and will discuss further with case management/social work regarding discharge planning and currently awaiting an accepting ECF. Multiple other facilities have received the patient thus far. Patient will need continued IV antibiotic therapy on discharge for 10 days to 2 weeks. 03/16/2024 Patient is seen in follow-up today and per nursing staff having some issues with swelling and irritation around the tracheostomy site. General surgery following recommending causing the area and continue monitoring closely. Per nursing staff patient was desatting quickly and is currently maintained on trach collar 8. Patient is afebrile denies chest pain or palpitations. Patient is tolerating diet and also maintained on TPN. Patient will continue on IV antibiotics with infectious disease following and does have a PICC line. Awaiting clearance from consultations to discuss discharge planning to ECF. Case management following working on accepting ECF. Review of systems: Constitutional: No reports of fatigue, fever, or chills Cardiovascular: No reports of chest pain or palpitations Respiratory: No reports of shortness of breath or cough, reporting irritation around the tracheostomy site GI: No reports of nausea, no reports of vomiting, chronic loose stool in the ostomy, tolerating oral intake. : No reports of dysuria or retention Neurovascular: reports of generalized weakness, mostly bedbound All medications have been reviewed PHYSICAL EXAMINATION: GENERAL: The patient is alert and oriented x4, Well developed, well nourished. Appears older than stated age, obese HEENT: Pupils are round and equally reacting to light. EOMI. no scleral icterus. No conjunctival pallor. Normocephalic, atraumatic. No pharyngeal erythema. No thyromegaly. CARDIOVASCULAR: S1 and S2 muffled PULMONARY: diminished breath sounds bilaterally with some coarse scattered rhonchi noted. Upper bronchial congestion noted that patient clears relatively well ABDOMEN: soft. Nontender on exam. obese. non-distended, normoactive bowel sounds. No palpable organomegaly. Large ostomy noted MUSCULOSKELETAL: No joint swelling or deformity. EXTREMITIES: No cyanosis, clubbing, or pedal edema. NEUROLOGICAL: Gross neurological examination did not reveal any focal deficits. Diffuse weakness SKIN: No rashes. Assessment: Pseudomonas pneumonia with sepsis, and acute hypoxic respiratory failure with right lower lobe pneumonia, present on admission, status post mechanical ventilation requiring tracheostomy, culture showing Pseudomonas Status post tracheostomy Recurrent mucous plugging History of DVT and right below the knee amputation History of Crohn's disease with previous bowel perforation and multiple surgeries Profound immunosuppression Severe protein calorie malnutrition maintained on TPN History of previous cardiac arrest in 2021 History of MRSA Obesity with a BMI of 30.2 GI prophylaxis DVT prophylaxis Full code Plan: Recommend to continue with current medications and management with multiple consultations following. Patient has been transitioned out of the ICU on stepdown and doing relatively well Per nursing staff patient did have blood noted in the ostomy with 1 episode and has not occurred again. Stat CBC ordered and hemoglobin is improved above 10. Monitor for any further signs of active bleeding. Patient having some issues around the tracheostomy site and awaiting reevaluation with general surgery. Continued frequent suctioning and wound care at the site Patient to continue current medication regimen including IV Zosyn with infectious disease following. Plan will be for 10 days to 2 weeks on discharge of IV antibiotic therapy Case management/social work following and will be arranging for ECF for continued custodial along with IV antibiotic therapy and significant wounds Recommend aspiration precautions at all times with head of the bed elevated 30 to 45 degrees and assistance with feeds. Patient is chronically also maintained on TPN Await updated PT/OT therapy notes and patient will likely require insurance authorization for ECF, currently no accepting ECF at this time Due to multiple complex medical issues, overall prognosis is guarded Consider discharge planning once cleared by consultations and there is an ECF that is excepting The impression and plan of care has been dictated as a scribe by Alyssa Hernandez, nurse practitioner as directed. Dr. Gerry MD I have performed a history and examination and MDM of this patient, discussed the same with the dictator, and agree with the dictator's assessment and plan as written ,documented as a scribe. Based on total visit time, I have performed more than 50% of the visit. Any additional findings or plans will be noted. Objective - Vital Signs Vital signs: Vital Signs Temp 98.2 F 03/16/24 08:33 Pulse 83 03/16/24 09:15 Resp 20 03/16/24 08:33 BP 126/62 03/16/24 08:33 Pulse Ox 93 L 03/16/24 08:33 FiO2 35 03/16/24 08:51 Intake & Output 03/15/24 03/16/24 03/16/24 18:59 06:59 18:59 Intake Total 1079.5 20 260 Output Total 2550 800 Balance -1470.5 -780 260 Weight 67 kg 67 kg Intake: IV 30 20 20 Invasive Line 5 30 20 20 Intake, IV Titration 1049.5 Amount Mvi, Adult No.4 with Vit 1049.5 K 10 ml Trace (Conc-1Ml/ Dose) 1 ml Sodium Chloride 4Meq/ml Vial 56 meq Potassium Acetate 10 meq Calcium Gluconate 1 gm Magnesium Sulfate gm 1 .25 gm Sodium Phosphate 21 mmol In Amino Acids 5 %/Dextrose 20 % 1,000 ml @ 45 mls/hr IV [id number] Rx#:[id number] Oral 0 240 Output: Urine 400 Stool 2150 800 Other: Voiding Method Indwelling Catheter Indwelling Catheter Indwelling Catheter ABP, PAP, CO, CI - Last Documented Arterial Blood Pressure 91/88 - Labs CBC & Chem 7: 03/15/24 10:03 03/16/24 10:46 Labs: Abnormal Lab Results - Last 24 Hours (Table) 03/15/24 03/15/24 03/16/24 Range/Units 12:09 16:26 00:09 BUN (9-20) mg/dL Creatinine (0.66-1.25) mg/dL Glucose (74-99) mg/dL POC Glucose (mg/dL) 134 H 128 H 118 H (70-110) mg/dL 03/16/24 03/16/24 03/16/24 Range/Units 05:57 10:46 11:29 BUN 22 H (9-20) mg/dL Creatinine 0.46 L (0.66-1.25) mg/dL Glucose 121 H (74-99) mg/dL POC Glucose (mg/dL) 111 H 128 H (70-110) mg/dL
[2024-03-17 00:08] LABS: Glucose,Whole Blood 139 mg/dL (70-110)
[2024-03-17 06:04] LABS: Glucose,Whole Blood 110 mg/dL (70-110)
--- NOTE | 2024-03-17 08:02 | P.PN ---
Progress Note - Text Progress Note Date: 03/17/24 CHIEF COMPLAINT: Respiratory failure HISTORY OF PRESENT ILLNESS: Patient is status post tracheostomy placement. Patient currently on a regular medical floor. No new complaints. Afebrile. PHYSICAL EXAM: VITAL SIGNS: Reviewed. GENERAL: sleeping comfortably HEENT: Tracheostomy site with gauze in place. No drainage noted. ASSESSMENT: 1. Acute hypoxic and hypercapnic respiratory failure. Patient having difficulty weaning from the vent. Status post tracheostomy placement 2. Tracheal stenosis. Prior history of tracheostomy PLAN: -Continue pressure relief at trach site with gauze due to skin irritation at trach site [facility] [phone]
[2024-03-17 09:05] LABS: Basophils % (A) 1 %; Eosinophils # (A) 0.1 k/uL (0-0.7); Eosinophils % (A) 1 %; HCT 38.8 % (39.0-53.0); HGB 11.1 gm/dL (13.0-17.5); Hypochromasia Marked; Lymphocytes # (A) 2.4 k/uL (1.0-4.8); Lymphocytes % (A) 33 %; MCH 25.5 pg (25.0-35.0); MCHC 28.7 g/dL (31.0-37.0); MCV 88.9 fL (80.0-100.0); Mean Platelet Volume 8.5; Monocytes # (A) 0.4 k/uL (0-1.0); Monocytes % (A) 5 %; Neutrophils # (A) 4.1 k/uL (1.3-7.7); Neutrophils % (A) 57 %; Platelet Count 307 k/uL (150-450); RBC 4.37 m/uL (4.30-5.90); WBC 7.2 k/uL (3.8-10.6)
[2024-03-17 09:23] LABS: African American GFR (CKD) >90 (>60 ml/min/1.73 sqM); Anion Gap 9 mmol/L; Blood Urea Nitrogen 21 mg/dL (9-20); Carbon Dioxide 24 mmol/L (22-30); Chloride 103 mmol/L (98-107); Glucose 109 mg/dL (74-99); Non-African American GFR(CKD) >90 (>60 ml/min/1.73 sqM); Phosphorus 3.1 mg/dL (2.5-4.5); Potassium 4.8 mmol/L (3.5-5.1); Sodium 136 mmol/L (137-145)
--- NOTE | 2024-03-17 10:48 | XR ---
EXAMINATION TYPE: XR chest 1V portable DATE OF EXAM: 03/17/2024 10:33 AM COMPARISON: 03/12/2024 CLINICAL INDICATION: Male, 48 years old with history of ronchil, low spo2, TECHNIQUE: XR chest 1V portable view(s) obtained. FINDINGS: The heart size is normal. The pulmonary vasculature is normal. The lungs are clear. There is chronic elevation of the right diaphragm. Catheter is present on the left with the tip in th e superior vena cava region. Tracheostomy tube is in the midline. IMPRESSION: 1. No acute pulmonary process. There appears to be chronic elevation of right diaphragm 2. Lines and catheters are stable from comparison [facility], , 03/17/2024 10:46 AM
[2024-03-17] MEDS: CISATRACURIUM 2 MG/ML 5 ML VIAL IV ONE (10:55)
[2024-03-17] MEDS: LACTATED RINGERS 1,000 ML IV SCH (11:00)
[2024-03-17] MEDS: HYDROmorphone 1 MG/ML 1 ML SYRINGE IVP STA (11:15)
--- NOTE | 2024-03-17 11:47 | P.PN ---
Subjective This is a pleasant 48-year-old male who was recently admitted with hypoxia concerns of pneumonia initially with significant mucous plugging being followed by multiple consultations in the ICU with concerns of sepsis and difficulty weaning requiring tracheostomy. Cultures finalized from the sputum with Pseudomonas and is maintained on antibiotics in the form of Zosyn with infectious disease following. Patient doing well on tracheostomy and planning on ECF possibly in the next few days early next week. Patient is afebrile and will continue antibiotics with the plans for 10 days to 2 weeks on IV antibiotic therapy on discharge. Will discuss further with case management/social work regarding discharge planning. Patient has been moved out of the ICU and remained stable at this time. Recommend aspiration precautions and sitting with the head of the bed elevated 30 to 45 degrees at all times 03/14/2024 Patient is seen in follow-up today with no acute overnight issues noted. Patient is tolerating oral intake and also continued on TPN. Patient does have a PICC line and will be continuing on 10 days to 2 weeks of Zosyn on discharge per ID recommendations. Case management/social work following working on accepting ECF and currently [facility] is reviewing. Patient is afebrile with no reports of increasing shortness of breath and denies chest pain. 03/15/2024 Patient is seen in follow-up today with no acute overnight issues noted patient per nursing staff did have 1 brief episode of blood in the ostomy that was minute although will order stat CBC patient has had no further episodes. Patient is afebrile with no reports of chest pain or worsening shortness of breath tolerating tracheostomy and is continued on diet along with TPN and will continue. Patient continues on IV Zosyn with infectious disease following and will discuss further with case management/social work regarding discharge planning and currently awaiting an accepting ECF. Multiple other facilities have received the patient thus far. Patient will need continued IV antibiotic therapy on discharge for 10 days to 2 weeks. 03/16/2024 Patient is seen in follow-up today and per nursing staff having some issues with swelling and irritation around the tracheostomy site. General surgery following recommending causing the area and continue monitoring closely. Per nursing staff patient was desatting quickly and is currently maintained on trach collar 8. Patient is afebrile denies chest pain or palpitations. Patient is tolerating diet and also maintained on TPN. Patient will continue on IV antibiotics with infectious disease following and does have a PICC line. Awaiting clearance from consultations to discuss discharge planning to ECF. Ca se management following working on accepting ECF. 03/17 Patient today was becoming more hypoxic and oxygen dropped to mid 80s on high 70s while he is on FiO2 of 100%. Getting it through trach collar in place. He was awake alert complaining from breathing difficulty mildly tachypneic while at rest. Complaining from some pain in his right chest. Abdomen is soft and there is big wound in the middle of the abdomen with fecal management system in place. Connected to his abdominal wound Medina catheter in place A team was called. Patient was transferred to the ICU for further management. Labs from today showing WBC 7.2, hemoglobin 11.1. Creatinine within the reference range at 0.45. Glucose controlled. Chest x-ray: Showing no acute pulmonary process. Looks like there is chronic elevation of the right diaphragm. 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 Active Medications Generic Name Dose Route Start Last Admin Trade Name Freq PRN Reason Stop Dose Admin Albuterol/Ipratropium 3 ml 03/11/24 08:00 03/17/24 07:34 Ipratropium-Albuterol 3 Ml Neb INHALATION 3 ml RT-QID ANNIE Administration Albuterol/Ipratropium 3 ml 03/10/24 20:30 Ipratropium-Albuterol 3 Ml Neb INHALATION RT-Q2H PRN Shortness Of Breath Or Wheezing Budesonide 1 mg 03/12/24 12:45 03/17/24 07:34 Budesonide 1 Mg/2 Ml Nebu INHALATION 1 mg RT-BID ANNIE Administration Chlorhexidine Gluconate 15 ml 03/17/24 21:00 Chlorhexidine Gluconate 15 Ml Cup MUCOUS MEM BID ANNIE Dextrose/Water 25 ml 02/26/24 08:17 Dextrose 50% Syringe 50 Ml IVP PER PROTOCOL PRN Hypoglycemia Protocol Dextrose/Water 50 ml 02/26/24 08:17 Dextrose 50% Syringe 50 Ml IVP PER PROTOCOL PRN Hypoglycemia Protocol Enoxaparin Sodium 80 mg 02/26/24 21:00 03/17/24 07:48 Enoxaparin 80 Mg/0.8 Ml Syringe SQ 80 mg BID@0900,2100 ANNIE Administration Folic Acid 1 mg 03/12/24 12:00 03/16/24 13:21 Folic Acid 1 Mg Tab PO 1 mg DAILY@1200 ANNIE Administration Hydrocortisone Sodium Succinate 50 mg 03/10/24 15:00 03/17/24 07:48 Hydrocortisone Succinate 100 Mg/2 Ml Vial IV 50 mg Q8HR ANNIE Administration Hydromorphone HCl 1 mg 03/14/24 22:58 03/17/24 07:34 Hydromorphone 1 Mg/Ml 1 Ml Syringe IVP 1 mg Q4HR PRN Administration Analgesia Sodium Chloride 1,000 mls @ 20 mls/hr 02/25/24 17:30 03/16/24 15:46 Saline 0.9% IV Not Given .Q24H ANNIE Fat Emulsion Intravenous 250 250 mls @ 21 mls/hr 03/09/24 12:00 03/15/24 12:30 ml/ IV Solution IV 21 mls/hr Q72H ANNIE Administration Parenteral Vitamin Supplement 1,049.5 mls @ 45 mls/hr 03/13/24 13:00 03/16/24 13:21 10 ml/ Zinc/Copper/Manganese/ IV 45 mls/hr Selenium 1 ml/ Sodium Chloride .[id number] ANNIE Administration 56 meq/ Potassium Acetate 10 meq/ Calcium Gluconate 1 gm/ Magnesium Sulfate 1.25 gm/ Sodium Phosphate 21 mmol/ Amino Acids/Dextrose Piperacillin Sod/Tazobactam 100 mls @ 25 mls/hr 03/15/24 16:40 03/17/24 07:48 Sod 3.375 gm/ Sodium Chloride IVPB 25 mls/hr Q8HR ANNIE Administration Protocol Propofol 1,000 mg/ IV Solution 100 mls @ 8.235 mls/hr 03/17/24 11:15 03/17/24 11:10 IV 60 mcg/kg/min .Q12H9M ANNIE 32.94 mls/hr Administration Protocol 15 MCG/KG/MIN Clevidipine 25 mg/ IV Solution 50 mls @ 2 mls/hr 03/17/24 11:15 IV .Q24H ANNIE Protocol 1 MG/HR Insulin Aspart 0 unit 02/26/24 12:00 03/17/24 06:07 Insulin Aspart (Novolog) 100 Unit/Ml Vial SQ Not Given Q6H [facility] Protocol Miscellaneous Information 1 each 02/27/24 12:26 Phosphorus Replacement Protoco 1 Each Misc MISCELLANE DAILY PRN Per Protocol Protocol Miscellaneous Information 1 each 02/27/24 12:28 Potassium Replacement Protocol 1 Each [facility] [place] PRN Per Protocol Protocol Miscellaneous Information 1 each 03/10/24 06:32 Magnesium Replacement Protocol 1 Each [facility] [place] PRN Per Protocol Protocol Multivitamins 1 each 03/12/24 12:00 03/16/24 13:20 Multivitamins, Thera 1 Each Tab PO 1 each DAILY@1200 ANNIE Administration Naloxone HCl 0.2 mg 02/25/24 17:20 02/26/24 02:02 Naloxone 0.4 Mg/Ml 1 Ml Vial IV 0.2 mg Q2M PRN Administration Opioid Reversal Pantoprazole Sodium 40 mg 02/26/24 09:00 03/17/24 07:48 Pantoprazole 40 Mg/10 Ml Vial IVP 40 mg DAILY ANNIE Administration Thiamine HCl 100 mg 03/11/24 17:30 03/17/24 07:41 Thiamine 100 Mg Tab PO Not Given BID-W/MEALS [facility] Objective - Vital Signs Vital signs: Vital Signs Temp 98 F 03/17/24 08:00 Pulse 89 03/17/24 08:00 Resp 22 03/17/24 09:53 BP 141/78 03/17/24 08:00 Pulse Ox 84 L 03/17/24 09:53 FiO2 100 03/17/24 11:05 Intake & Output 03/16/24 03/17/24 03/17/24 18:59 06:59 18:59 Intake Total 1559.5 220 120 Output Total 2550 3000 1400 Balance -990.5 -2780 -1280 Weight 67 kg 91.5 kg Intake: IV 30 20 Invasive Line 5 30 20 Intake, IV Titration 1049.5 Amount Mvi, Adult No.4 with Vit 1049.5 K 10 ml Trace (Conc-1Ml/ Dose) 1 ml Sodium Chloride 4Meq/ml Vial 56 meq Potassium Acetate 10 meq Calcium Gluconate 1 gm Magnesium Sulfate gm 1 .25 gm Sodium Phosphate 21 mmol In Amino Acids 5 %/Dextrose 20 % 1,000 ml @ 45 mls/hr IV .[id number] [facility] Rx#:[id number] Oral 480 200 120 Output: Urine 500 500 Stool 2050 3000 900 Other: Voiding Method Indwelling Catheter Indwelling Catheter Indwelling Catheter ABP, PAP, CO, CI - Last Documented Arterial Blood Pressure 91/88 - Exam -GENERAL: The patient is alert and oriented x2-3, not in any acute distress. Well developed, well nourished. Looks tired HEENT: Pupils are round and equally reacting to light. EOMI. No scleral icterus. No conjunctival pallor. Normocephalic, atraumatic. No pharyngeal erythema. No thyromegaly. CARDIOVASCULAR: S1 and S2 present. No murmurs, rubs, or gallops. -PULMONARY: Chest is clear to auscultation, no wheezing , no crackles. Decreased breath sounds on both sides ABDOMEN: Soft, nontender, nondistended, normoactive bowel sounds. No palpable organomegaly. Central abdominal wound with similar to colostomy bag in place connected to fecal management system MUSCULOSKELETAL: No joint swelling or deformity. EXTREMITIES: No cyanosis, clubbing, or pedal edema. NEUROLOGICAL: Gross neurological examination did not reveal any focal deficits. SKIN: No rashes. no petechiae. - Labs CBC & Chem 7: 03/17/24 08:50 03/17/24 08:50 Labs: Abnormal Lab Results - Last 24 Hours (Table) 03/16/24 03/16/24 03/17/24 Range/Units 16:56 19:58 00:04 Hgb (13.0-17.5) gm/dL Hct (39.0-53.0) % MCHC (31.0-37.0) g/dL RDW (11.5-15.5) % Sodium (137-145) mmol/L BUN (9-20) mg/dL Creatinine (0.66-1.25) mg/dL Glucose (74-99) mg/dL POC Glucose (mg/dL) 126 H 138 H 139 H (70-110) mg/dL 03/17/24 03/17/24 Range/Units 08:50 08:50 Hgb 11.1 L (13.0-17.5) gm/dL Hct 38.8 L (39.0-53.0) % MCHC 28.7 L (31.0-37.0) g/dL RDW 16.0 H (11.5-15.5) % Sodium 136 L (137-145) mmol/L BUN 21 H (9-20) mg/dL Creatinine 0.45 L (0.66-1.25) mg/dL Glucose 109 H (74-99) mg/dL POC Glucose (mg/dL) (70-110) mg/dL Assessment and Plan Assessment: Pseudomonas pneumonia with sepsis, and acute hypoxic respiratory failure with right lower lobe pneumonia, present on admission, status post mechanical ventilation requiring tracheostomy, culture showing Pseudomonas Status post tracheostomy Recurrent mucous plugging 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 Pulmonary team consulted on the case Infectious disease and general surgery team consult Labs and medication were reviewed.. Continue same treatment. Continue with symptomatic treatment. Resume home medication. Monitor labs and vitals. DVT and GI prophylaxis. Further recommendations as per clinical course of the sia ent DVT prophylaxis: Subcutaneous heparin GI Prophylaxis: Protonix PT/OT: Pending Prognosis is guarded Lovenox
[2024-03-17 11:54] LABS: Glucose,Whole Blood 134 mg/dL (70-110)
[2024-03-17 12:00] LABS: ABG Base Excess -0.5 mmol/L; ABG HCO3 27 mmol/L (21-25); ABG Oxygen Saturation 98.5 % (94-97); ABG PCO2 54 mmHg (35-45); ABG PO2 108 mmHg (83-108); ABG TCO2 28 mmol/L (19-24)
--- NOTE | 2024-03-17 12:08 | XR ---
EXAMINATION TYPE: XR chest 1V portable DATE OF EXAM: 03/17/2024 11:36 AM COMPARISON: 03/17/2024 earlier exam CLINICAL INDICATION: Male, 48 years old with history of Tube placement, TECHNIQUE: XR chest 1V portable view(s) obtained. FINDINGS: The heart size is normal. The pulmonary vasculature is normal. Air bronchograms and a retrocardiac infiltrate are present. Correlate for pneumonia. Left-sided sonny ter present with tip in the superior vena cava region. An endotracheal tuber has been placed with tip 5.5 cm above the avery. Nasogastric tube is present with tip in left upper quadrant of the abdomen. Chronic elevation of the right diaphragm is present. IMPRESSION: 1. Left lower lobe infiltrate. Correlate for pneumonia. 2. Endotracheal tube tip 5.5 cm above the avery. 3. Additional lines and catheters discussed above. [facility], , 03/17/2024 12:06 PM
[2024-03-17] MEDS: CLEVIDIPINE BUTYRATE 25 MG in EMPTY BAG 1 BAG IV SCH (12:19)
[2024-03-17] MEDS: NOREPINEPHRINE 8 MG in SODIUM CHLORIDE 0.9% 250 ML IV SCH (12:34)
--- NOTE | 2024-03-17 13:37 | P.PN ---
Subjective Progress Note Date: 03/17/24 Principal diagnosis: Hypoxia. Patient is a 48-year-old male with complex past medical history including CVA, previous DVTs, right BKA, cardiac arrest in 2021, Crohn's disease, ent erocutaneous fistulas, previous bowel resection, ventilator dependent respiratory failure, previous tracheostomy and reversal. Recently was admitted 12/13/2023 through 12/25/2023 for pneumonia and respiratory failure due to mucous plugging. He was intubated and placed on mechanical ventilator for a pproximately 6 days. He did have a bronchoscopy with BAL, microbiology positive for haemophilus influenza. Eventually, discharged home, and returned 01/02/24 for GIB from his ostomy. Was reintubated and did spend some time on the ventilator for reccurent pneumonia and mucous plugging. During this time, had multiple bronchoscopies with BAL, once on 12/31/2023 and again on 01/03/2024, isolated organisms including MRSA and Pseudomonas. Patient was eventually discharged back home on 01/16/2024. More recently, patient had an ER visit for increased work of breathing on February 22, and the patient was sent home. Returned for similar symptoms yesterday afternoon. Chest x-ray done on admission showing cardiomegaly with pulmonary vascular congestion and questionable right lower lobe infiltrate or effusion. CBC: WBC count 11.2, hemoglobin 10.5, hematocrit 37.3, platelets 315. CMP: Sodium 138, potassium 4.8, chloride 97, serum bicarb 39, BUN 23, creatinine 0.45, glucose 103. Lactic 1. LFTs unremarkable. Troponin less than 0.012. I am evaluating this patient emergency department, he is currently unresponsive, to even painful stimuli. He is on a 15 L nonrebreather. SpO2 88%. Diminished breath sounds on the right Will place this patient on BiPAP with initial settings 16/5 FiO2 to be titrated accordingly. Will get a stat ABG. We will repeat chest x-ray. I did talk to the patient's son, Alan, he is adamant that the patient remain a full code, would want the patient intubated if necessary. On reassessment in the emergency department, patient remained on BiPAP with settings 16/5 100%. He remains unresponsive to painful stimuli. Now only achieving tidal volumes ranging from 100 to 200 cc. Unfortunately, we were not able to to get an initial blood gas. I recommended that the patient be moved to the trauma bay and intubated by the SLEEP LAB TECHNICIAN. Follow-up chest x-ray showing the endotracheal tube in appropriate position above the avery. Orogastric tube coursing below the diaphragm. Initial ventilator settings include assist- control, respiratory rate 20, tidal volume 500, FiO2 100%, PEEP of 5. Currently, patient is fairly asynchronous with the ventilator and he is biting the tube. There are copious amounts of blood-tinged sputum in the ET tube. Elevated peak airway pressures of 45. Static pressure 32. The nurses are working on appropriately sedating the patient with propofol. Postintubation, the patient did become hypotensive, currently receiving his second liter of normal saline. Will also start the patient on norepinephrine to maintain a MAP of greater than 65 mmHg. I did insert a left femoral arterial line. Following this, we did obtain an ABG showing profound hypercapnic and hypoxic respiratory failure. PaO2 of 89, pCO2 98, pH of 7.11. Appropriate ventilator adjustments were made including increasing the rate to 26 and PEEP can be increased to 8. Patient may eventually need repeat bronchoscopy with BAL. Case will be discussed with Dr. Munoz. Patient is still waiting for a bed in the intensive care unit. I did call and update patient's son Alan about his change in clinical condition. On 03/07/2024, the patient is awake and alert and the patient is currently off propofol. The patient is still on the mechanical ventilator assist-control mode rate of 16, tidal volume of 500, FiO2 50% with a PEEP of 6. Calm and comfortable and breathing comfortable. No significant secretions through the tracheostomy tube. Remains on IV Zosyn. He does have pseudomonal pneumonia for which she is on IV Zosyn based on antibiotic sensitivities. Remains on TPN and this was increased up to 60 cc an hour. Remains on anticoagulation with Lovenox 80 mg subcu every 12 hours. Ileostomy is still active and the patient is producing approximately 1000 cc of gastric output over the past 8 hours. Fluid balance -600 cc over the past 24 hours. White cell count is at 4.9 with a hemoglobin 8.8 and a platelet count of 255. BUN is 10 with a creatinine of 0.4 and the sodium is at 137 and a potassium level is at 4.1. Awake and alert and communicating. Profound weakness of lower extremities along with significant muscle atrophy. On 03/08/2024, the patient is on a T-piece at 40% FiO2. No significant respiratory secretions., Comfortable and awake and communicating. He is asking for some oral intake of food. No respiratory difficulties. Remains on TPN at rate of 60 cc an hour. Ileostomy output has been 1500 over the past 8 hours. Fluid balance is 0. Remains on low-dose norepinephrine 0.04 mcg/kg/min. The white cell count of 5 with a hemoglobin 8.3 and a platelet count of 236. BUN is 8 with a creatinine of 0.37 and sodium levels at 137. He remains on IV Zosyn regarding his pseudomonal pneumonia. Chest x-ray findings are also stable. Patient was evaluated today on 03/09/2024, patient remains on T-piece, at 35% FiO2, seems to be fairly comfortable, does not seem to be in any distress, he is awake, communicating, does not seem to be in distress, still on TPN, 60 mL/h, patient is receiving treatment for pseudomonal infection/pneumonia and he is on Zosyn. Patient is to have a swallow evaluation today and possibly allow oral feeding. His tracheostomy was placed on 03/05, patient is still requiring low- dose norepinephrine at 0.01 mcg/kg/min. Basic metabolic profile is normal, bicarb is 37 BUN is 9 creatinine 0.41 chest x-ray continues show interstitial opacities with slight improvement specially in the right and left basilar areas Patient was evaluated today on 03/10/2024 remains in the ICU remains on T-piece at 28% FiO2 patient passed his swallow evaluation yesterday and now he is allowed to have oral feedings, in the meantime he is on TPN at 85 cc/h he is off norepinephrine since 5 AM this morning. Remains on Zosyn for his pseudomonal infection cough seems to be deflated for him to swallow and tolerate oral diet. Not much has happened in the last 24 hours otherwise. Labs were reviewed WBC count is 4.3 hemoglobin 9.3 basic metabolic profile is normal renal profile is normal Seen today on 03/12/2024, patient is doing well, he is on the medical floor, not in any distress, on 28% trach collar, remains on antibiotics, he is not requiring any pressors, hemodynamically stable, patient has a speaking valve and able to communicate. Denies any specific symptoms.WBC count is 6.2 hemoglobin is 10.1 electrolytes are normal renal profile is normal Patient was evaluated today on 03/13/2024, remains on trach collar, does not seem to be in any distress, WBC count 7.3 hemoglobin 9.3 electrolytes are normal potassium is a bit high at 5.3 renal profile is normal, overall the patient is doing great. Seen today on 03/14/2024, patient is doing well, being fed by his mother at bedside, patient is asymptomatic otherwise. Trach collar remains in place, patient is tolerating trach collar well, hardly any cough no wheezing no shortness of breath no chest pain no fever no chills no hemoptysis.Labs from [facility] including basic metabolic profile noted and basically unremarkable on 03/15/2024, patient is basically about the same. Patient is laying in bed, being fed by his mother, tolerating feeding quite well, does not seem to be in any distress, continues to have trach collar in place, overall the patient is doing great, and eventually needs to be discharged home.WBC count 6.5 hemoglobin 10.2 basic metabolic profile is normal and renal profile is normal Progress note dated March 16, 2024. 48-year-old male who is now been here in the hospital for 20 days. The patient is seen today in room 367. The patient is on 35% trach collar. The patient is receiving IV Zosyn, and TPN at 45 cc an hour. The patient is laying nearly flat in bed. In no distress whatsoever. Current laboratory data includes a sodium 137, potassium 4.4, chlorides 103, CO2 23, BUN 22, creatinine 0.46. Glucose is 128. Calcium 10.1, phosphorus 3.0, magnesium 1.9. Bronchoscopy, with BAL, on March 02, revealed evidence of Pseudomonas aeruginosa, which was also discovered in his sputum, on February 25. Progress note dated March 17, 2024. 48-year-old male who was seen today in room 256. The patient was on the medical floor, and a rapid response was called on this patient, for respiratory distress. The respiratory therapist on the floor, could not ventilate the patient, despite using a [id number] device, and his saturations were in the 80s, so the patient was moved to the intensive care unit, for further monitoring and management. There, with the aid of the glide scope, the patient was orally intubated, as a tracheostomy tube, was removed. The patient was connected to the ventilator. He was sedated with propofol, and received some Nimbex for paralysis. Next, the patient underwent bronchoscopy, to evaluate the respiratory tract. There were thick secretions noted throughout, we did a BAL, of the right lung. 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 In addition to intubation, and bronchoscopy, the patient had a central line placed and a arterial line placed. Current labs include a white count 7.2, hemoglobin 9.1, hematocrit 38.8, platelet count 3 years 70,000. Blood gases show pO2 108, pCO2 of 54, pH is 7.30. The rate on the ventilator was increased to 28, and the PEEP was increased to 8, with orders to titrate the FiO2 down. Sodium 136, potassium 4.8, chlorides 103, CO2 24, BUN 21, creatinine 0.45. Chest x-ray shows endotracheal tube to be about 5 cm above the tracheal avery. There is a left lower lobe infiltrate. Objective - Vital Signs Vital signs: Vital Signs Temp 98 F 03/17/24 08:00 Pulse 89 03/17/24 08:00 Resp 22 03/17/24 09:53 BP 141/78 03/17/24 08:00 Pulse Ox 84 L 03/17/24 09:53 FiO2 90 03/17/24 12:06 Intake & Output 03/16/24 03/17/24 03/17/24 18:59 06:59 18:59 Intake Total 1559.5 220 120 Output Total 2550 3000 1400 Balance -990.5 -2780 -1280 Weight 67 kg 91.5 kg Intake: IV 30 20 Invasive Line 5 30 20 Intake, IV Titration 1049.5 Amount Mvi, Adult No.4 with Vit 1049.5 K 10 ml Trace (Conc-1Ml/ Dose) 1 ml Sodium Chloride 4Meq/ml Vial 56 meq Potassium Acetate 10 meq Calcium Gluconate 1 gm Magnesium Sulfate gm 1 .25 gm Sodium Phosphate 21 mmol In Amino Acids 5 %/Dextrose 20 % 1,000 ml @ 45 mls/hr IV .[id number] [facility] Rx#:[id number] Oral 480 200 120 Output: Urine 500 500 Stool 2050 3000 900 Other: Voiding Method Indwelling Catheter Indwelling Catheter Indwelling Catheter ABP, PAP, CO, CI - Last Documented Arterial Blood Pressure 91/88 - Exam Sedated, currently paralyzed, with an orally placed endotracheal tube. Tracheostomy tube has been removed. HEENT examination is grossly unremarkable. Mucous membranes are moist. No oral lesions. Neck supple. Full range of motion. No adenopathy thyromegaly or neck vein distention. Cardiovascular examination reveals regular rhythm rate. S1-S2 normal. No S3 or S4. No discernible murmur noted. Lungs reveal coarse bilateral rhonchi. Breath sounds are equal. No wheezes or crackles. Abdomen soft, nontender, with functioning ileostomy. The patient also has an enterocutaneous fistula over the anterior abdominal wall. Extremities are intact. No cyanosis clubbing or edema. Right BKA. Skin is without rash or lesion. Neurologic examination is unable to be evaluated at this time. - Labs CBC & Chem 7: 03/17/24 08:50 03/17/24 08:50 Labs: Abnormal Lab Results - Last 24 Hours (Table) 03/16/24 03/16/24 03/17/24 Range/Units 16:56 19:58 00:04 Hgb (13.0-17.5) gm/dL Hct (39.0-53.0) % MCHC (31.0-37.0) g/dL RDW (11.5-15.5) % ABG pH (7.35-7.45) ABG pCO2 (35-45) mmHg ABG HCO3 (21-25) mmol/L ABG Total CO2 (19-24) mmol/L ABG O2 Saturation (94-97) % Hemoglobin (13.0-17.5) gm/dL Sodium (137-145) mmol/L BUN (9-20) mg/dL Creatinine (0.66-1.25) mg/dL Glucose (74-99) mg/dL POC Glucose (mg/dL) 126 H 138 H 139 H (70-110) mg/dL 03/17/24 03/17/24 03/17/24 Range/Units 08:50 08:50 11:52 Hgb 11.1 L (13.0-17.5) gm/dL Hct 38.8 L (39.0-53.0) % MCHC 28.7 L (31.0-37.0) g/dL RDW 16.0 H (11.5-15.5) % ABG pH (7.35-7.45) ABG pCO2 (35-45) mmHg ABG HCO3 (21-25) mmol/L ABG Total CO2 (19-24) mmol/L ABG O2 Saturation (94-97) % Hemoglobin (13.0-17.5) gm/dL Sodium 136 L (137-145) mmol/L BUN 21 H (9-20) mg/dL Creatinine 0.45 L (0.66-1.25) mg/dL Glucose 109 H (74-99) mg/dL POC Glucose (mg/dL) 134 H (70-110) mg/dL 03/17/24 Range/Units 11:58 Hgb (13.0-17.5) gm/dL Hct (39.0-53.0) % MCHC (31.0-37.0) g/dL RDW (11.5-15.5) % ABG pH 7.30 L (7.35-7.45) ABG pCO2 54 H (35-45) mmHg ABG HCO3 27 H (21-25) mmol/L ABG Total CO2 28 H (19-24) mmol/L ABG O2 Saturation 98.5 H (94-97) % Hemoglobin 10.7 L (13.0-17.5) gm/dL Sodium (137-145) mmol/L BUN (9-20) mg/dL Creatinine (0.66-1.25) mg/dL Glucose (74-99) mg/dL POC Glucose (mg/dL) (70-110) mg/dL Assessment and Plan Assessment: Acute respiratory failure, with inability to oxygenate or ventilate this patient, status post oral placement of an endotracheal tube, with removal of the tracheostomy tube, March 17, 2024. Acute hypoxemic and hypercapnic respiratory failure, requiring intubation and mechanical ventilation on February 26, 2024. S/P tracheostomy on March 05, 2024. Pseudomonas aeruginosa pneumonia. 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 Sepsis/septic shock, secondary to Pseudomonas pneumonia. Crohn's disease, status post bowel perforation, colectomy, and diverting ileostomy. TPN for nutritional support. Profound electrolyte imbalance. Tracheobronchomalacia. History of DVT. History of CVA/TIA, with residual left-sided weakness. Right BKA. History of asystole, 2021. Plan: Plan dated March 16, 2024. The patient was seen today in room 367. He is currently on 35% trach collar. He is getting TPN at 45 cc an hour. For his Pseudomonas infection, he continues on Zosyn. Labs, x-rays, and all medications are reviewed. The patient had a repeat tracheostomy performed on this admission. Apparently he had developed some tracheal stenosis from his previous tracheostomy. We are looking back to see whether or not we can identify whether or not there was some sort of defect or abnormality or tracheal flap noted on previous bronchoscopy. Prognosis is guarded. Plan dated March 17, 2024. The patient was transferred to the intensive care unit. There, we could not ventilate or oxygenate the patient, it was very difficult to bag the patient. Hence, the patient was orally intubated, using the glide scope. #8 endotracheal tube was placed. In addition, the tracheostomy tube was removed. Central line and arterial line were placed. The patient was sedated with propofol and paraly zed with Nimbex. Labs, x-rays, medications are reviewed. Because of the patient's tracheal stenosis, I believe the patient would best served to be transferred to [facility], or a similar institution. Additional recommendations and suggestions are forthcoming. Labs, x-rays, and medications are reviewed. We did notify the primary service of our desire to transfer this patient. Time with Patient: Greater than 30
[2024-03-17 17:06] LABS: Glucose,Whole Blood 130 mg/dL (70-110)
--- NOTE | 2024-03-17 19:21 | OP ---
OPERATIVE REPORT DATE OF SERVICE : PROCEDURE: A right femoral art line. PREOPERATIVE DIAGNOSIS: Frequent blood draws and blood gas monitoring. POSTOPERATIVE DIAGNOSIS: Frequent blood draws and blood gas monitoring. ARTERIAL LINE PLACEMENT: Indications: Hemodynamic monitoring. A time-out was completed verifying correct patient, procedure, site, positioning, and implant(s) or special equipment if applicable. Issa's test was performed to ensure adequate perfusion. The patient's right groin was prepped and draped in sterile fashion. 1% Lidocaine was used to anesthetize the area. An 18G Arrow arterial line was introduced into the femoral artery. The catheter was threaded over the guide wire and the needle was removed with appropriate pulsatile blood return. Blood loss was minimal. The catheter was then sutured in place to the skin and a sterile dressing applied. Perfusion to the extremity distal to the point of catheter insertion was checked and found to be adequate. There was good blood return and waveform. The patient tolerated the procedure well. There was no immediate complication. There was informed consent and universal timeout. The patient's procedure took place in room 256. BULK GAS SPECIALIST: Dr. Danika Arenas. PROCEDURE: Right femoral vein triple-lumen catheter. PREOPERATIVE DIAGNOSIS: Administration of fluids and pressors. POSTOPERATIVE DIAGNOSIS: Administration of fluids and pressors. BULK GAS SPECIALIST: Dr. Arenas. TRIPLE LUMEN CATHETER PLACEMENT: Indication: Hemodynamic monitoring/Intravenous access. A time-out was completed verifying correct patient, procedure, site, positioning, and implant(s) or special equipment if applicable. The patient was placed in a dependent position appropriate for triple lumen catheter placement based on the vein to be cannulated. The patient's right groin was prepped and draped in sterile fashion. 1% Lidocaine was used to anesthetize the surrounding skin area. A triple lumen 9F Cordis catheter was introduced into the right common femoral vein using Seldinger technique. The catheter was threaded smoothly over the guide wire and appropriate blood return was obtained. Each lumen of the catheter was evacuated of air and flushed with sterile saline. The catheter was then sutured in place to the skin and a sterile dressing applied. Perfusion to the extremity distal to the point of catheter insertion was checked and found to be adequate. There was informed consent and universal timeout. The patient's procedure took place in room 256. There was good blood return from all 3 ports. The patient tolerated the procedure well. The catheter was sutured in place. A sterile dressing was applied by the nurse. There was no immediate complication. MMODL / IJN: [id number] /
--- NOTE | 2024-03-17 19:32 | PCN ---
PROCEDURE NOTE PROCEDURE: Bronchoscopy, airway examination, therapeutic lavage, BAL, right lung. PREOPERATIVE DIAGNOSES: Pneumonia, mucus secretions, mucus plugging, respiratory failure. POSTOPERATIVE DIAGNOSES: Pneumonia, mucus secretions, mucus plugging, respiratory failure. OPERATORS: Dr. Munoz, Dr. Arenas, and Dr. Zepeda. There was informed consent and universal timeout. The bronchoscope adapter connected to the endotracheal tube. The bronchoscope was pushed through the bronchoscope adapter into the endotracheal tube and out the endotracheal tube. The endotracheal tube was positioned properly in the mid to distal trachea. Next, the bronchoscope was used to suction significant secretions from both lungs. The right upper lobe, right middle lobe, right lower lobe, left upper lobe proper, lingula, and left lower lobe, but similar findings of diffuse airway erythema and hyperemia. There was mucosal friability. There were thick purulent secretions noted throughout. They were suctioned with some difficulty with aid of lavage. There was no dominant mass or tumor. Next, the bronchoscope was used to lavage the right lung. We did pull washings from the right lung. The patient tolerated the procedure well. We made sure that the endotracheal tube was properly placed and it was. The bronchoscope was withdrawn. There were no immediate complications. 25 to 30 mL of blood-tinged fluid was removed from the right lung. We sent it to laboratory for analysis. SECOND PROCEDURE: PROCEDURE: Emergent intubation. PREOPERATIVE DIAGNOSIS: Respiratory failure, inability to ventilate. POSTOPERATIVE DIAGNOSES: Respiratory failure, inability to ventilate. JOB SETTER HONING: Dr. Munoz, Dr. Arenas, and Dr. Zepeda. The patient's procedure took place in room 256. We used a #8 endotracheal tube and a GlideScope. Under direct visualization using the GlideScope, the endotracheal tube was seen to pass through the glottic opening into the trachea. The balloon on the endotracheal tube was inflated. The endotracheal tube was secured. The patient was connected to the ventilator. The patient was sedated with propofol and paralyzed with Nimbex prior to the procedure. The patient tolerated the procedure well without difficulty. There was good color change on the qualitative capnography device. The patient was connected to the ventilator and was ventilated properly. There was no immediate complication. A chest x-ray will be ordered. MMODL / IJN: [id number] /
[2024-03-17] MEDS: CHLORHEXIDINE GLUCONATE 15 ML CUP MUCOUS MEM SCH (21:35)
[2024-03-18 00:44] LABS: Appearance,BF Blood Tinged (Clear); RBC, Body Fluid 14150 /UL (0-2000)
[2024-03-18 04:32] LABS: Glucose,Whole Blood 151 mg/dL (70-110)
[2024-03-18 05:03] LABS: Anisocytosis Slight; Basophils % (A) 0 %; Eosinophils # (A) 0.1 k/uL (0-0.7); Eosinophils % (A) 1 %; HCT 34.7 % (39.0-53.0); HGB 10.4 gm/dL (13.0-17.5); Hypochromasia Marked; Lymphocytes # (A) 1.7 k/uL (1.0-4.8); Lymphocytes % (A) 19 %; MCH 25.4 pg (25.0-35.0); MCHC 30.1 g/dL (31.0-37.0); MCV 84.4 fL (80.0-100.0); Mean Platelet Volume 9.1; Monocytes # (A) 0.5 k/uL (0-1.0); Monocytes % (A) 5 %; Neutrophils # (A) 6.5 k/uL (1.3-7.7); Neutrophils % (A) 73 %; Platelet Count 367 k/uL (150-450); Poikilocytosis Slight; RBC 4.11 m/uL (4.30-5.90); RDW 16.1 % (11.5-15.5); WBC 8.9 k/uL (3.8-10.6)
[2024-03-18 05:09] LABS: ALT 77 U/L (4-49); AST 38 U/L (17-59); African American GFR (CKD) >90 (>60 ml/min/1.73 sqM); Albumin 3.5 g/dL (3.5-5.0); Alkaline Phosphatase 116 U/L (38-126); Anion Gap 12 mmol/L; Blood Urea Nitrogen 20 mg/dL (9-20); Calcium 9.7 mg/dL (8.4-10.2); Carbon Dioxide 21 mmol/L (22-30); Chloride 103 mmol/L (98-107); Glucose 156 mg/dL (74-99); Magnesium 1.9 mg/dL (1.6-2.3); Non-African American GFR(CKD) >90 (>60 ml/min/1.73 sqM); Phosphorus 3.3 mg/dL (2.5-4.5); Sodium 136 mmol/L (137-145); Total Bilirubin 0.5 mg/dL (0.2-1.3)
[2024-03-18 05:14] LABS: ABG HCO3 25 mmol/L (21-25); ABG Oxygen Saturation >100.0 % (94-97); ABG PCO2 43 mmHg (35-45); ABG PH 7.38 (7.35-7.45); ABG PO2 166 mmHg (83-108); ABG TCO2 27 mmol/L (19-24)
[2024-03-18 05:29] LABS: Glucose,Whole Blood 143 mg/dL (70-110)
[2024-03-18] MEDS: MAGNESIUM SULFATE-D5W PMX 1 GM in DEXTROSE/WATER 1 100ML.BAG IVPB ONE (06:38)
--- NOTE | 2024-03-18 08:55 | XR ---
EXAMINATION TYPE: XR chest 1V portable DATE OF EXAM: 03/18/2024 5:41 AM COMPARISON: 03/17/2024 CLINICAL INDICATION: Male, 48 years old with history of Tube placement, TECHNIQUE: XR chest 1V portable view(s) obtained. FINDINGS: The heart size is normal. The pulmonary vasculature is normal. There may be some mild atelectasis at the right diaphragm, an interval change Endotracheal tube tip is 6.4 cm above the avery. Left central venous catheter tip is in the distal s uperior vena cava proximal right atrium. Nasogastric tube transverses the thorax. IMPRESSION: 1. Mild atelectasis developing at the right diaphragm. 2. Lines and catheters discussed above [facility], Workstation: [facility], 03/18/2024 8:53 AM
--- NOTE | 2024-03-18 09:23 | P.PN ---
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 On today's evaluation that is 03/16/2024, patient has been afebrile, patient is complaining of more shortness of breath today he is concerned about possible blockage of his tracheostomy denies having any chest pain or worsening cough no vomiting or diarrhea has been reported. Patient did have a creatinine 0.46 no CBC was done today Objective - Vital Signs Vital signs: Vital Signs Temp 98.2 F 03/16/24 08:33 Pulse 88 03/16/24 12:01 Resp 20 03/16/24 08:33 BP 126/62 03/16/24 08:33 Pulse Ox 93 L 03/16/24 08:33 FiO2 35 03/16/24 08:51 Intake & Output 03/15/24 03/16/24 03/16/24 18:59 06:59 18:59 Intake Total 1079.5 20 260 Output Total 2550 800 Balance -1470.5 -780 260 Weight 67 kg 67 kg Intake: IV 30 20 20 Invasive Line 5 30 20 20 Intake, IV Titration 1049.5 Amount Mvi, Adult No.4 with Vit 1049.5 K 10 ml Trace (Conc-1Ml/ Dose) 1 ml Sodium Chloride 4Meq/ml Vial 56 meq Potassium Acetate 10 meq Calcium Gluconate 1 gm Magnesium Sulfate gm 1 .25 gm Sodium Phosphate 21 mmol In Amino Acids 5 %/Dextrose 20 % 1,000 ml @ 45 mls/hr IV .[id number] [facility] Rx#:[id number] Oral 0 240 Output: Urine 400 Stool 2150 800 Other: Voiding Method Indwelling Catheter Indwelling Catheter Indwelling Catheter ABP, PAP, CO, CI - Last Documented Arterial Blood Pressure 91/88 - Exam GENERAL DESCRIPTION: Middle-age man lying in bed in no distress RESPIRATORY SYSTEM: Unlabored breathing , decreased intensity of breath sounds HEART: S1 S2 regular rate and rhythm , ABDOMEN: Soft , no tenderness - Labs CBC & Chem 7: 03/18/24 04:30 01/01/25 04:30 Labs: Abnormal Lab Results - Last 24 Hours (Table) 03/15/24 03/16/24 03/16/24 Range/Units 16:26 00:09 05:57 BUN (9-20) mg/dL Creatinine (0.66-1.25) mg/dL Glucose (74-99) mg/dL POC Glucose (mg/dL) 128 H 118 H 111 H (70-110) mg/dL 03/16/24 03/16/24 Range/Units 10:46 11:29 BUN 22 H (9-20) mg/dL Creatinine 0.46 L (0.66-1.25) mg/dL Glucose 121 H (74-99) mg/dL POC Glucose (mg/dL) 128 H (70-110) mg/dL Assessment and Plan (1) Pneumonia Current Visit: No Status: Acute Code(s): J18.9 - PNEUMONIA, UNSPECIFIED ORGANISM SNOMED Code(s): 407070871 (2) Sepsis Current Visit: No Status: Acute Code(s): A41.9 - SEPSIS, UNSPECIFIED ORGANISM SNOMED Code(s): 56558442 Plan: 1patient presented to hospital with sepsis in this patient who did have a low- grade fever elevated white count tachycardia meeting criteria for SIRS source likely pneumonia at this patient presenting with increasing shortness of breath cough with evidence of right-sided infiltrate, patient has been admitted to the hospital and will need to cover for resistant gram-positive as well as gram- negative 2-patient is status post bronchoscopy and lavage completed on 03/02/2024 cultures currently growing Pseudomonas that is resistant to cefepime, 3-patient is afebrile white count is normal and chest x-ray did shows improvement, patient will be continued on Zosyn did have issues with his trach pulmonary and surgery is following patient and further management per them Dictation was produced using [employer] dictation software. please excuse any gramm atical, word or spelling errors. Time with Patient: Less than 30
--- NOTE | 2024-03-18 09:24 | P.PN ---
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 Tracheostomy has been removed the patient has been intubated and transferred back to the ICU. On today's visit that is 03/17/2024, Patient is afebrile this morning patient intubated on the ventilator FiO2 is currently stable at 60% no significant purulent secretion through the ET patient not requiring any pressor support no other changes reported by nursing staff. Patient white count 7.2, creatinine 0.45 Objective - Vital Signs Vital signs: Vital Signs Temp 98 F 03/17/24 08:00 Pulse 89 03/17/24 08:00 Resp 22 03/17/24 09:53 BP 141/78 03/17/24 08:00 Pulse Ox 84 L 03/17/24 09:53 FiO2 90 03/17/24 12:06 Intake & Output 03/16/24 03/17/24 03/17/24 18:59 06:59 18:59 Intake Total 1559.5 220 120 Output Total 2550 3000 1400 Balance -990.5 -2780 -1280 Weight 67 kg 91.5 kg Intake: IV 30 20 Invasive Line 5 30 20 Intake, IV Titration 1049.5 Amount Mvi, Adult No.4 with Vit 1049.5 K 10 ml Trace (Conc-1Ml/ Dose) 1 ml Sodium Chloride 4Meq/ml Vial 56 meq Potassium Acetate 10 meq Calcium Gluconate 1 gm Magnesium Sulfate gm 1 .25 gm Sodium Phosphate 21 mmol In Amino Acids 5 %/Dextrose 20 % 1,000 ml @ 45 mls/hr IV .[id number] [facility] Rx#:[id number] Oral 480 200 120 Output: Urine 500 500 Stool 2050 3000 900 Other: Voiding Method Indwelling Catheter Indwelling Catheter Indwelling Catheter ABP, PAP, CO, CI - Last Documented Arterial Blood Pressure 91/88 - Exam GENERAL DESCRIPTION: Middle-age man intubated on the vent RESPIRATORY SYSTEM: Unlabored breathing , decreased intensity of breath sounds HEART: S1 S2 regular rate and rhythm , ABDOMEN: Soft , no tenderness - Labs CBC & Chem 7: 03/18/24 04:30 03/18/24 04:30 Labs: Abnormal Lab Results - Last 24 Hours (Table) 03/16/24 03/16/24 03/17/24 Range/Units 16:56 19:58 00:04 Hgb (13.0-17.5) gm/dL Hct (39.0-53.0) % MCHC (31.0-37.0) g/dL RDW (11.5-15.5) % ABG pH (7.35-7.45) ABG pCO2 (35-45) mmHg ABG HCO3 (21-25) mmol/L ABG Total CO2 (19-24) mmol/L ABG O2 Saturation (94-97) % Hemoglobin (13.0-17.5) gm/dL Sodium (137-145) mmol/L BUN (9-20) mg/dL Creatinine (0.66-1.25) mg/dL Glucose (74-99) mg/dL POC Glucose (mg/dL) 126 H 138 H 139 H (70-110) mg/dL 03/17/24 03/17/24 03/17/24 Range/Units 08:50 08:50 11:52 Hgb 11.1 L (13.0-17.5) gm/dL Hct 38.8 L (39.0-53.0) % MCHC 28.7 L (31.0-37.0) g/dL RDW 16.0 H (11.5-15.5) % ABG pH (7.35-7.45) ABG pCO2 (35-45) mmHg ABG HCO3 (21-25) mmol/L ABG Total CO2 (19-24) mmol/L ABG O2 Saturation (94-97) % Hemoglobin (13.0-17.5) gm/dL Sodium 136 L (137-145) mmol/L BUN 21 H (9-20) mg/dL Creatinine 0.45 L (0.66-1.25) mg/dL Glucose 109 H (74-99) mg/dL POC Glucose (mg/dL) 134 H (70-110) mg/dL 03/17/24 Range/Units 11:58 Hgb (13.0-17.5) gm/dL Hct (39.0-53.0) % MCHC (31.0-37.0) g/dL RDW (11.5-15.5) % ABG pH 7.30 L (7.35-7.45) ABG pCO2 54 H (35-45) mmHg ABG HCO3 27 H (21-25) mmol/L ABG Total CO2 28 H (19-24) mmol/L ABG O2 Saturation 98.5 H (94-97) % Hemoglobin 10.7 L (13.0-17.5) gm/dL Sodium (137-145) mmol/L BUN (9-20) mg/dL Creatinine (0.66-1.25) mg/dL Glucose (74-99) mg/dL POC Glucose (mg/dL) (70-110) mg/dL Assessment and Plan (1) Pneumonia Current Visit: No Status: Acute Code(s): J18.9 - PNEUMONIA, UNSPECIFIED ORGANISM SNOMED Code(s): 821323455 (2) Sepsis Current Visit: No Status: Acute Code(s): A41.9 - SEPSIS, UNSPECIFIED ORGANISM SNOMED Code(s): 07726776 Plan: 1patient presented to hospital with sepsis in this patient who did have a low- grade fever elevated white count tachycardia meeting criteria for SIRS source likely pneumonia at this patient presenting with increasing shortness of breath cough with evidence of right-sided infiltrate, patient has been admitted to the hospital and will need to cover for resistant gram-positive as well as gram-neg ative 2-patient is status post bronchoscopy and lavage completed on 03/02/2024 cultures currently growing Pseudomonas that is resistant to cefepime, 3-patient did have significant change in his clinical condition requiring intubation and closure of his tracheostomy plan is for possible transfer to [facility] we will get the patient on Zosyn and monitor clinical course closely Dictation was produced using [employer] dictation software. please excuse any grammatical, word or spelling errors. Time with Patient: Less than 30
[2024-03-18 11:30] LABS: Glucose,Whole Blood 166 mg/dL (70-110)
--- NOTE | 2024-03-18 12:36 | P.PN ---
Subjective Principal diagnosis: Hypoxia. Patient is a 48-year-old male with complex past medical history including CVA, previous DVTs, right BKA, cardiac arrest in 2021, Crohn's disease, enterocutaneous fistulas, previous bowel resection, ventilator dependent respiratory failure, previous tracheostomy and reversal. Recently was admitted 12/13/2023 through 12/25/2023 for pneumonia and respiratory failure due to mucous plugging. He was intubated and placed on mechanical ventilator for approximately 6 days. He did have a bronchoscopy with BAL, microbiology positive for haemophilus influenza. Eventually, discharged home, and returned 01/02/24 for GIB from his ostomy. Was reintubated and did spend some time on the ventilator for reccurent pneumonia and mucous plugging. During this time, had multiple bronchoscopies with BAL, once on 12/31/2023 and again on 01/03/2024, isolated organisms including MRSA and Pseudomonas. Patient was eventually discharged back home on 01/16/2024. More recently, patient had an ER visit for increased work of breathing on February 22, and the patient was sent home. Returned for similar symptoms yesterday afternoon. Chest x-ray done on admission showing cardiomegaly with pulmonary vascular congestion and questionable right lower lobe infiltrate or effusion. CBC: WBC count 11.2, hemoglobin 10.5, hematocrit 37.3, platelets 315. CMP: Sodium 138, potassium 4.8, chloride 97, serum bicarb 39, BUN 23, creatinine 0.45, glucose 103. Lactic 1. LFTs unremarkable. Troponin less than 0.012. I am evaluating this patient emergency department, he is currently unresponsive, to even painful stimuli. He is on a 15 L nonrebreather. SpO2 88%. Diminished breath sounds on the right Will place this patient on BiPAP with initial settings 16/5 FiO2 to be titrated accordingly. Will get a stat ABG. We will repeat chest x-ray. I did talk to the patient's son, Alan, he is adamant that the patient remain a full code, would want the patient intubated if necessary. On reassessment in the emergency department, patient remained on BiPAP with settings 16/5 100%. He remains unresponsive to painful stimuli. Now only achieving tidal volumes ranging from 100 to 200 cc. Unfortunately, we were not able to to get an initial blood gas. I recommended that the patient be moved to the trauma bay and intubated by the DIGITAL OPERATIONS ANALYST. Follow-up chest x-ray showing the endotracheal tube in appropriate position above the avery. Orogastric tube coursing below the diaphragm. Initial ventilator settings include assist- control, respiratory rate 20, tidal volume 500, FiO2 100%, PEEP of 5. Currently, patient is fairly asynchronous with the ventilator and he is biting the tube. There are copious amounts of blood-tinged sputum in the ET tube. Elevated peak airway pressures of 45. Static pressure 32. The nurses are working on appropriately sedating the patient with propofol. Postintubation, the patient did become hypotensive, currently receiving his second liter of normal saline. Will also start the patient on norepinephrine to maintain a MAP of greater than 65 mmHg. I did insert a left femoral arterial line. Following this, we did obtain an ABG showing profound hypercapnic and hypoxic respiratory failure. PaO2 of 89, pCO2 98, pH of 7.11. Appropriate ventilator adjustments were made including increasing the rate to 26 and PEEP can be increased to 8. Patient may eventually need repeat bronchoscopy with BAL. Case will be discussed with Dr. Munoz. Patient is still waiting for a bed in the intensive care unit. I did call and update patient's son Alan about his change in clinical condition. On 03/07/2024, the patient is awake and alert and the patient is currently off propofol. The patient is still on the mechanical ventilator assist-control mode rate of 16, tidal volume of 500, FiO2 50% with a PEEP of 6. Calm and comfortable and breathing comfortable. No significant secretions through the tracheostomy tube. Remains on IV Zosyn. He does have pseudomonal pneumonia for which she is on IV Zosyn based on antibiotic sensitivities. Remains on TPN and this was increased up to 60 cc an hour. Remains on anticoagulation with Lovenox 80 mg subcu every 12 hours. Ileostomy is still active and the patient is producing approximately 1000 cc of gastric output over the past 8 hours. Fluid balance -600 cc over the past 24 hours. White cell count is at 4.9 with a hemoglobin 8.8 and a platelet count of 255. BUN is 10 with a creatinine of 0.4 and the sodium is at 137 and a potassium level is at 4.1. Awake and alert and communicating. Profound weakness of lower extremities along with significant muscle atrophy. On 03/08/2024, the patient is on a T-piece at 40% FiO2. No significant r espiratory secretions., Comfortable and awake and communicating. He is asking for some oral intake of food. No respiratory difficulties. Remains on TPN at rate of 60 cc an hour. Ileostomy output has been 1500 over the past 8 hours. Fluid balance is 0. Remains on low-dose norepinephrine 0.04 mcg/kg/min. The white cell count of 5 with a hemoglobin 8.3 and a platelet count of 236. BUN is 8 with a creatinine of 0.37 and sodium levels at 137. He remains on IV Zosyn regarding his pseudomonal pneumonia. Chest x-ray findings are also stable. Patient was evaluated today on 03/09/2024, patient remains on T-piece, at 35% FiO2, seems to be fairly comfortable, does not seem to be in any distress, he is awake, communicating, does not seem to be in distress, still on TPN, 60 mL/h, patient is receiving treatment for pseudomonal infection/pneumonia and he is on Zosyn. Patient is to have a swallow evaluation today and possibly allow oral feeding. His tracheostomy was placed on 03/05, patient is still requiring low- dose norepinephrine at 0.01 mcg/kg/min. Basic metabolic profile is normal, bicarb is 37 BUN is 9 creatinine 0.41 chest x-ray continues show interstitial opacities with slight improvement specially in the right and left basilar areas Patient was evaluated today on 03/10/2024 remains in the ICU remains on T-piece at 28% FiO2 patient passed his swallow evaluation yesterday and now he is allowed to have oral feedings, in the meantime he is on TPN at 85 cc/h he is off norepinephrine since 5 AM this morning. Remains on Zosyn for his pseudomonal infection cough seems to be deflated for him to swallow and tolerate oral diet. Not much has happened in the last 24 hours otherwise. Labs were reviewed WBC count is 4.3 hemoglobin 9.3 basic metabolic profile is normal renal profile is normal Seen today on 03/12/2024, patient is doing well, he is on the medical floor, not in any distress, on 28% trach collar, remains on antibiotics, he is not requiring any pressors, hemodynamically stable, patient has a speaking valve and able to communicate. Denies any specific symptoms.WBC count is 6.2 hemoglobin is 10.1 electrolytes are normal renal profile is normal Patient was evaluated today on 03/13/2024, remains on trach collar, does not seem to be in any distress, WBC count 7.3 hemoglobin 9.3 electrolytes are normal potassium is a bit high at 5.3 renal profile is normal, overall the patient is doing great. Seen today on 03/14/2024, patient is doing well, being fed by his mother at bedside, patient is asymptomatic otherwise. Trach collar remains in place, patient is tolerating trach collar well, hardly any cough no wheezing no shortness of breath no chest pain no fever no chills no hemoptysis.Labs from today including basic metabolic profile noted and basically unremarkable on 03/15/2024, patient is basically about the same. Patient is laying in bed, being fed by his mother, tolerating feeding quite well, does not seem to be in any distress, continues to have trach collar in place, overall the patient is doing great, and eventually needs to be discharged home.WBC count 6.5 hemoglobin 10.2 basic metabolic profile is normal and renal profile is normal Progress note dated March 16, 2024. 48-year-old male who is now been here in the hospital for 20 days. The patient is seen today in room 367. The patient is on 35% trach collar. The patient is receiving IV Zosyn, and TPN at 45 cc an hour. The patient is laying nearly flat in bed. In no distress whatsoever. Current laboratory data includes a sodium 137, potassium 4.4, chlorides 103, CO2 23, BUN 22, creatinine 0.46. Glucose is 128. Calcium 10.1, phosphorus 3.0, magnesium 1.9. Bronchoscopy, with BAL, on March 02, revealed evidence of Pseudomonas aeruginosa, which was also disco lucas in his sputum, on February 25. Progress note dated March 17, 2024. 48-year-old male who was seen today in room 256. The patient was on the medical floor, and a rapid response was called on this patient, for respiratory distress. The respiratory therapist on the floor, could not ventilate the patient, despite using a [id number] device, and his saturations were in the 80s, so the patient was moved to the intensive care unit, for further monitoring and management. There, with the aid of the glide scope, the patient was orally intubated, as a tracheostomy tube, was removed. The patient was connected to the ventilator. He was sedated with propofol, and received some Nimbex for paralysis. Next, the patient underwent bronchoscopy, to evaluate the respiratory tract. There were thick secretions noted throughout, we did a BAL, of the right lung. 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 In addition to intubation, and bronchoscopy, the patient had a central line placed and a arterial line placed. Current labs include a white count 7.2, hemoglobin 9.1, hematocrit 38.8, platelet count 3 years 70,000. Blood gases show pO2 108, pCO2 of 54, pH is 7.30. The rate on the ventilator was increased to 28, and the PEEP was increased to 8, with orders to titrate the FiO2 down. Sodium 136, potassium 4.8, chlorides 103, CO2 24, BUN 21, creatinine 0.45. Chest x-ray shows endotracheal tube to be about 5 cm above the tracheal avery. There is a left lower lobe infiltrate. Progress note dated March 18, 2024. 48-year-old male who is seen today in room 256. Patient remains intubated, vent settings AC, rate 28, tidal volume 450, PEEP 8, FiO2 40 %. Blood gases show p.o. 266, pCO2 of 43, and pH 7.38. Sodium 136, potassium 4, chloride 103, CO2 21, BUN 20, creatinine 0.52. Chest x-ray shows mild atelectasis developing in the right diaphragm and endotracheal tube tip is 6.4 cm above the avery. Left central venous catheter tip is in the distal superior vena cava proximal right atrium. NG tube transverses the thorax. ROS: Cannot be assessed Pertinent imaging and labs reviewed. Physical examination: Sedated, currently paralyzed, with an orally placed endotracheal tube. Tracheostomy tube has been removed. HEENT examination is grossly unremarkable. Mucous membranes are moist. No oral lesions. Neck supple. Full range of motion. No adenopathy thyromegaly or neck vein distention. Cardiovascular examination reveals regular rhythm rate. S1-S2 normal. No S3 or S4. No discernible murmur noted. Lungs reveal coarse bilateral rhonchi. Breath sounds are equal. No wheezes or crackles. Abdomen soft, nontender, with functioning ileostomy. The patient also has an enterocutaneous fistula over the anterior abdominal wall. Extremities are intact. No cyanosis clubbing or edema. Right BKA. Skin is without rash or lesion. Neurologic examination is unable to be evaluated at this time. Assessment: Acute respiratory failure, with inability to oxygenate or ventilate this patient, status post oral placement of an endotracheal tube, with removal of the tracheostomy tube, March 17, 2024. Acute hypoxemic and hypercapnic respiratory failure, requiring intubation and mechanical ventilation on February 26, 2024. S/P tracheostomy on March 05, 2024. Pseudomonas aeruginosa pneumonia. 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 Sepsis/septic shock, secondary to Pseudomonas pneumonia. Crohn's disease, status post bowel perforation, colectomy, and diverting ileostomy. TPN for nutritional support. Profound electrolyte imbalance. Tracheobronchomalacia. History of DVT. History of CVA/TIA, with residual left-sided weakness. Right BKA. History of asystole, 2021. Plan: Plan dated March 16, 2024. The patient was seen today in room 367. He is currently on 35% trach collar. He is getting TPN at 45 cc an hour. For his Pseudomonas infection, he continues on Zosyn. Labs, x-rays, and all medications are reviewed. The patient had a repeat tracheostomy performed on this admission. Apparently he had developed some tracheal stenosis from his previous tracheostomy. We are looking back to see whether or not we can identify whether or not there was some sort of defect or abnormality or tracheal flap noted on previous bronchoscopy. Prognosis is guarded. Plan dated March 17, 2024. The patient was transferred to the intensive care unit. There, we could not ventilate or oxygenate the patient, it was very difficult to bag the patient. H ence, the patient was orally intubated, using the glide scope. #8 endotracheal tube was placed. In addition, the tracheostomy tube was removed. Central line and arterial line were placed. The patient was sedated with propofol and paralyzed with Nimbex. Labs, x-rays, medications are reviewed. Because of the patient's tracheal stenosis, I believe the patient would best served to be transferred to [facility], or a similar institution. Additional recommendations and suggestions are forthcoming. Labs, x-rays, and medications are reviewed. We did notify the primary service of our desire to transfer this patient. Plan dated March 18, 2024. The patient was seen today in the intensive care unit. On chest x-ray endotracheal tube seen 6.4 cm above the avery and RT moved ET tube closer so that it would be within 3 to 4 cm above the avery. Primary team has been notified of our desire to transfer this patient due to the high complexity of his case and tracheal stenosis. Patient still awaiting bed at an accepting hospital. Remains on LR 75 cc/h, Zosyn 100 mL IVPB Q8 HR, propofol 1000 Mg IV 15 mcg/kg/min. Additional recommendations and suggestions are forthcoming. Labs, x-rays, and medications are reviewed. Prognosis is guarded. Objective - Vital Signs Vital signs: Vital Signs Temp 97.6 F 03/18/24 04:00 Pulse 79 03/18/24 07:00 Resp 28 H 03/18/24 07:00 BP 106/62 03/18/24 06:00 Pulse Ox 96 03/18/24 07:00 FiO2 60 03/18/24 04:58 Intake & Output 03/17/24 03/18/24 03/18/24 18:59 06:59 18:59 Intake Total 2673.023 1949.549 123 Output Total 1855 490 35 Balance 741.532 3677.549 88 Weight 90.7 kg Intake: IV 949 1033 78 3cc/hr Lorrie 24 33 3 LR 75cc/hr 225 Lactated Ringers 1,000 ml 600 900 75 @ 75 mls/hr IV .[id number] ANNIE Rx#:[id number] Piperacillin-Tazobactam 3 100 100 .375 gm In Sodium Chloride 0.9% 100 ml @ 25 mls/hr IVPB Q8HR ANNIE Rx# :[id number] Intake, IV Titration 1229.023 376.549 Amount Mvi, Adult No.4 with Vit 1049.5 K 10 ml Trace (Conc-1Ml/ Dose) 1 ml Sodium Chloride 4Meq/ml Vial 56 meq Potassium Acetate 10 meq Calcium Gluconate 1 gm Magnesium Sulfate gm 1 .25 gm Sodium Phosphate 21 mmol In Amino Acids 5 %/Dextrose 20 % 1,000 ml @ 45 mls/hr IV .[id number] ANNIE Rx#:[id number] propofoL 1,000 mg In 179.523 376.549 Empty Bag 1 bag @ 15 MCG/ KG/MIN 8.235 mls/hr IV . [id number] [facility] Rx#:[id number] Oral 120 TPN/PPN 315 540 45 Mvi, Adult No.4 with Vit 315 540 45 K 10 ml Trace (Conc-1Ml/ Dose) 1 ml Sodium Chloride 4Meq/ml Vial 56 meq Potassium Acetate 10 meq Calcium Gluconate 1 gm Magnesium Sulfate gm 1 .25 gm Sodium Phosphate 21 mmol In Amino Acids 5 %/Dextrose 20 % 1,000 ml @ 45 mls/hr IV .[id number] [facility] Rx#:[id number] Other 60 Output: Urine 725 490 35 Stool 1130 Other: Voiding Method Indwelling Catheter Indwelling Catheter ABP, PAP, CO, CI - Last Documented Arterial Blood Pressure 118/58 - Labs CBC & Chem 7: 03/18/24 04:30 03/18/24 04:30 Labs: Abnormal Lab Results - Last 24 Hours (Table) 03/17/24 03/17/24 03/17/24 Range/Units 08:50 08:50 11:15 RBC (4.30-5.90) m/uL Hgb 11.1 L (13.0-17.5) gm/dL Hct 38.8 L (39.0-53.0) % MCHC 28.7 L (31.0-37.0) g/dL RDW 16.0 H (11.5-15.5) % ABG pH (7.35-7.45) ABG pCO2 (35-45) mmHg ABG pO2 (83-108) mmHg ABG HCO3 (21-25) mmol/L ABG Total CO2 (19-24) mmol/L ABG O2 Saturation (94-97) % Hemoglobin (13.0-17.5) gm/dL Sodium 136 L (137-145) mmol/L Carbon Dioxide (22-30) mmol/L BUN 21 H (9-20) mg/dL Creatinine 0.45 L (0.66-1.25) mg/dL Glucose 109 H (74-99) mg/dL POC Glucose (mg/dL) (70-110) mg/dL ALT (4-49) U/L Fluid Appearance Blood Tinged A (Clear) 03/17/24 03/17/24 03/17/24 Range/Units 11:52 11:58 17:04 RBC (4.30-5.90) m/uL Hgb (13.0-17.5) gm/dL Hct (39.0-53.0) % MCHC (31.0-37.0) g/dL RDW (11.5-15.5) % ABG pH 7.30 L (7.35-7.45) ABG pCO2 54 H (35-45) mmHg ABG pO2 (83-108) mmHg ABG HCO3 27 H (21-25) mmol/L ABG Total CO2 28 H (19-24) mmol/L ABG O2 Saturation 98.5 H (94-97) % Hemoglobin 10.7 L (13.0-17.5) gm/dL Sodium (137-145) mmol/L Carbon Dioxide (22-30) mmol/L BUN (9-20) mg/dL Creatinine (0.66-1.25) mg/dL Glucose (74-99) mg/dL POC Glucose (mg/dL) 134 H 130 H (70-110) mg/dL ALT (4-49) U/L Fluid Appearance (Clear) 03/18/24 03/18/24 03/18/24 Range/Units 04:30 04:30 04:31 RBC 4.11 L (4.30-5.90) m/uL Hgb 10.4 L (13.0-17.5) gm/dL Hct 34.7 L (39.0-53.0) % MCHC 30.1 L (31.0-37.0) g/dL RDW 16.1 H (11.5-15.5) % ABG pH (7.35-7.45) ABG pCO2 (35-45) mmHg ABG pO2 (83-108) mmHg ABG HCO3 (21-25) mmol/L ABG Total CO2 (19-24) mmol/L ABG O2 Saturation (94-97) % Hemoglobin (13.0-17.5) gm/dL Sodium 136 L (137-145) mmol/L Carbon Dioxide 21 L (22-30) mmol/L BUN (9-20) mg/dL Creatinine 0.52 L (0.66-1.25) mg/dL Glucose 156 H (74-99) mg/dL POC Glucose (mg/dL) 151 H (70-110) mg/dL ALT 77 H (4-49) U/L Fluid Appearance (Clear) 03/18/24 03/18/24 Range/Units 05:04 05:27 RBC (4.30-5.90) m/uL Hgb (13.0-17.5) gm/dL Hct (39.0-53.0) % MCHC (31.0-37.0) g/dL RDW (11.5-15.5) % ABG pH (7.35-7.45) ABG pCO2 (35-45) mmHg ABG pO2 166 H (83-108) mmHg ABG HCO3 (21-25) mmol/L ABG Total CO2 27 H (19-24) mmol/L ABG O2 Saturation >100.0 H (94-97) % Hemoglobin 10.3 L (13.0-17.5) gm/dL Sodium (137-145) mmol/L Carbon Dioxide (22-30) mmol/L BUN (9-20) mg/dL Creatinine (0.66-1.25) mg/dL Glucose (74-99) mg/dL POC Glucose (mg/dL) 143 H (70-110) mg/dL ALT (4-49) U/L Fluid Appearance (Clear)
[2024-03-18] MEDS: HYDROmorphone 1 MG/ML 1 ML SYRINGE IVP PRN (12:41)
--- NOTE | 2024-03-18 15:15 | P.PN ---
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 Tracheostomy has been removed the patient has been intubated and transferred back to the ICU. On today's visit that is 03/18/2024,the patient remains to be febrile patient remains to be debated on the vent FiO2 is down to 40% no significant pleural effusions in the ET patient is awake and responding to his family and answer some simple question, no other changes reported by the nursing staff. Patient white count is 8.9 creatinine 0.52, repeat BAL growing Pseudomonas Objective - Vital Signs Vital signs: Vital Signs Temp 97.4 F L 03/18/24 12:15 Pulse 72 03/18/24 15:07 Resp 28 H 03/18/24 14:15 BP 117/58 03/18/24 11:45 Pulse Ox 97 03/18/24 14:15 FiO2 40 03/18/24 15:07 Intake & Output 03/17/24 03/18/24 03/18/24 18:59 06:59 18:59 Intake Total 2673.023 6416.174 5656.625 Output Total 7318 136 0696 Balance 376.039 2611.549 881.625 Weight 90.7 kg Intake: IV 949 1033 702 3cc/hr Lorrie 24 33 27 LR 75cc/hr 225 Lactated Ringers 1,000 ml 600 900 675 @ 75 mls/hr IV .[id number] ANNIE Rx#:[id number] Piperacillin-Tazobactam 3 100 100 .375 gm In Sodium Chloride 0.9% 100 ml @ 25 mls/hr IVPB Q8HR ANNIE Rx# :[id number] Intake, IV Titration 1229.023 797.798 6970.625 Amount Fat Emulsion 20% 250 ml 63 In Empty Bag 1 bag @ 21 mls/hr IV Q72H ANNIE Rx#: [id number] Mvi, Adult No.4 with Vit 1049.5 1000.5 K 10 ml Trace (Conc-1Ml/ Dose) 1 ml Sodium Chloride 4Meq/ml Vial 56 meq Potassium Acetate 10 meq Calcium Gluconate 1 gm Magnesium Sulfate gm 1 .25 gm Sodium Phosphate 21 mmol In Amino Acids 5 %/Dextrose 20 % 1,000 ml @ 45 mls/hr IV .[id number] ANNIE Rx#:[id number] Norepinephrine 8 mg In 122.943 Sodium Chloride 0.9% 250 ml @ 0.03 MCG/KG/MIN 5. 312 mls/hr IV .Q24H ANNIE Rx#:[id number] propofoL 1,000 mg In 179.523 376.549 183.182 Empty Bag 1 bag @ 15 MCG/ KG/MIN 8.235 mls/hr IV . Q12H9M ANNIE Rx#:[id number] Oral 120 TPN/PPN 315 540 90 Mvi, Adult No.4 with Vit 315 540 90 K 10 ml Trace (Conc-1Ml/ Dose) 1 ml Sodium Chloride 4Meq/ml Vial 56 meq Potassium Acetate 10 meq Calcium Gluconate 1 gm Magnesium Sulfate gm 1 .25 gm Sodium Phosphate 21 mmol In Amino Acids 5 %/Dextrose 20 % 1,000 ml @ 45 mls/hr IV .[id number] ANNIE Rx#:[id number] Other 60 Output: Urine 725 490 380 Stool 1130 900 Other: Voiding Method Indwelling Catheter Indwelling Catheter Indwelling Catheter ABP, PAP, CO, CI - Last Documented Arterial Blood Pressure 101/47 - Exam GENERAL DESCRIPTION: Middle-age man intubated on the vent RESPIRATORY SYSTEM: Unlabored breathing , decreased intensity of breath sounds HEART: S1 S2 regular rate and rhythm , ABDOMEN: Soft , no tenderness - Labs CBC & Chem 7: 03/18/24 04:30 03/18/24 04:30 Labs: Abnormal Lab Results - Last 24 Hours (Table) 03/17/24 03/17/24 03/18/24 Range/Units 11:15 17:04 04:30 RBC (4.30-5.90) m/uL Hgb (13.0-17.5) gm/dL Hct (39.0-53.0) % MCHC (31.0-37.0) g/dL RDW (11.5-15.5) % ABG pO2 (83-108) mmHg ABG Total CO2 (19-24) mmol/L ABG O2 Saturation (94-97) % Hemoglobin (13.0-17.5) gm/dL Sodium 136 L (137-145) mmol/L Carbon Dioxide 21 L (22-30) mmol/L Creatinine 0.52 L (0.66-1.25) mg/dL Glucose 156 H (74-99) mg/dL POC Glucose (mg/dL) 130 H (70-110) mg/dL ALT 77 H (4-49) U/L Fluid Appearance Blood Tinged A (Clear) 03/18/24 03/18/24 03/18/24 Range/Units 04:30 04:31 05:04 RBC 4.11 L (4.30-5.90) m/uL Hgb 10.4 L (13.0-17.5) gm/dL Hct 34.7 L (39.0-53.0) % MCHC 30.1 L (31.0-37.0) g/dL RDW 16.1 H (11.5-15.5) % ABG pO2 166 H (83-108) mmHg ABG Total CO2 27 H (19-24) mmol/L ABG O2 Saturation >100.0 H (94-97) % Hemoglobin 10.3 L (13.0-17.5) gm/dL Sodium (137-145) mmol/L Carbon Dioxide (22-30) mmol/L Creatinine (0.66-1.25) mg/dL Glucose (74-99) mg/dL POC Glucose (mg/dL) 151 H (70-110) mg/dL ALT (4-49) U/L Fluid Appearance (Clear) 03/18/24 03/18/24 Range/Units 05:27 11:28 RBC (4.30-5.90) m/uL Hgb (13.0-17.5) gm/dL Hct (39.0-53.0) % MCHC (31.0-37.0) g/dL RDW (11.5-15.5) % ABG pO2 (83-108) mmHg ABG Total CO2 (19-24) mmol/L ABG O2 Saturation (94-97) % Hemoglobin (13.0-17.5) gm/dL Sodium (137-145) mmol/L Carbon Dioxide (22-30) mmol/L Creatinine (0.66-1.25) mg/dL Glucose (74-99) mg/dL POC Glucose (mg/dL) 143 H 166 H (70-110) mg/dL ALT (4-49) U/L Fluid Appearance (Clear) Microbiology - Last 24 Hours (Table) 03/17/24 11:15 Gram Stain - Preliminary Bronchoalviolar Lavage - Right Bronchial Washings Culture - Preliminary Pseudomonas aeruginosa Assessment and Plan (1) Pneumonia Current Visit: No Status: Acute Code(s): J18.9 - PNEUMONIA, UNSPECIFIED ORGANISM SNOMED Code(s): 015080873 (2) Sepsis Current Visit: No Status: Acute Code(s): A41.9 - SEPSIS, UNSPECIFIED ORGANISM SNOMED Code(s): 24106196 Plan: 1patient presented to hospital with sepsis in this patient who did have a low- grade fever elevated white count tachycardia meeting criteria for SIRS source likely pneumonia at this patient presenting with increasing shortness of breath cough with evidence of right-sided infiltrate, patient has been admitted to the hospital and will need to cover for resistant gram-positive as well as gram- negative 2-patient is status post bronchoscopy and lavage completed on 03/02/2024 cultures currently growing Pseudomonas that is resistant to cefepime, 3-patient did have repeat bronchoscopy done with a culture now showing Pseudomonas sensitivities will be followed continue with Zosyn Mother at the bedside question answered Dictation was produced using [employer] dictation software. please excuse any grammatical, word or spelling errors. Time with Patient: Less than 30
[2024-03-18 17:45] LABS: Glucose,Whole Blood 132 mg/dL (70-110)
--- NOTE | 2024-03-18 19:56 | P.PN ---
Subjective This is a pleasant 48-year-old male who was recently admitted with hypoxia concerns of pneumonia initially with significant mucous plugging being followed by multiple consultations in the ICU with concerns of sepsis and difficulty weaning requiring tracheostomy. Cultures finalized from the sputum with Pseudomonas and is maintained on antibiotics in the form of Zosyn with infectious disease following. Patient doing well on tracheostomy and planning on ECF possibly in the next few days early next week. Patient is afebrile and will continue antibiotics with the plans for 10 days to 2 weeks on IV antibiotic therapy on discharge. Will discuss further with case management/social work regarding discharge planning. Patient has been moved out of the ICU and remained stable at this time. Recommend aspiration precautions and sitting with the head of the bed elevated 30 to 45 degrees at all times 03/14/2024 Patient is seen in follow-up today with no acute overnight issues noted. Patient is tolerating oral intake and also continued on TPN. Patient does have a PICC line and will be continuing on 10 days to 2 weeks of Zosyn on discharge per ID recommendations. Case management/social work following working on accepting ECF and currently [facility] is reviewing. Patient is afebrile with no reports of increasing shortness of breath and denies chest pain. 03/15/2024 Patient is seen in follow-up today with no acute overnight issues noted patient per nursing staff did have 1 brief episode of blood in the ostomy that was minute although will order stat CBC patient has had no further episodes. Patient is afebrile with no reports of chest pain or worsening shortness of breath tolerating tracheostomy and is continued on diet along with TPN and will continue. Patient continues on IV Zosyn with infectious disease following and will discuss further with case management/social work regarding discharge planning and currently awaiting an accepting ECF. Multiple other facilities have received the patient thus far. Patient will need continued IV antibiotic therapy on discharge for 10 days to 2 weeks. 03/16/2024 Patient is seen in follow-up today and per nursing staff having some issues with swelling and irritation around the tracheostomy site. General surgery following recommending causing the area and continue monitoring closely. Per nursing staff patient was desatting quickly and is currently maintained on trach collar 8. Patient is afebrile denies chest pain or palpitations. Patient is tolerating diet and also maintained on TPN. Patient will continue on IV antibiotics with infectious disease following and does have a PICC line. Awaiting clearance from consultations to discuss discharge planning to ECF. Ca se management following working on accepting ECF. 03/17 Patient today was becoming more hypoxic and oxygen dropped to mid 80s on high 70s while he is on FiO2 of 100%. Getting it through trach collar in place. He was awake alert complaining from breathing difficulty mildly tachypneic while at rest. Complaining from some pain in his right chest. Abdomen is soft and there is big wound in the middle of the abdomen with fecal management system in place. Connected to his abdominal wound Medina catheter in place A team was called. Patient was transferred to the ICU for further management. Labs from today showing WBC 7.2, hemoglobin 11.1. Creatinine within the reference range at 0.45. Glucose controlled. Chest x-ray: Showing no acute pulmonary process. Looks like there is chronic elevation of the right diaphragm. 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 03/18/24 Patient remains in the ICU he is intubated and on mechanical ventilation through the oral cavity. However he was awake this morning and he follows simple commands. Nevertheless patient remains very sick. He is in septic shock requiring pressors with high-dose of Levophed. He is currently covered with Zosyn with bronchoalveolar lavage washing and growing Pseudomonas from 2 days ago. Microorganism is resistant to cefepime. Therefore patient is continued on Zosyn per ID team. Also he is getting TPN and Ringer lactate at 75 mL/h Chest x-ray which I reviewed by myself per radiologist with has atelectasis, I reviewed the chest x-ray by myself. Yesterday we tried to transfer the patient to [facility] regarding his recurrent respiratory distress related to his tracheomalacia but he was denied. Today is holiday and no staff besides vanna has full capacity at the not accepting new patients per Staff. Active Medications Generic Name Dose Route Start Last Admin Trade Name Freq PRN Reason Stop Dose Admin Albuterol/Ipratropium 3 ml 03/11/24 08:00 03/18/24 15:06 Ipratropium-Albuterol 3 Ml Neb INHALATION 3 ml RT-QID ANNIE Administration Albuterol/Ipratropium 3 ml 03/10/24 20:30 Ipratropium-Albuterol 3 Ml Neb INHALATION RT-Q2H PRN Shortness Of Breath Or Wheezing Budesonide 1 mg 03/12/24 12:45 03/18/24 08:31 Budesonide 1 Mg/2 Ml Nebu INHALATION 1 mg RT-BID ANNIE Administration Chlorhexidine Gluconate 15 ml 03/17/24 21:00 03/18/24 08:43 Chlorhexidine Gluconate 15 Ml Cup MUCOUS MEM 15 ml BID ANNIE Administration Dextrose/Water 25 ml 02/26/24 08:17 Dextrose 50% Syringe 50 Ml IVP PER PROTOCOL PRN Hypoglycemia Protocol Dextrose/Water 50 ml 02/26/24 08:17 Dextrose 50% Syringe 50 Ml IVP PER PROTOCOL PRN Hypoglycemia Protocol Enoxaparin Sodium 80 mg 02/26/24 21:00 03/18/24 08:51 Enoxaparin 80 Mg/0.8 Ml Syringe SQ 80 mg BID@0900,2100 ANNIE Administration Folic Acid 1 mg 03/12/24 12:00 03/18/24 12:55 Folic Acid 1 Mg Tab PO 1 mg DAILY@1200 ANNIE Administration Hydrocortisone Sodium Succinate 50 mg 03/10/24 15:00 03/18/24 15:49 Hydrocortisone Succinate 100 Mg/2 Ml Vial IV 50 mg Q8HR ANNIE Administration Hydromorphone HCl 1 mg 03/18/24 12:20 03/18/24 18:18 Hydromorphone 1 Mg/Ml 1 Ml Syringe IVP 1 mg Q3HR PRN Administration Analgesia Fat Emulsion Intravenous 250 250 mls @ 21 mls/hr 03/09/24 12:00 03/18/24 12:44 ml/ IV Solution IV 21 mls/hr Q72H ANNIE Administration Parenteral Vitamin Supplement 1,049.5 mls @ 45 mls/hr 03/13/24 13:00 03/18/24 11:56 10 ml/ Zinc/Copper/Manganese/ IV 45 mls/hr Selenium 1 ml/ Sodium Chloride .[id number] ANNIE Administration 56 meq/ Potassium Acetate 10 meq/ Calcium Gluconate 1 gm/ Magnesium Sulfate 1.25 gm/ Sodium Phosphate 21 mmol/ Amino Acids/Dextrose Piperacillin Sod/Tazobactam 100 mls @ 25 mls/hr 03/15/24 16:40 03/18/24 16:50 Sod 3.375 gm/ Sodium Chloride IVPB 25 mls/hr Q8HR ANNIE Administration Protocol Propofol 1,000 mg/ IV Solution 100 mls @ 8.235 mls/hr 03/17/24 11:15 03/18/24 15:48 IV 55 mcg/kg/min .Q12H9M ANNIE 30.195 mls/hr Administration Protocol 15 MCG/KG/MIN Norepinephrine Bitartrate 8 mg 258 mls @ 5.312 mls/hr 03/17/24 12:30 03/18/24 17:45 / Sodium Chloride IV 0 mcg/kg/min .Q24H ANNIE 0 mls/hr Titration Protocol 0.03 MCG/KG/MIN Lactated Ringer's 1,000 mls @ 75 mls/hr 03/17/24 11:00 03/18/24 15:55 Lactated Ringers IV 75 mls/hr .[id number] ANNIE Administration Insulin Aspart 0 unit 02/26/24 12:00 03/18/24 18:05 Insulin Aspart (Novolog) 100 Unit/Ml Vial SQ Not Given Q6H [facility] Protocol Miscellaneous Information 1 each 02/27/24 12:26 Phosphorus Replacement Protoco 1 Each Misc MISCELLANE DAILY PRN Per Protocol Protocol Miscellaneous Information 1 each 02/27/24 12:28 Potassium Replacement Protocol 1 Each Misc MISCELLANE DAILY PRN Per Protocol Protocol Miscellaneous Information 1 each 03/10/24 06:32 Magnesium Replacement Protocol 1 Each Misc MISCELLANE DAILY PRN Per Protocol Protocol Multivitamins 1 each 03/12/24 12:00 03/18/24 13:09 Multivitamins, Thera 1 Each Tab PO Not Given DAILY@1200 ANNIE Naloxone HCl 0.2 mg 02/25/24 17:20 02/26/24 02:02 Naloxone 0.4 Mg/Ml 1 Ml Vial IV 0.2 mg Q2M PRN Administration Opioid Reversal Pantoprazole Sodium 40 mg 02/26/24 09:00 03/18/24 08:43 Pantoprazole 40 Mg/10 Ml Vial IVP 40 mg DAILY ANNIE Administration Thiamine HCl 100 mg 03/11/24 17:30 03/18/24 17:22 Thiamine 100 Mg Tab PO 100 mg BID-W/MEALS ANNIE Administration Objective - Vital Signs Vital signs: Vital Signs Temp 97.4 F L 03/18/24 12:15 Pulse 78 03/18/24 19:00 Resp 28 H 03/18/24 19:00 BP 117/58 03/18/24 17:15 Pulse Ox 97 03/18/24 19:00 FiO2 40 03/18/24 16:00 Intake & Output 03/18/24 03/18/24 03/19/24 06:59 18:59 06:59 Intake Total 9288.635 3321.829 99 Output Total 490 1400 240 Balance 0951.339 6621.829 -141 Weight 90.7 kg Intake: IV 1033 1036 78 3cc/hr Lorrie 33 36 3 Lactated Ringers 1,000 ml 900 900 75 @ 75 mls/hr IV .[id number] ANNIE Rx#:[id number] Piperacillin-Tazobactam 3 100 100 .375 gm In Sodium Chloride 0.9% 100 ml @ 25 mls/hr IVPB Q8HR ANNIE Rx# :[id number] Intake, IV Titration 761.022 3206.829 21 Amount Fat Emulsion 20% 250 ml 126 21 In Empty Bag 1 bag @ 21 mls/hr IV Q72H ANNIE Rx#: [id number] Mvi, Adult No.4 with Vit 1000.5 K 10 ml Trace (Conc-1Ml/ Dose) 1 ml Sodium Chloride 4Meq/ml Vial 56 meq Potassium Acetate 10 meq Calcium Gluconate 1 gm Magnesium Sulfate gm 1 .25 gm Sodium Phosphate 21 mmol In Amino Acids 5 %/Dextrose 20 % 1,000 ml @ 45 mls/hr IV .[id number] ANNIE Rx#:[id number] Norepinephrine 8 mg In 136.046 Sodium Chloride 0.9% 250 ml @ 0.03 MCG/KG/MIN 5. 312 mls/hr IV .Q24H ANNIE Rx#:[id number] propofoL 1,000 mg In 376.549 276.283 Empty Bag 1 bag @ 15 MCG/ KG/MIN 8.235 mls/hr IV . Q12H9M ANNIE Rx#:[id number] TPN/PPN 540 90 Mvi, Adult No.4 with Vit 540 90 K 10 ml Trace (Conc-1Ml/ Dose) 1 ml Sodium Chloride 4Meq/ml Vial 56 meq Potassium Acetate 10 meq Calcium Gluconate 1 gm Magnesium Sulfate gm 1 .25 gm Sodium Phosphate 21 mmol In Amino Acids 5 %/Dextrose 20 % 1,000 ml @ 45 mls/hr IV .[id number] ANNIE Rx#:[id number] Output: Urine 490 500 40 Stool 900 200 Other: Voiding Method Indwelling Catheter Indwelling Catheter ABP, PAP, CO, CI - Last Documented Arterial Blood Pressure 95/44 - Exam -GENERAL: The patient is currently intubated and on mechanical ventilation HEENT: Pupils are round and equally reacting to light. EOMI. No scleral icterus. No conjunctival pallor. Normocephalic, atraumatic. No pharyngeal erythema. No thyromegaly. CARDIOVASCULAR: S1 and S2 present. No murmurs, rubs, or gallops. -PULMONARY: Chest is clear to auscultation, no wheezing , no crackles. Decreased breath sounds on both sides ABDOMEN: Soft, nontender, nondistended, normoactive bowel sounds. No palpable organomegaly. Central abdominal wound with similar to colostomy bag in place connected to fecal management system MUSCULOSKELETAL: No joint swelling or deformity. EXTREMITIES: No cyanosis, clubbing, or pedal edema. NEUROLOGICAL: Gross neurological examination did not reveal any focal deficits. SKIN: No rashes. no petechiae. - Labs CBC & Chem 7: 03/18/24 04:30 03/18/24 04:30 Labs: Abnormal Lab Results - Last 24 Hours (Table) 03/17/24 03/18/24 03/18/24 Range/Units 11:15 04:30 04:30 RBC 4.11 L (4.30-5.90) m/uL Hgb 10.4 L (13.0-17.5) gm/dL Hct 34.7 L (39.0-53.0) % MCHC 30.1 L (31.0-37.0) g/dL RDW 16.1 H (11.5-15.5) % ABG pO2 (83-108) mmHg ABG Total CO2 (19-24) mmol/L ABG O2 Saturation (94-97) % Hemoglobin (13.0-17.5) gm/dL Sodium 136 L (137-145) mmol/L Carbon Dioxide 21 L (22-30) mmol/L Creatinine 0.52 L (0.66-1.25) mg/dL Glucose 156 H (74-99) mg/dL POC Glucose (mg/dL) (70-110) mg/dL ALT 77 H (4-49) U/L Fluid Appearance Blood Tinged A (Clear) 03/18/24 03/18/24 03/18/24 Range/Units 04:31 05:04 05:27 RBC (4.30-5.90) m/uL Hgb (13.0-17.5) gm/dL Hct (39.0-53.0) % MCHC (31.0-37.0) g/dL RDW (11.5-15.5) % ABG pO2 166 H (83-108) mmHg ABG Total CO2 27 H (19-24) mmol/L ABG O2 Saturation >100.0 H (94-97) % Hemoglobin 10.3 L (13.0-17.5) gm/dL Sodium (137-145) mmol/L Carbon Dioxide (22-30) mmol/L Creatinine (0.66-1.25) mg/dL Glucose (74-99) mg/dL POC Glucose (mg/dL) 151 H 143 H (70-110) mg/dL ALT (4-49) U/L Fluid Appearance (Clear) 03/18/24 03/18/24 Range/Units 11:28 17:31 RBC (4.30-5.90) m/uL Hgb (13.0-17.5) gm/dL Hct (39.0-53.0) % MCHC (31.0-37.0) g/dL RDW (11.5-15.5) % ABG pO2 (83-108) mmHg ABG Total CO2 (19-24) mmol/L ABG O2 Saturation (94-97) % Hemoglobin (13.0-17.5) gm/dL Sodium (137-145) mmol/L Carbon Dioxide (22-30) mmol/L Creatinine (0.66-1.25) mg/dL Glucose (74-99) mg/dL POC Glucose (mg/dL) 166 H 132 H (70-110) mg/dL ALT (4-49) U/L Fluid Appearance (Clear) Microbiology - Last 24 Hours (Table) 03/17/24 11:15 Gram Stain - Preliminary Bronchoalviolar Lavage - Right Bronchial Washings Culture - Preliminary Pseudomonas aeruginosa Assessment and Plan Assessment: Pseudomonas pneumonia with sepsis, and acute hypoxic respiratory failure with right lower lobe pneumonia, present on admission, status post mechanical ventilation requiring tracheostomy, culture showing Pseudomonas Septic shock secondary to above Acute hypoxic respiratory failure secondary to above requiring intubation and me chanical ventilation on 03/17 Status post tracheostomy Recurrent mucous plugging 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 ID team on the case. Patient may benefit also from adding another antibiotics like levofloxacin as it is sensitive as well however will defer antibiotic management to infectious disease team Continue with TPN Continue with IV hydrocortisone 50 mg 3 times daily Continue with IV fluid Ringer lactate Continue with Zosyn Continue therapeutic dose of Lovenox 80 mg twice daily. Pulmonary team consulted on the case Infectious disease and general surgery team consult Labs and medication were reviewed.. Continue same treatment. Continue with symptomatic treatment. Resume home medication. Monitor labs and vitals. DVT and GI prophylaxis. Further recommendations as per clinical course of the patient DVT prophylaxis: Subcutaneous heparin GI Prophylaxis: Protonix PT/OT: Pending Prognosis is guarded Lovenox
--- NOTE | 2024-03-18 20:00 | P.PN ---
Subjective patient seen and evaluated at bedside. Patient doing well, no issues overnight. Objective - Vital Signs Vital signs: Vital Signs Temp 97.4 F L 03/18/24 12:15 Pulse 78 03/18/24 19:00 Resp 28 H 03/18/24 19:00 BP 117/58 03/18/24 17:15 Pulse Ox 97 03/18/24 19:00 FiO2 40 03/18/24 16:00 Intake & Output 03/18/24 03/18/24 03/19/24 06:59 18:59 06:59 Intake Total 2413.459 7073.829 99 Output Total 490 1400 240 Balance 9936.588 7792.829 -141 Weight 90.7 kg Intake: IV 1033 1036 78 3cc/hr [place] 33 36 3 Lactated Ringers 1,000 ml 900 900 75 @ 75 mls/hr IV .[id number] ANNIE Rx#:[id number] Piperacillin-Tazobactam 3 100 100 .375 gm In Sodium Chloride 0.9% 100 ml @ 25 mls/hr IVPB Q8HR ANNIE Rx# :[id number] Intake, IV Titration 145.621 1343.829 21 Amount Fat Emulsion 20% 250 ml 126 21 In Empty Bag 1 bag @ 21 mls/hr IV Q72H ANNIE Rx#: [id number] Mvi, Adult No.4 with Vit 1000.5 K 10 ml Trace (Conc-1Ml/ Dose) 1 ml Sodium Chloride 4Meq/ml Vial 56 meq Potassium Acetate 10 meq Calcium Gluconate 1 gm Magnesium Sulfate gm 1 .25 gm Sodium Phosphate 21 mmol In Amino Acids 5 %/Dextrose 20 % 1,000 ml @ 45 mls/hr IV .[id number] ANNIE Rx#:[id number] Norepinephrine 8 mg In 136.046 Sodium Chloride 0.9% 250 ml @ 0.03 MCG/KG/MIN 5. 312 mls/hr IV .Q24H ANNIE Rx#:[id number] propofoL 1,000 mg In 376.549 276.283 Empty Bag 1 bag @ 15 MCG/ KG/MIN 8.235 mls/hr IV . Q12H9M ANNIE Rx#:[id number] TPN/PPN 540 90 Mvi, Adult No.4 with Vit 540 90 K 10 ml Trace (Conc-1Ml/ Dose) 1 ml Sodium Chloride 4Meq/ml Vial 56 meq Potassium Acetate 10 meq Calcium Gluconate 1 gm Magnesium Sulfate gm 1 .25 gm Sodium Phosphate 21 mmol In Amino Acids 5 %/Dextrose 20 % 1,000 ml @ 45 mls/hr IV .[id number] [facility] Rx#:[id number] Output: Urine 490 500 40 Stool 900 200 Other: Voiding Method Indwelling Catheter Indwelling Catheter ABP, PAP, CO, CI - Last Documented Arterial Blood Pressure 95/44 - Exam gen: nad neck: trach in place, no bleeding observed cv: rrr pul: 5LNC, non distressed abd: softn, non distended, non tender to palpation, no guarding or rebound tenderness - Labs CBC & Chem 7: 03/18/24 04:30 03/18/24 04:30 Labs: Abnormal Lab Results - Last 24 Hours (Table) 03/17/24 03/18/24 03/18/24 Range/Units 11:15 04:30 04:30 RBC 4.11 L (4.30-5.90) m/uL Hgb 10.4 L (13.0-17.5) gm/dL Hct 34.7 L (39.0-53.0) % MCHC 30.1 L (31.0-37.0) g/dL RDW 16.1 H (11.5-15.5) % ABG pO2 (83-108) mmHg ABG Total CO2 (19-24) mmol/L ABG O2 Saturation (94-97) % Hemoglobin (13.0-17.5) gm/dL Sodium 136 L (137-145) mmol/L Carbon Dioxide 21 L (22-30) mmol/L Creatinine 0.52 L (0.66-1.25) mg/dL Glucose 156 H (74-99) mg/dL POC Glucose (mg/dL) (70-110) mg/dL ALT 77 H (4-49) U/L Fluid Appearance Blood Tinged A (Clear) 03/18/24 03/18/24 03/18/24 Range/Units 04:31 05:04 05:27 RBC (4.30-5.90) m/uL Hgb (13.0-17.5) gm/dL Hct (39.0-53.0) % MCHC (31.0-37.0) g/dL RDW (11.5-15.5) % ABG pO2 166 H (83-108) mmHg ABG Total CO2 27 H (19-24) mmol/L ABG O2 Saturation >100.0 H (94-97) % Hemoglobin 10.3 L (13.0-17.5) gm/dL Sodium (137-145) mmol/L Carbon Dioxide (22-30) mmol/L Creatinine (0.66-1.25) mg/dL Glucose (74-99) mg/dL POC Glucose (mg/dL) 151 H 143 H (70-110) mg/dL ALT (4-49) U/L Fluid Appearance (Clear) 03/18/24 03/18/24 Range/Units 11:28 17:31 RBC (4.30-5.90) m/uL Hgb (13.0-17.5) gm/dL Hct (39.0-53.0) % MCHC (31.0-37.0) g/dL RDW (11.5-15.5) % ABG pO2 (83-108) mmHg ABG Total CO2 (19-24) mmol/L ABG O2 Saturation (94-97) % Hemoglobin (13.0-17.5) gm/dL Sodium (137-145) mmol/L Carbon Dioxide (22-30) mmol/L Creatinine (0.66-1.25) mg/dL Glucose (74-99) mg/dL POC Glucose (mg/dL) 166 H 132 H (70-110) mg/dL ALT (4-49) U/L Fluid Appearance (Clear) Microbiology - Last 24 Hours (Table) 03/17/24 11:15 Gram Stain - Preliminary Bronchoalviolar Lavage - Right Bronchial Washings Culture - Preliminary Pseudomonas aeruginosa Assessment and Plan Assessment: 48 yo male s/p hypoxic respiratory failure requiring tracheostomy s/p tracheostomy creation -wean to trach mask when possible -please contact with any questions [phone]
[2024-03-19 00:14] LABS: Glucose,Whole Blood 126 mg/dL (70-110)
[2024-03-19 05:10] LABS: Glucose,Whole Blood 133 mg/dL (70-110)
[2024-03-19 05:30] LABS: Anisocytosis Slight; Basophils % (A) 0 %; Eosinophils # (A) 0.1 k/uL (0-0.7); Eosinophils % (A) 1 %; HCT 29.2 % (39.0-53.0); Hypochromasia Marked; Lymphocytes # (A) 1.4 k/uL (1.0-4.8); Lymphocytes % (A) 21 %; MCH 25.5 pg (25.0-35.0); MCHC 30.4 g/dL (31.0-37.0); MCV 83.8 fL (80.0-100.0); Mean Platelet Volume 9.2; Monocytes # (A) 0.4 k/uL (0-1.0); Monocytes % (A) 6 %; Neutrophils # (A) 4.7 k/uL (1.3-7.7); Neutrophils % (A) 70 %; Platelet Count 304 k/uL (150-450); Poikilocytosis Slight; RBC 3.49 m/uL (4.30-5.90); RDW 16.1 % (11.5-15.5); WBC 6.7 k/uL (3.8-10.6)
[2024-03-19 05:40] LABS: HGB 8.9 gm/dL (13.0-17.5)
[2024-03-19 05:54] LABS: ALT 59 U/L (4-49); AST 29 U/L (17-59); African American GFR (CKD) >90 (>60 ml/min/1.73 sqM); Albumin 3.1 g/dL (3.5-5.0); Alkaline Phosphatase 96 U/L (38-126); Anion Gap 9 mmol/L; Blood Urea Nitrogen 15 mg/dL (9-20); Calcium 9.1 mg/dL (8.4-10.2); Carbon Dioxide 23 mmol/L (22-30); Chloride 102 mmol/L (98-107); Glucose 129 mg/dL (74-99); Magnesium 1.9 mg/dL (1.6-2.3); Non-African American GFR(CKD) >90 (>60 ml/min/1.73 sqM); Phosphorus 2.9 mg/dL (2.5-4.5); Potassium 3.5 mmol/L (3.5-5.1); Sodium 134 mmol/L (137-145); Total Bilirubin 0.4 mg/dL (0.2-1.3); Total Protein 7.2 g/dL (6.3-8.2)
[2024-03-19 06:17] LABS: ABG HCO3 26 mmol/L (21-25); ABG Oxygen Saturation 99.6 % (94-97); ABG PCO2 39 mmHg (35-45); ABG PH 7.42 (7.35-7.45); ABG PO2 120 mmHg (83-108); ABG TCO2 27 mmol/L (19-24); Allen Test Performed? Yes
--- NOTE | 2024-03-19 07:19 | XR ---
EXAMINATION TYPE: XR chest 1V portable DATE OF EXAM: 03/19/2024 4:57 AM COMPARISON: 03/18/2024 CLINICAL INDICATION: Male, 48 years old with history of Tube placement, TECHNIQUE: XR chest 1V portable view(s) obtained. FINDINGS: The heart size is normal. The pulmonary vasculature is normal. Retrocardiac infiltrate is present. Right lower lobe atelectasis has improved. Endotracheal tube tip is 6.6 cm above the avery. Nasogastric tube transverses the thorax. IMPRESSION: 1. Retrocardiac infiltrate. 2. Lines and catheters discussed above [facility], , 03/19/2024 7:17 AM
[2024-03-19] MEDS: POTASSIUM CHLORIDE ER 20 MEQ TAB.ER PO SCH (08:03)
[2024-03-19] MEDS: MAGNESIUM SULFATE-D5W PMX 1 GM in DEXTROSE/WATER 1 100ML.BAG IVPB ONE (08:07)
[2024-03-19] MEDS: POTASSIUM BICARBONATE/CIT AC 20 MEQ TABLET.EFF NG-TUBE SCH (08:19)
--- NOTE | 2024-03-19 08:40 | P.PN ---
Subjective This is a pleasant 48-year-old male who was recently admitted with hypoxia concerns of pneumonia initially with significant mucous plugging being followed by multiple consultations in the ICU with concerns of sepsis and difficulty weaning requiring tracheostomy. Cultures finalized from the sputum with Pseudomonas and is maintained on antibiotics in the form of Zosyn with infectious disease following. Patient doing well on tracheostomy and planning on ECF possibly in the next few days early next week. Patient is afebrile and will continue antibiotics with the plans for 10 days to 2 weeks on IV antibiotic therapy on discharge. Will discuss further with case management/social work regarding discharge planning. Patient has been moved out of the ICU and remained stable at this time. Recommend aspiration precautions and sitting with the head of the bed elevated 30 to 45 degrees at all times 03/14/2024 Patient is seen in follow-up today with no acute overnight issues noted. Patient is tolerating oral intake and also continued on TPN. Patient does have a PICC line and will be continuing on 10 days to 2 weeks of Zosyn on discharge per ID recommendations. Case management/social work following working on accepting ECF and currently [facility] is reviewing. Patient is afebrile with no reports of increasing shortness of breath and denies chest pain. 03/15/2024 Patient is seen in follow-up today with no acute overnight issues noted patient per nursing staff did have 1 brief episode of blood in the ostomy that was minute although will order stat CBC patient has had no further episodes. Patient is afebrile with no reports of chest pain or worsening shortness of breath tolerating tracheostomy and is continued on diet along with TPN and will continue. Patient continues on IV Zosyn with infectious disease following and will discuss further with case management/social work regarding discharge planning and currently awaiting an accepting ECF. Multiple other facilities have received the patient thus far. Patient will need continued IV antibiotic therapy on discharge for 10 days to 2 weeks. 03/16/2024 Patient is seen in follow-up today and per nursing staff having some issues with swelling and irritation around the tracheostomy site. General surgery following recommending causing the area and continue monitoring closely. Per nursing staff patient was desatting quickly and is currently maintained on trach collar 8. Patient is afebrile denies chest pain or palpitations. Patient is tolerating diet and also maintained on TPN. Patient will continue on IV antibiotics with infectious disease following and does have a PICC line. Awaiting clearance from consultations to discuss discharge planning to ECF. Ca se management following working on accepting ECF. 03/17 Patient today was becoming more hypoxic and oxygen dropped to mid 80s on high 70s while he is on FiO2 of 100%. Getting it through trach collar in place. He was awake alert complaining from breathing difficulty mildly tachypneic while at rest. Complaining from some pain in his right chest. Abdomen is soft and there is big wound in the middle of the abdomen with fecal management system in place. Connected to his abdominal wound Medina catheter in place A team was called. Patient was transferred to the ICU for further management. Labs from today showing WBC 7.2, hemoglobin 11.1. Creatinine within the reference range at 0.45. Glucose controlled. Chest x-ray: Showing no acute pulmonary process. Looks like there is chronic elevation of the right diaphragm. 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 03/18/24 Patient remains in the ICU he is intubated and on mechanical ventilation through the oral cavity. However he was awake this morning and he follows simple commands. Nevertheless patient remains very sick. He is in septic shock requiring pressors with high-dose of Levophed. He is currently covered with Zosyn with bronchoalveolar lavage washing and growing Pseudomonas from 2 days ago. Microorganism is resistant to cefepime. Therefore patient is continued on Zosyn per ID team. Also he is getting TPN and Ringer lactate at 75 mL/h Chest x-ray which I reviewed by myself per radiologist with has atelectasis, I reviewed the chest x-ray by myself. Yesterday we tried to transfer the patient to [facility] regarding his recurrent respiratory distress related to his tracheomalacia but he was denied. Today is holiday and no staff besides vanna has full capacity at the not accepting new patients per Staff. 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 He remains on small dose of Levophed and normal saline and antibiotic of Zosyn Culture results from bronchoalveolar lavage is growing Pseudomonas again. It looks like his infection was not controlled with the Zosyn by itself therefore we recommend adding Levaquin for better coverage however we will defer this decision and antibiotic management to the infectious disease team. We will try to transfer the patient to [facility] per recommendation of pulmonary team for his tracheomalacia with complication. Discussed with staff Active Medications Generic Name Dose Route Start Last Admin Trade Name Freq PRN Reason Stop Dose Admin Albuterol/Ipratropium 3 ml 03/11/24 08:00 03/19/24 07:44 Ipratropium-Albuterol 3 Ml Neb INHALATION 3 ml RT-QID ANNIE Administration Albuterol/Ipratropium 3 ml 03/10/24 20:30 Ipratropium-Albuterol 3 Ml Neb INHALATION RT-Q2H PRN Shortness Of Breath Or Wheezing Budesonide 1 mg 03/12/24 12:45 03/19/24 07:44 Budesonide 1 Mg/2 Ml Nebu INHALATION 1 mg RT-BID ANNIE Administration Chlorhexidine Gluconate 15 ml 03/17/24 21:00 03/19/24 08:08 Chlorhexidine Gluconate 15 Ml Cup MUCOUS MEM 15 ml BID ANNIE Administration Dextrose/Water 25 ml 02/26/24 08:17 Dextrose 50% Syringe 50 Ml IVP PER PROTOCOL PRN Hypoglycemia Protocol Dextrose/Water 50 ml 02/26/24 08:17 Dextrose 50% Syringe 50 Ml IVP PER PROTOCOL PRN Hypoglycemia Protocol Enoxaparin Sodium 80 mg 02/26/24 21:00 03/19/24 08:26 Enoxaparin 80 Mg/0.8 Ml Syringe SQ 80 mg BID@0900,2100 ANNIE Administration Folic Acid 1 mg 03/12/24 12:00 03/18/24 12:55 Folic Acid 1 Mg Tab PO 1 mg DAILY@1200 ANNIE Administration Hydrocortisone Sodium Succinate 50 mg 03/10/24 15:00 03/19/24 08:05 Hydrocortisone Succinate 100 Mg/2 Ml Vial IV 50 mg Q8HR ANNIE Administration Hydromorphone HCl 1 mg 03/18/24 12:20 03/19/24 08:01 Hydromorphone 1 Mg/Ml 1 Ml Syringe IVP 1 mg Q3HR PRN Administration Analgesia Fat Emulsion Intravenous 250 250 mls @ 21 mls/hr 03/09/24 12:00 03/18/24 12:44 ml/ IV Solution IV 21 mls/hr Q72H ANNIE Administration Parenteral Vitamin Supplement 1,049.5 mls @ 45 mls/hr 03/13/24 13:00 03/18/24 11:56 10 ml/ Zinc/Copper/Manganese/ IV 03/19/24 08:50 45 mls/hr Selenium 1 ml/ Sodium Chloride .[id number] ANNIE Administration 56 meq/ Potassium Acetate 10 meq/ Calcium Gluconate 1 gm/ Magnesium Sulfate 1.25 gm/ Sodium Phosphate 21 mmol/ Amino Acids/Dextrose Piperacillin Sod/Tazobactam 100 mls @ 25 mls/hr 03/15/24 16:40 03/19/24 08:07 Sod 3.375 gm/ Sodium Chloride IVPB 25 mls/hr Q8HR ANNIE Administration Protocol Propofol 1,000 mg/ IV Solution 100 mls @ 8.235 mls/hr 03/17/24 11:15 03/19/24 07:00 IV 55 mcg/kg/min .Q12H9M ANNIE 30.195 mls/hr Administration Protocol 15 MCG/KG/MIN Norepinephrine Bitartrate 8 mg 258 mls @ 5.312 mls/hr 03/17/24 12:30 03/18/24 22:00 / Sodium Chloride IV 0.02 mcg/kg/min .Q24H ANNIE 3.541 mls/hr Titration Protocol 0.03 MCG/KG/MIN Lactated Ringer's 1,000 mls @ 75 mls/hr 03/17/24 11:00 03/19/24 00:18 Lactated Ringers IV 75 mls/hr .[id number] ANNIE Administration Magnesium Sulfate/Dextrose 1 100 mls @ 100 mls/hr 03/19/24 08:00 03/19/24 08:07 gm/ IV Solution IVPB 03/19/24 08:59 100 mls/hr ONCE ONE Administration Protocol Parenteral Vitamin Supplement 1,060 mls @ 45 mls/hr 03/19/24 11:15 10 ml/ Zinc/Copper/Manganese/ IV Selenium 1 ml/ Sodium Chloride .[id number] ANNIE 76 meq/ Potassium Acetate 20 meq/ Calcium Gluconate 1 gm/ Magnesium Sulfate 1.5 gm/ Sodium Phosphate 21 mmol/ Amino Acids/Dextrose Insulin Aspart 0 unit 02/26/24 12:00 03/19/24 06:42 Insulin Aspart (Novolog) 100 Unit/Ml Vial SQ Not Given Q6H [facility] Protocol Miscellaneous Information 1 each 02/27/24 12:26 Phosphorus Replacement Protoco 1 Each Misc MISCELLANE DAILY PRN Per Protocol Protocol Miscellaneous Information 1 each 02/27/24 12:28 Potassium Replacement Protocol 1 Each Misc MISCELLANE DAILY PRN Per Protocol Protocol Miscellaneous Information 1 each 03/10/24 06:32 Magnesium Replacement Protocol 1 Each Misc MISCELLANE DAILY PRN Per Protocol Protocol Multivitamins 1 each 03/12/24 12:00 03/18/24 13:09 Multivitamins, Thera 1 Each Tab PO Not Given DAILY@1200 [facility] Naloxone HCl 0.2 mg 02/25/24 17:20 02/26/24 02:02 Naloxone 0.4 Mg/Ml 1 Ml Vial IV 0.2 mg Q2M PRN Administration Opioid Reversal Pantoprazole Sodium 40 mg 02/26/24 09:00 03/19/24 08:04 Pantoprazole 40 Mg/10 Ml Vial IVP 40 mg DAILY [facility] Administration Potassium Bicarbonate 20 meq 03/19/24 09:00 03/19/24 08:19 Potassium Bicarbonate/Cit Ac 20 Meq Tablet.Eff NG-TUBE 03/19/24 10:01 20 meq Q1HR [facility] Administration Protocol Potassium Chloride 20 meq 03/19/24 08:00 03/19/24 08:08 Potassium Chloride Er 20 Meq Tab.Er PO 03/19/24 09:01 Not Given Q1HR [facility] Protocol Thiamine HCl 100 mg 03/11/24 17:30 03/19/24 08:08 Thiamine 100 Mg Tab PO 100 mg BID-W/MEALS ANNIE Administration Objective - Vital Signs Vital signs: Vital Signs Temp 97.7 F 03/19/24 04:00 Pulse 58 L 03/19/24 08:15 Resp 28 H 03/19/24 08:15 BP 117/58 03/18/24 17:15 Pulse Ox 97 03/19/24 08:15 FiO2 40 03/19/24 08:15 Intake & Output 03/18/24 03/19/24 03/19/24 18:59 06:59 18:59 Intake Total 2664.829 1465.985 436.52 Output Total 1400 765 50 Balance 1264.829 700.985 386.52 Weight 94.9 kg Intake: IV 1036 936 256 3cc/hr [place] 36 36 6 Lactated Ringers 1,000 ml 900 900 150 @ 75 mls/hr IV .[id number] [facility] Rx#:[id number] Piperacillin-Tazobactam 3 100 100 .375 gm In Sodium Chloride 0.9% 100 ml @ 25 mls/hr IVPB Q8HR [facility] Rx# :[id number] Intake, IV Titration 1538.829 529.985 180.52 Amount Fat Emulsion 20% 250 ml 126 126 In Empty Bag 1 bag @ 21 mls/hr IV Q72H ANNIE Rx#: [id number] Magnesium Sulfate-D5w Pmx 100 1 gm In Dextrose/Water 1 100ml.bag @ 100 mls/hr IVPB ONCE ONE Rx#: [id number] Mvi, Adult No.4 with Vit 1000.5 K 10 ml Trace (Conc-1Ml/ Dose) 1 ml Sodium Chloride 4Meq/ml Vial 56 meq Potassium Acetate 10 meq Calcium Gluconate 1 gm Magnesium Sulfate gm 1 .25 gm Sodium Phosphate 21 mmol In Amino Acids 5 %/Dextrose 20 % 1,000 ml @ 45 mls/hr IV .[id number] [facility] Rx#:[id number] Norepinephrine 8 mg In 136.046 3.985 Sodium Chloride 0.9% 250 ml @ 0.03 MCG/KG/MIN 5. 312 mls/hr IV .Q24H [facility] Rx#:[id number] Piperacillin-Tazobactam 3 100 .375 gm In Sodium Chloride 0.9% 100 ml @ 25 mls/hr IVPB Q8HR [facility] Rx# :[id number] propofoL 1,000 mg In 276.283 300 80.52 Empty Bag 1 bag @ 15 MCG/ KG/MIN 8.235 mls/hr IV . Q12H9M [facility] Rx#:[id number] TPN/PPN 90 Mvi, Adult No.4 with Vit 90 K 10 ml Trace (Conc-1Ml/ Dose) 1 ml Sodium Chloride 4Meq/ml Vial 56 meq Potassium Acetate 10 meq Calcium Gluconate 1 gm Magnesium Sulfate gm 1 .25 gm Sodium Phosphate 21 mmol In Amino Acids 5 %/Dextrose 20 % 1,000 ml @ 45 mls/hr IV .[id number] [facility] Rx#:[id number] Output: Urine 500 565 50 Stool 900 200 Other: Voiding Method Indwelling Catheter Indwelling Catheter ABP, PAP, CO, CI - Last Documented Arterial Blood Pressure 105/45 - Exam -GENERAL: The patient is currently intubated and on mechanical ventilation HEENT: Pupils are round and equally reacting to light. EOMI. No scleral icterus. No conjunctival pallor. Normocephalic, atraumatic. No pharyngeal erythema. No thyromegaly. CARDIOVASCULAR: S1 and S2 present. No murmurs, rubs, or gallops. -PULMONARY: Chest is clear to auscultation, no wheezing , no crackles. Decreased breath sounds on both sides ABDOMEN: Soft, nontender, nondistended, normoactive bowel sounds. No palpable organomegaly. Central abdominal wound with similar to colostomy bag in place connected to fecal management system MUSCULOSKELETAL: No joint swelling or deformity. EXTREMITIES: No cyanosis, clubbing, or pedal edema. NEUROLOGICAL: Gross neurological examination did not reveal any focal deficits. SKIN: No rashes. no petechiae. - Labs CBC & Chem 7: 03/19/24 06:00 03/19/24 06:00 Labs: Abnormal Lab Results - Last 24 Hours (Table) 03/18/24 03/18/24 03/19/24 Range/Units 11:28 17:31 00:10 RBC (4.30-5.90) m/uL Hgb (13.0-17.5) gm/dL Hct (39.0-53.0) % MCHC (31.0-37.0) g/dL RDW (11.5-15.5) % ABG pO2 (83-108) mmHg ABG HCO3 (21-25) mmol/L ABG Total CO2 (19-24) mmol/L ABG O2 Saturation (94-97) % Hemoglobin (13.0-17.5) gm/dL Sodium (137-145) mmol/L Creatinine (0.66-1.25) mg/dL Glucose (74-99) mg/dL POC Glucose (mg/dL) 166 H 132 H 126 H (70-110) mg/dL ALT (4-49) U/L Albumin (3.5-5.0) g/dL 03/19/24 03/19/24 03/19/24 Range/Units 05:08 06:00 06:00 RBC 3.49 L (4.30-5.90) m/uL Hgb 8.9 L D (13.0-17.5) gm/dL Hct 29.2 L (39.0-53.0) % MCHC 30.4 L (31.0-37.0) g/dL RDW 16.1 H (11.5-15.5) % ABG pO2 (83-108) mmHg ABG HCO3 (21-25) mmol/L ABG Total CO2 (19-24) mmol/L ABG O2 Saturation (94-97) % Hemoglobin (13.0-17.5) gm/dL Sodium 134 L (137-145) mmol/L Creatinine 0.48 L (0.66-1.25) mg/dL Glucose 129 H (74-99) mg/dL POC Glucose (mg/dL) 133 H (70-110) mg/dL ALT 59 H (4-49) U/L Albumin 3.1 L (3.5-5.0) g/dL 03/19/24 Range/Units 06:13 RBC (4.30-5.90) m/uL Hgb (13.0-17.5) gm/dL Hct (39.0-53.0) % MCHC (31.0-37.0) g/dL RDW (11.5-15.5) % ABG pO2 120 H (83-108) mmHg ABG HCO3 26 H (21-25) mmol/L ABG Total CO2 27 H (19-24) mmol/L ABG O2 Saturation 99.6 H (94-97) % Hemoglobin 8.6 L (13.0-17.5) gm/dL Sodium (137-145) mmol/L Creatinine (0.66-1.25) mg/dL Glucose (74-99) mg/dL POC Glucose (mg/dL) (70-110) mg/dL ALT (4-49) U/L Albumin (3.5-5.0) g/dL Microbiology - Last 24 Hours (Table) 03/17/24 11:15 Acid Fast Bacilli Smear - Preliminary Bronchoalviolar Lavage - Right 03/17/24 11:15 Gram Stain - Preliminary Bronchoalviolar Lavage - Right Bronchial Washings Culture - Preliminary Pseudomonas aeruginosa Assessment and Plan Assessment: Pseudomonas pneumonia with sepsis, and acute hypoxic respiratory failure with right lower lobe pneumonia, present on admission, status post mechanical ventilation requiring tracheostomy, culture showing Pseudomonas Septic shock secondary to above Acute hypoxic respiratory failure secondary to above requiring intubation and mechanical ventilation on 03/17 Status post tracheostomy Recurrent mucous plugging 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 ID team on the case. Patient may benefit also from adding another antibiotics like levofloxacin as it is sensitive as well however will de rick antibiotic management to infectious disease team Continue with TPN Continue with IV hydrocortisone 50 mg 3 times daily Continue with IV fluid Ringer lactate Continue with Zosyn Continue therapeutic dose of Lovenox 80 mg twice daily. Pulmonary team consulted on the case Infectious disease and general surgery team consult Labs and medication were reviewed.. Continue same treatment. Continue with symptomatic treatment. Resume home medication. Monitor labs and vitals. DVT and GI prophylaxis. Further recommendations as per clinical course of the patient DVT prophylaxis: Subcutaneous heparin GI Prophylaxis: Protonix PT/OT: Pending Prognosis is guarded Lovenox
[2024-03-19 10:08] LABS: Nucleated Cells, Body Fluid 3000 /UL
[2024-03-19 11:25] LABS: Glucose,Whole Blood 125 mg/dL (70-110)
--- NOTE | 2024-03-19 11:52 | P.PN ---
Subjective Principal diagnosis: Hypoxia. Patient is a 48-year-old male with complex past medical history including CVA, previous DVTs, right BKA, cardiac arrest in 2021, Crohn's disease, enterocutaneous fistulas, previous bowel resection, ventilator dependent respiratory failure, previous tracheostomy and reversal. Recently was admitted 12/13/2023 through 12/25/2023 for pneumonia and respiratory failure due to mucous plugging. He was intubated and placed on mechanical ventilator for approximately 6 days. He did have a bronchoscopy with BAL, microbiology positive for haemophilus influenza. Eventually, discharged home, and returned 01/02/24 for GIB from his ostomy. Was reintubated and did spend some time on the ventilator for reccurent pneumonia and mucous plugging. During this time, had multiple bronchoscopies with BAL, once on 12/31/2023 and again on 01/03/2024, isolated organisms including MRSA and Pseudomonas. Patient was eventually discharged back home on 01/16/2024. More recently, patient had an ER visit for increased work of breathing on February 22, and the patient was sent home. Returned for similar symptoms yesterday afternoon. Chest x-ray done on admission showing cardiomegaly with pulmonary vascular congestion and questionable right lower lobe infiltrate or effusion. CBC: WBC count 11.2, hemoglobin 10.5, hematocrit 37.3, platelets 315. CMP: Sodium 138, potassium 4.8, chloride 97, serum bicarb 39, BUN 23, creatinine 0.45, glucose 103. Lactic 1. LFTs unremarkable. Troponin less than 0.012. I am evaluating this patient emergency department, he is currently unresponsive, to even painful stimuli. He is on a 15 L nonrebreather. SpO2 88%. Diminished breath sounds on the right Will place this patient on BiPAP with initial settings 16/5 FiO2 to be titrated accordingly. Will get a stat ABG. We will repeat chest x-ray. I did talk to the patient's son, Alan, he is adamant that the patient remain a full code, would want the patient intubated if necessary. On reassessment in the emergency department, patient remained on BiPAP with settings 16/5 100%. He remains unresponsive to painful stimuli. Now only achieving tidal volumes ranging from 100 to 200 cc. Unfortunately, we were not able to to get an initial blood gas. I recommended that the patient be moved to the trauma bay and intubated by the [employer]. Follow-up chest x-ray showing the endotracheal tube in appropriate position above the avery. Orogastric tube coursing below the diaphragm. Initial ventilator settings include assist- control, respiratory rate 20, tidal volume 500, FiO2 100%, PEEP of 5. Currently, patient is fairly asynchronous with the ventilator and he is biting the tube. There are copious amounts of blood-tinged sputum in the ET tube. Elevated peak airway pressures of 45. Static pressure 32. The nurses are working on appropriately sedating the patient with propofol. Postintubation, the patie nt did become hypotensive, currently receiving his second liter of normal saline. Will also start the patient on norepinephrine to maintain a MAP of greater than 65 mmHg. I did insert a left femoral arterial line. Following this, we did obtain an ABG showing profound hypercapnic and hypoxic respiratory failure. PaO2 of 89, pCO2 98, pH of 7.11. Appropriate ventilator adjustments were made including increasing the rate to 26 and PEEP can be increased to 8. Patient may eventually need repeat bronchoscopy with BAL. Case will be discussed with Dr. Munoz. Patient is still waiting for a bed in the intensive care unit. I did call and update patient's son Alan about his change in clinical condition. On 03/07/2024, the patient is awake and alert and the patient is currently off propofol. The patient is still on the mechanical ventilator assist-control mode rate of 16, tidal volume of 500, FiO2 50% with a PEEP of 6. Calm and comfortable and breathing comfortable. No significant secretions through the tracheostomy tube. Remains on IV Zosyn. He does have pseudomonal pneumonia for which she is on IV Zosyn based on antibiotic sensitivities. Remains on TPN and this was increased up to 60 cc an hour. Remains on anticoagulation with Lovenox 80 mg subcu every 12 hours. Ileostomy is still active and the patient is producing approximately 1000 cc of gastric output over the past 8 hours. Fluid balance -600 cc over the past 24 hours. White cell count is at 4.9 with a hemoglobin 8.8 and a platelet count of 255. BUN is 10 with a creatinine of 0.4 and the sodium is at 137 and a potassium level is at 4.1. Awake and alert and communicating. Profound weakness of lower extremities along with significant muscle atrophy. On 03/08/2024, the patient is on a T-piece at 40% FiO2. No significant respiratory secretions., Comfortable and awake and communicating. He is asking for some oral intake of food. No respiratory difficulties. Remains on TPN at rate of 60 cc an hour. Ileostomy output has been 1500 over the past 8 hours. Fluid balance is 0. Remains on low-dose norepinephrine 0.04 mcg/kg/min. The white cell count of 5 with a hemoglobin 8.3 and a platelet count of 236. BUN is 8 with a creatinine of 0.37 and sodium levels at 137. He remains on IV Zosyn regarding his pseudomonal pneumonia. Chest x-ray findings are also stable. Patient was evaluated today on 03/09/2024, patient remains on T-piece, at 35% FiO2, seems to be fairly comfortable, does not seem to be in any distress, he is awake, communicating, does not seem to be in distress, still on TPN, 60 mL/h, patient is receiving treatment for pseudomonal infection/pneumonia and he is on Zosyn. Patient is to have a swallow evaluation today and possibly allow oral feeding. His tracheostomy was placed on 03/05, patient is still requiring low- dose norepinephrine at 0.01 mcg/kg/min. Basic metabolic profile is normal, bicarb is 37 BUN is 9 creatinine 0.41 chest x-ray continues show interstitial opacities with slight improvement specially in the right and left basilar areas Patient was evaluated today on 03/10/2024 remains in the ICU remains on T-piece at 28% FiO2 patient passed his swallow evaluation yesterday and now he is allowed to have oral feedings, in the meantime he is on TPN at 85 cc/h he is off norepinephrine since 5 AM this morning. Remains on Zosyn for his pseudomonal infection cough seems to be deflated for him to swallow and tolerate oral diet. Not much has happened in the last 24 hours otherwise. Labs were reviewed WBC count is 4.3 hemoglobin 9.3 basic metabolic profile is normal renal profile is normal Seen today on 03/12/2024, patient is doing well, he is on the medical floor, not in any distress, on 28% trach collar, remains on antibiotics, he is not requiring any pressors, hemodynamically stable, patient has a speaking valve and able to communicate. Denies any specific symptoms.WBC count is 6.2 hemoglobin is 10.1 electrolytes are normal renal profile is normal Patient was evaluated today on 03/13/2024, remains on trach collar, does not seem to be in any distress, WBC count 7.3 hemoglobin 9.3 electrolytes are normal potassium is a bit high at 5.3 renal profile is normal, overall the patient is doing great. Seen today on 03/14/2024, patient is doing well, being fed by his mother at bedside, patient is asymptomatic otherwise. Trach collar remains in place, patient is tolerating trach collar well, hardly any cough no wheezing no shortness of breath no chest pain no fever no chills no hemoptysis.Labs from today including basic metabolic profile noted and basically unremarkable on 03/15/2024, patient is basically about the same. Patient is laying in bed, being fed by his mother, tolerating feeding quite well, does not seem to be in any distress, continues to have trach collar in place, overall the patient is doing great, and eventually needs to be discharged home.WBC count 6.5 hemoglobin 10.2 basic metabolic profile is normal and renal profile is normal Progress note dated March 16, 2024. 48-year-old male who is now been here in the hospital for 20 days. The patient is seen today in room 367. The patient is on 35% trach collar. The patient is receiving IV Zosyn, and TPN at 45 cc an hour. The patient is laying nearly flat in bed. In no distress whatsoever. Current laboratory data includes a sodium 137, potassium 4.4, chlorides 103, CO2 23, BUN 22, creatinine 0.46. Glucose is 128. Calcium 10.1, phosphorus 3.0, magnesium 1.9. Bronchoscopy, with BAL, on March 02, revealed evidence of Pseudomonas aeruginosa, which was also discovered in his sputum, on February 25. Progress note dated March 17, 2024. 48-year-old male who was seen today in room 256. The patient was on the medical floor, and a rapid response was called on this patient, for respiratory distress. The respiratory therapist on the floor, could not ventilate the patient, despite using a [id number] device, and his saturations were in the 80s, so the patient was moved to the intensive care unit, for further monitoring and management. There, with the aid of the glide scope, the patient was orally intubated, as a tracheostomy tube, was removed. The patient was connected to the ventilator. He was sedated with propofol, and received some Nimbex for paralysis. Next, the patient underwent bronchoscopy, to evaluate the respiratory tract. There were thick secretions noted throughout, we did a BAL, of the right lung. 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 In addition to intubation, and bronchoscopy, the patient had a central line placed and a arterial line placed. Current labs include a white count 7.2, hemoglobin 9.1, hematocrit 38.8, platelet count 3 years 70,000. Blood gases show pO2 108, pCO2 of 54, pH is 7.30. The rate on the ventilator was increased to 28, and the PEEP was increased to 8, with orders to titrate the FiO2 down. Sodium 136, potassium 4.8, chlorides 103, CO2 24, BUN 21, creatinine 0.45. Chest x-ray shows endotracheal tube to be about 5 cm above the tracheal avery. There is a left lower lobe infiltrate. Progress note dated March 18, 2024. 48-year-old male who is seen today in room 256. Patient remains intubated, vent settings AC, rate 28, tidal volume 450, PEEP 8, FiO2 40 %. Blood gases show p.o. 266, pCO2 of 43, and pH 7.38. Sodium 136, potassium 4, chloride 103, CO2 21, BUN 20, creatinine 0.52. Chest x-ray shows mild atelectasis developing in the right diaphragm and endotracheal tube tip is 6.4 cm above the avery. Left central venous catheter tip is in the distal superior vena cava proximal right atrium. NG tube transverses the thorax. Progress note dated March 19, 2024. 48-year-old male who is seen in room 256. Overnight patient's occlusive bandaging around previous tracheostomy site came loose during his bath and copious amounts of secretions were seen coming out. Patient remains intubated, vent settings AC, respiratory rate 28, tidal volume 450, FiO2 30%, and PEEP 8. Blood gases show O2 of 126, CO2 39, and pH 7.42. CBC: WBC 6.7, hemoglobin 8.9, hematocrit 29.2, platelet count 304. CMP: Sodium 134, potassium 3.5, chloride 102, BUN 15, creatinine 0.48, AST 29, and ALT 59. Chest x-ray shows retrocardiac infiltrate, endotracheal tube tip is 6.6 cm above the avery. NG tube transverses the thorax. ROS: Cannot be assessed Pertinent imaging and labs reviewed. Physical examination: Sedated, currently paralyzed, with an orally placed endotracheal tube. Tracheostomy tube has been removed. HEENT examination is grossly unremarkable. Mucous membranes are moist. No oral lesions. Neck supple. Full range of motion. No adenopathy thyromegaly or neck vein distention. Cardiovascular examination reveals regular rhythm rate. S1-S2 normal. No S3 or S4. No discernible murmur noted. Lungs reveal coarse bilateral rhonchi. Breath sounds are equal. No wheezes or crackles. Abdomen soft, nontender, with functioning ileostomy. The patient also has an enterocutaneous fistula over the anterior abdominal wall. Extremities are intact. No cyanosis clubbing or edema. Right BKA. Skin is without rash or lesion. Neurologic examination is unable to be evaluated at this time. Assessment: Acute respiratory failure, with inability to oxygenate or ventilate this patient, status post oral placement of an endotracheal tube, with removal of the tracheostomy tube, March 17, 2024. Acute hypoxemic and hypercapnic respiratory failure, requiring intubation and mechanical ventilation on February 26, 2024. S/P tracheostomy on March 05, 2024. Pseudomonas aeruginosa pneumonia. 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 Sepsis/septic shock, secondary to Pseudomonas pneumonia. Crohn's disease, status post bowel perforation, colectomy, and diverting ileostomy. TPN for nutritional support. Profound electrolyte imbalance. Tracheobronchomalacia. History of DVT. History of CVA/TIA, with residual left-sided weakness. Right BKA. History of asystole, 2021. Plan: Plan dated March 16, 2024. The patient was seen today in room 367. He is currently on 35% trach collar. He is getting TPN at 45 cc an hour. For his Pseudomonas infection, he continues on Zosyn. Labs, x-rays, and all medications are reviewed. The patient had a repeat tracheostomy performed on this admission. Apparently he had developed some tracheal stenosis from his previous tracheostomy. We are looking back to see whether or not we can identify whether or not there was some sort of defect or abnormality or tracheal flap noted on previous bronchoscopy. Prognosis is guarded. Plan dated March 17, 2024. The patient was transferred to the intensive care unit. There, we could not ventilate or oxygenate the patient, it was very difficult to bag the patient. Hence, the patient was orally intubated, using the glide scope. #8 endotracheal tube was placed. In addition, the tracheostomy tube was removed. Central line and arterial line were placed. The patient was sedated with propofol and paralyzed with Nimbex. Labs, x-rays, medications are reviewed. Because of the patient's tracheal stenosis, I believe the patient would best served to be transferred to [facility], or a similar institution. Additional recommendations and suggestions are forthcoming. Labs, x-rays, and medications are reviewed. We did notify the primary service of our desire to transfer this patient. Plan dated March 18, 2024. The patient was seen today in the intensive care unit. On chest x-ray endotracheal tube seen 6.4 cm above the avery and RT moved ET tube closer so that it would be within 3 to 4 cm above the avery. Primary team has been notified of our desire to transfer this patient due to the high complexity of his case and tracheal stenosis. Patient still awaiting bed at an accepting hospital. Remains on LR 75 cc/h, Zosyn 100 mL IVPB Q8 HR, propofol 1000 Mg IV 15 mcg/kg/min. Additional recommendations and suggestions are forthcoming. Labs, x-rays, and medications are reviewed. Prognosis is guarded. Plan dated March 19, 2024. Patient seen today in the intensive care unit. On chest x-ray endotracheal tube seen 6.6 cm above the avery and RT moved to ET tube closer so that it would be within 3 to 4 cm above the avery. Patient's oxygen level on ABG continues to remain high, adjusted FiO2 decreased from 40% to 30% this morning. Patient s till pending bed at accepting hospital for transfer. Remains on LR 75 cc/h, Zosyn 100 mL IVPB Q8 HR (day 5), propofol 1000 mg IV 15 mcg/kg/min, tpn 30, levo 1.8 mcg/mg. Additional recommendations and suggestions are forthcoming. Labs, x-rays, and medications are reviewed. Prognosis is guarded. Objective - Vital Signs Vital signs: Vital Signs Temp 97.7 F 03/19/24 04:00 Pulse 52 L 03/19/24 07:15 Resp 28 H 03/19/24 07:15 BP 117/58 03/18/24 17:15 Pulse Ox 99 03/19/24 07:15 FiO2 40 03/19/24 04:16 Intake & Output 03/18/24 03/19/24 03/19/24 18:59 06:59 18:59 Intake Total 2664.829 1465.985 158.52 Output Total 1400 765 30 Balance 1264.829 700.985 128.52 Weight 94.9 kg Intake: IV 1036 936 78 3cc/hr Lorrie 36 36 3 Lactated Ringers 1,000 ml 900 900 75 @ 75 mls/hr IV .[id number] ANNIE Rx#:[id number] Piperacillin-Tazobactam 3 100 .375 gm In Sodium Chloride 0.9% 100 ml @ 25 mls/hr IVPB Q8HR ANNIE Rx# :[id number] Intake, IV Titration 1538.829 529.985 80.52 Amount Fat Emulsion 20% 250 ml 126 126 In Empty Bag 1 bag @ 21 mls/hr IV Q72H ANNIE Rx#: [id number] Mvi, Adult No.4 with Vit 1000.5 K 10 ml Trace (Conc-1Ml/ Dose) 1 ml Sodium Chloride 4Meq/ml Vial 56 meq Potassium Acetate 10 meq Calcium Gluconate 1 gm Magnesium Sulfate gm 1 .25 gm Sodium Phosphate 21 mmol In Amino Acids 5 %/Dextrose 20 % 1,000 ml @ 45 mls/hr IV .[id number] ANNIE Rx#:[id number] Norepinephrine 8 mg In 136.046 3.985 Sodium Chloride 0.9% 250 ml @ 0.03 MCG/KG/MIN 5. 312 mls/hr IV .Q24H ANNIE Rx#:[id number] Piperacillin-Tazobactam 3 100 .375 gm In Sodium Chloride 0.9% 100 ml @ 25 mls/hr IVPB Q8HR ANNIE Rx# :[id number] propofoL 1,000 mg In 276.283 300 80.52 Empty Bag 1 bag @ 15 MCG/ KG/MIN 8.235 mls/hr IV . [id number] ANNIE Rx#:[id number] TPN/PPN 90 Mvi, Adult No.4 with Vit 90 K 10 ml Trace (Conc-1Ml/ Dose) 1 ml Sodium Chloride 4Meq/ml Vial 56 meq Potassium Acetate 10 meq Calcium Gluconate 1 gm Magnesium Sulfate gm 1 .25 gm Sodium Phosphate 21 mmol In Amino Acids 5 %/Dextrose 20 % 1,000 ml @ 45 mls/hr IV .[id number] [facility] Rx#:[id number] Output: Urine 500 565 30 Stool 900 200 Other: Voiding Method Indwelling Catheter Indwelling Catheter ABP, PAP, CO, CI - Last Documented Arterial Blood Pressure 108/43 - Labs CBC & Chem 7: 03/19/24 06:00 03/19/24 06:00 Labs: Abnormal Lab Results - Last 24 Hours (Table) 03/18/24 03/18/24 03/19/24 Range/Units 11:28 17:31 00:10 RBC (4.30-5.90) m/uL Hgb (13.0-17.5) gm/dL Hct (39.0-53.0) % MCHC (31.0-37.0) g/dL RDW (11.5-15.5) % ABG pO2 (83-108) mmHg ABG HCO3 (21-25) mmol/L ABG Total CO2 (19-24) mmol/L ABG O2 Saturation (94-97) % Hemoglobin (13.0-17.5) gm/dL Sodium (137-145) mmol/L Creatinine (0.66-1.25) mg/dL Glucose (74-99) mg/dL POC Glucose (mg/dL) 166 H 132 H 126 H (70-110) mg/dL ALT (4-49) U/L Albumin (3.5-5.0) g/dL 03/19/24 03/19/24 03/19/24 Range/Units 05:08 06:00 06:00 RBC 3.49 L (4.30-5.90) m/uL Hgb 8.9 L D (13.0-17.5) gm/dL Hct 29.2 L (39.0-53.0) % MCHC 30.4 L (31.0-37.0) g/dL RDW 16.1 H (11.5-15.5) % ABG pO2 (83-108) mmHg ABG HCO3 (21-25) mmol/L ABG Total CO2 (19-24) mmol/L ABG O2 Saturation (94-97) % Hemoglobin (13.0-17.5) gm/dL Sodium 134 L (137-145) mmol/L Creatinine 0.48 L (0.66-1.25) mg/dL Glucose 129 H (74-99) mg/dL POC Glucose (mg/dL) 133 H (70-110) mg/dL ALT 59 H (4-49) U/L Albumin 3.1 L (3.5-5.0) g/dL 03/19/24 Range/Units 06:13 RBC (4.30-5.90) m/uL Hgb (13.0-17.5) gm/dL Hct (39.0-53.0) % MCHC (31.0-37.0) g/dL RDW (11.5-15.5) % ABG pO2 120 H (83-108) mmHg ABG HCO3 26 H (21-25) mmol/L ABG Total CO2 27 H (19-24) mmol/L ABG O2 Saturation 99.6 H (94-97) % Hemoglobin 8.6 L (13.0-17.5) gm/dL Sodium (137-145) mmol/L Creatinine (0.66-1.25) mg/dL Glucose (74-99) mg/dL POC Glucose (mg/dL) (70-110) mg/dL ALT (4-49) U/L Albumin (3.5-5.0) g/dL Microbiology - Last 24 Hours (Table) 03/17/24 11:15 Acid Fast Bacilli Smear - Preliminary Bronchoalviolar Lavage - Right 03/17/24 11:15 Gram Stain - Preliminary Bronchoalviolar Lavage - Right Bronchial Washings Culture - Preliminary Pseudomonas aeruginosa
[2024-03-19] MEDS: MVI, ADULT NO.4 WITH VIT K 10 ML, TRACE (CONC-1ML/DOSE) 1 ML, SODIUM CHLORIDE 4MEQ/ML V... IV SCH (12:19)
[2024-03-19 12:24] LABS: Glucose,Whole Blood 123 mg/dL (70-110)
--- NOTE | 2024-03-19 14:05 | P.PN ---
Subjective Progress Note Date: 03/19/24 SURGICAL PROGRESS NOTE CHIEF COMPLAINT: Respiratory failure HISTORY OF PRESENT ILLNESS: Patient returned to the ICU on 03/17/2024 due to respiratory distress. Patient had to be reintubated and tracheostomy tube was removed at that time. Patient currently in the ICU and is intubated. Due to patient's recurrent respiratory failure they are working on transferring patient to a tertiary care center for trach revision. PHYSICAL EXAM: VITAL SIGNS: Reviewed. GENERAL: No acute distress HEENT: Prior tracheostomy site covered with gauze and compression dressing ASSESSMENT: 1. Acute hypoxic respiratory failure. Patient status post removal of tracheostomy tube March 17, 2024 and reintubated. 2. History of tracheal stenosis PLAN: -Patient awaiting transfer to a tertiary care facility for trach revision -Continue ICU management and supportive care Physician Photograph Tinter note has been reviewed by physician. Signing provider agrees with the documented findings, assessment, and plan of care. Objective - Vital Signs Vital signs: Vital Signs Temp 98.0 F 03/19/24 12:15 Pulse 80 03/19/24 12:15 Resp 28 H 03/19/24 12:15 BP 117/58 03/18/24 17:15 Pulse Ox 97 03/19/24 12:15 FiO2 30 03/19/24 12:15 Intake & Output 03/18/24 03/19/24 03/19/24 18:59 06:59 18:59 Intake Total 2664.829 1465.985 973.143 Output Total 7650 354 0715 Balance 1264.829 700.985 -221.857 Weight 94.9 kg Intake: IV 1036 936 646 3cc/hr Lorrie 36 36 21 Lactated Ringers 1,000 ml 900 900 525 @ 75 mls/hr IV .[id number] [facility] Rx#:[id number] Piperacillin-Tazobactam 3 100 100 .375 gm In Sodium Chloride 0.9% 100 ml @ 25 mls/hr IVPB Q8HR [facility] Rx# :[id number] Intake, IV Titration 1538.829 529.985 327.143 Amount Fat Emulsion 20% 250 ml 126 126 In Empty Bag 1 bag @ 21 mls/hr IV Q72H [facility] Rx#: [id number] Magnesium Sulfate-D5w Pmx 100 1 gm In Dextrose/Water 1 100ml.bag @ 100 mls/hr IVPB ONCE ONE Rx#: [id number] Mvi, Adult No.4 with Vit 1000.5 K 10 ml Trace (Conc-1Ml/ Dose) 1 ml Sodium Chloride 4Meq/ml Vial 56 meq Potassium Acetate 10 meq Calcium Gluconate 1 gm Magnesium Sulfate gm 1 .25 gm Sodium Phosphate 21 mmol In Amino Acids 5 %/Dextrose 20 % 1,000 ml @ 45 mls/hr IV .[id number] [facility] Rx#:[id number] Norepinephrine 8 mg In 136.046 3.985 46.623 Sodium Chloride 0.9% 250 ml @ 0.03 MCG/KG/MIN 5. 312 mls/hr IV .Q24H [facility] Rx#:[id number] Piperacillin-Tazobactam 3 100 .375 gm In Sodium Chloride 0.9% 100 ml @ 25 mls/hr IVPB Q8HR [facility] Rx# :[id number] propofoL 1,000 mg In 276.283 300 180.52 Empty Bag 1 bag @ 15 MCG/ KG/MIN 8.235 mls/hr IV . Q12H9M [facility] Rx#:[id number] TPN/PPN 90 Mvi, Adult No.4 with Vit 90 K 10 ml Trace (Conc-1Ml/ Dose) 1 ml Sodium Chloride 4Meq/ml Vial 56 meq Potassium Acetate 10 meq Calcium Gluconate 1 gm Magnesium Sulfate gm 1 .25 gm Sodium Phosphate 21 mmol In Amino Acids 5 %/Dextrose 20 % 1,000 ml @ 45 mls/hr IV .[id number] [facility] Rx#:[id number] Output: Urine 500 565 245 Stool 900 200 950 Other: Voiding Method Indwelling Catheter Indwelling Catheter Indwelling Catheter ABP, PAP, CO, CI - Last Documented Arterial Blood Pressure 102/61 - Labs CBC & Chem 7: 03/19/24 06:00 03/19/24 06:00 Labs: Abnormal Lab Results - Last 24 Hours (Table) 03/17/24 03/18/24 03/19/24 Range/Units 11:15 17:31 00:10 RBC (4.30-5.90) m/uL Hgb (13.0-17.5) gm/dL Hct (39.0-53.0) % MCHC (31.0-37.0) g/dL RDW (11.5-15.5) % ABG pO2 (83-108) mmHg ABG HCO3 (21-25) mmol/L ABG Total CO2 (19-24) mmol/L ABG O2 Saturation (94-97) % Hemoglobin (13.0-17.5) gm/dL Sodium (137-145) mmol/L Creatinine (0.66-1.25) mg/dL Glucose (74-99) mg/dL POC Glucose (mg/dL) 132 H 126 H (70-110) mg/dL ALT (4-49) U/L Albumin (3.5-5.0) g/dL Triglycerides (0.00-149.00) mg/dL Fluid Appearance Blood Tinged A (Clear) [place] [address]93 H (0-1999) /uL 03/19/24 03/19/24 03/19/24 Range/Units 05:08 06:00 06:00 RBC (4.30-5.90) m/uL Hgb (13.0-17.5) gm/dL Hct (39.0-53.0) % MCHC (31.0-37.0) g/dL RDW (11.5-15.5) % ABG pO2 (83-108) mmHg ABG HCO3 (21-25) mmol/L ABG Total CO2 (19-24) mmol/L ABG O2 Saturation (94-97) % Hemoglobin (13.0-17.5) gm/dL Sodium 134 L (137-145) mmol/L Creatinine 0.48 L (0.66-1.25) mg/dL Glucose 129 H (74-99) mg/dL POC Glucose (mg/dL) 133 H (70-110) mg/dL ALT 59 H (4-49) U/L Albumin 3.1 L (3.5-5.0) g/dL Triglycerides 179.00 H (0.00-149.00) mg/dL Fluid Appearance (Clear) Fluid RBC (0-2000) /uL 03/19/24 03/19/24 03/19/24 Range/Units 06:00 06:13 11:24 RBC 3.49 L (4.30-5.90) m/uL Hgb 8.9 L D (13.0-17.5) gm/dL Hct 29.2 L (39.0-53.0) % MCHC 30.4 L (31.0-37.0) g/dL RDW 16.1 H (11.5-15.5) % ABG pO2 120 H (83-108) mmHg ABG HCO3 26 H (21-25) mmol/L ABG Total CO2 27 H (19-24) mmol/L ABG O2 Saturation 99.6 H (94-97) % Hemoglobin 8.6 L (13.0-17.5) gm/dL Sodium (137-145) mmol/L Creatinine (0.66-1.25) mg/dL Glucose (74-99) mg/dL POC Glucose (mg/dL) 125 H (70-110) mg/dL ALT (4-49) U/L Albumin (3.5-5.0) g/dL Triglycerides (0.00-149.00) mg/dL Fluid Appearance (Clear) Fluid RBC (0-2000) /uL 03/19/24 Range/Units 12:22 RBC (4.30-5.90) m/uL Hgb (13.0-17.5) gm/dL Hct (39.0-53.0) % MCHC (31.0-37.0) g/dL RDW (11.5-15.5) % ABG pO2 (83-108) mmHg ABG HCO3 (21-25) mmol/L ABG Total CO2 (19-24) mmol/L ABG O2 Saturation (94-97) % Hemoglobin (13.0-17.5) gm/dL Sodium (137-145) mmol/L Creatinine (0.66-1.25) mg/dL Glucose (74-99) mg/dL POC Glucose (mg/dL) 123 H (70-110) mg/dL ALT (4-49) U/L Albumin (3.5-5.0) g/dL Triglycerides (0.00-149.00) mg/dL Fluid Appearance (Clear) Fluid RBC (0-2000) /uL Microbiology - Last 24 Hours (Table) 03/17/24 11:15 Acid Fast Bacilli Smear - Preliminary Bronchoalviolar Lavage - Right 03/17/24 11:15 Gram Stain - Preliminary Bronchoalviolar Lavage - Right Bronchial Washings Culture - Preliminary Pseudomonas aeruginosa
--- NOTE | 2024-03-19 15:45 | P.PN ---
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 Tracheostomy has been removed the patient has been intubated and transferred back to the ICU. On today's visit that is 03/19/2024,the patient remains to be afebrile, patient is on ventilator FiO2 is down to 30%, patient requiring low-dose pressor support as reported by nursing staff no vomiting or any other changes reported. Patient white count 6.7, creatinine 0.4 8 repeat bronchoscopy/sputum culture [facility] Pseudomonas sensitive to Zosyn Objective - Vital Signs Vital signs: Vital Signs Temp 98.0 F 03/19/24 12:15 Pulse 49 L 03/19/24 14:45 Resp 27 H 03/19/24 14:45 BP 117/58 03/19/24 14:45 Pulse Ox 99 03/19/24 14:45 FiO2 30 03/19/24 12:15 Intake & Output 03/18/24 03/19/24 03/19/24 18:59 06:59 18:59 Intake Total 2664.829 1465.985 978.190 Output Total 2717 874 2427 Balance 1264.829 700.985 -216.810 Weight 94.9 kg 94.9 kg Intake: IV 1036 936 646 3cc/hr Lorrie 36 36 21 Lactated Ringers 1,000 ml 900 900 525 @ 75 mls/hr IV .[id number] [facility] Rx#:[id number] Piperacillin-Tazobactam 3 100 100 .375 gm In Sodium Chloride 0.9% 100 ml @ 25 mls/hr IVPB Q8HR [facility] Rx# :[id number] Intake, IV Titration 1538.829 529.985 332.190 Amount Fat Emulsion 20% 250 ml 126 126 In Empty Bag 1 bag @ 21 mls/hr IV Q72H [facility] Rx#: [id number] Magnesium Sulfate-D5w Pmx 100 1 gm In Dextrose/Water 1 100ml.bag @ 100 mls/hr IVPB ONCE ONE Rx#: [id number] Mvi, Adult No.4 with Vit 1000.5 K 10 ml Trace (Conc-1Ml/ Dose) 1 ml Sodium Chloride 4Meq/ml Vial 56 meq Potassium Acetate 10 meq Calcium Gluconate 1 gm Magnesium Sulfate gm 1 .25 gm Sodium Phosphate 21 mmol In Amino Acids 5 %/Dextrose 20 % 1,000 ml @ 45 mls/hr IV .[id number] [facility] Rx#:[id number] Norepinephrine 8 mg In 136.046 3.985 51.670 Sodium Chloride 0.9% 250 ml @ 0.03 MCG/KG/MIN 5. 312 mls/hr IV .Q24H [facility] Rx#:[id number] Piperacillin-Tazobactam 3 100 .375 gm In Sodium Chloride 0.9% 100 ml @ 25 mls/hr IVPB Q8HR [facility] Rx# :[id number] propofoL 1,000 mg In 276.283 300 180.52 Empty Bag 1 bag @ 15 MCG/ KG/MIN 8.235 mls/hr IV . Q12H9M [facility] Rx#:[id number] TPN/PPN 90 Mvi, Adult No.4 with Vit 90 K 10 ml Trace (Conc-1Ml/ Dose) 1 ml Sodium Chloride 4Meq/ml Vial 56 meq Potassium Acetate 10 meq Calcium Gluconate 1 gm Magnesium Sulfate gm 1 .25 gm Sodium Phosphate 21 mmol In Amino Acids 5 %/Dextrose 20 % 1,000 ml @ 45 mls/hr IV .[id number] [facility] Rx#:[id number] Output: Urine 500 565 245 Stool 900 200 950 Other: Voiding Method Indwelling Catheter Indwelling Catheter Indwelling Catheter ABP, PAP, CO, CI - Last Documented Arterial Blood Pressure 142/61 - Exam GENERAL DESCRIPTION: Middle-age man intubated on the vent RESPIRATORY SYSTEM: Unlabored breathing , decreased intensity of breath sounds HEART: S1 S2 regular rate and rhythm , ABDOMEN: Soft , no tenderness - Labs CBC & Chem 7: 03/19/24 06:00 03/19/24 06:00 Labs: Abnormal Lab Results - Last 24 Hours (Table) 03/17/24 03/18/24 03/19/24 Range/Units 11:15 17:31 00:10 RBC (4.30-5.90) m/uL Hgb (13.0-17.5) gm/dL Hct (39.0-53.0) % MCHC (31.0-37.0) g/dL RDW (11.5-15.5) % ABG pO2 (83-108) mmHg ABG HCO3 (21-25) mmol/L ABG Total CO2 (19-24) mmol/L ABG O2 Saturation (94-97) % Hemoglobin (13.0-17.5) gm/dL Sodium (137-145) mmol/L Creatinine (0.66-1.25) mg/dL Glucose (74-99) mg/dL POC Glucose (mg/dL) 132 H 126 H (70-110) mg/dL ALT (4-49) U/L Albumin (3.5-5.0) g/dL Triglycerides (0.00-149.00) mg/dL Fluid Appearance Blood Tinged A (Clear) Fl[place] 43279 H (0-2000) /uL 03/19/24 03/19/24 03/19/24 Range/Units 05:08 06:00 06:00 RBC (4.30-5.90) m/uL Hgb (13.0-17.5) gm/dL Hct (39.0-53.0) % MCHC (31.0-37.0) g/dL RDW (11.5-15.5) % ABG pO2 (83-108) mmHg ABG HCO3 (21-25) mmol/L ABG Total CO2 (19-24) mmol/L ABG O2 Saturation (94-97) % Hemoglobin (13.0-17.5) gm/dL Sodium 134 L (137-145) mmol/L Creatinine 0.48 L (0.66-1.25) mg/dL Glucose 129 H (74-99) mg/dL POC Glucose (mg/dL) 133 H (70-110) mg/dL ALT 59 H (4-49) U/L Albumin 3.1 L (3.5-5.0) g/dL Triglycerides 179.00 H (0.00-149.00) mg/dL Fluid Appearance (Clear) Fluid RBC (0-2000) /uL 03/19/24 03/19/24 03/19/24 Range/Units 06:00 06:13 11:24 RBC 3.49 L (4.30-5.90) m/uL Hgb 8.9 L D (13.0-17.5) gm/dL Hct 29.2 L (39.0-53.0) % MCHC 30.4 L (31.0-37.0) g/dL RDW 16.1 H (11.5-15.5) % ABG pO2 120 H (83-108) mmHg ABG HCO3 26 H (21-25) mmol/L ABG Total CO2 27 H (19-24) mmol/L ABG O2 Saturation 99.6 H (94-97) % Hemoglobin 8.6 L (13.0-17.5) gm/dL Sodium (137-145) mmol/L Creatinine (0.66-1.25) mg/dL Glucose (74-99) mg/dL POC Glucose (mg/dL) 125 H (70-110) mg/dL ALT (4-49) U/L Albumin (3.5-5.0) g/dL Triglycerides (0.00-149.00) mg/dL Fluid Appearance (Clear) Fluid RBC (0-2000) /uL 03/19/24 Range/Units 12:22 RBC (4.30-5.90) m/uL Hgb (13.0-17.5) gm/dL Hct (39.0-53.0) % MCHC (31.0-37.0) g/dL RDW (11.5-15.5) % ABG pO2 (83-108) mmHg ABG HCO3 (21-25) mmol/L ABG Total CO2 (19-24) mmol/L ABG O2 Saturation (94-97) % Hemoglobin (13.0-17.5) gm/dL Sodium (137-145) mmol/L Creatinine (0.66-1.25) mg/dL Glucose (74-99) mg/dL POC Glucose (mg/dL) 123 H (70-110) mg/dL ALT (4-49) U/L Albumin (3.5-5.0) g/dL Triglycerides (0.00-149.00) mg/dL Fluid Appearance (Clear) Fluid RBC (0-2000) /uL Microbiology - Last 24 Hours (Table) 03/17/24 11:15 Gram Stain - Final Bronchoalviolar Lavage - Right Bronchial Washings Culture - Final Pseudomonas aeruginosa 03/17/24 11:15 Acid Fast Bacilli Smear - Preliminary Bronchoalviolar Lavage - Right Assessment and Plan (1) Pneumonia Current Visit: No Status: Acute Code(s): J18.9 - PNEUMONIA, UNSPECIFIED ORGANISM SNOMED Code(s): 469046139 (2) Sepsis Current Visit: No Status: Acute Code(s): A41.9 - SEPSIS, UNSPECIFIED ORGANISM SNOMED Code(s): 96283028 Plan: 1patient presented to hospital with sepsis in this patient who did have a low- grade fever elevated white count tachycardia meeting criteria for SIRS source likely pneumonia at this patient presenting with increasing shortness of breath cough with evidence of right-sided infiltrate, patient has been admitted to the hospital and will need to cover for resistant gram-positive as well as gram- negative 2-patient is status post bronchoscopy and lavage completed on 03/02/2024 cultures currently growing Pseudomonas that is resistant to cefepime, with repeat bronchoscopy on 03/17/2024 and grew Pseudomonas again sensitive to Zosyn 3-patient will be treated with the Zosyn at this point and monitor clinical course closely Mother at the bedside question answered Dictation was produced using [employer] dictation software. please excuse any grammatical, word or spelling errors. Time with Patient: Less than 30
[2024-03-19 17:27] LABS: ABG Base Excess 1.9 mmol/L; ABG HCO3 27 mmol/L (21-25); ABG Oxygen Saturation 96.9 % (94-97); ABG PCO2 41 mmHg (35-45); ABG PH 7.42 (7.35-7.45); ABG PO2 81 mmHg (83-108); ABG TCO2 28 mmol/L (19-24)
[2024-03-19 17:28] LABS: Glucose,Whole Blood 101 mg/dL (70-110)
[2024-03-20 00:45] LABS: Glucose,Whole Blood 115 mg/dL (70-110)
[2024-03-20 04:48] LABS: Glucose,Whole Blood 115 mg/dL (70-110)
[2024-03-20 04:57] LABS: Anisocytosis Slight; Basophils % (A) 0 %; Eosinophils % (A) 1 %; HCT 27.9 % (39.0-53.0); HGB 8.5 gm/dL (13.0-17.5); Hypochromasia Marked; Lymphocytes # (A) 1.1 k/uL (1.0-4.8); Lymphocytes % (A) 19 %; MCHC 30.3 g/dL (31.0-37.0); MCV 82.6 fL (80.0-100.0); Mean Platelet Volume 10.9; Monocytes # (A) 0.3 k/uL (0-1.0); Monocytes % (A) 5 %; Neutrophils # (A) 4.3 k/uL (1.3-7.7); Neutrophils % (A) 74 %; Platelet Count 242 k/uL (150-450); Poikilocytosis Slight; RBC 3.38 m/uL (4.30-5.90); RDW 16.3 % (11.5-15.5); WBC 5.8 k/uL (3.8-10.6)
[2024-03-20 05:12] LABS: African American GFR (CKD) >90 (>60 ml/min/1.73 sqM); Anion Gap 8 mmol/L; Blood Urea Nitrogen 12 mg/dL (9-20); Calcium 9.2 mg/dL (8.4-10.2); Carbon Dioxide 24 mmol/L (22-30); Chloride 102 mmol/L (98-107); Glucose 113 mg/dL (74-99); Non-African American GFR(CKD) >90 (>60 ml/min/1.73 sqM); Potassium 3.4 mmol/L (3.5-5.1); Sodium 134 mmol/L (137-145)
[2024-03-20 05:56] LABS: ABG Base Excess 1.9 mmol/L; ABG HCO3 26 mmol/L (21-25); ABG Oxygen Saturation 97.8 % (94-97); ABG PCO2 36 mmHg (35-45); ABG PH 7.46 (7.35-7.45); ABG PO2 85 mmHg (83-108); ABG TCO2 27 mmol/L (19-24); Allen Test Performed? Yes
[2024-03-20] MEDS: POTASSIUM BICARBONATE/CIT AC 20 MEQ TABLET.EFF NG-TUBE SCH ×2 (07:05→22:03)
[2024-03-20] MEDS: HYDROmorphone 1 MG/ML 1 ML SYRINGE IVP STA ×3 (10:17→23:54)
--- NOTE | 2024-03-20 11:30 | P.PN ---
Subjective Progress Note Date: 03/20/24 SURGICAL PROGRESS NOTE CHIEF COMPLAINT: Respiratory failure HISTORY OF PRESENT ILLNESS: Patient returned to the ICU on 03/17/2024 due to respiratory distress. Patient had to be reintubated and tracheostomy tube was removed at that time. Patient currently in the ICU and is intubated. Afebrile. WBC 5.8 Hgb 8.5 platelets 242 PHYSICAL EXAM: VITAL SIGNS: Reviewed. GENERAL: No acute distress HEENT: Prior tracheostomy site covered with gauze and compression dressing ASSESSMENT: 1. Acute hypoxic respiratory failure. Patient status post removal of tracheostomy tube March 17, 2024 and reintubated. 2. History of tracheal stenosis PLAN: -Further recommendations forthcoming per surgeon regarding revision of tracheostomy Physician Tax Director note has been reviewed by physician. Signing provider agrees with the documented findings, assessment, and plan of care. Objective - Vital Signs Vital signs: Vital Signs Temp 98.1 F 03/20/24 10:15 Pulse 79 03/20/24 11:15 Resp 30 H 03/20/24 11:15 BP 117/58 03/19/24 18:30 Pulse Ox 97 03/20/24 11:15 FiO2 30 03/20/24 08:30 Intake & Output 03/19/24 03/20/24 03/20/24 18:59 06:59 18:59 Intake Total 0655.383 5798.011 936.429 Output Total 1345 1025 120 Balance 234.640 245.011 816.429 Weight 94.9 kg 96.2 kg Intake: IV 1136 936 670 3cc/hr Lorrie 36 36 15 Lactated Ringers 1,000 ml 900 900 375 @ 75 mls/hr IV .[id number] [facility] Rx#:[id number] Mvi, Adult No.4 with Vit 180 K 10 ml Trace (Conc-1Ml/ Dose) 1 ml Sodium Chloride 4Meq/ml Vial 56 meq Potassium Acetate 10 meq Calcium Gluconate 1 gm Magnesium Sulfate gm 1 .25 gm Sodium Phosphate 21 mmol In Amino Acids 5 %/Dextrose 20 % 1,000 ml @ 45 mls/hr IV .[id number] [facility] Rx#:[id number] Piperacillin-Tazobactam 3 200 100 .375 gm In Sodium Chloride 0.9% 100 ml @ 25 mls/hr IVPB Q8HR [facility] Rx# :[id number] Intake, IV Titration 443.640 334.011 166.429 Amount Magnesium Sulfate-D5w Pmx 100 1 gm In Dextrose/Water 1 100ml.bag @ 100 mls/hr IVPB ONCE ONE Rx#: [id number] Norepinephrine 8 mg In 63.120 Sodium Chloride 0.9% 250 ml @ 0.03 MCG/KG/MIN 5. 312 mls/hr IV .Q24H [facility] Rx#:[id number] propofoL 1,000 mg In 280.52 334.011 166.429 Empty Bag 1 bag @ 15 MCG/ KG/MIN 8.235 mls/hr IV . Q12H9M [facility] Rx#:[id number] Oral 100 Output: Urine 395 375 120 Stool 950 650 Other: Voiding Method Indwelling Catheter Indwelling Catheter ABP, PAP, CO, CI - Last Documented Arterial Blood Pressure 109/46 - Labs CBC & Chem 7: 03/20/24 04:44 03/20/24 04:44 Labs: Abnormal Lab Results - Last 24 Hours (Table) 03/19/24 03/19/24 03/20/24 Range/Units 12:22 17:25 00:43 RBC (4.30-5.90) m/uL Hgb (13.0-17.5) gm/dL Hct (39.0-53.0) % MCHC (31.0-37.0) g/dL RDW (11.5-15.5) % ABG pH (7.35-7.45) ABG pO2 81 L (83-108) mmHg ABG HCO3 27 H (21-25) mmol/L ABG Total CO2 28 H (19-24) mmol/L ABG O2 Saturation (94-97) % Hemoglobin 8.6 L (13.0-17.5) gm/dL Sodium (137-145) mmol/L Potassium (3.5-5.1) mmol/L Creatinine (0.66-1.25) mg/dL Glucose (74-99) mg/dL POC Glucose (mg/dL) 123 H 115 H (70-110) mg/dL 03/20/24 03/20/24 03/20/24 Range/Units 04:44 04:44 04:46 RBC 3.38 L (4.30-5.90) m/uL Hgb 8.5 L (13.0-17.5) gm/dL Hct 27.9 L (39.0-53.0) % MCHC 30.3 L (31.0-37.0) g/dL RDW 16.3 H (11.5-15.5) % ABG pH (7.35-7.45) ABG pO2 (83-108) mmHg ABG HCO3 (21-25) mmol/L ABG Total CO2 (19-24) mmol/L ABG O2 Saturation (94-97) % Hemoglobin (13.0-17.5) gm/dL Sodium 134 L (137-145) mmol/L Potassium 3.4 L (3.5-5.1) mmol/L Creatinine 0.43 L (0.66-1.25) mg/dL Glucose 113 H (74-99) mg/dL POC Glucose (mg/dL) 115 H (70-110) mg/dL 03/20/24 Range/Units 05:53 RBC (4.30-5.90) m/uL Hgb (13.0-17.5) gm/dL Hct (39.0-53.0) % MCHC (31.0-37.0) g/dL RDW (11.5-15.5) % ABG pH 7.46 H (7.35-7.45) ABG pO2 (83-108) mmHg ABG HCO3 26 H (21-25) mmol/L ABG Total CO2 27 H (19-24) mmol/L ABG O2 Saturation 97.8 H (94-97) % Hemoglobin 8.1 L (13.0-17.5) gm/dL Sodium (137-145) mmol/L Potassium (3.5-5.1) mmol/L Creatinine (0.66-1.25) mg/dL Glucose (74-99) mg/dL POC Glucose (mg/dL) (70-110) mg/dL Microbiology - Last 24 Hours (Table) 03/17/24 11:15 Gram Stain - Final Bronchoalviolar Lavage - Right Bronchial Washings Culture - Final Pseudomonas aeruginosa 03/17/24 11:15 Acid Fast Bacilli Smear - Preliminary Bronchoalviolar Lavage - Right
[2024-03-20 12:09] LABS: Glucose,Whole Blood 109 mg/dL (70-110)
--- NOTE | 2024-03-20 13:14 | P.PN ---
Subjective Principal diagnosis: Hypoxia. Patient is a 48-year-old male with complex past medical history including CVA, previous DVTs, right BKA, cardiac arrest in 2021, Crohn's disease, enterocutaneous fistulas, previous bowel resection, ventilator dependent respiratory failure, previous tracheostomy and reversal. Recently was admitted 12/13/2023 through 12/25/2023 for pneumonia and respiratory failure due to mucous plugging. He was intubated and placed on mechanical ventilator for approximately 6 days. He did have a bronchoscopy with BAL, microbiology positive for haemophilus influenza. Eventually, discharged home, and returned 01/02/24 for GIB from his ostomy. Was reintubated and did spend some time on the ventilator for reccurent pneumonia and mucous plugging. During this time, had multiple bronchoscopies with BAL, once on 12/31/2023 and again on 01/03/2024, isolated organisms including MRSA and Pseudomonas. Patient was eventually discharged back home on 01/16/2024. More recently, patient had an ER visit for increased work of breathing on February 22, and the patient was sent home. Returned for similar symptoms yesterday afternoon. Chest x-ray done on admission showing cardiomegaly with pulmonary vascular congestion and questionable right lower lobe infiltrate or effusion. CBC: WBC count 11.2, hemoglobin 10.5, hematocrit 37.3, platelets 315. CMP: Sodium 138, potassium 4.8, chloride 97, serum bicarb 39, BUN 23, creatinine 0.45, glucose 103. Lactic 1. LFTs unremarkable. Troponin less than 0.012. I am evaluating this patient emergency department, he is currently unresponsive, to even painful stimuli. He is on a 15 L nonrebreather. SpO2 88%. Diminished breath sounds on the right Will place this patient on BiPAP with initial settings 16/5 FiO2 to be titrated accordingly. Will get a stat ABG. We will repeat chest x-ray. I did talk to the patient's son, Alan, he is adamant that the patient remain a full code, would want the patient intubated if necessary. On reassessment in the emergency department, patient remained on BiPAP with settings 16/5 100%. He remains unresponsive to painful stimuli. Now only achieving tidal volumes ranging from 100 to 200 cc. Unfortunately, we were not able to to get an initial blood gas. I recommended that the patient be moved to the trauma bay and intubated by the FACTORY MAINTENANCE MANAGER. Follow-up chest x-ray showing the endotracheal tube in appropriate position above the avery. Orogastric tube coursing below the diaphragm. Initial ventilator settings include assist- control, respiratory rate 20, tidal volume 500, FiO2 100%, PEEP of 5. Currently, patient is fairly asynchronous with the ventilator and he is biting the tube. There are copious amounts of blood-tinged sputum in the ET tube. Elevated peak airway pressures of 45. Static pressure 32. The nurses are working on appropriately sedating the patient with propofol. Postintubation, the patient did become hypotensive, currently receiving his second liter of normal saline. Will also start the patient on norepinephrine to maintain a MAP of greater than 65 mmHg. I did insert a left femoral arterial line. Following this, we did obtain an ABG showing profound hypercapnic and hypoxic respiratory failure. PaO2 of 89, pCO2 98, pH of 7.11. Appropriate ventilator adjustments were made including increasing the rate to 26 and PEEP can be increased to 8. Patient may eventually need repeat bronchoscopy with BAL. Case will be discussed with Dr. Munoz. Patient is still waiting for a bed in the intensive care unit. I did call and update patient's son Alan about his change in clinical condition. On 03/07/2024, the patient is awake and alert and the patient is currently off propofol. The patient is still on the mechanical ventilator assist-control mode rate of 16, tidal volume of 500, FiO2 50% with a PEEP of 6. Calm and comfortable and breathing comfortable. No significant secretions through the tracheostomy tube. Remains on IV Zosyn. He does have pseudomonal pneumonia for which she is on IV Zosyn based on antibiotic sensitivities. Remains on TPN and this was increased up to 60 cc an hour. Remains on anticoagulation with Lovenox 80 mg subcu every 12 hours. Ileostomy is still active and the patient is producing approximately 1000 cc of gastric output over the past 8 hours. Fluid balance -600 cc over the past 24 hours. White cell count is at 4.9 with a hemoglobin 8.8 and a platelet count of 255. BUN is 10 with a creatinine of 0.4 and the sodium is at 137 and a potassium level is at 4.1. Awake and alert and communicating. Profound weakness of lower extremities along with significant muscle atrophy. On 03/08/2024, the patient is on a T-piece at 40% FiO2. No significant r espiratory secretions., Comfortable and awake and communicating. He is asking for some oral intake of food. No respiratory difficulties. Remains on TPN at rate of 60 cc an hour. Ileostomy output has been 1500 over the past 8 hours. Fluid balance is 0. Remains on low-dose norepinephrine 0.04 mcg/kg/min. The white cell count of 5 with a hemoglobin 8.3 and a platelet count of 236. BUN is 8 with a creatinine of 0.37 and sodium levels at 137. He remains on IV Zosyn regarding his pseudomonal pneumonia. Chest x-ray findings are also stable. Patient was evaluated today on 03/09/2024, patient remains on T-piece, at 35% FiO2, seems to be fairly comfortable, does not seem to be in any distress, he is awake, communicating, does not seem to be in distress, still on TPN, 60 mL/h, patient is receiving treatment for pseudomonal infection/pneumonia and he is on Zosyn. Patient is to have a swallow evaluation today and possibly allow oral feeding. His tracheostomy was placed on 03/05, patient is still requiring low- dose norepinephrine at 0.01 mcg/kg/min. Basic metabolic profile is normal, bicarb is 37 BUN is 9 creatinine 0.41 chest x-ray continues show interstitial opacities with slight improvement specially in the right and left basilar areas Patient was evaluated today on 03/10/2024 remains in the ICU remains on T-piece at 28% FiO2 patient passed his swallow evaluation yesterday and now he is allowed to have oral feedings, in the meantime he is on TPN at 85 cc/h he is off norepinephrine since 5 AM this morning. Remains on Zosyn for his pseudomonal infection cough seems to be deflated for him to swallow and tolerate oral diet. Not much has happened in the last 24 hours otherwise. Labs were reviewed WBC count is 4.3 hemoglobin 9.3 basic metabolic profile is normal renal profile is normal Seen today on 03/12/2024, patient is doing well, he is on the medical floor, not in any distress, on 28% trach collar, remains on antibiotics, he is not requiring any pressors, hemodynamically stable, patient has a speaking valve and able to communicate. Denies any specific symptoms.WBC count is 6.2 hemoglobin is 10.1 electrolytes are normal renal profile is normal Patient was evaluated today on 03/13/2024, remains on trach collar, does not seem to be in any distress, WBC count 7.3 hemoglobin 9.3 electrolytes are normal potassium is a bit high at 5.3 renal profile is normal, overall the patient is doing great. Seen today on 03/14/2024, patient is doing well, being fed by his mother at bedside, patient is asymptomatic otherwise. Trach collar remains in place, patient is tolerating trach collar well, hardly any cough no wheezing no shortness of breath no chest pain no fever no chills no hemoptysis.Labs from today including basic metabolic profile noted and basically unremarkable on 03/15/2024, patient is basically about the same. Patient is laying in bed, being fed by his mother, tolerating feeding quite well, does not seem to be in any distress, continues to have trach collar in place, overall the patient is doing great, and eventually needs to be discharged home.WBC count 6.5 hemoglobin 10.2 basic metabolic profile is normal and renal profile is normal Progress note dated March 16, 2024. 48-year-old male who is now been here in the hospital for 20 days. The patient is seen today in room 367. The patient is on 35% trach collar. The patient is receiving IV Zosyn, and TPN at 45 cc an hour. The patient is laying nearly flat in bed. In no distress whatsoever. Current laboratory data includes a sodium 137, potassium 4.4, chlorides 103, CO2 23, BUN 22, creatinine 0.46. Glucose is 128. Calcium 10.1, phosphorus 3.0, magnesium 1.9. Bronchoscopy, with BAL, on March 02, revealed evidence of Pseudomonas aeruginosa, which was also disco lucas in his sputum, on February 25. Progress note dated March 17, 2024. 48-year-old male who was seen today in room 256. The patient was on the medical floor, and a rapid response was called on this patient, for respiratory distress. The respiratory therapist on the floor, could not ventilate the patient, despite using a [id number] device, and his saturations were in the 80s, so the patient was moved to the intensive care unit, for further monitoring and management. There, with the aid of the glide scope, the patient was orally intubated, as a tracheostomy tube, was removed. The patient was connected to the ventilator. He was sedated with propofol, and received some Nimbex for paralysis. Next, the patient underwent bronchoscopy, to evaluate the respiratory tract. There were thick secretions noted throughout, we did a BAL, of the right lung. 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 In addition to intubation, and bronchoscopy, the patient had a central line placed and a arterial line placed. Current labs include a white count 7.2, hemoglobin 9.1, hematocrit 38.8, platelet count 3 years 70,000. Blood gases show pO2 108, pCO2 of 54, pH is 7.30. The rate on the ventilator was increased to 28, and the PEEP was increased to 8, with orders to titrate the FiO2 down. Sodium 136, potassium 4.8, chlorides 103, CO2 24, BUN 21, creatinine 0.45. Chest x-ray shows endotracheal tube to be about 5 cm above the tracheal avery. There is a left lower lobe infiltrate. Progress note dated March 18, 2024. 48-year-old male who is seen today in room 256. Patient remains intubated, vent settings AC, rate 28, tidal volume 450, PEEP 8, FiO2 40 %. Blood gases show p.o. 266, pCO2 of 43, and pH 7.38. Sodium 136, potassium 4, chloride 103, CO2 21, BUN 20, creatinine 0.52. Chest x-ray shows mild atelectasis developing in the right diaphragm and endotracheal tube tip is 6.4 cm above the avery. Left central venous catheter tip is in the distal superior vena cava proximal right atrium. NG tube transverses the thorax. Progress note dated March 19, 2024. 48-year-old male who is seen in room 256. Overnight patient's occlusive bandaging around previous tracheostomy site came loose during his bath and copious amounts of secretions were seen coming out. Patient remains intubated, vent settings AC, respiratory rate 28, tidal volume 450, FiO2 30%, and PEEP 8. Blood gases show O2 of 126, CO2 39, and pH 7.42. CBC: WBC 6.7, hemoglobin 8.9, hematocrit 29.2, platelet count 304. CMP: Sodium 134, potassium 3.5, chloride 102, BUN 15, creatinine 0.48, AST 29, and ALT 59. Chest x-ray shows retrocardiac infiltrate, endotracheal tube tip is 6.6 cm above the avery. NG tube transverses the thorax. Progress note dated March 20, 2024. 48-year-old man who was seen in room 256. Overnight patient was initially acce pted to [facility], EMS arrived, but a phone call came in from [facility] stating they did not have an crm dynamics developer so cannot excepted for transfer. We will now need to restart the process with Jamarcus Iniguez and Prakash and see if capacity has changed. Vent settings: AC, respiratory rate 28, tidal volume 450, FiO2 30%, PEEP 8. ABG: pH 7.46, CO2 36, and O2 85. Patient has been off levo since 1800 yesterday. Zosyn 100 mL IVPB Q8 HR (day 6), LR 75cc/h. CBC: WBC 5.8, hemoglobin 8.5, platelet count 242. CMP sodium 134, potassium 3.4, chloride 102, creatinine 0.43. Chest x-ray shows endotracheal tube 5 cm above the avery. Retrocardiac infiltrate from prior appears improved. ROS: Cannot be assessed Pertinent imaging and labs reviewed. Physical examination: Sedated, currently paralyzed, with an orally placed endotracheal tube. T racheostomy tube has been removed. HEENT examination is grossly unremarkable. Mucous membranes are moist. No oral lesions. Neck supple. Full range of motion. No adenopathy thyromegaly or neck vein distention. Cardiovascular examination reveals regular rhythm rate. S1-S2 normal. No S3 or S4. No discernible murmur noted. Lungs reveal coarse bilateral rhonchi. Breath sounds are equal. No wheezes or crackles. Abdomen soft, nontender, with functioning ileostomy. The patient also has an enterocutaneous fistula over the anterior abdominal wall. Extremities are intact. No cyanosis clubbing or edema. Right BKA. Skin is without rash or lesion. Neurologic examination is unable to be evaluated at this time. Assessment: Acute respiratory failure, with inability to oxygenate or ventilate this patient, status post oral placement of an endotracheal tube, with removal of the tracheostomy tube, March 17, 2024. Acute hypoxemic and hypercapnic respiratory failure, requiring intubation and mechanical ventilation on February 26, 2024. S/P tracheostomy on March 05, 2024. Pseudomonas aeruginosa pneumonia. 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 Sepsis/septic shock, secondary to Pseudomonas pneumonia. Crohn's disease, status post bowel perforation, colectomy, and diverting ileostomy. TPN for nutritional support. Profound electrolyte imbalance. Tracheobronchomalacia. History of DVT. History of CVA/TIA, with residual left-sided weakness. Right BKA. History of asystole, 2021. Plan: Plan dated March 16, 2024. The patient was seen today in room 367. He is currently on 35% trach collar. He is getting TPN at 45 cc an hour. For his Pseudomonas infection, he continues on Zosyn. Labs, x-rays, and all medications are reviewed. The patient had a repeat tracheostomy performed on this admission. Apparently he had developed some tracheal stenosis from his previous tracheostomy. We are looking back to see whether or not we can identify whether or not there was some sort of defect or abnormality or tracheal flap noted on previous bronchoscopy. Prognosis is guarded. Plan dated March 17, 2024. The patient was transferred to the intensive care unit. There, we could not ventilate or oxygenate the patient, it was very difficult to bag the patient. Hence, the patient was orally intubated, using the glide scope. #8 endotracheal tube was placed. In addition, the tracheostomy tube was removed. Central line and arterial line were placed. The patient was sedated with propofol and paralyzed with Nimbex. Labs, x-rays, medications are reviewed. Because of the patient's tracheal stenosis, I believe the patient would best served to be transferred to [facility], or a similar institution. Additional recommendations and suggestions are forthcoming. Labs, x-rays, and medications are reviewed. We did notify the primary service of our desire to transfer this patient. Plan dated March 18, 2024. The patient was seen today in the intensive care unit. On chest x-ray endotracheal tube seen 6.4 cm above the avery and RT moved ET tube closer so t hat it would be within 3 to 4 cm above the avery. Primary team has been notified of our desire to transfer this patient due to the high complexity of his case and tracheal stenosis. Patient still awaiting bed at an accepting hospital. Remains on LR 75 cc/h, Zosyn 100 mL IVPB Q8 HR, propofol 1000 Mg IV 15 mcg/kg/min. Additional recommendations and suggestions are forthcoming. Labs, x-rays, and medications are reviewed. Prognosis is guarded. Plan dated March 19, 2024. Patient seen today in the intensive care unit. On chest x-ray endotracheal tube seen 6.6 cm above the avery and RT moved to ET tube closer so that it would be within 3 to 4 cm above the avery. Patient's oxygen level on ABG continues to remain high, adjusted FiO2 decreased from 40% to 30% this morning. Patient still pending bed at accepting hospital for transfer. Remains on LR 75 cc/h, Zosyn 100 mL IVPB Q8 HR (day 5), propofol 1000 mg IV 15 mcg/kg/min, tpn 30, levo 1.8 mcg/mg. Additional recommendations and suggestions are forthcoming. Labs, x-rays, and medications are reviewed. Prognosis is guarded. Plan dated March 20, 2024. Patient seen today intensive care unit. Patient still awaiting transfer to accepting hospital due to tracheal stenosis, was denied yesterday from [facility]. Chest x-ray from today appears improved in terms of infiltrates compared to yesterday. Patient remains off levo since 1800 yesterday. Documented Pseudomonas infection, continue Zosyn 100 mL IVPB Q8 HR (day 7). Patient is getting TPN at 30 cc/h. Additional recommendations and suggestions are forthcoming. Labs, x-rays, and medications are reviewed. Prognosis is guarded. Objective - Vital Signs Vital signs: Vital Signs Temp 97.8 F 03/20/24 04:00 Pulse 72 03/20/24 08:27 Resp 28 H 03/20/24 07:00 BP 117/58 03/19/24 18:30 Pulse Ox 98 03/20/24 07:00 FiO2 30 03/20/24 08:21 Intake & Output 03/19/24 03/20/24 03/20/24 18:59 06:59 18:59 Intake Total 7453.729 3336.011 178 Output Total 1345 1025 30 Balance 234.640 245.011 148 Weight 94.9 kg 96.2 kg Intake: IV 1136 936 78 3cc/hr Varnell 36 36 3 Lactated Ringers 1,000 ml 900 900 75 @ 75 mls/hr IV .[id number] [facility] Rx#:[id number] Piperacillin-Tazobactam 3 200 .375 gm In Sodium Chloride 0.9% 100 ml @ 25 mls/hr IVPB Q8HR [facility] Rx# :[id number] Intake, IV Titration 443.640 334.011 100 Amount Magnesium Sulfate-D5w Pmx 100 1 gm In Dextrose/Water 1 100ml.bag @ 100 mls/hr IVPB ONCE ONE Rx#: [id number] Norepinephrine 8 mg In 63.120 Sodium Chloride 0.9% 250 ml @ 0.03 MCG/KG/MIN 5. 312 mls/hr IV .Q24H [facility] Rx#:[id number] propofoL 1,000 mg In 280.52 334.011 100 Empty Bag 1 bag @ 15 MCG/ KG/MIN 8.235 mls/hr IV . Q12H9M [facility] Rx#:[id number] Output: Urine 395 375 30 Stool 950 650 Other: Voiding Method Indwelling Catheter Indwelling Catheter ABP, PAP, CO, CI - Last Documented Arterial Blood Pressure 118/55 - Labs CBC & Chem 7: 03/20/24 04:44 03/20/24 04:44 Labs: Abnormal Lab Results - Last 24 Hours (Table) 03/17/24 03/19/24 03/19/24 Range/Units 11:15 06:00 11:24 RBC (4.30-5.90) m/uL Hgb (13.0-17.5) gm/dL Hct (39.0-53.0) % MCHC (31.0-37.0) g/dL RDW (11.5-15.5) % ABG pH (7.35-7.45) ABG pO2 (83-108) mmHg ABG HCO3 (21-25) mmol/L ABG Total CO2 (19-24) mmol/L ABG O2 Saturation (94-97) % Hemoglobin (13.0-17.5) gm/dL Sodium (137-145) mmol/L Potassium (3.5-5.1) mmol/L Creatinine (0.66-1.25) mg/dL Glucose (74-99) mg/dL POC Glucose (mg/dL) 125 H (70-110) mg/dL Triglycerides 179.00 H (0.00-149.00) mg/dL Fluid Appearance Blood Tinged A (Clear) Fluid RBC 89525 H (0-2000) /uL 03/19/24 03/19/24 03/20/24 Range/Units 12:22 17:25 00:43 RBC (4.30-5.90) m/uL Hgb (13.0-17.5) gm/dL Hct (39.0-53.0) % MCHC (31.0-37.0) g/dL RDW (11.5-15.5) % ABG pH (7.35-7.45) ABG pO2 81 L (83-108) mmHg ABG HCO3 27 H (21-25) mmol/L ABG Total CO2 28 H (19-24) mmol/L ABG O2 Saturation (94-97) % Hemoglobin 8.6 L (13.0-17.5) gm/dL Sodium (137-145) mmol/L Potassium (3.5-5.1) mmol/L Creatinine (0.66-1.25) mg/dL Glucose (74-99) mg/dL POC Glucose (mg/dL) 123 H 115 H (70-110) mg/dL Triglycerides (0.00-149.00) mg/dL Fluid Appearance (Clear) Fluid RBC (0-2000) /uL 03/20/24 03/20/24 03/20/24 Range/Units 04:44 04:44 04:46 RBC 3.38 L (4.30-5.90) m/uL Hgb 8.5 L (13.0-17.5) gm/dL Hct 27.9 L (39.0-53.0) % MCHC 30.3 L (31.0-37.0) g/dL RDW 16.3 H (11.5-15.5) % ABG pH (7.35-7.45) ABG pO2 (83-108) mmHg ABG HCO3 (21-25) mmol/L ABG Total CO2 (19-24) mmol/L ABG O2 Saturation (94-97) % Hemoglobin (13.0-17.5) gm/dL Sodium 134 L (137-145) mmol/L Potassium 3.4 L (3.5-5.1) mmol/L Creatinine 0.43 L (0.66-1.25) mg/dL Glucose 113 H (74-99) mg/dL POC Glucose (mg/dL) 115 H (70-110) mg/dL Triglycerides (0.00-149.00) mg/dL Fluid Appearance (Clear) Fluid RBC (0-2000) /uL 03/20/24 Range/Units 05:53 RBC (4.30-5.90) m/uL Hgb (13.0-17.5) gm/dL Hct (39.0-53.0) % MCHC (31.0-37.0) g/dL RDW (11.5-15.5) % ABG pH 7.46 H (7.35-7.45) ABG pO2 (83-108) mmHg ABG HCO3 26 H (21-25) mmol/L ABG Total CO2 27 H (19-24) mmol/L ABG O2 Saturation 97.8 H (94-97) % Hemoglobin 8.1 L (13.0-17.5) gm/dL Sodium (137-145) mmol/L Potassium (3.5-5.1) mmol/L Creatinine (0.66-1.25) mg/dL Glucose (74-99) mg/dL POC Glucose (mg/dL) (70-110) mg/dL Triglycerides (0.00-149.00) mg/dL Fluid Appearance (Clear) Fluid RBC (0-2000) /uL Microbiology - Last 24 Hours (Table) 03/17/24 11:15 Gram Stain - Final Bronchoalviolar Lavage - Right Bronchial Washings Culture - Final Pseudomonas aeruginosa 03/17/24 11:15 Acid Fast Bacilli Smear - Preliminary Bronchoalviolar Lavage - Right
--- NOTE | 2024-03-20 14:09 | XR ---
EXAMINATION TYPE: XR chest 1V portable DATE OF EXAM: 03/20/2024 4:21 AM COMPARISON: 03/19/2024 CLINICAL INDICATION: Male, 48 years old with history of Tube placement, TECHNIQUE: XR chest 1V portable view(s) obtained. FINDINGS: The heart size is normal. The pulmonary vasculature is normal. The lungs are clear. Endotracheal tube tip is 5 cm above the avery. Nasogastric tube transverses the thorax the tip in th e proximal left upper quadrant abdomen. Left central venous catheter tip is in the proximal right atr ium. IMPRESSION: 1. No acute pulmonary process. 2. Lines and catheters discussed above [facility], , 03/20/2024 2:07 PM
[2024-03-20] MEDS: MVI, ADULT NO.4 WITH VIT K 10 ML, TRACE (CONC-1ML/DOSE) 1 ML, SODIUM CHLORIDE 4MEQ/ML V... IV SCH (16:32)
[2024-03-20 17:30] LABS: Glucose,Whole Blood 99 mg/dL (70-110)
[2024-03-21 00:12] LABS: Glucose,Whole Blood 100 mg/dL (70-110)
--- NOTE | 2024-03-21 04:21 | P.PN ---
Subjective This is a pleasant 48-year-old male who was recently admitted with hypoxia concerns of pneumonia initially with significant mucous plugging being followed by multiple consultations in the ICU with concerns of sepsis and difficulty weaning requiring tracheostomy. Cultures finalized from the sputum with Pseudomonas and is maintained on antibiotics in the form of Zosyn with infectious disease following. Patient doing well on tracheostomy and planning on ECF possibly in the next few days early next week. Patient is afebrile and will continue antibiotics with the plans for 10 days to 2 weeks on IV antibiotic therapy on discharge. Will discuss further with case management/social work regarding discharge planning. Patient has been moved out of the ICU and remained stable at this time. Recommend aspiration precautions and sitting with the head of the bed elevated 30 to 45 degrees at all times 03/14/2024 Patient is seen in follow-up today with no acute overnight issues noted. Patient is tolerating oral intake and also continued on TPN. Patient does have a PICC line and will be continuing on 10 days to 2 weeks of Zosyn on discharge per ID recommendations. Case management/social work following working on accepting ECF and currently [facility] is reviewing. Patient is afebrile with no reports of increasing shortness of breath and denies chest pain. 03/15/2024 Patient is seen in follow-up today with no acute overnight issues noted patient per nursing staff did have 1 brief episode of blood in the ostomy that was minute although will order stat CBC patient has had no further episodes. Patient is afebrile with no reports of chest pain or worsening shortness of breath tolerating tracheostomy and is continued on diet along with TPN and will continue. Patient continues on IV Zosyn with infectious disease following and will discuss further with case management/social work regarding discharge planning and currently awaiting an accepting ECF. Multiple other facilities have received the patient thus far. Patient will need continued IV antibiotic therapy on discharge for 10 days to 2 weeks. 03/16/2024 Patient is seen in follow-up today and per nursing staff having some issues with swelling and irritation around the tracheostomy site. General surgery following recommending causing the area and continue monitoring closely. Per nursing staff patient was desatting quickly and is currently maintained on trach collar 8. Patient is afebrile denies chest pain or palpitations. Patient is tolerating diet and also maintained on TPN. Patient will continue on IV antibiotics with infectious disease following and does have a PICC line. Awaiting clearance from consultations to discuss discharge planning to ECF. Ca se management following working on accepting ECF. 03/17 Patient today was becoming more hypoxic and oxygen dropped to mid 80s on high 70s while he is on FiO2 of 100%. Getting it through trach collar in place. He was awake alert complaining from breathing difficulty mildly tachypneic while at rest. Complaining from some pain in his right chest. Abdomen is soft and there is big wound in the middle of the abdomen with fecal management system in place. Connected to his abdominal wound Medina catheter in place A team was called. Patient was transferred to the ICU for further management. Labs from today showing WBC 7.2, hemoglobin 11.1. Creatinine within the reference range at 0.45. Glucose controlled. Chest x-ray: Showing no acute pulmonary process. Looks like there is chronic elevation of the right diaphragm. 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 03/18/24 Patient remains in the ICU he is intubated and on mechanical ventilation through the oral cavity. However he was awake this morning and he follows simple commands. Nevertheless patient remains very sick. He is in septic shock requiring pressors with high-dose of Levophed. He is currently covered with Zosyn with bronchoalveolar lavage washing and growing Pseudomonas from 2 days ago. Microorganism is resistant to cefepime. Therefore patient is continued on Zosyn per ID team. Also he is getting TPN and Ringer lactate at 75 mL/h Chest x-ray which I reviewed by myself per radiologist with has atelectasis, I reviewed the chest x-ray by myself. Yesterday we tried to transfer the patient to [facility] regarding his recurrent respiratory distress related to his tracheomalacia but he was denied. Today is holiday and no staff besides vanna has full capacity at the not accepting new patients per Staff. 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 He remains on small dose of Levophed and normal saline and antibiotic of Zosyn Culture results from bronchoalveolar lavage is growing Pseudomonas again. It looks like his infection was not controlled with the Zosyn by itself therefore we recommend adding Levaquin for better coverage however we will defer this decision and antibiotic management to the infectious disease team. We will try to transfer the patient to [facility] per recommendation of pulmonary team for his tracheomalacia with complication. Discussed with staff 03/20 Patient remains in the ICU intubated and sedated on propofol however he was able to wake up and communicate with the staff Patient is complaining from back pain and although he is on Dilaudid 1 mg every 3 hours, he is able to ask for more pain medication which is provided as breakthrough doses. He currently provided Alsen for her for better pain control patient declines any he is insisting on getting Dilaudid. Yesterday patient was accepted at [facility] but last minutes they change her mind and they called me to decline the case, in the meantime the plan remains to transfer to transfer the patient to the [facility] for [facility] oncentheir capacity to accept new patients has changed. Patient is also on therapeutic dose of Lovenox 80 mg twice daily and Zosyn for his Pseudomonas pneumonia Objective - Vital Signs Vital signs: Vital Signs Temp 98.1 F 03/20/24 10:15 Pulse 68 03/20/24 12:14 Resp 30 H 03/20/24 11:15 BP 117/58 03/19/24 18:30 Pulse Ox 97 03/20/24 11:15 FiO2 30 03/20/24 12:07 Intake & Output 03/19/24 03/20/24 03/20/24 18:59 06:59 18:59 Intake Total 2384.674 6237.011 1036.429 Output Total 1345 1025 120 Balance 234.640 245.011 916.429 Weight 94.9 kg 96.2 kg Intake: IV 1136 936 670 3cc/hr Lorrie 36 36 15 Lactated Ringers 1,000 ml 900 900 375 @ 75 mls/hr IV .[id number] [facility] Rx#:[id number] Mvi, Adult No.4 with Vit 180 K 10 ml Trace (Conc-1Ml/ Dose) 1 ml Sodium Chloride 4Meq/ml Vial 56 meq Potassium Acetate 10 meq Calcium Gluconate 1 gm Magnesium Sulfate gm 1 .25 gm Sodium Phosphate 21 mmol In Amino Acids 5 %/Dextrose 20 % 1,000 ml @ 45 mls/hr IV .[id number] [facility] Rx#:[id number] Piperacillin-Tazobactam 3 200 100 .375 gm In Sodium Chloride 0.9% 100 ml @ 25 mls/hr IVPB Q8HR [facility] Rx# :[id number] Intake, IV Titration 443.640 334.011 266.429 Amount Magnesium Sulfate-D5w Pmx 100 1 gm In Dextrose/Water 1 100ml.bag @ 100 mls/hr IVPB ONCE ONE Rx#: [id number] Norepinephrine 8 mg In 63.120 Sodium Chloride 0.9% 250 ml @ 0.03 MCG/KG/MIN 5. 312 mls/hr IV .Q24H [facility] Rx#:[id number] propofoL 1,000 mg In 280.52 334.011 266.429 Empty Bag 1 bag @ 15 MCG/ KG/MIN 8.235 mls/hr IV . Q12H9M [facility] Rx#:[id number] Oral 100 Output: Urine 395 375 120 Stool 950 650 Other: Voiding Method Indwelling Catheter Indwelling Catheter ABP, PAP, CO, CI - Last Documented Arterial Blood Pressure 109/46 - Exam -GENERAL: The patient is currently intubated and on mechanical ventilation HEENT: Pupils are round and equally reacting to light. EOMI. No scleral icterus. No conjunctival pallor. Normocephalic, atraumatic. No pharyngeal erythema. No t hyromegaly. CARDIOVASCULAR: S1 and S2 present. No murmurs, rubs, or gallops. -PULMONARY: Chest is clear to auscultation, no wheezing , no crackles. Decreased breath sounds on both sides ABDOMEN: Soft, nontender, nondistended, normoactive bowel sounds. No palpable organomegaly. Central abdominal wound with similar to colostomy bag in place connected to fecal management system MUSCULOSKELETAL: No joint swelling or deformity. EXTREMITIES: No cyanosis, clubbing, or pedal edema. NEUROLOGICAL: Gross neurological examination did not reveal any focal deficits. SKIN: No rashes. no petechiae. - Labs CBC & Chem 7: 03/20/24 04:44 03/20/24 14:00 Labs: Abnormal Lab Results - Last 24 Hours (Table) 03/19/24 03/20/24 03/20/24 Range/Units 17:25 00:43 04:44 RBC (4.30-5.90) m/uL Hgb (13.0-17.5) gm/dL Hct (39.0-53.0) % MCHC (31.0-37.0) g/dL RDW (11.5-15.5) % ABG pH (7.35-7.45) ABG pO2 81 L (83-108) mmHg ABG HCO3 27 H (21-25) mmol/L ABG Total CO2 28 H (19-24) mmol/L ABG O2 Saturation (94-97) % Hemoglobin 8.6 L (13.0-17.5) gm/dL Sodium 134 L (137-145) mmol/L Potassium 3.4 L (3.5-5.1) mmol/L Creatinine 0.43 L (0.66-1.25) mg/dL Glucose 113 H (74-99) mg/dL POC Glucose (mg/dL) 115 H (70-110) mg/dL 03/20/24 03/20/24 03/20/24 Range/Units 04:44 04:46 05:53 RBC 3.38 L (4.30-5.90) m/uL Hgb 8.5 L (13.0-17.5) gm/dL Hct 27.9 L (39.0-53.0) % MCHC 30.3 L (31.0-37.0) g/dL RDW 16.3 H (11.5-15.5) % ABG pH 7.46 H (7.35-7.45) ABG pO2 (83-108) mmHg ABG HCO3 26 H (21-25) mmol/L ABG Total CO2 27 H (19-24) mmol/L ABG O2 Saturation 97.8 H (94-97) % Hemoglobin 8.1 L (13.0-17.5) gm/dL Sodium (137-145) mmol/L Potassium (3.5-5.1) mmol/L Creatinine (0.66-1.25) mg/dL Glucose (74-99) mg/dL POC Glucose (mg/dL) 115 H (70-110) mg/dL Microbiology - Last 24 Hours (Table) 03/17/24 11:15 Gram Stain - Final Bronchoalviolar Lavage - Right Bronchial Washings Culture - Final Pseudomonas aeruginosa Assessment and Plan Assessment: Pseudomonas pneumonia with sepsis, and acute hypoxic respiratory failure with right lower lobe pneumonia, present on admission, status post mechanical ventilation requiring tracheostomy, culture showing Pseudomonas Septic shock secondary to above Acute hypoxic respiratory failure secondary to above requiring intubation and mechanical ventilation on 03/17 Status post tracheostomy Recurrent mucous plugging 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 ID team on the case. Patient may benefit also from adding another antibiotics like levofloxacin as it is sensitive as well however will defer antibiotic management to infectious disease team Will keep trying to transfer the patient to tertiary care center, patient was [facility]. Some other options include [facility] and [facility] who had full capacity in the last few days that this might change later Continue with TPN Continue with IV hydrocortisone 50 mg 3 times daily Continue with IV fluid Ringer lactate Continue with Zosyn Continue therapeutic dose of Lovenox 80 mg twice daily. Pulmonary team consulted on the case Infectious disease and general surgery team consult Labs and medication were reviewed.. Continue same treatment. Continue with symptomatic treatment. Resume home medication. Monitor labs and vitals. DVT and GI prophylaxis. Further recommendations as per clinical course of the patient DVT prophylaxis: Subcutaneous heparin GI Prophylaxis: Protonix PT/OT: Pending Prognosis is guarded Lovenox
[2024-03-21 05:17] LABS: Glucose,Whole Blood 110 mg/dL (70-110)
[2024-03-21 05:38] LABS: Anisocytosis Slight; Basophils % (A) 0 %; Eosinophils # (A) 0.1 k/uL (0-0.7); Eosinophils % (A) 1 %; HCT 27.6 % (39.0-53.0); HGB 8.2 gm/dL (13.0-17.5); Hypochromasia Marked; Lymphocytes # (A) 1.4 k/uL (1.0-4.8); Lymphocytes % (A) 28 %; MCH 24.5 pg (25.0-35.0); MCHC 29.7 g/dL (31.0-37.0); MCV 82.4 fL (80.0-100.0); Mean Platelet Volume 9.3; Monocytes # (A) 0.3 k/uL (0-1.0); Monocytes % (A) 6 %; Neutrophils # (A) 3.2 k/uL (1.3-7.7); Neutrophils % (A) 64 %; Platelet Count 266 k/uL (150-450); Poikilocytosis Slight; RBC 3.35 m/uL (4.30-5.90); RDW 16.1 % (11.5-15.5)
[2024-03-21 05:50] LABS: ABG Base Excess 2.1 mmol/L; ABG HCO3 25 mmol/L (21-25); ABG Oxygen Saturation 98.3 % (94-97); ABG PCO2 30 mmHg (35-45); ABG PH 7.52 (7.35-7.45); ABG PO2 84 mmHg (83-108); ABG TCO2 26 mmol/L (19-24); Allen Test Performed? Yes
[2024-03-21 05:56] LABS: African American GFR (CKD) >90 (>60 ml/min/1.73 sqM); Anion Gap 8 mmol/L; Blood Urea Nitrogen 10 mg/dL (9-20); Calcium 8.8 mg/dL (8.4-10.2); Carbon Dioxide 23 mmol/L (22-30); Chloride 102 mmol/L (98-107); Glucose 103 mg/dL (74-99); Non-African American GFR(CKD) >90 (>60 ml/min/1.73 sqM); Potassium 3.7 mmol/L (3.5-5.1); Sodium 133 mmol/L (137-145)
[2024-03-21 06:35] LABS: Glucose,Whole Blood 106 mg/dL (70-110)
--- NOTE | 2024-03-21 07:11 | XR ---
EXAMINATION TYPE: XR chest 1V portable DATE OF EXAM: 03/21/2024 CLINICAL HISTORY: Difficulty breathing progress study. TECHNIQUE: Single AP portable semiupright view of the chest is obtained. COMPARISON: Chest x-ray from one day earlier FINDINGS: Stable endotracheal and orogastric tubes. Stable left-sided central venous catheter. Persistent elevated right hemidiaphragm. Bibasilar opacities are current study. Cardiac silhouette si ze is stable within normal limits. Surgical clips in the right lower neck are redemonstrated. Osseous structures are intact. IMPRESSION: Bibasilar opacities favor atelectasis. [facility], , 03/21/2024 7:08 AM
[2024-03-21] MEDS: POTASSIUM CHLORIDE 20 MEQ in WATER FOR INJECTION 1 100ML.BAG IVPB ONE (08:00)
[2024-03-21] MEDS ORDERED: MAGNESIUM HYDROXIDE 2,400 MG/30 ML CUP PO PRN (08:35)
[2024-03-21] MEDS: HYDROcodone/APAP 5-325MG 1 EACH TAB PO PRN (09:03)
--- NOTE | 2024-03-21 10:20 | P.PN ---
Subjective Principal diagnosis: Hypoxia. Patient is a 48-year-old male with complex past medical history including CVA, previous DVTs, right BKA, cardiac arrest in 2021, Crohn's disease, enterocutaneous fistulas, previous bowel resection, ventilator dependent respiratory failure, previous tracheostomy and reversal. Recently was admitted 12/13/2023 through 12/25/2023 for pneumonia and respiratory failure due to mucous plugging. He was intubated and placed on mechanical ventilator for approximately 6 days. He did have a bronchoscopy with BAL, microbiology positive for haemophilus influenza. Eventually, discharged home, and returned 01/02/24 for GIB from his ostomy. Was reintubated and did spend some time on the ventilator for reccurent pneumonia and mucous plugging. During this time, had multiple bronchoscopies with BAL, once on 12/31/2023 and again on 01/03/2024, isolated organisms including MRSA and Pseudomonas. Patient was eventually discharged back home on 01/16/2024. More recently, patient had an ER visit for increased work of breathing on February 22, and the patient was sent home. Returned for similar symptoms yesterday afternoon. Chest x-ray done on admission showing cardiomegaly with pulmonary vascular congestion and questionable right lower lobe infiltrate or effusion. CBC: WBC count 11.2, hemoglobin 10.5, hematocrit 37.3, platelets 315. CMP: Sodium 138, potassium 4.8, chloride 97, serum bicarb 39, BUN 23, creatinine 0.45, glucose 103. Lactic 1. LFTs unremarkable. Troponin less than 0.012. I am evaluating this patient emergency department, he is currently unresponsive, to even painful stimuli. He is on a 15 L nonrebreather. SpO2 88%. Diminished breath sounds on the right Will place this patient on BiPAP with initial settings 16/5 FiO2 to be titrated accordingly. Will get a stat ABG. We will repeat chest x-ray. I did talk to the patient's son, Alan, he is adamant that the patient remain a full code, would want the patient intubated if necessary. On reassessment in the emergency department, patient remained on BiPAP with settings 16/5 100%. He remains unresponsive to painful stimuli. Now only achieving tidal volumes ranging from 100 to 200 cc. Unfortunately, we were not able to to get an initial blood gas. I recommended that the patient be moved to the trauma bay and intubated by the INFORMATION ANALYST. Follow-up chest x-ray showing the endotracheal tube in appropriate position above the avery. Orogastric tube coursing below the diaphragm. Initial ventilator settings include assist- control, respiratory rate 20, tidal volume 500, FiO2 100%, PEEP of 5. Currently, patient is fairly asynchronous with the ventilator and he is biting the tube. There are copious amounts of blood-tinged sputum in the ET tube. Elevated peak airway pressures of 45. Static pressure 32. The nurses are working on appropriately sedating the patient with propofol. Postintubation, the patie nt did become hypotensive, currently receiving his second liter of normal saline. Will also start the patient on norepinephrine to maintain a MAP of greater than 65 mmHg. I did insert a left femoral arterial line. Following this, we did obtain an ABG showing profound hypercapnic and hypoxic respiratory failure. PaO2 of 89, pCO2 98, pH of 7.11. Appropriate ventilator adjustments were made including increasing the rate to 26 and PEEP can be increased to 8. Patient may eventually need repeat bronchoscopy with BAL. Case will be discussed with Dr. Munoz. Patient is still waiting for a bed in the intensive care unit. I did call and update patient's son Alan about his change in clinical condition. On 03/07/2024, the patient is awake and alert and the patient is currently off propofol. The patient is still on the mechanical ventilator assist-control mode rate of 16, tidal volume of 500, FiO2 50% with a PEEP of 6. Calm and comfortable and breathing comfortable. No significant secretions through the tracheostomy tube. Remains on IV Zosyn. He does have pseudomonal pneumonia for which she is on IV Zosyn based on antibiotic sensitivities. Remains on TPN and this was increased up to 60 cc an hour. Remains on anticoagulation with Lovenox 80 mg subcu every 12 hours. Ileostomy is still active and the patient is producing approximately 1000 cc of gastric output over the past 8 hours. Fluid balance -600 cc over the past 24 hours. White cell count is at 4.9 with a hemoglobin 8.8 and a platelet count of 255. BUN is 10 with a creatinine of 0.4 and the sodium is at 137 and a potassium level is at 4.1. Awake and alert and communicating. Profound weakness of lower extremities along with significant muscle atrophy. On 03/08/2024, the patient is on a T-piece at 40% FiO2. No significant respiratory secretions., Comfortable and awake and communicating. He is asking for some oral intake of food. No respiratory difficulties. Remains on TPN at rate of 60 cc an hour. Ileostomy output has been 1500 over the past 8 hours. Fluid balance is 0. Remains on low-dose norepinephrine 0.04 mcg/kg/min. The white cell count of 5 with a hemoglobin 8.3 and a platelet count of 236. BUN is 8 with a creatinine of 0.37 and sodium levels at 137. He remains on IV Zosyn regarding his pseudomonal pneumonia. Chest x-ray findings are also stable. Patient was evaluated today on 03/09/2024, patient remains on T-piece, at 35% FiO2, seems to be fairly comfortable, does not seem to be in any distress, he is awake, communicating, does not seem to be in distress, still on TPN, 60 mL/h, patient is receiving treatment for pseudomonal infection/pneumonia and he is on Zosyn. Patient is to have a swallow evaluation today and possibly allow oral feeding. His tracheostomy was placed on 03/05, patient is still requiring low- dose norepinephrine at 0.01 mcg/kg/min. Basic metabolic profile is normal, bicarb is 37 BUN is 9 creatinine 0.41 chest x-ray continues show interstitial opacities with slight improvement specially in the right and left basilar areas Patient was evaluated today on 03/10/2024 remains in the ICU remains on T-piece at 28% FiO2 patient passed his swallow evaluation yesterday and now he is allowed to have oral feedings, in the meantime he is on TPN at 85 cc/h he is off norepinephrine since 5 AM this morning. Remains on Zosyn for his pseudomonal infection cough seems to be deflated for him to swallow and tolerate oral diet. Not much has happened in the last 24 hours otherwise. Labs were reviewed WBC count is 4.3 hemoglobin 9.3 basic metabolic profile is normal renal profile is normal Seen today on 03/12/2024, patient is doing well, he is on the medical floor, not in any distress, on 28% trach collar, remains on antibiotics, he is not requiring any pressors, hemodynamically stable, patient has a speaking valve and able to communicate. Denies any specific symptoms.WBC count is 6.2 hemoglobin is 10.1 electrolytes are normal renal profile is normal Patient was evaluated today on 03/13/2024, remains on trach collar, does not seem to be in any distress, WBC count 7.3 hemoglobin 9.3 electrolytes are normal potassium is a bit high at 5.3 renal profile is normal, overall the patient is doing great. Seen today on 03/14/2024, patient is doing well, being fed by his mother at bedside, patient is asymptomatic otherwise. Trach collar remains in place, patient is tolerating trach collar well, hardly any cough no wheezing no shortness of breath no chest pain no fever no chills no hemoptysis.Labs from today including basic metabolic profile noted and basically unremarkable on 03/15/2024, patient is basically about the same. Patient is laying in bed, being fed by his mother, tolerating feeding quite well, does not seem to be in any distress, continues to have trach collar in place, overall the patient is doing great, and eventually needs to be discharged home.WBC count 6.5 hemoglobin 10.2 basic metabolic profile is normal and renal profile is normal Progress note dated March 16, 2024. 48-year-old male who is now been here in the hospital for 20 days. The patient is seen today in room 367. The patient is on 35% trach collar. The patient is receiving IV Zosyn, and TPN at 45 cc an hour. The patient is laying nearly flat in bed. In no distress whatsoever. Current laboratory data includes a sodium 137, potassium 4.4, chlorides 103, CO2 23, BUN 22, creatinine 0.46. Glucose is 128. Calcium 10.1, phosphorus 3.0, magnesium 1.9. Bronchoscopy, with BAL, on March 02, revealed evidence of Pseudomonas aeruginosa, which was also discovered in his sputum, on February 25. Progress note dated March 17, 2024. 48-year-old male who was seen today in room 256. The patient was on the medical floor, and a rapid response was called on this patient, for respiratory distress. The respiratory therapist on the floor, could not ventilate the patient, despite using a [id number] device, and his saturations were in the 80s, so the patient was moved to the intensive care unit, for further monitoring and management. There, with the aid of the glide scope, the patient was orally intubated, as a tracheostomy tube, was removed. The patient was connected to the ventilator. He was sedated with propofol, and received some Nimbex for paralysis. Next, the patient underwent bronchoscopy, to evaluate the respiratory tract. There were thick secretions noted throughout, we did a BAL, of the right lung. 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 In addition to intubation, and bronchoscopy, the patient had a central line placed and a arterial line placed. Current labs include a white count 7.2, hemoglobin 9.1, hematocrit 38.8, platelet count 3 years 70,000. Blood gases show pO2 108, pCO2 of 54, pH is 7.30. The rate on the ventilator was increased to 28, and the PEEP was increased to 8, with orders to titrate the FiO2 down. Sodium 136, potassium 4.8, chlorides 103, CO2 24, BUN 21, creatinine 0.45. Chest x-ray shows endotracheal tube to be about 5 cm above the tracheal avery. There is a left lower lobe infiltrate. Progress note dated March 18, 2024. 48-year-old male who is seen today in room 256. Patient remains intubated, vent settings AC, rate 28, tidal volume 450, PEEP 8, FiO2 40 %. Blood gases show p.o. 266, pCO2 of 43, and pH 7.38. Sodium 136, potassium 4, chloride 103, CO2 21, BUN 20, creatinine 0.52. Chest x-ray shows mild atelectasis developing in the right diaphragm and endotracheal tube tip is 6.4 cm above the avery. Left central venous catheter tip is in the distal superior vena cava proximal right atrium. NG tube transverses the thorax. Progress note dated March 19, 2024. 48-year-old male who is seen in room 256. Overnight patient's occlusive bandaging around previous tracheostomy site came loose during his bath and copious amounts of secretions were seen coming out. Patient remains intubated, vent settings AC, respiratory rate 28, tidal volume 450, FiO2 30%, and PEEP 8. Blood gases show O2 of 126, CO2 39, and pH 7.42. CBC: WBC 6.7, hemoglobin 8.9, hematocrit 29.2, platelet count 304. CMP: Sodium 134, potassium 3.5, chloride 102, BUN 15, creatinine 0.48, AST 29, and ALT 59. Chest x-ray shows retrocardiac infiltrate, endotracheal tube tip is 6.6 cm above the avery. NG tube transverses the thorax. Progress note dated March 20, 2024. 48-year-old man who was seen in room 256. Overnight patient was initially accepted to [facility], EMS arrived, but a phone call came in from [facility] stating they did not have an code clerk so cannot excepted for transfer. We will now need to restart the process with Jamarcus Iniguez and Prakash and see if capacity has changed. Vent settings: AC, respiratory rate 28, tidal volume 450, FiO2 30%, PEEP 8. ABG: pH 7.46, CO2 36, and O2 85. Patient has been off levo since 1800 yesterday. Zosyn 100 mL IVPB Q8 HR (day 6), LR 75cc/h. CBC: WBC 5.8, hemoglobin 8.5, platelet count 242. CMP sodium 134, potassium 3.4, chloride 102, creatinine 0.43. Chest x-ray shows endotracheal tube 5 cm above the avery. Retrocardiac infiltrate from prior appears improved. Progress note dated March 21, 2024. 48-year-old man who was seen in room 256. Vent settings: AC, respiratory rate of 28, tidal 450, FiO2 30, peep 8. ABG: pH 7.52, pCO2 38, O2 84. CBC: WBC 5, hemoglobin 8.2, platelet count 266. CMP: Sodium 133, potassium 3.7, BUN 10, creatinine 0.43, and glucose 103. LR running at 75 cc/h, day 7 of Zosyn, propofol 55mcg/kg/min, TPN 30.75 ml/min. Chest x-ray shows bibasilar opacities with atelectasis. ROS: Cannot be assessed Pertinent imaging and labs reviewed. Physical examination: Sedated, currently paralyzed, with an orally placed endotracheal tube. Tracheostomy tube has been removed. HEENT examination is grossly unremarkable. Mucous membranes are moist. No oral lesions. Neck supple. Full range of motion. No adenopathy thyromegaly or neck vein distention. Cardiovascular examination reveals regular rhythm rate. S1-S2 normal. No S3 or S4. No discernible murmur noted. Lungs reveal coarse bilateral rhonchi. Breath sounds are equal. No wheezes or crackles. Abdomen soft, nontender, with functioning ileostomy. The patient also has an enterocutaneous fistula over the anterior abdominal wall. Extremities are intact. No cyanosis clubbing or edema. Right BKA. Skin is without rash or lesion. Neurologic examination is unable to be evaluated at this time. Assessment: Acute respiratory failure, with inability to oxygenate or ventilate this patient, status post oral placement of an endotracheal tube, with removal of the tracheostomy tube, March 17, 2024. Acute hypoxemic and hypercapnic respiratory failure, requiring intubation and mechanical ventilation on February 26, 2024. S/P tracheostomy on March 05, 2024. Pseudomonas aeruginosa pneumonia. 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 Sepsis/septic shock, secondary to Pseudomonas pneumonia. Crohn's disease, status post bowel perforation, colectomy, and diverting ileostomy. TPN for nutritional support. Profound electrolyte imbalance. Tracheobronchomalacia. History of DVT. History of CVA/TIA, with residual left-sided weakness. Right BKA. History of asystole, 2021. Plan: Plan dated March 16, 2024. The patient was seen today in room 367. He is currently on 35% trach collar. He is getting TPN at 45 cc an hour. For his Pseudomonas infection, he continues on Zosyn. Labs, x-rays, and all medications are reviewed. The patient had a repeat tracheostomy performed on this admission. Apparently he had developed some tracheal stenosis from his previous tracheostomy. We are looking back to see whether or not we can identify whether or not there was some sort of defect or abnormality or tracheal flap noted on previous bronchoscopy. Prognosis is guarded. Plan dated March 17, 2024. The patient was transferred to the intensive care unit. There, we could not ventilate or oxygenate the patient, it was very difficult to bag the patient. Hence, the patient was orally intubated, using the glide scope. #8 endotracheal tube was placed. In addition, the tracheostomy tube was removed. Central line and arterial line were placed. The patient was sedated with propofol and paralyzed with Nimbex. Labs, x-rays, medications are reviewed. Because of the patient's tracheal stenosis, I believe the patient would best served to be transferred to [facility], or a similar institution. Additional recommendations and suggestions are forthcoming. Labs, x-rays, and medications are reviewed. We did notify the primary service of our desire to transfer this patient. Plan dated March 18, 2024. The patient was seen today in the intensive care unit. On chest x-ray endotracheal tube seen 6.4 cm above the avery and RT moved ET tube closer so that it would be within 3 to 4 cm above the avery. Primary team has been notified of our desire to transfer this patient due to the high complexity of his case and tracheal stenosis. Patient still awaiting bed at an accepting hospital. Remains on LR 75 cc/h, Zosyn 100 mL IVPB Q8 HR, propofol 1000 Mg IV 15 mcg/kg/min. Additional recommendations and suggestions are forthcoming. Labs, x-rays, and medications are reviewed. Prognosis is guarded. Plan dated March 19, 2024. Patient seen today in the intensive care unit. On chest x-ray endotracheal tube seen 6.6 cm above the avery and RT moved to ET tube closer so that it would be within 3 to 4 cm above the avery. Patient's oxygen level on ABG continues to remain high, adjusted FiO2 decreased from 40% to 30% this morning. Patient still pending bed at accepting hospital for transfer. Remains on LR 75 cc/h, Zosyn 100 mL IVPB Q8 HR (day 5), propofol 1000 mg IV 15 mcg/kg/min, tpn 30, levo 1.8 mcg/mg. Additional recommendations and suggestions are forthcoming. Labs, x-rays, and medications are reviewed. Prognosis is guarded. Plan dated March 20, 2024. Patient seen today intensive care unit. Patient still awaiting transfer to accepting hospital due to tracheal stenosis, was denied yesterday from [facility]. Chest x-ray from today appears improved in terms of infiltrates compared to yesterday. Patient remains off levo since 1800 yesterday. Documented Pseudomonas infection, continue Zosyn 100 mL IVPB Q8 HR (day 7). Patient is getting TPN at 30 cc/h. Additional recommendations and suggestions are forthcoming. Labs, x-rays, and medications are reviewed. Prognosis is guarded. Plan dated March 21, 2024. Patient seen today in intensive care unit. Patient continues to await transfer to accepting hospital for tracheal stenosis, previously denied from [facility], no likely transfer till Saturday (03/23). Patient remains on volume assist control with the same settings as the previous day. ABG indicates a mixed respiratory and metabolic alkalosis. Continue potassium replacement protocol. There was a concern about urinary output, but yesterday patient had output of 3.5 L and his weight decreased by 3.7 kg. Additional recommendations and suggestions are forthcoming. Labs, x-rays, and medications are reviewed. Prognosis is guarded. Objective - Vital Signs Vital signs: Vital Signs Temp 98.4 F 03/21/24 04:00 Pulse 70 03/21/24 07:00 Resp 28 H 03/21/24 07:00 BP 117/58 03/20/24 18:30 Pulse Ox 99 03/21/24 07:00 FiO2 30 03/21/24 04:14 Intake & Output 03/20/24 03/21/24 03/21/24 18:59 06:59 18:59 Intake Total 2145.031 9983.14 78 Output Total 2790 4135 840 Balance -793.122 -2774.86 -762 Weight 92.5 kg Intake: IV 1561 961 78 3cc/hr Lorrie 36 36 3 Lactated Ringers 1,000 ml 900 900 75 @ 75 mls/hr IV .[id number] ANNIE Rx#:[id number] Mvi, Adult No.4 with Vit 90 K 10 ml Trace (Conc-1Ml/ Dose) 1 ml Sodium Acetate 40 meq Potassium Acetate 40 meq Calcium Gluconate 1 gm Magnesium Sulfate gm 1.5 gm Potassium Phosphate 24 mmol In Amino Acids 5 %/Dextrose 20 % 1,000 ml @ 30 mls/hr IV .Q24H ANNIE Rx#: [id number] Mvi, Adult No.4 with Vit 360 K 10 ml Trace (Conc-1Ml/ Dose) 1 ml Sodium Chloride 4Meq/ml Vial 56 meq Potassium Acetate 10 meq Calcium Gluconate 1 gm Magnesium Sulfate gm 1 .25 gm Sodium Phosphate 21 mmol In Amino Acids 5 %/Dextrose 20 % 1,000 ml @ 45 mls/hr IV .[id number] ANNIE Rx#:[id number] Piperacillin-Tazobactam 3 175 25 .375 gm In Sodium Chloride 0.9% 100 ml @ 25 mls/hr IVPB Q8HR [facility]IE Rx# :[id number] Intake, IV Titration 335.878 399.14 Amount Piperacillin-Tazobactam 3 100 .375 gm In Sodium Chloride 0.9% 100 ml @ 25 mls/hr IVPB Q8HR [facility] Rx# :[id number] propofoL 1,000 mg In 335.878 299.14 Empty Bag 1 bag @ 15 MCG/ KG/MIN 8.235 mls/hr IV . [id number] [facility] Rx#:[id number] Oral 100 Output: Urine 290 535 40 Stool 2500 3600 800 Other: Voiding Method Indwelling Catheter Indwelling Catheter ABP, PAP, CO, CI - Last Documented Arterial Blood Pressure 129/64 - Labs CBC & Chem 7: 03/21/24 05:15 03/21/24 05:15 Labs: Abnormal Lab Results - Last 24 Hours (Table) 03/21/24 03/21/24 03/21/24 Range/Units 05:15 05:15 05:47 RBC 3.35 L (4.30-5.90) m/uL Hgb 8.2 L (13.0-17.5) gm/dL Hct 27.6 L (39.0-53.0) % MCH 24.5 L (25.0-35.0) pg MCHC 29.7 L (31.0-37.0) g/dL RDW 16.1 H (11.5-15.5) % ABG pH 7.52 H (7.35-7.45) ABG pCO2 30 L (35-45) mmHg ABG Total CO2 26 H (19-24) mmol/L ABG O2 Saturation 98.3 H (94-97) % Hemoglobin 7.8 L (13.0-17.5) gm/dL Sodium 133 L (137-145) mmol/L Creatinine 0.43 L (0.66-1.25) mg/dL Glucose 103 H (74-99) mg/dL
[2024-03-21 11:41] LABS: Glucose,Whole Blood 101 mg/dL (70-110)
--- NOTE | 2024-03-21 14:18 | P.PN ---
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 Tracheostomy has been removed the patient has been intubated and transferred back to the ICU. On today's visit that is 03/20/2024, the patient continues to be afebrile, the patient is on ventilator FiO2 is currently stable at 30% no significant purulent secretions in the ET following the change reported patient not requiring any pressor support. Patient white count is 5.8, creatinine 0.43 Objective - Vital Signs Vital signs: Vital Signs Temp 98.1 F 03/20/24 10:15 Pulse 68 03/20/24 12:14 Resp 30 H 03/20/24 11:15 BP 117/58 03/19/24 18:30 Pulse Ox 97 03/20/24 11:15 FiO2 30 03/20/24 12:07 Intake & Output 03/19/24 03/20/24 03/20/24 18:59 06:59 18:59 Intake Total 4712.383 6249.011 936.429 Output Total 1345 1025 120 Balance 234.640 245.011 816.429 Weight 94.9 kg 96.2 kg Intake: IV 1136 936 670 3cc/hr [place] 36 36 15 Lactated Ringers 1,000 ml 900 900 375 @ 75 mls/hr IV .[id number] [facility] Rx#:[id number] Mvi, Adult No.4 with Vit 180 K 10 ml Trace (Conc-1Ml/ Dose) 1 ml Sodium Chloride 4Meq/ml Vial 56 meq Potassium Acetate 10 meq Calcium Gluconate 1 gm Magnesium Sulfate gm 1 .25 gm Sodium Phosphate 21 mmol In Amino Acids 5 %/Dextrose 20 % 1,000 ml @ 45 mls/hr IV .[id number] [facility] Rx#:[id number] Piperacillin-Tazobactam 3 200 100 .375 gm In Sodium Chloride 0.9% 100 ml @ 25 mls/hr IVPB Q8HR [facility] Rx# :[id number] Intake, IV Titration 443.640 334.011 166.429 Amount Magnesium Sulfate-D5w Pmx 100 1 gm In Dextrose/Water 1 100ml.bag @ 100 mls/hr IVPB ONCE ONE Rx#: [id number] Norepinephrine 8 mg In 63.120 Sodium Chloride 0.9% 250 ml @ 0.03 MCG/KG/MIN 5. 312 mls/hr IV .Q24H [facility] Rx#:[id number] propofoL 1,000 mg In 280.52 334.011 166.429 Empty Bag 1 bag @ 15 MCG/ KG/MIN 8.235 mls/hr IV . Q12H9M [facility] Rx#:[id number] Oral 100 Output: Urine 395 375 120 Stool 950 650 Other: Voiding Method Indwelling Catheter Indwelling Catheter ABP, PAP, CO, CI - Last Documented Arterial Blood Pressure 109/46 - Exam GENERAL DESCRIPTION: Middle-age man intubated on the vent RESPIRATORY SYSTEM: Unlabored breathing , decreased intensity of breath sounds HEART: S1 S2 regular rate and rhythm , ABDOMEN: Soft , no tenderness - Labs CBC & Chem 7: 03/21/24 05:15 03/21/24 05:15 Labs: Abnormal Lab Results - Last 24 Hours (Table) 03/19/24 03/20/24 03/20/24 Range/Units 17:25 00:43 04:44 RBC (4.30-5.90) m/uL Hgb (13.0-17.5) gm/dL Hct (39.0-53.0) % MCHC (31.0-37.0) g/dL RDW (11.5-15.5) % ABG pH (7.35-7.45) ABG pO2 81 L (83-108) mmHg ABG HCO3 27 H (21-25) mmol/L ABG Total CO2 28 H (19-24) mmol/L ABG O2 Saturation (94-97) % Hemoglobin 8.6 L (13.0-17.5) gm/dL Sodium 134 L (137-145) mmol/L Potassium 3.4 L (3.5-5.1) mmol/L Creatinine 0.43 L (0.66-1.25) mg/dL Glucose 113 H (74-99) mg/dL POC Glucose (mg/dL) 115 H (70-110) mg/dL 03/20/24 03/20/24 03/20/24 Range/Units 04:44 04:46 05:53 RBC 3.38 L (4.30-5.90) m/uL Hgb 8.5 L (13.0-17.5) gm/dL Hct 27.9 L (39.0-53.0) % MCHC 30.3 L (31.0-37.0) g/dL RDW 16.3 H (11.5-15.5) % ABG pH 7.46 H (7.35-7.45) ABG pO2 (83-108) mmHg ABG HCO3 26 H (21-25) mmol/L ABG Total CO2 27 H (19-24) mmol/L ABG O2 Saturation 97.8 H (94-97) % Hemoglobin 8.1 L (13.0-17.5) gm/dL Sodium (137-145) mmol/L Potassium (3.5-5.1) mmol/L Creatinine (0.66-1.25) mg/dL Glucose (74-99) mg/dL POC Glucose (mg/dL) 115 H (70-110) mg/dL Microbiology - Last 24 Hours (Table) 03/17/24 11:15 Gram Stain - Final Bronchoalviolar Lavage - Right Bronchial Washings Culture - Final Pseudomonas aeruginosa 03/17/24 11:15 Acid Fast Bacilli Smear - Preliminary Bronchoalviolar Lavage - Right Assessment and Plan (1) Pneumonia Current Visit: No Status: Acute Code(s): J18.9 - PNEUMONIA, UNSPECIFIED ORGANISM SNOMED Code(s): 022317114 (2) Sepsis Current Visit: No Status: Acute Code(s): A41.9 - SEPSIS, UNSPECIFIED ORGANISM SNOMED Code(s): 47650081 Plan: 1patient presented to hospital with sepsis in this patient who did have a low- grade fever elevated white count tachycardia meeting criteria for SIRS source likely pneumonia at this patient presenting with increasing shortness of breath cough with evidence of right-sided infiltrate, patient has been admitted to the hospital and will need to cover for resistant gram-positive as well as gram- negative 2-patient is status post bronchoscopy and lavage completed on 03/02/2024 cultures currently growing Pseudomonas that is resistant to cefepime, with repeat bronchoscopy on 03/17/2024 and grew Pseudomonas again sensitive to Zosyn 3-patient currently being treated with the Zosyn and monitor clinical course closely, possibly waiting for transfer to [facility] at the bedside question answered Dictation was produced using [employer] dictation software. please excuse any grammatical, word or spelling errors. Time with Patient: Less than 30
--- NOTE | 2024-03-21 14:19 | P.PN ---
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 Tracheostomy has been removed the patient has been intubated and transferred back to the ICU. On today's visit that is 03/21/2024, patient remains to be afebrile, the patient remains to be intubated on the ventilator FiO2 is currently at 30% no purulent secretion through the ET, patient not requiring any pressor support. Patient white count is 5.0, creatinine 0.43 Objective - Vital Signs Vital signs: Vital Signs Temp 98.5 F 03/21/24 12:00 Pulse 72 03/21/24 14:00 Resp 28 H 03/21/24 14:00 BP 117/58 03/21/24 10:30 Pulse Ox 98 03/21/24 14:00 FiO2 30 03/21/24 12:00 Intake & Output 03/20/24 03/21/24 03/21/24 18:59 06:59 18:59 Intake Total 5969.012 8482.14 933.513 Output Total 2790 4135 1095 Balance -793.122 -2774.86 -161.487 Weight 92.5 kg Intake: IV 1561 961 724 3cc/hr [place] 36 36 24 Lactated Ringers 1,000 ml 900 900 600 @ 75 mls/hr IV .[id number] [facility] Rx#:[id number] Mvi, Adult No.4 with Vit 90 K 10 ml Trace (Conc-1Ml/ Dose) 1 ml Sodium Acetate 40 meq Potassium Acetate 40 meq Calcium Gluconate 1 gm Magnesium Sulfate gm 1.5 gm Potassium Phosphate 24 mmol In Amino Acids 5 %/Dextrose 20 % 1,000 ml @ 30 mls/hr IV .Q24H [facility] Rx#: [id number] Mvi, Adult No.4 with Vit 360 K 10 ml Trace (Conc-1Ml/ Dose) 1 ml Sodium Chloride 4Meq/ml Vial 56 meq Potassium Acetate 10 meq Calcium Gluconate 1 gm Magnesium Sulfate gm 1 .25 gm Sodium Phosphate 21 mmol In Amino Acids 5 %/Dextrose 20 % 1,000 ml @ 45 mls/hr IV .[id number] [facility] Rx#:[id number] Piperacillin-Tazobactam 3 175 25 100 .375 gm In Sodium Chloride 0.9% 100 ml @ 25 mls/hr IVPB Q8HR [facility] Rx# :[id number] Intake, IV Titration 335.878 399.14 179.513 Amount Piperacillin-Tazobactam 3 100 .375 gm In Sodium Chloride 0.9% 100 ml @ 25 mls/hr IVPB Q8HR [facility] Rx# :[id number] propofoL 1,000 mg In 335.878 299.14 179.513 Empty Bag 1 bag @ 15 MCG/ KG/MIN 8.235 mls/hr IV . Q12H9M [facility] Rx#:[id number] Oral 100 Other 30 Output: Gastric Drainage 50 Urine 290 535 245 Stool 2500 3600 800 Other: Voiding Method Indwelling Catheter Indwelling Catheter Indwelling Catheter ABP, PAP, CO, CI - Last Documented Arterial Blood Pressure 118/55 - Exam GENERAL DESCRIPTION: Middle-age man intubated on the vent RESPIRATORY SYSTEM: Unlabored breathing , decreased intensity of breath sounds HEART: S1 S2 regular rate and rhythm , ABDOMEN: Soft , no tenderness - Labs CBC & Chem 7: 03/21/24 05:15 03/21/24 05:15 Labs: Abnormal Lab Results - Last 24 Hours (Table) 03/21/24 03/21/24 03/21/24 Range/Units 05:15 05:15 05:47 RBC 3.35 L (4.30-5.90) m/uL Hgb 8.2 L (13.0-17.5) gm/dL Hct 27.6 L (39.0-53.0) % MCH 24.5 L (25.0-35.0) pg MCHC 29.7 L (31.0-37.0) g/dL RDW 16.1 H (11.5-15.5) % ABG pH 7.52 H (7.35-7.45) ABG pCO2 30 L (35-45) mmHg ABG Total CO2 26 H (19-24) mmol/L ABG O2 Saturation 98.3 H (94-97) % Hemoglobin 7.8 L (13.0-17.5) gm/dL Sodium 133 L (137-145) mmol/L Creatinine 0.43 L (0.66-1.25) mg/dL Glucose 103 H (74-99) mg/dL Assessment and Plan (1) Pneumonia Current Visit: No Status: Acute Code(s): J18.9 - PNEUMONIA, UNSPECIFIED ORGANISM SNOMED Code(s): 161490892 (2) Sepsis Current Visit: No Status: Acute Code(s): A41.9 - SEPSIS, UNSPECIFIED ORGANI SM SNOMED Code(s): 76656013 Plan: 1patient presented to hospital with sepsis in this patient who did have a low- grade fever elevated white count tachycardia meeting criteria for SIRS source likely pneumonia at this patient presenting with increasing shortness of breath cough with evidence of right-sided infiltrate, patient has been admitted to the hospital and will need to cover for resistant gram-positive as well as gram- negative 2-patient is status post bronchoscopy and lavage completed on 03/02/2024 cultures currently growing Pseudomonas that is resistant to cefepime, with repeat bronchoscopy on 03/17/2024 and grew Pseudomonas again sensitive to Zosyn 3-patient remains to be afebrile white count has been normal, continue with the Zosyn and monitor clinical course closely Mother at the bedside question answered Dictation was produced using [employer] dictation software. please excuse any grammatical, word or spelling errors. Time with Patient: Less than 30
[2024-03-21] MEDS: HYDROmorphone 1 MG/ML 1 ML SYRINGE IVP PRN (15:59)
[2024-03-21] MEDS: MVI, ADULT NO.4 WITH VIT K 10 ML, TRACE (CONC-1ML/DOSE) 1 ML, SODIUM CHLORIDE 4MEQ/ML V... IV SCH (16:54)
[2024-03-21 17:42] LABS: Glucose,Whole Blood 103 mg/dL (70-110)
--- NOTE | 2024-03-21 19:12 | P.PN ---
Subjective Progress Note Date: 03/21/24 Patient is eval today in the intensive care unit. Patient remains intubated and on mechanical ventilator. Tracheostomy has dressing over it. No plans for transfer at this time he was denied at [facility] in [facility] secondary to wait list for transfer. Additionally multiple other hospitals have refused transfer. Surgery with plans for extra long trach insertion. Patient states that he is having generalized pain and also significant discomfort in his throat IV Dilaudid was increased to every 2 hours. He remains on IV Solu-Cortef. He remains on TPN lipids. Patient is been off of vasopressor support. He continues on IV Zosyn. Chest x-ray today reveals bibasilar opacities favor atelectasis. He remains afebrile. Review of Systems Constitutional: Denied any fatigue denied any fever. Cardio vascular: denied any chest pain, palpitations Gastrointestinal: denied any nausea, vomiting, diarrhea Pulmonary: Denied any shortness of breath cough Reports sore throat Neurologic denied any new focal deficits All inpatient medications were reviewed and appropriate changes in these medications as dictated in the interval history and assessment and plan. PHYSICAL EXAMINATION: GENERAL: The patient is alert and oriented x3, not in any acute distress. Well developed, well nourished. Intubated. Tracheostomy covered with dressing. HEENT: Pupils are round and equally reacting to light. EOMI. No scleral icterus. No conjunctival pallor. Normocephalic, atraumatic. No pharyngeal erythema. No thyromegaly. CARDIOVASCULAR: S1 and S2 present. No murmurs, rubs, or gallops. PULMONARY: Chest is clear to auscultation, no wheezing or crackles. ABDOMEN: Soft, nontender, nondistended, normoactive bowel sounds. No palpable organomegaly. Central abdominal wound with similar to colostomy bag in place connected to fecal management system MUSCULOSKELETAL: No joint swelling or deformity. EXTREMITIES: No cyanosis, clubbing, or pedal edema. NEUROLOGICAL: Gross neurological examination did not reveal any focal deficits. Diffuse weakness. Contractures on hands bilaterally. SKIN: No rashes. 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 ID team on the case. Will keep trying to transfer the patient to tertiary care center, patient was already been rejected by [facility] and [facility]. Some other options include [facility] and [facility] who had full capacity in the last few days that this might change later General surgery with plans for extra long trach placement Continue with TPN Continue with IV hydrocortisone 50 mg 3 times daily Continue with IV fluid Ringer lactate Continue therapeutic dose of Lovenox 80 mg twice daily. Pulmonary team consulted on the case Infectious disease and general surgery team consult The impression and plan of care has been dictated by Coral Medina, Nurse Practitioner as directed. Dr. Mo MD I have performed a history and physical examination and medical decision making of this patient, discussed the same with the dictator, and agree with the dictators assessment and plan as written, documented as a scribe. Based on total visit time, I have performed more than 50% of this visit. Plan Objective - Vital Signs Vital signs: Vital Signs Temp 99 F 03/21/24 16:00 Pulse 71 03/21/24 18:00 Resp 30 H 03/21/24 18:00 BP 117/58 03/21/24 10:30 Pulse Ox 98 03/21/24 18:00 FiO2 30 03/21/24 16:00 Intake & Output 03/20/24 03/21/24 03/21/24 18:59 06:59 18:59 Intake Total 2121.155 9301.14 1740.124 Output Total 2790 4135 1260 Balance -793.122 -2774.86 480.124 Weight 92.5 kg Intake: IV 5046 610 9399 3cc/hr [place] 36 36 36 Lactated Ringers 1,000 ml 900 900 900 @ 75 mls/hr IV .[id number] [facility] Rx#:[id number] Mvi, Adult No.4 with Vit 90 K 10 ml Trace (Conc-1Ml/ Dose) 1 ml Sodium Acetate 40 meq Potassium Acetate 40 meq Calcium Gluconate 1 gm Magnesium Sulfate gm 1.5 gm Potassium Phosphate 24 mmol In Amino Acids 5 %/Dextrose 20 % 1,000 ml @ 30 mls/hr IV .Q24H [facility] Rx#: [id number] Mvi, Adult No.4 with Vit 60 K 10 ml Trace (Conc-1Ml/ Dose) 1 ml Sodium Chloride 4Meq/ml Vial 100 meq Potassium Acetate 40 meq Calcium Gluconate 1 gm Magnesium Sulfate gm 1 .5 gm Sodium Phosphate 21 mmol In Amino Acids 5 %/ Dextrose 20 % 1,000 ml @ 30 mls/hr IV .Q24H [facility] Rx #:[id number] Mvi, Adult No.4 with Vit 360 K 10 ml Trace (Conc-1Ml/ Dose) 1 ml Sodium Chloride 4Meq/ml Vial 56 meq Potassium Acetate 10 meq Calcium Gluconate 1 gm Magnesium Sulfate gm 1 .25 gm Sodium Phosphate 21 mmol In Amino Acids 5 %/Dextrose 20 % 1,000 ml @ 45 mls/hr IV .[id number] [facility] Rx#:[id number] Piperacillin-Tazobactam 3 175 25 200 .375 gm In Sodium Chloride 0.9% 100 ml @ 25 mls/hr IVPB Q8HR [facility] Rx# :[id number] Intake, IV Titration 335.878 399.14 514.124 Amount Mvi, Adult No.4 with Vit 240 K 10 ml Trace (Conc-1Ml/ Dose) 1 ml Sodium Chloride 4Meq/ml Vial 100 meq Potassium Acetate 40 meq Calcium Gluconate 1 gm Magnesium Sulfate gm 1 .5 gm Sodium Phosphate 21 mmol In Amino Acids 5 %/ Dextrose 20 % 1,000 ml @ 30 mls/hr IV .Q24H [facility] Rx #:[id number] Piperacillin-Tazobactam 3 100 .375 gm In Sodium Chloride 0.9% 100 ml @ 25 mls/hr IVPB Q8HR [facility] Rx# :[id number] propofoL 1,000 mg In 335.878 299.14 274.124 Empty Bag 1 bag @ 15 MCG/ KG/MIN 8.235 mls/hr IV . Q12H9M [facility] Rx#:[id number] Oral 100 Other 30 Output: Gastric Drainage 50 Urine 290 535 410 Stool 2500 3600 800 Other: Voiding Method Indwelling Catheter Indwelling Catheter Indwelling Catheter ABP, PAP, CO, CI - Last Documented Arterial Blood Pressure 139/58 - Labs CBC & Chem 7: 03/21/24 05:15 03/21/24 05:15 Labs: Abnormal Lab Results - Last 24 Hours (Table) 03/21/24 03/21/24 03/21/24 Range/Units 05:15 05:15 05:47 RBC 3.35 L (4.30-5.90) m/uL Hgb 8.2 L (13.0-17.5) gm/dL Hct 27.6 L (39.0-53.0) % MCH 24.5 L (25.0-35.0) pg MCHC 29.7 L (31.0-37.0) g/dL RDW 16.1 H (11.5-15.5) % ABG pH 7.52 H (7.35-7.45) ABG pCO2 30 L (35-45) mmHg ABG Total CO2 26 H (19-24) mmol/L ABG O2 Saturation 98.3 H (94-97) % Hemoglobin 7.8 L (13.0-17.5) gm/dL Sodium 133 L (137-145) mmol/L Creatinine 0.43 L (0.66-1.25) mg/dL Glucose 103 H (74-99) mg/dL Assessment and Plan Time with Patient: Less than 30
[2024-03-22 00:25] LABS: Glucose,Whole Blood 102 mg/dL (70-110)
--- NOTE | 2024-03-22 01:30 | P.PN ---
Progress Note - Text Progress Note Date: 03/21/24 CHIEF COMPLAINT: Respiratory failure HISTORY OF PRESENT ILLNESS: Patient remains in ICU. Patient had to be reintubated and tracheostomy tube was removed at that time. Afebrile. PHYSICAL EXAM: VITAL SIGNS: Reviewed. GENERAL: No acute distress HEENT: Prior tracheostomy site covered with gauze and compression dressing ASSESSMENT: 1. Acute hypoxic respiratory failure. Patient status post removal of tracheostomy tube March 17, 2024 and reintubated. 2. History of tracheal stenosis PLAN: -Continue to wean vent settings. Once vent settings at minimal, patient may benefit from returning to OR and placement of XLT trach -If unable to wean vent or unsuccessful with placement of XLT trach, recommend transfer to tertiary care center with ENT coverage -[facility] [phone]
[2024-03-22 05:35] LABS: Glucose,Whole Blood 103 mg/dL (70-110)
[2024-03-22 05:42] LABS: ABG Base Excess 1.3 mmol/L; ABG HCO3 24 mmol/L (21-25); ABG Oxygen Saturation 98.5 % (94-97); ABG PCO2 29 mmHg (35-45); ABG PH 7.52 (7.35-7.45); ABG PO2 92 mmHg (83-108); ABG TCO2 25 mmol/L (19-24); Allen Test Performed? Yes
[2024-03-22 05:44] LABS: Anisocytosis Slight; Basophils % (A) 0 %; Eosinophils % (A) 1 %; HCT 27.7 % (39.0-53.0); HGB 8.3 gm/dL (13.0-17.5); Hypochromasia Marked; Lymphocytes # (A) 1.6 k/uL (1.0-4.8); Lymphocytes % (A) 29 %; MCH 24.8 pg (25.0-35.0); MCHC 30.1 g/dL (31.0-37.0); MCV 82.4 fL (80.0-100.0); Mean Platelet Volume 10.9; Monocytes # (A) 0.3 k/uL (0-1.0); Monocytes % (A) 6 %; Neutrophils # (A) 3.4 k/uL (1.3-7.7); Neutrophils % (A) 63 %; Platelet Count 261 k/uL (150-450); Poikilocytosis Slight; RBC 3.36 m/uL (4.30-5.90); RDW 16.3 % (11.5-15.5); WBC 5.5 k/uL (3.8-10.6)
[2024-03-22 06:04] LABS: African American GFR (CKD) >90 (>60 ml/min/1.73 sqM); Anion Gap 7 mmol/L; Blood Urea Nitrogen 8 mg/dL (9-20); Calcium 8.7 mg/dL (8.4-10.2); Carbon Dioxide 22 mmol/L (22-30); Chloride 104 mmol/L (98-107); Glucose 102 mg/dL (74-99); Magnesium 1.9 mg/dL (1.6-2.3); Non-African American GFR(CKD) >90 (>60 ml/min/1.73 sqM); Potassium 3.5 mmol/L (3.5-5.1); Sodium 133 mmol/L (137-145)
--- NOTE | 2024-03-22 07:02 | XR ---
EXAMINATION TYPE: XR chest 1V portable DATE OF EXAM: 03/22/2024 CLINICAL HISTORY: Difficulty breathing progress study. TECHNIQUE: Single AP portable semiupright view of the chest is obtained. COMPARISON: Chest x-ray from one day earlier FINDINGS: Stable endotracheal and orogastric tubes. Stable left-sided central venous catheter. Persistent elevated right hemidiaphragm. Persistent bibasilar opacities. Cardiac silhouette size is s table and upper limits of normal. Surgical clips in the right lower neck are redemonstrated. Osseous structures are intact. IMPRESSION: Bibasilar acute infiltrates and/or atelectasis and likely small to tiny bilateral pleural effusions remain present. [facility], , 03/22/2024 7:00 AM
[2024-03-22] MEDS: POTASSIUM CHLORIDE 20 MEQ in WATER FOR INJECTION 1 100ML.BAG IVPB SCH (08:25)
--- NOTE | 2024-03-22 11:51 | P.PN ---
Subjective Progress Note Date: 03/22/24 Patient is a 48-year-old male with complex past medical history including CVA, previous DVTs, right BKA, cardiac arrest in 2021, Crohn's disease, enterocutaneous fistulas, previous bowel resection, ventilator dependent respiratory failure, previous tracheostomy and reversal. Recently was admitted 12/13/2023 through 12/25/2023 for pneumonia and respiratory failure due to mucous plugging. He was intubated and placed on mechanical ventilator for approximately 6 days. He did have a bronchoscopy with BAL, microbiology positive for haemophilus influenza. Eventually, discharged home, and returned 01/02/24 for GIB from his ostomy. Was reintubated and did spend some time on the ventilator for reccurent pneumonia and mucous plugging. During this time, had multiple bronchoscopies with BAL, once on 12/31/2023 and again on 01/03/2024, isolated organisms including MRSA and Pseudomonas. Patient was eventually discharged back home on 01/16/2024. More recently, patient had an ER visit for increased work of breathing on February 22, and the patient was sent home. Returned for similar symptoms yesterday afternoon. Chest x-ray done on admission showing cardiomegaly with pulmonary vascular congestion and questionable right lower lobe infiltrate or effusion. CBC: WBC count 11.2, hemoglobin 10.5, hematocrit 37.3, platelets 315. CMP: Sodium 138, potassium 4.8, chloride 97, serum bicarb 39, BUN 23, creatinine 0.45, glucose 103. Lactic 1. LFTs unremarkable. Troponin less than 0.012. I am evaluating this patient emergency department, he is currently unresponsive, to even painful stimuli. He is on a 15 L nonrebreather. SpO2 88%. Diminished breath sounds on the right Will place this patient on BiPAP with initial settings 16/5 FiO2 to be titrated accordingly. Will get a stat ABG. We will repeat chest x-ray. I did talk to the patient's son, Alan, he is adamant that the patient remain a full code, would want the patient intubated if necessary. On reassessment in the emergency department, patient remained on BiPAP with settings 16/5 100%. He remains unresponsive to painful stimuli. Now only achieving tidal volumes ranging from 100 to 200 cc. Unfortunately, we were not able to to get an initial blood gas. I recommended that the patient be moved to the trauma bay and intubated by the [employer]. Follow-up chest x-ray showing the endotracheal tube in appropriate position above the avery. Orogastric tube coursing below the diaphragm. Initial ventilator settings include assist- control, respiratory rate 20, tidal volume 500, FiO2 100%, PEEP of 5. Currently, patient is fairly asynchronous with the ventilator and he is biting the tube. There are copious amounts of blood-tinged sputum in the ET tube. Elevated peak airway pressures of 45. Static pressure 32. The nurses are working on appropriately sedating the patient with propofol. Postintubation, the patient did become hypotensive, currently receiving his second liter of normal saline. Will also start the patient on norepinephrine to maintain a MAP of greater than 65 mmHg. I did insert a left femoral arterial line. Following this, we did obtain an ABG showing profound hypercapnic and hypoxic respiratory failure. PaO2 of 89, pCO2 98, pH of 7.11. Appropriate ventilator adjustments were made including increasing the rate to 26 and PEEP can be increased to 8. Patient may eventually need repeat bronchoscopy with BAL. Case will be discussed with Dr. Munoz. Patient is still waiting for a bed in the intensive care unit. I did call and update patient's son Alan about his change in clinical condition. 02/27/24 - Patient seen at bedside today, in the ICU. He is on day 3 of his hospital stay, admitted on 02/25/24 and in the ICU since 02/26/24. He remains mechanically ventilated intubated since 02/26/24. He remains on assist-control with a rate of 26, volume 500, FiO2 50% (down from 60%) and a PEEP of 8. ABG done today (on 60% FiO2) showed pO2 126, pCO2 35, pH is 7.50, indicating a mixed respiratory and metabolic alkalosis. Abnormality shown on the patient's lab this morning, inconsistent and drastic changes from previous labs. Will perform a redraw today to get a better idea on how the labs are changed. He remains on vasopressin 0.03 units/min, Levophed at 0.07 mcg/kg/min (6.8 mcg/min), propofol 75 mcg/kg/min, receiving TPN at 30 cc/h (which is goal). Patient's blood pressure today 131/53. Additionally, patient receiving cefepime and vancomycin secondary to leukocytosis and a Tmax on 02/26/24 of 100.5 F. Sputum culture currently pending. Chest x-ray from this morning showed improving right perihilar and lower lobe infiltrate. Additionally, patient is currently receiving TPN ([employer]inim[employer]) at 30 cc/h which is goal for dietitian. 02/28/24 - Patient seen at bedside today, in the ICU. He is on day 4 of his hospital stay, admitted on 02/25/24 and in the ICU since 02/26/24. He remains intubated and mechanically ventilated since 02/26/24. He remains on assist- control with a rate of 25, [place] 500, FiO2 40% and PEEP of 8. ABG done today (while on 100% FiO2) showed pO2 255, pCO2 37, pH 7.44 indicating slight respiratory alkalosis. The abnormalities noted on the patient's labs from yesterday were rechecked on a couple of occasion and seem to be accurate. This morning labs showed WBC 5.2, hemoglobin 8.2, sodium 139, potassium 3.8, chloride 114, BUN 10, creatinine 0.44, calcium 8.2, phosphorus 2.6, magnesium 2.0. Patient received supplementation with sodium phosphate, potassium chloride and magnesium sulfate. He remains on Levophed 0.07 mcg/kg/min (7 mcg/min), propofol 75 mcg/kg/min, normal saline at 30 cc/h and TPN at 30 cc/h (which is goal). Additionally, patient remains on cefepime and vancomycin; sputum culture is fi nal for Pseudomonas aeruginosa that any resistance. Blood cultures continue to be pending at this time. Chest x-ray from this morning continue show right lower lobe infiltrate. 02/29/24 - Patient seen at bedside today, in the ICU. He is on day 5 of his hospital stay, admitted on 02/25/24 and then the ICU since 02/26/24. He remains intubated mechanically ventilated since 02/26/24. He remains on assist-control with a rate of 26, volume 500, FiO2 50%, PEEP of 8. ABG completed today showed pO2 96, pCO2 30, pH 7.51 indicating a respiratory and metabolic alkalosis. On labs drawn today patient's WBC is 4.1, hemoglobin 8.0, sodium 138, chloride 114, potassium 3.9, BUN 13, creatinine 0.46, phosphorus 2.2, magnesium 1.9. Patient received 1 g magnesium sulfate this morning and 15 mmol sodium phosphate. He remains on propofol 75 mcg/mg/min, Levophed at 0.03 mcg/kg/min (~3 mcg/min) and TPN at 30 cc/h (which is goal). He remains on 0.9% normal saline at 20 cc/h, and cefepime 2 g every 8 hours. Blood cultures remain pending at this time. Chest x-ray shows more prominent small bilateral pleural effusions and associated bibasilar opacities. The patient is seen today March 01, 2024 in follow-up on the regular medical floor. He remains intubated on the mechanical ventilator and assist-control mode with a rate of 26, tidal volume 500, FiO2 50% and a PEEP of 8. Morning blood gases revealed a PaO2 111, pCO2 22 and a pH of 7.48. He is currently on propofol at 55 mcg/kg/min. Receiving TPN at 30 mL/h. Normal saline at KVO. He remains on cefepime for pseudomonal bronchial infection. White count 5.2. Hemoglobin 8.4. Platelets 184. Sodium 136. Potassium 3.5. Bicarb 20. BUN 13. Creatinine 0.53. Glucose 87. He is afebrile. Hemodynamically stable. Chest x-ray reveals persistent small bilateral effusions. He is continued on DuoNebs. Lovenox for DVT prophylaxis. The patient is seen today March 11, 2024 in follow-up on the selective care unit. He was recently transferred back out of the intensive care unit. He did undergo tracheostomy tube placement on 03/05/2024. He is currently awake and alert in no acute distress. He is maintaining good O2 saturations in the 90s on 28% FiO2 via T-piece. He is afebrile. Hemodynamically stable. Currently has a speaking valve on. He did pass a swallow evaluation and is tolerating a chopped food diet. Continues to be nurse with TPN at 85 mL/h. Bronchial lavage cultures from March 02, 2024 were positive for Pseudomonas aeruginosa. He remains on Zosyn per ID service. Sodium 133. Potassium 4.6. Bicarb 29. BUN 13. Creatinine 0.48. Glucose 161. He remains on bronchodilators, Solu-Cortef. Therapeutic Lovenox. The patient is seen today March 22, 2024 in follow-up in the intensive care unit. He remains intubated on the mechanical ventilator and assist-control mode at a rate of 28, tidal volume 450, FiO2 30% and a PEEP of 5. Blood gases revealed a PaO2 of 92, pCO2 29 and a pH of 7.52. Lactated Ringer's at 75 mL/h. TPN at 30 mL/h. Chest x-ray is stable. Lung sounds clear. He remains on DuoNeb inhalations, Pulmicort and performance inhalations, Solu-Cortef 50 mg every 8 hours. Continued on Zosyn. Rhonchi wash cultures from 03/17/2024 revealed Pseudomonas aeruginosa.. Platelets 261. Sodium 133. Potassium 3.5. Bicarb 22. BUN 8. Creatinine 0.44. Glucose 102. Objective - Vital Signs Vital signs: Vital Signs Temp 97.8 F 03/22/24 08:00 Pulse 63 03/22/24 11:18 Resp 28 H 03/22/24 09:00 BP 117/58 03/21/24 10:30 Pulse Ox 97 03/22/24 09:00 FiO2 30 03/22/24 11:08 Intake & Output 03/21/24 03/22/24 03/22/24 18:59 06:59 18:59 Intake Total 5376.798 3903.033 677 Output Total 1310 820 115 Balance 430.124 936.033 562 Weight 98.6 kg Intake: IV 1196 1396 432 3cc/hr [place] 36 36 12 Lactated Ringers 1,000 ml 900 900 300 @ 75 mls/hr IV .[id number] ANNIE Rx#:[id number] Mvi, Adult No.4 with Vit 60 360 120 K 10 ml Trace (Conc-1Ml/ Dose) 1 ml Sodium Chloride 4Meq/ml Vial 100 meq Potassium Acetate 40 meq Calcium Gluconate 1 gm Magnesium Sulfate gm 1 .5 gm Sodium Phosphate 21 mmol In Amino Acids 5 %/ Dextrose 20 % 1,000 ml @ 30 mls/hr IV .Q24H [facility] Rx #:[id number] Piperacillin-Tazobactam 3 200 100 .375 gm In Sodium Chloride 0.9% 100 ml @ 25 mls/hr IVPB Q8HR [facility] Rx# :[id number] Intake, IV Titration 514.124 360.033 200 Amount Mvi, Adult No.4 with Vit 240 K 10 ml Trace (Conc-1Ml/ Dose) 1 ml Sodium Chloride 4Meq/ml Vial 100 meq Potassium Acetate 40 meq Calcium Gluconate 1 gm Magnesium Sulfate gm 1 .5 gm Sodium Phosphate 21 mmol In Amino Acids 5 %/ Dextrose 20 % 1,000 ml @ 30 mls/hr IV .Q24H [facility] Rx #:[id number] Potassium Chloride 20 meq 100 In Water For Injection 1 100ml.bag @ 50 mls/hr IVPB Q2H [facility] Rx#: [id number] propofoL 1,000 mg In 274.124 360.033 100 Empty Bag 1 bag @ 15 MCG/ KG/MIN 8.235 mls/hr IV . Q12H9M ANNIE Rx#:[id number] Other 30 45 Output: Gastric Drainage 100 Urine 410 520 115 Stool 800 300 Other: Voiding Method Indwelling Catheter Indwelling Catheter ABP, PAP, CO, CI - Last Documented Arterial Blood Pressure 99/40 - Exam GENERAL EXAM: Sedated 48-year-old male, on the mechanical ventilator, in no apparent distress. HEAD: Normocephalic. EYES: Normal reaction of pupils, equal size. NOSE: Clear with pink turbinates. THROAT: Oral endotracheal tube secured in place. NECK: Tracheotomy site dressing dry and intact. No masses, no JVD. CHEST: No chest wall deformity. LUNGS: Equal air entry with few scattered rhonchi. CVS: S1 and S2 normal with no audible murmur, regular rhythm. ABDOMEN: Functioning ileostomy. The patient also has evidence of enterocutan eous fistula over the anterior abdominal wall. SPINE: No scoliosis or deformity SKIN: No rashes CENTRAL NERVOUS SYSTEM: Sedated, tone is normal in all 4 extremities. EXTREMITIES: PICC line in place. Right BKA. profound weakness in all extremities, extensive muscle atrophy in all 4 extremities. Peripheral pulses are intact. - Labs CBC & Chem 7: 03/22/24 05:35 03/22/24 05:35 Labs: Abnormal Lab Results - Last 24 Hours (Table) 03/22/24 03/22/24 03/22/24 Range/Units 05:35 05:35 05:38 RBC 3.36 L (4.30-5.90) m/uL Hgb 8.3 L (13.0-17.5) gm/dL Hct 27.7 L (39.0-53.0) % MCH 24.8 L (25.0-35.0) pg MCHC 30.1 L (31.0-37.0) g/dL RDW 16.3 H (11.5-15.5) % ABG pH 7.52 H (7.35-7.45) ABG pCO2 29 L (35-45) mmHg ABG Total CO2 25 H (19-24) mmol/L ABG O2 Saturation 98.5 H (94-97) % Hemoglobin 8.2 L (13.0-17.5) gm/dL Sodium 133 L (137-145) mmol/L BUN 8 L (9-20) mg/dL Creatinine 0.44 L (0.66-1.25) mg/dL Glucose 102 H (74-99) mg/dL Assessment and Plan Assessment: Acute hypoxic and hypercapnic respiratory failure, requiring mechanical intubation on 02/26/24, bronchial wash cultures from 03/02/2024 were positive for Pseudomonas aeruginosa, tracheostomy tube placed 03/05/2024. On March 17, 2024 the patient became hypoxic and respiratory therapy were unable to bag the patient through his tracheostomy tube. He was returned to the intensive care unit and orally intubated with tracheostomy tube was removed. He had a repeat bronchoscopy that day that was again positive for Pseudomonas. He remains intubated and on the mechanical ventilator. Surgery is considering doing a tracheostomy revision and placing an XLT tube back in place Pseudomonas aeruginosa pneumonia History of tracheal stenosis noted at the previous tracheostomy site Recent history of recurrent ventilator dependent respiratory failure, secondary to pneumonia and mucous plugging Cardiogenic shock secondary to sepsis/respiratory failure recovered Sepsis secondary to above, recovered Leukocytosis, resolved Hx of Crohn's disease, with previous complication of bowel perforation s/p colectomy and diverting ileostomy Hyperphosphatemia, resolved Hypokalemia, resolved Hyponatremia, resolved Hypophosphatemia, resolved Hypomagnesemia, resolved Previous tracheostomy and reversal, with tracheal stenosis Tracheobronchomalacia History of DVT, on therapeutic dose of Lovenox CVA/TIA, with residual left-sided weakness Right BKA Cardiac arrest in 2021 Plan: The patient was seen and evaluated Chest x-ray, ABGs and labs and medications reviewed Remains sedated and on the mechanical ventilator Continue bronchodilators, Solu-Cortef Continue TPN and lipids per dietitian Therapeutic Karonx Remains on Zosyn Surgical services considering trach revision and placement of an XLT tube We will continue to follow I have personally seen and examined the patient, performed the documentation and the assessment and plan as written. Number of minutes spent on the visit: 15 Dictation was produced using [employer] dictation software. Please excuse any grammatical, word or spelling errors. This patient was seen in coordination with the pulmonary/critical care physician, Dr. Munoz. He did spend greater than 50% of the time evaluating, examining and developing the plan of care. He agrees to the above HPI, physical exam, assessment and plan of care as dictated by the nurse practitioner. Time with Patient: Greater than 30
[2024-03-22 12:43] LABS: Glucose,Whole Blood 93 mg/dL (70-110)
--- NOTE | 2024-03-22 13:11 | P.PN ---
Subjective Progress Note Date: 03/22/24 Patient is eval today in the intensive care unit. Patient remains intubated and on mechanical ventilator. Tracheostomy has dressing over it. No plans for transfer at this time he was denied at [facility] in [facility] secondary to wait list for transfer. Additionally multiple other hospitals have refused transfer. Surgery with plans for extra long trach insertion. Patient states that he is having generalized pain and also significant discomfort in his throat IV Dilaudid was increased to every 2 hours. He remains on IV Solu-Cortef. He remains on TPN lipids. Patient is been off of vasopressor support. He continues on IV Zosyn. Chest x-ray today reveals bibasilar opacities favor atelectasis. He remains afebrile. 03/22/2024 Patient evaluated in follow-up in intensive care unit with family at the bedside. He is agitated today he does state that his throat is hurting still. Pending follow-up from general surgery with further recommendations for an extra long trach insertion. He remains on the mechanical ventilator at this time. Continues on TPN and lipids. Remains on IV Zosyn. Chest x-ray today reveals bibasilar acute infiltrates and tiny bilateral pleural effusions. Potassium 3.5 Review of Systems Constitutional: Denied any fatigue denied any fever. Cardio vascular: denied any chest pain, palpitations Gastrointestinal: denied any nausea, vomiting, diarrhea Pulmonary: Denied any shortness of breath cough Reports sore throat Neurologic denied any new focal deficits All inpatient medications were reviewed and appropriate changes in these medications as dictated in the interval history and assessment and plan. PHYSICAL EXAMINATION: GENERAL: The patient is alert and oriented x3, not in any acute distress. Well developed, well nourished. Intubated. Tracheostomy covered with dressing. HEENT: Pupils are round and equally reacting to light. EOMI. No scleral icterus. No conjunctival pallor. Normocephalic, atraumatic. No pharyngeal erythema. No thyromegaly. CARDIOVASCULAR: S1 and S2 present. No murmurs, rubs, or gallops. PULMONARY: Chest is clear to auscultation, no wheezing or crackles. ABDOMEN: Soft, nontender, nondistended, normoactive bowel sounds. No palpable organomegaly. Central abdominal wound with similar to colostomy bag in place connected to fecal management system MUSCULOSKELETAL: No joint swelling or deformity. EXTREMITIES: No cyanosis, clubbing, or pedal edema. NEUROLOGICAL: Gross neurological examination did not reveal any focal deficits. Diffuse weakness. Contractures on hands bilaterally. SKIN: No rashes. 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 ID team on the case. Will keep trying to transfer the patient to tertiary care center, [facility]. Some other options include [facility] and [facility] who had fu ll capacity in the last few days that this might change later General surgery with plans for extra long trach placement Continue with TPN Continue with IV hydrocortisone 50 mg 3 times daily Continue with IV fluid Ringer lactate Continue therapeutic dose of Lovenox 80 mg twice daily. Pulmonary team consulted on the case Infectious disease and general surgery team consult The impression and plan of care has been dictated by Coral Medina, Nurse Practitioner as directed. Dr. Mo MD I have performed a history and physical examination and medical decision making of this patient, discussed the same with the dictator, and agree with the dictators assessment and plan as written, documented as a scribe. Based on total visit time, I have performed more than 50% of this visit. Plan Objective - Vital Signs Vital signs: Vital Signs Temp 98.2 F 03/22/24 12:00 Pulse 68 03/22/24 12:00 Resp 28 H 03/22/24 12:00 BP 117/58 03/21/24 10:30 Pulse Ox 98 03/22/24 12:00 FiO2 30 03/22/24 12:00 Intake & Output 03/21/24 03/22/24 03/22/24 18:59 06:59 18:59 Intake Total 7946.996 6647.033 993 Output Total 1310 820 160 Balance 430.124 936.033 833 Weight 98.6 kg Intake: IV 1196 1396 548 3cc/hr [place] 36 36 18 Lactated Ringers 1,000 ml 900 900 300 @ 75 mls/hr IV .[id number] ANNIE Rx#:[id number] Mvi, Adult No.4 with Vit 60 360 180 K 10 ml Trace (Conc-1Ml/ Dose) 1 ml Sodium Chloride 4Meq/ml Vial 100 meq Potassium Acetate 40 meq Calcium Gluconate 1 gm Magnesium Sulfate gm 1 .5 gm Sodium Phosphate 21 mmol In Amino Acids 5 %/ Dextrose 20 % 1,000 ml @ 30 mls/hr IV .Q24H ANNIE Rx #:[id number] Piperacillin-Tazobactam 3 200 100 50 .375 gm In Sodium Chloride 0.9% 100 ml @ 25 mls/hr IVPB Q8HR [facility] Rx# :[id number] Intake, IV Titration 514.124 360.033 400 Amount Mvi, Adult No.4 with Vit 240 K 10 ml Trace (Conc-1Ml/ Dose) 1 ml Sodium Chloride 4Meq/ml Vial 100 meq Potassium Acetate 40 meq Calcium Gluconate 1 gm Magnesium Sulfate gm 1 .5 gm Sodium Phosphate 21 mmol In Amino Acids 5 %/ Dextrose 20 % 1,000 ml @ 30 mls/hr IV .Q24H ANNIE Rx #:[id number] Potassium Chloride 20 meq 200 In Water For Injection 1 100ml.bag @ 50 mls/hr IVPB Q2H ANNIE Rx#: [id number] propofoL 1,000 mg In 274.124 360.033 200 Empty Bag 1 bag @ 15 MCG/ KG/MIN 8.235 mls/hr IV . Q12H9M [facility] Rx#:[id number] Other 30 45 Output: Gastric Drainage 100 Urine 410 520 160 Stool 800 300 Other: Voiding Method Indwelling Catheter Indwelling Catheter ABP, PAP, CO, CI - Last Documented Arterial Blood Pressure 115/50 - Labs CBC & Chem 7: 03/22/24 05:35 03/22/24 05:35 Labs: Abnormal Lab Results - Last 24 Hours (Table) 03/22/24 03/22/24 03/22/24 Range/Units 05:35 05:35 05:38 RBC 3.36 L (4.30-5.90) m/uL Hgb 8.3 L (13.0-17.5) gm/dL Hct 27.7 L (39.0-53.0) % MCH 24.8 L (25.0-35.0) pg MCHC 30.1 L (31.0-37.0) g/dL RDW 16.3 H (11.5-15.5) % ABG pH 7.52 H (7.35-7.45) ABG pCO2 29 L (35-45) mmHg ABG Total CO2 25 H (19-24) mmol/L ABG O2 Saturation 98.5 H (94-97) % Hemoglobin 8.2 L (13.0-17.5) gm/dL Sodium 133 L (137-145) mmol/L BUN 8 L (9-20) mg/dL Creatinine 0.44 L (0.66-1.25) mg/dL Glucose 102 H (74-99) mg/dL Assessment and Plan Time with Patient: Less than 30
[2024-03-22] MEDS: KETOROLAC 15 MG/ML 1 ML VIAL IVP PRN (17:06)
[2024-03-22] MEDS: MVI, ADULT NO.4 WITH VIT K 10 ML, TRACE (CONC-1ML/DOSE) 1 ML, SODIUM CHLORIDE 4MEQ/ML V... IV SCH (17:08)
[2024-03-22 18:02] LABS: Glucose,Whole Blood 96 mg/dL (70-110)
--- NOTE | 2024-03-22 21:55 | P.PN ---
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 Tracheostomy has been removed the patient has been intubated and transferred back to the ICU. On today's visit that is 03/22/2024, Patient is afebrile patient is currently on ventilator FiO2 is currently stable at 30% patient is awake and alert and trying to communicate has been tolerating his tube feeds no other changes reported by nursing staff not requiring any pressor support. Patient white count is 5.5 creatinine 0.44 Objective - Vital Signs Vital signs: Vital Signs Temp 97.8 F 03/22/24 08:00 Pulse 68 03/22/24 12:00 Resp 28 H 03/22/24 12:00 BP 117/58 03/21/24 10:30 Pulse Ox 98 03/22/24 12:00 FiO2 30 03/22/24 12:00 Intake & Output 03/21/24 03/22/24 03/22/24 18:59 06:59 18:59 Intake Total 8734.235 2497.033 993 Output Total 1310 820 160 Balance 430.124 936.033 833 Weight 98.6 kg Intake: IV 1196 1396 548 3cc/hr Lorrie 36 36 18 Lactated Ringers 1,000 ml 900 900 300 @ 75 mls/hr IV .[id number] ANNIE Rx#:[id number] Mvi, Adult No.4 with Vit 60 360 180 K 10 ml Trace (Conc-1Ml/ Dose) 1 ml Sodium Chloride 4Meq/ml Vial 100 meq Potassium Acetate 40 meq Calcium Gluconate 1 gm Magnesium Sulfate gm 1 .5 gm Sodium Phosphate 21 mmol In Amino Acids 5 %/ Dextrose 20 % 1,000 ml @ 30 mls/hr IV .Q24H ANNIE Rx #:[id number] Piperacillin-Tazobactam 3 200 100 50 .375 gm In Sodium Chloride 0.9% 100 ml @ 25 mls/hr IVPB Q8HR ANNIE Rx# :[id number] Intake, IV Titration 514.124 360.033 400 Amount Mvi, Adult No.4 with Vit 240 K 10 ml Trace (Conc-1Ml/ Dose) 1 ml Sodium Chloride 4Meq/ml Vial 100 meq Potassium Acetate 40 meq Calcium Gluconate 1 gm Magnesium Sulfate gm 1 .5 gm Sodium Phosphate 21 mmol In Amino Acids 5 %/ Dextrose 20 % 1,000 ml @ 30 mls/hr IV .Q24H ANNIE Rx #:[id number] Potassium Chloride 20 meq 200 In Water For Injection 1 100ml.bag @ 50 mls/hr IVPB Q2H ANNIE Rx#: [id number] propofoL 1,000 mg In 274.124 360.033 200 Empty Bag 1 bag @ 15 MCG/ KG/MIN 8.235 mls/hr IV . Q12H9M ANNIE Rx#:[id number] Other 30 45 Output: Gastric Drainage 100 Urine 410 520 160 Stool 800 300 Other: Voiding Method Indwelling Catheter Indwelling Catheter ABP, PAP, CO, CI - Last Documented Arterial Blood Pressure 115/50 - Exam GENERAL DESCRIPTION: Middle-age man intubated on the vent RESPIRATORY SYSTEM: Unlabored breathing , decreased intensity of breath sounds HEART: S1 S2 regular rate and rhythm , ABDOMEN: Soft , no tenderness - Labs CBC & Chem 7: 03/22/24 05:35 03/22/24 05:35 Labs: Abnormal Lab Results - Last 24 Hours (Table) 03/22/24 03/22/24 03/22/24 Range/Units 05:35 05:35 05:38 RBC 3.36 L (4.30-5.90) m/uL Hgb 8.3 L (13.0-17.5) gm/dL Hct 27.7 L (39.0-53.0) % MCH 24.8 L (25.0-35.0) pg MCHC 30.1 L (31.0-37.0) g/dL RDW 16.3 H (11.5-15.5) % ABG pH 7.52 H (7.35-7.45) ABG pCO2 29 L (35-45) mmHg ABG Total CO2 25 H (19-24) mmol/L ABG O2 Saturation 98.5 H (94-97) % Hemoglobin 8.2 L (13.0-17.5) gm/dL Sodium 133 L (137-145) mmol/L BUN 8 L (9-20) mg/dL Creatinine 0.44 L (0.66-1.25) mg/dL Glucose 102 H (74-99) mg/dL Assessment and Plan (1) Pneumonia Current Visit: No Status: Acute Code(s): J18.9 - PNEUMONIA, UNSPECIFIED ORGANISM SNOMED Code(s): 876902291 (2) Sepsis Current Visit: No Status: Acute Code(s): A41.9 - SEPSIS, UNSPECIFIED ORGANISM SNOMED Code(s): 28516234 Plan: 1patient presented to hospital with sepsis in this patient who did have a low- grade fever elevated white count tachycardia meeting criteria for SIRS source likely pneumonia at this patient presenting with increasing shortness of breath cough with evidence of right-sided infiltrate, patient has been admitted to the hospital and will need to cover for resistant gram-positive as well as gram- negative 2-patient is status post bronchoscopy and lavage completed on 03/02/2024 cultures currently growing Pseudomonas that is resistant to cefepime, with repeat bronchoscopy on 03/17/2024 and grew Pseudomonas again sensitive to Zosyn 3-patient remains to be afebrile white count has been normal, keeping in mind his overall complicated case especially with tracheostomy removal reintubation persistent positive sputum culture continue with the Zosyn Mother at the bedside question answered Dictation was produced using [employer] dictation software. please excuse any grammatical, word or spelling errors. Time with Patient: Less than 30
[2024-03-22 23:48] LABS: Glucose,Whole Blood 91 mg/dL (70-110)
[2024-03-23] MEDS ORDERED: HYDROcodone/APAP 5-325MG 1 EACH TAB PO PRN (00:43)
[2024-03-23] MEDS: HYDROcodone/APAP 10-325MG 1 EACH TAB PO PRN (03:34)
[2024-03-23 04:43] LABS: ABG Base Excess 0.2 mmol/L; ABG HCO3 23 mmol/L (21-25); ABG Oxygen Saturation 98.3 % (94-97); ABG PCO2 28 mmHg (35-45); ABG PH 7.52 (7.35-7.45); ABG PO2 92 mmHg (83-108); ABG TCO2 24 mmol/L (19-24); Allen Test Performed? Yes
[2024-03-23 05:04] LABS: Glucose,Whole Blood 99 mg/dL (70-110)
[2024-03-23] MEDS: FUROSEMIDE 10 MG/ML 2 ML VIAL IV ONE (05:09)
[2024-03-23 05:51] LABS: Anisocytosis Slight; HCT 25.9 % (39.0-53.0); Hypochromasia Marked; MCH 25.2 pg (25.0-35.0); MCHC 30.8 g/dL (31.0-37.0); MCV 81.8 fL (80.0-100.0); Mean Platelet Volume 8.8; Platelet Count 257 k/uL (150-450); Poikilocytosis Slight; RBC 3.16 m/uL (4.30-5.90); RDW 16.3 % (11.5-15.5); WBC 6.7 k/uL (3.8-10.6)
[2024-03-23 06:07] LABS: African American GFR (CKD) >90 (>60 ml/min/1.73 sqM); Anion Gap 6 mmol/L; Blood Urea Nitrogen 11 mg/dL (9-20); Calcium 8.4 mg/dL (8.4-10.2); Carbon Dioxide 20 mmol/L (22-30); Chloride 106 mmol/L (98-107); Glucose 93 mg/dL (74-99); Non-African American GFR(CKD) >90 (>60 ml/min/1.73 sqM); Potassium 3.8 mmol/L (3.5-5.1); Sodium 132 mmol/L (137-145)
[2024-03-23] MEDS: POTASSIUM BICARBONATE/CIT AC 20 MEQ TABLET.EFF NG-TUBE SCH (06:31)
--- NOTE | 2024-03-23 07:55 | P.PN ---
Progress Note - Text Progress Note Date: 03/22/24 CHIEF COMPLAINT: Respiratory failure HISTORY OF PRESENT ILLNESS: Patient remains in ICU. Patient had to be reintubated and tracheostomy tube was removed at that time. Afebrile. PHYSICAL EXAM: VITAL SIGNS: Reviewed. GENERAL: No acute distress HEENT: Prior tracheostomy site covered with gauze and compression dressing ASSESSMENT: 1. Acute hypoxic respiratory failure. Patient status post removal of tracheostomy tube March 17, 2024 and reintubated. 2. History of tracheal stenosis PLAN: -Continue to wean vent settings. Once vent settings at minimal, patient may benefit from returning to OR and placement of XLT trach -If unable to wean vent or unsuccessful with placement of XLT trach, recommend transfer to tertiary care center with ENT coverage -Continue ICU care [facility] [phone]
--- NOTE | 2024-03-23 08:19 | XR ---
EXAMINATION TYPE: XR chest 1V portable DATE OF EXAM: 03/23/2024 CLINICAL HISTORY: Difficulty breathing progress study. TECHNIQUE: Single AP portable upright view of the chest is obtained. COMPARISON: Chest x-ray from one day earlier FINDINGS: Stable endotracheal and orogastric tubes. Left-sided central venous catheter redemonstrate d, course is difficult to follow due to overlying external tube. Persistent bibasilar opacities. Cardiac silhouette size is stable and upper limits of normal. Surgica l clips in the right lower neck are redemonstrated. Osseous structures are intact. IMPRESSION: Bibasilar acute infiltrates and/or atelectasis and small to tiny bilateral pleural effusi ons remain present. No significant change from one day earlier. [facility], , 03/23/2024 8:16 AM
--- NOTE | 2024-03-23 08:46 | P.PN ---
Subjective Progress Note Date: 03/23/24 On 03/23/2024, the patient is being seen for a follow-up. The patient remains intubated on the mechanical ventilator. The patient is well-known to me. The patient has history of acute on top of chronic hypoxic and hypercapnic respiratory failure and he required intubation on 02/26/2024. He does have chr onic respiratory insufficiency due to poor ability to perform pulmonary toileting and a weak cough and he has developed recurrent pneumonias with gram- negative and MRSA. Note that sputum samples from 02/26/2024 were positive for Pseudomonas aeruginosa. The patient required intubation mechanical ventilation initially on 02/26/2024. He required several bronchoscopies that showed purulent respiratory secretions and mucous plugging contributing to his respiratory failure. My recommendation at that time was to proceed with tracheostomy . Tracheostomy tube insertion that was inserted on 03/05/2024 and the patient was weaned off the mechanical ventilator. He also has a component of tracheal stenosis and this is a site of the previously tracheostomy tube. Subsequently, the patient got released out of the intensive care unit to be readmitted back to the intensive care unit as a rapid response team was called on this patient for increased respiratory distress. The patient was receiving b ag valve mask ventilation and he was still hypoxic. At that point, the decision by Dr. Munoz was made to wean the patient orally and the tracheostomy tube was removed and the patient was connected back to the mechanical ventilator and started on sedation with propofol and Nimbex for paralysis. Since then, the patient remains intubated on a mechanical ventilator. This morning, he is on a assist-control mode at rate of 28 with a tidal volume of 450, FiO2 of 30% with a PEEP of 5. He remains on lactated Ringer at rate of 75 cc an hour. TPN is running at 30 cc an hour. His most recent cultures from the bronchioloalveolar lavage on 03/17/2024 was still showing Pseudomonas aeruginosa and the patient remains on IV Zosyn. He is on Propofol at 50 mcg/kg/min. The blood gas from today showed a pH of 7.52 with a pCO2 of 28 and pO2 of 92. White cell count 6.7 with a hemoglobin of 8 and a platelet count of 257. BUN 11 creatinine 0.5 and a sodium level is at 132. His chest x-ray from today shows no significant consolidation or airspace disease. Some atelectatic changes in lung bases and s mall subpulmonic pleural effusion. ET tube is around 5 cm above the avery. Labs from today showed a white cell count of 6.7 with a hemoglobin of 8 and a platelet count of 157, sodium is at 132, potassium is at 3.8, bicarb is at 20 with a BUN of 11 and a creatinine of 0.52. He does have chronic muscle atrophy lower extremities bilaterally. Profound weakness in all 4 extremities. Adequate cough. Objective - Vital Signs Vital signs: Vital Signs Temp 98.4 F 03/23/24 04:00 Pulse 45 L 03/23/24 05:00 Resp 28 H 03/23/24 05:00 BP 117/58 03/23/24 05:00 Pulse Ox 97 03/23/24 05:00 FiO2 30 03/23/24 04:33 Intake & Output 03/22/24 03/22/24 03/23/24 06:59 18:59 06:59 Intake Total 2763.911 5214.047 1752.689 Output Total 820 725 300 Balance 984.526 3573.047 1452.689 Weight 98.6 kg 99 kg Intake: IV 1396 1186 1133 3cc/hr Moffat 36 36 33 Lactated Ringers 1,000 ml 900 675 825 @ 75 mls/hr IV .[id number] ANNIE Rx#:[id number] Mvi, Adult No.4 with Vit 360 300 K 10 ml Trace (Conc-1Ml/ Dose) 1 ml Sodium Chloride 4Meq/ml Vial 100 meq Potassium Acetate 40 meq Calcium Gluconate 1 gm Magnesium Sulfate gm 1 .5 gm Sodium Phosphate 21 mmol In Amino Acids 5 %/ Dextrose 20 % 1,000 ml @ 30 mls/hr IV .Q24H ANNIE Rx #:[id number] Piperacillin-Tazobactam 3 100 175 275 .375 gm In Sodium Chloride 0.9% 100 ml @ 25 mls/hr IVPB Q8HR ANNIE Rx# :[id number] Intake, IV Titration 360.033 672.047 619.689 Amount Mvi, Adult No.4 with Vit 60 330 K 10 ml Trace (Conc-1Ml/ Dose) 1 ml Sodium Chloride 4Meq/ml Vial 140 meq Potassium Acetate 60 meq Calcium Gluconate 1 gm Magnesium Sulfate gm 1 .5 gm Sodium Phosphate 21 mmol In Amino Acids 5 %/ Dextrose 20 % 1,000 ml @ 30 mls/hr IV .Q24H ANNIE Rx #:[id number] Potassium Chloride 20 meq 250 In Water For Injection 1 100ml.bag @ 50 mls/hr IVPB Q2H ANNIE Rx#: [id number] propofoL 1,000 mg In 360.033 362.047 289.689 Empty Bag 1 bag @ 15 MCG/ KG/MIN 8.235 mls/hr IV . Q12H9M ANNIE Rx#:[id number] Other 45 Output: Urine 520 425 300 Stool 300 300 Other: Voiding Method Indwelling Catheter Indwelling Catheter Indwelling Catheter ABP, PAP, CO, CI - Last Documented Arterial Blood Pressure 111/48 - Exam GENERAL: A 48-year-old male patient, currently intubated on the mechanical ventilator. Head exam was generally normal. There was no scleral icterus or corneal arcus. Mucous membranes were moist. HEENT: No scleral icterus. No conjunctival pallor. Normocephalic, atraumatic. CARDIOVASCULAR: S1 and S2 present. No murmurs, rubs, or gallops. PULMONARY: Diminished breath sounds were bilaterally. No wheezes rhonchi or crackles ABDOMEN: Soft, nontender, nondistended, normoactive bowel sounds. No palpable organomegaly. Functioning ileostomy. 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 EXTREMITIES: No cyanosis, clubbing, or pedal edema. NEUROLOGICAL: Profound weakness in all 4 extremities, weak cough, extensive muscle atrophy in all 4 extremities. Arousable and awake and follows simple commands and communicates. SKIN: No rashes. Left chest PICC line. - Labs CBC & Chem 7: 03/23/24 05:05 03/23/24 05:05 Labs: Abnormal Lab Results - Last 24 Hours (Table) 03/22/24 03/23/24 03/23/24 Range/Units 05:35 04:34 05:05 RBC 3.16 L (4.30-5.90) m/uL Hgb 8.0 L (13.0-17.5) gm/dL Hct 25.9 L (39.0-53.0) % MCHC 30.8 L (31.0-37.0) g/dL RDW 16.3 H (11.5-15.5) % ABG pH 7.52 H (7.35-7.45) ABG pCO2 28 L (35-45) mmHg ABG O2 Saturation 98.3 H (94-97) % Hemoglobin 8.0 L (13.0-17.5) gm/dL Sodium 133 L (137-145) mmol/L BUN 8 L (9-20) mg/dL Creatinine 0.44 L (0.66-1.25) mg/dL Glucose 102 H (74-99) mg/dL Assessment and Plan Plan: Acute hypoxic and hypercapnic respiratory failure, requiring mechanical intubation on 02/26/24. The patient is known to have chronic respiratory insufficiency as the patient has poor ability to perform pulmonary toileting, weak cough, and has had recurrent pneumonias with gram-negative and MRSA. Most recent sputum sample from 02/26/2024 is positive for Pseudomonas aeruginosa and the patient is currently on IV cefepime. Patient failed BiPAP therapy during this current admission the patient had to be intubated and placed on the mechanical ventilator on 02/26/2024. The patient was given a trial of extubation on 03/01/2024 and within 2 hours of extubation he had to be reintubated for increased work of breathing and hypoxic respiratory failure. Bronchoscopy was done on 03/02/2024 and 03/03/2024 revealed copious amount of purulent respiratory secretions and mucous plugs which probably contributing to his ongoing respiratory failure. The patient has poor ability to cough and perform pulmonary toileting and clear his respiratory secretions. 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 The bronchoalveolar lavage is showing Pseudomonas aeruginosa and the repeat cultures from 03/17/2024 was still positive for Pseudomonas aeruginosa and the sensitivities were noted and the patient remains on IV Zosyn. . The patient is status post tracheostomy tube insertion on 03/05/2024. Due to failure of ongoing mechanical ventilation and mucous plugging, the patient was reintubated on 03/17/2024 and since then the patient remains on the mechanical ventilator. Adequate oxygenation. Chest x- ray findings are stable. Remains on IV Zosyn. Tracheal stenosis at the site of the previously inserted tracheostomy tube, visualized on most recent bronchoscopy Previous history of recurrent ventilator dependent respiratory failure, secondary to pneumonia and mucous plugging. The patient has undergone previous bronchoscopies and cultures from bronchoscopy on 12/31/2023 was positive for MRSA and subsequent bronchoscopy on 01/03/2024 was positive for Klebsiella pneumoniae and Bella glabrata. Most recent sputum analysis from 02/26/2024 and 03/17/2024 was positive for Pseudomonas aeruginosa and the patient is currently on IV Zosyn. Sepsis secondary to above, recurrent pneumonia, currently on no pressors Leukocytosis, resolved Crohn's disease, with previous complication of bowel perforation s/p colectomy and diverting ileostomy. The patient also has had previous history of abdominal wall bleeding there is currently inactive and stable. The patient has a high output ileostomy TPN for nutritional support Electrolyte imbalance at time of admission including hyponatremia, hypokalemia, hypophosphatemia, hypomagnesemia and hyperphosphatemia, all resolved Tracheobronchomalacia History of DVT, on therapeutic dose of Lovenox CVA/TIA, with residual left-sided weakness Right BKA History of asystole/cardiac arrest in 2021 Plan: Patient is awake and alert despite being on propofol, communicating Continue vent support, no ventilator changes for today Continue IV Zosyn The patient is going to have a revision tracheostomy tube insertion today. He may need an extra long tracheostomy tube insertion as the patient has an area of tracheal stenosis in his upper trachea at the site of the previous tracheostomy tube insertion. I reviewed the chest x-ray from today and the tube or the orotracheal tube is around 5 cm above the avery. Will advise to push the tube as the patient is having ongoing leaks from his tracheostomy stoma. will repositing the ETT an evaluate the trachea pending another trach tube insertion On a separate note, the patient is also having purulent secretions at his tracheostomy stoma which is secondary to ongoing pseudomonal infection/pneumonia. Continue TPN for nutritional support Monitor his ileostomy output and the patient continues to have high output in the order of 1000 every 24 hours Continue Lovenox for previous history of DVT, therapeutic dose Critical care evaluation done more than 30 minutes. Time with Patient: Greater than 30
[2024-03-23 11:59] LABS: Glucose,Whole Blood 103 mg/dL (70-110)
[2024-03-23] MEDS: NOREPINEPHRINE 4 MG in SODIUM CHLORIDE 0.9% 250 ML IV SCH (12:46)
[2024-03-23] MEDS: MVI, ADULT NO.4 WITH VIT K 10 ML, TRACE (CONC-1ML/DOSE) 1 ML, SODIUM CHLORIDE 4MEQ/ML V... IV SCH (16:54)
[2024-03-23] MEDS: LACTATED RINGERS 500 ML IV SCH (18:31)
--- NOTE | 2024-03-23 22:24 | P.PCN ---
Date of Procedure: 03/23/24 Preoperative Diagnosis: Tracheal stenosis Bilateral pneumonia with Pseudomonas aeruginosa Postoperative Diagnosis: Same Procedure(s) Performed: Flexible bronchoscopy and therapeutic airway suctioning Tracheostomy tube removal Extubation and removal of the orotracheal tube Anesthesia: MAC Surgeon: Estela Holt Estimated Blood Loss (ml): 0 Pathology: none sent Condition: critical Disposition: ICU Operative Findings: . This procedure was done in the intensive care unit. The patient was already intubated by a #8 orotracheal tube. Initially, an airway inspection was done. An adapter was attached to the orotracheal tube and following that the flexible bronchoscope was inserted through the orotracheal tube and it was advanced to the distal trachea. Examination of the tracheobronchial tree was done and the patient had some moderate amount of respiratory secretions retained in the lower lobes bilaterally and therapeutic airway suctioning was done and the mucus and respiratory secretions were removed without any major difficulties. Following that, flexible bronchoscope was retracted back to the tip of the ET tube and the tube was gradually pulled up initially into the mid trachea and later on to the upper trachea. There was no evidence of any granulation tissue. The membranous trachea was quite dynamic reflecting a component of tracheobronchomalacia. At the same time, there was a broken cartilaginous ring in the upper trachea at the site of the previously inserted tracheostomy tube causing tracheal stenosis along with some some circumferential tracheal wall thickening. At this point, the ET tube was advanced back again. Following that, the flexible bronchoscope was inserted through the tracheostomy stoma and the appropriate tract was identified and the flexible bronchoscope was easily pushed into the trachea just next to the orotracheal tube. At this point, it was clear to me that I was able to insert a tracheostomy tube in this patient without any major difficulties At this point, using the flexible bronchoscope as a guidewire, a #8 extra long Shiley tracheostomy tube was easily passed through the tracheostomy stoma and as the ET tube was being gradually retracted, the tracheostomy tube was passed through the stoma into the upper trachea and the ET tube was removed in its entirety. At this point, the inner cannula was reinserted through the tracheostomy tube and the trach tube was attached to the mechanical ventilator. The patient was suctioned out without any major difficulties. The patient was generating and returning tidal volumes without any significant elevation of the airway pressures. The procedure was done without any complications. The patient continued to have a pulse ox above 90% throughout the procedure. Hemodynamically stable. Postop diagnosis Successful insertion of a extra lungs #6 Shiley tracheostomy tube and removal of the orotracheal tube Flexible bronchoscopy, visualization of a upper tracheal wall stenosis and bilateral respiratory secretions secondary to ongoing pseudomonal pneumonia.
--- NOTE | 2024-03-23 23:10 | P.PN ---
Subjective Progress Note Date: 03/23/24 Patient is eval today in the intensive care unit. Patient remains intubated and on mechanical ventilator. Tracheostomy has dressing over it. No plans for transfer at this time he was denied at [facility] in [facility] secondary to wait list for transfer. Additionally multiple other hospitals have refused transfer. Surgery with plans for extra long trach insertion. Patient states that he is having generalized pain and also significant discomfort in his throat IV Dilaudid was increased to every 2 hours. He remains on IV Solu-Cortef. He remains on TPN lipids. Patient is been off of vasopressor support. He continues on IV Zosyn. Chest x-ray today reveals bibasilar opacities favor atelectasis. He remains afebrile. 03/22/2024 Patient evaluated in follow-up in intensive care unit with family at the bedside. He is agitated today he does state that his throat is hurting still. Pending follow-up from general surgery with further recommendations for an extra long trach insertion. He remains on the mechanical ventilator at this time. Continues on TPN and lipids. Remains on IV Zosyn. Chest x-ray today reveals bibasilar acute infiltrates and tiny bilateral pleural effusions. Potassium 3.5 03/23/2024 Patient seen in follow-up with multiple consultations following. Pulmonary will be performing a bronchoscopy and further evaluation of this tracheal stenosis. Attempted multiple tertiary centers for transfer and patient was denied transfers. Patient currently maintained on mechanical ventilation and will await official pulmonary report. Review of Systems Constitutional: Denied any fatigue denied any fever. Cardio vascular: denied any chest pain, palpitations Gastrointestinal: denied any nausea, vomiting, diarrhea Pulmonary: Denied any shortness of breath, reports cough, reports sore throat Neurologic denied any new focal deficits All inpatient medications were reviewed and appropriate changes in these medications as dictated in the interval history and assessment and plan. PHYSICAL EXAMINATION: GENERAL: The patient is asleep although arousable, alert and oriented x3, not in any acute distress. Well developed, well nourished. Intubated. Tracheostomy covered with dressing. HEENT: Pupils are round and equally reacting to light. EOMI. No scleral icterus. No conjunctival pallor. Normocephalic, atraumatic. No pharyngeal erythema. No thyromegaly. CARDIOVASCULAR: S1 and S2 present. No murmurs, rubs, or gallops. PULMONARY: Chest is clear to auscultation, no wheezing or crackles. ABDOMEN: Soft, nontender, nondistended, normoactive bowel sounds. No palpable organomegaly. Central abdominal wound with similar to colostomy bag in place connected to fecal management system MUSCULOSKELETAL: No joint swelling or deformity. EXTREMITIES: No cyanosis, clubbing, or pedal edema. NEUROLOGICAL: Gross neurological examination did not reveal any focal deficits. Diffuse weakness. Contractures on hands bilaterally. SKIN: No rashes. 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 Patient was transferred back on 03/17 for increased hypoxia and respiratory distress Continue on Zosyn. ID team on the case. Multiple attempts to transfer the patient to tertiary care center, [facility] Some other options include [facility] and [facility] who had full capacity in the last few days that this might change later General surgery following with plans for extra long trach placement, pulmonary performed bronchoscopy for evaluation and was able to place an extra line #6 Shiley catheter successfully Continue with TPN Continue with IV hydrocortisone 50 mg 3 times daily Continue with IV fluid Ringer lactate Continue therapeutic dose of Lovenox 80 mg twice daily. Due to multiple complex medical issues, overall prognosis is guarded The impression and plan of care has been dictated by Alyssa Hernandez, Nurse Practitioner as directed. Dr. Mo MD I have performed a history and physical examination and medical decision making of this patient, discussed the same with the dictator, and agree with the dictators assessment and plan as written, documented as a scribe. Based on total visit time, I have performed more than 50% of this visit. Plan Objective - Vital Signs Vital signs: Vital Signs Temp 97.2 F L 03/23/24 08:00 Pulse 53 L 03/23/24 08:00 Resp 28 H 03/23/24 08:00 BP 117/58 03/23/24 07:00 Pulse Ox 99 03/23/24 08:00 FiO2 30 03/23/24 08:00 Intake & Output 03/22/24 03/23/24 03/23/24 18:59 06:59 18:59 Intake Total 0524.035 8769.689 241 Output Total 725 1425 330 Balance 1178.047 460.689 -89 Weight 99 kg Intake: IV 1186 1236 181 3cc/hr [place] 36 36 6 Lactated Ringers 1,000 ml 675 900 150 @ 75 mls/hr IV .[id number] ANNIE Rx#:[id number] Mvi, Adult No.4 with Vit 300 K 10 ml Trace (Conc-1Ml/ Dose) 1 ml Sodium Chloride 4Meq/ml Vial 100 meq Potassium Acetate 40 meq Calcium Gluconate 1 gm Magnesium Sulfate gm 1 .5 gm Sodium Phosphate 21 mmol In Amino Acids 5 %/ Dextrose 20 % 1,000 ml @ 30 mls/hr IV .Q24H ANNIE Rx #:[id number] Piperacillin-Tazobactam 3 175 300 25 .375 gm In Sodium Chloride 0.9% 100 ml @ 25 mls/hr IVPB Q8HR ANNIE Rx# :[id number] Intake, IV Titration 672.047 649.689 60 Amount Mvi, Adult No.4 with Vit 60 360 60 K 10 ml Trace (Conc-1Ml/ Dose) 1 ml Sodium Chloride 4Meq/ml Vial 140 meq Potassium Acetate 60 meq Calcium Gluconate 1 gm Magnesium Sulfate gm 1 .5 gm Sodium Phosphate 21 mmol In Amino Acids 5 %/ Dextrose 20 % 1,000 ml @ 30 mls/hr IV .Q24H ANNIE Rx #:[id number] Potassium Chloride 20 meq 250 In Water For Injection 1 100ml.bag @ 50 mls/hr IVPB Q2H ANNIE Rx#: [id number] propofoL 1,000 mg In 362.047 289.689 Empty Bag 1 bag @ 15 MCG/ KG/MIN 8.235 mls/hr IV . Q12H9M ANNIE Rx#:[id number] Other 45 Output: Urine 425 425 330 Stool 300 1000 Other: Voiding Method Indwelling Catheter Indwelling Catheter ABP, PAP, CO, CI - Last Documented Arterial Blood Pressure 118/54 - Labs CBC & Chem 7: 03/23/24 05:05 03/23/24 05:05 Labs: Abnormal Lab Results - Last 24 Hours (Table) 03/23/24 03/23/24 03/23/24 Range/Units 04:34 05:05 05:05 RBC 3.16 L (4.30-5.90) m/uL Hgb 8.0 L (13.0-17.5) gm/dL Hct 25.9 L (39.0-53.0) % MCHC 30.8 L (31.0-37.0) g/dL RDW 16.3 H (11.5-15.5) % ABG pH 7.52 H (7.35-7.45) ABG pCO2 28 L (35-45) mmHg ABG O2 Saturation 98.3 H (94-97) % Hemoglobin 8.0 L (13.0-17.5) gm/dL Sodium 132 L (137-145) mmol/L Carbon Dioxide 20 L (22-30) mmol/L Creatinine 0.52 L (0.66-1.25) mg/dL
[2024-03-23 23:21] LABS: Glucose,Whole Blood 111 mg/dL (70-110)
[2024-03-24 04:42] LABS: ABG Base Excess 0.7 mmol/L; ABG HCO3 23 mmol/L (21-25); ABG Oxygen Saturation 98.1 % (94-97); ABG PCO2 29 mmHg (35-45); ABG PH 7.52 (7.35-7.45); ABG PO2 88 mmHg (83-108); ABG TCO2 24 mmol/L (19-24)
--- NOTE | 2024-03-24 04:51 | P.PN ---
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 Tracheostomy has been removed the patient has been intubated and transferred back to the ICU. Patient is status post tracheostomy procedure completed on 03/23/2024. On today's evaluation that is 03/23/2023, patient has been afebrile, patient is breathing comfortably and is currently on vent through the trach patient is awake and alert try to communicate control communication limited because of vent no vomiting or diarrhea has been reported. Patient white count is 6.7, creatinine 0.52 Objective - Vital Signs Vital signs: Vital Signs Temp 97.4 F L 03/23/24 13:00 Pulse 52 L 03/23/24 14:00 Resp 27 H 03/23/24 14:00 BP 91/41 03/23/24 13:00 Pulse Ox 97 03/23/24 14:00 FiO2 30 03/23/24 13:00 Intake & Output 03/22/24 03/23/24 03/23/24 18:59 06:59 18:59 Intake Total 3841.077 1296.689 1017.298 Output Total 725 1425 500 Balance 1178.047 460.689 517.298 Weight 99 kg 99 kg Intake: IV 1186 1236 749 3cc/hr [place] 36 36 24 Lactated Ringers 1,000 ml 675 900 600 @ 75 mls/hr IV .[id number] ANNIE Rx#:[id number] Mvi, Adult No.4 with Vit 300 K 10 ml Trace (Conc-1Ml/ Dose) 1 ml Sodium Chloride 4Meq/ml Vial 100 meq Potassium Acetate 40 meq Calcium Gluconate 1 gm Magnesium Sulfate gm 1 .5 gm Sodium Phosphate 21 mmol In Amino Acids 5 %/ Dextrose 20 % 1,000 ml @ 30 mls/hr IV .Q24H ANNIE Rx #:[id number] Piperacillin-Tazobactam 3 175 300 125 .375 gm In Sodium Chloride 0.9% 100 ml @ 25 mls/hr IVPB Q8HR ANNIE Rx# :[id number] Intake, IV Titration 672.047 649.689 268.298 Amount Mvi, Adult No.4 with Vit 60 360 60 K 10 ml Trace (Conc-1Ml/ Dose) 1 ml Sodium Chloride 4Meq/ml Vial 140 meq Potassium Acetate 60 meq Calcium Gluconate 1 gm Magnesium Sulfate gm 1 .5 gm Sodium Phosphate 21 mmol In Amino Acids 5 %/ Dextrose 20 % 1,000 ml @ 30 mls/hr IV .Q24H ANNIE Rx #:[id number] Norepinephrine 4 mg In 8.298 Sodium Chloride 0.9% 250 ml @ 0.03 MCG/KG/MIN 11. 316 mls/hr IV .[id number] ANNIE Rx#:[id number] Potassium Chloride 20 meq 250 In Water For Injection 1 100ml.bag @ 50 mls/hr IVPB Q2H ANNIE Rx#: [id number] propofoL 1,000 mg In 362.047 289.689 200 Empty Bag 1 bag @ 15 MCG/ KG/MIN 8.235 mls/hr IV . Q12H9M ANNIE Rx#:[id number] Other 45 Output: Urine 425 425 500 Stool 300 1000 Other: Voiding Method Indwelling Catheter Indwelling Catheter ABP, PAP, CO, CI - Last Documented Arterial Blood Pressure 117/46 - Exam GENERAL DESCRIPTION: Middle-age man intubated through the trach RESPIRATORY SYSTEM: Unlabored breathing , decreased intensity of breath sounds HEART: S1 S2 regular rate and rhythm , ABDOMEN: Soft , no tenderness - Labs CBC & Chem 7: 03/23/24 05:05 03/23/24 05:05 Labs: Abnormal Lab Results - Last 24 Hours (Table) 03/23/24 03/23/24 03/23/24 Range/Units 04:34 05:05 05:05 RBC 3.16 L (4.30-5.90) m/uL Hgb 8.0 L (13.0-17.5) gm/dL Hct 25.9 L (39.0-53.0) % MCHC 30.8 L (31.0-37.0) g/dL RDW 16.3 H (11.5-15.5) % ABG pH 7.52 H (7.35-7.45) ABG pCO2 28 L (35-45) mmHg ABG O2 Saturation 98.3 H (94-97) % Hemoglobin 8.0 L (13.0-17.5) gm/dL Sodium 132 L (137-145) mmol/L Carbon Dioxide 20 L (22-30) mmol/L Creatinine 0.52 L (0.66-1.25) mg/dL Assessment and Plan (1) Pneumonia Current Visit: No Status: Acute Code(s): J18.9 - PNEUMONIA, UNSPECIFIED ORGANISM SNOMED Code(s): 763751238 (2) Sepsis Current Visit: No Status: Acute Code(s): A41.9 - SEPSIS, UNSPECIFIED ORGANISM SNOMED Code(s): 89940606 Plan: 1patient presented to hospital with sepsis in this patient who did have a low- grade fever elevated white count tachycardia meeting criteria for SIRS source likely pneumonia at this patient presenting with increasing shortness of breath cough with evidence of right-sided infiltrate, patient has been admitted to the hospital and will need to cover for resistant gram-positive as well as gram- negative 2-patient is status post bronchoscopy and lavage completed on 03/02/2024 cultures currently growing Pseudomonas that is resistant to cefepime, with repeat bronchoscopy on 03/17/2024 and grew Pseudomonas again sensitive to Zosyn 3-patient remains to be afebrile white count has been normal, status post repeat tracheostomy procedure on 03/23/2023, will continue the patient on Zosyn for another few days postprocedure and monitor clinical course closely Dictation was produced using [employer] dictation software. please excuse any grammatical, word or spelling errors. Time with Patient: Less than 30
[2024-03-24 05:30] LABS: Allen Test Performed? NO
[2024-03-24 05:34] LABS: Glucose,Whole Blood 93 mg/dL (70-110)
[2024-03-24 05:57] LABS: Anisocytosis Slight; Basophils % (A) 0 %; Eosinophils % (A) 1 %; HCT 25.8 % (39.0-53.0); HGB 7.8 gm/dL (13.0-17.5); Hypochromasia Marked; Lymphocytes # (A) 1.4 k/uL (1.0-4.8); Lymphocytes % (A) 26 %; MCH 24.7 pg (25.0-35.0); MCHC 30.2 g/dL (31.0-37.0); Mean Platelet Volume 9.7; Monocytes # (A) 0.3 k/uL (0-1.0); Monocytes % (A) 6 %; Neutrophils # (A) 3.5 k/uL (1.3-7.7); Neutrophils % (A) 66 %; Platelet Count 249 k/uL (150-450); Poikilocytosis Slight; RBC 3.15 m/uL (4.30-5.90); RDW 16.3 % (11.5-15.5); WBC 5.2 k/uL (3.8-10.6)
[2024-03-24 06:11] LABS: African American GFR (CKD) >90 (>60 ml/min/1.73 sqM); Anion Gap 10 mmol/L; Blood Urea Nitrogen 9 mg/dL (9-20); Calcium 8.3 mg/dL (8.4-10.2); Carbon Dioxide 19 mmol/L (22-30); Chloride 107 mmol/L (98-107); Glucose 92 mg/dL (74-99); Magnesium 1.9 mg/dL (1.6-2.3); Non-African American GFR(CKD) >90 (>60 ml/min/1.73 sqM); Potassium 3.4 mmol/L (3.5-5.1); Sodium 136 mmol/L (137-145)
--- NOTE | 2024-03-24 07:47 | P.PN ---
Progress Note - Text Progress Note Date: 03/23/24 HISTORY OF PRESENT ILLNESS: Patient remains in ICU. No acute events overnight PHYSICAL EXAM: VITAL SIGNS: Reviewed. GENERAL: No acute distress HEENT: Prior tracheostomy site covered with gauze and compression dressing ASSESSMENT: 1. Acute hypoxic respiratory failure. Patient status post removal of tracheostomy tube March 17, 2024 and reintubated. 2. History of tracheal stenosis PLAN: -Pulmonology performed bronchoscopy and insertion of new tracheostomy and removed orotracheal tube -Continue ICU care [facility] [phone]
--- NOTE | 2024-03-24 08:08 | XR ---
EXAMINATION TYPE: XR chest 1V portable DATE OF EXAM: 03/24/2024 CLINICAL HISTORY: Difficulty breathing progress study. TECHNIQUE: Single AP portable semiupright view of the chest is obtained. COMPARISON: Chest x-ray from one day earlier any older studies. FINDINGS: Interval removal of endotracheal and orogastric tubes. New Tracheostomy tube is present. Left-sided central venous catheter is redemonstrated. Persistent bibasilar opacities. Cardiac silhouette size is stable and upper limits of normal. Surgica l clips in the right lower neck are redemonstrated. Osseous structures are intact. IMPRESSION: Bibasilar acute infiltrates and/or atelectasis and small to tiny bilateral pleural effusi ons remain present. No significant change from one day earlier. [facility], , 03/24/2024 8:06 AM
[2024-03-24] MEDS ORDERED: LORazepam 2 MG/ML INJ IM PRN (08:10)
--- NOTE | 2024-03-24 09:54 | P.PN ---
Subjective Progress Note Date: 03/24/24 On 03/23/2024, the patient is being seen for a follow-up. The patient remains intubated on the mechanical ventilator. The patient is well-known to me. The patient has history of acute on top of chronic hypoxic and hypercapnic respiratory failure and he required intubation on 02/26/2024. He does have chr onic respiratory insufficiency due to poor ability to perform pulmonary toileting and a weak cough and he has developed recurrent pneumonias with gram- negative and MRSA. Note that sputum samples from 02/26/2024 were positive for Pseudomonas aeruginosa. The patient required intubation mechanical ventilation initially on 02/26/2024. He required several bronchoscopies that showed purulent respiratory secretions and mucous plugging contributing to his respiratory failure. My recommendation at that time was to proceed with tracheostomy . Tracheostomy tube insertion that was inserted on 03/05/2024 and the patient was weaned off the mechanical ventilator. He also has a component of tracheal stenosis and this is a site of the previously tracheostomy tube. Subsequently, the patient got released out of the intensive care unit to be readmitted back to the intensive care unit as a rapid response team was called on this patient for increased respiratory distress. The patient was receiving b ag valve mask ventilation and he was still hypoxic. At that point, the decision by Dr. Munoz was made to wean the patient orally and the tracheostomy tube was removed and the patient was connected back to the mechanical ventilator and started on sedation with propofol and Nimbex for paralysis. Since then, the patient remains intubated on a mechanical ventilator. This morning, he is on a assist-control mode at rate of 28 with a tidal volume of 450, FiO2 of 30% with a PEEP of 5. He remains on lactated Ringer at rate of 75 cc an hour. TPN is running at 30 cc an hour. His most recent cultures from the bronchioloalveolar lavage on 03/17/2024 was still showing Pseudomonas aeruginosa and the patient remains on IV Zosyn. He is on Propofol at 50 mcg/kg/min. The blood gas from today showed a pH of 7.52 with a pCO2 of 28 and pO2 of 92. White cell count 6.7 with a hemoglobin of 8 and a platelet count of 257. BUN 11 creatinine 0.5 and a sodium level is at 132. His chest x-ray from today shows no significant consolidation or airspace disease. Some atelectatic changes in lung bases and s mall subpulmonic pleural effusion. ET tube is around 5 cm above the avery. Labs from today showed a white cell count of 6.7 with a hemoglobin of 8 and a platelet count of 157, sodium is at 132, potassium is at 3.8, bicarb is at 20 with a BUN of 11 and a creatinine of 0.52. He does have chronic muscle atrophy lower extremities bilaterally. Profound weakness in all 4 extremities. Adequate cough. On today's evaluation of 03/24/2024, the patient is awake while being on propofol at 50 mcg/kg/min and the patient is responding and communicating. Noted the tracheostomy tube was inserted yesterday and the patient is a extra long #[address] He is ventilating and oxygenating adequately. This morning, he is on assist-control mode of mechanical ventilation at rate of 20, tidal volume of 450, FiO2 30% with a PEEP of 5. He remains on TPN at rate of 30 cc an hour. He briefly required some pressors yesterday and currently is off norepinephrine. Lactated Ringer's running at a rate of 75 cc an hour and the patient remains on TPN for nutritional support. Output from the ileostomy is considerably high as noted. The patient remains on IV Zosyn. A follow-up chest x-ray from today shows tracheostomy tube being in good location. The patient continues to have bibasilar atelectatic changes/infiltrates with tiny effusions. The patient continues to have copious amount of respiratory secretions through his tracheostomy tube and around his tracheostomy stoma. No fever. Hemodynamically stable. Blood work from today shows a white cell count of 5.2, hemoglobin 7.8 and a platelet count of 249. Sodium is at 136, BUN is at 9 with a creatinine of 0.48. Serum bicarb is at 19. He is arousable. Communicating. Awake. Profoundly weak in all 4 extremities. Extensive muscle atrophy in all 4 extremities. Objective - Vital Signs Vital signs: Vital Signs Temp 98.9 F 03/24/24 04:00 Pulse 52 L 03/24/24 07:00 Resp 28 H 03/24/24 07:00 BP 89/45 03/23/24 15:00 Pulse Ox 97 03/24/24 07:00 FiO2 30 03/24/24 07:57 Intake & Output 03/23/24 03/24/24 03/24/24 18:59 06:59 18:59 Intake Total 7055.568 4673.788 78 Output Total 1625 1705 75 Balance -80.372 -575.212 3 Weight 99 kg 96.3 kg Intake: IV 1083 936 78 3cc/hr [place] 33 36 3 Lactated Ringers 1,000 ml 825 900 75 @ 75 mls/hr IV .[id number] ANNIE Rx#:[id number] Piperacillin-Tazobactam 3 225 .375 gm In Sodium Chloride 0.9% 100 ml @ 25 mls/hr IVPB Q8HR ANNIE Rx# :[id number] Intake, IV Titration 461.628 193.788 Amount Mvi, Adult No.4 with Vit 60 K 10 ml Trace (Conc-1Ml/ Dose) 1 ml Sodium Chloride 4Meq/ml Vial 140 meq Potassium Acetate 60 meq Calcium Gluconate 1 gm Magnesium Sulfate gm 1 .5 gm Sodium Phosphate 21 mmol In Amino Acids 5 %/ Dextrose 20 % 1,000 ml @ 30 mls/hr IV .Q24H ANNIE Rx #:[id number] Norepinephrine 4 mg In 8.298 Sodium Chloride 0.9% 250 ml @ 0.03 MCG/KG/MIN 11. 316 mls/hr IV .[id number] ANNIE Rx#:[id number] propofoL 1,000 mg In 393.330 193.788 Empty Bag 1 bag @ 15 MCG/ KG/MIN 8.235 mls/hr IV . Q12H9M ANNIE Rx#:[id number] Output: Urine 725 1105 75 Stool 900 600 Other: Voiding Method Indwelling Catheter Indwelling Catheter ABP, PAP, CO, CI - Last Documented Arterial Blood Pressure 106/42 - Exam GENERAL: A 48-year-old male patient, attached to the mechanical ventilator and the patient has a Shiley tracheostomy tube in place. Head exam was generally normal. There was no scleral icterus or corneal arcus. Mucous membranes were moist. HEENT: No scleral icterus. No conjunctival pallor. Normocephalic, atraumatic. CARDIOVASCULAR: S1 and S2 present. No murmurs, rubs, or gallops. PULMONARY: Diminished breath sounds were bilaterally. No wheezes rhonchi or crackles ABDOMEN: Soft, nontender, nondistended, normoactive bowel sounds. No palpable organomegaly. Functioning ileostomy. 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 EXTREMITIES: No cyanosis, clubbing, or pedal edema. NEUROLOGICAL: Profound weakness in all 4 extremities, weak cough, extensive muscle atrophy in all 4 extremities. Arousable and awake and follows simple commands and communicates. SKIN: No rashes. Left chest PICC line. - Labs CBC & Chem 7: 03/24/24 05:35 03/24/24 05:35 Labs: Abnormal Lab Results - Last 24 Hours (Table) 03/23/24 03/24/24 03/24/24 Range/Units 23:19 04:40 05:35 RBC (4.30-5.90) m/uL Hgb (13.0-17.5) gm/dL Hct (39.0-53.0) % MCH (25.0-35.0) pg MCHC (31.0-37.0) g/dL RDW (11.5-15.5) % ABG pH 7.52 H (7.35-7.45) ABG pCO2 29 L (35-45) mmHg ABG O2 Saturation 98.1 H (94-97) % Hemoglobin 8.0 L (13.0-17.5) gm/dL Sodium 136 L (137-145) mmol/L Potassium 3.4 L (3.5-5.1) mmol/L Carbon Dioxide 19 L (22-30) mmol/L Creatinine 0.48 L (0.66-1.25) mg/dL POC Glucose (mg/dL) 111 H (70-110) mg/dL Calcium 8.3 L (8.4-10.2) mg/dL 03/24/24 Range/Units 05:35 RBC 3.15 L (4.30-5.90) m/uL Hgb 7.8 L (13.0-17.5) gm/dL Hct 25.8 L (39.0-53.0) % MCH 24.7 L (25.0-35.0) pg MCHC 30.2 L (31.0-37.0) g/dL RDW 16.3 H (11.5-15.5) % ABG pH (7.35-7.45) ABG pCO2 (35-45) mmHg ABG O2 Saturation (94-97) % Hemoglobin (13.0-17.5) gm/dL Sodium (137-145) mmol/L Potassium (3.5-5.1) mmol/L Carbon Dioxide (22-30) mmol/L Creatinine (0.66-1.25) mg/dL POC Glucose (mg/dL) (70-110) mg/dL Calcium (8.4-10.2) mg/dL Assessment and Plan Plan: Acute hypoxic and hypercapnic respiratory failure, requiring mechanical intubation on 02/26/24. The patient is known to have chronic respiratory insufficiency as the patient has poor ability to perform pulmonary toileting, weak cough, and has had recurrent pneumonias with gram-negative and MRSA. Most recent sputum sample from 02/26/2024 is positive for Pseudomonas aeruginosa and the patient is currently on IV cefepime. Patient failed BiPAP therapy during this current admission the patient had to be intubated and placed on the mechanical ventilator on 02/26/2024. The patient was given a trial of extubation on 03/01/2024 and within 2 hours of extubation he had to be reintub ated for increased work of breathing and hypoxic respiratory failure. Bronchoscopy was done on 03/02/2024 and 03/03/2024 revealed copious amount of purulent respiratory secretions and mucous plugs which probably contributing to his ongoing respiratory failure. The patient has poor ability to cough and perform pulmonary toileting and clear his respiratory secretions. 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 The bronchoalveolar lavage is showing Pseudomonas aeruginosa and the repeat cultures from 03/17/2024 was still positive for Pseudomonas aeruginosa and the sensitivities were noted and the patient remains on IV Zosyn. . The patient is status post tracheostomy tube insertion on 03/05/2024. Due to failure of ongoing mechanical ventilation and mucous plugging, the patient was reintubated on 03/17/2024 and since then the patient remains on the mechanical ventilator. Subsequently, the ET tube was removed and a tracheostomy tube #6 Shiley was inserted. Oxygenating and ve ntilating adequately. Most recent chest x-ray from 03/24/2023 showed some bibasilar pulmonary atelectatic changes/infiltrates. Respiratory secretions continue to be abundant. Tracheal stenosis at the site of the previously inserted tracheostomy tube, visualized on most recent bronchoscopy Previous history of recurrent ventilator dependent respiratory failure, secondary to pneumonia and mucous plugging. The patient has undergone previous bronchoscopies and cultures from bronchoscopy on 12/31/2023 was positive for MRSA and subsequent bronchoscopy on 01/03/2024 was positive for Klebsiella pneu moniae and Bella glabrata. Most recent sputum analysis from 02/26/2024 and 03/17/2024 was positive for Pseudomonas aeruginosa and the patient is currently on IV Zosyn. Sepsis secondary to above, recurrent pneumonia, currently on no pressors Leukocytosis, resolved Crohn's disease, with previous complication of bowel perforation s/p colectomy and diverting ileostomy. The patient also has had previous history of abdominal wall bleeding there is currently inactive and stable. The patient has a high output ileostomy TPN for nutritional support Electrolyte imbalance at time of admission including hyponatremia, hypokalemia, hypophosphatemia, hypomagnesemia and hyperphosphatemia, all resolved Tracheobronchomalacia History of DVT, on therapeutic dose of Lovenox CVA/TIA, with residual left-sided weakness Right BKA History of asystole/cardiac arrest in 2021 Plan: Patient is awake Wean off propofol and discontinue Ativan for anxiety Continue vent support, and switch this patient to a pressure support of 10 and a PEEP of 5 Continue IV Zosyn Frequent suctioning and pulmonary toileting the patient is also having purulent secretions at his tracheostomy stoma which is secondary to ongoing pseudomonal infection/pneumonia. Continue TPN for nutritional support Monitor his ileostomy output and the patient continues to have high output Continue Lovenox for previous history of DVT, therapeutic dose Critical care evaluation done more than 30 minutes. Time with Patient: Greater than 30
[2024-03-24] MEDS: POTASSIUM CHLORIDE 20 MEQ in WATER FOR INJECTION 1 100ML.BAG IVPB SCH (10:16)
[2024-03-24] MEDS: MAGNESIUM SULFATE-D5W PMX 1 GM in DEXTROSE/WATER 1 100ML.BAG IVPB ONE (10:16)
[2024-03-24] MEDS: LORazepam 2 MG/ML INJ IV PRN (10:20)
[2024-03-24 12:18] LABS: Glucose,Whole Blood 103 mg/dL (70-110)
--- NOTE | 2024-03-24 15:17 | P.PN ---
Subjective Progress Note Date: 03/24/24 SURGICAL PROGRESS NOTE CHIEF COMPLAINT: Respiratory failure HISTORY OF PRESENT ILLNESS: Patient remains in ICU. Patient is status post bronchoscopy with insertion of new tracheostomy and removed orotracheal tube by pulmonary service. Patient oxygen saturation is adequate. Afebrile. PHYSICAL EXAM: VITAL SIGNS: Reviewed. GENERAL: No acute distress HEENT: Tracheostomy site clean dry and intact ASSESSMENT: 1. Acute hypoxic respiratory failure status post new tracheostomy placement during bronchoscopy by pulmonary service 2. History of tracheal stenosis PLAN: -Continue ICU management -Continue supportive care Physician Roving Department Supervisor note has been reviewed by physician. Signing provider agrees with the documented findings, assessment, and plan of care. Objective - Vital Signs Vital signs: Vital Signs Temp 98.4 F 03/24/24 11:00 Pulse 64 03/24/24 12:39 Resp 28 H 03/24/24 11:00 BP 108/51 03/24/24 07:15 Pulse Ox 96 03/24/24 11:00 FiO2 30 03/24/24 11:43 Intake & Output 03/23/24 03/24/24 03/24/24 18:59 06:59 18:59 Intake Total 4690.490 6089.788 301.753 Output Total 1625 1705 475 Balance -80.372 -475.212 -173.247 Weight 99 kg 96.3 kg Intake: IV 1083 936 165 3cc/hr [place] 33 36 15 Lactated Ringers 1,000 ml 825 900 150 @ 75 mls/hr IV .[id number] ANNIE Rx#:[id number] Piperacillin-Tazobactam 3 225 .375 gm In Sodium Chloride 0.9% 100 ml @ 25 mls/hr IVPB Q8HR ANNIE Rx# :[id number] Intake, IV Titration 461.628 293.788 136.753 Amount Mvi, Adult No.4 with Vit 60 K 10 ml Trace (Conc-1Ml/ Dose) 1 ml Sodium Chloride 4Meq/ml Vial 140 meq Potassium Acetate 60 meq Calcium Gluconate 1 gm Magnesium Sulfate gm 1 .5 gm Sodium Phosphate 21 mmol In Amino Acids 5 %/ Dextrose 20 % 1,000 ml @ 30 mls/hr IV .Q24H ANNIE Rx #:[id number] Norepinephrine 4 mg In 8.298 99.329 Sodium Chloride 0.9% 250 ml @ 0.03 MCG/KG/MIN 11. 316 mls/hr IV .[id number] ANNIE Rx#:[id number] propofoL 1,000 mg In 393.330 293.788 37.424 Empty Bag 1 bag @ 15 MCG/ KG/MIN 8.235 mls/hr IV . Q12H9M ANNIE Rx#:[id number] Output: Urine 725 1105 475 Stool 900 600 Other: Voiding Method Indwelling Catheter Indwelling Catheter ABP, PAP, CO, CI - Last Documented Arterial Blood Pressure 109/41 - Labs CBC & Chem 7: 03/24/24 05:35 03/24/24 05:35 Labs: Abnormal Lab Results - Last 24 Hours (Table) 03/23/24 03/24/24 03/24/24 Range/Units 23:19 04:40 05:35 RBC (4.30-5.90) m/uL Hgb (13.0-17.5) gm/dL Hct (39.0-53.0) % MCH (25.0-35.0) pg MCHC (31.0-37.0) g/dL RDW (11.5-15.5) % ABG pH 7.52 H (7.35-7.45) ABG pCO2 29 L (35-45) mmHg ABG O2 Saturation 98.1 H (94-97) % Hemoglobin 8.0 L (13.0-17.5) gm/dL Sodium 136 L (137-145) mmol/L Potassium 3.4 L (3.5-5.1) mmol/L Carbon Dioxide 19 L (22-30) mmol/L Creatinine 0.48 L (0.66-1.25) mg/dL POC Glucose (mg/dL) 111 H (70-110) mg/dL Calcium 8.3 L (8.4-10.2) mg/dL 03/24/24 Range/Units 05:35 RBC 3.15 L (4.30-5.90) m/uL Hgb 7.8 L (13.0-17.5) gm/dL Hct 25.8 L (39.0-53.0) % MCH 24.7 L (25.0-35.0) pg MCHC 30.2 L (31.0-37.0) g/dL RDW 16.3 H (11.5-15.5) % ABG pH (7.35-7.45) ABG pCO2 (35-45) mmHg ABG O2 Saturation (94-97) % Hemoglobin (13.0-17.5) gm/dL Sodium (137-145) mmol/L Potassium (3.5-5.1) mmol/L Carbon Dioxide (22-30) mmol/L Creatinine (0.66-1.25) mg/dL POC Glucose (mg/dL) (70-110) mg/dL Calcium (8.4-10.2) mg/dL
--- NOTE | 2024-03-24 18:14 | P.PN ---
Subjective Progress Note Date: 03/24/24 Patient is eval today in the intensive care unit. Patient remains intubated and on mechanical ventilator. Tracheostomy has dressing over it. No plans for transfer at this time he was denied at of in [facility] secondary to wait list for transfer. Additionally multiple other hospitals have refused transfer. Surgery with plans for extra long trach insertion. Patient states that he is having generalized pain and also significant discomfort in his throat IV Dilaudid was increased to every 2 hours. He remains on IV Solu-Cortef. He remains on TPN lipids. Patient is been off of vasopressor support. He continues on IV Zosyn. Chest x-ray today reveals bibasilar opacities favor atelectasis. He remains afebrile. 03/22/2024 Patient evaluated in follow-up in intensive care unit with family at the bedside. He is agitated today he does state that his throat is hurting still. Pending follow-up from general surgery with further recommendations for an extra long trach insertion. He remains on the mechanical ventilator at this time. Continues on TPN and lipids. Remains on IV Zosyn. Chest x-ray today reveals bibasilar acute infiltrates and tiny bilateral pleural effusions. Potassium 3.5 03/23/2024 Patient seen in follow-up with multiple consultations following. Pulmonary will be performing a bronchoscopy and further evaluation of this tracheal stenosis. Attempted multiple tertiary centers for transfer and patient was denied transfers. Patient currently maintained on mechanical ventilation and will await official pulmonary report. 03/24/2024 Patient seen follow-up today continues to be in the ICU with multiple consultations following. Patient remains on IV antibiotics with infectious disease following for pseudomonal infection will continue on Zosyn. Patient also continues on TPN and has been n.p.o. since reintubation. Yesterday patient underwent bronchoscopy with pulmonary nail technician teacher with removal of oral tracheal tube and placement of extra long #6 Shiley tracheostomy tube. Patient is on assist mode and tolerating. Blood pressure is on the lower side requiring low- dose Levophed and is continued on low-dose propofol. Wean off propofol and continue with Ativan as needed along with pain medications. Patient continues to have significant amounts of pain at the tracheal site and is maintained on Dilaudid along with oral [place] and Toradol. Not much adjusting as blood pressures are soft although will attempt to control pain better. Will need to discuss further with consultations regarding discharge planning with case management/social work following if there is a discharge plan to [facility]. Patient will require extensive wound care as well as IV antibiotic therapy and frequent respiratory care including frequent suctioning. Patient not quite ready as of yet. Patient asking if he can eat again and will reconsult speech for evaluation. Review of Systems Constitutional: Denied any fatigue denied any fever. Cardio vascular: denied any chest pain, palpitations Gastrointestinal: denied any nausea, vomiting, diarrhea, reports to feeling hungry and requesting to eat Pulmonary: Denied any shortness of breath, reports cough, reports sore throat and pain at the trach site Neurologic denied any new focal deficits All inpatient medications were reviewed and appropriate changes in these medications as dictated in the interval history and assessment and plan. PHYSICAL EXAMINATION: GENERAL: The patient is awake, alert and oriented x3, not in any acute distress. Mildly anxious. Well developed, well nourished. Assist mode on the vent. HEENT: Pupils are round and equally reacting to light. EOMI. No scleral icterus. No conjunctival pallor. Normocephalic, atraumatic. No pharyngeal erythema. No thyromegaly. CARDIOVASCULAR: S1 and S2 present. No murmurs, rubs, or gallops. PULMONARY: Chest is clear to auscultation, no wheezing or crackles. Bronchial congestion noted ABDOMEN: Soft, nontender, nondistended, normoactive bowel sounds. No palpable organomegaly. Central abdominal wound with similar to colostomy bag in place connected to fecal management system MUSCULOSKELETAL: No joint swelling or deformity. EXTREMITIES: No cyanosis, clubbing, or pedal edema. Bilateral upper and lower extremity swelling with muscle wasting also noted NEUROLOGICAL: Gross neurological examination did not reveal any focal deficits. Diffuse weakness. Contractures on hands bilaterally. SKIN: No rashes. 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 Patient was transferred back on 03/17 for increased hypoxia and respiratory distress Continue on Zosyn. ID team on the case for continued pseudomonal infection. Multiple attempts to transfer the patient to tertiary care center, patient was already been rejected by [facility] and [facility]. Some other options include [facility] and [facility] who had full capacity in the last few days that this might change later. No plans of transfer at this time Pulmonary nail technician teacher following and patient underwent bronchoscopy with extra long placement #6 Shiley cannula tracheostomy with oral tracheostomy removed Patient is requesting to eat and will reconsult speech for evaluation as patient is currently n.p.o. from previous recent intubation. Continue with TPN Continue with IV hydrocortisone 50 mg 3 times daily Continue therapeutic dose of Lovenox 80 mg twice daily. Due to multiple complex medical issues, overall prognosis is guarded The impression and plan of care has been dictated by Alyssa Hernandez, Nurse Practitioner as directed. Dr. Mo MD I have performed a history and physical examination and medical decision making of this patient, discussed the same with the dictator, and agree with the dictators assessment and plan as written, documented as a scribe. Based on total visit time, I have performed more than 50% of this visit. Plan Objective - Vital Signs Vital signs: Vital Signs Temp 98.9 F 03/24/24 04:00 Pulse 73 03/24/24 08:50 Resp 28 H 03/24/24 07:00 BP 89/45 03/23/24 15:00 Pulse Ox 97 03/24/24 07:00 FiO2 30 03/24/24 08:05 Intake & Output 03/23/24 03/24/24 03/24/24 18:59 06:59 18:59 Intake Total 1992.335 7363.788 78 Output Total 1625 1705 75 Balance -80.372 -475.212 3 Weight 99 kg 96.3 kg Intake: IV 1083 936 78 3cc/hr [place] 33 36 3 Lactated Ringers 1,000 ml 825 900 75 @ 75 mls/hr IV .[id number] [facility] Rx#:[id number] Piperacillin-Tazobactam 3 225 .375 gm In Sodium Chloride 0.9% 100 ml @ 25 mls/hr IVPB Q8HR [facility] Rx# :[id number] Intake, IV Titration 461.628 293.788 Amount Mvi, Adult No.4 with Vit 60 K 10 ml Trace (Conc-1Ml/ Dose) 1 ml Sodium Chloride 4Meq/ml Vial 140 meq Potassium Acetate 60 meq Calcium Gluconate 1 gm Magnesium Sulfate gm 1 .5 gm Sodium Phosphate 21 mmol In Amino Acids 5 %/ Dextrose 20 % 1,000 ml @ 30 mls/hr IV .Q24H [facility] Rx #:[id number] Norepinephrine 4 mg In 8.298 Sodium Chloride 0.9% 250 ml @ 0.03 MCG/KG/MIN 11. 316 mls/hr IV .[id number] [facility] Rx#:[id number] propofoL 1,000 mg In 393.330 293.788 Empty Bag 1 bag @ 15 MCG/ KG/MIN 8.235 mls/hr IV . Q12H9M [facility] Rx#:[id number] Output: Urine 725 1105 75 Stool 900 600 Other: Voiding Method Indwelling Catheter Indwelling Catheter ABP, PAP, CO, CI - Last Documented Arterial Blood Pressure 106/42 - Labs CBC & Chem 7: 03/24/24 05:35 03/24/24 05:35 Labs: Abnormal Lab Results - Last 24 Hours (Table) 03/23/24 03/24/24 03/24/24 Range/Units 23:19 04:40 05:35 RBC (4.30-5.90) m/uL Hgb (13.0-17.5) gm/dL Hct (39.0-53.0) % MCH (25.0-35.0) pg MCHC (31.0-37.0) g/dL RDW (11.5-15.5) % ABG pH 7.52 H (7.35-7.45) ABG pCO2 29 L (35-45) mmHg ABG O2 Saturation 98.1 H (94-97) % Hemoglobin 8.0 L (13.0-17.5) gm/dL Sodium 136 L (137-145) mmol/L Potassium 3.4 L (3.5-5.1) mmol/L Carbon Dioxide 19 L (22-30) mmol/L Creatinine 0.48 L (0.66-1.25) mg/dL POC Glucose (mg/dL) 111 H (70-110) mg/dL Calcium 8.3 L (8.4-10.2) mg/dL 03/24/24 Range/Units 05:35 RBC 3.15 L (4.30-5.90) m/uL Hgb 7.8 L (13.0-17.5) gm/dL Hct 25.8 L (39.0-53.0) % MCH 24.7 L (25.0-35.0) pg MCHC 30.2 L (31.0-37.0) g/dL RDW 16.3 H (11.5-15.5) % ABG pH (7.35-7.45) ABG pCO2 (35-45) mmHg ABG O2 Saturation (94-97) % Hemoglobin (13.0-17.5) gm/dL Sodium (137-145) mmol/L Potassium (3.5-5.1) mmol/L Carbon Dioxide (22-30) mmol/L Creatinine (0.66-1.25) mg/dL POC Glucose (mg/dL) (70-110) mg/dL Calcium (8.4-10.2) mg/dL
[2024-03-25 00:27] LABS: Glucose,Whole Blood 99 mg/dL (70-110)
[2024-03-25] MEDS ORDERED: POTASSIUM CHLORIDE 20 MEQ in WATER FOR INJECTION 1 100ML.BAG IVPB ONE (00:45)
[2024-03-25 03:32] LABS: Basophils % (A) 0 %; Eosinophils % (A) 1 %; HCT 27.7 % (39.0-53.0); HGB 8.1 gm/dL (13.0-17.5); Hypochromasia Marked; Lymphocytes # (A) 0.7 k/uL (1.0-4.8); Lymphocytes % (A) 14 %; MCH 24.5 pg (25.0-35.0); MCHC 29.1 g/dL (31.0-37.0); MCV 84.2 fL (80.0-100.0); Mean Platelet Volume 8.5; Monocytes # (A) 0.2 k/uL (0-1.0); Monocytes % (A) 4 %; Neutrophils # (A) 4.1 k/uL (1.3-7.7); Neutrophils % (A) 80 %; Platelet Count 227 k/uL (150-450); Poikilocytosis Slight; WBC 5.1 k/uL (3.8-10.6)
[2024-03-25 03:39] LABS: African American GFR (CKD) >90 (>60 ml/min/1.73 sqM); Anion Gap 6 mmol/L; Blood Urea Nitrogen 6 mg/dL (9-20); Calcium 8.3 mg/dL (8.4-10.2); Carbon Dioxide 23 mmol/L (22-30); Chloride 111 mmol/L (98-107); Glucose 98 mg/dL (74-99); Magnesium 2.3 mg/dL (1.6-2.3); Non-African American GFR(CKD) >90 (>60 ml/min/1.73 sqM); Potassium 3.8 mmol/L (3.5-5.1); Sodium 140 mmol/L (137-145)
[2024-03-25] MEDS: POTASSIUM CHLORIDE 20 MEQ in WATER FOR INJECTION 1 100ML.BAG IVPB ONE (04:30)
[2024-03-25 04:48] LABS: ABG Base Excess 0.7 mmol/L; ABG HCO3 25 mmol/L (21-25); ABG Oxygen Saturation 98.8 % (94-97); ABG PCO2 41 mmHg (35-45); ABG PH 7.41 (7.35-7.45); ABG PO2 102 mmHg (83-108); ABG TCO2 27 mmol/L (19-24)
[2024-03-25 05:12] LABS: Glucose,Whole Blood 94 mg/dL (70-110)
[2024-03-25 05:44] LABS: Allen Test Performed? NO
--- NOTE | 2024-03-25 08:14 | XR ---
EXAMINATION TYPE: XR chest 1V portable DATE OF EXAM: 03/25/2024 CLINICAL HISTORY: Difficulty breathing progress study. TECHNIQUE: Single AP portable semiupright view of the chest is obtained. COMPARISON: Chest x-ray from one day earlier any older studies. FINDINGS: Stable tracheostomy tube. Left-sided central venous catheter is redemonstrated. Persistent bibasilar opacities and pleural effusions. Mild Cardiomegaly is present. Surgical clips in the right lower neck are redemonstrated. Osseous structures are intact. IMPRESSION: Bibasilar acute infiltrates and/or atelectasis and small to tiny bilateral pleural effusi ons remain present. No significant change from one day earlier. [facility], , 03/25/2024 8:12 AM
--- NOTE | 2024-03-25 09:59 | P.PN ---
Subjective Progress Note Date: 03/25/24 On 03/23/2024, the patient is being seen for a follow-up. The patient remains intubated on the mechanical ventilator. The patient is well-known to me. The patient has history of acute on top of chronic hypoxic and hypercapnic respiratory failure and he required intubation on 02/26/2024. He does have chr onic respiratory insufficiency due to poor ability to perform pulmonary toileting and a weak cough and he has developed recurrent pneumonias with gram- negative and MRSA. Note that sputum samples from 02/26/2024 were positive for Pseudomonas aeruginosa. The patient required intubation mechanical ventilation initially on 02/26/2024. He required several bronchoscopies that showed purulent respiratory secretions and mucous plugging contributing to his respiratory failure. My recommendation at that time was to proceed with tracheostomy . Tracheostomy tube insertion that was inserted on 03/05/2024 and the patient was weaned off the mechanical ventilator. He also has a component of tracheal stenosis and this is a site of the previously tracheostomy tube. Subsequently, the patient got released out of the intensive care unit to be readmitted back to the intensive care unit as a rapid response team was called on this patient for increased respiratory distress. The patient was receiving b ag valve mask ventilation and he was still hypoxic. At that point, the decision by Dr. Munoz was made to wean the patient orally and the tracheostomy tube was removed and the patient was connected back to the mechanical ventilator and started on sedation with propofol and Nimbex for paralysis. Since then, the patient remains intubated on a mechanical ventilator. This morning, he is on a assist-control mode at rate of 28 with a tidal volume of 450, FiO2 of 30% with a PEEP of 5. He remains on lactated Ringer at rate of 75 cc an hour. TPN is running at 30 cc an hour. His most recent cultures from the bronchioloalveolar lavage on 03/17/2024 was still showing Pseudomonas aeruginosa and the patient remains on IV Zosyn. He is on Propofol at 50 mcg/kg/min. The blood gas from today showed a pH of 7.52 with a pCO2 of 28 and pO2 of 92. White cell count 6.7 with a hemoglobin of 8 and a platelet count of 257. BUN 11 creatinine 0.5 and a sodium level is at 132. His chest x-ray from today shows no significant consolidation or airspace disease. Some atelectatic changes in lung bases and s mall subpulmonic pleural effusion. ET tube is around 5 cm above the avery. Labs from today showed a white cell count of 6.7 with a hemoglobin of 8 and a platelet count of 157, sodium is at 132, potassium is at 3.8, bicarb is at 20 with a BUN of 11 and a creatinine of 0.52. He does have chronic muscle atrophy lower extremities bilaterally. Profound weakness in all 4 extremities. Adequate cough. On today's evaluation of 03/24/2024, the patient is awake while being on propofol at 50 mcg/kg/min and the patient is responding and communicating. Noted the tracheostomy tube was inserted yesterday and the patient is a extra long #[address] tube [address]. He is ventilating and oxygenating adequately. This morning, he is on assist-control mode of mechanical ventilation at rate of 20, tidal volume of 450, FiO2 30% with a PEEP of 5. He remains on TPN at rate of 30 cc an hour. He briefly required some pressors yesterday and currently is off norepinephrine. Lactated Ringer's running at a rate of 75 cc an hour and the patient remains on TPN for nutritional support. Output from the ileostomy is considerably high as noted. The patient remains on IV Zosyn. A follow-up chest x-ray from today shows tracheostomy tube being in good location. The patient continues to have bibasilar atelectatic changes/infiltrates with tiny effusions. The patient continues to have copious amount of respiratory secretions through his tracheostomy tube and around his tracheostomy stoma. No fever. Hemodynamically stable. Blood work from today shows a white cell count of 5.2, hemoglobin 7.8 and a platelet count of 249. Sodium is at 136, BUN is at 9 with a creatinine of 0.48. Serum bicarb is at 19. He is arousable. Communicating. Awake. Profoundly weak in all 4 extremities. Extensive muscle atrophy in all 4 extremities. 03/25/2024, the patient is doing well, off propofol, he has tolerated pressure support mode of mechanical ventilation for the past 24 hours and the patient is currently on a pressure support of 10 and a PEEP of 5. The patient wants to come off the mechanical ventilator and the patient wants to have some oral intake. I think that is reasonable. He still has a extra long #[address] tube [address]. Respiratory secretions are manageable. Chest x-ray findings are essentially unchanged and the patient is currently off pressors. Remains on lactated Ringer at rate of 75 cc an hour. Remains on IV Zosyn. Blood gas from today shows a pH of 7.41 with a pCO2 of 41 and pO2 of 102. Remains on TPN for nutritional support at rate of 30 cc an hour. No other significant events overnight. He is calm and comfortable. His white cell count is at 5.1 with a hemoglobin of 8.1 and a platelet count of 227. Sodium is at 140, BUN is at 6 with a creatinine of 0.44 Objective - Vital Signs Vital signs: Vital Signs Temp 98.2 F 03/25/24 04:00 Pulse 71 03/25/24 07:00 Resp 22 03/25/24 07:00 BP 108/51 03/24/24 22:00 Pulse Ox 98 03/25/24 07:00 FiO2 30 03/25/24 07:52 Intake & Output 03/24/24 03/25/24 03/25/24 18:59 06:59 18:59 Intake Total 7641.980 2726.948 178 Output Total 2050 675 845 Balance -322.747 715.948 -667 Weight 97.3 kg Intake: IV 811 958 78 3cc/hr [place] 36 33 3 LR 75cc/hr 525 825 75 Lactated Ringers 1,000 ml 150 @ 75 mls/hr IV .[id number] [facility] Rx#:[id number] Piperacillin-Tazobactam 3 100 100 .375 gm In Sodium Chloride 0.9% 100 ml @ 25 mls/hr IVPB Q8HR [facility] Rx# :[id number] Intake, IV Titration 916.253 432.948 100 Amount Mvi, Adult No.4 with Vit 779.5 K 10 ml Trace (Conc-1Ml/ Dose) 1 ml Sodium Chloride 4Meq/ml Vial 100 meq Potassium Acetate 60 meq Calcium Gluconate 1 gm Magnesium Sulfate gm 1 .5 gm Sodium Phosphate 21 mmol Sodium Acetate 60 meq In Amino Acids 5 %/ Dextrose 20 % 1,000 ml @ 30 mls/hr IV .Q24H [facility] Rx #:[id number] Norepinephrine 4 mg In 99.329 92.414 Sodium Chloride 0.9% 250 ml @ 0.03 MCG/KG/MIN 11. 316 mls/hr IV .[id number] [facility] Rx#:[id number] Potassium Chloride 20 meq 300 100 In Water For Injection 1 100ml.bag @ 50 mls/hr IVPB ONCE ONE Rx#: [id number] propofoL 1,000 mg In 37.424 40.534 Empty Bag 1 bag @ 15 MCG/ KG/MIN 8.235 mls/hr IV . Q12H9M [facility] Rx#:[id number] Output: Urine 1200 675 45 Stool 850 800 Other: Voiding Method Indwelling Catheter Indwelling Catheter ABP, PAP, CO, CI - Last Documented Arterial Blood Pressure 126/58 - Exam GENERAL: A 48-year-old male patient, attached to the mechanical ventilator and the patient has a Shiley tracheostomy tube in place. Head exam was generally normal. There was no scleral icterus or corneal arcus. Mucous membranes were moist. HEENT: No scleral icterus. No conjunctival pallor. Normocephalic, atraumatic. CARDIOVASCULAR: S1 and S2 present. No murmurs, rubs, or gallops. PULMONARY: Diminished breath sounds were bilaterally. No wheezes rhonchi or crackles ABDOMEN: Soft, nontender, nondistended, normoactive bowel sounds. No palpable organomegaly. Functioning ileostomy. 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 EXTREMITIES: No cyanosis, clubbing, or pedal edema. NEUROLOGICAL: Profound weakness in all 4 extremities, weak cough, extensive muscle atrophy in all 4 extremities. awake and follows simple commands and communicates. SKIN: No rashes. Left chest PICC line. - Labs CBC & Chem 7: 03/25/24 03:09 03/25/24 03:09 Labs: Abnormal Lab Results - Last 24 Hours (Table) 03/25/24 03/25/24 03/25/24 Range/Units 03:09 03:09 04:45 RBC 3.30 L (4.30-5.90) m/uL Hgb 8.1 L (13.0-17.5) gm/dL Hct 27.7 L (39.0-53.0) % MCH 24.5 L (25.0-35.0) pg MCHC 29.1 L (31.0-37.0) g/dL RDW 16.0 H (11.5-15.5) % Lymphocytes # 0.7 L (1.0-4.8) k/uL ABG Total CO2 27 H (19-24) mmol/L ABG O2 Saturation 98.8 H (94-97) % Hemoglobin 7.8 L (13.0-17.5) gm/dL Chloride 111 H (98-107) mmol/L BUN 6 L (9-20) mg/dL Creatinine 0.44 L (0.66-1.25) mg/dL Calcium 8.3 L (8.4-10.2) mg/dL Assessment and Plan Plan: Acute hypoxic and hypercapnic respiratory failure, requiring mechanical intubation on 02/26/24. The patient is known to have chronic respiratory insufficiency as the patient has poor ability to perform pulmonary toileting, weak cough, and has had recurrent pneumonias with gram-negative and MRSA. Most recent sputum sample from 02/26/2024 is positive for Pseudomonas aeruginosa and the patient is currently on IV cefepime. Patient failed BiPAP therapy during this current admission the patient had to be intubated and placed on the mechanical ventilator on 02/26/2024. The patient was given a trial of extubation on 03/01/2024 and within 2 hours of extubation he had to be reintubated for increased work of breathing and hypoxic respiratory failure. Bronchoscopy was done on 03/02/2024 and 03/03/2024 revealed copious amount of purulent respiratory secretions and mucous plugs which probably contributing to his ongoing respiratory failure. The patient has poor ability to cough and perform pulmonary toileting and clear his respiratory secretions. 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 The bronchoalveolar lavage is showing Pseudomonas aeruginosa and the repeat cultures from 03/17/2024 was still positive for Pseudomonas aeruginosa and the sensitivities were noted and the patient remains on IV Zosyn. . The patient is status post tracheostomy tube insertion on 03/05/2024. Due to failure of ongoing mechanical ventilation and mucous plugging, the patient was reintubated on 03/17/2024 and since then the patient remains on the mechanical ventilator. Subsequently, the ET tube was removed and a tracheostomy tube #6 Shiley was inserted. Oxygenating and ventilating adequately. The patient has tolerated pressure support mode of mechanical ventilation over the past 24 hours and the patient is currently on a PSV of 10 and a PEEP of 5. No respiratory difficulties. Respiratory secretions are scant. Tracheal stenosis at the site of the previously inserted tracheostomy tube, visualized on most recent bronchoscopy Previous history of recurrent ventilator dependent respiratory failure, secondary to pneumonia and mucous plugging. The patient has undergone previous bronchoscopies and cultures from bronchoscopy on 12/31/2023 was positive for MRSA and subsequent bronchoscopy on 01/03/2024 was positive for Klebsiella pneumoniae and Bella glabrata. Most recent sputum analysis from 02/26/2024 and 03/17/2024 was positive for Pseudomonas aeruginosa and the patient is cu rrently on IV Zosyn. Sepsis secondary to above, recurrent pneumonia, currently on no pressors Leukocytosis, resolved Crohn's disease, with previous complication of bowel perforation s/p colectomy and diverting ileostomy. The patient also has had previous history of abdominal wall bleeding there is currently inactive and stable. The patient has a high output ileostomy TPN for nutritional support Electrolyte imbalance at time of admission including hyponatremia, hypokalemia, hypophosphatemia, hypomagnesemia and hyperphosphatemia, all resolved Tracheobronchomalacia History of DVT, on therapeutic dose of Lovenox CVA/TIA, with residual left-sided weakness Right BKA History of asystole/cardiac arrest in 2021 Plan: Patient is awake and alert and the patient is off sedation on propofol Discontinue the ventilator and put the patient on a trach collar Continue pulmonary toileting and suctioning as needed Ativan for anxiety Continue IV Zosyn Allow some oral intake along with assistance of speech pathology Continue TPN for nutritional support, the dose and the rate needs to be adjusted by dietary services Monitor his ileostomy output and the patient continues to have high output Continue Lovenox for previous history of DVT, therapeutic dose Critical care evaluation done more than 30 minutes. Time with Patient: Greater than 30
[2024-03-25 12:04] LABS: Glucose,Whole Blood 95 mg/dL (70-110)
[2024-03-25] MEDS ORDERED: [UNRECOGNIZED DRUG - MIXTURE] IV SCH (13:00)
--- NOTE | 2024-03-25 14:05 | P.PN ---
Subjective Progress Note Date: 03/25/24 SURGICAL PROGRESS NOTE CHIEF COMPLAINT: Respiratory failure HISTORY OF PRESENT ILLNESS: Patient remains in ICU. Patient is status post bronchoscopy with insertion of new tracheostomy and removed orotracheal tube by pulmonary service. Patient oxygen saturation is adequate. Patient was transition to trach collar today. Afebrile. PHYSICAL EXAM: VITAL SIGNS: Reviewed. GENERAL: No acute distress HEENT: Tracheostomy site clean dry and intact ASSESSMENT: 1. Acute hypoxic respiratory failure status post new tracheostomy placement during bronchoscopy by pulmonary service 2. History of tracheal stenosis PLAN: -Continue ICU management -Continue supportive care Physician Cyber Security Manager note has been reviewed by physician. Signing provider agrees with the documented findings, assessment, and plan of care. Attestation Patient seen and examined at bedside. Patient placed on trach collar this m orning. Appears to be doing well with this. He is status post bronchoscopy with insertion of new tracheostomy tube. Continue with ICU care and continue with respiratory management. Milton Marrufo, Objective - Vital Signs Vital signs: Vital Signs Temp 98.7 F 03/25/24 08:00 Pulse 104 H 03/25/24 13:00 Resp 22 03/25/24 13:00 BP 108/51 03/25/24 08:00 Pulse Ox 91 L 03/25/24 13:00 FiO2 30 03/25/24 12:00 Intake & Output 03/24/24 03/25/24 03/25/24 18:59 06:59 18:59 Intake Total 4503.606 9451.948 746 Output Total 2050 675 1120 Balance -322.747 715.948 -374 Weight 97.3 kg 97.3 kg Intake: IV 811 958 646 3cc/hr [place] 36 33 21 LR 75cc/hr 525 825 525 Lactated Ringers 1,000 ml 150 @ 75 mls/hr IV .[id number] [facility] Rx#:[id number] Piperacillin-Tazobactam 3 100 100 100 .375 gm In Sodium Chloride 0.9% 100 ml @ 25 mls/hr IVPB Q8HR [facility] Rx# :[id number] Intake, IV Titration 916.253 432.948 100 Amount Mvi, Adult No.4 with Vit 779.5 K 10 ml Trace (Conc-1Ml/ Dose) 1 ml Sodium Chloride 4Meq/ml Vial 100 meq Potassium Acetate 60 meq Calcium Gluconate 1 gm Magnesium Sulfate gm 1 .5 gm Sodium Phosphate 21 mmol Sodium Acetate 60 meq In Amino Acids 5 %/ Dextrose 20 % 1,000 ml @ 30 mls/hr IV .Q24H [facility] Rx #:[id number] Norepinephrine 4 mg In 99.329 92.414 Sodium Chloride 0.9% 250 ml @ 0.03 MCG/KG/MIN 11. 316 mls/hr IV .[id number] [facility] Rx#:[id number] Potassium Chloride 20 meq 300 100 In Water For Injection 1 100ml.bag @ 50 mls/hr IVPB ONCE ONE Rx#: [id number] propofoL 1,000 mg In 37.424 40.534 Empty Bag 1 bag @ 15 MCG/ KG/MIN 8.235 mls/hr IV . Q12H9M [facility] Rx#:[id number] Output: Urine 1200 675 320 Stool 850 800 Other: Voiding Method Indwelling Catheter Indwelling Catheter Indwelling Catheter ABP, PAP, CO, CI - Last Documented Arterial Blood Pressure 142/61 - Labs CBC & Chem 7: 03/25/24 03:09 03/25/24 03:09 Labs: Abnormal Lab Results - Last 24 Hours (Table) 03/25/24 03/25/24 03/25/24 Range/Units 03:09 03:09 04:45 RBC 3.30 L (4.30-5.90) m/uL Hgb 8.1 L (13.0-17.5) gm/dL Hct 27.7 L (39.0-53.0) % MCH 24.5 L (25.0-35.0) pg MCHC 29.1 L (31.0-37.0) g/dL RDW 16.0 H (11.5-15.5) % Lymphocytes # 0.7 L (1.0-4.8) k/uL ABG Total CO2 27 H (19-24) mmol/L ABG O2 Saturation 98.8 H (94-97) % Hemoglobin 7.8 L (13.0-17.5) gm/dL Chloride 111 H (98-107) mmol/L BUN 6 L (9-20) mg/dL Creatinine 0.44 L (0.66-1.25) mg/dL Calcium 8.3 L (8.4-10.2) mg/dL
[2024-03-25 18:21] LABS: Glucose,Whole Blood 88 mg/dL (70-110)
[2024-03-25] MEDS: [UNRECOGNIZED DRUG - MIXTURE] IV SCH (23:34)
[2024-03-25 23:43] LABS: Glucose,Whole Blood 83 mg/dL (70-110)
[2024-03-26] MEDS: IPRATROPIUM-ALBUTEROL 3 ML NEB INHALATION PRN (04:07)
[2024-03-26 04:50] LABS: Basophils % (A) 0 %; Eosinophils % (A) 1 %; HCT 29.8 % (39.0-53.0); HGB 8.4 gm/dL (13.0-17.5); Hypochromasia Marked; Lymphocytes % (A) 19 %; MCHC 28.2 g/dL (31.0-37.0); MCV 85.2 fL (80.0-100.0); Mean Platelet Volume 10.3; Monocytes # (A) 0.2 k/uL (0-1.0); Monocytes % (A) 4 %; Neutrophils # (A) 4.1 k/uL (1.3-7.7); Neutrophils % (A) 76 %; Platelet Count 218 k/uL (150-450); Poikilocytosis Slight; RDW 15.9 % (11.5-15.5); WBC 5.5 k/uL (3.8-10.6)
[2024-03-26 05:13] LABS: ALT 25 U/L (4-49); AST 23 U/L (17-59); African American GFR (CKD) >90 (>60 ml/min/1.73 sqM); Albumin 2.8 g/dL (3.5-5.0); Alkaline Phosphatase 68 U/L (38-126); Anion Gap 2 mmol/L; Blood Urea Nitrogen 7 mg/dL (9-20); Calcium 8.4 mg/dL (8.4-10.2); Carbon Dioxide 29 mmol/L (22-30); Chloride 108 mmol/L (98-107); Glucose 114 mg/dL (74-99); Magnesium 2.1 mg/dL (1.6-2.3); Non-African American GFR(CKD) >90 (>60 ml/min/1.73 sqM); Phosphorus 2.5 mg/dL (2.5-4.5); Potassium 3.9 mmol/L (3.5-5.1); Sodium 139 mmol/L (137-145); Total Bilirubin 0.3 mg/dL (0.2-1.3); Total Protein 6.4 g/dL (6.3-8.2)
[2024-03-26 06:23] LABS: Glucose,Whole Blood 115 mg/dL (70-110)
[2024-03-26] MEDS ORDERED: Potassium Replacement Protocol 1 EACH MISC MISCELLANE PRN (06:24)
[2024-03-26] MEDS: FUROSEMIDE 10 MG/ML 4 ML VIAL IV STA (06:32)
[2024-03-26] MEDS: POTASSIUM CHLORIDE 10 MEQ in WATER FOR INJECTION 1 100ML.BAG IVPB SCH (06:32)
--- NOTE | 2024-03-26 06:34 | P.PN ---
Subjective Progress Note Date: 03/25/24 Patient is eval today in the intensive care unit. Patient remains intubated and on mechanical ventilator. Tracheostomy has dressing over it. No plans for transfer at this time he was denied at of in [facility] secondary to wait list for transfer. Additionally multiple other hospitals have refused transfer. Surgery with plans for extra long trach insertion. Patient states that he is having generalized pain and also significant discomfort in his throat IV Dilaudid was increased to every 2 hours. He remains on IV Solu-Cortef. He remains on TPN lipids. Patient is been off of vasopressor support. He continues on IV Zosyn. Chest x-ray today reveals bibasilar opacities favor atelectasis. He remains afebrile. 03/22/2024 Patient evaluated in follow-up in intensive care unit with family at the bedside. He is agitated today he does state that his throat is hurting still. Pending follow-up from general surgery with further recommendations for an extra long trach insertion. He remains on the mechanical ventilator at this time. Continues on TPN and lipids. Remains on IV Zosyn. Chest x-ray today reveals bibasilar acute infiltrates and tiny bilateral pleural effusions. Potassium 3.5 03/23/2024 Patient seen in follow-up with multiple consultations following. Pulmonary will be performing a bronchoscopy and further evaluation of this tracheal stenosis. Attempted multiple tertiary centers for transfer and patient was denied transfers. Patient currently maintained on mechanical ventilation and will await official pulmonary report. 03/24/2024 Patient seen follow-up today continues to be in the ICU with multiple consultations following. Patient remains on IV antibiotics with infectious disease following for pseudomonal infection will continue on Zosyn. Patient also continues on TPN and has been n.p.o. since reintubation. Yesterday patient underwent bronchoscopy with pulmonary turf farmer with removal of oral tracheal tube and placement of extra long #6 Shiley tracheostomy tube. Patient is on assist mode and tolerating. Blood pressure is on the lower side requiring low- dose Levophed and is continued on low-dose propofol. Wean off propofol and continue with Ativan as needed along with pain medications. Patient continues to have significant amounts of pain at the tracheal site and is maintained on Dilaudid along with oral What Cheer and Toradol. Not much adjusting as blood pressures are soft although will attempt to control pain better. Will need to discuss further with consultations regarding discharge planning with case management/social work following if there is a discharge plan to [facility]. Patient will require extensive wound care as well as IV antibiotic therapy and frequent respiratory care including frequent suctioning. Patient not quite ready as of yet. Patient asking if he can eat again and will reconsult speech for evaluation. 03/25/2024 Patient is seen in follow-up today continues to report pain and requiring frequent suctioning. Not able to adjust pain meds further as patient is taking 1 mg of Dilaudid every 2 hours and also has What Cheer but per nursing staff patient is refusing that. Patient reports pain is at the tracheostomy site. Oxygenation is adequate maintained on trach and ventilation. Propofol has been discontinued as patient was using this and still completely awake and alert. Patient is afebrile with no reports of chest pain. Ostomy continues to be functioning with multiple amounts of loose stool. This is chronic. Patient is also continued on TPN and will continue at this time. Case management/social work following and will discuss further regarding discharge planning. Awaiting speech evaluation Review of Systems Constitutional: Denied any fatigue denied any fever. Cardio vascular: denied any chest pain, palpitations Gastrointestinal: denied any nausea, vomiting, diarrhea, reports to feeling hun gry and requesting to eat Pulmonary: Denied any shortness of breath, reports cough, reports sore throat and pain at the trach site along with increased secretions Neurologic denied any new focal deficits All inpatient medications were reviewed and appropriate changes in these medications as dictated in the interval history and assessment and plan. PHYSICAL EXAMINATION: GENERAL: The patient is awake, alert and oriented x3, not in any acute distress. Mildly anxious. Well developed, well nourished. Assist mode on the vent via tracheostomy. HEENT: Pupils are round and equally reacting to light. EOMI. No scleral icterus. No conjunctival pallor. Normocephalic, atraumatic. No pharyngeal erythema. No thyromegaly. CARDIOVASCULAR: S1 and S2 present. No murmurs, rubs, or gallops. PULMONARY: Chest is clear to auscultation, no wheezing or crackles. Bronchial congestion noted ABDOMEN: Soft, nontender, nondistended, normoactive bowel sounds. No palpable organomegaly. Central abdominal wound with similar to colostomy bag in place connected to fecal management system MUSCULOSKELETAL: No joint swelling or deformity. EXTREMITIES: No cyanosis, clubbing, or pedal edema. Bilateral upper and lower extremity swelling with muscle wasting also noted NEUROLOGICAL: Gross neurological examination did not reveal any focal deficits. Diffuse weakness. Contractures on hands bilaterally. SKIN: No rashes. 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 Patient was transferred back on 03/17 for increased hypoxia and respiratory distress Continue on Zosyn. ID team on the case for continued pseudomonal infection. Multiple attempts to transfer the patient to tertiary care center, [facility] Some other options include [facility] and [facility] who had full capacity in the last few days that this might change later. No plans of transfer at this time Pulmonary turf farmer following and patient underwent bronchoscopy with extra long placement #6 Shiley cannula tracheostomy with oral tracheostomy removed Patient is requesting to eat and will reconsult speech for evaluation as patient is currently n.p.o. from previous recent intubation. Continue with TPN Continue with IV hydrocortisone 50 mg 3 times daily Continue therapeutic dose of Lovenox 80 mg twice daily. Due to multiple complex medical issues, overall prognosis is guarded Will need to discuss further with turf farmer along with case management/social work regarding discharge planning. The impression and plan of care has been dictated by Alyssa Hernandez Nurse Pr actitioner as directed. Dr. Mo MD I have performed a history and physical examination and medical decision making of this patient, discussed the same with the dictator, and agree with the dicta tors assessment and plan as written, documented as a scribe. Based on total visit time, I have performed more than 50% of this visit. Plan Objective - Vital Signs Vital signs: Vital Signs Temp 98.0 F 03/26/24 00:00 Pulse 81 03/26/24 04:13 Resp 20 03/26/24 04:13 BP 105/56 03/26/24 02:00 Pulse Ox 95 03/26/24 04:09 FiO2 40 03/26/24 04:09 Intake & Output 03/25/24 03/25/24 03/26/24 06:59 18:59 06:59 Intake Total 9957.768 4936 1109 Output Total 675 1505 500 Balance 715.948 -369 609 Weight 97.3 kg 97.3 kg 104.1 kg Intake: IV 958 1036 1109 0.9% NS KVO 20 3cc/hr Lor[place] 33 36 24 LR 75cc/hr 825 900 600 Mvi, Adult No.4 with Vit 90 K 10 ml Trace (Conc-1Ml/ Dose) 1 ml Sodium Chloride 4Meq/ml Vial 100 meq Potassium Acetate 60 meq Calcium Gluconate 1 gm Magnesium Sulfate gm 1 .5 gm Sodium Phosphate 21 mmol Sodium Acetate 60 meq In Amino Acids 5 %/ Dextrose 20 % 1,000 ml @ 30 mls/hr IV .Q24H [facility] Rx #:[id number] Mvi, Adult No.4 with Vit 300 K 10 ml Trace (Conc-1Ml/ Dose) 1 ml Sodium Chloride 4Meq/ml Vial 20 meq Potassium Acetate 40 meq Calcium Gluconate 1 gm Magnesium Sulfate gm 0 .5 gm Sodium Phosphate 15 mmol Sodium Acetate 60 meq In Amino Acids 5 %/ Dextrose 20 % 1,000 ml @ 75 mls/hr IV .BY DURATION [facility] Rx#:[id number] Piperacillin-Tazobactam 3 100 100 75 .375 gm In Sodium Chloride 0.9% 100 ml @ 25 mls/hr IVPB Q8HR [facility] Rx# :[id number] Intake, IV Titration 432.948 100 Amount Norepinephrine 4 mg In 92.414 Sodium Chloride 0.9% 250 ml @ 0.03 MCG/KG/MIN 11. 316 mls/hr IV .[id number] [facility] Rx#:[id number] Potassium Chloride 20 meq 300 100 In Water For Injection 1 100ml.bag @ 50 mls/hr IVPB ONCE ONE Rx#: [id number] propofoL 1,000 mg In 40.534 Empty Bag 1 bag @ 15 MCG/ KG/MIN 8.235 mls/hr IV . Q12H9M [facility] Rx#:[id number] Output: Urine 675 705 500 Stool 800 Other: Voiding Method Indwelling Catheter Indwelling Catheter Indwelling Catheter ABP, PAP, CO, CI - Last Documented Arterial Blood Pressure 147/68 - Labs CBC & Chem 7: 03/26/24 04:30 03/26/24 04:30 Labs: Abnormal Lab Results - Last 24 Hours (Table) 03/26/24 03/26/24 03/26/24 Range/Units 04:30 04:30 06:22 RBC 3.50 L (4.30-5.90) m/uL Hgb 8.4 L (13.0-17.5) gm/dL Hct 29.8 L (39.0-53.0) % MCH 24.0 L (25.0-35.0) pg MCHC 28.2 L (31.0-37.0) g/dL RDW 15.9 H (11.5-15.5) % Chloride 108 H (98-107) mmol/L BUN 7 L (9-20) mg/dL Creatinine 0.41 L (0.66-1.25) mg/dL Glucose 114 H (74-99) mg/dL POC Glucose (mg/dL) 115 H (70-110) mg/dL Albumin 2.8 L (3.5-5.0) g/dL
--- NOTE | 2024-03-26 08:08 | XR ---
EXAMINATION TYPE: XR chest 1V portable DATE OF EXAM: 03/26/2024 CLINICAL HISTORY: Difficulty breathing progress study. TECHNIQUE: Single AP portable semiupright view of the chest is obtained. COMPARISON: Chest x-ray from one day earlier and older studies. FINDINGS: Stable tracheostomy tube. Stable Left-sided central venous catheter. Persistent left basilar opacity. Worsening right lung opacity. Cardiomegaly is redemonstrated. Surgic al clips in the right lower neck are redemonstrated. Osseous structures are intact. Cholecystectomy c lips are noted. IMPRESSION: Worsening right lung opacity suggests compression of right-sided pleural effusion and rig ht lung consolidation/atelectasis. [facility], , 03/26/2024 8:06 AM
--- NOTE | 2024-03-26 11:02 | FL ---
Exam Date: 03/26/2024 10:34 AM. Modified barium swallow for dysphagia. Consistencies administered: Various consistency of barium. Fluoro time: 1 min 15 sec No images were sent to PACS. Please see speech pathology report. DAP: 165.82 mGym2 Gycm2 [facility], , 03/26/2024 10:59 AM
[2024-03-26 11:22] LABS: Glucose,Whole Blood 114 mg/dL (70-110)
--- NOTE | 2024-03-26 11:50 | P.PN ---
Subjective Progress Note Date: 03/26/24 SURGICAL PROGRESS NOTE CHIEF COMPLAINT: Respiratory failure HISTORY OF PRESENT ILLNESS: Patient remains in ICU. Patient is status post bronchoscopy with insertion of new tracheostomy and removed orotracheal tube by pulmonary service on 03/23/24. Patient oxygen saturation is adequate. On trach collar. Patient had MBS study and passed. They are transitioning him to a regular diet. PHYSICAL EXAM: VITAL SIGNS: Reviewed. GENERAL: No acute distress HEENT: Tracheostomy site clean dry and intact ASSESSMENT: 1. Acute hypoxic respiratory failure status post new tracheostomy placement during bronchoscopy by pulmonary service 2. History of tracheal stenosis PLAN: -Continue ICU management -Continue supportive care Physician Pumper Gauger note has been reviewed by physician. Signing provider agrees with the documented findings, assessment, and plan of care. Attestation Patient seen and examined at bedside. Appears to be tolerating tracheostomy. Had MBS study in past. On trach collar. Transitioning to regular diet. No further surgical intervention planned planned. Please call surgical service for any reevaluation should the patient have any change in clinical progress. Milton Marrufo, Objective - Vital Signs Vital signs: Vital Signs Temp 98.4 F 03/26/24 11:00 Pulse 79 03/26/24 11:00 Resp 26 H 03/26/24 11:00 BP 114/61 03/26/24 08:00 Pulse Ox 95 03/26/24 11:00 FiO2 35 03/26/24 11:00 Intake & Output 03/25/24 03/26/24 03/26/24 18:59 06:59 18:59 Intake Total 1136 1761 475 Output Total 0482 111 2999 Balance -369 946 -7106 Weight 97.3 kg 104.1 kg Intake: IV 1036 1761 475 0.9% NS KVO 35 25 3cc/hr [place] 36 36 15 LR 75cc/hr 900 900 210 Mvi, Adult No.4 with Vit 90 K 10 ml Trace (Conc-1Ml/ Dose) 1 ml Sodium Chloride 4Meq/ml Vial 100 meq Potassium Acetate 60 meq Calcium Gluconate 1 gm Magnesium Sulfate gm 1 .5 gm Sodium Phosphate 21 mmol Sodium Acetate 60 meq In Amino Acids 5 %/ Dextrose 20 % 1,000 ml @ 30 mls/hr IV .Q24H [facility] Rx #:[id number] Mvi, Adult No.4 with Vit 600 225 K 10 ml Trace (Conc-1Ml/ Dose) 1 ml Sodium Chloride 4Meq/ml Vial 20 meq Potassium Acetate 40 meq Calcium Gluconate 1 gm Magnesium Sulfate gm 0 .5 gm Sodium Phosphate 15 mmol Sodium Acetate 60 meq In Amino Acids 5 %/ Dextrose 20 % 1,000 ml @ 75 mls/hr IV .BY DURATION [facility] Rx#:[id number] Piperacillin-Tazobactam 3 100 100 .375 gm In Sodium Chloride 0.9% 100 ml @ 25 mls/hr IVPB Q8HR [facility] Rx# :[id number] Intake, IV Titration 100 Amount Potassium Chloride 20 meq 100 In Water For Injection 1 100ml.bag @ 50 mls/hr IVPB ONCE ONE Rx#: [id number] Output: Urine 647 743 2695 Stool 800 700 Other: Voiding Method Indwelling Catheter Indwelling Catheter Indwelling Catheter ABP, PAP, CO, CI - Last Documented Arterial Blood Pressure 141/64 - Labs CBC & Chem 7: 03/26/24 04:30 03/26/24 04:30 Labs: Abnormal Lab Results - Last 24 Hours (Table) 03/26/24 03/26/24 03/26/24 Range/Units 04:30 04:30 06:22 RBC 3.50 L (4.30-5.90) m/uL Hgb 8.4 L (13.0-17.5) gm/dL Hct 29.8 L (39.0-53.0) % MCH 24.0 L (25.0-35.0) pg MCHC 28.2 L (31.0-37.0) g/dL RDW 15.9 H (11.5-15.5) % Chloride 108 H (98-107) mmol/L BUN 7 L (9-20) mg/dL Creatinine 0.41 L (0.66-1.25) mg/dL Glucose 114 H (74-99) mg/dL POC Glucose (mg/dL) 115 H (70-110) mg/dL Albumin 2.8 L (3.5-5.0) g/dL 03/26/24 Range/Units 11:20 RBC (4.30-5.90) m/uL Hgb (13.0-17.5) gm/dL Hct (39.0-53.0) % MCH (25.0-35.0) pg MCHC (31.0-37.0) g/dL RDW (11.5-15.5) % Chloride (98-107) mmol/L BUN (9-20) mg/dL Creatinine (0.66-1.25) mg/dL Glucose (74-99) mg/dL POC Glucose (mg/dL) 114 H (70-110) mg/dL Albumin (3.5-5.0) g/dL
--- NOTE | 2024-03-26 13:12 | P.PN ---
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 Tracheostomy has been removed the patient has been intubated and transferred back to the ICU. Patient is status post tracheostomy procedure completed on 03/23/2024. On today's evaluation that is 03/24/2023, Patient is afebrile this morning patient is currently breathing comfortably on all the vent through the trach is trying to communicate no distress or bradycardia changes reported not requiring any pressor support Patient white count is 5.2 creatinine 0.48 Objective - Vital Signs Vital signs: Vital Signs Temp 98.4 F 03/24/24 11:00 Pulse 64 03/24/24 12:39 Resp 28 H 03/24/24 11:00 BP 108/51 03/24/24 07:15 Pulse Ox 96 03/24/24 11:00 FiO2 30 03/24/24 15:29 Intake & Output 03/23/24 03/24/24 03/24/24 18:59 06:59 18:59 Intake Total 7502.377 7185.788 301.753 Output Total 1625 1705 475 Balance -80.372 -475.212 -173.247 Weight 99 kg 96.3 kg Intake: IV 1083 936 165 3cc/hr Lor[place] 33 36 15 Lactated Ringers 1,000 ml 825 900 150 @ 75 mls/hr IV .[id number] [facility] Rx#:[id number] Piperacillin-Tazobactam 3 225 .375 gm In Sodium Chloride 0.9% 100 ml @ 25 mls/hr IVPB Q8HR [facility] Rx# :[id number] Intake, IV Titration 461.628 293.788 136.753 Amount Mvi, Adult No.4 with Vit 60 K 10 ml Trace (Conc-1Ml/ Dose) 1 ml Sodium Chloride 4Meq/ml Vial 140 meq Potassium Acetate 60 meq Calcium Gluconate 1 gm Magnesium Sulfate gm 1 .5 gm Sodium Phosphate 21 mmol In Amino Acids 5 %/ Dextrose 20 % 1,000 ml @ 30 mls/hr IV .Q24H [facility] Rx #:[id number] Norepinephrine 4 mg In 8.298 99.329 Sodium Chloride 0.9% 250 ml @ 0.03 MCG/KG/MIN 11. 316 mls/hr IV .[id number] [facility] Rx#:[id number] propofoL 1,000 mg In 393.330 293.788 37.424 Empty Bag 1 bag @ 15 MCG/ KG/MIN 8.235 mls/hr IV . Q12H9M [facility] Rx#:[id number] Output: Urine 725 1105 475 Stool 900 600 Other: Voiding Method Indwelling Catheter Indwelling Catheter ABP, PAP, CO, CI - Last Documented Arterial Blood Pressure 109/41 - Exam GENERAL DESCRIPTION: Middle-age man intubated through the trach RESPIRATORY SYSTEM: Unlabored breathing , decreased intensity of breath sounds HEART: S1 S2 regular rate and rhythm , ABDOMEN: Soft , no tenderness - Labs CBC & Chem 7: 03/26/24 04:30 03/26/24 04:30 Labs: Abnormal Lab Results - Last 24 Hours (Table) 03/23/24 03/24/24 03/24/24 Range/Units 23:19 04:40 05:35 RBC (4.30-5.90) m/uL Hgb (13.0-17.5) gm/dL Hct (39.0-53.0) % MCH (25.0-35.0) pg MCHC (31.0-37.0) g/dL RDW (11.5-15.5) % ABG pH 7.52 H (7.35-7.45) ABG pCO2 29 L (35-45) mmHg ABG O2 Saturation 98.1 H (94-97) % Hemoglobin 8.0 L (13.0-17.5) gm/dL Sodium 136 L (137-145) mmol/L Potassium 3.4 L (3.5-5.1) mmol/L Carbon Dioxide 19 L (22-30) mmol/L Creatinine 0.48 L (0.66-1.25) mg/dL POC Glucose (mg/dL) 111 H (70-110) mg/dL Calcium 8.3 L (8.4-10.2) mg/dL 03/24/24 Range/Units 05:35 RBC 3.15 L (4.30-5.90) m/uL Hgb 7.8 L (13.0-17.5) gm/dL Hct 25.8 L (39.0-53.0) % MCH 24.7 L (25.0-35.0) pg MCHC 30.2 L (31.0-37.0) g/dL RDW 16.3 H (11.5-15.5) % ABG pH (7.35-7.45) ABG pCO2 (35-45) mmHg ABG O2 Saturation (94-97) % Hemoglobin (13.0-17.5) gm/dL Sodium (137-145) mmol/L Potassium (3.5-5.1) mmol/L Carbon Dioxide (22-30) mmol/L Creatinine (0.66-1.25) mg/dL POC Glucose (mg/dL) (70-110) mg/dL Calcium (8.4-10.2) mg/dL Assessment and Plan (1) Pneumonia Current Visit: No Status: Acute Code(s): J18.9 - PNEUMONIA, UNSPECIFIED ORGANISM SNOMED Code(s): 612478194 (2) Sepsis Current Visit: No Status: Acute Code(s): A41.9 - SEPSIS, UNSPECIFIED ORGANISM SNOMED Code(s): 50987420 Plan: 1patient presented to hospital with sepsis in this patient who did have a low- grade fever elevated white count tachycardia meeting criteria for SIRS source likely pneumonia at this patient presenting with increasing shortness of breath cough with evidence of right-sided infiltrate, patient has been admitted to the hospital and will need to cover for resistant gram-positive as well as gram- negative 2-patient is status post bronchoscopy and lavage completed on 03/02/2024 cultures currently growing Pseudomonas that is resistant to cefepime, with repeat bronchoscopy on 03/17/2024 and grew Pseudomonas again sensitive to Zosyn 3-patient remains to be afebrile white count has been normal, status post repeat tracheostomy procedure on 03/23/2023, 4-patient is currently being treated with Zosyn and monitor clinical course closely Dictation was produced using [employer] dictation software. please excuse any grammatical, word or spelling errors. Time with Patient: Less than 30
--- NOTE | 2024-03-26 13:17 | P.PN ---
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 Tracheostomy has been removed the patient has been intubated and transferred back to the ICU. Patient is status post tracheostomy procedure completed on 03/23/2024. On today's evaluation that is 03/25/2024,the patient continues to be afebrile patient remains to be debated on the vent through the trach seems to be breathing comfortably trying to communicate as a need to be suctioned out no vomiting diarrhea any changes reported by the nursing staff. Patient white cells 5.1, creatinine 0.44 Objective - Vital Signs Vital signs: Vital Signs Temp 98.7 F 03/25/24 08:00 Pulse 94 03/25/24 11:00 Resp 25 H 03/25/24 11:00 BP 108/51 03/25/24 08:00 Pulse Ox 91 L 03/25/24 11:00 FiO2 40 03/25/24 09:20 Intake & Output 03/24/24 03/25/24 03/25/24 18:59 06:59 18:59 Intake Total 8340.643 6352.948 668 Output Total 2050 675 1060 Balance -322.747 715.948 -392 Weight 97.3 kg Intake: IV 811 958 568 3cc/hr [place] 36 33 18 LR 75cc/hr 525 825 450 Lactated Ringers 1,000 ml 150 @ 75 mls/hr IV .[id number] [facility] Rx#:[id number] Piperacillin-Tazobactam 3 100 100 100 .375 gm In Sodium Chloride 0.9% 100 ml @ 25 mls/hr IVPB Q8HR [facility] Rx# :[id number] Intake, IV Titration 916.253 432.948 100 Amount Mvi, Adult No.4 with Vit 779.5 K 10 ml Trace (Conc-1Ml/ Dose) 1 ml Sodium Chloride 4Meq/ml Vial 100 meq Potassium Acetate 60 meq Calcium Gluconate 1 gm Magnesium Sulfate gm 1 .5 gm Sodium Phosphate 21 mmol Sodium Acetate 60 meq In Amino Acids 5 %/ Dextrose 20 % 1,000 ml @ 30 mls/hr IV .Q24H [facility] Rx #:[id number] Norepinephrine 4 mg In 99.329 92.414 Sodium Chloride 0.9% 250 ml @ 0.03 MCG/KG/MIN 11. 316 mls/hr IV .[id number] [facility] Rx#:[id number] Potassium Chloride 20 meq 300 100 In Water For Injection 1 100ml.bag @ 50 mls/hr IVPB ONCE ONE Rx#: [id number] propofoL 1,000 mg In 37.424 40.534 Empty Bag 1 bag @ 15 MCG/ KG/MIN 8.235 mls/hr IV . Q12H9M [facility] Rx#:[id number] Output: Urine 1200 675 260 Stool 850 800 Other: Voiding Method Indwelling Catheter Indwelling Catheter Indwelling Catheter ABP, PAP, CO, CI - Last Documented Arterial Blood Pressure 107/93 - Exam GENERAL DESCRIPTION: Middle-age man intubated through the trach RESPIRATORY SYSTEM: Unlabored breathing , decreased intensity of breath sounds HEART: S1 S2 regular rate and rhythm , ABDOMEN: Soft , no tenderness - Labs CBC & Chem 7: 03/26/24 04:30 03/26/24 04:30 Labs: Abnormal Lab Results - Last 24 Hours (Table) 03/25/24 03/25/24 03/25/24 Range/Units 03:09 03:09 04:45 RBC 3.30 L (4.30-5.90) m/uL Hgb 8.1 L (13.0-17.5) gm/dL Hct 27.7 L (39.0-53.0) % MCH 24.5 L (25.0-35.0) pg MCHC 29.1 L (31.0-37.0) g/dL RDW 16.0 H (11.5-15.5) % Lymphocytes # 0.7 L (1.0-4.8) k/uL ABG Total CO2 27 H (19-24) mmol/L ABG O2 Saturation 98.8 H (94-97) % Hemoglobin 7.8 L (13.0-17.5) gm/dL Chloride 111 H (98-107) mmol/L BUN 6 L (9-20) mg/dL Creatinine 0.44 L (0.66-1.25) mg/dL Calcium 8.3 L (8.4-10.2) mg/dL Assessment and Plan (1) Pneumonia Current Visit: No Status: Acute Code(s): J18.9 - PNEUMONIA, UNSPECIFIED ORGANISM SNOMED Code(s): 622114706 (2) Sepsis Current Visit: No Status: Acute Code(s): A41.9 - SEPSIS, UNSPECIFIED ORGANISM SNOMED Code(s): 89335072 Plan: 1patient presented to hospital with sepsis in this patient who did have a low- grade fever elevated white count tachycardia meeting criteria for SIRS source likely pneumonia at this patient presenting with increasing shortness of breath cough with evidence of right-sided infiltrate, patient has been admitted to the hospital and will need to cover for resistant gram-positive as well as gram-neg ative 2-patient is status post bronchoscopy and lavage completed on 03/02/2024 cultures currently growing Pseudomonas that is resistant to cefepime, with repeat bronchoscopy on 03/17/2024 and grew Pseudomonas again sensitive to Zosyn 3-patient remains to be afebrile white count has been normal, status post repeat tracheostomy procedure on 03/23/2023, 4-patient has received adequate Zosyn and will not need any IV antibiotics on discharge Dictation was produced using [employer] dictation software. please excuse any grammatical, word or spelling errors. Time with Patient: Less than 30
--- NOTE | 2024-03-26 13:18 | P.PN ---
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 Tracheostomy has been removed the patient has been intubated and transferred back to the ICU. Patient is status post tracheostomy procedure completed on 03/23/2024. On today's evaluation that is 03/26/2024,the patient remains to be afebrile, patient is on trach collar FiO2 35% and mention breathing comfortably no chest pain or worsening cough patient to start feeding has been tolerating it so far without any choking. Patient white count is 5.5 creatinine 0.41 Objective - Vital Signs Vital signs: Vital Signs Temp 98.4 F 03/26/24 11:00 Pulse 84 03/26/24 12:00 Resp 19 03/26/24 12:00 BP 114/61 03/26/24 08:00 Pulse Ox 98 03/26/24 12:00 FiO2 35 03/26/24 11:00 Intake & Output 03/25/24 03/26/24 03/26/24 18:59 06:59 18:59 Intake Total 1136 1761 828 Output Total 0453 659 4598 Balance -369 946 -2972 Weight 97.3 kg 104.1 kg Intake: IV 1036 1761 578 0.9% NS KVO 35 30 3cc/hr [place] 36 36 18 LR 75cc/hr 900 900 230 Mvi, Adult No.4 with Vit 90 K 10 ml Trace (Conc-1Ml/ Dose) 1 ml Sodium Chloride 4Meq/ml Vial 100 meq Potassium Acetate 60 meq Calcium Gluconate 1 gm Magnesium Sulfate gm 1 .5 gm Sodium Phosphate 21 mmol Sodium Acetate 60 meq In Amino Acids 5 %/ Dextrose 20 % 1,000 ml @ 30 mls/hr IV .Q24H [facility] Rx #:[id number] Mvi, Adult No.4 with Vit 600 300 K 10 ml Trace (Conc-1Ml/ Dose) 1 ml Sodium Chloride 4Meq/ml Vial 20 meq Potassium Acetate 40 meq Calcium Gluconate 1 gm Magnesium Sulfate gm 0 .5 gm Sodium Phosphate 15 mmol Sodium Acetate 60 meq In Amino Acids 5 %/ Dextrose 20 % 1,000 ml @ 75 mls/hr IV .BY DURATION [facility] Rx#:[id number] Piperacillin-Tazobactam 3 100 100 .375 gm In Sodium Chloride 0.9% 100 ml @ 25 mls/hr IVPB Q8HR [facility] Rx# :[id number] Intake, IV Titration 100 Amount Potassium Chloride 20 meq 100 In Water For Injection 1 100ml.bag @ 50 mls/hr IVPB ONCE ONE Rx#: [id number] Oral 250 Output: Urine 422 688 9000 Stool 800 1300 Other: Voiding Method Indwelling Catheter Indwelling Catheter Indwelling Catheter ABP, PAP, CO, CI - Last Documented Arterial Blood Pressure 167/77 - Exam GENERAL DESCRIPTION: Middle-age man intubated through the trach RESPIRATORY SYSTEM: Unlabored breathing , decreased intensity of breath sounds HEART: S1 S2 regular rate and rhythm , ABDOMEN: Soft , no tenderness - Labs CBC & Chem 7: 03/26/24 04:30 03/26/24 04:30 Labs: Abnormal Lab Results - Last 24 Hours (Table) 03/26/24 03/26/24 03/26/24 Range/Units 04:30 04:30 06:22 RBC 3.50 L (4.30-5.90) m/uL Hgb 8.4 L (13.0-17.5) gm/dL Hct 29.8 L (39.0-53.0) % MCH 24.0 L (25.0-35.0) pg MCHC 28.2 L (31.0-37.0) g/dL RDW 15.9 H (11.5-15.5) % Chloride 108 H (98-107) mmol/L BUN 7 L (9-20) mg/dL Creatinine 0.41 L (0.66-1.25) mg/dL Glucose 114 H (74-99) mg/dL POC Glucose (mg/dL) 115 H (70-110) mg/dL Albumin 2.8 L (3.5-5.0) g/dL 03/26/24 Range/Units 11:20 RBC (4.30-5.90) m/uL Hgb (13.0-17.5) gm/dL Hct (39.0-53.0) % MCH (25.0-35.0) pg MCHC (31.0-37.0) g/dL RDW (11.5-15.5) % Chloride (98-107) mmol/L BUN (9-20) mg/dL Creatinine (0.66-1.25) mg/dL Glucose (74-99) mg/dL POC Glucose (mg/dL) 114 H (70-110) mg/dL Albumin (3.5-5.0) g/dL Assessment and Plan (1) Pneumonia Current Visit: No Status: Acute Code(s): J18.9 - PNEUMONIA, UNSPECIFIED ORGANISM SNOMED Code(s): 737207614 (2) Sepsis Current Visit: No Status: Acute Code(s): A41.9 - SEPSIS, UNSPECIFIED ORGANISM SNOMED Code(s): 65129446 Plan: 1patient presented to hospital with sepsis in this patient who did have a low- grade fever elevated white count tachycardia meeting criteria for SIRS source likely pneumonia at this patient presenting with increasing shortness of breath cough with evidence of right-sided infiltrate, patient has been admitted to the hospital and will need to cover for resistant gram-positive as well as gram- negative 2-patient is status post bronchoscopy and lavage completed on 03/02/2024 cultures currently growing Pseudomonas that is resistant to cefepime, with repeat bronchoscopy on 03/17/2024 and grew Pseudomonas again sensitive to Zosyn 3-patient remains to be afebrile white count has been normal, status post repeat tracheostomy procedure on 03/23/2023, 4-patient has received adequate Zosyn and plan was to discontinue however patient was to have worsening right lower lobe opacity question of fluid versus atelectasis will discuss further with pulmonary before discontinuation of the Zosyn Dictation was produced using [employer] dictation software. please excuse any grammatical, word or spelling errors. Time with Patient: Less than 30
--- NOTE | 2024-03-26 14:23 | P.PN ---
Subjective Progress Note Date: 03/26/24 On 03/23/2024, the patient is being seen for a follow-up. The patient remains intubated on the mechanical ventilator. The patient is well-known to me. The patient has history of acute on top of chronic hypoxic and hypercapnic respiratory failure and he required intubation on 02/26/2024. He does have chr onic respiratory insufficiency due to poor ability to perform pulmonary toileting and a weak cough and he has developed recurrent pneumonias with gram- negative and MRSA. Note that sputum samples from 02/26/2024 were positive for Pseudomonas aeruginosa. The patient required intubation mechanical ventilation initially on 02/26/2024. He required several bronchoscopies that showed purulent respiratory secretions and mucous plugging contributing to his respiratory failure. My recommendation at that time was to proceed with tracheostomy . Tracheostomy tube insertion that was inserted on 03/05/2024 and the patient was weaned off the mechanical ventilator. He also has a component of tracheal stenosis and this is a site of the previously tracheostomy tube. Subsequently, the patient got released out of the intensive care unit to be readmitted back to the intensive care unit as a rapid response team was called on this patient for increased respiratory distress. The patient was receiving b ag valve mask ventilation and he was still hypoxic. At that point, the decision by Dr. Munoz was made to wean the patient orally and the tracheostomy tube was removed and the patient was connected back to the mechanical ventilator and started on sedation with propofol and Nimbex for paralysis. Since then, the patient remains intubated on a mechanical ventilator. This morning, he is on a assist-control mode at rate of 28 with a tidal volume of 450, FiO2 of 30% with a PEEP of 5. He remains on lactated Ringer at rate of 75 cc an hour. TPN is running at 30 cc an hour. His most recent cultures from the bronchioloalveolar lavage on 03/17/2024 was still showing Pseudomonas aeruginosa and the patient remains on IV Zosyn. He is on Propofol at 50 mcg/kg/min. The blood gas from today showed a pH of 7.52 with a pCO2 of 28 and pO2 of 92. White cell count 6.7 with a hemoglobin of 8 and a platelet count of 257. BUN 11 creatinine 0.5 and a sodium level is at 132. His chest x-ray from today shows no significant consolidation or airspace disease. Some atelectatic changes in lung bases and s mall subpulmonic pleural effusion. ET tube is around 5 cm above the avery. Labs from today showed a white cell count of 6.7 with a hemoglobin of 8 and a platelet count of 157, sodium is at 132, potassium is at 3.8, bicarb is at 20 with a BUN of 11 and a creatinine of 0.52. He does have chronic muscle atrophy lower extremities bilaterally. Profound weakness in all 4 extremities. Adequate cough. On today's evaluation of 03/24/2024, the patient is awake while being on propofol at 50 mcg/kg/min and the patient is responding and communicating. Noted the tracheostomy tube was inserted yesterday and the patient is a extra long #[address] tube [address]. He is ventilating and oxygenating adequately. This morning, he is on assist-control mode of mechanical ventilation at rate of 20, tidal volume of 450, FiO2 30% with a PEEP of 5. He remains on TPN at rate of 30 cc an hour. He briefly required some pressors yesterday and currently is off norepinephrine. Lactated Ringer's running at a rate of 75 cc an hour and the patient remains on TPN for nutritional support. Output from the ileostomy is considerably high as noted. The patient remains on IV Zosyn. A follow-up chest x-ray from today shows tracheostomy tube being in good location. The patient continues to have bibasilar atelectatic changes/infiltrates with tiny effusions. The patient continues to have copious amount of respiratory secretions through his tracheostomy tube and around his tracheostomy stoma. No fever. Hemodynamically stable. Blood work from today shows a white cell count of 5.2, hemoglobin 7.8 and a platelet count of 249. Sodium is at 136, BUN is at 9 with a creatinine of 0.48. Serum bicarb is at 19. He is arousable. Communicating. Awake. Profoundly weak in all 4 extremities. Extensive muscle atrophy in all 4 extremities. 03/25/2024, the patient is doing well, off propofol, he has tolerated pressure support mode of mechanical ventilation for the past 24 hours and the patient is currently on a pressure support of 10 and a PEEP of 5. The patient wants to come off the mechanical ventilator and the patient wants to have some oral intake. I think that is reasonable. He still has a extra long #[address] tracheostomy tube in place. Respiratory secretions are manageable. Chest x-ray findings are essentially unchanged and the patient is currently off pressors. Remains on lactated Ringer at rate of 75 cc an hour. Remains on IV Zosyn. Blood gas from today shows a pH of 7.41 with a pCO2 of 41 and pO2 of 102. Remains on TPN for nutritional support at rate of 30 cc an hour. No other significant events overnight. He is calm and comfortable. His white cell count is at 5.1 with a hemoglobin of 8.1 and a platelet count of 227. Sodium is at 140, BUN is at 6 with a creatinine of 0.44 On 03/26/2024, the patient is awake and alert. Despite some interval worsening of the chest x-ray findings, the patient respiratory status remains stable. Chest x-ray from today showing significant opacification of the right lung with worsening opacification probably due to an underlying pleural effusion/atelectasis. The patient was given a dose of Lasix 40 mg IV and the patient is producing excellent urine output. Noted overall fluid balance was +393 cc over the past 24 hours. Meanwhile, the patient remains on 10 L of oxygen 40% trach collar. Communicating. Afebrile. Respiratory secretions are scant. The patient is on TPN at rate of 75 cc an hour. Patient remains on lactated Ringer at 75 cc an hour. The labs from today shows a white cell count of 5.5 with a hemoglobin 8.4 and a platelet count of 218. BUN is 7 with a creatinine of 0.4 and sodium levels at 139 and potassium level is 3.9. LFTs are essentially within normal limits. No other significant events overnight. Were considering transferring this patient to [facility]. Objective - Vital Signs Vital signs: Vital Signs Temp 98.0 F 03/26/24 04:00 Pulse 65 03/26/24 07:00 Resp 15 03/26/24 07:00 BP 105/56 03/26/24 02:00 Pulse Ox 98 03/26/24 07:00 FiO2 40 03/26/24 04:09 Intake & Output 03/25/24 03/26/24 03/26/24 18:59 06:59 18:59 Intake Total 1136 1761 158 Output Total 1505 815 350 Balance -369 946 -192 Weight 97.3 kg 104.1 kg Intake: IV 1036 1761 158 0.9% NS KVO 35 5 3cc/hr [place] 36 36 3 LR 75cc/hr 900 900 75 Mvi, Adult No.4 with Vit 90 K 10 ml Trace (Conc-1Ml/ Dose) 1 ml Sodium Chloride 4Meq/ml Vial 100 meq Potassium Acetate 60 meq Calcium Gluconate 1 gm Magnesium Sulfate gm 1 .5 gm Sodium Phosphate 21 mmol Sodium Acetate 60 meq In Amino Acids 5 %/ Dextrose 20 % 1,000 ml @ 30 mls/hr IV .Q24H [facility] Rx #:[id number] Mvi, Adult No.4 with Vit 600 75 K 10 ml Trace (Conc-1Ml/ Dose) 1 ml Sodium Chloride 4Meq/ml Vial 20 meq Potassium Acetate 40 meq Calcium Gluconate 1 gm Magnesium Sulfate gm 0 .5 gm Sodium Phosphate 15 mmol Sodium Acetate 60 meq In Amino Acids 5 %/ Dextrose 20 % 1,000 ml @ 75 mls/hr IV .BY DURATION [facility] Rx#:[id number] Piperacillin-Tazobactam 3 100 100 .375 gm In Sodium Chloride 0.9% 100 ml @ 25 mls/hr IVPB Q8HR [facility] Rx# :[id number] Intake, IV Titration 100 Amount Potassium Chloride 20 meq 100 In Water For Injection 1 100ml.bag @ 50 mls/hr IVPB ONCE ONE Rx#: [id number] Output: Urine 705 815 350 Stool 800 Other: Voiding Method Indwelling Catheter Indwelling Catheter ABP, PAP, CO, CI - Last Documented Arterial Blood Pressure 119/45 - Exam GENERAL: A 48-year-old male patient, [facility] tracheostomy tube in place. The patient is on a 40% trach collar Head exam was generally normal. There was no scleral icterus or corneal arcus. Mucous membranes were moist. HEENT: No scleral icterus. No conjunctival pallor. Normocephalic, atraumatic. CARDIOVASCULAR: S1 and S2 present. No murmurs, rubs, or gallops. PULMONARY: Diminished breath sounds were bilaterally. No wheezes rhonchi or crackles ABDOMEN: Soft, nontender, nondistended, normoactive bowel sounds. No palpable organomegaly. Functioning ileostomy. 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 EXTREMITIES: No cyanosis, clubbing, or pedal edema. NEUROLOGICAL: Profound weakness in all 4 extremities, weak cough, extensive muscle atrophy in all 4 extremities. awake and follows simple commands and communicates. SKIN: No rashes. Left chest PICC line. - Labs CBC & Chem 7: 03/26/24 04:30 03/26/24 04:30 Labs: Abnormal Lab Results - Last 24 Hours (Table) 03/26/24 03/26/24 03/26/24 Range/Units 04:30 04:30 06:22 RBC 3.50 L (4.30-5.90) m/uL Hgb 8.4 L (13.0-17.5) gm/dL Hct 29.8 L (39.0-53.0) % MCH 24.0 L (25.0-35.0) pg MCHC 28.2 L (31.0-37.0) g/dL RDW 15.9 H (11.5-15.5) % Chloride 108 H (98-107) mmol/L BUN 7 L (9-20) mg/dL Creatinine 0.41 L (0.66-1.25) mg/dL Glucose 114 H (74-99) mg/dL POC Glucose (mg/dL) 115 H (70-110) mg/dL Albumin 2.8 L (3.5-5.0) g/dL Assessment and Plan Plan: Acute hypoxic and hypercapnic respiratory failure, requiring mechanical intubation on 02/26/24. The patient is known to have chronic respiratory insufficiency as the patient has poor ability to perform pulmonary toileting, weak cough, and has had recurrent pneumonias with gram-negative and MRSA. Most recent sputum sample from 02/26/2024 is positive for Pseudomonas aeruginosa and the patient is currently on IV cefepime. Patient failed BiPAP therapy during this current admission the patient had to be intubated and placed on the mechanical ventilator on 02/26/2024. The patient was given a trial of extubation on 03/01/2024 and within 2 hours of extubation he had to be reintubated for increased work of breathing and hypoxic respiratory failure. Bronchoscopy was done on 03/02/2024 and 03/03/2024 revealed copious amount of purulent respiratory secretions and mucous plugs which probably contributing to his ongoing respiratory failure. The patient has poor ability to cough and perform pulmonary toileting and clear his respiratory secretions. 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 The bronchoalveolar lavage is showing Pseudomonas aeruginosa and the repeat cultures from 03/17/2024 was still positive for Pseudomonas aeruginosa and the sensitivities were noted and the patient remains on IV Zosyn. . The patient is status post tracheostomy tube insertion on 03/05/2024. Due to failure of ongoing mechanical ventilation and mucous plugging, the patient was reintubated on 03/17/2024 and since then the patient remains on the mechanical ventilator. Subsequently, the ET tube was removed and a tracheostomy tube #6 Shiley was inserted. The patient is currently on a 40% trach collar. Chest x-ray shows further opacification of the right lung probably combination of pleural fluid and atelectasis. Tracheal stenosis at the site of the previously inserted tracheostomy tube, visualized on most recent bronchoscopy Previous history of recurrent ventilator dependent respiratory failure, secondary to pneumonia and mucous plugging. The patient has undergone previous bronchoscopies and cultures from bronchoscopy on 12/31/2023 was positive for MRSA and subsequent bronchoscopy on 01/03/2024 was positive for Klebsiella pneum oniae and Bella glabrata. Most recent sputum analysis from 02/26/2024 and 03/17/2024 was positive for Pseudomonas aeruginosa and the patient is currently on IV Zosyn. Sepsis secondary to above, recurrent pneumonia, currently on no pressors Leukocytosis, resolved Crohn's disease, with previous complication of bowel perforation s/p colectomy and diverting ileostomy. The patient also has had previous history of abdominal wall bleeding there is currently inactive and stable. The patient has a high output ileostomy TPN for nutritional support Electrolyte imbalance at time of admission including hyponatremia, hypokalemia, hypophosphatemia, hypomagnesemia and hyperphosphatemia, all resolved Tracheobronchomalacia History of DVT, on therapeutic dose of Lovenox CVA/TIA, with residual left-sided weakness Right BKA History of asystole/cardiac arrest in 2021 Plan: Patient is awake and alert The patient is currently off sedation Patient is currently on 40% trach collar and he has been on the same set up for the past 24 hours Continue pulmonary toileting and suctioning as needed Ativan for anxiety Continue IV Zosyn Allow some oral intake along with assistance of speech pathology Adjust the TPN dose and the patient is currently receiving TPN at rate of 75 cc an hour Change IV fluids to KVO Given a dose of Lasix 40 mg IV push Repeat chest x-ray within next 24 hours Monitor his ileostomy output and the patient continues to have high output Continue Lovenox for previous history of DVT, therapeutic dose Possible discharge to LTAC Critical care evaluation done more than 30 minutes. Time with Patient: Greater than 30
[2024-03-26] MEDS: HYDROmorphone 1 MG/ML 1 ML SYRINGE IVP PRN (15:20)
[2024-03-26 17:22] LABS: Glucose,Whole Blood 118 mg/dL (70-110)
[2024-03-27 00:11] LABS: Glucose,Whole Blood 125 mg/dL (70-110)
[2024-03-27] MEDS: FUROSEMIDE 10 MG/ML 2 ML VIAL IV STA (00:15)
[2024-03-27 04:58] LABS: Anisocytosis Slight; Basophils % (A) 0 %; Eosinophils # (A) 0.2 k/uL (0-0.7); Eosinophils % (A) 3 %; HCT 31.7 % (39.0-53.0); HGB 9.3 gm/dL (13.0-17.5); Hypochromasia Marked; Lymphocytes % (A) 35 %; MCH 24.7 pg (25.0-35.0); MCHC 29.2 g/dL (31.0-37.0); MCV 84.3 fL (80.0-100.0); Monocytes # (A) 0.3 k/uL (0-1.0); Monocytes % (A) 5 %; Neutrophils # (A) 3.3 k/uL (1.3-7.7); Neutrophils % (A) 56 %; Platelet Count 213 k/uL (150-450); RBC 3.76 m/uL (4.30-5.90); RDW 16.1 % (11.5-15.5); WBC 5.9 k/uL (3.8-10.6)
[2024-03-27 05:10] LABS: African American GFR (CKD) >90 (>60 ml/min/1.73 sqM); Anion Gap 2 mmol/L; Blood Urea Nitrogen 15 mg/dL (9-20); Calcium 8.5 mg/dL (8.4-10.2); Carbon Dioxide 36 mmol/L (22-30); Chloride 104 mmol/L (98-107); Glucose 111 mg/dL (74-99); Magnesium 1.7 mg/dL (1.6-2.3); Non-African American GFR(CKD) >90 (>60 ml/min/1.73 sqM); Phosphorus 1.6 mg/dL (2.5-4.5); Potassium 3.2 mmol/L (3.5-5.1); Sodium 142 mmol/L (137-145)
[2024-03-27] MEDS ORDERED: Phosphorus Replacement Protoco 1 EACH MISC MISCELLANE PRN (05:38)
[2024-03-27] MEDS ORDERED: Potassium Replacement Protocol 1 EACH MISC MISCELLANE PRN (05:38)
[2024-03-27] MEDS ORDERED: Magnesium Replacement Protocol 1 EACH MISC MISCELLANE PRN (05:39)
[2024-03-27] MEDS: MAGNESIUM SULFATE-D5W PMX 1 GM in DEXTROSE/WATER 1 100ML.BAG IVPB ONE (06:00)
[2024-03-27] MEDS: POTASSIUM CHLORIDE 20 MEQ in WATER FOR INJECTION 1 100ML.BAG IVPB SCH (06:00)
[2024-03-27 06:34] LABS: Glucose,Whole Blood 101 mg/dL (70-110)
--- NOTE | 2024-03-27 06:36 | XR ---
EXAMINATION TYPE: XR chest 1V portable DATE OF EXAM: 03/27/2024 CLINICAL HISTORY: Difficulty breathing progress study. Right lung opacification. TECHNIQUE: Single AP portable semiupright view of the chest is obtained. COMPARISON: Chest x-ray from one day earlier and older studies. FINDINGS: Stable tracheostomy tube. Stable Left-sided central venous catheter. Persistent left basilar opacity. Improved but larger right lung opacity. Cardiomegaly is redemonstrat ed. Surgical clips in the right lower neck are redemonstrated. Osseous structures are intact. Cholecy stectomy clips are noted. IMPRESSION: Improved but persistent moderate right-sided pleural effusion and right lower lung consol idation/atelectasis. [facility], , 03/27/2024 6:34 AM
[2024-03-27] MEDS: SODIUM PHOSPHATE 30 MMOL in DEXTROSE 5% IN WATER 250 ML IVPB ONE (06:38)
[2024-03-27] MEDS: LORazepam 2 MG/ML INJ IV PRN (08:04)
[2024-03-27 08:37] VITALS: BMI 29.1
--- NOTE | 2024-03-27 08:59 | P.PN ---
Subjective Progress Note Date: 03/26/24 Patient is eval today in the intensive care unit. Patient remains intubated and on mechanical ventilator. Tracheostomy has dressing over it. No plans for transfer at this time he was denied at of in [facility] secondary to wait list for transfer. Additionally multiple other hospitals have refused transfer. Surgery with plans for extra long trach insertion. Patient states that he is having generalized pain and also significant discomfort in his throat IV Dilaudid was increased to every 2 hours. He remains on IV Solu-Cortef. He remains on TPN lipids. Patient is been off of vasopressor support. He continues on IV Zosyn. Chest x-ray today reveals bibasilar opacities favor atelectasis. He remains afebrile. 03/22/2024 Patient evaluated in follow-up in intensive care unit with family at the bedside. He is agitated today he does state that his throat is hurting still. Pending follow-up from general surgery with further recommendations for an extra long trach insertion. He remains on the mechanical ventilator at this time. Continues on TPN and lipids. Remains on IV Zosyn. Chest x-ray today reveals bibasilar acute infiltrates and tiny bilateral pleural effusions. Potassium 3.5 03/23/2024 Patient seen in follow-up with multiple consultations following. Pulmonary will be performing a bronchoscopy and further evaluation of this tracheal stenosis. Attempted multiple tertiary centers for transfer and patient was denied transfers. Patient currently maintained on mechanical ventilation and will await official pulmonary report. 03/24/2024 Patient seen follow-up today continues to be in the ICU with multiple consultations following. Patient remains on IV antibiotics with infectious disease following for pseudomonal infection will continue on Zosyn. Patient also continues on TPN and has been n.p.o. since reintubation. Yesterday patient underwent bronchoscopy with pulmonary chip loft worker with removal of oral tracheal tube and placement of extra long #6 Shiley tracheostomy tube. Patient is on assist mode and tolerating. Blood pressure is on the lower side requiring low- dose Levophed and is continued on low-dose propofol. Wean off propofol and continue with Ativan as needed along with pain medications. Patient continues to have significant amounts of pain at the tracheal site and is maintained on Dilaudid along with oral [place] and Toradol. Not much adjusting as blood pressures are soft although will attempt to control pain better. Will need to discuss further with consultations regarding discharge planning with case management/social work following if there is a discharge plan to [facility]. Patient will require extensive wound care as well as IV antibiotic therapy and frequent respiratory care including frequent suctioning. Patient not quite ready as of yet. Patient asking if he can eat again and will reconsult speech for evaluation. 03/25/2024 Patient is seen in follow-up today continues to report pain and requiring frequent suctioning. Not able to adjust pain meds further as patient is taking 1 mg of Dilaudid every 2 hours and also has [place] but per nursing staff patient is refusing that. Patient reports pain is at the tracheostomy site. Oxygenation is adequate maintained on trach and ventilation. Propofol has been discontinued as patient was using this and still completely awake and alert. Patient is afebrile with no reports of chest pain. Ostomy continues to be functioning with multiple amounts of loose stool. This is chronic. Patient is also continued on TPN and will continue at this time. Case management/social work following and will discuss further regarding discharge planning. Awaiting speech evaluation 03/26/2024 Patient is seen in follow-up today continues in the ICU via tracheostomy on vent working on possible especially. Social work is following making arrangements for discharge planning. Patient will continue on TPN and he has been evaluated by speech scheduled to undergo modified barium swallow today. Patient is currently afebrile with no reports of chest pain or worsening shortness of breath. Continue with frequent suctioning and head of the bed elevated 30 to 45 degrees. Review of Systems Constitutional: Denied any fatigue denied any fever. Cardio vascular: denied any chest pain, palpitations Gastrointestinal: denied any nausea, vomiting, diarrhea, reports to feeling hungry and requesting to eat Pulmonary: Denied any shortness of breath, reports cough, reports sore throat and pain at the trach site along with increased secretions Neurologic denied any new focal deficits All inpatient medications were reviewed and appropriate changes in these medications as dictated in the interval history and assessment and plan. PHYSICAL EXAMINATION: GENERAL: The patient is awake, alert and oriented x3, not in any acute distress. Mildly anxious. Well developed, well nourished. Assist mode on the vent via tracheostomy. HEENT: Pupils are round and equally reacting to light. EOMI. No scleral icterus. No conjunctival pallor. Normocephalic, atraumatic. No pharyngeal erythema. No thyromegaly. CARDIOVASCULAR: S1 and S2 present. No murmurs, rubs, or gallops. PULMONARY: Chest is clear to auscultation, no wheezing or crackles. Bronchial congestion noted ABDOMEN: Soft, nontender, nondistended, normoactive bowel sounds. No palpable organomegaly. Central abdominal wound with similar to colostomy bag in place connected to fecal management system MUSCULOSKELETAL: No joint swelling or deformity. EXTREMITIES: No cyanosis, clubbing, or pedal edema. Bilateral upper and lower extremity swelling with muscle wasting also noted NEUROLOGICAL: Gross neurological examination did not reveal any focal deficits. Diffuse weakness. Contractures on hands bilaterally. SKIN: No rashes. 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 Patient was transferred back on 03/17 for increased hypoxia and respiratory distress Continue on Zosyn. ID team on the case for continued pseudomonal infection. Pulmonary chip loft worker following and patient underwent bronchoscopy with extra long placement #6 Shiley cannula tracheostomy with oral tracheostomy removed Patient is requesting to eat and underwent modified barium swallow today with speech and passed and will be advanced on diet. Continue TPN and this was discussed with dietary as he is chronically on this Continue with IV hydrocortisone 50 mg 3 times daily Continue therapeutic dose of Lovenox 80 mg twice daily. Due to multiple complex medical issues, overall prognosis is guarded Will need to discuss further with chip loft worker along with case management/social work regarding discharge planning. [facility] and social work following with possible discharge in the next 24 hours The impression and plan of care has been dictated by Alyssa David, Nurse Practitioner as directed. Dr. Mo MD I have performed a history and physical examination and medical decision making of this patient, discussed the same with the dictator, and agree with the dictators assessment and plan as written, documented as a scribe. Based on total visit time, I have performed more than 50% of this visit. Plan Objective - Vital Signs Vital signs: Vital Signs Temp 98.6 F 03/27/24 08:00 Pulse 88 03/27/24 08:26 Resp 16 03/27/24 08:00 BP 104/63 03/26/24 19:00 Pulse Ox 96 03/27/24 08:00 FiO2 28 03/27/24 08:15 Intake & Output 03/26/24 03/27/24 03/27/24 18:59 06:59 18:59 Intake Total 2517 2411 501 Output Total 5455 5540 60 Balance -2938 -3129 441 Weight 92.1 kg 92.1 kg Intake: IV 1196 1531 501 0.9% NS KVO 60 40 10 3cc/hr Lorrie 36 36 6 LR 75cc/hr 350 20 Lactated Ringers 500 ml @ 220 20 20 mls/hr IV .Q24H [facility] Rx#:[id number] Magnesium Sulfate-D5w Pmx 100 1 gm In Dextrose/Water 1 100ml.bag @ 100 mls/hr IVPB ONCE ONE Rx#: [id number] Mvi, Adult No.4 with Vit 750 825 K 10 ml Trace (Conc-1Ml/ Dose) 1 ml Sodium Chloride 4Meq/ml Vial 20 meq Potassium Acetate 40 meq Calcium Gluconate 1 gm Magnesium Sulfate gm 0 .5 gm Sodium Phosphate 15 mmol Sodium Acetate 60 meq In Amino Acids 5 %/ Dextrose 20 % 1,000 ml @ 75 mls/hr IV .BY DURATION [facility] Rx#:[id number] Piperacillin-Tazobactam 3 100 100 .375 gm In Sodium Chloride 0.9% 100 ml @ 25 mls/hr IVPB Q8HR [facility] Rx# :[id number] Potassium Chloride 20 meq 50 150 In Water For Injection 1 100ml.bag @ 50 mls/hr IVPB Q2H [facility] Rx#: [id number] Sodium Chloride 4Meq/ml 75 150 Vial 20 meq Potassium Acetate 40 meq Calcium Gluconate 1 gm Magnesium Sulfate gm 0.5 gm Sodium Phosphate 15 mmol Sodium Acetate 60 meq In Amino Acids 5 %/Dextrose 20 % 1 ,000 ml @ 75 mls/hr IV . BY DURATION [facility] Rx#: [id number] Sodium Phosphate 30 mmol 65 65 In Dextrose 5% in Water 250 ml @ 65 mls/hr IVPB ONCE ONE Rx#:[id number] Intake, IV Titration 1071 Amount Sodium Chloride 4Meq/ml 1071 Vial 20 meq Potassium Acetate 40 meq Calcium Gluconate 1 gm Magnesium Sulfate gm 0.5 gm Sodium Phosphate 15 mmol Sodium Acetate 60 meq In Amino Acids 5 %/Dextrose 20 % 1 ,000 ml @ 75 mls/hr IV . BY DURATION [facility] Rx#: [id number] Oral 250 880 Output: Urine 2955 1340 60 Stool 2500 4200 Other: Voiding Method Indwelling Catheter Indwelling Catheter ABP, PAP, CO, CI - Last Documented Arterial Blood Pressure 143/61 - Labs CBC & Chem 7: 03/27/24 04:41 03/27/24 04:41 Labs: Abnormal Lab Results - Last 24 Hours (Table) 03/26/24 03/26/24 03/27/24 Range/Units 11:20 17:20 00:10 RBC (4.30-5.90) m/uL Hgb (13.0-17.5) gm/dL Hct (39.0-53.0) % MCH (25.0-35.0) pg MCHC (31.0-37.0) g/dL RDW (11.5-15.5) % Potassium (3.5-5.1) mmol/L Carbon Dioxide (22-30) mmol/L Creatinine (0.66-1.25) mg/dL Glucose (74-99) mg/dL POC Glucose (mg/dL) 114 H 118 H 125 H (70-110) mg/dL Phosphorus (2.5-4.5) mg/dL 03/27/24 03/27/24 Range/Units 04:41 04:41 RBC 3.76 L (4.30-5.90) m/uL Hgb 9.3 L (13.0-17.5) gm/dL Hct 31.7 L (39.0-53.0) % MCH 24.7 L (25.0-35.0) pg MCHC 29.2 L (31.0-37.0) g/dL RDW 16.1 H (11.5-15.5) % Potassium 3.2 L (3.5-5.1) mmol/L Carbon Dioxide 36 H (22-30) mmol/L Creatinine 0.47 L (0.66-1.25) mg/dL Glucose 111 H (74-99) mg/dL POC Glucose (mg/dL) (70-110) mg/dL Phosphorus 1.6 L (2.5-4.5) mg/dL Microbiology - Last 24 Hours (Table) 03/26/24 15:38 Gram Stain - Preliminary Sputum 03/17/24 11:15 Acid Fast Bacilli Smear - Preliminary Bronchoalviolar Lavage - Right Acid Fast Bacilli Culture - Preliminary
[2024-03-27 12:07] LABS: Glucose,Whole Blood 101 mg/dL (70-110)
--- NOTE | 2024-03-27 14:00 | P.PN ---
Subjective Progress Note Date: 03/27/24 On 03/23/2024, the patient is being seen for a follow-up. The patient remains intubated on the mechanical ventilator. The patient is well-known to me. The patient has history of acute on top of chronic hypoxic and hypercapnic respiratory failure and he required intubation on 02/26/2024. He does have chr onic respiratory insufficiency due to poor ability to perform pulmonary toileting and a weak cough and he has developed recurrent pneumonias with gram- negative and MRSA. Note that sputum samples from 02/26/2024 were positive for Pseudomonas aeruginosa. The patient required intubation mechanical ventilation initially on 02/26/2024. He required several bronchoscopies that showed purulent respiratory secretions and mucous plugging contributing to his respiratory failure. My recommendation at that time was to proceed with tracheostomy . Tracheostomy tube insertion that was inserted on 03/05/2024 and the patient was weaned off the mechanical ventilator. He also has a component of tracheal stenosis and this is a site of the previously tracheostomy tube. Subsequently, the patient got released out of the intensive care unit to be readmitted back to the intensive care unit as a rapid response team was called on this patient for increased respiratory distress. The patient was receiving b ag valve mask ventilation and he was still hypoxic. At that point, the decision by Dr. Munoz was made to wean the patient orally and the tracheostomy tube was removed and the patient was connected back to the mechanical ventilator and started on sedation with propofol and Nimbex for paralysis. Since then, the patient remains intubated on a mechanical ventilator. This morning, he is on a assist-control mode at rate of 28 with a tidal volume of 450, FiO2 of 30% with a PEEP of 5. He remains on lactated Ringer at rate of 75 cc an hour. TPN is running at 30 cc an hour. His most recent cultures from the bronchioloalveolar lavage on 03/17/2024 was still showing Pseudomonas aeruginosa and the patient remains on IV Zosyn. He is on Propofol at 50 mcg/kg/min. The blood gas from today showed a pH of 7.52 with a pCO2 of 28 and pO2 of 92. White cell count 6.7 with a hemoglobin of 8 and a platelet count of 257. BUN 11 creatinine 0.5 and a sodium level is at 132. His chest x-ray from today shows no significant consolidation or airspace disease. Some atelectatic changes in lung bases and s mall subpulmonic pleural effusion. ET tube is around 5 cm above the avery. Labs from today showed a white cell count of 6.7 with a hemoglobin of 8 and a platelet count of 157, sodium is at 132, potassium is at 3.8, bicarb is at 20 with a BUN of 11 and a creatinine of 0.52. He does have chronic muscle atrophy lower extremities bilaterally. Profound weakness in all 4 extremities. Adequate cough. On today's evaluation of 03/24/2024, the patient is awake while being on propofol at 50 mcg/kg/min and the patient is responding and communicating. Noted the tracheostomy tube was inserted yesterday and the patient is a extra long #[address] He is ventilating and oxygenating adequately. This morning, he is on assist-control mode of mechanical ventilation at rate of 20, tidal volume of 450, FiO2 30% with a PEEP of 5. He remains on TPN at rate of 30 cc an hour. He briefly required some pressors yesterday and currently is off norepinephrine. Lactated Ringer's running at a rate of 75 cc an hour and the patient remains on TPN for nutritional support. Output from the ileostomy is considerably high as noted. The patient remains on IV Zosyn. A follow-up chest x-ray from today shows tracheostomy tube being in good location. The patient continues to have bibasilar atelectatic changes/infiltrates with tiny effusions. The patient continues to have copious amount of respiratory secretions through his tracheostomy tube and around his tracheostomy stoma. No fever. Hemodynamically stable. Blood work from today shows a white cell count of 5.2, hemoglobin 7.8 and a platelet count of 249. Sodium is at 136, BUN is at 9 with a creatinine of 0.48. Serum bicarb is at 19. He is arousable. Communicating. Awake. Profoundly weak in all 4 extremities. Extensive muscle atrophy in all 4 extremities. 03/25/2024, the patient is doing well, off propofol, he has tolerated pressure support mode of mechanical ventilation for the past 24 hours and the patient is currently on a pressure support of 10 and a PEEP of 5. The patient wants to come off the mechanical ventilator and the patient wants to have some oral intake. I think that is reasonable. He still has a extra long #6 [address] tracheostomy tube in place. Respiratory secretions are manageable. Chest x-ray findings are essentially unchanged and the patient is currently off pressors. Remains on lactated Ringer at rate of 75 cc an hour. Remains on IV Zosyn. Blood gas from today shows a pH of 7.41 with a pCO2 of 41 and pO2 of 102. Remains on TPN for nutritional support at rate of 30 cc an hour. No other significant events overnight. He is calm and comfortable. His white cell count is at 5.1 with a hemoglobin of 8.1 and a platelet count of 227. Sodium is at 140, BUN is at 6 with a creatinine of 0.44 On 03/26/2024, the patient is awake and alert. Despite some interval worsening of the chest x-ray findings, the patient respiratory status remains stable. Chest x-ray from today showing significant opacification of the right lung with worsening opacification probably due to an underlying pleural effusion/atelectasis. The patient was given a dose of Lasix 40 mg IV and the patient is producing excellent urine output. Noted overall fluid balance was +393 cc over the past 24 hours. Meanwhile, the patient remains on 10 L of oxygen 40% trach collar. Communicating. Afebrile. Respiratory secretions are scant. The patient is on TPN at rate of 75 cc an hour. Patient remains on lactated Ringer at 75 cc an hour. The labs from today shows a white cell count of 5.5 with a hemoglobin 8.4 and a platelet count of 218. BUN is 7 with a creatinine of 0.4 and sodium levels at 139 and potassium level is 3.9. LFTs are essentially within normal limits. No other significant events overnight. Were [facility] 03/27/2024, patient is being seen for a follow-up. The patient is awake and alert and communicating. The patient remains on a 28% trach collar. No respiratory distress. No significant respiratory secretions. The patient remains on TPN for nutritional support with rate of 75 cc an hour. IV fluids are currently at KVO. Ileostomy output was quite high in the order of 3 L over the past 24 hours. Accordingly, the net fluid balance has been -6 L. Urine output is adequate more than 30 cc an hour. The patient passed a swallow eval uation and the patient is also receiving oral intake. No fever. No chills. Hemodynamically stable. White cell count of 5.9 with a hemoglobin 9.3 and a platelet count of 213. BUN is 15 with a creatinine of 0.7.Note that a follow-up chest x-ray was also obtained from today and it showed improvement in the right- sided opacity with some residual effusion and cardiomegaly still being noted. Objective - Vital Signs Vital signs: Vital Signs Temp 98.3 F 03/27/24 13:00 Pulse 85 03/27/24 13:00 Resp 14 03/27/24 13:00 BP 103/64 03/27/24 11:00 Pulse Ox 95 03/27/24 13:00 FiO2 28 03/27/24 13:00 Intake & Output 03/26/24 03/27/24 03/27/24 18:59 06:59 18:59 Intake Total 2517 2411 937 Output Total 5445 5540 695 Balance -2938 -3129 242 Weight 92.1 kg 92.1 kg Intake: IV 1196 1531 937 0.9% NS KVO 60 40 35 3cc/hr [place] 36 36 21 LR 75cc/hr 350 20 Lactated Ringers 500 ml @ 220 20 20 mls/hr IV .Q24H [facility] Rx#:[id number] Magnesium Sulfate-D5w Pmx 100 1 gm In Dextrose/Water 1 100ml.bag @ 100 mls/hr IVPB ONCE ONE Rx#: [id number] Mvi, Adult No.4 with Vit 750 825 K 10 ml Trace (Conc-1Ml/ Dose) 1 ml Sodium Chloride 4Meq/ml Vial 20 meq Potassium Acetate 40 meq Calcium Gluconate 1 gm Magnesium Sulfate gm 0 .5 gm Sodium Phosphate 15 mmol Sodium Acetate 60 meq In Amino Acids 5 %/ Dextrose 20 % 1,000 ml @ 75 mls/hr IV .BY DURATION [facility] Rx#:[id number] Piperacillin-Tazobactam 3 100 100 .375 gm In Sodium Chloride 0.9% 100 ml @ 25 mls/hr IVPB Q8HR [facility] Rx# :[id number] Potassium Chloride 20 meq 50 150 In Water For Injection 1 100ml.bag @ 50 mls/hr IVPB Q2H [facility] Rx#: [id number] Sodium Chloride 4Meq/ml 75 525 Vial 20 meq Potassium Acetate 40 meq Calcium Gluconate 1 gm Magnesium Sulfate gm 0.5 gm Sodium Phosphate 15 mmol Sodium Acetate 60 meq In Amino Acids 5 %/Dextrose 20 % 1 ,000 ml @ 75 mls/hr IV . BY DURATION [facility] Rx#: [id number] Sodium Phosphate 30 mmol 65 65 In Dextrose 5% in Water 250 ml @ 65 mls/hr IVPB ONCE ONE Rx#:[id number] lipids 21 Intake, IV Titration 1071 Amount Sodium Chloride 4Meq/ml 1071 Vial 20 meq Potassium Acetate 40 meq Calcium Gluconate 1 gm Magnesium Sulfate gm 0.5 gm Sodium Phosphate 15 mmol Sodium Acetate 60 meq In Amino Acids 5 %/Dextrose 20 % 1 ,000 ml @ 75 mls/hr IV . BY DURATION [facility] Rx#: [id number] Oral 250 880 Output: Urine 2955 1340 245 Stool 2500 4200 450 Other: Voiding Method Indwelling Catheter Indwelling Catheter Indwelling Catheter ABP, PAP, CO, CI - Last Documented Arterial Blood Pressure 125/57 - Exam GENERAL: A 48-year-old male patient, [facility] tracheostomy tube in place. The patient is on a 28% trach collar Head exam was generally normal. There was no scleral icterus or corneal arcus. Mucous membranes were moist. HEENT: No scleral icterus. No conjunctival pallor. Normocephalic, atraumatic. CARDIOVASCULAR: S1 and S2 present. No murmurs, rubs, or gallops. PULMONARY: Diminished breath sounds were bilaterally. No wheezes rhonchi or crackles ABDOMEN: Soft, nontender, nondistended, normoactive bowel sounds. No palpable organomegaly. Functioning ileostomy. 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 EXTREMITIES: No cyanosis, clubbing, or pedal edema. NEUROLOGICAL: Profound weakness in all 4 extremities, weak cough, extensive muscle atrophy in all 4 extremities. awake and follows simple commands and c ommunicates. SKIN: No rashes. Left chest PICC line. - Labs CBC & Chem 7: 03/27/24 04:41 03/27/24 04:41 Labs: Abnormal Lab Results - Last 24 Hours (Table) 03/26/24 03/27/24 03/27/24 Range/Units 17:20 00:10 04:41 RBC (4.30-5.90) m/uL Hgb (13.0-17.5) gm/dL Hct (39.0-53.0) % MCH (25.0-35.0) pg MCHC (31.0-37.0) g/dL RDW (11.5-15.5) % Potassium 3.2 L (3.5-5.1) mmol/L Carbon Dioxide 36 H (22-30) mmol/L Creatinine 0.47 L (0.66-1.25) mg/dL Glucose 111 H (74-99) mg/dL POC Glucose (mg/dL) 118 H 125 H (70-110) mg/dL Phosphorus 1.6 L (2.5-4.5) mg/dL 03/27/24 Range/Units 04:41 RBC 3.76 L (4.30-5.90) m/uL Hgb 9.3 L (13.0-17.5) gm/dL Hct 31.7 L (39.0-53.0) % MCH 24.7 L (25.0-35.0) pg MCHC 29.2 L (31.0-37.0) g/dL RDW 16.1 H (11.5-15.5) % Potassium (3.5-5.1) mmol/L Carbon Dioxide (22-30) mmol/L Creatinine (0.66-1.25) mg/dL Glucose (74-99) mg/dL POC Glucose (mg/dL) (70-110) mg/dL Phosphorus (2.5-4.5) mg/dL Microbiology - Last 24 Hours (Table) 03/26/24 15:38 Gram Stain - Preliminary Sputum Sputum Culture - Preliminary Pseudomonas aeruginosa 03/17/24 11:15 Acid Fast Bacilli Smear - Preliminary Bronchoalviolar Lavage - Right Acid Fast Bacilli Culture - Preliminary Assessment and Plan Plan: Acute hypoxic and hypercapnic respiratory failure, requiring mechanical intubation on 02/26/24. The patient is known to have chronic respiratory insufficiency as the patient has poor ability to perform pulmonary toileting, weak cough, and has had recurrent pneumonias with gram-negative and MRSA. Most recent sputum sample from 02/26/2024 is positive for Pseudomonas aeruginosa and the patient is currently on IV cefepime. Patient failed BiPAP therapy during this current admission the patient had to be intubated and placed on the mechanical ventilator on 02/26/2024. The patient was given a trial of extubation on 03/01/2024 and within 2 hours of extubation he had to be reintubat ed for increased work of breathing and hypoxic respiratory failure. Bronchoscopy was done on 03/02/2024 and 03/03/2024 revealed copious amount of purulent respiratory secretions and mucous plugs which probably contributing to his ongoing respiratory failure. The patient has poor ability to cough and perform pulmonary toileting and clear his respiratory secretions. 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 The bronchoalveolar lavage is showing Pseudomonas aeruginosa and the repeat cultures from 03/17/2024 was still positive for Pseudomonas aeruginosa and the sensitivities were noted and the patient remains on IV Zosyn. . The patient is status post tracheostomy tube insertion on 03/05/2024. Due to failure of ongoing mechanical ventilation and mucous plugging, the patient was reintubated on 03/17/2024 and since then the patient remains on the mechanical ventilator. Subsequently, the ET tube was removed and a tracheostomy tube #6 Shiley was inserted. The patient is curre ntly on a 28% trach collar. Chest x-ray shows improvement in the right lung opacity which is probably combination of effusion and atelectasis. Sputum sample still positive for Pseudomonas aeruginosa on 03/26/2024. The patient remains on IV Zosyn. Tracheal stenosis at the site of the previously inserted tracheostomy tube, visualized on most recent bronchoscopy Previous history of recurrent ventilator dependent respiratory failure, secondary to pneumonia and mucous plugging. The patient has undergone previous bronchoscopies and cultures from bronchoscopy on 12/31/2023 was positive for MRSA and subsequent bronchoscopy on 01/03/2024 was positive for Klebsiella pneumoniae and Bella glabrata. Most recent sputum analysis from 02/26/2024 and 03/17/2024 was positive for Pseudomonas aeruginosa and the patient is currently on IV Zosyn. Sputum sample from 03/26/2024 was still positive for Pseu domonas aeruginosa. Sepsis secondary to above, recurrent pneumonia, currently on no pressors Leukocytosis, resolved Crohn's disease, with previous complication of bowel perforation s/p colectomy and diverting ileostomy. The patient also has had previous history of abdominal wall bleeding there is currently inactive and stable. The patient has a high output ileostomy TPN for nutritional support Electrolyte imbalance at time of admission including hyponatremia, hypokalemia, hypophosphatemia, hypomagnesemia and hyperphosphatemia, all resolved Tracheobronchomalacia History of DVT, on therapeutic dose of Lovenox CVA/TIA, with residual left-sided weakness Right BKA History of asystole/cardiac arrest in 2021 Plan: Patient is awake and alert The patient is currently off sedation Patient is currently on 28 % trach collar and he has been on the same set up for the past 24 hours Continue pulmonary toileting and suctioning as needed Chest x-ray is improving Ativan for anxiety Continue IV Zosyn Allow some oral intake along with assistance of speech pathology TPN at rate of 75 cc an hour Change IV fluids to KVO No need for diuretics in the patient remains in negative fluid balance Repeat chest x-ray from today was noted and there is improvement in the right lung opacification which is a combination of atelectasis and effusion. Monitor his ileostomy output and the patient continues to have high output Continue Lovenox for previous history of DVT, therapeutic dose Possible discharge to LTAC today Critical care evaluation done more than 30 minutes. Time with Patient: Greater than 30
--- NOTE | 2024-03-27 14:04 | P.DS ---
Providers Date of admission: 02/25/24 17:20 Expected date of discharge: 03/27/24 Attending physician: Chepe Garrett Consults: 02/25/24 17:20 Consult Physician Routine Consulting Provider: Aureliano Pearce Consult Reason/Comments: hypoxia Do you want consulting provider notified?: Yes Consult Physician Routine Consulting Provider: Javid Munoz Consult Reason/Comments: hypoxia Do you want consulting provider notified?: Yes 02/26/24 14:13 Consult Physician Urgent Consulting Provider: Chanel Uriostegui Consult Reason/Comments: hypoxia, pna Do you want consulting provider notified?: Yes Primary care physician: Chong Ivey [facility] Course: Final diagnosis Pseudomonas pneumonia with sepsis, and acute hypoxic respiratory failure with right lower lobe pneumonia, present on admission, status post mechanical ventilation requiring tracheostomy, culture showing Pseudomonas Septic shock secondary to above Acute hypoxic respiratory failure secondary to above requiring intubation and mechanical ventilation on 03/17 Status post tracheostomy with history of tracheal stenosis, status post bronchoscopy with #6 extra long Shiley cannula placed by pulmonary 03/23/2024 Recurrent mucous plugging 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 Patient will follow-up with Dr. Ivey if still established in the outpatient setting upon discharge. Patient is to continue with IV Zosyn every 8 hours for the next 3 days per ID recommendations. Total time taken is greater than 35 minutes. Hospital course This is a 48-year-old male who was recently admitted with increased shortness of breath with acute hypoxic respiratory failure secondary to right lower lobe pneumonia that was present on admission requiring mechanical ventilation. Patient with prolonged mechanical ventilation requiring tracheostomy placement. 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 Patient having some improvements in oxygenation and maintained on trach collar 08/12. Patient does continue on TPN and chronically for severe protein calorie malnutrition with significant history of Crohn's disease and multiple bowel perforations with surgeries. Patient does have history of DVT of the right and a below the knee amputation and is maintained on Lovenox currently. Patient cultures showing Pseudomonas pneumonia and per ID recommendations will continue on IV Zosyn 3 times daily for the next 3 days to complete the course. Patient has had multiple hospitalizations with respiratory failure due to significant secretions and mucous plugging. Patient is high risk for aspiration as well. Patient was reevaluated by speech after long Shiley placed and was successful on modified barium swallow and has been advanced to a diet. Continue with TPN at this time. Patient is to continue with local wound care and ostomy care. Patient does follow with Dr. Ivey in the outpatient setting although unsure if he is still established as he was having multiple rehospitalizations and extreme difficulty making it to her office for evaluation. Patient with significant weakness and prolonged hospitalization with multiple hospitalizations [facility] and will be discharged today. Patient has been cleared by consultations. Please refer to consultation notes for further HPI. Currently no reports of chest pain, no worsening shortness of breath, or palpitations. Patient is afebrile. No reports of nausea or vomiting and patient is tolerating diet. [facility]. Extremely overall guarded prognosis and high risk for readmissions. Patient's CODE STATUS is full code and this has been addressed multiple times and each hospitalization and patient and family wish to remain full code. Physical exam: Gen: This is a 48-year-old male who is awake, alert and oriented x 3, well- developed, elderly appearing, ill-appearing, bedbound HEENT: Head is atraumatic, normocephalic. Pupils equal, round. Sclerae is anicteric. NECK: Supple. No JVD. No lymphadenopathy. No thyromegaly. LUNGS: Diminished breath sounds bilaterally with coarse rhonchi and bronchial congestion noted. No intercostal retractions. HEART: S1, S2 are muffled ABDOMEN: Soft. Obese. Significant abdominal scarring and wounds noted with an extremely large abdominal wall ostomy. Bowel sounds are present. No masses. No tenderness. EXTREMITIES: No pedal edema. No calf tenderness. NEUROLOGICAL: Patient is awake, alert and oriented x3. Diffusely weak Please refer to medication reconciliation sheet for a list of medications. The impression and plan of care has been dictated by Alyssa Hernandez, Nurse Practitioner as directed. Dr. Mo MD I have performed a history and examination and MDM of this patient, discussed the same with the dictator, and agree with the dictator's assessment and plan as written ,documented as a scribe. Based on total visit time, I have performed more than 50% of the visit. Patient Condition at Discharge: Fair Plan - Discharge Summary New Discharge Prescriptions: New Ipratropium-Albuterol Nebulize [Duoneb 0.5 mg-3 mg/3 ml Soln] 3 ml INHALATION RT-Q2H PRN each PRN Reason: Shortness Of Breath Or Wheezing Folic Acid 1 mg PO DAILY@1200 tab Thiamine [Vitamin B-1] 100 mg PO BID-W/MEALS tab Piperacillin-Tazobactam [Zosyn] 3.375 gm IVPB Q8HR 3 Days #9 each HYDROcodone/APAP 10-325MG [Ft [place] 10-325] 1 each PO Q6HR PRN #6 tab PRN Reason: Severe Pain (Scale 7 To 10) Continue Enoxaparin [Lovenox] 80 mg SQ BID@0900,2100 Pantoprazole [Protonix] 40 mg PO DAILY@0730 Albuterol Sulfate [Albuterol Sulfate Hfa] 2 puff INHALATION RT-Q4H PRN PRN Reason: Shortness Of Breath Vitamin A 2,400 mcg PO DAILY@0900 Cholecalciferol (Vitamin D3) [Vitamin D3 (1250 Mcg = 50,000 Iu)] 1,250 mcg PO MOTH 0.9 % Sodium Chloride [Sodium Chloride Flush] 10 ml IV DAILY@1000 0.9 % Sodium Chloride [Sodium Chloride Flush] 10 ml IV DAILY PRN PRN Reason: picc line flush Heparin Sodium,Porcine/Pf [Heparin 500 Unit/5 ml (100/ml) Flush] 500 unit IV DAILY@1000 traZODone HCL [Desyrel] 50 mg PO HS PRN PRN Reason: sleep Heparin Sodium,Porcine/Pf [Heparin 500 Unit/5 ml (100/ml) Flush] 500 unit IV DAILY PRN PRN Reason: picc line flush Sodium Chloride 0.65% Nasal [Deep Sea (Saline)] 2 spray NASAL QID PRN ml PRN Reason: Dry Nasal Passages Ipratropium-Albuterol Nebulize [Duoneb 0.5 mg-3 mg/3 ml Soln] 3 ml INHALATION RT-QID #100 each Omeprazole [PriLOSEC] 40 mg PO DAILY@0900 Discontinued Loperamide HCl [Loperamide] 4 mg PO QID@08,12,16,20 Metoprolol Tartrate [Lopressor] 12.5 mg PO BID@0900,2100 Ferrous Sulfate [Iron (65 MG Elemental)] 325 mg PO DAILY@0900 Uauqc-Avn-Qidr 280-160-250 mg [Neutra-Phos Packet] 1 packet PO TID Furosemide [Lasix] 40 mg PO BID@0900,1600 #30 tab Discharge Medication List Enoxaparin [Lovenox] 80 mg SQ BID@0900,2100 07/07/22 [History] Pantoprazole [Protonix] 40 mg PO DAILY@0730 07/07/22 [History] Albuterol Sulfate [Albuterol Sulfate Hfa] 2 puff INHALATION RT-Q4H PRN 09/10/22 [History] Heparin Sodium,Porcine/Pf [Heparin 500 Unit/5 ml (100/ml) Flush] 500 unit IV DAILY PRN 12/12/23 [History] Vitamin A 2,400 mcg PO DAILY@0912/12/23 [History] traZODone HCL [Desyrel] 50 mg PO HS PRN 12/12/23 [History] Cholecalciferol (Vitamin D3) [Vitamin D3 (1250 Mcg = 50,000 Iu)] 1,250 mcg PO MOTH 12/13/23 [History] Ipratropium-Albuterol Nebulize [Duoneb 0.5 mg-3 mg/3 ml Soln] 3 ml INHALATION RT-QID #100 each 01/14/24 [Rx] Sodium Chloride 0.65% Nasal [Deep Sea (Saline)] 2 spray NASAL QID PRN ml 01/14/24 [Rx] 0.9 % Sodium Chloride [Sodium Chloride Flush] 10 ml IV DAILY PRN 02/25/24 [History] 0.9 % Sodium Chloride [Sodium Chloride Flush] 10 ml IV DAILY@1000 02/25/24 [History] Heparin Sodium,Porcine/Pf [Heparin 500 Unit/5 ml (100/ml) Flush] 500 unit IV DAILY@1000 02/25/24 [History] Omeprazole [PriLOSEC] 40 mg PO DAILY@0900 02/25/24 [History] Folic Acid 1 mg PO DAILY@1200 tab 03/27/24 [Rx] HYDROcodone/APAP 10-325MG [Ft [place] 10-325] 1 each PO Q6HR PRN #6 tab 03/27/24 [Rx] Ipratropium-Albuterol Nebulize [Duoneb 0.5 mg-3 mg/3 ml Soln] 3 ml INHALATION RT-Q2H PRN each 03/27/24 [Rx] Piperacillin-Tazobactam [Zosyn] 3.375 gm IVPB Q8HR 3 Days #9 each 03/27/24 [Rx] Thiamine [Vitamin B-1] 100 mg PO BID-W/MEALS tab 03/27/24 [Rx] Follow up Appointment(s)/Referral(s): Chong Ivey DO [Primary Care Provider] - 1-2 days [facility] [REFERRING] - As Needed Activity/Diet/Wound Care/Special Instructions: [facility] Activity as tolerated Patient is continued on trach collar at 08/12 Patient will continue on Zosyn 3 times daily for the next 3 days to complete the course Continue with TPN with pharmacy to dose Continue with local wound care and ostomy care Patient is also maintained on a regular diet and strongly recommend aspiration precautions with head of the bed 30 to 45 degrees at all times Patient will require frequent suctioning with significant secretions at times Discharge Disposition: DC/[facility] FAC
[2024-03-27 16:17] VITALS: TEMP 98.7
[2024-03-27 17:23] VITALS: BP 104/63; PULSE 98; RESP 21
[2024-03-27] MEDS ORDERED: [UNRECOGNIZED DRUG - MIXTURE] IV SCH (20:00)
--- NOTE | 2024-03-29 08:46 | P.PN ---
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 Tracheostomy has been removed the patient has been intubated and transferred back to the ICU. Patient is status post tracheostomy procedure completed on 03/23/2024. On today's evaluation that is 03/27/2024, the patient continues to be afebrile, the patient is on trach collar and breathing comfortably, the Pt denies having any chest pain or any worsening cough, the patient denies having any abdominal pain no vomiting tolerating his diet. Patient white count is 5.8, creatinine 0.47 Objective - Vital Signs Vital signs: Vital Signs Temp 98.7 F 03/27/24 16:00 Pulse 98 03/27/24 17:00 Resp 21 03/27/24 17:00 BP 104/63 03/27/24 17:00 Pulse Ox 96 03/27/24 17:00 FiO2 28 03/27/24 16:25 Intake & Output 03/27/24 03/27/24 03/28/24 06:59 18:59 06:59 Intake Total 2411 1353 Output Total 5540 1890 Balance -3129 -537 Weight 92.1 kg 92.1 kg Intake: IV 1531 1353 0.9% NS KVO 40 55 3cc/hr Lorrie 36 33 LR 75cc/hr 20 Lactated Ringers 500 ml @ 220 20 20 mls/hr IV .Q24H [facility] Rx#:[id number] Magnesium Sulfate-D5w Pmx 100 1 gm In Dextrose/Water 1 100ml.bag @ 100 mls/hr IVPB ONCE ONE Rx#: [id number] Mvi, Adult No.4 with Vit 825 K 10 ml Trace (Conc-1Ml/ Dose) 1 ml Sodium Chloride 4Meq/ml Vial 20 meq Potassium Acetate 40 meq Calcium Gluconate 1 gm Magnesium Sulfate gm 0 .5 gm Sodium Phosphate 15 mmol Sodium Acetate 60 meq In Amino Acids 5 %/ Dextrose 20 % 1,000 ml @ 75 mls/hr IV .BY DURATION [facility] Rx#:[id number] Piperacillin-Tazobactam 3 100 100 .375 gm In Sodium Chloride 0.9% 100 ml @ 25 mls/hr IVPB Q8HR [facility] Rx# :[id number] Potassium Chloride 20 meq 50 150 In Water For Injection 1 100ml.bag @ 50 mls/hr IVPB Q2H [facility] Rx#: [id number] Sodium Chloride 4Meq/ml 75 825 Vial 20 meq Potassium Acetate 40 meq Calcium Gluconate 1 gm Magnesium Sulfate gm 0.5 gm Sodium Phosphate 15 mmol Sodium Acetate 60 meq In Amino Acids 5 %/Dextrose 20 % 1 ,000 ml @ 75 mls/hr IV . BY DURATION [facility] Rx#: [id number] Sodium Phosphate 30 mmol 65 65 In Dextrose 5% in Water 250 ml @ 65 mls/hr IVPB ONCE ONE Rx#:[id number] lipids 105 Oral 880 Output: Urine 1340 440 Stool 4200 1450 Other: Voiding Method Indwelling Catheter Indwelling Catheter ABP, PAP, CO, CI - Last Documented Arterial Blood Pressure 121/56 - Exam GENERAL DESCRIPTION: Middle-age man intubated through the trach RESPIRATORY SYSTEM: Unlabored breathing , decreased intensity of breath sounds HEART: S1 S2 regular rate and rhythm , ABDOMEN: Soft , no tenderness - Labs CBC & Chem 7: 03/27/24 04:41 03/27/24 04:41 Labs: Abnormal Lab Results - Last 24 Hours (Table) 03/27/24 03/27/24 03/27/24 Range/Units 00:10 04:41 04:41 RBC 3.76 L (4.30-5.90) m/uL Hgb 9.3 L (13.0-17.5) gm/dL Hct 31.7 L (39.0-53.0) % MCH 24.7 L (25.0-35.0) pg MCHC 29.2 L (31.0-37.0) g/dL RDW 16.1 H (11.5-15.5) % Potassium 3.2 L (3.5-5.1) mmol/L Carbon Dioxide 36 H (22-30) mmol/L Creatinine 0.47 L (0.66-1.25) mg/dL Glucose 111 H (74-99) mg/dL POC Glucose (mg/dL) 125 H (70-110) mg/dL Phosphorus 1.6 L (2.5-4.5) mg/dL Microbiology - Last 24 Hours (Table) 03/17/24 11:15 Fungal Culture - Preliminary Bronchoalviolar Lavage - Right 03/26/24 15:38 Gram Stain - Preliminary Sputum Sputum Culture - Preliminary Pseudomonas aeruginosa 03/17/24 11:15 Acid Fast Bacilli Smear - Preliminary Bronchoalviolar Lavage - Right Acid Fast Bacilli Culture - Preliminary Assessment and Plan (1) Pneumonia Status: Acute Code(s): J18.9 - PNEUMONIA, UNSPECIFIED ORGANISM SNOMED Code(s): 292643828 (2) Sepsis Status: Acute Code(s): A41.9 - SEPSIS, UNSPECIFIED ORGANISM SNOMED Code(s): 94010338 Plan: 1patient presented to hospital with sepsis in this patient who did have a low- grade fever elevated white count tachycardia meeting criteria for SIRS source likely pneumonia at this patient presenting with increasing shortness of breath cough with evidence of right-sided infiltrate, patient has been admitted to the hospital and will need to cover for resistant gram-positive as well as gram- negative 2-patient is status post bronchoscopy and lavage completed on 03/02/2024 cultures currently growing Pseudomonas that is resistant to cefepime, with repeat bronchoscopy on 03/17/2024 and grew Pseudomonas again sensitive to Zosyn 3-patient remains to be afebrile white count has been normal, status post repeat tracheostomy procedure on 03/23/2023, 4-patient has received adequate Zosyn during this hospital stay and can be either discontinued on discharged or a short 3-day course of this were discussed with the resident physician working on discharge Dictation was produced using [employer] dictation software. please excuse any grammatical, word or spelling errors. Time with Patient: Less than 30
== END 2024-03-27 18:14 | DRG 3 ==
LOC: EC 14:46 → 1SOBS 17:20 → 3SCARD 18:18 → 2SICU 02-26 03:18 → 3SCARD 03-11 03:30 → UNDODISIN 03-17 10:04 → 2SICU 03-17 10:39
PROVIDERS: ADMIT Hospitalist; ATTEND Hospitalist
PROC: 5A1955Z Respiratory Ventilation, Greater than 96 Consecutive Hours (ICD-10-PCS; 2024-02-26)
PROC: 0BH18EZ Insertion of Endotracheal Airway into Trachea, Via Natural or Artificial Opening Endoscopic (ICD-10-PCS; 2024-02-26)
PROC: 04HY32Z Insertion of Monitoring Device into Lower Artery, Percutaneous Approach (ICD-10-PCS; 2024-02-26)
PROC: 4A133B1 Monitoring of Arterial Pressure, Peripheral, Percutaneous Approach (ICD-10-PCS; 2024-02-26)
PROC: 4A133J1 Monitoring of Arterial Pulse, Peripheral, Percutaneous Approach (ICD-10-PCS; 2024-02-26)
PROC: 3E0336Z Introduction of Nutritional Substance into Peripheral Vein, Percutaneous Approach (ICD-10-PCS; 2024-02-26)
PROC: 5A09357 Assistance with Respiratory Ventilation, Less than 24 Consecutive Hours, Continuous Positive Airway Pressure (ICD-10-PCS; 2024-02-26)
PROC: 3E043XZ Introduction of Vasopressor into Central Vein, Percutaneous Approach (ICD-10-PCS; 2024-02-27)
PROC: 06HY33Z Insertion of Infusion Device into Lower Vein, Percutaneous Approach (ICD-10-PCS; 2024-02-27)
PROC: 0BH18EZ Insertion of Endotracheal Airway into Trachea, Via Natural or Artificial Opening Endoscopic (ICD-10-PCS; 2024-02-28)
PROC: 0B978ZZ Drainage of Left Main Bronchus, Via Natural or Artificial Opening Endoscopic (ICD-10-PCS; 2024-03-02)
PROC: 0B918ZZ Drainage of Trachea, Via Natural or Artificial Opening Endoscopic (ICD-10-PCS; 2024-03-02)
PROC: 0B938ZZ Drainage of Right Main Bronchus, Via Natural or Artificial Opening Endoscopic (ICD-10-PCS; 2024-03-02)
PROC: 0B9F8ZX Drainage of Right Lower Lung Lobe, Via Natural or Artificial Opening Endoscopic, Diagnostic (ICD-10-PCS; 2024-03-02)
PROC: 0B978ZZ Drainage of Left Main Bronchus, Via Natural or Artificial Opening Endoscopic (ICD-10-PCS; 2024-03-03)
PROC: 0B918ZZ Drainage of Trachea, Via Natural or Artificial Opening Endoscopic (ICD-10-PCS; 2024-03-03)
PROC: 0B938ZZ Drainage of Right Main Bronchus, Via Natural or Artificial Opening Endoscopic (ICD-10-PCS; 2024-03-03)
PROC: 0B110Z4 Bypass Trachea to Cutaneous, Open Approach (ICD-10-PCS; principal; 2024-03-05 09:45)
PROC: 06HY33Z Insertion of Infusion Device into Lower Vein, Percutaneous Approach (ICD-10-PCS; 2024-03-17)
PROC: 04HY32Z Insertion of Monitoring Device into Lower Artery, Percutaneous Approach (ICD-10-PCS; 2024-03-17)
PROC: 4A133B1 Monitoring of Arterial Pressure, Peripheral, Percutaneous Approach (ICD-10-PCS; 2024-03-17)
PROC: 4A133J1 Monitoring of Arterial Pulse, Peripheral, Percutaneous Approach (ICD-10-PCS; 2024-03-17)
PROC: 0B9H8ZZ Drainage of Lung Lingula, Via Natural or Artificial Opening Endoscopic (ICD-10-PCS; 2024-03-17)
PROC: 0B9M8ZZ Drainage of Bilateral Lungs, Via Natural or Artificial Opening Endoscopic (ICD-10-PCS; 2024-03-17)
PROC: 0BDK8ZX Extraction of Right Lung, Via Natural or Artificial Opening Endoscopic, Diagnostic (ICD-10-PCS; 2024-03-17)
PROC: 0BH18EZ Insertion of Endotracheal Airway into Trachea, Via Natural or Artificial Opening Endoscopic (ICD-10-PCS; 2024-03-17)
PROC: 0BW18FZ Revision of Tracheostomy Device in Trachea, Via Natural or Artificial Opening Endoscopic (ICD-10-PCS; 2024-03-23)
PROC: 0BP1XFZ Removal of Tracheostomy Device from Trachea, External Approach (ICD-10-PCS; 2024-03-23)
DX: A41.52 Sepsis due to Pseudomonas (principal); R65.21 Severe sepsis with septic shock; R57.0 Cardiogenic shock; J15.1 Pneumonia due to Pseudomonas; E43 Unspecified severe protein-calorie malnutrition; J96.21 Acute and chronic respiratory failure with hypoxia; J96.22 Acute and chronic respiratory failure with hypercapnia; J95.09 Other tracheostomy complication; J95.03 Malfunction of tracheostomy stoma; K63.2 Fistula of intestine; E87.3 Alkalosis; D84.81 Immunodeficiency due to conditions classified elsewhere; I69.354 Hemiplegia and hemiparesis following cerebral infarction affecting left non-dominant side; E27.40 Unspecified adrenocortical insufficiency; E87.1 Hypo-osmolality and hyponatremia; R04.2 Hemoptysis; K50.90 Crohn's disease, unspecified, without complications; R62.7 Adult failure to thrive; J98.09 Other diseases of bronchus, not elsewhere classified; E83.39 Other disorders of phosphorus metabolism; Z86.74 Personal history of sudden cardiac arrest; Z68.30 Body mass index [BMI] 30.0-30.9, adult; E66.9 Obesity, unspecified; D64.9 Anemia, unspecified; Z89.511 Acquired absence of right leg below knee; Z93.2 Ileostomy status; E83.42 Hypomagnesemia; E87.6 Hypokalemia; J40 Bronchitis, not specified as acute or chronic; R45.1 Restlessness and agitation; E86.0 Dehydration; J98.4 Other disorders of lung; Z79.01 Long term (current) use of anticoagulants; Z79.51 Long term (current) use of inhaled steroids; Z86.718 Personal history of other venous thrombosis and embolism; Z86.14 Personal history of Methicillin resistant Staphylococcus aureus infection; Z87.891 Personal history of nicotine dependence; Z86.19 Personal history of other infectious and parasitic diseases; Z87.01 Personal history of pneumonia (recurrent); Z90.49 Acquired absence of other specified parts of digestive tract; Z79.899 Other long term (current) drug therapy
CPT/HCPCS: 31624; 31645; 36415; 36600; 71045; 71046; 74230; 80048; 80053; 81001; 82330; 82533; 82542; 82805; 83036; 83605; 83735; 83880; 84100; 84132; 84145; 84443; 84478; 84484; 85025; 85027; 85610; 85730; 87040; 87070; 87077; 87102; 87116; 87186; 87205; 87206; 87496; 87498; 87502; 87529; 87634; 87635; 87636; 87798; 88108; 88305; 89050; 93005; 93306; 94002; 94003; 94640; 94660; 94667; 94668; 94760; 96365; 96366; 96375; 96376; 99291

== ENCOUNTER 2024-06-19 08:24 | Inpatient (IN) | payer MEDICARE, OTHER ==
--- NOTE | 2024-06-19 08:50 | ED ---
General Adult HPI - General Chief complaint: Chest Pain Stated complaint: Chest pain Time Seen by Provider: 06/19/24 08:32 Source: patient, RN notes reviewed, old records reviewed Mode of arrival: ambulatory Limitations: no limitations - History of Present Illness Initial comments: Patient is a 49-year-old male with multiple medical problems presenting to the emergency department with chest discomfort. Incident occurred today during suctioning. Chest discomfort lasted around 20 minutes and has now resolved. Patient did feel somewhat short of breath as well. Patient has had some similar symptoms previously. Patient does complain of left hip pain. Patient has chronic left hip pain and has had previous evaluation and x-rays for this. - Related Data Home Medications Medication Instructions Recorded Confirmed Pantoprazole [Protonix] 40 mg PO BID 07/07/22 06/19/24 Albuterol Nebulized [Ventolin 2.5 mg INHALATION RT-Q6H PRN 06/19/24 06/19/24 Nebulized] Cholestyramine (with Sugar) 4 gm PO BID 06/19/24 06/19/24 [Cholestyramine Packet] Enoxaparin [Lovenox] 90 mg SQ Q12H 06/19/24 06/19/24 Folic Acid 1 mg PO DAILY 06/19/24 06/19/24 Loperamide HCl [Imodium A-D] 4 mg PO TID 06/19/24 06/19/24 Thiamine [Vitamin B-1] 100 mg PO DAILY 06/19/24 06/19/24 Allergies Allergy/AdvReac Type Severity Reaction Status Date / Time No Known Allergies Allergy Verified 06/19/24 09:26 Review of Systems ROS Statement: Those systems with pertinent positive or pertinent negative responses have been documented in the HPI. ROS Other: All systems not noted in ROS Statement are negative. Constitutional: Denies: fever Eyes: Denies: eye pain Respiratory: Reports: as per HPI, dyspnea Cardiovascular: Reports: as per HPI, chest pain Endocrine: Denies: fatigue Gastrointestinal: Denies: abdominal pain Musculoskeletal: Reports: as per HPI Past Medical History Past Medical History: CVA/TIA, Deep Vein Thrombosis (DVT) Additional Past Medical History / Comment(s): Progressing left upper thigh pain and swelling and left leg weakness. 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 Crohns. Ostomy Bag placed in 09/2021. History of Any Multi-Drug Resistant Organisms: MRSA, Other MDRO Date of last positivie culture/infection: 03/26/24-Other MDRO; 12/14/23-MRSA MDRO Source:: Other MDRO - sputum, BAL; MRSA- nasal Past Surgical History: Cholecystectomy, Orthopedic Surgery Additional Past Surgical History / Comment(s): Arm surgery, right leg below knee amputation, ostomy (2021) Past Anesthesia/Blood Transfusion Reactions: No Reported Reaction Additional Past Anesthesia/Blood Transfusion Reaction / Comment(s): recalled from previous admission Past Psychological History: No Psychological Hx Reported Smoking Status: Former smoker Past Alcohol Use History: None Reported Past Drug Use History: None Reported - Past Family History Father Additional Family Medical History / Comment(s): DAD IN HIS TWENTIES - CAUSE UNKNOWN. Mother Family Medical History: Diabetes Mellitus Brother(s) Family Medical History: Cancer Additional Family Medical History / Comment(s): Kidney cancer as a baby. General Exam Limitations: no limitations General appearance: alert, in no apparent distress Head exam: Present: normocephalic Eye exam: Present: normal appearance Neck exam: Present: normal inspection Respiratory exam: Present: rales Cardiovascular Exam: Present: regular rate, normal rhythm GI/Abdominal exam: Present: soft, other (Large ostomy bag and ostomy site). Absent: tenderness Extremities exam: Present: other (Right BKA). Absent: calf tenderness Neurological exam: Present: alert Psychiatric exam: Present: normal affect, normal mood Skin exam: Present: normal color Course Vital Signs 06/19/24 06/19/24 06/19/24 08:25 08:49 10:31 Temperature 98.4 F Pulse Rate 86 94 Respiratory 18 17 Rate Blood Pressure 115/58 111/69 O2 Sat by Pulse 98 96 Oximetry Fraction of 40 Inspired Oxygen (FIO2) EKG Findings - EKG Results: EKG: interpreted by ERMD, sinus rhythm, normal axis, normal QRS, normal ST/T Medical Decision Making - Medical Decision Making Was pt. sent in by a medical professional or institution (, PA, GLASS BLOWING INSTRUCTOR, urgent care, hospital, or skilled nursing...) When possible be specific @ -No Did you speak to anyone other than the patient for history (EMS, parent, family, police, friend...)? What history was obtained from this source @ -No Did you review nursing and triage notes (agree or disagree)? Why? @ -I reviewed and agree with nursing and triage notes Were old charts reviewed (outside hosp., previous admission, EMS record, old EKG, old radiological studies, urgent care reports/EKG's, skilled nursing records)? Report findings @ -No old charts were reviewed Differential Diagnosis (chest pain, altered mental status, abdominal pain women, abdominal pain men, vaginal bleeding, weakness, fever, dyspnea, syncope, headache, dizziness, GI bleed, back pain, seizure, CVA, palpatations, mental health, musculoskeletal)? @ -Differential Chest Pain: Stable Angina, Unstable Angina, STEMI, NSTEMI Aortic Dissection, Pneumothorax, Musculoskeletal, Esophageal Spasm GERD, Cholecystitis, Pancreatitis, Zoster, this is not meant to be an all-inclusive list. EKG interpreted by me (3pts min.). @ -As above X-rays interpreted by me (1pt min.). @ -Chest x-ray with poor inspiration. Nonspecific findings CT interpreted by me (1pt min.). @ -None done U/S interpreted by me (1pt. min.). @ -None done What testing was considered but not performed or refused? (CT, X-rays, U/S, labs)? Why? @ -None What meds were considered but not given or refused? Why? @ -None Did you discuss the management of the patient with other professionals (professionals i.e. , PA, GLASS BLOWING INSTRUCTOR, lab, RT, psych nurse, social media marketer, casing sewer, teacher, patient transport officer, social work case manager)? Give summary @ -Case was discussed with Dr. Edith cardenas who will admit covering Dr. Ivey Was smoking cessation discussed for >3mins.? @ -No Was critical care preformed (if so, how long)? @ -No Were there social determinants of health that impacted care today? How? (Homelessness, low income, unemployed, alcoholism, drug addiction, transportation, low edu. Level, literacy, decrease access to med. care, care home, rehab)? @ -No Was there de-escalation of care discussed even if they declined (Discuss DNR or withdrawal of care, Hospice)? DNR status @ -No What co-morbidities impacted this encounter? (DM, HTN, Smoking, COPD, CAD, Cancer, CVA, ARF, Chemo, Hep., AIDS, mental health diagnosis, sleep apnea, morbid obesity)? @ -CVA, diabetes, previous amputation. Trach patient Was patient admitted / discharged? Hospital course, mention meds given and route, prescriptions, significant lab abnormalities, going to OR and other pertinent info. @ -Patient presents with chest discomfort with multiple comorbidities. Initial evaluation unremarkable. Patient will be admitted with cardiac consult. Admission orders written. Patient reevaluated. Patient and family updated. Undiagnosed new problem with uncertain prognosis? @ -No Drug Therapy requiring intensive monitoring for toxicity (Heparin, Nitro, Insulin, Cardizem)? @ -No Were any procedures done? @ -No Diagnosis/symptom? @ -Chest pain Acute, or Chronic, or Acute on Chronic? @ -Acute Uncomplicated (without systemic symptoms) or Complicated (systemic symptoms)? @ -Default Side effects of treatment? @ -No Exacerbation, Progression, or Severe Exacerbation? @ -No Poses a threat to life or bodily function? How? (Chest pain, [place], [place], pneumonia, PE, COPD, DKA, ARF, appy, cholecystitis, CVA, Diverticulitis, Homicidal, Suicidal, threat to staff... and all critical care pts) @ -Threat to cardiac function - Lab Data Result diagrams: 06/19/24 08:47 06/19/24 08:47 Lab Results 06/19/24 06/19/24 06/19/24 Range/Units 08:47 08:47 08:47 WBC 5.4 (3.8-10.6) k/uL RBC 3.30 L (4.30-5.90) m/uL Hgb 8.3 L (13.0-17.5) gm/dL Hct 28.1 L (39.0-53.0) % MCV 85.2 (80.0-100.0) fL MCH 25.1 (25.0-35.0) pg MCHC 29.5 L (31.0-37.0) g/dL RDW 19.2 H (11.5-15.5) % Plt Count 181 (150-450) k/uL MPV 10.6 Neutrophils % 59 % Lymphocytes % 30 % Monocytes % 5 % Eosinophils % 2 % Basophils % 1 % Neutrophils # 3.2 (1.3-7.7) k/uL Lymphocytes # 1.6 (1.0-4.8) k/uL Monocytes # 0.3 (0-1.0) k/uL Eosinophils # 0.1 (0-0.7) k/uL Basophils # 0.0 (0-0.2) k/uL Hypochromasia Marked Poikilocytosis Moderate Anisocytosis Slight PT 11.5 (10.0-12.5) sec INR 1.0 (<1.2) APTT 22.1 (22.0-30.0) sec Sodium 139 (137-145) mmol/L Potassium 4.8 (3.5-5.1) mmol/L Chloride 101 (98-107) mmol/L Carbon Dioxide 33 H (22-30) mmol/L Anion Gap 5 mmol/L BUN 23 H (9-20) mg/dL Creatinine 0.35 L (0.66-1.25) mg/dL Est GFR (CKD-EPI)AfAm >90 (>60 ml/min/1.73 sqM) Est GFR (CKD-EPI)NonAf >90 (>60 ml/min/1.73 sqM) Glucose 101 H (74-99) mg/dL Calcium 9.0 (8.4-10.2) mg/dL Magnesium 2.0 (1.6-2.3) mg/dL Total Bilirubin 1.2 (0.2-1.3) mg/dL AST 40 (17-59) U/L ALT 55 H (4-49) U/L Alkaline Phosphatase 116 (38-126) U/L Troponin I (0.000-0.034) ng/mL Total Protein 7.4 (6.3-8.2) g/dL Albumin 3.4 L (3.5-5.0) g/dL /07/10 Range/Units 08:47 WBC (3.8-10.6) k/uL RBC (4.30-5.90) m/uL Hgb (13.0-17.5) gm/dL Hct (39.0-53.0) % MCV (80.0-100.0) fL MCH (25.0-35.0) pg MCHC (31.0-37.0) g/dL RDW (11.5-15.5) % Plt Count (150-450) k/uL MPV Neutrophils % % Lymphocytes % % Monocytes % % Eosinophils % % Basophils % % Neutrophils # (1.3-7.7) k/uL Lymphocytes # (1.0-4.8) k/uL Monocytes # (0-1.0) k/uL Eosinophils # (0-0.7) k/uL Basophils # (0-0.2) k/uL Hypochromasia Poikilocytosis Anisocytosis PT (10.0-12.5) sec INR (<1.2) APTT (22.0-30.0) sec Sodium (137-145) mmol/L Potassium (3.5-5.1) mmol/L Chloride (98-107) mmol/L Carbon Dioxide (22-30) mmol/L Anion Gap mmol/L BUN (9-20) mg/dL Creatinine (0.66-1.25) mg/dL Est GFR (CKD-EPI)AfAm (>60 ml/min/1.73 sqM) Est GFR (CKD-EPI)NonAf (>60 ml/min/1.73 sqM) Glucose (74-99) mg/dL Calcium (8.4-10.2) mg/dL Magnesium (1.6-2.3) mg/dL Total Bilirubin (0.2-1.3) mg/dL AST (17-59) U/L ALT (4-49) U/L Alkaline Phosphatase (38-126) U/L Troponin I <0.012 (0.000-0.034) ng/mL Total Protein (6.3-8.2) g/dL Albumin (3.5-5.0) g/dL Disposition Clinical Impression: Chest pain Disposition: ADMITTED IP TO THIS HOSP Is patient prescribed a controlled substance at d/c from ED?: No Referrals: Chong Ivey DO [Primary Care Provider] - 1-2 days Time of Disposition: 12:32
[2024-06-19] MEDS: ASPIRIN 81 MG PO STA (09:05)
[2024-06-19] MEDS: MORPHINE SULFATE 4 MG/ML SYRINGE IV STA (09:05)
--- NOTE | 2024-06-19 09:34 | XR ---
EXAMINATION TYPE: XR chest 1V portable DATE OF EXAM: 06/19/2024 COMPARISON: Chest x-ray March 27, 2024 CLINICAL INDICATION: Male, 49 years old with history of chest pain; TECHNIQUE: Single frontal view of the chest is obtained. FINDINGS: Stable tracheostomy tube. Stable left central venous catheter. Persistent low lung volumes with bibasilar opacities. Resolved right-sided pleural effusion. Cardiac silhouette size is stable and mildly enlarged. Osseous structures are intact. Cholecystectomy clips a re noted. Surgical clips in the lower right neck are redemonstrated. IMPRESSION: Persistent low lung volumes and cardiomegaly. Persistent left greater than right bibasil ar acute infiltrate and/or atelectasis. [facility], , 06/19/2024 9:32 AM
[2024-06-19 09:48] LABS: Anisocytosis Slight; Basophils % (A) 1 %; Eosinophils # (A) 0.1 k/uL (0-0.7); Eosinophils % (A) 2 %; HCT 28.1 % (39.0-53.0); HGB 8.3 gm/dL (13.0-17.5); Hypochromasia Marked; Lymphocytes # (A) 1.6 k/uL (1.0-4.8); Lymphocytes % (A) 30 %; MCH 25.1 pg (25.0-35.0); MCHC 29.5 g/dL (31.0-37.0); MCV 85.2 fL (80.0-100.0); Mean Platelet Volume 10.6; Monocytes # (A) 0.3 k/uL (0-1.0); Monocytes % (A) 5 %; Neutrophils # (A) 3.2 k/uL (1.3-7.7); Neutrophils % (A) 59 %; Platelet Count 181 k/uL (150-450); Poikilocytosis Moderate; RDW 19.2 % (11.5-15.5); WBC 5.4 k/uL (3.8-10.6)
[2024-06-19 09:59] LABS: ALT 55 U/L (4-49); AST 40 U/L (17-59); African American GFR (CKD) >90 (>60 ml/min/1.73 sqM); Albumin 3.4 g/dL (3.5-5.0); Alkaline Phosphatase 116 U/L (38-126); Anion Gap 5 mmol/L; Blood Urea Nitrogen 23 mg/dL (9-20); Carbon Dioxide 33 mmol/L (22-30); Chloride 101 mmol/L (98-107); Glucose 101 mg/dL (74-99); Non-African American GFR(CKD) >90 (>60 ml/min/1.73 sqM); Potassium 4.8 mmol/L (3.5-5.1); Sodium 139 mmol/L (137-145); Total Bilirubin 1.2 mg/dL (0.2-1.3); Total Protein 7.4 g/dL (6.3-8.2)
[2024-06-19 10:06] LABS: Partial Thromboplastin Time 22.1 sec (22.0-30.0); Prothrombin Time 11.5 sec (10.0-12.5)
[2024-06-19] MEDS ORDERED: NITROGLYCERIN SL TABS 0.4 MG TAB SUBLINGUAL PRN (12:33)
[2024-06-19] MEDS: MORPHINE SULFATE 2 MG/ML SYRINGE IVP STA (13:10)
[2024-06-19] MEDS: ENOXAPARIN 100 MG/ML SYRINGE SQ SCH (13:42)
[2024-06-19] MEDS: ALBUTEROL NEBULIZED 2.5 MG/3 ML INHALATION PRN (16:19)
[2024-06-19] MEDS: BUDESONIDE 1 MG/2 ML NEBU INHALATION SCH (17:02)
[2024-06-19] MEDS: FORMOTEROL FUMARATE 20 MCG/2 ML NEBU INHALATION SCH (17:03)
[2024-06-19] MEDS: PIPERACILLIN-TAZOBACTAM 3.375 GM in SODIUM CHLORIDE 0.9% 100 ML IVPB SCH (18:31)
[2024-06-19] MEDS: HYDROmorphone 0.5 MG/0.5 ML SYRINGE IVP PRN (18:31)
[2024-06-19] MEDS: SODIUM CHLORIDE 0.9% 1,000 ML IV SCH (18:31)
[2024-06-19] MEDS: LOPERAMIDE 2 MG CAP PO SCH (18:31)
[2024-06-19] MEDS: PANTOPRAZOLE 40 MG TABLET PO SCH (20:13)
[2024-06-19] MEDS: IPRATROPIUM-ALBUTEROL 3 ML NEB INHALATION SCH (21:11)
--- NOTE | 2024-06-19 21:34 | HP ---
HISTORY AND PHYSICAL CHIEF COMPLAINT: Chest pain and cough. HISTORY OF PRESENT ILLNESS: This is a 49-year-old gentleman with a past medical history of multiple medical problems including respiratory failure. He is on home TPN as well as tracheostomy. The patient had Pseudomonas pneumonia in February. Currently, the patient had cough and chest pain. The patient came to [facility], admitted for further evaluation and treatment. The chest x-ray which I evaluated showed possible basilar infiltrate with atelectasis. The patient will be closely monitored at this time. The blood pressure is also slightly low at this time. There is no history of any fever, rigors, or chills at this time. PAST MEDICAL HISTORY: Reviewed and includes history of CVA, TIA, history of DVT, history of MRSA, history of MDRO. Rest of the history and rest of the chart is also reviewed. HOME MEDICATIONS: Reviewed and include Imodium. Dose and rest of medications reviewed. ALLERGIES: None. FAMILY HISTORY: History of diabetes mellitus. SOCIAL HISTORY: Previous smoker. REVIEW OF SYSTEMS: Fourteen-point review of systems is negative except as mentioned earlier. PHYSICAL EXAMINATION: VITAL SIGNS: Pulse 97, blood pressure 128/74, respirations 19. HEENT: Conjunctivae normal. NECK: No JVD. CARDIOVASCULAR: S1, S2. RESPIRATIONS: Breath sounds diminished at the bases. Few scattered rhonchi. No crackles. ABDOMEN: Soft. NERVOUS SYSTEM: Nonfocal. SKIN: No ulcer, rash, bleeding. JOINTS: No active deforming arthropathy. LABORATORY DATA: Noted. ASSESSMENT: 1. Chest pain with possible unstable angina. 2. Bilateral pneumonia, possibly aspiration versus gram-negative. 3. Anemia. 4. History of recent Pseudomonas pneumonia. 5. Tracheostomy. 6. On home TPN. 7. History of tracheal stenosis. 8. History of deep venous thrombosis. 9. History of Crohn's disease. 10.Profound immunosuppression. RECOMMENDATIONS AND DISCUSSION: Recommended to continue with current management, continue with symptomatic treatment. I would recommend broad-spectrum IV antibiotics. Infectious and Pulmonary consultations. Continue with empiric antibiotics. Closely follow with multiple consultants. Prognosis is guarded because of the multiple complex medical issues and further recommendations to follow. See orders for further details. Discussed with the family at the bedside. MMODL / IJN: [id number] /
[2024-06-20] MEDS: CHOLESTYRAMINE (WITH SUGAR) 4 GM PACKET PO SCH (00:04)
[2024-06-20 04:53] LABS: Influenza A Not Detected (Not Detectd); Influenza B Not Detected (Not Detectd); RSV Not Detected (Not Detectd)
[2024-06-20] MEDS: ASPIRIN 325 MG TAB PO SCH (09:26)
[2024-06-20] MEDS: THIAMINE 100 MG TAB PO SCH (09:26)
[2024-06-20] MEDS: FOLIC ACID 1 MG TAB PO SCH (09:27)
[2024-06-20 11:35] LABS: Anisocytosis Slight; Basophils % (A) 1 %; Eosinophils # (A) 0.1 k/uL (0-0.7); Eosinophils % (A) 3 %; HCT 26.5 % (39.0-53.0); HGB 7.7 gm/dL (13.0-17.5); Hypochromasia Marked; Lymphocytes # (A) 1.1 k/uL (1.0-4.8); Lymphocytes % (A) 24 %; MCH 24.8 pg (25.0-35.0); MCHC 28.8 g/dL (31.0-37.0); Mean Platelet Volume 10.8; Monocytes # (A) 0.3 k/uL (0-1.0); Monocytes % (A) 7 %; Neutrophils % (A) 64 %; Platelet Count 161 k/uL (150-450); Poikilocytosis Moderate; RBC 3.09 m/uL (4.30-5.90); RDW 18.9 % (11.5-15.5); WBC 4.7 k/uL (3.8-10.6)
[2024-06-20 11:38] LABS: African American GFR (CKD) >90 (>60 ml/min/1.73 sqM); Anion Gap 4 mmol/L; Blood Urea Nitrogen 14 mg/dL (9-20); Calcium 8.7 mg/dL (8.4-10.2); Carbon Dioxide 32 mmol/L (22-30); Chloride 99 mmol/L (98-107); Glucose 94 mg/dL (74-99); Non-African American GFR(CKD) >90 (>60 ml/min/1.73 sqM); Potassium 4.1 mmol/L (3.5-5.1); Sodium 135 mmol/L (137-145)
[2024-06-20] MEDS: ALPRAZolam 0.5 MG TAB PO PRN (12:07)
[2024-06-20 12:36] LABS: Magnesium 1.7 mg/dL (1.6-2.3); Phosphorus 3.1 mg/dL (2.5-4.5)
--- NOTE | 2024-06-20 14:39 | P.CNPUL ---
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 Patient is obese and he has developed chronic generalized weakness, respiratory insufficiency with recurrent pneumonias requiring previous intubation and mechanical ventilation. The patient has also been treated for episodes of pneumonias in the past including pseudomonal pneumonia earlier this year. He does have also an area of tracheal stenosis related to previous tracheal manipulation and tracheostomy tube insertion. Currently he has a permanent tracheostomy tube in place to secure his airways. 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 Following his most recent hospitalization in March 2024, the patient was discharged to [facility] and following that he was discharged home where he has been taking care of by family members. Since then, the patient has done well. The patient came into the emergency department as he has stated that he has been feeling more short of breath and his dyspnea is occurring in episodes. Nevertheless, he has remained hemodynamically stable. He remains on 35 to 40% trach collar without development of any significant respiratory secretions. Blood work has been essentially stable. The white cell count at time of admission was at 5.4 with a hemoglobin of 8.3 and a platelet count of 181. Sodium levels at 139, bicarb is at 33, BUN 23 with a creatinine of 0.35. Troponins were negative. LFTs are essentially within normal limits. Total protein was at 7.4 with an albumin of 3.5. The viral screen was negative in the emergency department. Also, the patient was given a chest x-ray that showed smaller lung volumes and poor respiratory effort. There is some cardiomegaly. No acute airspace disease or consolidation. His EKG showed a normal sinus mechanism. Based on that, the patient was hospitalized in the pulmonary co nsultation was requested. He was started on empiric antibiotic coverage with IV Rocephin. Noted the patient is bedridden. He has chronic muscle atrophy and contractures in his lower extremities. He remains on therapeutic dose of Lovenox 90 mg subcu every 12 hours. Review of Systems All systems: negative Constitutional: Reports weakness, Reports weight gain Eyes: denies as per HPI, denies blurred vision, denies bulging eye, denies decreased vision, denies diplopia, denies discharge, denies dry eye, denies irritation, denies itching, denies pain, denies photophobia, denies loss of peripheral vision, denies loss of vision, denies tunnel vision/blind spots Ears: deny: decreased hearing, ear discharge, earache, tinnitus Breasts: absent: as per HPI, gynecomastia Cardiovascular: Reports as per HPI Respiratory: Reports as per HPI (Previous episodes of respiratory failure, previous tracheostomy tube insertion), Reports dyspnea Gastrointestinal: Reports as per HPI (Has an ileostomy with multiple bowel surgeries, Crohn's disease) Genitourinary: Reports as per HPI Musculoskeletal: Reports as per HPI, Reports gait dysfunction, Reports limitation of motion, Reports low back pain, Reports muscle weakness Musculoskeletal: bilateral: ankle swelling, absent: ankle pain, ankle stiffness Integumentary: Reports as per HPI Neurological: Reports as per HPI (Previous CVA) Psychiatric: Reports as per HPI, Reports anxiety Endocrine: Reports fatigue Hematologic/Lymphatic: Reports as per HPI Allergic/Immunologic: Reports as per HPI Past Medical History Past Medical History: CVA/TIA, Deep Vein Thrombosis (DVT), GI Bleed (Previous history of Crohn disease, diabetic ileostomy, colectomy and previous episode of GI bleed), Respiratory Disorder Additional Past Medical History / Comment(s): History of chronic disease, multiple abdominal surgeries with colectomy end ileostomy, recurrent episodes of respiratory failure/pneumonia. Permanent tracheostomy tube in place. Hx CVA in 2012, DVT in right arm. Crohns. Ileostomy bag placed in 09/2021. History of Any Multi-Drug Resistant Organisms: MRSA, Other MDRO Date of last positivie culture/infection: 03/26/24-Other MDRO; 12/14/23-MRSA MDRO Source:: Other MDRO - sputum, BAL; MRSA- nasal Past Surgical History: Cholecystectomy, Orthopedic Surgery Additional Past Surgical History / Comment(s): Arm surgery, right leg below knee amputation, ostomy (2021) Past Anesthesia/Blood Transfusion Reactions: No Reported Reaction Additional Past Anesthesia/Blood Transfusion Reaction / Comment(s): recalled from previous admission Past Psychological History: No Psychological Hx Reported Additional Psychological History / Comment(s): recalled from previous admission Smoking Status: Former smoker Past Alcohol Use History: None Reported Additional Past Alcohol Use History / Comment(s): QUIT SMOKING IN 2017, STARTED SMOKING AT AGE 16, 1PPD. Past Drug Use History: None Reported Additional Drug Use History / Comment(s): recalled from previous admission - Past Family History Father Additional Family Medical History / Comment(s): DAD IN HIS TWENTIES - CAUSE UNKNOWN. Mother Family Medical History: Diabetes Mellitus Brother(s) Family Medical History: Cancer Additional Family Medical History / Comment(s): Kidney cancer as a baby. Medications and Allergies Home Medications Medication Instructions Recorded Confirmed Type Pantoprazole [Protonix] 40 mg PO BID 07/07/22 06/19/24 History Albuterol Nebulized [Ventolin 2.5 mg INHALATION RT-Q6H PRN 06/19/24 06/19/24 History Nebulized] Cholestyramine (with Sugar) 4 gm PO BID 06/19/24 06/19/24 History [Cholestyramine Packet] Enoxaparin [Lovenox] 90 mg SQ Q12H 06/19/24 06/19/24 History Folic Acid 1 mg PO DAILY 06/19/24 06/19/24 History Loperamide HCl [Imodium A-D] 4 mg PO TID 06/19/24 06/19/24 History Thiamine [Vitamin B-1] 100 mg PO DAILY 06/19/24 06/19/24 History Allergies Allergy/AdvReac Type Severity Reaction Status Date / Time piperacillin [From Zosyn] AdvReac Rash/Hives Verified 06/20/24 02:44 tazobactam [From Zosyn] AdvReac Rash/Hives Verified 06/20/24 02:44 Physical Exam Vitals: Vital Signs Temp Pulse Pulse Resp BP BP Pulse Ox 06/20/24 09:13 99 20 122/78 100 06/20/24 08:44 85 06/20/24 08:37 84 06/20/24 08:36 84 06/20/24 08:27 80 06/20/24 04:03 95 06/20/24 02:55 98 18 149/73 100 06/19/24 21:35 88 06/19/24 21:23 90 06/19/24 21:22 90 06/19/24 21:12 89 06/19/24 20:10 98.6 F 100 18 125/69 96 06/19/24 17:43 98.6 F 89 124/69 100 06/19/24 17:30 89 20 06/19/24 16:32 96 06/19/24 16:19 96 06/19/24 13:00 97 19 128/74 98 FiO2 06/20/24 09:13 35 06/20/24 08:44 06/20/24 08:37 06/20/24 08:36 06/20/24 08:27 40 06/20/24 04:03 40 06/20/24 02:55 35 06/19/24 21:35 06/19/24 21:23 06/19/24 21:22 40 06/19/24 21:12 06/19/24 20:10 35 06/19/24 17:43 35 06/19/24 17:30 06/19/24 16:32 06/19/24 16:19 06/19/24 13:00 Intake and Output 06/19/24 06/20/24 06/20/24 22:59 06:59 14:59 Intake Total 240 Output Total 1550 1100 Balance -1310 -1100 Intake: Oral 240 Output: Urine 550 500 Stool 1000 600 Other: Voiding Method Indwelling Catheter Indwelling Catheter Weight 108.862 kg 117.5 kg GENERAL: A 48-year-old male patient, [facility] tracheostomy tube in place. The patient is on a2 35 % trach collar. He is morbidly obese. Head exam was generally normal. There was no scleral icterus or corneal arcus. Mucous membranes were moist. HEENT: No scleral icterus. No conjunctival pallor. Normocephalic, atraumatic. Tracheostomy tube is in a good location. The patient has a subclavian left triple-lumen catheter in place. CARDIOVASCULAR: S1 and S2 present. No murmurs, rubs, or gallops. PULMONARY: Diminished breath sounds were bilaterally. No wheezes rhonchi or crackles, scattered rhonchi the patient's breath sounds are quite diminished bilaterally. ABDOMEN: Soft, nontender, nondistended, normoactive bowel sounds. No palpable organomegaly. Functioning ileostomy. 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 EXTREMITIES: No cyanosis, clubbing, or pedal edema. Previous BKA on the right. NEUROLOGICAL: Profound weakness in all 4 extremities, weak cough, extensive muscle atrophy in all 4 extremities. awake and follows simple commands and communicates. SKIN: No rashes. No open wounds. Results - Laboratory Findings CBC and BMP: 06/20/24 10:58 06/20/24 10:58 PT/INR, D-dimer PT 11.5 sec (10.0-12.5) 06/19/24 08:47 INR 1.0 (<1.2) 06/19/24 08:47 Abnormal lab findings: Abnormal Labs 06/19/24 06/19/24 08:47 08:47 RBC 3.30 L Hgb 8.3 L Hct 28.1 L MCHC 29.5 L RDW 19.2 H Carbon Dioxide 33 H BUN 23 H Creatinine 0.35 L Glucose 101 H ALT 55 H Albumin 3.4 L - Diagnostic Findings Chest x-ray: image reviewed Assessment and Plan Plan: Acute on chronic dyspnea. The patient reports episodes of shortness of breath. Despite this symptoms of increased shortness of breath, there is no clear indication for a pneumonia, and the chest x-ray shows smaller lung volumes without any airspace disease or consolidation. Oxygenation remained stable and the patient remains on 35% trach collar. Rule out evolving pneumonia. Rule out anxiety. Noted the patient has been on long-term anticoagulation with Lovenox 90 mg subcu every 12 hours. Possibility of pulm embolism is felt to be less likely. Chronic hypoxic/hypercapnic respiratory failure with episodes of pneumonia requiring intubation mechanical ventilation. The patient has a permanent tracheostomy tube in place. He has chronic respiratory insufficiency, important pulmonary mechanics related to his chronic debility and multiple abdominal surgeries and morbid obesity. He has poor ability to perform pulmonary toileting, weak cough, and has had recurrent pneumonias with gram-negative and MRSA. Most recent sputum sample from 02/26/2024 is positive for Pseudomonas aeruginosa and he was treated accordingly. No significant respiratory secretions for now. 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 Previous history of recurrent ventilator dependent respiratory failure, secondary to pneumonia and mucous plugging. The patient has undergone previous bronchoscopies and cultures from bronchoscopy on 12/31/2023 was positive for MRSA and subsequent bronchoscopy on 01/03/2024 was positive for Klebsiella pneumoniae and Bella glabrata. Most recent sputum analysis from 02/26/2024 and 03/17/2024 was positive for Pseudomonas aeruginosa and the patient was treated successfully. Previous episodes of sepsis secondary to pneumonia Crohn's disease, with previous complication of bowel perforation s/p colectomy and diverting ileostomy. The patient also has had previous history of abdominal wall bleeding there is currently inactive and stable. The patient has a high output ileostomy TPN for nutritional support Tracheobronchomalacia History of DVT, on therapeutic dose of Lovenox CVA/TIA, with residual left-sided weakness Right BKA History of asystole/cardiac arrest in 2021 Plan: Keep the patient on 35% trach collar and monitor oxygenation Obtain sputum Gram stain and culture Hemodynamically stable Labs are within normal limits Chest x-ray is not showing any acute abnormalities Consider the possibility of anxiety and the patient will be given Xanax accordingly Monitor input output TPN for nutritional support Obtain blood cultures Obtain urine cultures Check procalcitonin level Resume home medications Will continue to follow Time with Patient: Greater than 30
[2024-06-20] MEDS: FAT EMULSION 20% 250 ML IV SCH (15:44)
[2024-06-20] MEDS: MVI, ADULT NO.4 WITH VIT K 10 ML, TRACE (CONC-1ML/DOSE) 1 ML in AMINO ACID 5%-D20W+LYTE... IV ONE (15:44)
--- NOTE | 2024-06-21 00:14 | PN ---
PROGRESS NOTE DATE OF SERVICE: 06/20/2024 SUBJECTIVE: This is a 49-year-old gentleman, admitted with chest pain and cough and possible acute bilateral pneumonia, who is being closely monitored. No chest pain. No palpitations. The patient does have some allergy to Zosyn. PAST MEDICAL HISTORY: Reviewed. REVIEW OF SYSTEMS: Fourteen-point review of systems negative except as mentioned earlier. CURRENT MEDICATIONS: Reviewed. PHYSICAL EXAMINATION: VITAL SIGNS: Pulse is 100, blood pressure 114/79, respirations 20. CHEST: A few scattered rhonchi. CARDIOVASCULAR: S1, S2. ABDOMEN: Soft. NERVOUS SYSTEM: Nonfocal. LABORATORY DATA: Hemoglobin 7.7. Rest of the labs are noted. ASSESSMENT: 1. Chest pain with possible unstable angina. 2. Bilateral pneumonia, possibly aspiration versus gram-negative. 3. Anemia. 4. History of recent Pseudomonas pneumonia. 5. Tracheostomy. 6. On home TPN. 7. History of tracheal stenosis. 8. History of deep venous thrombosis. 9. History of Crohn's disease and profound immunosuppression. RECOMMENDATIONS: Recommended to continue with current management, continue with symptomatic treatment. Otherwise, repeat labs. Continue with empiric antibiotics. Obtain the cultures including sputum culture otherwise. Also recommend Infectious Disease evaluation for possible sepsis present on admission. Further recommendations to follow. MMODL / IJN: [id number] /
[2024-06-21 04:27] LABS: ALT 90 U/L (4-49); AST 56 U/L (17-59); African American GFR (CKD) >90 (>60 ml/min/1.73 sqM); Albumin 3.1 g/dL (3.5-5.0); Albumin/Globulin Ratio 0.8; Alkaline Phosphatase 129 U/L (38-126); Anion Gap 5 mmol/L; Blood Urea Nitrogen 12 mg/dL (9-20); Carbon Dioxide 32 mmol/L (22-30); Chloride 98 mmol/L (98-107); Glucose 112 mg/dL (74-99); Magnesium 1.8 mg/dL (1.6-2.3); Non-African American GFR(CKD) >90 (>60 ml/min/1.73 sqM); Phosphorus 3.7 mg/dL (2.5-4.5); Potassium 4.1 mmol/L (3.5-5.1); Sodium 135 mmol/L (137-145); Total Bilirubin 0.6 mg/dL (0.2-1.3); Total Protein 7.1 g/dL (6.3-8.2)
[2024-06-21 04:47] LABS: Anisocytosis Slight; Basophils % (A) 1 %; Eosinophils # (A) 0.2 k/uL (0-0.7); Eosinophils % (A) 3 %; HCT 28.8 % (39.0-53.0); HGB 8.5 gm/dL (13.0-17.5); Hypochromasia Marked; Lymphocytes # (A) 1.6 k/uL (1.0-4.8); Lymphocytes % (A) 24 %; MCH 25.7 pg (25.0-35.0); MCHC 29.6 g/dL (31.0-37.0); MCV 86.6 fL (80.0-100.0); Mean Platelet Volume 11.7; Monocytes # (A) 0.4 k/uL (0-1.0); Monocytes % (A) 6 %; Neutrophils # (A) 4.3 k/uL (1.3-7.7); Neutrophils % (A) 65 %; Platelet Count 182 k/uL (150-450); Poikilocytosis Moderate; RBC 3.32 m/uL (4.30-5.90); WBC 6.7 k/uL (3.8-10.6)
--- NOTE | 2024-06-21 08:25 | P.CONS ---
History of Present Illness - Reason for Consult Consult date: 06/20/24 Pneumonia Requesting physician: Chepe Garrett - Chief Complaint Chest pain x 1 day - History of Present Illness Patient is a 49-year-old male with a past medical history significant for chron's disease in this patient who did have multiple surgeries and complication as far as abdominal surgeries did have history of recurrent pneumonia vent dependent respiratory failure currently on a trach collar CVA TIA patient has been brought into the hospital concerning for chest pain apparently started while the patient was being suctioned through the trach chest discomfort lasted for about 20 minutes and subsequently resolved patient complaining of some shortness of breath for the patient has been brought into the ER for further evaluation patient denies having any worsening cough or sputum production still have some nausea but no vomiting no worsening abdominal pain or output in his ostomy on presentation to the hospital the patient was afebrile and no fever have recorded subsequently patient was nontachycardic or hypotensive and is currently on a 35% FiO2 patient did have a white count of 5.4 creatinine 0.35 BUN was mildly elevated liver enzymes mildly elevated patient tested negative for influenza RSV and COVID did have a chest x-ray persistent low lung volumes and cardiomegaly persistent left greater than the right bibasilar acute infiltrate or atelectasis patient was started on Rocephin and Zithromax infectious he was consulted concerning for pneumonia Review of Systems Positive point and negatives has been mentioned in the HPI, complete review of systems was performed and all other systems are negative Past Medical History Past Medical History: CVA/TIA, Deep Vein Thrombosis (DVT) Additional Past Medical History / Comment(s): Progressing left upper thigh pain and swelling and left leg weakness. 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 Crohns. Ostomy Bag placed in 09/2021. History of Any Multi-Drug Resistant Organisms: MRSA, Other MDRO Year Discovered:: 03/26/24-Other MDRO; 12/14/23-MRSA MDRO Source:: Other MDRO - sputum, BAL; MRSA- nasal Past Surgical History: Cholecystectomy, Orthopedic Surgery Additional Past Surgical History / Comment(s): Arm surgery, right leg below knee amputation, ostomy (2021) Past Anesthesia/Blood Transfusion Reactions: No Reported Reaction Additional Past Anesthesia/Blood Transfusion Reaction / Comm: recalled from previous admission Past Psychological History: No Psychological Hx Reported Additional Psychological History / Comment(s): recalled from previous admission Smoking Status: Former smoker Past Alcohol Use History: None Reported Additional Past Alcohol Use History / Comment(s): QUIT SMOKING IN 2017, STARTED SMOKING AT AGE 16, 1PPD. Past Drug Use History: None Reported Additional Drug Use History / Comment(s): recalled from previous admission - Past Family History Father Additional Family Medical History / Comment(s): DAD IN HIS TWENTIES - CAUSE UNKNOWN. Mother Family Medical History: Diabetes Mellitus Brother(s) Family Medical History: Cancer Additional Family Medical History / Comment(s): Kidney cancer as a baby. Medications and Allergies Home Medications Medication Instructions Recorded Confirmed Type Pantoprazole [Protonix] 40 mg PO BID 07/07/22 06/19/24 History Albuterol Nebulized [Ventolin 2.5 mg INHALATION RT-Q6H PRN 06/19/24 06/19/24 History Nebulized] Cholestyramine (with Sugar) 4 gm PO BID 06/19/24 06/19/24 History [Cholestyramine Packet] Enoxaparin [Lovenox] 90 mg SQ Q12H 06/19/24 06/19/24 History Folic Acid 1 mg PO DAILY 06/19/24 06/19/24 History Loperamide HCl [Imodium A-D] 4 mg PO TID 06/19/24 06/19/24 History Thiamine [Vitamin B-1] 100 mg PO DAILY 06/19/24 06/19/24 History Allergies Allergy/AdvReac Type Severity Reaction Status Date / Time piperacillin [From Zosyn] AdvReac Rash/Hives Verified 06/20/24 02:44 tazobactam [From Zosyn] AdvReac Rash/Hives Verified 06/20/24 02:44 Physical Exam Vitals: Vital Signs Temp Pulse Pulse Resp BP BP Pulse Ox 06/20/24 12:18 98.7 F 100 20 114/71 100 06/20/24 12:14 84 06/20/24 11:58 88 06/20/24 09:13 99 20 122/78 100 06/20/24 08:44 85 06/20/24 08:37 84 06/20/24 08:36 84 06/20/24 08:27 80 06/20/24 04:03 95 06/20/24 02:55 98 18 149/73 100 06/19/24 21:35 88 06/19/24 21:23 90 06/19/24 21:22 90 06/19/24 21:12 89 06/19/24 20:10 98.6 F 100 18 125/69 96 06/19/24 17:43 98.6 F 89 124/69 100 06/19/24 17:30 89 20 06/19/24 16:32 96 06/19/24 16:19 96 06/19/24 13:00 97 19 128/74 98 FiO2 06/20/24 12:18 40 06/20/24 12:14 06/20/24 11:58 06/20/24 09:13 35 06/20/24 08:44 06/20/24 08:37 06/20/24 08:36 06/20/24 08:27 40 06/20/24 04:03 40 06/20/24 02:55 35 06/19/24 21:35 06/19/24 21:23 06/19/24 21:22 40 06/19/24 21:12 06/19/24 20:10 35 06/19/24 17:43 35 06/19/24 17:30 06/19/24 16:32 06/19/24 16:19 06/19/24 13:00 Intake and Output 06/19/24 06/20/24 06/20/24 22:59 06:59 14:59 Intake Total 240 Output Total 1550 1100 Balance -1310 -1100 Intake: Oral 240 Output: Urine 550 500 Stool 1000 600 Other: Voiding Method Indwelling Catheter Indwelling Catheter Weight 108.862 kg 117.5 kg GENERAL DESCRIPTION: Middle-age male lying in bed, no distress. No tachypnea or accessory muscle of respiration use. HEENT: Shows Pallor , no scleral icterus. Oral mucous membrane is dry. NECK: Trach site is clear LUNGS: Unlabored breathing. Coarse breath sounds bilaterally HEART: S1, S2, regular rate and rhythm. No loud murmur ABDOMEN: Soft, no tenderness , guarding or rigidity, no organomegaly EXTREMITIES: No edema of feet. SKIN: No rash, no masses palpable. NEUROLOGICAL: The patient is awake, alert, mood and affect normal. Results CBC & Chem 7: 06/21/24 02:38 06/21/24 02:38 Labs: Abnormal Lab Results - Last 24 Hours (Table) 06/20/24 06/20/24 Range/Units 10:58 10:58 RBC 3.09 L (4.30-5.90) m/uL Hgb 7.7 L (13.0-17.5) gm/dL Hct 26.5 L (39.0-53.0) % MCH 24.8 L (25.0-35.0) pg MCHC 28.8 L (31.0-37.0) g/dL RDW 18.9 H (11.5-15.5) % Sodium 135 L (137-145) mmol/L Carbon Dioxide 32 H (22-30) mmol/L Creatinine 0.29 L (0.66-1.25) mg/dL Assessment and Plan (1) Abnormal chest x-ray Current Visit: Yes Status: Acute Code(s): R93.89 - ABNORMAL FINDINGS ON DX IMAGING OF OTH BODY STRUCTURES SNOMED Code(s): 005037287 (2) Penicillin allergy Current Visit: Yes Status: Acute Code(s): Z88.0 - ALLERGY STATUS TO PENICILLIN SNOMED Code(s): 81855100 Plan: 1patient presented to hospital with chest discomfort happened while the patient was being suctioned through his trach and this patient currently do not have any fever or elevated white count abnormality on the chest x-ray could be related to atelectasis rather than pneumonia 2-sputum culture as well as procalcitonin has been ordered results will be followed 3-May continue with the Rocephin while waiting for the culture to finalize Family the bedside questions present also in We will follow on clinical condition and cultures to further adjust medication if needed Thank you for this consultation we will follow the patient along with you Dictation was produced using [employer] dictation software. please excuse any grammatical, word or spelling errors. Time with Patient: Greater than 30
[2024-06-21 09:50] LABS: LDL Cholesterol,Calculated 77.6 mg/dL (0.0-131.0)
--- NOTE | 2024-06-21 11:43 | P.PN ---
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 Patient is obese and he has developed chronic generalized weakness, respiratory insufficiency with recurrent pneumonias requiring previous intubation and mechanical ventilation. The patient has also been treated for episodes of pneumonias in the past including pseudomonal pneumonia earlier this year. He does have also an area of tracheal stenosis related to previous tracheal manipulation and tracheostomy tube insertion. Currently he has a permanent tracheostomy tube in place to secure his airways. 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 Following his most recent hospitalization in March 2024, the patient was discharged to [facility] and following that he was discharged home where he has been taking care of by family members. Since then, the patient has done well. The patient came into the emergency department as he has stated that he has been feeling more short of breath and his dyspnea is occurring in episodes. Nevertheless, he has remained hemodynamically stable. He remains on 35 to 40% trach collar without development of any significant respiratory secretions. Blo od work has been essentially stable. The white cell count at time of admission was at 5.4 with a hemoglobin of 8.3 and a platelet count of 181. Sodium levels at 139, bicarb is at 33, BUN 23 with a creatinine of 0.35. Troponins were negative. LFTs are essentially within normal limits. Total protein was at 7.4 with an albumin of 3.5. The viral screen was negative in the emergency department. Also, the patient was given a chest x-ray that showed smaller lung volumes and poor respiratory effort. There is some cardiomegaly. No acute airspace disease or consolidation. His EKG showed a normal sinus mechanism. Based on that, the patient was hospitalized in the pulmonary consultation was r equested. He was started on empiric antibiotic coverage with IV Rocephin. Noted the patient is bedridden. He has chronic muscle atrophy and contractures in his lower extremities. He remains on therapeutic dose of Lovenox 90 mg subcu every 12 hours. On 06/21/2024, the patient feels that something is obstructing his airways. At times he is feeling short of breath. No clear explanation. There may be some anatomic problems and obstruction in his trachea as during my early bronchoscopies, I noted that the patient has an area of tracheal stenosis at the site of previous tracheostomy tube insertion. I think it would be douglas to reevaluate this patient's airway right bronchoscopy and document patency of the airway. No significant respiratory secretions for now. No fever. No chills. Blood cultures are still negative. White cell count is 6.7, hemoglobin is 8.5, BUN is 12 with a creatinine of 0.36. He remains on a 40% trach collar. Remains on TPN for nutritional support. Objective - Vital Signs Vital signs: Vital Signs Temp 98.2 F 06/21/24 04:38 Pulse 92 06/21/24 09:12 Resp 15 06/21/24 04:38 BP 110/66 06/21/24 04:38 Pulse Ox 100 06/21/24 04:38 FiO2 40 06/21/24 09:04 Intake & Output 06/20/24 06/21/24 06/21/24 18:59 06:59 18:59 Intake Total 1080 Output Total 1600 2700 Balance -1600 -1620 Weight 117.5 kg 117.5 kg Intake: Oral 1080 Output: Urine 400 550 Stool 1200 2150 Other: Voiding Method Indwelling Catheter Indwelling Catheter - Exam GENERAL: A 48-year-old male patient, Shiley tracheostomy tube in place. The patient is on a2 35 % trach collar. He is morbidly obese. Head exam was generally normal. There was no scleral icterus or corneal arcus. Mucous membranes were moist. HEENT: No scleral icterus. No conjunctival pallor. Normocephalic, atraumatic. Tracheostomy tube is in a good location. The patient has a subclavian left triple-lumen catheter in place. CARDIOVASCULAR: S1 and S2 present. No murmurs, rubs, or gallops. PULMONARY: Diminished breath sounds were bilaterally. No wheezes rhonchi or crackles, scattered rhonchi the patient's breath sounds are quite diminished b ilaterally. ABDOMEN: Soft, nontender, nondistended, normoactive bowel sounds. No palpable organomegaly. Functioning ileostomy. 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 EXTREMITIES: No cyanosis, clubbing, or pedal edema. Previous BKA on the right. NEUROLOGICAL: Profound weakness in all 4 extremities, weak cough, extensive muscle atrophy in all 4 extremities. awake and follows simple commands and communicates. SKIN: No rashes. No open wounds. - Labs CBC & Chem 7: 06/21/24 02:38 06/21/24 02:38 Labs: Abnormal Lab Results - Last 24 Hours (Table) 06/20/24 06/20/24 06/21/24 Range/Units 10:58 10:58 02:38 RBC 3.09 L (4.30-5.90) m/uL Hgb 7.7 L (13.0-17.5) gm/dL Hct 26.5 L (39.0-53.0) % MCH 24.8 L (25.0-35.0) pg MCHC 28.8 L (31.0-37.0) g/dL RDW 18.9 H (11.5-15.5) % Sodium 135 L 135 L (137-145) mmol/L Carbon Dioxide 32 H 32 H (22-30) mmol/L Creatinine 0.29 L 0.36 L (0.66-1.25) mg/dL Glucose 112 H (74-99) mg/dL ALT 90 H (4-49) U/L Alkaline Phosphatase 129 H (38-126) U/L Albumin 3.1 L (3.5-5.0) g/dL 06/21/24 Range/Units 02:38 RBC 3.32 L (4.30-5.90) m/uL Hgb 8.5 L (13.0-17.5) gm/dL Hct 28.8 L (39.0-53.0) % MCH (25.0-35.0) pg MCHC 29.6 L (31.0-37.0) g/dL RDW 19.0 H (11.5-15.5) % Sodium (137-145) mmol/L Carbon Dioxide (22-30) mmol/L Creatinine (0.66-1.25) mg/dL Glucose (74-99) mg/dL ALT (4-49) U/L Alkaline Phosphatase (38-126) U/L Albumin (3.5-5.0) g/dL Microbiology - Last 24 Hours (Table) 06/19/24 17:47 Blood Culture - Preliminary Blood Assessment and Plan Plan: Acute on chronic dyspnea. The patient reports episodes of shortness of breath. Despite this symptoms of increased shortness of breath, there is no clear indication for a pneumonia, and the chest x-ray shows smaller lung volumes without any airspace disease or consolidation. Oxygenation remained stable and the patient remains on 35% trach collar. Rule out evolving pneumonia. Rule out anxiety. Noted the patient has been on long-term anticoagulation with Lovenox 9 0 mg subcu every 12 hours. Possibility of pulm embolism is felt to be less likely. Considered the possibility of tracheal stenosis or anatomic obstruction in his trachea causing episodic shortness of breath. Chronic hypoxic/hypercapnic respiratory failure with episodes of pneumonia requiring intubation mechanical ventilation. The patient has a permanent tracheostomy tube in place. He has chronic respiratory insufficiency, important pulmonary mechanics related to his chronic debility and multiple abdominal surgeries and morbid obesity. He has poor ability to perform pulmonary toileting, weak cough, and has had recurrent pneumonias with gram-negative and MRSA. Most recent sputum sample from 02/26/2024 is positive for Pseudomonas aeruginosa and he was treated accordingly. No significant respiratory secretions for now. 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 Previous history of recurrent ventilator dependent respiratory failure, secondary to pneumonia and mucous plugging. The patient has undergone previous bronchoscopies and cultures from bronchoscopy on 12/31/2023 was positive for MRSA and subsequent bronchoscopy on 01/03/2024 was positive for Klebsiella pneumoniae and Bella glabrata. Most recent sputum analysis from 02/26/2024 and 03/17/2024 was positive for Pseudomonas aeruginosa and the patient was treated successfully. Previous episodes of sepsis secondary to pneumonia Crohn's disease, with previous complication of bowel perforation s/p colectomy and diverting ileostomy. The patient also has had previous history of abdominal wall bleeding there is currently inactive and stable. The patient has a high output ileostomy TPN for nutritional support Tracheobronchomalacia History of DVT, on therapeutic dose of Lovenox CVA/TIA, with residual left-sided weakness Right BKA History of asystole/cardiac arrest in 2021 Plan: The exact cause for his shortness of breath is not clear. It is possible that the patient is having some anatomic obstruction as the patient has demonstrated an area of tracheal stenosis and previous bronchoscopy which I performed in this patient during an earlier hospital/ICU admission. I think it would be douglas to reevaluate this patient and do another bronchoscopy to make sure that the middle of the lower trachea is patent and the tracheostomy tube is in a good location. Otherwise, he remains stable. Keep the patient on 40 % trach collar and monitor oxygenation Obtain sputum Gram stain and culture Hemodynamically stable Labs are within normal limits Chest x-ray is not showing any acute abnormalities Xanax for anxiety Monitor input output TPN for nutritional support Obtain blood cultures Obtain urine cultures Check procalcitonin level Resume home medications Will continue to follow
--- NOTE | 2024-06-21 14:20 | P.PN ---
Subjective Progress Note Date: 06/21/24 Principal diagnosis: Reason for follow-up abnormal chest x-ray question pneumonia Patient is a 49-year-old male with a past medical history significant for chron's disease in this patient who did have multiple surgeries and complication as far as abdominal surgeries did have history of recurrent pneumonia vent dependent respiratory failure currently on a trach collar CVA TIA patient has been brought into the hospital concerning for chest pain patient also have abnormal chest x-ray concern for possible pneumonia prompting this consultation. On today's evaluation that is 06/21/2024, Patient is afebrile patient is currently on 10 L trach collar and denies having any shortness of breath, the patient denies any chest pain or cough, the patient denies any nausea vomiting did not have any abdominal pain. Patient white count 6.7, creatinine 0.36 Objective - Vital Signs Vital signs: Vital Signs Temp 98.5 F 06/21/24 07:35 Pulse 88 06/21/24 12:07 Resp 18 06/21/24 09:45 BP 114/61 06/21/24 07:35 Pulse Ox 98 06/21/24 07:35 FiO2 40 06/21/24 09:04 Intake & Output 06/20/24 06/21/24 06/21/24 18:59 06:59 18:59 Intake Total 1080 Output Total 1600 2700 Balance -1600 -1620 Weight 117.5 kg 117.5 kg Intake: Oral 1080 Output: Urine 400 550 Stool 1200 2150 Other: Voiding Method Indwelling Catheter Indwelling Catheter External Catheter - Exam GENERAL DESCRIPTION: Middle-age lying in bed in no distress RESPIRATORY SYSTEM: Unlabored breathing , decreased breath sounds at bases HEART: S1 S2 regular rate and rhythm , ABDOMEN: Soft , no tenderness EXTREMITIES: No edema feet - Labs CBC & Chem 7: 06/21/24 02:38 06/21/24 02:38 Labs: Abnormal Lab Results - Last 24 Hours (Table) 06/20/24 06/21/24 06/21/24 Range/Units 10:58 02:38 02:38 RBC 3.32 L (4.30-5.90) m/uL Hgb 8.5 L (13.0-17.5) gm/dL Hct 28.8 L (39.0-53.0) % MCHC 29.6 L (31.0-37.0) g/dL RDW 19.0 H (11.5-15.5) % Sodium 135 L (137-145) mmol/L Carbon Dioxide 32 H (22-30) mmol/L Creatinine 0.36 L (0.66-1.25) mg/dL Glucose 112 H (74-99) mg/dL ALT 90 H (4-49) U/L Alkaline Phosphatase 129 H (38-126) U/L Albumin 3.1 L (3.5-5.0) g/dL Triglycerides 184.00 H (0.00-149.00) mg/dL HDL Cholesterol 28.60 L (40.00-60.00) mg/dL 06/21/24 Range/Units 06:45 RBC (4.30-5.90) m/uL Hgb (13.0-17.5) gm/dL Hct (39.0-53.0) % MCHC (31.0-37.0) g/dL RDW (11.5-15.5) % Sodium (137-145) mmol/L Carbon Dioxide (22-30) mmol/L Creatinine (0.66-1.25) mg/dL Glucose (74-99) mg/dL ALT (4-49) U/L Alkaline Phosphatase (38-126) U/L Albumin (3.5-5.0) g/dL Triglycerides 155.00 H (0.00-149.00) mg/dL HDL Cholesterol (40.00-60.00) mg/dL Microbiology - Last 24 Hours (Table) 06/19/24 17:47 Blood Culture - Preliminary Blood Assessment and Plan (1) Abnormal chest x-ray Current Visit: Yes Status: Acute Code(s): R93.89 - ABNORMAL FINDINGS ON DX IMAGING OF OTH BODY STRUCTURES SNOMED Code(s): 952532068 (2) Penicillin allergy Current Visit: Yes Status: Acute Code(s): Z88.0 - ALLERGY STATUS TO PENICILLIN SNOMED Code(s): 15827251 Plan: 1patient presented to hospital with chest discomfort happened while the patient was being suctioned through his trach and this patient currently do not have any fever or elevated white count abnormality on the chest x-ray could be related to atelectasis rather than pneumonia 2-sputum culture as well as procalcitonin has been ordered which are currently pending completion 3-to continue with the Rocephin while waiting for the culture to finalize Dictation was produced using [employer] dictation software. please excuse any grammatical, word or spelling errors. Time with Patient: Less than 30
[2024-06-21 15:46] LABS: INR 1.1 (<1.2); Prothrombin Time 11.6 sec (10.0-12.5)
[2024-06-21 15:53] LABS: Partial Thromboplastin Time 20.5 sec (22.0-30.0)
--- NOTE | 2024-06-21 16:42 | P.CRDCN ---
History of Present Illness Consult date: 06/21/24 History of present illness: HISTORY OF PRESENTING ILLNESS: 49-year-old with chronic hypoxia, tracheostomy tube in place, history of tracheal stenosis, recurrent ventilator dependent respiratory failure, Crohn's disease, TPN for nutritional support, tracheobronchomalacia. He got admitted to the hospital because of increased worsening shortness of breath. Cardiology is consulted for chest pain evaluation. Troponins were not elevated, NT proBNP was not elevated, LDL 77, EKG shows sinus rhythm with incomplete right bundle branch block with no significant ST-T wave changes concerning for ischemia REVIEW OF SYSTEMS: 14 point review of systems negative except as mention above in HPI. PHYSICAL EXAMINATION: Neck: Brisk carotid upstroke, no jugular venous distention. Lungs: Tracheostomy in place, mild crackles audible with diminished air entry in bilateral lung craft Heart: Regular rate and rhythm, S1-S2, no murmur or rub. Abdomen: Soft nontender, positive bowel sounds. Extremities: No edema, intact distal pulses. Neuro: Alert, oritented, no focal deficits. Detailed neuro exam was not performed. ASSESSMENT: # Atypical chest pain, ACS has been ruled out # Chest pain most likely because of respiratory distress # Acute on chronic hypoxic respiratory failure with chronic tracheostomy in place # Prior history of tracheomalacia and tracheal stenosis # Crohn's disease # TPN for nutrition # History of DVT on therapeutic Lovenox # CVA with residual left-sided weakness # Right BKA # History of cardiac arrest in 2021 PLAN: ACS has been ruled out Continue supportive care Cardiology team will sign off. Please reconsult us in case of any question. Messi Li MD, FACC, RPVI Thank you for allowing [facility] to participate in t his patient's care. Feel free to reach out in case of any followup questions. Past Medical History Past Medical History: CVA/TIA, Deep Vein Thrombosis (DVT) Additional Past Medical History / Comment(s): Progressing left upper thigh pain and swelling and left leg weakness. 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 Crohns. Ostomy Bag placed in 09/2021. History of Any Multi-Drug Resistant Organisms: MRSA, Other MDRO Date of last positivie culture/infection: 03/26/24-Other MDRO; 12/14/23-MRSA MDRO Source:: Other MDRO - sputum, BAL; MRSA- nasal Past Surgical History: Cholecystectomy, Orthopedic Surgery Additional Past Surgical History / Comment(s): Arm surgery, right leg below knee amputation, ostomy (2021) Past Anesthesia/Blood Transfusion Reactions: No Reported Reaction Additional Past Anesthesia/Blood Transfusion Reaction / Comment(s): recalled from previous admission Past Psychological History: No Psychological Hx Reported Additional Psychological History / Comment(s): recalled from previous admission Smoking Status: Former smoker Past Alcohol Use History: None Reported Additional Past Alcohol Use History / Comment(s): QUIT SMOKING IN 2017, STARTED SMOKING AT AGE 16, 1PPD. Past Drug Use History: None Reported Additional Drug Use History / Comment(s): recalled from previous admission - Past Family History Father Additional Family Medical History / Comment(s): DAD IN HIS TWENTIES - CAUSE UNKNOWN. Mother Family Medical History: Diabetes Mellitus Brother(s) Family Medical History: Cancer Additional Family Medical History / Comment(s): Kidney cancer as a baby. Medications and Allergies Home Medications Medication Instructions Recorded Confirmed Type Pantoprazole [Protonix] 40 mg PO BID 07/07/22 06/19/24 History Albuterol Nebulized [Ventolin 2.5 mg INHALATION RT-Q6H PRN 06/19/24 06/19/24 History Nebulized] Cholestyramine (with Sugar) 4 gm PO BID 06/19/24 06/19/24 History [Cholestyramine Packet] Enoxaparin [Lovenox] 90 mg SQ Q12H 06/19/24 06/19/24 History Folic Acid 1 mg PO DAILY 06/19/24 06/19/24 History Loperamide HCl [Imodium A-D] 4 mg PO TID 06/19/24 06/19/24 History Thiamine [Vitamin B-1] 100 mg PO DAILY 06/19/24 06/19/24 History Allergies Allergy/AdvReac Type Severity Reaction Status Date / Time piperacillin [From Zosyn] AdvReac Rash/Hives Verified 06/20/24 02:44 tazobactam [From Zosyn] AdvReac Rash/Hives Verified 06/20/24 02:44 Physical Exam Vitals: Vital Signs Temp Pulse Pulse Resp BP Pulse Ox FiO2 06/21/24 16:02 84 06/21/24 15:52 84 06/21/24 14:00 98.5 F 96 17 98/58 100 06/21/24 12:07 88 06/21/24 11:58 84 06/21/24 09:45 18 06/21/24 09:12 92 06/21/24 09:04 86 40 06/21/24 08:53 84 06/21/24 07:35 98.5 F 99 18 114/61 98 06/21/24 04:38 98.2 F 99 15 110/66 100 06/20/24 21:36 94 06/20/24 21:21 100 06/20/24 21:06 98 06/20/24 21:05 95 06/20/24 20:01 98.4 F 95 20 127/70 98 Intake and Output 06/21/24 06/21/24 06/21/24 06:59 14:59 22:59 Intake Total 1080 Output Total 2700 Balance -1620 Intake: Oral 1080 Output: Urine 550 Stool 2150 Other: Voiding Method External Catheter Weight 117.5 kg Results 06/21/24 02:38 06/21/24 02:38 Cardiac Enzymes 06/21/24 Range/Units 02:38 AST 56 (17-59) U/L Coagulation 06/21/24 Range/Units 14:51 PT 11.6 (10.0-12.5) sec APTT 20.5 L (22.0-30.0) sec Lipids 06/20/24 06/21/24 06/21/24 Range/Units 10:58 02:38 06:45 Triglycerides 184.00 H Cancelled 155.00 H (0.00-149.00) mg/dL Cholesterol 143.00 (0.00-200.00) mg/dL HDL Cholesterol 28.60 L (40.00-60.00) mg/dL Cholesterol/HDL Ratio 5.00 Ratio CBC 06/21/24 Range/Units 02:38 WBC 6.7 (3.8-10.6) k/uL RBC 3.32 L (4.30-5.90) m/uL Hgb 8.5 L (13.0-17.5) gm/dL Hct 28.8 L (39.0-53.0) % Plt Count 182 (150-450) k/uL Comprehensive Metabolic Panel 06/21/24 Range/Units 02:38 Sodium 135 L (137-145) mmol/L Potassium 4.1 (3.5-5.1) mmol/L Chloride 98 (98-107) mmol/L Carbon Dioxide 32 H (22-30) mmol/L BUN 12 (9-20) mg/dL Creatinine 0.36 L (0.66-1.25) mg/dL Glucose 112 H (74-99) mg/dL Calcium 9.0 (8.4-10.2) mg/dL AST 56 (17-59) U/L ALT 90 H (4-49) U/L Alkaline Phosphatase 129 H (38-126) U/L Total Protein 7.1 (6.3-8.2) g/dL Albumin 3.1 L (3.5-5.0) g/dL Current Medications Generic Name Dose Route Start Last Admin Trade Name Freq PRN Reason Stop Dose Admin Albuterol/Ipratropium 3 ml 06/19/24 20:00 06/21/24 15:51 Ipratropium-Albuterol 3 Ml Neb INHALATION 3 ml RT-QID ANNIE Administration Albuterol/Ipratropium 3 ml 06/19/24 16:46 Ipratropium-Albuterol 3 Ml Neb INHALATION RT-QID PRN Shortness Of Breath Or Wheezing Alprazolam 0.5 mg 06/20/24 10:52 06/21/24 09:42 Alprazolam 0.5 Mg Tab PO 0.5 mg TID PRN Administration Anxiety Budesonide 1 mg 06/19/24 16:47 06/21/24 08:53 Budesonide 1 Mg/2 Ml Nebu INHALATION 1 mg RT-BID ANNIE Administration Cholestyramine Resin 4 gm 06/19/24 21:00 06/21/24 09:39 Cholestyramine (With Sugar) 4 Gm Packet PO Not Given BID ANNIE Diphenhydramine HCl 25 mg 06/19/24 18:59 Diphenhydramine 50 Mg/Ml 1 Ml Vial IM Q6HR PRN Itching Enoxaparin Sodium 90 mg 06/19/24 12:45 06/21/24 12:55 Enoxaparin 100 Mg/Ml Syringe SQ 90 mg Q12H ANNIE Administration Folic Acid 1 mg 06/20/24 09:00 06/21/24 09:42 Folic Acid 1 Mg Tab PO 1 mg DAILY ANNIE Administration Formoterol Fumarate 20 mcg 06/19/24 16:47 06/21/24 08:53 Formoterol Fumarate 20 Mcg/2 Ml Nebu INHALATION 20 mcg RT-BID ANNIE Administration Hydromorphone HCl 0.5 mg 06/19/24 18:25 06/21/24 16:38 Hydromorphone 0.5 Mg/0.5 Ml Syringe IVP 0.5 mg Q4HR PRN Administration Pain Ceftriaxone Sodium 1 gm/ 50 mls @ 100 mls/hr 06/20/24 13:30 06/21/24 09:43 Sodium Chloride IVPB 100 mls/hr Q24HR ANNIE Administration Protocol Fat Emulsion Intravenous 250 mls @ 20.833 mls/hr 06/20/24 15:00 06/20/24 15:44 Lipids 20% IV 20.833 mls/hr Q72H ANNIE Administration Parenteral Vitamin Supplement 1,011 mls @ 75 mls/hr 06/21/24 16:00 10 ml/ Zinc/Copper/Manganese/ IV Selenium 1 ml/ Amino Ac/ .BY DURATION [facility] Electrol/Dextrose/Calcium Amino Ac/Electrol/Dextrose/Calcium 1,000 mls @ 75 mls/hr 06/21/24 16:00 Clinimix E 5%-20% Solution IV .BY DURATION [facility] Loperamide HCl 4 mg 06/19/24 16:00 06/21/24 16:39 Loperamide 2 Mg Cap PO 4 mg TID ANNIE Administration Nitroglycerin 0.4 mg 06/19/24 12:33 Nitroglycerin Sl Tabs 0.4 Mg Tab SUBLINGUAL Q5M PRN Chest Pain Pantoprazole Sodium 40 mg 06/19/24 21:00 06/21/24 09:43 Pantoprazole 40 Mg Tablet PO 40 mg BID [facility] Administration Thiamine HCl 100 mg 06/20/24 09:00 06/21/24 09:42 Thiamine 100 Mg Tab PO 100 mg DAILY ANNIE Administration Intake and Output 06/21/24 06/21/24 06/21/24 06:59 14:59 22:59 Intake Total 1080 Output Total 2700 Balance -1620 Intake: Oral 1080 Output: Urine 550 Stool 2150 Other: Voiding Method External Catheter Weight 117.5 kg 06/21/24 02:38 06/21/24 02:38
--- NOTE | 2024-06-21 17:28 | P.GSCN ---
History of Present Illness Consult date: 06/21/24 History of present illness: 49-year-old male, known to the surgical service with previous medical history of Crohn's disease with multiple operations secondary to this along with ileostomy in place. He has history of CVA/TIA and has had recurrent pneumonia issues. He has been in respiratory failure and on trach collar. Tracheostomy was placed in previous admission. 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 On changing the ileostomy bag earlier today, patient was found to have significant bleeding in the site. After replacement, no active bleeding is noted. Patient was noted to have previous blood in his ostomy on previous admission with concern for bleeding at the skin edge at the site of the ostomy. Hemoglobin currently 8.5. Review of Systems All systems: negative Past Medical History Past Medical History: CVA/TIA, Deep Vein Thrombosis (DVT) Additional Past Medical History / Comment(s): Progressing left upper thigh pain and swelling and left leg weakness. 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 Crohns. Ostomy Bag placed in 09/2021. History of Any Multi-Drug Resistant Organisms: MRSA, Other MDRO Year Discovered:: 03/26/24-Other MDRO; 12/14/23-MRSA MDRO Source:: Other MDRO - sputum, BAL; MRSA- nasal Past Surgical History: Cholecystectomy, Orthopedic Surgery Additional Past Surgical History / Comment(s): Arm surgery, right leg below knee amputation, ostomy (2021) Past Anesthesia/Blood Transfusion Reactions: No Reported Reaction Additional Past Anesthesia/Blood Transfusion Reaction / Comm: recalled from pre vious admission Past Psychological History: No Psychological Hx Reported Additional Psychological History / Comment(s): recalled from previous admission Smoking Status: Former smoker Past Alcohol Use History: None Reported Additional Past Alcohol Use History / Comment(s): QUIT SMOKING IN 2017, STARTED SMOKING AT AGE 16, 1PPD. Past Drug Use History: None Reported Additional Drug Use History / Comment(s): recalled from previous admission - Past Family History Father Additional Family Medical History / Comment(s): DAD IN HIS TWENTIES - CAUSE UNKNOWN. Mother Family Medical History: Diabetes Mellitus Brother(s) Family Medical History: Cancer Additional Family Medical History / Comment(s): Kidney cancer as a baby. Medications and Allergies Home Medications Medication Instructions Recorded Confirmed Type Pantoprazole [Protonix] 40 mg PO BID 07/07/22 06/19/24 History Albuterol Nebulized [Ventolin 2.5 mg INHALATION RT-Q6H PRN 06/19/24 06/19/24 History Nebulized] Cholestyramine (with Sugar) 4 gm PO BID 06/19/24 06/19/24 History [Cholestyramine Packet] Enoxaparin [Lovenox] 90 mg SQ Q12H 06/19/24 06/19/24 History Folic Acid 1 mg PO DAILY 06/19/24 06/19/24 History Loperamide HCl [Imodium A-D] 4 mg PO TID 06/19/24 06/19/24 History Thiamine [Vitamin B-1] 100 mg PO DAILY 06/19/24 06/19/24 History Allergies Allergy/AdvReac Type Severity Reaction Status Date / Time piperacillin [From Zosyn] AdvReac Rash/Hives Verified 06/20/24 02:44 tazobactam [From Zosyn] AdvReac Rash/Hives Verified 06/20/24 02:44 Surgical - Exam Osteopathic Statement: *. No significant issues noted on an osteopathic structural exam other than those noted in the History and Physical/Consult. Vital Signs Temp Pulse Resp BP Pulse Ox 98.4 F 86 18 115/58 98 06/19/24 08:25 06/19/24 08:25 06/19/24 08:25 06/19/24 08:25 06/19/24 08:25 - General no distress - Neck Trach in place on trach collar - Abdomen Ileostomy in place, no blood in bag Abdomen: soft, non tender Results - Labs 06/21/24 02:38 06/21/24 02:38 Abnormal Lab Results - Last 24 Hours (Table) 06/20/24 06/21/24 06/21/24 Range/Units 10:58 02:38 02:38 RBC 3.32 L (4.30-5.90) m/uL Hgb 8.5 L (13.0-17.5) gm/dL Hct 28.8 L (39.0-53.0) % MCHC 29.6 L (31.0-37.0) g/dL RDW 19.0 H (11.5-15.5) % APTT (22.0-30.0) sec Sodium 135 L (137-145) mmol/L Carbon Dioxide 32 H (22-30) mmol/L Creatinine 0.36 L (0.66-1.25) mg/dL Glucose 112 H (74-99) mg/dL ALT 90 H (4-49) U/L Alkaline Phosphatase 129 H (38-126) U/L Albumin 3.1 L (3.5-5.0) g/dL Triglycerides 184.00 H (0.00-149.00) mg/dL HDL Cholesterol 28.60 L (40.00-60.00) mg/dL 06/21/24 06/21/24 Range/Units 06:45 14:51 RBC (4.30-5.90) m/uL Hgb (13.0-17.5) gm/dL Hct (39.0-53.0) % MCHC (31.0-37.0) g/dL RDW (11.5-15.5) % APTT 20.5 L (22.0-30.0) sec Sodium (137-145) mmol/L Carbon Dioxide (22-30) mmol/L Creatinine (0.66-1.25) mg/dL Glucose (74-99) mg/dL ALT (4-49) U/L Alkaline Phosphatase (38-126) U/L Albumin (3.5-5.0) g/dL Triglycerides 155.00 H (0.00-149.00) mg/dL HDL Cholesterol (40.00-60.00) mg/dL Microbiology - Last 24 Hours (Table) 06/19/24 17:47 Blood Culture - Preliminary Blood Diabetes panel 06/20/24 06/21/24 06/21/24 Range/Units 10:58 02:38 06:45 Sodium 135 L (137-145) mmol/L Potassium 4.1 (3.5-5.1) mmol/L Chloride 98 (98-107) mmol/L Carbon Dioxide 32 H (22-30) mmol/L BUN 12 (9-20) mg/dL Creatinine 0.36 L (0.66-1.25) mg/dL Glucose 112 H (74-99) mg/dL Calcium 9.0 (8.4-10.2) mg/dL AST 56 (17-59) U/L ALT 90 H (4-49) U/L Alkaline Phosphatase 129 H (38-126) U/L Total Protein 7.1 (6.3-8.2) g/dL Albumin 3.1 L (3.5-5.0) g/dL Triglycerides 184.00 H Cancelled 155.00 H (0.00-149.00) mg/dL HDL Cholesterol 28.60 L (40.00-60.00) mg/dL Calcium panel 06/21/24 06/21/24 Range/Units 02:38 06:45 Calcium 9.0 (8.4-10.2) mg/dL Ionized Calcium Nita Cancelled 5.0 Phosphorus 3.7 (2.5-4.5) mg/dL Albumin 3.1 L (3.5-5.0) g/dL Pituitary panel 06/21/24 Range/Units 02:38 Sodium 135 L (137-145) mmol/L Potassium 4.1 (3.5-5.1) mmol/L Chloride 98 (98-107) mmol/L Carbon Dioxide 32 H (22-30) mmol/L BUN 12 (9-20) mg/dL Creatinine 0.36 L (0.66-1.25) mg/dL Glucose 112 H (74-99) mg/dL Calcium 9.0 (8.4-10.2) mg/dL Adrenal panel 06/21/24 Range/Units 02:38 Sodium 135 L (137-145) mmol/L Potassium 4.1 (3.5-5.1) mmol/L Chloride 98 (98-107) mmol/L Carbon Dioxide 32 H (22-30) mmol/L BUN 12 (9-20) mg/dL Creatinine 0.36 L (0.66-1.25) mg/dL Glucose 112 H (74-99) mg/dL Calcium 9.0 (8.4-10.2) mg/dL Total Bilirubin 0.6 (0.2-1.3) mg/dL AST 56 (17-59) U/L ALT 90 H (4-49) U/L Alkaline Phosphatase 129 H (38-126) U/L Total Protein 7.1 (6.3-8.2) g/dL Albumin 3.1 L (3.5-5.0) g/dL Assessment and Plan Plan: 49-year-old male with history of ostomy and concern for GI bleed. Currently, no blood in ostomy bag. Hemoglobin stable at 8.5. Will continue to follow and make recommendations based on patient's clinical progress should he bleed again.
[2024-06-21] MEDS: 1: MVI, ADULT NO.4 WITH VIT K 10 ML, TRACE (CONC-1ML/DOSE) 1 ML in AMINO ACID 5%-D20W+LY IV SCH (23:57)
[2024-06-22 03:02] LABS: Glucose,Whole Blood 186 mg/dL (70-110)
[2024-06-22 03:16] LABS: ABG HCO3 33 mmol/L (21-25); ABG PO2 65 mmHg (83-108); ABG TCO2 36 mmol/L (19-24); Allen Test Performed? Yes
--- NOTE | 2024-06-22 03:25 | XR ---
EXAM: XR Chest, 1 View CLINICAL HISTORY: ITS.REASON XR Reason: Resp distress TECHNIQUE: Frontal view of the chest. COMPARISON: No relevant prior studies available. IMPRESSION: Cardiomegaly. Left lower lobe opacity. Mild left effusion.
[2024-06-22 03:32] LABS: ABG Base Excess 3.2 mmol/L; ABG PCO2 93 mmHg (35-45); ABG PH 7.16 (7.35-7.45)
[2024-06-22 03:34] LABS: Glucose,Whole Blood 189 mg/dL (70-110)
[2024-06-22 04:32] LABS: ALT 85 U/L (4-49); AST 42 U/L (17-59); African American GFR (CKD) >90 (>60 ml/min/1.73 sqM); Albumin 3.7 g/dL (3.5-5.0); Albumin/Globulin Ratio 0.8; Alkaline Phosphatase 127 U/L (38-126); Anion Gap 6 mmol/L; Blood Urea Nitrogen 19 mg/dL (9-20); Calcium 9.5 mg/dL (8.4-10.2); Carbon Dioxide 30 mmol/L (22-30); Chloride 98 mmol/L (98-107); Globulin 4.4 g/dL; Glucose 161 mg/dL (74-99); Magnesium 1.7 mg/dL (1.6-2.3); Non-African American GFR(CKD) >90 (>60 ml/min/1.73 sqM); Phosphorus 3.9 mg/dL (2.5-4.5); Sodium 134 mmol/L (137-145); Total Bilirubin 0.6 mg/dL (0.2-1.3); Total Protein 8.1 g/dL (6.3-8.2)
[2024-06-22 04:48] LABS: Anisocytosis Slight; Basophils % (A) 1 %; Eosinophils # (A) 0.1 k/uL (0-0.7); Eosinophils % (A) 1 %; HCT 32.7 % (39.0-53.0); HGB 9.1 gm/dL (13.0-17.5); Hypochromasia Marked; Lymphocytes # (A) 0.8 k/uL (1.0-4.8); Lymphocytes % (A) 13 %; MCH 24.2 pg (25.0-35.0); MCHC 27.8 g/dL (31.0-37.0); Monocytes # (A) 0.4 k/uL (0-1.0); Monocytes % (A) 6 %; Neutrophils # (A) 4.9 k/uL (1.3-7.7); Neutrophils % (A) 79 %; Platelet Count 147 k/uL (150-450); Poikilocytosis Moderate; RBC 3.76 m/uL (4.30-5.90); RDW 18.8 % (11.5-15.5); WBC 6.2 k/uL (3.8-10.6)
--- NOTE | 2024-06-22 05:05 | PN ---
PROGRESS NOTE DATE OF SERVICE: 06/21/2024 SUBJECTIVE: This is a 49-year-old gentleman admitted with chest pain, also had significant cough and possible tracheobronchitis and early pneumonia also. The patient is on empiric antibiotics. The patient is being closely monitored. Cultures are pending at this time. The patient had significantly thick secretions also. Hemoglobin is 8.5. Dr. Holt is planning a bronchoscopy. PAST MEDICAL HISTORY: Reviewed. REVIEW OF SYSTEMS: Fourteen-point review of systems is negative except as mentioned earlier. CURRENT MEDICATIONS: Reviewed. PHYSICAL EXAMINATION: VITAL SIGNS: Pulse is 96, blood pressure 98/58, respirations 17. CHEST: A few scattered rhonchi and crackles. ABDOMEN: Soft. NERVOUS SYSTEM: Nonfocal. LABORATORY DATA: Reviewed. ASSESSMENT: 1. Chest pain with possible unstable angina. 2. Bilateral pneumonia, possibly aspiration versus gram-negative. 3. Anemia. 4. History of recent Pseudomonas pneumonia. 5. Tracheostomy. 6. On home TPN. 7. History of tracheal stenosis. 8. History of deep venous thrombosis. 9. History of Crohn's disease and profound immunosuppression. RECOMMENDATIONS: Recommended to continue current management and continue symptomatic treatment. Otherwise, at this time, I recommend to continue the antibiotics. Follow the cultures. Closely follow with Dr. Holt for possible bronchoscopy. Otherwise, prognosis guarded. Further recommendations to follow. MMODL / IJN: [id number] /
[2024-06-22 06:38] LABS: ABG Base Excess 3.8 mmol/L; ABG HCO3 31 mmol/L (21-25); ABG PCO2 62 mmHg (35-45); ABG PH 7.31 (7.35-7.45); ABG PO2 91 mmHg (83-108); ABG TCO2 33 mmol/L (19-24); Allen Test Performed? Yes
[2024-06-22] MEDS: NOREPINEPHRINE 4 MG in SODIUM CHLORIDE 0.9% 250 ML IV SCH (07:30)
[2024-06-22] MEDS: MAGNESIUM SULFATE-D5W PMX 1 GM in DEXTROSE/WATER 1 100ML.BAG IVPB ONE (11:17)
--- NOTE | 2024-06-22 12:24 | P.PN ---
Subjective Progress Note Date: 06/22/24 SURGICAL PROGRESS NOTE CHIEF COMPLAINT: Shortness of breath HISTORY OF PRESENT ILLNESS: Surgical service is following regards to possible bleeding around patient's stoma. He has had no further evidence of bleeding. Currently in the ICU for hypotension. Hemoglobin has gone from 8.5-9.1 PHYSICAL EXAM: VITAL SIGNS: Reviewed. GENERAL: Well-developed in no acute distress. HEENT: No sclera icterus. Extraocular movements grossly intact. Moist buccal mucosa. Head is atraumatic, normocephalic. ABDOMEN: Soft. Nondistended. Nontender. Ileostomy in place no blood noted in bag NEUROLOGIC: Alert and oriented. Cranial nerves II through XII grossly intact. ASSESSMENT: 1. History of Crohn's disease with ileostomy. Concern for GI bleed. No evidence of active bleeding hemoglobin stable at 9.1 PLAN: - Continue to follow - Continue to monitor for any signs or symptoms of bleeding - No surgical intervention planned at this time Physician Prototyper note has been reviewed by physician. Signing provider agrees with the documented findings, assessment, and plan of care. Attestation Patient seen and examined at bedside on 06/22/2024. Evaluation secondary to possible bleeding around patient's stoma. During time of evaluation, hemoglobin at 9.1. No further bleeding in the ostomy appliance. Continue to monitor. No plans for acute surgical intervention at this time. Milton Marrufo, Objective - Vital Signs Vital signs: Vital Signs Temp 100 F H 06/22/24 08:00 Pulse 72 06/22/24 12:12 Resp 20 06/22/24 11:00 BP 89/45 06/22/24 11:00 Pulse Ox 100 06/22/24 11:00 FiO2 75 06/22/24 12:00 Intake & Output 06/21/24 06/22/24 06/22/24 18:59 06:59 18:59 Intake Total 1755 752.618 Output Total 1250 950 Balance -1250 1755 -197.382 Weight 92.9 kg Intake: IV 1755 135 Amino Acid 5%-D20w+Lytes* 225 75 E* 1,000 ml @ 75 mls/hr IV .BY DURATION ANNIE Rx#: [id number] IV Bolus 1500 KVO 30 60 Intake, IV Titration 617.618 Amount Magnesium Sulfate-D5w Pmx 100 1 gm In Dextrose/Water 1 100ml.bag @ 100 mls/hr IVPB ONCE ONE Rx#: [id number] Mvi, Adult No.4 with Vit 375 K 10 ml Trace (Conc-1Ml/ Dose) 1 ml In Amino Acid 5%-D20w+Lytes*E* 1,000 ml @ 75 mls/hr IV .BY DURATION [facility] Rx#: [id number] Norepinephrine 4 mg In 92.618 Sodium Chloride 0.9% 250 ml @ 0.03 MCG/KG/MIN 10. 619 mls/hr IV .[id number] [facility] Rx#:[id number] cefTRIAXone 1 gm In 50 Sodium Chloride 0.9% 50 ml @ 100 mls/hr IVPB Q24HR [facility] Rx#:[id number] Output: Urine 350 Stool 900 950 Other: Voiding Method External Catheter External Catheter - Labs CBC & Chem 7: 06/24/24 04:41 06/24/24 04:41 Labs: Abnormal Lab Results - Last 24 Hours (Table) 06/21/24 06/21/24 06/22/24 Range/Units 06:45 14:51 02:59 RBC (4.30-5.90) m/uL Hgb (13.0-17.5) gm/dL Hct (39.0-53.0) % MCH (25.0-35.0) pg MCHC (31.0-37.0) g/dL RDW (11.5-15.5) % Plt Count (150-450) k/uL Lymphocytes # (1.0-4.8) k/uL APTT 20.5 L (22.0-30.0) sec ABG pH (7.35-7.45) ABG pCO2 (35-45) mmHg ABG pO2 (83-108) mmHg ABG HCO3 (21-25) mmol/L ABG Total CO2 (19-24) mmol/L ABG O2 Saturation (94-97) % Hemoglobin (13.0-17.5) gm/dL Sodium (137-145) mmol/L Creatinine (0.66-1.25) mg/dL Glucose (74-99) mg/dL POC Glucose (mg/dL) 186 H (70-110) mg/dL ALT (4-49) U/L Alkaline Phosphatase (38-126) U/L Triglycerides 155.00 H (0.00-149.00) mg/dL 06/22/24 06/22/24 06/22/24 Range/Units 03:13 03:32 03:50 RBC (4.30-5.90) m/uL Hgb (13.0-17.5) gm/dL Hct (39.0-53.0) % MCH (25.0-35.0) pg MCHC (31.0-37.0) g/dL RDW (11.5-15.5) % Plt Count (150-450) k/uL Lymphocytes # (1.0-4.8) k/uL APTT (22.0-30.0) sec ABG pH 7.16 L* (7.35-7.45) ABG pCO2 93 H* (35-45) mmHg ABG pO2 65 L (83-108) mmHg ABG HCO3 33 H (21-25) mmol/L ABG Total CO2 36 H (19-24) mmol/L ABG O2 Saturation 90.0 L (94-97) % Hemoglobin 8.4 L (13.0-17.5) gm/dL Sodium 134 L (137-145) mmol/L Creatinine 0.45 L (0.66-1.25) mg/dL Glucose 161 H (74-99) mg/dL POC Glucose (mg/dL) 189 H (70-110) mg/dL ALT 85 H (4-49) U/L Alkaline Phosphatase 127 H (38-126) U/L Triglycerides (0.00-149.00) mg/dL 06/22/24 06/22/24 Range/Units 03:50 06:39 RBC 3.76 L (4.30-5.90) m/uL Hgb 9.1 L (13.0-17.5) gm/dL Hct 32.7 L (39.0-53.0) % MCH 24.2 L (25.0-35.0) pg MCHC 27.8 L (31.0-37.0) g/dL RDW 18.8 H (11.5-15.5) % Plt Count 147 L (150-450) k/uL Lymphocytes # 0.8 L (1.0-4.8) k/uL APTT (22.0-30.0) sec ABG pH 7.31 L (7.35-7.45) ABG pCO2 62 H (35-45) mmHg ABG pO2 (83-108) mmHg ABG HCO3 31 H (21-25) mmol/L ABG Total CO2 33 H (19-24) mmol/L ABG O2 Saturation 98.0 H (94-97) % Hemoglobin 7.2 L (13.0-17.5) gm/dL Sodium (137-145) mmol/L Creatinine (0.66-1.25) mg/dL Glucose (74-99) mg/dL POC Glucose (mg/dL) (70-110) mg/dL ALT (4-49) U/L Alkaline Phosphatase (38-126) U/L Triglycerides (0.00-149.00) mg/dL Microbiology - Last 24 Hours (Table) 06/19/24 17:47 Blood Culture - Preliminary Blood
[2024-06-22] MEDS: CEFEPIME 2 GM in SODIUM CHLORIDE 0.9% 100 ML IVPB SCH (12:46)
[2024-06-22] MEDS: 1: MVI, ADULT NO.4 WITH VIT K 10 ML, TRACE (CONC-1ML/DOSE) 1 ML, SODIUM ACETATE 30 MEQ, IV SCH (12:47)
[2024-06-22] MEDS: LORazepam 1 MG/0.5 ML VIAL IV STA (14:50)
--- NOTE | 2024-06-22 15:40 | P.PN ---
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 Patient is obese and he has developed chronic generalized weakness, respiratory insufficiency with recurrent pneumonias requiring previous intubation and mechanical ventilation. The patient has also been treated for episodes of pneumonias in the past including pseudomonal pneumonia earlier this year. He does have also an area of tracheal stenosis related to previous tracheal manipulation and tracheostomy tube insertion. Currently he has a permanent tracheostomy tube in place to secure his airways. 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 Following his most recent hospitalization in March 2024, the patient was discharged to [facility] and following that he was discharged home where he has been taking care of by family members. Since then, the patient has done well. The patient came into the emergency department as he has stated that he has been feeling more short of breath and his dyspnea is occurring in episodes. Nevertheless, he has remained hemodynamically stable. He remains on 35 to 40% trach collar without development of any significant respiratory secretions. Blood work has been essentially stable. The white cell count at time of admission was at 5.4 with a hemoglobin of 8.3 and a platelet count of 181. Sodium levels at 139, bicarb is at 33, BUN 23 with a creatinine of 0.35. Troponins were negative. LFTs are essentially within normal limits. Total protein was at 7.4 with an albumin of 3.5. The viral screen was negative in the emergency department. Also, the patient was given a chest x-ray that showed smaller lung volumes and poor respiratory effort. There is some cardiomegaly. No acute airspace disease or consolidation. His EKG showed a normal sinus mechanism. Based on that, the patient was hospitalized in the pulmonary consultation was requested. He was started on empiric antibiotic coverage with IV Rocephin. Noted the patient is bedridden. He has chronic muscle atrophy and contractures in his lower extremities. He remains on therapeutic dose of Lovenox 90 mg subcu every 12 hours. On 06/21/2024, the patient feels that something is obstructing his airways. At times he is feeling short of breath. No clear explanation. There may be some anatomic problems and obstruction in his trachea as during my early bronchoscopies, I noted that the patient has an area of tracheal stenosis at the site of previous tracheostomy tube insertion. I think it would be douglas to reevaluate this patient's airway right bronchoscopy and document patency of the airway. No significant respiratory secretions for now. No fever. No chills. Blood cultures are still negative. White cell count is 6.7, hemoglobin is 8.5, BUN is 12 with a creatinine of 0.36. He remains on a 40% trach collar. Remains on TPN for nutritional support Patient was seen today on06/22/24, patient was transferred to the ICU yesterday because he was not ventilating well with his tracheostomy and trach collar. Patient was placed on mechanical ventilation, however his tracheostomy is a cuffless trach, and he was still losing significant amount of volume while on mechanical ventilation. Today I had to change his tracheostomy to a different tracheostomy same size and length, however it has a cough on it and we could inflate the cough to prevent any further volume loss on mechanical ventilation. And I was able to do so at bedside. Chest x-ray clearly showed evidence of extensive left lower lobe airspace disease and the patient underwent bronchoscopy and BAL of the left lower lobe. In the meantime I went ahead after placing any tracheostomy and placed the patient and mechanical ventilation and on propofol. Patient is now on tidal volume of 500 rate of 20 FiO2 100% and PEEP of 5, ABG is pending. Earlier today, patient was requiring a bit of norepinephrine at 0.06 mcg/kg/min he is also on TPN at 75 cc/h. WBC count 6.2 hemoglobin 9.1. ABG earlier today showed a pO2 of 65 pCO2 93 pH of 7.16 and this was on trach collar. On mechanical ventilation with volume leak and loss patient had a pO2 of 91 pCO2 62 pH of 7.31 but as the day went by he was having more volume loss requiring a tracheostomy tube change. Basic metabolic profile is normal, renal profile is normal. Chest x-ray as noted earlier extensive infiltrate involving the left lower lobe noted. Objective - Vital Signs Vital signs: Vital Signs Temp 98.7 F 06/22/24 12:00 Pulse 98 06/22/24 14:00 Resp 22 06/22/24 14:00 BP 130/56 06/22/24 14:00 Pulse Ox 98 06/22/24 14:00 FiO2 100 06/22/24 14:45 Intake & Output 06/21/24 06/22/24 06/22/24 18:59 06:59 18:59 Intake Total 1755 1022.618 Output Total 1250 950 Balance -1250 1755 72.618 Weight 92.9 kg Intake: IV 1755 155 Amino Acid 5%-D20w+Lytes* 225 75 E* 1,000 ml @ 75 mls/hr IV .BY DURATION [facility] Rx#: [id number] IV Bolus 1500 KVO 30 80 Intake, IV Titration 867.618 Amount Cefepime 2 gm In Sodium 100 Chloride 0.9% 100 ml @ 25 mls/hr IVPB Q8H [facility] Rx#: [id number] Magnesium Sulfate-D5w Pmx 100 1 gm In Dextrose/Water 1 100ml.bag @ 100 mls/hr IVPB ONCE ONE Rx#: [id number] Mvi, Adult No.4 with Vit 375 K 10 ml Trace (Conc-1Ml/ Dose) 1 ml In Amino Acid 5%-D20w+Lytes*E* 1,000 ml @ 75 mls/hr IV .BY DURATION [facility] Rx#: [id number] Norepinephrine 4 mg In 92.618 Sodium Chloride 0.9% 250 ml @ 0.03 MCG/KG/MIN 10. 619 mls/hr IV .[id number] [facility] Rx#:[id number] Sodium Acetate 30 meq 150 Sodium Phosphate 3 mmol Potassium Chloride 20 meq Calcium Gluconate 0.5 gm Magnesium Sulfate gm 1.5 gm In Amino Acids 5 %/ Dextrose 20 % 1,000 ml @ 75 mls/hr IV .BY DURATION [facility] Rx#:[id number] cefTRIAXone 1 gm In 50 Sodium Chloride 0.9% 50 ml @ 100 mls/hr IVPB Q24HR [facility] Rx#:[id number] Output: Urine 350 Stool 900 950 Other: Voiding Method External Catheter External Catheter - Exam GENERAL: A 48-year-old male patient, Shiley tracheostomy tube in place. The patient is on mechanical ventilation early this morning patient had to be placed in the ICU however significant volume loss was noted. Mostly because the tracheostomy is cuffless. Head exam was generally normal. There was no scleral icterus or corneal arcus. Mucous membranes were moist. HEENT: No scleral icterus. No conjunctival pallor. Normocephalic, atraumatic. Tracheostomy tube is in a good location. The patient has a subclavian left triple-lumen catheter in place. CARDIOVASCULAR: S1 and S2 present. No murmurs, rubs, or gallops. PULMONARY: Diminished breath sounds were bilaterally. No wheezes rhonchi or crackles, scattered rhonchi the patient's breath sounds are quite diminished bilaterally. ABDOMEN: Soft, nontender, nondistended, normoactive bowel sounds. No palpable organomegaly. Functioning ileostomy. 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 EXTREMITIES: No cyanosis, clubbing, or pedal edema. Right-sided BKA noted. NEUROLOGICAL: Profound weakness in all 4 extremities, weak cough, extensive muscle atrophy in all 4 extremities. Patient is awake, follows instructions. SKIN: No rashes. No open wounds. - Labs CBC & Chem 7: 06/22/24 03:50 06/22/24 03:50 Labs: Abnormal Lab Results - Last 24 Hours (Table) 06/21/24 06/22/24 06/22/24 Range/Units 14:51 02:59 03:13 RBC (4.30-5.90) m/uL Hgb (13.0-17.5) gm/dL Hct (39.0-53.0) % MCH (25.0-35.0) pg MCHC (31.0-37.0) g/dL RDW (11.5-15.5) % Plt Count (150-450) k/uL Lymphocytes # (1.0-4.8) k/uL APTT 20.5 L (22.0-30.0) sec ABG pH 7.16 L* (7.35-7.45) ABG pCO2 93 H* (35-45) mmHg ABG pO2 65 L (83-108) mmHg ABG HCO3 33 H (21-25) mmol/L ABG Total CO2 36 H (19-24) mmol/L ABG O2 Saturation 90.0 L (94-97) % Hemoglobin 8.4 L (13.0-17.5) gm/dL Sodium (137-145) mmol/L Creatinine (0.66-1.25) mg/dL Glucose (74-99) mg/dL POC Glucose (mg/dL) 186 H (70-110) mg/dL ALT (4-49) U/L Alkaline Phosphatase (38-126) U/L 06/22/24 06/22/24 06/22/24 Range/Units 03:32 03:50 03:50 RBC 3.76 L (4.30-5.90) m/uL Hgb 9.1 L (13.0-17.5) gm/dL Hct 32.7 L (39.0-53.0) % MCH 24.2 L (25.0-35.0) pg MCHC 27.8 L (31.0-37.0) g/dL RDW 18.8 H (11.5-15.5) % Plt Count 147 L (150-450) k/uL Lymphocytes # 0.8 L (1.0-4.8) k/uL APTT (22.0-30.0) sec ABG pH (7.35-7.45) ABG pCO2 (35-45) mmHg ABG pO2 (83-108) mmHg ABG HCO3 (21-25) mmol/L ABG Total CO2 (19-24) mmol/L ABG O2 Saturation (94-97) % Hemoglobin (13.0-17.5) gm/dL Sodium 134 L (137-145) mmol/L Creatinine 0.45 L (0.66-1.25) mg/dL Glucose 161 H (74-99) mg/dL POC Glucose (mg/dL) 189 H (70-110) mg/dL ALT 85 H (4-49) U/L Alkaline Phosphatase 127 H (38-126) U/L 06/22/24 Range/Units 06:39 RBC (4.30-5.90) m/uL Hgb (13.0-17.5) gm/dL Hct (39.0-53.0) % MCH (25.0-35.0) pg MCHC (31.0-37.0) g/dL RDW (11.5-15.5) % Plt Count (150-450) k/uL Lymphocytes # (1.0-4.8) k/uL APTT (22.0-30.0) sec ABG pH 7.31 L (7.35-7.45) ABG pCO2 62 H (35-45) mmHg ABG pO2 (83-108) mmHg ABG HCO3 31 H (21-25) mmol/L ABG Total CO2 33 H (19-24) mmol/L ABG O2 Saturation 98.0 H (94-97) % Hemoglobin 7.2 L (13.0-17.5) gm/dL Sodium (137-145) mmol/L Creatinine (0.66-1.25) mg/dL Glucose (74-99) mg/dL POC Glucose (mg/dL) (70-110) mg/dL ALT (4-49) U/L Alkaline Phosphatase (38-126) U/L Microbiology - Last 24 Hours (Table) 06/21/24 21:41 Gram Stain - Preliminary Sputum 06/19/24 17:47 Blood Culture - Preliminary Blood Assessment and Plan Assessment: Impression: Acute on chronic hypoxic and hypercapnic respiratory failure, multifactorial and I strongly suspect a left lower lobe pneumonia with significant air leak because the patient is on a cuffless tracheostomy tube had to be changed and had to perform bronchoscopy and BAL of the left lower lobe. Patient clearly has what seems to be a left lower lobe pneumonia. Acute left lower lobe pneumonia Tracheal stenosis at the site of the previously inserted tracheostomy tube, visualized on most recent bronchoscopy. Previous history of recurrent ventilator dependent respiratory failure, secondary to pneumonia and mucous plugging. The patient has undergone previous bronchoscopies and cultures from bronchoscopy on 12/31/2023 was positive for MRSA and subsequent bronchoscopy on 01/03/2024 was positive for Klebsiella pneumoniae and Bella glabrata. Most recent sputum analysis from 02/26/2024 and 03/17/2024 was positive for Pseudomonas aeruginosa and the patient was treated successfully. Status post bronchoscopy and BAL of left lower lobe on 06/22/2024 Previous episodes of sepsis secondary to pneumonia Crohn's disease, with previous complication of bowel perforation s/p colectomy and diverting ileostomy. The patient also has had previous history of abdominal wall bleeding there is currently inactive and stable. The patient has a high output ileostomy TPN for nutritional support Tracheobronchomalacia History of DVT, on therapeutic dose of Lovenox CVA/TIA, with residual left-sided weakness Right BKA History of asystole/cardiac arrest in 2021 Hypotension requiring norepinephrine, possible sepsis and septic shock. Recommendation: Continue ventilatory support Continue hemodynamic support patient is requiring low-dose norepinephrine Continue antibiotics Continue bronchodilators GI DVT prophylaxis Continue TPN Check cultures including blood/BAL and urine Resume home meds Patient is critically ill Critical care time is over 35 minutes not including the time spent on procedures Will continue to follow, and will keep in the ICU for now. Time with Patient: Greater than 30
[2024-06-22] MEDS: NOREPINEPHRINE 8 MG in SODIUM CHLORIDE 0.9% 250 ML IV SCH (15:44)
[2024-06-22] MEDS: PANTOPRAZOLE 40 MG/10 ML VIAL IVP SCH (20:01)
--- NOTE | 2024-06-22 21:33 | OP ---
OPERATIVE REPORT DATE OF SERVICE : PROCEDURE PERFORMED: Tracheostomy change. PREOPERATIVE DIAGNOSES: Acute hypoxic respiratory failure with significant loss of volume on mechanical ventilation using the old tracheostomy, which is cuffless. POSTOPERATIVE DIAGNOSES: Acute hypoxic respiratory failure with significant loss of volume on mechanical ventilation using the old tracheostomy, which is cuffless. ANESTHESIA USED: Ativan 1 mg IV push. PROCEDURE IN DETAIL: The patient was placed in a supine position, the old tracheostomy which was a size 6 Shiley, cuffless, was removed easily, and using a size 6 XLT Shiley with cuff and not fenestrated, it was size 6, but it is an XLT size. This was introduced into the stoma and advanced into the proper position, and this was connected to mechanical ventilation. Procedure was well tolerated, no complications and there was no further leak after the cuff was inflated on the new tracheostomy tube. MMTORIBIOL / IJN: [id number] /
--- NOTE | 2024-06-22 21:39 | OP ---
OPERATIVE REPORT DATE OF SERVICE : PROCEDURE PERFORMED: Bronchoscopy and bronchoalveolar lavage of the left lower lobe. PREOPERATIVE DIAGNOSES: Acute hypoxic respiratory failure and left lower lobe pneumonia. POSTOPERATIVE DIAGNOSES: Acute hypoxic respiratory failure and left lower lobe pneumonia. ANESTHESIA USED: The patient was on propofol and he received 1 mg of Ativan IV push. PROCEDURE IN DETAIL: The patient was placed in a supine position. He was already connected to mechanical ventilation. An adapter was applied to the tracheostomy, which was placed just prior to bronchoscopy, and the adapter was connected to mechanical ventilation. Then, after adequate sedation, the bronchoscope was advanced down through the tracheostomy tube all the way to the distal end of the tracheostomy, there was no evidence of any obstruction. In the distal end of the tracheostomy, I was visualizing the avery, and I was visualizing the right side and left side. There were minimal clear secretions in the right lower lobe; however, the left lower lobe was noted to have significant mucoid and bloody secretions in the left lower lobe and lingula. Bronchoalveolar lavage of the lingula and left lower lobe was done, fluid obtained was sent for different diagnostic studies/cultures. Procedure was well tolerated, no complications. The patient was kept on mechanical ventilation after the tracheostomy tube change. MMODL / IJN: [id number] /
--- NOTE | 2024-06-22 23:10 | P.PN ---
Subjective Progress Note Date: 06/22/24 Principal diagnosis: Reason for follow-up abnormal chest x-ray question pneumonia Patient is a 49-year-old male with a past medical history significant for chron's disease in this patient who did have multiple surgeries and complication as far as abdominal surgeries did have history of recurrent pneumonia vent dependent respiratory failure currently on a trach collar CVA TIA patient has been brought into the hospital concerning for chest pain patient also have abnormal chest x-ray concern for possible pneumonia prompting this consultation. On today's evaluation that is 06/22/2024, patient did have worsening of his respiratory status requiring transfer to the ICU and the patient has been intubated patient also spiked a fever of 100 F axillary patient is currently intubated lethargic sleepy no vomiting or diarrhea has been reported currently not requiring any pressor support patient is on 75% FiO2. Patient did have a white count of 6.2 creatinine 0.45 did have a chest x-ray left lower lobe opacity Objective - Vital Signs Vital signs: Vital Signs Temp 100 F H 06/22/24 08:00 Pulse 88 06/22/24 09:00 Resp 20 06/22/24 09:00 BP 88/43 06/22/24 09:00 Pulse Ox 100 06/22/24 09:00 FiO2 75 06/22/24 08:00 Intake & Output 06/21/24 06/22/24 06/22/24 18:59 06:59 18:59 Intake Total 1755 326.238 Output Total 1250 Balance -1250 1755 326.238 Weight 92.9 kg Intake: IV 1755 105 Amino Acid 5%-D20w+Lytes* 225 75 E* 1,000 ml @ 75 mls/hr IV .BY DURATION [facility] Rx#: [id number] IV Bolus 1500 KVO 30 30 Intake, IV Titration 221.238 Amount Mvi, Adult No.4 with Vit 150 K 10 ml Trace (Conc-1Ml/ Dose) 1 ml In Amino Acid 5%-D20w+Lytes*E* 1,000 ml @ 75 mls/hr IV .BY DURATION [facility] Rx#: [id number] Norepinephrine 4 mg In 21.238 Sodium Chloride 0.9% 250 ml @ 0.03 MCG/KG/MIN 10. 619 mls/hr IV .[id number] [facility] Rx#:[id number] cefTRIAXone 1 gm In 50 Sodium Chloride 0.9% 50 ml @ 100 mls/hr IVPB Q24HR [facility] Rx#:[id number] Output: Urine 350 Stool 900 Other: Voiding Method External Catheter External Catheter - Exam GENERAL DESCRIPTION: Middle-age male intubated through the trach RESPIRATORY SYSTEM: Unlabored breathing , decreased breath sounds at bases HEART: S1 S2 regular rate and rhythm , ABDOMEN: Soft , no tenderness EXTREMITIES: No edema feet - Labs CBC & Chem 7: 06/22/24 03:50 06/22/24 03:50 Labs: Abnormal Lab Results - Last 24 Hours (Table) 06/21/24 06/21/24 06/22/24 Range/Units 06:45 14:51 02:59 RBC (4.30-5.90) m/uL Hgb (13.0-17.5) gm/dL Hct (39.0-53.0) % MCH (25.0-35.0) pg MCHC (31.0-37.0) g/dL RDW (11.5-15.5) % Plt Count (150-450) k/uL Lymphocytes # (1.0-4.8) k/uL APTT 20.5 L (22.0-30.0) sec ABG pH (7.35-7.45) ABG pCO2 (35-45) mmHg ABG pO2 (83-108) mmHg ABG HCO3 (21-25) mmol/L ABG Total CO2 (19-24) mmol/L ABG O2 Saturation (94-97) % Hemoglobin (13.0-17.5) gm/dL Sodium (137-145) mmol/L Creatinine (0.66-1.25) mg/dL Glucose (74-99) mg/dL POC Glucose (mg/dL) 186 H (70-110) mg/dL ALT (4-49) U/L Alkaline Phosphatase (38-126) U/L Triglycerides 155.00 H (0.00-149.00) mg/dL 06/22/24 06/22/24 06/22/24 Range/Units 03:13 03:32 03:50 RBC (4.30-5.90) m/uL Hgb (13.0-17.5) gm/dL Hct (39.0-53.0) % MCH (25.0-35.0) pg MCHC (31.0-37.0) g/dL RDW (11.5-15.5) % Plt Count (150-450) k/uL Lymphocytes # (1.0-4.8) k/uL APTT (22.0-30.0) sec ABG pH 7.16 L* (7.35-7.45) ABG pCO2 93 H* (35-45) mmHg ABG pO2 65 L (83-108) mmHg ABG HCO3 33 H (21-25) mmol/L ABG Total CO2 36 H (19-24) mmol/L ABG O2 Saturation 90.0 L (94-97) % Hemoglobin 8.4 L (13.0-17.5) gm/dL Sodium 134 L (137-145) mmol/L Creatinine 0.45 L (0.66-1.25) mg/dL Glucose 161 H (74-99) mg/dL POC Glucose (mg/dL) 189 H (70-110) mg/dL ALT 85 H (4-49) U/L Alkaline Phosphatase 127 H (38-126) U/L Triglycerides (0.00-149.00) mg/dL 06/22/24 06/22/24 Range/Units 03:50 06:39 RBC 3.76 L (4.30-5.90) m/uL Hgb 9.1 L (13.0-17.5) gm/dL Hct 32.7 L (39.0-53.0) % MCH 24.2 L (25.0-35.0) pg MCHC 27.8 L (31.0-37.0) g/dL RDW 18.8 H (11.5-15.5) % Plt Count 147 L (150-450) k/uL Lymphocytes # 0.8 L (1.0-4.8) k/uL APTT (22.0-30.0) sec ABG pH 7.31 L (7.35-7.45) ABG pCO2 62 H (35-45) mmHg ABG pO2 (83-108) mmHg ABG HCO3 31 H (21-25) mmol/L ABG Total CO2 33 H (19-24) mmol/L ABG O2 Saturation 98.0 H (94-97) % Hemoglobin 7.2 L (13.0-17.5) gm/dL Sodium (137-145) mmol/L Creatinine (0.66-1.25) mg/dL Glucose (74-99) mg/dL POC Glucose (mg/dL) (70-110) mg/dL ALT (4-49) U/L Alkaline Phosphatase (38-126) U/L Triglycerides (0.00-149.00) mg/dL Microbiology - Last 24 Hours (Table) 06/19/24 17:47 Blood Culture - Preliminary Blood Assessment and Plan (1) Abnormal chest x-ray Current Visit: Yes Status: Acute Code(s): R93.89 - ABNORMAL FINDINGS ON DX IMAGING OF OTH BODY STRUCTURES SNOMED Code(s): 873565358 (2) Penicillin allergy Current Visit: Yes Status: Acute Code(s): Z88.0 - ALLERGY STATUS TO PENICILLIN SNOMED Code(s): 76813732 (3) Pneumonia Current Visit: No Status: Acute Code(s): J18.9 - PNEUMONIA, UNSPECIFIED ORGANISM SNOMED Code(s): 368148102 (4) Sepsis Current Visit: No Status: Acute Code(s): A41.9 - SEPSIS, UNSPECIFIED ORGANISM SNOMED Code(s): 53792121 Plan: 1patient did have worsening of his respiratory status requiring intubation and transferred to ICU also spiked a fever And did have a heart rate in the 90s medically ready for SIRS/sepsis source likely left lower lobe pneumonia concerning for possible gram-negative in this patient who did have Zosyn allergies that would limit the number of antibiotics safe to use. 2we will obtain blood culture check a procalcitonin check a sputum for Gram stain and culture. 3I will discontinue Rocephin and start the patient on cefepime 2 g every 8 hours pending finalization of the culture Dictation was produced using [employer] dictation software. please excuse any grammatical, word or spelling errors. Time with Patient: Greater than 30
--- NOTE | 2024-06-23 02:57 | PN ---
PROGRESS NOTE DATE OF SERVICE: 06/22/2024 SUBJECTIVE: This is a 49-year-old gentleman, who was admitted with chest pain, possible unstable angina, also had possible bilateral pneumonia also. Overnight, the patient had significant desaturation and the patient is monitored in ICU at this time. The patient is currently on a trach collar at this time. PAST MEDICAL HISTORY: Reviewed. REVIEW OF SYSTEMS: Could not be taken. CURRENT MEDICATIONS: Reviewed. PHYSICAL EXAMINATION: VITAL SIGNS: Pulse is 98, blood pressure 130/56, respirations 20. HEENT: Conjunctivae normal. CARDIOVASCULAR: S1, S2. RESPIRATIONS: Bilateral scattered rhonchi and crackles. ABDOMEN: Soft. NERVOUS SYSTEM: Nonfocal. LABORATORY DATA: Reviewed. ASSESSMENT: 1. Bilateral pneumonia, possibly aspiration versus gram-negative with acute hypoxic respiratory failure, status post mechanical ventilation. 2. Chest pain with possible unstable angina, improved. 3. Anemia. 4. History of recent Pseudomonas pneumonia. 5. Tracheostomy. 6. On home TPN. 7. History of tracheal stenosis. 8. History of deep venous thrombosis. 9. History of Crohn's disease and profound immunosuppression. RECOMMENDATIONS: Recommended to continue current management and continue symptomatic treatment. Cultures are negative so far. I recommend broad-spectrum IV antibiotics, bronchodilators. The patient is on cefepime. Closely follow with Infectious Disease and Pulmonary. Dr. Ho is planning bronchoscopy. I would recommend repeat labs. Cardiology was also consulted previously. Further recommendations to follow. Chest x- ray reviewed personally. MMODL / IJN: [id number] /
[2024-06-23 05:54] LABS: Glucose,Whole Blood 145 mg/dL (70-110)
[2024-06-23 06:14] LABS: Basophils # (A) 0.03 10*3/uL (0.00-0.10); Basophils % (A) 0.5 %; Eosinophils # (A) 0.14 10*3/uL (0.04-0.35); Eosinophils % (A) 2.2 %; HCT 24.3 % (39.6-50.0); Lymphocytes # (A) 1.58 10*3/uL (0.90-5.00); Lymphocytes % (A) 24.3 %; MCH 24.8 pg (27.0-32.0); MCHC 28.8 g/dL (32.0-37.0); MCV 86.2 fL (80.0-97.0); Mean Platelet Volume 12.2 fL (9.5-12.2); Monocytes # (A) 0.58 10*3/uL (0.20-1.00); Monocytes % (A) 8.9 %; Neutrophils # (A) 4.14 10*3/uL (1.80-7.70); Neutrophils % (A) 63.8 %; Platelet Count 180 10*3/uL (140-440); RBC 2.82 10*6/uL (4.40-5.60); RDW 17.9 % (11.5-14.5); WBC 6.49 10*3/uL (4.50-10.00)
[2024-06-23 06:29] LABS: ALT 42 U/L (4-49); AST 18 U/L (17-59); African American GFR (CKD) >90 (>60 ml/min/1.73 sqM); Alkaline Phosphatase 94 U/L (38-126); Anion Gap 4 mmol/L; Blood Urea Nitrogen 19 mg/dL (9-20); Carbon Dioxide 29 mmol/L (22-30); Chloride 102 mmol/L (98-107); Glucose 144 mg/dL (74-99); Magnesium 2.2 mg/dL (1.6-2.3); Non-African American GFR(CKD) >90 (>60 ml/min/1.73 sqM); Potassium 3.2 mmol/L (3.5-5.1); Sodium 135 mmol/L (137-145); Total Bilirubin 0.8 mg/dL (0.2-1.3); Total Protein 6.8 g/dL (6.3-8.2)
[2024-06-23 06:57] LABS: Phosphorus 0.6 mg/dL (2.5-4.5)
[2024-06-23] MEDS ORDERED: Potassium Replacement Protocol 1 EACH MISC MISCELLANE PRN (07:10)
[2024-06-23] MEDS ORDERED: Phosphorus Replacement Protoco 1 EACH MISC MISCELLANE PRN (07:10)
--- NOTE | 2024-06-23 08:03 | XR ---
EXAMINATION TYPE: XR chest 1V portable DATE OF EXAM: 06/23/2024 CLINICAL INDICATION: Male, 49 years old with history of Tube placement, progress study. Shortness of breath TECHNIQUE: Single AP portable semiupright view of the chest is obtained. COMPARISON: Chest x-ray from one day earlier and older studies FINDINGS: Stable tracheostomy tube. Stable left central venous catheter. New orogastric tube extends below the diaphragm. Persistent low lung volumes with bilateral increased opacities. Some improved aeration. Cardiac silho uette size is less prominent. Osseous structures are intact. Surgical clips in the lower right neck a re redemonstrated. IMPRESSION: 1. New orogastric tube satisfactory in position. 2. Improved cardiomegaly. Improved left greater than right bilateral acute infiltrates and/or atelect asis. [facility], , 06/23/2024 8:00 AM
[2024-06-23] MEDS: SODIUM PHOSPHATE 60 MMOL in DEXTROSE 5% IN WATER 250 ML IVPB ONE (08:07)
[2024-06-23] MEDS: POTASSIUM CHLORIDE 10 MEQ in WATER FOR INJECTION 1 100ML.BAG IVPB SCH (08:08)
[2024-06-23] MEDS: ALPRAZolam 0.5 MG TAB PO SCH (09:58)
[2024-06-23 12:23] LABS: Glucose,Whole Blood 121 mg/dL (70-110)
--- NOTE | 2024-06-23 13:14 | P.PN ---
Subjective Progress Note Date: 06/23/24 Principal diagnosis: Reason for follow-up abnormal chest x-ray question pneumonia Patient is a 49-year-old male with a past medical history significant for chron's disease in this patient who did have multiple surgeries and complication as far as abdominal surgeries did have history of recurrent pneumonia vent dependent respiratory failure currently on a trach collar CVA TIA patient has been brought into the hospital concerning for chest pain patient also have abnormal chest x-ray concern for possible pneumonia prompting this consultation. On today's evaluation that is 06/23/2024, Patient is afebrile this morning patient remains to be intubated on the vent FiO2 is down to 35%, denies any chest pain or worsening of her abdominal pain. Patient white count 6.49 creatinine 0.35 sputum is growing gram-negative bacilli Objective - Vital Signs Vital signs: Vital Signs Temp 98.7 F 06/23/24 12:00 Pulse 86 06/23/24 13:00 Resp 20 06/23/24 13:00 BP 104/51 06/23/24 13:00 Pulse Ox 100 06/23/24 13:00 FiO2 35 06/23/24 12:00 Intake & Output 06/22/24 06/23/24 06/23/24 18:59 06:59 18:59 Intake Total 7916.803 6389.078 1563.236 Output Total 1590 960 445 Balance 56.833 017.630 7277.236 Weight 92.6 kg Intake: IV 181 120 60 Amino Acid 5%-D20w+Lytes* 75 E* 1,000 ml @ 75 mls/hr IV .BY DURATION [facility] Rx#: [id number] KVO 106 120 60 Intake, IV Titration 7323.990 2249.078 1403.236 Amount Cefepime 2 gm In Sodium 100 100 100 Chloride 0.9% 100 ml @ 25 mls/hr IVPB Q8H [facility] Rx#: [id number] Magnesium Sulfate-D5w Pmx 100 1 gm In Dextrose/Water 1 100ml.bag @ 100 mls/hr IVPB ONCE ONE Rx#: [id number] Mvi, Adult No.4 with Vit 375 K 10 ml Trace (Conc-1Ml/ Dose) 1 ml In Amino Acid 5%-D20w+Lytes*E* 1,000 ml @ 75 mls/hr IV .BY DURATION [facility] Rx#: [id number] Mvi, Adult No.4 with Vit 375 K 10 ml Trace (Conc-1Ml/ Dose) 1 ml Sodium Acetate 30 meq Sodium Phosphate 3 mmol Potassium Chloride 20 meq Calcium Gluconate 0.5 gm Magnesium Sulfate gm 1.5 gm In Amino Acids 5 %/Dextrose 20 % 1,000 ml @ 50 mls/hr IV .BY DURATION [facility] Rx#: [id number] Norepinephrine 4 mg In 254.000 Sodium Chloride 0.9% 250 ml @ 0.03 MCG/KG/MIN 10. 619 mls/hr IV .[id number] [facility] Rx#:[id number] Norepinephrine 8 mg In 67.620 300.326 118.372 Sodium Chloride 0.9% 250 ml @ 0.11 MCG/KG/MIN 19. 774 mls/hr IV .Q13H3M [facility] Rx#:[id number] Potassium Chloride 10 meq 400 In Water For Injection 1 100ml.bag @ 100 mls/hr IVPB Q1HR [facility] Rx#: [id number] Sodium Acetate 30 meq 450 900 75 Sodium Phosphate 3 mmol Potassium Chloride 20 meq Calcium Gluconate 0.5 gm Magnesium Sulfate gm 1.5 gm In Amino Acids 5 %/ Dextrose 20 % 1,000 ml @ 50 mls/hr IV .BY DURATION [facility] Rx#:[id number] Sodium Phosphate 60 mmol 250 In Dextrose 5% in Water 250 ml @ 45 mls/hr IVPB ONCE ONE Rx#:[id number] cefTRIAXone 1 gm In 50 Sodium Chloride 0.9% 50 ml @ 100 mls/hr IVPB Q24HR [facility] Rx#:[id number] propofoL 1,000 mg In 69.213 111.752 84.864 Empty Bag 1 bag @ 15 MCG/ KG/MIN 8.361 mls/hr IV . [id number] [facility] Rx#:[id number] Other 100 Output: Gastric Drainage 200 Urine 640 510 445 Stool 950 Urine/Stool Mix 250 Other: Voiding Method Indwelling Catheter Indwelling Catheter - Exam GENERAL DESCRIPTION: Middle-age male intubated through the trach RESPIRATORY SYSTEM: Unlabored breathing , decreased breath sounds at bases HEART: S1 S2 regular rate and rhythm , ABDOMEN: Soft , no tenderness EXTREMITIES: No edema feet - Labs CBC & Chem 7: 06/23/24 05:48 06/23/24 05:48 Labs: Abnormal Lab Results - Last 24 Hours (Table) 06/22/24 06/23/24 06/23/24 Range/Units 11:44 05:48 05:48 RBC 2.82 L (4.40-5.60) 10*6/uL Hgb 7.0 L (13.0-17.0) g/dL Hct 24.3 L (39.6-50.0) % MCH 24.8 L (27.0-32.0) pg MCHC 28.8 L (32.0-37.0) g/dL Sodium 135 L (137-145) mmol/L Potassium 3.2 L (3.5-5.1) mmol/L Creatinine 0.35 L (0.66-1.25) mg/dL Glucose 144 H (74-99) mg/dL POC Glucose (mg/dL) (70-110) mg/dL Phosphorus 0.6 L* (2.5-4.5) mg/dL Albumin 3.0 L (3.5-5.0) g/dL Procalcitonin 0.59 H (0.02-0.50) ng/mL 06/23/24 06/23/24 Range/Units 05:53 12:21 RBC (4.40-5.60) 10*6/uL Hgb (13.0-17.0) g/dL Hct (39.6-50.0) % MCH (27.0-32.0) pg MCHC (32.0-37.0) g/dL Sodium (137-145) mmol/L Potassium (3.5-5.1) mmol/L Creatinine (0.66-1.25) mg/dL Glucose (74-99) mg/dL POC Glucose (mg/dL) 145 H 121 H (70-110) mg/dL Phosphorus (2.5-4.5) mg/dL Albumin (3.5-5.0) g/dL Procalcitonin (0.02-0.50) ng/mL Microbiology - Last 24 Hours (Table) 06/21/24 21:41 Gram Stain - Preliminary Sputum Sputum Culture - Preliminary Gram Neg Bacilli 06/22/24 15:00 Gram Stain - Preliminary Bronchoalviolar Lavage - Right Bronchial Washings Culture - Preliminary 06/19/24 17:47 Blood Culture - Preliminary Blood Assessment and Plan (1) Abnormal chest x-ray Current Visit: Yes Status: Acute Code(s): R93.89 - ABNORMAL FINDINGS ON DX IMAGING OF OTH BODY STRUCTURES SNOMED Code(s): 723818269 (2) Penicillin allergy Current Visit: Yes Status: Acute Code(s): Z88.0 - ALLERGY STATUS TO PENICILLIN SNOMED Code(s): 37895045 (3) Pneumonia Current Visit: No Status: Acute Code(s): J18.9 - PNEUMONIA, UNSPECIFIED ORGANISM SNOMED Code(s): 907970215 (4) Sepsis Current Visit: No Status: Acute Code(s): A41.9 - SEPSIS, UNSPECIFIED ORGANISM SNOMED Code(s): 92938569 Plan: 1patient did have worsening of his respiratory status requiring intubation and transferred to ICU also spiked a fever And did have a heart rate in the 90s medically ready for SIRS/sepsis source likely left lower lobe pneumonia concerning for possible gram-negative in this patient who did have Zosyn allergies that would limit the number of antibiotics safe to use. 2patient is status post bronchoscopy lavage as well as sputum culture which is currently growing gram-negative bacilli for the patient is currently covered with cefepime pending finalization of the culture Dictation was produced using [employer] dictation software. please excuse any grammatical, word or spelling errors. Time with Patient: Less than 30
--- NOTE | 2024-06-23 13:47 | P.PN ---
Subjective Progress Note Date: 06/23/24 SURGICAL PROGRESS NOTE CHIEF COMPLAINT: Shortness of breath HISTORY OF PRESENT ILLNESS: Surgical service is following regards to possible bleeding around patient's stoma. He has had no further evidence of bleeding. Patient remains in the ICU. Tracheostomy tube changed by pulmonary service. He does remain on Levophed for his hypotension. Afebrile. WBC 6.49 Hgb 9.1 down to 7.0. No evidence of active bleeding. Platelets 180. Patient on TPN for nutrition support. Patient status post tracheostomy placement February 2024. PHYSICAL EXAM: VITAL SIGNS: Reviewed. GENERAL: Well-developed in no acute distress. HEENT: Trach clean dry and intact ABDOMEN: Soft. Nondistended. Nontender. Ileostomy in place no blood noted in bag. Stool present NEUROLOGIC: Alert and oriented. Cranial nerves II through XII grossly intact. ASSESSMENT: 1. History of Crohn's disease with ileostomy. Concern for GI bleed. No evidence of active bleeding 2. History of tracheal stenosis PLAN: - Continue to follow - Continue to monitor for any signs or symptoms of bleeding - Repeat CBC in AM Physician Industrial Engineering Intern note has been reviewed by physician. Signing provider agrees with the documented findings, assessment, and plan of care. Objective - Vital Signs Vital signs: Vital Signs Temp 98.7 F 06/23/24 12:00 Pulse 86 06/23/24 13:00 Resp 20 06/23/24 13:00 BP 104/51 06/23/24 13:00 Pulse Ox 100 06/23/24 13:00 FiO2 35 06/23/24 12:00 Intake & Output 06/22/24 06/23/24 06/23/24 18:59 06:59 18:59 Intake Total 4614.472 3641.078 1563.236 Output Total 1590 960 445 Balance 56.833 005.109 8496.236 Weight 92.6 kg Intake: IV 181 120 60 Amino Acid 5%-D20w+Lytes* 75 E* 1,000 ml @ 75 mls/hr IV .BY DURATION [facility] Rx#: [id number] KVO 106 120 60 Intake, IV Titration 4819.342 3710.078 1403.236 Amount Cefepime 2 gm In Sodium 100 100 100 Chloride 0.9% 100 ml @ 25 mls/hr IVPB Q8H [facility] Rx#: [id number] Magnesium Sulfate-D5w Pmx 100 1 gm In Dextrose/Water 1 100ml.bag @ 100 mls/hr IVPB ONCE ONE Rx#: [id number] Mvi, Adult No.4 with Vit 375 K 10 ml Trace (Conc-1Ml/ Dose) 1 ml In Amino Acid 5%-D20w+Lytes*E* 1,000 ml @ 75 mls/hr IV .BY DURATION [facility] Rx#: [id number] Mvi, Adult No.4 with Vit 375 K 10 ml Trace (Conc-1Ml/ Dose) 1 ml Sodium Acetate 30 meq Sodium Phosphate 3 mmol Potassium Chloride 20 meq Calcium Gluconate 0.5 gm Magnesium Sulfate gm 1.5 gm In Amino Acids 5 %/Dextrose 20 % 1,000 ml @ 50 mls/hr IV .BY DURATION [facility] Rx#: [id number] Norepinephrine 4 mg In 254.000 Sodium Chloride 0.9% 250 ml @ 0.03 MCG/KG/MIN 10. 619 mls/hr IV .[id number] [facility] Rx#:[id number] Norepinephrine 8 mg In 67.620 300.326 118.372 Sodium Chloride 0.9% 250 ml @ 0.11 MCG/KG/MIN 19. 774 mls/hr IV .Q13H3M [facility] Rx#:[id number] Potassium Chloride 10 meq 400 In Water For Injection 1 100ml.bag @ 100 mls/hr IVPB Q1HR [facility] Rx#: [id number] Sodium Acetate 30 meq 450 900 75 Sodium Phosphate 3 mmol Potassium Chloride 20 meq Calcium Gluconate 0.5 gm Magnesium Sulfate gm 1.5 gm In Amino Acids 5 %/ Dextrose 20 % 1,000 ml @ 50 mls/hr IV .BY DURATION [facility] Rx#:[id number] Sodium Phosphate 60 mmol 250 In Dextrose 5% in Water 250 ml @ 45 mls/hr IVPB ONCE ONE Rx#:[id number] cefTRIAXone 1 gm In 50 Sodium Chloride 0.9% 50 ml @ 100 mls/hr IVPB Q24HR [facility] Rx#:[id number] propofoL 1,000 mg In 69.213 111.752 84.864 Empty Bag 1 bag @ 15 MCG/ KG/MIN 8.361 mls/hr IV . [id number] [facility] Rx#:[id number] Other 100 Output: Gastric Drainage 200 Urine 640 510 445 Stool 950 Urine/Stool Mix 250 Other: Voiding Method Indwelling Catheter Indwelling Catheter Indwelling Catheter - Labs CBC & Chem 7: 06/23/24 05:48 06/23/24 05:48 Labs: Abnormal Lab Results - Last 24 Hours (Table) 06/22/24 06/23/24 06/23/24 Range/Units 11:44 05:48 05:48 RBC 2.82 L (4.40-5.60) 10*6/uL Hgb 7.0 L (13.0-17.0) g/dL Hct 24.3 L (39.6-50.0) % MCH 24.8 L (27.0-32.0) pg MCHC 28.8 L (32.0-37.0) g/dL Sodium 135 L (137-145) mmol/L Potassium 3.2 L (3.5-5.1) mmol/L Creatinine 0.35 L (0.66-1.25) mg/dL Glucose 144 H (74-99) mg/dL POC Glucose (mg/dL) (70-110) mg/dL Phosphorus 0.6 L* (2.5-4.5) mg/dL Albumin 3.0 L (3.5-5.0) g/dL Procalcitonin 0.59 H (0.02-0.50) ng/mL 06/23/24 06/23/24 Range/Units 05:53 12:21 RBC (4.40-5.60) 10*6/uL Hgb (13.0-17.0) g/dL Hct (39.6-50.0) % MCH (27.0-32.0) pg MCHC (32.0-37.0) g/dL Sodium (137-145) mmol/L Potassium (3.5-5.1) mmol/L Creatinine (0.66-1.25) mg/dL Glucose (74-99) mg/dL POC Glucose (mg/dL) 145 H 121 H (70-110) mg/dL Phosphorus (2.5-4.5) mg/dL Albumin (3.5-5.0) g/dL Procalcitonin (0.02-0.50) ng/mL Microbiology - Last 24 Hours (Table) 06/21/24 21:41 Gram Stain - Preliminary Sputum Sputum Culture - Preliminary Gram Neg Bacilli 06/22/24 15:00 Gram Stain - Preliminary Bronchoalviolar Lavage - Right Bronchial Washings Culture - Preliminary 06/19/24 17:47 Blood Culture - Preliminary Blood
--- NOTE | 2024-06-23 14:12 | P.PN ---
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 Patient is obese and he has developed chronic generalized weakness, respiratory insufficiency with recurrent pneumonias requiring previous intubation and mechanical ventilation. The patient has also been treated for episodes of pneumonias in the past including pseudomonal pneumonia earlier this year. He does have also an area of tracheal stenosis related to previous tracheal manipulation and tracheostomy tube insertion. Currently he has a permanent tracheostomy tube in place to secure his airways. 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 Following his most recent hospitalization in March 2024, the patient was discharged to [facility] and following that he was discharged home where he has been taking care of by family members. Since then, the patient has done well. The patient came into the emergency department as he has stated that he has been feeling more short of breath and his dyspnea is occurring in episodes. Nevertheless, he has remained hemodynamically stable. He remains on 35 to 40% trach collar without development of any significant respiratory secretions. Blood work has been essentially stable. The white cell count at time of admission was at 5.4 with a hemoglobin of 8.3 and a platelet count of 181. Sodium levels at 139, bicarb is at 33, BUN 23 with a creatinine of 0.35. Troponins were negative. LFTs are essentially within normal limits. Total protein was at 7.4 with an albumin of 3.5. The viral screen was negative in the emergency department. Also, the patient was given a chest x-ray that showed smaller lung volumes and poor respiratory effort. There is some cardiomegaly. No acute airspace disease or consolidation. His EKG showed a normal sinus mechanism. Based on that, the patient was hospitalized in the pulmonary consultation was requested. He was started on empiric antibiotic coverage with IV Rocephin. Noted the patient is bedridden. He has chronic muscle atrophy and contractures in his lower extremities. He remains on therapeutic dose of Lovenox 90 mg subcu every 12 hours. On 06/21/2024, the patient feels that something is obstructing his airways. At times he is feeling short of breath. No clear explanation. There may be some anatomic problems and obstruction in his trachea as during my early bronchoscopies, I noted that the patient has an area of tracheal stenosis at the site of previous tracheostomy tube insertion. I think it would be douglas to reevaluate this patient's airway right bronchoscopy and document patency of the airway. No significant respiratory secretions for now. No fever. No chills. Blood cultures are still negative. White cell count is 6.7, hemoglobin is 8.5, BUN is 12 with a creatinine of 0.36. He remains on a 40% trach collar. Remains on TPN for nutritional support Patient was seen today on06/22/24, patient was transferred to the ICU yesterday because he was not ventilating well with his tracheostomy and trach collar. Patient was placed on mechanical ventilation, however his tracheostomy is a cuffless trach, and he was still losing significant amount of volume while on mechanical ventilation. Today I had to change his tracheostomy to a different tracheostomy same size and length, however it has a cough on it and we could inflate the cough to prevent any further volume loss on mechanical ventilation. And I was able to do so at bedside. Chest x-ray clearly showed evidence of extensive left lower lobe airspace disease and the patient underwent bronchoscopy and BAL of the left lower lobe. In the meantime I went ahead after placing any tracheostomy and placed the patient and mechanical ventilation and on propofol. Patient is now on tidal volume of 500 rate of 20 FiO2 100% and PEEP of 5, ABG is pending. Earlier today, patient was requiring a bit of norepinephrine at 0.06 mcg/kg/min he is also on TPN at 75 cc/h. WBC count 6.2 hemoglobin 9.1. ABG earlier today showed a pO2 of 65 pCO2 93 pH of 7.16 and this was on trach collar. On mechanical ventilation with volume leak and loss patient had a pO2 of 91 pCO2 62 pH of 7.31 but as the day went by he was having more volume loss requiring a tracheostomy tube change. Basic metabolic profile is normal, renal profile is normal. Chest x-ray as noted earlier extensive infiltrate involving the left lower lobe noted. Patient was seen and evaluated today on 06/23/2024, patient remains in the ICU, intubated mechanically ventilated, patient did quite well since we had the tracheostomy changed to a cuffed tracheostomy in part same size. He is now on assist-control rate of 20 tidal volume 500 FiO2 35% and PEEP of 5 ABG showed a pO2 of 91 pCO2 62 pH of 7.31. Patient remains on TPN at 50 mL/h propofol at 20 mcg/kg/min norepinephrine is still needed at 0.12 mcg/kg/min patient remains on cefepime he is also on Lovenox 90 mg subcu every 12 hours. Labs today showed WBC of 6.49 hemoglobin of 7 potassium is a bit low at 3.2 otherwise electrolytes are normal renal profile is normal procalcitonin level is 0.59, C. difficile screen is negative chest x-ray showed significant improvement in his left lower lobe infiltrate Objective - Vital Signs Vital signs: Vital Signs Temp 98.7 F 06/23/24 12:00 Pulse 86 06/23/24 13:00 Resp 20 06/23/24 13:00 BP 104/51 06/23/24 13:00 Pulse Ox 100 06/23/24 13:00 FiO2 35 06/23/24 12:00 Intake & Output 06/22/24 06/23/24 06/23/24 18:59 06:59 18:59 Intake Total 0733.669 9560.078 1563.236 Output Total 1590 960 445 Balance 56.833 750.920 0507.236 Weight 92.6 kg 92.6 kg Intake: IV 181 120 60 Amino Acid 5%-D20w+Lytes* 75 E* 1,000 ml @ 75 mls/hr IV .BY DURATION [facility] Rx#: [id number] KVO 106 120 60 Intake, IV Titration 8107.525 7194.078 1403.236 Amount Cefepime 2 gm In Sodium 100 100 100 Chloride 0.9% 100 ml @ 25 mls/hr IVPB Q8H [facility] Rx#: [id number] Magnesium Sulfate-D5w Pmx 100 1 gm In Dextrose/Water 1 100ml.bag @ 100 mls/hr IVPB ONCE ONE Rx#: [id number] Mvi, Adult No.4 with Vit 375 K 10 ml Trace (Conc-1Ml/ Dose) 1 ml In Amino Acid 5%-D20w+Lytes*E* 1,000 ml @ 75 mls/hr IV .BY DURATION [facility] Rx#: [id number] Mvi, Adult No.4 with Vit 375 K 10 ml Trace (Conc-1Ml/ Dose) 1 ml Sodium Acetate 30 meq Sodium Phosphate 3 mmol Potassium Chloride 20 meq Calcium Gluconate 0.5 gm Magnesium Sulfate gm 1.5 gm In Amino Acids 5 %/Dextrose 20 % 1,000 ml @ 50 mls/hr IV .BY DURATION [facility] Rx#: [id number] Norepinephrine 4 mg In 254.000 Sodium Chloride 0.9% 250 ml @ 0.03 MCG/KG/MIN 10. 619 mls/hr IV .[id number] [facility] Rx#:[id number] Norepinephrine 8 mg In 67.620 300.326 118.372 Sodium Chloride 0.9% 250 ml @ 0.11 MCG/KG/MIN 19. 774 mls/hr IV .Q13H3M [facility] Rx#:[id number] Potassium Chloride 10 meq 400 In Water For Injection 1 100ml.bag @ 100 mls/hr IVPB Q1HR [facility] Rx#: [id number] Sodium Acetate 30 meq 450 900 75 Sodium Phosphate 3 mmol Potassium Chloride 20 meq Calcium Gluconate 0.5 gm Magnesium Sulfate gm 1.5 gm In Amino Acids 5 %/ Dextrose 20 % 1,000 ml @ 50 mls/hr IV .BY DURATION [facility] Rx#:[id number] Sodium Phosphate 60 mmol 250 In Dextrose 5% in Water 250 ml @ 45 mls/hr IVPB ONCE ONE Rx#:[id number] cefTRIAXone 1 gm In 50 Sodium Chloride 0.9% 50 ml @ 100 mls/hr IVPB Q24HR [facility] Rx#:[id number] propofoL 1,000 mg In 69.213 111.752 84.864 Empty Bag 1 bag @ 15 MCG/ KG/MIN 8.361 mls/hr IV . [id number] [facility] Rx#:[id number] Other 100 Output: Gastric Drainage 200 Urine 640 510 445 Stool 950 Urine/Stool Mix 250 Other: Voiding Method Indwelling Catheter Indwelling Catheter Indwelling Catheter - Exam GENERAL: A 48-year-old male patient, resting in bed, intubated and mechanically ventilated. Head exam was generally normal. There was no scleral icterus or corneal arcus. Mucous membranes were moist. HEENT: No scleral icterus. No conjunctival pallor. Normocephalic, atraumatic. Tracheostomy tube is in a good location. The patient has a subclavian left triple-lumen catheter in place. CARDIOVASCULAR: S1 and S2 present. No murmurs, rubs, or gallops. PULMONARY: Diminished breath sounds were bilaterally. No wheezes rhonchi or crackles, scattered rhonchi the patient's breath sounds are quite diminished bilaterally. ABDOMEN: Soft, nontender, nondistended, normoactive bowel sounds. No palpable organomegaly. Functioning ileostomy. 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 EXTREMITIES: No cyanosis, clubbing, or pedal edema. Right-sided BKA noted. NEUROLOGICAL: Profound weakness in all 4 extremities, weak cough, extensive muscle atrophy in all 4 extremities. Patient is awake, follows instructions. SKIN: No rashes. No open wounds. - Labs CBC & Chem 7: 06/23/24 05:48 06/23/24 05:48 Labs: Abnormal Lab Results - Last 24 Hours (Table) 06/22/24 06/23/24 06/23/24 Range/Units 11:44 05:48 05:48 RBC 2.82 L (4.40-5.60) 10*6/uL Hgb 7.0 L (13.0-17.0) g/dL Hct 24.3 L (39.6-50.0) % MCH 24.8 L (27.0-32.0) pg MCHC 28.8 L (32.0-37.0) g/dL Sodium 135 L (137-145) mmol/L Potassium 3.2 L (3.5-5.1) mmol/L Creatinine 0.35 L (0.66-1.25) mg/dL Glucose 144 H (74-99) mg/dL POC Glucose (mg/dL) (70-110) mg/dL Phosphorus 0.6 L* (2.5-4.5) mg/dL Albumin 3.0 L (3.5-5.0) g/dL Procalcitonin 0.59 H (0.02-0.50) ng/mL 06/23/24 06/23/24 Range/Units 05:53 12:21 RBC (4.40-5.60) 10*6/uL Hgb (13.0-17.0) g/dL Hct (39.6-50.0) % MCH (27.0-32.0) pg MCHC (32.0-37.0) g/dL Sodium (137-145) mmol/L Potassium (3.5-5.1) mmol/L Creatinine (0.66-1.25) mg/dL Glucose (74-99) mg/dL POC Glucose (mg/dL) 145 H 121 H (70-110) mg/dL Phosphorus (2.5-4.5) mg/dL Albumin (3.5-5.0) g/dL Procalcitonin (0.02-0.50) ng/mL Microbiology - Last 24 Hours (Table) 06/21/24 21:41 Gram Stain - Preliminary Sputum Sputum Culture - Preliminary Gram Neg Bacilli 06/22/24 15:00 Gram Stain - Preliminary Bronchoalviolar Lavage - Right Bronchial Washings Culture - Preliminary 06/19/24 17:47 Blood Culture - Preliminary Blood Assessment and Plan Assessment: Impression: Acute on chronic hypoxic and hypercapnic respiratory failure, multifactorial and I strongly suspect a left lower lobe pneumonia Acute left lower lobe pneumonia Tracheal stenosis at the site of the previously inserted tracheostomy tube, visualized on most recent bronchoscopy. Previous history of recurrent ventilator dependent respiratory failure, secondary to pneumonia and mucous plugging. The patient has undergone previous bronchoscopies and cultures from bronchoscopy on 12/31/2023 was positive for MRSA and subsequent bronchoscopy on 01/03/2024 was positive for Klebsiella pneumoniae and Bella glabrata. Most recent sputum analysis from 02/26/2024 and 03/17/2024 was positive for Pseudomonas aeruginosa and the patient was treated successfully. Status post bronchoscopy and BAL of left lower lobe on 06/22/2024 Previous episodes of sepsis secondary to pneumonia Crohn's disease, with previous complication of bowel perforation s/p colectomy and diverting ileostomy. The patient also has had previous history of abdominal wall bleeding there is currently inactive and stable. The patient has a high output ileostomy TPN for nutritional support Tracheobronchomalacia History of DVT, on therapeutic dose of Lovenox CVA/TIA, with residual left-sided weakness Right BKA History of asystole/cardiac arrest in 2021 Hypotension requiring norepinephrine, possible sepsis and septic shock. Recommendation: Keep in ICU Continue ventilatory support Continue hemodynamic support patient is requiring low-dose norepinephrine Continue antibiotics Continue bronchodilators GI DVT prophylaxis Continue TPN Check cultures including blood/BAL and urine Patient remains critically ill Critical care time is over 32 minutes Will continue to follow, in the ICU Time with Patient: Greater than 30
[2024-06-23] MEDS ORDERED: 1: MVI, ADULT NO.4 WITH VIT K 10 ML, TRACE (CONC-1ML/DOSE) 1 ML, SODIUM ACETATE 30 MEQ, IV SCH (18:00)
--- NOTE | 2024-06-23 18:12 | PN ---
PROGRESS NOTE DATE OF SERVICE: 06/23/2024 SUBJECTIVE: This is a 49-year-old gentleman, who was admitted with bilateral pneumonia, possibly aspiration, had Pseudomonas previously. The patient had bronchoscopy yesterday by Dr. Ho. The patient is on mechanical ventilation. The patient is on broad spectrum IV antibiotics. During bronchoscopy of left lower lobe, there were significant mucoid and bloody secretions in the left lower lobe and lingula. Bronchoalveolar lavage was done. The cultures are showing gram-negative bacilli at this time. PAST MEDICAL HISTORY: Reviewed. REVIEW OF SYSTEMS: Could not be taken. CURRENT MEDICATIONS: Reviewed. PHYSICAL EXAMINATION: VITAL SIGNS: Pulse is 80, blood pressure 108/64, respirations 20. HEENT: Conjunctivae normal. CARDIOVASCULAR: S1, S2. RESPIRATIONS: Breath sounds diminished at the bases. Bilateral scattered rhonchi and crackles. ABDOMEN: Soft. NERVOUS SYSTEM: Nonfocal. LABORATORY DATA: Hemoglobin 7. Sodium 130, potassium 3.2, phosphorus 0.6. ASSESSMENT: 1. Bilateral pneumonia, possibly aspiration versus gram-negative with acute hypoxic respiratory failure, status post mechanical ventilation. 2. Chest pain with possible unstable angina, improved. 3. Anemia multifactorial. 4. Hypophosphatemia. 5. History of recent Pseudomonas pneumonia. 6. Tracheostomy. 7. On home TPN. 8. History of tracheal stenosis. 9. History of deep venous thrombosis. 10.History of Crohn's disease and profound immunosuppression. RECOMMENDATIONS: Recommended to continue current management and continue symptomatic treatment. Otherwise, the patient has symptomatic anemia. Hemoglobin has dropped steadily from 9.3 to 7 at this time. I would recommend 1 unit of transfusion. I would also recommend potassium supplementation and phosphorus supplementation also. Prognosis guarded. Further recommendations to follow. MMODL / IJN: [id number] /
[2024-06-23] MEDS: MVI, ADULT NO.4 WITH VIT K 10 ML, TRACE (CONC-1ML/DOSE) 1 ML in AMINO ACID 5%-D20W+LYTE... IV SCH (18:20)
[2024-06-24] MEDS: BENZOCAINE SPRAY 1 EACH MUCOUS MEM PRN (00:36)
[2024-06-24 05:08] LABS: Basophils # (A) 0.03 10*3/uL (0.00-0.10); Basophils % (A) 0.5 %; Eosinophils # (A) 0.26 10*3/uL (0.04-0.35); Eosinophils % (A) 4.5 %; HCT 26.2 % (39.6-50.0); HGB 7.7 g/dL (13.0-17.0); Lymphocytes # (A) 1.64 10*3/uL (0.90-5.00); Lymphocytes % (A) 28.1 %; MCH 24.9 pg (27.0-32.0); MCHC 29.4 g/dL (32.0-37.0); MCV 84.8 fL (80.0-97.0); Monocytes % (A) 8.6 %; Neutrophils # (A) 3.39 10*3/uL (1.80-7.70); Platelet Count 153 10*3/uL (140-440); RBC 3.09 10*6/uL (4.40-5.60); RDW 18.4 % (11.5-14.5); WBC 5.84 10*3/uL (4.50-10.00)
[2024-06-24 05:23] LABS: African American GFR (CKD) >90 (>60 ml/min/1.73 sqM); Anion Gap 6 mmol/L; Blood Urea Nitrogen 13 mg/dL (9-20); Calcium 8.3 mg/dL (8.4-10.2); Carbon Dioxide 26 mmol/L (22-30); Chloride 103 mmol/L (98-107); Glucose 118 mg/dL (74-99); Magnesium 1.9 mg/dL (1.6-2.3); Non-African American GFR(CKD) >90 (>60 ml/min/1.73 sqM); Potassium 3.2 mmol/L (3.5-5.1); Sodium 135 mmol/L (137-145)
[2024-06-24] MEDS ORDERED: Potassium Replacement Protocol 1 EACH MISC MISCELLANE PRN (06:26)
--- NOTE | 2024-06-24 06:37 | XR ---
EXAMINATION TYPE: XR chest 1V portable DATE OF EXAM: 06/24/2024 CLINICAL INDICATION: Male, 49 years old with history of chf, progress study. TECHNIQUE: Single AP portable semiupright view of the chest is obtained. COMPARISON: Chest x-ray from one day earlier and older studies FINDINGS: Stable tracheostomy tube. Stable left central venous catheter. Stable orogastric tube. Persistent bibasilar increased opacities. Cardiac silhouette size is stable. Osseous structures are intact. Surgical clips in the lower right neck are redemonstrated. IMPRESSION: 1. Persistent bibasilar acute infiltrates and/or atelectasis and likely small bilateral pleural effus ions. [facility], , 06/24/2024 6:34 AM
[2024-06-24] MEDS: POTASSIUM BICARBONATE/CIT AC 20 MEQ TABLET.EFF NG-TUBE SCH (06:47)
[2024-06-24] MEDS: MAGNESIUM SULFATE-D5W PMX 1 GM in DEXTROSE/WATER 1 100ML.BAG IVPB ONE (08:51)
[2024-06-24] MEDS: SODIUM PHOSPHATE 30 MMOL in DEXTROSE 5% IN WATER 250 ML IVPB ONE (10:25)
[2024-06-24] MEDS: MVI, ADULT NO.4 WITH VIT K 10 ML, TRACE (CONC-1ML/DOSE) 1 ML, POTASSIUM CHLORIDE 40 MEQ... IV SCH (12:14)
--- NOTE | 2024-06-24 13:08 | P.PN ---
Progress Note - Text Progress Note Date: 06/24/24 CHIEF COMPLAINT: Shortness of breath HISTORY OF PRESENT ILLNESS: Surgical service is following regards to possible bleeding around patient's stoma. He has had no further evidence of bleeding. Patient remains in the ICU. Hemoglobin is stable PHYSICAL EXAM: VITAL SIGNS: Reviewed. GENERAL: Well-developed in no acute distress. HEENT: Trach clean dry and intact ABDOMEN: Soft. Nondistended. Nontender. Ileostomy in place no blood noted in bag. Stool present NEUROLOGIC: Alert and oriented. Cranial nerves II through XII grossly intact. ASSESSMENT: 1. History of Crohn's disease with ileostomy. Concern for GI bleed. No evidence of active bleeding 2. History of tracheal stenosis PLAN: - Continue to follow - Continue to monitor for any signs or symptoms of bleeding - [facility] [phone]
--- NOTE | 2024-06-24 15:17 | P.PN ---
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 Patient is obese and he has developed chronic generalized weakness, respiratory insufficiency with recurrent pneumonias requiring previous intubation and mechanical ventilation. The patient has also been treated for episodes of pneumonias in the past including pseudomonal pneumonia earlier this year. He does have also an area of tracheal stenosis related to previous tracheal manipulation and tracheostomy tube insertion. Currently he has a permanent tracheostomy tube in place to secure his airways. 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 Following his most recent hospitalization in March 2024, the patient was [facility] and following that he was discharged home where he has been taking care of by family members. Since then, the patient has done well. The patient came into the emergency department as he has stated that he has been feeling more short of breath and his dyspnea is occurring in episodes. Nevertheless, he has remained hemodynamically stable. He remains on 35 to 40% trach collar without development of any significant respiratory secretions. Blood work has been essentially stable. The white cell count at time of admission was at 5.4 with a hemoglobin of 8.3 and a platelet count of 181. Sodium levels at 139, bicarb is at 33, BUN 23 with a creatinine of 0.35. Troponins were negative. LFTs are essentially within normal limits. Total protein was at 7.4 with an albumin of 3.5. The viral screen was negative in the emergency department. Also, the patient was given a chest x-ray that showed smaller lung volumes and poor respiratory effort. There is some cardiomegaly. No acute airspace disease or consolidation. His EKG showed a normal sinus mechanism. Based on that, the patient was hospitalized in the pulmonary consultation was requested. He was started on empiric antibiotic coverage with IV Rocephin. Noted the patient is bedridden. He has chronic muscle atrophy and contractures in his lower extremities. He remains on therapeutic dose of Lovenox 90 mg subcu every 12 hours. On 06/21/2024, the patient feels that something is obstructing his airways. At times he is feeling short of breath. No clear explanation. There may be some anatomic problems and obstruction in his trachea as during my early bronchoscopies, I noted that the patient has an area of tracheal stenosis at the site of previous tracheostomy tube insertion. I think it would be douglas to reevaluate this patient's airway right bronchoscopy and document patency of the airway. No significant respiratory secretions for now. No fever. No chills. Blood cultures are still negative. White cell count is 6.7, hemoglobin is 8.5, BUN is 12 with a creatinine of 0.36. He remains on a 40% trach collar. Remains on TPN for nutritional support Patient was seen today on06/22/24, patient was transferred to the ICU yesterday because he was not ventilating well with his tracheostomy and trach collar. Patient was placed on mechanical ventilation, however his tracheostomy is a cuffless trach, and he was still losing significant amount of volume while on mechanical ventilation. Today I had to change his tracheostomy to a different tracheostomy same size and length, however it has a cough on it and we could inflate the cough to prevent any further volume loss on mechanical ventilation. And I was able to do so at bedside. Chest x-ray clearly showed evidence of extensive left lower lobe airspace disease and the patient underwent bronchoscopy and BAL of the left lower lobe. In the meantime I went ahead after placing any tracheostomy and placed the patient and mechanical ventilation and on propofol. Patient is now on tidal volume of 500 rate of 20 FiO2 100% and PEEP of 5, ABG is pending. Earlier today, patient was requiring a bit of norepinephrine at 0.06 mcg/kg/min he is also on TPN at 75 cc/h. WBC count 6.2 hemoglobin 9.1. ABG earlier today showed a pO2 of 65 pCO2 93 pH of 7.16 and this was on trach collar. On mechanical ventilation with volume leak and loss patient had a pO2 of 91 pCO2 62 pH of 7.31 but as the day went by he was having more volume loss requiring a tracheostomy tube change. Basic metabolic profile is normal, renal profile is normal. Chest x-ray as noted earlier extensive infiltrate involving the left lower lobe noted. Patient was seen and evaluated today on 06/23/2024, patient remains in the ICU, intubated mechanically ventilated, patient did quite well since we had the tracheostomy changed to a cuffed tracheostomy in part same size. He is now on assist-control rate of 20 tidal volume 500 FiO2 35% and PEEP of 5 ABG showed a pO2 of 91 pCO2 62 pH of 7.31. Patient remains on TPN at 50 mL/h propofol at 20 mcg/kg/min norepinephrine is still needed at 0.12 mcg/kg/min patient remains on cefepime he is also on Lovenox 90 mg subcu every 12 hours. Labs today showed WBC of 6.49 hemoglobin of 7 potassium is a bit low at 3.2 otherwise electrolytes are normal renal profile is normal procalcitonin level is 0.59, C. difficile screen is negative chest x-ray showed significant improvement in his left lower lobe infiltrate Patient was seen today on 06/24/2024, remains in the ICU, intubated and mechanically ventilated. Patient is on assist-control rate of 20 tidal volume 500 FiO2 35% PEEP of 5. ABG was not done today. Patient remains on propofol at 30 mcg/kg/min TPN at 50 cc/h norepinephrine at 0.08 mcg/kg/min remains on cefepime. Sputum cultures showing gram-negative bacilli, BAL showed no growth, chest x-ray showed improvement in left lower lobe pneumonia. WBC count is 5.84 hemoglobin 7.7 electrolytes showed low potassium of 3.2 BUN is normal creatinine is normal, procalcitonin level on this admission was 0.59, C. difficile is negative. Objective - Vital Signs Vital signs: Vital Signs Temp 98.3 F 06/24/24 10:00 Pulse 73 06/24/24 15:00 Resp 20 06/24/24 15:00 BP 108/62 06/24/24 15:00 Pulse Ox 97 06/24/24 15:00 FiO2 35 06/24/24 12:45 Intake & Output 06/23/24 06/24/24 06/24/24 18:59 06:59 18:59 Intake Total 2074.892 8343.610 5859.134 Output Total 815 1390 940 Balance 1259.892 39.554 147.134 Weight 92.6 kg 97.3 kg Intake: IV 120 130 80 KVO 120 130 80 Intake, IV Titration 1814.892 016.409 3911.134 Amount Cefepime 2 gm In Sodium 100 Chloride 0.9% 100 ml @ 25 mls/hr IVPB Q8H [facility] Rx#: [id number] Magnesium Sulfate-D5w Pmx 100 1 gm In Dextrose/Water 1 100ml.bag @ 100 mls/hr IVPB ONCE ONE Rx#: [id number] Mvi, Adult No.4 with Vit 50 650 200 K 10 ml Trace (Conc-1Ml/ Dose) 1 ml In Amino Acid 5%-D20w+Lytes*E* 1,000 ml @ 50 mls/hr IV .[id number] [facility] Rx#:[id number] Mvi, Adult No.4 with Vit 400 K 10 ml Trace (Conc-1Ml/ Dose) 1 ml Potassium Chloride 40 meq In Amino Acid 5%-D20w+Lytes*E* 1, 000 ml @ 50 mls/hr IV . [id number] [facility] Rx#:[id number] Mvi, Adult No.4 with Vit 575 K 10 ml Trace (Conc-1Ml/ Dose) 1 ml Sodium Acetate 30 meq Sodium Phosphate 3 mmol Potassium Chloride 20 meq Calcium Gluconate 0.5 gm Magnesium Sulfate gm 1.5 gm In Amino Acids 5 %/Dextrose 20 % 1,000 ml @ 50 mls/hr IV .BY DURATION [facility] Rx#: [id number] Norepinephrine 8 mg In 220.300 139.554 Sodium Chloride 0.9% 250 ml @ 0.11 MCG/KG/MIN 19. 774 mls/hr IV .[id number] [facility] Rx#:[id number] Potassium Chloride 10 meq 400 In Water For Injection 1 100ml.bag @ 100 mls/hr IVPB Q1HR [facility] Rx#: [id number] Sodium Acetate 30 meq 75 Sodium Phosphate 3 mmol Potassium Chloride 20 meq Calcium Gluconate 0.5 gm Magnesium Sulfate gm 1.5 gm In Amino Acids 5 %/ Dextrose 20 % 1,000 ml @ 50 mls/hr IV .BY DURATION [facility] Rx#:[id number] Sodium Phosphate 30 mmol 250 In Dextrose 5% in Water 250 ml @ 65 mls/hr IVPB ONCE ONE Rx#:[id number] Sodium Phosphate 60 mmol 250 In Dextrose 5% in Water 250 ml @ 45 mls/hr IVPB ONCE ONE Rx#:[id number] propofoL 1,000 mg In 144.592 200 57.134 Empty Bag 1 bag @ 15 MCG/ KG/MIN 8.361 mls/hr IV . [id number] [facility] Rx#:[id number] Blood Product 0 310 Rc Irr As1 Unit 0 310 [id number] Other 140 Output: Urine 815 790 940 Stool 600 Other: Voiding Method Indwelling Catheter Indwelling Catheter Indwelling Catheter - Exam GENERAL: A 48-year-old male patient, resting in bed, intubated and mechanically ventilated. Arousable, follows instructions Head exam was generally normal. There was no scleral icterus or corneal arcus. Mucous membranes were moist. HEENT: No scleral icterus. No conjunctival pallor. Normocephalic, atraumatic. Tracheostomy tube is in a good location. The patient has a subclavian left triple-lumen catheter in place. CARDIOVASCULAR: S1 and S2 present. No murmurs, rubs, or gallops. PULMONARY: Diminished breath sounds were bilaterally. No wheezes rhonchi or crackles, scattered rhonchi the patient's breath sounds are quite diminished bilaterally. ABDOMEN: Soft, nontender, nondistended, normoactive bowel sounds. No palpable o rganomegaly. Functioning ileostomy. 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 EXTREMITIES: No cyanosis, clubbing, or pedal edema. Right-sided BKA noted. NEUROLOGICAL: Profound weakness in all 4 extremities, weak cough, extensive muscle atrophy in all 4 extremities. Patient is awake, follows instructions. SKIN: No rashes. No open wounds. - Labs CBC & Chem 7: 06/24/24 04:41 06/24/24 04:41 Labs: Abnormal Lab Results - Last 24 Hours (Table) 06/23/24 06/24/24 06/24/24 Range/Units 16:25 04:41 04:41 RBC 3.09 L (4.40-5.60) 10*6/uL Hgb 7.7 L (13.0-17.0) g/dL Hct 26.2 L (39.6-50.0) % MCH 24.9 L (27.0-32.0) pg MCHC 29.4 L (32.0-37.0) g/dL Sodium 135 L (137-145) mmol/L Potassium 3.2 L (3.5-5.1) mmol/L Creatinine 0.32 L (0.66-1.25) mg/dL Glucose 118 H (74-99) mg/dL Calcium 8.3 L (8.4-10.2) mg/dL Phosphorus 2.0 L (2.5-4.5) mg/dL Crossmatch See Detail Microbiology - Last 24 Hours (Table) 06/21/24 21:41 Gram Stain - Preliminary Sputum Sputum Culture - Preliminary Gram Neg Bacilli Corynebacterium striatum group 06/22/24 11:44 Blood Culture - Preliminary Blood Assessment and Plan Assessment: Impression: Acute on chronic hypoxic and hypercapnic respiratory failure, multifactorial and I strongly suspect a left lower lobe pneumonia, secondary to gram-negative infection based on sputum cultures Acute left lower lobe pneumonia Tracheal stenosis at the site of the previously inserted tracheostomy tube, visualized on most recent bronchoscopy. Previous history of recurrent ventilator dependent respiratory failure, secondary to pneumonia and mucous plugging. The patient has undergone previous bronchoscopies and cultures from bronchoscopy on 12/31/2023 was positive for MRSA and subsequent bronchoscopy on 01/03/2024 was positive for Klebsiella pneumoniae and Bella glabrata. Most recent sputum analysis from 02/26/2024 and 03/17/2024 was positive for Pseudomonas aeruginosa and the patient was treated successfully. Status post bronchoscopy and BAL of left lower lobe on 06/22/2024 Previous episodes of sepsis secondary to pneumonia Crohn's disease, with previous complication of bowel perforation s/p colectomy and diverting ileostomy. The patient also has had previous history of abdominal wall bleeding there is currently inactive and stable. The patient has a high output ileostomy TPN for nutritional support Tracheobronchomalacia History of DVT, on therapeutic dose of Lovenox CVA/TIA, with residual left-sided weakness Right BKA History of asystole/cardiac arrest in 2021 Hypotension requiring norepinephrine, possible sepsis and septic shock. Recommendation: Continue to monitor in ICU May give the patient a trial of pressure support and CPAP today. Off propofol. Continue ventilatory support Continue hemodynamic support patient is requiring pressors/norepinephrine Continue antibiotics Continue bronchodilators GI DVT prophylaxis Continue TPN Keep close watch on all cultures Patient remains critically ill Critical care time is over 33 minutes Will continue to follow, in the ICU Time with Patient: Greater than 30
[2024-06-25] MEDS: IPRATROPIUM-ALBUTEROL 3 ML NEB INHALATION PRN (03:35)
--- NOTE | 2024-06-25 04:20 | PN ---
PROGRESS NOTE DATE OF SERVICE: 06/24/2024 SUBJECTIVE: This is a 49-year-old gentleman, who was admitted with bilateral pneumonia and aspiration, is being closely monitored. The patient is on mechanical ventilation. The patient had bronchoscopy, it showed thick secretions on 1 side and the bronchial washing cultures are pending at this time. Sputum culture previously showed gram- negative bacilli and Corynebacterium striatum growth. PAST MEDICAL HISTORY: Reviewed. REVIEW OF SYSTEMS: Could not be taken. CURRENT MEDICATIONS: Reviewed. PHYSICAL EXAMINATION: VITAL SIGNS: Pulse is 79, blood pressure 102/58, respirations 20. HEENT: Conjunctivae normal. CARDIOVASCULAR: S1, S2. RESPIRATIONS: Breath sounds diminished at the bases. Bilateral scattered rhonchi and crackles. ABDOMEN: Soft. NERVOUS SYSTEM: Nonfocal. LABORATORY DATA: Hemoglobin 7.7, potassium 3.2, and phosphorus improved to 2. ASSESSMENT: 1. Bilateral pneumonia, possibly aspiration versus gram-negative with acute hypoxic respiratory failure, status post mechanical ventilation. 2. Status post bronchoscopy. 3. Corynebacterium striatum and as well as a gram-negative bacilli from the sputum. 4. Anemia multifactorial. 5. Hypophosphatemia. 6. History of recent Pseudomonas pneumonia. 7. Tracheostomy. 8. On TPN. 9. History of tracheal stenosis. 10.History of deep venous thrombosis. 11.History of Crohn's disease with profound immunosuppression. RECOMMENDATIONS: Recommended to continue current management and continue symptomatic treatment. Continue with antibiotics. Await final culture report. Otherwise, continue with mechanical ventilation. Continue with rest of the medications, bronchodilators. The patient is on cefepime. Guarded prognosis. Further recommendations to follow. MMODL / IJN: [id number] /
[2024-06-25 05:09] LABS: Basophils # (A) 0.04 10*3/uL (0.00-0.10); Basophils % (A) 0.7 %; Eosinophils # (A) 0.28 10*3/uL (0.04-0.35); Eosinophils % (A) 5.2 %; HCT 28.2 % (39.6-50.0); HGB 8.2 g/dL (13.0-17.0); Lymphocytes # (A) 1.79 10*3/uL (0.90-5.00); MCH 24.9 pg (27.0-32.0); MCHC 29.1 g/dL (32.0-37.0); MCV 85.7 fL (80.0-97.0); Monocytes # (A) 0.49 10*3/uL (0.20-1.00); Neutrophils % (A) 51.7 %; Platelet Count 155 10*3/uL (140-440); RBC 3.29 10*6/uL (4.40-5.60); RDW 18.1 % (11.5-14.5); WBC 5.42 10*3/uL (4.50-10.00)
[2024-06-25 05:32] LABS: African American GFR (CKD) >90 (>60 ml/min/1.73 sqM); Anion Gap 9 mmol/L; Blood Urea Nitrogen 11 mg/dL (9-20); Calcium 8.8 mg/dL (8.4-10.2); Carbon Dioxide 24 mmol/L (22-30); Chloride 103 mmol/L (98-107); Glucose 116 mg/dL (74-99); Non-African American GFR(CKD) >90 (>60 ml/min/1.73 sqM); Phosphorus 2.4 mg/dL (2.5-4.5); Potassium 3.9 mmol/L (3.5-5.1); Sodium 136 mmol/L (137-145)
--- NOTE | 2024-06-25 05:49 | XR ---
EXAMINATION TYPE: XR chest 1V portable DATE OF EXAM: 06/25/2024 CLINICAL INDICATION: Male, 49 years old with history of mechanical ventilation, progress study. TECHNIQUE: Single AP portable semiupright view of the chest is obtained. COMPARISON: Chest x-ray from one day earlier and older studies FINDINGS: Stable tracheostomy tube. Stable left central venous catheter. Stable orogastric tube. Persistent bibasilar increased opacities. Cardiac silhouette size is stable. Osseous structures are intact. Surgical clips in the lower right neck are redemonstrated. IMPRESSION: 1. Persistent bibasilar acute infiltrates and/or atelectasis and small bilateral pleural effusions. No significant change from one day earlier. [facility], , 06/25/2024 5:47 AM
[2024-06-25] MEDS: POTASSIUM BICARBONATE/CIT AC 20 MEQ TABLET.EFF NG-TUBE SCH (06:21)
[2024-06-25] MEDS: SODIUM PHOSPHATE 15 MMOL in DEXTROSE 5% IN WATER 250 ML IVPB ONE (08:52)
--- NOTE | 2024-06-25 13:09 | P.PN ---
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 Patient is obese and he has developed chronic generalized weakness, respiratory insufficiency with recurrent pneumonias requiring previous intubation and mechanical ventilation. The patient has also been treated for episodes of pneumonias in the past including pseudomonal pneumonia earlier this year. He does have also an area of tracheal stenosis related to previous tracheal manipulation and tracheostomy tube insertion. Currently he has a permanent tracheostomy tube in place to secure his airways. 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 Following his most recent hospitalization in March 2024, the patient was discharged to [facility] and following that he was discharged home where he has been taking care of by family members. Since then, the patient has done well. The patient came into the emergency department as he has stated that he has been feeling more short of breath and his dyspnea is occurring in episodes. Nevertheless, he has remained hemodynamically stable. He remains on 35 to 40% trach collar without development of any significant respiratory secretions. Blood work has been essentially stable. The white cell count at time of admission was at 5.4 with a hemoglobin of 8.3 and a platelet count of 181. Sodium levels at 139, bicarb is at 33, BUN 23 with a creatinine of 0.35. Troponins were negative. LFTs are essentially within normal limits. Total protein was at 7.4 with an albumin of 3.5. The viral screen was negative in the emergency department. Also, the patient was given a chest x-ray that showed smaller lung volumes and poor respiratory effort. There is some cardiomegaly. No acute airspace disease or consolidation. His EKG showed a normal sinus mechanism. Based on that, the patient was hospitalized in the pulmonary consultation was requested. He was started on empiric antibiotic coverage with IV Rocephin. Noted the patient is bedridden. He has chronic muscle atrophy and contractures in his lower extremities. He remains on therapeutic dose of Lovenox 90 mg subcu every 12 hours. On 06/21/2024, the patient feels that something is obstructing his airways. At times he is feeling short of breath. No clear explanation. There may be some anatomic problems and obstruction in his trachea as during my early bronchoscopies, I noted that the patient has an area of tracheal stenosis at the site of previous tracheostomy tube insertion. I think it would be douglas to reevaluate this patient's airway right bronchoscopy and document patency of the airway. No significant respiratory secretions for now. No fever. No chills. Blood cultures are still negative. White cell count is 6.7, hemoglobin is 8.5, BUN is 12 with a creatinine of 0.36. He remains on a 40% trach collar. Remains on TPN for nutritional support Patient was seen today on06/22/24, patient was transferred to the ICU yesterday because he was not ventilating well with his tracheostomy and trach collar. Patient was placed on mechanical ventilation, however his tracheostomy is a cuffless trach, and he was still losing significant amount of volume while on mechanical ventilation. Today I had to change his tracheostomy to a different tracheostomy same size and length, however it has a cough on it and we could inflate the cough to prevent any further volume loss on mechanical ventilation. And I was able to do so at bedside. Chest x-ray clearly showed evidence of extensive left lower lobe airspace disease and the patient underwent bronchoscopy and BAL of the left lower lobe. In the meantime I went ahead after placing any tracheostomy and placed the patient and mechanical ventilation and on propofol. Patient is now on tidal volume of 500 rate of 20 FiO2 100% and PEEP of 5, ABG is pending. Earlier today, patient was requiring a bit of norepinephrine at 0.06 mcg/kg/min he is also on TPN at 75 cc/h. WBC count 6.2 hemoglobin 9.1. ABG earlier today showed a pO2 of 65 pCO2 93 pH of 7.16 and this was on trach collar. On mechanical ventilation with volume leak and loss patient had a pO2 of 91 pCO2 62 pH of 7.31 but as the day went by he was having more volume loss requiring a tracheostomy tube change. Basic metabolic profile is normal, renal profile is normal. Chest x-ray as noted earlier extensive infiltrate involving the left lower lobe noted. Patient was seen and evaluated today on 06/23/2024, patient remains in the ICU, intubated mechanically ventilated, patient did quite well since we had the tracheostomy changed to a cuffed tracheostomy in part same size. He is now on assist-control rate of 20 tidal volume 500 FiO2 35% and PEEP of 5 ABG showed a pO2 of 91 pCO2 62 pH of 7.31. Patient remains on TPN at 50 mL/h propofol at 20 mcg/kg/min norepinephrine is still needed at 0.12 mcg/kg/min patient remains on cefepime he is also on Lovenox 90 mg subcu every 12 hours. Labs today showed WBC of 6.49 hemoglobin of 7 potassium is a bit low at 3.2 otherwise electrolytes are normal renal profile is normal procalcitonin level is 0.59, C. difficile screen is negative chest x-ray showed significant improvement in his left lower lobe infiltrate Patient was seen today on 06/24/2024, remains in the ICU, intubated and mechanically ventilated. Patient is on assist-control rate of 20 tidal volume 500 FiO2 35% PEEP of 5. ABG was not done today. Patient remains on propofol at 30 mcg/kg/min TPN at 50 cc/h norepinephrine at 0.08 mcg/kg/min remains on cefepime. Sputum cultures showing gram-negative bacilli, BAL showed no growth, chest x-ray showed improvement in left lower lobe pneumonia. WBC count is 5.84 hemoglobin 7.7 electrolytes showed low potassium of 3.2 BUN is normal creatinine is normal, procalcitonin level on this admission was 0.59, C. difficile is negative. Seen today on 06/25/2024, patient remains in the ICU, intubated and mechanically ventilated, patient has a tracheostomy in place, he is on assist-control rate of 20 tidal volume 500 FiO2 35% and PEEP of 5 no ABG was done today. Chest x-ray continues to show improvement in his left lower lobe infiltrate/pneumonia WBC count is 5.4 hemoglobin 8.2 platelets are 155 electrolytes are normal renal profile is normal patient remains on nutritional support/TPN, he is on norepinephrine 0.06 mcg/kg/min propofol at 10 mcg/kg/min TPN at 50 cc/h. Remains on cefepime for his gram-negative pneumonia, patient failed pressure support and CPAP yesterday, he lasted less than half an hour. Will try again today with a pressure support of 12 or 14 and CPAP, and if he does well with pressure support and CPAP, may eventually changed the patient to a trach collar as he was prior to all of this. Objective - Vital Signs Vital signs: Vital Signs Temp 98.3 F 06/25/24 12:00 Pulse 85 06/25/24 12:30 Resp 24 06/25/24 12:30 BP 139/74 06/25/24 12:30 Pulse Ox 100 06/25/24 12:30 FiO2 35 06/25/24 12:00 Intake & Output 06/24/24 06/25/24 06/25/24 18:59 06:59 18:59 Intake Total 9785.852 1891.455 1397.386 Output Total 1135 1470 280 Balance 182.134 -397.564 1266.386 Weight 96.7 kg Intake: IV 110 130 10 KVO 110 130 10 Intake, IV Titration 0778.453 2187.455 1387.386 Amount Magnesium Sulfate-D5w Pmx 100 1 gm In Dextrose/Water 1 100ml.bag @ 100 mls/hr IVPB ONCE ONE Rx#: [id number] Mvi, Adult No.4 with Vit 150 K 10 ml Trace (Conc-1Ml/ Dose) 1 ml In Amino Acid 5%-D20w+Lytes*E* 1,000 ml @ 50 mls/hr IV .[id number] [facility] Rx#:[id number] Mvi, Adult No.4 with Vit 952 843 1455 K 10 ml Trace (Conc-1Ml/ Dose) 1 ml Potassium Chloride 40 meq In Amino Acid 5%-D20w+Lytes*E* 1, 000 ml @ 50 mls/hr IV . [id number] [facility] Rx#:[id number] Norepinephrine 8 mg In 350.178 71.874 Sodium Chloride 0.9% 250 ml @ 0.11 MCG/KG/MIN 19. 774 mls/hr IV .[id number] [facility] Rx#:[id number] Sodium Phosphate 15 mmol 250 In Dextrose 5% in Water 250 ml @ 127.5 mls/hr IVPB ONCE ONE Rx#: [id number] Sodium Phosphate 30 mmol 250 In Dextrose 5% in Water 250 ml @ 65 mls/hr IVPB ONCE ONE Rx#:[id number] propofoL 1,000 mg In 157.134 72.277 34.512 Empty Bag 1 bag @ 15 MCG/ KG/MIN 8.361 mls/hr IV . [id number] [facility] Rx#:[id number] Output: Urine 1135 670 280 Stool 800 Other: Voiding Method Indwelling Catheter Indwelling Catheter Indwelling Catheter - Exam GENERAL: A 48-year-old male patient, resting in bed, intubated and mechanically ventilated. Awake, on propofol, follows simple instructions Head exam was generally normal. There was no scleral icterus or corneal arcus. Mucous membranes were moist. HEENT: No scleral icterus. No conjunctival pallor. Normocephalic, atraumatic. Tracheostomy tube is in a good location. The patient has a subclavian left triple-lumen catheter in place. CARDIOVASCULAR: S1 and S2 present. No murmurs, rubs, or gallops. PULMONARY: Diminished breath sounds were bilaterally. No wheezes rhonchi or crackles, scattered rhonchi the patient's breath sounds are quite diminished bi laterally. ABDOMEN: Soft, nontender, nondistended, normoactive bowel sounds. No palpable organomegaly. Functioning ileostomy. 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 EXTREMITIES: No cyanosis, clubbing, or pedal edema. Right-sided BKA noted. NEUROLOGICAL: Profound weakness in all 4 extremities, weak cough, extensive muscle atrophy in all 4 extremities. Patient is awake, follows instructions. In spite of being on low-dose propofol. SKIN: No rashes. No open wounds. - Labs CBC & Chem 7: 06/25/24 04:30 06/25/24 04:30 Labs: Abnormal Lab Results - Last 24 Hours (Table) 06/25/24 06/25/24 Range/Units 04:30 04:30 RBC 3.29 L (4.40-5.60) 10*6/uL Hgb 8.2 L (13.0-17.0) g/dL Hct 28.2 L (39.6-50.0) % MCH 24.9 L (27.0-32.0) pg MCHC 29.1 L (32.0-37.0) g/dL Sodium 136 L (137-145) mmol/L Creatinine 0.36 L (0.66-1.25) mg/dL Glucose 116 H (74-99) mg/dL Phosphorus 2.4 L (2.5-4.5) mg/dL Microbiology - Last 24 Hours (Table) 06/19/24 17:47 Blood Culture - Final Blood 06/22/24 11:44 Blood Culture - Preliminary Blood 06/21/24 21:41 Gram Stain - Preliminary Sputum Sputum Culture - Preliminary Gram Neg Bacilli Corynebacterium striatum group Assessment and Plan Assessment: Impression: Acute on chronic hypoxic and hypercapnic respiratory failure, multifactorial Acute left lower lobe pneumonia Tracheal stenosis at the site of the previously inserted tracheostomy tube, visualized on most recent bronchoscopy. Previous history of recurrent ventilator dependent respiratory failure, secondary to pneumonia and mucous plugging. The patient has undergone previous bronchoscopies and cultures from bronchoscopy on 12/31/2023 was positive for MRSA and subsequent bronchoscopy on 01/03/2024 was positive for Klebsiella pneumoniae and Bella glabrata. Most recent sputum analysis from 02/26/2024 and 03/17/2024 was positive for Pseudomonas aeruginosa and the patient was treated successfully. Status post bronchoscopy and BAL of left lower lobe on 06/22/2024, with improvement noted in his left lower lobe pneumonia cultures/BAL from the bronchoscopy are negative although sputum earlier was positive for gram-negative bacilli. Previous episodes of sepsis secondary to pneumonia Crohn's disease, with previous complication of bowel perforation s/p colectomy and diverting ileostomy. The patient also has had previous history of abdominal wall bleeding there is currently inactive and stable. The patient has a high output ileostomy TPN for nutritional support Tracheobronchomalacia History of DVT, on therapeutic dose of Lovenox CVA/TIA, with residual left-sided weakness Right BKA History of asystole/cardiac arrest in 2021 Hypotension requiring norepinephrine, possible sepsis and septic shock. Recommendation: Continue ventilatory support will try again pressure support and CPAP to see if he tolerates today. Continue to monitor in ICU Continue hemodynamic support patient is requiring pressors/norepinephrine Continue antibiotics Continue bronchodilators Continue nutritional support/TPN GI DVT prophylaxis Continue TPN Patient remains critically ill Critical care time is over 32 minutes Will continue to follow Time with Patient: Greater than 30
--- NOTE | 2024-06-25 14:38 | P.PN ---
Subjective Progress Note Date: 06/25/24 SURGICAL PROGRESS NOTE CHIEF COMPLAINT: Shortness of breath HISTORY OF PRESENT ILLNESS: Surgical service is following regards to possible bleeding around patient's stoma. He has had no further evidence of bleeding. Hemoglobin remains stable. It has gone up from 7.7-8.2. PHYSICAL EXAM: VITAL SIGNS: Reviewed. GENERAL: Well-developed in no acute distress. HEENT: Trach clean dry and intact ABDOMEN: Soft. Nondistended. Nontender. Ileostomy in place no blood noted in bag. Stool present NEUROLOGIC: Alert and oriented. Cranial nerves II through XII grossly intact. ASSESSMENT: 1. History of Crohn's disease with ileostomy. Concern for GI bleed. No evidence of active bleeding 2. History of tracheal stenosis PLAN: - No surgical intervention planned - Hemoglobin stable Physician Auger Operator note has been reviewed by physician. Signing provider agrees with the documented findings, assessment, and plan of care. Attestation Patient seen and examined at bedside. No active bleeding through the ostomy. Hemoglobin continues to remain stable after 1 unit packed red blood cell. Currently, no concern for additional GI bleeding. Please call surgical service for any reevaluation should his clinical status change. Milton Marrufo, Objective - Vital Signs Vital signs: Vital Signs Temp 98.3 F 06/25/24 12:00 Pulse 86 06/25/24 14:00 Resp 22 06/25/24 14:00 BP 107/58 06/25/24 14:00 Pulse Ox 99 06/25/24 14:00 FiO2 35 06/25/24 13:26 Intake & Output 06/24/24 06/25/24 06/25/24 18:59 06:59 18:59 Intake Total 5809.660 5705.455 1528.680 Output Total 1135 1470 420 Balance 182.134 -989.045 5895.680 Weight 96.7 kg Intake: IV 110 130 30 KVO 110 130 30 Intake, IV Titration 9504.587 3072.455 1498.680 Amount Cefepime 2 gm In Sodium 100 Chloride 0.9% 100 ml @ 25 mls/hr IVPB Q8H ON LICENSE OF [facility] Rx#: [id number] Magnesium Sulfate-D5w Pmx 100 1 gm In Dextrose/Water 1 100ml.bag @ 100 mls/hr IVPB ONCE ONE Rx#: [id number] Mvi, Adult No.4 with Vit 150 K 10 ml Trace (Conc-1Ml/ Dose) 1 ml In Amino Acid 5%-D20w+Lytes*E* 1,000 ml @ 50 mls/hr IV .[id number] [facility] LICENSE OF [facility] Rx#:[id number] Mvi, Adult No.4 with Vit 566 028 2819 K 10 ml Trace (Conc-1Ml/ Dose) 1 ml Potassium Chloride 40 meq In Amino Acid 5%-D20w+Lytes*E* 1, 000 ml @ 50 mls/hr IV . [id number] ON LICENSE OF [facility] Rx#:[id number] Norepinephrine 8 mg In 350.178 83.168 Sodium Chloride 0.9% 250 ml @ 0.11 MCG/KG/MIN 19. 774 mls/hr IV .Q13H3M [facility] LICENSE OF [facility] Rx#:[id number] Sodium Phosphate 15 mmol 250 In Dextrose 5% in Water 250 ml @ 127.5 mls/hr IVPB ONCE ONE Rx#: [id number] Sodium Phosphate 30 mmol 250 In Dextrose 5% in Water 250 ml @ 65 mls/hr IVPB ONCE ONE Rx#:[id number] propofoL 1,000 mg In 157.134 72.277 34.512 Empty Bag 1 bag @ 15 MCG/ KG/MIN 8.361 mls/hr IV . [id number] [facility] LICENSE OF [facility] Rx#:[id number] Output: Urine 1135 670 420 Stool 800 Other: Voiding Method Indwelling Catheter Indwelling Catheter Indwelling Catheter - Labs CBC & Chem 7: 06/26/24 03:09 06/26/24 03:09 Labs: Abnormal Lab Results - Last 24 Hours (Table) 06/25/24 06/25/24 Range/Units 04:30 04:30 RBC 3.29 L (4.40-5.60) 10*6/uL Hgb 8.2 L (13.0-17.0) g/dL Hct 28.2 L (39.6-50.0) % MCH 24.9 L (27.0-32.0) pg MCHC 29.1 L (32.0-37.0) g/dL Sodium 136 L (137-145) mmol/L Creatinine 0.36 L (0.66-1.25) mg/dL Glucose 116 H (74-99) mg/dL Phosphorus 2.4 L (2.5-4.5) mg/dL Microbiology - Last 24 Hours (Table) 06/21/24 21:41 Gram Stain - Final Sputum Sputum Culture - Final Corynebacterium striatum group Pseudomonas aeruginosa 06/22/24 15:00 Gram Stain - Preliminary Bronchoalviolar Lavage - Right Bronchial Washings Culture - Preliminary Pseudomonas aeruginosa 06/19/24 17:47 Blood Culture - Final Blood 06/22/24 11:44 Blood Culture - Preliminary Blood
--- NOTE | 2024-06-25 15:48 | P.PN ---
Subjective Patient admitted for bilateral cramping due to pneumonia gram-negative organism is not identified yet patient had Pseudomonas in the past patient underwent bronchoscopy patient remains on mechanical ventilation broad-spectrum antibiotics patient has a tracheostomy in place. Patient underwent bronchoalveolar lavage. PHYSICAL EXAMINATION: GENERAL: Intubated sedated. HEENT: Pupils are round and equally reacting to light. EOMI. No scleral icterus. No conjunctival pallor. Normocephalic, atraumatic. No pharyngeal erythema. No thyromegaly. CARDIOVASCULAR: S1 and S2 present. No murmurs, rubs, or gallops. PULMONARY: Chest is clear to auscultation, no wheezing or crackles. ABDOMEN: Soft, nontender, nondistended, normoactive bowel sounds. No palpable organomegaly. MUSCULOSKELETAL: No joint swelling or deformity. EXTREMITIES: No cyanosis, clubbing, or pedal edema. NEUROLOGICAL: Sedated at this time SKIN: No rashes. Assessment and plan Bilateral gram-negative pneumonia possibility of aspiration patient is on broad- spectrum antibiotics cefepime infectious disease and multiple other consultants are following the patient - Acute respiratory failure requiring mechanical ventilation status post bronchoalveolar lavage lavage cultures are showing gram-negative bacilli. - Crohn's disease with colostomy in the past patient is presently on TPN - Tracheobronchomalacia - CVA TIA in the past - History of DVT for which patient is on anticoagulation DVT prophylaxis: On full anticoagulation for history of DVT in the past Objective - Vital Signs Vital signs: Vital Signs Temp 98.3 F 06/25/24 12:00 Pulse 90 06/25/24 15:15 Resp 29 H 06/25/24 15:15 BP 99/52 06/25/24 15:15 Pulse Ox 100 06/25/24 15:15 FiO2 35 06/25/24 13:26 Intake & Output 06/24/24 06/25/24 06/25/24 18:59 06:59 18:59 Intake Total 6060.864 0478.455 1539.939 Output Total 1135 1470 460 Balance 182.134 -973.550 6235.939 Weight 96.7 kg Intake: IV 110 130 40 KVO 110 130 40 Intake, IV Titration 6565.007 0009.455 1499.939 Amount Cefepime 2 gm In Sodium 100 Chloride 0.9% 100 ml @ 25 mls/hr IVPB Q8H [facility] Rx#: [id number] Magnesium Sulfate-D5w Pmx 100 1 gm In Dextrose/Water 1 100ml.bag @ 100 mls/hr IVPB ONCE ONE Rx#: [id number] Mvi, Adult No.4 with Vit 150 K 10 ml Trace (Conc-1Ml/ Dose) 1 ml In Amino Acid 5%-D20w+Lytes*E* 1,000 ml @ 50 mls/hr IV .[id number] [facility] Rx#:[id number] Mvi, Adult No.4 with Vit 070 378 6519 K 10 ml Trace (Conc-1Ml/ Dose) 1 ml Potassium Chloride 40 meq In Amino Acid 5%-D20w+Lytes*E* 1, 000 ml @ 50 mls/hr IV . [id number] [facility] Rx#:[id number] Norepinephrine 8 mg In 350.178 84.427 Sodium Chloride 0.9% 250 ml @ 0.11 MCG/KG/MIN 19. 774 mls/hr IV .Q13H3M [facility] Rx#:[id number] Sodium Phosphate 15 mmol 250 In Dextrose 5% in Water 250 ml @ 127.5 mls/hr IVPB ONCE ONE Rx#: [id number] Sodium Phosphate 30 mmol 250 In Dextrose 5% in Water 250 ml @ 65 mls/hr IVPB ONCE ONE Rx#:[id number] propofoL 1,000 mg In 157.134 72.277 34.512 Empty Bag 1 bag @ 15 MCG/ KG/MIN 8.361 mls/hr IV . [id number] [facility] Rx#:[id number] Output: Urine 1135 670 460 Stool 800 Other: Voiding Method Indwelling Catheter Indwelling Catheter Indwelling Catheter - Labs CBC & Chem 7: 06/25/24 04:30 06/25/24 04:30 Labs: Abnormal Lab Results - Last 24 Hours (Table) 06/25/24 06/25/24 Range/Units 04:30 04:30 RBC 3.29 L (4.40-5.60) 10*6/uL Hgb 8.2 L (13.0-17.0) g/dL Hct 28.2 L (39.6-50.0) % MCH 24.9 L (27.0-32.0) pg MCHC 29.1 L (32.0-37.0) g/dL Sodium 136 L (137-145) mmol/L Creatinine 0.36 L (0.66-1.25) mg/dL Glucose 116 H (74-99) mg/dL Phosphorus 2.4 L (2.5-4.5) mg/dL Microbiology - Last 24 Hours (Table) 06/21/24 21:41 Gram Stain - Final Sputum Sputum Culture - Final Corynebacterium striatum group Pseudomonas aeruginosa 06/22/24 15:00 Gram Stain - Preliminary Bronchoalviolar Lavage - Right Bronchial Washings Culture - Preliminary Pseudomonas aeruginosa 06/19/24 17:47 Blood Culture - Final Blood 06/22/24 11:44 Blood Culture - Preliminary Blood
[2024-06-25] MEDS: CEFTAZIDIME/AVIBACTAM 2.5 GM in SODIUM CHLORIDE 0.9% 100 ML IVPB SCH (23:47)
[2024-06-26 03:47] LABS: Ionized Calcium 4.8 mg/dL (4.5-5.3)
[2024-06-26 03:55] LABS: African American GFR (CKD) >90 (>60 ml/min/1.73 sqM); Anion Gap 4 mmol/L; Blood Urea Nitrogen 13 mg/dL (9-20); Calcium 8.6 mg/dL (8.4-10.2); Carbon Dioxide 27 mmol/L (22-30); Chloride 104 mmol/L (98-107); Glucose 109 mg/dL (74-99); Magnesium 1.9 mg/dL (1.6-2.3); Non-African American GFR(CKD) >90 (>60 ml/min/1.73 sqM); Phosphorus 2.3 mg/dL (2.5-4.5); Sodium 135 mmol/L (137-145)
[2024-06-26 07:57] LABS: HGB 7.6 g/dL (13.0-17.0); MCH 25.7 pg (27.0-32.0); MCHC 29.2 g/dL (32.0-37.0); MCV 87.8 fL (80.0-97.0); Mean Platelet Volume 12.3 fL (9.5-12.2); Platelet Count 139 10*3/uL (140-440); RBC 2.96 10*6/uL (4.40-5.60); RDW 18.4 % (11.5-14.5); WBC 4.72 10*3/uL (4.50-10.00)
--- NOTE | 2024-06-26 10:03 | XR ---
EXAMINATION TYPE: XR chest 1V portable DATE OF EXAM: 06/26/2024 9:51 AM COMPARISON: Chest radiographs from 06/25/2024 CLINICAL INDICATION: Male, 49 years old with history of pneumonia; TECHNIQUE: XR chest 1V portable Frontal view of the chest. FINDINGS: Lungs/Pleura: Low lung volumes are present. There is no evidence of pleural effusion, focal consolida tion, or pneumothorax. Pulmonary vascularity: Unremarkable. Heart/mediastinum: Cardiomediastinal silhouette is unremarkable. Musculoskeletal: No acute osseous pathology. Other findings: None Lines/Tubes: Tracheostomy cannula tip projecting over the trachea. Nasogastric tube with its distal tip and side-port projecting under the diaphragm. Left internal jugular central venous catheter with distal tip at the cavoatrial junction. IMPRESSION: Support line and tubes in appropriate position. Low lung volumes with atelectasis changes. [facility], , 06/26/2024 10:00 AM
[2024-06-26] MEDS: SODIUM PHOSPHATE 15 MMOL in DEXTROSE 5% IN WATER 250 ML IVPB ONE (10:19)
--- NOTE | 2024-06-26 12:02 | CDI ---
Documentation Clarification Form Date: 06/26/2024 10:48:00 AM From: Gisselle Philippe RN, CCDS Phone: [phone] Admit Date: 06/22/2024 06:38:00 AM Patient Name: Ponce Beckett Visit Number: [id number] Discharge Date: ATTENTION: The Clinical Documentation Specialists (CDI) and [facility] Coding Staff appreciate your assistance in clarifying documentation. Please respond to the clarification below the line at the bottom and electronically sign. The CDI & [facility] Coding staff will review the response and follow-up if needed. Please note: Queries are made part of the Legal Health Record. If you have any questions, please contact the author of this message via ITS. DoctorRoxy Hassan 06/20/24 attending documented in the progress note. Also recommend Infectious Disease evaluation for possible sepsis present on admission but is not noted in subsequent documentation. Clarification is requested. History/Risk Factors: CVA/TIA, (DVT) Shiley tracheostomy tube in place. Tracheobronchomalacia, Chronic hypoxic/hypercapnic respiratory failure Clinical Indicators: 06/22 (full admit) patient did have worsening of his respiratory status. Has been ruled in for bilateral gram-negative pneumonia possibility of aspiration. 06/22 (08:00 83/41 88 20 100 (AX) 06/22 Labs: WBC 6.2 HGB 9.1 Procalcitonin 0.59 06/22 CXR: Cardiomegaly. Left lower lobe opacity. Mild left effusion. 06/23 CXR: New orogastric tube satisfactory in position. 2. Improved cardiomegaly. Improved left greater than right bilateral acute infiltrates and/or atelectasis. 06/22 ID progress note, subsequent documentation: worsening of his respiratory status requiring intubation and transferred to ICU also spiked a fever and did have a heart rate in the 90s medically ready for SIRS/sepsis source likely left lower lobe pneumonia concerning for possible gram-negative.. 06/22 pulmonary progress notes: Hypotension requiring norepinephrine, possible sepsis and septic shock Treatment: ICU / Telemetry monitoring Cefepime HCl 2 GM IVPB 06/22-06/25 Norepinephrine gtt (titrate per orders) Avycaz 2.5 GM IVPB Q 8 HRS Please clarify if the sepsis is: [ ] Sepsis present on admission confirmed, remains under treatment [ x] Sepsis present on admission confirmed, resolved [ ] Sepsis ruled out [ ] Other condition, please specify [ ] Unable to determine (Template Last Revised: May 2020) MTDD
--- NOTE | 2024-06-26 13:07 | P.PN ---
Subjective Progress Note Date: 06/24/24 Principal diagnosis: Reason for follow-up abnormal chest x-ray question pneumonia Patient is a 49-year-old male with a past medical history significant for chron's disease in this patient who did have multiple surgeries and complication as far as abdominal surgeries did have history of recurrent pneumonia vent dependent respiratory failure currently on a trach collar CVA TIA patient has been brought into the hospital concerning for chest pain patient also have abnormal chest x-ray concern for possible pneumonia prompting this consultation. On today's evaluation that is 06/24/2024,the patient did have resolution of his fever and is afebrile patient remains to be debated on the vent FiO2 is currently at 35%, the patient is awake and try to communicate not requiring any pressor support no other changes reported Patient white count is 5.84, creatinine 0.32 sputum and BAL culture growing gram-negative Objective - Vital Signs Vital signs: Vital Signs Temp 98.3 F 06/24/24 10:00 Pulse 81 06/24/24 12:45 Resp 20 06/24/24 12:45 BP 120/64 06/24/24 12:45 Pulse Ox 100 06/24/24 12:45 FiO2 35 06/24/24 12:45 Intake & Output 06/23/24 06/24/24 06/24/24 18:59 06:59 18:59 Intake Total 2074.892 1429.554 857.134 Output Total 815 1390 610 Balance 1259.892 39.554 247.134 Weight 92.6 kg 97.3 kg Intake: IV 120 130 50 KVO 120 130 50 Intake, IV Titration 1814.892 989.554 807.134 Amount Cefepime 2 gm In Sodium 100 Chloride 0.9% 100 ml @ 25 mls/hr IVPB Q8H [facility] Rx#: [id number] Magnesium Sulfate-D5w Pmx 100 1 gm In Dextrose/Water 1 100ml.bag @ 100 mls/hr IVPB ONCE ONE Rx#: [id number] Mvi, Adult No.4 with Vit 50 650 150 K 10 ml Trace (Conc-1Ml/ Dose) 1 ml In Amino Acid 5%-D20w+Lytes*E* 1,000 ml @ 50 mls/hr IV .[id number] [facility] Rx#:[id number] Mvi, Adult No.4 with Vit 250 K 10 ml Trace (Conc-1Ml/ Dose) 1 ml Potassium Chloride 40 meq In Amino Acid 5%-D20w+Lytes*E* 1, 000 ml @ 50 mls/hr IV . [id number] [facility] Rx#:[id number] Mvi, Adult No.4 with Vit 575 K 10 ml Trace (Conc-1Ml/ Dose) 1 ml Sodium Acetate 30 meq Sodium Phosphate 3 mmol Potassium Chloride 20 meq Calcium Gluconate 0.5 gm Magnesium Sulfate gm 1.5 gm In Amino Acids 5 %/Dextrose 20 % 1,000 ml @ 50 mls/hr IV .BY DURATION [facility] Rx#: [id number] Norepinephrine 8 mg In 220.300 139.554 Sodium Chloride 0.9% 250 ml @ 0.11 MCG/KG/MIN 19. 774 mls/hr IV .[id number] [facility] Rx#:[id number] Potassium Chloride 10 meq 400 In Water For Injection 1 100ml.bag @ 100 mls/hr IVPB Q1HR [facility] Rx#: [id number] Sodium Acetate 30 meq 75 Sodium Phosphate 3 mmol Potassium Chloride 20 meq Calcium Gluconate 0.5 gm Magnesium Sulfate gm 1.5 gm In Amino Acids 5 %/ Dextrose 20 % 1,000 ml @ 50 mls/hr IV .BY DURATION [facility] Rx#:[id number] Sodium Phosphate 30 mmol 250 In Dextrose 5% in Water 250 ml @ 65 mls/hr IVPB ONCE ONE Rx#:[id number] Sodium Phosphate 60 mmol 250 In Dextrose 5% in Water 250 ml @ 45 mls/hr IVPB ONCE ONE Rx#:[id number] propofoL 1,000 mg In 144.592 200 57.134 Empty Bag 1 bag @ 15 MCG/ KG/MIN 8.361 mls/hr IV . [id number] [facility] Rx#:[id number] Blood Product 0 310 Rc Irr As1 Unit 0 310 [id number] Other 140 Output: Urine 815 790 610 Stool 600 Other: Voiding Method Indwelling Catheter Indwelling Catheter Indwelling Catheter - Exam GENERAL DESCRIPTION: Middle-age male intubated through the trach RESPIRATORY SYSTEM: Unlabored breathing , decreased breath sounds at bases HEART: S1 S2 regular rate and rhythm , ABDOMEN: Soft , no tenderness EXTREMITIES: No edema feet - Labs CBC & Chem 7: 06/26/24 03:09 06/26/24 03:09 Labs: Abnormal Lab Results - Last 24 Hours (Table) 06/23/24 06/24/24 06/24/24 Range/Units 16:25 04:41 04:41 RBC 3.09 L (4.40-5.60) 10*6/uL Hgb 7.7 L (13.0-17.0) g/dL Hct 26.2 L (39.6-50.0) % MCH 24.9 L (27.0-32.0) pg MCHC 29.4 L (32.0-37.0) g/dL Sodium 135 L (137-145) mmol/L Potassium 3.2 L (3.5-5.1) mmol/L Creatinine 0.32 L (0.66-1.25) mg/dL Glucose 118 H (74-99) mg/dL Calcium 8.3 L (8.4-10.2) mg/dL Phosphorus 2.0 L (2.5-4.5) mg/dL Crossmatch See Detail Microbiology - Last 24 Hours (Table) 06/21/24 21:41 Gram Stain - Preliminary Sputum Sputum Culture - Preliminary Gram Neg Bacilli Corynebacterium striatum group 06/22/24 11:44 Blood Culture - Preliminary Blood 06/22/24 15:00 Gram Stain - Preliminary Bronchoalviolar Lavage - Right Bronchial Washings Culture - Preliminary Assessment and Plan (1) Abnormal chest x-ray Current Visit: Yes Status: Acute Code(s): R93.89 - ABNORMAL FINDINGS ON DX IMAGING OF OTH BODY STRUCTURES SNOMED Code(s): 772885766 (2) Penicillin allergy Current Visit: Yes Status: Acute Code(s): Z88.0 - ALLERGY STATUS TO PENICILLIN SNOMED Code(s): 48214552 (3) Pneumonia Current Visit: No Status: Acute Code(s): J18.9 - PNEUMONIA, UNSPECIFIED ORGANISM SNOMED Code(s): 396802641 (4) Sepsis Current Visit: No Status: Acute Code(s): A41.9 - SEPSIS, UNSPECIFIED ORGANIS M SNOMED Code(s): 59350813 Plan: 1patient did have worsening of his respiratory status requiring intubation and transferred to ICU also spiked a fever And did have a heart rate in the 90s medically ready for SIRS/sepsis source likely left lower lobe pneumonia concerning for possible gram-negative in this patient who did have Zosyn allergies that would limit the number of antibiotics safe to use. 2patient is status post bronchoscopy lavage as well as sputum culture which is currently growing gram-negative bacilli 3we will treat the patient with cefepime while waiting for the culture to finalize and monitor clinical course closely Dictation was produced using [employer] dictation software. please excuse any grammatical, word or spelling errors. Time with Patient: Less than 30
--- NOTE | 2024-06-26 13:08 | P.PN ---
Subjective Progress Note Date: 06/25/24 Principal diagnosis: Reason for follow-up abnormal chest x-ray question pneumonia Patient is a 49-year-old male with a past medical history significant for chron's disease in this patient who did have multiple surgeries and complication as far as abdominal surgeries did have history of recurrent pneumonia vent dependent respiratory failure currently on a trach collar CVA TIA patient has been brought into the hospital concerning for chest pain patient also have abnormal chest x-ray concern for possible pneumonia prompting this consultation. On today's evaluation that is 06/25/2024,the patient remains to be afebrile, patient is on intubated on the vent FiO2 is currently 35% no significant purulent secretions through the ET patient not requiring any pressor support and no other changes reported by the nursing staff Patient white count is 5.42, creatinine 0.36 sputum did grew multidrug-resistant Pseudomonas aeruginosa that is resistant to meropenem and patient allergic to Zosyn Objective - Vital Signs Vital signs: Vital Signs Temp 98.7 F 06/25/24 20:00 Pulse 93 06/25/24 22:00 Resp 21 06/25/24 22:00 BP 103/59 06/25/24 22:00 Pulse Ox 98 06/25/24 22:00 FiO2 35 06/25/24 21:13 Intake & Output 06/25/24 06/25/24 06/26/24 06:59 18:59 06:59 Intake Total 0882.810 0518.939 40 Output Total 1470 1520 240 Balance -267.545 49.939 -200 Weight 96.7 kg Intake: IV 130 70 40 KVO 130 70 40 Intake, IV Titration 3329.706 4402.939 Amount Cefepime 2 gm In Sodium 100 Chloride 0.9% 100 ml @ 25 mls/hr IVPB Q8H [facility] Rx#: [id number] Mvi, Adult No.4 with Vit 650 1031 K 10 ml Trace (Conc-1Ml/ Dose) 1 ml Potassium Chloride 40 meq In Amino Acid 5%-D20w+Lytes*E* 1, 000 ml @ 50 mls/hr IV . [id number] [facility] Rx#:[id number] Norepinephrine 8 mg In 350.178 84.427 Sodium Chloride 0.9% 250 ml @ 0.11 MCG/KG/MIN 19. 774 mls/hr IV .Q13H3M [facility] Rx#:[id number] Sodium Phosphate 15 mmol 250 In Dextrose 5% in Water 250 ml @ 127.5 mls/hr IVPB ONCE ONE Rx#: [id number] propofoL 1,000 mg In 72.277 34.512 Empty Bag 1 bag @ 15 MCG/ KG/MIN 8.361 mls/hr IV . [id number] [facility] Rx#:[id number] Output: Gastric Drainage 925 Urine 670 595 240 Stool 800 Other: Voiding Method Indwelling Catheter Indwelling Catheter Indwelling Catheter - Exam GENERAL DESCRIPTION: Middle-age male intubated through the trach RESPIRATORY SYSTEM: Unlabored breathing , decreased breath sounds at bases HEART: S1 S2 regular rate and rhythm , ABDOMEN: Soft , no tenderness EXTREMITIES: No edema feet - Labs CBC & Chem 7: 06/26/24 03:09 06/26/24 03:09 Labs: Abnormal Lab Results - Last 24 Hours (Table) 06/25/24 06/25/24 Range/Units 04:30 04:30 RBC 3.29 L (4.40-5.60) 10*6/uL Hgb 8.2 L (13.0-17.0) g/dL Hct 28.2 L (39.6-50.0) % MCH 24.9 L (27.0-32.0) pg MCHC 29.1 L (32.0-37.0) g/dL Sodium 136 L (137-145) mmol/L Creatinine 0.36 L (0.66-1.25) mg/dL Glucose 116 H (74-99) mg/dL Phosphorus 2.4 L (2.5-4.5) mg/dL Microbiology - Last 24 Hours (Table) 06/22/24 11:44 Blood Culture - Preliminary Blood 06/21/24 21:41 Gram Stain - Final Sputum Sputum Culture - Final Corynebacterium striatum group Pseudomonas aeruginosa 06/22/24 15:00 Gram Stain - Preliminary Bronchoalviolar Lavage - Right Bronchial Washings Culture - Preliminary Pseudomonas aeruginosa 06/19/24 17:47 Blood Culture - Final Blood Assessment and Plan (1) Abnormal chest x-ray Current Visit: Yes Status: Acute Code(s): R93.89 - ABNORMAL FINDINGS ON DX IMAGING OF OTH BODY STRUCTURES SNOMED Code(s): 458171239 (2) Penicillin allergy Current Visit: Yes Status: Acute Code(s): Z88.0 - ALLERGY STATUS TO PENICILLIN SNOMED Code(s): 25215688 (3) Pneumonia Current Visit: No Status: Acute Code(s): J18.9 - PNEUMONIA, UNSPECIFIED ORGANISM SNOMED Code(s): 780032531 (4) Sepsis Current Visit: No Status: Acute Code(s): A41.9 - SEPSIS, UNSPECIFIED ORGANISM SNOMED Code(s): 79915366 Plan: 1patient did have worsening of his respiratory status requiring intubation and transferred to ICU also spiked a fever And did have a heart rate in the 90s me dically ready for SIRS/sepsis source likely left lower lobe pneumonia concerning for possible gram-negative in this patient who did have Zosyn allergies that would limit the number of antibiotics safe to use. 2patient is status post bronchoscopy lavage as well as sputum culture which is currently growing multidrug-resistant Pseudomonas aeruginosa resistant to meropenem sensitive to Zosyn however the patient is allergic to Zosyn 3I will discuss continue cefepime and start the patient on Avycaz and monitor clinical course closely Dictation was produced using [employer] dictation software. please excuse any grammatical, word or spelling errors. Time with Patient: Less than 30
--- NOTE | 2024-06-26 13:09 | P.PN ---
Subjective Progress Note Date: 06/26/24 Principal diagnosis: Reason for follow-up abnormal chest x-ray question pneumonia Patient is a 49-year-old male with a past medical history significant for chron's disease in this patient who did have multiple surgeries and complication as far as abdominal surgeries did have history of recurrent pneumonia vent dependent respiratory failure currently on a trach collar CVA TIA patient has been brought into the hospital concerning for chest pain patient also have abnormal chest x-ray concern for possible pneumonia prompting this consultation. On today's evaluation that is 06/26/2024, the patient continues to be afebrile patient has been switched over to trach collar and seem to be breathing comfortably patient denies having any chest pain or worsening cough no nausea or vomiting. Patient not requiring any pressor support Patient white count is 4.72, creatinine 0.39 Objective - Vital Signs Vital signs: Vital Signs Temp 98.1 F 06/26/24 08:00 Pulse 100 06/26/24 12:00 Resp 22 06/26/24 10:00 BP 92/49 06/26/24 10:00 Pulse Ox 98 06/26/24 12:21 FiO2 40 06/26/24 12:21 Intake & Output 06/25/24 06/26/24 06/26/24 18:59 06:59 18:59 Intake Total 0941.182 0137 40 Output Total 1520 720 240 Balance 49.939 431 -200 Weight 96.1 kg 96.1 kg Intake: IV 70 120 40 KVO 70 120 40 Intake, IV Titration 7373.400 4565 Amount Cefepime 2 gm In Sodium 100 Chloride 0.9% 100 ml @ 25 mls/hr IVPB Q8H [facility] Rx#: [id number] Mvi, Adult No.4 with Vit 1031 1031 K 10 ml Trace (Conc-1Ml/ Dose) 1 ml Potassium Chloride 40 meq In Amino Acid 5%-D20w+Lytes*E* 1, 000 ml @ 50 mls/hr IV . [id number] [facility] Rx#:[id number] Norepinephrine 8 mg In 84.427 Sodium Chloride 0.9% 250 ml @ 0.11 MCG/KG/MIN 19. 774 mls/hr IV .Q13H3M [facility] Rx#:[id number] Sodium Phosphate 15 mmol 250 In Dextrose 5% in Water 250 ml @ 127.5 mls/hr IVPB ONCE ONE Rx#: [id number] propofoL 1,000 mg In 34.512 Empty Bag 1 bag @ 15 MCG/ KG/MIN 8.361 mls/hr IV . [id number] [facility] Rx#:[id number] Output: Gastric Drainage 925 Urine 595 720 240 Other: Voiding Method Indwelling Catheter Indwelling Catheter - Exam GENERAL DESCRIPTION: Middle-age male lying in bed in no distress RESPIRATORY SYSTEM: Unlabored breathing , decreased breath sounds at bases HEART: S1 S2 regular rate and rhythm , ABDOMEN: Soft , no tenderness EXTREMITIES: No edema feet - Labs CBC & Chem 7: 06/26/24 03:09 06/26/24 03:09 Labs: Abnormal Lab Results - Last 24 Hours (Table) 06/26/24 06/26/24 Range/Units 03:09 03:09 RBC 2.96 L (4.40-5.60) 10*6/uL Hgb 7.6 L (13.0-17.0) g/dL Hct 26.0 L (39.6-50.0) % MCH 25.7 L (27.0-32.0) pg MCHC 29.2 L (32.0-37.0) g/dL Plt Count 139 L (140-440) 10*3/uL MPV 12.3 H (9.5-12.2) fL Sodium 135 L (137-145) mmol/L Creatinine 0.39 L (0.66-1.25) mg/dL Glucose 109 H (74-99) mg/dL Phosphorus 2.3 L (2.5-4.5) mg/dL Triglycerides 183.00 H (0.00-149.00) mg/dL Microbiology - Last 24 Hours (Table) 06/22/24 11:44 Blood Culture - Preliminary Blood 06/21/24 21:41 Gram Stain - Final Sputum Sputum Culture - Final Corynebacterium striatum group Pseudomonas aeruginosa 06/22/24 15:00 Gram Stain - Preliminary Bronchoalviolar Lavage - Right Bronchial Washings Culture - Preliminary Pseudomonas aeruginosa Assessment and Plan (1) Abnormal chest x-ray Current Visit: Yes Status: Acute Code(s): R93.89 - ABNORMAL FINDINGS ON DX IMAGING OF OTH BODY STRUCTURES SNOMED Code(s): 399522638 (2) Penicillin allergy Current Visit: Yes Status: Acute Code(s): Z88.0 - ALLERGY STATUS TO PENICILLIN SNOMED Code(s): 02831111 (3) Pneumonia Current Visit: No Status: Acute Code(s): J18.9 - PNEUMONIA, UNSPECIFIED ORGANISM SNOMED Code(s): 419020728 (4) Sepsis Current Visit: No Status: Acute Code(s): A41.9 - SEPSIS, UNSPECIFIED ORGANISM SNOMED Code(s): 83239742 Plan: 1patient did have worsening of his respiratory status requiring intubation and transferred to ICU also spiked a fever And did have a heart rate in the 90s medically ready for SIRS/sepsis source likely left lower lobe pneumonia concerning for possible gram-negative in this patient who did have Zosyn allergies that would limit the number of antibiotics safe to use. 2patient is status post bronchoscopy lavage as well as sputum culture which is currently growing multidrug-resistant Pseudomonas aeruginosa resistant to meropenem sensitive to Zosyn however the patient is allergic to Zosyn 3patient antibiotic has been adjusted to Avycaz on the basis of sensitivity and monitor clinical course closely Mother at the bedside question answered Dictation was produced using [employer] dictation software. please excuse any grammatical, word or spelling errors. Time with Patient: Less than 30
--- NOTE | 2024-06-26 13:33 | P.PN ---
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 Patient is obese and he has developed chronic generalized weakness, respiratory insufficiency with recurrent pneumonias requiring previous intubation and mechanical ventilation. The patient has also been treated for episodes of pneumonias in the past including pseudomonal pneumonia earlier this year. He does have also an area of tracheal stenosis related to previous tracheal manipulation and tracheostomy tube insertion. Currently he has a permanent tracheostomy tube in place to secure his airways. 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 Following his most recent hospitalization in March 2024, the patient was discharged to [facility] and following that he was discharged home where he has been taking care of by family members. Since then, the patient has done well. The patient came into the emergency department as he has stated that he has been feeling more short of breath and his dyspnea is occurring in episodes. Nevertheless, he has remained hemodynamically stable. He remains on 35 to 40% trach collar without development of any significant respiratory secretions. Blood work has been essentially stable. The white cell count at time of admission was at 5.4 with a hemoglobin of 8.3 and a platelet count of 181. Sodium levels at 139, bicarb is at 33, BUN 23 with a creatinine of 0.35. Troponins were negative. LFTs are essentially within normal limits. Total protein was at 7.4 with an albumin of 3.5. The viral screen was negative in the emergency department. Also, the patient was given a chest x-ray that showed smaller lung volumes and poor respiratory effort. There is some cardiomegaly. No acute airspace disease or consolidation. His EKG showed a normal sinus mechanism. Based on that, the patient was hospitalized in the pulmonary consultation was requested. He was started on empiric antibiotic coverage with IV Rocephin. Noted the patient is bedridden. He has chronic muscle atrophy and contractures in his lower extremities. He remains on therapeutic dose of Lovenox 90 mg subcu every 12 hours. On 06/21/2024, the patient feels that something is obstructing his airways. At times he is feeling short of breath. No clear explanation. There may be some anatomic problems and obstruction in his trachea as during my early bronchoscopies, I noted that the patient has an area of tracheal stenosis at the site of previous tracheostomy tube insertion. I think it would be douglas to reevaluate this patient's airway right bronchoscopy and document patency of the airway. No significant respiratory secretions for now. No fever. No chills. Blood cultures are still negative. White cell count is 6.7, hemoglobin is 8.5, BUN is 12 with a creatinine of 0.36. He remains on a 40% trach collar. Remains on TPN for nutritional support Patient was seen today on06/22/24, patient was transferred to the ICU yesterday because he was not ventilating well with his tracheostomy and trach collar. Patient was placed on mechanical ventilation, however his tracheostomy is a cuffless trach, and he was still losing significant amount of volume while on mechanical ventilation. Today I had to change his tracheostomy to a different tracheostomy same size and length, however it has a cough on it and we could inflate the cough to prevent any further volume loss on mechanical ventilation. And I was able to do so at bedside. Chest x-ray clearly showed evidence of extensive left lower lobe airspace disease and the patient underwent bronchoscopy and BAL of the left lower lobe. In the meantime I went ahead after placing any tracheostomy and placed the patient and mechanical ventilation and on propofol. Patient is now on tidal volume of 500 rate of 20 FiO2 100% and PEEP of 5, ABG is pending. Earlier today, patient was requiring a bit of norepinephrine at 0.06 mcg/kg/min he is also on TPN at 75 cc/h. WBC count 6.2 hemoglobin 9.1. ABG earlier today showed a pO2 of 65 pCO2 93 pH of 7.16 and this was on trach collar. On mechanical ventilation with volume leak and loss patient had a pO2 of 91 pCO2 62 pH of 7.31 but as the day went by he was having more volume loss requiring a tracheostomy tube change. Basic metabolic profile is normal, renal profile is normal. Chest x-ray as noted earlier extensive infiltrate involving the left lower lobe noted. Patient was seen and evaluated today on 06/23/2024, patient remains in the ICU, intubated mechanically ventilated, patient did quite well since we had the tracheostomy changed to a cuffed tracheostomy in part same size. He is now on assist-control rate of 20 tidal volume 500 FiO2 35% and PEEP of 5 ABG showed a pO2 of 91 pCO2 62 pH of 7.31. Patient remains on TPN at 50 mL/h propofol at 20 mcg/kg/min norepinephrine is still needed at 0.12 mcg/kg/min patient remains on cefepime he is also on Lovenox 90 mg subcu every 12 hours. Labs today showed WBC of 6.49 hemoglobin of 7 potassium is a bit low at 3.2 otherwise electrolytes are normal renal profile is normal procalcitonin level is 0.59, C. difficile screen is negative chest x-ray showed significant improvement in his left lower lobe infiltrate Patient was seen today on 06/24/2024, remains in the ICU, intubated and mechanically ventilated. Patient is on assist-control rate of 20 tidal volume 500 FiO2 35% PEEP of 5. ABG was not done today. Patient remains on propofol at 30 mcg/kg/min TPN at 50 cc/h norepinephrine at 0.08 mcg/kg/min remains on cefepime. Sputum cultures showing gram-negative bacilli, BAL showed no growth, chest x-ray showed improvement in left lower lobe pneumonia. WBC count is 5.84 hemoglobin 7.7 electrolytes showed low potassium of 3.2 BUN is normal creatinine is normal, procalcitonin level on this admission was 0.59, C. difficile is negative. Seen today on 06/25/2024, patient remains in the ICU, intubated and mechanically ventilated, patient has a tracheostomy in place, he is on assist-control rate of 20 tidal volume 500 FiO2 35% and PEEP of 5 no ABG was done today. Chest x-ray continues to show improvement in his left lower lobe infiltrate/pneumonia WBC count is 5.4 hemoglobin 8.2 platelets are 155 electrolytes are normal renal profile is normal patient remains on nutritional support/TPN, he is on norepinephrine 0.06 mcg/kg/min propofol at 10 mcg/kg/min TPN at 50 cc/h. Remains on cefepime for his gram-negative pneumonia, patient failed pressure support and CPAP yesterday, he lasted less than half an hour. Will try again today with a pressure support of 12 or 14 and CPAP, and if he does well with pressure support and CPAP, may eventually changed the patient to a trach collar as he was prior to all of this. Patient was seen today on 06/26/2024, remains in the ICU, intubated and mechanically ventilated, patient has tracheostomy in place, he is on assist- control rate of 20 tidal volume 500 FiO2 35% PEEP of 5 yesterday he tolerated pressure support of 12 and CPAP until early evening, and at night patient was placed back on assist-control mode of mechanical ventilation he is now on assist-control mode of mechanical ventilation, and I plan to put him back on pressure support and CPAP and if tolerated may switch him to trach collar. Remains on TPN at 50 cc/h. Chest x-ray showing mostly basilar atelectasis, no evidence of pulmonary edema. Patient does have atelectatic changes and low lung volumes. WBC count is 4.7 hemoglobin 7.6 electrolytes are normal renal profile is normal. Objective - Vital Signs Vital signs: Vital Signs Temp 98.1 F 06/26/24 08:00 Pulse 100 06/26/24 12:00 Resp 22 06/26/24 10:00 BP 92/49 06/26/24 10:00 Pulse Ox 98 06/26/24 12:21 FiO2 40 06/26/24 12:21 Intake & Output 06/25/24 06/26/24 06/26/24 18:59 06:59 18:59 Intake Total 9520.960 9174 40 Output Total 1520 720 240 Balance 49.939 431 -200 Weight 96.1 kg 96.1 kg Intake: IV 70 120 40 KVO 70 120 40 Intake, IV Titration 1114.601 5887 Amount Cefepime 2 gm In Sodium 100 Chloride 0.9% 100 ml @ 25 mls/hr IVPB Q8H [facility] Rx#: [id number] Mvi, Adult No.4 with Vit 1031 1031 K 10 ml Trace (Conc-1Ml/ Dose) 1 ml Potassium Chloride 40 meq In Amino Acid 5%-D20w+Lytes*E* 1, 000 ml @ 50 mls/hr IV . [id number] [facility] Rx#:[id number] Norepinephrine 8 mg In 84.427 Sodium Chloride 0.9% 250 ml @ 0.11 MCG/KG/MIN 19. 774 mls/hr IV .[id number] [facility] Rx#:[id number] Sodium Phosphate 15 mmol 250 In Dextrose 5% in Water 250 ml @ 127.5 mls/hr IVPB ONCE ONE Rx#: [id number] propofoL 1,000 mg In 34.512 Empty Bag 1 bag @ 15 MCG/ KG/MIN 8.361 mls/hr IV . [id number] [facility] Rx#:[id number] Output: Gastric Drainage 925 Urine 595 720 240 Other: Voiding Method Indwelling Catheter Indwelling Catheter - Exam GENERAL: A 48-year-old male patient, resting in bed, intubated and mechanically ventilated. On propofol Head exam was generally normal. There was no scleral icterus or corneal arcus. Mucous membranes were moist. HEENT: No scleral icterus. No conjunctival pallor. Normocephalic, atraumatic. Tracheostomy tube is in a good location. The patient has a subclavian left triple-lumen catheter in place. CARDIOVASCULAR: S1 and S2 present. No murmurs, rubs, or gallops. PULMONARY: Diminished breath sounds were bilaterally. No wheezes rhonchi or crackles, scattered rhonchi the patient's breath sounds are quite diminished bilaterally. ABDOMEN: Soft, nontender, nondistended, normoactive bowel sounds. No palpable organomegaly. Functioning ileostomy. 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 EXTREMITIES: No cyanosis, clubbing, or pedal edema. Right-sided BKA noted. NEUROLOGICAL: Profound weakness in all 4 extremities, weak cough, extensive muscle atrophy in all 4 extremities. Patient is awake, follows instructions. In spite of being on low-dose propofol. SKIN: No rashes. No open wounds. - Labs CBC & Chem 7: 06/26/24 03:09 06/26/24 03:09 Labs: Abnormal Lab Results - Last 24 Hours (Table) 06/26/24 06/26/24 Range/Units 03:09 03:09 RBC 2.96 L (4.40-5.60) 10*6/uL Hgb 7.6 L (13.0-17.0) g/dL Hct 26.0 L (39.6-50.0) % MCH 25.7 L (27.0-32.0) pg MCHC 29.2 L (32.0-37.0) g/dL Plt Count 139 L (140-440) 10*3/uL MPV 12.3 H (9.5-12.2) fL Sodium 135 L (137-145) mmol/L Creatinine 0.39 L (0.66-1.25) mg/dL Glucose 109 H (74-99) mg/dL Phosphorus 2.3 L (2.5-4.5) mg/dL Triglycerides 183.00 H (0.00-149.00) mg/dL Microbiology - Last 24 Hours (Table) 06/22/24 11:44 Blood Culture - Preliminary Blood 06/21/24 21:41 Gram Stain - Final Sputum Sputum Culture - Final Corynebacterium striatum group Pseudomonas aeruginosa 06/22/24 15:00 Gram Stain - Preliminary Bronchoalviolar Lavage - Right Bronchial Washings Culture - Preliminary Pseudomonas aeruginosa Assessment and Plan Assessment: Impression: Acute on chronic hypoxic and hypercapnic respiratory failure, multifactorial Acute left lower lobe pneumonia Tracheal stenosis at the site of the previously inserted tracheostomy tube, visualized on most recent bronchoscopy. Previous history of recurrent ventilator dependent respiratory failure, secondary to pneumonia and mucous plugging. The patient has undergone previous bronchoscopies and cultures from bronchoscopy on 12/31/2023 was positive for MRSA and subsequent bronchoscopy on 01/03/2024 was positive for Klebsiella pneumoniae and Bella glabrata. Most recent sputum analysis from 02/26/2024 and 03/17/2024 was positive for Pseudomonas aeruginosa and the patient was treated successfully. Status post bronchoscopy and BAL of left lower lobe on 06/22/2024, with improvement noted in his left lower lobe pneumonia cultures/BAL from the bronchoscopy are negative although sputum earlier was positive for gram-negative bacilli. Previous episodes of sepsis secondary to pneumonia Crohn's disease, with previous complication of bowel perforation s/p colectomy and diverting ileostomy. The patient also has had previous history of abdominal wall bleeding there is currently inactive and stable. The patient has a high output ileostomy TPN for nutritional support Tracheobronchomalacia History of DVT, on therapeutic dose of Lovenox CVA/TIA, with residual left-sided weakness Right BKA History of asystole/cardiac arrest in 2021 Hypotension requiring norepinephrine, possible sepsis and septic shock. Recommendation: Continue ventilatory support, patient will have another trial of pressure support and CPAP and I like to transition to trach collar if possible sometime later today Continue to monitor in ICU Continue hemodynamic norepinephrine is presently on hold. Continue antibiotics Continue bronchodilators Continue nutritional support/TPN GI DVT prophylaxis Continue TPN Patient remains critically ill Critical care time is over 34 minutes Will continue to follow Time with Patient: Greater than 30
--- NOTE | 2024-06-26 20:22 | P.PN ---
Subjective Progress Note Date: 06/26/24 Patient admitted for bilateral cramping due to pneumonia gram-negative organism is not identified yet patient had Pseudomonas in the past patient underwent bronchoscopy patient remains on mechanical ventilation broad-spectrum antibiotics patient has a tracheostomy in place. Patient underwent bronchoalveolar lavage. 06/26/2024 Patient is evaluated in the ICU. Remains on the mechanical ventilator with FiO2 of 40%. Sputum culture reveals pseudomonas aeruginosa, corynebacterium striatum group. He remains on antibiotics with IV ceftazidime/Avibactam. TPN infusing. Labs today reveal white blood cell count 4.72, hgb 7.6, sodium 135, potassium 4.0, BUN 13, creatinine 0.39. Magnesium 1.9. Triglycerides of 183.00. Unable to complete review of systems as patient is currently intubated /trach in place. PHYSICAL EXAMINATION: GENERAL: Intubated sedated. HEENT: Pupils are round and equally reacting to light. EOMI. No scleral icterus. No conjunctival pallor. Normocephalic, atraumatic. No pharyngeal erythema. No thyromegaly. Tracheostomy in place. CARDIOVASCULAR: S1 and S2 present. No murmurs, rubs, or gallops. PULMONARY: Chest is clear to auscultation, no wheezing or crackles. ABDOMEN: Soft, nontender, nondistended, normoactive bowel sounds. No palpable organomegaly. MUSCULOSKELETAL: No joint swelling or deformity. EXTREMITIES: No cyanosis, clubbing, or pedal edema. NEUROLOGICAL: Sedated at this time SKIN: No rashes. Assessment and plan Bilateral gram-negative pneumonia possibility of aspiration infectious disease and multiple other consultants are following the patient - Acute respiratory failure requiring mechanical ventilation status post bronchoalveolar lavage; cultures growing pseudomonas and corynebacterium - Crohn's disease with ileostomy in the past patient is presently on TPN - Tracheobronchomalacia - CVA TIA in the past - History of DVT for which patient is on anticoagulation DVT prophylaxis: On full anticoagulation for history of DVT in the past The impression and plan of care has been dictated by Coral Medina Nurse Practitioner as directed. Dr. Mo MD I have performed a history and physical examination and medical decision making of this patient, discussed the same with the dictator, and agree with the dictators assessment and plan as written, documented as a scribe. Based on total visit time, I have performed more than 50% of this visit. Objective - Vital Signs Vital signs: Vital Signs Temp 98.4 F 06/26/24 16:00 Pulse 83 06/26/24 19:00 Resp 19 06/26/24 19:00 BP 110/54 06/26/24 19:00 Pulse Ox 100 06/26/24 19:00 FiO2 40 06/26/24 16:00 Intake & Output 06/26/24 06/26/24 06/27/24 06:59 18:59 06:59 Intake Total 1151 120 0 Output Total 720 3220 75 Balance 431 -3100 -75 Weight 96.1 kg 96.1 kg Intake: IV 120 120 0 KVO 120 120 0 Intake, IV Titration 1031 Amount Mvi, Adult No.4 with Vit 1031 K 10 ml Trace (Conc-1Ml/ Dose) 1 ml Potassium Chloride 40 meq In Amino Acid 5%-D20w+Lytes*E* 1, 000 ml @ 50 mls/hr IV . [id number] [facility] Rx#:[id number] Output: Urine 720 820 75 Stool 2400 Other: Voiding Method Indwelling Catheter Indwelling Catheter - Labs CBC & Chem 7: 06/26/24 03:09 06/26/24 03:09 Labs: Abnormal Lab Results - Last 24 Hours (Table) 06/26/24 06/26/24 Range/Units 03:09 03:09 RBC 2.96 L (4.40-5.60) 10*6/uL Hgb 7.6 L (13.0-17.0) g/dL Hct 26.0 L (39.6-50.0) % MCH 25.7 L (27.0-32.0) pg MCHC 29.2 L (32.0-37.0) g/dL Plt Count 139 L (140-440) 10*3/uL MPV 12.3 H (9.5-12.2) fL Sodium 135 L (137-145) mmol/L Creatinine 0.39 L (0.66-1.25) mg/dL Glucose 109 H (74-99) mg/dL Phosphorus 2.3 L (2.5-4.5) mg/dL Triglycerides 183.00 H (0.00-149.00) mg/dL Microbiology - Last 24 Hours (Table) 06/22/24 15:00 Gram Stain - Preliminary Bronchoalviolar Lavage - Right Bronchial Washings Culture - Preliminary Pseudomonas aeruginosa Corynebacterium striatum group 06/22/24 11:44 Blood Culture - Preliminary Blood Assessment and Plan Time with Patient: Less than 30
[2024-06-27 03:55] LABS: Basophils # (A) 0.02 10*3/uL (0.00-0.10); Basophils % (A) 0.4 %; Eosinophils # (A) 0.23 10*3/uL (0.04-0.35); Eosinophils % (A) 4.5 %; HGB 7.3 g/dL (13.0-17.0); Lymphocytes # (A) 1.38 10*3/uL (0.90-5.00); Lymphocytes % (A) 27.2 %; MCHC 28.1 g/dL (32.0-37.0); Mean Platelet Volume 12.1 fL (9.5-12.2); Monocytes % (A) 5.9 %; Neutrophils # (A) 3.13 10*3/uL (1.80-7.70); Neutrophils % (A) 61.8 %; Platelet Count 132 10*3/uL (140-440); RBC 2.92 10*6/uL (4.40-5.60); RDW 18.4 % (11.5-14.5); WBC 5.07 10*3/uL (4.50-10.00)
[2024-06-27 04:20] LABS: African American GFR (CKD) >90 (>60 ml/min/1.73 sqM); Anion Gap 2 mmol/L; Blood Urea Nitrogen 11 mg/dL (9-20); Calcium 8.7 mg/dL (8.4-10.2); Carbon Dioxide 29 mmol/L (22-30); Chloride 103 mmol/L (98-107); Glucose 103 mg/dL (74-99); Magnesium 1.9 mg/dL (1.6-2.3); Non-African American GFR(CKD) >90 (>60 ml/min/1.73 sqM); Phosphorus 3.2 mg/dL (2.5-4.5); Potassium 4.1 mmol/L (3.5-5.1); Sodium 134 mmol/L (137-145)
--- NOTE | 2024-06-27 09:02 | XR ---
EXAMINATION TYPE: XR chest 1V portable DATE OF EXAM: 06/27/2024 4:31 AM COMPARISON: 06/26/2024 CLINICAL INDICATION: Male, 49 years old with history of resp fail, TECHNIQUE: XR chest 1V portable view(s) obtained. FINDINGS: The heart size is normal. The pulmonary vasculature is normal. Left lower lobe infiltrate with air bronchograms are present. Correlate for atelectasis and pneumonia silhouetting the diaphragm is present. A small effusion may be present. On the present. Tracheostomy tube present in the midline. Nasogastric tube transverses the thorax. Th e central venous catheter tip is in the proximal right atrium IMPRESSION: 1. Left lower lobe atelectasis or pneumonia. 2. Lines and catheters discussed above [facility], , 06/27/2024 9:00 AM
--- NOTE | 2024-06-27 12:23 | P.PN ---
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 Patient is obese and he has developed chronic generalized weakness, respiratory insufficiency with recurrent pneumonias requiring previous intubation and mechanical ventilation. The patient has also been treated for episodes of pneumonias in the past including pseudomonal pneumonia earlier this year. He does have also an area of tracheal stenosis related to previous tracheal manipulation and tracheostomy tube insertion. Currently he has a permanent tracheostomy tube in place to secure his airways. 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 Following his most recent hospitalization in March 2024, the patient was discharged to [facility] and following that he was discharged home where he has been taking care of by family members. Since then, the patient has done well. The patient came into the emergency department as he has stated that he has been feeling more short of breath and his dyspnea is occurring in episodes. Nevertheless, he has remained hemodynamically stable. He remains on 35 to 40% trach collar without development of any significant respiratory secretions. Blood work has been essentially stable. The white cell count at time of admission was at 5.4 with a hemoglobin of 8.3 and a platelet count of 181. Sodium levels at 139, bicarb is at 33, BUN 23 with a creatinine of 0.35. Troponins were negative. LFTs are essentially within normal limits. Total protein was at 7.4 with an albumin of 3.5. The viral screen was negative in the emergency department. Also, the patient was given a chest x-ray that showed smaller lung volumes and poor respiratory effort. There is some cardiomegaly. No acute airspace disease or consolidation. His EKG showed a normal sinus mechanism. Based on that, the patient was hospitalized in the pulmonary consultation was requested. He was started on empiric antibiotic coverage with IV Rocephin. Noted the patient is bedridden. He has chronic muscle atrophy and contractures in his lower extremities. He remains on therapeutic dose of Lovenox 90 mg subcu every 12 hours. On 06/21/2024, the patient feels that something is obstructing his airways. At times he is feeling short of breath. No clear explanation. There may be some anatomic problems and obstruction in his trachea as during my early bronchoscopies, I noted that the patient has an area of tracheal stenosis at the site of previous tracheostomy tube insertion. I think it would be douglas to reevaluate this patient's airway right bronchoscopy and document patency of the airway. No significant respiratory secretions for now. No fever. No chills. Blood cultures are still negative. White cell count is 6.7, hemoglobin is 8.5, BUN is 12 with a creatinine of 0.36. He remains on a 40% trach collar. Remains on TPN for nutritional support Patient was seen today on06/22/24, patient was transferred to the ICU yesterday because he was not ventilating well with his tracheostomy and trach collar. Patient was placed on mechanical ventilation, however his tracheostomy is a cuffless trach, and he was still losing significant amount of volume while on mechanical ventilation. Today I had to change his tracheostomy to a different tracheostomy same size and length, however it has a cough on it and we could inflate the cough to prevent any further volume loss on mechanical ventilation. And I was able to do so at bedside. Chest x-ray clearly showed evidence of extensive left lower lobe airspace disease and the patient underwent bronchoscopy and BAL of the left lower lobe. In the meantime I went ahead after placing any tracheostomy and placed the patient and mechanical ventilation and on propofol. Patient is now on tidal volume of 500 rate of 20 FiO2 100% and PEEP of 5, ABG is pending. Earlier today, patient was requiring a bit of norepinephrine at 0.06 mcg/kg/min he is also on TPN at 75 cc/h. WBC count 6.2 hemoglobin 9.1. ABG earlier today showed a pO2 of 65 pCO2 93 pH of 7.16 and this was on trach collar. On mechanical ventilation with volume leak and loss patient had a pO2 of 91 pCO2 62 pH of 7.31 but as the day went by he was having more volume loss requiring a tracheostomy tube change. Basic metabolic profile is normal, renal profile is normal. Chest x-ray as noted earlier extensive infiltrate involving the left lower lobe noted. Patient was seen and evaluated today on 06/23/2024, patient remains in the ICU, intubated mechanically ventilated, patient did quite well since we had the tracheostomy changed to a cuffed tracheostomy in part same size. He is now on assist-control rate of 20 tidal volume 500 FiO2 35% and PEEP of 5 ABG showed a pO2 of 91 pCO2 62 pH of 7.31. Patient remains on TPN at 50 mL/h propofol at 20 mcg/kg/min norepinephrine is still needed at 0.12 mcg/kg/min patient remains on cefepime he is also on Lovenox 90 mg subcu every 12 hours. Labs today showed WBC of 6.49 hemoglobin of 7 potassium is a bit low at 3.2 otherwise electrolytes are normal renal profile is normal procalcitonin level is 0.59, C. difficile screen is negative chest x-ray showed significant improvement in his left lower lobe infiltrate Patient was seen today on 06/24/2024, remains in the ICU, intubated and mechanically ventilated. Patient is on assist-control rate of 20 tidal volume 500 FiO2 35% PEEP of 5. ABG was not done today. Patient remains on propofol at 30 mcg/kg/min TPN at 50 cc/h norepinephrine at 0.08 mcg/kg/min remains on cefepime. Sputum cultures showing gram-negative bacilli, BAL showed no growth, chest x-ray showed improvement in left lower lobe pneumonia. WBC count is 5.84 hemoglobin 7.7 electrolytes showed low potassium of 3.2 BUN is normal creatinine is normal, procalcitonin level on this admission was 0.59, C. difficile is negative. Seen today on 06/25/2024, patient remains in the ICU, intubated and mechanically ventilated, patient has a tracheostomy in place, he is on assist-control rate of 20 tidal volume 500 FiO2 35% and PEEP of 5 no ABG was done today. Chest x-ray continues to show improvement in his left lower lobe infiltrate/pneumonia WBC count is 5.4 hemoglobin 8.2 platelets are 155 electrolytes are normal renal profile is normal patient remains on nutritional support/TPN, he is on norepinephrine 0.06 mcg/kg/min propofol at 10 mcg/kg/min TPN at 50 cc/h. Remains on cefepime for his gram-negative pneumonia, patient failed pressure support and CPAP yesterday, he lasted less than half an hour. Will try again today with a pressure support of 12 or 14 and CPAP, and if he does well with pressure support and CPAP, may eventually changed the patient to a trach collar as he was prior to all of this. Patient was seen today on 06/26/2024, remains in the ICU, intubated and mechanically ventilated, patient has tracheostomy in place, he is on assist- control rate of 20 tidal volume 500 FiO2 35% PEEP of 5 yesterday he tolerated pressure support of 12 and CPAP until early evening, and at night patient was placed back on assist-control mode of mechanical ventilation he is now on assist-control mode of mechanical ventilation, and I plan to put him back on pressure support and CPAP and if tolerated may switch him to trach collar. Remains on TPN at 50 cc/h. Chest x-ray showing mostly basilar atelectasis, no evidence of pulmonary edema. Patient does have atelectatic changes and low lung volumes. WBC count is 4.7 hemoglobin 7.6 electrolytes are normal renal profile is normal. Seen today on 06/27/2024, remains in the ICU, patient tolerated trach collar since yesterday, and has not been back on the ventilator for the last almost 24 hours. Doing well, he is on 35 % FiO2 trach collar, WBC count today is 5.27 hemoglobin 7.3 electrolytes are normal renal profile is normal Objective - Vital Signs Vital signs: Vital Signs Temp 98.1 F 06/27/24 12:00 Pulse 81 06/27/24 12:00 Resp 21 06/27/24 12:00 BP 111/57 06/27/24 12:00 Pulse Ox 100 06/27/24 12:00 FiO2 35 06/27/24 12:00 Intake & Output 06/26/24 06/27/24 06/27/24 18:59 06:59 18:59 Intake Total 120 1295 360 Output Total 3220 1985 285 Balance -3100 -690 75 Weight 96.1 kg 93.2 kg Intake: IV 120 110 360 KVO 120 110 110 Mvi, Adult No.4 with Vit 250 K 10 ml Trace (Conc-1Ml/ Dose) 1 ml Potassium Chloride 40 meq In Amino Acid 5%-D20w+Lytes*E* 1, 000 ml @ 50 mls/hr IV . [id number] [facility] Rx#:[id number] Intake, IV Titration 1185 Amount Ceftazidime/Avibactam 2.5 200 gm In Sodium Chloride 0. 9% 100 ml @ 50 mls/hr IVPB Q8H [facility] Rx#: [id number] Mvi, Adult No.4 with Vit 985 K 10 ml Trace (Conc-1Ml/ Dose) 1 ml Potassium Chloride 40 meq In Amino Acid 5%-D20w+Lytes*E* 1, 000 ml @ 50 mls/hr IV . [id number] [facility] Rx#:[id number] Output: Gastric Drainage 200 Urine 820 685 285 Stool 2400 1100 Other: Voiding Method Indwelling Catheter Indwelling Catheter Indwelling Catheter - Exam GENERAL: A 48-year-old male patient, resting in bed, on 35% FiO2 trach collar Head exam was generally normal. There was no scleral icterus or corneal arcus. Mucous membranes were moist. HEENT: No scleral icterus. No conjunctival pallor. Normocephalic, atraumatic. Tracheostomy tube seems to be intact CARDIOVASCULAR: S1 and S2 present. No murmurs, rubs, or gallops. PULMONARY: Diminished breath sounds were bilaterally. No crackles rhonchi or wheezes ABDOMEN: Soft, nontender, nondistended, normoactive bowel sounds. No palpable organomegaly. Functioning ileostomy. 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 EXTREMITIES: No cyanosis, clubbing, or pedal edema. Right-sided BKA noted. NEUROLOGICAL: Profound weakness in all 4 extremities, weak cough, extensive muscle atrophy in all 4 extremities. Awake follows instructions asking for ice chips SKIN: No rashes. No open wounds. - Labs CBC & Chem 7: 06/27/24 03:25 06/27/24 03:25 Labs: Abnormal Lab Results - Last 24 Hours (Table) 06/27/24 06/27/24 Range/Units 03:25 03:25 RBC 2.92 L (4.40-5.60) 10*6/uL Hgb 7.3 L (13.0-17.0) g/dL Hct 26.0 L (39.6-50.0) % MCH 25.0 L (27.0-32.0) pg MCHC 28.1 L (32.0-37.0) g/dL Plt Count 132 L (140-440) 10*3/uL Sodium 134 L (137-145) mmol/L Creatinine 0.34 L (0.66-1.25) mg/dL Glucose 103 H (74-99) mg/dL Microbiology - Last 24 Hours (Table) 06/22/24 15:00 Gram Stain - Preliminary Bronchoalviolar Lavage - Right Bronchial Washings Culture - Preliminary Pseudomonas aeruginosa Corynebacterium striatum group Assessment and Plan Assessment: Impression: Acute on chronic hypoxic and hypercapnic respiratory failure, multifactorial Acute left lower lobe pneumonia Tracheal stenosis at the site of the previously inserted tracheostomy tube, vis ualized on most recent bronchoscopy. Previous history of recurrent ventilator dependent respiratory failure, secondary to pneumonia and mucous plugging. The patient has undergone previous bronchoscopies and cultures from bronchoscopy on 12/31/2023 was positive for MRSA and subsequent bronchoscopy on 01/03/2024 was positive for Klebsiella pneumoniae and Bella glabrata. Most recent sputum analysis from 02/26/2024 and 03/17/2024 was positive for Pseudomonas aeruginosa and the patient was treated successfully. Status post bronchoscopy and BAL of left lower lobe on 06/22/2024, with improvement noted in his left lower lobe pneumonia cultures/BAL from the bronchoscopy are negative although sputum earlier was positive for gram-negative bacilli. Previous episodes of sepsis secondary to pneumonia Crohn's disease, with previous complication of bowel perforation s/p colectomy and diverting ileostomy. The patient also has had previous history of abdominal wall bleeding there is currently inactive and stable. The patient has a high output ileostomy TPN for nutritional support Tracheobronchomalacia History of DVT, on therapeutic dose of Lovenox CVA/TIA, with residual left-sided weakness Right BKA History of asystole/cardiac arrest in 2021 Hypotension requiring norepinephrine, possible sepsis and septic shock. Recommendation: Continue patient on trach collar Continue to monitor in ICU Continue antibiotics Continue bronchodilators Continue nutritional support/TPN GI DVT prophylaxis Continue TPN Will continue to follow Time with Patient: Less than 30
[2024-06-27] MEDS: MVI, ADULT NO.4 WITH VIT K 10 ML, TRACE (CONC-1ML/DOSE) 1 ML, POTASSIUM CHLORIDE 40 MEQ... IV SCH (20:41)
--- NOTE | 2024-06-27 21:49 | P.PN ---
Subjective Progress Note Date: 06/27/24 Patient admitted for bilateral cramping due to pneumonia gram-negative organism is not identified yet patient had Pseudomonas in the past patient underwent bronchoscopy patient remains on mechanical ventilation broad-spectrum antibiotics patient has a tracheostomy in place. Patient underwent bronchoalveolar lavage. 06/26/2024 Patient is evaluated in the ICU. Remains on the mechanical ventilator with FiO2 of 40%. Sputum culture reveals pseudomonas aeruginosa, corynebacterium striatum group. He remains on antibiotics with IV ceftazidime/Avibactam. TPN infusing. Labs today reveal white blood cell count 4.72, hgb 7.6, sodium 135, potassium 4.0, BUN 13, creatinine 0.39. Magnesium 1.9. Triglycerides of 183.00. 06/28/2023 Patient is evaluated in the intensive care unit. He is currently on the trach collar. Awake alert and oriented. Chest xray today shows left lower lobe atelectasis or pneumonia. Per mother at the bedside he was only home from the [facility] for one day prior to returning to the hospital. He will likely need to return to [facility] on [place]. Remains on TPN. White blood cell count 5.07, hgb 7.3, sodium 134, BUN 11, creatinine 0.34. Unable to complete review of systems as patient is currently intubated /trach in place. PHYSICAL EXAMINATION: GENERAL: Patient is awake alert oriented x3. HEENT: Pupils are round and equally reacting to light. EOMI. No scleral icterus. No conjunctival pallor. Normocephalic, atraumatic. No pharyngeal erythema. No thyromegaly. Tracheostomy in place. CARDIOVASCULAR: S1 and S2 present. No murmurs, rubs, or gallops. PULMONARY: Chest is clear to auscultation, no wheezing or crackles. ABDOMEN: Soft, nontender, nondistended, normoactive bowel sounds. No palpable organomegaly. MUSCULOSKELETAL: No joint swelling or deformity. EXTREMITIES: No cyanosis, clubbing, or pedal edema. NEUROLOGICAL: Sedated at this time SKIN: No rashes. Assessment and plan Bilateral gram-negative pneumonia possibility of aspiration infectious disease and multiple other consultants are following the patient - Acute respiratory failure requiring mechanical ventilation status post bronchoalveolar lavage; cultures growing pseudomonas and corynebacterium. Art sudhakar has been extubated and tolerating the trach collar. - Crohn's disease with ileostomy in the past patient is presently on TPN - Tracheobronchomalacia - CVA TIA in the past - History of DVT for which patient is on anticoagulation DVT prophylaxis: On full anticoagulation for history of DVT in the past The impression and plan of care has been dictated by Coral Medina, Nurse Practitioner as directed. Dr. Mo MD I have performed a history and physical examination and medical decision making of this patient, discussed the same with the dictator, and agree with the dictators assessment and plan as written, documented as a scribe. Based on total visit time, I have performed more than 50% of this visit. Objective - Vital Signs Vital signs: Vital Signs Temp 99.5 F 06/27/24 16:00 Pulse 89 06/27/24 20:48 Resp 26 H 06/27/24 19:00 BP 101/55 06/27/24 19:00 Pulse Ox 100 06/27/24 19:00 FiO2 35 06/27/24 16:00 Intake & Output 06/27/24 06/27/24 06/28/24 06:59 18:59 06:59 Intake Total 1295 800 Output Total 1985 620 30 Balance -690 180 -30 Weight 93.2 kg Intake: IV 110 800 Ceftazidime/Avibactam 2.5 100 gm In Sodium Chloride 0. 9% 100 ml @ 50 mls/hr IVPB Q8H [facility] Rx#: [id number] KVO 110 200 Mvi, Adult No.4 with Vit 500 K 10 ml Trace (Conc-1Ml/ Dose) 1 ml Potassium Chloride 40 meq In Amino Acid 5%-D20w+Lytes*E* 1, 000 ml @ 50 mls/hr IV . [id number] [facility] Rx#:[id number] Intake, IV Titration 1185 Amount Ceftazidime/Avibactam 2.5 200 gm In Sodium Chloride 0. 9% 100 ml @ 50 mls/hr IVPB Q8H [facility] Rx#: [id number] Mvi, Adult No.4 with Vit 985 K 10 ml Trace (Conc-1Ml/ Dose) 1 ml Potassium Chloride 40 meq In Amino Acid 5%-D20w+Lytes*E* 1, 000 ml @ 50 mls/hr IV . [id number] [facility] Rx#:[id number] Output: Gastric Drainage 200 Urine 685 620 30 Stool 1100 Other: Voiding Method Indwelling Catheter Indwelling Catheter - Labs CBC & Chem 7: 06/27/24 03:25 06/27/24 03:25 Labs: Abnormal Lab Results - Last 24 Hours (Table) 06/27/24 06/27/24 Range/Units 03:25 03:25 RBC 2.92 L (4.40-5.60) 10*6/uL Hgb 7.3 L (13.0-17.0) g/dL Hct 26.0 L (39.6-50.0) % MCH 25.0 L (27.0-32.0) pg MCHC 28.1 L (32.0-37.0) g/dL Plt Count 132 L (140-440) 10*3/uL Sodium 134 L (137-145) mmol/L Creatinine 0.34 L (0.66-1.25) mg/dL Glucose 103 H (74-99) mg/dL Microbiology - Last 24 Hours (Table) 06/22/24 11:44 Blood Culture - Final Blood 06/22/24 15:00 Gram Stain - Preliminary Bronchoalviolar Lavage - Right Bronchial Washings Culture - Preliminary Pseudomonas aeruginosa Corynebacterium striatum group Assessment and Plan Time with Patient: Less than 30
[2024-06-28 03:35] LABS: Basophils # (A) 0.03 10*3/uL (0.00-0.10); Basophils % (A) 0.5 %; Eosinophils # (A) 0.21 10*3/uL (0.04-0.35); Eosinophils % (A) 3.8 %; HCT 26.2 % (39.6-50.0); HGB 7.4 g/dL (13.0-17.0); Lymphocytes # (A) 1.46 10*3/uL (0.90-5.00); Lymphocytes % (A) 26.3 %; MCH 25.3 pg (27.0-32.0); MCHC 28.2 g/dL (32.0-37.0); MCV 89.7 fL (80.0-97.0); Mean Platelet Volume 12.1 fL (9.5-12.2); Monocytes # (A) 0.44 10*3/uL (0.20-1.00); Monocytes % (A) 7.9 %; Neutrophils % (A) 61.3 %; Platelet Count 151 10*3/uL (140-440); RBC 2.92 10*6/uL (4.40-5.60); WBC 5.55 10*3/uL (4.50-10.00)
[2024-06-28 03:48] LABS: African American GFR (CKD) >90 (>60 ml/min/1.73 sqM); Anion Gap 1 mmol/L; Blood Urea Nitrogen 11 mg/dL (9-20); Calcium 8.8 mg/dL (8.4-10.2); Carbon Dioxide 33 mmol/L (22-30); Chloride 101 mmol/L (98-107); Glucose 107 mg/dL (74-99); Magnesium 1.9 mg/dL (1.6-2.3); Non-African American GFR(CKD) >90 (>60 ml/min/1.73 sqM); Phosphorus 2.6 mg/dL (2.5-4.5); Sodium 135 mmol/L (137-145)
[2024-06-28 04:29] LABS: Potassium 4.1 mmol/L (3.5-5.1)
--- NOTE | 2024-06-28 08:18 | XR ---
EXAMINATION TYPE: XR chest 1V DATE OF EXAM: 06/28/2024 4:55 AM COMPARISON: 06/27/2024 CLINICAL INDICATION: Male, 49 years old with history of On trach collar, TECHNIQUE: XR chest 1V view(s) obtained. FINDINGS: The heart size is normal. The pulmonary vasculature is normal. Mild infiltrate at the left base. Small left pleural effusion is present. Tracheostomy tube tip is above the avery. Nasogastric tube transverses the thorax. Left central veno us catheter tip is in the distal superior vena cava right atrial junction IMPRESSION: 1. Developing left lower lobe infiltrate. Small effusion may be present. [facility], , 06/28/2024 8:16 AM
--- NOTE | 2024-06-28 11:25 | P.PN ---
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 Patient is obese and he has developed chronic generalized weakness, respiratory insufficiency with recurrent pneumonias requiring previous intubation and mechanical ventilation. The patient has also been treated for episodes of pneumonias in the past including pseudomonal pneumonia earlier this year. He does have also an area of tracheal stenosis related to previous tracheal manipulation and tracheostomy tube insertion. Currently he has a permanent tracheostomy tube in place to secure his airways. 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 Following his most recent hospitalization in March 2024, the patient was discharged to [facility] and following that he was discharged home where he has been taking care of by family members. Since then, the patient has done well. The patient came into the emergency department as he has stated that he has been feeling more short of breath and his dyspnea is occurring in episodes. Nevertheless, he has remained hemodynamically stable. He remains on 35 to 40% trach collar without development of any significant respiratory secretions. Blood work has been essentially stable. The white cell count at time of admission was at 5.4 with a hemoglobin of 8.3 and a platelet count of 181. Sodium levels at 139, bicarb is at 33, BUN 23 with a creatinine of 0.35. Troponins were negative. LFTs are essentially within normal limits. Total protein was at 7.4 with an albumin of 3.5. The viral screen was negative in the emergency department. Also, the patient was given a chest x-ray that showed smaller lung volumes and poor respiratory effort. There is some cardiomegaly. No acute airspace disease or consolidation. His EKG showed a normal sinus mechanism. Based on that, the patient was hospitalized in the pulmonary consultation was requested. He was started on empiric antibiotic coverage with IV Rocephin. Noted the patient is bedridden. He has chronic muscle atrophy and contractures in his lower extremities. He remains on therapeutic dose of Lovenox 90 mg subcu every 12 hours. On 06/21/2024, the patient feels that something is obstructing his airways. At times he is feeling short of breath. No clear explanation. There may be some anatomic problems and obstruction in his trachea as during my early bronchoscopies, I noted that the patient has an area of tracheal stenosis at the site of previous tracheostomy tube insertion. I think it would be douglas to reevaluate this patient's airway right bronchoscopy and document patency of the airway. No significant respiratory secretions for now. No fever. No chills. Blood cultures are still negative. White cell count is 6.7, hemoglobin is 8.5, BUN is 12 with a creatinine of 0.36. He remains on a 40% trach collar. Remains on TPN for nutritional support Patient was seen today on06/22/24, patient was transferred to the ICU yesterday because he was not ventilating well with his tracheostomy and trach collar. Patient was placed on mechanical ventilation, however his tracheostomy is a cuffless trach, and he was still losing significant amount of volume while on mechanical ventilation. Today I had to change his tracheostomy to a different tracheostomy same size and length, however it has a cough on it and we could inflate the cough to prevent any further volume loss on mechanical ventilation. And I was able to do so at bedside. Chest x-ray clearly showed evidence of extensive left lower lobe airspace disease and the patient underwent bronchoscopy and BAL of the left lower lobe. In the meantime I went ahead after placing any tracheostomy and placed the patient and mechanical ventilation and on propofol. Patient is now on tidal volume of 500 rate of 20 FiO2 100% and PEEP of 5, ABG is pending. Earlier today, patient was requiring a bit of norepinephrine at 0.06 mcg/kg/min he is also on TPN at 75 cc/h. WBC count 6.2 hemoglobin 9.1. ABG earlier today showed a pO2 of 65 pCO2 93 pH of 7.16 and this was on trach collar. On mechanical ventilation with volume leak and loss patient had a pO2 of 91 pCO2 62 pH of 7.31 but as the day went by he was having more volume loss requiring a tracheostomy tube change. Basic metabolic profile is normal, renal profile is normal. Chest x-ray as noted earlier extensive infiltrate involving the left lower lobe noted. Patient was seen and evaluated today on 06/23/2024, patient remains in the ICU, intubated mechanically ventilated, patient did quite well since we had the tracheostomy changed to a cuffed tracheostomy in part same size. He is now on assist-control rate of 20 tidal volume 500 FiO2 35% and PEEP of 5 ABG showed a pO2 of 91 pCO2 62 pH of 7.31. Patient remains on TPN at 50 mL/h propofol at 20 mcg/kg/min norepinephrine is still needed at 0.12 mcg/kg/min patient remains on cefepime he is also on Lovenox 90 mg subcu every 12 hours. Labs today showed WBC of 6.49 hemoglobin of 7 potassium is a bit low at 3.2 otherwise electrolytes are normal renal profile is normal procalcitonin level is 0.59, C. difficile screen is negative chest x-ray showed significant improvement in his left lower lobe infiltrate Patient was seen today on 06/24/2024, remains in the ICU, intubated and mechanically ventilated. Patient is on assist-control rate of 20 tidal volume 500 FiO2 35% PEEP of 5. ABG was not done today. Patient remains on propofol at 30 mcg/kg/min TPN at 50 cc/h norepinephrine at 0.08 mcg/kg/min remains on cefepime. Sputum cultures showing gram-negative bacilli, BAL showed no growth, chest x-ray showed improvement in left lower lobe pneumonia. WBC count is 5.84 hemoglobin 7.7 electrolytes showed low potassium of 3.2 BUN is normal creatinine is normal, procalcitonin level on this admission was 0.59, C. difficile is negative. Seen today on 06/25/2024, patient remains in the ICU, intubated and mechanically ventilated, patient has a tracheostomy in place, he is on assist-control rate of 20 tidal volume 500 FiO2 35% and PEEP of 5 no ABG was done today. Chest x-ray continues to show improvement in his left lower lobe infiltrate/pneumonia WBC count is 5.4 hemoglobin 8.2 platelets are 155 electrolytes are normal renal profile is normal patient remains on nutritional support/TPN, he is on norepinephrine 0.06 mcg/kg/min propofol at 10 mcg/kg/min TPN at 50 cc/h. Remains on cefepime for his gram-negative pneumonia, patient failed pressure support and CPAP yesterday, he lasted less than half an hour. Will try again today with a pressure support of 12 or 14 and CPAP, and if he does well with pressure support and CPAP, may eventually changed the patient to a trach collar as he was prior to all of this. Patient was seen today on 06/26/2024, remains in the ICU, intubated and mechanically ventilated, patient has tracheostomy in place, he is on assist- control rate of 20 tidal volume 500 FiO2 35% PEEP of 5 yesterday he tolerated pressure support of 12 and CPAP until early evening, and at night patient was placed back on assist-control mode of mechanical ventilation he is now on assist-control mode of mechanical ventilation, and I plan to put him back on pressure support and CPAP and if tolerated may switch him to trach collar. Remains on TPN at 50 cc/h. Chest x-ray showing mostly basilar atelectasis, no evidence of pulmonary edema. Patient does have atelectatic changes and low lung volumes. WBC count is 4.7 hemoglobin 7.6 electrolytes are normal renal profile is normal. Seen today on 06/27/2024, remains in the ICU, patient tolerated trach collar since yesterday, and has not been back on the ventilator for the last almost 24 hours. Doing well, he is on 35 % FiO2 trach collar, WBC count today is 5.27 hemoglobin 7.3 electrolytes are normal renal profile is normal Seen today on 06/28/2024, patient remains in the ICU, on trach collar, and 35% FiO2, the cuff on the tracheostomy has been deflated, patient is tolerating clear liquid diet, and I am planning to advance the diet as tolerated patient remains on TPN in the meantime at 50 cc/h, overall the patient is steadily improving. And has been off mechanical ventilation now for the last 2 days. Chest x-ray showed improvement in his left lower lobe pneumonia patient did have to go bronchoscopy and BAL of the left lower lobe at 1 point few days ago. His WBC count is 5.5 hemoglobin 7.4 electrolytes are normal renal profile is normal. Objective - Vital Signs Vital signs: Vital Signs Temp 98.4 F 06/28/24 08:00 Pulse 80 06/28/24 11:16 Resp 21 06/28/24 11:00 BP 109/59 06/28/24 11:00 Pulse Ox 100 06/28/24 11:00 FiO2 35 06/28/24 08:00 Intake & Output 06/27/24 06/28/24 06/28/24 18:59 06:59 18:59 Intake Total 800 760 380 Output Total 620 1160 240 Balance 180 -400 140 Weight 91.8 kg Intake: IV 800 760 380 Ceftazidime/Avibactam 2.5 100 100 100 gm In Sodium Chloride 0. 9% 100 ml @ 50 mls/hr IVPB Q8H ANNIE Rx#: [id number] KVO 200 110 30 Mvi, Adult No.4 with Vit 500 550 250 K 10 ml Trace (Conc-1Ml/ Dose) 1 ml Potassium Chloride 40 meq In Amino Acid 5%-D20w+Lytes*E* 1, 000 ml @ 50 mls/hr IV . [id number] ANNIE Rx#:[id number] Output: Gastric Drainage 250 Urine 620 610 240 Stool 300 Other: Voiding Method Indwelling Catheter Indwelling Catheter - Exam GENERAL: A 48-year-old male patient, resting in bed, on 35% FiO2 trach collar Head exam was generally normal. There was no scleral icterus or corneal arcus. Mucous membranes were moist. HEENT: No scleral icterus. No conjunctival pallor. Normocephalic, atraumatic. Tracheostomy tube seems to be intact CARDIOVASCULAR: S1 and S2 present. No murmurs, rubs, or gallops. PULMONARY: Diminished breath sounds were bilaterally. No crackles rhonchi or wheezes ABDOMEN: Soft, nontender, nondistended, normoactive bowel sounds. No palpable organomegaly. Functioning ileostomy. 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 EXTREMITIES: No cyanosis, clubbing, or pedal edema. Right-sided BKA noted. NEUROLOGICAL: Profound weakness in all 4 extremities, weak cough, extensive muscle atrophy in all 4 extremities. Awake follows instructions asking for ice chips SKIN: No rashes. No open wounds. - Labs CBC & Chem 7: 06/28/24 02:58 06/28/24 02:58 Labs: Abnormal Lab Results - Last 24 Hours (Table) 06/28/24 06/28/24 Range/Units 02:58 02:58 RBC 2.92 L (4.40-5.60) 10*6/uL Hgb 7.4 L (13.0-17.0) g/dL Hct 26.2 L (39.6-50.0) % MCH 25.3 L (27.0-32.0) pg MCHC 28.2 L (32.0-37.0) g/dL Sodium 135 L (137-145) mmol/L Carbon Dioxide 33 H (22-30) mmol/L Creatinine 0.40 L (0.66-1.25) mg/dL Glucose 107 H (74-99) mg/dL Microbiology - Last 24 Hours (Table) 06/22/24 11:44 Blood Culture - Final Blood 06/22/24 15:00 Gram Stain - Preliminary Bronchoalviolar Lavage - Right Bronchial Washings Culture - Preliminary Pseudomonas aeruginosa Corynebacterium striatum group Assessment and Plan Assessment: Impression: Acute on chronic hypoxic and hypercapnic respiratory failure, multifactorial Acute left lower lobe pneumonia Tracheal stenosis at the site of the previously inserted tracheostomy tube, visualized on most recent bronchoscopy. Previous history of recurrent ventilator dependent respiratory failure, secondary to pneumonia and mucous plugging. The patient has undergone previous bronchoscopies and cultures from bronchoscopy on 12/31/2023 was positive for MRSA and subsequent bronchoscopy on 01/03/2024 was positive for Klebsiella pneumoniae and Bella glabrata. Most recent sputum analysis from 02/26/2024 an d 03/17/2024 was positive for Pseudomonas aeruginosa and the patient was treated successfully. Status post bronchoscopy and BAL of left lower lobe on 06/22/2024, with improvement noted in his left lower lobe pneumonia cultures/BAL from the bronchoscopy are negative although sputum earlier was positive for gram-negative bacilli. Previous episodes of sepsis secondary to pneumonia Crohn's disease, with previous complication of bowel perforation s/p colectomy and diverting ileostomy. The patient also has had previous history of abdominal wall bleeding there is currently inactive and stable. The patient has a high output ileostomy TPN for nutritional support Tracheobronchomalacia History of DVT, on therapeutic dose of Lovenox CVA/TIA, with residual left-sided weakness Right BKA History of asystole/cardiac arrest in 2021 Hypotension requiring norepinephrine, possible sepsis and septic shock. Recommendation: Continue patient on trach collar Continue deflating the cuff on the tracheostomy tube Advance diet as tolerated he is now on liquid diet Continue to monitor in ICU Continue antibiotics Continue bronchodilators Continue nutritional support/TPN GI DVT prophylaxis Continue TPN Will continue to follow, long-term prognosis remains poor and guarded patient has multiple complex issues and multiple comorbidities. Time with Patient: Less than 30
[2024-06-28] MEDS: CIPROFLOXACIN-DEXAMETH 0.3-0.1% DROPS 7.5 ML BTL RIGHT EAR SCH (14:52)
[2024-06-28] MEDS: MVI, ADULT NO.4 WITH VIT K 10 ML, TRACE (CONC-1ML/DOSE) 1 ML, POTASSIUM CHLORIDE 40 MEQ... IV SCH (16:08)
--- NOTE | 2024-06-28 21:22 | P.PN ---
Subjective Progress Note Date: 06/27/24 Principal diagnosis: Reason for follow-up abnormal chest x-ray question pneumonia Patient is a 49-year-old male with a past medical history significant for chron's disease in this patient who did have multiple surgeries and complication as far as abdominal surgeries did have history of recurrent pneumonia vent dependent respiratory failure currently on a trach collar CVA TIA patient has been brought into the hospital concerning for chest pain patient also have abnormal chest x-ray concern for possible pneumonia prompting this consultation. On today's evaluation that is 06/27/2024, patient did not have any fever and denies any chills, patient is breathing comfortably on 35% FiO2 trach collar patient with no chest pain or cough patient did not have any abdominal pain nausea vomiting, feeling better Patient white count is 5.07, creatinine 0.34 Objective - Vital Signs Vital signs: Vital Signs Temp 98.1 F 06/27/24 12:00 Pulse 81 06/27/24 12:00 Resp 21 06/27/24 12:00 BP 111/57 06/27/24 12:00 Pulse Ox 100 06/27/24 12:00 FiO2 35 06/27/24 12:00 Intake & Output 06/26/24 06/27/24 06/27/24 18:59 06:59 18:59 Intake Total 120 1295 360 Output Total 3220 1985 285 Balance -3100 -690 75 Weight 96.1 kg 93.2 kg Intake: IV 120 110 360 KVO 120 110 110 Mvi, Adult No.4 with Vit 250 K 10 ml Trace (Conc-1Ml/ Dose) 1 ml Potassium Chloride 40 meq In Amino Acid 5%-D20w+Lytes*E* 1, 000 ml @ 50 mls/hr IV . [id number] ANNIE Rx#:[id number] Intake, IV Titration 1185 Amount Ceftazidime/Avibactam 2.5 200 gm In Sodium Chloride 0. 9% 100 ml @ 50 mls/hr IVPB Q8H ANNIE Rx#: [id number] Mvi, Adult No.4 with Vit 985 K 10 ml Trace (Conc-1Ml/ Dose) 1 ml Potassium Chloride 40 meq In Amino Acid 5%-D20w+Lytes*E* 1, 000 ml @ 50 mls/hr IV . [id number] ANNIE Rx#:[id number] Output: Gastric Drainage 200 Urine 820 685 285 Stool 2400 1100 Other: Voiding Method Indwelling Catheter Indwelling Catheter Indwelling Catheter - Exam GENERAL DESCRIPTION: Middle-age male lying in bed in no distress RESPIRATORY SYSTEM: Unlabored breathing , decreased breath sounds at bases HEART: S1 S2 regular rate and rhythm , ABDOMEN: Soft , no tenderness EXTREMITIES: No edema feet - Labs CBC & Chem 7: 06/28/24 02:58 06/28/24 02:58 Labs: Abnormal Lab Results - Last 24 Hours (Table) 06/27/24 06/27/24 Range/Units 03:25 03:25 RBC 2.92 L (4.40-5.60) 10*6/uL Hgb 7.3 L (13.0-17.0) g/dL Hct 26.0 L (39.6-50.0) % MCH 25.0 L (27.0-32.0) pg MCHC 28.1 L (32.0-37.0) g/dL Plt Count 132 L (140-440) 10*3/uL Sodium 134 L (137-145) mmol/L Creatinine 0.34 L (0.66-1.25) mg/dL Glucose 103 H (74-99) mg/dL Microbiology - Last 24 Hours (Table) 06/22/24 15:00 Gram Stain - Preliminary Bronchoalviolar Lavage - Right Bronchial Washings Culture - Preliminary Pseudomonas aeruginosa Corynebacterium striatum group Assessment and Plan (1) Abnormal chest x-ray Current Visit: Yes Status: Acute Code(s): R93.89 - ABNORMAL FINDINGS ON DX IMAGING OF OTH BODY STRUCTURES SNOMED Code(s): 013444186 (2) Penicillin allergy Current Visit: Yes Status: Acute Code(s): Z88.0 - ALLERGY STATUS TO PENICILLIN SNOMED Code(s): 13344261 (3) Pneumonia Current Visit: No Status: Acute Code(s): J18.9 - PNEUMONIA, UNSPECIFIED ORGANISM SNOMED Code(s): 720686546 (4) Sepsis Current Visit: No Status: Acute Code(s): A41.9 - SEPSIS, UNSPECIFIED ORGA NISM SNOMED Code(s): 32499592 Plan: 1patient did have worsening of his respiratory status requiring intubation and transferred to ICU also spiked a fever And did have a heart rate in the 90s medically ready for SIRS/sepsis source likely left lower lobe pneumonia concerning for possible gram-negative in this patient who did have Zosyn aller gies that would limit the number of antibiotics safe to use. 2patient is status post bronchoscopy lavage as well as sputum culture which is currently growing multidrug-resistant Pseudomonas aeruginosa resistant to meropenem sensitive to Zosyn however the patient is allergic to Zosyn 3patient currently being treated with Avycaz because of multiresistant Pseudomonas and monitor clinical course closely Mother at the bedside question answered Dictation was produced using [employer] dictation software. please excuse any grammatical, word or spelling errors. Time with Patient: Less than 30
--- NOTE | 2024-06-28 21:23 | P.PN ---
Subjective Progress Note Date: 06/28/24 Principal diagnosis: Reason for follow-up abnormal chest x-ray question pneumonia Patient is a 49-year-old male with a past medical history significant for chron's disease in this patient who did have multiple surgeries and complication as far as abdominal surgeries did have history of recurrent pneumonia vent dependent respiratory failure currently on a trach collar CVA TIA patient has been brought into the hospital concerning for chest pain patient also have abnormal chest x-ray concern for possible pneumonia prompting this consultation. On today's evaluation that is 06/28/2024, Patient is afebrile patient is currently on 20% FiO2/trach collar and and denies having any shortness of breath, the patient denies any chest pain or any worsening cough, the patient denies any nausea vomiting did not have any abdominal pain. Patient white count is 5.55, creatinine 0.40 Objective - Vital Signs Vital signs: Vital Signs Temp 99.5 F 06/28/24 16:00 Pulse 94 06/28/24 20:15 Resp 23 06/28/24 19:00 BP 114/54 06/28/24 19:00 Pulse Ox 92 L 06/28/24 19:00 FiO2 28 06/28/24 16:00 Intake & Output 06/28/24 06/28/24 06/29/24 06:59 18:59 06:59 Intake Total 760 880 60 Output Total 1160 675 55 Balance -400 205 5 Weight 91.8 kg Intake: IV 760 880 60 Ceftazidime/Avibactam 2.5 100 200 gm In Sodium Chloride 0. 9% 100 ml @ 50 mls/hr IVPB Q8H ANNIE Rx#: [id number] KVO 110 80 10 Mvi, Adult No.4 with Vit 550 600 50 K 10 ml Trace (Conc-1Ml/ Dose) 1 ml Potassium Chloride 40 meq In Amino Acid 5%-D20w+Lytes*E* 1, 000 ml @ 50 mls/hr IV . [id number] ANNIE Rx#:[id number] Output: Gastric Drainage 250 Urine 610 675 55 Stool 300 Other: Voiding Method Indwelling Catheter Indwelling Catheter - Exam GENERAL DESCRIPTION: Middle-age male lying in bed in no distress RESPIRATORY SYSTEM: Unlabored breathing , decreased breath sounds at bases HEART: S1 S2 regular rate and rhythm , ABDOMEN: Soft , no tenderness EXTREMITIES: No edema feet - Labs CBC & Chem 7: 06/28/24 02:58 04 02:58 Labs: Abnormal Lab Results - Last 24 Hours (Table) 06/28/24 06/28/24 Range/Units 02:58 02:58 RBC 2.92 L (4.40-5.60) 10*6/uL Hgb 7.4 L (13.0-17.0) g/dL Hct 26.2 L (39.6-50.0) % MCH 25.3 L (27.0-32.0) pg MCHC 28.2 L (32.0-37.0) g/dL Sodium 135 L (137-145) mmol/L Carbon Dioxide 33 H (22-30) mmol/L Creatinine 0.40 L (0.66-1.25) mg/dL Glucose 107 H (74-99) mg/dL Microbiology - Last 24 Hours (Table) 06/22/24 15:00 Gram Stain - Final Bronchoalviolar Lavage - Right Bronchial Washings Culture - Final Pseudomonas aeruginosa Corynebacterium striatum group Assessment and Plan (1) Abnormal chest x-ray Current Visit: Yes Status: Acute Code(s): R93.89 - ABNORMAL FINDINGS ON DX IMAGING OF OTH BODY STRUCTURES SNOMED Code(s): 868543989 (2) Penicillin allergy Current Visit: Yes Status: Acute Code(s): Z88.0 - ALLERGY STATUS TO PENICILLIN SNOMED Code(s): 42725694 (3) Pneumonia Current Visit: No Status: Acute Code(s): J18.9 - PNEUMONIA, UNSPECIFIED ORGANISM SNOMED Code(s): 005577788 (4) Sepsis Current Visit: No Status: Acute Code(s): A41.9 - SEPSIS, UNSPECIFIED ORGAN ISM SNOMED Code(s): 13745989 Plan: 1patient did have worsening of his respiratory status requiring intubation and transferred to ICU also spiked a fever And did have a heart rate in the 90s medically ready for SIRS/sepsis source likely left lower lobe pneumonia concerning for possible gram-negative in this patient who did have Zosyn allerg ies that would limit the number of antibiotics safe to use. 2patient is status post bronchoscopy lavage as well as sputum culture which is currently growing multidrug-resistant Pseudomonas aeruginosa resistant to meropenem sensitive to Zosyn however the patient is allergic to Zosyn 3patient is afebrile white count has been normal to continue with Avycaz because of multiresistant Pseudomonas and plan will be for 10 to 14-day course of therapy depending upon clinical response Mother at the bedside question answered Dictation was produced using [employer] dictation software. please excuse any gram matical, word or spelling errors. Time with Patient: Less than 30
--- NOTE | 2024-06-28 22:31 | P.PN ---
Subjective Progress Note Date: 06/28/24 Patient admitted for bilateral cramping due to pneumonia gram-negative organism is not identified yet patient had Pseudomonas in the past patient underwent bronchoscopy patient remains on mechanical ventilation broad-spectrum antibiotics patient has a tracheostomy in place. Patient underwent bronchoalveolar lavage. 06/26/2024 Patient is evaluated in the ICU. Remains on the mechanical ventilator with FiO2 of 40%. Sputum culture reveals pseudomonas aeruginosa, corynebacterium striatum group. He remains on antibiotics with IV ceftazidime/Avibactam. TPN infusing. Labs today reveal white blood cell count 4.72, hgb 7.6, sodium 135, potassium 4.0, BUN 13, creatinine 0.39. Magnesium 1.9. Triglycerides of 183.00. 06/27/2024 Patient is evaluated in the intensive care unit. He is currently on the trach collar. Awake alert and oriented. Chest xray today shows left lower lobe atelectasis or pneumonia. Per mother at the bedside he was only home from the [facility] for one day prior to returning to the hospital. He will likely need to return to [facility] on DC. Remains on TPN. White blood cell count 5.07, hgb 7.3, sodium 134, BUN 11, creatinine 0.34. 06/28/2024 Patient is eval today in intensive care unit. He is complaining of pain in the right ear manual examination does reveal some erythema of the canal and eardrum. We will add eardrops and monitor for improvement in symptoms. Patient is awake alert oriented he has tolerated trach collar. Chest x-ray today reveals a developing left lower lobe infiltrate with a small effusion which may be present. He continues on IV meropenem for positive sputum and bronchial washings of Pseudomonas aeruginosa and corynebacterium striatum group. Labs today reveal a white blood cell count of 5.55, hemoglobin 7.4, sodium 135, BUN of 11 creatinine 0.40. Review of Systems Constitutional: Denied any fatigue denied any fever. Cardio vascular: denied any chest pain, palpitations Gastrointestinal: denied any nausea, vomiting, diarrhea Pulmonary: Denied any shortness of breath cough Neurologic denied any new focal deficits All inpatient medications were reviewed and appropriate changes in these medications as dictated in the interval history and assessment and plan. PHYSICAL EXAMINATION: GENERAL: Patient is awake alert oriented x3. HEENT: Pupils are round and equally reacting to light. EOMI. No scleral icterus. No conjunctival pallor. Normocephalic, atraumatic. No pharyngeal erythema. No thyromegaly. Tracheostomy in place. CARDIOVASCULAR: S1 and S2 present. No murmurs, rubs, or gallops. PULMONARY: Chest is clear to auscultation, no wheezing or crackles. ABDOMEN: Soft, nontender, nondistended, normoactive bowel sounds. No palpable organomegaly. MUSCULOSKELETAL: No joint swelling or deformity. EXTREMITIES: No cyanosis, clubbing, or pedal edema. NEUROLOGICAL: Sedated at this time SKIN: No rashes. Assessment and plan Bilateral gram-negative pneumonia possibility of aspiration infectious disease and multiple other consultants are following the patient - Acute respiratory failure requiring mechanical ventilation status post bronchoalveolar lavage; cultures growing pseudomonas and corynebacterium. Patient has been extubated and tolerating the trach collar. - Crohn's disease with ileostomy in the past patient is presently on TPN - Right sided otitis media started on Ciprodex eardrops - Tracheobronchomalacia - CVA TIA in the past - History of DVT for which patient is on anticoagulation DVT prophylaxis: On full anticoagulation for history of DVT in the past The impression and plan of care has been dictated by Coral Medina Nurse Practitioner as directed. Dr. Mo MD I have performed a history and physical examination and medical decision making of this patient, discussed the same with the dictator, and agree with the dictators assessment and plan as written, documented as a scribe. Based on total visit time, I have performed more than 50% of this visit. Objective - Vital Signs Vital signs: Vital Signs Temp 99.5 F 06/28/24 16:00 Pulse 94 06/28/24 20:15 Resp 23 06/28/24 19:00 BP 114/54 06/28/24 19:00 Pulse Ox 92 L 06/28/24 19:00 FiO2 28 06/28/24 16:00 Intake & Output 06/28/24 06/28/24 06/29/24 06:59 18:59 06:59 Intake Total 760 880 60 Output Total 1160 675 55 Balance -400 205 5 Weight 91.8 kg Intake: IV 760 880 60 Ceftazidime/Avibactam 2.5 100 200 gm In Sodium Chloride 0. 9% 100 ml @ 50 mls/hr IVPB Q8H [facility] Rx#: [id number] KVO 110 80 10 Mvi, Adult No.4 with Vit 550 600 50 K 10 ml Trace (Conc-1Ml/ Dose) 1 ml Potassium Chloride 40 meq In Amino Acid 5%-D20w+Lytes*E* 1, 000 ml @ 50 mls/hr IV . [id number] [facility] Rx#:[id number] Output: Gastric Drainage 250 Urine 610 675 55 Stool 300 Other: Voiding Method Indwelling Catheter Indwelling Catheter - Labs CBC & Chem 7: 06/28/24 02:58 06/28/24 02:58 Labs: Abnormal Lab Results - Last 24 Hours (Table) 06/28/24 06/28/24 Range/Units 02:58 02:58 RBC 2.92 L (4.40-5.60) 10*6/uL Hgb 7.4 L (13.0-17.0) g/dL Hct 26.2 L (39.6-50.0) % MCH 25.3 L (27.0-32.0) pg MCHC 28.2 L (32.0-37.0) g/dL Sodium 135 L (137-145) mmol/L Carbon Dioxide 33 H (22-30) mmol/L Creatinine 0.40 L (0.66-1.25) mg/dL Glucose 107 H (74-99) mg/dL Microbiology - Last 24 Hours (Table) 06/22/24 15:00 Gram Stain - Final Bronchoalviolar Lavage - Right Bronchial Washings Culture - Final Pseudomonas aeruginosa Corynebacterium striatum group Assessment and Plan Time with Patient: Less than 30
[2024-06-29] MEDS: diphenhydrAMINE 50 MG/ML 1 ML VIAL IM PRN (03:27)
[2024-06-29 06:11] LABS: Basophils # (A) 0.02 10*3/uL (0.00-0.10); Basophils % (A) 0.4 %; Eosinophils # (A) 0.24 10*3/uL (0.04-0.35); Eosinophils % (A) 4.4 %; HCT 27.1 % (39.6-50.0); HGB 7.6 g/dL (13.0-17.0); Lymphocytes # (A) 1.55 10*3/uL (0.90-5.00); Lymphocytes % (A) 28.2 %; MCH 24.8 pg (27.0-32.0); MCV 88.6 fL (80.0-97.0); Mean Platelet Volume 12.2 fL (9.5-12.2); Monocytes # (A) 0.46 10*3/uL (0.20-1.00); Monocytes % (A) 8.4 %; Neutrophils # (A) 3.21 10*3/uL (1.80-7.70); Neutrophils % (A) 58.2 %; Platelet Count 159 10*3/uL (140-440); RBC 3.06 10*6/uL (4.40-5.60); RDW 17.9 % (11.5-14.5)
[2024-06-29 06:33] LABS: African American GFR (CKD) >90 (>60 ml/min/1.73 sqM); Anion Gap 3 mmol/L; Blood Urea Nitrogen 9 mg/dL (9-20); Calcium 9.1 mg/dL (8.4-10.2); Carbon Dioxide 34 mmol/L (22-30); Chloride 98 mmol/L (98-107); Glucose 105 mg/dL (74-99); Magnesium 1.8 mg/dL (1.6-2.3); Non-African American GFR(CKD) >90 (>60 ml/min/1.73 sqM); Phosphorus 2.5 mg/dL (2.5-4.5); Potassium 3.9 mmol/L (3.5-5.1); Sodium 135 mmol/L (137-145)
[2024-06-29] MEDS: POTASSIUM CHLORIDE 10 MEQ in WATER FOR INJECTION 1 100ML.BAG IVPB SCH (09:09)
[2024-06-29] MEDS: ALTEPLASE 2 MG VIAL (CATHFLO) IV STA ×2 (12:15→13:41)
--- NOTE | 2024-06-29 12:19 | P.PN ---
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 Patient is obese and he has developed chronic generalized weakness, respiratory insufficiency with recurrent pneumonias requiring previous intubation and mechanical ventilation. The patient has also been treated for episodes of pneumonias in the past including pseudomonal pneumonia earlier this year. He does have also an area of tracheal stenosis related to previous tracheal manipulation and tracheostomy tube insertion. Currently he has a permanent tracheostomy tube in place to secure his airways. 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 Following his most recent hospitalization in March 2024, the patient was discharged to [facility] and following that he was discharged home where he has been taking care of by family members. Since then, the patient has done well. The patient came into the emergency department as he has stated that he has been feeling more short of breath and his dyspnea is occurring in episodes. Nevertheless, he has remained hemodynamically stable. He remains on 35 to 40% trach collar without development of any significant respiratory secretions. Blo od work has been essentially stable. The white cell count at time of admission was at 5.4 with a hemoglobin of 8.3 and a platelet count of 181. Sodium levels at 139, bicarb is at 33, BUN 23 with a creatinine of 0.35. Troponins were negative. LFTs are essentially within normal limits. Total protein was at 7.4 with an albumin of 3.5. The viral screen was negative in the emergency department. Also, the patient was given a chest x-ray that showed smaller lung volumes and poor respiratory effort. There is some cardiomegaly. No acute airspace disease or consolidation. His EKG showed a normal sinus mechanism. Based on that, the patient was hospitalized in the pulmonary consultation was r equested. He was started on empiric antibiotic coverage with IV Rocephin. Noted the patient is bedridden. He has chronic muscle atrophy and contractures in his lower extremities. He remains on therapeutic dose of Lovenox 90 mg subcu every 12 hours. On 06/21/2024, the patient feels that something is obstructing his airways. At times he is feeling short of breath. No clear explanation. There may be some anatomic problems and obstruction in his trachea as during my early bronchoscopies, I noted that the patient has an area of tracheal stenosis at the site of previous tracheostomy tube insertion. I think it would be douglas to reevaluate this patient's airway right bronchoscopy and document patency of the airway. No significant respiratory secretions for now. No fever. No chills. Blood cultures are still negative. White cell count is 6.7, hemoglobin is 8.5, BUN is 12 with a creatinine of 0.36. He remains on a 40% trach collar. Remains on TPN for nutritional support Patient was seen today on06/22/24, patient was transferred to the ICU yesterday because he was not ventilating well with his tracheostomy and trach collar. Patient was placed on mechanical ventilation, however his tracheostomy is a cuffless trach, and he was still losing significant amount of volume while on me chanical ventilation. Today I had to change his tracheostomy to a different tracheostomy same size and length, however it has a cough on it and we could inflate the cough to prevent any further volume loss on mechanical ventilation. And I was able to do so at bedside. Chest x-ray clearly showed evidence of extensive left lower lobe airspace disease and the patient underwent bronchoscopy and BAL of the left lower lobe. In the meantime I went ahead after placing any tracheostomy and placed the patient and mechanical ventilation and on propofol. Patient is now on tidal volume of 500 rate of 20 FiO2 100% and PEEP of 5, ABG is pending. Earlier today, patient was requiring a bit of norepinephrine at 0.06 mcg/kg/min he is also on TPN at 75 cc/h. WBC count 6.2 hemoglobin 9.1. ABG earlier today showed a pO2 of 65 pCO2 93 pH of 7.16 and this was on trach collar. On mechanical ventilation with volume leak and loss patient had a pO2 of 91 pCO2 62 pH of 7.31 but as the day went by he was having more volume loss requiring a tracheostomy tube change. Basic metabolic profile is normal, renal profile is normal. Chest x-ray as noted earlier extensive infiltrate involving the left lower lobe noted. Patient was seen and evaluated today on 06/23/2024, patient remains in the ICU, intubated mechanically ventilated, patient did quite well since we had the tracheostomy changed to a cuffed tracheostomy in part same size. He is now on assist-control rate of 20 tidal volume 500 FiO2 35% and PEEP of 5 ABG showed a pO2 of 91 pCO2 62 pH of 7.31. Patient remains on TPN at 50 mL/h propofol at 20 mcg/kg/min norepinephrine is still needed at 0.12 mcg/kg/min patient remains on cefepime he is also on Lovenox 90 mg subcu every 12 hours. Labs today showed WBC of 6.49 hemoglobin of 7 potassium is a bit low at 3.2 otherwise electrolytes are normal renal profile is normal procalcitonin level is 0.59, C. difficile screen is negative chest x-ray showed significant improvement in his left lower lobe infiltrate Patient was seen today on 06/24/2024, remains in the ICU, intubated and mechanically ventilated. Patient is on assist-control rate of 20 tidal volume 500 FiO2 35% PEEP of 5. ABG was not done today. Patient remains on propofol at 30 mcg/kg/min TPN at 50 cc/h norepinephrine at 0.08 mcg/kg/min remains on cefepime. Sputum cultures showing gram-negative bacilli, BAL showed no growth, chest x-ray showed improvement in left lower lobe pneumonia. WBC count is 5.84 hemoglobin 7.7 electrolytes showed low potassium of 3.2 BUN is normal creatinine is normal, procalcitonin level on this admission was 0.59, C. difficile is negative. Seen today on 06/25/2024, patient remains in the ICU, intubated and mechanically ventilated, patient has a tracheostomy in place, he is on assist-control rate of 20 tidal volume 500 FiO2 35% and PEEP of 5 no ABG was done today. Chest x-ray continues to show improvement in his left lower lobe infiltrate/pneumonia WBC count is 5.4 hemoglobin 8.2 platelets are 155 electrolytes are normal renal profile is normal patient remains on nutritional support/TPN, he is on norepinephrine 0.06 mcg/kg/min propofol at 10 mcg/kg/min TPN at 50 cc/h. Remains on cefepime for his gram-negative pneumonia, patient failed pressure support and CPAP yesterday, he lasted less than half an hour. Will try again today with a pressure support of 12 or 14 and CPAP, and if he does well with pressure support and CPAP, may eventually changed the patient to a trach collar as he was prior to all of this. Patient was seen today on 06/26/2024, remains in the ICU, intubated and mechanically ventilated, patient has tracheostomy in place, he is on assist- control rate of 20 tidal volume 500 FiO2 35% PEEP of 5 yesterday he tolerated pressure support of 12 and CPAP until early evening, and at night patient was placed back on assist-control mode of mechanical ventilation he is now on assist-control mode of mechanical ventilation, and I plan to put him back on pressure support and CPAP and if tolerated may switch him to trach collar. Remains on TPN at 50 cc/h. Chest x-ray showing mostly basilar atelectasis, no evidence of pulmonary edema. Patient does have atelectatic changes and low lung volumes. WBC count is 4.7 hemoglobin 7.6 electrolytes are normal renal profile is normal. Seen today on 06/27/2024, remains in the ICU, patient tolerated trach collar since yesterday, and has not been back on the ventilator for the last almost 24 hours. Doing well, he is on 35 % FiO2 trach collar, WBC count today is 5.27 hemoglobin 7.3 electrolytes are normal renal profile is normal Seen today on 06/28/2024, patient remains in the ICU, on trach collar, and 35% FiO2, the cuff on the tracheostomy has been deflated, patient is tolerating clear liquid diet, and I am planning to advance the diet as tolerated patient remains on TPN in the meantime at 50 cc/h, overall the patient is steadily improving. And has been off mechanical ventilation now for the last 2 days. Chest x-ray showed improvement in his left lower lobe pneumonia patient did have to go bronchoscopy and BAL of the left lower lobe at 1 point few days ago. His WBC count is 5.5 hemoglobin 7.4 electrolytes are normal renal profile is normal. 06/29/2024: Patient seen and examined at the bedside. Patient remains on trach collar with the settings of FiO2 28% on 5 L. He has been off mechanical ventilation since 06/26/2024. He is tolerating clear liquid diet. Continues to be on TPN at 50 cc/h. Chest x-ray from yesterday showed improvement in left lower lobe pneumonia. Patient had a bronchial wash on 06/22/2024 was positive for Pseudomonas aeruginosa. Patient is currently on IV Avycaz. Urine output is good. Ileostomy is functioning well. Labs show WBC 5.0, hemoglobin 7.6, sodium 135, potassium 3.9, chloride 98, bicarb 34, BUN 9, creatinine 0.37, glucose 105, magnesium 1.8. Patient may be able to downgraded to 3 S today pending bed availability. Objective - Vital Signs Vital signs: Vital Signs Temp 98.4 F 06/29/24 08:00 Pulse 85 06/29/24 10:00 Resp 20 06/29/24 10:00 BP 129/77 06/29/24 10:00 Pulse Ox 93 L 06/29/24 10:00 FiO2 28 06/29/24 08:25 Intake & Output 06/28/24 06/29/24 06/29/24 18:59 06:59 18:59 Intake Total 880 720 110 Output Total 675 2435 50 Balance 205 -1715 60 Intake: IV 880 270 110 Ceftazidime/Avibactam 2.5 200 100 100 gm In Sodium Chloride 0. 9% 100 ml @ 50 mls/hr IVPB Q8H [facility] Rx#: [id number] KVO 80 120 10 Mvi, Adult No.4 with Vit 600 50 K 10 ml Trace (Conc-1Ml/ Dose) 1 ml Potassium Chloride 40 meq In Amino Acid 5%-D20w+Lytes*E* 1, 000 ml @ 50 mls/hr IV . [id number] [facility] Rx#:[id number] Oral 450 Output: Urine 675 635 50 Stool 1800 Other: Voiding Method Indwelling Catheter Indwelling Catheter - Exam GENERAL: A 48-year-old male patient, resting in bed, on 28% FiO2 trach collar Head exam was generally normal. There was no scleral icterus or corneal arcus. Mucous membranes were moist. HEENT: No scleral icterus. No conjunctival pallor. Normocephalic, atraumatic. Tracheostomy tube seems to be intact CARDIOVASCULAR: S1 and S2 present. No murmurs, rubs, or gallops. PULMONARY: Diminished breath sounds were bilaterally. No crackles rhonchi or wheezes ABDOMEN: Soft, nontender, nondistended, normoactive bowel sounds. No palpable organomegaly. Functioning ileostomy. 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 EXTREMITIES: No cyanosis, clubbing, or pedal edema. Right-sided BKA noted. NEUROLOGICAL: Profound weakness in all 4 extremities, weak cough, extensive muscle atrophy in all 4 extremities. Awake follows instructions asking for ice chips SKIN: No rashes. No open wounds. - Labs CBC & Chem 7: 06/29/24 05:33 06/29/24 05:33 Labs: Abnormal Lab Results - Last 24 Hours (Table) 06/29/24 06/29/24 Range/Units 05:33 05:33 RBC 3.06 L (4.40-5.60) 10*6/uL Hgb 7.6 L (13.0-17.0) g/dL Hct 27.1 L (39.6-50.0) % MCH 24.8 L (27.0-32.0) pg MCHC 28.0 L (32.0-37.0) g/dL Sodium 135 L (137-145) mmol/L Carbon Dioxide 34 H (22-30) mmol/L Creatinine 0.37 L (0.66-1.25) mg/dL Glucose 105 H (74-99) mg/dL Microbiology - Last 24 Hours (Table) 06/22/24 15:00 Gram Stain - Final Bronchoalviolar Lavage - Right Bronchial Washings Culture - Final Pseudomonas aeruginosa Corynebacterium striatum group Assessment and Plan Assessment: Impression: Acute on chronic hypoxic and hypercapnic respiratory failure, multifactorial Acute left lower lobe pneumonia 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 Previous history of recurrent ventilator dependent respiratory failure, secondary to pneumonia and mucous plugging. The patient has undergone previous bronchoscopies and cultures from bronchoscopy on 12/31/2023 was positive for MRSA and subsequent bronchoscopy on 01/03/2024 was positive for Klebsiella pneumoniae and Bella glabrata. Most recent sputum analysis from 02/26/2024 and 03/17/2024 was positive for Pseudomonas aeruginosa and the patient was treated successfully. Status post bronchoscopy and BAL of left lower lobe on 06/22/2024, with improvement noted in his left lower lobe pneumonia. Cultures/BAL from the bronchoscopy as well as sputum culture are positive for Pseudomonas aeruginosa. Previous episodes of sepsis secondary to pneumonia Crohn's disease, with previous complication of bowel perforation s/p colectomy and diverting ileostomy. The patient also has had previous history of abdominal wall bleeding there is currently inactive and stable. The patient has a high output ileostomy TPN for nutritional support Tracheobronchomalacia History of DVT, on therapeutic dose of Lovenox CVA/TIA, with residual left-sided weakness Right BKA History of asystole/cardiac arrest in 2021 Hypotension requiring norepinephrine, possible sepsis and septic shock. Recommendation: Continue patient on trach collar Continue deflating the cuff on the tracheostomy tube Advance diet as tolerated he is now on liquid diet Patient to be downgraded to 3 S. Continue antibiotics Continue bronchodilators Continue nutritional support/TPN GI DVT prophylaxis Continue TPN Will continue to follow, long-term prognosis remains poor and guarded patient has multiple complex issues and multiple comorbidities. Time with Patient: Less than 30
[2024-06-29] MEDS: FAT EMULSION 20% 250 ML IV SCH (14:27)
[2024-06-29] MEDS: 1: MVI, ADULT NO.4 WITH VIT K 10 ML, TRACE (CONC-1ML/DOSE) 1 ML, POTASSIUM CHLORIDE 20 M IV SCH (14:27)
--- NOTE | 2024-06-29 21:13 | P.PN ---
Subjective Progress Note Date: 06/29/24 Principal diagnosis: Reason for follow-up abnormal chest x-ray question pneumonia Patient is a 49-year-old male with a past medical history significant for chron's disease in this patient who did have multiple surgeries and complication as far as abdominal surgeries did have history of recurrent pneumonia vent dependent respiratory failure currently on a trach collar CVA TIA patient has been brought into the hospital concerning for chest pain patient also have abnormal chest x-ray concern for possible pneumonia prompting this consultation. On today's evaluation that is 06/29/2024, patient has been afebrile, patient is breathing comfortably and is currently on 28% trach collar, patient denies having any chest pain and no worsening cough, patient denies nausea vomiting or abdominal pain. Patient white count is 5.50 creatinine 0.37 Objective - Vital Signs Vital signs: Vital Signs Temp 98.4 F 06/29/24 08:00 Pulse 85 06/29/24 10:00 Resp 20 06/29/24 10:00 BP 129/77 06/29/24 10:00 Pulse Ox 93 L 06/29/24 10:00 FiO2 28 06/29/24 08:25 Intake & Output 06/28/24 06/29/24 06/29/24 18:59 06:59 18:59 Intake Total 880 720 110 Output Total 675 2435 50 Balance 205 -1715 60 Intake: IV 880 270 110 Ceftazidime/Avibactam 2.5 200 100 100 gm In Sodium Chloride 0. 9% 100 ml @ 50 mls/hr IVPB Q8H [facility] Rx#: [id number] KVO 80 120 10 Mvi, Adult No.4 with Vit 600 50 K 10 ml Trace (Conc-1Ml/ Dose) 1 ml Potassium Chloride 40 meq In Amino Acid 5%-D20w+Lytes*E* 1, 000 ml @ 50 mls/hr IV . [id number] [facility] Rx#:[id number] Oral 450 Output: Urine 675 635 50 Stool 1800 Other: Voiding Method Indwelling Catheter Indwelling Catheter - Exam GENERAL DESCRIPTION: Middle-age male lying in bed in no distress RESPIRATORY SYSTEM: Unlabored breathing , decreased breath sounds at bases HEART: S1 S2 regular rate and rhythm , ABDOMEN: Soft , no tenderness EXTREMITIES: No edema feet - Labs CBC & Chem 7: 06/29/24 05:33 06/29/24 05:33 Labs: Abnormal Lab Results - Last 24 Hours (Table) 06/29/24 06/29/24 Range/Units 05:33 05:33 RBC 3.06 L (4.40-5.60) 10*6/uL Hgb 7.6 L (13.0-17.0) g/dL Hct 27.1 L (39.6-50.0) % MCH 24.8 L (27.0-32.0) pg MCHC 28.0 L (32.0-37.0) g/dL Sodium 135 L (137-145) mmol/L Carbon Dioxide 34 H (22-30) mmol/L Creatinine 0.37 L (0.66-1.25) mg/dL Glucose 105 H (74-99) mg/dL Microbiology - Last 24 Hours (Table) 06/22/24 15:00 Gram Stain - Final Bronchoalviolar Lavage - Right Bronchial Washings Culture - Final Pseudomonas aeruginosa Corynebacterium striatum group Assessment and Plan (1) Abnormal chest x-ray Current Visit: Yes Status: Acute Code(s): R93.89 - ABNORMAL FINDINGS ON DX IMAGING OF OTH BODY STRUCTURES SNOMED Code(s): 786368771 (2) Penicillin allergy Current Visit: Yes Status: Acute Code(s): Z88.0 - ALLERGY STATUS TO PENICILLIN SNOMED Code(s): 48927920 (3) Pneumonia Current Visit: No Status: Acute Code(s): J18.9 - PNEUMONIA, UNSPECIFIED ORGANISM SNOMED Code(s): 350676684 (4) Sepsis Current Visit: No Status: Acute Code(s): A41.9 - SEPSIS, UNSPECIFIED ORGANISM SNOMED Code(s): 62568351 Plan: 1patient did have worsening of his respiratory status requiring intubation and transferred to ICU also spiked a fever And did have a heart rate in the 90s medically ready for SIRS/sepsis source likely left lower lobe pneumonia concerning for possible gram-negative in this patient who did have Zosyn allergies that would limit the number of antibiotics safe to use. 2patient is status post bronchoscopy lavage as well as sputum culture which is currently growing multidrug-resistant Pseudomonas aeruginosa resistant to meropenem sensitive to Zosyn however the patient is allergic to Zosyn 3patient is afebrile white count has been normal 4patient to to continue with Avycaz because of multiresistant Pseudomonas and plan will be for 10 to 14-day course of therapy this was discussed with MANAGER MAC for admitting team working on discharge Mother at the bedside question answered Dictation was produced using [employer] dictation software. please excuse any grammatical, word or spelling errors. Time with Patient: Less than 30
--- NOTE | 2024-06-29 22:13 | P.PN ---
Subjective Progress Note Date: 06/29/24 Patient admitted for bilateral cramping due to pneumonia gram-negative organism is not identified yet patient had Pseudomonas in the past patient underwent bronchoscopy patient remains on mechanical ventilation broad-spectrum antibiotics patient has a tracheostomy in place. Patient underwent bronchoalveolar lavage. 06/26/2024 Patient is evaluated in the ICU. Remains on the mechanical ventilator with FiO2 of 40%. Sputum culture reveals pseudomonas aeruginosa, corynebacterium striatum group. He remains on antibiotics with IV ceftazidime/Avibactam. TPN infusing. Labs today reveal white blood cell count 4.72, hgb 7.6, sodium 135, potassium 4.0, BUN 13, creatinine 0.39. Magnesium 1.9. Triglycerides of 183.00. 06/27/2024 Patient is evaluated in the intensive care unit. He is currently on the trach collar. Awake alert and oriented. Chest xray today shows left lower lobe atelectasis or pneumonia. Per mother at the bedside he was only [facility] day prior to returning to the hospital. He will likely need to return to [facility] on DC. Remains on TPN. White blood cell count 5.07, hgb 7.3, sodium 134, BUN 11, creatinine 0.34. 06/28/2024 Patient is eval today in intensive care unit. He is complaining of pain in the right ear manual examination does reveal some erythema of the canal and eardrum. We will add eardrops and monitor for improvement in symptoms. Patient is awake alert oriented he has tolerated trach collar. Chest x-ray today reveals a developing left lower lobe infiltrate with a small effusion which may be present. He continues on IV meropenem for positive sputum and bronchial washings of Pseudomonas aeruginosa and corynebacterium striatum group. Labs today reveal a white blood cell count of 5.55, hemoglobin 7.4, sodium 135, BUN of 11 creatinine 0.40. 06/29/2024 Patient is evaluated in the intensive care unit he is currently downgraded and pending a bed on the medical floor. Patient is ready for discharge and did discuss with the patient that he needs to follow-up with his family and I will also talk with his family regarding discharge planning if he is able to discharge home versus subacute rehab versus LTAC. Patient is adamant that that [facility] not [facility]. Due to his complex medical needs including PEG tube, TPN, his tracheostomy, ileostomy, and IV antibiotics he may not be a candidate for subacute rehabilitation but referrals were placed by social work. He does state that his right ear feels better after being initiated on antibiotic eardrops and they will be continued at this time. His labs today reveal a white blood cell count of 5.50, hemoglobin 7.6, sodium level of 135, BUN of 9 creatinine 0.37 and magnesium level of 1.8. Review of Systems Constitutional: Denied any fatigue denied any fever. Cardio vascular: denied any chest pain, palpitations Gastrointestinal: denied any nausea, vomiting, diarrhea Pulmonary: Denied any shortness of breath cough Neurologic denied any new focal deficits All inpatient medications were reviewed and appropriate changes in these medications as dictated in the interval history and assessment and plan. PHYSICAL EXAMINATION: GENERAL: Patient is awake alert oriented x3. HEENT: Pupils are round and equally reacting to light. EOMI. No scleral icterus. No conjunctival pallor. Normocephalic, atraumatic. No pharyngeal erythema. No thyromegaly. Tracheostomy in place. CARDIOVASCULAR: S1 and S2 present. No murmurs, rubs, or gallops. PULMONARY: Chest is clear to auscultation, no wheezing or crackles. ABDOMEN: Soft, nontender, nondistended, normoactive bowel sounds. No palpable organomegaly. MUSCULOSKELETAL: No joint swelling or deformity. EXTREMITIES: No cyanosis, clubbing, or pedal edema. NEUROLOGICAL: Sedated at this time SKIN: No rashes. Assessment and plan Bilateral gram-negative pneumonia possibility of aspiration infectious disease and multiple other consultants are following the patient - Acute respiratory failure requiring mechanical ventilation status post bronchoalveolar lavage; cultures growing pseudomonas and corynebacterium. Patient has been extubated and tolerating the trach collar. 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 Patient will be moved out of the intensive care unit. Referrals have been sent out for subacute rehab by case management and patient does not want [facility] he may need to go to LTAC though. Need to follow-up with family tomorrow regarding discharge planning if family can accommodate the patient at home. He will continue on IV antibiotic therapy on discharge for a 10-day course per infectious disease. The impression and plan of care has been dictated by Coral Medina, Nurse Practitioner as directed. Dr. Mo MD I have performed a history and physical examination and medical decision making of this patient, discussed the same with the dictator, and agree with the dictators assessment and plan as written, documented as a scribe. Based on total visit time, I have performed more than 50% of this visit. Objective - Vital Signs Vital signs: Vital Signs Temp 98.5 F 06/29/24 04:00 Pulse 86 06/29/24 08:45 Resp 16 06/29/24 07:00 BP 103/53 06/29/24 07:00 Pulse Ox 100 06/29/24 08:25 FiO2 28 06/29/24 08:25 Intake & Output 06/28/24 06/29/24 06/29/24 18:59 06:59 18:59 Intake Total 880 720 110 Output Total 675 2435 50 Balance 205 -1715 60 Intake: IV 880 270 110 Ceftazidime/Avibactam 2.5 200 100 100 gm In Sodium Chloride 0. 9% 100 ml @ 50 mls/hr IVPB Q8H [facility] Rx#: [id number] KVO 80 120 10 Mvi, Adult No.4 with Vit 600 50 K 10 ml Trace (Conc-1Ml/ Dose) 1 ml Potassium Chloride 40 meq In Amino Acid 5%-D20w+Lytes*E* 1, 000 ml @ 50 mls/hr IV . [id number] [facility] Rx#:[id number] Oral 450 Output: Urine 675 635 50 Stool 1800 Other: Voiding Method Indwelling Catheter Indwelling Catheter - Labs CBC & Chem 7: 06/29/24 05:33 06/29/24 05:33 Labs: Abnormal Lab Results - Last 24 Hours (Table) 06/29/24 06/29/24 Range/Units 05:33 05:33 RBC 3.06 L (4.40-5.60) 10*6/uL Hgb 7.6 L (13.0-17.0) g/dL Hct 27.1 L (39.6-50.0) % MCH 24.8 L (27.0-32.0) pg MCHC 28.0 L (32.0-37.0) g/dL Sodium 135 L (137-145) mmol/L Carbon Dioxide 34 H (22-30) mmol/L Creatinine 0.37 L (0.66-1.25) mg/dL Glucose 105 H (74-99) mg/dL Microbiology - Last 24 Hours (Table) 06/22/24 15:00 Gram Stain - Final Bronchoalviolar Lavage - Right Bronchial Washings Culture - Final Pseudomonas aeruginosa Corynebacterium striatum group Assessment and Plan Time with Patient: Less than 30
[2024-06-30 07:31] LABS: ALT 19 U/L (4-49); AST 20 U/L (17-59); African American GFR (CKD) >90 (>60 ml/min/1.73 sqM); Alkaline Phosphatase 76 U/L (38-126); Anion Gap 1 mmol/L; Blood Urea Nitrogen 13 mg/dL (9-20); Calcium 8.9 mg/dL (8.4-10.2); Carbon Dioxide 36 mmol/L (22-30); Chloride 96 mmol/L (98-107); Glucose 138 mg/dL (74-99); Magnesium 1.7 mg/dL (1.6-2.3); Non-African American GFR(CKD) >90 (>60 ml/min/1.73 sqM); Phosphorus 3.2 mg/dL (2.5-4.5); Potassium 4.2 mmol/L (3.5-5.1); Sodium 133 mmol/L (137-145); Total Bilirubin 0.6 mg/dL (0.2-1.3); Total Protein 7.1 g/dL (6.3-8.2)
[2024-06-30] MEDS: MAGNESIUM SULFATE-D5W PMX 1 GM in DEXTROSE/WATER 1 100ML.BAG IVPB ONE (12:21)
--- NOTE | 2024-06-30 12:28 | P.PN ---
Subjective Progress Note Date: 06/30/24 Principal diagnosis: Chest pain. Seen today on 06/25/2024, patient remains in the ICU, intubated and mechanically ventilated, patient has a tracheostomy in place, he is on assist-control rate of 20 tidal volume 500 FiO2 35% and PEEP of 5 no ABG was done today. Chest x-ray continues to show improvement in his left lower lobe infiltrate/pneumonia WBC count is 5.4 hemoglobin 8.2 platelets are 155 electrolytes are normal renal profile is normal patient remains on nutritional support/TPN, he is on norepinephrine 0.06 mcg/kg/min propofol at 10 mcg/kg/min TPN at 50 cc/h. Remains on cefepime for his gram-negative pneumonia, patient failed pressure support and CPAP yesterday, he lasted less than half an hour. Will try again today with a pressure support of 12 or 14 and CPAP, and if he does well with pressure support and CPAP, may eventually changed the patient to a trach collar as he was prior to all of this. Patient was seen today on 06/26/2024, remains in the ICU, intubated and mechanically ventilated, patient has tracheostomy in place, he is on assist- control rate of 20 tidal volume 500 FiO2 35% PEEP of 5 yesterday he tolerated pressure support of 12 and CPAP until early evening, and at night patient was placed back on assist-control mode of mechanical ventilation he is now on assist-control mode of mechanical ventilation, and I plan to put him back on pressure support and CPAP and if tolerated may switch him to trach collar. Remains on TPN at 50 cc/h. Chest x-ray showing mostly basilar atelectasis, no evidence of pulmonary edema. Patient does have atelectatic changes and low lung volumes. WBC count is 4.7 hemoglobin 7.6 electrolytes are normal renal profile is normal. Seen today on 06/27/2024, remains in the ICU, patient tolerated trach collar sinc e yesterday, and has not been back on the ventilator for the last almost 24 hours. Doing well, he is on 35 % FiO2 trach collar, WBC count today is 5.27 hemoglobin 7.3 electrolytes are normal renal profile is normal Seen today on 06/28/2024, patient remains in the ICU, on trach collar, and 35% FiO2, the cuff on the tracheostomy has been deflated, patient is tolerating clear liquid diet, and I am planning to advance the diet as tolerated patient remains on TPN in the meantime at 50 cc/h, overall the patient is steadily improving. And has been off mechanical ventilation now for the last 2 days. Chest x-ray showed improvement in his left lower lobe pneumonia patient did have to go bronchoscopy and BAL of the left lower lobe at 1 point few days ago. His WBC count is 5.5 hemoglobin 7.4 electrolytes are normal renal profile is normal. 06/29/2024: Patient seen and examined at the bedside. Patient remains on trach collar with the settings of FiO2 28% on 5 L. He has been off mechanical ventilation since 06/26/2024. He is tolerating clear liquid diet. Continues to be on TPN at 50 cc/h. Chest x-ray from yesterday showed improvement in left lower lobe pneumonia. Patient had a bronchial wash on 06/22/2024 was positive for Pseudomonas aeruginosa. Patient is currently on IV Avycaz. Urine output is good. Ileostomy is functioning well. Labs show WBC 5.0, hemoglobin 7.6, sodium 135, potassium 3.9, chloride 98, bicarb 34, BUN 9, creatinine 0.37, glucose 105, magnesium 1.8. Patient may be able to downgraded to 3 S today pending bed availability. Progress note dated June 30, 2024. The patient is seen today in room 368. Yesterday, the patient was in the intensive care unit. The patient is on a trach collar 28%. He is getting TPN at 83 cc an hour. The patient appears relatively stable, without any distress. Current labs include a sodium 133, potassium 4.2, chloride 96, CO2 36, BUN 13, creatinine 0.37. Glucose is 138. Calcium 8.9. Albumin is 3. BAL sampling was positive for Pseudomonas aeruginosa. Sputum, was also positive for Pseudomonas, on June 21. No chest x-ray today. Objective - Vital Signs Vital signs: Vital Signs Temp 98.7 F 06/30/24 12:08 Pulse 97 06/30/24 12:08 Resp 19 06/30/24 12:08 BP 115/69 06/30/24 12:08 Pulse Ox 96 06/30/24 08:11 FiO2 28 06/30/24 08:11 Intake & Output 06/29/24 06/30/24 06/30/24 18:59 06:59 18:59 Intake Total 540 280 Output Total 2024 1600 Balance -1485 -1320 Weight 91.8 kg 89.5 kg Intake: IV 300 Ceftazidime/Avibactam 2.5 200 gm In Sodium Chloride 0. 9% 100 ml @ 50 mls/hr IVPB Q8H [facility] Rx#: [id number] KVO 100 Oral 240 280 Output: Urine 725 800 Stool 1300 800 Other: Voiding Method Indwelling Catheter Indwelling Catheter Indwelling Catheter - Exam No acute distress, oriented 3. Somnolent. HEENT examination is grossly unremarkable. Mucous membranes are moist. No oral lesions. Neck supple. Full range of motion. No adenopathy thyromegaly or neck vein distention. Midline tracheostomy is noted. Cardiovascular examination reveals regular rhythm rate. S1-S2 normal. No S3 or S4. No discernible murmur noted. Lungs reveal mostly clear breath sounds. No wheezes. No crackles. Breath sounds are equal bilaterally. Abdomen soft, with bowel sounds. No masses or tenderness. The patient has an enterocutaneous fistula, as well as a functioning ileostomy. Extremities are intact. No cyanosis clubbing or edema. Skin is without rash or lesion. Neurologic examination is brief but nonfocal. - Labs CBC & Chem 7: 06/29/24 05:33 06/30/24 06:32 Labs: Abnormal Lab Results - Last 24 Hours (Table) 06/30/24 Range/Units 06:32 Sodium 133 L (137-145) mmol/L Chloride 96 L (98-107) mmol/L Carbon Dioxide 36 H (22-30) mmol/L Creatinine 0.37 L (0.66-1.25) mg/dL Glucose 138 H (74-99) mg/dL Albumin 3.0 L (3.5-5.0) g/dL Assessment and Plan Assessment: Acute on chronic hypoxemic and hypercapnic respiratory failure, multifactorial. Acute left lower lobe pneumonia. Tracheal stenosis. History of recurrent ventilator dependent respiratory failure, secondary to pneumonia and mucous plugging. Recent bronchoscopy, on June 22, 2024, revealed evidence of Pseudomonas aeruginosa. Previous bronchoscopy is also showing evidence of Klebsiella pneumoniae, Bella, and Pseudomonas. History of sepsis, secondary to pneumonia. Crohn's disease, with previous bowel perforation, status post colectomy and diverting ileostomy. Tracheobronchomalacia. History of DVT. History of CVA/TIA. Right below the knee amputation. History of asystole/cardiac arrest, 2021. Hypotension, resolved. Plan: Plan dated June 30, 2024. The patient continues on a trach collar 28%. The patient is receiving TPN at 83 cc an hour. All labs, x-rays, and medications are reviewed. The patient continues on DVT and GI prophylaxis. We will continue to follow. Prognosis is guarded. The patient was transferred out of the intensive care unit yesterday. We will continue to follow make recommendations along the way. Dictation was produced using [employer] software. Please excuse any grammatical, word or spelling errors. Time with Patient: Less than 30
[2024-06-30] MEDS: 1: MVI, ADULT NO.4 WITH VIT K 10 ML, TRACE (CONC-1ML/DOSE) 1 ML, SODIUM CHLORIDE 4MEQ/ML IV SCH (13:31)
--- NOTE | 2024-06-30 14:29 | P.PN ---
Subjective Progress Note Date: 06/30/24 Principal diagnosis: Reason for follow-up abnormal chest x-ray question pneumonia Patient is a 49-year-old male with a past medical history significant for chron's disease in this patient who did have multiple surgeries and complication as far as abdominal surgeries did have history of recurrent pneumonia vent dependent respiratory failure currently on a trach collar CVA TIA patient has been brought into the hospital concerning for chest pain patient also have abnormal chest x-ray concern for possible pneumonia prompting this consultation. On today's evaluation that is 06/30/2024, Patient is afebrile this morning patient denies having any chest pain shortness of breath or cough, the patient is currently on trach collar patient denies any abdominal pain no nausea no. Patient did have a creatinine 0.37 white count was 5.50 yesterday Objective - Vital Signs Vital signs: Vital Signs Temp 98.7 F 06/30/24 12:08 Pulse 97 06/30/24 12:08 Resp 19 06/30/24 12:08 BP 115/69 06/30/24 12:08 Pulse Ox 96 06/30/24 08:11 FiO2 28 06/30/24 08:11 Intake & Output 06/29/24 06/30/24 06/30/24 18:59 06:59 18:59 Intake Total 540 280 Output Total 2024 1600 1200 Balance -1485 -1320 -1200 Weight 91.8 kg 89.5 kg Intake: IV 300 Ceftazidime/Avibactam 2.5 200 gm In Sodium Chloride 0. 9% 100 ml @ 50 mls/hr IVPB Q8H [facility] Rx#: [id number] KVO 100 Oral 240 280 Output: Urine 725 800 700 Stool 1300 800 500 Other: Voiding Method Indwelling Catheter Indwelling Catheter Indwelling Catheter - Exam GENERAL DESCRIPTION: Middle-age male lying in bed in no distress RESPIRATORY SYSTEM: Unlabored breathing , decreased breath sounds at bases HEART: S1 S2 regular rate and rhythm , ABDOMEN: Soft , no tenderness EXTREMITIES: No edema feet - Labs CBC & Chem 7: 06/29/24 05:33 06/30/24 06:32 Labs: Abnormal Lab Results - Last 24 Hours (Table) 06/30/24 Range/Units 06:32 Sodium 133 L (137-145) mmol/L Chloride 96 L (98-107) mmol/L Carbon Dioxide 36 H (22-30) mmol/L Creatinine 0.37 L (0.66-1.25) mg/dL Glucose 138 H (74-99) mg/dL Albumin 3.0 L (3.5-5.0) g/dL Assessment and Plan (1) Abnormal chest x-ray Current Visit: Yes Status: Acute Code(s): R93.89 - ABNORMAL FINDINGS ON DX IMAGING OF OTH BODY STRUCTURES SNOMED Code(s): 538654227 (2) Penicillin allergy Current Visit: Yes Status: Acute Code(s): Z88.0 - ALLERGY STATUS TO PENICILLIN SNOMED Code(s): 92218833 (3) Pneumonia Current Visit: No Status: Acute Code(s): J18.9 - PNEUMONIA, UNSPECIFIED ORGANISM SNOMED Code(s): 803951369 (4) Sepsis Current Visit: No Status: Acute Code(s): A41.9 - SEPSIS, UNSPECIFIED ORGANIS M SNOMED Code(s): 51184499 Plan: 1patient did have worsening of his respiratory status requiring intubation and transferred to ICU also spiked a fever And did have a heart rate in the 90s medically ready for SIRS/sepsis source likely left lower lobe pneumonia concerning for possible gram-negative in this patient who did have Zosyn allergies that would limit the number of antibiotics safe to use. 2patient is status post bronchoscopy lavage as well as sputum culture which is currently growing multidrug-resistant Pseudomonas aeruginosa resistant to meropenem sensitive to Zosyn however the patient is allergic to Zosyn 3patient is afebrile white count has been normal 4patient is slowly clinical improvement we will continue with Avycaz because of multiresistant Pseudomonas a to finish total of 14-day course of therapy Mother at the bedside question answered Dictation was produced using [employer] dictation software. please excuse any grammatical, word or spelling errors. Time with Patient: Less than 30
--- NOTE | 2024-06-30 14:31 | P.PN ---
Subjective Progress Note Date: 06/30/24 Patient admitted for bilateral cramping due to pneumonia gram-negative organism is not identified yet patient had Pseudomonas in the past patient underwent bronchoscopy patient remains on mechanical ventilation broad-spectrum antibiotics patient has a tracheostomy in place. Patient underwent bronchoalveolar lavage. 06/26/2024 Patient is evaluated in the ICU. Remains on the mechanical ventilator with FiO2 of 40%. Sputum culture reveals pseudomonas aeruginosa, corynebacterium striatum group. He remains on antibiotics with IV ceftazidime/Avibactam. TPN infusing. Labs today reveal white blood cell count 4.72, hgb 7.6, sodium 135, potassium 4.0, BUN 13, creatinine 0.39. Magnesium 1.9. Triglycerides of 183.00. 06/27/2024 Patient is evaluated in the intensive care unit. He is currently on the trach collar. Awake alert and oriented. Chest xray today shows left lower lobe atelectasis or pneumonia. Per mother at the bedside he was only home from the [facility] for one day prior to returning to the hospital. He will likely need to return to [facility] on DC. Remains on TPN. White blood cell count 5.07, hgb 7.3, sodium 134, BUN 11, creatinine 0.34. 06/28/2024 Patient is eval today in intensive care unit. He is complaining of pain in the right ear manual examination does reveal some erythema of the canal and eardrum. We will add eardrops and monitor for improvement in symptoms. Patient is awake alert oriented he has tolerated trach collar. Chest x-ray today reveals a developing left lower lobe infiltrate with a small effusion which may be present. He continues on IV meropenem for positive sputum and bronchial washings of Pseudomonas aeruginosa and corynebacterium striatum group. Labs today reveal a white blood cell count of 5.55, hemoglobin 7.4, sodium 135, BUN of 11 creatinine 0.40. 06/29/2024 Patient is evaluated in the intensive care unit he is currently downgraded and pending a bed on the medical floor. Patient is ready for discharge and did discuss with the patient that he needs to follow-up with his family and I will also talk with his family regarding discharge planning if he is able to discharge home versus subacute rehab versus LTAC. Patient is adamant that that he will not [facility]. Due to his complex medical needs including PEG tube, TPN, his tracheostomy, ileostomy, and IV antibiotics he may not be a candidate for subacute rehabilitation but referrals were placed by social work. He does state that his right ear feels better after being initiated on antibiotic eardrops and they will be continued at this time. His labs today reveal a white blood cell count of 5.50, hemoglobin 7.6, sodium level of 135, BUN of 9 creatinine 0.37 and magnesium level of 1.8. 06/30/2024 Patient is evaluated in follow-up in the medical floor. He has no acute complaints at this time. He does report again mild improvement in his right ear pain and he continues with the eardrops. Had a long discussion with patient's son over and over the phone regarding discharge planning. Alan is apprehensive about allowing child to return home due to his complex medical needs and somebody having to stay up with him overnight for suctioning and trach care. Open would like him to return to the [facility] for at least another month or so until his other brother comes home from college. Will need to follow-up with patient tomorrow regarding this and awaiting other referrals for any other excepting facility as patient really does not want to return to the [facility]. Review of Systems Constitutional: Denied any fatigue denied any fever. Cardio vascular: denied any chest pain, palpitations Gastrointestinal: denied any nausea, vomiting, diarrhea Pulmonary: Denied any shortness of breath cough Neurologic denied any new focal deficits All inpatient medications were reviewed and appropriate changes in these medications as dictated in the interval history and assessment and plan. PHYSICAL EXAMINATION: GENERAL: Patient is awake alert oriented x3. HEENT: Pupils are round and equally reacting to light. EOMI. No scleral icterus. No conjunctival pallor. Normocephalic, atraumatic. No pharyngeal erythema. No thyromegaly. Tracheostomy in place. CARDIOVASCULAR: S1 and S2 present. No murmurs, rubs, or gallops. PULMONARY: Chest is clear to auscultation, no wheezing or crackles. ABDOMEN: Soft, nontender, nondistended, normoactive bowel sounds. No palpable organomegaly. MUSCULOSKELETAL: No joint swelling or deformity. EXTREMITIES: No cyanosis, clubbing, or pedal edema. NEUROLOGICAL: Sedated at this time SKIN: No rashes. Assessment and plan Bilateral gram-negative pneumonia possibility of aspiration infectious disease and multiple other consultants are following the patient - Acute respiratory failure requiring mechanical ventilation status post bronchoalveolar lavage; cultures growing pseudomonas and corynebacterium. Patient has been extubated and tolerating the trach collar. 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 Patient will be moved out of the intensive care unit. Referrals have been sent out for subacute rehab by case management and patient does not want to [facility] he may need to go to LTAC though. Need to follow-up with family tomorrow regarding discharge planning if family can accommodate the patient at home. He will continue on IV antibiotic therapy on discharge for a 10-day course per infectious disease. The impression and plan of care has been dictated by Coral Medina Nurse Practitioner as directed. Dr. Mo MD I have performed a history and physical examination and medical decision making of this patient, discussed the same with the dictator, and agree with the dictators assessment and plan as written, documented as a scribe. Based on total visit time, I have performed more than 50% of this visit. Objective - Vital Signs Vital signs: Vital Signs Temp 98.7 F 06/30/24 12:08 Pulse 97 06/30/24 12:08 Resp 19 06/30/24 12:08 BP 115/69 06/30/24 12:08 Pulse Ox 96 06/30/24 08:11 FiO2 28 06/30/24 08:11 Intake & Output 06/29/24 06/30/24 06/30/24 18:59 06:59 18:59 Intake Total 540 280 Output Total 2024 1600 1200 Balance -1485 -1320 -1200 Weight 91.8 kg 89.5 kg Intake: IV 300 Ceftazidime/Avibactam 2.5 200 gm In Sodium Chloride 0. 9% 100 ml @ 50 mls/hr IVPB Q8H [facility] Rx#: [id number] KVO 100 Oral 240 280 Output: Urine 725 800 700 Stool 1300 800 500 Other: Voiding Method Indwelling Catheter Indwelling Catheter Indwelling Catheter - Labs CBC & Chem 7: 06/29/24 05:33 06/30/24 06:32 Labs: Abnormal Lab Results - Last 24 Hours (Table) 06/30/24 Range/Units 06:32 Sodium 133 L (137-145) mmol/L Chloride 96 L (98-107) mmol/L Carbon Dioxide 36 H (22-30) mmol/L Creatinine 0.37 L (0.66-1.25) mg/dL Glucose 138 H (74-99) mg/dL Albumin 3.0 L (3.5-5.0) g/dL Assessment and Plan Time with Patient: Less than 30
[2024-07-01 00:15] LABS: Glucose,Whole Blood 153 mg/dL (70-110)
[2024-07-01 04:59] LABS: Glucose,Whole Blood 163 mg/dL (70-110)
--- NOTE | 2024-07-01 05:06 | XR ---
EXAM: XR Chest, 1 View CLINICAL HISTORY: ITS.REASON XR Reason: Shortness of breath TECHNIQUE: Frontal view of the chest. COMPARISON: X-ray dated 06/28/2024. FINDINGS: Lungs: Opacification of the left lung base. Opacification of the right lung base. Pleural space: Left-sided pleural effusion. No pneumothorax. Heart: The cardiac silhouette is obscured. Mediastinum: Unremarkable. Normal mediastinal contour. Bones/joints: Unremarkable. No acute fracture. Tubes, lines and devices: Tracheostomy tube is in place with the tip terminating 3.4 cm from the avery. Stable placement of left sided central venous catheter. IMPRESSION: Stable chest.
[2024-07-01 05:44] LABS: ABG Base Excess 6.4 mmol/L; ABG HCO3 35 mmol/L (21-25); ABG Oxygen Saturation 95.1 % (94-97); ABG PH 7.27 (7.35-7.45); ABG PO2 77 mmHg (83-108); ABG TCO2 37 mmol/L (19-24); Allen Test Performed? Yes
[2024-07-01 05:49] LABS: ABG PCO2 76 mmHg (35-45)
[2024-07-01 06:14] LABS: Glucose,Whole Blood 165 mg/dL (70-110)
[2024-07-01 07:21] LABS: African American GFR (CKD) >90 (>60 ml/min/1.73 sqM); Anion Gap 7 mmol/L; Blood Urea Nitrogen 14 mg/dL (9-20); Calcium 9.5 mg/dL (8.4-10.2); Carbon Dioxide 30 mmol/L (22-30); Chloride 99 mmol/L (98-107); Glucose 154 mg/dL (74-99); Non-African American GFR(CKD) >90 (>60 ml/min/1.73 sqM); Sodium 136 mmol/L (137-145)
[2024-07-01 07:22] LABS: Phosphorus 2.6 mg/dL (2.5-4.5); Potassium 4.1 mmol/L (3.5-5.1)
[2024-07-01 11:30] LABS: Glucose,Whole Blood 159 mg/dL (70-110)
--- NOTE | 2024-07-01 13:48 | P.PN ---
Subjective Progress Note Date: 07/01/24 Principal diagnosis: Chest pain. Seen today on 06/25/2024, patient remains in the ICU, intubated and mechanically ventilated, patient has a tracheostomy in place, he is on assist-control rate of 20 tidal volume 500 FiO2 35% and PEEP of 5 no ABG was done today. Chest x-ray continues to show improvement in his left lower lobe infiltrate/pneumonia WBC count is 5.4 hemoglobin 8.2 platelets are 155 electrolytes are normal renal profile is normal patient remains on nutritional support/TPN, he is on norepinephrine 0.06 mcg/kg/min propofol at 10 mcg/kg/min TPN at 50 cc/h. Remains on cefepime for his gram-negative pneumonia, patient failed pressure support and CPAP yesterday, he lasted less than half an hour. Will try again today with a pressure support of 12 or 14 and CPAP, and if he does well with pressure support and CPAP, may eventually changed the patient to a trach collar as he was prior to all of this. Patient was seen today on 06/26/2024, remains in the ICU, intubated and mechanically ventilated, patient has tracheostomy in place, he is on assist- control rate of 20 tidal volume 500 FiO2 35% PEEP of 5 yesterday he tolerated pressure support of 12 and CPAP until early evening, and at night patient was placed back on assist-control mode of mechanical ventilation he is now on assist-control mode of mechanical ventilation, and I plan to put him back on pressure support and CPAP and if tolerated may switch him to trach collar. Remains on TPN at 50 cc/h. Chest x-ray showing mostly basilar atelectasis, no evidence of pulmonary edema. Patient does have atelectatic changes and low lung volumes. WBC count is 4.7 hemoglobin 7.6 electrolytes are normal renal profile is normal. Seen today on 06/27/2024, remains in the ICU, patient tolerated trach collar sinc e yesterday, and has not been back on the ventilator for the last almost 24 hours. Doing well, he is on 35 % FiO2 trach collar, WBC count today is 5.27 hemoglobin 7.3 electrolytes are normal renal profile is normal Seen today on 06/28/2024, patient remains in the ICU, on trach collar, and 35% FiO2, the cuff on the tracheostomy has been deflated, patient is tolerating clear liquid diet, and I am planning to advance the diet as tolerated patient remains on TPN in the meantime at 50 cc/h, overall the patient is steadily improving. And has been off mechanical ventilation now for the last 2 days. Chest x-ray showed improvement in his left lower lobe pneumonia patient did have to go bronchoscopy and BAL of the left lower lobe at 1 point few days ago. His WBC count is 5.5 hemoglobin 7.4 electrolytes are normal renal profile is normal. 06/29/2024: Patient seen and examined at the bedside. Patient remains on trach collar with the settings of FiO2 28% on 5 L. He has been off mechanical ventilation since 06/26/2024. He is tolerating clear liquid diet. Continues to be on TPN at 50 cc/h. Chest x-ray from yesterday showed improvement in left lower lobe pneumonia. Patient had a bronchial wash on 06/22/2024 was positive for Pseudomonas aeruginosa. Patient is currently on IV Avycaz. Urine output is good. Ileostomy is functioning well. Labs show WBC 5.0, hemoglobin 7.6, sodium 135, potassium 3.9, chloride 98, bicarb 34, BUN 9, creatinine 0.37, glucose 105, magnesium 1.8. Patient may be able to downgraded to 3 S today pending bed availability. Progress note dated June 30, 2024. The patient is seen today in room 368. Yesterday, the patient was in the intensive care unit. The patient is on a trach collar 28%. He is getting TPN at 83 cc an hour. The patient appears relatively stable, without any distress. Current labs include a sodium 133, potassium 4.2, chloride 96, CO2 36, BUN 13, creatinine 0.37. Glucose is 138. Calcium 8.9. Albumin is 3. BAL sampling was positive for Pseudomonas aeruginosa. Sputum, was also positive for Pseudomonas, on June 21. No chest x-ray today. Progress note dated July 01, 2024. 49-year-old male seen today in room 368. Currently, the patient is on trach collar at 40%. He is getting TPN at 85 cc an hour. Apparently the patient was a bit lethargic last night, and our nurse practitioner ordered a blood gas showing a PO2 of 77, pCO2 of 76, and a pH of 7.27. I believe that was when he was on a 28% trach collar. Anyway, the patient was seen again by the nurse practitioner a bit later, and was much more awake and alert. On the initial evaluation, the patient was a bit lethargic and sleepy. Repeat blood gas was ordered, but was not able to be performed, as respiratory therapy was not able to get the blood gas. Currently, he seems to be doing relatively well. Current labs include 4.1, chlorides 99, CO2 30, BUN 14, and creatinine is 0.30. Glucose is 159. Chest x-ray reveals bibasilar opacities, and a left-sided pleural effusion. Objective - Vital Signs Vital signs: Vital Signs Temp 97.9 F 07/01/24 11:03 Pulse 53 L 07/01/24 11:40 Resp 20 07/01/24 11:03 BP 144/67 07/01/24 11:03 Pulse Ox 94 L 07/01/24 11:30 FiO2 40 07/01/24 11:30 Intake & Output 06/30/24 07/01/24 07/01/24 18:59 06:59 18:59 Output Total 2175 1550 550 Balance -2175 -1550 -550 Weight 89.5 kg Output: Urine 1175 1000 Stool 1000 550 550 Other: Voiding Method Indwelling Catheter Indwelling Catheter Indwelling Catheter - Exam No acute distress, oriented 3. Awake and alert. HEENT examination is grossly unremarkable. Mucous membranes are moist. No oral lesions. Neck supple. Full range of motion. No adenopathy thyromegaly or neck vein distention. Midline tracheostomy is noted. Cardiovascular examination reveals regular rhythm rate. S1-S2 normal. No S3 or S4. No discernible murmur noted. Lungs reveal mostly clear breath sounds. No wheezes. No crackles. Breath sounds are equal bilaterally. Abdomen soft, with bowel sounds. No masses or tenderness. The patient has an enterocutaneous fistula, as well as a functioning ileostomy. Extremities are intact. No cyanosis clubbing or edema. Skin is without rash or lesion. Neurologic examination is brief but nonfocal. - Labs CBC & Chem 7: 06/29/24 05:33 07/01/24 06:18 Labs: Abnormal Lab Results - Last 24 Hours (Table) 07/01/24 07/01/24 07/01/24 Range/Units 00:13 04:57 05:43 ABG pH 7.27 L (7.35-7.45) ABG pCO2 76 H* (35-45) mmHg ABG pO2 77 L (83-108) mmHg ABG HCO3 35 H (21-25) mmol/L ABG Total CO2 37 H (19-24) mmol/L Hemoglobin 8.5 L (13.0-17.5) gm/dL Sodium (137-145) mmol/L Creatinine (0.66-1.25) mg/dL Glucose (74-99) mg/dL POC Glucose (mg/dL) 153 H 163 H (70-110) mg/dL 07/01/24 07/01/24 07/01/24 Range/Units 06:12 06:18 11:28 ABG pH (7.35-7.45) ABG pCO2 (35-45) mmHg ABG pO2 (83-108) mmHg ABG HCO3 (21-25) mmol/L ABG Total CO2 (19-24) mmol/L Hemoglobin (13.0-17.5) gm/dL Sodium 136 L (137-145) mmol/L Creatinine 0.30 L (0.66-1.25) mg/dL Glucose 154 H (74-99) mg/dL POC Glucose (mg/dL) 165 H 159 H (70-110) mg/dL Assessment and Plan Assessment: Acute on chronic hypoxemic and hypercapnic respiratory failure, multifactorial. Acute left lower lobe pneumonia. Tracheal stenosis. History of recurrent ventilator dependent respiratory failure, secondary to pneumonia and mucous plugging. Recent bronchoscopy, on June 22, 2024, revealed evidence of Pseudomonas aeruginosa. Previous bronchoscopy is also showing evidence of Klebsiella pneumoniae, Bella, and Pseudomonas. History of sepsis, secondary to pneumonia. Crohn's disease, with previous bowel perforation, status post colectomy and diverting ileostomy. Tracheobronchomalacia. History of DVT. History of CVA/TIA. Right below the knee amputation. History of asystole/cardiac arrest, 2021. Hypotension, resolved. Plan: Plan dated June 30, 2024. The patient continues on a trach collar 28%. The patient is receiving TPN at 83 cc an hour. All labs, x-rays, and medications are reviewed. The patient continues on DVT and GI prophylaxis. We will continue to follow. Prognosis is guarded. The patient was transferred out of the intensive care unit yesterday. We will continue to follow make recommendations along the way. Dictation was produced using [email or web address] dictation software. Please excuse any grammatical, word or spelling errors. Plan dated July 01, 2024. The patient is currently on a 40% trach collar. He has been on the 28% trach collar, and I did asked the nurse to have respiratory titrate him down, as long as his saturations are adequate. The patient's labs are reviewed. Last night, my nurse practitioner was called to the bedside, because the patient was very out of it, lethargic, and a blood gas revealed worsening hypercapnic respiratory failure. This morning, he is much more awake and alert. He is on a 40% trach collar, which can be titrated down. Repeat blood gas was ordered, but I do not believe is necessary at this time. We will continue to follow make recomme ndations. Prognosis is certainly guarded. All labs, x-rays, and medications are reviewed. Dictation was produced using [employer] software. Please excuse any grammatical, word or spelling errors. Time with Patient: Less than 30
--- NOTE | 2024-07-01 14:29 | P.PN ---
Subjective Progress Note Date: 07/01/24 Patient admitted for bilateral cramping due to pneumonia gram-negative organism is not identified yet patient had Pseudomonas in the past patient underwent bronchoscopy patient remains on mechanical ventilation broad-spectrum antibiotics patient has a tracheostomy in place. Patient underwent bronchoalveolar lavage. 06/26/2024 Patient is evaluated in the ICU. Remains on the mechanical ventilator with FiO2 of 40%. Sputum culture reveals pseudomonas aeruginosa, corynebacterium striatum group. He remains on antibiotics with IV ceftazidime/Avibactam. TPN infusing. Labs today reveal white blood cell count 4.72, hgb 7.6, sodium 135, potassium 4.0, BUN 13, creatinine 0.39. Magnesium 1.9. Triglycerides of 183.00. 06/27/2024 Patient is evaluated in the intensive care unit. He is currently on the trach collar. Awake alert and oriented. Chest xray today shows left lower lobe atelectasis or pneumonia. Per mother at the bedside he was only home [facility] one day prior to returning to the hospital. He will likely need to return to [facility] on DC. Remains on TPN. White blood cell count 5.07, hgb 7.3, sodium 134, BUN 11, creatinine 0.34. 06/28/2024 Patient is eval today in intensive care unit. He is complaining of pain in the right ear manual examination does reveal some erythema of the canal and eardrum. We will add eardrops and monitor for improvement in symptoms. Patient is awake alert oriented he has tolerated trach collar. Chest x-ray today reveals a developing left lower lobe infiltrate with a small effusion which may be present. He continues on IV meropenem for positive sputum and bronchial washings of Pseudomonas aeruginosa and corynebacterium striatum group. Labs today reveal a white blood cell count of 5.55, hemoglobin 7.4, sodium 135, BUN of 11 creatinine 0.40. 06/29/2024 Patient is evaluated in the intensive care unit he is currently downgraded and pending a bed on the medical floor. Patient is ready for discharge and did discuss with the patient that he needs to follow-up with his family and I will also talk with his family regarding discharge planning if he is able to discharge home versus subacute rehab versus LTAC. Patient is adamant that that [facility] not [facility]. Due to his complex medical needs including PEG tube, TPN, his tracheostomy, ileostomy, and IV antibiotics he may not be a candidate for subacute rehabilitation but referrals were placed by social work. He does state that his right ear feels better after being initiated on antibiotic eardrops and they will be continued at this time. His labs today reveal a white blood cell count of 5.50, hemoglobin 7.6, sodium level of 135, BUN of 9 creatinine 0.37 and magnesium level of 1.8. 06/30/2024 Patient is evaluated in follow-up in the medical floor. He has no acute complaints at this time. He does report again mild improvement in his right ear pain and he continues with the eardrops. Had a long discussion with patient's son over and over the phone regarding discharge planning. Alan is apprehensive about allowing child to return home due to his complex medical needs and somebody having to stay up with him overnight for suctioning and trach care. Open would like [facility] to [facility] for at least another month or so until his other brother comes home from college. Will need to follow-up with patient tomorrow regarding this and awaiting other referrals for any other excepting facility as patient really does not want to return to the [facility]. 07/01/2024 Patient evaluated today resting in bed. Per nursing he was lethargic overnight but seems improved today. Patient is currently a bed at a subacute rehab [facility] and social work following. He remains on IV ceftazidime/avibactam. Chest x-ray today Reveals stable chest with left-sided pleural effusion. There is opacification of the right lung base and left lung base. Patient is on TPN. Patient is afebrile, heart rate 53, blood pressure 144/67, 100% on trach collar. Review of Systems Constitutional: Denied any fatigue denied any fever. Cardio vascular: denied any chest pain, palpitations Gastrointestinal: denied any nausea, vomiting, diarrhea Pulmonary: Denied any shortness of breath cough Neurologic denied any new focal deficits All inpatient medications were reviewed and appropriate changes in these medications as dictated in the interval history and assessment and plan. PHYSICAL EXAMINATION: GENERAL: Patient is awake alert oriented x3. HEENT: Pupils are round and equally reacting to light. EOMI. No scleral icterus. No conjunctival pallor. Normocephalic, atraumatic. No pharyngeal erythema. No thyromegaly. Tracheostomy in place. CARDIOVASCULAR: S1 and S2 present. No murmurs, rubs, or gallops. PULMONARY: Chest is clear to auscultation, no wheezing or crackles. ABDOMEN: Soft, nontender, nondistended, normoactive bowel sounds. No palpable organomegaly. MUSCULOSKELETAL: No joint swelling or deformity. EXTREMITIES: No cyanosis, clubbing, or pedal edema. NEUROLOGICAL: Sedated at this time SKIN: No rashes. Assessment and plan Bilateral gram-negative pneumonia possibility of aspiration infectious disease and multiple other consultants are following the patient - Acute respiratory failure requiring mechanical ventilation status post bronchoalveolar lavage; cultures growing pseudomonas and corynebacterium. Patient has been extubated and tolerating the trach collar. 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 Patient will be moved out of the intensive care unit. Referrals have been sent out for subacute rehab by case management and patient does not want to [facility] he may need to go to LTAC though. Need to follow-up with family tomorrow regarding discharge planning if family can accommodate the patient at home. At this time plan remains in place for discharge to [facility] and pending accepting facility. He will continue on IV antibiotic therapy on discharge for a 10-day course per infectious disease. The impression and plan of care has been dictated by Coral Medina, Nurse Practitioner as directed. Dr. Mo MD I have performed a history and physical examination and medical decision making of this patient, discussed the same with the dictator, and agree with the dictators assessment and plan as written, documented as a scribe. Based on total visit time, I have performed more than 50% of this visit. Objective - Vital Signs Vital signs: Vital Signs Temp 97.9 F 07/01/24 11:03 Pulse 101 H 07/01/24 14:00 Resp 20 07/01/24 14:00 BP 144/67 07/01/24 11:03 Pulse Ox 94 L 07/01/24 11:30 FiO2 40 07/01/24 11:30 Intake & Output 06/30/24 07/01/24 07/01/24 18:59 06:59 18:59 Output Total 2175 1550 1100 Balance -2175 -1550 -1100 Weight 89.5 kg Output: Urine 1175 1000 Stool 2667 265 3121 Other: Voiding Method Indwelling Catheter Indwelling Catheter Indwelling Catheter - Labs CBC & Chem 7: 06/29/24 05:33 07/01/24 06:18 Labs: Abnormal Lab Results - Last 24 Hours (Table) 07/01/24 07/01/24 07/01/24 Range/Units 00:13 04:57 05:43 ABG pH 7.27 L (7.35-7.45) ABG pCO2 76 H* (35-45) mmHg ABG pO2 77 L (83-108) mmHg ABG HCO3 35 H (21-25) mmol/L ABG Total CO2 37 H (19-24) mmol/L Hemoglobin 8.5 L (13.0-17.5) gm/dL Sodium (137-145) mmol/L Creatinine (0.66-1.25) mg/dL Glucose (74-99) mg/dL POC Glucose (mg/dL) 153 H 163 H (70-110) mg/dL 07/01/24 07/01/24 07/01/24 Range/Units 06:12 06:18 11:28 ABG pH (7.35-7.45) ABG pCO2 (35-45) mmHg ABG pO2 (83-108) mmHg ABG HCO3 (21-25) mmol/L ABG Total CO2 (19-24) mmol/L Hemoglobin (13.0-17.5) gm/dL Sodium 136 L (137-145) mmol/L Creatinine 0.30 L (0.66-1.25) mg/dL Glucose 154 H (74-99) mg/dL POC Glucose (mg/dL) 165 H 159 H (70-110) mg/dL Assessment and Plan Time with Patient: Less than 30
[2024-07-01 16:35] LABS: Glucose,Whole Blood 73 mg/dL (70-110)
[2024-07-01 23:53] LABS: Glucose,Whole Blood 168 mg/dL (70-110)
[2024-07-02] MEDS ORDERED: CEFTAZIDIME/AVIBACTAM 2.5 GM in SODIUM CHLORIDE 0.9% 100 ML IVPB SCH (02:00)
[2024-07-02] MEDS: CEFTAZIDIME/AVIBACTAM 2.5 GM in SODIUM CHLORIDE 0.9% 100 ML IVPB SCH (02:46)
[2024-07-02 06:19] LABS: Glucose,Whole Blood 173 mg/dL (70-110)
[2024-07-02 06:49] LABS: African American GFR (CKD) >90 (>60 ml/min/1.73 sqM); Anion Gap 2 mmol/L; Blood Urea Nitrogen 15 mg/dL (9-20); Calcium 9.3 mg/dL (8.4-10.2); Carbon Dioxide 35 mmol/L (22-30); Chloride 100 mmol/L (98-107); Glucose 164 mg/dL (74-99); Magnesium 2.1 mg/dL (1.6-2.3); Non-African American GFR(CKD) >90 (>60 ml/min/1.73 sqM); Phosphorus 2.4 mg/dL (2.5-4.5); Potassium 4.4 mmol/L (3.5-5.1); Sodium 137 mmol/L (137-145)
--- NOTE | 2024-07-02 11:13 | P.PN ---
Subjective Progress Note Date: 07/02/24 Principal diagnosis: Chest pain. Seen today on 06/25/2024, patient remains in the ICU, intubated and mechanically ventilated, patient has a tracheostomy in place, he is on assist-control rate of 20 tidal volume 500 FiO2 35% and PEEP of 5 no ABG was done today. Chest x-ray continues to show improvement in his left lower lobe infiltrate/pneumonia WBC count is 5.4 hemoglobin 8.2 platelets are 155 electrolytes are normal renal profile is normal patient remains on nutritional support/TPN, he is on norepinephrine 0.06 mcg/kg/min propofol at 10 mcg/kg/min TPN at 50 cc/h. Remains on cefepime for his gram-negative pneumonia, patient failed pressure support and CPAP yesterday, he lasted less than half an hour. Will try again today with a pressure support of 12 or 14 and CPAP, and if he does well with pressure support and CPAP, may eventually changed the patient to a trach collar as he was prior to all of this. Patient was seen today on 06/26/2024, remains in the ICU, intubated and mechanically ventilated, patient has tracheostomy in place, he is on assist- control rate of 20 tidal volume 500 FiO2 35% PEEP of 5 yesterday he tolerated pressure support of 12 and CPAP until early evening, and at night patient was placed back on assist-control mode of mechanical ventilation he is now on assist-control mode of mechanical ventilation, and I plan to put him back on pressure support and CPAP and if tolerated may switch him to trach collar. Remains on TPN at 50 cc/h. Chest x-ray showing mostly basilar atelectasis, no evidence of pulmonary edema. Patient does have atelectatic changes and low lung volumes. WBC count is 4.7 hemoglobin 7.6 electrolytes are normal renal profile is normal. Seen today on 06/27/2024, remains in the ICU, patient tolerated trach collar sinc e yesterday, and has not been back on the ventilator for the last almost 24 hours. Doing well, he is on 35 % FiO2 trach collar, WBC count today is 5.27 hemoglobin 7.3 electrolytes are normal renal profile is normal Seen today on 06/28/2024, patient remains in the ICU, on trach collar, and 35% FiO2, the cuff on the tracheostomy has been deflated, patient is tolerating clear liquid diet, and I am planning to advance the diet as tolerated patient remains on TPN in the meantime at 50 cc/h, overall the patient is steadily improving. And has been off mechanical ventilation now for the last 2 days. Chest x-ray showed improvement in his left lower lobe pneumonia patient did have to go bronchoscopy and BAL of the left lower lobe at 1 point few days ago. His WBC count is 5.5 hemoglobin 7.4 electrolytes are normal renal profile is normal. 06/29/2024: Patient seen and examined at the bedside. Patient remains on trach collar with the settings of FiO2 28% on 5 L. He has been off mechanical ventilation since 06/26/2024. He is tolerating clear liquid diet. Continues to be on TPN at 50 cc/h. Chest x-ray from yesterday showed improvement in left lower lobe pneumonia. Patient had a bronchial wash on 06/22/2024 was positive for Pseudomonas aeruginosa. Patient is currently on IV Avycaz. Urine output is good. Ileostomy is functioning well. Labs show WBC 5.0, hemoglobin 7.6, sodium 135, potassium 3.9, chloride 98, bicarb 34, BUN 9, creatinine 0.37, glucose 105, magnesium 1.8. Patient may be able to downgraded to 3 S today pending bed availability. Progress note dated June 30, 2024. The patient is seen today in room 368. Yesterday, the patient was in the intensive care unit. The patient is on a trach collar 28%. He is getting TPN at 83 cc an hour. The patient appears relatively stable, without any distress. Current labs include a sodium 133, potassium 4.2, chloride 96, CO2 36, BUN 13, creatinine 0.37. Glucose is 138. Calcium 8.9. Albumin is 3. BAL sampling was positive for Pseudomonas aeruginosa. Sputum, was also positive for Pseudomonas, on June 21. No chest x-ray today. Progress note dated July 01, 2024. 49-year-old male seen today in room 368. Currently, the patient is on trach collar at 40%. He is getting TPN at 85 cc an hour. Apparently the patient was a bit lethargic last night, and our nurse practitioner ordered a blood gas showing a PO2 of 77, pCO2 of 76, and a pH of 7.27. I believe that was when he was on a 28% trach collar. Anyway, the patient was seen again by the nurse practitioner a bit later, and was much more awake and alert. On the initial evaluation, the patient was a bit lethargic and sleepy. Repeat blood gas was ordered, but was not able to be performed, as respiratory therapy was not able to get the blood gas. Currently, he seems to be doing relatively well. Current labs include 4.1, chlorides 99, CO2 30, BUN 14, and creatinine is 0.30. Glucose is 159. Chest x-ray reveals bibasilar opacities, and a left-sided pleural effusion. Progress note dated July 02, 2024. 49-year-old male seen today in room 368. The patient continues on trach collar 35%. He is getting TPN at 85 cc an hour. He is much more awake and alert today. Respiratory therapy mentioned that they were able to suction the mucous plugs from his tracheostomy tube, which improved his oxygenation, and allowed his FiO2 to be reduced from 40%, to 35%. Prior to that, the patient was on 28% trach collar. Current laboratory data includes a sodium 137, potassium 4.4, chlorides 100, CO2 35, BUN 15, creatinine 0.31. Glucose is 173. Calcium 9.3, phosphorus 2.4. Chest x-ray from yesterday is stable. Please see my notes above. Objective - Vital Signs Vital signs: Vital Signs Temp 98.0 F 07/02/24 08:00 Pulse 98 07/02/24 09:28 Resp 22 07/02/24 08:00 BP 148/78 07/02/24 08:00 Pulse Ox 99 07/02/24 08:50 FiO2 35 07/02/24 08:50 Intake & Output 07/01/24 07/02/24 07/02/24 18:59 06:59 18:59 Intake Total 1043 Output Total 1100 1775 943 Balance -57 -3234 -139 Weight 90.5 kg Intake: Intake, IV Titration 1043 Amount Sodium Chloride 4Meq/ml 1043 Vial 44 meq Potassium Chloride 30 meq Calcium Gluconate 1 gm Magnesium Sulfate gm 1 gm Sodium Phosphate 15 mmol In Amino Acids 5 %/Dextrose 20 % 1,000 ml @ 85 mls/hr IV .[facility] Rx#: [id number] Output: Urine 1175 250 Stool 1100 600 300 Other: Voiding Method Indwelling Catheter Indwelling Catheter Indwelling Catheter - Exam No acute distress, oriented 3. Awake and alert. 35% tracheostomy collar in place. HEENT examination is grossly unremarkable. Mucous membranes are moist. No oral lesions. Neck supple. Full range of motion. No adenopathy thyromegaly or neck vein distention. Midline tracheostomy is noted. Cardiovascular examination reveals regular rhythm rate. S1-S2 normal. No S3 or S4. No discernible murmur noted. Lungs reveal mostly clear breath sounds. No wheezes. No crackles. Breath sounds are equal bilaterally. Abdomen soft, with bowel sounds. No masses or tenderness. The patient has an enterocutaneous fistula, as well as a functioning ileostomy. Extremities are intact. No cyanosis clubbing or edema. Skin is without rash or lesion. Neurologic examination is brief but nonfocal. - Labs CBC & Chem 7: 06/29/24 05:33 07/02/24 06:14 Labs: Abnormal Lab Results - Last 24 Hours (Table) 07/01/24 07/01/24 07/02/24 Range/Units 11:28 23:48 06:14 Carbon Dioxide 35 H (22-30) mmol/L Creatinine 0.31 L (0.66-1.25) mg/dL Glucose 164 H (74-99) mg/dL POC Glucose (mg/dL) 159 H 168 H (70-110) mg/dL Phosphorus 2.4 L (2.5-4.5) mg/dL 07/02/24 Range/Units 06:17 Carbon Dioxide (22-30) mmol/L Creatinine (0.66-1.25) mg/dL Glucose (74-99) mg/dL POC Glucose (mg/dL) 173 H (70-110) mg/dL Phosphorus (2.5-4.5) mg/dL Assessment and Plan Assessment: Acute on chronic hypoxemic and hypercapnic respiratory failure, multifactorial. Acute left lower lobe pneumonia. Tracheal stenosis. History of recurrent ventilator dependent respiratory failure, secondary to pneumonia and mucous plugging. Recent bronchoscopy, on June 22, 2024, revealed evidence of Pseudomonas aerugin master. Previous bronchoscopy is also showing evidence of Klebsiella pneumoniae, Bella, and Pseudomonas. History of sepsis, secondary to pneumonia. Crohn's disease, with previous bowel perforation, status post colectomy and diverting ileostomy. Tracheobronchomalacia. History of DVT. History of CVA/TIA. Right below the knee amputation. History of asystole/cardiac arrest, 2021. Hypotension, resolved. Plan: Plan dated June 30, 2024. The patient continues on a trach collar 28%. The patient is receiving TPN at 83 cc an hour. All labs, x-rays, and medications are reviewed. The patient continues on DVT and GI prophylaxis. We will continue to follow. Prognosis is guarded. The patient was transferred out of the intensive care unit yesterday. We will continue to follow make recommendations along the way. Dictation was produced using [employer] software. Please excuse any grammatical, word or spelling errors. Plan dated July 01, 2024. The patient is currently on a 40% trach collar. He has been on the 28% trach collar, and I did asked the nurse to have respiratory titrate him down, as long as his saturations are adequate. The patient's labs are reviewed. Last night, my nurse practitioner was called to the bedside, because the patient was very out of it, lethargic, and a blood gas revealed worsening hypercapnic respiratory failure. This morning, he is much more awake and alert. He is on a 40% trach collar, which can be titrated down. Repeat blood gas was ordered, but I do not believe is necessary at this time. We will continue to follow make recommendations. Prognosis is certainly guarded. All labs, x-rays, and medications are reviewed. Dictation was produced using [employer] software. Please excuse any grammatical, word or spelling errors. Plan dated July 02, 2024. The patient is seen today in room 368. He is on trach collar 35%. The patient is also receiving TPN at 85 cc an hour. The patient is stable for transfer out of the hospital. All labs, x-rays, and medications are reviewed. We will continue to follow the patient. No additional recommendations are made. Prognosis is guarded. Dictation was produced using [employer] software. Please excuse any grammatical, word or spelling errors. Time with Patient: Less than 30
[2024-07-02 12:24] LABS: Glucose,Whole Blood 161 mg/dL (70-110)
[2024-07-02] MEDS ORDERED: VANCOMYCIN IV PER PHARMACY 1 EACH MISC MISCELLANE PRN (12:49)
[2024-07-02] MEDS: VANCOMYCIN 1,750 MG in SODIUM CHLORIDE 0.9% 500 ML 500 ML IVPB SCH (15:46)
--- NOTE | 2024-07-02 16:09 | P.PN ---
Subjective Progress Note Date: 07/02/24 Patient admitted for bilateral cramping due to pneumonia gram-negative organism is not identified yet patient had Pseudomonas in the past patient underwent bronchoscopy patient remains on mechanical ventilation broad-spectrum antibiotics patient has a tracheostomy in place. Patient underwent bronchoalveolar lavage. 06/26/2024 Patient is evaluated in the ICU. Remains on the mechanical ventilator with FiO2 of 40%. Sputum culture reveals pseudomonas aeruginosa, corynebacterium striatum group. He remains on antibiotics with IV ceftazidime/Avibactam. TPN infusing. Labs today reveal white blood cell count 4.72, hgb 7.6, sodium 135, potassium 4.0, BUN 13, creatinine 0.39. Magnesium 1.9. Triglycerides of 183.00. 06/27/2024 Patient is evaluated in the intensive care unit. He is currently on the trach collar. Awake alert and oriented. Chest xray today shows left lower lobe atelectasis or pneumonia. Per mother at the bedside he was only [facility] day prior to returning to the hospital. He will likely need to return to [facility] on DC. Remains on TPN. White blood cell count 5.07, hgb 7.3, sodium 134, BUN 11, creatinine 0.34. 06/28/2024 Patient is eval today in intensive care unit. He is complaining of pain in the right ear manual examination does reveal some erythema of the canal and eardrum. We will add eardrops and monitor for improvement in symptoms. Patient is awake alert oriented he has tolerated trach collar. Chest x-ray today reveals a developing left lower lobe infiltrate with a small effusion which may be present. He continues on IV meropenem for positive sputum and bronchial washings of Pseudomonas aeruginosa and corynebacterium striatum group. Labs today reveal a white blood cell count of 5.55, hemoglobin 7.4, sodium 135, BUN of 11 creatinine 0.40. 06/29/2024 Patient is evaluated in the intensive care unit he is currently downgraded and pending a bed on the medical floor. Patient is ready for discharge and did discuss with the patient that he needs to follow-up with his family and I will also talk with his family regarding discharge planning if he is able to discharge home versus subacute rehab versus LTAC. Patient is adamant that that [facility] not [facility]. Due to his complex medical needs including PEG tube, TPN, his tracheostomy, ileostomy, and IV antibiotics he may not be a candidate for subacute rehabilitation but referrals were placed by social work. He does state that his right ear feels better after being initiated on antibiotic eardrops and they will be continued at this time. His labs today reveal a white blood cell count of 5.50, hemoglobin 7.6, sodium level of 135, BUN of 9 creatinine 0.37 and magnesium level of 1.8. 06/30/2024 Patient is evaluated in follow-up in the medical floor. He has no acute complaints at this time. He does report again mild improvement in his right ear pain and he continues with the eardrops. Had a long discussion with patient's son over and over the phone regarding discharge planning. Alan is apprehensive about allowing child to return home due to his complex medical needs and somebody having to stay up with him overnight for suctioning and trach care. Open would like [facility] to [facility] for at least another month or so until his other brother comes home from college. Will need to follow-up with patient tomorrow regarding this and awaiting other referrals for any other excepting facility as patient really does not want to return to the [facility]. 07/01/2024 Patient evaluated today resting in bed. Per nursing he was lethargic overnight but seems improved today. Patient is currently a bed at a subacute rehab [facility] and social work following. He remains on IV ceftazidime/avibactam. Chest x-ray today Reveals stable chest with left-sided pleural effusion. There is opacification of the right lung base and left lung base. Patient is on TPN. Patient is afebrile, heart rate 53, blood pressure 144/67, 100% on trach collar. 07/02/2024 Patient evaluated today in follow up. No acute complaints at this time. Still pending accepting rehab facility. Remains on the IV ceftazidime/avibactam. Review of Systems Constitutional: Denied any fatigue denied any fever. Cardio vascular: denied any chest pain, palpitations Gastrointestinal: denied any nausea, vomiting, diarrhea Pulmonary: Denied any shortness of breath cough Neurologic denied any new focal deficits All inpatient medications were reviewed and appropriate changes in these medications as dictated in the interval history and assessment and plan. PHYSICAL EXAMINATION: GENERAL: Patient is awake alert oriented x3. HEENT: Pupils are round and equally reacting to light. EOMI. No scleral icterus. No conjunctival pallor. Normocephalic, atraumatic. No pharyngeal erythema. No thyromegaly. Tracheostomy in place. CARDIOVASCULAR: S1 and S2 present. No murmurs, rubs, or gallops. PULMONARY: Chest is clear to auscultation, no wheezing or crackles. ABDOMEN: Soft, nontender, nondistended, normoactive bowel sounds. No palpable organomegaly. MUSCULOSKELETAL: No joint swelling or deformity. EXTREMITIES: No cyanosis, clubbing, or pedal edema. NEUROLOGICAL: Sedated at this time SKIN: No rashes. Assessment and plan Bilateral gram-negative pneumonia possibility of aspiration infectious disease and multiple other consultants are following the patient - Acute respiratory failure requiring mechanical ventilation status post bronchoalveolar lavage; cultures growing pseudomonas and corynebacterium. Patient has been extubated and tolerating the trach collar. 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 Patient will be moved out of the intensive care unit. Referrals have been sent out for subacute rehab by case management and patient does not want to [facility] he may need to go to LTAC though. Need to follow-up with family tomorrow regarding discharge planning if family can accommodate the patient at home. At this time plan remains in place for discharge to [facility] and pending accepting facility. He will continue on IV antibiotic therapy on discharge for a 10-day course per infectious disease. The impression and plan of care has been dictated by Coral Medina Nurse Practitioner as directed. Dr. Mo MD I have performed a history and physical examination and medical decision making of this patient, discussed the same with the dictator, and agree with the dictators assessment and plan as written, documented as a scribe. Based on total visit time, I have performed more than 50% of this visit. Objective - Vital Signs Vital signs: Vital Signs Temp 98.3 F 07/02/24 15:57 Pulse 97 07/02/24 15:57 Resp 18 07/02/24 15:57 BP 130/67 07/02/24 15:57 Pulse Ox 99 07/02/24 15:57 FiO2 35 07/02/24 15:57 Intake & Output 07/01/24 07/02/24 07/02/24 18:59 06:59 18:59 Intake Total 1043 0 Output Total 1100 1775 1250 Balance -57 -1775 -1250 Weight 90.5 kg 90.5 kg Intake: Intake, IV Titration 1043 Amount Sodium Chloride 4Meq/ml 1043 Vial 44 meq Potassium Chloride 30 meq Calcium Gluconate 1 gm Magnesium Sulfate gm 1 gm Sodium Phosphate 15 mmol In Amino Acids 5 %/Dextrose 20 % 1,000 ml @ 85 mls/hr IV .BY DURATION [facility] Rx#: [id number] Oral 0 Output: Urine 1175 650 Stool 1100 600 600 Other: Voiding Method Indwelling Catheter Indwelling Catheter Indwelling Catheter - Labs CBC & Chem 7: 06/29/24 05:33 07/02/24 06:14 Labs: Abnormal Lab Results - Last 24 Hours (Table) 07/01/24 07/02/24 07/02/24 Range/Units 23:48 06:14 06:17 Carbon Dioxide 35 H (22-30) mmol/L Creatinine 0.31 L (0.66-1.25) mg/dL Glucose 164 H (74-99) mg/dL POC Glucose (mg/dL) 168 H 173 H (70-110) mg/dL Phosphorus 2.4 L (2.5-4.5) mg/dL 07/02/24 Range/Units 12:23 Carbon Dioxide (22-30) mmol/L Creatinine (0.66-1.25) mg/dL Glucose (74-99) mg/dL POC Glucose (mg/dL) 161 H (70-110) mg/dL Phosphorus (2.5-4.5) mg/dL Assessment and Plan Time with Patient: Less than 30
[2024-07-02 17:59] LABS: Glucose,Whole Blood 153 mg/dL (70-110)
[2024-07-02] MEDS: 1: MVI, ADULT NO.4 WITH VIT K 10 ML, TRACE (CONC-1ML/DOSE) 1 ML, SODIUM CHLORIDE 4MEQ/ML IV SCH (18:13)
[2024-07-02 20:11] LABS: Glucose,Whole Blood 160 mg/dL (70-110)
[2024-07-02 23:39] LABS: Glucose,Whole Blood 158 mg/dL (70-110)
[2024-07-03 06:15] LABS: Glucose,Whole Blood 167 mg/dL (70-110)
[2024-07-03 07:02] LABS: Basophils # (A) 0.04 10*3/uL (0.00-0.10); Basophils % (A) 0.6 %; Eosinophils # (A) 0.16 10*3/uL (0.04-0.35); Eosinophils % (A) 2.6 %; HGB 8.9 g/dL (13.0-17.0); Lymphocytes # (A) 1.91 10*3/uL (0.90-5.00); Lymphocytes % (A) 30.5 %; MCH 24.9 pg (27.0-32.0); MCHC 27.8 g/dL (32.0-37.0); MCV 89.4 fL (80.0-97.0); Mean Platelet Volume 12.2 fL (9.5-12.2); Monocytes # (A) 0.47 10*3/uL (0.20-1.00); Monocytes % (A) 7.5 %; Neutrophils # (A) 3.67 10*3/uL (1.80-7.70); Neutrophils % (A) 58.6 %; Platelet Count 239 10*3/uL (140-440); RBC 3.58 10*6/uL (4.40-5.60); RDW 17.2 % (11.5-14.5); WBC 6.26 10*3/uL (4.50-10.00)
[2024-07-03 07:23] LABS: Magnesium 1.9 mg/dL (1.6-2.3); Phosphorus 2.2 mg/dL (2.5-4.5)
[2024-07-03 08:23] LABS: Ionized Calcium 5.2 mg/dL (4.5-5.3)
[2024-07-03 10:22] LABS: African American GFR (CKD) >90 (>60 ml/min/1.73 sqM); Anion Gap 4 mmol/L; Blood Urea Nitrogen 14 mg/dL (9-20); Calcium 9.1 mg/dL (8.4-10.2); Carbon Dioxide 34 mmol/L (22-30); Chloride 99 mmol/L (98-107); Glucose 177 mg/dL (74-99); Non-African American GFR(CKD) >90 (>60 ml/min/1.73 sqM); Potassium 4.1 mmol/L (3.5-5.1); Sodium 137 mmol/L (137-145)
[2024-07-03 11:42] LABS: Glucose,Whole Blood 212 mg/dL (70-110)
--- NOTE | 2024-07-03 12:12 | P.PN ---
Subjective Progress Note Date: 07/03/24 06/29/2024: Patient seen and examined at the bedside. Patient remains on trach collar with the settings of FiO2 28% on 5 L. He has been off mechanical ventilation since 06/26/2024. He is tolerating clear liquid diet. Continues to be on TPN at 50 cc/h. Chest x-ray from yesterday showed improvement in left lower lobe pneumonia. Patient had a bronchial wash on 06/22/2024 was positive for Pseudomonas aeruginosa. Patient is currently on IV Avycaz. Urine output is good. Ileostomy is functioning well. Labs show WBC 5.0, hemoglobin 7.6, sodium 135, potassium 3.9, chloride 98, bicarb 34, BUN 9, creatinine 0.37, glucose 105, magnesium 1.8. Patient may be able to downgraded to 3 S today pending bed av ailability. Progress note dated June 30, 2024. The patient is seen today in room 368. Yesterday, the patient was in the intensive care unit. The patient is on a trach collar 28%. He is getting TPN at 83 cc an hour. The patient appears relatively stable, without any distress. Current labs include a sodium 133, potassium 4.2, chloride 96, CO2 36, BUN 13, creatinine 0.37. Glucose is 138. Calcium 8.9. Albumin is 3. BAL sampling was positive for Pseudomonas aeruginosa. Sputum, was also positive for Pseudomonas, on June 21. No chest x-ray today. Progress note dated July 01, 2024. 49-year-old male seen today in room 368. Currently, the patient is on trach collar at 40%. He is getting TPN at 85 cc an hour. Apparently the patient was a bit lethargic last night, and our nurse practitioner ordered a blood gas showing a PO2 of 77, pCO2 of 76, and a pH of 7.27. I believe that was when he was on a 28% trach collar. Anyway, the patient was seen again by the nurse practitioner a bit later, and was much more awake and alert. On the initial evaluation, the patient was a bit lethargic and sleepy. Repeat blood gas was ordered, but was not able to be performed, as respiratory therapy was not able to get the blood gas. Currently, he seems to be doing relatively well. Current labs include 4.1, chlorides 99, CO2 30, BUN 14, and creatinine is 0.30. Glucose is 159. Chest x-ray reveals bibasilar opacities, and a left-sided pleural effusion. Progress note dated July 02, 2024. 49-year-old male seen today in room 368. The patient continues on trach collar 35%. He is getting TPN at 85 cc an hour. He is much more awake and alert today. Respiratory therapy mentioned that they were able to suction the mucous plugs from his tracheostomy tube, which improved his oxygenation, and allowed his FiO2 to be reduced from 40%, to 35%. Prior to that, the patient was on 28% trach collar. Current laboratory data includes a sodium 137, potassium 4.4, chlorides 100, CO2 35, BUN 15, creatinine 0.31. Glucose is 173. Calcium 9.3, phosphorus 2.4. Chest x-ray from yesterday is stable. Please see my notes above. The patient is seen today July 03, 2024 in follow-up on the regular medical floor. He is currently resting in bed. Awake and alert in no acute distress. Currently on trach collar at 40% FiO2. Count 6.2. Hemoglobin 8.9. Platelets 239. Sodium 137. Potassium 4.1. Bicarb 34. BUN 14. Creatinine 0.34. Glucose 177. He is very nourished with TPN at 85 mL/h. Lipids every 72 hours. Continued on DuoNeb and elations, Pulmicort and performance inhalations. Continued on Avycaz and vancomycin. Anticoagulated with Lovenox 90 mg SQ every 12 hours. Objective - Vital Signs Vital signs: Vital Signs Temp 98.0 F 07/03/24 07:09 Pulse 94 07/03/24 09:06 Resp 18 07/03/24 07:09 BP 148/79 07/03/24 07:09 Pulse Ox 89 L 07/03/24 07:09 FiO2 40 07/03/24 08:46 Intake & Output 07/02/24 07/03/24 07/03/24 18:59 06:59 18:59 Intake Total 0 1054 1029 Output Total 1250 800 400 Balance -1250 254 629 Weight 90.5 kg 92 kg Intake: Intake, IV Titration 1054 1029 Amount Mvi, Adult No.4 with Vit 1054 K 10 ml Trace (Conc-1Ml/ Dose) 1 ml Sodium Chloride 4Meq/ml Vial 44 meq Potassium Chloride 30 meq Calcium Gluconate 1 gm Magnesium Sulfate gm 1 gm Sodium Phosphate 15 mmol In Amino Acids 5 %/ Dextrose 20 % 1,000 ml @ 85 mls/hr IV .BY DURATION [facility] Rx#:[id number] Mvi, Adult No.4 with Vit 1029 K 10 ml Trace (Conc-1Ml/ Dose) 1 ml Sodium Chloride 4Meq/ml Vial 48 meq Potassium Chloride 26 meq Calcium Gluconate 1 gm Magnesium Sulfate gm 1 gm Sodium Phosphate 18 mmol In Amino Acids 5 %/ Dextrose 20 % 1,000 ml @ 85 mls/hr IV .BY DURATION [facility] Rx#:[id number] Oral 0 Output: Urine 650 500 400 Male - External 500 Stool 600 300 Other: Voiding Method Indwelling Catheter Indwelling Catheter Indwelling Catheter - Exam GENERAL EXAM: Alert, 49-year-old male patient, on 40% trach collar, comfortable in no apparent distress. HEAD: Normocephalic. EYES: Normal reaction of pupils, equal size. NOSE: Clear with pink turbinates. THROAT: Tracheostomy tube secured in place. No erythema or exudates. NECK: No masses, no JVD. CHEST: No chest wall deformity. LUNGS: Equal air entry with coarse rhonchi bilaterally. CVS: S1 and S2 normal with no audible murmur, regular rhythm. ABDOMEN: Enterocutaneous fistula over the abdominal wall. No hepatosplenomegaly, normal bowel sounds, no guarding or rigidity. SPINE: No scoliosis or deformity SKIN: No rashes CENTRAL NERVOUS SYSTEM: No focal deficits, tone is normal in all 4 extremities. EXTREMITIES: Extensive muscle atrophy. Contractures. There is no peripheral edema. No clubbing, no cyanosis. Peripheral pulses are intact. - Labs CBC & Chem 7: 07/03/24 06:37 07/03/24 07:32 Labs: Abnormal Lab Results - Last 24 Hours (Table) 07/02/24 07/02/24 07/02/24 Range/Units 12:23 17:58 20:07 RBC (4.40-5.60) 10*6/uL Hgb (13.0-17.0) g/dL Hct (39.6-50.0) % MCH (27.0-32.0) pg MCHC (32.0-37.0) g/dL Carbon Dioxide (22-30) mmol/L Creatinine (0.66-1.25) mg/dL Glucose (74-99) mg/dL POC Glucose (mg/dL) 161 H 153 H 160 H (70-110) mg/dL Phosphorus (2.5-4.5) mg/dL 07/02/24 07/03/24 07/03/24 Range/Units 23:37 06:14 06:27 RBC (4.40-5.60) 10*6/uL Hgb (13.0-17.0) g/dL Hct (39.6-50.0) % MCH (27.0-32.0) pg MCHC (32.0-37.0) g/dL Carbon Dioxide (22-30) mmol/L Creatinine (0.66-1.25) mg/dL Glucose (74-99) mg/dL POC Glucose (mg/dL) 158 H 167 H (70-110) mg/dL Phosphorus 2.2 L (2.5-4.5) mg/dL 07/03/24 07/03/24 07/03/24 Range/Units 06:37 07:32 11:40 RBC 3.58 L (4.40-5.60) 10*6/uL Hgb 8.9 L (13.0-17.0) g/dL Hct 32.0 L (39.6-50.0) % MCH 24.9 L (27.0-32.0) pg MCHC 27.8 L (32.0-37.0) g/dL Carbon Dioxide 34 H (22-30) mmol/L Creatinine 0.31 L (0.66-1.25) mg/dL Glucose 177 H (74-99) mg/dL POC Glucose (mg/dL) 212 H (70-110) mg/dL Phosphorus (2.5-4.5) mg/dL Assessment and Plan Assessment: Acute on chronic hypoxemic and hypercapnic respiratory failure, multifactorial. Acute left lower lobe pneumonia. Tracheal stenosis. History of recurrent ventilator dependent respiratory failure, secondary to pneumonia and mucous plugging. Recent bronchoscopy, on June 22, 2024, revealed evidence of Pseudomonas aeruginosa. Previous bronchoscopy is also showing evidence of Klebsiella pneumoniae, Bella, and Pseudomonas. History of sepsis, secondary to pneumonia. Crohn's disease, with previous bowel perforation, status post colectomy and diverting ileostomy. Tracheobronchomalacia. History of DVT. History of CVA/TIA. Right below the knee amputation. History of asystole/cardiac arrest, 2021. Hypotension, resolved. Plan: The patient was seen and evaluated Labs and medications reviewed Currently on trach collar 40% FiO2 Titrate down the FiO2 as tolerated Continue on Avycaz and vancomycin Remains on TPN and lipids Anticoagulated with Lovenox Continue DuoNeb inhalations Continue Pulmicort and Perforomist inhalations Protonix for GI prophylaxis Discharge planning in place Will continue to follow I have personally seen and examined the patient, performed the documentation and the assessment and plan as written. Number of minutes spent on the visit: 20 Dictation was produced using [employer] dictation software. Please excuse any grammatical, word or spelling errors.
[2024-07-03] MEDS: SODIUM PHOSPHATE 15 MMOL in DEXTROSE 5% IN WATER 250 ML IVPB ONE (13:58)
--- NOTE | 2024-07-03 14:43 | P.PN ---
Subjective Progress Note Date: 07/01/24 Principal diagnosis: Reason for follow-up abnormal chest x-ray question pneumonia Patient is a 49-year-old male with a past medical history significant for chron's disease in this patient who did have multiple surgeries and complication as far as abdominal surgeries did have history of recurrent pneumonia vent dependent respiratory failure currently on a trach collar CVA TIA patient has been brought into the hospital concerning for chest pain patient also have abnormal chest x-ray concern for possible pneumonia prompting this consultation. On today's evaluation that is 07/01/2024,the patient denies any fever or any chills, patient is complaining of shortness of breath and has been up more sputum no chest pain has some nausea vomiting, no diarrhea has been reported. Patient did have a creatinine 0.30 no CBC was done today Objective - Vital Signs Vital signs: Vital Signs Temp 97.9 F 07/01/24 11:03 Pulse 53 L 07/01/24 11:40 Resp 20 07/01/24 11:03 BP 144/67 07/01/24 11:03 Pulse Ox 94 L 07/01/24 11:30 FiO2 40 07/01/24 11:30 Intake & Output 06/30/24 07/01/24 07/01/24 18:59 06:59 18:59 Output Total 2175 1550 550 Balance -2175 -1550 -550 Weight 89.5 kg Output: Urine 1175 1000 Stool 1000 550 550 Other: Voiding Method Indwelling Catheter Indwelling Catheter Indwelling Catheter - Exam GENERAL DESCRIPTION: Middle-age male lying in bed in no distress RESPIRATORY SYSTEM: Unlabored breathing , decreased breath sounds at bases HEART: S1 S2 regular rate and rhythm , ABDOMEN: Soft , no tenderness EXTREMITIES: No edema feet - Labs CBC & Chem 7: 07/03/24 06:37 07/03/24 07:32 Labs: Abnormal Lab Results - Last 24 Hours (Table) 07/01/24 07/01/24 07/01/24 Range/Units 00:13 04:57 05:43 ABG pH 7.27 L (7.35-7.45) ABG pCO2 76 H* (35-45) mmHg ABG pO2 77 L (83-108) mmHg ABG HCO3 35 H (21-25) mmol/L ABG Total CO2 37 H (19-24) mmol/L Hemoglobin 8.5 L (13.0-17.5) gm/dL Sodium (137-145) mmol/L Creatinine (0.66-1.25) mg/dL Glucose (74-99) mg/dL POC Glucose (mg/dL) 153 H 163 H (70-110) mg/dL 07/01/24 07/01/24 07/01/24 Range/Units 06:12 06:18 11:28 ABG pH (7.35-7.45) ABG pCO2 (35-45) mmHg ABG pO2 (83-108) mmHg ABG HCO3 (21-25) mmol/L ABG Total CO2 (19-24) mmol/L Hemoglobin (13.0-17.5) gm/dL Sodium 136 L (137-145) mmol/L Creatinine 0.30 L (0.66-1.25) mg/dL Glucose 154 H (74-99) mg/dL POC Glucose (mg/dL) 165 H 159 H (70-110) mg/dL Assessment and Plan (1) Abnormal chest x-ray Current Visit: Yes Status: Acute Code(s): R93.89 - ABNORMAL FINDINGS ON DX IMAGING OF OTH BODY STRUCTURES SNOMED Code(s): 046048688 (2) Penicillin allergy Current Visit: Yes Status: Acute Code(s): Z88.0 - SNOMED Code(s): 9 7588659 (3) Pneumonia Current Visit: No Status: Acute Code(s): J18.9 - PNEUMONIA, UNSPECIFIED ORGANISM SNOMED Code(s): 911302027 (4) Sepsis Current Visit: No Status: Acute Code(s): A41.9 - SEPSIS, UNSPECIFIED ORGANISM SNOMED Code(s): 01563810 Plan: 1patient did have worsening of his respiratory status requiring intubation and transferred to ICU also spiked a fever And did have a heart rate in the 90s medically ready for SIRS/sepsis source likely left lower lobe pneumonia concerning for possible gram-negative in this patient who did have Zosyn allergies that would limit the number of antibiotics safe to use. 2patient is status post bronchoscopy lavage as well as sputum culture which is currently growing multidrug-resistant Pseudomonas aeruginosa resistant to meropenem sensitive to Zosyn however the patient is allergic to Zosyn 3patient is afebrile white count has been normal patient is currently being treated with Avycaz because of multiresistant Pseudomonas a to finish total of 14-day course of therapy Mother at the bedside question answered Dictation was produced using [employer] software. please excuse any grammatical, word or spelling errors. Time with Patient: Less than 30
--- NOTE | 2024-07-03 14:44 | P.PN ---
Subjective Progress Note Date: 07/03/24 Principal diagnosis: Reason for follow-up abnormal chest x-ray question pneumonia Patient is a 49-year-old male with a past medical history significant for chron's disease in this patient who did have multiple surgeries and complication as far as abdominal surgeries did have history of recurrent pneumonia vent dependent respiratory failure currently on a trach collar CVA TIA patient has been brought into the hospital concerning for chest pain patient also have abnormal chest x-ray concern for possible pneumonia prompting this consultation. On today's evaluation that is 07/02/2024,the patient remains to be afebrile, patient is on trach collar 28% oxygen and complaining of shortness of breath no chest pain still have significant amount of purulent secretion through the ET no vomiting or worsening output through his ileostomy. Patient did have a creatinine 0.31 no CBC was done today, patient sputum also growing Corynebacterium which was initially disregarded as a possible contamination Objective - Vital Signs Vital signs: Vital Signs Temp 98.0 F 07/03/24 07:09 Pulse 100 07/03/24 12:21 Resp 18 07/03/24 07:09 BP 148/79 07/03/24 07:09 Pulse Ox 89 L 07/03/24 07:09 FiO2 40 07/03/24 08:46 Intake & Output 07/02/24 07/03/24 07/03/24 18:59 06:59 18:59 Intake Total 0 1054 1029 Output Total 1250 800 400 Balance -1250 254 629 Weight 90.5 kg 92 kg Intake: Intake, IV Titration 1054 1029 Amount Mvi, Adult No.4 with Vit 1054 K 10 ml Trace (Conc-1Ml/ Dose) 1 ml Sodium Chloride 4Meq/ml Vial 44 meq Potassium Chloride 30 meq Calcium Gluconate 1 gm Magnesium Sulfate gm 1 gm Sodium Phosphate 15 mmol In Amino Acids 5 %/ Dextrose 20 % 1,000 ml @ 85 mls/hr IV .BY DURATION [facility] Rx#:[id number] Mvi, Adult No.4 with Vit 1029 K 10 ml Trace (Conc-1Ml/ Dose) 1 ml Sodium Chloride 4Meq/ml Vial 48 meq Potassium Chloride 26 meq Calcium Gluconate 1 gm Magnesium Sulfate gm 1 gm Sodium Phosphate 18 mmol In Amino Acids 5 %/ Dextrose 20 % 1,000 ml @ 85 mls/hr IV .BY DURATION [facility] Rx#:[id number] Oral 0 Output: Urine 650 500 400 Male - External 500 Stool 600 300 Other: Voiding Method Indwelling Catheter Indwelling Catheter Indwelling Catheter - Exam GENERAL DESCRIPTION: Middle-age male lying in bed in no distress RESPIRATORY SYSTEM: Unlabored breathing , decreased breath sounds at bases HEART: S1 S2 regular rate and rhythm , ABDOMEN: Soft , no tenderness EXTREMITIES: No edema feet - Labs CBC & Chem 7: 07/03/24 06:37 07/03/24 07:32 Labs: Abnormal Lab Results - Last 24 Hours (Table) 07/02/24 07/02/24 07/02/24 Range/Units 17:58 20:07 23:37 RBC (4.40-5.60) 10*6/uL Hgb (13.0-17.0) g/dL Hct (39.6-50.0) % MCH (27.0-32.0) pg MCHC (32.0-37.0) g/dL Carbon Dioxide (22-30) mmol/L Creatinine (0.66-1.25) mg/dL Glucose (74-99) mg/dL POC Glucose (mg/dL) 153 H 160 H 158 H (70-110) mg/dL Phosphorus (2.5-4.5) mg/dL 07/03/24 07/03/24 07/03/24 Range/Units 06:14 06:27 06:37 RBC 3.58 L (4.40-5.60) 10*6/uL Hgb 8.9 L (13.0-17.0) g/dL Hct 32.0 L (39.6-50.0) % MCH 24.9 L (27.0-32.0) pg MCHC 27.8 L (32.0-37.0) g/dL Carbon Dioxide (22-30) mmol/L Creatinine (0.66-1.25) mg/dL Glucose (74-99) mg/dL POC Glucose (mg/dL) 167 H (70-110) mg/dL Phosphorus 2.2 L (2.5-4.5) mg/dL 07/03/24 07/03/24 Range/Units 07:32 11:40 RBC (4.40-5.60) 10*6/uL Hgb (13.0-17.0) g/dL Hct (39.6-50.0) % MCH (27.0-32.0) pg MCHC (32.0-37.0) g/dL Carbon Dioxide 34 H (22-30) mmol/L Creatinine 0.31 L (0.66-1.25) mg/dL Glucose 177 H (74-99) mg/dL POC Glucose (mg/dL) 212 H (70-110) mg/dL Phosphorus (2.5-4.5) mg/dL Assessment and Plan (1) Abnormal chest x-ray Current Visit: Yes Status: Acute Code(s): R93.89 - ABNORMAL FINDINGS ON DX IMAGING OF OTH BODY STRUCTURES SNOMED Code(s): 029141575 (2) Penicillin allergy Current Visit: Yes Status: Acute Code(s): Z88.0 - SNOMED Code(s): 48774346 (3) Pneumonia Current Visit: No Status: Acute Code(s): J18.9 - PNEUMONIA, UNSPECIFIED ORGANISM SNOMED Code(s): 732683345 (4) Sepsis Current Visit: No Status: Acute Code(s): A41.9 - SEPSIS, UNSPECIFIED ORGANISM SNOMED Code(s): 77937281 Plan: 1patient did have worsening of his respiratory status requiring intubation and transferred to ICU also spiked a fever And did have a heart rate in the 90s medically ready for SIRS/sepsis source likely left lower lobe pneumonia concerning for possible gram-negative in this patient who did have Zosyn allergies that would limit the number of antibiotics safe to use. 2patient is status post bronchoscopy lavage as well as sputum culture which is currently growing multidrug-resistant Pseudomonas aeruginosa resistant to meropenem sensitive to Zosyn however the patient is allergic to Zosyn 3patient is afebrile white count has been normal however the patient was complaining of more shortness of breath he also have significant amount of purulent secretion he did grew corynebacterium in the sputum which was initially disregard is possible contamination however keeping in mind his worsening symptom we will add vancomycin and continue Avycaz and monitor clinical course closely Dictation was produced using [employer] dictation software. please excuse any grammatical, word or spelling errors. Time with Patient: Less than 30
--- NOTE | 2024-07-03 14:46 | P.PN ---
Subjective Progress Note Date: 07/03/24 Principal diagnosis: Reason for follow-up abnormal chest x-ray question pneumonia Patient is a 49-year-old male with a past medical history significant for chron's disease in this patient who did have multiple surgeries and complication as far as abdominal surgeries did have history of recurrent pneumonia vent dependent respiratory failure currently on a trach collar CVA TIA patient has been brought into the hospital concerning for chest pain patient also have abnormal chest x-ray concern for possible pneumonia prompting this consultation. On today's evaluation that is 07/03/2024 the patient continues to be afebrile breathing slightly comfortably still on the trach collar FiO2 25% no chest pain no worsening cough no nausea vomiting or abdominal pain. Patient white count 6.26 creatinine 0.31 Objective - Vital Signs Vital signs: Vital Signs Temp 99.3 F 07/03/24 12:00 Pulse 100 07/03/24 12:29 Resp 19 07/03/24 12:00 BP 115/69 07/03/24 12:00 Pulse Ox 99 07/03/24 12:00 FiO2 40 07/03/24 12:00 - Exam GENERAL DESCRIPTION: Middle-age male lying in bed in no distress RESPIRATORY SYSTEM: Unlabored breathing , decreased breath sounds at bases HEART: S1 S2 regular rate and rhythm , ABDOMEN: Soft , no tenderness EXTREMITIES: No edema feet - Labs CBC & Chem 7: 07/03/24 06:37 07/03/24 07:32 Labs: Abnormal Lab Results - Last 24 Hours (Table) 07/01/24 07/02/24 07/02/24 Range/Units 23:48 06:14 06:17 Carbon Dioxide 35 H (22-30) mmol/L Creatinine 0.31 L (0.66-1.25) mg/dL Glucose 164 H (74-99) mg/dL POC Glucose (mg/dL) 168 H 173 H (70-110) mg/dL Phosphorus 2.4 L (2.5-4.5) mg/dL 07/02/24 Range/Units 12:23 Carbon Dioxide (22-30) mmol/L Creatinine (0.66-1.25) mg/dL Glucose (74-99) mg/dL POC Glucose (mg/dL) 161 H (70-110) mg/dL Phosphorus (2.5-4.5) mg/dL Assessment and Plan (1) Abnormal chest x-ray Current Visit: Yes Status: Acute Code(s): R93.89 - ABNORMAL FINDINGS ON DX IMAGING OF OTH BODY STRUCTURES SNOMED Code(s): 492382349 (2) Penicillin allergy Current Visit: Yes Status: Acute Code(s): Z88.0 - SNOMED Code(s): 91656532 (3) Pneumonia Current Visit: No Status: Acute Code(s): J18.9 - PNEUMONIA, UNSPECIFIED ORGANISM SNOMED Code(s): 668873165 (4) Sepsis Current Visit: No Status: Acute Code(s): A41.9 - SEPSIS, UNSPECIFIED ORGANISM SNOMED Code(s): 30414251 Plan: 1patient did have worsening of his respiratory status requiring intubation and transferred to ICU also spiked a fever And did have a heart rate in the 90s medically ready for SIRS/sepsis source likely left lower lobe pneumonia concerning for possible gram-negative in this patient who did have Zosyn allergies that would limit the number of antibiotics safe to use. 2patient is status post bronchoscopy lavage as well as sputum culture which is currently growing multidrug-resistant Pseudomonas aeruginosa resistant to meropenem sensitive to Zosyn however the patient is allergic to Zosyn 3patient is afebrile white count has been normal however we will treat with van comycin and Avycaz and monitor clinical course closely Mother at the bedside question answered Dictation was produced using [employer] dictation software. please excuse any grammatical, word or spelling errors.
[2024-07-03 15:38] LABS: BUN/Creat Ratio 40.67 Ratio (12.00-20.00)
[2024-07-03 16:41] LABS: Glucose,Whole Blood 189 mg/dL (70-110)
[2024-07-03] MEDS: 1: MVI, ADULT NO.4 WITH VIT K 10 ML, TRACE (CONC-1ML/DOSE) 1 ML, SODIUM CHLORIDE 4MEQ/ML IV SCH (19:49)
[2024-07-03] MEDS: CEFTAZIDIME/AVIBACTAM 2.5 GM in SODIUM CHLORIDE 0.9% 100 ML IVPB SCH (20:26)
--- NOTE | 2024-07-03 23:05 | P.PN ---
Subjective Progress Note Date: 07/03/24 Patient admitted for bilateral cramping due to pneumonia gram-negative organism is not identified yet patient had Pseudomonas in the past patient underwent bronchoscopy patient remains on mechanical ventilation broad-spectrum antibiotics patient has a tracheostomy in place. Patient underwent bronchoalveolar lavage. 06/26/2024 Patient is evaluated in the ICU. Remains on the mechanical ventilator with FiO2 of 40%. Sputum culture reveals pseudomonas aeruginosa, corynebacterium striatum group. He remains on antibiotics with IV ceftazidime/Avibactam. TPN infusing. Labs today reveal white blood cell count 4.72, hgb 7.6, sodium 135, potassium 4.0, BUN 13, creatinine 0.39. Magnesium 1.9. Triglycerides of 183.00. 06/27/2024 Patient is evaluated in the intensive care unit. He is currently on the trach collar. Awake alert and oriented. Chest xray today shows left lower lobe atelectasis or pneumonia. Per mother at the bedside he was only [facility] day prior to returning to the hospital. He will likely need to return [facility]. Remains on TPN. White blood cell count 5.07, hgb 7.3, sodium 134, BUN 11, creatinine 0.34. 06/28/2024 Patient is eval today in intensive care unit. He is complaining of pain in the right ear manual examination does reveal some erythema of the canal and eardrum. We will add eardrops and monitor for improvement in symptoms. Patient is awake alert oriented he has tolerated trach collar. Chest x-ray today reveals a developing left lower lobe infiltrate with a small effusion which may be present. He continues on IV meropenem for positive sputum and bronchial washings of Pseudomonas aeruginosa and corynebacterium striatum group. Labs today reveal a white blood cell count of 5.55, hemoglobin 7.4, sodium 135, BUN of 11 creatinine 0.40. 06/29/2024 Patient is evaluated in the intensive care unit he is currently downgraded and pending a bed on the medical floor. Patient is ready for discharge and did discuss with the patient that he needs to follow-up with his family and I will also talk with his family regarding discharge planning if he is able to discharge home versus subacute rehab versus LTAC. Patient is adamant that that [facility] not [facility]. Due to his complex medical needs including PEG tube, TPN, his tracheostomy, ileostomy, and IV antibiotics he may not be a candidate for subacute rehabilitation but referrals were placed by social work. He does state that his right ear feels better after being initiated on antibiotic eardrops and they will be continued at this time. His labs today reveal a white blood cell count of 5.50, hemoglobin 7.6, sodium level of 135, BUN of 9 creatinine 0.37 and magnesium level of 1.8. 06/30/2024 Patient is evaluated in follow-up in the medical floor. He has no acute complaints at this time. He does report again mild improvement in his right ear pain and he continues with the eardrops. Had a long discussion with patient's son over and over the phone regarding discharge planning. Alan is apprehensive about allowing child to return home due to his complex medical needs and somebody having to stay up with him overnight for suctioning and trach care. Open would like [facility] to [facility] for at least another month or so until his other brother comes home from college. Will need to follow-up with patient tomorrow regarding this and awaiting other referrals for any other excepting facility as patient really does not want to return to the [facility]. 07/01/2024 Patient evaluated today resting in bed. Per nursing he was lethargic overnight but seems improved today. Patient is currently a bed at [facility] and social work following. He remains on IV ceftazidime/avibactam. Chest x-ray today Reveals stable chest with left-sided pleural effusion. There is opacification of the right lung base and left lung base. Patient is on TPN. Patient is afebrile, heart rate 53, blood pressure 144/67, 100% on trach collar. 07/02/2024 Patient evaluated today in follow up. No acute complaints at this time. Still pending accepting rehab facility. Remains on the IV ceftazidime/avibactam. 07/03/2024 Patient evaluated today in follow up was downgraded to the general medical floor. Report the right ear pain and fullness is better. He continues on IV ceftazidime/Avibactam and IV vancomycin for the pseudomonas in the sputum. No accepting facility so far. He may need to remain hospitalized while he finishes course of antibiotics. He is tolerating the trach collar. Review of Systems Constitutional: Denied any fatigue denied any fever. Cardio vascular: denied any chest pain, palpitations Gastrointestinal: denied any nausea, vomiting, diarrhea Pulmonary: Denied any shortness of breath cough Neurologic denied any new focal deficits All inpatient medications were reviewed and appropriate changes in these medications as dictated in the interval history and assessment and plan. PHYSICAL EXAMINATION: GENERAL: Patient is awake alert oriented x3. HEENT: Pupils are round and equally reacting to light. EOMI. No scleral icterus. No conjunctival pallor. Normocephalic, atraumatic. No pharyngeal erythema. No thyromegaly. Tracheostomy in place. CARDIOVASCULAR: S1 and S2 present. No murmurs, rubs, or gallops. PULMONARY: Chest is clear to auscultation, no wheezing or crackles. ABDOMEN: Soft, nontender, nondistended, normoactive bowel sounds. No palpable organomegaly. MUSCULOSKELETAL: No joint swelling or deformity. EXTREMITIES: No cyanosis, clubbing, or pedal edema. NEUROLOGICAL: Sedated at this time SKIN: No rashes. Assessment and plan Bilateral gram-negative pneumonia possibility of aspiration infectious disease and multiple other consultants are following the patient - Acute respiratory failure requiring mechanical ventilation status post bronchoalveolar lavage; cultures growing pseudomonas and corynebacterium. Patient has been extubated and tolerating the trach collar. 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 Patient will be moved out of the intensive care unit. Referrals have been sent out for subacute rehab by case management and patient does not [facility] he may need to go to LTAC though. Need to follow-up with family tomorrow regarding discharge planning if family can accommodate the patient at home. At this time plan remains in place for discharge to [facility] and pending accepting facility. He will continue on IV antibiotic therapy on discharge for a 10-day course per infectious disease. The impression and plan of care has been dictated by Coral Medina, Nurse Practitioner as directed. Dr. Mo MD I have performed a history and physical examination and medical decision making of this patient, discussed the same with the dictator, and agree with the dictators assessment and plan as written, documented as a scribe. Based on total visit time, I have performed more than 50% of this visit. Objective - Vital Signs Vital signs: Vital Signs Temp 98.1 F 07/03/24 20:14 Pulse 94 07/03/24 20:53 Resp 15 07/03/24 20:14 BP 126/69 07/03/24 20:14 Pulse Ox 92 L 07/03/24 20:14 FiO2 40 07/03/24 08:46 Intake & Output 07/03/24 07/03/24 07/04/24 06:59 18:59 06:59 Intake Total 1054 1029 Output Total 800 1575 Balance 254 -546 Weight 92 kg Intake: Intake, IV Titration 1054 1029 Amount Mvi, Adult No.4 with Vit 1054 K 10 ml Trace (Conc-1Ml/ Dose) 1 ml Sodium Chloride 4Meq/ml Vial 44 meq Potassium Chloride 30 meq Calcium Gluconate 1 gm Magnesium Sulfate gm 1 gm Sodium Phosphate 15 mmol In Amino Acids 5 %/ Dextrose 20 % 1,000 ml @ 85 mls/hr IV .BY DURATION [facility] Rx#:[id number] Mvi, Adult No.4 with Vit 1029 K 10 ml Trace (Conc-1Ml/ Dose) 1 ml Sodium Chloride 4Meq/ml Vial 48 meq Potassium Chloride 26 meq Calcium Gluconate 1 gm Magnesium Sulfate gm 1 gm Sodium Phosphate 18 mmol In Amino Acids 5 %/ Dextrose 20 % 1,000 ml @ 85 mls/hr IV .BY DURATION [facility] Rx#:[id number] Output: Urine 500 1575 Male - External 500 Stool 300 Other: Voiding Method Indwelling Catheter Indwelling Catheter - Labs CBC & Chem 7: 07/03/24 06:37 07/03/24 07:32 Labs: Abnormal Lab Results - Last 24 Hours (Table) 07/02/24 07/03/24 07/03/24 Range/Units 23:37 06:14 06:27 RBC (4.40-5.60) 10*6/uL Hgb (13.0-17.0) g/dL Hct (39.6-50.0) % MCH (27.0-32.0) pg MCHC (32.0-37.0) g/dL Carbon Dioxide (22-30) mmol/L Creatinine (0.66-1.25) mg/dL BUN/Creatinine Ratio (12.00-20.00) Ratio Glucose (74-99) mg/dL POC Glucose (mg/dL) 158 H 167 H (70-110) mg/dL Phosphorus 2.2 L (2.5-4.5) mg/dL Triglycerides (0.00-149.00) mg/dL 07/03/24 07/03/24 07/03/24 Range/Units 06:37 07:32 11:40 RBC 3.58 L (4.40-5.60) 10*6/uL Hgb 8.9 L (13.0-17.0) g/dL Hct 32.0 L (39.6-50.0) % MCH 24.9 L (27.0-32.0) pg MCHC 27.8 L (32.0-37.0) g/dL Carbon Dioxide 34 H (22-30) mmol/L Creatinine 0.31 L (0.66-1.25) mg/dL BUN/Creatinine Ratio 40.67 H (12.00-20.00) Ratio Glucose 177 H (74-99) mg/dL POC Glucose (mg/dL) 212 H (70-110) mg/dL Phosphorus (2.5-4.5) mg/dL Triglycerides 173.00 H (0.00-149.00) mg/dL 07/03/24 Range/Units 16:39 RBC (4.40-5.60) 10*6/uL Hgb (13.0-17.0) g/dL Hct (39.6-50.0) % MCH (27.0-32.0) pg MCHC (32.0-37.0) g/dL Carbon Dioxide (22-30) mmol/L Creatinine (0.66-1.25) mg/dL BUN/Creatinine Ratio (12.00-20.00) Ratio Glucose (74-99) mg/dL POC Glucose (mg/dL) 189 H (70-110) mg/dL Phosphorus (2.5-4.5) mg/dL Triglycerides (0.00-149.00) mg/dL Assessment and Plan Time with Patient: Less than 30
[2024-07-04 00:31] LABS: Glucose,Whole Blood 183 mg/dL (70-110)
[2024-07-04 04:36] LABS: Glucose,Whole Blood 213 mg/dL (70-110)
[2024-07-04] MEDS ORDERED: IPRATROPIUM-ALBUTEROL 3 ML NEB INHALATION PRN (05:21)
[2024-07-04 05:39] LABS: Glucose,Whole Blood 227 mg/dL (70-110)
[2024-07-04 06:20] LABS: Glucose,Whole Blood 235 mg/dL (70-110)
--- NOTE | 2024-07-04 06:51 | XR ---
EXAMINATION TYPE: XR chest 1V portable DATE OF EXAM: 07/04/2024 COMPARISON: 07/01/2024 CLINICAL INDICATION: Male, 49 years old with history of shortness of breath; TECHNIQUE: Single frontal view of the chest is obtained. FINDINGS: Tracheostomy tube is 3.6 cm above the avery. There is left-sided chest tube terminating in the SVC/R A junction. There is no change in the left lower lobe opacity. There is interval development of a small right ple ural effusion. There is no pneumothorax. Pulmonary vasculature appears mildly congested. IMPRESSION: Mild interval worsening in the acute bilateral cardiopulmonary disease. [facility], Workstation: [facility], 07/04/2024 6:48 AM
[2024-07-04 07:06] LABS: African American GFR (CKD) >90 (>60 ml/min/1.73 sqM); Anion Gap 6 mmol/L; Blood Urea Nitrogen 17 mg/dL (9-20); Calcium 9.2 mg/dL (8.4-10.2); Carbon Dioxide 32 mmol/L (22-30); Chloride 100 mmol/L (98-107); Glucose 229 mg/dL (74-99); Non-African American GFR(CKD) >90 (>60 ml/min/1.73 sqM); Sodium 138 mmol/L (137-145)
[2024-07-04 07:22] LABS: Magnesium 2.1 mg/dL (1.6-2.3); Phosphorus 3.1 mg/dL (2.5-4.5); Potassium 5.5 mmol/L (3.5-5.1)
[2024-07-04] MEDS: CISATRACURIUM 2 MG/ML 5 ML VIAL IV ONE (08:15)
--- NOTE | 2024-07-04 09:27 | PCN ---
PROCEDURE NOTE PROCEDURE: Right femoral vein triple-lumen catheter. PREOPERATIVE DIAGNOSES: Administration of fluids and pressors. POSTOPERATIVE DIAGNOSES: Administration of fluids and pressors. IMPREGNATOR AND DRIER: Dr. Munoz. FIRST HAND WEAVER: Danika Arenas. The patient's procedure took place in room 260. There was informed consent and universal timeout. TRIPLE LUMEN CATHETER PLACEMENT: Indication: Hemodynamic monitoring/Intravenous access. A time-out was completed verifying correct patient, procedure, site, positioning, and implant(s) or special equipment if applicable. The patient was placed in a dependent position appropriate for triple lumen catheter placement based on the vein to be cannulated. The patient's right groin was prepped and draped in sterile fashion. 1% Lidocaine was used to anesthetize the surrounding skin area. A triple lumen 9F Cordis catheter was introduced into the right femoral vein using Seldinger technique. The catheter was threaded smoothly over the guide wire and appropriate blood return was obtained. Each lumen of the catheter was evacuated of air and flushed with sterile saline. The catheter was then sutured in place to the skin and a sterile dressing applied. Perfusion to the extremity distal to the point of catheter insertion was checked and found to be adequate. There was good blood return from all 3 ports. The catheter was sutured in place. A sterile dressing was applied by the nurse. There was no immediate complication. MMODL / IJN: [id number] /
--- NOTE | 2024-07-04 09:33 | PCN ---
PROCEDURE NOTE PROCEDURE PERFORMED: Right femoral arterial line. PREOPERATIVE DIAGNOSIS: Frequent blood draws and blood gas monitoring. POSTOPERATIVE DIAGNOSIS: Frequent blood draws and blood gas monitoring. GENERAL STUDIES PROGRAM CHAIR: Dr. Munoz. FIRST METAL PICKLING EQUIPMENT OPERATOR: Dr. Danika Arenas. ARTERIAL LINE PLACEMENT: Indications: Hemodynamic monitoring. A time-out was completed verifying correct patient, procedure, site, positioning, and implant(s) or special equipment if applicable. Issa's test was performed to ensure adequate perfusion. The patient's right groin was prepped and draped in sterile fashion. 1% Lidocaine was used to anesthetize the area. An 18G Arrow arterial line was introduced into the femoral artery. The catheter was threaded over the guide wire and the needle was removed with appropriate pulsatile blood return. Blood loss was minimal. The catheter was then sutured in place to the skin and a sterile dressing applied. Perfusion to the extremity distal to the point of catheter insertion was checked and found to be adequate. There was good blood return and waveform. The patient tolerated procedure well. The catheter was sutured in place and a sterile dressing was applied by the nurse. There was no immediate complication. MMODL / IJN: [id number] /
[2024-07-04 09:48] LABS: ABG Base Excess 7.8 mmol/L; ABG HCO3 35 mmol/L (21-25); ABG Oxygen Saturation >100.0 % (94-97); ABG PCO2 63 mmHg (35-45); ABG PH 7.35 (7.35-7.45); ABG PO2 168 mmHg (83-108); ABG TCO2 36 mmol/L (19-24)
[2024-07-04 09:51] LABS: Allen Test Performed? no
--- NOTE | 2024-07-04 09:51 | PCN ---
PROCEDURE NOTE PROCEDURES PERFORMED: Bronchoscopy, airway examination, therapeutic lavage, bronchoalveolar lavage, right middle lobe. PREOPERATIVE DIAGNOSES: Mucous plugging, respiratory failure. POSTOPERATIVE DIAGNOSES: Mucous plugging, respiratory failure. STONE AND CONCRETE WASHER: Dr. Munoz. AUTOMATIC TOE LASTER: Dr. Arenas. The patient's procedure was done in room 260. The patient is currently on the ventilator. The patient was adequately sedated and paralyzed. The bronchoscope was inserted through the bronchoscope adapter connected to the endotracheal tube. The bronchoscope was pushed through the endotracheal tube into the distal airway. There were thick secretions noted in the distal trachea. Tracheal avery was sharp. The right and left mainstem were topicalized. We did a thorough evaluation of both lungs, including the right upper lobe and its 3 segments, right middle lobe and its 2 segments, right lower lobe and its 5 segments, left upper lobe proper and its 2 segments, lingula, and its 2 segments and left lower lobe and its 4 segments. There were thick secretions noted throughout. They were suctioned with some difficulty. Saline was used to aid in the suction of the secretions. The mucosa was erythematous and hyperemic. There was no dominant mass or tumor. There was some mucosal friability and some vascular engorgement. The bronchoscope was wedged into the right middle lobe. A formal BAL took place. The patient tolerated the procedure well. There was no immediate complication. The bronchoscope was withdrawn. The fluid will be sent for evaluation. MMODL / IJN: [id number] / MTDD
--- NOTE | 2024-07-04 10:04 | P.PN ---
Subjective Progress Note Date: 07/04/24 06/29/2024: Patient seen and examined at the bedside. Patient remains on trach collar with the settings of FiO2 28% on 5 L. He has been off mechanical ventilation since 06/26/2024. He is tolerating clear liquid diet. Continues to be on TPN at 50 cc/h. Chest x-ray from yesterday showed improvement in left lower lobe pneumonia. Patient had a bronchial wash on 06/22/2024 was positive for Pseudomonas aeruginosa. Patient is currently on IV Avycaz. Urine output is good. Ileostomy is functioning well. Labs show WBC 5.0, hemoglobin 7.6, sodium 135, potassium 3.9, chloride 98, bicarb 34, BUN 9, creatinine 0.37, glucose 105, magnesium 1.8. Patient may be able to downgraded to 3 S today pending bed av ailability. Progress note dated June 30, 2024. The patient is seen today in room 368. Yesterday, the patient was in the intensive care unit. The patient is on a trach collar 28%. He is getting TPN at 83 cc an hour. The patient appears relatively stable, without any distress. Current labs include a sodium 133, potassium 4.2, chloride 96, CO2 36, BUN 13, creatinine 0.37. Glucose is 138. Calcium 8.9. Albumin is 3. BAL sampling was positive for Pseudomonas aeruginosa. Sputum, was also positive for Pseudomonas, on June 21. No chest x-ray today. Progress note dated July 01, 2024. 49-year-old male seen today in room 368. Currently, the patient is on trach collar at 40%. He is getting TPN at 85 cc an hour. Apparently the patient was a bit lethargic last night, and our nurse practitioner ordered a blood gas showing a PO2 of 77, pCO2 of 76, and a pH of 7.27. I believe that was when he was on a 28% trach collar. Anyway, the patient was seen again by the nurse practitioner a bit later, and was much more awake and alert. On the initial evaluation, the patient was a bit lethargic and sleepy. Repeat blood gas was ordered, but was not able to be performed, as respiratory therapy was not able to get the blood gas. Currently, he seems to be doing relatively well. Current labs include 4.1, chlorides 99, CO2 30, BUN 14, and creatinine is 0.30. Glucose is 159. Chest x-ray reveals bibasilar opacities, and a left-sided pleural effusion. Progress note dated July 02, 2024. 49-year-old male seen today in room 368. The patient continues on trach collar 35%. He is getting TPN at 85 cc an hour. He is much more awake and alert today. Respiratory therapy mentioned that they were able to suction the mucous plugs from his tracheostomy tube, which improved his oxygenation, and allowed his FiO2 to be reduced from 40%, to 35%. Prior to that, the patient was on 28% trach collar. Current laboratory data includes a sodium 137, potassium 4.4, chlorides 100, CO2 35, BUN 15, creatinine 0.31. Glucose is 173. Calcium 9.3, phosphorus 2.4. Chest x-ray from yesterday is stable. Please see my notes above. The patient is seen today July 03, 2024 in follow-up on the regular medical floor. He is currently resting in bed. Awake and alert in no acute distress. Currently on trach collar at 40% FiO2. Count 6.2. Hemoglobin 8.9. Platelets 239. Sodium 137. Potassium 4.1. Bicarb 34. BUN 14. Creatinine 0.34. Glucose 177. He is very nourished with TPN at 85 mL/h. Lipids every 72 hours. Continued on DuoNeb and elations, Pulmicort and performance inhalations. Continued on Avycaz and vancomycin. Anticoagulated with Lovenox 90 mg SQ every 12 hours. The patient is seen today July 04, 2024 in follow-up in the intensive care unit. Earlier this morning he was found minimally responsive and hypoxemic on the regular medical floor and was transferred back into the intensive care unit and placed back on the mechanical ventilator. Currently on assist-control mode at a rate of 20, tidal volume 450, FiO2 100% and a PEEP of 5. Morning blood gases revealed a PaO2 of 168, pCO2 of 63 and a pH of 7.34. He is sedated on propofol at 20 mcg/kg/min. Normal saline at 10 mL/h. Receiving TPN at 85 mL/h. He remains on DuoNeb inhalations, Pulmicort and Perforomist inhalations, anticoagulated with Lovenox. Antibiotics in the form of vancomycin and Avycaz. Sodium 138. Potassium 5.5. Bicarb 32. BUN 17. Creatinine 0.31. Glucose 229. Objective - Vital Signs Vital signs: Vital Signs Temp 97.9 F 07/04/24 07:13 Pulse 101 H 07/04/24 09:18 Resp 20 07/04/24 07:13 BP 127/80 07/04/24 07:13 Pulse Ox 100 07/04/24 07:13 FiO2 100 07/04/24 09:00 Intake & Output 07/03/24 07/04/24 07/04/24 18:59 06:59 18:59 Intake Total 1029 1080 Output Total 1575 1950 200 Balance -546 -870 -200 Weight 92 kg Intake: Intake, IV Titration 1029 Amount Mvi, Adult No.4 with Vit 1029 K 10 ml Trace (Conc-1Ml/ Dose) 1 ml Sodium Chloride 4Meq/ml Vial 48 meq Potassium Chloride 26 meq Calcium Gluconate 1 gm Magnesium Sulfate gm 1 gm Sodium Phosphate 18 mmol In Amino Acids 5 %/ Dextrose 20 % 1,000 ml @ 85 mls/hr IV .BY DURATION [facility] Rx#:[id number] Oral 1080 Output: Urine 1575 1250 200 Stool 700 Other: Voiding Method Indwelling Catheter Indwelling Catheter - Exam GENERAL EXAM: Sedated 49-year-old male patient, on the mechanical ventilator, in no apparent distress. HEAD: Normocephalic. EYES: Normal reaction of pupils, equal size. NOSE: Clear with pink turbinates. THROAT: Tracheostomy tube secured in place. No erythema or exudates. NECK: No masses, no JVD. CHEST: No chest wall deformity. LUNGS: Equal air entry with coarse rhonchi bilaterally. CVS: S1 and S2 normal with no audible murmur, regular rhythm. ABDOMEN: Enterocutaneous fistula over the abdominal wall. No hepatosplenomegaly, normal bowel sounds. SPINE: No scoliosis or deformity SKIN: No rashes CENTRAL NERVOUS SYSTEM: No focal deficits, tone is normal in all 4 extremities. EXTREMITIES: Extensive muscle atrophy. Contractures. There is no peripheral edema. No clubbing, no cyanosis. Peripheral pulses are intact. - Labs CBC & Chem 7: 07/03/24 06:37 07/04/24 06:22 Labs: Abnormal Lab Results - Last 24 Hours (Table) 07/03/24 07/03/24 07/03/24 Range/Units 07:32 11:40 16:39 ABG pCO2 (35-45) mmHg ABG pO2 (83-108) mmHg ABG HCO3 (21-25) mmol/L ABG Total CO2 (19-24) mmol/L ABG O2 Saturation (94-97) % Hemoglobin (13.0-17.5) gm/dL Potassium (3.5-5.1) mmol/L Carbon Dioxide 34 H (22-30) mmol/L Creatinine 0.31 L (0.66-1.25) mg/dL BUN/Creatinine Ratio 40.67 H (12.00-20.00) Ratio Glucose 177 H (74-99) mg/dL POC Glucose (mg/dL) 212 H 189 H (70-110) mg/dL Triglycerides 173.00 H (0.00-149.00) mg/dL 07/04/24 07/04/24 07/04/24 Range/Units 00:29 04:35 05:38 ABG pCO2 (35-45) mmHg ABG pO2 (83-108) mmHg ABG HCO3 (21-25) mmol/L ABG Total CO2 (19-24) mmol/L ABG O2 Saturation (94-97) % Hemoglobin (13.0-17.5) gm/dL Potassium (3.5-5.1) mmol/L Carbon Dioxide (22-30) mmol/L Creatinine (0.66-1.25) mg/dL BUN/Creatinine Ratio (12.00-20.00) Ratio Glucose (74-99) mg/dL POC Glucose (mg/dL) 183 H 213 H 227 H (70-110) mg/dL Triglycerides (0.00-149.00) mg/dL 07/04/24 07/04/24 07/04/24 Range/Units 06:19 06:22 09:36 ABG pCO2 63 H (35-45) mmHg ABG pO2 168 H (83-108) mmHg ABG HCO3 35 H (21-25) mmol/L ABG Total CO2 36 H (19-24) mmol/L ABG O2 Saturation >100.0 H (94-97) % Hemoglobin 7.6 L (13.0-17.5) gm/dL Potassium 5.5 H (3.5-5.1) mmol/L Carbon Dioxide 32 H (22-30) mmol/L Creatinine 0.31 L (0.66-1.25) mg/dL BUN/Creatinine Ratio (12.00-20.00) Ratio Glucose 229 H (74-99) mg/dL POC Glucose (mg/dL) 235 H (70-110) mg/dL Triglycerides (0.00-149.00) mg/dL Assessment and Plan Assessment: Acute on chronic hypoxemic and hypercapnic respiratory failure, multifactorial. Transferred back into the intensive care unit 07/04/2024 and placed back on the mechanical ventilator Acute left lower lobe pneumonia. Reviewed bronchoscopy 06/22/2024 with cultures positive for Pseudomonas aeruginosa and corynebacterium striatum. Repeat b ronchoscopy with BAL 07/04/2024. Cultures pending Hypotension, currently receiving fluid resuscitation Tracheal stenosis History of recurrent ventilator dependent respiratory failure, secondary to pneumonia and mucous plugging History of sepsis, secondary to pneumonia. Crohn's disease, with previous bowel perforation, status post colectomy and diverting ileostomy. Tracheobronchomalacia History of DVT History of CVA/TIA Right below the knee amputation History of asystole/cardiac arrest, 2021 Plan: The patient was seen and evaluated Rapid response team called monico today Transfer back into the intensive care unit Placed back on mechanical ventilator Chest x-ray, ABGs, labs and medications reviewed Bronchoscopy with BAL repeated today Right femoral triple-lumen catheter and arterial line placed Currently receiving fluid resuscitation for hypotension Continue on Avycaz and vancomycin Remains on TPN and lipids Anticoagulated with Lovenox Continue DuoNeb inhalations Continue Pulmicort and Perforomist inhalations Protonix for GI prophylaxis Will continue to follow I have personally seen and examined the patient, performed the documentation and the assessment and plan as written. Number of minutes spent on the visit: 15 Dictation was produced using [employer] software. Please excuse any grammatical, word or spelling errors.
[2024-07-04] MEDS: SODIUM CHLORIDE 0.9% 1,000 ML IV SCH (10:12)
[2024-07-04 11:06] LABS: HCT 24.6 % (39.6-50.0); MCH 24.9 pg (27.0-32.0); MCV 88.8 fL (80.0-97.0); Mean Platelet Volume 11.6 fL (9.5-12.2); Platelet Count 255 10*3/uL (140-440); RBC 2.77 10*6/uL (4.40-5.60); RDW 16.9 % (11.5-14.5); WBC 6.07 10*3/uL (4.50-10.00)
[2024-07-04 11:07] LABS: HGB 6.9 g/dL (13.0-17.0)
[2024-07-04 11:29] LABS: Glucose,Whole Blood 168 mg/dL (70-110)
[2024-07-04 12:07] LABS: MCH 25.2 pg (27.0-32.0); MCHC 28.3 g/dL (32.0-37.0); MCV 88.9 fL (80.0-97.0); Mean Platelet Volume 11.5 fL (9.5-12.2); Platelet Count 240 10*3/uL (140-440); RDW 16.7 % (11.5-14.5); WBC 6.75 10*3/uL (4.50-10.00)
[2024-07-04 12:14] LABS: HGB 6.8 g/dL (13.0-17.0)
--- NOTE | 2024-07-04 14:01 | P.PN ---
Subjective Progress Note Date: 07/04/24 Patient admitted for bilateral cramping due to pneumonia gram-negative organism is not identified yet patient had Pseudomonas in the past patient underwent bronchoscopy patient remains on mechanical ventilation broad-spectrum antibiotics patient has a tracheostomy in place. Patient underwent bronchoalveolar lavage. 06/26/2024 Patient is evaluated in the ICU. Remains on the mechanical ventilator with FiO2 of 40%. Sputum culture reveals pseudomonas aeruginosa, corynebacterium striatum group. He remains on antibiotics with IV ceftazidime/Avibactam. TPN infusing. Labs today reveal white blood cell count 4.72, hgb 7.6, sodium 135, potassium 4.0, BUN 13, creatinine 0.39. Magnesium 1.9. Triglycerides of 183.00. 06/27/2024 Patient is evaluated in the intensive care unit. He is currently on the trach collar. Awake alert and oriented. Chest xray today shows left lower lobe atelectasis or pneumonia. Per mother at the bedside he was only home from the [facility] for one day prior to returning to the hospital. He will likely need to return to [facility] on DC. Remains on TPN. White blood cell count 5.07, hgb 7.3, sodium 134, BUN 11, creatinine 0.34. 06/28/2024 Patient is eval today in intensive care unit. He is complaining of pain in the right ear manual examination does reveal some erythema of the canal and eardrum. We will add eardrops and monitor for improvement in symptoms. Patient is awake alert oriented he has tolerated trach collar. Chest x-ray today reveals a developing left lower lobe infiltrate with a small effusion which may be present. He continues on IV meropenem for positive sputum and bronchial washings of Pseudomonas aeruginosa and corynebacterium striatum group. Labs today reveal a white blood cell count of 5.55, hemoglobin 7.4, sodium 135, BUN of 11 creatinine 0.40. 06/29/2024 Patient is evaluated in the intensive care unit he is currently downgraded and pending a bed on the medical floor. Patient is ready for discharge and did discuss with the patient that he needs to follow-up with his family and I will also talk with his family regarding discharge planning if he is able to discharge home versus subacute rehab versus LTAC. Patient is adamant that that he will not [facility]. Due to his complex medical needs including PEG tube, TPN, his tracheostomy, ileostomy, and IV antibiotics he may not be a candidate for subacute rehabilitation but referrals were placed by social work. He does state that his right ear feels better after being initiated on antibiotic eardrops and they will be continued at this time. His labs today reveal a white blood cell count of 5.50, hemoglobin 7.6, sodium level of 135, BUN of 9 creatinine 0.37 and magnesium level of 1.8. 06/30/2024 Patient is evaluated in follow-up in the medical floor. He has no acute complaints at this time. He does report again mild improvement in his right ear pain and he continues with the eardrops. Had a long discussion with patient's son over and over the phone regarding discharge planning. Alan is apprehensive about allowing child to return home due to his complex medical needs and somebody having to stay up with him overnight for suctioning and trach care. Open would like him to return to the [facility] for at least another month or so until his other brother comes home from college. Will need to follow-up with patient tomorrow regarding this and awaiting other referrals for any other excepting facility as patient really does not want to return to the [facility]. 07/01/2024 Patient evaluated today resting in bed. Per nursing he was lethargic overnight but seems improved today. Patient is currently a bed at a subacute rehab [facility] and social work following. He remains on IV ceftazidime/avibactam. Chest x-ray today Reveals stable chest with left-sided pleural effusion. There is opacification of the right lung base and left lung base. Patient is on TPN. Patient is afebrile, heart rate 53, blood pressure 144/67, 100% on trach collar. 07/02/2024 Patient evaluated today in follow up. No acute complaints at this time. Still pending accepting rehab facility. Remains on the IV ceftazidime/avibactam. 07/03/2024 Patient evaluated today in follow up was downgraded to the general medical floor. Report the right ear pain and fullness is better. He continues on IV ceftazidime/Avibactam and IV vancomycin for the pseudomonas in the sputum. No accepting facility so far. He may need to remain hospitalized while he finishes course of antibiotics. He is tolerating the trach collar. 07/04. Patient seen and examined. Patient was a teamed this morning for decrease responsiveness, was found to be hypoxemic, was transferred back to ICU and was placed on ventilator. Patient is currently on breathing treatments. Hemoglobin this morning was 6.8, 1 unit of packed red blood cells ordered. Patient has been started on Levophed REVIEW OF SYSTEMS: Review of system cannot be obtained as patient is currently intubated PHYSICAL EXAMINATION: GENERAL: The patient is intubated HEENT: Pupils are round and equally reacting to light. Trach collar seen CARDIOVASCULAR: S1 and S2 present. No murmurs, rubs, or gallops. PULMONARY: Diminished breath sounds at the bases, no wheezing or crackles. ABDOMEN: Soft, nontender, nondistended, normoactive bowel sounds. Ostomy seen MUSCULOSKELETAL: No joint swelling or deformity. EXTREMITIES: No cyanosis, clubbing, or pedal edema. NEUROLOGICAL: Gross neurological examination did not reveal any focal deficits. SKIN: No rashes. Assessment and plan Bilateral gram-negative pneumonia possibility of aspiration - Acute respiratory failure requiring mechanical ventilation ,bronchoscopy 06/22/2024 with cultures positive for Pseudomonas aeruginosa and corynebacterium striatum. Repeat bronchoscopy with BAL 07/04/2024 - Crohn's disease with ileostomy in the past patient is presently on TPN - Right sided otitis media - Tracheobronchomalacia - CVA TIA - History of DVT Monitor vital signs Monitor CBC Monitor CMP Continue telemetry monitoring Continue vent management bronchoscopy 06/22/2024 with cultures positive for Pseudomonas aeruginosa and corynebacterium striatum. Repeat bronchoscopy with BAL 07/04/2024 Ordered 1 unit of packed red blood cell Hold anticoagulation Started Levophed Continue on Avycaz and vancomycin Remains on TPN and lipids Continue DuoNeb inhalations Pulmonology following ID following Labs and medication were reviewed.. Continue same treatment. Continue with symptomatic treatment. Resume home medication. Monitor labs and vitals. DVT and GI prophylaxis. Further recommendations as per clinical course of the patient Dictation was produced using [employer] dictation software. please excuse any grammatical, word or spelling errors. Objective - Vital Signs Vital signs: Vital Signs Temp 100.2 F H 07/04/24 12:00 Pulse 85 07/04/24 12:33 Resp 20 07/04/24 12:00 BP 121/98 04/19/25 12:00 Pulse Ox 100 07/04/24 12:00 FiO2 50 07/04/24 12:13 Intake & Output 07/03/24 07/04/24 07/04/24 18:59 06:59 18:59 Intake Total 1029 1080 2450.476 Output Total 1575 1950 450 Balance -546 -870 2000.476 Weight 92 kg Intake: IV 2395 Ceftazidime/Avibactam 2.5 100 gm In Sodium Chloride 0. 9% 100 ml @ 50 mls/hr IVPB Q8H [facility] Rx#: [id number] KVO 40 Mvi, Adult No.4 with Vit 255 K 10 ml Trace (Conc-1Ml/ Dose) 1 ml Potassium Chloride 40 meq In Amino Acid 5%-D20w+Lytes*E* 1, 000 ml @ 50 mls/hr IV . [id number] [facility] Rx#:[id number] Sodium Chloride 0.9% 1, 2000 000 ml @ 999 mls/hr IV Q65M [facility] Rx#:[id number] Intake, IV Titration 1029 55.476 Amount Mvi, Adult No.4 with Vit 1029 K 10 ml Trace (Conc-1Ml/ Dose) 1 ml Sodium Chloride 4Meq/ml Vial 48 meq Potassium Chloride 26 meq Calcium Gluconate 1 gm Magnesium Sulfate gm 1 gm Sodium Phosphate 18 mmol In Amino Acids 5 %/ Dextrose 20 % 1,000 ml @ 85 mls/hr IV .BY DURATION [facility] Rx#:[id number] propofoL 1,000 mg In 55.476 Empty Bag 1 bag @ 15 MCG/ KG/MIN 8.28 mls/hr IV . Q12H5M [facility] Rx#:[id number] Oral 1080 Output: Urine 1575 1250 450 Stool 700 Other: Voiding Method Indwelling Catheter Indwelling Catheter Indwelling Catheter ABP, PAP, CO, CI - Last Documented Arterial Blood Pressure 83/36 - Labs CBC & Chem 7: 07/04/24 12:02 07/04/24 10:40 Labs: Abnormal Lab Results - Last 24 Hours (Table) 07/03/24 07/03/24 07/04/24 Range/Units 07:32 16:39 00:29 RBC (4.40-5.60) 10*6/uL Hgb (13.0-17.0) g/dL Hct (39.6-50.0) % MCH (27.0-32.0) pg MCHC (32.0-37.0) g/dL ABG pCO2 (35-45) mmHg ABG pO2 (83-108) mmHg ABG HCO3 (21-25) mmol/L ABG Total CO2 (19-24) mmol/L ABG O2 Saturation (94-97) % Hemoglobin (13.0-17.5) gm/dL Potassium (3.5-5.1) mmol/L Carbon Dioxide 34 H (22-30) mmol/L Creatinine 0.31 L (0.66-1.25) mg/dL BUN/Creatinine Ratio 40.67 H (12.00-20.00) Ratio Glucose 177 H (74-99) mg/dL POC Glucose (mg/dL) 189 H 183 H (70-110) mg/dL Triglycerides 173.00 H (0.00-149.00) mg/dL Crossmatch 07/04/24 07/04/24 07/04/24 Range/Units 04:35 05:38 06:19 RBC (4.40-5.60) 10*6/uL Hgb (13.0-17.0) g/dL Hct (39.6-50.0) % MCH (27.0-32.0) pg MCHC (32.0-37.0) g/dL ABG pCO2 (35-45) mmHg ABG pO2 (83-108) mmHg ABG HCO3 (21-25) mmol/L ABG Total CO2 (19-24) mmol/L ABG O2 Saturation (94-97) % Hemoglobin (13.0-17.5) gm/dL Potassium (3.5-5.1) mmol/L Carbon Dioxide (22-30) mmol/L Creatinine (0.66-1.25) mg/dL BUN/Creatinine Ratio (12.00-20.00) Ratio Glucose (74-99) mg/dL POC Glucose (mg/dL) 213 H 227 H 235 H (70-110) mg/dL Triglycerides (0.00-149.00) mg/dL Crossmatch 07/04/24 07/04/24 07/04/24 Range/Units 06:22 09:36 10:40 RBC 2.77 L (4.40-5.60) 10*6/uL Hgb 6.9 L* D (13.0-17.0) g/dL Hct 24.6 L (39.6-50.0) % MCH 24.9 L (27.0-32.0) pg MCHC 28.0 L (32.0-37.0) g/dL ABG pCO2 63 H (35-45) mmHg ABG pO2 168 H (83-108) mmHg ABG HCO3 35 H (21-25) mmol/L ABG Total CO2 36 H (19-24) mmol/L ABG O2 Saturation >100.0 H (94-97) % Hemoglobin 7.6 L (13.0-17.5) gm/dL Potassium 5.5 H (3.5-5.1) mmol/L Carbon Dioxide 32 H (22-30) mmol/L Creatinine 0.31 L (0.66-1.25) mg/dL BUN/Creatinine Ratio (12.00-20.00) Ratio Glucose 229 H (74-99) mg/dL POC Glucose (mg/dL) (70-110) mg/dL Triglycerides (0.00-149.00) mg/dL Crossmatch 07/04/24 07/04/24 07/04/24 Range/Units 11:27 12:02 12:29 RBC 2.70 L (4.40-5.60) 10*6/uL Hgb 6.8 L* (13.0-17.0) g/dL Hct 24.0 L (39.6-50.0) % MCH 25.2 L (27.0-32.0) pg MCHC 28.3 L (32.0-37.0) g/dL ABG pCO2 (35-45) mmHg ABG pO2 (83-108) mmHg ABG HCO3 (21-25) mmol/L ABG Total CO2 (19-24) mmol/L ABG O2 Saturation (94-97) % Hemoglobin (13.0-17.5) gm/dL Potassium (3.5-5.1) mmol/L Carbon Dioxide (22-30) mmol/L Creatinine (0.66-1.25) mg/dL BUN/Creatinine Ratio (12.00-20.00) Ratio Glucose (74-99) mg/dL POC Glucose (mg/dL) 168 H (70-110) mg/dL Triglycerides (0.00-149.00) mg/dL Crossmatch See Detail
--- NOTE | 2024-07-04 14:35 | P.CON ---
Consult Note - . Consult date: 07/04/24 Assessment/Plan:: Patient is a 49-year-old male with multiple medical problems presented to [facility] with chest discomfort. Patient currently in ICU and surgery was asked to evaluate for anemia. The patients two last hemoglobins have been 6.8 and 6.9. Per nursing staff, the patient is not having any bloody bowel movements or no blood from colostomy. There is no evidence of any bloody output from the OGT as well. Review of Systems ROS Statement: Those systems with pertinent positive or pertinent negative responses have been documented in the HPI. ROS Other: All systems not noted in ROS Statement are negative. Constitutional: Denies: fever Eyes: Denies: eye pain Respiratory: Reports: as per HPI, dyspnea Cardiovascular: Reports: as per HPI, chest pain Endocrine: Denies: fatigue Gastrointestinal: Denies: abdominal pain Musculoskeletal: Reports: as per HPI Past Medical History Past Medical History: CVA/TIA, Deep Vein Thrombosis (DVT) Additional Past Medical History / Comment(s): Progressing left upper thigh pain and swelling and left leg weakness. 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 Crohns. Ostomy Bag placed in 09/2021. History of Any Multi-Drug Resistant Organisms: MRSA, Other MDRO Date of last positivie culture/infection: 03/26/24-Other MDRO; 12/14/23-MRSA MDRO Source:: Other MDRO - sputum, BAL; MRSA- nasal Past Surgical History: Cholecystectomy, Orthopedic Surgery Additional Past Surgical History / Comment(s): Arm surgery, right leg below knee amputation, ostomy (2021) Past Anesthesia/Blood Transfusion Reactions: No Reported Reaction Additional Past Anesthesia/Blood Transfusion Reaction / Comment(s): recalled from previous admission Past Psychological History: No Psychological Hx Reported Smoking Status: Former smoker Past Alcohol Use History: None Reported Past Drug Use History: None Reported - Past Family History Father Additional Family Medical History / Comment(s): DAD IN HIS TWENTIES - CAUSE UNKNOWN. Mother Family Medical History: Diabetes Mellitus Brother(s) Family Medical History: Cancer Additional Family Medical History / Comment(s): Kidney cancer as a baby. General Exam Limitations: no limitations General appearance: alert, in no apparent distress Head exam: Present: normocephalic Eye exam: Present: normal appearance Neck exam: Present: normal inspection Respiratory exam: Present: rales Cardiovascular Exam: Present: regular rate, normal rhythm GI/Abdominal exam: Present: soft, other (Large ostomy bag and ostomy site). Absent: tenderness Extremities exam: Present: other (Right BKA). Absent: calf tenderness Neurological exam: Present: alert Psychiatric exam: Present: normal affect, normal mood Skin exam: Present: normal color 49 year old male evaluated for Anemia, ? GIB -Patient currently not having any evidence of GIB per nursing staff -Recommend transfuse 2 units PRBCs -Will check post transfusion Hgb -If patients hgb does not improve, patient may require endoscopic intervention George Montiel DO [facility] [phone]
--- NOTE | 2024-07-04 14:49 | P.PN ---
Subjective Progress Note Date: 07/04/24 Principal diagnosis: Reason for follow-up abnormal chest x-ray question pneumonia Patient is a 49-year-old male with a past medical history significant for chron's disease in this patient who did have multiple surgeries and complication as far as abdominal surgeries did have history of recurrent pneumonia vent dependent respiratory failure currently on a trach collar CVA TIA patient has been brought into the hospital concerning for chest pain patient also have abnormal chest x-ray concern for possible pneumonia prompting this consultation. On today's evaluation that is 07/04/2024, patient did have a low-grade fever 100.2 degrees Fahrenheit axillary this afternoon patient also have some hypotension worsening respiratory status requiring intubation and transferred to the ICU. The patient white count 6.75 hemoglobin 6.8, creatinine 0.31 Objective - Vital Signs Vital signs: Vital Signs Temp 100.2 F H 07/04/24 12:00 Pulse 85 07/04/24 12:33 Resp 20 07/04/24 12:00 BP 121/98 07/04/24 12:00 Pulse Ox 100 07/04/24 12:00 FiO2 50 07/04/24 12:13 Intake & Output 07/03/24 07/04/24 07/04/24 18:59 06:59 18:59 Intake Total 1029 1080 2450.476 Output Total 1575 1950 450 Balance -546 -870 2000.476 Weight 92 kg Intake: IV 2395 Ceftazidime/Avibactam 2.5 100 gm In Sodium Chloride 0. 9% 100 ml @ 50 mls/hr IVPB Q8H [facility] Rx#: [id number] KVO 40 Mvi, Adult No.4 with Vit 255 K 10 ml Trace (Conc-1Ml/ Dose) 1 ml Potassium Chloride 40 meq In Amino Acid 5%-D20w+Lytes*E* 1, 000 ml @ 50 mls/hr IV . [id number] [facility] Rx#:[id number] Sodium Chloride 0.9% 1, 2000 000 ml @ 999 mls/hr IV Q65M [facility] Rx#:[id number] Intake, IV Titration 1029 55.476 Amount Mvi, Adult No.4 with Vit 1029 K 10 ml Trace (Conc-1Ml/ Dose) 1 ml Sodium Chloride 4Meq/ml Vial 48 meq Potassium Chloride 26 meq Calcium Gluconate 1 gm Magnesium Sulfate gm 1 gm Sodium Phosphate 18 mmol In Amino Acids 5 %/ Dextrose 20 % 1,000 ml @ 85 mls/hr IV .BY DURATION [facility] Rx#:[id number] propofoL 1,000 mg In 55.476 Empty Bag 1 bag @ 15 MCG/ KG/MIN 8.28 mls/hr IV . Q12H5M [facility] Rx#:[id number] Oral 1080 Output: Urine 1575 1250 450 Stool 700 Other: Voiding Method Indwelling Catheter Indwelling Catheter Indwelling Catheter ABP, PAP, CO, CI - Last Documented Arterial Blood Pressure 83/36 - Exam GENERAL DESCRIPTION: Middle-age male intubated with a trach RESPIRATORY SYSTEM: Unlabored breathing , coarse breath sounds bilaterally HEART: S1 S2 regular rate and rhythm , ABDOMEN: Soft , no tenderness EXTREMITIES: Swelling to the leg no redness - Labs CBC & Chem 7: 07/04/24 12:02 07/04/24 10:40 Labs: Abnormal Lab Results - Last 24 Hours (Table) 07/03/24 07/03/24 07/04/24 Range/Units 07:32 16:39 00:29 RBC (4.40-5.60) 10*6/uL Hgb (13.0-17.0) g/dL Hct (39.6-50.0) % MCH (27.0-32.0) pg MCHC (32.0-37.0) g/dL ABG pCO2 (35-45) mmHg ABG pO2 (83-108) mmHg ABG HCO3 (21-25) mmol/L ABG Total CO2 (19-24) mmol/L ABG O2 Saturation (94-97) % Hemoglobin (13.0-17.5) gm/dL Potassium (3.5-5.1) mmol/L Carbon Dioxide 34 H (22-30) mmol/L Creatinine 0.31 L (0.66-1.25) mg/dL BUN/Creatinine Ratio 40.67 H (12.00-20.00) Ratio Glucose 177 H (74-99) mg/dL POC Glucose (mg/dL) 189 H 183 H (70-110) mg/dL Triglycerides 173.00 H (0.00-149.00) mg/dL Crossmatch 07/04/24 07/04/24 07/04/24 Range/Units 04:35 05:38 06:19 RBC (4.40-5.60) 10*6/uL Hgb (13.0-17.0) g/dL Hct (39.6-50.0) % MCH (27.0-32.0) pg MCHC (32.0-37.0) g/dL ABG pCO2 (35-45) mmHg ABG pO2 (83-108) mmHg ABG HCO3 (21-25) mmol/L ABG Total CO2 (19-24) mmol/L ABG O2 Saturation (94-97) % Hemoglobin (13.0-17.5) gm/dL Potassium (3.5-5.1) mmol/L Carbon Dioxide (22-30) mmol/L Creatinine (0.66-1.25) mg/dL BUN/Creatinine Ratio (12.00-20.00) Ratio Glucose (74-99) mg/dL POC Glucose (mg/dL) 213 H 227 H 235 H (70-110) mg/dL Triglycerides (0.00-149.00) mg/dL Crossmatch 07/04/24 07/04/24 07/04/24 Range/Units 06:22 09:36 10:40 RBC 2.77 L (4.40-5.60) 10*6/uL Hgb 6.9 L* D (13.0-17.0) g/dL Hct 24.6 L (39.6-50.0) % MCH 24.9 L (27.0-32.0) pg MCHC 28.0 L (32.0-37.0) g/dL ABG pCO2 63 H (35-45) mmHg ABG pO2 168 H (83-108) mmHg ABG HCO3 35 H (21-25) mmol/L ABG Total CO2 36 H (19-24) mmol/L ABG O2 Saturation >100.0 H (94-97) % Hemoglobin 7.6 L (13.0-17.5) gm/dL Potassium 5.5 H (3.5-5.1) mmol/L Carbon Dioxide 32 H (22-30) mmol/L Creatinine 0.31 L (0.66-1.25) mg/dL BUN/Creatinine Ratio (12.00-20.00) Ratio Glucose 229 H (74-99) mg/dL POC Glucose (mg/dL) (70-110) mg/dL Triglycerides (0.00-149.00) mg/dL Crossmatch 07/04/24 07/04/24 07/04/24 Range/Units 11:27 12:02 12:29 RBC 2.70 L (4.40-5.60) 10*6/uL Hgb 6.8 L* (13.0-17.0) g/dL Hct 24.0 L (39.6-50.0) % MCH 25.2 L (27.0-32.0) pg MCHC 28.3 L (32.0-37.0) g/dL ABG pCO2 (35-45) mmHg ABG pO2 (83-108) mmHg ABG HCO3 (21-25) mmol/L ABG Total CO2 (19-24) mmol/L ABG O2 Saturation (94-97) % Hemoglobin (13.0-17.5) gm/dL Potassium (3.5-5.1) mmol/L Carbon Dioxide (22-30) mmol/L Creatinine (0.66-1.25) mg/dL BUN/Creatinine Ratio (12.00-20.00) Ratio Glucose (74-99) mg/dL POC Glucose (mg/dL) 168 H (70-110) mg/dL Triglycerides (0.00-149.00) mg/dL Crossmatch See Detail Assessment and Plan (1) Abnormal chest x-ray Current Visit: Yes Status: Acute Code(s): R93.89 - ABNORMAL FINDINGS ON DX IMAGING OF OTH BODY STRUCTURES SNOMED Code(s): 048163789 (2) Penicillin allergy Current Visit: Yes Status: Acute Code(s): Z88.0 - ALLERGY STATUS TO PENICILLIN SNOMED Code(s): 11134254 (3) Pneumonia Current Visit: No Status: Acute Code(s): J18.9 - PNEUMONIA, UNSPECIFIED ORGANISM SNOMED Code(s): 667873192 (4) Sepsis Current Visit: No Status: Acute Code(s): A41.9 - SEPSIS, UNSPECIFIED ORGANISM SNOMED Code(s): 23974864 Plan: 1patient did have worsening of his respiratory status requiring intubation and transferred to ICU also spiked a fever And did have a heart rate in the 90s medically ready for SIRS/sepsis source likely left lower lobe pneumonia concerning for possible gram-negative in this patient who did have Zosyn allergies that would limit the number of antibiotics safe to use. 2patient is status post bronchoscopy lavage as well as sputum culture which is currently growing multidrug-resistant Pseudomonas aeruginosa resistant to meropenem sensitive to Zosyn however the patient is allergic to Zosyn 3patient did have new fever also worsening respiratory status requiring intubation and transferred to ICU we will repeat his sputum and blood culture for now continue with the vancomycin and Avycaz Mother at the bedside question answered Dictation was produced using [employer] dictation software. please excuse any grammatical, word or spelling errors. Time with Patient: Less than 30
[2024-07-04] MEDS: CEFTAZIDIME/AVIBACTAM 2.5 GM in SODIUM CHLORIDE 0.9% 100 ML IVPB SCH (17:26)
[2024-07-04 18:44] LABS: Glucose,Whole Blood 174 mg/dL (70-110)
[2024-07-04 22:40] LABS: HCT 28.6 % (39.6-50.0); MCH 26.2 pg (27.0-32.0); MCHC 30.1 g/dL (32.0-37.0); MCV 87.2 fL (80.0-97.0); Mean Platelet Volume 12.5 fL (9.5-12.2); Platelet Count 244 10*3/uL (140-440); RBC 3.28 10*6/uL (4.40-5.60); RDW 15.9 % (11.5-14.5); WBC 6.75 10*3/uL (4.50-10.00)
[2024-07-04 22:50] LABS: HGB 8.6 g/dL (13.0-17.0)
[2024-07-04 23:48] LABS: Glucose,Whole Blood 145 mg/dL (70-110)
[2024-07-05 05:08] LABS: African American GFR (CKD) >90 (>60 ml/min/1.73 sqM); Anion Gap 2 mmol/L; Blood Urea Nitrogen 18 mg/dL (9-20); Calcium 8.5 mg/dL (8.4-10.2); Carbon Dioxide 30 mmol/L (22-30); Chloride 105 mmol/L (98-107); Glucose 143 mg/dL (74-99); Magnesium 1.8 mg/dL (1.6-2.3); Non-African American GFR(CKD) >90 (>60 ml/min/1.73 sqM); Phosphorus 1.8 mg/dL (2.5-4.5); Potassium 3.8 mmol/L (3.5-5.1); Sodium 137 mmol/L (137-145)
[2024-07-05 05:32] LABS: ABG Base Excess 5.3 mmol/L; ABG HCO3 30 mmol/L (21-25); ABG Oxygen Saturation 99.8 % (94-97); ABG PCO2 45 mmHg (35-45); ABG PH 7.43 (7.35-7.45); ABG PO2 137 mmHg (83-108); ABG TCO2 32 mmol/L (19-24)
[2024-07-05 05:34] LABS: Allen Test Performed? No
[2024-07-05 05:46] LABS: Glucose,Whole Blood 148 mg/dL (70-110)
[2024-07-05] MEDS: POTASSIUM CHLORIDE 20 MEQ in WATER FOR INJECTION 1 100ML.BAG IVPB ONE (06:56)
--- NOTE | 2024-07-05 06:59 | XR ---
EXAMINATION TYPE: XR chest 1V portable DATE OF EXAM: 07/05/2024 COMPARISON: 07/04/2024 CLINICAL INDICATION: Male, 49 years old with history of mechanically ventilated; TECHNIQUE: Single frontal view of the chest is obtained. FINDINGS: The ET tube is 4.6 cm above the avery. Central venous catheter tip is in the SVC/RA junction unchang ed in position. There is small opacity obscuring left hemidiaphragm and costophrenic angle likely combination of mild atelectasis in the right lung is clear. There is no pneumothorax. Heart size is normal. There is dec reased pulmonary vascular congestion and interstitial edema. IMPRESSION: 1. ET tube 4.6 cm above the avery. 2. Decreasing pulmonary vascular congestion and interstitial edema. 3.persistence mild left lower lobe atelectasis and small effusion. [facility], , 07/05/2024 6:56 AM
--- NOTE | 2024-07-05 07:06 | P.PN ---
Progress Note - Text Progress Note Date: 07/05/24 Patient seen and examined. No acute events overnight. Patient received 2 units PRBCs yesterday and responded appropriately. There is no evidence of bloody bowel movements and stool in colostomy bag appears normal. VSS General-NAD CVS-RRR Lungs-NLB Abdomen-soft, NTND, brown stool in colostomy bag 49 year old male evaluated for Anemia, ? GIB -Patient currently not having any evidence of GIB -Patient responded appropriately to 2 units PRBCs -Continue to monitor Hemoglobin -No plans for Endoscopy at this time. -ICU care George Montiel DO [facility] [phone]
[2024-07-05] MEDS ORDERED: 1: MVI, ADULT NO.4 WITH VIT K 10 ML, TRACE (CONC-1ML/DOSE) 1 ML, SODIUM CHLORIDE 4MEQ/ML IV SCH (07:30)
[2024-07-05 07:39] LABS: Basophils # (A) 0.02 10*3/uL (0.00-0.10); Basophils % (A) 0.3 %; Eosinophils # (A) 0.14 10*3/uL (0.04-0.35); Eosinophils % (A) 2.3 %; HCT 27.7 % (39.6-50.0); HGB 8.3 g/dL (13.0-17.0); Lymphocytes # (A) 1.46 10*3/uL (0.90-5.00); Lymphocytes % (A) 24.2 %; MCV 86.8 fL (80.0-97.0); Mean Platelet Volume 11.9 fL (9.5-12.2); Monocytes # (A) 0.51 10*3/uL (0.20-1.00); Monocytes % (A) 8.5 %; Neutrophils # (A) 3.89 10*3/uL (1.80-7.70); Neutrophils % (A) 64.5 %; Platelet Count 229 10*3/uL (140-440); RBC 3.19 10*6/uL (4.40-5.60); RDW 15.9 % (11.5-14.5); WBC 6.03 10*3/uL (4.50-10.00)
[2024-07-05] MEDS: NOREPINEPHRINE 8 MG in SODIUM CHLORIDE 0.9% 250 ML IV SCH (07:55)
[2024-07-05] MEDS: SODIUM PHOSPHATE 30 MMOL in DEXTROSE 5% IN WATER 250 ML IVPB ONE (08:50)
--- NOTE | 2024-07-05 08:59 | P.PN ---
Subjective Progress Note Date: 07/05/24 06/29/2024: Patient seen and examined at the bedside. Patient remains on trach collar with the settings of FiO2 28% on 5 L. He has been off mechanical ventilation since 06/26/2024. He is tolerating clear liquid diet. Continues to be on TPN at 50 cc/h. Chest x-ray from yesterday showed improvement in left lower lobe pneumonia. Patient had a bronchial wash on 06/22/2024 was positive for Pseudomonas aeruginosa. Patient is currently on IV Avycaz. Urine output is good. Ileostomy is functioning well. Labs show WBC 5.0, hemoglobin 7.6, sodium 135, potassium 3.9, chloride 98, bicarb 34, BUN 9, creatinine 0.37, glucose 105, magnesium 1.8. Patient may be able to downgraded to 3 S today pending bed av ailability. Progress note dated June 30, 2024. The patient is seen today in room 368. Yesterday, the patient was in the intensive care unit. The patient is on a trach collar 28%. He is getting TPN at 83 cc an hour. The patient appears relatively stable, without any distress. Current labs include a sodium 133, potassium 4.2, chloride 96, CO2 36, BUN 13, creatinine 0.37. Glucose is 138. Calcium 8.9. Albumin is 3. BAL sampling was positive for Pseudomonas aeruginosa. Sputum, was also positive for Pseudomonas, on June 21. No chest x-ray today. Progress note dated July 01, 2024. 49-year-old male seen today in room 368. Currently, the patient is on trach collar at 40%. He is getting TPN at 85 cc an hour. Apparently the patient was a bit lethargic last night, and our nurse practitioner ordered a blood gas showing a PO2 of 77, pCO2 of 76, and a pH of 7.27. I believe that was when he was on a 28% trach collar. Anyway, the patient was seen again by the nurse practitioner a bit later, and was much more awake and alert. On the initial evaluation, the patient was a bit lethargic and sleepy. Repeat blood gas was ordered, but was not able to be performed, as respiratory therapy was not able to get the blood gas. Currently, he seems to be doing relatively well. Current labs include 4.1, chlorides 99, CO2 30, BUN 14, and creatinine is 0.30. Glucose is 159. Chest x-ray reveals bibasilar opacities, and a left-sided pleural effusion. Progress note dated July 02, 2024. 49-year-old male seen today in room 368. The patient continues on trach collar 35%. He is getting TPN at 85 cc an hour. He is much more awake and alert today. Respiratory therapy mentioned that they were able to suction the mucous plugs from his tracheostomy tube, which improved his oxygenation, and allowed his FiO2 to be reduced from 40%, to 35%. Prior to that, the patient was on 28% trach collar. Current laboratory data includes a sodium 137, potassium 4.4, chlorides 100, CO2 35, BUN 15, creatinine 0.31. Glucose is 173. Calcium 9.3, phosphorus 2.4. Chest x-ray from yesterday is stable. Please see my notes above. The patient is seen today July 03, 2024 in follow-up on the regular medical floor. He is currently resting in bed. Awake and alert in no acute distress. Currently on trach collar at 40% FiO2. Count 6.2. Hemoglobin 8.9. Platelets 239. Sodium 137. Potassium 4.1. Bicarb 34. BUN 14. Creatinine 0.34. Glucose 177. He is very nourished with TPN at 85 mL/h. Lipids every 72 hours. Continued on DuoNeb and elations, Pulmicort and performance inhalations. Continued on Avycaz and vancomycin. Anticoagulated with Lovenox 90 mg SQ every 12 hours. The patient is seen today July 04, 2024 in follow-up in the intensive care unit. Earlier this morning he was found minimally responsive and hypoxemic on the regular medical floor and was transferred back into the intensive care unit and placed back on the mechanical ventilator. Currently on assist-control mode at a rate of 20, tidal volume 450, FiO2 100% and a PEEP of 5. Morning blood gases revealed a PaO2 of 168, pCO2 of 63 and a pH of 7.34. He is sedated on propofol at 20 mcg/kg/min. Normal saline at 10 mL/h. Receiving TPN at 85 mL/h. He remains on DuoNeb inhalations, Pulmicort and Perforomist inhalations, anticoagulated with Lovenox. Antibiotics in the form of vancomycin and Avycaz. Sodium 138. Potassium 5.5. Bicarb 32. BUN 17. Creatinine 0.31. Glucose 229. The patient is seen today July 05, 2024 in follow-up in the intensive care unit. He remains on the mechanical ventilator currently on assist-control mode at a rate of 20, tidal volume 450, FiO2 50% and a PEEP of 5. Morning blood gases revealed a PaO2 of 137, NBG674 and a pH of 7.43. He is sedated on propofol at 15 mcg/kg/min. Normal saline at 10 mL/h. TPN at 85 mL/h. He is a awake and alert. White count 6.0. Hemoglobin 8.3. Platelets 229. Sodium 137. Potassium 3.8. Bicarb 30. BUN 18. Creatinine 0.34. Glucose 143. He remains on DuoNeb inhalations, Pulmicort and Perforomist inhalations. Need on v ancomycin and Avycaz lipids every 72 hours. Lovenox for anticoagulation. Objective - Vital Signs Vital signs: Vital Signs Temp 98.8 F 07/05/24 04:00 Pulse 94 07/05/24 08:51 Resp 21 07/05/24 07:00 BP 108/64 07/05/24 07:00 Pulse Ox 100 07/05/24 07:00 FiO2 40 07/05/24 08:23 Intake & Output 07/04/24 07/05/24 07/05/24 18:59 06:59 18:59 Intake Total 4456.476 1545 95 Output Total 690 1830 60 Balance 3766.476 -285 35 Weight 93.4 kg Intake: IV 3036 200 10 Ceftazidime/Avibactam 2.5 200 gm In Sodium Chloride 0. 9% 100 ml @ 50 mls/hr IVPB Q8H [facility] Rx#: [id number] Ceftazidime/Avibactam 2.5 100 gm In Sodium Chloride 0. 9% 100 ml @ 50 mls/hr IVPB Q8H [facility] Rx#: [id number] KVO 80 100 10 Mvi, Adult No.4 with Vit 255 K 10 ml Trace (Conc-1Ml/ Dose) 1 ml Potassium Chloride 40 meq In Amino Acid 5%-D20w+Lytes*E* 1, 000 ml @ 50 mls/hr IV . [id number] [facility] Rx#:[id number] Sodium Chloride 0.9% 1, 2000 000 ml @ 999 mls/hr IV Q65M [facility] Rx#:[id number] Vancomycin 1,750 mg In 501 Sodium Chloride 0.9% 500 ml 500 ml @ 167 mls/hr IVPB Q24H [facility] Rx#: [id number] Intake, IV Titration 1110.476 100 Amount Mvi, Adult No.4 with Vit 1055 K 10 ml Trace (Conc-1Ml/ Dose) 1 ml Sodium Chloride 4Meq/ml Vial 48 meq Potassium Chloride 26 meq Calcium Gluconate 1 gm Magnesium Sulfate gm 1 gm Sodium Phosphate 21 mmol In Amino Acids 5 %/ Dextrose 20 % 1,000 ml @ 85 mls/hr IV .BY DURATION [facility] Rx#:[id number] propofoL 1,000 mg In 55.476 100 Empty Bag 1 bag @ 15 MCG/ KG/MIN 8.28 mls/hr IV . Q12H5M [facility] Rx#:[id number] TPN/PPN 935 85 Mvi, Adult No.4 with Vit 85 K 10 ml Trace (Conc-1Ml/ Dose) 1 ml Sodium Chloride 4Meq/ml Vial 48 meq Potassium Chloride 26 meq Calcium Gluconate 1 gm Magnesium Sulfate gm 1 gm Sodium Phosphate 21 mmol In Amino Acids 5 %/ Dextrose 20 % 1,000 ml @ 85 mls/hr IV .BY DURATION [facility] Rx#:[id number] Sodium Chloride 4Meq/ml 850 85 Vial 48 meq Potassium Chloride 26 meq Calcium Gluconate 1 gm Magnesium Sulfate gm 1 gm Sodium Phosphate 21 mmol In Amino Acids 5 %/Dextrose 20 % 1,000 ml @ 85 mls/hr IV .BY DURATION [facility] Rx#: [id number] Blood Product 310 310 As-1 Unit 0 310 [id number] Rc As-1 Unit 310 [id number] Output: Urine 690 730 60 Stool 1100 Other: Voiding Method Indwelling Catheter Indwelling Catheter ABP, PAP, CO, CI - Last Documented Arterial Blood Pressure 81/49 - Exam GENERAL EXAM: Awake, alert 49-year-old male patient, on the mechanical ventilator, in no apparent distress. HEAD: Normocephalic. EYES: Normal reaction of pupils, equal size. NOSE: Clear with pink turbinates. THROAT: Tracheostomy tube secured in place. No erythema or exudates. NECK: No masses, no JVD. CHEST: No chest wall deformity. LUNGS: Equal air entry with coarse rhonchi bilaterally. CVS: S1 and S2 normal with no audible murmur, regular rhythm. ABDOMEN: Enterocutaneous fistula over the abdominal wall. No hepatosplenomegaly, normal bowel sounds. SPINE: No scoliosis or deformity SKIN: No rashes CENTRAL NERVOUS SYSTEM: No focal deficits, tone is normal in all 4 extremities. EXTREMITIES: Extensive muscle atrophy. Contractures. There is no peripheral edema. No clubbing, no cyanosis. Peripheral pulses are intact. - Labs CBC & Chem 7: 07/05/24 04:50 07/05/24 04:50 Labs: Abnormal Lab Results - Last 24 Hours (Table) 07/04/24 07/04/24 07/04/24 Range/Units 09:36 10:40 11:27 RBC 2.77 L (4.40-5.60) 10*6/uL Hgb 6.9 L* D (13.0-17.0) g/dL Hct 24.6 L (39.6-50.0) % MCH 24.9 L (27.0-32.0) pg MCHC 28.0 L (32.0-37.0) g/dL MPV (9.5-12.2) fL ABG pCO2 63 H (35-45) mmHg ABG pO2 168 H (83-108) mmHg ABG HCO3 35 H (21-25) mmol/L ABG Total CO2 36 H (19-24) mmol/L ABG O2 Saturation >100.0 H (94-97) % Hemoglobin 7.6 L (13.0-17.5) gm/dL Creatinine (0.66-1.25) mg/dL Glucose (74-99) mg/dL POC Glucose (mg/dL) 168 H (70-110) mg/dL Phosphorus (2.5-4.5) mg/dL Crossmatch 07/04/24 07/04/24 07/04/24 Range/Units 12:02 12:29 18:42 RBC 2.70 L (4.40-5.60) 10*6/uL Hgb 6.8 L* (13.0-17.0) g/dL Hct 24.0 L (39.6-50.0) % MCH 25.2 L (27.0-32.0) pg MCHC 28.3 L (32.0-37.0) g/dL MPV (9.5-12.2) fL ABG pCO2 (35-45) mmHg ABG pO2 (83-108) mmHg ABG HCO3 (21-25) mmol/L ABG Total CO2 (19-24) mmol/L ABG O2 Saturation (94-97) % Hemoglobin (13.0-17.5) gm/dL Creatinine (0.66-1.25) mg/dL Glucose (74-99) mg/dL POC Glucose (mg/dL) 174 H (70-110) mg/dL Phosphorus (2.5-4.5) mg/dL Crossmatch See Detail 07/04/24 07/04/24 07/05/24 Range/Units 22:35 23:47 04:50 RBC 3.28 L (4.40-5.60) 10*6/uL Hgb 8.6 L D (13.0-17.0) g/dL Hct 28.6 L (39.6-50.0) % MCH 26.2 L (27.0-32.0) pg MCHC 30.1 L (32.0-37.0) g/dL MPV 12.5 H (9.5-12.2) fL ABG pCO2 (35-45) mmHg ABG pO2 (83-108) mmHg ABG HCO3 (21-25) mmol/L ABG Total CO2 (19-24) mmol/L ABG O2 Saturation (94-97) % Hemoglobin (13.0-17.5) gm/dL Creatinine 0.34 L (0.66-1.25) mg/dL Glucose 143 H (74-99) mg/dL POC Glucose (mg/dL) 145 H (70-110) mg/dL Phosphorus 1.8 L (2.5-4.5) mg/dL Crossmatch 07/05/24 07/05/24 07/05/24 Range/Units 04:50 05:28 05:45 RBC 3.19 L (4.40-5.60) 10*6/uL Hgb 8.3 L (13.0-17.0) g/dL Hct 27.7 L (39.6-50.0) % MCH 26.0 L (27.0-32.0) pg MCHC 30.0 L (32.0-37.0) g/dL MPV (9.5-12.2) fL ABG pCO2 (35-45) mmHg ABG pO2 137 H (83-108) mmHg ABG HCO3 30 H (21-25) mmol/L ABG Total CO2 32 H (19-24) mmol/L ABG O2 Saturation 99.8 H (94-97) % Hemoglobin 8.8 L (13.0-17.5) gm/dL Creatinine (0.66-1.25) mg/dL Glucose (74-99) mg/dL POC Glucose (mg/dL) 148 H (70-110) mg/dL Phosphorus (2.5-4.5) mg/dL Crossmatch Assessment and Plan Assessment: Acute on chronic hypoxemic and hypercapnic respiratory failure, multifactorial. Transferred back into the intensive care unit 07/04/2024 and placed back on the mechanical ventilator Acute left lower lobe pneumonia. Reviewed bronchoscopy 06/22/2024 with cultures positive for Pseudomonas aeruginosa and corynebacterium striatum. Repeat bronchoscopy with BAL 07/04/2024. Cultures pending Hypotension, currently receiving fluid resuscitation Tracheal stenosis History of recurrent ventilator dependent respiratory failure, secondary to pneumonia and mucous plugging History of sepsis, secondary to pneumonia. Crohn's disease, with previous bowel perforation, status post colectomy and diverting ileostomy. Tracheobronchomalacia History of DVT History of CVA/TIA Right below the knee amputation History of asystole/cardiac arrest, 2021 Plan: The patient was seen and evaluated Chest x-ray, ABGs, labs and medications reviewed Continue on Avycaz and vancomycin Remains on TPN and lipids Anticoagulated with Lovenox Continue DuoNeb inhalations Continue Pulmicort and Perforomist inhalations Protonix for GI prophylaxis Wean down propofol We will trial on pressure support of 8 and CPAP today I have personally seen and examined the patient, performed the documentation and the assessment and plan as written. Number of minutes spent on the visit: 15 Dictation was produced using [employer] dictation software. Please excuse any grammatical, word or spelling errors.
[2024-07-05] MEDS: 1: MVI, ADULT NO.4 WITH VIT K 10 ML, TRACE (CONC-1ML/DOSE) 1 ML, SODIUM CHLORIDE 4MEQ/ML IV SCH (10:29)
[2024-07-05 13:10] LABS: Glucose,Whole Blood 129 mg/dL (70-110)
--- NOTE | 2024-07-05 14:04 | P.PN ---
Subjective Progress Note Date: 07/05/24 Patient admitted for bilateral cramping due to pneumonia gram-negative organism is not identified yet patient had Pseudomonas in the past patient underwent bronchoscopy patient remains on mechanical ventilation broad-spectrum antibiotics patient has a tracheostomy in place. Patient underwent bronchoalveolar lavage. 06/26/2024 Patient is evaluated in the ICU. Remains on the mechanical ventilator with FiO2 of 40%. Sputum culture reveals pseudomonas aeruginosa, corynebacterium striatum group. He remains on antibiotics with IV ceftazidime/Avibactam. TPN infusing. Labs today reveal white blood cell count 4.72, hgb 7.6, sodium 135, potassium 4.0, BUN 13, creatinine 0.39. Magnesium 1.9. Triglycerides of 183.00. 06/27/2024 Patient is evaluated in the intensive care unit. He is currently on the trach collar. Awake alert and oriented. Chest xray today shows left lower lobe atelectasis or pneumonia. Per mother at the bedside he was only home from the [facility] for one day prior to returning to the hospital. He will likely need to return to [facility] on DC. Remains on TPN. White blood cell count 5.07, hgb 7.3, sodium 134, BUN 11, creatinine 0.34. 06/28/2024 Patient is eval today in intensive care unit. He is complaining of pain in the right ear manual examination does reveal some erythema of the canal and eardrum. We will add eardrops and monitor for improvement in symptoms. Patient is awake alert oriented he has tolerated trach collar. Chest x-ray today reveals a developing left lower lobe infiltrate with a small effusion which may be present. He continues on IV meropenem for positive sputum and bronchial washings of Pseudomonas aeruginosa and corynebacterium striatum group. Labs today reveal a white blood cell count of 5.55, hemoglobin 7.4, sodium 135, BUN of 11 creatinine 0.40. 06/29/2024 Patient is evaluated in the intensive care unit he is currently downgraded and pending a bed on the medical floor. Patient is ready for discharge and did discuss with the patient that he needs to follow-up with his family and I will also talk with his family regarding discharge planning if he is able to discharge home versus subacute rehab versus LTAC. Patient is adamant that that he will not [facility]. Due to his complex medical needs including PEG tube, TPN, his tracheostomy, ileostomy, and IV antibiotics he may not be a candidate for subacute rehabilitation but referrals were placed by social work. He does state that his right ear feels better after being initiated on antibiotic eardrops and they will be continued at this time. His labs today reveal a white blood cell count of 5.50, hemoglobin 7.6, sodium level of 135, BUN of 9 creatinine 0.37 and magnesium level of 1.8. 06/30/2024 Patient is evaluated in follow-up in the medical floor. He has no acute complaints at this time. He does report again mild improvement in his right ear pain and he continues with the eardrops. Had a long discussion with patient's son over and over the phone regarding discharge planning. Alan is apprehensive about allowing child to return home due to his complex medical needs and somebody having to stay up with him overnight for suctioning and trach care. Open would like him to return to the [facility] for at least another month or so until his other brother comes home from college. Will need to follow-up with patient tomorrow regarding this and awaiting other referrals for any other excepting facility as patient really does not want to return to the [facility]. 07/01/2024 Patient evaluated today resting in bed. Per nursing he was lethargic overnight but seems improved today. Patient is currently a bed at a subacute rehab [facility] and social work following. He remains on IV ceftazidime/avibactam. Chest x-ray today Reveals stable chest with left-sided pleural effusion. There is opacification of the right lung base and left lung base. Patient is on TPN. Patient is afebrile, heart rate 53, blood pressure 144/67, 100% on trach collar. 07/02/2024 Patient evaluated today in follow up. No acute complaints at this time. Still pending accepting rehab facility. Remains on the IV ceftazidime/avibactam. 07/03/2024 Patient evaluated today in follow up was downgraded to the general medical floor. Report the right ear pain and fullness is better. He continues on IV ceftazidime/Avibactam and IV vancomycin for the pseudomonas in the sputum. No accepting facility so far. He may need to remain hospitalized while he finishes course of antibiotics. He is tolerating the trach collar. 07/04. Patient seen and examined. Patient was a teamed this morning for decrease responsiveness, was found to be hypoxemic, was transferred back to ICU and was placed on ventilator. Patient is currently on breathing treatments. Hemoglobin this morning was 6.8, 1 unit of packed red blood cells ordered. Patient has been started on Levophed 07/05. Patient seen and examined. Patient is currently off sedation, opening eyes. Patient received 2 units of packed red blood cells in total since yesterday, hemoglobin improved to8.3, WBC 6.03, platelet count 229, sodium 137, potassium 3.8, BUN 18, creatinine 0.34, glucose 143, phosphorus 1.8. Critical care planning to trial CPAP REVIEW OF SYSTEMS: Review of system cannot be obtained as patient is currently intubated PHYSICAL EXAMINATION: GENERAL: The patient is intubated HEENT: Pupils are round and equally reacting to light. Trach collar seen CARDIOVASCULAR: S1 and S2 present. No murmurs, rubs, or gallops. PULMONARY: Diminished breath sounds at the bases, no wheezing or crackles. ABDOMEN: Soft, nontender, nondistended, normoactive bowel sounds. Ostomy seen MUSCULOSKELETAL: No joint swelling or deformity. EXTREMITIES: No cyanosis, clubbing, or pedal edema. NEUROLOGICAL: Gross neurological examination did not reveal any focal deficits. SKIN: No rashes. Assessment and plan Bilateral gram-negative pneumonia possibility of aspiration - Acute respiratory failure requiring mechanical ventilation ,bronchoscopy 06/22/2024 with cultures positive for Pseudomonas aeruginosa and corynebacterium striatum. Repeat bronchoscopy with BAL 07/04/2024 - Crohn's disease with ileostomy in the past patient is presently on TPN - Right sided otitis media - Tracheobronchomalacia - CVA TIA - History of DVT Monitor vital signs Monitor CBC Monitor CMP Continue telemetry monitoring Continue vent management bronchoscopy 06/22/2024 with cultures positive for Pseudomonas aeruginosa and corynebacterium striatum. Repeat bronchoscopy with BAL 07/04/2024 Status post 2 unit of packed red blood cell Continue Lovenox Continue on Avycaz and vancomycin Remains on TPN and lipids Continue DuoNeb inhalations Pulmonology following ID following Labs and medication were reviewed.. Continue same treatment. Continue with symptomatic treatment. Resume home medication. Monitor labs and vitals. DVT and GI prophylaxis. Further recommendations as per clinical course of the patient Dictation was produced using [employer] dictation software. please excuse any gram matical, word or spelling errors. Objective - Vital Signs Vital signs: Vital Signs Temp 98.0 F 07/05/24 12:00 Pulse 90 07/05/24 13:30 Resp 30 H 07/05/24 13:30 BP 119/60 07/05/24 13:30 Pulse Ox 98 07/05/24 13:30 FiO2 40 07/05/24 12:23 Intake & Output 07/04/24 07/05/24 07/05/24 18:59 06:59 18:59 Intake Total 4456.476 1545 974.732 Output Total 690 1830 535 Balance 3766.476 -285 439.732 Weight 93.4 kg Intake: IV 3036 200 805 Ceftazidime/Avibactam 2.5 200 gm In Sodium Chloride 0. 9% 100 ml @ 50 mls/hr IVPB Q8H [facility] Rx#: [id number] Ceftazidime/Avibactam 2.5 100 gm In Sodium Chloride 0. 9% 100 ml @ 50 mls/hr IVPB Q8H [facility] Rx#: [id number] KVO 80 100 100 Mvi, Adult No.4 with Vit 255 K 10 ml Trace (Conc-1Ml/ Dose) 1 ml Potassium Chloride 40 meq In Amino Acid 5%-D20w+Lytes*E* 1, 000 ml @ 50 mls/hr IV . [id number] [facility] Rx#:[id number] Sodium Chloride 0.9% 1, 2000 000 ml @ 999 mls/hr IV Q65M [facility] Rx#:[id number] Sodium Chloride 4Meq/ml 510 Vial 48 meq Potassium Chloride 26 meq Calcium Gluconate 1 gm Magnesium Sulfate gm 1 gm Sodium Phosphate 21 mmol In Amino Acids 5 %/Dextrose 20 % 1,000 ml @ 85 mls/hr IV .BY DURATION [facility] Rx#: [id number] Sodium Phosphate 30 mmol 195 In Dextrose 5% in Water 250 ml @ 65 mls/hr IVPB ONCE ONE Rx#:[id number] Vancomycin 1,750 mg In 501 Sodium Chloride 0.9% 500 ml 500 ml @ 167 mls/hr IVPB Q24H [facility] Rx#: [id number] Intake, IV Titration 1110.476 100 84.732 Amount Mvi, Adult No.4 with Vit 1055 K 10 ml Trace (Conc-1Ml/ Dose) 1 ml Sodium Chloride 4Meq/ml Vial 48 meq Potassium Chloride 26 meq Calcium Gluconate 1 gm Magnesium Sulfate gm 1 gm Sodium Phosphate 21 mmol In Amino Acids 5 %/ Dextrose 20 % 1,000 ml @ 85 mls/hr IV .BY DURATION [facility] Rx#:[id number] propofoL 1,000 mg In 55.476 100 84.732 Empty Bag 1 bag @ 15 MCG/ KG/MIN 8.28 mls/hr IV . Q12H5M [facility] Rx#:[id number] TPN/PPN 935 85 Mvi, Adult No.4 with Vit 85 K 10 ml Trace (Conc-1Ml/ Dose) 1 ml Sodium Chloride 4Meq/ml Vial 48 meq Potassium Chloride 26 meq Calcium Gluconate 1 gm Magnesium Sulfate gm 1 gm Sodium Phosphate 21 mmol In Amino Acids 5 %/ Dextrose 20 % 1,000 ml @ 85 mls/hr IV .BY DURATION [facility] Rx#:[id number] Sodium Chloride 4Meq/ml 850 85 Vial 48 meq Potassium Chloride 26 meq Calcium Gluconate 1 gm Magnesium Sulfate gm 1 gm Sodium Phosphate 21 mmol In Amino Acids 5 %/Dextrose 20 % 1,000 ml @ 85 mls/hr IV .BY DURATION [facility] Rx#: [id number] Blood Product 310 310 Rc As-1 Unit 0 310 [id number] Rc As-1 Unit 310 [id number] Output: Urine 690 730 535 Stool 1100 Other: Voiding Method Indwelling Catheter Indwelling Catheter Indwelling Catheter ABP, PAP, CO, CI - Last Documented Arterial Blood Pressure 81/49 - Labs CBC & Chem 7: 07/05/24 04:50 07/05/24 04:50 Labs: Abnormal Lab Results - Last 24 Hours (Table) 07/04/24 07/04/24 07/04/24 Range/Units 12:29 18:42 22:35 RBC 3.28 L (4.40-5.60) 10*6/uL Hgb 8.6 L D (13.0-17.0) g/dL Hct 28.6 L (39.6-50.0) % MCH 26.2 L (27.0-32.0) pg MCHC 30.1 L (32.0-37.0) g/dL MPV 12.5 H (9.5-12.2) fL ABG pO2 (83-108) mmHg ABG HCO3 (21-25) mmol/L ABG Total CO2 (19-24) mmol/L ABG O2 Saturation (94-97) % Hemoglobin (13.0-17.5) gm/dL Creatinine (0.66-1.25) mg/dL Glucose (74-99) mg/dL POC Glucose (mg/dL) 174 H (70-110) mg/dL Phosphorus (2.5-4.5) mg/dL Crossmatch See Detail 07/04/24 07/05/24 07/05/24 Range/Units 23:47 04:50 04:50 RBC 3.19 L (4.40-5.60) 10*6/uL Hgb 8.3 L (13.0-17.0) g/dL Hct 27.7 L (39.6-50.0) % MCH 26.0 L (27.0-32.0) pg MCHC 30.0 L (32.0-37.0) g/dL MPV (9.5-12.2) fL ABG pO2 (83-108) mmHg ABG HCO3 (21-25) mmol/L ABG Total CO2 (19-24) mmol/L ABG O2 Saturation (94-97) % Hemoglobin (13.0-17.5) gm/dL Creatinine 0.34 L (0.66-1.25) mg/dL Glucose 143 H (74-99) mg/dL POC Glucose (mg/dL) 145 H (70-110) mg/dL Phosphorus 1.8 L (2.5-4.5) mg/dL Crossmatch 07/05/24 07/05/24 07/05/24 Range/Units 05:28 05:45 13:09 RBC (4.40-5.60) 10*6/uL Hgb (13.0-17.0) g/dL Hct (39.6-50.0) % MCH (27.0-32.0) pg MCHC (32.0-37.0) g/dL MPV (9.5-12.2) fL ABG pO2 137 H (83-108) mmHg ABG HCO3 30 H (21-25) mmol/L ABG Total CO2 32 H (19-24) mmol/L ABG O2 Saturation 99.8 H (94-97) % Hemoglobin 8.8 L (13.0-17.5) gm/dL Creatinine (0.66-1.25) mg/dL Glucose (74-99) mg/dL POC Glucose (mg/dL) 148 H 129 H (70-110) mg/dL Phosphorus (2.5-4.5) mg/dL Crossmatch
[2024-07-05 14:19] LABS: Appearance,BF Blood Tinged (Clear); RBC, Body Fluid 1256 /UL (0-2000)
--- NOTE | 2024-07-05 14:35 | P.PN ---
Subjective Progress Note Date: 07/05/24 Principal diagnosis: Reason for follow-up abnormal chest x-ray question pneumonia Patient is a 49-year-old male with a past medical history significant for chron's disease in this patient who did have multiple surgeries and complication as far as abdominal surgeries did have history of recurrent pneumonia vent dependent respiratory failure currently on a trach collar CVA TIA patient has been brought into the hospital concerning for chest pain patient also have abnormal chest x-ray concern for possible pneumonia prompting this consultation. On today's evaluation that is 07/05/2024, Patient did have resolution of his fever and is afebrile this morning patient is currently intubated through the trach mention breathing comfortably no chest pain worsening cough or output through the ET. Patient white count 6.03, creatinine 0.3 4 repeat cultures currently pending Objective - Vital Signs Vital signs: Vital Signs Temp 98.0 F 07/05/24 12:00 Pulse 90 07/05/24 13:30 Resp 30 H 07/05/24 13:30 BP 119/60 07/05/24 13:30 Pulse Ox 98 07/05/24 13:30 FiO2 40 07/05/24 12:23 Intake & Output 07/04/24 07/05/24 07/05/24 18:59 06:59 18:59 Intake Total 4456.476 1545 974.732 Output Total 690 1830 535 Balance 3766.476 -285 439.732 Weight 93.4 kg Intake: IV 3036 200 805 Ceftazidime/Avibactam 2.5 200 gm In Sodium Chloride 0. 9% 100 ml @ 50 mls/hr IVPB Q8H [facility] Rx#: [id number] Ceftazidime/Avibactam 2.5 100 gm In Sodium Chloride 0. 9% 100 ml @ 50 mls/hr IVPB Q8H [facility] Rx#: [id number] KVO 80 100 100 Mvi, Adult No.4 with Vit 255 K 10 ml Trace (Conc-1Ml/ Dose) 1 ml Potassium Chloride 40 meq In Amino Acid 5%-D20w+Lytes*E* 1, 000 ml @ 50 mls/hr IV . [id number] [facility] Rx#:[id number] Sodium Chloride 0.9% 1, 2000 000 ml @ 999 mls/hr IV Q65M [facility] Rx#:[id number] Sodium Chloride 4Meq/ml 510 Vial 48 meq Potassium Chloride 26 meq Calcium Gluconate 1 gm Magnesium Sulfate gm 1 gm Sodium Phosphate 21 mmol In Amino Acids 5 %/Dextrose 20 % 1,000 ml @ 85 mls/hr IV .BY DURATION [facility] Rx#: [id number] Sodium Phosphate 30 mmol 195 In Dextrose 5% in Water 250 ml @ 65 mls/hr IVPB ONCE ONE Rx#:[id number] Vancomycin 1,750 mg In 501 Sodium Chloride 0.9% 500 ml 500 ml @ 167 mls/hr IVPB Q24H [facility] Rx#: [id number] Intake, IV Titration 1110.476 100 84.732 Amount Mvi, Adult No.4 with Vit 1055 K 10 ml Trace (Conc-1Ml/ Dose) 1 ml Sodium Chloride 4Meq/ml Vial 48 meq Potassium Chloride 26 meq Calcium Gluconate 1 gm Magnesium Sulfate gm 1 gm Sodium Phosphate 21 mmol In Amino Acids 5 %/ Dextrose 20 % 1,000 ml @ 85 mls/hr IV .BY DURATION [facility] Rx#:[id number] propofoL 1,000 mg In 55.476 100 84.732 Empty Bag 1 bag @ 15 MCG/ KG/MIN 8.28 mls/hr IV . Q12H5M [facility] Rx#:[id number] TPN/PPN 935 85 Mvi, Adult No.4 with Vit 85 K 10 ml Trace (Conc-1Ml/ Dose) 1 ml Sodium Chloride 4Meq/ml Vial 48 meq Potassium Chloride 26 meq Calcium Gluconate 1 gm Magnesium Sulfate gm 1 gm Sodium Phosphate 21 mmol In Amino Acids 5 %/ Dextrose 20 % 1,000 ml @ 85 mls/hr IV .BY DURATION [facility] Rx#:[id number] Sodium Chloride 4Meq/ml 850 85 Vial 48 meq Potassium Chloride 26 meq Calcium Gluconate 1 gm Magnesium Sulfate gm 1 gm Sodium Phosphate 21 mmol In Amino Acids 5 %/Dextrose 20 % 1,000 ml @ 85 mls/hr IV .BY DURATION [facility] Rx#: [id number] Blood Product 310 310 Rc As-1 Unit 0 310 [id number] Rc As-1 Unit 310 [id number] Output: Urine 690 730 535 Stool 1100 Other: Voiding Method Indwelling Catheter Indwelling Catheter Indwelling Catheter ABP, PAP, CO, CI - Last Documented Arterial Blood Pressure 81/49 - Exam GENERAL DESCRIPTION: Middle-age male intubated with a trach RESPIRATORY SYSTEM: Unlabored breathing , coarse breath sounds bilaterally HEART: S1 S2 regular rate and rhythm , ABDOMEN: Soft , no tenderness EXTREMITIES: Swelling to the leg no redness - Labs CBC & Chem 7: 07/05/24 04:50 07/05/24 04:50 Labs: Abnormal Lab Results - Last 24 Hours (Table) 07/04/24 07/04/24 07/04/24 Range/Units 08:45 12:29 18:42 RBC (4.40-5.60) 10*6/uL Hgb (13.0-17.0) g/dL Hct (39.6-50.0) % MCH (27.0-32.0) pg MCHC (32.0-37.0) g/dL MPV (9.5-12.2) fL ABG pO2 (83-108) mmHg ABG HCO3 (21-25) mmol/L ABG Total CO2 (19-24) mmol/L ABG O2 Saturation (94-97) % Hemoglobin (13.0-17.5) gm/dL Creatinine (0.66-1.25) mg/dL Glucose (74-99) mg/dL POC Glucose (mg/dL) 174 H (70-110) mg/dL Phosphorus (2.5-4.5) mg/dL Fluid Appearance Blood Tinged A (Clear) Crossmatch See Detail 07/04/24 07/04/24 07/05/24 Range/Units 22:35 23:47 04:50 RBC 3.28 L (4.40-5.60) 10*6/uL Hgb 8.6 L D (13.0-17.0) g/dL Hct 28.6 L (39.6-50.0) % MCH 26.2 L (27.0-32.0) pg MCHC 30.1 L (32.0-37.0) g/dL MPV 12.5 H (9.5-12.2) fL ABG pO2 (83-108) mmHg ABG HCO3 (21-25) mmol/L ABG Total CO2 (19-24) mmol/L ABG O2 Saturation (94-97) % Hemoglobin (13.0-17.5) gm/dL Creatinine 0.34 L (0.66-1.25) mg/dL Glucose 143 H (74-99) mg/dL POC Glucose (mg/dL) 145 H (70-110) mg/dL Phosphorus 1.8 L (2.5-4.5) mg/dL Fluid Appearance (Clear) Crossmatch 07/05/24 07/05/24 07/05/24 Range/Units 04:50 05:28 05:45 RBC 3.19 L (4.40-5.60) 10*6/uL Hgb 8.3 L (13.0-17.0) g/dL Hct 27.7 L (39.6-50.0) % MCH 26.0 L (27.0-32.0) pg MCHC 30.0 L (32.0-37.0) g/dL MPV (9.5-12.2) fL ABG pO2 137 H (83-108) mmHg ABG HCO3 30 H (21-25) mmol/L ABG Total CO2 32 H (19-24) mmol/L ABG O2 Saturation 99.8 H (94-97) % Hemoglobin 8.8 L (13.0-17.5) gm/dL Creatinine (0.66-1.25) mg/dL Glucose (74-99) mg/dL POC Glucose (mg/dL) 148 H (70-110) mg/dL Phosphorus (2.5-4.5) mg/dL Fluid Appearance (Clear) Crossmatch 07/05/24 Range/Units 13:09 RBC (4.40-5.60) 10*6/uL Hgb (13.0-17.0) g/dL Hct (39.6-50.0) % MCH (27.0-32.0) pg MCHC (32.0-37.0) g/dL MPV (9.5-12.2) fL ABG pO2 (83-108) mmHg ABG HCO3 (21-25) mmol/L ABG Total CO2 (19-24) mmol/L ABG O2 Saturation (94-97) % Hemoglobin (13.0-17.5) gm/dL Creatinine (0.66-1.25) mg/dL Glucose (74-99) mg/dL POC Glucose (mg/dL) 129 H (70-110) mg/dL Phosphorus (2.5-4.5) mg/dL Fluid Appearance (Clear) Crossmatch Assessment and Plan (1) Abnormal chest x-ray Current Visit: Yes Status: Acute Code(s): R93.89 - ABNORMAL FINDINGS ON DX IMAGING OF OTH BODY STRUCTURES SNOMED Code(s): 946704784 (2) Penicillin allergy Current Visit: Yes Status: Acute Code(s): Z88.0 - ALLERGY STATUS TO P ENICILLIN SNOMED Code(s): 18256149 (3) Pneumonia Current Visit: No Status: Acute Code(s): J18.9 - PNEUMONIA, UNSPECIFIED ORGANISM SNOMED Code(s): 428685686 (4) Sepsis Current Visit: No Status: Acute Code(s): A41.9 - SEPSIS, UNSPECIFIED ORGANISM SNOMED Code(s): 22874478 Plan: 1patient did have worsening of his respiratory status requiring intubation and transferred to ICU also spiked a fever And did have a heart rate in the 90s medically ready for SIRS/sepsis source likely left lower lobe pneumonia concerning for possible gram-negative in this patient who did have Zosyn allergies that would limit the number of antibiotics safe to use. 2patient is status post bronchoscopy lavage as well as sputum culture which grew multidrug-resistant Pseudomonas aeruginosa resistant to meropenem sensitive to Zosyn however the patient is allergic to Zosyn 3patient did have new fever also worsening respiratory status requiring intubation and transferred to ICU, blood and sputum culture have been repeated results are currently pending 4patient will be treated with vancomycin pharmacy to dose and Avycaz pending finalization of repeat culture Mother at the bedside question answered Dictation was produced using [employer] dictation software. please excuse any grammatical, word or spelling errors. Time with Patient: Less than 30
[2024-07-05 19:06] LABS: Glucose,Whole Blood 124 mg/dL (70-110)
[2024-07-06 00:10] LABS: Glucose,Whole Blood 122 mg/dL (70-110)
[2024-07-06 04:37] LABS: Basophils # (A) 0.04 10*3/uL (0.00-0.10); Basophils % (A) 0.6 %; Eosinophils # (A) 0.25 10*3/uL (0.04-0.35); Eosinophils % (A) 3.9 %; HGB 8.5 g/dL (13.0-17.0); Lymphocytes # (A) 1.84 10*3/uL (0.90-5.00); Lymphocytes % (A) 28.9 %; MCH 25.1 pg (27.0-32.0); MCHC 29.3 g/dL (32.0-37.0); MCV 85.5 fL (80.0-97.0); Mean Platelet Volume 11.7 fL (9.5-12.2); Monocytes # (A) 0.37 10*3/uL (0.20-1.00); Monocytes % (A) 5.8 %; Neutrophils # (A) 3.85 10*3/uL (1.80-7.70); Neutrophils % (A) 60.6 %; Platelet Count 252 10*3/uL (140-440); RBC 3.39 10*6/uL (4.40-5.60); RDW 16.3 % (11.5-14.5); WBC 6.36 10*3/uL (4.50-10.00)
[2024-07-06 05:05] LABS: African American GFR (CKD) >90 (>60 ml/min/1.73 sqM); Anion Gap 4 mmol/L; Blood Urea Nitrogen 16 mg/dL (9-20); Calcium 8.2 mg/dL (8.4-10.2); Carbon Dioxide 27 mmol/L (22-30); Chloride 104 mmol/L (98-107); Glucose 132 mg/dL (74-99); Magnesium 1.8 mg/dL (1.6-2.3); Non-African American GFR(CKD) >90 (>60 ml/min/1.73 sqM); Phosphorus 2.9 mg/dL (2.5-4.5); Potassium 3.4 mmol/L (3.5-5.1); Sodium 135 mmol/L (137-145)
[2024-07-06 05:22] LABS: ABG Base Excess 3.4 mmol/L; ABG HCO3 28 mmol/L (21-25); ABG Oxygen Saturation 98.5 % (94-97); ABG PCO2 41 mmHg (35-45); ABG PH 7.44 (7.35-7.45); ABG PO2 94 mmHg (83-108); ABG TCO2 29 mmol/L (19-24)
[2024-07-06 05:24] LABS: Allen Test Performed? No
[2024-07-06 06:16] LABS: Glucose,Whole Blood 128 mg/dL (70-110)
[2024-07-06] MEDS ORDERED: Magnesium Replacement Protocol 1 EACH MISC MISCELLANE PRN (06:42)
[2024-07-06] MEDS: POTASSIUM CHLORIDE 20 MEQ in WATER FOR INJECTION 1 100ML.BAG IVPB SCH (06:55)
[2024-07-06] MEDS: MAGNESIUM SULFATE-D5W PMX 1 GM in DEXTROSE/WATER 1 100ML.BAG IVPB ONE (06:55)
--- NOTE | 2024-07-06 09:34 | XR ---
EXAMINATION TYPE: XR chest 1V portable DATE OF EXAM: 07/06/2024 6:28 AM COMPARISON: Chest radiographs from 07/05/2024. CLINICAL INDICATION: Male, 49 years old with history of mechanically ventilated; TECHNIQUE: XR chest 1V portable Frontal view of the chest. FINDINGS: Lungs/Pleura: No evidence of focal consolidation or pneumothorax. Blunting of the costophrenic angles is present. Pulmonary vascularity: Unremarkable. Heart/mediastinum: Cardiomediastinal silhouette is unremarkable. Musculoskeletal: No acute osseous pathology. Other findings: None Tracheostomy cannula terminates above the avery. Left central venous catheter with tip terminating a t the right atrium. IMPRESSION: Small bilateral pleural effusions. [facility], , 07/06/2024 9:32 AM
[2024-07-06 10:04] LABS: Nucleated Cells, Body Fluid 340 /UL
--- NOTE | 2024-07-06 11:22 | P.PN ---
Subjective Progress Note Date: 07/06/24 SURGICAL PROGRESS NOTE CHIEF COMPLAINT: Shortness of breath HISTORY OF PRESENT ILLNESS: Surgical service following in regards to anemia. Patient has had no evidence of bloody bowel stool in his colostomy bag. PHYSICAL EXAM: VITAL SIGNS: Reviewed. GENERAL: Well-developed in no acute distress. HEENT: Trach clean dry and intact ABDOMEN: Soft. Nondistended. Nontender. Ileostomy in place no blood noted in bag. Stool is brown NEUROLOGIC: Alert and oriented. Cranial nerves II through XII grossly intact. ASSESSMENT: 1. Anemia with no evidence of active GI bleed. Status post 3 units of blood d uring this admission 2. History of Crohn's disease with ileostomy. Concern for GI bleed. No evide nce of active bleeding 3. History of tracheal stenosis PLAN: - No plans for endoscopy at this time - Continue to monitor hemoglobin - Continue to monitor for any signs or symptoms of bleeding [employer]ician [employer] note has been reviewed by physician. Signing provider agrees with the documented findings, assessment, and plan of care. Attestation Patient seen and examined at bedside on 07/06/2024. Concern for anemia. No current active signs of GI bleeding. He is status post 3 units of packed red blood cell during this admission. No current plan for endoscopy as his stool output does not appear bloody at this time. Will continue to follow and make recommendations based on patient's clinical progress. Milton Marrufo DO Objective - Vital Signs Vital signs: Vital Signs Temp 98.5 F 07/06/24 08:00 Pulse 86 07/06/24 10:00 Resp 26 H 07/06/24 10:00 BP 140/75 07/06/24 10:00 Pulse Ox 97 07/06/24 10:00 FiO2 40 07/06/24 10:00 Intake & Output 07/05/24 07/06/24 07/06/24 18:59 06:59 18:59 Intake Total 9000.486 8669.624 1639.733 Output Total 860 1405 755 Balance 867.278 6340.624 884.733 Weight 100.1 kg Intake: IV 1420 410 375 Ceftazidime/Avibactam 2.5 100 100 gm In Sodium Chloride 0. 9% 100 ml @ 50 mls/hr IVPB Q8H [facility] Rx#: [id number] KVO 190 140 40 Magnesium Sulfate-D5w Pmx 100 1 gm In Dextrose/Water 1 100ml.bag @ 100 mls/hr IVPB ONCE ONE Rx#: [id number] Mvi, Adult No.4 with Vit 85 K 10 ml Trace (Conc-1Ml/ Dose) 1 ml Sodium Chloride 4Meq/ml Vial 48 meq Potassium Chloride 26 meq Calcium Gluconate 1 gm Magnesium Sulfate gm 1 gm Sodium Phosphate 27 mmol In Amino Acids 5 %/ Dextrose 20 % 1,000 ml @ 85 mls/hr IV .BY DURATION [facility] Rx#:[id number] Potassium Chloride 20 meq 50 In Water For Injection 1 100ml.bag @ 50 mls/hr IVPB ONCE ONE Rx#: [id number] Potassium Chloride 20 meq 100 In Water For Injection 1 100ml.bag @ 50 mls/hr IVPB Q2H [facility] Rx#: [id number] Sodium Chloride 4Meq/ml 935 170 Vial 48 meq Potassium Chloride 26 meq Calcium Gluconate 1 gm Magnesium Sulfate gm 1 gm Sodium Phosphate 21 mmol In Amino Acids 5 %/Dextrose 20 % 1,000 ml @ 85 mls/hr IV .BY DURATION [facility] Rx#: [id number] Sodium Phosphate 30 mmol 195 In Dextrose 5% in Water 250 ml @ 65 mls/hr IVPB ONCE ONE Rx#:[id number] Intake, IV Titration 84.732 6650.147 8811.733 Amount Mvi, Adult No.4 with Vit 1001.583 K 10 ml Trace (Conc-1Ml/ Dose) 1 ml Sodium Chloride 4Meq/ml Vial 48 meq Potassium Chloride 26 meq Calcium Gluconate 1 gm Magnesium Sulfate gm 1 gm Sodium Phosphate 27 mmol In Amino Acids 5 %/ Dextrose 20 % 1,000 ml @ 85 mls/hr IV .BY DURATION [facility] Rx#:[id number] Sodium Chloride 4Meq/ml 1046 Vial 48 meq Potassium Chloride 26 meq Calcium Gluconate 1 gm Magnesium Sulfate gm 1 gm Sodium Phosphate 27 mmol In Amino Acids 5 %/Dextrose 20 % 1,000 ml @ 85 mls/hr IV .BY DURATION [facility] Rx#: [id number] propofoL 1,000 mg In 84.732 75.624 93.15 Empty Bag 1 bag @ 15 MCG/ KG/MIN 8.28 mls/hr IV . Q12H5M [facility] Rx#:[id number] TPN/PPN 85 1061 170 Fat Emulsion 20% 250 ml @ 126 20.833 mls/hr IV Q72H [facility] Rx#:[id number] Sodium Chloride 4Meq/ml 85 Vial 48 meq Potassium Chloride 26 meq Calcium Gluconate 1 gm Magnesium Sulfate gm 1 gm Sodium Phosphate 21 mmol In Amino Acids 5 %/Dextrose 20 % 1,000 ml @ 85 mls/hr IV .BY DURATION [facility] Rx#: [id number] Sodium Chloride 4Meq/ml 935 170 Vial 48 meq Potassium Chloride 26 meq Calcium Gluconate 1 gm Magnesium Sulfate gm 1 gm Sodium Phosphate 27 mmol In Amino Acids 5 %/Dextrose 20 % 1,000 ml @ 85 mls/hr IV .BY DURATION [facility] Rx#: [id number] Output: Urine 860 805 305 Stool 600 450 Other: Voiding Method Indwelling Catheter Indwelling Catheter Indwelling Catheter ABP, PAP, CO, CI - Last Documented Arterial Blood Pressure 159/80 - Labs CBC & Chem 7: 07/07/24 05:03 07/07/24 05:03 Labs: Abnormal Lab Results - Last 24 Hours (Table) 07/04/24 07/05/24 07/05/24 Range/Units 08:45 13:09 19:04 RBC (4.40-5.60) 10*6/uL Hgb (13.0-17.0) g/dL Hct (39.6-50.0) % MCH (27.0-32.0) pg MCHC (32.0-37.0) g/dL ABG HCO3 (21-25) mmol/L ABG Total CO2 (19-24) mmol/L ABG O2 Saturation (94-97) % Hemoglobin (13.0-17.5) gm/dL Sodium (137-145) mmol/L Potassium (3.5-5.1) mmol/L Creatinine (0.66-1.25) mg/dL Glucose (74-99) mg/dL POC Glucose (mg/dL) 129 H 124 H (70-110) mg/dL Calcium (8.4-10.2) mg/dL Fluid Appearance Blood Tinged A (Clear) 07/06/24 07/06/24 07/06/24 Range/Units 00:09 04:25 04:25 RBC 3.39 L (4.40-5.60) 10*6/uL Hgb 8.5 L (13.0-17.0) g/dL Hct 29.0 L (39.6-50.0) % MCH 25.1 L (27.0-32.0) pg MCHC 29.3 L (32.0-37.0) g/dL ABG HCO3 (21-25) mmol/L ABG Total CO2 (19-24) mmol/L ABG O2 Saturation (94-97) % Hemoglobin (13.0-17.5) gm/dL Sodium 135 L (137-145) mmol/L Potassium 3.4 L (3.5-5.1) mmol/L Creatinine 0.33 L (0.66-1.25) mg/dL Glucose 132 H (74-99) mg/dL POC Glucose (mg/dL) 122 H (70-110) mg/dL Calcium 8.2 L (8.4-10.2) mg/dL Fluid Appearance (Clear) 07/06/24 07/06/24 Range/Units 05:17 06:15 RBC (4.40-5.60) 10*6/uL Hgb (13.0-17.0) g/dL Hct (39.6-50.0) % MCH (27.0-32.0) pg MCHC (32.0-37.0) g/dL ABG HCO3 28 H (21-25) mmol/L ABG Total CO2 29 H (19-24) mmol/L ABG O2 Saturation 98.5 H (94-97) % Hemoglobin 8.5 L (13.0-17.5) gm/dL Sodium (137-145) mmol/L Potassium (3.5-5.1) mmol/L Creatinine (0.66-1.25) mg/dL Glucose (74-99) mg/dL POC Glucose (mg/dL) 128 H (70-110) mg/dL Calcium (8.4-10.2) mg/dL Fluid Appearance (Clear) Microbiology - Last 24 Hours (Table) 07/04/24 08:45 Gram Stain - Preliminary Bronchial Washings - Random
[2024-07-06 12:08] LABS: Glucose,Whole Blood 146 mg/dL (70-110)
[2024-07-06] MEDS: VANCOMYCIN TROUGH DUE 1 EACH MISC MISCELLANE ONE (12:28)
--- NOTE | 2024-07-06 13:47 | P.PN ---
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 Patient is obese and he has developed chronic generalized weakness, respiratory insufficiency with recurrent pneumonias requiring previous intubation and mechanical ventilation. The patient has also been treated for episodes of pneumonias in the past including pseudomonal pneumonia earlier this year. He does have also an area of tracheal stenosis related to previous tracheal manipulation and tracheostomy tube insertion. Currently he has a permanent tracheostomy tube in place to secure his airways. 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 Following his most recent hospitalization in March 2024, the patient was discharged to [facility] and following that he was discharged home where he has been taking care of by family members. Since then, the patient has done well. The patient came into the emergency department as he has stated that he has been feeling more short of breath and his dyspnea is occurring in episodes. Nevertheless, he has remained hemodynamically stable. He remains on 35 to 40% trach collar without development of any significant respiratory secretions. Blo od work has been essentially stable. The white cell count at time of admission was at 5.4 with a hemoglobin of 8.3 and a platelet count of 181. Sodium levels at 139, bicarb is at 33, BUN 23 with a creatinine of 0.35. Troponins were negative. LFTs are essentially within normal limits. Total protein was at 7.4 with an albumin of 3.5. The viral screen was negative in the emergency department. Also, the patient was given a chest x-ray that showed smaller lung volumes and poor respiratory effort. There is some cardiomegaly. No acute airspace disease or consolidation. His EKG showed a normal sinus mechanism. Based on that, the patient was hospitalized in the pulmonary consultation was r equested. He was started on empiric antibiotic coverage with IV Rocephin. Noted the patient is bedridden. He has chronic muscle atrophy and contractures in his lower extremities. He remains on therapeutic dose of Lovenox 90 mg subcu every 12 hours. On 06/21/2024, the patient feels that something is obstructing his airways. At times he is feeling short of breath. No clear explanation. There may be some anatomic problems and obstruction in his trachea as during my early bronchoscopies, I noted that the patient has an area of tracheal stenosis at the site of previous tracheostomy tube insertion. I think it would be douglas to reevaluate this patient's airway right bronchoscopy and document patency of the airway. No significant respiratory secretions for now. No fever. No chills. Blood cultures are still negative. White cell count is 6.7, hemoglobin is 8.5, BUN is 12 with a creatinine of 0.36. He remains on a 40% trach collar. Remains on TPN for nutritional support. On 07/06/2024, the patient is being seen for a follow-up. This morning, the patient is awake and alert on propofol at 50 mcg/kg/min. He remains on a mechanical ventilator on assist-control mode rate of 20, tidal volume of 450, FiO2 40% with a PEEP of 5. Blood gas showed a pH of 7.44 with a RNP998 and PO2 of 94. Chest x-ray shows small bilateral pleural effusions. The patient had normal citrate of 10 cc an hour. The patient on TPN at rate of 85 cc an hour. Output from the ileostomy bag is in the order of 400 cc over the past 24 hours. He has a triple-lumen catheter in his left femoral in addition to an arterial cath in his left femoral and a PICC line in his left subclavian. Fluid balance is +1.9 L over the past 24 hours. Respiratory status is stable. No significant fluid secretions. The patient has #6 Shiley XLT tracheostomy tube. Previous cultures were positive for Pseudomonas aeruginosa and corynebacterium and the patient is currently on ceftazidime/avibactam. The patient is also on vancomycin. Afebrile. No pressors for now. The white cell count is at 6.3 with a hemoglobin 8.5 and a platelet count of 252. Sodium is at 135, potassium is at 3.4, BUN 16 with a creatinine of 0.3. Objective - Vital Signs Vital signs: Vital Signs Temp 98.5 F 07/06/24 08:00 Pulse 79 07/06/24 08:30 Resp 25 H 07/06/24 08:30 BP 121/63 07/06/24 08:30 Pulse Ox 98 07/06/24 08:30 FiO2 40 07/06/24 08:30 Intake & Output 07/05/24 07/06/24 07/06/24 18:59 06:59 18:59 Intake Total 9298.356 7410.624 433.15 Output Total 860 1405 565 Balance 510.958 6608.624 -131.85 Weight 100.1 kg Intake: IV 1420 410 170 Ceftazidime/Avibactam 2.5 100 100 gm In Sodium Chloride 0. 9% 100 ml @ 50 mls/hr IVPB Q8H [facility] Rx#: [id number] KVO 190 140 20 Magnesium Sulfate-D5w Pmx 100 1 gm In Dextrose/Water 1 100ml.bag @ 100 mls/hr IVPB ONCE ONE Rx#: [id number] Potassium Chloride 20 meq 50 In Water For Injection 1 100ml.bag @ 50 mls/hr IVPB ONCE ONE Rx#: [id number] Sodium Chloride 4Meq/ml 935 170 Vial 48 meq Potassium Chloride 26 meq Calcium Gluconate 1 gm Magnesium Sulfate gm 1 gm Sodium Phosphate 21 mmol In Amino Acids 5 %/Dextrose 20 % 1,000 ml @ 85 mls/hr IV .BY DURATION [facility] Rx#: [id number] Sodium Phosphate 30 mmol 195 In Dextrose 5% in Water 250 ml @ 65 mls/hr IVPB ONCE ONE Rx#:[id number] Intake, IV Titration 84.732 1121.624 93.15 Amount Sodium Chloride 4Meq/ml 1046 Vial 48 meq Potassium Chloride 26 meq Calcium Gluconate 1 gm Magnesium Sulfate gm 1 gm Sodium Phosphate 27 mmol In Amino Acids 5 %/Dextrose 20 % 1,000 ml @ 85 mls/hr IV .BY DURATION [facility] Rx#: [id number] propofoL 1,000 mg In 84.732 75.624 93.15 Empty Bag 1 bag @ 15 MCG/ KG/MIN 8.28 mls/hr IV . Q12H5M [facility] Rx#:[id number] TPN/PPN 85 1061 170 Fat Emulsion 20% 250 ml @ 126 20.833 mls/hr IV Q72H [facility] Rx#:[id number] Sodium Chloride 4Meq/ml 85 Vial 48 meq Potassium Chloride 26 meq Calcium Gluconate 1 gm Magnesium Sulfate gm 1 gm Sodium Phosphate 21 mmol In Amino Acids 5 %/Dextrose 20 % 1,000 ml @ 85 mls/hr IV .BY DURATION [facility] Rx#: [id number] Sodium Chloride 4Meq/ml 935 170 Vial 48 meq Potassium Chloride 26 meq Calcium Gluconate 1 gm Magnesium Sulfate gm 1 gm Sodium Phosphate 27 mmol In Amino Acids 5 %/Dextrose 20 % 1,000 ml @ 85 mls/hr IV .BY DURATION [facility] Rx#: [id number] Output: Urine 860 805 115 Stool 600 450 Other: Voiding Method Indwelling Catheter Indwelling Catheter ABP, PAP, CO, CI - Last Documented Arterial Blood Pressure 98/74 - Exam GENERAL EXAM: Awake, alert 49-year-old male patient, on the mechanical ventilator, in no apparent distress. HEAD: Normocephalic. EYES: Normal reaction of pupils, equal size. NOSE: Clear with pink turbinates. THROAT: Tracheostomy tube secured in place. No erythema or exudates. NECK: No masses, no JVD. CHEST: No chest wall deformity. LUNGS: Equal air entry with coarse rhonchi bilaterally. CVS: S1 and S2 normal with no audible murmur, regular rhythm. ABDOMEN: Enterocutaneous fistula over the abdominal wall. No hepatosplenomegaly, normal bowel sounds. SPINE: No scoliosis or deformity SKIN: No rashes CENTRAL NERVOUS SYSTEM: No focal deficits, tone is normal in all 4 extremities. EXTREMITIES: Extensive muscle atrophy. Contractures. There is no peripheral edema. No clubbing, no cyanosis. Peripheral pulses are intact. - Labs CBC & Chem 7: 07/06/24 04:25 07/06/24 12:07 Labs: Abnormal Lab Results - Last 24 Hours (Table) 07/04/24 07/05/24 07/05/24 Range/Units 08:45 13:09 19:04 RBC (4.40-5.60) 10*6/uL Hgb (13.0-17.0) g/dL Hct (39.6-50.0) % MCH (27.0-32.0) pg MCHC (32.0-37.0) g/dL ABG HCO3 (21-25) mmol/L ABG Total CO2 (19-24) mmol/L ABG O2 Saturation (94-97) % Hemoglobin (13.0-17.5) gm/dL Sodium (137-145) mmol/L Potassium (3.5-5.1) mmol/L Creatinine (0.66-1.25) mg/dL Glucose (74-99) mg/dL POC Glucose (mg/dL) 129 H 124 H (70-110) mg/dL Calcium (8.4-10.2) mg/dL Fluid Appearance Blood Tinged A (Clear) 07/06/24 07/06/24 07/06/24 Range/Units 00:09 04: 04:25 RBC 3.39 L (4.40-5.60) 10*6/uL Hgb 8.5 L (13.0-17.0) g/dL Hct 29.0 L (39.6-50.0) % MCH 25.1 L (27.0-32.0) pg MCHC 29.3 L (32.0-37.0) g/dL ABG HCO3 (21-25) mmol/L ABG Total CO2 (19-24) mmol/L ABG O2 Saturation (94-97) % Hemoglobin (13.0-17.5) gm/dL Sodium 135 L (137-145) mmol/L Potassium 3.4 L (3.5-5.1) mmol/L Creatinine 0.33 L (0.66-1.25) mg/dL Glucose 132 H (74-99) mg/dL POC Glucose (mg/dL) 122 H (70-110) mg/dL Calcium 8.2 L (8.4-10.2) mg/dL Fluid Appearance (Clear) 07/06/24 07/06/24 Range/Units 05:17 06:15 RBC (4.40-5.60) 10*6/uL Hgb (13.0-17.0) g/dL Hct (39.6-50.0) % MCH (27.0-32.0) pg MCHC (32.0-37.0) g/dL ABG HCO3 28 H (21-25) mmol/L ABG Total CO2 29 H (19-24) mmol/L ABG O2 Saturation 98.5 H (94-97) % Hemoglobin 8.5 L (13.0-17.5) gm/dL Sodium (137-145) mmol/L Potassium (3.5-5.1) mmol/L Creatinine (0.66-1.25) mg/dL Glucose (74-99) mg/dL POC Glucose (mg/dL) 128 H (70-110) mg/dL Calcium (8.4-10.2) mg/dL Fluid Appearance (Clear) Microbiology - Last 24 Hours (Table) 07/04/24 08:45 Gram Stain - Preliminary Bronchial Washings - Random Assessment and Plan Plan: Acute on chronic hypoxemic and hypercapnic respiratory failure, multifactorial. Transferred back into the intensive care unit 07/04/2024 and placed back on the mechanical ventilator. Respiratory failure was essentially due to respiratory secretions. He has chronic respiratory insufficiency and neuromuscular weakness. The patient decompensated because of pseudomonal pneumonia and respiratory secretions. He is post bronchoscopy. The patient is currently on ceftazidime avibactam. He is also on vancomycin. No significant respiratory secretions and the patient is tolerating PSV trials. He did tolerate 2 hours of a PSV trial yesterday. Acute left lower lobe pneumonia. Reviewed bronchoscopy 06/22/2024 with cultures positive for Pseudomonas aeruginosa and corynebacterium striatum. Repeat bronchoscopy with BAL 07/04/2024. Cultures are still positive for the same microorganism and the patient remains on the same antibiotics which include a combination of ceftazidime and Bactrim and vancomycin. Hypotension, currently receiving fluid resuscitation, currently hemodynamically stable on no pressors Tracheal stenosis, the patient has a #6 Shiley XLT tracheostomy tube in place History of recurrent ventilator dependent respiratory failure, secondary to pneumonia and mucous plugging History of sepsis, secondary to pneumonia. Crohn's disease, with previous complication of bowel perforation s/p colectomy and diverting ileostomy. The patient also has had previous history of abdominal wall bleeding there is currently inactive and stable. The patient has a high output ileostomy Tracheobronchomalacia History of DVT History of CVA/TIA Right below the knee amputation History of asystole/cardiac arrest, 2021 Plan: Continue ventilator support Switch this patient to a PSV of 5 and a PEEP of 5 and this will be done on a daily basis No significant respiratory secretions continue on Avycaz and vancomycin Remains on TPN and lipids Anticoagulated with Lovenox Continue DuoNeb inhalations Discontinue Pulmicort Respules Protonix for GI prophylaxis Wean down propofol and discontinue Progress is slow. May be a good candidate for select specialty. Will continue to follow. Evaluation was done and 33 minutes. Time with Patient: Greater than 30
[2024-07-06 17:28] LABS: Glucose,Whole Blood 124 mg/dL (70-110)
--- NOTE | 2024-07-06 19:32 | P.PN ---
Subjective Progress Note Date: 07/06/24 Patient admitted for bilateral cramping due to pneumonia gram-negative organism is not identified yet patient had Pseudomonas in the past patient underwent bronchoscopy patient remains on mechanical ventilation broad-spectrum antibiotics patient has a tracheostomy in place. Patient underwent bronchoalveolar lavage. 06/26/2024 Patient is evaluated in the ICU. Remains on the mechanical ventilator with FiO2 of 40%. Sputum culture reveals pseudomonas aeruginosa, corynebacterium striatum group. He remains on antibiotics with IV ceftazidime/Avibactam. TPN infusing. Labs today reveal white blood cell count 4.72, hgb 7.6, sodium 135, potassium 4.0, BUN 13, creatinine 0.39. Magnesium 1.9. Triglycerides of 183.00. 06/27/2024 Patient is evaluated in the intensive care unit. He is currently on the trach collar. Awake alert and oriented. Chest xray today shows left lower lobe atelectasis or pneumonia. Per mother at the bedside he was only home [facility] day prior to returning to the hospital. He will likely need to return to [facility] on DC. Remains on TPN. White blood cell count 5.07, hgb 7.3, sodium 134, BUN 11, creatinine 0.34. 06/28/2024 Patient is eval today in intensive care unit. He is complaining of pain in the right ear manual examination does reveal some erythema of the canal and eardrum. We will add eardrops and monitor for improvement in symptoms. Patient is awake alert oriented he has tolerated trach collar. Chest x-ray today reveals a developing left lower lobe infiltrate with a small effusion which may be present. He continues on IV meropenem for positive sputum and bronchial washings of Pseudomonas aeruginosa and corynebacterium striatum group. Labs today reveal a white blood cell count of 5.55, hemoglobin 7.4, sodium 135, BUN of 11 creatinine 0.40. 06/29/2024 Patient is evaluated in the intensive care unit he is currently downgraded and pending a bed on the medical floor. Patient is ready for discharge and did discuss with the patient that he needs to follow-up with his family and I will also talk with his family regarding discharge planning if he is able to discharge home versus subacute rehab versus LTAC. Patient is adamant that that [facility] will not [facility]. Due to his complex medical needs including PEG tube, TPN, his tracheostomy, ileostomy, and IV antibiotics he may not be a candidate for subacute rehabilitation but referrals were placed by social work. He does state that his right ear feels better after being initiated on antibiotic eardrops and they will be continued at this time. His labs today reveal a white blood cell count of 5.50, hemoglobin 7.6, sodium level of 135, BUN of 9 creatinine 0.37 and magnesium level of 1.8. 06/30/2024 Patient is evaluated in follow-up in the medical floor. He has no acute complaints at this time. He does report again mild improvement in his right ear pain and he continues with the eardrops. Had a long discussion with patient's son over and over the phone regarding discharge planning. Alan is apprehensive about allowing child to return home due to his complex medical needs and somebody having to stay up with him overnight for suctioning and trach care. Open would like him to return [facility] for at least another month or so until his other brother comes home from college. Will need to follow-up with patient tomorrow regarding this and awaiting other referrals for any other excepting facility as patient really does not want to return to the [facility]. 07/01/2024 Patient evaluated today resting in bed. Per nursing he was lethargic overnight but seems improved today. Patient is currently a bed at a subacute rehab [facility] and social work following. He remains on IV ceftazidime/avibactam. Chest x-ray today Reveals stable chest with left-sided pleural effusion. There is opacification of the right lung base and left lung base. Patient is on TPN. Patient is afebrile, heart rate 53, blood pressure 144/67, 100% on trach collar. 07/02/2024 Patient evaluated today in follow up. No acute complaints at this time. Still pending accepting rehab facility. Remains on the IV ceftazidime/avibactam. 07/03/2024 Patient evaluated today in follow up was downgraded to the general medical floor. Report the right ear pain and fullness is better. He continues on IV ceftazidime/Avibactam and IV vancomycin for the pseudomonas in the sputum. No accepting facility so far. He may need to remain hospitalized while he finishes course of antibiotics. He is tolerating the trach collar. 07/04. Patient seen and examined. Patient was a teamed this morning for decrease responsiveness, was found to be hypoxemic, was transferred back to ICU and was placed on ventilator. Patient is currently on breathing treatments. Hemoglobin this morning was 6.8, 1 unit of packed red blood cells ordered. Patient has been started on Levophed 07/05. Patient seen and examined. Patient is currently off sedation, opening eyes. Patient received 2 units of packed red blood cells in total since yesterday, hemoglobin improved to8.3, WBC 6.03, platelet count 229, sodium 137, potassium 3.8, BUN 18, creatinine 0.34, glucose 143, phosphorus 1.8. Critical care planning to trial CPAP 07/06/2024 Patient evaluated today in the intensive care unit. He is awake alert and responsive, he is able to answer simple questions. Under bronchoscopy on 07/04 with preliminary cultures showing pseudomonas aeruginosa; corynebacterium striatum group. Chest xray shows small bilateral pleural effusions. Remains on IV antibiotics. He is on the mechanical ventilator. Hemoglobin better today at 8.5. Sodium of 135, potassium 3.4. Review of Systems Constitutional: Denied any fatigue denied any fever. Cardio vascular: denied any chest pain, palpitations Gastrointestinal: denied any nausea, vomiting, diarrhea Pulmonary: Denied any shortness of breath cough Neurologic denied any new focal deficits All inpatient medications were reviewed and appropriate changes in these medications as dictated in the interval history and assessment and plan. PHYSICAL EXAMINATION: GENERAL: Patient is awake alert oriented x3. HEENT: Pupils are round and equally reacting to light. EOMI. No scleral icterus. No conjunctival pallor. Normocephalic, atraumatic. No pharyngeal erythema. No thyromegaly. Tracheostomy in place. CARDIOVASCULAR: S1 and S2 present. No murmurs, rubs, or gallops. PULMONARY: Chest is clear to auscultation, no wheezing or crackles. ABDOMEN: Soft, nontender, nondistended, normoactive bowel sounds. No palpable organomegaly. MUSCULOSKELETAL: No joint swelling or deformity. EXTREMITIES: No cyanosis, clubbing, or pedal edema. NEUROLOGICAL: Sedated at this time SKIN: No rashes. Assessment and plan Bilateral gram-negative pneumonia possibility of aspiration infectious disease and multiple other consultants are following the patient - Acute respiratory failure requiring mechanical ventilation status post br onchoalveolar lavage; cultures growing pseudomonas and corynebacterium. Repeat bronch reveals same cultures. pending microsensitivities. - Crohn's disease with ileostomy in the past patient is presently on TPN - Anemia with no active GI bleed s/p 3 units of PRBC - Right sided otitis media completed gtts. 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 Repeat bronchoscopy with BAL 07/04/2024 pending final cultures. Status post 3 unit of packed red blood cell Continue Lovenox Continue on Avycaz and vancomycin Remains on TPN and lipids Continue DuoNeb inhalations Pulmonology following ID following Repeat blood work Social work following for DC planning when medically stable. The impression and plan of care has been dictated by Coral Medina Nurse Practitioner as directed. Dr. Mo MD I have performed a history and physical examination and medical decision making of this patient, discussed the same with the dictator, and agree with the dictators assessment and plan as written, documented as a scribe. Based on total visit time, I have performed more than 50% of this visit. Objective - Vital Signs Vital signs: Vital Signs Temp 98.5 F 07/06/24 08:00 Pulse 86 07/06/24 10:00 Resp 26 H 07/06/24 10:00 BP 140/75 07/06/24 10:00 Pulse Ox 97 07/06/24 10:00 FiO2 40 07/06/24 10:00 Intake & Output 07/05/24 07/06/24 07/06/24 18:59 06:59 18:59 Intake Total 9374.866 3438.624 1639.733 Output Total 860 1405 755 Balance 700.432 3258.624 884.733 Weight 100.1 kg Intake: IV 1420 410 375 Ceftazidime/Avibactam 2.5 100 100 gm In Sodium Chloride 0. 9% 100 ml @ 50 mls/hr IVPB Q8H [facility] Rx#: [id number] KVO 190 140 40 Magnesium Sulfate-D5w Pmx 100 1 gm In Dextrose/Water 1 100ml.bag @ 100 mls/hr IVPB ONCE ONE Rx#: [id number] Mvi, Adult No.4 with Vit 85 K 10 ml Trace (Conc-1Ml/ Dose) 1 ml Sodium Chloride 4Meq/ml Vial 48 meq Potassium Chloride 26 meq Calcium Gluconate 1 gm Magnesium Sulfate gm 1 gm Sodium Phosphate 27 mmol In Amino Acids 5 %/ Dextrose 20 % 1,000 ml @ 85 mls/hr IV .BY DURATION [facility] Rx#:[id number] Potassium Chloride 20 meq 50 In Water For Injection 1 100ml.bag @ 50 mls/hr IVPB ONCE ONE Rx#: [id number] Potassium Chloride 20 meq 100 In Water For Injection 1 100ml.bag @ 50 mls/hr IVPB Q2H [facility] Rx#: [id number] Sodium Chloride 4Meq/ml 935 170 Vial 48 meq Potassium Chloride 26 meq Calcium Gluconate 1 gm Magnesium Sulfate gm 1 gm Sodium Phosphate 21 mmol In Amino Acids 5 %/Dextrose 20 % 1,000 ml @ 85 mls/hr IV .BY DURATION [facility] Rx#: [id number] Sodium Phosphate 30 mmol 195 In Dextrose 5% in Water 250 ml @ 65 mls/hr IVPB ONCE ONE Rx#:[id number] Intake, IV Titration 84.732 2259.669 8214.733 Amount Mvi, Adult No.4 with Vit 1001.583 K 10 ml Trace (Conc-1Ml/ Dose) 1 ml Sodium Chloride 4Meq/ml Vial 48 meq Potassium Chloride 26 meq Calcium Gluconate 1 gm Magnesium Sulfate gm 1 gm Sodium Phosphate 27 mmol In Amino Acids 5 %/ Dextrose 20 % 1,000 ml @ 85 mls/hr IV .BY DURATION [facility] Rx#:[id number] Sodium Chloride 4Meq/ml 1046 Vial 48 meq Potassium Chloride 26 meq Calcium Gluconate 1 gm Magnesium Sulfate gm 1 gm Sodium Phosphate 27 mmol In Amino Acids 5 %/Dextrose 20 % 1,000 ml @ 85 mls/hr IV .BY DURATION [facility] Rx#: [id number] propofoL 1,000 mg In 84.732 75.624 93.15 Empty Bag 1 bag @ 15 MCG/ KG/MIN 8.28 mls/hr IV . Q12H5M [facility] Rx#:[id number] TPN/PPN 85 1061 170 Fat Emulsion 20% 250 ml @ 126 20.833 mls/hr IV Q72H [facility] Rx#:[id number] Sodium Chloride 4Meq/ml 85 Vial 48 meq Potassium Chloride 26 meq Calcium Gluconate 1 gm Magnesium Sulfate gm 1 gm Sodium Phosphate 21 mmol In Amino Acids 5 %/Dextrose 20 % 1,000 ml @ 85 mls/hr IV .BY DURATION [facility] Rx#: [id number] Sodium Chloride 4Meq/ml 935 170 Vial 48 meq Potassium Chloride 26 meq Calcium Gluconate 1 gm Magnesium Sulfate gm 1 gm Sodium Phosphate 27 mmol In Amino Acids 5 %/Dextrose 20 % 1,000 ml @ 85 mls/hr IV .BY DURATION [facility] Rx#: [id number] Output: Urine 860 805 305 Stool 600 450 Other: Voiding Method Indwelling Catheter Indwelling Catheter Indwelling Catheter ABP, PAP, CO, CI - Last Documented Arterial Blood Pressure 159/80 - Labs CBC & Chem 7: 07/06/24 04:07/06/24 12:07 Labs: Abnormal Lab Results - Last 24 Hours (Table) 07/04/24 07/05/24 07/05/24 Range/Units 08:45 13:09 19:04 RBC (4.40-5.60) 10*6/uL Hgb (13.0-17.0) g/dL Hct (39.6-50.0) % MCH (27.0-32.0) pg MCHC (32.0-37.0) g/dL ABG HCO3 (21-25) mmol/L ABG Total CO2 (19-24) mmol/L ABG O2 Saturation (94-97) % Hemoglobin (13.0-17.5) gm/dL Sodium (137-145) mmol/L Potassium (3.5-5.1) mmol/L Creatinine (0.66-1.25) mg/dL Glucose (74-99) mg/dL POC Glucose (mg/dL) 129 H 124 H (70-110) mg/dL Calcium (8.4-10.2) mg/dL Fluid Appearance Blood Tinged A (Clear) 07/06/24 07/06/24 07/06/24 Range/Units 00:09 04: 04:25 RBC 3.39 L (4.40-5.60) 10*6/uL Hgb 8.5 L (13.0-17.0) g/dL Hct 29.0 L (39.6-50.0) % MCH 25.1 L (27.0-32.0) pg MCHC 29.3 L (32.0-37.0) g/dL ABG HCO3 (21-25) mmol/L ABG Total CO2 (19-24) mmol/L ABG O2 Saturation (94-97) % Hemoglobin (13.0-17.5) gm/dL Sodium 135 L (137-145) mmol/L Potassium 3.4 L (3.5-5.1) mmol/L Creatinine 0.33 L (0.66-1.25) mg/dL Glucose 132 H (74-99) mg/dL POC Glucose (mg/dL) 122 H (70-110) mg/dL Calcium 8.2 L (8.4-10.2) mg/dL Fluid Appearance (Clear) 07/06/24 07/06/24 Range/Units 05:17 06:15 RBC (4.40-5.60) 10*6/uL Hgb (13.0-17.0) g/dL Hct (39.6-50.0) % MCH (27.0-32.0) pg MCHC (32.0-37.0) g/dL ABG HCO3 28 H (21-25) mmol/L ABG Total CO2 29 H (19-24) mmol/L ABG O2 Saturation 98.5 H (94-97) % Hemoglobin 8.5 L (13.0-17.5) gm/dL Sodium (137-145) mmol/L Potassium (3.5-5.1) mmol/L Creatinine (0.66-1.25) mg/dL Glucose (74-99) mg/dL POC Glucose (mg/dL) 128 H (70-110) mg/dL Calcium (8.4-10.2) mg/dL Fluid Appearance (Clear) Microbiology - Last 24 Hours (Table) 07/04/24 08:45 Gram Stain - Preliminary Bronchial Washings - Random Assessment and Plan Time with Patient: Less than 30
[2024-07-07 00:22] LABS: Glucose,Whole Blood 116 mg/dL (70-110)
[2024-07-07 05:11] LABS: Basophils # (A) 0.03 10*3/uL (0.00-0.10); Basophils % (A) 0.5 %; Eosinophils # (A) 0.21 10*3/uL (0.04-0.35); Eosinophils % (A) 3.8 %; HCT 29.6 % (39.6-50.0); HGB 8.9 g/dL (13.0-17.0); MCH 25.7 pg (27.0-32.0); MCHC 30.1 g/dL (32.0-37.0); MCV 85.5 fL (80.0-97.0); Mean Platelet Volume 11.4 fL (9.5-12.2); Monocytes # (A) 0.38 10*3/uL (0.20-1.00); Monocytes % (A) 6.8 %; Neutrophils # (A) 3.42 10*3/uL (1.80-7.70); Neutrophils % (A) 61.7 %; Platelet Count 253 10*3/uL (140-440); RBC 3.46 10*6/uL (4.40-5.60); RDW 16.5 % (11.5-14.5); WBC 5.55 10*3/uL (4.50-10.00)
[2024-07-07 05:39] LABS: Glucose,Whole Blood 112 mg/dL (70-110)
[2024-07-07 05:39] LABS: ABG Base Excess 2.9 mmol/L; ABG HCO3 28 mmol/L (21-25); ABG Oxygen Saturation 98.7 % (94-97); ABG PCO2 43 mmHg (35-45); ABG PH 7.42 (7.35-7.45); ABG PO2 102 mmHg (83-108); ABG TCO2 29 mmol/L (19-24)
[2024-07-07 05:40] LABS: Allen Test Performed? no
[2024-07-07 05:59] LABS: African American GFR (CKD) >90 (>60 ml/min/1.73 sqM); Anion Gap 7 mmol/L; Blood Urea Nitrogen 13 mg/dL (9-20); Calcium 8.8 mg/dL (8.4-10.2); Carbon Dioxide 26 mmol/L (22-30); Chloride 103 mmol/L (98-107); Glucose 117 mg/dL (74-99); Non-African American GFR(CKD) >90 (>60 ml/min/1.73 sqM); Potassium 3.9 mmol/L (3.5-5.1); Sodium 136 mmol/L (137-145)
[2024-07-07] MEDS: VANCOMYCIN 1,750 MG in SODIUM CHLORIDE 0.9% 500 ML 500 ML IVPB SCH (06:16)
--- NOTE | 2024-07-07 08:10 | XR ---
EXAMINATION TYPE: XR chest 1V portable DATE OF EXAM: 07/07/2024 5:48 AM COMPARISON: Chest radiographs from 07/06/2024 CLINICAL INDICATION: Male, 49 years old with history of mechanical ventilation; [facility] TECHNIQUE: XR chest 1V portable Frontal view of the chest. FINDINGS: Lungs/Pleura: No evidence of focal consolidation or pneumothorax. Blunting of the costophrenic angles is present. Pulmonary vascularity: Unremarkable. Heart/mediastinum: Cardiomediastinal silhouette is unremarkable. Musculoskeletal: No acute osseous pathology. Other findings: None Lines/Tubes: Tracheostomy cannula tip projecting over the trachea. Left central venous catheter with distal tip at the cavoatrial junction. IMPRESSION: Bilateral trace pleural effusions. Tracheostomy cannula in appropriate position. [facility], , 07/07/2024 8:08 AM
[2024-07-07] MEDS: POTASSIUM CHLORIDE 20 MEQ in WATER FOR INJECTION 1 100ML.BAG IVPB ONE (08:50)
[2024-07-07] MEDS: ENOXAPARIN 100 MG/ML SYRINGE SQ SCH (09:02)
[2024-07-07] MEDS: PROPOFOL 10 MG/ML 20 ML VIAL IV ONE (10:19)
[2024-07-07 11:55] LABS: Glucose,Whole Blood 116 mg/dL (70-110)
--- NOTE | 2024-07-07 13:05 | P.PN ---
Subjective Progress Note Date: 07/07/24 SURGICAL PROGRESS NOTE CHIEF COMPLAINT: Shortness of breath HISTORY OF PRESENT ILLNESS: Surgical service following in regards to anemia. Patient has had no evidence of bloody bowel stool in his colostomy bag. Patient had bronchoscopy this morning. hgb stable at 8.9 PHYSICAL EXAM: VITAL SIGNS: Reviewed. GENERAL: Well-developed in no acute distress. HEENT: Trach clean dry and intact ABDOMEN: Soft. Nondistended. Nontender. Ileostomy in place no blood noted in bag. Stool is brown NEUROLOGIC: Alert and oriented. Cranial nerves II through XII grossly intact. ASSESSMENT: 1. Anemia with no evidence of active GI bleed. Status post 3 units of blood during this admission. Hgb remains stable 2. History of Crohn's disease with ileostomy. Concern for GI bleed. No evidence of active bleeding 3. History of tracheal stenosis PLAN: - No plans for endoscopy - Surgical service will sign off. Please call with any questions or concerns. Physician [employer] note has been reviewed by physician. Signing provider agrees with the documented findings, assessment, and plan of care. Attestation Patient seen and examined at bedside. Currently, hemoglobin at 8.9. No evidence of further blood in his stool. Continue ICU management. No plan for surgical intervention at this point. Please call surgical service for any reevaluation should his clinical progress change. [place] aMrrufo, Objective - Vital Signs Vital signs: Vital Signs Temp 97.6 F 07/07/24 12:00 Pulse 76 07/07/24 12:00 Resp 22 07/07/24 12:00 BP 113/64 07/07/24 12:00 Pulse Ox 99 07/07/24 12:00 FiO2 40 07/07/24 12:39 Intake & Output 07/06/24 07/07/24 07/07/24 18:59 06:59 18:59 Intake Total 3134.733 2448 687 Output Total 2050 2475 945 Balance 1084.733 573 -258 Weight 99.8 kg 99.8 kg Intake: IV 1870 467 347 0.9 Normal Saline @ KVO 220 200 80 Ceftazidime/Avibactam 2.5 50 100 gm In Sodium Chloride 0. 9% 100 ml @ 50 mls/hr IVPB Q8H [facility] Rx#: [id number] Magnesium Sulfate-D5w Pmx 100 1 gm In Dextrose/Water 1 100ml.bag @ 100 mls/hr IVPB ONCE ONE Rx#: [id number] Mvi, Adult No.4 with Vit 850 K 10 ml Trace (Conc-1Ml/ Dose) 1 ml Sodium Chloride 4Meq/ml Vial 48 meq Potassium Chloride 26 meq Calcium Gluconate 1 gm Magnesium Sulfate gm 1 gm Sodium Phosphate 27 mmol In Amino Acids 5 %/ Dextrose 20 % 1,000 ml @ 85 mls/hr IV .BY DURATION [facility] Rx#:[id number] Potassium Chloride 20 meq 50 In Water For Injection 1 100ml.bag @ 50 mls/hr IVPB ONCE ONE Rx#: [id number] Potassium Chloride 20 meq 100 100 In Water For Injection 1 100ml.bag @ 50 mls/hr IVPB Q2H [facility] Rx#: [id number] Vancomycin 1,750 mg In 500 167 167 Sodium Chloride 0.9% 500 ml 500 ml @ 167 mls/hr IVPB Q16H [facility] Rx#: [id number] Intake, IV Titration 2883.586 6978 Amount Mvi, Adult No.4 with Vit 1001.583 0 K 10 ml Trace (Conc-1Ml/ Dose) 1 ml Sodium Chloride 4Meq/ml Vial 48 meq Potassium Chloride 26 meq Calcium Gluconate 1 gm Magnesium Sulfate gm 1 gm Sodium Phosphate 27 mmol In Amino Acids 5 %/ Dextrose 20 % 1,000 ml @ 85 mls/hr IV .BY DURATION [facility] Rx#:[id number] Sodium Chloride 4Meq/ml 1046 Vial 48 meq Potassium Chloride 26 meq Calcium Gluconate 1 gm Magnesium Sulfate gm 1 gm Sodium Phosphate 27 mmol In Amino Acids 5 %/Dextrose 20 % 1,000 ml @ 85 mls/hr IV .BY DURATION [facility] Rx#: [id number] propofoL 1,000 mg In 93.15 Empty Bag 1 bag @ 15 MCG/ KG/MIN 8.28 mls/hr IV . Q12H5M [facility] Rx#:[id number] TPN/PPN 170 935 340 Mvi, Adult No.4 with Vit 935 340 K 10 ml Trace (Conc-1Ml/ Dose) 1 ml Sodium Chloride 4Meq/ml Vial 48 meq Potassium Chloride 26 meq Calcium Gluconate 1 gm Magnesium Sulfate gm 1 gm Sodium Phosphate 27 mmol In Amino Acids 5 %/ Dextrose 20 % 1,000 ml @ 85 mls/hr IV .BY DURATION [facility] Rx#:[id number] Sodium Chloride 4Meq/ml 170 Vial 48 meq Potassium Chloride 26 meq Calcium Gluconate 1 gm Magnesium Sulfate gm 1 gm Sodium Phosphate 27 mmol In Amino Acids 5 %/Dextrose 20 % 1,000 ml @ 85 mls/hr IV .BY DURATION [facility] Rx#: [id number] Output: Urine 1600 1325 345 Stool 450 550 600 Other: Voiding Method Indwelling Catheter Indwelling Catheter Indwelling Catheter ABP, PAP, CO, CI - Last Documented Arterial Blood Pressure 141/62 - Labs CBC & Chem 7: 07/07/24 05:03 07/07/24 05:03 Labs: Abnormal Lab Results - Last 24 Hours (Table) 07/06/24 07/07/24 07/07/24 Range/Units 17:27 00:20 05:03 RBC (4.40-5.60) 10*6/uL Hgb (13.0-17.0) g/dL Hct (39.6-50.0) % MCH (27.0-32.0) pg MCHC (32.0-37.0) g/dL ABG HCO3 (21-25) mmol/L ABG Total CO2 (19-24) mmol/L ABG O2 Saturation (94-97) % Hemoglobin (13.0-17.5) gm/dL Sodium 136 L (137-145) mmol/L Creatinine 0.31 L (0.66-1.25) mg/dL Glucose 117 H (74-99) mg/dL POC Glucose (mg/dL) 124 H 116 H (70-110) mg/dL 07/07/24 07/07/24 07/07/24 Range/Units 05:03 05:32 05:38 RBC 3.46 L (4.40-5.60) 10*6/uL Hgb 8.9 L (13.0-17.0) g/dL Hct 29.6 L (39.6-50.0) % MCH 25.7 L (27.0-32.0) pg MCHC 30.1 L (32.0-37.0) g/dL ABG HCO3 28 H (21-25) mmol/L ABG Total CO2 29 H (19-24) mmol/L ABG O2 Saturation 98.7 H (94-97) % Hemoglobin 9.4 L (13.0-17.5) gm/dL Sodium (137-145) mmol/L Creatinine (0.66-1.25) mg/dL Glucose (74-99) mg/dL POC Glucose (mg/dL) 112 H (70-110) mg/dL 07/07/24 Range/Units 11:52 RBC (4.40-5.60) 10*6/uL Hgb (13.0-17.0) g/dL Hct (39.6-50.0) % MCH (27.0-32.0) pg MCHC (32.0-37.0) g/dL ABG HCO3 (21-25) mmol/L ABG Total CO2 (19-24) mmol/L ABG O2 Saturation (94-97) % Hemoglobin (13.0-17.5) gm/dL Sodium (137-145) mmol/L Creatinine (0.66-1.25) mg/dL Glucose (74-99) mg/dL POC Glucose (mg/dL) 116 H (70-110) mg/dL Microbiology - Last 24 Hours (Table) 07/05/24 05:43 Blood Culture - Preliminary Blood 07/04/24 08:45 Gram Stain - Final Bronchial Washings - Random Bronchial Washings Culture - Final Pseudomonas aeruginosa Corynebacterium striatum group 07/04/24 08:45 Acid Fast Bacilli Smear - Preliminary Bronchoalviolar Lavage - Left
--- NOTE | 2024-07-07 15:11 | P.PN ---
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 Patient is obese and he has developed chronic generalized weakness, respiratory insufficiency with recurrent pneumonias requiring previous intubation and mechanical ventilation. The patient has also been treated for episodes of pneumonias in the past including pseudomonal pneumonia earlier this year. He does have also an area of tracheal stenosis related to previous tracheal manipulation and tracheostomy tube insertion. Currently he has a permanent tracheostomy tube in place to secure his airways. 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 Following his most recent hospitalization in March 2024, the patient was discharged to [facility] and following that he was discharged home where he has been taking care of by family members. Since then, the patient has done well. The patient came into the emergency department as he has stated that he has been feeling more short of breath and his dyspnea is occurring in episodes. Nevertheless, he has remained hemodynamically stable. He remains on 35 to 40% trach collar without development of any significant respiratory secretions. Blo od work has been essentially stable. The white cell count at time of admission was at 5.4 with a hemoglobin of 8.3 and a platelet count of 181. Sodium levels at 139, bicarb is at 33, BUN 23 with a creatinine of 0.35. Troponins were negative. LFTs are essentially within normal limits. Total protein was at 7.4 with an albumin of 3.5. The viral screen was negative in the emergency department. Also, the patient was given a chest x-ray that showed smaller lung volumes and poor respiratory effort. There is some cardiomegaly. No acute airspace disease or consolidation. His EKG showed a normal sinus mechanism. Based on that, the patient was hospitalized in the pulmonary consultation was r equested. He was started on empiric antibiotic coverage with IV Rocephin. Noted the patient is bedridden. He has chronic muscle atrophy and contractures in his lower extremities. He remains on therapeutic dose of Lovenox 90 mg subcu every 12 hours. On 06/21/2024, the patient feels that something is obstructing his airways. At times he is feeling short of breath. No clear explanation. There may be some anatomic problems and obstruction in his trachea as during my early bronchoscopies, I noted that the patient has an area of tracheal stenosis at the site of previous tracheostomy tube insertion. I think it would be douglas to reevaluate this patient's airway right bronchoscopy and document patency of the airway. No significant respiratory secretions for now. No fever. No chills. Blood cultures are still negative. White cell count is 6.7, hemoglobin is 8.5, BUN is 12 with a creatinine of 0.36. He remains on a 40% trach collar. Remains on TPN for nutritional support. On 07/06/2024, the patient is being seen for a follow-up. This morning, the patient is awake and alert on propofol at 50 mcg/kg/min. He remains on a mechanical ventilator on assist-control mode rate of 20, tidal volume of 450, FiO2 40% with a PEEP of 5. Blood gas showed a pH of 7.44 with a VGL544 and PO2 of 94. Chest x-ray shows small bilateral pleural effusions. The patient had normal citrate of 10 cc an hour. The patient on TPN at rate of 85 cc an hour. Output from the ileostomy bag is in the order of 400 cc over the past 24 hours. He has a triple-lumen catheter in his left femoral in addition to an arterial cath in his left femoral and a PICC line in his left subclavian. Fluid balance is +1.9 L over the past 24 hours. Respiratory status is stable. No significant fluid secretions. The patient has #6 Shiley XLT tracheostomy tube. Previous cultures were positive for Pseudomonas aeruginosa and corynebacterium and the patient is currently on ceftazidime/avibactam. The patient is also on vancomycin. Afebrile. No pressors for now. The white cell count is at 6.3 with a hemoglobin 8.5 and a platelet count of 252. Sodium is at 135, potassium is at 3.4, BUN 16 with a creatinine of 0.3. On 07/07/2024, the patient is being seen for a follow-up. The patient is awake and alert and this morning the patient is on no sedation. He did go on a PSV trial yesterday with a PSV of 5 and a PEEP of 5 and the patient lasted for a total of 1 hour. Following that, he felt short of breath. There was no significant change in his tidal volumes or tachypnea, however the patient stated that he was unable to breathe and he preferred to go back on assist-control mode. Since then, the patient has been maintained on assist-control rate of 20, tidal volume of 450, FiO2 40% with a PEEP of 5. Blood gases from today showed a pH of 7.42 with a BJQ273 and pO2 of 102. Chest x-ray remains essentially unchanged. There are some atelectatic changes in the lung bases bilaterally along with some trace pleural effusions. Tracheostomy is in a good location. Based on this ongoing failure, mucous plugging was suspected. I performed a bronchoscopy in the ICU today and the respiratory secretions were essentially scant. There was some looseness with secretions retained in the lower lobes bilaterally this was suctioned out. Nevertheless, there was no thick or purulent secretions. There was no mucous plugs. Tracheostomy tube was in a good location in the mid trachea. The patient is hemodynamically stable. The white cell count of 5.5 with a hemoglobin 8.9 and platelet count of 253. Sodium is at 136, BUN is 13 with a creatinine of 0.31. Remains on ceftazidime IV Bactrim and vancomycin combination. Remains on TPN at a rate of 85 cc an hour. Urine output is adequate. No other active issues for now. He is awake and alert. Objective - Vital Signs Vital signs: Vital Signs Temp 98.4 F 07/07/24 04:00 Pulse 80 07/07/24 08:47 Resp 20 07/07/24 07:00 BP 135/92 07/07/24 07:00 Pulse Ox 99 07/07/24 07:00 FiO2 40 07/07/24 08:45 Intake & Output 07/06/24 07/07/24 07/07/24 18:59 06:59 18:59 Intake Total 3134.733 1402 292 Output Total 20492 445 Balance 1084.733 -473 -483 Weight 99.8 kg Intake: IV 1870 467 207 0.9 Normal Saline @ KVO 220 200 40 Ceftazidime/Avibactam 2.5 50 100 gm In Sodium Chloride 0. 9% 100 ml @ 50 mls/hr IVPB Q8H [facility] Rx#: [id number] Magnesium Sulfate-D5w Pmx 100 1 gm In Dextrose/Water 1 100ml.bag @ 100 mls/hr IVPB ONCE ONE Rx#: [id number] Mvi, Adult No.4 with Vit 850 K 10 ml Trace (Conc-1Ml/ Dose) 1 ml Sodium Chloride 4Meq/ml Vial 48 meq Potassium Chloride 26 meq Calcium Gluconate 1 gm Magnesium Sulfate gm 1 gm Sodium Phosphate 27 mmol In Amino Acids 5 %/ Dextrose 20 % 1,000 ml @ 85 mls/hr IV .BY DURATION [facility] Rx#:[id number] Potassium Chloride 20 meq 50 In Water For Injection 1 100ml.bag @ 50 mls/hr IVPB ONCE ONE Rx#: [id number] Potassium Chloride 20 meq 100 In Water For Injection 1 100ml.bag @ 50 mls/hr IVPB Q2H [facility] Rx#: [id number] Vancomycin 1,750 mg In 500 167 167 Sodium Chloride 0.9% 500 ml 500 ml @ 167 mls/hr IVPB Q16H [facility] Rx#: [id number] Intake, IV Titration 1094.733 0 Amount Mvi, Adult No.4 with Vit 1001.583 0 K 10 ml Trace (Conc-1Ml/ Dose) 1 ml Sodium Chloride 4Meq/ml Vial 48 meq Potassium Chloride 26 meq Calcium Gluconate 1 gm Magnesium Sulfate gm 1 gm Sodium Phosphate 27 mmol In Amino Acids 5 %/ Dextrose 20 % 1,000 ml @ 85 mls/hr IV .BY DURATION [facility] Rx#:[id number] propofoL 1,000 mg In 93.15 Empty Bag 1 bag @ 15 MCG/ KG/MIN 8.28 mls/hr IV . Q12H5M [facility] Rx#:[id number] TPN/PPN 170 935 85 Mvi, Adult No.4 with Vit 935 85 K 10 ml Trace (Conc-1Ml/ Dose) 1 ml Sodium Chloride 4Meq/ml Vial 48 meq Potassium Chloride 26 meq Calcium Gluconate 1 gm Magnesium Sulfate gm 1 gm Sodium Phosphate 27 mmol In Amino Acids 5 %/ Dextrose 20 % 1,000 ml @ 85 mls/hr IV .BY DURATION [facility] Rx#:[id number] Sodium Chloride 4Meq/ml 170 Vial 48 meq Potassium Chloride 26 meq Calcium Gluconate 1 gm Magnesium Sulfate gm 1 gm Sodium Phosphate 27 mmol In Amino Acids 5 %/Dextrose 20 % 1,000 ml @ 85 mls/hr IV .BY DURATION [facility] Rx#: [id number] Output: Urine 1600 1325 175 Stool 450 550 600 Other: Voiding Method Indwelling Catheter Indwelling Catheter ABP, PAP, CO, CI - Last Documented Arterial Blood Pressure 118/54 - Exam GENERAL EXAM: Awake, alert 49-year-old male patient, on the mechanical v entilator, in no apparent distress. HEAD: Normocephalic. EYES: Normal reaction of pupils, equal size. NOSE: Clear with pink turbinates. THROAT: Tracheostomy tube secured in place. No erythema or exudates. NECK: No masses, no JVD. CHEST: No chest wall deformity. LUNGS: Equal air entry with coarse rhonchi bilaterally. CVS: S1 and S2 normal with no audible murmur, regular rhythm. ABDOMEN: Enterocutaneous fistula over the abdominal wall. No hepatosplenomegaly, normal bowel sounds. SPINE: No scoliosis or deformity SKIN: No rashes CENTRAL NERVOUS SYSTEM: No focal deficits, tone is normal in all 4 extremities. EXTREMITIES: Extensive muscle atrophy. Contractures. There is no peripheral edema. No clubbing, no cyanosis. Peripheral pulses are intact. - Labs CBC & Chem 7: 07/07/24 05:03 07/07/24 05:03 Labs: Abnormal Lab Results - Last 24 Hours (Table) 07/06/24 07/06/24 07/07/24 Range/Units 12:06 17:27 00:20 RBC (4.40-5.60) 10*6/uL Hgb (13.0-17.0) g/dL Hct (39.6-50.0) % MCH (27.0-32.0) pg MCHC (32.0-37.0) g/dL ABG HCO3 (21-25) mmol/L ABG Total CO2 (19-24) mmol/L ABG O2 Saturation (94-97) % Hemoglobin (13.0-17.5) gm/dL Sodium (137-145) mmol/L Creatinine (0.66-1.25) mg/dL Glucose (74-99) mg/dL POC Glucose (mg/dL) 146 H 124 H 116 H (70-110) mg/dL 07/07/24 07/07/2407/07/25 Range/Units 05:03 05:03 05:32 RBC 3.46 L (4.40-5.60) 10*6/uL Hgb 8.9 L (13.0-17.0) g/dL Hct 29.6 L (39.6-50.0) % MCH 25.7 L (27.0-32.0) pg MCHC 30.1 L (32.0-37.0) g/dL ABG HCO3 28 H (21-25) mmol/L ABG Total CO2 29 H (19-24) mmol/L ABG O2 Saturation 98.7 H (94-97) % Hemoglobin 9.4 L (13.0-17.5) gm/dL Sodium 136 L (137-145) mmol/L Creatinine 0.31 L (0.66-1.25) mg/dL Glucose 117 H (74-99) mg/dL POC Glucose (mg/dL) (70-110) mg/dL 07/07/24 Range/Units 05:38 RBC (4.40-5.60) 10*6/uL Hgb (13.0-17.0) g/dL Hct (39.6-50.0) % MCH (27.0-32.0) pg MCHC (32.0-37.0) g/dL ABG HCO3 (21-25) mmol/L ABG Total CO2 (19-24) mmol/L ABG O2 Saturation (94-97) % Hemoglobin (13.0-17.5) gm/dL Sodium (137-145) mmol/L Creatinine (0.66-1.25) mg/dL Glucose (74-99) mg/dL POC Glucose (mg/dL) 112 H (70-110) mg/dL Microbiology - Last 24 Hours (Table) 07/04/24 08:45 Gram Stain - Final Bronchial Washings - Random Bronchial Washings Culture - Final Pseudomonas aeruginosa Corynebacterium striatum group 07/04/24 08:45 Acid Fast Bacilli Smear - Preliminary Bronchoalviolar Lavage - Left 07/05/24 05:43 Blood Culture - Preliminary Blood Assessment and Plan Plan: Acute on chronic hypoxemic and hypercapnic respiratory failure, multifactorial. Transferred back into the intensive care unit 07/04/2024 and placed back on the mechanical ventilator. Respiratory failure was essentially due to respiratory secretions. He has chronic respiratory insufficiency and neuromuscular weakness. The patient decompensated because of pseudomonal pneumonia and respiratory secretions. He is post bronchoscopy. The patient is currently on ceftazidime avibactam. He is also on vancomycin. No significant respiratory secretions and the patient is tolerating PSV trials. He did tolerate 1 hours of a PSV trial yesterday. It is possible that the patient has significant neuromuscular weakness preventing him from coming off the mechanical ventilator. Bronchoscopy was done and there was no significant mucous plugging or respiratory secretions affecting his weaning process. Acute left lower lobe pneumonia. Reviewed bronchoscopy 06/22/2024 with cultures positive for Pseudomonas aeruginosa and corynebacterium striatum. Repeat bronchoscopy with BAL 07/04/2024. Cultures are still positive for the same micro organism and the patient remains on the same antibiotics which include a combination of ceftazidime and Bactrim and vancomycin. Hypotension, currently receiving fluid resuscitation, currently hemodynamically stable on no pressors Tracheal stenosis, the patient has a #6 Shiley XLT tracheostomy tube in place History of recurrent ventilator dependent respiratory failure, secondary to pneumonia and mucous plugging History of sepsis, secondary to pneumonia. Crohn's disease, with previous complication of bowel perforation s/p colectomy and diverting ileostomy. The patient also has had previous history of abdominal wall bleeding there is currently inactive and stable. The patient has a high output ileostomy Tracheobronchomalacia History of DVT History of CVA/TIA Right below the knee amputation History of asystole/cardiac arrest, 2021 Plan: Continue ventilator support Switch this patient to a PSV of 5 and a PEEP of 5 and this will be done on a daily basis. Bronchoscopy was done. No significant respiratory secretions. I am concerned that the patient has significant neuromuscular weakness affecting his ability to come off the mechanical ventilator. He may ultimately become permanently dependent on vent support. continue on Avycaz and vancomycin Remains on TPN and lipids Anticoagulated with Lovenox Continue DuoNeb inhalations Discontinue Pulmicort Respules Protonix for GI prophylaxis Wean down propofol and discontinue Progress is slow. May be a good candidate for select specialty. Will continue to follow. Evaluation was done and 33 minutes. Time with Patient: Greater than 30
--- NOTE | 2024-07-07 15:14 | P.PCN ---
Date of Procedure: 07/07/24 Preoperative Diagnosis: Respiratory failure, failure to wean Postoperative Diagnosis: Normal airway examination, scant respiratory secretions and a total of 10 cc of loose secretions were suctioned out, nonpurulent Procedure(s) Performed: Flexible bronchoscopy, therapeutic airway suctioning Anesthesia: MAC Surgeon: Estela Holt Estimated Blood Loss (ml): 0 Pathology: other Condition: critical Disposition: ICU Operative Findings: This procedure was done in the intensive care unit. The patient was given a total of 100 mg of IV propofol an additional 50 mg was given during the procedure. A flexible disposable bronchoscope was inserted through the tracheostomy tube and it was advanced into the lower trachea. Noted the tip of the tracheostomy tube was in the mid trachea. There was no evidence of any tracheal stenosis. A full airway inspection was done. Visualized airways include the distal trachea, bilateral mainstem bronchi, right upper lobe bronchus, bronchus intermedius, right middle lobe and the right lower lobe bronchus and the various 10 segments on the right and examination of the left side including the left mainstem bronchus, left upper lobe bronchus and the left lower lobe bronchus and the various 8 segments. Loose liquidy respiratory secretions were identified and those were suctioned out. A total of 10 cc of respiratory secretions were suctioned out. No purulent material. No mucous plugging. Airways were patent. No endobronchial lesions. Mucosa looked healthy. The bronchoscope was removed. The plan is to put the patient back on a pressure support mode of mechanical ventilation and assess his progress.
[2024-07-07] MEDS: LORazepam 2 MG/ML INJ IV PRN (15:52)
--- NOTE | 2024-07-07 16:00 | P.PN ---
Subjective Progress Note Date: 07/07/24 Patient admitted for bilateral cramping due to pneumonia gram-negative organism is not identified yet patient had Pseudomonas in the past patient underwent bronchoscopy patient remains on mechanical ventilation broad-spectrum antibiotics patient has a tracheostomy in place. Patient underwent bronchoalveolar lavage. 06/26/2024 Patient is evaluated in the ICU. Remains on the mechanical ventilator with FiO2 of 40%. Sputum culture reveals pseudomonas aeruginosa, corynebacterium striatum group. He remains on antibiotics with IV ceftazidime/Avibactam. TPN infusing. Labs today reveal white blood cell count 4.72, hgb 7.6, sodium 135, potassium 4.0, BUN 13, creatinine 0.39. Magnesium 1.9. Triglycerides of 183.00. 06/27/2024 Patient is evaluated in the intensive care unit. He is currently on the trach collar. Awake alert and oriented. Chest xray today shows left lower lobe atelectasis or pneumonia. Per mother at the bedside he was only home [facility] day prior to returning to the hospital. He will likely need to return to the [facility] on DC. Remains on TPN. White blood cell count 5.07, hgb 7.3, sodium 134, BUN 11, creatinine 0.34. 06/28/2024 Patient is eval today in intensive care unit. He is complaining of pain in the right ear manual examination does reveal some erythema of the canal and eardrum. We will add eardrops and monitor for improvement in symptoms. Patient is awake alert oriented he has tolerated trach collar. Chest x-ray today reveals a developing left lower lobe infiltrate with a small effusion which may be present. He continues on IV meropenem for positive sputum and bronchial washings of Pseudomonas aeruginosa and corynebacterium striatum group. Labs today reveal a white blood cell count of 5.55, hemoglobin 7.4, sodium 135, BUN of 11 creatinine 0.40. 06/29/2024 Patient is evaluated in the intensive care unit he is currently downgraded and pending a bed on the medical floor. Patient is ready for discharge and did discuss with the patient that he needs to follow-up with his family and I will also talk with his family regarding discharge planning if he is able to discharge home versus subacute rehab versus LTAC. Patient is adamant that that he will not [facility]. Due to his complex medical needs including PEG tube, TPN, his tracheostomy, ileostomy, and IV antibiotics he may not be a candidate for subacute rehabilitation but referrals were placed by social work. He does state that his right ear feels better after being initiated on antibiotic eardrops and they will be continued at this time. His labs today reveal a white blood cell count of 5.50, hemoglobin 7.6, sodium level of 135, BUN of 9 creatinine 0.37 and magnesium level of 1.8. 06/30/2024 Patient is evaluated in follow-up in the medical floor. He has no acute complaints at this time. He does report again mild improvement in his right ear pain and he continues with the eardrops. Had a long discussion with patient's son over and over the phone regarding discharge planning. Alan is apprehensive about allowing child to return home due to his complex medical needs and somebody having to stay up with him overnight for suctioning and trach care. Open would like him to return to the [facility] for at least another month or so until his other brother comes home from college. Will need to follow-up with patient tomorrow regarding this and awaiting other referrals for any other excepting facility as patient really does not want to return to the [facility]. 07/01/2024 Patient evaluated today resting in bed. Per nursing he was lethargic overnight but seems improved today. Patient is currently a bed at a subacute rehab [facility] and social work following. He remains on IV ceftazidime/avibactam. Chest x-ray today Reveals stable chest with left-sided pleural effusion. There is opacification of the right lung base and left lung base. Patient is on TPN. Patient is afebrile, heart rate 53, blood pressure 144/67, 100% on trach collar. 07/02/2024 Patient evaluated today in follow up. No acute complaints at this time. Still pending accepting rehab facility. Remains on the IV ceftazidime/avibactam. 07/03/2024 Patient evaluated today in follow up was downgraded to the general medical floor. Report the right ear pain and fullness is better. He continues on IV ceftazidime/Avibactam and IV vancomycin for the pseudomonas in the sputum. No accepting facility so far. He may need to remain hospitalized while he finishes course of antibiotics. He is tolerating the trach collar. 07/04. Patient seen and examined. Patient was a teamed this morning for decrease responsiveness, was found to be hypoxemic, was transferred back to ICU and was placed on ventilator. Patient is currently on breathing treatments. Hemoglobin this morning was 6.8, 1 unit of packed red blood cells ordered. Patient has been started on Levophed 07/05. Patient seen and examined. Patient is currently off sedation, opening eyes. Patient received 2 units of packed red blood cells in total since yesterday, hemoglobin improved to8.3, WBC 6.03, platelet count 229, sodium 137, potassium 3.8, BUN 18, creatinine 0.34, glucose 143, phosphorus 1.8. Critical care planning to trial CPAP 07/06/2024 Patient evaluated today in the intensive care unit. He is awake alert and responsive, he is able to answer simple questions. Under bronchoscopy on 07/04 with preliminary cultures showing pseudomonas aeruginosa; corynebacterium striatum group. Chest xray shows small bilateral pleural effusions. Remains on IV antibiotics. He is on the mechanical ventilator. Hemoglobin better today at 8.5. Sodium of 135, potassium 3.4. 07/07/2024 Patient remains in the intensive care unit. He is awake alert and responsive he is able to talk with a tracheostomy in place. His repeat cultures from the bronchoscopy are showing Pseudomonas aeruginosa and Corynebacterium stratum group. He continues on antibiotics in the form of IV ADK as as well as IV vancomycin. Patient remains off pressor support at this time. ID is following closely. Chest x-ray today reveals a bilateral trace pleural effusion. Patient underwent flexible bronchoscopy today and there was no evidence of mucous plugging or thick secretions. 10 cc of respiratory secretions were suctioned out. Patient had no evidence of tracheal stenosis during the procedure. Has been difficult to wean from the vent. Review of Systems Constitutional: Denied any fatigue denied any fever. Cardio vascular: denied any chest pain, palpitations Gastrointestinal: denied any nausea, vomiting, diarrhea Pulmonary: Denied any shortness of breath cough Neurologic denied any new focal deficits All inpatient medications were reviewed and appropriate changes in these medica tions as dictated in the interval history and assessment and plan. PHYSICAL EXAMINATION: GENERAL: Patient is awake alert oriented x3. HEENT: Pupils are round and equally reacting to light. EOMI. No scleral icterus. No conjunctival pallor. Normocephalic, atraumatic. No pharyngeal erythema. No thyromegaly. Tracheostomy in place. CARDIOVASCULAR: S1 and S2 present. No murmurs, rubs, or gallops. PULMONARY: Chest is clear to auscultation, no wheezing or crackles. ABDOMEN: Soft, nontender, nondistended, normoactive bowel sounds. No palpable organomegaly. MUSCULOSKELETAL: No joint swelling or deformity. EXTREMITIES: No cyanosis, clubbing, or pedal edema. NEUROLOGICAL: Sedated at this time SKIN: No rashes. Assessment and plan Bilateral gram-negative pneumonia possibility of aspiration infectious disease and multiple other consultants are following the patient - Acute respiratory failure requiring mechanical ventilation status post bronchoalveolar lavage; cultures growing pseudomonas and corynebacterium. Repeat bronch reveals same cultures. pending microsensitivities. - Crohn's disease with ileostomy in the past patient is presently on TPN - Anemia with no active GI bleed s/p 3 units of PRBC - Right sided otitis media completed gtts. 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 Repeat bronchoscopy with BAL 07/04/2024 pending final cultures. Patient underwent bronchoscopy again on 07/07/2024 Status post 3 unit of packed red blood cell Continue Lovenox Continue on Avycaz and vancomycin Remains on TPN and lipids Continue DuoNeb inhalations Pulmonology following ID following Repeat blood work Social work following for DC planning when medically stable. Patient will not be able to return to an LTAC as patient does not have any more Medicare days remaining. Has a patient pending review and end date for his IV AV cast. At this time he does remain on the mechanical ventilator though. Can stop the Ciprodex eardrops. The impression and plan of care has been dictated by Coral Medina, Nurse Practitioner as directed. Dr. Mo MD I have performed a history and physical examination and medical decision making of this patient, discussed the same with the dictator, and agree with the dictators assessment and plan as written, documented as a scribe. Based on total visit time, I have performed more than 50% of this visit. Objective - Vital Signs Vital signs: Vital Signs Temp 97.8 F 07/07/24 08:00 Pulse 78 07/07/24 09:00 Resp 22 07/07/24 09:00 BP 110/66 07/07/24 09:00 Pulse Ox 100 07/07/24 09:00 FiO2 40 07/07/24 08:45 Intake & Output 07/06/24 07/07/24 07/07/24 18:59 06:59 18:59 Intake Total 3134.733 1402 292 Output Total 2049 9299 775 Balance 1084.733 -473 -483 Weight 99.8 kg Intake: IV 1870 467 207 0.9 Normal Saline @ KVO 220 200 40 Ceftazidime/Avibactam 2.5 50 100 gm In Sodium Chloride 0. 9% 100 ml @ 50 mls/hr IVPB Q8H [facility] Rx#: [id number] Magnesium Sulfate-D5w Pmx 100 1 gm In Dextrose/Water 1 100ml.bag @ 100 mls/hr IVPB ONCE ONE Rx#: [id number] Mvi, Adult No.4 with Vit 850 K 10 ml Trace (Conc-1Ml/ Dose) 1 ml Sodium Chloride 4Meq/ml Vial 48 meq Potassium Chloride 26 meq Calcium Gluconate 1 gm Magnesium Sulfate gm 1 gm Sodium Phosphate 27 mmol In Amino Acids 5 %/ Dextrose 20 % 1,000 ml @ 85 mls/hr IV .BY DURATION [facility] Rx#:[id number] Potassium Chloride 20 meq 50 In Water For Injection 1 100ml.bag @ 50 mls/hr IVPB ONCE ONE Rx#: [id number] Potassium Chloride 20 meq 100 In Water For Injection 1 100ml.bag @ 50 mls/hr IVPB Q2H [facility] Rx#: [id number] Vancomycin 1,750 mg In 500 167 167 Sodium Chloride 0.9% 500 ml 500 ml @ 167 mls/hr IVPB Q16H [facility] Rx#: [id number] Intake, IV Titration 1094.733 0 Amount Mvi, Adult No.4 with Vit 1001.583 0 K 10 ml Trace (Conc-1Ml/ Dose) 1 ml Sodium Chloride 4Meq/ml Vial 48 meq Potassium Chloride 26 meq Calcium Gluconate 1 gm Magnesium Sulfate gm 1 gm Sodium Phosphate 27 mmol In Amino Acids 5 %/ Dextrose 20 % 1,000 ml @ 85 mls/hr IV .BY DURATION [facility] Rx#:[id number] propofoL 1,000 mg In 93.15 Empty Bag 1 bag @ 15 MCG/ KG/MIN 8.28 mls/hr IV . Q12H5M [facility] Rx#:[id number] TPN/PPN 170 935 85 Mvi, Adult No.4 with Vit 935 85 K 10 ml Trace (Conc-1Ml/ Dose) 1 ml Sodium Chloride 4Meq/ml Vial 48 meq Potassium Chloride 26 meq Calcium Gluconate 1 gm Magnesium Sulfate gm 1 gm Sodium Phosphate 27 mmol In Amino Acids 5 %/ Dextrose 20 % 1,000 ml @ 85 mls/hr IV .BY DURATION [facility] Rx#:[id number] Sodium Chloride 4Meq/ml 170 Vial 48 meq Potassium Chloride 26 meq Calcium Gluconate 1 gm Magnesium Sulfate gm 1 gm Sodium Phosphate 27 mmol In Amino Acids 5 %/Dextrose 20 % 1,000 ml @ 85 mls/hr IV .BY DURATION [facility] Rx#: [id number] Output: Urine 1600 1325 175 Stool 450 550 600 Other: Voiding Method Indwelling Catheter Indwelling Catheter Indwelling Catheter ABP, PAP, CO, CI - Last Documented Arterial Blood Pressure 150/71 - Labs CBC & Chem 7: 07/07/24 05:03 07/07/24 05:03 Labs: Abnormal Lab Results - Last 24 Hours (Table) 07/06/24 07/06/24 07/07/24 Range/Units 12:06 17:27 00:20 RBC (4.40-5.60) 10*6/uL Hgb (13.0-17.0) g/dL Hct (39.6-50.0) % MCH (27.0-32.0) pg MCHC (32.0-37.0) g/dL ABG HCO3 (21-25) mmol/L ABG Total CO2 (19-24) mmol/L ABG O2 Saturation (94-97) % Hemoglobin (13.0-17.5) gm/dL Sodium (137-145) mmol/L Creatinine (0.66-1.25) mg/dL Glucose (74-99) mg/dL POC Glucose (mg/dL) 146 H 124 H 116 H (70-110) mg/dL 07/07/24 07/07/24 07/07/24 Range/Units 05:03 05:03 05:32 RBC 3.46 L (4.40-5.60) 10*6/uL Hgb 8.9 L (13.0-17.0) g/dL Hct 29.6 L (39.6-50.0) % MCH 25.7 L (27.0-32.0) pg MCHC 30.1 L (32.0-37.0) g/dL ABG HCO3 28 H (21-25) mmol/L ABG Total CO2 29 H (19-24) mmol/L ABG O2 Saturation 98.7 H (94-97) % Hemoglobin 9.4 L (13.0-17.5) gm/dL Sodium 136 L (137-145) mmol/L Creatinine 0.31 L (0.66-1.25) mg/dL Glucose 117 H (74-99) mg/dL POC Glucose (mg/dL) (70-110) mg/dL 07/07/24 Range/Units 05:38 RBC (4.40-5.60) 10*6/uL Hgb (13.0-17.0) g/dL Hct (39.6-50.0) % MCH (27.0-32.0) pg MCHC (32.0-37.0) g/dL ABG HCO3 (21-25) mmol/L ABG Total CO2 (19-24) mmol/L ABG O2 Saturation (94-97) % Hemoglobin (13.0-17.5) gm/dL Sodium (137-145) mmol/L Creatinine (0.66-1.25) mg/dL Glucose (74-99) mg/dL POC Glucose (mg/dL) 112 H (70-110) mg/dL Microbiology - Last 24 Hours (Table) 07/04/24 08:45 Gram Stain - Final Bronchial Washings - Random Bronchial Washings Culture - Final Pseudomonas aeruginosa Corynebacterium striatum group 07/04/24 08:45 Acid Fast Bacilli Smear - Preliminary Bronchoalviolar Lavage - Left 07/05/24 05:43 Blood Culture - Preliminary Blood Assessment and Plan Time with Patient: Less than 30
[2024-07-07 17:56] LABS: Glucose,Whole Blood 131 mg/dL (70-110)
[2024-07-07 23:55] LABS: Glucose,Whole Blood 107 mg/dL (70-110)
[2024-07-08] MEDS: 1: MVI, ADULT NO.4 WITH VIT K 10 ML, TRACE (CONC-1ML/DOSE) 1 ML, SODIUM CHLORIDE 4MEQ/ML IV SCH (01:17)
[2024-07-08 04:46] LABS: ABG HCO3 29 mmol/L (21-25); ABG PCO2 43 mmHg (35-45); ABG PH 7.43 (7.35-7.45); ABG PO2 149 mmHg (83-108); ABG TCO2 30 mmol/L (19-24); Allen Test Performed? no
[2024-07-08 04:47] LABS: Glucose,Whole Blood 110 mg/dL (70-110)
[2024-07-08 05:46] LABS: Basophils # (A) 0.05 10*3/uL (0.00-0.10); Basophils % (A) 0.9 %; Eosinophils # (A) 0.18 10*3/uL (0.04-0.35); Eosinophils % (A) 3.1 %; HCT 30.7 % (39.6-50.0); HGB 9.1 g/dL (13.0-17.0); Lymphocytes # (A) 1.56 10*3/uL (0.90-5.00); Lymphocytes % (A) 27.2 %; MCH 25.6 pg (27.0-32.0); MCHC 29.6 g/dL (32.0-37.0); MCV 86.5 fL (80.0-97.0); Monocytes # (A) 0.47 10*3/uL (0.20-1.00); Monocytes % (A) 8.2 %; Neutrophils # (A) 3.47 10*3/uL (1.80-7.70); Neutrophils % (A) 60.4 %; Platelet Count 253 10*3/uL (140-440); RBC 3.55 10*6/uL (4.40-5.60); RDW 16.5 % (11.5-14.5); WBC 5.74 10*3/uL (4.50-10.00)
[2024-07-08 06:01] LABS: African American GFR (CKD) >90 (>60 ml/min/1.73 sqM); Anion Gap 8 mmol/L; Blood Urea Nitrogen 13 mg/dL (9-20); Calcium 8.9 mg/dL (8.4-10.2); Carbon Dioxide 25 mmol/L (22-30); Chloride 102 mmol/L (98-107); Glucose 104 mg/dL (74-99); Magnesium 1.9 mg/dL (1.6-2.3); Non-African American GFR(CKD) >90 (>60 ml/min/1.73 sqM); Phosphorus 3.1 mg/dL (2.5-4.5); Potassium 4.3 mmol/L (3.5-5.1); Sodium 135 mmol/L (137-145)
--- NOTE | 2024-07-08 08:13 | XR ---
EXAMINATION TYPE: XR chest 1V portable DATE OF EXAM: 07/08/2024 5:33 AM COMPARISON: Multiple radiographs, with the most recent on 07/07/2024 TECHNIQUE: XR chest 1V portable Portable AP radiograph of the chest. CLINICAL INDICATION:Male, 49 years old with history of mechanical ventilation; FINDINGS: Lungs/Pleura: Low lung volumes are present. There is no evidence of pleural effusion, focal consolida tion, or pneumothorax. Pulmonary vascularity: Mild pulmonary vascular congestion. Heart/mediastinum: Cardiomediastinal silhouette is unremarkable. Musculoskeletal: No acute osseous pathology. Other findings: Surgical clips within the right subclavicular region. Lines/Tubes: Tracheostomy cannula in stable position. Left IJ central venous catheter with distal tip in stable position at the superior cavoatrial junctio n. IMPRESSION: 1. Low lung volumes with cardiomegaly and mild pulmonary vascular congestion. Correlate with BNP for congestive heart failure. 2. Stable support lines and tubes. [facility], , 07/08/2024 8:10 AM
--- NOTE | 2024-07-08 08:16 | P.PN ---
Subjective Progress Note Date: 07/06/24 Principal diagnosis: Reason for follow-up abnormal chest x-ray question pneumonia Patient is a 49-year-old male with a past medical history significant for chron's disease in this patient who did have multiple surgeries and complication as far as abdominal surgeries did have history of recurrent pneumonia vent dependent respiratory failure currently on a trach collar CVA TIA patient has been brought into the hospital concerning for chest pain patient also have abnormal chest x-ray concern for possible pneumonia prompting this consultation. On today's evaluation that is 07/06/2024, patient has been afebrile, patient is breathing comfortably and is currently on 40% FiO2 no chest pain no nausea no vomiting or any other changes reported. Patient white count 6.36, creatinine is 0.33 Objective - Vital Signs Vital signs: Vital Signs Temp 98.3 F 07/06/24 12:00 Pulse 76 07/06/24 12:03 Resp 31 H 07/06/24 12:00 BP 107/56 07/06/24 12:00 Pulse Ox 98 07/06/24 12:00 FiO2 40 07/06/24 12:00 Intake & Output 07/05/24 07/06/24 07/06/24 18:59 06:59 18:59 Intake Total 7772.827 2853.624 1849.733 Output Total 860 1405 1120 Balance 111.819 1283.624 729.733 Weight 100.1 kg Intake: IV 1420 410 585 0.9 Normal Saline @ KVO 190 140 80 Ceftazidime/Avibactam 2.5 100 100 gm In Sodium Chloride 0. 9% 100 ml @ 50 mls/hr IVPB Q8H [facility] Rx#: [id number] Magnesium Sulfate-D5w Pmx 100 1 gm In Dextrose/Water 1 100ml.bag @ 100 mls/hr IVPB ONCE ONE Rx#: [id number] Mvi, Adult No.4 with Vit 255 K 10 ml Trace (Conc-1Ml/ Dose) 1 ml Sodium Chloride 4Meq/ml Vial 48 meq Potassium Chloride 26 meq Calcium Gluconate 1 gm Magnesium Sulfate gm 1 gm Sodium Phosphate 27 mmol In Amino Acids 5 %/ Dextrose 20 % 1,000 ml @ 85 mls/hr IV .BY DURATION [facility] Rx#:[id number] Potassium Chloride 20 meq 50 In Water For Injection 1 100ml.bag @ 50 mls/hr IVPB ONCE ONE Rx#: [id number] Potassium Chloride 20 meq 100 In Water For Injection 1 100ml.bag @ 50 mls/hr IVPB Q2H [facility] Rx#: [id number] Sodium Chloride 4Meq/ml 935 170 Vial 48 meq Potassium Chloride 26 meq Calcium Gluconate 1 gm Magnesium Sulfate gm 1 gm Sodium Phosphate 21 mmol In Amino Acids 5 %/Dextrose 20 % 1,000 ml @ 85 mls/hr IV .BY DURATION [facility] Rx#: [id number] Sodium Phosphate 30 mmol 195 In Dextrose 5% in Water 250 ml @ 65 mls/hr IVPB ONCE ONE Rx#:[id number] Intake, IV Titration 84.732 4135.676 0615.733 Amount Mvi, Adult No.4 with Vit 1001.583 K 10 ml Trace (Conc-1Ml/ Dose) 1 ml Sodium Chloride 4Meq/ml Vial 48 meq Potassium Chloride 26 meq Calcium Gluconate 1 gm Magnesium Sulfate gm 1 gm Sodium Phosphate 27 mmol In Amino Acids 5 %/ Dextrose 20 % 1,000 ml @ 85 mls/hr IV .BY DURATION [facility] Rx#:[id number] Sodium Chloride 4Meq/ml 1046 Vial 48 meq Potassium Chloride 26 meq Calcium Gluconate 1 gm Magnesium Sulfate gm 1 gm Sodium Phosphate 27 mmol In Amino Acids 5 %/Dextrose 20 % 1,000 ml @ 85 mls/hr IV .BY DURATION [facility] Rx#: [id number] propofoL 1,000 mg In 84.732 75.624 93.15 Empty Bag 1 bag @ 15 MCG/ KG/MIN 8.28 mls/hr IV . Q12H5M [facility] Rx#:[id number] TPN/PPN 85 1061 170 Fat Emulsion 20% 250 ml @ 126 20.833 mls/hr IV Q72H [facility] Rx#:[id number] Sodium Chloride 4Meq/ml 85 Vial 48 meq Potassium Chloride 26 meq Calcium Gluconate 1 gm Magnesium Sulfate gm 1 gm Sodium Phosphate 21 mmol In Amino Acids 5 %/Dextrose 20 % 1,000 ml @ 85 mls/hr IV .BY DURATION [facility] Rx#: [id number] Sodium Chloride 4Meq/ml 935 170 Vial 48 meq Potassium Chloride 26 meq Calcium Gluconate 1 gm Magnesium Sulfate gm 1 gm Sodium Phosphate 27 mmol In Amino Acids 5 %/Dextrose 20 % 1,000 ml @ 85 mls/hr IV .BY DURATION [facility] Rx#: [id number] Output: Urine 860 805 670 Stool 600 450 Other: Voiding Method Indwelling Catheter Indwelling Catheter Indwelling Catheter ABP, PAP, CO, CI - Last Documented Arterial Blood Pressure 140/68 - Exam GENERAL DESCRIPTION: Middle-age male intubated with a trach RESPIRATORY SYSTEM: Unlabored breathing , coarse breath sounds bilaterally HEART: S1 S2 regular rate and rhythm , ABDOMEN: Soft , no tenderness EXTREMITIES: Swelling to the leg no redness - Labs CBC & Chem 7: 07/08/24 04:50 07/08/24 04:50 Labs: Abnormal Lab Results - Last 24 Hours (Table) 07/04/24 07/05/24 07/05/24 Range/Units 08:45 13:09 19:04 RBC (4.40-5.60) 10*6/uL Hgb (13.0-17.0) g/dL Hct (39.6-50.0) % MCH (27.0-32.0) pg MCHC (32.0-37.0) g/dL ABG HCO3 (21-25) mmol/L ABG Total CO2 (19-24) mmol/L ABG O2 Saturation (94-97) % Hemoglobin (13.0-17.5) gm/dL Sodium (137-145) mmol/L Potassium (3.5-5.1) mmol/L Creatinine (0.66-1.25) mg/dL Glucose (74-99) mg/dL POC Glucose (mg/dL) 129 H 124 H (70-110) mg/dL Calcium (8.4-10.2) mg/dL Fluid Appearance Blood Tinged A (Clear) 07/06/24 07/06/24 07/06/24 Range/Units 00:09 04: 04:25 RBC 3.39 L (4.40-5.60) 10*6/uL Hgb 8.5 L (13.0-17.0) g/dL Hct 29.0 L (39.6-50.0) % MCH 25.1 L (27.0-32.0) pg MCHC 29.3 L (32.0-37.0) g/dL ABG HCO3 (21-25) mmol/L ABG Total CO2 (19-24) mmol/L ABG O2 Saturation (94-97) % Hemoglobin (13.0-17.5) gm/dL Sodium 135 L (137-145) mmol/L Potassium 3.4 L (3.5-5.1) mmol/L Creatinine 0.33 L (0.66-1.25) mg/dL Glucose 132 H (74-99) mg/dL POC Glucose (mg/dL) 122 H (70-110) mg/dL Calcium 8.2 L (8.4-10.2) mg/dL Fluid Appearance (Clear) 07/06/24 07/06/24 07/06/24 Range/Units 05:17 06:15 12:06 RBC (4.40-5.60) 10*6/uL Hgb (13.0-17.0) g/dL Hct (39.6-50.0) % MCH (27.0-32.0) pg MCHC (32.0-37.0) g/dL ABG HCO3 28 H (21-25) mmol/L ABG Total CO2 29 H (19-24) mmol/L ABG O2 Saturation 98.5 H (94-97) % Hemoglobin 8.5 L (13.0-17.5) gm/dL Sodium (137-145) mmol/L Potassium (3.5-5.1) mmol/L Creatinine (0.66-1.25) mg/dL Glucose (74-99) mg/dL POC Glucose (mg/dL) 128 H 146 H (70-110) mg/dL Calcium (8.4-10.2) mg/dL Fluid Appearance (Clear) Microbiology - Last 24 Hours (Table) 07/04/24 08:45 Gram Stain - Preliminary Bronchial Washings - Random Assessment and Plan (1) Abnormal chest x-ray Current Visit: Yes Status: Acute Code(s): R93.89 - ABNORMAL FINDINGS ON DX IMAGING OF OTH BODY STRUCTURES SNOMED Code(s): 160031908 (2) Penicillin allergy Current Visit: Yes Status: Acute Code(s): Z88.0 - ALLERGY STATUS TO PENICILLIN SNOMED Code(s): 47535006 (3) Pneumonia Current Visit: No Status: Acute Code(s): J18.9 - PNEUMONIA, UNSPECIFIED ORGANISM SNOMED Code(s): 536963274 (4) Sepsis Current Visit: No Status: Acute Code(s): A41.9 - SEPSIS, UNSPECIFIED ORGANISM SNOMED Code(s): 65516288 Plan: 1patient did have worsening of his respiratory status requiring intubation and transferred to ICU also spiked a fever And did have a heart rate in the 90s medically ready for SIRS/sepsis source likely left lower lobe pneumonia concerning for possible gram-negative in this patient who did have Zosyn allergies that would limit the number of antibiotics safe to use. 2patient is status post bronchoscopy lavage as well as sputum culture which grew multidrug-resistant Pseudomonas aeruginosa resistant to meropenem sensitive to Zosyn however the patient is allergic to Zosyn 3patient did have resolution of his fever with repeat cultures currently pending we will treat with vancomycin pharmacy to dose and Avycaz pending finalization of repeat culture Mother at the bedside question answered Dictation was produced using 248 [employer] dictation software. please excuse any grammatical, word or spelling errors. Time with Patient: Less than 30
--- NOTE | 2024-07-08 08:18 | P.PN ---
Subjective Progress Note Date: 07/07/24 Principal diagnosis: Reason for follow-up pneumonia Patient is a 49-year-old male with a past medical history significant for chron's disease in this patient who did have multiple surgeries and complication as far as abdominal surgeries did have history of recurrent pn eumonia vent dependent respiratory failure currently on a trach collar CVA TIA patient has been brought into the hospital concerning for chest pain patient also have abnormal chest x-ray concern for possible pneumonia prompting this consultation. On today's evaluation that is 07/07/2024, Patient did have improvement in her fever pattern with a temperature of 100 F this morning patient remains to be intubated on the vent FiO2 is currently at 60% no significant purulent secretion through the ET or any other changes reported by the nursing staff. Patient white count is slightly up to 14.58 today creatinine 0.36 Objective - Vital Signs Vital signs: Vital Signs Temp 97.6 F 07/07/24 12:00 Pulse 85 07/07/24 14:00 Resp 28 H 07/07/24 14:00 BP 122/66 07/07/24 14:00 Pulse Ox 99 07/07/24 14:00 FiO2 40 07/07/24 12:39 Intake & Output 07/06/24 07/07/24 07/07/24 18:59 06:59 18:59 Intake Total 3134.733 2448 1027 Output Total 2050 1875 1320 Balance 1084.733 573 -293 Weight 99.8 kg 99.8 kg Intake: IV 1870 467 427 0.9 Normal Saline @ KVO 220 200 160 Ceftazidime/Avibactam 2.5 50 100 gm In Sodium Chloride 0. 9% 100 ml @ 50 mls/hr IVPB Q8H [facility] Rx#: [id number] Magnesium Sulfate-D5w Pmx 100 1 gm In Dextrose/Water 1 100ml.bag @ 100 mls/hr IVPB ONCE ONE Rx#: [id number] Mvi, Adult No.4 with Vit 850 K 10 ml Trace (Conc-1Ml/ Dose) 1 ml Sodium Chloride 4Meq/ml Vial 48 meq Potassium Chloride 26 meq Calcium Gluconate 1 gm Magnesium Sulfate gm 1 gm Sodium Phosphate 27 mmol In Amino Acids 5 %/ Dextrose 20 % 1,000 ml @ 85 mls/hr IV .BY DURATION [facility] Rx#:[id number] Potassium Chloride 20 meq 50 In Water For Injection 1 100ml.bag @ 50 mls/hr IVPB ONCE ONE Rx#: [id number] Potassium Chloride 20 meq 100 100 In Water For Injection 1 100ml.bag @ 50 mls/hr IVPB Q2H [facility] Rx#: [id number] Vancomycin 1,750 mg In 500 167 167 Sodium Chloride 0.9% 500 ml 500 ml @ 167 mls/hr IVPB Q16H [facility] Rx#: [id number] Intake, IV Titration 7637.896 7948 Amount Mvi, Adult No.4 with Vit 1001.583 0 K 10 ml Trace (Conc-1Ml/ Dose) 1 ml Sodium Chloride 4Meq/ml Vial 48 meq Potassium Chloride 26 meq Calcium Gluconate 1 gm Magnesium Sulfate gm 1 gm Sodium Phosphate 27 mmol In Amino Acids 5 %/ Dextrose 20 % 1,000 ml @ 85 mls/hr IV .BY DURATION [facility] Rx#:[id number] Sodium Chloride 4Meq/ml 1046 Vial 48 meq Potassium Chloride 26 meq Calcium Gluconate 1 gm Magnesium Sulfate gm 1 gm Sodium Phosphate 27 mmol In Amino Acids 5 %/Dextrose 20 % 1,000 ml @ 85 mls/hr IV .BY DURATION [facility] Rx#: [id number] propofoL 1,000 mg In 93.15 Empty Bag 1 bag @ 15 MCG/ KG/MIN 8.28 mls/hr IV . Q12H5M [facility] Rx#:[id number] TPN/PPN 170 935 600 Mvi, Adult No.4 with Vit 935 600 K 10 ml Trace (Conc-1Ml/ Dose) 1 ml Sodium Chloride 4Meq/ml Vial 48 meq Potassium Chloride 26 meq Calcium Gluconate 1 gm Magnesium Sulfate gm 1 gm Sodium Phosphate 27 mmol In Amino Acids 5 %/ Dextrose 20 % 1,000 ml @ 85 mls/hr IV .BY DURATION [facility] Rx#:[id number] Sodium Chloride 4Meq/ml 170 Vial 48 meq Potassium Chloride 26 meq Calcium Gluconate 1 gm Magnesium Sulfate gm 1 gm Sodium Phosphate 27 mmol In Amino Acids 5 %/Dextrose 20 % 1,000 ml @ 85 mls/hr IV .BY DURATION [facility] Rx#: [id number] Output: Urine 1600 1325 720 Stool 450 550 600 Other: Voiding Method Indwelling Catheter Indwelling Catheter Indwelling Catheter ABP, PAP, CO, CI - Last Documented Arterial Blood Pressure 132/65 - Exam GENERAL DESCRIPTION: Middle-age male intubated with a trach RESPIRATORY SYSTEM: Unlabored breathing , coarse breath sounds bilaterally HEART: S1 S2 regular rate and rhythm , ABDOMEN: Soft , no tenderness EXTREMITIES: Swelling to the leg no redness - Labs CBC & Chem 7: 07/08/24 04:50 07/08/24 04:50 Labs: Abnormal Lab Results - Last 24 Hours (Table) 07/06/24 07/07/24 07/07/24 Range/Units 17:27 00:20 05:03 RBC (4.40-5.60) 10*6/uL Hgb (13.0-17.0) g/dL Hct (39.6-50.0) % MCH (27.0-32.0) pg MCHC (32.0-37.0) g/dL ABG HCO3 (21-25) mmol/L ABG Total CO2 (19-24) mmol/L ABG O2 Saturation (94-97) % Hemoglobin (13.0-17.5) gm/dL Sodium 136 L (137-145) mmol/L Creatinine 0.31 L (0.66-1.25) mg/dL Glucose 117 H (74-99) mg/dL POC Glucose (mg/dL) 124 H 116 H (70-110) mg/dL 07/07/24 07/07/24 07/07/24 Range/Units 05:03 05:32 05:38 RBC 3.46 L (4.40-5.60) 10*6/uL Hgb 8.9 L (13.0-17.0) g/dL Hct 29.6 L (39.6-50.0) % MCH 25.7 L (27.0-32.0) pg MCHC 30.1 L (32.0-37.0) g/dL ABG HCO3 28 H (21-25) mmol/L ABG Total CO2 29 H (19-24) mmol/L ABG O2 Saturation 98.7 H (94-97) % Hemoglobin 9.4 L (13.0-17.5) gm/dL Sodium (137-145) mmol/L Creatinine (0.66-1.25) mg/dL Glucose (74-99) mg/dL POC Glucose (mg/dL) 112 H (70-110) mg/dL 07/07/24 Range/Units 11:52 RBC (4.40-5.60) 10*6/uL Hgb (13.0-17.0) g/dL Hct (39.6-50.0) % MCH (27.0-32.0) pg MCHC (32.0-37.0) g/dL ABG HCO3 (21-25) mmol/L ABG Total CO2 (19-24) mmol/L ABG O2 Saturation (94-97) % Hemoglobin (13.0-17.5) gm/dL Sodium (137-145) mmol/L Creatinine (0.66-1.25) mg/dL Glucose (74-99) mg/dL POC Glucose (mg/dL) 116 H (70-110) mg/dL Microbiology - Last 24 Hours (Table) 07/05/24 05:43 Blood Culture - Preliminary Blood 07/04/24 08:45 Gram Stain - Final Bronchial Washings - Random Bronchial Washings Culture - Final Pseudomonas aeruginosa Corynebacterium striatum group 07/04/24 08:45 Acid Fast Bacilli Smear - Preliminary Bronchoalviolar Lavage - Left Assessment and Plan (1) Abnormal chest x-ray Current Visit: Yes Status: Acute Code(s): R93.89 - ABNORMAL FINDINGS ON DX IMAGING OF OTH BODY STRUCTURES SNOMED Code(s): 605530136 (2) Penicillin allergy Current Visit: Yes Status: Acute Code(s): Z88.0 - ALLERGY STATUS TO PENICILLIN SNOMED Code(s): 76810986 (3) Pneumonia Current Visit: No Status: Acute Code(s): J18.9 - PNEUMONIA, UNSPECIFIED ORGANISM SNOMED Code(s): 440298477 (4) Sepsis Current Visit: No Status: Acute Code(s): A41.9 - SEPSIS, UNSPECIFIED ORGANISM SNOMED Code(s): 67054819 Plan: 1patient did have worsening of his respiratory status requiring intubation and transferred to ICU also spiked a fever And did have a heart rate in the 90s medically ready for SIRS/sepsis source likely left lower lobe pneumonia concerning for possible gram-negative in this patient who did have Zosyn allergies that would limit the number of antibiotics safe to use. 2patient is status post bronchoscopy lavage as well as sputum culture which grew multidrug-resistant Pseudomonas aeruginosa resistant to meropenem sensitive to Zosyn however the patient is allergic to Zosyn 3patient did have resolution of his fever, white count has been normal with repeat cultures currently pending 4patient is currently being treated with vancomycin pharmacy to dose and Avycaz pending finalization of repeat culture Mother question answered Dictation was produced using [employer] dictation software. please excuse any grammatical, word or spelling errors. Time with Patient: Less than 30
[2024-07-08 12:16] LABS: Glucose,Whole Blood 111 mg/dL (70-110)
--- NOTE | 2024-07-08 12:34 | P.PN ---
Subjective Progress Note Date: 07/08/24 Principal diagnosis: Reason for follow-up pneumonia Patient is a 49-year-old male with a past medical history significant for chron's disease in this patient who did have multiple surgeries and complication as far as abdominal surgeries did have history of recurrent pn eumonia vent dependent respiratory failure currently on a trach collar CVA TIA patient has been brought into the hospital concerning for chest pain patient also have abnormal chest x-ray concern for possible pneumonia prompting this consultation. On today's evaluation that is 07/08/2024,the patient remains to be afebrile the patient is on the vent through the trach with FiO2 40% the patient is awake and alert this morning as mentioned feeling better no chest pain or worsening secretion through the trach on and the changes reported. Patient white count is 5.74, creatinine 0.29 bronchoscopy culture currently pending Objective - Vital Signs Vital signs: Vital Signs Temp 98.8 F 07/08/24 08:00 Pulse 76 07/08/24 11:00 Resp 24 07/08/24 11:00 BP 109/54 07/08/24 11:00 Pulse Ox 96 07/08/24 11:00 FiO2 40 07/08/24 11:46 Intake & Output 07/07/24 07/08/24 07/08/24 18:59 06:59 18:59 Intake Total 1322 1195 425 Output Total 2395 800 230 Balance -1073 395 195 Weight 99.8 kg 97.976 kg Intake: IV 527 1195 425 0.9 Normal Saline @ KVO 260 240 100 Mvi, Adult No.4 with Vit 455 325 K 10 ml Trace (Conc-1Ml/ Dose) 1 ml Sodium Chloride 4Meq/ml Vial 48 meq Potassium Chloride 26 meq Calcium Gluconate 1 gm Magnesium Sulfate gm 1 gm Sodium Phosphate 27 mmol In Amino Acids 5 %/ Dextrose 20 % 1,000 ml @ 65 mls/hr IV .BY DURATION [facility] Rx#:[id number] Potassium Chloride 20 meq 100 In Water For Injection 1 100ml.bag @ 50 mls/hr IVPB Q2H [facility] Rx#: [id number] Vancomycin 1,750 mg In 167 500 Sodium Chloride 0.9% 500 ml 500 ml @ 167 mls/hr IVPB Q16H [facility] Rx#: [id number] TPN/PPN 795 Mvi, Adult No.4 with Vit 795 K 10 ml Trace (Conc-1Ml/ Dose) 1 ml Sodium Chloride 4Meq/ml Vial 48 meq Potassium Chloride 26 meq Calcium Gluconate 1 gm Magnesium Sulfate gm 1 gm Sodium Phosphate 27 mmol In Amino Acids 5 %/ Dextrose 20 % 1,000 ml @ 85 mls/hr IV .BY DURATION [facility] Rx#:[id number] Output: Urine 1195 800 230 Stool 1200 Other: Voiding Method Indwelling Catheter Indwelling Catheter Indwelling Catheter ABP, PAP, CO, CI - Last Documented Arterial Blood Pressure 141/68 - Exam GENERAL DESCRIPTION: Middle-age male intubated with a trach RESPIRATORY SYSTEM: Unlabored breathing , coarse breath sounds bilaterally HEART: S1 S2 regular rate and rhythm , ABDOMEN: Soft , no tenderness EXTREMITIES: Swelling to the leg no redness - Labs CBC & Chem 7: 07/08/24 04:50 07/08/24 04:50 Labs: Abnormal Lab Results - Last 24 Hours (Table) 07/07/24 07/08/24 07/08/24 Range/Units 17:55 04:39 04:50 RBC (4.40-5.60) 10*6/uL Hgb (13.0-17.0) g/dL Hct (39.6-50.0) % MCH (27.0-32.0) pg MCHC (32.0-37.0) g/dL ABG pO2 149 H (83-108) mmHg ABG HCO3 29 H (21-25) mmol/L ABG Total CO2 30 H (19-24) mmol/L ABG O2 Saturation 100.0 H (94-97) % Hemoglobin 9.2 L (13.0-17.5) gm/dL Sodium 135 L (137-145) mmol/L Creatinine 0.29 L (0.66-1.25) mg/dL Glucose 104 H (74-99) mg/dL POC Glucose (mg/dL) 131 H (70-110) mg/dL 07/08/24 07/08/24 Range/Units 04:50 12:15 RBC 3.55 L (4.40-5.60) 10*6/uL Hgb 9.1 L (13.0-17.0) g/dL Hct 30.7 L (39.6-50.0) % MCH 25.6 L (27.0-32.0) pg MCHC 29.6 L (32.0-37.0) g/dL ABG pO2 (83-108) mmHg ABG HCO3 (21-25) mmol/L ABG Total CO2 (19-24) mmol/L ABG O2 Saturation (94-97) % Hemoglobin (13.0-17.5) gm/dL Sodium (137-145) mmol/L Creatinine (0.66-1.25) mg/dL Glucose (74-99) mg/dL POC Glucose (mg/dL) 111 H (70-110) mg/dL Microbiology - Last 24 Hours (Table) 07/07/24 09:50 Gram Stain - Preliminary Bronchoalviolar Lavage - Left 07/05/24 05:43 Blood Culture - Preliminary Blood Assessment and Plan (1) Abnormal chest x-ray Current Visit: Yes Status: Acute Code(s): R93.89 - ABNORMAL FINDINGS ON DX IMAGING OF OTH BODY STRUCTURES SNOMED Code(s): 646363514 (2) Penicillin allergy Current Visit: Yes Status: Acute Code(s): Z88.0 - ALLERGY STATUS TO P ENICILLIN SNOMED Code(s): 38765910 (3) Pneumonia Current Visit: No Status: Acute Code(s): J18.9 - PNEUMONIA, UNSPECIFIED ORGANISM SNOMED Code(s): 780637914 (4) Sepsis Current Visit: No Status: Acute Code(s): A41.9 - SEPSIS, UNSPECIFIED ORGANISM SNOMED Code(s): 61183590 Plan: 1patient did have worsening of his respiratory status requiring intubation and transferred to ICU also spiked a fever And did have a heart rate in the 90s medically ready for SIRS/sepsis source likely left lower lobe pneumonia concerning for possible gram-negative in this patient who did have Zosyn allergies that would limit the number of antibiotics safe to use. 2patient is status post bronchoscopy lavage as well as sputum culture which grew multidrug-resistant Pseudomonas aeruginosa resistant to meropenem sensitive to Zosyn however the patient is allergic to Zosyn 3patient did have resolution of his fever, white count has been normal BAL cultures currently pending 4patient is currently being treated with vancomycin pharmacy to dose and Avycaz, duration for Avycaz will be total of 2 weeks this was discussed with the human services case manager working on discharge planning Mother question answered Dictation was produced using [employer] software. please excuse any grammatical, word or spelling errors. Time with Patient: Less than 30
--- NOTE | 2024-07-08 15:48 | P.PN ---
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 Patient is obese and he has developed chronic generalized weakness, respiratory insufficiency with recurrent pneumonias requiring previous intubation and mechanical ventilation. The patient has also been treated for episodes of pneumonias in the past including pseudomonal pneumonia earlier this year. He does have also an area of tracheal stenosis related to previous tracheal manipulation and tracheostomy tube insertion. Currently he has a permanent tracheostomy tube in place to secure his airways. 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 Following his most recent hospitalization in March 2024, the patient was discharged to [facility] and following that he was discharged home where he has been taking care of by family members. Since then, the patient has done well. The patient came into the emergency department as he has stated that he has been feeling more short of breath and his dyspnea is occurring in episodes. Nevertheless, he has remained hemodynamically stable. He remains on 35 to 40% trach collar without development of any significant respiratory secretions. Blo od work has been essentially stable. The white cell count at time of admission was at 5.4 with a hemoglobin of 8.3 and a platelet count of 181. Sodium levels at 139, bicarb is at 33, BUN 23 with a creatinine of 0.35. Troponins were negative. LFTs are essentially within normal limits. Total protein was at 7.4 with an albumin of 3.5. The viral screen was negative in the emergency department. Also, the patient was given a chest x-ray that showed smaller lung volumes and poor respiratory effort. There is some cardiomegaly. No acute airspace disease or consolidation. His EKG showed a normal sinus mechanism. Based on that, the patient was hospitalized in the pulmonary consultation was r equested. He was started on empiric antibiotic coverage with IV Rocephin. Noted the patient is bedridden. He has chronic muscle atrophy and contractures in his lower extremities. He remains on therapeutic dose of Lovenox 90 mg subcu every 12 hours. On 06/21/2024, the patient feels that something is obstructing his airways. At times he is feeling short of breath. No clear explanation. There may be some anatomic problems and obstruction in his trachea as during my early bronchoscopies, I noted that the patient has an area of tracheal stenosis at the site of previous tracheostomy tube insertion. I think it would be douglas to reevaluate this patient's airway right bronchoscopy and document patency of the airway. No significant respiratory secretions for now. No fever. No chills. Blood cultures are still negative. White cell count is 6.7, hemoglobin is 8.5, BUN is 12 with a creatinine of 0.36. He remains on a 40% trach collar. Remains on TPN for nutritional support. On 07/06/2024, the patient is being seen for a follow-up. This morning, the patient is awake and alert on propofol at 50 mcg/kg/min. He remains on a mechanical ventilator on assist-control mode rate of 20, tidal volume of 450, FiO2 40% with a PEEP of 5. Blood gas showed a pH of 7.44 with a [id number] and PO2 of 94. Chest x-ray shows small bilateral pleural effusions. The patient had normal citrate of 10 cc an hour. The patient on TPN at rate of 85 cc an hour. Output from the ileostomy bag is in the order of 400 cc over the past 24 hours. He has a triple-lumen catheter in his left femoral in addition to an arterial cath in his left femoral and a PICC line in his left subclavian. Fluid balance is +1.9 L over the past 24 hours. Respiratory status is stable. No significant fluid secretions. The patient has #6 Shiley XLT tracheostomy tube. Previous cultures were positive for Pseudomonas aeruginosa and corynebacterium and the patient is currently on ceftazidime/avibactam. The patient is also on vancomycin. Afebrile. No pressors for now. The white cell count is at 6.3 with a hemoglobin 8.5 and a platelet count of 252. Sodium is at 135, potassium is at 3.4, BUN 16 with a creatinine of 0.3. On 07/07/2024, the patient is being seen for a follow-up. The patient is awake and alert and this morning the patient is on no sedation. He did go on a PSV trial yesterday with a PSV of 5 and a PEEP of 5 and the patient lasted for a total of 1 hour. Following that, he felt short of breath. There was no significant change in his tidal volumes or tachypnea, however the patient stated that he was unable to breathe and he preferred to go back on assist-control mode. Since then, the patient has been maintained on assist-control rate of 20, tidal volume of 450, FiO2 40% with a PEEP of 5. Blood gases from today showed a pH of 7.42 with a SUZ600 and pO2 of 102. Chest x-ray remains essentially unchanged. There are some atelectatic changes in the lung bases bilaterally along with some trace pleural effusions. Tracheostomy is in a good location. Based on this ongoing failure, mucous plugging was suspected. I performed a bronchoscopy in the ICU today and the respiratory secretions were essentially scant. There was some looseness with secretions retained in the lower lobes bilaterally this was suctioned out. Nevertheless, there was no thick or purulent secretions. There was no mucous plugs. Tracheostomy tube was in a good location in the mid trachea. The patient is hemodynamically stable. The white cell count of 5.5 with a hemoglobin 8.9 and platelet count of 253. Sodium is at 136, BUN is 13 with a creatinine of 0.31. Remains on ceftazidime IV Bactrim and vancomycin combination. Remains on TPN at a rate of 85 cc an hour. Urine output is adequate. No other active issues for now. He is awake and alert. On 07/08/2024, the patient is awake and alert. Bronchoscopy was done and the respiratory secretions were scant. Another set of cultures were obtained from t he respiratory secretions and the primary culture still showing Pseudomonas aeruginosa. The patient remains on ceftazidime IV Bactrim and vancomycin per IDs recommendations. Chest x-ray findings are essentially unchanged. The patient is given daily trials of PSV. However, within a few hours of being on a PSV of 5 and a PEEP of 5, the patient gets short of breath and anxious. I was told that there is no significant tachypnea or drop in the patient's tidal volumes. Repeat chest x-ray from today shows low lung volumes with cardiomegaly and mild pulm vessel congestion. The patient hemodynamically stable on no pressors. He is afebrile. White count of 5.7 with a hemoglobin 9.1 and a plate let count of 253. Sodium is at 135, BUN 13 with a creatinine of 0.29. Potassium level is at 4.3. Fluid balance over the past 24 hours is +1.6 L. The patient remains on bronchodilators. The patient remains on TPN which is running at rate of 82 cc an hour. No other significant events overnight. He is on no sedation the patient is able to communicate Objective - Vital Signs Vital signs: Vital Signs Temp 98.8 F 07/08/24 08:00 Pulse 81 07/08/24 15:00 Resp 25 H 07/08/24 15:00 BP 132/62 07/08/24 15:00 Pulse Ox 98 07/08/24 15:00 FiO2 40 07/08/24 13:21 Intake & Output 07/07/24 07/08/24 07/08/24 18:59 06:59 18:59 Intake Total 1322 1195 680 Output Total 2395 800 730 Balance -1073 395 -50 Weight 99.8 kg 97.976 kg Intake: IV 527 1195 680 0.9 Normal Saline @ KVO 260 240 160 Mvi, Adult No.4 with Vit 455 520 K 10 ml Trace (Conc-1Ml/ Dose) 1 ml Sodium Chloride 4Meq/ml Vial 48 meq Potassium Chloride 26 meq Calcium Gluconate 1 gm Magnesium Sulfate gm 1 gm Sodium Phosphate 27 mmol In Amino Acids 5 %/ Dextrose 20 % 1,000 ml @ 65 mls/hr IV .BY DURATION ANNIE Rx#:[id number] Potassium Chloride 20 meq 100 In Water For Injection 1 100ml.bag @ 50 mls/hr IVPB Q2H ANNIE Rx#: [id number] Vancomycin 1,750 mg In 167 500 Sodium Chloride 0.9% 500 ml 500 ml @ 167 mls/hr IVPB Q16H ANNIE Rx#: [id number] TPN/PPN 795 Mvi, Adult No.4 with Vit 795 K 10 ml Trace (Conc-1Ml/ Dose) 1 ml Sodium Chloride 4Meq/ml Vial 48 meq Potassium Chloride 26 meq Calcium Gluconate 1 gm Magnesium Sulfate gm 1 gm Sodium Phosphate 27 mmol In Amino Acids 5 %/ Dextrose 20 % 1,000 ml @ 85 mls/hr IV .BY DURATION ANNIE Rx#:[id number] Output: Urine 1195 800 730 Stool 1200 Other: Voiding Method Indwelling Catheter Indwelling Catheter Indwelling Catheter ABP, PAP, CO, CI - Last Documented Arterial Blood Pressure 133/57 - Exam GENERAL EXAM: Awake, alert 49-year-old male patient, on the mechanical marge tilator, in no apparent distress. HEAD: Normocephalic. EYES: Normal reaction of pupils, equal size. NOSE: Clear with pink turbinates. THROAT: Tracheostomy tube secured in place. No erythema or exudates. NECK: No masses, no JVD. CHEST: No chest wall deformity. LUNGS: Equal air entry with coarse rhonchi bilaterally. CVS: S1 and S2 normal with no audible murmur, regular rhythm. ABDOMEN: Enterocutaneous fistula over the abdominal wall. No hepatosplenomegaly, normal bowel sounds. SPINE: No scoliosis or deformity SKIN: No rashes CENTRAL NERVOUS SYSTEM: No focal deficits, tone is normal in all 4 extremities. EXTREMITIES: Extensive muscle atrophy. Contractures. There is no peripheral edema. No clubbing, no cyanosis. Peripheral pulses are intact. - Labs CBC & Chem 7: 07/08/24 04:50 07/08/24 04:50 Labs: Abnormal Lab Results - Last 24 Hours (Table) 07/07/24 07/08/24 07/08/24 Range/Units 17:55 04:39 04:50 RBC (4.40-5.60) 10*6/uL Hgb (13.0-17.0) g/dL Hct (39.6-50.0) % MCH (27.0-32.0) pg MCHC (32.0-37.0) g/dL ABG pO2 149 H (83-108) mmHg ABG HCO3 29 H (21-25) mmol/L ABG Total CO2 30 H (19-24) mmol/L ABG O2 Saturation 100.0 H (94-97) % Hemoglobin 9.2 L (13.0-17.5) gm/dL Sodium 135 L (137-145) mmol/L Creatinine 0.29 L (0.66-1.25) mg/dL Glucose 104 H (74-99) mg/dL POC Glucose (mg/dL) 131 H (70-110) mg/dL 07/08/24 07/08/24 Range/Units 04:50 12:15 RBC 3.55 L (4.40-5.60) 10*6/uL Hgb 9.1 L (13.0-17.0) g/dL Hct 30.7 L (39.6-50.0) % MCH 25.6 L (27.0-32.0) pg MCHC 29.6 L (32.0-37.0) g/dL ABG pO2 (83-108) mmHg ABG HCO3 (21-25) mmol/L ABG Total CO2 (19-24) mmol/L ABG O2 Saturation (94-97) % Hemoglobin (13.0-17.5) gm/dL Sodium (137-145) mmol/L Creatinine (0.66-1.25) mg/dL Glucose (74-99) mg/dL POC Glucose (mg/dL) 111 H (70-110) mg/dL Microbiology - Last 24 Hours (Table) 07/07/24 09:50 Gram Stain - Preliminary Bronchoalviolar Lavage - Left Bronchial Washings Culture - Preliminary Pseudomonas aeruginosa 07/05/24 05:43 Blood Culture - Preliminary Blood Assessment and Plan Plan: Acute on chronic hypoxemic and hypercapnic respiratory failure, multifactorial. Transferred back into the intensive care unit 07/04/2024 and placed back on the mechanical ventilator. Respiratory failure was essentially due to respiratory secretions. He has chronic respiratory insufficiency and neuromuscular weakness. The patient decompensated because of pseudomonal pneumonia and respiratory secretions. He is post bronchoscopy. The patient is currently on ceftazidime avibactam. He is also on vancomycin. No significant respiratory secretions and the patient is tolerating PSV trials. He did tolerate 1 hours of a PSV trial yesterday. It is possible that the patient has significant neuromuscular weakness preventing him from coming off the mechanical ventilator. Bronchoscopy was done and there was no significant mucous plugging or res piratory secretions affecting his weaning process. The primary cultures are showing Pseudomonas aeruginosa. Acute left lower lobe pneumonia. Reviewed bronchoscopy 06/22/2024 with cultures positive for Pseudomonas aeruginosa and corynebacterium striatum. Repeat bronchoscopy with BAL 07/04/2024. Cultures are still positive for the same microorganism and the patient remains on the same antibiotics which include a combination of ceftazidime and Bactrim and vancomycin. Hypotension, currently receiving fluid resuscitation, currently hemodynamically stable on no pressors Tracheal stenosis, the patient has a #6 Shiley XLT tracheostomy tube in place History of recurrent ventilator dependent respiratory failure, secondary to pneumonia and mucous plugging History of sepsis, secondary to pneumonia. Crohn's disease, with previous complication of bowel perforation s/p colectomy and diverting ileostomy. The patient also has had previous history of abdominal wall bleeding there is currently inactive and stable. The patient has a high output ileostomy Tracheobronchomalacia History of DVT History of CVA/TIA Right below the knee amputation History of asystole/cardiac arrest, 2021 Plan: Continue ventilator support Will try a gradual pressure support mode of weaning. The patient was placed on a PSV of 14 and a PEEP of 5 and the patient will be gradually weaned off the pressure support by 2 cm of water at the time with close monitoring of his respiratory status, respiratory rate and tidal volumes. Will put the patient on Lasix 20 mg IV every 12 hours. continue on Avycaz and vancomycin, the repeat cultures from the respiratory secretions post bronchoscopy revealed Pseudomonas aeruginosa. Remains on TPN and lipids Anticoagulated with Lovenox Continue DuoNeb inhalations Discontinue Pulmicort Respules Protonix for GI prophylaxis Wean down propofol and discontinue Progress is slow. May be a good candidate for select specialty. Will continue to follow. Evaluation was done and 33 minutes. Patient may ultimately be permanently dependent on a mechanical ventilator. Discussed this possibility with the patient. Time with Patient: Greater than 30
[2024-07-08 18:04] LABS: Glucose,Whole Blood 85 mg/dL (70-110)
[2024-07-08] MEDS: FUROSEMIDE 10 MG/ML 2 ML VIAL IV SCH (20:39)
--- NOTE | 2024-07-08 21:11 | P.PN ---
Subjective Progress Note Date: 07/08/24 Patient admitted for bilateral cramping due to pneumonia gram-negative organism is not identified yet patient had Pseudomonas in the past patient underwent bronchoscopy patient remains on mechanical ventilation broad-spectrum antibiotics patient has a tracheostomy in place. Patient underwent bronchoalveolar lavage. 06/26/2024 Patient is evaluated in the ICU. Remains on the mechanical ventilator with FiO2 of 40%. Sputum culture reveals pseudomonas aeruginosa, corynebacterium striatum group. He remains on antibiotics with IV ceftazidime/Avibactam. TPN infusing. Labs today reveal white blood cell count 4.72, hgb 7.6, sodium 135, potassium 4.0, BUN 13, creatinine 0.39. Magnesium 1.9. Triglycerides of 183.00. 06/27/2024 Patient is evaluated in the intensive care unit. He is currently on the trach collar. Awake alert and oriented. Chest xray today shows left lower lobe atelectasis or pneumonia. Per mother at the bedside he was only home [facility] day prior to returning to the hospital. He will likely need to return to [facility] on DC. Remains on TPN. White blood cell count 5.07, hgb 7.3, sodium 134, BUN 11, creatinine 0.34. 06/28/2024 Patient is eval today in intensive care unit. He is complaining of pain in the right ear manual examination does reveal some erythema of the canal and eardrum. We will add eardrops and monitor for improvement in symptoms. Patient is awake alert oriented he has tolerated trach collar. Chest x-ray today reveals a developing left lower lobe infiltrate with a small effusion which may be present. He continues on IV meropenem for positive sputum and bronchial washings of Pseudomonas aeruginosa and corynebacterium striatum group. Labs today reveal a white blood cell count of 5.55, hemoglobin 7.4, sodium 135, BUN of 11 creatinine 0.40. 06/29/2024 Patient is evaluated in the intensive care unit he is currently downgraded and pending a bed on the medical floor. Patient is ready for discharge and did discuss with the patient that he needs to follow-up with his family and I will also talk with his family regarding discharge planning if he is able to discharge home versus subacute rehab versus LTAC. Patient is adamant that that [facility] will not [facility]. Due to his complex medical needs including PEG tube, TPN, his tracheostomy, ileostomy, and IV antibiotics he may not be a candidate for subacute rehabilitation but referrals were placed by social work. He does state that his right ear feels better after being initiated on antibiotic eardrops and they will be continued at this time. His labs today reveal a white blood cell count of 5.50, hemoglobin 7.6, sodium level of 135, BUN of 9 creatinine 0.37 and magnesium level of 1.8. 06/30/2024 Patient is evaluated in follow-up in the medical floor. He has no acute complaints at this time. He does report again mild improvement in his right ear pain and he continues with the eardrops. Had a long discussion with patient's son over and over the phone regarding discharge planning. Alan is apprehensive about allowing child to return home due to his complex medical needs and somebody having to stay up with him overnight for suctioning and trach care. Open would like him to return [facility] for at least another month or so until his other brother comes home from college. Will need to follow-up with patient tomorrow regarding this and awaiting other referrals for any other excepting facility as patient really does not want to return to the [facility]. 07/01/2024 Patient evaluated today resting in bed. Per nursing he was lethargic overnight but seems improved today. Patient is currently a bed at a subacute rehab [facility] and social work following. He remains on IV ceftazidime/avibactam. Chest x-ray today Reveals stable chest with left-sided pleural effusion. There is opacification of the right lung base and left lung base. Patient is on TPN. Patient is afebrile, heart rate 53, blood pressure 144/67, 100% on trach collar. 07/02/2024 Patient evaluated today in follow up. No acute complaints at this time. Still pending accepting rehab facility. Remains on the IV ceftazidime/avibactam. 07/03/2024 Patient evaluated today in follow up was downgraded to the general medical floor. Report the right ear pain and fullness is better. He continues on IV ceftazidime/Avibactam and IV vancomycin for the pseudomonas in the sputum. No accepting facility so far. He may need to remain hospitalized while he finishes course of antibiotics. He is tolerating the trach collar. 07/04. Patient seen and examined. Patient was a teamed this morning for decrease responsiveness, was found to be hypoxemic, was transferred back to ICU and was placed on ventilator. Patient is currently on breathing treatments. Hemoglobin this morning was 6.8, 1 unit of packed red blood cells ordered. Patient has been started on Levophed 07/05. Patient seen and examined. Patient is currently off sedation, opening eyes. Patient received 2 units of packed red blood cells in total since yesterday, hemoglobin improved to8.3, WBC 6.03, platelet count 229, sodium 137, potassium 3.8, BUN 18, creatinine 0.34, glucose 143, phosphorus 1.8. Critical care planning to trial CPAP 07/06/2024 Patient evaluated today in the intensive care unit. He is awake alert and responsive, he is able to answer simple questions. Under bronchoscopy on 07/04 with preliminary cultures showing pseudomonas aeruginosa; corynebacterium striatum group. Chest xray shows small bilateral pleural effusions. Remains on IV antibiotics. He is on the mechanical ventilator. Hemoglobin better today at 8.5. Sodium of 135, potassium 3.4. 07/07/2024 Patient remains in the intensive care unit. He is awake alert and responsive he is able to talk with a tracheostomy in place. His repeat cultures from the bronchoscopy are showing Pseudomonas aeruginosa and Corynebacterium stratum group. He continues on antibiotics in the form of IV ADK as as well as IV vancomycin. Patient remains off pressor support at this time. ID is following closely. Chest x-ray today reveals a bilateral trace pleural effusion. Patient underwent flexible bronchoscopy today and there was no evidence of mucous plugging or thick secretions. 10 cc of respiratory secretions were suctioned out. Patient had no evidence of tracheal stenosis during the procedure. Has been difficult to wean from the vent. 07/08/2024 Patient is evaluated today in follow up in the intensive care unit. His chest xray today reveals mild pulmonary vascular congestion. He remains on the ventilator currently with FiO2 and the most recent bronchoscopy cultures are showing preliminary pseudomonas aeruginosa. He continues on IV avycaz/ IV vancomycin. Ileostomy change was performed today with son at the bedside. Labs today reveal white blood cell count 5.74, hgb 9.1, sodium 135, potassium 4.3, BUN 13, creatinine 0.29, magnesium 1.9. Review of Systems Constitutional: Denied any fatigue denied any fever. Cardio vascular: denied any chest pain, palpitations Gastrointestinal: denied any nausea, vomiting, diarrhea Pulmonary: Denied any shortness of breath cough Neurologic denied any new focal deficits All inpatient medications were reviewed and appropriate changes in these medications as dictated in the interval history and assessment and plan. PHYSICAL EXAMINATION: GENERAL: Patient is awake alert oriented x3. HEENT: Pupils are round and equally reacting to light. EOMI. No scleral icterus. No conjunctival pallor. Normocephalic, atraumatic. No pharyngeal erythema. No thyromegaly. Tracheostomy in place. CARDIOVASCULAR: S1 and S2 present. No murmurs, rubs, or gallops. PULMONARY: Chest is clear to auscultation, no wheezing or crackles. ABDOMEN: Soft, nontender, nondistended, normoactive bowel sounds. No palpable organomegaly. MUSCULOSKELETAL: No joint swelling or deformity. EXTREMITIES: No cyanosis, clubbing, or pedal edema. NEUROLOGICAL: Sedated at this time SKIN: No rashes. Assessment and plan Bilateral gram-negative pneumonia possibility of aspiration infectious disease and multiple other consultants are following the patient - Acute respiratory failure requiring mechanical ventilation status post bronchoalveolar lavage; cultures growing pseudomonas and corynebacterium. Repeat bronch reveals same cultures. pending microsensitivities. - Crohn's disease with ileostomy in the past patient is presently on TPN - Anemia with no active GI bleed s/p 3 units of PRBC - Right sided otitis media completed gtts. 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 Repeat bronchoscopy with BAL 07/04/2024 pending final cultures. Patient underwent bronchoscopy again on 07/07/2024 with preliminary cultures showing pseudomonas. Status post 3 unit of packed red blood cell Continue Lovenox Continue on Avycaz and vancomycin Remains on TPN and lipids Continue DuoNeb inhalations Pulmonology following ID following Repeat blood work Social work following for DC planning when medically stable. Patient will not be able to return to an LTAC as patient does not have any more Medicare days remaining. Pending accepting [facility] facility. The impression and plan of care has been dictated by Coral Medina, Nurse Practitioner as directed. Dr. Mo MD I have performed a history and physical examination and medical decision making of this patient, discussed the same with the dictator, and agree with the dictators assessment and plan as written, documented as a scribe. Based on total visit time, I have performed more than 50% of this visit. Objective - Vital Signs Vital signs: Vital Signs Temp 98.2 F 07/08/24 20:00 Pulse 77 07/08/24 21:00 Resp 22 07/08/24 21:00 BP 125/65 07/08/24 21:00 Pulse Ox 98 07/08/24 21:00 FiO2 40 07/08/24 20:31 Intake & Output 07/08/24 07/08/24 07/09/24 06:59 18:59 06:59 Intake Total 1195 935 255 Output Total 800 1080 Balance 395 -145 255 Weight 97.976 kg Intake: IV 1195 935 255 0.9 Normal Saline @ KVO 240 220 60 Mvi, Adult No.4 with Vit 455 715 195 K 10 ml Trace (Conc-1Ml/ Dose) 1 ml Sodium Chloride 4Meq/ml Vial 48 meq Potassium Chloride 26 meq Calcium Gluconate 1 gm Magnesium Sulfate gm 1 gm Sodium Phosphate 27 mmol In Amino Acids 5 %/ Dextrose 20 % 1,000 ml @ 65 mls/hr IV .BY DURATION ANNIE Rx#:[id number] Vancomycin 1,750 mg In 500 Sodium Chloride 0.9% 500 ml 500 ml @ 167 mls/hr IVPB Q16H ANNIE Rx#: [id number] Output: Urine 800 1080 Other: Voiding Method Indwelling Catheter Indwelling Catheter Indwelling Catheter ABP, PAP, CO, CI - Last Documented Arterial Blood Pressure 114/67 - Labs CBC & Chem 7: 07/08/24 04:50 07/08/24 04:50 Labs: Abnormal Lab Results - Last 24 Hours (Table) 07/08/24 07/08/24 07/08/24 Range/Units 04:39 04:50 04:50 RBC 3.55 L (4.40-5.60) 10*6/uL Hgb 9.1 L (13.0-17.0) g/dL Hct 30.7 L (39.6-50.0) % MCH 25.6 L (27.0-32.0) pg MCHC 29.6 L (32.0-37.0) g/dL ABG pO2 149 H (83-108) mmHg ABG HCO3 29 H (21-25) mmol/L ABG Total CO2 30 H (19-24) mmol/L ABG O2 Saturation 100.0 H (94-97) % Hemoglobin 9.2 L (13.0-17.5) gm/dL Sodium 135 L (137-145) mmol/L Creatinine 0.29 L (0.66-1.25) mg/dL Glucose 104 H (74-99) mg/dL POC Glucose (mg/dL) (70-110) mg/dL 07/08/24 Range/Units 12:15 RBC (4.40-5.60) 10*6/uL Hgb (13.0-17.0) g/dL Hct (39.6-50.0) % MCH (27.0-32.0) pg MCHC (32.0-37.0) g/dL ABG pO2 (83-108) mmHg ABG HCO3 (21-25) mmol/L ABG Total CO2 (19-24) mmol/L ABG O2 Saturation (94-97) % Hemoglobin (13.0-17.5) gm/dL Sodium (137-145) mmol/L Creatinine (0.66-1.25) mg/dL Glucose (74-99) mg/dL POC Glucose (mg/dL) 111 H (70-110) mg/dL Microbiology - Last 24 Hours (Table) 07/07/24 09:50 Gram Stain - Preliminary Bronchoalviolar Lavage - Left Bronchial Washings Culture - Preliminary Pseudomonas aeruginosa 07/05/24 05:43 Blood Culture - Preliminary Blood Assessment and Plan Time with Patient: Less than 30
[2024-07-09 00:31] LABS: Glucose,Whole Blood 110 mg/dL (70-110)
[2024-07-09 03:51] LABS: ABG Base Excess 4.7 mmol/L; ABG HCO3 29 mmol/L (21-25); ABG Oxygen Saturation 99.4 % (94-97); ABG PCO2 43 mmHg (35-45); ABG PH 7.44 (7.35-7.45); ABG PO2 117 mmHg (83-108); ABG TCO2 31 mmol/L (19-24); Allen Test Performed? Yes
[2024-07-09 04:10] LABS: HCT 32.3 % (39.6-50.0); MCH 26.1 pg (27.0-32.0); MCV 84.3 fL (80.0-97.0); Mean Platelet Volume 11.4 fL (9.5-12.2); Platelet Count 265 10*3/uL (140-440); RBC 3.83 10*6/uL (4.40-5.60); RDW 16.4 % (11.5-14.5); WBC 5.21 10*3/uL (4.50-10.00)
[2024-07-09 04:32] LABS: African American GFR (CKD) >90 (>60 ml/min/1.73 sqM); Anion Gap 9 mmol/L; Blood Urea Nitrogen 14 mg/dL (9-20); Calcium 9.1 mg/dL (8.4-10.2); Carbon Dioxide 27 mmol/L (22-30); Chloride 99 mmol/L (98-107); Glucose 109 mg/dL (74-99); Magnesium 1.8 mg/dL (1.6-2.3); Non-African American GFR(CKD) >90 (>60 ml/min/1.73 sqM); Phosphorus 3.5 mg/dL (2.5-4.5); Potassium 3.8 mmol/L (3.5-5.1); Sodium 135 mmol/L (137-145)
[2024-07-09] MEDS: MAGNESIUM SULFATE-D5W PMX 1 GM in DEXTROSE/WATER 1 100ML.BAG IVPB ONE (04:54)
[2024-07-09] MEDS: POTASSIUM CHLORIDE 10 MEQ in WATER FOR INJECTION 1 100ML.BAG IVPB SCH ×2 (04:54→22:53)
[2024-07-09] MEDS: VANCOMYCIN TROUGH DUE 1 EACH MISC MISCELLANE ONE (06:19)
[2024-07-09 06:24] LABS: Glucose,Whole Blood 115 mg/dL (70-110)
--- NOTE | 2024-07-09 08:08 | XR ---
EXAMINATION TYPE: XR chest 1V portable DATE OF EXAM: 07/09/2024 5:19 AM COMPARISON: Multiple radiographs, with the most recent on 07/08/2024 TECHNIQUE: XR chest 1V portable Portable AP radiograph of the chest. CLINICAL INDICATION:Male, 49 years old with history of mechanical ventilation; FINDINGS: Lungs/Pleura: Low lung volumes are present. There is no evidence of pleural effusion, focal consolida tion, or pneumothorax. Elevation of the right hemidiaphragm. Pulmonary vascularity: Improvement in previously seen pulmonary vascular congestion. Heart/mediastinum: Cardiomediastinal silhouette is stable. Musculoskeletal: No acute osseous pathology. Other findings: Surgical clips within the right supraclavicular region. Lines/Tubes: Tracheostomy cannula in stable position. Left IJ central venous catheter with distal tip in stable position at the right atrium. IMPRESSION: 1. Improvement in previously seen pulmonary vascular congestion. 2. Stable support lines and tubes. [facility], , 07/09/2024 8:06 AM
[2024-07-09] MEDS ORDERED: RX INFO: IV CONTRAST WAS GIVEN 1 EACH MISC MISCELLANE PRN (11:35)
[2024-07-09 12:03] LABS: Glucose,Whole Blood 89 mg/dL (70-110)
--- NOTE | 2024-07-09 12:11 | P.PN ---
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 Patient is obese and he has developed chronic generalized weakness, respiratory insufficiency with recurrent pneumonias requiring previous intubation and mechanical ventilation. The patient has also been treated for episodes of pneumonias in the past including pseudomonal pneumonia earlier this year. He does have also an area of tracheal stenosis related to previous tracheal manipulation and tracheostomy tube insertion. Currently he has a permanent tracheostomy tube in place to secure his airways. 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 Following his most recent hospitalization in March 2024, the patient was discharged to [facility] and following that he was discharged home where he has been taking care of by family members. Since then, the patient has done well. The patient came into the emergency department as he has stated that he has been feeling more short of breath and his dyspnea is occurring in episodes. Nevertheless, he has remained hemodynamically stable. He remains on 35 to 40% trach collar without development of any significant respiratory secretions. Blo od work has been essentially stable. The white cell count at time of admission was at 5.4 with a hemoglobin of 8.3 and a platelet count of 181. Sodium levels at 139, bicarb is at 33, BUN 23 with a creatinine of 0.35. Troponins were negative. LFTs are essentially within normal limits. Total protein was at 7.4 with an albumin of 3.5. The viral screen was negative in the emergency department. Also, the patient was given a chest x-ray that showed smaller lung volumes and poor respiratory effort. There is some cardiomegaly. No acute airspace disease or consolidation. His EKG showed a normal sinus mechanism. Based on that, the patient was hospitalized in the pulmonary consultation was r equested. He was started on empiric antibiotic coverage with IV Rocephin. Noted the patient is bedridden. He has chronic muscle atrophy and contractures in his lower extremities. He remains on therapeutic dose of Lovenox 90 mg subcu every 12 hours. On 06/21/2024, the patient feels that something is obstructing his airways. At times he is feeling short of breath. No clear explanation. There may be some anatomic problems and obstruction in his trachea as during my early bronchoscopies, I noted that the patient has an area of tracheal stenosis at the site of previous tracheostomy tube insertion. I think it would be douglas to reevaluate this patient's airway right bronchoscopy and document patency of the airway. No significant respiratory secretions for now. No fever. No chills. Blood cultures are still negative. White cell count is 6.7, hemoglobin is 8.5, BUN is 12 with a creatinine of 0.36. He remains on a 40% trach collar. Remains on TPN for nutritional support. On 07/06/2024, the patient is being seen for a follow-up. This morning, the patient is awake and alert on propofol at 50 mcg/kg/min. He remains on a mechanical ventilator on assist-control mode rate of 20, tidal volume of 450, FiO2 40% with a PEEP of 5. Blood gas showed a pH of 7.44 with a AXF136 and PO2 of 94. Chest x-ray shows small bilateral pleural effusions. The patient had normal citrate of 10 cc an hour. The patient on TPN at rate of 85 cc an hour. Output from the ileostomy bag is in the order of 400 cc over the past 24 hours. He has a triple-lumen catheter in his left femoral in addition to an arterial cath in his left femoral and a PICC line in his left subclavian. Fluid balance is +1.9 L over the past 24 hours. Respiratory status is stable. No significant fluid secretions. The patient has #6 Shiley XLT tracheostomy tube. Previous cultures were positive for Pseudomonas aeruginosa and corynebacterium and the patient is currently on ceftazidime/avibactam. The patient is also on vancomycin. Afebrile. No pressors for now. The white cell count is at 6.3 with a hemoglobin 8.5 and a platelet count of 252. Sodium is at 135, potassium is at 3.4, BUN 16 with a creatinine of 0.3. On 07/07/2024, the patient is being seen for a follow-up. The patient is awake and alert and this morning the patient is on no sedation. He did go on a PSV trial yesterday with a PSV of 5 and a PEEP of 5 and the patient lasted for a total of 1 hour. Following that, he felt short of breath. There was no significant change in his tidal volumes or tachypnea, however the patient stated that he was unable to breathe and he preferred to go back on assist-control mode. Since then, the patient has been maintained on assist-control rate of 20, tidal volume of 450, FiO2 40% with a PEEP of 5. Blood gases from today showed a pH of 7.42 with a IJF781 and pO2 of 102. Chest x-ray remains essentially unchanged. There are some atelectatic changes in the lung bases bilaterally along with some trace pleural effusions. Tracheostomy is in a good location. Based on this ongoing failure, mucous plugging was suspected. I performed a bronchoscopy in the ICU today and the respiratory secretions were essentially scant. There was some looseness with secretions retained in the lower lobes bilaterally this was suctioned out. Nevertheless, there was no thick or purulent secretions. There was no mucous plugs. Tracheostomy tube was in a good location in the mid trachea. The patient is hemodynamically stable. The white cell count of 5.5 with a hemoglobin 8.9 and platelet count of 253. Sodium is at 136, BUN is 13 with a creatinine of 0.31. Remains on ceftazidime IV Bactrim and vancomycin combination. Remains on TPN at a rate of 85 cc an hour. Urine output is adequate. No other active issues for now. He is awake and alert. On 07/08/2024, the patient is awake and alert. Bronchoscopy was done and the respiratory secretions were scant. Another set of cultures were obtained from t he respiratory secretions and the primary culture still showing Pseudomonas aeruginosa. The patient remains on ceftazidime IV Bactrim and vancomycin per IDs recommendations. Chest x-ray findings are essentially unchanged. The patient is given daily trials of PSV. However, within a few hours of being on a PSV of 5 and a PEEP of 5, the patient gets short of breath and anxious. I was told that there is no significant tachypnea or drop in the patient's tidal volumes. Repeat chest x-ray from today shows low lung volumes with cardiomegaly and mild pulm vessel congestion. The patient hemodynamically stable on no pressors. He is afebrile. White count of 5.7 with a hemoglobin 9.1 and a plate let count of 253. Sodium is at 135, BUN 13 with a creatinine of 0.29. Potassium level is at 4.3. Fluid balance over the past 24 hours is +1.6 L. The patient remains on bronchodilators. The patient remains on TPN which is running at rate of 82 cc an hour. No other significant events overnight. He is on no sedation the patient is able to communicate On 07/09/2024, the patient is awake and alert and communicating. He was able to tolerate PSV mode of mechanical ventilation. Initially the PSV of 14 and a PEEP of 5 and ultimately this was weaned down to a PSV of 9 throughout the day. Overnight, the patient was placed on assist-control mode of mechanical ventilation. This morning, the patient is on a PSV of 9 and a PEEP of 5 and the blood gases showed a pH of 7.44 with a XWV754 and PO217. Chest x-ray findings are essentially unchanged. Doing well. No significant respiratory secretions. Most recent bronchial cultures are still showing Pseudomonas aeruginosa and the patient remains on a combination of ceftazidime IV Bactrim and vancomycin. The patient remains hemodynamically stable. The patient has no specific complaints. The patient has increased anxiety and the patient is currently on Ativan 1 mg every 8 hours IV. Respiratory medications remain unchanged. Remains on Lovenox therapeutic dose 90 mg subcu every 12 hours. Remains on TPN for nutritional support which is running at a rate of 65 cc an hour. Fluid balance is -600 cc over the past 24 hours and the patient is currently on Lasix 20 mg IV every 12 hours. Blood work from today shows a white cell count of 5.2 with a hemoglobin 10 and platelet count of 265. Sodium level is 135, BUN is 14 with a creatinine of 0.3. Glucose is 115. Objective - Vital Signs Vital signs: Vital Signs Temp 97.9 F 07/09/24 04:00 Pulse 80 07/09/24 08:33 Resp 26 H 07/09/24 07:00 BP 108/51 07/09/24 07:00 Pulse Ox 95 07/09/24 07:00 FiO2 40 07/09/24 08:15 Intake & Output 07/08/24 07/09/24 07/09/24 18:59 06:59 18:59 Intake Total 935 1105 Output Total 1080 2800 Balance -145 -1695 Weight 97.069 kg Intake: IV 935 1105 0.9 Normal Saline @ KVO 220 260 Mvi, Adult No.4 with Vit 715 845 K 10 ml Trace (Conc-1Ml/ Dose) 1 ml Sodium Chloride 4Meq/ml Vial 48 meq Potassium Chloride 26 meq Calcium Gluconate 1 gm Magnesium Sulfate gm 1 gm Sodium Phosphate 27 mmol In Amino Acids 5 %/ Dextrose 20 % 1,000 ml @ 65 mls/hr IV .BY DURATION [facility] Rx#:[id number] Output: Urine 1080 Stool 2800 Other: Voiding Method Indwelling Catheter Indwelling Catheter # Bowel Movements 1 ABP, PAP, CO, CI - Last Documented Arterial Blood Pressure 139/63 - Exam GENERAL EXAM: Awake, alert 49-year-old male patient, on the mechanical ventilator, in no apparent distress. HEAD: Normocephalic. EYES: Normal reaction of pupils, equal size. NOSE: Clear with pink turbinates. THROAT: Tracheostomy tube secured in place. No erythema or exudates. NECK: No masses, no JVD. CHEST: No chest wall deformity. LUNGS: Equal air entry with coarse rhonchi bilaterally. CVS: S1 and S2 normal with no audible murmur, regular rhythm. ABDOMEN: Enterocutaneous fistula over the abdominal wall. No hepa tosplenomegaly, normal bowel sounds. SPINE: No scoliosis or deformity SKIN: No rashes CENTRAL NERVOUS SYSTEM: No focal deficits, tone is normal in all 4 extremities. EXTREMITIES: Extensive muscle atrophy. Contractures. There is no peripheral edema. No clubbing, no cyanosis. Peripheral pulses are intact. - Labs CBC & Chem 7: 07/09/24 04:00 07/09/24 04:00 Labs: Abnormal Lab Results - Last 24 Hours (Table) 07/08/24 07/09/24 07/09/24 Range/Units 12:15 03:48 04:00 RBC (4.40-5.60) 10*6/uL Hgb (13.0-17.0) g/dL Hct (39.6-50.0) % MCH (27.0-32.0) pg MCHC (32.0-37.0) g/dL ABG pO2 117 H (83-108) mmHg ABG HCO3 29 H (21-25) mmol/L ABG Total CO2 31 H (19-24) mmol/L ABG O2 Saturation 99.4 H (94-97) % Hemoglobin 9.9 L (13.0-17.5) gm/dL Sodium 135 L (137-145) mmol/L Creatinine 0.36 L (0.66-1.25) mg/dL Glucose 109 H (74-99) mg/dL POC Glucose (mg/dL) 111 H (70-110) mg/dL 07/09/24 07/09/24 Range/Units 04:00 06:23 RBC 3.83 L (4.40-5.60) 10*6/uL Hgb 10.0 L (13.0-17.0) g/dL Hct 32.3 L (39.6-50.0) % MCH 26.1 L (27.0-32.0) pg MCHC 31.0 L (32.0-37.0) g/dL ABG pO2 (83-108) mmHg ABG HCO3 (21-25) mmol/L ABG Total CO2 (19-24) mmol/L ABG O2 Saturation (94-97) % Hemoglobin (13.0-17.5) gm/dL Sodium (137-145) mmol/L Creatinine (0.66-1.25) mg/dL Glucose (74-99) mg/dL POC Glucose (mg/dL) 115 H (70-110) mg/dL Microbiology - Last 24 Hours (Table) 07/07/24 09:50 Gram Stain - Final Bronchoalviolar Lavage - Left Bronchial Washings Culture - Final Pseudomonas aeruginosa 07/05/24 05:43 Blood Culture - Preliminary Blood Assessment and Plan Plan: Acute on chronic hypoxemic and hypercapnic respiratory failure, multifactorial. Transferred back into the intensive care unit 07/04/2024 and placed back on the mechanical ventilator. Respiratory failure was essentially due to respiratory secretions. He has chronic respiratory insufficiency and neuromuscular weakness. The patient decompensated because of pseudomonal pneumonia and respiratory secretions. He is post bronchoscopy. The patient is currently on ceftazidime avibactam. He is also on vancomycin. No significant respiratory secretions and the patient is tolerating PSV trials. The patient was able to tolerate PSV for an exam. At the time of the higher PSV pressures and he underwent a slow PSV wean. Chest x-ray findings are stable. Blood gases are also stable. Acute left lower lobe pneumonia. Reviewed bronchoscopy 06/22/2024 with cultures positive for Pseudomonas aeruginosa and corynebacterium striatum. Repeat bronchoscopy with BAL 07/04/2024. Cultures are still positive for the same microorganism and the patient remains on the same antibiotics which include a combination of ceftazidime and Bactrim and vancomycin. Hypotension, currently receiving fluid resuscitation, currently hemodynamically stable on no pressors Tracheal stenosis, the patient has a #6 Shiley XLT tracheostomy tube in place History of recurrent ventilator dependent respiratory failure, secondary to p neumonia and mucous plugging History of sepsis, secondary to pneumonia. Crohn's disease, with previous complication of bowel perforation s/p colectomy and diverting ileostomy. The patient also has had previous history of abdominal wall bleeding there is currently inactive and stable. The patient has a high output ileostomy Tracheobronchomalacia History of DVT History of CVA/TIA Right below the knee amputation History of asystole/cardiac arrest, 2021 Plan: Continue ventilator support Will try a gradual pressure support mode of weaning. The patient was placed on a PSV of 9 and a PEEP of 5 and the patient will be gradually weaned off the pressure support by 2 cm of water at the time with close monitoring of his respiratory status, respiratory rate and tidal volumes. Continue anxiolytics and the patient will be placed on Ativan 1 mg IV every 6 hours. Continue Lasix 20 mg IV every 12 hours. continue on Avycaz and vancomycin, the repeat cultures from the respiratory secretions post bronchoscopy revealed Pseudomonas aeruginosa. Remains on TPN and lipids Anticoagulated with Lovenox Continue DuoNeb inhalations Protonix for GI prophylaxis Wean down propofol and discontinue Progress is slow. May be a good candidate for select specialty. Will continue to follow. Evaluation was done and 33 minutes. Patient may ultimately be permanently dependent on a mechanical ventilator. Discussed this possibility with the patient. Time with Patient: Greater than 30
[2024-07-09] MEDS: LORazepam 2 MG/ML INJ IV PRN (13:05)
--- NOTE | 2024-07-09 13:56 | CT ---
EXAMINATION TYPE: CT chest wo con DATE OF EXAM: 07/09/2024 COMPARISON: CTA chest dated 02/13/2023 CLINICAL INDICATION: Male, 49 years old with history of Pneumonia, persistent positive Pseudomonas; P HH, PNEUMONIA, PERSISTENT POSITIVE PSEUDOMONAS TECHNIQUE: CT scan of the thorax is performed without IV contrast. CT DLP: 604.[address] CTDI: mGy Automated exposure control for dose reduction was used. FINDINGS: There are small bilateral pleural effusions and small bibasilar consolidative infiltrates consistent with pneumonia. The upper lung craft are clear. There is an ET tube approximately 3.1 cm. There is a left jugular central venous catheter tip in the SVC/RA junction.. There is moderate elevation of the right hemidiaphragm. There is no mediastinal, hilar or axillary ad enopathy. Limited scanning through the upper abdomen reveals mild splenomegaly. There are no focal osseous lesions. 1. Bibasilar infiltrates and small effusions. 2. Mild splenomegaly. 3. ET tube 3.1 cm above the avery. [facility], Workstation: BURT 07/09/2024 1:54 PM
--- NOTE | 2024-07-09 14:45 | P.PN ---
Subjective Progress Note Date: 07/09/24 Principal diagnosis: Reason for follow-up pneumonia Patient is a 49-year-old male with a past medical history significant for chron's disease in this patient who did have multiple surgeries and complication as far as abdominal surgeries did have history of recurrent pn eumonia vent dependent respiratory failure currently on a trach collar CVA TIA patient has been brought into the hospital concerning for chest pain patient also have abnormal chest x-ray concern for possible pneumonia prompting this consultation. On today's evaluation that is 07/09/2024,the patient remains to be afebrile, patient is on on the ventilator FiO2 currently at 40% patient is awake answer simple question no vomiting or other changes reported by the nursing staff. Patient white count is 5.21 creatinine 0.36 BAL culture growing Pseudomonas Objective - Vital Signs Vital signs: Vital Signs Temp 98.1 F 07/09/24 08:00 Pulse 84 07/09/24 09:00 Resp 20 07/09/24 09:00 BP 126/67 07/09/24 09:00 Pulse Ox 100 07/09/24 09:00 FiO2 40 07/09/24 09:24 Intake & Output 07/08/24 07/09/24 07/09/24 18:59 06:59 18:59 Intake Total 935 1105 770 Output Total 1080 2800 425 Balance -145 -1695 345 Weight 97.069 kg Intake: IV 935 1105 640 0.9 Normal Saline @ KVO 220 260 40 Ceftazidime/Avibactam 2.5 100 gm In Sodium Chloride 0. 9% 100 ml @ 50 mls/hr IVPB Q8H [facility] Rx#: [id number] Mvi, Adult No.4 with Vit 715 845 K 10 ml Trace (Conc-1Ml/ Dose) 1 ml Sodium Chloride 4Meq/ml Vial 48 meq Potassium Chloride 26 meq Calcium Gluconate 1 gm Magnesium Sulfate gm 1 gm Sodium Phosphate 27 mmol In Amino Acids 5 %/ Dextrose 20 % 1,000 ml @ 65 mls/hr IV .BY DURATION [facility] Rx#:[id number] Vancomycin 1,750 mg In 500 Sodium Chloride 0.9% 500 ml 500 ml @ 167 mls/hr IVPB Q16H [facility] Rx#: [id number] TPN/PPN 130 Mvi, Adult No.4 with Vit 130 K 10 ml Trace (Conc-1Ml/ Dose) 1 ml Sodium Chloride 4Meq/ml Vial 48 meq Potassium Chloride 26 meq Calcium Gluconate 1 gm Magnesium Sulfate gm 1 gm Sodium Phosphate 27 mmol In Amino Acids 5 %/ Dextrose 20 % 1,000 ml @ 65 mls/hr IV .BY DURATION [facility] Rx#:[id number] Output: Urine 1080 425 Stool 2800 Other: Voiding Method Indwelling Catheter Indwelling Catheter Indwelling Catheter # Bowel Movements 1 ABP, PAP, CO, CI - Last Documented Arterial Blood Pressure 129/58 - Exam GENERAL DESCRIPTION: Middle-age male intubated with a trach RESPIRATORY SYSTEM: Unlabored breathing , coarse breath sounds bilaterally HEART: S1 S2 regular rate and rhythm , ABDOMEN: Soft , no tenderness EXTREMITIES: Swelling to the leg no redness - Labs CBC & Chem 7: 07/09/24 04:00 07/09/24 04:00 Labs: Abnormal Lab Results - Last 24 Hours (Table) 07/08/24 07/09/24 07/09/24 Range/Units 12:15 03:48 04:00 RBC (4.40-5.60) 10*6/uL Hgb (13.0-17.0) g/dL Hct (39.6-50.0) % MCH (27.0-32.0) pg MCHC (32.0-37.0) g/dL ABG pO2 117 H (83-108) mmHg ABG HCO3 29 H (21-25) mmol/L ABG Total CO2 31 H (19-24) mmol/L ABG O2 Saturation 99.4 H (94-97) % Hemoglobin 9.9 L (13.0-17.5) gm/dL Sodium 135 L (137-145) mmol/L Creatinine 0.36 L (0.66-1.25) mg/dL Glucose 109 H (74-99) mg/dL POC Glucose (mg/dL) 111 H (70-110) mg/dL 07/09/24 07/09/24 Range/Units 04:00 06:23 RBC 3.83 L (4.40-5.60) 10*6/uL Hgb 10.0 L (13.0-17.0) g/dL Hct 32.3 L (39.6-50.0) % MCH 26.1 L (27.0-32.0) pg MCHC 31.0 L (32.0-37.0) g/dL ABG pO2 (83-108) mmHg ABG HCO3 (21-25) mmol/L ABG Total CO2 (19-24) mmol/L ABG O2 Saturation (94-97) % Hemoglobin (13.0-17.5) gm/dL Sodium (137-145) mmol/L Creatinine (0.66-1.25) mg/dL Glucose (74-99) mg/dL POC Glucose (mg/dL) 115 H (70-110) mg/dL Microbiology - Last 24 Hours (Table) 07/07/24 09:50 Gram Stain - Final Bronchoalviolar Lavage - Left Bronchial Washings Culture - Final Pseudomonas aeruginosa 07/05/24 05:43 Blood Culture - Preliminary Blood Assessment and Plan (1) Abnormal chest x-ray Current Visit: Yes Status: Acute Code(s): R93.89 - ABNORMAL FINDINGS ON DX IMAGING OF OTH BODY STRUCTURES SNOMED Code(s): 555760646 (2) Penicillin allergy Current Visit: Yes Status: Acute Code(s): Z88.0 - ALLERGY STATUS TO PENICILLIN SNOMED Code(s): 26567836 (3) Pneumonia Current Visit: No Status: Acute Code(s): J18.9 - PNEUMONIA, UNSPECIFIED ORGANISM SNOMED Code(s): 528430240 (4) Sepsis Current Visit: No Status: Acute Code(s): A41.9 - SEPSIS, UNSPECIFIED ORGANISM SNOMED Code(s): 85666356 Plan: 1patient did have worsening of his respiratory status requiring intubation and transferred to ICU also spiked a fever And did have a heart rate in the 90s medically ready for SIRS/sepsis source likely left lower lobe pneumonia concerning for possible gram-negative in this patient who did have Zosyn allergies that would limit the number of antibiotics safe to use. 2patient is status post bronchoscopy lavage as well as sputum culture which grew multidrug-resistant Pseudomonas aeruginosa resistant to meropenem sensitive to Zosyn however the patient is allergic to Zosyn 3patient did have resolution of his fever, white count has been normal BAL cultures did grow Pseudomonas as well 4patient has been treated with vancomycin pharmacy to dose and received almost 2 weeks of Avycaz, still BAL culture growing Pseudomonas we will go ahead and check a CT of the chest without contrast to see the extent of pneumonia if any Dictation was produced using [employer] software. please excuse any grammatical, word or spelling errors.
--- NOTE | 2024-07-09 14:48 | P.PN ---
Subjective Progress Note Date: 07/09/24 Patient admitted for bilateral cramping due to pneumonia gram-negative organism is not identified yet patient had Pseudomonas in the past patient underwent bronchoscopy patient remains on mechanical ventilation broad-spectrum antibiotics patient has a tracheostomy in place. Patient underwent bronchoalveolar lavage. 06/26/2024 Patient is evaluated in the ICU. Remains on the mechanical ventilator with FiO2 of 40%. Sputum culture reveals pseudomonas aeruginosa, corynebacterium striatum group. He remains on antibiotics with IV ceftazidime/Avibactam. TPN infusing. Labs today reveal white blood cell count 4.72, hgb 7.6, sodium 135, potassium 4.0, BUN 13, creatinine 0.39. Magnesium 1.9. Triglycerides of 183.00. 06/27/2024 Patient is evaluated in the intensive care unit. He is currently on the trach collar. Awake alert and oriented. Chest xray today shows left lower lobe atelectasis or pneumonia. Per mother at the bedside he was only [facility] day prior to returning to the hospital. He will likely need to [facility]. Remains on TPN. White blood cell count 5.07, hgb 7.3, sodium 134, BUN 11, creatinine 0.34. 06/28/2024 Patient is eval today in intensive care unit. He is complaining of pain in the right ear manual examination does reveal some erythema of the canal and eardrum. We will add eardrops and monitor for improvement in symptoms. Patient is awake alert oriented he has tolerated trach collar. Chest x-ray today reveals a developing left lower lobe infiltrate with a small effusion which may be present. He continues on IV meropenem for positive sputum and bronchial washings of Pseudomonas aeruginosa and corynebacterium striatum group. Labs today reveal a white blood cell count of 5.55, hemoglobin 7.4, sodium 135, BUN of 11 creatinine 0.40. 06/29/2024 Patient is evaluated in the intensive care unit he is currently downgraded and pending a bed on the medical floor. Patient is ready for discharge and did discuss with the patient that he needs to follow-up with his family and I will also talk with his family regarding discharge planning if he is able to discharge home versus subacute rehab versus LTAC. Patient is adamant that that [facility] not [facility]. Due to his complex medical needs including PEG tube, TPN, his tracheostomy, ileostomy, and IV antibiotics he may not be a candidate for subacute rehabilitation but referrals were placed by social work. He does state that his right ear feels better after being initiated on antibiotic eardrops and they will be continued at this time. His labs today reveal a white blood cell count of 5.50, hemoglobin 7.6, sodium level of 135, BUN of 9 creatinine 0.37 and magnesium level of 1.8. 06/30/2024 Patient is evaluated in follow-up in the medical floor. He has no acute complaints at this time. He does report again mild improvement in his right ear pain and he continues with the eardrops. Had a long discussion with patient's son over and over the phone regarding discharge planning. Alan is apprehensive about allowing child to return home due to his complex medical needs and somebody having to stay up with him overnight for suctioning and trach care. Open would like [facility] to [facility] for at least another month or so until his other brother comes home from college. Will need to follow-up with patient tomorrow regarding this and awaiting other referrals for any other excepting facility as patient really does not want to return to the [facility]. 07/01/2024 Patient evaluated today resting in bed. Per nursing he was lethargic overnight but seems improved today. Patient is currently a bed at a subacute rehab [facility] and social work following. He remains on IV ceftazidime/avibactam. Chest x-ray today Reveals stable chest with left-sided pleural effusion. There is opacification of the right lung base and left lung base. Patient is on TPN. Patient is afebrile, heart rate 53, blood pressure 144/67, 100% on trach collar. 07/02/2024 Patient evaluated today in follow up. No acute complaints at this time. Still pending accepting rehab facility. Remains on the IV ceftazidime/avibactam. 07/03/2024 Patient evaluated today in follow up was downgraded to the general medical floor. Report the right ear pain and fullness is better. He continues on IV ceftazidime/Avibactam and IV vancomycin for the pseudomonas in the sputum. No accepting facility so far. He may need to remain hospitalized while he finishes course of antibiotics. He is tolerating the trach collar. 07/04. Patient seen and examined. Patient was a teamed this morning for decrease responsiveness, was found to be hypoxemic, was transferred back to ICU and was placed on ventilator. Patient is currently on breathing treatments. Hemoglobin this morning was 6.8, 1 unit of packed red blood cells ordered. Patient has been started on Levophed 07/05. Patient seen and examined. Patient is currently off sedation, opening eyes. Patient received 2 units of packed red blood cells in total since yesterday, hemoglobin improved to8.3, WBC 6.03, platelet count 229, sodium 137, potassium 3.8, BUN 18, creatinine 0.34, glucose 143, phosphorus 1.8. Critical care planning to trial CPAP 07/06/2024 Patient evaluated today in the intensive care unit. He is awake alert and responsive, he is able to answer simple questions. Under bronchoscopy on 07/04 with preliminary cultures showing pseudomonas aeruginosa; corynebacterium striatum group. Chest xray shows small bilateral pleural effusions. Remains on IV antibiotics. He is on the mechanical ventilator. Hemoglobin better today at 8.5. Sodium of 135, potassium 3.4. 07/07/2024 Patient remains in the intensive care unit. He is awake alert and responsive he is able to talk with a tracheostomy in place. His repeat cultures from the bronchoscopy are showing Pseudomonas aeruginosa and Corynebacterium stratum group. He continues on antibiotics in the form of IV ADK as as well as IV vancomycin. Patient remains off pressor support at this time. ID is following closely. Chest x-ray today reveals a bilateral trace pleural effusion. Patient underwent flexible bronchoscopy today and there was no evidence of mucous plugging or thick secretions. 10 cc of respiratory secretions were suctioned out. Patient had no evidence of tracheal stenosis during the procedure. Has been difficult to wean from the vent. 07/08/2024 Patient is evaluated today in follow up in the intensive care unit. His chest xray today reveals mild pulmonary vascular congestion. He remains on the ventilator currently with FiO2 and the most recent bronchoscopy cultures are showing preliminary pseudomonas aeruginosa. He continues on IV avycaz/ IV vancomycin. Ileostomy change was performed today with son at the bedside. Labs today reveal white blood cell count 5.74, hgb 9.1, sodium 135, potassium 4.3, BUN 13, creatinine 0.29, magnesium 1.9. 07/09/2024 Patient is eval today in follow-up tensive care unit. He remains on a mechanical ventilator with plans for a trach collar trial today. Patient overall feels better and is slightly clinically improved. His repeat sputum culture revealed Pseudomonas aeruginosa. The corynebacterium striatum group is not evident. Chest CT reveals basilar infiltrates and small effusions consistent with pneumonia. Mild splenomegaly. there is moderate elevation of the right hemidiaphragm. He is on day 6 out of 10 of the IV AV cast. His white blood cell count today is 5.21 hemoglobin 10.0, sodium of 135 BUN of 14 creatinine 0.36. Patient's mother was at the bedside and all questions were answered. Review of Systems Constitutional: Denied any fatigue denied any fever. Cardio vascular: denied any chest pain, palpitations Gastrointestinal: denied any nausea, vomiting, diarrhea Pulmonary: Denied any shortness of breath cough Neurologic denied any new focal deficits All inpatient medications were reviewed and appropriate changes in these medications as dictated in the interval history and assessment and plan. PHYSICAL EXAMINATION: GENERAL: Patient is awake alert oriented x3. HEENT: Pupils are round and equally reacting to light. EOMI. No scleral icterus. No conjunctival pallor. Normocephalic, atraumatic. No pharyngeal erythema. No thyromegaly. Tracheostomy in place. CARDIOVASCULAR: S1 and S2 present. No murmurs, rubs, or gallops. PULMONARY: Chest is clear to auscultation, no wheezing or crackles. ABDOMEN: Soft, nontender, nondistended, normoactive bowel sounds. No palpable organomegaly. MUSCULOSKELETAL: No joint swelling or deformity. EXTREMITIES: No cyanosis, clubbing, or pedal edema. NEUROLOGICAL: Sedated at this time SKIN: No rashes. Assessment and plan Bilateral gram-negative pneumonia possibility of aspiration infectious disease and multiple other consultants are following the patient - Acute respiratory failure requiring mechanical ventilation status post bronchoalveolar lavage; cultures growing pseudomonas and corynebacterium. Repeat bronch reveals same cultures. pending microsensitivities. - Crohn's disease with ileostomy in the past patient is presently on TPN - Anemia with no active GI bleed s/p 3 units of PRBC - Right sided otitis media completed gtts. 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 Repeat bronchoscopy with BAL 07/04/2024 pending final cultures. Patient underwent bronchoscopy again on 07/07/2024 with cultures showing pseudomonas. Status post 3 unit of packed red blood cell Continue Lovenox Continue on Avycaz and vancomycin Remains on TPN and lipids Continue DuoNeb inhalations Pulmonology following ID following Repeat blood work Social work following for DC planning when medically stable. Patient will not be able to return to an LTAC as patient does not have any more Medicare days remaining. Pending accepting [facility] facility. The impression and plan of care has been dictated by Coral Medina Nurse Practitioner as directed. Dr. Mo MD I have performed a history and physical examination and medical decision making of this patient, discussed the same with the dictator, and agree with the dictators assessment and plan as written, documented as a scribe. Based on total visit time, I have performed more than 50% of this visit. Objective - Vital Signs Vital signs: Vital Signs Temp 98.2 F 07/09/24 12:00 Pulse 93 07/09/24 14:00 Resp 23 07/09/24 14:00 BP 115/52 07/09/24 14:00 Pulse Ox 100 07/09/24 14:00 FiO2 60 07/09/24 13:00 Intake & Output 07/08/24 07/09/24 07/09/24 18:59 06:59 18:59 Intake Total 1980 1105 1195 Output Total 1080 2800 2525 Balance 901 -1695 -1330 Weight 97.069 kg Intake: IV 935 1105 740 0.9 Normal Saline @ KVO 220 260 140 Ceftazidime/Avibactam 2.5 100 gm In Sodium Chloride 0. 9% 100 ml @ 50 mls/hr IVPB Q8H [facility] Rx#: [id number] Mvi, Adult No.4 with Vit 715 845 K 10 ml Trace (Conc-1Ml/ Dose) 1 ml Sodium Chloride 4Meq/ml Vial 48 meq Potassium Chloride 26 meq Calcium Gluconate 1 gm Magnesium Sulfate gm 1 gm Sodium Phosphate 27 mmol In Amino Acids 5 %/ Dextrose 20 % 1,000 ml @ 65 mls/hr IV .BY DURATION [facility] Rx#:[id number] Vancomycin 1,750 mg In 500 Sodium Chloride 0.9% 500 ml 500 ml @ 167 mls/hr IVPB Q16H [facility] Rx#: [id number] Intake, IV Titration 1046 Amount Sodium Chloride 4Meq/ml 1046 Vial 48 meq Potassium Chloride 26 meq Calcium Gluconate 1 gm Magnesium Sulfate gm 1 gm Sodium Phosphate 27 mmol In Amino Acids 5 %/Dextrose 20 % 1,000 ml @ 65 mls/hr IV .BY DURATION [facility] Rx#: [id number] TPN/PPN 455 Mvi, Adult No.4 with Vit 455 K 10 ml Trace (Conc-1Ml/ Dose) 1 ml Sodium Chloride 4Meq/ml Vial 48 meq Potassium Chloride 26 meq Calcium Gluconate 1 gm Magnesium Sulfate gm 1 gm Sodium Phosphate 27 mmol In Amino Acids 5 %/ Dextrose 20 % 1,000 ml @ 65 mls/hr IV .BY DURATION [facility] Rx#:[id number] Output: Urine 1080 2525 Stool 2800 Other: Voiding Method Indwelling Catheter Indwelling Catheter Indwelling Catheter # Bowel Movements 1 ABP, PAP, CO, CI - Last Documented Arterial Blood Pressure 123/52 - Labs CBC & Chem 7: 07/09/24 04:00 07/09/24 04:00 Labs: Abnormal Lab Results - Last 24 Hours (Table) 07/09/24 07/09/24 07/09/24 Range/Units 03:48 04:00 04:00 RBC 3.83 L (4.40-5.60) 10*6/uL Hgb 10.0 L (13.0-17.0) g/dL Hct 32.3 L (39.6-50.0) % MCH 26.1 L (27.0-32.0) pg MCHC 31.0 L (32.0-37.0) g/dL ABG pO2 117 H (83-108) mmHg ABG HCO3 29 H (21-25) mmol/L ABG Total CO2 31 H (19-24) mmol/L ABG O2 Saturation 99.4 H (94-97) % Hemoglobin 9.9 L (13.0-17.5) gm/dL Sodium 135 L (137-145) mmol/L Creatinine 0.36 L (0.66-1.25) mg/dL Glucose 109 H (74-99) mg/dL POC Glucose (mg/dL) (70-110) mg/dL 07/09/24 Range/Units 06:23 RBC (4.40-5.60) 10*6/uL Hgb (13.0-17.0) g/dL Hct (39.6-50.0) % MCH (27.0-32.0) pg MCHC (32.0-37.0) g/dL ABG pO2 (83-108) mmHg ABG HCO3 (21-25) mmol/L ABG Total CO2 (19-24) mmol/L ABG O2 Saturation (94-97) % Hemoglobin (13.0-17.5) gm/dL Sodium (137-145) mmol/L Creatinine (0.66-1.25) mg/dL Glucose (74-99) mg/dL POC Glucose (mg/dL) 115 H (70-110) mg/dL Microbiology - Last 24 Hours (Table) 07/07/24 09:50 Gram Stain - Final Bronchoalviolar Lavage - Left Bronchial Washings Culture - Final Pseudomonas aeruginosa 07/05/24 05:43 Blood Culture - Preliminary Blood Assessment and Plan Time with Patient: Less than 30
[2024-07-09 18:55] LABS: Glucose,Whole Blood 118 mg/dL (70-110)
[2024-07-09] MEDS: LORazepam 1 MG/0.5 ML VIAL IV PRN (18:58)
[2024-07-10] MEDS: LORazepam 2 MG/ML INJ IV PRN (03:25)
[2024-07-10 03:49] LABS: Glucose,Whole Blood 106 mg/dL (70-110)
[2024-07-10 04:03] LABS: HCT 33.1 % (39.6-50.0); HGB 9.7 g/dL (13.0-17.0); RBC 3.86 10*6/uL (4.40-5.60); WBC 5.23 10*3/uL (4.50-10.00)
[2024-07-10 04:04] LABS: Basophils # (A) 0.06 10*3/uL (0.00-0.10); Basophils % (A) 1.1 %; Eosinophils # (A) 0.22 10*3/uL (0.04-0.35); Eosinophils % (A) 4.2 %; Lymphocytes # (A) 1.45 10*3/uL (0.90-5.00); Lymphocytes % (A) 27.7 %; MCH 25.1 pg (27.0-32.0); MCHC 29.3 g/dL (32.0-37.0); MCV 85.8 fL (80.0-97.0); Monocytes # (A) 0.48 10*3/uL (0.20-1.00); Monocytes % (A) 9.2 %; Neutrophils # (A) 3.01 10*3/uL (1.80-7.70); Neutrophils % (A) 57.6 %; Platelet Count 245 10*3/uL (140-440); RDW 16.2 % (11.5-14.5)
[2024-07-10 04:31] LABS: African American GFR (CKD) >90 (>60 ml/min/1.73 sqM); Anion Gap 8 mmol/L; Blood Urea Nitrogen 15 mg/dL (9-20); Calcium 8.6 mg/dL (8.4-10.2); Carbon Dioxide 29 mmol/L (22-30); Chloride 98 mmol/L (98-107); Glucose 105 mg/dL (74-99); Magnesium 1.8 mg/dL (1.6-2.3); Non-African American GFR(CKD) >90 (>60 ml/min/1.73 sqM); Phosphorus 3.6 mg/dL (2.5-4.5); Potassium 3.8 mmol/L (3.5-5.1); Sodium 135 mmol/L (137-145)
[2024-07-10] MEDS: POTASSIUM CHLORIDE 10 MEQ in WATER FOR INJECTION 1 100ML.BAG IVPB SCH (05:30)
[2024-07-10] MEDS: MAGNESIUM SULFATE-D5W PMX 1 GM in DEXTROSE/WATER 1 100ML.BAG IVPB ONE (05:30)
--- NOTE | 2024-07-10 08:25 | XR ---
EXAMINATION TYPE: XR chest 1V portable DATE OF EXAM: 07/10/2024 4:08 AM COMPARISON: Multiple radiographs, with the most recent on 07/09/2024, CT chest 07/09/2024 TECHNIQUE: XR chest 1V portable Portable AP radiograph of the chest. CLINICAL INDICATION:Male, 49 years old with history of mechanical ventilation; FINDINGS: Lungs/Pleura: Low lung volumes are present. Small bilateral pleural effusions with bibasilar consolid ation. No pneumothorax. Pulmonary vascularity: Unremarkable. Heart/mediastinum: Cardiomediastinal silhouette is stable. Musculoskeletal: No acute osseous pathology. Other findings: Surgical clips within the right supraclavicular region. Lines/Tubes: Tracheostomy cannula in stable position. Left IJ central venous catheter with distal tip in stable position at the right atrium. IMPRESSION: 1. Small bilateral pleural effusions with bibasilar consolidation which is better appreciated on CT from yesterday. 2. Stable support lines and tubes. [facility], , 07/10/2024 8:22 AM
[2024-07-10] MEDS: busPIRone HCl 5 MG TAB PO SCH (09:59)
--- NOTE | 2024-07-10 10:29 | P.PN ---
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 Patient is obese and he has developed chronic generalized weakness, respiratory insufficiency with recurrent pneumonias requiring previous intubation and mechanical ventilation. The patient has also been treated for episodes of pneumonias in the past including pseudomonal pneumonia earlier this year. He does have also an area of tracheal stenosis related to previous tracheal manipulation and tracheostomy tube insertion. Currently he has a permanent tracheostomy tube in place to secure his airways. 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 Following his most recent hospitalization in March 2024, the patient was discharged to [facility] and following that he was discharged home where he has been taking care of by family members. Since then, the patient has done well. The patient came into the emergency department as he has stated that he has been feeling more short of breath and his dyspnea is occurring in episodes. Nevertheless, he has remained hemodynamically stable. He remains on 35 to 40% trach collar without development of any significant respiratory secretions. Blo od work has been essentially stable. The white cell count at time of admission was at 5.4 with a hemoglobin of 8.3 and a platelet count of 181. Sodium levels at 139, bicarb is at 33, BUN 23 with a creatinine of 0.35. Troponins were negative. LFTs are essentially within normal limits. Total protein was at 7.4 with an albumin of 3.5. The viral screen was negative in the emergency department. Also, the patient was given a chest x-ray that showed smaller lung volumes and poor respiratory effort. There is some cardiomegaly. No acute airspace disease or consolidation. His EKG showed a normal sinus mechanism. Based on that, the patient was hospitalized in the pulmonary consultation was r equested. He was started on empiric antibiotic coverage with IV Rocephin. Noted the patient is bedridden. He has chronic muscle atrophy and contractures in his lower extremities. He remains on therapeutic dose of Lovenox 90 mg subcu every 12 hours. On 06/21/2024, the patient feels that something is obstructing his airways. At times he is feeling short of breath. No clear explanation. There may be some anatomic problems and obstruction in his trachea as during my early bronchoscopies, I noted that the patient has an area of tracheal stenosis at the site of previous tracheostomy tube insertion. I think it would be douglas to reevaluate this patient's airway right bronchoscopy and document patency of the airway. No significant respiratory secretions for now. No fever. No chills. Blood cultures are still negative. White cell count is 6.7, hemoglobin is 8.5, BUN is 12 with a creatinine of 0.36. He remains on a 40% trach collar. Remains on TPN for nutritional support. On 07/06/2024, the patient is being seen for a follow-up. This morning, the patient is awake and alert on propofol at 50 mcg/kg/min. He remains on a mechanical ventilator on assist-control mode rate of 20, tidal volume of 450, FiO2 40% with a PEEP of 5. Blood gas showed a pH of 7.44 with a NSK038 and PO2 of 94. Chest x-ray shows small bilateral pleural effusions. The patient had normal citrate of 10 cc an hour. The patient on TPN at rate of 85 cc an hour. Output from the ileostomy bag is in the order of 400 cc over the past 24 hours. He has a triple-lumen catheter in his left femoral in addition to an arterial cath in his left femoral and a PICC line in his left subclavian. Fluid balance is +1.9 L over the past 24 hours. Respiratory status is stable. No significant fluid secretions. The patient has #6 Shiley XLT tracheostomy tube. Previous cultures were positive for Pseudomonas aeruginosa and corynebacterium and the patient is currently on ceftazidime/avibactam. The patient is also on vancomycin. Afebrile. No pressors for now. The white cell count is at 6.3 with a hemoglobin 8.5 and a platelet count of 252. Sodium is at 135, potassium is at 3.4, BUN 16 with a creatinine of 0.3. On 07/07/2024, the patient is being seen for a follow-up. The patient is awake and alert and this morning the patient is on no sedation. He did go on a PSV trial yesterday with a PSV of 5 and a PEEP of 5 and the patient lasted for a total of 1 hour. Following that, he felt short of breath. There was no significant change in his tidal volumes or tachypnea, however the patient stated that he was unable to breathe and he preferred to go back on assist-control mode. Since then, the patient has been maintained on assist-control rate of 20, tidal volume of 450, FiO2 40% with a PEEP of 5. Blood gases from today showed a pH of 7.42 with a HFQ627 and pO2 of 102. Chest x-ray remains essentially unchanged. There are some atelectatic changes in the lung bases bilaterally along with some trace pleural effusions. Tracheostomy is in a good location. Based on this ongoing failure, mucous plugging was suspected. I performed a bronchoscopy in the ICU today and the respiratory secretions were essentially scant. There was some looseness with secretions retained in the lower lobes bilaterally this was suctioned out. Nevertheless, there was no thick or purulent secretions. There was no mucous plugs. Tracheostomy tube was in a good location in the mid trachea. The patient is hemodynamically stable. The white cell count of 5.5 with a hemoglobin 8.9 and platelet count of 253. Sodium is at 136, BUN is 13 with a creatinine of 0.31. Remains on ceftazidime IV Bactrim and vancomycin combination. Remains on TPN at a rate of 85 cc an hour. Urine output is adequate. No other active issues for now. He is awake and alert. On 07/08/2024, the patient is awake and alert. Bronchoscopy was done and the respiratory secretions were scant. Another set of cultures were obtained from t he respiratory secretions and the primary culture still showing Pseudomonas aeruginosa. The patient remains on ceftazidime IV Bactrim and vancomycin per IDs recommendations. Chest x-ray findings are essentially unchanged. The patient is given daily trials of PSV. However, within a few hours of being on a PSV of 5 and a PEEP of 5, the patient gets short of breath and anxious. I was told that there is no significant tachypnea or drop in the patient's tidal volumes. Repeat chest x-ray from today shows low lung volumes with cardiomegaly and mild pulm vessel congestion. The patient hemodynamically stable on no pressors. He is afebrile. White count of 5.7 with a hemoglobin 9.1 and a plate let count of 253. Sodium is at 135, BUN 13 with a creatinine of 0.29. Potassium level is at 4.3. Fluid balance over the past 24 hours is +1.6 L. The patient remains on bronchodilators. The patient remains on TPN which is running at rate of 82 cc an hour. No other significant events overnight. He is on no sedation the patient is able to communicate On 07/09/2024, the patient is awake and alert and communicating. He was able to tolerate PSV mode of mechanical ventilation. Initially the PSV of 14 and a PEEP of 5 and ultimately this was weaned down to a PSV of 9 throughout the day. Overnight, the patient was placed on assist-control mode of mechanical ventilation. This morning, the patient is on a PSV of 9 and a PEEP of 5 and the blood gases showed a pH of 7.44 with a QKH368 and PO217. Chest x-ray findings are essentially unchanged. Doing well. No significant respiratory secretions. Most recent bronchial cultures are still showing Pseudomonas aeruginosa and the patient remains on a combination of ceftazidime IV Bactrim and vancomycin. The patient remains hemodynamically stable. The patient has no specific complaints. The patient has increased anxiety and the patient is currently on Ativan 1 mg every 8 hours IV. Respiratory medications remain unchanged. Remains on Lovenox therapeutic dose 90 mg subcu every 12 hours. Remains on TPN for nutritional support which is running at a rate of 65 cc an hour. Fluid balance is -600 cc over the past 24 hours and the patient is currently on Lasix 20 mg IV every 12 hours. Blood work from today shows a white cell count of 5.2 with a hemoglobin 10 and platelet count of 265. Sodium level is 135, BUN is 14 with a creatinine of 0.3. Glucose is 115. On 07/10/2024, the patient is awake and alert and communicating. He was able to trach collor 28% FIO2 over the past 24 hours. Started on feeding. Chest x-ray findings are essentially unchanged. Doing well. No significant respiratory secretions. Most recent bronchial cultures are still showing Pseudomonas aeruginosa and the patient remains on a combination of ceftazidime IV Bactrim and vancomycin. The patient remains hemodynamically stable. The patient has no specific complaints. The patient has increased anxiety and the patient is currently on Ativan 1 mg every 6 hours IV. Respiratory medications remain unchanged. Remains on Lovenox therapeutic dose 90 mg subcu every 12 hours. Remains on TPN for nutritional support which is running at a rate of 65 cc an hour. Fluid balance is - 1.8 L over the past 24 hours and the patient is currently on Lasix 20 mg IV every 12 hours. Blood work from today noted Objective - Vital Signs Vital signs: Vital Signs Temp 98.1 F 07/10/24 08:00 Pulse 75 07/10/24 10:00 Resp 18 07/10/24 10:00 BP 127/55 07/10/24 10:00 Pulse Ox 97 07/10/24 10:00 FiO2 28 07/10/24 10:00 Intake & Output 07/09/24 07/10/24 07/10/24 18:59 06:59 18:59 Intake Total 2507 935 540 Output Total 3125 2175 630 Balance -618 -1240 -90 Weight 95.5 kg Intake: IV 800 220 280 0.9 Normal Saline @ KVO 200 220 80 Ceftazidime/Avibactam 2.5 100 gm In Sodium Chloride 0. 9% 100 ml @ 50 mls/hr IVPB Q8H [facility] Rx#: [id number] Potassium Chloride 10 meq 200 In Water For Injection 1 100ml.bag @ 100 mls/hr IVPB Q1H [facility] Rx#: [id number] Vancomycin 1,750 mg In 500 Sodium Chloride 0.9% 500 ml 500 ml @ 167 mls/hr IVPB Q16H [facility] Rx#: [id number] Intake, IV Titration 1057 Amount Mvi, Adult No.4 with Vit 1057 K 10 ml Trace (Conc-1Ml/ Dose) 1 ml Sodium Chloride 4Meq/ml Vial 48 meq Potassium Chloride 26 meq Calcium Gluconate 1 gm Magnesium Sulfate gm 1 gm Sodium Phosphate 27 mmol In Amino Acids 5 %/ Dextrose 20 % 1,000 ml @ 65 mls/hr IV .BY DURATION [facility] Rx#:[id number] TPN/PPN 650 715 260 Mvi, Adult No.4 with Vit 650 715 260 K 10 ml Trace (Conc-1Ml/ Dose) 1 ml Sodium Chloride 4Meq/ml Vial 48 meq Potassium Chloride 26 meq Calcium Gluconate 1 gm Magnesium Sulfate gm 1 gm Sodium Phosphate 27 mmol In Amino Acids 5 %/ Dextrose 20 % 1,000 ml @ 65 mls/hr IV .BY DURATION [facility] Rx#:[id number] Output: Urine 3125 1175 630 Stool 1000 Other: Voiding Method Indwelling Catheter Indwelling Catheter Indwelling Catheter ABP, PAP, CO, CI - Last Documented Arterial Blood Pressure 149/65 - Exam GENERAL EXAM: Awake, alert 49-year-old male patient, on 28 % trach collar HEAD: Normocephalic. EYES: Normal reaction of pupils, equal size. NOSE: Clear with pink turbinates. THROAT: Tracheostomy tube secured in place. No erythema or exudates. NECK: No masses, no JVD. CHEST: No chest wall deformity. LUNGS: Equal air entry with coarse rhonchi bilaterally. CVS: S1 and S2 normal with no audible murmur, regular rhythm. ABDOMEN: Enterocutaneous fistula over the abdominal wall. No hepatosple nomegaly, normal bowel sounds. SPINE: No scoliosis or deformity SKIN: No rashes CENTRAL NERVOUS SYSTEM: No focal deficits, tone is normal in all 4 extremities. EXTREMITIES: Extensive muscle atrophy. Contractures. There is no peripheral edema. No clubbing, no cyanosis. Peripheral pulses are intact. - Labs CBC & Chem 7: 07/10/24 03:54 07/10/24 03:54 Labs: Abnormal Lab Results - Last 24 Hours (Table) 07/09/24 07/10/24 07/10/24 Range/Units 18:53 03:54 03:54 RBC 3.86 L (4.40-5.60) 10*6/uL Hgb 9.7 L (13.0-17.0) g/dL Hct 33.1 L (39.6-50.0) % MCH 25.1 L (27.0-32.0) pg MCHC 29.3 L (32.0-37.0) g/dL Sodium 135 L (137-145) mmol/L Creatinine 0.35 L (0.66-1.25) mg/dL Glucose 105 H (74-99) mg/dL POC Glucose (mg/dL) 118 H (70-110) mg/dL Microbiology - Last 24 Hours (Table) 07/07/24 09:50 Gram Stain - Final Bronchoalviolar Lavage - Left Bronchial Washings Culture - Final Pseudomonas aeruginosa Assessment and Plan Plan: Acute on chronic hypoxemic and hypercapnic respiratory failure, multifactorial. Transferred back into the intensive care unit 07/04/2024 and placed back on the mechanical ventilator. Respiratory failure was essentially due to respiratory secretions. He has chronic respiratory insufficiency and neuromuscular weakness. The patient decompensated because of pseudomonal pneumonia and respiratory secretions. He is post bronchoscopy. The patient is currently on ceftazidime avibactam. He is also on vancomycin. No significant respiratory secretions and the patient is tolerating trach collar for the past 24 hours Acute left lower lobe pneumonia. Reviewed bronchoscopy 06/22/2024 with cultures positive for Pseudomonas aeruginosa and corynebacterium striatum. Repeat bronchoscopy with BAL 07/04/2024. Cultures are still positive for the same microorganism and the patient remains on the same antibiotics which include a combination of ceftazidime and Bactrim and vancomycin. Hypotension, currently receiving fluid resuscitation, currently hemodynamically stable on no pressors Tracheal stenosis, the patient has a #6 Shiley XLT tracheostomy tube in place History of recurrent ventilator dependent respiratory failure, secondary to pneumonia and mucous plugging History of sepsis, secondary to pneumonia. Crohn's disease, with previous complication of bowel perforation s/p colectomy and diverting ileostomy. The patient also has had previous history of abdominal wall bleeding there is currently inactive and stable. The patient has a high output ileostomy Tracheobronchomalacia History of DVT History of CVA/TIA Right below the knee amputation History of asystole/cardiac arrest, 2021 Plan: Continue monitoring the resp status Continue anxiolytics and the patient will be placed on Ativan 1 mg IV every 6 hours. Add Buspar Continue Lasix 20 mg IV every 12 hours. continue on Avycaz and vancomycin, the repeat cultures from the respiratory secretions post bronchoscopy revealed Pseudomonas aeruginosa. Remains on TPN and lipids Anticoagulated with Lovenox Continue DuoNeb inhalations Protonix for GI prophylaxis Evaluation was done and 33 minutes. Time with Patient: Greater than 30
[2024-07-10 11:42] LABS: Glucose,Whole Blood 133 mg/dL (70-110)
--- NOTE | 2024-07-10 15:07 | P.PN ---
Subjective Progress Note Date: 07/10/24 Principal diagnosis: Reason for follow-up pneumonia Patient is a 49-year-old male with a past medical history significant for chron's disease in this patient who did have multiple surgeries and complication as far as abdominal surgeries did have history of recurrent pn eumonia vent dependent respiratory failure currently on a trach collar CVA TIA patient has been brought into the hospital concerning for chest pain patient also have abnormal chest x-ray concern for possible pneumonia prompting this consultation. On today's evaluation that is 07/10/2024, the patient continues to be afebrile, the patient is breathing comfortably on a trach collar denies any chest pain or worsening cough no worsening secretion through the ED or any other changes. Patient white count is 5.23, creatinine 0.35 CT of the chest shows bibasilar atelectasis/pneumonia Objective - Vital Signs Vital signs: Vital Signs Temp 98.6 F 07/10/24 12:00 Pulse 97 07/10/24 12:00 Resp 22 07/10/24 12:00 BP 127/55 07/10/24 10:00 Pulse Ox 97 07/10/24 12:00 FiO2 28 07/10/24 12:00 Intake & Output 07/09/24 07/10/24 07/10/24 18:59 06:59 18:59 Intake Total 2507 935 810 Output Total 3125 2175 1630 Balance -618 -1240 -820 Weight 95.5 kg 95.5 kg Intake: IV 800 220 420 0.9 Normal Saline @ KVO 200 220 120 Ceftazidime/Avibactam 2.5 100 100 gm In Sodium Chloride 0. 9% 100 ml @ 50 mls/hr IVPB Q8H [facility] Rx#: [id number] Potassium Chloride 10 meq 200 In Water For Injection 1 100ml.bag @ 100 mls/hr IVPB Q1H [facility] Rx#: [id number] Vancomycin 1,750 mg In 500 Sodium Chloride 0.9% 500 ml 500 ml @ 167 mls/hr IVPB Q16H [facility] Rx#: [id number] Intake, IV Titration 1057 Amount Mvi, Adult No.4 with Vit 1057 K 10 ml Trace (Conc-1Ml/ Dose) 1 ml Sodium Chloride 4Meq/ml Vial 48 meq Potassium Chloride 26 meq Calcium Gluconate 1 gm Magnesium Sulfate gm 1 gm Sodium Phosphate 27 mmol In Amino Acids 5 %/ Dextrose 20 % 1,000 ml @ 65 mls/hr IV .BY DURATION [facility] Rx#:[id number] TPN/PPN 650 715 390 Mvi, Adult No.4 with Vit 650 715 390 K 10 ml Trace (Conc-1Ml/ Dose) 1 ml Sodium Chloride 4Meq/ml Vial 48 meq Potassium Chloride 26 meq Calcium Gluconate 1 gm Magnesium Sulfate gm 1 gm Sodium Phosphate 27 mmol In Amino Acids 5 %/ Dextrose 20 % 1,000 ml @ 65 mls/hr IV .BY DURATION [facility] Rx#:[id number] Output: Urine 3125 1175 1180 Stool 1000 450 Other: Voiding Method Indwelling Catheter Indwelling Catheter Indwelling Catheter ABP, PAP, CO, CI - Last Documented Arterial Blood Pressure 130/61 - Exam GENERAL DESCRIPTION: Middle-age male intubated with a trach RESPIRATORY SYSTEM: Unlabored breathing , coarse breath sounds bilaterally HEART: S1 S2 regular rate and rhythm , ABDOMEN: Soft , no tenderness EXTREMITIES: Swelling to the leg no redness - Labs CBC & Chem 7: 07/10/24 03:54 07/10/24 11:41 Labs: Abnormal Lab Results - Last 24 Hours (Table) 07/09/24 07/10/24 07/10/24 Range/Units 18:53 03:54 03:54 RBC 3.86 L (4.40-5.60) 10*6/uL Hgb 9.7 L (13.0-17.0) g/dL Hct 33.1 L (39.6-50.0) % MCH 25.1 L (27.0-32.0) pg MCHC 29.3 L (32.0-37.0) g/dL Sodium 135 L (137-145) mmol/L Creatinine 0.35 L (0.66-1.25) mg/dL Glucose 105 H (74-99) mg/dL POC Glucose (mg/dL) 118 H (70-110) mg/dL 07/10/24 Range/Units 11:41 RBC (4.40-5.60) 10*6/uL Hgb (13.0-17.0) g/dL Hct (39.6-50.0) % MCH (27.0-32.0) pg MCHC (32.0-37.0) g/dL Sodium (137-145) mmol/L Creatinine (0.66-1.25) mg/dL Glucose (74-99) mg/dL POC Glucose (mg/dL) 133 H (70-110) mg/dL Assessment and Plan (1) Abnormal chest x-ray Current Visit: Yes Status: Acute Code(s): R93.89 - ABNORMAL FINDINGS ON DX IMAGING OF OTH BODY STRUCTURES SNOMED Code(s): 392114734 (2) Penicillin allergy Current Visit: Yes Status: Acute Code(s): Z88.0 - ALLERGY STATUS TO PENICILLIN SNOMED Code(s): 21998822 (3) Pneumonia Current Visit: No Status: Acute Code(s): J18.9 - PNEUMONIA, UNSPECIFIED ORGANISM SNOMED Code(s): 624936096 (4) Sepsis Current Visit: No Status: Acute Code(s): A41.9 - SEPSIS, UNSPECIFIED ORGANISM SNOMED Code(s): 98247197 Plan: 1patient did have worsening of his respiratory status requiring intubation and transferred to ICU also spiked a fever And did have a heart rate in the 90s medically ready for SIRS/sepsis source likely left lower lobe pneumonia conc erning for possible gram-negative in this patient who did have Zosyn allergies that would limit the number of antibiotics safe to use. 2patient is status post bronchoscopy lavage as well as sputum culture which grew multidrug-resistant Pseudomonas aeruginosa resistant to meropenem sensitive to Zosyn however the patient is allergic to Zosyn 3patient did have resolution of his fever, white count has been normal BAL cultures did grow Pseudomonas as well 4patient CT of the chest shows bibasilar atelectasis/pneumonia I will check his inflammatory markers for now continue Avycaz and vancomycin pharmacy to dose Monitor the bedside questions answered Dictation was produced using [employer] dictation software. please excuse any grammatical, word or spelling errors. Time with Patient: Less than 30
[2024-07-10 16:50] LABS: Glucose,Whole Blood 117 mg/dL (70-110)
[2024-07-10] MEDS: 1: MVI, ADULT NO.4 WITH VIT K 10 ML, TRACE (CONC-1ML/DOSE) 1 ML, SODIUM CHLORIDE 4MEQ/ML IV SCH (17:58)
[2024-07-11 00:02] LABS: Glucose,Whole Blood 138 mg/dL (70-110)
--- NOTE | 2024-07-11 02:40 | P.PN ---
Subjective Progress Note Date: 07/10/24 Patient admitted for bilateral cramping due to pneumonia gram-negative organism is not identified yet patient had Pseudomonas in the past patient underwent bronchoscopy patient remains on mechanical ventilation broad-spectrum antibiotics patient has a tracheostomy in place. Patient underwent bronchoalv eolar lavage. 06/26/2024 Patient is evaluated in the ICU. Remains on the mechanical ventilator with FiO2 of 40%. Sputum culture reveals pseudomonas aeruginosa, corynebacterium striatum group. He remains on antibiotics with IV ceftazidime/Avibactam. TPN infusing. Labs today reveal white blood cell count 4.72, hgb 7.6, sodium 135, potassium 4.0, BUN 13, creatinine 0.39. Magnesium 1.9. Triglycerides of 183.00. 06/27/2024 Patient is evaluated in the intensive care unit. He is currently on the trach collar. Awake alert and oriented. Chest xray today shows left lower lobe atelectasis or pneumonia. Per mother at the bedside he was only [facility] day prior to returning to the hospital. He will likely need to return to [facility] on DC. Remains on TPN. White blood cell count 5.07, hgb 7.3, sodium 134, BUN 11, creatinine 0.34. 06/28/2024 Patient is eval today in intensive care unit. He is complaining of pain in the right ear manual examination does reveal some erythema of the canal and eardrum. We will add eardrops and monitor for improvement in symptoms. Patient is awake alert oriented he has tolerated trach collar. Chest x-ray today reveals a developing left lower lobe infiltrate with a small effusion which may be present. He continues on IV meropenem for positive sputum and bronchial washings of Pseudomonas aeruginosa and corynebacterium striatum group. Labs today reveal a white blood cell count of 5.55, hemoglobin 7.4, sodium 135, BUN of 11 creatinine 0.40. 06/29/2024 Patient is evaluated in the intensive care unit he is currently downgraded and pending a bed on the medical floor. Patient is ready for discharge and did discuss with the patient that he needs to follow-up with his family and I will also talk with his family regarding discharge planning if he is able to discharge home versus subacute rehab versus LTAC. Patient is adamant that that [facility] not [facility]. Due to his complex medical needs including PEG tube, TPN, his tracheostomy, ileostomy, and IV antibiotics he may not be a candidate for subacute rehabilitation but referrals were placed by social work. He does state that his right ear feels better after being initiated on antibiotic eardrops and they will be continued at this time. His labs today reveal a white blood cell count of 5.50, hemoglobin 7.6, sodium level of 135, BUN of 9 creatinine 0.37 and magnesium level of 1.8. 06/30/2024 Patient is evaluated in follow-up in the medical floor. He has no acute complaints at this time. He does report again mild improvement in his right ear pain and he continues with the eardrops. Had a long discussion with patient's son over and over the phone regarding discharge planning. Alan is apprehensive about allowing child to return home due to his complex medical needs and somebody having to stay up with him overnight for suctioning and trach care. Open would like [facility] to [facility] for at least another month or so until his other brother comes home from college. Will need to follow-up with patient tomorrow regarding this and awaiting other referrals for any other excepting facility as patient really does not want to return to the [facility]. 07/01/2024 Patient evaluated today resting in bed. Per nursing he was lethargic overnight but seems improved today. Patient is currently a bed at a subacute rehab facility and social work following. He remains on IV ceftazidime/avibactam. Chest x-ray today Reveals stable chest with left-sided pleural effusion. There is opacification of the right lung base and left lung base. Patient is on TPN. Patient is afebrile, heart rate 53, blood pressure 144/67, 100% on trach collar. 07/02/2024 Patient evaluated today in follow up. No acute complaints at this time. Still pending accepting rehab facility. Remains on the IV ceftazidime/avibactam. 07/03/2024 Patient evaluated today in follow up was downgraded to the general medical floor. Report the right ear pain and fullness is better. He continues on IV ceftazidime/Avibactam and IV vancomycin for the pseudomonas in the sputum. No accepting facility so far. He may need to remain hospitalized while he finishes course of antibiotics. He is tolerating the trach collar. 07/04. Patient seen and examined. Patient was a teamed this morning for decrease responsiveness, was found to be hypoxemic, was transferred back to ICU and was placed on ventilator. Patient is currently on breathing treatments. Hemoglobin this morning was 6.8, 1 unit of packed red blood cells ordered. Patient has been started on Levophed 07/05. Patient seen and examined. Patient is currently off sedation, opening eyes. Patient received 2 units of packed red blood cells in total since yesterday, hemoglobin improved to8.3, WBC 6.03, platelet count 229, sodium 137, potassium 3.8, BUN 18, creatinine 0.34, glucose 143, phosphorus 1.8. Critical care planning to trial CPAP 07/06/2024 Patient evaluated today in the intensive care unit. He is awake alert and responsive, he is able to answer simple questions. Under bronchoscopy on 07/04 with preliminary cultures showing pseudomonas aeruginosa; corynebacterium striatum group. Chest xray shows small bilateral pleural effusions. Remains on IV antibiotics. He is on the mechanical ventilator. Hemoglobin better today at 8.5. Sodium of 135, potassium 3.4. 07/07/2024 Patient remains in the intensive care unit. He is awake alert and responsive he is able to talk with a tracheostomy in place. His repeat cultures from the bronchoscopy are showing Pseudomonas aeruginosa and Corynebacterium stratum group. He continues on antibiotics in the form of IV ADK as as well as IV vancomycin. Patient remains off pressor support at this time. ID is following closely. Chest x-ray today reveals a bilateral trace pleural effusion. Patient underwent flexible bronchoscopy today and there was no evidence of mucous plugging or thick secretions. 10 cc of respiratory secretions were suctioned out. Patient had no evidence of tracheal stenosis during the procedure. Has been difficult to wean from the vent. 07/08/2024 Patient is evaluated today in follow up in the intensive care unit. His chest xray today reveals mild pulmonary vascular congestion. He remains on the ventilator currently with FiO2 and the most recent bronchoscopy cultures are showing preliminary pseudomonas aeruginosa. He continues on IV avycaz/ IV vancomycin. Ileostomy change was performed today with son at the bedside. Labs today reveal white blood cell count 5.74, hgb 9.1, sodium 135, potassium 4.3, BUN 13, creatinine 0.29, magnesium 1.9. 07/09/2024 Patient is eval today in follow-up tensive care unit. He remains on a mechanical ventilator with plans for a trach collar trial today. Patient overall feels better and is slightly clinically improved. His repeat sputum c ulture revealed Pseudomonas aeruginosa. The corynebacterium striatum group is not evident. Chest CT reveals basilar infiltrates and small effusions consistent with pneumonia. Mild splenomegaly. there is moderate elevation of the right hemidiaphragm. He is on day 6 out of 10 of the IV AV cast. His white blood cell count today is 5.21 hemoglobin 10.0, sodium of 135 BUN of 14 creatinine 0.36. Patient's mother was at the bedside and all questions were answered. 07/10/2024 Patient is seen in follow-up currently sitting up in bed eating with mother at the bedside feeding. Patient continues on trach collar 08/12 and reports to feeling well. Patient continues on IV antibiotics as sputum cultures continue to reveal Pseudomonas with pulmonary following as well. Social work/case management following looking into possible ECF as patient has no remaining days left at LTAC. Labs are stable at this time and will follow-up on repeat labs. Replace electrolytes per protocol and being monitored closely as patient remains on TPN. Review of Systems Constitutional: Denied any fatigue denied any fever. Cardio vascular: denied any chest pain, palpitations Gastrointestinal: denied any nausea, vomiting, diarrhea Pulmonary: Denied any shortness of breath cough Neurologic denied any new focal deficits All inpatient medications were reviewed and appropriate changes in these medications as dictated in the interval history and assessment and plan. PHYSICAL EXAMINATION: GENERAL: Patient is awake alert oriented x3. Well-developed, appears older than stated age, obese HEENT: Pupils are round and equally reacting to light. EOMI. No scleral icterus. No conjunctival pallor. Normocephalic, atraumatic. No pharyngeal erythema. No thyromegaly. Tracheostomy in place. CARDIOVASCULAR: S1 and S2 muffled PULMONARY: Diminished breath sounds bilaterally otherwise chest is clear to auscultation, no wheezing or crackles. ABDOMEN: Soft, nontender, nondistended, normoactive bowel sounds. No palpable organomegaly. MUSCULOSKELETAL: No joint swelling or deformity. EXTREMITIES: No cyanosis, clubbing, or pedal edema. NEUROLOGICAL: Sedated at this time SKIN: No rashes. Assessment: Bilateral gram-negative pneumonia likely secondary to aspiration - Acute respiratory failure requiring mechanical ventilation status post bronchoalveolar lavage; cultures growing pseudomonas and corynebacterium. Repeat bronch reveals same cultures. pending microsensitivities. - Crohn's disease with ileostomy in the past patient is presently on TPN - Anemia with no active GI bleed s/p 3 units of PRBC - Right sided otitis media completed gtts. 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 Repeat bronchoscopy with BAL 07/04/2024 pending final cultures. Patient underwent bronchoscopy again on 07/07/2024 with cultures showing pseudomonas. Infectious diseases following and will continue on antibiotics Status post 3 unit of packed red blood cell and hemoglobin is stable with no active bleeding noted Continue Lovenox Continue on Avycaz and vancomycin Remains on TPN and lipids Continue DuoNeb inhalations Social work following for DC planning when medically stable. Patient will not be able to return to an LTAC as patient does not have any more Medicare days remaining. Pending accepting [facility] facility. Case management is following and has placed multiple referrals The impression and plan of care has been dictated by Alyssa Hernandez Nurse Practitioner as directed. Dr. Mo MD I have performed a history and physical examination and medical decision making of this patient, discussed the same with the dictator, and agree with the dictators assessment and plan as written, documented as a scribe. Based on total visit time, I have performed more than 50% of this visit. Objective - Vital Signs Vital signs: Vital Signs Temp 98.1 F 07/10/24 00:00 Pulse 82 07/10/24 08:53 Resp 15 07/10/24 07:00 BP 115/52 07/09/24 14:00 Pulse Ox 97 07/10/24 07:00 FiO2 28 07/10/24 08:41 Intake & Output 07/09/24 07/10/24 07/10/24 18:59 06:59 18:59 Intake Total 2507 935 85 Output Total 3125 2175 80 Balance -618 1240 5 Weight 95.5 kg Intake: IV 800 220 20 0.9 Normal Saline @ KVO 200 220 20 Ceftazidime/Avibactam 2.5 100 gm In Sodium Chloride 0. 9% 100 ml @ 50 mls/hr IVPB Q8H [facility] Rx#: [id number] Vancomycin 1,750 mg In 500 Sodium Chloride 0.9% 500 ml 500 ml @ 167 mls/hr IVPB Q16H [facility] Rx#: [id number] Intake, IV Titration 1057 Amount Mvi, Adult No.4 with Vit 1057 K 10 ml Trace (Conc-1Ml/ Dose) 1 ml Sodium Chloride 4Meq/ml Vial 48 meq Potassium Chloride 26 meq Calcium Gluconate 1 gm Magnesium Sulfate gm 1 gm Sodium Phosphate 27 mmol In Amino Acids 5 %/ Dextrose 20 % 1,000 ml @ 65 mls/hr IV .[facility] Rx#:[id number] TPN/PPN 650 715 65 Mvi, Adult No.4 with Vit 650 715 65 K 10 ml Trace (Conc-1Ml/ Dose) 1 ml Sodium Chloride 4Meq/ml Vial 48 meq Potassium Chloride 26 meq Calcium Gluconate 1 gm Magnesium Sulfate gm 1 gm Sodium Phosphate 27 mmol In Amino Acids 5 %/ Dextrose 20 % 1,000 ml @ 65 mls/hr IV .[facility] Rx#:[id number] Output: Urine 3125 1175 80 Stool 1000 Other: Voiding Method Indwelling Catheter Indwelling Catheter ABP, PAP, CO, CI - Last Documented Arterial Blood Pressure 141/62 - Labs CBC & Chem 7: 07/10/24 03:54 07/10/24 11:41 Labs: Abnormal Lab Results - Last 24 Hours (Table) 07/09/24 07/10/24 07/10/24 Range/Units 18:53 03:54 03:54 RBC 3.86 L (4.40-5.60) 10*6/uL Hgb 9.7 L (13.0-17.0) g/dL Hct 33.1 L (39.6-50.0) % MCH 25.1 L (27.0-32.0) pg MCHC 29.3 L (32.0-37.0) g/dL Sodium 135 L (137-145) mmol/L Creatinine 0.35 L (0.66-1.25) mg/dL Glucose 105 H (74-99) mg/dL POC Glucose (mg/dL) 118 H (70-110) mg/dL Microbiology - Last 24 Hours (Table) 07/07/24 09:50 Gram Stain - Final Bronchoalviolar Lavage - Left Bronchial Washings Culture - Final Pseudomonas aeruginosa
[2024-07-11 05:02] LABS: ABG Base Excess 5.3 mmol/L; ABG HCO3 32 mmol/L (21-25); ABG Oxygen Saturation 97.7 % (94-97); ABG PCO2 58 mmHg (35-45); ABG PH 7.35 (7.35-7.45); ABG PO2 93 mmHg (83-108); ABG TCO2 34 mmol/L (19-24)
[2024-07-11 05:03] LABS: Allen Test Performed? No
[2024-07-11 07:02] LABS: Glucose,Whole Blood 113 mg/dL (70-110)
[2024-07-11 07:09] LABS: African American GFR (CKD) >90 (>60 ml/min/1.73 sqM); Anion Gap 10 mmol/L; Blood Urea Nitrogen 17 mg/dL (9-20); Carbon Dioxide 30 mmol/L (22-30); Chloride 98 mmol/L (98-107); Glucose 119 mg/dL (74-99); Non-African American GFR(CKD) >90 (>60 ml/min/1.73 sqM); Phosphorus 3.3 mg/dL (2.5-4.5); Potassium 3.9 mmol/L (3.5-5.1); Sodium 138 mmol/L (137-145)
[2024-07-11 11:47] LABS: Glucose,Whole Blood 120 mg/dL (70-110)
--- NOTE | 2024-07-11 13:24 | P.PN ---
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 Patient is obese and he has developed chronic generalized weakness, respiratory insufficiency with recurrent pneumonias requiring previous intubation and mechanical ventilation. The patient has also been treated for episodes of pneumonias in the past including pseudomonal pneumonia earlier this year. He does have also an area of tracheal stenosis related to previous tracheal manipulation and tracheostomy tube insertion. Currently he has a permanent tracheostomy tube in place to secure his airways. 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 Following his most recent hospitalization in March 2024, the patient was discharged to [facility] and following that he was discharged home where he has been taking care of by family members. Since then, the patient has done well. The patient came into the emergency department as he has stated that he has been feeling more short of breath and his dyspnea is occurring in episodes. Nevertheless, he has remained hemodynamically stable. He remains on 35 to 40% trach collar without development of any significant respiratory secretions. Blo od work has been essentially stable. The white cell count at time of admission was at 5.4 with a hemoglobin of 8.3 and a platelet count of 181. Sodium levels at 139, bicarb is at 33, BUN 23 with a creatinine of 0.35. Troponins were negative. LFTs are essentially within normal limits. Total protein was at 7.4 with an albumin of 3.5. The viral screen was negative in the emergency department. Also, the patient was given a chest x-ray that showed smaller lung volumes and poor respiratory effort. There is some cardiomegaly. No acute airspace disease or consolidation. His EKG showed a normal sinus mechanism. Based on that, the patient was hospitalized in the pulmonary consultation was r equested. He was started on empiric antibiotic coverage with IV Rocephin. Noted the patient is bedridden. He has chronic muscle atrophy and contractures in his lower extremities. He remains on therapeutic dose of Lovenox 90 mg subcu every 12 hours. On 06/21/2024, the patient feels that something is obstructing his airways. At times he is feeling short of breath. No clear explanation. There may be some anatomic problems and obstruction in his trachea as during my early bronchoscopies, I noted that the patient has an area of tracheal stenosis at the site of previous tracheostomy tube insertion. I think it would be douglas to reevaluate this patient's airway right bronchoscopy and document patency of the airway. No significant respiratory secretions for now. No fever. No chills. Blood cultures are still negative. White cell count is 6.7, hemoglobin is 8.5, BUN is 12 with a creatinine of 0.36. He remains on a 40% trach collar. Remains on TPN for nutritional support. On 07/06/2024, the patient is being seen for a follow-up. This morning, the patient is awake and alert on propofol at 50 mcg/kg/min. He remains on a mechanical ventilator on assist-control mode rate of 20, tidal volume of 450, FiO2 40% with a PEEP of 5. Blood gas showed a pH of 7.44 with a GUE179 and PO2 of 94. Chest x-ray shows small bilateral pleural effusions. The patient had normal citrate of 10 cc an hour. The patient on TPN at rate of 85 cc an hour. Output from the ileostomy bag is in the order of 400 cc over the past 24 hours. He has a triple-lumen catheter in his left femoral in addition to an arterial cath in his left femoral and a PICC line in his left subclavian. Fluid balance is +1.9 L over the past 24 hours. Respiratory status is stable. No significant fluid secretions. The patient has #6 Shiley XLT tracheostomy tube. Previous cultures were positive for Pseudomonas aeruginosa and corynebacterium and the patient is currently on ceftazidime/avibactam. The patient is also on vancomycin. Afebrile. No pressors for now. The white cell count is at 6.3 with a hemoglobin 8.5 and a platelet count of 252. Sodium is at 135, potassium is at 3.4, BUN 16 with a creatinine of 0.3. On 07/07/2024, the patient is being seen for a follow-up. The patient is awake and alert and this morning the patient is on no sedation. He did go on a PSV trial yesterday with a PSV of 5 and a PEEP of 5 and the patient lasted for a total of 1 hour. Following that, he felt short of breath. There was no significant change in his tidal volumes or tachypnea, however the patient stated that he was unable to breathe and he preferred to go back on assist-control mode. Since then, the patient has been maintained on assist-control rate of 20, tidal volume of 450, FiO2 40% with a PEEP of 5. Blood gases from today showed a pH of 7.42 with a TBA945 and pO2 of 102. Chest x-ray remains essentially unchanged. There are some atelectatic changes in the lung bases bilaterally along with some trace pleural effusions. Tracheostomy is in a good location. Based on this ongoing failure, mucous plugging was suspected. I performed a bronchoscopy in the ICU today and the respiratory secretions were essentially scant. There was some looseness with secretions retained in the lower lobes bilaterally this was suctioned out. Nevertheless, there was no thick or purulent secretions. There was no mucous plugs. Tracheostomy tube was in a good location in the mid trachea. The patient is hemodynamically stable. The white cell count of 5.5 with a hemoglobin 8.9 and platelet count of 253. Sodium is at 136, BUN is 13 with a creatinine of 0.31. Remains on ceftazidime IV Bactrim and vancomycin combination. Remains on TPN at a rate of 85 cc an hour. Urine output is adequate. No other active issues for now. He is awake and alert. On 07/08/2024, the patient is awake and alert. Bronchoscopy was done and the respiratory secretions were scant. Another set of cultures were obtained from t he respiratory secretions and the primary culture still showing Pseudomonas aeruginosa. The patient remains on ceftazidime IV Bactrim and vancomycin per IDs recommendations. Chest x-ray findings are essentially unchanged. The patient is given daily trials of PSV. However, within a few hours of being on a PSV of 5 and a PEEP of 5, the patient gets short of breath and anxious. I was told that there is no significant tachypnea or drop in the patient's tidal volumes. Repeat chest x-ray from today shows low lung volumes with cardiomegaly and mild pulm vessel congestion. The patient hemodynamically stable on no pressors. He is afebrile. White count of 5.7 with a hemoglobin 9.1 and a plate let count of 253. Sodium is at 135, BUN 13 with a creatinine of 0.29. Potassium level is at 4.3. Fluid balance over the past 24 hours is +1.6 L. The patient remains on bronchodilators. The patient remains on TPN which is running at rate of 82 cc an hour. No other significant events overnight. He is on no sedation the patient is able to communicate On 07/09/2024, the patient is awake and alert and communicating. He was able to tolerate PSV mode of mechanical ventilation. Initially the PSV of 14 and a PEEP of 5 and ultimately this was weaned down to a PSV of 9 throughout the day. Overnight, the patient was placed on assist-control mode of mechanical ventilation. This morning, the patient is on a PSV of 9 and a PEEP of 5 and the blood gases showed a pH of 7.44 with a IAR020 and PO217. Chest x-ray findings are essentially unchanged. Doing well. No significant respiratory secretions. Most recent bronchial cultures are still showing Pseudomonas aeruginosa and the patient remains on a combination of ceftazidime IV Bactrim and vancomycin. The patient remains hemodynamically stable. The patient has no specific complaints. The patient has increased anxiety and the patient is currently on Ativan 1 mg every 8 hours IV. Respiratory medications remain unchanged. Remains on Lovenox therapeutic dose 90 mg subcu every 12 hours. Remains on TPN for nutritional support which is running at a rate of 65 cc an hour. Fluid balance is -600 cc over the past 24 hours and the patient is currently on Lasix 20 mg IV every 12 hours. Blood work from today shows a white cell count of 5.2 with a hemoglobin 10 and platelet count of 265. Sodium level is 135, BUN is 14 with a creatinine of 0.3. Glucose is 115. On 07/10/2024, the patient is awake and alert and communicating. He was able to trach collor 28% FIO2 over the past 24 hours. Started on feeding. Chest x-ray findings are essentially unchanged. Doing well. No significant respiratory secretions. Most recent bronchial cultures are still showing Pseudomonas aeruginosa and the patient remains on a combination of ceftazidime IV Bactrim and vancomycin. The patient remains hemodynamically stable. The patient has no specific complaints. The patient has increased anxiety and the patient is currently on Ativan 1 mg every 6 hours IV. Respiratory medications remain unchanged. Remains on Lovenox therapeutic dose 90 mg subcu every 12 hours. Remains on TPN for nutritional support which is running at a rate of 65 cc an hour. Fluid balance is - 1.8 L over the past 24 hours and the patient is currently on Lasix 20 mg IV every 12 hours. Blood work from today noted 07/11/2024, the patient remains on a trach collar and the patient on 28% trach collar for the past 48 hours. Denies any difficulties. Awake and alert and communicating. Continues to be on TPN rate of 22 cc an hour. Continues to be in place 20 mg and 5012 hours. Fluid balance is negative in the order of 1.1 L over the past 24 hours. Calm and comfortable. Anxiety is well treated and the patient is currently on buspirone and Ativan. BUN 17 with a creatinine of 0.4. Sodium levels at 138 and potassium level is at 3.9. Bronchodilators are still being administered. No significant respiratory secretions. Patient looks to be quite comfortable. Remains on ceftazidime avibactam regarding ongoing pseudomonal pneumonia/infection. Remains on vancomycin. ID is on the case. Remains on Lovenox 90 mg SQ every 12 hours. Objective - Vital Signs Vital signs: Vital Signs Temp 98.5 F 07/11/24 12:00 Pulse 96 07/11/24 12:00 Resp 26 H 07/11/24 12:00 BP 127/55 07/10/24 10:00 Pulse Ox 95 07/11/24 12:00 FiO2 28 07/11/24 12:00 Intake & Output 07/10/24 07/11/24 07/11/24 18:59 06:59 18:59 Intake Total 2024 1155 1160 Output Total 2845 1450 1910 Balance -820 -295 -750 Weight 95.5 kg 92.7 kg Intake: IV 4895 328 6918 0.9 Normal Saline @ KVO 260 220 135 Ceftazidime/Avibactam 2.5 200 100 gm In Sodium Chloride 0. 9% 100 ml @ 50 mls/hr IVPB Q8H [facility] Rx#: [id number] Mvi, Adult No.4 with Vit 425 K 10 ml Trace (Conc-1Ml/ Dose) 1 ml Sodium Chloride 4Meq/ml Vial 60 meq Potassium Chloride 30 meq Calcium Gluconate 1 gm Magnesium Sulfate gm 1 .25 gm Sodium Phosphate 27 mmol In Amino Acids 5 %/Dextrose 20 % 1,000 ml @ 85 mls/hr IV .BY DURATION [facility] Rx#: [id number] Potassium Chloride 10 meq 200 In Water For Injection 1 100ml.bag @ 100 mls/hr IVPB Q1H [facility] Rx#: [id number] Vancomycin 1,750 mg In 500 500 Sodium Chloride 0.9% 500 ml 500 ml @ 167 mls/hr IVPB Q16H [facility] Rx#: [id number] TPN/PPN 865 935 Mvi, Adult No.4 with Vit 780 K 10 ml Trace (Conc-1Ml/ Dose) 1 ml Sodium Chloride 4Meq/ml Vial 48 meq Potassium Chloride 26 meq Calcium Gluconate 1 gm Magnesium Sulfate gm 1 gm Sodium Phosphate 27 mmol In Amino Acids 5 %/ Dextrose 20 % 1,000 ml @ 65 mls/hr IV .BY DURATION [facility] Rx#:[id number] Mvi, Adult No.4 with Vit 85 935 K 10 ml Trace (Conc-1Ml/ Dose) 1 ml Sodium Chloride 4Meq/ml Vial 60 meq Potassium Chloride 30 meq Calcium Gluconate 1 gm Magnesium Sulfate gm 1 .25 gm Sodium Phosphate 27 mmol In Amino Acids 5 %/Dextrose 20 % 1,000 ml @ 85 mls/hr IV .BY DURATION [facility] Rx#: [id number] Output: Gastric Drainage 400 Urine 1795 1450 1510 Stool 1050 Other: Voiding Method Indwelling Catheter Indwelling Catheter Indwelling Catheter ABP, PAP, CO, CI - Last Documented Arterial Blood Pressure 145/66 - Exam GENERAL EXAM: Awake, alert 49-year-old male patient, on 28 % trach collar HEAD: Normocephalic. EYES: Normal reaction of pupils, equal size. NOSE: Clear with pink turbinates. THROAT: Tracheostomy tube secured in place. No erythema or exudates. NECK: No masses, no JVD. CHEST: No chest wall deformity. LUNGS: Equal air entry with coarse rhonchi bilaterally. CVS: S1 and S2 normal with no audible murmur, regular rhythm. ABDOMEN: Enterocutaneous fistula over the abdominal wall. No hepatosplenomegaly, normal bowel sounds. SPINE: No scoliosis or deformity SKIN: No rashes CENTRAL NERVOUS SYSTEM: No focal deficits, tone is normal in all 4 extremities. EXTREMITIES: Extensive muscle atrophy. Contractures. There is no peripheral edema. No clubbing, no cyanosis. Peripheral pulses are intact. - Labs CBC & Chem 7: 07/10/24 03:54 07/11/24 05:40 Labs: Abnormal Lab Results - Last 24 Hours (Table) 07/10/24 07/11/24 07/11/24 Range/Units 16:48 00:00 04:58 ABG pCO2 58 H (35-45) mmHg ABG HCO3 32 H (21-25) mmol/L ABG Total CO2 34 H (19-24) mmol/L ABG O2 Saturation 97.7 H (94-97) % Hemoglobin 10.7 L (13.0-17.5) gm/dL Creatinine (0.66-1.25) mg/dL Glucose (74-99) mg/dL POC Glucose (mg/dL) 117 H 138 H (70-110) mg/dL 07/11/24 07/11/24 07/11/24 Range/Units 05:40 07:01 11:45 ABG pCO2 (35-45) mmHg ABG HCO3 (21-25) mmol/L ABG Total CO2 (19-24) mmol/L ABG O2 Saturation (94-97) % Hemoglobin (13.0-17.5) gm/dL Creatinine 0.40 L (0.66-1.25) mg/dL Glucose 119 H (74-99) mg/dL POC Glucose (mg/dL) 113 H 120 H (70-110) mg/dL Microbiology - Last 24 Hours (Table) 07/05/24 05:43 Blood Culture - Final Blood Assessment and Plan Plan: Acute on chronic hypoxemic and hypercapnic respiratory failure, multifactorial. Transferred back into the intensive care unit 07/04/2024 and placed back on the mechanical ventilator. Respiratory failure was essentially due to respiratory secretions. He has chronic respiratory insufficiency and neuromuscular weakness. The patient decompensated because of pseudomonal pneumonia and respiratory secretions. He is post bronchoscopy. The patient is currently on ceftazidime avibactam. He is also on vancomycin. No significant respiratory secretions and the patient is tolerating trach collar for the past 48 hours Acute left lower lobe pneumonia. Reviewed bronchoscopy 06/22/2024 with cultures positive for Pseudomonas aeruginosa and corynebacterium striatum. Repeat bronchoscopy with BAL 07/04/2024. Cultures are still positive for the same microorganism and the patient remains on the same antibiotics which include a combination of ceftazidime IV Bactrim and vancomycin. Chest x-ray findings have been essentially stable. No evidence of any acute airspace disease or infiltrates. Atelectatic changes in lung bases. Hypotension, currently receiving fluid resuscitation, currently hemodynamically stable on no pressors Tracheal stenosis, the patient has a #6 Shiley XLT tracheostomy tube in place History of recurrent ventilator dependent respiratory failure, secondary to pneumonia and mucous plugging History of sepsis, secondary to pneumonia. Crohn's disease, with previous complication of bowel perforation s/p colectomy and diverting ileostomy. The patient also has had previous history of abdominal wall bleeding there is currently inactive and stable. The patient has a high output ileostomy Tracheobronchomalacia History of DVT History of CVA/TIA Right below the knee amputation History of asystole/cardiac arrest, 2021 Plan: Continue monitoring the resp status, the patient has been on trach collar for the past 48 hours with 28% FiO2. Continue anxiolytics and the patient will be placed on Ativan 1 mg IV every 6 hours. continue BuSpar 15 mg p.o. twice a day Continue Lasix 20 mg IV every 12 hours. continue on Avycaz and vancomycin, the repeat cultures from the respiratory secretions post bronchoscopy revealed Pseudomonas aeruginosa. Remains on TPN and lipids Anticoagulated with Lovenox Continue DuoNeb inhalations Protonix for GI prophylaxis Evaluation was done and 33 minutes. Time with Patient: Greater than 30
--- NOTE | 2024-07-11 14:44 | P.PN ---
Subjective Progress Note Date: 07/11/24 Principal diagnosis: Reason for follow-up pneumonia Patient is a 49-year-old male with a past medical history significant for chron's disease in this patient who did have multiple surgeries and complication as far as abdominal surgeries did have history of recurrent pn eumonia vent dependent respiratory failure currently on a trach collar CVA TIA patient has been brought into the hospital concerning for chest pain patient also have abnormal chest x-ray concern for possible pneumonia prompting this consultation. On today's evaluation that is 07/11/2024, Patient is afebrile patient is currently on 5 L trach collar and is breathing comfortably denies any chest pain or worsening cough no nausea no vomiting and no new symptoms. Patient white count is 5.23 as of yesterday creatinine 0.40 ps0.64(0.46 Objective - Vital Signs Vital signs: Vital Signs Temp 98.3 F 07/11/24 08:00 Pulse 85 07/11/24 11:00 Resp 22 07/11/24 11:00 BP 127/55 07/10/24 10:00 Pulse Ox 97 07/11/24 11:00 FiO2 28 07/11/24 11:52 Intake & Output 07/10/24 07/11/24 07/11/24 18:59 06:59 18:59 Intake Total 2024 1155 736 Output Total 2844 1450 1360 Balance -820 -295 -624 Weight 95.5 kg 92.7 kg Intake: IV 1160 220 736 0.9 Normal Saline @ KVO 260 220 66 Ceftazidime/Avibactam 2.5 200 gm In Sodium Chloride 0. 9% 100 ml @ 50 mls/hr IVPB Q8H [facility] Rx#: [id number] Mvi, Adult No.4 with Vit 170 K 10 ml Trace (Conc-1Ml/ Dose) 1 ml Sodium Chloride 4Meq/ml Vial 60 meq Potassium Chloride 30 meq Calcium Gluconate 1 gm Magnesium Sulfate gm 1 .25 gm Sodium Phosphate 27 mmol In Amino Acids 5 %/Dextrose 20 % 1,000 ml @ 85 mls/hr IV .BY DURATION [facility] Rx#: [id number] Potassium Chloride 10 meq 200 In Water For Injection 1 100ml.bag @ 100 mls/hr IVPB Q1H [facility] Rx#: [id number] Vancomycin 1,750 mg In 500 500 Sodium Chloride 0.9% 500 ml 500 ml @ 167 mls/hr IVPB Q16H [facility] Rx#: [id number] TPN/PPN 865 935 Mvi, Adult No.4 with Vit 780 K 10 ml Trace (Conc-1Ml/ Dose) 1 ml Sodium Chloride 4Meq/ml Vial 48 meq Potassium Chloride 26 meq Calcium Gluconate 1 gm Magnesium Sulfate gm 1 gm Sodium Phosphate 27 mmol In Amino Acids 5 %/ Dextrose 20 % 1,000 ml @ 65 mls/hr IV .BY DURATION [facility] Rx#:[id number] Mvi, Adult No.4 with Vit 85 935 K 10 ml Trace (Conc-1Ml/ Dose) 1 ml Sodium Chloride 4Meq/ml Vial 60 meq Potassium Chloride 30 meq Calcium Gluconate 1 gm Magnesium Sulfate gm 1 .25 gm Sodium Phosphate 27 mmol In Amino Acids 5 %/Dextrose 20 % 1,000 ml @ 85 mls/hr IV .BY DURATION [facility] Rx#: [id number] Output: Gastric Drainage 400 Urine 1795 1450 960 Stool 1050 Other: Voiding Method Indwelling Catheter Indwelling Catheter ABP, PAP, CO, CI - Last Documented Arterial Blood Pressure 121/54 - Exam GENERAL DESCRIPTION: Middle-age male intubated with a trach RESPIRATORY SYSTEM: Unlabored breathing , coarse breath sounds bilaterally HEART: S1 S2 regular rate and rhythm , ABDOMEN: Soft , no tenderness EXTREMITIES: Swelling to the leg no redness - Labs CBC & Chem 7: 07/10/24 03:54 07/11/24 05:40 Labs: Abnormal Lab Results - Last 24 Hours (Table) 07/10/24 07/11/24 07/11/24 Range/Units 16:48 00:00 04:58 ABG pCO2 58 H (35-45) mmHg ABG HCO3 32 H (21-25) mmol/L ABG Total CO2 34 H (19-24) mmol/L ABG O2 Saturation 97.7 H (94-97) % Hemoglobin 10.7 L (13.0-17.5) gm/dL Creatinine (0.66-1.25) mg/dL Glucose (74-99) mg/dL POC Glucose (mg/dL) 117 H 138 H (70-110) mg/dL 07/11/24 07/11/24 07/11/24 Range/Units 05:40 07:01 11:45 ABG pCO2 (35-45) mmHg ABG HCO3 (21-25) mmol/L ABG Total CO2 (19-24) mmol/L ABG O2 Saturation (94-97) % Hemoglobin (13.0-17.5) gm/dL Creatinine 0.40 L (0.66-1.25) mg/dL Glucose 119 H (74-99) mg/dL POC Glucose (mg/dL) 113 H 120 H (70-110) mg/dL Microbiology - Last 24 Hours (Table) 07/05/24 05:43 Blood Culture - Final Blood Assessment and Plan (1) Abnormal chest x-ray Current Visit: Yes Status: Acute Code(s): R93.89 - ABNORMAL FINDINGS ON DX IMAGING OF OTH BODY STRUCTURES SNOMED Code(s): 345591777 (2) Penicillin allergy Current Visit: Yes Status: Acute Code(s): Z88.0 - ALLERGY STATUS TO PENICILLIN SNOMED Code(s): 40080622 (3) Pneumonia Current Visit: No Status: Acute Code(s): J18.9 - PNEUMONIA, UNSPECIFIED ORGANISM SNOMED Code(s): 267479752 (4) Sepsis Current Visit: No Status: Acute Code(s): A41.9 - SEPSIS, UNSPECIFIED ORGANISM SNOMED Code(s): 64269483 Plan: 1patient did have worsening of his respiratory status requiring intubation and transferred to ICU also spiked a fever And did have a heart rate in the 90s medi yaneli ready for SIRS/sepsis source likely left lower lobe pneumonia concerning for possible gram-negative in this patient who did have Zosyn allergies that would limit the number of antibiotics safe to use. 2patient is status post bronchoscopy lavage as well as sputum culture which grew multidrug-resistant Pseudomonas aeruginosa resistant to meropenem sensitive to Zosyn however the patient is allergic to Zosyn 3patient did have resolution of his fever, white count has been normal BAL cultures did grow Pseudomonas as well 4patient CT of the chest shows bibasilar atelectasis/pneumonia for the patient inflammatory markers are not normal but more likely dealing with atelectasis rather than persistent pneumonia May continue Vanco and avycaz while inpatient but no need for antibiotic on discharge this was explained to the patient and the mother in layman terms Dictation was produced using [employer] software. please excuse any grammatical, word or spelling errors. Time with Patient: Less than 30
--- NOTE | 2024-07-11 16:00 | P.PN ---
Subjective Progress Note Date: 07/11/24 Patient admitted for bilateral cramping due to pneumonia gram-negative organism is not identified yet patient had Pseudomonas in the past patient underwent bronchoscopy patient remains on mechanical ventilation broad-spectrum antibiotics patient has a tracheostomy in place. Patient underwent bronchoalveolar lavage. 06/26/2024 Patient is evaluated in the ICU. Remains on the mechanical ventilator with FiO2 of 40%. Sputum culture reveals pseudomonas aeruginosa, corynebacterium striatum group. He remains on antibiotics with IV ceftazidime/Avibactam. TPN infusing. Labs today reveal white blood cell count 4.72, hgb 7.6, sodium 135, potassium 4.0, BUN 13, creatinine 0.39. Magnesium 1.9. Triglycerides of 183.00. 06/27/2024 Patient is evaluated in the intensive care unit. He is currently on the trach collar. Awake alert and oriented. Chest xray today shows left lower lobe atelectasis or pneumonia. Per mother at the bedside he was only home from the [facility] for one day prior to returning to the hospital. He will likely need to return to [facility] on DC. Remains on TPN. White blood cell count 5.07, hgb 7.3, sodium 134, BUN 11, creatinine 0.34. 06/28/2024 Patient is eval today in intensive care unit. He is complaining of pain in the right ear manual examination does reveal some erythema of the canal and eardrum. We will add eardrops and monitor for improvement in symptoms. Patient is awake alert oriented he has tolerated trach collar. Chest x-ray today reveals a developing left lower lobe infiltrate with a small effusion which may be present. He continues on IV meropenem for positive sputum and bronchial washings of Pseudomonas aeruginosa and corynebacterium striatum group. Labs today reveal a white blood cell count of 5.55, hemoglobin 7.4, sodium 135, BUN of 11 creatinine 0.40. 06/29/2024 Patient is evaluated in the intensive care unit he is currently downgraded and pending a bed on the medical floor. Patient is ready for discharge and did discuss with the patient that he needs to follow-up with his family and I will also talk with his family regarding discharge planning if he is able to discharge home versus subacute rehab versus LTAC. Patient is adamant that that he will not [facility]. Due to his complex medical needs including PEG tube, TPN, his tracheostomy, ileostomy, and IV antibiotics he may not be a candidate for subacute rehabilitation but referrals were placed by social work. He does state that his right ear feels better after being initiated on antibiotic eardrops and they will be continued at this time. His labs today reveal a white blood cell count of 5.50, hemoglobin 7.6, sodium level of 135, BUN of 9 creatinine 0.37 and magnesium level of 1.8. 06/30/2024 Patient is evaluated in follow-up in the medical floor. He has no acute complaints at this time. He does report again mild improvement in his right ear pain and he continues with the eardrops. Had a long discussion with patient's son over and over the phone regarding discharge planning. Alan is apprehensive about allowing child to return home due to his complex medical needs and somebody having to stay up with him overnight for suctioning and trach care. Open would like him to return to the [facility] for at least another month or so until his other brother comes home from college. Will need to follow-up with patient tomorrow regarding this and awaiting other referrals for any other excepting facility as patient really does not want to return to the [facility]. 07/01/2024 Patient evaluated today resting in bed. Per nursing he was lethargic overnight but seems improved today. Patient is currently a bed at a subacute rehab [facility] and social work following. He remains on IV ceftazidime/avibactam. Chest x-ray today Reveals stable chest with left-sided pleural effusion. There is opacification of the right lung base and left lung base. Patient is on TPN. Patient is afebrile, heart rate 53, blood pressure 144/67, 100% on trach collar. 07/02/2024 Patient evaluated today in follow up. No acute complaints at this time. Still pending accepting rehab facility. Remains on the IV ceftazidime/avibactam. 07/03/2024 Patient evaluated today in follow up was downgraded to the general medical floor. Report the right ear pain and fullness is better. He continues on IV ceftazidime/Avibactam and IV vancomycin for the pseudomonas in the sputum. No accepting facility so far. He may need to remain hospitalized while he finishes course of antibiotics. He is tolerating the trach collar. 07/04. Patient seen and examined. Patient was a teamed this morning for decrease responsiveness, was found to be hypoxemic, was transferred back to ICU and was placed on ventilator. Patient is currently on breathing treatments. Hemoglobin this morning was 6.8, 1 unit of packed red blood cells ordered. Patient has been started on Levophed 07/05. Patient seen and examined. Patient is currently off sedation, opening eyes. Patient received 2 units of packed red blood cells in total since yesterday, hemoglobin improved to8.3, WBC 6.03, platelet count 229, sodium 137, potassium 3.8, BUN 18, creatinine 0.34, glucose 143, phosphorus 1.8. Critical care planning to trial CPAP 07/06/2024 Patient evaluated today in the intensive care unit. He is awake alert and responsive, he is able to answer simple questions. Under bronchoscopy on 07/04 with preliminary cultures showing pseudomonas aeruginosa; corynebacterium striatum group. Chest xray shows small bilateral pleural effusions. Remains on IV antibiotics. He is on the mechanical ventilator. Hemoglobin better today at 8.5. Sodium of 135, potassium 3.4. 07/07/2024 Patient remains in the intensive care unit. He is awake alert and responsive he is able to talk with a tracheostomy in place. His repeat cultures from the bronchoscopy are showing Pseudomonas aeruginosa and Corynebacterium stratum group. He continues on antibiotics in the form of IV ADK as as well as IV vancomycin. Patient remains off pressor support at this time. ID is following closely. Chest x-ray today reveals a bilateral trace pleural effusion. Patient underwent flexible bronchoscopy today and there was no evidence of mucous plugging or thick secretions. 10 cc of respiratory secretions were suctioned out. Patient had no evidence of tracheal stenosis during the procedure. Has been difficult to wean from the vent. 07/08/2024 Patient is evaluated today in follow up in the intensive care unit. His chest xray today reveals mild pulmonary vascular congestion. He remains on the ventilator currently with FiO2 and the most recent bronchoscopy cultures are showing preliminary pseudomonas aeruginosa. He continues on IV avycaz/ IV vancomycin. Ileostomy change was performed today with son at the bedside. Labs today reveal white blood cell count 5.74, hgb 9.1, sodium 135, potassium 4.3, BUN 13, creatinine 0.29, magnesium 1.9. 07/09/2024 Patient is eval today in follow-up tensive care unit. He remains on a mechanical ventilator with plans for a trach collar trial today. Patient overall feels better and is slightly clinically improved. His repeat sputum culture revealed Pseudomonas aeruginosa. The corynebacterium striatum group is not evident. Chest CT reveals basilar infiltrates and small effusions consistent with pneumonia. Mild splenomegaly. there is moderate elevation of the right hemidiaphragm. He is on day 6 out of 10 of the IV AV cast. His white blood cell count today is 5.21 hemoglobin 10.0, sodium of 135 BUN of 14 creatinine 0.36. Patient's mother was at the bedside and all questions were answered. 07/10/2024 Patient is seen in follow-up currently sitting up in bed eating with mother at the bedside feeding. Patient continues on trach collar 08/12 and reports to feeling well. Patient continues on IV antibiotics as sputum cultures continue to reveal Pseudomonas with pulmonary following as well. Social work/case management following looking into possible ECF as patient has no remaining days left at LTAC. Labs are stable at this time and will follow-up on repeat labs. Replace electrolytes per protocol and being monitored closely as patient remains on TPN. 07/11. Patient seen and examined. Currently on oxygen via trach mask. Continues to be on TPN and Lovenox. Currently on antibiotics Avycaz, vancomycin,. Patient also getting IV Lasix 20 mg Q12 REVIEW OF SYSTEMS: Cardio vascular: denied any chest pain, palpitations Gastrointestinal: denied any nausea, vomiting, diarrhea Pulmonary: Denied any shortness of breath cough PHYSICAL EXAMINATION: GENERAL: The patient is alert HEENT: Pupils are round and equally reacting to light. Trach collar seen CARDIOVASCULAR: S1 and S2 present. No murmurs, rubs, or gallops. PULMONARY: Diminished breath sounds at the bases, no wheezing or crackles. ABDOMEN: Soft, nontender, nondistended, normoactive bowel sounds. Ostomy seen MUSCULOSKELETAL: No joint swelling or deformity. EXTREMITIES: No cyanosis, clubbing, or pedal edema. NEUROLOGICAL: Gross neurological examination did not reveal any focal deficits. SKIN: No rashes. Assessment and plan Bilateral gram-negative pneumonia possibility of aspiration - Acute respiratory failure requiring mechanical ventilation ,bronchoscopy 06/22/2024 with cultures positive for Pseudomonas aeruginosa and corynebacterium striatum. Repeat bronchoscopy with BAL 07/04/2024 and 07/07/2024 - Crohn's disease with ileostomy in the past patient is presently on TPN - Right sided otitis media - Tracheobronchomalacia - CVA TIA - History of DVT Monitor vital signs Monitor CBC Monitor CMP Continue telemetry monitoring Continue oxygen supplementation via trach bronchoscopy 06/22/2024 with cultures positive for Pseudomonas aeruginosa and corynebacterium striatum. Repeat bronchoscopy with BAL 07/04/2024 and 07/07/24 Continue Lovenox Continue on Avycaz and vancomycin Remains on TPN and lipids Continue DuoNeb inhalations Pulmonology following ID following Labs and medication were reviewed.. Continue same treatment. Continue with symptomatic treatment. Resume home medication. Monitor labs and vitals. DVT and GI prophylaxis. Further recommendations as per clinical course of the patient Dictation was produced using [employer] dictation software. please excuse any grammatical, word or spelling errors. Objective - Vital Signs Vital signs: Vital Signs Temp 98.6 F 07/11/24 04:00 Pulse 84 07/11/24 06:10 Resp 18 07/11/24 06:00 BP 127/55 07/10/24 10:00 Pulse Ox 98 07/11/24 06:00 FiO2 28 07/11/24 05:03 Intake & Output 07/10/24 07/10/24 07/11/24 06:59 18:59 06:59 Intake Total 935 2025 1155 Output Total 2175 2845 1450 Balance -1240 -820 -295 Weight 95.5 kg 95.5 kg 92.7 kg Intake: IV 220 1160 220 0.9 Normal Saline @ KVO 220 260 220 Ceftazidime/Avibactam 2.5 200 gm In Sodium Chloride 0. 9% 100 ml @ 50 mls/hr IVPB Q8H ANNIE Rx#: [id number] Potassium Chloride 10 meq 200 In Water For Injection 1 100ml.bag @ 100 mls/hr IVPB Q1H ANNIE Rx#: [id number] Vancomycin 1,750 mg In 500 Sodium Chloride 0.9% 500 ml 500 ml @ 167 mls/hr IVPB Q16H ANNIE Rx#: [id number] TPN/PPN 715 865 935 Mvi, Adult No.4 with Vit 715 780 K 10 ml Trace (Conc-1Ml/ Dose) 1 ml Sodium Chloride 4Meq/ml Vial 48 meq Potassium Chloride 26 meq Calcium Gluconate 1 gm Magnesium Sulfate gm 1 gm Sodium Phosphate 27 mmol In Amino Acids 5 %/ Dextrose 20 % 1,000 ml @ 65 mls/hr IV .BY DURATION [facility] Rx#:[id number] Mvi, Adult No.4 with Vit 85 935 K 10 ml Trace (Conc-1Ml/ Dose) 1 ml Sodium Chloride 4Meq/ml Vial 60 meq Potassium Chloride 30 meq Calcium Gluconate 1 gm Magnesium Sulfate gm 1 .25 gm Sodium Phosphate 27 mmol In Amino Acids 5 %/Dextrose 20 % 1,000 ml @ 85 mls/hr IV .BY DURATION [facility] Rx#: [id number] Output: Urine 1175 1795 1450 Stool 1000 1050 Other: Voiding Method Indwelling Catheter Indwelling Catheter Indwelling Catheter ABP, PAP, CO, CI - Last Documented Arterial Blood Pressure 143/61 - Labs CBC & Chem 7: 07/10/24 03:54 07/11/24 05:40 Labs: Abnormal Lab Results - Last 24 Hours (Table) 07/10/24 07/10/24 07/11/24 Range/Units 11:41 16:48 00:00 ABG pCO2 (35-45) mmHg ABG HCO3 (21-25) mmol/L ABG Total CO2 (19-24) mmol/L ABG O2 Saturation (94-97) % Hemoglobin (13.0-17.5) gm/dL POC Glucose (mg/dL) 133 H 117 H 138 H (70-110) mg/dL 07/11/24 Range/Units 04:58 ABG pCO2 58 H (35-45) mmHg ABG HCO3 32 H (21-25) mmol/L ABG Total CO2 34 H (19-24) mmol/L ABG O2 Saturation 97.7 H (94-97) % Hemoglobin 10.7 L (13.0-17.5) gm/dL POC Glucose (mg/dL) (70-110) mg/dL Microbiology - Last 24 Hours (Table) 07/05/24 05:43 Blood Culture - Final Blood
[2024-07-11 16:19] LABS: Glucose,Whole Blood 125 mg/dL (70-110)
[2024-07-12 03:59] LABS: African American GFR (CKD) >90 (>60 ml/min/1.73 sqM); Anion Gap 9 mmol/L; Blood Urea Nitrogen 19 mg/dL (9-20); Calcium 8.4 mg/dL (8.4-10.2); Carbon Dioxide 27 mmol/L (22-30); Chloride 101 mmol/L (98-107); Glucose 137 mg/dL (74-99); Magnesium 1.8 mg/dL (1.6-2.3); Non-African American GFR(CKD) >90 (>60 ml/min/1.73 sqM); Phosphorus 3.2 mg/dL (2.5-4.5); Potassium 3.3 mmol/L (3.5-5.1); Sodium 137 mmol/L (137-145)
[2024-07-12] MEDS: MAGNESIUM SULFATE-D5W PMX 1 GM in DEXTROSE/WATER 1 100ML.BAG IVPB ONE (05:03)
[2024-07-12] MEDS: POTASSIUM CHLORIDE ER 20 MEQ TAB.ER PO SCH (05:03)
[2024-07-12 06:09] LABS: Glucose,Whole Blood 126 mg/dL (70-110)
[2024-07-12 11:56] LABS: Glucose,Whole Blood 129 mg/dL (70-110)
[2024-07-12 13:15] LABS: African American GFR (CKD) >90 (>60 ml/min/1.73 sqM); Non-African American GFR(CKD) >90 (>60 ml/min/1.73 sqM)
--- NOTE | 2024-07-12 13:55 | P.PN ---
Subjective Progress Note Date: 07/12/24 Patient admitted for bilateral cramping due to pneumonia gram-negative organism is not identified yet patient had Pseudomonas in the past patient underwent bronchoscopy patient remains on mechanical ventilation broad-spectrum antibiotics patient has a tracheostomy in place. Patient underwent bronchoalveolar lavage. 06/26/2024 Patient is evaluated in the ICU. Remains on the mechanical ventilator with FiO2 of 40%. Sputum culture reveals pseudomonas aeruginosa, corynebacterium striatum group. He remains on antibiotics with IV ceftazidime/Avibactam. TPN infusing. Labs today reveal white blood cell count 4.72, hgb 7.6, sodium 135, potassium 4.0, BUN 13, creatinine 0.39. Magnesium 1.9. Triglycerides of 183.00. 06/27/2024 Patient is evaluated in the intensive care unit. He is currently on the trach collar. Awake alert and oriented. Chest xray today shows left lower lobe atelectasis or pneumonia. Per mother at the bedside he was only home [facility] day prior to returning to the hospital. He will likely need to return to [facility] on [place]. Remains on TPN. White blood cell count 5.07, hgb 7.3, sodium 134, BUN 11, creatinine 0.34. 06/28/2024 Patient is eval today in intensive care unit. He is complaining of pain in the right ear manual examination does reveal some erythema of the canal and eardrum. We will add eardrops and monitor for improvement in symptoms. Patient is awake alert oriented he has tolerated trach collar. Chest x-ray today reveals a developing left lower lobe infiltrate with a small effusion which may be present. He continues on IV meropenem for positive sputum and bronchial washings of Pseudomonas aeruginosa and corynebacterium striatum group. Labs today reveal a white blood cell count of 5.55, hemoglobin 7.4, sodium 135, BUN of 11 creatinine 0.40. 06/29/2024 Patient is evaluated in the intensive care unit he is currently downgraded and pending a bed on the medical floor. Patient is ready for discharge and did discuss with the patient that he needs to follow-up with his family and I will also talk with his family regarding discharge planning if he is able to discharge home versus subacute rehab versus LTAC. Patient is adamant that that [facility] will not [facility]. Due to his complex medical needs including PEG tube, TPN, his tracheostomy, ileostomy, and IV antibiotics he may not be a candidate for subacute rehabilitation but referrals were placed by social work. He does state that his right ear feels better after being initiated on antibiotic eardrops and they will be continued at this time. His labs today reveal a white blood cell count of 5.50, hemoglobin 7.6, sodium level of 135, BUN of 9 creatinine 0.37 and magnesium level of 1.8. 06/30/2024 Patient is evaluated in follow-up in the medical floor. He has no acute complaints at this time. He does report again mild improvement in his right ear pain and he continues with the eardrops. Had a long discussion with patient's son over and over the phone regarding discharge planning. Alan is apprehensive about allowing child to return home due to his complex medical needs and somebody having to stay up with him overnight for suctioning and trach care. Open would like him to return [facility] for at least another month or so until his other brother comes home from college. Will need to follow-up with patient tomorrow regarding this and awaiting other referrals for any other excepting facility as patient really does not want to return to the [facility]. 07/01/2024 Patient evaluated today resting in bed. Per nursing he was lethargic overnight but seems improved today. Patient is currently a bed at a subacute rehab [facility] and social work following. He remains on IV ceftazidime/avibactam. Chest x-ray today Reveals stable chest with left-sided pleural effusion. There is opacification of the right lung base and left lung base. Patient is on TPN. Patient is afebrile, heart rate 53, blood pressure 144/67, 100% on trach collar. 07/02/2024 Patient evaluated today in follow up. No acute complaints at this time. Still pending accepting rehab facility. Remains on the IV ceftazidime/avibactam. 07/03/2024 Patient evaluated today in follow up was downgraded to the general medical floor. Report the right ear pain and fullness is better. He continues on IV ceftazidime/Avibactam and IV vancomycin for the pseudomonas in the sputum. No accepting facility so far. He may need to remain hospitalized while he finishes course of antibiotics. He is tolerating the trach collar. 07/04. Patient seen and examined. Patient was a teamed this morning for decrease responsiveness, was found to be hypoxemic, was transferred back to ICU and was placed on ventilator. Patient is currently on breathing treatments. Hemoglobin this morning was 6.8, 1 unit of packed red blood cells ordered. Patient has been started on Levophed 07/05. Patient seen and examined. Patient is currently off sedation, opening eyes. Patient received 2 units of packed red blood cells in total since yesterday, hemoglobin improved to8.3, WBC 6.03, platelet count 229, sodium 137, potassium 3.8, BUN 18, creatinine 0.34, glucose 143, phosphorus 1.8. Critical care planning to trial CPAP 07/06/2024 Patient evaluated today in the intensive care unit. He is awake alert and responsive, he is able to answer simple questions. Under bronchoscopy on 07/04 with preliminary cultures showing pseudomonas aeruginosa; corynebacterium striatum group. Chest xray shows small bilateral pleural effusions. Remains on IV antibiotics. He is on the mechanical ventilator. Hemoglobin better today at 8.5. Sodium of 135, potassium 3.4. 07/07/2024 Patient remains in the intensive care unit. He is awake alert and responsive he is able to talk with a tracheostomy in place. His repeat cultures from the bronchoscopy are showing Pseudomonas aeruginosa and Corynebacterium stratum group. He continues on antibiotics in the form of IV ADK as as well as IV vancomycin. Patient remains off pressor support at this time. ID is following closely. Chest x-ray today reveals a bilateral trace pleural effusion. Patient underwent flexible bronchoscopy today and there was no evidence of mucous plugging or thick secretions. 10 cc of respiratory secretions were suctioned out. Patient had no evidence of tracheal stenosis during the procedure. Has been difficult to wean from the vent. 07/08/2024 Patient is evaluated today in follow up in the intensive care unit. His chest xray today reveals mild pulmonary vascular congestion. He remains on the ventilator currently with FiO2 and the most recent bronchoscopy cultures are showing preliminary pseudomonas aeruginosa. He continues on IV avycaz/ IV vancomycin. Ileostomy change was performed today with son at the bedside. Labs today reveal white blood cell count 5.74, hgb 9.1, sodium 135, potassium 4.3, BUN 13, creatinine 0.29, magnesium 1.9. 07/09/2024 Patient is eval today in follow-up tensive care unit. He remains on a mechanical ventilator with plans for a trach collar trial today. Patient overall feels better and is slightly clinically improved. His repeat sputum culture revealed Pseudomonas aeruginosa. The corynebacterium striatum group is not evident. Chest CT reveals basilar infiltrates and small effusions consistent with pneumonia. Mild splenomegaly. there is moderate elevation of the right hemidiaphragm. He is on day 6 out of 10 of the IV AV cast. His white blood cell count today is 5.21 hemoglobin 10.0, sodium of 135 BUN of 14 creatinine 0.36. Patient's mother was at the bedside and all questions were answered. 07/10/2024 Patient is seen in follow-up currently sitting up in bed eating with mother at the bedside feeding. Patient continues on trach collar 08/12 and reports to feeling well. Patient continues on IV antibiotics as sputum cultures continue to reveal Pseudomonas with pulmonary following as well. Social work/case management following looking into possible ECF as patient has no remaining days left at LTAC. Labs are stable at this time and will follow-up on repeat labs. Replace electrolytes per protocol and being monitored closely as patient remains on TPN. 07/11. Patient seen and examined. Currently on oxygen via trach mask. Continues to be on TPN and Lovenox. Currently on antibiotics Avycaz, vancomycin,. Patient also getting IV Lasix 20 mg Q12 07/12. Patient seen and examined. Continues to be on oxygen via trach mask. Patient is alert, follows commands, answers questions.Labs done this morning showed sodium 137, potassium 3.3, BUN 19, creatinine 0.35 REVIEW OF SYSTEMS: Cardio vascular: denied any chest pain, palpitations Gastrointestinal: denied any nausea, vomiting, diarrhea Pulmonary: Denied any shortness of breath cough PHYSICAL EXAMINATION: GENERAL: The patient is alert HEENT: Pupils are round and equally reacting to light. Trach collar seen CARDIOVASCULAR: S1 and S2 present. No murmurs, rubs, or gallops. PULMONARY: Diminished breath sounds at the bases, no wheezing or crackles. ABDOMEN: Soft, nontender, nondistended, normoactive bowel sounds. Ostomy seen MUSCULOSKELETAL: No joint swelling or deformity. EXTREMITIES: No cyanosis, atrophy of lower extremities seen NEUROLOGICAL: Gross neurological examination did not reveal any focal deficits. SKIN: No rashes. Assessment and plan Bilateral gram-negative pneumonia possibility of aspiration - Acute respiratory failure requiring mechanical ventilation ,bronchoscopy 06/22/2024 with cultures positive for Pseudomonas aeruginosa and corynebacterium striatum. Repeat bronchoscopy with BAL 07/04/2024 and 07/07/2024 - Crohn's disease with ileostomy in the past patient is presently on TPN - Right sided otitis media - Tracheobronchomalacia - CVA TIA - History of DVT Monitor vital signs Monitor CBC Monitor CMP Continue telemetry monitoring Continue oxygen supplementation via trach bronchoscopy 06/22/2024 with cultures positive for Pseudomonas aeruginosa and corynebacterium striatum. Repeat bronchoscopy with BAL 07/04/2024 and 07/07/24 Continue Lovenox Continue on Avycaz and vancomycin Continue TPN and lipids Continue DuoNeb inhalations Pulmonology following ID following Labs and medication were reviewed.. Continue same treatment. Continue with symptomatic treatment. Resume home medication. Monitor labs and vitals. DVT and GI prophylaxis. Further recommendations as per clinical course of the pa sudhakar Dictation was produced using [employer] dictation software. please excuse any grammatical, word or spelling errors. Objective - Vital Signs Vital signs: Vital Signs Temp 97.4 F L 07/12/24 08:00 Pulse 88 07/12/24 12:05 Resp 22 07/12/24 12:05 BP 127/55 07/10/24 10:00 Pulse Ox 96 07/12/24 10:00 FiO2 28 07/12/24 08:31 Intake & Output 07/11/24 07/12/24 07/12/24 18:59 06:59 18:59 Intake Total 1520.2 3058.5 Output Total 3325 2050 Balance -1804.8 1008.5 Weight 93.7 kg Intake: IV 1437 1896 0.9 Normal Saline @ KVO 227 276 Ceftazidime/Avibactam 2.5 200 100 gm In Sodium Chloride 0. 9% 100 ml @ 50 mls/hr IVPB Q8H [facility] Rx#: [id number] Mvi, Adult No.4 with Vit 510 1020 K 10 ml Trace (Conc-1Ml/ Dose) 1 ml Sodium Chloride 4Meq/ml Vial 60 meq Potassium Chloride 30 meq Calcium Gluconate 1 gm Magnesium Sulfate gm 1 .25 gm Sodium Phosphate 27 mmol In Amino Acids 5 %/Dextrose 20 % 1,000 ml @ 85 mls/hr IV .BY DURATION [facility] Rx#: [id number] Vancomycin 1,750 mg In 500 500 Sodium Chloride 0.9% 500 ml 500 ml @ 167 mls/hr IVPB Q16H [facility] Rx#: [id number] Intake, IV Titration 83.2 1162.5 Amount Fat Emulsion 20% 250 ml @ 83.2 20.833 mls/hr IV Q72H [facility] Rx#:[id number] Magnesium Sulfate-D5w Pmx 100 1 gm In Dextrose/Water 1 100ml.bag @ 100 mls/hr IVPB ONCE ONE Rx#: [id number] Mvi, Adult No.4 with Vit 1062.5 K 10 ml Trace (Conc-1Ml/ Dose) 1 ml Sodium Chloride 4Meq/ml Vial 60 meq Potassium Chloride 30 meq Calcium Gluconate 1 gm Magnesium Sulfate gm 1 .25 gm Sodium Phosphate 27 mmol In Amino Acids 5 %/Dextrose 20 % 1,000 ml @ 85 mls/hr IV .BY DURATION [facility] Rx#: [id number] Output: Gastric Drainage 400 Urine 1725 1250 Stool 1200 800 Other: Voiding Method Indwelling Catheter Indwelling Catheter Indwelling Catheter ABP, PAP, CO, CI - Last Documented Arterial Blood Pressure 134/50 - Labs CBC & Chem 7: 07/10/24 03:54 07/12/24 12:42 Labs: Abnormal Lab Results - Last 24 Hours (Table) 07/11/24 07/12/24 07/12/24 Range/Units 16:17 03:15 06:07 Potassium 3.3 L (3.5-5.1) mmol/L Creatinine 0.35 L (0.66-1.25) mg/dL Glucose 137 H (74-99) mg/dL POC Glucose (mg/dL) 125 H 126 H (70-110) mg/dL 07/12/24 07/12/24 Range/Units 11:55 12:42 Potassium (3.5-5.1) mmol/L Creatinine 0.29 L (0.66-1.25) mg/dL Glucose (74-99) mg/dL POC Glucose (mg/dL) 129 H (70-110) mg/dL
[2024-07-12] MEDS: VANCOMYCIN TROUGH DUE 1 EACH MISC MISCELLANE ONE (14:21)
--- NOTE | 2024-07-12 18:24 | P.PN ---
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 Patient is obese and he has developed chronic generalized weakness, respiratory insufficiency with recurrent pneumonias requiring previous intubation and mechanical ventilation. The patient has also been treated for episodes of pneumonias in the past including pseudomonal pneumonia earlier this year. He does have also an area of tracheal stenosis related to previous tracheal manipulation and tracheostomy tube insertion. Currently he has a permanent tracheostomy tube in place to secure his airways. 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 Following his most recent hospitalization in March 2024, the patient was discharged to [facility] and following that he was discharged home where he has been taking care of by family members. Since then, the patient has done well. The patient came into the emergency department as he has stated that he has been feeling more short of breath and his dyspnea is occurring in episodes. Nevertheless, he has remained hemodynamically stable. He remains on 35 to 40% trach collar without development of any significant respiratory secretions. Blo od work has been essentially stable. The white cell count at time of admission was at 5.4 with a hemoglobin of 8.3 and a platelet count of 181. Sodium levels at 139, bicarb is at 33, BUN 23 with a creatinine of 0.35. Troponins were negative. LFTs are essentially within normal limits. Total protein was at 7.4 with an albumin of 3.5. The viral screen was negative in the emergency department. Also, the patient was given a chest x-ray that showed smaller lung volumes and poor respiratory effort. There is some cardiomegaly. No acute airspace disease or consolidation. His EKG showed a normal sinus mechanism. Based on that, the patient was hospitalized in the pulmonary consultation was r equested. He was started on empiric antibiotic coverage with IV Rocephin. Noted the patient is bedridden. He has chronic muscle atrophy and contractures in his lower extremities. He remains on therapeutic dose of Lovenox 90 mg subcu every 12 hours. On 06/21/2024, the patient feels that something is obstructing his airways. At times he is feeling short of breath. No clear explanation. There may be some anatomic problems and obstruction in his trachea as during my early bronchoscopies, I noted that the patient has an area of tracheal stenosis at the site of previous tracheostomy tube insertion. I think it would be douglas to reevaluate this patient's airway right bronchoscopy and document patency of the airway. No significant respiratory secretions for now. No fever. No chills. Blood cultures are still negative. White cell count is 6.7, hemoglobin is 8.5, BUN is 12 with a creatinine of 0.36. He remains on a 40% trach collar. Remains on TPN for nutritional support. On 07/06/2024, the patient is being seen for a follow-up. This morning, the patient is awake and alert on propofol at 50 mcg/kg/min. He remains on a mechanical ventilator on assist-control mode rate of 20, tidal volume of 450, FiO2 40% with a PEEP of 5. Blood gas showed a pH of 7.44 with a RNM147 and PO2 of 94. Chest x-ray shows small bilateral pleural effusions. The patient had normal citrate of 10 cc an hour. The patient on TPN at rate of 85 cc an hour. Output from the ileostomy bag is in the order of 400 cc over the past 24 hours. He has a triple-lumen catheter in his left femoral in addition to an arterial cath in his left femoral and a PICC line in his left subclavian. Fluid balance is +1.9 L over the past 24 hours. Respiratory status is stable. No significant fluid secretions. The patient has #6 Shiley XLT tracheostomy tube. Previous cultures were positive for Pseudomonas aeruginosa and corynebacterium and the patient is currently on ceftazidime/avibactam. The patient is also on vancomycin. Afebrile. No pressors for now. The white cell count is at 6.3 with a hemoglobin 8.5 and a platelet count of 252. Sodium is at 135, potassium is at 3.4, BUN 16 with a creatinine of 0.3. On 07/07/2024, the patient is being seen for a follow-up. The patient is awake and alert and this morning the patient is on no sedation. He did go on a PSV trial yesterday with a PSV of 5 and a PEEP of 5 and the patient lasted for a total of 1 hour. Following that, he felt short of breath. There was no significant change in his tidal volumes or tachypnea, however the patient stated that he was unable to breathe and he preferred to go back on assist-control mode. Since then, the patient has been maintained on assist-control rate of 20, tidal volume of 450, FiO2 40% with a PEEP of 5. Blood gases from today showed a pH of 7.42 with a XBE238 and pO2 of 102. Chest x-ray remains essentially unchanged. There are some atelectatic changes in the lung bases bilaterally along with some trace pleural effusions. Tracheostomy is in a good location. Based on this ongoing failure, mucous plugging was suspected. I performed a bronchoscopy in the ICU today and the respiratory secretions were essentially scant. There was some looseness with secretions retained in the lower lobes bilaterally this was suctioned out. Nevertheless, there was no thick or purulent secretions. There was no mucous plugs. Tracheostomy tube was in a good location in the mid trachea. The patient is hemodynamically stable. The white cell count of 5.5 with a hemoglobin 8.9 and platelet count of 253. Sodium is at 136, BUN is 13 with a creatinine of 0.31. Remains on ceftazidime IV Bactrim and vancomycin combination. Remains on TPN at a rate of 85 cc an hour. Urine output is adequate. No other active issues for now. He is awake and alert. On 07/08/2024, the patient is awake and alert. Bronchoscopy was done and the respiratory secretions were scant. Another set of cultures were obtained from t he respiratory secretions and the primary culture still showing Pseudomonas aeruginosa. The patient remains on ceftazidime IV Bactrim and vancomycin per IDs recommendations. Chest x-ray findings are essentially unchanged. The patient is given daily trials of PSV. However, within a few hours of being on a PSV of 5 and a PEEP of 5, the patient gets short of breath and anxious. I was told that there is no significant tachypnea or drop in the patient's tidal volumes. Repeat chest x-ray from today shows low lung volumes with cardiomegaly and mild pulm vessel congestion. The patient hemodynamically stable on no pressors. He is afebrile. White count of 5.7 with a hemoglobin 9.1 and a plate let count of 253. Sodium is at 135, BUN 13 with a creatinine of 0.29. Potassium level is at 4.3. Fluid balance over the past 24 hours is +1.6 L. The patient remains on bronchodilators. The patient remains on TPN which is running at rate of 82 cc an hour. No other significant events overnight. He is on no sedation the patient is able to communicate On 07/09/2024, the patient is awake and alert and communicating. He was able to tolerate PSV mode of mechanical ventilation. Initially the PSV of 14 and a PEEP of 5 and ultimately this was weaned down to a PSV of 9 throughout the day. Overnight, the patient was placed on assist-control mode of mechanical ventilation. This morning, the patient is on a PSV of 9 and a PEEP of 5 and the blood gases showed a pH of 7.44 with a BPN725 and PO217. Chest x-ray findings are essentially unchanged. Doing well. No significant respiratory secretions. Most recent bronchial cultures are still showing Pseudomonas aeruginosa and the patient remains on a combination of ceftazidime IV Bactrim and vancomycin. The patient remains hemodynamically stable. The patient has no specific complaints. The patient has increased anxiety and the patient is currently on Ativan 1 mg every 8 hours IV. Respiratory medications remain unchanged. Remains on Lovenox therapeutic dose 90 mg subcu every 12 hours. Remains on TPN for nutritional support which is running at a rate of 65 cc an hour. Fluid balance is -600 cc over the past 24 hours and the patient is currently on Lasix 20 mg IV every 12 hours. Blood work from today shows a white cell count of 5.2 with a hemoglobin 10 and platelet count of 265. Sodium level is 135, BUN is 14 with a creatinine of 0.3. Glucose is 115. On 07/10/2024, the patient is awake and alert and communicating. He was able to trach collor 28% FIO2 over the past 24 hours. Started on feeding. Chest x-ray findings are essentially unchanged. Doing well. No significant respiratory secretions. Most recent bronchial cultures are still showing Pseudomonas aeruginosa and the patient remains on a combination of ceftazidime IV Bactrim and vancomycin. The patient remains hemodynamically stable. The patient has no specific complaints. The patient has increased anxiety and the patient is currently on Ativan 1 mg every 6 hours IV. Respiratory medications remain unchanged. Remains on Lovenox therapeutic dose 90 mg subcu every 12 hours. Remains on TPN for nutritional support which is running at a rate of 65 cc an hour. Fluid balance is - 1.8 L over the past 24 hours and the patient is currently on Lasix 20 mg IV every 12 hours. Blood work from today noted 07/11/2024, the patient remains on a trach collar and the patient on 28% trach collar for the past 48 hours. Denies any difficulties. Awake and alert and communicating. Continues to be on TPN rate of 22 cc an hour. Continues to be in place 20 mg and 5012 hours. Fluid balance is negative in the order of 1.1 L over the past 24 hours. Calm and comfortable. Anxiety is well treated and the patient is currently on buspirone and Ativan. BUN 17 with a creatinine of 0.4. Sodium levels at 138 and potassium level is at 3.9. Bronchodilators are still being administered. No significant respiratory secretions. Patient looks to be quite comfortable. Remains on ceftazidime avibactam regarding ongoing pseudomonal pneumonia/infection. Remains on vancomycin. ID is on the case. Remains on Lovenox 90 mg SQ every 12 hours. On 07/12/2024, the patient remains on a 28% trach collar and the patient has been on a trach collar for the past 72 hours without any major difficulties. No significant tracheal secretion. The patient is able to utilize his speaking valve. Remains on TPN at rate of 82 cc an hour. Output from the gastrointestinal fistula is in order of 600 cc over 8 hours. The patient is in a negative fluid balance of 796 cc over the past 24 hours and the patient continues to receive Lasix 20 mg IV every 12 hours. Sodium levels at 137, potassium is at 3.3, chlorides 101 with a bicarb of 27, BUN is 19 with a creatinine of 0.35. No CBCs available from today. Remains on the same antibiotic coverage including combination of ceftazidime avibactam and vancomycin. The patient has a triple-lumen catheter in his left subclavian that can be essentially removed. He also has a double-lumen PICC. Awake and alert and communicating. Denies having any major respiratory distress. Chronically debilitated. Anxiety levels are adequate. Objective - Vital Signs Vital signs: Vital Signs Temp 98.3 F 04/27/25 04:00 Pulse 88 07/12/24 08:40 Resp 22 07/12/24 08:40 BP 127/55 07/10/24 10:00 Pulse Ox 94 L 07/12/24 08:31 FiO2 28 07/12/24 08:31 Intake & Output 07/11/24 07/12/24 07/12/24 18:59 06:59 18:59 Intake Total 1520.2 3058.5 Output Total 3325 2050 Balance -1804.8 1008.5 Weight 93.7 kg Intake: IV 1437 1896 0.9 Normal Saline @ KVO 227 276 Ceftazidime/Avibactam 2.5 200 100 gm In Sodium Chloride 0. 9% 100 ml @ 50 mls/hr IVPB Q8H [facility] Rx#: [id number] Mvi, Adult No.4 with Vit 510 1020 K 10 ml Trace (Conc-1Ml/ Dose) 1 ml Sodium Chloride 4Meq/ml Vial 60 meq Potassium Chloride 30 meq Calcium Gluconate 1 gm Magnesium Sulfate gm 1 .25 gm Sodium Phosphate 27 mmol In Amino Acids 5 %/Dextrose 20 % 1,000 ml @ 85 mls/hr IV .BY DURATION [facility] Rx#: [id number] Vancomycin 1,750 mg In 500 500 Sodium Chloride 0.9% 500 ml 500 ml @ 167 mls/hr IVPB Q16H [facility] Rx#: [id number] Intake, IV Titration 83.2 1162.5 Amount Fat Emulsion 20% 250 ml @ 83.2 20.833 mls/hr IV Q72H [facility] Rx#:[id number] Magnesium Sulfate-D5w Pmx 100 1 gm In Dextrose/Water 1 100ml.bag @ 100 mls/hr IVPB ONCE ONE Rx#: [id number] Mvi, Adult No.4 with Vit 1062.5 K 10 ml Trace (Conc-1Ml/ Dose) 1 ml Sodium Chloride 4Meq/ml Vial 60 meq Potassium Chloride 30 meq Calcium Gluconate 1 gm Magnesium Sulfate gm 1 .25 gm Sodium Phosphate 27 mmol In Amino Acids 5 %/Dextrose 20 % 1,000 ml @ 85 mls/hr IV .BY DURATION [facility] Rx#: [id number] Output: Gastric Drainage 400 Urine 1725 1250 Stool 1200 800 Other: Voiding Method Indwelling Catheter Indwelling Catheter ABP, PAP, CO, CI - Last Documented Arterial Blood Pressure 138/50 - Exam GENERAL EXAM: Awake, alert 49-year-old male patient, on 28 % trach collar HEAD: Normocephalic. EYES: Normal reaction of pupils, equal size. NOSE: Clear with pink turbinates. THROAT: Tracheostomy tube secured in place. No erythema or exudates. NECK: No masses, no JVD. CHEST: No chest wall deformity. LUNGS: Equal air entry with coarse rhonchi bilaterally. CVS: S1 and S2 normal with no audible murmur, regular rhythm. ABDOMEN: Enterocutaneous fistula over the abdominal wall. No hepatosplenomegaly, normal bowel sounds. SPINE: No scoliosis or deformity SKIN: No rashes CENTRAL NERVOUS SYSTEM: No focal deficits, tone is normal in all 4 extremities. EXTREMITIES: Extensive muscle atrophy. Contractures. There is no peripheral edema. No clubbing, no cyanosis. Peripheral pulses are intact. - Labs CBC & Chem 7: 07/10/24 03:54 07/12/24 12:42 Labs: Abnormal Lab Results - Last 24 Hours (Table) 07/11/24 07/11/24 07/12/24 Range/Units 11:45 16:17 03:15 Potassium 3.3 L (3.5-5.1) mmol/L Creatinine 0.35 L (0.66-1.25) mg/dL Glucose 137 H (74-99) mg/dL POC Glucose (mg/dL) 120 H 125 H (70-110) mg/dL 07/12/24 Range/Units 06:07 Potassium (3.5-5.1) mmol/L Creatinine (0.66-1.25) mg/dL Glucose (74-99) mg/dL POC Glucose (mg/dL) 126 H (70-110) mg/dL Assessment and Plan Plan: Acute on chronic hypoxemic and hypercapnic respiratory failure, multifactorial. Transferred back into the intensive care unit 07/04/2024 and placed back on the mechanical ventilator. Respiratory failure was essentially due to respiratory secretions. He has chronic respiratory insufficiency and neuromuscular weakness. The patient decompensated because of pseudomonal pneumonia and respiratory secretions. He is post bronchoscopy. The patient is currently on ceftazidime avibactam. He is also on vancomycin. No significant respiratory secretions and the patient is tolerating trach collar for the past 72 hours. No significant respiratory distress and the patient is able to utilize a speaking valve. The patient is able to swallow. Acute left lower lobe pneumonia. Reviewed bronchoscopy 06/22/2024 with cultures positive for Pseudomonas aeruginosa and corynebacterium striatum. Repeat bronchoscopy with BAL 07/04/2024. Cultures are still positive for the same microorganism and the patient remains on the same antibiotics which include a combination of ceftazidime IV Bactrim and vancomycin. Chest x-ray findings have been essentially stable. No evidence of any acute airspace disease or infiltrates. Atelectatic changes in lung bases. Hypotension, currently receiving fluid resuscitation, currently hemodynamically stable on no pressors Tracheal stenosis, the patient has a #6 Shiley XLT tracheostomy tube in place History of recurrent ventilator dependent respiratory failure, secondary to pneumonia and mucous plugging History of sepsis, secondary to pneumonia. Crohn's disease, with previous complication of bowel perforation s/p colectomy and diverting ileostomy. The patient also has had previous history of abdominal wall bleeding there is currently inactive and stable. The patient has a high output ileostomy Tracheobronchomalacia History of DVT History of CVA/TIA Right below the knee amputation History of asystole/cardiac arrest, 2021 Plan: Continue monitoring the resp status, the patient has been on trach collar for th e past 72 hours with 28% FiO2. Continue anxiolytics and the patient will be placed on Ativan 1 mg IV every 6 hours. continue BuSpar 15 mg p.o. twice a day Continue Lasix 20 mg IV every 12 hours. continue on Avycaz and vancomycin, the repeat cultures from the respiratory secretions post bronchoscopy revealed Pseudomonas aeruginosa. Remains on TPN and lipids Anticoagulated with Lovenox Continue DuoNeb inhalations Protonix for GI prophylaxis The patient can be transferred to a medical surgical floor with telemetry monitoring.
[2024-07-12] MEDS: ALTEPLASE 2 MG VIAL (CATHFLO) IV STA ×2 (21:12→21:13)
[2024-07-12] MEDS: CEFTAZIDIME/AVIBACTAM 2.5 GM in SODIUM CHLORIDE 0.9% 100 ML IVPB SCH (22:32)
[2024-07-13 04:49] LABS: HCT 36.2 % (39.6-50.0); HGB 10.2 g/dL (13.0-17.0); MCH 24.8 pg (27.0-32.0); MCHC 28.2 g/dL (32.0-37.0); MCV 87.9 fL (80.0-97.0); Mean Platelet Volume 11.4 fL (9.5-12.2); Platelet Count 210 10*3/uL (140-440); RBC 4.12 10*6/uL (4.40-5.60); RDW 16.1 % (11.5-14.5); WBC 6.31 10*3/uL (4.50-10.00)
[2024-07-13 05:30] LABS: African American GFR (CKD) >90 (>60 ml/min/1.73 sqM); Anion Gap 8 mmol/L; Blood Urea Nitrogen 18 mg/dL (9-20); Calcium 8.8 mg/dL (8.4-10.2); Carbon Dioxide 29 mmol/L (22-30); Chloride 101 mmol/L (98-107); Glucose 131 mg/dL (74-99); Magnesium 2.1 mg/dL (1.6-2.3); Non-African American GFR(CKD) >90 (>60 ml/min/1.73 sqM); Phosphorus 3.3 mg/dL (2.5-4.5); Potassium 3.8 mmol/L (3.5-5.1); Sodium 138 mmol/L (137-145)
[2024-07-13] MEDS: POTASSIUM CHLORIDE ER 20 MEQ TAB.ER PO SCH (06:21)
[2024-07-13] MEDS: VANCOMYCIN 1,500 MG in SODIUM CHLORIDE 0.9% 500 ML 500 ML IVPB SCH (06:22)
--- NOTE | 2024-07-13 13:03 | P.PN ---
Subjective Progress Note Date: 07/13/24 Patient admitted for bilateral cramping due to pneumonia gram-negative organism is not identified yet patient had Pseudomonas in the past patient underwent bronchoscopy patient remains on mechanical ventilation broad-spectrum antibiotics patient has a tracheostomy in place. Patient underwent bronchoalveolar lavage. 06/26/2024 Patient is evaluated in the ICU. Remains on the mechanical ventilator with FiO2 of 40%. Sputum culture reveals pseudomonas aeruginosa, corynebacterium striatum group. He remains on antibiotics with IV ceftazidime/Avibactam. TPN infusing. Labs today reveal white blood cell count 4.72, hgb 7.6, sodium 135, potassium 4.0, BUN 13, creatinine 0.39. Magnesium 1.9. Triglycerides of 183.00. 06/27/2024 Patient is evaluated in the intensive care unit. He is currently on the trach collar. Awake alert and oriented. Chest xray today shows left lower lobe atelectasis or pneumonia. Per mother at the bedside he was only home [facility] day prior to returning to the hospital. He will likely need to return to [facility] [address] on DC. Remains on TPN. White blood cell count 5.07, hgb 7.3, sodium 134, BUN 11, creatinine 0.34. 06/28/2024 Patient is eval today in intensive care unit. He is complaining of pain in the right ear manual examination does reveal some erythema of the canal and eardrum. We will add eardrops and monitor for improvement in symptoms. Patient is awake alert oriented he has tolerated trach collar. Chest x-ray today reveals a developing left lower lobe infiltrate with a small effusion which may be present. He continues on IV meropenem for positive sputum and bronchial washings of Pseudomonas aeruginosa and corynebacterium striatum group. Labs today reveal a white blood cell count of 5.55, hemoglobin 7.4, sodium 135, BUN of 11 creatinine 0.40. 06/29/2024 Patient is evaluated in the intensive care unit he is currently downgraded and pending a bed on the medical floor. Patient is ready for discharge and did discuss with the patient that he needs to follow-up with his family and I will also talk with his family regarding discharge planning if he is able to discharge home versus subacute rehab versus LTAC. Patient is adamant that that he will not [facility]. Due to his complex medical needs including PEG tube, TPN, his tracheostomy, ileostomy, and IV antibiotics he may not be a candidate for subacute rehabilitation but referrals were placed by social work. He does state that his right ear feels better after being initiated on antibiotic eardrops and they will be continued at this time. His labs today reveal a white blood cell count of 5.50, hemoglobin 7.6, sodium level of 135, BUN of 9 creatinine 0.37 and magnesium level of 1.8. 06/30/2024 Patient is evaluated in follow-up in the medical floor. He has no acute complaints at this time. He does report again mild improvement in his right ear pain and he continues with the eardrops. Had a long discussion with patient's son over and over the phone regarding discharge planning. Alan is apprehensive about allowing child to return home due to his complex medical needs and somebody having to stay up with him overnight for suctioning and trach care. Open would like him to return [facility] for at least another month or so until his other brother comes home from college. Will need to follow-up with patient tomorrow regarding this and awaiting other referrals for any other excepting facility as patient really does not want to return to the [facility]. 07/01/2024 Patient evaluated today resting in bed. Per nursing he was lethargic overnight but seems improved today. Patient is currently a bed at a subacute rehab [facility] and social work following. He remains on IV ceftazidime/avibactam. Chest x-ray today Reveals stable chest with left-sided pleural effusion. There is opacification of the right lung base and left lung base. Patient is on TPN. Patient is afebrile, heart rate 53, blood pressure 144/67, 100% on trach collar. 07/02/2024 Patient evaluated today in follow up. No acute complaints at this time. Still pending accepting rehab facility. Remains on the IV ceftazidime/avibactam. 07/03/2024 Patient evaluated today in follow up was downgraded to the general medical floor. Report the right ear pain and fullness is better. He continues on IV ceftazidime/Avibactam and IV vancomycin for the pseudomonas in the sputum. No accepting facility so far. He may need to remain hospitalized while he finishes course of antibiotics. He is tolerating the trach collar. 07/04. Patient seen and examined. Patient was a teamed this morning for decrease responsiveness, was found to be hypoxemic, was transferred back to ICU and was placed on ventilator. Patient is currently on breathing treatments. Hemoglobin this morning was 6.8, 1 unit of packed red blood cells ordered. Patient has been started on Levophed 07/05. Patient seen and examined. Patient is currently off sedation, opening eyes. Patient received 2 units of packed red blood cells in total since yesterday, hemoglobin improved to8.3, WBC 6.03, platelet count 229, sodium 137, potassium 3.8, BUN 18, creatinine 0.34, glucose 143, phosphorus 1.8. Critical care planning to trial CPAP 07/06/2024 Patient evaluated today in the intensive care unit. He is awake alert and responsive, he is able to answer simple questions. Under bronchoscopy on 07/04 with preliminary cultures showing pseudomonas aeruginosa; corynebacterium striatum group. Chest xray shows small bilateral pleural effusions. Remains on IV antibiotics. He is on the mechanical ventilator. Hemoglobin better today at 8.5. Sodium of 135, potassium 3.4. 07/07/2024 Patient remains in the intensive care unit. He is awake alert and responsive he is able to talk with a tracheostomy in place. His repeat cultures from the bronchoscopy are showing Pseudomonas aeruginosa and Corynebacterium stratum group. He continues on antibiotics in the form of IV ADK as as well as IV vancomycin. Patient remains off pressor support at this time. ID is following closely. Chest x-ray today reveals a bilateral trace pleural effusion. Patient underwent flexible bronchoscopy today and there was no evidence of mucous plugging or thick secretions. 10 cc of respiratory secretions were suctioned out. Patient had no evidence of tracheal stenosis during the procedure. Has been difficult to wean from the vent. 07/08/2024 Patient is evaluated today in follow up in the intensive care unit. His chest xray today reveals mild pulmonary vascular congestion. He remains on the ventilator currently with FiO2 and the most recent bronchoscopy cultures are showing preliminary pseudomonas aeruginosa. He continues on IV avycaz/ IV vancomycin. Ileostomy change was performed today with son at the bedside. Labs today reveal white blood cell count 5.74, hgb 9.1, sodium 135, potassium 4.3, BUN 13, creatinine 0.29, magnesium 1.9. 07/09/2024 Patient is eval today in follow-up tensive care unit. He remains on a mechanical ventilator with plans for a trach collar trial today. Patient overall feels better and is slightly clinically improved. His repeat sputum culture revealed Pseudomonas aeruginosa. The corynebacterium striatum group is not evident. Chest CT reveals basilar infiltrates and small effusions consistent with pneumonia. Mild splenomegaly. there is moderate elevation of the right hemidiaphragm. He is on day 6 out of 10 of the IV AV cast. His white blood cell count today is 5.21 hemoglobin 10.0, sodium of 135 BUN of 14 creatinine 0.36. Patient's mother was at the bedside and all questions were answered. 07/10/2024 Patient is seen in follow-up currently sitting up in bed eating with mother at the bedside feeding. Patient continues on trach collar 08/12 and reports to feeling well. Patient continues on IV antibiotics as sputum cultures continue to reveal Pseudomonas with pulmonary following as well. Social work/case management following looking into possible ECF as patient has no remaining days left at LTAC. Labs are stable at this time and will follow-up on repeat labs. Replace electrolytes per protocol and being monitored closely as patient remains on TPN. 07/11. Patient seen and examined. Currently on oxygen via trach mask. Continues to be on TPN and Lovenox. Currently on antibiotics Avycaz, vancomycin,. Patient also getting IV Lasix 20 mg Q12 07/12. Patient seen and examined. Continues to be on oxygen via trach mask. Patient is alert, follows commands, answers questions.Labs done this morning showed sodium 137, potassium 3.3, BUN 19, creatinine 0.35 07/13. Patient seen and examined. Labs reviewed showing WBCs 0.31, hemoglobin 10.2, platelet count 210, sodium 138, potassium 3.8, BUN 18, creatinine 0.34.Continue IV antibiotics. Currently on anticoagulation with Lovenox. Continues to be on TPN. REVIEW OF SYSTEMS: Cardio vascular: denied any chest pain, palpitations Gastrointestinal: denied any nausea, vomiting, diarrhea Pulmonary: Denied any shortness of breath cough PHYSICAL EXAMINATION: GENERAL: The patient is alert HEENT: Pupils are round and equally reacting to light. Trach collar seen CARDIOVASCULAR: S1 and S2 present. No murmurs, rubs, or gallops. PULMONARY: Diminished breath sounds at the bases, no wheezing or crackles. ABDOMEN: Soft, nontender, nondistended, normoactive bowel sounds. Ostomy seen MUSCULOSKELETAL: No joint swelling or deformity. EXTREMITIES: No cyanosis, atrophy of lower extremities seen NEUROLOGICAL: Gross neurological examination did not reveal any focal deficits. SKIN: No rashes. Assessment and plan Bilateral gram-negative pneumonia possibility of aspiration - Acute respiratory failure requiring mechanical ventilation ,bronchoscopy 06/22/2024 with cultures positive for Pseudomonas aeruginosa and corynebacterium striatum. Repeat bronchoscopy with BAL 07/04/2024 and 07/07/2024 - Crohn's disease with ileostomy in the past patient is presently on TPN - Right sided otitis media - Tracheobronchomalacia - CVA TIA - History of DVT Monitor vital signs Monitor CBC Monitor CMP Continue telemetry monitoring Continue oxygen supplementation via trach bronchoscopy 06/22/2024 with cultures positive for Pseudomonas aeruginosa and c orynebacterium striatum. Repeat bronchoscopy with BAL 07/04/2024 and 07/07/24 Continue Lovenox Continue on Avycaz and vancomycin Continue TPN and lipids Continue DuoNeb inhalations Pulmonology following ID following Labs and medication were reviewed.. Continue same treatment. Continue with symptomatic treatment. Resume home medication. Monitor labs and vitals. DVT and GI prophylaxis. Further recommendations as per clinical course of the patient Dictation was produced using [employer] dictation software. please excuse any grammatical, word or spelling errors. Objective - Vital Signs Vital signs: Vital Signs Temp 97.9 F 07/13/24 08:00 Pulse 79 07/13/24 08:00 Resp 19 07/13/24 08:00 BP 122/61 07/13/24 08:00 Pulse Ox 98 07/13/24 08:00 FiO2 28 07/13/24 09:50 Intake & Output 07/12/24 07/13/24 07/13/24 18:59 06:59 18:59 Intake Total 4079.0 900 Output Total 1650 2800 Balance 2429.0 -1900 Weight 93.6 kg Intake: IV 1465 200 0.9 Normal Saline @ KVO 100 Ceftazidime/Avibactam 2.5 100 200 gm In Sodium Chloride 0. 9% 100 ml @ 50 mls/hr IVPB Q8H [facility] Rx#: [id number] Mvi, Adult No.4 with Vit 765 K 10 ml Trace (Conc-1Ml/ Dose) 1 ml Sodium Chloride 4Meq/ml Vial 60 meq Potassium Chloride 30 meq Calcium Gluconate 1 gm Magnesium Sulfate gm 1 .25 gm Sodium Phosphate 27 mmol In Amino Acids 5 %/Dextrose 20 % 1,000 ml @ 85 mls/hr IV .BY DURATION ANNIE Rx#: [id number] Vancomycin 1,750 mg In 500 Sodium Chloride 0.9% 500 ml 500 ml @ 167 mls/hr IVPB Q16H [facility] Rx#: [id number] Intake, IV Titration 2114.0 500 Amount Mvi, Adult No.4 with Vit 1062.5 K 10 ml Trace (Conc-1Ml/ Dose) 1 ml Sodium Chloride 4Meq/ml Vial 60 meq Potassium Chloride 30 meq Calcium Gluconate 1 gm Magnesium Sulfate gm 1 .25 gm Sodium Phosphate 27 mmol In Amino Acids 5 %/Dextrose 20 % 1,000 ml @ 85 mls/hr IV .BY DURATION [facility] Rx#: [id number] Sodium Chloride 4Meq/ml 1051.5 Vial 60 meq Potassium Chloride 30 meq Calcium Gluconate 1 gm Magnesium Sulfate gm 1.25 gm Sodium Phosphate 27 mmol In Amino Acids 5 %/Dextrose 20 % 1,000 ml @ 85 mls/hr IV .BY DURATION [facility] Rx#: [id number] Vancomycin 1,750 mg In 500 Sodium Chloride 0.9% 500 ml 500 ml @ 167 mls/hr IVPB Q16H [facility] Rx#: [id number] Oral 500 200 Output: Urine 1100 1900 Stool 550 900 Other: Voiding Method Indwelling Catheter Indwelling Catheter ABP, PAP, CO, CI - Last Documented Arterial Blood Pressure 134/50 - Labs CBC & Chem 7: 07/13/24 04:41 07/13/24 04:41 Labs: Abnormal Lab Results - Last 24 Hours (Table) 07/12/24 07/12/24 07/13/24 Range/Units 11:55 12:42 04:41 RBC (4.40-5.60) 10*6/uL Hgb (13.0-17.0) g/dL Hct (39.6-50.0) % MCH (27.0-32.0) pg MCHC (32.0-37.0) g/dL Creatinine 0.29 L 0.34 L (0.66-1.25) mg/dL Glucose 131 H (74-99) mg/dL POC Glucose (mg/dL) 129 H (70-110) mg/dL 07/13/24 Range/Units 04:41 RBC 4.12 L (4.40-5.60) 10*6/uL Hgb 10.2 L (13.0-17.0) g/dL Hct 36.2 L (39.6-50.0) % MCH 24.8 L (27.0-32.0) pg MCHC 28.2 L (32.0-37.0) g/dL Creatinine (0.66-1.25) mg/dL Glucose (74-99) mg/dL POC Glucose (mg/dL) (70-110) mg/dL
--- NOTE | 2024-07-13 13:06 | P.PN ---
Subjective Progress Note Date: 07/12/24 Principal diagnosis: Reason for follow-up pneumonia Patient is a 49-year-old male with a past medical history significant for chron's disease in this patient who did have multiple surgeries and complication as far as abdominal surgeries did have history of recurrent pn eumonia vent dependent respiratory failure currently on a trach collar CVA TIA patient has been brought into the hospital concerning for chest pain patient also have abnormal chest x-ray concern for possible pneumonia prompting this consultation. On today's evaluation that is 07/12/2024, patient has been afebrile, patient is breathing comfortably and is currently on trach collar, patient denies having any chest pain or any worsening cough, patient denies nausea vomiting or abdominal pain. Patient did have a creatinine 0.29 no CBC was done today Objective - Vital Signs Vital signs: Vital Signs Temp 97.4 F L 07/12/24 08:00 Pulse 88 07/12/24 12:05 Resp 22 07/12/24 12:05 BP 127/55 07/10/24 10:00 Pulse Ox 96 07/12/24 10:00 FiO2 28 07/12/24 08:31 Intake & Output 07/11/24 07/12/24 07/12/24 18:59 06:59 18:59 Intake Total 1520.2 3058.5 Output Total 3325 2050 Balance -1804.8 1008.5 Weight 93.7 kg Intake: IV 1437 1896 0.9 Normal Saline @ KVO 227 276 Ceftazidime/Avibactam 2.5 200 100 gm In Sodium Chloride 0. 9% 100 ml @ 50 mls/hr IVPB Q8H [facility] Rx#: [id number] Mvi, Adult No.4 with Vit 510 1020 K 10 ml Trace (Conc-1Ml/ Dose) 1 ml Sodium Chloride 4Meq/ml Vial 60 meq Potassium Chloride 30 meq Calcium Gluconate 1 gm Magnesium Sulfate gm 1 .25 gm Sodium Phosphate 27 mmol In Amino Acids 5 %/Dextrose 20 % 1,000 ml @ 85 mls/hr IV .BY DURATION [facility] Rx#: [id number] Vancomycin 1,750 mg In 500 500 Sodium Chloride 0.9% 500 ml 500 ml @ 167 mls/hr IVPB Q16H [facility] Rx#: [id number] Intake, IV Titration 83.2 1162.5 Amount Fat Emulsion 20% 250 ml @ 83.2 20.833 mls/hr IV Q72H [facility] Rx#:[id number] Magnesium Sulfate-D5w Pmx 100 1 gm In Dextrose/Water 1 100ml.bag @ 100 mls/hr IVPB ONCE ONE Rx#: [id number] Mvi, Adult No.4 with Vit 1062.5 K 10 ml Trace (Conc-1Ml/ Dose) 1 ml Sodium Chloride 4Meq/ml Vial 60 meq Potassium Chloride 30 meq Calcium Gluconate 1 gm Magnesium Sulfate gm 1 .25 gm Sodium Phosphate 27 mmol In Amino Acids 5 %/Dextrose 20 % 1,000 ml @ 85 mls/hr IV .BY DURATION [facility] Rx#: [id number] Output: Gastric Drainage 400 Urine 1725 1250 Stool 1200 800 Other: Voiding Method Indwelling Catheter Indwelling Catheter Indwelling Catheter ABP, PAP, CO, CI - Last Documented Arterial Blood Pressure 134/50 - Exam GENERAL DESCRIPTION: Middle-age male intubated with a trach RESPIRATORY SYSTEM: Unlabored breathing , coarse breath sounds bilaterally HEART: S1 S2 regular rate and rhythm , ABDOMEN: Soft , no tenderness EXTREMITIES: Swelling to the leg no redness - Labs CBC & Chem 7: 07/13/24 04:41 07/13/24 04:41 Labs: Abnormal Lab Results - Last 24 Hours (Table) 07/11/24 07/12/24 07/12/24 Range/Units 16:17 03:15 06:07 Potassium 3.3 L (3.5-5.1) mmol/L Creatinine 0.35 L (0.66-1.25) mg/dL Glucose 137 H (74-99) mg/dL POC Glucose (mg/dL) 125 H 126 H (70-110) mg/dL 07/12/24 07/12/24 Range/Units 11:55 12:42 Potassium (3.5-5.1) mmol/L Creatinine 0.29 L (0.66-1.25) mg/dL Glucose (74-99) mg/dL POC Glucose (mg/dL) 129 H (70-110) mg/dL Assessment and Plan (1) Abnormal chest x-ray Current Visit: Yes Status: Acute Code(s): R93.89 - ABNORMAL FINDINGS ON DX IMAGING OF OTH BODY STRUCTURES SNOMED Code(s): 484754386 (2) Penicillin allergy Current Visit: Yes Status: Acute Code(s): Z88.0 - ALLERGY STATUS TO PENICILLIN SNOMED Code(s): 36531627 (3) Pneumonia Current Visit: No Status: Acute Code(s): J18.9 - PNEUMONIA, UNSPECIFIED ORGANISM SNOMED Code(s): 978638772 (4) Sepsis Current Visit: No Status: Acute Code(s): A41.9 - SEPSIS, UNSPECIFIED ORGANISM SNOMED Code(s): 57305598 Plan: 1patient did have worsening of his respiratory status requiring intubation and transferred to ICU also spiked a fever And did have a heart rate in the 90s medically ready for SIRS/sepsis source likely left lower lobe pneumonia concerning for possible gram-negative in this patient who did have Zosyn allergies that would limit the number of antibiotics safe to use. 2patient is status post bronchoscopy lavage as well as sputum culture which grew multidrug-resistant Pseudomonas aeruginosa resistant to meropenem sensitive to Zosyn however the patient is allergic to Zosyn 3patient did have resolution of his fever, white count has been normal BAL cultures did grow Pseudomonas as well 4patient CT of the chest shows bibasilar atelectasis/pneumonia for the patient inflammatory markers are normal, more likely dealing with atelectasis rather than persistent pneumonia, has received about 17 days of avycaz and 11 days of vancomycin should be enough we will consider discontinuation of this antibiotic and monitor the patient closely off antibiotic this was discussed with the mother at the bedside question concern answered Dictation was produced using [employer] dictation software. please excuse any grammatical, word or spelling errors. Time with Patient: Less than 30
--- NOTE | 2024-07-13 13:38 | P.PN ---
Subjective Progress Note Date: 07/13/24 Principal diagnosis: Acute on chronic hypoxic respiratory failure, multifactorial On 07/10/2024, the patient is awake and alert and communicating. He was able to trach collor 28% FIO2 over the past 24 hours. Started on feeding. Chest x-ray findings are essentially unchanged. Doing well. No significant respiratory secretions. Most recent bronchial cultures are still showing Pseudomonas aeruginosa and the patient remains on a combination of ceftazidime IV Bactrim and vancomycin. The patient remains hemodynamically stable. The patient has no specific complaints. The patient has increased anxiety and the patient is currently on Ativan 1 mg every 6 hours IV. Respiratory medications remain unchanged. Remains on Lovenox therapeutic dose 90 mg subcu every 12 hours. Remains on TPN for nutritional support which is running at a rate of 65 cc an hour. Fluid balance is - 1.8 L over the past 24 hours and the patient is currently on Lasix 20 mg IV every 12 hours. Blood work from today noted 07/11/2024, the patient remains on a trach collar and the patient on 28% trach collar for the past 48 hours. Denies any difficulties. Awake and alert and communicating. Continues to be on TPN rate of 22 cc an hour. Continues to be in place 20 mg and 5012 hours. Fluid balance is negative in the order of 1.1 L over the past 24 hours. Calm and comfortable. Anxiety is well treated and the patient is currently on buspirone and Ativan. BUN 17 with a creatinine of 0.4. Sodium levels at 138 and potassium level is at 3.9. Bronchodilators are still being administered. No significant respiratory secretions. Patient looks to be quite comfortable. Remains on ceftazidime avibactam regarding ongoing pseudomonal pneumonia/infection. Remains on vancomycin. ID is on the case. Remains on Lovenox 90 mg SQ every 12 hours. On 07/12/2024, the patient remains on a 28% trach collar and the patient has been on a trach collar for the past 72 hours without any major difficulties. No significant tracheal secretion. The patient is able to utilize his speaking valve. Remains on TPN at rate of 82 cc an hour. Output from the gastrointestinal fistula is in order of 600 cc over 8 hours. The patient is in a negative fluid balance of 796 cc over the past 24 hours and the patient continues to receive Lasix 20 mg IV every 12 hours. Sodium levels at 137, potassium is at 3.3, chlorides 101 with a bicarb of 27, BUN is 19 with a creatinine of 0.35. No CBCs available from today. Remains on the same antibiotic coverage including combination of ceftazidime avibactam and vancomycin. The patient has a triple-lumen catheter in his left subclavian that can be essentially removed. He also has a double-lumen PICC. Awake and alert and communicating. Denies having any major respiratory distress. Chronically debilitated. Anxiety levels are adequate. Patient was seen today on 07/13/2024, remains in the ICU, he is now on trach collar 28% FiO2 has been on the trach collar for 3 days. Patient remains on vancomycin day #12, is also on Avycaz day #19. He is on Lasix 20 mg IV push every 12 hours patient seems to be very comfortable not in distress, hence I plan to transfer the patient out of the ICU today medical floor/3 S. WBC count today 6.3 hemoglobin 10.2 electrolytes are normal renal profile is normal chest x-ray on 07/10/2024 showed left lower lobe atelectasis/infiltrate. Objective - Vital Signs Vital signs: Vital Signs Temp 97.9 F 07/13/24 12:00 Pulse 90 07/13/24 12:00 Resp 18 07/13/24 12:00 BP 116/67 07/13/24 12:00 Pulse Ox 97 07/13/24 12:00 FiO2 28 07/13/24 12:00 Intake & Output 07/12/24 07/13/24 07/13/24 18:59 06:59 18:59 Intake Total 4079.0 900 3251.5 Output Total 1650 2800 1850 Balance 2429.0 -1900 1401.5 Weight 93.6 kg Intake: IV 1465 200 500 0.9 Normal Saline @ KVO 100 Ceftazidime/Avibactam 2.5 100 200 gm In Sodium Chloride 0. 9% 100 ml @ 50 mls/hr IVPB Q8H [facility] Rx#: [id number] Mvi, Adult No.4 with Vit 765 K 10 ml Trace (Conc-1Ml/ Dose) 1 ml Sodium Chloride 4Meq/ml Vial 60 meq Potassium Chloride 30 meq Calcium Gluconate 1 gm Magnesium Sulfate gm 1 .25 gm Sodium Phosphate 27 mmol In Amino Acids 5 %/Dextrose 20 % 1,000 ml @ 85 mls/hr IV .BY DURATION [facility] Rx#: [id number] Vancomycin 1,750 mg In 500 500 Sodium Chloride 0.9% 500 ml 500 ml @ 167 mls/hr IVPB Q16H [facility] Rx#: [id number] Intake, IV Titration 2114.0 500 1051.5 Amount Mvi, Adult No.4 with Vit 1062.5 K 10 ml Trace (Conc-1Ml/ Dose) 1 ml Sodium Chloride 4Meq/ml Vial 60 meq Potassium Chloride 30 meq Calcium Gluconate 1 gm Magnesium Sulfate gm 1 .25 gm Sodium Phosphate 27 mmol In Amino Acids 5 %/Dextrose 20 % 1,000 ml @ 85 mls/hr IV .BY DURATION [facility] Rx#: [id number] Sodium Chloride 4Meq/ml 1051.5 1051.5 Vial 60 meq Potassium Chloride 30 meq Calcium Gluconate 1 gm Magnesium Sulfate gm 1.25 gm Sodium Phosphate 27 mmol In Amino Acids 5 %/Dextrose 20 % 1,000 ml @ 85 mls/hr IV .BY DURATION [facility] Rx#: [id number] Vancomycin 1,750 mg In 500 Sodium Chloride 0.9% 500 ml 500 ml @ 167 mls/hr IVPB Q16H [facility] Rx#: [id number] Oral 500 200 TPN/PPN 1700 Mvi, Adult No.4 with Vit 1700 K 10 ml Trace (Conc-1Ml/ Dose) 1 ml Sodium Chloride 4Meq/ml Vial 60 meq Potassium Chloride 30 meq Calcium Gluconate 1 gm Magnesium Sulfate gm 1 .25 gm Sodium Phosphate 27 mmol In Amino Acids 5 %/Dextrose 20 % 1,000 ml @ 85 mls/hr IV .BY DURATION [facility] Rx#: [id number] Output: Urine 1100 1900 1500 Stool 550 900 350 Other: Voiding Method Indwelling Catheter Indwelling Catheter Indwelling Catheter ABP, PAP, CO, CI - Last Documented Arterial Blood Pressure 134/50 - Exam GENERAL: A 48-year-old male patient, resting in bed, on 28% trach collar Head exam was generally normal. There was no scleral icterus or corneal arcus. Mucous membranes were moist. HEENT: No scleral icterus. No conjunctival pallor. Normocephalic, atraumatic. Tracheostomy tube seems to be intact CARDIOVASCULAR: S1 and S2 present. No murmurs, rubs, or gallops. PULMONARY: Diminished breath sounds were bilaterally. No crackles rhonchi or wheezes ABDOMEN: Soft, nontender, nondistended, normoactive bowel sounds. No palpable organomegaly. Functioning ileostomy. 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 EXTREMITIES: No cyanosis, clubbing, or pedal edema. Right-sided BKA noted. NEUROLOGICAL: Profound weakness in all 4 extremities, weak cough, extensive muscle atrophy in all 4 extremities. Patient is awake SKIN: No rashes. No open wounds. 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 Previous history of recurrent ventilator dependent respiratory failure, secondary to pneumonia and mucous plugging. The patient has undergone previous bronchoscopies and cultures from bronchoscopy on 12/31/2023 was positive for MRSA and subsequent bronchoscopy on 01/03/2024 was positive for Klebsiella pneumoniae and Bella glabrata. Most recent sputum analysis from 02/26/2024 and 03/17/2024 was positive for Pseudomonas aeruginosa and the patient was treated successfully. Status post bronchoscopy and BAL of left lower lobe on 06/22/2024, with improvement noted in his left lower lobe pneumonia cultures/BAL from the bronchoscopy are negative although sputum earlier was positive for gram-negative bacilli. Previous episodes of sepsis secondary to pneumonia Crohn's disease, with previous complication of bowel perforation s/p colectomy and diverting ileostomy. The patient also has had previous history of abdominal wall bleeding there is currently inactive and stable. The patient has a high output ileostomy TPN for nutritional support Tracheobronchomalacia History of DVT, on therapeutic dose of Lovenox CVA/TIA, with residual left-sided weakness Right BKA History of asystole/cardiac arrest in 2021 Hypotension requiring norepinephrine, possible sepsis and septic shock. Recommendation: Continue patient on trach collar Keep cuff deflated at the tracheostomy to Continue antibiotics as per ID on the case Continue bronchodilators Continue nutritional support/TPN GI DVT prophylaxis Continue TPN Will continue to follow, long-term prognosis remains poor and guarded patient has multiple complex issues and multiple comorbidities. Time with Patient: Less than 30
--- NOTE | 2024-07-13 22:24 | P.PN ---
Subjective Progress Note Date: 07/13/24 Principal diagnosis: Reason for follow-up pneumonia Patient is a 49-year-old male with a past medical history significant for chron's disease in this patient who did have multiple surgeries and complication as far as abdominal surgeries did have history of recurrent pn eumonia vent dependent respiratory failure currently on a trach collar CVA TIA patient has been brought into the hospital concerning for chest pain patient also have abnormal chest x-ray concern for possible pneumonia prompting this consultation. On today's evaluation that is 07/13/2024, Patient is afebrile this morning patient is breathing comfortably on a trach collar patient denies any chest pain or worsening cough no nausea vomiting or any other changes. Patient white count 6.31, creatinine 0.34 Objective - Vital Signs Vital signs: Vital Signs Temp 97.9 F 07/13/24 12:00 Pulse 90 07/13/24 12:00 Resp 18 07/13/24 12:00 BP 116/67 07/13/24 12:00 Pulse Ox 97 07/13/24 12:00 FiO2 28 07/13/24 12:00 Intake & Output 07/12/24 07/13/24 07/13/24 18:59 06:59 18:59 Intake Total 4079.0 900 3251.5 Output Total 1650 2800 1850 Balance 2429.0 -1900 1401.5 Weight 93.6 kg Intake: IV 1465 200 500 0.9 Normal Saline @ KVO 100 Ceftazidime/Avibactam 2.5 100 200 gm In Sodium Chloride 0. 9% 100 ml @ 50 mls/hr IVPB Q8H [facility] Rx#: [id number] Mvi, Adult No.4 with Vit 765 K 10 ml Trace (Conc-1Ml/ Dose) 1 ml Sodium Chloride 4Meq/ml Vial 60 meq Potassium Chloride 30 meq Calcium Gluconate 1 gm Magnesium Sulfate gm 1 .25 gm Sodium Phosphate 27 mmol In Amino Acids 5 %/Dextrose 20 % 1,000 ml @ 85 mls/hr IV .BY DURATION [facility] Rx#: [id number] Vancomycin 1,750 mg In 500 500 Sodium Chloride 0.9% 500 ml 500 ml @ 167 mls/hr IVPB Q16H [facility] Rx#: [id number] Intake, IV Titration 2114.0 500 1051.5 Amount Mvi, Adult No.4 with Vit 1062.5 K 10 ml Trace (Conc-1Ml/ Dose) 1 ml Sodium Chloride 4Meq/ml Vial 60 meq Potassium Chloride 30 meq Calcium Gluconate 1 gm Magnesium Sulfate gm 1 .25 gm Sodium Phosphate 27 mmol In Amino Acids 5 %/Dextrose 20 % 1,000 ml @ 85 mls/hr IV .BY DURATION [facility] Rx#: [id number] Sodium Chloride 4Meq/ml 1051.5 1051.5 Vial 60 meq Potassium Chloride 30 meq Calcium Gluconate 1 gm Magnesium Sulfate gm 1.25 gm Sodium Phosphate 27 mmol In Amino Acids 5 %/Dextrose 20 % 1,000 ml @ 85 mls/hr IV .BY DURATION [facility] Rx#: [id number] Vancomycin 1,750 mg In 500 Sodium Chloride 0.9% 500 ml 500 ml @ 167 mls/hr IVPB Q16H [facility] Rx#: [id number] Oral 500 200 TPN/PPN 1700 Mvi, Adult No.4 with Vit 1700 K 10 ml Trace (Conc-1Ml/ Dose) 1 ml Sodium Chloride 4Meq/ml Vial 60 meq Potassium Chloride 30 meq Calcium Gluconate 1 gm Magnesium Sulfate gm 1 .25 gm Sodium Phosphate 27 mmol In Amino Acids 5 %/Dextrose 20 % 1,000 ml @ 85 mls/hr IV .BY DURATION [facility] Rx#: [id number] Output: Urine 1100 1900 1500 Stool 550 900 350 Other: Voiding Method Indwelling Catheter Indwelling Catheter Indwelling Catheter ABP, PAP, CO, CI - Last Documented Arterial Blood Pressure 134/50 - Exam GENERAL DESCRIPTION: Middle-age male intubated with a trach RESPIRATORY SYSTEM: Unlabored breathing , coarse breath sounds bilaterally HEART: S1 S2 regular rate and rhythm , ABDOMEN: Soft , no tenderness EXTREMITIES: Swelling to the leg no redness - Labs CBC & Chem 7: 07/13/24 04:41 07/13/24 04:41 Labs: Abnormal Lab Results - Last 24 Hours (Table) 07/12/24 07/13/24 07/13/24 Range/Units 12:42 04:41 04:41 RBC 4.12 L (4.40-5.60) 10*6/uL Hgb 10.2 L (13.0-17.0) g/dL Hct 36.2 L (39.6-50.0) % MCH 24.8 L (27.0-32.0) pg MCHC 28.2 L (32.0-37.0) g/dL Creatinine 0.29 L 0.34 L (0.66-1.25) mg/dL Glucose 131 H (74-99) mg/dL Assessment and Plan (1) Abnormal chest x-ray Current Visit: Yes Status: Acute Code(s): R93.89 - ABNORMAL FINDINGS ON DX IMAGING OF OTH BODY STRUCTURES SNOMED Code(s): 681797783 (2) Penicillin allergy Current Visit: Yes Status: Acute Code(s): Z88.0 - ALLERGY STATUS TO PENICI LLIN SNOMED Code(s): 66286456 (3) Pneumonia Current Visit: No Status: Acute Code(s): J18.9 - PNEUMONIA, UNSPECIFIED ORGANISM SNOMED Code(s): 068696632 (4) Sepsis Current Visit: No Status: Acute Code(s): A41.9 - SEPSIS, UNSPECIFIED ORGANISM SNOMED Code(s): 61096736 Plan: 1patient did have worsening of his respiratory status requiring intubation and transferred to ICU also spiked a fever And did have a heart rate in the 90s medically ready for SIRS/sepsis source likely left lower lobe pneumonia concerning for possible gram-negative in this patient who did have Zosyn allergies that would limit the number of antibiotics safe to use. 2patient is status post bronchoscopy lavage as well as sputum culture which grew multidrug-resistant Pseudomonas aeruginosa resistant to meropenem sensitive to Zosyn however the patient is allergic to Zosyn 3patient did have resolution of his fever, white count has been normal BAL cultures did grow Pseudomonas as well 4patient CT of the chest shows bibasilar atelectasis/pneumonia for the patient inflammatory markers are normal, more likely dealing with atelectasis rather than persistent pneumonia, has received about 18 days of avycaz and 12 days of vancomycin that should be more than enough for underlying pneumonia I will go ahead and discontinue his Avycaz and vancomycin and monitor the patient closely off antibiotic repeat, his care has been discussed in detail with the mother at the bedside and all questions answered Dictation was produced using [employer] software. please excuse any grammatical, word or spelling errors. Time with Patient: Less than 30
[2024-07-13] MEDS: 1: MVI, ADULT NO.4 WITH VIT K 10 ML, TRACE (CONC-1ML/DOSE) 1 ML, SODIUM CHLORIDE 4MEQ/ML IV SCH (23:12)
[2024-07-14 06:27] LABS: African American GFR (CKD) >90 (>60 ml/min/1.73 sqM); Anion Gap 6 mmol/L; Blood Urea Nitrogen 21 mg/dL (9-20); Carbon Dioxide 32 mmol/L (22-30); Chloride 101 mmol/L (98-107); Glucose 141 mg/dL (74-99); Magnesium 1.9 mg/dL (1.6-2.3); Non-African American GFR(CKD) >90 (>60 ml/min/1.73 sqM); Phosphorus 3.6 mg/dL (2.5-4.5); Potassium 4.3 mmol/L (3.5-5.1); Sodium 139 mmol/L (137-145)
--- NOTE | 2024-07-14 11:29 | P.PN ---
Subjective Progress Note Date: 07/07/24 Principal diagnosis: Acute on chronic hypoxic respiratory failure, multifactorial On 07/10/2024, the patient is awake and alert and communicating. He was able to trach collor 28% FIO2 over the past 24 hours. Started on feeding. Chest x-ray findings are essentially unchanged. Doing well. No significant respiratory secretions. Most recent bronchial cultures are still showing Pseudomonas aeruginosa and the patient remains on a combination of ceftazidime IV Bactrim and vancomycin. The patient remains hemodynamically stable. The patient has no specific complaints. The patient has increased anxiety and the patient is currently on Ativan 1 mg every 6 hours IV. Respiratory medications remain unchanged. Remains on Lovenox therapeutic dose 90 mg subcu every 12 hours. Remains on TPN for nutritional support which is running at a rate of 65 cc an hour. Fluid balance is - 1.8 L over the past 24 hours and the patient is currently on Lasix 20 mg IV every 12 hours. Blood work from today noted 07/11/2024, the patient remains on a trach collar and the patient on 28% trach collar for the past 48 hours. Denies any difficulties. Awake and alert and communicating. Continues to be on TPN rate of 22 cc an hour. Continues to be in place 20 mg and 5012 hours. Fluid balance is negative in the order of 1.1 L over the past 24 hours. Calm and comfortable. Anxiety is well treated and the patient is currently on buspirone and Ativan. BUN 17 with a creatinine of 0.4. Sodium levels at 138 and potassium level is at 3.9. Bronchodilators are still being administered. No significant respiratory secretions. Patient looks to be quite comfortable. Remains on ceftazidime avibactam regarding ongoing pseudomonal pneumonia/infection. Remains on vancomycin. ID is on the case. Remains on Lovenox 90 mg SQ every 12 hours. On 07/12/2024, the patient remains on a 28% trach collar and the patient has been on a trach collar for the past 72 hours without any major difficulties. No significant tracheal secretion. The patient is able to utilize his speaking valve. Remains on TPN at rate of 82 cc an hour. Output from the gastrointestinal fistula is in order of 600 cc over 8 hours. The patient is in a negative fluid balance of 796 cc over the past 24 hours and the patient continues to receive Lasix 20 mg IV every 12 hours. Sodium levels at 137, potassium is at 3.3, chlorides 101 with a bicarb of 27, BUN is 19 with a creatinine of 0.35. No CBCs available from today. Remains on the same antibiotic coverage including combination of ceftazidime avibactam and vancomycin. The patient has a triple-lumen catheter in his left subclavian that can be essentially removed. He also has a double-lumen PICC. Awake and alert and communicating. Denies having any major respiratory distress. Chronically debilitated. Anxiety levels are adequate. Patient was seen today on 07/13/2024, remains in the ICU, he is now on trach collar 28% FiO2 has been on the trach collar for 3 days. Patient remains on vancomycin day #12, is also on Avycaz day #19. He is on Lasix 20 mg IV push every 12 hours patient seems to be very comfortable not in distress, hence I plan to transfer the patient out of the ICU today medical floor/3 S. WBC count today 6.3 hemoglobin 10.2 electrolytes are normal renal profile is normal chest x-ray on 07/10/2024 showed left lower lobe atelectasis/infiltrate. Seen today on 07/14/2024, remains in the ICU as an overflow, remains on trach collar at 20% FiO2, patient has been on trach collar now for 4 days. Remains on antibiotics, I believe the patient received significant amount of antibiotics including vancomycin day #13 and Avycaz day #20. I believe he could come off and on antibiotics, being followed by infectious disease, we are in the process of arranging for the patient to possibly transfer to group home. Patient finally agreed to go to group home instead of going home. Labs today showed relatively normal CBC hemoglobin is 10.2 electrolytes are normal BUN is 21 creatinine 0.30 Objective - Vital Signs Vital signs: Vital Signs Temp 98.0 F 07/14/24 08:00 Pulse 92 07/14/24 10:21 Resp 27 H 07/14/24 10:00 BP 122/72 07/14/24 10:00 Pulse Ox 98 07/14/24 10:00 FiO2 28 07/14/24 09:58 Intake & Output 07/13/24 07/14/24 07/14/24 18:59 06:59 18:59 Intake Total 3251.5 Output Total 1850 1900 475 Balance 1401.5 -1900 -475 Intake: IV 500 Vancomycin 1,750 mg In 500 Sodium Chloride 0.9% 500 ml 500 ml @ 167 mls/hr IVPB Q16H [facility] Rx#: [id number] Intake, IV Titration 1051.5 Amount Sodium Chloride 4Meq/ml 1051.5 Vial 60 meq Potassium Chloride 30 meq Calcium Gluconate 1 gm Magnesium Sulfate gm 1.25 gm Sodium Phosphate 27 mmol In Amino Acids 5 %/Dextrose 20 % 1,000 ml @ 85 mls/hr IV .BY DURATION [facility] Rx#: [id number] TPN/PPN 1700 Mvi, Adult No.4 with Vit 1700 K 10 ml Trace (Conc-1Ml/ Dose) 1 ml Sodium Chloride 4Meq/ml Vial 60 meq Potassium Chloride 30 meq Calcium Gluconate 1 gm Magnesium Sulfate gm 1 .25 gm Sodium Phosphate 27 mmol In Amino Acids 5 %/Dextrose 20 % 1,000 ml @ 85 mls/hr IV .BY DURATION [facility] Rx#: [id number] Output: Urine 1500 1200 475 Stool 350 700 Other: Voiding Method Indwelling Catheter Indwelling Catheter Indwelling Catheter ABP, PAP, CO, CI - Last Documented Arterial Blood Pressure 134/50 - Exam GENERAL: A 48-year-old male patient, resting in bed, on 28% trach collar Head exam was generally normal. There was no scleral icterus or corneal arcus. Mucous membranes were moist. HEENT: No scleral icterus. No conjunctival pallor. Normocephalic, atraumatic. Tracheostomy tube seems to be intact CARDIOVASCULAR: S1 and S2 present. No murmurs, rubs, or gallops. PULMONARY: Diminished breath sounds were bilaterally. No crackles rhonchi or wheezes ABDOMEN: Soft, nontender, nondistended, normoactive bowel sounds. No palpable organomegaly. Functioning ileostomy. The patient also has evidence of enterocu taneous fistula over the anterior abdominal wall MUSCULOSKELETAL: No joint swelling or deformity. EXTREMITIES: No cyanosis, clubbing, or pedal edema. Right-sided BKA noted. NEUROLOGICAL: Profound weakness in all 4 extremities, weak cough, extensive muscle atrophy in all 4 extremities. Patient is awake SKIN: No rashes. No open wounds. - Labs CBC & Chem 7: 07/13/24 04:41 07/14/24 05:42 Labs: Abnormal Lab Results - Last 24 Hours (Table) 07/14/24 Range/Units 05:42 Carbon Dioxide 32 H (22-30) mmol/L BUN 21 H (9-20) mg/dL Creatinine 0.30 L (0.66-1.25) mg/dL Glucose 141 H (74-99) mg/dL Microbiology - Last 24 Hours (Table) 07/04/24 08:45 Fungal Culture - Preliminary Bronchoalviolar Lavage - Left 07/04/24 08:45 Acid Fast Bacilli Smear - Preliminary Bronchoalviolar Lavage - Left Acid Fast Bacilli Culture - Preliminary Assessment and Plan Assessment: Impression: Acute on chronic hypoxic and hypercapnic respiratory failure, multifactorial Acute left lower lobe pneumonia 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 Previous history of recurrent ventilator dependent respiratory failure, secondary to pneumonia and mucous plugging. The patient has undergone previous bronchoscopies and cultures from bronchoscopy on 12/31/2023 was positive for MRSA and subsequent bronchoscopy on 01/03/2024 was positive for Klebsiella pneumoniae and Bella glabrata. Most recent sputum analysis from 02/26/2024 and 03/17/2024 was positive for Pseudomonas aeruginosa and the patient was treated successfully. Status post bronchoscopy and BAL of left lower lobe on 06/22/2024, with improvement noted in his left lower lobe pneumonia cultures/BAL from the bronchoscopy are negative although sputum earlier was positive for gram-negative bacilli. Previous episodes of sepsis secondary to pneumonia Crohn's disease, with previous complication of bowel perforation s/p colectomy and diverting ileostomy. The patient also has had previous history of abdominal wall bleeding there is currently inactive and stable. The patient has a high output ileostomy TPN for nutritional support Tracheobronchomalacia History of DVT, on therapeutic dose of Lovenox CVA/TIA, with residual left-sided weakness Right BKA History of asystole/cardiac arrest in 2021 Hypotension requiring norepinephrine, possible sepsis and septic shock. Recommendation: Continue patient on trach collar Keep cuff deflated at the tracheostomy to Consider stopping antibiotics patient had full course of treatment with vancomycin and Avycaz Continue bronchodilators Continue nutritional support/TPN GI DVT prophylaxis Continue TPN Consider discharge planning, arrangements are being made to hopefully get the patient to ECF. Overall long-term prognosis and considering his multiple comorbidities is poor. Time with Patient: Less than 30
--- NOTE | 2024-07-14 13:09 | P.DS ---
Providers Date of admission: 06/22/24 06:38 Expected date of discharge: 07/14/24 Attending physician: Marciano Monahan MD Consults: 06/19/24 16:46 Consult Physician Routine Consulting Provider: Estela Holt Consult Reason/Comments: pneumonia Do you want consulting provider notified?: Yes Consult Physician Routine Consulting Provider: Chanel Uriostegui Consult Reason/Comments: sepsis Do you want consulting provider notified?: Yes Primary care physician: Chong Ivey [facility] Course: Discharge diagnoses; Bilateral gram-negative pneumonia possibility of aspiration - Acute respiratory failure requiring mechanical ventilation ,bronchoscopy 06/22/2024 with cultures positive for Pseudomonas aeruginosa and corynebacterium striatum. Repeat bronchoscopy with BAL 07/04/2024 and 07/07/2024 - Crohn's disease with ileostomy in the past patient is presently on TPN - Right sided otitis media - Tracheobronchomalacia - CVA TIA - History of DVT Hospital course; Patient admitted for bilateral cramping due to pneumonia gram-negative organism is not identified yet patient had Pseudomonas in the past patient underwent bronchoscopy patient remains on mechanical ventilation broad-spectrum antibiotics patient has a tracheostomy in place. Patient underwent bronchoalveolar lavage. 06/26/2024 Patient is evaluated in the ICU. Remains on the mechanical ventilator with FiO2 of 40%. Sputum culture reveals pseudomonas aeruginosa, corynebacterium striatum group. He remains on antibiotics with IV ceftazidime/Avibactam. TPN infusing. Labs today reveal white blood cell count 4.72, hgb 7.6, sodium 135, potassium 4.0, BUN 13, creatinine 0.39. Magnesium 1.9. Triglycerides of 183.00. 06/27/2024 Patient is evaluated in the intensive care unit. He is currently on the trach collar. Awake alert and oriented. Chest xray today shows left lower lobe atelectasis or pneumonia. Per mother at the bedside he was only [facility] day prior to returning to the hospital. He will likely need to return to [facility] on [place]. Remains on TPN. White blood cell count 5.07, hgb 7.3, sodium 134, BUN 11, creatinine 0.34. 06/28/2024 Patient is eval today in intensive care unit. He is complaining of pain in the right ear manual examination does reveal some erythema of the canal and eardrum. We will add eardrops and monitor for improvement in symptoms. Patient is awake alert oriented he has tolerated trach collar. Chest x-ray today reveals a developing left lower lobe infiltrate with a small effusion which may be present. He continues on IV meropenem for positive sputum and bronchial washings of Pseudomonas aeruginosa and corynebacterium striatum group. Labs today reveal a white blood cell count of 5.55, hemoglobin 7.4, sodium 135, BUN of 11 creatinine 0.40. 06/29/2024 Patient is evaluated in the intensive care unit he is currently downgraded and pending a bed on the medical floor. Patient is ready for discharge and did discuss with the patient that he needs to follow-up with his family and I will also talk with his family regarding discharge planning if he is able to discharge home versus subacute rehab versus LTAC. Patient is adamant that that [facility] not [facility]. Due to his complex medical needs including PEG tube, TPN, his tracheostomy, ileostomy, and IV antibiotics he may not be a candidate for subacute rehabilitation but referrals were placed by social work. He does state that his right ear feels better after being initiated on antibiotic eardrops and they will be continued at this time. His labs today reveal a white blood cell count of 5.50, hemoglobin 7.6, sodium level of 135, BUN of 9 creatinine 0.37 and magnesium level of 1.8. 06/30/2024 Patient is evaluated in follow-up in the medical floor. He has no acute complaints at this time. He does report again mild improvement in his right ear pain and he continues with the eardrops. Had a long discussion with patient's son over and over the phone regarding discharge planning. Alan is apprehensive about allowing child to return home due to his complex medical needs and somebody having to stay up with him overnight for suctioning and trach care. Open would like [facility] to [facility] for at least another month or so until his other brother comes home from college. Will need to follow-up with patient tomorrow regarding this and awaiting other referrals for any other excepting facility as patient really does not want to return to the [facility]. 07/01/2024 Patient evaluated today resting in bed. Per nursing he was lethargic overnight but seems improved today. Patient is currently a bed at a subacute rehab facility and social work following. He remains on IV ceftazidime/avibactam. Chest x-ray today Reveals stable chest with left-sided pleural effusion. There is opacification of the right lung base and left lung base. Patient is on TPN. Patient is afebrile, heart rate 53, blood pressure 144/67, 100% on trach collar. 07/02/2024 Patient evaluated today in follow up. No acute complaints at this time. Still pending accepting rehab facility. Remains on the IV ceftazidime/avibactam. 07/03/2024 Patient evaluated today in follow up was downgraded to the general medical floor. Report the right ear pain and fullness is better. He continues on IV ceftazidime/Avibactam and IV vancomycin for the pseudomonas in the sputum. No accepting facility so far. He may need to remain hospitalized while he finishes course of antibiotics. He is tolerating the trach collar. 07/04. Patient seen and examined. Patient was a teamed this morning for decrease responsiveness, was found to be hypoxemic, was transferred back to ICU and was placed on ventilator. Patient is currently on breathing treatments. Hemoglobin this morning was 6.8, 1 unit of packed red blood cells ordered. Patient has been started on Levophed 07/05. Patient seen and examined. Patient is currently off sedation, opening eyes. Patient received 2 units of packed red blood cells in total since yesterday, hemoglobin improved to8.3, WBC 6.03, platelet count 229, sodium 137, potassium 3.8, BUN 18, creatinine 0.34, glucose 143, phosphorus 1.8. Critical care planning to trial CPAP 07/06/2024 Patient evaluated today in the intensive care unit. He is awake alert and responsive, he is able to answer simple questions. Under bronchoscopy on 07/04 with preliminary cultures showing pseudomonas aeruginosa; corynebacterium striatum group. Chest xray shows small bilateral pleural effusions. Remains on IV antibiotics. He is on the mechanical ventilator. Hemoglobin better today at 8.5. Sodium of 135, potassium 3.4. 07/07/2024 Patient remains in the intensive care unit. He is awake alert and responsive he is able to talk with a tracheostomy in place. His repeat cultures from the bronchoscopy are showing Pseudomonas aeruginosa and Corynebacterium stratum group. He continues on antibiotics in the form of IV ADK as as well as IV vancomycin. Patient remains off pressor support at this time. ID is following closely. Chest x-ray today reveals a bilateral trace pleural effusion. Patient underwent flexible bronchoscopy today and there was no evidence of mucous plugging or thick secretions. 10 cc of respiratory secretions were suctioned out. Patient had no evidence of tracheal stenosis during the procedure. Has been difficult to wean from the vent. 07/08/2024 Patient is evaluated today in follow up in the intensive care unit. His chest xray today reveals mild pulmonary vascular congestion. He remains on the ventilator currently with FiO2 and the most recent bronchoscopy cultures are showing preliminary pseudomonas aeruginosa. He continues on IV avycaz/ IV vancomycin. Ileostomy change was performed today with son at the bedside. Labs today reveal white blood cell count 5.74, hgb 9.1, sodium 135, potassium 4.3, BUN 13, creatinine 0.29, magnesium 1.9. 07/09/2024 Patient is eval today in follow-up tensive care unit. He remains on a mechanical ventilator with plans for a trach collar trial today. Patient overall feels better and is slightly clinically improved. His repeat sputum culture revealed Pseudomonas aeruginosa. The corynebacterium striatum group is not evident. Chest CT reveals basilar infiltrates and small effusions consistent with pneumonia. Mild splenomegaly. there is moderate elevation of the right hemidiaphragm. He is on day 6 out of 10 of the IV AV cast. His white blood cell count today is 5.21 hemoglobin 10.0, sodium of 135 BUN of 14 creatinine 0.36. Patient's mother was at the bedside and all questions were answered. 07/10/2024 Patient is seen in follow-up currently sitting up in bed eating with mother at the bedside feeding. Patient continues on trach collar 08/12 and reports to feeling well. Patient continues on IV antibiotics as sputum cultures continue to reveal Pseudomonas with pulmonary following as well. Social work/case management following looking into possible ECF as patient has no remaining days left at LTAC. Labs are stable at this time and will follow-up on repeat labs. Replace electrolytes per protocol and being monitored closely as patient remains on TPN. 07/11. Patient seen and examined. Currently on oxygen via trach mask. Continues to be on TPN and Lovenox. Currently on antibiotics Avycaz, vancomycin,. Patient also getting IV Lasix 20 mg Q12 07/12. Patient seen and examined. Continues to be on oxygen via trach mask. Patient is alert, follows commands, answers questions.Labs done this morning showed sodium 137, potassium 3.3, BUN 19, creatinine 0.35 07/13. Patient seen and examined. Labs reviewed showing WBCs 0.31, hemoglobin 10.2, platelet count 210, sodium 138, potassium 3.8, BUN 18, creatinine 0. 34.Continue IV antibiotics. Currently on anticoagulation with Lovenox. Continues to be on TPN. 07/14. Patient seen examined. ID discontinued all antibiotics. Being discharged to [facility] PHYSICAL EXAMINATION: GENERAL: The patient is alert HEENT: Pupils are round and equally reacting to light. Trach collar seen CARDIOVASCULAR: S1 and S2 present. No murmurs, rubs, or gallops. PULMONARY: Diminished breath sounds at the bases, no wheezing or crackles. ABDOMEN: Soft, nontender, nondistended, normoactive bowel sounds. Ostomy seen MUSCULOSKELETAL: No joint swelling or deformity. EXTREMITIES: No cyanosis, atrophy of lower extremities seen NEUROLOGICAL: Gross neurological examination did not reveal any focal deficits. SKIN: No rashes. Dictation was produced using [employer] dictation software. please excuse any grammatical, word or spelling errors. Patient Condition at Discharge: Fair Plan - Discharge Summary Discharge Rx Participant: Yes New Discharge Prescriptions: New Furosemide [Lasix] 20 mg PO DAILY 30 Days #30 tab busPIRone HCl [Buspar] 15 mg PO BID 30 Days #60 tab Continue Pantoprazole [Protonix] 40 mg PO BID Folic Acid 1 mg PO DAILY Albuterol Nebulized [Ventolin Nebulized] 2.5 mg INHALATION RT-Q6H PRN PRN Reason: Shortness Of Breath Thiamine [Vitamin B-1] 100 mg PO DAILY Cholestyramine (with Sugar) [Cholestyramine Packet] 4 gm PO BID Enoxaparin [Lovenox] 90 mg SQ Q12H Loperamide HCl [Imodium A-D] 4 mg PO TID Discharge Medication List Pantoprazole [Protonix] 40 mg PO BID 07/07/22 [History] Albuterol Nebulized [Ventolin Nebulized] 2.5 mg INHALATION RT-Q6H PRN 06/19/24 [History] Cholestyramine (with Sugar) [Cholestyramine Packet] 4 gm PO BID 06/19/24 [History] Enoxaparin [Lovenox] 90 mg SQ Q12H 06/19/24 [History] Folic Acid 1 mg PO DAILY 06/19/24 [History] Loperamide HCl [Imodium A-D] 4 mg PO TID 06/19/24 [History] Thiamine [Vitamin B-1] 100 mg PO DAILY 06/19/24 [History] Furosemide [Lasix] 20 mg PO DAILY 30 Days #30 tab 07/14/24 [Rx] busPIRone HCl [Buspar] 15 mg PO BID 30 Days #60 tab 07/14/24 [Rx] Follow up Appointment(s)/Referral(s): Chong Ivey DO [Primary Care Provider] - 1-2 days Activity/Diet/Wound Care/Special Instructions: Convatec Yasmin Wound Pouch [id number] 245 x 160mm (drain on the side) [facility]: A4357 - Bed Drainage Night Bag (High Output wide tubing) 2 L Change pouch weekly or as needed for leakage, neena son (Alan) for guidance on first change if needed. Convetec: Paste: [id number] Powder [id number] Rin Skin Barrier [id number] Remover [id number] Coloplast: [facility] A5121 Elastic Barrier Strip XL- 6.7in ([id number]) [facility]: A4362 Elastic Barrier Stips ([id number]) Discharge Disposition: TRANSFER TO SNF/ECF
--- NOTE | 2024-07-14 14:53 | P.PN ---
Subjective Progress Note Date: 07/14/24 Principal diagnosis: Reason for follow-up pneumonia Patient is a 49-year-old male with a past medical history significant for chron's disease in this patient who did have multiple surgeries and complication as far as abdominal surgeries did have history of recurrent pn eumonia vent dependent respiratory failure currently on a trach collar CVA TIA patient has been brought into the hospital concerning for chest pain patient also have abnormal chest x-ray concern for possible pneumonia prompting this consultation. On today's evaluation that is 07/14/2024,the patient denies any fever or any chills, patient is breathing comfortably on trach collar 28% FiO2 no chest pain or worsening cough no abdominal pain no new symptoms. The patient white count 6.21, creatinine 0.30 Objective - Vital Signs Vital signs: Vital Signs Temp 98.4 F 07/14/24 12:00 Pulse 90 07/14/24 12:00 Resp 21 07/14/24 12:00 BP 123/70 07/14/24 12:00 Pulse Ox 97 07/14/24 12:00 FiO2 28 07/14/24 12:00 Intake & Output 07/13/24 07/14/24 07/14/24 18:59 06:59 18:59 Intake Total 3251.5 Output Total 1850 1900 475 Balance 1401.5 -1900 -475 Intake: IV 500 Vancomycin 1,750 mg In 500 Sodium Chloride 0.9% 500 ml 500 ml @ 167 mls/hr IVPB Q16H ANNIE Rx#: [id number] Intake, IV Titration 1051.5 Amount Sodium Chloride 4Meq/ml 1051.5 Vial 60 meq Potassium Chloride 30 meq Calcium Gluconate 1 gm Magnesium Sulfate gm 1.25 gm Sodium Phosphate 27 mmol In Amino Acids 5 %/Dextrose 20 % 1,000 ml @ 85 mls/hr IV .BY DURATION ANNIE Rx#: [id number] TPN/PPN 1700 Mvi, Adult No.4 with Vit 1700 K 10 ml Trace (Conc-1Ml/ Dose) 1 ml Sodium Chloride 4Meq/ml Vial 60 meq Potassium Chloride 30 meq Calcium Gluconate 1 gm Magnesium Sulfate gm 1 .25 gm Sodium Phosphate 27 mmol In Amino Acids 5 %/Dextrose 20 % 1,000 ml @ 85 mls/hr IV .BY DURATION [facility] Rx#: [id number] Output: Urine 1500 1200 475 Stool 350 700 Other: Voiding Method Indwelling Catheter Indwelling Catheter Indwelling Catheter ABP, PAP, CO, CI - Last Documented Arterial Blood Pressure 134/50 - Exam GENERAL DESCRIPTION: Middle-age male intubated with a trach RESPIRATORY SYSTEM: Unlabored breathing , coarse breath sounds bilaterally HEART: S1 S2 regular rate and rhythm , ABDOMEN: Soft , no tenderness EXTREMITIES: Swelling to the leg no redness - Labs CBC & Chem 7: 07/13/24 04:41 07/14/24 05:42 Labs: Abnormal Lab Results - Last 24 Hours (Table) 07/14/24 Range/Units 05:42 Carbon Dioxide 32 H (22-30) mmol/L BUN 21 H (9-20) mg/dL Creatinine 0.30 L (0.66-1.25) mg/dL Glucose 141 H (74-99) mg/dL Microbiology - Last 24 Hours (Table) 07/04/24 08:45 Fungal Culture - Preliminary Bronchoalviolar Lavage - Left 07/04/24 08:45 Acid Fast Bacilli Smear - Preliminary Bronchoalviolar Lavage - Left Acid Fast Bacilli Culture - Preliminary Assessment and Plan (1) Abnormal chest x-ray Current Visit: Yes Status: Acute Code(s): R93.89 - ABNORMAL FINDINGS ON DX IMAGING OF OTH BODY STRUCTURES SNOMED Code(s): 419234136 (2) Penicillin allergy Current Visit: Yes Status: Acute Code(s): Z88.0 - ALLERGY STATUS TO PENICILLIN SNOMED Code(s): 18848713 (3) Pneumonia Current Visit: No Status: Acute Code(s): J18.9 - PNEUMONIA, UNSPECIFIED ORGANISM SNOMED Code(s): 058156624 (4) Sepsis Current Visit: No Status: Acute Code(s): A41.9 - SEPSIS, UNSPECIFIED OR GANISM SNOMED Code(s): 14614622 Plan: 1patient did have worsening of his respiratory status requiring intubation and transferred to ICU also spiked a fever And did have a heart rate in the 90s meeting criteria for SIRS/sepsis source likely left lower lobe pneumonia concerning for possible gram-negative in this patient who did have Zosyn al lergies that would limit the number of antibiotics safe to use. 2patient is status post bronchoscopy lavage as well as sputum culture which grew multidrug-resistant Pseudomonas aeruginosa resistant to meropenem sensitive to Zosyn however the patient is allergic to Zosyn 3patient did have resolution of his fever, white count has been normal BAL cultures did grow Pseudomonas as well 4patient has received adequate amount therapy for his pneumonia and there is no need for antibiotic therapy at the time of discharge discussed with admitting team Dictation was produced using [employer] dictation software. please excuse any grammatical, word or spelling errors. Time with Patient: Less than 30
[2024-07-14] MEDS: LORazepam 1 MG TAB PO PRN (21:02)
[2024-07-15 06:49] LABS: African American GFR (CKD) >90 (>60 ml/min/1.73 sqM); Anion Gap 7 mmol/L; Blood Urea Nitrogen 21 mg/dL (9-20); Calcium 9.2 mg/dL (8.4-10.2); Carbon Dioxide 34 mmol/L (22-30); Chloride 98 mmol/L (98-107); Glucose 145 mg/dL (74-99); Magnesium 1.9 mg/dL (1.6-2.3); Non-African American GFR(CKD) >90 (>60 ml/min/1.73 sqM); Phosphorus 3.9 mg/dL (2.5-4.5); Potassium 3.9 mmol/L (3.5-5.1); Sodium 139 mmol/L (137-145)
[2024-07-15] MEDS: MAGNESIUM SULFATE-D5W PMX 1 GM in DEXTROSE/WATER 1 100ML.BAG IVPB ONE (09:20)
[2024-07-15] MEDS: POTASSIUM CHLORIDE 10 MEQ in WATER FOR INJECTION 1 100ML.BAG IVPB SCH (09:20)
--- NOTE | 2024-07-15 11:34 | P.PN ---
Subjective Progress Note Date: 07/15/24 Principal diagnosis: Acute on chronic hypoxic respiratory failure, multifactorial On 07/10/2024, the patient is awake and alert and communicating. He was able to trach collor 28% FIO2 over the past 24 hours. Started on feeding. Chest x-ray findings are essentially unchanged. Doing well. No significant respiratory secretions. Most recent bronchial cultures are still showing Pseudomonas aeruginosa and the patient remains on a combination of ceftazidime IV Bactrim and vancomycin. The patient remains hemodynamically stable. The patient has no specific complaints. The patient has increased anxiety and the patient is currently on Ativan 1 mg every 6 hours IV. Respiratory medications remain unchanged. Remains on Lovenox therapeutic dose 90 mg subcu every 12 hours. Remains on TPN for nutritional support which is running at a rate of 65 cc an hour. Fluid balance is - 1.8 L over the past 24 hours and the patient is currently on Lasix 20 mg IV every 12 hours. Blood work from today noted 07/11/2024, the patient remains on a trach collar and the patient on 28% trach collar for the past 48 hours. Denies any difficulties. Awake and alert and communicating. Continues to be on TPN rate of 22 cc an hour. Continues to be in place 20 mg and 5012 hours. Fluid balance is negative in the order of 1.1 L over the past 24 hours. Calm and comfortable. Anxiety is well treated and the patient is currently on buspirone and Ativan. BUN 17 with a creatinine of 0.4. Sodium levels at 138 and potassium level is at 3.9. Bronchodilators are still being administered. No significant respiratory secretions. Patient looks to be quite comfortable. Remains on ceftazidime avibactam regarding ongoing pseudomonal pneumonia/infection. Remains on vancomycin. ID is on the case. Remains on Lovenox 90 mg SQ every 12 hours. On 07/12/2024, the patient remains on a 28% trach collar and the patient has been on a trach collar for the past 72 hours without any major difficulties. No significant tracheal secretion. The patient is able to utilize his speaking valve. Remains on TPN at rate of 82 cc an hour. Output from the gastrointestinal fistula is in order of 600 cc over 8 hours. The patient is in a negative fluid balance of 796 cc over the past 24 hours and the patient continues to receive Lasix 20 mg IV every 12 hours. Sodium levels at 137, potassium is at 3.3, chlorides 101 with a bicarb of 27, BUN is 19 with a creatinine of 0.35. No CBCs available from today. Remains on the same antibiotic coverage including combination of ceftazidime avibactam and vancomycin. The patient has a triple-lumen catheter in his left subclavian that can be essentially removed. He also has a double-lumen PICC. Awake and alert and communicating. Denies having any major respiratory distress. Chronically debilitated. Anxiety levels are adequate. Patient was seen today on 07/13/2024, remains in the ICU, he is now on trach collar 28% FiO2 has been on the trach collar for 3 days. Patient remains on vancomycin day #12, is also on Avycaz day #19. He is on Lasix 20 mg IV push every 12 hours patient seems to be very comfortable not in distress, hence I plan to transfer the patient out of the ICU today medical floor/3 S. WBC count today 6.3 hemoglobin 10.2 electrolytes are normal renal profile is normal chest x-ray on 07/10/2024 showed left lower lobe atelectasis/infiltrate. Seen today on 07/14/2024, remains in the ICU as an overflow, remains on trach collar at 20% FiO2, patient has been on trach collar now for 4 days. Remains on antibiotics, I believe the patient received significant amount of antibiotics including vancomycin day #13 and Avycaz day #20. I believe he could come off and on antibiotics, being followed by infectious disease, we are in the process of arranging for the [facility]. Patient finally agreed to go to [facility] instead of going home. Labs today showed relatively normal CBC hemoglobin is 10.2 electrolytes are normal BUN is 21 creatinine 0.30 Seen today on 07/15/2024, patient continues to do fairly well, remains on trach collar, he was accepted at [facility], and the plan is to get that done today/transfer today if possible the only delay is getting his TPN delivered by pharmacy to [facility]. Electrolytes are normal renal profile is normal patient is now off antibiotics. Objective - Vital Signs Vital signs: Vital Signs Temp 97.7 F 07/15/24 04:00 Pulse 92 07/15/24 08:15 Resp 14 07/15/24 08:00 BP 121/62 07/15/24 04:00 Pulse Ox 100 07/15/24 08:00 FiO2 28 07/15/24 07:53 Intake & Output 07/14/24 07/15/24 07/15/24 18:59 06:59 18:59 Intake Total 1487.5 695 300 Output Total 1725 1550 675 Balance -237.5 -855 -375 Weight 92 kg Intake: IV 425 595 Mvi, Adult No.4 with Vit 425 595 K 10 ml Trace (Conc-1Ml/ Dose) 1 ml Sodium Chloride 4Meq/ml Vial 60 meq Potassium Chloride 30 meq Calcium Gluconate 1 gm Magnesium Sulfate gm 1 .25 gm Sodium Phosphate 27 mmol In Amino Acids 5 %/Dextrose 20 % 1,000 ml @ 85 mls/hr IV .BY DURATION [facility] Rx#: [id number] Intake, IV Titration 1062.5 300 Amount Magnesium Sulfate-D5w Pmx 100 1 gm In Dextrose/Water 1 100ml.bag @ 100 mls/hr IVPB ONCE ONE Rx#: [id number] Mvi, Adult No.4 with Vit 1062.5 K 10 ml Trace (Conc-1Ml/ Dose) 1 ml Sodium Chloride 4Meq/ml Vial 60 meq Potassium Chloride 30 meq Calcium Gluconate 1 gm Magnesium Sulfate gm 1 .25 gm Sodium Phosphate 27 mmol In Amino Acids 5 %/Dextrose 20 % 1,000 ml @ 85 mls/hr IV .BY DURATION [facility] Rx#: [id number] Potassium Chloride 10 meq 200 In Water For Injection 1 100ml.bag @ 100 mls/hr IVPB Q1H [facility] Rx#: [id number] Oral 100 Output: Urine 1275 1550 675 Stool 450 Other: Voiding Method Indwelling Catheter Indwelling Catheter Indwelling Catheter ABP, PAP, CO, CI - Last Documented Arterial Blood Pressure 134/50 - Exam GENERAL: A 48-year-old male patient, resting in bed, on 28% trach collar Head exam was generally normal. There was no scleral icterus or corneal arcus. Mucous membranes were moist. HEENT: No scleral icterus. No conjunctival pallor. Normocephalic, atraumatic. Tracheostomy tube seems to be intact CARDIOVASCULAR: S1 and S2 present. No murmurs, rubs, or gallops. PULMONARY: Diminished breath sounds were bilaterally. No crackles rhonchi or wheezes ABDOMEN: Soft, nontender, nondistended, normoactive bowel sounds. No palpable organomegaly. Functioning ileostomy. 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 EXTREMITIES: No cyanosis, clubbing, or pedal edema. Right-sided BKA noted. NEUROLOGICAL: Profound weakness in all 4 extremities, weak cough, extensive muscle atrophy in all 4 extremities. Patient is awake SKIN: No rashes. No open wounds. 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 Previous history of recurrent ventilator dependent respiratory failure, secondary to pneumonia and mucous plugging. The patient has undergone previous bronchoscopies and cultures from bronchoscopy on 12/31/2023 was positive for MRSA and subsequent bronchoscopy on 01/03/2024 was positive for Klebsiella pn eumoniae and Bella glabrata. Most recent sputum analysis from 02/26/2024 and 03/17/2024 was positive for Pseudomonas aeruginosa and the patient was treated successfully. Status post bronchoscopy and BAL of left lower lobe on 06/22/2024, with improvement noted in his left lower lobe pneumonia cultures/BAL from the bronchoscopy are negative although sputum earlier was positive for gram-negative bacilli. Previous episodes of sepsis secondary to pneumonia Crohn's disease, with previous complication of bowel perforation s/p colectomy and diverting ileostomy. The patient also has had previous history of abdominal wall bleeding there is currently inactive and stable. The patient has a high output ileostomy TPN for nutritional support Tracheobronchomalacia History of DVT, on therapeutic dose of Lovenox CVA/TIA, with residual left-sided weakness Right BKA History of asystole/cardiac arrest in 2021 Hypotension requiring norepinephrine, possible sepsis and septic shock. Recommendation: Continue patient on trach collar Antibiotics have been stopped Continue bronchodilators Continue nutritional support/TPN GI DVT prophylaxis Will clear for discharge to [facility] if cleared by other consultants Time with Patient: Less than 30
[2024-07-15] MEDS: ONDANSETRON 4 MG/2 ML VIAL IVP PRN (14:56)
--- NOTE | 2024-07-15 16:57 | P.PN ---
Subjective Progress Note Date: 07/15/24 Principal diagnosis: Reason for follow-up pneumonia Patient is a 49-year-old male with a past medical history significant for chron's disease in this patient who did have multiple surgeries and complication as far as abdominal surgeries did have history of recurrent pn eumonia vent dependent respiratory failure currently on a trach collar CVA TIA patient has been brought into the hospital concerning for chest pain patient also have abnormal chest x-ray concern for possible pneumonia prompting this consultation. On today's evaluation that is 07/15/2024,the patient remains to be afebrile, patient is on trach collar and denies any shortness of breath no chest pain or any worsening cough.Patient denies having any nausea or vomiting, no abdominal pain and no new symptoms. Patient white count 6.31 as of 07/13/2024 his creatinine 0.40 Objective - Vital Signs Vital signs: Vital Signs Temp 97.7 F 07/15/24 04:00 Pulse 95 07/15/24 11:59 Resp 14 07/15/24 08:00 BP 121/62 07/15/24 04:00 Pulse Ox 100 07/15/24 08:00 FiO2 28 07/15/24 07:53 Intake & Output 07/14/24 07/15/24 07/15/24 18:59 06:59 18:59 Intake Total 1487.5 1746.5 300 Output Total 1725 1550 1225 Balance -237.5 196.5 -925 Weight 92 kg Intake: IV 425 595 Mvi, Adult No.4 with Vit 425 595 K 10 ml Trace (Conc-1Ml/ Dose) 1 ml Sodium Chloride 4Meq/ml Vial 60 meq Potassium Chloride 30 meq Calcium Gluconate 1 gm Magnesium Sulfate gm 1 .25 gm Sodium Phosphate 27 mmol In Amino Acids 5 %/Dextrose 20 % 1,000 ml @ 85 mls/hr IV .BY DURATION [facility] Rx#: [id number] Intake, IV Titration 1062.5 1051.5 300 Amount Magnesium Sulfate-D5w Pmx 100 1 gm In Dextrose/Water 1 100ml.bag @ 100 mls/hr IVPB ONCE ONE Rx#: [id number] Mvi, Adult No.4 with Vit 1062.5 K 10 ml Trace (Conc-1Ml/ Dose) 1 ml Sodium Chloride 4Meq/ml Vial 60 meq Potassium Chloride 30 meq Calcium Gluconate 1 gm Magnesium Sulfate gm 1 .25 gm Sodium Phosphate 27 mmol In Amino Acids 5 %/Dextrose 20 % 1,000 ml @ 85 mls/hr IV .BY DURATION [facility] Rx#: [id number] Potassium Chloride 10 meq 200 In Water For Injection 1 100ml.bag @ 100 mls/hr IVPB Q1H [facility] Rx#: [id number] Sodium Chloride 4Meq/ml 1051.5 Vial 60 meq Potassium Chloride 30 meq Calcium Gluconate 1 gm Magnesium Sulfate gm 1.25 gm Sodium Phosphate 27 mmol In Amino Acids 5 %/Dextrose 20 % 1,000 ml @ 85 mls/hr IV .BY DURATION [facility] Rx#: [id number] Oral 100 Output: Urine 1275 1550 1225 Stool 450 Other: Voiding Method Indwelling Catheter Indwelling Catheter Indwelling Catheter ABP, PAP, CO, CI - Last Documented Arterial Blood Pressure 134/50 - Exam GENERAL DESCRIPTION: Middle-age male intubated with a trach RESPIRATORY SYSTEM: Unlabored breathing , coarse breath sounds bilaterally HEART: S1 S2 regular rate and rhythm , ABDOMEN: Soft , no tenderness EXTREMITIES: Swelling to the leg no redness - Labs CBC & Chem 7: 07/13/24 04:41 07/15/24 05:30 Labs: Abnormal Lab Results - Last 24 Hours (Table) 07/15/24 Range/Units 05:30 Carbon Dioxide 34 H (22-30) mmol/L BUN 21 H (9-20) mg/dL Creatinine 0.40 L (0.66-1.25) mg/dL Glucose 145 H (74-99) mg/dL Assessment and Plan (1) Abnormal chest x-ray Current Visit: Yes Status: Acute Code(s): R93.89 - ABNORMAL FINDINGS ON DX IMAGING OF OTH BODY STRUCTURES SNOMED Code(s): 923175373 (2) Penicillin allergy Current Visit: Yes Status: Acute Code(s): Z88.0 - ALLERGY STATUS TO PENICILLIN SNOMED Code(s): 27585193 (3) Pneumonia Current Visit: No Status: Acute Code(s): J18.9 - PNEUMONIA, UNSPECIFIED ORGANISM SNOMED Code(s): 977529024 (4) Sepsis Current Visit: No Status: Acute Code(s): A41.9 - SEPSIS, UNSPECIFIED ORGANISM SNOMED Code(s): 98156875 Plan: 1patient did have worsening of his respiratory status requiring intubation and transferred to ICU also spiked a fever And did have a heart rate in the 90s meeting criteria for SIRS/sepsis source likely left lower lobe pneumonia concerning for possible gram-negative in this patient who did have Zosyn allergies that would limit the number of antibiotics safe to use. 2patient is status post bronchoscopy lavage as well as sputum culture which grew multidrug-resistant Pseudomonas aeruginosa resistant to meropenem sensitive to Zosyn however the patient is allergic to Zosyn 3patient did have resolution of his fever, white count has been normal BAL cultures did grow Pseudomonas as well 4patient has received adequate antibiotic therapy for his pneumonia and currently being monitored closely off antibiotic therapy and seem to be doing well over the last 48 hours Dictation was produced using [employer] dictation software. please excuse any grammatical, word or spelling errors. Time with Patient: Less than 30
[2024-07-16 05:25] LABS: African American GFR (CKD) >90 (>60 ml/min/1.73 sqM); Anion Gap 8 mmol/L; Blood Urea Nitrogen 25 mg/dL (9-20); Calcium 9.1 mg/dL (8.4-10.2); Carbon Dioxide 33 mmol/L (22-30); Chloride 96 mmol/L (98-107); Glucose 142 mg/dL (74-99); Magnesium 2.1 mg/dL (1.6-2.3); Non-African American GFR(CKD) >90 (>60 ml/min/1.73 sqM); Phosphorus 3.8 mg/dL (2.5-4.5); Potassium 3.8 mmol/L (3.5-5.1); Sodium 137 mmol/L (137-145)
[2024-07-16 08:44] VITALS: TEMP 98
[2024-07-16] MEDS ORDERED: Potassium Replacement Protocol 1 EACH MISC MISCELLANE PRN (09:06)
[2024-07-16 10:00] VITALS: BMI 30.6
--- NOTE | 2024-07-16 10:01 | P.PN ---
Subjective Progress Note Date: 07/15/24 Patient admitted for bilateral cramping due to pneumonia gram-negative organism is not identified yet patient had Pseudomonas in the past patient underwent bronchoscopy patient remains on mechanical ventilation broad-spectrum antibiotics patient has a tracheostomy in place. Patient underwent bronchoalveolar lavage. 06/26/2024 Patient is evaluated in the ICU. Remains on the mechanical ventilator with FiO2 of 40%. Sputum culture reveals pseudomonas aeruginosa, corynebacterium striatum group. He remains on antibiotics with IV ceftazidime/Avibactam. TPN infusing. Labs today reveal white blood cell count 4.72, hgb 7.6, sodium 135, potassium 4.0, BUN 13, creatinine 0.39. Magnesium 1.9. Triglycerides of 183.00. 06/27/2024 Patient is evaluated in the intensive care unit. He is currently on the trach collar. Awake alert and oriented. Chest xray today shows left lower lobe atelectasis or pneumonia. Per mother at the bedside he was only home [facility] day prior to returning to the hospital. He will likely need to return to [facility] on DC. Remains on TPN. White blood cell count 5.07, hgb 7.3, sodium 134, BUN 11, creatinine 0.34. 06/28/2024 Patient is eval today in intensive care unit. He is complaining of pain in the right ear manual examination does reveal some erythema of the canal and eardrum. We will add eardrops and monitor for improvement in symptoms. Patient is awake alert oriented he has tolerated trach collar. Chest x-ray today reveals a developing left lower lobe infiltrate with a small effusion which may be present. He continues on IV meropenem for positive sputum and bronchial washings of Pseudomonas aeruginosa and corynebacterium striatum group. Labs today reveal a white blood cell count of 5.55, hemoglobin 7.4, sodium 135, BUN of 11 creatinine 0.40. 06/29/2024 Patient is evaluated in the intensive care unit he is currently downgraded and pending a bed on the medical floor. Patient is ready for discharge and did discuss with the patient that he needs to follow-up with his family and I will also talk with his family regarding discharge planning if he is able to discharge home versus subacute rehab versus LTAC. Patient is adamant that that [facility] not [facility]. Due to his complex medical needs including PEG tube, TPN, his tracheostomy, ileostomy, and IV antibiotics he may not be a candidate for subacute rehabilitation but referrals were placed by social work. He does state that his right ear feels better after being initiated on antibiotic eardrops and they will be continued at this time. His labs today reveal a white blood cell count of 5.50, hemoglobin 7.6, sodium level of 135, BUN of 9 creatinine 0.37 and magnesium level of 1.8. 06/30/2024 Patient is evaluated in follow-up in the medical floor. He has no acute complaints at this time. He does report again mild improvement in his right ear pain and he continues with the eardrops. Had a long discussion with patient's son over and over the phone regarding discharge planning. Alan is apprehensive about allowing child to return home due to his complex medical needs and somebody having to stay up with him overnight for suctioning and trach care. Open would like [facility] to [facility] for at least another month or so until his other brother comes home from college. Will need to follow-up with patient tomorrow regarding this and awaiting other referrals for any other excepting facility as patient really does not want to return to the [facility]. 07/01/2024 Patient evaluated today resting in bed. Per nursing he was lethargic overnight but seems improved today. Patient is currently a bed at a subacute rehab [facility] and social work following. He remains on IV ceftazidime/avibactam. Chest x-ray today Reveals stable chest with left-sided pleural effusion. There is opacification of the right lung base and left lung base. Patient is on TPN. Patient is afebrile, heart rate 53, blood pressure 144/67, 100% on trach collar. 07/02/2024 Patient evaluated today in follow up. No acute complaints at this time. Still pending accepting rehab facility. Remains on the IV ceftazidime/avibactam. 07/03/2024 Patient evaluated today in follow up was downgraded to the general medical floor. Report the right ear pain and fullness is better. He continues on IV ceftazidime/Avibactam and IV vancomycin for the pseudomonas in the sputum. No accepting facility so far. He may need to remain hospitalized while he finishes course of antibiotics. He is tolerating the trach collar. 07/04. Patient seen and examined. Patient was a teamed this morning for decrease responsiveness, was found to be hypoxemic, was transferred back to ICU and was placed on ventilator. Patient is currently on breathing treatments. Hemoglobin this morning was 6.8, 1 unit of packed red blood cells ordered. Patient has been started on Levophed 07/05. Patient seen and examined. Patient is currently off sedation, opening eyes. Patient received 2 units of packed red blood cells in total since yesterday, hemoglobin improved to8.3, WBC 6.03, platelet count 229, sodium 137, potassium 3.8, BUN 18, creatinine 0.34, glucose 143, phosphorus 1.8. Critical care planning to trial CPAP 07/06/2024 Patient evaluated today in the intensive care unit. He is awake alert and responsive, he is able to answer simple questions. Under bronchoscopy on 07/04 with preliminary cultures showing pseudomonas aeruginosa; corynebacterium striatum group. Chest xray shows small bilateral pleural effusions. Remains on IV antibiotics. He is on the mechanical ventilator. Hemoglobin better today at 8.5. Sodium of 135, potassium 3.4. 07/07/2024 Patient remains in the intensive care unit. He is awake alert and responsive he is able to talk with a tracheostomy in place. His repeat cultures from the bronchoscopy are showing Pseudomonas aeruginosa and Corynebacterium stratum group. He continues on antibiotics in the form of IV ADK as as well as IV vancomycin. Patient remains off pressor support at this time. ID is following closely. Chest x-ray today reveals a bilateral trace pleural effusion. Patient underwent flexible bronchoscopy today and there was no evidence of mucous plugging or thick secretions. 10 cc of respiratory secretions were suctioned out. Patient had no evidence of tracheal stenosis during the procedure. Has been difficult to wean from the vent. 07/08/2024 Patient is evaluated today in follow up in the intensive care unit. His chest xray today reveals mild pulmonary vascular congestion. He remains on the ventilator currently with FiO2 and the most recent bronchoscopy cultures are showing preliminary pseudomonas aeruginosa. He continues on IV avycaz/ IV vancomycin. Ileostomy change was performed today with son at the bedside. Labs today reveal white blood cell count 5.74, hgb 9.1, sodium 135, potassium 4.3, BUN 13, creatinine 0.29, magnesium 1.9. 07/09/2024 Patient is eval today in follow-up tensive care unit. He remains on a mechanical ventilator with plans for a trach collar trial today. Patient overall feels better and is slightly clinically improved. His repeat sputum culture revealed Pseudomonas aeruginosa. The corynebacterium striatum group is not evident. Chest CT reveals basilar infiltrates and small effusions consistent with pneumonia. Mild splenomegaly. there is moderate elevation of the right hemidiaphragm. He is on day 6 out of 10 of the IV AV cast. His white blood cell count today is 5.21 hemoglobin 10.0, sodium of 135 BUN of 14 creatinine 0.36. Patient's mother was at the bedside and all questions were answered. 07/10/2024 Patient is seen in follow-up currently sitting up in bed eating with mother at the bedside feeding. Patient continues on trach collar 08/12 and reports to feeling well. Patient continues on IV antibiotics as sputum cultures continue to reveal Pseudomonas with pulmonary following as well. Social work/case management following looking into possible ECF as patient has no remaining days left at LTAC. Labs are stable at this time and will follow-up on repeat labs. Replace electrolytes per protocol and being monitored closely as patient remains on TPN. 07/11. Patient seen and examined. Currently on oxygen via trach mask. Continues to be on TPN and Lovenox. Currently on antibiotics Avycaz, vancomycin,. Patient also getting IV Lasix 20 mg Q12 07/12. Patient seen and examined. Continues to be on oxygen via trach mask. Patient is alert, follows commands, answers questions.Labs done this morning showed sodium 137, potassium 3.3, BUN 19, creatinine 0.35 07/13. Patient seen and examined. Labs reviewed showing WBCs 0.31, hemoglobin 10.2, platelet count 210, sodium 138, potassium 3.8, BUN 18, creatinine 0.34.Continue IV antibiotics. Currently on anticoagulation with Lovenox. Continues to be on TPN. 07/15/2024 Patient evaluated today in the intensive care unit. Remains on IV lasix 20 Q12 hour. Completed course of IV antibiotics. No acute complaints. Pending DC to [facility] once TPN is received. REVIEW OF SYSTEMS: Cardio vascular: denied any chest pain, palpitations Gastrointestinal: denied any nausea, vomiting, diarrhea Pulmonary: Denied any shortness of breath cough PHYSICAL EXAMINATION: GENERAL: The patient is alert HEENT: Pupils are round and equally reacting to light. Trach collar seen CARDIOVASCULAR: S1 and S2 present. No murmurs, rubs, or gallops. PULMONARY: Diminished breath sounds at the bases, no wheezing or crackles. ABDOMEN: Soft, nontender, nondistended, normoactive bowel sounds. Ostomy seen MUSCULOSKELETAL: No joint swelling or deformity. EXTREMITIES: No cyanosis, atrophy of lower extremities seen NEUROLOGICAL: Gross neurological examination did not reveal any focal deficits. SKIN: No rashes. Assessment and plan - Bilateral gram-negative pneumonia possibility of aspiration - Acute respiratory failure requiring mechanical ventilation ,bronchoscopy 06/22/2024 with cultures positive for Pseudomonas aeruginosa and corynebacterium striatum. Repeat bronchoscopy with BAL 07/04/2024 and 07/07/2024 - Crohn's disease with ileostomy in the past patient is presently on TPN - Right sided otitis media - Tracheobronchomalacia - CVA TIA - History of DVT DVT prophylaxis GI prophylaxis Full Code Monitor vital signs Monitor CBC Monitor CMP Continue telemetry monitoring Continue oxygen supplementation via trach bronchoscopy 06/22/2024 with cultures positive for Pseudomonas aeruginosa and corynebacterium striatum. Repeat bronchoscopy with BAL 07/04/2024 and 07/07/24 Continue Lovenox Continue on Avycaz and vancomycin Continue TPN and lipids Continue DuoNeb inhalations Pulmonology following ID following Dictation was produced using [employer] dictation software. please excuse any grammatical, word or spelling errors. The impression and plan of care has been dictated by Coral Medina, Nurse Practitioner as directed. Dr. Mo MD I have performed a history and physical examination and medical decision making of this patient, discussed the same with the dictator, and agree with the dictators assessment and plan as written, documented as a scribe. Based on total visit time, I have performed more than 50% of this visit. Objective - Vital Signs Vital signs: Vital Signs Temp 97.7 F 07/15/24 04:00 Pulse 95 07/15/24 11:59 Resp 14 07/15/24 08:00 BP 121/62 07/15/24 04:00 Pulse Ox 100 07/15/24 08:00 FiO2 28 07/15/24 07:53 Intake & Output 04/07/15/24 07/15/24 18:59 06:59 18:59 Intake Total 1487.5 1746.5 300 Output Total 1725 1550 1225 Balance -237.5 196.5 -925 Weight 92 kg Intake: IV 425 595 Mvi, Adult No.4 with Vit 425 595 K 10 ml Trace (Conc-1Ml/ Dose) 1 ml Sodium Chloride 4Meq/ml Vial 60 meq Potassium Chloride 30 meq Calcium Gluconate 1 gm Magnesium Sulfate gm 1 .25 gm Sodium Phosphate 27 mmol In Amino Acids 5 %/Dextrose 20 % 1,000 ml @ 85 mls/hr IV .BY DURATION [facility] Rx#: [id number] Intake, IV Titration 1062.5 1051.5 300 Amount Magnesium Sulfate-D5w Pmx 100 1 gm In Dextrose/Water 1 100ml.bag @ 100 mls/hr IVPB ONCE ONE Rx#: [id number] Mvi, Adult No.4 with Vit 1062.5 K 10 ml Trace (Conc-1Ml/ Dose) 1 ml Sodium Chloride 4Meq/ml Vial 60 meq Potassium Chloride 30 meq Calcium Gluconate 1 gm Magnesium Sulfate gm 1 .25 gm Sodium Phosphate 27 mmol In Amino Acids 5 %/Dextrose 20 % 1,000 ml @ 85 mls/hr IV .BY DURATION [facility] Rx#: [id number] Potassium Chloride 10 meq 200 In Water For Injection 1 100ml.bag @ 100 mls/hr IVPB Q1H [facility] Rx#: [id number] Sodium Chloride 4Meq/ml 1051.5 Vial 60 meq Potassium Chloride 30 meq Calcium Gluconate 1 gm Magnesium Sulfate gm 1.25 gm Sodium Phosphate 27 mmol In Amino Acids 5 %/Dextrose 20 % 1,000 ml @ 85 mls/hr IV .BY DURATION [facility] Rx#: [id number] Oral 100 Output: Urine 1275 1550 1225 Stool 450 Other: Voiding Method Indwelling Catheter Indwelling Catheter Indwelling Catheter ABP, PAP, CO, CI - Last Documented Arterial Blood Pressure 134/50 - Labs CBC & Chem 7: 07/13/24 04:41 07/16/24 04:02 Labs: Abnormal Lab Results - Last 24 Hours (Table) 07/15/24 Range/Units 05:30 Carbon Dioxide 34 H (22-30) mmol/L BUN 21 H (9-20) mg/dL Creatinine 0.40 L (0.66-1.25) mg/dL Glucose 145 H (74-99) mg/dL Assessment and Plan Time with Patient: Less than 30
--- NOTE | 2024-07-16 10:07 | P.DS ---
Providers Date of admission: 06/22/24 06:38 Attending physician: Marciano Monahan MD Consults: 06/19/24 16:46 Consult Physician Routine Consulting Provider: Estela Holt Consult Reason/Comments: pneumonia Do you want consulting provider notified?: Yes Consult Physician Routine Consulting Provider: Chanel Uriostegui Consult Reason/Comments: sepsis Do you want consulting provider notified?: Yes Primary care physician: [facility] Hospital Course: Final Diagnosis -Bilateral gram-negative pneumonia possibility of aspiration - Acute respiratory failure requiring mechanical ventilation ,bronchoscopy 06/22/2024 with cultures positive for Pseudomonas aeruginosa and corynebacterium striatum. 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 He is tolerating the trach collar. Has completed antibiotics. He will continue on TPN. Hospital Course Patient admitted from home due to issues with the tracheostomy and suctioning. Patient recently had prolonged hospital stay and has a trach in place. He has had pseudomonas pneumonia and history of tracheal stenosis and issues coming off the ventilator. He was admitted to the ICU and placed on the vent. ID and pulmonary on consult for the pneumonia. Patient had multiple bronchoscopy with lavage this admission and most recent cultures showing pseudomonas. He completed course of antibiotic therapy while in the hospital. He has ileostomy in place and on TPN chronically. He has been tolerating the trach collar on 5L. He is awake alert and oriented x 4. Has no acute complaints and lungs are clear. Most recent labs showing white blood cell count 6.31, hgb 10.2, sodium 137, potassium 3.8, BUN 25, creatinine 0.33, glucose 142. Triglycerides 140.0. [facility] has accepted the patient for DC and they have received the TPN he will be dcing today. Please see medication reconciliation for a list of current medications. Thank you for allowing us to participate in the care of this patient. The impression and plan of care has been dictated by Coral Medina, Nurse Practitioner as directed. Dr. Mo MD I have performed a history and physical examination and medical decision making of this patient, discussed the same with the dictator, and agree with the dictators assessment and plan as written, documented as a scribe. Based on total visit time, I have performed more than 50% of this visit. Patient Condition at Discharge: Fair Plan - Discharge Summary Discharge Rx Participant: Yes New Discharge Prescriptions: New Furosemide [Lasix] 20 mg PO DAILY 30 Days #30 tab busPIRone HCl [Buspar] 15 mg PO BID 30 Days #60 tab Continue Pantoprazole [Protonix] 40 mg PO BID Folic Acid 1 mg PO DAILY Albuterol Nebulized [Ventolin Nebulized] 2.5 mg INHALATION RT-Q6H PRN PRN Reason: Shortness Of Breath Thiamine [Vitamin B-1] 100 mg PO DAILY Cholestyramine (with Sugar) [Cholestyramine Packet] 4 gm PO BID Enoxaparin [Lovenox] 90 mg SQ Q12H Loperamide HCl [Imodium A-D] 4 mg PO TID Discharge Medication List Pantoprazole [Protonix] 40 mg PO BID 07/07/22 [History] Albuterol Nebulized [Ventolin Nebulized] 2.5 mg INHALATION RT-Q6H PRN 06/19/24 [History] Cholestyramine (with Sugar) [Cholestyramine Packet] 4 gm PO BID 06/19/24 [History] Enoxaparin [Lovenox] 90 mg SQ Q12H 06/19/24 [History] Folic Acid 1 mg PO DAILY 06/19/24 [History] Loperamide HCl [Imodium A-D] 4 mg PO TID 06/19/24 [History] Thiamine [Vitamin B-1] 100 mg PO DAILY 06/19/24 [History] Furosemide [Lasix] 20 mg PO DAILY 30 Days #30 tab 07/14/24 [Rx] busPIRone HCl [Buspar] 15 mg PO BID 30 Days #60 tab 07/14/24 [Rx] Follow up Appointment(s)/Referral(s): Estrella Ho MD [STAFF PHYSICIAN] - 1 Week Chong Ivey DO [Primary Care Provider] - 1-2 days Chanel Uriostegui MD [STAFF PHYSICIAN] - 1 Week Ambulatory/Diagnostic Orders: Basic Metabolic Panel [LAB.AMB] Time Frame: 3 Days, Location: None Selected Complete Blood Count w/diff [LAB.AMB] Location: None Selected Activity/Diet/Wound Care/Special Instructions: Convate Yasmin Wound Pouch [id number] x 160mm (drain on the side) [facility]: A4357 - Bed Drainage Night Bag (High Output wide tubing) 2 L Change pouch weekly or as needed for leakage, neena Og) for guidance on first change if needed. [employer]vetec: Paste: [id number] Powder [id number] Rin Skin Barrier [id number] Remover [id number] Coloplast: [facility] A5121 Elastic Barrier Strip XL- 6.7in ([id number]) [facility]: A4362 Elastic Barrier Stips ([id number]) Discharge Disposition: TRANSFER TO SNF/ECF
[2024-07-16 11:16] VITALS: BP 102/59; RESP 15
[2024-07-16 11:28] VITALS: PULSE 86
--- NOTE | 2024-07-16 12:29 | P.PN ---
Subjective Progress Note Date: 07/16/24 Principal diagnosis: Acute on chronic hypoxic respiratory failure, multifactorial On 07/10/2024, the patient is awake and alert and communicating. He was able to trach collor 28% FIO2 over the past 24 hours. Started on feeding. Chest x-ray findings are essentially unchanged. Doing well. No significant respiratory secretions. Most recent bronchial cultures are still showing Pseudomonas aeruginosa and the patient remains on a combination of ceftazidime IV Bactrim and vancomycin. The patient remains hemodynamically stable. The patient has no specific complaints. The patient has increased anxiety and the patient is currently on Ativan 1 mg every 6 hours IV. Respiratory medications remain unchanged. Remains on Lovenox therapeutic dose 90 mg subcu every 12 hours. Remains on TPN for nutritional support which is running at a rate of 65 cc an hour. Fluid balance is - 1.8 L over the past 24 hours and the patient is currently on Lasix 20 mg IV every 12 hours. Blood work from today noted 07/11/2024, the patient remains on a trach collar and the patient on 28% trach collar for the past 48 hours. Denies any difficulties. Awake and alert and communicating. Continues to be on TPN rate of 22 cc an hour. Continues to be in place 20 mg and 5012 hours. Fluid balance is negative in the order of 1.1 L over the past 24 hours. Calm and comfortable. Anxiety is well treated and the patient is currently on buspirone and Ativan. BUN 17 with a creatinine of 0.4. Sodium levels at 138 and potassium level is at 3.9. Bronchodilators are still being administered. No significant respiratory secretions. Patient looks to be quite comfortable. Remains on ceftazidime avibactam regarding ongoing pseudomonal pneumonia/infection. Remains on vancomycin. ID is on the case. Remains on Lovenox 90 mg SQ every 12 hours. On 07/12/2024, the patient remains on a 28% trach collar and the patient has been on a trach collar for the past 72 hours without any major difficulties. No significant tracheal secretion. The patient is able to utilize his speaking valve. Remains on TPN at rate of 82 cc an hour. Output from the gastrointestinal fistula is in order of 600 cc over 8 hours. The patient is in a negative fluid balance of 796 cc over the past 24 hours and the patient continues to receive Lasix 20 mg IV every 12 hours. Sodium levels at 137, potassium is at 3.3, chlorides 101 with a bicarb of 27, BUN is 19 with a creatinine of 0.35. No CBCs available from today. Remains on the same antibiotic coverage including combination of ceftazidime avibactam and vancomycin. The patient has a triple-lumen catheter in his left subclavian that can be essentially removed. He also has a double-lumen PICC. Awake and alert and communicating. Denies having any major respiratory distress. Chronically debilitated. Anxiety levels are adequate. Patient was seen today on 07/13/2024, remains in the ICU, he is now on trach collar 28% FiO2 has been on the trach collar for 3 days. Patient remains on vancomycin day #12, is also on Avycaz day #19. He is on Lasix 20 mg IV push every 12 hours patient seems to be very comfortable not in distress, hence I plan to transfer the patient out of the ICU today medical floor/3 S. WBC count today 6.3 hemoglobin 10.2 electrolytes are normal renal profile is normal chest x-ray on 07/10/2024 showed left lower lobe atelectasis/infiltrate. Seen today on 07/14/2024, remains in the ICU as an overflow, remains on trach collar at 20% FiO2, patient has been on trach collar now for 4 days. Remains on antibiotics, I believe the patient received significant amount of antibiotics including vancomycin day #13 and Avycaz day #20. I believe he could come off and on antibiotics, being followed by infectious disease, we are in the process of arranging for the patient to possibly transfer to alf. Patient finally agreed to go to alf instead of going home. Labs today showed relatively normal CBC hemoglobin is 10.2 electrolytes are normal BUN is 21 creatinine 0.30 Seen today on 07/15/2024, patient continues to do fairly well, remains on trach collar, he was accepted at [facility], and the plan is to get that done today/transfer today if possible the only delay is getting his TPN delivered by pharmacy to alf. Electrolytes are normal renal profile is normal patient is now off antibiotics. Seen today on 08/04/2024, basically no change, patient is relatively stable, in spite of his multiple comorbidities. Still working on transferring the patient to ECF, this may happen today. There was a delay in his TPN delivery to ECF yesterday. Labs today were all reviewed and seem to be unremarkable. Objective - Vital Signs Vital signs: Vital Signs Temp 98 F 07/16/24 08:00 Pulse 86 07/16/24 11:26 Resp 15 07/16/24 10:00 BP 102/59 07/16/24 10:00 Pulse Ox 96 07/16/24 10:00 FiO2 28 07/16/24 10:00 Intake & Output 07/15/24 07/16/24 07/16/24 18:59 06:59 18:59 Intake Total 1362.5 960 820 Output Total 1850 875 980 Balance -487.5 85 -160 Weight 91.4 kg 91.4 kg Intake: IV 340 Mvi, Adult No.4 with Vit 340 K 10 ml Trace (Conc-1Ml/ Dose) 1 ml Sodium Chloride 4Meq/ml Vial 60 meq Potassium Chloride 30 meq Calcium Gluconate 1 gm Magnesium Sulfate gm 1 .25 gm Sodium Phosphate 27 mmol In Amino Acids 5 %/Dextrose 20 % 1,000 ml @ 85 mls/hr IV .BY DURATION [facility] Rx#: [id number] Intake, IV Titration 1362.5 Amount Magnesium Sulfate-D5w Pmx 100 1 gm In Dextrose/Water 1 100ml.bag @ 100 mls/hr IVPB ONCE ONE Rx#: [id number] Mvi, Adult No.4 with Vit 1062.5 K 10 ml Trace (Conc-1Ml/ Dose) 1 ml Sodium Chloride 4Meq/ml Vial 60 meq Potassium Chloride 30 meq Calcium Gluconate 1 gm Magnesium Sulfate gm 1 .25 gm Sodium Phosphate 27 mmol In Amino Acids 5 %/Dextrose 20 % 1,000 ml @ 85 mls/hr IV .BY DURATION [facility] Rx#: [id number] Potassium Chloride 10 meq 200 In Water For Injection 1 100ml.bag @ 100 mls/hr IVPB Q1H [facility] Rx#: [id number] Oral 960 480 Output: Urine 1350 325 750 Stool 500 550 230 Other: Voiding Method Indwelling Catheter Indwelling Catheter Indwelling Catheter # Voids 1 # Bowel Movements 1 ABP, PAP, CO, CI - Last Documented Arterial Blood Pressure 134/50 - Exam GENERAL: A 48-year-old male patient, resting in bed, on 28% trach collar Head exam was generally normal. There was no scleral icterus or corneal arcus. Mucous membranes were moist. HEENT: No scleral icterus. No conjunctival pallor. Normocephalic, atraumatic. Tracheostomy tube seems to be intact CARDIOVASCULAR: S1 and S2 present. No murmurs, rubs, or gallops. PULMONARY: Diminished breath sounds were bilaterally. No crackles rhonchi or wheezes ABDOMEN: Soft, nontender, nondistended, normoactive bowel sounds. No palpable organomegaly. Functioning ileostomy. 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 EXTREMITIES: No cyanosis, clubbing, or pedal edema. Right-sided BKA noted. NEUROLOGICAL: Profound weakness in all 4 extremities, weak cough, extensive muscle atrophy in all 4 extremities. Patient is awake SKIN: No rashes. No open wounds. 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 Previous history of recurrent ventilator dependent respiratory failure, secondary to pneumonia and mucous plugging. The patient has undergone previous bronchoscopies and cultures from bronchoscopy on 12/31/2023 was positive for MRSA and subsequent bronchoscopy on 01/03/2024 was positive for Klebsiella pneumoniae and Bella glabrata. Most recent sputum analysis from 02/26/2024 and 03/17/2024 was positive for Pseudomonas aeruginosa and the patient was treated successfully. Status post bronchoscopy and BAL of left lower lobe on 06/22/2024, with improvement noted in his left lower lobe pneumonia cultures/BAL from the bronchoscopy are negative although sputum earlier was positive for gram-negative bacilli. Previous episodes of sepsis secondary to pneumonia Crohn's disease, with previous complication of bowel perforation s/p colectomy and diverting ileostomy. The patient also has had previous history of abdominal wall bleeding there is currently inactive and stable. The patient has a high output ileostomy TPN for nutritional support Tracheobronchomalacia History of DVT, on therapeutic dose of Lovenox CVA/TIA, with residual left-sided weakness Right BKA History of asystole/cardiac arrest in 2021 Hypotension requiring norepinephrine, possible sepsis and septic shock. Recommendation: Continue trach collar Continue bronchodilators Continue nutritional support/TPN GI DVT prophylaxis Cleared for discharge to ECF today. Time with Patient: Less than 30 (1111)
[2024-07-16] MEDS: 1: MVI, ADULT NO.4 WITH VIT K 10 ML, TRACE (CONC-1ML/DOSE) 1 ML, SODIUM CHLORIDE 4MEQ/ML IV SCH (12:40)
--- NOTE | 2024-07-16 14:03 | P.PN ---
Subjective Progress Note Date: 07/16/24 Principal diagnosis: Reason for follow-up pneumonia Patient is a 49-year-old male with a past medical history significant for chron's disease in this patient who did have multiple surgeries and complication as far as abdominal surgeries did have history of recurrent pn eumonia vent dependent respiratory failure currently on a trach collar CVA TIA patient has been brought into the hospital concerning for chest pain patient also have abnormal chest x-ray concern for possible pneumonia prompting this consultation. On today's evaluation that is 07/16/2024, the patient continues to be afebrile, the patient is on r trach collar and breathing comfortably, the Pt denies having any chest pain or any worsening cough no vomiting or any changes reported. Patient did have a creatinine 0.33 Objective - Vital Signs Vital signs: Vital Signs Temp 98 F 07/16/24 08:00 Pulse 86 07/16/24 11:26 Resp 15 07/16/24 10:00 BP 102/59 07/16/24 10:00 Pulse Ox 96 07/16/24 10:00 FiO2 28 07/16/24 10:00 Intake & Output 07/15/24 07/16/24 07/16/24 18:59 06:59 18:59 Intake Total 1362.5 960 820 Output Total 1850 875 980 Balance -487.5 85 -160 Weight 91.4 kg 91.4 kg Intake: IV 340 Mvi, Adult No.4 with Vit 340 K 10 ml Trace (Conc-1Ml/ Dose) 1 ml Sodium Chloride 4Meq/ml Vial 60 meq Potassium Chloride 30 meq Calcium Gluconate 1 gm Magnesium Sulfate gm 1 .25 gm Sodium Phosphate 27 mmol In Amino Acids 5 %/Dextrose 20 % 1,000 ml @ 85 mls/hr IV .BY DURATION [facility] Rx#: [id number] Intake, IV Titration 1362.5 Amount Magnesium Sulfate-D5w Pmx 100 1 gm In Dextrose/Water 1 100ml.bag @ 100 mls/hr IVPB ONCE ONE Rx#: [id number] Mvi, Adult No.4 with Vit 1062.5 K 10 ml Trace (Conc-1Ml/ Dose) 1 ml Sodium Chloride 4Meq/ml Vial 60 meq Potassium Chloride 30 meq Calcium Gluconate 1 gm Magnesium Sulfate gm 1 .25 gm Sodium Phosphate 27 mmol In Amino Acids 5 %/Dextrose 20 % 1,000 ml @ 85 mls/hr IV .BY DURATION [facility] Rx#: [id number] Potassium Chloride 10 meq 200 In Water For Injection 1 100ml.bag @ 100 mls/hr IVPB Q1H [facility] Rx#: [id number] Oral 960 480 Output: Urine 1350 325 750 Stool 500 550 230 Other: Voiding Method Indwelling Catheter Indwelling Catheter Indwelling Catheter # Voids 1 # Bowel Movements 1 ABP, PAP, CO, CI - Last Documented Arterial Blood Pressure 134/50 - Exam GENERAL DESCRIPTION: Middle-age male intubated with a trach RESPIRATORY SYSTEM: Unlabored breathing , coarse breath sounds bilaterally HEART: S1 S2 regular rate and rhythm , ABDOMEN: Soft , no tenderness EXTREMITIES: Swelling to the leg no redness - Labs CBC & Chem 7: 07/13/24 04:41 07/16/24 04:02 Labs: Abnormal Lab Results - Last 24 Hours (Table) 07/16/24 Range/Units 04:02 Chloride 96 L (98-107) mmol/L Carbon Dioxide 33 H (22-30) mmol/L BUN 25 H (9-20) mg/dL Creatinine 0.33 L (0.66-1.25) mg/dL Glucose 142 H (74-99) mg/dL Assessment and Plan (1) Abnormal chest x-ray Status: Acute Code(s): R93.89 - ABNORMAL FINDINGS ON DX IMAGING OF OTH BODY STRUCTURES SNOMED Code(s): 696233852 (2) Penicillin allergy Status: Acute Code(s): Z88.0 - ALLERGY STATUS TO PENICILLIN SNOMED Code(s): 18772535 (3) Pneumonia Status: Acute Code(s): J18.9 - PNEUMONIA, UNSPECIFIED ORGANISM SNOMED Code(s): 132147506 (4) Sepsis Status: Acute Code(s): A41.9 - SEPSIS, UNSPECIFIED ORGANISM SNOMED Code(s): 59334396 Plan: 1patient did have worsening of his respiratory status requiring intubation and transferred to ICU also spiked a fever And did have a heart rate in the 90s meeting criteria for SIRS/sepsis source likely left lower lobe pneumonia concerning for possible gram-negative in this patient who did have Zosyn allerg ies that would limit the number of antibiotics safe to use. 2patient is status post bronchoscopy lavage as well as sputum culture which grew multidrug-resistant Pseudomonas aeruginosa resistant to meropenem sensitive to Zosyn however the patient is allergic to Zosyn 3patient did have resolution of his fever, white count has been normal BAL cultures did grow Pseudomonas as well 4patient has received adequate antibiotic therapy for his pneumonia and there is no need for antibiotic on discharge care discussed with the mother at the bedside Dictation was produced using nuvoTVation software. please excuse any grammatical, word or spelling errors. Time with Patient: Less than 30
== END 2024-07-16 13:42 | DRG 853 ==
LOC: EC 08:24 → 6NMEDSUR 12:33 → 3SCARD 14:31 → 4SSUR 06-20 15:17 → 2SICU 06-22 03:23 → OBSVTOIN 06-22 06:38 → 3SCARD 06-29 15:50 → 4SSUR 07-02 23:29 → 2SICU 07-04 05:26
PROVIDERS: ADMIT Internal Medicine; ATTEND Internal Medicine
PROC: 0B21XFZ Change Tracheostomy Device in Trachea, External Approach (ICD-10-PCS; 2024-06-22)
PROC: 3E0336Z Introduction of Nutritional Substance into Peripheral Vein, Percutaneous Approach (ICD-10-PCS; 2024-06-22)
PROC: 3E033XZ Introduction of Vasopressor into Peripheral Vein, Percutaneous Approach (ICD-10-PCS; 2024-06-22)
PROC: 5A1955Z Respiratory Ventilation, Greater than 96 Consecutive Hours (ICD-10-PCS; 2024-06-22)
PROC: 0B9J8ZX Drainage of Left Lower Lung Lobe, Via Natural or Artificial Opening Endoscopic, Diagnostic (ICD-10-PCS; 2024-06-23)
PROC: 0B9H8ZX Drainage of Lung Lingula, Via Natural or Artificial Opening Endoscopic, Diagnostic (ICD-10-PCS; 2024-06-23)
PROC: 30233N1 Transfusion of Nonautologous Red Blood Cells into Peripheral Vein, Percutaneous Approach (ICD-10-PCS; 2024-06-23)
PROC: 0WCQ8ZZ Extirpation of Matter from Respiratory Tract, Via Natural or Artificial Opening Endoscopic (ICD-10-PCS; principal; 2024-07-04)
PROC: 0B9M8ZZ Drainage of Bilateral Lungs, Via Natural or Artificial Opening Endoscopic (ICD-10-PCS; 2024-07-07)
DX: A41.52 Sepsis due to Pseudomonas (principal); J15.1 Pneumonia due to Pseudomonas; J96.21 Acute and chronic respiratory failure with hypoxia; J96.22 Acute and chronic respiratory failure with hypercapnia; R65.21 Severe sepsis with septic shock; J69.0 Pneumonitis due to inhalation of food and vomit; Z99.11 Dependence on respirator [ventilator] status; D84.81 Immunodeficiency due to conditions classified elsewhere; J90 Pleural effusion, not elsewhere classified; I69.354 Hemiplegia and hemiparesis following cerebral infarction affecting left non-dominant side; E66.9 Obesity, unspecified; D64.9 Anemia, unspecified; K50.90 Crohn's disease, unspecified, without complications; Z16.24 Resistance to multiple antibiotics; Z16.13 Resistance to carbapenem; Z89.511 Acquired absence of right leg below knee; Z93.2 Ileostomy status; Z93.3 Colostomy status; J39.8 Other specified diseases of upper respiratory tract; J98.09 Other diseases of bronchus, not elsewhere classified; E83.39 Other disorders of phosphorus metabolism; J98.4 Other disorders of lung; H66.91 Otitis media, unspecified, right ear; R16.1 Splenomegaly, not elsewhere classified; I51.7 Cardiomegaly; R53.81 Other malaise; M62.562 Muscle wasting and atrophy, not elsewhere classified, left lower leg; M62.561 Muscle wasting and atrophy, not elsewhere classified, right lower leg; M62.462 Contracture of muscle, left lower leg; M62.461 Contracture of muscle, right lower leg; F41.9 Anxiety disorder, unspecified; B96.89 Other specified bacterial agents as the cause of diseases classified elsewhere; Z68.30 Body mass index [BMI] 30.0-30.9, adult; Z88.0 Allergy status to penicillin; Z86.74 Personal history of sudden cardiac arrest; Z79.899 Other long term (current) drug therapy; Z86.718 Personal history of other venous thrombosis and embolism; Z86.14 Personal history of Methicillin resistant Staphylococcus aureus infection; Z87.891 Personal history of nicotine dependence; Z87.01 Personal history of pneumonia (recurrent); Z74.01 Bed confinement status; Z86.19 Personal history of other infectious and parasitic diseases; Z88.1 Allergy status to other antibiotic agents; Z90.49 Acquired absence of other specified parts of digestive tract
CPT/HCPCS: 36415; 36600; 71045; 71250; 80048; 80053; 80061; 80202; 82330; 82565; 82805; 83735; 83880; 84100; 84132; 84145; 84478; 84484; 85025; 85027; 85610; 85730; 86140; 86850; 86900; 86901; 86920; 87040; 87070; 87077; 87102; 87116; 87186; 87205; 87206; 87324; 87496; 87498; 87502; 87529; 87634; 87635; 87636; 87798; 88108; 88305; 89050; 93005; 94002; 94003; 94640; 94760; 96372; 96374; 96376; 99285

== ENCOUNTER 2024-07-16 19:28 | Observation (INO) | payer MEDICARE, OTHER ==
--- NOTE | 2024-07-16 20:24 | XR ---
EXAMINATION TYPE: XR chest 1V portable DATE OF EXAM: 07/16/2024 8:11 PM COMPARISON: 07/10/2024 CLINICAL INDICATION: Male, 49 years old with history of Short of breath, TECHNIQUE: Single frontal view of the chest is obtained. FINDINGS: Enterostomy tube is unchanged in position. Increased density right medial lung base may re flect atelectasis or developing infiltrate. The cardiac silhouette size is within normal limits. Th e osseous structures are intact. IMPRESSION: Increased density right medial lung base may reflect atelectasis or developing infiltrat e. [facility], , 07/16/2024 8:22 PM
[2024-07-16] MEDS: ALTEPLASE 2 MG VIAL (CATHFLO) IV STA ×2 (20:34→20:35)
--- NOTE | 2024-07-16 20:56 | ED ---
General Adult HPI - General Chief complaint: Shortness of Breath Stated complaint: Respiratory Issues Time Seen by Provider: 07/16/24 19:40 Source: patient, EMS, RN notes reviewed, old records reviewed Mode of arrival: EMS Limitations: physical limitation - History of Present Illness Initial comments: This is a 49-year-old male who comes to the emergency department with a past medical history not significant. Patient has had a stroke in the remote past he also has had some damage done to his right arm such that it is contracted and has had an amputated right leg below the knee. Patient also has had Crohn's and had surgery on his abdomen and was given an ostomy but that area was infected and now he has an open wound on his abdomen. Patient has a trach and was recently admitted to the hospital for pneumonia and was in the ICU. Patient was discharged yesterday to a custodial and the custodial sent him back today because he stated that he was too much for them to care for. Patient has no complaints today. - Related Data Home Medications Medication Instructions Recorded Confirmed Pantoprazole [Protonix] 40 mg PO BID 07/07/22 06/19/24 Albuterol Nebulized [Ventolin 2.5 mg INHALATION RT-Q6H PRN 06/19/24 06/19/24 Nebulized] Cholestyramine (with Sugar) 4 gm PO BID 06/19/24 06/19/24 [Cholestyramine Packet] Enoxaparin [Lovenox] 90 mg SQ Q12H 06/19/24 06/19/24 Folic Acid 1 mg PO DAILY 06/19/24 06/19/24 Loperamide HCl [Imodium A-D] 4 mg PO TID 06/19/24 06/19/24 Thiamine [Vitamin B-1] 100 mg PO DAILY 06/19/24 06/19/24 Previous Rx's Medication Instructions Recorded Furosemide [Lasix] 20 mg PO DAILY 30 Days #30 tab 07/14/24 busPIRone HCl [Buspar] 15 mg PO BID 30 Days #60 tab 07/14/24 Allergies Allergy/AdvReac Type Severity Reaction Status Date / Time piperacillin [From Zosyn] AdvReac Rash/Hives Verified 07/16/24 19:37 tazobactam [From Zosyn] AdvReac Rash/Hives Verified 07/16/24 19:37 Review of Systems ROS Statement: Those systems with pertinent positive or pertinent negative responses have been documented in the HPI. ROS Other: All systems not noted in ROS Statement are negative. Past Medical History Past Medical History: CVA/TIA, Deep Vein Thrombosis (DVT) Additional Past Medical History / Comment(s): Progressing left upper thigh pain and swelling and left leg weakness. 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 Crohns. Ostomy Bag placed in 09/2021. History of Any Multi-Drug Resistant Organisms: MRSA, Other MDRO Date of last positivie culture/infection: 07/07/24-Other MDRO; 12/14/23-MRSA MDRO Source:: Other MDRO - sputum, BAL; MRSA- nasal Past Surgical History: Cholecystectomy, Orthopedic Surgery Additional Past Surgical History / Comment(s): Arm surgery, right leg below knee amputation, ostomy (2021) Past Anesthesia/Blood Transfusion Reactions: No Reported Reaction Additional Past Anesthesia/Blood Transfusion Reaction / Comment(s): recalled from previous admission Past Psychological History: No Psychological Hx Reported Smoking Status: Former smoker Past Alcohol Use History: None Reported Past Drug Use History: None Reported - Past Family History Father Additional Family Medical History / Comment(s): DAD IN HIS TWENTIES - CAUSE UNKNOWN. Mother Family Medical History: Diabetes Mellitus Brother(s) Family Medical History: Cancer Additional Family Medical History / Comment(s): Kidney cancer as a baby. General Exam - General Exam Comments Initial Comments: GENERAL: Patient is well-developed and well-nourished. Patient is nontoxic and well- hydrated and is in no acute distress. ENT: Neck is soft and supple. No significant lymphadenopathy is noted. Oropharynx is clear. Moist mucous membranes. Neck has full range of motion without eliciting any pain. EYES: The sclera were anicteric and conjunctiva were pink and moist. Extraocular movements were intact and pupils were equal round and reactive to light. Eyelids were unremarkable. PULMONARY: Unlabored respirations. Good breath sounds bilaterally. No audible rales rhonchi or wheezing was noted. CARDIOVASCULAR: There is a regular rate and rhythm without any murmurs gallops or rubs. ABDOMEN: Patient has an open abdominal wound SKIN: Skin is clear with no lesions or rashes and otherwise unremarkable. NEUROLOGIC: Patient is alert and oriented x3. MUSCULOSKELETAL: There is a contracted right arm he has a BKA on the right and patient's left arm and leg are paralyzed PSYCHIATRIC: Normal psychiatric evaluation. Limitations: physical limitation Course Vital Signs 07/16/24 07/16/24 19:29 20:15 Pulse Rate 102 H Respiratory 22 Rate Blood Pressure 135/86 O2 Sat by Pulse 96 Oximetry Fraction of 32 Inspired Oxygen (FIO2) Medical Decision Making - Medical Decision Making EKG shows a sinus tachycardia at 103 bpm W[place] 154 QRS is 84 QT interval 311 QTc is 371. Patient's EKG shows no ST segment elevation or depression. Disposition Clinical Impression: Increased tracheal secretions Disposition: ADMITTED IP TO THIS HOSP Referrals: Kailee Rose DO [Primary Care Provider] - 1-2 days Time of Disposition: 20:56
[2024-07-16] MEDS: SODIUM CHLORIDE 0.9% 1,000 ML IV ONE (21:26)
[2024-07-16] MEDS: HYDROmorphone 0.5 MG/0.5 ML SYRINGE IVP STA (21:26)
[2024-07-16 21:34] LABS: Basophils # (A) 0.06 10*3/uL (0.00-0.10); Basophils % (A) 0.7 %; Eosinophils # (A) 0.26 10*3/uL (0.04-0.35); Eosinophils % (A) 2.8 %; HCT 38.5 % (39.6-50.0); HGB 11.7 g/dL (13.0-17.0); Lymphocytes # (A) 2.12 10*3/uL (0.90-5.00); MCH 25.3 pg (27.0-32.0); MCHC 30.4 g/dL (32.0-37.0); MCV 83.2 fL (80.0-97.0); Mean Platelet Volume 11.9 fL (9.5-12.2); Monocytes # (A) 0.72 10*3/uL (0.20-1.00); Monocytes % (A) 7.8 %; Neutrophils # (A) 6.05 10*3/uL (1.80-7.70); Neutrophils % (A) 65.5 %; Platelet Count 210 10*3/uL (140-440); RBC 4.63 10*6/uL (4.40-5.60); RDW 16.4 % (11.5-14.5); WBC 9.23 10*3/uL (4.50-10.00)
[2024-07-16 21:47] LABS: ALT 36 U/L (4-49); AST 44 U/L (17-59); African American GFR (CKD) >90 (>60 ml/min/1.73 sqM); Albumin 4.1 g/dL (3.5-5.0); Alkaline Phosphatase 128 U/L (38-126); Anion Gap 10 mmol/L; Blood Urea Nitrogen 26 mg/dL (9-20); Calcium 9.3 mg/dL (8.4-10.2); Carbon Dioxide 32 mmol/L (22-30); Chloride 95 mmol/L (98-107); Glucose 77 mg/dL (74-99); Non-African American GFR(CKD) >90 (>60 ml/min/1.73 sqM); Potassium 4.2 mmol/L (3.5-5.1); Sodium 137 mmol/L (137-145); Total Bilirubin 1.5 mg/dL (0.2-1.3); Total Protein 9.3 g/dL (6.3-8.2)
[2024-07-17] MEDS: hydrOXYzine HCL 25 MG TAB PO PRN (02:18)
[2024-07-17] MEDS: HYDROcodone/APAP 5-325MG 1 EACH TAB PO PRN ×2 (02:18→17:47)
[2024-07-17 06:22] LABS: Glucose,Whole Blood 97 mg/dL (70-110)
[2024-07-17 08:47] VITALS: TEMP 98
--- NOTE | 2024-07-17 10:16 | P.HPIM ---
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 Patient also with history of stroke, DVT and chronic medical debility with contractures of his hands bilaterally. Patient has had prolonged hospital stay secondary to a Pseudomonas pneumonia and difficulty weaning off the ventilator. He was tolerating trach collar secretions had been improved and he completed a course of IV antibiotics and was discharged to [facility] for rehabilitation. Patient was just discharged yesterday evening. He was brought back in from the [facility] around 7:40 PM yesterday evening with reports that he was too much care for the senior care staff. He is not a candidate for LTAC as he has been stable on the trach collar and he has no more select specialty days left this calendar year. Patient has no acute complaints he is not having any chest pain or shortness of breath. No nausea vomiting. Ileostomy is functioning well. PEG tube is functioning well a nd he is tolerating his TPN. He is saturating 98% on the trach collar. His blood work reveals a white blood cell count 9.23, hemoglobin Bipin 0.7, sodium 137, potassium 4.2, BUN of 26 creatinine 0.34. Total bili 1.5 alk phos of 128. Glucose of 97. He is afebrile, blood pressure 139/86. REVIEW OF SYSTEMS: CONSTITUTIONAL: No fever, no malaise, no fatigue. HEENT: No recent visual problems or hearing problems. Denied any sore throat. CARDIOVASCULAR: No chest pain, orthopnea, PND, no palpitations, no syncope. PULMONARY: No shortness of breath, no cough, no hemoptysis. GASTROINTESTINAL: No diarrhea, no nausea, no vomiting, no abdominal pain. NEUROLOGICAL: No headaches, no weakness, no numbness. HEMATOLOGICAL: Denies any bleeding or petechiae. GENITOURINARY: Denies any burning micturition, frequency, or urgency. MUSCULOSKELETAL/RHEUMATOLOGICAL: Denies any joint pain, swelling, or any muscle pain. ENDOCRINE: Denies any polyuria or polydipsia. The rest of the 14-point review of systems is negative. PHYSICAL EXAMINATION: GENERAL: The patient is alert and oriented x3, not in any acute distress. Well developed, well nourished. HEENT: Pupils are round and equally reacting to light. EOMI. No scleral icterus. No conjunctival pallor. Normocephalic, atraumatic. No pharyngeal erythema. No thyromegaly. CARDIOVASCULAR: S1 and S2 present. No murmurs, rubs, or gallops. PULMONARY: Chest is clear to auscultation, no wheezing or crackles. ABDOMEN: Soft, nontender, nondistended, normoactive bowel sounds. No palpable organomegaly. Ileostomy in place and functioning with liquid stools. MUSCULOSKELETAL: No joint swelling or deformity. EXTREMITIES: No cyanosis, clubbing, or pedal edema. NEUROLOGICAL: Gross neurological examination did not reveal any focal deficits. Contractures of hands bilaterally. SKIN: No rashes. Assessment and Plan - Crohn's disease with ileostomy in the past patient is presently on TPN - Right sided otitis media resolved - Tracheobronchomalacia - CVA TIA - History of DVT - Chronic medical debility with contractures of hands bilaterally GI prophylaxis DVT prophylaxis Plan Resume home medications Continue routine trach care with suctioning PRN Continue enteral feedings through PEG tube Ileostomy functioning Social work on for discharge planning and plan for return to [facility] no acute needs for hospitalization at this time The impression and plan of care has been dictated by Coral Medina Nurse Practitioner as directed. Dr. Mo MD I have performed a history and physical examination and medical decision making of this patient, discussed the same with the dictator, and agree with the dictators assessment and plan as written, documented as a scribe. Based on total visit time, I have performed more than 50% of this visit. Past Medical History Past Medical History: CVA/TIA, Deep Vein Thrombosis (DVT) Additional Past Medical History / Comment(s): Progressing left upper thigh pain and swelling and left leg weakness. 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 Crohns. Ostomy Bag placed in 09/2021. History of Any Multi-Drug Resistant Organisms: MRSA, Other MDRO Date of last positivie culture/infection: 07/07/24-Other MDRO; 12/14/23-MRSA MDRO Source:: Other MDRO - sputum, BAL; MRSA- nasal Past Surgical History: Cholecystectomy, Orthopedic Surgery Additional Past Surgical History / Comment(s): Arm surgery, right leg below knee amputation, ostomy (2021), bronch 06/2024 Past Anesthesia/Blood Transfusion Reactions: No Reported Reaction Additional Past Anesthesia/Blood Transfusion Reaction / Comment(s): recalled from previous admission Past Psychological History: No Psychological Hx Reported Additional Psychological History / Comment(s): recalled from previous admission Smoking Status: Former smoker Past Alcohol Use History: None Reported Additional Past Alcohol Use History / Comment(s): QUIT SMOKING IN 2017, STARTED SMOKING AT AGE 16, 1PPD. Past Drug Use History: None Reported Additional Drug Use History / Comment(s): recalled from previous admission - Past Family History Father Additional Family Medical History / Comment(s): DAD IN HIS TWENTIES - CAUSE UNKNOWN. Mother Family Medical History: Diabetes Mellitus Brother(s) Family Medical History: Cancer Additional Family Medical History / Comment(s): Kidney cancer as a baby. Medications and Allergies Home Medications Medication Instructions Recorded Confirmed Type Pantoprazole [Protonix] 40 mg PO BID 07/07/22 07/17/24 History Albuterol Nebulized [Ventolin 2.5 mg INHALATION RT-Q6H PRN 06/19/24 07/17/24 History Nebulized] Cholestyramine (with Sugar) 4 gm PO BID 06/19/24 07/17/24 History [Cholestyramine Packet] Enoxaparin [Lovenox] 90 mg SQ Q12H 06/19/24 07/17/24 History Folic Acid 1 mg PO DAILY 06/19/24 07/17/24 History Loperamide HCl [Imodium A-D] 4 mg PO TID 06/19/24 07/17/24 History Thiamine [Vitamin B-1] 100 mg PO DAILY 06/19/24 07/17/24 History Furosemide [Lasix] 20 mg PO DAILY 30 Days #30 tab 07/14/24 07/17/24 Rx busPIRone HCl [Buspar] 15 mg PO BID 30 Days #60 tab 07/14/24 07/17/24 Rx HYDROcodone/APAP 5-325MG [[place] 1 tab PO Q6H PRN 07/17/24 07/17/24 History 5-325] Allergies Allergy/AdvReac Type Severity Reaction Status Date / Time piperacillin [From Zosyn] Allergy Rash/Hives Verified 07/17/24 08:34 tazobactam [From Zosyn] Allergy Rash/Hives Verified 07/17/24 08:34 Physical Exam Vitals: Vital Signs Temp Pulse Pulse Resp BP BP Pulse Ox 07/17/24 09:27 98 07/17/24 08:46 98.0 F 95 17 139/86 99 07/17/24 03:52 98.4 F 88 21 141/78 98 07/17/24 01:15 95 18 144/75 95 07/17/24 01:05 96 07/17/24 00:15 98.5 F 101 H 16 127/80 96 07/16/24 21:22 102 H 24 112/75 99 07/16/24 20:15 07/16/24 19:29 98.1 F 102 H 22 135/86 96 FiO2 07/17/24 09:27 35 07/17/24 08:46 35 07/17/24 03:52 35 07/17/24 01:15 35 07/17/24 01:05 35 07/17/24 00:15 07/16/24 21:22 07/16/24 20:15 32 07/16/24 19:29 Intake and Output 07/16/24 07/17/24 07/17/24 22:59 06:59 14:59 Intake Total 0 Output Total 1000 Balance -1000 Intake: Oral 0 Output: Urine 400 Stool 600 Other: Voiding Method Indwelling Catheter External Catheter Weight 90.718 kg 86.5 kg Results CBC & Chem 7: 07/16/24 21:20 07/16/24 21:20 Labs: Abnormal Lab Results - Last 24 Hours (Table) 07/16/24 07/16/24 Range/Units 21:20 21:20 Hgb 11.7 L (13.0-17.0) g/dL Hct 38.5 L (39.6-50.0) % MCH 25.3 L (27.0-32.0) pg MCHC 30.4 L (32.0-37.0) g/dL Chloride 95 L (98-107) mmol/L Carbon Dioxide 32 H (22-30) mmol/L BUN 26 H (9-20) mg/dL Creatinine 0.34 L (0.66-1.25) mg/dL Total Bilirubin 1.5 H (0.2-1.3) mg/dL Alkaline Phosphatase 128 H (38-126) U/L Total Protein 9.3 H (6.3-8.2) g/dL Thrombosis Risk Factor Assmnt - Choose All That Apply Any of the Below Risk Factors Present?: Yes Each Factor Represents 1 point: Age 41-60 years, Obesity (BMI >25) Thrombosis Risk Factor Assessment Total Risk Factor Score: 2 Thrombosis Risk Factor Assessment Level: Low Risk Assessment and Plan Time with Patient: Less than 30
[2024-07-17 11:13] LABS: Glucose,Whole Blood 96 mg/dL (70-110)
[2024-07-17 11:41] LABS: African American GFR (CKD) >90 (>60 ml/min/1.73 sqM); Anion Gap 11 mmol/L; Blood Urea Nitrogen 24 mg/dL (9-20); Calcium 9.4 mg/dL (8.4-10.2); Carbon Dioxide 30 mmol/L (22-30); Chloride 97 mmol/L (98-107); Glucose 89 mg/dL (74-99); Magnesium 1.7 mg/dL (1.6-2.3); Non-African American GFR(CKD) >90 (>60 ml/min/1.73 sqM); Phosphorus 2.9 mg/dL (2.5-4.5); Potassium 4.4 mmol/L (3.5-5.1); Sodium 138 mmol/L (137-145)
[2024-07-17] MEDS: MAGNESIUM SULFATE-D5W PMX 1 GM in DEXTROSE/WATER 1 100ML.BAG IVPB ONE (12:08)
[2024-07-17] MEDS ORDERED: 1: MVI, ADULT NO.4 WITH VIT K 10 ML, TRACE (CONC-1ML/DOSE) 1 ML, SODIUM CHLORIDE 4MEQ/ML IV SCH ×2 (12:30)
[2024-07-17 13:27] VITALS: BMI 28.1
[2024-07-17] MEDS: 1: MVI, ADULT NO.4 WITH VIT K 10 ML, TRACE (CONC-1ML/DOSE) 1 ML, SODIUM CHLORIDE 4MEQ/ML IV SCH (13:29)
[2024-07-17] MEDS: FAT EMULSION 20% 250 ML in EMPTY BAG 1 BAG IV SCH (13:35)
[2024-07-17] MEDS ORDERED: ALBUTEROL NEBULIZED 2.5 MG/3 ML INHALATION PRN (13:42)
[2024-07-17] MEDS: HYDROmorphone 1 MG/ML 1 ML SYRINGE IVP STA (13:58)
--- NOTE | 2024-07-17 15:17 | P.CNPUL ---
History of Present Illness Consult date: 07/17/24 Requesting physician: Phuc Soliz Reason for consult: abnormal CXR/CT Chief complaint: Shortness of breath History of present illness: This is a 49-year-old male patient with a known history of recurrent ventilatory dependent respiratory failure secondary to pneumonias and mucous plugging, Crohn's disease, status post colectomy and diverting ileostomy, tracheobronchomalacia, DVT, CVA/TIA, right below the knee amputation, history of cardiac arrest in 2021. He was recently treated for Pseudomonas aeruginosa and corynebacterium stratum noted on bronchoscopy wash from 07/04/2024. He was on and off the ventilator throughout his stay wean admission on 06/19/2024 to discharge on 07/16/2024 to [facility]. Discharge planning had worked hard on finding a bed for him. All of his hospital stay information was reviewed with their liaison who accepted the patient. He has used up all his long[facility] only kept him maybe a few hours and sent him back here to the emergency room stating they are unable to take care of him. He is seen today in consultation on the selective care unit. He is awake and alert in no acute distress. He is maintaining good O2 saturations in the 90s on 28% FiO2 via trach collar. Chest x-ray continues to show the right medial lung base atelectasis. White count 9.2. Hemoglobin 11.7. Platelets 210. Sodium 138. Potassium 4.4. Bicarb 30. BUN 24. Creatinine 0.33. Glucose 89. Currently TPN at 85 mL/h. Lipids every 72 hours. His usual medications have been reordered. He remains on Lovenox for anticoagulation. Review of Systems REVIEW OF SYSTEMS: CONSTITUTIONAL: Denies any recent significant weight loss or weight gain. EYES: Denies change in vision. EARS, NOSE, MOUTH, THROAT: Denies headaches, denies sore throat. CARDIOVASCULAR: Denies chest pain, palpitations or syncopal episodes. RESPIRATORY: Positive for occasional shortness of breath, no cough, congestion or hemoptysis. GASTROINTESTINAL: Denies change in appetite, denies abdominal pain GENITOURINARY: Denies hematuria, denies infections. MUSKULOSKELETAL: Denies pain, denies swelling. INTEGUMENTARY: Denies rash, denies eczema. NEUROLOGICAL: Denies recent memory loss, no recent seizure activity. PSYCHIATRIC: Denies anxiety, denies depression. HEMATOLOGIC/LYMPHATIC: Denies anemia, denies enlarged lymph nodes. Past Medical History Past Medical History: CVA/TIA, Deep Vein Thrombosis (DVT) Additional Past Medical History / Comment(s): Progressing left upper thigh pain and swelling and left leg weakness. 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 Crohns. Ostomy Bag placed in 09/2021. History of Any Multi-Drug Resistant Organisms: MRSA, Other MDRO Date of last positivie culture/infection: 07/07/24-Other MDRO; 12/14/23-MRSA MDRO Source:: Other MDRO - sputum, BAL; MRSA- nasal Past Surgical History: Cholecystectomy, Orthopedic Surgery Additional Past Surgical History / Comment(s): Arm surgery, right leg below knee amputation, ostomy (2021), bronch 06/2024 Past Anesthesia/Blood Transfusion Reactions: No Reported Reaction Additional Past Anesthesia/Blood Transfusion Reaction / Comment(s): recalled from previous admission Past Psychological History: No Psychological Hx Reported Additional Psychological History / Comment(s): recalled from previous admission Smoking Status: Former smoker Past Alcohol Use History: None Reported Additional Past Alcohol Use History / Comment(s): QUIT SMOKING IN 2017, STARTED SMOKING AT AGE 16, 1PPD. Past Drug Use History: None Reported Additional Drug Use History / Comment(s): recalled from previous admission - Past Family History Father Additional Family Medical History / Comment(s): DAD IN HIS TWENTIES - CAUSE UNKNOWN. Mother Family Medical History: Diabetes Mellitus Brother(s) Family Medical History: Cancer Additional Family Medical History / Comment(s): Kidney cancer as a baby. Medications and Allergies Home Medications Medication Instructions Recorded Confirmed Type Pantoprazole [Protonix] 40 mg PO BID 07/07/22 07/17/24 History Albuterol Nebulized [Ventolin 2.5 mg INHALATION RT-Q6H PRN 06/19/24 07/17/24 History Nebulized] Cholestyramine (with Sugar) 4 gm PO BID 06/19/24 07/17/24 History [Cholestyramine Packet] Enoxaparin [Lovenox] 90 mg SQ Q12H 06/19/24 07/17/24 History Folic Acid 1 mg PO DAILY 06/19/24 07/17/24 History Loperamide HCl [Imodium A-D] 4 mg PO TID 06/19/24 07/17/24 History Thiamine [Vitamin B-1] 100 mg PO DAILY 06/19/24 07/17/24 History Furosemide [Lasix] 20 mg PO DAILY 30 Days #30 tab 07/14/24 07/17/24 Rx busPIRone HCl [Buspar] 15 mg PO BID 30 Days #60 tab 07/14/24 07/17/24 Rx Ciprofloxacin Ophth Soln [Cipro 1 drops LEFT EYE Q4HR 5 Days #5 ml 07/17/24 Rx 0.3% Ophth Soln] HYDROcodone/APAP 5-325MG [[place] 1 tab PO Q6H PRN 07/17/24 07/17/24 History 5-325] Allergies Allergy/AdvReac Type Severity Reaction Status Date / Time piperacillin [From Zosyn] Allergy Rash/Hives Verified 07/17/24 08:34 tazobactam [From Zosyn] Allergy Rash/Hives Verified 07/17/24 08:34 Physical Exam Vitals: Vital Signs Temp Pulse Pulse Resp BP BP Pulse Ox 07/17/24 11:33 90 18 138/77 98 07/17/24 09:27 98 07/17/24 08:46 98.0 F 95 17 139/86 99 07/17/24 03:52 98.4 F 88 21 141/78 98 07/17/24 01:15 95 18 144/75 95 07/17/24 01:05 96 07/17/24 00:15 98.5 F 101 H 16 127/80 96 07/16/24 21:22 102 H 24 112/75 99 07/16/24 20:15 07/16/24 19:29 98.1 F 102 H 22 135/86 96 FiO2 07/17/24 11:33 35 07/17/24 09:27 35 07/17/24 08:46 35 07/17/24 03:52 35 07/17/24 01:15 35 07/17/24 01:05 35 07/17/24 00:15 07/16/24 21:22 07/16/24 20:15 32 07/16/24 19:29 Intake and Output 07/16/24 07/17/24 07/17/24 22:59 06:59 14:59 Intake Total 0 Output Total 1000 Balance -1000 Intake: Oral 0 Output: Urine 400 Stool 600 Other: Voiding Method Indwelling Catheter External Catheter Weight 90.718 kg 86.5 kg 86.5 kg GENERAL EXAM: Awake, alert 49-year-old male patient, on 28% FiO2 via trach collar, in no apparent distress. HEAD: Normocephalic. EYES: Normal reaction of pupils, equal size. NOSE: Clear with pink turbinates. THROAT: Tracheostomy tube secured in place. No erythema or exudates. NECK: No masses, no JVD. CHEST: No chest wall deformity. LUNGS: Equal air entry with coarse rhonchi bilaterally. CVS: S1 and S2 normal with no audible murmur, regular rhythm. ABDOMEN: Enterocutaneous fistula over the abdominal wall. No hepatosple nomegaly, normal bowel sounds. SPINE: No scoliosis or deformity SKIN: No rashes CENTRAL NERVOUS SYSTEM: No focal deficits, tone is normal in all 4 extremities. EXTREMITIES: Extensive muscle atrophy. Contractures. There is no peripheral edema. No clubbing, no cyanosis. Peripheral pulses are intact. Results - Laboratory Findings CBC and BMP: 07/16/24 21:20 07/17/24 10:57 Abnormal lab findings: Abnormal Labs 07/16/24 07/16/24 07/17/24 21:20 21:20 10:57 Hgb 11.7 L Hct 38.5 L MCH 25.3 L MCHC 30.4 L Chloride 95 L 97 L Carbon Dioxide 32 H BUN 26 H 24 H Creatinine 0.34 L 0.33 L Total Bilirubin 1.5 H Alkaline Phosphatase 128 H Total Protein 9.3 H - Diagnostic Findings Chest x-ray: image reviewed Assessment and Plan Assessment: Acute on chronic hypoxemic and hypercapnic respiratory failure, mainly secondary to mucous plugging. Another extended stay within the hospital from June 19, 2024 to July 16, 2024 for multiple medical issues including a left lower lobe pneumonia. Bronchoscopy 06/22/2024 with cultures positive for Pseudomonas aeruginosa and corynebacterium striatum. Repeat bronchoscopy with BAL 07/04/2024 again with Pseudomonas aeruginosa. Most likely a colonizer. History of recurrent ventilator dependent respiratory failure, secondary to pneumonia and mucous plugging Tracheal stenosis History of sepsis, secondary to pneumonia Crohn's disease, with previous bowel perforation, status post colectomy and diverting ileostomy Tracheobronchomalacia History of DVT History of CVA/TIA Right below the knee amputation History of asystole/cardiac arrest, 2021 Plan: The patient was seen and evaluated Chest x-ray, labs and medications reviewed Continue bronchodilators Continue TPN and lipids Continue Lovenox Currently stable on his 28% FiO2 via trach collar Case management working on placement again May need to go home with Residential home care as an option He would need to be home for at least 90 days before being able to obtain more long-term acute care days per his insurance I have personally seen and examined the patient, performed the documentation and the assessment and plan as written. Number of minutes spent on the visit: 20 Dictation was produced using [employer] dictation software. Please excuse any gram matical, word or spelling errors. Time with Patient: Greater than 30
[2024-07-17 15:22] VITALS: BP 142/82; PULSE 63; RESP 16
[2024-07-17] MEDS: ENOXAPARIN 100 MG/ML SYRINGE SQ SCH (15:49)
[2024-07-17] MEDS ORDERED: LOPERAMIDE 2 MG CAP PO SCH (16:00)
[2024-07-17] MEDS ORDERED: busPIRone HCl 5 MG TAB PO SCH (21:00)
[2024-07-17] MEDS ORDERED: PANTOPRAZOLE 40 MG TABLET PO SCH (21:00)
[2024-07-17] MEDS ORDERED: CHOLESTYRAMINE (WITH SUGAR) 4 GM PACKET PO SCH (22:00)
[2024-07-18] MEDS ORDERED: FOLIC ACID 1 MG TAB PO SCH (09:00)
[2024-07-18] MEDS ORDERED: THIAMINE 100 MG TAB PO SCH (09:00)
[2024-07-18] MEDS ORDERED: FUROSEMIDE 20 MG TAB PO SCH (09:00)
--- NOTE | 2024-07-18 15:38 | P.DS ---
Providers Date of admission: 07/16/24 20:58 Attending physician: Chepe Garrett Consults: 07/16/24 20:58 Consult Physician Urgent Consulting Provider: Estrella Ho Consult Reason/Comments: Increased tracheal secretions Do you want consulting provider notified?: Yes Primary care physician: Kailee Rose DO Hospital Course: Final Diagnosis - Crohn's disease with ileostomy in the past patient is presently on TPN - Right sided otitis media resolved - Tracheobronchomalacia - CVA TIA - History of DVT - Chronic medical debility with contractures of hands bilaterally - History of Right BKA Discharge Disposition Patient stable for [place] home with overall guarded prognosis. He has chronic medical debility, contractures. He is a right BKA. Has ileostomy and chronic abdominal wound. Has TPN infusing. He is a high risk for readmission. Tolerating the trach collar. Total time taken in discharge planning greater than 35 minutes. 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 Patient also with history of stroke, DVT and chronic medical debility with contractures of his hands bilaterally. Patient has had prolonged hospital stay secondary to a Pseudomonas pneumonia and difficulty weaning off the ventilator. He was tolerating trach collar secretions had been improved and he completed a course of IV antibiotics and was discharged to [facility] for rehabilitation. Patient was just discharged yesterday evening. He was brought back in from the [facility] around 7:40 PM yesterday evening with reports that he was too much care for the fdc staff. He is not a candidate for LTAC as he has been stable on the trach collar and he has no more select specialty days left this calendar year. Patient has no acute complaints he is not having any chest pain or shortness of breath. No nausea vomiting. Ileostomy is functioning well. PEG tube is functioning well and he is tolerating his TPN. He is saturating 98% on the trach collar. His blood work reveals a white blood cell count 9.23, hemoglobin [place] 0.7, sodium 137, potassium 4.2, BUN of 26 creatinine 0.34. Total bili 1.5 alk phos of 128. Glucose of 97. He is afebrile, blood pressure 139/86. TPN was set up through [facility] for the home DC. Patient will be discharged home. Please see medication reconciliation for a list of current medications. Thank you for allowing us to participate in the care of this patient. The impression and plan of care has been dictated by Coral Medina, Nurse Practitioner as directed. Dr. Mo MD I have performed a history and physical examination and medical decision making of this patient, discussed the same with the dictator, and agree with the dictators assessment and plan as written, documented as a scribe. Based on total visit time, I have performed more than 50% of this visit. Plan - Discharge Summary Discharge Rx Participant: Yes New Discharge Prescriptions: New Ciprofloxacin Ophth Soln [Cipro 0.3% Ophth Soln] 1 drops LEFT EYE Q4HR 5 Days #5 ml Continue Pantoprazole [Protonix] 40 mg PO BID Folic Acid 1 mg PO DAILY Albuterol Nebulized [Ventolin Nebulized] 2.5 mg INHALATION RT-Q6H PRN PRN Reason: Shortness Of Breath Furosemide [Lasix] 20 mg PO DAILY 30 Days #30 tab HYDROcodone/APAP 5-325MG [[place] 5-325] 1 tab PO Q6H PRN PRN Reason: Pain Thiamine [Vitamin B-1] 100 mg PO DAILY Cholestyramine (with Sugar) [Cholestyramine Packet] 4 gm PO BID Enoxaparin [Lovenox] 90 mg SQ Q12H Loperamide HCl [Imodium A-D] 4 mg PO TID busPIRone HCl [Buspar] 15 mg PO BID 30 Days #60 tab Discharge Medication List Pantoprazole [Protonix] 40 mg PO BID 07/07/22 [History] Albuterol Nebulized [Ventolin Nebulized] 2.5 mg INHALATION RT-Q6H PRN 06/19/24 [History] Cholestyramine (with Sugar) [Cholestyramine Packet] 4 gm PO BID 06/19/24 [History] Enoxaparin [Lovenox] 90 mg SQ Q12H 06/19/24 [History] Folic Acid 1 mg PO DAILY 06/19/24 [History] Loperamide HCl [Imodium A-D] 4 mg PO TID 06/19/24 [History] Thiamine [Vitamin B-1] 100 mg PO DAILY 06/19/24 [History] Furosemide [Lasix] 20 mg PO DAILY 30 Days #30 tab 07/14/24 [Rx] busPIRone HCl [Buspar] 15 mg PO BID 30 Days #60 tab 07/14/24 [Rx] Ciprofloxacin Ophth Soln [Cipro 0.3% Ophth Soln] 1 drops LEFT EYE Q4HR 5 Days #5 ml 07/17/24 [Rx] HYDROcodone/APAP 5-325MG [[place] 5-325] 1 tab PO Q6H PRN 07/17/24 [History] Follow up Appointment(s)/Referral(s): Kailee Rose DO [Primary Care Provider] - 1-2 days (Please call to schedule ) [facility] [REFERRING] - [facility]idential [facility] [NON-STAFF] - Chanel Uriostegui MD [STAFF PHYSICIAN] - 1 Week (Please call to schedule. ) Ambulatory/Diagnostic Orders: Basic Metabolic Panel [LAB.AMB] Time Frame: 3 Days, Location: None Selected Complete Blood Count w/diff [LAB.AMB] Location: None Selected Activity/Diet/Wound Care/Special Instructions: Continue eye gtts for the next 5-7 days Discharge/Stand Alone Forms: [place] [facility] Pamphlet, Who Do I Call?, Adult Foster Senior Living List, Community Resources, Help In The Home, Personal [employer] Helper Discharge Disposition: HOME WITH HOME HEALTH SERVICES
== END 2024-07-17 20:00 | disposition home health service (06) ==
LOC: EC 19:28 → 3SCARD 20:58
PROVIDERS: ADMIT Hospitalist; ATTEND Hospitalist
DX: J95.00 Unspecified tracheostomy complication (principal); J96.22 Acute and chronic respiratory failure with hypercapnia; J96.21 Acute and chronic respiratory failure with hypoxia; J39.8 Other specified diseases of upper respiratory tract; J98.09 Other diseases of bronchus, not elsewhere classified; K50.90 Crohn's disease, unspecified, without complications; R53.81 Other malaise; Z86.73 Personal history of transient ischemic attack (TIA), and cerebral infarction without residual deficits; Z86.718 Personal history of other venous thrombosis and embolism; Z79.899 Other long term (current) drug therapy; Z86.74 Personal history of sudden cardiac arrest; Z87.891 Personal history of nicotine dependence; Z89.511 Acquired absence of right leg below knee; Z90.49 Acquired absence of other specified parts of digestive tract; Z88.0 Allergy status to penicillin; Z88.1 Allergy status to other antibiotic agents
CPT/HCPCS: 96376; 96365; 96366; 96372; 96375; 99284; 94760; 80053; 80048; 83735; 84100; 85025; 71045; G0378 ×2; J3480; J1650; J3475 ×2; J1171 ×2; J2997; J0612

== ENCOUNTER 2024-07-18 12:34 | Inpatient (IN) | payer MEDICARE, OTHER ==
--- NOTE | 2024-07-18 13:19 | ED ---
General Adult HPI - General Chief complaint: Shortness of Breath Stated complaint: trach issue Time Seen by Provider: 07/18/24 12:40 Source: patient, EMS, RN notes reviewed, old records reviewed Mode of arrival: EMS Limitations: no limitations - History of Present Illness Initial comments: This is a 49-year-old male who presents to the emergency department with a significant past medical history for stroke and paralyzed right arm. Patient also has an open wound on his abdomen he also has a ostomy from surgery of Crohn's disease. Patient states the open wounds are because he had an infection. Patient was in the hospital in the ICU with pneumonia and discharged about 3 days ago and the very next day he came back to the emergency department was admitted again and was discharged home yesterday. Patient comes back today because he states he was desatting and having a hard time breathing. Patient denies any fever chills patient denies any new cough patient [place] any chest pain or any of the symptoms - Related Data Home Medications Medication Instructions Recorded Confirmed Pantoprazole [Protonix] 40 mg PO BID 07/07/22 07/17/24 Albuterol Nebulized [Ventolin 2.5 mg INHALATION RT-Q6H PRN 06/19/24 07/17/24 Nebulized] Cholestyramine (with Sugar) 4 gm PO BID 06/19/24 07/17/24 [Cholestyramine Packet] Enoxaparin [Lovenox] 90 mg SQ Q12H 06/19/24 07/17/24 Folic Acid 1 mg PO DAILY 06/19/24 07/17/24 Loperamide HCl [Imodium A-D] 4 mg PO TID 06/19/24 07/17/24 Thiamine [Vitamin B-1] 100 mg PO DAILY 06/19/24 07/17/24 HYDROcodone/APAP 5-325MG [[place] 1 tab PO Q6H PRN 07/17/24 07/17/24 5-325] Previous Rx's Medication Instructions Recorded Furosemide [Lasix] 20 mg PO DAILY 30 Days #30 tab 07/14/24 busPIRone HCl [Buspar] 15 mg PO BID 30 Days #60 tab 07/14/24 Ciprofloxacin Ophth Soln [Cipro 1 drops LEFT EYE Q4HR 5 Days #5 ml 07/17/24 0.3% Ophth Soln] Allergies Allergy/AdvReac Type Severity Reaction Status Date / Time piperacillin [From Zosyn] Allergy Rash/Hives Verified 07/18/24 12:39 tazobactam [From Zosyn] Allergy Rash/Hives Verified 07/18/24 12:39 Review of Systems ROS Statement: Those systems with pertinent positive or pertinent negative responses have been documented in the HPI. ROS Other: All systems not noted in ROS Statement are negative. Past Medical History Past Medical History: CVA/TIA, Deep Vein Thrombosis (DVT) Additional Past Medical History / Comment(s): Progressing left upper thigh pain and swelling and left leg weakness. 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 Crohns. Ostomy Bag placed in 2021. History of Any Multi-Drug Resistant Organisms: MRSA, Other MDRO Date of last positivie culture/infection: 07/07/24-Other MDRO; 12/14/23-MRSA MDRO Source:: Other MDRO - sputum, BAL; MRSA- nasal Past Surgical History: Cholecystectomy, Orthopedic Surgery Additional Past Surgical History / Comment(s): Arm surgery, right leg below knee amputation, ostomy (2021), bronch 06/2024 Past Anesthesia/Blood Transfusion Reactions: No Reported Reaction Additional Past Anesthesia/Blood Transfusion Reaction / Comment(s): recalled fro m previous admission Past Psychological History: No Psychological Hx Reported Smoking Status: Former smoker Past Alcohol Use History: None Reported Past Drug Use History: None Reported - Past Family History Father Additional Family Medical History / Comment(s): DAD IN HIS TWENTIES - CAUSE UNKNOWN. Mother Family Medical History: Diabetes Mellitus Brother(s) Family Medical History: Cancer Additional Family Medical History / Comment(s): Kidney cancer as a baby. General Exam - General Exam Comments Initial Comments: GENERAL: Patient is well-developed and well-nourished. Patient is nontoxic and well- hydrated and is in no acute distress. Patient is on 35% right now ENT: Neck is soft and supple. No significant lymphadenopathy is noted. Oropharynx is clear. Moist mucous membranes. Neck has full range of motion without eliciting any pain. EYES: The sclera were anicteric and conjunctiva were pink and moist. Extraocular movements were intact and pupils were equal round and reactive to light. Eyelids were unremarkable. PULMONARY: Unlabored respirations. Good breath sounds bilaterally. No audible rales rhonchi or wheezing was noted. CARDIOVASCULAR: There is a regular rate and rhythm without any murmurs gallops or rubs. ABDOMEN: Soft and nontender with normal bowel sounds. SKIN: Skin is clear with no lesions or rashes and otherwise unremarkable. NEUROLOGIC: Patient is alert and oriented x3. Cranial nerves II through XII are grossly intact. Motor and sensory are also intact. Normal speech, volume and content. Symmetrical smile. MUSCULOSKELETAL: Normal extremities with adequate strength and full range of motion. No lower extremity swelling or edema. No calf tenderness. LYMPHATICS: No significant lymphadenopathy is noted PSYCHIATRIC: Normal psychiatric evaluation. Limitations: no limitations Course Vital Signs 07/18/24 07/18/24 07/18/24 12:36 12:39 13:10 Temperature 98 F Pulse Rate 112 H Respiratory 24 24 Rate Blood Pressure 181/81 O2 Sat by Pulse 100 Oximetry Fraction of 35 Inspired Oxygen (FIO2) 07/18/24 07/18/24 14:43 14:55 Temperature Pulse Rate 96 107 H Respiratory 24 Rate Blood Pressure 155/71 O2 Sat by Pulse 88 L Oximetry Fraction of Inspired Oxygen (FIO2) Medical Decision Making - Medical Decision Making EKG is interpreted by myself. EKG shows a sinus tachycardia at 103 bpm CA is 152 QRS 109 QT interval 337 QTc is 397. Patient's EKG shows no ST segment elevation or depression. Was pt. sent in by a medical professional or institution ([facility], [facility], urgent care, hospital, or [facility]...) When possible be specific @ -No Did you speak to anyone other than the patient for history (EMS, parent, family, police, friend...)? What history was obtained from this source @ -No Did you review nursing and triage notes (agree or disagree)? Why? @ -I reviewed and agree with nursing and triage notes Were old charts reviewed (outside hosp., previous admission, EMS record, old EKG, old radiological studies, urgent care reports/EKG's, [facility] records)? Report findings @ -No old charts were reviewed Differential Diagnosis? @ -Differential Dyspnea: Coronary syndrome, arrhythmia, tamponade, asthma, COPD, pulmonary embolism, pneumonia, pneumothorax, pulmonary effusion, anaphylaxis, diabetic ketoacidosis, flailed chest, pulmonary contusion, diaphragmatic rupture, anemia, neuromuscular, this is not meant to be an all-inclusive list. EKG interpreted by me (3pts min.). @ -As above X-rays interpreted by me (1pt min.). @ -Chest x-ray shows no acute abnormality CT interpreted by me (1pt min.). @ -None done U/S interpreted by me (1pt. min.). @ -None done What testing was considered but not performed or refused? (CT, X-rays, U/S, labs)? Why? @ -None What meds were considered but not given or refused? Why? @ -None Did you discuss the management of the patient with other professionals (professionals i.e. Dr., PA, [facility], lab, RT, psych nurse, social worker school, document imaging manager, teacher, finance officer, dependency case manager)? Give summary @ -I spoke with Dr. Ho he states he is okay with the patient being admitted or sent home. I spoke with Dr. De La Rosa and he will admit the patient Was smoking cessation discussed for >3mins.? @ -No Was critical care preformed (if so, how long)? @ -No Were there social determinants of health that impacted care today? How? (Homelessness, low income, unemployed, alcoholism, drug addiction, transportation, low edu. Level, literacy, decrease access to med. care, fdc, rehab)? @ -No Was there de-escalation of care discussed even if they declined (Discuss DNR or withdrawal of care, Hospice)? DNR status @ -No What co-morbidities impacted this encounter? (DM, HTN, Smoking, COPD, CAD, Cancer, CVA, ARF, Chemo, Hep., AIDS, mental health diagnosis, sleep apnea, morbid obesity)? @ -None Was patient admitted / discharged? Hospital course, mention meds given and route, prescriptions, significant lab abnormalities, going to OR and other pertinent info. @ -Patient was desatting in the emergency department was put on 50% his baseline is 28%. I spoke with Dr. Ho he agreed that he will see the patient on consult. I spoke with Dr. De La Rosa and he agreed to admit the patient. Undiagnosed new problem with uncertain prognosis? @ -No Drug Therapy requiring intensive monitoring for toxicity (Heparin, Nitro, Insulin, Cardizem)? @ -No Were any procedures done? @ -No Diagnosis/symptom? @ -Dyspnea Acute, or Chronic, or Acute on Chronic? @ -Acute Uncomplicated (without systemic symptoms) or Complicated (systemic symptoms)? @ -Complicated Side effects of treatment? @ -No Exacerbation, Progression, or Severe Exacerbation? @ -No Poses a threat to life or bodily function? How? (Chest pain, [place], VA, pneumonia, PE, COPD, DKA, ARF, appy, cholecystitis, CVA, Diverticulitis, Homicidal, Suicid al, threat to staff... and all critical care pts) @ -No - Lab Data Result diagrams: 07/18/24 14:22 Lab Results 07/18/24 07/18/24 Range/Units 14:22 14:22 WBC 8.01 (4.50-10.00) 10*3/uL RBC 4.82 (4.40-5.60) 10*6/uL Hgb 12.2 L (13.0-17.0) g/dL Hct 40.0 (39.6-50.0) % MCV 83.0 (80.0-97.0) fL MCH 25.3 L (27.0-32.0) pg MCHC 30.5 L (32.0-37.0) g/dL MPV 12.2 (9.5-12.2) fL Immature Gran % (Auto) 1.0 % Immature Gran # 0.08 H (0.00-0.04) 10*3/uL Troponin I 0.022 (0.000-0.034) ng/mL Disposition Clinical Impression: Dyspnea Disposition: ADMITTED IP TO THIS HOSP Referrals: Kailee Rose DO [Primary Care Provider] - 1-2 days Time of Disposition: 15:25
--- NOTE | 2024-07-18 13:37 | XR ---
EXAMINATION TYPE: XR chest 1V portable DATE OF EXAM: 07/18/2024 1:31 PM COMPARISON: Multiple radiographs, with the most recent on 07/16/2024 TECHNIQUE: XR chest 1V portable Portable AP radiograph of the chest. CLINICAL INDICATION:Male, 49 years old with history of Shortness of breath; FINDINGS: Lungs/Pleura: No pleural effusion or pneumothorax. Right medial lung base patchy airspace opacities r edemonstrated. Additional left lung base airspace opacities. Pulmonary vascularity: Unremarkable. Heart/mediastinum: Cardiomediastinal silhouette is unremarkable. Musculoskeletal: No acute osseous pathology. Other findings: Surgical clips within the right supraclavicular region. Lines/Tubes: Left IJ approach central venous catheter with distal tip in the right atrium again. Tracheostomy cannula is in stable position. IMPRESSION: Similar bilateral lung base patchy airspace opacities representing infiltrates versus atelectasis. [facility], , 07/18/2024 1:35 PM
[2024-07-18] MEDS: LORazepam 2 MG/ML INJ IV STA (14:50)
[2024-07-18] MEDS: IPRATROPIUM-ALBUTEROL 3 ML NEB INHALATION STA (14:55)
[2024-07-18 15:09] LABS: Basophils # (A) 0.05 10*3/uL (0.00-0.10); Basophils % (A) 0.6 %; Eosinophils # (A) 0.06 10*3/uL (0.04-0.35); Eosinophils % (A) 0.7 %; HGB 12.2 g/dL (13.0-17.0); Lymphocytes # (A) 0.81 10*3/uL (0.90-5.00); Lymphocytes % (A) 10.1 %; MCH 25.3 pg (27.0-32.0); MCHC 30.5 g/dL (32.0-37.0); Mean Platelet Volume 12.2 fL (9.5-12.2); Monocytes # (A) 0.63 10*3/uL (0.20-1.00); Monocytes % (A) 7.9 %; Neutrophils # (A) 6.38 10*3/uL (1.80-7.70); Neutrophils % (A) 79.7 %; Platelet Count 190 10*3/uL (140-440); RBC 4.82 10*6/uL (4.40-5.60); RDW 16.5 % (11.5-14.5); WBC 8.01 10*3/uL (4.50-10.00)
[2024-07-18 16:16] LABS: ALT 54 U/L (4-49); AST 45 U/L (17-59); African American GFR (CKD) >90 (>60 ml/min/1.73 sqM); Alkaline Phosphatase 115 U/L (38-126); Anion Gap 7 mmol/L; Blood Urea Nitrogen 28 mg/dL (9-20); Calcium 9.3 mg/dL (8.4-10.2); Carbon Dioxide 33 mmol/L (22-30); Chloride 100 mmol/L (98-107); Glucose 128 mg/dL (74-99); Non-African American GFR(CKD) >90 (>60 ml/min/1.73 sqM); Potassium 4.6 mmol/L (3.5-5.1); Sodium 140 mmol/L (137-145); Total Bilirubin 1.1 mg/dL (0.2-1.3); Total Protein 9.1 g/dL (6.3-8.2)
[2024-07-18] MEDS ORDERED: NALOXONE 0.4 MG/ML 1 ML VIAL IV PRN (16:25)
[2024-07-18] MEDS: MORPHINE SULFATE 4 MG/ML SYRINGE IV PRN (17:24)
[2024-07-19 08:26] LABS: African American GFR (CKD) >90 (>60 ml/min/1.73 sqM); Anion Gap 5 mmol/L; Blood Urea Nitrogen 28 mg/dL (9-20); Calcium 9.3 mg/dL (8.4-10.2); Carbon Dioxide 34 mmol/L (22-30); Chloride 100 mmol/L (98-107); Glucose 124 mg/dL (74-99); Non-African American GFR(CKD) >90 (>60 ml/min/1.73 sqM); Potassium 4.8 mmol/L (3.5-5.1); Sodium 139 mmol/L (137-145)
[2024-07-19 08:33] LABS: Basophils # (A) 0.04 10*3/uL (0.00-0.10); Basophils % (A) 0.4 %; Eosinophils # (A) 0.02 10*3/uL (0.04-0.35); Eosinophils % (A) 0.2 %; HGB 12.6 g/dL (13.0-17.0); Lymphocytes # (A) 0.91 10*3/uL (0.90-5.00); Lymphocytes % (A) 10.2 %; MCH 24.9 pg (27.0-32.0); MCHC 28.6 g/dL (32.0-37.0); MCV 86.8 fL (80.0-97.0); Mean Platelet Volume 12.3 fL (9.5-12.2); Monocytes # (A) 1.01 10*3/uL (0.20-1.00); Monocytes % (A) 11.3 %; Neutrophils # (A) 6.94 10*3/uL (1.80-7.70); Neutrophils % (A) 77.5 %; Platelet Count 197 10*3/uL (140-440); RBC 5.07 10*6/uL (4.40-5.60); WBC 8.96 10*3/uL (4.50-10.00)
[2024-07-19] MEDS: FOLIC ACID 1 MG TAB PO SCH (09:02)
[2024-07-19] MEDS: LOPERAMIDE 2 MG CAP PO SCH (09:02)
[2024-07-19] MEDS: FUROSEMIDE 20 MG TAB PO SCH (09:02)
[2024-07-19] MEDS: PANTOPRAZOLE 40 MG TABLET PO SCH (09:02)
[2024-07-19] MEDS: THIAMINE 100 MG TAB PO SCH (09:02)
[2024-07-19] MEDS: HYDROcodone/APAP 5-325MG 1 EACH TAB PO PRN (09:02)
[2024-07-19] MEDS: busPIRone HCl 5 MG TAB PO SCH (09:02)
[2024-07-19] MEDS: CIPROFLOXACIN 0.3% OPHTH SOLN 5 ML BTL LEFT EYE SCH (09:13)
[2024-07-19] MEDS: ENOXAPARIN 100 MG/ML SYRINGE SQ SCH (11:03)
--- NOTE | 2024-07-19 13:31 | P.CNPUL ---
History of Present Illness Consult date: 07/19/24 Requesting physician: Torsten De La Rosa Reason for consult: dyspnea Chief complaint: Shortness of breath History of present illness: This is a 49-year-old male patient with a known history of recurrent ventilatory dependent respiratory failure secondary to pneumonias and mucous plugging, Crohn's disease, status post colectomy and diverting ileostomy, tracheobronchomalacia, DVT, CVA/TIA, right below the knee amputation, history of cardiac arrest in 2021. He was recently treated for Pseudomonas aeruginosa and corynebacterium stratum noted on bronchoscopy wash from 07/04/2024. He was on and off the ventilator throughout his stay wean admission on 06/19/2024 to discharge on 07/16/2024 to [facility]. Discharge planning had worked hard on finding a bed for him. All of his hospital stay information was reviewed with their liaison who accepted the patient. He has used up all his long-term acute care days. [facility] received the patient on 07/16/2024 and only kept him maybe a few hours and sent him back here to the emergency room stating they are unable to take care of him. We saw the patient on consultation on 07/17/2024, and considering the patient was doing fairly well, we recommended that the patient could be discharged home. However patient came back yesterday with recurrent episodes of shortness of breath, possibly related to worsening tracheal secretions and possibly sometimes mucous plugging. We saw the patient again today, he seems to be very comfortable, not in any distress, on trach collar, and his chest x-ray showed mostly minimal atelectasis no clear-cut evidence of pneumonia. Patient had a relatively normal CBC with WBC count of 8.9 hemoglobin 12.6 electrolytes are normal renal profile is normal, we believe the patient was mostly readmitted only because of placement issues. Review of Systems CONSTITUTIONAL: Denies any recent significant weight loss or weight gain. EYES: Denies change in vision. EARS, NOSE, MOUTH, THROAT: Denies headaches, denies sore throat. CARDIOVASCULAR: Denies chest pain, palpitations or syncopal episodes. RESPIRATORY: Recurrent episodes of chronic shortness of breath and sometimes excessive tracheal secretions GASTROINTESTINAL: Denies change in appetite, denies abdominal pain GENITOURINARY: Denies hematuria, denies infections. MUSKULOSKELETAL: Denies pain, denies swelling. INTEGUMENTARY: Denies rash, denies eczema. NEUROLOGICAL: Denies recent memory loss, no recent seizure activity. PSYCHIATRIC: Denies anxiety, denies depression. HEMATOLOGIC/LYMPHATIC: Denies anemia, denies enlarged lymph nodes. Past Medical History Past Medical History: CVA/TIA, Deep Vein Thrombosis (DVT) Additional Past Medical History / Comment(s): Progressing left upper thigh pain and swelling and left leg weakness. 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 Crohns. Ostomy Bag placed in 09/2021. History of Any Multi-Drug Resistant Organisms: MRSA, Other MDRO Date of last positivie culture/infection: 07/07/24-Other MDRO; 12/14/23-MRSA MDRO Source:: Other MDRO - sputum, BAL; MRSA- nasal Past Surgical History: Cholecystectomy, Orthopedic Surgery Additional Past Surgical History / Comment(s): Arm surgery, right leg below knee amputation, ostomy (2021), bronch 06/2024 Past Anesthesia/Blood Transfusion Reactions: No Reported Reaction Additional Past Anesthesia/Blood Transfusion Reaction / Comment(s): recalled from previous admission Smoking Status: Former smoker - Past Family History Father Additional Family Medical History / Comment(s): DAD IN HIS TWENTIES - CAUSE UNKNOWN. Mother Family Medical History: Diabetes Mellitus Brother(s) Family Medical History: Cancer Additional Family Medical History / Comment(s): Kidney cancer as a baby. Medications and Allergies Home Medications Medication Instructions Recorded Confirmed Type Pantoprazole [Protonix] 40 mg PO BID 07/07/22 07/18/24 History Enoxaparin [Lovenox] 90 mg SQ Q12H 06/19/24 07/18/24 History Folic Acid 1 mg PO DAILY 06/19/24 07/18/24 History Loperamide HCl [Imodium A-D] 4 mg PO TID 06/19/24 07/18/24 History Thiamine [Vitamin B-1] 100 mg PO DAILY 06/19/24 07/18/24 History Furosemide [Lasix] 20 mg PO DAILY 30 Days #30 tab 07/14/24 07/18/24 Rx busPIRone HCl [Buspar] 15 mg PO BID 30 Days #60 tab 07/14/24 07/18/24 Rx Ciprofloxacin Ophth Soln [Cipro 1 drops LEFT EYE Q4HR 5 Days #5 ml 07/17/24 07/18/24 Rx 0.3% Ophth Soln] HYDROcodone/APAP 5-325MG [[place] 1 tab PO Q6H PRN 07/17/24 07/18/24 History 5-325] Allergies Allergy/AdvReac Type Severity Reaction Status Date / Time piperacillin [From Zosyn] Allergy Rash/Hives Verified 07/18/24 17:03 tazobactam [From Zosyn] Allergy Rash/Hives Verified 07/18/24 17:03 Physical Exam Vitals: Vital Signs Temp Pulse Pulse Resp BP BP Pulse Ox 07/19/24 12:05 98 07/19/24 11:06 97.6 F 91 18 137/75 98 07/19/24 08:58 97.6 F 91 19 136/73 98 07/19/24 03:02 97.9 F 88 20 141/73 94 L 07/19/24 02:34 20 07/19/24 01:58 07/19/24 00:15 98.9 F 89 20 159/73 98 07/18/24 22:50 20 07/18/24 22:06 100 134/71 98 07/18/24 20:43 99.0 F 98 18 134/71 97 07/18/24 20:08 96 18 139/78 96 07/18/24 18:59 100 18 95 07/18/24 15:20 109 H 07/18/24 14:55 107 H 07/18/24 14:50 07/18/24 14:43 96 24 155/71 88 L FiO2 07/19/24 12:05 60 07/19/24 11:06 40 07/19/24 08:58 40 07/19/24 03:02 60 07/19/24 02:34 07/19/24 01:58 40 07/19/24 00:15 60 07/18/24 22:50 07/18/24 22:06 07/18/24 20:43 07/18/24 20:08 07/18/24 18:59 07/18/24 15:20 07/18/24 14:55 07/18/24 14:50 60 07/18/24 14:43 Intake and Output 07/18/24 07/19/24 07/19/24 22:59 06:59 14:59 Intake Total 260 Output Total 600 Balance -600 260 Intake: IV 20 Invasive Line 1 20 Oral 240 Output: Urine 300 Stool 300 Other: Voiding Method External Catheter External Catheter Diaper Incontinent # Voids 1 Weight 90.718 kg 90.5 kg GENERAL EXAM: Awake, alert 49-year-old male patient, on 40% FiO2 via trach collar, in no apparent distress. HEAD: Normocephalic. EYES: Normal reaction of pupils, equal size. NOSE: Clear with pink turbinates. THROAT: Tracheostomy tube secured in place. No erythema or exudates. NECK: No masses, no JVD. CHEST: No chest wall deformity. LUNGS: Equal air entry with coarse rhonchi bilaterally. CVS: S1 and S2 normal with no audible murmur, regular rhythm. ABDOMEN: Enterocutaneous fistula over the abdominal wall. No hepatosplenomegaly, normal bowel sounds. SPINE: No scoliosis or deformity SKIN: No rashes CENTRAL NERVOUS SYSTEM: No focal deficits, tone is normal in all 4 extremities. EXTREMITIES: Extensive muscle atrophy. Contractures. There is no peripheral edema. No clubbing, no cyanosis. Peripheral pulses are intact. Results - Laboratory Findings CBC and BMP: 07/19/24 07:28 07/19/24 07:28 Abnormal lab findings: Abnormal Labs 07/18/24 07/18/24 07/19/24 14:22 15:47 07:28 Hgb 12.2 L 12.6 L MCH 25.3 L 24.9 L MCHC 30.5 L 28.6 L MPV 12.3 H Immature Gran # 0.08 H Lymphocytes # 0.81 L Monocytes # 1.01 H Eosinophils # 0.02 L Carbon Dioxide 33 H BUN 28 H Creatinine 0.33 L Glucose 128 H ALT 54 H Total Protein 9.1 H 07/19/24 07:28 Hgb MCH MCHC MPV Immature Gran # Lymphocytes # Monocytes # Eosinophils # Carbon Dioxide 34 H BUN 28 H Creatinine 0.38 L Glucose 124 H ALT Total Protein - Diagnostic Findings Chest x-ray: image reviewed (As noted in HPI) Assessment and Plan Assessment: Impression: Acute on chronic hypoxemic and hypercapnic respiratory failure, mainly secondary to mucous plugging. Another extended stay within the hospital from June 19, 2024 to July 16, 2024 for multiple medical issues including a left lower lobe pneumonia. Bronchoscopy 06/22/2024 with cultures positive for Pseudomonas aeruginosa and corynebacterium striatum. Repeat bronchoscopy with BAL 07/04/2024 again with Pseudomonas aeruginosa. Most likely a colonizer. History of recurrent ventilator dependent respiratory failure, secondary to pneumonia and mucous plugging Tracheal stenosis History of sepsis, secondary to pneumonia Crohn's disease, with previous bowel perforation, status post colectomy and diverting ileostomy Tracheobronchomalacia History of DVT History of CVA/TIA Right below the knee amputation History of asystole/cardiac arrest, 2021 Plan: Seen and examined, chest x-ray reviewed labs were reviewed again we believe the patient was admitted mostly because of placement issues and he has no one to take care of him at home. Patient definitely needs placement in ECF for 24-hour care. Otherwise he will end up back in the hospital within 24 hours after discharge, anytime he is to be discharged. Continue bronchodilators Continue TPN and lipids Continue Lovenox Titrate FiO2 accordingly on trach collar Suction secretions as felt necessary. Consider changing tracheostomy to a cuffless tracheostomy tube Case management working on placement again We will continue to follow Time with Patient: Greater than 30
--- NOTE | 2024-07-19 14:23 | P.HPIM ---
History of Present Illness H&P Date: 07/19/24 This is a 49-year-old male with medical history significant for Crohn's disease with ileostomy maintained on TPN, tracheobronchomalacia with history of tracheal stenosis requiring tracheostomy placement. Patient also with history of stroke, DVT and chronic medical debility with contractures of his hands bilaterally, and right arm weakness. Patient has had prolonged hospital stay secondary to a Pse udomonas pneumonia and difficulty weaning off the ventilator. He was tolerating trach collar secretions had been improved and he completed a course of IV antibiotics and was discharged to [facility] for rehabilitation. He was brought back in from the [facility] with reports that he was too much care for the detention staff. He is not a candidate for LTAC as he has been stable on the trach collar and he has no more select specialty days left this calendar year. Discussed with [facility] and they will provide the TPN and patient to be set up with visiting physicians. He was home again for 24 hours and came back to the hospital with complaints of difficulty breathing and sates the suctioning and trach care performed by his mother and son is not going well. He states he had increased secretions. He is not having any chest pains. He is awake and alert, oriented. He has a flat affect. He is unsure what to do and where to discharge to. Social work will be back on Saturday for follow up and assistance with DC planning. White blood cell count 8.96, hgb 12.6, sodium 139, potassium 4.8, BUN 28, creatinine 0.38. Glucose 124. He will be resumed on TPN through the PEG tube. REVIEW OF SYSTEMS: CONSTITUTIONAL: No fever, no malaise, no fatigue. HEENT: No recent visual problems or hearing problems. Denied any sore throat. CARDIOVASCULAR: No chest pain, orthopnea, PND, no palpitations, no syncope. PULMONARY: No shortness of breath, no cough, no hemoptysis. GASTROINTESTINAL: No diarrhea, no nausea, no vomiting, no abdominal pain. NEUROLOGICAL: No headaches, no weakness, no numbness. HEMATOLOGICAL: Denies any bleeding or petechiae. GENITOURINARY: Denies any burning micturition, frequency, or urgency. MUSCULOSKELETAL/RHEUMATOLOGICAL: Denies any joint pain, swelling, or any muscle pain. ENDOCRINE: Denies any polyuria or polydipsia. The rest of the 14-point review of systems is negative. PHYSICAL EXAMINATION: GENERAL: The patient is alert and oriented x3, not in any acute distress. Well developed, well nourished. HEENT: Pupils are round and equally reacting to light. EOMI. No scleral icterus. No conjunctival pallor. Normocephalic, atraumatic. No pharyngeal erythema. No t hyromegaly. CARDIOVASCULAR: S1 and S2 present. No murmurs, rubs, or gallops. PULMONARY: Chest is clear to auscultation, no wheezing or crackles. ABDOMEN: Soft, nontender, nondistended, normoactive bowel sounds. No palpable organomegaly. Ileostomy in place and functioning with liquid stools. MUSCULOSKELETAL: No joint swelling or deformity. EXTREMITIES: No cyanosis, clubbing, or pedal edema. NEUROLOGICAL: Gross neurological examination did not reveal any focal deficits. Contractures of hands bilaterally. SKIN: No rashes. Assessment and Plan - Crohn's disease with ileostomy in the past patient is presently on TPN - Right sided otitis media resolved - Tracheobronchomalacia - CVA TIA - History of DVT - Chronic medical debility with contractures of hands bilaterally GI prophylaxis DVT prophylaxis Plan Resume home medications Continue routine trach care with suctioning PRN Continue enteral feedings through PEG tube Ileostomy functioning Social work on for discharge planning and will follow up Saturday. Patient states he was not doing well at home with family providing suctioning and trach care and states he couldn't breath. He came back in for discharge planning and trach care. The impression and plan of care has been dictated by Coral Medina Nurse Practitioner as directed. Dr. Mo MD I have performed a history and physical examination and medical decision making of this patient, discussed the same with the dictator, and agree with the dictators assessment and plan as written, documented as a scribe. Based on total visit time, I have performed more than 50% of this visit. Past Medical History Past Medical History: CVA/TIA, Deep Vein Thrombosis (DVT) Additional Past Medical History / Comment(s): Progressing left upper thigh pain and swelling and left leg weakness. 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 Crohns. Ostomy Bag placed in 09/2021. History of Any Multi-Drug Resistant Organisms: MRSA, Other MDRO Date of last positivie culture/infection: 07/07/24-Other MDRO; 12/14/23-MRSA MDRO Source:: Other MDRO - sputum, BAL; MRSA- nasal Past Surgical History: Cholecystectomy, Orthopedic Surgery Additional Past Surgical History / Comment(s): Arm surgery, right leg below knee amputation, ostomy (2021), bronch 06/2024 Past Anesthesia/Blood Transfusion Reactions: No Reported Reaction Additional Past Anesthesia/Blood Transfusion Reaction / Comment(s): recalled from previous admission Smoking Status: Former smoker - Past Family History Father Additional Family Medical History / Comment(s): DAD IN HIS TWENTIES - CAUSE UNKNOWN. Mother Family Medical History: Diabetes Mellitus Brother(s) Family Medical History: Cancer Additional Family Medical History / Comment(s): Kidney cancer as a baby. Medications and Allergies Home Medications Medication Instructions Recorded Confirmed Type Pantoprazole [Protonix] 40 mg PO BID 07/07/22 07/18/24 History Enoxaparin [Lovenox] 90 mg SQ Q12H 06/19/24 07/18/24 History Folic Acid 1 mg PO DAILY 06/19/24 07/18/24 History Loperamide HCl [Imodium A-D] 4 mg PO TID 06/19/24 07/18/24 History Thiamine [Vitamin B-1] 100 mg PO DAILY 06/19/24 07/18/24 History Furosemide [Lasix] 20 mg PO DAILY 30 Days #30 tab 07/14/24 07/18/24 Rx busPIRone HCl [Buspar] 15 mg PO BID 30 Days #60 tab 07/14/24 07/18/24 Rx Ciprofloxacin Ophth Soln [Cipro 1 drops LEFT EYE Q4HR 5 Days #5 ml 07/17/24 07/18/24 Rx 0.3% Ophth Soln] HYDROcodone/APAP 5-325MG [[place] 1 tab PO Q6H PRN 07/17/24 07/18/24 History 5-325] Allergies Allergy/AdvReac Type Severity Reaction Status Date / Time piperacillin [From Zosyn] Allergy Rash/Hives Verified 07/18/24 17:03 tazobactam [From Zosyn] Allergy Rash/Hives Verified 07/18/24 17:03 Physical Exam Vitals: Vital Signs Temp Pulse Pulse Resp BP BP Pulse Ox 07/19/24 03:02 97.9 F 88 20 141/73 94 L 07/19/24 02:34 20 07/19/24 01:58 07/19/24 00:15 98.9 F 89 20 159/73 98 07/18/24 22:50 20 07/18/24 22:06 100 134/71 98 07/18/24 20:43 99.0 F 98 18 134/71 97 07/18/24 20:08 96 18 139/78 96 07/18/24 18:59 100 18 95 07/18/24 15:20 109 H 07/18/24 14:55 107 H 07/18/24 14:50 07/18/24 14:43 96 24 155/71 88 L 07/18/24 13:10 07/18/24 12:39 24 07/18/24 12:36 98 F 112 H 24 181/81 100 FiO2 07/19/24 03:02 60 07/19/24 02:34 07/19/24 01:58 40 07/19/24 00:15 60 07/18/24 22:50 07/18/24 22:06 07/18/24 20:43 07/18/24 20:08 07/18/24 18:59 07/18/24 15:20 07/18/24 14:55 07/18/24 14:50 60 07/18/24 14:43 07/18/24 13:10 35 07/18/24 12:39 07/18/24 12:36 Intake and Output 07/18/24 07/19/24 07/19/24 22:59 06:59 14:59 Intake Total 260 Output Total 600 Balance -600 260 Intake: IV 20 Invasive Line 1 20 Oral 240 Output: Urine 300 Stool 300 Other: Voiding Method External Catheter External Catheter # Voids 1 Weight 90.718 kg 90.5 kg Results CBC & Chem 7: 07/19/24 07:28 07/19/24 07:28 Labs: Abnormal Lab Results - Last 24 Hours (Table) 07/18/24 07/18/24 07/19/24 Range/Units 14:22 15:47 07:28 Hgb 12.2 L 12.6 L (13.0-17.0) g/dL MCH 25.3 L 24.9 L (27.0-32.0) pg MCHC 30.5 L 28.6 L (32.0-37.0) g/dL MPV 12.3 H (9.5-12.2) fL Immature Gran # 0.08 H (0.00-0.04) 10*3/uL Lymphocytes # 0.81 L (0.90-5.00) 10*3/uL Monocytes # 1.01 H (0.20-1.00) 10*3/uL Eosinophils # 0.02 L (0.04-0.35) 10*3/uL Carbon Dioxide 33 H (22-30) mmol/L BUN 28 H (9-20) mg/dL Creatinine 0.33 L (0.66-1.25) mg/dL Glucose 128 H (74-99) mg/dL ALT 54 H (4-49) U/L Total Protein 9.1 H (6.3-8.2) g/dL 07/19/24 Range/Units 07:28 Hgb (13.0-17.0) g/dL MCH (27.0-32.0) pg MCHC (32.0-37.0) g/dL MPV (9.5-12.2) fL Immature Gran # (0.00-0.04) 10*3/uL Lymphocytes # (0.90-5.00) 10*3/uL Monocytes # (0.20-1.00) 10*3/uL Eosinophils # (0.04-0.35) 10*3/uL Carbon Dioxide 34 H (22-30) mmol/L BUN 28 H (9-20) mg/dL Creatinine 0.38 L (0.66-1.25) mg/dL Glucose 124 H (74-99) mg/dL ALT (4-49) U/L Total Protein (6.3-8.2) g/dL Thrombosis Risk Factor Assmnt - Choose All That Apply Any of the Below Risk Factors Present?: Yes Each Factor Represents 1 point: Abnormal pulmonary function (COPD), Age 41-60 years, Medical pt on bed rest, Obesity (BMI >25) Other Risk Factors: No Thrombosis Risk Factor Assessment Total Risk Factor Score: 4 Thrombosis Risk Factor Assessment Level: Moderate Risk Assessment and Plan Time with Patient: Less than 30
[2024-07-19] MEDS: ALPRAZolam 0.25 MG TAB PO PRN (14:34)
[2024-07-19 15:21] LABS: Magnesium 2.1 mg/dL (1.6-2.3); Phosphorus 4.1 mg/dL (2.5-4.5)
[2024-07-19] MEDS ORDERED: FAT EMULSION 20% 250 ML in EMPTY BAG 1 BAG IV SCH (16:00)
[2024-07-19] MEDS: IPRATROPIUM-ALBUTEROL 3 ML NEB INHALATION SCH (16:32)
[2024-07-19] MEDS: FAT EMULSION 20% 250 ML in EMPTY BAG 1 BAG IV SCH (16:47)
[2024-07-19] MEDS: MVI, ADULT NO.4 WITH VIT K 10 ML, TRACE (CONC-1ML/DOSE) 1 ML, SODIUM CHLORIDE 4MEQ/ML V... IV ONE (16:48)
[2024-07-19 20:01] LABS: Glucose,Whole Blood 158 mg/dL (70-110)
[2024-07-19 20:27] LABS: Glucose,Whole Blood 154 mg/dL (70-110)
--- NOTE | 2024-07-19 20:51 | XR ---
EXAMINATION TYPE: XR chest 1V portable DATE OF EXAM: 07/19/2024 8:44 PM COMPARISON: 07/18/2024 CLINICAL INDICATION: Male, 49 years old with history of Resp distress, FINDINGS: Tracheostomy tube and central venous line unchanged. Stable left perihilar and left lower lobe infiltrate and/or atelectasis with effusion. Patchy density right lower lobe. Improved aeration right medial lung base. Stable appearance of the cardio-mediastinal structures at this time. Pleural effusion unchanged. IMPRESSION: 1. Stable left perihilar and left lower lobe infiltrate and/or atelectasis with effusion. Patchy den sity right lower lobe. Improved aeration right medial lung base. [facility], , 07/19/2024 8:49 PM
[2024-07-19] MEDS: PANTOPRAZOLE 40 MG/10 ML VIAL IVP SCH (21:34)
[2024-07-20] MEDS: SODIUM CHLORIDE 0.9% 1,000 ML IV SCH (00:23)
[2024-07-20 01:01] LABS: Glucose,Whole Blood 100 mg/dL (70-110)
[2024-07-20] MEDS: SODIUM CHLORIDE 0.9% 1,000 ML IV ONE ×2 (02:05→09:23)
[2024-07-20] MEDS: SODIUM CHLORIDE 0.9% 500 ML 500 ML IV ONE (05:00)
[2024-07-20] MEDS ORDERED: VANCOMYCIN IV PER PHARMACY 1 EACH MISC MISCELLANE PRN (05:27)
[2024-07-20 05:44] LABS: Basophils # (A) 0.02 10*3/uL (0.00-0.10); Basophils % (A) 0.2 %; HCT 38.9 % (39.6-50.0); HGB 11.4 g/dL (13.0-17.0); Lymphocytes # (A) 0.88 10*3/uL (0.90-5.00); Lymphocytes % (A) 8.3 %; MCH 25.4 pg (27.0-32.0); MCHC 29.3 g/dL (32.0-37.0); MCV 86.6 fL (80.0-97.0); Mean Platelet Volume 11.8 fL (9.5-12.2); Monocytes # (A) 0.56 10*3/uL (0.20-1.00); Monocytes % (A) 5.3 %; Neutrophils # (A) 9.08 10*3/uL (1.80-7.70); Platelet Count 185 10*3/uL (140-440); RBC 4.49 10*6/uL (4.40-5.60); RDW 16.4 % (11.5-14.5); WBC 10.56 10*3/uL (4.50-10.00)
[2024-07-20 06:03] LABS: Ionized Calcium 4.9 mg/dL (4.5-5.3)
[2024-07-20 06:12] LABS: ALT 47 U/L (4-49); AST 37 U/L (17-59); African American GFR (CKD) >90 (>60 ml/min/1.73 sqM); Albumin 3.4 g/dL (3.5-5.0); Alkaline Phosphatase 103 U/L (38-126); Anion Gap 9 mmol/L; Blood Urea Nitrogen 38 mg/dL (9-20); Calcium 9.4 mg/dL (8.4-10.2); Carbon Dioxide 27 mmol/L (22-30); Chloride 100 mmol/L (98-107); Glucose 116 mg/dL (74-99); Magnesium 1.7 mg/dL (1.6-2.3); Non-African American GFR(CKD) >90 (>60 ml/min/1.73 sqM); Phosphorus 1.3 mg/dL (2.5-4.5); Sodium 136 mmol/L (137-145); Total Bilirubin 1.2 mg/dL (0.2-1.3); Total Protein 7.7 g/dL (6.3-8.2)
[2024-07-20 06:32] LABS: Glucose,Whole Blood 134 mg/dL (70-110)
[2024-07-20] MEDS: VANCOMYCIN 1,500 MG in SODIUM CHLORIDE 0.9% 500 ML 500 ML IVPB SCH ×2 (06:34→23:47)
[2024-07-20 06:46] LABS: Appearance,Urine Turbid (Clear); Bilirubin,Urine 1+ (Negative); Blood,Urine Large (Negative); Budding Yeast,Urine Moderate /hpf; Calcium Oxalate Crystals,Urine Rare /hpf; Color,Urine Red; Glucose,Urine (UA) Trace (Negative); Granular Casts,Urine 16 /lpf (0); Hyaline Casts,Urine 80 /lpf (0-2); Ketones,Urine Negative (Negative); Leukocyte Esterase,Urine Large (Negative); Mucus,Urine Many /hpf; Nitrite,Urine Negative (Negative); PH, Urine 5.5 (5.0-8.0); Protein,Urine 2+ (Negative); RBC,Urine >182 /hpf (0-5); Specific Gravity,Urine 1.025 (1.001-1.035); WBC,Urine >182 /hpf (0-5)
--- NOTE | 2024-07-20 07:52 | XR ---
EXAMINATION TYPE: XR chest 1V portable DATE OF EXAM: 07/20/2024 5:26 AM COMPARISON: Multiple radiographs, with the most recent on 07/19/2024 TECHNIQUE: XR chest 1V portable Portable AP radiograph of the chest. CLINICAL INDICATION:Male, 49 years old with history of Tube placement; FINDINGS: Lungs/Pleura: No pleural effusion or pneumothorax. Right basilar patchy airspace opacities redemonstr ated. Left basilar linear atelectasis. Pulmonary vascularity: Unremarkable. Heart/mediastinum: Cardiomediastinal silhouette is unremarkable. Musculoskeletal: No acute osseous pathology. Other findings: Surgical clips within the right supraclavicular region. Lines/Tubes: Left IJ approach central venous catheter with distal tip at the superior cavoatrial junction. Tracheostomy cannula is in stable position. IMPRESSION: Left basilar linear atelectasis with similar right basilar airspace opacities which may represent ate lectasis versus infiltrates. [facility], , 07/20/2024 7:49 AM
[2024-07-20] MEDS ORDERED: FUROSEMIDE 10 MG/ML 2 ML VIAL IV SCH (09:00)
[2024-07-20] MEDS: ACETAMINOPHEN IV (For NPO) 1,000 MG in EMPTY BAG 1 BAG IVPB PRN (10:26)
[2024-07-20] MEDS: MAGNESIUM SULFATE-D5W PMX 1 GM in DEXTROSE/WATER 1 100ML.BAG IVPB SCH (10:30)
[2024-07-20] MEDS: SODIUM PHOSPHATE 30 MMOL in DEXTROSE 5% IN WATER 250 ML IVPB ONE (10:31)
[2024-07-20] MEDS: SCOPOLAMINE 1 MG/72 HR PATCH TRANSDERM SCH (11:22)
[2024-07-20 11:36] LABS: Glucose,Whole Blood 181 mg/dL (70-110)
--- NOTE | 2024-07-20 12:36 | P.PN ---
Subjective Progress Note Date: 07/20/24 This is a 49-year-old male patient with a known history of recurrent ventilatory dependent respiratory failure secondary to pneumonias and mucous plugging, Crohn's disease, status post colectomy and diverting ileostomy, tracheobronchomalacia, DVT, CVA/TIA, right below the knee amputation, history of cardiac arrest in 2021. He was recently treated for Pseudomonas aeruginosa and corynebacterium stratum noted on bronchoscopy wash from 07/04/2024. He was on and off the ventilator throughout his stay wean admission on 06/19/2024 to discharge on 07/16/2024 to [facility]. Discharge planning had worked hard on finding a bed for him. All of his hospital stay information was reviewed with their liaison who accepted the patient. He has used up all his long-term acute care days. [facility] received the patient on 07/16/2024 and only kept him maybe a few hours and sent him back here to the emergency room stating they are unable to take care of him. We saw the patient on consultation on 07/17/2024, and considering the patient was doing fairly well, we recommended that the patient could be discharged home. However patient came back yesterday with recurrent episodes of shortness of breath, possibly related to worsening tracheal secretions and possibly sometimes mucous plugging. We saw the patient again today, he seems to be very comfortable, not in any distress, on trach collar, and his chest x-ray showed mostly minimal atelectasis no clear-cut evidence of pneumonia. Patient had a relatively normal CBC with WBC count of 8.9 hemoglobin 12.6 electrolytes are normal renal profile is normal, we believe the patient was mostly readmitted only because of placement issues. The patient is seen today July 20, 2024 in follow-up in the intensive care unit. Transferred here from 3 . after a rapid response team was called on him for worsening shortness of breath and hypotension. He was placed back on mechanical ventilator. Current settings assist-control mode at a rate of 20, tidal volume 500, FiO2 60% and a PEEP of 5. Blood gases unable to be obtained per respiratory therapy. White count 10.5. Hemoglobin 11.4. Platelets 185. Sodium 136. Potassium 5.0. Bicarb 27. BUN 38. Creatinine 0.57. Glucose 116. Procalcitonin 1.05. Urinalysis with large leukocyte Estrace, high WBCs, high RBCs. Culture pending. Current temperature 101.1. Chest x-ray reveals left basilar linear atelectasis with some similar right basilar airspace opacities. Left IJ approach dual-lumen PICC line in place. Tracheostomy cannula in stable position. He remains on DuoNeb inhalations. Receiving TPN currently at 30 mL/h with a goal of 95 mL/h. Lipids every 72 hours. He remains on therapeutic Lovenox at 90 mg SQ every 12 hours. Continued on vancomycin and Avycaz. Objective - Vital Signs Vital signs: Vital Signs Temp 101.1 F H 07/20/24 08:00 Pulse 93 07/20/24 11:00 Resp 20 07/20/24 11:00 BP 70/42 07/20/24 11:00 Pulse Ox 100 07/20/24 11:00 FiO2 60 07/20/24 11:00 Intake & Output 07/19/24 07/20/24 07/20/24 18:59 06:59 18:59 Intake Total 280 2319 2825 Output Total 400 135 864 Balance -120 2184 1961 Weight 88.3 kg 88.3 kg Intake: IV 40 1965 2675 0.9 NS Bolus 1000 ACETAMINOPHEN IV (For NPO 100 ) 1,000 mg In Empty Bag 1 bag @ 400 mls/hr IVPB Q6HR PRN Rx#:[id number] Cefepime 2 gm In Dextrose 100 5% in Water 100 ml @ 25 mls/hr IVPB Q8H [facility] Rx#: [id number] Invasive Line 1 40 40 Magnesium Sulfate-D5w Pmx 100 1 gm In Dextrose/Water 1 100ml.bag @ 100 mls/hr IVPB Q1H [facility] Rx#: [id number] Sodium Chloride 0.9% 1, 425 625 000 ml @ 125 mls/hr IV . Q8H [facility] Rx#:[id number] Sodium Chloride 0.9% 1, 1000 000 ml @ 999 mls/hr IV . Q1H1M [facility] Rx#:[id number] Sodium Chloride 0.9% 500 500 ml 500 ml @ 999 mls/hr IV .Q31M [facility] Rx#:[id number] Sodium Phosphate 30 mmol 250 In Dextrose 5% in Water 250 ml @ 65 mls/hr IVPB ONCE [facility] Rx#:[id number] Vancomycin 1,500 mg In 500 Sodium Chloride 0.9% 500 ml 500 ml @ 167 mls/hr IVPB Q16H [facility] Rx#: [id number] Oral 240 TPN/PPN 354 150 Fat Emulsion 20% 250 ml 84 In Empty Bag 1 bag @ 21 mls/hr IV Q72H [facility] Rx#: [id number] Mvi, Adult No.4 with Vit 270 150 K 10 ml Trace (Conc-1Ml/ Dose) 1 ml Sodium Chloride 4Meq/ml Vial 64 meq Potassium Chloride 20 meq Calcium Gluconate 1 gm Magnesium Sulfate gm 1 gm Sodium Phosphate 21 mmol In Amino Acids 5 %/ Dextrose 20 % 1,000 ml @ 30 mls/hr IV .Q24H [facility] Rx #:[id number] Output: Urine 135 64 Stool 400 800 Other: Voiding Method Diaper Indwelling Catheter Indwelling Catheter Incontinent # Voids 2 - Exam GENERAL EXAM: Awake, alert 49-year-old male patient, on the mechanical ventilator, in no apparent distress. HEAD: Normocephalic. EYES: Normal reaction of pupils, equal size. NOSE: Clear with pink turbinates. THROAT: Tracheostomy tube secured in place. No erythema or exudates. NECK: No masses, no JVD. CHEST: No chest wall deformity. LUNGS: Equal air entry with coarse rhonchi bilaterally. CVS: S1 and S2 normal with no audible murmur, regular rhythm. ABDOMEN: Enterocutaneous fistula over the abdominal wall. No hepatosplenomegaly, normal bowel sounds. SPINE: No scoliosis or deformity SKIN: No rashes CENTRAL NERVOUS SYSTEM: No focal deficits, tone is normal in all 4 extremities. EXTREMITIES: Extensive muscle atrophy. Contractures. There is no peripheral edema. No clubbing, no cyanosis. Peripheral pulses are intact. - Labs CBC & Chem 7: 07/20/24 05:21 07/20/24 05:21 Labs: Abnormal Lab Results - Last 24 Hours (Table) 07/19/24 07/19/24 07/20/24 Range/Units 19:59 20:26 05:21 WBC (4.50-10.00) 10*3/uL Hgb (13.0-17.0) g/dL Hct (39.6-50.0) % MCH (27.0-32.0) pg MCHC (32.0-37.0) g/dL Neutrophils # (1.80-7.70) 10*3/uL Lymphocytes # (0.90-5.00) 10*3/uL Eosinophils # (0.04-0.35) 10*3/uL Sodium 136 L (137-145) mmol/L BUN 38 H (9-20) mg/dL Creatinine 0.57 L (0.66-1.25) mg/dL Glucose 116 H (74-99) mg/dL POC Glucose (mg/dL) 158 H 154 H (70-110) mg/dL Phosphorus 1.3 L (2.5-4.5) mg/dL Albumin 3.4 L (3.5-5.0) g/dL Procalcitonin (0.02-0.50) ng/mL Urine Protein (Negative) Urine Glucose (UA) (Negative) Urine Blood (Negative) Urine Bilirubin (Negative) Ur Leukocyte Esterase (Negative) Urine RBC (0-5) /hpf Urine WBC (0-5) /hpf Urine WBC Clumps (None) /hpf Calcium Oxalate Crystal (None) /hpf Hyaline Casts (0-2) /lpf Urine Mucus (None) /hpf Urine Yeast (Budding) (None) /hpf 07/20/24 07/20/24 07/20/24 Range/Units 05:21 05:21 06:01 WBC 10.56 H (4.50-10.00) 10*3/uL Hgb 11.4 L (13.0-17.0) g/dL Hct 38.9 L (39.6-50.0) % MCH 25.4 L (27.0-32.0) pg MCHC 29.3 L (32.0-37.0) g/dL Neutrophils # 9.08 H (1.80-7.70) 10*3/uL Lymphocytes # 0.88 L (0.90-5.00) 10*3/uL Eosinophils # 0.00 L (0.04-0.35) 10*3/uL Sodium (137-145) mmol/L BUN (9-20) mg/dL Creatinine (0.66-1.25) mg/dL Glucose (74-99) mg/dL POC Glucose (mg/dL) (70-110) mg/dL Phosphorus (2.5-4.5) mg/dL Albumin (3.5-5.0) g/dL Procalcitonin 1.05 H (0.02-0.50) ng/mL Urine Protein 2+ H (Negative) Urine Glucose (UA) Trace H (Negative) Urine Blood Large H (Negative) Urine Bilirubin 1+ H (Negative) Ur Leukocyte Esterase Large H (Negative) Urine RBC >182 H (0-5) /hpf Urine WBC >182 H (0-5) /hpf Urine WBC Clumps Many H (None) /hpf Calcium Oxalate Crystal Rare H (None) /hpf Hyaline Casts 80 H (0-2) /lpf Urine Mucus Many H (None) /hpf Urine Yeast (Budding) Moderate H (None) /hpf 07/20/24 07/20/24 Range/Units 06:31 11:34 WBC (4.50-10.00) 10*3/uL Hgb (13.0-17.0) g/dL Hct (39.6-50.0) % MCH (27.0-32.0) pg MCHC (32.0-37.0) g/dL Neutrophils # (1.80-7.70) 10*3/uL Lymphocytes # (0.90-5.00) 10*3/uL Eosinophils # (0.04-0.35) 10*3/uL Sodium (137-145) mmol/L BUN (9-20) mg/dL Creatinine (0.66-1.25) mg/dL Glucose (74-99) mg/dL POC Glucose (mg/dL) 134 H 181 H (70-110) mg/dL Phosphorus (2.5-4.5) mg/dL Albumin (3.5-5.0) g/dL Procalcitonin (0.02-0.50) ng/mL Urine Protein (Negative) Urine Glucose (UA) (Negative) Urine Blood (Negative) Urine Bilirubin (Negative) Ur Leukocyte Esterase (Negative) Urine RBC (0-5) /hpf Urine WBC (0-5) /hpf Urine WBC Clumps (None) /hpf Calcium Oxalate Crystal (None) /hpf Hyaline Casts (0-2) /lpf Urine Mucus (None) /hpf Urine Yeast (Budding) (None) /hpf Assessment and Plan Assessment: Acute on chronic hypoxemic and hypercapnic respiratory failure, mainly secondary to mucous plugging. Rapid response team was called on 07/19/2024 due to hypoxemia and hypotension. He was transferred to the ICU and placed back on the mechanical ventilator. Hypotension requiring fluid resuscitation Another extended stay within the hospital from June 19, 2024 to July 16, 2024 for multiple medical issues including a left lower lobe pneumonia. Bronchoscopy 06/22/2024 with cultures positive for Pseudomonas aeruginosa and corynebacterium striatum. Repeat bronchoscopy with BAL 07/04/2024 again with Pseudomonas aeruginosa. Most likely a colonizer. History of recurrent ventilator dependent respiratory failure, secondary to pneumonia and mucous plugging Tracheal stenosis History of sepsis, secondary to pneumonia Crohn's disease, with previous bowel perforation, status post colectomy and diverting ileostomy Tracheobronchomalacia History of DVT History of CVA/TIA Right below the knee amputation History of asystole/cardiac arrest, 2021 Plan: The patient was seen and evaluated Chest x-ray, labs and medications reviewed The patient is requiring ventilatory support again The patient has had multiple attempts at weaning We are recommending transferring to a tertiary care center He is familiar as a patient at [facility] Remains on TPN and lipids for nutritional support Remains on therapeutic Lovenox Continue bronchodilators Continue frequent suctioning as necessary Continue with fluid resuscitation Obtain a midline/PICC line We will continue to follow I have personally seen and examined the patient, performed the documentation and the assessment and plan as written. Number of minutes spent on the visit: 15 Dictation was produced using Flurry dictation software. Please excuse any grammatical, word or spelling errors.
[2024-07-20] MEDS: CEFTAZIDIME/AVIBACTAM 2.5 GM in SODIUM CHLORIDE 0.9% 100 ML IVPB SCH ×2 (13:27→14:55)
[2024-07-20 15:36] LABS: VBG PH 7.41 (7.31-7.41)
[2024-07-20] MEDS ORDERED: 1: MVI, ADULT NO.4 WITH VIT K 10 ML, TRACE (CONC-1ML/DOSE) 1 ML, SODIUM CHLORIDE 4MEQ/ML IV SCH (17:00)
[2024-07-20] MEDS: 1: MVI, ADULT NO.4 WITH VIT K 10 ML, TRACE (CONC-1ML/DOSE) 1 ML, SODIUM CHLORIDE 4MEQ/ML IV SCH (17:15)
--- NOTE | 2024-07-20 18:04 | P.PN ---
Subjective Progress Note Date: 07/20/24 This is a 49-year-old male with medical history significant for Crohn's disease with ileostomy maintained on TPN, tracheobronchomalacia with history of tracheal stenosis requiring tracheostomy placement. Patient also with history of stroke, DVT and chronic medical debility with contractures of his hands bilaterally, and right arm weakness. Patient has had prolonged hospital stay secondary to a Pseudomonas pneumonia and difficulty weaning off the ventilator. He was tolerating trach collar secretions had been improved and he completed a course of IV antibiotics and was discharged to [facility] for rehabilitation. He was brought back in from the [facility] with reports that he was too much care for t he long term staff. He is not a candidate for LTAC as he has been stable on the trach collar and he has no more select specialty days left this calendar year. Discussed with [employer] and they will provide the TPN and patient to be set up with visiting physicians. He was home again for 24 hours and came back to the hospital with complaints of difficulty breathing and sates the suctioning and trach care performed by his mother and son is not going well. He states he had increased secretions. He is not having any chest pains. He is awake and alert, oriented. He has a flat affect. He is unsure what to do and where to discharge to. Social work will be back on Saturday for follow up and assistance with DC planning. White blood cell count 8.96, hgb 12.6, sodium 139, potassium 4.8, BUN 28, creatinine 0.38. Glucose 124. He will be resumed on TPN through the PEG tube. 07/20/2024 Patient is evaluated today in follow up in the ICU. He had developed a suspected mucous plugging of the trach yesterday with respiratory distress and moved to the ICU. He is now on the ventilator with FiO2 of 60%. Chest xray this morning reveals left basilar linear atelectasis with similar right basilar airspace opa cities which may represent atelectasis versus infiltrates. Patient has been started on IV ceftazidime/avibactam with infectious disease and pulmonology following closely. Patient has been resumed on home TPN/Lipids. His ostomy is functioning and draining well. Patient and his mother are upset at the options available, he is unable to go to LTAC due to insurance issues. [facility] to [facility]ing issues and his high level of care. He was home for 24 hours and came back with increased secretions and mucous plugging. The patients mother when asked states she does not know what to do. He will be in the ICU at this time on IV antibiotics and will follow up tomorrow with social work and patient to discuss options and discharge planning needs. He was febrile overnight with T-max 100.3. Sputum culture was collected. White blood cell 10.56, hgb 11.4, BUN 136, potassium 5.0, BUN 38, creatinine 0.57, phos 1.3. Urine is significantly abnormal. Procalcitonin elevated at 1.05. REVIEW OF SYSTEMS: CONSTITUTIONAL: No fever, no malaise, no fatigue. HEENT: No recent visual problems or hearing problems. Denied any sore throat. CARDIOVASCULAR: No chest pain, orthopnea, PND, no palpitations, no syncope. PULMONARY: Reports shortness of breath and increased secretions GASTROINTESTINAL: No diarrhea, no nausea, no vomiting, no abdominal pain. NEUROLOGICAL: No headaches, no weakness, no numbness. PHYSICAL EXAMINATION: GENERAL: The patient is alert and oriented x3, not in any acute distress. Well developed, well nourished. HEENT: Pupils are round and equally reacting to light. EOMI. No scleral icterus. No conjunctival pallor. Normocephalic, atraumatic. No pharyngeal erythema. No thyromegaly. Trach in place. On the ventilator. CARDIOVASCULAR: S1 and S2 present. No murmurs, rubs, or gallops. PULMONARY: Chest is clear to auscultation, no wheezing or crackles. ABDOMEN: Soft, nontender, nondistended, normoactive bowel sounds. No palpable organomegaly. Ileostomy in place and functioning with liquid stools. MUSCULOSKELETAL: No joint swelling or deformity. EXTREMITIES: No cyanosis, clubbing, or pedal edema. Right BKA. NEUROLOGICAL: Gross neurological examination did not reveal any focal deficits. Contractures of hands bilaterally. SKIN: No rashes. Assessment and Plan - Acute on chronic hypoxemic and hypercapnic respiratory failure, mainly seco ndary to mucous plugging. S/P ateam and now requiring mechanical ventilator. - Prolonged hospital stay and vent dependency - Hypotension with concern for sepsis - Urinary tract infection, POA - Pseudomonas pneumonia history likely a colonizer; repeat sputum pending - Crohn's disease with ileostomy in the past patient is presently on TPN - Right sided otitis media resolved - Tracheobronchomalacia - CVA TIA - History of DVT - Chronic medical debility with contractures of hands bilaterally - Hx of right BKA GI prophylaxis DVT prophylaxis Plan Resume home medications Continue routine trach care with suctioning PRN Continue enteral feedings through PEG tube Ileostomy functioning Patient has been placed back on the mechanical ventilator due to mucous plugging and respiratory distress Continue bronchodilators Sputum culture has been repeated and currently pending ID on consultation and patient has been placed back on the IV ceftazidime/avibactam after completing 10 day course his last prolonged hospital stay Urine culture and blood cultures are pending Patient is status post 3L of normal saline and will continue at normal saline 75 mls/hr Pulmonary critical care recommended tertiary care center and will follow up with patient family and social work tomorrow regarding this Monitor electrolyes and renal function Social work on for discharge planning and will follow up Saturday. Patient states he was not doing well at home with family providing suctioning and trach care and states he couldn't breath. He came back in for discharge planning and trach care. The impression and plan of care has been dictated by Coral Medina, Nurse Practitioner as directed. Dr. Mo MD I have performed a history and physical examination and medical decision making of this patient, discussed the same with the dictator, and agree with the dictators assessment and plan as written, documented as a scribe. Based on total visit time, I have performed more than 50% of this visit. Objective - Vital Signs Vital signs: Vital Signs Temp 99.2 F 07/20/24 16:00 Pulse 101 H 07/20/24 17:00 Resp 26 H 07/20/24 17:00 BP 131/57 07/20/24 17:00 Pulse Ox 99 07/20/24 17:00 FiO2 40 07/20/24 17:00 Intake & Output 07/19/24 07/20/24 07/20/24 18:59 06:59 18:59 Intake Total 280 2319 3700 Output Total 525 495 7469 Balance -120 2184 2136 Weight 88.3 kg 88.3 kg Intake: IV 40 1965 3400 0.9 NS Bolus 1000 ACETAMINOPHEN IV (For NPO 100 ) 1,000 mg In Empty Bag 1 bag @ 400 mls/hr IVPB Q6HR PRN Rx#:[id number] Cefepime 2 gm In Dextrose 100 5% in Water 100 ml @ 25 mls/hr IVPB Q8H [facility] Rx#: [id number] Invasive Line 1 40 40 Magnesium Sulfate-D5w Pmx 200 1 gm In Dextrose/Water 1 100ml.bag @ 100 mls/hr IVPB Q1H [facility] Rx#: [id number] Sodium Chloride 0.9% 1, 425 1250 000 ml @ 125 mls/hr IV . Q8H [facility] Rx#:[id number] Sodium Chloride 0.9% 1, 1000 000 ml @ 999 mls/hr IV . Q1H1M [facility] Rx#:[id number] Sodium Chloride 0.9% 500 500 ml 500 ml @ 999 mls/hr IV .Q31M [facility] Rx#:[id number] Sodium Phosphate 30 mmol 250 In Dextrose 5% in Water 250 ml @ 65 mls/hr IVPB ONCE [facility] Rx#:[id number] Vancomycin 1,500 mg In 500 Sodium Chloride 0.9% 500 ml 500 ml @ 167 mls/hr IVPB Q16H [facility] Rx#: [id number] Oral 240 TPN/PPN 354 300 Fat Emulsion 20% 250 ml 84 In Empty Bag 1 bag @ 21 mls/hr IV Q72H [facility] Rx#: [id number] Mvi, Adult No.4 with Vit 270 300 K 10 ml Trace (Conc-1Ml/ Dose) 1 ml Sodium Chloride 4Meq/ml Vial 64 meq Potassium Chloride 20 meq Calcium Gluconate 1 gm Magnesium Sulfate gm 1 gm Sodium Phosphate 21 mmol In Amino Acids 5 %/ Dextrose 20 % 1,000 ml @ 30 mls/hr IV .Q24H [facility] Rx #:[id number] Output: Urine 135 314 Stool 400 1250 Other: Voiding Method Diaper Indwelling Catheter Indwelling Catheter Incontinent # Voids 2 - Labs CBC & Chem 7: 07/20/24 05:21 07/20/24 05:21 Labs: Abnormal Lab Results - Last 24 Hours (Table) 07/19/24 07/19/24 07/20/24 Range/Units 19:59 20:26 05:21 WBC (4.50-10.00) 10*3/uL Hgb (13.0-17.0) g/dL Hct (39.6-50.0) % MCH (27.0-32.0) pg MCHC (32.0-37.0) g/dL Neutrophils # (1.80-7.70) 10*3/uL Lymphocytes # (0.90-5.00) 10*3/uL Eosinophils # (0.04-0.35) 10*3/uL Sodium 136 L (137-145) mmol/L BUN 38 H (9-20) mg/dL Creatinine 0.57 L (0.66-1.25) mg/dL Glucose 116 H (74-99) mg/dL POC Glucose (mg/dL) 158 H 154 H (70-110) mg/dL Phosphorus 1.3 L (2.5-4.5) mg/dL Albumin 3.4 L (3.5-5.0) g/dL Procalcitonin (0.02-0.50) ng/mL Urine Protein (Negative) Urine Glucose (UA) (Negative) Urine Blood (Negative) Urine Bilirubin (Negative) Ur Leukocyte Esterase (Negative) Urine RBC (0-5) /hpf Urine WBC (0-5) /hpf Urine WBC Clumps (None) /hpf Calcium Oxalate Crystal (None) /hpf Hyaline Casts (0-2) /lpf Urine Mucus (None) /hpf Urine Yeast (Budding) (None) /hpf 07/20/24 07/20/24 07/20/24 Range/Units 05:21 05:21 06:01 WBC 10.56 H (4.50-10.00) 10*3/uL Hgb 11.4 L (13.0-17.0) g/dL Hct 38.9 L (39.6-50.0) % MCH 25.4 L (27.0-32.0) pg MCHC 29.3 L (32.0-37.0) g/dL Neutrophils # 9.08 H (1.80-7.70) 10*3/uL Lymphocytes # 0.88 L (0.90-5.00) 10*3/uL Eosinophils # 0.00 L (0.04-0.35) 10*3/uL Sodium (137-145) mmol/L BUN (9-20) mg/dL Creatinine (0.66-1.25) mg/dL Glucose (74-99) mg/dL POC Glucose (mg/dL) (70-110) mg/dL Phosphorus (2.5-4.5) mg/dL Albumin (3.5-5.0) g/dL Procalcitonin 1.05 H (0.02-0.50) ng/mL Urine Protein 2+ H (Negative) Urine Glucose (UA) Trace H (Negative) Urine Blood Large H (Negative) Urine Bilirubin 1+ H (Negative) Ur Leukocyte Esterase Large H (Negative) Urine RBC >182 H (0-5) /hpf Urine WBC >182 H (0-5) /hpf Urine WBC Clumps Many H (None) /hpf Calcium Oxalate Crystal Rare H (None) /hpf Hyaline Casts 80 H (0-2) /lpf Urine Mucus Many H (None) /hpf Urine Yeast (Budding) Moderate H (None) /hpf 07/20/24 07/20/24 Range/Units 06:31 11:34 WBC (4.50-10.00) 10*3/uL Hgb (13.0-17.0) g/dL Hct (39.6-50.0) % MCH (27.0-32.0) pg MCHC (32.0-37.0) g/dL Neutrophils # (1.80-7.70) 10*3/uL Lymphocytes # (0.90-5.00) 10*3/uL Eosinophils # (0.04-0.35) 10*3/uL Sodium (137-145) mmol/L BUN (9-20) mg/dL Creatinine (0.66-1.25) mg/dL Glucose (74-99) mg/dL POC Glucose (mg/dL) 134 H 181 H (70-110) mg/dL Phosphorus (2.5-4.5) mg/dL Albumin (3.5-5.0) g/dL Procalcitonin (0.02-0.50) ng/mL Urine Protein (Negative) Urine Glucose (UA) (Negative) Urine Blood (Negative) Urine Bilirubin (Negative) Ur Leukocyte Esterase (Negative) Urine RBC (0-5) /hpf Urine WBC (0-5) /hpf Urine WBC Clumps (None) /hpf Calcium Oxalate Crystal (None) /hpf Hyaline Casts (0-2) /lpf Urine Mucus (None) /hpf Urine Yeast (Budding) (None) /hpf Assessment and Plan Time with Patient: Greater than 30
[2024-07-20 18:09] LABS: Glucose,Whole Blood 119 mg/dL (70-110)
[2024-07-20] MEDS: ONDANSETRON 4 MG/2 ML VIAL IVP PRN (21:04)
--- NOTE | 2024-07-20 21:58 | P.CONS ---
History of Present Illness - Reason for Consult Consult date: 07/20/24 Sepsis Requesting physician: Gunnar Ramos - Chief Complaint Shortness of breath and low O2 sats x 1 day - History of Present Illness Patient is a 49-year-old male with multiple comorbidities including Crohn's disease status post colectomy diverting ileostomy tracheobronchomalacia CVA TIA cardiac arrest and history of recurrent pneumonias secondary to mucous plugging patient was recently discharged from this facility to the [facility] on 07/16/2024 who subsequently sent the patient back to the ER within a few hours from July the patient was discharged home patient has been brought back to the hospital on 07/19/2024 for evaluation of increasing shortness of breath and low pulse ox apparently the patient seem to have probably mucous plugging patient was initially admitted to the third floor from July the patient did have worsening of his respiratory status the patient also spiked a fever of 101.1 F at midnight as well as at 8 AM patient subsequently has been brought to the ICU ended up getting intubated patient is current not requiring any pressor support patient did have a white count of 10.56 creatinine 0.57 liver enzymes are normal procalcitonin is 1.05 urine has been positive patient was started on vancomycin and cefepime infectious disease was consulted for sepsis, most information has been obtained from review the chart and talking to the mother at the bedside and the patient is currently intubated on the vent and cannot provide any history Patient did have a chest x-ray on admission and mild lateral lung base patchy airspace opacity concerning for infiltrate versus atelectasis with a chest x-ray on this morning left basilar linear atelectasis with similar right basilar airspace opacity Review of Systems Positive points has been mentioned in HPI complete review could not be obtained because of his underlying mental status Past Medical History Past Medical History: CVA/TIA, Deep Vein Thrombosis (DVT) Additional Past Medical History / Comment(s): Progressing left upper thigh pain and swelling and left leg weakness. 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 Crohns. Ostomy Bag placed in 09/2021. History of Any Multi-Drug Resistant Organisms: MRSA, Other MDRO Year Discovered:: 07/07/24-Other MDRO; 12/14/23-MRSA MDRO Source:: Other MDRO - sputum, BAL; MRSA- nasal Past Surgical History: Cholecystectomy, Orthopedic Surgery Additional Past Surgical History / Comment(s): Arm surgery, right leg below knee amputation, ostomy (2021), bronch 06/2024 Past Anesthesia/Blood Transfusion Reactions: No Reported Reaction Additional Past Anesthesia/Blood Transfusion Reaction / Comm: recalled from previous admission Smoking Status: Former smoker - Past Family History Father Additional Family Medical History / Comment(s): DAD IN HIS TWENTIES - CAUSE UNKNOWN. Mother Family Medical History: Diabetes Mellitus Brother(s) Family Medical History: Cancer Additional Family Medical History / Comment(s): Kidney cancer as a baby. Medications and Allergies Home Medications Medication Instructions Recorded Confirmed Type Pantoprazole [Protonix] 40 mg PO BID 07/07/22 07/18/24 History Enoxaparin [Lovenox] 90 mg SQ Q12H 06/19/24 07/18/24 History Folic Acid 1 mg PO DAILY 06/19/24 07/18/24 History Loperamide HCl [Imodium A-D] 4 mg PO TID 06/19/24 07/18/24 History Thiamine [Vitamin B-1] 100 mg PO DAILY 06/19/24 07/18/24 History Furosemide [Lasix] 20 mg PO DAILY 30 Days #30 tab 07/14/24 07/18/24 Rx busPIRone HCl [Buspar] 15 mg PO BID 30 Days #60 tab 07/14/24 07/18/24 Rx Ciprofloxacin Ophth Soln [Cipro 1 drops LEFT EYE Q4HR 5 Days #5 ml 07/17/24 07/18/24 Rx 0.3% Ophth Soln] HYDROcodone/APAP 5-325MG [Cocoa 1 tab PO Q6H PRN 07/17/24 07/18/24 History 5-325] Allergies Allergy/AdvReac Type Severity Reaction Status Date / Time piperacillin [From Zosyn] Allergy Rash/Hives Verified 07/18/24 17:03 tazobactam [From Zosyn] Allergy Rash/Hives Verified 07/18/24 17:03 Physical Exam Vitals: Vital Signs Temp Pulse Pulse Resp BP BP Pulse Ox 07/20/24 11:00 93 20 70/42 100 07/20/24 10:45 98 20 86/55 05/05/25 10:30 100 20 92/53 100 05/05/25 10:15 101 H 20 90/59 100 05/05/25 10:00 110 H 20 100/64 98 05/05/25 09:45 109 H 22 89/53 98 05/05 09:00 113 H 21 85/51 0505 08:49 113 H 05 08:20 112 H 0505 08:19 05 08:00 101.1 F H 115 H 20 87/49 100 05/05 07:30 112 H 20 92/56 94 L 0505 07:15 112 H 20 90/57 05/05 07:00 113 H 21 96/62 91 L 0505 06:45 113 H 28 H 109/61 94 L 0505 06:44 0505 06:30 113 H 20 114/71 05/05 06:15 112 H 22 100/64 96 05/05 06:00 108 H 20 100/63 05/05 05:45 111 H 21 103/58 05/05/25 05:30 112 H 20 100 05/0525 05:15 107 H 20 99/60 99 05/05/25 05:00 106 H 20 106/66 99 05/05/25 04:45 106 H 20 91/47 100 05/05/25 04:30 102 H 20 89/57 99 05/05/25 04:15 102 H 20 76/47 100 05/05/25 04:12 05/05 04:00 99.9 F H 104 H 20 72/50 98 05/05/25 03:45 108 H 20 97/61 98 05/05/25 03:30 105 H 19 84/53 97 05/05/25 03:15 105 H 20 89/56 99 05/05/25 03:00 100 20 90/55 98 05/05/25 02:45 100 21 94/60 05/05/25 02:30 105 H 20 89/58 05/05/25 02:15 104 H 21 72/51 97 05/05/25 02:00 110 H 20 83/36 96 05/05/25 01:45 110 H 20 78/55 97 05/05/25 01:30 100.3 F H 109 H 20 84/56 95 05/05 01:15 111 H 20 77/56 94 L 0505 01:00 106 H 20 87/55 94 L 05 00:50 109 H 20 87/55 94 L 07/20/24 00:40 111 H 21 89/67 93 L 07/20/24 00:30 112 H 20 91/60 92 L 05 00:28 05 00:20 108 H 20 91/60 93 L 05 00:10 109 H 20 102/62 91 L 05 00:00 101.1 F H 105 H 28 H 99/66 96 07/19/24 23:50 105 H 20 99/66 98 07/19/24 23:40 105 H 20 98/72 97 07/19/24 23:30 103 H 23 105/71 98 07/19/24 23:20 105 H 20 105/71 100 07/19/24 23:10 105 H 20 98/61 99 07/19/24 23:00 102 H 20 102/62 99 07/19/24 22:50 104 H 20 102/62 99 07/19/24 22:40 102 H 20 105/60 99 04 22:30 101 H 20 97/68 100 07/19/24 22:22 101 H 19 97/68 98 07/19/24 22:20 100 20 97/68 98 07/19/24 22:10 97 20 106/51 98 07/19/24 22:00 94 20 97/78 97 07/19/24 21:50 90 20 97/78 95 07/19/24 21:40 86 13 95 07/19/24 21:30 87 20 75/62 93 L 07/19/24 21:20 82 20 75/62 94 L 07/19/24 21:10 19 91/58 94 L 07/19/24 21:00 85 20 100/50 91 L 07/19/24 20:50 85 20 87/53 90 L 07/19/24 20:43 07/19/24 20:40 85 20 87/53 91 L 07/19/24 20:30 85 19 97/43 96 07/19/24 20:26 82 24 94 L 07/19/24 16:44 88 18 07/19/24 16:32 101 H 07/19/24 15:55 07/19/24 15:49 98.7 F 92 17 149/71 94 L 07/19/24 12:05 98 FiO2 07/20/24 11:00 60 07/20/24 10:45 07/20/24 10:30 07/20/24 10:15 07/20/24 10:00 60 07/20/24 09:45 05 09:00 60 07/20/24 08:49 05 08:20 05 08:19 60 07/20/24 08:00 60 07/20/24 07:30 07/20/24 07:15 07/20/24 07:00 07/20/24 06:45 07/20/24 06:44 60 07/20/24 06:30 07/20/24 06:15 07/20/24 06:00 07/20/24 05:45 05 05:30 05 05:15 07/20/24 05:00 07/20/24 04:45 05 04:30 05 04:15 05 04:12 80 05 04:00 70 07/20/24 03:45 05 03:30 05 03:15 05 03:00 07/20/24 02:45 07/20/24 02:30 05 02:15 07/20/24 02:00 07/20/24 01:45 07/20/24 01:30 05 01:15 05 01:00 05 00:50 05 00:40 05 00:30 05 00:28 80 05 00:20 05 00:10 05 00:00 70 07/19/24 23:50 07/19/24 23:40 07/19/24 23:30 07/19/24 23:20 07/19/24 23:10 07/19/24 23:00 07/19/24 22:50 07/19/24 22:40 07/19/24 22:30 07/19/24 22:22 07/19/24 22:20 07/19/24 22:10 07/19/24 22:00 07/19/24 21:50 07/19/24 21:40 07/19/24 21:30 07/19/24 21:20 07/19/24 21:10 07/19/24 21:00 07/19/24 20:50 07/19/24 20:43 100 07/19/24 20:40 07/19/24 20:30 07/19/24 20:26 07/19/24 16:44 07/19/24 16:32 07/19/24 15:55 40 07/19/24 15:49 40 07/19/24 12:05 60 Intake and Output 07/19/24 07/20/24 07/20/24 22:59 06:59 14:59 Intake Total 51 2268 2825 Output Total 500 35 864 Balance -449 2233 1961 Intake: IV 1965 2675 0.9 NS Bolus 1000 ACETAMINOPHEN IV (For NPO 100 ) 1,000 mg In Empty Bag 1 bag @ 400 mls/hr IVPB Q6HR PRN Rx#:[id number] Cefepime 2 gm In Dextrose 100 5% in Water 100 ml @ 25 mls/hr IVPB Q8H [facility] Rx#: [id number] Invasive Line 1 40 Magnesium Sulfate-D5w Pmx 100 1 gm In Dextrose/Water 1 100ml.bag @ 100 mls/hr IVPB Q1H [facility] Rx#: [id number] Sodium Chloride 0.9% 1, 425 625 000 ml @ 125 mls/hr IV . Q8H [facility] Rx#:[id number] Sodium Chloride 0.9% 1, 1000 000 ml @ 999 mls/hr IV . Q1H1M [facility] Rx#:[id number] Sodium Chloride 0.9% 500 500 ml 500 ml @ 999 mls/hr IV .Q31M [facility] Rx#:[id number] Sodium Phosphate 30 mmol 250 In Dextrose 5% in Water 250 ml @ 65 mls/hr IVPB ONCE ONE Rx#:[id number] Vancomycin 1,500 mg In 500 Sodium Chloride 0.9% 500 ml 500 ml @ 167 mls/hr IVPB Q16H [facility] Rx#: [id number] TPN/PPN 51 303 150 Fat Emulsion 20% 250 ml 21 63 In Empty Bag 1 bag @ 21 mls/hr IV Q72H [facility] Rx#: [id number] Mvi, Adult No.4 with Vit 30 240 150 K 10 ml Trace (Conc-1Ml/ Dose) 1 ml Sodium Chloride 4Meq/ml Vial 64 meq Potassium Chloride 20 meq Calcium Gluconate 1 gm Magnesium Sulfate gm 1 gm Sodium Phosphate 21 mmol In Amino Acids 5 %/ Dextrose 20 % 1,000 ml @ 30 mls/hr IV .Q24H [facility] Rx #:[id number] Output: Urine 100 35 64 Stool 400 800 Other: Voiding Method Indwelling Catheter Indwelling Catheter Weight 88.3 kg GENERAL DESCRIPTION: Middle-age male male intubated on the vent through the trach HEENT: Shows Pallor , no scleral icterus. Oral mucous membrane is dry. NECK: Trachea central, no thyromegaly. LUNGS: Unlabored breathing. Coarse breath sounds bilaterally HEART: S1, S2, regular rate and rhythm. No loud murmur ABDOMEN: Soft, no tenderness , guarding or rigidity, no organomegaly EXTREMITIES: No edema of feet. SKIN: No rash, no masses palpable. NEUROLOGICAL: The patient is sedated on the vent Results CBC & Chem 7: 07/20/24 05:21 07/20/24 05:21 Labs: Abnormal Lab Results - Last 24 Hours (Table) 07/19/24 07/19/24 07/20/24 Range/Units 19:59 20:26 05:21 WBC (4.50-10.00) 10*3/uL Hgb (13.0-17.0) g/dL Hct (39.6-50.0) % MCH (27.0-32.0) pg MCHC (32.0-37.0) g/dL Neutrophils # (1.80-7.70) 10*3/uL Lymphocytes # (0.90-5.00) 10*3/uL Eosinophils # (0.04-0.35) 10*3/uL Sodium 136 L (137-145) mmol/L BUN 38 H (9-20) mg/dL Creatinine 0.57 L (0.66-1.25) mg/dL Glucose 116 H (74-99) mg/dL POC Glucose (mg/dL) 158 H 154 H (70-110) mg/dL Phosphorus 1.3 L (2.5-4.5) mg/dL Albumin 3.4 L (3.5-5.0) g/dL Procalcitonin (0.02-0.50) ng/mL Urine Protein (Negative) Urine Glucose (UA) (Negative) Urine Blood (Negative) Urine Bilirubin (Negative) Ur Leukocyte Esterase (Negative) Urine RBC (0-5) /hpf Urine WBC (0-5) /hpf Urine WBC Clumps (None) /hpf Calcium Oxalate Crystal (None) /hpf Hyaline Casts (0-2) /lpf Urine Mucus (None) /hpf Urine Yeast (Budding) (None) /hpf 07/20/24 07/20/24 07/20/24 Range/Units 05:21 05:21 06:01 WBC 10.56 H (4.50-10.00) 10*3/uL Hgb 11.4 L (13.0-17.0) g/dL Hct 38.9 L (39.6-50.0) % MCH 25.4 L (27.0-32.0) pg MCHC 29.3 L (32.0-37.0) g/dL Neutrophils # 9.08 H (1.80-7.70) 10*3/uL Lymphocytes # 0.88 L (0.90-5.00) 10*3/uL Eosinophils # 0.00 L (0.04-0.35) 10*3/uL Sodium (137-145) mmol/L BUN (9-20) mg/dL Creatinine (0.66-1.25) mg/dL Glucose (74-99) mg/dL POC Glucose (mg/dL) (70-110) mg/dL Phosphorus (2.5-4.5) mg/dL Albumin (3.5-5.0) g/dL Procalcitonin 1.05 H (0.02-0.50) ng/mL Urine Protein 2+ H (Negative) Urine Glucose (UA) Trace H (Negative) Urine Blood Large H (Negative) Urine Bilirubin 1+ H (Negative) Ur Leukocyte Esterase Large H (Negative) Urine RBC >182 H (0-5) /hpf Urine WBC >182 H (0-5) /hpf Urine WBC Clumps Many H (None) /hpf Calcium Oxalate Crystal Rare H (None) /hpf Hyaline Casts 80 H (0-2) /lpf Urine Mucus Many H (None) /hpf Urine Yeast (Budding) Moderate H (None) /hpf 07/20/24 Range/Units 06:31 WBC (4.50-10.00) 10*3/uL Hgb (13.0-17.0) g/dL Hct (39.6-50.0) % MCH (27.0-32.0) pg MCHC (32.0-37.0) g/dL Neutrophils # (1.80-7.70) 10*3/uL Lymphocytes # (0.90-5.00) 10*3/uL Eosinophils # (0.04-0.35) 10*3/uL Sodium (137-145) mmol/L BUN (9-20) mg/dL Creatinine (0.66-1.25) mg/dL Glucose (74-99) mg/dL POC Glucose (mg/dL) 134 H (70-110) mg/dL Phosphorus (2.5-4.5) mg/dL Albumin (3.5-5.0) g/dL Procalcitonin (0.02-0.50) ng/mL Urine Protein (Negative) Urine Glucose (UA) (Negative) Urine Blood (Negative) Urine Bilirubin (Negative) Ur Leukocyte Esterase (Negative) Urine RBC (0-5) /hpf Urine WBC (0-5) /hpf Urine WBC Clumps (None) /hpf Calcium Oxalate Crystal (None) /hpf Hyaline Casts (0-2) /lpf Urine Mucus (None) /hpf Urine Yeast (Budding) (None) /hpf Assessment and Plan (1) Pneumonia Current Visit: No Status: Acute Code(s): J18.9 - PNEUMONIA, UNSPECIFIED ORGANISM SNOMED Code(s): 692201608 (2) Sepsis Current Visit: No Status: Acute Code(s): A41.9 - SEPSIS, UNSPECIFIED ORGANISM SNOMED Code(s): 08340423 Plan: 1patient with sepsis in this patient who did have fever tachycardia elevated white count meeting currently for SIRS source is likely pneumonia etiology could be mucous plugging and inadequate suction in the outpatient setting plus minus a catheter associated as a patient also significantly positive UA. 2sputum culture has been requested blood cultures obtained need to change his [place] catheter obtain urine culture from the new [place] 3patient to continue with the vancomycin however we will switch cefepime to Avycaze as the patient recently did have a MDRO Pseudomonas in the sputum on his last admission Mother at the bedside multiple question answered We will follow on clinical condition and cultures to further adjust medication if needed Thank you for this consultation we will follow the patient along with you Dictation was produced using [employer] dictation software. please excuse any grammatical, word or spelling errors. Time with Patient: Greater than 30
[2024-07-20 23:57] LABS: Glucose,Whole Blood 149 mg/dL (70-110)
[2024-07-21] MEDS: SODIUM CHLORIDE 0.9% 500 ML 500 ML IV SCH (01:00)
[2024-07-21 06:27] LABS: Basophils # (A) 0.04 10*3/uL (0.00-0.10); Basophils % (A) 0.4 %; Eosinophils # (A) 0.11 10*3/uL (0.04-0.35); Eosinophils % (A) 1.1 %; HCT 30.2 % (39.6-50.0); Lymphocytes # (A) 1.71 10*3/uL (0.90-5.00); Lymphocytes % (A) 16.5 %; MCH 25.1 pg (27.0-32.0); MCHC 29.1 g/dL (32.0-37.0); Mean Platelet Volume 12.7 fL (9.5-12.2); Monocytes # (A) 0.73 10*3/uL (0.20-1.00); Neutrophils # (A) 7.75 10*3/uL (1.80-7.70); Neutrophils % (A) 74.7 %; Platelet Count 160 10*3/uL (140-440); RBC 3.51 10*6/uL (4.40-5.60); RDW 16.7 % (11.5-14.5); WBC 10.37 10*3/uL (4.50-10.00)
[2024-07-21 06:29] LABS: HGB 8.8 g/dL (13.0-17.0)
[2024-07-21 06:35] LABS: African American GFR (CKD) >90 (>60 ml/min/1.73 sqM); Anion Gap 7 mmol/L; Blood Urea Nitrogen 25 mg/dL (9-20); Calcium 7.9 mg/dL (8.4-10.2); Carbon Dioxide 23 mmol/L (22-30); Chloride 111 mmol/L (98-107); Glucose 72 mg/dL (74-99); Non-African American GFR(CKD) >90 (>60 ml/min/1.73 sqM); Sodium 141 mmol/L (137-145)
[2024-07-21 06:39] LABS: Phosphorus 2.5 mg/dL (2.5-4.5); Potassium 2.9 mmol/L (3.5-5.1)
--- NOTE | 2024-07-21 07:47 | XR ---
EXAMINATION TYPE: XR chest 1V portable DATE OF EXAM: 07/21/2024 5:21 AM COMPARISON: Multiple radiographs, with the most recent on 07/20/2024 TECHNIQUE: XR chest 1V portable Portable AP radiograph of the chest. CLINICAL INDICATION:Male, 49 years old with history of Tube placement; FINDINGS: Lungs/Pleura: No pleural effusion or pneumothorax. No focal consolidation. Similar subtle left basila r airspace opacities. Similar medial right basilar airspace opacities. Pulmonary vascularity: Unremarkable. Heart/mediastinum: Cardiomediastinal silhouette is unremarkable. Musculoskeletal: No acute osseous pathology. Other findings: Surgical clips within the right supraclavicular region. Lines/Tubes: Left IJ approach central venous catheter with distal tip at the superior cavoatrial junction. Tracheostomy cannula is in stable position. IMPRESSION: 1. Similar bibasilar airspace opacities which may represent atelectasis versus infiltrates. 2. Stable support lines and tubes. [facility], , 07/21/2024 7:44 AM
[2024-07-21 08:24] LABS: Basophils # (A) 0.03 10*3/uL (0.00-0.10); Basophils % (A) 0.3 %; Eosinophils # (A) 0.08 10*3/uL (0.04-0.35); Eosinophils % (A) 0.9 %; HCT 29.2 % (39.6-50.0); HGB 8.6 g/dL (13.0-17.0); Lymphocytes # (A) 1.06 10*3/uL (0.90-5.00); Lymphocytes % (A) 12.3 %; MCH 25.3 pg (27.0-32.0); MCHC 29.5 g/dL (32.0-37.0); MCV 85.9 fL (80.0-97.0); Mean Platelet Volume 12.9 fL (9.5-12.2); Monocytes # (A) 0.49 10*3/uL (0.20-1.00); Monocytes % (A) 5.7 %; Neutrophils # (A) 6.94 10*3/uL (1.80-7.70); Neutrophils % (A) 80.5 %; Platelet Count 139 10*3/uL (140-440); RDW 16.6 % (11.5-14.5); WBC 8.63 10*3/uL (4.50-10.00)
[2024-07-21 08:31] LABS: ALT 29 U/L (4-49); AST 21 U/L (17-59); African American GFR (CKD) >90 (>60 ml/min/1.73 sqM); Albumin 2.7 g/dL (3.5-5.0); Alkaline Phosphatase 65 U/L (38-126); Anion Gap 7 mmol/L; Blood Urea Nitrogen 25 mg/dL (9-20); Calcium 8.3 mg/dL (8.4-10.2); Carbon Dioxide 23 mmol/L (22-30); Chloride 110 mmol/L (98-107); Glucose 175 mg/dL (74-99); Non-African American GFR(CKD) >90 (>60 ml/min/1.73 sqM); Sodium 140 mmol/L (137-145); Total Bilirubin 1.6 mg/dL (0.2-1.3); Total Protein 6.4 g/dL (6.3-8.2)
[2024-07-21 08:33] LABS: Potassium 2.5 mmol/L (3.5-5.1)
[2024-07-21] MEDS ORDERED: Potassium Replacement Protocol 1 EACH MISC MISCELLANE PRN (08:39)
[2024-07-21] MEDS: POTASSIUM CHLORIDE 20 MEQ in WATER FOR INJECTION 1 100ML.BAG IVPB STA (08:53)
[2024-07-21] MEDS: POTASSIUM CHLORIDE 20 MEQ in WATER FOR INJECTION 1 100ML.BAG IVPB ONE (10:55)
--- NOTE | 2024-07-21 11:07 | P.PN ---
Subjective Progress Note Date: 07/21/24 This is a 49-year-old male patient with a known history of recurrent ventilatory dependent respiratory failure secondary to pneumonias and mucous plugging, Crohn's disease, status post colectomy and diverting ileostomy, tracheobronchomalacia, DVT, CVA/TIA, right below the knee amputation, history of cardiac arrest in 2021. He was recently treated for Pseudomonas aeruginosa and corynebacterium stratum noted on bronchoscopy wash from 07/04/2024. He was on and off the ventilator throughout his stay wean admission on 06/19/2024 to discharge on 07/16/2024 to [facility]. Discharge planning had worked hard on finding a bed for him. All of his hospital stay information was reviewed with their liaison who accepted the patient. He has used up all his long-term acute care days. [facility] received the patient on 07/16/2024 and only kept him maybe a few hours and sent him back here to the emergency room stating they are unable to take care of him. We saw the patient on consultation on 07/17/2024, and considering the patient was doing fairly well, we recommended that the patient could be discharged home. However patient came back yesterday with recurrent episodes of shortness of breath, possibly related to worsening tracheal secretions and possibly sometimes mucous plugging. We saw the patient again today, he seems to be very comfortable, not in any distress, on trach collar, and his chest x-ray showed mostly minimal atelectasis no clear-cut evidence of pneumonia. Patient had a relatively normal CBC with WBC count of 8.9 hemoglobin 12.6 electrolytes are normal renal profile is normal, we believe the patient was mostly readmitted only because of placement issues. The patient is seen today July 20, 2024 in follow-up in the intensive care unit. Transferred here from 3 . after a rapid response team was called on him for worsening shortness of breath and hypotension. He was placed back on mechanical ventilator. Current settings assist-control mode at a rate of 20, tidal volume 500, FiO2 60% and a PEEP of 5. Blood gases unable to be obtained per respiratory therapy. White count 10.5. Hemoglobin 11.4. Platelets 185. Sodium 136. Potassium 5.0. Bicarb 27. BUN 38. Creatinine 0.57. Glucose 116. Procalcitonin 1.05. Urinalysis with large leukocyte Estrace, high WBCs, high RBCs. Culture pending. Current temperature 101.1. Chest x-ray reveals left basilar linear atelectasis with some similar right basilar airspace opacities. Left IJ approach dual-lumen PICC line in place. Tracheostomy cannula in stable position. He remains on DuoNeb inhalations. Receiving TPN currently at 30 mL/h with a goal of 95 mL/h. Lipids every 72 hours. He remains on therapeutic Lovenox at 90 mg SQ every 12 hours. Continued on vancomycin and Avycaz. The patient is seen today July 21, 2024 in follow-up in the intensive care unit. He is currently awake and alert. Not requiring any sedation. He remains on the mechanical ventilator currently on assist-control mode with a tidal volume of 500, FiO2 30% and a PEEP of 5. He remains on antibiotics in the form of vancomycin and Avycaz. Receiving normal saline at 75 mL/h. Electrolytes are being replaced. He is on TPN at 95 mL/h. Lipids every 72 hours. Urine culture revealed no growth. Sputum culture pending. White count 8.6. Hemoglobin 8.6. Platelets 139. Sodium 140. Potassium 2.5. Bicarb 23. BUN 25. Creatinine 0.35. AST 21. ALT 29. He remains on therapeutic Lovenox. He is currently afebrile. Hemodynamically stable. Objective - Vital Signs Vital signs: Vital Signs Temp 99.1 F 07/21/24 08:00 Pulse 84 07/21/24 10:00 Resp 20 07/21/24 10:00 BP 116/51 07/21/24 10:00 Pulse Ox 97 07/21/24 10:00 FiO2 40 07/21/24 08:00 Intake & Output 07/20/24 07/21/24 07/21/24 18:59 06:59 18:59 Intake Total 4140 2741 510 Output Total 1714 1455 185 Balance 2426 1286 325 Weight 88.3 kg 93.4 kg Intake: IV 3650 1601 225 ACETAMINOPHEN IV (For NPO 100 ) 1,000 mg In Empty Bag 1 bag @ 400 mls/hr IVPB Q6HR PRN Rx#:[id number] Cefepime 2 gm In Dextrose 100 5% in Water 100 ml @ 25 mls/hr IVPB Q8H [facility] Rx#: [id number] Ceftazidime/Avibactam 2.5 100 gm In Sodium Chloride 0. 9% 100 ml @ 50 mls/hr IVPB Q8H [facility] Rx#: [id number] Magnesium Sulfate-D5w Pmx 200 1 gm In Dextrose/Water 1 100ml.bag @ 100 mls/hr IVPB Q1H [facility] Rx#: [id number] Sodium Chloride 0.9% 1, 1500 1000 225 000 ml @ 125 mls/hr IV . Q8H [facility] Rx#:[id number] Sodium Chloride 0.9% 1, 1000 000 ml @ 999 mls/hr IV . Q1H1M [facility] Rx#:[id number] Sodium Phosphate 30 mmol 250 In Dextrose 5% in Water 250 ml @ 65 mls/hr IVPB ONCE [facility] Rx#:[id number] Vancomycin 1,500 mg In 500 501 Sodium Chloride 0.9% 500 ml 500 ml @ 167 mls/hr IVPB Q16H [facility] Rx#: [id number] TPN/PPN 490 1140 285 Mvi, Adult No.4 with Vit 190 1140 285 K 10 ml Trace (Conc-1Ml/ Dose) 1 ml Sodium Chloride 4Meq/ml Vial 64 meq Potassium Chloride 10 meq Calcium Gluconate 1 gm Magnesium Sulfate gm 1 gm Sodium Phosphate 21 mmol In Amino Acids 5 %/ Dextrose 20 % 1,000 ml @ 95 mls/hr IV .BY DURATION [facility] Rx#:[id number] Mvi, Adult No.4 with Vit 300 K 10 ml Trace (Conc-1Ml/ Dose) 1 ml Sodium Chloride 4Meq/ml Vial 64 meq Potassium Chloride 20 meq Calcium Gluconate 1 gm Magnesium Sulfate gm 1 gm Sodium Phosphate 21 mmol In Amino Acids 5 %/ Dextrose 20 % 1,000 ml @ 30 mls/hr IV .Q24H [facility] Rx #:[id number] Output: Urine 464 1005 185 Stool 1250 450 Other: Voiding Method Indwelling Catheter Indwelling Catheter Indwelling Catheter - Exam GENERAL EXAM: Awake, alert 49-year-old male, on the mechanical ventilator, in no apparent distress. HEAD: Normocephalic. EYES: Normal reaction of pupils, equal size. NOSE: Clear with pink turbinates. THROAT: Tracheostomy tube secured in place. No erythema or exudates. NECK: No masses, no JVD. CHEST: No chest wall deformity. LUNGS: Equal air entry with coarse rhonchi bilaterally. CVS: S1 and S2 normal with no audible murmur, regular rhythm. ABDOMEN: Enterocutaneous fistula over the abdominal wall. No hepatosplenomegaly, normal bowel sounds. SPINE: No scoliosis or deformity SKIN: No rashes CENTRAL NERVOUS SYSTEM: No focal deficits, tone is normal in all 4 extremities. EXTREMITIES: Extensive muscle atrophy. Contractures. There is no peripheral edema. No clubbing, no cyanosis. Peripheral pulses are intact. - Labs CBC & Chem 7: 07/21/24 07:55 07/21/24 07:55 Labs: Abnormal Lab Results - Last 24 Hours (Table) 07/20/24 07/20/24 07/20/24 Range/Units 05:21 11:34 18:07 WBC (4.50-10.00) 10*3/uL RBC (4.40-5.60) 10*6/uL Hgb (13.0-17.0) g/dL Hct (39.6-50.0) % MCH (27.0-32.0) pg MCHC (32.0-37.0) g/dL Plt Count (140-440) 10*3/uL MPV (9.5-12.2) fL Neutrophils # (1.80-7.70) 10*3/uL Potassium (3.5-5.1) mmol/L Chloride (98-107) mmol/L BUN (9-20) mg/dL Creatinine (0.66-1.25) mg/dL Glucose (74-99) mg/dL POC Glucose (mg/dL) 181 H 119 H (70-110) mg/dL Calcium (8.4-10.2) mg/dL Total Bilirubin (0.2-1.3) mg/dL Albumin (3.5-5.0) g/dL Cortisol 23.2 H (3.1-22.4) UG/DL 07/20/24 07/21/24 07/21/24 Range/Units 23:56 05: 05:25 WBC 10.37 H (4.50-10.00) 10*3/uL RBC 3.51 L (4.40-5.60) 10*6/uL Hgb 8.8 L D (13.0-17.0) g/dL Hct 30.2 L (39.6-50.0) % MCH 25.1 L (27.0-32.0) pg MCHC 29.1 L (32.0-37.0) g/dL Plt Count (140-440) 10*3/uL MPV 12.7 H (9.5-12.2) fL Neutrophils # 7.75 H (1.80-7.70) 10*3/uL Potassium 2.9 L (3.5-5.1) mmol/L Chloride 111 H (98-107) mmol/L BUN 25 H (9-20) mg/dL Creatinine 0.28 L (0.66-1.25) mg/dL Glucose 72 L (74-99) mg/dL POC Glucose (mg/dL) 149 H (70-110) mg/dL Calcium 7.9 L (8.4-10.2) mg/dL Total Bilirubin (0.2-1.3) mg/dL Albumin (3.5-5.0) g/dL Cortisol (3.1-22.4) UG/DL 07/21/24 07/21/24 Range/Units 07:55 07:55 WBC (4.50-10.00) 10*3/uL RBC 3.40 L (4.40-5.60) 10*6/uL Hgb 8.6 L (13.0-17.0) g/dL Hct 29.2 L (39.6-50.0) % MCH 25.3 L (27.0-32.0) pg MCHC 29.5 L (32.0-37.0) g/dL Plt Count 139 L (140-440) 10*3/uL MPV 12.9 H (9.5-12.2) fL Neutrophils # (1.80-7.70) 10*3/uL Potassium 2.5 L* (3.5-5.1) mmol/L Chloride 110 H (98-107) mmol/L BUN 25 H (9-20) mg/dL Creatinine 0.35 L (0.66-1.25) mg/dL Glucose 175 H (74-99) mg/dL POC Glucose (mg/dL) (70-110) mg/dL Calcium 8.3 L (8.4-10.2) mg/dL Total Bilirubin 1.6 H (0.2-1.3) mg/dL Albumin 2.7 L (3.5-5.0) g/dL Cortisol (3.1-22.4) UG/DL Microbiology - Last 24 Hours (Table) 07/20/24 06:01 Urine Culture - Final Urine,Voided 07/20/24 08:46 Gram Stain - Preliminary Sputum Assessment and Plan Assessment: Acute on chronic hypoxemic and hypercapnic respiratory failure, mainly secondary to recurrent mucous plugging. Rapid response team was called on 07/19/2024 due to hypoxemia and hypotension. He was transferred to the ICU and placed back on the mechanical ventilator. The patient has had multiple bronchoscopies with BAL with the most recent July 07, 2024 Hypotension requiring fluid resuscitation Another extended stay within the hospital from June 19, 2024 to July 16, 2024 for multiple medical issues including a left lower lobe pneumonia. Bronchoscopy 06/22/2024 with cultures positive for Pseudomonas aeruginosa and corynebacterium striatum. Repeat bronchoscopy with BAL 07/04/2024 again with Pseudomonas aeruginosa. Most likely a colonizer. History of recurrent ventilator dependent respiratory failure, secondary to p neumonia and mucous plugging Tracheal stenosis History of sepsis, secondary to pneumonia Crohn's disease, with previous bowel perforation, status post colectomy and diverting ileostomy Tracheobronchomalacia History of DVT History of CVA/TIA Right below the knee amputation History of asystole/cardiac arrest, 2021 Plan: The patient was seen and evaluated Chest x-ray, labs and medications reviewed The patient has had multiple attempts at weaning We are recommending transferring to a tertiary care center He is familiar as a patient at [facility] Remains on TPN and lipids for nutritional support Remains on therapeutic Lovenox Continue bronchodilators Continue frequent suctioning as necessary We will continue to follow I have personally seen and examined the patient, performed the documentation and the assessment and plan as written. Number of minutes spent on the visit: 15 Dictation was produced using [employer] dictation software. Please excuse any grammatical, word or spelling errors. Time with Patient: Greater than 30
[2024-07-21] MEDS: LORazepam 1 MG/0.5 ML VIAL IV PRN (12:00)
[2024-07-21 12:10] LABS: Glucose,Whole Blood 131 mg/dL (70-110)
[2024-07-21] MEDS ORDERED: VANCOMYCIN TROUGH DUE 1 EACH MISC MISCELLANE ONE (13:00)
[2024-07-21] MEDS ORDERED: 1: MVI, ADULT NO.4 WITH VIT K 10 ML, TRACE (CONC-1ML/DOSE) 1 ML, SODIUM CHLORIDE 4MEQ/ML IV SCH (16:00)
--- NOTE | 2024-07-21 16:04 | P.PN ---
Subjective Progress Note Date: 07/21/24 Principal diagnosis: Reason for follow-up is sepsis and pneumonia Patient is a 49-year-old male with multiple comorbidities including Crohn's disease status post colectomy diverting ileostomy tracheobronchomalacia CVA TIA cardiac arrest and history of recurrent pneumonias secondary to mucous plugging patient was recently discharged from this facility has been brought back to the hospital concerning for increasing shortness of breath and hypoxemia, patient did have worsening respiratory status requiring intubation and admission to the ICU. On today's evaluation that is 07/21/2024,the patient did have resolution of his fever afebrile this morning patient is more awake and alert today currently on the vent through the trach at 30% FiO2 still have secretion through the ET but no worsening or any other changes reported. Patient white count is 8.63, creatinine 0.35 sputum is growing Pseudomonas urine has been negative Objective - Vital Signs Vital signs: Vital Signs Temp 98.1 F 07/21/24 12:00 Pulse 82 07/21/24 15:00 Resp 20 07/21/24 15:00 BP 104/62 07/21/24 15:00 Pulse Ox 99 07/21/24 15:00 FiO2 30 07/21/24 12:00 Intake & Output 07/20/24 07/21/24 07/21/24 18:59 06:59 18:59 Intake Total 4140 2741 510 Output Total 1714 1455 185 Balance 2426 1286 325 Weight 88.3 kg 93.4 kg Intake: IV 3650 1601 225 ACETAMINOPHEN IV (For NPO 100 ) 1,000 mg In Empty Bag 1 bag @ 400 mls/hr IVPB Q6HR PRN Rx#:[id number] Cefepime 2 gm In Dextrose 100 5% in Water 100 ml @ 25 mls/hr IVPB Q8H [facility] Rx#: [id number] Ceftazidime/Avibactam 2.5 100 gm In Sodium Chloride 0. 9% 100 ml @ 50 mls/hr IVPB Q8H [facility] Rx#: [id number] Magnesium Sulfate-D5w Pmx 200 1 gm In Dextrose/Water 1 100ml.bag @ 100 mls/hr IVPB Q1H [facility] Rx#: [id number] Sodium Chloride 0.9% 1, 1500 1000 225 000 ml @ 125 mls/hr IV . Q8H [facility] Rx#:[id number] Sodium Chloride 0.9% 1, 1000 000 ml @ 999 mls/hr IV . Q1H1M [facility] Rx#:[id number] Sodium Phosphate 30 mmol 250 In Dextrose 5% in Water 250 ml @ 65 mls/hr IVPB ONCE [facility] Rx#:[id number] Vancomycin 1,500 mg In 500 501 Sodium Chloride 0.9% 500 ml 500 ml @ 167 mls/hr IVPB Q16H [facility] Rx#: [id number] TPN/PPN 490 1140 285 Mvi, Adult No.4 with Vit 190 1140 285 K 10 ml Trace (Conc-1Ml/ Dose) 1 ml Sodium Chloride 4Meq/ml Vial 64 meq Potassium Chloride 10 meq Calcium Gluconate 1 gm Magnesium Sulfate gm 1 gm Sodium Phosphate 21 mmol In Amino Acids 5 %/ Dextrose 20 % 1,000 ml @ 95 mls/hr IV .BY DURATION [facility] Rx#:[id number] Mvi, Adult No.4 with Vit 300 K 10 ml Trace (Conc-1Ml/ Dose) 1 ml Sodium Chloride 4Meq/ml Vial 64 meq Potassium Chloride 20 meq Calcium Gluconate 1 gm Magnesium Sulfate gm 1 gm Sodium Phosphate 21 mmol In Amino Acids 5 %/ Dextrose 20 % 1,000 ml @ 30 mls/hr IV .Q24H [facility] Rx #:[id number] Output: Urine 464 1005 185 Stool 1250 450 Other: Voiding Method Indwelling Catheter Indwelling Catheter Indwelling Catheter - Exam GENERAL DESCRIPTION: Middle-age male lying in bed in no distress RESPIRATORY SYSTEM: Unlabored breathing , decreased breath sounds at bases HEART: S1 S2 regular rate and rhythm , ABDOMEN: Soft , no tenderness EXTREMITIES: Some swelling to the leg but no redness - Labs CBC & Chem 7: 07/21/24 07:55 07/21/24 07:55 Labs: Abnormal Lab Results - Last 24 Hours (Table) 07/20/24 07/20/24 07/20/24 Range/Units 05:21 18:07 23:56 WBC (4.50-10.00) 10*3/uL RBC (4.40-5.60) 10*6/uL Hgb (13.0-17.0) g/dL Hct (39.6-50.0) % MCH (27.0-32.0) pg MCHC (32.0-37.0) g/dL Plt Count (140-440) 10*3/uL MPV (9.5-12.2) fL Neutrophils # (1.80-7.70) 10*3/uL Potassium (3.5-5.1) mmol/L Chloride (98-107) mmol/L BUN (9-20) mg/dL Creatinine (0.66-1.25) mg/dL Glucose (74-99) mg/dL POC Glucose (mg/dL) 119 H 149 H (70-110) mg/dL Calcium (8.4-10.2) mg/dL Total Bilirubin (0.2-1.3) mg/dL Albumin (3.5-5.0) g/dL Cortisol 23.2 H (3.1-22.4) UG/DL 07/21/24 07/21/24 07/21/24 Range/Units 05:25 05:25 07:55 WBC 10.37 H (4.50-10.00) 10*3/uL RBC 3.51 L 3.40 L (4.40-5.60) 10*6/uL Hgb 8.8 L D 8.6 L (13.0-17.0) g/dL Hct 30.2 L 29.2 L (39.6-50.0) % MCH 25.1 L 25.3 L (27.0-32.0) pg MCHC 29.1 L 29.5 L (32.0-37.0) g/dL Plt Count 139 L (140-440) 10*3/uL MPV 12.7 H 12.9 H (9.5-12.2) fL Neutrophils # 7.75 H (1.80-7.70) 10*3/uL Potassium 2.9 L (3.5-5.1) mmol/L Chloride 111 H (98-107) mmol/L BUN 25 H (9-20) mg/dL Creatinine 0.28 L (0.66-1.25) mg/dL Glucose 72 L (74-99) mg/dL POC Glucose (mg/dL) (70-110) mg/dL Calcium 7.9 L (8.4-10.2) mg/dL Total Bilirubin (0.2-1.3) mg/dL Albumin (3.5-5.0) g/dL Cortisol (3.1-22.4) UG/DL 07/21/24 07/21/24 Range/Units 07:55 12:09 WBC (4.50-10.00) 10*3/uL RBC (4.40-5.60) 10*6/uL Hgb (13.0-17.0) g/dL Hct (39.6-50.0) % MCH (27.0-32.0) pg MCHC (32.0-37.0) g/dL Plt Count (140-440) 10*3/uL MPV (9.5-12.2) fL Neutrophils # (1.80-7.70) 10*3/uL Potassium 2.5 L* (3.5-5.1) mmol/L Chloride 110 H (98-107) mmol/L BUN 25 H (9-20) mg/dL Creatinine 0.35 L (0.66-1.25) mg/dL Glucose 175 H (74-99) mg/dL POC Glucose (mg/dL) 131 H (70-110) mg/dL Calcium 8.3 L (8.4-10.2) mg/dL Total Bilirubin 1.6 H (0.2-1.3) mg/dL Albumin 2.7 L (3.5-5.0) g/dL Cortisol (3.1-22.4) UG/DL Microbiology - Last 24 Hours (Table) 07/20/24 08:46 Gram Stain - Preliminary Sputum Sputum Culture - Preliminary Pseudomonas aeruginosa 07/20/24 06:01 Urine Culture - Final Urine,Voided Assessment and Plan (1) Pneumonia Current Visit: No Status: Acute Code(s): J18.9 - PNEUMONIA, UNSPECIFIED ORGANISM SNOMED Code(s): 784922231 (2) Sepsis Current Visit: No Status: Acute Code(s): A41.9 - SEPSIS, UNSPECIFIED ORGAN ISM SNOMED Code(s): 88925035 Plan: 1patient with sepsis in this patient who did have fever tachycardia elevated white count meeting currently for SIRS source is likely pneumonia etiology could be mucous plugging and inadequate suction in the outpatient setting plus minus a catheter associated as a patient also significantly positive UA. 2sputum culture has been requested which are currently growing Pseudomonas sensitivities pending urine culture have been negative blood culture so far negative 3patient to continue with the vancomycin and Avycaze while waiting for sensitivity on the Pseudomonas if no gram-positive vancomycin will be discontinued Dictation was produced using [employer] dictation software. please excuse any grammatical, word or spelling errors. Time with Patient: Less than 30
[2024-07-21] MEDS: FAMOTIDINE 20 MG/2 ML VIAL IV SCH (17:15)
[2024-07-21] MEDS: diphenhydrAMINE 50 MG/ML 1 ML VIAL IVP SCH (17:15)
[2024-07-21] MEDS: POTASSIUM CHLORIDE 20 MEQ in WATER FOR INJECTION 1 100ML.BAG IVPB SCH (17:15)
[2024-07-21 17:26] LABS: Glucose,Whole Blood 80 mg/dL (70-110)
[2024-07-21] MEDS: HYDROmorphone 1 MG/ML 1 ML SYRINGE IVP PRN (18:23)
[2024-07-21] MEDS: 1: MVI, ADULT NO.4 WITH VIT K 10 ML, TRACE (CONC-1ML/DOSE) 1 ML, SODIUM CHLORIDE 4MEQ/ML IV SCH (21:02)
[2024-07-21 23:17] LABS: Glucose,Whole Blood 110 mg/dL (70-110)
[2024-07-22 05:22] LABS: Glucose,Whole Blood 125 mg/dL (70-110)
--- NOTE | 2024-07-22 05:38 | P.PN ---
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 Patient also with history of stroke, DVT and chronic medical debility with contractures of his hands bilaterally, and right arm weakness. Patient has had prolonged hospital stay secondary to a Pseudomonas pneumonia and difficulty weaning off the ventilator. He was tolerating trach collar secretions had been improved and he completed a course of IV antibiotics and was discharged to [facility] for rehabilitation. He was brought back in from the [facility] with reports that he was too much care for t he fpc staff. He is not a candidate for LTAC as he has been stable on the trach collar and he has no more select specialty days left this calendar year. Discussed with [employer] and they will provide the TPN and patient to be set up with visiting physicians. He was home again for 24 hours and came back to the hospital with complaints of difficulty breathing and sates the suctioning and trach care performed by his mother and son is not going well. He states he had increased secretions. He is not having any chest pains. He is awake and alert, oriented. He has a flat affect. He is unsure what to do and where to discharge to. Social work will be back on Saturday for follow up and assistance with DC planning. White blood cell count 8.96, hgb 12.6, sodium 139, potassium 4.8, BUN 28, creatinine 0.38. Glucose 124. He will be resumed on TPN through the PEG tube. 07/20/2024 Patient is evaluated today in follow up in the ICU. He had developed a suspected mucous plugging of the trach yesterday with respiratory distress and moved to the ICU. He is now on the ventilator with FiO2 of 60%. Chest xray this morning reveals left basilar linear atelectasis with similar right basilar airspace opa cities which may represent atelectasis versus infiltrates. Patient has been started on IV ceftazidime/avibactam with infectious disease and pulmonology following closely. Patient has been resumed on home TPN/Lipids. His ostomy is functioning and draining well. Patient and his mother are upset at the options available, he is unable to go to LTAC due to insurance issues. [facility] due to staffing issues and his high level of care. He was home for 24 hours and came back with increased secretions and mucous plugging. The patients mother when asked states she does not know what to do. He will be in the ICU at this time on IV antibiotics and will follow up tomorrow with social work and patient to discuss options and discharge planning needs. He was febrile overnight with T-max 100.3. Sputum culture was collected. White blood cell 10.56, hgb 11.4, BUN 136, potassium 5.0, BUN 38, creatinine 0.57, phos 1.3. Urine is significantly abnormal. Procalcitonin elevated at 1.05. 07/21/2024 Patient evaluated today in follow up in the ICU. Remains on the mechanical ve ntilator with FiO2 40% and PEEP of 5. He is awake alert and oriented. Yesterday discussion was had and family and patient have requested transfer to tertiary care. Discussed the case with [facility] and the decision went to their medical review board. They have declined this patient. Sputum colture growing pseudomonas auerginosa. He remains on the IV ceftazidime/avibactam. Chest xray reveals similar bibasilar airspace opacities which may represent atelectasis vs. infiltrates. Stable support lines and tubes. Labs reveal white blood cell count 8.63, sodium 140, potassium 2.5, BUN 25, creatinine 0.35, nikkie 1.6. Fever has improved. REVIEW OF SYSTEMS: CONSTITUTIONAL: No fever, no malaise, no fatigue. HEENT: No recent visual problems or hearing problems. Denied any sore throat. CARDIOVASCULAR: No chest pain, orthopnea, PND, no palpitations, no syncope. PULMONARY: Reports shortness of breath and increased secretions GASTROINTESTINAL: No diarrhea, no nausea, no vomiting, no abdominal pain. NEUROLOGICAL: No headaches, no weakness, no numbness. PHYSICAL EXAMINATION: GENERAL: The patient is alert and oriented x3, not in any acute distress. Well developed, well nourished. HEENT: Pupils are round and equally reacting to light. EOMI. No scleral icterus. No conjunctival pallor. Normocephalic, atraumatic. No pharyngeal erythema. No thyromegaly. Trach in place. On the ventilator. CARDIOVASCULAR: S1 and S2 present. No murmurs, rubs, or gallops. PULMONARY: Chest is clear to auscultation, no wheezing or crackles. ABDOMEN: Soft, nontender, nondistended, normoactive bowel sounds. No palpable organomegaly. Ileostomy in place and functioning with liquid stools. MUSCULOSKELETAL: No joint swelling or deformity. EXTREMITIES: No cyanosis, clubbing, or pedal edema. Right BKA. NEUROLOGICAL: Gross neurological examination did not reveal any focal deficits. Contractures of hands bilaterally. SKIN: No rashes. Assessment and Plan - Acute on chronic hypoxemic and hypercapnic respiratory failure, mainly secondary to mucous plugging. S/P ateam and now requiring mechanical ventilator. - Prolonged hospital stay and vent dependency - Hypotension with concern for sepsis - Urinary tract infection, POA - Pseudomonas pneumonia history likely a colonizer; repeat sputum pending - Crohn's disease with ileostomy in the past patient is presently on TPN - Right sided otitis media resolved - Tracheobronchomalacia - CVA TIA - History of DVT - Chronic medical debility with contractures of hands bilaterally - Hx of right BKA GI prophylaxis DVT prophylaxis Plan Resume home medications Continue routine trach care with suctioning PRN Continue TPN Ileostomy functioning Patient has been placed back on the mechanical ventilator due to mucous plugging and respiratory distress Continue bronchodilators Sputum culture has been repeated and currently pending ID on consultation and patient has been placed back on the IV ceftazidime/avibactam after completing 10 day course his last prolonged hospital stay Urine culture and blood cultures are pending Patient is status post 3L of normal saline and will continue at normal saline 75 mls/hr Pulmonary critical care recommended tertiary care center and [facility] has denied the transfer request. Social on for discharge planning. Monitor electrolyes and renal function Social work on for discharge planning and will follow up Saturday. Patient states he was not doing well at home with family providing suctioning and trach care and states he couldn't breath. He came back in for discharge planning and trach care. The impression and plan of care has been dictated by Coral Medina, Nurse Practitioner as directed. Dr. Mo MD I have performed a history and physical examination and medical decision making of this patient, discussed the same with the dictator, and agree with the dictators assessment and plan as written, documented as a scribe. Based on total visit time, I have performed more than 50% of this visit. Objective - Vital Signs Vital signs: Vital Signs Temp 99.0 F 07/22/24 04:00 Pulse 68 07/22/24 05:00 Resp 20 07/22/24 05:00 BP 127/64 07/22/24 05:00 Pulse Ox 98 07/22/24 05:00 FiO2 30 07/22/24 05:15 Intake & Output 07/21/24 07/21/24 07/22/24 06:59 18:59 06:59 Intake Total 2741 2070 1999 Output Total 2210 504 8599 Balance 1286 1340 240 Weight 93.4 kg 95.2 kg Intake: IV 1601 825 940 Ceftazidime/Avibactam 2.5 100 gm In Sodium Chloride 0. 9% 100 ml @ 50 mls/hr IVPB Q8H [facility] Rx#: [id number] Mvi, Adult No.4 with Vit 190 K 10 ml Trace (Conc-1Ml/ Dose) 1 ml Sodium Chloride 4Meq/ml Vial 64 meq Potassium Chloride 10 meq Calcium Gluconate 1 gm Magnesium Sulfate gm 1 gm Sodium Phosphate 21 mmol In Amino Acids 5 %/ Dextrose 20 % 1,000 ml @ 95 mls/hr IV .BY DURATION [facility] Rx#:[id number] Sodium Chloride 0.9% 1, 1000 225 000 ml @ 125 mls/hr IV . Q8H [facility] Rx#:[id number] Sodium Chloride 0.9% 500 600 750 ml 500 ml @ 75 mls/hr IV .Q6H40M [facility] Rx#:[id number] Vancomycin 1,500 mg In 501 Sodium Chloride 0.9% 500 ml 500 ml @ 167 mls/hr IVPB Q16H [facility] Rx#: [id number] Intake, IV Titration 300 Amount Potassium Chloride 20 meq 300 In Water For Injection 1 100ml.bag @ 50 mls/hr IVPB Q2H [facility] Rx#: [id number] Oral 200 TPN/PPN 1140 1045 760 Mvi, Adult No.4 with Vit 1140 1045 760 K 10 ml Trace (Conc-1Ml/ Dose) 1 ml Sodium Chloride 4Meq/ml Vial 64 meq Potassium Chloride 10 meq Calcium Gluconate 1 gm Magnesium Sulfate gm 1 gm Sodium Phosphate 21 mmol In Amino Acids 5 %/ Dextrose 20 % 1,000 ml @ 95 mls/hr IV .BY DURATION [facility] Rx#:[id number] Output: Urine 1005 730 760 Stool 450 1000 Other: Voiding Method Indwelling Catheter Indwelling Catheter Indwelling Catheter - Labs CBC & Chem 7: 07/21/24 07:55 07/21/24 16:35 Labs: Abnormal Lab Results - Last 24 Hours (Table) 07/21/24 07/21/24 07/21/24 Range/Units 05:25 05:25 07:55 WBC 10.37 H (4.50-10.00) 10*3/uL RBC 3.51 L 3.40 L (4.40-5.60) 10*6/uL Hgb 8.8 L D 8.6 L (13.0-17.0) g/dL Hct 30.2 L 29.2 L (39.6-50.0) % MCH 25.1 L 25.3 L (27.0-32.0) pg MCHC 29.1 L 29.5 L (32.0-37.0) g/dL Plt Count 139 L (140-440) 10*3/uL MPV 12.7 H 12.9 H (9.5-12.2) fL Neutrophils # 7.75 H (1.80-7.70) 10*3/uL Potassium 2.9 L (3.5-5.1) mmol/L Chloride 111 H (98-107) mmol/L BUN 25 H (9-20) mg/dL Creatinine 0.28 L (0.66-1.25) mg/dL Glucose 72 L (74-99) mg/dL POC Glucose (mg/dL) (70-110) mg/dL Calcium 7.9 L (8.4-10.2) mg/dL Total Bilirubin (0.2-1.3) mg/dL Albumin (3.5-5.0) g/dL 07/21/24 07/21/24 07/21/24 Range/Units 07:55 12:09 16:35 WBC (4.50-10.00) 10*3/uL RBC (4.40-5.60) 10*6/uL Hgb (13.0-17.0) g/dL Hct (39.6-50.0) % MCH (27.0-32.0) pg MCHC (32.0-37.0) g/dL Plt Count (140-440) 10*3/uL MPV (9.5-12.2) fL Neutrophils # (1.80-7.70) 10*3/uL Potassium 2.5 L* 3.1 L (3.5-5.1) mmol/L Chloride 110 H (98-107) mmol/L BUN 25 H (9-20) mg/dL Creatinine 0.35 L (0.66-1.25) mg/dL Glucose 175 H (74-99) mg/dL POC Glucose (mg/dL) 131 H (70-110) mg/dL Calcium 8.3 L (8.4-10.2) mg/dL Total Bilirubin 1.6 H (0.2-1.3) mg/dL Albumin 2.7 L (3.5-5.0) g/dL 07/22/24 Range/Units 05:20 WBC (4.50-10.00) 10*3/uL RBC (4.40-5.60) 10*6/uL Hgb (13.0-17.0) g/dL Hct (39.6-50.0) % MCH (27.0-32.0) pg MCHC (32.0-37.0) g/dL Plt Count (140-440) 10*3/uL MPV (9.5-12.2) fL Neutrophils # (1.80-7.70) 10*3/uL Potassium (3.5-5.1) mmol/L Chloride (98-107) mmol/L BUN (9-20) mg/dL Creatinine (0.66-1.25) mg/dL Glucose (74-99) mg/dL POC Glucose (mg/dL) 125 H (70-110) mg/dL Calcium (8.4-10.2) mg/dL Total Bilirubin (0.2-1.3) mg/dL Albumin (3.5-5.0) g/dL Microbiology - Last 24 Hours (Table) 07/20/24 15:20 Blood Culture - Preliminary Blood 07/20/24 08:46 Gram Stain - Preliminary Sputum Sputum Culture - Preliminary Pseudomonas aeruginosa 07/20/24 06:01 Urine Culture - Final Urine,Voided Assessment and Plan Time with Patient: Less than 30
[2024-07-22] MEDS: VANCOMYCIN TROUGH DUE 1 EACH MISC MISCELLANE ONE (06:23)
[2024-07-22 06:33] LABS: Basophils # (A) 0.02 10*3/uL (0.00-0.10); Basophils % (A) 0.4 %; Eosinophils # (A) 0.18 10*3/uL (0.04-0.35); Eosinophils % (A) 3.8 %; HCT 29.8 % (39.6-50.0); HGB 8.7 g/dL (13.0-17.0); Lymphocytes # (A) 1.31 10*3/uL (0.90-5.00); Lymphocytes % (A) 27.6 %; MCH 25.5 pg (27.0-32.0); MCHC 29.2 g/dL (32.0-37.0); MCV 87.4 fL (80.0-97.0); Mean Platelet Volume 12.1 fL (9.5-12.2); Monocytes # (A) 0.38 10*3/uL (0.20-1.00); Neutrophils # (A) 2.85 10*3/uL (1.80-7.70); Platelet Count 144 10*3/uL (140-440); RBC 3.41 10*6/uL (4.40-5.60); WBC 4.75 10*3/uL (4.50-10.00)
[2024-07-22 06:48] LABS: African American GFR (CKD) >90 (>60 ml/min/1.73 sqM); Anion Gap 9 mmol/L; Blood Urea Nitrogen 20 mg/dL (9-20); Calcium 8.6 mg/dL (8.4-10.2); Carbon Dioxide 23 mmol/L (22-30); Chloride 111 mmol/L (98-107); Glucose 110 mg/dL (74-99); Non-African American GFR(CKD) >90 (>60 ml/min/1.73 sqM); Phosphorus 2.7 mg/dL (2.5-4.5); Potassium 3.6 mmol/L (3.5-5.1); Sodium 143 mmol/L (137-145)
[2024-07-22] MEDS: POTASSIUM CHLORIDE 10 MEQ in WATER FOR INJECTION 1 100ML.BAG IVPB SCH ×2 (07:01→13:23)
--- NOTE | 2024-07-22 08:02 | XR ---
EXAMINATION TYPE: XR chest 1V portable DATE OF EXAM: 07/22/2024 5:32 AM COMPARISON: Multiple radiographs, with the most recent on 07/21/2024 TECHNIQUE: XR chest 1V portable Portable AP radiograph of the chest. CLINICAL INDICATION:Male, 49 years old with history of Tube placement; FINDINGS: Lungs/Pleura: No pleural effusion or pneumothorax. No focal consolidation. Similar subtle left basila r airspace opacities. Similar medial right basilar airspace opacities. Pulmonary vascularity: Unremarkable. Heart/mediastinum: Cardiomediastinal silhouette is unremarkable. Musculoskeletal: No acute osseous pathology. Other findings: Surgical clips within the right supraclavicular region. Lines/Tubes: Left IJ approach central venous catheter with distal tip at the superior cavoatrial junction. Tracheostomy cannula is in stable position. IMPRESSION: 1. Similar bibasilar airspace opacities which may represent atelectasis versus infiltrates. 2. Stable support lines and tubes. [facility], , 07/22/2024 8:00 AM
[2024-07-22] MEDS: 1: MVI, ADULT NO.4 WITH VIT K 10 ML, TRACE (CONC-1ML/DOSE) 1 ML, SODIUM CHLORIDE 4MEQ/ML IV SCH (08:43)
[2024-07-22] MEDS: PANTOPRAZOLE 40 MG TABLET PO SCH (09:11)
--- NOTE | 2024-07-22 11:25 | P.PN ---
Subjective Progress Note Date: 07/22/24 This is a 49-year-old male patient with a known history of recurrent ventilatory dependent respiratory failure secondary to pneumonias and mucous plugging, Crohn's disease, status post colectomy and diverting ileostomy, tracheobronchomalacia, DVT, CVA/TIA, right below the knee amputation, history of cardiac arrest in 2021. He was recently treated for Pseudomonas aeruginosa and corynebacterium stratum noted on bronchoscopy wash from 07/04/2024. He was on and off the ventilator throughout his stay wean admission on 06/19/2024 to discharge on 07/16/2024 to [facility]. Discharge planning had worked hard on finding a bed for him. All of his hospital stay information was reviewed with their liaison who accepted the patient. He has used up all his long-term acute care days. [facility] received the patient on 07/16/2024 and only kept him maybe a few hours and sent him back here to the emergency room stating they are unable to take care of him. We saw the patient on consultation on 07/17/2024, and considering the patient was doing fairly well, we recommended that the patient could be discharged home. However patient came back yesterday with recurrent episodes of shortness of breath, possibly related to worsening tracheal secretions and possibly sometimes mucous plugging. We saw the patient again today, he seems to be very comfortable, not in any distress, on trach collar, and his chest x-ray showed mostly minimal atelectasis no clear-cut evidence of pneumonia. Patient had a relatively normal CBC with WBC count of 8.9 hemoglobin 12.6 electrolytes are normal renal profile is normal, we believe the patient was mostly readmitted only because of placement issues. The patient is seen today July 20, 2024 in follow-up in the intensive care unit. Transferred here from 3 . after a rapid response team was called on him for worsening shortness of breath and hypotension. He was placed back on mechanical ventilator. Current settings assist-control mode at a rate of 20, tidal volume 500, FiO2 60% and a PEEP of 5. Blood gases unable to be obtained per respiratory therapy. White count 10.5. Hemoglobin 11.4. Platelets 185. Sodium 136. Potassium 5.0. Bicarb 27. BUN 38. Creatinine 0.57. Glucose 116. Procalcitonin 1.05. Urinalysis with large leukocyte Estrace, high WBCs, high RBCs. Culture pending. Current temperature 101.1. Chest x-ray reveals left basilar linear atelectasis with some similar right basilar airspace opacities. Left IJ approach dual-lumen PICC line in place. Tracheostomy cannula in stable position. He remains on DuoNeb inhalations. Receiving TPN currently at 30 mL/h with a goal of 95 mL/h. Lipids every 72 hours. He remains on therapeutic Lovenox at 90 mg SQ every 12 hours. Continued on vancomycin and Avycaz. The patient is seen today July 21, 2024 in follow-up in the intensive care unit. He is currently awake and alert. Not requiring any sedation. He remains on the mechanical ventilator currently on assist-control mode with a tidal volume of 500, FiO2 30% and a PEEP of 5. He remains on antibiotics in the form of vancomycin and Avycaz. Receiving normal saline at 75 mL/h. Electrolytes are being replaced. He is on TPN at 95 mL/h. Lipids every 72 hours. Urine culture revealed no growth. Sputum culture pending. White count 8.6. Hemoglobin 8.6. Platelets 139. Sodium 140. Potassium 2.5. Bicarb 23. BUN 25. Creatinine 0.35. AST 21. ALT 29. He remains on therapeutic Lovenox. He is currently afebrile. Hemodynamically stable. The patient is seen today July 22, 2024 in follow-up in the intensive care unit. He is currently at and alert in no acute distress. He has been trialed on trach collar only lasted approximately 30 minutes yesterday. He has been on trach collar 40% FiO2 today. He asked to go back on the vent stating he cannot breathe. When on the vent he is on assist-control mode at a rate of 20, tidal volume 500, FiO2 30% and a PEEP of 5. He has normal saline at 75 mL/h. TPN at 95 mL/h. Receiving lipids every 72 hours. Sputum culture is positive for Pseudomonas aeruginosa. Blood culture pending. Urine culture revealed no growth. Chest x-ray continues to show similar bibasilar airspace opacities most likely atelectasis versus infiltrate. White count 4.7. Hemoglobin 8.7. Platele ts 144. Sodium 143. Potassium 3.8. Bicarb 23. BUN 20. Creatinine 0.40. Glucose 110. Sharlene on vancomycin and Avycaz. Continued on DuoNeb inhalations. Lovenox for anticoagulation. Receiving Ativan 1 mg IV every 6 hours as needed for anxiety. Objective - Vital Signs Vital signs: Vital Signs Temp 99.2 F 07/22/24 08:00 Pulse 108 H 07/22/24 10:00 Resp 27 H 07/22/24 10:00 BP 123/67 07/22/24 10:00 Pulse Ox 95 07/22/24 10:00 FiO2 30 07/22/24 10:10 Intake & Output 07/21/24 07/22/24 07/22/24 18:59 06:59 18:59 Intake Total 2070 2510 1280 Output Total 730 1960 500 Balance 1340 550 780 Weight 95.2 kg Intake: IV 825 1165 900 Mvi, Adult No.4 with Vit 190 K 10 ml Trace (Conc-1Ml/ Dose) 1 ml Sodium Chloride 4Meq/ml Vial 64 meq Potassium Chloride 10 meq Calcium Gluconate 1 gm Magnesium Sulfate gm 1 gm Sodium Phosphate 21 mmol In Amino Acids 5 %/ Dextrose 20 % 1,000 ml @ 95 mls/hr IV .BY DURATION [facility] Rx#:[id number] Potassium Chloride 10 meq 100 In Water For Injection 1 100ml.bag @ 100 mls/hr IVPB Q1H [facility] Rx#: [id number] Sodium Chloride 0.9% 1, 225 000 ml @ 125 mls/hr IV . Q8H [facility] Rx#:[id number] Sodium Chloride 0.9% 500 600 975 300 ml 500 ml @ 75 mls/hr IV .Q6H40M [facility] Rx#:[id number] Vancomycin 1,500 mg In 500 Sodium Chloride 0.9% 500 ml 500 ml @ 167 mls/hr IVPB Q16H [facility] Rx#: [id number] Intake, IV Titration 300 Amount Potassium Chloride 20 meq 300 In Water For Injection 1 100ml.bag @ 50 mls/hr IVPB Q2H [facility] Rx#: [id number] Oral 200 TPN/PPN 1045 1045 380 Mvi, Adult No.4 with Vit 1045 1045 380 K 10 ml Trace (Conc-1Ml/ Dose) 1 ml Sodium Chloride 4Meq/ml Vial 64 meq Potassium Chloride 10 meq Calcium Gluconate 1 gm Magnesium Sulfate gm 1 gm Sodium Phosphate 21 mmol In Amino Acids 5 %/ Dextrose 20 % 1,000 ml @ 95 mls/hr IV .BY DURATION [facility] Rx#:[id number] Output: Urine 730 960 300 Stool 1000 200 Other: Voiding Method Indwelling Catheter Indwelling Catheter Indwelling Catheter - Exam GENERAL EXAM: Awake, 49-year-old male, on the mechanical ventilator, in no apparent distress. HEAD: Normocephalic. EYES: Normal reaction of pupils, equal size. NOSE: Clear with pink turbinates. THROAT: Tracheostomy tube secured in place. No erythema or exudates. NECK: No masses, no JVD. CHEST: No chest wall deformity. LUNGS: Equal air entry with coarse rhonchi bilaterally. CVS: S1 and S2 normal with no audible murmur, regular rhythm. ABDOMEN: Enterocutaneous fistula over the abdominal wall. No hepatosplenomegaly, normal bowel sounds. SPINE: No scoliosis or deformity SKIN: No rashes CENTRAL NERVOUS SYSTEM: No focal deficits, tone is normal in all 4 extremities. EXTREMITIES: Extensive muscle atrophy. Contractures. There is no peripheral edema. No clubbing, no cyanosis. Peripheral pulses are intact. - Labs CBC & Chem 7: 07/22/24 05:54 07/22/24 10:34 Labs: Abnormal Lab Results - Last 24 Hours (Table) 07/21/24 07/21/24 07/22/24 Range/Units 12:09 16:35 05:20 RBC (4.40-5.60) 10*6/uL Hgb (13.0-17.0) g/dL Hct (39.6-50.0) % MCH (27.0-32.0) pg MCHC (32.0-37.0) g/dL Potassium 3.1 L (3.5-5.1) mmol/L Chloride (98-107) mmol/L Creatinine (0.66-1.25) mg/dL Glucose (74-99) mg/dL POC Glucose (mg/dL) 131 H 125 H (70-110) mg/dL 07/22/24 07/22/24 Range/Units 05:54 05:54 RBC 3.41 L (4.40-5.60) 10*6/uL Hgb 8.7 L (13.0-17.0) g/dL Hct 29.8 L (39.6-50.0) % MCH 25.5 L (27.0-32.0) pg MCHC 29.2 L (32.0-37.0) g/dL Potassium (3.5-5.1) mmol/L Chloride 111 H (98-107) mmol/L Creatinine 0.40 L (0.66-1.25) mg/dL Glucose 110 H (74-99) mg/dL POC Glucose (mg/dL) (70-110) mg/dL Microbiology - Last 24 Hours (Table) 07/20/24 15:20 Blood Culture - Preliminary Blood 07/20/24 08:46 Gram Stain - Preliminary Sputum Sputum Culture - Preliminary Pseudomonas aeruginosa 07/20/24 06:01 Urine Culture - Final Urine,Voided Assessment and Plan Assessment: Acute on chronic hypoxemic and hypercapnic respiratory failure, mainly secondary to recurrent mucous plugging. Rapid response team was called on 07/19/2024 due to hypoxemia and hypotension. He was transferred to the ICU and placed back on the mechanical ventilator. The patient has had multiple bronchoscopies with BAL with the most recent July 07, 2024 Hypotension requiring fluid resuscitation Another extended stay within the hospital from June 19, 2024 to July 16, 2024 for multiple medical issues including a left lower lobe pneumonia. Bronchoscopy 06/22/2024 with cultures positive for Pseudomonas aeruginosa and corynebacterium striatum. Repeat bronchoscopy with BAL 07/04/2024 again with Pseudomonas aeruginosa. Most likely a colonizer. Sputum culture still positive for Pseudomonas on 07/20/2024. Remains on vancomycin and Avycaz History of recurrent ventilator dependent respiratory failure, secondary to pneumonia and mucous plugging Anxiety Tracheal stenosis History of sepsis, secondary to pneumonia Crohn's disease, with previous bowel perforation, status post colectomy and dive rting ileostomy Tracheobronchomalacia History of DVT History of CVA/TIA Right below the knee amputation History of asystole/cardiac arrest, 2021 Plan: The patient was seen and evaluated Chest x-ray, labs and medications reviewed Remains on TPN and lipids for nutritional support Remains on therapeutic Lovenox Continue bronchodilators Continued on vancomycin and Avycaz per ID service Continue frequent suctioning as necessary The patient has had multiple attempts at weaning The patient was declined for transfer to [facility] We will continue to follow I have personally seen and examined the patient, performed the documentation and the assessment and plan as written. Number of minutes spent on the visit: 15 Dictation was produced using [employer] dictation software. Please excuse any grammatical, word or spelling errors.
[2024-07-22 13:40] LABS: Glucose,Whole Blood 118 mg/dL (70-110)
[2024-07-22 17:39] LABS: Glucose,Whole Blood 111 mg/dL (70-110)
--- NOTE | 2024-07-22 18:12 | P.PN ---
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 Patient also with history of stroke, DVT and chronic medical debility with contractures of his hands bilaterally, and right arm weakness. Patient has had prolonged hospital stay secondary to a Pseudomonas pneumonia and difficulty weaning off the ventilator. He was tolerating trach collar secretions had been improved and he completed a course of IV antibiotics and was discharged to [facility] for rehabilitation. He was brought back in from the [facility] with reports that he was too much care for t he halfway staff. He is not a candidate for LTAC as he has been stable on the trach collar and he has no more [facility] specialty days left this calendar year. Discussed with [employer] and they will provide the TPN and patient to be set up with visiting physicians. He was home again for 24 hours and came back to the hospital with complaints of difficulty breathing and sates the suctioning and trach care performed by his mother and son is not going well. He states he had increased secretions. He is not having any chest pains. He is awake and alert, oriented. He has a flat affect. He is unsure what to do and where to discharge to. Social work will be back on Saturday for follow up and assistance with DC planning. White blood cell count 8.96, hgb 12.6, sodium 139, potassium 4.8, BUN 28, creatinine 0.38. Glucose 124. He will be resumed on TPN through the PEG tube. 07/20/2024 Patient is evaluated today in follow up in the ICU. He had developed a suspected mucous plugging of the trach yesterday with respiratory distress and moved to the ICU. He is now on the ventilator with FiO2 of 60%. Chest xray this morning reveals left basilar linear atelectasis with similar right basilar airspace opa cities which may represent atelectasis versus infiltrates. Patient has been started on IV ceftazidime/avibactam with infectious disease and pulmonology following closely. Patient has been resumed on home TPN/Lipids. His ostomy is functioning and draining well. Patient and his mother are upset at the options available, he is unable to go to LTAC due to insurance issues. He was only at the [facility] for 24 hours due to staffing issues and his high level of care. He was home for 24 hours and came back with increased secretions and mucous plugging. The patients mother when asked states she does not know what to do. He will be in the ICU at this time on IV antibiotics and will follow up tomorrow with social work and patient to discuss options and discharge planning needs. He was febrile overnight with T-max 100.3. Sputum culture was collected. White blood cell 10.56, hgb 11.4, BUN 136, potassium 5.0, BUN 38, creatinine 0.57, phos 1.3. Urine is significantly abnormal. Procalcitonin elevated at 1.05. 07/21/2024 Patient evaluated today in follow up in the ICU. Remains on the mechanical ve ntilator with FiO2 40% and PEEP of 5. He is awake alert and oriented. Yesterday discussion was had and family and patient have requested transfer to tertiary care. Discussed the case with [facility] and the decision went to their medical review board. They have declined this patient. Sputum colture growing pseudomonas auerginosa. He remains on the IV ceftazidime/avibactam. Chest xray reveals similar bibasilar airspace opacities which may represent atelectasis vs. infiltrates. Stable support lines and tubes. Labs reveal white blood cell count 8.63, sodium 140, potassium 2.5, BUN 25, creatinine 0.35, nikkie 1.6. Fever has improved. 07/22/2024 Patient is evaluated today in follow up in the intensive care unit. He remains on the mechanical ventilator through the tracheostomy. FiO2 of 30%. He is in a better mood today. Chest xray reveals similar bibasilar airspace opacities which may represent atelectasis vs. infiltrates. Stable support lines and tubes. Sputum culture reveals pseudomonas aeurginosa. He continues on the IV avycaz. REVIEW OF SYSTEMS: CONSTITUTIONAL: No fever, no malaise, no fatigue. HEENT: No recent visual problems or hearing problems. Denied any sore throat. CARDIOVASCULAR: No chest pain, orthopnea, PND, no palpitations, no syncope. PULMONARY: Reports shortness of breath and increased secretions GASTROINTESTINAL: No diarrhea, no nausea, no vomiting, no abdominal pain. NEUROLOGICAL: No headaches, no weakness, no numbness. PHYSICAL EXAMINATION: GENERAL: The patient is alert and oriented x3, not in any acute distress. Well developed, well nourished. HEENT: Pupils are round and equally reacting to light. EOMI. No scleral icterus. No conjunctival pallor. Normocephalic, atraumatic. No pharyngeal erythema. No thyromegaly. Trach in place. On the ventilator. CARDIOVASCULAR: S1 and S2 present. No murmurs, rubs, or gallops. PULMONARY: Chest is clear to auscultation, no wheezing or crackles. ABDOMEN: Soft, nontender, nondistended, normoactive bowel sounds. No palpable organomegaly. Ileostomy in place and functioning with liquid stools. MUSCULOSKELETAL: No joint swelling or deformity. EXTREMITIES: No cyanosis, clubbing, or pedal edema. Right BKA. NEUROLOGICAL: Gross neurological examination did not reveal any focal deficits. Contractures of hands bilaterally. SKIN: No rashes. Assessment and Plan - Acute on chronic hypoxemic and hypercapnic respiratory failure, mainly secondary to mucous plugging. S/P ateam and now requiring mechanical ventilator. - Prolonged hospital stay and vent dependency - Hypotension with concern for sepsis - Urinary tract infection, POA - Pseudomonas pneumonia history likely a colonizer; repeat sputum pending - Crohn's disease with ileostomy in the past patient is presently on TPN - Right sided otitis media resolved - Tracheobronchomalacia - CVA TIA - History of DVT - Chronic medical debility with contractures of hands bilaterally - Hx of right BKA GI prophylaxis DVT prophylaxis Plan Resume home medications Continue routine trach care with suctioning PRN Continue TPN Ileostomy functioning Patient has been placed back on the mechanical ventilator due to mucous plugging and respiratory distress Continue bronchodilators ID on consultation and patient has been placed back on the IV ceftazidime/ avibactam after completing 10 day course his last prolonged hospital stay Urine culture and blood cultures are pending Patient is status post 3L of normal saline and will continue at normal saline 75 mls/hr Pulmonary critical care recommended tertiary care center and [facility] has denied the transfer request. Social on for discharge planning. Monitor electrolyes and renal function The impression and plan of care has been dictated by Coral Medina, Nurse Practitioner as directed. Dr. Mo MD I have performed a history and physical examination and medical decision making of this patient, discussed the same with the dictator, and agree with the dictators assessment and plan as written, documented as a scribe. Based on total visit time, I have performed more than 50% of this visit. Objective - Vital Signs Vital signs: Vital Signs Temp 99.2 F 07/22/24 08:00 Pulse 90 07/22/24 09:00 Resp 28 H 07/22/24 09:00 BP 103/87 07/22/24 09:00 Pulse Ox 99 07/22/24 09:00 FiO2 40 07/22/24 09:00 Intake & Output 07/21/24 07/22/24 07/22/24 18:59 06:59 18:59 Intake Total 2070 2510 940 Output Total 730 1960 300 Balance 1340 550 640 Weight 95.2 kg Intake: IV 825 1165 750 Mvi, Adult No.4 with Vit 190 K 10 ml Trace (Conc-1Ml/ Dose) 1 ml Sodium Chloride 4Meq/ml Vial 64 meq Potassium Chloride 10 meq Calcium Gluconate 1 gm Magnesium Sulfate gm 1 gm Sodium Phosphate 21 mmol In Amino Acids 5 %/ Dextrose 20 % 1,000 ml @ 95 mls/hr IV .BY DURATION [facility] Rx#:[id number] Potassium Chloride 10 meq 100 In Water For Injection 1 100ml.bag @ 100 mls/hr IVPB Q1H [facility] Rx#: [id number] Sodium Chloride 0.9% 1, 225 000 ml @ 125 mls/hr IV . Q8H [facility] Rx#:[id number] Sodium Chloride 0.9% 500 600 975 150 ml 500 ml @ 75 mls/hr IV .Q6H40M [facility] Rx#:[id number] Vancomycin 1,500 mg In 500 Sodium Chloride 0.9% 500 ml 500 ml @ 167 mls/hr IVPB Q16H [facility] Rx#: [id number] Intake, IV Titration 300 Amount Potassium Chloride 20 meq 300 In Water For Injection 1 100ml.bag @ 50 mls/hr IVPB Q2H [facility] Rx#: [id number] Oral 200 TPN/PPN 1045 1045 190 Mvi, Adult No.4 with Vit 1045 1045 190 K 10 ml Trace (Conc-1Ml/ Dose) 1 ml Sodium Chloride 4Meq/ml Vial 64 meq Potassium Chloride 10 meq Calcium Gluconate 1 gm Magnesium Sulfate gm 1 gm Sodium Phosphate 21 mmol In Amino Acids 5 %/ Dextrose 20 % 1,000 ml @ 95 mls/hr IV .BY DURATION [facility] Rx#:[id number] Output: Urine 730 960 100 Stool 1000 200 Other: Voiding Method Indwelling Catheter Indwelling Catheter - Labs CBC & Chem 7: 07/22/24 05:54 07/22/24 10:34 Labs: Abnormal Lab Results - Last 24 Hours (Table) 07/21/24 07/21/24 07/22/24 Range/Units 12:09 16:35 05:20 RBC (4.40-5.60) 10*6/uL Hgb (13.0-17.0) g/dL Hct (39.6-50.0) % MCH (27.0-32.0) pg MCHC (32.0-37.0) g/dL Potassium 3.1 L (3.5-5.1) mmol/L Chloride (98-107) mmol/L Creatinine (0.66-1.25) mg/dL Glucose (74-99) mg/dL POC Glucose (mg/dL) 131 H 125 H (70-110) mg/dL 07/22/24 07/22/24 Range/Units 05:54 05:54 RBC 3.41 L (4.40-5.60) 10*6/uL Hgb 8.7 L (13.0-17.0) g/dL Hct 29.8 L (39.6-50.0) % MCH 25.5 L (27.0-32.0) pg MCHC 29.2 L (32.0-37.0) g/dL Potassium (3.5-5.1) mmol/L Chloride 111 H (98-107) mmol/L Creatinine 0.40 L (0.66-1.25) mg/dL Glucose 110 H (74-99) mg/dL POC Glucose (mg/dL) (70-110) mg/dL Microbiology - Last 24 Hours (Table) 07/20/24 15:20 Blood Culture - Preliminary Blood 07/20/24 08:46 Gram Stain - Preliminary Sputum Sputum Culture - Preliminary Pseudomonas aeruginosa 07/20/24 06:01 Urine Culture - Final Urine,Voided Assessment and Plan Time with Patient: Less than 30
[2024-07-22 23:39] LABS: Glucose,Whole Blood 113 mg/dL (70-110)
[2024-07-23] MEDS: CEFTOLOZANE/TAZOBACTAM 3 GM in SODIUM CHLORIDE 0.9% 100 ML IV SCH (00:45)
[2024-07-23 04:30] LABS: Basophils # (A) 0.03 10*3/uL (0.00-0.10); Basophils % (A) 0.7 %; Eosinophils # (A) 0.24 10*3/uL (0.04-0.35); Eosinophils % (A) 5.3 %; HCT 28.4 % (39.6-50.0); HGB 8.1 g/dL (13.0-17.0); Lymphocytes % (A) 26.5 %; MCH 24.5 pg (27.0-32.0); MCHC 28.5 g/dL (32.0-37.0); MCV 85.8 fL (80.0-97.0); Mean Platelet Volume 11.2 fL (9.5-12.2); Monocytes # (A) 0.24 10*3/uL (0.20-1.00); Monocytes % (A) 5.3 %; Platelet Count 156 10*3/uL (140-440); RBC 3.31 10*6/uL (4.40-5.60); RDW 16.8 % (11.5-14.5); WBC 4.52 10*3/uL (4.50-10.00)
[2024-07-23 04:53] LABS: African American GFR (CKD) >90 (>60 ml/min/1.73 sqM); Anion Gap 7 mmol/L; Blood Urea Nitrogen 17 mg/dL (9-20); Calcium 8.7 mg/dL (8.4-10.2); Carbon Dioxide 23 mmol/L (22-30); Chloride 107 mmol/L (98-107); Glucose 112 mg/dL (74-99); Magnesium 1.9 mg/dL (1.6-2.3); Non-African American GFR(CKD) >90 (>60 ml/min/1.73 sqM); Phosphorus 2.8 mg/dL (2.5-4.5); Potassium 3.8 mmol/L (3.5-5.1); Sodium 137 mmol/L (137-145)
[2024-07-23] MEDS: MAGNESIUM SULFATE-D5W PMX 1 GM in DEXTROSE/WATER 1 100ML.BAG IVPB ONE (05:17)
[2024-07-23 06:06] LABS: Glucose,Whole Blood 129 mg/dL (70-110)
[2024-07-23] MEDS: POTASSIUM CHLORIDE 10 MEQ in WATER FOR INJECTION 1 100ML.BAG IVPB SCH (06:20)
--- NOTE | 2024-07-23 08:14 | XR ---
EXAMINATION TYPE: XR chest 1V portable DATE OF EXAM: 07/23/2024 5:46 AM COMPARISON: Multiple radiographs, with the most recent on 07/22/2024 TECHNIQUE: XR chest 1V portable Portable AP radiograph of the chest. CLINICAL INDICATION:Male, 49 years old with history of mechanical ventilation; FINDINGS: Lungs/Pleura: No pleural effusion or pneumothorax. No focal consolidation. Low lung volumes. Pulmonary vascularity: Unremarkable. Heart/mediastinum: Cardiomediastinal silhouette is unremarkable. Musculoskeletal: No acute osseous pathology. Other findings: Surgical clips within the right supraclavicular region. Lines/Tubes: Left IJ approach central venous catheter with distal tip at the superior cavoatrial junction. Tracheostomy cannula is in stable position. IMPRESSION: Low lung volumes with stable support lines and tubes. [facility], , 07/23/2024 8:11 AM
[2024-07-23] MEDS ORDERED: SODIUM CHLORIDE 0.9% 500 ML IV SCH (09:15)
[2024-07-23] MEDS: CISATRACURIUM 2 MG/ML 5 ML VIAL IV ONE ×2 (09:30→10:33)
[2024-07-23 10:18] LABS: ABG HCO3 26 mmol/L (21-25); ABG Oxygen Saturation 91.8 % (94-97); ABG PO2 80 mmHg (83-108); ABG TCO2 28 mmol/L (19-24); Allen Test Performed? Yes
[2024-07-23 10:29] LABS: ABG PCO2 76 mmHg (35-45); ABG PH 7.14 (7.35-7.45)
[2024-07-23] MEDS: SODIUM CHLORIDE 0.9% 1,000 ML IV SCH (10:39)
--- NOTE | 2024-07-23 10:59 | XR ---
EXAMINATION TYPE: XR chest 1V DATE OF EXAM: 07/23/2024 10:53 AM COMPARISON: Multiple radiographs, with the most recent on 07/23/2024 TECHNIQUE: XR chest 1V Portable AP radiograph of the chest. CLINICAL INDICATION:Male, 49 years old with history of Respiratory Distress; FINDINGS: Lungs/Pleura: No pleural effusion or pneumothorax. No focal consolidation. Low lung volumes. Pulmonary vascularity: Unremarkable. Heart/mediastinum: Cardiomediastinal silhouette is unremarkable. Musculoskeletal: No acute osseous pathology. Other findings: Surgical clips within the right supraclavicular region. Lines/Tubes: Left IJ approach central venous catheter with distal tip at the superior cavoatrial junction. Tracheostomy cannula is in stable position. IMPRESSION: Low lung volumes with stable support lines and tubes. No significant change from prior exam. [facility], , 07/23/2024 10:57 AM
[2024-07-23 11:44] LABS: Glucose,Whole Blood 152 mg/dL (70-110)
--- NOTE | 2024-07-23 11:55 | P.PN ---
Subjective Progress Note Date: 07/23/24 This is a 49-year-old male patient with a known history of recurrent ventilatory dependent respiratory failure secondary to pneumonias and mucous plugging, Crohn's disease, status post colectomy and diverting ileostomy, tracheobronchomalacia, DVT, CVA/TIA, right below the knee amputation, history of cardiac arrest in 2021. He was recently treated for Pseudomonas aeruginosa and corynebacterium stratum noted on bronchoscopy wash from 07/04/2024. He was on and off the ventilator throughout his stay wean admission on 06/19/2024 to discharge on 07/16/2024 to [facility]. Discharge planning had worked hard on finding a bed for him. All of his hospital stay information was reviewed with their liaison who accepted the patient. He has used up all his long-term acute care days. [facility] received the patient on 07/16/2024 and only kept him maybe a few hours and sent him back here to the emergency room stating they are unable to take care of him. We saw the patient on consultation on 07/17/2024, and considering the patient was doing fairly well, we recommended that the patient could be discharged home. However patient came back yesterday with recurrent episodes of shortness of breath, possibly related to worsening tracheal secretions and possibly sometimes mucous plugging. We saw the patient again today, he seems to be very comfortable, not in any distress, on trach collar, and his chest x-ray showed mostly minimal atelectasis no clear-cut evidence of pneumonia. Patient had a relatively normal CBC with WBC count of 8.9 hemoglobin 12.6 electrolytes are normal renal profile is normal, we believe the patient was mostly readmitted only because of placement issues. The patient is seen today July 20, 2024 in follow-up in the intensive care unit. Transferred here from 3 . after a rapid response team was called on him for worsening shortness of breath and hypotension. He was placed back on mechanical ventilator. Current settings assist-control mode at a rate of 20, tidal volume 500, FiO2 60% and a PEEP of 5. Blood gases unable to be obtained per respiratory therapy. White count 10.5. Hemoglobin 11.4. Platelets 185. Sodium 136. Potassium 5.0. Bicarb 27. BUN 38. Creatinine 0.57. Glucose 116. Procalcitonin 1.05. Urinalysis with large leukocyte Estrace, high WBCs, high RBCs. Culture pending. Current temperature 101.1. Chest x-ray reveals left basilar linear atelectasis with some similar right basilar airspace opacities. Left IJ approach dual-lumen PICC line in place. Tracheostomy cannula in stable position. He remains on DuoNeb inhalations. Receiving TPN currently at 30 mL/h with a goal of 95 mL/h. Lipids every 72 hours. He remains on therapeutic Lovenox at 90 mg SQ every 12 hours. Continued on vancomycin and Avycaz. The patient is seen today July 21, 2024 in follow-up in the intensive care unit. He is currently awake and alert. Not requiring any sedation. He remains on the mechanical ventilator currently on assist-control mode with a tidal volume of 500, FiO2 30% and a PEEP of 5. He remains on antibiotics in the form of vancomycin and Avycaz. Receiving normal saline at 75 mL/h. Electrolytes are being replaced. He is on TPN at 95 mL/h. Lipids every 72 hours. Urine culture revealed no growth. Sputum culture pending. White count 8.6. Hemoglobin 8.6. Platelets 139. Sodium 140. Potassium 2.5. Bicarb 23. BUN 25. Creatinine 0.35. AST 21. ALT 29. He remains on therapeutic Lovenox. He is currently afebrile. Hemodynamically stable. The patient is seen today July 22, 2024 in follow-up in the intensive care unit. He is currently at and alert in no acute distress. He has been trialed on trach collar only lasted approximately 30 minutes yesterday. He has been on trach collar 40% FiO2 today. He asked to go back on the vent stating he cannot breathe. When on the vent he is on assist-control mode at a rate of 20, tidal volume 500, FiO2 30% and a PEEP of 5. He has normal saline at 75 mL/h. TPN at 95 mL/h. Receiving lipids every 72 hours. Sputum culture is positive for Pseudomonas aeruginosa. Blood culture pending. Urine culture revealed no growth. Chest x-ray continues to show similar bibasilar airspace opacities most likely atelectasis versus infiltrate. White count 4.7. Hemoglobin 8.7. Platele ts 144. Sodium 143. Potassium 3.8. Bicarb 23. BUN 20. Creatinine 0.40. Glucose 110. Sharlene on vancomycin and Avycaz. Continued on DuoNeb inhalations. Lovenox for anticoagulation. Receiving Ativan 1 mg IV every 6 hours as needed for anxiety. The patient is seen today July 23, 2024 in follow-up in the intensive care unit. He is currently on the mechanical ventilator in assist-control mode 20, tidal volume 500, FiO2 30% and a PEEP of 5. Off sedation currently. Awake and alert in no acute distress. He is being nourished with TPN at 95 mL/h. Lipids every 72 hours. He has normal saline at 75 mL/h. He is continued on DuoNeb inhalations. Therapeutic Lovenox. He remains on vancomycin and Avycaz. Chest x-ray continues to show low lung volumes with tracheostomy cannula in stable po sition. Urine culture was positive for Pseudomonas aeruginosa. Urine culture revealed no growth. Blood culture revealed no growth. Hemoglobin 8.1. Platelets 156. Sodium 137. Potassium 3.8. Bicarb 23. BUN 17. Creatinine 0.34. Glucose 112. Arterial blood gases on 100% FiO2 revealed a PO2 of 80, PCO2 76 and a pH of 7.14. Objective - Vital Signs Vital signs: Vital Signs Temp 99.1 F 07/23/24 08:00 Pulse 68 07/23/24 11:25 Resp 20 07/23/24 11:00 BP 103/51 07/23/24 10:00 Pulse Ox 87 L 07/23/24 11:00 FiO2 30 07/23/24 11:16 Intake & Output 07/22/24 07/23/24 07/23/24 18:59 06:59 18:59 Intake Total 2453 2167.5 765 Output Total 1050 2175 449 Balance 1403 -7.5 316 Weight 96.5 kg 96.5 kg Intake: IV 1725 1100 765 Ceftazidime/Avibactam 2.5 100 gm In Sodium Chloride 0. 9% 100 ml @ 50 mls/hr IVPB Q8H [facility] Rx#: [id number] Ceftolozane/Tazobactam 3 100 100 gm In Sodium Chloride 0.9 % 100 ml @ 100 mls/hr IV Q8HR [facility] Rx#:[id number] Magnesium Sulfate-D5w Pmx 100 1 gm In Dextrose/Water 1 100ml.bag @ 100 mls/hr IVPB Q1H [facility] Rx#: [id number] Mvi, Adult No.4 with Vit 190 K 10 ml Trace (Conc-1Ml/ Dose) 1 ml Sodium Chloride 4Meq/ml Vial 64 meq Potassium Chloride 10 meq Calcium Gluconate 1 gm Magnesium Sulfate gm 1 gm Sodium Phosphate 21 mmol In Amino Acids 5 %/ Dextrose 20 % 1,000 ml @ 95 mls/hr IV .BY DURATION [facility] Rx#:[id number] Potassium Chloride 10 meq 300 100 In Water For Injection 1 100ml.bag @ 100 mls/hr IVPB Q1H [facility] Rx#: [id number] Sodium Chloride 0.9% 500 825 900 375 ml 500 ml @ 75 mls/hr IV .Q6H40M [facility] Rx#:[id number] Vancomycin 1,500 mg In 500 Sodium Chloride 0.9% 500 ml 500 ml @ 167 mls/hr IVPB Q16H [facility] Rx#: [id number] Intake, IV Titration 1046.5 Amount Sodium Chloride 4Meq/ml 1046.5 Vial 50 meq Potassium Chloride 10 meq Calcium Gluconate 1 gm Magnesium Sulfate gm 1 gm Sodium Phosphate 21 mmol Potassium Acetate 20 meq In Amino Acids 5 %/ Dextrose 20 % 1,000 ml @ 95 mls/hr IV .BY DURATION [facility] Rx#:[id number] TPN/PPN 665 Mvi, Adult No.4 with Vit 665 K 10 ml Trace (Conc-1Ml/ Dose) 1 ml Sodium Chloride 4Meq/ml Vial 64 meq Potassium Chloride 10 meq Calcium Gluconate 1 gm Magnesium Sulfate gm 1 gm Sodium Phosphate 21 mmol In Amino Acids 5 %/ Dextrose 20 % 1,000 ml @ 95 mls/hr IV .BY DURATION [facility] Rx#:[id number] Lipid 63 21 Fat Emulsion 20% 250 ml 63 21 In Empty Bag 1 bag @ 21 mls/hr IV Q72H [facility] Rx#: [id number] Output: Urine 850 1275 449 Stool 200 900 Other: Voiding Method Indwelling Catheter Indwelling Catheter ABP, PAP, CO, CI - Last Documented Arterial Blood Pressure 176/76 - Exam GENERAL EXAM: Awake, alert 49-year-old male, on the mechanical ventilator, in no apparent distress. HEAD: Normocephalic. EYES: Normal reaction of pupils, equal size. NOSE: Clear with pink turbinates. THROAT: Tracheostomy tube secured in place. No erythema or exudates. NECK: No masses, no JVD. CHEST: No chest wall deformity. LUNGS: Equal air entry with coarse rhonchi bilaterally. CVS: S1 and S2 normal with no audible murmur, regular rhythm. ABDOMEN: Enterocutaneous fistula over the abdominal wall. No hepatosplenomegaly, normal bowel sounds. SPINE: No scoliosis or deformity SKIN: No rashes CENTRAL NERVOUS SYSTEM: No focal deficits, tone is normal in all 4 extremities. EXTREMITIES: Extensive muscle atrophy. Contractures. There is no peripheral edema. No clubbing, no cyanosis. Peripheral pulses are intact. - Labs CBC & Chem 7: 07/23/24 04:00 07/23/24 04:00 Labs: Abnormal Lab Results - Last 24 Hours (Table) 07/22/24 07/22/24 07/22/24 Range/Units 13:38 17:38 23:37 RBC (4.40-5.60) 10*6/uL Hgb (13.0-17.0) g/dL Hct (39.6-50.0) % MCH (27.0-32.0) pg MCHC (32.0-37.0) g/dL ABG pH (7.35-7.45) ABG pCO2 (35-45) mmHg ABG pO2 (83-108) mmHg ABG HCO3 (21-25) mmol/L ABG Total CO2 (19-24) mmol/L ABG O2 Saturation (94-97) % Hemoglobin (13.0-17.5) gm/dL Creatinine (0.66-1.25) mg/dL Glucose (74-99) mg/dL POC Glucose (mg/dL) 118 H 111 H 113 H (70-110) mg/dL 07/23/24 07/23/24 07/23/24 Range/Units 04:00 04:00 06:03 RBC 3.31 L (4.40-5.60) 10*6/uL Hgb 8.1 L (13.0-17.0) g/dL Hct 28.4 L (39.6-50.0) % MCH 24.5 L (27.0-32.0) pg MCHC 28.5 L (32.0-37.0) g/dL ABG pH (7.35-7.45) ABG pCO2 (35-45) mmHg ABG pO2 (83-108) mmHg ABG HCO3 (21-25) mmol/L ABG Total CO2 (19-24) mmol/L ABG O2 Saturation (94-97) % Hemoglobin (13.0-17.5) gm/dL Creatinine 0.34 L (0.66-1.25) mg/dL Glucose 112 H (74-99) mg/dL POC Glucose (mg/dL) 129 H (70-110) mg/dL 07/23/24 Range/Units 10:16 RBC (4.40-5.60) 10*6/uL Hgb (13.0-17.0) g/dL Hct (39.6-50.0) % MCH (27.0-32.0) pg MCHC (32.0-37.0) g/dL ABG pH 7.14 L* (7.35-7.45) ABG pCO2 76 H* (35-45) mmHg ABG pO2 80 L (83-108) mmHg ABG HCO3 26 H (21-25) mmol/L ABG Total CO2 28 H (19-24) mmol/L ABG O2 Saturation 91.8 L (94-97) % Hemoglobin 10.1 L (13.0-17.5) gm/dL Creatinine (0.66-1.25) mg/dL Glucose (74-99) mg/dL POC Glucose (mg/dL) (70-110) mg/dL Microbiology - Last 24 Hours (Table) 07/20/24 15:20 Blood Culture - Preliminary Blood 07/20/24 08:46 Gram Stain - Final Sputum Sputum Culture - Final Pseudomonas aeruginosa Assessment and Plan Assessment: Acute on chronic hypoxemic and hypercapnic respiratory failure, mainly secondary to recurrent mucous plugging. Rapid response team was called on 07/19/2024 due to hypoxemia and hypotension. He was transferred to the ICU and placed back on the mechanical ventilator. The patient has had multiple bronchoscopies with BAL with the most recent July 07, 2024 Hypotension requiring fluid resuscitation Another extended stay within the hospital from June 19, 2024 to July 16, 2024 for multiple medical issues including a left lower lobe pneumonia. Bronchoscopy 06/22/2024 with cultures positive for Pseudomonas aeruginosa and corynebacterium striatum. Repeat bronchoscopy with BAL 07/04/2024 again with Pseudomonas aeruginosa. Most likely a colonizer. Sputum culture still positive for Pseudomonas on 07/20/2024. Remains on vancomycin and Avycaz History of recurrent ventilator dependent respiratory failure, secondary to pneumonia and mucous plugging Anxiety Tracheal stenosis History of sepsis, secondary to pneumonia Crohn's disease, with previous bowel perforation, status post colectomy and diverting ileostomy Tracheobronchomalacia History of DVT History of CVA/TIA Right below the knee amputation History of asystole/cardiac arrest, 2021 Plan: The patient was seen and evaluated Chest x-ray, ABGs, labs and medications reviewed Right femoral art line placed today Remains on TPN and lipids for nutritional support Remains on therapeutic Lovenox Continue bronchodilators Continued on vancomycin and Avycaz Continue frequent suctioning as necessary We will continue to follow I have personally seen and examined the patient, performed the documentation and the assessment and plan as written. Number of minutes spent on the visit: 15 Dictation was produced using [employer] dictation software. Please excuse any grammatical, word or spelling errors.
--- NOTE | 2024-07-23 15:36 | P.PN ---
Subjective Progress Note Date: 07/23/24 Principal diagnosis: Reason for follow-up is sepsis and pneumonia Patient is a 49-year-old male with multiple comorbidities including Crohn's disease status post colectomy diverting ileostomy tracheobronchomalacia CVA TIA cardiac arrest and history of recurrent pneumonias secondary to mucous plugging patient was recently discharged from this facility has been brought back to the hospital concerning for increasing shortness of breath and hypoxemia, patient did have worsening respiratory status requiring intubation and admission to the ICU. On today's evaluation that is 07/23/2024, Patient is afebrile patient is currently intubated on the vent currently seem to have a problem with mucous plugging and requiring bagging and suctioning this morning patient is currently on the vent FiO2 currently 30% requiring any pressor support. Patient white count is 4.52, creatinine 0.34 Objective - Vital Signs Vital signs: Vital Signs Temp 99.1 F 07/23/24 08:00 Pulse 68 07/23/24 11:25 Resp 20 07/23/24 11:00 BP 103/51 07/23/24 10:00 Pulse Ox 87 L 07/23/24 11:00 FiO2 30 07/23/24 11:16 Intake & Output 07/22/24 07/23/24 07/23/24 18:59 06:59 18:59 Intake Total 2453 2167.5 765 Output Total 1050 2175 449 Balance 1403 -7.5 316 Weight 96.5 kg 96.5 kg Intake: IV 1725 1100 765 Ceftazidime/Avibactam 2.5 100 gm In Sodium Chloride 0. 9% 100 ml @ 50 mls/hr IVPB Q8H [facility] Rx#: [id number] Ceftolozane/Tazobactam 3 100 100 gm In Sodium Chloride 0.9 % 100 ml @ 100 mls/hr IV Q8HR [facility] Rx#:[id number] Magnesium Sulfate-D5w Pmx 100 1 gm In Dextrose/Water 1 100ml.bag @ 100 mls/hr IVPB Q1H [facility] Rx#: [id number] Mvi, Adult No.4 with Vit 190 K 10 ml Trace (Conc-1Ml/ Dose) 1 ml Sodium Chloride 4Meq/ml Vial 64 meq Potassium Chloride 10 meq Calcium Gluconate 1 gm Magnesium Sulfate gm 1 gm Sodium Phosphate 21 mmol In Amino Acids 5 %/ Dextrose 20 % 1,000 ml @ 95 mls/hr IV .BY DURATION [facility] Rx#:[id number] Potassium Chloride 10 meq 300 100 In Water For Injection 1 100ml.bag @ 100 mls/hr IVPB Q1H [facility] Rx#: [id number] Sodium Chloride 0.9% 500 825 900 375 ml 500 ml @ 75 mls/hr IV .Q6H40M [facility] Rx#:[id number] Vancomycin 1,500 mg In 500 Sodium Chloride 0.9% 500 ml 500 ml @ 167 mls/hr IVPB Q16H [facility] Rx#: [id number] Intake, IV Titration 1046.5 Amount Sodium Chloride 4Meq/ml 1046.5 Vial 50 meq Potassium Chloride 10 meq Calcium Gluconate 1 gm Magnesium Sulfate gm 1 gm Sodium Phosphate 21 mmol Potassium Acetate 20 meq In Amino Acids 5 %/ Dextrose 20 % 1,000 ml @ 95 mls/hr IV .BY DURATION [facility] Rx#:[id number] TPN/PPN 665 Mvi, Adult No.4 with Vit 665 K 10 ml Trace (Conc-1Ml/ Dose) 1 ml Sodium Chloride 4Meq/ml Vial 64 meq Potassium Chloride 10 meq Calcium Gluconate 1 gm Magnesium Sulfate gm 1 gm Sodium Phosphate 21 mmol In Amino Acids 5 %/ Dextrose 20 % 1,000 ml @ 95 mls/hr IV .BY DURATION [facility] Rx#:[id number] Lipid 63 21 Fat Emulsion 20% 250 ml 63 21 In Empty Bag 1 bag @ 21 mls/hr IV Q72H [facility] Rx#: [id number] Output: Urine 850 1275 449 Stool 200 900 Other: Voiding Method Indwelling Catheter Indwelling Catheter Indwelling Catheter ABP, PAP, CO, CI - Last Documented Arterial Blood Pressure 176/76 - Exam GENERAL DESCRIPTION: Middle-age male lying in bed in no distress RESPIRATORY SYSTEM: Unlabored breathing , decreased breath sounds at bases HEART: S1 S2 regular rate and rhythm , ABDOMEN: Soft , no tenderness EXTREMITIES: Some swelling to the leg but no redness - Labs CBC & Chem 7: 07/23/24 04:00 07/23/24 04:00 Labs: Abnormal Lab Results - Last 24 Hours (Table) 07/22/24 07/22/24 07/22/24 Range/Units 13:38 17:38 23:37 RBC (4.40-5.60) 10*6/uL Hgb (13.0-17.0) g/dL Hct (39.6-50.0) % MCH (27.0-32.0) pg MCHC (32.0-37.0) g/dL ABG pH (7.35-7.45) ABG pCO2 (35-45) mmHg ABG pO2 (83-108) mmHg ABG HCO3 (21-25) mmol/L ABG Total CO2 (19-24) mmol/L ABG O2 Saturation (94-97) % Hemoglobin (13.0-17.5) gm/dL Creatinine (0.66-1.25) mg/dL Glucose (74-99) mg/dL POC Glucose (mg/dL) 118 H 111 H 113 H (70-110) mg/dL 07/23/24 07/23/24 07/23/24 Range/Units 04:00 04:00 06:03 RBC 3.31 L (4.40-5.60) 10*6/uL Hgb 8.1 L (13.0-17.0) g/dL Hct 28.4 L (39.6-50.0) % MCH 24.5 L (27.0-32.0) pg MCHC 28.5 L (32.0-37.0) g/dL ABG pH (7.35-7.45) ABG pCO2 (35-45) mmHg ABG pO2 (83-108) mmHg ABG HCO3 (21-25) mmol/L ABG Total CO2 (19-24) mmol/L ABG O2 Saturation (94-97) % Hemoglobin (13.0-17.5) gm/dL Creatinine 0.34 L (0.66-1.25) mg/dL Glucose 112 H (74-99) mg/dL POC Glucose (mg/dL) 129 H (70-110) mg/dL 07/23/24 07/23/24 Range/Units 10:16 11:43 RBC (4.40-5.60) 10*6/uL Hgb (13.0-17.0) g/dL Hct (39.6-50.0) % MCH (27.0-32.0) pg MCHC (32.0-37.0) g/dL ABG pH 7.14 L* (7.35-7.45) ABG pCO2 76 H* (35-45) mmHg ABG pO2 80 L (83-108) mmHg ABG HCO3 26 H (21-25) mmol/L ABG Total CO2 28 H (19-24) mmol/L ABG O2 Saturation 91.8 L (94-97) % Hemoglobin 10.1 L (13.0-17.5) gm/dL Creatinine (0.66-1.25) mg/dL Glucose (74-99) mg/dL POC Glucose (mg/dL) 152 H (70-110) mg/dL Microbiology - Last 24 Hours (Table) 07/20/24 15:20 Blood Culture - Preliminary Blood 07/20/24 08:46 Gram Stain - Final Sputum Sputum Culture - Final Pseudomonas aeruginosa Assessment and Plan (1) Pneumonia Current Visit: No Status: Acute Code(s): J18.9 - PNEUMONIA, UNSPECIFIED ORGANISM SNOMED Code(s): 763127279 (2) Sepsis Current Visit: No Status: Acute Code(s): A41.9 - SEPSIS, UNSPECIFIED ORGANISM SNOMED Code(s): 16724660 Plan: 1patient with sepsis in this patient who did have fever tachycardia elevated white count meeting currently for SIRS source is likely pneumonia etiology could be mucous plugging and inadequate suction in the outpatient setting plus minus a catheter associated as a patient also significantly positive UA. 2sputum culture has been requested which are currently growing Pseudomonas sens itivities pending urine culture have been negative blood culture so far negative 3patient sputum positive for Pseudomonas now resistant to Avycaz which has discontinued patient started on Zerbaxa and will monitor clinical course closely Dictation was produced using [employer] dictation software. please excuse any grammatical, word or spelling errors. Time with Patient: Less than 30
--- NOTE | 2024-07-23 15:36 | P.PN ---
Subjective Progress Note Date: 07/22/24 Principal diagnosis: Reason for follow-up is sepsis and pneumonia Patient is a 49-year-old male with multiple comorbidities including Crohn's disease status post colectomy diverting ileostomy tracheobronchomalacia CVA TIA cardiac arrest and history of recurrent pneumonias secondary to mucous plugging patient was recently discharged from this facility has been brought back to the hospital concerning for increasing shortness of breath and hypoxemia, patient did have worsening respiratory status requiring intubation and admission to the ICU. On today's evaluation that is 07/22/2024, the patient running a fever of 99.2 F the patient remains to be intubated on the vent FiO2 is currently stable at 30% no worsening secretion through the ET or any changes reported by the nursing staff Patient white count is 4.75 creatinine 0.40 Vanco trough is 16.2 Pseudomonas now resistant to Avycaze Objective - Vital Signs Vital signs: Vital Signs Temp 99.2 F 07/22/24 08:00 Pulse 80 07/22/24 11:49 Resp 27 H 07/22/24 10:00 BP 123/67 07/22/24 10:00 Pulse Ox 95 07/22/24 10:00 FiO2 30 07/22/24 11:32 Intake & Output 07/21/24 07/22/24 07/22/24 18:59 06:59 18:59 Intake Total 2070 2510 1280 Output Total 730 1960 500 Balance 1340 550 780 Weight 95.2 kg Intake: IV 825 1165 900 Mvi, Adult No.4 with Vit 190 K 10 ml Trace (Conc-1Ml/ Dose) 1 ml Sodium Chloride 4Meq/ml Vial 64 meq Potassium Chloride 10 meq Calcium Gluconate 1 gm Magnesium Sulfate gm 1 gm Sodium Phosphate 21 mmol In Amino Acids 5 %/ Dextrose 20 % 1,000 ml @ 95 mls/hr IV .BY DURATION [facility] Rx#:[id number] Potassium Chloride 10 meq 100 In Water For Injection 1 100ml.bag @ 100 mls/hr IVPB Q1H [facility] Rx#: [id number] Sodium Chloride 0.9% 1, 225 000 ml @ 125 mls/hr IV . Q8H [facility] Rx#:[id number] Sodium Chloride 0.9% 500 600 975 300 ml 500 ml @ 75 mls/hr IV .Q6H40M [facility] Rx#:[id number] Vancomycin 1,500 mg In 500 Sodium Chloride 0.9% 500 ml 500 ml @ 167 mls/hr IVPB Q16H [facility] Rx#: [id number] Intake, IV Titration 300 Amount Potassium Chloride 20 meq 300 In Water For Injection 1 100ml.bag @ 50 mls/hr IVPB Q2H [facility] Rx#: [id number] Oral 200 TPN/PPN 1045 1045 380 Mvi, Adult No.4 with Vit 1045 1045 380 K 10 ml Trace (Conc-1Ml/ Dose) 1 ml Sodium Chloride 4Meq/ml Vial 64 meq Potassium Chloride 10 meq Calcium Gluconate 1 gm Magnesium Sulfate gm 1 gm Sodium Phosphate 21 mmol In Amino Acids 5 %/ Dextrose 20 % 1,000 ml @ 95 mls/hr IV .BY DURATION [facility] Rx#:[id number] Output: Urine 730 960 300 Stool 1000 200 Other: Voiding Method Indwelling Catheter Indwelling Catheter Indwelling Catheter - Exam GENERAL DESCRIPTION: Middle-age male lying in bed in no distress RESPIRATORY SYSTEM: Unlabored breathing , decreased breath sounds at bases HEART: S1 S2 regular rate and rhythm , ABDOMEN: Soft , no tenderness EXTREMITIES: Some swelling to the leg but no redness - Labs CBC & Chem 7: 07/23/24 04:00 07/23/24 04:00 Labs: Abnormal Lab Results - Last 24 Hours (Table) 07/21/24 07/22/24 07/22/24 Range/Units 16:35 05:20 05:54 RBC (4.40-5.60) 10*6/uL Hgb (13.0-17.0) g/dL Hct (39.6-50.0) % MCH (27.0-32.0) pg MCHC (32.0-37.0) g/dL Potassium 3.1 L (3.5-5.1) mmol/L Chloride 111 H (98-107) mmol/L Creatinine 0.40 L (0.66-1.25) mg/dL Glucose 110 H (74-99) mg/dL POC Glucose (mg/dL) 125 H (70-110) mg/dL 07/22/24 Range/Units 05:54 RBC 3.41 L (4.40-5.60) 10*6/uL Hgb 8.7 L (13.0-17.0) g/dL Hct 29.8 L (39.6-50.0) % MCH 25.5 L (27.0-32.0) pg MCHC 29.2 L (32.0-37.0) g/dL Potassium (3.5-5.1) mmol/L Chloride (98-107) mmol/L Creatinine (0.66-1.25) mg/dL Glucose (74-99) mg/dL POC Glucose (mg/dL) (70-110) mg/dL Microbiology - Last 24 Hours (Table) 07/20/24 15:20 Blood Culture - Preliminary Blood 07/20/24 08:46 Gram Stain - Preliminary Sputum Sputum Culture - Preliminary Pseudomonas aeruginosa Assessment and Plan (1) Pneumonia Current Visit: No Status: Acute Code(s): J18.9 - PNEUMONIA, UNSPECIFIED ORGANISM SNOMED Code(s): 952125948 (2) Sepsis Current Visit: No Status: Acute Code(s): A41.9 - SEPSIS, UNSPECIFIED ORGANISM SNOMED Code(s): 24693976 Plan: 1patient with sepsis in this patient who did have fever tachycardia elevated white count meeting currently for SIRS source is likely pneumonia etiology could be mucous plugging and inadequate suction in the outpatient setting plus minus a catheter associated as a patient also significantly positive UA. 2sputum culture has been requested which are currently growing Pseudomonas sensitivities pending urine culture have been negative blood culture so far negative 3patient sputum negative for gram-positive vancomycin discontinued Pseudomonas now resistant to Avycaz we will discontinue Avycaze and start the patient on Zerbaxa Dictation was produced using [employer] dictation software. please excuse any grammatical, word or spelling errors. Time with Patient: Less than 30
--- NOTE | 2024-07-23 17:21 | OP ---
OPERATIVE REPORT DATE OF SERVICE : PROCEDURE PERFORMED: Right femoral arterial line. PREOPERATIVE DIAGNOSIS: Frequent blood draws and blood gas monitoring. POSTOPERATIVE DIAGNOSIS: Frequent blood draws and blood gas monitoring. PHOTOGRAPHIC ARTIST: Dr. Arenas and Dr. Zepeda. There was informed consent and universal timeout. Indications: Hemodynamic monitoring. A time-out was completed verifying correct patient, procedure, site, positioning, and implant(s) or special equipment if applicable. Issa's test was performed to ensure adequate perfusion. The patient's right/left wrist or right/left groin was prepped and draped in sterile fashion. 1% Lidocaine was used to anesthetize the area. An 18G Arrow arterial line was introduced into the femoral artery. The catheter was threaded over the guide wire and the needle was removed with appropriate pulsatile blood return. Blood loss was minimal. The catheter was then sutured in place to the skin and a sterile dressing applied. Perfusion to the extremity distal to the point of catheter insertion was checked and found to be adequate. There was good blood return and waveform. The catheter was sutured in place. There were no complications. The sterile dressing was applied by the nurse. The patient tolerated the procedure well without difficulty. MMODL / IJN: [id number] /
[2024-07-23 17:34] LABS: Glucose,Whole Blood 94 mg/dL (70-110)
[2024-07-23] MEDS ORDERED: 1: MVI, ADULT NO.4 WITH VIT K 10 ML, TRACE (CONC-1ML/DOSE) 1 ML, SODIUM CHLORIDE 4MEQ/ML IV SCH (20:30)
--- NOTE | 2024-07-23 20:47 | P.PN ---
Subjective Progress Note Date: 07/23/24 This is a 49-year-old male with medical history significant for Crohn's disease with ileostomy maintained on TPN, tracheobronchomalacia with history of tracheal stenosis requiring tracheostomy placement. Patient also with history of stroke, DVT and chronic medical debility with contractures of his hands bilaterally, and right arm weakness. Patient has had prolonged hospital stay secondary to a Pseudomonas pneumonia and difficulty weaning off the ventilator. He was tolerating trach collar secretions had been improved and he completed a course of IV antibiotics and was discharged to [facility] for rehabilitation. He was brought back in from the [facility] with reports that he was too much care for t he assisted staff. He is not a candidate for LTAC as he has been stable on the trach collar and he has no more [facility] days left this calendar year. Discussed with [employer] and they will provide the TPN and patient to be set up with visiting physicians. He was home again for 24 hours and came back to the hospital with complaints of difficulty breathing and sates the suctioning and trach care performed by his mother and son is not going well. He states he had increased secretions. He is not having any chest pains. He is awake and alert, oriented. He has a flat affect. He is unsure what to do and where to discharge to. Social work will be back on Saturday for follow up and assistance with DC planning. White blood cell count 8.96, hgb 12.6, sodium 139, potassium 4.8, BUN 28, creatinine 0.38. Glucose 124. He will be resumed on TPN through the PEG tube. 07/20/2024 Patient is evaluated today in follow up in the ICU. He had developed a suspected mucous plugging of the trach yesterday with respiratory distress and moved to the ICU. He is now on the ventilator with FiO2 of 60%. Chest xray this morning reveals left basilar linear atelectasis with similar right basilar airspace opa cities which may represent atelectasis versus infiltrates. Patient has been started on IV ceftazidime/avibactam with infectious disease and pulmonology following closely. Patient has been resumed on home TPN/Lipids. His ostomy is functioning and draining well. Patient and his mother are upset at the options available, he is unable to go to LTAC due to insurance issues. He was only at the [facility] for 24 hours due to staffing issues and his high level of care. He was home for 24 hours and came back with increased secretions and mucous plugging. The patients mother when asked states she does not know what to do. He will be in the ICU at this time on IV antibiotics and will follow up tomorrow with social work and patient to discuss options and discharge planning needs. He was febrile overnight with T-max 100.3. Sputum culture was collected. White blood cell 10.56, hgb 11.4, BUN 136, potassium 5.0, BUN 38, creatinine 0.57, phos 1.3. Urine is significantly abnormal. Procalcitonin elevated at 1.05. 07/21/2024 Patient evaluated today in follow up in the ICU. Remains on the mechanical ve ntilator with FiO2 40% and PEEP of 5. He is awake alert and oriented. Yesterday discussion was had and family and patient have requested transfer to tertiary care. Discussed the case with [facility] and the decision went to their medical review board. They have declined this patient. Sputum colture growing pseudomonas auerginosa. He remains on the IV ceftazidime/avibactam. Chest xray reveals similar bibasilar airspace opacities which may represent atelectasis vs. infiltrates. Stable support lines and tubes. Labs reveal white blood cell count 8.63, sodium 140, potassium 2.5, BUN 25, creatinine 0.35, nikkie 1.6. Fever has improved. 07/22/2024 Patient is evaluated today in follow up in the intensive care unit. He remains on the mechanical ventilator through the tracheostomy. FiO2 of 30%. He is in a better mood today. Chest xray reveals similar bibasilar airspace opacities which may represent atelectasis vs. infiltrates. Stable support lines and tubes. Sputum culture reveals pseudomonas aeurginosa. He continues on the IV avycaz. 07/23/2024 Patient is evaluated today in follow up remains in the ICU. Patient had respiratory distress today requiring bagging with concern for mucous plugging. Chest xray reviewed with findings of low lung volumes with stable support lines and tubes. No significant change from prior. Patient has been transitioned to IV zerbaxa as the pseudomonas culture now shows resistance to the avycaz. WBC 4.52, hgb 8.1, sodium 137, potassium 3.8, BUN 17, creatinine 0.34. Magnesium 1.9. REVIEW OF SYSTEMS: CONSTITUTIONAL: No fever, no malaise, no fatigue. HEENT: No recent visual problems or hearing problems. Denied any sore throat. CARDIOVASCULAR: No chest pain, orthopnea, PND, no palpitations, no syncope. PULMONARY: Reports shortness of breath and increased secretions GASTROINTESTINAL: No diarrhea, no nausea, no vomiting, no abdominal pain. NEUROLOGICAL: No headaches, no weakness, no numbness. PHYSICAL EXAMINATION: GENERAL: The patient is alert and oriented x3, not in any acute distress. Well developed, well nourished. HEENT: Pupils are round and equally reacting to light. EOMI. No scleral icterus. No conjunctival pallor. Normocephalic, atraumatic. No pharyngeal erythema. No thyromegaly. Trach in place. On the ventilator. CARDIOVASCULAR: S1 and S2 present. No murmurs, rubs, or gallops. PULMONARY: Chest is clear to auscultation, no wheezing or crackles. ABDOMEN: Soft, nontender, nondistended, normoactive bowel sounds. No palpable organomegaly. Ileostomy in place and functioning with liquid stools. MUSCULOSKELETAL: No joint swelling or deformity. EXTREMITIES: No cyanosis, clubbing, or pedal edema. Right BKA. NEUROLOGICAL: Gross neurological examination did not reveal any focal deficits. Contractures of hands bilaterally. SKIN: No rashes. Assessment and Plan - Acute on chronic hypoxemic and hypercapnic respiratory failure, mainly secondary to mucous plugging. S/P ateam and now requiring mechanical ventilator. - Prolonged hospital stay and vent dependency - Hypotension with concern for sepsis - Urinary tract infection, POA - Pseudomonas pneumonia history likely a colonizer; repeat sputum pending - Crohn's disease with ileostomy in the past patient is presently on TPN - Right sided otitis media resolved - Tracheobronchomalacia - CVA TIA - History of DVT - Chronic medical debility with contractures of hands bilaterally - Hx of right BKA GI prophylaxis DVT prophylaxis Plan Resume home medications Continue routine trach care with suctioning PRN Continue TPN Ileostomy functioning Patient has been placed back on the mechanical ventilator due to mucous plugging and respiratory distress Patient had evidence of mucous plugging again today. All medications changed to IV route if possible. Continue bronchodilators ID on consultation and patient has now been transitioned to IV zerbaxa. Urine culture negative and blood culture negative so far Patient is status post 3L of normal saline and will continue at normal saline 75 mls/hr Pulmonary critical care recommended tertiary care center and [facility] has denied the transfer request. Social work on for discharge planning. Monitor electrolyes and renal function The impression and plan of care has been dictated by Coral Medina, Nurse Practitioner as directed. Dr. Mo MD I have performed a history and physical examination and medical decision making of this patient, discussed the same with the dictator, and agree with the dictators assessment and plan as written, documented as a scribe. Based on total visit time, I have performed more than 50% of this visit. Objective - Vital Signs Vital signs: Vital Signs Temp 99.0 F 07/23/24 16:00 Pulse 79 07/23/24 20:14 Resp 22 07/23/24 20:14 BP 112/70 07/23/24 18:00 Pulse Ox 99 07/23/24 19:00 FiO2 30 07/23/24 20:11 Intake & Output 07/23/24 07/23/24 07/24/24 06:59 18:59 06:59 Intake Total 2167.5 2230 Output Total 2175 2984 Balance -7.5 -754 Weight 96.5 kg 96.5 kg Intake: IV 1100 1880 Ceftolozane/Tazobactam 3 100 200 gm In Sodium Chloride 0.9 % 100 ml @ 100 mls/hr IV Q8HR [facility] Rx#:[id number] Magnesium Sulfate-D5w Pmx 100 1 gm In Dextrose/Water 1 100ml.bag @ 100 mls/hr IVPB Q1H [facility] Rx#: [id number] Mvi, Adult No.4 with Vit 610 K 10 ml Trace (Conc-1Ml/ Dose) 1 ml Sodium Chloride 4Meq/ml Vial 64 meq Potassium Chloride 10 meq Calcium Gluconate 1 gm Magnesium Sulfate gm 1 gm Sodium Phosphate 21 mmol In Amino Acids 5 %/ Dextrose 20 % 1,000 ml @ 95 mls/hr IV .BY DURATION [facility] Rx#:[id number] Potassium Chloride 10 meq 100 In Water For Injection 1 100ml.bag @ 100 mls/hr IVPB Q1H [facility] Rx#: [id number] Sodium Chloride 0.9% 500 900 970 ml 500 ml @ 75 mls/hr IV .Q6H40M [facility] Rx#:[id number] Intake, IV Titration 1046.5 Amount Sodium Chloride 4Meq/ml 1046.5 Vial 50 meq Potassium Chloride 10 meq Calcium Gluconate 1 gm Magnesium Sulfate gm 1 gm Sodium Phosphate 21 mmol Potassium Acetate 20 meq In Amino Acids 5 %/ Dextrose 20 % 1,000 ml @ 70 mls/hr IV .BY DURATION [facility] Rx#:[id number] TPN/PPN 350 Mvi, Adult No.4 with Vit 350 K 10 ml Trace (Conc-1Ml/ Dose) 1 ml Sodium Chloride 4Meq/ml Vial 50 meq Potassium Chloride 10 meq Calcium Gluconate 1 gm Magnesium Sulfate gm 1 gm Sodium Phosphate 21 mmol Potassium Acetate 24 meq In Amino Acids 5 %/ Dextrose 20 % 1,000 ml @ 70 mls/hr IV .BY DURATION [facility] Rx#:[id number] Lipid 21 Fat Emulsion 20% 250 ml 21 In Empty Bag 1 bag @ 21 mls/hr IV Q72H [facility] Rx#: [id number] Output: Urine 1275 1734 Stool 900 1250 Other: Voiding Method Indwelling Catheter Indwelling Catheter ABP, PAP, CO, CI - Last Documented Arterial Blood Pressure 147/70 - Labs CBC & Chem 7: 07/23/24 04:00 07/23/24 04:00 Labs: Abnormal Lab Results - Last 24 Hours (Table) 07/22/24 07/23/24 07/23/24 Range/Units 23:37 04:00 04:00 RBC 3.31 L (4.40-5.60) 10*6/uL Hgb 8.1 L (13.0-17.0) g/dL Hct 28.4 L (39.6-50.0) % MCH 24.5 L (27.0-32.0) pg MCHC 28.5 L (32.0-37.0) g/dL ABG pH (7.35-7.45) ABG pCO2 (35-45) mmHg ABG pO2 (83-108) mmHg ABG HCO3 (21-25) mmol/L ABG Total CO2 (19-24) mmol/L ABG O2 Saturation (94-97) % Hemoglobin (13.0-17.5) gm/dL Creatinine 0.34 L (0.66-1.25) mg/dL Glucose 112 H (74-99) mg/dL POC Glucose (mg/dL) 113 H (70-110) mg/dL 07/23/24 07/23/24 07/23/24 Range/Units 06:03 10:16 11:43 RBC (4.40-5.60) 10*6/uL Hgb (13.0-17.0) g/dL Hct (39.6-50.0) % MCH (27.0-32.0) pg MCHC (32.0-37.0) g/dL ABG pH 7.14 L* (7.35-7.45) ABG pCO2 76 H* (35-45) mmHg ABG pO2 80 L (83-108) mmHg ABG HCO3 26 H (21-25) mmol/L ABG Total CO2 28 H (19-24) mmol/L ABG O2 Saturation 91.8 L (94-97) % Hemoglobin 10.1 L (13.0-17.5) gm/dL Creatinine (0.66-1.25) mg/dL Glucose (74-99) mg/dL POC Glucose (mg/dL) 129 H 152 H (70-110) mg/dL Microbiology - Last 24 Hours (Table) 07/20/24 15:20 Blood Culture - Preliminary Blood Assessment and Plan Time with Patient: Less than 30
[2024-07-23] MEDS: 1: MVI, ADULT NO.4 WITH VIT K 10 ML, TRACE (CONC-1ML/DOSE) 1 ML, SODIUM CHLORIDE 4MEQ/ML IV SCH (21:54)
[2024-07-24 00:43] LABS: Glucose,Whole Blood 112 mg/dL (70-110)
[2024-07-24 04:40] LABS: Basophils # (A) 0.02 10*3/uL (0.00-0.10); Basophils % (A) 0.5 %; Eosinophils # (A) 0.23 10*3/uL (0.04-0.35); Eosinophils % (A) 5.5 %; HCT 27.9 % (39.6-50.0); HGB 8.3 g/dL (13.0-17.0); Lymphocytes # (A) 1.27 10*3/uL (0.90-5.00); Lymphocytes % (A) 30.6 %; MCH 25.1 pg (27.0-32.0); MCHC 29.7 g/dL (32.0-37.0); MCV 84.3 fL (80.0-97.0); Mean Platelet Volume 11.6 fL (9.5-12.2); Monocytes # (A) 0.33 10*3/uL (0.20-1.00); Neutrophils # (A) 2.29 10*3/uL (1.80-7.70); Neutrophils % (A) 55.2 %; Platelet Count 173 10*3/uL (140-440); RBC 3.31 10*6/uL (4.40-5.60); RDW 16.7 % (11.5-14.5); WBC 4.15 10*3/uL (4.50-10.00)
[2024-07-24 05:03] LABS: African American GFR (CKD) >90 (>60 ml/min/1.73 sqM); Anion Gap 5 mmol/L; Blood Urea Nitrogen 16 mg/dL (9-20); Calcium 8.4 mg/dL (8.4-10.2); Carbon Dioxide 23 mmol/L (22-30); Chloride 108 mmol/L (98-107); Glucose 105 mg/dL (74-99); Magnesium 1.8 mg/dL (1.6-2.3); Non-African American GFR(CKD) >90 (>60 ml/min/1.73 sqM); Phosphorus 3.3 mg/dL (2.5-4.5); Potassium 3.9 mmol/L (3.5-5.1); Sodium 136 mmol/L (137-145)
[2024-07-24] MEDS: MAGNESIUM SULFATE-D5W PMX 1 GM in DEXTROSE/WATER 1 100ML.BAG IVPB ONE (05:12)
[2024-07-24 05:15] LABS: ABG Base Excess 0.1 mmol/L; ABG HCO3 24 mmol/L (21-25); ABG Oxygen Saturation 99.8 % (94-97); ABG PCO2 37 mmHg (35-45); ABG PH 7.43 (7.35-7.45); ABG PO2 128 mmHg (83-108); ABG TCO2 26 mmol/L (19-24)
[2024-07-24 05:16] LABS: Allen Test Performed? no
[2024-07-24 06:14] LABS: Glucose,Whole Blood 109 mg/dL (70-110)
[2024-07-24] MEDS: POTASSIUM CHLORIDE 10 MEQ in WATER FOR INJECTION 1 100ML.BAG IVPB SCH (06:15)
--- NOTE | 2024-07-24 08:18 | XR ---
EXAMINATION TYPE: XR chest 1V portable DATE OF EXAM: 07/24/2024 5:47 AM COMPARISON: Chest radiographs from TECHNIQUE: XR chest 1V portable Portable AP radiograph of the chest. CLINICAL INDICATION:Male, 49 years old with history of intubated; FINDINGS: Patient is rotated which limits evaluation. Lungs/Pleura: No pleural effusion or pneumothorax. Development of left perihilar opacities. Pulmonary vascularity: Unremarkable. Heart/mediastinum: Cardiomediastinal silhouette is unremarkable. Musculoskeletal: No acute osseous pathology. Other findings: Surgical clips within the right supraclavicular region. Lines/Tubes: Left IJ approach central venous catheter with distal tip at the superior cavoatrial junction. Tracheostomy cannula is in stable position. IMPRESSION: 1. Development of left perihilar opacities concerning for pneumonia. 2. Stable support lines and tubes. [facility], , 07/24/2024 8:16 AM
--- NOTE | 2024-07-24 10:29 | P.PN ---
Subjective Progress Note Date: 07/24/24 This is a 49-year-old male patient with a known history of recurrent ventilatory dependent respiratory failure secondary to pneumonias and mucous plugging, Crohn's disease, status post colectomy and diverting ileostomy, tracheobronchomalacia, DVT, CVA/TIA, right below the knee amputation, history of cardiac arrest in 2021. He was recently treated for Pseudomonas aeruginosa and corynebacterium stratum noted on bronchoscopy wash from 07/04/2024. He was on and off the ventilator throughout his stay wean admission on 06/19/2024 to discharge on 07/16/2024 to [facility]. Discharge planning had worked hard on finding a bed for him. All of his hospital stay information was reviewed with their liaison who accepted the patient. He has used up all his long-term acute care days. [facility] received the patient on 07/16/2024 and only kept him maybe a few hours and sent him back here to the emergency room stating they are unable to take care of him. We saw the patient on consultation on 07/17/2024, and considering the patient was doing fairly well, we recommended that the patient could be discharged home. However patient came back yesterday with recurrent episodes of shortness of breath, possibly related to worsening tracheal secretions and possibly sometimes mucous plugging. We saw the patient again today, he seems to be very comfortable, not in any distress, on trach collar, and his chest x-ray showed mostly minimal atelectasis no clear-cut evidence of pneumonia. Patient had a relatively normal CBC with WBC count of 8.9 hemoglobin 12.6 electrolytes are normal renal profile is normal, we believe the patient was mostly readmitted only because of placement issues. The patient is seen today July 20, 2024 in follow-up in the intensive care unit. Transferred here from 3 . after a rapid response team was called on him for worsening shortness of breath and hypotension. He was placed back on mechanical ventilator. Current settings assist-control mode at a rate of 20, tidal volume 500, FiO2 60% and a PEEP of 5. Blood gases unable to be obtained per respiratory therapy. White count 10.5. Hemoglobin 11.4. Platelets 185. Sodium 136. Potassium 5.0. Bicarb 27. BUN 38. Creatinine 0.57. Glucose 116. Procalcitonin 1.05. Urinalysis with large leukocyte Estrace, high WBCs, high RBCs. Culture pending. Current temperature 101.1. Chest x-ray reveals left basilar linear atelectasis with some similar right basilar airspace opacities. Left IJ approach dual-lumen PICC line in place. Tracheostomy cannula in stable position. He remains on DuoNeb inhalations. Receiving TPN currently at 30 mL/h with a goal of 95 mL/h. Lipids every 72 hours. He remains on therapeutic Lovenox at 90 mg SQ every 12 hours. Continued on vancomycin and Avycaz. The patient is seen today July 21, 2024 in follow-up in the intensive care unit. He is currently awake and alert. Not requiring any sedation. He remains on the mechanical ventilator currently on assist-control mode with a tidal volume of 500, FiO2 30% and a PEEP of 5. He remains on antibiotics in the form of vancomycin and Avycaz. Receiving normal saline at 75 mL/h. Electrolytes are being replaced. He is on TPN at 95 mL/h. Lipids every 72 hours. Urine culture revealed no growth. Sputum culture pending. White count 8.6. Hemoglobin 8.6. Platelets 139. Sodium 140. Potassium 2.5. Bicarb 23. BUN 25. Creatinine 0.35. AST 21. ALT 29. He remains on therapeutic Lovenox. He is currently afebrile. Hemodynamically stable. The patient is seen today July 22, 2024 in follow-up in the intensive care unit. He is currently at and alert in no acute distress. He has been trialed on trach collar only lasted approximately 30 minutes yesterday. He has been on trach collar 40% FiO2 today. He asked to go back on the vent stating he cannot breathe. When on the vent he is on assist-control mode at a rate of 20, tidal volume 500, FiO2 30% and a PEEP of 5. He has normal saline at 75 mL/h. TPN at 95 mL/h. Receiving lipids every 72 hours. Sputum culture is positive for Pseudomonas aeruginosa. Blood culture pending. Urine culture revealed no growth. Chest x-ray continues to show similar bibasilar airspace opacities most likely atelectasis versus infiltrate. White count 4.7. Hemoglobin 8.7. Platele ts 144. Sodium 143. Potassium 3.8. Bicarb 23. BUN 20. Creatinine 0.40. Glucose 110. Sharlene on vancomycin and Avycaz. Continued on DuoNeb inhalations. Lovenox for anticoagulation. Receiving Ativan 1 mg IV every 6 hours as needed for anxiety. The patient is seen today July 23, 2024 in follow-up in the intensive care unit. He is currently on the mechanical ventilator in assist-control mode 20, tidal volume 500, FiO2 30% and a PEEP of 5. Off sedation currently. Awake and alert in no acute distress. He is being nourished with TPN at 95 mL/h. Lipids every 72 hours. He has normal saline at 75 mL/h. He is continued on DuoNeb inhalations. Therapeutic Lovenox. He remains on vancomycin and Avycaz. Chest x-ray continues to show low lung volumes with tracheostomy cannula in stable po sition. Urine culture was positive for Pseudomonas aeruginosa. Urine culture revealed no growth. Blood culture revealed no growth. Hemoglobin 8.1. Platelets 156. Sodium 137. Potassium 3.8. Bicarb 23. BUN 17. Creatinine 0.34. Glucose 112. Arterial blood gases on 100% FiO2 revealed a PO2 of 80, PCO2 76 and a pH of 7.14. The patient is seen today July 24, 2024 in follow-up in the intensive care unit. He is currently awake and alert in no acute distress. He is still on the mechanical ventilator and assist-control mode at a rate of 20, tidal volume 500, FiO2 30% and a PEEP of 5. Morning blood gases revealed a PaO2 of 128, PCO2 of 37 and a pH of 7.43. He is being nourished with TPN at 70 mL/h. Lipids every 72 hours. Normal saline at 75 mL/h. He has been changed to Zerbaxa antibiotics per ID service. Sputum culture is positive for Pseudomonas aeruginosa. Quite resistant. Blood culture revealed no growth. Urine culture revealed no growth. White count 4.1. Hemoglobin 8.3. Platelets 173. Sodium 136. Potassium 3.9. Bicarb 23. BUN 16. Creatinine 0.34. Glucose 105. He remains on DuoNeb inhalations. Therapeutic Lovenox. Ativan for anxiety. Scopolamine patch in place. Midline has been placed for IV access. Chest x-ray shows left perihilar opacities. Objective - Vital Signs Vital signs: Vital Signs Temp 98.1 F 07/24/24 08:00 Pulse 70 07/24/24 09:00 Resp 22 07/24/24 09:00 BP 115/75 07/24/24 07:00 Pulse Ox 96 07/24/24 09:00 FiO2 25 07/24/24 09:01 Intake & Output 07/23/24 07/24/24 07/24/24 18:59 06:59 18:59 Intake Total 2230 1695 390 Output Total 2984 1500 400 Balance -754 195 -10 Weight 96.5 kg 96.6 kg Intake: IV 1880 925 250 Ceftolozane/Tazobactam 3 200 gm In Sodium Chloride 0.9 % 100 ml @ 100 mls/hr IV Q8HR ANNIE Rx#:[id number] Magnesium Sulfate-D5w Pmx 100 1 gm In Dextrose/Water 1 100ml.bag @ 100 mls/hr IVPB Q1H ANNIE Rx#: [id number] Mvi, Adult No.4 with Vit 610 K 10 ml Trace (Conc-1Ml/ Dose) 1 ml Sodium Chloride 4Meq/ml Vial 64 meq Potassium Chloride 10 meq Calcium Gluconate 1 gm Magnesium Sulfate gm 1 gm Sodium Phosphate 21 mmol In Amino Acids 5 %/ Dextrose 20 % 1,000 ml @ 95 mls/hr IV .BY DURATION [facility] Rx#:[id number] Potassium Chloride 10 meq 100 100 In Water For Injection 1 100ml.bag @ 100 mls/hr IVPB Q1H ANNIE Rx#: [id number] Sodium Chloride 0.9% 500 970 825 150 ml 500 ml @ 75 mls/hr IV .Q6H40M ANNIE Rx#:[id number] TPN/PPN 350 770 140 Mvi, Adult No.4 with Vit 350 770 140 K 10 ml Trace (Conc-1Ml/ Dose) 1 ml Sodium Chloride 4Meq/ml Vial 50 meq Potassium Chloride 10 meq Calcium Gluconate 1 gm Magnesium Sulfate gm 1 gm Sodium Phosphate 21 mmol Potassium Acetate 24 meq In Amino Acids 5 %/ Dextrose 20 % 1,000 ml @ 70 mls/hr IV .BY DURATION [facility] Rx#:[id number] Output: Urine 1734 1500 400 Stool 1250 Other: Voiding Method Indwelling Catheter Indwelling Catheter Indwelling Catheter ABP, PAP, CO, CI - Last Documented Arterial Blood Pressure 140/63 - Exam GENERAL EXAM: Awake, alert, pleasant 49-year-old male, on the mechanical ventilator, in no apparent distress. HEAD: Normocephalic. EYES: Normal reaction of pupils, equal size. NOSE: Clear with pink turbinates. THROAT: Tracheostomy tube secured in place. No erythema or exudates. NECK: No masses, no JVD. CHEST: No chest wall deformity. LUNGS: Equal air entry with coarse rhonchi bilaterally. CVS: S1 and S2 normal with no audible murmur, regular rhythm. ABDOMEN: Enterocutaneous fistula over the abdominal wall. No hepatosplenomegaly, normal bowel sounds. SPINE: No scoliosis or deformity SKIN: No rashes CENTRAL NERVOUS SYSTEM: No focal deficits, tone is normal in all 4 extremities. EXTREMITIES: Extensive muscle atrophy. Contractures. There is no peripheral edema. No clubbing, no cyanosis. Peripheral pulses are intact. - Labs CBC & Chem 7: 07/24/24 04:18 07/24/24 04:18 Labs: Abnormal Lab Results - Last 24 Hours (Table) 07/23/24 07/23/24 07/24/24 Range/Units 10:16 11:43 00:41 WBC (4.50-10.00) 10*3/uL RBC (4.40-5.60) 10*6/uL Hgb (13.0-17.0) g/dL Hct (39.6-50.0) % MCH (27.0-32.0) pg MCHC (32.0-37.0) g/dL ABG pH 7.14 L* (7.35-7.45) ABG pCO2 76 H* (35-45) mmHg ABG pO2 80 L (83-108) mmHg ABG HCO3 26 H (21-25) mmol/L ABG Total CO2 28 H (19-24) mmol/L ABG O2 Saturation 91.8 L (94-97) % Hemoglobin 10.1 L (13.0-17.5) gm/dL Sodium (137-145) mmol/L Chloride (98-107) mmol/L Creatinine (0.66-1.25) mg/dL Glucose (74-99) mg/dL POC Glucose (mg/dL) 152 H 112 H (70-110) mg/dL 07/24/24 07/24/24 07/24/24 Range/Units 04:18 04:18 05:06 WBC 4.15 L (4.50-10.00) 10*3/uL RBC 3.31 L (4.40-5.60) 10*6/uL Hgb 8.3 L (13.0-17.0) g/dL Hct 27.9 L (39.6-50.0) % MCH 25.1 L (27.0-32.0) pg MCHC 29.7 L (32.0-37.0) g/dL ABG pH (7.35-7.45) ABG pCO2 (35-45) mmHg ABG pO2 128 H (83-108) mmHg ABG HCO3 (21-25) mmol/L ABG Total CO2 26 H (19-24) mmol/L ABG O2 Saturation 99.8 H (94-97) % Hemoglobin 8.7 L (13.0-17.5) gm/dL Sodium 136 L (137-145) mmol/L Chloride 108 H (98-107) mmol/L Creatinine 0.34 L (0.66-1.25) mg/dL Glucose 105 H (74-99) mg/dL POC Glucose (mg/dL) (70-110) mg/dL Microbiology - Last 24 Hours (Table) 07/20/24 15:20 Blood Culture - Preliminary Blood Assessment and Plan Assessment: Acute on chronic hypoxemic and hypercapnic respiratory failure, mainly secondary to recurrent mucous plugging. Rapid response team was called on 07/19/2024 due to hypoxemia and hypotension. He was transferred to the ICU and placed back on the mechanical ventilator. The patient has had multiple bronchoscopies with BAL with the most recent July 07, 2024 Hypotension requiring fluid resuscitation Another extended stay within the hospital from June 19, 2024 to July 16, 2024 for multiple medical issues including a left lower lobe pneumonia. Bronchoscopy 06/22/2024 with cultures positive for Pseudomonas aeruginosa and corynebacterium striatum. Repeat bronchoscopy with BAL 07/04/2024 again with Pseudomonas aeruginosa. Most likely a colonizer. Sputum culture still positive for Pseudo monas on 07/20/2024. Quite resistant. Now on Zerbaxa History of recurrent ventilator dependent respiratory failure, secondary to pneumonia and mucous plugging Anxiety Tracheal stenosis History of sepsis, secondary to pneumonia Crohn's disease, with previous bowel perforation, status post colectomy and diverting ileostomy Tracheobronchomalacia History of DVT History of CVA/TIA Right below the knee amputation History of asystole/cardiac arrest, 2021 Plan: The patient was seen and evaluated Chest x-ray, ABGs, labs and medications reviewed Decrease FiO2 to 25% Remains on TPN and lipids for nutritional support Remains on therapeutic Lovenox Continue bronchodilators Now on Zerbaxa per ID service Continue frequent suctioning as necessary Remains on scopolamine patch We will continue to follow I have personally seen and examined the patient, performed the documentation and the assessment and plan as written. Number of minutes spent on the visit: 15 Dictation was produced using [employer] dictation software. Please excuse any grammatical, word or spelling errors.
[2024-07-24 12:30] LABS: Glucose,Whole Blood 108 mg/dL (70-110)
[2024-07-24 18:21] LABS: Glucose,Whole Blood 108 mg/dL (70-110)
--- NOTE | 2024-07-24 21:35 | P.PN ---
Subjective Progress Note Date: 07/24/24 Principal diagnosis: Reason for follow-up is sepsis and pneumonia Patient is a 49-year-old male with multiple comorbidities including Crohn's disease status post colectomy diverting ileostomy tracheobronchomalacia CVA TIA cardiac arrest and history of recurrent pneumonias secondary to mucous plugging patient was recently discharged from this facility has been brought back to the hospital concerning for increasing shortness of breath and hypoxemia, patient did have worsening respiratory status requiring intubation and admission to the ICU. On today's evaluation that is 07/24/2024, patient has been afebrile, patient is breathing comfortably and is currently on vent FiO2 is down to 25% no significant purulent secretion through the ED with mental changes reported. Patient white count is 4.15 creatinine 0.34 blood culture has been negative Objective - Vital Signs Vital signs: Vital Signs Temp 98.1 F 07/24/24 12:00 Pulse 77 07/24/24 12:30 Resp 20 07/24/24 12:30 BP 115/75 07/24/24 07:00 Pulse Ox 97 07/24/24 12:00 FiO2 25 07/24/24 12:18 Intake & Output 07/23/24 07/24/24 07/24/24 18:59 06:59 18:59 Intake Total 2230 1695 1070 Output Total 2984 1500 1000 Balance -754 195 70 Weight 96.5 kg 96.6 kg Intake: IV 1880 925 550 Ceftolozane/Tazobactam 3 200 gm In Sodium Chloride 0.9 % 100 ml @ 100 mls/hr IV Q8HR ANNIE Rx#:[id number] Magnesium Sulfate-D5w Pmx 100 1 gm In Dextrose/Water 1 100ml.bag @ 100 mls/hr IVPB Q1H ANNIE Rx#: [id number] Mvi, Adult No.4 with Vit 610 K 10 ml Trace (Conc-1Ml/ Dose) 1 ml Sodium Chloride 4Meq/ml Vial 64 meq Potassium Chloride 10 meq Calcium Gluconate 1 gm Magnesium Sulfate gm 1 gm Sodium Phosphate 21 mmol In Amino Acids 5 %/ Dextrose 20 % 1,000 ml @ 95 mls/hr IV .BY DURATION ANNIE Rx#:[id number] Potassium Chloride 10 meq 100 100 In Water For Injection 1 100ml.bag @ 100 mls/hr IVPB Q1H ANNIE Rx#: [id number] Sodium Chloride 0.9% 1, 300 000 ml @ 75 mls/hr IV . [id number] ANNIE Rx#:[id number] Sodium Chloride 0.9% 500 970 825 150 ml 500 ml @ 75 mls/hr IV .Q6H40M ANNIE Rx#:[id number] TPN/PPN 350 770 520 Ceftolozane/Tazobactam 3 100 gm In Sodium Chloride 0.9 % 100 ml @ 100 mls/hr IV Q8HR ANNIE Rx#:[id number] Mvi, Adult No.4 with Vit 350 770 420 K 10 ml Trace (Conc-1Ml/ Dose) 1 ml Sodium Chloride 4Meq/ml Vial 50 meq Potassium Chloride 10 meq Calcium Gluconate 1 gm Magnesium Sulfate gm 1 gm Sodium Phosphate 21 mmol Potassium Acetate 24 meq In Amino Acids 5 %/ Dextrose 20 % 1,000 ml @ 70 mls/hr IV .BY DURATION ANNIE Rx#:[id number] Output: Urine 1734 1500 1000 Stool 1250 Other: Voiding Method Indwelling Catheter Indwelling Catheter Indwelling Catheter ABP, PAP, CO, CI - Last Documented Arterial Blood Pressure 150/68 - Exam GENERAL DESCRIPTION: Middle-age male lying in bed in no distress RESPIRATORY SYSTEM: Unlabored breathing , decreased breath sounds at bases HEART: S1 S2 regular rate and rhythm , ABDOMEN: Soft , no tenderness EXTREMITIES: Some swelling to the leg but no redness - Labs CBC & Chem 7: 07/24/24 04:18 07/24/24 04:18 Labs: Abnormal Lab Results - Last 24 Hours (Table) 07/24/24 07/24/24 07/24/24 Range/Units 00:41 04:18 04:18 WBC 4.15 L (4.50-10.00) 10*3/uL RBC 3.31 L (4.40-5.60) 10*6/uL Hgb 8.3 L (13.0-17.0) g/dL Hct 27.9 L (39.6-50.0) % MCH 25.1 L (27.0-32.0) pg MCHC 29.7 L (32.0-37.0) g/dL ABG pO2 (83-108) mmHg ABG Total CO2 (19-24) mmol/L ABG O2 Saturation (94-97) % Hemoglobin (13.0-17.5) gm/dL Sodium 136 L (137-145) mmol/L Chloride 108 H (98-107) mmol/L Creatinine 0.34 L (0.66-1.25) mg/dL Glucose 105 H (74-99) mg/dL POC Glucose (mg/dL) 112 H (70-110) mg/dL 07/24/24 Range/Units 05:06 WBC (4.50-10.00) 10*3/uL RBC (4.40-5.60) 10*6/uL Hgb (13.0-17.0) g/dL Hct (39.6-50.0) % MCH (27.0-32.0) pg MCHC (32.0-37.0) g/dL ABG pO2 128 H (83-108) mmHg ABG Total CO2 26 H (19-24) mmol/L ABG O2 Saturation 99.8 H (94-97) % Hemoglobin 8.7 L (13.0-17.5) gm/dL Sodium (137-145) mmol/L Chloride (98-107) mmol/L Creatinine (0.66-1.25) mg/dL Glucose (74-99) mg/dL POC Glucose (mg/dL) (70-110) mg/dL Microbiology - Last 24 Hours (Table) 07/20/24 15:20 Blood Culture - Preliminary Blood Assessment and Plan (1) Pneumonia Current Visit: No Status: Acute Code(s): J18.9 - PNEUMONIA, UNSPECIFIED ORGANISM SNOMED Code(s): 831065121 (2) Sepsis Current Visit: No Status: Acute Code(s): A41.9 - SEPSIS, UNSPECIFIED ORGANISM SNOMED Code(s): 58446738 Plan: 1patient with sepsis in this patient who did have fever tachycardia elevated white count meeting currently for SIRS source is likely pneumonia etiology could be mucous plugging and inadequate suction in the outpatient setting plus minus a catheter associated as a patient also significantly positive UA. 2sputum culture has been requested which are currently growing Pseudomonas sensitivities pending urine culture have been negative blood culture so far negative 3patient sputum positive for Pseudomonas now resistant to Avycaz which has discontinued patient is currently on Zerbaxa would consider short 7 to 10-day course of antibiotics and may benefit from a change of his trach this was discussed with nursing staff Dictation was produced using [employer] software. please excuse any grammatical, word or spelling errors. Time with Patient: Less than 30
--- NOTE | 2024-07-24 22:12 | P.PN ---
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 Patient also with history of stroke, DVT and chronic medical debility with contractures of his hands bilaterally, and right arm weakness. Patient has had prolonged hospital stay secondary to a Pseudomonas pneumonia and difficulty weaning off the ventilator. He was tolerating trach collar secretions had been improved and he completed a course of IV antibiotics and was discharged to [facility] for rehabilitation. He was brought back in from the [facility] with reports that he was too much care for t he senior care staff. He is not a candidate for LTAC as he has been stable on the trach collar and he has no more [facility] specialty days left this calendar year. Discussed with [employer] and they will provide the TPN and patient to be set up with visiting physicians. He was home again for 24 hours and came back to the hospital with complaints of difficulty breathing and sates the suctioning and trach care performed by his mother and son is not going well. He states he had increased secretions. He is not having any chest pains. He is awake and alert, oriented. He has a flat affect. He is unsure what to do and where to discharge to. Social work will be back on Saturday for follow up and assistance with DC planning. White blood cell count 8.96, hgb 12.6, sodium 139, potassium 4.8, BUN 28, creatinine 0.38. Glucose 124. He will be resumed on TPN through the PEG tube. 07/20/2024 Patient is evaluated today in follow up in the ICU. He had developed a suspected mucous plugging of the trach yesterday with respiratory distress and moved to the ICU. He is now on the ventilator with FiO2 of 60%. Chest xray this morning reveals left basilar linear atelectasis with similar right basilar airspace opa cities which may represent atelectasis versus infiltrates. Patient has been started on IV ceftazidime/avibactam with infectious disease and pulmonology following closely. Patient has been resumed on home TPN/Lipids. His ostomy is functioning and draining well. Patient and his mother are upset at the options available, he is unable to go to LTAC due to insurance issues. He was only at the [facility] for 24 hours due to staffing issues and his high level of care. He was home for 24 hours and came back with increased secretions and mucous plugging. The patients mother when asked states she does not know what to do. He will be in the ICU at this time on IV antibiotics and will follow up tomorrow with social work and patient to discuss options and discharge planning needs. He was febrile overnight with T-max 100.3. Sputum culture was collected. White blood cell 10.56, hgb 11.4, BUN 136, potassium 5.0, BUN 38, creatinine 0.57, phos 1.3. Urine is significantly abnormal. Procalcitonin elevated at 1.05. 07/21/2024 Patient evaluated today in follow up in the ICU. Remains on the mechanical ve ntilator with FiO2 40% and PEEP of 5. He is awake alert and oriented. Yesterday discussion was had and family and patient have requested transfer to tertiary care. Discussed the case with [facility] and the decision went to their medical review board. They have declined this patient. Sputum colture growing pseudomonas auerginosa. He remains on the IV ceftazidime/avibactam. Chest xray reveals similar bibasilar airspace opacities which may represent atelectasis vs. infiltrates. Stable support lines and tubes. Labs reveal white blood cell count 8.63, sodium 140, potassium 2.5, BUN 25, creatinine 0.35, nikkie 1.6. Fever has improved. 07/22/2024 Patient is evaluated today in follow up in the intensive care unit. He remains on the mechanical ventilator through the tracheostomy. FiO2 of 30%. He is in a better mood today. Chest xray reveals similar bibasilar airspace opacities which may represent atelectasis vs. infiltrates. Stable support lines and tubes. Sputum culture reveals pseudomonas aeurginosa. He continues on the IV avycaz. 07/23/2024 Patient is evaluated today in follow up remains in the ICU. Patient had respiratory distress today requiring bagging with concern for mucous plugging. Chest xray reviewed with findings of low lung volumes with stable support lines and tubes. No significant change from prior. Patient has been transitioned to IV zerbaxa as the pseudomonas culture now shows resistance to the avycaz. WBC 4.52, hgb 8.1, sodium 137, potassium 3.8, BUN 17, creatinine 0.34. Magnesium 1.9. 07/24/2024 Patient is evaluated today in the ICU. He is currently on CPAP. He is awake alert oriented. Still with some scattered wheezing however lung sounds improved from yesterday. Chest xray reveals development of left perihilar opacities concerning for pneumonia. Stable support lines and tubes. White blood cell count 4.15, hgb 8.3, BUN 16, creatinine 0.34. Magnesium 1.8. REVIEW OF SYSTEMS: CONSTITUTIONAL: No fever, no malaise, no fatigue. HEENT: No recent visual problems or hearing problems. Denied any sore throat. CARDIOVASCULAR: No chest pain, orthopnea, PND, no palpitations, no syncope. PULMONARY: Reports shortness of breath and increased secretions GASTROINTESTINAL: No diarrhea, no nausea, no vomiting, no abdominal pain. NEUROLOGICAL: No headaches, no weakness, no numbness. PHYSICAL EXAMINATION: GENERAL: The patient is alert and oriented x3, not in any acute distress. Well developed, well nourished. HEENT: Pupils are round and equally reacting to light. EOMI. No scleral icterus. No conjunctival pallor. Normocephalic, atraumatic. No pharyngeal erythema. No thyromegaly. Trach in place. On the ventilator. CARDIOVASCULAR: S1 and S2 present. No murmurs, rubs, or gallops. PULMONARY: Chest is clear to auscultation, no wheezing or crackles. ABDOMEN: Soft, nontender, nondistended, normoactive bowel sounds. No palpable organomegaly. Ileostomy in place and functioning with liquid stools. MUSCULOSKELETAL: No joint swelling or deformity. EXTREMITIES: No cyanosis, clubbing, or pedal edema. Right BKA. NEUROLOGICAL: Gross neurological examination did not reveal any focal deficits. Contractures of hands bilaterally. SKIN: No rashes. Assessment and Plan - Acute on chronic hypoxemic and hypercapnic respiratory failure, mainly secondary to mucous plugging. S/P ateam and now requiring mechanical ventilator. - Prolonged hospital stay and vent dependency - Hypotension with concern for sepsis - Urinary tract infection, POA. Negative urine culture. - Pseudomonas pneumonia history likely a colonizer; repeat sputum pending - Crohn's disease with ileostomy in the past patient is presently on TPN - Right sided otitis media resolved - Tracheobronchomalacia - CVA TIA - History of DVT - Chronic medical debility with contractures of hands bilaterally - Hx of right BKA GI prophylaxis DVT prophylaxis Plan Resume home medications Continue routine trach care with suctioning PRN Continue TPN Ileostomy functioning Patient has been placed back on the mechanical ventilator due to mucous plugging and respiratory distress Patient had evidence of mucous plugging again today. All medications changed to IV route if possible. Continue bronchodilators ID on consultation and patient has now been transitioned to IV zerbaxa. Urine culture negative and blood culture negative so far Patient is status post 3L of normal saline and will continue at normal saline 75 mls/hr Pulmonary critical care recommended tertiary care center and [facility] denied the transfer request. Social work on for discharge planning. Monitor electrolyes and renal function The impression and plan of care has been dictated by Coral Medina, Nurse Practitioner as directed. Dr. Mo MD I have performed a history and physical examination and medical decision making of this patient, discussed the same with the dictator, and agree with the dictators assessment and plan as written, documented as a scribe. Based on total visit time, I have performed more than 50% of this visit. Objective - Vital Signs Vital signs: Vital Signs Temp 98.1 F 07/24/24 08:00 Pulse 70 07/24/24 09:00 Resp 22 07/24/24 09:00 BP 115/75 07/24/24 07:00 Pulse Ox 96 07/24/24 09:00 FiO2 25 07/24/24 09:01 Intake & Output 07/23/24 07/24/24 07/24/24 18:59 06:59 18:59 Intake Total 2230 1695 390 Output Total 2984 1500 400 Balance -754 195 -10 Weight 96.5 kg 96.6 kg Intake: IV 1880 925 250 Ceftolozane/Tazobactam 3 200 gm In Sodium Chloride 0.9 % 100 ml @ 100 mls/hr IV Q8HR ANNIE Rx#:[id number] Magnesium Sulfate-D5w Pmx 100 1 gm In Dextrose/Water 1 100ml.bag @ 100 mls/hr IVPB Q1H ANNIE Rx#: [id number] Mvi, Adult No.4 with Vit 610 K 10 ml Trace (Conc-1Ml/ Dose) 1 ml Sodium Chloride 4Meq/ml Vial 64 meq Potassium Chloride 10 meq Calcium Gluconate 1 gm Magnesium Sulfate gm 1 gm Sodium Phosphate 21 mmol In Amino Acids 5 %/ Dextrose 20 % 1,000 ml @ 95 mls/hr IV .BY DURATION [facility] Rx#:[id number] Potassium Chloride 10 meq 100 100 In Water For Injection 1 100ml.bag @ 100 mls/hr IVPB Q1H ANNIE Rx#: [id number] Sodium Chloride 0.9% 500 970 825 150 ml 500 ml @ 75 mls/hr IV .Q6H40M ANNIE Rx#:[id number] TPN/PPN 350 770 140 Mvi, Adult No.4 with Vit 350 770 140 K 10 ml Trace (Conc-1Ml/ Dose) 1 ml Sodium Chloride 4Meq/ml Vial 50 meq Potassium Chloride 10 meq Calcium Gluconate 1 gm Magnesium Sulfate gm 1 gm Sodium Phosphate 21 mmol Potassium Acetate 24 meq In Amino Acids 5 %/ Dextrose 20 % 1,000 ml @ 70 mls/hr IV .BY DURATION [facility] Rx#:[id number] Output: Urine 1734 1500 400 Stool 1250 Other: Voiding Method Indwelling Catheter Indwelling Catheter Indwelling Catheter ABP, PAP, CO, CI - Last Documented Arterial Blood Pressure 140/63 - Labs CBC & Chem 7: 07/24/24 04:18 07/24/24 04:18 Labs: Abnormal Lab Results - Last 24 Hours (Table) 07/23/24 07/23/24 07/24/24 Range/Units 10:16 11:43 00:41 WBC (4.50-10.00) 10*3/uL RBC (4.40-5.60) 10*6/uL Hgb (13.0-17.0) g/dL Hct (39.6-50.0) % MCH (27.0-32.0) pg MCHC (32.0-37.0) g/dL ABG pH 7.14 L* (7.35-7.45) ABG pCO2 76 H* (35-45) mmHg ABG pO2 80 L (83-108) mmHg ABG HCO3 26 H (21-25) mmol/L ABG Total CO2 28 H (19-24) mmol/L ABG O2 Saturation 91.8 L (94-97) % Hemoglobin 10.1 L (13.0-17.5) gm/dL Sodium (137-145) mmol/L Chloride (98-107) mmol/L Creatinine (0.66-1.25) mg/dL Glucose (74-99) mg/dL POC Glucose (mg/dL) 152 H 112 H (70-110) mg/dL 07/24/24 07/24/24 07/24/24 Range/Units 04:18 04:18 05:06 WBC 4.15 L (4.50-10.00) 10*3/uL RBC 3.31 L (4.40-5.60) 10*6/uL Hgb 8.3 L (13.0-17.0) g/dL Hct 27.9 L (39.6-50.0) % MCH 25.1 L (27.0-32.0) pg MCHC 29.7 L (32.0-37.0) g/dL ABG pH (7.35-7.45) ABG pCO2 (35-45) mmHg ABG pO2 128 H (83-108) mmHg ABG HCO3 (21-25) mmol/L ABG Total CO2 26 H (19-24) mmol/L ABG O2 Saturation 99.8 H (94-97) % Hemoglobin 8.7 L (13.0-17.5) gm/dL Sodium 136 L (137-145) mmol/L Chloride 108 H (98-107) mmol/L Creatinine 0.34 L (0.66-1.25) mg/dL Glucose 105 H (74-99) mg/dL POC Glucose (mg/dL) (70-110) mg/dL Microbiology - Last 24 Hours (Table) 07/20/24 15:20 Blood Culture - Preliminary Blood Assessment and Plan Time with Patient: Less than 30
[2024-07-25 00:15] LABS: Glucose,Whole Blood 114 mg/dL (70-110)
[2024-07-25 05:35] LABS: Glucose,Whole Blood 100 mg/dL (70-110)
[2024-07-25 05:41] LABS: Basophils # (A) 0.02 10*3/uL (0.00-0.10); Basophils % (A) 0.5 %; Eosinophils # (A) 0.28 10*3/uL (0.04-0.35); Eosinophils % (A) 6.3 %; HCT 29.5 % (39.6-50.0); HGB 8.8 g/dL (13.0-17.0); Lymphocytes # (A) 1.46 10*3/uL (0.90-5.00); MCH 24.9 pg (27.0-32.0); MCHC 29.8 g/dL (32.0-37.0); MCV 83.6 fL (80.0-97.0); Mean Platelet Volume 11.7 fL (9.5-12.2); Monocytes # (A) 0.34 10*3/uL (0.20-1.00); Monocytes % (A) 7.7 %; Neutrophils # (A) 2.31 10*3/uL (1.80-7.70); Platelet Count 180 10*3/uL (140-440); RBC 3.53 10*6/uL (4.40-5.60); WBC 4.43 10*3/uL (4.50-10.00)
[2024-07-25 05:51] LABS: ABG Base Excess 1.6 mmol/L; ABG HCO3 26 mmol/L (21-25); ABG Oxygen Saturation 96.8 % (94-97); ABG PCO2 36 mmHg (35-45); ABG PH 7.45 (7.35-7.45); ABG PO2 77 mmHg (83-108); ABG TCO2 27 mmol/L (19-24); Allen Test Performed? Yes
[2024-07-25 06:36] LABS: African American GFR (CKD) >90 (>60 ml/min/1.73 sqM); Anion Gap 5 mmol/L; Blood Urea Nitrogen 13 mg/dL (9-20); Carbon Dioxide 26 mmol/L (22-30); Chloride 102 mmol/L (98-107); Glucose 98 mg/dL (74-99); Magnesium 1.7 mg/dL (1.6-2.3); Non-African American GFR(CKD) >90 (>60 ml/min/1.73 sqM); Phosphorus 3.3 mg/dL (2.5-4.5); Potassium 4.1 mmol/L (3.5-5.1); Sodium 133 mmol/L (137-145)
--- NOTE | 2024-07-25 06:43 | XR ---
EXAMINATION TYPE: XR chest 1V portable DATE OF EXAM: 07/25/2024 CLINICAL INDICATION: Male, 49 years old with history of mechanically ventilated, progress study. TECHNIQUE: Single AP portable semi-upright view of the chest is obtained. COMPARISON: Chest x-ray from one day earlier FINDINGS: Stable tracheostomy tube and left internal jugular central venous catheter. Persistent low lung volumes with mild to moderate central vascular congestion. Persistent retrocardia c opacity. Cardiac silhouette size is stable and within normal limits. Osseous structures are intact. Right supraclavicular surgical clips are redemonstrated. IMPRESSION: Persistent low lung volumes with central vascular congestion and left perihilar acute inf iltrate and/or atelectasis. No significant change from one day earlier. [facility], , 07/25/2024 6:41 AM
--- NOTE | 2024-07-25 09:22 | P.PN ---
Subjective Progress Note Date: 07/25/24 This is a 49-year-old male patient with a known history of recurrent ventilatory dependent respiratory failure secondary to pneumonias and mucous plugging, Crohn's disease, status post colectomy and diverting ileostomy, tracheobronchomalacia, DVT, CVA/TIA, right below the knee amputation, history of cardiac arrest in 2021. He was recently treated for Pseudomonas aeruginosa and corynebacterium stratum noted on bronchoscopy wash from 07/04/2024. He was on and off the ventilator throughout his stay wean admission on 06/19/2024 to discharge on 07[facility] to [facility]. Discharge planning had worked hard on finding a bed for him. All of his hospital stay information was reviewed with their liaison who accepted the patient. He has used up all his long-term acute care days. [facility] received the patient on 07/16/2024 and only kept him maybe a few hours and sent him back here to the emergency room stating they are unable to take care of him. We saw the patient on consultation on 07/17/2024, and considering the patient was doing fairly well, we recommended that the patient could be discharged home. However patient came back yesterday with recurrent episodes of shortness of breath, possibly related to worsening tracheal secretions and possibly sometimes mucous plugging. We saw the patient again today, he seems to be very comfortable, not in any distress, on trach collar, and his chest x-ray showed mostly minimal atelectasis no clear-cut evidence of pneumonia. Patient had a relatively normal CBC with WBC count of 8.9 hemoglobin 12.6 electrolytes are normal renal profile is normal, we believe the patient was mostly readmitted only because of placement issues. The patient is seen today July 20, 2024 in follow-up in the intensive care unit. Transferred here from 3 . after a rapid response team was called on him for worsening shortness of breath and hypotension. He was placed back on mechanical ventilator. Current settings assist-control mode at a rate of 20, tidal volume 500, FiO2 60% and a PEEP of 5. Blood gases unable to be obtained per respiratory therapy. White count 10.5. Hemoglobin 11.4. Platelets 185. Sodium 136. Potassium 5.0. Bicarb 27. BUN 38. Creatinine 0.57. Glucose 116. Procalcitonin 1.05. Urinalysis with large leukocyte Estrace, high WBCs, high RBCs. Culture pending. Current temperature 101.1. Chest x-ray reveals left basilar linear atelectasis with some similar right basilar airspace opacities. Left IJ approach dual-lumen PICC line in place. Tracheostomy cannula in stable position. He remains on DuoNeb inhalations. Receiving TPN currently at 30 mL/h with a goal of 95 mL/h. Lipids every 72 hours. He remains on therapeutic Lovenox at 90 mg SQ every 12 hours. Continued on vancomycin and Avycaz. The patient is seen today July 21, 2024 in follow-up in the intensive care unit. He is currently awake and alert. Not requiring any sedation. He remains on the mechanical ventilator currently on assist-control mode with a tidal volume of 500, FiO2 30% and a PEEP of 5. He remains on antibiotics in the form of vancomycin and Avycaz. Receiving normal saline at 75 mL/h. Electrolytes are being replaced. He is on TPN at 95 mL/h. Lipids every 72 hours. Urine culture revealed no growth. Sputum culture pending. White count 8.6. Hemoglobin 8.6. Platelets 139. Sodium 140. Potassium 2.5. Bicarb 23. BUN 25. Creatinine 0.35. AST 21. ALT 29. He remains on therapeutic Lovenox. He is currently afebrile. Hemodynamically stable. The patient is seen today July 22, 2024 in follow-up in the intensive care unit. He is currently at and alert in no acute distress. He has been trialed on trach collar only lasted approximately 30 minutes yesterday. He has been on trach collar 40% FiO2 today. He asked to go back on the vent stating he cannot breathe. When on the vent he is on assist-control mode at a rate of 20, tidal volume 500, FiO2 30% and a PEEP of 5. He has normal saline at 75 mL/h. TPN at 95 mL/h. Receiving lipids every 72 hours. Sputum culture is positive for Pseudomonas aeruginosa. Blood culture pending. Urine culture revealed no growth. Chest x-ray continues to show similar bibasilar airspace opacities most likely atelectasis versus infiltrate. White count 4.7. Hemoglobin 8.7. Platele ts 144. Sodium 143. Potassium 3.8. Bicarb 23. BUN 20. Creatinine 0.40. Glucose 110. Sharlene on vancomycin and Avycaz. Continued on DuoNeb inhalations. Lovenox for anticoagulation. Receiving Ativan 1 mg IV every 6 hours as needed for anxiety. The patient is seen today July 23, 2024 in follow-up in the intensive care unit. He is currently on the mechanical ventilator in assist-control mode 20, tidal volume 500, FiO2 30% and a PEEP of 5. Off sedation currently. Awake and alert in no acute distress. He is being nourished with TPN at 95 mL/h. Lipids every 72 hours. He has normal saline at 75 mL/h. He is continued on DuoNeb inhalations. Therapeutic Lovenox. He remains on vancomycin and Avycaz. Chest x-ray continues to show low lung volumes with tracheostomy cannula in stable po sition. Urine culture was positive for Pseudomonas aeruginosa. Urine culture revealed no growth. Blood culture revealed no growth. Hemoglobin 8.1. Platelets 156. Sodium 137. Potassium 3.8. Bicarb 23. BUN 17. Creatinine 0.34. Glucose 112. Arterial blood gases on 100% FiO2 revealed a PO2 of 80, PCO2 76 and a pH of 7.14. The patient is seen today July 24, 2024 in follow-up in the intensive care unit. He is currently awake and alert in no acute distress. He is still on the mechanical ventilator and assist-control mode at a rate of 20, tidal volume 500, FiO2 30% and a PEEP of 5. Morning blood gases revealed a PaO2 of 128, PCO2 of 37 and a pH of 7.43. He is being nourished with TPN at 70 mL/h. Lipids every 72 hours. Normal saline at 75 mL/h. He has been changed to Zerbaxa antibiotics per ID service. Sputum culture is positive for Pseudomonas aeruginosa. Quite resistant. Blood culture revealed no growth. Urine culture revealed no growth. White count 4.1. Hemoglobin 8.3. Platelets 173. Sodium 136. Potassium 3.9. Bicarb 23. BUN 16. Creatinine 0.34. Glucose 105. He remains on DuoNeb inhalations. Therapeutic Lovenox. Ativan for anxiety. Scopolamine patch in place. Midline has been placed for IV access. Chest x-ray shows left perihilar opacities. The patient is seen today July 25, 2024 in follow-up in the intensive care unit. He is awake and alert. Currently on the mechanical ventilator assist-control mode at a rate of 20, tidal volume 500, FiO2 25% and a PEEP of 5. Morning blood gases revealed a PaO2 of 77, [id number] and a pH of 7.45. Yesterday he was on pressure support and CPAP for nearly the whole day. He was rested at night back on the ventilator. He has been nursed with TPN at 70 mL/h. He is receiving antibiotics in the form of Zerbaxa. This. Lipids every [address] patch in place. Culture was positive for Pseudomonas aeruginosa. Blood cultures revealed no growth. Urine culture revealed no growth. White count 4.4. Hemoglobin 8.8. Platelets 180. Sodium 133. Potassium 4.1. Bicarb 26. BUN 13. Creatinine 0.38. Glucose 100. Objective - Vital Signs Vital signs: Vital Signs Temp 98.9 F 07/25/24 04:00 Pulse 62 07/25/24 08:11 Resp 07/25/24 07:00 BP 129/74 07/25/24 07:00 Pulse Ox 96 07/25/24 07:00 FiO2 25 07/25/24 08:08 Intake & Output 07/24/24 07/25/24 07/25/24 18:59 06:59 18:59 Intake Total 2999.5 1840 435 Output Total 2850 2625 300 Balance 149.5 -785 135 Weight 96.6 kg 95 kg Intake: IV 1000 1000 225 Ceftolozane/Tazobactam 3 100 gm In Sodium Chloride 0.9 % 100 ml @ 100 mls/hr IV Q8HR ANNIE Rx#:[id number] Potassium Chloride 10 meq 100 In Water For Injection 1 100ml.bag @ 100 mls/hr IVPB Q1H ANNIE Rx#: [id number] Sodium Chloride 0.9% 1, 750 900 225 000 ml @ 75 mls/hr IV . [id number] ANNIE Rx#:[id number] Sodium Chloride 0.9% 500 150 ml 500 ml @ 75 mls/hr IV .[id number] ANNIE Rx#:[id number] Intake, IV Titration 1059.5 Amount Mvi, Adult No.4 with Vit 1059.5 K 10 ml Trace (Conc-1Ml/ Dose) 1 ml Sodium Chloride 4Meq/ml Vial 50 meq Potassium Chloride 10 meq Calcium Gluconate 1 gm Magnesium Sulfate gm 1 gm Sodium Phosphate 21 mmol Potassium Acetate 24 meq In Amino Acids 5 %/ Dextrose 20 % 1,000 ml @ 70 mls/hr IV .BY DURATION [facility] Rx#:[id number] TPN/PPN 940 840 210 Ceftolozane/Tazobactam 3 100 gm In Sodium Chloride 0.9 % 100 ml @ 100 mls/hr IV Q8HR ANNIE Rx#:[id number] Mvi, Adult No.4 with Vit 840 840 210 K 10 ml Trace (Conc-1Ml/ Dose) 1 ml Sodium Chloride 4Meq/ml Vial 50 meq Potassium Chloride 10 meq Calcium Gluconate 1 gm Magnesium Sulfate gm 1 gm Sodium Phosphate 21 mmol Potassium Acetate 24 meq In Amino Acids 5 %/ Dextrose 20 % 1,000 ml @ 70 mls/hr IV .BY DURATION [facility] Rx#:[id number] Output: Urine 2550 2075 300 Stool 300 550 Other: Voiding Method Indwelling Catheter Indwelling Catheter Indwelling Catheter ABP, PAP, CO, CI - Last Documented Arterial Blood Pressure 112/46 - Exam GENERAL EXAM: Awake, 49-year-old male, on the mechanical ventilator, in no apparent distress. HEAD: Normocephalic. EYES: Normal reaction of pupils, equal size. NOSE: Clear with pink turbinates. THROAT: Tracheostomy tube secured in place. No erythema or exudates. NECK: No masses, no JVD. CHEST: No chest wall deformity. LUNGS: Equal air entry with few scattered rhonchi bilaterally. CVS: S1 and S2 normal with no audible murmur, regular rhythm. ABDOMEN: Enterocutaneous fistula over the abdominal wall. No hepatosplenomegaly, normal bowel sounds. SPINE: No scoliosis or deformity SKIN: No rashes CENTRAL NERVOUS SYSTEM: No focal deficits, tone is normal in all 4 extremities. EXTREMITIES: Extensive muscle atrophy. Contractures. There is no peripheral edema. No clubbing, no cyanosis. Peripheral pulses are intact. - Labs CBC & Chem 7: 07/25/24 05:35 07/25/24 05:35 Labs: Abnormal Lab Results - Last 24 Hours (Table) 07/25/24 07/25/24 07/25/24 Range/Units 00:14 05:35 05:35 WBC 4.43 L (4.50-10.00) 10*3/uL RBC 3.53 L (4.40-5.60) 10*6/uL Hgb 8.8 L (13.0-17.0) g/dL Hct 29.5 L (39.6-50.0) % MCH 24.9 L (27.0-32.0) pg MCHC 29.8 L (32.0-37.0) g/dL ABG pO2 (83-108) mmHg ABG HCO3 (21-25) mmol/L ABG Total CO2 (19-24) mmol/L Hemoglobin (13.0-17.5) gm/dL Sodium 133 L (137-145) mmol/L Creatinine 0.38 L (0.66-1.25) mg/dL POC Glucose (mg/dL) 114 H (70-110) mg/dL 07/25/24 Range/Units 05:48 WBC (4.50-10.00) 10*3/uL RBC (4.40-5.60) 10*6/uL Hgb (13.0-17.0) g/dL Hct (39.6-50.0) % MCH (27.0-32.0) pg MCHC (32.0-37.0) g/dL ABG pO2 77 L (83-108) mmHg ABG HCO3 26 H (21-25) mmol/L ABG Total CO2 27 H (19-24) mmol/L Hemoglobin 9.1 L (13.0-17.5) gm/dL Sodium (137-145) mmol/L Creatinine (0.66-1.25) mg/dL POC Glucose (mg/dL) (70-110) mg/dL Assessment and Plan Assessment: Acute on chronic hypoxemic and hypercapnic respiratory failure, mainly secondary to recurrent mucous plugging. Rapid response team was called on 07/19/2024 due to hypoxemia and hypotension. He was transferred to the ICU and placed back on the mechanical ventilator. The patient has had multiple bronchoscopies with BAL with the most recent July 07, 2024 Hypotension requiring fluid resuscitation, recovered Another extended stay within the hospital from June 19, 2024 to July 16, 2024 for multiple medical issues including a left lower lobe pneumonia. Bronchoscopy 06/22/2024 with cultures positive for Pseudomonas aeruginosa and corynebacterium striatum. Repeat bronchoscopy with BAL 07/04/2024 again with Pseudomonas aeruginosa. Most likely a colonizer. Sputum culture still positive for Pseudomonas on 07/20/2024. Quite resistant. Now on Zerbaxa History of recurrent ventilator dependent respiratory failure, secondary to pneumonia and mucous plugging Anxiety Tracheal stenosis History of sepsis, secondary to pneumonia Crohn's disease, with previous bowel perforation, status post colectomy and diverting ileostomy Tracheobronchomalacia History of DVT History of CVA/TIA Right below the knee amputation History of asystole/cardiac arrest, 2021 Plan: The patient was seen and evaluated Chest x-ray, ABGs, labs and medications reviewed Continue the current ventilator/settings Transition to pressure support and CPAP as tolerated Remains on TPN and lipids for nutritional support Remains on therapeutic Lovenox Continue bronchodilators Continue Zerbaxa Continue frequent suctioning as necessary Remains on scopolamine patch We will continue to follow I have personally seen and examined the patient, performed the documentation and the assessment and plan as written. Number of minutes spent on the visit: 15 Dictation was produced using [employer] dictation software. Please excuse any grammatical, word or spelling errors.
[2024-07-25] MEDS: MAGNESIUM SULFATE-D5W PMX 1 GM in DEXTROSE/WATER 1 100ML.BAG IVPB ONE (09:56)
[2024-07-25 11:33] LABS: Glucose,Whole Blood 131 mg/dL (70-110)
--- NOTE | 2024-07-25 14:25 | P.PN ---
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 Patient also with history of stroke, DVT and chronic medical debility with contractures of his hands bilaterally, and right arm weakness. Patient has had prolonged hospital stay secondary to a Pseudomonas pneumonia and difficulty weaning off the ventilator. He was tolerating trach collar secretions had been improved and he completed a course of IV antibiotics and was discharged to [facility] for rehabilitation. He was brought back in from the [facility] with reports that he was too much care for t he intermediate staff. He is not a candidate for LTAC as he has been stable on the trach collar and he has no more [facility] specialty days left this calendar year. Discussed with [facility] and they will provide the TPN and patient to be set up with visiting physicians. He was home again for 24 hours and came back to the hospital with complaints of difficulty breathing and sates the suctioning and trach care performed by his mother and son is not going well. He states he had increased secretions. He is not having any chest pains. He is awake and alert, oriented. He has a flat affect. He is unsure what to do and where to discharge to. Social work will be back on Saturday for follow up and assistance with DC planning. White blood cell count 8.96, hgb 12.6, sodium 139, potassium 4.8, BUN 28, creatinine 0.38. Glucose 124. He will be resumed on TPN through the PEG tube. 07/20/2024 Patient is evaluated today in follow up in the ICU. He had developed a suspected mucous plugging of the trach yesterday with respiratory distress and moved to the ICU. He is now on the ventilator with FiO2 of 60%. Chest xray this morning reveals left basilar linear atelectasis with similar right basilar airspace opa cities which may represent atelectasis versus infiltrates. Patient has been started on IV ceftazidime/avibactam with infectious disease and pulmonology following closely. Patient has been resumed on home TPN/Lipids. His ostomy is functioning and draining well. Patient and his mother are upset at the options available, he is unable to go to LTAC due to insurance issues. He was only at the [facility] for 24 hours due to staffing issues and his high level of care. He was home for 24 hours and came back with increased secretions and mucous plugging. The patients mother when asked states she does not know what to do. He will be in the ICU at this time on IV antibiotics and will follow up tomorrow with social work and patient to discuss options and discharge planning needs. He was febrile overnight with T-max 100.3. Sputum culture was collected. White blood cell 10.56, hgb 11.4, BUN 136, potassium 5.0, BUN 38, creatinine 0.57, phos 1.3. Urine is significantly abnormal. Procalcitonin elevated at 1.05. 07/21/2024 Patient evaluated today in follow up in the ICU. Remains on the mechanical ve ntilator with FiO2 40% and PEEP of 5. He is awake alert and oriented. Yesterday discussion was had and family and patient have requested transfer to tertiary care. Discussed the case with Jamarc[facility] Iniguez and the decision went to their medical review board. They have declined this patient. Sputum colture growing pseudomonas auerginosa. He remains on the IV ceftazidime/avibactam. Chest xray reveals similar bibasilar airspace opacities which may represent atelectasis vs. infiltrates. Stable support lines and tubes. Labs reveal white blood cell count 8.63, sodium 140, potassium 2.5, BUN 25, creatinine 0.35, nikkie 1.6. Fever has improved. 07/22/2024 Patient is evaluated today in follow up in the intensive care unit. He remains on the mechanical ventilator through the tracheostomy. FiO2 of 30%. He is in a better mood today. Chest xray reveals similar bibasilar airspace opacities which may represent atelectasis vs. infiltrates. Stable support lines and tubes. Sputum culture reveals pseudomonas aeurginosa. He continues on the IV avycaz. 07/23/2024 Patient is evaluated today in follow up remains in the ICU. Patient had respiratory distress today requiring bagging with concern for mucous plugging. Chest xray reviewed with findings of low lung volumes with stable support lines and tubes. No significant change from prior. Patient has been transitioned to IV zerbaxa as the pseudomonas culture now shows resistance to the avycaz. WBC 4.52, hgb 8.1, sodium 137, potassium 3.8, BUN 17, creatinine 0.34. Magnesium 1.9. 07/24/2024 Patient is evaluated today in the ICU. He is currently on CPAP. He is awake alert oriented. Still with some scattered wheezing however lung sounds improved from yesterday. Chest xray reveals development of left perihilar opacities concerning for pneumonia. Stable support lines and tubes. White blood cell count 4.15, hgb 8.3, BUN 16, creatinine 0.34. Magnesium 1.8. 07/25/2024 Patient is evaluated today in the intensive care unit. He remains on CPAP. He is awake alert oriented. He is asking for speech therapy consultation as he wants to trial eating. Unable to do so currently. Chest xray reveals persistent low lung volumes with central vascular congestion and left perihilar acute infiltrate and or atelectasis. White blood cell count 4.43, hemoglobin 8.8, sodium 133, BUN of 13 creatinine 0.38 magnesium 1.7. REVIEW OF SYSTEMS: CONSTITUTIONAL: No fever, no malaise, no fatigue. HEENT: No recent visual problems or hearing problems. Denied any sore throat. CARDIOVASCULAR: No chest pain, orthopnea, PND, no palpitations, no syncope. PULMONARY: Reports shortness of breath and increased secretions GASTROINTESTINAL: No diarrhea, no nausea, no vomiting, no abdominal pain. NEUROLOGICAL: No headaches, no weakness, no numbness. PHYSICAL EXAMINATION: GENERAL: The patient is alert and oriented x3, not in any acute distress. Well developed, well nourished. HEENT: Pupils are round and equally reacting to light. EOMI. No scleral icterus. No conjunctival pallor. Normocephalic, atraumatic. No pharyngeal erythema. No thyromegaly. Trach in place. On the ventilator. CARDIOVASCULAR: S1 and S2 present. No murmurs, rubs, or gallops. PULMONARY: Chest is clear to auscultation, no wheezing or crackles. ABDOMEN: Soft, nontender, nondistended, normoactive bowel sounds. No palpable organomegaly. Ileostomy in place and functioning with liquid stools. MUSCULOSKELETAL: No joint swelling or deformity. EXTREMITIES: No cyanosis, clubbing, or pedal edema. Right BKA. NEUROLOGICAL: Gross neurological examination did not reveal any focal deficits. Contractures of hands bilaterally. SKIN: No rashes. Assessment and Plan - Acute on chronic hypoxemic and hypercapnic respiratory failure, mainly secondary to mucous plugging. S/P ateam and now requiring mechanical ventilator. - Prolonged hospital stay and vent dependency - Hypotension with concern for sepsis - Urinary tract infection, POA. Negative urine culture. - Pseudomonas pneumonia history likely a colonizer; repeat sputum pending - Crohn's disease with ileostomy in the past patient is presently on TPN - Right sided otitis media resolved - Tracheobronchomalacia - CVA TIA - History of DVT - Chronic medical debility with contractures of hands bilaterally - Hx of right BKA GI prophylaxis DVT prophylaxis Plan Resume home medications Continue routine trach care with suctioning PRN Continue TPN Ileostomy functioning Patient has been placed back on the mechanical ventilator due to mucous plugging and respiratory distress Patient had evidence of mucous plugging again today. All medications changed to IV route if possible. Continue bronchodilators ID on consultation and patient has now been transitioned to IV zerbaxa. Urine culture negative and blood culture negative so far Patient is status post 3L of normal saline and will continue at normal saline 75 mls/hr Pulmonary critical care recommended tertiary care center and [facility] has denied the transfer request. Social work on for discharge planning. Monitor electrolyes and renal function The impression and plan of care has been dictated by Coral Medina, Nurse Practitioner as directed. Dr. Mo MD I have performed a history and physical examination and medical decision making of this patient, discussed the same with the dictator, and agree with the dictators assessment and plan as written, documented as a scribe. Based on total visit time, I have performed more than 50% of this visit. Objective - Vital Signs Vital signs: Vital Signs Temp 98.2 F 07/25/24 12:00 Pulse 78 07/25/24 12:01 Resp 20 07/25/24 12:00 BP 140/73 07/25/24 11:00 Pulse Ox 99 07/25/24 12:00 FiO2 25 07/25/24 12:00 Intake & Output 07/24/24 07/25/24 07/25/24 18:59 06:59 18:59 Intake Total 2999.5 1840 970 Output Total 2850 2625 900 Balance 149.5 -785 70 Weight 96.6 kg 95 kg Intake: IV 1000 1000 550 Ceftolozane/Tazobactam 3 100 gm In Sodium Chloride 0.9 % 100 ml @ 100 mls/hr IV Q8HR [facility] Rx#:[id number] Magnesium Sulfate-D5w Pmx 100 1 gm In Dextrose/Water 1 100ml.bag @ 100 mls/hr IVPB ONCE ONE Rx#: [id number] Potassium Chloride 10 meq 100 In Water For Injection 1 100ml.bag @ 100 mls/hr IVPB Q1H [facility] Rx#: [id number] Sodium Chloride 0.9% 1, 750 900 450 000 ml @ 75 mls/hr IV . [id number] [facility] Rx#:[id number] Sodium Chloride 0.9% 500 150 ml 500 ml @ 75 mls/hr IV .[id number] [facility] Rx#:[id number] Intake, IV Titration 1059.5 Amount Mvi, Adult No.4 with Vit 1059.5 K 10 ml Trace (Conc-1Ml/ Dose) 1 ml Sodium Chloride 4Meq/ml Vial 50 meq Potassium Chloride 10 meq Calcium Gluconate 1 gm Magnesium Sulfate gm 1 gm Sodium Phosphate 21 mmol Potassium Acetate 24 meq In Amino Acids 5 %/ Dextrose 20 % 1,000 ml @ 70 mls/hr IV .BY DURATION [facility] Rx#:[id number] TPN/PPN 940 840 420 Ceftolozane/Tazobactam 3 100 gm In Sodium Chloride 0.9 % 100 ml @ 100 mls/hr IV Q8HR [facility] Rx#:[id number] Mvi, Adult No.4 with Vit 840 840 420 K 10 ml Trace (Conc-1Ml/ Dose) 1 ml Sodium Chloride 4Meq/ml Vial 50 meq Potassium Chloride 10 meq Calcium Gluconate 1 gm Magnesium Sulfate gm 1 gm Sodium Phosphate 21 mmol Potassium Acetate 24 meq In Amino Acids 5 %/ Dextrose 20 % 1,000 ml @ 70 mls/hr IV .BY DURATION [facility] Rx#:[id number] Output: Urine 2550 2075 900 Stool 300 550 Other: Voiding Method Indwelling Catheter Indwelling Catheter Indwelling Catheter ABP, PAP, CO, CI - Last Documented Arterial Blood Pressure 142/60 - Labs CBC & Chem 7: 07/25/24 05:35 07/25/24 05:35 Labs: Abnormal Lab Results - Last 24 Hours (Table) 07/25/24 07/25/24 07/25/24 Range/Units 00:14 05:35 05:35 WBC 4.43 L (4.50-10.00) 10*3/uL RBC 3.53 L (4.40-5.60) 10*6/uL Hgb 8.8 L (13.0-17.0) g/dL Hct 29.5 L (39.6-50.0) % MCH 24.9 L (27.0-32.0) pg MCHC 29.8 L (32.0-37.0) g/dL ABG pO2 (83-108) mmHg ABG HCO3 (21-25) mmol/L ABG Total CO2 (19-24) mmol/L Hemoglobin (13.0-17.5) gm/dL Sodium 133 L (137-145) mmol/L Creatinine 0.38 L (0.66-1.25) mg/dL POC Glucose (mg/dL) 114 H (70-110) mg/dL 07/25/24 07/25/24 Range/Units 05:48 11:31 WBC (4.50-10.00) 10*3/uL RBC (4.40-5.60) 10*6/uL Hgb (13.0-17.0) g/dL Hct (39.6-50.0) % MCH (27.0-32.0) pg MCHC (32.0-37.0) g/dL ABG pO2 77 L (83-108) mmHg ABG HCO3 26 H (21-25) mmol/L ABG Total CO2 27 H (19-24) mmol/L Hemoglobin 9.1 L (13.0-17.5) gm/dL Sodium (137-145) mmol/L Creatinine (0.66-1.25) mg/dL POC Glucose (mg/dL) 131 H (70-110) mg/dL Assessment and Plan Time with Patient: Less than 30
[2024-07-25 17:51] LABS: Glucose,Whole Blood 105 mg/dL (70-110)
[2024-07-25] MEDS: 1: MVI, ADULT NO.4 WITH VIT K 10 ML, TRACE (CONC-1ML/DOSE) 1 ML, SODIUM CHLORIDE 4MEQ/ML IV SCH (19:44)
[2024-07-26 00:41] LABS: Glucose,Whole Blood 110 mg/dL (70-110)
[2024-07-26 05:04] LABS: African American GFR (CKD) >90 (>60 ml/min/1.73 sqM); Anion Gap 5 mmol/L; Blood Urea Nitrogen 14 mg/dL (9-20); Calcium 8.8 mg/dL (8.4-10.2); Carbon Dioxide 25 mmol/L (22-30); Chloride 106 mmol/L (98-107); Glucose 122 mg/dL (74-99); Magnesium 1.8 mg/dL (1.6-2.3); Non-African American GFR(CKD) >90 (>60 ml/min/1.73 sqM); Phosphorus 3.7 mg/dL (2.5-4.5); Potassium 3.7 mmol/L (3.5-5.1); Sodium 136 mmol/L (137-145)
[2024-07-26 05:16] LABS: ABG Base Excess 0.8 mmol/L; ABG HCO3 26 mmol/L (21-25); ABG Oxygen Saturation 97.5 % (94-97); ABG PCO2 43 mmHg (35-45); ABG PH 7.39 (7.35-7.45); ABG PO2 86 mmHg (83-108); ABG TCO2 27 mmol/L (19-24); Allen Test Performed? Yes
[2024-07-26] MEDS ORDERED: Magnesium Replacement Protocol 1 EACH MISC MISCELLANE PRN (05:40)
--- NOTE | 2024-07-26 06:04 | P.PN ---
Subjective Progress Note Date: 07/26/24 Principal diagnosis: Chronic respiratory failure. This is a 49-year-old male patient with a known history of recurrent ventilatory dependent respiratory failure secondary to pneumonias and mucous plugging, Crohn's disease, status post colectomy and diverting ileostomy, tracheobr onchomalacia, DVT, CVA/TIA, right below the knee amputation, history of cardiac arrest in 2021. He was recently treated for Pseudomonas aeruginosa and corynebacterium stratum noted on bronchoscopy wash from 07/04/2024. He was on and off the ventilator throughout his stay wean admission on 06/19/2024 to discharge on 07/16/2024 to [facility]. Discharge planning had worked hard on finding a bed for him. All of his hospital stay information was reviewed with their liaison who accepted the patient. He has used up all his long-term acute care days. [facility] received the patient on 07/16/2024 and only kept him maybe a few hours and sent him back here to the emergency room stating they are unable to take care of him. We saw the patient on consultation on 07/17/2024, and considering the patient was doing fairly well, we recommended that the patient could be discharged home. However patient came back yesterday with recurrent episodes of shortness of breath, possibly related to worsening tracheal secretions and possibly sometimes mucous plugging. We saw the patient again today, he seems to be very comfortable, not in any distress, on trach collar, and his chest x-ray showed mostly minimal atelectasis no clear-cut evidence of pneumonia. Patient had a relatively normal CBC with WBC count of 8.9 hemoglobin 12.6 electrolytes are normal renal profile is normal, we believe the patient was mostly readmitted only because of placement issues. The patient is seen today July 20, 2024 in follow-up in the intensive care unit. Transferred here from 3 . after a rapid response team was called on him for worsening shortness of breath and hypotension. He was placed back on mechanical ventilator. Current settings assist-control mode at a rate of 20, tidal volume 500, FiO2 60% and a PEEP of 5. Blood gases unable to be obtained per respiratory therapy. White count 10.5. Hemoglobin 11.4. Platelets 185. Sodium 136. Potassium 5.0. Bicarb 27. BUN 38. Creatinine 0.57. Glucose 116. Procalcitonin 1.05. Urinalysis with large leukocyte Estrace, high WBCs, high RBCs. Culture pending. Current temperature 101.1. Chest x-ray reveals left basilar linear atelectasis with some similar right basilar airspace opacities. Left IJ approach dual-lumen PICC line in place. Tracheostomy cannula in stable position. He remains on DuoNeb inhalations. Receiving TPN currently at 30 mL/h with a goal of 95 mL/h. Lipids every 72 hours. He remains on therapeutic Lovenox at 90 mg SQ every 12 hours. Continued on vancomycin and Avycaz. The patient is seen today July 21, 2024 in follow-up in the intensive care unit. He is currently awake and alert. Not requiring any sedation. He remains on the mechanical ventilator currently on assist-control mode with a tidal volume of 500, FiO2 30% and a PEEP of 5. He remains on antibiotics in the form of vancomycin and Avycaz. Receiving normal saline at 75 mL/h. Electrolytes are being replaced. He is on TPN at 95 mL/h. Lipids every 72 hours. Urine culture revealed no growth. Sputum culture pending. White count 8.6. Hemoglobin 8.6. Platelets 139. Sodium 140. Potassium 2.5. Bicarb 23. BUN 25. Creatinine 0.35. AST 21. ALT 29. He remains on therapeutic Lovenox. He is currently afebrile. Hemodynamically stable. The patient is seen today July 22, 2024 in follow-up in the intensive care unit. He is currently at and alert in no acute distress. He has been trialed on trach collar only lasted approximately 30 minutes yesterday. He has been on trach collar 40% FiO2 today. He asked to go back on the vent stating he cannot breathe. When on the vent he is on assist-control mode at a rate of 20, tidal volume 500, FiO2 30% and a PEEP of 5. He has normal saline at 75 mL/h. TPN at 95 mL/h. Receiving lipids every 72 hours. Sputum culture is positive for Pseudomonas aeruginosa. Blood culture pending. Urine culture revealed no growth. Chest x-ray continues to show similar bibasilar airspace opacities most likely atelectasis versus infiltrate. White count 4.7. Hemoglobin 8.7. Platelets 144. Sodium 143. Potassium 3.8. Bicarb 23. BUN 20. Creatinine 0.40. Glucose 110. Sharlene on vancomycin and Avycaz. Continued on DuoNeb inhalations. Lovenox for anticoagulation. Receiving Ativan 1 mg IV every 6 ho urs as needed for anxiety. The patient is seen today July 23, 2024 in follow-up in the intensive care unit. He is currently on the mechanical ventilator in assist-control mode 20, tidal volume 500, FiO2 30% and a PEEP of 5. Off sedation currently. Awake and alert in no acute distress. He is being nourished with TPN at 95 mL/h. Lipids every 72 hours. He has normal saline at 75 mL/h. He is continued on DuoNeb inhalations. Therapeutic Lovenox. He remains on vancomycin and Avycaz. Chest x-ray continues to show low lung volumes with tracheostomy cannula in stable position. Urine culture was positive for Pseudomonas aeruginosa. Urine culture revealed no growth. Blood culture revealed no growth. Hemoglobin 8.1. Platelets 156. Sodium 137. Potassium 3.8. Bicarb 23. BUN 17. Creatinine 0.34. Glucose 112. Arterial blood gases on 100% FiO2 revealed a PO2 of 80, PCO2 76 and a pH of 7.14. The patient is seen today July 24, 2024 in follow-up in the intensive care unit. He is currently awake and alert in no acute distress. He is still on the mechanical ventilator and assist-control mode at a rate of 20, tidal volume 500, FiO2 30% and a PEEP of 5. Morning blood gases revealed a PaO2 of 128, PCO2 of 37 and a pH of 7.43. He is being nourished with TPN at 70 mL/h. Lipids every 72 hours. Normal saline at 75 mL/h. He has been changed to Zerbaxa antibiotics per ID service. Sputum culture is positive for Pseudomonas aeruginosa. Quite resistant. Blood culture revealed no growth. Urine culture revealed no growth. White count 4.1. Hemoglobin 8.3. Platelets 173. Sodium 136. Potassium 3.9. Bicarb 23. BUN 16. Creatinine 0.34. Glucose 105. He remains on DuoNeb i nhalations. Therapeutic Lovenox. Ativan for anxiety. Scopolamine patch in place. Midline has been placed for IV access. Chest x-ray shows left perihilar opacities. The patient is seen today July 25, 2024 in follow-up in the intensive care unit. He is awake and alert. Currently on the mechanical ventilator assist-control mode at a rate of 20, tidal volume 500, FiO2 25% and a PEEP of 5. Morning blood gases revealed a PaO2 of 77, HMQ173 and a pH of 7.45. Yesterday he was on pressure support and CPAP for nearly the whole day. He was rested at night back on the ventilator. He has been nursed with TPN at 70 mL/h. He is receiving antibiotics in the form of Zerbaxa. This. Lipids every [address] patch in place. Culture was positive for Pseudomonas aeruginosa. Blood cult ures revealed no growth. Urine culture revealed no growth. White count 4.4. Hemoglobin 8.8. Platelets 180. Sodium 133. Potassium 4.1. Bicarb 26. BUN 13. Creatinine 0.38. Glucose 100. Progress note dated July 26, 2024. The patient is seen today in intensive care unit room #2 58. The patient remains on mechanical ventilator. Since yesterday at 9 AM, he has been on pressor support of 10, CPAP of 5. He is on FiO2 25%. Blood gases show pO2 of 86, pCO2 of 43, pH of 7.39. He is getting TPN at 70 cc an hour, saline at 75 cc an hour, and he continues on Zerbaxa. He has had an uneventful day and night. Current laboratory data includes a PO2 of 86, [id number], pH is 7.39. Sodium 136, potassium 3.7, chlorides 106, CO2 25, BUN 14, and creatinine 0.32. Glucose was 122. Calcium 8.8, phosphorus 3.7 magnesium is normal at 1.8. CBC is currently pending. Sputum from July 20 was positive for multidrug-resistant Pseudomonas. Chest x-ray continues to show bilateral infiltrates, more left-sided than right. The chest x-ray is largely unchanged. He is get a midline tracheostomy tube. Objective - Vital Signs Vital signs: Vital Signs Temp 98.0 F 07/26/24 04:00 Pulse 60 07/26/24 05:00 Resp 17 07/26/24 05:00 BP 91/48 07/26/24 01:00 Pulse Ox 96 07/26/24 05:00 FiO2 25 07/26/24 04:00 Intake & Output 07/25/24 07/25/24 07/26/24 06:59 18:59 06:59 Intake Total 1840 1840 1550 Output Total 2625 2625 1600 Balance -785 -785 -50 Weight 95 kg 92.9 kg Intake: IV 1000 1000 850 Ceftolozane/Tazobactam 3 100 100 gm In Sodium Chloride 0.9 % 100 ml @ 100 mls/hr IV Q8HR [facility] Rx#:[id number] Magnesium Sulfate-D5w Pmx 100 1 gm In Dextrose/Water 1 100ml.bag @ 100 mls/hr IVPB ONCE ONE Rx#: [id number] Sodium Chloride 0.9% 1, 900 900 750 000 ml @ 75 mls/hr IV . [id number] [facility] Rx#:[id number] TPN/PPN 840 840 700 Mvi, Adult No.4 with Vit 840 840 700 K 10 ml Trace (Conc-1Ml/ Dose) 1 ml Sodium Chloride 4Meq/ml Vial 50 meq Potassium Chloride 10 meq Calcium Gluconate 1 gm Magnesium Sulfate gm 1 gm Sodium Phosphate 21 mmol Potassium Acetate 24 meq In Amino Acids 5 %/ Dextrose 20 % 1,000 ml @ 70 mls/hr IV .BY DURATION [facility] Rx#:[id number] Output: Urine 2075 2175 1600 Stool 550 450 Other: Voiding Method Indwelling Catheter Indwelling Catheter Indwelling Catheter ABP, PAP, CO, CI - Last Documented Arterial Blood Pressure 108/42 - Exam No acute distress, oriented 3, midline tracheostomy tube in place. HEENT examination is grossly unremarkable. Neck supple. Full range of motion. No adenopathy thyromegaly or neck vein distention. Cardiovascular examination reveals regular rhythm rate. S1-S2 normal. No S3 or S4. No discernible murmur noted. Lungs reveal bilateral diffuse rhonchi. No wheezes. No crackles. Breath sounds are equal bilaterally. Abdomen reveals an enterocutaneous fistula. Abdomen is otherwise soft. Extremities reveal chronic contractures. Skin is without rash or lesion. Neurologic examination is brief but nonfocal. - Labs CBC & Chem 7: 07/25/24 05:35 07/26/24 04:40 Labs: Abnormal Lab Results - Last 24 Hours (Table) 07/25/24 07/25/24 07/26/24 Range/Units 05:35 11:31 04:40 ABG HCO3 (21-25) mmol/L ABG Total CO2 (19-24) mmol/L ABG O2 Saturation (94-97) % Hemoglobin (13.0-17.5) gm/dL Sodium 133 L 136 L (137-145) mmol/L Creatinine 0.38 L 0.32 L (0.66-1.25) mg/dL Glucose 122 H (74-99) mg/dL POC Glucose (mg/dL) 131 H (70-110) mg/dL 07/26/24 Range/Units 05:13 ABG HCO3 26 H (21-25) mmol/L ABG Total CO2 27 H (19-24) mmol/L ABG O2 Saturation 97.5 H (94-97) % Hemoglobin 9.3 L (13.0-17.5) gm/dL Sodium (137-145) mmol/L Creatinine (0.66-1.25) mg/dL Glucose (74-99) mg/dL POC Glucose (mg/dL) (70-110) mg/dL Microbiology - Last 24 Hours (Table) 07/20/24 15:20 Blood Culture - Final Blood Assessment and Plan Assessment: Acute on chronic hypoxemic and hypercapnic respiratory failure, mainly secondary to recurrent mucous plugging. The patient was placed back on mechanical ventilation, July 19. Hypotension requiring fluid resuscitation, recovered. Another extended stay within the hospital from June 19, 2024 to July 16, 2024 for multiple medical issues including a left lower lobe pneumonia. Bronchoscopy 06/22/2024 with cultures positive for Pseudomonas aeruginosa and corynebacterium striatum. Repeat bronchoscopy with BAL 07/04/2024 again with multidrug-resistant Pseudomonas aeruginosa. History of recurrent ventilator dependent respiratory failure, secondary to pneumonia and mucous plugging. Chronic anxiety. Tracheal stenosis. History of sepsis, secondary to pneumonia. Crohn's disease, with previous bowel perforation, status post colectomy and diverting ileostomy. Tracheobronchomalacia. History of DVT. History of CVA/TIA. Right below the knee amputation. History of asystole/cardiac arrest, 2021. Plan: Plan dated July 26, 2024. The patient is seen again in the intensive care unit, room #2 58. The patient remains on pressor support, of 10, CPAP of 5, and 25%, since not o'clock in the morning, on the . He continues with TPN at 70 cc an hour, and saline at 75 cc an hour. He is currently on Zerbaxa, for his multidrug-resistant Pseudomonas. We did have a conversation with the patient a couple days ago, about CODE STATUS, the patient wanted to continue to be a full code. Discharge planning underway, but discharge options are limited. According to the supply chain planner, the patient could be discharged to home, she is probably not tenable, or to a skilled nursing, in [place], called [facility]. Labs, x-rays, medications are reviewed. We will continue to follow. Prognosis is guarded. Dictation was produced using [employer] dictation software. Please excuse any grammatical, word or spelling errors. Time with Patient: Greater than 30
[2024-07-26] MEDS: POTASSIUM CHLORIDE 20 MEQ in WATER FOR INJECTION 1 100ML.BAG IVPB ONE (06:06)
[2024-07-26] MEDS: MAGNESIUM SULFATE-D5W PMX 1 GM in DEXTROSE/WATER 1 100ML.BAG IVPB ONE (06:07)
--- NOTE | 2024-07-26 07:52 | XR ---
EXAMINATION TYPE: XR chest 1V portable DATE OF EXAM: 07/26/2024 5:10 AM COMPARISON: Chest radiograph from one day prior. CLINICAL INDICATION: Male, 49 years old with history of mechanically ventilated; [facility] TECHNIQUE: XR chest 1V portable Frontal view of the chest. FINDINGS: Lungs/Pleura: Similar left-sided airspace opacities. There is no evidence of pleural effusion, focal consolidation, or pneumothorax. Pulmonary vascularity: Unremarkable. Heart/mediastinum: Cardiomediastinal silhouette is unremarkable. Musculoskeletal: No acute osseous pathology. Other findings: None Lines/Tubes: Tracheostomy cannula tip projecting over the trachea. Right internal jugular central venous catheter with distal tip at the cavoatrial junction. IMPRESSION: Similar left-sided airspace opacities. [facility], , 07/26/2024 7:49 AM
--- NOTE | 2024-07-26 11:55 | P.PN ---
Subjective Progress Note Date: 07/25/24 Principal diagnosis: Reason for follow-up is sepsis and pneumonia Patient is a 49-year-old male with multiple comorbidities including Crohn's disease status post colectomy diverting ileostomy tracheobronchomalacia CVA TIA cardiac arrest and history of recurrent pneumonias secondary to mucous plugging patient was recently discharged from this facility has been brought back to the hospital concerning for increasing shortness of breath and hypoxemia, patient did have worsening respiratory status requiring intubation and admission to the ICU. On today's evaluation that is 07/25/2024, Patient is afebrile this morning patient remains to be intubated on the vent FiO2 is currently 25% breathing comfortably no further issues with the mucous plugging cognitive changes reported by the nursing staff. Patient did have a white count of 4.43, creatinine is 0.38 blood culture has been negative Objective - Vital Signs Vital signs: Vital Signs Temp 98.4 F 07/25/24 16:00 Pulse 78 07/25/24 20:26 Resp 23 07/25/24 19:00 BP 107/68 07/25/24 19:00 Pulse Ox 99 07/25/24 19:00 FiO2 25 07/25/24 20:19 Intake & Output 07/25/24 07/25/24 07/26/24 06:59 18:59 06:59 Intake Total 1840 1840 145 Output Total 2625 2625 200 Balance -785 -785 -55 Weight 95 kg Intake: IV 1000 1000 75 Ceftolozane/Tazobactam 3 100 gm In Sodium Chloride 0.9 % 100 ml @ 100 mls/hr IV Q8HR [facility] Rx#:[id number] Magnesium Sulfate-D5w Pmx 100 1 gm In Dextrose/Water 1 100ml.bag @ 100 mls/hr IVPB ONCE ONE Rx#: [id number] Sodium Chloride 0.9% 1, 900 900 75 000 ml @ 75 mls/hr IV . [id number] [facility] Rx#:[id number] TPN/PPN 840 840 70 Mvi, Adult No.4 with Vit 840 840 70 K 10 ml Trace (Conc-1Ml/ Dose) 1 ml Sodium Chloride 4Meq/ml Vial 50 meq Potassium Chloride 10 meq Calcium Gluconate 1 gm Magnesium Sulfate gm 1 gm Sodium Phosphate 21 mmol Potassium Acetate 24 meq In Amino Acids 5 %/ Dextrose 20 % 1,000 ml @ 70 mls/hr IV .BY DURATION [facility] Rx#:[id number] Output: Urine 2075 2175 200 Stool 550 450 Other: Voiding Method Indwelling Catheter Indwelling Catheter ABP, PAP, CO, CI - Last Documented Arterial Blood Pressure 146/62 - Exam GENERAL DESCRIPTION: Middle-age male lying in bed in no distress RESPIRATORY SYSTEM: Unlabored breathing , decreased breath sounds at bases HEART: S1 S2 regular rate and rhythm , ABDOMEN: Soft , no tenderness EXTREMITIES: Some swelling to the leg but no redness - Labs CBC & Chem 7: 07/25/24 05:35 07/26/24 04:40 Labs: Abnormal Lab Results - Last 24 Hours (Table) 07/25/24 07/25/24 07/25/24 Range/Units 00:14 05:35 05:35 WBC 4.43 L (4.50-10.00) 10*3/uL RBC 3.53 L (4.40-5.60) 10*6/uL Hgb 8.8 L (13.0-17.0) g/dL Hct 29.5 L (39.6-50.0) % MCH 24.9 L (27.0-32.0) pg MCHC 29.8 L (32.0-37.0) g/dL ABG pO2 (83-108) mmHg ABG HCO3 (21-25) mmol/L ABG Total CO2 (19-24) mmol/L Hemoglobin (13.0-17.5) gm/dL Sodium 133 L (137-145) mmol/L Creatinine 0.38 L (0.66-1.25) mg/dL POC Glucose (mg/dL) 114 H (70-110) mg/dL 07/25/24 07/25/24 Range/Units 05:48 11:31 WBC (4.50-10.00) 10*3/uL RBC (4.40-5.60) 10*6/uL Hgb (13.0-17.0) g/dL Hct (39.6-50.0) % MCH (27.0-32.0) pg MCHC (32.0-37.0) g/dL ABG pO2 77 L (83-108) mmHg ABG HCO3 26 H (21-25) mmol/L ABG Total CO2 27 H (19-24) mmol/L Hemoglobin 9.1 L (13.0-17.5) gm/dL Sodium (137-145) mmol/L Creatinine (0.66-1.25) mg/dL POC Glucose (mg/dL) 131 H (70-110) mg/dL Microbiology - Last 24 Hours (Table) 07/20/24 15:20 Blood Culture - Final Blood Assessment and Plan (1) Pneumonia Current Visit: No Status: Acute Code(s): J18.9 - PNEUMONIA, UNSPECIFIED ORGANISM SNOMED Code(s): 268488291 (2) Sepsis Current Visit: No Status: Acute Code(s): A41.9 - SEPSIS, UNSPECIFIED ORG ANISM SNOMED Code(s): 71366955 Plan: 1patient with sepsis in this patient who did have fever tachycardia elevated white count meeting currently for SIRS source is likely pneumonia etiology could be mucous plugging and inadequate suction in the outpatient setting plus minus a catheter associated as a patient also significantly positive UA. 2sputum culture has been requested which are currently growing Pseudomonas sensitivities pending urine culture have been negative blood culture so far negative 3patient sputum positive for Pseudomonas now resistant to Avycaz. 4patient is currently on Zerbaxa would consider short 7 to 10-day course of antibiotics and monitor clinical course closely Dictation was produced using [employer] dictation software. please excuse any grammatical, word or spelling errors. Time with Patient: Less than 30
[2024-07-26 18:13] LABS: Glucose,Whole Blood 115 mg/dL (70-110)
--- NOTE | 2024-07-26 18:37 | P.PN ---
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 Patient also with history of stroke, DVT and chronic medical debility with contractures of his hands bilaterally, and right arm weakness. Patient has had prolonged hospital stay secondary to a Pseudomonas pneumonia and difficulty weaning off the ventilator. He was tolerating trach collar secretions had been improved and he completed a course of IV antibiotics and was discharged to [facility] for rehabilitation. He was brought back in from the [facility] with reports that he was too much care for t he care home staff. He is not a candidate for LTAC as he has been stable on the trach collar and he has no more select specialty days left this calendar year. Discussed with [employer] and they will provide the TPN and patient to be set up with visiting physicians. He was home again for 24 hours and came back to the hospital with complaints of difficulty breathing and sates the suctioning and trach care performed by his mother and son is not going well. He states he had increased secretions. He is not having any chest pains. He is awake and alert, oriented. He has a flat affect. He is unsure what to do and where to discharge to. Social work will be back on Saturday for follow up and assistance with DC planning. White blood cell count 8.96, hgb 12.6, sodium 139, potassium 4.8, BUN 28, creatinine 0.38. Glucose 124. He will be resumed on TPN through the PEG tube. 07/20/2024 Patient is evaluated today in follow up in the ICU. He had developed a suspected mucous plugging of the trach yesterday with respiratory distress and moved to the ICU. He is now on the ventilator with FiO2 of 60%. Chest xray this morning reveals left basilar linear atelectasis with similar right basilar airspace opa cities which may represent atelectasis versus infiltrates. Patient has been started on IV ceftazidime/avibactam with infectious disease and pulmonology following closely. Patient has been resumed on home TPN/Lipids. His ostomy is functioning and draining well. Patient and his mother are upset at the options available, he is unable to go to LTAC due to insurance issues. He was only at the [facility] for 24 hours due to staffing issues and his high level of care. He was home for 24 hours and came back with increased secretions and mucous plugging. The patients mother when asked states she does not know what to do. He will be in the ICU at this time on IV antibiotics and will follow up tomorrow with social work and patient to discuss options and discharge planning needs. He was febrile overnight with T-max 100.3. Sputum culture was collected. White blood cell 10.56, hgb 11.4, BUN 136, potassium 5.0, BUN 38, creatinine 0.57, phos 1.3. Urine is significantly abnormal. Procalcitonin elevated at 1.05. 07/21/2024 Patient evaluated today in follow up in the ICU. Remains on the mechanical ve ntilator with FiO2 40% and PEEP of 5. He is awake alert and oriented. Yesterday discussion was had and family and patient have requested transfer to tertiary care. Discussed the case with [facility] and the decision went to their medical review board. They have declined this patient. Sputum colture growing pseudomonas auerginosa. He remains on the IV ceftazidime/avibactam. Chest xray reveals similar bibasilar airspace opacities which may represent atelectasis vs. infiltrates. Stable support lines and tubes. Labs reveal white blood cell count 8.63, sodium 140, potassium 2.5, BUN 25, creatinine 0.35, nikkie 1.6. Fever has improved. 07/22/2024 Patient is evaluated today in follow up in the intensive care unit. He remains on the mechanical ventilator through the tracheostomy. FiO2 of 30%. He is in a better mood today. Chest xray reveals similar bibasilar airspace opacities which may represent atelectasis vs. infiltrates. Stable support lines and tubes. Sputum culture reveals pseudomonas aeurginosa. He continues on the IV avycaz. 07/23/2024 Patient is evaluated today in follow up remains in the ICU. Patient had respiratory distress today requiring bagging with concern for mucous plugging. Chest xray reviewed with findings of low lung volumes with stable support lines and tubes. No significant change from prior. Patient has been transitioned to IV zerbaxa as the pseudomonas culture now shows resistance to the avycaz. WBC 4.52, hgb 8.1, sodium 137, potassium 3.8, BUN 17, creatinine 0.34. Magnesium 1.9. 07/24/2024 Patient is evaluated today in the ICU. He is currently on CPAP. He is awake alert oriented. Still with some scattered wheezing however lung sounds improved from yesterday. Chest xray reveals development of left perihilar opacities concerning for pneumonia. Stable support lines and tubes. White blood cell count 4.15, hgb 8.3, BUN 16, creatinine 0.34. Magnesium 1.8. 07/25/2024 Patient is evaluated today in the intensive care unit. He remains on CPAP. He is awake alert oriented. He is asking for speech therapy consultation as he wants to trial eating. Unable to do so currently. Chest xray reveals persistent low lung volumes with central vascular congestion and left perihilar acute infiltrate and or atelectasis. White blood cell count 4.43, hemoglobin 8.8, sodium 133, BUN of 13 creatinine 0.38 magnesium 1.7. 07/26/2024 Patient evaluated today in follow up remains in the ICU. He is awake alert oriented. He is currently on CPAP. Remains on IV zerbaxa. Sodium 136, potassium 3.7, BUN 14, creatinine 0.32, magnesium 1.8. REVIEW OF SYSTEMS: CONSTITUTIONAL: No fever, no malaise, no fatigue. HEENT: No recent visual problems or hearing problems. Denied any sore throat. CARDIOVASCULAR: No chest pain, orthopnea, PND, no palpitations, no syncope. PULMONARY: Reports shortness of breath and increased secretions GASTROINTESTINAL: No diarrhea, no nausea, no vomiting, no abdominal pain. NEUROLOGICAL: No headaches, no weakness, no numbness. PHYSICAL EXAMINATION: GENERAL: The patient is alert and oriented x3, not in any acute distress. Well developed, well nourished. HEENT: Pupils are round and equally reacting to light. EOMI. No scleral icterus. No conjunctival pallor. Normocephalic, atraumatic. No pharyngeal erythema. No thyromegaly. Trach in place. On the ventilator. CARDIOVASCULAR: S1 and S2 present. No murmurs, rubs, or gallops. PULMONARY: Chest is clear to auscultation, no wheezing or crackles. ABDOMEN: Soft, nontender, nondistended, normoactive bowel sounds. No palpable organomegaly. Ileostomy in place and functioning with liquid stools. MUSCULOSKELETAL: No joint swelling or deformity. EXTREMITIES: No cyanosis, clubbing, or pedal edema. Right BKA. NEUROLOGICAL: Gross neurological examination did not reveal any focal deficits. Contractures of hands bilaterally. SKIN: No rashes. Assessment and Plan - Acute on chronic hypoxemic and hypercapnic respiratory failure, mainly secondary to mucous plugging. Weaned from the mechanical ventilator to the CPAP. - Prolonged hospital stay and vent dependency - Hypotension with concern for sepsis - Urinary tract infection, POA. Negative urine culture. - Pseudomonas pneumonia history likely a colonizer; repeat sputum pending - Crohn's disease with ileostomy in the past patient is presently on TPN - Right sided otitis media resolved - Tracheobronchomalacia - CVA TIA - History of DVT - Chronic medical debility with contractures of hands bilaterally - Hx of right BKA GI prophylaxis DVT prophylaxis Plan Resume home medications Continue routine trach care with suctioning PRN Continue TPN Ileostomy functioning Patient has been placed back on the mechanical ventilator due to mucous plugging and respiratory distress Patient had evidence of continued mucous plugging. He is currently tolerating the CPAP. Continue bronchodilators ID on consultation and patient has now been transitioned to IV zerbaxa. Urine culture negative and blood culture negative so far Patient is status post 3L of normal saline and will continue at normal saline 75 mls/hr Pulmonary critical care recommended tertiary care center and [facility] has denied the transfer request. Social work on for discharge planning. Monitor electrolyes and renal function The impression and plan of care has been dictated by Coral Medina, Nurse Practitioner as directed. Dr. Mo MD I have performed a history and physical examination and medical decision making of this patient, discussed the same with the dictator, and agree with the dictators assessment and plan as written, documented as a scribe. Based on total visit time, I have performed more than 50% of this visit. Objective - Vital Signs Vital signs: Vital Signs Temp 98.0 F 07/26/24 04:00 Pulse 70 07/26/24 06:00 Resp 15 07/26/24 06:00 BP 91/48 07/26/24 01:00 Pulse Ox 95 07/26/24 06:00 FiO2 25 07/26/24 04:00 Intake & Output 07/25/24 07/25/24 07/26/24 06:59 18:59 06:59 Intake Total 1840 1840 1989 Output Total 6383 5054 2095 Balance -977 -783 -292 Weight 95 kg 92.9 kg Intake: IV 1000 1000 1150 Ceftolozane/Tazobactam 3 100 100 gm In Sodium Chloride 0.9 % 100 ml @ 100 mls/hr IV Q8HR [facility] Rx#:[id number] Magnesium Sulfate-D5w Pmx 100 1 gm In Dextrose/Water 1 100ml.bag @ 100 mls/hr IVPB ONCE ONE Rx#: [id number] Magnesium Sulfate-D5w Pmx 100 1 gm In Dextrose/Water 1 100ml.bag @ 100 mls/hr IVPB ONCE ONE Rx#: [id number] Potassium Chloride 20 meq 50 In Water For Injection 1 100ml.bag @ 50 mls/hr IVPB ONCE ONE Rx#: [id number] Sodium Chloride 0.9% 1, 900 900 900 000 ml @ 75 mls/hr IV . [id number] [facility] Rx#:[id number] TPN/PPN 840 840 840 Mvi, Adult No.4 with Vit 840 840 840 K 10 ml Trace (Conc-1Ml/ Dose) 1 ml Sodium Chloride 4Meq/ml Vial 50 meq Potassium Chloride 10 meq Calcium Gluconate 1 gm Magnesium Sulfate gm 1 gm Sodium Phosphate 21 mmol Potassium Acetate 24 meq In Amino Acids 5 %/ Dextrose 20 % 1,000 ml @ 70 mls/hr IV .BY DURATION [facility] Rx#:[id number] Output: Urine 2075 2175 1775 Stool 550 450 500 Other: Voiding Method Indwelling Catheter Indwelling Catheter Indwelling Catheter ABP, PAP, CO, CI - Last Documented Arterial Blood Pressure 96/38 - Labs CBC & Chem 7: 07/25/24 05:35 07/26/24 04:40 Labs: Abnormal Lab Results - Last 24 Hours (Table) 07/25/24 07/26/24 07/26/24 Range/Units 11:31 04:40 05:13 ABG HCO3 26 H (21-25) mmol/L ABG Total CO2 27 H (19-24) mmol/L ABG O2 Saturation 97.5 H (94-97) % Hemoglobin 9.3 L (13.0-17.5) gm/dL Sodium 136 L (137-145) mmol/L Creatinine 0.32 L (0.66-1.25) mg/dL Glucose 122 H (74-99) mg/dL POC Glucose (mg/dL) 131 H (70-110) mg/dL Microbiology - Last 24 Hours (Table) 07/20/24 15:20 Blood Culture - Final Blood Assessment and Plan Time with Patient: Less than 30
[2024-07-27 00:15] LABS: Glucose,Whole Blood 115 mg/dL (70-110)
[2024-07-27 04:48] LABS: Basophils # (A) 0.04 10*3/uL (0.00-0.10); Basophils % (A) 0.6 %; Eosinophils # (A) 0.36 10*3/uL (0.04-0.35); Eosinophils % (A) 5.2 %; HCT 33.4 % (39.6-50.0); HGB 9.4 g/dL (13.0-17.0); Lymphocytes # (A) 1.56 10*3/uL (0.90-5.00); Lymphocytes % (A) 22.3 %; MCHC 28.1 g/dL (32.0-37.0); MCV 85.2 fL (80.0-97.0); Mean Platelet Volume 11.2 fL (9.5-12.2); Monocytes # (A) 0.55 10*3/uL (0.20-1.00); Monocytes % (A) 7.9 %; Neutrophils # (A) 4.46 10*3/uL (1.80-7.70); Neutrophils % (A) 63.9 %; Platelet Count 200 10*3/uL (140-440); RBC 3.92 10*6/uL (4.40-5.60); WBC 6.98 10*3/uL (4.50-10.00)
[2024-07-27 04:53] LABS: Ionized Calcium 5.2 mg/dL (4.5-5.3)
[2024-07-27 05:04] LABS: African American GFR (CKD) >90 (>60 ml/min/1.73 sqM); Anion Gap 9 mmol/L; Blood Urea Nitrogen 15 mg/dL (9-20); Calcium 9.2 mg/dL (8.4-10.2); Carbon Dioxide 24 mmol/L (22-30); Chloride 105 mmol/L (98-107); Glucose 109 mg/dL (74-99); Magnesium 1.9 mg/dL (1.6-2.3); Non-African American GFR(CKD) >90 (>60 ml/min/1.73 sqM); Phosphorus 3.8 mg/dL (2.5-4.5); Potassium 4.1 mmol/L (3.5-5.1); Sodium 138 mmol/L (137-145)
[2024-07-27] MEDS ORDERED: Magnesium Replacement Protocol 1 EACH MISC MISCELLANE PRN (05:10)
[2024-07-27 06:02] LABS: Glucose,Whole Blood 102 mg/dL (70-110)
[2024-07-27] MEDS: MAGNESIUM SULFATE-D5W PMX 1 GM in DEXTROSE/WATER 1 100ML.BAG IVPB ONE (06:07)
--- NOTE | 2024-07-27 07:14 | P.PN ---
Subjective Progress Note Date: 07/26/24 Principal diagnosis: Reason for follow-up is sepsis and pneumonia Patient is a 49-year-old male with multiple comorbidities including Crohn's disease status post colectomy diverting ileostomy tracheobronchomalacia CVA TIA cardiac arrest and history of recurrent pneumonias secondary to mucous plugging patient was recently discharged from this facility has been brought back to the hospital concerning for increasing shortness of breath and hypoxemia, patient did have worsening respiratory status requiring intubation and admission to the ICU subsequently transition to trach collar on 07/26/2024 On today's evaluation that is 07/26/2024,the patient denies any fever or any chills, patient is breathing comfortably and has been switched over to trach collar no further follow-up with mucous plugging nausea vomiting or any other changes reported patient is currently on a 28% FiO2. Patient white count is 4.43 as of yesterday no CBC was done today creatinine is 0.32 blood culture has been negative Objective - Vital Signs Vital signs: Vital Signs Temp 98.2 F 07/26/24 08:00 Pulse 68 07/26/24 11:51 Resp 17 07/26/24 11:00 BP 91/48 07/26/24 01:00 Pulse Ox 96 07/26/24 11:00 FiO2 25 07/26/24 11:55 Intake & Output 07/25/24 07/26/24 07/26/24 18:59 06:59 18:59 Intake Total 1840 1990 825 Output Total 7283 2090 850 Balance -785 -285 -25 Weight 92.9 kg Intake: IV 1000 1150 475 Ceftazidime/Avibactam 2.5 100 gm In Sodium Chloride 0. 9% 100 ml @ 50 mls/hr IVPB Q8H [facility] Rx#: [id number] Ceftolozane/Tazobactam 3 100 gm In Sodium Chloride 0.9 % 100 ml @ 100 mls/hr IV Q8HR [facility] Rx#:[id number] Magnesium Sulfate-D5w Pmx 100 1 gm In Dextrose/Water 1 100ml.bag @ 100 mls/hr IVPB ONCE ONE Rx#: [id number] Magnesium Sulfate-D5w Pmx 100 1 gm In Dextrose/Water 1 100ml.bag @ 100 mls/hr IVPB ONCE ONE Rx#: [id number] Potassium Chloride 20 meq 50 In Water For Injection 1 100ml.bag @ 50 mls/hr IVPB ONCE ONE Rx#: [id number] Sodium Chloride 0.9% 1, 900 900 375 000 ml @ 75 mls/hr IV . [id number] [facility] Rx#:[id number] TPN/PPN 840 840 350 Mvi, Adult No.4 with Vit 840 840 350 K 10 ml Trace (Conc-1Ml/ Dose) 1 ml Sodium Chloride 4Meq/ml Vial 50 meq Potassium Chloride 10 meq Calcium Gluconate 1 gm Magnesium Sulfate gm 1 gm Sodium Phosphate 21 mmol Potassium Acetate 24 meq In Amino Acids 5 %/ Dextrose 20 % 1,000 ml @ 70 mls/hr IV .BY DURATION [facility] Rx#:[id number] Output: Urine 2175 1775 850 Stool 450 500 Other: Voiding Method Indwelling Catheter Indwelling Catheter Indwelling Catheter ABP, PAP, CO, CI - Last Documented Arterial Blood Pressure 122/51 - Exam GENERAL DESCRIPTION: Middle-age male lying in bed in no distress RESPIRATORY SYSTEM: Unlabored breathing , decreased breath sounds at bases HEART: S1 S2 regular rate and rhythm , ABDOMEN: Soft , no tenderness EXTREMITIES: Some swelling to the leg but no redness - Labs CBC & Chem 7: 07/27/24 04:30 07/27/24 04:30 Labs: Abnormal Lab Results - Last 24 Hours (Table) 07/26/24 07/26/24 Range/Units 04:40 05:13 ABG HCO3 26 H (21-25) mmol/L ABG Total CO2 27 H (19-24) mmol/L ABG O2 Saturation 97.5 H (94-97) % Hemoglobin 9.3 L (13.0-17.5) gm/dL Sodium 136 L (137-145) mmol/L Creatinine 0.32 L (0.66-1.25) mg/dL Glucose 122 H (74-99) mg/dL Microbiology - Last 24 Hours (Table) 07/20/24 15:20 Blood Culture - Final Blood Assessment and Plan (1) Pneumonia Current Visit: No Status: Acute Code(s): J18.9 - PNEUMONIA, UNSPECIFIED ORGANISM SNOMED Code(s): 924346760 (2) Sepsis Current Visit: No Status: Acute Code(s): A41.9 - SEPSIS, UNSPECIFIED ORGANISM SNOMED Code(s): 40679274 Plan: 1patient with sepsis in this patient who did have fever tachycardia elevated white count meeting currently for SIRS source is likely pneumonia etiology could be mucous plugging and inadequate suction in the outpatient setting plus minus a catheter associated as a patient also significantly positive UA. 2sputum culture has been requested which are currently growing Pseudomonas sensitivities pending urine culture have been negative blood culture so far negative 3patient sputum positive for Pseudomonas now resistant to Avycaz. 4patient is afebrile white count has been normal has been transition to trach collar we will treat with Zerbaxa to finish 7 to 10-day course of antibiotics and monitor clinical course closely Dictation was produced using [employer] dictation software. please excuse any grammatical, word or spelling errors. Time with Patient: Less than 30
--- NOTE | 2024-07-27 08:42 | XR ---
EXAMINATION TYPE: XR chest 1V portable DATE OF EXAM: 07/27/2024 5:18 AM COMPARISON: 07/26/2024 CLINICAL INDICATION: Male, 49 years old with history of mechanically ventilated, , FINDINGS: Tracheostomy cannula. Left CVC tip in the cavoatrial junction. Surgical clips right base of the neck. Low lung volumes. Increasing perihilar and interstitial opacities. Ongoing patchy left greater than right bibasilar opacities. Possible small left pleural effusion also persists. IMPRESSION: Hypoventilatory changes with worsening interstitial opacities, probably early developing interstitial pulmonary edema. Patchy left greater than right bibasilar opacities also persist. [facility], Workstation: [id number], 07/27/2024 8:39 AM
--- NOTE | 2024-07-27 12:28 | P.PN ---
Subjective Progress Note Date: 07/27/24 On 07/27/2024, the patient has been on a 28% trach collar for the past 24 hours. The patient was taken off the mechanical ventilator yesterday. Chest x-ray from today shows smaller lung volumes, some atelectatic changes lung base bilaterally along with that there is mild pulm vessel congestion and patchy left more than right bibasilar opacities related to atelectasis. Sputum samples positive for Pseudomonas aeruginosa and the patient is currently on ceftolozane/tazobactam. Patient is afebrile. The patient is on TPN for nutritional support. The patient ileostomy output was noted and remains quite high. Urine output is over 325 cc an hour. Fluid balance is -1.4 L over the past 24 hours and the patient has a #6 XLT Shiley tracheostomy tube in place. Arousable, able to communicate, profoundly weak and chronically debilitated. Blood work from today shows a white cell count of 6.9, hemoglobin 9.4, platelet of 200, BUN 50 with a creatinine of 0.34 and a sodium levels at 138 and a potassium level is at 4.1. Objective - Vital Signs Vital signs: Vital Signs Temp 98.1 F 07/27/24 08:00 Pulse 86 07/27/24 08:24 Resp 20 07/27/24 08:00 BP 91/48 07/26/24 01:00 Pulse Ox 100 07/27/24 08:15 FiO2 28 07/27/24 08:15 Intake & Output 07/26/24 07/27/24 07/27/24 18:59 06:59 18:59 Intake Total 1795 3003.5 460 Output Total 2585 3615 500 Balance -790 -611.5 -40 Weight 91.7 kg Intake: IV 1025 1740 320 Ceftazidime/Avibactam 2.5 200 100 gm In Sodium Chloride 0. 9% 100 ml @ 50 mls/hr IVPB Q8H [facility] Rx#: [id number] Mvi, Adult No.4 with Vit 840 70 K 10 ml Trace (Conc-1Ml/ Dose) 1 ml Sodium Chloride 4Meq/ml Vial 64 meq Potassium Chloride 10 meq Calcium Gluconate 1 gm Magnesium Sulfate gm 1 .25 gm Sodium Phosphate 21 mmol Potassium Acetate 24 meq In Amino Acids 5 %/Dextrose 20 % 1,000 ml @ 70 mls/hr IV .BY DURATION [facility] Rx#: [id number] Sodium Chloride 0.9% 1, 825 900 150 000 ml @ 75 mls/hr IV . [id number] [facility] Rx#:[id number] Intake, IV Titration 1263.5 Amount Ceftolozane/Tazobactam 3 100 gm In Sodium Chloride 0.9 % 100 ml @ 100 mls/hr IV Q8HR [facility] Rx#:[id number] Magnesium Sulfate-D5w Pmx 100 1 gm In Dextrose/Water 1 100ml.bag @ 100 mls/hr IVPB ONCE ONE Rx#: [id number] Mvi, Adult No.4 with Vit 1063.5 K 10 ml Trace (Conc-1Ml/ Dose) 1 ml Sodium Chloride 4Meq/ml Vial 64 meq Potassium Chloride 10 meq Calcium Gluconate 1 gm Magnesium Sulfate gm 1 .25 gm Sodium Phosphate 21 mmol Potassium Acetate 24 meq In Amino Acids 5 %/Dextrose 20 % 1,000 ml @ 70 mls/hr IV .BY DURATION [facility] Rx#: [id number] TPN/PPN 770 140 Mvi, Adult No.4 with Vit 770 K 10 ml Trace (Conc-1Ml/ Dose) 1 ml Sodium Chloride 4Meq/ml Vial 50 meq Potassium Chloride 10 meq Calcium Gluconate 1 gm Magnesium Sulfate gm 1 gm Sodium Phosphate 21 mmol Potassium Acetate 24 meq In Amino Acids 5 %/ Dextrose 20 % 1,000 ml @ 70 mls/hr IV .BY DURATION [facility] Rx#:[id number] Mvi, Adult No.4 with Vit 140 K 10 ml Trace (Conc-1Ml/ Dose) 1 ml Sodium Chloride 4Meq/ml Vial 64 meq Potassium Chloride 10 meq Calcium Gluconate 1 gm Magnesium Sulfate gm 1 .25 gm Sodium Phosphate 21 mmol Potassium Acetate 24 meq In Amino Acids 5 %/Dextrose 20 % 1,000 ml @ 70 mls/hr IV .BY DURATION [facility] Rx#: [id number] Output: Urine 2135 1940 500 Stool 450 1675 Other: Voiding Method Indwelling Catheter Indwelling Catheter Indwelling Catheter ABP, PAP, CO, CI - Last Documented Arterial Blood Pressure 135/63 - Exam GENERAL EXAM: Awake, alert 49-year-old male patient, on 28 % trach collar HEAD: Normocephalic. EYES: Normal reaction of pupils, equal size. NOSE: Clear with pink turbinates. THROAT: Tracheostomy tube secured in place. No erythema or exudates. NECK: No masses, no JVD. CHEST: No chest wall deformity. LUNGS: Equal air entry with coarse rhonchi bilaterally. CVS: S1 and S2 normal with no audible murmur, regular rhythm. ABDOMEN: Enterocutaneous fistula over the abdominal wall. No hepatosplenomegaly, normal bowel sounds. SPINE: No scoliosis or deformity SKIN: No rashes CENTRAL NERVOUS SYSTEM: No focal deficits, tone is normal in all 4 extremities. EXTREMITIES: Extensive muscle atrophy. Contractures. There is no peripheral edema. No clubbing, no cyanosis. Peripheral pulses are intact. - Labs CBC & Chem 7: 07/27/24 04:30 07/27/24 04:30 Labs: Abnormal Lab Results - Last 24 Hours (Table) 07/26/24 07/27/24 07/27/24 Range/Units 18:11 00:14 04:30 RBC (4.40-5.60) 10*6/uL Hgb (13.0-17.0) g/dL Hct (39.6-50.0) % MCH (27.0-32.0) pg MCHC (32.0-37.0) g/dL Eosinophils # (0.04-0.35) 10*3/uL Creatinine 0.34 L (0.66-1.25) mg/dL Glucose 109 H (74-99) mg/dL POC Glucose (mg/dL) 115 H 115 H (70-110) mg/dL 07/27/24 Range/Units 04:30 RBC 3.92 L (4.40-5.60) 10*6/uL Hgb 9.4 L (13.0-17.0) g/dL Hct 33.4 L (39.6-50.0) % MCH 24.0 L (27.0-32.0) pg MCHC 28.1 L (32.0-37.0) g/dL Eosinophils # 0.36 H (0.04-0.35) 10*3/uL Creatinine (0.66-1.25) mg/dL Glucose (74-99) mg/dL POC Glucose (mg/dL) (70-110) mg/dL Assessment and Plan Plan: Acute on chronic hypoxemic and hypercapnic respiratory failure, mainly secondary to recurrent mucous plugging. The patient has had multiple bronchoscopies with BAL with the most recent July 07, 2024. The culture at that time was positive for Pseudomonas aeruginosa and the repeat cultures from the sputum on 07/20/2024 still showing Pseudomonas aeruginosa and a chest x-ray from 07/27/2024 showing some atelectatic changes in lung bases bilaterally. The patient remains on ceftolozane tazobactam. Afebrile. No significant leukocytosis. Respiratory secretions are scant and the patient is currently on a 28% trach collar. The patient has profound neuromuscular weakness, contributing to the respiratory failure. Respiratory secretions are scant. 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 History of sepsis, secondary to pneumonia Crohn's disease, with previous bowel perforation, status post colectomy and diverting ileostomy Tracheobronchomalacia History of DVT History of CVA/TIA Right below the knee amputation History of asystole/cardiac arrest, 2021 Plan: Keep the patient on a 28% trach collar Remains on TPN and lipids for nutritional support Remains on therapeutic Lovenox Continue bronchodilators Continue Zerbaxa Continue frequent suctioning as necessary Remains on scopolamine patch We will continue to follow Working with case management regarding placement issues as the patient has significant social barriers for discharge Critical care evaluation that was done at 33 minutes. Time with Patient: Greater than 30
--- NOTE | 2024-07-27 16:41 | P.PN ---
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 Patient also with history of stroke, DVT and chronic medical debility with contractures of his hands bilaterally, and right arm weakness. Patient has had prolonged hospital stay secondary to a Pseudomonas pneumonia and difficulty weaning off the ventilator. He was tolerating trach collar secretions had been improved and he completed a course of IV antibiotics and was discharged to [facility] for rehabilitation. He was brought back in from the [facility] with reports that he was too much care for t he alf staff. He is not a candidate for LTAC as he has been stable on the trach collar and he has no more select specialty days left this calendar year. Discussed with [facility] and they will provide the TPN and patient to be set up with visiting physicians. He was home again for 24 hours and came back to the hospital with complaints of difficulty breathing and sates the suctioning and trach care performed by his mother and son is not going well. He states he had increased secretions. He is not having any chest pains. He is awake and alert, oriented. He has a flat affect. He is unsure what to do and where to discharge to. Social work will be back on Saturday for follow up and assistance with DC planning. White blood cell count 8.96, hgb 12.6, sodium 139, potassium 4.8, BUN 28, creatinine 0.38. Glucose 124. He will be resumed on TPN through the PEG tube. 07/20/2024 Patient is evaluated today in follow up in the ICU. He had developed a suspected mucous plugging of the trach yesterday with respiratory distress and moved to the ICU. He is now on the ventilator with FiO2 of 60%. Chest xray this morning reveals left basilar linear atelectasis with similar right basilar airspace opa cities which may represent atelectasis versus infiltrates. Patient has been started on IV ceftazidime/avibactam with infectious disease and pulmonology following closely. Patient has been resumed on home TPN/Lipids. His ostomy is functioning and draining well. Patient and his mother are upset at the options available, he is unable to go to LTAC due to insurance issues. He was only at the community hospital for 24 hours due to staffing issues and his high level of care. He was home for 24 hours and came back with increased secretions and mucous plugging. The patients mother when asked states she does not know what to do. He will be in the ICU at this time on IV antibiotics and will follow up tomorrow with social work and patient to discuss options and discharge planning needs. He was febrile overnight with T-max 100.3. Sputum culture was collected. White blood cell 10.56, hgb 11.4, BUN 136, potassium 5.0, BUN 38, creatinine 0.57, phos 1.3. Urine is significantly abnormal. Procalcitonin elevated at 1.05. 07/21/2024 Patient evaluated today in follow up in the ICU. Remains on the mechanical ve ntilator with FiO2 40% and PEEP of 5. He is awake alert and oriented. Yesterday discussion was had and family and patient have requested transfer to tertiary care. Discussed the case with Jamarcus Iniguez and the decision went to their medical review board. They have declined this patient. Sputum colture growing pseudomonas auerginosa. He remains on the IV ceftazidime/avibactam. Chest xray reveals similar bibasilar airspace opacities which may represent atelectasis vs. infiltrates. Stable support lines and tubes. Labs reveal white blood cell count 8.63, sodium 140, potassium 2.5, BUN 25, creatinine 0.35, nikkie 1.6. Fever has improved. 07/22/2024 Patient is evaluated today in follow up in the intensive care unit. He remains on the mechanical ventilator through the tracheostomy. FiO2 of 30%. He is in a better mood today. Chest xray reveals similar bibasilar airspace opacities which may represent atelectasis vs. infiltrates. Stable support lines and tubes. Sputum culture reveals pseudomonas aeurginosa. He continues on the IV avycaz. 07/23/2024 Patient is evaluated today in follow up remains in the ICU. Patient had respiratory distress today requiring bagging with concern for mucous plugging. Chest xray reviewed with findings of low lung volumes with stable support lines and tubes. No significant change from prior. Patient has been transitioned to IV zerbaxa as the pseudomonas culture now shows resistance to the avycaz. WBC 4.52, hgb 8.1, sodium 137, potassium 3.8, BUN 17, creatinine 0.34. Magnesium 1.9. 07/24/2024 Patient is evaluated today in the ICU. He is currently on CPAP. He is awake alert oriented. Still with some scattered wheezing however lung sounds improved from yesterday. Chest xray reveals development of left perihilar opacities concerning for pneumonia. Stable support lines and tubes. White blood cell count 4.15, hgb 8.3, BUN 16, creatinine 0.34. Magnesium 1.8. 07/25/2024 Patient is evaluated today in the intensive care unit. He remains on CPAP. He is awake alert oriented. He is asking for speech therapy consultation as he wants to trial eating. Unable to do so currently. Chest xray reveals persistent low lung volumes with central vascular congestion and left perihilar acute infiltrate and or atelectasis. White blood cell count 4.43, hemoglobin 8.8, sodium 133, BUN of 13 creatinine 0.38 magnesium 1.7. 07/26/2024 Patient evaluated today in follow up remains in the ICU. He is awake alert oriented. He is currently on CPAP. Remains on IV zerbaxa. Sodium 136, potassium 3.7, BUN 14, creatinine 0.32, magnesium 1.8. 07/27/2024 Patient evaluated today in follow up in the ICU. Patient currently AO x 4. Tolerating the trach collar for the last 24 hours. Patient to completed 7 days total of IV zerbaxa. If [facility] able to take him while he completes this he can discharge when cleared by consultations. Otherwise he will complete the 7 days total while in the hospital and DC to [facility]. REVIEW OF SYSTEMS: CONSTITUTIONAL: No fever, no malaise, no fatigue. HEENT: No recent visual problems or hearing problems. Denied any sore throat. CARDIOVASCULAR: No chest pain, orthopnea, PND, no palpitations, no syncope. PULMONARY: Reports shortness of breath and increased secretions GASTROINTESTINAL: No diarrhea, no nausea, no vomiting, no abdominal pain. NEUROLOGICAL: No headaches, no weakness, no numbness. PHYSICAL EXAMINATION: GENERAL: The patient is alert and oriented x3, not in any acute distress. Well developed, well nourished. HEENT: Pupils are round and equally reacting to light. EOMI. No scleral icterus. No conjunctival pallor. Normocephalic, atraumatic. No pharyngeal erythema. No thyromegaly. Trach in place. On the ventilator. CARDIOVASCULAR: S1 and S2 present. No murmurs, rubs, or gallops. PULMONARY: Chest is clear to auscultation, no wheezing or crackles. ABDOMEN: Soft, nontender, nondistended, normoactive bowel sounds. No palpable organomegaly. Ileostomy in place and functioning with liquid stools. MUSCULOSKELETAL: No joint swelling or deformity. EXTREMITIES: No cyanosis, clubbing, or pedal edema. Right BKA. NEUROLOGICAL: Gross neurological examination did not reveal any focal deficits. Contractures of hands bilaterally. SKIN: No rashes. Assessment and Plan - Acute on chronic hypoxemic and hypercapnic respiratory failure, mainly secondary to mucous plugging. Weaned from the mechanical ventilator to the CPAP. - Prolonged hospital stay and vent dependency - Hypotension with concern for sepsis - Urinary tract infection, POA. Negative urine culture. - Pseudomonas pneumonia history likely a colonizer; repeat sputum pending - Crohn's disease with ileostomy in the past patient is presently on TPN - Right sided otitis media resolved - Tracheobronchomalacia - CVA TIA - History of DVT - Chronic medical debility with contractures of hands bilaterally - Hx of right BKA GI prophylaxis DVT prophylaxis Plan Resume home medications Continue routine trach care with suctioning PRN Continue TPN Ileostomy functioning Patient has been placed back on the mechanical ventilator due to mucous plugging and respiratory distress Patient had evidence of continued mucous plugging. He is currently tolerating the trach collar for the last 24 hours. Continue bronchodilators ID on consultation and patient has now been transitioned to IV zerbaxa with ID recommending 7 days of therapy. Urine culture negative and blood culture negative so far Patient is status post 3L of normal saline and will continue at normal saline 75 mls/hr Pulmonary critical care recommended tertiary care center [facility]. Social work on for discharge planning. [facility] Monitor electrolyes and renal function The impression and plan of care has been dictated by Coral Medina, Nurse Practitioner as directed. Dr. Mo MD I have performed a history and physical examination and medical decision making of this patient, discussed the same with the dictator, and agree with the dictators assessment and plan as written, documented as a scribe. Based on total visit time, I have performed more than 50% of this visit. Objective - Vital Signs Vital signs: Vital Signs Temp 98.2 F 07/27/24 16:00 Pulse 89 07/27/24 16:30 Resp 25 H 07/27/24 16:00 BP 91/48 07/26/24 01:00 Pulse Ox 100 07/27/24 16:35 FiO2 28 07/27/24 16:35 Intake & Output 07/26/24 07/27/24 07/27/24 18:59 06:59 18:59 Intake Total 1795 3003.5 1475 Output Total 2585 3615 1525 Balance -790 -611.5 -50 Weight 91.7 kg Intake: IV 1025 1740 845 Ceftazidime/Avibactam 2.5 200 100 gm In Sodium Chloride 0. 9% 100 ml @ 50 mls/hr IVPB Q8H [facility] Rx#: [id number] Mvi, Adult No.4 with Vit 840 70 K 10 ml Trace (Conc-1Ml/ Dose) 1 ml Sodium Chloride 4Meq/ml Vial 64 meq Potassium Chloride 10 meq Calcium Gluconate 1 gm Magnesium Sulfate gm 1 .25 gm Sodium Phosphate 21 mmol Potassium Acetate 24 meq In Amino Acids 5 %/Dextrose 20 % 1,000 ml @ 70 mls/hr IV .BY DURATION [facility] Rx#: [id number] Sodium Chloride 0.9% 1, 825 900 675 000 ml @ 75 mls/hr IV . [id number] [facility] Rx#:[id number] Intake, IV Titration 1263.5 Amount Ceftolozane/Tazobactam 3 100 gm In Sodium Chloride 0.9 % 100 ml @ 100 mls/hr IV Q8HR [facility] Rx#:[id number] Magnesium Sulfate-D5w Pmx 100 1 gm In Dextrose/Water 1 100ml.bag @ 100 mls/hr IVPB ONCE ONE Rx#: [id number] Mvi, Adult No.4 with Vit 1063.5 K 10 ml Trace (Conc-1Ml/ Dose) 1 ml Sodium Chloride 4Meq/ml Vial 64 meq Potassium Chloride 10 meq Calcium Gluconate 1 gm Magnesium Sulfate gm 1 .25 gm Sodium Phosphate 21 mmol Potassium Acetate 24 meq In Amino Acids 5 %/Dextrose 20 % 1,000 ml @ 70 mls/hr IV .BY DURATION [facility] Rx#: [id number] TPN/PPN 770 630 Mvi, Adult No.4 with Vit 770 K 10 ml Trace (Conc-1Ml/ Dose) 1 ml Sodium Chloride 4Meq/ml Vial 50 meq Potassium Chloride 10 meq Calcium Gluconate 1 gm Magnesium Sulfate gm 1 gm Sodium Phosphate 21 mmol Potassium Acetate 24 meq In Amino Acids 5 %/ Dextrose 20 % 1,000 ml @ 70 mls/hr IV .BY DURATION [facility] Rx#:[id number] Mvi, Adult No.4 with Vit 630 K 10 ml Trace (Conc-1Ml/ Dose) 1 ml Sodium Chloride 4Meq/ml Vial 64 meq Potassium Chloride 10 meq Calcium Gluconate 1 gm Magnesium Sulfate gm 1 .25 gm Sodium Phosphate 21 mmol Potassium Acetate 24 meq In Amino Acids 5 %/Dextrose 20 % 1,000 ml @ 70 mls/hr IV .BY DURATION [facility] Rx#: [id number] Output: Urine 2135 1940 1525 Stool 450 1675 Other: Voiding Method Indwelling Catheter Indwelling Catheter Indwelling Catheter ABP, PAP, CO, CI - Last Documented Arterial Blood Pressure 124/54 - Labs CBC & Chem 7: 07/27/24 04:30 07/27/24 04:30 Labs: Abnormal Lab Results - Last 24 Hours (Table) 07/26/24 07/27/24 07/27/24 Range/Units 18:11 00:14 04:30 RBC (4.40-5.60) 10*6/uL Hgb (13.0-17.0) g/dL Hct (39.6-50.0) % MCH (27.0-32.0) pg MCHC (32.0-37.0) g/dL Eosinophils # (0.04-0.35) 10*3/uL Creatinine 0.34 L (0.66-1.25) mg/dL Glucose 109 H (74-99) mg/dL POC Glucose (mg/dL) 115 H 115 H (70-110) mg/dL 07/27/24 Range/Units 04:30 RBC 3.92 L (4.40-5.60) 10*6/uL Hgb 9.4 L (13.0-17.0) g/dL Hct 33.4 L (39.6-50.0) % MCH 24.0 L (27.0-32.0) pg MCHC 28.1 L (32.0-37.0) g/dL Eosinophils # 0.36 H (0.04-0.35) 10*3/uL Creatinine (0.66-1.25) mg/dL Glucose (74-99) mg/dL POC Glucose (mg/dL) (70-110) mg/dL Assessment and Plan Time with Patient: Less than 30
[2024-07-27 18:48] LABS: Glucose,Whole Blood 120 mg/dL (70-110)
[2024-07-27] MEDS: NYSTATIN 100,000 UNIT/GM POWD 15 GM TOPICAL SCH (21:35)
[2024-07-28 00:05] LABS: Glucose,Whole Blood 116 mg/dL (70-110)
[2024-07-28 04:14] LABS: ABG Base Excess -1.1 mmol/L; ABG HCO3 26 mmol/L (21-25); ABG Oxygen Saturation 94.6 % (94-97); ABG PCO2 52 mmHg (35-45); ABG PO2 75 mmHg (83-108); ABG TCO2 27 mmol/L (19-24)
[2024-07-28 04:19] LABS: Allen Test Performed? No
[2024-07-28 04:25] LABS: HCT 34.3 % (39.6-50.0); HGB 9.9 g/dL (13.0-17.0); MCHC 28.9 g/dL (32.0-37.0); MCV 86.6 fL (80.0-97.0); Platelet Count 215 10*3/uL (140-440); RBC 3.96 10*6/uL (4.40-5.60); RDW 16.7 % (11.5-14.5); WBC 6.74 10*3/uL (4.50-10.00)
[2024-07-28 04:39] LABS: African American GFR (CKD) >90 (>60 ml/min/1.73 sqM); Anion Gap 8 mmol/L; Blood Urea Nitrogen 14 mg/dL (9-20); Carbon Dioxide 23 mmol/L (22-30); Chloride 107 mmol/L (98-107); Glucose 121 mg/dL (74-99); Magnesium 1.8 mg/dL (1.6-2.3); Non-African American GFR(CKD) >90 (>60 ml/min/1.73 sqM); Phosphorus 3.3 mg/dL (2.5-4.5); Potassium 4.1 mmol/L (3.5-5.1); Sodium 138 mmol/L (137-145)
[2024-07-28] MEDS ORDERED: Magnesium Replacement Protocol 1 EACH MISC MISCELLANE PRN (05:17)
[2024-07-28] MEDS: MAGNESIUM SULFATE-D5W PMX 1 GM in DEXTROSE/WATER 1 100ML.BAG IVPB ONE (05:53)
--- NOTE | 2024-07-28 08:13 | XR ---
EXAMINATION TYPE: XR chest 1V portable DATE OF EXAM: 07/28/2024 5:40 AM COMPARISON: 07/27/2024 CLINICAL INDICATION: Male, 49 years old with history of mechanically ventilated, ICU follow-up FINDINGS: Tracheostomy cannula is in place. Left sided CVC tip near the cavoatrial junction. Low lung volumes. Heart borderline enlarged. Diffuse interstitial and patchy opacities persist. IMPRESSION: Similar hypoventilatory changes along with diffuse interstitial and bilateral patchy opacities. [facility], Workstation: [id number], 07/28/2024 8:11 AM
--- NOTE | 2024-07-28 10:19 | P.PN ---
Subjective Progress Note Date: 07/28/24 On 07/27/2024, the patient has been on a 28% trach collar for the past 24 hours. The patient was taken off the mechanical ventilator yesterday. Chest x-ray from today shows smaller lung volumes, some atelectatic changes lung base bilaterally along with that there is mild pulm vessel congestion and patchy left more than right bibasilar opacities related to atelectasis. Sputum samples positive for Pseudomonas aeruginosa and the patient is currently on ceftolozane/tazobactam. Patient is afebrile. The patient is on TPN for nutritional support. The patient ileostomy output was noted and remains quite high. Urine output is over 325 cc an hour. Fluid balance is -1.4 L over the past 24 hours and the patient has a #6 XLT Shiley tracheostomy tube in place. Arousable, able to communicate, profoundly weak and chronically debilitated. Blood work from today shows a white cell count of 6.9, hemoglobin 9.4, platelet of 200, BUN 50 with a creatinine of 0.34 and a sodium levels at 138 and a potassium level is at 4.1. On 07/28/2024, the patient is being seen for a follow-up. Earlier this morning, he complained of some increased shortness of breath and based on that the patient was placed back on a mechanical ventilator and is currently on a pressure support of 10 and a PEEP of 5 with an FiO2 of 45%. Blood gas showed a pH of 7.3 with a pCO2 of 52 and pO2 of 75. Chest x-ray findings are unchanged and the patient has some limited infiltration and atelectasis in the lung base bilaterally. Respiratory secretions are scant. He is having increased coughing. He remains on TPN for additional support rate of 70. He is also on normal saline at rate of 75 cc an hour. Ileostomy output is 1 L. This was obtained over the past 12 hours. Fluid balance is -1.4 L over the past 24 hours. Remains profoundly weak. Awake and alert and communicating. The white cell count at 6.7 with a hemoglobin 9.5 and a platelet count of 250. BUN is 14 with a creatinine of 0.3. Sodium is at 138 and a potassium level is at 4.1. Objective - Vital Signs Vital signs: Vital Signs Temp 98.9 F 07/28/24 04:00 Pulse 73 07/28/24 06:00 Resp 19 07/28/24 06:00 BP 91/48 07/26/24 01:00 Pulse Ox 96 07/28/24 06:00 FiO2 25 07/28/24 06:00 Intake & Output 07/27/24 07/28/24 07/28/24 18:59 06:59 18:59 Intake Total 2973.5 1765 Output Total 1850 2420 Balance 1123.5 -655 Weight 90.5 kg Intake: IV 1070 750 Ceftazidime/Avibactam 2.5 100 gm In Sodium Chloride 0. 9% 100 ml @ 50 mls/hr IVPB Q8H [facility] Rx#: [id number] Mvi, Adult No.4 with Vit 70 K 10 ml Trace (Conc-1Ml/ Dose) 1 ml Sodium Chloride 4Meq/ml Vial 64 meq Potassium Chloride 10 meq Calcium Gluconate 1 gm Magnesium Sulfate gm 1 .25 gm Sodium Phosphate 21 mmol Potassium Acetate 24 meq In Amino Acids 5 %/Dextrose 20 % 1,000 ml @ 70 mls/hr IV .BY DURATION [facility] Rx#: [id number] Sodium Chloride 0.9% 1, 900 750 000 ml @ 75 mls/hr IV . [id number] [facility] Rx#:[id number] Intake, IV Titration 1063.5 100 Amount Magnesium Sulfate-D5w Pmx 100 1 gm In Dextrose/Water 1 100ml.bag @ 100 mls/hr IVPB ONCE ONE Rx#: [id number] Mvi, Adult No.4 with Vit 1063.5 K 10 ml Trace (Conc-1Ml/ Dose) 1 ml Sodium Chloride 4Meq/ml Vial 64 meq Potassium Chloride 10 meq Calcium Gluconate 1 gm Magnesium Sulfate gm 1 .25 gm Sodium Phosphate 21 mmol Potassium Acetate 24 meq In Amino Acids 5 %/Dextrose 20 % 1,000 ml @ 70 mls/hr IV .BY DURATION [facility] Rx#: [id number] TPN/PPN 840 915 Mvi, Adult No.4 with Vit 840 840 K 10 ml Trace (Conc-1Ml/ Dose) 1 ml Sodium Chloride 4Meq/ml Vial 64 meq Potassium Chloride 10 meq Calcium Gluconate 1 gm Magnesium Sulfate gm 1 .25 gm Sodium Phosphate 21 mmol Potassium Acetate 24 meq In Amino Acids 5 %/Dextrose 20 % 1,000 ml @ 70 mls/hr IV .BY DURATION [facility] Rx#: [id number] Sodium Chloride 0.9% 1, 75 000 ml @ 75 mls/hr IV . [id number] [facility] Rx#:[id number] Output: Urine 1850 920 Stool 1500 Other: Voiding Method Indwelling Catheter Indwelling Catheter ABP, PAP, CO, CI - Last Documented Arterial Blood Pressure 120/59 - Exam GENERAL EXAM: Awake, alert 49-year-old male patient, on mechanical ventilator with a PSV of 10 and a PEEP of 5,, comfortable, awake and communicating. HEAD: Normocephalic. EYES: Normal reaction of pupils, equal size. NOSE: Clear with pink turbinates. THROAT: Tracheostomy tube secured in place. No erythema or exudates. NECK: No masses, no JVD. CHEST: No chest wall deformity. LUNGS: Equal air entry with coarse rhonchi bilaterally. CVS: S1 and S2 normal with no audible murmur, regular rhythm. ABDOMEN: Enterocutaneous fistula over the abdominal wall. No hepatosplenomegaly, normal bowel sounds. SPINE: No scoliosis or deformity SKIN: No rashes CENTRAL NERVOUS SYSTEM: No focal deficits, tone is normal in all 4 extremities. EXTREMITIES: Extensive muscle atrophy. Contractures. There is no peripheral e tiffanie. No clubbing, no cyanosis. Peripheral pulses are intact. - Labs CBC & Chem 7: 07/28/24 03:50 07/28/24 03:50 Labs: Abnormal Lab Results - Last 24 Hours (Table) 07/27/24 07/28/24 07/28/24 Range/Units 18:47 00:04 03:50 RBC (4.40-5.60) 10*6/uL Hgb (13.0-17.0) g/dL Hct (39.6-50.0) % MCH (27.0-32.0) pg MCHC (32.0-37.0) g/dL ABG pH (7.35-7.45) ABG pCO2 (35-45) mmHg ABG pO2 (83-108) mmHg ABG HCO3 (21-25) mmol/L ABG Total CO2 (19-24) mmol/L Hemoglobin (13.0-17.5) gm/dL Creatinine 0.31 L (0.66-1.25) mg/dL Glucose 121 H (74-99) mg/dL POC Glucose (mg/dL) 120 H 116 H (70-110) mg/dL 07/28/24 07/28/24 Range/Units 03:50 04:12 RBC 3.96 L (4.40-5.60) 10*6/uL Hgb 9.9 L (13.0-17.0) g/dL Hct 34.3 L (39.6-50.0) % MCH 25.0 L (27.0-32.0) pg MCHC 28.9 L (32.0-37.0) g/dL ABG pH 7.30 L (7.35-7.45) ABG pCO2 52 H (35-45) mmHg ABG pO2 75 L (83-108) mmHg ABG HCO3 26 H (21-25) mmol/L ABG Total CO2 27 H (19-24) mmol/L Hemoglobin 9.7 L (13.0-17.5) gm/dL Creatinine (0.66-1.25) mg/dL Glucose (74-99) mg/dL POC Glucose (mg/dL) (70-110) mg/dL Assessment and Plan Plan: Acute on chronic hypoxemic and hypercapnic respiratory failure, mainly secondary to recurrent mucous plugging. The patient has had multiple bronchoscopies with BAL with the most recent July 07, 2024. The culture at that time was positive for Pseudomonas aeruginosa and the repeat cultures from the sputum on 07/20/2024 still showing Pseudomonas aeruginosa and a chest x-ray from 07/27/2024 showing some atelectatic changes in lung bases bilaterally. The patient remains on ceftolozane tazobactam. Afebrile. No significant leukocytosis. Respiratory secretions are scant and the patient is currently on a PSV mode of mechanical ventilator with a PSV of 10 and a PEEP of 5 and an FiO2 of 5%. Blood gas is showing a mild component of respiratory acidosis. The patient has profound neuromuscular weakness, contributing to the respiratory failure. Respiratory secretions are scant. 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 History of sepsis, secondary to pneumonia Crohn's disease, with previous bowel perforation, status post colectomy and diverting ileostomy Tracheobronchomalacia History of DVT History of CVA/TIA Right below the knee amputation History of asystole/cardiac arrest, 2021 Plan: Keep the patient on PSV mode on mechanical ventilator. In my opinion, the patient will likely need a long-term vent. She has proven himself that he cannot come off the mechanical ventilator and on life he has to be placed back on the mechanical ventilator due to ongoing respiratory distress and neuromu scular weakness. He will need a home ventilator versus a long-term facility with vent support. Remains on TPN and lipids for nutritional support Remains on therapeutic Lovenox Continue bronchodilators Continue Zerbaxa Continue frequent suctioning as necessary Remains on scopolamine patch We will continue to follow Working with case management regarding placement issues as the patient has significant social barriers for discharge Critical care evaluation that was done at 33 minutes. Time with Patient: Greater than 30
[2024-07-28 11:39] VITALS: BMI 30.3
[2024-07-28 11:42] LABS: Glucose,Whole Blood 76 mg/dL (70-110)
--- NOTE | 2024-07-28 15:06 | P.PN ---
Subjective Progress Note Date: 07/27/24 Principal diagnosis: Reason for follow-up is sepsis and pneumonia Patient is a 49-year-old male with multiple comorbidities including Crohn's disease status post colectomy diverting ileostomy tracheobronchomalacia CVA TIA cardiac arrest and history of recurrent pneumonias secondary to mucous plugging patient was recently discharged from this facility has been brought back to the hospital concerning for increasing shortness of breath and hypoxemia, patient did have worsening respiratory status requiring intubation and admission to the ICU subsequently transition to trach collar on 07/26/2024 On today's evaluation that is 07/27/2024,the patient remains to be afebrile, patient is on trach collar 28% supplemental oxygen and denies any shortness of breath no chest pain or any worsening cough.Patient denies having any nausea or vomiting, no abdominal pain. Patient white count 6.98, creatinine 0.34 Objective - Vital Signs Vital signs: Vital Signs Temp 98.1 F 07/27/24 04:00 Pulse 70 07/27/24 07:00 Resp 17 07/27/24 07:00 BP 91/48 07/26/24 01:00 Pulse Ox 100 07/27/24 07:00 FiO2 28 07/27/24 04:08 Intake & Output 07/26/24 07/27/24 07/27/24 18:59 06:59 18:59 Intake Total 1795 3003.5 145 Output Total 2585 3615 150 Balance -790 -611.5 -5 Weight 91.7 kg Intake: IV 1025 1740 145 Ceftazidime/Avibactam 2.5 200 gm In Sodium Chloride 0. 9% 100 ml @ 50 mls/hr IVPB Q8H [facility] Rx#: [id number] Mvi, Adult No.4 with Vit 840 70 K 10 ml Trace (Conc-1Ml/ Dose) 1 ml Sodium Chloride 4Meq/ml Vial 64 meq Potassium Chloride 10 meq Calcium Gluconate 1 gm Magnesium Sulfate gm 1 .25 gm Sodium Phosphate 21 mmol Potassium Acetate 24 meq In Amino Acids 5 %/Dextrose 20 % 1,000 ml @ 70 mls/hr IV .BY DURATION [facility] Rx#: [id number] Sodium Chloride 0.9% 1, 825 900 75 000 ml @ 75 mls/hr IV . [id number] [facility] Rx#:[id number] Intake, IV Titration 1263.5 Amount Ceftolozane/Tazobactam 3 100 gm In Sodium Chloride 0.9 % 100 ml @ 100 mls/hr IV Q8HR [facility] Rx#:[id number] Magnesium Sulfate-D5w Pmx 100 1 gm In Dextrose/Water 1 100ml.bag @ 100 mls/hr IVPB ONCE ONE Rx#: [id number] Mvi, Adult No.4 with Vit 1063.5 K 10 ml Trace (Conc-1Ml/ Dose) 1 ml Sodium Chloride 4Meq/ml Vial 64 meq Potassium Chloride 10 meq Calcium Gluconate 1 gm Magnesium Sulfate gm 1 .25 gm Sodium Phosphate 21 mmol Potassium Acetate 24 meq In Amino Acids 5 %/Dextrose 20 % 1,000 ml @ 70 mls/hr IV .BY DURATION [facility] Rx#: [id number] TPN/PPN 770 Mvi, Adult No.4 with Vit 770 K 10 ml Trace (Conc-1Ml/ Dose) 1 ml Sodium Chloride 4Meq/ml Vial 50 meq Potassium Chloride 10 meq Calcium Gluconate 1 gm Magnesium Sulfate gm 1 gm Sodium Phosphate 21 mmol Potassium Acetate 24 meq In Amino Acids 5 %/ Dextrose 20 % 1,000 ml @ 70 mls/hr IV .BY DURATION [facility] Rx#:[id number] Output: Urine 2135 1940 150 Stool 450 1675 Other: Voiding Method Indwelling Catheter Indwelling Catheter ABP, PAP, CO, CI - Last Documented Arterial Blood Pressure 122/57 - Exam GENERAL DESCRIPTION: Middle-age male lying in bed in no distress RESPIRATORY SYSTEM: Unlabored breathing , decreased breath sounds at bases HEART: S1 S2 regular rate and rhythm , ABDOMEN: Soft , no tenderness EXTREMITIES: Some swelling to the leg but no redness - Labs CBC & Chem 7: 07/28/24 03:50 07/28/24 03:50 Labs: Abnormal Lab Results - Last 24 Hours (Table) 07/26/24 07/27/24 07/27/24 Range/Units 18:11 00:14 04:30 RBC (4.40-5.60) 10*6/uL Hgb (13.0-17.0) g/dL Hct (39.6-50.0) % MCH (27.0-32.0) pg MCHC (32.0-37.0) g/dL Eosinophils # (0.04-0.35) 10*3/uL Creatinine 0.34 L (0.66-1.25) mg/dL Glucose 109 H (74-99) mg/dL POC Glucose (mg/dL) 115 H 115 H (70-110) mg/dL 07/27/24 Range/Units 04:30 RBC 3.92 L (4.40-5.60) 10*6/uL Hgb 9.4 L (13.0-17.0) g/dL Hct 33.4 L (39.6-50.0) % MCH 24.0 L (27.0-32.0) pg MCHC 28.1 L (32.0-37.0) g/dL Eosinophils # 0.36 H (0.04-0.35) 10*3/uL Creatinine (0.66-1.25) mg/dL Glucose (74-99) mg/dL POC Glucose (mg/dL) (70-110) mg/dL Assessment and Plan (1) Pneumonia Current Visit: No Status: Acute Code(s): J18.9 - PNEUMONIA, UNSPECIFIED ORGANISM SNOMED Code(s): 880455167 (2) Sepsis Current Visit: No Status: Acute Code(s): A41.9 - SEPSIS, UNSPECIFIED ORGANISM SNOMED Code(s): 36078536 Plan: 1patient with sepsis in this patient who did have fever tachycardia elevated white count meeting currently for SIRS source is likely pneumonia etiology could be mucous plugging and inadequate suction in the outpatient setting plus minus a catheter associated as a patient also significantly positive UA. 2sputum culture has been requested which are currently growing Pseudomonas sensitivities pending urine culture have been negative blood culture so far negative 3patient sputum positive for Pseudomonas now resistant to Avycaz. 4patient is afebrile white count has been normal 5patient is currently being treated with Zerbaxa to finish 7 to 10-day course of antibiotics and supportive care Dictation was produced using [employer] dictation software. please excuse any grammatical, word or spelling errors. Time with Patient: Less than 30
--- NOTE | 2024-07-28 15:07 | P.PN ---
Subjective Progress Note Date: 07/28/24 Principal diagnosis: Reason for follow-up is sepsis and pneumonia Patient is a 49-year-old male with multiple comorbidities including Crohn's disease status post colectomy diverting ileostomy tracheobronchomalacia CVA TIA cardiac arrest and history of recurrent pneumonias secondary to mucous plugging patient was recently discharged from this facility has been brought back to the hospital concerning for increasing shortness of breath and hypoxemia, patient did have worsening respiratory status requiring intubation and admission to the ICU subsequently transition to trach collar on 07/26/2024 On today's evaluation that is 07/28/2024, the patient continues to be afebrile, the patient is back on the vent currently on 28% FiO2 patient is hemodynamically stable not requiring any pressor support no significant purulent secretion through the ET or any other changes reported. Patient white count 6.74 creatinine 0.31 Objective - Vital Signs Vital signs: Vital Signs Temp 98.2 F 07/28/24 12:00 Pulse 82 07/28/24 12:09 Resp 22 07/28/24 12:00 BP 91/48 07/26/24 01:00 Pulse Ox 97 07/28/24 12:00 FiO2 25 07/28/24 12:00 Intake & Output 07/27/24 07/28/24 07/28/24 18:59 06:59 18:59 Intake Total 2973.5 1765 809 Output Total 1850 2420 455 Balance 1123.5 -655 354 Weight 90.5 kg 90.5 kg Intake: IV 1070 750 375 Ceftazidime/Avibactam 2.5 100 gm In Sodium Chloride 0. 9% 100 ml @ 50 mls/hr IVPB Q8H [facility] Rx#: [id number] Mvi, Adult No.4 with Vit 70 K 10 ml Trace (Conc-1Ml/ Dose) 1 ml Sodium Chloride 4Meq/ml Vial 64 meq Potassium Chloride 10 meq Calcium Gluconate 1 gm Magnesium Sulfate gm 1 .25 gm Sodium Phosphate 21 mmol Potassium Acetate 24 meq In Amino Acids 5 %/Dextrose 20 % 1,000 ml @ 70 mls/hr IV .BY DURATION [facility] Rx#: [id number] Sodium Chloride 0.9% 1, 900 750 375 000 ml @ 75 mls/hr IV . [id number] [facility] Rx#:[id number] Intake, IV Titration 1063.5 100 84 Amount Fat Emulsion 20% 250 ml 84 In Empty Bag 1 bag @ 21 mls/hr IV Q72H [facility] Rx#: [id number] Magnesium Sulfate-D5w Pmx 100 1 gm In Dextrose/Water 1 100ml.bag @ 100 mls/hr IVPB ONCE ONE Rx#: [id number] Mvi, Adult No.4 with Vit 1063.5 K 10 ml Trace (Conc-1Ml/ Dose) 1 ml Sodium Chloride 4Meq/ml Vial 64 meq Potassium Chloride 10 meq Calcium Gluconate 1 gm Magnesium Sulfate gm 1 .25 gm Sodium Phosphate 21 mmol Potassium Acetate 24 meq In Amino Acids 5 %/Dextrose 20 % 1,000 ml @ 70 mls/hr IV .BY DURATION [facility] Rx#: [id number] TPN/PPN 840 915 350 Mvi, Adult No.4 with Vit 840 840 350 K 10 ml Trace (Conc-1Ml/ Dose) 1 ml Sodium Chloride 4Meq/ml Vial 64 meq Potassium Chloride 10 meq Calcium Gluconate 1 gm Magnesium Sulfate gm 1 .25 gm Sodium Phosphate 21 mmol Potassium Acetate 24 meq In Amino Acids 5 %/Dextrose 20 % 1,000 ml @ 70 mls/hr IV .BY DURATION [facility] Rx#: [id number] Sodium Chloride 0.9% 1, 75 000 ml @ 75 mls/hr IV . [id number] [facility] Rx#:[id number] Output: Urine 1850 920 455 Stool 1500 Other: Voiding Method Indwelling Catheter Indwelling Catheter Indwelling Catheter ABP, PAP, CO, CI - Last Documented Arterial Blood Pressure 113/53 - Exam GENERAL DESCRIPTION: Middle-age male lying in bed in no distress RESPIRATORY SYSTEM: Unlabored breathing , decreased breath sounds at bases HEART: S1 S2 regular rate and rhythm , ABDOMEN: Soft , no tenderness EXTREMITIES: Some swelling to the leg but no redness - Labs CBC & Chem 7: 07/28/24 03:50 07/28/24 03:50 Labs: Abnormal Lab Results - Last 24 Hours (Table) 07/27/24 07/28/24 07/28/24 Range/Units 18:47 00:04 03:50 RBC (4.40-5.60) 10*6/uL Hgb (13.0-17.0) g/dL Hct (39.6-50.0) % MCH (27.0-32.0) pg MCHC (32.0-37.0) g/dL ABG pH (7.35-7.45) ABG pCO2 (35-45) mmHg ABG pO2 (83-108) mmHg ABG HCO3 (21-25) mmol/L ABG Total CO2 (19-24) mmol/L Hemoglobin (13.0-17.5) gm/dL Creatinine 0.31 L (0.66-1.25) mg/dL Glucose 121 H (74-99) mg/dL POC Glucose (mg/dL) 120 H 116 H (70-110) mg/dL 07/28/24 07/28/24 Range/Units 03:50 04:12 RBC 3.96 L (4.40-5.60) 10*6/uL Hgb 9.9 L (13.0-17.0) g/dL Hct 34.3 L (39.6-50.0) % MCH 25.0 L (27.0-32.0) pg MCHC 28.9 L (32.0-37.0) g/dL ABG pH 7.30 L (7.35-7.45) ABG pCO2 52 H (35-45) mmHg ABG pO2 75 L (83-108) mmHg ABG HCO3 26 H (21-25) mmol/L ABG Total CO2 27 H (19-24) mmol/L Hemoglobin 9.7 L (13.0-17.5) gm/dL Creatinine (0.66-1.25) mg/dL Glucose (74-99) mg/dL POC Glucose (mg/dL) (70-110) mg/dL Assessment and Plan (1) Pneumonia Current Visit: No Status: Acute Code(s): J18.9 - PNEUMONIA, UNSPECIFIED ORGANISM SNOMED Code(s): 167703773 (2) Sepsis Current Visit: No Status: Acute Code(s): A41.9 - SEPSIS, UNSPECIFIED ORGANISM SNOMED Code(s): 70103096 Plan: 1patient with sepsis in this patient who did have fever tachycardia elevated white count meeting currently for SIRS source is likely pneumonia etiology could be mucous plugging and inadequate suction in the outpatient setting plus minus a catheter associated as a patient also significantly positive UA. 2sputum culture has been requested which are currently growing Pseudomonas sensitivities pending urine culture have been negative blood culture so far negative 3patient sputum positive for Pseudomonas now resistant to Avycaz. 4patient is afebrile white count has been normal 5patient is currently being treated with Zerbaxa to finish 7 to 10-day course depending upon his clinical response may benefit from exchange of his trach if not that invasive discussed with the nursing staff Dictation was produced using [employer] dictation software. please excuse any grammatical, word or spelling errors. Time with Patient: Less than 30
[2024-07-28 18:12] LABS: Glucose,Whole Blood 86 mg/dL (70-110)
[2024-07-28 23:27] LABS: Glucose,Whole Blood 104 mg/dL (70-110)
[2024-07-28] MEDS ORDERED: 1: MVI, ADULT NO.4 WITH VIT K 10 ML, TRACE (CONC-1ML/DOSE) 1 ML, SODIUM CHLORIDE 4MEQ/ML IV SCH (23:30)
[2024-07-29 03:22] LABS: Basophils # (A) 0.03 10*3/uL (0.00-0.10); Basophils % (A) 0.5 %; Eosinophils # (A) 0.27 10*3/uL (0.04-0.35); Eosinophils % (A) 4.9 %; HCT 33.7 % (39.6-50.0); HGB 9.6 g/dL (13.0-17.0); Lymphocytes # (A) 1.49 10*3/uL (0.90-5.00); MCH 24.2 pg (27.0-32.0); MCHC 28.5 g/dL (32.0-37.0); MCV 85.1 fL (80.0-97.0); Mean Platelet Volume 11.3 fL (9.5-12.2); Monocytes # (A) 0.42 10*3/uL (0.20-1.00); Monocytes % (A) 7.6 %; Neutrophils # (A) 3.31 10*3/uL (1.80-7.70); Platelet Count 202 10*3/uL (140-440); RBC 3.96 10*6/uL (4.40-5.60); RDW 16.7 % (11.5-14.5); WBC 5.52 10*3/uL (4.50-10.00)
[2024-07-29 03:45] LABS: African American GFR (CKD) >90 (>60 ml/min/1.73 sqM); Anion Gap 7 mmol/L; Blood Urea Nitrogen 12 mg/dL (9-20); Calcium 9.1 mg/dL (8.4-10.2); Carbon Dioxide 24 mmol/L (22-30); Chloride 105 mmol/L (98-107); Glucose 113 mg/dL (74-99); Magnesium 1.7 mg/dL (1.6-2.3); Non-African American GFR(CKD) >90 (>60 ml/min/1.73 sqM); Phosphorus 2.9 mg/dL (2.5-4.5); Potassium 3.6 mmol/L (3.5-5.1); Sodium 136 mmol/L (137-145)
[2024-07-29 05:23] LABS: ABG Base Excess -0.1 mmol/L; ABG HCO3 26 mmol/L (21-25); ABG Oxygen Saturation 97.4 % (94-97); ABG PCO2 48 mmHg (35-45); ABG PH 7.34 (7.35-7.45); ABG PO2 88 mmHg (83-108); ABG TCO2 27 mmol/L (19-24)
[2024-07-29] MEDS: POTASSIUM CHLORIDE 10 MEQ in WATER FOR INJECTION 1 100ML.BAG IVPB SCH (05:27)
[2024-07-29 05:36] LABS: Allen Test Performed? No
[2024-07-29 06:00] LABS: Glucose,Whole Blood 113 mg/dL (70-110)
--- NOTE | 2024-07-29 08:36 | XR ---
EXAMINATION TYPE: XR chest 1V portable DATE OF EXAM: 07/29/2024 4:15 AM COMPARISON: 07/28/2024 CLINICAL INDICATION: Male, 49 years old with history of mechanical ventilation, , FINDINGS: Tracheostomy cannula. Left CVC tip within the upper right atrium. Surgical clips base of the right ne ck. Low lung volumes. Heart borderline in size. Interstitial densities persist on the left with some improvement on the right. Patchy retrocardiac opacity remains. IMPRESSION: Interstitial densities persist on the left but with some improvement on the right. Patchy retrocardia c atelectasis and/or consolidation also persists. [facility], Workstation: [id number], 07/29/2024 8:33 AM
[2024-07-29] MEDS: 1: MVI, ADULT NO.4 WITH VIT K 10 ML, TRACE (CONC-1ML/DOSE) 1 ML, SODIUM CHLORIDE 4MEQ/ML IV SCH (09:23)
[2024-07-29] MEDS: MAGNESIUM SULFATE-D5W PMX 1 GM in DEXTROSE/WATER 1 100ML.BAG IVPB ONE (11:16)
--- NOTE | 2024-07-29 12:45 | PN ---
PROGRESS NOTE DATE OF SERVICE: 07/28/2024 HISTORY OF PRESENT ILLNESS: This is a 49-year-old gentleman, who was admitted with multiple problems including respiratory failure was reintubated last night. The patient had prolonged hospital stay previously. Multiple consultants are following the patient closely. The patient's Pseudomonas organism was growing previously. The patient also had Crohn disease and profound immunosuppression. PAST MEDICAL HISTORY: Could not be taken. CURRENT MEDICATIONS: Reviewed. PHYSICAL EXAMINATION: VITAL SIGNS: Pulse is 92, blood pressure n, respirations 25. CHEST: Bilateral scattered rhonchi and crackles. ABDOMEN: Soft. EXTREMITIES: Legs, no edema. No swelling. NEUROLOGIC: Could not be examined. LABORATORY DATA: Chest x-ray reviewed personally showed some infiltrates on the left lower lobe. Otherwise, other labs are hemoglobin 9.9. ABGs noted. ASSESSMENT: 1. Dexlg-iz-xchgdlf hypoxemic and hypercapnic respiratory failure secondary to mucus plugging. 2. History of Pseudomonas pneumonia and aspiration pneumonia. 3. Hypotension. 4. Urinary tract infection. 5. Crohn's disease with ileostomy and significant immunosuppression. 6. Multiple complex medical issues. 7. Pseudomonas aeruginosa pneumonia. RECOMMENDATIONS: 1. Recommend to continue current management and continue with mechanical ventilation. The patient is also on Zerbaxa. As mentioned earlier, the sputum culture shows Pseudomonas aeruginosa. 2. Repeat labs. Closely monitor. Prognosis guarded. Further recommendations to follow. MMODL / IJN: [id number] / MTDD
--- NOTE | 2024-07-29 13:00 | P.PN ---
Subjective Progress Note Date: 07/29/24 On 07/27/2024, the patient has been on a 28% trach collar for the past 24 hours. The patient was taken off the mechanical ventilator yesterday. Chest x-ray from today shows smaller lung volumes, some atelectatic changes lung base bilaterally along with that there is mild pulm vessel congestion and patchy left more than right bibasilar opacities related to atelectasis. Sputum samples positive for Pseudomonas aeruginosa and the patient is currently on ceftolozane/tazobactam. Patient is afebrile. The patient is on TPN for nutritional support. The patient ileostomy output was noted and remains quite high. Urine output is over 325 cc an hour. Fluid balance is -1.4 L over the past 24 hours and the patient has a #6 XLT Shiley tracheostomy tube in place. Arousable, able to communicate, profoundly weak and chronically debilitated. Blood work from today shows a white cell count of 6.9, hemoglobin 9.4, platelet of 200, BUN 50 with a creatinine of 0.34 and a sodium levels at 138 and a potassium level is at 4.1. On 07/28/2024, the patient is being seen for a follow-up. Earlier this morning, he complained of some increased shortness of breath and based on that the patient was placed back on a mechanical ventilator and is currently on a pressure support of 10 and a PEEP of 5 with an FiO2 of 45%. Blood gas showed a pH of 7.3 with a pCO2 of 52 and pO2 of 75. Chest x-ray findings are unchanged and the patient has some limited infiltration and atelectasis in the lung base bilaterally. Respiratory secretions are scant. He is having increased coughing. He remains on TPN for additional support rate of 70. He is also on normal saline at rate of 75 cc an hour. Ileostomy output is 1 L. This was obtained over the past 12 hours. Fluid balance is -1.4 L over the past 24 hours. Remains profoundly weak. Awake and alert and communicating. The white cell count at 6.7 with a hemoglobin 9.5 and a platelet count of 250. BUN is 14 with a creatinine of 0.3. Sodium is at 138 and a potassium level is at 4.1. On 07/29/2024, the patient is back and forth between a 28% T-piece and a PSV mode of mechanical ventilation. This morning, the patient is on a PSV of 10 and a PEEP of 5. Blood gas showed a pH of 7.34 with a PCO2 of 48 and PO2 of 88. The patient is calm and comfortable. Chest x-ray findings are unchanged and the patient remains on ceftolozane/tazobactam per IDs recommendations. No fever no chills. Remains on TPN for nutritional support running at 70 cc an hour. Remai ns on normal saline at 75 cc an hour. Ostomy output has been 500 cc per shift. Hemodynamically stable. Communicating. White cell count of 5.5 with a hemoglobin 9.6 and a platelet count of 202. Sodium is at 136, potassium low at 3.6, BUN is 12 with a creatinine of 0.32. No other significant events overnight. Objective - Vital Signs Vital signs: Vital Signs Temp 98.3 F 07/29/24 12:00 Pulse 88 07/29/24 12:48 Resp 24 07/29/24 12:00 BP 91/48 07/26/24 01:00 Pulse Ox 100 07/29/24 12:00 FiO2 28 07/29/24 12:00 Intake & Output 07/28/24 07/29/24 07/29/24 18:59 06:59 18:59 Intake Total 1609 1670 1070 Output Total 2120 1700 925 Balance -511 -30 145 Weight 90.5 kg Intake: IV 825 900 450 Sodium Chloride 0.9% 1, 825 900 450 000 ml @ 75 mls/hr IV . [id number] [facility] Rx#:[id number] Intake, IV Titration 84 200 Amount Fat Emulsion 20% 250 ml 84 In Empty Bag 1 bag @ 21 mls/hr IV Q72H [facility] Rx#: [id number] Potassium Chloride 10 meq 200 In Water For Injection 1 100ml.bag @ 100 mls/hr IVPB Q1H [facility] Rx#: [id number] TPN/PPN 700 770 420 Mvi, Adult No.4 with Vit 700 770 420 K 10 ml Trace (Conc-1Ml/ Dose) 1 ml Sodium Chloride 4Meq/ml Vial 64 meq Potassium Chloride 10 meq Calcium Gluconate 1 gm Magnesium Sulfate gm 1 .25 gm Sodium Phosphate 21 mmol Potassium Acetate 24 meq In Amino Acids 5 %/Dextrose 20 % 1,000 ml @ 70 mls/hr IV .BY D[facility]ATION [facility] Rx#: [id number] Output: Urine 870 700 525 Stool 1250 1000 400 Other: Voiding Method Indwelling Catheter Indwelling Catheter Indwelling Catheter ABP, PAP, CO, CI - Last Documented Arterial Blood Pressure 147/64 - Exam GENERAL EXAM: Awake, alert 49-year-old male patient, on mechanical ventilator with a PSV of 10 and a PEEP of 5,, comfortable, awake and communicating. HEAD: Normocephalic. EYES: Normal reaction of pupils, equal size. NOSE: Clear with pink turbinates. THROAT: Tracheostomy tube secured in place. No erythema or exudates. NECK: No masses, no JVD. CHEST: No chest wall deformity. LUNGS: Equal air entry with coarse rhonchi bilaterally. CVS: S1 and S2 normal with no audible murmur, regular rhythm. ABDOMEN: Enterocutaneous fistula over the abdominal wall. No hepatosple nomegaly, normal bowel sounds. SPINE: No scoliosis or deformity SKIN: No rashes CENTRAL NERVOUS SYSTEM: No focal deficits, tone is normal in all 4 extremities. EXTREMITIES: Extensive muscle atrophy. Contractures. There is no peripheral edema. No clubbing, no cyanosis. Peripheral pulses are intact. - Labs CBC & Chem 7: 07/29/24 03:09 07/29/24 03:09 Labs: Abnormal Lab Results - Last 24 Hours (Table) 07/29/24 07/29/24 07/29/24 Range/Units 03:09 03:09 05:21 RBC 3.96 L (4.40-5.60) 10*6/uL Hgb 9.6 L (13.0-17.0) g/dL Hct 33.7 L (39.6-50.0) % MCH 24.2 L (27.0-32.0) pg MCHC 28.5 L (32.0-37.0) g/dL ABG pH 7.34 L (7.35-7.45) ABG pCO2 48 H (35-45) mmHg ABG HCO3 26 H (21-25) mmol/L ABG Total CO2 27 H (19-24) mmol/L ABG O2 Saturation 97.4 H (94-97) % Hemoglobin 10.1 L (13.0-17.5) gm/dL Sodium 136 L (137-145) mmol/L Creatinine 0.32 L (0.66-1.25) mg/dL Glucose 113 H (74-99) mg/dL POC Glucose (mg/dL) (70-110) mg/dL 07/29/24 Range/Units 05:59 RBC (4.40-5.60) 10*6/uL Hgb (13.0-17.0) g/dL Hct (39.6-50.0) % MCH (27.0-32.0) pg MCHC (32.0-37.0) g/dL ABG pH (7.35-7.45) ABG pCO2 (35-45) mmHg ABG HCO3 (21-25) mmol/L ABG Total CO2 (19-24) mmol/L ABG O2 Saturation (94-97) % Hemoglobin (13.0-17.5) gm/dL Sodium (137-145) mmol/L Creatinine (0.66-1.25) mg/dL Glucose (74-99) mg/dL POC Glucose (mg/dL) 113 H (70-110) mg/dL Assessment and Plan Plan: Acute on chronic hypoxemic and hypercapnic respiratory failure, mainly secondary to recurrent mucous plugging. The patient has had multiple bronchoscopies with BAL with the most recent July 07, 2024. The culture at that time was positive for Pseudomonas aeruginosa and the repeat cultures from the sputum on 07/20/2024 still showing Pseudomonas aeruginosa and a chest x-ray from 07/27/2024 showing some atelectatic changes in lung bases bilaterally. The patient remains on ceftolozane tazobactam. Afebrile. No significant leukocytosis. Respiratory secretions are scant and the patient is currently on a PSV mode of mechanical ventilator with a PSV of 10 and a PEEP of 5 and an FiO2 of 5%. Blood gas is showing a mild component of respiratory acidosis. The patient has profound neuromuscular weakness, contributing to the respiratory failure. Respiratory secretions are scant. 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 History of sepsis, secondary to pneumonia Crohn's disease, with previous bowel perforation, status post colectomy and diverting ileostomy Tracheobronchomalacia History of DVT History of CVA/TIA Right below the knee amputation History of asystole/cardiac arrest, 2021 Plan: Will continue alternating between a 28% T-piece and a PSV mode of mechanical ventilation. Recommend switching this patient back to a T-piece and obtaining a follow-up blood gas while off the mechanical ventilator. Chest x-ray findings are unchanged The patient remains on Zerbaxa Remains on TPN and lipids for nutritional support Remains on therapeutic Lovenox Continue bronchodilators Continue Zerbaxa Continue frequent suctioning as necessary Remains on scopolamine patch We will continue to follow Working with case management regarding placement issues as the patient has significant social barriers for discharge Critical care evaluation that was done at 33 minutes. Time with Patient: Greater than 30
[2024-07-29] MEDS: IPRATROPIUM-ALBUTEROL 3 ML NEB INHALATION PRN (23:55)
[2024-07-30 04:42] LABS: HCT 32.1 % (39.6-50.0); HGB 9.4 g/dL (13.0-17.0); MCH 24.9 pg (27.0-32.0); MCHC 29.3 g/dL (32.0-37.0); MCV 85.1 fL (80.0-97.0); Platelet Count 217 10*3/uL (140-440); RBC 3.77 10*6/uL (4.40-5.60); RDW 16.6 % (11.5-14.5); WBC 6.01 10*3/uL (4.50-10.00)
[2024-07-30 05:03] LABS: African American GFR (CKD) >90 (>60 ml/min/1.73 sqM); Anion Gap 4 mmol/L; Blood Urea Nitrogen 14 mg/dL (9-20); Calcium 8.7 mg/dL (8.4-10.2); Carbon Dioxide 25 mmol/L (22-30); Chloride 108 mmol/L (98-107); Glucose 137 mg/dL (74-99); Magnesium 1.8 mg/dL (1.6-2.3); Non-African American GFR(CKD) >90 (>60 ml/min/1.73 sqM); Phosphorus 2.8 mg/dL (2.5-4.5); Potassium 3.8 mmol/L (3.5-5.1); Sodium 137 mmol/L (137-145)
[2024-07-30] MEDS: MAGNESIUM SULFATE-D5W PMX 1 GM in DEXTROSE/WATER 1 100ML.BAG IVPB ONE (05:34)
[2024-07-30 05:57] LABS: ABG Base Excess -0.6 mmol/L; ABG HCO3 25 mmol/L (21-25); ABG Oxygen Saturation 97.4 % (94-97); ABG PCO2 46 mmHg (35-45); ABG PH 7.34 (7.35-7.45); ABG PO2 83 mmHg (83-108); ABG TCO2 27 mmol/L (19-24)
[2024-07-30 06:04] LABS: Allen Test Performed? no
[2024-07-30] MEDS: POTASSIUM CHLORIDE 10 MEQ in WATER FOR INJECTION 1 100ML.BAG IVPB SCH (06:31)
--- NOTE | 2024-07-30 08:30 | XR ---
EXAMINATION TYPE: XR chest 1V portable DATE OF EXAM: 07/30/2024 5:26 AM COMPARISON: 07/29/2024 CLINICAL INDICATION: Male, 49 years old with history of pt intubated, shortness of breath, ICU follow -up FINDINGS: Tracheostomy cannula in place. Left CVC tip near the cavoatrial junction. Surgical clips at the right base of the neck. The lung volumes. Heart remains borderline enlarged. Mild interstitial densities p ersist. Patchy left basilar retrocardiac opacities persist. Possible trace left pleural effusion. IMPRESSION: Similar mild interstitial densities, retrocardiac consolidation, and trace left pleural effusion. [facility], , 07/30/2024 8:28 AM
--- NOTE | 2024-07-30 10:16 | PN ---
PROGRESS NOTE DATE OF SERVICE: 07/29/2024 HISTORY OF PRESENT ILLNESS: This 49-year-old gentleman, who was admitted with acute on chronic hypoxic respiratory failure, is being closely monitored at this time. The most recent chest x-ray showed some improvement. Dr. Uriostegui from Infectious Disease recommending nebulized tobramycin. Blood counts are noted. The patient is monitored in ICU. PAST MEDICAL HISTORY: Could not be taken. REVIEW OF SYSTEMS: Could not be taken. CURRENT MEDICATIONS: Reviewed. PHYSICAL EXAMINATION: VITAL SIGNS: Pulse is 83, blood pressure 159/64, and respirations 20. HEENT: Conjunctivae normal. CARDIOVASCULAR: S1, S2. CHEST: Few scattered rhonchi. ABDOMEN: Soft. NERVOUS SYSTEM: Nonfocal. NECK: Tracheostomy. LABORATORY DATA: Noted. ASSESSMENT: 1. Acute on chronic hypoxic and hypercarbic respiratory failure secondary to mucus plugging. 2. History of Pseudomonas pneumonia and aspiration pneumonia. 3. Hypotension, improved. 4. Urinary tract infection. 5. Crohn disease with ileostomy, significant immunosuppression. 6. Multiple complex medical issues. 7. Pseudomonas aeruginosa pneumonia. RECOMMENDATION: Continue the antibiotics. Otherwise, discharge planning. Continue the bronchodilators. Rest of medications. Repeat labs. Closely monitor. Prognosis extremely guarded. Further recommendation is to follow. MMODL / IJN: [id number] /
--- NOTE | 2024-07-30 11:32 | P.PN ---
Subjective Progress Note Date: 07/30/24 On 07/27/2024, the patient has been on a 28% trach collar for the past 24 hours. The patient was taken off the mechanical ventilator yesterday. Chest x-ray from today shows smaller lung volumes, some atelectatic changes lung base bilaterally along with that there is mild pulm vessel congestion and patchy left more than right bibasilar opacities related to atelectasis. Sputum samples positive for Pseudomonas aeruginosa and the patient is currently on ceftolozane/tazobactam. Patient is afebrile. The patient is on TPN for nutritional support. The patient ileostomy output was noted and remains quite high. Urine output is over 325 cc an hour. Fluid balance is -1.4 L over the past 24 hours and the patient has a #6 XLT Shiley tracheostomy tube in place. Arousable, able to communicate, profoundly weak and chronically debilitated. Blood work from today shows a white cell count of 6.9, hemoglobin 9.4, platelet of 200, BUN 50 with a creatinine of 0.34 and a sodium levels at 138 and a potassium level is at 4.1. On 07/28/2024, the patient is being seen for a follow-up. Earlier this morning, he complained of some increased shortness of breath and based on that the patient was placed back on a mechanical ventilator and is currently on a pressure support of 10 and a PEEP of 5 with an FiO2 of 45%. Blood gas showed a pH of 7.3 with a pCO2 of 52 and pO2 of 75. Chest x-ray findings are unchanged and the patient has some limited infiltration and atelectasis in the lung base bilaterally. Respiratory secretions are scant. He is having increased coughing. He remains on TPN for additional support rate of 70. He is also on normal saline at rate of 75 cc an hour. Ileostomy output is 1 L. This was obtained over the past 12 hours. Fluid balance is -1.4 L over the past 24 hours. Remains profoundly weak. Awake and alert and communicating. The white cell count at 6.7 with a hemoglobin 9.5 and a platelet count of 250. BUN is 14 with a creatinine of 0.3. Sodium is at 138 and a potassium level is at 4.1. On 07/29/2024, the patient is back and forth between a 28% T-piece and a PSV mode of mechanical ventilation. This morning, the patient is on a PSV of 10 and a PEEP of 5. Blood gas showed a pH of 7.34 with a PCO2 of 48 and PO2 of 88. The patient is calm and comfortable. Chest x-ray findings are unchanged and the patient remains on ceftolozane/tazobactam per IDs recommendations. No fever no chills. Remains on TPN for nutritional support running at 70 cc an hour. Remai ns on normal saline at 75 cc an hour. Ostomy output has been 500 cc per shift. Hemodynamically stable. Communicating. White cell count of 5.5 with a hemoglobin 9.6 and a platelet count of 202. Sodium is at 136, potassium low at 3.6, BUN is 12 with a creatinine of 0.32. No other significant events overnight. 07/30/2024, patient is on a pressure support of 10 and a PEEP of 5 and his condition remains unchanged. Continues to alternate between pressure support and a T-piece. Blood gases this morning showed a pH of 7.34 with a [id number] and PO2 of 83. Completing his last dose of Zerbaxa for pseudomonal pneumonia. He is on TPN at rate of 72 cc an hour. Normal saline rate of 75 cc an hour. Ileostomy output was half a liter over the past 8 hours. Hemodynamically stable. Afebrile. Able to communicate. The white cell count is 6 with a hemoglobin 9.4 and platelet count 217. BUN is 40 with a creatinine of 0.3 and a sodium level at 137. No other significant events overnight. Objective - Vital Signs Vital signs: Vital Signs Temp 98.2 F 07/30/24 08:00 Pulse 82 07/30/24 08:00 Resp 21 07/30/24 08:00 BP 91/48 07/26/24 01:00 Pulse Ox 98 07/30/24 08:00 FiO2 25 07/30/24 08:00 Intake & Output 07/29/24 07/30/24 07/30/24 18:59 06:59 18:59 Intake Total 2085 1235 420 Output Total 2059 1265 225 Balance 25 -30 195 Weight 91.2 kg Intake: IV 975 1025 420 Ceftolozane/Tazobactam 3 100 gm In Sodium Chloride 0.9 % 100 ml @ 100 mls/hr IV Q8HR [facility] Rx#:[id number] Magnesium Sulfate-D5w Pmx 100 1 gm In Dextrose/Water 1 100ml.bag @ 100 mls/hr IVPB ONCE ONE Rx#: [id number] Mvi, Adult No.4 with Vit 70 K 10 ml Trace (Conc-1Ml/ Dose) 1 ml Sodium Chloride 4Meq/ml Vial 64 meq Potassium Chloride 10 meq Calcium Gluconate 1 gm Magnesium Sulfate gm 1 .25 gm Sodium Phosphate 21 mmol Potassium Acetate 24 meq In Amino Acids 5 %/Dextrose 20 % 1,000 ml @ 70 mls/hr IV .BY DURATION [facility] Rx#: [id number] Potassium Chloride 10 meq 200 In Water For Injection 1 100ml.bag @ 100 mls/hr IVPB Q1H [facility] Rx#: [id number] Sodium Chloride 0.9% 1, 975 825 150 000 ml @ 75 mls/hr IV . [id number] [facility] Rx#:[id number] Intake, IV Titration 200 Amount Potassium Chloride 10 meq 200 In Water For Injection 1 100ml.bag @ 100 mls/hr IVPB Q1H [facility] Rx#: [id number] TPN/PPN 910 210 Mvi, Adult No.4 with Vit 910 210 K 10 ml Trace (Conc-1Ml/ Dose) 1 ml Sodium Chloride 4Meq/ml Vial 64 meq Potassium Chloride 10 meq Calcium Gluconate 1 gm Magnesium Sulfate gm 1 .25 gm Sodium Phosphate 21 mmol Potassium Acetate 24 meq In Amino Acids 5 %/Dextrose 20 % 1,000 ml @ 70 mls/hr IV .BY DURATION [facility] Rx#: [id number] Output: Urine 1160 765 225 Stool 900 500 Other: Voiding Method Indwelling Catheter Indwelling Catheter Indwelling Catheter ABP, PAP, CO, CI - Last Documented Arterial Blood Pressure 129/56 - Exam GENERAL EXAM: Awake, alert 49-year-old male patient, on mechanical ventilator with a PSV of 10 and a PEEP of 5,, comfortable, awake and communicating. HEAD: Normocephalic. EYES: Normal reaction of pupils, equal size. NOSE: Clear with pink turbinates. THROAT: Tracheostomy tube secured in place. No erythema or exudates. NECK: No masses, no JVD. CHEST: No chest wall deformity. LUNGS: Equal air entry with coarse rhonchi bilaterally. CVS: S1 and S2 normal with no audible murmur, regular rhythm. ABDOMEN: Enterocutaneous fistula over the abdominal wall. No hepatos plenomegaly, normal bowel sounds. SPINE: No scoliosis or deformity SKIN: No rashes CENTRAL NERVOUS SYSTEM: No focal deficits, tone is normal in all 4 extremities. EXTREMITIES: Extensive muscle atrophy. Contractures. There is no peripheral edema. No clubbing, no cyanosis. Peripheral pulses are intact. - Labs CBC & Chem 7: 07/30/24 04:18 07/30/24 04:18 Labs: Abnormal Lab Results - Last 24 Hours (Table) 07/30/24 07/30/24 07/30/24 Range/Units 04:18 04:18 05:51 RBC 3.77 L (4.40-5.60) 10*6/uL Hgb 9.4 L (13.0-17.0) g/dL Hct 32.1 L (39.6-50.0) % MCH 24.9 L (27.0-32.0) pg MCHC 29.3 L (32.0-37.0) g/dL ABG pH 7.34 L (7.35-7.45) ABG pCO2 46 H (35-45) mmHg ABG Total CO2 27 H (19-24) mmol/L ABG O2 Saturation 97.4 H (94-97) % Chloride 108 H (98-107) mmol/L Creatinine 0.34 L (0.66-1.25) mg/dL Glucose 137 H (74-99) mg/dL Assessment and Plan Plan: Acute on chronic hypoxemic and hypercapnic respiratory failure, mainly secondary to recurrent mucous plugging. The patient has had multiple bronchoscopies with BAL with the most recent July 07, 2024. The culture at that time was positive for Pseudomonas aeruginosa and the repeat cultures from the sputum on 07/20/2024 still showing Pseudomonas aeruginosa and a chest x-ray from 07/27/2024 showing some atelectatic changes in lung bases bilaterally. The patient remains on ceftolozane tazobactam. Afebrile. No significant leukocytosis. Respiratory secretions are scant and the patient is currently on a PSV mode of mechanical ventilator with a PSV of 10 and a PEEP of 5 and an FiO2 of 5%. Blood gas is showing a mild component of respiratory acidosis. The patient has profound neuromuscular weakness, contributing to the respiratory failure. Respiratory secretions are scant. The patient is alternating between a T-piece and a pressure support mode of mechanical ventilation. Unable to completely come off the mechanical ventilator and he seems to be becoming vent dependent on a chronic basis. 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 History of sepsis, secondary to pneumonia Crohn's disease, with previous bowel perforation, status post colectomy and diverting ileostomy Tracheobronchomalacia History of DVT History of CVA/TIA Right below the knee amputation History of asystole/cardiac arrest, 2021 Plan: Will continue alternating between a 28% T-piece and a PSV mode of mechanical ventilation. Arrange home ventilator Chest x-ray findings are unchanged The patient remains on Zerbaxa, completing his 10-day course of treatment today Remains on TPN and lipids for nutritional support Remains on therapeutic Lovenox Continue bronchodilators Continue Zerbaxa Continue frequent suctioning as necessary Remains on scopolamine patch We will continue to follow Working with case management regarding placement issues as the patient has significant social barriers for discharge. He will need a home ventilator at time of discharge. Critical care evaluation that was done at 33 minutes. Time with Patient: Greater than 30
--- NOTE | 2024-07-30 21:54 | P.PN ---
Subjective Progress Note Date: 07/29/24 Principal diagnosis: Reason for follow-up is sepsis and pneumonia Patient is a 49-year-old male with multiple comorbidities including Crohn's disease status post colectomy diverting ileostomy tracheobronchomalacia CVA TIA cardiac arrest and history of recurrent pneumonias secondary to mucous plugging patient was recently discharged from this facility has been brought back to the hospital concerning for increasing shortness of breath and hypoxemia, patient did have worsening respiratory status requiring intubation and admission to the ICU subsequently transition to trach collar on 07/26/2024 On today's evaluation that is 07/29/2024, Patient is afebrile patient is currently on trach collar with 28% FiO2 seem to be breathing comfortably no chest pain or worsening cough no nausea no vomiting and no other changes reported by the nursing staff. Patient did have a white count of 5.52 creatinine 0.32 Objective - Vital Signs Vital signs: Vital Signs Temp 98.3 F 07/29/24 12:00 Pulse 77 07/29/24 12:19 Resp 24 07/29/24 12:00 BP 91/48 07/26/24 01:00 Pulse Ox 100 07/29/24 12:00 FiO2 28 07/29/24 12:00 Intake & Output 07/28/24 07/29/24 07/29/24 18:59 06:59 18:59 Intake Total 1609 1670 1070 Output Total 2120 1700 925 Balance -511 -30 145 Weight 90.5 kg Intake: IV 825 900 450 Sodium Chloride 0.9% 1, 825 900 450 000 ml @ 75 mls/hr IV . [id number] [facility] Rx#:[id number] Intake, IV Titration 84 200 Amount Fat Emulsion 20% 250 ml 84 In Empty Bag 1 bag @ 21 mls/hr IV Q72H [facility] Rx#: [id number] Potassium Chloride 10 meq 200 In Water For Injection 1 100ml.bag @ 100 mls/hr IVPB Q1H [facility] Rx#: [id number] TPN/PPN 700 770 420 Mvi, Adult No.4 with Vit 700 770 420 K 10 ml Trace (Conc-1Ml/ Dose) 1 ml Sodium Chloride 4Meq/ml Vial 64 meq Potassium Chloride 10 meq Calcium Gluconate 1 gm Magnesium Sulfate gm 1 .25 gm Sodium Phosphate 21 mmol Potassium Acetate 24 meq In Amino Acids 5 %/Dextrose 20 % 1,000 ml @ 70 mls/hr IV .BY DURATION [facility] Rx#: [id number] Output: Urine 870 700 525 Stool 1250 1000 400 Other: Voiding Method Indwelling Catheter Indwelling Catheter Indwelling Catheter ABP, PAP, CO, CI - Last Documented Arterial Blood Pressure 147/64 - Exam GENERAL DESCRIPTION: Middle-age male lying in bed in no distress RESPIRATORY SYSTEM: Unlabored breathing , decreased breath sounds at bases HEART: S1 S2 regular rate and rhythm , ABDOMEN: Soft , no tenderness EXTREMITIES: Some swelling to the leg but no redness - Labs CBC & Chem 7: 07/30/24 04:18 07/30/24 04:18 Labs: Abnormal Lab Results - Last 24 Hours (Table) 07/29/24 07/29/24 07/29/24 Range/Units 03:09 03:09 05:21 RBC 3.96 L (4.40-5.60) 10*6/uL Hgb 9.6 L (13.0-17.0) g/dL Hct 33.7 L (39.6-50.0) % MCH 24.2 L (27.0-32.0) pg MCHC 28.5 L (32.0-37.0) g/dL ABG pH 7.34 L (7.35-7.45) ABG pCO2 48 H (35-45) mmHg ABG HCO3 26 H (21-25) mmol/L ABG Total CO2 27 H (19-24) mmol/L ABG O2 Saturation 97.4 H (94-97) % Hemoglobin 10.1 L (13.0-17.5) gm/dL Sodium 136 L (137-145) mmol/L Creatinine 0.32 L (0.66-1.25) mg/dL Glucose 113 H (74-99) mg/dL POC Glucose (mg/dL) (70-110) mg/dL 07/29/24 Range/Units 05:59 RBC (4.40-5.60) 10*6/uL Hgb (13.0-17.0) g/dL Hct (39.6-50.0) % MCH (27.0-32.0) pg MCHC (32.0-37.0) g/dL ABG pH (7.35-7.45) ABG pCO2 (35-45) mmHg ABG HCO3 (21-25) mmol/L ABG Total CO2 (19-24) mmol/L ABG O2 Saturation (94-97) % Hemoglobin (13.0-17.5) gm/dL Sodium (137-145) mmol/L Creatinine (0.66-1.25) mg/dL Glucose (74-99) mg/dL POC Glucose (mg/dL) 113 H (70-110) mg/dL Assessment and Plan (1) Pneumonia Current Visit: No Status: Acute Code(s): J18.9 - PNEUMONIA, UNSPECIFIED ORGANISM SNOMED Code(s): 317576811 (2) Sepsis Current Visit: No Status: Acute Code(s): A41.9 - SEPSIS, UNSPECIFIED ORGANISM SNOMED Code(s): 56356742 Plan: 1patient with sepsis in this patient who did have fever tachycardia elevated white count meeting currently for SIRS source is likely pneumonia etiology could be mucous plugging and inadequate suction in the outpatient setting plus minus a catheter associated as a patient also significantly positive UA. 2sputum culture has been requested which are currently growing Pseudomonas sensitivities pending urine culture have been negative blood culture so far negative 3patient sputum positive for Pseudomonas now resistant to Avycaz. 4patient is afebrile white count has been normal patient is on Zerbaxa day #7 and no plan for any IV antibiotics on discharge Dictation was produced using [employer] dictation software. please excuse any grammatical, word or spelling errors. Time with Patient: Less than 30
--- NOTE | 2024-07-30 21:55 | P.PN ---
Subjective Progress Note Date: 07/30/24 Principal diagnosis: Reason for follow-up is sepsis and pneumonia Patient is a 49-year-old male with multiple comorbidities including Crohn's disease status post colectomy diverting ileostomy tracheobronchomalacia CVA TIA cardiac arrest and history of recurrent pneumonias secondary to mucous plugging patient was recently discharged from this facility has been brought back to the hospital concerning for increasing shortness of breath and hypoxemia, patient did have worsening respiratory status requiring intubation and admission to the ICU subsequently transition to trach collar on 07/26/2024 On today's evaluation that is 07/30/2024, patient has been afebrile, patient is breathing comfortably and is currently on trach collar was complaining of issues with increased secretions this morning did improve after suctioning is currently on 28% FiO2 no nausea vomiting or any other changes reported by the nursing staff. Patient did have a white count of 6.01 creatinine 0.34 Objective - Vital Signs Vital signs: Vital Signs Temp 98.4 F 07/30/24 12:00 Pulse 85 07/30/24 14:00 Resp 27 H 07/30/24 14:00 BP 91/48 07/26/24 01:00 Pulse Ox 100 07/30/24 14:00 FiO2 28 07/30/24 12:00 Intake & Output 07/29/24 07/30/24 07/30/24 18:59 06:59 18:59 Intake Total 2085 1235 1890 Output Total 2060 1265 2375 Balance 25 -30 -485 Weight 91.2 kg Intake: IV 975 1025 1390 Ceftolozane/Tazobactam 3 100 100 gm In Sodium Chloride 0.9 % 100 ml @ 100 mls/hr IV Q8HR [facility] Rx#:[id number] Magnesium Sulfate-D5w Pmx 100 1 gm In Dextrose/Water 1 100ml.bag @ 100 mls/hr IVPB ONCE ONE Rx#: [id number] Mvi, Adult No.4 with Vit 490 K 10 ml Trace (Conc-1Ml/ Dose) 1 ml Sodium Chloride 4Meq/ml Vial 64 meq Potassium Chloride 10 meq Calcium Gluconate 1 gm Magnesium Sulfate gm 1 .25 gm Sodium Phosphate 21 mmol Potassium Acetate 24 meq In Amino Acids 5 %/Dextrose 20 % 1,000 ml @ 70 mls/hr IV .BY D[facility]ATION [facility] Rx#: [id number] Potassium Chloride 10 meq 200 In Water For Injection 1 100ml.bag @ 100 mls/hr IVPB Q1H [facility] Rx#: [id number] Sodium Chloride 0.9% 1, 975 825 600 000 ml @ 75 mls/hr IV . [id number] [facility] Rx#:[id number] Intake, IV Titration 200 Amount Potassium Chloride 10 meq 200 In Water For Injection 1 100ml.bag @ 100 mls/hr IVPB Q1H [facility] Rx#: [id number] Oral 500 TPN/PPN 910 210 Mvi, Adult No.4 with Vit 910 210 K 10 ml Trace (Conc-1Ml/ Dose) 1 ml Sodium Chloride 4Meq/ml Vial 64 meq Potassium Chloride 10 meq Calcium Gluconate 1 gm Magnesium Sulfate gm 1 .25 gm Sodium Phosphate 21 mmol Potassium Acetate 24 meq In Amino Acids 5 %/Dextrose 20 % 1,000 ml @ 70 mls/hr IV .BY DURATION [facility] Rx#: [id number] Output: Urine 1160 765 975 Stool 666 319 9201 Other: Voiding Method Indwelling Catheter Indwelling Catheter Indwelling Catheter ABP, PAP, CO, CI - Last Documented Arterial Blood Pressure 140/57 - Exam GENERAL DESCRIPTION: Middle-age male lying in bed in no distress RESPIRATORY SYSTEM: Unlabored breathing , decreased breath sounds at bases HEART: S1 S2 regular rate and rhythm , ABDOMEN: Soft , no tenderness EXTREMITIES: Some swelling to the leg but no redness - Labs CBC & Chem 7: 07/30/24 04:18 07/30/24 04:18 Labs: Abnormal Lab Results - Last 24 Hours (Table) 07/30/24 07/30/24 07/30/24 Range/Units 04:18 04:18 05:51 RBC 3.77 L (4.40-5.60) 10*6/uL Hgb 9.4 L (13.0-17.0) g/dL Hct 32.1 L (39.6-50.0) % MCH 24.9 L (27.0-32.0) pg MCHC 29.3 L (32.0-37.0) g/dL ABG pH 7.34 L (7.35-7.45) ABG pCO2 46 H (35-45) mmHg ABG Total CO2 27 H (19-24) mmol/L ABG O2 Saturation 97.4 H (94-97) % Chloride 108 H (98-107) mmol/L Creatinine 0.34 L (0.66-1.25) mg/dL Glucose 137 H (74-99) mg/dL Assessment and Plan (1) Pneumonia Current Visit: No Status: Acute Code(s): J18.9 - PNEUMONIA, UNSPECIFIED ORGANISM SNOMED Code(s): 265039929 (2) Sepsis Current Visit: No Status: Acute Code(s): A41.9 - SEPSIS, UNSPECIFIED ORGANISM SNOMED Code(s): 54032824 Plan: 1patient with sepsis in this patient who did have fever tachycardia elevated white count meeting currently for SIRS source is likely pneumonia etiology could be mucous plugging and inadequate suction in the outpatient setting plus minus a catheter associated as a patient also significantly positive UA. 2sputum culture has been requested which are currently growing Pseudomonas sensitivities pending urine culture have been negative blood culture so far negative 3patient sputum positive for Pseudomonas now resistant to Avycaz. 4patient is afebrile white count has been normal patient is on Zerbaxa day #8 and at the end patient has received adequate IV antibiotics for his underlying pneumonia and no plan for any IV antibiotics on discharge 5-prescription for inhalation tobramycin has been provided to the case mgr to arrange for the patient on discharge to help decrease the risk of recurrent pseudomonal pneumonia Plan of care was discussed with the mother at the bedside Dictation was produced using [employer] software. please excuse any grammatical, word or spelling errors. Time with Patient: Less than 30
--- NOTE | 2024-07-31 02:36 | PN ---
PROGRESS NOTE DATE OF SERVICE: 07/30/2024 SUBJECTIVE: This is a 49-year-old gentleman admitted with recurrent acute respiratory failure, had tracheostomy at home and is being planned at this time. No chest pain. No palpitation. The patient also had chronic Pseudomonas, recurrent infection. PHYSICAL EXAMINATION: VITAL SIGNS: Pulse 85, blood pressure 140/69, and respirations 27. CHEST: Few scattered rhonchi. ABDOMEN: Soft. NERVOUS SYSTEM: Diffusely weak. NECK: Tracheostomy present. LABORATORY DATA: Hemoglobin 9.4. Rest of the labs are noted. ASSESSMENT: 1. Acute on chronic hypoxic hypercarbic respiratory failure secondary to mucus plugging. 2. Recurrent Pseudomonas pneumonia and aspiration pneumonia. 3. Hypotension, improved. 4. Urinary tract infection. 5. Crohn disease with ileostomy, significant immunosuppression. 6. Multiple complex medical issues. RECOMMENDATIONS: Continue current management. Continue with bronchodilators. Otherwise, recommend outpatient tobramycin inhalation per Dr. Uriostegui. The patient is currently on Zerbaxa. We will continue rest of medications. Guarded prognosis. Further recommendations to follow. MMODL / IJN: [id number] /
[2024-07-31 06:22] LABS: HCT 32.3 % (39.6-50.0); HGB 9.3 g/dL (13.0-17.0); MCH 24.3 pg (27.0-32.0); MCHC 28.8 g/dL (32.0-37.0); MCV 84.3 fL (80.0-97.0); Mean Platelet Volume 12.1 fL (9.5-12.2); Platelet Count 252 10*3/uL (140-440); RBC 3.83 10*6/uL (4.40-5.60); RDW 16.7 % (11.5-14.5); WBC 6.05 10*3/uL (4.50-10.00)
[2024-07-31 06:38] LABS: African American GFR (CKD) >90 (>60 ml/min/1.73 sqM); Anion Gap 6 mmol/L; Blood Urea Nitrogen 13 mg/dL (9-20); Calcium 8.9 mg/dL (8.4-10.2); Carbon Dioxide 27 mmol/L (22-30); Chloride 103 mmol/L (98-107); Glucose 86 mg/dL (74-99); Magnesium 1.8 mg/dL (1.6-2.3); Non-African American GFR(CKD) >90 (>60 ml/min/1.73 sqM); Phosphorus 2.7 mg/dL (2.5-4.5); Potassium 4.1 mmol/L (3.5-5.1); Sodium 136 mmol/L (137-145)
[2024-07-31] MEDS: MAGNESIUM SULFATE-D5W PMX 1 GM in DEXTROSE/WATER 1 100ML.BAG IVPB ONE (06:51)
--- NOTE | 2024-07-31 08:34 | XR ---
EXAMINATION TYPE: XR chest 1V portable DATE OF EXAM: 07/31/2024 5:53 AM COMPARISON: 07/30/2024 CLINICAL INDICATION: Male, 49 years old with history of intubated, shortness of breath FINDINGS: Tracheostomy cannula. Left CVC tip lower SVC level. Surgical clips right base of the neck. Heart bord mile in size. Mild interstitial densities persist. Patchy retrocardiac opacity persists. Possible t race left pleural effusion. IMPRESSION: Similar mild interstitial density and patchy retrocardiac opacity. [facility], , 07/31/2024 8:32 AM
[2024-07-31 14:32] VITALS: BP 106/39
--- NOTE | 2024-07-31 14:37 | P.PN ---
Subjective Progress Note Date: 07/31/24 Principal diagnosis: Reason for follow-up is sepsis and pneumonia Patient is a 49-year-old male with multiple comorbidities including Crohn's disease status post colectomy diverting ileostomy tracheobronchomalacia CVA TIA cardiac arrest and history of recurrent pneumonias secondary to mucous plugging patient was recently discharged from this facility has been brought back to the hospital concerning for increasing shortness of breath and hypoxemia, patient did have worsening respiratory status requiring intubation and admission to the ICU subsequently transition to trach collar on 07/26/2024 On today's evaluation that is 07/31/2024, Patient is afebrile this morning patient is back on the ventilator FiO2 25% complaining of increasing secretion difficulty breathing today no nausea no vomiting no other changes reported The patient white count 6.05 creatinine 0.32 Objective - Vital Signs Vital signs: Vital Signs Temp 98.7 F 07/31/24 12:00 Pulse 76 07/31/24 14:00 Resp 17 07/31/24 14:00 BP 106/39 07/31/24 14:00 Pulse Ox 98 07/31/24 14:00 FiO2 25 07/31/24 13:00 Intake & Output 07/30/24 07/31/24 07/31/24 18:59 06:59 18:59 Intake Total 4022.5 1840 1015 Output Total 3250 2225 760 Balance 772.5 -385 255 Weight 92.8 kg Intake: IV 1760 1000 525 Ceftolozane/Tazobactam 3 100 100 gm In Sodium Chloride 0.9 % 100 ml @ 100 mls/hr IV Q8HR ANNIE Rx#:[id number] Mvi, Adult No.4 with Vit 560 K 10 ml Trace (Conc-1Ml/ Dose) 1 ml Sodium Chloride 4Meq/ml Vial 64 meq Potassium Chloride 10 meq Calcium Gluconate 1 gm Magnesium Sulfate gm 1 .25 gm Sodium Phosphate 21 mmol Potassium Acetate 24 meq In Amino Acids 5 %/Dextrose 20 % 1,000 ml @ 70 mls/hr IV .BY DURATION ANNIE Rx#: [id number] Potassium Chloride 10 meq 200 In Water For Injection 1 100ml.bag @ 100 mls/hr IVPB Q1H ANNIE Rx#: [id number] Sodium Chloride 0.9% 1, 900 900 525 000 ml @ 75 mls/hr IV . [id number] ANNIE Rx#:[id number] Intake, IV Titration 1052.5 Amount Sodium Chloride 4Meq/ml 1052.5 Vial 64 meq Calcium Gluconate 1 gm Magnesium Sulfate gm 1.25 gm Sodium Phosphate 21 mmol Potassium Acetate 34 meq In Amino Acids 5 %/ Dextrose 20 % 1,000 ml @ 70 mls/hr IV .BY DURATION [facility] Rx#:[id number] Oral 1000 TPN/PPN 210 840 490 Mvi, Adult No.4 with Vit 210 840 490 K 10 ml Trace (Conc-1Ml/ Dose) 1 ml Sodium Chloride 4Meq/ml Vial 64 meq Calcium Gluconate 1 gm Magnesium Sulfate gm 1 .25 gm Sodium Phosphate 21 mmol Potassium Acetate 34 meq In Amino Acids 5 %/Dextrose 20 % 1,000 ml @ 70 mls/hr IV .BY DURATION [facility] Rx#: [id number] Output: Urine 1350 1025 760 Stool 1900 1200 Other: Voiding Method Indwelling Catheter Indwelling Catheter Indwelling Catheter ABP, PAP, CO, CI - Last Documented Arterial Blood Pressure 136/55 - Exam GENERAL DESCRIPTION: Middle-age male lying in bed in no distress RESPIRATORY SYSTEM: Unlabored breathing , decreased breath sounds at bases HEART: S1 S2 regular rate and rhythm , ABDOMEN: Soft , no tenderness EXTREMITIES: Some swelling to the leg but no redness - Labs CBC & Chem 7: 07/31/24 04:37 07/31/24 04:37 Labs: Abnormal Lab Results - Last 24 Hours (Table) 07/31/24 07/31/24 Range/Units 04:37 04:37 RBC 3.83 L (4.40-5.60) 10*6/uL Hgb 9.3 L (13.0-17.0) g/dL Hct 32.3 L (39.6-50.0) % MCH 24.3 L (27.0-32.0) pg MCHC 28.8 L (32.0-37.0) g/dL Sodium 136 L (137-145) mmol/L Creatinine 0.32 L (0.66-1.25) mg/dL Assessment and Plan (1) Pneumonia Current Visit: No Status: Acute Code(s): J18.9 - PNEUMONIA, UNSPECIFIED ORGANISM SNOMED Code(s): 516067037 (2) Sepsis Current Visit: No Status: Acute Code(s): A41.9 - SEPSIS, UNSPECIFIED ORGANISM SNOMED Code(s): 86425373 Plan: 1patient with sepsis in this patient who did have fever tachycardia elevated white count meeting currently for SIRS source is likely pneumonia etiology could be mucous plugging and inadequate suction in the outpatient setting plus minus a catheter associated as a patient also significantly positive UA. 2sputum culture has been requested which are currently growing Pseudomonas sensitivities pending urine culture have been negative blood culture so far negative 3patient sputum positive for Pseudomonas now resistant to Avycaz. 4patient is afebrile white count has been normal patient is on Zerbaxa day #9 and plan is to finish a 10-day course of therapy as the patient apparently will be the hospital in early next week as reported by the nursing staff, case repairer is working on tobramycin inhalation approval from insurance for pr evention of recurrent Pseudomonas pneumonia Plan of care was discussed with the mother at the bedside Dictation was produced using [employer] dictation software. please excuse any grammatical, word or spelling errors. Time with Patient: Less than 30
--- NOTE | 2024-07-31 15:14 | P.PN ---
Subjective Progress Note Date: 07/31/24 On 07/27/2024, the patient has been on a 28% trach collar for the past 24 hours. The patient was taken off the mechanical ventilator yesterday. Chest x-ray from today shows smaller lung volumes, some atelectatic changes lung base bilaterally along with that there is mild pulm vessel congestion and patchy left more than right bibasilar opacities related to atelectasis. Sputum samples positive for Pseudomonas aeruginosa and the patient is currently on ceftolozane/tazobactam. Patient is afebrile. The patient is on TPN for nutritional support. The patient ileostomy output was noted and remains quite high. Urine output is over 325 cc an hour. Fluid balance is -1.4 L over the past 24 hours and the patient has a #6 XLT Shiley tracheostomy tube in place. Arousable, able to communicate, profoundly weak and chronically debilitated. Blood work from today shows a white cell count of 6.9, hemoglobin 9.4, platelet of 200, BUN 50 with a creatinine of 0.34 and a sodium levels at 138 and a potassium level is at 4.1. On 07/28/2024, the patient is being seen for a follow-up. Earlier this morning, he complained of some increased shortness of breath and based on that the patient was placed back on a mechanical ventilator and is currently on a pressure support of 10 and a PEEP of 5 with an FiO2 of 45%. Blood gas showed a pH of 7.3 with a pCO2 of 52 and pO2 of 75. Chest x-ray findings are unchanged and the patient has some limited infiltration and atelectasis in the lung base bilaterally. Respiratory secretions are scant. He is having increased coughing. He remains on TPN for additional support rate of 70. He is also on normal saline at rate of 75 cc an hour. Ileostomy output is 1 L. This was obtained over the past 12 hours. Fluid balance is -1.4 L over the past 24 hours. Remains profoundly weak. Awake and alert and communicating. The white cell count at 6.7 with a hemoglobin 9.5 and a platelet count of 250. BUN is 14 with a creatinine of 0.3. Sodium is at 138 and a potassium level is at 4.1. On 07/29/2024, the patient is back and forth between a 28% T-piece and a PSV mode of mechanical ventilation. This morning, the patient is on a PSV of 10 and a PEEP of 5. Blood gas showed a pH of 7.34 with a PCO2 of 48 and PO2 of 88. The patient is calm and comfortable. Chest x-ray findings are unchanged and the patient remains on ceftolozane/tazobactam per IDs recommendations. No fever no chills. Remains on TPN for nutritional support running at 70 cc an hour. Remai ns on normal saline at 75 cc an hour. Ostomy output has been 500 cc per shift. Hemodynamically stable. Communicating. White cell count of 5.5 with a hemoglobin 9.6 and a platelet count of 202. Sodium is at 136, potassium low at 3.6, BUN is 12 with a creatinine of 0.32. No other significant events overnight. 07/30/2024, patient is on a pressure support of 10 and a PEEP of 5 and his condition remains unchanged. Continues to alternate between pressure support and a T-piece. Blood gases this morning showed a pH of 7.34 with a [id number] and PO2 of 83. Completing his last dose of Zerbaxa for pseudomonal pneumonia. He is on TPN at rate of 72 cc an hour. Normal saline rate of 75 cc an hour. Ileostomy output was half a liter over the past 8 hours. Hemodynamically stable. Afebrile. Able to communicate. The white cell count is 6 with a hemoglobin 9.4 and platelet count 217. BUN is 40 with a creatinine of 0.3 and a sodium level at 137. No other significant events overnight. On 07/31/2024, the patient is being seen for a follow-up. The patient remains on a mechanical ventilator with a PSV of 10 and a PEEP of 5. Remains on TPN at rate of 70, remains on normal saline at rate of 75 and ileostomy output is noted of 1 L every shift. Clinically unchanged over the past 3 days. The white cell count is at 6 with a hemoglobin 9.3 and a platelet count of 52. Chest x-ray shows no significant change compared to yesterday and the patient completed his course of antibiotics with Zerbaxa. Most recent blood gases while being on PSV showed a pH of 7.34 with a PCO2 of 46 and PO2 of 83. Sodium levels at 136, serum bicarb is at 27, potassium is at 4.1. BUN 13 with a creatinine of 0.32. Remains comfortable in bed. Denies having any new complaints. Arrangements are being made for a home ventilator. I took the opportunity to switch this patient to an AVAPS mode of mechanical ventilator with a target volume of 450 cc. Objective - Vital Signs Vital signs: Vital Signs Temp 98.7 F 07/31/24 12:00 Pulse 84 07/31/24 15:00 Resp 17 07/31/24 15:00 BP 106/39 07/31/24 14:00 Pulse Ox 98 07/31/24 15:00 FiO2 25 07/31/24 13:00 Intake & Output 07/30/24 07/31/24 07/31/24 18:59 06:59 18:59 Intake Total 4022.5 1840 1305 Output Total 3250 2225 910 Balance 772.5 -385 395 Weight 92.8 kg Intake: IV 1760 1000 675 Ceftolozane/Tazobactam 3 100 100 gm In Sodium Chloride 0.9 % 100 ml @ 100 mls/hr IV Q8HR [facility] Rx#:[id number] Mvi, Adult No.4 with Vit 560 K 10 ml Trace (Conc-1Ml/ Dose) 1 ml Sodium Chloride 4Meq/ml Vial 64 meq Potassium Chloride 10 meq Calcium Gluconate 1 gm Magnesium Sulfate gm 1 .25 gm Sodium Phosphate 21 mmol Potassium Acetate 24 meq In Amino Acids 5 %/Dextrose 20 % 1,000 ml @ 70 mls/hr IV .BY DURATION [facility] Rx#: [id number] Potassium Chloride 10 meq 200 In Water For Injection 1 100ml.bag @ 100 mls/hr IVPB Q1H ANNIE Rx#: [id number] Sodium Chloride 0.9% 1, 900 900 675 000 ml @ 75 mls/hr IV . [id number] ANNIE Rx#:[id number] Intake, IV Titration 1052.5 Amount Sodium Chloride 4Meq/ml 1052.5 Vial 64 meq Calcium Gluconate 1 gm Magnesium Sulfate gm 1.25 gm Sodium Phosphate 21 mmol Potassium Acetate 34 meq In Amino Acids 5 %/ Dextrose 20 % 1,000 ml @ 70 mls/hr IV .BY DURATION [facility] Rx#:[id number] Oral 1000 TPN/PPN 210 840 630 Mvi, Adult No.4 with Vit 210 840 630 K 10 ml Trace (Conc-1Ml/ Dose) 1 ml Sodium Chloride 4Meq/ml Vial 64 meq Calcium Gluconate 1 gm Magnesium Sulfate gm 1 .25 gm Sodium Phosphate 21 mmol Potassium Acetate 34 meq In Amino Acids 5 %/Dextrose 20 % 1,000 ml @ 70 mls/hr IV .BY DURATION [facility] Rx#: [id number] Output: Urine 1350 1025 910 Stool 1900 1200 Other: Voiding Method Indwelling Catheter Indwelling Catheter Indwelling Catheter ABP, PAP, CO, CI - Last Documented Arterial Blood Pressure 119/44 - Exam GENERAL EXAM: Awake, alert 49-year-old male patient, on mechanical ventilator with a PSV of 10 and a PEEP of 5,, comfortable, awake and communicating. HEAD: Normocephalic. EYES: Normal reaction of pupils, equal size. NOSE: Clear with pink turbinates. THROAT: Tracheostomy tube secured in place. No erythema or exudates. NECK: No masses, no JVD. CHEST: No chest wall deformity. LUNGS: Equal air entry with coarse rhonchi bilaterally. CVS: S1 and S2 normal with no audible murmur, regular rhythm. ABDOMEN: Enterocutaneous fistula over the abdominal wall. No hepatosplenomegaly, normal bowel sounds. SPINE: No scoliosis or deformity SKIN: No rashes CENTRAL NERVOUS SYSTEM: No focal deficits, tone is normal in all 4 extremities. EXTREMITIES: Extensive muscle atrophy. Contractures. There is no peripheral edema. No clubbing, no cyanosis. Peripheral pulses are intact. - Labs CBC & Chem 7: 07/31/24 04:37 07/31/24 04:37 Labs: Abnormal Lab Results - Last 24 Hours (Table) 07/31/24 07/31/24 Range/Units 04:37 04:37 RBC 3.83 L (4.40-5.60) 10*6/uL Hgb 9.3 L (13.0-17.0) g/dL Hct 32.3 L (39.6-50.0) % MCH 24.3 L (27.0-32.0) pg MCHC 28.8 L (32.0-37.0) g/dL Sodium 136 L (137-145) mmol/L Creatinine 0.32 L (0.66-1.25) mg/dL Assessment and Plan Plan: Acute on chronic hypoxemic and hypercapnic respiratory failure, mainly secondary to recurrent mucous plugging. The patient has had multiple bronchoscopies with BAL with the most recent July 07, 2024. The culture at that time was positive for Pseudomonas aeruginosa and the repeat cultures from the sputum on 07/20/2024 still showing Pseudomonas aeruginosa and a chest x-ray from 07/27/2024 showing some atelectatic changes in lung bases bilaterally. The patient remains on ceftolozane tazobactam. Afebrile. No significant leukocytosis. Respiratory secretions are scant and the patient is currently on a PSV mode of mechanical ventilator with a PSV of 10 and a PEEP of 5 and an FiO2 of 5%. Blood gas is showing a mild component of respiratory acidosis. The patient has profound neuromuscular weakness, contributing to the respiratory failure. Respiratory secretions are scant. The patient is alternating between a T-piece and a pressure support mode of mechanical ventilation. Unable to completely come off the mechanical ventilator and he seems to be becoming vent dependent on a chronic basis. The patient would likely need a permanent ventilator. History of recurrent ventilator dependent respiratory failure, secondary to pneumonia and mucous plugging, improved. 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 History of sepsis, secondary to pneumonia Crohn's disease, with previous bowel perforation, status post colectomy and diverting ileostomy Tracheobronchomalacia History of DVT History of CVA/TIA Right below the knee amputation History of asystole/cardiac arrest, 2021 Plan: Switch this patient to an AVAPS mode of mechanical ventilator with a target volume of 450 cc Arrange home ventilator Chest x-ray findings are unchanged The patient remains on Zerbaxa, completed his 10-day course of treatment today Remains on TPN and lipids for nutritional support Remains on therapeutic Lovenox Continue bronchodilators Continue frequent suctioning as necessary Remains on scopolamine patch We will continue to follow Working with case management regarding placement issues as the patient has significant social barriers for discharge. He will need a home ventilator at time of discharge. Critical care evaluation that was done at 33 minutes. Time with Patient: Greater than 30
[2024-08-01 04:20] LABS: HCT 30.5 % (39.6-50.0); MCH 24.7 pg (27.0-32.0); MCHC 29.5 g/dL (32.0-37.0); MCV 83.6 fL (80.0-97.0); Mean Platelet Volume 11.5 fL (9.5-12.2); Platelet Count 266 10*3/uL (140-440); RBC 3.65 10*6/uL (4.40-5.60); RDW 16.7 % (11.5-14.5); WBC 5.78 10*3/uL (4.50-10.00)
[2024-08-01 04:47] LABS: African American GFR (CKD) >90 (>60 ml/min/1.73 sqM); Anion Gap 7 mmol/L; Blood Urea Nitrogen 13 mg/dL (9-20); Calcium 9.1 mg/dL (8.4-10.2); Carbon Dioxide 26 mmol/L (22-30); Chloride 101 mmol/L (98-107); Glucose 119 mg/dL (74-99); Magnesium 1.7 mg/dL (1.6-2.3); Non-African American GFR(CKD) >90 (>60 ml/min/1.73 sqM); Potassium 3.8 mmol/L (3.5-5.1); Sodium 134 mmol/L (137-145)
--- NOTE | 2024-08-01 05:03 | PN ---
PROGRESS NOTE DATE OF SERVICE: 07/31/2024 SUBJECTIVE: This 49-year-old gentleman admitted with acute on chronic recurrent hypoxic respiratory failure, is being closely monitored. The patient had tracheostomy at home and is being arranged at this time. Nebulized tobramycin is also being looked into. The patient is closely monitored in ICU. PAST MEDICAL HISTORY: Could not be taken. REVIEW OF SYSTEMS: Could not be taken. CURRENT MEDICATIONS: Reviewed. PHYSICAL EXAMINATION: VITAL SIGNS: Pulse is 87, blood pressure n 50 respirations 17. CHEST: Few scattered rhonchi and crackles. ABDOMEN: Soft. NERVOUS SYSTEM: Unchanged. neck is tracheostomy. NECK: Tracheostomy. LABORATORY DATA: Hemoglobin 9.3, rest of labs are noted. ASSESSMENT: 1. Acute on chronic hypoxic respiratory failure secondary to mucus plugging. 2. Recurrent Pseudomonas pneumonia and aspiration pneumonia. 3. Hypotension, improved. 4. Urinary tract infection. 5. Crohn's disease with ileostomy with significant immunosuppression. 6. Multiple complex medical issues. RECOMMENDATIONS: Continue current management. Continue with antibiotics and bronchodilators. Otherwise, and train the family, otherwise, arrange for nebulized tobramycin per Infectious Disease. Closely monitor. Follow with multiple consultants. Discussed with the family at length. Further recommendations to follow. MMODL / IJN: [id number] / CATHERINE
[2024-08-01] MEDS: MAGNESIUM SULFATE-D5W PMX 1 GM in DEXTROSE/WATER 1 100ML.BAG IVPB ONE (05:17)
[2024-08-01] MEDS: POTASSIUM CHLORIDE 10 MEQ in WATER FOR INJECTION 1 100ML.BAG IVPB SCH (06:22)
--- NOTE | 2024-08-01 07:17 | XR ---
EXAMINATION TYPE: XR chest 1V portable DATE OF EXAM: 08/01/2024 COMPARISON: 07/31/2024 CLINICAL INDICATION: Male, 49 years old with history of intubated; TECHNIQUE: Single frontal view of the chest is obtained. FINDINGS: No change in tracheostomy tube or left jugular central venous catheter tip. The pulmonary vasculature is not congested. There is no change in the retrocardiac opacity.. There is no pneumothorax. The oss eous structures are grossly intact. IMPRESSION: No change in the retrocardiac opacity consistent with atelectasis or pneumonia. Follow-up to resoluti on is recommended. [facility], , 08/01/2024 7:15 AM
--- NOTE | 2024-08-01 13:59 | P.PN ---
Subjective Progress Note Date: 08/01/24 On 07/27/2024, the patient has been on a 28% trach collar for the past 24 hours. The patient was taken off the mechanical ventilator yesterday. Chest x-ray from today shows smaller lung volumes, some atelectatic changes lung base bilaterally along with that there is mild pulm vessel congestion and patchy left more than right bibasilar opacities related to atelectasis. Sputum samples positive for Pseudomonas aeruginosa and the patient is currently on ceftolozane/tazobactam. Patient is afebrile. The patient is on TPN for nutritional support. The patient ileostomy output was noted and remains quite high. Urine output is over 325 cc an hour. Fluid balance is -1.4 L over the past 24 hours and the patient has a #6 XLT Shiley tracheostomy tube in place. Arousable, able to communicate, profoundly weak and chronically debilitated. Blood work from today shows a white cell count of 6.9, hemoglobin 9.4, platelet of 200, BUN 50 with a creatinine of 0.34 and a sodium levels at 138 and a potassium level is at 4.1. On 07/28/2024, the patient is being seen for a follow-up. Earlier this morning, he complained of some increased shortness of breath and based on that the patient was placed back on a mechanical ventilator and is currently on a pressure support of 10 and a PEEP of 5 with an FiO2 of 45%. Blood gas showed a pH of 7.3 with a pCO2 of 52 and pO2 of 75. Chest x-ray findings are unchanged and the patient has some limited infiltration and atelectasis in the lung base bilaterally. Respiratory secretions are scant. He is having increased coughing. He remains on TPN for additional support rate of 70. He is also on normal saline at rate of 75 cc an hour. Ileostomy output is 1 L. This was obtained over the past 12 hours. Fluid balance is -1.4 L over the past 24 hours. Remains profoundly weak. Awake and alert and communicating. The white cell count at 6.7 with a hemoglobin 9.5 and a platelet count of 250. BUN is 14 with a creatinine of 0.3. Sodium is at 138 and a potassium level is at 4.1. On 07/29/2024, the patient is back and forth between a 28% T-piece and a PSV mode of mechanical ventilation. This morning, the patient is on a PSV of 10 and a PEEP of 5. Blood gas showed a pH of 7.34 with a PCO2 of 48 and PO2 of 88. The patient is calm and comfortable. Chest x-ray findings are unchanged and the patient remains on ceftolozane/tazobactam per IDs recommendations. No fever no chills. Remains on TPN for nutritional support running at 70 cc an hour. Remai ns on normal saline at 75 cc an hour. Ostomy output has been 500 cc per shift. Hemodynamically stable. Communicating. White cell count of 5.5 with a hemoglobin 9.6 and a platelet count of 202. Sodium is at 136, potassium low at 3.6, BUN is 12 with a creatinine of 0.32. No other significant events overnight. 07/30/2024, patient is on a pressure support of 10 and a PEEP of 5 and his condition remains unchanged. Continues to alternate between pressure support and a T-piece. Blood gases this morning showed a pH of 7.34 with a [id number] and PO2 of 83. Completing his last dose of Zerbaxa for pseudomonal pneumonia. He is on TPN at rate of 72 cc an hour. Normal saline rate of 75 cc an hour. Ileostomy output was half a liter over the past 8 hours. Hemodynamically stable. Afebrile. Able to communicate. The white cell count is 6 with a hemoglobin 9.4 and platelet count 217. BUN is 40 with a creatinine of 0.3 and a sodium level at 137. No other significant events overnight. On 07/31/2024, the patient is being seen for a follow-up. The patient remains on a mechanical ventilator with a PSV of 10 and a PEEP of 5. Remains on TPN at rate of 70, remains on normal saline at rate of 75 and ileostomy output is noted of 1 L every shift. Clinically unchanged over the past 3 days. The white cell count is at 6 with a hemoglobin 9.3 and a platelet count of 52. Chest x-ray shows no significant change compared to yesterday and the patient completed his course of antibiotics with Zerbaxa. Most recent blood gases while being on PSV showed a pH of 7.34 with a PCO2 of 46 and PO2 of 83. Sodium levels at 136, serum bicarb is at 27, potassium is at 4.1. BUN 13 with a creatinine of 0.32. Remains comfortable in bed. Denies having any new complaints. Arrangements are being made for a home ventilator. I took the opportunity to switch this patient to an AVAPS mode of mechanical ventilator with a target volume of 450 cc. 08/01/2024, patient is on pressure support of 10 and PEEP of 5. He was placed on AVAPS with a tidal volume of 450 yesterday and the patient did not feel comfo rtable with that mode of mechanical ventilation. Doing well on pressure support. Otherwise, his condition is unchanged. His chest x-ray findings are essentially stable and unchanged. No significant respiratory secretions. He remains on TPN rate of 70, normal saline at rate of 75 and the fluid balance is +635 cc over the past 24 hours. Able to communicate. The white cell count is at 5.7 with a hemoglobin of 9 and a platelet count of 266. Sodium is at 134, potassium is at 3.8, bicarbonate of 26 with a BUN of 13 and a creatinine of 0.29. Afebrile. Ileostomy output is noted and remains considerably high. Objective - Vital Signs Vital signs: Vital Signs Temp 98.2 F 08/01/24 04:00 Pulse 84 08/01/24 08:37 Resp 15 08/01/24 07:00 BP 106/39 07/31/24 14:00 Pulse Ox 98 08/01/24 07:00 FiO2 08/01/24 08:29 Intake & Output 07/31/24 08/01/24 08/01/24 18:59 06:59 18:59 Intake Total 1740 1940 145 Output Total 1720 1325 75 Balance 20 615 70 Weight 91 kg Intake: IV 900 1100 75 Ceftolozane/Tazobactam 3 100 gm In Sodium Chloride 0.9 % 100 ml @ 100 mls/hr IV Q8HR [facility] Rx#:[id number] Magnesium Sulfate-D5w Pmx 100 1 gm In Dextrose/Water 1 100ml.bag @ 100 mls/hr IVPB ONCE ONE Rx#: [id number] Sodium Chloride 0.9% 1, 900 900 75 000 ml @ 75 mls/hr IV . [id number] [facility] Rx#:[id number] TPN/PPN 840 840 70 Mvi, Adult No.4 with Vit 840 840 70 K 10 ml Trace (Conc-1Ml/ Dose) 1 ml Sodium Chloride 4Meq/ml Vial 64 meq Calcium Gluconate 1 gm Magnesium Sulfate gm 1 .25 gm Sodium Phosphate 21 mmol Potassium Acetate 34 meq In Amino Acids 5 %/Dextrose 20 % 1,000 ml @ 70 mls/hr IV .BY DURATION [facility] Rx#: [id number] Output: Urine 1120 925 75 Stool 600 400 Other: Voiding Method Indwelling Catheter Indwelling Catheter ABP, PAP, CO, CI - Last Documented Arterial Blood Pressure 129/57 - Exam GENERAL EXAM: Awake, alert 49-year-old male patient, on mechanical ventilator with a PSV of 10 and a PEEP of 5,, comfortable, awake and communicating. HEAD: Normocephalic. EYES: Normal reaction of pupils, equal size. NOSE: Clear with pink turbinates. THROAT: Tracheostomy tube secured in place. No erythema or exudates. NECK: No masses, no JVD. CHEST: No chest wall deformity. LUNGS: Equal air entry with coarse rhonchi bilaterally. CVS: S1 and S2 normal with no audible murmur, regular rhythm. ABDOMEN: Enterocutaneous fistula over the abdominal wall. No he patosplenomegaly, normal bowel sounds. SPINE: No scoliosis or deformity SKIN: No rashes CENTRAL NERVOUS SYSTEM: No focal deficits, tone is normal in all 4 extremities. EXTREMITIES: Extensive muscle atrophy. Contractures. There is no peripheral edema. No clubbing, no cyanosis. Peripheral pulses are intact. - Labs CBC & Chem 7: 08/01/24 03:53 08/01/24 03:53 Labs: Abnormal Lab Results - Last 24 Hours (Table) 08/01/24 08/01/24 Range/Units 03:53 03:53 RBC 3.65 L (4.40-5.60) 10*6/uL Hgb 9.0 L (13.0-17.0) g/dL Hct 30.5 L (39.6-50.0) % MCH 24.7 L (27.0-32.0) pg MCHC 29.5 L (32.0-37.0) g/dL Sodium 134 L (137-145) mmol/L Creatinine 0.29 L (0.66-1.25) mg/dL Glucose 119 H (74-99) mg/dL Assessment and Plan Plan: Acute on chronic hypoxemic and hypercapnic respiratory failure, mainly secondary to recurrent mucous plugging. The patient has had multiple bronchoscopies with BAL with the most recent July 07, 2024. The culture at that time was positive for Pseudomonas aeruginosa and the repeat cultures from the sputum on 07/20/2024 still showing Pseudomonas aeruginosa and a chest x-ray from 07/27/2024 showing some atelectatic changes in lung bases bilaterally. The patient remains on ceftolozane tazobactam. Afebrile. No significant leukocytosis. Respiratory secretions are scant and the patient is currently on a PSV mode of mechanical ventilator with a PSV of 10 and a PEEP of 5 and an FiO2 of 5%. Blood gas is showing a mild component of respiratory acidosis. The patient has profound neuromuscular weakness, contributing to the respiratory failure. Respiratory secretions are scant. Did not tolerate T-piece for extended period of time. Did not tolerate AVAPS mode. Doing well on PSV and the patient will be kept on the same PSV settings of 10/5 cm of water. Chest x-ray findings are essentially stable and unchanged. History of recurrent ventilator dependent respiratory failure, secondary to pneumonia and mucous plugging, improved. 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 History of sepsis, secondary to pneumonia Crohn's disease, with previous bowel perforation, status post colectomy and diverting ileostomy Tracheobronchomalacia History of DVT History of CVA/TIA Right below the knee amputation History of asystole/cardiac arrest, 2021 Plan: Patient will likely need long-term vent support. Will keep PSV of 10 and a PEEP of 5 and the patient is doing reasonably well in this current setting. Arrange home ventilator Chest x-ray findings are unchanged The patient remains on Zerbaxa, completed his 10-day course of treatment today, being considered for nebulized tobramycin on outpatient basis. The tracheostomy tube may need to be exchanged and replaced prior to his discharge. Remains on TPN and lipids for nutritional support Remains on therapeutic Lovenox Continue bronchodilators Continue frequent suctioning as necessary Remains on scopolamine patch We will continue to follow Working with case management regarding placement issues as the patient has significant social barriers for discharge. He will need a home ventilator at time of discharge. Critical care evaluation that was done at 33 minutes. Time with Patient: Greater than 30
--- NOTE | 2024-08-01 16:26 | P.PN ---
Subjective Progress Note Date: 08/01/24 Principal diagnosis: Reason for follow-up is sepsis and pneumonia Patient is a 49-year-old male with multiple comorbidities including Crohn's disease status post colectomy diverting ileostomy tracheobronchomalacia CVA TIA cardiac arrest and history of recurrent pneumonias secondary to mucous plugging patient was recently discharged from this facility has been brought back to the hospital concerning for increasing shortness of breath and hypoxemia, patient did have worsening respiratory status requiring intubation and admission to the ICU subsequently transition to trach collar on 07/26/2024 On today's evaluation that is 08/01/2024,the patient denies any fever or any chills, patient is breathing comfortably on trach collar with 28% FiO2 no chest pain or worsening cough or secretion no nausea vomiting and no pressors. Patient white count is 5.78, creatinine 0.29 Objective - Vital Signs Vital signs: Vital Signs Temp 98.2 F 08/01/24 12:00 Pulse 100 08/01/24 15:45 Resp 27 H 08/01/24 14:00 BP 106/39 07/31/24 14:00 Pulse Ox 99 08/01/24 14:00 FiO2 28 08/01/24 12:00 Intake & Output 07/31/24 08/01/24 08/01/24 18:59 06:59 18:59 Intake Total 1740 1940 1160 Output Total 1720 1325 1050 Balance 20 615 110 Weight 91 kg Intake: IV 900 1100 600 Ceftolozane/Tazobactam 3 100 gm In Sodium Chloride 0.9 % 100 ml @ 100 mls/hr IV Q8HR [facility] Rx#:[id number] Magnesium Sulfate-D5w Pmx 100 1 gm In Dextrose/Water 1 100ml.bag @ 100 mls/hr IVPB ONCE ONE Rx#: [id number] Sodium Chloride 0.9% 1, 900 900 600 000 ml @ 75 mls/hr IV . [id number] [facility] Rx#:[id number] TPN/PPN 840 840 560 Mvi, Adult No.4 with Vit 840 840 560 K 10 ml Trace (Conc-1Ml/ Dose) 1 ml Sodium Chloride 4Meq/ml Vial 64 meq Calcium Gluconate 1 gm Magnesium Sulfate gm 1 .25 gm Sodium Phosphate 21 mmol Potassium Acetate 34 meq In Amino Acids 5 %/Dextrose 20 % 1,000 ml @ 70 mls/hr IV .BY DURATION [facility] Rx#: [id number] Output: Urine 5700 573 8514 Stool 600 400 Other: Voiding Method Indwelling Catheter Indwelling Catheter Indwelling Catheter ABP, PAP, CO, CI - Last Documented Arterial Blood Pressure 137/65 - Exam GENERAL DESCRIPTION: Middle-age male lying in bed in no distress RESPIRATORY SYSTEM: Unlabored breathing , decreased breath sounds at bases HEART: S1 S2 regular rate and rhythm , ABDOMEN: Soft , no tenderness EXTREMITIES: Some swelling to the leg but no redness - Labs CBC & Chem 7: 08/01/24 03:53 08/01/24 03:53 Labs: Abnormal Lab Results - Last 24 Hours (Table) 08/01/24 08/01/24 Range/Units 03:53 03:53 RBC 3.65 L (4.40-5.60) 10*6/uL Hgb 9.0 L (13.0-17.0) g/dL Hct 30.5 L (39.6-50.0) % MCH 24.7 L (27.0-32.0) pg MCHC 29.5 L (32.0-37.0) g/dL Sodium 134 L (137-145) mmol/L Creatinine 0.29 L (0.66-1.25) mg/dL Glucose 119 H (74-99) mg/dL Assessment and Plan (1) Pneumonia Current Visit: No Status: Acute Code(s): J18.9 - PNEUMONIA, UNSPECIFIED ORGANISM SNOMED Code(s): 873803827 (2) Sepsis Current Visit: No Status: Acute Code(s): A41.9 - SEPSIS, UNSPECIFIED ORGANISM SNOMED Code(s): 26555951 Plan: 1patient with sepsis in this patient who did have fever tachycardia elevated white count meeting currently for SIRS source is likely pneumonia etiology could be mucous plugging and inadequate suction in the outpatient setting plus minus a catheter associated as a patient also significantly positive UA. 2sputum culture has been requested which are currently growing Pseudomonas sensitivities pending urine culture have been negative blood culture so far negative 3patient sputum positive for Pseudomonas now resistant to Avycaz. 4patient is afebrile white count has been normal patient is on Zerbaxa day #10 and will be discontinued after today's dose this was discussed with the pharmacist to put a stop date also discussed with the pulmonary for possible exchange of his tracheostomy tube to help prevent recurrent pseudomonal pneumonia Plan of care was discussed with the mother at the bedside Dictation was produced using [employer] software. please excuse any grammatical, word or spelling errors. Time with Patient: Less than 30
[2024-08-01] MEDS: 1: MVI, ADULT NO.4 WITH VIT K 10 ML, TRACE (CONC-1ML/DOSE) 1 ML, SODIUM CHLORIDE 4MEQ/ML IV SCH (16:30)
--- NOTE | 2024-08-01 23:34 | PN ---
PROGRESS NOTE DATE OF SERVICE: 08/01/2024 HISTORY OF PRESENT ILLNESS: This is a 49-year-old gentleman admitted with recurrent acute respiratory failure, is being planned to have home vent at this time. The patient has also had recurrent Pseudomonas pneumonia. Chest x-ray is rather stable at this time. Multiple consultants are following the patient closely. PAST MEDICAL HISTORY: Could not be taken. REVIEW OF SYSTEMS: Could not be taken. CURRENT MEDICATIONS: Reviewed. PHYSICAL EXAMINATION: VITAL SIGNS: Pulse is 92, blood pressure 136/64, and respirations 27. HEENT: Conjunctivae normal. CARDIOVASCULAR: S1, S2. RESPIRATION: Breath sounds diminished at the bases, few scattered rhonchi. NECK: Had tracheostomy. NERVOUS SYSTEM: Unchanged. LABORATORY DATA: WBC 5.7 and hemoglobin is 7. Other labs are noted. ASSESSMENT: 1. Acute on chronic hypoxic respiratory failure secondary to mucus plugging. 2. Recurrent Pseudomonas pneumonia and aspiration pneumonia. 3. Hypotension, improved. 4. Urinary tract infection. 5. Crohn disease with ileostomy with significant immunosuppression. 6. Multiple complex medical issues. RECOMMENDATIONS: Continue current management and symptomatic treatment. Home vent is being recommended by Pulmonary. Recommended to work with social service worker to arrange home and as well as arrange some training for the family also, perceive nebulized tobramycin at home to prevent the recurrence. Prognosis guarded. Further recommendations to follow. MMODL / IJN: [id number] /
[2024-08-02 04:30] LABS: HCT 33.1 % (39.6-50.0); HGB 9.6 g/dL (13.0-17.0); MCH 24.4 pg (27.0-32.0); Mean Platelet Volume 11.8 fL (9.5-12.2); Platelet Count 295 10*3/uL (140-440); RBC 3.94 10*6/uL (4.40-5.60); RDW 16.3 % (11.5-14.5); WBC 5.71 10*3/uL (4.50-10.00)
[2024-08-02 04:44] LABS: African American GFR (CKD) >90 (>60 ml/min/1.73 sqM); Anion Gap 4 mmol/L; Blood Urea Nitrogen 14 mg/dL (9-20); Calcium 8.8 mg/dL (8.4-10.2); Carbon Dioxide 28 mmol/L (22-30); Chloride 104 mmol/L (98-107); Glucose 106 mg/dL (74-99); Magnesium 1.8 mg/dL (1.6-2.3); Non-African American GFR(CKD) >90 (>60 ml/min/1.73 sqM); Phosphorus 3.1 mg/dL (2.5-4.5); Sodium 136 mmol/L (137-145)
[2024-08-02] MEDS: MAGNESIUM SULFATE-D5W PMX 1 GM in DEXTROSE/WATER 1 100ML.BAG IVPB ONE (04:53)
--- NOTE | 2024-08-02 07:09 | XR ---
EXAMINATION TYPE: XR chest 1V portable DATE OF EXAM: 08/02/2024 COMPARISON: 08/01/2024 CLINICAL INDICATION: Male, 49 years old with history of intubated; TECHNIQUE: Single frontal view of the chest is obtained. FINDINGS: No change in the central venous catheter or tracheostomy tube. There is no change in the retrocardiac opacity. The right lung is clear. There is no pneumothorax. Th e heart is not enlarged and the pulmonary vasculature is not congested. IMPRESSION: No change in the acute cardiopulmonary process involving the left lower lobe. [facility], , 08/02/2024 7:07 AM
[2024-08-02] MEDS: 1: MVI, ADULT NO.4 WITH VIT K 10 ML, TRACE (CONC-1ML/DOSE) 1 ML, SODIUM CHLORIDE 4MEQ/ML IV SCH (09:53)
--- NOTE | 2024-08-02 12:51 | P.PN ---
Subjective Progress Note Date: 08/02/24 On 07/27/2024, the patient has been on a 28% trach collar for the past 24 hours. The patient was taken off the mechanical ventilator yesterday. Chest x-ray from today shows smaller lung volumes, some atelectatic changes lung base bilaterally along with that there is mild pulm vessel congestion and patchy left more than right bibasilar opacities related to atelectasis. Sputum samples positive for Pseudomonas aeruginosa and the patient is currently on ceftolozane/tazobactam. Patient is afebrile. The patient is on TPN for nutritional support. The patient ileostomy output was noted and remains quite high. Urine output is over 325 cc an hour. Fluid balance is -1.4 L over the past 24 hours and the patient has a #6 XLT Shiley tracheostomy tube in place. Arousable, able to communicate, profoundly weak and chronically debilitated. Blood work from today shows a white cell count of 6.9, hemoglobin 9.4, platelet of 200, BUN 50 with a creatinine of 0.34 and a sodium levels at 138 and a potassium level is at 4.1. On 07/28/2024, the patient is being seen for a follow-up. Earlier this morning, he complained of some increased shortness of breath and based on that the patient was placed back on a mechanical ventilator and is currently on a pressure support of 10 and a PEEP of 5 with an FiO2 of 45%. Blood gas showed a pH of 7.3 with a pCO2 of 52 and pO2 of 75. Chest x-ray findings are unchanged and the patient has some limited infiltration and atelectasis in the lung base bilaterally. Respiratory secretions are scant. He is having increased coughing. He remains on TPN for additional support rate of 70. He is also on normal saline at rate of 75 cc an hour. Ileostomy output is 1 L. This was obtained over the past 12 hours. Fluid balance is -1.4 L over the past 24 hours. Remains profoundly weak. Awake and alert and communicating. The white cell count at 6.7 with a hemoglobin 9.5 and a platelet count of 250. BUN is 14 with a creatinine of 0.3. Sodium is at 138 and a potassium level is at 4.1. On 07/29/2024, the patient is back and forth between a 28% T-piece and a PSV mode of mechanical ventilation. This morning, the patient is on a PSV of 10 and a PEEP of 5. Blood gas showed a pH of 7.34 with a PCO2 of 48 and PO2 of 88. The patient is calm and comfortable. Chest x-ray findings are unchanged and the patient remains on ceftolozane/tazobactam per IDs recommendations. No fever no chills. Remains on TPN for nutritional support running at 70 cc an hour. Remai ns on normal saline at 75 cc an hour. Ostomy output has been 500 cc per shift. Hemodynamically stable. Communicating. White cell count of 5.5 with a hemoglobin 9.6 and a platelet count of 202. Sodium is at 136, potassium low at 3.6, BUN is 12 with a creatinine of 0.32. No other significant events overnight. 07/30/2024, patient is on a pressure support of 10 and a PEEP of 5 and his condition remains unchanged. Continues to alternate between pressure support and a T-piece. Blood gases this morning showed a pH of 7.34 with a [id number] and PO2 of 83. Completing his last dose of Zerbaxa for pseudomonal pneumonia. He is on TPN at rate of 72 cc an hour. Normal saline rate of 75 cc an hour. Ileostomy output was half a liter over the past 8 hours. Hemodynamically stable. Afebrile. Able to communicate. The white cell count is 6 with a hemoglobin 9.4 and platelet count 217. BUN is 40 with a creatinine of 0.3 and a sodium level at 137. No other significant events overnight. On 07/31/2024, the patient is being seen for a follow-up. The patient remains on a mechanical ventilator with a PSV of 10 and a PEEP of 5. Remains on TPN at rate of 70, remains on normal saline at rate of 75 and ileostomy output is noted of 1 L every shift. Clinically unchanged over the past 3 days. The white cell count is at 6 with a hemoglobin 9.3 and a platelet count of 52. Chest x-ray shows no significant change compared to yesterday and the patient completed his course of antibiotics with Zerbaxa. Most recent blood gases while being on PSV showed a pH of 7.34 with a PCO2 of 46 and PO2 of 83. Sodium levels at 136, serum bicarb is at 27, potassium is at 4.1. BUN 13 with a creatinine of 0.32. Remains comfortable in bed. Denies having any new complaints. Arrangements are being made for a home ventilator. I took the opportunity to switch this patient to an AVAPS mode of mechanical ventilator with a target volume of 450 cc. 08/01/2024, patient is on pressure support of 10 and PEEP of 5. He was placed on AVAPS with a tidal volume of 450 yesterday and the patient did not feel comfo rtable with that mode of mechanical ventilation. Doing well on pressure support. Otherwise, his condition is unchanged. His chest x-ray findings are essentially stable and unchanged. No significant respiratory secretions. He remains on TPN rate of 70, normal saline at rate of 75 and the fluid balance is +635 cc over the past 24 hours. Able to communicate. The white cell count is at 5.7 with a hemoglobin of 9 and a platelet count of 266. Sodium is at 134, potassium is at 3.8, bicarbonate of 26 with a BUN of 13 and a creatinine of 0.29. Afebrile. Ileostomy output is noted and remains considerably high. On 08/02/2024, the patient is being seen for a follow-up. After being on pressure support mode of mechanical ventilation yesterday, this morning the patient was placed on a T-piece. He is alternating between a T-piece and pressure support mode of mechanical ventilation. No new complaints. The patient has completed his course o of antibiotics utilizing Zerbaxa and is currently afebrile. Chest x-ray findings are unchanged. He has a #6 Shiley extra long tracheostomy tube. Normal saline at rate of 75 cc an hour. Remains on TPN at rate of 70 cc an hour. Labs are stable. White cell count is at 5.7 with a hemoglobin 9.6. Sodium is 136, BUN is 14 with a creatinine of 0.29. No significant orotracheal secretions. Objective - Vital Signs Vital signs: Vital Signs Temp 98.3 F 08/02/24 04:00 Pulse 90 08/02/24 08:21 Resp 15 08/02/24 07:00 BP 106/39 07/31/24 14:00 Pulse Ox 97 08/02/24 07:00 FiO2 28 08/02/24 08:21 Intake & Output 08/01/24 08/02/24 08/02/24 18:59 06:59 18:59 Intake Total 1740 1840 435 Output Total 1525 1825 380 Balance 215 15 55 Weight 91.1 kg Intake: IV 900 1000 225 Magnesium Sulfate-D5w Pmx 100 1 gm In Dextrose/Water 1 100ml.bag @ 100 mls/hr IVPB Q1H ANNIE Rx#: [id number] Sodium Chloride 0.9% 1, 900 900 225 000 ml @ 75 mls/hr IV . [id number] ANNIE Rx#:[id number] TPN/PPN 840 840 210 Mvi, Adult No.4 with Vit 840 840 210 K 10 ml Trace (Conc-1Ml/ Dose) 1 ml Sodium Chloride 4Meq/ml Vial 64 meq Calcium Gluconate 1 gm Magnesium Sulfate gm 1 .25 gm Sodium Phosphate 21 mmol Potassium Acetate 34 meq In Amino Acids 5 %/Dextrose 20 % 1,000 ml @ 70 mls/hr IV .BY DURATION ANNIE Rx#: [id number] Output: Urine 1525 1125 380 Stool 700 Other: Voiding Method Indwelling Catheter Indwelling Catheter ABP, PAP, CO, CI - Last Documented Arterial Blood Pressure 125/57 - Exam GENERAL EXAM: Awake, alert 49-year-old male patient, off the mechanical ventilator on a 28% T-piece, comfortable, awake and communicating. HEAD: Normocephalic. EYES: Normal reaction of pupils, equal size. NOSE: Clear with pink turbinates. THROAT: Tracheostomy tube secured in place. No erythema or exudates. NECK: No masses, no JVD. CHEST: No chest wall deformity. LUNGS: Equal air entry with coarse rhonchi bilaterally. CVS: S1 and S2 normal with no audible murmur, regular rhythm. ABDOMEN: Enterocutaneous fistula over the abdominal wall. No hepatosplenomegaly, normal bowel sounds. SPINE: No scoliosis or deformity SKIN: No rashes CENTRAL NERVOUS SYSTEM: No focal deficits, tone is normal in all 4 extremities. EXTREMITIES: Extensive muscle atrophy. Contractures. There is no peripheral edema. No clubbing, no cyanosis. Peripheral pulses are intact. - Labs CBC & Chem 7: 08/02/24 04:10 08/02/24 04:10 Labs: Abnormal Lab Results - Last 24 Hours (Table) 08/02/24 08/02/24 Range/Units 04:10 04:10 RBC 3.94 L (4.40-5.60) 10*6/uL Hgb 9.6 L (13.0-17.0) g/dL Hct 33.1 L (39.6-50.0) % MCH 24.4 L (27.0-32.0) pg MCHC 29.0 L (32.0-37.0) g/dL Sodium 136 L (137-145) mmol/L Creatinine 0.29 L (0.66-1.25) mg/dL Glucose 106 H (74-99) mg/dL Assessment and Plan Plan: Acute on chronic hypoxemic and hypercapnic respiratory failure, mainly secondary to recurrent mucous plugging. The patient has had multiple bronchoscopies with BAL with the most recent July 07, 2024. The culture at that time was positive for Pseudomonas aeruginosa and the repeat cultures from the sputum on 07/20/2024 still showing Pseudomonas aeruginosa and a chest x-ray from 07/27/2024 showing some atelectatic changes in lung bases bilaterally. The patient completed course of ceftolozane tazobactam. Afebrile. No significant leukocytosis. Respiratory secretions are scant The patient has profound neuromuscular weakness, contributing to the respiratory failure. Respiratory secretions are scant. Did not tolerate T-piece for extended period of time. He is still trying to go back and forth between PSV in the T-piece. He did not tolerate AVAPS mode. I believe he would ultimately failed a T-piece and he will need long-term vent support and PSV mode seems to be quite adequate for this patient. History of recurrent ventilator dependent respiratory failure, secondary to pneumonia and mucous plugging, improved. 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 History of sepsis, secondary to pneumonia Crohn's disease, with previous bowel perforation, status post colectomy and diverting ileostomy Tracheobronchomalacia History of DVT History of CVA/TIA Right below the knee amputation History of asystole/cardiac arrest, 2021 Plan: Patient will likely need long-term vent support. Will keep the patient on T- piece. However, it is quite obvious that the patient will fail after several hours and he will be placed back on PSV of 10 and a PEEP of 5 which he tolerates reasonably well. Arrange home ventilator Chest x-ray findings are unchanged The patient completed the course of Zerbaxa, completed his 10-day course of treatment today, being considered for nebulized tobramycin on outpatient basis. The tracheostomy tube may need to be exchanged and replaced prior to his discharge. Remains on TPN and lipids for nutritional support Remains on therapeutic Lovenox Continue bronchodilators Continue frequent suctioning as necessary Remains on scopolamine patch We will continue to follow Working with case management regarding placement issues as the patient has significant social barriers for discharge. He will need a home ventilator at time of discharge. Critical care evaluation that was done at 33 minutes. Time with Patient: Greater than 30
--- NOTE | 2024-08-02 14:58 | P.PN ---
Subjective Progress Note Date: 08/02/24 Principal diagnosis: Reason for follow-up is sepsis and pneumonia Patient is a 49-year-old male with multiple comorbidities including Crohn's disease status post colectomy diverting ileostomy tracheobronchomalacia CVA TIA cardiac arrest and history of recurrent pneumonias secondary to mucous plugging patient was recently discharged from this facility has been brought back to the hospital concerning for increasing shortness of breath and hypoxemia, patient did have worsening respiratory status requiring intubation and admission to the ICU subsequently transition to trach collar on 07/26/2024 On today's evaluation that is 08/02/2024,the patient remains to be afebrile, patient is on trach collar 28% supplemental oxygen and denies any shortness of breath no chest pain or any worsening cough.Patient denies having any nausea or abdominal pain. Patient white count is 5.71 creatinine 0.29 blood culture negative Objective - Vital Signs Vital signs: Vital Signs Temp 98.7 F 08/02/24 12:00 Pulse 96 08/02/24 13:00 Resp 08/02/24 13:00 BP 106/39 07/31/24 14:00 Pulse Ox 99 08/02/24 13:00 FiO2 08/02/24 12:00 Intake & Output 08/01/24 08/02/24 08/02/24 18:59 06:59 18:59 Intake Total 1740 1840 725 Output Total 1525 1825 605 Balance 215 15 120 Weight 91.1 kg Intake: IV 900 1000 375 Magnesium Sulfate-D5w Pmx 100 1 gm In Dextrose/Water 1 100ml.bag @ 100 mls/hr IVPB Q1H ANNIE Rx#: [id number] Sodium Chloride 0.9% 1, 900 900 375 000 ml @ 75 mls/hr IV . [id number] ANNIE Rx#:[id number] TPN/PPN 840 840 350 Mvi, Adult No.4 with Vit 840 840 350 K 10 ml Trace (Conc-1Ml/ Dose) 1 ml Sodium Chloride 4Meq/ml Vial 64 meq Calcium Gluconate 1 gm Magnesium Sulfate gm 1 .25 gm Sodium Phosphate 21 mmol Potassium Acetate 34 meq In Amino Acids 5 %/Dextrose 20 % 1,000 ml @ 70 mls/hr IV .BY DURATION ANNIE Rx#: [id number] Output: Urine 1525 1125 605 Stool 700 Other: Voiding Method Indwelling Catheter Indwelling Catheter Indwelling Catheter ABP, PAP, CO, CI - Last Documented Arterial Blood Pressure 177/83 - Exam GENERAL DESCRIPTION: Middle-age male lying in bed in no distress RESPIRATORY SYSTEM: Unlabored breathing , decreased breath sounds at bases HEART: S1 S2 regular rate and rhythm , ABDOMEN: Soft , no tenderness EXTREMITIES: Some swelling to the leg but no redness - Labs CBC & Chem 7: 08/02/24 04:10 08/02/24 04:10 Labs: Abnormal Lab Results - Last 24 Hours (Table) 08/02/24 08/02/24 Range/Units 04:10 04:10 RBC 3.94 L (4.40-5.60) 10*6/uL Hgb 9.6 L (13.0-17.0) g/dL Hct 33.1 L (39.6-50.0) % MCH 24.4 L (27.0-32.0) pg MCHC 29.0 L (32.0-37.0) g/dL Sodium 136 L (137-145) mmol/L Creatinine 0.29 L (0.66-1.25) mg/dL Glucose 106 H (74-99) mg/dL Assessment and Plan (1) Pneumonia Current Visit: No Status: Acute Code(s): J18.9 - PNEUMONIA, UNSPECIFIED ORGANISM SNOMED Code(s): 235983841 (2) Sepsis Current Visit: No Status: Acute Code(s): A41.9 - SEPSIS, UNSPECIFIED ORGANISM SNOMED Code(s): 62947481 Plan: 1patient with sepsis in this patient who did have fever tachycardia elevated white count meeting currently for SIRS source is likely pneumonia etiology could be mucous plugging and inadequate suction in the outpatient setting plus minus a catheter associated as a patient also significantly positive UA. 2sputum culture has been requested which are currently growing Pseudomonas sensitivities pending urine culture have been negative blood culture so far negative 3patient sputum positive for Pseudomonas now resistant to Avycaz. 4patient is afebrile white count has been normal has received 10-day course of Zerbaxa which she completed on 08/01/2024 will monitor closely off antibiotic therapy mother at the bedside, question concern answered Dictation was produced using [employer] software. please excuse any grammatical, word or spelling errors. Time with Patient: Less than 30
--- NOTE | 2024-08-02 17:21 | PN ---
PROGRESS NOTE DATE OF SERVICE: 08/02/2024 HISTORY OF PRESENT ILLNESS: This is a 49-year-old gentleman, who was admitted with [id number] hypoxic respiratory failure with tracheostomy. He is on mechanical ventilation. The patient has also had recurrent Pseudomonas infection. Home vent is being planned as well as inhalation tobramycin also. PAST MEDICAL HISTORY: Reviewed. REVIEW OF SYSTEMS: Could not be taken. CURRENT MEDICATIONS: Reviewed. PHYSICAL EXAMINATION: VITAL SIGNS: Pulse is 85, blood pressure 139/56, and respirations 20. HEENT: Conjunctivae normal. NECK: Tracheostomy. CARDIOVASCULAR: S1 and S2. RESPIRATIONS: Few scattered rhonchi. ABDOMEN: Soft. NERVOUS SYSTEM: No focal deficit. LABORATORY DATA: Reviewed. ASSESSMENT: 1. [id number]-siukwmo hypoxic respiratory failure secondary to mucus plugging. 2. Recurrent Pseudomonas pneumonia and aspiration pneumonia. 3. Hypotension, improved. 4. Urinary tract infection. 5. Crohn disease with ileostomy with significant immunosuppression. 6. Multiple complex medical issues. RECOMMENDATIONS: Continue current management and symptomatic treatment. Continue with maintaining adequate oxygenation and continue with antibiotics. Currently the patient is on TPN. Also, I recommend repeat labs and possible inhalation tobramycin. The patient and family teaching. Guarded prognosis. Further recommendations to follow. MMODL / IJN: [id number] /
--- NOTE | 2024-08-03 12:21 | P.PN ---
Subjective Progress Note Date: 08/03/24 Principal diagnosis: Acute on chronic hypoxic and hypercapnic respiratory failure secondary to recurrent mucous plugging and recurrent pneumonias. On 07/27/2024, the patient has been on a 28% trach collar for the past 24 hours. The patient was taken off the mechanical ventilator yesterday. Chest x-ray from today shows smaller lung volumes, some atelectatic changes lung base bilaterally along with that there is mild pulm vessel congestion and patchy left more than right bibasilar opacities related to atelectasis. Sputum samples positive for Pseudomonas aeruginosa and the patient is currently on ceftolozane/tazobactam. Patient is afebrile. The patient is on TPN for nutritional support. The patient ileostomy output was noted and remains quite high. Urine output is over 325 cc an hour. Fluid balance is -1.4 L over the past 24 hours and the patient has a #6 XLT Shiley tracheostomy tube in place. Arousable, able to communicate, profoundly weak and chronically debilitated. Blood work from today shows a white cell count of 6.9, hemoglobin 9.4, platelet of 200, BUN 50 with a creatinine of 0.34 and a sodium levels at 138 and a potassium level is at 4.1. On 07/28/2024, the patient is being seen for a follow-up. Earlier this morning, he complained of some increased shortness of breath and based on that the patient was placed back on a mechanical ventilator and is currently on a pressure support of 10 and a PEEP of 5 with an FiO2 of 45%. Blood gas showed a pH of 7.3 with a pCO2 of 52 and pO2 of 75. Chest x-ray findings are unchanged and the patient has some limited infiltration and atelectasis in the lung base bilaterally. Respiratory secretions are scant. He is having increased coughing. He remains on TPN for additional support rate of 70. He is also on normal saline at rate of 75 cc an hour. Ileostomy output is 1 L. This was obtained over the past 12 hours. Fluid balance is -1.4 L over the past 24 hours. Remains profoundly weak. Awake and alert and communicating. The white cell count at 6.7 with a hemoglobin 9.5 and a platelet count of 250. BUN is 14 with a creatinine of 0.3. Sodium is at 138 and a potassium level is at 4.1. On 07/29/2024, the patient is back and forth between a 28% T-piece and a PSV mode of mechanical ventilation. This morning, the patient is on a PSV of 10 and a PEEP of 5. Blood gas showed a pH of 7.34 with a PCO2 of 48 and PO2 of 88. The patient is calm and comfortable. Chest x-ray findings are unchanged and the patient remains on ceftolozane/tazobactam per IDs recommendations. No fever no chills. Remains on TPN for nutritional support running at 70 cc an hour. Remains on normal saline at 75 cc an hour. Ostomy output has been 500 cc per shift. Hemodynamically stable. Communicating. White cell count of 5.5 with a hemoglobin 9.6 and a platelet count of 202. Sodium is at 136, potassium low at 3.6, BUN is 12 with a creatinine of 0.32. No other significant events overnight. 07/30/2024, patient is on a pressure support of 10 and a PEEP of 5 and his condition remains unchanged. Continues to alternate between pressure support and a T-piece. Blood gases this morning showed a pH of 7.34 with a [id number] and PO2 of 83. Completing his last dose of Zerbaxa for pseudomonal pneumonia. He is on TPN at rate of 72 cc an hour. Normal saline rate of 75 cc an hour. Ileostomy output was half a liter over the past 8 hours. Hemodynamically stable. Afebrile. Able to communicate. The white cell count is 6 with a hemoglobin 9.4 and platelet count 217. BUN is 40 with a creatinine of 0.3 and a sodium level at 137. No other significant events overnight. On 07/31/2024, the patient is being seen for a follow-up. The patient remains on a mechanical ventilator with a PSV of 10 and a PEEP of 5. Remains on TPN at rate of 70, remains on normal saline at rate of 75 and ileostomy output is noted of 1 L every shift. Clinically unchanged over the past 3 days. The white cell count is at 6 with a hemoglobin 9.3 and a platelet count of 52. Chest x-ray shows no significant change compared to yesterday and the patient completed his course of antibiotics with Zerbaxa. Most recent blood gases while being on PSV showed a pH of 7.34 with a PCO2 of 46 and PO2 of 83. Sodium levels at 136, serum bicarb is at 27, potassium is at 4.1. BUN 13 with a creatinine of 0.32. Remains comfortable in bed. Denies having any new complaints. Arrangements are being made for a home ventilator. I took the opportunity to switch this patient to an AVAPS mode of mechanical ventilator with a target volume of 450 cc. 08/01/2024, patient is on pressure support of 10 and PEEP of 5. He was placed on AVAPS with a tidal volume of 450 yesterday and the patient did not feel comfortable with that mode of mechanical ventilation. Doing well on pressure support. Otherwise, his condition is unchanged. His chest x-ray findings are essentially stable and unchanged. No significant respiratory secretions. He remains on TPN rate of 70, normal saline at rate of 75 and the fluid balance is +635 cc over the past 24 hours. Able to communicate. The white cell count is at 5.7 with a hemoglobin of 9 and a platelet count of 266. Sodium is at 134, potassium is at 3.8, bicarbonate of 26 with a BUN of 13 and a creatinine of 0.29. Afebrile. Ileostomy output is noted and remains considerably high. On 08/02/2024, the patient is being seen for a follow-up. After being on pressure support mode of mechanical ventilation yesterday, this morning the patient was placed on a T-piece. He is alternating between a T-piece and pressure support mode of mechanical ventilation. No new complaints. The patient has completed his course o of antibiotics utilizing Zerbaxa and is currently afebrile. Chest x-ray findings are unchanged. He has a #6 Shiley extra long tracheostomy tube. Normal saline at rate of 75 cc an hour. Remains on TPN at rate of 70 cc an hour. Labs are stable. White cell count is at 5.7 with a hemoglobin 9.6. Sodium is 136, BUN is 14 with a creatinine of 0.29. No significant orotracheal secretions. Patient was seen today on 08/03/2024, patient is on T-piece, at night he goes on mechanical ventilation, seems to be comfortable, not in any distress, patient finished his courses of antibiotics utilizing Zerbaxa he is afebrile, continues to have #6 Shiley extra long tracheostomy tube. Patient will likely be discharged home once ventilator is available, and he will need a home v entilator. WBC is 5.7 hemoglobin 9.6 electrolytes are normal renal profile is normal Objective - Vital Signs Vital signs: Vital Signs Temp 98.4 F 08/03/24 08:00 Pulse 84 08/03/24 12:12 Resp 35 H 08/03/24 11:00 BP 106/39 07/31/24 14:00 Pulse Ox 100 08/03/24 11:00 FiO2 28 08/03/24 09:00 Intake & Output 08/02/24 08/03/24 08/03/24 18:59 06:59 18:59 Intake Total 1740 425 580 Output Total 3350 4615 340 Balance -1610 -4190 240 Weight 90.8 kg Intake: IV 900 355 300 Mvi, Adult No.4 with Vit 280 K 10 ml Trace (Conc-1Ml/ Dose) 1 ml Sodium Chloride 4Meq/ml Vial 64 meq Calcium Gluconate 1 gm Magnesium Sulfate gm 1 .25 gm Sodium Phosphate 21 mmol Potassium Acetate 34 meq In Amino Acids 5 %/Dextrose 20 % 1,000 ml @ 70 mls/hr IV .BY DURATION [facility] Rx#: [id number] Sodium Chloride 0.9% 1, 900 75 300 000 ml @ 75 mls/hr IV . [id number] [facility] Rx#:[id number] TPN/PPN 840 70 280 Mvi, Adult No.4 with Vit 840 70 280 K 10 ml Trace (Conc-1Ml/ Dose) 1 ml Sodium Chloride 4Meq/ml Vial 64 meq Calcium Gluconate 1 gm Magnesium Sulfate gm 1 .25 gm Sodium Phosphate 21 mmol Potassium Acetate 34 meq In Amino Acids 5 %/Dextrose 20 % 1,000 ml @ 70 mls/hr IV .BY DURATION [facility] Rx#: [id number] Output: Urine 1350 815 340 Stool 2000 3800 Other: Voiding Method Indwelling Catheter Indwelling Catheter Indwelling Catheter ABP, PAP, CO, CI - Last Documented Arterial Blood Pressure 150/66 - Exam GENERAL EXAM: Awake, alert 49-year-old male patient, off the mechanical ventilator on a 28% T-piece, not in distress HEAD: Normocephalic. EYES: Normal reaction of pupils, equal size. NOSE: Clear with pink turbinates. THROAT: Tracheostomy tube secured in place. No erythema or exudates. NECK: No masses, no JVD. CHEST: No chest wall deformity. LUNGS: Equal air entry with coarse rhonchi bilaterally. CVS: S1 and S2 normal with no audible murmur, regular rhythm. ABDOMEN: Enterocutaneous fistula over the abdominal wall. No hepatosplenomegaly, normal bowel sounds. SPINE: No scoliosis or deformity SKIN: No rashes CENTRAL NERVOUS SYSTEM: No focal deficits, tone is normal in all 4 extremities. EXTREMITIES: Extensive muscle atrophy. Contractures. There is no peripheral edema. No clubbing, no cyanosis. Peripheral pulses are intact. - Labs CBC & Chem 7: 08/02/24 04:10 08/02/24 04:10 Assessment and Plan Assessment: Impression: Acute on chronic hypoxemic and hypercapnic respiratory failure, mainly secondary to mucous plugging. History of recurrent ventilator dependent respiratory failure, secondary to pneumonia and mucous plugging Tracheal stenosis History of sepsis, secondary to pneumonia Crohn's disease, with previous bowel perforation, status post colectomy and diverting ileostomy Tracheobronchomalacia History of DVT History of CVA/TIA Right below the knee amputation History of asystole/cardiac arrest, 2021 Plan: Continue present supportive care measures Continue patient on intermittent mechanical ventilation Continue enteral feeding/nutritional support Continue Lovenox Continue bronchodilators Continue scopolamine patch Still working on possibly sending the patient home with a ventilator. Overall long-term prognosis is extremely poor and guarded. Will continue to follow in the meantime Time with Patient: Less than 30
[2024-08-03 14:44] LABS: Basophils # (A) 0.04 10*3/uL (0.00-0.10); Basophils % (A) 0.6 %; Eosinophils # (A) 0.23 10*3/uL (0.04-0.35); Eosinophils % (A) 3.5 %; HCT 33.1 % (39.6-50.0); HGB 9.6 g/dL (13.0-17.0); Lymphocytes % (A) 24.3 %; MCH 24.4 pg (27.0-32.0); Monocytes # (A) 0.44 10*3/uL (0.20-1.00); Monocytes % (A) 6.7 %; Neutrophils # (A) 4.25 10*3/uL (1.80-7.70); Neutrophils % (A) 64.6 %; Platelet Count 284 10*3/uL (140-440); RBC 3.94 10*6/uL (4.40-5.60); RDW 16.2 % (11.5-14.5); WBC 6.58 10*3/uL (4.50-10.00)
[2024-08-03 14:47] LABS: Ionized Calcium 5.1 mg/dL (4.5-5.3)
[2024-08-03 14:55] LABS: ALT 39 U/L (4-49); AST 34 U/L (17-59); African American GFR (CKD) >90 (>60 ml/min/1.73 sqM); Albumin 3.2 g/dL (3.5-5.0); Alkaline Phosphatase 98 U/L (38-126); Anion Gap 6 mmol/L; Blood Urea Nitrogen 11 mg/dL (9-20); Calcium 9.2 mg/dL (8.4-10.2); Carbon Dioxide 30 mmol/L (22-30); Chloride 100 mmol/L (98-107); Glucose 105 mg/dL (74-99); Magnesium 1.8 mg/dL (1.6-2.3); Non-African American GFR(CKD) >90 (>60 ml/min/1.73 sqM); Phosphorus 2.8 mg/dL (2.5-4.5); Potassium 4.2 mmol/L (3.5-5.1); Sodium 136 mmol/L (137-145); Total Bilirubin 0.9 mg/dL (0.2-1.3); Total Protein 7.4 g/dL (6.3-8.2)
--- NOTE | 2024-08-03 15:19 | PN ---
PROGRESS NOTE DATE OF SERVICE: 08/03/2024 SUBJECTIVE: This is a 49-year-old gentleman, who was admitted with [id number] hypoxic respiratory failure, also being scheduled for home mechanical ventilation at this time. The family teaching is being contacted at this time. The patient is also probably candidate for nebulized tobramycin at home also. The patient is conscious, but on mechanical ventilation. PAST MEDICAL HISTORY: Reviewed. REVIEW OF SYSTEMS: Could not be taken. CURRENT MEDICATIONS: Reviewed. PHYSICAL EXAMINATION: VITAL SIGNS: Pulse is 80, blood pressure 130/66, and respirations 25. HEENT: Conjunctivae normal. NECK: Tracheostomy. CARDIOVASCULAR: S1 and S2. RESPIRATIONS: No wheeze. Few scattered rhonchi. ABDOMEN: Soft and nontender. NERVOUS SYSTEM: No focal deficit. LABORATORY DATA: Hemoglobin 9.6. ASSESSMENT: 1. Xtcog-wf-ruberkk hypoxic respiratory failure secondary to mucus plugging. 2. Recurrent Pseudomonas pneumonia and aspiration pneumonia. 3. Hypotension, improved. 4. Status post tracheostomy for home ventilation, mechanical ventilation. 5. Urinary tract infection. 6. Crohn disease with ileostomy and significant immunosuppression. 7. Multiple complex medical issues. RECOMMENDATIONS: Recommend to continue current management and repeat labs in the morning. Otherwise, monitor lytes closely. Continue the mechanical ventilation, teaching for the family to take care of the mechanical ventilation at home. Otherwise, arranged nebulized tobramycin per Infectious Disease. Prognosis is extremely guarded. Further recommendations to follow. See orders for details. MMODL / IJN: [id number] /
--- NOTE | 2024-08-03 16:40 | P.PN ---
Subjective Progress Note Date: 08/03/24 Principal diagnosis: Reason for follow-up is sepsis and pneumonia Patient is a 49-year-old male with multiple comorbidities including Crohn's disease status post colectomy diverting ileostomy tracheobronchomalacia CVA TIA cardiac arrest and history of recurrent pneumonias secondary to mucous plugging patient was recently discharged from this facility has been brought back to the hospital concerning for increasing shortness of breath and hypoxemia, patient did have worsening respiratory status requiring intubation and admission to the ICU subsequently transition to trach collar on 07/26/2024 On today's evaluation that is 08/03/2024, the patient continues to be afebrile, the patient is on 28% FiO2 and breathing comfortably, the Pt denies having any chest pain or worsening cough, the patient denies having any abdominal pain no vomiting no new symptoms. Patient did have white count 6.58 creatinine 0.32 blood culture negative Objective - Vital Signs Vital signs: Vital Signs Temp 98.7 F 08/03/24 12:00 Pulse 88 08/03/24 12:22 Resp 22 08/03/24 12:00 BP 106/39 07/31/24 14:00 Pulse Ox 100 08/03/24 12:00 FiO2 28 08/03/24 12:00 Intake & Output 08/02/24 08/03/24 08/03/24 18:59 06:59 18:59 Intake Total 1740 425 580 Output Total 3350 4615 340 Balance -1610 -4190 240 Weight 90.8 kg Intake: IV 900 355 300 Mvi, Adult No.4 with Vit 280 K 10 ml Trace (Conc-1Ml/ Dose) 1 ml Sodium Chloride 4Meq/ml Vial 64 meq Calcium Gluconate 1 gm Magnesium Sulfate gm 1 .25 gm Sodium Phosphate 21 mmol Potassium Acetate 34 meq In Amino Acids 5 %/Dextrose 20 % 1,000 ml @ 70 mls/hr IV .BY DURATION [facility] Rx#: [id number] Sodium Chloride 0.9% 1, 900 75 300 000 ml @ 75 mls/hr IV . [id number] [facility] Rx#:[id number] TPN/PPN 840 70 280 Mvi, Adult No.4 with Vit 840 70 280 K 10 ml Trace (Conc-1Ml/ Dose) 1 ml Sodium Chloride 4Meq/ml Vial 64 meq Calcium Gluconate 1 gm Magnesium Sulfate gm 1 .25 gm Sodium Phosphate 21 mmol Potassium Acetate 34 meq In Amino Acids 5 %/Dextrose 20 % 1,000 ml @ 70 mls/hr IV .BY DURATION [facility] Rx#: [id number] Output: Urine 1350 815 340 Stool 2000 3800 Other: Voiding Method Indwelling Catheter Indwelling Catheter Indwelling Catheter ABP, PAP, CO, CI - Last Documented Arterial Blood Pressure 143/62 - Exam GENERAL DESCRIPTION: Middle-age male lying in bed in no distress RESPIRATORY SYSTEM: Unlabored breathing , decreased breath sounds at bases HEART: S1 S2 regular rate and rhythm , ABDOMEN: Soft , no tenderness EXTREMITIES: Some swelling to the leg but no redness - Labs CBC & Chem 7: 08/03/24 14:25 08/03/24 14:25 Assessment and Plan (1) Pneumonia Current Visit: No Status: Acute Code(s): J18.9 - PNEUMONIA, UNSPECIFIED ORGANISM SNOMED Code(s): 304816547 (2) Sepsis Current Visit: No Status: Acute Code(s): A41.9 - SEPSIS, UNSPECIFIED ORGANISM SNOMED Code(s): 76815018 Plan: 1patient with sepsis in this patient who did have fever tachycardia elevated white count meeting currently for SIRS source is likely pneumonia etiology could be mucous plugging and inadequate suction in the outpatient setting plus minus a catheter associated as a patient also significantly positive UA. 2sputum culture has been requested which are currently growing Pseudomonas sensitivities pending urine culture have been negative blood culture so far n egative 3patient sputum positive for Pseudomonas resistant to Avycaz. 4patient is afebrile white count has been normal 5patient has received 10-day course of Zerbaxa which she completed on 08/01/2024 and is currently being monitored closely off antibiotic therapy also waiting for outpatient tobramycin inhalation solution arrangement to prevent recurrent pneumonia mother at the bedside, question concern answered Dictation was produced using [employer] dictation software. please excuse any grammatical, word or spelling errors.
[2024-08-04 04:57] VITALS: TEMP 99
[2024-08-04 08:41] LABS: ALT 36 U/L (4-49); AST 28 U/L (17-59); African American GFR (CKD) >90 (>60 ml/min/1.73 sqM); Albumin 3.2 g/dL (3.5-5.0); Alkaline Phosphatase 97 U/L (38-126); Anion Gap 4 mmol/L; Blood Urea Nitrogen 13 mg/dL (9-20); Calcium 8.9 mg/dL (8.4-10.2); Carbon Dioxide 29 mmol/L (22-30); Chloride 102 mmol/L (98-107); Glucose 124 mg/dL (74-99); Magnesium 1.8 mg/dL (1.6-2.3); Non-African American GFR(CKD) >90 (>60 ml/min/1.73 sqM); Potassium 4.5 mmol/L (3.5-5.1); Sodium 135 mmol/L (137-145); Total Bilirubin 0.9 mg/dL (0.2-1.3); Total Protein 7.2 g/dL (6.3-8.2)
[2024-08-04 11:38] VITALS: PULSE 89; RESP 13
--- NOTE | 2024-08-04 13:25 | P.PN ---
Subjective Progress Note Date: 08/04/24 Principal diagnosis: Acute on chronic hypoxic and hypercapnic respiratory failure secondary to recurrent mucous plugging and recurrent pneumonias. On 07/27/2024, the patient has been on a 28% trach collar for the past 24 hours. The patient was taken off the mechanical ventilator yesterday. Chest x-ray from today shows smaller lung volumes, some atelectatic changes lung base bilaterally along with that there is mild pulm vessel congestion and patchy left more than right bibasilar opacities related to atelectasis. Sputum samples positive for Pseudomonas aeruginosa and the patient is currently on ceftolozane/tazobactam. Patient is afebrile. The patient is on TPN for nutritional support. The patient ileostomy output was noted and remains quite high. Urine output is over 325 cc an hour. Fluid balance is -1.4 L over the past 24 hours and the patient has a #6 XLT Shiley tracheostomy tube in place. Arousable, able to communicate, profoundly weak and chronically debilitated. Blood work from today shows a white cell count of 6.9, hemoglobin 9.4, platelet of 200, BUN 50 with a creatinine of 0.34 and a sodium levels at 138 and a potassium level is at 4.1. On 07/28/2024, the patient is being seen for a follow-up. Earlier this morning, he complained of some increased shortness of breath and based on that the patient was placed back on a mechanical ventilator and is currently on a pressure support of 10 and a PEEP of 5 with an FiO2 of 45%. Blood gas showed a pH of 7.3 with a pCO2 of 52 and pO2 of 75. Chest x-ray findings are unchanged and the patient has some limited infiltration and atelectasis in the lung base bilaterally. Respiratory secretions are scant. He is having increased coughing. He remains on TPN for additional support rate of 70. He is also on normal saline at rate of 75 cc an hour. Ileostomy output is 1 L. This was obtained over the past 12 hours. Fluid balance is -1.4 L over the past 24 hours. Remains profoundly weak. Awake and alert and communicating. The white cell count at 6.7 with a hemoglobin 9.5 and a platelet count of 250. BUN is 14 with a creatinine of 0.3. Sodium is at 138 and a potassium level is at 4.1. On 07/29/2024, the patient is back and forth between a 28% T-piece and a PSV mode of mechanical ventilation. This morning, the patient is on a PSV of 10 and a PEEP of 5. Blood gas showed a pH of 7.34 with a PCO2 of 48 and PO2 of 88. The patient is calm and comfortable. Chest x-ray findings are unchanged and the patient remains on ceftolozane/tazobactam per IDs recommendations. No fever no chills. Remains on TPN for nutritional support running at 70 cc an hour. Remains on normal saline at 75 cc an hour. Ostomy output has been 500 cc per shift. Hemodynamically stable. Communicating. White cell count of 5.5 with a hemoglobin 9.6 and a platelet count of 202. Sodium is at 136, potassium low at 3.6, BUN is 12 with a creatinine of 0.32. No other significant events overnight. 07/30/2024, patient is on a pressure support of 10 and a PEEP of 5 and his condition remains unchanged. Continues to alternate between pressure support and a T-piece. Blood gases this morning showed a pH of 7.34 with a IVS368 and PO2 of 83. Completing his last dose of Zerbaxa for pseudomonal pneumonia. He is on TPN at rate of 72 cc an hour. Normal saline rate of 75 cc an hour. Ileostomy output was half a liter over the past 8 hours. Hemodynamically stable. Afebrile. Able to communicate. The white cell count is 6 with a hemoglobin 9.4 and platelet count 217. BUN is 40 with a creatinine of 0.3 and a sodium level at 137. No other significant events overnight. On 07/31/2024, the patient is being seen for a follow-up. The patient remains on a mechanical ventilator with a PSV of 10 and a PEEP of 5. Remains on TPN at rate of 70, remains on normal saline at rate of 75 and ileostomy output is noted of 1 L every shift. Clinically unchanged over the past 3 days. The white cell count is at 6 with a hemoglobin 9.3 and a platelet count of 52. Chest x-ray shows no significant change compared to yesterday and the patient completed his course of antibiotics with Zerbaxa. Most recent blood gases while being on PSV showed a pH of 7.34 with a PCO2 of 46 and PO2 of 83. Sodium levels at 136, serum bicarb is at 27, potassium is at 4.1. BUN 13 with a creatinine of 0.32. Remains comfortable in bed. Denies having any new complaints. Arrangements are being made for a home ventilator. I took the opportunity to switch this patient to an AVAPS mode of mechanical ventilator with a target volume of 450 cc. 08/01/2024, patient is on pressure support of 10 and PEEP of 5. He was placed on AVAPS with a tidal volume of 450 yesterday and the patient did not feel comfortable with that mode of mechanical ventilation. Doing well on pressure support. Otherwise, his condition is unchanged. His chest x-ray findings are essentially stable and unchanged. No significant respiratory secretions. He remains on TPN rate of 70, normal saline at rate of 75 and the fluid balance is +635 cc over the past 24 hours. Able to communicate. The white cell count is at 5.7 with a hemoglobin of 9 and a platelet count of 266. Sodium is at 134, potassium is at 3.8, bicarbonate of 26 with a BUN of 13 and a creatinine of 0.29. Afebrile. Ileostomy output is noted and remains considerably high. On 08/02/2024, the patient is being seen for a follow-up. After being on pressure support mode of mechanical ventilation yesterday, this morning the patient was placed on a T-piece. He is alternating between a T-piece and pressure support mode of mechanical ventilation. No new complaints. The patient has completed his course o of antibiotics utilizing Zerbaxa and is currently afebrile. Chest x-ray findings are unchanged. He has a #6 Shiley extra long tracheostomy tube. Normal saline at rate of 75 cc an hour. Remains on TPN at rate of 70 cc an hour. Labs are stable. White cell count is at 5.7 with a hemoglobin 9.6. Sodium is 136, BUN is 14 with a creatinine of 0.29. No significant orotracheal secretions. Patient was seen today on 08/03/2024, patient is on T-piece, at night he goes on mechanical ventilation, seems to be comfortable, not in any distress, patient finished his courses of antibiotics utilizing Zerbaxa he is afebrile, continues to have #6 Shiley extra long tracheostomy tube. Patient will likely be discharged home once ventilator is available, and he will need a home v entilator. WBC is 5.7 hemoglobin 9.6 electrolytes are normal renal profile is normal Patient was seen today on 08/04/2024, remains in the ICU on trach collar, patient has also set up at home, to be discharged home today on home ventilator. Patient is still requiring intermittently going on ventilation. Has home ventilator was felt to be the best approach to keep the patient out of the hospital for that frequently. Patient finished his full course of treatment with antibiotics, is afebrile, and overall the patient is doing well. Objective - Vital Signs Vital signs: Vital Signs Temp 99.0 F 08/04/24 04:00 Pulse 89 08/04/24 11:00 Resp 13 08/04/24 11:00 BP 106/39 07/31/24 14:00 Pulse Ox 99 08/04/24 11:00 FiO2 28 08/04/24 07:45 Intake & Output 08/03/24 08/04/24 08/04/24 18:59 06:59 18:59 Intake Total 3718 1570 855 Output Total 1040 1155 1000 Balance 2678 415 -145 Weight 90.2 kg Intake: IV 825 900 585 Mvi, Adult No.4 with Vit 210 K 10 ml Trace (Conc-1Ml/ Dose) 1 ml Sodium Chloride 4Meq/ml Vial 64 meq Calcium Gluconate 1 gm Magnesium Sulfate gm 1 .25 gm Sodium Phosphate 21 mmol Potassium Acetate 34 meq In Amino Acids 5 %/Dextrose 20 % 1,000 ml @ 70 mls/hr IV .BY DURATION [facility] Rx#: [id number] Sodium Chloride 0.9% 1, 825 900 375 000 ml @ 75 mls/hr IV . [id number] [facility] Rx#:[id number] Intake, IV Titration 2123 350 70 Amount Mvi, Adult No.4 with Vit 70 K 10 ml Trace (Conc-1Ml/ Dose) 1 ml Sodium Chloride 4Meq/ml Vial 64 meq Potassium Chloride 20 meq Calcium Gluconate 1 gm Magnesium Sulfate gm 1 gm Sodium Phosphate 18 mmol In Amino Acids 5 %/ Dextrose 20 % 1,000 ml @ 85 mls/hr IV .BY DURATION [facility] Rx#:[id number] Mvi, Adult No.4 with Vit 1067 K 10 ml Trace (Conc-1Ml/ Dose) 1 ml Sodium Chloride 4Meq/ml Vial 72 meq Calcium Gluconate 1 gm Magnesium Sulfate gm 2 gm Sodium Phosphate 21 mmol Potassium Acetate 34 meq In Amino Acids 5 %/ Dextrose 20 % 1,000 ml @ 70 mls/hr IV .BY DURATION [facility] Rx#:[id number] Sodium Chloride 4Meq/ml 1056 350 Vial 72 meq Calcium Gluconate 1 gm Magnesium Sulfate gm 2 gm Sodium Phosphate 21 mmol Potassium Acetate 34 meq In Amino Acids 5 %/ Dextrose 20 % 1,000 ml @ 70 mls/hr IV .BY DURATION [facility] Rx#:[id number] Oral 250 200 TPN/PPN 770 70 Mvi, Adult No.4 with Vit 770 70 K 10 ml Trace (Conc-1Ml/ Dose) 1 ml Sodium Chloride 4Meq/ml Vial 64 meq Calcium Gluconate 1 gm Magnesium Sulfate gm 1 .25 gm Sodium Phosphate 21 mmol Potassium Acetate 34 meq In Amino Acids 5 %/Dextrose 20 % 1,000 ml @ 70 mls/hr IV .BY DURATION [facility] Rx#: [id number] Output: Urine 1040 1155 700 Stool 300 Other: Voiding Method Indwelling Catheter Indwelling Catheter Indwelling Catheter ABP, PAP, CO, CI - Last Documented Arterial Blood Pressure 155/67 - Exam GENERAL EXAM: Awake, alert 49-year-old male patient, off the mechanical ventilator on a 28% T-piece, not in distress HEAD: Normocephalic. EYES: Normal reaction of pupils, equal size. NOSE: Clear with pink turbinates. THROAT: Tracheostomy tube secured in place. No erythema or exudates. NECK: No masses, no JVD. CHEST: No chest wall deformity. LUNGS: Equal air entry with coarse rhonchi bilaterally. CVS: S1 and S2 normal with no audible murmur, regular rhythm. ABDOMEN: Enterocutaneous fistula over the abdominal wall. No hepatosplenomegaly, normal bowel sounds. SPINE: No scoliosis or deformity SKIN: No rashes CENTRAL NERVOUS SYSTEM: No focal deficits, tone is normal in all 4 extremities. EXTREMITIES: Extensive muscle atrophy. Contractures. There is no peripheral edema. No clubbing, no cyanosis. Peripheral pulses are intact. - Labs CBC & Chem 7: 08/03/24 14:25 08/04/24 07:51 Labs: Abnormal Lab Results - Last 24 Hours (Table) 08/03/24 08/03/24 08/04/24 Range/Units 14:25 14:25 07:51 RBC 3.94 L (4.40-5.60) 10*6/uL Hgb 9.6 L (13.0-17.0) g/dL Hct 33.1 L (39.6-50.0) % MCH 24.4 L (27.0-32.0) pg MCHC 29.0 L (32.0-37.0) g/dL Sodium 136 L 135 L (137-145) mmol/L Creatinine 0.32 L 0.33 L (0.66-1.25) mg/dL Glucose 105 H 124 H (74-99) mg/dL Albumin 3.2 L 3.2 L (3.5-5.0) g/dL Assessment and Plan Assessment: Impression: Acute on chronic hypoxemic and hypercapnic respiratory failure, mainly secondary to mucous plugging. History of recurrent ventilator dependent respiratory failure, secondary to pneumonia and mucous plugging Tracheal stenosis History of sepsis, secondary to pneumonia Crohn's disease, with previous bowel perforation, status post colectomy and diverting ileostomy Tracheobronchomalacia History of DVT History of CVA/TIA Right below the knee amputation History of asystole/cardiac arrest, 2021 Plan: Discharge planning is in progress most likely the patient will go home today with home ventilator. Continue bronchodilators Continue scopolamine patch Overall prognosis and long-term prognosis extremely poor and guarded. Cleared for discharge today Time with Patient: Less than 30
--- NOTE | 2024-08-04 13:47 | P.PN ---
Subjective Progress Note Date: 08/04/24 Principal diagnosis: Reason for follow-up is sepsis and pneumonia Patient is a 49-year-old male with multiple comorbidities including Crohn's disease status post colectomy diverting ileostomy tracheobronchomalacia CVA TIA cardiac arrest and history of recurrent pneumonias secondary to mucous plugging patient was recently discharged from this facility has been brought back to the hospital concerning for increasing shortness of breath and hypoxemia, patient did have worsening respiratory status requiring intubation and admission to the ICU subsequently transition to trach collar on 07/26/2024 On today's evaluation that is 08/04/2024, Patient is afebrile patient is currently on trach collar 28% FiO2 and denies having any shortness of breath, the patient denies any chest pain or worsening cough, the patient denies any nausea vomiting. Patient did have a creatinine of 0.23 no CBC was done today Objective - Vital Signs Vital signs: Vital Signs Temp 99.0 F 08/04/24 04:00 Pulse 89 08/04/24 11:00 Resp 13 08/04/24 11:00 BP 106/39 07/31/24 14:00 Pulse Ox 99 08/04/24 11:00 FiO2 28 08/04/24 07:45 Intake & Output 08/03/24 08/04/24 08/04/24 18:59 06:59 18:59 Intake Total 3718 1570 855 Output Total 1040 1155 1000 Balance 2678 415 -145 Weight 90.2 kg Intake: IV 825 900 585 Mvi, Adult No.4 with Vit 210 K 10 ml Trace (Conc-1Ml/ Dose) 1 ml Sodium Chloride 4Meq/ml Vial 64 meq Calcium Gluconate 1 gm Magnesium Sulfate gm 1 .25 gm Sodium Phosphate 21 mmol Potassium Acetate 34 meq In Amino Acids 5 %/Dextrose 20 % 1,000 ml @ 70 mls/hr IV .BY DURATION [facility] Rx#: [id number] Sodium Chloride 0.9% 1, 825 900 375 000 ml @ 75 mls/hr IV . [id number] [facility] Rx#:[id number] Intake, IV Titration 2123 350 70 Amount Mvi, Adult No.4 with Vit 70 K 10 ml Trace (Conc-1Ml/ Dose) 1 ml Sodium Chloride 4Meq/ml Vial 64 meq Potassium Chloride 20 meq Calcium Gluconate 1 gm Magnesium Sulfate gm 1 gm Sodium Phosphate 18 mmol In Amino Acids 5 %/ Dextrose 20 % 1,000 ml @ 85 mls/hr IV .BY DURATION [facility] Rx#:[id number] Mvi, Adult No.4 with Vit 1067 K 10 ml Trace (Conc-1Ml/ Dose) 1 ml Sodium Chloride 4Meq/ml Vial 72 meq Calcium Gluconate 1 gm Magnesium Sulfate gm 2 gm Sodium Phosphate 21 mmol Potassium Acetate 34 meq In Amino Acids 5 %/ Dextrose 20 % 1,000 ml @ 70 mls/hr IV .BY DURATION [facility] Rx#:[id number] Sodium Chloride 4Meq/ml 1056 350 Vial 72 meq Calcium Gluconate 1 gm Magnesium Sulfate gm 2 gm Sodium Phosphate 21 mmol Potassium Acetate 34 meq In Amino Acids 5 %/ Dextrose 20 % 1,000 ml @ 70 mls/hr IV .BY DURATION [facility] Rx#:[id number] Oral 250 200 TPN/PPN 770 70 Mvi, Adult No.4 with Vit 770 70 K 10 ml Trace (Conc-1Ml/ Dose) 1 ml Sodium Chloride 4Meq/ml Vial 64 meq Calcium Gluconate 1 gm Magnesium Sulfate gm 1 .25 gm Sodium Phosphate 21 mmol Potassium Acetate 34 meq In Amino Acids 5 %/Dextrose 20 % 1,000 ml @ 70 mls/hr IV .BY DURATION [facility] Rx#: [id number] Output: Urine 1040 1155 700 Stool 300 Other: Voiding Method Indwelling Catheter Indwelling Catheter Indwelling Catheter ABP, PAP, CO, CI - Last Documented Arterial Blood Pressure 155/67 - Exam GENERAL DESCRIPTION: Middle-age male lying in bed in no distress RESPIRATORY SYSTEM: Unlabored breathing , decreased breath sounds at bases HEART: S1 S2 regular rate and rhythm , ABDOMEN: Soft , no tenderness EXTREMITIES: Some swelling to the leg but no redness - Labs CBC & Chem 7: 08/03/24 14:25 08/04/24 07:51 Labs: Abnormal Lab Results - Last 24 Hours (Table) 08/03/24 08/03/24 08/04/24 Range/Units 14:25 14:25 07:51 RBC 3.94 L (4.40-5.60) 10*6/uL Hgb 9.6 L (13.0-17.0) g/dL Hct 33.1 L (39.6-50.0) % MCH 24.4 L (27.0-32.0) pg MCHC 29.0 L (32.0-37.0) g/dL Sodium 136 L 135 L (137-145) mmol/L Creatinine 0.32 L 0.33 L (0.66-1.25) mg/dL Glucose 105 H 124 H (74-99) mg/dL Albumin 3.2 L 3.2 L (3.5-5.0) g/dL Assessment and Plan (1) Pneumonia Status: Acute Code(s): J18.9 - PNEUMONIA, UNSPECIFIED ORGANISM SNOMED Code (s): 340154241 (2) Sepsis Status: Acute Code(s): A41.9 - SEPSIS, UNSPECIFIED ORGANISM SNOMED Code(s): 22115353 Plan: 1patient with sepsis in this patient who did have fever tachycardia elevated white count meeting currently for SIRS source is likely pneumonia etiology could be mucous plugging and inadequate suction in the outpatient setting plus minus a catheter associated as a patient also significantly positive UA. 2sputum culture has been requested which are currently growing Pseudomonas sensitivities pending urine culture have been negative blood culture so far negative 3patient sputum positive for Pseudomonas resistant to Avycaz. 4patient is afebrile white count has been normal 5patient has received 10-day course of Zerbaxa which she completed on 08/01/2024 and no need for systemic antibiotics on discharge currently waiting for outpatient arrangement for tobramycin inhalation 300 mg twice daily for 28 days on 28 days off hopefully that will prevent recurrent pseudomonal pneumonia Dictation was produced using [employer] dictation software. please excuse any grammatical, word or spelling errors. Time with Patient: Less than 30
--- NOTE | 2024-08-05 09:45 | P.DS ---
Providers Date of admission: 07/19/24 21:18 Expected date of discharge: 08/04/24 Attending physician: Torsten De La Rosa MD Consults: 07/18/24 16:25 Consult Physician Urgent Consulting Provider: Estrella Ho Consult Reason/Comments: acute hypoxia Do you want consulting provider notified?: Already Contacted 07/20/24 05:20 Consult Physician Urgent Consulting Provider: Chanel Uriostegui Consult Reason/Comments: sepsis Do you want consulting provider notified?: Yes Primary care physician: Kailee Rose DO Hospital Course: Final diagnosis - Acute on chronic hypoxemic and hypercapnic respiratory failure, mainly secondary to mucous plugging. Maintained on mechanical vent and ventilator is being delivered to the home with vent training - Prolonged hospital stay and vent dependency - Hypotension with concern for sepsis - Urinary tract infection, POA. Negative urine culture. - Pseudomonas pneumonia history likely a colonizer; repeat sputum remains with Pseudomonas - Crohn's disease with ileostomy in the past patient is presently on TPN - Right sided otitis media resolved - Tracheobronchomalacia - CVA TIA - History of DVT -Obesity with a BMI of 30.2 - Chronic medical debility with contractures of hands bilaterally - Hx of right BKA GI prophylaxis DVT prophylaxis Full code Discharge disposition Patient is being discharged in a stable condition with guarded prognosis to home. Patient will follow-up with in the outpatient setting upon discharge. Patient is to continue with ventilator support with show the medical as scheduled. Total time taken is greater than 35 minutes. Hospital course This is a 49-year-old male who was recently admitted with acute on chronic hypoxic respiratory failure with continuous mucous plugging maintained on mechanical ventilation with a tracheostomy. Patient is now vent dependent and has had multiple hospitalizations including [facility] and has no remaining days. Patient attempted to go home with home care although became increasingly short of breath and resulted in another mucous plugging. Patient has no further [facility] at [facility] and will be going home with [facility], home care and a ventilator. Patient and family have received ventilator training and TPN is being arranged. Patient follows with a visiting physician and will continue to do so in the outpatient setting. TPN adjustments as well as ventilator adjustments should be addressed through this primary care provider in the outpatient setting. Social work has arranged for discharge planning and will be going home today. Currently no reports of chest pain, no worsening shortness of breath, or palpitations. Patient is afebrile. No reports of nausea or vomiting and patient is tolerating diet. Strongly recommend aspiration precautions with head of the bed elevated 45 degrees at all times. Patient will be going to discharged home today. Extremely guarded prognosis and high risk for readmissions given significant comorbidities. Patient has had multiple hospitalizations. Patient has been cleared by other consultations for discharge. Please refer to other consultation notes for further HPI. Continuing to await insurance authorization for tobramycin via inhalation per ID recommendations to prevent recurrent pneumonias and frequent mucous plugging. To continue following outpatient regarding authorization. Physical exam: Gen: This is a 49-year-old male who is awake, alert and oriented x 3, well- developed, elderly appearing, ill-appearing, obese HEENT: Head is atraumatic, normocephalic. Pupils equal, round. Sclerae is anicteric. NECK: Supple. No JVD. No lymphadenopathy. No thyromegaly. LUNGS: Diminished breath sounds bilaterally with coarse scattered rhonchi noted. No intercostal retractions. HEART: S1, S2 are muffled ABDOMEN: Soft. Large ostomy noted bowel sounds are present. No masses. No tenderness. EXTREMITIES: No pedal edema. No calf tenderness. Significant muscle wasting and deterioration of upper and lower extremities NEUROLOGICAL: Patient is awake, alert and oriented x3. Diffusely weak and bedbound Please refer to medication reconciliation sheet for a list of medications. The impression and plan of care has been dictated by Alyssa Hernandez, Nurse Practitioner as directed. Dr. Gerry MD I have performed a history and examination and MDM of this patient, discussed the same with the dictator, and agree with the dictator's assessment and plan as written ,documented as a scribe. Based on total visit time, I have performed more than 50% of the visit. Patient Condition at Discharge: Fair Plan - Discharge Summary Discharge Rx Participant: No New Discharge Prescriptions: New Ipratropium-Albuterol Nebulize [Duoneb 0.5 mg-3 mg/3 ml Soln] 3 ml INHALATION RT-QID PRN each PRN Reason: Shortness Of Breath Or Wheezing Scopolamine 1 mg/72 Hr Patch [TransDerm Scop] 1 patch TRANSDERM Q72H #30 patch Ipratropium-Albuterol Nebulize [Duoneb 0.5 mg-3 mg/3 ml Soln] 3 ml INHALATION RT-QID #100 each Nystatin 100,000 Unit/gm Powd [Mycostatin Powder] 1 applic TOPICAL BID each Continue Pantoprazole [Protonix] 40 mg PO BID Folic Acid 1 mg PO DAILY HYDROcodone/APAP 5-325MG [[place] 5-325] 1 tab PO Q6H PRN PRN Reason: Pain Thiamine [Vitamin B-1] 100 mg PO DAILY Enoxaparin [Lovenox] 90 mg SQ Q12H Loperamide HCl [Imodium A-D] 4 mg PO TID busPIRone HCl [Buspar] 15 mg PO BID 30 Days #60 tab Discontinued Furosemide [Lasix] 20 mg PO DAILY 30 Days #30 tab Ciprofloxacin Ophth Soln [Cipro 0.3% Ophth Soln] 1 drops LEFT EYE Q4HR 5 Days #5 ml Discharge Medication List Pantoprazole [Protonix] 40 mg PO BID 07/07/22 [History] Enoxaparin [Lovenox] 90 mg SQ Q12H 06/19/24 [History] Folic Acid 1 mg PO DAILY 06/19/24 [History] Loperamide HCl [Imodium A-D] 4 mg PO TID 06/19/24 [History] Thiamine [Vitamin B-1] 100 mg PO DAILY 06/19/24 [History] busPIRone HCl [Buspar] 15 mg PO BID 30 Days #60 tab 07/14/24 [Rx] HYDROcodone/APAP 5-325MG [[place] 5-325] 1 tab PO Q6H PRN 07/17/24 [History] Ipratropium-Albuterol Nebulize [Duoneb 0.5 mg-3 mg/3 ml Soln] 3 ml INHALATION RT-QID #100 each 08/04/24 [Rx] Ipratropium-Albuterol Nebulize [Duoneb 0.5 mg-3 mg/3 ml Soln] 3 ml INHALATION RT-QID PRN each 08/04/24 [Rx] Nystatin 100,000 Unit/gm Powd [Mycostatin Powder] 1 applic TOPICAL BID each 08/04/24 [Rx] Scopolamine 1 mg/72 Hr Patch [TransDerm Scop] 1 patch TRANSDERM Q72H #30 patch 08/04/24 [Rx] Follow up Appointment(s)/Referral(s): Estrella Ho MD [STAFF PHYSICIAN] - 1 Week (Per patient he only does virtual visits, when calling Dr. Cabral office, office receptionist stated Medicare no longer accepts virtual visits ) [facility] [REFERRING] - 1 Week [facility] [place] [NON-STAFF] - 1 Week [facility] [NON-STAFF] - 1 Week Activity/Diet/Wound Care/Special Instructions: Patient is going home with home care and ventilator management Patient follows with visiting physicians outpatient Continue with current medications and management Continue TPN Strongly recommend aspiration precautions and head of the bed elevated 35 to 45 degrees at all times Discharge Disposition: HOME WITH HOME HEALTH SERVICES
== END 2024-08-04 12:31 | disposition home health service (06) | DRG 207 ==
LOC: EC 12:34 → 3SCARD 16:25 → 2SICU 07-19 20:10 → OBSVTOIN 07-19 21:18
PROVIDERS: ADMIT Internal Medicine; ATTEND Internal Medicine
PROC: 3E0436Z Introduction of Nutritional Substance into Central Vein, Percutaneous Approach (ICD-10-PCS; 2024-07-19)
PROC: 0BH18EZ Insertion of Endotracheal Airway into Trachea, Via Natural or Artificial Opening Endoscopic (ICD-10-PCS; 2024-07-20)
PROC: 05HF33Z Insertion of Infusion Device into Left Cephalic Vein, Percutaneous Approach (ICD-10-PCS; 2024-07-20)
PROC: 5A1955Z Respiratory Ventilation, Greater than 96 Consecutive Hours (ICD-10-PCS; 2024-07-20 14:05)
PROC: 04HY32Z Insertion of Monitoring Device into Lower Artery, Percutaneous Approach (ICD-10-PCS; principal; 2024-07-23)
PROC: 4A133B1 Monitoring of Arterial Pressure, Peripheral, Percutaneous Approach (ICD-10-PCS; 2024-07-23)
PROC: 4A133J1 Monitoring of Arterial Pulse, Peripheral, Percutaneous Approach (ICD-10-PCS; 2024-07-23)
PROC: 05HC33Z Insertion of Infusion Device into Left Basilic Vein, Percutaneous Approach (ICD-10-PCS; 2024-07-24)
DX: J96.21 Acute and chronic respiratory failure with hypoxia (principal); A41.9 Sepsis, unspecified organism; J15.1 Pneumonia due to Pseudomonas; J69.0 Pneumonitis due to inhalation of food and vomit; D84.9 Immunodeficiency, unspecified; T17.998A Other foreign object in respiratory tract, part unspecified causing other injury, initial encounter; I69.331 Monoplegia of upper limb following cerebral infarction affecting right dominant side; Z68.30 Body mass index [BMI] 30.0-30.9, adult; K50.90 Crohn's disease, unspecified, without complications; N39.0 Urinary tract infection, site not specified; Z16.24 Resistance to multiple antibiotics; J96.22 Acute and chronic respiratory failure with hypercapnia; I95.9 Hypotension, unspecified; J98.09 Other diseases of bronchus, not elsewhere classified; E66.9 Obesity, unspecified; R53.81 Other malaise; M24.542 Contracture, left hand; M24.541 Contracture, right hand; J39.8 Other specified diseases of upper respiratory tract; H66.91 Otitis media, unspecified, right ear; F41.9 Anxiety disorder, unspecified; Z93.1 Gastrostomy status; Z86.74 Personal history of sudden cardiac arrest; Z93.0 Tracheostomy status; Z89.511 Acquired absence of right leg below knee; Z99.11 Dependence on respirator [ventilator] status; Z88.8 Allergy status to other drugs, medicaments and biological substances; Z86.718 Personal history of other venous thrombosis and embolism; Z79.899 Other long term (current) drug therapy; Z88.1 Allergy status to other antibiotic agents; Z90.49 Acquired absence of other specified parts of digestive tract; Z87.891 Personal history of nicotine dependence
CPT/HCPCS: 36410; 36415; 71045; 76937; 80048; 80053; 80202; 81001; 82330; 82533; 82803; 82805; 83605; 83735; 84100; 84132; 84145; 84478; 84484; 85025; 85027; 87040; 87070; 87077; 87086; 87186; 87205; 93005; 94002; 94003; 94640; 96374; 99285

== ENCOUNTER 2024-08-19 14:22 | Emergency (ER) | payer OTHER, MEDICARE ==
[2024-08-19 14:31] VITALS: RESP 18
[2024-08-19 14:51] VITALS: TEMP 99.2
--- NOTE | 2024-08-19 15:10 | ED ---
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 Patient also has been trached because of multiple pneumonias. Patient comes in today because he is having increased secretions and some shortness of breath. Patient denies fever or chills. Patient denies any other issues at this time - Related Data Home Medications Medication Instructions Recorded Confirmed Pantoprazole [Protonix] 40 mg PO BID 07/07/22 08/19/24 Enoxaparin [Lovenox] 90 mg SQ Q12H 06/19/24 08/19/24 Folic Acid 1 mg PO DAILY 06/19/24 08/19/24 Loperamide HCl [Imodium A-D] 4 mg PO TID 06/19/24 08/19/24 Thiamine [Vitamin B-1] 100 mg PO DAILY 06/19/24 08/19/24 HYDROcodone/APAP 5-325MG [[place] 1 tab PO Q6H PRN 07/17/24 08/19/24 5-325] Amoxic-Pot Clav 875-125Mg 1 tab PO DIRECTED 08/19/24 08/19/24 [Augmentin 875-125] Previous Rx's Medication Instructions Recorded busPIRone HCl [Buspar] 15 mg PO BID 30 Days #60 tab 07/14/24 Ipratropium-Albuterol Nebulize 3 ml INHALATION RT-QID #100 each 08/04/24 [Duoneb 0.5 mg-3 mg/3 ml Soln] Ipratropium-Albuterol Nebulize 3 ml INHALATION RT-QID PRN each 08/04/24 [Duoneb 0.5 mg-3 mg/3 ml Soln] Nystatin 100,000 Unit/gm Powd 1 applic TOPICAL BID each 08/04/24 [Mycostatin Powder] Scopolamine 1 mg/72 Hr Patch 1 patch TRANSDERM Q72H #30 patch 08/04/24 [TransDerm Scop] Allergies Allergy/AdvReac Type Severity Reaction Status Date / Time piperacillin [From Zosyn] Allergy Rash/Hives Verified 08/19/24 15:46 tazobactam [From Zosyn] Allergy Rash/Hives Verified 08/19/24 15:46 Review of Systems ROS Statement: Those systems with pertinent positive or pertinent negative responses have been documented in the HPI. ROS Other: All systems not noted in ROS Statement are negative. Past Medical History Past Medical History: CVA/TIA, Deep Vein Thrombosis (DVT) Additional Past Medical History / Comment(s): Hx CVA in 2012, DVT R arm, Crohns. colostomy Bag placed in 09/2021. History of Any Multi-Drug Resistant Organisms: MRSA, Other MDRO Date of last positivie culture/infection: 07/20/24-Other MDRO; 12/14/23-MRSA MDRO Source:: Other MDRO - sputum, BAL; MRSA- nasal Past Surgical History: Bowel Resection, Cholecystectomy, Orthopedic Surgery Additional Past Surgical History / Comment(s): R BKA, trach with chronic home vent Past Anesthesia/Blood Transfusion Reactions: No Reported Reaction Additional Past Anesthesia/Blood Transfusion Reaction / Comment(s): recalled from previous admission Past Psychological History: No Psychological Hx Reported Smoking Status: Former smoker Past Alcohol Use History: None Reported Past Drug Use History: None Reported - Past Family History Father Additional Family Medical History / Comment(s): DAD IN HIS TWENTIES - CAUSE UNKNOWN. Mother Family Medical History: Diabetes Mellitus Brother(s) Family Medical History: Cancer Additional Family Medical History / Comment(s): Kidney cancer as a baby. General Exam - General Exam Comments Initial Comments: GENERAL: Patient is well-developed and well-nourished. Patient is nontoxic and well- hydrated and is in mild distress. ENT: Neck is soft and supple. Patient has a tracheostomy. Moist mucous membranes. Neck has full range of motion without eliciting any pain. EYES: The sclera were anicteric and conjunctiva were pink and moist. Extraocular movements were intact and pupils were equal round and reactive to light. Eyelids were unremarkable. PULMONARY: Difficult to hear clearly. CARDIOVASCULAR: There is a regular rate and rhythm without any murmurs gallops or rubs. ABDOMEN: Soft and nontender with normal bowel sounds. SKIN: Skin is clear with no lesions or rashes and otherwise unremarkable. NEUROLOGIC: Patient is alert and oriented x3. MUSCULOSKELETAL: Patient is unable to move any of his extremities patient has a BKA of the right LYMPHATICS: No significant lymphadenopathy is noted PSYCHIATRIC: Normal psychiatric evaluation. Limitations: physical limitation Course Vital Signs 08/19/24 08/19/24 08/19/24 14:23 14:31 14:50 Temperature 98.7 F 99.2 F Pulse Rate 101 H 102 H Respiratory 18 18 18 Rate Blood Pressure 127/80 125/74 O2 Sat by Pulse 96 97 Oximetry Fraction of Inspired Oxygen (FIO2) 08/19/24 08/19/24 15:17 17:54 Temperature Pulse Rate 94 Respiratory 18 Rate Blood Pressure 109/72 O2 Sat by Pulse 96 Oximetry Fraction of 35 Inspired Oxygen (FIO2) Medical Decision Making - Medical Decision Making EKG is interpreted by myself. EKG shows sinus tachycardia at 100 bpm DE is 148 QRS is 105 QT interval 339 QTc is 396. Patient's EKG shows no ST segment elevation or depression. Was pt. sent in by a medical professional or institution (, PA, FRONT END DEVELOPER, urgent care, hospital, or long term...) When possible be specific @ -No Did you speak to anyone other than the patient for history (EMS, parent, family, police, friend...)? What history was obtained from this source @ -No Did you review nursing and triage notes (agree or disagree)? Why? @ -I reviewed and agree with nursing and triage notes Were old charts reviewed (outside hosp., previous admission, EMS record, old EK G, old radiological studies, urgent care reports/EKG's, long term records)? Report findings @ -No old charts were reviewed Differential Diagnosis? @ -Differential Dyspnea: Coronary syndrome, arrhythmia, tamponade, asthma, COPD, pulmonary embolism, pneumonia, pneumothorax, pulmonary effusion, anaphylaxis, diabetic ketoacidosis, flailed chest, pulmonary contusion, diaphragmatic rupture, anemia, neuromuscular, this is not meant to be an all-inclusive list. EKG interpreted by me (3pts min.). @ -As above X-rays interpreted by me (1pt min.). @ -Chest x-ray shows no acute abnormality CT interpreted by me (1pt min.). @ -None done U/S interpreted by me (1pt. min.). @ -None done What testing was considered but not performed or refused? (CT, X-rays, U/S, labs)? Why? @ -None What meds were considered but not given or refused? Why? @ -None Did you discuss the management of the patient with other professionals (professionals i.e. , PA, FRONT END DEVELOPER, lab, RT, psych nurse, renal social worker, lawyer probate, teacher, assignment officer, case therapist)? Give summary @ -No Was smoking cessation discussed for >3mins.? @ -No Was critical care preformed (if so, how long)? @ -No Were there social determinants of health that impacted care today? How? (Homelessness, low income, unemployed, alcoholism, drug addiction, tra nsportation, low edu. Level, literacy, decrease access to med. care, [facility], rehab)? @ -No Was there de-escalation of care discussed even if they declined (Discuss DNR or withdrawal of care, Hospice)? DNR status @ -No What co-morbidities impacted this encounter? (DM, HTN, Smoking, COPD, CAD, Cancer, CVA, ARF, Chemo, Hep., AIDS, mental health diagnosis, sleep apnea, morbid obesity)? @ -Patient's lab values showed mildly elevated ALT but improved from previous visit 6 days ago. Patient's chest x-ray showed no acute abnormality. Respiratory therapist came down to suction the patient and no secretions came out at all. Patient has never been in any respiratory distress or any distress at all while in the emergency department. Patient did receive pain medication for chronic pain Was patient admitted / discharged? Hospital course, mention meds given and route, prescriptions, significant lab abnormalities, going to OR and other pertinent info. @ -Hospital course Undiagnosed new problem with uncertain prognosis? @ -No Drug Therapy requiring intensive monitoring for toxicity (Heparin, Nitro, Insulin, Cardizem)? @ -No Were any procedures done? @ -No Diagnosis/symptom? @ -Dyspnea Acute, or Chronic, or Acute on Chronic? @ -Acute Uncomplicated (without systemic symptoms) or Complicated (systemic symptoms)? @ -Complicated Side effects of treatment? @ -No Exacerbation, Progression, or Severe Exacerbation? @ -No Poses a threat to life or bodily function? How? (Chest pain, [place], OR, pneumonia, PE, COPD, DKA, ARF, appy, cholecystitis, CVA, Diverticulitis, Homicidal, Suicidal, threat to staff... and all critical care pts) @ -No - Lab Data Result diagrams: 08/19/24 15:35 08/19/24 15:35 Lab Results 08/19/24 08/19/24 08/19/24 Range/Units 15:15 15:35 15:35 WBC 7.87 (4.50-10.00) 10*3/uL RBC 5.36 (4.40-5.60) 10*6/uL Hgb 12.7 L (13.0-17.0) g/dL Hct 42.5 (39.6-50.0) % MCV 79.3 L (80.0-97.0) fL MCH 23.7 L (27.0-32.0) pg MCHC 29.9 L (32.0-37.0) g/dL Plt Count 211 (140-440) 10*3/uL Immature Gran % (Auto) 0.1 % Neutrophils % 64.2 % Lymphocytes % 26.6 % Monocytes % 7.0 % Eosinophils % 1.3 % Basophils % 0.8 % Immature Gran # 0.01 (0.00-0.04) 10*3/uL Neutrophils # 5.06 (1.80-7.70) 10*3/uL Lymphocytes # 2.09 (0.90-5.00) 10*3/uL Monocytes # 0.55 (0.20-1.00) 10*3/uL Eosinophils # 0.10 (0.04-0.35) 10*3/uL Basophils # 0.06 (0.00-0.10) 10*3/uL Immature Plt Fraction 8.7 H (1.1-6.1) % Sodium 133 L (137-145) mmol/L Potassium 3.7 (3.5-5.1) mmol/L Chloride 98 (98-107) mmol/L Carbon Dioxide 23 (22-30) mmol/L Anion Gap 12 mmol/L BUN 37 H (9-20) mg/dL Creatinine 0.38 L (0.66-1.25) mg/dL Est GFR (CKD-EPI)AfAm >90 (>60 ml/min/1.73 sqM) Est GFR (CKD-EPI)NonAf >90 (>60 ml/min/1.73 sqM) Glucose 128 H (74-99) mg/dL Plasma Lactic Acid [place] (0.7-2.0) mmol/L Calcium 10.8 H (8.4-10.2) mg/dL Magnesium 2.1 (1.6-2.3) mg/dL Total Bilirubin 1.5 H (0.2-1.3) mg/dL AST 42 (17-59) U/L ALT 78 H (4-49) U/L Alkaline Phosphatase 152 H (38-126) U/L Troponin I (0.000-0.034) ng/mL Total Protein 9.3 H (6.3-8.2) g/dL Albumin 4.2 (3.5-5.0) g/dL Urine Color Light Yellow Urine Appearance Clear (Clear) Urine pH 6.0 (5.0-8.0) Ur Specific [place] 1.021 (1.001-1.035) Urine Protein Negative (Negative) Urine Glucose (UA) Trace H (Negative) Urine Ketones Negative (Negative) Urine Blood Negative (Negative) Urine Nitrite Negative (Negative) Urine Bilirubin Negative (Negative) Urine Urobilinogen <2.0 (<2.0) mg/dL Ur Leukocyte Esterase Negative (Negative) 08/19/24 08/19/24 Range/Units 15:35 15:35 WBC (4.50-10.00) 10*3/uL RBC (4.40-5.60) 10*6/uL Hgb (13.0-17.0) g/dL Hct (39.6-50.0) % MCV (80.0-97.0) fL MCH (27.0-32.0) pg MCHC (32.0-37.0) g/dL Plt Count (140-440) 10*3/uL Immature Gran % (Auto) % Neutrophils % % Lymphocytes % % Monocytes % % Eosinophils % % Basophils % % Immature Gran # (0.00-0.04) 10*3/uL Neutrophils # (1.80-7.70) 10*3/uL Lymphocytes # (0.90-5.00) 10*3/uL Monocytes # (0.20-1.00) 10*3/uL Eosinophils # (0.04-0.35) 10*3/uL Basophils # (0.00-0.10) 10*3/uL Immature Plt Fraction (1.1-6.1) % Sodium (137-145) mmol/L Potassium (3.5-5.1) mmol/L Chloride (98-107) mmol/L Carbon Dioxide (22-30) mmol/L Anion Gap mmol/L BUN (9-20) mg/dL Creatinine (0.66-1.25) mg/dL Est GFR (CKD-EPI)AfAm (>60 ml/min/1.73 sqM) Est GFR (CKD-EPI)NonAf (>60 ml/min/1.73 sqM) Glucose (74-99) mg/dL Plasma Lactic Acid [place] 1.8 (0.7-2.0) mmol/L Calcium (8.4-10.2) mg/dL Magnesium (1.6-2.3) mg/dL Total Bilirubin (0.2-1.3) mg/dL AST (17-59) U/L ALT (4-49) U/L Alkaline Phosphatase (38-126) U/L Troponin I <0.012 (0.000-0.034) ng/mL Total Protein (6.3-8.2) g/dL Albumin (3.5-5.0) g/dL Urine Color Urine Appearance (Clear) Urine pH (5.0-8.0) Ur Specific [place] (1.001-1.035) Urine Protein (Negative) Urine Glucose (UA) (Negative) Urine Ketones (Negative) Urine Blood (Negative) Urine Nitrite (Negative) Urine Bilirubin (Negative) Urine Urobilinogen (<2.0) mg/dL Ur Leukocyte Esterase (Negative) Disposition Clinical Impression: Dyspnea, Dehydration Disposition: HOME SELF-CARE Condition: Good Instructions (If sedation given, give patient instructions): Dyspnea (ED) Is patient prescribed a controlled substance at d/c from ED?: No Referrals: None,Stated [Primary Care Provider] - 1-2 days Time of Disposition: 18:17
[2024-08-19 16:08] LABS: ALT 78 U/L (4-49); AST 42 U/L (17-59); African American GFR (CKD) >90 (>60 ml/min/1.73 sqM); Albumin 4.2 g/dL (3.5-5.0); Alkaline Phosphatase 152 U/L (38-126); Anion Gap 12 mmol/L; Blood Urea Nitrogen 37 mg/dL (9-20); Calcium 10.8 mg/dL (8.4-10.2); Carbon Dioxide 23 mmol/L (22-30); Chloride 98 mmol/L (98-107); Glucose 128 mg/dL (74-99); Magnesium 2.1 mg/dL (1.6-2.3); Non-African American GFR(CKD) >90 (>60 ml/min/1.73 sqM); Potassium 3.7 mmol/L (3.5-5.1); Sodium 133 mmol/L (137-145); Total Bilirubin 1.5 mg/dL (0.2-1.3); Total Protein 9.3 g/dL (6.3-8.2)
[2024-08-19 16:19] LABS: Appearance,Urine Clear (Clear); Bilirubin,Urine Negative (Negative); Blood,Urine Negative (Negative); Color,Urine Light Yellow; Glucose,Urine (UA) Trace (Negative); Ketones,Urine Negative (Negative); Leukocyte Esterase,Urine Negative (Negative); Nitrite,Urine Negative (Negative); Protein,Urine Negative (Negative); Specific Gravity,Urine 1.021 (1.001-1.035); Urobilinogen,Urine <2.0 mg/dL (<2.0)
--- NOTE | 2024-08-19 16:33 | XR ---
EXAMINATION TYPE: XR chest 2V DATE OF EXAM: 08/19/2024 4:26 PM COMPARISON: 08/02/2024 CLINICAL INDICATION: Male, 49 years old with history of difficulty breathing, TECHNIQUE: XR chest 2V view(s) obtained. FINDINGS: The heart size is normal. The pulmonary vasculature is normal. The lungs are clear. Tracheostomy is in the midline. Catheter is present on the left with the tip in the superior vena cav a region. IMPRESSION: 1. No acute pulmonary process. [facility], , 08/19/2024 4:30 PM
[2024-08-19] MEDS: HYDROmorphone 1 MG/ML 1 ML SYRINGE IVP STA ×2 (16:34→20:33)
[2024-08-19 17:06] LABS: Basophils # (A) 0.06 10*3/uL (0.00-0.10); Basophils % (A) 0.8 %; Eosinophils % (A) 1.3 %; HCT 42.5 % (39.6-50.0); HGB 12.7 g/dL (13.0-17.0); Immature Platelet Fraction 8.7 % (1.1-6.1); Lymphocytes # (A) 2.09 10*3/uL (0.90-5.00); Lymphocytes % (A) 26.6 %; MCH 23.7 pg (27.0-32.0); MCHC 29.9 g/dL (32.0-37.0); MCV 79.3 fL (80.0-97.0); Monocytes # (A) 0.55 10*3/uL (0.20-1.00); Neutrophils # (A) 5.06 10*3/uL (1.80-7.70); Neutrophils % (A) 64.2 %; Platelet Count 211 10*3/uL (140-440); RBC 5.36 10*6/uL (4.40-5.60); RDW 17.3 % (11.5-14.5); WBC 7.87 10*3/uL (4.50-10.00)
[2024-08-19] MEDS: SODIUM CHLORIDE 0.9% 1,000 ML IV ONE (17:54)
[2024-08-19 20:51] VITALS: BP 116/79; PULSE 78
== END 2024-08-19 20:51 | disposition home or self-care (01) ==
LOC: EC 14:22
DX: R06.02 Shortness of breath (principal); E86.0 Dehydration; R00.0 Tachycardia, unspecified; Z88.0 Allergy status to penicillin; Z88.8 Allergy status to other drugs, medicaments and biological substances; Z87.891 Personal history of nicotine dependence; Z86.73 Personal history of transient ischemic attack (TIA), and cerebral infarction without residual deficits
CPT/HCPCS: 36415; 93005; 80053; 83605; 83735; 84484; 85025; 81003; 87040; 71046; 99285; 96374; 96376; 96361; J1171

== ENCOUNTER 2024-08-28 11:02 | Emergency (ER) | payer OTHER, MEDICARE ==
[2024-08-28 11:16] VITALS: RESP 20
[2024-08-28] MEDS: MORPHINE SULFATE 4 MG/ML SYRINGE IVP STA (11:56)
--- NOTE | 2024-08-28 11:57 | ED ---
Recheck HPI - General Chief Complaint: Recheck/Abnormal Lab/Rx Stated Complaint: Abn labs Time Seen by Provider: 08/28/24 11:15 Source: patient, EMS, RN notes reviewed Mode of arrival: EMS Limitations: physical limitation - History of Present Illness Initial Comments: This is a 49-year-old male who presents to the emergency department for hyponatremia. Patient had lab work done 3 days ago and received a call saying that his sodium level was low. Other than his chronic pain he denies any new complaints. Patient has multiple comorbidities and is dependent on a tracheostomy, [place] catheter, and also has a right BKA. He denies any nausea/vomiting, confusion, chest pain, or shortness of breath. Denies any known history of hyponatremia in the past. MD Complaint: abnormal lab - Related Data Home Medications Medication Instructions Recorded Confirmed Pantoprazole [Protonix] 40 mg PO BID 07/07/22 08/19/24 Enoxaparin [Lovenox] 90 mg SQ Q12H 06/19/24 08/19/24 Folic Acid 1 mg PO DAILY 06/19/24 08/19/24 Loperamide HCl [Imodium A-D] 4 mg PO TID 06/19/24 08/19/24 Thiamine [Vitamin B-1] 100 mg PO DAILY 06/19/24 08/19/24 HYDROcodone/APAP 5-325MG [[place] 1 tab PO Q6H PRN 07/17/24 08/19/24 5-325] Amoxic-Pot Clav 875-125Mg 1 tab PO DIRECTED 08/19/24 08/19/24 [Augmentin 875-125] Previous Rx's Medication Instructions Recorded busPIRone HCl [Buspar] 15 mg PO BID 30 Days #60 tab 07/14/24 Ipratropium-Albuterol Nebulize 3 ml INHALATION RT-QID #100 each 08/04/24 [Duoneb 0.5 mg-3 mg/3 ml Soln] Ipratropium-Albuterol Nebulize 3 ml INHALATION RT-QID PRN each 08/04/24 [Duoneb 0.5 mg-3 mg/3 ml Soln] Nystatin 100,000 Unit/gm Powd 1 applic TOPICAL BID each 08/04/24 [Mycostatin Powder] Scopolamine 1 mg/72 Hr Patch 1 patch TRANSDERM Q72H #30 patch 08/04/24 [TransDerm Scop] Allergies Allergy/AdvReac Type Severity Reaction Status Date / Time piperacillin [From Zosyn] Allergy Rash/Hives Verified 08/28/24 11:09 tazobactam [From Zosyn] Allergy Rash/Hives Verified 08/28/24 11:09 Review of Systems ROS Statement: Those systems with pertinent positive or pertinent negative responses have been documented in the HPI. ROS Other: All systems not noted in ROS Statement are negative. Past Medical History Past Medical History: CVA/TIA, Deep Vein Thrombosis (DVT) Additional Past Medical History / Comment(s): Hx CVA in 2012, DVT R arm, Crohns. colostomy Bag placed in 09/2021. History of Any Multi-Drug Resistant Organisms: MRSA, Other MDRO Date of last positivie culture/infection: 07/20/24-Other MDRO; 12/14/23-MRSA MDRO Source:: Other MDRO - sputum, BAL; MRSA- nasal Past Surgical History: Bowel Resection, Cholecystectomy, Orthopedic Surgery Additional Past Surgical History / Comment(s): R BKA, trach with chronic home vent Past Anesthesia/Blood Transfusion Reactions: No Reported Reaction Additional Past Anesthesia/Blood Transfusion Reaction / Comment(s): recalled from previous admission Past Psychological History: No Psychological Hx Reported Smoking Status: Former smoker Past Alcohol Use History: None Reported Past Drug Use History: None Reported - Past Family History Father Additional Family Medical History / Comment(s): DAD IN HIS TWENTIES - CAUSE UNKNOWN. Mother Family Medical History: Diabetes Mellitus Brother(s) Family Medical History: Cancer Additional Family Medical History / Comment(s): Kidney cancer as a baby. General Exam Limitations: no limitations General appearance: alert, in no apparent distress Head exam: Present: atraumatic, normocephalic, normal inspection Respiratory exam: Absent: respiratory distress, wheezes, rales, rhonchi Cardiovascular Exam: Present: regular rate, normal rhythm Neurological exam: Present: alert, oriented X3 Psychiatric exam: Present: normal affect, normal mood Course Vital Signs 08/28/24 08/28/24 08/28/24 11:08 11:15 11:28 Temperature 98.3 F Pulse Rate 94 Respiratory 20 Rate Blood Pressure 107/69 O2 Sat by Pulse 99 Oximetry Fraction of 36 36 Inspired Oxygen (FIO2) 08/28/24 08/28/24 08/28/24 12:02 13:00 14:24 Temperature 98.0 F Pulse Rate 93 84 84 Respiratory 20 20 20 Rate Blood Pressure 116/64 99/69 114/70 O2 Sat by Pulse 100 98 99 Oximetry Fraction of Inspired Oxygen (FIO2) Medical Decision Making - Medical Decision Making This is a 49-year-old male who presents to the emergency department for hyponatremia. Was pt. sent in by a medical professional or institution? @ -No Did you speak to anyone other than the patient for history? @ -No Did you review nursing and triage notes? @ -I disagree with the triage note about elevated sodium, patient advised that it was low sodium. Were old charts reviewed? @ -No Differential Diagnosis? @ -Medication induced, dehydration, renal failure, hypothyroidism, this is not meant to be an all-inclusive list. EKG interpreted by me (3pts min.)? @ -EKG interpreted by me demonstrating the following: Sinus rhythm. Ventricular rate 91 bpm, SD interval 184 ms, QRS duration 113 ms, QTc 404 ms. X-rays interpreted by me (1pt min.)? @ -Not obtained CT interpreted by me (1pt min.)? @ -Not obtained U/S interpreted by me (1pt. min.)? @ -Not obtained What testing was considered but not performed? (CT, X-rays, U/S, labs)? Why? @ -None What meds were considered but not given? Why? @ -40 mEq of potassium chloride, however patient refused. Did you discuss the management of the patient with other professionals? @ -No Did you reconcile home meds? @ -No Was smoking cessation discussed for >3mins.? @ -No Was critical care preformed (if so, how long)? @ -No Were there social determinants of health that impacted care today? How? (Homel essness, low income, unemployed, alcoholism, drug addiction, transportation, low edu. Level, literacy, decrease access to med. care, [facility]p, rehab)? @ -No Was there de-escalation of care discussed even if they declined? (Discuss DNR or withdrawal of care, Hospice)? @ -No What co-morbidities impacted this encounter? (DM, HTN, Smoking, COPD, CAD, Can cer, CVA, Hep., AIDS, mental health diagnosis, sleep apnea, morbid obesity)? @ -Hx of CVA Was patient admitted / discharged? @ -Discharged. Lab work demonstrates mild hyponatremia with a sodium of 131. He also has mild hypokalemia with potassium of 3.4. Patient refused potassium replacement, as he did not want to consume it. Given his current sodium level, advised that it is not at a level that would necessitate hospitalization or further treatment at this time. Patient discharged home via EMS in stable condition. Case discussed with ED attending Dr. Mae. Return precautions reviewed in depth, the patient is instructed to return to the emergency department with any new, worsening, or concerning symptoms. Patient verbalized understanding. Undiagnosed new problem with uncertain prognosis? @ -None Drug Therapy requiring intensive monitoring for toxicity (Heparin, Nitro, Insulin, Cardizem)? @ -None Were any procedures done? @ -None Diagnosis/symptom? @ -Hypokalemia, hyponatremia Acute, or Chronic, or Acute on Chronic? @ -Acute Uncomplicated (without systemic symptoms) or Complicated (systemic symptoms)? @ -Uncomplicated Side effects of treatment? @ -None Exacerbation, Progression, or Severe Exacerbation] @ -Not applicable Poses a threat to life or bodily function? @ -No - Lab Data Result diagrams: 08/28/24 12:30 08/28/24 12:30 Lab Results 08/28/24 08/28/24 08/28/24 Range/Units 11:46 12:30 12:30 WBC 6.87 (4.50-10.00) 10*3/uL RBC 5.35 (4.40-5.60) 10*6/uL Hgb 12.6 L (13.0-17.0) g/dL Hct 41.8 (39.6-50.0) % MCV 78.1 L (80.0-97.0) fL MCH 23.6 L (27.0-32.0) pg MCHC 30.1 L (32.0-37.0) g/dL Plt Count 223 (140-440) 10*3/uL MPV 12.4 H (9.5-12.2) fL Immature Gran % (Auto) 0.3 % Neutrophils % 69.4 % Lymphocytes % 19.4 % Monocytes % 8.9 % Eosinophils % 1.3 % Basophils % 0.7 % Immature Gran # 0.02 (0.00-0.04) 10*3/uL Neutrophils # 4.77 (1.80-7.70) 10*3/uL Lymphocytes # 1.33 (0.90-5.00) 10*3/uL Monocytes # 0.61 (0.20-1.00) 10*3/uL Eosinophils # 0.09 (0.04-0.35) 10*3/uL Basophils # 0.05 (0.00-0.10) 10*3/uL Immature Plt Fraction 5.3 (1.1-6.1) % Sodium 131 L (137-145) mmol/L Potassium 3.4 L (3.5-5.1) mmol/L Chloride 99 (98-107) mmol/L Carbon Dioxide 20 L (22-30) mmol/L Anion Gap 12 mmol/L BUN 48 H (9-20) mg/dL Creatinine 0.43 L (0.66-1.25) mg/dL Est GFR (CKD-EPI)AfAm >90 (>60 ml/min/1.73 sqM) Est GFR (CKD-EPI)NonAf >90 (>60 ml/min/1.73 sqM) Glucose 106 H (74-99) mg/dL Calcium 11.3 H (8.4-10.2) mg/dL Phosphorus 3.0 (2.5-4.5) mg/dL Magnesium 2.2 (1.6-2.3) mg/dL Total Bilirubin 0.8 (0.2-1.3) mg/dL AST 38 (17-59) U/L ALT 100 H (4-49) U/L Alkaline Phosphatase 154 H (38-126) U/L Total Protein 8.3 H (6.3-8.2) g/dL Albumin 3.8 (3.5-5.0) g/dL Urine Color Colorless Urine Appearance Cloudy (Clear) Urine pH 6.0 (5.0-8.0) Ur Specific [place] 1.017 (1.001-1.035) Urine Protein Negative (Negative) Urine Glucose (UA) Negative (Negative) Urine Ketones Negative (Negative) Urine Blood Negative (Negative) Urine Nitrite Negative (Negative) Urine Bilirubin Negative (Negative) Urine Urobilinogen <2.0 (<2.0) mg/dL Ur Leukocyte Esterase Large H (Negative) Urine RBC <1 (0-5) /hpf Urine WBC 2 (0-5) /hpf Ur Squamous Epith Cells <1 (0-4) /hpf Urine Bacteria Rare H (None) /hpf Urine Mucus Rare H (None) /hpf Disposition Clinical Impression: Hypokalemia, Hyponatremia Disposition: HOME SELF-CARE Instructions (If sedation given, give patient instructions): Hypokalemia (ED) Additional Instructions: Return to the emergency department with any new, worsening, or concerning symptoms. Follow up with your primary care provider in 1-2 days. Is patient prescribed a controlled substance at d/c from ED?: No Referrals: Johnie Murcia MD [Primary Care Provider] - 1-2 days Time of Disposition: 13:27
[2024-08-28] MEDS: HYDROmorphone 1 MG/ML 1 ML SYRINGE IVP STA (12:01)
[2024-08-28 12:43] LABS: Basophils # (A) 0.05 10*3/uL (0.00-0.10); Basophils % (A) 0.7 %; Eosinophils # (A) 0.09 10*3/uL (0.04-0.35); Eosinophils % (A) 1.3 %; HCT 41.8 % (39.6-50.0); HGB 12.6 g/dL (13.0-17.0); Immature Platelet Fraction 5.3 % (1.1-6.1); Lymphocytes # (A) 1.33 10*3/uL (0.90-5.00); Lymphocytes % (A) 19.4 %; MCH 23.6 pg (27.0-32.0); MCHC 30.1 g/dL (32.0-37.0); MCV 78.1 fL (80.0-97.0); Mean Platelet Volume 12.4 fL (9.5-12.2); Monocytes # (A) 0.61 10*3/uL (0.20-1.00); Monocytes % (A) 8.9 %; Neutrophils # (A) 4.77 10*3/uL (1.80-7.70); Neutrophils % (A) 69.4 %; Platelet Count 223 10*3/uL (140-440); RBC 5.35 10*6/uL (4.40-5.60); RDW 17.7 % (11.5-14.5); WBC 6.87 10*3/uL (4.50-10.00)
[2024-08-28 12:44] LABS: Appearance,Urine Cloudy (Clear); Bacteria,Urine Rare /hpf; Bilirubin,Urine Negative (Negative); Blood,Urine Negative (Negative); Color,Urine Colorless; Glucose,Urine (UA) Negative (Negative); Ketones,Urine Negative (Negative); Leukocyte Esterase,Urine Large (Negative); Mucus,Urine Rare /hpf; Nitrite,Urine Negative (Negative); Protein,Urine Negative (Negative); RBC,Urine <1 /hpf (0-5); Specific Gravity,Urine 1.017 (1.001-1.035); Squamous Epithelial Cell,Urine <1 /hpf (0-4); Urobilinogen,Urine <2.0 mg/dL (<2.0); WBC,Urine 2 /hpf (0-5)
[2024-08-28 13:02] LABS: Albumin 3.8 g/dL (3.5-5.0); Chloride 99 mmol/L (98-107); Glucose 106 mg/dL (74-99); Total Protein 8.3 g/dL (6.3-8.2)
[2024-08-28 13:03] LABS: ALT 100 U/L (4-49); AST 38 U/L (17-59); African American GFR (CKD) >90 (>60 ml/min/1.73 sqM); Alkaline Phosphatase 154 U/L (38-126); Anion Gap 12 mmol/L; Blood Urea Nitrogen 48 mg/dL (9-20); Calcium 11.3 mg/dL (8.4-10.2); Carbon Dioxide 20 mmol/L (22-30); Magnesium 2.2 mg/dL (1.6-2.3); Non-African American GFR(CKD) >90 (>60 ml/min/1.73 sqM); Potassium 3.4 mmol/L (3.5-5.1); Sodium 131 mmol/L (137-145); Total Bilirubin 0.8 mg/dL (0.2-1.3)
[2024-08-28 13:10] VITALS: PULSE 84
[2024-08-28] MEDS: POTASSIUM CHLORIDE ER 20 MEQ TAB.ER PO STA (13:43)
[2024-08-28] MEDS: HYDROmorphone 0.5 MG/0.5 ML SYRINGE IVP STA (14:20)
[2024-08-28 14:25] VITALS: BP 114/70; TEMP 98
== END 2024-08-28 14:25 | disposition home or self-care (01) ==
LOC: EC 11:02
DX: E87.1 Hypo-osmolality and hyponatremia (principal); E87.6 Hypokalemia; Z86.73 Personal history of transient ischemic attack (TIA), and cerebral infarction without residual deficits; Z87.891 Personal history of nicotine dependence; Z88.0 Allergy status to penicillin; Z88.8 Allergy status to other drugs, medicaments and biological substances
CPT/HCPCS: 99284 ×2; 96374; 96376; 36415; 93005; 83930; 80053; 83735; 84100; 85025; 81001; 83935; J1171 ×2

== ENCOUNTER 2024-08-29 04:57 | Inpatient (IN) | payer OTHER, MEDICARE ==
--- NOTE | 2024-08-29 07:10 | XR ---
EXAMINATION TYPE: XR chest 1V DATE OF EXAM: 08/29/2024 6:05 AM COMPARISON: Chest radiographs from 08/19/2024 CLINICAL INDICATION: Male, 49 years old with history of difficulty breathing; [facility] TECHNIQUE: XR chest 1V Frontal view of the chest. FINDINGS: Lungs/Pleura: Bibasilar airspace opacities There is no evidence of pleural effusion, focal consolidat ion, or pneumothorax. Pulmonary vascularity: Unremarkable. Heart/mediastinum: Cardiomediastinal silhouette is unremarkable. Musculoskeletal: No acute osseous pathology. Other findings: None Lines/Tubes: Tracheostomy cannula tip projecting over the trachea. Left internal jugular central venous catheter with distal tip at the cavoatrial junction. IMPRESSION: Bibasilar airspace opacities. Correlate for pneumonia. Support tube and line in place. [facility], , 08/29/2024 7:07 AM
[2024-08-29 07:33] LABS: Basophils # (A) 0.04 10*3/uL (0.00-0.10); Basophils % (A) 0.6 %; Eosinophils # (A) 0.00 10*3/uL (0.04-0.35); Eosinophils % (A) 0.0 %; HCT 40.1 % (39.6-50.0); HGB 12.3 g/dL (13.0-17.0); Immature Platelet Fraction 5.0 % (1.1-6.1); Lymphocytes # (A) 0.48 10*3/uL (0.90-5.00); Lymphocytes % (A) 7.7 %; MCH 23.9 pg (27.0-32.0); MCHC 30.7 g/dL (32.0-37.0); MCV 77.9 fL (80.0-97.0); Monocytes # (A) 0.43 10*3/uL (0.20-1.00); Monocytes % (A) 6.9 %; Neutrophils # (A) 5.31 10*3/uL (1.80-7.70); Neutrophils % (A) 84.6 %; Platelet Count 216 10*3/uL (140-440); RBC 5.15 10*6/uL (4.40-5.60); RDW 17.7 % (11.5-14.5); WBC 6.27 10*3/uL (4.50-10.00)
[2024-08-29 07:48] LABS: INR 1.1 (<1.2); Partial Thromboplastin Time 27.6 sec (22.0-30.0); Prothrombin Time 11.6 sec (10.0-12.5)
[2024-08-29 07:52] LABS: ALT 98 U/L (4-49); AST 47 U/L (17-59); African American GFR (CKD) >90 (>60 ml/min/1.73 sqM); Albumin 3.8 g/dL (3.5-5.0); Alkaline Phosphatase 151 U/L (38-126); Anion Gap 13 mmol/L; Blood Urea Nitrogen 50 mg/dL (9-20); Calcium 10.8 mg/dL (8.4-10.2); Carbon Dioxide 17 mmol/L (22-30); Chloride 98 mmol/L (98-107); Glucose 185 mg/dL (74-99); Magnesium 2.1 mg/dL (1.6-2.3); Non-African American GFR(CKD) >90 (>60 ml/min/1.73 sqM); Potassium 3.1 mmol/L (3.5-5.1); Sodium 128 mmol/L (137-145); Total Protein 8.2 g/dL (6.3-8.2)
[2024-08-29 07:59] LABS: NT-Pro-B-Type Natriuretic Pept 39 pg/mL
--- NOTE | 2024-08-29 08:06 | ED ---
SOB HPI - General Source: EMS Mode of arrival: EMS Limitations: physical limitation (Tracheostomy) - History of Present Illness MD Complaint: shortness of breath, cough -: hour(s) Quality: aching Consistency: constant Improves With: nothing Worsens With: nothing Known History Of: recurrent pneumonia Associated Symptoms: other (Generalized pains) - Related Data Home Oxygen Therapy: Yes <Manpreet Crocker - Last Filed: 08/29/24 08:01> <Eddie Myles - Last Filed: 08/29/24 08:14> - General Chief Complaint: Shortness of Breath Stated Complaint: Difficulty Breathing Time Seen by Provider: 08/29/24 05:17 - History of Present Illness Initial Comments: This patient is 49-year-old man with history of tracheostomy who presents with complaint that he is having increasing shortness of breath over the course of the previous night. The patient has also been having generalized weakness. He states that if feels like he cannot draw a full breath. He is uncertain if he has had fever. He is having sputum production with the cough. (Manpreet Crocker) - Related Data Home Medications Medication Instructions Recorded Confirmed Pantoprazole [Protonix] 40 mg PO BID 07/07/22 08/19/24 Enoxaparin [Lovenox] 90 mg SQ Q12H 06/19/24 08/19/24 Folic Acid 1 mg PO DAILY 06/19/24 08/19/24 Loperamide HCl [Imodium A-D] 4 mg PO TID 06/19/24 08/19/24 Thiamine [Vitamin B-1] 100 mg PO DAILY 06/19/24 08/19/24 HYDROcodone/APAP 5-325MG [[place] 1 tab PO Q6H PRN 07/17/24 08/19/24 5-325] Amoxic-Pot Clav 875-125Mg 1 tab PO DIRECTED 08/19/24 08/19/24 [Augmentin 875-125] Previous Rx's Medication Instructions Recorded busPIRone HCl [Buspar] 15 mg PO BID 30 Days #60 tab 07/14/24 Ipratropium-Albuterol Nebulize 3 ml INHALATION RT-QID #100 each 08/04/24 [Duoneb 0.5 mg-3 mg/3 ml Soln] Ipratropium-Albuterol Nebulize 3 ml INHALATION RT-QID PRN each 08/04/24 [Duoneb 0.5 mg-3 mg/3 ml Soln] Nystatin 100,000 Unit/gm Powd 1 applic TOPICAL BID each 08/04/24 [Mycostatin Powder] Scopolamine 1 mg/72 Hr Patch 1 patch TRANSDERM Q72H #30 patch 08/04/24 [TransDerm Scop] Allergies Allergy/AdvReac Type Severity Reaction Status Date / Time piperacillin [From Zosyn] Allergy Rash/Hives Verified 08/29/24 05:21 tazobactam [From Zosyn] Allergy Rash/Hives Verified 08/29/24 05:21 Review of Systems ROS Other: All systems not noted in ROS Statement are negative. Constitutional: Reports: weakness Respiratory: Reports: cough, dyspnea. Denies: hemoptysis Cardiovascular: Denies: chest pain, palpitations, syncope Gastrointestinal: Reports: abdominal pain Musculoskeletal: Reports: back pain Skin: Denies: rash Neurological: Denies: headache, weakness <Manpreet Crocker - Last Filed: 08/29/24 08:01> ROS Other: All systems not noted in ROS Statement are negative. <Eddie Myles - Last Filed: 08/29/24 08:14> ROS Statement: Those systems with pertinent positive or pertinent negative responses have been documented in the HPI. Past Medical History Past Medical History: CVA/TIA, Deep Vein Thrombosis (DVT) Additional Past Medical History / Comment(s): Hx CVA in 2012, DVT R arm, Crohns. colostomy Bag placed in 09/2021. History of Any Multi-Drug Resistant Organisms: MRSA, Other MDRO Date of last positivie culture/infection: 07/20/24-Other MDRO; 12/14/23-MRSA MDRO Source:: Other MDRO - sputum, BAL; MRSA- nasal Past Surgical History: Bowel Resection, Cholecystectomy, Orthopedic Surgery Additional Past Surgical History / Comment(s): R BKA, trach with chronic home vent Past Anesthesia/Blood Transfusion Reactions: No Reported Reaction Additional Past Anesthesia/Blood Transfusion Reaction / Comment(s): recalled from previous admission Past Psychological History: No Psychological Hx Reported Smoking Status: Former smoker Past Alcohol Use History: None Reported Past Drug Use History: None Reported - Past Family History Father Additional Family Medical History / Comment(s): DAD IN HIS TWENTIES - CAUSE UNKNOWN. Mother Family Medical History: Diabetes Mellitus Brother(s) Family Medical History: Cancer Additional Family Medical History / Comment(s): Kidney cancer as a baby. <LizzetteManpreet - Last Filed: 08/29/24 08:01> General Exam General appearance: alert, in distress Head exam: Present: atraumatic, normocephalic Eye exam: Present: normal appearance. Absent: scleral icterus, conjunctival injection Neck exam: Present: other (Tracheostomy). Absent: tenderness Respiratory exam: Present: respiratory distress, rhonchi, accessory muscle use. Absent: wheezes, rales, stridor, chest wall tenderness, decreased breath sounds, prolonged expiratory Cardiovascular Exam: Present: normal rhythm, tachycardia. Absent: systolic murmur, diastolic murmur, rubs, gallop GI/Abdominal exam: Present: soft, other (The patient has ostomy currently no output.). Absent: distended, tenderness, guarding, rebound Extremities exam: Present: normal capillary refill, other (Right below knee amputation) Neurological exam: Present: alert. Absent: motor sensory deficit Skin exam: Present: warm, dry, intact, normal color. Absent: rash <Manpreet Crocker - Last Filed: 08/29/24 08:01> Course Vital Signs 08/29/24 08/29/24 08/29/24 05:08 05:10 05:15 Temperature 100.2 F H Pulse Rate 114 H Respiratory 24 Rate Blood Pressure 110/73 O2 Sat by Pulse 97 Oximetry Fraction of 45 45 Inspired Oxygen (FIO2) 08/29/24 06:39 Temperature 99.1 F Pulse Rate 97 Respiratory 24 Rate Blood Pressure 99/63 O2 Sat by Pulse 98 Oximetry Fraction of Inspired Oxygen (FIO2) Medical Decision Making - Lab Data Result diagrams: 08/29/24 06:50 08/29/24 06:50 <Manpreet Crocker - Last Filed: 08/29/24 08:01> - Lab Data Result diagrams: 08/29/24 06:50 08/29/24 06:50 <Eddie Myles - Last Filed: 08/29/24 08:14> - Medical Decision Making Was pt. sent in by a medical professional or institution (, PA, CAUSTIC PURIFICATION OPERATOR, urgent care, hospital, or skilled nursing...) When possible be specific @ -No Did you speak to anyone other than the patient for history (EMS, parent, family, police, friend...)? What history was obtained from this source @ -Son is present and helps provide history including patient's need for ICU for vent Did you review nursing and triage notes (agree or disagree)? Why? @ -I reviewed and agree with nursing and triage notes Were old charts reviewed (outside hosp., previous admission, EMS record, old EKG, old radiological studies, urgent care reports/EKG's, skilled nursing records)? Report findings @ -Previous admissions reviewed Differential Diagnosis (chest pain, altered mental status, abdominal pain women, abdominal pain men, vaginal bleeding, weakness, fever, dyspnea, syncope, headache, dizziness, GI bleed, back pain, seizure, CVA, palpatations, mental health, musculoskeletal)? @ -Differential Dyspnea: Coronary syndrome, arrhythmia, tamponade, asthma, COPD, pulmonary embolism, pneumonia, pneumothorax, pulmonary effusion, anaphylaxis, diabetic ketoacidosis, flailed chest, pulmonary contusion, diaphragmatic rupture, anemia, ne uromuscular, this is not meant to be an all-inclusive list. EKG interpreted by me (3pts min.). @ -As above X-rays interpreted by me (1pt min.). @ -Chest x-ray shows bibasilar infiltrates CT interpreted by me (1pt min.). @ -None done U/S interpreted by me (1pt. min.). @ -None done What testing was considered but not performed or refused? (CT, X-rays, U/S, labs)? Why? @ -None What meds were considered but not given or refused? Why? @ -None Did you discuss the management of the patient with other professionals (professionals i.e. , PA, CAUSTIC PURIFICATION OPERATOR, lab, RT, psych nurse, social media sr strategy manager, dope weigh operator, t eacher, navy airspace officer, patient case manager)? Give summary @ -Case was discussed with Dr. Masters who will admit covering Dr. Solorio. Dr. Peoples was also made aware who states admit to ICU Was smoking cessation discussed for >3mins.? @ -No Was critical care preformed (if so, how long)? @ -31 minutes critical care time Were there social determinants of health that impacted care today? How? (Homelessness, low income, unemployed, alcoholism, drug addiction, transportation, low edu. Level, literacy, decrease access to med. care, half-way, rehab)? @ -No Was there de-escalation of care discussed even if they declined (Discuss DNR or withdrawal of care, Hospice)? DNR status @ -No What co-morbidities impacted this encounter? (DM, HTN, Smoking, COPD, CAD, Cancer, CVA, ARF, Chemo, Hep., AIDS, mental health diagnosis, sleep apnea, morbid obesity)? @ -Vent dependent/trach Was patient admitted / discharged? Hospital course, mention meds given and route, prescriptions, significant lab abnormalities, going to OR and other pertinent info. @ -Patient presents with difficulty breathing. Patient does have mild changes of pneumonia on chest x-ray however has history of trach and vent. Patient also has hyponatremia and dehydrated. Patient will be admitted to ICU. Admission orders written. Patient was reevaluated by me. Patient and family is updated. Undiagnosed new problem with uncertain prognosis? @ -No Drug Therapy requiring intensive monitoring for toxicity (Heparin, Nitro, Insulin, Cardizem)? @ -No Were any procedures done? @ -No Diagnosis/symptom? @ -Pneumonia, sepsis Acute, or Chronic, or Acute on Chronic? @ -. Acute, acute Uncomplicated (without systemic symptoms) or Complicated (systemic symptoms)? @ -Complicated with hyponatremia and dehydration Side effects of treatment? @ -No Exacerbation, Progression, or Severe Exacerbation? @ -No Poses a threat to life or bodily function? How? (Chest pain, [place], [place], pneumonia, PE, COPD, DKA, ARF, appy, cholecystitis, CVA, Diverticulitis, Homicidal, Suicidal, threat to staff... and all critical care pts) @ -Threat to metabolic function and pulmonary function (Eddie Myles) - Lab Data Lab Results 08/29/24 08/29/24 08/29/24 Range/Units 06:50 06:50 06:50 WBC 6.27 (4.50-10.00) 10*3/uL RBC 5.15 (4.40-5.60) 10*6/uL Hgb 12.3 L (13.0-17.0) g/dL Hct 40.1 (39.6-50.0) % MCV 77.9 L (80.0-97.0) fL MCH 23.9 L (27.0-32.0) pg MCHC 30.7 L (32.0-37.0) g/dL Plt Count 216 (140-440) 10*3/uL MPV 12.4 H (9.5-12.2) fL Immature Gran % (Auto) 0.2 % Neutrophils % 84.6 % Lymphocytes % 7.7 % Monocytes % 6.9 % Eosinophils % 0.0 % Basophils % 0.6 % Immature Gran # 0.01 (0.00-0.04) 10*3/uL Neutrophils # 5.31 (1.80-7.70) 10*3/uL Lymphocytes # 0.48 L (0.90-5.00) 10*3/uL Monocytes # 0.43 (0.20-1.00) 10*3/uL Eosinophils # 0.00 L (0.04-0.35) 10*3/uL Basophils # 0.04 (0.00-0.10) 10*3/uL Immature Plt Fraction 5.0 (1.1-6.1) % PT 11.6 (10.0-12.5) sec INR 1.1 (<1.2) APTT 27.6 (22.0-30.0) sec D-Dimer 0.36 (<0.60) mg/L FEU Sodium 128 L (137-145) mmol/L Potassium 3.1 L (3.5-5.1) mmol/L Chloride 98 (98-107) mmol/L Carbon Dioxide 17 L (22-30) mmol/L Anion Gap 13 mmol/L BUN 50 H (9-20) mg/dL Creatinine 0.46 L (0.66-1.25) mg/dL Est GFR (CKD-EPI)AfAm >90 (>60 ml/min/1.73 sqM) Est GFR (CKD-EPI)NonAf >90 (>60 ml/min/1.73 sqM) Glucose 185 H (74-99) mg/dL Plasma Lactic Acid Edmund (0.7-2.0) mmol/L Calcium 10.8 H (8.4-10.2) mg/dL Magnesium 2.1 (1.6-2.3) mg/dL Total Bilirubin 1.2 (0.2-1.3) mg/dL AST 47 (17-59) U/L ALT 98 H (4-49) U/L Alkaline Phosphatase 151 H (38-126) U/L Troponin I (0.000-0.034) ng/mL NT-Pro-B Natriuret Pep 39 pg/mL Total Protein 8.2 (6.3-8.2) g/dL Albumin 3.8 (3.5-5.0) g/dL 08/29/24 08/29/24 Range/Units 06:50 06:50 WBC (4.50-10.00) 10*3/uL RBC (4.40-5.60) 10*6/uL Hgb (13.0-17.0) g/dL Hct (39.6-50.0) % MCV (80.0-97.0) fL MCH (27.0-32.0) pg MCHC (32.0-37.0) g/dL Plt Count (140-440) 10*3/uL MPV (9.5-12.2) fL Immature Gran % (Auto) % Neutrophils % % Lymphocytes % % Monocytes % % Eosinophils % % Basophils % % Immature Gran # (0.00-0.04) 10*3/uL Neutrophils # (1.80-7.70) 10*3/uL Lymphocytes # (0.90-5.00) 10*3/uL Monocytes # (0.20-1.00) 10*3/uL Eosinophils # (0.04-0.35) 10*3/uL Basophils # (0.00-0.10) 10*3/uL Immature Plt Fraction (1.1-6.1) % PT (10.0-12.5) sec INR (<1.2) APTT (22.0-30.0) sec D-Dimer (<0.60) mg/L FEU Sodium (137-145) mmol/L Potassium (3.5-5.1) mmol/L Chloride (98-107) mmol/L Carbon Dioxide (22-30) mmol/L Anion Gap mmol/L BUN (9-20) mg/dL Creatinine (0.66-1.25) mg/dL Est GFR (CKD-EPI)AfAm (>60 ml/min/1.73 sqM) Est GFR (CKD-EPI)NonAf (>60 ml/min/1.73 sqM) Glucose (74-99) mg/dL Plasma Lactic Acid Edmund 2.1 H* (0.7-2.0) mmol/L Calcium (8.4-10.2) mg/dL Magnesium (1.6-2.3) mg/dL Total Bilirubin (0.2-1.3) mg/dL AST (17-59) U/L ALT (4-49) U/L Alkaline Phosphatase (38-126) U/L Troponin I 0.016 (0.000-0.034) ng/mL NT-Pro-B Natriuret Pep pg/mL Total Protein (6.3-8.2) g/dL Albumin (3.5-5.0) g/dL Disposition <Manpreet Crocker - Last Filed: 08/29/24 08:01> Is patient prescribed a controlled substance at d/c from ED?: No Time of Disposition: 08:14 <Eddie Myles - Last Filed: 08/29/24 08:14> Clinical Impression: Sepsis, Pneumonia Disposition: ADMITTED IP TO THIS HOSP Condition: Serious Referrals: Johnie Murcia MD [Primary Care Provider] - 1-2 days
[2024-08-29] MEDS: ONDANSETRON 4 MG/2 ML VIAL IVP STA (08:12)
[2024-08-29] MEDS: HYDROmorphone 1 MG/ML 1 ML SYRINGE IVP STA (08:13)
[2024-08-29] MEDS ORDERED: PNEUMONIA PROTOCOL UTILIZED 1 EACH MISC PO PRN (08:15)
[2024-08-29] MEDS: AZITHROMYCIN 500 MG in SODIUM CHLORIDE 0.9% 250 ML IVPB STA (08:24)
[2024-08-29 08:31] LABS: Bacteria,Urine Moderate /hpf; Budding Yeast,Urine Occasional /hpf; Mucus,Urine Rare /hpf
[2024-08-29] MEDS: LACTATED RINGERS 1,000 ML IV STA (08:46)
[2024-08-29] MEDS: LACTATED RINGERS 1,000 ML BAG IV STA (08:47)
[2024-08-29 08:48] LABS: Bilirubin,Urine Negative (Negative); Blood,Urine Negative (Negative); Color,Urine Yellow; Glucose,Urine (UA) Negative (Negative); Hyaline Casts,Urine 3 /lpf (0-2); Ketones,Urine Negative (Negative); Leukocyte Esterase,Urine Trace (Negative); Nitrite,Urine Negative (Negative); PH, Urine 6.5 (5.0-8.0); Protein,Urine Negative (Negative); RBC,Urine 2 /hpf (0-5); Specific Gravity,Urine 1.021 (1.001-1.035); Squamous Epithelial Cell,Urine <1 /hpf (0-4); Urobilinogen,Urine <2.0 mg/dL (<2.0); WBC,Urine 8 /hpf (0-5)
[2024-08-29 08:49] LABS: RSV Not Detected (Not Detectd)
[2024-08-29 09:32] LABS: Glucose,Whole Blood 192 mg/dL (70-110)
[2024-08-29] MEDS: CEFEPIME 2 GM in SODIUM CHLORIDE 0.9% 100 ML IVPB STA (09:38)
[2024-08-29] MEDS: LACTATED RINGERS 1,000 ML IV ONE (09:45)
[2024-08-29] MEDS ORDERED: Potassium Replacement Protocol 1 EACH MISC MISCELLANE PRN (10:10)
[2024-08-29] MEDS ORDERED: NALOXONE 0.4 MG/ML 1 ML VIAL IV PRN (10:56)
[2024-08-29] MEDS: POTASSIUM CHLORIDE 10 MEQ in WATER FOR INJECTION 1 100ML.BAG IVPB SCH (11:23)
--- NOTE | 2024-08-29 12:00 | P.CNPUL ---
History of Present Illness Consult date: 08/29/24 Requesting physician: Rony Masters Reason for consult: dyspnea, pneumonia Chief complaint: Shortness of breath History of present illness: This is a 49-year-old white male familiar to my service, history of paraplegia, home vent dependent, history of tracheostomy, patient had multiple admissions to the ICU for recurrent episodes of pneumonia and respiratory failure requiring ventilatory support. On his last admission patient was eventually discharged home on a home ventilator, and this was back on 08/04/2024. Patient was discharged home with a PICC line, patient was in the ER yesterday on 08/28 for abnormal labs mostly low potassium and low sodium discharged home however he came back today complaining of shortness of breath, has been ventilator dependent all along. Chest x-ray showed basically bibasilar opacities/atelectasis, doubt pneumonia, the findings in the left lower lobe are chronic. Patient did have previous history of pneumonia involving the left lower lobe and he had multiple bronchoscopies in the past. Bronchial cultures and sputum cultures have been positive in the past for mostly Pseudomonas aeruginosa. Patient was seen in the ER today, and he is already on cefepime for empiric coverage for potential left lower lobe pneumonia, patient had abnormal electrolytes with relatively low sodium low potassium, no leukocytosis, normal renal profile, blood pressure was soft, and he was given fluid boluses. Lactic acid was 2.1, D-dimer is normal, patient was admitted, and this consult was initiated. 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 Review of Systems CONSTITUTIONAL: No fever no chills some weight loss. EYES: Denies change in vision. EARS, NOSE, MOUTH, THROAT: Denies headaches, denies sore throat. CARDIOVASCULAR: Denies chest pain, palpitations or syncopal episodes. RESPIRATORY: Recurrent episodes of chronic shortness of breath and sometimes e xcessive tracheal secretions GASTROINTESTINAL: Denies change in appetite, denies abdominal pain GENITOURINARY: Denies hematuria, denies infections. MUSKULOSKELETAL: Denies pain, denies swelling. INTEGUMENTARY: Denies rash, denies eczema. NEUROLOGICAL: Denies recent memory loss, no recent seizure activity. PSYCHIATRIC: Denies anxiety, denies depression. HEMATOLOGIC/LYMPHATIC: Denies anemia, denies enlarged lymph nodes. Past Medical History Past Medical History: CVA/TIA, Deep Vein Thrombosis (DVT), Pneumonia Additional Past Medical History / Comment(s): Hx CVA in 2012, DVT R arm, Crohns. colostomy Bag placed in 09/2021. History of Any Multi-Drug Resistant Organisms: MRSA, Other MDRO Date of last positivie culture/infection: 07/20/24-Other MDRO; 12/14/23-MRSA MDRO Source:: Other MDRO - sputum, BAL; MRSA- nasal Past Surgical History: Bowel Resection, Cholecystectomy, Orthopedic Surgery Additional Past Surgical History / Comment(s): R BKA, trach with chronic home vent Past Anesthesia/Blood Transfusion Reactions: No Reported Reaction Additional Past Anesthesia/Blood Transfusion Reaction / Comment(s): recalled from previous admission Smoking Status: Never smoker - Past Family History Father Additional Family Medical History / Comment(s): DAD IN HIS TWENTIES - CAUSE UNKNOWN. Mother Family Medical History: Diabetes Mellitus Brother(s) Family Medical History: Cancer Additional Family Medical History / Comment(s): Kidney cancer as a baby. Medications and Allergies Home Medications Medication Instructions Recorded Confirmed Type Pantoprazole [Protonix] 40 mg PO BID 07/07/22 08/29/24 History Enoxaparin [Lovenox] 100 mg SQ Q12H 06/19/24 08/29/24 History Folic Acid 1 mg PO DAILY 06/19/24 08/29/24 History Loperamide HCl [Imodium A-D] 4 mg PO Q6H 06/19/24 08/29/24 History Thiamine [Vitamin B-1] 100 mg PO DAILY 06/19/24 08/29/24 History busPIRone HCl [Buspar] 15 mg PO BID 30 Days #60 tab 07/14/24 08/29/24 Rx HYDROcodone/APAP 5-325MG [[place] 1 tab PO Q6H PRN 07/17/24 08/29/24 History 5-325] Ipratropium-Albuterol Nebulize 3 ml INHALATION RT-QID #100 each 08/04/24 08/29/24 Rx [Duoneb 0.5 mg-3 mg/3 ml Soln] Ipratropium-Albuterol Nebulize 3 ml INHALATION RT-QID PRN each 08/04/24 08/29/24 Rx [Duoneb 0.5 mg-3 mg/3 ml Soln] Scopolamine 1 mg/72 Hr Patch 1 patch TRANSDERM Q72H #30 patch 08/04/24 08/29/24 Rx [TransDerm Scop] Amoxic-Pot Clav 875-125Mg 1 tab PO BID 08/19/24 08/29/24 History [Augmentin 875-125] Cholecalciferol (Vitamin D3) 1,250 mcg PO MOTH 08/29/24 08/29/24 History [Vitamin D3 (1250 Mcg = 50,000 Iu)] Cholecalciferol [Vitamin D3 (125 125 mcg PO DAILY 08/29/24 08/29/24 History Mcg = 5000 Iu)] Furosemide [Lasix] 20 mg PO DAILY 08/29/24 08/29/24 History Allergies Allergy/AdvReac Type Severity Reaction Status Date / Time piperacillin [From Zosyn] Allergy Rash/Hives Verified 08/29/24 08:45 tazobactam [From Zosyn] Allergy Rash/Hives Verified 08/29/24 08:45 Physical Exam Vitals: Vital Signs Temp Pulse Resp BP Pulse Ox FiO2 08/29/24 10:30 76 20 100/54 100 08/29/24 10:15 81 22 115/79 97 08/29/24 10:00 87 23 83/47 98 08/29/24 09:45 84 20 98/54 99 08/29/24 09:37 98 F 88 22 80/40 98 08/29/24 09:30 98.2 F 88 24 103/63 99 08/29/24 08:56 86 22 83/47 98 08/29/24 08:30 98.8 F 86 22 77/47 97 08/29/24 08:00 88 22 97 08/29/24 06:39 99.1 F 97 24 99/63 98 08/29/24 05:15 45 08/29/24 05:10 45 08/29/24 05:08 100.2 F H 114 H 24 110/73 97 Intake and Output 06/13/25 06/14/25 06/14/25 22:59 06:59 14:59 Intake Total 2495.2 Output Total 30 Balance 2465.2 Intake: IV 395.2 Lactated Ringers 1,000 ml 130 @ 130 mls/hr IV .Q7H42M STA Rx#:[id number] TPN 265.2 Intake, IV Titration 2100 Amount Lactated Ringers 1,000 ml 2000 @ 999 mls/hr IV .Q1H1M ONE Rx#:[id number] cefTRIAXone 2 gm In 100 Sodium Chloride 0.9% 50 ml @ 100 mls/hr IVPB ONCE STA Rx#:[id number] Output: Urine 30 Other: Weight 86.183 kg 86.183 kg GENERAL EXAM: Awake, alert 49-year-old male patient, intubated, has a tracheostomy in place, connected to his home ventilator. HEAD: Normocephalic. EYES: Normal reaction of pupils, equal size. NOSE: Clear with pink turbinates. THROAT: Tracheostomy tube secured in place. No erythema or exudates. NECK: No masses, no JVD. CHEST: No chest wall deformity. LUNGS: Equal air entry with coarse rhonchi bilaterally. CVS: S1 and S2 normal with no audible murmur, regular rhythm. ABDOMEN: Enterocutaneous fistula over the abdominal wall. No hepatosplenomegaly, normal bowel sounds. SPINE: No scoliosis or deformity SKIN: No rashes CENTRAL NERVOUS SYSTEM: No focal deficits, except for paraplegia. EXTREMITIES: Extensive muscle atrophy. Contractures. There is no peripheral edema. No clubbing, no cyanosis. Peripheral pulses are intact. Right below- knee amputation is noted. Results - Laboratory Findings CBC and BMP: 08/29/24 06:50 08/29/24 06:50 PT/INR, D-dimer PT 11.6 sec (10.0-12.5) 08/29/24 06:50 INR 1.1 (<1.2) 08/29/24 06:50 D-Dimer 0.36 mg/L FEU (<0.60) 08/29/24 06:50 Abnormal lab findings: Abnormal Labs 08/29/24 08/29/24 08/29/24 06:50 06:50 06:50 Hgb 12.3 L MCV 77.9 L MCH 23.9 L MCHC 30.7 L MPV 12.4 H Lymphocytes # 0.48 L Eosinophils # 0.00 L Sodium 128 L Potassium 3.1 L Carbon Dioxide 17 L BUN 50 H Creatinine 0.46 L Glucose 185 H POC Glucose (mg/dL) Plasma Lactic Acid Edmund 2.1 H* Calcium 10.8 H ALT 98 H Alkaline Phosphatase 151 H Ur Leukocyte Esterase Urine WBC Urine Bacteria Hyaline Casts Urine Mucus Urine Yeast (Budding) 08/29/24 08/29/24 07:56 09:31 Hgb MCV MCH MCHC MPV Lymphocytes # Eosinophils # Sodium Potassium Carbon Dioxide BUN Creatinine Glucose POC Glucose (mg/dL) 192 H Plasma Lactic Acid Edmund Calcium ALT Alkaline Phosphatase Ur Leukocyte Esterase Trace H Urine WBC 8 H Urine Bacteria Moderate H Hyaline Casts 3 H Urine Mucus Rare H Urine Yeast (Budding) Occasional H - Diagnostic Findings Chest x-ray: image reviewed (As noted in HPI) Assessment and Plan Assessment: Impression: Chronic hypoxic and hypercapnic respiratory failure, patient is ventilator dependent, on home ventilator. Left lower lobe atelectasis, possible pneumonia patient had previous pneumonias related to Pseudomonas infections, hence we will continue with cefepime. History of severe tracheal stenosis History of tracheostomy Possible sepsis patient does have slightly elevated lactic acid and his blood pressure is soft, not requiring any pressors at this point, improving with fluid boluses. History of recurrent pneumonias involving left lower lobe Tracheobronchomalacia History of DVT History of CVA History of right below-knee amputation History of asystole/cardiac arrest 2021. 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 Patient is maintained mostly on TPN. Recommendation: Admit to ICU Continue ventilatory support Hemodynamic support if necessary in the meantime give fluid boluses Antibiotics/cefepime, and Zithromax for now GI and DVT prophylaxis: Protonix and Lovenox Nutrition support/TPN patient is chronically on TPN Continue IV fluids patient received fluid boluses in the ER/lactated Ringer's Check cultures including blood cultures and urine cultures Monitor electrolytes daily Continue bronchodilators/DuoNeb updrafts 4 times daily and as needed Prognosis is extremely poor and guarded We will continue to follow Time with Patient: Greater than 30
[2024-08-29] MEDS: ENOXAPARIN 40 MG/0.4 ML SYRINGE SQ SCH (12:37)
[2024-08-29] MEDS: HYDROmorphone 0.5 MG/0.5 ML SYRINGE IVP PRN (14:16)
[2024-08-29] MEDS: ONDANSETRON 4 MG/2 ML VIAL IVP PRN (14:19)
[2024-08-29] MEDS: CEFEPIME 2 GM in SODIUM CHLORIDE 0.9% 100 ML IVPB SCH (15:51)
[2024-08-29] MEDS: 1: MVI, ADULT NO.4 WITH VIT K 10 ML, TRACE (CONC-1ML/DOSE) 1 ML, SODIUM CHLORIDE 4MEQ/ML IV SCH (16:20)
[2024-08-29] MEDS: LACTATED RINGERS 1,000 ML IV SCH (16:22)
--- NOTE | 2024-08-29 17:41 | P.HPIM ---
History of Present Illness H&P Date: 08/29/24 Chief Complaint: Short of breath 49-year-old patient, follows with Dr. Murcia History of paraplegia, home vent at night, tracheostomy multiple admissions to the ICU for recurrent pneumonia. Patient's previous bronchial cultures been positive for Pseudomonas. He was discharged recently on IV cefepime. Also has a history of Crohn's disease with previous colectomy diverting ileostomy. History of DVT for which patient is on subcu Lovenox. Also had drug-resistant MRSA Pseudomonas. Patient currently does not have areas significant trach secretions. He has continues TPN. Has a right BKA. He does have slight movement in the right hand. Able to follow commands by nodding his head. Answering questions. He is scared by his elder son open. I was also the DPOA. Review of systems: GEN.: Tired EYES: None HEENT: None NECK: Tracheostomy] RESPIRATORY: As above CARDIOVASCULAR: None GASTROINTESTINAL: Ileostomy bag GENITOURINARY: External catheter MUSCULOSKELETAL: Right below-knee amputation. Contracture of the left hand. Left foot drop. Slight movement in the right hand LYMPHATICS: None HEMATOLOGICAL: None PSYCHIATRY: None NEUROLOGICAL: Quadriparesis Social history: ] Patient started smoking at the age of [age] 1 pack a day stopped in 2017. Nonambulatory. Is cared by his son over. Who is also the DPOA Physical examination: VITAL SIGNS: 100.2, 114, 24, 110 x 73, 97% on presentation GENERAL: BMI 27.3, laying in bed not in distress. EYES: Pupils equal. Conjunctiva loan l. HEENT: External appearance of nose and ears normal, oral cavity grossly normal. NECK: JVD unable to assess; masses not palpable. Tracheostomy HEART: First and second heart sounds are normal; no edema. LUNGS: Respiratory rate increased decreased breath sounds. ABDOMEN: Soft, nontender, liver spleen not palpable, no masses palpable. Double barrel ostomy. PSYCH: Unable to assess l. MUSCULOSKELETAL: Right BKA. Left foot drop. Left hand contracture. Right hand also with contracture but able to have some movements NEUROLOGICAL: Cranial nerves grossly intact; no facial asymmetry, slight movement in the right arm. LYMPHATICS: No lymph nodes palpable in the axilla and neck. INVESTIGATIONS, reviewed in the clinical context: August 29, 2024: White count 6.2 hemoglobin 12.3 platelets 216 sodium 128 potassium 3.1 BUN 50 creatinine 0.46 lactic acid 2.1 calcium 10.8 phosphorus 3.0 troponin I 0.016 UA: Negative for nitrite Influenza type A, type B, RSV, SARS-CoV-2: Not detected EKG tracing personally reviewed by me-normal sinus rhythm Chest x-ray film personally reviewed by me-right basilar infiltrate Previous labs: Sputum culture July 20, 2024: Pseudomonas aeruginosa Assessment plan: - Possible basal pneumonia. Class admissions patient sputum was positive for Pseudomonas aeruginosa. Patient is already on IV cefepime.. Causing possible sepsis Continued follow-up with pulmonary - Chronic hypoxic and hypercapnic respiratory failure, vent dependent at night at home - Tracheostomy with trach collar - Probable sepsis. IV fluids. Antibiotics - Right below-knee amputation - Chronic quadriparesis. Including left foot drop. Left arm contracture. Some right hand contracture. 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 Continue IV cefepime. Dietitian consulted. TPN to continue. Went. Past Medical History Past Medical History: CVA/TIA, Deep Vein Thrombosis (DVT), Pneumonia Additional Past Medical History / Comment(s): Hx CVA in 2012, DVT R arm, Crohns. colostomy Bag placed in 09/2021. History of Any Multi-Drug Resistant Organisms: MRSA, Other MDRO Date of last positivie culture/infection: 07/20/24-Other MDRO; 12/14/23-MRSA MDRO Source:: Other MDRO - sputum, BAL; MRSA- nasal Past Surgical History: Bowel Resection, Cholecystectomy, Orthopedic Surgery Additional Past Surgical History / Comment(s): R BKA, trach with chronic home vent Past Anesthesia/Blood Transfusion Reactions: No Reported Reaction Additional Past Anesthesia/Blood Transfusion Reaction / Comment(s): recalled from previous admission Smoking Status: Never smoker - Past Family History Father Additional Family Medical History / Comment(s): DAD IN HIS TWENTIES - CAUSE UNKNOWN. Mother Family Medical History: Diabetes Mellitus Brother(s) Family Medical History: Cancer Additional Family Medical History / Comment(s): Kidney cancer as a baby. Medications and Allergies Home Medications Medication Instructions Recorded Confirmed Type Pantoprazole [Protonix] 40 mg PO BID 07/07/22 08/29/24 History Enoxaparin [Lovenox] 100 mg SQ Q12H 06/19/24 08/29/24 History Folic Acid 1 mg PO DAILY 06/19/24 08/29/24 History Loperamide HCl [Imodium A-D] 4 mg PO Q6H 06/19/24 08/29/24 History Thiamine [Vitamin B-1] 100 mg PO DAILY 06/19/24 08/29/24 History busPIRone HCl [Buspar] 15 mg PO BID 30 Days #60 tab 07/14/24 08/29/24 Rx HYDROcodone/APAP 5-325MG [Mckinney 1 tab PO Q6H PRN 07/17/24 08/29/24 History 5-325] Ipratropium-Albuterol Nebulize 3 ml INHALATION RT-QID #100 each 08/04/24 08/29/24 Rx [Duoneb 0.5 mg-3 mg/3 ml Soln] Ipratropium-Albuterol Nebulize 3 ml INHALATION RT-QID PRN each 08/04/24 08/29/24 Rx [Duoneb 0.5 mg-3 mg/3 ml Soln] Scopolamine 1 mg/72 Hr Patch 1 patch TRANSDERM Q72H #30 patch 08/04/24 08/29/24 Rx [TransDerm Scop] Amoxic-Pot Clav 875-125Mg 1 tab PO BID 08/19/24 08/29/24 History [Augmentin 875-125] Cholecalciferol (Vitamin D3) 1,250 mcg PO MOTH 08/29/24 08/29/24 History [Vitamin D3 (1250 Mcg = 50,000 Iu)] Cholecalciferol [Vitamin D3 (125 125 mcg PO DAILY 08/29/24 08/29/24 History Mcg = 5000 Iu)] Furosemide [Lasix] 20 mg PO DAILY 08/29/24 08/29/24 History Allergies Allergy/AdvReac Type Severity Reaction Status Date / Time piperacillin [From Zosyn] Allergy Rash/Hives Verified 08/29/24 08:45 tazobactam [From Zosyn] Allergy Rash/Hives Verified 08/29/24 08:45 Physical Exam Vitals: Vital Signs Temp Pulse Resp BP Pulse Ox FiO2 08/29/24 13:00 80 20 102/64 100 08/29/24 12:30 79 20 102/58 100 08/29/24 12:00 76 20 94/56 99 45 08/29/24 11:46 45 08/29/24 11:30 82 20 92/56 97 08/29/24 11:00 79 20 100/56 100 08/29/24 10:30 76 20 100/54 100 08/29/24 10:15 81 22 115/79 97 08/29/24 10:00 87 23 83/47 98 08/29/24 09:45 84 20 98/54 99 08/29/24 09:37 98 F 88 22 80/40 98 08/29/24 09:30 98.2 F 88 24 103/63 99 45 08/29/24 08:56 86 22 83/47 98 08/29/24 08:30 98.8 F 86 22 77/47 97 08/29/24 08:00 88 22 97 08/29/24 06:39 99.1 F 97 24 99/63 98 08/29/24 05:15 45 08/29/24 05:10 45 08/29/24 05:08 100.2 F H 114 H 24 110/73 97 Intake and Output 08/28/24 08/29/24 08/29/24 22:59 06:59 14:59 Intake Total 3583.0 Output Total 30 Balance 3553.0 Intake: IV 1183.0 Lactated Ringers 1,000 ml 520 @ 130 mls/hr IV .Q7H42M STA Rx#:[id number] TPN 663.0 Intake, IV Titration 2400 Amount Lactated Ringers 1,000 ml 2000 @ 999 mls/hr IV .Q1H1M ONE Rx#:[id number] Potassium Chloride 10 meq 300 In Water For Injection 1 100ml.bag @ 100 mls/hr IVPB Q1HR ANNIE Rx#: [id number] cefTRIAXone 2 gm In 100 Sodium Chloride 0.9% 50 ml @ 100 mls/hr IVPB ONCE STA Rx#:[id number] Output: Urine 30 Other: Voiding Method External Catheter Weight 86.183 kg 86.183 kg Results CBC & Chem 7: 08/29/24 06:50 08/29/24 06:50 Labs: Abnormal Lab Results - Last 24 Hours (Table) 08/29/24 08/29/24 08/29/24 Range/Units 06:50 06:50 06:50 Hgb 12.3 L (13.0-17.0) g/dL MCV 77.9 L (80.0-97.0) fL MCH 23.9 L (27.0-32.0) pg MCHC 30.7 L (32.0-37.0) g/dL MPV 12.4 H (9.5-12.2) fL Lymphocytes # 0.48 L (0.90-5.00) 10*3/uL Eosinophils # 0.00 L (0.04-0.35) 10*3/uL Sodium 128 L (137-145) mmol/L Potassium 3.1 L (3.5-5.1) mmol/L Carbon Dioxide 17 L (22-30) mmol/L BUN 50 H (9-20) mg/dL Creatinine 0.46 L (0.66-1.25) mg/dL Glucose 185 H (74-99) mg/dL POC Glucose (mg/dL) (70-110) mg/dL Plasma Lactic Acid Edmund 2.1 H* (0.7-2.0) mmol/L Calcium 10.8 H (8.4-10.2) mg/dL ALT 98 H (4-49) U/L Alkaline Phosphatase 151 H (38-126) U/L Ur Leukocyte Esterase (Negative) Urine WBC (0-5) /hpf Urine Bacteria (None) /hpf Hyaline Casts (0-2) /lpf Urine Mucus (None) /hpf Urine Yeast (Budding) (None) /hpf 08/29/24 08/29/24 Range/Units 07:56 09:31 Hgb (13.0-17.0) g/dL MCV (80.0-97.0) fL MCH (27.0-32.0) pg MCHC (32.0-37.0) g/dL MPV (9.5-12.2) fL Lymphocytes # (0.90-5.00) 10*3/uL Eosinophils # (0.04-0.35) 10*3/uL Sodium (137-145) mmol/L Potassium (3.5-5.1) mmol/L Carbon Dioxide (22-30) mmol/L BUN (9-20) mg/dL Creatinine (0.66-1.25) mg/dL Glucose (74-99) mg/dL POC Glucose (mg/dL) 192 H (70-110) mg/dL Plasma Lactic Acid Edmund (0.7-2.0) mmol/L Calcium (8.4-10.2) mg/dL ALT (4-49) U/L Alkaline Phosphatase (38-126) U/L Ur Leukocyte Esterase Trace H (Negative) Urine WBC 8 H (0-5) /hpf Urine Bacteria Moderate H (None) /hpf Hyaline Casts 3 H (0-2) /lpf Urine Mucus Rare H (None) /hpf Urine Yeast (Budding) Occasional H (None) /hpf Thrombosis Risk Factor Assmnt - Choose All That Apply Any of the Below Risk Factors Present?: Yes Each Factor Represents 1 point: Age 41-60 years, Medical pt on bed rest, Sepsis (< 1month) Other Risk Factors: No Other congenital or acquired thrombophilia - If yes, enter type in comment: No Thrombosis Risk Factor Assessment Total Risk Factor Score: 3 Thrombosis Risk Factor Assessment Level: Moderate Risk
[2024-08-29] MEDS: ENOXAPARIN 100 MG/ML SYRINGE SQ SCH (20:19)
[2024-08-29] MEDS: NOREPINEPHRINE 8 MG in SODIUM CHLORIDE 0.9% 250 ML IV SCH (22:52)
[2024-08-30 03:36] LABS: Basophils # (A) 0.02 10*3/uL (0.00-0.10); Basophils % (A) 0.6 %; Eosinophils # (A) 0.00 10*3/uL (0.04-0.35); Eosinophils % (A) 0.0 %; HCT 34.3 % (39.6-50.0); Immature Platelet Fraction 4.6 % (1.1-6.1); Lymphocytes # (A) 0.64 10*3/uL (0.90-5.00); Lymphocytes % (A) 17.9 %; MCH 23.8 pg (27.0-32.0); MCHC 29.2 g/dL (32.0-37.0); MCV 81.5 fL (80.0-97.0); Monocytes # (A) 0.33 10*3/uL (0.20-1.00); Monocytes % (A) 9.2 %; Neutrophils # (A) 2.56 10*3/uL (1.80-7.70); Neutrophils % (A) 71.7 %; Platelet Count 173 10*3/uL (140-440); RBC 4.21 10*6/uL (4.40-5.60); RDW 18.2 % (11.5-14.5); WBC 3.57 10*3/uL (4.50-10.00)
[2024-08-30 03:42] LABS: HGB 10.0 g/dL (13.0-17.0)
[2024-08-30 03:53] LABS: African American GFR (CKD) >90 (>60 ml/min/1.73 sqM); Anion Gap 8 mmol/L; Blood Urea Nitrogen 32 mg/dL (9-20); Calcium 9.7 mg/dL (8.4-10.2); Carbon Dioxide 23 mmol/L (22-30); Chloride 100 mmol/L (98-107); Glucose 123 mg/dL (74-99); Non-African American GFR(CKD) >90 (>60 ml/min/1.73 sqM); Potassium 3.5 mmol/L (3.5-5.1); Sodium 131 mmol/L (137-145)
[2024-08-30 04:12] LABS: Magnesium 2.1 mg/dL (1.6-2.3)
[2024-08-30] MEDS ORDERED: Potassium Replacement Protocol 1 EACH MISC MISCELLANE PRN ×2 (04:31→04:38)
[2024-08-30] MEDS: POTASSIUM CHLORIDE 20 MEQ in WATER FOR INJECTION 1 100ML.BAG IVPB SCH (04:51)
[2024-08-30] MEDS ORDERED: POTASSIUM CHLORIDE 10 MEQ in WATER FOR INJECTION 1 100ML.BAG IVPB SCH (05:00)
--- NOTE | 2024-08-30 07:24 | XR ---
EXAMINATION TYPE: XR chest 1V DATE OF EXAM: 08/30/2024 4:48 AM COMPARISON: Chest radiograph from one day prior. CLINICAL INDICATION: Male, 49 years old with history of Pneumonia; [facility] TECHNIQUE: XR chest 1V Frontal view of the chest. FINDINGS: Lungs/Pleura: Bibasilar airspace opacities There is no evidence of pleural effusion, focal consolidat ion, or pneumothorax. Pulmonary vascularity: Unremarkable. Heart/mediastinum: Cardiomediastinal silhouette is unremarkable. Musculoskeletal: No acute osseous pathology. Other findings: None Lines/Tubes: Tracheostomy cannula tip projecting over the trachea. Left internal jugular central venous catheter with distal tip at the cavoatrial junction. IMPRESSION: 1. Bibasilar airspace opacities. Correlate for pneumonia. 2. Support tube and line in place. [facility], , 08/30/2024 7:22 AM
[2024-08-30] MEDS ORDERED: VANCOMYCIN IV PER PHARMACY 1 EACH MISC MISCELLANE PRN (08:10)
[2024-08-30] MEDS: PANTOPRAZOLE 40 MG/10 ML VIAL IV SCH (08:28)
[2024-08-30] MEDS: FAT EMULSION 20% 250 ML in EMPTY BAG 1 BAG IV SCH (08:28)
[2024-08-30] MEDS: SODIUM PHOSPHATE 15 MMOL in DEXTROSE 5% IN WATER 250 ML IVPB ONE (08:30)
[2024-08-30] MEDS ORDERED: AZITHROMYCIN 500 MG in SODIUM CHLORIDE 0.9% 250 ML IVPB SCH (09:00)
[2024-08-30] MEDS: VANCOMYCIN 1,500 MG in SODIUM CHLORIDE 0.9% 500 ML 500 ML IVPB ONE (09:42)
--- NOTE | 2024-08-30 09:50 | P.PN ---
Progress Note - Text Progress Note Date: 08/30/24 Chief Complaint: Short of breath 49-year-old patient, follows with Dr. Murcia History of paraplegia, home vent at night, tracheostomy multiple admissions to the ICU for recurrent pneumonia. Patient's previous bronchial cultures been positive for Pseudomonas. He was discharged recently on IV cefepime. Also has a history of Crohn's disease with previous colectomy diverting ileostomy. History of DVT for which patient is on subcu Lovenox. Also had drug-resistant MRSA Pseudomonas. Patient currently does not have areas significant trach secretions. He has continues TPN. Has a right BKA. He does have slight movement in the right hand. Able to follow commands by nodding his head. Answering questions. He is scared by his elder son open. I was also the DPOA. August 30: Overnight patient started having more secretions through the tracheostomy. Vancomycin was added. Also blood pressure running low patient was put on Levophed drip. Otherwise sinus rhythm. Patient remains on the ventilator. Will also send off stool for C. difficile. Also patient IV cefepime. Getting TPN. Active Medications Albuterol/Ipratropium (Ipratropium-Albuterol 3 Ml Neb) 3 ml INHALATION RT-Q4H PRN PRN Reason: shortness of breath Enoxaparin Sodium (Enoxaparin 100 Mg/Ml Syringe) 90 mg SQ Q12HR [facility] Last Admin: 08/30/24 08:28 Dose: 90 mg Hydromorphone HCl (Hydromorphone 0.5 Mg/0.5 Ml Syringe) 0.5 mg IVP Q4HR PRN PRN Reason: Pain Last Admin: 08/30/24 05:59 Dose: 0.5 mg Cefepime HCl 2 gm/ Sodium (Chloride) 100 mls @ 25 mls/hr IVPB Q8HR [facility]; Protocol Stop: 09/03/24 15:59 Last Admin: 08/30/24 08:29 Dose: 25 mls/hr Parenteral Vitamin Supplement 10 ml/ Zinc/Copper/Manganese/Selenium 1 ml/ Sodium Chloride 72 meq/ Magnesium Sulfate 2 gm/ Sodium Phosphate 21 mmol/Potassium Acetate 34 meq/Amino Acids/Dextrose 1,057 mls @ 91 mls/hr IV .BY DURATION [facility] Last Admin: 08/29/24 16:20 Dose: 91 mls/hr Sodium Chloride 72 meq/Magnesium Sulfate 2 gm/ Sodium Phosphate 21 mmol/ Potassium Acetate 34 meq/ Amino Acids/Dextrose 1,046 mls @ 91 mls/hr IV .BY DURATION [facility] Last Admin: 08/30/24 03:12 Dose: 91 mls/hr Fat Emulsion Intravenous 250 (ml/ IV Solution) 250 mls @ 21 mls/hr IV Q72H [facility] Last Admin: 08/30/24 08:28 Dose: 21 mls/hr Lactated Ringer's (Lactated Ringers) 1,000 mls @ 130 mls/hr IV .Q7H42M [facility] Last Admin: 08/30/24 08:30 Dose: 130 mls/hr Norepinephrine Bitartrate 8 mg (/ Sodium Chloride) 258 mls @ 5.003 mls/hr IV .Q24H [facility]; Protocol Last Titration: 08/30/24 08:47 Dose: 0.02 mcg/kg/min, 3.335 mls/hr Acetaminophen 1,000 mg/ IV (Solution) 100 mls @ 400 mls/hr IVPB Q6HR PRN PRN Reason: Fever Stop: 08/31/24 06:01 Vancomycin HCl 1,500 mg/ (Sodium Chloride) 500 mls @ 167 mls/hr IVPB ONCE ONE Stop: 08/30/24 11:44 Last Admin: 08/30/24 09:42 Dose: 167 mls/hr Miscellaneous Information (Pneumonia Protocol Utilized 1 Each [facility]) 1 each PO ONCE PRN PRN Reason: Per Protocol Miscellaneous Information (Potassium Replacement Protocol 1 Each [facility] [place]) 1 each MISCELLANE DAILY PRN; Protocol PRN Reason: Per Protocol Miscellaneous Information (Vancomycin Iv Per Pharmacy 1 Each [facility] [place]) 1 each MISCELLANE DIRECTED PRN; Protocol PRN Reason: Per Protocol Naloxone HCl (Naloxone 0.4 Mg/Ml 1 Ml Vial) 0.2 mg IV Q2M PRN PRN Reason: Opioid Reversal Ondansetron HCl (Ondansetron 4 Mg/2 Ml Vial) 4 mg IVP Q6HR PRN PRN Reason: Nausea And Vomiting Last Admin: 08/29/24 14:19 Dose: 4 mg Pantoprazole Sodium (Pantoprazole 40 Mg/10 Ml Vial) 40 mg IV DAILY [facility] Last Admin: 08/30/24 08:28 Dose: 40 mg Social history: ] Patient started smoking at the age of [age] 1 pack a day stopped in 2017. Nonambulatory. Is cared by his son over. Who is also the OA Physical examination: VITAL SIGNS: 80, 20, 105 x 52, 99% on ventilator GENERAL: BMI 27.3, laying in bed not in distress. EYES: Pupils equal. Conjunctiva loan l. HEENT: External appearance of nose and ears normal, oral cavity grossly normal. NECK: JVD unable to assess; masses not palpable. Tracheostomy HEART: First and second heart sounds are normal; no edema. LUNGS: Respiratory rate increased, decreased breath sounds, some crackles ABDOMEN: Soft, nontender, liver spleen not palpable, no masses palpable. Double barrel ostomy. PSYCH: Able to answer questions by attempting to speak to normal. Not able to fully phonate MUSCULOSKELETAL: Right BKA. Left foot drop. Left hand contracture. Right hand also with contracture but able to have some movements NEUROLOGICAL: Cranial nerves grossly intact; no facial asymmetry, slight movement in the right arm. LYMPHATICS: No lymph nodes palpable in the axilla and neck. INVESTIGATIONS, reviewed in the clinical context: August 30: White count 3.5 hemoglobin 10.0 platelets 133 potassium 3.5 creatinine 0.36 August 29, 2024: White count 6.2 hemoglobin 12.3 platelets 216 sodium 128 potassium 3.1 BUN 50 creatinine 0.46 lactic acid 2.1 calcium 10.8 phosphorus 3.0 troponin I 0.016 UA: Negative for nitrite Influenza type A, type B, RSV, SARS-CoV-2: Not detected EKG tracing personally reviewed by me-normal sinus rhythm Chest x-ray film personally reviewed by me-right basilar infiltrate Previous labs: Sputum culture July 20, 2024: Pseudomonas aeruginosa Assessment plan: - basal pneumonia. Previous admission sputum was positive for Pseudomonas aeruginosa.: Slow to respond on IV cefepime.. IV vancomycin added. Continued follow-up with pulmonary - Rule out C. difficile - Septic shock: Slow response Patient on Levophed - Chronic hypoxic and hypercapnic respiratory failure, vent dependent at night at home - Tracheostomy with trach collar - Right below-knee amputation - Chronic quadriparesis. Including left foot drop. Left arm contracture. Some right hand contracture. Some movement in the right arm - Crohn's disease with double barrel ostomy bag in place since 09/2021 - TPN - Full code - DPOA, haylee PENA IV cefepime. IV vancomycin added. Sputum has been sent off for culture. Send off stool for C. difficile. Past Medical History Past Medical History: CVA/TIA, Deep Vein Thrombosis (DVT), Pneumonia Additional Past Medical History / Comment(s): Hx CVA in 2012, DVT R arm, Crohns. colostomy Bag placed in 09/2021. History of Any Multi-Drug Resistant Organisms: MRSA, Other MDRO Date of last positivie culture/infection: 07/20/24-Other MDRO; 12/14/23-MRSA MDRO Source:: Other MDRO - sputum, BAL; MRSA- nasal Past Surgical History: Bowel Resection, Cholecystectomy, Orthopedic Surgery Additional Past Surgical History / Comment(s): R BRANDTA, trach with chronic home vent Past Anesthesia/Blood Transfusion Reactions: No Reported Reaction Additional Past Anesthesia/Blood Transfusion Reaction / Comment(s): recalled from previous admission Smoking Status: Never smoker
--- NOTE | 2024-08-30 12:22 | P.PN ---
Subjective Progress Note Date: 08/30/24 Principal diagnosis: Chronic hypoxic and hypercapnic respiratory failure, recurrent pneumonia left lower lobe, sepsis. This is a 49-year-old white male familiar to my service, history of paraplegia, home vent dependent, history of tracheostomy, patient had multiple admissions to the ICU for recurrent episodes of pneumonia and respiratory failure requiring ventilatory support. On his last admission patient was eventually discharged home on a home ventilator, and this was back on 08/04/2024. Patient was discharged home with a PICC line, patient was in the ER yesterday on 08/28 for abnormal labs mostly low potassium and low sodium discharged home however he came back today complaining of shortness of breath, has been ventilator dependent all along. Chest x-ray showed basically bibasilar opacities/atelectasis, doubt pneumonia, the findings in the left lower lobe are chronic. Patient did have previous history of pneumonia involving the left lower lobe and he had multiple bronchoscopies in the past. Bronchial cultures and sputum cultures have been positive in the past for mostly Pseudomonas aeruginosa. Patient was seen in the ER today, and he is already on cefepime for empiric coverage for potential left lower lobe pneumonia, patient had abnormal electrolytes with relatively low sodium low potassium, no leukocytosis, normal renal profile, blood pressure was soft, and he was given fluid boluses. Lactic acid was 2.1, D-dimer is normal, patient was admitted, and this consult was initiated. 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 Patient was seen today on 08/30/2024, patient continues to have intermittent episodes of fever with Tmax of 102, patient required norepinephrine and he remains on norepinephrine at 0.04 mcg/kg/min remains on LR at 130 cc/h remains on his home ventilator at tidal volume of 450 rate of 20 FiO2 45% and PEEP of 5. Seems comfortable, not in distress, his WBC is 3.5 hemoglobin 10.0 electrolytes are normal renal profile is normal potassium is borderline low. Patient remains on cefepime, vancomycin was added because of his previous history of MRSA, and is on cefepime for previous history of pseudomonal infection and now that the patient may be septic it is more of a reason to broaden the spectrum of antibiotics coverage with cefepime and vancomycin. Sputum cultures and blood cultures are pending. Patient does have history of pseudomonal and history of MRSA infections, and I discontinued his Zithromax today replace Zithromax with vancomycin. Viral screen is negative Legionella antigen is negative. Chest x- ray is relatively unchanged continues to show bibasilar opacities atelectasis/pneumonia. Objective - Vital Signs Vital signs: Vital Signs Temp 102.5 F H 08/30/24 08:00 Pulse 85 08/30/24 11:15 Resp 21 08/30/24 11:15 BP 89/47 08/30/24 11:15 Pulse Ox 98 08/30/24 11:15 FiO2 45 08/30/24 12:07 Intake & Output 08/29/24 08/30/24 08/30/24 18:59 06:59 18:59 Intake Total 4789.2 2896.438 1923.600 Output Total 1080 1050 Balance 3709.2 5107.334 6573.600 Weight 86.183 kg 89.8 kg Intake: IV 2098.2 1560 683 Cefepime 2 gm In Sodium 100 Chloride 0.9% 100 ml @ 25 mls/hr IVPB Q8HR [facility] Rx# :[id number] Fat Emulsion 20% 250 ml 63 In Empty Bag 1 bag @ 21 mls/hr IV Q72H [facility] Rx#: [id number] Lactated Ringers 1,000 ml 1170 1560 520 @ 130 mls/hr IV .Q7H42M [facility] Rx#:[id number] TPN 928.2 Intake, IV Titration 2691 8034.312 2063.600 Amount ACETAMINOPHEN IV (For NPO 100 ) 1,000 mg In Empty Bag 1 bag @ 400 mls/hr IVPB Q6HR [facility] Rx#:[id number] Cefepime 2 gm In Sodium 100 100 Chloride 0.9% 100 ml @ 25 mls/hr IVPB Q8HR [facility] Rx# :[id number] Lactated Ringers 1,000 ml 2000 @ 999 mls/hr IV .Q1H1M [facility] Rx#:[id number] Mvi, Adult No.4 with Vit 91 1001 364 K 10 ml Trace (Conc-1Ml/ Dose) 1 ml Sodium Chloride 4Meq/ml Vial 72 meq Magnesium Sulfate gm 2 gm Sodium Phosphate 21 mmol Potassium Acetate 34 meq In Amino Acids 5 %/ Dextrose 20 % 1,000 ml @ 91 mls/hr IV .BY DURATION [facility] Rx#:[id number] Norepinephrine 8 mg In 35.438 26.600 Sodium Chloride 0.9% 250 ml @ 0.03 MCG/KG/MIN 5. 003 mls/hr IV .Q24H [facility] Rx#:[id number] Potassium Chloride 10 meq 400 In Water For Injection 1 100ml.bag @ 100 mls/hr IVPB Q1HR [facility] Rx#: [id number] Potassium Chloride 20 meq 200 In Water For Injection 1 100ml.bag @ 50 mls/hr IVPB Q2H [facility] Rx#: [id number] Sodium Phosphate 15 mmol 250 In Dextrose 5% in Water 250 ml @ 127.5 mls/hr IVPB ONCE [facility] Rx#: [id number] Vancomycin 1,500 mg In 500 Sodium Chloride 0.9% 500 ml 500 ml @ 167 mls/hr IVPB ONCE ONE Rx#: [id number] cefTRIAXone 2 gm In 100 Sodium Chloride 0.9% 50 ml @ 100 mls/hr IVPB ONCE [facility] Rx#:[id number] Oral 0 Output: Urine 380 500 Stool 700 500 Oral Regurgitation 50 Other: Voiding Method External Catheter External Catheter External Catheter # Voids 1 1 - Exam GENERAL EXAM: Awake, alert 49-year-old male patient, intubated, has a t racheostomy in place, connected to his home ventilator. Seems fairly comfortable, not in distress. HEAD: Normocephalic. EYES: Normal reaction of pupils, equal size. NOSE: Clear with pink turbinates. THROAT: Tracheostomy tube secured in place. No erythema or exudates. NECK: No masses, no JVD. CHEST: No chest wall deformity. LUNGS: Equal air entry with coarse rhonchi bilaterally. CVS: S1 and S2 normal with no audible murmur, regular rhythm. ABDOMEN: Enterocutaneous fistula over the abdominal wall. No hepatosplenomegaly, normal bowel sounds. SPINE: No scoliosis or deformity SKIN: No rashes CENTRAL NERVOUS SYSTEM: No focal deficits, except for paraplegia. EXTREMITIES: Extensive muscle atrophy. Contractures. There is no peripheral edema. No clubbing, no cyanosis. Peripheral pulses are intact. Right below- knee amputation is noted. - Labs CBC & Chem 7: 08/30/24 03:20 08/30/24 03:20 Labs: Abnormal Lab Results - Last 24 Hours (Table) 08/29/24 08/30/24 08/30/24 Range/Units 06:50 03:20 03:20 WBC 3.57 L (4.50-10.00) 10*3/uL RBC 4.21 L (4.40-5.60) 10*6/uL Hgb 10.0 L D (13.0-17.0) g/dL Hct 34.3 L (39.6-50.0) % MCH 23.8 L (27.0-32.0) pg MCHC 29.2 L (32.0-37.0) g/dL Lymphocytes # 0.64 L (0.90-5.00) 10*3/uL Eosinophils # 0.00 L (0.04-0.35) 10*3/uL Sodium 131 L (137-145) mmol/L BUN 32 H (9-20) mg/dL Creatinine 0.36 L (0.66-1.25) mg/dL Glucose 123 H (74-99) mg/dL Ionized Calcium Nita (4.5-5.3) mg/dL Phosphorus (2.5-4.5) mg/dL Triglycerides 170.00 H (0.00-149.00) mg/dL 08/30/24 Range/Units 03:20 WBC (4.50-10.00) 10*3/uL RBC (4.40-5.60) 10*6/uL Hgb (13.0-17.0) g/dL Hct (39.6-50.0) % MCH (27.0-32.0) pg MCHC (32.0-37.0) g/dL Lymphocytes # (0.90-5.00) 10*3/uL Eosinophils # (0.04-0.35) 10*3/uL Sodium (137-145) mmol/L BUN (9-20) mg/dL Creatinine (0.66-1.25) mg/dL Glucose (74-99) mg/dL Ionized Calcium Nita 5.5 H (4.5-5.3) mg/dL Phosphorus 2.3 L (2.5-4.5) mg/dL Triglycerides (0.00-149.00) mg/dL Microbiology - Last 24 Hours (Table) 08/29/24 08:15 Gram Stain - Preliminary Sputum Assessment and Plan Assessment: Impression: Septic shock, exact source of his infection is not clear, could be lungs, could be urine or could be skin. Has the patient remain on vancomycin and cefepime, cultures are pending. Chronic hypoxic and hypercapnic respiratory failure, patient is ventilator dependent, on home ventilator. Left lower lobe atelectasis, possible pneumonia patient had previous pneumonias related to Pseudomonas infections, hence we will continue with cefepime. Vancomycin was added for broader coverage History of severe tracheal stenosis History of tracheostomy History of recurrent pneumonias involving left lower lobe Tracheobronchomalacia History of DVT History of CVA History of right below-knee amputation History of asystole/cardiac arrest 2021. 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 Patient is maintained mostly on TPN. Recommendation: Continue to monitor in the ICU Broaden spectrum of antibiotics Continue ventilatory support patient is on his own home ventilator Hemodynamic support continue norepinephrine Antibiotics/cefepime, and vancomycin GI and DVT prophylaxis: Protonix and Lovenox Nutrition support/TPN patient is chronically on TPN Continue lactated Ringer's at 130 cc/h Check cultures including blood cultures and urine cultures and sputum Monitor electrolytes daily and address accordingly Continue bronchodilators/DuoNeb updrafts 4 times daily and as needed Patient is critically ill and septic requiring pressors and requiring ventilatory support May have to consider removing his old PICC line/central line, and arrange for a new PICC line specially if his blood cultures are positive. Critical care time is 35 minutes We will continue to follow Time with Patient: Greater than 30
[2024-08-30] MEDS: ACETAMINOPHEN IV (For NPO) 1,000 MG in EMPTY BAG 1 BAG IVPB PRN (16:10)
[2024-08-30] MEDS: CEFTOLOZANE/TAZOBACTAM 3 GM in SODIUM CHLORIDE 0.9% 100 ML IV SCH (16:41)
[2024-08-30] MEDS: IPRATROPIUM-ALBUTEROL 3 ML NEB INHALATION PRN (20:26)
--- NOTE | 2024-08-30 22:54 | P.CONS ---
History of Present Illness - Reason for Consult Consult date: 08/30/24 Sepsis Requesting physician: Danika Arenas - Chief Complaint Weakness and shortness of breath x 1 day - History of Present Illness Patient is a 49-year-old male with a past medical history significant for CVA TIA DVT pneumonia history of complicated Crohn's disease in this patient who did have multiple abdominal surgeries patient also have a tracheostomy as he was failed to be extubated on one of his admission to the hospital on last admission the patient was sent home on a portable ventilator at home patient has not been brought back to the hospital for evaluation of increasing shortness of breath that apparently was getting worse for a day and also generalized weakness there was low-grade fever at home and on arrival to the ER the patient did have a low-grade temperature of 100.2 F patient did spike a fever of 102.5 F this morning patient was tachycardic mildly hypertensive and is currently on 45% FiO2 he did have minimal purulent secretions from the ET but no hemoptysis no clear history of any nausea vomiting and denies any chest pain patient is currently debated on the vent so most information has been obtained from mother at the bedside and talking to nursing staff blood work so far patient did have a white count of 3.57 creatinine 0.36 electrolyte has been normal lactic acid was 2.1 liver isms mildly elevated urine is mildly positive stool for C. difficile negative influenza RSV COVID testing and urine follicular antigen has been neg ative blood and sputum cultures currently pending patient did have a chest x-ray did shows bibasilar airspace opacities correlate for pneumonia patient has been treated with cefepime vancomycin was added today infectious disease was consulted for further management of antibiotic therapy Review of Systems Positive point and negatives has been mentioned in the HPI, complete review of systems was performed and all other systems are negative Past Medical History Past Medical History: CVA/TIA, Deep Vein Thrombosis (DVT), Pneumonia Additional Past Medical History / Comment(s): Hx CVA in 2012, DVT R arm, Crohns. colostomy Bag placed in 09/2021. History of Any Multi-Drug Resistant Organisms: MRSA, Other MDRO Year Discovered:: 07/20/24-Other MDRO; 12/14/23-MRSA MDRO Source:: Other MDRO - sputum, BAL; MRSA- nasal Past Surgical History: Bowel Resection, Cholecystectomy, Orthopedic Surgery Additional Past Surgical History / Comment(s): R BKA, trach with chronic home vent Past Anesthesia/Blood Transfusion Reactions: No Reported Reaction Additional Past Anesthesia/Blood Transfusion Reaction / Comm: recalled from previous admission Smoking Status: Never smoker - Past Family History Father Additional Family Medical History / Comment(s): DAD IN HIS TWENTIES - CAUSE UNKNOWN. Mother Family Medical History: Diabetes Mellitus Brother(s) Family Medical History: Cancer Additional Family Medical History / Comment(s): Kidney cancer as a baby. Medications and Allergies Home Medications Medication Instructions Recorded Confirmed Type Pantoprazole [Protonix] 40 mg PO BID 07/07/22 08/29/24 History Enoxaparin [Lovenox] 100 mg SQ Q12H 06/19/24 08/29/24 History Folic Acid 1 mg PO DAILY 06/19/24 08/29/24 History Loperamide HCl [Imodium A-D] 4 mg PO Q6H 06/19/24 08/29/24 History Thiamine [Vitamin B-1] 100 mg PO DAILY 06/19/24 08/29/24 History busPIRone HCl [Buspar] 15 mg PO BID 30 Days #60 tab 07/14/24 08/29/24 Rx HYDROcodone/APAP 5-325MG [[place] 1 tab PO Q6H PRN 07/17/24 08/29/24 History 5-325] Ipratropium-Albuterol Nebulize 3 ml INHALATION RT-QID #100 each 08/04/24 08/29/24 Rx [Duoneb 0.5 mg-3 mg/3 ml Soln] Ipratropium-Albuterol Nebulize 3 ml INHALATION RT-QID PRN each 08/04/24 08/29/24 Rx [Duoneb 0.5 mg-3 mg/3 ml Soln] Scopolamine 1 mg/72 Hr Patch 1 patch TRANSDERM Q72H #30 patch 08/04/24 08/29/24 Rx [TransDerm Scop] Amoxic-Pot Clav 875-125Mg 1 tab PO BID 08/19/24 08/29/24 History [Augmentin 875-125] Cholecalciferol (Vitamin D3) 1,250 mcg PO MOTH 08/29/24 08/29/24 History [Vitamin D3 (1250 Mcg = 50,000 Iu)] Cholecalciferol [Vitamin D3 (125 125 mcg PO DAILY 08/29/24 08/29/24 History Mcg = 5000 Iu)] Furosemide [Lasix] 20 mg PO DAILY 08/29/24 08/29/24 History Allergies Allergy/AdvReac Type Severity Reaction Status Date / Time piperacillin [From Zosyn] Allergy Rash/Hives Verified 08/29/24 08:45 tazobactam [From Zosyn] Allergy Rash/Hives Verified 08/29/24 08:45 Physical Exam Vitals: Vital Signs Temp Pulse Resp BP Pulse Ox FiO2 08/30/24 15:00 110 H 21 127/59 96 08/30/24 14:45 111 H 24 125/78 95 08/30/24 14:30 105 H 22 151/67 97 08/30/24 14:15 107 H 19 115/98 97 08/30/24 14:00 102 H 21 89/59 98 08/30/24 13:45 96 20 135/66 98 08/30/24 13:30 105 H 22 99/66 98 08/30/24 13:15 94 25 H 114/53 98 08/30/24 13:00 84 21 112/64 99 08/30/24 12:45 89 18 101/58 99 08/30/24 12:30 94 21 108/55 97 08/30/24 12:15 82 22 93/52 99 08/30/24 12:07 45 08/30/24 12:00 99.2 F 80 20 96/50 99 45 08/30/24 11:45 85 22 96/46 99 08/30/24 11:30 84 21 94/46 98 08/30/24 11:15 85 21 89/47 98 08/30/24 11:00 85 22 86/46 97 08/30/24 10:45 89 22 90/46 97 08/30/24 10:30 87 20 86/45 97 08/30/24 10:15 90 21 89/37 96 08/30/24 10:00 96 22 103/46 96 08/30/24 09:45 103 H 20 95/43 96 08/30/24 09:30 101 H 26 H 77/39 97 08/30/24 09:15 101 H 23 99/51 97 08/30/24 09:00 106 H 23 137/62 98 08/30/24 08:45 106 H 20 127/61 97 08/30/24 08:30 93 22 127/61 99 08/30/24 08:15 95 24 132/64 98 08/30/24 08:08 45 08/30/24 08:00 102.5 F H 93 20 101/49 98 45 08/30/24 07:45 80 20 102/55 99 08/30/24 07:30 75 20 98/53 100 08/30/24 07:15 74 20 90/46 100 08/30/24 07:00 71 20 102/49 100 45 08/30/24 06:45 73 20 99/49 100 45 08/30/24 06:30 76 20 95/55 100 45 08/30/24 06:15 78 20 121/73 100 45 08/30/24 06:00 85 22 86/44 100 45 08/30/24 05:45 71 20 91/51 100 08/30/24 05:30 76 20 94/52 100 08/30/24 05:15 86 20 99/53 100 08/30/24 05:00 98.9 F 97 20 114/59 08/30/24 04:45 90 22 103/55 99 08/30/24 04:32 45 08/30/24 04:30 89 22 118/62 98 08/30/24 04:15 89 20 115/58 100 45 08/30/24 04:00 89 23 106/54 99 45 08/30/24 03:45 90 20 113/61 99 45 08/30/24 03:30 89 21 105/55 99 45 08/30/24 03:15 95 22 91/51 100 08/30/24 03:00 78 20 94/49 100 08/30/24 02:45 80 20 105/52 99 08/30/24 02:30 80 20 102/50 99 08/30/24 02:15 89 20 117/60 99 08/30/24 02:00 101 H 22 105/53 99 45 08/30/24 01:45 82 20 104/55 100 45 08/30/24 01:30 80 20 105/53 99 45 08/30/24 01:15 77 20 98/51 100 45 08/30/24 01:00 77 20 100/50 100 45 08/30/24 00:45 78 20 100/55 100 45 06/15/25 00:30 75 20 84/41 100 45 08/30/24 00:15 76 20 90/50 100 45 08/30/24 00:14 77 20 90/50 100 45 08/30/24 00:08 45 08/30/24 00:00 75 20 91/51 100 45 08/29/24 23:45 75 20 114/57 100 08/29/24 23:30 75 20 95/52 100 08/29/24 23:15 75 20 87/49 100 08/29/24 23:00 82 20 79/41 100 08/29/24 22:30 77 20 84/44 99 08/29/24 22:15 84 20 84/44 100 08/29/24 22:00 86 20 87/44 100 45 08/29/24 21:30 86 20 111/57 100 45 08/29/24 21:00 96 18 128/58 100 45 08/29/24 20:30 96 18 116/60 99 45 08/29/24 20:00 98.4 F 98 22 91/63 98 45 08/29/24 19:58 45 08/29/24 19:35 20 45 08/29/24 19:30 78 20 109/55 99 45 08/29/24 19:00 87 20 110/63 96 08/29/24 18:30 86 21 103/55 99 08/29/24 18:00 83 20 89/55 08/29/24 17:30 73 20 86/48 08/29/24 17:00 81 20 99/64 100 08/29/24 16:30 80 20 91/50 99 08/29/24 16:00 98.2 F 73 20 111/55 100 45 08/29/24 15:30 81 20 93/55 99 Intake and Output 08/30/24 08/30/24 08/30/24 06:59 14:59 22:59 Intake Total 3160.438 2666.917 342 Output Total 750 Balance 2410.438 2666.917 342 Intake: IV 1040 1136 342 Cefepime 2 gm In Sodium 100 100 Chloride 0.9% 100 ml @ 25 mls/hr IVPB Q8HR [facility] Rx# :[id number] Fat Emulsion 20% 250 ml 126 21 In Empty Bag 1 bag @ 21 mls/hr IV Q72H [facility] Rx#: [id number] Lactated Ringers 1,000 ml 1040 910 130 @ 130 mls/hr IV .Q7H42M [facility] Rx#:[id number] Mvi, Adult No.4 with Vit 91 K 10 ml Trace (Conc-1Ml/ Dose) 1 ml Sodium Chloride 4Meq/ml Vial 72 meq Magnesium Sulfate gm 2 gm Sodium Phosphate 21 mmol Potassium Acetate 34 meq In Amino Acids 5 %/ Dextrose 20 % 1,000 ml @ 91 mls/hr IV .BY DURATION [facility] Rx#:[id number] Intake, IV Titration 2120.438 1530.917 Amount ACETAMINOPHEN IV (For NPO 100 ) 1,000 mg In Empty Bag 1 bag @ 400 mls/hr IVPB Q6HR PRN Rx#:[id number] Cefepime 2 gm In Sodium 100 Chloride 0.9% 100 ml @ 25 mls/hr IVPB Q8HR [facility] Rx# :[id number] Mvi, Adult No.4 with Vit 1785 637 K 10 ml Trace (Conc-1Ml/ Dose) 1 ml Sodium Chloride 4Meq/ml Vial 72 meq Magnesium Sulfate gm 2 gm Sodium Phosphate 21 mmol Potassium Acetate 34 meq In Amino Acids 5 %/ Dextrose 20 % 1,000 ml @ 91 mls/hr IV .BY DURATION [facility] Rx#:[id number] Norepinephrine 8 mg In 35.438 43.917 Sodium Chloride 0.9% 250 ml @ 0.03 MCG/KG/MIN 5. 003 mls/hr IV .Q24H [facility] Rx#:[id number] Potassium Chloride 20 meq 200 In Water For Injection 1 100ml.bag @ 50 mls/hr IVPB Q2H [facility] Rx#: [id number] Sodium Phosphate 15 mmol 250 In Dextrose 5% in Water 250 ml @ 127.5 mls/hr IVPB ONCE ONE Rx#: [id number] Vancomycin 1,500 mg In 500 Sodium Chloride 0.9% 500 ml 500 ml @ 167 mls/hr IVPB ONCE [facility] Rx#: [id number] Oral 0 Output: Urine 200 Stool 500 Oral Regurgitation 50 Other: Voiding Method External Catheter External Catheter # Voids 1 Weight 89.8 kg GENERAL DESCRIPTION: Middle-age male intubated through the trach HEENT: Shows Pallor , no scleral icterus. Oral mucous membrane is dry. NECK: Trachea central, no thyromegaly. LUNGS: Unlabored breathing. Decreased breath sounds at the base HEART: S1, S2, regular rate and rhythm. No loud murmur ABDOMEN: Soft, no tenderness , guarding or rigidity, no organomegaly EXTREMITIES: No edema of feet. SKIN: No rash, no masses palpable. NEUROLOGICAL: The patient is lethargic Results CBC & Chem 7: 08/30/24 03:20 08/30/24 03:20 Labs: Abnormal Lab Results - Last 24 Hours (Table) 08/29/24 08/30/24 08/30/24 Range/Units 06:50 03:20 03:20 WBC 3.57 L (4.50-10.00) 10*3/uL RBC 4.21 L (4.40-5.60) 10*6/uL Hgb 10.0 L D (13.0-17.0) g/dL Hct 34.3 L (39.6-50.0) % MCH 23.8 L (27.0-32.0) pg MCHC 29.2 L (32.0-37.0) g/dL Lymphocytes # 0.64 L (0.90-5.00) 10*3/uL Eosinophils # 0.00 L (0.04-0.35) 10*3/uL Sodium 131 L (137-145) mmol/L BUN 32 H (9-20) mg/dL Creatinine 0.36 L (0.66-1.25) mg/dL Glucose 123 H (74-99) mg/dL Ionized Calcium Nita (4.5-5.3) mg/dL Phosphorus (2.5-4.5) mg/dL Triglycerides 170.00 H (0.00-149.00) mg/dL 08/30/24 Range/Units 03:20 WBC (4.50-10.00) 10*3/uL RBC (4.40-5.60) 10*6/uL Hgb (13.0-17.0) g/dL Hct (39.6-50.0) % MCH (27.0-32.0) pg MCHC (32.0-37.0) g/dL Lymphocytes # (0.90-5.00) 10*3/uL Eosinophils # (0.04-0.35) 10*3/uL Sodium (137-145) mmol/L BUN (9-20) mg/dL Creatinine (0.66-1.25) mg/dL Glucose (74-99) mg/dL Ionized Calcium Nita 5.5 H (4.5-5.3) mg/dL Phosphorus 2.3 L (2.5-4.5) mg/dL Triglycerides (0.00-149.00) mg/dL Microbiology - Last 24 Hours (Table) 08/29/24 08:15 Gram Stain - Preliminary Sputum Assessment and Plan (1) Pneumonia Current Visit: Yes Status: Acute Code(s): J18.9 - PNEUMONIA, UNSPECIFIED ORGANISM SNOMED Code(s): 161125209 (2) Sepsis Current Visit: Yes Status: Acute Code(s): A41.9 - SEPSIS, UNSPECIFIED ORGANISM SNOMED Code(s): 80005619 Plan: 1patient is a hospital with sepsis in this patient who did have fever tachycardia elevated lactic acid upon meeting criteria for SIRS/sepsis source likely pneumonia in this patient who did have history of recurrent multidrug- resistant Pseudomonas pneumonia and will need to cover for that pathogen while waiting for the culture to be finalized 2-blood and sputum culture have been obtained results will be followed 3-discontinue cefepime 4-start the patient on Zerbaxa while waiting for the workup to be completed Mother at the bedside question answered We will follow on clinical condition and cultures to further adjust medication if needed Thank you for this consultation we will follow the patient along with you Dictation was produced using [employer] dictation software. please excuse any grammatical, word or spelling errors. Time with Patient: Greater than 30
[2024-08-30] MEDS: VANCOMYCIN 1,500 MG in SODIUM CHLORIDE 0.9% 500 ML 500 ML IVPB SCH (23:46)
--- NOTE | 2024-08-31 04:32 | US ---
EXAM: US Duplex Left Upper Extremity Veins CLINICAL HISTORY: ITS.REASON US Reason: rule out DVT TECHNIQUE: Real-time duplex ultrasound scan of the left upper extremity veins integrating B-mode two-dimensional vascular structure, Doppler spectral analysis, color flow Doppler imaging and compression. COMPARISON: No relevant prior studies available. FINDINGS: Deep veins: Unremarkable. No DVT in the internal jugular, subclavian, axillary, or brachial veins. The veins demonstrate normal color flow, are normally compressible, with normal phasic flow and/or augmentation response. Superficial veins: Unremarkable. No thrombus in the visualized basilic and cephalic veins. Soft tissues: No acute findings. IMPRESSION: Normal left upper extremity duplex venous ultrasound.
[2024-08-31 06:04] LABS: Basophils # (A) 0.01 10*3/uL (0.00-0.10); Basophils % (A) 0.5 %; Eosinophils # (A) 0.00 10*3/uL (0.04-0.35); Eosinophils % (A) 0.0 %; HCT 32.0 % (39.6-50.0); HGB 9.3 g/dL (13.0-17.0); Lymphocytes # (A) 0.39 10*3/uL (0.90-5.00); Lymphocytes % (A) 17.6 %; MCH 23.7 pg (27.0-32.0); MCHC 29.1 g/dL (32.0-37.0); MCV 81.4 fL (80.0-97.0); Monocytes # (A) 0.10 10*3/uL (0.20-1.00); Monocytes % (A) 4.5 %; Neutrophils # (A) 1.69 10*3/uL (1.80-7.70); Neutrophils % (A) 76.5 %; Platelet Count 161 10*3/uL (140-440); RBC 3.93 10*6/uL (4.40-5.60); RDW 18.1 % (11.5-14.5); WBC 2.21 10*3/uL (4.50-10.00)
[2024-08-31 06:22] LABS: African American GFR (CKD) >90 (>60 ml/min/1.73 sqM); Anion Gap 5 mmol/L; Blood Urea Nitrogen 18 mg/dL (9-20); Calcium 7.8 mg/dL (8.4-10.2); Carbon Dioxide 21 mmol/L (22-30); Chloride 106 mmol/L (98-107); Glucose 141 mg/dL (74-99); Magnesium 2.0 mg/dL (1.6-2.3); Non-African American GFR(CKD) >90 (>60 ml/min/1.73 sqM); Potassium 4.3 mmol/L (3.5-5.1); Sodium 132 mmol/L (137-145)
--- NOTE | 2024-08-31 08:21 | XR ---
EXAMINATION TYPE: XR chest 1V DATE OF EXAM: 08/31/2024 5:19 AM COMPARISON: Chest radiograph from one day prior. CLINICAL INDICATION: Male, 49 years old with history of Pneumonia; [facility] TECHNIQUE: XR chest 1V Frontal view of the chest. FINDINGS: Lungs/Pleura: Bibasilar airspace opacities There is no evidence of pleural effusion, focal consolidat ion, or pneumothorax. Pulmonary vascularity: Unremarkable. Heart/mediastinum: Cardiomediastinal silhouette is unremarkable. Musculoskeletal: No acute osseous pathology. Other findings: None Lines/Tubes: Tracheostomy cannula tip projecting over the trachea. Left central venous catheter with distal tip at the cavoatrial junction. IMPRESSION: 1. Bibasilar airspace opacities. Correlate for pneumonia. 2. Support tube and line in place. [facility], , 08/31/2024 8:19 AM
[2024-08-31] MEDS: FUROSEMIDE 10 MG/ML 2 ML VIAL IV ONE (10:34)
--- NOTE | 2024-08-31 13:46 | P.PN ---
Subjective Progress Note Date: 08/31/24 Principal diagnosis: Pneumonia. This is a 49-year-old white male familiar to my service, history of paraplegia, home vent dependent, history of tracheostomy, patient had multiple admissions to the ICU for recurrent episodes of pneumonia and respiratory failure requiring ventilatory support. On his last admission patient was eventually discharged home on a home ventilator, and this was back on 08/04/2024. Patient was discharged home with a PICC line, patient was in the ER yesterday on 08/28 for abnormal labs mostly low potassium and low sodium discharged home however he cam e back today complaining of shortness of breath, has been ventilator dependent all along. Chest x-ray showed basically bibasilar opacities/atelectasis, doubt pneumonia, the findings in the left lower lobe are chronic. Patient did have previous history of pneumonia involving the left lower lobe and he had multiple bronchoscopies in the past. Bronchial cultures and sputum cultures have been positive in the past for mostly Pseudomonas aeruginosa. Patient was seen in the ER today, and he is already on cefepime for empiric coverage for potential left lower lobe pneumonia, patient had abnormal electrolytes with relatively low sodium low potassium, no leukocytosis, normal renal profile, blood pressure was soft, and he was given fluid boluses. Lactic acid was 2.1, D-dimer is normal, patient was admitted, and this consult was initiated. 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 Patient was seen today on 08/30/2024, patient continues to have intermittent episodes of fever with Tmax of 102, patient required norepinephrine and he remains on norepinephrine at 0.04 mcg/kg/min remains on LR at 130 cc/h remains on his home ventilator at tidal volume of 450 rate of 20 FiO2 45% and PEEP of 5. Seems comfortable, not in distress, his WBC is 3.5 hemoglobin 10.0 electrolytes are normal renal profile is normal potassium is borderline low. Patient remains on cefepime, vancomycin was added because of his previous history of MRSA, and is on cefepime for previous history of pseudomonal infection and now that the patient may be septic it is more of a reason to broaden the spectrum of antibiotics coverage with cefepime and vancomycin. Sputum cultures and blood cultures are pending. Patient does have history of pseudomonal and history of MRSA infections, and I discontinued his Zithromax today replace Zithromax with vancomycin. Viral screen is negative Legionella antigen is negative. Chest x- ray is relatively unchanged continues to show bibasilar opacities atelectasis/pneumonia. Progress note dated August 31, 2024. The patient is seen today in room 252. The patient was admitted a couple days ago, to the intensive care unit. The patient is currently on mechanical ventilator, actually his home ventilator. He is on volume assist-control, rate 20, tidal volume 450, FiO2 45% PEEP of 5. The patient is getting lactated Ringer's at 130 cc an hour, TPN at 91 cc an hour, norepinephrine at 8 mcg/min. Doppler of the left upper extremity was negative. He continues on Zerbaxa, and vancomycin. We will check a procalcitonin level. Cultures thus far are negative. He does have a previous history of methicillin-resistant Staph aureus infection, and pseudomonal infections. White count was 2.21, hemoglobin 9.3, hematocrit 32, platelet count 1 61,000. D-dimer was 5.78. Sodium 132, potassium 4.3, chlorides 106, CO2 21, BUN 18, creatinine 0.28. Glucose was 141. Calcium 7.8. C. difficile study was negative. Urine Legionella antigen was negative. Microbiologic studies are currently negative. Chest x-ray shows bibasilar airspace opacities, possibly consistent with pneumonia. Objective - Vital Signs Vital signs: Vital Signs Temp 98.6 F 08/31/24 12:00 Pulse 92 08/31/24 13:00 Resp 20 08/31/24 13:00 BP 109/54 08/31/24 13:00 Pulse Ox 99 08/31/24 13:00 FiO2 45 08/31/24 12:00 Intake & Output 08/30/24 08/31/24 08/31/24 18:59 06:59 18:59 Intake Total 4898.454 3849.446 1215.484 Output Total 600 1875 550 Balance 4298.454 1974.446 665.484 Weight 95 kg 95 kg Intake: IV 2304 2954 1146 0.9 100 130 60 Cefepime 2 gm In Sodium 100 Chloride 0.9% 100 ml @ 25 mls/hr IVPB Q8HR ANNIE Rx# :[id number] Ceftolozane/Tazobactam 3 100 gm In Sodium Chloride 0.9 % 100 ml @ 100 mls/hr IV Q8HR ANNIE Rx#:[id number] Fat Emulsion 20% 250 ml 210 42 In Empty Bag 1 bag @ 21 mls/hr IV Q72H ANNIE Rx#: [id number] Lactated Ringers 1,000 ml 1040 @ 130 mls/hr IV .Q7H42M STA Rx#:[id number] Lactated Ringers 1,000 ml 390 1690 540 @ 50 mls/hr IV .Q20H ANNIE Rx#:[id number] Mvi, Adult No.4 with Vit 364 1092 546 K 10 ml Trace (Conc-1Ml/ Dose) 1 ml Sodium Chloride 4Meq/ml Vial 72 meq Magnesium Sulfate gm 2 gm Sodium Phosphate 21 mmol Potassium Acetate 34 meq In Amino Acids 5 %/ Dextrose 20 % 1,000 ml @ 91 mls/hr IV .BY DURATION [facility] Rx#:[id number] Intake, IV Titration 2594.454 895.446 69.484 Amount ACETAMINOPHEN IV (For NPO 100 200 ) 1,000 mg In Empty Bag 1 bag @ 400 mls/hr IVPB Q6HR PRN Rx#:[id number] Ceftolozane/Tazobactam 3 100 gm In Sodium Chloride 0.9 % 100 ml @ 100 mls/hr IV Q8HR ANNIE Rx#:[id number] Mvi, Adult No.4 with Vit 637 K 10 ml Trace (Conc-1Ml/ Dose) 1 ml Sodium Chloride 4Meq/ml Vial 72 meq Magnesium Sulfate gm 2 gm Sodium Phosphate 21 mmol Potassium Acetate 34 meq In Amino Acids 5 %/ Dextrose 20 % 1,000 ml @ 91 mls/hr IV .BY DURATION [facility] Rx#:[id number] Norepinephrine 8 mg In 61.454 95.446 69.484 Sodium Chloride 0.9% 250 ml @ 0.03 MCG/KG/MIN 5. 003 mls/hr IV .Q24H ANNIE Rx#:[id number] Sodium Chloride 4Meq/ml 1046 Vial 72 meq Magnesium Sulfate gm 2 gm Sodium Phosphate 21 mmol Potassium Acetate 34 meq In Amino Acids 5 %/ Dextrose 20 % 1,000 ml @ 91 mls/hr IV .BY DURATION [facility] Rx#:[id number] Sodium Phosphate 15 mmol 250 In Dextrose 5% in Water 250 ml @ 127.5 mls/hr IVPB ONCE ONE Rx#: [id number] Vancomycin 1,500 mg In 500 500 Sodium Chloride 0.9% 500 ml 500 ml @ 167 mls/hr IVPB ONCE ONE Rx#: [id number] Oral 0 Output: Urine 600 700 550 Stool 1125 Oral Regurgitation 50 Other: Voiding Method External Catheter External Catheter External Catheter # Voids 1 - Exam No acute distress, currently connected to the ventilator. He has a tracheostomy tube in place. HEENT examination is grossly unremarkable. Mucous membranes are moist. No oral lesions. Neck supple. Full range of motion. No adenopathy thyromegaly or neck vein d istention. Cardiovascular examination reveals regular rhythm rate. S1-S2 normal. No S3 or S4. No discernible murmur noted. Lungs reveal clear breath sounds. Her sounds are equal bilaterally. No adventitious lung sounds including wheezes rhonchi or crackles. Abdomen reveals an enterocutaneous fistula, normal bowel sounds. No tenderness. No masses. Extremities are intact. No cyanosis clubbing or edema. Right below the knee amputation. Skin is without rash or lesion. Neurologic examination is brief but nonfocal. He does have significant muscle atrophy, and contractures. He has a right below the knee amputation. - Labs CBC & Chem 7: 08/31/24 05:06 08/31/24 05:06 Labs: Abnormal Lab Results - Last 24 Hours (Table) 08/31/24 08/31/24 08/31/24 Range/Units 05:06 05:06 05:06 WBC 2.21 L (4.50-10.00) 10*3/uL RBC 3.93 L (4.40-5.60) 10*6/uL Hgb 9.3 L (13.0-17.0) g/dL Hct 32.0 L (39.6-50.0) % MCH 23.7 L (27.0-32.0) pg MCHC 29.1 L (32.0-37.0) g/dL Neutrophils # 1.69 L (1.80-7.70) 10*3/uL Lymphocytes # 0.39 L (0.90-5.00) 10*3/uL Monocytes # 0.10 L (0.20-1.00) 10*3/uL Eosinophils # 0.00 L (0.04-0.35) 10*3/uL D-Dimer 5.78 H (<0.60) mg/L FEU Sodium 132 L (137-145) mmol/L Carbon Dioxide 21 L (22-30) mmol/L Creatinine 0.28 L (0.66-1.25) mg/dL Glucose 141 H (74-99) mg/dL Calcium 7.8 L (8.4-10.2) mg/dL Microbiology - Last 24 Hours (Table) 08/29/24 07:00 Blood Culture - Preliminary Blood Assessment and Plan Assessment: Septic shock, source unclear. Could be related to pneumonia, or urinary tract infection. The patient continues on Zerbaxa, and vancomycin. Chronic hypoxemic and hypercapnic respiratory failure, ventilator dependent, on a home ventilator, status post tracheostomy. Left lower lobe atelectasis, possible pneumonia, with previous pseudomonal infection. History of severe tracheal stenosis, status post tracheostomy. History of recurrent pneumonia, involving the left lower lobe. Tracheobronchomalacia. History of DVT. History of CVA. History of right below-knee amputation. Previous history of asystole/cardiac arrest, 2021. History of Crohn's disease, status post enterocutaneous fistula, diverting ileostomy. Plan: Plan dated August 31, 2024. The patient is seen today in room 252. The patient's weight had on fluids, and the lactated Ringer's is cut back to 40 cc an hour. The patient will get 1 dose of Lasix IV push. Ventilator settings are noted. No blood gases today. It was apparently refused by the patient. Doppler of the left upper extremity was negative for DVT. Will check a procalcitonin level. The patient continues on norepinephrine at 8 mcg/min. He is getting TPN at 91 cc an hour. We will continue to follow make recommendations along the way. Labs, x-rays, and all medications are reviewed. Prognosis is certainly guarded. Dictation was produced using [employer] software. Please excuse any grammatical, word or spelling errors. Time with Patient: Greater than 30
--- NOTE | 2024-08-31 17:37 | P.PN ---
Progress Note - Text Progress Note Date: 08/31/24 Chief Complaint: Short of breath 49-year-old patient, follows with Dr. Murcia History of paraplegia, home vent at night, tracheostomy multiple admissions to the ICU for recurrent pneumonia. Patient's previous bronchial cultures been positive for Pseudomonas. He was discharged recently on IV cefepime. Also has a history of Crohn's disease with previous colectomy diverting ileostomy. History of DVT for which patient is on subcu Lovenox. Also had drug-resistant MRSA Pseudomonas. Patient currently does not have areas significant trach secretions. He has continues TPN. Has a right BKA. He does have slight movement in the right hand. Able to follow commands by nodding his head. Answering questions. He is scared by his elder son open. I was also the DPOA. August 30: Overnight patient started having more secretions through the tracheostomy. Vancomycin was added. Also blood pressure running low patient was put on Levophed drip. Otherwise sinus rhythm. Patient remains on the ventilator. Will also send off stool for C. difficile. Also patient IV cefepime. Getting TPN. August 31: ICU. Patient had positive fluid balance. Was given IV Lasix earlier. Remains on Levophed. Spiking fevers. Getting TPN. Stool negative for C. difficile. Patient is growing MDRO Pseudomonas aeruginosa. ID is ordered IV Zerbaxa. Which is currently not available. Patient's friend is visiting him in the ICU. Light trach secretion Active Medications Albuterol/Ipratropium (Ipratropium-Albuterol 3 Ml Neb) 3 ml INHALATION RT-Q4H PRN PRN Reason: shortness of breath Last Admin: 08/30/24 20:26 Dose: 3 ml Enoxaparin Sodium (Enoxaparin 100 Mg/Ml Syringe) 90 mg SQ Q12HR ANNIE Last Admin: 08/31/24 09:20 Dose: 90 mg Hydromorphone HCl (Hydromorphone 0.5 Mg/0.5 Ml Syringe) 0.5 mg IVP Q4HR PRN PRN Reason: Pain Last Admin: 08/31/24 17:04 Dose: 0.5 mg Parenteral Vitamin Supplement 10 ml/ Zinc/Copper/Manganese/Selenium 1 ml/ Sodium Chloride 72 meq/ Magnesium Sulfate 2 gm/ Sodium Phosphate 21 mmol/Potassium Acetate 34 meq/Amino Acids/Dextrose 1,057 mls @ 91 mls/hr IV .BY DURATION [facility] Last Admin: 08/31/24 14:36 Dose: 91 mls/hr Sodium Chloride 72 meq/Magnesium Sulfate 2 gm/ Sodium Phosphate 21 mmol/ Potassium Acetate 34 meq/ Amino Acids/Dextrose 1,046 mls @ 91 mls/hr IV .BY DURATION [facility] Last Admin: 08/31/24 02:56 Dose: 91 mls/hr Fat Emulsion Intravenous 250 (ml/ IV Solution) 250 mls @ 21 mls/hr IV Q72H ANNIE Last Admin: 08/30/24 08:28 Dose: 21 mls/hr Lactated Ringer's (Lactated Ringers) 1,000 mls @ 50 mls/hr IV .Q20H [facility] Last Admin: 08/31/24 04:55 Dose: 130 mls/hr Norepinephrine Bitartrate 8 mg (/ Sodium Chloride) 258 mls @ 5.003 mls/hr IV .Q24H [facility]; Protocol Last Titration: 08/31/24 14:44 Dose: 0.04 mcg/kg/min, 6.671 mls/hr Vancomycin HCl 1,500 mg/ (Sodium Chloride) 500 mls @ 167 mls/hr IVPB Q16H [facility] Last Admin: 08/31/24 16:32 Dose: 167 mls/hr Ceftolozane/Tazobactam 3 gm/ (Sodium Chloride) 100 mls @ 100 mls/hr IV Q8HR [facility]; Protocol Last Admin: 08/31/24 13:46 Dose: Not Given Miscellaneous Information (Pneumonia Protocol Utilized 1 Each Misc) 1 each PO ONCE PRN PRN Reason: Per Protocol Miscellaneous Information (Potassium Replacement Protocol 1 Each Misc) 1 each MISCELLANE DAILY PRN; Protocol PRN Reason: Per Protocol Miscellaneous Information (Vancomycin Trough Due 1 Each Misc) 0 each MISCELLANE DIRECTED ONE Stop: 09/01/24 07:01 Naloxone HCl (Naloxone 0.4 Mg/Ml 1 Ml Vial) 0.2 mg IV Q2M PRN PRN Reason: Opioid Reversal Ondansetron HCl (Ondansetron 4 Mg/2 Ml Vial) 4 mg IVP Q6HR PRN PRN Reason: Nausea And Vomiting Last Admin: 08/31/24 11:43 Dose: 4 mg Pantoprazole Sodium (Pantoprazole 40 Mg/10 Ml Vial) 40 mg IV DAILY ANNIE Last Admin: 08/31/24 09:20 Dose: 40 mg Social history: ] Patient started smoking at the age of [age] 1 pack a day stopped in 2017. Nonambulatory. Is cared by his son over. Who is also the DPOA Physical examination: VITAL SIGNS: Tmax 101.2 yesterday evening, 93, 22, 87 x 44, 100% on the ventilator GENERAL: BMI 27.3, laying in bed EYES: Pupils equal. Conjunctiva loan l. HEENT: External appearance of nose and ears normal, oral cavity grossly normal. NECK: JVD unable to assess; masses not palpable. Tracheostomy HEART: First and second heart sounds are normal; no edema. LUNGS: Respiratory rate increased, decreased breath sounds, some crackles ABDOMEN: Soft, nontender, liver spleen not palpable, no masses palpable. Double barrel ostomy. PSYCH: Able to answer questions by attempting to speak to normal. Not able to fully phonate MUSCULOSKELETAL: Right BKA. Left foot drop. Left hand contracture. Right hand also with contracture but able to have some movements NEUROLOGICAL: Cranial nerves grossly intact; no facial asymmetry, slight movement in the right arm. LYMPHATICS: No lymph nodes palpable in the axilla and neck. INVESTIGATIONS, reviewed in the clinical context: August 30: White count 3.5 hemoglobin 10.0 platelets 133 potassium 3.5 creatinine 0.36 August 29, 2024: White count 6.2 hemoglobin 12.3 platelets 216 sodium 128 potassium 3.1 BUN 50 creatinine 0.46 lactic acid 2.1 calcium 10.8 phosphorus 3.0 troponin I 0.016 UA: Negative for nitrite Influenza type A, type B, RSV, SARS-CoV-2: Not detected EKG tracing personally reviewed by me-normal sinus rhythm Chest x-ray film personally reviewed by me-right basilar infiltrate Previous labs: Sputum culture July 20, 2024: Pseudomonas aeruginosa Assessment plan: - basal pneumonia. Previous admission sputum was positive for Pseudomonas aeruginosa-MDRO.: Not improving on IV Zerbaxa-currently not available.. IV vancomycin added. Being followed by pulmonary, ID -Loose stools negative for C. difficile - Septic shock: Slow response Patient on Levophed - Chronic hypoxic and hypercapnic respiratory failure, vent dependent at night at home - Tracheostomy with trach collar - Right below-knee amputation - Chronic quadriparesis. Including left foot drop. Left arm contracture. Some right hand contracture. Some movement in the right arm - Crohn's disease with double barrel ostomy bag in place since 09/2021 - TPN - Full code - DPOA, son BECKY Antibiotics to continue per ID. Supportive care to continue. Past Medical History Past Medical History: CVA/TIA, Deep Vein Thrombosis (DVT), Pneumonia Additional Past Medical History / Comment(s): Hx CVA in 2012, DVT R arm, Crohns. colostomy Bag placed in 09/2021. History of Any Multi-Drug Resistant Organisms: MRSA, Other MDRO Date of last positivie culture/infection: 07/20/24-Other MDRO; 12/14/23-MRSA MDRO Source:: Other MDRO - sputum, BAL; MRSA- nasal Past Surgical History: Bowel Resection, Cholecystectomy, Orthopedic Surgery Additional Past Surgical History / Comment(s): R BKA, trach with chronic home vent Past Anesthesia/Blood Transfusion Reactions: No Reported Reaction Additional Past Anesthesia/Blood Transfusion Reaction / Comment(s): recalled from previous admission Smoking Status: Never smoker
--- NOTE | 2024-09-01 05:32 | P.PN ---
Subjective Progress Note Date: 08/31/24 Principal diagnosis: Reason for follow-up is sepsis and pneumonia Patient is a 49-year-old male with a past medical history significant for CVA TIA DVT pneumonia history of complicated Crohn's disease in this patient who did have multiple abdominal surgeries patient also have a tracheostomy has been brought to the hospital with Generalized weakness did have a fever recently for pneumonia on today's evaluation that is 08/31/2024, patient has been running a low-grade fever of 100.8 F this patient was afebrile at tachycardic but not hypotensive and is currently on 35% FiO2. Patient white count is 2.21 creatinine 0.28 sputum culture growing Pseudomonas with sensitivities pending blood culture has been negative Objective - Vital Signs Vital signs: Vital Signs Temp 98.6 F 08/31/24 12:00 Pulse 96 08/31/24 12:00 Resp 21 08/31/24 12:00 BP 138/66 08/31/24 12:00 Pulse Ox 99 08/31/24 12:00 FiO2 45 08/31/24 12:00 Intake & Output 08/30/24 08/31/24 08/31/24 18:59 06:59 18:59 Intake Total 4898.454 3849.446 1064.484 Output Total 600 1875 550 Balance 4298.454 1974.446 514.484 Weight 95 kg 95 kg Intake: IV 2304 2954 995 0.9 100 130 50 Cefepime 2 gm In Sodium 100 Chloride 0.9% 100 ml @ 25 mls/hr IVPB Q8HR ANNIE Rx# :[id number] Ceftolozane/Tazobactam 3 100 gm In Sodium Chloride 0.9 % 100 ml @ 100 mls/hr IV Q8HR ANNIE Rx#:[id number] Fat Emulsion 20% 250 ml 210 42 In Empty Bag 1 bag @ 21 mls/hr IV Q72H ANNIE Rx#: [id number] Lactated Ringers 1,000 ml 1040 @ 130 mls/hr IV .Q7H42M STA Rx#:[id number] Lactated Ringers 1,000 ml 390 1690 490 @ 50 mls/hr IV .Q20H ANNIE Rx#:[id number] Mvi, Adult No.4 with Vit 364 1092 455 K 10 ml Trace (Conc-1Ml/ Dose) 1 ml Sodium Chloride 4Meq/ml Vial 72 meq Magnesium Sulfate gm 2 gm Sodium Phosphate 21 mmol Potassium Acetate 34 meq In Amino Acids 5 %/ Dextrose 20 % 1,000 ml @ 91 mls/hr IV .BY DURATION [facility] Rx#:[id number] Intake, IV Titration 2594.454 895.446 69.484 Amount ACETAMINOPHEN IV (For NPO 100 200 ) 1,000 mg In Empty Bag 1 bag @ 400 mls/hr IVPB Q6HR PRN Rx#:[id number] Ceftolozane/Tazobactam 3 100 gm In Sodium Chloride 0.9 % 100 ml @ 100 mls/hr IV Q8HR [facility] Rx#:[id number] Mvi, Adult No.4 with Vit 637 K 10 ml Trace (Conc-1Ml/ Dose) 1 ml Sodium Chloride 4Meq/ml Vial 72 meq Magnesium Sulfate gm 2 gm Sodium Phosphate 21 mmol Potassium Acetate 34 meq In Amino Acids 5 %/ Dextrose 20 % 1,000 ml @ 91 mls/hr IV .BY DURATION [facility] Rx#:[id number] Norepinephrine 8 mg In 61.454 95.446 69.484 Sodium Chloride 0.9% 250 ml @ 0.03 MCG/KG/MIN 5. 003 mls/hr IV .Q24H [facility] Rx#:[id number] Sodium Chloride 4Meq/ml 1046 Vial 72 meq Magnesium Sulfate gm 2 gm Sodium Phosphate 21 mmol Potassium Acetate 34 meq In Amino Acids 5 %/ Dextrose 20 % 1,000 ml @ 91 mls/hr IV .BY DURATION [facility] Rx#:[id number] Sodium Phosphate 15 mmol 250 In Dextrose 5% in Water 250 ml @ 127.5 mls/hr IVPB ONCE ONE Rx#: [id number] Vancomycin 1,500 mg In 500 500 Sodium Chloride 0.9% 500 ml 500 ml @ 167 mls/hr IVPB ONCE ONE Rx#: [id number] Oral 0 Output: Urine 600 700 550 Stool 1125 Oral Regurgitation 50 Other: Voiding Method External Catheter External Catheter External Catheter # Voids 1 - Exam GENERAL DESCRIPTION: Middle-age male intubated on the vent RESPIRATORY SYSTEM: Unlabored breathing , decreased breath sounds at bases HEART: S1 S2 regular rate and rhythm , ABDOMEN: Soft , no tenderness EXTREMITIES: Swelling to the leg - Labs CBC & Chem 7: 08/31/24 05:06 08/31/24 05:06 Labs: Abnormal Lab Results - Last 24 Hours (Table) 08/31/24 08/31/24 08/31/24 Range/Units 05:06 05:06 05:06 WBC 2.21 L (4.50-10.00) 10*3/uL RBC 3.93 L (4.40-5.60) 10*6/uL Hgb 9.3 L (13.0-17.0) g/dL Hct 32.0 L (39.6-50.0) % MCH 23.7 L (27.0-32.0) pg MCHC 29.1 L (32.0-37.0) g/dL Neutrophils # 1.69 L (1.80-7.70) 10*3/uL Lymphocytes # 0.39 L (0.90-5.00) 10*3/uL Monocytes # 0.10 L (0.20-1.00) 10*3/uL Eosinophils # 0.00 L (0.04-0.35) 10*3/uL D-Dimer 5.78 H (<0.60) mg/L FEU Sodium 132 L (137-145) mmol/L Carbon Dioxide 21 L (22-30) mmol/L Creatinine 0.28 L (0.66-1.25) mg/dL Glucose 141 H (74-99) mg/dL Calcium 7.8 L (8.4-10.2) mg/dL Microbiology - Last 24 Hours (Table) 08/29/24 07:00 Blood Culture - Preliminary Blood Assessment and Plan (1) Pneumonia Current Visit: Yes Status: Acute Code(s): J18.9 - PNEUMONIA, UNSPECIFIED ORGANISM SNOMED Code(s): 857134088 (2) Sepsis Current Visit: Yes Status: Acute Code(s): A41.9 - SEPSIS, UNSPECIFIED ORGANISM SNOMED Code(s): 25146033 Plan: 1patient is a hospital with sepsis in this patient who did have fever tachycardia elevated lactic acid upon meeting criteria for SIRS/sepsis source likely pneumonia in this patient who did have history of recurrent multidrug- resistant Pseudomonas pneumonia and will need to cover for that pathogen while waiting for the culture to be finalized 2-blood cultures currently pending and sputum culture growing Pseudomonas se nsitivities pending 3-patient will be treated n Zerbaxa with no MRSA vancomycin can be discontinued Mother at the bedside question answered Dictation was produced using [employer] dictation software. please excuse any grammatical, word or spelling errors. Time with Patient: Less than 30
[2024-09-01 06:02] LABS: Basophils # (A) 0.02 10*3/uL (0.00-0.10); Basophils % (A) 0.7 %; Eosinophils # (A) 0.01 10*3/uL (0.04-0.35); Eosinophils % (A) 0.4 %; HCT 31.5 % (39.6-50.0); HGB 8.9 g/dL (13.0-17.0); Lymphocytes # (A) 0.38 10*3/uL (0.90-5.00); Lymphocytes % (A) 14.1 %; MCH 23.6 pg (27.0-32.0); MCHC 28.3 g/dL (32.0-37.0); MCV 83.6 fL (80.0-97.0); Monocytes # (A) 0.13 10*3/uL (0.20-1.00); Monocytes % (A) 4.8 %; Neutrophils # (A) 2.14 10*3/uL (1.80-7.70); Neutrophils % (A) 79.6 %; Platelet Count 153 10*3/uL (140-440); RBC 3.77 10*6/uL (4.40-5.60); RDW 18.6 % (11.5-14.5); WBC 2.69 10*3/uL (4.50-10.00)
[2024-09-01 06:22] LABS: African American GFR (CKD) >90 (>60 ml/min/1.73 sqM); Anion Gap 7 mmol/L; Blood Urea Nitrogen 22 mg/dL (9-20); Calcium 8.0 mg/dL (8.4-10.2); Carbon Dioxide 19 mmol/L (22-30); Chloride 109 mmol/L (98-107); Glucose 172 mg/dL (74-99); Magnesium 2.3 mg/dL (1.6-2.3); Non-African American GFR(CKD) >90 (>60 ml/min/1.73 sqM); Potassium 3.4 mmol/L (3.5-5.1); Sodium 135 mmol/L (137-145)
[2024-09-01] MEDS: TOBRAMYCIN SULFATE IVPB ONE (06:33)
[2024-09-01] MEDS: SODIUM CHLORIDE 0.9% IVPB ONE (06:33)
[2024-09-01] MEDS: POTASSIUM CHLORIDE 10 MEQ in WATER FOR INJECTION 1 100ML.BAG IVPB SCH (06:44)
[2024-09-01] MEDS ORDERED: VANCOMYCIN TROUGH DUE 1 EACH MISC MISCELLANE ONE (07:00)
[2024-09-01] MEDS: TOBRAMYCIN PER PHARMACY MISCELLANE SCH (07:45)
--- NOTE | 2024-09-01 08:15 | XR ---
EXAMINATION TYPE: XR chest 1V portable DATE OF EXAM: 09/01/2024 6:05 AM COMPARISON: Chest radiograph from one day prior. CLINICAL INDICATION: Male, 49 years old with history of mechanical ventilation; [facility] TECHNIQUE: XR chest 1V portable Frontal view of the chest. FINDINGS: Lungs/Pleura: Bibasilar airspace opacities There is no evidence of pleural effusion, focal consolidat ion, or pneumothorax. Pulmonary vascularity: Unremarkable. Heart/mediastinum: Cardiomediastinal silhouette is unremarkable. Musculoskeletal: No acute osseous pathology. Other findings: None Lines/Tubes: Tracheostomy cannula tip projecting over the trachea. Left central venous catheter with distal tip at the cavoatrial junction. IMPRESSION: 1. Stable Bibasilar airspace opacities. 2. Support tube and line in place. [facility], , 09/01/2024 8:13 AM
[2024-09-01] MEDS: ACETAMINOPHEN IV (For NPO) 1,000 MG in EMPTY BAG 1 BAG IVPB PRN (09:56)
--- NOTE | 2024-09-01 10:33 | P.PN ---
Subjective Progress Note Date: 09/01/24 History of present illness; This is a 49-year-old white male familiar to my service, history of paraplegia, home vent dependent, history of tracheostomy, patient had multiple admissions to the ICU for recurrent episodes of pneumonia and respiratory failure requiring ventilatory support. On his last admission patient was eventually discharged home on a home ventilator, and this was back on 08/04/2024. Patient was discharged home with a PICC line, patient was in the ER yesterday on 08/28 for abnormal labs mostly low potassium and low sodium discharged home however he came back today complaining of shortness of breath, has been ventilator dependent all along. Chest x-ray showed basically bibasilar o pacities/atelectasis, doubt pneumonia, the findings in the left lower lobe are chronic. Patient did have previous history of pneumonia involving the left lower lobe and he had multiple bronchoscopies in the past. Bronchial cultures and sputum cultures have been positive in the past for mostly Pseudomonas aeruginosa. Patient was seen in the ER today, and he is already on cefepime for empiric coverage for potential left lower lobe pneumonia, patient had abnormal electrolytes with relatively low sodium low potassium, no leukocytosis, normal renal profile, blood pressure was soft, and he was given fluid boluses. Lactic acid was 2.1, D-dimer is normal, patient was admitted, and this consult was initiated. 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 Patient was seen today on 08/30/2024, patient continues to have intermittent episodes of fever with Tmax of 102, patient required norepinephrine and he remains on norepinephrine at 0.04 mcg/kg/min remains on LR at 130 cc/h remains on his home ventilator at tidal volume of 450 rate of 20 FiO2 45% and PEEP of 5. Seems comfortable, not in distress, his WBC is 3.5 hemoglobin 10.0 electrolytes are normal renal profile is normal potassium is borderline low. Patient remains on cefepime, vancomycin was added because of his previous history of MRSA, and is on cefepime for previous history of pseudomonal infection and now that the patient may be septic it is more of a reason to broaden the spectrum of antibiotics coverage with cefepime and vancomycin. Sputum cultures and blood cultures are pending. Patient does have history of pseudomonal and history of MRSA infections, and I discontinued his Zithromax today replace Zithromax with vancomycin. Viral screen is negative Legionella antigen is negative. Chest x- ray is relatively unchanged continues to show bibasilar opacities atelectasis/pneumonia. Progress note dated August 31, 2024. The patient is seen today in room 252. The patient was admitted a couple days ago, to the intensive care unit. The patient is currently on mechanical ventilator, actually his home ventilator. He is on volume assist-control, rate 20, tidal volume 450, FiO2 45% PEEP of 5. The patient is getting lactated Ringer's at 130 cc an hour, TPN at 91 cc an hour, norepinephrine at 8 mcg/min. Doppler of the left upper extremity was negative. He continues on Zerbaxa, and vancomycin. We will check a procalcitonin level. Cultures thus far are negative. He does have a previous history of methicillin-resistant Staph aureus infection, and pseudomonal infections. White count was 2.21, hemoglobin 9.3, hematocrit 32, platelet count 1 61,000. D-dimer was 5.78. Sodium 132, potassium 4.3, chlorides 106, CO2 21, BUN 18, creatinine 0.28. Glucose was 141. Calcium 7.8. C. difficile study was negative. Urine Legionella antigen was negative. Microbiologic studies are currently negative. Chest x-ray shows bibasilar airspace opacities, possibly consistent with pneumonia. 09/01/24 - The patient is seen today in room 252. Admitted to the hospital and the intensive care unit on 08/29/2024. The patient is currently on mechanical ventilator, his one from home. He is on volume assist control, rate of 20, tidal volume of 450, FiO2 45% and PEEP of 5. He currently has LR running at 50 cc/h, TPN at 91 cc/h, Zerbaxa and tobramycin. Chest Xray done this morning showed stable airspace opacities. Cultures are positive for pseudomonas aeruginosa, awaiting sensitivities. WBCs 2.69, Hgb 8.9, Hct 31.5, PLT 153, Na 135, K 3.4, Cl 109, HCO3 19, BUN 22, Cr 0.34, Phos 2.4. REVIEW OF SYSTEMS: Pertinent positives and negatives noted in HPI. Physical Exam: General: nontoxic, no distress, appears at stated age; currently on ventilator with tracheostomy tube in place. Derm: warm, dry, intact Head: atraumatic, normocephalic, symmetric Eyes: EOMI, anicteric sclera Mouth: no lip lesion, mucus membranes moist Cardiovascular: S1 S2 reg, no murmur, rubs, or gallops Lungs: CTA bilateral, no rales, no accessory muscle use Abdominal: soft, non-tender to palpataion, no appreciable organomegaly Extremities: Significant muscle atrophy; RBK amputation Neuro: Alert, Oriented, CNII-XII grossly intact, gait normal Psych: well appearing, appropriate affect Assessment and plan #Septic shock, source unclear, possibly related to pneumonia, or urinary tract infection. The patient continues on Zerbaxa, and vancomycin. #Chronic hypoxemic and hypercapnic respiratory failure, ventilator dependent, on a home ventilator, status post tracheostomy. #Left lower lobe atelectasis, possible pneumonia, with previous pseudomonal infection. 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 #History of recurrent pneumonia, involving the left lower lobe. #Tracheobronchomalacia. #History of DVT. #History of CVA. #History of right below-knee amputation. #Previous history of asystole/cardiac arrest, 2021. #History of Crohn's disease, status post enterocutaneous fistula, diverting ileostomy Plan dated September 01, 2024. The patient is seen today in room 252. He has lactated Ringer's irunning at 50 cc/h. Ventilator settings are noted. No blood gases today. It was apparently refused by the patient. Sputum cultures positive for pseudomonas, awaiting susceptibilities, continues on Zerbaxa and Vancomycin. Norepinephrine has been discontinued. He is getting TPN at 91 cc an hour. Potassium replaced with 40 mEq potassium chloride IV. Plan is for placement of a trach collar today. We will continue to follow make recommendations along the way. Labs, x-rays, and all medications are reviewed. Prognosis is certainly guarded. Dictation was produced using Dragon dictation software. Please excuse any grammatical, word or spelling errors. GI prophylaxis: Protonix 40 mg daily DVT prophylaxis: Lovenox 90 mg subcu Q8H Dictation was produced using [employer] dictation software. please excuse any grammatical, word or spelling errors. Otoniel Christy MD PGY-1 IM Objective - Vital Signs Vital signs: Vital Signs Temp 103.1 F H 09/01/24 04:00 Pulse 89 09/01/24 07:00 Resp 20 09/01/24 07:00 BP 108/57 09/01/24 07:00 Pulse Ox 100 09/01/24 07:00 FiO2 45 09/01/24 04:03 Intake & Output 08/31/24 09/01/24 09/01/24 18:59 06:59 18:59 Intake Total 3210.816 883.210 261.251 Output Total 1700 1100 0 Balance 1510.816 -216.790 261.251 Weight 95 kg 96.4 kg Intake: IV 2052 860 260 0.9 120 110 10 ACETAMINOPHEN IV (For NPO 100 ) 1,000 mg In Empty Bag 1 bag @ 400 mls/hr IVPB Q6HR PRN Rx#:[id number] Ceftolozane/Tazobactam 3 100 gm In Sodium Chloride 0.9 % 100 ml @ 100 mls/hr IV Q8HR ANNIE Rx#:[id number] Lactated Ringers 1,000 ml 840 550 50 @ 50 mls/hr IV .Q20H ANNIE Rx#:[id number] Mvi, Adult No.4 with Vit 637 K 10 ml Trace (Conc-1Ml/ Dose) 1 ml Sodium Chloride 4Meq/ml Vial 72 meq Magnesium Sulfate gm 2 gm Sodium Phosphate 21 mmol Potassium Acetate 34 meq In Amino Acids 5 %/ Dextrose 20 % 1,000 ml @ 91 mls/hr IV .BY DURATION [facility] Rx#:[id number] Potassium Chloride 10 meq 100 In Water For Injection 1 100ml.bag @ 100 mls/hr IVPB Q1HR ANNIE Rx#: [id number] Sodium Chloride 4Meq/ml 455 Vial 72 meq Magnesium Sulfate gm 2 gm Sodium Phosphate 21 mmol Potassium Acetate 34 meq In Amino Acids 5 %/ Dextrose 20 % 1,000 ml @ 91 mls/hr IV .BY DURATION ANNIE Rx#:[id number] Tobramycin Sulfate 500 mg 100 In Sodium Chloride 0.9% 100 ml @ 112.5 mls/hr IVPB Q24H ONE Rx#: [id number] Intake, IV Titration 1158.816 23.210 1.251 Amount Norepinephrine 8 mg In 112.816 23.210 1.251 Sodium Chloride 0.9% 250 ml @ 0.03 MCG/KG/MIN 5. 003 mls/hr IV .Q24H [facility] Rx#:[id number] Sodium Chloride 4Meq/ml 1046 Vial 72 meq Magnesium Sulfate gm 2 gm Sodium Phosphate 21 mmol Potassium Acetate 34 meq In Amino Acids 5 %/ Dextrose 20 % 1,000 ml @ 91 mls/hr IV .BY DURATION [facility] Rx#:[id number] Output: Urine 1300 500 0 Stool 400 600 Other: Voiding Method External Catheter External Catheter - Labs CBC & Chem 7: 09/01/24 05:37 09/01/24 05:37 Labs: Abnormal Lab Results - Last 24 Hours (Table) 08/31/24 09/01/24 09/01/24 Range/Units 06:00 05:37 05:37 WBC 2.69 L (4.50-10.00) 10*3/uL RBC 3.77 L (4.40-5.60) 10*6/uL Hgb 8.9 L (13.0-17.0) g/dL Hct 31.5 L (39.6-50.0) % MCH 23.6 L (27.0-32.0) pg MCHC 28.3 L (32.0-37.0) g/dL Lymphocytes # 0.38 L (0.90-5.00) 10*3/uL Monocytes # 0.13 L (0.20-1.00) 10*3/uL Eosinophils # 0.01 L (0.04-0.35) 10*3/uL Sodium 135 L (137-145) mmol/L Potassium 3.4 L (3.5-5.1) mmol/L Chloride 109 H (98-107) mmol/L Carbon Dioxide 19 L (22-30) mmol/L BUN 22 H (9-20) mg/dL Creatinine 0.34 L (0.66-1.25) mg/dL Glucose 172 H (74-99) mg/dL Calcium 8.0 L (8.4-10.2) mg/dL Phosphorus 2.4 L (2.5-4.5) mg/dL Procalcitonin 0.69 H (0.02-0.50) ng/mL Microbiology - Last 24 Hours (Table) 08/29/24 07:00 Blood Culture - Preliminary Blood 08/29/24 08:15 Gram Stain - Preliminary Sputum Sputum Culture - Preliminary Pseudomonas aeruginosa
--- NOTE | 2024-09-01 15:50 | P.PN ---
Subjective Progress Note Date: 09/01/24 Principal diagnosis: Reason for follow-up is sepsis and pneumonia Patient is a 49-year-old male with a past medical history significant for CVA TIA DVT pneumonia history of complicated Crohn's disease in this patient who did have multiple abdominal surgeries patient also have a tracheostomy has been brought to the hospital with Generalized weakness did have a fever c oncerning for pneumonia on today's evaluation that is 09/01/2024, Patient is febrile with a Tmax of 100.3 0.1 F that was 4 AM, the patient remains to be intubated on the vent he is hemodynamically stable not requiring any pressor support FiO2 at 45%. Patient white count is 2.69 creatinine 0.34 sputum is growing Pseudomonas blood cultures so far negative Objective - Vital Signs Vital signs: Vital Signs Temp 100.6 F H 09/01/24 12:00 Pulse 122 H 09/01/24 15:00 Resp 27 H 09/01/24 15:00 BP 126/72 09/01/24 15:00 Pulse Ox 96 09/01/24 15:00 FiO2 45 09/01/24 12:47 Intake & Output 08/31/24 09/01/24 09/01/24 18:59 06:59 18:59 Intake Total 3210.816 870.513 9436.947 Output Total 1700 1100 250 Balance 1510.816 -946.206 7256.947 Weight 95 kg 96.4 kg Intake: IV 2052 860 1868 0.9 120 110 90 ACETAMINOPHEN IV (For NPO 100 ) 1,000 mg In Empty Bag 1 bag @ 400 mls/hr IVPB Q6HR PRN Rx#:[id number] Ceftolozane/Tazobactam 3 100 100 gm In Sodium Chloride 0.9 % 100 ml @ 100 mls/hr IV Q8HR ANNIE Rx#:[id number] Lactated Ringers 1,000 ml 840 550 450 @ 50 mls/hr IV .Q20H ANNIE Rx#:[id number] Mvi, Adult No.4 with Vit 637 K 10 ml Trace (Conc-1Ml/ Dose) 1 ml Sodium Chloride 4Meq/ml Vial 72 meq Magnesium Sulfate gm 2 gm Sodium Phosphate 21 mmol Potassium Acetate 34 meq In Amino Acids 5 %/ Dextrose 20 % 1,000 ml @ 91 mls/hr IV .BY DURATION [facility] Rx#:[id number] Potassium Chloride 10 meq 400 In Water For Injection 1 100ml.bag @ 100 mls/hr IVPB Q1HR [facility] Rx#: [id number] Sodium Chloride 4Meq/ml 455 728 Vial 72 meq Magnesium Sulfate gm 2 gm Sodium Phosphate 21 mmol Potassium Acetate 34 meq In Amino Acids 5 %/ Dextrose 20 % 1,000 ml @ 91 mls/hr IV .BY DURATION [facility] Rx#:[id number] Tobramycin Sulfate 500 mg 100 In Sodium Chloride 0.9% 100 ml @ 112.5 mls/hr IVPB Q24H [facility] Rx#: [id number] Intake, IV Titration 1158.816 23.210 3.947 Amount Norepinephrine 8 mg In 112.816 23.210 3.947 Sodium Chloride 0.9% 250 ml @ 0.03 MCG/KG/MIN 5. 003 mls/hr IV .Q24H [facility] Rx#:[id number] Sodium Chloride 4Meq/ml 1046 Vial 72 meq Magnesium Sulfate gm 2 gm Sodium Phosphate 21 mmol Potassium Acetate 34 meq In Amino Acids 5 %/ Dextrose 20 % 1,000 ml @ 91 mls/hr IV .BY DURATION [facility] Rx#:[id number] Output: Urine 1300 500 250 Stool 400 600 Other: Voiding Method External Catheter External Catheter External Catheter - Exam GENERAL DESCRIPTION: Middle-age male intubated on the vent RESPIRATORY SYSTEM: Unlabored breathing , decreased breath sounds at bases HEART: S1 S2 regular rate and rhythm , ABDOMEN: Soft , no tenderness EXTREMITIES: Swelling to the leg - Labs CBC & Chem 7: 09/01/24 05:37 09/01/24 05:37 Labs: Abnormal Lab Results - Last 24 Hours (Table) 08/31/24 09/01/24 09/01/24 Range/Units 06:00 05:37 05:37 WBC 2.69 L (4.50-10.00) 10*3/uL RBC 3.77 L (4.40-5.60) 10*6/uL Hgb 8.9 L (13.0-17.0) g/dL Hct 31.5 L (39.6-50.0) % MCH 23.6 L (27.0-32.0) pg MCHC 28.3 L (32.0-37.0) g/dL Lymphocytes # 0.38 L (0.90-5.00) 10*3/uL Monocytes # 0.13 L (0.20-1.00) 10*3/uL Eosinophils # 0.01 L (0.04-0.35) 10*3/uL Sodium 135 L (137-145) mmol/L Potassium 3.4 L (3.5-5.1) mmol/L Chloride 109 H (98-107) mmol/L Carbon Dioxide 19 L (22-30) mmol/L BUN 22 H (9-20) mg/dL Creatinine 0.34 L (0.66-1.25) mg/dL Glucose 172 H (74-99) mg/dL Calcium 8.0 L (8.4-10.2) mg/dL Phosphorus 2.4 L (2.5-4.5) mg/dL Procalcitonin 0.69 H (0.02-0.50) ng/mL Microbiology - Last 24 Hours (Table) 08/29/24 07:00 Blood Culture - Preliminary Blood 08/29/24 08:15 Gram Stain - Preliminary Sputum Sputum Culture - Preliminary Pseudomonas aeruginosa Assessment and Plan (1) Pneumonia Current Visit: Yes Status: Acute Code(s): J18.9 - PNEUMONIA, UNSPECIFIED ORGANISM SNOMED Code(s): 417370857 (2) Sepsis Current Visit: Yes Status: Acute Code(s): A41.9 - SEPSIS, UNSPECIFIED ORGANISM SNOMED Code(s): 47800944 Plan: 1patient is a hospital with sepsis in this patient who did have fever tachycardia elevated lactic acid upon meeting criteria for SIRS/sepsis source likely pneumonia in this patient who did have history of recurrent multidrug- resistant Pseudomonas pneumonia and will need to cover for that pathogen while waiting for the culture to be finalized 2-blood cultures currently pending and sputum culture growing Pseudomonas sensitivities pending 3-patient currently being treated with Zerbaxa tobramycin has been added this morning because of his persistent fever while waiting for sensitivity finalize Mother at the bedside question answered Dictation was produced using [employer] dictation software. please excuse any grammatical, word or spelling errors. Time with Patient: Less than 30
[2024-09-01] MEDS: HYDROmorphone 1 MG/ML 1 ML SYRINGE IVP PRN (16:27)
--- NOTE | 2024-09-01 18:52 | P.PN ---
Progress Note - Text Progress Note Date: 09/01/24 Chief Complaint: Short of breath 49-year-old patient, follows with Dr. Murcia History of paraplegia, home vent at night, tracheostomy multiple admissions to the ICU for recurrent pneumonia. Patient's previous bronchial cultures been positive for Pseudomonas. He was discharged recently on IV cefepime. Also has a history of Crohn's disease with previous colectomy diverting ileostomy. History of DVT for which patient is on subcu Lovenox. Also had drug-resistant MRSA Pseudomonas. Patient currently does not have areas significant trach secretions. He has continues TPN. Has a right BKA. He does have slight movement in the right hand. Able to follow commands by nodding his head. Answering questions. He is scared by his elder son open. I was also the DPOA. August 30: Overnight patient started having more secretions through the tracheostomy. Vancomycin was added. Also blood pressure running low patient was put on Levophed drip. Otherwise sinus rhythm. Patient remains on the ventilator. Will also send off stool for C. difficile. Also patient IV cefepime. Getting TPN. August 31: ICU. Patient had positive fluid balance. Was given IV Lasix earlier. Remains on Levophed. Spiking fevers. Getting TPN. Stool negative for C. difficile. Patient is growing MDRO Pseudomonas aeruginosa. ID is ordered IV Zerbaxa. Which is currently not available. Patient's friend is visiting him in the ICU. Light trach secretion September 01: ICU. On the ventilator. FiO2 45%. PEEP of 5. Continues to have light trach secretions. Sputum cultures again growing Pseudomonas. Zerbaxa was obtained and resumed. Blood pressure running low. On Levophed. Patient's younger son at the bedside. Colostomy working fine. Has been spiking fevers. Cooling blanket. Ice packs. Active Medications Albuterol/Ipratropium (Ipratropium-Albuterol 3 Ml Neb) 3 ml INHALATION RT-Q4H PRN PRN Reason: shortness of breath Last Admin: 08/30/24 20:26 Dose: 3 ml Enoxaparin Sodium (Enoxaparin 100 Mg/Ml Syringe) 90 mg SQ Q12HR ANNIE Last Admin: 09/01/24 09:20 Dose: 90 mg Hydromorphone HCl (Hydromorphone 1 Mg/Ml 1 Ml Syringe) 1 mg IVP Q4HR PRN PRN Reason: Pain Last Admin: 09/01/24 16:27 Dose: 1 mg Fat Emulsion Intravenous 250 (ml/ IV Solution) 250 mls @ 21 mls/hr IV Q72H [facility] Last Admin: 08/30/24 08:28 Dose: 21 mls/hr Lactated Ringer's (Lactated Ringers) 1,000 mls @ 50 mls/hr IV .Q20H [facility] Last Admin: 09/01/24 16:33 Dose: 50 mls/hr Norepinephrine Bitartrate 8 mg (/ Sodium Chloride) 258 mls @ 5.003 mls/hr IV .Q24H [facility]; Protocol Last Titration: 09/01/24 17:32 Dose: 0.11 mcg/kg/min, 18.344 mls/hr Ceftolozane/Tazobactam 3 gm/ (Sodium Chloride) 100 mls @ 100 mls/hr IV Q8HR [facility]; Protocol Last Admin: 09/01/24 16:32 Dose: 100 mls/hr Acetaminophen 1,000 mg/ IV (Solution) 100 mls @ 400 mls/hr IVPB Q6HR PRN PRN Reason: Fever Stop: 09/02/24 00:01 Last Admin: 09/01/24 16:08 Dose: 400 mls/hr Parenteral Vitamin Supplement 10 ml/ Zinc/Copper/Manganese/Selenium 1 ml/ Magnesium Sulfate 2 gm/ Sodium Phosphate 30 mmol/ Potassium Chloride 40 meq/ Sodium Acetate 80 meq/Amino Acids/Dextrose 1,085 mls @ 91 mls/hr IV .BY DURATION [facility] Last Admin: 09/01/24 14:14 Dose: 91 mls/hr Magnesium Sulfate 2 gm/ Sodium Phosphate 30 mmol/ Potassium Chloride 40 meq/ Sodium Acetate 80 meq/ Amino Acids/Dextrose 1,074 mls @ 91 mls/hr IV .BY DURATION [facility] Tobramycin Sulfate 610 mg/ (Sodium Chloride) 115.25 mls @ 115.25 mls/hr IVPB Q36H [facility] Miscellaneous Information (Pneumonia Protocol Utilized 1 Each Misc) 1 each PO ONCE PRN PRN Reason: Per Protocol Miscellaneous Information (Potassium Replacement Protocol 1 Each Misc) 1 each MISCELLANE DAILY PRN; Protocol PRN Reason: Per Protocol Naloxone HCl (Naloxone 0.4 Mg/Ml 1 Ml Vial) 0.2 mg IV Q2M PRN PRN Reason: Opioid Reversal Ondansetron HCl (Ondansetron 4 Mg/2 Ml Vial) 4 mg IVP Q6HR PRN PRN Reason: Nausea And Vomiting Last Admin: 09/01/24 00:03 Dose: 4 mg Pantoprazole Sodium (Pantoprazole 40 Mg/10 Ml Vial) 40 mg IV DAILY ANNIE Last Admin: 09/01/24 09:20 Dose: 40 mg Social history: ] Patient started smoking at the age of [age] 1 pack a day stopped in 2016. Nonambulatory. Is cared by his son over. Who is also the OA Physical examination: VITAL SIGNS: 103.1, 105, 22, 106 x 40, 96% on ventilator GENERAL: BMI 27.3, laying in bed EYES: Pupils equal. Conjunctiva loan l. HEENT: External appearance of nose and ears normal, oral cavity grossly normal. NECK: JVD unable to assess; masses not palpable. Tracheostomy HEART: First and second heart sounds are normal; no edema. LUNGS: Respiratory rate increased, decreased breath sounds, some crackles ABDOMEN: Soft, nontender, liver spleen not palpable, no masses palpable. Double barrel ostomy. PSYCH: Able to answer questions by attempting to speak to normal. Not able to fully phonate MUSCULOSKELETAL: Right BKA. Left foot drop. Left hand contracture. Right hand also with contracture but able to have some movements NEUROLOGICAL: Cranial nerves grossly intact; no facial asymmetry, slight movement in the right arm. L INVESTIGATIONS, reviewed in the clinical context: September 01: White count 2.6 hemoglobin 8.9 platelets 153 potassium 3.4 BUN 22 creatinine 0.34 Sputum culture: Pseudomonas aeruginosa August 30: White count 3.5 hemoglobin 10.0 platelets 133 potassium 3.5 creatinine 0.36 August 29, 2024: White count 6.2 hemoglobin 12.3 platelets 216 sodium 128 potass ium 3.1 BUN 50 creatinine 0.46 lactic acid 2.1 calcium 10.8 phosphorus 3.0 troponin I 0.016 UA: Negative for nitrite Influenza type A, type B, RSV, SARS-CoV-2: Not detected EKG tracing personally reviewed by me-normal sinus rhythm Chest x-ray film personally reviewed by me-right basilar infiltrate Previous labs: Sputum culture July 20, 2024: Pseudomonas aeruginosa Assessment plan: - basal pneumonia. Previous admission sputum was positive for Pseudomonas aeruginosa-MDRO.: Not improving on IV Zerbaxa-.. IV tobramycin IV vancomycin added. Fevers persist Being followed by pulmonary, ID -Loose stools negative for C. difficile - Septic shock: Slow response Patient on Levophed - Chronic hypoxic and hypercapnic respiratory failure, vent dependent at night at home - Tracheostomy with trach collar - Right below-knee amputation - Chronic quadriparesis. Including left foot drop. Left arm contracture. Some right hand contracture. Some movement in the right arm - Crohn's disease with double barrel ostomy bag in place since 09/2021 - TPN - Full code - DPOA, son BECKY Cooling blanket. Ice pack. IV Zerbaxa. IV tobramycin. IV Levophed. Prognosis guarded Past Medical History Past Medical History: CVA/TIA, Deep Vein Thrombosis (DVT), Pneumonia Additional Past Medical History / Comment(s): Hx CVA in 2012, DVT R arm, Crohns. colostomy Bag placed in 09/2021. History of Any Multi-Drug Resistant Organisms: MRSA, Other MDRO Date of last positivie culture/infection: 07/20/24-Other MDRO; 12/14/23-MRSA MDRO Source:: Other MDRO - sputum, BAL; MRSA- nasal Past Surgical History: Bowel Resection, Cholecystectomy, Orthopedic Surgery Additional Past Surgical History / Comment(s): R BKA, trach with chronic home vent Past Anesthesia/Blood Transfusion Reactions: No Reported Reaction Additional Past Anesthesia/Blood Transfusion Reaction / Comment(s): recalled from previous admission Smoking Status: Never smoker
[2024-09-02] MEDS ORDERED: SODIUM CHLORIDE 0.9% IVPB SCH (05:00)
[2024-09-02] MEDS ORDERED: TOBRAMYCIN SULFATE IVPB SCH (05:00)
[2024-09-02 05:52] LABS: HCT 33.5 % (39.6-50.0); HGB 9.7 g/dL (13.0-17.0); MCH 23.8 pg (27.0-32.0); MCHC 29.0 g/dL (32.0-37.0); MCV 82.1 fL (80.0-97.0); Platelet Count 130 10*3/uL (140-440); RBC 4.08 10*6/uL (4.40-5.60); RDW 18.6 % (11.5-14.5); WBC 3.64 10*3/uL (4.50-10.00)
[2024-09-02 06:28] LABS: African American GFR (CKD) >90 (>60 ml/min/1.73 sqM); Anion Gap 8 mmol/L; Blood Urea Nitrogen 23 mg/dL (9-20); Calcium 7.8 mg/dL (8.4-10.2); Carbon Dioxide 21 mmol/L (22-30); Chloride 104 mmol/L (98-107); Glucose 166 mg/dL (74-99); Magnesium 2.4 mg/dL (1.6-2.3); Non-African American GFR(CKD) >90 (>60 ml/min/1.73 sqM); Potassium 3.9 mmol/L (3.5-5.1); Sodium 133 mmol/L (137-145)
[2024-09-02] MEDS: POTASSIUM CHLORIDE 10 MEQ in WATER FOR INJECTION 1 100ML.BAG IVPB SCH (06:47)
[2024-09-02] MEDS ORDERED: Magnesium Replacement Protocol 1 EACH MISC MISCELLANE PRN (08:18)
[2024-09-02 08:25] LABS: Eosinophils # (M) 0.04 k/uL (0-0.7); Lymphocytes # (M) 0.40 k/uL (1.0-4.8); Monocytes # (M) 0.22 k/uL (0-1.0); Neutrophils # (M) 2.98 k/uL (1.3-7.7); Neutrophils % (M) 82 %; Total Cells Counted 100
--- NOTE | 2024-09-02 08:25 | XR ---
EXAMINATION TYPE: XR chest 1V portable DATE OF EXAM: 09/02/2024 5:44 AM COMPARISON: Chest radiograph from one day prior. CLINICAL INDICATION: Male, 49 years old with history of mechanical ventilation; [facility] TECHNIQUE: XR chest 1V portable Frontal view of the chest. FINDINGS: Lungs/Pleura: Bibasilar airspace opacities There is no evidence of pleural effusion, focal consolidat ion, or pneumothorax. Pulmonary vascularity: Unremarkable. Heart/mediastinum: Cardiomediastinal silhouette is unremarkable. Musculoskeletal: No acute osseous pathology. Other findings: None Lines/Tubes: Tracheostomy cannula tip projecting over the trachea. Left central venous catheter with distal tip at the cavoatrial junction. IMPRESSION: 1. Stable Bibasilar airspace opacities versus atelectasis. 2. Support tube and line in place. [facility], , 09/02/2024 8:22 AM
[2024-09-02] MEDS: ACETAMINOPHEN IV (For NPO) 1,000 MG in EMPTY BAG 1 BAG IVPB SCH (10:48)
[2024-09-02] MEDS: CALCIUM GLUCONATE IN NACL 2 GM in SALINE 1 100ML.BAG IVPB ONE (10:48)
--- NOTE | 2024-09-02 10:59 | P.PN ---
Subjective Progress Note Date: 09/02/24 History of present illness; This is a 49-year-old white male familiar to my service, history of paraplegia, home vent dependent, history of tracheostomy, patient had multiple admissions to the ICU for recurrent episodes of pneumonia and respiratory failure requiring ventilatory support. On his last admission patient was eventually discharged home on a home ventilator, and this was back on 08/04/2024. Patient was discharged home with a PICC line, patient was in the ER yesterday on 08/28 for abnormal labs mostly low potassium and low sodium discharged home however he came back today complaining of shortness of breath, has been ventilator dependent all along. Chest x-ray showed basically bibasilar o pacities/atelectasis, doubt pneumonia, the findings in the left lower lobe are chronic. Patient did have previous history of pneumonia involving the left lower lobe and he had multiple bronchoscopies in the past. Bronchial cultures and sputum cultures have been positive in the past for mostly Pseudomonas aeruginosa. Patient was seen in the ER today, and he is already on cefepime for empiric coverage for potential left lower lobe pneumonia, patient had abnormal electrolytes with relatively low sodium low potassium, no leukocytosis, normal renal profile, blood pressure was soft, and he was given fluid boluses. Lactic acid was 2.1, D-dimer is normal, patient was admitted, and this consult was initiated. 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 Patient was seen today on 08/30/2024, patient continues to have intermittent episodes of fever with Tmax of 102, patient required norepinephrine and he remains on norepinephrine at 0.04 mcg/kg/min remains on LR at 130 cc/h remains on his home ventilator at tidal volume of 450 rate of 20 FiO2 45% and PEEP of 5. Seems comfortable, not in distress, his WBC is 3.5 hemoglobin 10.0 electrolytes are normal renal profile is normal potassium is borderline low. Patient remains on cefepime, vancomycin was added because of his previous history of MRSA, and is on cefepime for previous history of pseudomonal infection and now that the patient may be septic it is more of a reason to broaden the spectrum of antibiotics coverage with cefepime and vancomycin. Sputum cultures and blood cultures are pending. Patient does have history of pseudomonal and history of MRSA infections, and I discontinued his Zithromax today replace Zithromax with vancomycin. Viral screen is negative Legionella antigen is negative. Chest x- ray is relatively unchanged continues to show bibasilar opacities atelectasis/pneumonia. Progress note dated August 31, 2024. The patient is seen today in room 252. The patient was admitted a couple days ago, to the intensive care unit. The patient is currently on mechanical ventilator, actually his home ventilator. He is on volume assist-control, rate 20, tidal volume 450, FiO2 45% PEEP of 5. The patient is getting lactated Ringer's at 130 cc an hour, TPN at 91 cc an hour, norepinephrine at 8 mcg/min. Doppler of the left upper extremity was negative. He continues on Zerbaxa, and vancomycin. We will check a procalcitonin level. Cultures thus far are negative. He does have a previous history of methicillin-resistant Staph aureus infection, and pseudomonal infections. White count was 2.21, hemoglobin 9.3, hematocrit 32, platelet count 1 61,000. D-dimer was 5.78. Sodium 132, potassium 4.3, chlorides 106, CO2 21, BUN 18, creatinine 0.28. Glucose was 141. Calcium 7.8. C. difficile study was negative. Urine Legionella antigen was negative. Microbiologic studies are currently negative. Chest x-ray shows bibasilar airspace opacities, possibly consistent with pneumonia. 09/01/24 - The patient is seen today in room 252. Admitted to the hospital and the intensive care unit on 08/29/2024. The patient is currently on mechanical ventilator, his one from home. He is on volume assist control, rate of 20, tidal volume of 450, FiO2 45% and PEEP of 5. He currently has LR running at 50 cc/h, TPN at 91 cc/h, Zerbaxa and tobramycin. Chest Xray done this morning showed stable airspace opacities. Cultures are positive for pseudomonas aeruginosa, awaiting sensitivities. WBCs 2.69, Hgb 8.9, Hct 31.5, PLT 153, Na 135, K 3.4, Cl 109, HCO3 19, BUN 22, Cr 0.34, Phos 2.4. 09/02/24 - He is seen today in room 252. Admitted to the hospital and ICU on 08/29/24. He continues on mechanical ventilator, his one from home. He remaines on volume assist control, rate of 20, tidal volume of 450, FiO2 45% and PEEP of 5. He continues to have LR running at 50 cc/h, TPN at 91 cc/h, norepinephrine at 0.13 mcg/kg/min, Zebraxa and Tobramycin. Chest XRay this morning showed stable airspace opacities. Continue to await sensitivity of pseudomonas sputum culture. Lab work shows WBCs 3.64, Hgb 9.7, Hct 33.5, PLT 130, Na 133, K 3.9, bicarb 21, BUN 23, Cr 0.36, Ca 7.8, Mg 2.4, Albumin 2.3. REVIEW OF SYSTEMS: Pertinent positives and negatives noted in HPI. Physical Exam: General: nontoxic, no distress, appears at stated age; currently on ventilator with tracheostomy tube in place. Derm: warm, dry, intact Head: atraumatic, normocephalic, symmetric Eyes: EOMI, anicteric sclera Mouth: no lip lesion, mucus membranes moist Cardiovascular: S1 S2 reg, no murmur, rubs, or gallops Lungs: CTA bilateral, no rales, no accessory muscle use Abdominal: soft, non-tender to palpataion, no appreciable organomegaly Extremities: Significant muscle atrophy; RBK amputation Neuro: Alert, Oriented, CNII-XII grossly intact, gait normal Psych: well appearing, appropriate affect Assessment and plan #Septic shock, source unclear, possibly related to pneumonia, or urinary tract infection. The patient continues on Zerbaxa, and vancomycin. #Chronic hypoxemic and hypercapnic respiratory failure, ventilator dependent, on a home ventilator, status post tracheostomy. #Left lower lobe atelectasis, possible pneumonia, with previous pseudomonal infection. 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 #History of recurrent pneumonia, involving the left lower lobe. #Tracheobronchomalacia. #History of DVT. #History of CVA. #History of right below-knee amputation. #Previous history of asystole/cardiac arrest, 2021. #History of Crohn's disease, status post enterocutaneous fistula, diverting ileostomy Plan dated September 02, 2024. The patient is seen today in room 252. He has lactated Ringer's irunning at 50 cc/h. Ventilator settings are noted above. No blood gases today. It was apparently refused by the patient. Sputum cultures positive for pseudomonas, awaiting susceptibilities, continues on Zerbaxa and Vancomycin. Norepinephrine has been resumed and is running at 0.13 mcg/kg/min, will continue to wean as possible. He is getting TPN at 91 cc an hour. Potassium replaced with 20 mEq potassium chloride IV. Will continue to monitor magnesium and calcium, replacement as needed. Corrected Calcium today ~9.5, ionized calcium of 4.3 - calcium replaced with 2 grams of calcium gluconate IV. Serum TSH and cortisol levels ordered, currently pending. We will continue to follow make recommendations along the way. Labs, x-rays, and all medications are reviewed. Prognosis is certainly guarded. Dictation was produced using [employer] software. Please excuse any grammatical, word or spelling errors. GI prophylaxis: Protonix 40 mg daily DVT prophylaxis: Lovenox 90 mg subcu Q8H Dictation was produced using [employer] dictation software. please excuse any grammatical, word or spelling errors. Otoniel Christy MD PGY-1 IM Objective - Vital Signs Vital signs: Vital Signs Temp 101.7 F H 09/02/24 04:00 Pulse 102 H 09/02/24 07:00 Resp 20 09/02/24 07:00 BP 110/52 09/02/24 07:00 Pulse Ox 100 09/02/24 07:00 FiO2 45 09/02/24 04:00 Intake & Output 09/01/24 09/02/24 09/02/24 18:59 06:59 18:59 Intake Total 2483.563 912.948 160 Output Total 950 900 0 Balance 1533.563 12.948 160 Weight 103 kg Intake: IV 2472 760 160 0.9 130 110 10 Ceftolozane/Tazobactam 3 100 100 gm In Sodium Chloride 0.9 % 100 ml @ 100 mls/hr IV Q8HR REPLACED BY [facility] Rx#:[id number] Lactated Ringers 1,000 ml 650 550 50 @ 50 mls/hr IV .Q20H REPLACED BY [facility] Rx#:[id number] Potassium Chloride 10 meq 400 100 In Water For Injection 1 100ml.bag @ 100 mls/hr IVPB Q1HR REPLACED BY [facility] Rx#: [id number] Sodium Chloride 4Meq/ml 1092 Vial 72 meq Magnesium Sulfate gm 2 gm Sodium Phosphate 21 mmol Potassium Acetate 34 meq In Amino Acids 5 %/ Dextrose 20 % 1,000 ml @ 91 mls/hr IV .BY DURATION REPLACED BY [facility] Rx#:[id number] Tobramycin Sulfate 500 mg 100 In Sodium Chloride 0.9% 100 ml @ 112.5 mls/hr IVPB Q24H [facility] Rx#: [id number] Intake, IV Titration 11.563 152.948 Amount Norepinephrine 8 mg In 11.563 152.948 Sodium Chloride 0.9% 250 ml @ 0.03 MCG/KG/MIN 5. 003 mls/hr IV .Q24H REPLACED BY [facility] Rx#:[id number] Output: Urine 250 300 0 Stool 700 600 Other: Voiding Method External Catheter External Catheter - Labs CBC & Chem 7: 09/02/24 05:15 09/02/24 05:15 Labs: Abnormal Lab Results - Last 24 Hours (Table) 09/02/24 09/02/24 09/02/24 Range/Units 05:15 05:15 05:15 WBC 3.64 L (4.50-10.00) 10*3/uL RBC 4.08 L (4.40-5.60) 10*6/uL Hgb 9.7 L (13.0-17.0) g/dL Hct 33.5 L (39.6-50.0) % MCH 23.8 L (27.0-32.0) pg MCHC 29.0 L (32.0-37.0) g/dL Plt Count 130 L (140-440) 10*3/uL Sodium 133 L (137-145) mmol/L Carbon Dioxide 21 L (22-30) mmol/L BUN 23 H (9-20) mg/dL Creatinine 0.36 L (0.66-1.25) mg/dL Glucose 166 H (74-99) mg/dL Calcium 7.8 L (8.4-10.2) mg/dL Magnesium 2.4 H (1.6-2.3) mg/dL Albumin 2.3 L (3.5-5.0) g/dL Microbiology - Last 24 Hours (Table) 08/29/24 07:00 Blood Culture - Preliminary Blood
--- NOTE | 2024-09-02 13:58 | P.PN ---
Progress Note - Text Progress Note Date: 09/02/24 Chief Complaint: Short of breath 49-year-old patient, follows with Dr. Murcia History of paraplegia, home vent at night, tracheostomy multiple admissions to the ICU for recurrent pneumonia. Patient's previous bronchial cultures been positive for Pseudomonas. He was discharged recently on IV cefepime. Also has a history of Crohn's disease with previous colectomy diverting ileostomy. History of DVT for which patient is on subcu Lovenox. Also had drug-resistant MRSA Pseudomonas. Patient currently does not have areas significant trach secretions. He has continues TPN. Has a right BKA. He does have slight movement in the right hand. Able to follow commands by nodding his head. Answering questions. He is scared by his elder son open. I was also the DPOA. August 30: Overnight patient started having more secretions through the tracheostomy. Vancomycin was added. Also blood pressure running low patient was put on Levophed drip. Otherwise sinus rhythm. Patient remains on the ventilator. Will also send off stool for C. difficile. Also patient IV cefepime. Getting TPN. August 31: ICU. Patient had positive fluid balance. Was given IV Lasix earlier. Remains on Levophed. Spiking fevers. Getting TPN. Stool negative for C. difficile. Patient is growing MDRO Pseudomonas aeruginosa. ID is ordered IV Zerbaxa. Which is currently not available. Patient's friend is visiting him in the ICU. Light trach secretion September 01: ICU. On the ventilator. FiO2 45%. PEEP of 5. Continues to have light trach secretions. Sputum cultures again growing Pseudomonas. Zerbaxa was obtained and resumed. Blood pressure running low. On Levophed. Patient's younger son at the bedside. Colostomy working fine. Has been spiking fevers. Cooling blanket. Ice packs. September 02: ICU. Ventilator FiO2 45%. PEEP of 5. Continues to have some trach secretions. IV Zerbaxa IV tobramycin. TPN lipids to continue. Also Levophed. Patient started cooling blankets since yesterday for temperatures. Along with the nurse speech therapy records were reviewed from last few admissions. Patient with multiple MBS and bedside swallow eval. No trouble with swallowing. Patient put on a chopped diet. Thin liquids. Patient did spike a fever of 101.7 earlier today. Low ionized calcium. IV gluconate given. Active Medications Albuterol/Ipratropium (Ipratropium-Albuterol 3 Ml Neb) 3 ml INHALATION RT-Q4H PRN PRN Reason: shortness of breath Last Admin: 08/30/24 20:26 Dose: 3 ml Enoxaparin Sodium (Enoxaparin 100 Mg/Ml Syringe) 90 mg SQ Q12HR ANNIE Last Admin: 09/02/24 07:56 Dose: 90 mg Hydromorphone HCl (Hydromorphone 1 Mg/Ml 1 Ml Syringe) 1 mg IVP Q4HR PRN PRN Reason: Pain Last Admin: 09/02/24 12:38 Dose: 1 mg Fat Emulsion Intravenous 250 (ml/ IV Solution) 250 mls @ 21 mls/hr IV Q72H ANNIE Last Admin: 09/02/24 07:56 Dose: 21 mls/hr Lactated Ringer's (Lactated Ringers) 1,000 mls @ 50 mls/hr IV .Q20H [facility] Last Admin: 09/02/24 10:48 Dose: 50 mls/hr Norepinephrine Bitartrate 8 mg (/ Sodium Chloride) 258 mls @ 5.003 mls/hr IV .Q24H [facility]; Protocol Last Titration: 09/02/24 06:55 Dose: 0.13 mcg/kg/min, 21.679 mls/hr Ceftolozane/Tazobactam 3 gm/ (Sodium Chloride) 100 mls @ 100 mls/hr IV Q8HR [facility]; Protocol Last Admin: 09/02/24 08:04 Dose: 100 mls/hr Parenteral Vitamin Supplement 10 ml/ Zinc/Copper/Manganese/Selenium 1 ml/ Magnesium Sulfate 2 gm/ Sodium Phosphate 30 mmol/ Potassium Chloride 40 meq/ Sodium Acetate 80 meq/Amino Acids/Dextrose 1,085 mls @ 91 mls/hr IV .BY DURATION ANNIE Stop: 09/02/24 14:14 Last Admin: 09/02/24 13:37 Dose: Not Given Magnesium Sulfate 2 gm/ Sodium Phosphate 30 mmol/ Potassium Chloride 40 meq/ Sodium Acetate 80 meq/ Amino Acids/Dextrose 1,074 mls @ 91 mls/hr IV .BY DURATION ANNIE Stop: 09/02/24 14:14 Last Admin: 09/02/24 02:15 Dose: 91 mls/hr Tobramycin Sulfate 610 mg/ (Sodium Chloride) 115.25 mls @ 115.25 mls/hr IVPB Q36H [facility] Acetaminophen 1,000 mg/ IV (Solution) 100 mls @ 400 mls/hr IVPB Q6H [facility] Stop: 09/03/24 02:44 Last Admin: 09/02/24 13:37 Dose: 400 mls/hr Parenteral Vitamin Supplement 10 ml/ Zinc/Copper/Manganese/Selenium 1 ml/ Magnesium Sulfate 1 gm/ Sodium Phosphate 30 mmol/ Potassium Chloride 40 meq/ Sodium Acetate 92 meq/Amino Acids/Dextrose 1,089 mls @ 91 mls/hr IV .BY DURATION [facility] Last Admin: 09/02/24 13:29 Dose: 91 mls/hr Magnesium Sulfate 1 gm/ Sodium Phosphate 30 mmol/ Potassium Chloride 40 meq/ Sodium Acetate 92 meq/ Amino Acids/Dextrose 1,078 mls @ 91 mls/hr IV .BY DURATION [facility] Miscellaneous Information (Pneumonia Protocol Utilized 1 Each Misc) 1 each PO ONCE PRN PRN Reason: Per Protocol Miscellaneous Information (Potassium Replacement Protocol 1 Each Misc) 1 each MISCELLANE DAILY PRN; Protocol PRN Reason: Per Protocol Miscellaneous Information (Magnesium Replacement Protocol 1 Each Misc) 1 each MISCELLANE DAILY PRN; Protocol PRN Reason: Per Protocol Naloxone HCl (Naloxone 0.4 Mg/Ml 1 Ml Vial) 0.2 mg IV Q2M PRN PRN Reason: Opioid Reversal Ondansetron HCl (Ondansetron 4 Mg/2 Ml Vial) 4 mg IVP Q6HR PRN PRN Reason: Nausea And Vomiting Last Admin: 09/01/24 19:41 Dose: 4 mg Pantoprazole Sodium (Pantoprazole 40 Mg/10 Ml Vial) 40 mg IV DAILY [facility] Last Admin: 09/02/24 07:57 Dose: 40 mg Social history: ] Patient started smoking at the age of [age] 1 pack a day stopped in 2017. Nonambulatory. Is cared by his son over. Who is also the DPOA Physical examination: VITAL SIGNS: 101.7, 112, 25, 112/53, 97% on the vent GENERAL: BMI 27.3, laying in bed EYES: Pupils equal. Conjunctiva loan l. HEENT: External appearance of nose and ears normal, oral cavity grossly normal. NECK: JVD unable to assess; masses not palpable. Tracheostomy HEART: First and second heart sounds are normal; no edema. LUNGS: Respiratory rate increased, decreased breath sounds, some crackles ABDOMEN: Soft, nontender, liver spleen not palpable, no masses palpable. Double barrel ostomy. PSYCH: Able to answer questions by attempting to speak to normal. Not able phonate MUSCULOSKELETAL: Right BKA. Left foot drop. Left hand contracture. Right hand also with contracture but able to have some movements NEUROLOGICAL: Cranial nerves grossly intact; no facial asymmetry, slight movement in the right arm. L INVESTIGATIONS, reviewed in the clinical context: September 02: White count 3.6 hemoglobin 9.7 platelets 130 potassium 3.9 BUN 23 creatinine 0.36 ionized calcium 4.3 TSH 2.7 Sputum culture: Pseudomonas aeruginosa: Sensitive to Zosyn, tobramycin, ceftazidime September 01: White count 2.6 hemoglobin 8.9 platelets 153 potassium 3.4 BUN 22 creatinine 0.34 Sputum culture: Pseudomonas aeruginosa August 30: White count 3.5 hemoglobin 10.0 platelets 133 potassium 3.5 creatinine 0.36 August 29, 2024: White count 6.2 hemoglobin 12.3 platelets 216 sodium 128 potassium 3.1 BUN 50 creatinine 0.46 lactic acid 2.1 calcium 10.8 phosphorus 3.0 troponin I 0.016 UA: Negative for nitrite Influenza type A, type B, RSV, SARS-CoV-2: Not detected EKG tracing personally reviewed by me-normal sinus rhythm Chest x-ray film personally reviewed by me-right basilar infiltrate Previous labs: Sputum culture July 20, 2024: Pseudomonas aeruginosa Assessment plan: - basal pneumonia. Previous admission sputum was positive for Pseudomonas aeruginosa-: Not improving on IV Zerbaxa-.. IV tobramycin . Fevers persist Being followed by pulmonary, ID -Loose stools negative for C. difficile - Septic shock: Slow response Patient on Levophed - Chronic hypoxic and hypercapnic respiratory failure, vent dependent at night at home - Tracheostomy with trach collar - Normocytic anemia of chronic disease and hospital-acquired anemia from blood draws Follow H&H - Thrombocytopenia likely from sepsis Follow - Right below-knee amputation - Chronic quadriparesis. Including left foot drop. Left arm contracture. Some right hand contracture. Some movement in the right arm - Crohn's disease with double barrel ostomy bag in place since 09/2021 - TPN - Full code - DPOA, son BECKY Cooling blanket. IV Zerbaxa. IV tobramycin. IV Levophed. Resume oral feeding chopped diet Past Medical History Past Medical History: CVA/TIA, Deep Vein Thrombosis (DVT), Pneumonia Additional Past Medical History / Comment(s): Hx CVA in 2012, DVT R arm, Crohns. colostomy Bag placed in 09/2021. History of Any Multi-Drug Resistant Organisms: MRSA, Other MDRO Date of last positivie culture/infection: 07/20/24-Other MDRO; 12/14/23-MRSA MDRO Source:: Other MDRO - sputum, BAL; MRSA- nasal Past Surgical History: Bowel Resection, Cholecystectomy, Orthopedic Surgery Additional Past Surgical History / Comment(s): R BKA, trach with chronic home vent Past Anesthesia/Blood Transfusion Reactions: No Reported Reaction Additional Past Anesthesia/Blood Transfusion Reaction / Comment(s): recalled from previous admission Smoking Status: Never smoker
[2024-09-02] MEDS: CEFTAZIDIME/AVIBACTAM 2.5 GM in SODIUM CHLORIDE 0.9% 100 ML IVPB SCH (16:36)
[2024-09-02] MEDS: SODIUM CHLORIDE 0.9% IVPB SCH (17:43)
[2024-09-02] MEDS: TOBRAMYCIN SULFATE IVPB SCH (17:43)
--- NOTE | 2024-09-02 22:34 | P.PN ---
Subjective Progress Note Date: 09/02/24 Principal diagnosis: Reason for follow-up is sepsis and pneumonia Patient is a 49-year-old male with a past medical history significant for CVA TIA DVT pneumonia history of complicated Crohn's disease in this patient who did have multiple abdominal surgeries patient also have a tracheostomy has been brought to the hospital with Generalized weakness did have a fever c oncerning for pneumonia on today's evaluation that is 09/02/2024, Patient running fever overnight with a temperature 100 F this morning, the patient remains to be intubated on the vent FiO2 is currently at 45%, worsening purulent secretions with 81 he continues reported patient is requiring low-dose pressor support. Patient white count is 3.64 creatinine 0.36. Culture finalized with Pseudomonas aeruginosa that is sensitive to Avycaz as well as tobramycin, Zerbaxa sensitivity not reported Objective - Vital Signs Vital signs: Vital Signs Temp 100.0 F H 09/02/24 08:00 Pulse 108 H 09/02/24 10:00 Resp 24 09/02/24 10:00 BP 77/57 09/02/24 10:00 Pulse Ox 98 09/02/24 10:00 FiO2 44 09/02/24 08:52 Intake & Output 09/01/24 09/02/24 09/02/24 18:59 06:59 18:59 Intake Total 2483.563 912.948 500 Output Total 950 900 0 Balance 1533.563 12.948 500 Weight 103 kg Intake: IV 2472 760 500 0.9 130 110 50 Ceftolozane/Tazobactam 3 100 100 gm In Sodium Chloride 0.9 % 100 ml @ 100 mls/hr IV Q8HR ANNIE Rx#:[id number] Lactated Ringers 1,000 ml 650 550 250 @ 50 mls/hr IV .Q20H ANNIE Rx#:[id number] Potassium Chloride 10 meq 400 200 In Water For Injection 1 100ml.bag @ 100 mls/hr IVPB Q1HR ANNIE Rx#: [id number] Sodium Chloride 4Meq/ml 1092 Vial 72 meq Magnesium Sulfate gm 2 gm Sodium Phosphate 21 mmol Potassium Acetate 34 meq In Amino Acids 5 %/ Dextrose 20 % 1,000 ml @ 91 mls/hr IV .BY DURATION ANNIE Rx#:[id number] Tobramycin Sulfate 500 mg 100 In Sodium Chloride 0.9% 100 ml @ 112.5 mls/hr IVPB Q24H ONE Rx#: [id number] Intake, IV Titration 11.563 152.948 Amount Norepinephrine 8 mg In 11.563 152.948 Sodium Chloride 0.9% 250 ml @ 0.03 MCG/KG/MIN 5. 003 mls/hr IV .Q24H [facility] Rx#:[id number] Output: Urine 250 300 0 Stool 700 600 Other: Voiding Method External Catheter External Catheter External Catheter - Exam GENERAL DESCRIPTION: Middle-age male intubated on the vent RESPIRATORY SYSTEM: Unlabored breathing , decreased breath sounds at bases HEART: S1 S2 regular rate and rhythm , ABDOMEN: Soft , no tenderness EXTREMITIES: Swelling to the leg - Labs CBC & Chem 7: 09/02/24 05:15 09/02/24 05:15 Labs: Abnormal Lab Results - Last 24 Hours (Table) 09/02/24 09/02/24 09/02/24 Range/Units 05:15 05:15 05:15 WBC 3.64 L (4.50-10.00) 10*3/uL RBC 4.08 L (4.40-5.60) 10*6/uL Hgb 9.7 L (13.0-17.0) g/dL Hct 33.5 L (39.6-50.0) % MCH 23.8 L (27.0-32.0) pg MCHC 29.0 L (32.0-37.0) g/dL Plt Count 130 L (140-440) 10*3/uL Lymphocytes # (Manual) 0.40 L (1.0-4.8) k/uL Sodium 133 L (137-145) mmol/L Carbon Dioxide 21 L (22-30) mmol/L BUN 23 H (9-20) mg/dL Creatinine 0.36 L (0.66-1.25) mg/dL Glucose 166 H (74-99) mg/dL Calcium 7.8 L (8.4-10.2) mg/dL Ionized Calcium Nita (4.5-5.3) mg/dL Magnesium 2.4 H (1.6-2.3) mg/dL Albumin 2.3 L (3.5-5.0) g/dL 09/02/24 Range/Units 09:01 WBC (4.50-10.00) 10*3/uL RBC (4.40-5.60) 10*6/uL Hgb (13.0-17.0) g/dL Hct (39.6-50.0) % MCH (27.0-32.0) pg MCHC (32.0-37.0) g/dL Plt Count (140-440) 10*3/uL Lymphocytes # (Manual) (1.0-4.8) k/uL Sodium (137-145) mmol/L Carbon Dioxide (22-30) mmol/L BUN (9-20) mg/dL Creatinine (0.66-1.25) mg/dL Glucose (74-99) mg/dL Calcium (8.4-10.2) mg/dL Ionized Calcium Nita 4.3 L (4.5-5.3) mg/dL Magnesium (1.6-2.3) mg/dL Albumin (3.5-5.0) g/dL Microbiology - Last 24 Hours (Table) 08/29/24 07:00 Blood Culture - Preliminary Blood Assessment and Plan (1) Pneumonia Current Visit: Yes Status: Acute Code(s): J18.9 - PNEUMONIA, UNSPECIFIED ORGANISM SNOMED Code(s): 233579429 (2) Sepsis Current Visit: Yes Status: Acute Code(s): A41.9 - SEPSIS, UNSPECIFIED ORGANISM SNOMED Code(s): 71908121 Plan: 1patient is a hospital with sepsis in this patient who did have fever tachycardia elevated lactic acid upon meeting criteria for SIRS/sepsis source likely pneumonia in this patient who did have history of recurrent multidrug- resistant Pseudomonas pneumonia and will need to cover for that pathogen while waiting for the culture to be finalized 2-blood cultures currently pending and sputum culture growing Pseudomonas that is sensitive to Avycaz and tobramycin, Zerbaxa sensitivity not reported 3-patient has been running a fever with no Zerbaxa sensitivity reported it will be discontinued patient was started on Avycaz and continue with the tobramycin Dictation was produced using [employer] dictation software. please excuse any grammatical, word or spelling errors. Time with Patient: Less than 30
--- NOTE | 2024-09-03 00:33 | PN ---
PROGRESS NOTE ADDENDUM: The patient is seen today in room 252. The patient remains on volume assist-control, rate 20, tidal volume 450, FiO2 of 45%, PEEP of 5. The patient is getting lactated Ringer's at 50 mL an hour, TPN at 91 mL/hour, and norepinephrine at 9 mcg/minute. The patient continues on Zerbaxa and tobramycin. Because of his persistent hypotension, we will check TSH and cortisol level. He may benefit from hydrocortisone therapy. He may have relative adrenal insufficiency. We will continue to follow. All labs, x-rays, and medications are reviewed. MMODL / IJN: [id number] /
[2024-09-03 04:33] LABS: HCT 30.6 % (39.6-50.0); HGB 8.8 g/dL (13.0-17.0); MCH 23.7 pg (27.0-32.0); MCHC 28.8 g/dL (32.0-37.0); MCV 82.5 fL (80.0-97.0); Platelet Count 100 10*3/uL (140-440); RBC 3.71 10*6/uL (4.40-5.60); RDW 18.5 % (11.5-14.5); WBC 9.40 10*3/uL (4.50-10.00)
[2024-09-03 05:04] LABS: African American GFR (CKD) >90 (>60 ml/min/1.73 sqM); Anion Gap 8 mmol/L; Blood Urea Nitrogen 25 mg/dL (9-20); Calcium 7.8 mg/dL (8.4-10.2); Carbon Dioxide 23 mmol/L (22-30); Chloride 99 mmol/L (98-107); Glucose 178 mg/dL (74-99); Magnesium 2.1 mg/dL (1.6-2.3); Non-African American GFR(CKD) >90 (>60 ml/min/1.73 sqM); Potassium 3.6 mmol/L (3.5-5.1); Sodium 130 mmol/L (137-145)
[2024-09-03 05:10] LABS: Lymphocytes # (M) 0.09 k/uL (1.0-4.8); Monocytes # (M) 0.38 k/uL (0-1.0); Neutrophils # (M) 8.93 k/uL (1.3-7.7); Neutrophils % (M) 31 %; Total Cells Counted 200
[2024-09-03 05:11] LABS: Toxic Granulation Present; Toxic Vacuolation Present
[2024-09-03] MEDS: VASOPRESSIN 20 UNIT in SODIUM CHLORIDE 0.9% 50 ML IV SCH (05:57)
[2024-09-03] MEDS: HYDROCORTISONE SUCCINATE 100 MG/2 ML VIAL IV SCH (08:14)
--- NOTE | 2024-09-03 08:41 | XR ---
EXAMINATION TYPE: XR chest 1V portable DATE OF EXAM: 09/03/2024 5:19 AM COMPARISON: Chest radiograph from one day prior. CLINICAL INDICATION: Male, 49 years old with history of mechanical ventilation; [facility] TECHNIQUE: XR chest 1V portable Frontal view of the chest. FINDINGS: Lungs/Pleura: Bibasilar airspace opacities There is no evidence of pleural effusion, focal consolidat ion, or pneumothorax. Pulmonary vascularity: Unremarkable. Heart/mediastinum: Cardiomediastinal silhouette is unremarkable. Musculoskeletal: No acute osseous pathology. Other findings: None Lines/Tubes: Tracheostomy cannula tip projecting over the trachea. Left central venous catheter with distal tip at the cavoatrial junction. IMPRESSION: 1. Stable Bibasilar airspace opacities versus atelectasis. 2. Support tube and line in place. [facility], , 09/03/2024 8:38 AM
[2024-09-03] MEDS: POTASSIUM CHLORIDE 10 MEQ in WATER FOR INJECTION 1 100ML.BAG IVPB SCH (08:50)
--- NOTE | 2024-09-03 09:43 | P.PN ---
Subjective Progress Note Date: 09/03/24 History of present illness; This is a 49-year-old white male familiar to my service, history of paraplegia, home vent dependent, history of tracheostomy, patient had multiple admissions to the ICU for recurrent episodes of pneumonia and respiratory failure requiring ventilatory support. On his last admission patient was eventually discharged home on a home ventilator, and this was back on 08/04/2024. Patient was discharged home with a PICC line, patient was in the ER yesterday on 08/28 for abnormal labs mostly low potassium and low sodium discharged home however he came back today complaining of shortness of breath, has been ventilator dependent all along. Chest x-ray showed basically bibasilar o pacities/atelectasis, doubt pneumonia, the findings in the left lower lobe are chronic. Patient did have previous history of pneumonia involving the left lower lobe and he had multiple bronchoscopies in the past. Bronchial cultures and sputum cultures have been positive in the past for mostly Pseudomonas aeruginosa. Patient was seen in the ER today, and he is already on cefepime for empiric coverage for potential left lower lobe pneumonia, patient had abnormal electrolytes with relatively low sodium low potassium, no leukocytosis, normal renal profile, blood pressure was soft, and he was given fluid boluses. Lactic acid was 2.1, D-dimer is normal, patient was admitted, and this consult was initiated. 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 Patient was seen today on 08/30/2024, patient continues to have intermittent episodes of fever with Tmax of 102, patient required norepinephrine and he remains on norepinephrine at 0.04 mcg/kg/min remains on LR at 130 cc/h remains on his home ventilator at tidal volume of 450 rate of 20 FiO2 45% and PEEP of 5. Seems comfortable, not in distress, his WBC is 3.5 hemoglobin 10.0 electrolytes are normal renal profile is normal potassium is borderline low. Patient remains on cefepime, vancomycin was added because of his previous history of MRSA, and is on cefepime for previous history of pseudomonal infection and now that the patient may be septic it is more of a reason to broaden the spectrum of antibiotics coverage with cefepime and vancomycin. Sputum cultures and blood cultures are pending. Patient does have history of pseudomonal and history of MRSA infections, and I discontinued his Zithromax today replace Zithromax with vancomycin. Viral screen is negative Legionella antigen is negative. Chest x- ray is relatively unchanged continues to show bibasilar opacities atelectasis/pneumonia. Progress note dated August 31, 2024. The patient is seen today in room 252. The patient was admitted a couple days ago, to the intensive care unit. The patient is currently on mechanical ventilator, actually his home ventilator. He is on volume assist-control, rate 20, tidal volume 450, FiO2 45% PEEP of 5. The patient is getting lactated Ringer's at 130 cc an hour, TPN at 91 cc an hour, norepinephrine at 8 mcg/min. Doppler of the left upper extremity was negative. He continues on Zerbaxa, and vancomycin. We will check a procalcitonin level. Cultures thus far are negative. He does have a previous history of methicillin-resistant Staph aureus infection, and pseudomonal infections. White count was 2.21, hemoglobin 9.3, hematocrit 32, platelet count 1 61,000. D-dimer was 5.78. Sodium 132, potassium 4.3, chlorides 106, CO2 21, BUN 18, creatinine 0.28. Glucose was 141. Calcium 7.8. C. difficile study was negative. Urine Legionella antigen was negative. Microbiologic studies are currently negative. Chest x-ray shows bibasilar airspace opacities, possibly consistent with pneumonia. 09/01/24 - The patient is seen today in room 252. Admitted to the hospital and the intensive care unit on 08/29/2024. The patient is currently on mechanical ventilator, his one from home. He is on volume assist control, rate of 20, tidal volume of 450, FiO2 45% and PEEP of 5. He currently has LR running at 50 cc/h, TPN at 91 cc/h, Zerbaxa and tobramycin. Chest Xray done this morning showed stable airspace opacities. Cultures are positive for pseudomonas aeruginosa, awaiting sensitivities. WBCs 2.69, Hgb 8.9, Hct 31.5, PLT 153, Na 135, K 3.4, Cl 109, HCO3 19, BUN 22, Cr 0.34, Phos 2.4. 09/02/24 - He is seen today in room 252. Admitted to the hospital and ICU on 08/29/24. He continues on mechanical ventilator, his one from home. He remaines on volume assist control, rate of 20, tidal volume of 450, FiO2 45% and PEEP of 5. He continues to have LR running at 50 cc/h, TPN at 91 cc/h, norepinephrine at 0.13 mcg/kg/min, Zebraxa and Tobramycin. Chest XRay this morning showed stable airspace opacities. Continue to await sensitivity of pseudomonas sputum culture. Lab work shows WBCs 3.64, Hgb 9.7, Hct 33.5, PLT 130, Na 133, K 3.9, bicarb 21, BUN 23, Cr 0.36, Ca 7.8, Mg 2.4, Albumin 2.3. 09/03/24 - He is seen in room 252. Admitted to the hospital and ICU on 08/29/24. He continues on mechanical ventilator, his one from home. He remaines on volume assist control, rate of 20, tidal volume of 450, FiO2 45% and PEEP of 5. He continues to have LR running at 50 cc/h, TPN at 91 cc/h, norepinephrine at 0.24 mcg/kg/min, Avycaz and Tobramycin. Zebraxa was discontinued as there was no reported sensitivity to it. Lab work shows WBCs 9.40, Hgb 8.8, Hct 30.6, PLT 100, Na 130, K 3.6, bicarb 23, BUN 25, Cr 0.51, Ca 7.8, Ionized Ca 4.6, Phos 3.3, Mg 2.1, TSH 2.710 and random cortisol 13.1. REVIEW OF SYSTEMS: Pertinent positives and negatives noted in HPI. Physical Exam: General: nontoxic, no distress, appears at stated age; currently on ventilator with tracheostomy tube in place. Derm: warm, dry, intact Head: atraumatic, normocephalic, symmetric Eyes: EOMI, anicteric sclera Mouth: no lip lesion, mucus membranes moist Cardiovascular: S1 S2 reg, no murmur, rubs, or gallops Lungs: CTA bilateral, no rales, no accessory muscle use Abdominal: soft, non-tender to palpataion, no appreciable organomegaly Extremities: Significant muscle atrophy; RBK amputation Neuro: Alert, Oriented, CNII-XII grossly intact, gait normal Psych: well appearing, appropriate affect Assessment and plan #Septic shock, source unclear, possibly related to pneumonia, or urinary tract infection. The patient continues on Zerbaxa, and vancomycin. #Chronic hypoxemic and hypercapnic respiratory failure, ventilator dependent, on a home ventilator, status post tracheostomy. #Left lower lobe atelectasis, possible pneumonia, with previous pseudomonal infection. 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 #History of recurrent pneumonia, involving the left lower lobe. #Tracheobronchomalacia. #History of DVT. #History of CVA. #History of right below-knee amputation. #Previous history of asystole/cardiac arrest, 2021. #History of Crohn's disease, status post enterocutaneous fistula, diverting ileostomy Plan dated September 03, 2024. The patient is seen today in room 252. He has lactated Ringer's irunning at 50 cc/h. Ventilator settings are noted above. No blood gases today. It was apparently refused by the patient. Sputum cultures positive for pseudomonas, awaiting susceptibilities, continues on Avycaz and Tobramycin. Norepinephrine is running at 0.24 mcg/kg/min, will continue to wean as possible. He is getting TPN at 91 cc an hour. Will continue to monitor potassium, magnesium and calcium, replacement as needed. Ionized calcium of 4.6 - Discussed with pharmacy, supplementation will be added to TPN as necessary, will continue to monitor. TSH 2.710 and cortisol 13.1. Initiated on solucortef 100 mg Q8H. We will continue to follow make recommendations along the way. Labs, x-rays, and all medications are reviewed. Prognosis is certainly guarded. Dictation was produced using [employer] software. Please excuse any grammatical, word or spelling errors. GI prophylaxis: Protonix 40 mg daily DVT prophylaxis: Lovenox 90 mg subcu Q8H Dictation was produced using [employer] dictation software. please excuse any grammatical, word or spelling errors. Otoniel Christy MD PGY-1 IM Objective - Vital Signs Vital signs: Vital Signs Temp 99.5 F 09/03/24 00:00 Pulse 97 09/03/24 07:00 Resp 24 09/03/24 07:00 BP 109/51 09/03/24 07:00 Pulse Ox 93 L 09/03/24 07:37 FiO2 45 09/03/24 07:37 Intake & Output 09/02/24 09/03/24 09/03/24 18:59 06:59 18:59 Intake Total 2971.198 1058.422 60 Output Total 1400 350 0 Balance 1571.198 708.422 60 Weight 104.1 kg Intake: IV 1200 670 60 0.9 120 120 10 Ceftolozane/Tazobactam 3 100 gm In Sodium Chloride 0.9 % 100 ml @ 100 mls/hr IV Q8HR [facility] Rx#:[id number] Fat Emulsion 20% 250 ml 180 In Empty Bag 1 bag @ 21 mls/hr IV Q72H ANNIE Rx#: [id number] Lactated Ringers 1,000 ml 600 550 50 @ 50 mls/hr IV .Q20H [facility] Rx#:[id number] Potassium Chloride 10 meq 200 In Water For Injection 1 100ml.bag @ 100 mls/hr IVPB Q1HR [facility]IE Rx#: [id number] Intake, IV Titration 1291.198 388.422 Amount ACETAMINOPHEN IV (For NPO 100 ) 1,000 mg In Empty Bag 1 bag @ 400 mls/hr IVPB Q6HR PRN Rx#:[id number] Calcium Gluconate in NaCl 100 2 gm In Saline 1 100ml. bag @ 100 mls/hr IVPB ONCE ONE Rx#:[id number] Ceftazidime/Avibactam 2.5 100 gm In Sodium Chloride 0. 9% 100 ml @ 50 mls/hr IVPB Q8HR ANNIE Rx#: [id number] Ceftolozane/Tazobactam 3 100 gm In Sodium Chloride 0.9 % 100 ml @ 100 mls/hr IV Q8HR ANNIE Rx#:[id number] Magnesium Sulfate gm 1 gm 728 Sodium Phosphate 30 mmol Potassium Chloride 40 meq Sodium Acetate 92 meq In Amino Acids 5 %/ Dextrose 20 % 1,000 ml @ 91 mls/hr IV .BY DURATION ANNIE Rx#:[id number] Norepinephrine 8 mg In 163.198 388.422 Sodium Chloride 0.9% 250 ml @ 0.03 MCG/KG/MIN 5. 003 mls/hr IV .Q24H [facility] Rx#:[id number] Oral 480 Output: Urine 500 350 0 Stool 900 Other: Voiding Method External Catheter External Catheter External Catheter # Voids 1 - Labs CBC & Chem 7: 09/03/24 03:48 09/03/24 03:48 Labs: Abnormal Lab Results - Last 24 Hours (Table) 09/02/24 09/02/24 09/03/24 Range/Units 05:15 09:01 03:48 RBC 3.71 L (4.40-5.60) 10*6/uL Hgb 8.8 L (13.0-17.0) g/dL Hct 30.6 L (39.6-50.0) % MCH 23.7 L (27.0-32.0) pg MCHC 28.8 L (32.0-37.0) g/dL Plt Count 100 L (140-440) 10*3/uL Immature Gran # 0.05 H (0.00-0.04) 10*3/uL Neutrophils # (Manual) 8.93 H (1.3-7.7) k/uL Lymphocytes # (Manual) 0.40 L 0.09 L (1.0-4.8) k/uL Sodium (137-145) mmol/L BUN (9-20) mg/dL Creatinine (0.66-1.25) mg/dL Glucose (74-99) mg/dL Calcium (8.4-10.2) mg/dL Ionized Calcium Nita 4.3 L (4.5-5.3) mg/dL 09/03/24 Range/Units 03:48 RBC (4.40-5.60) 10*6/uL Hgb (13.0-17.0) g/dL Hct (39.6-50.0) % MCH (27.0-32.0) pg MCHC (32.0-37.0) g/dL Plt Count (140-440) 10*3/uL Immature Gran # (0.00-0.04) 10*3/uL Neutrophils # (Manual) (1.3-7.7) k/uL Lymphocytes # (Manual) (1.0-4.8) k/uL Sodium 130 L (137-145) mmol/L BUN 25 H (9-20) mg/dL Creatinine 0.51 L (0.66-1.25) mg/dL Glucose 178 H (74-99) mg/dL Calcium 7.8 L (8.4-10.2) mg/dL Ionized Calcium Nita (4.5-5.3) mg/dL Microbiology - Last 24 Hours (Table) 08/29/24 08:15 Gram Stain - Final Sputum Sputum Culture - Final Pseudomonas aeruginosa
--- NOTE | 2024-09-03 19:52 | P.PN ---
Progress Note - Text Progress Note Date: 09/03/24 Chief Complaint: Short of breath 49-year-old patient, follows with Dr. Murcia History of paraplegia, home vent at night, tracheostomy multiple admissions to the ICU for recurrent pneumonia. Patient's previous bronchial cultures been positive for Pseudomonas. He was discharged recently on IV cefepime. Also has a history of Crohn's disease with previous colectomy diverting ileostomy. History of DVT for which patient is on subcu Lovenox. Also had drug-resistant MRSA Pseudomonas. Patient currently does not have areas significant trach secretions. He has continues TPN. Has a right BKA. He does have slight movement in the right hand. Able to follow commands by nodding his head. Answering questions. He is scared by his elder son open. I was also the DPOA. August 30: Overnight patient started having more secretions through the tracheostomy. Vancomycin was added. Also blood pressure running low patient was put on Levophed drip. Otherwise sinus rhythm. Patient remains on the ventilator. Will also send off stool for C. difficile. Also patient IV cefepime. Getting TPN. August 31: ICU. Patient had positive fluid balance. Was given IV Lasix earlier. Remains on Levophed. Spiking fevers. Getting TPN. Stool negative for C. difficile. Patient is growing MDRO Pseudomonas aeruginosa. ID is ordered IV Zerbaxa. Which is currently not available. Patient's friend is visiting him in the ICU. Light trach secretion September 01: ICU. On the ventilator. FiO2 45%. PEEP of 5. Continues to have light trach secretions. Sputum cultures again growing Pseudomonas. Zerbaxa was obtained and resumed. Blood pressure running low. On Levophed. Patient's younger son at the bedside. Colostomy working fine. Has been spiking fevers. Cooling blanket. Ice packs. September 02: ICU. Ventilator FiO2 45%. PEEP of 5. Continues to have some trach secretions. IV Zerbaxa IV tobramycin. TPN lipids to continue. Also Levophed. Patient started cooling blankets since yesterday for temperatures. Along with the nurse speech therapy records were reviewed from last few admissions. Patient with multiple MBS and bedside swallow eval. No trouble with swallowing. Patient put on a chopped diet. Thin liquids. Patient did spike a fever of 101.7 earlier today. Low ionized calcium. IV gluconate given. September 03: ICU. On ventilator FiO2 45%. PEEP of 5. Mild trach secretions. Getting IV TPN lipids. IV tobramycin. Zerbaxa was substituted to Avycaz. By ID. No fever per se since yesterday. For blood pressure patient is also on Levophed and vasopressin. Active Medications Albuterol/Ipratropium (Ipratropium-Albuterol 3 Ml Neb) 3 ml INHALATION RT-Q4H PRN PRN Reason: shortness of breath Last Admin: 08/30/24 20:26 Dose: 3 ml Enoxaparin Sodium (Enoxaparin 100 Mg/Ml Syringe) 90 mg SQ Q12HR [facility]IE Last Admin: 09/03/24 19:40 Dose: 90 mg Hydrocortisone Sodium Succinate (Hydrocortisone Succinate 100 Mg/2 Ml Vial) 100 mg IV Q8HR ANNIE Last Admin: 09/03/24 15:55 Dose: 100 mg Hydromorphone HCl (Hydromorphone 1 Mg/Ml 1 Ml Syringe) 1 mg IVP Q4HR PRN PRN Reason: Pain Last Admin: 09/03/24 19:40 Dose: 1 mg Fat Emulsion Intravenous 250 (ml/ IV Solution) 250 mls @ 21 mls/hr IV Q72H [facility] Last Admin: 09/02/24 07:56 Dose: 21 mls/hr Lactated Ringer's (Lactated Ringers) 1,000 mls @ 50 mls/hr IV .Q20H [facility] Last Admin: 09/03/24 08:19 Dose: 50 mls/hr Norepinephrine Bitartrate 8 mg (/ Sodium Chloride) 258 mls @ 5.003 mls/hr IV .Q24H ANNIE; Protocol Last Titration: 09/03/24 19:02 Dose: 0.18 mcg/kg/min, 30.018 mls/hr Ceftazidime/Avibactam 2.5 gm/ (Sodium Chloride) 100 mls @ 50 mls/hr IVPB Q8HR [facility]; Protocol Last Admin: 09/03/24 16:04 Dose: 50 mls/hr Vasopressin 20 unit/ Sodium (Chloride) 51 mls @ 4.59 mls/hr IV .Q11H7M [facility]; Protocol Last Admin: 09/03/24 11:53 Dose: 0.03 units/min, 4.59 mls/hr Tobramycin Sulfate 610 mg/ (Sodium Chloride) 115.25 mls @ 115.25 mls/hr IVPB Q48H [facility] Parenteral Vitamin Supplement 10 ml/ Zinc/Copper/Manganese/Selenium 1 ml/ Magnesium Sulfate 1 gm/ Sodium Phosphate 30 mmol/ Potassium Chloride 40 meq/ Sodium Acetate 100 meq / Calcium Gluconate 0.5 gm/Amino Acids/Dextrose 1,098 mls @ 65 mls/hr IV .BY DURATION [facility] Last Admin: 09/03/24 15:55 Dose: 65 mls/hr Magnesium Sulfate 1 gm/ Sodium Phosphate 30 mmol/ Potassium Chloride 40 meq/ Sodium Acetate 100 meq/ Calcium Gluconate 0.5 gm/ Amino Acids/Dextrose 1,087 mls @ 65 mls/hr IV .BY DURATION [facility] Miscellaneous Information (Pneumonia Protocol Utilized 1 Each Misc) 1 each PO ONCE PRN PRN Reason: Per Protocol Miscellaneous Information (Potassium Replacement Protocol 1 Each Misc) 1 each MISCELLANE DAILY PRN; Protocol PRN Reason: Per Protocol Miscellaneous Information (Magnesium Replacement Protocol 1 Each Misc) 1 each MISCELLANE DAILY PRN; Protocol PRN Reason: Per Protocol Naloxone HCl (Naloxone 0.4 Mg/Ml 1 Ml Vial) 0.2 mg IV Q2M PRN PRN Reason: Opioid Reversal Ondansetron HCl (Ondansetron 4 Mg/2 Ml Vial) 4 mg IVP Q6HR PRN PRN Reason: Nausea And Vomiting Last Admin: 09/01/24 19:41 Dose: 4 mg Pantoprazole Sodium (Pantoprazole 40 Mg/10 Ml Vial) 40 mg IV DAILY [facility] Last Admin: 09/03/24 07:56 Dose: 40 mg Social history: ] Patient started smoking at the age of [age] 1 pack a day stopped in 2017. Nonambulatory. Is cared by his son over. Who is also the [facility] Physical examination: VITAL SIGNS: 97.8, 89, 22, 128 x 58, 97% on the ventilator 45% GENERAL: BMI 27.3, laying in bed, awake EYES: Pupils equal. Conjunctiva loan l. HEENT: External appearance of nose and ears normal, oral cavity grossly normal. NECK: JVD unable to assess; masses not palpable. Tracheostomy HEART: First and second heart sounds are normal; no edema. LUNGS: Respiratory rate increased, decreased breath sounds, some crackles ABDOMEN: Soft, nontender, liver spleen not palpable, no masses palpable. Double barrel ostomy. PSYCH: Able to answer questions by attempting to speak to normal. Not able phonate MUSCULOSKELETAL: Right BKA. Left foot drop. Left hand contracture. Right hand also with contracture but able to have some movements NEUROLOGICAL: Cranial nerves grossly intact; no facial asymmetry, slight movement in the right arm. Awake L INVESTIGATIONS, reviewed in the clinical context: September 03: White count 9.4 hemoglobin 8.8 platelet 100 potassium 3.6 BUN 25 creatinine 0.51 September 02: White count 3.6 hemoglobin 9.7 platelets 130 potassium 3.9 BUN 23 creat inine 0.36 ionized calcium 4.3 TSH 2.7 Sputum culture: Pseudomonas aeruginosa: Sensitive to Zosyn, tobramycin, ceftazidime September 01: White count 2.6 hemoglobin 8.9 platelets 153 potassium 3.4 BUN 22 cr eatinine 0.34 Sputum culture: Pseudomonas aeruginosa August 30: White count 3.5 hemoglobin 10.0 platelets 133 potassium 3.5 creatinine 0.36 August 29, 2024: White count 6.2 hemoglobin 12.3 platelets 216 sodium 128 potassium 3.1 BUN 50 creatinine 0.46 lactic acid 2.1 calcium 10.8 phosphorus 3.0 troponin I 0.016 UA: Negative for nitrite Influenza type A, type B, RSV, SARS-CoV-2: Not detected EKG tracing personally reviewed by me-normal sinus rhythm Chest x-ray film personally reviewed by me-right basilar infiltrate Previous labs: Sputum culture July 20, 2024: Pseudomonas aeruginosa Assessment plan: - basal pneumonia. Previous admission sputum was positive for Pseudomonas aeruginosa-: Slow to respond on IV Avycaz-.. IV tobramycin . Fevers improving Being followed by pulmonary, ID -Loose stools negative for C. difficile - Septic shock: Slow to response Patient on Levophed. Vasopressin added - Chronic hypoxic and hypercapnic respiratory failure, vent dependent at night at home - Tracheostomy with trach collar - Normocytic anemia of chronic disease and hospital-acquired anemia from blood draws Follow H&H - Thrombocytopenia likely from sepsis Follow - Right below-knee amputation - Chronic quadriparesis. Including left foot drop. Left arm contracture. Some right hand contracture. Some movement in the right arm - Crohn's disease with double barrel ostomy bag in place since 09/2021 - TPN - Full code - DPOA, son BECKY Continue IV antibiotics. Fluids. TPN lipids. Eating intermittently Past Medical History Past Medical History: CVA/TIA, Deep Vein Thrombosis (DVT), Pneumonia Additional Past Medical History / Comment(s): Hx CVA in 2012, DVT R arm, Crohns. colostomy Bag placed in 09/2021. History of Any Multi-Drug Resistant Organisms: MRSA, Other MDRO Date of last positivie culture/infection: 07/20/24-Other MDRO; 12/14/23-MRSA MDRO Source:: Other MDRO - sputum, BAL; MRSA- nasal Past Surgical History: Bowel Resection, Cholecystectomy, Orthopedic Surgery Additional Past Surgical History / Comment(s): R BKA, trach with chronic home vent Past Anesthesia/Blood Transfusion Reactions: No Reported Reaction Additional Past Anesthesia/Blood Transfusion Reaction / Comment(s): recalled from previous admission Smoking Status: Never smoker
[2024-09-04 06:28] LABS: ALT 45 U/L (4-49); AST 57 U/L (17-59); African American GFR (CKD) >90 (>60 ml/min/1.73 sqM); Albumin 2.2 g/dL (3.5-5.0); Alkaline Phosphatase 99 U/L (38-126); Anion Gap 8 mmol/L; Blood Urea Nitrogen 27 mg/dL (9-20); Calcium 7.9 mg/dL (8.4-10.2); Carbon Dioxide 24 mmol/L (22-30); Chloride 101 mmol/L (98-107); Glucose 199 mg/dL (74-99); Magnesium 1.9 mg/dL (1.6-2.3); Non-African American GFR(CKD) >90 (>60 ml/min/1.73 sqM); Potassium 3.5 mmol/L (3.5-5.1); Sodium 133 mmol/L (137-145); Total Protein 5.6 g/dL (6.3-8.2)
--- NOTE | 2024-09-04 07:29 | XR ---
EXAMINATION TYPE: XR chest 1V portable DATE OF EXAM: 09/04/2024 5:51 AM COMPARISON: Chest radiograph from one day prior. CLINICAL INDICATION: Male, 49 years old with history of trach to vent; [facility] TECHNIQUE: XR chest 1V portable Frontal view of the chest. FINDINGS: Lungs/Pleura: Bibasilar airspace opacities There is no evidence of pleural effusion, focal consolidat ion, or pneumothorax. Pulmonary vascularity: Mild pulmonary vascular congestion. Heart/mediastinum: Cardiomediastinal silhouette is unremarkable. Musculoskeletal: No acute osseous pathology. Other findings: None Lines/Tubes: Tracheostomy cannula tip projecting over the trachea. Left central venous catheter with distal tip at the cavoatrial junction. IMPRESSION: 1. Pulmonary edema correlate for volume overload. 2. Support tube and line in place. [facility], , 09/04/2024 7:26 AM
[2024-09-04] MEDS ORDERED: POTASSIUM CHLORIDE 10 MEQ in WATER FOR INJECTION 1 100ML.BAG IVPB SCH (08:00)
[2024-09-04] MEDS: MAGNESIUM SULFATE-D5W PMX 1 GM in DEXTROSE/WATER 1 100ML.BAG IVPB ONE (08:30)
[2024-09-04] MEDS: POTASSIUM CHLORIDE 20 MEQ in WATER FOR INJECTION 1 100ML.BAG IVPB STA (08:31)
--- NOTE | 2024-09-04 10:16 | P.PN ---
Subjective Progress Note Date: 09/04/24 History of present illness; This is a 49-year-old white male familiar to my service, history of paraplegia, home vent dependent, history of tracheostomy, patient had multiple admissions to the ICU for recurrent episodes of pneumonia and respiratory failure requiring ventilatory support. On his last admission patient was eventually discharged home on a home ventilator, and this was back on 08/04/2024. Patient was discharged home with a PICC line, patient was in the ER yesterday on 08/28 for abnormal labs mostly low potassium and low sodium discharged home however he came back today complaining of shortness of breath, has been ventilator dependent all along. Chest x-ray showed basically bibasilar o pacities/atelectasis, doubt pneumonia, the findings in the left lower lobe are chronic. Patient did have previous history of pneumonia involving the left lower lobe and he had multiple bronchoscopies in the past. Bronchial cultures and sputum cultures have been positive in the past for mostly Pseudomonas aeruginosa. Patient was seen in the ER today, and he is already on cefepime for empiric coverage for potential left lower lobe pneumonia, patient had abnormal electrolytes with relatively low sodium low potassium, no leukocytosis, normal renal profile, blood pressure was soft, and he was given fluid boluses. Lactic acid was 2.1, D-dimer is normal, patient was admitted, and this consult was initiated. 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 Patient was seen today on 08/30/2024, patient continues to have intermittent episodes of fever with Tmax of 102, patient required norepinephrine and he remains on norepinephrine at 0.04 mcg/kg/min remains on LR at 130 cc/h remains on his home ventilator at tidal volume of 450 rate of 20 FiO2 45% and PEEP of 5. Seems comfortable, not in distress, his WBC is 3.5 hemoglobin 10.0 electrolytes are normal renal profile is normal potassium is borderline low. Patient remains on cefepime, vancomycin was added because of his previous history of MRSA, and is on cefepime for previous history of pseudomonal infection and now that the patient may be septic it is more of a reason to broaden the spectrum of antibiotics coverage with cefepime and vancomycin. Sputum cultures and blood cultures are pending. Patient does have history of pseudomonal and history of MRSA infections, and I discontinued his Zithromax today replace Zithromax with vancomycin. Viral screen is negative Legionella antigen is negative. Chest x- ray is relatively unchanged continues to show bibasilar opacities atelectasis/pneumonia. Progress note dated August 31, 2024. The patient is seen today in room 252. The patient was admitted a couple days ago, to the intensive care unit. The patient is currently on mechanical ventilator, actually his home ventilator. He is on volume assist-control, rate 20, tidal volume 450, FiO2 45% PEEP of 5. The patient is getting lactated Ringer's at 130 cc an hour, TPN at 91 cc an hour, norepinephrine at 8 mcg/min. Doppler of the left upper extremity was negative. He continues on Zerbaxa, and vancomycin. We will check a procalcitonin level. Cultures thus far are negative. He does have a previous history of methicillin-resistant Staph aureus infection, and pseudomonal infections. White count was 2.21, hemoglobin 9.3, hematocrit 32, platelet count 1 61,000. D-dimer was 5.78. Sodium 132, potassium 4.3, chlorides 106, CO2 21, BUN 18, creatinine 0.28. Glucose was 141. Calcium 7.8. C. difficile study was negative. Urine Legionella antigen was negative. Microbiologic studies are currently negative. Chest x-ray shows bibasilar airspace opacities, possibly consistent with pneumonia. 09/01/24 - The patient is seen today in room 252. Admitted to the hospital and the intensive care unit on 08/29/2024. The patient is currently on mechanical ventilator, his one from home. He is on volume assist control, rate of 20, tidal volume of 450, FiO2 45% and PEEP of 5. He currently has LR running at 50 cc/h, TPN at 91 cc/h, Zerbaxa and tobramycin. Chest Xray done this morning showed stable airspace opacities. Cultures are positive for pseudomonas aeruginosa, awaiting sensitivities. WBCs 2.69, Hgb 8.9, Hct 31.5, PLT 153, Na 135, K 3.4, Cl 109, HCO3 19, BUN 22, Cr 0.34, Phos 2.4. 09/02/24 - He is seen today in room 252. Admitted to the hospital and ICU on 08/29/24. He continues on mechanical ventilator, his one from home. He remaines on volume assist control, rate of 20, tidal volume of 450, FiO2 45% and PEEP of 5. He continues to have LR running at 50 cc/h, TPN at 91 cc/h, norepinephrine at 0.13 mcg/kg/min, Zebraxa and Tobramycin. Chest XRay this morning showed stable airspace opacities. Continue to await sensitivity of pseudomonas sputum culture. Lab work shows WBCs 3.64, Hgb 9.7, Hct 33.5, PLT 130, Na 133, K 3.9, bicarb 21, BUN 23, Cr 0.36, Ca 7.8, Mg 2.4, Albumin 2.3. 09/03/24 - He is seen in room 252. Admitted to the hospital and ICU on 08/29/24. He continues on mechanical ventilator, his one from home. He remaines on volume assist control, rate of 20, tidal volume of 450, FiO2 45% and PEEP of 5. He continues to have LR running at 50 cc/h, TPN at 91 cc/h, norepinephrine at 0.24 mcg/kg/min, Avycaz and Tobramycin. Zebraxa was discontinued as there was no reported sensitivity to it. Lab work shows WBCs 9.40, Hgb 8.8, Hct 30.6, PLT 100, Na 130, K 3.6, bicarb 23, BUN 25, Cr 0.51, Ca 7.8, Ionized Ca 4.6, Phos 3.3, Mg 2.1, TSH 2.710 and random cortisol 13.1. 09/04/24 - He is seen in room 252. Admitted to the hospital and ICU on 08/29/24. He continues on mechanical ventilator, his one from home. He remaines on volume assist control, rate of 20, tidal volume of 450, FiO2 45% and PEEP of 5. He continues to have LR running at 50 cc/h, TPN at 91 cc/h, norepinephrine at 0.24 mcg/kg/min, Avycaz and Tobramycin. Lab work shows sodium 133, potassium 3.5, bicarb 24, BUN 27, creatinine 0.47, calcium 7.9, ionized calcium 4.6, magnesium 1.9, phosphorus 3.0, total bilirubin 1.7, AST 57, ALT 45, alkaline phosphatase 99. REVIEW OF SYSTEMS: Pertinent positives and negatives noted in HPI. Physical Exam: General: nontoxic, no distress, appears at stated age; currently on ventilator with tracheostomy tube in place, with trach collar. Derm: warm, dry, intact Head: atraumatic, normocephalic, symmetric Eyes: EOMI, anicteric sclera Mouth: no lip lesion, mucus membranes moist Cardiovascular: S1 S2 reg, no murmur, rubs, or gallops Lungs: CTA bilateral, no rales, no accessory muscle use Abdominal: soft, non-tender to palpataion, no appreciable organomegaly Extremities: Significant muscle atrophy; RBK amputation Neuro: Alert, Oriented, CNII-XII grossly intact, gait normal Psych: well appearing, appropriate affect Assessment and plan #Septic shock, source unclear, possibly related to pneumonia, or urinary tract infection. The patient continues on Zerbaxa, and vancomycin. #Chronic hypoxemic and hypercapnic respiratory failure, ventilator dependent, on a home ventilator, status post tracheostomy. #Left lower lobe atelectasis, possible pneumonia, with previous pseudomonal infection. 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 #History of recurrent pneumonia, involving the left lower lobe. #Tracheobronchomalacia. #History of DVT. #History of CVA. #History of right below-knee amputation. #Previous history of asystole/cardiac arrest, 2021. #History of Crohn's disease, status post enterocutaneous fistula, diverting ileostomy Plan dated September 04, 2024. The patient is seen today in room 252. Ventilator settings are noted above. No blood gases today. It was apparently refused by the patient. Sputum cultures positive for pseudomonas, awaiting susceptibilities, continues on Avycaz (day 2 today) and Tobramycin (dose 2 today) for a total of 7-10 days, pending clinical response - as per infectious disease. Norepinephrine is running at 0.13 mcg/kg/min, will continue to wean as possible. He is getting TPN at 65 cc an hour, was decreased as per dietitian due to the patient having noted weight gain. Will continue to monitor potassium, magnesium and calcium, replacement as needed. Ionized calcium of 4.6 - Discussed with pharmacy, supplementation will be added to TPN as necessary, will continue to monitor. We will continue to follow make recommendations along the way. Labs, x-rays, and all medications are reviewed. Prognosis is certainly guarded. Dictation was produced using [employer] dictation software. Please excuse any grammatical, word or spelling errors. GI prophylaxis: Protonix 40 mg daily DVT prophylaxis: Lovenox 90 mg subcu Q8H Dictation was produced using [employer] dictation software. please excuse any grammatical, word or spelling errors. Otoniel Christy MD PGY-1 IM Objective - Vital Signs Vital signs: Vital Signs Temp 98.8 F 09/04/24 00:00 Pulse 72 09/04/24 07:00 Resp 22 09/04/24 07:00 BP 100/51 09/04/24 07:00 Pulse Ox 96 09/04/24 07:00 FiO2 45 09/04/24 04:00 Intake & Output 09/03/24 09/04/24 09/04/24 18:59 06:59 18:59 Intake Total 2307.980 1252.713 60 Output Total 900 900 0 Balance 1407.980 352.713 60 Weight 104.1 kg 105.6 kg Intake: IV 820 670 60 0.9 120 70 10 Ceftolozane/Tazobactam 3 100 gm In Sodium Chloride 0.9 % 100 ml @ 100 mls/hr IV Q8HR ANNIE Rx#:[id number] Lactated Ringers 1,000 ml 600 600 50 @ 50 mls/hr IV .Q20H ANNIE Rx#:[id number] Intake, IV Titration 1487.980 582.713 Amount Ceftazidime/Avibactam 2.5 100 gm In Sodium Chloride 0. 9% 100 ml @ 50 mls/hr IVPB Q8HR ANNIE Rx#: [id number] Magnesium Sulfate gm 1 gm 598 Sodium Phosphate 30 mmol Potassium Chloride 40 meq Sodium Acetate 100 meq Calcium Gluconate 0.5 gm In Amino Acids 5 %/ Dextrose 20 % 1,000 ml @ 65 mls/hr IV .BY DURATION [facility] Rx#:[id number] Mvi, Adult No.4 with Vit 195 195 K 10 ml Trace (Conc-1Ml/ Dose) 1 ml Magnesium Sulfate gm 1 gm Sodium Phosphate 30 mmol Potassium Chloride 40 meq Sodium Acetate 100 meq Calcium Gluconate 0.5 gm In Amino Acids 5 %/ Dextrose 20 % 1,000 ml @ 65 mls/hr IV .BY DURATION [facility] Rx#:[id number] Norepinephrine 8 mg In 467.746 336.713 Sodium Chloride 0.9% 250 ml @ 0.03 MCG/KG/MIN 5. 003 mls/hr IV .Q24H [facility] Rx#:[id number] Potassium Chloride 10 meq 100 In Water For Injection 1 100ml.bag @ 100 mls/hr IVPB Q1H [facility] Rx#: [id number] Vasopressin 20 unit In 27.234 51 Sodium Chloride 0.9% 50 ml @ 0.03 UNITS/MIN 4.59 mls/hr IV .Q11H7M [facility] Rx# :[id number] Output: Urine 400 900 0 Stool 500 Other: Voiding Method External Catheter External Catheter # Voids 1 - Labs CBC & Chem 7: 09/03/24 03:48 09/04/24 05:54 Labs: Abnormal Lab Results - Last 24 Hours (Table) 09/04/24 Range/Units 05:54 Sodium 133 L (137-145) mmol/L BUN 27 H (9-20) mg/dL Creatinine 0.47 L (0.66-1.25) mg/dL Glucose 199 H (74-99) mg/dL Calcium 7.9 L (8.4-10.2) mg/dL Total Bilirubin 1.7 H (0.2-1.3) mg/dL Total Protein 5.6 L (6.3-8.2) g/dL Albumin 2.2 L (3.5-5.0) g/dL Microbiology - Last 24 Hours (Table) 08/29/24 07:00 Blood Culture - Final Blood
[2024-09-04] MEDS: ARTIFICIAL TEARS-HYPROMELLOSE DROPS 15 ML BTL BOTH EYES PRN (12:52)
--- NOTE | 2024-09-04 14:58 | P.PN ---
Subjective Progress Note Date: 09/03/24 Principal diagnosis: Reason for follow-up is sepsis and pneumonia Patient is a 49-year-old male with a past medical history significant for CVA TIA DVT pneumonia history of complicated Crohn's disease in this patient who did have multiple abdominal surgeries patient also have a tracheostomy has been brought to the hospital with Generalized weakness did have a fever c oncerning for pneumonia on today's evaluation that is 09/03/2024,the patient improvement in his fever pattern with a Tmax of 100.1 F, patient is intubated on the vent FiO2 current 45%, no significant purulent secretion through the ET or any other changes reported by nursing staff Patient white count is 9.40, creatinine 0.51 Objective - Vital Signs Vital signs: Vital Signs Temp 100.1 F H 09/03/24 12:00 Pulse 89 09/03/24 12:30 Resp 20 09/03/24 12:30 BP 99/54 09/03/24 12:30 Pulse Ox 96 09/03/24 12:30 FiO2 45 09/03/24 12:00 Intake & Output 09/02/24 09/03/24 09/03/24 18:59 06:59 18:59 Intake Total 2971.198 1058.422 742.684 Output Total 1400 350 225 Balance 1571.198 708.422 517.684 Weight 104.1 kg 104.1 kg Intake: IV 1200 670 370 0.9 120 120 70 Ceftolozane/Tazobactam 3 100 100 gm In Sodium Chloride 0.9 % 100 ml @ 100 mls/hr IV Q8HR [facility] Rx#:[id number] Fat Emulsion 20% 250 ml 180 In Empty Bag 1 bag @ 21 mls/hr IV Q72H [facility] Rx#: [id number] Lactated Ringers 1,000 ml 600 550 200 @ 50 mls/hr IV .Q20H [facility] Rx#:[id number] Potassium Chloride 10 meq 200 In Water For Injection 1 100ml.bag @ 100 mls/hr IVPB Q1HR [facility] Rx#: [id number] Intake, IV Titration 1291.198 388.422 372.684 Amount ACETAMINOPHEN IV (For NPO 100 ) 1,000 mg In Empty Bag 1 bag @ 400 mls/hr IVPB Q6HR PRN Rx#:[id number] Calcium Gluconate in NaCl 100 2 gm In Saline 1 100ml. bag @ 100 mls/hr IVPB ONCE ONE Rx#:[id number] Ceftazidime/Avibactam 2.5 100 gm In Sodium Chloride 0. 9% 100 ml @ 50 mls/hr IVPB Q8HR [facility] Rx#: [id number] Ceftolozane/Tazobactam 3 100 gm In Sodium Chloride 0.9 % 100 ml @ 100 mls/hr IV Q8HR [facility] Rx#:[id number] Magnesium Sulfate gm 1 gm 728 Sodium Phosphate 30 mmol Potassium Chloride 40 meq Sodium Acetate 92 meq In Amino Acids 5 %/ Dextrose 20 % 1,000 ml @ 91 mls/hr IV .BY DURATION [facility] Rx#:[id number] Norepinephrine 8 mg In 163.198 388.422 245.450 Sodium Chloride 0.9% 250 ml @ 0.03 MCG/KG/MIN 5. 003 mls/hr IV .Q24H [facility] Rx#:[id number] Potassium Chloride 10 meq 100 In Water For Injection 1 100ml.bag @ 100 mls/hr IVPB Q1H [facility] Rx#: [id number] Vasopressin 20 unit In 27.234 Sodium Chloride 0.9% 50 ml @ 0.03 UNITS/MIN 4.59 mls/hr IV .Q11H7M [facility] Rx# :[id number] Oral 480 Output: Urine 500 350 225 Stool 900 Other: Voiding Method External Catheter External Catheter External Catheter # Voids 1 1 - Exam GENERAL DESCRIPTION: Middle-age male intubated on the vent RESPIRATORY SYSTEM: Unlabored breathing , decreased breath sounds at bases HEART: S1 S2 regular rate and rhythm , ABDOMEN: Soft , no tenderness EXTREMITIES: Swelling to the leg - Labs CBC & Chem 7: 09/03/24 03:48 09/04/24 05:54 Labs: Abnormal Lab Results - Last 24 Hours (Table) 09/03/24 09/03/24 Range/Units 03:48 03:48 RBC 3.71 L (4.40-5.60) 10*6/uL Hgb 8.8 L (13.0-17.0) g/dL Hct 30.6 L (39.6-50.0) % MCH 23.7 L (27.0-32.0) pg MCHC 28.8 L (32.0-37.0) g/dL Plt Count 100 L (140-440) 10*3/uL Immature Gran # 0.05 H (0.00-0.04) 10*3/uL Neutrophils # (Manual) 8.93 H (1.3-7.7) k/uL Lymphocytes # (Manual) 0.09 L (1.0-4.8) k/uL Sodium 130 L (137-145) mmol/L BUN 25 H (9-20) mg/dL Creatinine 0.51 L (0.66-1.25) mg/dL Glucose 178 H (74-99) mg/dL Calcium 7.8 L (8.4-10.2) mg/dL Microbiology - Last 24 Hours (Table) 08/29/24 08:15 Gram Stain - Final Sputum Sputum Culture - Final Pseudomonas aeruginosa Assessment and Plan (1) Pneumonia Current Visit: Yes Status: Acute Code(s): J18.9 - PNEUMONIA, UNSPECIFIED ORGANISM SNOMED Code(s): 511273124 (2) Sepsis Current Visit: Yes Status: Acute Code(s): A41.9 - SEPSIS, UNSPECIFIED ORGANISM SNOMED Code(s): 36156469 Plan: 1patient is a hospital with sepsis in this patient who did have fever tachycardia elevated lactic acid upon meeting criteria for SIRS/sepsis source likely pneumonia in this patient who did have history of recurrent multidrug- resistant Pseudomonas pneumonia and will need to cover for that pathogen while waiting for the culture to be finalized 2-blood cultures has been negative and sputum culture growing Pseudomonas that is sensitive to Avycaz and tobramycin, Zerbaxa sensitivity not reported 3-patient improvement in fever pattern once switch to Avycaz and continue along with the tobramycin, watch his kidney function closely Dictation was produced using [employer] dictation software. please excuse any grammatical, word or spelling errors. Time with Patient: Less than 30
--- NOTE | 2024-09-04 14:59 | P.PN ---
Subjective Progress Note Date: 09/04/24 Principal diagnosis: Reason for follow-up is sepsis and pneumonia Patient is a 49-year-old male with a past medical history significant for CVA TIA DVT pneumonia history of complicated Crohn's disease in this patient who did have multiple abdominal surgeries patient also have a tracheostomy has been brought to the hospital with Generalized weakness did have a fever c oncerning for pneumonia on today's evaluation that is 09/04/2024, the patient did have resolution of his fever and is afebrile for more than 24 hours now patient remains to be intubated on the vent FiO2 is currently at 45% no significant purulent secretion through the ET or any other changes reported. Patient did have a creatinine 0.47 no CBC was done today Objective - Vital Signs Vital signs: Vital Signs Temp 98.1 F 09/04/24 08:00 Pulse 67 09/04/24 12:00 Resp 22 09/04/24 12:00 BP 99/55 09/04/24 12:00 Pulse Ox 98 09/04/24 12:00 FiO2 45 09/04/24 12:00 Intake & Output 09/03/24 09/04/24 09/04/24 18:59 06:59 18:59 Intake Total 2307.980 1252.713 956 Output Total 900 900 125 Balance 1407.980 352.713 831 Weight 104.1 kg 105.6 kg Intake: IV 820 670 280 0.9 120 70 30 Ceftolozane/Tazobactam 3 100 gm In Sodium Chloride 0.9 % 100 ml @ 100 mls/hr IV Q8HR [facility] Rx#:[id number] Lactated Ringers 1,000 ml 600 600 250 @ 50 mls/hr IV .Q20H [facility] Rx#:[id number] Intake, IV Titration 1487.980 582.713 676 Amount Ceftazidime/Avibactam 2.5 100 100 gm In Sodium Chloride 0. 9% 100 ml @ 50 mls/hr IVPB Q8HR [facility] Rx#: [id number] Magnesium Sulfate gm 1 gm 598 Sodium Phosphate 30 mmol Potassium Chloride 40 meq Sodium Acetate 100 meq Calcium Gluconate 0.5 gm In Amino Acids 5 %/ Dextrose 20 % 1,000 ml @ 65 mls/hr IV .BY DURATION [facility] Rx#:[id number] Magnesium Sulfate-D5w Pmx 100 1 gm In Dextrose/Water 1 100ml.bag @ 100 mls/hr IVPB ONCE ONE Rx#: [id number] Mvi, Adult No.4 with Vit 195 195 325 K 10 ml Trace (Conc-1Ml/ Dose) 1 ml Magnesium Sulfate gm 1 gm Sodium Phosphate 30 mmol Potassium Chloride 40 meq Sodium Acetate 100 meq Calcium Gluconate 0.5 gm In Amino Acids 5 %/ Dextrose 20 % 1,000 ml @ 65 mls/hr IV .BY DURATION [facility] Rx#:[id number] Norepinephrine 8 mg In 467.746 336.713 Sodium Chloride 0.9% 250 ml @ 0.03 MCG/KG/MIN 5. 003 mls/hr IV .Q24H [facility] Rx#:[id number] Potassium Chloride 10 meq 100 In Water For Injection 1 100ml.bag @ 100 mls/hr IVPB Q1H [facility] Rx#: [id number] Potassium Chloride 20 meq 100 In Water For Injection 1 100ml.bag @ 50 mls/hr IVPB ONCE [facility] Rx#: [id number] Vasopressin 20 unit In 27.234 51 51 Sodium Chloride 0.9% 50 ml @ 0.03 UNITS/MIN 4.59 mls/hr IV .Q11H7M [facility] Rx# :[id number] Output: Urine 400 900 125 Stool 500 Other: Voiding Method External Catheter External Catheter External Catheter # Voids 1 - Exam GENERAL DESCRIPTION: Middle-age male intubated on the vent RESPIRATORY SYSTEM: Unlabored breathing , decreased breath sounds at bases HEART: S1 S2 regular rate and rhythm , ABDOMEN: Soft , no tenderness EXTREMITIES: Swelling to the leg - Labs CBC & Chem 7: 09/03/24 03:48 09/04/24 05:54 Labs: Abnormal Lab Results - Last 24 Hours (Table) 09/04/24 Range/Units 05:54 Sodium 133 L (137-145) mmol/L BUN 27 H (9-20) mg/dL Creatinine 0.47 L (0.66-1.25) mg/dL Glucose 199 H (74-99) mg/dL Calcium 7.9 L (8.4-10.2) mg/dL Total Bilirubin 1.7 H (0.2-1.3) mg/dL Total Protein 5.6 L (6.3-8.2) g/dL Albumin 2.2 L (3.5-5.0) g/dL Microbiology - Last 24 Hours (Table) 08/29/24 07:00 Blood Culture - Final Blood Assessment and Plan (1) Pneumonia Current Visit: Yes Status: Acute Code(s): J18.9 - PNEUMONIA, UNSPECIFIED ORGANISM SNOMED Code(s): 820379607 (2) Sepsis Current Visit: Yes Status: Acute Code(s): A41.9 - SEPSIS, UNSPECIFIED ORGANISM SNOMED Code(s): 25163457 Plan: 1patient is a hospital with sepsis in this patient who did have fever tachycardia elevated lactic acid upon meeting criteria for SIRS/sepsis source likely pneumonia in this patient who did have history of recurrent multidrug- resistant Pseudomonas pneumonia and will need to cover for that pathogen while waiting for the culture to be finalized 2-blood cultures has been negative and sputum culture growing Pseudomonas that is sensitive to Avycaz and tobramycin, Zerbaxa sensitivity not reported 3-patient did have resolution of his fever plan is to treat the patient with Avycaz along with the tobramycin duration of antibiotic will be 7 to 10 days depending on his clinical response this has been discussed with the resident physician and also discussed with the mom at the bedside Dictation was produced using [employer] dictation software. please excuse any grammatical, word or spelling errors. Time with Patient: Less than 30
--- NOTE | 2024-09-04 17:21 | P.PN ---
Progress Note - Text Progress Note Date: 09/04/24 Chief Complaint: Short of breath 49-year-old patient, follows with Dr. Murcia History of paraplegia, home vent at night, tracheostomy multiple admissions to the ICU for recurrent pneumonia. Patient's previous bronchial cultures been positive for Pseudomonas. He was discharged recently on IV cefepime. Also has a history of Crohn's disease with previous colectomy diverting ileostomy. History of DVT for which patient is on subcu Lovenox. Also had drug-resistant MRSA Pseudomonas. Patient currently does not have areas significant trach secretions. He has continues TPN. Has a right BKA. He does have slight movement in the right hand. Able to follow commands by nodding his head. Answering questions. He is scared by his elder son open. I was also the DPOA. August 30: Overnight patient started having more secretions through the tracheostomy. Vancomycin was added. Also blood pressure running low patient was put on Levophed drip. Otherwise sinus rhythm. Patient remains on the ventilator. Will also send off stool for C. difficile. Also patient IV cefepime. Getting TPN. August 31: ICU. Patient had positive fluid balance. Was given IV Lasix earlier. Remains on Levophed. Spiking fevers. Getting TPN. Stool negative for C. difficile. Patient is growing MDRO Pseudomonas aeruginosa. ID is ordered IV Zerbaxa. Which is currently not available. Patient's friend is visiting him in the ICU. Light trach secretion September 01: ICU. On the ventilator. FiO2 45%. PEEP of 5. Continues to have light trach secretions. Sputum cultures again growing Pseudomonas. Zerbaxa was obtained and resumed. Blood pressure running low. On Levophed. Patient's younger son at the bedside. Colostomy working fine. Has been spiking fevers. Cooling blanket. Ice packs. September 02: ICU. Ventilator FiO2 45%. PEEP of 5. Continues to have some trach secretions. IV Zerbaxa IV tobramycin. TPN lipids to continue. Also Levophed. Patient started cooling blankets since yesterday for temperatures. Along with the nurse speech therapy records were reviewed from last few admissions. Patient with multiple MBS and bedside swallow eval. No trouble with swallowing. Patient put on a chopped diet. Thin liquids. Patient did spike a fever of 101.7 earlier today. Low ionized calcium. IV gluconate given. September 03: ICU. On ventilator FiO2 45%. PEEP of 5. Mild trach secretions. Getting IV TPN lipids. IV tobramycin. Zerbaxa was substituted to Avycaz. By ID. No fever per se since yesterday. For blood pressure patient is also on Levophed and vasopressin. September 04: ICU. On ventilator FiO2 45%. PEEP of 5. Clear trach secretions. Getting IV TPN lipids. IV tobramycin. And IV Avycaz. Remains afebrile.. On Levophed and vasopressin. Awake. Active Medications Albuterol/Ipratropium (Ipratropium-Albuterol 3 Ml Neb) 3 ml INHALATION RT-Q4H PRN PRN Reason: shortness of breath Last Admin: 08/30/24 20:26 Dose: 3 ml Artificial Tears (Artificial Tears-Hypromellose Drops 15 Ml Btl) 1 drops BOTH EYES QID PRN PRN Reason: Dry Eye(s) Last Admin: 09/04/24 12:52 Dose: 1 drops Enoxaparin Sodium (Enoxaparin 100 Mg/Ml Syringe) 90 mg SQ Q12HR [facility] Last Admin: 09/04/24 08:30 Dose: 90 mg Hydrocortisone Sodium Succinate (Hydrocortisone Succinate 100 Mg/2 Ml Vial) 100 mg IV Q8HR [facility] Last Admin: 09/04/24 15:22 Dose: 100 mg Hydromorphone HCl (Hydromorphone 1 Mg/Ml 1 Ml Syringe) 1 mg IVP Q4HR PRN PRN Reason: Pain Last Admin: 09/04/24 15:22 Dose: 1 mg Fat Emulsion Intravenous 250 (ml/ IV Solution) 250 mls @ 21 mls/hr IV Q72H [facility] Last Admin: 09/02/24 07:56 Dose: 21 mls/hr Lactated Ringer's (Lactated Ringers) 1,000 mls @ 50 mls/hr IV .Q20H [facility] Last Admin: 09/04/24 03:12 Dose: Not Given Norepinephrine Bitartrate 8 mg (/ Sodium Chloride) 258 mls @ 5.003 mls/hr IV .Q24H [facility]; Protocol Last Titration: 09/04/24 16:19 Dose: 0.11 mcg/kg/min, 18.344 mls/hr Ceftazidime/Avibactam 2.5 gm/ (Sodium Chloride) 100 mls @ 50 mls/hr IVPB Q8HR [facility]; Protocol Last Admin: 09/04/24 15:55 Dose: 50 mls/hr Vasopressin 20 unit/ Sodium (Chloride) 51 mls @ 4.59 mls/hr IV .Q11H7M [facility]; Protocol Last Admin: 09/04/24 12:53 Dose: 0.03 units/min, 4.59 mls/hr Tobramycin Sulfate 610 mg/ (Sodium Chloride) 115.25 mls @ 115.25 mls/hr IVPB Q48H [facility] Parenteral Vitamin Supplement 10 ml/ Zinc/Copper/Manganese/Selenium 1 ml/ Magnesium Sulfate 1 gm/ Sodium Phosphate 30 mmol/ Potassium Chloride 40 meq/ Sodium Acetate 100 meq / Calcium Gluconate 0.5 gm/Amino Acids/Dextrose 1,098 mls @ 65 mls/hr IV .BY DURATION [facility] Stop: 09/04/24 23:00 Last Admin: 09/03/24 15:55 Dose: 65 mls/hr Magnesium Sulfate 1 gm/ Sodium Phosphate 30 mmol/ Potassium Chloride 40 meq/ Sodium Acetate 100 meq/ Calcium Gluconate 0.5 gm/ Amino Acids/Dextrose 1,087 mls @ 65 mls/hr IV .BY DURATION [facility] Stop: 09/04/24 23:00 Last Admin: 09/04/24 08:31 Dose: 65 mls/hr Parenteral Vitamin Supplement 10 ml/ Zinc/Copper/Manganese/Selenium 1 ml/ Magnesium Sulfate 1 gm/ Sodium Phosphate 30 mmol/ Potassium Chloride 52 meq/ Sodium Acetate 110 meq / Calcium Gluconate 0.5 gm/Amino Acids/Dextrose 1,109 mls @ 65 mls/hr IV .BY DURATION [facility] Magnesium Sulfate 1 gm/ Sodium Phosphate 30 mmol/ Potassium Chloride 52 meq/ Sodium Acetate 110 meq/ Calcium Gluconate 0.5 gm/ Amino Acids/Dextrose 1,098 mls @ 65 mls/hr IV .BY DURATION [facility] Miscellaneous Information (Pneumonia Protocol Utilized 1 Each Misc) 1 each PO ONCE PRN PRN Reason: Per Protocol Miscellaneous Information (Potassium Replacement Protocol 1 Each Misc) 1 each MISCELLANE DAILY PRN; Protocol PRN Reason: Per Protocol Miscellaneous Information (Magnesium Replacement Protocol 1 Each Misc) 1 each MISCELLANE DAILY PRN; Protocol PRN Reason: Per Protocol Naloxone HCl (Naloxone 0.4 Mg/Ml 1 Ml Vial) 0.2 mg IV Q2M PRN PRN Reason: Opioid Reversal Ondansetron HCl (Ondansetron 4 Mg/2 Ml Vial) 4 mg IVP Q6HR PRN PRN Reason: Nausea And Vomiting Last Admin: 09/01/24 19:41 Dose: 4 mg Pantoprazole Sodium (Pantoprazole 40 Mg/10 Ml Vial) 40 mg IV DAILY [facility] Last Admin: 09/04/24 10:37 Dose: 40 mg Social history: ] Patient started smoking at the age of [age] 1 pack a day stopped in 2016. Nonambulatory. Is cared by his son over. Who is also the OA Physical examination: VITAL SIGNS: Afebrile, 67, 22, 99/55, 98% on the ventilator GENERAL: BMI 27.3, laying in bed, awake EYES: Pupils equal. Conjunctiva loan l. HEENT: External appearance of nose and ears normal, oral cavity grossly normal. NECK: JVD unable to assess; masses not palpable. Tracheostomy HEART: First and second heart sounds are normal; no edema. LUNGS: Respiratory rate increased, decreased breath sounds, some crackles ABDOMEN: Soft, nontender, liver spleen not palpable, no masses palpable. Double barrel ostomy. PSYCH: Able to answer questions by attempting to speak to normal. Not able phonate MUSCULOSKELETAL: Right BKA. Left foot drop. Left hand contracture. Right hand also with contracture but able to have some movements NEUROLOGICAL: Cranial nerves grossly intact; no facial asymmetry, slight movement in the right arm. Awake L INVESTIGATIONS, reviewed in the clinical context: September 04: Sodium 133 potassium 3.5 BUN 27 creatinine 0.47 September 03: White count 9.4 hemoglobin 8.8 platelet 100 potassium 3.6 BUN 25 creatinine 0.51 September 02: White count 3.6 hemoglobin 9.7 platelets 130 potassium 3.9 BUN 23 creatinine 0.36 ionized calcium 4.3 TSH 2.7 Sputum culture: Pseudomonas aeruginosa: Sensitive to Zosyn, tobramycin, ceftazidime September 01: White count 2.6 hemoglobin 8.9 platelets 153 potassium 3.4 BUN 22 creatinine 0.34 Sputum culture: Pseudomonas aeruginosa August 30: White count 3.5 hemoglobin 10.0 platelets 133 potassium 3.5 creatinine 0.36 August 29, 2024: White count 6.2 hemoglobin 12.3 platelets 216 sodium 128 potassium 3.1 BUN 50 creatinine 0.46 lactic acid 2.1 calcium 10.8 phosphorus 3.0 troponin I 0.016 UA: Negative for nitrite Influenza type A, type B, RSV, SARS-CoV-2: Not detected EKG tracing personally reviewed by me-normal sinus rhythm Chest x-ray film personally reviewed by me-right basilar infiltrate Previous labs: Sputum culture July 20, 2024: Pseudomonas aeruginosa Assessment plan: - basal pneumonia. Previous admission sputum was positive for Pseudomonas aeruginosa-: Clinically responding on IV Avycaz-.. IV tobramycin . No fever close to 48 hours Being followed by pulmonary, and ID -Loose stools negative for C. difficile Will add Metamucil to bulk up the stool - Septic shock: Slow to response Patient on Levophed. Vasopressin - Chronic hypoxic and hypercapnic respiratory failure, vent dependent at night at home - Tracheostomy with trach collar - Normocytic anemia of chronic disease and hospital-acquired anemia from blood draws Follow H&H - Thrombocytopenia likely from sepsis Follow - Right below-knee amputation - Chronic quadriparesis. Including left foot drop. Left arm contracture. Some right hand contracture. Some movement in the right arm - Crohn's disease with double barrel ostomy bag in place since 09/2021 - TPN - Full code - DPOA, son BECKY Continue IV antibiotics. Fluids. TPN lipids. Add Metamucil to bulk of the stool Past Medical History Past Medical History: CVA/TIA, Deep Vein Thrombosis (DVT), Pneumonia Additional Past Medical History / Comment(s): Hx CVA in 2012, DVT R arm, Crohns. colostomy Bag placed in 09/2021. History of Any Multi-Drug Resistant Organisms: MRSA, Other MDRO Date of last positivie culture/infection: 07/20/24-Other MDRO; 12/14/23-MRSA MDRO Source:: Other MDRO - sputum, BAL; MRSA- nasal Past Surgical History: Bowel Resection, Cholecystectomy, Orthopedic Surgery Additional Past Surgical History / Comment(s): R BKA, trach with chronic home vent Past Anesthesia/Blood Transfusion Reactions: No Reported Reaction Additional Past Anesthesia/Blood Transfusion Reaction / Comment(s): recalled from previous admission Smoking Status: Never smoker
[2024-09-04] MEDS: TOBRAMYCIN SULFATE IVPB SCH (18:21)
[2024-09-04] MEDS: SODIUM CHLORIDE 0.9% IVPB SCH (18:21)
[2024-09-04 21:28] LABS: African American GFR (CKD) >90 (>60 ml/min/1.73 sqM); Anion Gap 4 mmol/L; Blood Urea Nitrogen 29 mg/dL (9-20); Calcium 7.8 mg/dL (8.4-10.2); Carbon Dioxide 26 mmol/L (22-30); Chloride 104 mmol/L (98-107); Glucose 226 mg/dL (74-99); Non-African American GFR(CKD) >90 (>60 ml/min/1.73 sqM); Potassium 4.0 mmol/L (3.5-5.1); Sodium 134 mmol/L (137-145)
[2024-09-04] MEDS: PSYLLIUM HUSK 100% 6 GM PACKET PO SCH (21:34)
[2024-09-05 03:59] LABS: ALT 38 U/L (4-49); AST 41 U/L (17-59); African American GFR (CKD) >90 (>60 ml/min/1.73 sqM); Albumin 2.2 g/dL (3.5-5.0); Alkaline Phosphatase 102 U/L (38-126); Anion Gap 7 mmol/L; Blood Urea Nitrogen 30 mg/dL (9-20); Calcium 7.9 mg/dL (8.4-10.2); Carbon Dioxide 28 mmol/L (22-30); Chloride 101 mmol/L (98-107); Glucose 153 mg/dL (74-99); Magnesium 2.1 mg/dL (1.6-2.3); Non-African American GFR(CKD) >90 (>60 ml/min/1.73 sqM); Potassium 4.1 mmol/L (3.5-5.1); Sodium 136 mmol/L (137-145); Total Protein 5.7 g/dL (6.3-8.2)
--- NOTE | 2024-09-05 06:57 | XR ---
EXAMINATION TYPE: XR chest 1V portable DATE OF EXAM: 09/05/2024 COMPARISON: 09/04/2024 CLINICAL INDICATION: Male, 49 years old with history of vent; TECHNIQUE: Single frontal view of the chest is obtained. FINDINGS: No change in the position of ET tube or left central venous catheter. There is mild diffuse interstitial opacity and partially consolidative retrocardiac opacity. There is no pneumothorax. The heart size is normal for the technique. The osseous structures are grossly intact. IMPRESSION: 1. No change in the ET tube and left central venous catheter tip 2. No change in the bilateral acute cardiopulmonary process. [facility], , 09/05/2024 6:54 AM
--- NOTE | 2024-09-05 10:49 | P.PN ---
Subjective Progress Note Date: 09/05/24 Principal diagnosis: Pneumonia. This is a 49-year-old white male familiar to my service, history of paraplegia, home vent dependent, history of tracheostomy, patient had multiple admissions to the ICU for recurrent episodes of pneumonia and respiratory failure requiring ventilatory support. On his last admission patient was eventually discharged home on a home ventilator, and this was back on 08/04/2024. Patient was discharged home with a PICC line, patient was in the ER yesterday on 08/28 for abnormal labs mostly low potassium and low sodium discharged home however he cam e back today complaining of shortness of breath, has been ventilator dependent all along. Chest x-ray showed basically bibasilar opacities/atelectasis, doubt pneumonia, the findings in the left lower lobe are chronic. Patient did have previous history of pneumonia involving the left lower lobe and he had multiple bronchoscopies in the past. Bronchial cultures and sputum cultures have been positive in the past for mostly Pseudomonas aeruginosa. Patient was seen in the ER today, and he is already on cefepime for empiric coverage for potential left lower lobe pneumonia, patient had abnormal electrolytes with relatively low sodium low potassium, no leukocytosis, normal renal profile, blood pressure was soft, and he was given fluid boluses. Lactic acid was 2.1, D-dimer is normal, patient was admitted, and this consult was initiated. 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 Patient was seen today on 08/30/2024, patient continues to have intermittent episodes of fever with Tmax of 102, patient required norepinephrine and he remains on norepinephrine at 0.04 mcg/kg/min remains on LR at 130 cc/h remains on his home ventilator at tidal volume of 450 rate of 20 FiO2 45% and PEEP of 5. Seems comfortable, not in distress, his WBC is 3.5 hemoglobin 10.0 electrolytes are normal renal profile is normal potassium is borderline low. Patient remains on cefepime, vancomycin was added because of his previous history of MRSA, and is on cefepime for previous history of pseudomonal infection and now that the patient may be septic it is more of a reason to broaden the spectrum of antibiotics coverage with cefepime and vancomycin. Sputum cultures and blood cultures are pending. Patient does have history of pseudomonal and history of MRSA infections, and I discontinued his Zithromax today replace Zithromax with vancomycin. Viral screen is negative Legionella antigen is negative. Chest x- ray is relatively unchanged continues to show bibasilar opacities atelectasis/pneumonia. Progress note dated August 31, 2024. The patient is seen today in room 252. The patient was admitted a couple days ago, to the intensive care unit. The patient is currently on mechanical ventilator, actually his home ventilator. He is on volume assist-control, rate 20, tidal volume 450, FiO2 45% PEEP of 5. The patient is getting lactated Ringer's at 130 cc an hour, TPN at 91 cc an hour, norepinephrine at 8 mcg/min. Doppler of the left upper extremity was negative. He continues on Zerbaxa, and vancomycin. We will check a procalcitonin level. Cultures thus far are negative. He does have a previous history of methicillin-resistant Staph aureus infection, and pseudomonal infections. White count was 2.21, hemoglobin 9.3, hematocrit 32, platelet count 1 61,000. D-dimer was 5.78. Sodium 132, potassium 4.3, chlorides 106, CO2 21, BUN 18, creatinine 0.28. Glucose was 141. Calcium 7.8. C. difficile study was negative. Urine Legionella antigen was negative. Microbiologic studies are currently negative. Chest x-ray shows bibasilar airspace opacities, possibly consistent with pneumonia. 09/01/24 - The patient is seen today in room 252. Admitted to the hospital and the intensive care unit on 08/29/2024. The patient is currently on mechanical ventilator, his one from home. He is on volume assist control, rate of 20, tidal volume of 450, FiO2 45% and PEEP of 5. He currently has LR running at 50 cc/h, TPN at 91 cc/h, Zerbaxa and tobramycin. Chest Xray done this morning showed stable airspace opacities. Cultures are positive for pseudomonas aeruginosa, awaiting sensitivities. WBCs 2.69, Hgb 8.9, Hct 31.5, PLT 153, Na 135, K 3.4, Cl 109, HCO3 19, BUN 22, Cr 0.34, Phos 2.4. 09/02/24 - He is seen today in room 252. Admitted to the hospital and ICU on 08/29/24. He continues on mechanical ventilator, his one from home. He remaines on volume assist control, rate of 20, tidal volume of 450, FiO2 45% and PEEP of 5. He continues to have LR running at 50 cc/h, TPN at 91 cc/h, norepinephrine at 0.13 mcg/kg/min, Zebraxa and Tobramycin. Chest XRay this morning showed stable airspace opacities. Continue to await sensitivity of pseudomonas sputum culture. Lab work shows WBCs 3.64, Hgb 9.7, Hct 33.5, PLT 130, Na 133, K 3.9, bicarb 21, BUN 23, Cr 0.36, Ca 7.8, Mg 2.4, Albumin 2.3. 09/03/24 - He is seen in room 252. Admitted to the hospital and ICU on 08/29/24. He continues on mechanical ventilator, his one from home. He remaines on volume assist control, rate of 20, tidal volume of 450, FiO2 45% and PEEP of 5. He continues to have LR running at 50 cc/h, TPN at 91 cc/h, norepinephrine at 0.24 mcg/kg/min, Avycaz and Tobramycin. Zebraxa was discontinued as there was no reported sensitivity to it. Lab work shows WBCs 9.40, Hgb 8.8, Hct 30.6, PLT 100, Na 130, K 3.6, bicarb 23, BUN 25, Cr 0.51, Ca 7.8, Ionized Ca 4.6, Phos 3.3, Mg 2.1, TSH 2.710 and random cortisol 13.1. 09/04/24 - He is seen in room 252. Admitted to the hospital and ICU on 08/29/24. He continues on mechanical ventilator, his one from home. He remaines on volume assist control, rate of 20, tidal volume of 450, FiO2 45% and PEEP of 5. He continues to have LR running at 50 cc/h, TPN at 91 cc/h, norepinephrine at 0.24 mcg/kg/min, Avycaz and Tobramycin. Lab work shows sodium 133, potassium 3.5, bicarb 24, BUN 27, creatinine 0.47, calcium 7.9, ionized calcium 4.6, magnesium 1.9, phosphorus 3.0, total bilirubin 1.7, AST 57, ALT 45, alkaline phosphatase 99. Progress note dated September 05, 2024. 49-year-old male well-known to our service. He is seen today in room 252. He continues on volume assist-control, rate 20, tidal 450, FiO2 45%, PEEP of 5. The patient has refused blood gases. Currently, he is getting TPN at 65 cc an hour, norepinephrine at 1 mcg/min, LR at 50 cc/h. Clinically, the patient is doing well. His chest x-ray remains about the same. Yesterday he was on a higher dose of norepinephrine, and also was on vasopressin. Both have been weaned off. Current labs include a sodium 136, potassium 4.1, chlorides 101, CO2 28, BUN 30, creatinine 0.37. Glucose 153. Albumin is 2.2. Previous sputum, from August 29 with positive for Pseudomonas aeruginosa. Chest x-ray is largely unchanged. Objective - Vital Signs Vital signs: Vital Signs Temp 98.3 F 09/05/24 04:00 Pulse 90 09/05/24 10:00 Resp 21 09/05/24 10:00 BP 115/71 09/05/24 10:00 Pulse Ox 91 L 09/05/24 10:00 FiO2 45 09/05/24 08:00 Intake & Output 09/04/24 09/05/24 09/05/24 18:59 06:59 18:59 Intake Total 1618.344 5638.724 572.310 Output Total 125 1400 0 Balance 1814.629 14.724 572.310 Weight 105.9 kg Intake: IV 340 370 435 0.9 90 120 40 Lactated Ringers 1,000 ml 250 250 200 @ 50 mls/hr IV .Q20H [facility] Rx#:[id number] Mvi, Adult No.4 with Vit 195 K 10 ml Trace (Conc-1Ml/ Dose) 1 ml Magnesium Sulfate gm 1 gm Sodium Phosphate 30 mmol Potassium Chloride 52 meq Sodium Acetate 110 meq Calcium Gluconate 0.5 gm In Amino Acids 5 %/ Dextrose 20 % 1,000 ml @ 65 mls/hr IV .BY DURATION [facility] Rx#:[id number] Intake, IV Titration 6583.759 1116.724 137.310 Amount Ceftazidime/Avibactam 2.5 200 gm In Sodium Chloride 0. 9% 100 ml @ 50 mls/hr IVPB Q8HR [facility] Rx#: [id number] Magnesium Sulfate-D5w Pmx 100 1 gm In Dextrose/Water 1 100ml.bag @ 100 mls/hr IVPB ONCE ONE Rx#: [id number] Mvi, Adult No.4 with Vit 715 780 130 K 10 ml Trace (Conc-1Ml/ Dose) 1 ml Magnesium Sulfate gm 1 gm Sodium Phosphate 30 mmol Potassium Chloride 40 meq Sodium Acetate 100 meq Calcium Gluconate 0.5 gm In Amino Acids 5 %/ Dextrose 20 % 1,000 ml @ 65 mls/hr IV .BY DURATION [facility] Rx#:[id number] Norepinephrine 8 mg In 193.629 200.617 7.310 Sodium Chloride 0.9% 250 ml @ 0.03 MCG/KG/MIN 5. 003 mls/hr IV .Q24H [facility] Rx#:[id number] Potassium Chloride 20 meq 100 In Water For Injection 1 100ml.bag @ 50 mls/hr IVPB ONCE [facility] Rx#: [id number] Vasopressin 20 unit In 51 64.107 Sodium Chloride 0.9% 50 ml @ 0.03 UNITS/MIN 4.59 mls/hr IV .Q11H7M [facility] Rx# :[id number] Oral 240 Output: Urine 125 0 Stool 1400 Other: Voiding Method External Catheter External Catheter External Catheter # Voids 1 2 - Exam No acute distress, currently connected to the ventilator. He has a tracheostomy tube in place. HEENT examination is grossly unremarkable. Mucous membranes are moist. No oral lesions. Neck supple. Full range of motion. No adenopathy thyromegaly or neck vein distention. Cardiovascular examination reveals regular rhythm rate. S1-S2 normal. No S3 or S4. No discernible murmur noted. Lungs reveal clear breath sounds. Her sounds are equal bilaterally. No adventitious lung sounds including wheezes rhonchi or crackles. Abdomen reveals an enterocutaneous fistula, normal bowel sounds. No tenderness. No masses. Extremities are intact. No cyanosis clubbing or edema. Right below the knee amputation. Skin is without rash or lesion. Neurologic examination is brief but nonfocal. He does have significant muscle atrophy, and contractures. He has a right below the knee amputation. - Labs CBC & Chem 7: 09/03/24 03:48 09/05/24 02:50 Labs: Abnormal Lab Results - Last 24 Hours (Table) 09/04/24 09/05/24 Range/Units 21:05 02:50 Sodium 134 L 136 L (137-145) mmol/L BUN 29 H 30 H (9-20) mg/dL Creatinine 0.44 L 0.37 L (0.66-1.25) mg/dL Glucose 226 H 153 H (74-99) mg/dL Calcium 7.8 L 7.9 L (8.4-10.2) mg/dL Phosphorus 2.3 L (2.5-4.5) mg/dL Total Protein 5.7 L (6.3-8.2) g/dL Albumin 2.2 L (3.5-5.0) g/dL Assessment and Plan Assessment: Septic shock, source unclear. Could be related to pneumonia, or urinary tract infection. Chronic hypoxemic and hypercapnic respiratory failure, ventilator dependent, on a home ventilator, S/P tracheostomy. Left lower lobe atelectasis, possible pneumonia, with pseudomonal infection. History of severe tracheal stenosis, S/P tracheostomy. History of recurrent pneumonia, involving the left lower lobe. Tracheobronchomalacia. History of DVT. History of CVA. History of right below-knee amputation. Previous history of asystole/cardiac arrest, 2021. History of Crohn's disease, S/P enterocutaneous fistula, diverting ileostomy. Plan: Plan dated August 31, 2024. The patient is seen today in room 252. The patient's weight had on fluids, and the lactated Ringer's is cut back to 40 cc an hour. The patient will get 1 dose of Lasix IV push. Ventilator settings are noted. No blood gases today. It was apparently refused by the patient. Doppler of the left upper extremity was negative for DVT. Will check a procalcitonin level. The patient continues on norepinephrine at 8 mcg/min. He is getting TPN at 91 cc an hour. We will continue to follow make recommendations along the way. Labs, x-rays, and all medications are reviewed. Prognosis is certainly guarded. Dictation was produced using [employer] software. Please excuse any grammatical, word or spelling errors. Plan dated September 05, 2024. The patient is seen today in room 252. He is connected to his home mechanical ventilator. Settings of the same and include volume assist-control, rate 20, tidal volume 450, FiO2 45%, PEEP of 5. The patient is getting TPN at 65 cc an hour, norepinephrine has been weaned down to 1 mcg/min. He is getting lactated Ringer's at 50 cc an hour. He continues on Avycaz and tobramycin. We will cont inue to follow make recommendations. The patient also continues on hydrocortisone, for relative adrenal insufficiency. Prognosis is certainly guarded. We will continue to follow. Dictation was produced using [email or web address] software. Please excuse any grammatical, word or spelling errors. Time with Patient: Greater than 30
[2024-09-05 13:25] LABS: Triglycerides 269.00 mg/dL (0.00-149.00)
[2024-09-05] MEDS: SODIUM PHOSPHATE 15 MMOL in DEXTROSE 5% IN WATER 250 ML IVPB ONE (13:52)
--- NOTE | 2024-09-05 15:19 | P.PN ---
Subjective Progress Note Date: 09/05/24 Principal diagnosis: Reason for follow-up is sepsis and pneumonia Patient is a 49-year-old male with a past medical history significant for CVA TIA DVT pneumonia history of complicated Crohn's disease in this patient who did have multiple abdominal surgeries patient also have a tracheostomy has been brought to the hospital with Generalized weakness did have a fever c oncerning for pneumonia on today's evaluation that is 09/06/2023, patient did have a temperature of 97.9 F this afternoon and denies having any chills, patient is on ventilator FiO2 of 45% has been complaining of some shortness of breath no other changes reported by the nursing staff. Patient did have a creatinine 0.37 no CBC was done today Objective - Vital Signs Vital signs: Vital Signs Temp 97.9 F 09/05/24 12:00 Pulse 84 09/05/24 15:00 Resp 30 H 09/05/24 15:00 BP 105/67 09/05/24 15:00 Pulse Ox 94 L 09/05/24 15:00 FiO2 45 09/05/24 12:00 Intake & Output 09/04/24 09/05/24 09/05/24 18:59 06:59 18:59 Intake Total 7476.169 6651.724 1210.066 Output Total 125 1400 0 Balance 1814.629 14.724 1210.066 Weight 105.9 kg Intake: IV 266 563 4144 0.9 90 120 90 Lactated Ringers 1,000 ml 250 250 450 @ 50 mls/hr IV .Q20H [facility] Rx#:[id number] Mvi, Adult No.4 with Vit 520 K 10 ml Trace (Conc-1Ml/ Dose) 1 ml Magnesium Sulfate gm 1 gm Sodium Phosphate 30 mmol Potassium Chloride 52 meq Sodium Acetate 110 meq Calcium Gluconate 0.5 gm In Amino Acids 5 %/ Dextrose 20 % 1,000 ml @ 65 mls/hr IV .BY DURATION [facility] Rx#:[id number] Intake, IV Titration 3748.487 7939.724 150.066 Amount Ceftazidime/Avibactam 2.5 200 gm In Sodium Chloride 0. 9% 100 ml @ 50 mls/hr IVPB Q8HR [facility] Rx#: [id number] Magnesium Sulfate-D5w Pmx 100 1 gm In Dextrose/Water 1 100ml.bag @ 100 mls/hr IVPB ONCE [facility] Rx#: [id number] Mvi, Adult No.4 with Vit 715 780 130 K 10 ml Trace (Conc-1Ml/ Dose) 1 ml Magnesium Sulfate gm 1 gm Sodium Phosphate 30 mmol Potassium Chloride 40 meq Sodium Acetate 100 meq Calcium Gluconate 0.5 gm In Amino Acids 5 %/ Dextrose 20 % 1,000 ml @ 65 mls/hr IV .BY DURATION [facility] Rx#:[id number] Norepinephrine 8 mg In 193.629 200.617 20.066 Sodium Chloride 0.9% 250 ml @ 0.03 MCG/KG/MIN 5. 003 mls/hr IV .Q24H [facility] Rx#:[id number] Potassium Chloride 20 meq 100 In Water For Injection 1 100ml.bag @ 50 mls/hr IVPB ONCE [facility] Rx#: [id number] Vasopressin 20 unit In 51 64.107 Sodium Chloride 0.9% 50 ml @ 0.03 UNITS/MIN 4.59 mls/hr IV .Q11H7M [facility] Rx# :[id number] Oral 240 Output: Urine 125 0 Stool 1400 Other: Voiding Method External Catheter External Catheter External Catheter # Voids 1 2 1 - Exam GENERAL DESCRIPTION: Middle-age male intubated on the vent RESPIRATORY SYSTEM: Unlabored breathing , decreased breath sounds at bases HEART: S1 S2 regular rate and rhythm , ABDOMEN: Soft , no tenderness EXTREMITIES: Swelling to the leg - Labs CBC & Chem 7: 09/03/24 03:48 09/05/24 02:50 Labs: Abnormal Lab Results - Last 24 Hours (Table) 09/04/24 09/05/24 Range/Units 21:05 02:50 Sodium 134 L 136 L (137-145) mmol/L BUN 29 H 30 H (9-20) mg/dL Creatinine 0.44 L 0.37 L (0.66-1.25) mg/dL Glucose 226 H 153 H (74-99) mg/dL Calcium 7.8 L 7.9 L (8.4-10.2) mg/dL Phosphorus 2.3 L (2.5-4.5) mg/dL Total Protein 5.7 L (6.3-8.2) g/dL Albumin 2.2 L (3.5-5.0) g/dL Triglycerides 269.00 H (0.00-149.00) mg/dL Assessment and Plan (1) Pneumonia Current Visit: Yes Status: Acute Code(s): J18.9 - PNEUMONIA, UNSPECIFIED ORGANISM SNOMED Code(s): 589540050 (2) Sepsis Current Visit: Yes Status: Acute Code(s): A41.9 - SEPSIS, UNSPECIFIED ORGANISM SNOMED Code(s): 24676576 Plan: 1patient is a hospital with sepsis in this patient who did have fever tachycardia elevated lactic acid upon meeting criteria for SIRS/sepsis source likely pneumonia in this patient who did have history of recurrent multidrug-resistant Pseudomonas pneumonia and will need to cover for that pathogen while waiting for the culture to be finalized 2-blood cultures has been negative and sputum culture growing Pseudomonas that is sensitive to Avycaz and tobramycin, Zerbaxa sensitivity not reported 3-patient did have resolution of his fever and his white count was normal last checked 4patient currently being treated with Avycaz along with the tobramycin duration of antibiotic will be 7 to 10 days depending on his clinical response and monitor clinical course closely Dictation was produced using [employer] dictation software. please excuse any grammatical, word or spelling errors. Time with Patient: Less than 30
[2024-09-05] MEDS: HYDROCORTISONE SUCCINATE 100 MG/2 ML VIAL IV SCH (17:10)
[2024-09-06 03:39] LABS: Basophils # (A) 0.00 10*3/uL (0.00-0.10); Basophils % (A) 0.0 %; Eosinophils # (A) 0.00 10*3/uL (0.04-0.35); Eosinophils % (A) 0.0 %; HCT 27.5 % (39.6-50.0); HGB 7.9 g/dL (13.0-17.0); Immature Platelet Fraction 14.7 % (1.1-6.1); Lymphocytes # (A) 0.70 10*3/uL (0.90-5.00); Lymphocytes % (A) 13.4 %; MCH 23.5 pg (27.0-32.0); MCHC 28.7 g/dL (32.0-37.0); MCV 81.8 fL (80.0-97.0); Monocytes # (A) 0.34 10*3/uL (0.20-1.00); Monocytes % (A) 6.5 %; Neutrophils # (A) 4.15 10*3/uL (1.80-7.70); Neutrophils % (A) 79.7 %; RBC 3.36 10*6/uL (4.40-5.60); RDW 19.0 % (11.5-14.5); WBC 5.21 10*3/uL (4.50-10.00)
[2024-09-06 03:53] LABS: ALT 30 U/L (4-49); AST 22 U/L (17-59); African American GFR (CKD) >90 (>60 ml/min/1.73 sqM); Albumin 2.1 g/dL (3.5-5.0); Alkaline Phosphatase 98 U/L (38-126); Anion Gap 7 mmol/L; Blood Urea Nitrogen 25 mg/dL (9-20); Calcium 8.0 mg/dL (8.4-10.2); Carbon Dioxide 32 mmol/L (22-30); Chloride 102 mmol/L (98-107); Glucose 152 mg/dL (74-99); Magnesium 2.0 mg/dL (1.6-2.3); Non-African American GFR(CKD) >90 (>60 ml/min/1.73 sqM); Potassium 3.5 mmol/L (3.5-5.1); Sodium 141 mmol/L (137-145); Total Protein 5.3 g/dL (6.3-8.2)
[2024-09-06] MEDS: POTASSIUM CHLORIDE 20 MEQ in WATER FOR INJECTION 1 100ML.BAG IVPB SCH (05:18)
[2024-09-06 05:36] LABS: Platelet Count 64 10*3/uL (140-440)
--- NOTE | 2024-09-06 06:40 | XR ---
EXAMINATION TYPE: XR chest 1V portable DATE OF EXAM: 09/06/2024 COMPARISON: 09/05/2024 CLINICAL INDICATION: Male, 49 years old with history of vent; TECHNIQUE: Single frontal view of the chest is obtained. FINDINGS: No change in the ET tube and left-sided central venous catheter. No change in retrocardiac opacity or mild to moderate diffuse interstitial process in both lungs, rig ht greater than left. There is no pneumothorax. There is a probable small left effusion. IMPRESSION: No significant interval change in the bilateral cardiopulmonary process. [facility], , 09/06/2024 6:37 AM
--- NOTE | 2024-09-06 10:28 | P.PN ---
Subjective Progress Note Date: 09/06/24 Principal diagnosis: Pneumonia. This is a 49-year-old white male familiar to my service, history of paraplegia, home vent dependent, history of tracheostomy, patient had multiple admissions to the ICU for recurrent episodes of pneumonia and respiratory failure requiring ventilatory support. On his last admission patient was eventually discharged home on a home ventilator, and this was back on 08/04/2024. Patient was discharged home with a PICC line, patient was in the ER yesterday on 08/28 for abnormal labs mostly low potassium and low sodium discharged home however he cam e back today complaining of shortness of breath, has been ventilator dependent all along. Chest x-ray showed basically bibasilar opacities/atelectasis, doubt pneumonia, the findings in the left lower lobe are chronic. Patient did have previous history of pneumonia involving the left lower lobe and he had multiple bronchoscopies in the past. Bronchial cultures and sputum cultures have been positive in the past for mostly Pseudomonas aeruginosa. Patient was seen in the ER today, and he is already on cefepime for empiric coverage for potential left lower lobe pneumonia, patient had abnormal electrolytes with relatively low sodium low potassium, no leukocytosis, normal renal profile, blood pressure was soft, and he was given fluid boluses. Lactic acid was 2.1, D-dimer is normal, patient was admitted, and this consult was initiated. 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 Patient was seen today on 08/30/2024, patient continues to have intermittent episodes of fever with Tmax of 102, patient required norepinephrine and he remains on norepinephrine at 0.04 mcg/kg/min remains on LR at 130 cc/h remains on his home ventilator at tidal volume of 450 rate of 20 FiO2 45% and PEEP of 5. Seems comfortable, not in distress, his WBC is 3.5 hemoglobin 10.0 electrolytes are normal renal profile is normal potassium is borderline low. Patient remains on cefepime, vancomycin was added because of his previous history of MRSA, and is on cefepime for previous history of pseudomonal infection and now that the patient may be septic it is more of a reason to broaden the spectrum of antibiotics coverage with cefepime and vancomycin. Sputum cultures and blood cultures are pending. Patient does have history of pseudomonal and history of MRSA infections, and I discontinued his Zithromax today replace Zithromax with vancomycin. Viral screen is negative Legionella antigen is negative. Chest x- ray is relatively unchanged continues to show bibasilar opacities atelectasis/pneumonia. Progress note dated August 31, 2024. The patient is seen today in room 252. The patient was admitted a couple days ago, to the intensive care unit. The patient is currently on mechanical ventilator, actually his home ventilator. He is on volume assist-control, rate 20, tidal volume 450, FiO2 45% PEEP of 5. The patient is getting lactated Ringer's at 130 cc an hour, TPN at 91 cc an hour, norepinephrine at 8 mcg/min. Doppler of the left upper extremity was negative. He continues on Zerbaxa, and vancomycin. We will check a procalcitonin level. Cultures thus far are negative. He does have a previous history of methicillin-resistant Staph aureus infection, and pseudomonal infections. White count was 2.21, hemoglobin 9.3, hematocrit 32, platelet count 1 61,000. D-dimer was 5.78. Sodium 132, potassium 4.3, chlorides 106, CO2 21, BUN 18, creatinine 0.28. Glucose was 141. Calcium 7.8. C. difficile study was negative. Urine Legionella antigen was negative. Microbiologic studies are currently negative. Chest x-ray shows bibasilar airspace opacities, possibly consistent with pneumonia. 09/01/24 - The patient is seen today in room 252. Admitted to the hospital and the intensive care unit on 08/29/2024. The patient is currently on mechanical ventilator, his one from home. He is on volume assist control, rate of 20, tidal volume of 450, FiO2 45% and PEEP of 5. He currently has LR running at 50 cc/h, TPN at 91 cc/h, Zerbaxa and tobramycin. Chest Xray done this morning showed stable airspace opacities. Cultures are positive for pseudomonas aeruginosa, awaiting sensitivities. WBCs 2.69, Hgb 8.9, Hct 31.5, PLT 153, Na 135, K 3.4, Cl 109, HCO3 19, BUN 22, Cr 0.34, Phos 2.4. 09/02/24 - He is seen today in room 252. Admitted to the hospital and ICU on 08/29/24. He continues on mechanical ventilator, his one from home. He remaines on volume assist control, rate of 20, tidal volume of 450, FiO2 45% and PEEP of 5. He continues to have LR running at 50 cc/h, TPN at 91 cc/h, norepinephrine at 0.13 mcg/kg/min, Zebraxa and Tobramycin. Chest XRay this morning showed stable airspace opacities. Continue to await sensitivity of pseudomonas sputum culture. Lab work shows WBCs 3.64, Hgb 9.7, Hct 33.5, PLT 130, Na 133, K 3.9, bicarb 21, BUN 23, Cr 0.36, Ca 7.8, Mg 2.4, Albumin 2.3. 09/03/24 - He is seen in room 252. Admitted to the hospital and ICU on 08/29/24. He continues on mechanical ventilator, his one from home. He remaines on volume assist control, rate of 20, tidal volume of 450, FiO2 45% and PEEP of 5. He continues to have LR running at 50 cc/h, TPN at 91 cc/h, norepinephrine at 0.24 mcg/kg/min, Avycaz and Tobramycin. Zebraxa was discontinued as there was no reported sensitivity to it. Lab work shows WBCs 9.40, Hgb 8.8, Hct 30.6, PLT 100, Na 130, K 3.6, bicarb 23, BUN 25, Cr 0.51, Ca 7.8, Ionized Ca 4.6, Phos 3.3, Mg 2.1, TSH 2.710 and random cortisol 13.1. 09/04/24 - He is seen in room 252. Admitted to the hospital and ICU on 08/29/24. He continues on mechanical ventilator, his one from home. He remaines on volume assist control, rate of 20, tidal volume of 450, FiO2 45% and PEEP of 5. He continues to have LR running at 50 cc/h, TPN at 91 cc/h, norepinephrine at 0.24 mcg/kg/min, Avycaz and Tobramycin. Lab work shows sodium 133, potassium 3.5, bicarb 24, BUN 27, creatinine 0.47, calcium 7.9, ionized calcium 4.6, magnesium 1.9, phosphorus 3.0, total bilirubin 1.7, AST 57, ALT 45, alkaline phosphatase 99. Progress note dated September 05, 2024. 49-year-old male well-known to our service. He is seen today in room 252. He continues on volume assist-control, rate 20, tidal 450, FiO2 45%, PEEP of 5. The patient has refused blood gases. Currently, he is getting TPN at 65 cc an hour, norepinephrine at 1 mcg/min, LR at 50 cc/h. Clinically, the patient is doing well. His chest x-ray remains about the same. Yesterday he was on a higher dose of norepinephrine, and also was on vasopressin. Both have been weaned off. Current labs include a sodium 136, potassium 4.1, chlorides 101, CO2 28, BUN 30, creatinine 0.37. Glucose 153. Albumin is 2.2. Previous sputum, from August 29 with positive for Pseudomonas aeruginosa. Chest x-ray is largely unchanged. Progress note dated September 06, 2024. 49-year-old male again seen today in the intensive care unit, room 252. He remains on mechanical ventilator, actually his home ventilator, with settings of volume assist-control, rate 20, tidal volume 450, FiO2 45%, PEEP of 5. No blood gases today. The patient has been refusing. He is getting lactated Ringer's at 50 cc an hour, TPN at 65 cc an hour. He continues on the same antibiotics. White count 5.21, hemoglobin 7.9, hematocrit 27.5, and platelet count 64,000. Sodium 141, potassium 3.5, chlorides 102, CO2 32, BUN 25, and creatinine 0.35. Glucose is 152. Calcium is 8. Albumin is 2.1. Chest x-ray is largely unchanged. Objective - Vital Signs Vital signs: Vital Signs Temp 97.7 F 09/06/24 08:00 Pulse 80 09/06/24 10:00 Resp 22 09/06/24 10:00 BP 120/65 09/06/24 10:00 Pulse Ox 93 L 09/06/24 10:00 FiO2 45 09/06/24 08:00 Intake & Output 09/05/24 09/06/24 09/06/24 18:59 06:59 18:59 Intake Total 8413.113 1284 500 Output Total 500 300 0 Balance 0143.621 1545 500 Weight 107.3 kg Intake: IV 1560 1375 500 0.9 130 110 40 Lactated Ringers 1,000 ml 650 550 200 @ 50 mls/hr IV .Q20H [facility] Rx#:[id number] Mvi, Adult No.4 with Vit 780 715 260 K 10 ml Trace (Conc-1Ml/ Dose) 1 ml Magnesium Sulfate gm 1 gm Sodium Phosphate 30 mmol Potassium Chloride 52 meq Sodium Acetate 110 meq Calcium Gluconate 0.5 gm In Amino Acids 5 %/ Dextrose 20 % 1,000 ml @ 65 mls/hr IV .BY DURATION [facility] Rx#:[id number] Intake, IV Titration 150.066 Amount Mvi, Adult No.4 with Vit 130 K 10 ml Trace (Conc-1Ml/ Dose) 1 ml Magnesium Sulfate gm 1 gm Sodium Phosphate 30 mmol Potassium Chloride 40 meq Sodium Acetate 100 meq Calcium Gluconate 0.5 gm In Amino Acids 5 %/ Dextrose 20 % 1,000 ml @ 65 mls/hr IV .BY DURATION [facility] Rx#:[id number] Norepinephrine 8 mg In 20.066 Sodium Chloride 0.9% 250 ml @ 0.03 MCG/KG/MIN 5. 003 mls/hr IV .Q24H [facility] Rx#:[id number] Output: Urine 0 300 0 Stool 500 Other: Voiding Method External Catheter External Catheter External Catheter # Voids 1 - Exam No acute distress, currently connected to the ventilator. He has a tracheostomy tube in place. HEENT examination is grossly unremarkable. Mucous membranes are moist. No oral lesions. Neck supple. Full range of motion. No adenopathy thyromegaly or neck vein distention. Cardiovascular examination reveals regular rhythm rate. S1-S2 normal. No S3 or S4. No discernible murmur noted. Lungs reveal clear breath sounds. Her sounds are equal bilaterally. No adventitious lung sounds including wheezes rhonchi or crackles. Abdomen reveals an enterocutaneous fistula, normal bowel sounds. No tenderness. No masses. Extremities are intact. No cyanosis clubbing or edema. Right below the knee amputation. Skin is without rash or lesion. Neurologic examination is brief but nonfocal. He does have significant muscle atrophy, and contractures. He has a right below the knee amputation. - Labs CBC & Chem 7: 09/06/24 02:50 09/06/24 02:50 Labs: Abnormal Lab Results - Last 24 Hours (Table) 09/05/24 09/06/24 09/06/24 Range/Units 02:50 02:50 02:50 RBC 3.36 L (4.40-5.60) 10*6/uL Hgb 7.9 L (13.0-17.0) g/dL Hct 27.5 L (39.6-50.0) % MCH 23.5 L (27.0-32.0) pg MCHC 28.7 L (32.0-37.0) g/dL Plt Count 64 L (140-440) 10*3/uL Lymphocytes # 0.70 L (0.90-5.00) 10*3/uL Eosinophils # 0.00 L (0.04-0.35) 10*3/uL Immature Plt Fraction 14.7 H (1.1-6.1) % Carbon Dioxide 32 H (22-30) mmol/L BUN 25 H (9-20) mg/dL Creatinine 0.35 L (0.66-1.25) mg/dL Glucose 152 H (74-99) mg/dL Calcium 8.0 L (8.4-10.2) mg/dL Total Protein 5.3 L (6.3-8.2) g/dL Albumin 2.1 L (3.5-5.0) g/dL Triglycerides 269.00 H (0.00-149.00) mg/dL Assessment and Plan Assessment: Septic shock, likely secondary to Pseudomonas pneumonia, or urinary tract infection. Chronic hypoxemic and hypercapnic respiratory failure, ventilator dependent, on a home ventilator, S/P tracheostomy. Left lower lobe atelectasis, possible pneumonia, with pseudomonal infection. History of severe tracheal stenosis, S/P tracheostomy. History of recurrent pneumonia, involving the left lower lobe. Tracheobronchomalacia. History of DVT. History of CVA. History of right below-knee amputation. Previous history of asystole/cardiac arrest, 2021. History of Crohn's disease, S/P enterocutaneous fistula, diverting ileostomy. Plan: Plan dated August 31, 2024. The patient is seen today in room 252. The patient's weight had on fluids, and the lactated Ringer's is cut back to 40 cc an hour. The patient will get 1 dose of Lasix IV push. Ventilator settings are noted. No blood gases today. It was apparently refused by the patient. Doppler of the left upper extremity was negative for DVT. Will check a procalcitonin level. The patient continues on norepinephrine at 8 mcg/min. He is getting TPN at 91 cc an hour. We will continue to follow make recommendations along the way. Labs, x-rays, and all medications are reviewed. Prognosis is certainly guarded. Dictation was produced using [employer] software. Please excuse any grammatical, word or spelling errors. Plan dated September 05, 2024. The patient is seen today in room 252. He is connected to his home mechanical ventilator. Settings of the same and include volume assist-control, rate 20, tidal volume 450, FiO2 45%, PEEP of 5. The patient is getting TPN at 65 cc an hour, norepinephrine has been weaned down to 1 mcg/min. He is getting lactated Ringer's at 50 cc an hour. He continues on Avycaz and tobramycin. We will continue to follow make recommendations. The patient also continues on hydrocortisone, for relative adrenal insufficiency. Prognosis is certainly guarded. We will continue to follow. Dictation was produced using [employer] software. Please excuse any grammatical, word or spelling errors. Plan dated September 06, 2024. The patient is seen today in room 252. He continues on mechanical ventilation. The patient is having increased secretions. Will add a scopolamine patch. He continues on Avycaz, and tobramycin. In addition, he continues on TPN at 65 cc an hour, and lactated Ringer's at 50 cc an hour. All labs, x-rays, and medications are reviewed. Chest x-ray is unchanged. We will continue to follow make recommendations. Prognosis is guarded. Dictation was produced using [employer] software. Please excuse any grammatical, word or spelling errors. Time with Patient: Less than 30
[2024-09-06] MEDS: SCOPOLAMINE 1 MG/72 HR PATCH TRANSDERM SCH (11:06)
[2024-09-06] MEDS ORDERED: ACETYLCYSTEINE 800 MG/4 ML VIAL INHALATION SCH (12:00)
--- NOTE | 2024-09-06 15:26 | P.PN ---
Subjective Progress Note Date: 09/05/24 49-year-old patient, History of paraplegia, home vent at night, tracheostomy multiple admissions to the ICU for recurrent pneumonia. Patient's previous bronchial cultures been positive for Pseudomonas. He was discharged recently on IV cefepime. Also has a history of Crohn's disease with previous colectomy diverting ileostomy. History of DVT for which patient is on subcu Lovenox. Also had drug-resistant MRSA Pseudomonas. Patient currently does not have areas significant trach secretions. He has c ontinues TPN. Has a right BKA. He does have slight movement in the right hand. Able to follow commands by nodding his head. Objective - Vital Signs Vital signs: Vital Signs Temp 98.3 F 09/05/24 04:00 Pulse 53 L 09/05/24 09:00 Resp 20 09/05/24 09:00 BP 74/51 09/05/24 09:00 Pulse Ox 95 09/05/24 09:00 FiO2 45 09/05/24 08:00 Intake & Output 09/04/24 09/05/24 09/05/24 18:59 06:59 18:59 Intake Total 1919.701 3301.724 447.310 Output Total 125 1400 0 Balance 1814.629 14.724 447.310 Weight 105.9 kg Intake: IV 340 370 310 0.9 90 120 30 Lactated Ringers 1,000 ml 250 250 150 @ 50 mls/hr IV .Q20H [facility] Rx#:[id number] Mvi, Adult No.4 with Vit 130 K 10 ml Trace (Conc-1Ml/ Dose) 1 ml Magnesium Sulfate gm 1 gm Sodium Phosphate 30 mmol Potassium Chloride 52 meq Sodium Acetate 110 meq Calcium Gluconate 0.5 gm In Amino Acids 5 %/ Dextrose 20 % 1,000 ml @ 65 mls/hr IV .BY DURATION [facility] Rx#:[id number] Intake, IV Titration 8363.230 6145.724 137.310 Amount Ceftazidime/Avibactam 2.5 200 gm In Sodium Chloride 0. 9% 100 ml @ 50 mls/hr IVPB Q8HR [facility] Rx#: [id number] Magnesium Sulfate-D5w Pmx 100 1 gm In Dextrose/Water 1 100ml.bag @ 100 mls/hr IVPB ONCE ONE Rx#: [id number] Mvi, Adult No.4 with Vit 715 780 130 K 10 ml Trace (Conc-1Ml/ Dose) 1 ml Magnesium Sulfate gm 1 gm Sodium Phosphate 30 mmol Potassium Chloride 40 meq Sodium Acetate 100 meq Calcium Gluconate 0.5 gm In Amino Acids 5 %/ Dextrose 20 % 1,000 ml @ 65 mls/hr IV .BY DURATION [facility] Rx#:[id number] Norepinephrine 8 mg In 193.629 200.617 7.310 Sodium Chloride 0.9% 250 ml @ 0.03 MCG/KG/MIN 5. 003 mls/hr IV .Q24H [facility] Rx#:[id number] Potassium Chloride 20 meq 100 In Water For Injection 1 100ml.bag @ 50 mls/hr IVPB ONCE STA Rx#: [id number] Vasopressin 20 unit In 51 64.107 Sodium Chloride 0.9% 50 ml @ 0.03 UNITS/MIN 4.59 mls/hr IV .Q11H7M [facility] Rx# :[id number] Oral 240 Output: Urine 125 0 Stool 1400 Other: Voiding Method External Catheter External Catheter External Catheter # Voids 1 2 - Exam GENERAL: BMI 27.3, laying in bed, awake EYES: Pupils equal. Conjunctiva loan l. HEENT: External appearance of nose and ears normal, oral cavity grossly normal. NECK: JVD unable to assess; masses not palpable. Tracheostomy HEART: First and second heart sounds are normal; no edema. LUNGS: Respiratory rate increased, decreased breath sounds, some crackles ABDOMEN: Soft, nontender, liver spleen not palpable, no masses palpable. Double barrel ostomy. PSYCH: Able to answer questions by attempting to speak to normal. Not able phonate MUSCULOSKELETAL: Right BKA. Left foot drop. Left hand contracture. Right hand also with contracture but able to have some movements NEUROLOGICAL: Cranial nerves grossly intact; no facial asymmetry, slight movement in the right arm. Awake - Labs CBC & Chem 7: 09/06/24 02:50 09/06/24 12:15 Labs: Abnormal Lab Results - Last 24 Hours (Table) 09/04/24 09/05/24 Range/Units 21:05 02:50 Sodium 134 L 136 L (137-145) mmol/L BUN 29 H 30 H (9-20) mg/dL Creatinine 0.44 L 0.37 L (0.66-1.25) mg/dL Glucose 226 H 153 H (74-99) mg/dL Calcium 7.8 L 7.9 L (8.4-10.2) mg/dL Phosphorus 2.3 L (2.5-4.5) mg/dL Total Protein 5.7 L (6.3-8.2) g/dL Albumin 2.2 L (3.5-5.0) g/dL Assessment and Plan Assessment: - basal pneumonia. Previous admission sputum was positive for Pseudomonas aeruginosa-: Clinically responding on IV Avycaz-.. IV tobramycin . No fever close to 48 hours Being followed by pulmonary, and ID -Loose stools negative for C. difficile Will add Metamucil to bulk up the stool - Septic shock: Slow to response Patient on Levophed. Vasopressin - Chronic hypoxic and hypercapnic respiratory failure, vent dependent at night at home - Tracheostomy with trach collar - Normocytic anemia of chronic disease and hospital-acquired anemia from blood draws Follow H&H - Thrombocytopenia likely from sepsis Follow - Right below-knee amputation - Chronic quadriparesis. Including left foot drop. Left arm contracture. Some right hand contracture. Some movement in the right arm - Crohn's disease with double barrel ostomy bag in place since 09/2021 - TPN - Full code
--- NOTE | 2024-09-06 15:36 | P.PN ---
Subjective Progress Note Date: 09/06/24 49-year-old patient, History of paraplegia, home vent at night, tracheostomy multiple admissions to the ICU for recurrent pneumonia. Patient's previous bronchial cultures been positive for Pseudomonas. He was discharged recently on IV cefepime. Also has a history of Crohn's disease with previous colectomy diverting ileostomy. History of DVT for which patient is on subcu Lovenox. Also had drug-resistant MRSA Pseudomonas. Patient currently does not have areas significant trach secretions. He has c ontinues TPN. Has a right BKA. He does have slight movement in the right hand. Able to follow commands by nodding his head. 24-hour interval change 09/06/2024 Patient is seen and evaluated in ICU; remains on mechanical ventilator, actually his home ventilator, with settings of volume assist-control, rate 20, tidal volume 450, FiO2 45%, PEEP of 5. - patient has been refusing blood; no ABGs to. He is getting lactated Ringer's at 50 cc an hour, TPN at 65 cc an hour. - patient remains on the same antibiotics. - Labs reviewed which reveal white count 5.21, hemoglobin 7.9, hematocrit 27.5, and platelet count 64,000. Sodium 141, potassium 3.5, chlorides 102, CO2 32, BUN 25, and creatinine 0.35. Glucose is 152. Calcium is 8. Albumin is 2.1. -Chest x-ray is largely unchanged. Critical care managing mechanical ventilation; recommending to add scopolamine p atch for increased secretion -Patient remains on Avycaz and tobramycin - Continue with current TPN Objective - Vital Signs Vital signs: Vital Signs Temp 97.7 F 09/06/24 08:00 Pulse 76 09/06/24 08:30 Resp 23 09/06/24 08:30 BP 115/65 09/06/24 08:30 Pulse Ox 97 09/06/24 08:30 FiO2 45 09/06/24 08:00 Intake & Output 09/05/24 09/06/24 09/06/24 18:59 06:59 18:59 Intake Total 7671.754 5544 250 Output Total 500 300 0 Balance 6537.725 2634 250 Weight 107.3 kg Intake: IV 1560 1375 250 0.9 130 110 20 Lactated Ringers 1,000 ml 650 550 100 @ 50 mls/hr IV .Q20H [facility] Rx#:[id number] Mvi, Adult No.4 with Vit 780 715 130 K 10 ml Trace (Conc-1Ml/ Dose) 1 ml Magnesium Sulfate gm 1 gm Sodium Phosphate 30 mmol Potassium Chloride 52 meq Sodium Acetate 110 meq Calcium Gluconate 0.5 gm In Amino Acids 5 %/ Dextrose 20 % 1,000 ml @ 65 mls/hr IV .BY DURATION [facility] Rx#:[id number] Intake, IV Titration 150.066 Amount Mvi, Adult No.4 with Vit 130 K 10 ml Trace (Conc-1Ml/ Dose) 1 ml Magnesium Sulfate gm 1 gm Sodium Phosphate 30 mmol Potassium Chloride 40 meq Sodium Acetate 100 meq Calcium Gluconate 0.5 gm In Amino Acids 5 %/ Dextrose 20 % 1,000 ml @ 65 mls/hr IV .BY DURATION [facility] Rx#:[id number] Norepinephrine 8 mg In 20.066 Sodium Chloride 0.9% 250 ml @ 0.03 MCG/KG/MIN 5. 003 mls/hr IV .Q24H [facility] Rx#:[id number] Output: Urine 0 300 0 Stool 500 Other: Voiding Method External Catheter External Catheter External Catheter # Voids 1 - Exam GENERAL: BMI 27.3, laying in bed, awake EYES: Pupils equal. Conjunctiva loan l. HEENT: External appearance of nose and ears normal, oral cavity grossly normal. NECK: JVD unable to assess; masses not palpable. Tracheostomy HEART: First and second heart sounds are normal; no edema. LUNGS: Respiratory rate increased, decreased breath sounds, some crackles ABDOMEN: Soft, nontender, liver spleen not palpable, no masses palpable. Double barrel ostomy. PSYCH: Able to answer questions by attempting to speak to normal. Not able phonate MUSCULOSKELETAL: Right BKA. Left foot drop. Left hand contracture. Right hand also with contracture but able to have some movements NEUROLOGICAL: Cranial nerves grossly intact; no facial asymmetry, slight movement in the right arm. Awake - Labs CBC & Chem 7: 09/06/24 02:50 09/06/24 12:15 Labs: Abnormal Lab Results - Last 24 Hours (Table) 09/05/24 09/06/24 09/06/24 Range/Units 02:50 02:50 02:50 RBC 3.36 L (4.40-5.60) 10*6/uL Hgb 7.9 L (13.0-17.0) g/dL Hct 27.5 L (39.6-50.0) % MCH 23.5 L (27.0-32.0) pg MCHC 28.7 L (32.0-37.0) g/dL Plt Count 64 L (140-440) 10*3/uL Lymphocytes # 0.70 L (0.90-5.00) 10*3/uL Eosinophils # 0.00 L (0.04-0.35) 10*3/uL Immature Plt Fraction 14.7 H (1.1-6.1) % Carbon Dioxide 32 H (22-30) mmol/L BUN 25 H (9-20) mg/dL Creatinine 0.35 L (0.66-1.25) mg/dL Glucose 152 H (74-99) mg/dL Calcium 8.0 L (8.4-10.2) mg/dL Total Protein 5.3 L (6.3-8.2) g/dL Albumin 2.1 L (3.5-5.0) g/dL Triglycerides 269.00 H (0.00-149.00) mg/dL Assessment and Plan Assessment: - basal pneumonia. Previous admission sputum was positive for Pseudomonas aeruginosa-: Clinically responding on IV Avycaz-.. IV tobramycin . No fever close to 48 hours Being followed by pulmonary, and ID -Loose stools negative for C. difficile Will add Metamucil to bulk up the stool - Septic shock: Slow to response Patient on Levophed. Vasopressin - Chronic hypoxic and hypercapnic respiratory failure, vent dependent at night at home - Tracheostomy with trach collar - Normocytic anemia of chronic disease and hospital-acquired anemia from blood draws Follow H&H - Thrombocytopenia likely from sepsis Follow - Right below-knee amputation - Chronic quadriparesis. Including left foot drop. Left arm contracture. Some right hand contracture. Some movement in the right arm - Crohn's disease with double barrel ostomy bag in place since 09/2021 - TPN - Full code
--- NOTE | 2024-09-06 16:03 | P.PN ---
Subjective Progress Note Date: 09/06/24 Principal diagnosis: Reason for follow-up is sepsis and pneumonia Patient is a 49-year-old male with a past medical history significant for CVA TIA DVT pneumonia history of complicated Crohn's disease in this patient who did have multiple abdominal surgeries patient also have a tracheostomy has been brought to the hospital with Generalized weakness did have a fever c oncerning for pneumonia on today's evaluation that is 09/06/2024, Patient is afebrile patient is cur rently on ventilator FiO2 at 45% of any debris did have problem with low O2 sat last night and has to be suctioned and bagged as reported by the mother at the bedside patient is hemodynamically stable and not requiring any pressor support. The patient white count is 5.21, creatinine 0.35 blood culture has been negative Objective - Vital Signs Vital signs: Vital Signs Temp 97.8 F 09/06/24 12:00 Pulse 82 09/06/24 16:00 Resp 28 H 09/06/24 16:00 BP 152/85 09/06/24 16:00 Pulse Ox 95 09/06/24 16:00 FiO2 45 09/06/24 15:57 Intake & Output 09/05/24 09/06/24 09/06/24 18:59 06:59 18:59 Intake Total 2322.190 7937 1125 Output Total 500 300 750 Balance 9980.820 3421 375 Weight 107.3 kg Intake: IV 1560 1375 1125 0.9 130 110 90 Lactated Ringers 1,000 ml 650 550 450 @ 50 mls/hr IV .Q20H [facility] Rx#:[id number] Mvi, Adult No.4 with Vit 780 715 585 K 10 ml Trace (Conc-1Ml/ Dose) 1 ml Magnesium Sulfate gm 1 gm Sodium Phosphate 30 mmol Potassium Chloride 52 meq Sodium Acetate 110 meq Calcium Gluconate 0.5 gm In Amino Acids 5 %/ Dextrose 20 % 1,000 ml @ 65 mls/hr IV .BY DURATION [facility] Rx#:[id number] Intake, IV Titration 150.066 Amount Mvi, Adult No.4 with Vit 130 K 10 ml Trace (Conc-1Ml/ Dose) 1 ml Magnesium Sulfate gm 1 gm Sodium Phosphate 30 mmol Potassium Chloride 40 meq Sodium Acetate 100 meq Calcium Gluconate 0.5 gm In Amino Acids 5 %/ Dextrose 20 % 1,000 ml @ 65 mls/hr IV .BY DURATION [facility] Rx#:[id number] Norepinephrine 8 mg In 20.066 Sodium Chloride 0.9% 250 ml @ 0.03 MCG/KG/MIN 5. 003 mls/hr IV .Q24H [facility] Rx#:[id number] Output: Urine 0 300 50 Stool 500 700 Other: Voiding Method External Catheter External Catheter External Catheter # Voids 1 - Exam GENERAL DESCRIPTION: Middle-age male intubated on the vent RESPIRATORY SYSTEM: Unlabored breathing , decreased breath sounds at bases HEART: S1 S2 regular rate and rhythm , ABDOMEN: Soft , no tenderness EXTREMITIES: Swelling to the leg - Labs CBC & Chem 7: 09/06/24 02:50 09/06/24 12:15 Labs: Abnormal Lab Results - Last 24 Hours (Table) 09/06/24 09/06/24 Range/Units 02:50 02:50 RBC 3.36 L (4.40-5.60) 10*6/uL Hgb 7.9 L (13.0-17.0) g/dL Hct 27.5 L (39.6-50.0) % MCH 23.5 L (27.0-32.0) pg MCHC 28.7 L (32.0-37.0) g/dL Plt Count 64 L (140-440) 10*3/uL Lymphocytes # 0.70 L (0.90-5.00) 10*3/uL Eosinophils # 0.00 L (0.04-0.35) 10*3/uL Immature Plt Fraction 14.7 H (1.1-6.1) % Carbon Dioxide 32 H (22-30) mmol/L BUN 25 H (9-20) mg/dL Creatinine 0.35 L (0.66-1.25) mg/dL Glucose 152 H (74-99) mg/dL Calcium 8.0 L (8.4-10.2) mg/dL Total Protein 5.3 L (6.3-8.2) g/dL Albumin 2.1 L (3.5-5.0) g/dL Assessment and Plan (1) Pneumonia Current Visit: Yes Status: Acute Code(s): J18.9 - PNEUMONIA, UNSPECIFIED ORGANISM SNOMED Code(s): 447763124 (2) Sepsis Current Visit: Yes Status: Acute Code(s): A41.9 - SEPSIS, UNSPECIFIED ORGANISM SNOMED Code(s): 95703596 Plan: 1patient is a hospital with sepsis in this patient who did have fever ta chycardia elevated lactic acid upon meeting criteria for SIRS/sepsis source likely pneumonia in this patient who did have history of recurrent multidrug- resistant Pseudomonas pneumonia and will need to cover for that pathogen while waiting for the culture to be finalized 2-blood cultures has been negative and sputum culture growing Pseudomonas that is sensitive to Avycaz and tobramycin, Zerbaxa sensitivity not reported 3-patient did have resolution of his fever and his white count has normalized 4patient currently being treated with Avycaz day #5 along with the tobramycin and a plan on finish up 10-day course of therapy keeping in mind his multidrug- resistant Pseudomonas Dictation was produced using [employer] dictation software. please excuse any grammatical, word or spelling errors. Time with Patient: Less than 30
[2024-09-07 04:56] LABS: HCT 28.0 % (39.6-50.0); HGB 7.9 g/dL (13.0-17.0); MCH 23.2 pg (27.0-32.0); MCHC 28.2 g/dL (32.0-37.0); MCV 82.1 fL (80.0-97.0); RBC 3.41 10*6/uL (4.40-5.60); RDW 19.0 % (11.5-14.5); WBC 6.96 10*3/uL (4.50-10.00)
[2024-09-07 05:07] LABS: Platelet Count 90 10*3/uL (140-440)
[2024-09-07 05:34] LABS: African American GFR (CKD) >90 (>60 ml/min/1.73 sqM); Anion Gap 7 mmol/L; Blood Urea Nitrogen 24 mg/dL (9-20); Calcium 7.7 mg/dL (8.4-10.2); Carbon Dioxide 33 mmol/L (22-30); Chloride 103 mmol/L (98-107); Glucose 163 mg/dL (74-99); Magnesium 1.8 mg/dL (1.6-2.3); Non-African American GFR(CKD) >90 (>60 ml/min/1.73 sqM); Potassium 3.7 mmol/L (3.5-5.1); Sodium 143 mmol/L (137-145)
[2024-09-07] MEDS: MAGNESIUM SULFATE-D5W PMX 1 GM in DEXTROSE/WATER 1 100ML.BAG IVPB ONE (06:05)
[2024-09-07] MEDS: POTASSIUM CHLORIDE 10 MEQ in WATER FOR INJECTION 1 100ML.BAG IVPB SCH (06:06)
--- NOTE | 2024-09-07 08:41 | XR ---
EXAMINATION TYPE: XR chest 1V portable DATE OF EXAM: 09/07/2024 5:15 AM COMPARISON: None. CLINICAL INDICATION: Male, 49 years old with history of mechanical ventilation, TECHNIQUE: XR chest 1V portable view(s) obtained. FINDINGS: The heart size is normal. The pulmonary vasculature is prominent. Diffuse increased lung markings are present. Correlate for pulmonary edema. Tracheostomy tube is in the midline. Left central venous catheter tip is in the proximal right atrium . IMPRESSION: 1. Correlate for pulmonary edema. Findings are similar to comparison. [facility], , 09/07/2024 8:39 AM
--- NOTE | 2024-09-07 09:08 | P.PN ---
Subjective 49-year-old patient, History of paraplegia, home vent at night, tracheostomy multiple admissions to the ICU for recurrent pneumonia. Patient's previous bronchial cultures been positive for Pseudomonas. He was discharged recently on IV cefepime. Also has a history of Crohn's disease with previous colectomy diverting ileostomy. History of DVT for which patient is on subcu Lovenox. Also had drug-resistant MRSA Pseudomonas. Patient currently does not have areas significant trach secretions. He has continues TPN. Has a right BKA. He does have slight movement in the right hand. Able to follow commands by nodding his head. 09/06/2024 Patient is seen and evaluated in ICU; remains on mechanical ventilator, actually his home ventilator, with settings of volume assist-control, rate 20, tidal volume 450, FiO2 45%, PEEP of 5. - patient has been refusing blood; no ABGs to. He is getting lactated Ringer's at 50 cc an hour, TPN at 65 cc an hour. - patient remains on the same antibiotics. - Labs reviewed which reveal white count 5.21, hemoglobin 7.9, hematocrit 27.5, and platelet count 64,000. Sodium 141, potassium 3.5, chlorides 102, CO2 32, BUN 25, and creatinine 0.35. Glucose is 152. Calcium is 8. Albumin is 2.1. -Chest x-ray is largely unchanged. Critical care managing mechanical ventilation; recommending to add scopolamine patch for increased secretion -Patient remains on Avycaz and tobramycin - Continue with current TPN 09/07 Patient remains in the ICU lethargic. He is s/p tracheostomy Overnight he was more hypoxic they have to increase PEEP to 8. Also has a lot of secretions when needed for secretions suctioning to try to become apneic per Staff. Patient currently receiving Avycaz and tobramycin. on TPN also Objective - Vital Signs Vital signs: Vital Signs Temp 8.7 F L 09/07/24 08:00 Pulse 93 09/07/24 08:10 Resp 27 H 09/07/24 08:00 BP 130/65 09/07/24 08:00 Pulse Ox 98 09/07/24 08:00 FiO2 80 09/07/24 09:02 Intake & Output 09/06/24 09/07/24 09/07/24 18:59 06:59 18:59 Intake Total 1625 1595 380 Output Total 800 1150 Balance 825 445 380 Weight 107.1 kg Intake: IV 1625 880 265 0.9 130 80 Ceftazidime/Avibactam 2.5 100 gm In Sodium Chloride 0. 9% 100 ml @ 50 mls/hr IVPB Q8HR [facility] Rx#: [id number] Lactated Ringers 1,000 ml 650 500 100 @ 50 mls/hr IV .Q20H [facility] Rx#:[id number] Magnesium Sulfate gm 1 gm 65 Sodium Phosphate 30 mmol Potassium Chloride 58 meq Sodium Acetate 100 meq Calcium Gluconate 0.5 gm In Amino Acids 5 %/ Dextrose 20 % 1,000 ml @ 65 mls/hr IV .BY DURATION [facility] Rx#:[id number] Magnesium Sulfate-D5w Pmx 100 1 gm In Dextrose/Water 1 100ml.bag @ 100 mls/hr IVPB ONCE ONE Rx#: [id number] Mvi, Adult No.4 with Vit 845 K 10 ml Trace (Conc-1Ml/ Dose) 1 ml Magnesium Sulfate gm 1 gm Sodium Phosphate 30 mmol Potassium Chloride 52 meq Sodium Acetate 110 meq Calcium Gluconate 0.5 gm In Amino Acids 5 %/ Dextrose 20 % 1,000 ml @ 65 mls/hr IV .BY DURATION [facility] Rx#:[id number] Potassium Chloride 10 meq 100 100 In Water For Injection 1 100ml.bag @ 100 mls/hr IVPB Q1H [facility] Rx#: [id number] Intake, IV Titration 50 Amount Ceftazidime/Avibactam 2.5 50 gm In Sodium Chloride 0. 9% 100 ml @ 50 mls/hr IVPB Q8HR [facility] Rx#: [id number] TPN/PPN 715 65 Magnesium Sulfate gm 1 gm 195 65 Sodium Phosphate 30 mmol Potassium Chloride 58 meq Sodium Acetate 100 meq Calcium Gluconate 0.5 gm In Amino Acids 5 %/ Dextrose 20 % 1,000 ml @ 65 mls/hr IV .BY DURATION [facility] Rx#:[id number] Mvi, Adult No.4 with Vit 520 K 10 ml Trace (Conc-1Ml/ Dose) 1 ml Magnesium Sulfate gm 1 gm Sodium Phosphate 30 mmol Potassium Chloride 52 meq Sodium Acetate 110 meq Calcium Gluconate 0.5 gm In Amino Acids 5 %/ Dextrose 20 % 1,000 ml @ 65 mls/hr IV .BY DURATION [facility] Rx#:[id number] Output: Drainage 700 Medial Abdomen 700 Urine 100 450 Stool 700 Other: Voiding Method External Catheter External Catheter - Exam GENERAL: The patient is alert and oriented x3, not in any acute distress. Well developed, well nourished. HEENT: Pupils are round and equally reacting to light. EOMI. No scleral icterus. No conjunctival pallor. Normocephalic, atraumatic. No pharyngeal erythema. No thyromegaly. CARDIOVASCULAR: S1 and S2 present. No murmurs, rubs, or gallops. -PULMONARY: Chest is clear to auscultation, no wheezing , no crackles. S/p tracheostomy -ABDOMEN: Soft, nontender, nondistended, normoactive bowel sounds. No palpable organomegaly. S/p PEG tube MUSCULOSKELETAL: No joint swelling or deformity. EXTREMITIES: No cyanosis, clubbing, or pedal edema. NEUROLOGICAL: Gross neurological examination did not reveal any focal deficits. SKIN: No rashes. no petechiae. - Labs CBC & Chem 7: 09/07/24 04:36 09/07/24 04:36 Labs: Abnormal Lab Results - Last 24 Hours (Table) 09/07/24 09/07/24 Range/Units 04:36 04:36 RBC 3.41 L (4.40-5.60) 10*6/uL Hgb 7.9 L (13.0-17.0) g/dL Hct 28.0 L (39.6-50.0) % MCH 23.2 L (27.0-32.0) pg MCHC 28.2 L (32.0-37.0) g/dL Plt Count 90 L (140-440) 10*3/uL Carbon Dioxide 33 H (22-30) mmol/L BUN 24 H (9-20) mg/dL Creatinine 0.33 L (0.66-1.25) mg/dL Glucose 163 H (74-99) mg/dL Calcium 7.7 L (8.4-10.2) mg/dL Assessment and Plan Assessment: - basal pneumonia. Previous admission sputum was positive for Pseudomonas aeruginosa-: Clinically responding on IV Avycaz-.. IV tobramycin . No fever close to 48 hours Being followed by pulmonary, and ID -Loose stools negative for C. difficile Will add Metamucil to bulk up the stool - Septic shock: Slow to response Patient on Levophed. Vasopressin - Chronic hypoxic and hypercapnic respiratory failure, vent dependent at night at home - Tracheostomy with trach collar - Normocytic anemia of chronic disease and hospital-acquired anemia from blood draws Follow H&H - Thrombocytopenia likely from sepsis Follow - Right below-knee amputation - Chronic quadriparesis. Including left foot drop. Left arm contracture. Some right hand contracture. Some movement in the right arm - Crohn's disease with double barrel ostomy bag in place since 09/2021 - TPN - Full code Plan: Continue with antibiotics, currently on Avycaz and tobramycin Continue with TPN Continue with Ringer lactate Patient on therapeutic dose of Lovenox Several consultants on the case including pulmonary and infectious disease team Labs and medication were reviewed.. Continue same treatment. Continue with symptomatic treatment. Resume home medication. Monitor labs and vitals. DVT and GI prophylaxis. Further recommendations as per clinical course of the patient DVT prophylaxis: Subcutaneous Lovenox GI Prophylaxis: Protonix Prognosis is guarded
--- NOTE | 2024-09-07 11:07 | P.PN ---
Subjective Progress Note Date: 09/07/24 This is a 49-year-old white male familiar to my service, history of paraplegia, home vent dependent, history of tracheostomy, patient had multiple admissions to the ICU for recurrent episodes of pneumonia and respiratory failure requiring ventilatory support. On his last admission patient was eventually discharged home on a home ventilator, and this was back on 08/04/2024. Patient was discharged home with a PICC line, patient was in the ER yesterday on 08/28 for abnormal labs mostly low potassium and low sodium discharged home however he came back today complaining of shortness of breath, has been ventilator dependent all along. Chest x-ray showed basically bibasilar opacities/atelectasis, doubt pneumonia, the findings in the left lower lobe are chronic. Patient did have previous history of pneumonia involving the left lower lobe and he had multiple bronchoscopies in the past. Bronchial cultures and sputum cultures have been positive in the past for mostly Pseudomonas aeruginosa. Patient was seen in the ER today, and he is already on cefepime for empiric coverage for potential left lower lobe pneumonia, patient had abnormal electrolytes with relatively low sodium low potassium, no leukocytosis, normal renal profile, blood pressure was soft, and he was given fluid boluses. Lactic acid was 2.1, D-dimer is normal, patient was admitted, and this consult was initiated. 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 Patient was seen today on 08/30/2024, patient continues to have intermittent episodes of fever with Tmax of 102, patient required norepinephrine and he remains on norepinephrine at 0.04 mcg/kg/min remains on LR at 130 cc/h remains on his home ventilator at tidal volume of 450 rate of 20 FiO2 45% and PEEP of 5. Seems comfortable, not in distress, his WBC is 3.5 hemoglobin 10.0 electrolytes are normal renal profile is normal potassium is borderline low. Patient remains on cefepime, vancomycin was added because of his previous history of MRSA, and is on cefepime for previous history of pseudomonal infection and now that the patient may be septic it is more of a reason to broaden the spectrum of antibiotics coverage with cefepime and vancomycin. Sputum cultures and blood cultures are pending. Patient does have history of pseudomonal and history of MRSA infections, and I discontinued his Zithromax today replace Zithromax with vancomycin. Viral screen is negative Legionella antigen is negative. Chest x- ray is relatively unchanged continues to show bibasilar opacities atelectasi s/pneumonia. Progress note dated August 31, 2024. The patient is seen today in room 252. The patient was admitted a couple days ago, to the intensive care unit. The patient is currently on mechanical ventilator, actually his home ventilator. He is on volume assist-control, rate 20, tidal volume 450, FiO2 45% PEEP of 5. The patient is getting lactated Ringer's at 130 cc an hour, TPN at 91 cc an hour, norepinephrine at 8 mcg/min. Doppler of the left upper extremity was negative. He continues on Zerbaxa, and vancomycin. We will check a procalcitonin level. Cultures thus far are negative. He does have a previous history of methicillin-resistant Staph aureus infection, and pseudomonal infections. White count was 2.21, hemoglobin 9.3, hematocrit 32, platelet count 1 61,000. D-dimer was 5.78. Sodium 132, potassium 4.3, chlorides 106, CO2 21, BUN 18, creatinine 0.28. Glucose was 141. Calcium 7.8. C. difficile study was negative. Urine Legionella antigen was negative. Microbiologic studies are currently negative. Chest x-ray shows bibasilar airspace opacities, possibly consistent with pneumonia. 09/01/24 - The patient is seen today in room 252. Admitted to the hospital and the intensive care unit on 08/29/2024. The patient is currently on mechanical ventilator, his one from home. He is on volume assist control, rate of 20, tidal volume of 450, FiO2 45% and PEEP of 5. He currently has LR running at 50 cc/h, TPN at 91 cc/h, Zerbaxa and tobramycin. Chest Xray done this morning showed stable airspace opacities. Cultures are positive for pseudomonas aeruginosa, awaiting sensitivities. WBCs 2.69, Hgb 8.9, Hct 31.5, PLT 153, Na 135, K 3.4, Cl 109, HCO3 19, BUN 22, Cr 0.34, Phos 2.4. 09/02/24 - He is seen today in room 252. Admitted to the hospital and ICU on 08/29/24. He continues on mechanical ventilator, his one from home. He remaines on volume assist control, rate of 20, tidal volume of 450, FiO2 45% and PEEP of 5. He continues to have LR running at 50 cc/h, TPN at 91 cc/h, norepinephrine at 0.13 mcg/kg/min, Zebraxa and Tobramycin. Chest XRay this morning showed stable airspace opacities. Continue to await sensitivity of pseudomonas sputum culture. Lab work shows WBCs 3.64, Hgb 9.7, Hct 33.5, PLT 130, Na 133, K 3.9, bicarb 21, BUN 23, Cr 0.36, Ca 7.8, Mg 2.4, Albumin 2.3. 09/03/24 - He is seen in room 252. Admitted to the hospital and ICU on 08/29/24. He continues on mechanical ventilator, his one from home. He remaines on volume assist control, rate of 20, tidal volume of 450, FiO2 45% and PEEP of 5. He continues to have LR running at 50 cc/h, TPN at 91 cc/h, norepinephrine at 0.24 mcg/kg/min, Avycaz and Tobramycin. Zebraxa was discontinued as there was no reported sensitivity to it. Lab work shows WBCs 9.40, Hgb 8.8, Hct 30.6, PLT 100, Na 130, K 3.6, bicarb 23, BUN 25, Cr 0.51, Ca 7.8, Ionized Ca 4.6, Phos 3.3, Mg 2.1, TSH 2.710 and random cortisol 13.1. 09/04/24 - He is seen in room 252. Admitted to the hospital and ICU on 08/29/24. He continues on mechanical ventilator, his one from home. He remaines on volume assist control, rate of 20, tidal volume of 450, FiO2 45% and PEEP of 5. He continues to have LR running at 50 cc/h, TPN at 91 cc/h, norepinephrine at 0.24 mcg/kg/min, Avycaz and Tobramycin. Lab work shows sodium 133, potassium 3.5, bicarb 24, BUN 27, creatinine 0.47, calcium 7.9, ionized calcium 4.6, magnesium 1.9, phosphorus 3.0, total bilirubin 1.7, AST 57, ALT 45, alkaline phosphatase 99. Progress note dated September 05, 2024. 49-year-old male well-known to our service. He is seen today in room 252. He continues on volume assist-control, rate 20, tidal 450, FiO2 45%, PEEP of 5. The patient has refused blood gases. Currently, he is getting TPN at 65 cc an hour, norepinephrine at 1 mcg/min, LR at 50 cc/h. Clinically, the patient is doing well. His chest x-ray remains about the same. Yesterday he was on a hig her dose of norepinephrine, and also was on vasopressin. Both have been weaned off. Current labs include a sodium 136, potassium 4.1, chlorides 101, CO2 28, BUN 30, creatinine 0.37. Glucose 153. Albumin is 2.2. Previous sputum, from August 29 with positive for Pseudomonas aeruginosa. Chest x-ray is largely unchanged. Progress note dated September 06, 2024. 49-year-old male again seen today in the intensive care unit, room 252. He remains on mechanical ventilator, actually his home ventilator, with settings of volume assist-control, rate 20, tidal volume 450, FiO2 45%, PEEP of 5. No blood gases today. The patient has been refusing. He is getting lactated Ringer's at 50 cc an hour, TPN at 65 cc an hour. He continues on the same antibiotics. White count 5.21, hemoglobin 7.9, hematocrit 27.5, and platelet count 64,000. Sodium 141, potassium 3.5, chlorides 102, CO2 32, BUN 25, and creatinine 0.35. Glucose is 152. Calcium is 8. Albumin is 2.1. Chest x-ray is largely unchanged. 09/07/2024, the patient remains on a mechanical ventilator. The patient is having excessive respiratory secretions. Attempts to suction this patient has failed as the secretions are quite thick and the patient has had episodes of bradycardia while suctioning. Remains on TPN at 65 cc an hour and lactated Ringer at 50 cc an hour. Remains on assist-control mode mechanical ventilation at rate of 20, tidal volume of 450, FiO2 of 100% with a PEEP of 8. Patient has refused to have an arterial line. The patient has refused blood gases. Urine output is adequate. No hypotension. He has a double-lumen catheter in his left chest and the left forearm IV line.He is afebrile. He continues to have multidrug-resistant Pseudomonas in his sputum. The patient remains on ceftazidime/avibactam per IDs recommendations. He is also on IV tobramycin. Remains on stress dose hydrocortisone. Blood work shows a white cell count of 6.9, hemoglobin 7.9 and a platelet count of 90. BUN is 24 with a creatinine of 0.33. Sodium is 143 and a potassium level of 3.7. Bicarb level is at 33. Output from the ileostomy bag is high and the net fluid balance is +1.2 L over the past 24 hours. Airway pressures on the mechanical ventilator are elevated with an elevated peak airway pressure around 36 consistent with excessive respiratory secretions and mucous plugs. Chest x-ray shows atelectatic changes infiltrates in lung bases along with some scattered hazy bilateral pulmonary infiltrates. Objective - Vital Signs Vital signs: Vital Signs Temp 98.7 F 09/07/24 04:00 Pulse 89 09/07/24 07:49 Resp 20 09/07/24 07:00 BP 123/66 09/07/24 07:00 Pulse Ox 86 L 09/07/24 07:00 FiO2 100 09/07/24 07:50 Intake & Output 09/06/24 09/07/24 09/07/24 18:59 06:59 18:59 Intake Total 1625 1595 215 Output Total 800 1150 Balance 825 445 215 Weight 107.1 kg Intake: IV 1625 880 150 0.9 130 80 Ceftazidime/Avibactam 2.5 100 gm In Sodium Chloride 0. 9% 100 ml @ 50 mls/hr IVPB Q8HR [facility] Rx#: [id number] Lactated Ringers 1,000 ml 650 500 50 @ 50 mls/hr IV .Q20H [facility] Rx#:[id number] Magnesium Sulfate-D5w Pmx 100 1 gm In Dextrose/Water 1 100ml.bag @ 100 mls/hr IVPB ONCE ONE Rx#: [id number] Mvi, Adult No.4 with Vit 845 K 10 ml Trace (Conc-1Ml/ Dose) 1 ml Magnesium Sulfate gm 1 gm Sodium Phosphate 30 mmol Potassium Chloride 52 meq Sodium Acetate 110 meq Calcium Gluconate 0.5 gm In Amino Acids 5 %/ Dextrose 20 % 1,000 ml @ 65 mls/hr IV .BY DURATION [facility] Rx#:[id number] Potassium Chloride 10 meq 100 100 In Water For Injection 1 100ml.bag @ 100 mls/hr IVPB Q1H [facility] Rx#: [id number] TPN/PPN 715 65 Magnesium Sulfate gm 1 gm 195 65 Sodium Phosphate 30 mmol Potassium Chloride 58 meq Sodium Acetate 100 meq Calcium Gluconate 0.5 gm In Amino Acids 5 %/ Dextrose 20 % 1,000 ml @ 65 mls/hr IV .BY D[facility]ATION [facility] Rx#:[id number] Mvi, Adult No.4 with Vit 520 K 10 ml Trace (Conc-1Ml/ Dose) 1 ml Magnesium Sulfate gm 1 gm Sodium Phosphate 30 mmol Potassium Chloride 52 meq Sodium Acetate 110 meq Calcium Gluconate 0.5 gm In Amino Acids 5 %/ Dextrose 20 % 1,000 ml @ 65 mls/hr IV .BY DURATION [facility] Rx#:[id number] Output: Drainage 700 Medial Abdomen 700 Urine 100 450 Stool 700 Other: Voiding Method External Catheter External Catheter - Exam No acute distress, currently connected to the ventilator. He has a tracheostomy tube in place. The patient has a #6 [address] tracheostomy tube in place. Lethargic, follows simple commands. Profoundly weak in all 4 extremities. HEENT examination is grossly unremarkable. Mucous membranes are moist. No oral lesions. Neck supple. Full range of motion. No adenopathy thyromegaly or neck vein distention. Cardiovascular examination reveals regular rhythm rate. S1-S2 normal. No S3 or S4. No discernible murmur noted. Lungs reveal clear breath sounds. Breath sounds are diminished bilaterally and scattered rhonchi heard throughout the lung craft bilaterally. Tracheostomy tube in place. Abdomen reveals an enterocutaneous fistula, normal bowel sounds. No tenderness. No masses. Extremities are intact. No cyanosis clubbing and there is edema in his left lower extremity and upper extremities bilaterally. The patient has a below-knee amputation his right lower extremity. Skin is without rash or lesion. Neurologic examination is brief but nonfocal. He does have significant muscle atrophy, and contractures. He has a right below the knee amputation. Generalized profound weakness. Weak cough. Weak motor functions. - Labs CBC & Chem 7: 09/07/24 04:36 09/07/24 04:36 Labs: Abnormal Lab Results - Last 24 Hours (Table) 09/07/24 09/07/24 Range/Units 04:36 04:36 RBC 3.41 L (4.40-5.60) 10*6/uL Hgb 7.9 L (13.0-17.0) g/dL Hct 28.0 L (39.6-50.0) % MCH 23.2 L (27.0-32.0) pg MCHC 28.2 L (32.0-37.0) g/dL Plt Count 90 L (140-440) 10*3/uL Carbon Dioxide 33 H (22-30) mmol/L BUN 24 H (9-20) mg/dL Creatinine 0.33 L (0.66-1.25) mg/dL Glucose 163 H (74-99) mg/dL Calcium 7.7 L (8.4-10.2) mg/dL Assessment and Plan Plan: Septic shock, likely secondary to Pseudomonas pneumonia, hemodynamically stable and the patient is currently on no pressors Bilateral pneumonia with multidrug-resistant Pseudomonas aeruginosa. The patient is currently on ceftazidime/tazobactam and tobramycin combination. Continues to have excessive respiratory secretions and mucous plugs. Chronic hypoxemic and hypercapnic respiratory failure, ventilator dependent, on a home ventilator, S/P tracheostomy. The patient failed his home ventilator and the patient is currently on a mechanical ventilator assist-control mode. Chest x-ray was noted. No blood Available. History of severe tracheal stenosis, S/P tracheostomy. 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 History of DVT. History of CVA. History of right below-knee amputation. Previous history of asystole/cardiac arrest, 2021. History of Crohn's disease, S/P enterocutaneous fistula, diverting ileostomy. The patient remains on TPN for nutritional support. Plan: Continue ventilator support dropped FiO2 to 80% Bronchoscopy today Unable to obtain blood gases Will monitor the pulse ox through the oxygen saturation and wean down FiO2 as tolerated to maintain saturation above 90% He continues on Avycaz, and tobramycin. Continues on TPN at 65 cc an hour, Lactated Ringer's at 50 cc an hour. Lovenox 90 mg SQ every 12 hours Stress dose hydrocortisone IV Protonix Scopolamine patch Prognosis remains extremely poor due to above-mentioned comorbidities. Will continue to follow and make further recommendation based on his progress. This evaluation was done at 35 minutes. Time with Patient: Greater than 30
--- NOTE | 2024-09-07 11:12 | P.PCN ---
Date of Procedure: 09/07/24 Operative Findings: Preoperative Diagnosis: Respiratory failure, Postoperative Diagnosis: Copious mucus plugs Procedure(s) Performed: Flexible bronchoscopy, therapeutic airway suctioning, BAL of the RLL Anesthesia: MAC Surgeon: Estela Holt Estimated Blood Loss (ml): 0 Pathology: other Condition: critical Disposition: ICU Operative Findings: This procedure was done in the intensive care unit. The patient was given a total of 100 mg of IV propofol an additional 50 mg was given during the procedure. A flexible disposable bronchoscope was inserted through the tracheostomy tube and it was advanced into the lower trachea. Noted the tip of the tracheostomy tube was in the mid trachea. There was no evidence of any tracheal stenosis. A full airway inspection was done. There was copious amount of respiratory secretions and mucous plugs obstructing the distal trachea and bilateral mainstem bronchi. Therapeutic airway suctioning was done. Approximately 30 to 40 cc of secretions were suctioned out and those were thick and purulent. 20 cc of saline was irrigated in the right lower lobe and a therapeutic airway suctioning was done in the bronchial lavage of the right lower lobe was done. Following that, the left lower lobe was also irrigated with saline and the residual respiratory secretions were all suctioned out. He completed the procedure, the majority of the secretions were suctioned out without any major difficulties. The bronchoscope was removed. The plan will be kept on a mechanical ventilator. Will gradually wean down the FiO2. The bronchoalveolar lavage will be sent again for cultures.
[2024-09-07] MEDS: HYDROmorphone 1 MG/ML 1 ML SYRINGE IVP PRN (16:45)
[2024-09-08 06:20] LABS: HCT 27.2 % (39.6-50.0); HGB 7.7 g/dL (13.0-17.0); Immature Platelet Fraction 16.2 % (1.1-6.1); MCH 23.3 pg (27.0-32.0); MCHC 28.3 g/dL (32.0-37.0); MCV 82.4 fL (80.0-97.0); RBC 3.30 10*6/uL (4.40-5.60); RDW 19.2 % (11.5-14.5); WBC 6.04 10*3/uL (4.50-10.00)
[2024-09-08 06:36] LABS: ALT 28 U/L (4-49); AST 36 U/L (17-59); African American GFR (CKD) >90 (>60 ml/min/1.73 sqM); Albumin 2.1 g/dL (3.5-5.0); Alkaline Phosphatase 92 U/L (38-126); Anion Gap 2 mmol/L; Blood Urea Nitrogen 24 mg/dL (9-20); Calcium 7.5 mg/dL (8.4-10.2); Carbon Dioxide 34 mmol/L (22-30); Chloride 107 mmol/L (98-107); Glucose 163 mg/dL (74-99); Magnesium 1.8 mg/dL (1.6-2.3); Non-African American GFR(CKD) >90 (>60 ml/min/1.73 sqM); Sodium 143 mmol/L (137-145); Total Protein 5.7 g/dL (6.3-8.2)
[2024-09-08 06:37] LABS: Potassium 4.1 mmol/L (3.5-5.1)
[2024-09-08 07:07] LABS: Platelet Count 77 10*3/uL (140-440)
--- NOTE | 2024-09-08 07:09 | XR ---
EXAMINATION TYPE: XR chest 1V portable DATE OF EXAM: 09/08/2024 4:57 AM COMPARISON: 09/07/2024 CLINICAL INDICATION: Male, 49 years old with history of mechanical ventilation, difficulty breathing TECHNIQUE: XR chest 1V portable view(s) obtained. FINDINGS: The heart size is normal. The pulmonary vasculature is normal. There is worsening patchy infiltrate. Correlate for pneumonia and atypical pneumonia. Pulmonary Edema could be considered. There is silhouetting of the right diaphragm. Tracheostomy tube is in the midline. Left central venous catheter tip is in the distal superior vena cava region. IMPRESSION: 1. Worsening bilateral lung infiltrates. Correlate for atypical pneumonia. [facility], , 09/08/2024 7:07 AM
[2024-09-08] MEDS: MAGNESIUM SULFATE-D5W PMX 1 GM in DEXTROSE/WATER 1 100ML.BAG IVPB ONE (08:07)
--- NOTE | 2024-09-08 08:14 | P.PN ---
Subjective 49-year-old patient, History of paraplegia, home vent at night, tracheostomy multiple admissions to the ICU for recurrent pneumonia. Patient's previous bronchial cultures been positive for Pseudomonas. He was discharged recently on IV cefepime. Also has a history of Crohn's disease with previous colectomy diverting ileostomy. History of DVT for which patient is on subcu Lovenox. Also had drug-resistant MRSA Pseudomonas. Patient currently does not have areas significant trach secretions. He has continues TPN. Has a right BKA. He does have slight movement in the right hand. Able to follow commands by nodding his head. 09/06/2024 Patient is seen and evaluated in ICU; remains on mechanical ventilator, actually his home ventilator, with settings of volume assist-control, rate 20, tidal volume 450, FiO2 45%, PEEP of 5. - patient has been refusing blood; no ABGs to. He is getting lactated Ringer's at 50 cc an hour, TPN at 65 cc an hour. - patient remains on the same antibiotics. - Labs reviewed which reveal white count 5.21, hemoglobin 7.9, hematocrit 27.5, and platelet count 64,000. Sodium 141, potassium 3.5, chlorides 102, CO2 32, BUN 25, and creatinine 0.35. Glucose is 152. Calcium is 8. Albumin is 2.1. -Chest x-ray is largely unchanged. Critical care managing mechanical ventilation; recommending to add scopolamine patch for increased secretion -Patient remains on Avycaz and tobramycin - Continue with current TPN 09/07 Patient remains in the ICU lethargic. He is s/p tracheostomy Overnight he was more hypoxic they have to increase PEEP to 8. Also has a lot of secretions when needed for secretions suctioning to try to become apneic per Staff. Patient currently receiving Avycaz and tobramycin. on TPN also 09/08 Patient remains in the ICU awake and alert status post tracheostomy. He has contractures of both upper and lower extremities He is complaining from pain in his lungs. He is status post flexible bronchoscopy and bronchoalveolar lavage yesterday. He has previous sputum culture positive for Pseudomonas currently covered with ceftazidime and tobramycin. He is also on Lovenox 90 mg Objective - Vital Signs Vital signs: Vital Signs Temp 98.5 F 09/08/24 04:00 Pulse 82 09/08/24 07:00 Resp 21 09/08/24 07:00 BP 126/61 09/08/24 07:00 Pulse Ox 98 09/08/24 07:00 FiO2 60 09/08/24 08:04 Intake & Output 09/07/24 09/08/24 09/08/24 18:59 06:59 18:59 Intake Total 3966.964 9358 125 Output Total 1000 1500 50 Balance 495.239 80 75 Weight 107.2 kg Intake: IV 1255 865 60 0.9 90 100 10 Ceftazidime/Avibactam 2.5 100 gm In Sodium Chloride 0. 9% 100 ml @ 50 mls/hr IVPB Q8HR [facility] Rx#: [id number] Lactated Ringers 1,000 ml 350 600 50 @ 50 mls/hr IV .Q20H [facility] Rx#:[id number] Magnesium Sulfate gm 1 gm 715 65 Sodium Phosphate 30 mmol Potassium Chloride 58 meq Sodium Acetate 100 meq Calcium Gluconate 0.5 gm In Amino Acids 5 %/ Dextrose 20 % 1,000 ml @ 65 mls/hr IV .BY DURATION [facility] Rx#:[id number] Potassium Chloride 10 meq 100 In Water For Injection 1 100ml.bag @ 100 mls/hr IVPB Q1H [facility] Rx#: [id number] Intake, IV Titration 175.239 Amount Ceftazidime/Avibactam 2.5 100 gm In Sodium Chloride 0. 9% 100 ml @ 50 mls/hr IVPB Q8HR [facility] Rx#: [id number] propofoL 1,000 mg In 75.239 Empty Bag 1 bag @ 50 MCG/ KG/MIN 32.13 mls/hr IV . Q3H7M [facility] Rx#:[id number] TPN/PPN 65 715 65 Magnesium Sulfate gm 1 gm 65 65 Sodium Phosphate 30 mmol Potassium Chloride 58 meq Sodium Acetate 100 meq Calcium Gluconate 0.5 gm In Amino Acids 5 %/ Dextrose 20 % 1,000 ml @ 65 mls/hr IV .BY DURATION [facility] Rx#:[id number] Mvi, Adult No.4 with Vit 650 65 K 10 ml Trace (Conc-1Ml/ Dose) 1 ml Magnesium Sulfate gm 1 gm Sodium Phosphate 30 mmol Potassium Chloride 58 meq Sodium Acetate 90 meq Calcium Gluconate 0.5 gm In Amino Acids 5 %/ Dextrose 20 % 1,000 ml @ 65 mls/hr IV .BY DURATION [facility] Rx#:[id number] Output: Drainage 750 Medial Abdomen 750 Urine 300 750 50 Stool 700 Other: Voiding Method External Catheter External Catheter - Exam GENERAL: The patient is alert and oriented x3, not in any acute distress. Well developed, well nourished. HEENT: Pupils are round and equally reacting to light. EOMI. No scleral icterus. No conjunctival pallor. Normocephalic, atraumatic. No pharyngeal erythema. No thyromegaly. CARDIOVASCULAR: S1 and S2 present. No murmurs, rubs, or gallops. -PULMONARY: Chest is clear to auscultation, no wheezing , no crackles. S/p tracheostomy -ABDOMEN: Soft, nontender, nondistended, normoactive bowel sounds. No palpable organomegaly. S/p PEG tube MUSCULOSKELETAL: No joint swelling or deformity. EXTREMITIES: No cyanosis, clubbing, or pedal edema. NEUROLOGICAL: Gross neurological examination did not reveal any focal deficits. SKIN: No rashes. no petechiae. - Labs CBC & Chem 7: 09/08/24 05:30 09/08/24 05:30 Labs: Abnormal Lab Results - Last 24 Hours (Table) 09/08/24 09/08/24 Range/Units 05:30 05:30 RBC 3.30 L (4.40-5.60) 10*6/uL Hgb 7.7 L (13.0-17.0) g/dL Hct 27.2 L (39.6-50.0) % MCH 23.3 L (27.0-32.0) pg MCHC 28.3 L (32.0-37.0) g/dL Plt Count 77 L (140-440) 10*3/uL Immature Plt Fraction 16.2 H (1.1-6.1) % Carbon Dioxide 34 H (22-30) mmol/L BUN 24 H (9-20) mg/dL Creatinine 0.29 L (0.66-1.25) mg/dL Glucose 163 H (74-99) mg/dL Calcium 7.5 L (8.4-10.2) mg/dL Total Bilirubin 1.4 H (0.2-1.3) mg/dL Total Protein 5.7 L (6.3-8.2) g/dL Albumin 2.1 L (3.5-5.0) g/dL Microbiology - Last 24 Hours (Table) 09/07/24 10:40 Gram Stain - Preliminary Bronchial Washings - Random Assessment and Plan Assessment: - basal pneumonia. Previous admission sputum was positive for Pseudomonas aeruginosa-: Clinically responding on IV Avycaz-.. IV tobramycin . No fever close to 48 hours Being followed by pulmonary, and ID -Loose stools negative for C. difficile Will add Metamucil to bulk up the stool - Septic shock: Slow to response Patient on Levophed. Vasopressin - Chronic hypoxic and hypercapnic respiratory failure, vent dependent at night at home - Tracheostomy with trach collar - Normocytic anemia of chronic disease and hospital-acquired anemia from blood draws Follow H&H - Thrombocytopenia likely from sepsis Follow - Right below-knee amputation - Chronic quadriparesis. Including left foot drop. Left arm contracture. Some right hand contracture. Some movement in the right arm - Crohn's disease with double barrel ostomy bag in place since 09/2021 - TPN - Full code Plan: Continue with antibiotics, currently on Avycaz and tobramycin Continue with TPN Continue with Ringer lactate Patient on therapeutic dose of Lovenox Several consultants on the case including pulmonary and infectious disease team Labs and medication were reviewed.. Continue same treatment. Continue with symptomatic treatment. Resume home medication. Monitor labs and vitals. DVT and GI prophylaxis. Further recommendations as per clinical course of the patient DVT prophylaxis: Subcutaneous Lovenox GI Prophylaxis: Protonix Prognosis is guarded
--- NOTE | 2024-09-08 09:26 | P.CRDCN ---
History of Present Illness Consult date: 09/08/24 Chief complaint: bradycardia History of present illness: The patient is a 49-year-old male who is currently admitted to the hospital with sepsis secondary to Pseudomonas pneumonia. Patient has a history of chronic hypoxemic and hypercapnic respiratory failure, where he is vent dependent. Cardiology has been consulted for bradycardia. When patient becomes hypoxic, patient becomes bradycardic in the 30s to 40s. Yesterday the patient had sev eral episodes of third-degree heart block, lasting greater than 6 seconds. Patient also underwent bronchoscopy yesterday. DIAGNOSTICS: EKG shows sinus mechanism Heart rate currently in the 70s on telemetry, without ectopy Chest x-ray shows worsening bilateral lung infiltrates, consistent with atypical pneumonia Lab data: WBC 6.04, hemoglobin 7.7, hematocrit 27.2, platelet 77, sodium 143, potassium 4.1, BUN 24, creatinine 0.29, magnesium 1.8, AST 36, ALT 28 REVIEW OF SYSTEMS: Currently resting on ventilator. PHYSICAL EXAMINATION: This is a 49-year-old male in mild respiratory distress at the time of my examination. HEENT: Head is atraumatic, normocephalic. Pupils are equal, round. There is no jugular venous distention. No carotid bruit is heard. CHEST EXAMINATION: Lungs are coarse to auscultation. No chest wall tenderness is noted on palpation or with deep breathing. HEART EXAMINATION: Heart regular rate and rhythm. S1, S2 heard. No murmurs, gallops or rub. ABDOMEN: Soft, nontender. Bowel sounds are heard. No organomegaly noted. EXTREMITIES: +2 left lower extremity pitting edema. Right AKA. FINAL ASSESSMENT AND PLAN: Third-degree heart block, in the setting of hypoxia Septic shock, secondary to Pseudomonas pneumonia Chronic hypoxemic and hypercapnic respiratory failure, vent dependent Previous history of asystole/cardiac arrest in 2021 PLAN: Continue supportive treatment Avoid AV paulina blocking agents Continue to monitor via telemetry Further recommendations to be based on clinical course I am dictating on behalf of Dr Lawson Resendez's history/physical and assess ment/plan. Past Medical History Past Medical History: CVA/TIA, Deep Vein Thrombosis (DVT), Pneumonia Additional Past Medical History / Comment(s): Hx CVA in 2012, DVT R arm, Crohns. colostomy Bag placed in 09/2021. History of Any Multi-Drug Resistant Organisms: MRSA, Other MDRO Date of last positivie culture/infection: 08/29/24-Other MDRO; 12/14/23-MRSA MDRO Source:: Other MDRO - sputum, BAL; MRSA- nasal Past Surgical History: Bowel Resection, Cholecystectomy, Orthopedic Surgery Additional Past Surgical History / Comment(s): R BKA, trach with chronic home vent Past Anesthesia/Blood Transfusion Reactions: No Reported Reaction Additional Past Anesthesia/Blood Transfusion Reaction / Comment(s): recalled from previous admission Smoking Status: Never smoker - Past Family History Father Additional Family Medical History / Comment(s): DAD IN HIS TWENTIES - CAUSE UNKNOWN. Mother Family Medical History: Diabetes Mellitus Brother(s) Family Medical History: Cancer Additional Family Medical History / Comment(s): Kidney cancer as a baby. Medications and Allergies Home Medications Medication Instructions Recorded Confirmed Type Pantoprazole [Protonix] 40 mg PO BID 07/07/22 08/29/24 History Enoxaparin [Lovenox] 100 mg SQ Q12H 06/19/24 08/29/24 History Folic Acid 1 mg PO DAILY 06/19/24 08/29/24 History Loperamide HCl [Imodium A-D] 4 mg PO Q6H 06/19/24 08/29/24 History Thiamine [Vitamin B-1] 100 mg PO DAILY 06/19/24 08/29/24 History busPIRone HCl [Buspar] 15 mg PO BID 30 Days #60 tab 07/14/24 08/29/24 Rx HYDROcodone/APAP 5-325MG [[place] 1 tab PO Q6H PRN 07/17/24 08/29/24 History 5-325] Ipratropium-Albuterol Nebulize 3 ml INHALATION RT-QID #100 each 08/04/24 08/29/24 Rx [Duoneb 0.5 mg-3 mg/3 ml Soln] Ipratropium-Albuterol Nebulize 3 ml INHALATION RT-QID PRN each 08/04/24 08/29/24 Rx [Duoneb 0.5 mg-3 mg/3 ml Soln] Scopolamine 1 mg/72 Hr Patch 1 patch TRANSDERM Q72H #30 patch 08/04/24 08/29/24 Rx [TransDerm Scop] Amoxic-Pot Clav 875-125Mg 1 tab PO BID 08/19/24 08/29/24 History [Augmentin 875-125] Cholecalciferol (Vitamin D3) 1,250 mcg PO MOTH 08/29/24 08/29/24 History [Vitamin D3 (1250 Mcg = 50,000 Iu)] Cholecalciferol [Vitamin D3 (125 125 mcg PO DAILY 08/29/24 08/29/24 History Mcg = 5000 Iu)] Furosemide [Lasix] 20 mg PO DAILY 08/29/24 08/29/24 History Allergies Allergy/AdvReac Type Severity Reaction Status Date / Time piperacillin [From Zosyn] Allergy Rash/Hives Verified 08/29/24 08:45 tazobactam [From Zosyn] Allergy Rash/Hives Verified 08/29/24 08:45 Physical Exam Vitals: Vital Signs Temp Pulse Resp BP Pulse Ox FiO2 09/08/24 08:56 50 09/08/24 08:13 82 09/08/24 08:04 60 09/08/24 08:00 84 09/08/24 07:00 82 21 126/61 98 09/08/24 06:30 78 20 134/63 97 09/08/24 06:00 75 20 121/61 95 09/08/24 05:30 83 22 121/66 95 09/08/24 05:00 83 22 89/47 97 09/08/24 04:30 66 20 90/40 97 09/08/24 04:00 98.5 F 66 20 87/41 97 60 09/08/24 03:54 60 09/08/24 03:30 65 20 84/45 96 09/08/24 03:00 72 20 114/54 98 09/08/24 02:30 68 20 116/61 96 09/08/24 02:00 74 20 133/61 93 L 09/08/24 01:30 86 20 141/69 94 L 09/08/24 01:00 86 21 127/62 94 L 09/08/24 00:39 60 09/08/24 00:30 86 23 138/63 94 L 09/08/24 00:00 98.4 F 92 21 127/67 91 L 60 09/07/24 23:30 86 21 129/63 98 09/07/24 23:00 91 22 119/60 98 09/07/24 22:30 75 20 105/53 97 09/07/24 22:24 60 09/07/24 22:00 70 20 115/64 100 09/07/24 21:30 65 20 81/39 99 09/07/24 21:00 69 20 86/37 100 09/07/24 20:56 80 09/07/24 20:54 100 09/07/24 20:30 66 20 115/63 100 09/07/24 20:00 98.2 F 80 20 125/56 100 100 09/07/24 19:00 74 21 141/67 95 09/07/24 18:55 100 09/07/24 18:30 82 20 127/61 93 L 09/07/24 18:00 82 21 118/57 96 09/07/24 17:30 76 20 116/65 95 09/07/24 17:00 78 20 118/63 94 L 09/07/24 16:30 90 20 126/66 96 60 09/07/24 16:00 89 20 120/64 96 45 09/07/24 15:30 98.4 F 88 20 122/60 96 60 09/07/24 15:00 79 20 111/56 98 09/07/24 14:57 60 09/07/24 14:30 86 20 111/59 98 09/07/24 14:00 84 20 108/58 98 09/07/24 13:30 89 20 98/51 99 09/07/24 13:00 90 20 98/57 99 09/07/24 12:30 87 20 99/50 98 09/07/24 12:00 85 20 88/66 100 45 09/07/24 11:30 96 20 87/48 98 09/07/24 11:02 60 09/07/24 11:00 93 20 122/56 98 09/07/24 10:30 110 H 22 144/66 71 L 09/07/24 10:00 89 30 H 124/68 91 L 09/07/24 09:30 89 26 H 138/67 91 L 80 Intake and Output 09/07/24 09/08/24 09/08/24 22:59 06:59 14:59 Intake Total 950 1080 125 Output Total 1100 1100 50 Balance -150 -20 75 Intake: IV 755 560 60 0.9 80 60 10 Ceftazidime/Avibactam 2.5 100 gm In Sodium Chloride 0. 9% 100 ml @ 50 mls/hr IVPB Q8HR [facility] Rx#: [id number] Lactated Ringers 1,000 ml 350 400 50 @ 50 mls/hr IV .Q20H [facility] Rx#:[id number] Magnesium Sulfate gm 1 gm 325 Sodium Phosphate 30 mmol Potassium Chloride 58 meq Sodium Acetate 100 meq Calcium Gluconate 0.5 gm In Amino Acids 5 %/ Dextrose 20 % 1,000 ml @ 65 mls/hr IV .BY DURATION [facility] Rx#:[id number] TPN/PPN 195 520 65 Magnesium Sulfate gm 1 gm 65 Sodium Phosphate 30 mmol Potassium Chloride 58 meq Sodium Acetate 100 meq Calcium Gluconate 0.5 gm In Amino Acids 5 %/ Dextrose 20 % 1,000 ml @ 65 mls/hr IV .BY DURATION [facility] Rx#:[id number] Mvi, Adult No.4 with Vit 130 520 65 K 10 ml Trace (Conc-1Ml/ Dose) 1 ml Magnesium Sulfate gm 1 gm Sodium Phosphate 30 mmol Potassium Chloride 58 meq Sodium Acetate 90 meq Calcium Gluconate 0.5 gm In Amino Acids 5 %/ Dextrose 20 % 1,000 ml @ 65 mls/hr IV .BY DURATION [facility] Rx#:[id number] Output: Drainage 750 Medial Abdomen 750 Urine 400 350 50 Stool 700 Other: Voiding Method External Catheter External Catheter Weight 107.2 kg Results 09/08/24 05:30 09/08/24 05:30 Cardiac Enzymes 09/08/24 Range/Units 05:30 AST 36 (17-59) U/L CBC 09/08/24 Range/Units 05:30 WBC 6.04 (4.50-10.00) 10*3/uL RBC 3.30 L (4.40-5.60) 10*6/uL Hgb 7.7 L (13.0-17.0) g/dL Hct 27.2 L (39.6-50.0) % Plt Count 77 L (140-440) 10*3/uL Comprehensive Metabolic Panel 09/08/24 Range/Units 05:30 Sodium 143 (137-145) mmol/L Potassium 4.1 (3.5-5.1) mmol/L Chloride 107 (98-107) mmol/L Carbon Dioxide 34 H (22-30) mmol/L BUN 24 H (9-20) mg/dL Creatinine 0.29 L (0.66-1.25) mg/dL Glucose 163 H (74-99) mg/dL Calcium 7.5 L (8.4-10.2) mg/dL AST 36 (17-59) U/L ALT 28 (4-49) U/L Alkaline Phosphatase 92 (38-126) U/L Total Protein 5.7 L (6.3-8.2) g/dL Albumin 2.1 L (3.5-5.0) g/dL Current Medications Generic Name Dose Route Start Last Admin Trade Name Freq PRN Reason Stop Dose Admin Albuterol/Ipratropium 3 ml 08/29/24 08:15 09/08/24 08:03 Ipratropium-Albuterol 3 Ml Neb INHALATION 3 ml RT-Q4H PRN Administration shortness of breath Artificial Tears 1 drops 09/04/24 10:23 09/04/24 12:52 Artificial Tears-Hypromellose Drops 15 Ml Btl BOTH EYES 1 drops QID PRN Administration Dry Eye(s) Enoxaparin Sodium 90 mg 08/29/24 21:00 09/08/24 09:06 Enoxaparin 100 Mg/Ml Syringe SQ Not Given Q12HR [facility] Furosemide 20 mg 09/08/24 09:00 Furosemide 10 Mg/Ml 2 Ml Vial IV Q12HR [facility] Hydrocortisone Sodium Succinate 50 mg 09/05/24 16:00 09/08/24 08:07 Hydrocortisone Succinate 100 Mg/2 Ml Vial IV 50 mg Q8HR [facility] Administration Hydromorphone HCl 1 mg 09/07/24 16:30 09/08/24 08:03 Hydromorphone 1 Mg/Ml 1 Ml Syringe IVP 1 mg Q3H PRN Administration Pain Fat Emulsion Intravenous 250 250 mls @ 21 mls/hr 08/30/24 09:00 09/05/24 09:04 ml/ IV Solution IV 21 mls/hr Q72H [facility] Administration Lactated Ringer's 1,000 mls @ 50 mls/hr 08/29/24 16:00 09/08/24 05:25 Lactated Ringers IV 50 mls/hr .Q20H [facility] Administration Norepinephrine Bitartrate 8 mg 258 mls @ 5.003 mls/hr 08/29/24 22:30 09/05/24 13:00 / Sodium Chloride IV 0 mcg/kg/min .Q24H [facility] 0 mls/hr Titration Protocol 0.03 MCG/KG/MIN Ceftazidime/Avibactam 2.5 gm/ 100 mls @ 50 mls/hr 09/02/24 16:00 09/08/24 08:16 Sodium Chloride IVPB 50 mls/hr Q8HR [facility] Administration Protocol Tobramycin Sulfate 610 mg/ 115.25 mls @ 115.25 mls/hr 09/04/24 18:00 09/06/24 18:52 Sodium Chloride IVPB 115.25 mls/hr Q48H [facility] Administration Parenteral Vitamin Supplement 1,102 mls @ 65 mls/hr 09/07/24 21:00 09/07/24 21:53 10 ml/ Zinc/Copper/Manganese/ IV 65 mls/hr Selenium 1 ml/ Magnesium .BY DURATION [facility] Administration Sulfate 1 gm/ Sodium Phosphate 30 mmol/ Potassium Chloride 58 meq/ Sodium Acetate 90 meq/ Calcium Gluconate 0.5 gm/ Amino Acids/Dextrose Magnesium Sulfate 1 gm/ Sodium 1,091 mls @ 65 mls/hr 09/07/24 21:00 Phosphate 30 mmol/ Potassium IV Chloride 58 meq/ Sodium .BY DURATION [facility] Acetate 90 meq/ Calcium Gluconate 0.5 gm/ Amino Acids/ Dextrose Propofol 1,000 mg/ IV Solution 100 mls @ 32.13 mls/hr 09/07/24 10:10 09/08/24 08:14 IV Not Given .Q3H7M [facility] Protocol 50 MCG/KG/MIN Lorazepam 0.5 mg 09/08/24 09:10 Lorazepam 1 Mg/0.5 Ml Vial IV Q6HR PRN Anxiety Miscellaneous Information 1 each 08/29/24 08:15 Pneumonia Protocol Utilized 1 Each Misc PO ONCE PRN Per Protocol Miscellaneous Information 1 each 08/29/24 10:10 Potassium Replacement Protocol 1 Each Misc MISCELLANE DAILY PRN Per Protocol Protocol Miscellaneous Information 1 each 09/02/24 08:18 Magnesium Replacement Protocol 1 Each Misc MISCELLANE DAILY PRN Per Protocol Protocol Naloxone HCl 0.2 mg 08/29/24 10:56 Naloxone 0.4 Mg/Ml 1 Ml Vial IV Q2M PRN Opioid Reversal Ondansetron HCl 4 mg 08/29/24 14:08 09/01/24 19:41 Ondansetron 4 Mg/2 Ml Vial IVP 4 mg Q6HR PRN Administration Nausea And Vomiting Pantoprazole Sodium 40 mg 08/30/24 09:00 09/08/24 08:07 Pantoprazole 40 Mg/10 Ml Vial IV 40 mg DAILY [facility] Administration Psyllium Hydrophilic Mucilloid 6 gm 09/04/24 21:00 09/08/24 07:54 Psyllium Husk 100% 6 Gm Packet PO Not Given BID [facility] Intake and Output 09/07/24 09/08/24 09/08/24 22:59 06:59 14:59 Intake Total 950 1080 125 Output Total 1100 1100 50 Balance -150 -20 75 Intake: IV 755 560 60 0.9 80 60 10 Ceftazidime/Avibactam 2.5 100 gm In Sodium Chloride 0. 9% 100 ml @ 50 mls/hr IVPB Q8HR [facility] Rx#: [id number] Lactated Ringers 1,000 ml 350 400 50 @ 50 mls/hr IV .Q20H [facility] Rx#:[id number] Magnesium Sulfate gm 1 gm 325 Sodium Phosphate 30 mmol Potassium Chloride 58 meq Sodium Acetate 100 meq Calcium Gluconate 0.5 gm In Amino Acids 5 %/ Dextrose 20 % 1,000 ml @ 65 mls/hr IV .BY DURATION [facility] Rx#:[id number] TPN/PPN 195 520 65 Magnesium Sulfate gm 1 gm 65 Sodium Phosphate 30 mmol Potassium Chloride 58 meq Sodium Acetate 100 meq Calcium Gluconate 0.5 gm In Amino Acids 5 %/ Dextrose 20 % 1,000 ml @ 65 mls/hr IV .BY DURATION [facility] Rx#:[id number] Mvi, Adult No.4 with Vit 130 520 65 K 10 ml Trace (Conc-1Ml/ Dose) 1 ml Magnesium Sulfate gm 1 gm Sodium Phosphate 30 mmol Potassium Chloride 58 meq Sodium Acetate 90 meq Calcium Gluconate 0.5 gm In Amino Acids 5 %/ Dextrose 20 % 1,000 ml @ 65 mls/hr IV .BY DURATION [facility] Rx#:[id number] Output: Drainage 750 Medial Abdomen 750 Urine 400 350 50 Stool 700 Other: Voiding Method External Catheter External Catheter Weight 107.2 kg 09/08/24 05:30 09/08/24 05:30
[2024-09-08] MEDS: FUROSEMIDE 10 MG/ML 2 ML VIAL IV SCH (10:13)
[2024-09-08] MEDS: LORazepam 1 MG/0.5 ML VIAL IV PRN (11:47)
--- NOTE | 2024-09-08 14:42 | P.PN ---
Subjective Progress Note Date: 09/07/24 Principal diagnosis: Reason for follow-up is sepsis and pneumonia Patient is a 49-year-old male with a past medical history significant for CVA TIA DVT pneumonia history of complicated Crohn's disease in this patient who did have multiple abdominal surgeries patient also have a tracheostomy has been brought to the hospital with Generalized weakness did have a fever c oncerning for pneumonia on today's evaluation that is 09/07/2024, patient has been afebrile, patient did have a bronchoscopy lavage completed this morning by pulmonary patient slightly sleepy proceed with breathing more comfortably is currently on a 60% FiO2 hemodynamically stable not requiring any pressor support. Patient did have a white count of 6.96, creatinine 0.33 Objective - Vital Signs Vital signs: Vital Signs Temp 8.7 F L 09/07/24 08:00 Pulse 85 09/07/24 12:00 Resp 20 09/07/24 12:00 BP 88/66 09/07/24 12:00 Pulse Ox 100 09/07/24 12:00 FiO2 45 09/07/24 12:00 Intake & Output 09/06/24 09/07/24 09/07/24 18:59 06:59 18:59 Intake Total 1625 1595 784.636 Output Total 800 1150 Balance 825 445 784.636 Weight 107.1 kg Intake: IV 1625 880 555 0.9 130 80 30 Ceftazidime/Avibactam 2.5 100 gm In Sodium Chloride 0. 9% 100 ml @ 50 mls/hr IVPB Q8HR [facility]PLAC[facility] BY [facility] Rx#: [id number] Lactated Ringers 1,000 ml 650 500 100 @ 50 mls/hr IV .Q20H [facility]PLACED BY [facility] Rx#:[id number] Magnesium Sulfate gm 1 gm 325 Sodium Phosphate 30 mmol Potassium Chloride 58 meq Sodium Acetate 100 meq Calcium Gluconate 0.5 gm In Amino Acids 5 %/ Dextrose 20 % 1,000 ml @ 65 mls/hr IV .BY DURATION REPLACED BY [facility] Rx#:[id number] Magnesium Sulfate-D5w Pmx 100 1 gm In Dextrose/Water 1 100ml.bag @ 100 mls/hr IVPB ONCE ONE Rx#: [id number] Mvi, Adult No.4 with Vit 845 K 10 ml Trace (Conc-1Ml/ Dose) 1 ml Magnesium Sulfate gm 1 gm Sodium Phosphate 30 mmol Potassium Chloride 52 meq Sodium Acetate 110 meq Calcium Gluconate 0.5 gm In Amino Acids 5 %/ Dextrose 20 % 1,000 ml @ 65 mls/hr IV .BY DURATION REPLACED BY [facility] Rx#:[id number] Potassium Chloride 10 meq 100 100 In Water For Injection 1 100ml.bag @ 100 mls/hr IVPB Q1H [facility] Rx#: [id number] Intake, IV Titration 164.636 Amount Ceftazidime/Avibactam 2.5 100 gm In Sodium Chloride 0. 9% 100 ml @ 50 mls/hr IVPB Q8HR [facility] Rx#: [id number] propofoL 1,000 mg In 64.636 Empty Bag 1 bag @ 50 MCG/ KG/MIN 32.13 mls/hr IV . Q3H7M [facility] Rx#:[id number] TPN/PPN 715 65 Magnesium Sulfate gm 1 gm 195 65 Sodium Phosphate 30 mmol Potassium Chloride 58 meq Sodium Acetate 100 meq Calcium Gluconate 0.5 gm In Amino Acids 5 %/ Dextrose 20 % 1,000 ml @ 65 mls/hr IV .BY DURATION REPLACED BY [facility] Rx#:[id number] Mvi, Adult No.4 with Vit 520 K 10 ml Trace (Conc-1Ml/ Dose) 1 ml Magnesium Sulfate gm 1 gm Sodium Phosphate 30 mmol Potassium Chloride 52 meq Sodium Acetate 110 meq Calcium Gluconate 0.5 gm In Amino Acids 5 %/ Dextrose 20 % 1,000 ml @ 65 mls/hr IV .BY DURATION REPLACED BY [facility] Rx#:[id number] Output: Drainage 700 Medial Abdomen 700 Urine 100 450 Stool 700 Other: Voiding Method External Catheter External Catheter External Catheter - Exam GENERAL DESCRIPTION: Middle-age male intubated on the vent RESPIRATORY SYSTEM: Unlabored breathing , decreased breath sounds at bases HEART: S1 S2 regular rate and rhythm , ABDOMEN: Soft , no tenderness EXTREMITIES: Swelling to the leg - Labs CBC & Chem 7: 09/08/24 05:30 09/08/24 05:30 Labs: Abnormal Lab Results - Last 24 Hours (Table) 09/07/24 09/07/24 Range/Units 04:36 04:36 RBC 3.41 L (4.40-5.60) 10*6/uL Hgb 7.9 L (13.0-17.0) g/dL Hct 28.0 L (39.6-50.0) % MCH 23.2 L (27.0-32.0) pg MCHC 28.2 L (32.0-37.0) g/dL Plt Count 90 L (140-440) 10*3/uL Carbon Dioxide 33 H (22-30) mmol/L BUN 24 H (9-20) mg/dL Creatinine 0.33 L (0.66-1.25) mg/dL Glucose 163 H (74-99) mg/dL Calcium 7.7 L (8.4-10.2) mg/dL Assessment and Plan (1) Pneumonia Current Visit: Yes Status: Acute Code(s): J18.9 - PNEUMONIA, UNSPECIFIED ORGANISM SNOMED Code(s): 280437536 (2) Sepsis Current Visit: Yes Status: Acute Code(s): A41.9 - SEPSIS, UNSPECIFIED ORGANISM SNOMED Code(s): 74261731 Plan: 1patient is a hospital with sepsis in this patient who did have fever tachycardia elevated lactic acid upon meeting criteria for SIRS/sepsis source likely pneumonia in this patient who did have history of recurrent multidrug- resistant Pseudomonas pneumonia and will need to cover for that pathogen while waiting for the culture to be finalized 2-blood cultures has been negative and sputum culture growing Pseudomonas that is sensitive to Avycaz and tobramycin, Zerbaxa sensitivity not reported 3-patient did have resolution of his fever and his white count has normalized 4patient is status post bronchoscopy lavage results will be followed currently being treated with Avycaz day #6 along with the tobramycin and creatinine mother at the bedside question answered Dictation was produced using [employer] dictation software. please excuse any grammatical, word or spelling errors. Time with Patient: Less than 30
--- NOTE | 2024-09-08 14:43 | P.PN ---
Subjective Progress Note Date: 09/08/24 Principal diagnosis: Reason for follow-up is sepsis and pneumonia Patient is a 49-year-old male with a past medical history significant for CVA TIA DVT pneumonia history of complicated Crohn's disease in this patient who did have multiple abdominal surgeries patient also have a tracheostomy has been brought to the hospital with Generalized weakness did have a fever c oncerning for pneumonia on today's evaluation that is 09/08/2024, Patient is afebrile this morning p atient remains to be debated on the vent FiO2 is currently down to 50% still complaining of feeling short of breath chest congestion no vomiting or worsening diarrhea reported. Patient white count 6.04, creatinine 0.2 9, BAL cultures currently pending chest x-ray this morning worsening bilateral lung infiltrate correlate for atypical pneumonia Objective - Vital Signs Vital signs: Vital Signs Temp 98.5 F 09/08/24 04:00 Pulse 98 09/08/24 14:30 Resp 27 H 09/08/24 14:30 BP 135/73 09/08/24 14:30 Pulse Ox 92 L 09/08/24 14:30 FiO2 50 09/08/24 12:00 Intake & Output 09/07/24 09/08/24 09/08/24 18:59 06:59 18:59 Intake Total 4866.740 1024 1205 Output Total 1000 1500 1650 Balance 495.239 80 -445 Weight 107.2 kg Intake: IV 1255 865 585 0.9 90 100 80 Ceftazidime/Avibactam 2.5 100 gm In Sodium Chloride 0. 9% 100 ml @ 50 mls/hr IVPB Q8HR [facility] Rx#: [id number] Fat Emulsion 20% 250 ml 105 In Empty Bag 1 bag @ 21 mls/hr IV Q72H [facility] Rx#: [id number] Lactated Ringers 1,000 ml 350 600 400 @ 50 mls/hr IV .Q20H [facility] Rx#:[id number] Magnesium Sulfate gm 1 gm 715 65 Sodium Phosphate 30 mmol Potassium Chloride 58 meq Sodium Acetate 100 meq Calcium Gluconate 0.5 gm In Amino Acids 5 %/ Dextrose 20 % 1,000 ml @ 65 mls/hr IV .BY DURATION [facility] Rx#:[id number] Potassium Chloride 10 meq 100 In Water For Injection 1 100ml.bag @ 100 mls/hr IVPB Q1H [facility] Rx#: [id number] Intake, IV Titration 175.239 100 Amount Ceftazidime/Avibactam 2.5 100 gm In Sodium Chloride 0. 9% 100 ml @ 50 mls/hr IVPB Q8HR [facility] Rx#: [id number] Magnesium Sulfate-D5w Pmx 100 1 gm In Dextrose/Water 1 100ml.bag @ 100 mls/hr IVPB ONCE ONE Rx#: [id number] propofoL 1,000 mg In 75.239 Empty Bag 1 bag @ 50 MCG/ KG/MIN 32.13 mls/hr IV . Q3H7M [facility] Rx#:[id number] TPN/PPN 65 715 520 Magnesium Sulfate gm 1 gm 65 65 Sodium Phosphate 30 mmol Potassium Chloride 58 meq Sodium Acetate 100 meq Calcium Gluconate 0.5 gm In Amino Acids 5 %/ Dextrose 20 % 1,000 ml @ 65 mls/hr IV .BY DURATION [facility] Rx#:[id number] Mvi, Adult No.4 with Vit 650 520 K 10 ml Trace (Conc-1Ml/ Dose) 1 ml Magnesium Sulfate gm 1 gm Sodium Phosphate 30 mmol Potassium Chloride 58 meq Sodium Acetate 90 meq Calcium Gluconate 0.5 gm In Amino Acids 5 %/ Dextrose 20 % 1,000 ml @ 65 mls/hr IV .BY DURATION [facility] Rx#:[id number] Output: Drainage 750 500 Medial Abdomen 750 500 Urine 634 675 2491 Stool 700 Other: Voiding Method External Catheter External Catheter External Catheter # Voids 2 - Exam GENERAL DESCRIPTION: Middle-age male intubated on the vent RESPIRATORY SYSTEM: Unlabored breathing , decreased breath sounds at bases HEART: S1 S2 regular rate and rhythm , ABDOMEN: Soft , no tenderness EXTREMITIES: Swelling to the leg - Labs CBC & Chem 7: 09/08/24 05:30 09/08/24 05:30 Labs: Abnormal Lab Results - Last 24 Hours (Table) 09/08/24 09/08/24 Range/Units 05:30 05:30 RBC 3.30 L (4.40-5.60) 10*6/uL Hgb 7.7 L (13.0-17.0) g/dL Hct 27.2 L (39.6-50.0) % MCH 23.3 L (27.0-32.0) pg MCHC 28.3 L (32.0-37.0) g/dL Plt Count 77 L (140-440) 10*3/uL Immature Plt Fraction 16.2 H (1.1-6.1) % Carbon Dioxide 34 H (22-30) mmol/L BUN 24 H (9-20) mg/dL Creatinine 0.29 L (0.66-1.25) mg/dL Glucose 163 H (74-99) mg/dL Calcium 7.5 L (8.4-10.2) mg/dL Total Bilirubin 1.4 H (0.2-1.3) mg/dL Total Protein 5.7 L (6.3-8.2) g/dL Albumin 2.1 L (3.5-5.0) g/dL Microbiology - Last 24 Hours (Table) 09/07/24 10:40 Gram Stain - Preliminary Bronchial Washings - Random Assessment and Plan (1) Pneumonia Current Visit: Yes Status: Acute Code(s): J18.9 - PNEUMONIA, UNSPECIFIED ORGANISM SNOMED Code(s): 976703240 (2) Sepsis Current Visit: Yes Status: Acute Code(s): A41.9 - SEPSIS, UNSPECIFIED ORGANISM SNOMED Code(s): 75160464 Plan: 1patient is a hospital with sepsis in this patient who did have fever tachycardia elevated lactic acid upon meeting criteria for SIRS/sepsis source likely pneumonia in this patient who did have history of recurrent multidrug- resistant Pseudomonas pneumonia and will need to cover for that pathogen while waiting for the culture to be finalized 2-blood cultures has been negative and sputum culture growing Pseudomonas that is sensitive to Avycaz and tobramycin, Zerbaxa sensitivity not reported 3-patient did have resolution of his fever and his white count has normalized 4patient is status post bronchoscopy lavage results currently pending, patient being treated with Avycaz day #7 along with the tobramycin chest x-ray shows slight worsening may need to adjust antibiotic further on the basis of BAL culture prognosis guarded Dictation was produced using [employer] dictation software. please excuse any grammatical, word or spelling errors. Time with Patient: Less than 30
[2024-09-08] MEDS ORDERED: VANCOMYCIN IV PER PHARMACY 1 EACH MISC MISCELLANE PRN (16:22)
--- NOTE | 2024-09-08 16:30 | P.PN ---
Subjective Progress Note Date: 09/08/24 This is a 49-year-old white male familiar to my service, history of paraplegia, home vent dependent, history of tracheostomy, patient had multiple admissions to the ICU for recurrent episodes of pneumonia and respiratory failure requiring ventilatory support. On his last admission patient was eventually discharged home on a home ventilator, and this was back on 08/04/2024. Patient was discharged home with a PICC line, patient was in the ER yesterday on 08/28 for abnormal labs mostly low potassium and low sodium discharged home however he came back today complaining of shortness of breath, has been ventilator dependent all along. Chest x-ray showed basically bibasilar opacities/atelectasis, doubt pneumonia, the findings in the left lower lobe are chronic. Patient did have previous history of pneumonia involving the left lower lobe and he had multiple bronchoscopies in the past. Bronchial cultures and sputum cultures have been positive in the past for mostly Pseudomonas aeruginosa. Patient was seen in the ER today, and he is already on cefepime for empiric coverage for potential left lower lobe pneumonia, patient had abnormal electrolytes with relatively low sodium low potassium, no leukocytosis, normal renal profile, blood pressure was soft, and he was given fluid boluses. Lactic acid was 2.1, D-dimer is normal, patient was admitted, and this consult was initiated. 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 Patient was seen today on 08/30/2024, patient continues to have intermittent episodes of fever with Tmax of 102, patient required norepinephrine and he remains on norepinephrine at 0.04 mcg/kg/min remains on LR at 130 cc/h remains on his home ventilator at tidal volume of 450 rate of 20 FiO2 45% and PEEP of 5. Seems comfortable, not in distress, his WBC is 3.5 hemoglobin 10.0 electrolytes are normal renal profile is normal potassium is borderline low. Patient remains on cefepime, vancomycin was added because of his previous history of MRSA, and is on cefepime for previous history of pseudomonal infection and now that the patient may be septic it is more of a reason to broaden the spectrum of antibiotics coverage with cefepime and vancomycin. Sputum cultures and blood cultures are pending. Patient does have history of pseudomonal and history of MRSA infections, and I discontinued his Zithromax today replace Zithromax with vancomycin. Viral screen is negative Legionella antigen is negative. Chest x- ray is relatively unchanged continues to show bibasilar opacities atelectasi s/pneumonia. Progress note dated August 31, 2024. The patient is seen today in room 252. The patient was admitted a couple days ago, to the intensive care unit. The patient is currently on mechanical ventilator, actually his home ventilator. He is on volume assist-control, rate 20, tidal volume 450, FiO2 45% PEEP of 5. The patient is getting lactated Ringer's at 130 cc an hour, TPN at 91 cc an hour, norepinephrine at 8 mcg/min. Doppler of the left upper extremity was negative. He continues on Zerbaxa, and vancomycin. We will check a procalcitonin level. Cultures thus far are negative. He does have a previous history of methicillin-resistant Staph aureus infection, and pseudomonal infections. White count was 2.21, hemoglobin 9.3, hematocrit 32, platelet count 1 61,000. D-dimer was 5.78. Sodium 132, potassium 4.3, chlorides 106, CO2 21, BUN 18, creatinine 0.28. Glucose was 141. Calcium 7.8. C. difficile study was negative. Urine Legionella antigen was negative. Microbiologic studies are currently negative. Chest x-ray shows bibasilar airspace opacities, possibly consistent with pneumonia. 09/01/24 - The patient is seen today in room 252. Admitted to the hospital and the intensive care unit on 08/29/2024. The patient is currently on mechanical ventilator, his one from home. He is on volume assist control, rate of 20, tidal volume of 450, FiO2 45% and PEEP of 5. He currently has LR running at 50 cc/h, TPN at 91 cc/h, Zerbaxa and tobramycin. Chest Xray done this morning showed stable airspace opacities. Cultures are positive for pseudomonas aeruginosa, awaiting sensitivities. WBCs 2.69, Hgb 8.9, Hct 31.5, PLT 153, Na 135, K 3.4, Cl 109, HCO3 19, BUN 22, Cr 0.34, Phos 2.4. 09/02/24 - He is seen today in room 252. Admitted to the hospital and ICU on 08/29/24. He continues on mechanical ventilator, his one from home. He remaines on volume assist control, rate of 20, tidal volume of 450, FiO2 45% and PEEP of 5. He continues to have LR running at 50 cc/h, TPN at 91 cc/h, norepinephrine at 0.13 mcg/kg/min, Zebraxa and Tobramycin. Chest XRay this morning showed stable airspace opacities. Continue to await sensitivity of pseudomonas sputum culture. Lab work shows WBCs 3.64, Hgb 9.7, Hct 33.5, PLT 130, Na 133, K 3.9, bicarb 21, BUN 23, Cr 0.36, Ca 7.8, Mg 2.4, Albumin 2.3. 09/03/24 - He is seen in room 252. Admitted to the hospital and ICU on 08/29/24. He continues on mechanical ventilator, his one from home. He remaines on volume assist control, rate of 20, tidal volume of 450, FiO2 45% and PEEP of 5. He continues to have LR running at 50 cc/h, TPN at 91 cc/h, norepinephrine at 0.24 mcg/kg/min, Avycaz and Tobramycin. Zebraxa was discontinued as there was no reported sensitivity to it. Lab work shows WBCs 9.40, Hgb 8.8, Hct 30.6, PLT 100, Na 130, K 3.6, bicarb 23, BUN 25, Cr 0.51, Ca 7.8, Ionized Ca 4.6, Phos 3.3, Mg 2.1, TSH 2.710 and random cortisol 13.1. 09/04/24 - He is seen in room 252. Admitted to the hospital and ICU on 08/29/24. He continues on mechanical ventilator, his one from home. He remaines on volume assist control, rate of 20, tidal volume of 450, FiO2 45% and PEEP of 5. He continues to have LR running at 50 cc/h, TPN at 91 cc/h, norepinephrine at 0.24 mcg/kg/min, Avycaz and Tobramycin. Lab work shows sodium 133, potassium 3.5, bicarb 24, BUN 27, creatinine 0.47, calcium 7.9, ionized calcium 4.6, magnesium 1.9, phosphorus 3.0, total bilirubin 1.7, AST 57, ALT 45, alkaline phosphatase 99. Progress note dated September 05, 2024. 49-year-old male well-known to our service. He is seen today in room 252. He continues on volume assist-control, rate 20, tidal 450, FiO2 45%, PEEP of 5. The patient has refused blood gases. Currently, he is getting TPN at 65 cc an hour, norepinephrine at 1 mcg/min, LR at 50 cc/h. Clinically, the patient is doing well. His chest x-ray remains about the same. Yesterday he was on a hig her dose of norepinephrine, and also was on vasopressin. Both have been weaned off. Current labs include a sodium 136, potassium 4.1, chlorides 101, CO2 28, BUN 30, creatinine 0.37. Glucose 153. Albumin is 2.2. Previous sputum, from August 29 with positive for Pseudomonas aeruginosa. Chest x-ray is largely unchanged. Progress note dated September 06, 2024. 49-year-old male again seen today in the intensive care unit, room 252. He remains on mechanical ventilator, actually his home ventilator, with settings of volume assist-control, rate 20, tidal volume 450, FiO2 45%, PEEP of 5. No blood gases today. The patient has been refusing. He is getting lactated Ringer's at 50 cc an hour, TPN at 65 cc an hour. He continues on the same antibiotics. White count 5.21, hemoglobin 7.9, hematocrit 27.5, and platelet count 64,000. Sodium 141, potassium 3.5, chlorides 102, CO2 32, BUN 25, and creatinine 0.35. Glucose is 152. Calcium is 8. Albumin is 2.1. Chest x-ray is largely unchanged. 09/07/2024, the patient remains on a mechanical ventilator. The patient is having excessive respiratory secretions. Attempts to suction this patient has failed as the secretions are quite thick and the patient has had episodes of bradycardia while suctioning. Remains on TPN at 65 cc an hour and lactated Ringer at 50 cc an hour. Remains on assist-control mode mechanical ventilation at rate of 20, tidal volume of 450, FiO2 of 100% with a PEEP of 8. Patient has refused to have an arterial line. The patient has refused blood gases. Urine output is adequate. No hypotension. He has a double-lumen catheter in his left chest and the left forearm IV line.He is afebrile. He continues to have multidrug-resistant Pseudomonas in his sputum. The patient remains on ceftazidime/avibactam per IDs recommendations. He is also on IV tobramycin. Remains on stress dose hydrocortisone. Blood work shows a white cell count of 6.9, hemoglobin 7.9 and a platelet count of 90. BUN is 24 with a creatinine of 0.33. Sodium is 143 and a potassium level of 3.7. Bicarb level is at 33. Output from the ileostomy bag is high and the net fluid balance is +1.2 L over the past 24 hours. Airway pressures on the mechanical ventilator are elevated with an elevated peak airway pressure around 36 consistent with excessive respiratory secretions and mucous plugs. Chest x-ray shows atelectatic changes infiltrates in lung bases along with some scattered hazy bilateral pulmonary infiltrates. 09/08/2024, the patient is being seen for a follow-up. On today's evaluation, the patient is awake on no sedation. His chest x-ray showing worsening bilateral pulmonary filtrates. Running low-grade fever. A bronchoscopy in the BAL was done yesterday and the results are still pending for now. He remains on assist-control mode at rate of 20, tidal volume of 450, FiO2 of 60% with a PEEP of 8. He remains on lactated Ringer at rate of 50 cc an hour and TPN at rate of 65 cc an hour. He remains on IV Lasix. He remains on ceftazidime/avibactam regarding his multidrug-resistant Pseudomonas. He is also on tobramycin. The white cell count is 6 with a hemoglobin 7.7 and platelet count of 77. Sodium is at 143, BUN 24 with a creatinine of 0.2. Serum bicarb is at 34. LFTs are within normal limits. The patient had no blood cares for today. He has refused blood gases. On a separate note, cardiology was consulted regarding the episodes of bradycardia that the patient is encountering. Upon sectioning, the patient is having episodes of cardiac block, likely third-degree AV block that last around 5 to 8 seconds. Patient was taken off the scopolamine patch. Objective - Vital Signs Vital signs: Vital Signs Temp 98.5 F 09/08/24 04:00 Pulse 82 09/08/24 08:13 Resp 21 09/08/24 07:00 BP 126/61 09/08/24 07:00 Pulse Ox 98 09/08/24 07:00 FiO2 60 09/08/24 08:04 Intake & Output 09/07/24 09/08/24 09/08/24 18:59 06:59 18:59 Intake Total 1981.647 0273 125 Output Total 1000 1500 50 Balance 495.239 80 75 Weight 107.2 kg Intake: IV 1255 865 60 0.9 90 100 10 Ceftazidime/Avibactam 2.5 100 gm In Sodium Chloride 0. 9% 100 ml @ 50 mls/hr IVPB Q8HR [facility] Rx#: [id number] Lactated Ringers 1,000 ml 350 600 50 @ 50 mls/hr IV .Q20H [facility] Rx#:[id number] Magnesium Sulfate gm 1 gm 715 65 Sodium Phosphate 30 mmol Potassium Chloride 58 meq Sodium Acetate 100 meq Calcium Gluconate 0.5 gm In Amino Acids 5 %/ Dextrose 20 % 1,000 ml @ 65 mls/hr IV .BY D[facility] Rx#:[id number] Potassium Chloride 10 meq 100 In Water For Injection 1 100ml.bag @ 100 mls/hr IVPB Q1H [facility] Rx#: [id number] Intake, IV Titration 175.239 Amount Ceftazidime/Avibactam 2.5 100 gm In Sodium Chloride 0. 9% 100 ml @ 50 mls/hr IVPB Q8HR [facility] Rx#: [id number] propofoL 1,000 mg In 75.239 Empty Bag 1 bag @ 50 MCG/ KG/MIN 32.13 mls/hr IV . Q3H7M [facility] Rx#:[id number] TPN/PPN 65 715 65 Magnesium Sulfate gm 1 gm 65 65 Sodium Phosphate 30 mmol Potassium Chloride 58 meq Sodium Acetate 100 meq Calcium Gluconate 0.5 gm In Amino Acids 5 %/ Dextrose 20 % 1,000 ml @ 65 mls/hr IV .BY DURATION [facility] Rx#:[id number] Mvi, Adult No.4 with Vit 650 65 K 10 ml Trace (Conc-1Ml/ Dose) 1 ml Magnesium Sulfate gm 1 gm Sodium Phosphate 30 mmol Potassium Chloride 58 meq Sodium Acetate 90 meq Calcium Gluconate 0.5 gm In Amino Acids 5 %/ Dextrose 20 % 1,000 ml @ 65 mls/hr IV .BY DURATION [facility] Rx#:[id number] Output: Drainage 750 Medial Abdomen 750 Urine 300 750 50 Stool 700 Other: Voiding Method External Catheter External Catheter - Exam No acute distress, currently connected to the ventilator. He has a tracheostomy tube in place. The patient has a #6 [address] tracheostomy tube in place. Lethargic, follows simple commands. Profoundly weak in all 4 extremities. HEENT examination is grossly unremarkable. Mucous membranes are moist. No oral lesions. Neck supple. Full range of motion. No adenopathy thyromegaly or neck vein distention. Cardiovascular examination reveals regular rhythm rate. S1-S2 normal. No S3 or S4. No discernible murmur noted. Lungs reveal clear breath sounds. Breath sounds are diminished bilaterally and scattered rhonchi heard throughout the lung craft bilaterally. Tracheostomy tube in place. Abdomen reveals an enterocutaneous fistula, normal bowel sounds. No tenderness. No masses. Extremities are intact. No cyanosis clubbing and there is edema in his left lower extremity and upper extremities bilaterally. The patient has a below-knee amputation his right lower extremity. Skin is without rash or lesion. Neurologic examination is brief but nonfocal. He does have significant muscle atrophy, and contractures. He has a right below the knee amputation. Generalized profound weakness. Weak cough. Weak motor functions. - Labs CBC & Chem 7: 09/08/24 05:30 09/08/24 05:30 Labs: Abnormal Lab Results - Last 24 Hours (Table) 09/08/24 09/08/24 Range/Units 05:30 05:30 RBC 3.30 L (4.40-5.60) 10*6/uL Hgb 7.7 L (13.0-17.0) g/dL Hct 27.2 L (39.6-50.0) % MCH 23.3 L (27.0-32.0) pg MCHC 28.3 L (32.0-37.0) g/dL Plt Count 77 L (140-440) 10*3/uL Immature Plt Fraction 16.2 H (1.1-6.1) % Carbon Dioxide 34 H (22-30) mmol/L BUN 24 H (9-20) mg/dL Creatinine 0.29 L (0.66-1.25) mg/dL Glucose 163 H (74-99) mg/dL Calcium 7.5 L (8.4-10.2) mg/dL Total Bilirubin 1.4 H (0.2-1.3) mg/dL Total Protein 5.7 L (6.3-8.2) g/dL Albumin 2.1 L (3.5-5.0) g/dL Microbiology - Last 24 Hours (Table) 09/07/24 10:40 Gram Stain - Preliminary Bronchial Washings - Random Assessment and Plan Plan: Septic shock, likely secondary to Pseudomonas pneumonia, hemodynamically stable and the patient is currently on no pressors Bilateral pneumonia with multidrug-resistant Pseudomonas aeruginosa. The patient is currently on ceftazidime/tazobactam and tobramycin combination. Continues to have excessive respiratory secretions and mucous plugs. Bronchoscopy and BAL of the right lower lobe was done. Culture still pending for now. The patient remains on same antibiotic coverage Low-grade fever Chronic hypoxemic and hypercapnic respiratory failure, ventilator dependent, on a home ventilator, S/P tracheostomy. The patient failed his home ventilator and the patient is currently on a mechanical ventilator assist-control mode. Chest x-ray was noted. No blood Available. History of severe tracheal stenosis, S/P tracheostomy. 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 History of DVT. History of CVA. History of right below-knee amputation. Previous history of asystole/cardiac arrest, 2021. History of Crohn's disease, S/P enterocutaneous fistula, diverting ileostomy. The patient remains on TPN for nutritional support. Plan: Continue ventilator support dropped FiO2 to 50% Bronchoscopy was performed on 09/07/2024 and results are still pending for now. Unable to obtain blood gases Will monitor the pulse ox through the oxygen saturation and wean down FiO2 as tolerated to maintain saturation above 90% He continues on Avycaz, and tobramycin. Add vancomycin as the patient is having low-grade fever Continues on TPN at 65 cc an hour, Lactated Ringer's at 50 cc an hour. Lovenox 90 mg SQ every 12 hours Stress dose hydrocortisone IV Protonix Discontinue scopolamine patch echocardiogram from previous visits was normal. Cardiology will be consulted re garding the episodic AV block that the patient is encountering. Current cardiac rhythm is sinus and the patient is hemodynamically stable. Prognosis remains extremely poor due to above-mentioned comorbidities. Will continue to follow and make further recommendation based on his progress. This evaluation was done at 35 minutes. Time with Patient: Greater than 30
[2024-09-08] MEDS: ACETAMINOPHEN IV (For NPO) 1,000 MG in EMPTY BAG 1 BAG IVPB PRN (16:45)
[2024-09-08] MEDS: VANCOMYCIN 1,500 MG in SODIUM CHLORIDE 0.9% 500 ML 500 ML IVPB SCH (17:54)
[2024-09-08] MEDS ORDERED: ACETAMINOPHEN IV (For NPO) 1,000 MG in EMPTY BAG 1 BAG IVPB SCH (18:00)
[2024-09-09 05:21] LABS: HCT 25.4 % (39.6-50.0); HGB 7.3 g/dL (13.0-17.0); Immature Platelet Fraction 14.5 % (1.1-6.1); MCH 23.5 pg (27.0-32.0); MCHC 28.7 g/dL (32.0-37.0); MCV 81.7 fL (80.0-97.0); RBC 3.11 10*6/uL (4.40-5.60); RDW 19.0 % (11.5-14.5); WBC 4.63 10*3/uL (4.50-10.00)
[2024-09-09 05:27] LABS: Platelet Count 72 10*3/uL (140-440)
[2024-09-09 05:31] LABS: ALT 30 U/L (4-49); AST 27 U/L (17-59); African American GFR (CKD) >90 (>60 ml/min/1.73 sqM); Albumin 2.1 g/dL (3.5-5.0); Alkaline Phosphatase 86 U/L (38-126); Anion Gap 7 mmol/L; Blood Urea Nitrogen 22 mg/dL (9-20); Calcium 7.4 mg/dL (8.4-10.2); Carbon Dioxide 34 mmol/L (22-30); Chloride 103 mmol/L (98-107); Glucose 152 mg/dL (74-99); Magnesium 1.8 mg/dL (1.6-2.3); Non-African American GFR(CKD) >90 (>60 ml/min/1.73 sqM); Potassium 3.4 mmol/L (3.5-5.1); Sodium 144 mmol/L (137-145); Total Protein 5.7 g/dL (6.3-8.2)
[2024-09-09] MEDS: POTASSIUM CHLORIDE 20 MEQ in WATER FOR INJECTION 1 100ML.BAG IVPB SCH (06:57)
--- NOTE | 2024-09-09 08:00 | P.PN ---
Subjective 49-year-old patient, History of paraplegia, home vent at night, tracheostomy multiple admissions to the ICU for recurrent pneumonia. Patient's previous bronchial cultures been positive for Pseudomonas. He was discharged recently on IV cefepime. Also has a history of Crohn's disease with previous colectomy diverting ileostomy. History of DVT for which patient is on subcu Lovenox. Also had drug-resistant MRSA Pseudomonas. Patient currently does not have areas significant trach secretions. He has continues TPN. Has a right BKA. He does have slight movement in the right hand. Able to follow commands by nodding his head. 09/06/2024 Patient is seen and evaluated in ICU; remains on mechanical ventilator, actually his home ventilator, with settings of volume assist-control, rate 20, tidal volume 450, FiO2 45%, PEEP of 5. - patient has been refusing blood; no ABGs to. He is getting lactated Ringer's at 50 cc an hour, TPN at 65 cc an hour. - patient remains on the same antibiotics. - Labs reviewed which reveal white count 5.21, hemoglobin 7.9, hematocrit 27.5, and platelet count 64,000. Sodium 141, potassium 3.5, chlorides 102, CO2 32, BUN 25, and creatinine 0.35. Glucose is 152. Calcium is 8. Albumin is 2.1. -Chest x-ray is largely unchanged. Critical care managing mechanical ventilation; recommending to add scopolamine patch for increased secretion -Patient remains on Avycaz and tobramycin - Continue with current TPN 09/07 Patient remains in the ICU lethargic. He is s/p tracheostomy Overnight he was more hypoxic they have to increase PEEP to 8. Also has a lot of secretions when needed for secretions suctioning to try to become apneic per Staff. Patient currently receiving Avycaz and tobramycin. on TPN also 09/08 Patient remains in the ICU awake and alert status post tracheostomy. He has contractures of both upper and lower extremities He is complaining from pain in his lungs. He is status post flexible bronchoscopy and bronchoalveolar lavage yesterday. He has previous sputum culture positive for Pseudomonas currently covered with ceftazidime and tobramycin. He is also on Lovenox 90 mg 09/09 Patient still in the ICU on mechanical ventilation via tracheostomy. PEEP is 8.0 as is yesterday Also he spiked little fever to 100.7. IV vancomycin is added to tobramycin and ceftazidime He is getting also bronchoscopy follow-up culture results Objective - Vital Signs Vital signs: Vital Signs Temp 98.3 F 09/09/24 04:00 Pulse 79 09/09/24 07:00 Resp 24 09/09/24 07:00 BP 136/116 09/09/24 07:00 Pulse Ox 96 09/09/24 07:00 FiO2 50 09/09/24 07:30 Intake & Output 09/08/24 09/09/24 09/09/24 18:59 06:59 18:59 Intake Total 2489 1442 125 Output Total 2200 150 0 Balance 289 1292 125 Weight 106.7 kg Intake: IV 1009 662 60 0.9 120 120 10 Fat Emulsion 20% 250 ml 189 42 In Empty Bag 1 bag @ 21 mls/hr IV Q72H [facility] Rx#: [id number] Lactated Ringers 1,000 ml 600 500 50 @ 50 mls/hr IV .Q20H [facility] Rx#:[id number] Tobramycin Sulfate 500 mg 100 In Sodium Chloride 0.9% 100 ml @ 112.5 mls/hr IVPB Q24H [facility] Rx#: [id number] Intake, IV Titration 700 Amount ACETAMINOPHEN IV (For NPO 100 ) 1,000 mg In Empty Bag 1 bag @ 400 mls/hr IVPB Q6HR [facility] Rx#:[id number] Magnesium Sulfate-D5w Pmx 100 1 gm In Dextrose/Water 1 100ml.bag @ 100 mls/hr IVPB ONCE [facility] Rx#: [id number] Vancomycin 1,500 mg In 500 Sodium Chloride 0.9% 500 ml 500 ml @ 167 mls/hr IVPB Q16H [facility] Rx#: [id number] TPN/PPN 780 780 65 Mvi, Adult No.4 with Vit 780 780 65 K 10 ml Trace (Conc-1Ml/ Dose) 1 ml Magnesium Sulfate gm 1 gm Sodium Phosphate 30 mmol Potassium Chloride 58 meq Sodium Acetate 90 meq Calcium Gluconate 0.5 gm In Amino Acids 5 %/ Dextrose 20 % 1,000 ml @ 65 mls/hr IV .BY DURATION [facility] Rx#:[id number] Output: Drainage 750 Medial Abdomen 750 Urine 1450 150 0 Other: Voiding Method External Catheter External Catheter # Voids 1 1 - Exam GENERAL: The patient is alert and oriented x3, not in any acute distress. Well developed, well nourished. HEENT: Pupils are round and equally reacting to light. EOMI. No scleral icterus. No conjunctival pallor. Normocephalic, atraumatic. No pharyngeal erythema. No thyromegaly. CARDIOVASCULAR: S1 and S2 present. No murmurs, rubs, or gallops. -PULMONARY: Chest is clear to auscultation, no wheezing , no crackles. S/p tracheostomy -ABDOMEN: Soft, nontender, nondistended, normoactive bowel sounds. No palpable organomegaly. S/p PEG tube MUSCULOSKELETAL: No joint swelling or deformity. -EXTREMITIES: No cyanosis, clubbing, or pedal edema. Status post right BKA NEUROLOGICAL: Gross neurological examination did not reveal any focal deficits. SKIN: No rashes. no petechiae. - Labs CBC & Chem 7: 09/09/24 05:08 09/09/24 05:08 Labs: Abnormal Lab Results - Last 24 Hours (Table) 09/09/24 09/09/24 Range/Units 05:08 05:08 RBC 3.11 L (4.40-5.60) 10*6/uL Hgb 7.3 L (13.0-17.0) g/dL Hct 25.4 L (39.6-50.0) % MCH 23.5 L (27.0-32.0) pg MCHC 28.7 L (32.0-37.0) g/dL Plt Count 72 L (140-440) 10*3/uL Immature Plt Fraction 14.5 H (1.1-6.1) % Potassium 3.4 L (3.5-5.1) mmol/L Carbon Dioxide 34 H (22-30) mmol/L BUN 22 H (9-20) mg/dL Creatinine 0.38 L (0.66-1.25) mg/dL Glucose 152 H (74-99) mg/dL Calcium 7.4 L (8.4-10.2) mg/dL Total Bilirubin 1.4 H (0.2-1.3) mg/dL Total Protein 5.7 L (6.3-8.2) g/dL Albumin 2.1 L (3.5-5.0) g/dL Assessment and Plan Assessment: - basal pneumonia. Previous admission sputum was positive for Pseudomonas aeruginosa-: Clinically responding on IV Avycaz-.. IV tobramycin . No fever close to 48 hours Being followed by pulmonary, and ID -Loose stools negative for C. difficile Will add Metamucil to bulk up the stool - Septic shock: Slow to response Patient on Levophed. Vasopressin - Chronic hypoxic and hypercapnic respiratory failure, vent dependent at night at home - Tracheostomy with trach collar - Normocytic anemia of chronic disease and hospital-acquired anemia from blood draws Follow H&H - Thrombocytopenia likely from sepsis Follow - Right below-knee amputation - Chronic quadriparesis. Including left foot drop. Left arm contracture. Some right hand contracture. Some movement in the right arm - Crohn's disease with double barrel ostomy bag in place since 09/2021 - TPN - Full code Plan: Continue with antibiotics, currently on Avycaz and tobramycin. After vancomycin was added Continue with TPN Continue with Ringer lactate Patient on therapeutic dose of Lovenox Several consultants on the case including pulmonary and infectious disease team Labs and medication were reviewed.. Continue same treatment. Continue with symptomatic treatment. Resume home medication. Monitor labs and vitals. DVT and GI prophylaxis. Further recommendations as per clinical course of the patient DVT prophylaxis: Subcutaneous Lovenox GI Prophylaxis: Protonix Prognosis is guarded
--- NOTE | 2024-09-09 08:10 | XR ---
EXAMINATION TYPE: XR chest 1V portable DATE OF EXAM: 09/09/2024 6:01 AM COMPARISON: 09/08/2024 CLINICAL INDICATION: Male, 49 years old with history of mechanical ventilation, difficulty breathing TECHNIQUE: XR chest 1V portable view(s) obtained. FINDINGS: The heart size is normal. The pulmonary vasculature is prominent. Increased lung markings at the lung bases. There is silhouetting the diaphragms. Tracheostomy tube is in the midline. Left central venous catheter tip is in the distal superior vena cava region. IMPRESSION: 1. Diffuse infiltrates greater at the bases. Correlate for pneumonia. [facility], , 09/09/2024 8:08 AM
[2024-09-09] MEDS: FUROSEMIDE 10 MG/ML 2 ML VIAL IV SCH (09:56)
[2024-09-09] MEDS: MAGNESIUM SULFATE-D5W PMX 1 GM in DEXTROSE/WATER 1 100ML.BAG IVPB ONE (09:57)
--- NOTE | 2024-09-09 12:55 | P.PN ---
Subjective Progress Note Date: 09/09/24 The patient is a 49-year-old male who is currently admitted to the hospital with sepsis secondary to Pseudomonas pneumonia. Patient has a history of chronic hypoxemic and hypercapnic respiratory failure, where he is vent dependent. Cardiology has been consulted for bradycardia. When patient becomes hypoxic, patient becomes bradycardic in the 30s to 40s. Yesterday the patient had several episodes of third-degree heart block, lasting greater than 6 seconds. According to nursing staff these longer episodes were after the patient was giving propofol during a bronchoscopy. Overnight the patient did have several additional episodes of bradycardia down into the 40s, however these are all associated with hypoxia. GENERAL: Well-appearing, well-nourished and in no acute distress. NECK: Supple without JVD or thyromegaly. LUNGS: Breath sounds coarse to auscultation bilaterally. Respiration equal and unlabored. HEART: Regular rate and rhythm without murmurs, rubs or gallops. S1 and S2 heard. EXTREMITIES: +2 left lower extremity pitting edema. Right AKA TELEMETRY: Sinus rhythm overnight LABS: WBC 4.6, hemoglobin 7.3, hematocrit 25.5, platelet 72, sodium 144, potassium 3.4, BUN 22, creatinine 2.3, AST 27, ALT 30 IMPRESSION: Third-degree heart block, in the setting of hypoxia Septic shock, secondary to Pseudomonas pneumonia Chronic hypoxemic and hypercapnic respiratory failure, vent dependent Previous history of asystole/cardiac arrest in 2021 PLAN: Continue supportive treatment Avoid AV paulina blocking agents No further recommendations from the cardiac standpoint I am dictating on behalf of Dr Lawson Resendez's history/physical and assessment/plan. Objective - Vital Signs Vital signs: Vital Signs Temp 98.7 F 09/09/24 12:00 Pulse 81 09/09/24 12:00 Resp 24 09/09/24 12:00 BP 107/53 09/09/24 12:00 Pulse Ox 100 09/09/24 12:00 FiO2 100 09/09/24 12:00 Intake & Output 09/08/24 09/09/24 09/09/24 18:59 06:59 18:59 Intake Total 3591 1442 1570 Output Total 2200 150 1850 Balance 1391 1292 -280 Weight 106.7 kg 106.7 kg Intake: IV 1009 662 360 0.9 120 120 60 Fat Emulsion 20% 250 ml 189 42 In Empty Bag 1 bag @ 21 mls/hr IV Q72H [facility] Rx#: [id number] Lactated Ringers 1,000 ml 600 500 300 @ 50 mls/hr IV .Q20H [facility] Rx#:[id number] Tobramycin Sulfate 500 mg 100 In Sodium Chloride 0.9% 100 ml @ 112.5 mls/hr IVPB Q24H [facility] Rx#: [id number] Intake, IV Titration 1802 800 Amount ACETAMINOPHEN IV (For NPO 100 ) 1,000 mg In Empty Bag 1 bag @ 400 mls/hr IVPB Q6HR PRN Rx#:[id number] Magnesium Sulfate-D5w Pmx 100 1 gm In Dextrose/Water 1 100ml.bag @ 100 mls/hr IVPB ONCE ONE Rx#: [id number] Magnesium Sulfate-D5w Pmx 100 1 gm In Dextrose/Water 1 100ml.bag @ 100 mls/hr IVPB ONCE ONE Rx#: [id number] Mvi, Adult No.4 with Vit 1102 K 10 ml Trace (Conc-1Ml/ Dose) 1 ml Magnesium Sulfate gm 1 gm Sodium Phosphate 30 mmol Potassium Chloride 58 meq Sodium Acetate 90 meq Calcium Gluconate 0.5 gm In Amino Acids 5 %/ Dextrose 20 % 1,000 ml @ 65 mls/hr IV .BY DURATION [facility] Rx#:[id number] Potassium Chloride 10 meq 200 In Water For Injection 1 100ml.bag @ 100 mls/hr IVPB Q1HR [facility] Rx#: [id number] Vancomycin 1,500 mg In 500 500 Sodium Chloride 0.9% 500 ml 500 ml @ 167 mls/hr IVPB Q16H [facility] Rx#: [id number] TPN/PPN 780 780 410 Mvi, Adult No.4 with Vit 780 780 410 K 10 ml Trace (Conc-1Ml/ Dose) 1 ml Magnesium Sulfate gm 1 gm Sodium Phosphate 30 mmol Potassium Chloride 58 meq Sodium Acetate 90 meq Calcium Gluconate 0.5 gm In Amino Acids 5 %/ Dextrose 20 % 1,000 ml @ 65 mls/hr IV .BY DURATION [facility] Rx#:[id number] Output: Drainage 750 1000 Medial Abdomen 750 1000 Urine 1450 150 850 Other: Voiding Method External Catheter External Catheter External Catheter # Voids 1 1 - Labs CBC & Chem 7: 09/09/24 05:08 09/09/24 05:08 Labs: Abnormal Lab Results - Last 24 Hours (Table) 09/09/24 09/09/24 Range/Units 05:08 05:08 RBC 3.11 L (4.40-5.60) 10*6/uL Hgb 7.3 L (13.0-17.0) g/dL Hct 25.4 L (39.6-50.0) % MCH 23.5 L (27.0-32.0) pg MCHC 28.7 L (32.0-37.0) g/dL Plt Count 72 L (140-440) 10*3/uL Immature Plt Fraction 14.5 H (1.1-6.1) % Potassium 3.4 L (3.5-5.1) mmol/L Carbon Dioxide 34 H (22-30) mmol/L BUN 22 H (9-20) mg/dL Creatinine 0.38 L (0.66-1.25) mg/dL Glucose 152 H (74-99) mg/dL Calcium 7.4 L (8.4-10.2) mg/dL Total Bilirubin 1.4 H (0.2-1.3) mg/dL Total Protein 5.7 L (6.3-8.2) g/dL Albumin 2.1 L (3.5-5.0) g/dL
--- NOTE | 2024-09-09 16:40 | P.PN ---
Subjective Progress Note Date: 09/09/24 This is a 49-year-old white male familiar to my service, history of paraplegia, home vent dependent, history of tracheostomy, patient had multiple admissions to the ICU for recurrent episodes of pneumonia and respiratory failure requiring ventilatory support. On his last admission patient was eventually discharged home on a home ventilator, and this was back on 08/04/2024. Patient was discharged home with a PICC line, patient was in the ER yesterday on 08/28 for abnormal labs mostly low potassium and low sodium discharged home however he came back today complaining of shortness of breath, has been ventilator dependent all along. Chest x-ray showed basically bibasilar opacities/atelectasis, doubt pneumonia, the findings in the left lower lobe are chronic. Patient did have previous history of pneumonia involving the left lower lobe and he had multiple bronchoscopies in the past. Bronchial cultures and sputum cultures have been positive in the past for mostly Pseudomonas aeruginosa. Patient was seen in the ER today, and he is already on cefepime for empiric coverage for potential left lower lobe pneumonia, patient had abnormal electrolytes with relatively low sodium low potassium, no leukocytosis, normal renal profile, blood pressure was soft, and he was given fluid boluses. Lactic acid was 2.1, D-dimer is normal, patient was admitted, and this consult was initiated. 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 Patient was seen today on 08/30/2024, patient continues to have intermittent episodes of fever with Tmax of 102, patient required norepinephrine and he remains on norepinephrine at 0.04 mcg/kg/min remains on LR at 130 cc/h remains on his home ventilator at tidal volume of 450 rate of 20 FiO2 45% and PEEP of 5. Seems comfortable, not in distress, his WBC is 3.5 hemoglobin 10.0 electrolytes are normal renal profile is normal potassium is borderline low. Patient remains on cefepime, vancomycin was added because of his previous history of MRSA, and is on cefepime for previous history of pseudomonal infection and now that the patient may be septic it is more of a reason to broaden the spectrum of antibiotics coverage with cefepime and vancomycin. Sputum cultures and blood cultures are pending. Patient does have history of pseudomonal and history of MRSA infections, and I discontinued his Zithromax today replace Zithromax with vancomycin. Viral screen is negative Legionella antigen is negative. Chest x- ray is relatively unchanged continues to show bibasilar opacities atelectasi s/pneumonia. Progress note dated August 31, 2024. The patient is seen today in room 252. The patient was admitted a couple days ago, to the intensive care unit. The patient is currently on mechanical ventilator, actually his home ventilator. He is on volume assist-control, rate 20, tidal volume 450, FiO2 45% PEEP of 5. The patient is getting lactated Ringer's at 130 cc an hour, TPN at 91 cc an hour, norepinephrine at 8 mcg/min. Doppler of the left upper extremity was negative. He continues on Zerbaxa, and vancomycin. We will check a procalcitonin level. Cultures thus far are negative. He does have a previous history of methicillin-resistant Staph aureus infection, and pseudomonal infections. White count was 2.21, hemoglobin 9.3, hematocrit 32, platelet count 1 61,000. D-dimer was 5.78. Sodium 132, potassium 4.3, chlorides 106, CO2 21, BUN 18, creatinine 0.28. Glucose was 141. Calcium 7.8. C. difficile study was negative. Urine Legionella antigen was negative. Microbiologic studies are currently negative. Chest x-ray shows bibasilar airspace opacities, possibly consistent with pneumonia. 09/01/24 - The patient is seen today in room 252. Admitted to the hospital and the intensive care unit on 08/29/2024. The patient is currently on mechanical ventilator, his one from home. He is on volume assist control, rate of 20, tidal volume of 450, FiO2 45% and PEEP of 5. He currently has LR running at 50 cc/h, TPN at 91 cc/h, Zerbaxa and tobramycin. Chest Xray done this morning showed stable airspace opacities. Cultures are positive for pseudomonas aeruginosa, awaiting sensitivities. WBCs 2.69, Hgb 8.9, Hct 31.5, PLT 153, Na 135, K 3.4, Cl 109, HCO3 19, BUN 22, Cr 0.34, Phos 2.4. 09/02/24 - He is seen today in room 252. Admitted to the hospital and ICU on 08/29/24. He continues on mechanical ventilator, his one from home. He remaines on volume assist control, rate of 20, tidal volume of 450, FiO2 45% and PEEP of 5. He continues to have LR running at 50 cc/h, TPN at 91 cc/h, norepinephrine at 0.13 mcg/kg/min, Zebraxa and Tobramycin. Chest XRay this morning showed stable airspace opacities. Continue to await sensitivity of pseudomonas sputum culture. Lab work shows WBCs 3.64, Hgb 9.7, Hct 33.5, PLT 130, Na 133, K 3.9, bicarb 21, BUN 23, Cr 0.36, Ca 7.8, Mg 2.4, Albumin 2.3. 09/03/24 - He is seen in room 252. Admitted to the hospital and ICU on 08/29/24. He continues on mechanical ventilator, his one from home. He remaines on volume assist control, rate of 20, tidal volume of 450, FiO2 45% and PEEP of 5. He continues to have LR running at 50 cc/h, TPN at 91 cc/h, norepinephrine at 0.24 mcg/kg/min, Avycaz and Tobramycin. Zebraxa was discontinued as there was no reported sensitivity to it. Lab work shows WBCs 9.40, Hgb 8.8, Hct 30.6, PLT 100, Na 130, K 3.6, bicarb 23, BUN 25, Cr 0.51, Ca 7.8, Ionized Ca 4.6, Phos 3.3, Mg 2.1, TSH 2.710 and random cortisol 13.1. 09/04/24 - He is seen in room 252. Admitted to the hospital and ICU on 08/29/24. He continues on mechanical ventilator, his one from home. He remaines on volume assist control, rate of 20, tidal volume of 450, FiO2 45% and PEEP of 5. He continues to have LR running at 50 cc/h, TPN at 91 cc/h, norepinephrine at 0.24 mcg/kg/min, Avycaz and Tobramycin. Lab work shows sodium 133, potassium 3.5, bicarb 24, BUN 27, creatinine 0.47, calcium 7.9, ionized calcium 4.6, magnesium 1.9, phosphorus 3.0, total bilirubin 1.7, AST 57, ALT 45, alkaline phosphatase 99. Progress note dated September 05, 2024. 49-year-old male well-known to our service. He is seen today in room 252. He continues on volume assist-control, rate 20, tidal 450, FiO2 45%, PEEP of 5. The patient has refused blood gases. Currently, he is getting TPN at 65 cc an hour, norepinephrine at 1 mcg/min, LR at 50 cc/h. Clinically, the patient is doing well. His chest x-ray remains about the same. Yesterday he was on a hig her dose of norepinephrine, and also was on vasopressin. Both have been weaned off. Current labs include a sodium 136, potassium 4.1, chlorides 101, CO2 28, BUN 30, creatinine 0.37. Glucose 153. Albumin is 2.2. Previous sputum, from August 29 with positive for Pseudomonas aeruginosa. Chest x-ray is largely unchanged. Progress note dated September 06, 2024. 49-year-old male again seen today in the intensive care unit, room 252. He remains on mechanical ventilator, actually his home ventilator, with settings of volume assist-control, rate 20, tidal volume 450, FiO2 45%, PEEP of 5. No blood gases today. The patient has been refusing. He is getting lactated Ringer's at 50 cc an hour, TPN at 65 cc an hour. He continues on the same antibiotics. White count 5.21, hemoglobin 7.9, hematocrit 27.5, and platelet count 64,000. Sodium 141, potassium 3.5, chlorides 102, CO2 32, BUN 25, and creatinine 0.35. Glucose is 152. Calcium is 8. Albumin is 2.1. Chest x-ray is largely unchanged. 09/07/2024, the patient remains on a mechanical ventilator. The patient is having excessive respiratory secretions. Attempts to suction this patient has failed as the secretions are quite thick and the patient has had episodes of bradycardia while suctioning. Remains on TPN at 65 cc an hour and lactated Ringer at 50 cc an hour. Remains on assist-control mode mechanical ventilation at rate of 20, tidal volume of 450, FiO2 of 100% with a PEEP of 8. Patient has refused to have an arterial line. The patient has refused blood gases. Urine output is adequate. No hypotension. He has a double-lumen catheter in his left chest and the left forearm IV line.He is afebrile. He continues to have multidrug-resistant Pseudomonas in his sputum. The patient remains on ceftazidime/avibactam per IDs recommendations. He is also on IV tobramycin. Remains on stress dose hydrocortisone. Blood work shows a white cell count of 6.9, hemoglobin 7.9 and a platelet count of 90. BUN is 24 with a creatinine of 0.33. Sodium is 143 and a potassium level of 3.7. Bicarb level is at 33. Output from the ileostomy bag is high and the net fluid balance is +1.2 L over the past 24 hours. Airway pressures on the mechanical ventilator are elevated with an elevated peak airway pressure around 36 consistent with excessive respiratory secretions and mucous plugs. Chest x-ray shows atelectatic changes infiltrates in lung bases along with some scattered hazy bilateral pulmonary infiltrates. 09/08/2024, the patient is being seen for a follow-up. On today's evaluation, the patient is awake on no sedation. His chest x-ray showing worsening bilateral pulmonary filtrates. Running low-grade fever. A bronchoscopy in the BAL was done yesterday and the results are still pending for now. He remains on assist-control mode at rate of 20, tidal volume of 450, FiO2 of 60% with a PEEP of 8. He remains on lactated Ringer at rate of 50 cc an hour and TPN at rate of 65 cc an hour. He remains on IV Lasix. He remains on ceftazidime/avibactam regarding his multidrug-resistant Pseudomonas. He is also on tobramycin. The white cell count is 6 with a hemoglobin 7.7 and platelet count of 77. Sodium is at 143, BUN 24 with a creatinine of 0.2. Serum bicarb is at 34. LFTs are within normal limits. The patient had no blood cares for today. He has refused blood gases. On a separate note, cardiology was consulted regarding the episodes of bradycardia that the patient is encountering. Upon sectioning, the patient is having episodes of cardiac block, likely third-degree AV block that last around 5 to 8 seconds. Patient was taken off the scopolamine patch. On 09/09/2024, the patient remains on a mechanical ventilator. He is complaining of shortness of breath even while being on the mechanical ventilator. Repeat chest x-ray was done today and the patient has developed diffuse infiltrates bilaterally greater in the lung bases and there is interval worsening in the chest x-ray findings. The bronchoalveolar lavage that was obtained earlier on 09/07/2024 showed Pseudomonas aeruginosa and corynebacterium. The patient remains on ceftazidime avibactam and tobramycin. Vancomycin was also added. He is running a low-grade fever with a Tmax of 100.7. He remains on assist-control mode mechanical ventilation at rate of 20, tidal volume of 450, FiO2 of 60% with a PEEP of 8. The patient did not have a blood gas today. Fluid balance is +2.6 L over the past 24 hours. He is currently on IV Lasix 20 mg IV push every 8 hours. The patient is also on TPN at rate of 65 cc an hour and lactated Ringer at rate of 50 cc an hour. The white cell count is 4.6 with a heme of 7.3 and a platelet count of 72. Sodium is at 144, bicarb is at 34, BUN 22 with a creatinine of 0.38. Chloride is 103. Calcium levels at 7.4, phosphorus 3.6, LFTs are normal. Albumin levels at 2.1. Arousable, able to communicate. No significant cardiac arrhythmias over the past 24 hours. Objective - Vital Signs Vital signs: Vital Signs Temp 97.3 F L 09/09/24 08:00 Pulse 90 09/09/24 09:30 Resp 30 H 09/09/24 09:30 BP 128/60 09/09/24 09:30 Pulse Ox 88 L 09/09/24 09:30 FiO2 60 09/09/24 09:38 Intake & Output 09/08/24 09/09/24 09/09/24 18:59 06:59 18:59 Intake Total 3591 1442 300 Output Total 2200 150 50 Balance 1391 1292 250 Weight 106.7 kg Intake: IV 1009 662 70 0.9 120 120 20 Fat Emulsion 20% 250 ml 189 42 In Empty Bag 1 bag @ 21 mls/hr IV Q72H [facility] Rx#: [id number] Lactated Ringers 1,000 ml 600 500 50 @ 50 mls/hr IV .Q20H [facility] Rx#:[id number] Tobramycin Sulfate 500 mg 100 In Sodium Chloride 0.9% 100 ml @ 112.5 mls/hr IVPB Q24H [facility] Rx#: [id number] Intake, IV Titration 1802 100 Amount ACETAMINOPHEN IV (For NPO 100 ) 1,000 mg In Empty Bag 1 bag @ 400 mls/hr IVPB Q6HR [facility] Rx#:[id number] Magnesium Sulfate-D5w Pmx 100 1 gm In Dextrose/Water 1 100ml.bag @ 100 mls/hr IVPB ONCE [facility] Rx#: [id number] Mvi, Adult No.4 with Vit 1102 K 10 ml Trace (Conc-1Ml/ Dose) 1 ml Magnesium Sulfate gm 1 gm Sodium Phosphate 30 mmol Potassium Chloride 58 meq Sodium Acetate 90 meq Calcium Gluconate 0.5 gm In Amino Acids 5 %/ Dextrose 20 % 1,000 ml @ 65 mls/hr IV .BY DURATION [facility] Rx#:[id number] Potassium Chloride 10 meq 100 In Water For Injection 1 100ml.bag @ 100 mls/hr IVPB Q1HR [facility] Rx#: [id number] Vancomycin 1,500 mg In 500 Sodium Chloride 0.9% 500 ml 500 ml @ 167 mls/hr IVPB Q16H [facility] Rx#: [id number] TPN/PPN 780 780 130 Mvi, Adult No.4 with Vit 780 780 130 K 10 ml Trace (Conc-1Ml/ Dose) 1 ml Magnesium Sulfate gm 1 gm Sodium Phosphate 30 mmol Potassium Chloride 58 meq Sodium Acetate 90 meq Calcium Gluconate 0.5 gm In Amino Acids 5 %/ Dextrose 20 % 1,000 ml @ 65 mls/hr IV .BY DURATION [facility] Rx#:[id number] Output: Drainage 750 Medial Abdomen 750 Urine 1450 150 50 Other: Voiding Method External Catheter External Catheter # Voids 1 1 - Exam No acute distress, currently connected to the ventilator. He has a tracheostomy tube in place. The patient has a #6 [address] tracheostomy tube in place. Lethargic, follows simple commands. Profoundly weak in all 4 extremities. HEENT examination is grossly unremarkable. Mucous membranes are moist. No oral lesions. Neck supple. Full range of motion. No adenopathy thyromegaly or neck vein distention. Cardiovascular examination reveals regular rhythm rate. S1-S2 normal. No S3 or S4. No discernible murmur noted. Lungs reveal clear breath sounds. Breath sounds are diminished bilaterally and scattered rhonchi heard throughout the lung craft bilaterally. Tracheostomy tube in place. Abdomen reveals an enterocutaneous fistula, normal bowel sounds. No tenderness. No masses. Extremities are intact. No cyanosis clubbing and there is edema in his left lower extremity and upper extremities bilaterally. The patient has a below-knee amputation his right lower extremity. Skin is without rash or lesion. Neurologic examination is brief but nonfocal. He does have significant muscle atrophy, and contractures. He has a right below the knee amputation. Generalized profound weakness. Weak cough. Weak motor functions. - Labs CBC & Chem 7: 09/09/24 05:08 09/09/24 05:08 Labs: Abnormal Lab Results - Last 24 Hours (Table) 09/09/24 09/09/24 Range/Units 05:08 05:08 RBC 3.11 L (4.40-5.60) 10*6/uL Hgb 7.3 L (13.0-17.0) g/dL Hct 25.4 L (39.6-50.0) % MCH 23.5 L (27.0-32.0) pg MCHC 28.7 L (32.0-37.0) g/dL Plt Count 72 L (140-440) 10*3/uL Immature Plt Fraction 14.5 H (1.1-6.1) % Potassium 3.4 L (3.5-5.1) mmol/L Carbon Dioxide 34 H (22-30) mmol/L BUN 22 H (9-20) mg/dL Creatinine 0.38 L (0.66-1.25) mg/dL Glucose 152 H (74-99) mg/dL Calcium 7.4 L (8.4-10.2) mg/dL Total Bilirubin 1.4 H (0.2-1.3) mg/dL Total Protein 5.7 L (6.3-8.2) g/dL Albumin 2.1 L (3.5-5.0) g/dL Assessment and Plan Plan: Septic shock, secondary to Pseudomonas pneumonia, hemodynamically stable and the patient is currently on no pressors Bilateral pneumonia with multidrug-resistant Pseudomonas aeruginosa. The patient is currently on ceftazidime/tazobactam and tobramycin combination. Repeat bronchoscopy on 09/07/2024 shows a positive Pseudomonas aeruginosa and corynebacterium in the BAL collected from the right lower lobe. The patient remains on the same antibiotic coverage and vancomycin was also added due to worsening of the diffuse bilateral pulmonary filtrates as noted on today's chest x-ray. At the same time, the patient continues to have increased shortness of breath. Continues to have episodes of hypoxemia while being on a mechanical ventilator. Low-grade fever Chronic hypoxemic and hypercapnic respiratory failure, ventilator dependent, on a home ventilator, S/P tracheostomy. The patient failed his home ventilator and the patient is currently on a mechanical ventilator assist-control mode. Chest x-ray was noted. No blood Available. Increase the PEEP up to 10. Keep the FiO2 at 60% History of severe tracheal stenosis, S/P tracheostomy. 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 History of DVT. History of CVA. History of right below-knee amputation. Previous history of asystole/cardiac arrest, 2021. History of Crohn's disease, S/P enterocutaneous fistula, diverting ileostomy. The patient remains on TPN for nutritional support. Plan: Continue ventilator support Keep the FiO2 at 60%, increase the PEEP up to 10 Bronchoscopy was performed on 09/07/2024 and results are positive for Pseudomonas aeruginosa and corynebacterium in the right lower lobe bronchoalveolar lavage Unable to obtain blood gases He continues on Avycaz, and tobramycin and vancomycin as the patient is having low-grade fever Continues on TPN at 65 cc an hour, Lactated Ringer's at 50 cc an hour. Lovenox 90 mg SQ every 8 hours Stress dose hydrocortisone IV Protonix Monitor cardiac rhythm. No significant episodes of bradycardia over the past 24 hours. echocardiogram from previous visits was normal. Cardiology will be consulted regarding the episodic AV block that the patient is encountering. Current cardiac rhythm is sinus and the patient is hemodynamically stable. Prognosis remains extremely poor due to above-mentioned comorbidities. Will continue to follow and make further recommendation based on his progress. This evaluation was done at 35 minutes. Time with Patient: Greater than 30
--- NOTE | 2024-09-09 20:12 | XR ---
EXAMINATION TYPE: XR chest 1V portable DATE OF EXAM: 09/09/2024 6:54 PM COMPARISON: 09/09/2024 CLINICAL INDICATION: Male, 49 years old with history of decreased breath sounds on left side, TECHNIQUE: XR chest 1V portable view(s) obtained. FINDINGS: The heart size is normal. The pulmonary vasculature is normal. Infiltrate is at the left base. Mild diffuse increased lung markings are on the right. No pneumothor ax evident. Left-sided port is present with the tip in the proximal right atrium. Tracheostomy tube i s in the midline. IMPRESSION: 1. Left lower lobe infiltrate and/or pleural effusion. 2. Lines and catheters discussed above [facility], , 09/09/2024 8:10 PM
--- NOTE | 2024-09-09 22:08 | P.PN ---
Subjective Progress Note Date: 09/09/24 Principal diagnosis: Reason for follow-up is sepsis and pneumonia Patient is a 49-year-old male with a past medical history significant for CVA TIA DVT pneumonia history of complicated Crohn's disease in this patient who did have multiple abdominal surgeries patient also have a tracheostomy has been brought to the hospital with Generalized weakness did have a fever c oncerning for pneumonia on today's evaluation that is 09/09/2024,the patient has been afebrile the p atient remains to be debated on the vent FiO2 currently 70% patient been complaining of feeling congested wanting to be suctioned but no significant secretions being suctioned on as reported by the mother at the bedside he is hemodynamically stable not requiring any pressor support. Patient did have a white count of 4.63, creatinine 0.38,BAL washing cultures growing Pseudomonas aeruginosa and corynebacterium stratum Objective - Vital Signs Vital signs: Vital Signs Temp 98.7 F 09/09/24 12:00 Pulse 81 09/09/24 12:00 Resp 24 09/09/24 12:00 BP 107/53 09/09/24 12:00 Pulse Ox 100 09/09/24 12:00 FiO2 80 09/09/24 13:04 Intake & Output 09/08/24 09/09/24 09/09/24 18:59 06:59 18:59 Intake Total 3591 1442 1570 Output Total 2200 150 1850 Balance 1391 1292 -280 Weight 106.7 kg 106.7 kg Intake: IV 1009 662 360 0.9 120 120 60 Fat Emulsion 20% 250 ml 189 42 In Empty Bag 1 bag @ 21 mls/hr IV Q72H [facility] Rx#: [id number] Lactated Ringers 1,000 ml 600 500 300 @ 50 mls/hr IV .Q20H [facility] Rx#:[id number] Tobramycin Sulfate 500 mg 100 In Sodium Chloride 0.9% 100 ml @ 112.5 mls/hr IVPB Q24H [facility] Rx#: [id number] Intake, IV Titration 1802 800 Amount ACETAMINOPHEN IV (For NPO 100 ) 1,000 mg In Empty Bag 1 bag @ 400 mls/hr IVPB Q6HR PRN Rx#:[id number] Magnesium Sulfate-D5w Pmx 100 1 gm In Dextrose/Water 1 100ml.bag @ 100 mls/hr IVPB ONCE ONE Rx#: [id number] Magnesium Sulfate-D5w Pmx 100 1 gm In Dextrose/Water 1 100ml.bag @ 100 mls/hr IVPB ONCE ONE Rx#: [id number] Mvi, Adult No.4 with Vit 1102 K 10 ml Trace (Conc-1Ml/ Dose) 1 ml Magnesium Sulfate gm 1 gm Sodium Phosphate 30 mmol Potassium Chloride 58 meq Sodium Acetate 90 meq Calcium Gluconate 0.5 gm In Amino Acids 5 %/ Dextrose 20 % 1,000 ml @ 65 mls/hr IV .BY DURATION [facility] Rx#:[id number] Potassium Chloride 10 meq 200 In Water For Injection 1 100ml.bag @ 100 mls/hr IVPB Q1HR [facility] Rx#: [id number] Vancomycin 1,500 mg In 500 500 Sodium Chloride 0.9% 500 ml 500 ml @ 167 mls/hr IVPB Q16H [facility] Rx#: [id number] TPN/PPN 780 780 410 Mvi, Adult No.4 with Vit 780 780 410 K 10 ml Trace (Conc-1Ml/ Dose) 1 ml Magnesium Sulfate gm 1 gm Sodium Phosphate 30 mmol Potassium Chloride 58 meq Sodium Acetate 90 meq Calcium Gluconate 0.5 gm In Amino Acids 5 %/ Dextrose 20 % 1,000 ml @ 65 mls/hr IV .BY DURATION [facility] Rx#:[id number] Output: Drainage 750 1000 Medial Abdomen 750 1000 Urine 1450 150 850 Other: Voiding Method External Catheter External Catheter External Catheter # Voids 1 1 - Exam GENERAL DESCRIPTION: Middle-age male intubated on the vent RESPIRATORY SYSTEM: Unlabored breathing , decreased breath sounds at bases HEART: S1 S2 regular rate and rhythm , ABDOMEN: Soft , no tenderness EXTREMITIES: Swelling to the leg - Labs CBC & Chem 7: 09/09/24 05:08 09/09/24 05:08 Labs: Abnormal Lab Results - Last 24 Hours (Table) 09/09/24 09/09/24 Range/Units 05:08 05:08 RBC 3.11 L (4.40-5.60) 10*6/uL Hgb 7.3 L (13.0-17.0) g/dL Hct 25.4 L (39.6-50.0) % MCH 23.5 L (27.0-32.0) pg MCHC 28.7 L (32.0-37.0) g/dL Plt Count 72 L (140-440) 10*3/uL Immature Plt Fraction 14.5 H (1.1-6.1) % Potassium 3.4 L (3.5-5.1) mmol/L Carbon Dioxide 34 H (22-30) mmol/L BUN 22 H (9-20) mg/dL Creatinine 0.38 L (0.66-1.25) mg/dL Glucose 152 H (74-99) mg/dL Calcium 7.4 L (8.4-10.2) mg/dL Total Bilirubin 1.4 H (0.2-1.3) mg/dL Total Protein 5.7 L (6.3-8.2) g/dL Albumin 2.1 L (3.5-5.0) g/dL Assessment and Plan (1) Pneumonia Current Visit: Yes Status: Acute Code(s): J18.9 - PNEUMONIA, UNSPECIFIED ORGANISM SNOMED Code(s): 639498023 (2) Sepsis Current Visit: Yes Status: Acute Code(s): A41.9 - SEPSIS, UNSPECIFIED ORGANISM SNOMED Code(s): 12293061 Plan: 1patient is a hospital with sepsis in this patient who did have fever tachycardia elevated lactic acid upon meeting criteria for SIRS/sepsis source likely pneumonia in this patient who did have history of recurrent multidrug- resistant Pseudomonas pneumonia and will need to cover for that pathogen while waiting for the culture to be finalized 2-blood cultures has been negative and sputum culture growing Pseudomonas that is sensitive to Avycaz and tobramycin, Zerbaxa sensitivity not reported 3-patient did have resolution of his fever and his white count has normalized 4patient is status post bronchoscopy lavage results currently growing Pseudomonas and corynebacterium possibly colonizer as the patient not showing any signs of worsening infection with no fever or elevated white count however will discuss with the micro lab about the growth as well as possible sensitivity 5- patient being treated with Avycaz day #8 along with the tobramycin and monitor clinical course closely Dictation was produced using [employer] dictation software. please excuse any grammatical, word or spelling errors. Time with Patient: Less than 30
[2024-09-10 03:55] LABS: Basophils # (A) 0.01 10*3/uL (0.00-0.10); Basophils % (A) 0.2 %; Eosinophils # (A) 0.02 10*3/uL (0.04-0.35); Eosinophils % (A) 0.3 %; HCT 26.4 % (39.6-50.0); HGB 7.4 g/dL (13.0-17.0); Immature Platelet Fraction 16.7 % (1.1-6.1); Lymphocytes # (A) 0.53 10*3/uL (0.90-5.00); Lymphocytes % (A) 8.3 %; MCH 23.2 pg (27.0-32.0); MCHC 28.0 g/dL (32.0-37.0); MCV 82.8 fL (80.0-97.0); Monocytes # (A) 0.26 10*3/uL (0.20-1.00); Monocytes % (A) 4.1 %; Neutrophils # (A) 5.54 10*3/uL (1.80-7.70); Neutrophils % (A) 86.6 %; RBC 3.19 10*6/uL (4.40-5.60); RDW 18.8 % (11.5-14.5); WBC 6.39 10*3/uL (4.50-10.00)
[2024-09-10 04:01] LABS: Platelet Count 73 10*3/uL (140-440)
[2024-09-10 04:08] LABS: ALT 28 U/L (4-49); AST 26 U/L (17-59); African American GFR (CKD) >90 (>60 ml/min/1.73 sqM); Albumin 2.2 g/dL (3.5-5.0); Alkaline Phosphatase 83 U/L (38-126); Anion Gap 4 mmol/L; Blood Urea Nitrogen 21 mg/dL (9-20); Calcium 7.1 mg/dL (8.4-10.2); Carbon Dioxide 40 mmol/L (22-30); Chloride 99 mmol/L (98-107); Glucose 151 mg/dL (74-99); Magnesium 1.6 mg/dL (1.6-2.3); Non-African American GFR(CKD) >90 (>60 ml/min/1.73 sqM); Potassium 3.3 mmol/L (3.5-5.1); Sodium 143 mmol/L (137-145); Total Protein 6.1 g/dL (6.3-8.2)
[2024-09-10] MEDS: POTASSIUM CHLORIDE 20 MEQ in WATER FOR INJECTION 1 100ML.BAG IVPB SCH ×2 (04:44→16:46)
--- NOTE | 2024-09-10 07:01 | XR ---
EXAMINATION TYPE: XR chest 1V portable DATE OF EXAM: 09/10/2024 5:55 AM COMPARISON: 09/09/2024 CLINICAL INDICATION: Male, 49 years old with history of Mechanical ventilation, TECHNIQUE: XR chest 1V portable view(s) obtained. FINDINGS: The heart size is normal. The pulmonary vasculature is normal. Diffuse increased lung markings are present. There is some silhouetting of the diaphragms. Correlate for pulmonary edema. Atypical pneumonia could be considered. Tracheostomy is midline. Left central venous catheter tip is in the superior vena cava right atrial j unction. IMPRESSION: 1. Diffuse increased lung markings greater at the bases. 2. Lines and catheters discussed above [facility], , 09/10/2024 6:58 AM
[2024-09-10] MEDS ORDERED: Magnesium Replacement Protocol 1 EACH MISC MISCELLANE PRN (08:00)
[2024-09-10 08:06] LABS: Glucose,Whole Blood 140 mg/dL (70-110)
[2024-09-10] MEDS: MAGNESIUM SULFATE-D5W PMX 1 GM in DEXTROSE/WATER 1 100ML.BAG IVPB SCH (08:55)
--- NOTE | 2024-09-10 10:36 | P.PN ---
Subjective 49-year-old patient, History of paraplegia, home vent at night, tracheostomy multiple admissions to the ICU for recurrent pneumonia. Patient's previous bronchial cultures been positive for Pseudomonas. He was discharged recently on IV cefepime. Also has a history of Crohn's disease with previous colectomy diverting ileostomy. History of DVT for which patient is on subcu Lovenox. Also had drug-resistant MRSA Pseudomonas. Patient currently does not have areas significant trach secretions. He has continues TPN. Has a right BKA. He does have slight movement in the right hand. Able to follow commands by nodding his head. 09/06/2024 Patient is seen and evaluated in ICU; remains on mechanical ventilator, actually his home ventilator, with settings of volume assist-control, rate 20, tidal volume 450, FiO2 45%, PEEP of 5. - patient has been refusing blood; no ABGs to. He is getting lactated Ringer's at 50 cc an hour, TPN at 65 cc an hour. - patient remains on the same antibiotics. - Labs reviewed which reveal white count 5.21, hemoglobin 7.9, hematocrit 27.5, and platelet count 64,000. Sodium 141, potassium 3.5, chlorides 102, CO2 32, BUN 25, and creatinine 0.35. Glucose is 152. Calcium is 8. Albumin is 2.1. -Chest x-ray is largely unchanged. Critical care managing mechanical ventilation; recommending to add scopolamine patch for increased secretion -Patient remains on Avycaz and tobramycin - Continue with current TPN 09/07 Patient remains in the ICU lethargic. He is s/p tracheostomy Overnight he was more hypoxic they have to increase PEEP to 8. Also has a lot of secretions when needed for secretions suctioning to try to become apneic per Staff. Patient currently receiving Avycaz and tobramycin. on TPN also 09/08 Patient remains in the ICU awake and alert status post tracheostomy. He has contractures of both upper and lower extremities He is complaining from pain in his lungs. He is status post flexible bronchoscopy and bronchoalveolar lavage yesterday. He has previous sputum culture positive for Pseudomonas currently covered with ceftazidime and tobramycin. He is also on Lovenox 90 mg 09/09 Patient still in the ICU on mechanical ventilation via tracheostomy. PEEP is 8.0 as is yesterday Also he spiked little fever to 100.7. IV vancomycin is added to tobramycin and ceftazidime He is getting also bronchoscopy follow-up culture results 09/10 Patient feels clinically the same, he still getting breathing via mechanical ventilation through his tracheostomy with PEEP of 8. Patient feels he is required suctioning through his tracheostomy tube. He denies chest pain or pain anywhere else he can communicate by head signs and gestures. Hemodynamically stable and afebrile hemoglobin 7.4 platelet count 73 Glucose is controlled potassium 3.3 He remains on broad-spectrum antibiotic Rocephin at this time tobramycin and IV vancomycin added yesterday because he had low-grade fever. He is getting TPN. IV fluid Ringer lactate was stopped and patient was started on IV Lasix 20 mg 3 times a day continue with therapeutic dose of Lovenox as well Objective - Vital Signs Vital signs: Vital Signs Temp 99.2 F 09/10/24 04:00 Pulse 87 09/10/24 10:30 Resp 22 09/10/24 10:30 BP 118/54 09/10/24 10:30 Pulse Ox 95 09/10/24 10:30 FiO2 60 09/10/24 08:00 Intake & Output 09/09/24 09/10/24 09/10/24 18:59 06:59 18:59 Intake Total 2380 1620 135 Output Total 2550 1500 250 Balance -170 120 -115 Weight 106.7 kg 104.8 kg Intake: IV 720 720 60 0.9 120 120 10 Ceftazidime/Avibactam 2.5 100 gm In Sodium Chloride 0. 9% 100 ml @ 50 mls/hr IVPB Q8HR [facility] Rx#: [id number] Lactated Ringers 1,000 ml 500 600 50 @ 50 mls/hr IV .Q20H [facility] Rx#:[id number] Intake, IV Titration 800 Amount Magnesium Sulfate-D5w Pmx 100 1 gm In Dextrose/Water 1 100ml.bag @ 100 mls/hr IVPB ONCE ONE Rx#: [id number] Potassium Chloride 10 meq 200 In Water For Injection 1 100ml.bag @ 100 mls/hr IVPB Q1HR [facility] Rx#: [id number] Vancomycin 1,500 mg In 500 Sodium Chloride 0.9% 500 ml 500 ml @ 167 mls/hr IVPB Q16H [facility] Rx#: [id number] TPN/PPN 860 900 75 Mvi, Adult No.4 with Vit 860 900 75 K 10 ml Trace (Conc-1Ml/ Dose) 1 ml Magnesium Sulfate gm 1 gm Sodium Phosphate 30 mmol Potassium Chloride 58 meq Sodium Acetate 90 meq Calcium Gluconate 0.5 gm In Amino Acids 5 %/ Dextrose 20 % 1,000 ml @ 65 mls/hr IV .BY DURATION [facility] Rx#:[id number] Output: Drainage 1000 1500 Medial Abdomen 1000 1500 Urine 1550 0 250 Other: Voiding Method External Catheter External Catheter # Voids 1 1 - Exam GENERAL: The patient is alert and oriented x3, not in any acute distress. Well developed, well nourished. HEENT: Pupils are round and equally reacting to light. EOMI. No scleral icterus. No conjunctival pallor. Normocephalic, atraumatic. No pharyngeal erythema. No thyromegaly. CARDIOVASCULAR: S1 and S2 present. No murmurs, rubs, or gallops. -PULMONARY: Chest is clear to auscultation, no wheezing , no crackles. S/p tracheostomy -ABDOMEN: Soft, nontender, nondistended, normoactive bowel sounds. No palpable organomegaly. S/p PEG tube MUSCULOSKELETAL: No joint swelling or deformity. -EXTREMITIES: No cyanosis, clubbing, or pedal edema. Status post right BKA NEUROLOGICAL: Gross neurological examination did not reveal any focal deficits. SKIN: No rashes. no petechiae. - Labs CBC & Chem 7: 09/10/24 02:58 09/10/24 02:58 Labs: Abnormal Lab Results - Last 24 Hours (Table) 09/10/24 09/10/24 09/10/24 Range/Units 02:58 02:58 08:04 RBC 3.19 L (4.40-5.60) 10*6/uL Hgb 7.4 L (13.0-17.0) g/dL Hct 26.4 L (39.6-50.0) % MCH 23.2 L (27.0-32.0) pg MCHC 28.0 L (32.0-37.0) g/dL Plt Count 73 L (140-440) 10*3/uL Lymphocytes # 0.53 L (0.90-5.00) 10*3/uL Eosinophils # 0.02 L (0.04-0.35) 10*3/uL Immature Plt Fraction 16.7 H (1.1-6.1) % Potassium 3.3 L (3.5-5.1) mmol/L Carbon Dioxide 40 H (22-30) mmol/L BUN 21 H (9-20) mg/dL Creatinine 0.28 L (0.66-1.25) mg/dL Glucose 151 H (74-99) mg/dL POC Glucose (mg/dL) 140 H (70-110) mg/dL Calcium 7.1 L (8.4-10.2) mg/dL Total Bilirubin 1.7 H (0.2-1.3) mg/dL Total Protein 6.1 L (6.3-8.2) g/dL Albumin 2.2 L (3.5-5.0) g/dL Microbiology - Last 24 Hours (Table) 09/07/24 10:40 Gram Stain - Preliminary Bronchial Washings - Random Bronchial Washings Culture - Preliminary Pseudomonas aeruginosa Corynebacterium striatum group Assessment and Plan Assessment: - basal pneumonia. Previous admission sputum was positive for Pseudomonas aeruginosa-: Clinically responding on IV Avycaz-.. IV tobramycin . No fever close to 48 hours Being followed by pulmonary, and ID -Loose stools negative for C. difficile Will add Metamucil to bulk up the stool - Septic shock: Slow to response Patient on Levophed. Vasopressin - Chronic hypoxic and hypercapnic respiratory failure, vent dependent at night at home - Tracheostomy with trach collar - Normocytic anemia of chronic disease and hospital-acquired anemia from blood draws Follow H&H - Thrombocytopenia likely from sepsis Follow - Right below-knee amputation - Chronic quadriparesis. Including left foot drop. Left arm contracture. Some right hand contracture. Some movement in the right arm - Crohn's disease with double barrel ostomy bag in place since 09/2021 - TPN - Full code Plan: Continue with antibiotics, currently on Avycaz and tobramycin. After vancomycin was added Continue with TPN Continue with Ringer lactate Patient on therapeutic dose of Lovenox Several consultants on the case including pulmonary and infectious disease team Labs and medication were reviewed.. Continue same treatment. Continue with symptomatic treatment. Resume home medication. Monitor labs and vitals. DVT and GI prophylaxis. Further recommendations as per clinical course of the patient DVT prophylaxis: Subcutaneous Lovenox GI Prophylaxis: Protonix Prognosis is guarded
--- NOTE | 2024-09-10 15:54 | P.PN ---
Subjective Progress Note Date: 09/10/24 This is a 49-year-old white male familiar to my service, history of paraplegia, home vent dependent, history of tracheostomy, patient had multiple admissions to the ICU for recurrent episodes of pneumonia and respiratory failure requiring ventilatory support. On his last admission patient was eventually discharged home on a home ventilator, and this was back on 08/04/2024. Patient was discharged home with a PICC line, patient was in the ER yesterday on 08/28 for abnormal labs mostly low potassium and low sodium discharged home however he came back today complaining of shortness of breath, has been ventilator dependent all along. Chest x-ray showed basically bibasilar opacities/atelectasis, doubt pneumonia, the findings in the left lower lobe are chronic. Patient did have previous history of pneumonia involving the left lower lobe and he had multiple bronchoscopies in the past. Bronchial cultures and sputum cultures have been positive in the past for mostly Pseudomonas aeruginosa. Patient was seen in the ER today, and he is already on cefepime for empiric coverage for potential left lower lobe pneumonia, patient had abnormal electrolytes with relatively low sodium low potassium, no leukocytosis, normal renal profile, blood pressure was soft, and he was given fluid boluses. Lactic acid was 2.1, D-dimer is normal, patient was admitted, and this consult was initiated. 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 Patient was seen today on 08/30/2024, patient continues to have intermittent episodes of fever with Tmax of 102, patient required norepinephrine and he remains on norepinephrine at 0.04 mcg/kg/min remains on LR at 130 cc/h remains on his home ventilator at tidal volume of 450 rate of 20 FiO2 45% and PEEP of 5. Seems comfortable, not in distress, his WBC is 3.5 hemoglobin 10.0 electrolytes are normal renal profile is normal potassium is borderline low. Patient remains on cefepime, vancomycin was added because of his previous history of MRSA, and is on cefepime for previous history of pseudomonal infection and now that the patient may be septic it is more of a reason to broaden the spectrum of antibiotics coverage with cefepime and vancomycin. Sputum cultures and blood cultures are pending. Patient does have history of pseudomonal and history of MRSA infections, and I discontinued his Zithromax today replace Zithromax with vancomycin. Viral screen is negative Legionella antigen is negative. Chest x- ray is relatively unchanged continues to show bibasilar opacities atelectasi s/pneumonia. Progress note dated August 31, 2024. The patient is seen today in room 252. The patient was admitted a couple days ago, to the intensive care unit. The patient is currently on mechanical ventilator, actually his home ventilator. He is on volume assist-control, rate 20, tidal volume 450, FiO2 45% PEEP of 5. The patient is getting lactated Ringer's at 130 cc an hour, TPN at 91 cc an hour, norepinephrine at 8 mcg/min. Doppler of the left upper extremity was negative. He continues on Zerbaxa, and vancomycin. We will check a procalcitonin level. Cultures thus far are negative. He does have a previous history of methicillin-resistant Staph aureus infection, and pseudomonal infections. White count was 2.21, hemoglobin 9.3, hematocrit 32, platelet count 1 61,000. D-dimer was 5.78. Sodium 132, potassium 4.3, chlorides 106, CO2 21, BUN 18, creatinine 0.28. Glucose was 141. Calcium 7.8. C. difficile study was negative. Urine Legionella antigen was negative. Microbiologic studies are currently negative. Chest x-ray shows bibasilar airspace opacities, possibly consistent with pneumonia. 09/01/24 - The patient is seen today in room 252. Admitted to the hospital and the intensive care unit on 08/29/2024. The patient is currently on mechanical ventilator, his one from home. He is on volume assist control, rate of 20, tidal volume of 450, FiO2 45% and PEEP of 5. He currently has LR running at 50 cc/h, TPN at 91 cc/h, Zerbaxa and tobramycin. Chest Xray done this morning showed stable airspace opacities. Cultures are positive for pseudomonas aeruginosa, awaiting sensitivities. WBCs 2.69, Hgb 8.9, Hct 31.5, PLT 153, Na 135, K 3.4, Cl 109, HCO3 19, BUN 22, Cr 0.34, Phos 2.4. 09/02/24 - He is seen today in room 252. Admitted to the hospital and ICU on 08/29/24. He continues on mechanical ventilator, his one from home. He remaines on volume assist control, rate of 20, tidal volume of 450, FiO2 45% and PEEP of 5. He continues to have LR running at 50 cc/h, TPN at 91 cc/h, norepinephrine at 0.13 mcg/kg/min, Zebraxa and Tobramycin. Chest XRay this morning showed stable airspace opacities. Continue to await sensitivity of pseudomonas sputum culture. Lab work shows WBCs 3.64, Hgb 9.7, Hct 33.5, PLT 130, Na 133, K 3.9, bicarb 21, BUN 23, Cr 0.36, Ca 7.8, Mg 2.4, Albumin 2.3. 09/03/24 - He is seen in room 252. Admitted to the hospital and ICU on 08/29/24. He continues on mechanical ventilator, his one from home. He remaines on volume assist control, rate of 20, tidal volume of 450, FiO2 45% and PEEP of 5. He continues to have LR running at 50 cc/h, TPN at 91 cc/h, norepinephrine at 0.24 mcg/kg/min, Avycaz and Tobramycin. Zebraxa was discontinued as there was no reported sensitivity to it. Lab work shows WBCs 9.40, Hgb 8.8, Hct 30.6, PLT 100, Na 130, K 3.6, bicarb 23, BUN 25, Cr 0.51, Ca 7.8, Ionized Ca 4.6, Phos 3.3, Mg 2.1, TSH 2.710 and random cortisol 13.1. 09/04/24 - He is seen in room 252. Admitted to the hospital and ICU on 08/29/24. He continues on mechanical ventilator, his one from home. He remaines on volume assist control, rate of 20, tidal volume of 450, FiO2 45% and PEEP of 5. He continues to have LR running at 50 cc/h, TPN at 91 cc/h, norepinephrine at 0.24 mcg/kg/min, Avycaz and Tobramycin. Lab work shows sodium 133, potassium 3.5, bicarb 24, BUN 27, creatinine 0.47, calcium 7.9, ionized calcium 4.6, magnesium 1.9, phosphorus 3.0, total bilirubin 1.7, AST 57, ALT 45, alkaline phosphatase 99. Progress note dated September 05, 2024. 49-year-old male well-known to our service. He is seen today in room 252. He continues on volume assist-control, rate 20, tidal 450, FiO2 45%, PEEP of 5. The patient has refused blood gases. Currently, he is getting TPN at 65 cc an hour, norepinephrine at 1 mcg/min, LR at 50 cc/h. Clinically, the patient is doing well. His chest x-ray remains about the same. Yesterday he was on a hig her dose of norepinephrine, and also was on vasopressin. Both have been weaned off. Current labs include a sodium 136, potassium 4.1, chlorides 101, CO2 28, BUN 30, creatinine 0.37. Glucose 153. Albumin is 2.2. Previous sputum, from August 29 with positive for Pseudomonas aeruginosa. Chest x-ray is largely unchanged. Progress note dated September 06, 2024. 49-year-old male again seen today in the intensive care unit, room 252. He remains on mechanical ventilator, actually his home ventilator, with settings of volume assist-control, rate 20, tidal volume 450, FiO2 45%, PEEP of 5. No blood gases today. The patient has been refusing. He is getting lactated Ringer's at 50 cc an hour, TPN at 65 cc an hour. He continues on the same antibiotics. White count 5.21, hemoglobin 7.9, hematocrit 27.5, and platelet count 64,000. Sodium 141, potassium 3.5, chlorides 102, CO2 32, BUN 25, and creatinine 0.35. Glucose is 152. Calcium is 8. Albumin is 2.1. Chest x-ray is largely unchanged. 09/07/2024, the patient remains on a mechanical ventilator. The patient is having excessive respiratory secretions. Attempts to suction this patient has failed as the secretions are quite thick and the patient has had episodes of bradycardia while suctioning. Remains on TPN at 65 cc an hour and lactated Ringer at 50 cc an hour. Remains on assist-control mode mechanical ventilation at rate of 20, tidal volume of 450, FiO2 of 100% with a PEEP of 8. Patient has refused to have an arterial line. The patient has refused blood gases. Urine output is adequate. No hypotension. He has a double-lumen catheter in his left chest and the left forearm IV line.He is afebrile. He continues to have multidrug-resistant Pseudomonas in his sputum. The patient remains on ceftazidime/avibactam per IDs recommendations. He is also on IV tobramycin. Remains on stress dose hydrocortisone. Blood work shows a white cell count of 6.9, hemoglobin 7.9 and a platelet count of 90. BUN is 24 with a creatinine of 0.33. Sodium is 143 and a potassium level of 3.7. Bicarb level is at 33. Output from the ileostomy bag is high and the net fluid balance is +1.2 L over the past 24 hours. Airway pressures on the mechanical ventilator are elevated with an elevated peak airway pressure around 36 consistent with excessive respiratory secretions and mucous plugs. Chest x-ray shows atelectatic changes infiltrates in lung bases along with some scattered hazy bilateral pulmonary infiltrates. 09/08/2024, the patient is being seen for a follow-up. On today's evaluation, the patient is awake on no sedation. His chest x-ray showing worsening bilateral pulmonary filtrates. Running low-grade fever. A bronchoscopy in the BAL was done yesterday and the results are still pending for now. He remains on assist-control mode at rate of 20, tidal volume of 450, FiO2 of 60% with a PEEP of 8. He remains on lactated Ringer at rate of 50 cc an hour and TPN at rate of 65 cc an hour. He remains on IV Lasix. He remains on ceftazidime/avibactam regarding his multidrug-resistant Pseudomonas. He is also on tobramycin. The white cell count is 6 with a hemoglobin 7.7 and platelet count of 77. Sodium is at 143, BUN 24 with a creatinine of 0.2. Serum bicarb is at 34. LFTs are within normal limits. The patient had no blood cares for today. He has refused blood gases. On a separate note, cardiology was consulted regarding the episodes of bradycardia that the patient is encountering. Upon sectioning, the patient is having episodes of cardiac block, likely third-degree AV block that last around 5 to 8 seconds. Patient was taken off the scopolamine patch. On 09/09/2024, the patient remains on a mechanical ventilator. He is complaining of shortness of breath even while being on the mechanical ventilator. Repeat chest x-ray was done today and the patient has developed diffuse infiltrates bilaterally greater in the lung bases and there is interval worsening in the chest x-ray findings. The bronchoalveolar lavage that was obtained earlier on 09/07/2024 showed Pseudomonas aeruginosa and corynebacterium. The patient remains on ceftazidime avibactam and tobramycin. Vancomycin was also added. He is running a low-grade fever with a Tmax of 100.7. He remains on assist-control mode mechanical ventilation at rate of 20, tidal volume of 450, FiO2 of 60% with a PEEP of 8. The patient did not have a blood gas today. Fluid balance is +2.6 L over the past 24 hours. He is currently on IV Lasix 20 mg IV push every 8 hours. The patient is also on TPN at rate of 65 cc an hour and lactated Ringer at rate of 50 cc an hour. The white cell count is 4.6 with a heme of 7.3 and a platelet count of 72. Sodium is at 144, bicarb is at 34, BUN 22 with a creatinine of 0.38. Chloride is 103. Calcium levels at 7.4, phosphorus 3.6, LFTs are normal. Albumin levels at 2.1. Arousable, able to communicate. No significant cardiac arrhythmias over the past 24 hours. 09/10/2024, patient is awake and alert and communicating. Continues to have on and off episodes of shortness of breath while being on a mechanical ventilator. Oxygenation is borderline and the patient's pulse ox remains low. Unable to obtain any blood gases as the patient has declined arterial blood draws. He is on assist-control mode rate of 20, tidal volume of 450, FiO2 of 70% with a PEEP of 10. Remains on TPN at rate of 35 cc an hour and lactated Ringer at rate of 50 cc an hour. Fluid balance is +2.6 L over the past 24 hours.the white cell count is 6.3, hemoglobin is at 7.4, platelet count is a 73 and the patient remains on therapeutic dose of Lovenox. The patient's sodium levels at 143, K is at 3.3, bicarb is at 40 with a BUN of 21 and a creatinine of 0.8. Blood sugar is 140. The most recent lavage from the right lower lobe was positive for Pseudomonas aeruginosa and corynebacterium. The patient remains on a combination of ceftazidime antibacterial combination, tobramycin and IV vancomycin. Output from ileostomy is in order of 800 cc over the past 8 hours. Remains on IV Lasix. Chest x-ray is unchanged and it shows bilateral pulmonary infiltrates, diffuse increased interstitial lung markings, lines and catheters are in place, tracheostomy tube is in place. Objective - Vital Signs Vital signs: Vital Signs Temp 99.2 F 09/10/24 04:00 Pulse 72 09/10/24 08:07 Resp 20 09/10/24 07:00 BP 118/55 09/10/24 07:00 Pulse Ox 99 09/10/24 07:00 FiO2 70 09/10/24 07:53 Intake & Output 09/09/24 09/10/24 09/10/24 18:59 06:59 18:59 Intake Total 2380 1620 135 Output Total 2550 1500 250 Balance -170 120 -115 Weight 106.7 kg 104.8 kg Intake: IV 720 720 60 0.9 120 120 10 Ceftazidime/Avibactam 2.5 100 gm In Sodium Chloride 0. 9% 100 ml @ 50 mls/hr IVPB Q8HR [facility] Rx#: [id number] Lactated Ringers 1,000 ml 500 600 50 @ 50 mls/hr IV .Q20H [facility] Rx#:[id number] Intake, IV Titration 800 Amount Magnesium Sulfate-D5w Pmx 100 1 gm In Dextrose/Water 1 100ml.bag @ 100 mls/hr IVPB ONCE ONE Rx#: [id number] Potassium Chloride 10 meq 200 In Water For Injection 1 100ml.bag @ 100 mls/hr IVPB Q1HR [facility] Rx#: [id number] Vancomycin 1,500 mg In 500 Sodium Chloride 0.9% 500 ml 500 ml @ 167 mls/hr IVPB Q16H [facility] Rx#: [id number] TPN/PPN 860 900 75 Mvi, Adult No.4 with Vit 860 900 75 K 10 ml Trace (Conc-1Ml/ Dose) 1 ml Magnesium Sulfate gm 1 gm Sodium Phosphate 30 mmol Potassium Chloride 58 meq Sodium Acetate 90 meq Calcium Gluconate 0.5 gm In Amino Acids 5 %/ Dextrose 20 % 1,000 ml @ 65 mls/hr IV .BY DURATION [facility] Rx#:[id number] Output: Drainage 1000 1500 Medial Abdomen 1000 1500 Urine 1550 0 250 Other: Voiding Method External Catheter External Catheter # Voids 1 1 - Exam No acute distress, currently connected to the ventilator. He has a tracheostomy tube in place. The patient has a #6 [address] tracheostomy tube in place. Lethargic, follows simple commands. Profoundly weak in all 4 extremities. HEENT examination is grossly unremarkable. Mucous membranes are moist. No oral lesions. Neck supple. Full range of motion. No adenopathy thyromegaly or neck vein distention. Cardiovascular examination reveals regular rhythm rate. S1-S2 normal. No S3 or S4. No discernible murmur noted. Lungs reveal clear breath sounds. Breath sounds are diminished bilaterally and scattered rhonchi heard throughout the lung craft bilaterally. Tracheostomy tube in place. Abdomen reveals an enterocutaneous fistula, normal bowel sounds. No tenderness. No masses. Extremities are intact. No cyanosis clubbing and there is edema in his left lower extremity and upper extremities bilaterally. The patient has a below-knee amputation his right lower extremity. Skin is without rash or lesion. Neurologic examination is brief but nonfocal. He does have significant muscle atrophy, and contractures. He has a right below the knee amputation. Generalized profound weakness. Weak cough. Weak motor functions. - Labs CBC & Chem 7: 09/10/24 02:58 09/10/24 02:58 Labs: Abnormal Lab Results - Last 24 Hours (Table) 09/10/24 09/10/24 09/10/24 Range/Units 02:58 02:58 08:04 RBC 3.19 L (4.40-5.60) 10*6/uL Hgb 7.4 L (13.0-17.0) g/dL Hct 26.4 L (39.6-50.0) % MCH 23.2 L (27.0-32.0) pg MCHC 28.0 L (32.0-37.0) g/dL Plt Count 73 L (140-440) 10*3/uL Lymphocytes # 0.53 L (0.90-5.00) 10*3/uL Eosinophils # 0.02 L (0.04-0.35) 10*3/uL Immature Plt Fraction 16.7 H (1.1-6.1) % Potassium 3.3 L (3.5-5.1) mmol/L Carbon Dioxide 40 H (22-30) mmol/L BUN 21 H (9-20) mg/dL Creatinine 0.28 L (0.66-1.25) mg/dL Glucose 151 H (74-99) mg/dL POC Glucose (mg/dL) 140 H (70-110) mg/dL Calcium 7.1 L (8.4-10.2) mg/dL Total Bilirubin 1.7 H (0.2-1.3) mg/dL Total Protein 6.1 L (6.3-8.2) g/dL Albumin 2.2 L (3.5-5.0) g/dL Microbiology - Last 24 Hours (Table) 09/07/24 10:40 Gram Stain - Preliminary Bronchial Washings - Random Bronchial Washings Culture - Preliminary Pseudomonas aeruginosa Corynebacterium striatum group Assessment and Plan Plan: Septic shock, recovered and the patient is currently normotensive. Nevertheless, the patient continues to have bilateral pneumonia and the patient remains hypoxic, remains on a mechanical ventilator. Bilateral pneumonia with multidrug-resistant Pseudomonas aeruginosa. The patient is currently on ceftazidime/tazobactam and tobramycin combination. Repeat bronchoscopy on 09/07/2024 shows a positive Pseudomonas aeruginosa and corynebacterium in the BAL collected from the right lower lobe. The patient remains on the same antibiotic coverage and vancomycin was also added due to worsening of the diffuse bilateral pulmonary filtrates as noted on today's chest x-ray. At the same time, the patient continues to have increased shortness of breath. Continues to have episodes of hypoxemia while being on a mechanical ventilator. Chest x-ray from today is unchanged. Low-grade fever, currently afebrile Chronic hypoxemic and hypercapnic respiratory failure, ventilator dependent, on a home ventilator, S/P tracheostomy. The patient failed his home ventilator and the patient is currently on a mechanical ventilator assist-control mode. Chest x-ray was noted. No blood Available. History of severe tracheal stenosis, S/P tracheostomy. 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 History of DVT. History of CVA. History of right below-knee amputation. Previous history of asystole/cardiac arrest, 2021. History of Crohn's disease, S/P enterocutaneous fistula, diverting ileostomy. The patient remains on TPN for nutritional support. Chronic thrombocytopenia Plan: Continue ventilator support Will drop the PEEP again down to 8 and FiO2 down to 60% Bronchoscopy was performed on 09/07/2024 and results are positive for Pseudomonas aeruginosa and corynebacterium in the right lower lobe bronchoalveolar lavage, and the patient remains on a combination of ceftazidime/avibactam, tobramycin and vancomycin. Unable to obtain blood gases and will continue monitoring the pulse ox. Continues on TPN at 65 cc an hour, Discontinue IV fluids as the patient continues to have excessive edema lower ext remities bilaterally Lovenox 90 mg SQ every 8 hours Stress dose hydrocortisone IV Protonix Monitor platelet count, the count is stable for now Monitor cardiac rhythm. No episodes of bradycardia echocardiogram from previous visits was normal. Cardiology will be consulted regarding the episodic AV block that the patient is encountering. Current cardiac rhythm is sinus and the patient is hemodynamically stable. Monitor ileostomy output Prognosis remains extremely poor due to above-mentioned comorbidities. Will continue to follow and make further recommendation based on his progress. This evaluation was done at 35 minutes. Time with Patient: Greater than 30
[2024-09-11 05:54] LABS: Basophils # (A) 0.00 10*3/uL (0.00-0.10); Basophils % (A) 0.0 %; Eosinophils # (A) 0.01 10*3/uL (0.04-0.35); Eosinophils % (A) 0.2 %; HCT 24.8 % (39.6-50.0); HGB 7.1 g/dL (13.0-17.0); Lymphocytes # (A) 0.48 10*3/uL (0.90-5.00); Lymphocytes % (A) 10.0 %; MCH 23.8 pg (27.0-32.0); MCHC 28.6 g/dL (32.0-37.0); MCV 83.2 fL (80.0-97.0); Monocytes # (A) 0.28 10*3/uL (0.20-1.00); Monocytes % (A) 5.8 %; Neutrophils # (A) 3.99 10*3/uL (1.80-7.70); Neutrophils % (A) 83.4 %; RBC 2.98 10*6/uL (4.40-5.60); RDW 19.2 % (11.5-14.5); WBC 4.79 10*3/uL (4.50-10.00)
[2024-09-11 06:09] LABS: ALT 27 U/L (4-49); AST 26 U/L (17-59); African American GFR (CKD) >90 (>60 ml/min/1.73 sqM); Albumin 2.2 g/dL (3.5-5.0); Alkaline Phosphatase 75 U/L (38-126); Anion Gap 4 mmol/L; Blood Urea Nitrogen 20 mg/dL (9-20); Calcium 7.0 mg/dL (8.4-10.2); Carbon Dioxide 38 mmol/L (22-30); Chloride 100 mmol/L (98-107); Glucose 165 mg/dL (74-99); Non-African American GFR(CKD) >90 (>60 ml/min/1.73 sqM); Potassium 3.8 mmol/L (3.5-5.1); Sodium 142 mmol/L (137-145); Total Protein 6.3 g/dL (6.3-8.2)
[2024-09-11 06:33] LABS: Platelet Count 89 10*3/uL (140-440)
--- NOTE | 2024-09-11 07:38 | XR ---
EXAMINATION TYPE: XR chest 1V portable DATE OF EXAM: 09/11/2024 4:40 AM COMPARISON: 09/10/2024 CLINICAL INDICATION: Male, 49 years old with history of Mechanical ventilation, difficulty breathing TECHNIQUE: XR chest 1V portable view(s) obtained. FINDINGS: The heart size is normal. The pulmonary vasculature is prominent. Increasing diffuse infiltrate is present. Correlate for pulmonary edema. Correlate for congestive hea rt failure. Small effusions are present. Tracheostomy tube is in the midline. Left central venous catheter tip is in distal superior vena cava region. IMPRESSION: 1. Small pleural effusions with diffuse pulmonary edema, correlate for congestive heart failure. 2. Lines and catheters discussed above [facility], , 09/11/2024 7:36 AM
[2024-09-11] MEDS: POTASSIUM CHLORIDE 20 MEQ in WATER FOR INJECTION 1 100ML.BAG IVPB ONE (09:26)
[2024-09-11 10:42] LABS: Iron 16 UG/DL (65-175); Total Iron Binding Capacity 203 UG/DL (228-460)
[2024-09-11] MEDS: VANCOMYCIN TROUGH DUE 1 EACH MISC MISCELLANE ONE (11:04)
[2024-09-11] MEDS: MAGNESIUM SULFATE-D5W PMX 1 GM in DEXTROSE/WATER 1 100ML.BAG IVPB ONE (11:42)
--- NOTE | 2024-09-11 14:51 | P.PN ---
Subjective Progress Note Date: 09/11/24 This is a 49-year-old white male familiar to my service, history of paraplegia, home vent dependent, history of tracheostomy, patient had multiple admissions to the ICU for recurrent episodes of pneumonia and respiratory failure requiring ventilatory support. On his last admission patient was eventually discharged home on a home ventilator, and this was back on 08/04/2024. Patient was discharged home with a PICC line, patient was in the ER yesterday on 08/28 for abnormal labs mostly low potassium and low sodium discharged home however he came back today complaining of shortness of breath, has been ventilator dependent all along. Chest x-ray showed basically bibasilar opacities/atelectasis, doubt pneumonia, the findings in the left lower lobe are chronic. Patient did have previous history of pneumonia involving the left lower lobe and he had multiple bronchoscopies in the past. Bronchial cultures and sputum cultures have been positive in the past for mostly Pseudomonas aeruginosa. Patient was seen in the ER today, and he is already on cefepime for empiric coverage for potential left lower lobe pneumonia, patient had abnormal electrolytes with relatively low sodium low potassium, no leukocytosis, normal renal profile, blood pressure was soft, and he was given fluid boluses. Lactic acid was 2.1, D-dimer is normal, patient was admitted, and this consult was initiated. 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 Patient was seen today on 08/30/2024, patient continues to have intermittent episodes of fever with Tmax of 102, patient required norepinephrine and he remains on norepinephrine at 0.04 mcg/kg/min remains on LR at 130 cc/h remains on his home ventilator at tidal volume of 450 rate of 20 FiO2 45% and PEEP of 5. Seems comfortable, not in distress, his WBC is 3.5 hemoglobin 10.0 electrolytes are normal renal profile is normal potassium is borderline low. Patient remains on cefepime, vancomycin was added because of his previous history of MRSA, and is on cefepime for previous history of pseudomonal infection and now that the patient may be septic it is more of a reason to broaden the spectrum of antibiotics coverage with cefepime and vancomycin. Sputum cultures and blood cultures are pending. Patient does have history of pseudomonal and history of MRSA infections, and I discontinued his Zithromax today replace Zithromax with vancomycin. Viral screen is negative Legionella antigen is negative. Chest x- ray is relatively unchanged continues to show bibasilar opacities atelectasi s/pneumonia. Progress note dated August 31, 2024. The patient is seen today in room 252. The patient was admitted a couple days ago, to the intensive care unit. The patient is currently on mechanical ventilator, actually his home ventilator. He is on volume assist-control, rate 20, tidal volume 450, FiO2 45% PEEP of 5. The patient is getting lactated Ringer's at 130 cc an hour, TPN at 91 cc an hour, norepinephrine at 8 mcg/min. Doppler of the left upper extremity was negative. He continues on Zerbaxa, and vancomycin. We will check a procalcitonin level. Cultures thus far are negative. He does have a previous history of methicillin-resistant Staph aureus infection, and pseudomonal infections. White count was 2.21, hemoglobin 9.3, hematocrit 32, platelet count 1 61,000. D-dimer was 5.78. Sodium 132, potassium 4.3, chlorides 106, CO2 21, BUN 18, creatinine 0.28. Glucose was 141. Calcium 7.8. C. difficile study was negative. Urine Legionella antigen was negative. Microbiologic studies are currently negative. Chest x-ray shows bibasilar airspace opacities, possibly consistent with pneumonia. 09/01/24 - The patient is seen today in room 252. Admitted to the hospital and the intensive care unit on 08/29/2024. The patient is currently on mechanical ventilator, his one from home. He is on volume assist control, rate of 20, tidal volume of 450, FiO2 45% and PEEP of 5. He currently has LR running at 50 cc/h, TPN at 91 cc/h, Zerbaxa and tobramycin. Chest Xray done this morning showed stable airspace opacities. Cultures are positive for pseudomonas aeruginosa, awaiting sensitivities. WBCs 2.69, Hgb 8.9, Hct 31.5, PLT 153, Na 135, K 3.4, Cl 109, HCO3 19, BUN 22, Cr 0.34, Phos 2.4. 09/02/24 - He is seen today in room 252. Admitted to the hospital and ICU on 08/29/24. He continues on mechanical ventilator, his one from home. He remaines on volume assist control, rate of 20, tidal volume of 450, FiO2 45% and PEEP of 5. He continues to have LR running at 50 cc/h, TPN at 91 cc/h, norepinephrine at 0.13 mcg/kg/min, Zebraxa and Tobramycin. Chest XRay this morning showed stable airspace opacities. Continue to await sensitivity of pseudomonas sputum culture. Lab work shows WBCs 3.64, Hgb 9.7, Hct 33.5, PLT 130, Na 133, K 3.9, bicarb 21, BUN 23, Cr 0.36, Ca 7.8, Mg 2.4, Albumin 2.3. 09/03/24 - He is seen in room 252. Admitted to the hospital and ICU on 08/29/24. He continues on mechanical ventilator, his one from home. He remaines on volume assist control, rate of 20, tidal volume of 450, FiO2 45% and PEEP of 5. He continues to have LR running at 50 cc/h, TPN at 91 cc/h, norepinephrine at 0.24 mcg/kg/min, Avycaz and Tobramycin. Zebraxa was discontinued as there was no reported sensitivity to it. Lab work shows WBCs 9.40, Hgb 8.8, Hct 30.6, PLT 100, Na 130, K 3.6, bicarb 23, BUN 25, Cr 0.51, Ca 7.8, Ionized Ca 4.6, Phos 3.3, Mg 2.1, TSH 2.710 and random cortisol 13.1. 09/04/24 - He is seen in room 252. Admitted to the hospital and ICU on 08/29/24. He continues on mechanical ventilator, his one from home. He remaines on volume assist control, rate of 20, tidal volume of 450, FiO2 45% and PEEP of 5. He continues to have LR running at 50 cc/h, TPN at 91 cc/h, norepinephrine at 0.24 mcg/kg/min, Avycaz and Tobramycin. Lab work shows sodium 133, potassium 3.5, bicarb 24, BUN 27, creatinine 0.47, calcium 7.9, ionized calcium 4.6, magnesium 1.9, phosphorus 3.0, total bilirubin 1.7, AST 57, ALT 45, alkaline phosphatase 99. Progress note dated September 05, 2024. 49-year-old male well-known to our service. He is seen today in room 252. He continues on volume assist-control, rate 20, tidal 450, FiO2 45%, PEEP of 5. The patient has refused blood gases. Currently, he is getting TPN at 65 cc an hour, norepinephrine at 1 mcg/min, LR at 50 cc/h. Clinically, the patient is doing well. His chest x-ray remains about the same. Yesterday he was on a hig her dose of norepinephrine, and also was on vasopressin. Both have been weaned off. Current labs include a sodium 136, potassium 4.1, chlorides 101, CO2 28, BUN 30, creatinine 0.37. Glucose 153. Albumin is 2.2. Previous sputum, from August 29 with positive for Pseudomonas aeruginosa. Chest x-ray is largely unchanged. Progress note dated September 06, 2024. 49-year-old male again seen today in the intensive care unit, room 252. He remains on mechanical ventilator, actually his home ventilator, with settings of volume assist-control, rate 20, tidal volume 450, FiO2 45%, PEEP of 5. No blood gases today. The patient has been refusing. He is getting lactated Ringer's at 50 cc an hour, TPN at 65 cc an hour. He continues on the same antibiotics. White count 5.21, hemoglobin 7.9, hematocrit 27.5, and platelet count 64,000. Sodium 141, potassium 3.5, chlorides 102, CO2 32, BUN 25, and creatinine 0.35. Glucose is 152. Calcium is 8. Albumin is 2.1. Chest x-ray is largely unchanged. 09/07/2024, the patient remains on a mechanical ventilator. The patient is having excessive respiratory secretions. Attempts to suction this patient has failed as the secretions are quite thick and the patient has had episodes of bradycardia while suctioning. Remains on TPN at 65 cc an hour and lactated Ringer at 50 cc an hour. Remains on assist-control mode mechanical ventilation at rate of 20, tidal volume of 450, FiO2 of 100% with a PEEP of 8. Patient has refused to have an arterial line. The patient has refused blood gases. Urine output is adequate. No hypotension. He has a double-lumen catheter in his left chest and the left forearm IV line.He is afebrile. He continues to have multidrug-resistant Pseudomonas in his sputum. The patient remains on ceftazidime/avibactam per IDs recommendations. He is also on IV tobramycin. Remains on stress dose hydrocortisone. Blood work shows a white cell count of 6.9, hemoglobin 7.9 and a platelet count of 90. BUN is 24 with a creatinine of 0.33. Sodium is 143 and a potassium level of 3.7. Bicarb level is at 33. Output from the ileostomy bag is high and the net fluid balance is +1.2 L over the past 24 hours. Airway pressures on the mechanical ventilator are elevated with an elevated peak airway pressure around 36 consistent with excessive respiratory secretions and mucous plugs. Chest x-ray shows atelectatic changes infiltrates in lung bases along with some scattered hazy bilateral pulmonary infiltrates. 09/08/2024, the patient is being seen for a follow-up. On today's evaluation, the patient is awake on no sedation. His chest x-ray showing worsening bilateral pulmonary filtrates. Running low-grade fever. A bronchoscopy in the BAL was done yesterday and the results are still pending for now. He remains on assist-control mode at rate of 20, tidal volume of 450, FiO2 of 60% with a PEEP of 8. He remains on lactated Ringer at rate of 50 cc an hour and TPN at rate of 65 cc an hour. He remains on IV Lasix. He remains on ceftazidime/avibactam regarding his multidrug-resistant Pseudomonas. He is also on tobramycin. The white cell count is 6 with a hemoglobin 7.7 and platelet count of 77. Sodium is at 143, BUN 24 with a creatinine of 0.2. Serum bicarb is at 34. LFTs are within normal limits. The patient had no blood cares for today. He has refused blood gases. On a separate note, cardiology was consulted regarding the episodes of bradycardia that the patient is encountering. Upon sectioning, the patient is having episodes of cardiac block, likely third-degree AV block that last around 5 to 8 seconds. Patient was taken off the scopolamine patch. On 09/09/2024, the patient remains on a mechanical ventilator. He is complaining of shortness of breath even while being on the mechanical ventilator. Repeat chest x-ray was done today and the patient has developed diffuse infiltrates bilaterally greater in the lung bases and there is interval worsening in the chest x-ray findings. The bronchoalveolar lavage that was obtained earlier on 09/07/2024 showed Pseudomonas aeruginosa and corynebacterium. The patient remains on ceftazidime avibactam and tobramycin. Vancomycin was also added. He is running a low-grade fever with a Tmax of 100.7. He remains on assist-control mode mechanical ventilation at rate of 20, tidal volume of 450, FiO2 of 60% with a PEEP of 8. The patient did not have a blood gas today. Fluid balance is +2.6 L over the past 24 hours. He is currently on IV Lasix 20 mg IV push every 8 hours. The patient is also on TPN at rate of 65 cc an hour and lactated Ringer at rate of 50 cc an hour. The white cell count is 4.6 with a heme of 7.3 and a platelet count of 72. Sodium is at 144, bicarb is at 34, BUN 22 with a creatinine of 0.38. Chloride is 103. Calcium levels at 7.4, phosphorus 3.6, LFTs are normal. Albumin levels at 2.1. Arousable, able to communicate. No significant cardiac arrhythmias over the past 24 hours. 09/10/2024, patient is awake and alert and communicating. Continues to have on and off episodes of shortness of breath while being on a mechanical ventilator. Oxygenation is borderline and the patient's pulse ox remains low. Unable to obtain any blood gases as the patient has declined arterial blood draws. He is on assist-control mode rate of 20, tidal volume of 450, FiO2 of 70% with a PEEP of 10. Remains on TPN at rate of 35 cc an hour and lactated Ringer at rate of 50 cc an hour. Fluid balance is +2.6 L over the past 24 hours.the white cell count is 6.3, hemoglobin is at 7.4, platelet count is a 73 and the patient remains on therapeutic dose of Lovenox. The patient's sodium levels at 143, K is at 3.3, bicarb is at 40 with a BUN of 21 and a creatinine of 0.8. Blood sugar is 140. The most recent lavage from the right lower lobe was positive for Pseudomonas aeruginosa and corynebacterium. The patient remains on a combination of ceftazidime antibacterial combination, tobramycin and IV vancomycin. Output from ileostomy is in order of 800 cc over the past 8 hours. Remains on IV Lasix. Chest x-ray is unchanged and it shows bilateral pulmonary infiltrates, diffuse increased interstitial lung markings, lines and catheters are in place, tracheostomy tube is in place. 09/11/2024, the patient is stable, awake and alert and communicating. Remains on TPN for nutritional support with rate of 75 cc an hour. Remains on the same mechanical ventilator settings and the patient remains on assist-control mode at rate of 20, tidal volume of 450, FiO2 of 60% with a PEEP of 8. Fluid balance is -50 cc over the past 24 hours and the patient remains on IV Lasix 20 mg every 8 hours. The biotic coverage remains unchanged and the patient remains on a combination of ceftazidime IV Bactrim, tobramycin and vancomycin. The white cell count is at 4.7 with a hemoglobin of 7.1 and a platelet count of 89. BUN is 20 with a creatinine of 0.25. Sodium levels at 142. Serum iron levels at 16. Vancomycin trough is at 17. Follow-up chest x-ray from today shows stable bilateral pulmonary filtrates and pleural effusions bilaterally. Tracheostomy tube remains in good location. The patient continues to have high output through the ileostomy. Currently afebrile. No cardiac arrhythmias have been noted. Objective - Vital Signs Vital signs: Vital Signs Temp 98 F 09/11/24 04:00 Pulse 76 09/11/24 07:49 Resp 22 09/11/24 07:00 BP 115/53 09/11/24 07:00 Pulse Ox 98 09/11/24 07:00 FiO2 60 09/11/24 07:37 Intake & Output 09/10/24 09/11/24 09/11/24 18:59 06:59 18:59 Intake Total 1500 1140 95 Output Total 3449 746 4189 Balance 100 340 -1505 Weight 103 kg Intake: IV 625 1140 95 0.9 120 120 10 Ceftazidime/Avibactam 2.5 100 gm In Sodium Chloride 0. 9% 100 ml @ 50 mls/hr IVPB Q8HR ANNIE Rx#: [id number] Lactated Ringers 1,000 ml 180 120 10 @ 50 mls/hr IV .Q20H ANNIE Rx#:[id number] Mvi, Adult No.4 with Vit 225 900 75 K 10 ml Trace (Conc-1Ml/ Dose) 1 ml Magnesium Sulfate gm 2 gm Sodium Phosphate 30 mmol Potassium Chloride 80 meq Sodium Acetate 90 meq Calcium Gluconate 0.5 gm In Amino Acids 5 %/ Dextrose 20 % 1,000 ml @ 75 mls/hr IV .BY DURATION ANNIE Rx#:[id number] Intake, IV Titration 800 Amount Magnesium Sulfate-D5w Pmx 200 1 gm In Dextrose/Water 1 100ml.bag @ 100 mls/hr IVPB Q1H ANNIE Rx#: [id number] Mvi, Adult No.4 with Vit 600 K 10 ml Trace (Conc-1Ml/ Dose) 1 ml Magnesium Sulfate gm 1 gm Sodium Phosphate 30 mmol Potassium Chloride 58 meq Sodium Acetate 90 meq Calcium Gluconate 0.5 gm In Amino Acids 5 %/ Dextrose 20 % 1,000 ml @ 75 mls/hr IV .BY DURATION [facility] Rx#:[id number] TPN/PPN 75 Mvi, Adult No.4 with Vit 75 K 10 ml Trace (Conc-1Ml/ Dose) 1 ml Magnesium Sulfate gm 1 gm Sodium Phosphate 30 mmol Potassium Chloride 58 meq Sodium Acetate 90 meq Calcium Gluconate 0.5 gm In Amino Acids 5 %/ Dextrose 20 % 1,000 ml @ 65 mls/hr IV .BY DURATION [facility] Rx#:[id number] Output: Drainage 1600 Medial Abdomen 1600 Urine 1000 800 Stool 400 Other: Voiding Method External Catheter External Catheter # Voids 1 - Exam No acute distress, currently connected to the ventilator. He has a tracheostomy tube in place. The patient has a #6 [address] tracheostomy tube in place. Lethargic, follows simple commands. Profoundly weak in all 4 extremities. HEENT examination is grossly unremarkable. Mucous membranes are moist. No oral lesions. Neck supple. Full range of motion. No adenopathy thyromegaly or neck vein distention. Cardiovascular examination reveals regular rhythm rate. S1-S2 normal. No S3 or S4. No discernible murmur noted. Lungs reveal clear breath sounds. Breath sounds are diminished bilaterally and scattered rhonchi heard throughout the lung craft bilaterally. Tracheostomy tube in place. Abdomen reveals an enterocutaneous fistula, normal bowel sounds. No tenderness. No masses. Extremities are intact. No cyanosis clubbing and there is edema in his left lower extremity and upper extremities bilaterally. The patient has a below-knee amputation his right lower extremity. Skin is without rash or lesion. Neurologic examination is brief but nonfocal. He does have significant muscle atrophy, and contractures. He has a right below the knee amputation. Generalized profound weakness. Weak cough. Weak motor functions. - Labs CBC & Chem 7: 09/11/24 04:46 09/11/24 04:46 Labs: Abnormal Lab Results - Last 24 Hours (Table) 09/11/24 09/11/24 Range/Units 04:46 04:46 RBC 2.98 L (4.40-5.60) 10*6/uL Hgb 7.1 L (13.0-17.0) g/dL Hct 24.8 L (39.6-50.0) % MCH 23.8 L (27.0-32.0) pg MCHC 28.6 L (32.0-37.0) g/dL Plt Count 89 L (140-440) 10*3/uL Lymphocytes # 0.48 L (0.90-5.00) 10*3/uL Eosinophils # 0.01 L (0.04-0.35) 10*3/uL Carbon Dioxide 38 H (22-30) mmol/L Creatinine 0.25 L (0.66-1.25) mg/dL Glucose 165 H (74-99) mg/dL Calcium 7.0 L (8.4-10.2) mg/dL Total Bilirubin 1.5 H (0.2-1.3) mg/dL Albumin 2.2 L (3.5-5.0) g/dL Assessment and Plan Plan: Acute on chronic hypoxic respiratory failure. The patient remains on a mechanical ventilator. The patient has bilateral pleural effusion and bilateral pneumonia with multidrug-resistant Pseudomonas aeruginosa. The patient is currently on ceftazidime/tazobactam and tobramycin combination. Repeat bronchoscopy on 09/07/2024 shows a positive Pseudomonas aeruginosa and corynebacterium in the BAL collected from the right lower lobe. The patient remains on a combination of ceftazidime and Bactrim, vancomycin and tobramycin. Respiratory status remains unchanged. There is also development of bilateral pleural effusion and patient is currently being diuresed. Septic shock, recovered Low-grade fever, currently afebrile Chronic hypoxemic and hypercapnic respiratory failure, ventilator dependent, on a home ventilator, S/P tracheostomy. The patient failed his home ventilator and the patient is currently on a mechanical ventilator assist-control mode. Chest x-ray was noted. No blood Available. History of severe tracheal stenosis, S/P tracheostomy. 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 History of DVT. History of CVA. History of right below-knee amputation. Previous history of asystole/cardiac arrest, 2021. History of Crohn's disease, S/P enterocutaneous fistula, diverting ileostomy. The patient remains on TPN for nutritional support. Chronic thrombocytopenia Plan: Continue ventilator support Will drop the FiO2 down to 50% Bronchoscopy was performed on 09/07/2024 and results are positive for Pseudomonas aeruginosa and corynebacterium in the right lower lobe bronchoalveolar lavage, and the patient remains on a combination of ceftazidime/avibactam, tobramycin and vancomycin. Unable to obtain blood gases and will continue monitoring the pulse ox. Continues on TPN at 65 cc an hour, Discontinue IV fluids as the patient continues to have excessive edema lower extremities bilaterally IV fluids or KVO Continue IV Lasix Lovenox 90 mg SQ every 8 hours Stress dose hydrocortisone IV Protonix Monitor platelet count, the count is stable for now Monitor cardiac rhythm. No episodes of bradycardia echocardiogram from previous visits was normal. Cardiology will be consulted regarding the episodic AV block that the patient is encountering. Current cardiac rhythm is sinus and the patient is hemodynamically stable. Monitor ileostomy output Prognosis remains extremely poor due to above-mentioned comorbidities. Will continue to follow and make further recommendation based on his progress. This evaluation was done at 35 minutes. Time with Patient: Greater than 30
[2024-09-11] MEDS: CEFTOLOZANE/TAZOBACTAM 3 GM in SODIUM CHLORIDE 0.9% 100 ML IV SCH (15:55)
--- NOTE | 2024-09-11 16:53 | P.PN ---
Subjective Progress Note Date: 09/10/24 Principal diagnosis: Reason for follow-up is sepsis and pneumonia Patient is a 49-year-old male with a past medical history significant for CVA TIA DVT pneumonia history of complicated Crohn's disease in this patient who did have multiple abdominal surgeries patient also have a tracheostomy has been brought to the hospital with Generalized weakness did have a fever c oncerning for pneumonia on today's evaluation that is 09/10/2024,the patient remains to be afebrile, patient is intubated on the vent through the trach FiO2 currently 50% has been complaining of shortness of breath though no worsening secretion through the ET or any other changes reported by the nursing staff Patient did have a white count of 6.39, creatinine 0.28 BAL culture growing Pseudomonas and corynebacterium Objective - Vital Signs Vital signs: Vital Signs Temp 98.1 F 09/10/24 12:00 Pulse 87 09/10/24 12:00 Resp 21 09/10/24 12:00 BP 131/62 09/10/24 12:00 Pulse Ox 100 09/10/24 12:00 FiO2 60 09/10/24 12:00 Intake & Output 09/09/24 09/10/24 09/10/24 18:59 06:59 18:59 Intake Total 2380 1620 835 Output Total 2550 1500 650 Balance -170 120 185 Weight 106.7 kg 104.8 kg Intake: IV 720 720 260 0.9 120 120 50 Ceftazidime/Avibactam 2.5 100 100 gm In Sodium Chloride 0. 9% 100 ml @ 50 mls/hr IVPB Q8HR [facility] Rx#: [id number] Lactated Ringers 1,000 ml 500 600 110 @ 50 mls/hr IV .Q20H [facility] Rx#:[id number] Intake, IV Titration 800 500 Amount Magnesium Sulfate-D5w Pmx 100 1 gm In Dextrose/Water 1 100ml.bag @ 100 mls/hr IVPB ONCE ONE Rx#: [id number] Magnesium Sulfate-D5w Pmx 200 1 gm In Dextrose/Water 1 100ml.bag @ 100 mls/hr IVPB Q1H [facility] Rx#: [id number] Mvi, Adult No.4 with Vit 300 K 10 ml Trace (Conc-1Ml/ Dose) 1 ml Magnesium Sulfate gm 1 gm Sodium Phosphate 30 mmol Potassium Chloride 58 meq Sodium Acetate 90 meq Calcium Gluconate 0.5 gm In Amino Acids 5 %/ Dextrose 20 % 1,000 ml @ 75 mls/hr IV .BY DURATION [facility] Rx#:[id number] Potassium Chloride 10 meq 200 In Water For Injection 1 100ml.bag @ 100 mls/hr IVPB Q1HR [facility] Rx#: [id number] Vancomycin 1,500 mg In 500 Sodium Chloride 0.9% 500 ml 500 ml @ 167 mls/hr IVPB Q16H [facility] Rx#: [id number] TPN/PPN 860 900 75 Mvi, Adult No.4 with Vit 860 900 75 K 10 ml Trace (Conc-1Ml/ Dose) 1 ml Magnesium Sulfate gm 1 gm Sodium Phosphate 30 mmol Potassium Chloride 58 meq Sodium Acetate 90 meq Calcium Gluconate 0.5 gm In Amino Acids 5 %/ Dextrose 20 % 1,000 ml @ 65 mls/hr IV .BY DURATION [facility] Rx#:[id number] Output: Drainage 1000 1500 Medial Abdomen 1000 1500 Urine 1550 0 650 Other: Voiding Method External Catheter External Catheter # Voids 1 1 - Exam GENERAL DESCRIPTION: Middle-age male intubated on the vent RESPIRATORY SYSTEM: Unlabored breathing , decreased breath sounds at bases HEART: S1 S2 regular rate and rhythm , ABDOMEN: Soft , no tenderness EXTREMITIES: Swelling to the leg - Labs CBC & Chem 7: 09/11/24 04:46 09/11/24 04:46 Labs: Abnormal Lab Results - Last 24 Hours (Table) 09/10/24 09/10/24 09/10/24 Range/Units 02:58 02:58 08:04 RBC 3.19 L (4.40-5.60) 10*6/uL Hgb 7.4 L (13.0-17.0) g/dL Hct 26.4 L (39.6-50.0) % MCH 23.2 L (27.0-32.0) pg MCHC 28.0 L (32.0-37.0) g/dL Plt Count 73 L (140-440) 10*3/uL Lymphocytes # 0.53 L (0.90-5.00) 10*3/uL Eosinophils # 0.02 L (0.04-0.35) 10*3/uL Immature Plt Fraction 16.7 H (1.1-6.1) % Potassium 3.3 L (3.5-5.1) mmol/L Carbon Dioxide 40 H (22-30) mmol/L BUN 21 H (9-20) mg/dL Creatinine 0.28 L (0.66-1.25) mg/dL Glucose 151 H (74-99) mg/dL POC Glucose (mg/dL) 140 H (70-110) mg/dL Calcium 7.1 L (8.4-10.2) mg/dL Total Bilirubin 1.7 H (0.2-1.3) mg/dL Total Protein 6.1 L (6.3-8.2) g/dL Albumin 2.2 L (3.5-5.0) g/dL Microbiology - Last 24 Hours (Table) 09/07/24 10:40 Gram Stain - Preliminary Bronchial Washings - Random Bronchial Washings Culture - Preliminary Pseudomonas aeruginosa Corynebacterium striatum group Assessment and Plan (1) Pneumonia Current Visit: Yes Status: Acute Code(s): J18.9 - PNEUMONIA, UNSPECIFIED ORGANISM SNOMED Code(s): 096922000 (2) Sepsis Current Visit: Yes Status: Acute Code(s): A41.9 - SEPSIS, UNSPECIFIED ORGANISM SNOMED Code(s): 81034985 Plan: 1patient is a hospital with sepsis in this patient who did have fever tachycardia elevated lactic acid upon meeting criteria for SIRS/sepsis source likely pneumonia in this patient who did have history of recurrent multidrug- resistant Pseudomonas pneumonia and will need to cover for that pathogen while waiting for the culture to be finalized 2-blood cultures has been negative and sputum culture growing Pseudomonas that is sensitive to Avycaz and tobramycin, Zerbaxa sensitivity not reported 3-patient did have resolution of his fever and his white count has normalized 4patient is status post bronchoscopy lavage results currently growing Pseu domonas and corynebacterium, I did discuss with the micro lab Corynebacterium is moderate sensitivity has been requested sensitivity of Pseudomonas is pending 5- patient being treated with Avycaz day #9 along with the tobramycin, vancomycin has been added by pulmonary will need to monitor his kidney function closely with this combination of antibiotics Dictation was produced using [employer] dictation software. please excuse any grammatical, word or spelling errors. Time with Patient: Less than 30
--- NOTE | 2024-09-11 16:55 | P.PN ---
Subjective Progress Note Date: 09/11/24 Principal diagnosis: Reason for follow-up is sepsis and pneumonia Patient is a 49-year-old male with a past medical history significant for CVA TIA DVT pneumonia history of complicated Crohn's disease in this patient who did have multiple abdominal surgeries patient also have a tracheostomy has been brought to the hospital with Generalized weakness did have a fever c oncerning for pneumonia on today's evaluation that is 09/11/2024, the patient continues to be afebrile, the patient is intubated on the vent FiO2 currently at 50% no significant purulent secretion through the ET patient hemodynamically stable not requiring any pressor support. Patient white count is 4.79, creatinine 0.25 chest x-ray small effusion diffuse edema, BAL culture with Pseudomonas that is resistant to Avycaz Objective - Vital Signs Vital signs: Vital Signs Temp 98 F 09/11/24 04:00 Pulse 108 H 09/11/24 11:00 Resp 24 09/11/24 11:00 BP 119/72 09/11/24 11:00 Pulse Ox 93 L 09/11/24 11:00 FiO2 50 09/11/24 11:00 Intake & Output 09/10/24 09/11/24 09/11/24 18:59 06:59 18:59 Intake Total 1500 1140 432 Output Total 1785 716 7322 Balance 100 340 -2118 Weight 103 kg Intake: IV 625 1140 432 0.9 120 120 50 Ceftazidime/Avibactam 2.5 100 gm In Sodium Chloride 0. 9% 100 ml @ 50 mls/hr IVPB Q8HR [facility] Rx#: [id number] Fat Emulsion 20% 250 ml 42 In Empty Bag 1 bag @ 21 mls/hr IV Q72H [facility] Rx#: [id number] Lactated Ringers 1,000 ml 180 120 30 @ 50 mls/hr IV .Q20H [facility] Rx#:[id number] Mvi, Adult No.4 with Vit 225 900 310 K 10 ml Trace (Conc-1Ml/ Dose) 1 ml Magnesium Sulfate gm 2 gm Sodium Phosphate 30 mmol Potassium Chloride 80 meq Sodium Acetate 90 meq Calcium Gluconate 0.5 gm In Amino Acids 5 %/ Dextrose 20 % 1,000 ml @ 75 mls/hr IV .BY DURATION [facility] Rx#:[id number] Intake, IV Titration 800 Amount Magnesium Sulfate-D5w Pmx 200 1 gm In Dextrose/Water 1 100ml.bag @ 100 mls/hr IVPB Q1H [facility] Rx#: [id number] Mvi, Adult No.4 with Vit 600 K 10 ml Trace (Conc-1Ml/ Dose) 1 ml Magnesium Sulfate gm 1 gm Sodium Phosphate 30 mmol Potassium Chloride 58 meq Sodium Acetate 90 meq Calcium Gluconate 0.5 gm In Amino Acids 5 %/ Dextrose 20 % 1,000 ml @ 75 mls/hr IV .BY DURATION [facility] Rx#:[id number] TPN/PPN 75 Mvi, Adult No.4 with Vit 75 K 10 ml Trace (Conc-1Ml/ Dose) 1 ml Magnesium Sulfate gm 1 gm Sodium Phosphate 30 mmol Potassium Chloride 58 meq Sodium Acetate 90 meq Calcium Gluconate 0.5 gm In Amino Acids 5 %/ Dextrose 20 % 1,000 ml @ 65 mls/hr IV .BY DURATION [facility] Rx#:[id number] Output: Drainage 2150 Medial Abdomen 2150 Urine 1000 800 400 Stool 400 Other: Voiding Method External Catheter External Catheter External Catheter # Voids 1 - Exam GENERAL DESCRIPTION: Middle-age male intubated on the vent RESPIRATORY SYSTEM: Unlabored breathing , decreased breath sounds at bases HEART: S1 S2 regular rate and rhythm , ABDOMEN: Soft , no tenderness EXTREMITIES: Swelling to the leg - Labs CBC & Chem 7: 09/11/24 04:46 09/11/24 04:46 Labs: Abnormal Lab Results - Last 24 Hours (Table) 09/11/24 09/11/24 Range/Units 04:46 04:46 RBC 2.98 L (4.40-5.60) 10*6/uL Hgb 7.1 L (13.0-17.0) g/dL Hct 24.8 L (39.6-50.0) % MCH 23.8 L (27.0-32.0) pg MCHC 28.6 L (32.0-37.0) g/dL Plt Count 89 L (140-440) 10*3/uL Lymphocytes # 0.48 L (0.90-5.00) 10*3/uL Eosinophils # 0.01 L (0.04-0.35) 10*3/uL Carbon Dioxide 38 H (22-30) mmol/L Creatinine 0.25 L (0.66-1.25) mg/dL Glucose 165 H (74-99) mg/dL Calcium 7.0 L (8.4-10.2) mg/dL Iron 16 L (65-175) UG/DL TIBC 203 L (228-460) UG/DL % Saturation 7.88 L (15.00-50.00) Transferrin 145.0 L (204.0-354.0) mg/dL Total Bilirubin 1.5 H (0.2-1.3) mg/dL Albumin 2.2 L (3.5-5.0) g/dL Microbiology - Last 24 Hours (Table) 09/07/24 10:40 Gram Stain - Preliminary Bronchial Washings - Random Bronchial Washings Culture - Preliminary Pseudomonas aeruginosa Corynebacterium striatum group Assessment and Plan (1) Pneumonia Current Visit: Yes Status: Acute Code(s): J18.9 - PNEUMONIA, UNSPECIFIED ORGANISM SNOMED Code(s): 198954991 (2) Sepsis Current Visit: Yes Status: Acute Code(s): A41.9 - SEPSIS, UNSPECIFIED ORGANISM SNOMED Code(s): 71203944 Plan: 1patient is a hospital with sepsis in this patient who did have fever tach ycardia elevated lactic acid upon meeting criteria for SIRS/sepsis source likely pneumonia in this patient who did have history of recurrent multidrug-resistant Pseudomonas pneumonia and will need to cover for that pathogen while waiting for the culture to be finalized 2-blood cultures has been negative and sputum culture growing Pseudomonas that is sensitive to Avycaz and tobramycin, Zerbaxa sensitivity not reported 3-patient did have resolution of his fever and his white count has normalized 4patient is status post bronchoscopy lavage results currently growing Pseudomonas that is resistant to Avycaz and corynebacterium, sensitivity to corynebacterium is pending 5-I will discontinue Avycaz and tobramycin, 6patient will be started on Zerbaxa and continue with the vancomycin while waiting for the sensitivity on the corynebacterium as see clinical response Dictation was produced using [employer] dictation software. please excuse any grammatical, word or spelling errors. Time with Patient: Less than 30
--- NOTE | 2024-09-11 23:37 | P.PN ---
Subjective 49-year-old patient, History of paraplegia, home vent at night, tracheostomy multiple admissions to the ICU for recurrent pneumonia. Patient's previous bronchial cultures been positive for Pseudomonas. He was discharged recently on IV cefepime. Also has a history of Crohn's disease with previous colectomy diverting ileostomy. History of DVT for which patient is on subcu Lovenox. Also had drug-resistant MRSA Pseudomonas. Patient currently does not have areas significant trach secretions. He has continues TPN. Has a right BKA. He does have slight movement in the right hand. Able to follow commands by nodding his head. 09/06/2024 Patient is seen and evaluated in ICU; remains on mechanical ventilator, actually his home ventilator, with settings of volume assist-control, rate 20, tidal volume 450, FiO2 45%, PEEP of 5. - patient has been refusing blood; no ABGs to. He is getting lactated Ringer's at 50 cc an hour, TPN at 65 cc an hour. - patient remains on the same antibiotics. - Labs reviewed which reveal white count 5.21, hemoglobin 7.9, hematocrit 27.5, and platelet count 64,000. Sodium 141, potassium 3.5, chlorides 102, CO2 32, BUN 25, and creatinine 0.35. Glucose is 152. Calcium is 8. Albumin is 2.1. -Chest x-ray is largely unchanged. Critical care managing mechanical ventilation; recommending to add scopolamine patch for increased secretion -Patient remains on Avycaz and tobramycin - Continue with current TPN 09/07 Patient remains in the ICU lethargic. He is s/p tracheostomy Overnight he was more hypoxic they have to increase PEEP to 8. Also has a lot of secretions when needed for secretions suctioning to try to become apneic per Staff. Patient currently receiving Avycaz and tobramycin. on TPN also 09/08 Patient remains in the ICU awake and alert status post tracheostomy. He has contractures of both upper and lower extremities He is complaining from pain in his lungs. He is status post flexible bronchoscopy and bronchoalveolar lavage yesterday. He has previous sputum culture positive for Pseudomonas currently covered with ceftazidime and tobramycin. He is also on Lovenox 90 mg 09/09 Patient still in the ICU on mechanical ventilation via tracheostomy. PEEP is 8.0 as is yesterday Also he spiked little fever to 100.7. IV vancomycin is added to tobramycin and ceftazidime He is getting also bronchoscopy follow-up culture results 09/10 Patient feels clinically the same, he still getting breathing via mechanical ventilation through his tracheostomy with PEEP of 8. Patient feels he is required suctioning through his tracheostomy tube. He denies chest pain or pain anywhere else he can communicate by head signs and gestures. Hemodynamically stable and afebrile hemoglobin 7.4 platelet count 73 Glucose is controlled potassium 3.3 He remains on broad-spectrum antibiotic Rocephin at this time tobramycin and IV vancomycin added yesterday because he had low-grade fever. He is getting TPN. IV fluid Ringer lactate was stopped and patient was started on IV Lasix 20 mg 3 times a day continue with therapeutic dose of Lovenox as well 09/11 Patient remains in the ICU Remains on mechanical ventilation via tracheostomy He status post bronchoalveolar lavage 2 days ago, culture is growing Pseudomonas aeruginosa and corynebacterium Patient remains on broad-spectrum antibiotics with IV vancomycin, tobramycin, ceftazidime On IV Lasix also is on therapeutic dose of Lovenox 90 mg twice daily No IV fluids Objective - Vital Signs Vital signs: Vital Signs Temp 97.8 F 09/11/24 12:00 Pulse 100 09/11/24 15:22 Resp 22 09/11/24 15:00 BP 107/61 09/11/24 15:00 Pulse Ox 95 09/11/24 15:00 FiO2 50 09/11/24 15:22 Intake & Output 09/10/24 09/11/24 09/11/24 18:59 06:59 18:59 Intake Total 1500 1140 838 Output Total 2816 674 3531 Balance 100 340 -1712 Weight 103 kg Intake: IV 625 1140 638 0.9 120 120 60 Ceftazidime/Avibactam 2.5 100 100 gm In Sodium Chloride 0. 9% 100 ml @ 50 mls/hr IVPB Q8HR [facility] Rx#: [id number] Fat Emulsion 20% 250 ml 63 In Empty Bag 1 bag @ 21 mls/hr IV Q72H [facility] Rx#: [id number] Lactated Ringers 1,000 ml 180 120 30 @ 50 mls/hr IV .Q20H [facility] Rx#:[id number] Mvi, Adult No.4 with Vit 225 900 385 K 10 ml Trace (Conc-1Ml/ Dose) 1 ml Magnesium Sulfate gm 2 gm Sodium Phosphate 30 mmol Potassium Chloride 80 meq Sodium Acetate 90 meq Calcium Gluconate 0.5 gm In Amino Acids 5 %/ Dextrose 20 % 1,000 ml @ 75 mls/hr IV .BY DURATION [facility] Rx#:[id number] Intake, IV Titration 800 200 Amount Magnesium Sulfate-D5w Pmx 100 1 gm In Dextrose/Water 1 100ml.bag @ 100 mls/hr IVPB ONCE ONE Rx#: [id number] Magnesium Sulfate-D5w Pmx 200 1 gm In Dextrose/Water 1 100ml.bag @ 100 mls/hr IVPB Q1H [facility] Rx#: [id number] Mvi, Adult No.4 with Vit 600 K 10 ml Trace (Conc-1Ml/ Dose) 1 ml Magnesium Sulfate gm 1 gm Sodium Phosphate 30 mmol Potassium Chloride 58 meq Sodium Acetate 90 meq Calcium Gluconate 0.5 gm In Amino Acids 5 %/ Dextrose 20 % 1,000 ml @ 75 mls/hr IV .BY DURATION [facility] Rx#:[id number] Potassium Chloride 20 meq 100 In Water For Injection 1 100ml.bag @ 50 mls/hr IVPB ONCE ONE Rx#: [id number] TPN/PPN 75 Mvi, Adult No.4 with Vit 75 K 10 ml Trace (Conc-1Ml/ Dose) 1 ml Magnesium Sulfate gm 1 gm Sodium Phosphate 30 mmol Potassium Chloride 58 meq Sodium Acetate 90 meq Calcium Gluconate 0.5 gm In Amino Acids 5 %/ Dextrose 20 % 1,000 ml @ 65 mls/hr IV .BY DURATION [facility] Rx#:[id number] Output: Drainage 2150 Medial Abdomen 2150 Urine 1000 800 400 Stool 400 Other: Voiding Method External Catheter External Catheter External Catheter # Voids 1 - Exam GENERAL: The patient is alert and oriented x3, not in any acute distress. Well developed, well nourished. HEENT: Pupils are round and equally reacting to light. EOMI. No scleral icterus. No conjunctival pallor. Normocephalic, atraumatic. No pharyngeal erythema. No thyromegaly. CARDIOVASCULAR: S1 and S2 present. No murmurs, rubs, or gallops. -PULMONARY: Chest is clear to auscultation, no wheezing , no crackles. S/p tra cheostomy -ABDOMEN: Soft, nontender, nondistended, normoactive bowel sounds. No palpable organomegaly. S/p PEG tube MUSCULOSKELETAL: No joint swelling or deformity. -EXTREMITIES: No cyanosis, clubbing, or pedal edema. Status post right BKA NEUROLOGICAL: Gross neurological examination did not reveal any focal deficits. SKIN: No rashes. no petechiae. - Labs CBC & Chem 7: 09/11/24 04:46 09/11/24 04:46 Labs: Abnormal Lab Results - Last 24 Hours (Table) 09/11/24 09/11/24 Range/Units 04:46 04:46 RBC 2.98 L (4.40-5.60) 10*6/uL Hgb 7.1 L (13.0-17.0) g/dL Hct 24.8 L (39.6-50.0) % MCH 23.8 L (27.0-32.0) pg MCHC 28.6 L (32.0-37.0) g/dL Plt Count 89 L (140-440) 10*3/uL Lymphocytes # 0.48 L (0.90-5.00) 10*3/uL Eosinophils # 0.01 L (0.04-0.35) 10*3/uL Carbon Dioxide 38 H (22-30) mmol/L Creatinine 0.25 L (0.66-1.25) mg/dL Glucose 165 H (74-99) mg/dL Calcium 7.0 L (8.4-10.2) mg/dL Iron 16 L (65-175) UG/DL TIBC 203 L (228-460) UG/DL % Saturation 7.88 L (15.00-50.00) Transferrin 145.0 L (204.0-354.0) mg/dL Total Bilirubin 1.5 H (0.2-1.3) mg/dL Albumin 2.2 L (3.5-5.0) g/dL Microbiology - Last 24 Hours (Table) 09/07/24 10:40 Gram Stain - Preliminary Bronchial Washings - Random Bronchial Washings Culture - Preliminary Pseudomonas aeruginosa Corynebacterium striatum group Assessment and Plan Assessment: - basal pneumonia. Previous admission sputum was positive for Pseudomonas aeruginosa-: Clinically responding on IV Avycaz-.. IV tobramycin . No fever close to 48 hours Being followed by pulmonary, and ID -Loose stools negative for C. difficile Will add Metamucil to bulk up the stool - Septic shock: Slow to response Patient on Levophed. Vasopressin - Chronic hypoxic and hypercapnic respiratory failure, vent dependent at night at home - Tracheostomy with trach collar - Normocytic anemia of chronic disease and hospital-acquired anemia from blood draws Follow H&H - Thrombocytopenia likely from sepsis Follow - Right below-knee amputation - Chronic quadriparesis. Including left foot drop. Left arm contracture. Some right hand contracture. Some movement in the right arm - Crohn's disease with double barrel ostomy bag in place since 09/2021 - TPN - Full code Plan: Continue with antibiotics, currently on Avycaz and tobramycin. After vancomycin was added Continue with TPN Continue with Ringer lactate Patient on therapeutic dose of Lovenox Several consultants on the case including pulmonary and infectious disease team Labs and medication were reviewed.. Continue same treatment. Continue with symptomatic treatment. Resume home medication. Monitor labs and vitals. DVT and GI prophylaxis. Further recommendations as per clinical course of the patient DVT prophylaxis: Subcutaneous Lovenox GI Prophylaxis: Protonix Prognosis is guarded
[2024-09-12 06:10] LABS: Basophils # (A) 0.00 10*3/uL (0.00-0.10); Basophils % (A) 0.0 %; Eosinophils # (A) 0.00 10*3/uL (0.04-0.35); Eosinophils % (A) 0.0 %; HCT 21.2 % (39.6-50.0); Lymphocytes # (A) 0.54 10*3/uL (0.90-5.00); Lymphocytes % (A) 17.3 %; MCH 22.9 pg (27.0-32.0); MCHC 27.4 g/dL (32.0-37.0); MCV 83.8 fL (80.0-97.0); Monocytes # (A) 0.17 10*3/uL (0.20-1.00); Monocytes % (A) 5.4 %; Neutrophils # (A) 2.41 10*3/uL (1.80-7.70); Neutrophils % (A) 77.0 %; RBC 2.53 10*6/uL (4.40-5.60); RDW 19.3 % (11.5-14.5); WBC 3.13 10*3/uL (4.50-10.00)
[2024-09-12 06:27] LABS: HGB 5.8 g/dL (13.0-17.0)
[2024-09-12 06:28] LABS: Platelet Count 77 10*3/uL (140-440)
[2024-09-12 06:35] LABS: Glucose 161 mg/dL (74-99)
[2024-09-12 06:36] LABS: African American GFR (CKD) >90 (>60 ml/min/1.73 sqM); Blood Urea Nitrogen 25 mg/dL (9-20); Calcium 7.3 mg/dL (8.4-10.2); Chloride 100 mmol/L (98-107); Magnesium 2.2 mg/dL (1.6-2.3); Non-African American GFR(CKD) >90 (>60 ml/min/1.73 sqM); Potassium 3.6 mmol/L (3.5-5.1); Sodium 144 mmol/L (137-145)
[2024-09-12 06:56] LABS: Anion Gap 6 mmol/L; Carbon Dioxide 38 mmol/L (22-30)
--- NOTE | 2024-09-12 07:18 | XR ---
EXAMINATION TYPE: XR chest 1V portable DATE OF EXAM: 09/12/2024 4:51 AM COMPARISON: Chest radiograph from one day prior. CLINICAL INDICATION: Male, 49 years old with history of assess lungs; H TECHNIQUE: XR chest 1V portable Frontal view of the chest. FINDINGS: Lungs/Pleura: No evidence of focal consolidation or pneumothorax. Blunting of the costophrenic angles is present. Pulmonary vascularity: Pulmonary vascular congestion. Heart/mediastinum: Cardiomediastinal silhouette is enlarged. Musculoskeletal: No acute osseous pathology. Other findings: None Lines/Tubes: Tracheostomy cannula tip projecting over the trachea. Left central venous catheter with distal tip at the cavoatrial junction. IMPRESSION: Similar multifocal airspace opacities and bilateral pleural effusions. [facility], , 09/12/2024 7:16 AM
[2024-09-12 09:39] LABS: Triglycerides 152.00 mg/dL (0.00-149.00)
[2024-09-12 09:44] LABS: HCT 27.1 % (39.6-50.0); MCH 23.3 pg (27.0-32.0); MCHC 27.3 g/dL (32.0-37.0); MCV 85.2 fL (80.0-97.0); RBC 3.18 10*6/uL (4.40-5.60); RDW 19.4 % (11.5-14.5); WBC 5.02 10*3/uL (4.50-10.00)
[2024-09-12 10:01] LABS: HGB 7.4 g/dL (13.0-17.0)
[2024-09-12 10:02] LABS: Platelet Count 93 10*3/uL (140-440)
[2024-09-12] MEDS: guaiFENesin-DM 600/30MG 1 EACH TAB.ER.12H PO SCH (10:45)
--- NOTE | 2024-09-12 14:01 | P.PN ---
Subjective Progress Note Date: 09/12/24 This is a 49-year-old white male familiar to my service, history of paraplegia, home vent dependent, history of tracheostomy, patient had multiple admissions to the ICU for recurrent episodes of pneumonia and respiratory failure requiring ventilatory support. On his last admission patient was eventually discharged home on a home ventilator, and this was back on 08/04/2024. Patient was discharged home with a PICC line, patient was in the ER yesterday on 08/28 for abnormal labs mostly low potassium and low sodium discharged home however he came back today complaining of shortness of breath, has been ventilator dependent all along. Chest x-ray showed basically bibasilar opacities/atelectasis, doubt pneumonia, the findings in the left lower lobe are chronic. Patient did have previous history of pneumonia involving the left lower lobe and he had multiple bronchoscopies in the past. Bronchial cultures and sputum cultures have been positive in the past for mostly Pseudomonas aeruginosa. Patient was seen in the ER today, and he is already on cefepime for empiric coverage for potential left lower lobe pneumonia, patient had abnormal electrolytes with relatively low sodium low potassium, no leukocytosis, normal renal profile, blood pressure was soft, and he was given fluid boluses. Lactic acid was 2.1, D-dimer is normal, patient was admitted, and this consult was initiated. 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 Patient was seen today on 08/30/2024, patient continues to have intermittent episodes of fever with Tmax of 102, patient required norepinephrine and he remains on norepinephrine at 0.04 mcg/kg/min remains on LR at 130 cc/h remains on his home ventilator at tidal volume of 450 rate of 20 FiO2 45% and PEEP of 5. Seems comfortable, not in distress, his WBC is 3.5 hemoglobin 10.0 electrolytes are normal renal profile is normal potassium is borderline low. Patient remains on cefepime, vancomycin was added because of his previous history of MRSA, and is on cefepime for previous history of pseudomonal infection and now that the patient may be septic it is more of a reason to broaden the spectrum of antibiotics coverage with cefepime and vancomycin. Sputum cultures and blood cultures are pending. Patient does have history of pseudomonal and history of MRSA infections, and I discontinued his Zithromax today replace Zithromax with vancomycin. Viral screen is negative Legionella antigen is negative. Chest x- ray is relatively unchanged continues to show bibasilar opacities atelectasi s/pneumonia. Progress note dated August 31, 2024. The patient is seen today in room 252. The patient was admitted a couple days ago, to the intensive care unit. The patient is currently on mechanical ventilator, actually his home ventilator. He is on volume assist-control, rate 20, tidal volume 450, FiO2 45% PEEP of 5. The patient is getting lactated Ringer's at 130 cc an hour, TPN at 91 cc an hour, norepinephrine at 8 mcg/min. Doppler of the left upper extremity was negative. He continues on Zerbaxa, and vancomycin. We will check a procalcitonin level. Cultures thus far are negative. He does have a previous history of methicillin-resistant Staph aureus infection, and pseudomonal infections. White count was 2.21, hemoglobin 9.3, hematocrit 32, platelet count 1 61,000. D-dimer was 5.78. Sodium 132, potassium 4.3, chlorides 106, CO2 21, BUN 18, creatinine 0.28. Glucose was 141. Calcium 7.8. C. difficile study was negative. Urine Legionella antigen was negative. Microbiologic studies are currently negative. Chest x-ray shows bibasilar airspace opacities, possibly consistent with pneumonia. 09/01/24 - The patient is seen today in room 252. Admitted to the hospital and the intensive care unit on 08/29/2024. The patient is currently on mechanical ventilator, his one from home. He is on volume assist control, rate of 20, tidal volume of 450, FiO2 45% and PEEP of 5. He currently has LR running at 50 cc/h, TPN at 91 cc/h, Zerbaxa and tobramycin. Chest Xray done this morning showed stable airspace opacities. Cultures are positive for pseudomonas aeruginosa, awaiting sensitivities. WBCs 2.69, Hgb 8.9, Hct 31.5, PLT 153, Na 135, K 3.4, Cl 109, HCO3 19, BUN 22, Cr 0.34, Phos 2.4. 09/02/24 - He is seen today in room 252. Admitted to the hospital and ICU on 08/29/24. He continues on mechanical ventilator, his one from home. He remaines on volume assist control, rate of 20, tidal volume of 450, FiO2 45% and PEEP of 5. He continues to have LR running at 50 cc/h, TPN at 91 cc/h, norepinephrine at 0.13 mcg/kg/min, Zebraxa and Tobramycin. Chest XRay this morning showed stable airspace opacities. Continue to await sensitivity of pseudomonas sputum culture. Lab work shows WBCs 3.64, Hgb 9.7, Hct 33.5, PLT 130, Na 133, K 3.9, bicarb 21, BUN 23, Cr 0.36, Ca 7.8, Mg 2.4, Albumin 2.3. 09/03/24 - He is seen in room 252. Admitted to the hospital and ICU on 08/29/24. He continues on mechanical ventilator, his one from home. He remaines on volume assist control, rate of 20, tidal volume of 450, FiO2 45% and PEEP of 5. He continues to have LR running at 50 cc/h, TPN at 91 cc/h, norepinephrine at 0.24 mcg/kg/min, Avycaz and Tobramycin. Zebraxa was discontinued as there was no reported sensitivity to it. Lab work shows WBCs 9.40, Hgb 8.8, Hct 30.6, PLT 100, Na 130, K 3.6, bicarb 23, BUN 25, Cr 0.51, Ca 7.8, Ionized Ca 4.6, Phos 3.3, Mg 2.1, TSH 2.710 and random cortisol 13.1. 09/04/24 - He is seen in room 252. Admitted to the hospital and ICU on 08/29/24. He continues on mechanical ventilator, his one from home. He remaines on volume assist control, rate of 20, tidal volume of 450, FiO2 45% and PEEP of 5. He continues to have LR running at 50 cc/h, TPN at 91 cc/h, norepinephrine at 0.24 mcg/kg/min, Avycaz and Tobramycin. Lab work shows sodium 133, potassium 3.5, bicarb 24, BUN 27, creatinine 0.47, calcium 7.9, ionized calcium 4.6, magnesium 1.9, phosphorus 3.0, total bilirubin 1.7, AST 57, ALT 45, alkaline phosphatase 99. Progress note dated September 05, 2024. 49-year-old male well-known to our service. He is seen today in room 252. He continues on volume assist-control, rate 20, tidal 450, FiO2 45%, PEEP of 5. The patient has refused blood gases. Currently, he is getting TPN at 65 cc an hour, norepinephrine at 1 mcg/min, LR at 50 cc/h. Clinically, the patient is doing well. His chest x-ray remains about the same. Yesterday he was on a hig her dose of norepinephrine, and also was on vasopressin. Both have been weaned off. Current labs include a sodium 136, potassium 4.1, chlorides 101, CO2 28, BUN 30, creatinine 0.37. Glucose 153. Albumin is 2.2. Previous sputum, from August 29 with positive for Pseudomonas aeruginosa. Chest x-ray is largely unchanged. Progress note dated September 06, 2024. 49-year-old male again seen today in the intensive care unit, room 252. He remains on mechanical ventilator, actually his home ventilator, with settings of volume assist-control, rate 20, tidal volume 450, FiO2 45%, PEEP of 5. No blood gases today. The patient has been refusing. He is getting lactated Ringer's at 50 cc an hour, TPN at 65 cc an hour. He continues on the same antibiotics. White count 5.21, hemoglobin 7.9, hematocrit 27.5, and platelet count 64,000. Sodium 141, potassium 3.5, chlorides 102, CO2 32, BUN 25, and creatinine 0.35. Glucose is 152. Calcium is 8. Albumin is 2.1. Chest x-ray is largely unchanged. 09/07/2024, the patient remains on a mechanical ventilator. The patient is having excessive respiratory secretions. Attempts to suction this patient has failed as the secretions are quite thick and the patient has had episodes of bradycardia while suctioning. Remains on TPN at 65 cc an hour and lactated Ringer at 50 cc an hour. Remains on assist-control mode mechanical ventilation at rate of 20, tidal volume of 450, FiO2 of 100% with a PEEP of 8. Patient has refused to have an arterial line. The patient has refused blood gases. Urine output is adequate. No hypotension. He has a double-lumen catheter in his left chest and the left forearm IV line.He is afebrile. He continues to have multidrug-resistant Pseudomonas in his sputum. The patient remains on ceftazidime/avibactam per IDs recommendations. He is also on IV tobramycin. Remains on stress dose hydrocortisone. Blood work shows a white cell count of 6.9, hemoglobin 7.9 and a platelet count of 90. BUN is 24 with a creatinine of 0.33. Sodium is 143 and a potassium level of 3.7. Bicarb level is at 33. Output from the ileostomy bag is high and the net fluid balance is +1.2 L over the past 24 hours. Airway pressures on the mechanical ventilator are elevated with an elevated peak airway pressure around 36 consistent with excessive respiratory secretions and mucous plugs. Chest x-ray shows atelectatic changes infiltrates in lung bases along with some scattered hazy bilateral pulmonary infiltrates. 09/08/2024, the patient is being seen for a follow-up. On today's evaluation, the patient is awake on no sedation. His chest x-ray showing worsening bilateral pulmonary filtrates. Running low-grade fever. A bronchoscopy in the BAL was done yesterday and the results are still pending for now. He remains on assist-control mode at rate of 20, tidal volume of 450, FiO2 of 60% with a PEEP of 8. He remains on lactated Ringer at rate of 50 cc an hour and TPN at rate of 65 cc an hour. He remains on IV Lasix. He remains on ceftazidime/avibactam regarding his multidrug-resistant Pseudomonas. He is also on tobramycin. The white cell count is 6 with a hemoglobin 7.7 and platelet count of 77. Sodium is at 143, BUN 24 with a creatinine of 0.2. Serum bicarb is at 34. LFTs are within normal limits. The patient had no blood cares for today. He has refused blood gases. On a separate note, cardiology was consulted regarding the episodes of bradycardia that the patient is encountering. Upon sectioning, the patient is having episodes of cardiac block, likely third-degree AV block that last around 5 to 8 seconds. Patient was taken off the scopolamine patch. On 09/09/2024, the patient remains on a mechanical ventilator. He is complaining of shortness of breath even while being on the mechanical ventilator. Repeat chest x-ray was done today and the patient has developed diffuse infiltrates bilaterally greater in the lung bases and there is interval worsening in the chest x-ray findings. The bronchoalveolar lavage that was obtained earlier on 09/07/2024 showed Pseudomonas aeruginosa and corynebacterium. The patient remains on ceftazidime avibactam and tobramycin. Vancomycin was also added. He is running a low-grade fever with a Tmax of 100.7. He remains on assist-control mode mechanical ventilation at rate of 20, tidal volume of 450, FiO2 of 60% with a PEEP of 8. The patient did not have a blood gas today. Fluid balance is +2.6 L over the past 24 hours. He is currently on IV Lasix 20 mg IV push every 8 hours. The patient is also on TPN at rate of 65 cc an hour and lactated Ringer at rate of 50 cc an hour. The white cell count is 4.6 with a heme of 7.3 and a platelet count of 72. Sodium is at 144, bicarb is at 34, BUN 22 with a creatinine of 0.38. Chloride is 103. Calcium levels at 7.4, phosphorus 3.6, LFTs are normal. Albumin levels at 2.1. Arousable, able to communicate. No significant cardiac arrhythmias over the past 24 hours. 09/10/2024, patient is awake and alert and communicating. Continues to have on and off episodes of shortness of breath while being on a mechanical ventilator. Oxygenation is borderline and the patient's pulse ox remains low. Unable to obtain any blood gases as the patient has declined arterial blood draws. He is on assist-control mode rate of 20, tidal volume of 450, FiO2 of 70% with a PEEP of 10. Remains on TPN at rate of 35 cc an hour and lactated Ringer at rate of 50 cc an hour. Fluid balance is +2.6 L over the past 24 hours.the white cell count is 6.3, hemoglobin is at 7.4, platelet count is a 73 and the patient remains on therapeutic dose of Lovenox. The patient's sodium levels at 143, K is at 3.3, bicarb is at 40 with a BUN of 21 and a creatinine of 0.8. Blood sugar is 140. The most recent lavage from the right lower lobe was positive for Pseudomonas aeruginosa and corynebacterium. The patient remains on a combination of ceftazidime antibacterial combination, tobramycin and IV vancomycin. Output from ileostomy is in order of 800 cc over the past 8 hours. Remains on IV Lasix. Chest x-ray is unchanged and it shows bilateral pulmonary infiltrates, diffuse increased interstitial lung markings, lines and catheters are in place, tracheostomy tube is in place. 09/11/2024, the patient is stable, awake and alert and communicating. Remains on TPN for nutritional support with rate of 75 cc an hour. Remains on the same mechanical ventilator settings and the patient remains on assist-control mode at rate of 20, tidal volume of 450, FiO2 of 60% with a PEEP of 8. Fluid balance is -50 cc over the past 24 hours and the patient remains on IV Lasix 20 mg every 8 hours. The biotic coverage remains unchanged and the patient remains on a combination of ceftazidime IV Bactrim, tobramycin and vancomycin. The white cell count is at 4.7 with a hemoglobin of 7.1 and a platelet count of 89. BUN is 20 with a creatinine of 0.25. Sodium levels at 142. Serum iron levels at 16. Vancomycin trough is at 17. Follow-up chest x-ray from today shows stable bilateral pulmonary filtrates and pleural effusions bilaterally. Tracheostomy tube remains in good location. The patient continues to have high output through the ileostomy. Currently afebrile. No cardiac arrhythmias have been noted. 09/12/2024, patient is resting comfortably in bed. Remains on a mechanical ventilator. Unable to wean. Chest x-ray still showing bilateral pulmonary filtrates consistent with pneumonia. The patient is on assist-control mode at rate of 20, tidal volume of 450, FiO2 of 50% and a PEEP of 8. Remains negative fluid balance as the patient is being diuresed with IV Lasix. Fluid balance is -1 L over the past 24 hours. Remains on Lasix 20 mg IV push every 8 hours. Hemoglobin from this morning was 5.8. Repeat hemoglobin came back at 7.4. Platelet counts are stable. No evidence of any GI bleeding. Remains on Lovenox therapeutic dose. Remains on TPN at rate of 75 cc an hour. White cell count is at 5, platelet count is at 93, BUN is 25 with a creatinine 0.4. Sodium levels at 144 and a potassium level is at 3.6. Ileostomy still functioning. Remains on broad-spectrum antibiotics. Remains on ceftolozane/tazobactam. Remains on vancomycin. Remains on stress dose hydrocortisone. Objective - Vital Signs Vital signs: Vital Signs Temp 98.2 F 09/12/24 12:00 Pulse 89 09/12/24 13:00 Resp 20 09/12/24 13:00 BP 110/53 09/12/24 13:00 Pulse Ox 95 09/12/24 13:00 FiO2 50 09/12/24 13:00 Intake & Output 09/11/24 09/12/24 09/12/24 18:59 06:59 18:59 Intake Total 2972 1933.5 2100 Output Total 3600 1275 1035 Balance -628 658.5 1065 Weight 98.7 kg Intake: IV 1168 1041 685 0.9 110 120 60 Ceftazidime/Avibactam 2.5 100 100 gm In Sodium Chloride 0. 9% 100 ml @ 50 mls/hr IVPB Q8HR [facility] Rx#: [id number] Fat Emulsion 20% 250 ml 168 21 In Empty Bag 1 bag @ 21 mls/hr IV Q72H [facility] Rx#: [id number] Lactated Ringers 1,000 ml 30 @ 50 mls/hr IV .Q20H [facility] Rx#:[id number] Mvi, Adult No.4 with Vit 760 900 525 K 10 ml Trace (Conc-1Ml/ Dose) 1 ml Magnesium Sulfate gm 2 gm Sodium Phosphate 30 mmol Potassium Chloride 80 meq Sodium Acetate 90 meq Calcium Gluconate 0.5 gm In Amino Acids 5 %/ Dextrose 20 % 1,000 ml @ 75 mls/hr IV .BY DURATION [facility] Rx#:[id number] Intake, IV Titration 1804 892.5 1115 Amount Magnesium Sulfate gm 2 gm 1104 Sodium Phosphate 30 mmol Potassium Chloride 80 meq Sodium Acetate 90 meq Calcium Gluconate 0.5 gm In Amino Acids 5 %/ Dextrose 20 % 1,000 ml @ 75 mls/hr IV .BY DURATION [facility] Rx#:[id number] Magnesium Sulfate-D5w Pmx 100 1 gm In Dextrose/Water 1 100ml.bag @ 100 mls/hr IVPB ONCE ONE Rx#: [id number] Mvi, Adult No.4 with Vit 892.5 1115 K 10 ml Trace (Conc-1Ml/ Dose) 1 ml Magnesium Sulfate gm 2 gm Sodium Phosphate 30 mmol Potassium Chloride 80 meq Sodium Acetate 90 meq Calcium Gluconate 0.5 gm In Amino Acids 5 %/ Dextrose 20 % 1,000 ml @ 75 mls/hr IV .BY DURATION [facility] Rx#:[id number] Potassium Chloride 20 meq 100 In Water For Injection 1 100ml.bag @ 50 mls/hr IVPB ONCE ONE Rx#: [id number] Vancomycin 1,500 mg In 500 Sodium Chloride 0.9% 500 ml 500 ml @ 167 mls/hr IVPB Q16H [facility] Rx#: [id number] Oral 300 Output: Gastric Drainage 900 Drainage 2650 Medial Abdomen 2650 Urine 008 419 3634 Other: Voiding Method External Catheter External Catheter Indwelling Catheter # Voids 2 1 - Exam No acute distress, currently connected to the ventilator. He has a tracheostomy tube in place. The patient has a #6 [address]iley tracheostomy tube in place. Lethargic, follows simple commands. Profoundly weak in all 4 extremities. HEENT examination is grossly unremarkable. Mucous membranes are moist. No oral lesions. Neck supple. Full range of motion. No adenopathy thyromegaly or neck vein distention. Cardiovascular examination reveals regular rhythm rate. S1-S2 normal. No S3 or S4. No discernible murmur noted. Lungs reveal clear breath sounds. Breath sounds are diminished bilaterally and scattered rhonchi heard throughout the lung craft bilaterally. Tracheostomy tube in place. Abdomen reveals an enterocutaneous fistula, normal bowel sounds. No tenderness. No masses. Extremities are intact. No cyanosis clubbing and there is edema in his left lower extremity and upper extremities bilaterally. The patient has a below-knee amputation his right lower extremity. Skin is without rash or lesion. Neurologic examination is brief but nonfocal. He does have significant muscle atrophy, and contractures. He has a right below the knee amputation. Generalized profound weakness. Weak cough. Weak motor functions. - Labs CBC & Chem 7: 09/12/24 09:28 09/12/24 05:13 Labs: Abnormal Lab Results - Last 24 Hours (Table) 09/12/24 09/12/24 09/12/24 Range/Units 05:13 05:20 07:15 WBC 3.13 L (4.50-10.00) 10*3/uL RBC 2.53 L (4.40-5.60) 10*6/uL Hgb 5.8 L* (13.0-17.0) g/dL Hct 21.2 L (39.6-50.0) % MCH 22.9 L (27.0-32.0) pg MCHC 27.4 L (32.0-37.0) g/dL Plt Count 77 L (140-440) 10*3/uL Lymphocytes # 0.54 L (0.90-5.00) 10*3/uL Monocytes # 0.17 L (0.20-1.00) 10*3/uL Eosinophils # 0.00 L (0.04-0.35) 10*3/uL Carbon Dioxide 38 H (22-30) mmol/L BUN 25 H (9-20) mg/dL Creatinine 0.42 L (0.66-1.25) mg/dL Glucose 161 H (74-99) mg/dL Calcium 7.3 L (8.4-10.2) mg/dL Ionized Calcium Nita 4.1 L (4.5-5.3) mg/dL Triglycerides 152.00 H (0.00-149.00) mg/dL Crossmatch See Detail 09/12/24 Range/Units 09:28 WBC (4.50-10.00) 10*3/uL RBC 3.18 L (4.40-5.60) 10*6/uL Hgb 7.4 L D (13.0-17.0) g/dL Hct 27.1 L (39.6-50.0) % MCH 23.3 L (27.0-32.0) pg MCHC 27.3 L (32.0-37.0) g/dL Plt Count 93 L (140-440) 10*3/uL Lymphocytes # (0.90-5.00) 10*3/uL Monocytes # (0.20-1.00) 10*3/uL Eosinophils # (0.04-0.35) 10*3/uL Carbon Dioxide (22-30) mmol/L BUN (9-20) mg/dL Creatinine (0.66-1.25) mg/dL Glucose (74-99) mg/dL Calcium (8.4-10.2) mg/dL Ionized Calcium Nita (4.5-5.3) mg/dL Triglycerides (0.00-149.00) mg/dL Crossmatch Microbiology - Last 24 Hours (Table) 09/07/24 10:40 Gram Stain - Preliminary Bronchial Washings - Random Bronchial Washings Culture - Preliminary Pseudomonas aeruginosa Corynebacterium striatum group Assessment and Plan Plan: Acute on chronic hypoxic respiratory failure. The patient remains on a mechanical ventilator. The patient has bilateral pleural effusion and bilateral pneumonia with multidrug-resistant Pseudomonas aeruginosa. The patient is currently on ceftazidime/tazobactam and tobramycin combination. Repeat bronchoscopy on 09/07/2024 shows a positive Pseudomonas aeruginosa and corynebacterium in the BAL collected from the right lower lobe. The patient re alix on a combination of ceftolozane /tazobactam and vancomycin. Respiratory status remains unchanged. There is also development of bilateral pleural effusion and patient is currently being diuresed. Chest x-ray findings are unchanged. Oxygenation remained stable. The patient remains on a mechanical ventilator. Septic shock, recovered Low-grade fever, currently afebrile Chronic hypoxemic and hypercapnic respiratory failure, ventilator dependent, on a home ventilator, S/P tracheostomy. The patient failed his home ventilator and the patient is currently on a mechanical ventilator assist-control mode. Chest x-ray was noted. No blood Available. History of severe tracheal stenosis, S/P tracheostomy. 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 History of DVT. History of CVA. History of right below-knee amputation. Previous history of asystole/cardiac arrest, 2021. History of Crohn's disease, S/P enterocutaneous fistula, diverting ileostomy. The patient remains on TPN for nutritional support. Chronic thrombocytopenia Plan: Continue ventilator support Keep the patient on an FiO2 of 50% with a PEEP of 8. Bronchoscopy was performed on 09/07/2024 and results are positive for Pseudomonas aeruginosa and corynebacterium in the right lower lobe bronchoalveolar lavage, and the patient is currently on a combination of ceftolozane/ tazobactam and vancomycin. Chest x-ray findings remain stable, unchanged Continues on TPN at 65 cc an hour, IV fluids or KVO Continue IV Lasix, 20 mg every 8 hours with a negative fluid balance Lovenox 90 mg SQ every 8 hours Stress dose hydrocortisone IV Protonix Monitor platelet count, the count is stable for now Monitor cardiac rhythm. No episodes of bradycardia echocardiogram from previous visits was normal. Cardiology will be consulted regarding the episodic AV block that the patient is encountering. Current cardiac rhythm is sinus and the patient is hemodynamically stable. Monitor ileostomy output Monitor hemoglobin Prognosis remains extremely poor due to above-mentioned comorbidities. Will continue to follow and make further recommendation based on his progress. This evaluation was done at 35 minutes.
--- NOTE | 2024-09-12 14:35 | P.PN ---
Subjective Progress Note Date: 09/12/24 Principal diagnosis: Reason for follow-up is sepsis and pneumonia Patient is a 49-year-old male with a past medical history significant for CVA TIA DVT pneumonia history of complicated Crohn's disease in this patient who did have multiple abdominal surgeries patient also have a tracheostomy has been brought to the hospital with Generalized weakness did have a fever c oncerning for pneumonia on today's evaluation that is 09/13/2023, patient did have a temperature of 98.2 F at noon patient remains to be debated on the vent through the trach FiO2 is currently at 50% no significant purulent secretion through the ET seem to be breathing more comfortably as reported by the mother at the bedside. The patient white count is 5.02 Objective - Vital Signs Vital signs: Vital Signs Temp 98.2 F 09/12/24 12:00 Pulse 89 09/12/24 13:00 Resp 20 09/12/24 13:00 BP 110/53 09/12/24 13:00 Pulse Ox 95 09/12/24 13:00 FiO2 50 09/12/24 13:00 Intake & Output 09/11/24 09/12/24 09/12/24 18:59 06:59 18:59 Intake Total 2972 1933.5 2100 Output Total 3600 1275 1035 Balance -628 658.5 1065 Weight 98.7 kg Intake: IV 1168 1041 685 0.9 110 120 60 Ceftazidime/Avibactam 2.5 100 100 gm In Sodium Chloride 0. 9% 100 ml @ 50 mls/hr IVPB Q8HR [facility] Rx#: [id number] Fat Emulsion 20% 250 ml 168 21 In Empty Bag 1 bag @ 21 mls/hr IV Q72H [facility] Rx#: [id number] Lactated Ringers 1,000 ml 30 @ 50 mls/hr IV .Q20H [facility] Rx#:[id number] Mvi, Adult No.4 with Vit 760 900 525 K 10 ml Trace (Conc-1Ml/ Dose) 1 ml Magnesium Sulfate gm 2 gm Sodium Phosphate 30 mmol Potassium Chloride 80 meq Sodium Acetate 90 meq Calcium Gluconate 0.5 gm In Amino Acids 5 %/ Dextrose 20 % 1,000 ml @ 75 mls/hr IV .BY DURATION [facility] Rx#:[id number] Intake, IV Titration 1804 892.5 1115 Amount Magnesium Sulfate gm 2 gm 1104 Sodium Phosphate 30 mmol Potassium Chloride 80 meq Sodium Acetate 90 meq Calcium Gluconate 0.5 gm In Amino Acids 5 %/ Dextrose 20 % 1,000 ml @ 75 mls/hr IV .BY DURATION [facility], [facility] Rx#:[id number] Magnesium Sulfate-D5w Pmx 100 1 gm In Dextrose/Water 1 100ml.bag @ 100 mls/hr IVPB ONCE ONE Rx#: [id number] Mvi, Adult No.4 with Vit 892.5 1115 K 10 ml Trace (Conc-1Ml/ Dose) 1 ml Magnesium Sulfate gm 2 gm Sodium Phosphate 30 mmol Potassium Chloride 80 meq Sodium Acetate 90 meq Calcium Gluconate 0.5 gm In Amino Acids 5 %/ Dextrose 20 % 1,000 ml @ 75 mls/hr IV .BY DURATION [facility], [facility] Rx#:[id number] Potassium Chloride 20 meq 100 In Water For Injection 1 100ml.bag @ 50 mls/hr IVPB ONCE ONE Rx#: [id number] Vancomycin 1,500 mg In 500 Sodium Chloride 0.9% 500 ml 500 ml @ 167 mls/hr IVPB Q16H [facility] Rx#: [id number] Oral 300 Output: Gastric Drainage 900 Drainage 2650 Medial Abdomen 2650 Urine 254 304 4961 Other: Voiding Method External Catheter External Catheter Indwelling Catheter # Voids 2 1 - Exam GENERAL DESCRIPTION: Middle-age male intubated on the vent RESPIRATORY SYSTEM: Unlabored breathing , decreased breath sounds at bases HEART: S1 S2 regular rate and rhythm , ABDOMEN: Soft , no tenderness EXTREMITIES: Swelling to the leg - Labs CBC & Chem 7: 09/12/24 09:28 09/12/24 05:13 Labs: Abnormal Lab Results - Last 24 Hours (Table) 09/12/24 09/12/24 09/12/24 Range/Units 05:13 05:20 07:15 WBC 3.13 L (4.50-10.00) 10*3/uL RBC 2.53 L (4.40-5.60) 10*6/uL Hgb 5.8 L* (13.0-17.0) g/dL Hct 21.2 L (39.6-50.0) % MCH 22.9 L (27.0-32.0) pg MCHC 27.4 L (32.0-37.0) g/dL Plt Count 77 L (140-440) 10*3/uL Lymphocytes # 0.54 L (0.90-5.00) 10*3/uL Monocytes # 0.17 L (0.20-1.00) 10*3/uL Eosinophils # 0.00 L (0.04-0.35) 10*3/uL Carbon Dioxide 38 H (22-30) mmol/L BUN 25 H (9-20) mg/dL Creatinine 0.42 L (0.66-1.25) mg/dL Glucose 161 H (74-99) mg/dL Calcium 7.3 L (8.4-10.2) mg/dL Ionized Calcium Nita 4.1 L (4.5-5.3) mg/dL Triglycerides 152.00 H (0.00-149.00) mg/dL Crossmatch See Detail 09/12/24 Range/Units 09:28 WBC (4.50-10.00) 10*3/uL RBC 3.18 L (4.40-5.60) 10*6/uL Hgb 7.4 L D (13.0-17.0) g/dL Hct 27.1 L (39.6-50.0) % MCH 23.3 L (27.0-32.0) pg MCHC 27.3 L (32.0-37.0) g/dL Plt Count 93 L (140-440) 10*3/uL Lymphocytes # (0.90-5.00) 10*3/uL Monocytes # (0.20-1.00) 10*3/uL Eosinophils # (0.04-0.35) 10*3/uL Carbon Dioxide (22-30) mmol/L BUN (9-20) mg/dL Creatinine (0.66-1.25) mg/dL Glucose (74-99) mg/dL Calcium (8.4-10.2) mg/dL Ionized Calcium Nita (4.5-5.3) mg/dL Triglycerides (0.00-149.00) mg/dL Crossmatch Microbiology - Last 24 Hours (Table) 09/07/24 10:40 Gram Stain - Preliminary Bronchial Washings - Random Bronchial Washings Culture - Preliminary Pseudomonas aeruginosa Corynebacterium striatum group Assessment and Plan (1) Pneumonia Current Visit: Yes Status: Acute Code(s): J18.9 - PNEUMONIA, UNSPECIFIED ORGANISM SNOMED Code(s): 603223871 (2) Sepsis Current Visit: Yes Status: Acute Code(s): A41.9 - SEPSIS, UNSPECIFIED ORGANISM SNOMED Code(s): 76486291 Plan: 1patient is a hospital with sepsis in this patient who did have fever tachycardia elevated lactic acid upon meeting criteria for SIRS/sepsis source likely pneumonia in this patient who did have history of recurrent multidrug- resistant Pseudomonas pneumonia and will need to cover for that pathogen while waiting for the culture to be finalized 2-blood cultures has been negative and sputum culture growing Pseudomonas that is sensitive to Avycaz and tobramycin, Zerbaxa sensitivity not reported 3-patient did have resolution of his fever and his white count has normalized 4patient is status post bronchoscopy lavage results currently growing Pseudomonas that is resistant to Avycaz and corynebacterium, sensitivity on corynebacterium is pending 5-patient is currently being treated with Zerbaxa and vancomycin while waiting for the sensitivity on the corynebacterium and monitor clinical course closely Dictation was produced using [employer] dictation software. please excuse any grammatical, word or spelling errors. Time with Patient: Less than 30
--- NOTE | 2024-09-12 23:24 | P.PN ---
Subjective 49-year-old patient, History of paraplegia, home vent at night, tracheostomy multiple admissions to the ICU for recurrent pneumonia. Patient's previous bronchial cultures been positive for Pseudomonas. He was discharged recently on IV cefepime. Also has a history of Crohn's disease with previous colectomy diverting ileostomy. History of DVT for which patient is on subcu Lovenox. Also had drug-resistant MRSA Pseudomonas. Patient currently does not have areas significant trach secretions. He has continues TPN. Has a right BKA. He does have slight movement in the right hand. Able to follow commands by nodding his head. 09/06/2024 Patient is seen and evaluated in ICU; remains on mechanical ventilator, actually his home ventilator, with settings of volume assist-control, rate 20, tidal volume 450, FiO2 45%, PEEP of 5. - patient has been refusing blood; no ABGs to. He is getting lactated Ringer's at 50 cc an hour, TPN at 65 cc an hour. - patient remains on the same antibiotics. - Labs reviewed which reveal white count 5.21, hemoglobin 7.9, hematocrit 27.5, and platelet count 64,000. Sodium 141, potassium 3.5, chlorides 102, CO2 32, BUN 25, and creatinine 0.35. Glucose is 152. Calcium is 8. Albumin is 2.1. -Chest x-ray is largely unchanged. Critical care managing mechanical ventilation; recommending to add scopolamine patch for increased secretion -Patient remains on Avycaz and tobramycin - Continue with current TPN 09/07 Patient remains in the ICU lethargic. He is s/p tracheostomy Overnight he was more hypoxic they have to increase PEEP to 8. Also has a lot of secretions when needed for secretions suctioning to try to become apneic per Staff. Patient currently receiving Avycaz and tobramycin. on TPN also 09/08 Patient remains in the ICU awake and alert status post tracheostomy. He has contractures of both upper and lower extremities He is complaining from pain in his lungs. He is status post flexible bronchoscopy and bronchoalveolar lavage yesterday. He has previous sputum culture positive for Pseudomonas currently covered with ceftazidime and tobramycin. He is also on Lovenox 90 mg 09/09 Patient still in the ICU on mechanical ventilation via tracheostomy. PEEP is 8.0 as is yesterday Also he spiked little fever to 100.7. IV vancomycin is added to tobramycin and ceftazidime He is getting also bronchoscopy follow-up culture results 09/10 Patient feels clinically the same, he still getting breathing via mechanical ventilation through his tracheostomy with PEEP of 8. Patient feels he is required suctioning through his tracheostomy tube. He denies chest pain or pain anywhere else he can communicate by head signs and gestures. Hemodynamically stable and afebrile hemoglobin 7.4 platelet count 73 Glucose is controlled potassium 3.3 He remains on broad-spectrum antibiotic Rocephin at this time tobramycin and IV vancomycin added yesterday because he had low-grade fever. He is getting TPN. IV fluid Ringer lactate was stopped and patient was started on IV Lasix 20 mg 3 times a day continue with therapeutic dose of Lovenox as well 09/11 Patient remains in the ICU Remains on mechanical ventilation via tracheostomy He status post bronchoalveolar lavage 2 days ago, culture is growing Pseudomonas aeruginosa and corynebacterium Patient remains on broad-spectrum antibiotics with IV vancomycin, tobramycin, ceftazidime On IV Lasix also is on therapeutic dose of Lovenox 90 mg twice daily No IV fluids 09/12 Patient remains in the ICU Clinically close to what he was over the last 2 days still getting oxygen via his tracheostomy He remains on broad-spectrum antibiotic with Ceftin this time and IV vancomycin. Also he is on IV Lasix 20 mg and therapeutic dose of Lovenox. Objective - Vital Signs Vital signs: Vital Signs Temp 98.2 F 09/12/24 08:00 Pulse 102 H 09/12/24 10:00 Resp 24 09/12/24 10:00 BP 128/78 09/12/24 10:00 Pulse Ox 94 L 09/12/24 10:00 FiO2 50 09/12/24 10:00 Intake & Output 09/11/24 09/12/24 09/12/24 18:59 06:59 18:59 Intake Total 1868 1933.5 530 Output Total 3600 1275 560 Balance -1732 658.5 -30 Weight 98.7 kg Intake: IV 1168 1041 430 0.9 110 120 30 Ceftazidime/Avibactam 2.5 100 100 gm In Sodium Chloride 0. 9% 100 ml @ 50 mls/hr IVPB Q8HR [facility] Rx#: [id number] Fat Emulsion 20% 250 ml 168 21 In Empty Bag 1 bag @ 21 mls/hr IV Q72H [facility] Rx#: [id number] Lactated Ringers 1,000 ml 30 @ 50 mls/hr IV .Q20H [facility] Rx#:[id number] Mvi, Adult No.4 with Vit 760 900 300 K 10 ml Trace (Conc-1Ml/ Dose) 1 ml Magnesium Sulfate gm 2 gm Sodium Phosphate 30 mmol Potassium Chloride 80 meq Sodium Acetate 90 meq Calcium Gluconate 0.5 gm In Amino Acids 5 %/ Dextrose 20 % 1,000 ml @ 75 mls/hr IV .BY DURATION [facility] Rx#:[id number] Intake, IV Titration 700 892.5 Amount Magnesium Sulfate-D5w Pmx 100 1 gm In Dextrose/Water 1 100ml.bag @ 100 mls/hr IVPB ONCE ONE Rx#: [id number] Mvi, Adult No.4 with Vit 892.5 K 10 ml Trace (Conc-1Ml/ Dose) 1 ml Magnesium Sulfate gm 2 gm Sodium Phosphate 30 mmol Potassium Chloride 80 meq Sodium Acetate 90 meq Calcium Gluconate 0.5 gm In Amino Acids 5 %/ Dextrose 20 % 1,000 ml @ 75 mls/hr IV .BY DURATION [facility] Rx#:[id number] Potassium Chloride 20 meq 100 In Water For Injection 1 100ml.bag @ 50 mls/hr IVPB ONCE ONE Rx#: [id number] Vancomycin 1,500 mg In 500 Sodium Chloride 0.9% 500 ml 500 ml @ 167 mls/hr IVPB Q16H [facility] Rx#: [id number] Oral 100 Output: Gastric Drainage 900 Drainage 2650 Medial Abdomen 2650 Urine 950 375 560 Other: Voiding Method External Catheter External Catheter Indwelling Catheter # Voids 2 1 - Exam GENERAL: The patient is alert and oriented x3, not in any acute distress. Well developed, well nourished. HEENT: Pupils are round and equally reacting to light. EOMI. No scleral icterus. No conjunctival pallor. Normocephalic, atraumatic. No pharyngeal erythema. No thyromegaly. CARDIOVASCULAR: S1 and S2 present. No murmurs, rubs, or gallops. -PULMONARY: Chest is clear to auscultation, no wheezing , no crackles. S/p tracheostomy -ABDOMEN: Soft, nontender, nondistended, normoactive bowel sounds. No palpable organomegaly. S/p PEG tube MUSCULOSKELETAL: No joint swelling or deformity. -EXTREMITIES: No cyanosis, clubbing, or pedal edema. Status post right BKA NEUROLOGICAL: Gross neurological examination did not reveal any focal deficits. SKIN: No rashes. no petechiae. - Labs CBC & Chem 7: 09/12/24 09:28 09/12/24 05:13 Labs: Abnormal Lab Results - Last 24 Hours (Table) 09/12/24 09/12/24 09/12/24 Range/Units 05:13 05:20 07:15 WBC 3.13 L (4.50-10.00) 10*3/uL RBC 2.53 L (4.40-5.60) 10*6/uL Hgb 5.8 L* (13.0-17.0) g/dL Hct 21.2 L (39.6-50.0) % MCH 22.9 L (27.0-32.0) pg MCHC 27.4 L (32.0-37.0) g/dL Plt Count 77 L (140-440) 10*3/uL Lymphocytes # 0.54 L (0.90-5.00) 10*3/uL Monocytes # 0.17 L (0.20-1.00) 10*3/uL Eosinophils # 0.00 L (0.04-0.35) 10*3/uL Carbon Dioxide 38 H (22-30) mmol/L BUN 25 H (9-20) mg/dL Creatinine 0.42 L (0.66-1.25) mg/dL Glucose 161 H (74-99) mg/dL Calcium 7.3 L (8.4-10.2) mg/dL Ionized Calcium Nita 4.1 L (4.5-5.3) mg/dL Triglycerides 152.00 H (0.00-149.00) mg/dL Crossmatch See Detail 09/12/24 Range/Units 09:28 WBC (4.50-10.00) 10*3/uL RBC 3.18 L (4.40-5.60) 10*6/uL Hgb 7.4 L D (13.0-17.0) g/dL Hct 27.1 L (39.6-50.0) % MCH 23.3 L (27.0-32.0) pg MCHC 27.3 L (32.0-37.0) g/dL Plt Count 93 L (140-440) 10*3/uL Lymphocytes # (0.90-5.00) 10*3/uL Monocytes # (0.20-1.00) 10*3/uL Eosinophils # (0.04-0.35) 10*3/uL Carbon Dioxide (22-30) mmol/L BUN (9-20) mg/dL Creatinine (0.66-1.25) mg/dL Glucose (74-99) mg/dL Calcium (8.4-10.2) mg/dL Ionized Calcium Nita (4.5-5.3) mg/dL Triglycerides (0.00-149.00) mg/dL Crossmatch Microbiology - Last 24 Hours (Table) 09/07/24 10:40 Gram Stain - Preliminary Bronchial Washings - Random Bronchial Washings Culture - Preliminary Pseudomonas aeruginosa Corynebacterium striatum group Assessment and Plan Assessment: - basal pneumonia. Previous admission sputum was positive for Pseudomonas aeruginosa-: Clinically responding on IV Avycaz-.. IV tobramycin . No fever close to 48 hours Being followed by pulmonary, and ID -Loose stools negative for C. difficile Will add Metamucil to bulk up the stool - Septic shock: Slow to response Patient on Levophed. Vasopressin - Chronic hypoxic and hypercapnic respiratory failure, vent dependent at night at home - Tracheostomy with trach collar - Normocytic anemia of chronic disease and hospital-acquired anemia from blood draws Follow H&H - Thrombocytopenia likely from sepsis Follow - Right below-knee amputation - Chronic quadriparesis. Including left foot drop. Left arm contracture. Some right hand contracture. Some movement in the right arm - Crohn's disease with double barrel ostomy bag in place since 09/2021 - TPN - Full code Plan: Continue with antibiotics, currently on Avycaz vancomycin was added Continue with TPN Continue with Ringer lactate Patient on therapeutic dose of Lovenox Several consultants on the case including pulmonary and infectious disease team Labs and medication were reviewed.. Continue same treatment. Continue with symptomatic treatment. Resume home medication. Monitor labs and vitals. DVT and GI prophylaxis. Further recommendations as per clinical course of the patient DVT prophylaxis: Subcutaneous Lovenox GI Prophylaxis: Protonix Prognosis is guarded
--- NOTE | 2024-09-13 06:53 | XR ---
EXAMINATION TYPE: XR chest 1V portable DATE OF EXAM: 09/13/2024 5:14 AM COMPARISON: Chest radiograph from one day prior. CLINICAL INDICATION: Male, 49 years old with history of assess lungs; H TECHNIQUE: XR chest 1V portable Frontal view of the chest. FINDINGS: Lungs/Pleura: No evidence of focal consolidation or pneumothorax. Blunting of the costophrenic angles is present. Pulmonary vascularity: Pulmonary vascular congestion. Heart/mediastinum: Cardiomediastinal silhouette is enlarged. Musculoskeletal: No acute osseous pathology. Other findings: None Lines/Tubes: Tracheostomy cannula tip projecting over the trachea. Left central venous catheter with distal tip at the cavoatrial junction. IMPRESSION: Similar multifocal airspace opacities and bilateral pleural effusions. [facility], , 09/13/2024 6:51 AM
[2024-09-13 06:59] LABS: ALT 20 U/L (4-49); AST 17 U/L (17-59); African American GFR (CKD) >90 (>60 ml/min/1.73 sqM); Albumin 2.1 g/dL (3.5-5.0); Alkaline Phosphatase 69 U/L (38-126); Blood Urea Nitrogen 26 mg/dL (9-20); Calcium 7.3 mg/dL (8.4-10.2); Chloride 104 mmol/L (98-107); Glucose 174 mg/dL (74-99); Magnesium 2.1 mg/dL (1.6-2.3); Non-African American GFR(CKD) >90 (>60 ml/min/1.73 sqM); Potassium 3.2 mmol/L (3.5-5.1); Sodium 148 mmol/L (137-145); Total Protein 6.1 g/dL (6.3-8.2)
[2024-09-13 07:06] LABS: Anion Gap 6 mmol/L
[2024-09-13 07:10] LABS: Carbon Dioxide 38 mmol/L (22-30)
[2024-09-13 07:11] LABS: Basophils # (A) 0.00 10*3/uL (0.00-0.10); Basophils % (A) 0.0 %; Eosinophils # (A) 0.01 10*3/uL (0.04-0.35); Eosinophils % (A) 0.3 %; HCT 21.3 % (39.6-50.0); Lymphocytes # (A) 0.62 10*3/uL (0.90-5.00); Lymphocytes % (A) 18.9 %; MCH 22.9 pg (27.0-32.0); MCHC 27.2 g/dL (32.0-37.0); MCV 84.2 fL (80.0-97.0); Monocytes # (A) 0.26 10*3/uL (0.20-1.00); Monocytes % (A) 7.9 %; Neutrophils # (A) 2.38 10*3/uL (1.80-7.70); Neutrophils % (A) 72.6 %; Platelet Count 102 10*3/uL (140-440); RBC 2.53 10*6/uL (4.40-5.60); RDW 19.5 % (11.5-14.5); WBC 3.28 10*3/uL (4.50-10.00)
[2024-09-13 07:23] LABS: HGB 5.8 g/dL (13.0-17.0)
[2024-09-13 08:16] LABS: RBC Morphology Normal
[2024-09-13 08:51] LABS: HCT 21.9 % (39.6-50.0); MCH 23.4 pg (27.0-32.0); MCHC 27.9 g/dL (32.0-37.0); MCV 83.9 fL (80.0-97.0); Platelet Count 117 10*3/uL (140-440); RBC 2.61 10*6/uL (4.40-5.60); RDW 19.4 % (11.5-14.5); WBC 3.67 10*3/uL (4.50-10.00)
[2024-09-13 09:03] LABS: HGB 6.1 g/dL (13.0-17.0)
[2024-09-13] MEDS: POTASSIUM CHLORIDE 20 MEQ in WATER FOR INJECTION 1 100ML.BAG IVPB SCH (11:15)
--- NOTE | 2024-09-13 14:55 | P.PN ---
Subjective Progress Note Date: 09/13/24 Principal diagnosis: Reason for follow-up is sepsis and pneumonia Patient is a 49-year-old male with a past medical history significant for CVA TIA DVT pneumonia history of complicated Crohn's disease in this patient who did have multiple abdominal surgeries patient also have a tracheostomy has been brought to the hospital with Generalized weakness did have a fever c oncerning for pneumonia on today's evaluation that is 09/13/2024, Patient did have low-grade fever of 99.3 axillary this afternoon, patient is currently intubated on the vent FiO2 to 50% no significant purulent secretion through the ET patient been asking to drink water, no other changes reported. Patient white count is 3.6 and hemoglobin is 6.1 creatinine 0.44 Objective - Vital Signs Vital signs: Vital Signs Temp 99.3 F 09/13/24 12:09 Pulse 85 09/13/24 13:00 Resp 21 09/13/24 13:00 BP 131/62 09/13/24 13:00 Pulse Ox 97 09/13/24 13:00 FiO2 50 09/13/24 13:00 Intake & Output 09/12/24 09/13/24 09/13/24 18:59 06:59 18:59 Intake Total 2625 1105 510 Output Total 2285 2035 2430 Balance 340 -930 -1920 Weight 98 kg Intake: IV 1110 1105 510 0.9 110 130 60 Ceftazidime/Avibactam 2.5 100 gm In Sodium Chloride 0. 9% 100 ml @ 50 mls/hr IVPB Q8HR [facility] Rx#: [id number] Mvi, Adult No.4 with Vit 900 975 450 K 10 ml Trace (Conc-1Ml/ Dose) 1 ml Magnesium Sulfate gm 2 gm Sodium Phosphate 30 mmol Potassium Chloride 80 meq Sodium Acetate 90 meq Calcium Gluconate 0.5 gm In Amino Acids 5 %/ Dextrose 20 % 1,000 ml @ 75 mls/hr IV .BY DURATION [facility] Rx#:[id number] Intake, IV Titration 1115 Amount Mvi, Adult No.4 with Vit 1115 K 10 ml Trace (Conc-1Ml/ Dose) 1 ml Magnesium Sulfate gm 2 gm Sodium Phosphate 30 mmol Potassium Chloride 80 meq Sodium Acetate 90 meq Calcium Gluconate 0.5 gm In Amino Acids 5 %/ Dextrose 20 % 1,000 ml @ 75 mls/hr IV .BY DURATION [facility] Rx#:[id number] Oral 400 Blood Product 0 Unit 0 Output: Urine 1785 1285 1030 Stool 488 453 0266 Other: Voiding Method Indwelling Catheter Indwelling Catheter Indwelling Catheter - Exam GENERAL DESCRIPTION: Middle-age male intubated on the vent RESPIRATORY SYSTEM: Unlabored breathing , decreased breath sounds at bases HEART: S1 S2 regular rate and rhythm , ABDOMEN: Soft , no tenderness EXTREMITIES: Swelling to the leg - Labs CBC & Chem 7: 09/13/24 08:14 09/13/24 05:31 Labs: Abnormal Lab Results - Last 24 Hours (Table) 09/12/24 09/13/24 09/13/24 Range/Units 07:15 05:31 05:31 WBC 3.28 L (4.50-10.00) 10*3/uL RBC 2.53 L (4.40-5.60) 10*6/uL Hgb 5.8 L* D (13.0-17.0) g/dL Hct 21.3 L (39.6-50.0) % MCH 22.9 L (27.0-32.0) pg MCHC 27.2 L (32.0-37.0) g/dL Plt Count 102 L (140-440) 10*3/uL Lymphocytes # 0.62 L (0.90-5.00) 10*3/uL Eosinophils # 0.01 L (0.04-0.35) 10*3/uL Sodium 148 H (137-145) mmol/L Potassium 3.2 L (3.5-5.1) mmol/L Carbon Dioxide 38 H (22-30) mmol/L BUN 26 H (9-20) mg/dL Creatinine 0.44 L (0.66-1.25) mg/dL Glucose 174 H (74-99) mg/dL Calcium 7.3 L (8.4-10.2) mg/dL Total Protein 6.1 L (6.3-8.2) g/dL Albumin 2.1 L (3.5-5.0) g/dL Crossmatch See Detail 09/13/24 Range/Units 08:14 WBC 3.67 L (4.50-10.00) 10*3/uL RBC 2.61 L (4.40-5.60) 10*6/uL Hgb 6.1 L* (13.0-17.0) g/dL Hct 21.9 L (39.6-50.0) % MCH 23.4 L (27.0-32.0) pg MCHC 27.9 L (32.0-37.0) g/dL Plt Count 117 L (140-440) 10*3/uL Lymphocytes # (0.90-5.00) 10*3/uL Eosinophils # (0.04-0.35) 10*3/uL Sodium (137-145) mmol/L Potassium (3.5-5.1) mmol/L Carbon Dioxide (22-30) mmol/L BUN (9-20) mg/dL Creatinine (0.66-1.25) mg/dL Glucose (74-99) mg/dL Calcium (8.4-10.2) mg/dL Total Protein (6.3-8.2) g/dL Albumin (3.5-5.0) g/dL Crossmatch Assessment and Plan (1) Pneumonia Current Visit: Yes Status: Acute Code(s): J18.9 - PNEUMONIA, UNSPECIFIED ORGANISM SNOMED Code(s): 476085445 (2) Sepsis Current Visit: Yes Status: Acute Code(s): A41.9 - SEPSIS, UNSPECIFIED ORGANISM SNOMED Code(s): 69400897 Plan: 1patient is a hospital with sepsis in this patient who did have fever tachycardia elevated lactic acid upon meeting criteria for SIRS/sepsis source likely pneumonia in this patient who did have history of recurrent multidrug-re sistant Pseudomonas pneumonia and will need to cover for that pathogen while waiting for the culture to be finalized 2-blood cultures has been negative and sputum culture growing Pseudomonas that is sensitive to Avycaz and tobramycin, Zerbaxa sensitivity not reported 3-patient is status post bronchoscopy lavage results currently growing Pseudomonas that is resistant to Avycaz and corynebacterium, sensitivity on corynebacterium is pending 4-patient is currently being treated with Zerbaxa # 3/7 and vancomycin while waiting for the sensitivity on the corynebacterium and continue with supportive care Dictation was produced using [employer] dictation software. please excuse any grammatical, word or spelling errors. Time with Patient: Less than 30
--- NOTE | 2024-09-13 15:37 | P.PN ---
Subjective Progress Note Date: 09/13/24 This is a 49-year-old white male familiar to my service, history of paraplegia, home vent dependent, history of tracheostomy, patient had multiple admissions to the ICU for recurrent episodes of pneumonia and respiratory failure requiring ventilatory support. On his last admission patient was eventually discharged home on a home ventilator, and this was back on 08/04/2024. Patient was discharged home with a PICC line, patient was in the ER yesterday on 08/28 for abnormal labs mostly low potassium and low sodium discharged home however he came back today complaining of shortness of breath, has been ventilator dependent all along. Chest x-ray showed basically bibasilar opacities/atelectasis, doubt pneumonia, the findings in the left lower lobe are chronic. Patient did have previous history of pneumonia involving the left lower lobe and he had multiple bronchoscopies in the past. Bronchial cultures and sputum cultures have been positive in the past for mostly Pseudomonas aeruginosa. Patient was seen in the ER today, and he is already on cefepime for empiric coverage for potential left lower lobe pneumonia, patient had abnormal electrolytes with relatively low sodium low potassium, no leukocytosis, normal renal profile, blood pressure was soft, and he was given fluid boluses. Lactic acid was 2.1, D-dimer is normal, patient was admitted, and this consult was initiated. 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 Patient was seen today on 08/30/2024, patient continues to have intermittent episodes of fever with Tmax of 102, patient required norepinephrine and he remains on norepinephrine at 0.04 mcg/kg/min remains on LR at 130 cc/h remains on his home ventilator at tidal volume of 450 rate of 20 FiO2 45% and PEEP of 5. Seems comfortable, not in distress, his WBC is 3.5 hemoglobin 10.0 electrolytes are normal renal profile is normal potassium is borderline low. Patient remains on cefepime, vancomycin was added because of his previous history of MRSA, and is on cefepime for previous history of pseudomonal infection and now that the patient may be septic it is more of a reason to broaden the spectrum of antibiotics coverage with cefepime and vancomycin. Sputum cultures and blood cultures are pending. Patient does have history of pseudomonal and history of MRSA infections, and I discontinued his Zithromax today replace Zithromax with vancomycin. Viral screen is negative Legionella antigen is negative. Chest x- ray is relatively unchanged continues to show bibasilar opacities atelectasi s/pneumonia. Progress note dated August 31, 2024. The patient is seen today in room 252. The patient was admitted a couple days ago, to the intensive care unit. The patient is currently on mechanical ventilator, actually his home ventilator. He is on volume assist-control, rate 20, tidal volume 450, FiO2 45% PEEP of 5. The patient is getting lactated Ringer's at 130 cc an hour, TPN at 91 cc an hour, norepinephrine at 8 mcg/min. Doppler of the left upper extremity was negative. He continues on Zerbaxa, and vancomycin. We will check a procalcitonin level. Cultures thus far are negative. He does have a previous history of methicillin-resistant Staph aureus infection, and pseudomonal infections. White count was 2.21, hemoglobin 9.3, hematocrit 32, platelet count 1 61,000. D-dimer was 5.78. Sodium 132, potassium 4.3, chlorides 106, CO2 21, BUN 18, creatinine 0.28. Glucose was 141. Calcium 7.8. C. difficile study was negative. Urine Legionella antigen was negative. Microbiologic studies are currently negative. Chest x-ray shows bibasilar airspace opacities, possibly consistent with pneumonia. 09/01/24 - The patient is seen today in room 252. Admitted to the hospital and the intensive care unit on 08/29/2024. The patient is currently on mechanical ventilator, his one from home. He is on volume assist control, rate of 20, tidal volume of 450, FiO2 45% and PEEP of 5. He currently has LR running at 50 cc/h, TPN at 91 cc/h, Zerbaxa and tobramycin. Chest Xray done this morning showed stable airspace opacities. Cultures are positive for pseudomonas aeruginosa, awaiting sensitivities. WBCs 2.69, Hgb 8.9, Hct 31.5, PLT 153, Na 135, K 3.4, Cl 109, HCO3 19, BUN 22, Cr 0.34, Phos 2.4. 09/02/24 - He is seen today in room 252. Admitted to the hospital and ICU on 08/29/24. He continues on mechanical ventilator, his one from home. He remaines on volume assist control, rate of 20, tidal volume of 450, FiO2 45% and PEEP of 5. He continues to have LR running at 50 cc/h, TPN at 91 cc/h, norepinephrine at 0.13 mcg/kg/min, Zebraxa and Tobramycin. Chest XRay this morning showed stable airspace opacities. Continue to await sensitivity of pseudomonas sputum culture. Lab work shows WBCs 3.64, Hgb 9.7, Hct 33.5, PLT 130, Na 133, K 3.9, bicarb 21, BUN 23, Cr 0.36, Ca 7.8, Mg 2.4, Albumin 2.3. 09/03/24 - He is seen in room 252. Admitted to the hospital and ICU on 08/29/24. He continues on mechanical ventilator, his one from home. He remaines on volume assist control, rate of 20, tidal volume of 450, FiO2 45% and PEEP of 5. He continues to have LR running at 50 cc/h, TPN at 91 cc/h, norepinephrine at 0.24 mcg/kg/min, Avycaz and Tobramycin. Zebraxa was discontinued as there was no reported sensitivity to it. Lab work shows WBCs 9.40, Hgb 8.8, Hct 30.6, PLT 100, Na 130, K 3.6, bicarb 23, BUN 25, Cr 0.51, Ca 7.8, Ionized Ca 4.6, Phos 3.3, Mg 2.1, TSH 2.710 and random cortisol 13.1. 09/04/24 - He is seen in room 252. Admitted to the hospital and ICU on 08/29/24. He continues on mechanical ventilator, his one from home. He remaines on volume assist control, rate of 20, tidal volume of 450, FiO2 45% and PEEP of 5. He continues to have LR running at 50 cc/h, TPN at 91 cc/h, norepinephrine at 0.24 mcg/kg/min, Avycaz and Tobramycin. Lab work shows sodium 133, potassium 3.5, bicarb 24, BUN 27, creatinine 0.47, calcium 7.9, ionized calcium 4.6, magnesium 1.9, phosphorus 3.0, total bilirubin 1.7, AST 57, ALT 45, alkaline phosphatase 99. Progress note dated September 05, 2024. 49-year-old male well-known to our service. He is seen today in room 252. He continues on volume assist-control, rate 20, tidal 450, FiO2 45%, PEEP of 5. The patient has refused blood gases. Currently, he is getting TPN at 65 cc an hour, norepinephrine at 1 mcg/min, LR at 50 cc/h. Clinically, the patient is doing well. His chest x-ray remains about the same. Yesterday he was on a hig her dose of norepinephrine, and also was on vasopressin. Both have been weaned off. Current labs include a sodium 136, potassium 4.1, chlorides 101, CO2 28, BUN 30, creatinine 0.37. Glucose 153. Albumin is 2.2. Previous sputum, from August 29 with positive for Pseudomonas aeruginosa. Chest x-ray is largely unchanged. Progress note dated September 06, 2024. 49-year-old male again seen today in the intensive care unit, room 252. He remains on mechanical ventilator, actually his home ventilator, with settings of volume assist-control, rate 20, tidal volume 450, FiO2 45%, PEEP of 5. No blood gases today. The patient has been refusing. He is getting lactated Ringer's at 50 cc an hour, TPN at 65 cc an hour. He continues on the same antibiotics. White count 5.21, hemoglobin 7.9, hematocrit 27.5, and platelet count 64,000. Sodium 141, potassium 3.5, chlorides 102, CO2 32, BUN 25, and creatinine 0.35. Glucose is 152. Calcium is 8. Albumin is 2.1. Chest x-ray is largely unchanged. 09/07/2024, the patient remains on a mechanical ventilator. The patient is having excessive respiratory secretions. Attempts to suction this patient has failed as the secretions are quite thick and the patient has had episodes of bradycardia while suctioning. Remains on TPN at 65 cc an hour and lactated Ringer at 50 cc an hour. Remains on assist-control mode mechanical ventilation at rate of 20, tidal volume of 450, FiO2 of 100% with a PEEP of 8. Patient has refused to have an arterial line. The patient has refused blood gases. Urine output is adequate. No hypotension. He has a double-lumen catheter in his left chest and the left forearm IV line.He is afebrile. He continues to have multidrug-resistant Pseudomonas in his sputum. The patient remains on ceftazidime/avibactam per IDs recommendations. He is also on IV tobramycin. Remains on stress dose hydrocortisone. Blood work shows a white cell count of 6.9, hemoglobin 7.9 and a platelet count of 90. BUN is 24 with a creatinine of 0.33. Sodium is 143 and a potassium level of 3.7. Bicarb level is at 33. Output from the ileostomy bag is high and the net fluid balance is +1.2 L over the past 24 hours. Airway pressures on the mechanical ventilator are elevated with an elevated peak airway pressure around 36 consistent with excessive respiratory secretions and mucous plugs. Chest x-ray shows atelectatic changes infiltrates in lung bases along with some scattered hazy bilateral pulmonary infiltrates. 09/08/2024, the patient is being seen for a follow-up. On today's evaluation, the patient is awake on no sedation. His chest x-ray showing worsening bilateral pulmonary filtrates. Running low-grade fever. A bronchoscopy in the BAL was done yesterday and the results are still pending for now. He remains on assist-control mode at rate of 20, tidal volume of 450, FiO2 of 60% with a PEEP of 8. He remains on lactated Ringer at rate of 50 cc an hour and TPN at rate of 65 cc an hour. He remains on IV Lasix. He remains on ceftazidime/avibactam regarding his multidrug-resistant Pseudomonas. He is also on tobramycin. The white cell count is 6 with a hemoglobin 7.7 and platelet count of 77. Sodium is at 143, BUN 24 with a creatinine of 0.2. Serum bicarb is at 34. LFTs are within normal limits. The patient had no blood cares for today. He has refused blood gases. On a separate note, cardiology was consulted regarding the episodes of bradycardia that the patient is encountering. Upon sectioning, the patient is having episodes of cardiac block, likely third-degree AV block that last around 5 to 8 seconds. Patient was taken off the scopolamine patch. On 09/09/2024, the patient remains on a mechanical ventilator. He is complaining of shortness of breath even while being on the mechanical ventilator. Repeat chest x-ray was done today and the patient has developed diffuse infiltrates bilaterally greater in the lung bases and there is interval worsening in the chest x-ray findings. The bronchoalveolar lavage that was obtained earlier on 09/07/2024 showed Pseudomonas aeruginosa and corynebacterium. The patient remains on ceftazidime avibactam and tobramycin. Vancomycin was also added. He is running a low-grade fever with a Tmax of 100.7. He remains on assist-control mode mechanical ventilation at rate of 20, tidal volume of 450, FiO2 of 60% with a PEEP of 8. The patient did not have a blood gas today. Fluid balance is +2.6 L over the past 24 hours. He is currently on IV Lasix 20 mg IV push every 8 hours. The patient is also on TPN at rate of 65 cc an hour and lactated Ringer at rate of 50 cc an hour. The white cell count is 4.6 with a heme of 7.3 and a platelet count of 72. Sodium is at 144, bicarb is at 34, BUN 22 with a creatinine of 0.38. Chloride is 103. Calcium levels at 7.4, phosphorus 3.6, LFTs are normal. Albumin levels at 2.1. Arousable, able to communicate. No significant cardiac arrhythmias over the past 24 hours. 09/10/2024, patient is awake and alert and communicating. Continues to have on and off episodes of shortness of breath while being on a mechanical ventilator. Oxygenation is borderline and the patient's pulse ox remains low. Unable to obtain any blood gases as the patient has declined arterial blood draws. He is on assist-control mode rate of 20, tidal volume of 450, FiO2 of 70% with a PEEP of 10. Remains on TPN at rate of 35 cc an hour and lactated Ringer at rate of 50 cc an hour. Fluid balance is +2.6 L over the past 24 hours.the white cell count is 6.3, hemoglobin is at 7.4, platelet count is a 73 and the patient remains on therapeutic dose of Lovenox. The patient's sodium levels at 143, K is at 3.3, bicarb is at 40 with a BUN of 21 and a creatinine of 0.8. Blood sugar is 140. The most recent lavage from the right lower lobe was positive for Pseudomonas aeruginosa and corynebacterium. The patient remains on a combination of ceftazidime antibacterial combination, tobramycin and IV vancomycin. Output from ileostomy is in order of 800 cc over the past 8 hours. Remains on IV Lasix. Chest x-ray is unchanged and it shows bilateral pulmonary infiltrates, diffuse increased interstitial lung markings, lines and catheters are in place, tracheostomy tube is in place. 09/11/2024, the patient is stable, awake and alert and communicating. Remains on TPN for nutritional support with rate of 75 cc an hour. Remains on the same mechanical ventilator settings and the patient remains on assist-control mode at rate of 20, tidal volume of 450, FiO2 of 60% with a PEEP of 8. Fluid balance is -50 cc over the past 24 hours and the patient remains on IV Lasix 20 mg every 8 hours. The biotic coverage remains unchanged and the patient remains on a combination of ceftazidime IV Bactrim, tobramycin and vancomycin. The white cell count is at 4.7 with a hemoglobin of 7.1 and a platelet count of 89. BUN is 20 with a creatinine of 0.25. Sodium levels at 142. Serum iron levels at 16. Vancomycin trough is at 17. Follow-up chest x-ray from today shows stable bilateral pulmonary filtrates and pleural effusions bilaterally. Tracheostomy tube remains in good location. The patient continues to have high output through the ileostomy. Currently afebrile. No cardiac arrhythmias have been noted. 09/12/2024, patient is resting comfortably in bed. Remains on a mechanical ventilator. Unable to wean. Chest x-ray still showing bilateral pulmonary filtrates consistent with pneumonia. The patient is on assist-control mode at rate of 20, tidal volume of 450, FiO2 of 50% and a PEEP of 8. Remains negative fluid balance as the patient is being diuresed with IV Lasix. Fluid balance is -1 L over the past 24 hours. Remains on Lasix 20 mg IV push every 8 hours. Hemoglobin from this morning was 5.8. Repeat hemoglobin came back at 7.4. Platelet counts are stable. No evidence of any GI bleeding. Remains on Lovenox therapeutic dose. Remains on TPN at rate of 75 cc an hour. White cell count is at 5, platelet count is at 93, BUN is 25 with a creatinine 0.4. Sodium levels at 144 and a potassium level is at 3.6. Ileostomy still functioning. Remains on broad-spectrum antibiotics. Remains on ceftolozane/tazobactam. Remains on vancomycin. Remains on stress dose hydrocortisone. 09/13/2024, the patient is being seen for a follow-up. No change in his condition over the past 24 hours. Remains on a mechanical ventilator. Awake and alert and communicating. Started on fentanyl patch and his pain is under better control and the patient is using fentanyl patch 75 mcg every 72 hours. Remains assist-control mechanical ventilation at rate of 20, tidal volume of 450, FiO2 50% with a PEEP of 8. Chest x-ray from today shows stable bilateral pulmonary infiltrates, no significant change compared to yesterday and the tracheostomy tube remains in place. The patient continues to have multifocal airspace disease. Fluid balance is +30 cc over the past 24 hours. TPN is running at a rate of 75 cc an hour. Afebrile. Hemoglobin in this morning was at 5.8. Recheck was 6.1. The platelet count is 817. Sodium is at 148, potassium 3.2, BUN 26 with a creatinine of 0.44. Serum bicarb is at 38. The patient has a triglyceride level of 152. Remains on ceftolozane tazobactam and vancomycin. Objective - Vital Signs Vital signs: Vital Signs Temp 97.7 F 09/13/24 08:00 Pulse 78 09/13/24 08:00 Resp 21 09/13/24 08:00 BP 93/44 09/13/24 08:00 Pulse Ox 99 09/13/24 08:00 FiO2 50 09/13/24 08:49 Intake & Output 09/12/24 09/13/24 09/13/24 18:59 06:59 18:59 Intake Total 2625 1105 85 Output Total 8 5 950 Balance 340 930 -865 Weight 98 kg Intake: IV 1110 1105 85 0.9 110 130 10 Ceftazidime/Avibactam 2.5 100 gm In Sodium Chloride 0. 9% 100 ml @ 50 mls/hr IVPB Q8HR [facility] Rx#: [id number] Mvi, Adult No.4 with Vit 900 975 75 K 10 ml Trace (Conc-1Ml/ Dose) 1 ml Magnesium Sulfate gm 2 gm Sodium Phosphate 30 mmol Potassium Chloride 80 meq Sodium Acetate 90 meq Calcium Gluconate 0.5 gm In Amino Acids 5 %/ Dextrose 20 % 1,000 ml @ 75 mls/hr IV .BY DURATION [facility] Rx#:[id number] Intake, IV Titration 1115 Amount Mvi, Adult No.4 with Vit 1115 K 10 ml Trace (Conc-1Ml/ Dose) 1 ml Magnesium Sulfate gm 2 gm Sodium Phosphate 30 mmol Potassium Chloride 80 meq Sodium Acetate 90 meq Calcium Gluconate 0.5 gm In Amino Acids 5 %/ Dextrose 20 % 1,000 ml @ 75 mls/hr IV .BY DURATION [facility] Rx#:[id number] Oral 400 Output: Urine 1785 1285 250 Stool 500 750 700 Other: Voiding Method Indwelling Catheter Indwelling Catheter Indwelling Catheter - Exam No acute distress, currently connected to the ventilator. He has a tracheostomy tube in place. The patient has a #6 [address] tracheostomy tube in place. Lethargic, follows simple commands. Profoundly weak in all 4 extremities. HEENT examination is grossly unremarkable. Mucous membranes are moist. No oral lesions. Neck supple. Full range of motion. No adenopathy thyromegaly or neck vein distention. Cardiovascular examination reveals regular rhythm rate. S1-S2 normal. No S3 or S4. No discernible murmur noted. Lungs reveal clear breath sounds. Breath sounds are diminished bilaterally and scattered rhonchi heard throughout the lung craft bilaterally. Tracheostomy tube in place. Abdomen reveals an enterocutaneous fistula, normal bowel sounds. No tenderness. No masses. Extremities are intact. No cyanosis clubbing and there is edema in his left lower extremity and upper extremities bilaterally. The patient has a below-knee amputation his right lower extremity. Skin is without rash or lesion. Neurologic examination is brief but nonfocal. He does have significant muscle atrophy, and contractures. He has a right below the knee amputation. Generalized profound weakness. Weak cough. Weak motor functions. - Labs CBC & Chem 7: 09/13/24 08:14 09/13/24 05:31 Labs: Abnormal Lab Results - Last 24 Hours (Table) 09/12/24 09/12/24 09/12/24 Range/Units 05:13 07:15 09:28 WBC (4.50-10.00) 10*3/uL RBC 3.18 L (4.40-5.60) 10*6/uL Hgb 7.4 L D (13.0-17.0) g/dL Hct 27.1 L (39.6-50.0) % MCH 23.3 L (27.0-32.0) pg MCHC 27.3 L (32.0-37.0) g/dL Plt Count 93 L (140-440) 10*3/uL Lymphocytes # (0.90-5.00) 10*3/uL Eosinophils # (0.04-0.35) 10*3/uL Sodium (137-145) mmol/L Potassium (3.5-5.1) mmol/L Carbon Dioxide (22-30) mmol/L BUN (9-20) mg/dL Creatinine (0.66-1.25) mg/dL Glucose (74-99) mg/dL Calcium (8.4-10.2) mg/dL Total Protein (6.3-8.2) g/dL Albumin (3.5-5.0) g/dL Triglycerides 152.00 H (0.00-149.00) mg/dL Crossmatch See Detail 09/13/24 09/13/24 09/13/24 Range/Units 05:31 05:31 08:14 WBC 3.28 L 3.67 L (4.50-10.00) 10*3/uL RBC 2.53 L 2.61 L (4.40-5.60) 10*6/uL Hgb 5.8 L* D 6.1 L* (13.0-17.0) g/dL Hct 21.3 L 21.9 L (39.6-50.0) % MCH 22.9 L 23.4 L (27.0-32.0) pg MCHC 27.2 L 27.9 L (32.0-37.0) g/dL Plt Count 102 L 117 L (140-440) 10*3/uL Lymphocytes # 0.62 L (0.90-5.00) 10*3/uL Eosinophils # 0.01 L (0.04-0.35) 10*3/uL Sodium 148 H (137-145) mmol/L Potassium 3.2 L (3.5-5.1) mmol/L Carbon Dioxide 38 H (22-30) mmol/L BUN 26 H (9-20) mg/dL Creatinine 0.44 L (0.66-1.25) mg/dL Glucose 174 H (74-99) mg/dL Calcium 7.3 L (8.4-10.2) mg/dL Total Protein 6.1 L (6.3-8.2) g/dL Albumin 2.1 L (3.5-5.0) g/dL Triglycerides (0.00-149.00) mg/dL Crossmatch Assessment and Plan Plan: Acute on chronic hypoxic respiratory failure. The patient remains on a mechanical ventilator. The patient has bilateral pleural effusion and bilateral pneumonia with multidrug-resistant Pseudomonas aeruginosa. The patient is currently on ceftazidime/tazobactam and tobramycin combination. Repeat bronchoscopy on 09/07/2024 shows a positive Pseudomonas aeruginosa and corynebacterium in the BAL collected from the right lower lobe. The patient remains on a combination of ceftolozane /tazobactam and vancomycin. Respiratory status remains unchanged. There is also development of bilateral pleural effusion and patient is currently being diuresed. Chest x-ray findings are unchanged. Oxygenation remained stable. The patient remains on a mechanical ventilator. Septic shock, recovered Low-grade fever, currently afebrile Chronic hypoxemic and hypercapnic respiratory failure, ventilator dependent, on a home ventilator, S/P tracheostomy. The patient failed his home ventilator and the patient is currently on a mechanical ventilator assist-control mode. Chest x-ray was noted. No blood Available. History of severe tracheal stenosis, S/P tracheostomy. 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 History of DVT. History of CVA. History of right below-knee amputation. Previous history of asystole/cardiac arrest, 2021. History of Crohn's disease, S/P enterocutaneous fistula, diverting ileostomy. The patient remains on TPN for nutritional support. Chronic thrombocytopenia Plan: Continue ventilator support Keep the patient on an FiO2 of 50% with a PEEP of 8. [facility]. The patient has a trilogy ventilator and this can be tried at a later stage to assess the adequacy of his treatment while being on trilogy ventilator. Bronchoscopy was performed on 09/07/2024 and results are positive for Pseudomonas aeruginosa and corynebacterium in the right lower lobe bronchoalveolar lavage, and the patient is currently on a combination of ceftolozane/ tazobactam and vancomycin. Chest x-ray findings remain stable, unchanged Continues on TPN at 65 cc an hour, IV fluids or KVO Discontinue IV Lasix Discontinue stress dose hydrocortisone Lovenox 90 mg SQ every 8 hours Increase the fentanyl patch to 100 mcg on a daily basis for better pain control IV Protonix Monitor platelet count, the count is stable for now Monitor cardiac rhythm. No episodes of bradycardia echocardiogram from previous visits was normal. Cardiology will be consulted re garding the episodic AV block that the patient is encountering. Current cardiac rhythm is sinus and the patient is hemodynamically stable. Monitor ileostomy output Monitor hemoglobin Prognosis remains extremely poor due to above-mentioned comorbidities. Will continue to follow and make further recommendation based on his progress. This evaluation was done at 35 minutes. Time with Patient: Greater than 30
[2024-09-13 19:28] LABS: HCT 25.6 % (39.6-50.0); HGB 7.4 g/dL (13.0-17.0); MCH 24.3 pg (27.0-32.0); MCHC 28.9 g/dL (32.0-37.0); MCV 83.9 fL (80.0-97.0); Platelet Count 109 10*3/uL (140-440); RBC 3.05 10*6/uL (4.40-5.60); RDW 18.9 % (11.5-14.5); WBC 5.31 10*3/uL (4.50-10.00)
[2024-09-14 06:24] LABS: Basophils # (A) 0.01 10*3/uL (0.00-0.10); Basophils % (A) 0.2 %; Eosinophils # (A) 0.03 10*3/uL (0.04-0.35); Eosinophils % (A) 0.5 %; HCT 23.9 % (39.6-50.0); Lymphocytes # (A) 1.50 10*3/uL (0.90-5.00); Lymphocytes % (A) 23.2 %; MCH 24.0 pg (27.0-32.0); MCHC 28.9 g/dL (32.0-37.0); MCV 83.3 fL (80.0-97.0); Monocytes # (A) 0.70 10*3/uL (0.20-1.00); Monocytes % (A) 10.8 %; Neutrophils # (A) 4.18 10*3/uL (1.80-7.70); Neutrophils % (A) 64.5 %; Platelet Count 136 10*3/uL (140-440); RBC 2.87 10*6/uL (4.40-5.60); RDW 19.2 % (11.5-14.5); WBC 6.47 10*3/uL (4.50-10.00)
--- NOTE | 2024-09-14 06:28 | P.PN ---
Subjective 49-year-old patient, History of paraplegia, home vent at night, tracheostomy multiple admissions to the ICU for recurrent pneumonia. Patient's previous bronchial cultures been positive for Pseudomonas. He was discharged recently on IV cefepime. Also has a history of Crohn's disease with previous colectomy diverting ileostomy. History of DVT for which patient is on subcu Lovenox. Also had drug-resistant MRSA Pseudomonas. Patient currently does not have areas significant trach secretions. He has continues TPN. Has a right BKA. He does have slight movement in the right hand. Able to follow commands by nodding his head. 09/06/2024 Patient is seen and evaluated in ICU; remains on mechanical ventilator, actually his home ventilator, with settings of volume assist-control, rate 20, tidal volume 450, FiO2 45%, PEEP of 5. - patient has been refusing blood; no ABGs to. He is getting lactated Ringer's at 50 cc an hour, TPN at 65 cc an hour. - patient remains on the same antibiotics. - Labs reviewed which reveal white count 5.21, hemoglobin 7.9, hematocrit 27.5, and platelet count 64,000. Sodium 141, potassium 3.5, chlorides 102, CO2 32, BUN 25, and creatinine 0.35. Glucose is 152. Calcium is 8. Albumin is 2.1. -Chest x-ray is largely unchanged. Critical care managing mechanical ventilation; recommending to add scopolamine patch for increased secretion -Patient remains on Avycaz and tobramycin - Continue with current TPN 09/07 Patient remains in the ICU lethargic. He is s/p tracheostomy Overnight he was more hypoxic they have to increase PEEP to 8. Also has a lot of secretions when needed for secretions suctioning to try to become apneic per Staff. Patient currently receiving Avycaz and tobramycin. on TPN also 09/08 Patient remains in the ICU awake and alert status post tracheostomy. He has contractures of both upper and lower extremities He is complaining from pain in his lungs. He is status post flexible bronchoscopy and bronchoalveolar lavage yesterday. He has previous sputum culture positive for Pseudomonas currently covered with ceftazidime and tobramycin. He is also on Lovenox 90 mg 09/09 Patient still in the ICU on mechanical ventilation via tracheostomy. PEEP is 8.0 as is yesterday Also he spiked little fever to 100.7. IV vancomycin is added to tobramycin and ceftazidime He is getting also bronchoscopy follow-up culture results 09/10 Patient feels clinically the same, he still getting breathing via mechanical ventilation through his tracheostomy with PEEP of 8. Patient feels he is required suctioning through his tracheostomy tube. He denies chest pain or pain anywhere else he can communicate by head signs and gestures. Hemodynamically stable and afebrile hemoglobin 7.4 platelet count 73 Glucose is controlled potassium 3.3 He remains on broad-spectrum antibiotic Rocephin at this time tobramycin and IV vancomycin added yesterday because he had low-grade fever. He is getting TPN. IV fluid Ringer lactate was stopped and patient was started on IV Lasix 20 mg 3 times a day continue with therapeutic dose of Lovenox as well 09/11 Patient remains in the ICU Remains on mechanical ventilation via tracheostomy He status post bronchoalveolar lavage 2 days ago, culture is growing Pseudomonas aeruginosa and corynebacterium Patient remains on broad-spectrum antibiotics with IV vancomycin, tobramycin, ceftazidime On IV Lasix also is on therapeutic dose of Lovenox 90 mg twice daily No IV fluids 09/12 Patient remains in the ICU Clinically close to what he was over the last 2 days still getting oxygen via his tracheostomy He remains on broad-spectrum antibiotic with Ceftin this time and IV vancomycin. Also he is on IV Lasix 20 mg and therapeutic dose of Lovenox. 09/13 Patient remains in the ICU on mechanical ventilation via tracheostomy Patient looks better today, he breathing better Less secretion Fentanyl patch increased Objective - Vital Signs Vital signs: Vital Signs Temp 97.7 F 09/13/24 08:00 Pulse 78 09/13/24 08:00 Resp 21 09/13/24 08:00 BP 93/44 09/13/24 08:00 Pulse Ox 99 09/13/24 08:00 FiO2 50 09/13/24 08:49 Intake & Output 09/12/24 09/13/24 09/13/24 18:59 06:59 18:59 Intake Total 2625 1105 85 Output Total 2284 2034 950 Balance 340 -230 -865 Weight 98 kg Intake: IV 1110 1105 85 0.9 110 130 10 Ceftazidime/Avibactam 2.5 100 gm In Sodium Chloride 0. 9% 100 ml @ 50 mls/hr IVPB Q8HR [facility] Rx#: [id number] Mvi, Adult No.4 with Vit 900 975 75 K 10 ml Trace (Conc-1Ml/ Dose) 1 ml Magnesium Sulfate gm 2 gm Sodium Phosphate 30 mmol Potassium Chloride 80 meq Sodium Acetate 90 meq Calcium Gluconate 0.5 gm In Amino Acids 5 %/ Dextrose 20 % 1,000 ml @ 75 mls/hr IV .BY DURATION [facility] Rx#:[id number] Intake, IV Titration 1115 Amount Mvi, Adult No.4 with Vit 1115 K 10 ml Trace (Conc-1Ml/ Dose) 1 ml Magnesium Sulfate gm 2 gm Sodium Phosphate 30 mmol Potassium Chloride 80 meq Sodium Acetate 90 meq Calcium Gluconate 0.5 gm In Amino Acids 5 %/ Dextrose 20 % 1,000 ml @ 75 mls/hr IV .BY DURATION [facility] Rx#:[id number] Oral 400 Output: Urine 1785 1285 250 Stool 500 750 700 Other: Voiding Method Indwelling Catheter Indwelling Catheter Indwelling Catheter - Exam GENERAL: The patient is alert and oriented x3, not in any acute distress. Well developed, well nourished. HEENT: Pupils are round and equally reacting to light. EOMI. No scleral icterus. No conjunctival pallor. Normocephalic, atraumatic. No pharyngeal erythema. No thyromegaly. CARDIOVASCULAR: S1 and S2 present. No murmurs, rubs, or gallops. -PULMONARY: Chest is clear to auscultation, no wheezing , no crackles. S/p tracheostomy -ABDOMEN: Soft, nontender, nondistended, normoactive bowel sounds. No palpable organomegaly. S/p PEG tube MUSCULOSKELETAL: No joint swelling or deformity. -EXTREMITIES: No cyanosis, clubbing, or pedal edema. Status post right BKA NEUROLOGICAL: Gross neurological examination did not reveal any focal deficits. SKIN: No rashes. no petechiae. - Labs CBC & Chem 7: 09/13/24 19:17 09/13/24 17:29 Labs: Abnormal Lab Results - Last 24 Hours (Table) 09/12/24 09/12/24 09/13/24 Range/Units 07:15 09:28 05:31 WBC (4.50-10.00) 10*3/uL RBC 3.18 L (4.40-5.60) 10*6/uL Hgb 7.4 L D (13.0-17.0) g/dL Hct 27.1 L (39.6-50.0) % MCH 23.3 L (27.0-32.0) pg MCHC 27.3 L (32.0-37.0) g/dL Plt Count 93 L (140-440) 10*3/uL Lymphocytes # (0.90-5.00) 10*3/uL Eosinophils # (0.04-0.35) 10*3/uL Sodium 148 H (137-145) mmol/L Potassium 3.2 L (3.5-5.1) mmol/L Carbon Dioxide 38 H (22-30) mmol/L BUN 26 H (9-20) mg/dL Creatinine 0.44 L (0.66-1.25) mg/dL Glucose 174 H (74-99) mg/dL Calcium 7.3 L (8.4-10.2) mg/dL Total Protein 6.1 L (6.3-8.2) g/dL Albumin 2.1 L (3.5-5.0) g/dL Crossmatch See Detail 09/13/24 09/13/24 Range/Units 05:31 08:14 WBC 3.28 L 3.67 L (4.50-10.00) 10*3/uL RBC 2.53 L 2.61 L (4.40-5.60) 10*6/uL Hgb 5.8 L* D 6.1 L* (13.0-17.0) g/dL Hct 21.3 L 21.9 L (39.6-50.0) % MCH 22.9 L 23.4 L (27.0-32.0) pg MCHC 27.2 L 27.9 L (32.0-37.0) g/dL Plt Count 102 L 117 L (140-440) 10*3/uL Lymphocytes # 0.62 L (0.90-5.00) 10*3/uL Eosinophils # 0.01 L (0.04-0.35) 10*3/uL Sodium (137-145) mmol/L Potassium (3.5-5.1) mmol/L Carbon Dioxide (22-30) mmol/L BUN (9-20) mg/dL Creatinine (0.66-1.25) mg/dL Glucose (74-99) mg/dL Calcium (8.4-10.2) mg/dL Total Protein (6.3-8.2) g/dL Albumin (3.5-5.0) g/dL Crossmatch Assessment and Plan Assessment: - basal pneumonia. Previous admission sputum was positive for Pseudomonas aeruginosa-: Clinically responding on IV Avycaz-.. IV tobramycin . No fever close to 48 hours Being followed by pulmonary, and ID -Loose stools negative for C. difficile Will add Metamucil to bulk up the stool - Septic shock: Slow to response Patient on Levophed. Vasopressin - Chronic hypoxic and hypercapnic respiratory failure, vent dependent at night at home - Tracheostomy with trach collar - Normocytic anemia of chronic disease and hospital-acquired anemia from blood draws Follow H&H - Thrombocytopenia likely from sepsis Follow - Right below-knee amputation - Chronic quadriparesis. Including left foot drop. Left arm contracture. Some right hand contracture. Some movement in the right arm - Crohn's disease with double barrel ostomy bag in place since 09/2021 - TPN - Full code Plan: Continue with antibiotics, currently on Avycaz vancomycin was added Continue with TPN Continue with Ringer lactate Patient on therapeutic dose of Lovenox Several consultants on the case including pulmonary and infectious disease team Labs and medication were reviewed.. Continue same treatment. Continue with symptomatic treatment. Resume home medication. Monitor labs and vitals. DVT and GI prophylaxis. Further recommendations as per clinical course of the patient DVT prophylaxis: Subcutaneous Lovenox GI Prophylaxis: Protonix Prognosis is guarded
[2024-09-14 06:30] LABS: HGB 6.9 g/dL (13.0-17.0)
[2024-09-14 06:39] LABS: ALT 27 U/L (4-49); AST 36 U/L (17-59); African American GFR (CKD) >90 (>60 ml/min/1.73 sqM); Albumin 2.3 g/dL (3.5-5.0); Alkaline Phosphatase 86 U/L (38-126); Anion Gap 4 mmol/L; Blood Urea Nitrogen 26 mg/dL (9-20); Calcium 7.2 mg/dL (8.4-10.2); Carbon Dioxide 36 mmol/L (22-30); Chloride 107 mmol/L (98-107); Glucose 157 mg/dL (74-99); Magnesium 2.1 mg/dL (1.6-2.3); Non-African American GFR(CKD) >90 (>60 ml/min/1.73 sqM); Potassium 4.0 mmol/L (3.5-5.1); Sodium 147 mmol/L (137-145); Total Protein 6.7 g/dL (6.3-8.2)
--- NOTE | 2024-09-14 07:42 | XR ---
EXAMINATION TYPE: XR chest 1V portable DATE OF EXAM: 09/14/2024 5:46 AM COMPARISON: Chest radiograph from one day prior. CLINICAL INDICATION: Male, 49 years old with history of trached on ventilator; [facility] TECHNIQUE: XR chest 1V portable Frontal view of the chest. FINDINGS: Lungs/Pleura: No evidence of focal consolidation or pneumothorax. Blunting of the costophrenic angles is present. Pulmonary vascularity: Pulmonary vascular congestion. Heart/mediastinum: Cardiomediastinal silhouette is enlarged. Musculoskeletal: No acute osseous pathology. Right neck surgical clips. Other findings: None Lines/Tubes: Tracheostomy cannula tip projecting over the trachea. Left central venous catheter with distal tip at the cavoatrial junction. IMPRESSION: Similar multifocal airspace opacities and bilateral pleural effusions. [facility], , 09/14/2024 7:39 AM
--- NOTE | 2024-09-14 12:33 | P.PN ---
Subjective Progress Note Date: 09/14/24 Principal diagnosis: Acute on chronic hypoxic respiratory failure secondary to bilateral pneumonia secondary to multidrug resistant Pseudomonas aeruginosa This is a 49-year-old white male familiar to my service, history of paraplegia, home vent dependent, history of tracheostomy, patient had multiple admissions to the ICU for recurrent episodes of pneumonia and respiratory failure requiring ventilatory support. On his last admission patient was eventually discharged home on a home ventilator, and this was back on 08/04/2024. Patient was discharged home with a PICC line, patient was in the ER yesterday on 08/28 for abnormal labs mostly low potassium and low sodium discharged home however he came back today complaining of shortness of breath, has been ventilator depende nt all along. Chest x-ray showed basically bibasilar opacities/atelectasis, doubt pneumonia, the findings in the left lower lobe are chronic. Patient did have previous history of pneumonia involving the left lower lobe and he had multiple bronchoscopies in the past. Bronchial cultures and sputum cultures have been positive in the past for mostly Pseudomonas aeruginosa. Patient was seen in the ER today, and he is already on cefepime for empiric coverage for potential left lower lobe pneumonia, patient had abnormal electrolytes with relatively low sodium low potassium, no leukocytosis, normal renal profile, blood pressure was soft, and he was given fluid boluses. Lactic acid was 2.1, D-dimer is normal, patient was admitted, and this consult was initiated. 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 09/10/2024, patient is awake and alert and communicating. Continues to have on and off episodes of shortness of breath while being on a mechanical ventilator. Oxygenation is borderline and the patient's pulse ox remains low. Unable to obtain any blood gases as the patient has declined arterial blood draws. He is on assist-control mode rate of 20, tidal volume of 450, FiO2 of 70% with a PEEP of 10. Remains on TPN at rate of 35 cc an hour and lactated Ringer at rate of 50 cc an hour. Fluid balance is +2.6 L over the past 24 hours.the white cell count is 6.3, hemoglobin is at 7.4, platelet count is a 73 and the patient remains on therapeutic dose of Lovenox. The patient's sodium levels at 143, K is at 3.3, bicarb is at 40 with a BUN of 21 and a creatinine of 0.8. Blood sugar is 140. The most recent lavage from the right lower lobe was positive for Pseudomonas aeruginosa and corynebacterium. The patient remains on a combination of ceftazidime antibacterial combination, tobramycin and IV vanc omycin. Output from ileostomy is in order of 800 cc over the past 8 hours. Remains on IV Lasix. Chest x-ray is unchanged and it shows bilateral pulmonary infiltrates, diffuse increased interstitial lung markings, lines and catheters are in place, tracheostomy tube is in place. 09/11/2024, the patient is stable, awake and alert and communicating. Remains on TPN for nutritional support with rate of 75 cc an hour. Remains on the same mechanical ventilator settings and the patient remains on assist-control mode at rate of 20, tidal volume of 450, FiO2 of 60% with a PEEP of 8. Fluid balance is -50 cc over the past 24 hours and the patient remains on IV Lasix 20 mg every 8 hours. The biotic coverage remains unchanged and the patient remains on a combination of ceftazidime IV Bactrim, tobramycin and vancomycin. The white cell count is at 4.7 with a hemoglobin of 7.1 and a platelet count of 89. BUN is 20 with a creatinine of 0.25. Sodium levels at 142. Serum iron levels at 16. Vancomycin trough is at 17. Follow-up chest x-ray from today shows stable bilateral pulmonary filtrates and pleural effusions bilaterally. Tracheostomy tube remains in good location. The patient continues to have high output through the ileostomy. Currently afebrile. No cardiac arrhythmias have been noted. 09/12/2024, patient is resting comfortably in bed. Remains on a mechanical ventilator. Unable to wean. Chest x-ray still showing bilateral pulmonary filtrates consistent with pneumonia. The patient is on assist-control mode at rate of 20, tidal volume of 450, FiO2 of 50% and a PEEP of 8. Remains negative fluid balance as the patient is being diuresed with IV Lasix. Fluid balance is -1 L over the past 24 hours. Remains on Lasix 20 mg IV push every 8 hours. Hemoglobin from this morning was 5.8. Repeat hemoglobin came back at 7.4. Platelet counts are stable. No evidence of any GI bleeding. Remains on Lovenox therapeutic dose. Remains on TPN at rate of 75 cc an hour. White cell count is at 5, platelet count is at 93, BUN is 25 with a creatinine 0.4. Sodium levels at 144 and a potassium level is at 3.6. Ileostomy still functioning. Remains on broad-spectrum antibiotics. Remains on ceftolozane/tazobactam. Remains on vancomycin. Remains on stress dose hydrocortisone. 09/13/2024, the patient is being seen for a follow-up. No change in his condition over the past 24 hours. Remains on a mechanical ventilator. Awake and alert and communicating. Started on fentanyl patch and his pain is under better control and the patient is using fentanyl patch 75 mcg every 72 hours. Remains assist-control mechanical ventilation at rate of 20, tidal volume of 450, FiO2 50% with a PEEP of 8. Chest x-ray from today shows stable bilateral pulmonary infiltrates, no significant change compared to yesterday and the tracheostomy tube remains in place. The patient continues to have multifocal airspace disease. Fluid balance is +30 cc over the past 24 hours. TPN is r unning at a rate of 75 cc an hour. Afebrile. Hemoglobin in this morning was at 5.8. Recheck was 6.1. The platelet count is 817. Sodium is at 148, potassium 3.2, BUN 26 with a creatinine of 0.44. Serum bicarb is at 38. The patient has a triglyceride level of 152. Remains on ceftolozane tazobactam and vancomycin. Seen today on 09/14/24, patient remains intubated, mechanically ventilated, verenice usable, follows simple instructions, he is on assist-control rate of 20 tidal volume 450 FiO2 50% and PEEP of 6 patient is spiking temps he had a temp as high as 102 remains on Zerbaxa and vancomycin his hemoglobin is low today 6.9 will give a unit of packed RBCs still requiring norepinephrine at 0.12 mcg/kg/min he is also on TPN at 75 cc/h. Not much of a change noted in his overall clinical picture, patient remains quite ill and septic. Labs today show WBC of 6.4 hemoglobin 6.9 electrolytes are normal sodium is 147 renal profile is normal, chest x-ray continues to show multifocal airspace opacities and small bilateral pleural effusions. Objective - Vital Signs Vital signs: Vital Signs Temp 98.8 F 09/14/24 08:15 Pulse 100 09/14/24 11:45 Resp 23 09/14/24 11:45 BP 166/76 09/14/24 11:45 Pulse Ox 91 L 09/14/24 11:45 FiO2 50 09/14/24 09:05 Intake & Output 09/13/24 09/14/24 09/14/24 18:59 06:59 18:59 Intake Total 2434 1271.965 90.42 Output Total 4305 525 75 Balance -1871 746.965 15.42 Weight 98.2 kg Intake: IV 1020 935 85 0.9 120 110 10 Mvi, Adult No.4 with Vit 900 825 75 K 10 ml Trace (Conc-1Ml/ Dose) 1 ml Magnesium Sulfate gm 2 gm Sodium Phosphate 30 mmol Potassium Chloride 80 meq Sodium Acetate 90 meq Calcium Gluconate 0.5 gm In Amino Acids 5 %/ Dextrose 20 % 1,000 ml @ 75 mls/hr IV .BY DURATION [facility] Rx#:[id number] Intake, IV Titration 1104 336.965 5.42 Amount Magnesium Sulfate gm 2 gm 1104 Sodium Phosphate 30 mmol Potassium Chloride 80 meq Sodium Acetate 90 meq Calcium Gluconate 0.5 gm In Amino Acids 5 %/ Dextrose 20 % 1,000 ml @ 75 mls/hr IV .BY DURATION [facility] Rx#:[id number] Norepinephrine 8 mg In 336.965 5.42 Sodium Chloride 0.9% 250 ml @ 0.03 MCG/KG/MIN 5. 003 mls/hr IV .Q24H [facility] Rx#:[id number] Oral 0 Blood Product 310 Rc As-1 Unit 310 [id number] Output: Urine 1705 525 75 Stool 2600 Other: Voiding Method Indwelling Catheter Indwelling Catheter - Exam GENERAL EXAM: 49-year-old white male intubated mechanically ventilated patient has a chronic tracheostomy HEAD: Normocephalic. EYES: Normal reaction of pupils, equal size. NOSE: Clear with pink turbinates. THROAT: Tracheostomy tube secured in place. No erythema or exudates. NECK: No masses, no JVD. CHEST: No chest wall deformity. LUNGS: Equal air entry with coarse rhonchi bilaterally. CVS: S1 and S2 normal with no audible murmur, regular rhythm. ABDOMEN: Enterocutaneous fistula over the abdominal wall. No hepatosplenomegaly, normal bowel sounds. SPINE: No scoliosis or deformity SKIN: No rashes CENTRAL NERVOUS SYSTEM: No focal deficits, except for paraplegia. EXTREMITIES: Extensive muscle atrophy. Contractures. There is no peripheral edema. No clubbing, no cyanosis. Peripheral pulses are intact. Right below- knee amputation is noted. - Labs CBC & Chem 7: 09/14/24 05:41 09/14/24 05:41 Labs: Abnormal Lab Results - Last 24 Hours (Table) 09/12/24 09/13/24 09/14/24 Range/Units 07:15 19:17 05:41 RBC 3.05 L (4.40-5.60) 10*6/uL Hgb 7.4 L (13.0-17.0) g/dL Hct 25.6 L (39.6-50.0) % MCH 24.3 L (27.0-32.0) pg MCHC 28.9 L (32.0-37.0) g/dL Plt Count 109 L (140-440) 10*3/uL Immature Gran # (0.00-0.04) 10*3/uL Eosinophils # (0.04-0.35) 10*3/uL Sodium 147 H (137-145) mmol/L Carbon Dioxide 36 H (22-30) mmol/L BUN 26 H (9-20) mg/dL Creatinine 0.31 L (0.66-1.25) mg/dL Glucose 157 H (74-99) mg/dL Calcium 7.2 L (8.4-10.2) mg/dL Total Bilirubin 3.8 H (0.2-1.3) mg/dL Albumin 2.3 L (3.5-5.0) g/dL Crossmatch See Detail 09/14/24 Range/Units 05:41 RBC 2.87 L (4.40-5.60) 10*6/uL Hgb 6.9 L* (13.0-17.0) g/dL Hct 23.9 L (39.6-50.0) % MCH 24.0 L (27.0-32.0) pg MCHC 28.9 L (32.0-37.0) g/dL Plt Count 136 L (140-440) 10*3/uL Immature Gran # 0.05 H (0.00-0.04) 10*3/uL Eosinophils # 0.03 L (0.04-0.35) 10*3/uL Sodium (137-145) mmol/L Carbon Dioxide (22-30) mmol/L BUN (9-20) mg/dL Creatinine (0.66-1.25) mg/dL Glucose (74-99) mg/dL Calcium (8.4-10.2) mg/dL Total Bilirubin (0.2-1.3) mg/dL Albumin (3.5-5.0) g/dL Crossmatch Microbiology - Last 24 Hours (Table) 09/07/24 10:40 Gram Stain - Final Bronchial Washings - Random Bronchial Washings Culture - Preliminary Pseudomonas aeruginosa Corynebacterium striatum group Assessment and Plan Assessment: Impression: Acute on chronic hypoxic respiratory failure still intubated and mechanically ventilated, multifactorial but mostly related to multidrug-resis tant Pseudomonas aeruginosa pneumonia. Antibiotics are being addressed by infectious disease on the case. Septic shock, secondary to pneumonia patient is on Zerbaxa and vancomycin. Chronic hypoxic and hypercapnic respiratory failure, patient is ventilator dependent, on home ventilator. History of severe tracheal stenosis History of tracheostomy History of recurrent pneumonias involving left lower lobe Tracheobronchomalacia History of DVT History of CVA History of right below-knee amputation History of asystole/cardiac arrest 2021. 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 Patient is maintained mostly on TPN. Recommendation: Continue to monitor in the ICU Continue present antibiotics Continue ventilatory support Zerbaxa, he is also on vancomycin. Continue hemodynamic support continue norepinephrine GI and DVT prophylaxis: Protonix and Lovenox Nutrition support/TPN patient is chronically on TPN Monitor electrolytes daily and address accordingly Continue bronchodilators/DuoNeb updrafts 4 times daily and as needed Patient is critically ill and septic requiring pressors and requiring ventilatory support, unfortunately his prognosis is extremely poor and guarded and not much improvement noted in his overall status over the last few weeks. Critical care time is 35 minutes We will continue to follow Time with Patient: Greater than 30
--- NOTE | 2024-09-14 13:59 | P.PN ---
Subjective Progress Note Date: 09/14/24 49-year-old patient, History of paraplegia, home vent at night, tracheostomy multiple admissions to the ICU for recurrent pneumonia. Patient's previous bronchial cultures been positive for Pseudomonas. He was discharged recently on IV cefepime. Also has a history of Crohn's disease with previous colectomy diverting ileostomy. History of DVT for which patient is on subcu Lovenox. Also had drug-resistant MRSA Pseudomonas. Patient currently does not have areas significant trach secretions. He has co ntinues TPN. Has a right BKA. He does have slight movement in the right hand. Able to follow commands by nodding his head. 09/06/2024 Patient is seen and evaluated in ICU; remains on mechanical ventilator, actually his home ventilator, with settings of volume assist-control, rate 20, tidal volume 450, FiO2 45%, PEEP of 5. - patient has been refusing blood; no ABGs to. He is getting lactated Ringer's at 50 cc an hour, TPN at 65 cc an hour. - patient remains on the same antibiotics. - Labs reviewed which reveal white count 5.21, hemoglobin 7.9, hematocrit 27.5, and platelet count 64,000. Sodium 141, potassium 3.5, chlorides 102, CO2 32, BUN 25, and creatinine 0.35. Glucose is 152. Calcium is 8. Albumin is 2.1. -Chest x-ray is largely unchanged. Critical care managing mechanical ventilation; recommending to add scopolamine patch for increased secretion -Patient remains on Avycaz and tobramycin - Continue with current TPN 09/07 Patient remains in the ICU lethargic. He is s/p tracheostomy Overnight he was more hypoxic they have to increase PEEP to 8. Also has a lot of secretions when needed for secretions suctioning to try to become apneic per Staff. Patient currently receiving Avycaz and tobramycin. on TPN also 09/08 Patient remains in the ICU awake and alert status post tracheostomy. He has contractures of both upper and lower extremities He is complaining from pain in his lungs. He is status post flexible bronchoscopy and bronchoalveolar lavage yesterday. He has previous sputum culture positive for Pseudomonas currently covered with ceftazidime and tobramycin. He is also on Lovenox 90 mg 09/09 Patient still in the ICU on mechanical ventilation via tracheostomy. PEEP is 8.0 as is yesterday Also he spiked little fever to 100.7. IV vancomycin is added to tobramycin and ceftazidime He is getting also bronchoscopy follow-up culture results 09/10 Patient feels clinically the same, he still getting breathing via mechanical ventilation through his tracheostomy with PEEP of 8. Patient feels he is required suctioning through his tracheostomy tube. He d enies chest pain or pain anywhere else he can communicate by head signs and gestures. Hemodynamically stable and afebrile hemoglobin 7.4 platelet count 73 Glucose is controlled potassium 3.3 He remains on broad-spectrum antibiotic Rocephin at this time tobramycin and IV vancomycin added yesterday because he had low-grade fever. He is getting TPN. IV fluid Ringer lactate was stopped and patient was started on IV Lasix 20 mg 3 times a day continue with therapeutic dose of Lovenox as well 09/11 Patient remains in the ICU Remains on mechanical ventilation via tracheostomy He status post bronchoalveolar lavage 2 days ago, culture is growing Pseudomonas aeruginosa and corynebacterium Patient remains on broad-spectrum antibiotics with IV vancomycin, tobramycin, ceftazidime On IV Lasix also is on therapeutic dose of Lovenox 90 mg twice daily No IV fluids 09/12 Patient remains in the ICU Clinically close to what he was over the last 2 days still getting oxygen via his tracheostomy He remains on broad-spectrum antibiotic with Ceftin this time and IV vancomycin. Also he is on IV Lasix 20 mg and therapeutic dose of Lovenox. 09/13 Patient remains in the ICU on mechanical ventilation via tracheostomy Patient looks better today, he breathing better Less secretion Fentanyl patch increased 09/14. Patient seen and examined. Patient continues to be on mechanical ventilation via trach mask. Currently on TPN. Currently on IV Zerbaxa and vancomycin REVIEW OF SYSTEMS: Review of system cannot be obtained as patient currently mechanical ventilation via trach mask PHYSICAL EXAMINATION: GENERAL: The patient is alert, ill looking HEENT: Pupils are round and equally reacting to light. EOMI. No scleral icterus. No conjunctival pallor. Normocephalic, atraumatic. No pharyngeal erythema. No thyromegaly. Trach collar seen CARDIOVASCULAR: S1 and S2 present. No murmurs, rubs, or gallops. PULMONARY: Coarse breath sounds bilaterally, no wheeze ABDOMEN: Soft, ostomy seen MUSCULOSKELETAL: No joint swelling or deformity. EXTREMITIES: No cyanosis, clubbing, or pedal edema. NEUROLOGICAL: Gross neurological examination did not reveal any focal deficits. SKIN: No rashes. Assessment and plan Acute on chronic hypoxic respiratory failure. Bilateral pleural effusion Chronic hypoxic and hypercapnic respiratory failure, vent dependent at night at home Bacterial pneumonia. History of severe tracheal stenosis, S/P tracheostomy. History of recurrent pneumonia, with cultures indicating multidrug-resistant Pseudomonas aeruginosa - Septic shock: Previous admission sputum was positive for Pseudomonas aeruginosa-: Clinically responding Repeat bronchoscopy on 09/07/2024 shows a positive Pseudomonas aeruginosa and corynebacterium in the BAL collected from the right lower lobe Currently on IV Zerbaxa, vancomycin Being followed by pulmonary, and ID -Loose stools negative for C. difficile Continue Metamucil - Normocytic anemia of chronic disease and hospital-acquired anemia from blood draws Follow H&H - Thrombocytopenia likely from sepsis Follow - Chronic quadriparesis. Including left foot drop. Left arm contracture. Some right hand contracture. Some movement in the right arm - Crohn's disease with double barrel ostomy bag in place since 09/2021 Continue TPN History of DVT. History of CVA. History of right below-knee amputation. Previous history of asystole/cardiac arrest, 2021. Continue home med Labs and medication were reviewed.. Continue same treatment. Continue with symptomatic treatment. Resume home medication. Monitor labs and vitals. DVT and GI prophylaxis. Further recommendations as per clinical course of the patient Dictation was produced using [employer] dictation software. please excuse any gra mmatical, word or spelling errors. Objective - Vital Signs Vital signs: Vital Signs Temp 102.0 F H 09/13/24 20:00 Pulse 78 09/14/24 09:15 Resp 20 09/14/24 08:00 BP 107/46 09/14/24 08:00 Pulse Ox 95 09/14/24 08:00 FiO2 50 09/14/24 09:05 Intake & Output 09/13/24 09/14/24 09/14/24 18:59 06:59 18:59 Intake Total 2434 1271.965 90.42 Output Total 4305 525 75 Balance -1871 746.965 15.42 Weight 98.2 kg Intake: IV 1020 935 85 0.9 120 110 10 Mvi, Adult No.4 with Vit 900 825 75 K 10 ml Trace (Conc-1Ml/ Dose) 1 ml Magnesium Sulfate gm 2 gm Sodium Phosphate 30 mmol Potassium Chloride 80 meq Sodium Acetate 90 meq Calcium Gluconate 0.5 gm In Amino Acids 5 %/ Dextrose 20 % 1,000 ml @ 75 mls/hr IV .BY DURATION ANNIE Rx#:[id number] Intake, IV Titration 1104 336.965 5.42 Amount Magnesium Sulfate gm 2 gm 1104 Sodium Phosphate 30 mmol Potassium Chloride 80 meq Sodium Acetate 90 meq Calcium Gluconate 0.5 gm In Amino Acids 5 %/ Dextrose 20 % 1,000 ml @ 75 mls/hr IV .BY DURATION ANNIE Rx#:[id number] Norepinephrine 8 mg In 336.965 5.42 Sodium Chloride 0.9% 250 ml @ 0.03 MCG/KG/MIN 5. 003 mls/hr IV .Q24H ANNIE Rx#:[id number] Oral 0 Blood Product 310 Rc As-1 Unit 310 [id number] Output: Urine 1705 525 75 Stool 2600 Other: Voiding Method Indwelling Catheter Indwelling Catheter - Labs CBC & Chem 7: 09/14/24 05:41 09/14/24 05:41 Labs: Abnormal Lab Results - Last 24 Hours (Table) 09/12/24 09/13/24 09/14/24 Range/Units 07:15 19:17 05:41 RBC 3.05 L (4.40-5.60) 10*6/uL Hgb 7.4 L (13.0-17.0) g/dL Hct 25.6 L (39.6-50.0) % MCH 24.3 L (27.0-32.0) pg MCHC 28.9 L (32.0-37.0) g/dL Plt Count 109 L (140-440) 10*3/uL Immature Gran # (0.00-0.04) 10*3/uL Eosinophils # (0.04-0.35) 10*3/uL Sodium 147 H (137-145) mmol/L Carbon Dioxide 36 H (22-30) mmol/L BUN 26 H (9-20) mg/dL Creatinine 0.31 L (0.66-1.25) mg/dL Glucose 157 H (74-99) mg/dL Calcium 7.2 L (8.4-10.2) mg/dL Total Bilirubin 3.8 H (0.2-1.3) mg/dL Albumin 2.3 L (3.5-5.0) g/dL Crossmatch See Detail 09/14/24 Range/Units 05:41 RBC 2.87 L (4.40-5.60) 10*6/uL Hgb 6.9 L* (13.0-17.0) g/dL Hct 23.9 L (39.6-50.0) % MCH 24.0 L (27.0-32.0) pg MCHC 28.9 L (32.0-37.0) g/dL Plt Count 136 L (140-440) 10*3/uL Immature Gran # 0.05 H (0.00-0.04) 10*3/uL Eosinophils # 0.03 L (0.04-0.35) 10*3/uL Sodium (137-145) mmol/L Carbon Dioxide (22-30) mmol/L BUN (9-20) mg/dL Creatinine (0.66-1.25) mg/dL Glucose (74-99) mg/dL Calcium (8.4-10.2) mg/dL Total Bilirubin (0.2-1.3) mg/dL Albumin (3.5-5.0) g/dL Crossmatch
--- NOTE | 2024-09-15 01:23 | XR ---
EXAM: XR Chest, 1 View CLINICAL HISTORY: SOB TECHNIQUE: Frontal view of the chest. COMPARISON: 07/24/2024 FINDINGS: Lungs: Moderate to large amount of airspace opacities throughout both lungs, slightly more on the left, increased. Pleural space: Suspect persistent small bilateral pleural effusions. Mediastinum: Unchanged. Bones/joints: No acute findings. Soft tissues: Cluster of surgical clips over right neck, unchanged. Tubes, lines and devices: Tracheostomy tube and left central venous catheter are unchanged. IMPRESSION: 1. Moderate to large amount of airspace disease throughout both lungs, slightly more on the left, increased. 2. Suspect persistent small bilateral pleural effusions.
--- NOTE | 2024-09-15 06:36 | XR ---
EXAMINATION TYPE: XR chest 1V portable DATE OF EXAM: 09/15/2024 5:25 AM COMPARISON: Chest radiograph from one day prior. CLINICAL INDICATION: Male, 49 years old with history of Mechanical ventilation; [facility] TECHNIQUE: XR chest 1V portable Frontal view of the chest. FINDINGS: Lungs/Pleura: No evidence of focal consolidation or pneumothorax. Blunting of the costophrenic angles is present. Pulmonary vascularity: Pulmonary vascular congestion. Heart/mediastinum: Cardiomediastinal silhouette is enlarged. Musculoskeletal: No acute osseous pathology. Right neck surgical clips. Other findings: None Lines/Tubes: Tracheostomy cannula tip projecting over the trachea. Left central venous catheter with distal tip at the cavoatrial junction. IMPRESSION: Similar multifocal airspace opacities and bilateral pleural effusions. [facility], , 09/15/2024 6:34 AM
--- NOTE | 2024-09-15 09:52 | P.PN ---
Subjective Progress Note Date: 09/14/24 Principal diagnosis: Reason for follow-up is sepsis and pneumonia Patient is a 49-year-old male with a past medical history significant for CVA TIA DVT pneumonia history of complicated Crohn's disease in this patient who did have multiple abdominal surgeries patient also have a tracheostomy has been brought to the hospital with Generalized weakness did have a fever c oncerning for pneumonia on today's evaluation that is 09/14/2024, patient did spike a fever of 102 d egrees following hydralazine and however the patient has been afebrile this morning, patient is breathing comfortably and is currently intubated on vent through the trach FiO2 stable at 60% hemodynamic stable not requiring any pressor support. Patient did have a white count of 6.47, creatinine 0.31 Objective - Vital Signs Vital signs: Vital Signs Temp 98.3 F 09/14/24 16:00 Pulse 86 09/14/24 16:00 Resp 20 09/14/24 16:00 BP 108/47 09/14/24 16:00 Pulse Ox 93 L 09/14/24 16:00 FiO2 40 09/14/24 16:00 Intake & Output 09/13/24 09/14/24 09/14/24 18:59 06:59 18:59 Intake Total 2434 5460.925 1610.588 Output Total 4305 525 2370 Balance -1871 746.965 394.588 Weight 98.2 kg Intake: IV 1020 935 165 0.9 120 110 90 Mvi, Adult No.4 with Vit 900 825 75 K 10 ml Trace (Conc-1Ml/ Dose) 1 ml Magnesium Sulfate gm 2 gm Sodium Phosphate 30 mmol Potassium Chloride 80 meq Sodium Acetate 90 meq Calcium Gluconate 0.5 gm In Amino Acids 5 %/ Dextrose 20 % 1,000 ml @ 75 mls/hr IV .BY DURATION ANNIE Rx#:[id number] Intake, IV Titration 1104 336.965 99.588 Amount Magnesium Sulfate gm 2 gm 1104 Sodium Phosphate 30 mmol Potassium Chloride 80 meq Sodium Acetate 90 meq Calcium Gluconate 0.5 gm In Amino Acids 5 %/ Dextrose 20 % 1,000 ml @ 75 mls/hr IV .BY DURATION ANNIE Rx#:[id number] Norepinephrine 8 mg In 336.965 99.588 Sodium Chloride 0.9% 250 ml @ 0.03 MCG/KG/MIN 5. 003 mls/hr IV .Q24H [facility] Rx#:[id number] Oral 0 2500 Blood Product 310 0 Rc As-1 Unit 310 [id number] Rc As-1 Unit 0 [id number] Output: Urine 1705 525 470 Stool 2600 1900 Other: Voiding Method Indwelling Catheter Indwelling Catheter Indwelling Catheter - Exam GENERAL DESCRIPTION: Middle-age male intubated on the vent RESPIRATORY SYSTEM: Unlabored breathing , decreased breath sounds at bases HEART: S1 S2 regular rate and rhythm , ABDOMEN: Soft , no tenderness EXTREMITIES: Swelling to the leg - Labs CBC & Chem 7: 09/14/24 05:41 09/14/24 05:41 Labs: Abnormal Lab Results - Last 24 Hours (Table) 09/12/24 09/13/24 09/14/24 Range/Units 07:15 19:17 05:41 RBC 3.05 L (4.40-5.60) 10*6/uL Hgb 7.4 L (13.0-17.0) g/dL Hct 25.6 L (39.6-50.0) % MCH 24.3 L (27.0-32.0) pg MCHC 28.9 L (32.0-37.0) g/dL Plt Count 109 L (140-440) 10*3/uL Immature Gran # (0.00-0.04) 10*3/uL Eosinophils # (0.04-0.35) 10*3/uL Sodium 147 H (137-145) mmol/L Carbon Dioxide 36 H (22-30) mmol/L BUN 26 H (9-20) mg/dL Creatinine 0.31 L (0.66-1.25) mg/dL Glucose 157 H (74-99) mg/dL Calcium 7.2 L (8.4-10.2) mg/dL Total Bilirubin 3.8 H (0.2-1.3) mg/dL Albumin 2.3 L (3.5-5.0) g/dL Crossmatch See Detail 09/14/24 Range/Units 05:41 RBC 2.87 L (4.40-5.60) 10*6/uL Hgb 6.9 L* (13.0-17.0) g/dL Hct 23.9 L (39.6-50.0) % MCH 24.0 L (27.0-32.0) pg MCHC 28.9 L (32.0-37.0) g/dL Plt Count 136 L (140-440) 10*3/uL Immature Gran # 0.05 H (0.00-0.04) 10*3/uL Eosinophils # 0.03 L (0.04-0.35) 10*3/uL Sodium (137-145) mmol/L Carbon Dioxide (22-30) mmol/L BUN (9-20) mg/dL Creatinine (0.66-1.25) mg/dL Glucose (74-99) mg/dL Calcium (8.4-10.2) mg/dL Total Bilirubin (0.2-1.3) mg/dL Albumin (3.5-5.0) g/dL Crossmatch Microbiology - Last 24 Hours (Table) 09/07/24 10:40 Gram Stain - Final Bronchial Washings - Random Bronchial Washings Culture - Final Pseudomonas aeruginosa Corynebacterium striatum group Assessment and Plan (1) Pneumonia Current Visit: Yes Status: Acute Code(s): J18.9 - PNEUMONIA, UNSPECIFIED ORGANISM SNOMED Code(s): 980942506 (2) Sepsis Current Visit: Yes Status: Acute Code(s): A41.9 - SEPSIS, UNSPECIFIED ORGANISM SNOMED Code(s): 76811432 Plan: 1patient is a hospital with sepsis in this patient who did have fever tachycardia elevated lactic acid upon meeting criteria for SIRS/sepsis source likely pneumonia in this patient who did have history of recurrent multidrug- resistant Pseudomonas pneumonia and will need to cover for that pathogen while waiting for the culture to be finalized 2-blood cultures has been negative and sputum culture growing Pseudomonas that is sensitive to Avycaz and tobramycin, Zerbaxa sensitivity not reported 3-patient is status post bronchoscopy lavage results currently growing Pseudomonas that is resistant to Avycaz and corynebacterium, sensitivity on corynebacterium is pending 4-patient did have a fever again slightly concerning last evening but afebrile this morning if any further fever we will repeat blood cultures patient is currently being treated with Zerbaxa # 4/7 and vancomycin while waiting for the sensitivity on the corynebacterium, prognosis remains to be guarded Dictation was produced using [employer]ation software. please excuse any grammatical, word or spelling errors. Time with Patient: Less than 30
[2024-09-15 10:07] LABS: HCT 26.1 % (39.6-50.0); HGB 7.5 g/dL (13.0-17.0); Immature Platelet Fraction 12.3 % (1.1-6.1); MCH 24.9 pg (27.0-32.0); MCHC 28.7 g/dL (32.0-37.0); MCV 86.7 fL (80.0-97.0); Platelet Count 137 10*3/uL (140-440); RBC 3.01 10*6/uL (4.40-5.60); RDW 18.6 % (11.5-14.5); WBC 7.07 10*3/uL (4.50-10.00)
[2024-09-15 10:09] LABS: ALT 25 U/L (4-49); AST 27 U/L (17-59); African American GFR (CKD) >90 (>60 ml/min/1.73 sqM); Albumin 2.2 g/dL (3.5-5.0); Alkaline Phosphatase 75 U/L (38-126); Anion Gap 3 mmol/L; Blood Urea Nitrogen 23 mg/dL (9-20); Calcium 7.4 mg/dL (8.4-10.2); Carbon Dioxide 34 mmol/L (22-30); Chloride 108 mmol/L (98-107); Glucose 169 mg/dL (74-99); Magnesium 2.1 mg/dL (1.6-2.3); Non-African American GFR(CKD) >90 (>60 ml/min/1.73 sqM); Potassium 4.3 mmol/L (3.5-5.1); Sodium 145 mmol/L (137-145); Total Protein 6.5 g/dL (6.3-8.2)
[2024-09-15] MEDS: VANCOMYCIN TROUGH DUE 1 EACH MISC MISCELLANE ONE (10:11)
--- NOTE | 2024-09-15 12:35 | P.PN ---
Subjective Progress Note Date: 09/15/24 Principal diagnosis: Acute on chronic hypoxic respiratory failure secondary to bilateral pneumonia secondary to multidrug resistant Pseudomonas aeruginosa This is a 49-year-old white male familiar to my service, history of paraplegia, home vent dependent, history of tracheostomy, patient had multiple admissions to the ICU for recurrent episodes of pneumonia and respiratory failure requiring ventilatory support. On his last admission patient was eventually discharged home on a home ventilator, and this was back on 08/04/2024. Patient was discharged home with a PICC line, patient was in the ER yesterday on 08/28 for abnormal labs mostly low potassium and low sodium discharged home however he came back today complaining of shortness of breath, has been ventilator depende nt all along. Chest x-ray showed basically bibasilar opacities/atelectasis, doubt pneumonia, the findings in the left lower lobe are chronic. Patient did have previous history of pneumonia involving the left lower lobe and he had multiple bronchoscopies in the past. Bronchial cultures and sputum cultures have been positive in the past for mostly Pseudomonas aeruginosa. Patient was seen in the ER today, and he is already on cefepime for empiric coverage for potential left lower lobe pneumonia, patient had abnormal electrolytes with relatively low sodium low potassium, no leukocytosis, normal renal profile, blood pressure was soft, and he was given fluid boluses. Lactic acid was 2.1, D-dimer is normal, patient was admitted, and this consult was initiated. 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 09/10/2024, patient is awake and alert and communicating. Continues to have on and off episodes of shortness of breath while being on a mechanical ventilator. Oxygenation is borderline and the patient's pulse ox remains low. Unable to obtain any blood gases as the patient has declined arterial blood draws. He is on assist-control mode rate of 20, tidal volume of 450, FiO2 of 70% with a PEEP of 10. Remains on TPN at rate of 35 cc an hour and lactated Ringer at rate of 50 cc an hour. Fluid balance is +2.6 L over the past 24 hours.the white cell count is 6.3, hemoglobin is at 7.4, platelet count is a 73 and the patient remains on therapeutic dose of Lovenox. The patient's sodium levels at 143, K is at 3.3, bicarb is at 40 with a BUN of 21 and a creatinine of 0.8. Blood sugar is 140. The most recent lavage from the right lower lobe was positive for Pseudomonas aeruginosa and corynebacterium. The patient remains on a combination of ceftazidime antibacterial combination, tobramycin and IV vanc omycin. Output from ileostomy is in order of 800 cc over the past 8 hours. Remains on IV Lasix. Chest x-ray is unchanged and it shows bilateral pulmonary infiltrates, diffuse increased interstitial lung markings, lines and catheters are in place, tracheostomy tube is in place. 09/11/2024, the patient is stable, awake and alert and communicating. Remains on TPN for nutritional support with rate of 75 cc an hour. Remains on the same mechanical ventilator settings and the patient remains on assist-control mode at rate of 20, tidal volume of 450, FiO2 of 60% with a PEEP of 8. Fluid balance is -50 cc over the past 24 hours and the patient remains on IV Lasix 20 mg every 8 hours. The biotic coverage remains unchanged and the patient remains on a combination of ceftazidime IV Bactrim, tobramycin and vancomycin. The white cell count is at 4.7 with a hemoglobin of 7.1 and a platelet count of 89. BUN is 20 with a creatinine of 0.25. Sodium levels at 142. Serum iron levels at 16. Vancomycin trough is at 17. Follow-up chest x-ray from today shows stable bilateral pulmonary filtrates and pleural effusions bilaterally. Tracheostomy tube remains in good location. The patient continues to have high output through the ileostomy. Currently afebrile. No cardiac arrhythmias have been noted. 09/12/2024, patient is resting comfortably in bed. Remains on a mechanical ventilator. Unable to wean. Chest x-ray still showing bilateral pulmonary filtrates consistent with pneumonia. The patient is on assist-control mode at rate of 20, tidal volume of 450, FiO2 of 50% and a PEEP of 8. Remains negative fluid balance as the patient is being diuresed with IV Lasix. Fluid balance is -1 L over the past 24 hours. Remains on Lasix 20 mg IV push every 8 hours. Hemoglobin from this morning was 5.8. Repeat hemoglobin came back at 7.4. Platelet counts are stable. No evidence of any GI bleeding. Remains on Lovenox therapeutic dose. Remains on TPN at rate of 75 cc an hour. White cell count is at 5, platelet count is at 93, BUN is 25 with a creatinine 0.4. Sodium levels at 144 and a potassium level is at 3.6. Ileostomy still functioning. Remains on broad-spectrum antibiotics. Remains on ceftolozane/tazobactam. Remains on vancomycin. Remains on stress dose hydrocortisone. 09/13/2024, the patient is being seen for a follow-up. No change in his condition over the past 24 hours. Remains on a mechanical ventilator. Awake and alert and communicating. Started on fentanyl patch and his pain is under better control and the patient is using fentanyl patch 75 mcg every 72 hours. Remains assist-control mechanical ventilation at rate of 20, tidal volume of 450, FiO2 50% with a PEEP of 8. Chest x-ray from today shows stable bilateral pulmonary infiltrates, no significant change compared to yesterday and the tracheostomy tube remains in place. The patient continues to have multifocal airspace disease. Fluid balance is +30 cc over the past 24 hours. TPN is r unning at a rate of 75 cc an hour. Afebrile. Hemoglobin in this morning was at 5.8. Recheck was 6.1. The platelet count is 817. Sodium is at 148, potassium 3.2, BUN 26 with a creatinine of 0.44. Serum bicarb is at 38. The patient has a triglyceride level of 152. Remains on ceftolozane tazobactam and vancomycin. Seen today on 09/14/24, patient remains intubated, mechanically ventilated, verenice usable, follows simple instructions, he is on assist-control rate of 20 tidal volume 450 FiO2 50% and PEEP of 6 patient is spiking temps he had a temp as high as 102 remains on Zerbaxa and vancomycin his hemoglobin is low today 6.9 will give a unit of packed RBCs still requiring norepinephrine at 0.12 mcg/kg/min he is also on TPN at 75 cc/h. Not much of a change noted in his overall clinical picture, patient remains quite ill and septic. Labs today show WBC of 6.4 hemoglobin 6.9 electrolytes are normal sodium is 147 renal profile is normal, chest x-ray continues to show multifocal airspace opacities and small bilateral pleural effusions. Seen today on 09/15/2024, patient was seen in consultation, remains in the ICU intubated and mechanically ventilated, assist-control rate of 20 tidal volume 450 FiO2 60% PEEP of 8 no ABG done today. However his chest x-ray continues to show significant bibasilar infiltrates right more so than left. Patient is still requiring norepinephrine at 0.08 mcg/kg/min. Sputum cultures were noted positive for Pseudomonas and corynebacterium patient remains on Zerbaxa and vancomycin. Looking back at the clinical history of this patient and his previous admissions and previous notes, I believe we have not making any progress or any significant improvement since admission. Today I had a chance to discuss CODE STATUS again with the patient and explained to him that his overall picture does not seem to be very promising, I also discussed with the patient the option of hospice, patient is undecided at this point, he will think about it. WBC count is 7.07 hemoglobin 7.5 patient did receive a unit of packed RBCs yesterday for hemoglobin of 6.9. Electrolytes are normal renal profile is normal, chest x-ray continues to show infiltrates mostly in the right lower lobe more so than the left lower lobe. Objective - Vital Signs Vital signs: Vital Signs Temp 99.9 F H 09/15/24 12:00 Pulse 106 H 09/15/24 12:00 Resp 21 09/15/24 12:00 BP 107/40 09/15/24 12:00 Pulse Ox 99 09/15/24 12:00 FiO2 60 09/15/24 12:00 Intake & Output 09/14/24 09/15/24 09/15/24 18:59 06:59 18:59 Intake Total 3962.513 7758.802 450.392 Output Total 2595 2250 880 Balance -1240.412 -497.198 -429.608 Weight 100.3 kg 100.3 kg Intake: IV 195 120 0.9 120 120 Mvi, Adult No.4 with Vit 75 K 10 ml Trace (Conc-1Ml/ Dose) 1 ml Magnesium Sulfate gm 2 gm Sodium Phosphate 30 mmol Potassium Chloride 80 meq Sodium Acetate 90 meq Calcium Gluconate 0.5 gm In Amino Acids 5 %/ Dextrose 20 % 1,000 ml @ 75 mls/hr IV .BY DURATION [facility] Rx#:[id number] Intake, IV Titration 99.588 647.802 25.392 Amount Ceftolozane/Tazobactam 3 100 gm In Sodium Chloride 0.9 % 100 ml @ 100 mls/hr IV Q8HR [facility] Rx#:[id number] Norepinephrine 8 mg In 99.588 47.802 25.392 Sodium Chloride 0.9% 250 ml @ 0.03 MCG/KG/MIN 5. 003 mls/hr IV .Q24H [facility] Rx#:[id number] Vancomycin 1,500 mg In 500 Sodium Chloride 0.9% 500 ml 500 ml @ 167 mls/hr IVPB Q16H [facility] Rx#: [id number] TPN/PPN 750 985 425 0.9 10 50 TPN 750 975 375 Blood Product 310 Rc As-1 Unit 310 [id number] Output: Urine 695 1250 130 Stool 1900 1000 750 Other: Voiding Method Indwelling Catheter Indwelling Catheter Indwelling Catheter - Exam GENERAL EXAM: 49-year-old white male intubated mechanically ventilated patient has a chronic tracheostomy HEAD: Normocephalic. EYES: Normal reaction of pupils, equal size. NOSE: Clear with pink turbinates. THROAT: Tracheostomy tube secured in place. No erythema or exudates. NECK: No masses, no JVD. CHEST: No chest wall deformity. LUNGS: Equal air entry with coarse rhonchi bilaterally. CVS: S1 and S2 normal with no audible murmur, regular rhythm. ABDOMEN: Enterocutaneous fistula over the abdominal wall. No hepatosplenomegaly, normal bowel sounds. SKIN: No rashes CENTRAL NERVOUS SYSTEM: No focal deficits, except for paraplegia. EXTREMITIES: Extensive muscle atrophy. Contractures. There is no peripheral edema. No clubbing, no cyanosis. Peripheral pulses are intact. Right below- knee amputation is noted. - Labs CBC & Chem 7: 09/15/24 09:19 09/15/24 09:19 Labs: Abnormal Lab Results - Last 24 Hours (Table) 09/12/24 09/15/24 09/15/24 Range/Units 07:15 09:19 09:19 RBC (4.40-5.60) 10*6/uL Hgb (13.0-17.0) g/dL Hct (39.6-50.0) % MCH (27.0-32.0) pg MCHC (32.0-37.0) g/dL Plt Count (140-440) 10*3/uL Immature Plt Fraction (1.1-6.1) % Chloride 108 H (98-107) mmol/L Carbon Dioxide 34 H (22-30) mmol/L BUN 23 H (9-20) mg/dL Creatinine 0.46 L 0.47 L (0.66-1.25) mg/dL Glucose 169 H (74-99) mg/dL Calcium 7.4 L (8.4-10.2) mg/dL Total Bilirubin 3.7 H (0.2-1.3) mg/dL Albumin 2.2 L (3.5-5.0) g/dL Crossmatch See Detail 09/15/24 Range/Units 09:19 RBC 3.01 L (4.40-5.60) 10*6/uL Hgb 7.5 L (13.0-17.0) g/dL Hct 26.1 L (39.6-50.0) % MCH 24.9 L (27.0-32.0) pg MCHC 28.7 L (32.0-37.0) g/dL Plt Count 137 L (140-440) 10*3/uL Immature Plt Fraction 12.3 H (1.1-6.1) % Chloride (98-107) mmol/L Carbon Dioxide (22-30) mmol/L BUN (9-20) mg/dL Creatinine (0.66-1.25) mg/dL Glucose (74-99) mg/dL Calcium (8.4-10.2) mg/dL Total Bilirubin (0.2-1.3) mg/dL Albumin (3.5-5.0) g/dL Crossmatch Microbiology - Last 24 Hours (Table) 09/07/24 10:40 Gram Stain - Final Bronchial Washings - Random Bronchial Washings Culture - Final Pseudomonas aeruginosa Corynebacterium striatum group Assessment and Plan Assessment: Impression: Acute on chronic hypoxic respiratory failure still intubated and mechanically ventilated, multifactorial but mostly related to multidrug- resistant Pseudomonas aeruginosa pneumonia. Antibiotics are being addressed by infectious disease on the case. Septic shock, secondary to pneumonia patient is on Zerbaxa and vancomycin. Chronic hypoxic and hypercapnic respiratory failure, patient is ventilator dependent, on home ventilator. History of severe tracheal stenosis History of tracheostomy History of recurrent pneumonias involving left lower lobe Tracheobronchomalacia History of DVT History of CVA History of right below-knee amputation History of asystole/cardiac arrest 2021. 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 Patient is maintained mostly on TPN. Recommendation: Discussed with the patient his overall clinical status today and discussed with the patient the option of hospice patient remains critically ill, and prognosis is extremely poor. Continue to monitor in the ICU Continue present antibiotics Continue ventilatory support Zerbaxa, he is also on vancomycin. Continue norepinephrine for hemodynamic support Continue GI DVT prophylaxis with Protonix and Lovenox Continue nutritional support/TPN Continue to monitor daily labs Continue bronchodilators/DuoNeb updrafts 4 times daily and as needed Remains critically ill and septic requiring pressors and requiring ventilatory support, unfortunately his prognosis is extremely poor and guarded and not much improvement noted in his overall status over the last few weeks. Critical care time is 33 minutes We will continue to follow Time with Patient: Greater than 30
[2024-09-15] MEDS: VANCOMYCIN 1,500 MG in SODIUM CHLORIDE 0.9% 500 ML 500 ML IVPB SCH (12:38)
--- NOTE | 2024-09-15 14:00 | P.PN ---
Subjective Progress Note Date: 09/15/24 49-year-old patient, History of paraplegia, home vent at night, tracheostomy multiple admissions to the ICU for recurrent pneumonia. Patient's previous bronchial cultures been positive for Pseudomonas. He was discharged recently on IV cefepime. Also has a history of Crohn's disease with previous colectomy diverting ileostomy. History of DVT for which patient is on subcu Lovenox. Also had drug-resistant MRSA Pseudomonas. Patient currently does not have areas significant trach secretions. He has co ntinues TPN. Has a right BKA. He does have slight movement in the right hand. Able to follow commands by nodding his head. 09/06/2024 Patient is seen and evaluated in ICU; remains on mechanical ventilator, actually his home ventilator, with settings of volume assist-control, rate 20, tidal volume 450, FiO2 45%, PEEP of 5. - patient has been refusing blood; no ABGs to. He is getting lactated Ringer's at 50 cc an hour, TPN at 65 cc an hour. - patient remains on the same antibiotics. - Labs reviewed which reveal white count 5.21, hemoglobin 7.9, hematocrit 27.5, and platelet count 64,000. Sodium 141, potassium 3.5, chlorides 102, CO2 32, BUN 25, and creatinine 0.35. Glucose is 152. Calcium is 8. Albumin is 2.1. -Chest x-ray is largely unchanged. Critical care managing mechanical ventilation; recommending to add scopolamine patch for increased secretion -Patient remains on Avycaz and tobramycin - Continue with current TPN 09/07 Patient remains in the ICU lethargic. He is s/p tracheostomy Overnight he was more hypoxic they have to increase PEEP to 8. Also has a lot of secretions when needed for secretions suctioning to try to become apneic per Staff. Patient currently receiving Avycaz and tobramycin. on TPN also 09/08 Patient remains in the ICU awake and alert status post tracheostomy. He has contractures of both upper and lower extremities He is complaining from pain in his lungs. He is status post flexible bronchoscopy and bronchoalveolar lavage yesterday. He has previous sputum culture positive for Pseudomonas currently covered with ceftazidime and tobramycin. He is also on Lovenox 90 mg 09/09 Patient still in the ICU on mechanical ventilation via tracheostomy. PEEP is 8.0 as is yesterday Also he spiked little fever to 100.7. IV vancomycin is added to tobramycin and ceftazidime He is getting also bronchoscopy follow-up culture results 09/10 Patient feels clinically the same, he still getting breathing via mechanical ventilation through his tracheostomy with PEEP of 8. Patient feels he is required suctioning through his tracheostomy tube. He d enies chest pain or pain anywhere else he can communicate by head signs and gestures. Hemodynamically stable and afebrile hemoglobin 7.4 platelet count 73 Glucose is controlled potassium 3.3 He remains on broad-spectrum antibiotic Rocephin at this time tobramycin and IV vancomycin added yesterday because he had low-grade fever. He is getting TPN. IV fluid Ringer lactate was stopped and patient was started on IV Lasix 20 mg 3 times a day continue with therapeutic dose of Lovenox as well 09/11 Patient remains in the ICU Remains on mechanical ventilation via tracheostomy He status post bronchoalveolar lavage 2 days ago, culture is growing Pseudomonas aeruginosa and corynebacterium Patient remains on broad-spectrum antibiotics with IV vancomycin, tobramycin, ceftazidime On IV Lasix also is on therapeutic dose of Lovenox 90 mg twice daily No IV fluids 09/12 Patient remains in the ICU Clinically close to what he was over the last 2 days still getting oxygen via his tracheostomy He remains on broad-spectrum antibiotic with Ceftin this time and IV vancomycin. Also he is on IV Lasix 20 mg and therapeutic dose of Lovenox. 09/13 Patient remains in the ICU on mechanical ventilation via tracheostomy Patient looks better today, he breathing better Less secretion Fentanyl patch increased 09/14. Patient seen and examined. Patient continues to be on mechanical ventilation via trach mask. Currently on TPN. Currently on IV Zerbaxa and vancomycin 09/15. Patient seen and examined.Vital signs done showed the patient overnight, heart rate 106, blood pressure 107/40, currently on ventilation. Labs reviewed showed WBC 7.27, hemoglobin 7.5, sodium 148 on potassium 4.3, BUN 23, creatinine 0.47 REVIEW OF SYSTEMS: Review of system cannot be obtained as patient currently mechanical ventilation via trach mask PHYSICAL EXAMINATION: GENERAL: The patient is alert, ill looking HEENT: Pupils are round and equally reacting to light. EOMI. No scleral icterus. No conjunctival pallor. Normocephalic, atraumatic. No pharyngeal erythema. No thyromegaly. Trach collar seen CARDIOVASCULAR: S1 and S2 present. No murmurs, rubs, or gallops. PULMONARY: Coarse breath sounds bilaterally, no wheeze ABDOMEN: Soft, ostomy seen MUSCULOSKELETAL: No joint swelling or deformity. EXTREMITIES: No cyanosis, clubbing, or pedal edema. NEUROLOGICAL: Gross neurological examination did not reveal any focal deficits. SKIN: No rashes. Assessment and plan Acute on chronic hypoxic respiratory failure. Bilateral pleural effusion Chronic hypoxic and hypercapnic respiratory failure, vent dependent at night at home Bacterial pneumonia. History of severe tracheal stenosis, S/P tracheostomy. History of recurrent pneumonia, with cultures indicating multidrug-resistant Pseudomonas aeruginosa - Septic shock: Previous admission sputum was positive for Pseudomonas aeruginosa-: Clinically responding Repeat bronchoscopy on 09/07/2024 shows a positive Pseudomonas aeruginosa and corynebacterium in the BAL collected from the right lower lobe Currently on IV Zerbaxa, vancomycin Continue Levophed Being followed by pulmonary, and ID Patient has very poor prognosis -Loose stools negative for C. difficile Continue Metamucil - Normocytic anemia of chronic disease and hospital-acquired anemia from blood draws Follow H&H - Thrombocytopenia likely from sepsis Follow - Chronic quadriparesis. Including left foot drop. Left arm contracture. Some right hand contracture. Some movement in the right arm - Crohn's disease with double barrel ostomy bag in place since 09/2021 Continue TPN History of DVT. History of CVA. History of right below-knee amputation. Previous history of asystole/cardiac arrest, 2021. Continue home med Labs and medication were reviewed.. Continue same treatment. Continue with symptomatic treatment. Resume home medication. Monitor labs and vitals. DVT and GI prophylaxis. Further recommendations as per clinical course of the patient Dictation was produced using [employer] dictation software. please excuse any grammatical, word or spelling errors. Objective - Vital Signs Vital signs: Vital Signs Temp 99.9 F H 09/15/24 12:00 Pulse 89 09/15/24 13:00 Resp 20 09/15/24 13:00 BP 106/43 09/15/24 13:00 Pulse Ox 95 09/15/24 13:00 FiO2 60 09/15/24 12:00 Intake & Output 0609/15/24 09/15/24 18:59 06:59 18:59 Intake Total 2821.044 3239.802 535.392 Output Total 2595 2250 910 Balance -1240.412 602.802 -374.608 Weight 100.3 kg 100.3 kg Intake: IV 195 120 0.9 120 120 Mvi, Adult No.4 with Vit 75 K 10 ml Trace (Conc-1Ml/ Dose) 1 ml Magnesium Sulfate gm 2 gm Sodium Phosphate 30 mmol Potassium Chloride 80 meq Sodium Acetate 90 meq Calcium Gluconate 0.5 gm In Amino Acids 5 %/ Dextrose 20 % 1,000 ml @ 75 mls/hr IV .BY DURATION [facility] Rx#:[id number] Intake, IV Titration 99.588 1747.802 25.392 Amount Ceftolozane/Tazobactam 3 100 gm In Sodium Chloride 0.9 % 100 ml @ 100 mls/hr IV Q8HR [facility] Rx#:[id number] Mvi, Adult No.4 with Vit 1100 K 10 ml Trace (Conc-1Ml/ Dose) 1 ml Magnesium Sulfate gm 2 gm Sodium Phosphate 30 mmol Potassium Chloride 80 meq Sodium Acetate 60 meq Calcium Gluconate 0.5 gm In Amino Acids 5 %/ Dextrose 20 % 1,000 ml @ 75 mls/hr IV .BY DURATION [facility] Rx#:[id number] Norepinephrine 8 mg In 99.588 47.802 25.392 Sodium Chloride 0.9% 250 ml @ 0.03 MCG/KG/MIN 5. 003 mls/hr IV .Q24H [facility] Rx#:[id number] Vancomycin 1,500 mg In 500 Sodium Chloride 0.9% 500 ml 500 ml @ 167 mls/hr IVPB Q16H [facility] Rx#: [id number] TPN/PPN 750 985 510 0.9 10 60 TPN 750 975 450 Blood Product 310 Rc As-1 Unit 310 [id number] Output: Urine 695 1250 160 Stool 1900 1000 750 Other: Voiding Method Indwelling Catheter Indwelling Catheter Indwelling Catheter - Labs CBC & Chem 7: 09/15/24 09:19 09/15/24 09:19 Labs: Abnormal Lab Results - Last 24 Hours (Table) 09/12/24 09/15/24 09/15/24 Range/Units 07:15 09:19 09:19 RBC (4.40-5.60) 10*6/uL Hgb (13.0-17.0) g/dL Hct (39.6-50.0) % MCH (27.0-32.0) pg MCHC (32.0-37.0) g/dL Plt Count (140-440) 10*3/uL Immature Plt Fraction (1.1-6.1) % Chloride 108 H (98-107) mmol/L Carbon Dioxide 34 H (22-30) mmol/L BUN 23 H (9-20) mg/dL Creatinine 0.46 L 0.47 L (0.66-1.25) mg/dL Glucose 169 H (74-99) mg/dL Calcium 7.4 L (8.4-10.2) mg/dL Total Bilirubin 3.7 H (0.2-1.3) mg/dL Albumin 2.2 L (3.5-5.0) g/dL Crossmatch See Detail 09/15/24 Range/Units 09:19 RBC 3.01 L (4.40-5.60) 10*6/uL Hgb 7.5 L (13.0-17.0) g/dL Hct 26.1 L (39.6-50.0) % MCH 24.9 L (27.0-32.0) pg MCHC 28.7 L (32.0-37.0) g/dL Plt Count 137 L (140-440) 10*3/uL Immature Plt Fraction 12.3 H (1.1-6.1) % Chloride (98-107) mmol/L Carbon Dioxide (22-30) mmol/L BUN (9-20) mg/dL Creatinine (0.66-1.25) mg/dL Glucose (74-99) mg/dL Calcium (8.4-10.2) mg/dL Total Bilirubin (0.2-1.3) mg/dL Albumin (3.5-5.0) g/dL Crossmatch Microbiology - Last 24 Hours (Table) 09/07/24 10:40 Gram Stain - Final Bronchial Washings - Random Bronchial Washings Culture - Final Pseudomonas aeruginosa Corynebacterium striatum group
--- NOTE | 2024-09-15 22:34 | P.PN ---
Subjective Progress Note Date: 09/15/24 Principal diagnosis: Reason for follow-up is sepsis and pneumonia Patient is a 49-year-old male with a past medical history significant for CVA TIA DVT pneumonia history of complicated Crohn's disease in this patient who did have multiple abdominal surgeries patient also have a tracheostomy has been brought to the hospital with Generalized weakness did have a fever c oncerning for pneumonia on today's evaluation that is 09/15/2024, Patient did spike a fever of 101.2 F this morning the patient remains to be debated on the vent the patient is hemodynamically stable FiO2 is currently at 60% no significant purulent secretions with 80 or any other changes reported by the nursing staff. Patient white count 7.07, creatinine 0.47 Objective - Vital Signs Vital signs: Vital Signs Temp 101.2 F H 09/15/24 08:00 Pulse 101 H 09/15/24 11:00 Resp 21 09/15/24 11:00 BP 87/35 09/15/24 11:00 Pulse Ox 95 09/15/24 11:00 FiO2 60 09/15/24 11:28 Intake & Output 09/14/24 09/15/24 09/15/24 18:59 06:59 18:59 Intake Total 6616.203 8469.802 450.392 Output Total 2595 2250 880 Balance -1240.412 -497.198 -429.608 Weight 100.3 kg 100.3 kg Intake: IV 195 120 0.9 120 120 Mvi, Adult No.4 with Vit 75 K 10 ml Trace (Conc-1Ml/ Dose) 1 ml Magnesium Sulfate gm 2 gm Sodium Phosphate 30 mmol Potassium Chloride 80 meq Sodium Acetate 90 meq Calcium Gluconate 0.5 gm In Amino Acids 5 %/ Dextrose 20 % 1,000 ml @ 75 mls/hr IV .BY DURATION ANNIE Rx#:[id number] Intake, IV Titration 99.588 647.802 25.392 Amount Ceftolozane/Tazobactam 3 100 gm In Sodium Chloride 0.9 % 100 ml @ 100 mls/hr IV Q8HR ANNIE Rx#:[id number] Norepinephrine 8 mg In 99.588 47.802 25.392 Sodium Chloride 0.9% 250 ml @ 0.03 MCG/KG/MIN 5. 003 mls/hr IV .Q24H ANNIE Rx#:[id number] Vancomycin 1,500 mg In 500 Sodium Chloride 0.9% 500 ml 500 ml @ 167 mls/hr IVPB Q16H [facility] Rx#: [id number] TPN/PPN 750 985 425 0.9 10 50 TPN 750 975 375 Blood Product 310 Rc As-1 Unit 310 [id number] Output: Urine 695 1250 130 Stool 1900 1000 750 Other: Voiding Method Indwelling Catheter Indwelling Catheter Indwelling Catheter - Exam GENERAL DESCRIPTION: Middle-age male intubated on the vent RESPIRATORY SYSTEM: Unlabored breathing , decreased breath sounds at bases HEART: S1 S2 regular rate and rhythm , ABDOMEN: Soft , no tenderness EXTREMITIES: Swelling to the leg - Labs CBC & Chem 7: 09/15/24 09:19 09/15/24 09:19 Labs: Abnormal Lab Results - Last 24 Hours (Table) 09/12/24 09/15/24 09/15/24 Range/Units 07:15 09:19 09:19 RBC (4.40-5.60) 10*6/uL Hgb (13.0-17.0) g/dL Hct (39.6-50.0) % MCH (27.0-32.0) pg MCHC (32.0-37.0) g/dL Plt Count (140-440) 10*3/uL Immature Plt Fraction (1.1-6.1) % Chloride 108 H (98-107) mmol/L Carbon Dioxide 34 H (22-30) mmol/L BUN 23 H (9-20) mg/dL Creatinine 0.46 L 0.47 L (0.66-1.25) mg/dL Glucose 169 H (74-99) mg/dL Calcium 7.4 L (8.4-10.2) mg/dL Total Bilirubin 3.7 H (0.2-1.3) mg/dL Albumin 2.2 L (3.5-5.0) g/dL Crossmatch See Detail 09/15/24 Range/Units 09:19 RBC 3.01 L (4.40-5.60) 10*6/uL Hgb 7.5 L (13.0-17.0) g/dL Hct 26.1 L (39.6-50.0) % MCH 24.9 L (27.0-32.0) pg MCHC 28.7 L (32.0-37.0) g/dL Plt Count 137 L (140-440) 10*3/uL Immature Plt Fraction 12.3 H (1.1-6.1) % Chloride (98-107) mmol/L Carbon Dioxide (22-30) mmol/L BUN (9-20) mg/dL Creatinine (0.66-1.25) mg/dL Glucose (74-99) mg/dL Calcium (8.4-10.2) mg/dL Total Bilirubin (0.2-1.3) mg/dL Albumin (3.5-5.0) g/dL Crossmatch Microbiology - Last 24 Hours (Table) 09/07/24 10:40 Gram Stain - Final Bronchial Washings - Random Bronchial Washings Culture - Final Pseudomonas aeruginosa Corynebacterium striatum group Assessment and Plan (1) Pneumonia Current Visit: Yes Status: Acute Code(s): J18.9 - PNEUMONIA, UNSPECIFIED ORGANISM SNOMED Code(s): 043797988 (2) Sepsis Current Visit: Yes Status: Acute Code(s): A41.9 - SEPSIS, UNSPECIFIED ORGANISM SNOMED Code(s): 05533112 Plan: 1patient is a hospital with sepsis in this patient who did have fever tachycardia elevated lactic acid upon meeting criteria for SIRS/sepsis source likely pneumonia in this patient who did have history of recurrent multidrug- resistant Pseudomonas pneumonia and will need to cover for that pathogen while waiting for the culture to be finalized 2-blood cultures has been negative and sputum culture growing Pseudomonas that is sensitive to Avycaz and tobramycin, Zerbaxa sensitivity not reported 3-patient is status post bronchoscopy lavage results currently growing Pseudomonas that is resistant to Avycaz and corynebacterium, sensitivity on corynebacterium is pending 4-patient did have a fever blood culture has been repeated patient is currently on Zerbaxa day number 5 out of 7 is also covered with vancomycin still waiting for sensitivity on the corynebacterium unable to use Zyvox because of drug interaction we will follow-up on repeat culture and adjust antibiotic further if needed, prognosis guarded Dictation was produced using [employer] dictation software. please excuse any grammatical, word or spelling errors. Time with Patient: Less than 30
[2024-09-16 06:20] LABS: HCT 26.8 % (39.6-50.0); HGB 7.6 g/dL (13.0-17.0); Immature Platelet Fraction 10.8 % (1.1-6.1); MCH 24.8 pg (27.0-32.0); MCHC 28.4 g/dL (32.0-37.0); MCV 87.3 fL (80.0-97.0); Platelet Count 131 10*3/uL (140-440); RBC 3.07 10*6/uL (4.40-5.60); RDW 19.1 % (11.5-14.5); WBC 5.45 10*3/uL (4.50-10.00)
[2024-09-16 06:30] LABS: ALT 35 U/L (4-49); AST 36 U/L (17-59); African American GFR (CKD) >90 (>60 ml/min/1.73 sqM); Albumin 2.2 g/dL (3.5-5.0); Alkaline Phosphatase 78 U/L (38-126); Anion Gap 4 mmol/L; Blood Urea Nitrogen 20 mg/dL (9-20); Calcium 7.5 mg/dL (8.4-10.2); Carbon Dioxide 33 mmol/L (22-30); Chloride 109 mmol/L (98-107); Glucose 163 mg/dL (74-99); Magnesium 2.0 mg/dL (1.6-2.3); Non-African American GFR(CKD) >90 (>60 ml/min/1.73 sqM); Potassium 4.1 mmol/L (3.5-5.1); Sodium 146 mmol/L (137-145); Total Protein 6.8 g/dL (6.3-8.2)
--- NOTE | 2024-09-16 08:09 | XR ---
EXAMINATION TYPE: XR chest 1V portable DATE OF EXAM: 09/16/2024 5:36 AM COMPARISON: 09/15/2024 CLINICAL INDICATION: Male, 49 years old with history of Mechanical ventilation, FINDINGS: Indwelling tubes and catheters are unchanged. Scattered infiltrates are seen throughout both lung craft unchanged with small effusions noted) left . Stable appearance of the cardio-mediastinal structures at this time. Pleural effusion unchanged. IMPRESSION: 1. Stable portable chest. Clinical correlation and follow up until resolution is recommended. [facility], , 09/16/2024 8:07 AM
[2024-09-16] MEDS: FUROSEMIDE 10 MG/ML 2 ML VIAL IV SCH (10:46)
--- NOTE | 2024-09-16 13:18 | P.PN ---
Progress Note - Text Progress Note Date: 09/16/24 Patient was seen today, he has no arterial access, multiple attempts have been made to pass a wire through the femoral artery after cannulation of the femoral artery twice, could not pass the wire. Hence no more trials were done on the femoral artery, moved up to the left brachial artery followed the protocol for placement of a left brachial arterial line, again multiple attempts were made to pass the wire through the brachial artery and the wire could not be passed. No further attempts were made. It was easy to access the vessels but could not for some reason to pass the wire through these vessels.
--- NOTE | 2024-09-16 13:54 | P.PN ---
Subjective Progress Note Date: 09/16/24 Principal diagnosis: Acute on chronic hypoxic respiratory failure secondary to bilateral pneumonia secondary to multidrug resistant Pseudomonas aeruginosa. This is a 49-year-old white male familiar to my service, history of paraplegia, home vent dependent, history of tracheostomy, patient had multiple admissions to the ICU for recurrent episodes of pneumonia and respiratory failure requiring ventilatory support. On his last admission patient was eventually discharged home on a home ventilator, and this was back on 08/04/2024. Patient was discharged home with a PICC line, patient was in the ER yesterday on 08/28 for abnormal labs mostly low potassium and low sodium discharged home however he came back today complaining of shortness of breath, has been ventilator depend ent all along. Chest x-ray showed basically bibasilar opacities/atelectasis, doubt pneumonia, the findings in the left lower lobe are chronic. Patient did have previous history of pneumonia involving the left lower lobe and he had multiple bronchoscopies in the past. Bronchial cultures and sputum cultures have been positive in the past for mostly Pseudomonas aeruginosa. Patient was seen in the ER today, and he is already on cefepime for empiric coverage for potential left lower lobe pneumonia, patient had abnormal electrolytes with relatively low sodium low potassium, no leukocytosis, normal renal profile, blood pressure was soft, and he was given fluid boluses. Lactic acid was 2.1, D-dimer is normal, patient was admitted, and this consult was initiated. 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 09/10/2024, patient is awake and alert and communicating. Continues to have on and off episodes of shortness of breath while being on a mechanical ventilator. Oxygenation is borderline and the patient's pulse ox remains low. Unable to obtain any blood gases as the patient has declined arterial blood draws. He is on assist-control mode rate of 20, tidal volume of 450, FiO2 of 70% with a PEEP of 10. Remains on TPN at rate of 35 cc an hour and lactated Ringer at rate of 50 cc an hour. Fluid balance is +2.6 L over the past 24 hours.the white cell count is 6.3, hemoglobin is at 7.4, platelet count is a 73 and the patient remains on therapeutic dose of Lovenox. The patient's sodium levels at 143, K is at 3.3, bicarb is at 40 with a BUN of 21 and a creatinine of 0.8. Blood sugar is 140. The most recent lavage from the right lower lobe was positive for Pseudomonas aeruginosa and corynebacterium. The patient remains on a combination of ceftazidime antibacterial combination, tobramycin and IV van comycin. Output from ileostomy is in order of 800 cc over the past 8 hours. Remains on IV Lasix. Chest x-ray is unchanged and it shows bilateral pulmonary infiltrates, diffuse increased interstitial lung markings, lines and catheters are in place, tracheostomy tube is in place. 09/11/2024, the patient is stable, awake and alert and communicating. Remains on TPN for nutritional support with rate of 75 cc an hour. Remains on the same mechanical ventilator settings and the patient remains on assist-control mode at rate of 20, tidal volume of 450, FiO2 of 60% with a PEEP of 8. Fluid balance is -50 cc over the past 24 hours and the patient remains on IV Lasix 20 mg every 8 hours. The biotic coverage remains unchanged and the patient remains on a combination of ceftazidime IV Bactrim, tobramycin and vancomycin. The white cell count is at 4.7 with a hemoglobin of 7.1 and a platelet count of 89. BUN is 20 with a creatinine of 0.25. Sodium levels at 142. Serum iron levels at 16. Vancomycin trough is at 17. Follow-up chest x-ray from today shows stable bilateral pulmonary filtrates and pleural effusions bilaterally. Tracheostomy tube remains in good location. The patient continues to have high output through the ileostomy. Currently afebrile. No cardiac arrhythmias have been noted. 09/12/2024, patient is resting comfortably in bed. Remains on a mechanical ventilator. Unable to wean. Chest x-ray still showing bilateral pulmonary filtrates consistent with pneumonia. The patient is on assist-control mode at rate of 20, tidal volume of 450, FiO2 of 50% and a PEEP of 8. Remains negative fluid balance as the patient is being diuresed with IV Lasix. Fluid balance is -1 L over the past 24 hours. Remains on Lasix 20 mg IV push every 8 hours. Hemoglobin from this morning was 5.8. Repeat hemoglobin came back at 7.4. Platelet counts are stable. No evidence of any GI bleeding. Remains on Lovenox therapeutic dose. Remains on TPN at rate of 75 cc an hour. White cell count is at 5, platelet count is at 93, BUN is 25 with a creatinine 0.4. Sodium levels at 144 and a potassium level is at 3.6. Ileostomy still functioning. Remains on broad-spectrum antibiotics. Remains on ceftolozane/tazobactam. Remains on vancomycin. Remains on stress dose hydrocortisone. 09/13/2024, the patient is being seen for a follow-up. No change in his condition over the past 24 hours. Remains on a mechanical ventilator. Awake and alert and communicating. Started on fentanyl patch and his pain is under better control and the patient is using fentanyl patch 75 mcg every 72 hours. Remains assist-control mechanical ventilation at rate of 20, tidal volume of 450, FiO2 50% with a PEEP of 8. Chest x-ray from today shows stable bilateral pulmonary infiltrates, no significant change compared to yesterday and the tracheostomy tube remains in place. The patient continues to have multifocal airspace disease. Fluid balance is +30 cc over the past 24 hours. TPN is running at a rate of 75 cc an hour. Afebrile. Hemoglobin in this morning was at 5.8. Recheck was 6.1. The platelet count is 817. Sodium is at 148, potassium 3.2, BUN 26 with a creatinine of 0.44. Serum bicarb is at 38. The patient has a triglyceride level of 152. Remains on ceftolozane tazobactam and vancomycin. Seen today on 09/14/24, patient remains intubated, mechanically ventilated, ar ousable, follows simple instructions, he is on assist-control rate of 20 tidal volume 450 FiO2 50% and PEEP of 6 patient is spiking temps he had a temp as high as 102 remains on Zerbaxa and vancomycin his hemoglobin is low today 6.9 will give a unit of packed RBCs still requiring norepinephrine at 0.12 mcg/kg/min he is also on TPN at 75 cc/h. Not much of a change noted in his overall clinical picture, patient remains quite ill and septic. Labs today show WBC of 6.4 hemoglobin 6.9 electrolytes are normal sodium is 147 renal profile is normal, chest x-ray continues to show multifocal airspace opacities and small bilateral pleural effusions. Seen today on 09/15/2024, patient was seen in consultation, remains in the ICU intubated and mechanically ventilated, assist-control rate of 20 tidal volume 450 FiO2 60% PEEP of 8 no ABG done today. However his chest x-ray continues to show significant bibasilar infiltrates right more so than left. Patient is still requiring norepinephrine at 0.08 mcg/kg/min. Sputum cultures were noted positive for Pseudomonas and corynebacterium patient remains on Zerbaxa and vancomycin. Looking back at the clinical history of this patient and his previous admissions and previous notes, I believe we have not making any progress or any significant improvement since admission. Today I had a chance to discuss CODE STATUS again with the patient and explained to him that his overall picture does not seem to be very promising, I also discussed with the patient the option of hospice, patient is undecided at this point, he will think about it. WBC count is 7.07 hemoglobin 7.5 patient did receive a unit of packed RBCs yesterday for hemoglobin of 6.9. Electrolytes are normal renal profile is normal, chest x-ray continues to show infiltrates mostly in the right lower lobe more so than the left lower lobe. Patient was seen today on 09/16/2021, patient is basically about the same. Hardly any improvement noted in the last few weeks since admission, patient remains intubated, mechanically ventilated, same ventilator settings, assist-control rate of 20 tidal volume 450 FiO2 60% and PEEP of 8 ABG was not done today, no easy access, attempted to place arterial lines in this patient, but could not pass a wire although the arteries including femoral artery and left brachial artery were easily cannulated. No further attempts made for arterial access. Patient remains on norepinephrine at 0.13 mcg/kg/min still on TPN at 75 cc/h still on Zerbaxa and vancomycin chest x-ray showed worsening today of bilateral infiltrates possibly some component of fluid overload and I recommended Lasix 20 mg IV push twice daily. Patient seems to be quite swollen and edematous. WBC count is 5.4 hemoglobin 7.6 electrolytes showed sodium of 146 potassium 4.1 BUN 20 creatinine 0.47 Objective - Vital Signs Vital signs: Vital Signs Temp 101.6 F H 09/16/24 12:00 Pulse 120 H 09/16/24 12:00 Resp 20 09/16/24 12:00 BP 125/47 09/16/24 12:00 Pulse Ox 93 L 09/16/24 12:00 FiO2 100 09/16/24 12:00 Intake & Output 09/15/24 09/16/24 09/16/24 18:59 06:59 18:59 Intake Total 2049.392 1957.941 721.991 Output Total 2570 2090 1095 Balance -520.608 -132.059 -373.009 Weight 100.3 kg 102 kg Intake: IV 110 0.9 110 Intake, IV Titration 1114.392 937.941 126.991 Amount Ceftolozane/Tazobactam 3 100 gm In Sodium Chloride 0.9 % 100 ml @ 100 mls/hr IV Q8HR [facility] Rx#:[id number] Magnesium Sulfate gm 2 gm 1089 Sodium Phosphate 30 mmol Potassium Chloride 80 meq Sodium Acetate 60 meq Calcium Gluconate 0.5 gm In Amino Acids 5 %/ Dextrose 20 % 1,000 ml @ 75 mls/hr IV .BY DURATION ANNIE Rx#:[id number] Norepinephrine 8 mg In 25.392 337.941 126.991 Sodium Chloride 0.9% 250 ml @ 0.03 MCG/KG/MIN 5. 003 mls/hr IV .Q24H [facility] Rx#:[id number] Vancomycin 1,500 mg In 500 Sodium Chloride 0.9% 500 ml 500 ml @ 167 mls/hr IVPB Q16H [facility] Rx#: [id number] TPN/PPN 935 910 595 0.9 110 10 70 TPN 825 900 525 Output: Gastric Drainage 1300 Urine 520 1390 1095 Stool 750 700 Other: Voiding Method Indwelling Catheter Indwelling Catheter Indwelling Catheter - Exam GENERAL EXAM: 49-year-old white male intubated mechanically ventilated patient has a chronic tracheostomy HEAD: Normocephalic. EYES: Normal reaction of pupils, equal size. NOSE: Clear with pink turbinates. THROAT: Tracheostomy tube secured in place. NECK: No masses, no JVD. CHEST: No chest wall deformity. LUNGS: Equal air entry with coarse rhonchi bilaterally. CVS: S1 and S2 normal with no audible murmur, regular rhythm. ABDOMEN: Enterocutaneous fistula over the abdominal wall. No hepatosplenomegaly, normal bowel sounds. SKIN: No rashes, patient is quite edematous CENTRAL NERVOUS SYSTEM: No focal deficits, except for paraplegia., Patient is generally weak EXTREMITIES: Bilateral edema, extensive muscle atrophy. Contractures. There is no peripheral edema. No clubbing, no cyanosis. Peripheral pulses are intact. Right below-knee amputation is noted. - Labs CBC & Chem 7: 09/16/24 05:40 09/16/24 05:40 Labs: Abnormal Lab Results - Last 24 Hours (Table) 09/16/24 09/16/24 Range/Units 05:40 05:40 RBC 3.07 L (4.40-5.60) 10*6/uL Hgb 7.6 L (13.0-17.0) g/dL Hct 26.8 L (39.6-50.0) % MCH 24.8 L (27.0-32.0) pg MCHC 28.4 L (32.0-37.0) g/dL Plt Count 131 L (140-440) 10*3/uL Immature Plt Fraction 10.8 H (1.1-6.1) % Sodium 146 H (137-145) mmol/L Chloride 109 H (98-107) mmol/L Carbon Dioxide 33 H (22-30) mmol/L Creatinine 0.47 L (0.66-1.25) mg/dL Glucose 163 H (74-99) mg/dL Calcium 7.5 L (8.4-10.2) mg/dL Total Bilirubin 5.1 H (0.2-1.3) mg/dL Albumin 2.2 L (3.5-5.0) g/dL Assessment and Plan Assessment: Impression: Acute on chronic hypoxic respiratory failure still intubated and mechanically ventilated, multifactorial but mostly related to multidrug- resistant Pseudomonas aeruginosa pneumonia. Septic shock, secondary to pneumonia patient is on Zerbaxa and vancomycin. Chronic hypoxic and hypercapnic respiratory failure, patient is ventilator dependent, patient has been recently on home ventilator History of severe tracheal stenosis History of tracheostomy History of recurrent pneumonias involving left lower lobe Tracheobronchomalacia History of DVT History of CVA History of right below-knee amputation History of asystole/cardiac arrest 2021. 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 Patient is maintained mostly on TPN. Bipedal edema with fluid overload hence patient was placed on Lasix. Recommendation: Patient remains critically ill We will continue to monitor in the ICU Patient is undecided regarding CODE STATUS at this point although he was made aware of his poor prognosis Continue present antibiotics, as ordered by infectious disease including Zerbaxa and vancomycin Continue ventilatory support Continue hemodynamic support requiring norepinephrine Continue norepinephrine for hemodynamic support Continue GI DVT prophylaxis with Protonix and Lovenox Continue nutritional support/TPN Continue to monitor daily labs Continue bronchodilators/DuoNeb updrafts 4 times daily and as needed Remains critically ill and septic requiring pressors and requiring ventilatory support, Critical care time is 35 minutes We will continue to follow Time with Patient: Greater than 30
--- NOTE | 2024-09-16 13:57 | P.PN ---
Subjective Progress Note Date: 09/16/24 49-year-old patient, History of paraplegia, home vent at night, tracheostomy multiple admissions to the ICU for recurrent pneumonia. Patient's previous bronchial cultures been positive for Pseudomonas. He was discharged recently on IV cefepime. Also has a history of Crohn's disease with previous colectomy diverting ileostomy. History of DVT for which patient is on subcu Lovenox. Also had drug-resistant MRSA Pseudomonas. Patient currently does not have areas significant trach secretions. He has co ntinues TPN. Has a right BKA. He does have slight movement in the right hand. Able to follow commands by nodding his head. 09/06/2024 Patient is seen and evaluated in ICU; remains on mechanical ventilator, actually his home ventilator, with settings of volume assist-control, rate 20, tidal volume 450, FiO2 45%, PEEP of 5. - patient has been refusing blood; no ABGs to. He is getting lactated Ringer's at 50 cc an hour, TPN at 65 cc an hour. - patient remains on the same antibiotics. - Labs reviewed which reveal white count 5.21, hemoglobin 7.9, hematocrit 27.5, and platelet count 64,000. Sodium 141, potassium 3.5, chlorides 102, CO2 32, BUN 25, and creatinine 0.35. Glucose is 152. Calcium is 8. Albumin is 2.1. -Chest x-ray is largely unchanged. Critical care managing mechanical ventilation; recommending to add scopolamine patch for increased secretion -Patient remains on Avycaz and tobramycin - Continue with current TPN 09/07 Patient remains in the ICU lethargic. He is s/p tracheostomy Overnight he was more hypoxic they have to increase PEEP to 8. Also has a lot of secretions when needed for secretions suctioning to try to become apneic per Staff. Patient currently receiving Avycaz and tobramycin. on TPN also 09/08 Patient remains in the ICU awake and alert status post tracheostomy. He has contractures of both upper and lower extremities He is complaining from pain in his lungs. He is status post flexible bronchoscopy and bronchoalveolar lavage yesterday. He has previous sputum culture positive for Pseudomonas currently covered with ceftazidime and tobramycin. He is also on Lovenox 90 mg 09/09 Patient still in the ICU on mechanical ventilation via tracheostomy. PEEP is 8.0 as is yesterday Also he spiked little fever to 100.7. IV vancomycin is added to tobramycin and ceftazidime He is getting also bronchoscopy follow-up culture results 09/10 Patient feels clinically the same, he still getting breathing via mechanical ventilation through his tracheostomy with PEEP of 8. Patient feels he is required suctioning through his tracheostomy tube. He d enies chest pain or pain anywhere else he can communicate by head signs and gestures. Hemodynamically stable and afebrile hemoglobin 7.4 platelet count 73 Glucose is controlled potassium 3.3 He remains on broad-spectrum antibiotic Rocephin at this time tobramycin and IV vancomycin added yesterday because he had low-grade fever. He is getting TPN. IV fluid Ringer lactate was stopped and patient was started on IV Lasix 20 mg 3 times a day continue with therapeutic dose of Lovenox as well 09/11 Patient remains in the ICU Remains on mechanical ventilation via tracheostomy He status post bronchoalveolar lavage 2 days ago, culture is growing Pseudomonas aeruginosa and corynebacterium Patient remains on broad-spectrum antibiotics with IV vancomycin, tobramycin, ceftazidime On IV Lasix also is on therapeutic dose of Lovenox 90 mg twice daily No IV fluids 09/12 Patient remains in the ICU Clinically close to what he was over the last 2 days still getting oxygen via his tracheostomy He remains on broad-spectrum antibiotic with Ceftin this time and IV vancomycin. Also he is on IV Lasix 20 mg and therapeutic dose of Lovenox. 09/13 Patient remains in the ICU on mechanical ventilation via tracheostomy Patient looks better today, he breathing better Less secretion Fentanyl patch increased 09/14. Patient seen and examined. Patient continues to be on mechanical ventilation via trach mask. Currently on TPN. Currently on IV Zerbaxa and vancomycin 09/15. Patient seen and examined.Vital signs done showed the patient overnight, heart rate 106, blood pressure 107/40, currently on ventilation. Labs reviewed showed WBC 7.27, hemoglobin 7.5, sodium 148 on potassium 4.3, BUN 23, creatinine 0.47 09/16. Patient seen and examined labs reviewed showing WBC 5.45, hemoglobin 9.6, platelet count 131, sodium 146, potassium 4.1, BUN 20, creatinine 0.47. Continue small amount of Levophed. Currently on Zerbaxa and vancomycin. Currently on TPN REVIEW OF SYSTEMS: Review of system cannot be obtained as patient currently mechanical ventilation via trach mask PHYSICAL EXAMINATION: GENERAL: The patient is alert, ill looking HEENT: Pupils are round and equally reacting to light. EOMI. No scleral icterus. No conjunctival pallor. Normocephalic, atraumatic. No pharyngeal erythema. No thyromegaly. Trach collar seen CARDIOVASCULAR: S1 and S2 present. No murmurs, rubs, or gallops. PULMONARY: Coarse breath sounds bilaterally, no wheeze ABDOMEN: Soft, ostomy seen MUSCULOSKELETAL: No joint swelling or deformity. EXTREMITIES: No cyanosis, clubbing, or pedal edema. NEUROLOGICAL: Gross neurological examination did not reveal any focal deficits. SKIN: No rashes. Assessment and plan Acute on chronic hypoxic respiratory failure. Bilateral pleural effusion Chronic hypoxic and hypercapnic respiratory failure, vent dependent at night at home Bacterial pneumonia. History of severe tracheal stenosis, S/P tracheostomy. History of recurrent pneumonia, with cultures indicating multidrug-resistant Pseudomonas aeruginosa - Septic shock: Previous admission sputum was positive for Pseudomonas aeruginosa-: Clinically responding Repeat bronchoscopy on 09/07/2024 shows a positive Pseudomonas aeruginosa and corynebacterium in the BAL collected from the right lower lobe Currently on IV Zerbaxa, vancomycin Continue Levophed Strict I's and O's, daily weights, continue IV Lasix Being followed by pulmonary, and ID Patient has very poor prognosis -Loose stools negative for C. difficile Continue Metamucil - Normocytic anemia of chronic disease and hospital-acquired anemia from blood draws Follow H&H - Thrombocytopenia likely from sepsis Follow - Chronic quadriparesis. Including left foot drop. Left arm contracture. Some right hand contracture. Some movement in the right arm - Crohn's disease with double barrel ostomy bag in place since 09/2021 Continue TPN History of DVT. History of CVA. History of right below-knee amputation. Previous history of asystole/cardiac arrest, 2021. Continue home med Labs and medication were reviewed.. Continue same treatment. Continue with symptomatic treatment. Resume home medication. Monitor labs and vitals. DVT and GI prophylaxis. Further recommendations as per clinical course of the patient Dictation was produced using [employer] dictation software. please excuse any grammatical, word or spelling errors. Objective - Vital Signs Vital signs: Vital Signs Temp 101.6 F H 09/16/24 12:00 Pulse 120 H 09/16/24 12:00 Resp 20 09/16/24 12:00 BP 125/47 09/16/24 12:00 Pulse Ox 93 L 09/16/24 12:00 FiO2 100 09/16/24 12:00 Intake & Output 09/15/24 09/16/24 09/16/24 18:59 06:59 18:59 Intake Total 2049.392 1957.941 721.991 Output Total 2570 2090 1095 Balance -520.608 -132.059 -373.009 Weight 100.3 kg 102 kg Intake: IV 110 0.9 110 Intake, IV Titration 1114.392 937.941 126.991 Amount Ceftolozane/Tazobactam 3 100 gm In Sodium Chloride 0.9 % 100 ml @ 100 mls/hr IV Q8HR [facility] Rx#:[id number] Magnesium Sulfate gm 2 gm 1089 Sodium Phosphate 30 mmol Potassium Chloride 80 meq Sodium Acetate 60 meq Calcium Gluconate 0.5 gm In Amino Acids 5 %/ Dextrose 20 % 1,000 ml @ 75 mls/hr IV .BY DURATION ANNIE Rx#:[id number] Norepinephrine 8 mg In 25.392 337.941 126.991 Sodium Chloride 0.9% 250 ml @ 0.03 MCG/KG/MIN 5. 003 mls/hr IV .Q24H ANNIE Rx#:[id number] Vancomycin 1,500 mg In 500 Sodium Chloride 0.9% 500 ml 500 ml @ 167 mls/hr IVPB Q16H [facility] Rx#: [id number] TPN/PPN 935 910 595 0.9 110 10 70 TPN 825 900 525 Output: Gastric Drainage 1300 Urine 520 1390 1095 Stool 750 700 Other: Voiding Method Indwelling Catheter Indwelling Catheter Indwelling Catheter - Labs CBC & Chem 7: 09/16/24 05:40 09/16/24 05:40 Labs: Abnormal Lab Results - Last 24 Hours (Table) 09/16/24 09/16/24 Range/Units 05:40 05:40 RBC 3.07 L (4.40-5.60) 10*6/uL Hgb 7.6 L (13.0-17.0) g/dL Hct 26.8 L (39.6-50.0) % MCH 24.8 L (27.0-32.0) pg MCHC 28.4 L (32.0-37.0) g/dL Plt Count 131 L (140-440) 10*3/uL Immature Plt Fraction 10.8 H (1.1-6.1) % Sodium 146 H (137-145) mmol/L Chloride 109 H (98-107) mmol/L Carbon Dioxide 33 H (22-30) mmol/L Creatinine 0.47 L (0.66-1.25) mg/dL Glucose 163 H (74-99) mg/dL Calcium 7.5 L (8.4-10.2) mg/dL Total Bilirubin 5.1 H (0.2-1.3) mg/dL Albumin 2.2 L (3.5-5.0) g/dL
[2024-09-16] MEDS: FLUCONAZOLE IN NACL,ISO-OSM 400 MG in SALINE 1 200ML.BAG IVPB SCH (21:27)
[2024-09-17 02:39] LABS: Glucose,Whole Blood 177 mg/dL (70-110)
[2024-09-17 03:13] LABS: VBG HCO3 29.0 mmol/L (24-28); VBG PCO2 59.0 mmHg (37-51); VBG PH 7.3 (7.31-7.41)
--- NOTE | 2024-09-17 03:26 | XR ---
EXAM: XR Chest, 1 View CLINICAL HISTORY: Increased SOB TECHNIQUE: Frontal view of the chest. COMPARISON: 09/14/2024 FINDINGS: Lungs: Moderate-large amount of airspace opacities throughout both lungs, slightly increased over left lower lung zone, can be related to underinflation. Pleural space: Bilateral pleural effusions, increased on the left. Mediastinum: Unchanged. Bones/joints: Unchanged. Tubes, lines and devices: Tracheostomy tube and left jugular central venous catheter are unchanged. IMPRESSION: 1. Moderate-large amount of airspace opacities throughout both lungs, slightly increased over left lower lung zone, can be related to underinflation. 2. Bilateral pleural effusions, increased on the left.
[2024-09-17 04:42] LABS: HCT 25.7 % (39.6-50.0); Immature Platelet Fraction 16.0 % (1.1-6.1); MCH 24.4 pg (27.0-32.0); MCHC 26.8 g/dL (32.0-37.0); MCV 90.8 fL (80.0-97.0); RBC 2.83 10*6/uL (4.40-5.60); RDW 19.5 % (11.5-14.5); WBC 7.24 10*3/uL (4.50-10.00)
[2024-09-17 04:48] LABS: HGB 6.9 g/dL (13.0-17.0)
[2024-09-17 05:05] LABS: Platelet Count 96 10*3/uL (140-440)
[2024-09-17 05:08] LABS: ALT 40 U/L (4-49); AST 45 U/L (17-59); African American GFR (CKD) >90 (>60 ml/min/1.73 sqM); Albumin 1.9 g/dL (3.5-5.0); Alkaline Phosphatase 73 U/L (38-126); Anion Gap 5 mmol/L; Blood Urea Nitrogen 25 mg/dL (9-20); Calcium 7.5 mg/dL (8.4-10.2); Carbon Dioxide 29 mmol/L (22-30); Chloride 108 mmol/L (98-107); Glucose 165 mg/dL (74-99); Magnesium 2.0 mg/dL (1.6-2.3); Non-African American GFR(CKD) >90 (>60 ml/min/1.73 sqM); Potassium 4.2 mmol/L (3.5-5.1); Sodium 142 mmol/L (137-145); Total Protein 6.2 g/dL (6.3-8.2)
--- NOTE | 2024-09-17 06:02 | XR ---
EXAM: XR Chest, 1 View CLINICAL HISTORY: Desaturation TECHNIQUE: Frontal view of the chest. COMPARISON: Same day at 2:19 a.m.. IMPRESSION: Large left pleural effusion and associated airspace opacities in left lung are increased. No substantial change otherwise.
[2024-09-17] MEDS: VASOPRESSIN 20 UNIT in SODIUM CHLORIDE 0.9% 50 ML IV SCH (07:00)
--- NOTE | 2024-09-17 07:12 | P.PCN ---
Date of Procedure: 09/17/24 Preoperative Diagnosis: Pneumonia, sepsis, septic shock Postoperative Diagnosis: Pneumonia, sepsis, septic shock Procedure(s) Performed: Insertion left brachial arterial line Indications for Procedure: Continuous hemodynamic monitoring and frequent blood draws Description of Procedure: Informed consent was obtained, and a procedural timeout was performed . The patient was placed in supine position. The left brachial region was prepared in a sterile fashion, and a sterile drape was applied. The left brachial artery was palpated, easily cannulated, and a guidewire was placed. A Cook catheter was inserted over the guidewire, and the guidewire was removed. There was good arterial blood flow, good arterial waveform, and no complications. The line was secured with using a 3-0 silk suture.
[2024-09-17 07:59] LABS: ABG HCO3 29 mmol/L (21-25); ABG PO2 77 mmHg (83-108); ABG TCO2 32 mmol/L (19-24)
[2024-09-17 08:02] LABS: ABG PCO2 88 mmHg (35-45); ABG PH 7.13 (7.35-7.45); Allen Test Performed? no
--- NOTE | 2024-09-17 08:09 | XR ---
EXAMINATION TYPE: XR chest 1V portable DATE OF EXAM: 09/17/2024 5:24 AM COMPARISON: 09/17/2024 CLINICAL INDICATION: Male, 49 years old with history of Mechanical ventilation, FINDINGS: Indwelling tubes and catheters are unchanged. Scattered patchy infiltrates throughout both lung craft persist with improving aeration within the l eft lung. Stable appearance of the cardio-mediastinal structures at this time. IMPRESSION: 1. Scattered patchy infiltrates throughout both lung craft persist with improving aeration within t he left lung. [facility], , 09/17/2024 8:07 AM
[2024-09-17] MEDS: HYDROCORTISONE SUCCINATE 100 MG/2 ML VIAL IV SCH (08:31)
[2024-09-17] MEDS: FUROSEMIDE 10 MG/ML 4 ML VIAL IV SCH (08:31)
--- NOTE | 2024-09-17 08:38 | P.PN ---
Subjective Progress Note Date: 09/16/24 Principal diagnosis: Reason for follow-up is sepsis and pneumonia Patient is a 49-year-old male with a past medical history significant for CVA TIA DVT pneumonia history of complicated Crohn's disease in this patient who did have multiple abdominal surgeries patient also have a tracheostomy has been brought to the hospital with Generalized weakness did have a fever c oncerning for pneumonia on today's evaluation that is 09/16/2024, Patient did spike a fever of 101.6 F at noon patient has been tachycardic but not hypotensive o remains to be intubated on the vent through the trach. Patient white count is 5.445 creatinine 0.47 blood culture repeat currently pending Objective - Vital Signs Vital signs: Vital Signs Temp 101.6 F H 09/16/24 12:00 Pulse 120 H 09/16/24 12:00 Resp 20 09/16/24 12:00 BP 125/47 09/16/24 12:00 Pulse Ox 93 L 09/16/24 12:00 FiO2 100 09/16/24 12:00 Intake & Output 09/15/24 09/16/24 09/16/24 18:59 06:59 18:59 Intake Total 2049.392 1957.941 636.991 Output Total 2570 2090 945 Balance -520.608 -132.059 -308.009 Weight 100.3 kg 102 kg Intake: IV 110 0.9 110 Intake, IV Titration 1114.392 937.941 126.991 Amount Ceftolozane/Tazobactam 3 100 gm In Sodium Chloride 0.9 % 100 ml @ 100 mls/hr IV Q8HR [facility] Rx#:[id number] Magnesium Sulfate gm 2 gm 1089 Sodium Phosphate 30 mmol Potassium Chloride 80 meq Sodium Acetate 60 meq Calcium Gluconate 0.5 gm In Amino Acids 5 %/ Dextrose 20 % 1,000 ml @ 75 mls/hr IV .BY DURATION ANNIE Rx#:[id number] Norepinephrine 8 mg In 25.392 337.941 126.991 Sodium Chloride 0.9% 250 ml @ 0.03 MCG/KG/MIN 5. 003 mls/hr IV .Q24H [facility] Rx#:[id number] Vancomycin 1,500 mg In 500 Sodium Chloride 0.9% 500 ml 500 ml @ 167 mls/hr IVPB Q16H [facility] Rx#: [id number] TPN/PPN 935 910 510 0.9 110 10 60 TPN 825 900 450 Output: Gastric Drainage 1300 Urine 520 1390 945 Stool 750 700 Other: Voiding Method Indwelling Catheter Indwelling Catheter Indwelling Catheter - Exam GENERAL DESCRIPTION: Middle-age male intubated on the vent RESPIRATORY SYSTEM: Unlabored breathing , decreased breath sounds at bases HEART: S1 S2 regular rate and rhythm , ABDOMEN: Soft , no tenderness EXTREMITIES: Swelling to the leg - Labs CBC & Chem 7: 09/17/24 04:22 09/17/24 04:22 Labs: Abnormal Lab Results - Last 24 Hours (Table) 09/16/24 09/16/24 Range/Units 05:40 05:40 RBC 3.07 L (4.40-5.60) 10*6/uL Hgb 7.6 L (13.0-17.0) g/dL Hct 26.8 L (39.6-50.0) % MCH 24.8 L (27.0-32.0) pg MCHC 28.4 L (32.0-37.0) g/dL Plt Count 131 L (140-440) 10*3/uL Immature Plt Fraction 10.8 H (1.1-6.1) % Sodium 146 H (137-145) mmol/L Chloride 109 H (98-107) mmol/L Carbon Dioxide 33 H (22-30) mmol/L Creatinine 0.47 L (0.66-1.25) mg/dL Glucose 163 H (74-99) mg/dL Calcium 7.5 L (8.4-10.2) mg/dL Total Bilirubin 5.1 H (0.2-1.3) mg/dL Albumin 2.2 L (3.5-5.0) g/dL Assessment and Plan (1) Pneumonia Current Visit: Yes Status: Acute Code(s): J18.9 - PNEUMONIA, UNSPECIFIED ORGANISM SNOMED Code(s): 808680937 (2) Sepsis Current Visit: Yes Status: Acute Code(s): A41.9 - SEPSIS, UNSPECIFIED ORGANISM SNOMED Code(s): 11845644 Plan: 1patient is a hospital with sepsis in this patient who did have fever tachycardia elevated lactic acid upon meeting criteria for SIRS/sepsis source likely pneumonia in this patient who did have history of recurrent multidrug- resistant Pseudomonas pneumonia and will need to cover for that pathogen while waiting for the culture to be finalized 2-blood cultures has been negative and sputum culture growing Pseudomonas that is sensitive to Avycaz and tobramycin, Zerbaxa sensitivity not reported 3-patient is status post bronchoscopy lavage results currently growing Pseudomonas that is resistant to Avycaz and corynebacterium, sensitivity on corynebacterium is pending 4-patient did have a fever question of related to the central line and possible yeast, patient is adequately covered Zerbaxa day number 6 out of 7 is also covered with vancomycin still waiting for sensitivity on the corynebacterium unable to use Zyvox because of drug interaction will need antifungal if has persistent fever Dictation was produced using [employer] dictation software. please excuse any grammatical, word or spelling errors. Time with Patient: Less than 30
[2024-09-17 08:39] LABS: ABG HCO3 29 mmol/L (21-25); ABG PO2 77 mmHg (83-108); ABG TCO2 31 mmol/L (19-24)
[2024-09-17 08:43] LABS: ABG PCO2 79 mmHg (35-45); ABG PH 7.17 (7.35-7.45); Allen Test Performed? no
[2024-09-17] MEDS: SODIUM CHLORIDE 0.9% 1,000 ML IV ONE (09:20)
[2024-09-17 12:29] LABS: Basophils # (A) 0.06 10*3/uL (0.00-0.10); Basophils % (A) 0.3 %; Eosinophils # (A) 0.03 10*3/uL (0.04-0.35); Eosinophils % (A) 0.1 %; HCT 29.1 % (39.6-50.0); Lymphocytes # (A) 0.86 10*3/uL (0.90-5.00); Lymphocytes % (A) 4.3 %; MCH 26.2 pg (27.0-32.0); MCHC 29.2 g/dL (32.0-37.0); MCV 89.8 fL (80.0-97.0); Monocytes # (A) 0.94 10*3/uL (0.20-1.00); Monocytes % (A) 4.7 %; Neutrophils # (A) 17.91 10*3/uL (1.80-7.70); Neutrophils % (A) 89.5 %; RBC 3.24 10*6/uL (4.40-5.60); RDW 20.0 % (11.5-14.5); WBC 20.03 10*3/uL (4.50-10.00)
[2024-09-17 12:35] LABS: HGB 8.5 g/dL (13.0-17.0); Platelet Count 199 10*3/uL (140-440)
[2024-09-17 12:45] LABS: Glucose,Whole Blood 196 mg/dL (70-110)
--- NOTE | 2024-09-17 13:27 | P.PN ---
Subjective Progress Note Date: 09/17/24 Principal diagnosis: Acute on chronic hypoxic respiratory failure secondary to bilateral pneumonia secondary to multidrug resistant Pseudomonas aeruginosa. This is a 49-year-old white male familiar to my service, history of paraplegia, home vent dependent, history of tracheostomy, patient had multiple admissions to the ICU for recurrent episodes of pneumonia and respiratory failure requiring ventilatory support. On his last admission patient was eventually discharged home on a home ventilator, and this was back on 08/04/2024. Patient was discharged home with a PICC line, patient was in the ER yesterday on 08/28 for abnormal labs mostly low potassium and low sodium discharged home however he came back today complaining of shortness of breath, has been ventilator depend ent all along. Chest x-ray showed basically bibasilar opacities/atelectasis, doubt pneumonia, the findings in the left lower lobe are chronic. Patient did have previous history of pneumonia involving the left lower lobe and he had multiple bronchoscopies in the past. Bronchial cultures and sputum cultures have been positive in the past for mostly Pseudomonas aeruginosa. Patient was seen in the ER today, and he is already on cefepime for empiric coverage for potential left lower lobe pneumonia, patient had abnormal electrolytes with relatively low sodium low potassium, no leukocytosis, normal renal profile, blood pressure was soft, and he was given fluid boluses. Lactic acid was 2.1, D-dimer is normal, patient was admitted, and this consult was initiated. 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 09/10/2024, patient is awake and alert and communicating. Continues to have on and off episodes of shortness of breath while being on a mechanical ventilator. Oxygenation is borderline and the patient's pulse ox remains low. Unable to obtain any blood gases as the patient has declined arterial blood draws. He is on assist-control mode rate of 20, tidal volume of 450, FiO2 of 70% with a PEEP of 10. Remains on TPN at rate of 35 cc an hour and lactated Ringer at rate of 50 cc an hour. Fluid balance is +2.6 L over the past 24 hours.the white cell count is 6.3, hemoglobin is at 7.4, platelet count is a 73 and the patient remains on therapeutic dose of Lovenox. The patient's sodium levels at 143, K is at 3.3, bicarb is at 40 with a BUN of 21 and a creatinine of 0.8. Blood sugar is 140. The most recent lavage from the right lower lobe was positive for Pseudomonas aeruginosa and corynebacterium. The patient remains on a combination of ceftazidime antibacterial combination, tobramycin and IV van comycin. Output from ileostomy is in order of 800 cc over the past 8 hours. Remains on IV Lasix. Chest x-ray is unchanged and it shows bilateral pulmonary infiltrates, diffuse increased interstitial lung markings, lines and catheters are in place, tracheostomy tube is in place. 09/11/2024, the patient is stable, awake and alert and communicating. Remains on TPN for nutritional support with rate of 75 cc an hour. Remains on the same mechanical ventilator settings and the patient remains on assist-control mode at rate of 20, tidal volume of 450, FiO2 of 60% with a PEEP of 8. Fluid balance is -50 cc over the past 24 hours and the patient remains on IV Lasix 20 mg every 8 hours. The biotic coverage remains unchanged and the patient remains on a combination of ceftazidime IV Bactrim, tobramycin and vancomycin. The white cell count is at 4.7 with a hemoglobin of 7.1 and a platelet count of 89. BUN is 20 with a creatinine of 0.25. Sodium levels at 142. Serum iron levels at 16. Vancomycin trough is at 17. Follow-up chest x-ray from today shows stable bilateral pulmonary filtrates and pleural effusions bilaterally. Tracheostomy tube remains in good location. The patient continues to have high output through the ileostomy. Currently afebrile. No cardiac arrhythmias have been noted. 09/12/2024, patient is resting comfortably in bed. Remains on a mechanical ventilator. Unable to wean. Chest x-ray still showing bilateral pulmonary filtrates consistent with pneumonia. The patient is on assist-control mode at rate of 20, tidal volume of 450, FiO2 of 50% and a PEEP of 8. Remains negative fluid balance as the patient is being diuresed with IV Lasix. Fluid balance is -1 L over the past 24 hours. Remains on Lasix 20 mg IV push every 8 hours. Hemoglobin from this morning was 5.8. Repeat hemoglobin came back at 7.4. Platelet counts are stable. No evidence of any GI bleeding. Remains on Lovenox therapeutic dose. Remains on TPN at rate of 75 cc an hour. White cell count is at 5, platelet count is at 93, BUN is 25 with a creatinine 0.4. Sodium levels at 144 and a potassium level is at 3.6. Ileostomy still functioning. Remains on broad-spectrum antibiotics. Remains on ceftolozane/tazobactam. Remains on vancomycin. Remains on stress dose hydrocortisone. 09/13/2024, the patient is being seen for a follow-up. No change in his condition over the past 24 hours. Remains on a mechanical ventilator. Awake and alert and communicating. Started on fentanyl patch and his pain is under better control and the patient is using fentanyl patch 75 mcg every 72 hours. Remains assist-control mechanical ventilation at rate of 20, tidal volume of 450, FiO2 50% with a PEEP of 8. Chest x-ray from today shows stable bilateral pulmonary infiltrates, no significant change compared to yesterday and the tracheostomy tube remains in place. The patient continues to have multifocal airspace disease. Fluid balance is +30 cc over the past 24 hours. TPN is running at a rate of 75 cc an hour. Afebrile. Hemoglobin in this morning was at 5.8. Recheck was 6.1. The platelet count is 817. Sodium is at 148, potassium 3.2, BUN 26 with a creatinine of 0.44. Serum bicarb is at 38. The patient has a triglyceride level of 152. Remains on ceftolozane tazobactam and vancomycin. Seen today on 09/14/24, patient remains intubated, mechanically ventilated, ar ousable, follows simple instructions, he is on assist-control rate of 20 tidal volume 450 FiO2 50% and PEEP of 6 patient is spiking temps he had a temp as high as 102 remains on Zerbaxa and vancomycin his hemoglobin is low today 6.9 will give a unit of packed RBCs still requiring norepinephrine at 0.12 mcg/kg/min he is also on TPN at 75 cc/h. Not much of a change noted in his overall clinical picture, patient remains quite ill and septic. Labs today show WBC of 6.4 hemoglobin 6.9 electrolytes are normal sodium is 147 renal profile is normal, chest x-ray continues to show multifocal airspace opacities and small bilateral pleural effusions. Seen today on 09/15/2024, patient was seen in consultation, remains in the ICU intubated and mechanically ventilated, assist-control rate of 20 tidal volume 450 FiO2 60% PEEP of 8 no ABG done today. However his chest x-ray continues to show significant bibasilar infiltrates right more so than left. Patient is still requiring norepinephrine at 0.08 mcg/kg/min. Sputum cultures were noted positive for Pseudomonas and corynebacterium patient remains on Zerbaxa and vancomycin. Looking back at the clinical history of this patient and his previous admissions and previous notes, I believe we have not making any progress or any significant improvement since admission. Today I had a chance to discuss CODE STATUS again with the patient and explained to him that his overall picture does not seem to be very promising, I also discussed with the patient the option of hospice, patient is undecided at this point, he will think about it. WBC count is 7.07 hemoglobin 7.5 patient did receive a unit of packed RBCs yesterday for hemoglobin of 6.9. Electrolytes are normal renal profile is normal, chest x-ray continues to show infiltrates mostly in the right lower lobe more so than the left lower lobe. Patient was seen today on 09/16/2024, patient is basically about the same. Hardly any improvement noted in the last few weeks since admission, patient remains intubated, mechanically ventilated, same ventilator settings, assist-control rate of 20 tidal volume 450 FiO2 60% and PEEP of 8 ABG was not done today, no easy access, attempted to place arterial lines in this patient, but could not pass a wire although the arteries including femoral artery and left brachial artery were easily cannulated. No further attempts made for arterial access. Patient remains on norepinephrine at 0.13 mcg/kg/min still on TPN at 75 cc/h still on Zerbaxa and vancomycin chest x-ray showed worsening today of bilateral infiltrates possibly some component of fluid overload and I recommended Lasix 20 mg IV push twice daily. Patient seems to be quite swollen and edematous. WBC count is 5.4 hemoglobin 7.6 electrolytes showed sodium of 146 potassium 4.1 BUN 20 creatinine 0.47 Patient was seen today on 09/17/2024, patient seems to be deteriorating steadily over the last 24 hours, he is developing profound hypotension requiring pressors in the form of Levophed at 0.4 mcg/kg/min he is also on vasopressin at 0.04 units/min he is on TPN at 75 cc/h hemoglobin is noted to be low at 6.9, patient has positive yeast in the blood/fungemia he is on fluconazole, this is being addressed by infectious disease on the case. Earlier ABG showed a pO2 of 77 pCO2 88 pH of 7.13, Vent settings were adjusted with increasing the rate to 36. He is now on tidal volume of 350 FiO2 100% PEEP is 10 and rate is 36. Another ABG is pending. But clearly patient is taking a downhill clinical course. Patient is quite septic, I will likely change his central line, and place a new central line in this patient today and remove the old central line/PICC line. Patient will receive a unit of packed RBCs for hemoglobin of 6.9. Considering the change in his overall clinical status, discussed his condition with son, would like to keep his dad as a full code, he is very well aware of the poor prognostic picture and how ill his dad is. Would like to keep him a full code. WBC count today is 20.03 hemoglobin 8.5, basic metabolic profile is normal BUN is 25 creatinine 0.4 total protein is 6.9 albumin is 1.9. Objective - Vital Signs Vital signs: Vital Signs Temp 99.5 F 09/17/24 12:00 Pulse 111 H 09/17/24 12:30 Resp 36 H 09/17/24 12:30 BP 114/42 09/17/24 10:15 Pulse Ox 96 09/17/24 12:30 FiO2 100 09/17/24 12:00 Intake & Output 09/16/24 09/17/24 09/17/24 18:59 06:59 18:59 Intake Total 2417.824 1535 2297.065 Output Total 2540 1175 130 Balance -122.550 687 9977.065 Weight 102.4 kg Intake: IV 710 1607 0.9 110 40 Ceftolozane/Tazobactam 3 100 gm In Sodium Chloride 0.9 % 100 ml @ 100 mls/hr IV Q8HR [facility] Rx#:[id number] Fluconazole in NaCl,Iso- 100 Osm 400 mg In Saline 1 200ml.bag @ 100 mls/hr IVPB HS [facility] Rx#:[id number] Sodium Chloride 0.9% 1, 1000 000 ml @ 999 mls/hr IV . Q1H1M [facility] Rx#:[id number] TPN 300 Vancomycin 1,500 mg In 500 167 Sodium Chloride 0.9% 500 ml 500 ml @ 167 mls/hr IVPB Q16H [facility] Rx#: [id number] Intake, IV Titration 1312.824 218.065 Amount Magnesium Sulfate gm 2 gm 1089 Sodium Phosphate 30 mmol Potassium Chloride 80 meq Sodium Acetate 60 meq Calcium Gluconate 0.5 gm In Amino Acids 5 %/ Dextrose 20 % 1,000 ml @ 75 mls/hr IV .BY DURATION [facility] Rx#:[id number] Norepinephrine 8 mg In 223.824 195.727 Sodium Chloride 0.9% 250 ml @ 0.03 MCG/KG/MIN 5. 003 mls/hr IV .Q24H [facility] Rx#:[id number] Vasopressin 20 unit In 22.338 Sodium Chloride 0.9% 50 ml @ 0.03 UNITS/MIN 4.59 mls/hr IV .Q11H7M [facility] Rx# :[id number] Tube Feeding 120 TPN/PPN 1105 825 75 0.9 130 TPN 975 825 75 Blood Product 277 Rc Pheresis As-3 Unit 277 [id number] Output: Gastric Drainage 900 Urine 1640 1175 130 Other: Voiding Method Indwelling Catheter Indwelling Catheter Indwelling Catheter ABP, PAP, CO, CI - Last Documented Arterial Blood Pressure 122/45 - Exam GENERAL EXAM: 49-year-old white male intubated mechanically ventilated patient has a chronic tracheostomy, patient is sedated on propofol. HEAD: Normocephalic. EYES: Normal reaction of pupils, equal size. NOSE: Clear with pink turbinates. THROAT: Tracheostomy tube secured in place. NECK: No masses, no JVD. CHEST: No chest wall deformity. LUNGS: Equal air entry with coarse rhonchi bilaterally. CVS: S1 and S2 normal with no audible murmur, regular rhythm. ABDOMEN: Enterocutaneous fistula over the abdominal wall. No hepatosplenomegaly, normal bowel sounds. SKIN: No rashes, patient is quite edematous CENTRAL NERVOUS SYSTEM: Could not assess, patient is fully sedated EXTREMITIES: Bilateral edema, extensive muscle atrophy. Contractures. There is no peripheral edema. No clubbing, no cyanosis. Peripheral pulses are intact. Right below-knee amputation is noted. - Labs CBC & Chem 7: 09/17/24 12:08 09/17/24 04:22 Labs: Abnormal Lab Results - Last 24 Hours (Table) 09/17/24 09/17/24 09/17/24 Range/Units 02:37 03:00 04:22 WBC (4.50-10.00) 10*3/uL RBC (4.40-5.60) 10*6/uL Hgb (13.0-17.0) g/dL Hct (39.6-50.0) % MCH (27.0-32.0) pg MCHC (32.0-37.0) g/dL Plt Count (140-440) 10*3/uL MPV (9.5-12.2) fL Immature Gran # (0.00-0.04) 10*3/uL Neutrophils # (1.80-7.70) 10*3/uL Lymphocytes # (0.90-5.00) 10*3/uL Eosinophils # (0.04-0.35) 10*3/uL Immature Plt Fraction (1.1-6.1) % ABG pH (7.35-7.45) ABG pCO2 (35-45) mmHg ABG pO2 (83-108) mmHg ABG HCO3 (21-25) mmol/L ABG Total CO2 (19-24) mmol/L ABG O2 Saturation (94-97) % VBG pH 7.30 L (7.31-7.41) VBG pCO2 59 H (37-51) mmHg VBG HCO3 29 H (24-28) mmol/L Hemoglobin (13.0-17.5) gm/dL Chloride 108 H (98-107) mmol/L BUN 25 H (9-20) mg/dL Creatinine 0.40 L (0.66-1.25) mg/dL Glucose 165 H (74-99) mg/dL POC Glucose (mg/dL) 177 H (70-110) mg/dL Calcium 7.5 L (8.4-10.2) mg/dL Total Bilirubin 6.2 H (0.2-1.3) mg/dL Total Protein 6.2 L (6.3-8.2) g/dL Albumin 1.9 L (3.5-5.0) g/dL Crossmatch 09/17/24 09/17/24 09/17/24 Range/Units 04:22 05:28 07:56 WBC (4.50-10.00) 10*3/uL RBC 2.83 L (4.40-5.60) 10*6/uL Hgb 6.9 L* (13.0-17.0) g/dL Hct 25.7 L (39.6-50.0) % MCH 24.4 L (27.0-32.0) pg MCHC 26.8 L (32.0-37.0) g/dL Plt Count 96 L (140-440) 10*3/uL MPV 13.9 H (9.5-12.2) fL Immature Gran # (0.00-0.04) 10*3/uL Neutrophils # (1.80-7.70) 10*3/uL Lymphocytes # (0.90-5.00) 10*3/uL Eosinophils # (0.04-0.35) 10*3/uL Immature Plt Fraction 16.0 H (1.1-6.1) % ABG pH 7.13 L* (7.35-7.45) ABG pCO2 88 H* (35-45) mmHg ABG pO2 77 L (83-108) mmHg ABG HCO3 29 H (21-25) mmol/L ABG Total CO2 32 H (19-24) mmol/L ABG O2 Saturation 92.9 L (94-97) % VBG pH (7.31-7.41) VBG pCO2 (37-51) mmHg VBG HCO3 (24-28) mmol/L Hemoglobin 7.5 L (13.0-17.5) gm/dL Chloride (98-107) mmol/L BUN (9-20) mg/dL Creatinine (0.66-1.25) mg/dL Glucose (74-99) mg/dL POC Glucose (mg/dL) (70-110) mg/dL Calcium (8.4-10.2) mg/dL Total Bilirubin (0.2-1.3) mg/dL Total Protein (6.3-8.2) g/dL Albumin (3.5-5.0) g/dL Crossmatch See Detail 09/17/24 09/17/24 09/17/24 Range/Units 08:37 12:08 12:44 WBC 20.03 H (4.50-10.00) 10*3/uL RBC 3.24 L (4.40-5.60) 10*6/uL Hgb 8.5 L D (13.0-17.0) g/dL Hct 29.1 L (39.6-50.0) % MCH 26.2 L (27.0-32.0) pg MCHC 29.2 L (32.0-37.0) g/dL Plt Count (140-440) 10*3/uL MPV 13.2 H (9.5-12.2) fL Immature Gran # 0.23 H (0.00-0.04) 10*3/uL Neutrophils # 17.91 H (1.80-7.70) 10*3/uL Lymphocytes # 0.86 L (0.90-5.00) 10*3/uL Eosinophils # 0.03 L (0.04-0.35) 10*3/uL Immature Plt Fraction (1.1-6.1) % ABG pH 7.17 L* (7.35-7.45) ABG pCO2 79 H* (35-45) mmHg ABG pO2 77 L (83-108) mmHg ABG HCO3 29 H (21-25) mmol/L ABG Total CO2 31 H (19-24) mmol/L ABG O2 Saturation 93.9 L (94-97) % VBG pH (7.31-7.41) VBG pCO2 (37-51) mmHg VBG HCO3 (24-28) mmol/L Hemoglobin 7.8 L (13.0-17.5) gm/dL Chloride (98-107) mmol/L BUN (9-20) mg/dL Creatinine (0.66-1.25) mg/dL Glucose (74-99) mg/dL POC Glucose (mg/dL) 196 H (70-110) mg/dL Calcium (8.4-10.2) mg/dL Total Bilirubin (0.2-1.3) mg/dL Total Protein (6.3-8.2) g/dL Albumin (3.5-5.0) g/dL Crossmatch Microbiology - Last 24 Hours (Table) 09/15/24 10:20 Blood Culture Gram Stain - Preliminary Blood Blood Culture - Preliminary Molecular ID Assessment and Plan Assessment: Impression: Acute on chronic hypoxic respiratory failure still intubated and mechanically ventilated, multifactorial but mostly related to multidrug- resistant Pseudomonas aeruginosa pneumonia. Septic shock, secondary to pneumonia patient is on Zerbaxa and vancomycin. Fungal anemia with positive yeast in blood cultures most likely source is his PICC line which needs to be removed and another line needs to be placed. However the patient at this point is not stable enough we will try to stabilize as much as possible before a new central line is attempted. Chronic hypoxic and hypercapnic respiratory failure, patient is ventilator dependent, patient has been recently on home ventilator History of severe tracheal stenosis History of tracheostomy History of recurrent pneumonias involving left lower lobe Tracheobronchomalacia History of DVT History of CVA History of right below-knee amputation History of asystole/cardiac arrest 2021. 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 Patient is maintained mostly on TPN. Bipedal edema with fluid overload hence patient was placed on Lasix. Recommendation: Today the patient is much worse, he is on more pressors, antibiotics, steroids stress doses of Solu-Cortef, and he is receiving antifungal therapy will need both central line to be removed and a new one placed in. We will continue to monitor in the ICU Continue present antibiotics, as ordered by infectious disease including Zerbaxa and vancomycin, continue fluconazole Continue ventilatory support Continue hemodynamic support requiring norepinephrine, and vasopressin Continue GI DVT prophylaxis with Protonix and Lovenox Continue nutritional support/TPN Updated his son on his condition declines changing CODE STATUS to DNR although he is made very well aware of poor prognostic picture. Continue bronchodilators/DuoNeb updrafts 4 times daily and as needed Patient is extremely ill and septic and now he has fungal septicemia and fungal anemia. Critical care time is 40minutes Extremely poor prognosis. We will continue to follow Time with Patient: Greater than 30
[2024-09-17] MEDS: ANIDULAFUNGIN 200 MG in SODIUM CHLORIDE 0.9% 200 ML IVPB ONE (14:40)
--- NOTE | 2024-09-17 16:20 | P.PN ---
Subjective Progress Note Date: 09/17/24 Principal diagnosis: Reason for follow-up is sepsis and pneumonia/candidemia Patient is a 49-year-old male with a past medical history significant for CVA TIA DVT pneumonia history of complicated Crohn's disease in this patient who did have multiple abdominal surgeries patient also have a tracheostomy has been brought to the hospital with Generalized weakness did have a fever concerning for pneumonia on today's evaluation that is 09/17/2024,the patient r did have improvement in his fever pattern with low-grade fever 100.6 F this morning patient is afebrile this afternoon patient however is requiring significant pressor support to maintain his blood pressure and on 100% FiO2 patient is lethargic no other changes reported by the nursing staff. Patient also noticed a worsening of the white count is up to 20.03 creatinine 0.40 blood culture with Bella Objective - Vital Signs Vital signs: Vital Signs Temp 99.5 F 09/17/24 12:00 Pulse 111 H 09/17/24 12:30 Resp 36 H 09/17/24 12:30 BP 114/42 09/17/24 10:15 Pulse Ox 96 09/17/24 12:30 FiO2 100 09/17/24 12:00 Intake & Output 09/16/24 09/17/24 09/17/24 18:59 06:59 18:59 Intake Total 2417.824 1535 2297.065 Output Total 2540 1175 130 Balance -122.533 055 3049.065 Weight 102.4 kg Intake: IV 710 1607 0.9 110 40 Ceftolozane/Tazobactam 3 100 gm In Sodium Chloride 0.9 % 100 ml @ 100 mls/hr IV Q8HR ANNIE Rx#:[id number] Fluconazole in NaCl,Iso- 100 Osm 400 mg In Saline 1 200ml.bag @ 100 mls/hr IVPB HS ANNIE Rx#:[id number] Sodium Chloride 0.9% 1, 1000 000 ml @ 999 mls/hr IV . Q1H1M ONE Rx#:[id number] TPN 300 Vancomycin 1,500 mg In 500 167 Sodium Chloride 0.9% 500 ml 500 ml @ 167 mls/hr IVPB Q16H [facility] Rx#: [id number] Intake, IV Titration 1312.824 218.065 Amount Magnesium Sulfate gm 2 gm 1089 Sodium Phosphate 30 mmol Potassium Chloride 80 meq Sodium Acetate 60 meq Calcium Gluconate 0.5 gm In Amino Acids 5 %/ Dextrose 20 % 1,000 ml @ 75 mls/hr IV .BY DURATION ANNIE Rx#:[id number] Norepinephrine 8 mg In 223.824 195.727 Sodium Chloride 0.9% 250 ml @ 0.03 MCG/KG/MIN 5. 003 mls/hr IV .Q24H ANNIE Rx#:[id number] Vasopressin 20 unit In 22.338 Sodium Chloride 0.9% 50 ml @ 0.03 UNITS/MIN 4.59 mls/hr IV .Q11H7M ANNIE Rx# :[id number] Tube Feeding 120 TPN/PPN 1105 825 75 0.9 130 TPN 975 825 75 Blood Product 277 Rc Pheresis As-3 Unit 277 [id number] Output: Gastric Drainage 900 Urine 1640 1175 130 Other: Voiding Method Indwelling Catheter Indwelling Catheter Indwelling Catheter ABP, PAP, CO, CI - Last Documented Arterial Blood Pressure 122/45 - Exam GENERAL DESCRIPTION: Middle-age male intubated on the vent RESPIRATORY SYSTEM: Unlabored breathing , decreased breath sounds at bases HEART: S1 S2 regular rate and rhythm , ABDOMEN: Soft , no tenderness EXTREMITIES: Swelling to the leg - Labs CBC & Chem 7: 09/17/24 12:08 09/17/24 04:22 Labs: Abnormal Lab Results - Last 24 Hours (Table) 09/17/24 09/17/24 09/17/24 Range/Units 02:37 03:00 04:22 WBC (4.50-10.00) 10*3/uL RBC (4.40-5.60) 10*6/uL Hgb (13.0-17.0) g/dL Hct (39.6-50.0) % MCH (27.0-32.0) pg MCHC (32.0-37.0) g/dL Plt Count (140-440) 10*3/uL MPV (9.5-12.2) fL Immature Gran # (0.00-0.04) 10*3/uL Neutrophils # (1.80-7.70) 10*3/uL Lymphocytes # (0.90-5.00) 10*3/uL Eosinophils # (0.04-0.35) 10*3/uL Immature Plt Fraction (1.1-6.1) % ABG pH (7.35-7.45) ABG pCO2 (35-45) mmHg ABG pO2 (83-108) mmHg ABG HCO3 (21-25) mmol/L ABG Total CO2 (19-24) mmol/L ABG O2 Saturation (94-97) % VBG pH 7.30 L (7.31-7.41) VBG pCO2 59 H (37-51) mmHg VBG HCO3 29 H (24-28) mmol/L Hemoglobin (13.0-17.5) gm/dL Chloride 108 H (98-107) mmol/L BUN 25 H (9-20) mg/dL Creatinine 0.40 L (0.66-1.25) mg/dL Glucose 165 H (74-99) mg/dL POC Glucose (mg/dL) 177 H (70-110) mg/dL Calcium 7.5 L (8.4-10.2) mg/dL Total Bilirubin 6.2 H (0.2-1.3) mg/dL Total Protein 6.2 L (6.3-8.2) g/dL Albumin 1.9 L (3.5-5.0) g/dL Crossmatch 09/17/24 09/17/24 09/17/24 Range/Units 04:22 05:28 07:56 WBC (4.50-10.00) 10*3/uL RBC 2.83 L (4.40-5.60) 10*6/uL Hgb 6.9 L* (13.0-17.0) g/dL Hct 25.7 L (39.6-50.0) % MCH 24.4 L (27.0-32.0) pg MCHC 26.8 L (32.0-37.0) g/dL Plt Count 96 L (140-440) 10*3/uL MPV 13.9 H (9.5-12.2) fL Immature Gran # (0.00-0.04) 10*3/uL Neutrophils # (1.80-7.70) 10*3/uL Lymphocytes # (0.90-5.00) 10*3/uL Eosinophils # (0.04-0.35) 10*3/uL Immature Plt Fraction 16.0 H (1.1-6.1) % ABG pH 7.13 L* (7.35-7.45) ABG pCO2 88 H* (35-45) mmHg ABG pO2 77 L (83-108) mmHg ABG HCO3 29 H (21-25) mmol/L ABG Total CO2 32 H (19-24) mmol/L ABG O2 Saturation 92.9 L (94-97) % VBG pH (7.31-7.41) VBG pCO2 (37-51) mmHg VBG HCO3 (24-28) mmol/L Hemoglobin 7.5 L (13.0-17.5) gm/dL Chloride (98-107) mmol/L BUN (9-20) mg/dL Creatinine (0.66-1.25) mg/dL Glucose (74-99) mg/dL POC Glucose (mg/dL) (70-110) mg/dL Calcium (8.4-10.2) mg/dL Total Bilirubin (0.2-1.3) mg/dL Total Protein (6.3-8.2) g/dL Albumin (3.5-5.0) g/dL Crossmatch See Detail 09/17/24 09/17/24 09/17/24 Range/Units 08:37 12:08 12:44 WBC 20.03 H (4.50-10.00) 10*3/uL RBC 3.24 L (4.40-5.60) 10*6/uL Hgb 8.5 L D (13.0-17.0) g/dL Hct 29.1 L (39.6-50.0) % MCH 26.2 L (27.0-32.0) pg MCHC 29.2 L (32.0-37.0) g/dL Plt Count (140-440) 10*3/uL MPV 13.2 H (9.5-12.2) fL Immature Gran # 0.23 H (0.00-0.04) 10*3/uL Neutrophils # 17.91 H (1.80-7.70) 10*3/uL Lymphocytes # 0.86 L (0.90-5.00) 10*3/uL Eosinophils # 0.03 L (0.04-0.35) 10*3/uL Immature Plt Fraction (1.1-6.1) % ABG pH 7.17 L* (7.35-7.45) ABG pCO2 79 H* (35-45) mmHg ABG pO2 77 L (83-108) mmHg ABG HCO3 29 H (21-25) mmol/L ABG Total CO2 31 H (19-24) mmol/L ABG O2 Saturation 93.9 L (94-97) % VBG pH (7.31-7.41) VBG pCO2 (37-51) mmHg VBG HCO3 (24-28) mmol/L Hemoglobin 7.8 L (13.0-17.5) gm/dL Chloride (98-107) mmol/L BUN (9-20) mg/dL Creatinine (0.66-1.25) mg/dL Glucose (74-99) mg/dL POC Glucose (mg/dL) 196 H (70-110) mg/dL Calcium (8.4-10.2) mg/dL Total Bilirubin (0.2-1.3) mg/dL Total Protein (6.3-8.2) g/dL Albumin (3.5-5.0) g/dL Crossmatch Microbiology - Last 24 Hours (Table) 09/15/24 10:20 Blood Culture Gram Stain - Preliminary Blood Blood Culture - Preliminary Molecular ID Assessment and Plan (1) Pneumonia Current Visit: Yes Status: Acute Code(s): J18.9 - PNEUMONIA, UNSPECIFIED ORGANISM SNOMED Code(s): 786635149 (2) Sepsis Current Visit: Yes Status: Acute Code(s): A41.9 - SEPSIS, UNSPECIFIED ORGANISM SNOMED Code(s): 50225523 (3) Candidemia Current Visit: Yes Status: Acute Code(s): B37.7 - CANDIDAL SEPSIS SNOMED Code(s): 911210791 Plan: 1patient is a hospital with sepsis in this patient who did have fever tachycardia elevated lactic acid upon meeting criteria for SIRS/sepsis source likely pneumonia in this patient who did have history of recurrent multidrug- resistant Pseudomonas pneumonia and will need to cover for that pathogen while waiting for the culture to be finalized 2-blood cultures has been negative and sputum culture growing Pseudomonas that is sensitive to Avycaz and tobramycin, Zerbaxa sensitivity not reported 3-patient is status post bronchoscopy lavage results currently growing Pseudomonas that is resistant to Avycaz and corynebacterium, sensitivity on corynebacterium is pending 4-patient now with evidence of candidemia source is likely left chest wall PICC line need to be discontinued in order to help heal his candidemia as the patient did not want very well to the Diflucan started last night, we will start the patient on Eraxis discussed with the nursing staff who will be contacting the intensive was for possible placement of a central line and removal of the PICC line which should be sent for culture prognosis remains to be guarded Multiple family member at the bedside question answered Dictation was produced using [employer] dictation software. please excuse any grammatical, word or spelling errors. Time with Patient: Greater than 30
[2024-09-17] MEDS: CISATRACURIUM 2 MG/ML 5 ML VIAL IV ONE (17:06)
--- NOTE | 2024-09-17 17:33 | XR ---
EXAMINATION TYPE: XR chest 1V confirm line plcal DATE OF EXAM: 09/17/2024 5:27 PM COMPARISON: 09/17/2024 CLINICAL INDICATION: Male, 49 years old with history of line placement, Chest pain TECHNIQUE: Single frontal view of the chest is obtained. FINDINGS: Tracheostomy tube is in place. Right-sided subclavian central venous line with its distal tip overlyi ng the SVC. Left-sided central venous line with tip overlying the SVC. No evidence for pneumothorax. Worsening patchy infiltrates throughout both lung craft. The cardiac silhouette size is within normal limits. The osseous structures are intact. IMPRESSION: 1. Worsening patchy infiltrates throughout both lung craft. [facility], , 09/17/2024 5:30 PM
[2024-09-17] MEDS ORDERED: ZINC OXIDE PASTE (Z-GUARD) 1 APPLIC TOPICAL PRN (21:00)
[2024-09-17] MEDS: NYSTATIN 100,000 UNIT/GM POWD 15 GM TOPICAL SCH (21:29)
--- NOTE | 2024-09-17 23:14 | P.PN ---
Progress Note - Text Progress Note Date: 09/17/24 Chief Complaint: Short of breath 49-year-old patient, follows with Dr. Murcia History of paraplegia, home vent at night, tracheostomy multiple admissions to the ICU for recurrent pneumonia. Patient's previous bronchial cultures been positive for Pseudomonas. He was discharged recently on IV cefepime. Also has a history of Crohn's disease with previous colectomy diverting ileostomy. History of DVT for which patient is on subcu Lovenox. Also had drug-resistant MRSA Pseudomonas. Patient currently does not have areas significant trach secretions. He has continues TPN. Has a right BKA. He does have slight movement in the right hand. Able to follow commands by nodding his head. Answering questions. He is scared by his elder son open. I was also the DPOA. August 30: Overnight patient started having more secretions through the tracheostomy. Vancomycin was added. Also blood pressure running low patient was put on Levophed drip. Otherwise sinus rhythm. Patient remains on the ventilator. Will also send off stool for C. difficile. Also patient IV cefepime. Getting TPN. August 31: ICU. Patient had positive fluid balance. Was given IV Lasix earlier. Remains on Levophed. Spiking fevers. Getting TPN. Stool negative for C. difficile. Patient is growing MDRO Pseudomonas aeruginosa. ID is ordered IV Zerbaxa. Which is currently not available. Patient's friend is visiting him in the ICU. Light trach secretion September 01: ICU. On the ventilator. FiO2 45%. PEEP of 5. Continues to have light trach secretions. Sputum cultures again growing Pseudomonas. Zerbaxa was obtained and resumed. Blood pressure running low. On Levophed. Patient's younger son at the bedside. Colostomy working fine. Has been spiking fevers. Cooling blanket. Ice packs. September 02: ICU. Ventilator FiO2 45%. PEEP of 5. Continues to have some trach secretions. IV Zerbaxa IV tobramycin. TPN lipids to continue. Also Levophed. Patient started cooling blankets since yesterday for temperatures. Along with the nurse speech therapy records were reviewed from last few admissions. Patient with multiple MBS and bedside swallow eval. No trouble with swallowing. Patient put on a chopped diet. Thin liquids. Patient did spike a fever of 101.7 earlier today. Low ionized calcium. IV gluconate given. September 03: ICU. On ventilator FiO2 45%. PEEP of 5. Mild trach secretions. Getting IV TPN lipids. IV tobramycin. Zerbaxa was substituted to Avycaz. By ID. No fever per se since yesterday. For blood pressure patient is also on Levophed and vasopressin. September 04: ICU. On ventilator FiO2 45%. PEEP of 5. Clear trach secretions. Getting IV TPN lipids. IV tobramycin. And IV Avycaz. Remains afebrile.. On Levophed and vasopressin. Awake. 09/06/2024 Patient is seen and evaluated in ICU; remains on mechanical ventilator, actually his home ventilator, with settings of volume assist-control, rate 20, tidal volume 450, FiO2 45%, PEEP of 5. - patient has been refusing blood; no ABGs to. He is getting lactated Ringer's at 50 cc an hour, TPN at 65 cc an hour. - patient remains on the same antibiotics. - Labs reviewed which reveal white count 5.21, hemoglobin 7.9, hematocrit 27.5, and platelet count 64,000. Sodium 141, potassium 3.5, chlorides 102, CO2 32, BUN 25, and creatinine 0.35. Glucose is 152. Calcium is 8. Albumin is 2.1. -Chest x-ray is largely unchanged. Critical care managing mechanical ventilation; recommending to add scopolamine patch for increased secretion -Patient remains on Avycaz and tobramycin - Continue with current TPN 09/07 Patient remains in the ICU lethargic. He is s/p tracheostomy Overnight he was more hypoxic they have to increase PEEP to 8. Also has a lot of secretions when needed for secretions suctioning to try to become apneic per Staff. Patient currently receiving Avycaz and tobramycin. on TPN also 09/08 Patient remains in the ICU awake and alert status post tracheostomy. He has contractures of both upper and lower extremities He is complaining from pain in his lungs. He is status post flexible bronchoscopy and bronchoalveolar lavage yesterday. He has previous sputum culture positive for Pseudomonas currently covered with ceftazidime and tobramycin. He is also on Lovenox 90 mg 09/09 Patient still in the ICU on mechanical ventilation via tracheostomy. PEEP is 8.0 as is yesterday Also he spiked little fever to 100.7. IV vancomycin is added to tobramycin and ceftazidime He is getting also bronchoscopy follow-up culture results 09/10 Patient feels clinically the same, he still getting breathing via mechanical ventilation through his tracheostomy with PEEP of 8. Patient feels he is required suctioning through his tracheostomy tube. He denies chest pain or pain anywhere else he can communicate by head signs and gestures. Hemodynamically stable and afebrile hemoglobin 7.4 platelet count 73 Glucose is controlled potassium 3.3 He remains on broad-spectrum antibiotic Rocephin at this time tobramycin and IV vancomycin added yesterday because he had low-grade fever. He is getting TPN. IV fluid Ringer lactate was stopped and patient was started on IV Lasix 20 mg 3 times a day continue with therapeutic dose of Lovenox as well 09/11 Patient remains in the ICU Remains on mechanical ventilation via tracheostomy He status post bronchoalveolar lavage 2 days ago, culture is growing Pseudomonas aeruginosa and corynebacterium Patient remains on broad-spectrum antibiotics with IV vancomycin, tobramycin, ceftazidime On IV Lasix also is on therapeutic dose of Lovenox 90 mg twice daily No IV fluids 09/12 Patient remains in the ICU Clinically close to what he was over the last 2 days still getting oxygen via his tracheostomy He remains on broad-spectrum antibiotic with Ceftin this time and IV vancomycin. Also he is on IV Lasix 20 mg and therapeutic dose of Lovenox. 09/13 Patient remains in the ICU on mechanical ventilation via tracheostomy Patient looks better today, he breathing better Less secretion Fentanyl patch increased 09/14. Patient seen and examined. Patient continues to be on mechanical ventilation via trach mask. Currently on TPN. Currently on IV Zerbaxa and vancomycin 09/15. Patient seen and examined.Vital signs done showed the patient overnight, heart rate 106, blood pressure 107/40, currently on ventilation. Labs reviewed showed WBC 7.27, hemoglobin 7.5, sodium 148 on potassium 4.3, BUN 23, creatinine 0.47 09/16. Patient seen and examined labs reviewed showing WBC 5.45, hemoglobin 9.6, platelet count 131, sodium 146, potassium 4.1, BUN 20, creatinine 0.47. Continue small amount of Levophed. Currently on Zerbaxa and vancomycin. Currently on TPN September 17: ICU. Patient has taken a turn for the worse today. Significant thick white secretions from the trach. Sinus rhythm. Receiving TPN. Patient is on Levophed and vasopressor. Rather high dose. FiO2 100 [address] PEEP of 10. Dr. Ho earlier spoke to the patient/family. Remains full code Active Medications Albuterol/Ipratropium (Ipratropium-Albuterol 3 Ml Neb) 3 ml INHALATION RT-Q4H PRN PRN Reason: shortness of breath Last Admin: 09/17/24 15:03 Dose: 3 ml Artificial Tears (Artificial Tears-Hypromellose Drops 15 Ml Btl) 1 drops BOTH EYES QID PRN PRN Reason: Dry Eye(s) Last Admin: 09/04/24 12:52 Dose: 1 drops Fentanyl (Fentanyl 100mcg/Hr Patch) 1 patch TRANSDERM Q72H [facility]; Protocol Last Admin: 09/16/24 10:46 Dose: 1 patch Furosemide (Furosemide 10 Mg/Ml 4 Ml Vial) 40 mg IV Q12HR ANNIE Last Admin: 09/17/24 21:30 Dose: 40 mg Hydrocortisone Sodium Succinate (Hydrocortisone Succinate 100 Mg/2 Ml Vial) 100 mg IV Q8HR ANNIE Last Admin: 09/17/24 15:59 Dose: 100 mg Hydromorphone HCl (Hydromorphone 1 Mg/Ml 1 Ml Syringe) 1 mg IVP Q3H PRN PRN Reason: Pain Last Admin: 09/17/24 17:05 Dose: 1 mg Fat Emulsion Intravenous 250 (ml/ IV Solution) 250 mls @ 21 mls/hr IV Q72H [facility] Last Admin: 09/17/24 10:15 Dose: 21 mls/hr Norepinephrine Bitartrate 8 mg (/ Sodium Chloride) 258 mls @ 5.003 mls/hr IV .Q24H ANNIE; Protocol Last Admin: 09/17/24 22:55 Dose: 0.5 mcg/kg/min, 83.382 mls/hr Ceftolozane/Tazobactam 3 gm/ (Sodium Chloride) 100 mls @ 100 mls/hr IV Q8HR [facility]; Protocol Last Admin: 09/17/24 15:59 Dose: 100 mls/hr Parenteral Vitamin Supplement 10 ml/ Zinc/Copper/Manganese/Selenium 1 ml/ Magnesium Sulfate 2 gm/ Sodium Phosphate 30 mmol/ Potassium Chloride 80 meq/ Sodium Acetate 60 meq/Calcium Gluconate 0.5 gm/Amino Acids/Dextrose 1,100 mls @ 75 mls/hr IV .BY DURATION [facility] Last Admin: 09/16/24 18:05 Dose: 75 mls/hr Magnesium Sulfate 2 gm/ Sodium Phosphate 30 mmol/ Potassium Chloride 80 meq/ Sodium Acetate 60 meq/ Calcium Gluconate 0.5 gm/ Amino Acids/Dextrose 1,089 mls @ 75 mls/hr IV .BY DURATION [facility] Last Admin: 09/17/24 10:15 Dose: 75 mls/hr Vancomycin HCl 1,500 mg/ (Sodium Chloride) 500 mls @ 167 mls/hr IVPB Q16H ANNIE Last Admin: 09/17/24 12:12 Dose: 167 mls/hr Vasopressin 20 unit/ Sodium (Chloride) 51 mls @ 4.59 mls/hr IV .Q11H7M [facility]; Protocol Last Admin: 09/17/24 10:54 Dose: 0.04 units/min, 6.12 mls/hr Anidulafungin 100 mg/ Sodium (Chloride) 130 mls @ 84 mls/hr IVPB DAILY [facility]; Protocol Lorazepam (Lorazepam 1 Mg/0.5 Ml Vial) 0.5 mg IV Q6HR PRN PRN Reason: Anxiety Last Admin: 09/15/24 18:26 Dose: 0.5 mg Miscellaneous Information (Pneumonia Protocol Utilized 1 Each Misc) 1 each PO ONCE PRN PRN Reason: Per Protocol Miscellaneous Information (Potassium Replacement Protocol 1 Each Misc) 1 each MISCELLANE DAILY PRN; Protocol PRN Reason: Per Protocol Miscellaneous Information (Magnesium Replacement Protocol 1 Each Misc) 1 each M ISCELLANE DAILY PRN; Protocol PRN Reason: Per Protocol Miscellaneous Information (Vancomycin Trough Due 1 Each Misc) 1 each MISCELLANE ONCE ONE Stop: 09/20/24 04:01 Naloxone HCl (Naloxone 0.4 Mg/Ml 1 Ml Vial) 0.2 mg IV Q2M PRN PRN Reason: Opioid Reversal Nystatin (Nystatin 100,000 Unit/Gm Powd 15 Gm) 1 applic TOPICAL BID [facility]; Protocol Last Admin: 09/17/24 21:29 Dose: 1 applic Ondansetron HCl (Ondansetron 4 Mg/2 Ml Vial) 4 mg IVP Q6HR PRN PRN Reason: Nausea And Vomiting Last Admin: 09/01/24 19:41 Dose: 4 mg Pantoprazole Sodium (Pantoprazole 40 Mg/10 Ml Vial) 40 mg IV DAILY [facility] Last Admin: 09/17/24 08:30 Dose: 40 mg Petrolatum (Zinc Oxide Paste (Z-Guard) 1 Applic) 1 applic TOPICAL BID PRN; Protocol PRN Reason: Wound Healing Psyllium Hydrophilic Mucilloid (Psyllium Husk 100% 6 Gm Packet) 6 gm PO BID [facility] Last Admin: 09/17/24 22:29 Dose: Not Given Social history: ] Patient started smoking at the age of [age] 1 pack a day stopped in 2016. Nonambulatory. Is cared by his son over. Who is also the DPOA Physical examination: VITAL SIGNS: Tmax 100.6, 87, 36, 128 x 48, 96% on FiO2 100% GENERAL: BMI 27.3, laying in bed, awake EYES: Pupils equal. Conjunctiva loan l. HEENT: External appearance of nose and ears normal, oral cavity grossly normal. NECK: JVD unable to assess; masses not palpable. Tracheostomy HEART: First and second heart sounds are normal; no edema. LUNGS: Respiratory rate increased, decreased breath sounds, some crackles ABDOMEN: Soft, nontender, liver spleen not palpable, no masses palpable. Double barrel ostomy. PSYCH: Able to answer questions by attempting to speak to normal. Not able phonate MUSCULOSKELETAL: Right BKA. Left foot drop. Left hand contracture. Right hand also with contracture but able to have some movements NEUROLOGICAL: Cranial nerves grossly intact; no facial asymmetry, slight movement in the right arm. Awake L INVESTIGATIONS, reviewed in the clinical context: September 17: White count 20 hemoglobin 8.5 platelets 199 potassium 4.2 BUN 25 creatinine 0.4. ABG: pH 7.17 pCO2 79 PO277. September 02: White count 3.6 hemoglobin 9.7 platelets 130 potassium 3.9 BUN 23 creatinine 0.36 ionized calcium 4.3 TSH 2.7 Sputum culture: Pseudomonas aeruginosa: Sensitive to Zosyn, tobramycin, ceftazidime Sputum culture: Pseudomonas aeruginosa August 30: White count 3.5 hemoglobin 10.0 platelets 133 potassium 3.5 creatinine 0.36 August 29, 2024: White count 6.2 hemoglobin 12.3 platelets 216 sodium 128 potassium 3.1 BUN 50 creatinine 0.46 lactic acid 2.1 calcium 10.8 phosphorus 3.0 troponin I 0.016 UA: Negative for nitrite Influenza type A, type B, RSV, SARS-CoV-2: Not detected EKG tracing personally reviewed by me-normal sinus rhythm Chest x-ray film personally reviewed by me-right basilar infiltrate Previous labs: Sputum culture July 20, 2024: Pseudomonas aeruginosa Assessment plan: - basal pneumonia. Previous admission sputum was positive for Pseudomonas aeruginosa-:: Slow to respond Has received different antibiotics. Currently: Aniedulefungin IV, IV ceftolozane tazobactam, IV vancomycin Being followed by pulmonary, and ID - Septic shock: Worsening Patient on Levophed. Vasopressin - Chronic hypoxic and hypercapnic respiratory failure, vent dependent at night at home: Currently worsening 100% FiO2 - Tracheostomy with trach collar - Normocytic anemia of chronic disease and hospital-acquired anemia from blood draws Follow H&H - Thrombocytopenia likely from sepsis Follow - Right below-knee amputation - Chronic quadriparesis. Including left foot drop. Left arm contracture. Some right hand contracture. Some movement in the right arm - Crohn's disease with double barrel ostomy bag in place since 09/2021 - TPN - Full code - DPOA, haylee PENA Continue current antibiotics pressors. Prognosis guarded. Past Medical History Past Medical History: CVA/TIA, Deep Vein Thrombosis (DVT), Pneumonia Additional Past Medical History / Comment(s): Hx CVA in 2012, DVT R arm, Crohns. colostomy Bag placed in 09/2021. History of Any Multi-Drug Resistant Organisms: MRSA, Other MDRO Date of last positivie culture/infection: 07/20/24-Other MDRO; 12/14/23-MRSA MDRO Source:: Other MDRO - sputum, BAL; MRSA- nasal Past Surgical History: Bowel Resection, Cholecystectomy, Orthopedic Surgery Additional Past Surgical History / Comment(s): R BKA, trach with chronic home vent Past Anesthesia/Blood Transfusion Reactions: No Reported Reaction Additional Past Anesthesia/Blood Transfusion Reaction / Comment(s): recalled from previous admission Smoking Status: Never smoker
[2024-09-18 05:08] LABS: ABG HCO3 27 mmol/L (21-25); ABG PCO2 68 mmHg (35-45); ABG PH 7.20 (7.35-7.45); ABG PO2 77 mmHg (83-108); ABG TCO2 29 mmol/L (19-24)
[2024-09-18 05:23] LABS: Basophils # (A) 0.01 10*3/uL (0.00-0.10); Basophils % (A) 0.1 %; Eosinophils # (A) 0.00 10*3/uL (0.04-0.35); Eosinophils % (A) 0.0 %; HCT 27.0 % (39.6-50.0); HGB 7.6 g/dL (13.0-17.0); Lymphocytes # (A) 1.39 10*3/uL (0.90-5.00); Lymphocytes % (A) 9.3 %; MCH 25.3 pg (27.0-32.0); MCHC 28.1 g/dL (32.0-37.0); MCV 90.0 fL (80.0-97.0); Monocytes # (A) 0.67 10*3/uL (0.20-1.00); Monocytes % (A) 4.5 %; Neutrophils # (A) 12.76 10*3/uL (1.80-7.70); Neutrophils % (A) 85.3 %; Platelet Count 195 10*3/uL (140-440); RBC 3.00 10*6/uL (4.40-5.60); RDW 20.3 % (11.5-14.5); WBC 14.95 10*3/uL (4.50-10.00)
[2024-09-18 05:37] LABS: African American GFR (CKD) >90 (>60 ml/min/1.73 sqM); Anion Gap 9 mmol/L; Blood Urea Nitrogen 45 mg/dL (9-20); Calcium 7.8 mg/dL (8.4-10.2); Carbon Dioxide 25 mmol/L (22-30); Chloride 109 mmol/L (98-107); Glucose 278 mg/dL (74-99); Non-African American GFR(CKD) >90 (>60 ml/min/1.73 sqM); Sodium 143 mmol/L (137-145)
[2024-09-18] MEDS: FUROSEMIDE 10 MG/ML 10 ML VIAL IV STA (05:39)
[2024-09-18 06:15] LABS: Allen Test Performed? No
[2024-09-18 06:20] LABS: Potassium 6.1 mmol/L (3.5-5.1)
--- NOTE | 2024-09-18 07:46 | XR ---
EXAMINATION TYPE: XR chest 1V portable DATE OF EXAM: 09/18/2024 5:08 AM COMPARISON: Chest radiographs from 09/17/2024 CLINICAL INDICATION: Male, 49 years old with history of Ventilated; [facility] TECHNIQUE: XR chest 1V portable Frontal view of the chest. FINDINGS: Lungs/Pleura: No evidence of focal consolidation or pneumothorax. Blunting of the costophrenic angles is present. Pulmonary vascularity: Unremarkable. Heart/mediastinum: Cardiomediastinal silhouette is unremarkable. Musculoskeletal: No acute osseous pathology. Other findings: None Lines/Tubes: Tracheostomy cannula tip projecting over the trachea. Right-sided PICC line with distal tip at the cavoatrial junction. IMPRESSION: 1. Multifocal airspace opacities concerning for pneumonia. 2. Small bilateral pleural effusions. [facility], , 09/18/2024 7:44 AM
[2024-09-18] MEDS: SODIUM BICARB 8.4% 50 ML SYR (1 MEQ/ML) IV STA (07:47)
[2024-09-18] MEDS: NOREPINEPHRINE 32 MG in SODIUM CHLORIDE 0.9% 218 ML IV SCH (08:20)
[2024-09-18] MEDS: ANIDULAFUNGIN 100 MG in SODIUM CHLORIDE 0.9% 100 ML IVPB SCH (09:30)
[2024-09-18] MEDS: FUROSEMIDE 100 MG in SODIUM CHLORIDE 0.9% 90 ML IV SCH (09:33)
--- NOTE | 2024-09-18 12:24 | P.PN ---
Subjective Progress Note Date: 09/18/24 Principal diagnosis: Acute on chronic hypoxic respiratory failure secondary to bilateral pneumonia secondary to multidrug resistant Pseudomonas aeruginosa., And secondary to fungemia This is a 49-year-old white male familiar to my service, history of paraplegia, home vent dependent, history of tracheostomy, patient had multiple admissions to the ICU for recurrent episodes of pneumonia and respiratory failure requiring ventilatory support. On his last admission patient was eventually discharged home on a home ventilator, and this was back on 08/04/2024. Patient was disch arged home with a PICC line, patient was in the ER yesterday on 08/28 for abnormal labs mostly low potassium and low sodium discharged home however he came back today complaining of shortness of breath, has been ventilator dependent all along. Chest x-ray showed basically bibasilar opacities/atelect asis, doubt pneumonia, the findings in the left lower lobe are chronic. Patient did have previous history of pneumonia involving the left lower lobe and he had multiple bronchoscopies in the past. Bronchial cultures and sputum cultures have been positive in the past for mostly Pseudomonas aeruginosa. Patient was seen in the ER today, and he is already on cefepime for empiric coverage for potential left lower lobe pneumonia, patient had abnormal electrolytes with relatively low sodium low potassium, no leukocytosis, normal renal profile, blood pressure was soft, and he was given fluid boluses. Lactic acid was 2.1, D-dimer is normal, patient was admitted, and this consult was initiated. 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 09/10/2024, patient is awake and alert and communicating. Continues to have on and off episodes of shortness of breath while being on a mechanical ventilator. Oxygenation is borderline and the patient's pulse ox remains low. Unable to obtain any blood gases as the patient has declined arterial blood draws. He is on assist-control mode rate of 20, tidal volume of 450, FiO2 of 70% with a PEEP of 10. Remains on TPN at rate of 35 cc an hour and lactated Ringer at rate of 50 cc an hour. Fluid balance is +2.6 L over the past 24 hours.the white cell count is 6.3, hemoglobin is at 7.4, platelet count is a 73 and the patient remains on therapeutic dose of Lovenox. The patient's sodium levels at 143, K is at 3.3, bicarb is at 40 with a BUN of 21 and a creatinine of 0.8. Blood sugar is 140. The most recent lavage from the right lower lobe was positive for Pseudomonas aeruginosa and corynebacterium. The patient remains on a combination of ceftazidime antibacterial combination, tobramycin and IV vancomycin. Output from ileostomy is in order of 800 cc over the past 8 hours. Remains on IV Lasix. Chest x-ray is unchanged and it shows bilateral pulmonary infiltrates, diffuse increased interstitial lung markings, lines and catheters are in place, tracheostomy tube is in place. 09/11/2024, the patient is stable, awake and alert and communicating. Remains on TPN for nutritional support with rate of 75 cc an hour. Remains on the same mechanical ventilator settings and the patient remains on assist-control mode at rate of 20, tidal volume of 450, FiO2 of 60% with a PEEP of 8. Fluid balance is -50 cc over the past 24 hours and the patient remains on IV Lasix 20 mg every 8 hours. The biotic coverage remains unchanged and the patient remains on a combination of ceftazidime IV Bactrim, tobramycin and vancomycin. The white cell count is at 4.7 with a hemoglobin of 7.1 and a platelet count of 89. BUN is 20 with a creatinine of 0.25. Sodium levels at 142. Serum iron levels at 16. Vancomycin trough is at 17. Follow-up chest x-ray from today shows stable bilateral pulmonary filtrates and pleural effusions bilaterally. Tracheostomy tube remains in good location. The patient continues to have high output through the ileostomy. Currently afebrile. No cardiac arrhythmias have been noted. 09/12/2024, patient is resting comfortably in bed. Remains on a mechanical ventilator. Unable to wean. Chest x-ray still showing bilateral pulmonary filtrates consistent with pneumonia. The patient is on assist-control mode at rate of 20, tidal volume of 450, FiO2 of 50% and a PEEP of 8. Remains negative fluid balance as the patient is being diuresed with IV Lasix. Fluid balance is -1 L over the past 24 hours. Remains on Lasix 20 mg IV push every 8 hours. Hemoglobin from this morning was 5.8. Repeat hemoglobin came back at 7.4. Platelet counts are stable. No evidence of any GI bleeding. Remains on Lovenox therapeutic dose. Remains on TPN at rate of 75 cc an hour. White cell count is at 5, platelet count is at 93, BUN is 25 with a creatinine 0.4. Sodium levels at 144 and a potassium level is at 3.6. Ileostomy still functioning. Remains on broad-spectrum antibiotics. Remains on ceftolozane/tazobactam. Remains on vancomycin. Remains on stress dose hydrocortisone. 09/13/2024, the patient is being seen for a follow-up. No change in his condition over the past 24 hours. Remains on a mechanical ventilator. Awake and alert and communicating. Started on fentanyl patch and his pain is under better control and the patient is using fentanyl patch 75 mcg every 72 hours. Remains assist-control mechanical ventilation at rate of 20, tidal volume of 450, FiO2 50% with a PEEP of 8. Chest x-ray from today shows stable bilateral pulmonary infiltrates, no significant change compared to yesterday and the tracheostomy tube remains in place. The patient continues to have multifocal airspace disease. Fluid balance is +30 cc over the past 24 hours. TPN is running at a rate of 75 cc an hour. Afebrile. Hemoglobin in this morning was at 5.8. Recheck was 6.1. The platelet count is 817. Sodium is at 148, potassium 3.2, BUN 26 with a creatinine of 0.44. Serum bicarb is at 38. The patient has a triglyceride level of 152. Remains on ceftolozane tazobactam and vancomycin. Seen today on 09/14/24, patient remains intubated, mechanically ventilated, arousable, follows simple instructions, he is on assist-control rate of 20 tidal volume 450 FiO2 50% and PEEP of 6 patient is spiking temps he had a temp as high as 102 remains on Zerbaxa and vancomycin his hemoglobin is low today 6.9 will give a unit of packed RBCs still requiring norepinephrine at 0.12 mcg/kg/min he is also on TPN at 75 cc/h. Not much of a change noted in his overall clinical picture, patient remains quite ill and septic. Labs today show WBC of 6.4 hemoglobin 6.9 electrolytes are normal sodium is 147 renal profile is normal, chest x-ray continues to show multifocal airspace opacities and small bilateral pleural effusions. Seen today on 09/15/2024, patient was seen in consultation, remains in the ICU intubated and mechanically ventilated, assist-control rate of 20 tidal volume 450 FiO2 60% PEEP of 8 no ABG done today. However his chest x-ray continues to show significant bibasilar infiltrates right more so than left. Patient is still requiring norepinephrine at 0.08 mcg/kg/min. Sputum cultures were noted positive for Pseudomonas and corynebacterium patient remains on Zerbaxa and vancomycin. Looking back at the clinical history of this patient and his previous admissions and previous notes, I believe we have not making any progress or any significant improvement since admission. Today I had a chance to discuss CODE STATUS again with the patient and explained to him that his overall picture does not seem to be very promising, I also discussed with the patient the option of hospice, patient is undecided at this point, he will think about it. WBC count is 7.07 hemoglobin 7.5 patient did receive a unit of packed RBCs yesterday for hemoglobin of 6.9. Electrolytes are normal renal profile is normal, chest x-ray continues to show infiltrates mostly in the right lower lobe more so than the left lower lobe. Patient was seen today on 09/16/2024, patient is basically about the same. Hardly any improvement noted in the last few weeks since admission, patient remains intubated, mechanically ventilated, same ventilator settings, assist-control rate of 20 tidal volume 450 FiO2 60% and PEEP of 8 ABG was not done today, no easy access, attempted to place arterial lines in this patient, but could not pass a wire although the arteries including femoral artery and left brachial artery were easily cannulated. No further attempts made for arterial access. Patient remains on norepinephrine at 0.13 mcg/kg/min still on TPN at 75 cc/h still on Zerbaxa and vancomycin chest x-ray showed worsening today of bilateral infiltrates possibly some component of fluid overload and I recommended Lasix 20 mg IV push twice daily. Patient seems to be quite swollen and edematous. WBC count is 5.4 hemoglobin 7.6 electrolytes showed sodium of 146 potassium 4.1 BUN 20 creatinine 0.47 Patient was seen today on 09/17/2024, patient seems to be deteriorating steadily over the last 24 hours, he is developing profound hypotension requiring pressors in the form of Levophed at 0.4 mcg/kg/min he is also on vasopressin at 0.04 units/min he is on TPN at 75 cc/h hemoglobin is noted to be low at 6.9, patient has positive yeast in the blood/fungemia he is on fluconazole, this is being addressed by infectious disease on the case. Earlier ABG showed a pO2 of 77 pCO2 88 pH of 7.13, Vent settings were adjusted with increasing the rate to 36. He is now on tidal volume of 350 FiO2 100% PEEP is 10 and rate is 36. Another ABG is pending. But clearly patient is taking a downhill clinical course. Patient is quite septic, I will likely change his central line, and place a new central line in this patient today and remove the old central line/PICC line. Patient will receive a unit of packed RBCs for hemoglobin of 6.9. Considering the change in his overall clinical status, discussed his condition with son, would like to keep his dad as a full code, he is very well aware of the poor prognostic picture and how ill his dad is. Would like to keep him a full code. WBC count today is 20.03 hemoglobin 8.5, basic metabolic profile is normal BUN is 25 creatinine 0.4 total protein is 6.9 albumin is 1.9. Patient was seen today on 09/18/24, remains in the ICU, intubated and mechanically ventilated. Patient is still requiring assist-control rate of maximal ventilatory support with rate of 36 tidal volume increased today up to 400 FiO2 decreased from 100% to 70% PEEP remains at 12. Earlier ABG before changes were made at the FiO2 had been on tidal volume showed a pO2 of 77 pCO2 68 pH of 7.20. Patient is still requiring norepinephrine and I have been titrating the norepinephrine earlier this morning he is down to 0.18 from 0.46 yesterday micrograms per kilo per minute vasopressin is still at 0.04 units/min patient is on propofol at 50 mcg/kg/min Lasix drip at 20 mg/h and TPN at 75 cc/h. I am also treating the patient with vancomycin, Zerbaxa, and Eraxis was added to replace fluconazole yesterday by infectious disease specially with his positive blood cultures for Bella. Urine output is improving with the Lasix drip, he did not improve much with 1 dose of Lasix 60 mg IV push. Remains on Solu-Cortef at 100 mg IV push every 8 hours patient is in positive fluid balance about 6 L hence I decided to go with Lasix drip today. Labs today showed slight improvement in his WBC count down to 14.9 hemoglobin is 7.6, electrolytes are abnormal with a potassium of 6.1 BUN is 45 creatinine 0.82 chest x-ray continues show bilateral interstitial edema/infiltrates, could be cardiogenic or noncardiogenic pulmonary edema I believe it is mostly cardiogenic/related to fluid overload as he received significant fluids yesterday for low blood pressure. And he was not making much urine in the last 24 hours. Hence Lasix drip was started today. Objective - Vital Signs Vital signs: Vital Signs Temp 98.6 F 09/18/24 08:00 Pulse 68 09/18/24 11:57 Resp 36 H 09/18/24 11:00 BP 114/42 09/17/24 10:15 Pulse Ox 96 09/18/24 11:00 FiO2 70 09/18/24 11:55 Intake & Output 09/17/24 09/18/24 09/18/24 18:59 06:59 18:59 Intake Total 4570.338 1851.478 914.199 Output Total 200 90 110 Balance 4370.338 1761.478 804.199 Weight 107.8 kg Intake: IV 2838 935 640 0.9 60 110 40 Anidulafungin 200 mg In 252 200 Sodium Chloride 0.9% 200 ml @ 84 mls/hr IVPB ONCE ONE Rx#:[id number] Ceftolozane/Tazobactam 3 200 100 gm In Sodium Chloride 0.9 % 100 ml @ 100 mls/hr IV Q8HR [facility] Rx#:[id number] Sodium Chloride 0.9% 1, 1000 000 ml @ 999 mls/hr IV . Q1H1M ONE Rx#:[id number] TPN 825 825 300 Vancomycin 1,500 mg In 501 Sodium Chloride 0.9% 500 ml 500 ml @ 167 mls/hr IVPB Q16H [facility] Rx#: [id number] Intake, IV Titration 1380.338 916.478 274.199 Amount Mvi, Adult No.4 with Vit 1100 K 10 ml Trace (Conc-1Ml/ Dose) 1 ml Magnesium Sulfate gm 2 gm Sodium Phosphate 30 mmol Potassium Chloride 80 meq Sodium Acetate 60 meq Calcium Gluconate 0.5 gm In Amino Acids 5 %/ Dextrose 20 % 1,000 ml @ 75 mls/hr IV .BY DURATION ANNIE Rx#:[id number] Norepinephrine 32 mg In 38.479 Sodium Chloride 0.9% 218 ml @ 0.03 MCG/KG/MIN 1. 516 mls/hr IV .Q24H [facility] Rx#:[id number] Norepinephrine 8 mg In 258.000 865.478 149.755 Sodium Chloride 0.9% 250 ml @ 0.03 MCG/KG/MIN 5. 003 mls/hr IV .Q24H [facility] Rx#:[id number] Vasopressin 20 unit In 22.338 51 61.71 Sodium Chloride 0.9% 50 ml @ 0.03 UNITS/MIN 4.59 mls/hr IV .Q11H7M [facility] Rx# :[id number] propofoL 1,000 mg In 24.255 Empty Bag 1 bag @ 50 MCG/ KG/MIN 32.34 mls/hr IV . Q3H6M [facility] Rx#:[id number] TPN/PPN 75 TPN 75 Blood Product 277 Rc Pheresis As-3 Unit 277 [id number] Output: Urine 200 90 110 Other: Voiding Method Indwelling Catheter Indwelling Catheter Indwelling Catheter ABP, PAP, CO, CI - Last Documented Arterial Blood Pressure 125/57 - Exam GENERAL EXAM: 49-year-old white male intubated mechanically ventilated patient has a chronic tracheostomy, patient is sedated on propofol. HEAD: Normocephalic. Tracheostomy is intact. EYES: Normal reaction of pupils, equal size. NOSE: Clear with pink turbinates. THROAT: Tracheostomy tube secured in place. NECK: No masses, no JVD. Patient has now a left subclavian central line/triple- lumen catheter which I placed yesterday. CHEST: No chest wall deformity. LUNGS: Coarse rhonchi noted bilaterally. Symmetrical chest expansion CVS: S1 and S2 normal with no audible murmur, regular rhythm. ABDOMEN: Enterocutaneous fistula over the abdominal wall. No hepatosplenomegaly, normal bowel sounds. SKIN: No rashes, patient is quite edematous CENTRAL NERVOUS SYSTEM: Patient is arousable but seems to be profoundly weak. In spite of being on propofol. EXTREMITIES: Bilateral edema, extensive muscle atrophy. Contractures. There is no peripheral edema. No clubbing, no cyanosis. Peripheral pulses are intact. Right below-knee amputation is noted. - Labs CBC & Chem 7: 09/18/24 05:08 09/18/24 05:08 Labs: Abnormal Lab Results - Last 24 Hours (Table) 09/17/24 09/17/24 09/18/24 Range/Units 12:08 12:44 05:04 WBC 20.03 H (4.50-10.00) 10*3/uL RBC 3.24 L (4.40-5.60) 10*6/uL Hgb 8.5 L D (13.0-17.0) g/dL Hct 29.1 L (39.6-50.0) % MCH 26.2 L (27.0-32.0) pg MCHC 29.2 L (32.0-37.0) g/dL MPV 13.2 H (9.5-12.2) fL Immature Gran # 0.23 H (0.00-0.04) 10*3/uL Neutrophils # 17.91 H (1.80-7.70) 10*3/uL Lymphocytes # 0.86 L (0.90-5.00) 10*3/uL Eosinophils # 0.03 L (0.04-0.35) 10*3/uL ABG pH 7.20 L (7.35-7.45) ABG pCO2 68 H (35-45) mmHg ABG pO2 77 L (83-108) mmHg ABG HCO3 27 H (21-25) mmol/L ABG Total CO2 29 H (19-24) mmol/L Hemoglobin 8.1 L (13.0-17.5) gm/dL Potassium (3.5-5.1) mmol/L Chloride (98-107) mmol/L BUN (9-20) mg/dL Glucose (74-99) mg/dL POC Glucose (mg/dL) 196 H (70-110) mg/dL Calcium (8.4-10.2) mg/dL Phosphorus (2.5-4.5) mg/dL 09/18/24 09/18/24 Range/Units 05:08 05:08 WBC 14.95 H (4.50-10.00) 10*3/uL RBC 3.00 L (4.40-5.60) 10*6/uL Hgb 7.6 L (13.0-17.0) g/dL Hct 27.0 L (39.6-50.0) % MCH 25.3 L (27.0-32.0) pg MCHC 28.1 L (32.0-37.0) g/dL MPV 12.9 H (9.5-12.2) fL Immature Gran # 0.12 H (0.00-0.04) 10*3/uL Neutrophils # 12.76 H (1.80-7.70) 10*3/uL Lymphocytes # (0.90-5.00) 10*3/uL Eosinophils # 0.00 L (0.04-0.35) 10*3/uL ABG pH (7.35-7.45) ABG pCO2 (35-45) mmHg ABG pO2 (83-108) mmHg ABG HCO3 (21-25) mmol/L ABG Total CO2 (19-24) mmol/L Hemoglobin (13.0-17.5) gm/dL Potassium 6.1 H* (3.5-5.1) mmol/L Chloride 109 H (98-107) mmol/L BUN 45 H (9-20) mg/dL Glucose 278 H (74-99) mg/dL POC Glucose (mg/dL) (70-110) mg/dL Calcium 7.8 L (8.4-10.2) mg/dL Phosphorus 7.3 H (2.5-4.5) mg/dL Microbiology - Last 24 Hours (Table) 09/15/24 10:20 Blood Culture Gram Stain - Final Blood Blood Culture - Final Bella parapsilosis group Molecular ID Assessment and Plan Assessment: Impression: Acute on chronic hypoxic respiratory failure still intubated and mechanically ventilated, multifactorial but mostly related to multidrug- resistant Pseudomonas aeruginosa pneumonia., And now he has candidemia/Bella parapsilosis group Septic shock, secondary to pneumonia patient is on Zerbaxa and vancomycin. Candidemia with positive yeast in blood cultures most likely source is his PICC line which I have removed yesterday and I placed a new right subclavian central line. To replace it for now he will eventually need another PICC line in the future. Chronic hypoxic and hypercapnic respiratory failure, patient is ventilator dependent, patient has been recently on home ventilator History of severe tracheal stenosis History of tracheostomy History of recurrent pneumonias involving left lower lobe Tracheobronchomalacia History of DVT History of CVA History of right below-knee amputation History of asystole/cardiac arrest 2021. 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 Patient is maintained mostly on TPN. Bipedal edema with fluid overload hence patient was placed on Lasix. Recommendation: Continue ventilatory support Continue hemodynamic support and titrate norepinephrine and vasopressin Continue Eraxis for his candidemia/fungal sepsis Continue antibiotics for his resistance to Pseudomonas pneumonia Continue TPN/nutritional support Continue Lasix drip for now as her chest x-ray is concerning for interstitial edema, could be cardiogenic or noncardiogenic I believe this is mostly cardiogenic in nature as the patient received significant IV fluids over the last 24 hours with marginal urine output could also be a combination of cardiogenic pulmonary edema and ARDS. Continue GI and DVT prophylaxis/Protonix and Lovenox Continue bronchodilators Cut down on the stress doses of hydrocortisone 50 mg IV push every 8 hours Updated his family at bedside and his condition including his mother and his son Patient remains critically ill, prognosis is guarded Critical care time is 40 minutes We will continue to follow Time with Patient: Greater than 30
[2024-09-18] MEDS: HYDROCORTISONE SUCCINATE 100 MG/2 ML VIAL IV SCH (15:32)
--- NOTE | 2024-09-18 15:58 | P.PN ---
Subjective Progress Note Date: 09/18/24 Principal diagnosis: Reason for follow-up is sepsis and pneumonia/candidemia Patient is a 49-year-old male with a past medical history significant for CVA TIA DVT pneumonia history of complicated Crohn's disease in this patient who did have multiple abdominal surgeries patient also have a tracheostomy has been brought to the hospital with Generalized weakness did have a fever concerning for pneumonia on today's evaluation that is 09/18/2024, the patient did have resolution of his fever and the patient is afebrile patient remains to be debated through the trach on a 70% FiO2 requiring less pressor support as reported by the nursing staff. The patient white count is down to 14.95 creatinine 0.82 Objective - Vital Signs Vital signs: Vital Signs Temp 97.7 F 09/18/24 12:00 Pulse 84 09/18/24 14:30 Resp 35 H 09/18/24 14:30 BP 114/42 09/17/24 10:15 Pulse Ox 94 L 09/18/24 14:30 FiO2 70 09/18/24 12:00 Intake & Output 09/17/24 09/18/24 09/18/24 18:59 06:59 18:59 Intake Total 4570.338 5541.889 5191.073 Output Total 200 90 175 Balance 4370.338 4672.009 2989.073 Weight 107.8 kg Intake: IV 2838 935 995 0.9 60 110 70 Anidulafungin 200 mg In 252 200 Sodium Chloride 0.9% 200 ml @ 84 mls/hr IVPB ONCE ONE Rx#:[id number] Ceftolozane/Tazobactam 3 200 100 gm In Sodium Chloride 0.9 % 100 ml @ 100 mls/hr IV Q8HR [facility] Rx#:[id number] Furosemide 100 mg In 100 Sodium Chloride 0.9% 90 ml @ 20 MG/HR 20 mls/hr IV .Q5H ANNIE Rx#:[id number] Sodium Chloride 0.9% 1, 1000 000 ml @ 999 mls/hr IV . Q1H1M ONE Rx#:[id number] TPN 825 825 525 Vancomycin 1,500 mg In 501 Sodium Chloride 0.9% 500 ml 500 ml @ 167 mls/hr IVPB Q16H [facility] Rx#: [id number] Intake, IV Titration 1380.338 916.478 412.073 Amount Furosemide 100 mg In 79 Sodium Chloride 0.9% 90 ml @ 20 MG/HR 20 mls/hr IV .Q5H ANNIE Rx#:[id number] Mvi, Adult No.4 with Vit 1100 K 10 ml Trace (Conc-1Ml/ Dose) 1 ml Magnesium Sulfate gm 2 gm Sodium Phosphate 30 mmol Potassium Chloride 80 meq Sodium Acetate 60 meq Calcium Gluconate 0.5 gm In Amino Acids 5 %/ Dextrose 20 % 1,000 ml @ 75 mls/hr IV .BY DURATION ANNIE Rx#:[id number] Norepinephrine 32 mg In 64.991 Sodium Chloride 0.9% 218 ml @ 0.03 MCG/KG/MIN 1. 516 mls/hr IV .Q24H ANNIE Rx#:[id number] Norepinephrine 8 mg In 258.000 865.478 149.755 Sodium Chloride 0.9% 250 ml @ 0.03 MCG/KG/MIN 5. 003 mls/hr IV .Q24H ANNIE Rx#:[id number] Vasopressin 20 unit In 22.338 51 64.643 Sodium Chloride 0.9% 50 ml @ 0.03 UNITS/MIN 4.59 mls/hr IV .Q11H7M ANNIE Rx# :[id number] propofoL 1,000 mg In 53.684 Empty Bag 1 bag @ 50 MCG/ KG/MIN 32.34 mls/hr IV . Q3H6M ANNIE Rx#:[id number] TPN/PPN 75 TPN 75 Blood Product 277 Rc Pheresis As-3 Unit 277 [id number] Output: Urine 200 90 175 Other: Voiding Method Indwelling Catheter Indwelling Catheter Indwelling Catheter ABP, PAP, CO, CI - Last Documented Arterial Blood Pressure 138/47 - Exam GENERAL DESCRIPTION: Middle-age male intubated on the vent RESPIRATORY SYSTEM: Unlabored breathing , decreased breath sounds at bases HEART: S1 S2 regular rate and rhythm , ABDOMEN: Soft , no tenderness EXTREMITIES: Swelling to the leg - Labs CBC & Chem 7: 09/18/24 05:08 09/18/24 05:08 Labs: Abnormal Lab Results - Last 24 Hours (Table) 09/18/24 09/18/24 09/18/24 Range/Units 05:04 05:08 05:08 WBC 14.95 H (4.50-10.00) 10*3/uL RBC 3.00 L (4.40-5.60) 10*6/uL Hgb 7.6 L (13.0-17.0) g/dL Hct 27.0 L (39.6-50.0) % MCH 25.3 L (27.0-32.0) pg MCHC 28.1 L (32.0-37.0) g/dL MPV 12.9 H (9.5-12.2) fL Immature Gran # 0.12 H (0.00-0.04) 10*3/uL Neutrophils # 12.76 H (1.80-7.70) 10*3/uL Eosinophils # 0.00 L (0.04-0.35) 10*3/uL ABG pH 7.20 L (7.35-7.45) ABG pCO2 68 H (35-45) mmHg ABG pO2 77 L (83-108) mmHg ABG HCO3 27 H (21-25) mmol/L ABG Total CO2 29 H (19-24) mmol/L Hemoglobin 8.1 L (13.0-17.5) gm/dL Potassium 6.1 H* (3.5-5.1) mmol/L Chloride 109 H (98-107) mmol/L BUN 45 H (9-20) mg/dL Glucose 278 H (74-99) mg/dL Calcium 7.8 L (8.4-10.2) mg/dL Phosphorus 7.3 H (2.5-4.5) mg/dL Microbiology - Last 24 Hours (Table) 09/15/24 10:20 Blood Culture Gram Stain - Final Blood Blood Culture - Final Bella parapsilosis group Molecular ID Assessment and Plan (1) Pneumonia Current Visit: Yes Status: Acute Code(s): J18.9 - PNEUMONIA, UNSPECIFIED ORG ANISM SNOMED Code(s): 825216008 (2) Sepsis Current Visit: Yes Status: Acute Code(s): A41.9 - SEPSIS, UNSPECIFIED ORGANISM SNOMED Code(s): 67747327 (3) Candidemia Current Visit: Yes Status: Acute Code(s): B37.7 - CANDIDAL SEPSIS SNOMED Code(s): 938949910 Plan: 1patient is a hospital with sepsis in this patient who did have fever tachycardia elevated lactic acid upon meeting criteria for SIRS/sepsis source likely pneumonia 2-patient is status post bronchoscopy lavage results currently growing Pseudomonas that is resistant to Avycaz and corynebacterium, sensitivity on corynebacterium is pending 3-patient now with evidence of candidemia source is likely left chest wall PICC line which has been discontinued has been sent for the culture central line placed by studio producer, patient is currently being treated Eraxis fever is resolved and white count is trending down Mother at the bedside multiple question answered Dictation was produced using shenzhou[employer] dictation software. please excuse any grammatical, word or spelling errors. Time with Patient: Less than 30
--- NOTE | 2024-09-18 17:06 | P.PN ---
Progress Note - Text Progress Note Date: 09/18/24 Chief Complaint: Short of breath 49-year-old patient, follows with Dr. Murcia History of paraplegia, home vent at night, tracheostomy multiple admissions to the ICU for recurrent pneumonia. Patient's previous bronchial cultures been positive for Pseudomonas. He was discharged recently on IV cefepime. Also has a history of Crohn's disease with previous colectomy diverting ileostomy. History of DVT for which patient is on subcu Lovenox. Also had drug-resistant MRSA Pseudomonas. Patient currently does not have areas significant trach secretions. He has continues TPN. Has a right BKA. He does have slight movement in the right hand. Able to follow commands by nodding his head. Answering questions. He is scared by his elder son open. I was also the DPOA. August 30: Overnight patient started having more secretions through the tracheostomy. Vancomycin was added. Also blood pressure running low patient was put on Levophed drip. Otherwise sinus rhythm. Patient remains on the ventilator. Will also send off stool for C. difficile. Also patient IV cefepime. Getting TPN. August 31: ICU. Patient had positive fluid balance. Was given IV Lasix earlier. Remains on Levophed. Spiking fevers. Getting TPN. Stool negative for C. difficile. Patient is growing MDRO Pseudomonas aeruginosa. ID is ordered IV Zerbaxa. Which is currently not available. Patient's friend is visiting him in the ICU. Light trach secretion September 01: ICU. On the ventilator. FiO2 45%. PEEP of 5. Continues to have light trach secretions. Sputum cultures again growing Pseudomonas. Zerbaxa was obtained and resumed. Blood pressure running low. On Levophed. Patient's younger son at the bedside. Colostomy working fine. Has been spiking fevers. Cooling blanket. Ice packs. September 02: ICU. Ventilator FiO2 45%. PEEP of 5. Continues to have some trach secretions. IV Zerbaxa IV tobramycin. TPN lipids to continue. Also Levophed. Patient started cooling blankets since yesterday for temperatures. Along with the nurse speech therapy records were reviewed from last few admissions. Patient with multiple MBS and bedside swallow eval. No trouble with swallowing. Patient put on a chopped diet. Thin liquids. Patient did spike a fever of 101.7 earlier today. Low ionized calcium. IV gluconate given. September 03: ICU. On ventilator FiO2 45%. PEEP of 5. Mild trach secretions. Getting IV TPN lipids. IV tobramycin. Zerbaxa was substituted to Avycaz. By ID. No fever per se since yesterday. For blood pressure patient is also on Levophed and vasopressin. September 04: ICU. On ventilator FiO2 45%. PEEP of 5. Clear trach secretions. Getting IV TPN lipids. IV tobramycin. And IV Avycaz. Remains afebrile.. On Levophed and vasopressin. Awake. 09/06/2024 Patient is seen and evaluated in ICU; remains on mechanical ventilator, actually his home ventilator, with settings of volume assist-control, rate 20, tidal volume 450, FiO2 45%, PEEP of 5. - patient has been refusing blood; no ABGs to. He is getting lactated Ringer's at 50 cc an hour, TPN at 65 cc an hour. - patient remains on the same antibiotics. - Labs reviewed which reveal white count 5.21, hemoglobin 7.9, hematocrit 27.5, and platelet count 64,000. Sodium 141, potassium 3.5, chlorides 102, CO2 32, BUN 25, and creatinine 0.35. Glucose is 152. Calcium is 8. Albumin is 2.1. -Chest x-ray is largely unchanged. Critical care managing mechanical ventilation; recommending to add scopolamine patch for increased secretion -Patient remains on Avycaz and tobramycin - Continue with current TPN 09/07 Patient remains in the ICU lethargic. He is s/p tracheostomy Overnight he was more hypoxic they have to increase PEEP to 8. Also has a lot of secretions when needed for secretions suctioning to try to become apneic per Staff. Patient currently receiving Avycaz and tobramycin. on TPN also 09/08 Patient remains in the ICU awake and alert status post tracheostomy. He has contractures of both upper and lower extremities He is complaining from pain in his lungs. He is status post flexible bronchoscopy and bronchoalveolar lavage yesterday. He has previous sputum culture positive for Pseudomonas currently covered with ceftazidime and tobramycin. He is also on Lovenox 90 mg 09/09 Patient still in the ICU on mechanical ventilation via tracheostomy. PEEP is 8.0 as is yesterday Also he spiked little fever to 100.7. IV vancomycin is added to tobramycin and ceftazidime He is getting also bronchoscopy follow-up culture results 09/10 Patient feels clinically the same, he still getting breathing via mechanical ventilation through his tracheostomy with PEEP of 8. Patient feels he is required suctioning through his tracheostomy tube. He denies chest pain or pain anywhere else he can communicate by head signs and gestures. Hemodynamically stable and afebrile hemoglobin 7.4 platelet count 73 Glucose is controlled potassium 3.3 He remains on broad-spectrum antibiotic Rocephin at this time tobramycin and IV vancomycin added yesterday because he had low-grade fever. He is getting TPN. IV fluid Ringer lactate was stopped and patient was started on IV Lasix 20 mg 3 times a day continue with therapeutic dose of Lovenox as well 09/11 Patient remains in the ICU Remains on mechanical ventilation via tracheostomy He status post bronchoalveolar lavage 2 days ago, culture is growing Pseudomonas aeruginosa and corynebacterium Patient remains on broad-spectrum antibiotics with IV vancomycin, tobramycin, ceftazidime On IV Lasix also is on therapeutic dose of Lovenox 90 mg twice daily No IV fluids 09/12 Patient remains in the ICU Clinically close to what he was over the last 2 days still getting oxygen via his tracheostomy He remains on broad-spectrum antibiotic with Ceftin this time and IV vancomycin. Also he is on IV Lasix 20 mg and therapeutic dose of Lovenox. 09/13 Patient remains in the ICU on mechanical ventilation via tracheostomy Patient looks better today, he breathing better Less secretion Fentanyl patch increased 09/14. Patient seen and examined. Patient continues to be on mechanical ventilation via trach mask. Currently on TPN. Currently on IV Zerbaxa and vancomycin 09/15. Patient seen and examined.Vital signs done showed the patient overnight, heart rate 106, blood pressure 107/40, currently on ventilation. Labs reviewed showed WBC 7.27, hemoglobin 7.5, sodium 148 on potassium 4.3, BUN 23, creatinine 0.47 09/16. Patient seen and examined labs reviewed showing WBC 5.45, hemoglobin 9.6, platelet count 131, sodium 146, potassium 4.1, BUN 20, creatinine 0.47. Continue small amount of Levophed. Currently on Zerbaxa and vancomycin. Currently on TPN September 17: ICU. Patient has taken a turn for the worse today. Significant thick white secretions from the trach. Sinus rhythm. Receiving TPN. Patient is on Levophed and vasopressor. Rather high dose. FiO2 100 [address] PEEP of 10. Dr. Ho earlier spoke to the patient/family. Remains full code September 18: ICU. Intubated FiO2 70 PEEP of 12. Sinus rhythm. Drips include IV propofol at 50 and Levophed at 0.13. Patient is off vasopressin. Patient secretions. Family at the bedside. Active Medications Albuterol/Ipratropium (Ipratropium-Albuterol 3 Ml Neb) 3 ml INHALATION RT-Q4H PRN PRN Reason: shortness of breath Last Admin: 09/18/24 16:09 Dose: 3 ml Artificial Tears (Artificial Tears-Hypromellose Drops 15 Ml Btl) 1 drops BOTH EYES QID PRN PRN Reason: Dry Eye(s) Last Admin: 09/04/24 12:52 Dose: 1 drops Fentanyl (Fentanyl 100mcg/Hr Patch) 1 patch TRANSDERM Q72H ANNIE; Protocol Last Admin: 09/16/24 10:46 Dose: 1 patch Hydrocortisone Sodium Succinate (Hydrocortisone Succinate 100 Mg/2 Ml Vial) 50 mg IV Q8HR ANNIE Last Admin: 09/18/24 15:32 Dose: 50 mg Hydromorphone HCl (Hydromorphone 1 Mg/Ml 1 Ml Syringe) 1 mg IVP Q3H PRN PRN Reason: Pain Last Admin: 09/17/24 17:05 Dose: 1 mg Fat Emulsion Intravenous 250 (ml/ IV Solution) 250 mls @ 21 mls/hr IV Q72H ANNIE Last Admin: 09/17/24 10:15 Dose: 21 mls/hr Ceftolozane/Tazobactam 3 gm/ (Sodium Chloride) 100 mls @ 100 mls/hr IV Q8HR ANNIE; Protocol Last Admin: 09/18/24 16:10 Dose: 100 mls/hr Vancomycin HCl 1,500 mg/ (Sodium Chloride) 500 mls @ 167 mls/hr IVPB Q16H ANNIE Last Admin: 09/18/24 05:40 Dose: 167 mls/hr Vasopressin 20 unit/ Sodium (Chloride) 51 mls @ 4.59 mls/hr IV .Q11H7M ANNIE; Protocol Last Titration: 09/18/24 13:00 Dose: 0 units/min, 0 mls/hr Anidulafungin 100 mg/ Sodium (Chloride) 130 mls @ 84 mls/hr IVPB DAILY [facility]; Protocol Last Admin: 09/18/24 09:30 Dose: 84 mls/hr Parenteral Vitamin Supplement 10 ml/ Zinc/Copper/Manganese/Selenium 1 ml/ Magnesium Sulfate 2 gm/ Sodium Acetate 60 meq/ Calcium Gluconate 0.5 gm/ Amino Acids/Dextrose 1,050 mls @ 75 mls/hr IV .BY DURATION ANNIE Magnesium Sulfate 2 gm/ Sodium Acetate 60 meq/ Calcium Gluconate 0.5 gm/ Amino Acids/Dextrose 1,039 mls @ 75 mls/hr IV .BY DURATION [facility] Last Admin: 09/18/24 09:38 Dose: 75 mls/hr Norepinephrine Bitartrate 32 (mg/ Sodium Chloride) 250 mls @ 1.516 mls/hr IV .Q24H [facility]; Protocol Last Titration: 09/18/24 16:48 Dose: 0.08 mcg/kg/min, 4.043 mls/hr Propofol 1,000 mg/ IV Solution 100 mls @ 32.34 mls/hr IV .Q3H6M [facility]; Protocol Last Admin: 09/18/24 14:28 Dose: 15 mcg/kg/min, 9.702 mls/hr Furosemide 100 mg/ Sodium (Chloride) 100 mls @ 20 mls/hr IV .Q5H [facility] Last Admin: 09/18/24 13:47 Dose: 20 mg/hr, 20 mls/hr Lorazepam (Lorazepam 1 Mg/0.5 Ml Vial) 0.5 mg IV Q6HR PRN PRN Reason: Anxiety Last Admin: 09/15/24 18:26 Dose: 0.5 mg Miscellaneous Information (Pneumonia Protocol Utilized 1 Each Misc) 1 each PO ONCE PRN PRN Reason: Per Protocol Miscellaneous Information (Potassium Replacement Protocol 1 Each Misc) 1 each MISCELLANE DAILY PRN; Protocol PRN Reason: Per Protocol Miscellaneous Information (Magnesium Replacement Protocol 1 Each Misc) 1 each MISCELLANE DAILY PRN; Protocol PRN Reason: Per Protocol Miscellaneous Information (Vancomycin Trough Due 1 Each Misc) 1 each MISCELLANE ONCE ONE Stop: 09/20/24 04:01 Naloxone HCl (Naloxone 0.4 Mg/Ml 1 Ml Vial) 0.2 mg IV Q2M PRN PRN Reason: Opioid Reversal Nystatin (Nystatin 100,000 Unit/Gm Powd 15 Gm) 1 applic TOPICAL BID [facility]; Protocol Last Admin: 09/18/24 09:33 Dose: 1 applic Ondansetron HCl (Ondansetron 4 Mg/2 Ml Vial) 4 mg IVP Q6HR PRN PRN Reason: Nausea And Vomiting Last Admin: 09/01/24 19:41 Dose: 4 mg Pantoprazole Sodium (Pantoprazole 40 Mg/10 Ml Vial) 40 mg IV DAILY [facility] Last Admin: 09/18/24 09:30 Dose: 40 mg Petrolatum (Zinc Oxide Paste (Z-Guard) 1 Applic) 1 applic TOPICAL BID PRN; Protocol PRN Reason: Wound Healing Psyllium Hydrophilic Mucilloid (Psyllium Husk 100% 6 Gm Packet) 6 gm PO BID [facility] Last Admin: 09/18/24 09:28 Dose: Not Given Social history: Patient started smoking at the age of [age] 1 pack a day stopped in 2016. Nonambulatory. Is cared by his son over. Who is also the DPOA Physical examination: VITAL SIGNS: 98.1, 82, 30, 133 x 48, 96% on ventilator GENERAL: In bed, sedated EYES: Pupils equal. Conjunctiva loan l. HEENT: External appearance of nose and ears normal, oral cavity grossly normal. NECK: JVD unable to assess; masses not palpable. Tracheostomy HEART: First and second heart sounds are normal; no edema. LUNGS: Respiratory rate increased, decreased breath sounds, some crackles ABDOMEN: Soft, nontender, liver spleen not palpable, no masses palpable. Double barrel ostomy. PSYCH: Able to answer questions by attempting to speak to normal. Not able phonate MUSCULOSKELETAL: Right BKA. Left foot drop. Left hand contracture. Right hand also with contracture but able to have some movements NEUROLOGICAL: Cranial nerves grossly intact; no facial asymmetry, slight movement in the right arm. Awake L INVESTIGATIONS, reviewed in the clinical context: September 18: White count 14.9 hemoglobin 7.6 ABG show pH of 7.2PCO2 of 68P O2 was 77 potassium was 6.1 repeat 5.2 creatinine 0.82 September 17: White count 20 hemoglobin 8.5 platelets 199 potassium 4.2 BUN 25 creatinine 0.4. ABG: pH 7.17 pCO2 79 PO277. September 02: White count 3.6 hemoglobin 9.7 platelets 130 potassium 3.9 BUN 23 creatinine 0.36 ionized calcium 4.3 TSH 2.7 Sputum culture: Pseudomonas aeruginosa: Sensitive to Zosyn, tobramycin, ceftazidime Sputum culture: Pseudomonas aeruginosa August 30: White count 3.5 hemoglobin 10.0 platelets 133 potassium 3.5 creatinine 0.36 August 29, 2024: White count 6.2 hemoglobin 12.3 platelets 216 sodium 128 potassium 3.1 BUN 50 creatinine 0.46 lactic acid 2.1 calcium 10.8 phosphorus 3.0 troponin I 0.016 UA: Negative for nitrite Influenza type A, type B, RSV, SARS-CoV-2: Not detected EKG tracing personally reviewed by me-normal sinus rhythm Chest x-ray film personally reviewed by me-right basilar infiltrate Previous labs: Sputum culture July 20, 2024: Pseudomonas aeruginosa Assessment plan: - basal pneumonia. Previous admission sputum was positive for Pseudomonas aeruginosa-:: Slow to respond Has received different antibiotics. Currently: Aniedulefungin IV, IV ceftolozane tazobactam, IV vancomycin Being followed by pulmonary, and ID - Septic shock: Worsening Patient on Levophed. Vasopressin - Acute on chronic hypoxic and hypercapnic respiratory failure, vent dependent at night at home: Slow to respond 70% FiO2 with a PEEP of 12 - Tracheostomy with trach collar - Normocytic anemia of chronic disease and hospital-acquired anemia from blood draws Follow H&H - Thrombocytopenia likely from sepsis Follow - Right below-knee amputation - Chronic quadriparesis. Including left foot drop. Left arm contracture. Some right hand contracture. Some movement in the right arm - Crohn's disease with double barrel ostomy bag in place since 09/2021 - TPN - Full code - DPOA, haylee PENA Prognosis remains guarded. IV propofol IV Levophed. Off vasopressin. IV antibiotics. Family at the bedside Past Medical History Past Medical History: CVA/TIA, Deep Vein Thrombosis (DVT), Pneumonia Additional Past Medical History / Comment(s): Hx CVA in 2012, DVT R arm, Crohns. colostomy Bag placed in 09/2021. History of Any Multi-Drug Resistant Organisms: MRSA, Other MDRO Date of last positivie culture/infection: 07/20/24-Other MDRO; 12/14/23-MRSA MDRO Source:: Other MDRO - sputum, BAL; MRSA- nasal Past Surgical History: Bowel Resection, Cholecystectomy, Orthopedic Surgery Additional Past Surgical History / Comment(s): Edith FINK, jena with chronic home vent Past Anesthesia/Blood Transfusion Reactions: No Reported Reaction Additional Past Anesthesia/Blood Transfusion Reaction / Comment(s): recalled from previous admission Smoking Status: Never smoker
[2024-09-19 05:03] LABS: ABG HCO3 24 mmol/L (21-25); ABG PCO2 52 mmHg (35-45); ABG PH 7.28 (7.35-7.45); ABG PO2 142 mmHg (83-108); ABG TCO2 26 mmol/L (19-24)
[2024-09-19 05:05] LABS: Allen Test Performed? no
[2024-09-19 05:16] LABS: African American GFR (CKD) 88 (>60 ml/min/1.73 sqM); Anion Gap 11 mmol/L; Basophils # (A) 0.01 10*3/uL (0.00-0.10); Basophils % (A) 0.1 %; Blood Urea Nitrogen 67 mg/dL (9-20); Calcium 7.6 mg/dL (8.4-10.2); Carbon Dioxide 22 mmol/L (22-30); Chloride 108 mmol/L (98-107); Eosinophils # (A) 0.00 10*3/uL (0.04-0.35); Eosinophils % (A) 0.0 %; Glucose 326 mg/dL (74-99); HCT 23.1 % (39.6-50.0); HGB 7.1 g/dL (13.0-17.0); Immature Platelet Fraction 7.6 % (1.1-6.1); Lymphocytes # (A) 0.87 10*3/uL (0.90-5.00); Lymphocytes % (A) 11.2 %; MCH 26.6 pg (27.0-32.0); MCHC 30.7 g/dL (32.0-37.0); MCV 86.5 fL (80.0-97.0); Magnesium 2.8 mg/dL (1.6-2.3); Monocytes # (A) 0.35 10*3/uL (0.20-1.00); Monocytes % (A) 4.5 %; Neutrophils # (A) 6.51 10*3/uL (1.80-7.70); Neutrophils % (A) 83.7 %; Non-African American GFR(CKD) 76 (>60 ml/min/1.73 sqM); Platelet Count 128 10*3/uL (140-440); Potassium 5.2 mmol/L (3.5-5.1); RBC 2.67 10*6/uL (4.40-5.60); RDW 20.4 % (11.5-14.5); Sodium 141 mmol/L (137-145); WBC 7.78 10*3/uL (4.50-10.00)
--- NOTE | 2024-09-19 07:19 | XR ---
EXAMINATION TYPE: XR chest 1V portable DATE OF EXAM: 09/19/2024 5:17 AM COMPARISON: Chest radiograph from one day prior. CLINICAL INDICATION: Male, 49 years old with history of trached on mechanical ventilator; [facility] TECHNIQUE: XR chest 1V portable Frontal view of the chest. FINDINGS: Lungs/Pleura: No evidence of focal consolidation or pneumothorax. Blunting of the costophrenic angles is present. Pulmonary vascularity: Unremarkable. Heart/mediastinum: Cardiomediastinal silhouette is unremarkable. Musculoskeletal: No acute osseous pathology. Other findings: None Lines/Tubes: Tracheostomy cannula tip projecting over the trachea. Right-sided PICC line with distal tip at the cavoatrial junction. IMPRESSION: 1. Similar Multifocal airspace opacities concerning for pneumonia. 2. Small bilateral pleural effusions. [facility], , 09/19/2024 7:16 AM
[2024-09-19] MEDS ORDERED: DEXTROSE 50% SYRINGE 50 ML IVP PRN ×2 (08:25)
[2024-09-19 08:33] LABS: Glucose,Whole Blood 358 mg/dL (70-110)
[2024-09-19] MEDS: INSULIN LISPRO (HumaLOG) 100 UNIT/ML 10 mL VL SQ SCH ×2 (08:34→11:52)
[2024-09-19] MEDS: ENOXAPARIN 80 MG/0.8 ML SYRINGE SQ SCH (09:09)
--- NOTE | 2024-09-19 10:04 | P.PN ---
Subjective Progress Note Date: 09/19/24 Principal diagnosis: Acute on chronic hypoxic respiratory failure secondary to bilateral pneumonia secondary to multidrug resistant Pseudomonas aeruginosa., And secondary to fungemia This is a 49-year-old white male familiar to my service, history of paraplegia, home vent dependent, history of tracheostomy, patient had multiple admissions to the ICU for recurrent episodes of pneumonia and respiratory failure requiring ventilatory support. On his last admission patient was eventually discharged home on a home ventilator, and this was back on 08/04/2024. Patient was disch arged home with a PICC line, patient was in the ER yesterday on 08/28 for abnormal labs mostly low potassium and low sodium discharged home however he came back today complaining of shortness of breath, has been ventilator dependent all along. Chest x-ray showed basically bibasilar opacities/atelect asis, doubt pneumonia, the findings in the left lower lobe are chronic. Patient did have previous history of pneumonia involving the left lower lobe and he had multiple bronchoscopies in the past. Bronchial cultures and sputum cultures have been positive in the past for mostly Pseudomonas aeruginosa. Patient was seen in the ER today, and he is already on cefepime for empiric coverage for potential left lower lobe pneumonia, patient had abnormal electrolytes with relatively low sodium low potassium, no leukocytosis, normal renal profile, blood pressure was soft, and he was given fluid boluses. Lactic acid was 2.1, D-dimer is normal, patient was admitted, and this consult was initiated. 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 09/10/2024, patient is awake and alert and communicating. Continues to have on and off episodes of shortness of breath while being on a mechanical ventilator. Oxygenation is borderline and the patient's pulse ox remains low. Unable to obtain any blood gases as the patient has declined arterial blood draws. He is on assist-control mode rate of 20, tidal volume of 450, FiO2 of 70% with a PEEP of 10. Remains on TPN at rate of 35 cc an hour and lactated Ringer at rate of 50 cc an hour. Fluid balance is +2.6 L over the past 24 hours.the white cell count is 6.3, hemoglobin is at 7.4, platelet count is a 73 and the patient remains on therapeutic dose of Lovenox. The patient's sodium levels at 143, K is at 3.3, bicarb is at 40 with a BUN of 21 and a creatinine of 0.8. Blood sugar is 140. The most recent lavage from the right lower lobe was positive for Pseudomonas aeruginosa and corynebacterium. The patient remains on a combination of ceftazidime antibacterial combination, tobramycin and IV vancomycin. Output from ileostomy is in order of 800 cc over the past 8 hours. Remains on IV Lasix. Chest x-ray is unchanged and it shows bilateral pulmonary infiltrates, diffuse increased interstitial lung markings, lines and catheters are in place, tracheostomy tube is in place. 09/11/2024, the patient is stable, awake and alert and communicating. Remains on TPN for nutritional support with rate of 75 cc an hour. Remains on the same mechanical ventilator settings and the patient remains on assist-control mode at rate of 20, tidal volume of 450, FiO2 of 60% with a PEEP of 8. Fluid balance is -50 cc over the past 24 hours and the patient remains on IV Lasix 20 mg every 8 hours. The biotic coverage remains unchanged and the patient remains on a combination of ceftazidime IV Bactrim, tobramycin and vancomycin. The white cell count is at 4.7 with a hemoglobin of 7.1 and a platelet count of 89. BUN is 20 with a creatinine of 0.25. Sodium levels at 142. Serum iron levels at 16. Vancomycin trough is at 17. Follow-up chest x-ray from today shows stable bilateral pulmonary filtrates and pleural effusions bilaterally. Tracheostomy tube remains in good location. The patient continues to have high output through the ileostomy. Currently afebrile. No cardiac arrhythmias have been noted. 09/12/2024, patient is resting comfortably in bed. Remains on a mechanical ventilator. Unable to wean. Chest x-ray still showing bilateral pulmonary filtrates consistent with pneumonia. The patient is on assist-control mode at rate of 20, tidal volume of 450, FiO2 of 50% and a PEEP of 8. Remains negative fluid balance as the patient is being diuresed with IV Lasix. Fluid balance is -1 L over the past 24 hours. Remains on Lasix 20 mg IV push every 8 hours. Hemoglobin from this morning was 5.8. Repeat hemoglobin came back at 7.4. Platelet counts are stable. No evidence of any GI bleeding. Remains on Lovenox therapeutic dose. Remains on TPN at rate of 75 cc an hour. White cell count is at 5, platelet count is at 93, BUN is 25 with a creatinine 0.4. Sodium levels at 144 and a potassium level is at 3.6. Ileostomy still functioning. Remains on broad-spectrum antibiotics. Remains on ceftolozane/tazobactam. Remains on vancomycin. Remains on stress dose hydrocortisone. 09/13/2024, the patient is being seen for a follow-up. No change in his condition over the past 24 hours. Remains on a mechanical ventilator. Awake and alert and communicating. Started on fentanyl patch and his pain is under better control and the patient is using fentanyl patch 75 mcg every 72 hours. Remains assist-control mechanical ventilation at rate of 20, tidal volume of 450, FiO2 50% with a PEEP of 8. Chest x-ray from today shows stable bilateral pulmonary infiltrates, no significant change compared to yesterday and the tracheostomy tube remains in place. The patient continues to have multifocal airspace disease. Fluid balance is +30 cc over the past 24 hours. TPN is running at a rate of 75 cc an hour. Afebrile. Hemoglobin in this morning was at 5.8. Recheck was 6.1. The platelet count is 817. Sodium is at 148, potassium 3.2, BUN 26 with a creatinine of 0.44. Serum bicarb is at 38. The patient has a triglyceride level of 152. Remains on ceftolozane tazobactam and vancomycin. Seen today on 09/14/24, patient remains intubated, mechanically ventilated, arousable, follows simple instructions, he is on assist-control rate of 20 tidal volume 450 FiO2 50% and PEEP of 6 patient is spiking temps he had a temp as high as 102 remains on Zerbaxa and vancomycin his hemoglobin is low today 6.9 will give a unit of packed RBCs still requiring norepinephrine at 0.12 mcg/kg/min he is also on TPN at 75 cc/h. Not much of a change noted in his overall clinical picture, patient remains quite ill and septic. Labs today show WBC of 6.4 hemoglobin 6.9 electrolytes are normal sodium is 147 renal profile is normal, chest x-ray continues to show multifocal airspace opacities and small bilateral pleural effusions. Seen today on 09/15/2024, patient was seen in consultation, remains in the ICU intubated and mechanically ventilated, assist-control rate of 20 tidal volume 450 FiO2 60% PEEP of 8 no ABG done today. However his chest x-ray continues to show significant bibasilar infiltrates right more so than left. Patient is still requiring norepinephrine at 0.08 mcg/kg/min. Sputum cultures were noted positive for Pseudomonas and corynebacterium patient remains on Zerbaxa and vancomycin. Looking back at the clinical history of this patient and his previous admissions and previous notes, I believe we have not making any progress or any significant improvement since admission. Today I had a chance to discuss CODE STATUS again with the patient and explained to him that his overall picture does not seem to be very promising, I also discussed with the patient the option of hospice, patient is undecided at this point, he will think about it. WBC count is 7.07 hemoglobin 7.5 patient did receive a unit of packed RBCs yesterday for hemoglobin of 6.9. Electrolytes are normal renal profile is normal, chest x-ray continues to show infiltrates mostly in the right lower lobe more so than the left lower lobe. Patient was seen today on 09/16/2024, patient is basically about the same. Hardly any improvement noted in the last few weeks since admission, patient remains intubated, mechanically ventilated, same ventilator settings, assist-control rate of 20 tidal volume 450 FiO2 60% and PEEP of 8 ABG was not done today, no easy access, attempted to place arterial lines in this patient, but could not pass a wire although the arteries including femoral artery and left brachial artery were easily cannulated. No further attempts made for arterial access. Patient remains on norepinephrine at 0.13 mcg/kg/min still on TPN at 75 cc/h still on Zerbaxa and vancomycin chest x-ray showed worsening today of bilateral infiltrates possibly some component of fluid overload and I recommended Lasix 20 mg IV push twice daily. Patient seems to be quite swollen and edematous. WBC count is 5.4 hemoglobin 7.6 electrolytes showed sodium of 146 potassium 4.1 BUN 20 creatinine 0.47 Patient was seen today on 09/17/2024, patient seems to be deteriorating steadily over the last 24 hours, he is developing profound hypotension requiring pressors in the form of Levophed at 0.4 mcg/kg/min he is also on vasopressin at 0.04 units/min he is on TPN at 75 cc/h hemoglobin is noted to be low at 6.9, patient has positive yeast in the blood/fungemia he is on fluconazole, this is being addressed by infectious disease on the case. Earlier ABG showed a pO2 of 77 pCO2 88 pH of 7.13, Vent settings were adjusted with increasing the rate to 36. He is now on tidal volume of 350 FiO2 100% PEEP is 10 and rate is 36. Another ABG is pending. But clearly patient is taking a downhill clinical course. Patient is quite septic, I will likely change his central line, and place a new central line in this patient today and remove the old central line/PICC line. Patient will receive a unit of packed RBCs for hemoglobin of 6.9. Considering the change in his overall clinical status, discussed his condition with son, would like to keep his dad as a full code, he is very well aware of the poor prognostic picture and how ill his dad is. Would like to keep him a full code. WBC count today is 20.03 hemoglobin 8.5, basic metabolic profile is normal BUN is 25 creatinine 0.4 total protein is 6.9 albumin is 1.9. Patient was seen today on 09/18/24, remains in the ICU, intubated and mechanically ventilated. Patient is still requiring assist-control rate of maximal ventilatory support with rate of 36 tidal volume increased today up to 400 FiO2 decreased from 100% to 70% PEEP remains at 12. Earlier ABG before changes were made at the FiO2 had been on tidal volume showed a pO2 of 77 pCO2 68 pH of 7.20. Patient is still requiring norepinephrine and I have been titrating the norepinephrine earlier this morning he is down to 0.18 from 0.46 yesterday micrograms per kilo per minute vasopressin is still at 0.04 units/min patient is on propofol at 50 mcg/kg/min Lasix drip at 20 mg/h and TPN at 75 cc/h. I am also treating the patient with vancomycin, Zerbaxa, and Eraxis was added to replace fluconazole yesterday by infectious disease specially with his positive blood cultures for Bella. Urine output is improving with the Lasix drip, he did not improve much with 1 dose of Lasix 60 mg IV push. Remains on Solu-Cortef at 100 mg IV push every 8 hours patient is in positive fluid balance about 6 L hence I decided to go with Lasix drip today. Labs today showed slight improvement in his WBC count down to 14.9 hemoglobin is 7.6, electrolytes are abnormal with a potassium of 6.1 BUN is 45 creatinine 0.82 chest x-ray continues show bilateral interstitial edema/infiltrates, could be cardiogenic or noncardiogenic pulmonary edema I believe it is mostly cardiogenic/related to fluid overload as he received significant fluids yesterday for low blood pressure. And he was not making much urine in the last 24 hours. Hence Lasix drip was started today. Patient was seen today on 09/19/2024, remains in the ICU, remains intubated and mechanically ventilated. Patient is on assist-control rate of 36 tidal volume 400 FiO2 65% and PEEP of 12. His ABG showed a pO2 of 142 pCO2 52 pH of 7.28, hence cut down his FiO2 down to 50%. The PEEP at 12. Patient remains hemodynamically unstable, remains on norepinephrine at 0.08 mcg/kg/min, his vasopressin has been discontinued. TPN is at 75 cc/h. Remains on Lasix drip/infusion at 20 mg/h. He is on propofol at 50 mcg/kg/min remains on Solu- Cortef 50 mg every 8, Eraxis, Zerbaxa, vancomycin. Urine output is marginal at about 10 to 20 cc/h in spite of Lasix drip. Lovenox will be resumed today at 80 mg subcu twice daily. Patient is sedated, his overall clinical status is showing slight improvement compared to the clinical status couple of days ago. Chest x-ray continues to show evidence of interstitial edema although the possibility of ARDS is not entirely ruled out considering his overall septic picture. CBC is about the same with WBC of 7.7 hemoglobin 7.1. Platelets are 128,000. Basic metabolic profile is normal potassium is down to 5.2 BUN is 67 creatinine is slightly higher today 1.13. Blood sugar is 358. Objective - Vital Signs Vital signs: Vital Signs Temp 97.1 F L 09/19/24 04:00 Pulse 62 09/19/24 09:41 Resp 36 H 09/19/24 04:15 BP 114/42 09/17/24 10:15 Pulse Ox 96 09/19/24 04:15 FiO2 50 09/19/24 09:35 Intake & Output 09/18/24 09/19/24 09/19/24 18:59 06:59 18:59 Intake Total 2235.450 2391.520 292.636 Output Total 1225 205 20 Balance 5322.309 8635.520 272.636 Weight 111.2 kg Intake: IV 1405 1795 100 0.9 75 55 5 Anidulafungin 200 mg In 200 Sodium Chloride 0.9% 200 ml @ 84 mls/hr IVPB ONCE ONE Rx#:[id number] Ceftolozane/Tazobactam 3 200 100 gm In Sodium Chloride 0.9 % 100 ml @ 100 mls/hr IV Q8HR ANNIE Rx#:[id number] Furosemide 100 mg In 160 Sodium Chloride 0.9% 90 ml @ 20 MG/HR 20 mls/hr IV .Q5H ANNIE Rx#:[id number] Lasix gtt 20 240 20 TPN 750 900 75 Vancomycin 1,500 mg In 500 Sodium Chloride 0.9% 500 ml 500 ml @ 167 mls/hr IVPB Q16H ANNIE Rx#: [id number] Intake, IV Titration 830.450 596.520 192.636 Amount Ceftolozane/Tazobactam 3 100 gm In Sodium Chloride 0.9 % 100 ml @ 100 mls/hr IV Q8HR ANNIE Rx#:[id number] Furosemide 100 mg In 157.333 183 84.667 Sodium Chloride 0.9% 90 ml @ 20 MG/HR 20 mls/hr IV .Q5H ANNIE Rx#:[id number] Norepinephrine 32 mg In 79.771 65.041 14.183 Sodium Chloride 0.9% 218 ml @ 0.03 MCG/KG/MIN 1. 516 mls/hr IV .Q24H ANNIE Rx#:[id number] Norepinephrine 8 mg In 149.755 Sodium Chloride 0.9% 250 ml @ 0.03 MCG/KG/MIN 5. 003 mls/hr IV .Q24H ANNIE Rx#:[id number] Vasopressin 20 unit In 64.643 Sodium Chloride 0.9% 50 ml @ 0.03 UNITS/MIN 4.59 mls/hr IV .Q11H7M ANNIE Rx# :[id number] propofoL 1,000 mg In 278.948 348.479 93.786 Empty Bag 1 bag @ 50 MCG/ KG/MIN 32.34 mls/hr IV . Q3H6M ANNIE Rx#:[id number] Output: Drainage 1000 Medial Abdomen 1000 Urine 225 205 20 Other: Voiding Method Indwelling Catheter Indwelling Catheter Indwelling Catheter ABP, PAP, CO, CI - Last Documented Arterial Blood Pressure 115/42 - Exam GENERAL EXAM: 49-year-old white male intubated mechanically ventilated patient has a chronic tracheostomy, patient is sedated on propofol. HEAD: Normocephalic. Tracheostomy is intact. EYES: Normal reaction of pupils, equal size. NOSE: Clear with pink turbinates. THROAT: Tracheostomy tube secured in place. NECK: No masses, no JVD. Patient has now a left subclavian central line/triple- lumen catheter which I placed yesterday. CHEST: No chest wall deformity. LUNGS: Coarse rhonchi noted bilaterally. Symmetrical chest expansion CVS: S1 and S2 normal with no audible murmur, regular rhythm. ABDOMEN: Enterocutaneous fistula over the abdominal wall. No hepatosplenomegaly, normal bowel sounds. SKIN: No rashes, patient is quite edematous CENTRAL NERVOUS SYSTEM: Unable to assess, patient is fully sedated EXTREMITIES: Bilateral edema, extensive muscle atrophy. Contractures. There is no peripheral edema. No clubbing, no cyanosis. Peripheral pulses are intact. Right below-knee amputation is noted. - Labs CBC & Chem 7: 09/19/24 04:45 09/19/24 04:45 Labs: Abnormal Lab Results - Last 24 Hours (Table) 09/18/24 09/19/24 09/19/24 Range/Units 15:55 04:45 04:45 RBC 2.67 L (4.40-5.60) 10*6/uL Hgb 7.1 L (13.0-17.0) g/dL Hct 23.1 L (39.6-50.0) % MCH 26.6 L (27.0-32.0) pg MCHC 30.7 L (32.0-37.0) g/dL Plt Count 128 L (140-440) 10*3/uL MPV 13.4 H (9.5-12.2) fL Lymphocytes # 0.87 L (0.90-5.00) 10*3/uL Eosinophils # 0.00 L (0.04-0.35) 10*3/uL Immature Plt Fraction 7.6 H (1.1-6.1) % ABG pH (7.35-7.45) ABG pCO2 (35-45) mmHg ABG pO2 (83-108) mmHg ABG Total CO2 (19-24) mmol/L ABG O2 Saturation (94-97) % Hemoglobin (13.0-17.5) gm/dL Potassium 5.2 H 5.2 H (3.5-5.1) mmol/L Chloride 108 H (98-107) mmol/L BUN 67 H (9-20) mg/dL Glucose 326 H (74-99) mg/dL POC Glucose (mg/dL) (70-110) mg/dL Calcium 7.6 L (8.4-10.2) mg/dL Phosphorus 5.9 H (2.5-4.5) mg/dL Magnesium 2.8 H (1.6-2.3) mg/dL 09/19/24 09/19/24 Range/Units 04:54 08:30 RBC (4.40-5.60) 10*6/uL Hgb (13.0-17.0) g/dL Hct (39.6-50.0) % MCH (27.0-32.0) pg MCHC (32.0-37.0) g/dL Plt Count (140-440) 10*3/uL MPV (9.5-12.2) fL Lymphocytes # (0.90-5.00) 10*3/uL Eosinophils # (0.04-0.35) 10*3/uL Immature Plt Fraction (1.1-6.1) % ABG pH 7.28 L (7.35-7.45) ABG pCO2 52 H (35-45) mmHg ABG pO2 142 H (83-108) mmHg ABG Total CO2 26 H (19-24) mmol/L ABG O2 Saturation 99.4 H (94-97) % Hemoglobin 7.1 L (13.0-17.5) gm/dL Potassium (3.5-5.1) mmol/L Chloride (98-107) mmol/L BUN (9-20) mg/dL Glucose (74-99) mg/dL POC Glucose (mg/dL) 358 H (70-110) mg/dL Calcium (8.4-10.2) mg/dL Phosphorus (2.5-4.5) mg/dL Magnesium (1.6-2.3) mg/dL Microbiology - Last 24 Hours (Table) 09/15/24 10:20 Blood Culture Gram Stain - Final Blood Blood Culture - Final Bella parapsilosis group Molecular ID Assessment and Plan Assessment: Impression: Acute on chronic hypoxic respiratory failure still intubated and mechanically ventilated, multifactorial but mostly related to multidrug- resistant Pseudomonas aeruginosa pneumonia., And now he has candidemia/Bella parapsilosis group Septic shock, secondary to pneumonia patient is on Zerbaxa and vancomycin. Candidemia with positive yeast in blood cultures most likely source is his PICC line which I have removed yesterday and I placed a new right subclavian central line. To replace it for now he will eventually need another PICC line in the future. Chronic hypoxic and hypercapnic respiratory failure, patient is ventilator d ependent, patient has been recently on home ventilator History of severe tracheal stenosis History of tracheostomy History of recurrent pneumonias involving left lower lobe Tracheobronchomalacia History of DVT History of CVA History of right below-knee amputation History of asystole/cardiac arrest 2021. 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 Patient is maintained mostly on TPN. Bipedal edema with fluid overload hence patient was placed on Lasix. Recommendation: Continue ventilatory support, patient is not ready for any weaning, remind you patient has a home ventilator. Continue hemodynamic, patient is now requiring norepinephrine but is on vasopressin which she was on yesterday. Continue Eraxis for his candidemia/fungal sepsis Continue antibiotics for his resistance to Pseudomonas pneumonia Continue TPN/nutritional support Continue Lasix drip at 20 mg/h Continue GI and DVT prophylaxis/Protonix and Lovenox Continue bronchodilators Patient to go back on Lovenox Cut down on the stress doses of hydrocortisone 50 mg IV push every 12 hours Remains very critically ill. Critical care time is 35 minutes We will continue to follow Time with Patient: Greater than 30
[2024-09-19 11:49] LABS: Glucose,Whole Blood 347 mg/dL (70-110)
[2024-09-19] MEDS: VANCOMYCIN TROUGH DUE 1 EACH MISC MISCELLANE ONE (11:50)
[2024-09-19] MEDS ORDERED: VANCOMYCIN IV PER PHARMACY 1 EACH MISC MISCELLANE PRN (12:25)
--- NOTE | 2024-09-19 14:58 | P.PN ---
Progress Note - Text Progress Note Date: 09/19/24 Chief Complaint: Short of breath 49-year-old patient, follows with Dr. Murcia History of paraplegia, home vent at night, tracheostomy multiple admissions to the ICU for recurrent pneumonia. Patient's previous bronchial cultures been positive for Pseudomonas. He was discharged recently on IV cefepime. Also has a history of Crohn's disease with previous colectomy diverting ileostomy. History of DVT for which patient is on subcu Lovenox. Also had drug-resistant MRSA Pseudomonas. Patient currently does not have areas significant trach secretions. He has continues TPN. Has a right BKA. He does have slight movement in the right hand. Able to follow commands by nodding his head. Answering questions. He is scared by his elder son open. I was also the DPOA. August 30: Overnight patient started having more secretions through the tracheostomy. Vancomycin was added. Also blood pressure running low patient was put on Levophed drip. Otherwise sinus rhythm. Patient remains on the ventilator. Will also send off stool for C. difficile. Also patient IV cefepime. Getting TPN. August 31: ICU. Patient had positive fluid balance. Was given IV Lasix earlier. Remains on Levophed. Spiking fevers. Getting TPN. Stool negative for C. difficile. Patient is growing MDRO Pseudomonas aeruginosa. ID is ordered IV Zerbaxa. Which is currently not available. Patient's friend is visiting him in the ICU. Light trach secretion September 01: ICU. On the ventilator. FiO2 45%. PEEP of 5. Continues to have light trach secretions. Sputum cultures again growing Pseudomonas. Zerbaxa was obtained and resumed. Blood pressure running low. On Levophed. Patient's younger son at the bedside. Colostomy working fine. Has been spiking fevers. Cooling blanket. Ice packs. September 02: ICU. Ventilator FiO2 45%. PEEP of 5. Continues to have some trach secretions. IV Zerbaxa IV tobramycin. TPN lipids to continue. Also Levophed. Patient started cooling blankets since yesterday for temperatures. Along with the nurse speech therapy records were reviewed from last few admissions. Patient with multiple MBS and bedside swallow eval. No trouble with swallowing. Patient put on a chopped diet. Thin liquids. Patient did spike a fever of 101.7 earlier today. Low ionized calcium. IV gluconate given. September 03: ICU. On ventilator FiO2 45%. PEEP of 5. Mild trach secretions. Getting IV TPN lipids. IV tobramycin. Zerbaxa was substituted to Avycaz. By ID. No fever per se since yesterday. For blood pressure patient is also on Levophed and vasopressin. September 04: ICU. On ventilator FiO2 45%. PEEP of 5. Clear trach secretions. Getting IV TPN lipids. IV tobramycin. And IV Avycaz. Remains afebrile.. On Levophed and vasopressin. Awake. 09/06/2024 Patient is seen and evaluated in ICU; remains on mechanical ventilator, actually his home ventilator, with settings of volume assist-control, rate 20, tidal volume 450, FiO2 45%, PEEP of 5. - patient has been refusing blood; no ABGs to. He is getting lactated Ringer's at 50 cc an hour, TPN at 65 cc an hour. - patient remains on the same antibiotics. - Labs reviewed which reveal white count 5.21, hemoglobin 7.9, hematocrit 27.5, and platelet count 64,000. Sodium 141, potassium 3.5, chlorides 102, CO2 32, BUN 25, and creatinine 0.35. Glucose is 152. Calcium is 8. Albumin is 2.1. -Chest x-ray is largely unchanged. Critical care managing mechanical ventilation; recommending to add scopolamine patch for increased secretion -Patient remains on Avycaz and tobramycin - Continue with current TPN 09/07 Patient remains in the ICU lethargic. He is s/p tracheostomy Overnight he was more hypoxic they have to increase PEEP to 8. Also has a lot of secretions when needed for secretions suctioning to try to become apneic per Staff. Patient currently receiving Avycaz and tobramycin. on TPN also 09/08 Patient remains in the ICU awake and alert status post tracheostomy. He has contractures of both upper and lower extremities He is complaining from pain in his lungs. He is status post flexible bronchoscopy and bronchoalveolar lavage yesterday. He has previous sputum culture positive for Pseudomonas currently covered with ceftazidime and tobramycin. He is also on Lovenox 90 mg 09/09 Patient still in the ICU on mechanical ventilation via tracheostomy. PEEP is 8.0 as is yesterday Also he spiked little fever to 100.7. IV vancomycin is added to tobramycin and ceftazidime He is getting also bronchoscopy follow-up culture results 09/10 Patient feels clinically the same, he still getting breathing via mechanical ventilation through his tracheostomy with PEEP of 8. Patient feels he is required suctioning through his tracheostomy tube. He denies chest pain or pain anywhere else he can communicate by head signs and gestures. Hemodynamically stable and afebrile hemoglobin 7.4 platelet count 73 Glucose is controlled potassium 3.3 He remains on broad-spectrum antibiotic Rocephin at this time tobramycin and IV vancomycin added yesterday because he had low-grade fever. He is getting TPN. IV fluid Ringer lactate was stopped and patient was started on IV Lasix 20 mg 3 times a day continue with therapeutic dose of Lovenox as well 09/11 Patient remains in the ICU Remains on mechanical ventilation via tracheostomy He status post bronchoalveolar lavage 2 days ago, culture is growing Pseudomonas aeruginosa and corynebacterium Patient remains on broad-spectrum antibiotics with IV vancomycin, tobramycin, ceftazidime On IV Lasix also is on therapeutic dose of Lovenox 90 mg twice daily No IV fluids 09/12 Patient remains in the ICU Clinically close to what he was over the last 2 days still getting oxygen via his tracheostomy He remains on broad-spectrum antibiotic with Ceftin this time and IV vancomycin. Also he is on IV Lasix 20 mg and therapeutic dose of Lovenox. 09/13 Patient remains in the ICU on mechanical ventilation via tracheostomy Patient looks better today, he breathing better Less secretion Fentanyl patch increased 09/14. Patient seen and examined. Patient continues to be on mechanical ventilation via trach mask. Currently on TPN. Currently on IV Zerbaxa and vancomycin 09/15. Patient seen and examined.Vital signs done showed the patient overnight, heart rate 106, blood pressure 107/40, currently on ventilation. Labs reviewed showed WBC 7.27, hemoglobin 7.5, sodium 148 on potassium 4.3, BUN 23, creatinine 0.47 09/16. Patient seen and examined labs reviewed showing WBC 5.45, hemoglobin 9.6, platelet count 131, sodium 146, potassium 4.1, BUN 20, creatinine 0.47. Continue small amount of Levophed. Currently on Zerbaxa and vancomycin. Currently on TPN September 17: ICU. Patient has taken a turn for the worse today. Significant thick white secretions from the trach. Sinus rhythm. Receiving TPN. Patient is on Levophed and vasopressor. Rather high dose. FiO2 100 [address] PEEP of 10. Dr. Ho earlier spoke to the patient/family. Remains full code September 18: ICU. Intubated FiO2 70 PEEP of 12. Sinus rhythm. Drips include IV propofol at 50 and Levophed at 0.13. Patient is off vasopressin. Patient secretions. Family at the bedside. September 19: ICU. Intubated. FiO2 50 and a PEEP of 12. Drips include IV Levophed and propofol. Also started on Lasix drip 10 mg an hour yesterday. Secretions present. Active Medications Albuterol/Ipratropium (Ipratropium-Albuterol 3 Ml Neb) 3 ml INHALATION RT-Q4H PRN PRN Reason: shortness of breath Last Admin: 09/19/24 12:26 Dose: 3 ml Artificial Tears (Artificial Tears-Hypromellose Drops 15 Ml Btl) 1 drops BOTH EYES QID PRN PRN Reason: Dry Eye(s) Last Admin: 09/04/24 12:52 Dose: 1 drops Dextrose/Water (Dextrose 50% Syringe 50 Ml) 25 ml IVP PER PROTOCOL PRN; Protocol PRN Reason: Hypoglycemia Dextrose/Water (Dextrose 50% Syringe 50 Ml) 50 ml IVP PER PROTOCOL PRN; Protocol PRN Reason: Hypoglycemia Enoxaparin Sodium (Enoxaparin 80 Mg/0.8 Ml Syringe) 80 mg SQ Q12HR ANNIE Last Admin: 09/19/24 09:09 Dose: 80 mg Fentanyl (Fentanyl 100mcg/Hr Patch) 1 patch TRANSDERM Q72H ANNIE; Protocol Last Admin: 09/19/24 09:31 Dose: 1 patch Hydrocortisone Sodium Succinate (Hydrocortisone Succinate 100 Mg/2 Ml Vial) 50 mg IV Q12HR ANNIE Hydromorphone HCl (Hydromorphone 1 Mg/Ml 1 Ml Syringe) 1 mg IVP Q3H PRN PRN Reason: Pain Last Admin: 09/17/24 17:05 Dose: 1 mg Fat Emulsion Intravenous 250 (ml/ IV Solution) 250 mls @ 21 mls/hr IV Q72H ANNIE Last Admin: 09/17/24 10:15 Dose: 21 mls/hr Ceftolozane/Tazobactam 3 gm/ (Sodium Chloride) 100 mls @ 100 mls/hr IV Q8HR ANNIE; Protocol Last Admin: 09/19/24 08:14 Dose: 100 mls/hr Anidulafungin 100 mg/ Sodium (Chloride) 130 mls @ 84 mls/hr IVPB DAILY ANNIE; Protocol Last Admin: 09/19/24 09:32 Dose: 84 mls/hr Norepinephrine Bitartrate 32 (mg/ Sodium Chloride) 250 mls @ 1.516 mls/hr IV .Q24H ANNIE; Protocol Last Titration: 09/19/24 11:45 Dose: 0.1 mcg/kg/min, 5.053 mls/hr Propofol 1,000 mg/ IV Solution 100 mls @ 32.34 mls/hr IV .Q3H6M ANNIE; Protocol Last Admin: 09/19/24 14:52 Dose: 50 mcg/kg/min, 32.34 mls/hr Furosemide 100 mg/ Sodium (Chloride) 100 mls @ 20 mls/hr IV .Q5H ANNIE Last Admin: 09/19/24 12:13 Dose: 20 mg/hr, 20 mls/hr Parenteral Vitamin Supplement 10 ml/ Zinc/Copper/Manganese/Selenium 1 ml/ Sodium Acetate 60 meq/ Calcium Gluconate 0.5 gm/ Amino Acids/Dextrose 1,046 mls @ 75 mls/hr IV .BY DURATION ANNIE Sodium Acetate 60 meq/ Calcium Gluconate 0.5 gm/ Amino Acids /Dextrose 1,035 mls @ 75 mls/hr IV .BY DURATION [facility] Last Admin: 09/19/24 13:55 Dose: 75 mls/hr Insulin Human Lispro (Insulin Lispro (Humalog) 100 Unit/Ml 10 Ml Vl) 0 unit SQ Q6HR ANNIE; Protocol Last Admin: 09/19/24 11:52 Dose: 4 unit Lorazepam (Lorazepam 1 Mg/0.5 Ml Vial) 0.5 mg IV Q6HR PRN PRN Reason: Anxiety Last Admin: 09/15/24 18:26 Dose: 0.5 mg Miscellaneous Information (Pneumonia Protocol Utilized 1 Each Misc) 1 each PO ONCE PRN PRN Reason: Per Protocol Miscellaneous Information (Potassium Replacement Protocol 1 Each Misc) 1 each MISCELLANE DAILY PRN; Protocol PRN Reason: Per Protocol Miscellaneous Information (Magnesium Replacement Protocol 1 Each Misc) 1 each MISCELLANE DAILY PRN; Protocol PRN Reason: Per Protocol Miscellaneous Information (Vancomycin Iv Per Pharmacy 1 Each [facility]) 1 each MISCELLANE DIRECTED PRN PRN Reason: Per Protocol Naloxone HCl (Naloxone 0.4 Mg/Ml 1 Ml Vial) 0.2 mg IV Q2M PRN PRN Reason: Opioid Reversal Nystatin (Nystatin 100,000 Unit/Gm Powd 15 Gm) 1 applic TOPICAL BID ANNIE; Protocol Last Admin: 09/19/24 10:02 Dose: 1 applic Ondansetron HCl (Ondansetron 4 Mg/2 Ml Vial) 4 mg IVP Q6HR PRN PRN Reason: Nausea And Vomiting Last Admin: 09/01/24 19:41 Dose: 4 mg Pantoprazole Sodium (Pantoprazole 40 Mg/10 Ml Vial) 40 mg IV DAILY ANNIE Last Admin: 09/19/24 08:13 Dose: 40 mg Petrolatum (Zinc Oxide Paste (Z-Guard) 1 Applic) 1 applic TOPICAL BID PRN; Protocol PRN Reason: Wound Healing Social history: Patient started smoking at the age of [age] 1 pack a day stopped in 2016. Nonambulatory. Is cared by his son over. Who is also the DPOA Physical examination: VITAL SIGNS: Afebrile, 72, 36, 124 x 46, 94% GENERAL:, sedated EYES: Pupils equal. Conjunctiva loan l. HEENT: External appearance of nose and ears normal, oral cavity dry NECK: JVD unable to assess; masses not palpable. Tracheostomy HEART: First and second heart sounds are normal; no edema. LUNGS: Respiratory rate increased, decreased breath sounds, some crackles ABDOMEN: Soft, nontender, liver spleen not palpable, no masses palpable. Double barrel ostomy. PSYCH: Able to answer questions by attempting to speak to normal. Not able phonate MUSCULOSKELETAL: Right BKA. Left foot drop. Left hand contracture. Right hand also with contracture but able to have some movements NEUROLOGICAL: Cranial nerves grossly intact; no facial asymmetry, slight movement in the right arm. Awake L INVESTIGATIONS, reviewed in the clinical context: September 18: White count 14.9 hemoglobin 7.6 ABG show pH of 7.2PCO2 of 68P O2 was 77 potassium was 6.1 repeat 5.2 creatinine 0.82 September 17: White count 20 hemoglobin 8.5 platelets 199 potassium 4.2 BUN 25 creatinine 0.4. ABG: pH 7.17 pCO2 79 PO277. September 02: White count 3.6 hemoglobin 9.7 platelets 130 potassium 3.9 BUN 23 creatinine 0.36 ionized calcium 4.3 TSH 2.7 Sputum culture: Pseudomonas aeruginosa: Sensitive to Zosyn, tobramycin, ceftazidime Sputum culture: Pseudomonas aeruginosa August 30: White count 3.5 hemoglobin 10.0 platelets 133 potassium 3.5 creatinine 0.36 August 29, 2024: White count 6.2 hemoglobin 12.3 platelets 216 sodium 128 potassium 3.1 BUN 50 creatinine 0.46 lactic acid 2.1 calcium 10.8 phosphorus 3.0 troponin I 0.016 UA: Negative for nitrite Influenza type A, type B, RSV, SARS-CoV-2: Not detected EKG tracing personally reviewed by me-normal sinus rhythm Chest x-ray film personally reviewed by me-right basilar infiltrate Previous labs: Sputum culture July 20, 2024: Pseudomonas aeruginosa Assessment plan: - basal pneumonia. Previous admission sputum was positive for Pseudomonas aeruginosa-:: Slow to respond Has received different antibiotics. Currently: Aniedulefungin IV, IV ceftolozane tazobactam, IV vancomycin Being followed by pulmonary, and ID - Fluid overload On Lasix drip - Septic shock: Not improving Patient on Levophed. Vasopressin discontinued - Acute on chronic hypoxic and hypercapnic respiratory failure, vent dependent at night at home: Slow to respond 70% FiO2 with a PEEP of 12 - Tracheostomy with trach collar - Normocytic anemia of chronic disease and hospital-acquired anemia from blood draws Follow H&H - Thrombocytopenia likely from sepsis Follow - Right below-knee amputation - Chronic quadriparesis. Including left foot drop. Left arm contracture. Some right hand contracture. Some movement in the right arm - Crohn's disease with double barrel ostomy bag in place since 09/2021 - TPN - Full code - DPOA, son BECKY Prognosis remains guarded. IV propofol IV Levophed. IV antibiotics. Lasix drip Past Medical History Past Medical History: CVA/TIA, Deep Vein Thrombosis (DVT), Pneumonia Additional Past Medical History / Comment(s): Hx CVA in 2012, DVT R arm, Crohns. colostomy Bag placed in 09/2021. History of Any Multi-Drug Resistant Organisms: MRSA, Other MDRO Date of last positivie culture/infection: 07/20/24-Other MDRO; 12/14/23-MRSA MDRO Source:: Other MDRO - sputum, BAL; MRSA- nasal Past Surgical History: Bowel Resection, Cholecystectomy, Orthopedic Surgery Additional Past Surgical History / Comment(s): R BKA, trach with chronic home vent Past Anesthesia/Blood Transfusion Reactions: No Reported Reaction Additional Past Anesthesia/Blood Transfusion Reaction / Comment(s): recalled from previous admission Smoking Status: Never smoker
[2024-09-19 15:23] LABS: Triglycerides 655.00 mg/dL (0.00-149.00)
--- NOTE | 2024-09-19 16:18 | P.PN ---
Subjective Progress Note Date: 09/19/24 Principal diagnosis: Reason for follow-up is sepsis and pneumonia/candidemia Patient is a 49-year-old male with a past medical history significant for CVA TIA DVT pneumonia history of complicated Crohn's disease in this patient who did have multiple abdominal surgeries patient also have a tracheostomy has been brought to the hospital with Generalized weakness did have a fever concerning for pneumonia on today's evaluation that is 09/20/2023, patient did have a temperature of 97.4 F this afternoon the patient remains to be debated on the ventilator trach FiO2 is currently 50% the patient requiring low-dose pressor support no other changes reported by the nursing staff. The patient white count normalized to 7.78 creatinine 1.13 Vanco trough of 49.3 Objective - Vital Signs Vital signs: Vital Signs Temp 97.4 F L 09/19/24 08:00 Pulse 75 09/19/24 16:04 Resp 36 H 09/19/24 15:00 BP 114/42 09/17/24 10:15 Pulse Ox 94 L 09/19/24 15:00 FiO2 50 09/19/24 16:14 Intake & Output 09/18/24 09/19/24 09/19/24 18:59 06:59 18:59 Intake Total 2235.450 2391.520 1721.521 Output Total 1225 205 120 Balance 5489.843 0126.520 1601.521 Weight 111.2 kg Intake: IV 1405 1795 944 0.9 75 55 65 Anidulafungin 200 mg In 200 Sodium Chloride 0.9% 200 ml @ 84 mls/hr IVPB ONCE ONE Rx#:[id number] Ceftolozane/Tazobactam 3 200 100 gm In Sodium Chloride 0.9 % 100 ml @ 100 mls/hr IV Q8HR ANNIE Rx#:[id number] Furosemide 100 mg In 160 Sodium Chloride 0.9% 90 ml @ 20 MG/HR 20 mls/hr IV .Q5H ANNIE Rx#:[id number] Lasix gtt 20 240 180 Pressure Bag 24 TPN 750 900 675 Vancomycin 1,500 mg In 500 Sodium Chloride 0.9% 500 ml 500 ml @ 167 mls/hr IVPB Q16H ANNIE Rx#: [id number] Intake, IV Titration 830.450 596.520 777.521 Amount Anidulafungin 100 mg In 100 Sodium Chloride 0.9% 100 ml @ 84 mls/hr IVPB DAILY ANNIE Rx#:[id number] Ceftolozane/Tazobactam 3 100 100 gm In Sodium Chloride 0.9 % 100 ml @ 100 mls/hr IV Q8HR ANNIE Rx#:[id number] Furosemide 100 mg In 157.333 183 253.001 Sodium Chloride 0.9% 90 ml @ 20 MG/HR 20 mls/hr IV .Q5H ANNIE Rx#:[id number] Norepinephrine 32 mg In 79.771 65.041 42.877 Sodium Chloride 0.9% 218 ml @ 0.03 MCG/KG/MIN 1. 516 mls/hr IV .Q24H ANNIE Rx#:[id number] Norepinephrine 8 mg In 149.755 Sodium Chloride 0.9% 250 ml @ 0.03 MCG/KG/MIN 5. 003 mls/hr IV .Q24H ANNIE Rx#:[id number] Vasopressin 20 unit In 64.643 Sodium Chloride 0.9% 50 ml @ 0.03 UNITS/MIN 4.59 mls/hr IV .Q11H7M ANNIE Rx# :[id number] propofoL 1,000 mg In 278.948 348.479 281.643 Empty Bag 1 bag @ 50 MCG/ KG/MIN 32.34 mls/hr IV . Q3H6M ANNIE Rx#:[id number] Output: Drainage 1000 Medial Abdomen 1000 Urine 225 205 120 Other: Voiding Method Indwelling Catheter Indwelling Catheter Indwelling Catheter ABP, PAP, CO, CI - Last Documented Arterial Blood Pressure 127/48 - Exam GENERAL DESCRIPTION: Middle-age male intubated on the vent RESPIRATORY SYSTEM: Unlabored breathing , decreased breath sounds at bases HEART: S1 S2 regular rate and rhythm , ABDOMEN: Soft , no tenderness EXTREMITIES: Swelling to the leg - Labs CBC & Chem 7: 09/19/24 04:45 09/19/24 04:45 Labs: Abnormal Lab Results - Last 24 Hours (Table) 09/19/24 09/19/24 09/19/24 Range/Units 04:45 04:45 04:54 RBC 2.67 L (4.40-5.60) 10*6/uL Hgb 7.1 L (13.0-17.0) g/dL Hct 23.1 L (39.6-50.0) % MCH 26.6 L (27.0-32.0) pg MCHC 30.7 L (32.0-37.0) g/dL Plt Count 128 L (140-440) 10*3/uL MPV 13.4 H (9.5-12.2) fL Lymphocytes # 0.87 L (0.90-5.00) 10*3/uL Eosinophils # 0.00 L (0.04-0.35) 10*3/uL Immature Plt Fraction 7.6 H (1.1-6.1) % ABG pH 7.28 L (7.35-7.45) ABG pCO2 52 H (35-45) mmHg ABG pO2 142 H (83-108) mmHg ABG Total CO2 26 H (19-24) mmol/L ABG O2 Saturation 99.4 H (94-97) % Hemoglobin 7.1 L (13.0-17.5) gm/dL Potassium 5.2 H (3.5-5.1) mmol/L Chloride 108 H (98-107) mmol/L BUN 67 H (9-20) mg/dL Glucose 326 H (74-99) mg/dL POC Glucose (mg/dL) (70-110) mg/dL Calcium 7.6 L (8.4-10.2) mg/dL Phosphorus 5.9 H (2.5-4.5) mg/dL Magnesium 2.8 H (1.6-2.3) mg/dL Triglycerides 655.00 H (0.00-149.00) mg/dL Vancomycin Trough ug/mL 09/19/24 09/19/24 09/19/24 Range/Units 08:30 11:46 11:50 RBC (4.40-5.60) 10*6/uL Hgb (13.0-17.0) g/dL Hct (39.6-50.0) % MCH (27.0-32.0) pg MCHC (32.0-37.0) g/dL Plt Count (140-440) 10*3/uL MPV (9.5-12.2) fL Lymphocytes # (0.90-5.00) 10*3/uL Eosinophils # (0.04-0.35) 10*3/uL Immature Plt Fraction (1.1-6.1) % ABG pH (7.35-7.45) ABG pCO2 (35-45) mmHg ABG pO2 (83-108) mmHg ABG Total CO2 (19-24) mmol/L ABG O2 Saturation (94-97) % Hemoglobin (13.0-17.5) gm/dL Potassium (3.5-5.1) mmol/L Chloride (98-107) mmol/L BUN (9-20) mg/dL Glucose (74-99) mg/dL POC Glucose (mg/dL) 358 H 347 H (70-110) mg/dL Calcium (8.4-10.2) mg/dL Phosphorus (2.5-4.5) mg/dL Magnesium (1.6-2.3) mg/dL Triglycerides (0.00-149.00) mg/dL Vancomycin Trough 49.3 H* ug/mL Assessment and Plan (1) Pneumonia Current Visit: Yes Status: Acute Code(s): J18.9 - PNEUMONIA, UNSPECIFIED ORGANISM SNOMED Code(s): 660069035 (2) Sepsis Current Visit: Yes Status: Acute Code(s): A41.9 - SEPSIS, UNSPECIFIED ORGANISM SNOMED Code(s): 52976818 (3) Candidemia Current Visit: Yes Status: Acute Code(s): B37.7 - CANDIDAL SEPSIS SNOMED Code(s): 873123189 Plan: 1patient is a hospital with sepsis in this patient who did have fever tachycardia elevated lactic acid upon meeting criteria for SIRS/sepsis source likely pneumonia 2-patient is status post bronchoscopy lavage results currently growing Pseudomonas that is resistant to Avycaz and corynebacterium, sensitivity on corynebacterium is pending 3-patient now with evidence of candidemia source is likely left chest wall PICC line which has been discontinued has been sent for the culture central line placed by open winder, 4patient did have resolution of his fever the patient white count normalized we will continue patient on Eraxis noticed to have elevated vancomycin trough we will go ahead and discontinue vancomycin as he already received adequate course for his underlying pneumonia Dictation was produced using [employer] dictation software. please excuse any grammatical, word or spelling errors. Time with Patient: Less than 30
[2024-09-19 17:43] LABS: Glucose,Whole Blood 323 mg/dL (70-110)
[2024-09-19] MEDS: HYDROCORTISONE SUCCINATE 100 MG/2 ML VIAL IV SCH (20:16)
[2024-09-19 23:20] LABS: Glucose,Whole Blood 298 mg/dL (70-110)
[2024-09-20 03:45] LABS: African American GFR (CKD) 63 (>60 ml/min/1.73 sqM); Anion Gap 14 mmol/L; Blood Urea Nitrogen 83 mg/dL (9-20); Calcium 7.8 mg/dL (8.4-10.2); Carbon Dioxide 20 mmol/L (22-30); Chloride 105 mmol/L (98-107); Glucose 281 mg/dL (74-99); Magnesium 2.7 mg/dL (1.6-2.3); Non-African American GFR(CKD) 55 (>60 ml/min/1.73 sqM); Potassium 5.0 mmol/L (3.5-5.1); Sodium 139 mmol/L (137-145)
[2024-09-20 06:34] LABS: Glucose,Whole Blood 300 mg/dL (70-110)
[2024-09-20 06:58] LABS: Basophils # (A) 0.00 10*3/uL (0.00-0.10); Basophils % (A) 0.0 %; Eosinophils # (A) 0.00 10*3/uL (0.04-0.35); Eosinophils % (A) 0.0 %; Immature Platelet Fraction 7.9 % (1.1-6.1); Lymphocytes # (A) 0.66 10*3/uL (0.90-5.00); Lymphocytes % (A) 10.1 %; MCH 27.0 pg (27.0-32.0); MCHC 31.7 g/dL (32.0-37.0); MCV 85.4 fL (80.0-97.0); Monocytes # (A) 0.34 10*3/uL (0.20-1.00); Monocytes % (A) 5.2 %; Neutrophils # (A) 5.52 10*3/uL (1.80-7.70); Neutrophils % (A) 84.4 %; Platelet Count 105 10*3/uL (140-440); RBC 2.33 10*6/uL (4.40-5.60); RDW 20.6 % (11.5-14.5); WBC 6.54 10*3/uL (4.50-10.00)
[2024-09-20 07:04] LABS: HCT 19.9 % (39.6-50.0); HGB 6.3 g/dL (13.0-17.0)
--- NOTE | 2024-09-20 07:10 | XR ---
EXAMINATION TYPE: XR chest 1V portable DATE OF EXAM: 09/20/2024 5:51 AM COMPARISON: Chest radiograph from one day prior. CLINICAL INDICATION: Male, 49 years old with history of intubated; [facility] TECHNIQUE: XR chest 1V portable Frontal view of the chest. FINDINGS: Lungs/Pleura: No evidence of focal consolidation or pneumothorax. Blunting of the costophrenic angles is present. Pulmonary vascularity: Unremarkable. Heart/mediastinum: Cardiomediastinal silhouette is unremarkable. Musculoskeletal: No acute osseous pathology. Other findings: None Lines/Tubes: Tracheostomy cannula tip projecting over the trachea. Right-sided PICC line with distal tip at the cavoatrial junction. IMPRESSION: 1. Similar Multifocal airspace opacities concerning for pneumonia. 2. Small bilateral pleural effusions. [facility], , 09/20/2024 7:08 AM
[2024-09-20] MEDS: ALBUMIN HUMAN 25% 50 ML in EMPTY BAG 1 BAG IVPB SCH (08:36)
[2024-09-20] MEDS: NOREPINEPHRINE 8 MG in SODIUM CHLORIDE 0.9% 250 ML IV SCH (08:39)
[2024-09-20] MEDS: CHLORHEXIDINE GLUCONATE 15 ML CUP MUCOUS MEM SCH (09:24)
--- NOTE | 2024-09-20 09:59 | P.NPCON ---
History of Present Illness - Reason for Consult acute renal failure - History of Present Illness Reason for consultation: Acute kidney injury History of present illness: Patient is a 49-year-old male seen in renal consultation for acute kidney injury. Patient was admitted to the hospital on August 29, 2024 due to worsening shortness of breath. Patient has a tracheostomy and is ventilator dependent at home. Patient was noted to have pneumonia. Patient's sputum culture was positive for Pseudomonas. Bronchial washings were positive for Pseudomonas and Corynebacterium. Additionally patient had blood cultures done on September 15, 2024 which were positive for Bella. He is currently maintained on antibiotics as well as antifungals. He also receives TPN and is currently running at 75 cc an hour. Hemoglobin was noted to be low at 6.3 and is currently receiving a unit of blood. He is also receiving IV albumin. Patient has been receiving Lasix drip for the last 2 days and urine output has been 5 to 10 cc an hour. Creatinine was 0.46 on admission and is up to 1.49 today. He has also required vasopressor support this admission but is currently off Levophed. Vital signs are stable. General: No acute distress. HEENT: Tracheostomy noted. LUNGS: Scattered rhonchi. HEART: Rate and Rhythm are regular. ABDOMEN: Soft, no distention. EXTREMITITES: 2+ edema left lower extremity. Right BKA. Past Medical History Past Medical History: CVA/TIA, Deep Vein Thrombosis (DVT), Pneumonia Additional Past Medical History / Comment(s): Hx CVA in 2012, DVT R arm, Crohns. colostomy Bag placed in 09/2021. History of Any Multi-Drug Resistant Organisms: MRSA, Other MDRO Date of last positivie culture/infection: 09/07/24-Other MDRO; 12/14/23-MRSA MDRO Source:: Other MDRO - sputum, BAL; MRSA- nasal Past Surgical History: Bowel Resection, Cholecystectomy, Orthopedic Surgery Additional Past Surgical History / Comment(s): R BKA, trach with chronic home vent Past Anesthesia/Blood Transfusion Reactions: No Reported Reaction Additional Past Anesthesia/Blood Transfusion Reaction / Comment(s): recalled from previous admission Smoking Status: Never smoker - Past Family History Father Additional Family Medical History / Comment(s): DAD IN HIS TWENTIES - CAUSE UNKNOWN. Mother Family Medical History: Diabetes Mellitus Brother(s) Family Medical History: Cancer Additional Family Medical History / Comment(s): Kidney cancer as a baby. Medications and Allergies Home Medications Medication Instructions Recorded Confirmed Type Pantoprazole [Protonix] 40 mg PO BID 07/07/22 08/29/24 History Enoxaparin [Lovenox] 100 mg SQ Q12H 06/19/24 08/29/24 History Folic Acid 1 mg PO DAILY 06/19/24 08/29/24 History Loperamide HCl [Imodium A-D] 4 mg PO Q6H 06/19/24 08/29/24 History Thiamine [Vitamin B-1] 100 mg PO DAILY 06/19/24 08/29/24 History busPIRone HCl [Buspar] 15 mg PO BID 30 Days #60 tab 07/14/24 08/29/24 Rx HYDROcodone/APAP 5-325MG [[place] 1 tab PO Q6H PRN 07/17/24 08/29/24 History 5-325] Ipratropium-Albuterol Nebulize 3 ml INHALATION RT-QID #100 each 08/04/24 08/29/24 Rx [Duoneb 0.5 mg-3 mg/3 ml Soln] Ipratropium-Albuterol Nebulize 3 ml INHALATION RT-QID PRN each 08/04/24 08/29/24 Rx [Duoneb 0.5 mg-3 mg/3 ml Soln] Scopolamine 1 mg/72 Hr Patch 1 patch TRANSDERM Q72H #30 patch 08/04/24 08/29/24 Rx [TransDerm Scop] Amoxic-Pot Clav 875-125Mg 1 tab PO BID 08/19/24 08/29/24 History [Augmentin 875-125] Cholecalciferol (Vitamin D3) 1,250 mcg PO MOTH 08/29/24 08/29/24 History [Vitamin D3 (1250 Mcg = 50,000 Iu)] Cholecalciferol [Vitamin D3 (125 125 mcg PO DAILY 08/29/24 08/29/24 History Mcg = 5000 Iu)] Furosemide [Lasix] 20 mg PO DAILY 08/29/24 08/29/24 History Allergies Allergy/AdvReac Type Severity Reaction Status Date / Time piperacillin [From Zosyn] Allergy Rash/Hives Verified 08/29/24 08:45 tazobactam [From Zosyn] Allergy Rash/Hives Verified 08/29/24 08:45 Physical Exam Vitals: Vital Signs Temp Pulse Resp BP Pulse Ox FiO2 09/20/24 09:20 69 09/20/24 09:09 50 09/20/24 09:08 66 09/20/24 09:04 96.2 F L 61 36 H 86/46 09/20/24 07:00 66 36 H 96/52 98 09/20/24 06:00 60 36 H 118/64 99 09/20/24 05:27 50 09/20/24 05:00 63 36 H 107/56 97 09/20/24 04:00 97.4 F L 61 36 H 109/53 97 50 09/20/24 03:55 50 09/20/24 03:00 59 L 36 H 108/53 97 09/20/24 02:00 61 36 H 105/50 97 09/20/24 01:00 64 36 H 111/58 97 09/20/24 00:16 50 09/20/24 00:13 63 36 H 96 09/20/24 00:00 97.5 F L 63 36 H 108/51 96 50 09/19/24 23:00 68 36 H 127/61 97 09/19/24 22:00 70 36 H 114/60 97 09/19/24 21:00 77 36 H 116/56 98 09/19/24 20:44 74 09/19/24 20:34 74 09/19/24 20:24 50 09/19/24 20:00 97.5 F L 68 36 H 119/64 99 50 09/19/24 19:58 50 09/19/24 19:00 73 36 H 120/63 98 09/19/24 18:45 74 36 H 126/62 98 09/19/24 18:30 68 36 H 131/68 98 09/19/24 18:15 71 36 H 137/71 98 09/19/24 18:00 69 36 H 128/69 98 09/19/24 17:45 71 36 H 128/66 98 09/19/24 17:30 73 36 H 126/66 92 L 09/19/24 17:15 62 36 H 126/68 95 09/19/24 17:00 64 36 H 95 09/19/24 16:45 68 36 H 95 09/19/24 16:30 71 36 H 94 L 09/19/24 16:16 86 09/19/24 16:15 71 36 H 96 09/19/24 16:14 50 09/19/24 16:04 75 09/19/24 16:00 97.3 F L 71 36 H 95 50 09/19/24 15:45 73 36 H 95 09/19/24 15:30 70 36 H 95 09/19/24 15:15 75 36 H 94 L 09/19/24 15:00 74 36 H 94 L 09/19/24 14:45 72 36 H 94 L 09/19/24 14:30 77 36 H 95 09/19/24 14:15 74 36 H 95 09/19/24 14:00 76 36 H 95 09/19/24 13:45 75 36 H 96 09/19/24 13:30 77 36 H 96 09/19/24 13:15 77 36 H 96 09/19/24 13:00 78 36 H 96 09/19/24 12:45 68 36 H 96 09/19/24 12:35 72 09/19/24 12:30 79 36 H 94 L 50 09/19/24 12:26 79 09/19/24 12:15 59 L 36 H 94 L 09/19/24 12:00 53 L 36 H 95 50 09/19/24 11:45 48 L 36 H 96 09/19/24 11:30 51 L 36 H 95 09/19/24 11:15 59 L 36 H 94 L 09/19/24 11:00 68 36 H 93 L 09/19/24 10:45 65 36 H 94 L 09/19/24 10:30 61 36 H 94 L 09/19/24 10:15 67 36 H 95 09/19/24 10:00 71 36 H 95 Intake and Output 09/19/24 09/20/24 09/20/24 22:59 06:59 14:59 Intake Total 9342.034 3803.360 199.63 Output Total 690 70 605 Balance 817.992 2227.360 -405.37 Intake: IV 964 864 108 0.9 80 80 10 Ceftolozane/Tazobactam 3 100 gm In Sodium Chloride 0.9 % 100 ml @ 100 mls/hr IV Q8HR ANNIE Rx#:[id number] Lasix gtt 160 160 20 Pressure Bag 24 24 3 TPN 600 600 75 Intake, IV Titration 459.712 387.360 91.63 Amount Furosemide 100 mg In 178.667 187.667 Sodium Chloride 0.9% 90 ml @ 20 MG/HR 20 mls/hr IV .Q5H ANNIE Rx#:[id number] Norepinephrine 32 mg In 31.742 15.894 Sodium Chloride 0.9% 218 ml @ 0.03 MCG/KG/MIN 1. 516 mls/hr IV .Q24H ANNIE Rx#:[id number] propofoL 1,000 mg In 249.303 183.799 91.63 Empty Bag 1 bag @ 50 MCG/ KG/MIN 32.34 mls/hr IV . Q3H6M ANNIE Rx#:[id number] Blood Product 0 Unit 0 Output: Drainage 600 Medial Abdomen 600 Urine 90 70 5 Stool 600 Other: Voiding Method Indwelling Catheter Indwelling Catheter Weight 112.2 kg Results - Lab Results Most recent lab results ABG pH 7.28 (7.35-7.45) L 09/19/24 04:54 ABG pCO2 52 mmHg (35-45) H 09/19/24 04:54 ABG pO2 142 mmHg (83-108) H 09/19/24 04:54 ABG HCO3 24 mmol/L (21-25) 09/19/24 04:54 ABG O2 Saturation 99.4 % (94-97) H 09/19/24 04:54 Calcium 7.8 mg/dL (8.4-10.2) L 09/20/24 02:53 Phosphorus 5.4 mg/dL (2.5-4.5) H 09/20/24 02:53 Magnesium 2.7 mg/dL (1.6-2.3) H 09/20/24 02:53 09/20/24 02:53 09/20/24 02:53 Assessment and Plan Plan: Assessment: 1. Acute kidney injury secondary to ATN secondary to septic shock. Also c oncern for vancomycin toxicity. Vancomycin level 45.5 today. Creatinine 1.49 today. Oliguric. 2. Septic shock secondary to pneumonia and fungemia. Currently off Levophed. 3. Acute blood loss anemia with hemoglobin of 6.3 today. Currently receiving a unit of blood. 4. Volume overload. 5. Chronic hypoxic and hypercapnic respiratory failure, home ventilator dependent. 6. History of cardiac arrest. 8. Status post right BKA. Plan: Stop Lasix drip. Currently receiving albumin and also a unit of blood. 80 mg IV Lasix x 1 dose after blood transfusion completed. Vancomycin discontinued. Avoid nephrotoxins. Continue to monitor renal function and urine output. Thank you for the consultation. I will continue to follow the patient with you during his hospital stay.
[2024-09-20] MEDS: FUROSEMIDE 10 MG/ML 10 ML VIAL IV STA (11:20)
[2024-09-20 11:35] LABS: Glucose,Whole Blood 277 mg/dL (70-110)
--- NOTE | 2024-09-20 11:35 | P.PN ---
Subjective Progress Note Date: 09/20/24 Principal diagnosis: Acute on chronic hypoxic respiratory failure secondary to bilateral pneumonia secondary to multidrug resistant Pseudomonas aeruginosa., And secondary to fungemia This is a 49-year-old white male familiar to my service, history of paraplegia, home vent dependent, history of tracheostomy, patient had multiple admissions to the ICU for recurrent episodes of pneumonia and respiratory failure requiring ventilatory support. On his last admission patient was eventually discharged home on a home ventilator, and this was back on 08/04/2024. Patient was disch arged home with a PICC line, patient was in the ER yesterday on 08/28 for abnormal labs mostly low potassium and low sodium discharged home however he came back today complaining of shortness of breath, has been ventilator dependent all along. Chest x-ray showed basically bibasilar opacities/atelect asis, doubt pneumonia, the findings in the left lower lobe are chronic. Patient did have previous history of pneumonia involving the left lower lobe and he had multiple bronchoscopies in the past. Bronchial cultures and sputum cultures have been positive in the past for mostly Pseudomonas aeruginosa. Patient was seen in the ER today, and he is already on cefepime for empiric coverage for potential left lower lobe pneumonia, patient had abnormal electrolytes with relatively low sodium low potassium, no leukocytosis, normal renal profile, blood pressure was soft, and he was given fluid boluses. Lactic acid was 2.1, D-dimer is normal, patient was admitted, and this consult was initiated. 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 09/10/2024, patient is awake and alert and communicating. Continues to have on and off episodes of shortness of breath while being on a mechanical ventilator. Oxygenation is borderline and the patient's pulse ox remains low. Unable to obtain any blood gases as the patient has declined arterial blood draws. He is on assist-control mode rate of 20, tidal volume of 450, FiO2 of 70% with a PEEP of 10. Remains on TPN at rate of 35 cc an hour and lactated Ringer at rate of 50 cc an hour. Fluid balance is +2.6 L over the past 24 hours.the white cell count is 6.3, hemoglobin is at 7.4, platelet count is a 73 and the patient remains on therapeutic dose of Lovenox. The patient's sodium levels at 143, K is at 3.3, bicarb is at 40 with a BUN of 21 and a creatinine of 0.8. Blood sugar is 140. The most recent lavage from the right lower lobe was positive for Pseudomonas aeruginosa and corynebacterium. The patient remains on a combination of ceftazidime antibacterial combination, tobramycin and IV vancomycin. Output from ileostomy is in order of 800 cc over the past 8 hours. Remains on IV Lasix. Chest x-ray is unchanged and it shows bilateral pulmonary infiltrates, diffuse increased interstitial lung markings, lines and catheters are in place, tracheostomy tube is in place. 09/11/2024, the patient is stable, awake and alert and communicating. Remains on TPN for nutritional support with rate of 75 cc an hour. Remains on the same mechanical ventilator settings and the patient remains on assist-control mode at rate of 20, tidal volume of 450, FiO2 of 60% with a PEEP of 8. Fluid balance is -50 cc over the past 24 hours and the patient remains on IV Lasix 20 mg every 8 hours. The biotic coverage remains unchanged and the patient remains on a combination of ceftazidime IV Bactrim, tobramycin and vancomycin. The white cell count is at 4.7 with a hemoglobin of 7.1 and a platelet count of 89. BUN is 20 with a creatinine of 0.25. Sodium levels at 142. Serum iron levels at 16. Vancomycin trough is at 17. Follow-up chest x-ray from today shows stable bilateral pulmonary filtrates and pleural effusions bilaterally. Tracheostomy tube remains in good location. The patient continues to have high output through the ileostomy. Currently afebrile. No cardiac arrhythmias have been noted. 09/12/2024, patient is resting comfortably in bed. Remains on a mechanical ventilator. Unable to wean. Chest x-ray still showing bilateral pulmonary filtrates consistent with pneumonia. The patient is on assist-control mode at rate of 20, tidal volume of 450, FiO2 of 50% and a PEEP of 8. Remains negative fluid balance as the patient is being diuresed with IV Lasix. Fluid balance is -1 L over the past 24 hours. Remains on Lasix 20 mg IV push every 8 hours. Hemoglobin from this morning was 5.8. Repeat hemoglobin came back at 7.4. Platelet counts are stable. No evidence of any GI bleeding. Remains on Lovenox therapeutic dose. Remains on TPN at rate of 75 cc an hour. White cell count is at 5, platelet count is at 93, BUN is 25 with a creatinine 0.4. Sodium levels at 144 and a potassium level is at 3.6. Ileostomy still functioning. Remains on broad-spectrum antibiotics. Remains on ceftolozane/tazobactam. Remains on vancomycin. Remains on stress dose hydrocortisone. 09/13/2024, the patient is being seen for a follow-up. No change in his condition over the past 24 hours. Remains on a mechanical ventilator. Awake and alert and communicating. Started on fentanyl patch and his pain is under better control and the patient is using fentanyl patch 75 mcg every 72 hours. Remains assist-control mechanical ventilation at rate of 20, tidal volume of 450, FiO2 50% with a PEEP of 8. Chest x-ray from today shows stable bilateral pulmonary infiltrates, no significant change compared to yesterday and the tracheostomy tube remains in place. The patient continues to have multifocal airspace disease. Fluid balance is +30 cc over the past 24 hours. TPN is running at a rate of 75 cc an hour. Afebrile. Hemoglobin in this morning was at 5.8. Recheck was 6.1. The platelet count is 817. Sodium is at 148, potassium 3.2, BUN 26 with a creatinine of 0.44. Serum bicarb is at 38. The patient has a triglyceride level of 152. Remains on ceftolozane tazobactam and vancomycin. Seen today on 09/14/24, patient remains intubated, mechanically ventilated, arousable, follows simple instructions, he is on assist-control rate of 20 tidal volume 450 FiO2 50% and PEEP of 6 patient is spiking temps he had a temp as high as 102 remains on Zerbaxa and vancomycin his hemoglobin is low today 6.9 will give a unit of packed RBCs still requiring norepinephrine at 0.12 mcg/kg/min he is also on TPN at 75 cc/h. Not much of a change noted in his overall clinical picture, patient remains quite ill and septic. Labs today show WBC of 6.4 hemoglobin 6.9 electrolytes are normal sodium is 147 renal profile is normal, chest x-ray continues to show multifocal airspace opacities and small bilateral pleural effusions. Seen today on 09/15/2024, patient was seen in consultation, remains in the ICU intubated and mechanically ventilated, assist-control rate of 20 tidal volume 450 FiO2 60% PEEP of 8 no ABG done today. However his chest x-ray continues to show significant bibasilar infiltrates right more so than left. Patient is still requiring norepinephrine at 0.08 mcg/kg/min. Sputum cultures were noted positive for Pseudomonas and corynebacterium patient remains on Zerbaxa and vancomycin. Looking back at the clinical history of this patient and his previous admissions and previous notes, I believe we have not making any progress or any significant improvement since admission. Today I had a chance to discuss CODE STATUS again with the patient and explained to him that his overall picture does not seem to be very promising, I also discussed with the patient the option of hospice, patient is undecided at this point, he will think about it. WBC count is 7.07 hemoglobin 7.5 patient did receive a unit of packed RBCs yesterday for hemoglobin of 6.9. Electrolytes are normal renal profile is normal, chest x-ray continues to show infiltrates mostly in the right lower lobe more so than the left lower lobe. Patient was seen today on 09/16/2024, patient is basically about the same. Hardly any improvement noted in the last few weeks since admission, patient remains intubated, mechanically ventilated, same ventilator settings, assist-control rate of 20 tidal volume 450 FiO2 60% and PEEP of 8 ABG was not done today, no easy access, attempted to place arterial lines in this patient, but could not pass a wire although the arteries including femoral artery and left brachial artery were easily cannulated. No further attempts made for arterial access. Patient remains on norepinephrine at 0.13 mcg/kg/min still on TPN at 75 cc/h still on Zerbaxa and vancomycin chest x-ray showed worsening today of bilateral infiltrates possibly some component of fluid overload and I recommended Lasix 20 mg IV push twice daily. Patient seems to be quite swollen and edematous. WBC count is 5.4 hemoglobin 7.6 electrolytes showed sodium of 146 potassium 4.1 BUN 20 creatinine 0.47 Patient was seen today on 09/17/2024, patient seems to be deteriorating steadily over the last 24 hours, he is developing profound hypotension requiring pressors in the form of Levophed at 0.4 mcg/kg/min he is also on vasopressin at 0.04 units/min he is on TPN at 75 cc/h hemoglobin is noted to be low at 6.9, patient has positive yeast in the blood/fungemia he is on fluconazole, this is being addressed by infectious disease on the case. Earlier ABG showed a pO2 of 77 pCO2 88 pH of 7.13, Vent settings were adjusted with increasing the rate to 36. He is now on tidal volume of 350 FiO2 100% PEEP is 10 and rate is 36. Another ABG is pending. But clearly patient is taking a downhill clinical course. Patient is quite septic, I will likely change his central line, and place a new central line in this patient today and remove the old central line/PICC line. Patient will receive a unit of packed RBCs for hemoglobin of 6.9. Considering the change in his overall clinical status, discussed his condition with son, would like to keep his dad as a full code, he is very well aware of the poor prognostic picture and how ill his dad is. Would like to keep him a full code. WBC count today is 20.03 hemoglobin 8.5, basic metabolic profile is normal BUN is 25 creatinine 0.4 total protein is 6.9 albumin is 1.9. Patient was seen today on 09/18/24, remains in the ICU, intubated and mechanically ventilated. Patient is still requiring assist-control rate of maximal ventilatory support with rate of 36 tidal volume increased today up to 400 FiO2 decreased from 100% to 70% PEEP remains at 12. Earlier ABG before changes were made at the FiO2 had been on tidal volume showed a pO2 of 77 pCO2 68 pH of 7.20. Patient is still requiring norepinephrine and I have been titrating the norepinephrine earlier this morning he is down to 0.18 from 0.46 yesterday micrograms per kilo per minute vasopressin is still at 0.04 units/min patient is on propofol at 50 mcg/kg/min Lasix drip at 20 mg/h and TPN at 75 cc/h. I am also treating the patient with vancomycin, Zerbaxa, and Eraxis was added to replace fluconazole yesterday by infectious disease specially with his positive blood cultures for Bella. Urine output is improving with the Lasix drip, he did not improve much with 1 dose of Lasix 60 mg IV push. Remains on Solu-Cortef at 100 mg IV push every 8 hours patient is in positive fluid balance about 6 L hence I decided to go with Lasix drip today. Labs today showed slight improvement in his WBC count down to 14.9 hemoglobin is 7.6, electrolytes are abnormal with a potassium of 6.1 BUN is 45 creatinine 0.82 chest x-ray continues show bilateral interstitial edema/infiltrates, could be cardiogenic or noncardiogenic pulmonary edema I believe it is mostly cardiogenic/related to fluid overload as he received significant fluids yesterday for low blood pressure. And he was not making much urine in the last 24 hours. Hence Lasix drip was started today. Patient was seen today on 09/19/2024, remains in the ICU, remains intubated and mechanically ventilated. Patient is on assist-control rate of 36 tidal volume 400 FiO2 65% and PEEP of 12. His ABG showed a pO2 of 142 pCO2 52 pH of 7.28, hence cut down his FiO2 down to 50%. The PEEP at 12. Patient remains hemodynamically unstable, remains on norepinephrine at 0.08 mcg/kg/min, his vasopressin has been discontinued. TPN is at 75 cc/h. Remains on Lasix drip/infusion at 20 mg/h. He is on propofol at 50 mcg/kg/min remains on Solu- Cortef 50 mg every 8, Eraxis, Zerbaxa, vancomycin. Urine output is marginal at about 10 to 20 cc/h in spite of Lasix drip. Lovenox will be resumed today at 80 mg subcu twice daily. Patient is sedated, his overall clinical status is showing slight improvement compared to the clinical status couple of days ago. Chest x-ray continues to show evidence of interstitial edema although the possibility of ARDS is not entirely ruled out considering his overall septic picture. CBC is about the same with WBC of 7.7 hemoglobin 7.1. Platelets are 128,000. Basic metabolic profile is normal potassium is down to 5.2 BUN is 67 creatinine is slightly higher today 1.13. Blood sugar is 358. Patient was seen today on 09/20/2024, remains in the ICU intubated mechanically ventilated. On assist-control rate of 36 tidal volume 400 FiO2 50% PEEP of 12, no ABG done today, however his O2 saturation is in the high 90s about 98%. Patient had a low hemoglobin today and he will need a unit of blood/packed RBCs for low hemoglobin. No active bleeding noted, Hemoccult stools will be done today. Patient remains on Eraxis and Zerbaxa, his vancomycin was discontinued remains on lower dose of Solu-Cortef 50 mg IV push every 12 hours. Continues to have poor urine output and his renal functioning is getting a bit worse. Nephrology was consulted, patient received initially significant amount of fluids for his presentation of sepsis, and he remained oliguric in spite of fluid boluses. Then he was placed on Lasix drip which initially was working fine, now that urine output is rather marginal and spite of Lasix drip at 20 mg an hour. I am recommending a trial of albumin followed by 80 mg of Lasix IV push. 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 Vancomycin has been d iscontinued. Chest x-ray continues to show evidence of interstitial edema. Labs are reviewed his potassium is 5 bicarb is 20 BUN is 83 creatinine 1.49 platelets are 105 hemoglobin 6.3. Objective - Vital Signs Vital signs: Vital Signs Temp 96.1 F L 09/20/24 10:56 Pulse 57 L 09/20/24 11:00 Resp 36 H 09/20/24 11:00 BP 128/65 09/20/24 11:00 Pulse Ox 97 09/20/24 11:00 FiO2 50 09/20/24 09:09 Intake & Output 09/19/24 09/20/24 09/20/24 18:59 06:59 18:59 Intake Total 2259.527 4337.474 1829.63 Output Total 760 110 615 Balance 4823.245 6998.487 597.63 Weight 112.2 kg Intake: IV 1368 1296 611 0.9 95 120 50 Ceftolozane/Tazobactam 3 100 100 gm In Sodium Chloride 0.9 % 100 ml @ 100 mls/hr IV Q8HR COUNTS INCLUDE 234 BEDS AT THE [facility] Rx#:[id number] Lasix gtt 240 240 80 Pressure Bag 33 36 6 TPN 900 900 375 Intake, IV Titration 891.527 648.487 291.63 Amount Anidulafungin 100 mg In 100 100 Sodium Chloride 0.9% 100 ml @ 84 mls/hr IVPB DAILY ANNIE Rx#:[id number] Ceftolozane/Tazobactam 3 100 gm In Sodium Chloride 0.9 % 100 ml @ 100 mls/hr IV Q8HR ANN[facility] Rx#:[id number] Furosemide 100 mg In 253.001 287.667 Sodium Chloride 0.9% 90 ml @ 20 MG/HR 20 mls/hr IV .Q5H ANNIE Rx#:[id number] Norepinephrine 32 mg In 56.883 27.718 Sodium Chloride 0.9% 218 ml @ 0.03 MCG/KG/MIN 1. 516 mls/hr IV .Q24H ANNIE Rx#:[id number] propofoL 1,000 mg In 381.643 333.102 191.63 Empty Bag 1 bag @ 50 MCG/ KG/MIN 32.34 mls/hr IV . Q3H6M ANNIE Rx#:[id number] Blood Product 310 Rc As-1 Unit 310 [id number] Output: Drainage 600 Medial Abdomen 600 Urine 160 110 15 Stool 600 Other: Voiding Method Indwelling Catheter Indwelling Catheter ABP, PAP, CO, CI - Last Documented Arterial Blood Pressure 100/44 - Exam GENERAL EXAM: 49-year-old white male intubated mechanically ventilated patient has a chronic tracheostomy, patient is sedated on propofol. HEAD: Normocephalic. Tracheostomy is intact. EYES: Normal reaction of pupils, equal size. NOSE: Clear with pink turbinates. THROAT: Tracheostomy tube secured in place. NECK: No masses, no JVD. Patient has now a left subclavian central line/triple- lumen catheter which I placed yesterday. CHEST: No chest wall deformity. LUNGS: Continues to have coarse rhonchi bilaterally. CVS: S1 and S2 normal with no audible murmur, regular rhythm. ABDOMEN: Enterocutaneous fistula over the abdominal wall. No hepatosplenomegaly, normal bowel sounds. SKIN: No rashes, patient is quite edematous CENTRAL NERVOUS SYSTEM: Unable to assess, patient is fully sedated EXTREMITIES: Bilateral edema, extensive muscle atrophy. Contractures. There is no peripheral edema. No clubbing, no cyanosis. Peripheral pulses are intact. Right below-knee amputation is noted. - Labs CBC & Chem 7: 09/20/24 02:53 09/20/24 02:53 Labs: Abnormal Lab Results - Last 24 Hours (Table) 09/17/24 09/19/24 09/19/24 Range/Units 05:28 04:45 11:46 RBC (4.40-5.60) 10*6/uL Hgb (13.0-17.0) g/dL Hct (39.6-50.0) % MCHC (32.0-37.0) g/dL Plt Count (140-440) 10*3/uL Lymphocytes # (0.90-5.00) 10*3/uL Eosinophils # (0.04-0.35) 10*3/uL Immature Plt Fraction (1.1-6.1) % Carbon Dioxide (22-30) mmol/L BUN (9-20) mg/dL Creatinine (0.66-1.25) mg/dL Glucose (74-99) mg/dL POC Glucose (mg/dL) 347 H (70-110) mg/dL Calcium (8.4-10.2) mg/dL Phosphorus (2.5-4.5) mg/dL Magnesium (1.6-2.3) mg/dL Triglycerides 655.00 H (0.00-149.00) mg/dL Vancomycin Trough ug/mL Random Vancomycin ug/mL Crossmatch See Detail 09/19/24 09/19/24 09/19/24 Range/Units 11:50 17:41 23:18 RBC (4.40-5.60) 10*6/uL Hgb (13.0-17.0) g/dL Hct (39.6-50.0) % MCHC (32.0-37.0) g/dL Plt Count (140-440) 10*3/uL Lymphocytes # (0.90-5.00) 10*3/uL Eosinophils # (0.04-0.35) 10*3/uL Immature Plt Fraction (1.1-6.1) % Carbon Dioxide (22-30) mmol/L BUN (9-20) mg/dL Creatinine (0.66-1.25) mg/dL Glucose (74-99) mg/dL POC Glucose (mg/dL) 323 H 298 H (70-110) mg/dL Calcium (8.4-10.2) mg/dL Phosphorus (2.5-4.5) mg/dL Magnesium (1.6-2.3) mg/dL Triglycerides (0.00-149.00) mg/dL Vancomycin Trough 49.3 H* ug/mL Random Vancomycin ug/mL Crossmatch 09/20/24 09/20/24 09/20/24 Range/Units 02:49 02:53 02:53 RBC 2.33 L (4.40-5.60) 10*6/uL Hgb 6.3 L* (13.0-17.0) g/dL Hct 19.9 L* (39.6-50.0) % MCHC 31.7 L (32.0-37.0) g/dL Plt Count 105 L (140-440) 10*3/uL Lymphocytes # 0.66 L (0.90-5.00) 10*3/uL Eosinophils # 0.00 L (0.04-0.35) 10*3/uL Immature Plt Fraction 7.9 H (1.1-6.1) % Carbon Dioxide 20 L (22-30) mmol/L BUN 83 H (9-20) mg/dL Creatinine 1.49 H (0.66-1.25) mg/dL Glucose 281 H (74-99) mg/dL POC Glucose (mg/dL) (70-110) mg/dL Calcium 7.8 L (8.4-10.2) mg/dL Phosphorus 5.4 H (2.5-4.5) mg/dL Magnesium 2.7 H (1.6-2.3) mg/dL Triglycerides (0.00-149.00) mg/dL Vancomycin Trough ug/mL Random Vancomycin 45.5 H* ug/mL Crossmatch 09/20/24 Range/Units 06:33 RBC (4.40-5.60) 10*6/uL Hgb (13.0-17.0) g/dL Hct (39.6-50.0) % MCHC (32.0-37.0) g/dL Plt Count (140-440) 10*3/uL Lymphocytes # (0.90-5.00) 10*3/uL Eosinophils # (0.04-0.35) 10*3/uL Immature Plt Fraction (1.1-6.1) % Carbon Dioxide (22-30) mmol/L BUN (9-20) mg/dL Creatinine (0.66-1.25) mg/dL Glucose (74-99) mg/dL POC Glucose (mg/dL) 300 H (70-110) mg/dL Calcium (8.4-10.2) mg/dL Phosphorus (2.5-4.5) mg/dL Magnesium (1.6-2.3) mg/dL Triglycerides (0.00-149.00) mg/dL Vancomycin Trough ug/mL Random Vancomycin ug/mL Crossmatch Microbiology - Last 24 Hours (Table) 09/18/24 09:45 Blood Culture Gram Stain - Preliminary Blood Blood Culture - Preliminary Molecular ID Assessment and Plan Assessment: Impression: Acute on chronic hypoxic respiratory failure still intubated and mechanically ventilated, multifactorial but mostly related to multidrug- resistant Pseudomonas aeruginosa pneumonia., And now he has candidemia/Bella parapsilosis group Septic shock, secondary to pneumonia patient is on Zerbaxa and vancomycin. Candidemia with positive yeast in blood cultures most likely source is his PICC line which I have removed yesterday and I placed a new right subclavian central line. To replace it for now he will eventually need another PICC line in the future. Chronic hypoxic and hypercapnic respiratory failure, patient is ventilator dependent, patient has been recently on home ventilator History of severe tracheal stenosis History of tracheostomy History of recurrent pneumonias involving left lower lobe Tracheobronchomalacia History of DVT History of CVA History of right below-knee amputation History of asystole/cardiac arrest 2021. 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 Patient is maintained mostly on TPN. Bipedal edema with fluid overload hence patient was placed on Lasix. Recommendation: Continue ventilatory support, remains on assist-control mode of mechanical ventilation, rate of 36 tidal volume 400 FiO2 50% and PEEP of 12 no changes made today. Patient required norepinephrine and vasopressin initially, now he is presently off both. He is receiving TPN and is on propofol at 50 mcg/kg/min. Continue Eraxis for his candidemia/fungal sepsis Continue antibiotics for his resistance to Pseudomonas pneumonia, patient is off vancomycin especially with his renal picture. Continue TPN/nutritional support Allie rasmussenip was discontinued placed on Lasix 80 mg IV push x 1 after albumin infusion and after blood transfusion. Continue GI and DVT prophylaxis/Protonix, however because of his drop in his hemoglobin and the patient has some bit of oozing of blood around the tracheos roshan, will hold Lovenox for now temporarily Continue bronchodilators Nephrology was consulted for his acute kidney injury Patient to remain on vancomycin Continue hydrocortisone 50 mg IV push twice daily Remains very critically ill. Critical care time is 33 minutes We will continue to follow Time with Patient: Greater than 30
[2024-09-20 12:42] LABS: HCT 21.2 % (39.6-50.0); MCH 27.6 pg (27.0-32.0); MCHC 32.1 g/dL (32.0-37.0); MCV 86.2 fL (80.0-97.0); Platelet Count 114 10*3/uL (140-440); RBC 2.46 10*6/uL (4.40-5.60); RDW 20.1 % (11.5-14.5); WBC 5.97 10*3/uL (4.50-10.00)
[2024-09-20 12:50] LABS: HGB 6.8 g/dL (13.0-17.0)
--- NOTE | 2024-09-20 16:52 | P.PN ---
Subjective Progress Note Date: 09/20/24 Principal diagnosis: Reason for follow-up is sepsis and pneumonia/candidemia Patient is a 49-year-old male with a past medical history significant for CVA TIA DVT pneumonia history of complicated Crohn's disease in this patient who did have multiple abdominal surgeries patient also have a tracheostomy has been brought to the hospital with Generalized weakness did have a fever concerning for pneumonia on today's evaluation that is 09/20/2024, Patient is afebrile patient is currently intubated on the vent through the trach patient requiring less pressor support as reported by the nursing staff FiO2 is currently at 50%. Patient white count is 5.97 hemoglobin down to 6.8 creatinine 1.49 blood culture from 09/18/2024 also positive for yeast Objective - Vital Signs Vital signs: Vital Signs Temp 96.1 F L 09/20/24 12:00 Pulse 64 09/20/24 12:30 Resp 36 H 09/20/24 12:30 BP 115/67 09/20/24 12:30 Pulse Ox 96 09/20/24 12:30 FiO2 50 09/20/24 12:00 Intake & Output 09/19/24 09/20/24 09/20/24 18:59 06:59 18:59 Intake Total 2259.527 8969.524 6149.264 Output Total 760 110 625 Balance 8417.687 9800.487 683.264 Weight 112.2 kg Intake: IV 1368 1296 699 0.9 95 120 60 Ceftolozane/Tazobactam 3 100 100 gm In Sodium Chloride 0.9 % 100 ml @ 100 mls/hr IV Q8HR ANNIE Rx#:[id number] Lasix gtt 240 240 80 Pressure Bag 33 36 9 TPN 900 900 450 Intake, IV Titration 891.527 648.487 299.264 Amount Anidulafungin 100 mg In 100 100 Sodium Chloride 0.9% 100 ml @ 84 mls/hr IVPB DAILY ANNIE Rx#:[id number] Ceftolozane/Tazobactam 3 100 gm In Sodium Chloride 0.9 % 100 ml @ 100 mls/hr IV Q8HR ANNIE Rx#:[id number] Furosemide 100 mg In 253.001 287.667 Sodium Chloride 0.9% 90 ml @ 20 MG/HR 20 mls/hr IV .Q5H ANNIE Rx#:[id number] Norepinephrine 32 mg In 56.883 27.718 Sodium Chloride 0.9% 218 ml @ 0.03 MCG/KG/MIN 1. 516 mls/hr IV .Q24H ANNIE Rx#:[id number] Norepinephrine 8 mg In 7.634 Sodium Chloride 0.9% 250 ml @ 0.03 MCG/KG/MIN 6. 513 mls/hr IV .Q24H ANNIE Rx#:[id number] propofoL 1,000 mg In 381.643 333.102 191.63 Empty Bag 1 bag @ 50 MCG/ KG/MIN 32.34 mls/hr IV . Q3H6M ANNIE Rx#:[id number] Blood Product 310 Rc As-1 Unit 310 [id number] Output: Drainage 600 Medial Abdomen 600 Urine 160 110 25 Stool 600 Other: Voiding Method Indwelling Catheter Indwelling Catheter Indwelling Catheter ABP, PAP, CO, CI - Last Documented Arterial Blood Pressure 100/44 - Exam GENERAL DESCRIPTION: Middle-age male intubated on the vent RESPIRATORY SYSTEM: Unlabored breathing , decreased breath sounds at bases HEART: S1 S2 regular rate and rhythm , ABDOMEN: Soft , no tenderness EXTREMITIES: Swelling to the leg - Labs CBC & Chem 7: 09/20/24 12:30 09/20/24 02:53 Labs: Abnormal Lab Results - Last 24 Hours (Table) 09/17/24 09/19/24 09/19/24 Range/Units 05:28 04:45 17:41 RBC (4.40-5.60) 10*6/uL Hgb (13.0-17.0) g/dL Hct (39.6-50.0) % MCHC (32.0-37.0) g/dL Plt Count (140-440) 10*3/uL MPV (9.5-12.2) fL Lymphocytes # (0.90-5.00) 10*3/uL Eosinophils # (0.04-0.35) 10*3/uL Immature Plt Fraction (1.1-6.1) % Carbon Dioxide (22-30) mmol/L BUN (9-20) mg/dL Creatinine (0.66-1.25) mg/dL Glucose (74-99) mg/dL POC Glucose (mg/dL) 323 H (70-110) mg/dL Calcium (8.4-10.2) mg/dL Phosphorus (2.5-4.5) mg/dL Magnesium (1.6-2.3) mg/dL Triglycerides 655.00 H (0.00-149.00) mg/dL Random Vancomycin ug/mL Crossmatch See Detail 09/19/24 09/20/24 09/20/24 Range/Units 23:18 02:49 02:53 RBC (4.40-5.60) 10*6/uL Hgb (13.0-17.0) g/dL Hct (39.6-50.0) % MCHC (32.0-37.0) g/dL Plt Count (140-440) 10*3/uL MPV (9.5-12.2) fL Lymphocytes # (0.90-5.00) 10*3/uL Eosinophils # (0.04-0.35) 10*3/uL Immature Plt Fraction (1.1-6.1) % Carbon Dioxide 20 L (22-30) mmol/L BUN 83 H (9-20) mg/dL Creatinine 1.49 H (0.66-1.25) mg/dL Glucose 281 H (74-99) mg/dL POC Glucose (mg/dL) 298 H (70-110) mg/dL Calcium 7.8 L (8.4-10.2) mg/dL Phosphorus 5.4 H (2.5-4.5) mg/dL Magnesium 2.7 H (1.6-2.3) mg/dL Triglycerides (0.00-149.00) mg/dL Random Vancomycin 45.5 H* ug/mL Crossmatch 09/20/24 09/20/24 09/20/24 Range/Units 02:53 06:33 11:32 RBC 2.33 L (4.40-5.60) 10*6/uL Hgb 6.3 L* (13.0-17.0) g/dL Hct 19.9 L* (39.6-50.0) % MCHC 31.7 L (32.0-37.0) g/dL Plt Count 105 L (140-440) 10*3/uL MPV (9.5-12.2) fL Lymphocytes # 0.66 L (0.90-5.00) 10*3/uL Eosinophils # 0.00 L (0.04-0.35) 10*3/uL Immature Plt Fraction 7.9 H (1.1-6.1) % Carbon Dioxide (22-30) mmol/L BUN (9-20) mg/dL Creatinine (0.66-1.25) mg/dL Glucose (74-99) mg/dL POC Glucose (mg/dL) 300 H 277 H (70-110) mg/dL Calcium (8.4-10.2) mg/dL Phosphorus (2.5-4.5) mg/dL Magnesium (1.6-2.3) mg/dL Triglycerides (0.00-149.00) mg/dL Random Vancomycin ug/mL Crossmatch 09/20/24 Range/Units 12:30 RBC 2.46 L (4.40-5.60) 10*6/uL Hgb 6.8 L* (13.0-17.0) g/dL Hct 21.2 L (39.6-50.0) % MCHC (32.0-37.0) g/dL Plt Count 114 L (140-440) 10*3/uL MPV 12.9 H (9.5-12.2) fL Lymphocytes # (0.90-5.00) 10*3/uL Eosinophils # (0.04-0.35) 10*3/uL Immature Plt Fraction (1.1-6.1) % Carbon Dioxide (22-30) mmol/L BUN (9-20) mg/dL Creatinine (0.66-1.25) mg/dL Glucose (74-99) mg/dL POC Glucose (mg/dL) (70-110) mg/dL Calcium (8.4-10.2) mg/dL Phosphorus (2.5-4.5) mg/dL Magnesium (1.6-2.3) mg/dL Triglycerides (0.00-149.00) mg/dL Random Vancomycin ug/mL Crossmatch Microbiology - Last 24 Hours (Table) 09/18/24 09:45 Blood Culture Gram Stain - Preliminary Blood Blood Culture - Preliminary Molecular ID Assessment and Plan (1) Pneumonia Current Visit: Yes Status: Acute Code(s): J18.9 - PNEUMONIA, UNSPECIFIED ORGANISM SNOMED Code(s): 564484264 (2) Sepsis Current Visit: Yes Status: Acute Code(s): A41.9 - SEPSIS, UNSPECIFIED ORGANISM SNOMED Code(s): 29556808 (3) Candidemia Current Visit: Yes Status: Acute Code(s): B37.7 - CANDIDAL SEPSIS SNOMED Code(s): 604146569 Plan: 1patient is a hospital with sepsis in this patient who did have fever tachycardia elevated lactic acid upon meeting criteria for SIRS/sepsis source likely pneumonia 2-patient is status post bronchoscopy lavage results currently growing Pseudomonas that is resistant to Avycaz and corynebacterium, sensitivity on corynebacterium is pending 3-patient did have candidemia source is likely left chest wall PICC line which has been discontinued has been sent for the culture central line placed by customer support coordinator, blood culture repeat on 09/18/2024 positive blood culture will be repeated to document clearance if he did have persistent candidemia will need further workup to rule out endovascular source patient to continue with Eraxis 4patient will complete treatment Zerbaxa as of today and will be discontinued after midnight dose as per discussion with the pharmacist Dictation was produced using [employer] dictation software. please excuse any grammatical, word or spelling errors. Time with Patient: Less than 30
--- NOTE | 2024-09-20 17:24 | P.PN ---
Progress Note - Text Progress Note Date: 09/20/24 Chief Complaint: Short of breath 49-year-old patient, follows with Dr. Murcia History of paraplegia, home vent at night, tracheostomy multiple admissions to the ICU for recurrent pneumonia. Patient's previous bronchial cultures been positive for Pseudomonas. He was discharged recently on IV cefepime. Also has a history of Crohn's disease with previous colectomy diverting ileostomy. History of DVT for which patient is on subcu Lovenox. Also had drug-resistant MRSA Pseudomonas. Patient currently does not have areas significant trach secretions. He has continues TPN. Has a right BKA. He does have slight movement in the right hand. Able to follow commands by nodding his head. Answering questions. He is scared by his elder son open. I was also the DPOA. August 30: Overnight patient started having more secretions through the tracheostomy. Vancomycin was added. Also blood pressure running low patient was put on Levophed drip. Otherwise sinus rhythm. Patient remains on the ventilator. Will also send off stool for C. difficile. Also patient IV cefepime. Getting TPN. August 31: ICU. Patient had positive fluid balance. Was given IV Lasix earlier. Remains on Levophed. Spiking fevers. Getting TPN. Stool negative for C. difficile. Patient is growing MDRO Pseudomonas aeruginosa. ID is ordered IV Zerbaxa. Which is currently not available. Patient's friend is visiting him in the ICU. Light trach secretion September 01: ICU. On the ventilator. FiO2 45%. PEEP of 5. Continues to have light trach secretions. Sputum cultures again growing Pseudomonas. Zerbaxa was obtained and resumed. Blood pressure running low. On Levophed. Patient's younger son at the bedside. Colostomy working fine. Has been spiking fevers. Cooling blanket. Ice packs. September 02: ICU. Ventilator FiO2 45%. PEEP of 5. Continues to have some trach secretions. IV Zerbaxa IV tobramycin. TPN lipids to continue. Also Levophed. Patient started cooling blankets since yesterday for temperatures. Along with the nurse speech therapy records were reviewed from last few admissions. Patient with multiple MBS and bedside swallow eval. No trouble with swallowing. Patient put on a chopped diet. Thin liquids. Patient did spike a fever of 101.7 earlier today. Low ionized calcium. IV gluconate given. September 03: ICU. On ventilator FiO2 45%. PEEP of 5. Mild trach secretions. Getting IV TPN lipids. IV tobramycin. Zerbaxa was substituted to Avycaz. By ID. No fever per se since yesterday. For blood pressure patient is also on Levophed and vasopressin. September 04: ICU. On ventilator FiO2 45%. PEEP of 5. Clear trach secretions. Getting IV TPN lipids. IV tobramycin. And IV Avycaz. Remains afebrile.. On Levophed and vasopressin. Awake. 09/06/2024 Patient is seen and evaluated in ICU; remains on mechanical ventilator, actually his home ventilator, with settings of volume assist-control, rate 20, tidal volume 450, FiO2 45%, PEEP of 5. - patient has been refusing blood; no ABGs to. He is getting lactated Ringer's at 50 cc an hour, TPN at 65 cc an hour. - patient remains on the same antibiotics. - Labs reviewed which reveal white count 5.21, hemoglobin 7.9, hematocrit 27.5, and platelet count 64,000. Sodium 141, potassium 3.5, chlorides 102, CO2 32, BUN 25, and creatinine 0.35. Glucose is 152. Calcium is 8. Albumin is 2.1. -Chest x-ray is largely unchanged. Critical care managing mechanical ventilation; recommending to add scopolamine patch for increased secretion -Patient remains on Avycaz and tobramycin - Continue with current TPN 09/07 Patient remains in the ICU lethargic. He is s/p tracheostomy Overnight he was more hypoxic they have to increase PEEP to 8. Also has a lot of secretions when needed for secretions suctioning to try to become apneic per Staff. Patient currently receiving Avycaz and tobramycin. on TPN also 09/08 Patient remains in the ICU awake and alert status post tracheostomy. He has contractures of both upper and lower extremities He is complaining from pain in his lungs. He is status post flexible bronchoscopy and bronchoalveolar lavage yesterday. He has previous sputum culture positive for Pseudomonas currently covered with ceftazidime and tobramycin. He is also on Lovenox 90 mg 09/09 Patient still in the ICU on mechanical ventilation via tracheostomy. PEEP is 8.0 as is yesterday Also he spiked little fever to 100.7. IV vancomycin is added to tobramycin and ceftazidime He is getting also bronchoscopy follow-up culture results 09/10 Patient feels clinically the same, he still getting breathing via mechanical ventilation through his tracheostomy with PEEP of 8. Patient feels he is required suctioning through his tracheostomy tube. He denies chest pain or pain anywhere else he can communicate by head signs and gestures. Hemodynamically stable and afebrile hemoglobin 7.4 platelet count 73 Glucose is controlled potassium 3.3 He remains on broad-spectrum antibiotic Rocephin at this time tobramycin and IV vancomycin added yesterday because he had low-grade fever. He is getting TPN. IV fluid Ringer lactate was stopped and patient was started on IV Lasix 20 mg 3 times a day continue with therapeutic dose of Lovenox as well 09/11 Patient remains in the ICU Remains on mechanical ventilation via tracheostomy He status post bronchoalveolar lavage 2 days ago, culture is growing Pseudomonas aeruginosa and corynebacterium Patient remains on broad-spectrum antibiotics with IV vancomycin, tobramycin, ceftazidime On IV Lasix also is on therapeutic dose of Lovenox 90 mg twice daily No IV fluids 09/12 Patient remains in the ICU Clinically close to what he was over the last 2 days still getting oxygen via his tracheostomy He remains on broad-spectrum antibiotic with Ceftin this time and IV vancomycin. Also he is on IV Lasix 20 mg and therapeutic dose of Lovenox. 09/13 Patient remains in the ICU on mechanical ventilation via tracheostomy Patient looks better today, he breathing better Less secretion Fentanyl patch increased 09/14. Patient seen and examined. Patient continues to be on mechanical ventilation via trach mask. Currently on TPN. Currently on IV Zerbaxa and vancomycin 09/15. Patient seen and examined.Vital signs done showed the patient overnight, heart rate 106, blood pressure 107/40, currently on ventilation. Labs reviewed showed WBC 7.27, hemoglobin 7.5, sodium 148 on potassium 4.3, BUN 23, creatinine 0.47 09/16. Patient seen and examined labs reviewed showing WBC 5.45, hemoglobin 9.6, platelet count 131, sodium 146, potassium 4.1, BUN 20, creatinine 0.47. Continue small amount of Levophed. Currently on Zerbaxa and vancomycin. Currently on TPN September 17: ICU. Patient has taken a turn for the worse today. Significant thick white secretions from the trach. Sinus rhythm. Receiving TPN. Patient is on Levophed and vasopressor. Rather high dose. FiO2 100 [address] PEEP of 10. Dr. Ho earlier spoke to the patient/family. Remains full code September 18: ICU. Intubated FiO2 70 PEEP of 12. Sinus rhythm. Drips include IV propofol at 50 and Levophed at 0.13. Patient is off vasopressin. Patient secretions. Family at the bedside. September 19: ICU. Intubated. FiO2 50 and a PEEP of 12. Drips include IV Levophed and propofol. Also started on Lasix drip 10 mg an hour yesterday. Secretions present. September 20: ICU. Intubated. FiO2 50 and a PEEP of 12. Hemoglobin 6.3. Secondary to blood being given. Patient been on and off Levophed. On propofol. Lipids have been held. Continues with TPN. Lasix drip was discontinued. Lovenox has been held because of low hemoglobin. Unable anemia is felt to be combination of regular blood draws and possible element element of hemolysis from all the infection. No dark stool. Family at the bedside Active Medications Albuterol/Ipratropium (Ipratropium-Albuterol 3 Ml Neb) 3 ml INHALATION RT-Q4H PRN PRN Reason: shortness of breath Last Admin: 09/20/24 15:14 Dose: 3 ml Artificial Tears (Artificial Tears-Hypromellose Drops 15 Ml Btl) 1 drops BOTH EYES QID PRN PRN Reason: Dry Eye(s) Last Admin: 09/04/24 12:52 Dose: 1 drops Chlorhexidine Gluconate (Chlorhexidine Gluconate 15 Ml Cup) 15 ml MUCOUS MEM BID [facility] Last Admin: 09/20/24 09:31 Dose: 15 ml Dextrose/Water (Dextrose 50% Syringe 50 Ml) 25 ml IVP PER PROTOCOL PRN; Protocol PRN Reason: Hypoglycemia Dextrose/Water (Dextrose 50% Syringe 50 Ml) 50 ml IVP PER PROTOCOL PRN; Protocol PRN Reason: Hypoglycemia Fentanyl (Fentanyl 100mcg/Hr Patch) 1 patch TRANSDERM Q72H ANNIE; Protocol Last Admin: 09/19/24 09:31 Dose: 1 patch Hydrocortisone Sodium Succinate (Hydrocortisone Succinate 100 Mg/2 Ml Vial) 50 mg IV Q12HR [facility] Last Admin: 09/20/24 09:23 Dose: 50 mg Hydromorphone HCl (Hydromorphone 1 Mg/Ml 1 Ml Syringe) 1 mg IVP Q3H PRN PRN Reason: Pain Last Admin: 09/17/24 17:05 Dose: 1 mg Fat Emulsion Intravenous 250 (ml/ IV Solution) 250 mls @ 21 mls/hr IV Q72H ANNIE Last Admin: 09/17/24 10:15 Dose: 21 mls/hr Ceftolozane/Tazobactam 3 gm/ (Sodium Chloride) 100 mls @ 100 mls/hr IV Q8HR [facility]; Protocol Stop: 09/21/24 02:00 Last Admin: 09/20/24 15:55 Dose: 100 mls/hr Anidulafungin 100 mg/ Sodium (Chloride) 130 mls @ 84 mls/hr IVPB DAILY [facility]; Protocol Last Admin: 09/20/24 09:23 Dose: 84 mls/hr Propofol 1,000 mg/ IV Solution 100 mls @ 32.34 mls/hr IV .Q3H6M ANNIE; Protocol Last Admin: 09/20/24 16:24 Dose: 50 mcg/kg/min, 32.34 mls/hr Norepinephrine Bitartrate 8 mg (/ Sodium Chloride) 258 mls @ 6.513 mls/hr IV .Q24H ANNIE; Protocol Last Titration: 09/20/24 12:37 Dose: 0 mcg/kg/min, 0 mls/hr Parenteral Vitamin Supplement 10 ml/ Zinc/Copper/Manganese/Selenium 1 ml/ Sodium Acetate 70 meq/ Calcium Gluconate 0.5 gm/ Amino Acids/Dextrose 1,051 mls @ 75 mls/hr IV .BY DURATION [facility] Last Admin: 09/20/24 16:23 Dose: 75 mls/hr Sodium Acetate 70 meq/ Calcium Gluconate 0.5 gm/ Amino Acids /Dextrose 1,040 mls @ 75 mls/hr IV .BY DURATION [facility] Insulin Human Lispro (Insulin Lispro (Humalog) 100 Unit/Ml 10 Ml Vl) 0 unit SQ Q6HR [facility]; Protocol Last Admin: 09/20/24 11:41 Dose: 3 unit Lorazepam (Lorazepam 1 Mg/0.5 Ml Vial) 0.5 mg IV Q6HR PRN PRN Reason: Anxiety Last Admin: 09/15/24 18:26 Dose: 0.5 mg Miscellaneous Information (Pneumonia Protocol Utilized 1 Each Misc) 1 each PO ONCE PRN PRN Reason: Per Protocol Miscellaneous Information (Potassium Replacement Protocol 1 Each Misc) 1 each MISCELLANE DAILY PRN; Protocol PRN Reason: Per Protocol Miscellaneous Information (Magnesium Replacement Protocol 1 Each Misc) 1 each MISCELLANE DAILY PRN; Protocol PRN Reason: Per Protocol Naloxone HCl (Naloxone 0.4 Mg/Ml 1 Ml Vial) 0.2 mg IV Q2M PRN PRN Reason: Opioid Reversal Nystatin (Nystatin 100,000 Unit/Gm Powd 15 Gm) 1 applic TOPICAL BID ANNIE; Protocol Last Admin: 09/20/24 09:41 Dose: 1 applic Ondansetron HCl (Ondansetron 4 Mg/2 Ml Vial) 4 mg IVP Q6HR PRN PRN Reason: Nausea And Vomiting Last Admin: 09/01/24 19:41 Dose: 4 mg Pantoprazole Sodium (Pantoprazole 40 Mg/10 Ml Vial) 40 mg IV DAILY ANNIE Last Admin: 09/20/24 09:24 Dose: 40 mg Petrolatum (Zinc Oxide Paste (Z-Guard) 1 Applic) 1 applic TOPICAL BID PRN; Protocol PRN Reason: Wound Healing Social history: Patient started smoking at the age of [age] 1 pack a day stopped in 2016. Nonambulatory. Is cared by his son over. Who is also the DPOA Physical examination: VITAL SIGNS: 96.2, 69, 36, 104 x 51, 96% underwent GENERAL:, sedated EYES: Pupils equal. Conjunctiva loan l. HEENT: External appearance of nose and ears normal, oral cavity dry NECK: JVD unable to assess; masses not palpable. Tracheostomy HEART: First and second heart sounds are normal; no edema. LUNGS: Respiratory rate increased, decreased breath sounds, some crackles ABDOMEN: Soft, nontender, liver spleen not palpable, no masses palpable. Double barrel ostomy. PSYCH: Able to answer questions by attempting to speak to normal. Not able phonate MUSCULOSKELETAL: Right BKA. Left foot drop. Left hand contracture. Right hand also with contracture but able to have some movements NEUROLOGICAL: Cranial nerves grossly intact; no facial asymmetry, slight movement in the right arm. Awake L INVESTIGATIONS, reviewed in the clinical context: September 18: White count 14.9 hemoglobin 7.6 ABG show pH of 7.2PCO2 of 68P O2 was 77 potassium was 6.1 repeat 5.2 creatinine 0.82 September 17: White count 20 hemoglobin 8.5 platelets 199 potassium 4.2 BUN 25 creatinine 0.4. ABG: pH 7.17 pCO2 79 PO277. September 02: White count 3.6 hemoglobin 9.7 platelets 130 potassium 3.9 BUN 23 creatinine 0.36 ionized calcium 4.3 TSH 2.7 Sputum culture: Pseudomonas aeruginosa: Sensitive to Zosyn, tobramycin, ceftazidime Sputum culture: Pseudomonas aeruginosa August 30: White count 3.5 hemoglobin 10.0 platelets 133 potassium 3.5 creatinine 0.36 August 29, 2024: White count 6.2 hemoglobin 12.3 platelets 216 sodium 128 potassium 3.1 BUN 50 creatinine 0.46 lactic acid 2.1 calcium 10.8 phosphorus 3.0 troponin I 0.016 UA: Negative for nitrite Influenza type A, type B, RSV, SARS-CoV-2: Not detected EKG tracing personally reviewed by me-normal sinus rhythm Chest x-ray film personally reviewed by me-right basilar infiltrate Previous labs: Sputum culture July 20, 2024: Pseudomonas aeruginosa Assessment plan: - basal pneumonia. Previous admission sputum was positive for Pseudomonas aeruginosa-:: Slow to respond Has received different antibiotics. Currently: Aniedulefungin IV, IV ceftolozane tazobactam, IV vancomycin Being followed by pulmonary, and ID - Fluid overload On Lasix drip discontinued - Septic shock: Slow to respond Been on Levophed off-and-on. - Acute on chronic hypoxic and hypercapnic respiratory failure, vent dependent at night at home: Slow to respond 70% FiO2 with a PEEP of 12 - Tracheostomy with trach collar -Acute normocytic anemia of chronic disease and hospital-acquired anemia from blood draws and possible hemolysis from infection 2 units of blood being given today. - Thrombocytopenia likely from sepsis Follow - Right below-knee amputation - Chronic quadriparesis. Including left foot drop. Left arm contracture. Some right hand contracture. Some movement in the right arm - Crohn's disease with double barrel ostomy bag in place since 09/2021 - TPN - Full code - DPOA, son BECKY Requiring IV Levophed off and on. 2 units of blood given today. Remains on propofol Past Medical History Past Medical History: CVA/TIA, Deep Vein Thrombosis (DVT), Pneumonia Additional Past Medical History / Comment(s): Hx CVA in 2012, DVT R arm, Crohns. colostomy Bag placed in 09/2021. History of Any Multi-Drug Resistant Organisms: MRSA, Other MDRO Date of last positivie culture/infection: 07/20/24-Other MDRO; 12/14/23-MRSA MDRO Source:: Other MDRO - sputum, BAL; MRSA- nasal Past Surgical History: Bowel Resection, Cholecystectomy, Orthopedic Surgery Additional Past Surgical History / Comment(s): R BKA, trach with chronic home vent Past Anesthesia/Blood Transfusion Reactions: No Reported Reaction Additional Past Anesthesia/Blood Transfusion Reaction / Comment(s): recalled from previous admission Smoking Status: Never smoker
[2024-09-20 18:01] LABS: HCT 22.4 % (39.6-50.0); HGB 7.2 g/dL (13.0-17.0); Immature Platelet Fraction 7.3 % (1.1-6.1); MCH 27.7 pg (27.0-32.0); MCHC 32.1 g/dL (32.0-37.0); MCV 86.2 fL (80.0-97.0); Platelet Count 104 10*3/uL (140-440); RBC 2.60 10*6/uL (4.40-5.60); RDW 19.2 % (11.5-14.5); WBC 6.26 10*3/uL (4.50-10.00)
[2024-09-20 18:13] LABS: Glucose,Whole Blood 316 mg/dL (70-110)
[2024-09-20 23:43] LABS: Glucose,Whole Blood 258 mg/dL (70-110)
[2024-09-21 05:52] LABS: Basophils # (A) 0.00 10*3/uL (0.00-0.10); Basophils % (A) 0.0 %; Eosinophils # (A) 0.01 10*3/uL (0.04-0.35); Eosinophils % (A) 0.1 %; HCT 24.3 % (39.6-50.0); HGB 7.6 g/dL (13.0-17.0); Lymphocytes # (A) 0.78 10*3/uL (0.90-5.00); Lymphocytes % (A) 11.3 %; MCH 27.0 pg (27.0-32.0); MCHC 31.3 g/dL (32.0-37.0); MCV 86.5 fL (80.0-97.0); Monocytes # (A) 0.26 10*3/uL (0.20-1.00); Monocytes % (A) 3.8 %; Neutrophils # (A) 5.80 10*3/uL (1.80-7.70); Neutrophils % (A) 84.4 %; Platelet Count 115 10*3/uL (140-440); RBC 2.81 10*6/uL (4.40-5.60); RDW 19.7 % (11.5-14.5); WBC 6.88 10*3/uL (4.50-10.00)
[2024-09-21 06:04] LABS: African American GFR (CKD) 59 (>60 ml/min/1.73 sqM); Anion Gap 16 mmol/L; Blood Urea Nitrogen 99 mg/dL (9-20); Calcium 8.1 mg/dL (8.4-10.2); Carbon Dioxide 18 mmol/L (22-30); Chloride 103 mmol/L (98-107); Glucose 228 mg/dL (74-99); Magnesium 2.5 mg/dL (1.6-2.3); Non-African American GFR(CKD) 51 (>60 ml/min/1.73 sqM); Potassium 5.1 mmol/L (3.5-5.1); Sodium 137 mmol/L (137-145)
--- NOTE | 2024-09-21 06:51 | XR ---
EXAMINATION TYPE: XR chest 1V portable DATE OF EXAM: 09/21/2024 5:47 AM COMPARISON: Multiple radiographs, with the most recent on 09/20/2024 TECHNIQUE: XR chest 1V portable Portable AP radiograph of the chest. CLINICAL INDICATION:Male, 49 years old with history of Mechanical ventilation; FINDINGS: Lungs/Pleura: Small right pleural effusion. Similarly diffuse patchy airspace opacities throughout th e lungs. No pneumothorax. Heart/mediastinum: Cardiomediastinal silhouette is enlarged. Musculoskeletal: No acute osseous pathology. Other findings: Surgical clips within the right supraclavicular region. Lines/Tubes: Tracheostomy cannula tip projecting over the trachea. Right subclavian approach central venous catheter with distal tip at the superior cavoatrial junction . IMPRESSION: Overall similar examination with diffuse patchy airspace opacities with small right pleural effusion. Findings may represent pulmonary edema and/or pneumonia. [facility], , 09/21/2024 6:48 AM
--- NOTE | 2024-09-21 09:15 | OP ---
OPERATIVE REPORT DATE OF SERVICE : PROCEDURE PERFORMED: Placement of a right subclavian triple-lumen catheter. PREOPERATIVE DIAGNOSIS: Sepsis, fungemia, hypotension, and strongly suspect infected PICC line on the left side. ANESTHESIA USED: A 2 mL of 1% lidocaine. PROCEDURE DESCRIPTION: The patient was placed in a supine position, the area of the right subclavian region was prepared in a sterile fashion. Drapes were applied. The area was locally anesthetized with lidocaine. Then using the inferior clavicular approach over the subclavicular approach, the right subclavian vein was easily cannulated, and a guidewire was placed. The area around the guidewire was dilated. A triple-lumen catheter was inserted over the guidewire and the guidewire was removed. Good blood flow noted in the 3 different ports. X-ray shows no complications and good placement of the line. Procedure was well tolerated. No complications. Line was secured using 3.0 silk sutures. MMODL / IJN: [id number] /
--- NOTE | 2024-09-21 10:59 | P.PN ---
Subjective Patient is seen for follow-up for acute kidney injury. Currently on the vent. Levophed at 0.02 mcg/kg No significant urine output FiO2 at 50% Significant edema noted. Objective - Vital Signs Vital signs: Vital Signs Temp 97.5 F L 09/21/24 08:00 Pulse 65 09/21/24 10:30 Resp 36 H 09/21/24 10:30 BP 111/57 09/21/24 10:30 Pulse Ox 96 09/21/24 10:30 FiO2 50 09/21/24 08:14 Intake & Output 09/20/24 09/21/24 09/21/24 18:59 06:59 18:59 Intake Total 2425.554 2568.941 524.765 Output Total 1560 740 10 Balance 805.056 4470.941 514.765 Weight 114.5 kg Intake: IV 1347 1146 352 0.9 120 110 40 Ceftolozane/Tazobactam 3 220 100 gm In Sodium Chloride 0.9 % 100 ml @ 100 mls/hr IV Q8HR ANNIE Rx#:[id number] Lasix gtt 80 Pressure Bag 27 36 12 TPN 900 900 300 Intake, IV Titration 812.995 7870.941 172.765 Amount Anidulafungin 100 mg In 100 100 Sodium Chloride 0.9% 100 ml @ 84 mls/hr IVPB DAILY ANNIE Rx#:[id number] Mvi, Adult No.4 with Vit 1051 K 10 ml Trace (Conc-1Ml/ Dose) 1 ml Sodium Acetate 70 meq Calcium Gluconate 0.5 gm In Amino Acids 5 %/Dextrose 20 % 1,000 ml @ 75 mls/hr IV .BY DURATION ANNIE Rx#: [id number] Norepinephrine 8 mg In 7.634 0 Sodium Chloride 0.9% 250 ml @ 0.03 MCG/KG/MIN 6. 513 mls/hr IV .Q24H ANNIE Rx#:[id number] propofoL 1,000 mg In 350.92 371.941 72.765 Empty Bag 1 bag @ 50 MCG/ KG/MIN 32.34 mls/hr IV . Q3H6M ANNIE Rx#:[id number] Blood Product 620 Rc As-1 Unit 310 [id number] Rc As-1 Unit 310 [id number] Output: Drainage 900 Medial Abdomen 900 Urine 60 40 10 Stool 600 700 Other: Voiding Method Indwelling Catheter Indwelling Catheter Indwelling Catheter ABP, PAP, CO, CI - Last Documented Arterial Blood Pressure 100/44 - Exam Patient is on the vent Examination of the heart S1 and S2 Tracheostomy noted Examination of the lungs bilateral breath sounds are heard Abdomen is distended Examination of lower extremities shows left BKA and significant edema in the right leg as well as scrotal edema noted. - Labs CBC & Chem 7: 09/21/24 05:15 09/21/24 05:15 Labs: Abnormal Lab Results - Last 24 Hours (Table) 09/17/24 09/20/24 09/20/24 Range/Units 05:28 11:32 12:30 RBC 2.46 L (4.40-5.60) 10*6/uL Hgb 6.8 L* (13.0-17.0) g/dL Hct 21.2 L (39.6-50.0) % MCHC (32.0-37.0) g/dL Plt Count 114 L (140-440) 10*3/uL MPV 12.9 H (9.5-12.2) fL Lymphocytes # (0.90-5.00) 10*3/uL Eosinophils # (0.04-0.35) 10*3/uL Immature Plt Fraction (1.1-6.1) % Carbon Dioxide (22-30) mmol/L BUN (9-20) mg/dL Creatinine (0.66-1.25) mg/dL Glucose (74-99) mg/dL POC Glucose (mg/dL) 277 H (70-110) mg/dL Calcium (8.4-10.2) mg/dL Phosphorus (2.5-4.5) mg/dL Magnesium (1.6-2.3) mg/dL Crossmatch See Detail 09/20/24 09/20/24 09/20/24 Range/Units 17:40 18:11 23:40 RBC 2.60 L (4.40-5.60) 10*6/uL Hgb 7.2 L (13.0-17.0) g/dL Hct 22.4 L (39.6-50.0) % MCHC (32.0-37.0) g/dL Plt Count 104 L (140-440) 10*3/uL MPV (9.5-12.2) fL Lymphocytes # (0.90-5.00) 10*3/uL Eosinophils # (0.04-0.35) 10*3/uL Immature Plt Fraction 7.3 H (1.1-6.1) % Carbon Dioxide (22-30) mmol/L BUN (9-20) mg/dL Creatinine (0.66-1.25) mg/dL Glucose (74-99) mg/dL POC Glucose (mg/dL) 316 H 258 H (70-110) mg/dL Calcium (8.4-10.2) mg/dL Phosphorus (2.5-4.5) mg/dL Magnesium (1.6-2.3) mg/dL Crossmatch 09/21/24 09/21/24 Range/Units 05:15 05:15 RBC 2.81 L (4.40-5.60) 10*6/uL Hgb 7.6 L (13.0-17.0) g/dL Hct 24.3 L (39.6-50.0) % MCHC 31.3 L (32.0-37.0) g/dL Plt Count 115 L (140-440) 10*3/uL MPV (9.5-12.2) fL Lymphocytes # 0.78 L (0.90-5.00) 10*3/uL Eosinophils # 0.01 L (0.04-0.35) 10*3/uL Immature Plt Fraction (1.1-6.1) % Carbon Dioxide 18 L (22-30) mmol/L BUN 99 H (9-20) mg/dL Creatinine 1.58 H (0.66-1.25) mg/dL Glucose 228 H (74-99) mg/dL POC Glucose (mg/dL) (70-110) mg/dL Calcium 8.1 L (8.4-10.2) mg/dL Phosphorus 5.4 H (2.5-4.5) mg/dL Magnesium 2.5 H (1.6-2.3) mg/dL Crossmatch Microbiology - Last 24 Hours (Table) 09/18/24 09:45 Blood Culture Gram Stain - Preliminary Blood Blood Culture - Preliminary Molecular ID Assessment and Plan Assessment: 1. Acute kidney injury secondary to ATN secondary to septic shock. Also concern for vancomycin toxicity. Vancomycin level 49.3 on 09/19/2024. Patient remains oliguric with significant volume overload noted. Will proceed with renal replacement therapy. 2. Septic shock secondary to pneumonia and fungemia. Currently off Levophed. 3. Acute blood loss anemia with hemoglobin of 6.3 today. Currently receiving a unit of blood. 4. Volume overload. 5. Chronic hypoxic and hypercapnic respiratory failure, home ventilator dependent. 6. History of cardiac arrest. 8. Status post right BKA. Plan: IV Lasix x 1 Proceed with renal replacement therapy. Consult vascular surgery and we will plan for first treatment of hemodialysis tomorrow. Continue antibiotics and antifungal treatment as per ID Continue with TPN Monitor electrolytes.
[2024-09-21] MEDS: FUROSEMIDE 10 MG/ML 10 ML VIAL IV STA (11:02)
--- NOTE | 2024-09-21 11:46 | P.PN ---
Subjective Progress Note Date: 09/21/24 Principal diagnosis: Pneumonia. This is a 49-year-old white male familiar to my service, history of paraplegia, home vent dependent, history of tracheostomy, patient had multiple admissions to the ICU for recurrent episodes of pneumonia and respiratory failure requiring ventilatory support. On his last admission patient was eventually discharged home on a home ventilator, and this was back on 08/04/2024. Patient was discharged home with a PICC line, patient was in the ER yesterday on 08/28 for abnormal labs mostly low potassium and low sodium discharged home however he cam e back today complaining of shortness of breath, has been ventilator dependent all along. Chest x-ray showed basically bibasilar opacities/atelectasis, doubt pneumonia, the findings in the left lower lobe are chronic. Patient did have previous history of pneumonia involving the left lower lobe and he had multiple bronchoscopies in the past. Bronchial cultures and sputum cultures have been positive in the past for mostly Pseudomonas aeruginosa. Patient was seen in the ER today, and he is already on cefepime for empiric coverage for potential left lower lobe pneumonia, patient had abnormal electrolytes with relatively low sodium low potassium, no leukocytosis, normal renal profile, blood pressure was soft, and he was given fluid boluses. Lactic acid was 2.1, D-dimer is normal, patient was admitted, and this consult was initiated. 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 Patient was seen today on 08/30/2024, patient continues to have intermittent episodes of fever with Tmax of 102, patient required norepinephrine and he remains on norepinephrine at 0.04 mcg/kg/min remains on LR at 130 cc/h remains on his home ventilator at tidal volume of 450 rate of 20 FiO2 45% and PEEP of 5. Seems comfortable, not in distress, his WBC is 3.5 hemoglobin 10.0 electrolytes are normal renal profile is normal potassium is borderline low. Patient remains on cefepime, vancomycin was added because of his previous history of MRSA, and is on cefepime for previous history of pseudomonal infection and now that the patient may be septic it is more of a reason to broaden the spectrum of antibiotics coverage with cefepime and vancomycin. Sputum cultures and blood cultures are pending. Patient does have history of pseudomonal and history of MRSA infections, and I discontinued his Zithromax today replace Zithromax with vancomycin. Viral screen is negative Legionella antigen is negative. Chest x- ray is relatively unchanged continues to show bibasilar opacities atelectasis/pneumonia. Progress note dated August 31, 2024. The patient is seen today in room 252. The patient was admitted a couple days ago, to the intensive care unit. The patient is currently on mechanical ventilator, actually his home ventilator. He is on volume assist-control, rate 20, tidal volume 450, FiO2 45% PEEP of 5. The patient is getting lactated Ringer's at 130 cc an hour, TPN at 91 cc an hour, norepinephrine at 8 mcg/min. Doppler of the left upper extremity was negative. He continues on Zerbaxa, and vancomycin. We will check a procalcitonin level. Cultures thus far are negative. He does have a previous history of methicillin-resistant Staph aureus infection, and pseudomonal infections. White count was 2.21, hemoglobin 9.3, hematocrit 32, platelet count 1 61,000. D-dimer was 5.78. Sodium 132, potassium 4.3, chlorides 106, CO2 21, BUN 18, creatinine 0.28. Glucose was 141. Calcium 7.8. C. difficile study was negative. Urine Legionella antigen was negative. Microbiologic studies are currently negative. Chest x-ray shows bibasilar airspace opacities, possibly consistent with pneumonia. 09/01/24 - The patient is seen today in room 252. Admitted to the hospital and the intensive care unit on 08/29/2024. The patient is currently on mechanical ventilator, his one from home. He is on volume assist control, rate of 20, tidal volume of 450, FiO2 45% and PEEP of 5. He currently has LR running at 50 cc/h, TPN at 91 cc/h, Zerbaxa and tobramycin. Chest Xray done this morning showed stable airspace opacities. Cultures are positive for pseudomonas aeruginosa, awaiting sensitivities. WBCs 2.69, Hgb 8.9, Hct 31.5, PLT 153, Na 135, K 3.4, Cl 109, HCO3 19, BUN 22, Cr 0.34, Phos 2.4. 09/02/24 - He is seen today in room 252. Admitted to the hospital and ICU on 08/29/24. He continues on mechanical ventilator, his one from home. He remaines on volume assist control, rate of 20, tidal volume of 450, FiO2 45% and PEEP of 5. He continues to have LR running at 50 cc/h, TPN at 91 cc/h, norepinephrine at 0.13 mcg/kg/min, Zebraxa and Tobramycin. Chest XRay this morning showed stable airspace opacities. Continue to await sensitivity of pseudomonas sputum culture. Lab work shows WBCs 3.64, Hgb 9.7, Hct 33.5, PLT 130, Na 133, K 3.9, bicarb 21, BUN 23, Cr 0.36, Ca 7.8, Mg 2.4, Albumin 2.3. 09/03/24 - He is seen in room 252. Admitted to the hospital and ICU on 08/29/24. He continues on mechanical ventilator, his one from home. He remaines on volume assist control, rate of 20, tidal volume of 450, FiO2 45% and PEEP of 5. He continues to have LR running at 50 cc/h, TPN at 91 cc/h, norepinephrine at 0.24 mcg/kg/min, Avycaz and Tobramycin. Zebraxa was discontinued as there was no reported sensitivity to it. Lab work shows WBCs 9.40, Hgb 8.8, Hct 30.6, PLT 100, Na 130, K 3.6, bicarb 23, BUN 25, Cr 0.51, Ca 7.8, Ionized Ca 4.6, Phos 3.3, Mg 2.1, TSH 2.710 and random cortisol 13.1. 09/04/24 - He is seen in room 252. Admitted to the hospital and ICU on 08/29/24. He continues on mechanical ventilator, his one from home. He remaines on volume assist control, rate of 20, tidal volume of 450, FiO2 45% and PEEP of 5. He continues to have LR running at 50 cc/h, TPN at 91 cc/h, norepinephrine at 0.24 mcg/kg/min, Avycaz and Tobramycin. Lab work shows sodium 133, potassium 3.5, bicarb 24, BUN 27, creatinine 0.47, calcium 7.9, ionized calcium 4.6, magnesium 1.9, phosphorus 3.0, total bilirubin 1.7, AST 57, ALT 45, alkaline phosphatase 99. Progress note dated September 05, 2024. 49-year-old male well-known to our service. He is seen today in room 252. He continues on volume assist-control, rate 20, tidal 450, FiO2 45%, PEEP of 5. The patient has refused blood gases. Currently, he is getting TPN at 65 cc an hour, norepinephrine at 1 mcg/min, LR at 50 cc/h. Clinically, the patient is doing well. His chest x-ray remains about the same. Yesterday he was on a higher dose of norepinephrine, and also was on vasopressin. Both have been weaned off. Current labs include a sodium 136, potassium 4.1, chlorides 101, CO2 28, BUN 30, creatinine 0.37. Glucose 153. Albumin is 2.2. Previous sputum, from August 29 with positive for Pseudomonas aeruginosa. Chest x-ray is largely unchanged. Progress note dated September 06, 2024. 49-year-old male again seen today in the intensive care unit, room 252. He remains on mechanical ventilator, actually his home ventilator, with settings of volume assist-control, rate 20, tidal volume 450, FiO2 45%, PEEP of 5. No blood gases today. The patient has been refusing. He is getting lactated Ringer's at 50 cc an hour, TPN at 65 cc an hour. He continues on the same antibiotics. White count 5.21, hemoglobin 7.9, hematocrit 27.5, and platelet count 64,000. Sodium 141, potassium 3.5, chlorides 102, CO2 32, BUN 25, and creatinine 0.35. Glucose is 152. Calcium is 8. Albumin is 2.1. Chest x-ray is largely unchanged. Patient was seen today on 09/16/2024, patient is basically about the same. Hardly any improvement noted in the last few weeks since admission, patient remains intubated, mechanically ventilated, same ventilator settings, assist-control rate of 20 tidal volume 450 FiO2 60% and PEEP of 8 ABG was not done today, no easy access, attempted to place arterial lines in this patient, but could not pass a wire although the arteries including femoral artery and left brachial artery were easily cannulated. No further attempts made for arterial access. Patient remains on norepinephrine at 0.13 mcg/kg/min still on TPN at 75 cc/h still on Zerbaxa and vancomycin chest x-ray showed worsening today of bilateral infiltrates possibly some component of fluid overload and I recommended Lasix 20 mg IV push twice daily. Patient seems to be quite swollen and edematous. WBC count is 5.4 hemoglobin 7.6 electrolytes showed sodium of 146 potassium 4.1 BUN 20 creatinine 0.47 Patient was seen today on 09/17/2024, patient seems to be deteriorating steadily over the last 24 hours, he is developing profound hypotension requiring pressors in the form of Levophed at 0.4 mcg/kg/min he is also on vasopressin at 0.04 units/min he is on TPN at 75 cc/h hemoglobin is noted to be low at 6.9, patient has positive yeast in the blood/fungemia he is on fluconazole, this is being addressed by infectious disease on the case. Earlier ABG showed a pO2 of 77 pCO2 88 pH of 7.13, Vent settings were adjusted with increasing the rate to 36. He is now on tidal volume of 350 FiO2 100% PEEP is 10 and rate is 36. Another ABG is pending. But clearly patient is taking a downhill clinical course. Patient is quite septic, I will likely change his central line, and place a new central line in this patient today and remove the old central line/PICC line. Patient will receive a unit of packed RBCs for hemoglobin of 6.9. Considering the change in his overall clinical status, discussed his condition with son, would like to keep his dad as a full code, he is very well aware of the poor prognostic picture and how ill his dad is. Would like to keep him a full code. WBC count today is 20.03 hemoglobin 8.5, basic metabolic profile is normal BUN is 25 creatinine 0.4 total protein is 6.9 albumin is 1.9. Patient was seen today on 09/18/24, remains in the ICU, intubated and mechanically ventilated. Patient is still requiring assist-control rate of maximal ventilatory support with rate of 36 tidal volume increased today up to 400 FiO2 decreased from 100% to 70% PEEP remains at 12. Earlier ABG before changes were made at the FiO2 had been on tidal volume showed a pO2 of 77 pCO2 68 pH of 7.20. Patient is still requiring norepinephrine and I have been titrating the norepinephrine earlier this morning he is down to 0.18 from 0.46 yesterday micrograms per kilo per minute vasopressin is still at 0.04 units/min patient is on propofol at 50 mcg/kg/min Lasix drip at 20 mg/h and TPN at 75 cc/h. I am also treating the patient with vancomycin, Zerbaxa, and Eraxis was added to replace fluconazole yesterday by infectious disease specially with his positive blood cultures for Bella. Urine output is improving with the Lasix drip, he did not improve much with 1 dose of Lasix 60 mg IV push. Remains on Solu-Cortef at 100 mg IV push every 8 hours patient is in positive fluid balance about 6 L hence I decided to go with Lasix drip today. Labs today showed slight improvement in his WBC count down to 14.9 hemoglobin is 7.6, electrolytes are abnormal with a potassium of 6.1 BUN is 45 creatinine 0.82 chest x-ray continues show bilateral interstitial edema/infiltrates, could be cardiogenic or noncardiogenic pulmonary edema I believe it is mostly cardiogenic/related to fluid overload as he received significant fluids yesterday for low blood pressure. And he was not making much urine in the last 24 hours. Hence Lasix drip was started today. Patient was seen today on 09/19/2024, remains in the ICU, remains intubated and mechanically ventilated. Patient is on assist-control rate of 36 tidal volume 400 FiO2 65% and PEEP of 12. His ABG showed a pO2 of 142 pCO2 52 pH of 7.28, hence cut down his FiO2 down to 50%. The PEEP at 12. Patient remains hemodyn amically unstable, remains on norepinephrine at 0.08 mcg/kg/min, his vasopressin has been discontinued. TPN is at 75 cc/h. Remains on Lasix drip/infusion at 20 mg/h. He is on propofol at 50 mcg/kg/min remains on Solu-Cortef 50 mg every 8, Eraxis, Zerbaxa, vancomycin. Urine output is marginal at about 10 to 20 cc/h in spite of Lasix drip. Lovenox will be resumed today at 80 mg subcu twice daily. Patient is sedated, his overall clinical status is showing slight improvement compared to the clinical status couple of days ago. Chest x-ray continues to show evidence of interstitial edema although the possibility of ARDS is not entirely ruled out considering his overall septic picture. CBC is about the same with WBC of 7.7 hemoglobin 7.1. Platelets are 128,000. Basic metabolic profile is normal potassium is down to 5.2 BUN is 67 creatinine is slightly higher today 1.13. Blood sugar is 358. Patient was seen today on 09/20/2024, remains in the ICU intubated mechanically ventilated. On assist-control rate of 36 tidal volume 400 FiO2 50% PEEP of 12, no ABG done today, however his O2 saturation is in the high 90s about 98%. Patient had a low hemoglobin today and he will need a unit of blood/packed RBCs for low hemoglobin. No active bleeding noted, Hemoccult stools will be done t lizette. Patient remains on Eraxis and Zerbaxa, his vancomycin was discontinued remains on lower dose of Solu-Cortef 50 mg IV push every 12 hours. Continues to have poor urine output and his renal functioning is getting a bit worse. Nephrology was consulted, patient received initially significant amount of fluids for his presentation of sepsis, and he remained oliguric in spite of fluid boluses. Then he was placed on Lasix drip which initially was working fine, now that urine output is rather marginal and spite of Lasix drip at 20 mg an hour. I am recommending a trial of albumin followed by 80 mg of Lasix IV push. And hopefully his urine output will pharmacy picking tech with the albumin and with the blood transfusion which is scheduled to be done soon. Vancomycin has been discontinued. Chest x-ray continues to show evidence of interstitial edema. Labs are reviewed his potassium is 5 bicarb is 20 BUN is 83 creatinine 1.49 platelets are 105 hemoglobin 6.3. Progress note dated September 21, 2024. The patient remains on volume assist-control, rate 36, tidal volume 400, FiO2 50%, PEEP of 12. Blood gases were not obtained. He continues on TPN at 75 cc an hour, propofol at 50 mcg/kg/min, saline at 10 cc an hour, and norepinephrine is currently on hold. Antibiotic douglas, he continues on vancomycin, and Eraxis. White count is 6.9, hemoglobin 7.6, hematocrit 24.3, and platelet count 115,000. Sodium 137, potassium 5.1, chlorides 103, CO2 18, anion gap 16, BUN 99, creatinine 1.58. Glucose is 228. Calcium 8.1, phosphorus 5.4, magnesium 2.5. Culture data shows evidence of Pseudomonas aeruginosa back on August 29, Pseudomonas in the bronchial washings on September 07, and blood cultures positive, September 18, currently pending. Chest x-ray is largely unchanged, shows patchy diffuse airspace opacities, with a small right-sided pleural effusion. Objective - Vital Signs Vital signs: Vital Signs Temp 97.5 F L 09/21/24 08:00 Pulse 66 09/21/24 11:00 Resp 36 H 09/21/24 11:00 BP 116/59 09/21/24 11:00 Pulse Ox 96 09/21/24 11:00 FiO2 50 09/21/24 08:14 Intake & Output 09/20/24 09/21/24 09/21/24 18:59 06:59 18:59 Intake Total 2425.554 2568.941 718.627 Output Total 1560 740 15 Balance 471.210 5729.941 703.627 Weight 114.5 kg Intake: IV 1347 1146 440 0.9 120 110 50 Ceftolozane/Tazobactam 3 220 100 gm In Sodium Chloride 0.9 % 100 ml @ 100 mls/hr IV Q8HR ANNIE Rx#:[id number] Lasix gtt 80 Pressure Bag 27 36 15 TPN 900 900 375 Intake, IV Titration 123.893 4006.941 278.627 Amount Anidulafungin 100 mg In 100 100 Sodium Chloride 0.9% 100 ml @ 84 mls/hr IVPB DAILY ANNIE Rx#:[id number] Mvi, Adult No.4 with Vit 1051 K 10 ml Trace (Conc-1Ml/ Dose) 1 ml Sodium Acetate 70 meq Calcium Gluconate 0.5 gm In Amino Acids 5 %/Dextrose 20 % 1,000 ml @ 75 mls/hr IV .BY DURATION ANNIE Rx#: [id number] Norepinephrine 8 mg In 7.634 5.862 Sodium Chloride 0.9% 250 ml @ 0.03 MCG/KG/MIN 6. 513 mls/hr IV .Q24H ANNIE Rx#:[id number] propofoL 1,000 mg In 350.92 371.941 172.765 Empty Bag 1 bag @ 50 MCG/ KG/MIN 32.34 mls/hr IV . Q3H6M ANNIE Rx#:[id number] Blood Product 620 As-1 Unit 310 [id number] Rc As-1 Unit 310 [id number] Output: Drainage 900 Medial Abdomen 900 Urine 60 40 15 Stool 600 700 Other: Voiding Method Indwelling Catheter Indwelling Catheter Indwelling Catheter ABP, PAP, CO, CI - Last Documented Arterial Blood Pressure 100/44 - Exam No acute distress, currently connected to the ventilator. He has a tracheostomy tube in place. HEENT examination is grossly unremarkable. Mucous membranes are moist. No oral lesions. Neck supple. Full range of motion. No adenopathy thyromegaly or neck vein distention. Cardiovascular examination reveals regular rhythm rate. S1-S2 normal. No S3 or S4. No discernible murmur noted. Lungs reveal scattered rhonchi and crackles. No wheezes. Breath sounds equal bilaterally. Abdomen reveals an enterocutaneous fistula, normal bowel sounds. No tenderness. No masses. Extremities are intact. No cyanosis clubbing or edema. Right below the knee amputation. Skin is without rash or lesion. Neurologic examination is brief but nonfocal. He does have significant muscle atrophy, and contractures. He has a right below the knee amputation. - Labs CBC & Chem 7: 09/21/24 05:15 09/21/24 05:15 Labs: Abnormal Lab Results - Last 24 Hours (Table) 09/17/24 09/20/24 09/20/24 Range/Units 05:28 12:30 17:40 RBC 2.46 L 2.60 L (4.40-5.60) 10*6/uL Hgb 6.8 L* 7.2 L (13.0-17.0) g/dL Hct 21.2 L 22.4 L (39.6-50.0) % MCHC (32.0-37.0) g/dL Plt Count 114 L 104 L (140-440) 10*3/uL MPV 12.9 H (9.5-12.2) fL Lymphocytes # (0.90-5.00) 10*3/uL Eosinophils # (0.04-0.35) 10*3/uL Immature Plt Fraction 7.3 H (1.1-6.1) % Carbon Dioxide (22-30) mmol/L BUN (9-20) mg/dL Creatinine (0.66-1.25) mg/dL Glucose (74-99) mg/dL POC Glucose (mg/dL) (70-110) mg/dL Calcium (8.4-10.2) mg/dL Phosphorus (2.5-4.5) mg/dL Magnesium (1.6-2.3) mg/dL Crossmatch See Detail 09/20/24 09/20/24 09/21/24 Range/Units 18:11 23:40 05:15 RBC (4.40-5.60) 10*6/uL Hgb (13.0-17.0) g/dL Hct (39.6-50.0) % MCHC (32.0-37.0) g/dL Plt Count (140-440) 10*3/uL MPV (9.5-12.2) fL Lymphocytes # (0.90-5.00) 10*3/uL Eosinophils # (0.04-0.35) 10*3/uL Immature Plt Fraction (1.1-6.1) % Carbon Dioxide 18 L (22-30) mmol/L BUN 99 H (9-20) mg/dL Creatinine 1.58 H (0.66-1.25) mg/dL Glucose 228 H (74-99) mg/dL POC Glucose (mg/dL) 316 H 258 H (70-110) mg/dL Calcium 8.1 L (8.4-10.2) mg/dL Phosphorus 5.4 H (2.5-4.5) mg/dL Magnesium 2.5 H (1.6-2.3) mg/dL Crossmatch 09/21/24 Range/Units 05:15 RBC 2.81 L (4.40-5.60) 10*6/uL Hgb 7.6 L (13.0-17.0) g/dL Hct 24.3 L (39.6-50.0) % MCHC 31.3 L (32.0-37.0) g/dL Plt Count 115 L (140-440) 10*3/uL MPV (9.5-12.2) fL Lymphocytes # 0.78 L (0.90-5.00) 10*3/uL Eosinophils # 0.01 L (0.04-0.35) 10*3/uL Immature Plt Fraction (1.1-6.1) % Carbon Dioxide (22-30) mmol/L BUN (9-20) mg/dL Creatinine (0.66-1.25) mg/dL Glucose (74-99) mg/dL POC Glucose (mg/dL) (70-110) mg/dL Calcium (8.4-10.2) mg/dL Phosphorus (2.5-4.5) mg/dL Magnesium (1.6-2.3) mg/dL Crossmatch Assessment and Plan Assessment: Septic shock, likely secondary to Pseudomonas pneumonia, or urinary tract infection. Probable fungemia, currently on Eraxis. Chronic hypoxemic and hypercapnic respiratory failure, ventilator dependent, on a home ventilator, S/P tracheostomy. Left lower lobe atelectasis, possible pneumonia, with pseudomonal infection. History of severe tracheal stenosis, S/P tracheostomy. History of recurrent pneumonia, involving the left lower lobe. Tracheobronchomalacia. History of DVT. History of CVA. History of right below-knee amputation. Previous history of asystole/cardiac arrest, 2021. History of Crohn's disease, S/P enterocutaneous fistula, diverting ileostomy. Plan: Plan dated August 31, 2024. The patient is seen today in room 252. The patient's weight had on fluids, and the lactated Ringer's is cut back to 40 cc an hour. The patient will get 1 dose of Lasix IV push. Ventilator settings are noted. No blood gases today. It was apparently refused by the patient. Doppler of the left upper extremity was negative for DVT. Will check a procalcitonin level. The patient continues on norepinephrine at 8 mcg/min. He is getting TPN at 91 cc an hour. We will continue to follow make recommendations along the way. Labs, x-rays, and all medications are reviewed. Prognosis is certainly guarded. Dictation was produced using [employer] software. Please excuse any grammatical, word or spelling errors. Plan dated September 05, 2024. The patient is seen today in room 252. He is connected to his home mechanical ventilator. Settings of the same and include volume assist-control, rate 20, tidal volume 450, FiO2 45%, PEEP of 5. The patient is getting TPN at 65 cc an hour, norepinephrine has been weaned down to 1 mcg/min. He is getting lactated Ringer's at 50 cc an hour. He continues on Avycaz and tobramycin. We will continue to follow make recommendations. The patient also continues on hydrocortisone, for relative adrenal insufficiency. Prognosis is certainly guarded. We will continue to follow. Dictation was produced using [employer] software. Please excuse any grammatical, word or spelling errors. Plan dated September 06, 2024. The patient is seen today in room 252. He continues on mechanical ventilation. The patient is having increased secretions. Will add a scopolamine patch. He continues on Avycaz, and tobramycin. In addition, he continues on TPN at 65 cc an hour, and lactated Ringer's at 50 cc an hour. All labs, x-rays, and medications are reviewed. Chest x-ray is unchanged. We will continue to follow make recommendations. Prognosis is guarded. Dictation was produced using [employer] software. Please excuse any grammatical, word or spelling errors. Progress note dated September 21, 2024. The patient is again seen today in room 252, with presumed ongoing sepsis. The patient has norepinephrine on standby, for blood pressure support, and recently was maxed out on multiple vasopressors. Currently, the patient continues on Eraxis, and vancomycin. The patient also continues on TPN at 75 cc an hour, propofol at 50 mcg/kg/min. All labs, x-rays, medications are reviewed. The patient's overall prognosis remains very poor. We will continue to follow. He remains a full code. Dictation was produced using [employer] software. Please excuse any grammatical, word or spelling errors. Time with Patient: Greater than 30
[2024-09-21 13:18] LABS: Glucose,Whole Blood 249 mg/dL (70-110)
[2024-09-21] MEDS: LIDOCAINE 1% INJ 10MG/ML (20 ML MDV) SQ ONE (16:30)
[2024-09-21 16:42] LABS: Allen Test Performed? Yes
[2024-09-21 16:43] LABS: ABG HCO3 21 mmol/L (21-25); ABG PCO2 55 mmHg (35-45); ABG PH 7.19 (7.35-7.45); ABG PO2 62 mmHg (83-108); ABG TCO2 23 mmol/L (19-24)
[2024-09-21] MEDS: HEPARIN SODIUM 1,000 UN/ML (10ML VL) MISCELLANE ONE (16:56)
[2024-09-21 18:05] LABS: Glucose,Whole Blood 245 mg/dL (70-110)
--- NOTE | 2024-09-21 19:08 | P.GSCN ---
History of Present Illness History of present illness: 49-year-old gentleman consulted for placement of a dialysis catheter. Patient has has been intubated with tracheostomy history of chronic renal failure respiratory failure patient had a right above-knee amputation patient had a right subclavian catheter Patient seen in the intensive care unit patient is intubated with tracheostomy Chest patient has a bilateral crackles lung bases. Second sound present Abdomen soft nontender Patient has a right leg amputation Plan is placement of a dialysis catheter risk and complication discussed Past Medical History Past Medical History: CVA/TIA, Deep Vein Thrombosis (DVT), Pneumonia Additional Past Medical History / Comment(s): Hx CVA in 2012, DVT R arm, Crohns. colostomy Bag placed in 09/2021. History of Any Multi-Drug Resistant Organisms: MRSA, Other MDRO Year Discovered:: 09/07/24-Other MDRO; 12/14/23-MRSA MDRO Source:: Other MDRO - sputum, BAL; MRSA- nasal Past Surgical History: Bowel Resection, Cholecystectomy, Orthopedic Surgery Additional Past Surgical History / Comment(s): R BKA, trach with chronic home vent Past Anesthesia/Blood Transfusion Reactions: No Reported Reaction Additional Past Anesthesia/Blood Transfusion Reaction / Comm: recalled from previous admission Smoking Status: Never smoker - Past Family History Father Additional Family Medical History / Comment(s): DAD IN HIS TWENTIES - CAUSE UNKNOWN. Mother Family Medical History: Diabetes Mellitus Brother(s) Family Medical History: Cancer Additional Family Medical History / Comment(s): Kidney cancer as a baby. Medications and Allergies Home Medications Medication Instructions Recorded Confirmed Type Pantoprazole [Protonix] 40 mg PO BID 07/07/22 08/29/24 History Enoxaparin [Lovenox] 100 mg SQ Q12H 06/19/24 08/29/24 History Folic Acid 1 mg PO DAILY 06/19/24 08/29/24 History Loperamide HCl [Imodium A-D] 4 mg PO Q6H 06/19/24 08/29/24 History Thiamine [Vitamin B-1] 100 mg PO DAILY 06/19/24 08/29/24 History busPIRone HCl [Buspar] 15 mg PO BID 30 Days #60 tab 07/14/24 08/29/24 Rx HYDROcodone/APAP 5-325MG [[place] 1 tab PO Q6H PRN 07/17/24 08/29/24 History 5-325] Ipratropium-Albuterol Nebulize 3 ml INHALATION RT-QID #100 each 08/04/24 08/29/24 Rx [Duoneb 0.5 mg-3 mg/3 ml Soln] Ipratropium-Albuterol Nebulize 3 ml INHALATION RT-QID PRN each 08/04/24 08/29/24 Rx [Duoneb 0.5 mg-3 mg/3 ml Soln] Scopolamine 1 mg/72 Hr Patch 1 patch TRANSDERM Q72H #30 patch 08/04/24 08/29/24 Rx [TransDerm Scop] Amoxic-Pot Clav 875-125Mg 1 tab PO BID 08/19/24 08/29/24 History [Augmentin 875-125] Cholecalciferol (Vitamin D3) 1,250 mcg PO MOTH 08/29/24 08/29/24 History [Vitamin D3 (1250 Mcg = 50,000 Iu)] Cholecalciferol [Vitamin D3 (125 125 mcg PO DAILY 08/29/24 08/29/24 History Mcg = 5000 Iu)] Furosemide [Lasix] 20 mg PO DAILY 08/29/24 08/29/24 History Allergies Allergy/AdvReac Type Severity Reaction Status Date / Time piperacillin [From Zosyn] Allergy Rash/Hives Verified 08/29/24 08:45 tazobactam [From Zosyn] Allergy Rash/Hives Verified 08/29/24 08:45 Surgical - Exam Vital Signs Temp Pulse Resp BP Pulse Ox 100.2 F H 114 H 24 110/73 97 08/29/24 05:08 08/29/24 05:08 08/29/24 05:08 08/29/24 05:08 08/29/24 05:08 Results - Labs 09/21/24 05:15 09/21/24 05:15 Abnormal Lab Results - Last 24 Hours (Table) 09/20/24 09/21/24 09/21/24 Range/Units 23:40 05:15 05:15 RBC 2.81 L (4.40-5.60) 10*6/uL Hgb 7.6 L (13.0-17.0) g/dL Hct 24.3 L (39.6-50.0) % MCHC 31.3 L (32.0-37.0) g/dL Plt Count 115 L (140-440) 10*3/uL Lymphocytes # 0.78 L (0.90-5.00) 10*3/uL Eosinophils # 0.01 L (0.04-0.35) 10*3/uL ABG pH (7.35-7.45) ABG pCO2 (35-45) mmHg ABG pO2 (83-108) mmHg ABG O2 Saturation (94-97) % Carbon Dioxide 18 L (22-30) mmol/L BUN 99 H (9-20) mg/dL Creatinine 1.58 H (0.66-1.25) mg/dL Glucose 228 H (74-99) mg/dL POC Glucose (mg/dL) 258 H (70-110) mg/dL Calcium 8.1 L (8.4-10.2) mg/dL Phosphorus 5.4 H (2.5-4.5) mg/dL Magnesium 2.5 H (1.6-2.3) mg/dL 09/21/24 09/21/24 09/21/24 Range/Units 13:16 16:35 18:04 RBC (4.40-5.60) 10*6/uL Hgb (13.0-17.0) g/dL Hct (39.6-50.0) % MCHC (32.0-37.0) g/dL Plt Count (140-440) 10*3/uL Lymphocytes # (0.90-5.00) 10*3/uL Eosinophils # (0.04-0.35) 10*3/uL ABG pH 7.19 L* (7.35-7.45) ABG pCO2 55 H (35-45) mmHg ABG pO2 62 L (83-108) mmHg ABG O2 Saturation 88.0 L (94-97) % Carbon Dioxide (22-30) mmol/L BUN (9-20) mg/dL Creatinine (0.66-1.25) mg/dL Glucose (74-99) mg/dL POC Glucose (mg/dL) 249 H 245 H (70-110) mg/dL Calcium (8.4-10.2) mg/dL Phosphorus (2.5-4.5) mg/dL Magnesium (1.6-2.3) mg/dL Diabetes panel 09/21/24 Range/Units 05:15 Sodium 137 (137-145) mmol/L Potassium 5.1 (3.5-5.1) mmol/L Chloride 103 (98-107) mmol/L Carbon Dioxide 18 L (22-30) mmol/L BUN 99 H (9-20) mg/dL Creatinine 1.58 H (0.66-1.25) mg/dL Glucose 228 H (74-99) mg/dL Calcium 8.1 L (8.4-10.2) mg/dL Calcium panel 09/21/24 Range/Units 05:15 Calcium 8.1 L (8.4-10.2) mg/dL Phosphorus 5.4 H (2.5-4.5) mg/dL Pituitary panel 09/21/24 Range/Units 05:15 Sodium 137 (137-145) mmol/L Potassium 5.1 (3.5-5.1) mmol/L Chloride 103 (98-107) mmol/L Carbon Dioxide 18 L (22-30) mmol/L BUN 99 H (9-20) mg/dL Creatinine 1.58 H (0.66-1.25) mg/dL Glucose 228 H (74-99) mg/dL Calcium 8.1 L (8.4-10.2) mg/dL Adrenal panel 09/21/24 Range/Units 05:15 Sodium 137 (137-145) mmol/L Potassium 5.1 (3.5-5.1) mmol/L Chloride 103 (98-107) mmol/L Carbon Dioxide 18 L (22-30) mmol/L BUN 99 H (9-20) mg/dL Creatinine 1.58 H (0.66-1.25) mg/dL Glucose 228 H (74-99) mg/dL Calcium 8.1 L (8.4-10.2) mg/dL
--- NOTE | 2024-09-21 19:10 | P.PCN ---
Description of Procedure: Preop diagnosis is acute chronic failure, respiratory failure with tracheostomy intubated postop the same Procedure procedure intensive care unit right of the neck was prepped and draped in Prestel you Stahlman right carotid infected ultrasound-guided micropuncture introduced right jugular vein micropuncture guide was passed I could not advance the micropuncture guidewire tried twice patient has a right subclavian vein catheter placed Left groin was prepped and draped in Prestel manner ultrasound-guided micropuncture introduced left femoral vein micropuncture guide was passed and 4 Sinhala dilator advanced up the guidewire. Then we passed a regular guidewire without any resistance pushing the lateral wall on the top of the guidewire then we passed a regular guidewire and dilator was advanced. On the top of guidewire placed double-lumen dialysis catheter flushed with heparin saline hep-locked secured with 3-0 nylon dressing applied patient tarted the procedure well
--- NOTE | 2024-09-21 20:34 | P.PN ---
Progress Note - Text Progress Note Date: 09/21/24 Chief Complaint: Short of breath 49-year-old patient, follows with Dr. Murcia History of paraplegia, home vent at night, tracheostomy multiple admissions to the ICU for recurrent pneumonia. Patient's previous bronchial cultures been positive for Pseudomonas. He was discharged recently on IV cefepime. Also has a history of Crohn's disease with previous colectomy diverting ileostomy. History of DVT for which patient is on subcu Lovenox. Also had drug-resistant MRSA Pseudomonas. Patient currently does not have areas significant trach secretions. He has continues TPN. Has a right BKA. He does have slight movement in the right hand. Able to follow commands by nodding his head. Answering questions. He is scared by his elder son open. I was also the DPOA. August 30: Overnight patient started having more secretions through the tracheostomy. Vancomycin was added. Also blood pressure running low patient was put on Levophed drip. Otherwise sinus rhythm. Patient remains on the ventilator. Will also send off stool for C. difficile. Also patient IV cefepime. Getting TPN. August 31: ICU. Patient had positive fluid balance. Was given IV Lasix earlier. Remains on Levophed. Spiking fevers. Getting TPN. Stool negative for C. difficile. Patient is growing MDRO Pseudomonas aeruginosa. ID is ordered IV Zerbaxa. Which is currently not available. Patient's friend is visiting him in the ICU. Light trach secretion September 01: ICU. On the ventilator. FiO2 45%. PEEP of 5. Continues to have light trach secretions. Sputum cultures again growing Pseudomonas. Zerbaxa was obtained and resumed. Blood pressure running low. On Levophed. Patient's younger son at the bedside. Colostomy working fine. Has been spiking fevers. Cooling blanket. Ice packs. September 02: ICU. Ventilator FiO2 45%. PEEP of 5. Continues to have some trach secretions. IV Zerbaxa IV tobramycin. TPN lipids to continue. Also Levophed. Patient started cooling blankets since yesterday for temperatures. Along with the nurse speech therapy records were reviewed from last few admissions. Patient with multiple MBS and bedside swallow eval. No trouble with swallowing. Patient put on a chopped diet. Thin liquids. Patient did spike a fever of 101.7 earlier today. Low ionized calcium. IV gluconate given. September 03: ICU. On ventilator FiO2 45%. PEEP of 5. Mild trach secretions. Getting IV TPN lipids. IV tobramycin. Zerbaxa was substituted to Avycaz. By ID. No fever per se since yesterday. For blood pressure patient is also on Levophed and vasopressin. September 04: ICU. On ventilator FiO2 45%. PEEP of 5. Clear trach secretions. Getting IV TPN lipids. IV tobramycin. And IV Avycaz. Remains afebrile.. On Levophed and vasopressin. Awake. 09/06/2024 Patient is seen and evaluated in ICU; remains on mechanical ventilator, actually his home ventilator, with settings of volume assist-control, rate 20, tidal volume 450, FiO2 45%, PEEP of 5. - patient has been refusing blood; no ABGs to. He is getting lactated Ringer's at 50 cc an hour, TPN at 65 cc an hour. - patient remains on the same antibiotics. - Labs reviewed which reveal white count 5.21, hemoglobin 7.9, hematocrit 27.5, and platelet count 64,000. Sodium 141, potassium 3.5, chlorides 102, CO2 32, BUN 25, and creatinine 0.35. Glucose is 152. Calcium is 8. Albumin is 2.1. -Chest x-ray is largely unchanged. Critical care managing mechanical ventilation; recommending to add scopolamine patch for increased secretion -Patient remains on Avycaz and tobramycin - Continue with current TPN 09/07 Patient remains in the ICU lethargic. He is s/p tracheostomy Overnight he was more hypoxic they have to increase PEEP to 8. Also has a lot of secretions when needed for secretions suctioning to try to become apneic per Staff. Patient currently receiving Avycaz and tobramycin. on TPN also 09/08 Patient remains in the ICU awake and alert status post tracheostomy. He has contractures of both upper and lower extremities He is complaining from pain in his lungs. He is status post flexible bronchoscopy and bronchoalveolar lavage yesterday. He has previous sputum culture positive for Pseudomonas currently covered with ceftazidime and tobramycin. He is also on Lovenox 90 mg 09/09 Patient still in the ICU on mechanical ventilation via tracheostomy. PEEP is 8.0 as is yesterday Also he spiked little fever to 100.7. IV vancomycin is added to tobramycin and ceftazidime He is getting also bronchoscopy follow-up culture results 09/10 Patient feels clinically the same, he still getting breathing via mechanical ventilation through his tracheostomy with PEEP of 8. Patient feels he is required suctioning through his tracheostomy tube. He denies chest pain or pain anywhere else he can communicate by head signs and gestures. Hemodynamically stable and afebrile hemoglobin 7.4 platelet count 73 Glucose is controlled potassium 3.3 He remains on broad-spectrum antibiotic Rocephin at this time tobramycin and IV vancomycin added yesterday because he had low-grade fever. He is getting TPN. IV fluid Ringer lactate was stopped and patient was started on IV Lasix 20 mg 3 times a day continue with therapeutic dose of Lovenox as well 09/11 Patient remains in the ICU Remains on mechanical ventilation via tracheostomy He status post bronchoalveolar lavage 2 days ago, culture is growing Pseudomonas aeruginosa and corynebacterium Patient remains on broad-spectrum antibiotics with IV vancomycin, tobramycin, ceftazidime On IV Lasix also is on therapeutic dose of Lovenox 90 mg twice daily No IV fluids 09/12 Patient remains in the ICU Clinically close to what he was over the last 2 days still getting oxygen via his tracheostomy He remains on broad-spectrum antibiotic with Ceftin this time and IV vancomycin. Also he is on IV Lasix 20 mg and therapeutic dose of Lovenox. 09/13 Patient remains in the ICU on mechanical ventilation via tracheostomy Patient looks better today, he breathing better Less secretion Fentanyl patch increased 09/14. Patient seen and examined. Patient continues to be on mechanical ventilation via trach mask. Currently on TPN. Currently on IV Zerbaxa and vancomycin 09/15. Patient seen and examined.Vital signs done showed the patient overnight, heart rate 106, blood pressure 107/40, currently on ventilation. Labs reviewed showed WBC 7.27, hemoglobin 7.5, sodium 148 on potassium 4.3, BUN 23, creatinine 0.47 09/16. Patient seen and examined labs reviewed showing WBC 5.45, hemoglobin 9.6, platelet count 131, sodium 146, potassium 4.1, BUN 20, creatinine 0.47. Continue small amount of Levophed. Currently on Zerbaxa and vancomycin. Currently on TPN September 17: ICU. Patient has taken a turn for the worse today. Significant thick white secretions from the trach. Sinus rhythm. Receiving TPN. Patient is on Levophed and vasopressor. Rather high dose. FiO2 100 [address] PEEP of 10. Dr. Ho earlier spoke to the patient/family. Remains full code September 18: ICU. Intubated FiO2 70 PEEP of 12. Sinus rhythm. Drips include IV propofol at 50 and Levophed at 0.13. Patient is off vasopressin. Patient secretions. Family at the bedside. September 19: ICU. Intubated. FiO2 50 and a PEEP of 12. Drips include IV Levophed and propofol. Also started on Lasix drip 10 mg an hour yesterday. Secretions present. September 20: ICU. Intubated. FiO2 50 and a PEEP of 12. Hemoglobin 6.3. Secondary to blood being given. Patient been on and off Levophed. On propofol. Lipids have been held. Continues with TPN. Lasix drip was discontinued. Lovenox has been held because of low hemoglobin. Unable anemia is felt to be combination of regular blood draws and possible element element of hemolysis from all the infection. No dark stool. Family at the bedside September 21: ICU. Intubated. Received 2 units of blood yesterday. Hemoglobin 7.6 today. Per nephrology renal replacement therapy. Dialysis access placed by Dr. Cadena. Patient earlier today on Levophed. Propofol. Getting TPN. Sinus rhythm. Urine output decreased Active Medications Albuterol/Ipratropium (Ipratropium-Albuterol 3 Ml Neb) 3 ml INHALATION RT-Q4H PRN PRN Reason: shortness of breath Last Admin: 09/21/24 20:17 Dose: 3 ml Artificial Tears (Artificial Tears-Hypromellose Drops 15 Ml Btl) 1 drops BOTH EYES QID PRN PRN Reason: Dry Eye(s) Last Admin: 09/04/24 12:52 Dose: 1 drops Chlorhexidine Gluconate (Chlorhexidine Gluconate 15 Ml Cup) 15 ml MUCOUS MEM BID ANNIE Last Admin: 09/21/24 08:01 Dose: 15 ml Dextrose/Water (Dextrose 50% Syringe 50 Ml) 25 ml IVP PER PROTOCOL PRN; Protocol PRN Reason: Hypoglycemia Dextrose/Water (Dextrose 50% Syringe 50 Ml) 50 ml IVP PER PROTOCOL PRN; Protocol PRN Reason: Hypoglycemia Fentanyl (Fentanyl 100mcg/Hr Patch) 1 patch TRANSDERM Q72H ANNIE; Protocol Last Admin: 09/19/24 09:31 Dose: 1 patch Hydrocortisone Sodium Succinate (Hydrocortisone Succinate 100 Mg/2 Ml Vial) 50 mg IV Q12HR ANNIE Last Admin: 09/21/24 08:01 Dose: 50 mg Hydromorphone HCl (Hydromorphone 1 Mg/Ml 1 Ml Syringe) 1 mg IVP Q3H PRN PRN Reason: Pain Last Admin: 09/17/24 17:05 Dose: 1 mg Fat Emulsion Intravenous 250 (ml/ IV Solution) 250 mls @ 21 mls/hr IV Q72H ANNIE Last Admin: 09/17/24 10:15 Dose: 21 mls/hr Anidulafungin 100 mg/ Sodium (Chloride) 130 mls @ 84 mls/hr IVPB DAILY [facility]; Protocol Last Admin: 09/21/24 08:08 Dose: 84 mls/hr Propofol 1,000 mg/ IV Solution 100 mls @ 32.34 mls/hr IV .Q3H6M ANNIE; Protocol Last Admin: 09/21/24 19:56 Dose: 50 mcg/kg/min, 32.34 mls/hr Norepinephrine Bitartrate 8 mg (/ Sodium Chloride) 258 mls @ 6.513 mls/hr IV .Q24H ANNIE; Protocol Last Titration: 09/21/24 18:04 Dose: 0.02 mcg/kg/min, 4.342 mls/hr Parenteral Vitamin Supplement 10 ml/ Zinc/Copper/Manganese/Selenium 1 ml/ Sodium Acetate 70 meq/ Calcium Gluconate 0.5 gm/ Amino Acids/Dextrose 1,051 mls @ 75 mls/hr IV .BY DURATION [facility] Last Infusion: 09/21/24 06:24 Dose: Infused Sodium Acetate 70 meq/ Calcium Gluconate 0.5 gm/ Amino Acids /Dextrose 1,040 ml s @ 75 mls/hr IV .BY DURATION [facility] Last Admin: 09/21/24 06:45 Dose: 75 mls/hr Insulin Human Lispro (Insulin Lispro (Humalog) 100 Unit/Ml 10 Ml Vl) 0 unit SQ Q6HR ANNIE; Protocol Last Admin: 09/21/24 18:25 Dose: 2 unit Lorazepam (Lorazepam 1 Mg/0.5 Ml Vial) 0.5 mg IV Q6HR PRN PRN Reason: Anxiety Last Admin: 09/15/24 18:26 Dose: 0.5 mg Miscellaneous Information (Pneumonia Protocol Utilized 1 Each Misc) 1 each PO ONCE PRN PRN Reason: Per Protocol Miscellaneous Information (Potassium Replacement Protocol 1 Each Misc) 1 each MISCELLANE DAILY PRN; Protocol PRN Reason: Per Protocol Miscellaneous Information (Magnesium Replacement Protocol 1 Each Misc) 1 each MISCELLANE DAILY PRN; Protocol PRN Reason: Per Protocol Naloxone HCl (Naloxone 0.4 Mg/Ml 1 Ml Vial) 0.2 mg IV Q2M PRN PRN Reason: Opioid Reversal Nystatin (Nystatin 100,000 Unit/Gm Powd 15 Gm) 1 applic TOPICAL BID ANNIE; Protocol Last Admin: 09/21/24 08:08 Dose: 1 applic Ondansetron HCl (Ondansetron 4 Mg/2 Ml Vial) 4 mg IVP Q6HR PRN PRN Reason: Nausea And Vomiting Last Admin: 09/01/24 19:41 Dose: 4 mg Pantoprazole Sodium (Pantoprazole 40 Mg/10 Ml Vial) 40 mg IV DAILY ANNIE Last Admin: 09/21/24 08:01 Dose: 40 mg Petrolatum (Zinc Oxide Paste (Z-Guard) 1 Applic) 1 applic TOPICAL BID PRN; Protocol PRN Reason: Wound Healing Social history: Patient started smoking at the age of [age] 1 pack a day stopped in 2017. Nonambulatory. Is cared by his son over. Who is also the OA Physical examination: VITAL SIGNS: 96.2, 69, 36, 104 x 51, 96% underwent GENERAL:, sedated EYES: Pupils equal. Conjunctiva loan l. HEENT: External appearance of nose and ears normal, oral cavity dry NECK: JVD unable to assess; masses not palpable. Tracheostomy HEART: First and second heart sounds are normal; no edema. LUNGS: Respiratory rate increased, decreased breath sounds, some crackles ABDOMEN: Soft, nontender, liver spleen not palpable, no masses palpable. Double barrel ostomy. PSYCH: Able to answer questions by attempting to speak to normal. Not able phonate MUSCULOSKELETAL: Right BKA. Left foot drop. Left hand contracture. Right hand also with contracture but able to have some movements NEUROLOGICAL: Cranial nerves grossly intact; no facial asymmetry, slight movement in the right arm. Awake L INVESTIGATIONS, reviewed in the clinical context: September 18: White count 14.9 hemoglobin 7.6 ABG show pH of 7.2PCO2 of 68P O2 was 77 potassium was 6.1 repeat 5.2 creatinine 0.82 September 17: White count 20 hemoglobin 8.5 platelets 199 potassium 4.2 BUN 25 creatinine 0.4. ABG: pH 7.17 pCO2 79 PO277. September 02: White count 3.6 hemoglobin 9.7 platelets 130 potassium 3.9 BUN 23 creatinine 0.36 ionized calcium 4.3 TSH 2.7 Sputum culture: Pseudomonas aeruginosa: Sensitive to Zosyn, tobramycin, ceftazidime Sputum culture: Pseudomonas aeruginosa August 30: White count 3.5 hemoglobin 10.0 platelets 133 potassium 3.5 creatinine 0.36 August 29, 2024: White count 6.2 hemoglobin 12.3 platelets 216 sodium 128 potassium 3.1 BUN 50 creatinine 0.46 lactic acid 2.1 calcium 10.8 phosphorus 3.0 troponin I 0.016 UA: Negative for nitrite Influenza type A, type B, RSV, SARS-CoV-2: Not detected EKG tracing personally reviewed by me-normal sinus rhythm Chest x-ray film personally reviewed by me-right basilar infiltrate Previous labs: Sputum culture July 20, 2024: Pseudomonas aeruginosa Assessment plan: - basal pneumonia. Previous admission sputum was positive for Pseudomonas aeruginosa-:: Slow to respond Has received different antibiotics. Currently: Aniedulefungin IV, IV ceftolozane tazobactam, IV vancomycin Being followed by pulmonary, and ID - Fluid overload Wendy Lasix drip - Acute kidney injury from ATN from septic shock. Also consider vancomycin toxicity. Oliguric. Volume overload. Dialysis catheter placed by Dr. Cadena. For renal replacement therapy - Septic shock: Slow to respond Been on Levophed off-and-on. - Acute on chronic hypoxic and hypercapnic respiratory failure, vent dependent at night at home: Slow to respond On ventilator support - Tracheostomy with trach collar -Acute normocytic anemia of chronic disease and hospital-acquired anemia from blood draws and possible hemolysis from infection 2 units of blood given September 20. - Thrombocytopenia likely from sepsis Follow - Right below-knee amputation - Chronic quadriparesis. Including left foot drop. Left arm contracture. Some right hand contracture. Some movement in the right arm - Crohn's disease with double barrel ostomy bag in place since 09/2021 - TPN - Full code - DPOA, son BECKY For renal replacement therapy. Past Medical History Past Medical History: CVA/TIA, Deep Vein Thrombosis (DVT), Pneumonia Additional Past Medical History / Comment(s): Hx CVA in 2012, DVT R arm, Crohns. colostomy Bag placed in 09/2021. History of Any Multi-Drug Resistant Organisms: MRSA, Other MDRO Date of last positivie culture/infection: 07/20/24-Other MDRO; 12/14/23-MRSA MDRO Source:: Other MDRO - sputum, BAL; MRSA- nasal Past Surgical History: Bowel Resection, Cholecystectomy, Orthopedic Surgery Additional Past Surgical History / Comment(s): R BKA, trach with chronic home vent Past Anesthesia/Blood Transfusion Reactions: No Reported Reaction Additional Past Anesthesia/Blood Transfusion Reaction / Comment(s): recalled from previous admission Smoking Status: Never smoker
[2024-09-21 23:39] LABS: Glucose,Whole Blood 186 mg/dL (70-110)
[2024-09-22 00:04] LABS: Glucose,Whole Blood 200 mg/dL (70-110)
[2024-09-22 05:28] LABS: Glucose,Whole Blood 255 mg/dL (70-110)
[2024-09-22 06:15] LABS: Glucose,Whole Blood 238 mg/dL (70-110)
[2024-09-22 07:18] LABS: Basophils # (A) 0.01 10*3/uL (0.00-0.10); Basophils % (A) 0.1 %; Eosinophils # (A) 0.01 10*3/uL (0.04-0.35); Eosinophils % (A) 0.1 %; HCT 23.4 % (39.6-50.0); HGB 7.3 g/dL (13.0-17.0); Immature Platelet Fraction 9.0 % (1.1-6.1); Lymphocytes # (A) 0.75 10*3/uL (0.90-5.00); Lymphocytes % (A) 10.1 %; MCH 27.1 pg (27.0-32.0); MCHC 31.2 g/dL (32.0-37.0); MCV 87.0 fL (80.0-97.0); Monocytes # (A) 0.23 10*3/uL (0.20-1.00); Monocytes % (A) 3.1 %; Neutrophils # (A) 6.34 10*3/uL (1.80-7.70); Neutrophils % (A) 85.8 %; Platelet Count 114 10*3/uL (140-440); RBC 2.69 10*6/uL (4.40-5.60); RDW 20.4 % (11.5-14.5); WBC 7.40 10*3/uL (4.50-10.00)
--- NOTE | 2024-09-22 07:23 | XR ---
EXAMINATION TYPE: XR chest 1V portable DATE OF EXAM: 09/22/2024 5:39 AM COMPARISON: Multiple radiographs, with the most recent on TECHNIQUE: XR chest 1V portable Portable AP radiograph of the chest. CLINICAL INDICATION:Male, 49 years old with history of Mechanical ventilation; FINDINGS: Patient is rotated which limits evaluation. Lungs/Pleura: Small right pleural effusion. Similarly diffuse patchy airspace opacities throughout th e lungs. Most pronounced within the right lung base. No pneumothorax. Heart/mediastinum: Cardiomediastinal silhouette is enlarged. Musculoskeletal: No acute osseous pathology. Other findings: Surgical clips within the right supraclavicular region. Lines/Tubes: Tracheostomy cannula tip projecting over the trachea. Right subclavian approach central venous catheter with distal tip at the superior cavoatrial junction . IMPRESSION: Overall similar examination with diffuse patchy airspace opacities with small right pleural effusion. Findings may represent pulmonary edema and/or pneumonia. [facility], , 09/22/2024 7:21 AM
[2024-09-22 07:41] LABS: African American GFR (CKD) 51 (>60 ml/min/1.73 sqM); Anion Gap 15 mmol/L; Calcium 8.3 mg/dL (8.4-10.2); Carbon Dioxide 15 mmol/L (22-30); Chloride 104 mmol/L (98-107); Glucose 220 mg/dL (74-99); Magnesium 2.3 mg/dL (1.6-2.3); Non-African American GFR(CKD) 44 (>60 ml/min/1.73 sqM); Potassium 5.4 mmol/L (3.5-5.1); Sodium 134 mmol/L (137-145)
[2024-09-22 07:49] LABS: Blood Urea Nitrogen 110 mg/dL (9-20)
[2024-09-22] MEDS: CISATRACURIUM 2 MG/ML 5 ML VIAL IV ONE ×2 (09:41→10:07)
[2024-09-22 10:56] LABS: Hepatitis B Surface Antigen Nonreactive (Nonreactive)
[2024-09-22 10:57] LABS: Hepatitis B Surface AB- Quant 543.0 mIU/mL
[2024-09-22 11:24] LABS: Glucose,Whole Blood 153 mg/dL (70-110)
--- NOTE | 2024-09-22 11:43 | P.PN ---
Subjective Progress Note Date: 09/22/24 Principal diagnosis: Pneumonia. This is a 49-year-old white male familiar to my service, history of paraplegia, home vent dependent, history of tracheostomy, patient had multiple admissions to the ICU for recurrent episodes of pneumonia and respiratory failure requiring ventilatory support. On his last admission patient was eventually discharged home on a home ventilator, and this was back on 08/04/2024. Patient was discharged home with a PICC line, patient was in the ER yesterday on 08/28 for abnormal labs mostly low potassium and low sodium discharged home however he cam e back today complaining of shortness of breath, has been ventilator dependent all along. Chest x-ray showed basically bibasilar opacities/atelectasis, doubt pneumonia, the findings in the left lower lobe are chronic. Patient did have previous history of pneumonia involving the left lower lobe and he had multiple bronchoscopies in the past. Bronchial cultures and sputum cultures have been positive in the past for mostly Pseudomonas aeruginosa. Patient was seen in the ER today, and he is already on cefepime for empiric coverage for potential left lower lobe pneumonia, patient had abnormal electrolytes with relatively low sodium low potassium, no leukocytosis, normal renal profile, blood pressure was soft, and he was given fluid boluses. Lactic acid was 2.1, D-dimer is normal, patient was admitted, and this consult was initiated. 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 Patient was seen today on 08/30/2024, patient continues to have intermittent episodes of fever with Tmax of 102, patient required norepinephrine and he remains on norepinephrine at 0.04 mcg/kg/min remains on LR at 130 cc/h remains on his home ventilator at tidal volume of 450 rate of 20 FiO2 45% and PEEP of 5. Seems comfortable, not in distress, his WBC is 3.5 hemoglobin 10.0 electrolytes are normal renal profile is normal potassium is borderline low. Patient remains on cefepime, vancomycin was added because of his previous history of MRSA, and is on cefepime for previous history of pseudomonal infection and now that the patient may be septic it is more of a reason to broaden the spectrum of antibiotics coverage with cefepime and vancomycin. Sputum cultures and blood cultures are pending. Patient does have history of pseudomonal and history of MRSA infections, and I discontinued his Zithromax today replace Zithromax with vancomycin. Viral screen is negative Legionella antigen is negative. Chest x- ray is relatively unchanged continues to show bibasilar opacities atelectasis/pneumonia. Progress note dated August 31, 2024. The patient is seen today in room 252. The patient was admitted a couple days ago, to the intensive care unit. The patient is currently on mechanical ventilator, actually his home ventilator. He is on volume assist-control, rate 20, tidal volume 450, FiO2 45% PEEP of 5. The patient is getting lactated Ringer's at 130 cc an hour, TPN at 91 cc an hour, norepinephrine at 8 mcg/min. Doppler of the left upper extremity was negative. He continues on Zerbaxa, and vancomycin. We will check a procalcitonin level. Cultures thus far are negative. He does have a previous history of methicillin-resistant Staph aureus infection, and pseudomonal infections. White count was 2.21, hemoglobin 9.3, hematocrit 32, platelet count 1 61,000. D-dimer was 5.78. Sodium 132, potassium 4.3, chlorides 106, CO2 21, BUN 18, creatinine 0.28. Glucose was 141. Calcium 7.8. C. difficile study was negative. Urine Legionella antigen was negative. Microbiologic studies are currently negative. Chest x-ray shows bibasilar airspace opacities, possibly consistent with pneumonia. 09/01/24 - The patient is seen today in room 252. Admitted to the hospital and the intensive care unit on 08/29/2024. The patient is currently on mechanical ventilator, his one from home. He is on volume assist control, rate of 20, tidal volume of 450, FiO2 45% and PEEP of 5. He currently has LR running at 50 cc/h, TPN at 91 cc/h, Zerbaxa and tobramycin. Chest Xray done this morning showed stable airspace opacities. Cultures are positive for pseudomonas aeruginosa, awaiting sensitivities. WBCs 2.69, Hgb 8.9, Hct 31.5, PLT 153, Na 135, K 3.4, Cl 109, HCO3 19, BUN 22, Cr 0.34, Phos 2.4. 09/02/24 - He is seen today in room 252. Admitted to the hospital and ICU on 08/29/24. He continues on mechanical ventilator, his one from home. He remaines on volume assist control, rate of 20, tidal volume of 450, FiO2 45% and PEEP of 5. He continues to have LR running at 50 cc/h, TPN at 91 cc/h, norepinephrine at 0.13 mcg/kg/min, Zebraxa and Tobramycin. Chest XRay this morning showed stable airspace opacities. Continue to await sensitivity of pseudomonas sputum culture. Lab work shows WBCs 3.64, Hgb 9.7, Hct 33.5, PLT 130, Na 133, K 3.9, bicarb 21, BUN 23, Cr 0.36, Ca 7.8, Mg 2.4, Albumin 2.3. 09/03/24 - He is seen in room 252. Admitted to the hospital and ICU on 08/29/24. He continues on mechanical ventilator, his one from home. He remaines on volume assist control, rate of 20, tidal volume of 450, FiO2 45% and PEEP of 5. He continues to have LR running at 50 cc/h, TPN at 91 cc/h, norepinephrine at 0.24 mcg/kg/min, Avycaz and Tobramycin. Zebraxa was discontinued as there was no reported sensitivity to it. Lab work shows WBCs 9.40, Hgb 8.8, Hct 30.6, PLT 100, Na 130, K 3.6, bicarb 23, BUN 25, Cr 0.51, Ca 7.8, Ionized Ca 4.6, Phos 3.3, Mg 2.1, TSH 2.710 and random cortisol 13.1. 09/04/24 - He is seen in room 252. Admitted to the hospital and ICU on 08/29/24. He continues on mechanical ventilator, his one from home. He remaines on volume assist control, rate of 20, tidal volume of 450, FiO2 45% and PEEP of 5. He continues to have LR running at 50 cc/h, TPN at 91 cc/h, norepinephrine at 0.24 mcg/kg/min, Avycaz and Tobramycin. Lab work shows sodium 133, potassium 3.5, bicarb 24, BUN 27, creatinine 0.47, calcium 7.9, ionized calcium 4.6, magnesium 1.9, phosphorus 3.0, total bilirubin 1.7, AST 57, ALT 45, alkaline phosphatase 99. Progress note dated September 05, 2024. 49-year-old male well-known to our service. He is seen today in room 252. He continues on volume assist-control, rate 20, tidal 450, FiO2 45%, PEEP of 5. The patient has refused blood gases. Currently, he is getting TPN at 65 cc an hour, norepinephrine at 1 mcg/min, LR at 50 cc/h. Clinically, the patient is doing well. His chest x-ray remains about the same. Yesterday he was on a higher dose of norepinephrine, and also was on vasopressin. Both have been weaned off. Current labs include a sodium 136, potassium 4.1, chlorides 101, CO2 28, BUN 30, creatinine 0.37. Glucose 153. Albumin is 2.2. Previous sputum, from August 29 with positive for Pseudomonas aeruginosa. Chest x-ray is largely unchanged. Progress note dated September 06, 2024. 49-year-old male again seen today in the intensive care unit, room 252. He remains on mechanical ventilator, actually his home ventilator, with settings of volume assist-control, rate 20, tidal volume 450, FiO2 45%, PEEP of 5. No blood gases today. The patient has been refusing. He is getting lactated Ringer's at 50 cc an hour, TPN at 65 cc an hour. He continues on the same antibiotics. White count 5.21, hemoglobin 7.9, hematocrit 27.5, and platelet count 64,000. Sodium 141, potassium 3.5, chlorides 102, CO2 32, BUN 25, and creatinine 0.35. Glucose is 152. Calcium is 8. Albumin is 2.1. Chest x-ray is largely unchanged. Patient was seen today on 09/16/2024, patient is basically about the same. Hardly any improvement noted in the last few weeks since admission, patient remains intubated, mechanically ventilated, same ventilator settings, assist-control rate of 20 tidal volume 450 FiO2 60% and PEEP of 8 ABG was not done today, no easy access, attempted to place arterial lines in this patient, but could not pass a wire although the arteries including femoral artery and left brachial artery were easily cannulated. No further attempts made for arterial access. Patient remains on norepinephrine at 0.13 mcg/kg/min still on TPN at 75 cc/h still on Zerbaxa and vancomycin chest x-ray showed worsening today of bilateral infiltrates possibly some component of fluid overload and I recommended Lasix 20 mg IV push twice daily. Patient seems to be quite swollen and edematous. WBC count is 5.4 hemoglobin 7.6 electrolytes showed sodium of 146 potassium 4.1 BUN 20 creatinine 0.47 Patient was seen today on 09/17/2024, patient seems to be deteriorating steadily over the last 24 hours, he is developing profound hypotension requiring pressors in the form of Levophed at 0.4 mcg/kg/min he is also on vasopressin at 0.04 units/min he is on TPN at 75 cc/h hemoglobin is noted to be low at 6.9, patient has positive yeast in the blood/fungemia he is on fluconazole, this is being addressed by infectious disease on the case. Earlier ABG showed a pO2 of 77 pCO2 88 pH of 7.13, Vent settings were adjusted with increasing the rate to 36. He is now on tidal volume of 350 FiO2 100% PEEP is 10 and rate is 36. Another ABG is pending. But clearly patient is taking a downhill clinical course. Patient is quite septic, I will likely change his central line, and place a new central line in this patient today and remove the old central line/PICC line. Patient will receive a unit of packed RBCs for hemoglobin of 6.9. Considering the change in his overall clinical status, discussed his condition with son, would like to keep his dad as a full code, he is very well aware of the poor prognostic picture and how ill his dad is. Would like to keep him a full code. WBC count today is 20.03 hemoglobin 8.5, basic metabolic profile is normal BUN is 25 creatinine 0.4 total protein is 6.9 albumin is 1.9. Patient was seen today on 09/18/24, remains in the ICU, intubated and mechanically ventilated. Patient is still requiring assist-control rate of maximal ventilatory support with rate of 36 tidal volume increased today up to 400 FiO2 decreased from 100% to 70% PEEP remains at 12. Earlier ABG before changes were made at the FiO2 had been on tidal volume showed a pO2 of 77 pCO2 68 pH of 7.20. Patient is still requiring norepinephrine and I have been titrating the norepinephrine earlier this morning he is down to 0.18 from 0.46 yesterday micrograms per kilo per minute vasopressin is still at 0.04 units/min patient is on propofol at 50 mcg/kg/min Lasix drip at 20 mg/h and TPN at 75 cc/h. I am also treating the patient with vancomycin, Zerbaxa, and Eraxis was added to replace fluconazole yesterday by infectious disease specially with his positive blood cultures for Bella. Urine output is improving with the Lasix drip, he did not improve much with 1 dose of Lasix 60 mg IV push. Remains on Solu-Cortef at 100 mg IV push every 8 hours patient is in positive fluid balance about 6 L hence I decided to go with Lasix drip today. Labs today showed slight improvement in his WBC count down to 14.9 hemoglobin is 7.6, electrolytes are abnormal with a potassium of 6.1 BUN is 45 creatinine 0.82 chest x-ray continues show bilateral interstitial edema/infiltrates, could be cardiogenic or noncardiogenic pulmonary edema I believe it is mostly cardiogenic/related to fluid overload as he received significant fluids yesterday for low blood pressure. And he was not making much urine in the last 24 hours. Hence Lasix drip was started today. Patient was seen today on 09/19/2024, remains in the ICU, remains intubated and mechanically ventilated. Patient is on assist-control rate of 36 tidal volume 400 FiO2 65% and PEEP of 12. His ABG showed a pO2 of 142 pCO2 52 pH of 7.28, hence cut down his FiO2 down to 50%. The PEEP at 12. Patient remains hemodyn amically unstable, remains on norepinephrine at 0.08 mcg/kg/min, his vasopressin has been discontinued. TPN is at 75 cc/h. Remains on Lasix drip/infusion at 20 mg/h. He is on propofol at 50 mcg/kg/min remains on Solu-Cortef 50 mg every 8, Eraxis, Zerbaxa, vancomycin. Urine output is marginal at about 10 to 20 cc/h in spite of Lasix drip. Lovenox will be resumed today at 80 mg subcu twice daily. Patient is sedated, his overall clinical status is showing slight improvement compared to the clinical status couple of days ago. Chest x-ray continues to show evidence of interstitial edema although the possibility of ARDS is not entirely ruled out considering his overall septic picture. CBC is about the same with WBC of 7.7 hemoglobin 7.1. Platelets are 128,000. Basic metabolic profile is normal potassium is down to 5.2 BUN is 67 creatinine is slightly higher today 1.13. Blood sugar is 358. Patient was seen today on 09/20/2024, remains in the ICU intubated mechanically ventilated. On assist-control rate of 36 tidal volume 400 FiO2 50% PEEP of 12, no ABG done today, however his O2 saturation is in the high 90s about 98%. Patient had a low hemoglobin today and he will need a unit of blood/packed RBCs for low hemoglobin. No active bleeding noted, Hemoccult stools will be done t lizette. Patient remains on Eraxis and Zerbaxa, his vancomycin was discontinued remains on lower dose of Solu-Cortef 50 mg IV push every 12 hours. Continues to have poor urine output and his renal functioning is getting a bit worse. Nephrology was consulted, patient received initially significant amount of fluids for his presentation of sepsis, and he remained oliguric in spite of fluid boluses. Then he was placed on Lasix drip which initially was working fine, now that urine output is rather marginal and spite of Lasix drip at 20 mg an hour. I am recommending a trial of albumin followed by 80 mg of Lasix IV push. And hopefully his urine output will orange picking supervisor with the albumin and with the blood transfusion which is scheduled to be done soon. Vancomycin has been discontinued. Chest x-ray continues to show evidence of interstitial edema. Labs are reviewed his potassium is 5 bicarb is 20 BUN is 83 creatinine 1.49 platelets are 105 hemoglobin 6.3. Progress note dated September 21, 2024. The patient remains on volume assist-control, rate 36, tidal volume 400, FiO2 50%, PEEP of 12. Blood gases were not obtained. He continues on TPN at 75 cc an hour, propofol at 50 mcg/kg/min, saline at 10 cc an hour, and norepinephrine is currently on hold. Antibiotic douglas, he continues on vancomycin, and Eraxis. White count is 6.9, hemoglobin 7.6, hematocrit 24.3, and platelet count 115,000. Sodium 137, potassium 5.1, chlorides 103, CO2 18, anion gap 16, BUN 99, creatinine 1.58. Glucose is 228. Calcium 8.1, phosphorus 5.4, magnesium 2.5. Culture data shows evidence of Pseudomonas aeruginosa back on August 29, Pseudomonas in the bronchial washings on September 07, and blood cultures positive, September 18, currently pending. Chest x-ray is largely unchanged, shows patchy diffuse airspace opacities, with a small right-sided pleural effusion. Progress note dated September 22, 2024. The patient is seen today in room 252. He remains on volume assist-control. Settings include volume assist-control 36, tidal volume 400, FiO2 50%, PEEP of 12. He is getting propofol at 50 mcg/kg/min, norepinephrine at 3 mcg/min, and TPN at 75 cc an hour. He is having hemodialysis today. The goal is removal of 1 to 2 L of fluid. He continues on Eraxis. We were able to place a right radial arterial line. We will repeat a blood gas, after hemodialysis. Current laboratory data includes a white count 7.4, hemoglobin 7.3, hematocrit 23.4, and a platelet count of 114,000. Sodium 134, potassium 5.4, chlorides 104, CO2 15, anion gap 15, BUN 110, creatinine 1.79. Glucose is 153. Calcium is 8.3. Previous blood in sputum sampling, showed evidence of Pseudomonas aeruginosa. The patient also has previous blood culture showing evidence of Bella species. Chest x-ray today is largely unchanged. Objective - Vital Signs Vital signs: Vital Signs Temp 97.5 F L 09/22/24 08:00 Pulse 66 09/22/24 11:30 Resp 36 H 09/22/24 11:30 BP 119/61 09/22/24 11:30 Pulse Ox 100 09/22/24 11:30 FiO2 50 09/22/24 11:34 Intake & Output 09/21/24 09/22/24 09/22/24 18:59 06:59 18:59 Intake Total 1748.131 2995.704 440 Output Total 25 38 763 Balance 7681.205 9964.704 -323 Weight 113.3 kg Intake: IV 1056 1232 440 0.9 120 140 50 Pressure Bag 36 42 15 TPN 900 1050 375 Intake, IV Titration 493.969 396.704 Amount Anidulafungin 100 mg In 100 Sodium Chloride 0.9% 100 ml @ 84 mls/hr IVPB DAILY ANNIE Rx#:[id number] Norepinephrine 8 mg In 21.204 Sodium Chloride 0.9% 250 ml @ 0.03 MCG/KG/MIN 6. 513 mls/hr IV .Q24H ANNIE Rx#:[id number] propofoL 1,000 mg In 372.765 396.704 Empty Bag 1 bag @ 50 MCG/ KG/MIN 32.34 mls/hr IV . Q3H6M ANNIE Rx#:[id number] Output: Urine 25 38 13 Stool 750 Other: Voiding Method Indwelling Catheter Indwelling Catheter ABP, PAP, CO, CI - Last Documented Arterial Blood Pressure 100/44 - Exam No acute distress, currently connected to the ventilator. He has a tracheostomy tube in place. HEENT examination is grossly unremarkable. Mucous membranes are moist. No oral lesions. Neck supple. Full range of motion. No adenopathy thyromegaly or neck vein distention. Cardiovascular examination reveals regular rhythm rate. S1-S2 normal. No S3 or S4. No discernible murmur noted. Lungs reveal scattered rhonchi and crackles. No wheezes. Breath sounds equal bilaterally. Abdomen reveals an enterocutaneous fistula, normal bowel sounds. No tenderness. No masses. Extremities are intact. No cyanosis clubbing or edema. Right below the knee amputation. Skin is without rash or lesion. Neurologic examination is brief but nonfocal. He does have significant muscle atrophy, and contractures. He has a right below the knee amputation. - Labs CBC & Chem 7: 09/22/24 05:40 09/22/24 05:40 Labs: Abnormal Lab Results - Last 24 Hours (Table) 09/21/24 09/21/24 09/21/24 Range/Units 13:16 16:35 18:04 RBC (4.40-5.60) 10*6/uL Hgb (13.0-17.0) g/dL Hct (39.6-50.0) % MCHC (32.0-37.0) g/dL Plt Count (140-440) 10*3/uL MPV (9.5-12.2) fL Immature Gran # (0.00-0.04) 10*3/uL Lymphocytes # (0.90-5.00) 10*3/uL Eosinophils # (0.04-0.35) 10*3/uL Immature Plt Fraction (1.1-6.1) % ABG pH 7.19 L* (7.35-7.45) ABG pCO2 55 H (35-45) mmHg ABG pO2 62 L (83-108) mmHg ABG O2 Saturation 88.0 L (94-97) % Sodium (137-145) mmol/L Potassium (3.5-5.1) mmol/L Carbon Dioxide (22-30) mmol/L BUN (9-20) mg/dL Creatinine (0.66-1.25) mg/dL Glucose (74-99) mg/dL POC Glucose (mg/dL) 249 H 245 H (70-110) mg/dL Calcium (8.4-10.2) mg/dL Phosphorus (2.5-4.5) mg/dL Hep Bs Antibody (Negative) 09/21/24 09/22/24 09/22/24 Range/Units 23:37 00:02 05:26 RBC (4.40-5.60) 10*6/uL Hgb (13.0-17.0) g/dL Hct (39.6-50.0) % MCHC (32.0-37.0) g/dL Plt Count (140-440) 10*3/uL MPV (9.5-12.2) fL Immature Gran # (0.00-0.04) 10*3/uL Lymphocytes # (0.90-5.00) 10*3/uL Eosinophils # (0.04-0.35) 10*3/uL Immature Plt Fraction (1.1-6.1) % ABG pH (7.35-7.45) ABG pCO2 (35-45) mmHg ABG pO2 (83-108) mmHg ABG O2 Saturation (94-97) % Sodium (137-145) mmol/L Potassium (3.5-5.1) mmol/L Carbon Dioxide (22-30) mmol/L BUN (9-20) mg/dL Creatinine (0.66-1.25) mg/dL Glucose (74-99) mg/dL POC Glucose (mg/dL) 186 H 200 H 255 H (70-110) mg/dL Calcium (8.4-10.2) mg/dL Phosphorus (2.5-4.5) mg/dL Hep Bs Antibody (Negative) 09/22/24 09/22/24 09/22/24 Range/Units 05:40 05:40 05:40 RBC 2.69 L (4.40-5.60) 10*6/uL Hgb 7.3 L (13.0-17.0) g/dL Hct 23.4 L (39.6-50.0) % MCHC 31.2 L (32.0-37.0) g/dL Plt Count 114 L (140-440) 10*3/uL MPV 13.6 H (9.5-12.2) fL Immature Gran # 0.06 H (0.00-0.04) 10*3/uL Lymphocytes # 0.75 L (0.90-5.00) 10*3/uL Eosinophils # 0.01 L (0.04-0.35) 10*3/uL Immature Plt Fraction 9.0 H (1.1-6.1) % ABG pH (7.35-7.45) ABG pCO2 (35-45) mmHg ABG pO2 (83-108) mmHg ABG O2 Saturation (94-97) % Sodium 134 L (137-145) mmol/L Potassium 5.4 H (3.5-5.1) mmol/L Carbon Dioxide 15 L (22-30) mmol/L BUN 110 H* (9-20) mg/dL Creatinine 1.79 H (0.66-1.25) mg/dL Glucose 220 H (74-99) mg/dL POC Glucose (mg/dL) (70-110) mg/dL Calcium 8.3 L (8.4-10.2) mg/dL Phosphorus 6.5 H (2.5-4.5) mg/dL Hep Bs Antibody A (Negative) 09/22/24 09/22/24 Range/Units 06:13 11:21 RBC (4.40-5.60) 10*6/uL Hgb (13.0-17.0) g/dL Hct (39.6-50.0) % MCHC (32.0-37.0) g/dL Plt Count (140-440) 10*3/uL MPV (9.5-12.2) fL Immature Gran # (0.00-0.04) 10*3/uL Lymphocytes # (0.90-5.00) 10*3/uL Eosinophils # (0.04-0.35) 10*3/uL Immature Plt Fraction (1.1-6.1) % ABG pH (7.35-7.45) ABG pCO2 (35-45) mmHg ABG pO2 (83-108) mmHg ABG O2 Saturation (94-97) % Sodium (137-145) mmol/L Potassium (3.5-5.1) mmol/L Carbon Dioxide (22-30) mmol/L BUN (9-20) mg/dL Creatinine (0.66-1.25) mg/dL Glucose (74-99) mg/dL POC Glucose (mg/dL) 238 H 153 H (70-110) mg/dL Calcium (8.4-10.2) mg/dL Phosphorus (2.5-4.5) mg/dL Hep Bs Antibody (Negative) Assessment and Plan Assessment: Septic shock, likely secondary to Pseudomonas pneumonia, or urinary tract infection. Probable fungemia, currently on Eraxis. Chronic hypoxemic and hypercapnic respiratory failure, ventilator dependent, on a home ventilator, S/P tracheostomy. Left lower lobe atelectasis, possible pneumonia, with pseudomonal infection. History of severe tracheal stenosis, S/P tracheostomy. History of recurrent pneumonia, involving the left lower lobe. Tracheobronchomalacia. History of DVT. History of CVA. History of right below-knee amputation. Previous history of asystole/cardiac arrest, 2021. History of Crohn's disease, S/P enterocutaneous fistula, diverting ileostomy. Plan: Plan dated August 31, 2024. The patient is seen today in room 252. The patient's weight had on fluids, and the lactated Ringer's is cut back to 40 cc an hour. The patient will get 1 dose of Lasix IV push. Ventilator settings are noted. No blood gases today. It was apparently refused by the patient. Doppler of the left upper extremity was negative for DVT. Will check a procalcitonin level. The patient continues on norepinephrine at 8 mcg/min. He is getting TPN at 91 cc an hour. We will continue to follow make recommendations along the way. Labs, x-rays, and all medications are reviewed. Prognosis is certainly guarded. Dictation was produced using [employer] software. Please excuse any grammatical, word or spelling errors. Plan dated September 05, 2024. The patient is seen today in room 252. He is connected to his home mechanical ventilator. Settings of the same and include volume assist-control, rate 20, tidal volume 450, FiO2 45%, PEEP of 5. The patient is getting TPN at 65 cc an hour, norepinephrine has been weaned down to 1 mcg/min. He is getting lactated Ringer's at 50 cc an hour. He continues on Avycaz and tobramycin. We will continue to follow make recommendations. The patient also continues on hydrocortisone, for relative adrenal insufficiency. Prognosis is certainly guarded. We will continue to follow. Dictation was produced using [employer] software. Please excuse any grammatical, word or spelling errors. Plan dated September 06, 2024. The patient is seen today in room 252. He continues on mechanical ventilation. The patient is having increased secretions. Will add a scopolamine patch. He continues on Avycaz, and tobramycin. In addition, he continues on TPN at 65 cc an hour, and lactated Ringer's at 50 cc an hour. All labs, x-rays, and medications are reviewed. Chest x-ray is unchanged. We will continue to follow make recommendations. Prognosis is guarded. Dictation was produced using [employer] software. Please excuse any grammatical, word or spelling errors. Progress note dated September 21, 2024. The patient is again seen today in room 252, with presumed ongoing sepsis. The patient has norepinephrine on standby, for blood pressure support, and recently was maxed out on multiple vasopressors. Currently, the patient continues on Eraxis, and vancomycin. The patient also continues on TPN at 75 cc an hour, propofol at 50 mcg/kg/min. All labs, x-rays, medications are reviewed. The patient's overall prognosis remains very poor. We will continue to follow. He remains a full code. Dictation was produced using [employer] software. Please excuse any grammatical, word or spelling errors. Progress note dated September 22, 2024. The patient was seen to get her up to 52. We were able to place a right radial art line in the patient. There was good blood return from the arterial line, although the waveform was dampened. The patient continues on appropriate medications, including propofol at 50 mcg/kg/min, norepinephrine at 3 mcg/min. The patient is also getting TPN at 75 cc an hour. He is receiving hemodialysis today. He continues on Eraxis. After hemodialysis, the patient will have a arterial blood gas. Additional recommendations and suggestions are forthcoming. Prognosis is guarded. All labs, x-rays, and medications are reviewed. We will continue to follow the patient, make recommendations. Dictation was produced using [employer] dictation software. Please excuse any grammatical, word or spelling errors. Time with Patient: Greater than 30
--- NOTE | 2024-09-22 13:03 | P.PN ---
Subjective Patient is seen for follow-up for acute kidney injury. Currently on the vent. Status post temporary dialysis catheter placement yesterday. Levophed at 0.01 mcg/kg No significant urine output FiO2 at 50% Seen on hemodialysis today. Tolerating treatment fairly okay Objective - Vital Signs Vital signs: Vital Signs Temp 97.5 F L 09/22/24 08:00 Pulse 66 09/22/24 11:30 Resp 36 H 09/22/24 11:30 BP 119/61 09/22/24 11:30 Pulse Ox 100 09/22/24 11:30 FiO2 50 09/22/24 11:34 Intake & Output 09/21/24 09/22/24 09/22/24 18:59 06:59 18:59 Intake Total 2603.183 3687.704 440 Output Total 25 38 763 Balance 5826.640 6382.704 -323 Weight 113.3 kg Intake: IV 1056 1232 440 0.9 120 140 50 Pressure Bag 36 42 15 TPN 900 1050 375 Intake, IV Titration 493.969 396.704 Amount Anidulafungin 100 mg In 100 Sodium Chloride 0.9% 100 ml @ 84 mls/hr IVPB DAILY ANNIE Rx#:[id number] Norepinephrine 8 mg In 21.204 Sodium Chloride 0.9% 250 ml @ 0.03 MCG/KG/MIN 6. 513 mls/hr IV .Q24H ANNIE Rx#:[id number] propofoL 1,000 mg In 372.765 396.704 Empty Bag 1 bag @ 50 MCG/ KG/MIN 32.34 mls/hr IV . Q3H6M ANNIE Rx#:[id number] Output: Urine 25 38 13 Stool 750 Other: Voiding Method Indwelling Catheter Indwelling Catheter ABP, PAP, CO, CI - Last Documented Arterial Blood Pressure 100/44 - Exam Patient is on the vent Examination of the heart S1 and S2 Tracheostomy noted Examination of the lungs bilateral breath sounds are heard Abdomen is distended Examination of lower extremities shows left BKA and significant edema in the right leg as well as scrotal edema noted. - Labs CBC & Chem 7: 09/22/24 05:40 09/22/24 05:40 Labs: Abnormal Lab Results - Last 24 Hours (Table) 09/21/24 09/21/24 09/21/24 Range/Units 13:16 16:35 18:04 RBC (4.40-5.60) 10*6/uL Hgb (13.0-17.0) g/dL Hct (39.6-50.0) % MCHC (32.0-37.0) g/dL Plt Count (140-440) 10*3/uL MPV (9.5-12.2) fL Immature Gran # (0.00-0.04) 10*3/uL Lymphocytes # (0.90-5.00) 10*3/uL Eosinophils # (0.04-0.35) 10*3/uL Immature Plt Fraction (1.1-6.1) % ABG pH 7.19 L* (7.35-7.45) ABG pCO2 55 H (35-45) mmHg ABG pO2 62 L (83-108) mmHg ABG O2 Saturation 88.0 L (94-97) % Sodium (137-145) mmol/L Potassium (3.5-5.1) mmol/L Carbon Dioxide (22-30) mmol/L BUN (9-20) mg/dL Creatinine (0.66-1.25) mg/dL Glucose (74-99) mg/dL POC Glucose (mg/dL) 249 H 245 H (70-110) mg/dL Calcium (8.4-10.2) mg/dL Phosphorus (2.5-4.5) mg/dL Hep Bs Antibody (Negative) 09/21/24 09/22/24 09/22/24 Range/Units 23:37 00:02 05:26 RBC (4.40-5.60) 10*6/uL Hgb (13.0-17.0) g/dL Hct (39.6-50.0) % MCHC (32.0-37.0) g/dL Plt Count (140-440) 10*3/uL MPV (9.5-12.2) fL Immature Gran # (0.00-0.04) 10*3/uL Lymphocytes # (0.90-5.00) 10*3/uL Eosinophils # (0.04-0.35) 10*3/uL Immature Plt Fraction (1.1-6.1) % ABG pH (7.35-7.45) ABG pCO2 (35-45) mmHg ABG pO2 (83-108) mmHg ABG O2 Saturation (94-97) % Sodium (137-145) mmol/L Potassium (3.5-5.1) mmol/L Carbon Dioxide (22-30) mmol/L BUN (9-20) mg/dL Creatinine (0.66-1.25) mg/dL Glucose (74-99) mg/dL POC Glucose (mg/dL) 186 H 200 H 255 H (70-110) mg/dL Calcium (8.4-10.2) mg/dL Phosphorus (2.5-4.5) mg/dL Hep Bs Antibody (Negative) 09/22/24 09/22/24 09/22/24 Range/Units 05:40 05:40 05:40 RBC 2.69 L (4.40-5.60) 10*6/uL Hgb 7.3 L (13.0-17.0) g/dL Hct 23.4 L (39.6-50.0) % MCHC 31.2 L (32.0-37.0) g/dL Plt Count 114 L (140-440) 10*3/uL MPV 13.6 H (9.5-12.2) fL Immature Gran # 0.06 H (0.00-0.04) 10*3/uL Lymphocytes # 0.75 L (0.90-5.00) 10*3/uL Eosinophils # 0.01 L (0.04-0.35) 10*3/uL Immature Plt Fraction 9.0 H (1.1-6.1) % ABG pH (7.35-7.45) ABG pCO2 (35-45) mmHg ABG pO2 (83-108) mmHg ABG O2 Saturation (94-97) % Sodium 134 L (137-145) mmol/L Potassium 5.4 H (3.5-5.1) mmol/L Carbon Dioxide 15 L (22-30) mmol/L BUN 110 H* (9-20) mg/dL Creatinine 1.79 H (0.66-1.25) mg/dL Glucose 220 H (74-99) mg/dL POC Glucose (mg/dL) (70-110) mg/dL Calcium 8.3 L (8.4-10.2) mg/dL Phosphorus 6.5 H (2.5-4.5) mg/dL Hep Bs Antibody A (Negative) 09/22/24 09/22/24 Range/Units 06:13 11:21 RBC (4.40-5.60) 10*6/uL Hgb (13.0-17.0) g/dL Hct (39.6-50.0) % MCHC (32.0-37.0) g/dL Plt Count (140-440) 10*3/uL MPV (9.5-12.2) fL Immature Gran # (0.00-0.04) 10*3/uL Lymphocytes # (0.90-5.00) 10*3/uL Eosinophils # (0.04-0.35) 10*3/uL Immature Plt Fraction (1.1-6.1) % ABG pH (7.35-7.45) ABG pCO2 (35-45) mmHg ABG pO2 (83-108) mmHg ABG O2 Saturation (94-97) % Sodium (137-145) mmol/L Potassium (3.5-5.1) mmol/L Carbon Dioxide (22-30) mmol/L BUN (9-20) mg/dL Creatinine (0.66-1.25) mg/dL Glucose (74-99) mg/dL POC Glucose (mg/dL) 238 H 153 H (70-110) mg/dL Calcium (8.4-10.2) mg/dL Phosphorus (2.5-4.5) mg/dL Hep Bs Antibody (Negative) Assessment and Plan Assessment: 1. Acute kidney injury secondary to ATN secondary to septic shock. Also concern for vancomycin toxicity. Vancomycin level 49.3 on 09/19/2024. Patient remains oliguric with significant volume overload noted. Started hemodialysis on 09/22/2024. 2. Septic shock secondary to pneumonia and fungemia. Currently off Levophed. 3. Acute blood loss anemia with hemoglobin of 6.3 today. Currently receiving a unit of blood. 4. Volume overload. 5. Chronic hypoxic and hypercapnic respiratory failure, home ventilator dependent. 6. History of cardiac arrest. 8. Status post right BKA. Plan: Dialysis today and repeat in a.m. Continue antibiotics and antifungal treatment as per ID Continue with TPN Monitor electrolytes.
--- NOTE | 2024-09-22 13:32 | OP ---
OPERATIVE REPORT DATE OF SERVICE : PROCEDURE: Right radial art line. PREOPERATIVE DIAGNOSIS: Frequent blood draws and blood gas monitoring. POSTOPERATIVE DIAGNOSIS: Frequent blood draws and blood gas monitoring. INDICATIONS: There was informed consent and universal timeout. The patient's procedure took place in room 252. FIRST [employer] HARDWARE ASSEMBLER: Dr. Arenas. DESCRIPTION OF THE PROCEDURE: Indications: Hemodynamic monitoring. A time-out was completed verifying correct patient, procedure, site, positioning, and implant(s) or special equipment if applicable. Issa's test was performed to ensure adequate perfusion. The patient's right wrist or right groin was prepped and draped in sterile fashion. 1% Lidocaine was used to anesthetize the area. An 18G Arrow arterial line was introduced into the radial/femoral artery. The catheter was threaded over the guide wire and the needle was removed with appropriate pulsatile blood return. Blood loss was minimal. The catheter was then sutured in place to the skin and a sterile dressing applied. Perfusion to the extremity distal to the point of catheter insertion was checked and found to be adequate. The patient tolerated the procedure well and there were no complications. There was good blood return and a tamp and waveform. The catheter was sutured in place. A sterile dressing was applied by the nurse. There was no immediate complication. The patient tolerated the procedure well. MMODL / IJN: [id number] /
[2024-09-22] MEDS: [UNRECOGNIZED DRUG - REMARK] IV SCH (13:45)
[2024-09-22 14:18] LABS: ABG HCO3 24 mmol/L (21-25); ABG PCO2 42 mmHg (35-45); ABG PH 7.36 (7.35-7.45); ABG PO2 126 mmHg (83-108); ABG TCO2 25 mmol/L (19-24); Allen Test Performed? Yes
--- NOTE | 2024-09-22 16:43 | P.PN ---
Subjective Progress Note Date: 09/22/24 Principal diagnosis: Reason for follow-up is sepsis and pneumonia/candidemia Patient is a 49-year-old male with a past medical history significant for CVA TIA DVT pneumonia history of complicated Crohn's disease in this patient who did have multiple abdominal surgeries patient also have a tracheostomy has been brought to the hospital with Generalized weakness did have a fever concerning for pneumonia on today's evaluation that is 09/22/2024, Patient is afebrile this morning patient remains to be intubated on the vent through the trach FiO2 is down to 40% patient is requiring low-dose pressor support did have a low urine output also noted to have elevated BUN and creatinine 1.79 no diarrhea has been reported. Patient white count 7.40 blood culture repeat from 09/18/2024 also positive for Bella Objective - Vital Signs Vital signs: Vital Signs Temp 36.4 F L 09/22/24 16:07 Pulse 67 09/22/24 16:07 Resp 36 H 09/22/24 16:07 BP 109/54 09/22/24 16:07 Pulse Ox 100 09/22/24 16:07 FiO2 40 09/22/24 15:27 Intake & Output 09/21/24 09/22/24 09/22/24 18:59 06:59 18:59 Intake Total 3895.426 0774.704 1404 Output Total 25 38 3274 Balance 5464.620 2276.704 -1870 Weight 113.3 kg 113.3 kg Intake: IV 1056 1232 804 0.9 120 140 90 Pressure Bag, CVP and ART 36 42 39 TPN 900 1050 675 Intake, IV Titration 493.969 396.704 100 Amount Anidulafungin 100 mg In 100 Sodium Chloride 0.9% 100 ml @ 84 mls/hr IVPB DAILY ANNIE Rx#:[id number] Norepinephrine 8 mg In 21.204 Sodium Chloride 0.9% 250 ml @ 0.03 MCG/KG/MIN 6. 513 mls/hr IV .Q24H ANNIE Rx#:[id number] propofoL 1,000 mg In 372.765 396.704 100 Empty Bag 1 bag @ 50 MCG/ KG/MIN 32.34 mls/hr IV . Q3H6M ANNIE Rx#:[id number] Hemodialysis 500 Output: Urine 25 38 24 Stool 750 Hemodialysis 1500 Hemodialysis Net Amount 1000 Other: Voiding Method Indwelling Catheter Indwelling Catheter Indwelling Catheter ABP, PAP, CO, CI - Last Documented Arterial Blood Pressure 100/44 - Exam GENERAL DESCRIPTION: Middle-age male intubated on the vent RESPIRATORY SYSTEM: Unlabored breathing , decreased breath sounds at bases HEART: S1 S2 regular rate and rhythm , ABDOMEN: Soft , no tenderness EXTREMITIES: Swelling to the leg - Labs CBC & Chem 7: 09/22/24 05:40 09/22/24 05:40 Labs: Abnormal Lab Results - Last 24 Hours (Table) 09/21/24 09/21/24 09/21/24 Range/Units 16:35 18:04 23:37 RBC (4.40-5.60) 10*6/uL Hgb (13.0-17.0) g/dL Hct (39.6-50.0) % MCHC (32.0-37.0) g/dL Plt Count (140-440) 10*3/uL MPV (9.5-12.2) fL Immature Gran # (0.00-0.04) 10*3/uL Lymphocytes # (0.90-5.00) 10*3/uL Eosinophils # (0.04-0.35) 10*3/uL Immature Plt Fraction (1.1-6.1) % ABG pH 7.19 L* (7.35-7.45) ABG pCO2 55 H (35-45) mmHg ABG pO2 62 L (83-108) mmHg ABG Total CO2 (19-24) mmol/L ABG O2 Saturation 88.0 L (94-97) % Hemoglobin (13.0-17.5) gm/dL Sodium (137-145) mmol/L Potassium (3.5-5.1) mmol/L Carbon Dioxide (22-30) mmol/L BUN (9-20) mg/dL Creatinine (0.66-1.25) mg/dL Glucose (74-99) mg/dL POC Glucose (mg/dL) 245 H 186 H (70-110) mg/dL Calcium (8.4-10.2) mg/dL Phosphorus (2.5-4.5) mg/dL Hep Bs Antibody (Negative) 07/08/25 07/08/25 07/08/25 Range/Units 00:02 05:26 05:40 RBC (4.40-5.60) 10*6/uL Hgb (13.0-17.0) g/dL Hct (39.6-50.0) % MCHC (32.0-37.0) g/dL Plt Count (140-440) 10*3/uL MPV (9.5-12.2) fL Immature Gran # (0.00-0.04) 10*3/uL Lymphocytes # (0.90-5.00) 10*3/uL Eosinophils # (0.04-0.35) 10*3/uL Immature Plt Fraction (1.1-6.1) % ABG pH (7.35-7.45) ABG pCO2 (35-45) mmHg ABG pO2 (83-108) mmHg ABG Total CO2 (19-24) mmol/L ABG O2 Saturation (94-97) % Hemoglobin (13.0-17.5) gm/dL Sodium (137-145) mmol/L Potassium (3.5-5.1) mmol/L Carbon Dioxide (22-30) mmol/L BUN (9-20) mg/dL Creatinine (0.66-1.25) mg/dL Glucose (74-99) mg/dL POC Glucose (mg/dL) 200 H 255 H (70-110) mg/dL Calcium (8.4-10.2) mg/dL Phosphorus (2.5-4.5) mg/dL Hep Bs Antibody A (Negative) 09/22/24 09/22/24 09/22/24 Range/Units 05:40 05:40 06:13 RBC 2.69 L (4.40-5.60) 10*6/uL Hgb 7.3 L (13.0-17.0) g/dL Hct 23.4 L (39.6-50.0) % MCHC 31.2 L (32.0-37.0) g/dL Plt Count 114 L (140-440) 10*3/uL MPV 13.6 H (9.5-12.2) fL Immature Gran # 0.06 H (0.00-0.04) 10*3/uL Lymphocytes # 0.75 L (0.90-5.00) 10*3/uL Eosinophils # 0.01 L (0.04-0.35) 10*3/uL Immature Plt Fraction 9.0 H (1.1-6.1) % ABG pH (7.35-7.45) ABG pCO2 (35-45) mmHg ABG pO2 (83-108) mmHg ABG Total CO2 (19-24) mmol/L ABG O2 Saturation (94-97) % Hemoglobin (13.0-17.5) gm/dL Sodium 134 L (137-145) mmol/L Potassium 5.4 H (3.5-5.1) mmol/L Carbon Dioxide 15 L (22-30) mmol/L BUN 110 H* (9-20) mg/dL Creatinine 1.79 H (0.66-1.25) mg/dL Glucose 220 H (74-99) mg/dL POC Glucose (mg/dL) 238 H (70-110) mg/dL Calcium 8.3 L (8.4-10.2) mg/dL Phosphorus 6.5 H (2.5-4.5) mg/dL Hep Bs Antibody (Negative) 09/22/24 09/22/24 Range/Units 11:21 14:16 RBC (4.40-5.60) 10*6/uL Hgb (13.0-17.0) g/dL Hct (39.6-50.0) % MCHC (32.0-37.0) g/dL Plt Count (140-440) 10*3/uL MPV (9.5-12.2) fL Immature Gran # (0.00-0.04) 10*3/uL Lymphocytes # (0.90-5.00) 10*3/uL Eosinophils # (0.04-0.35) 10*3/uL Immature Plt Fraction (1.1-6.1) % ABG pH (7.35-7.45) ABG pCO2 (35-45) mmHg ABG pO2 126 H (83-108) mmHg ABG Total CO2 25 H (19-24) mmol/L ABG O2 Saturation 99.4 H (94-97) % Hemoglobin 8.1 L (13.0-17.5) gm/dL Sodium (137-145) mmol/L Potassium (3.5-5.1) mmol/L Carbon Dioxide (22-30) mmol/L BUN (9-20) mg/dL Creatinine (0.66-1.25) mg/dL Glucose (74-99) mg/dL POC Glucose (mg/dL) 153 H (70-110) mg/dL Calcium (8.4-10.2) mg/dL Phosphorus (2.5-4.5) mg/dL Hep Bs Antibody (Negative) Microbiology - Last 24 Hours (Table) 09/18/24 09:45 Blood Culture Gram Stain - Final Blood Blood Culture - Final Bella parapsilosis group Molecular ID Assessment and Plan (1) Pneumonia Current Visit: Yes Status: Acute Code(s): J18.9 - PNEUMONIA, UNSPECIFIED ORGANISM SNOMED Code(s): 059387718 (2) Sepsis Current Visit: Yes Status: Acute Code(s): A41.9 - SEPSIS, UNSPECIFIED ORGANISM SNOMED Code(s): 95280856 (3) Candidemia Current Visit: Yes Status: Acute Code(s): B37.7 - CANDIDAL SEPSIS SNOMED Code(s): 344809508 Plan: 1patient is a hospital with sepsis in this patient who did have fever tachycardia elevated lactic acid upon meeting criteria for SIRS/sepsis source likely pneumonia 2-patient is status post bronchoscopy lavage results currently growing Pseudomonas that is resistant to Avycaz and corynebacterium, sensitivity on corynebacterium is pending 3-patient with Pseudomonas pneumonia for the patient has completed his antibiotic therapy 4-patient did have candidemia source is likely left chest wall PICC line which has been discontinued has been sent for the culture central line placed by ferry captain, blood culture repeat on 09/18/2024 positive blood culture repeat requ ested again and the patient will continue with Eraxis, mother at the bedside question answered Dictation was produced using [employer] dictation software. please excuse any grammatical, word or spelling errors. Time with Patient: Less than 30
[2024-09-22 18:13] LABS: Glucose,Whole Blood 181 mg/dL (70-110)
--- NOTE | 2024-09-22 19:00 | P.PN ---
Progress Note - Text Progress Note Date: 09/22/24 Chief Complaint: Short of breath 49-year-old patient, follows with Dr. Murcia History of paraplegia, home vent at night, tracheostomy multiple admissions to the ICU for recurrent pneumonia. Patient's previous bronchial cultures been positive for Pseudomonas. He was discharged recently on IV cefepime. Also has a history of Crohn's disease with previous colectomy diverting ileostomy. History of DVT for which patient is on subcu Lovenox. Also had drug-resistant MRSA Pseudomonas. Patient currently does not have areas significant trach secretions. He has continues TPN. Has a right BKA. He does have slight movement in the right hand. Able to follow commands by nodding his head. Answering questions. He is scared by his elder son open. I was also the DPOA. August 30: Overnight patient started having more secretions through the tracheostomy. Vancomycin was added. Also blood pressure running low patient was put on Levophed drip. Otherwise sinus rhythm. Patient remains on the ventilator. Will also send off stool for C. difficile. Also patient IV cefepime. Getting TPN. August 31: ICU. Patient had positive fluid balance. Was given IV Lasix earlier. Remains on Levophed. Spiking fevers. Getting TPN. Stool negative for C. difficile. Patient is growing MDRO Pseudomonas aeruginosa. ID is ordered IV Zerbaxa. Which is currently not available. Patient's friend is visiting him in the ICU. Light trach secretion September 01: ICU. On the ventilator. FiO2 45%. PEEP of 5. Continues to have light trach secretions. Sputum cultures again growing Pseudomonas. Zerbaxa was obtained and resumed. Blood pressure running low. On Levophed. Patient's younger son at the bedside. Colostomy working fine. Has been spiking fevers. Cooling blanket. Ice packs. September 02: ICU. Ventilator FiO2 45%. PEEP of 5. Continues to have some trach secretions. IV Zerbaxa IV tobramycin. TPN lipids to continue. Also Levophed. Patient started cooling blankets since yesterday for temperatures. Along with the nurse speech therapy records were reviewed from last few admissions. Patient with multiple MBS and bedside swallow eval. No trouble with swallowing. Patient put on a chopped diet. Thin liquids. Patient did spike a fever of 101.7 earlier today. Low ionized calcium. IV gluconate given. September 03: ICU. On ventilator FiO2 45%. PEEP of 5. Mild trach secretions. Getting IV TPN lipids. IV tobramycin. Zerbaxa was substituted to Avycaz. By ID. No fever per se since yesterday. For blood pressure patient is also on Levophed and vasopressin. September 04: ICU. On ventilator FiO2 45%. PEEP of 5. Clear trach secretions. Getting IV TPN lipids. IV tobramycin. And IV Avycaz. Remains afebrile.. On Levophed and vasopressin. Awake. 09/06/2024 Patient is seen and evaluated in ICU; remains on mechanical ventilator, actually his home ventilator, with settings of volume assist-control, rate 20, tidal volume 450, FiO2 45%, PEEP of 5. - patient has been refusing blood; no ABGs to. He is getting lactated Ringer's at 50 cc an hour, TPN at 65 cc an hour. - patient remains on the same antibiotics. - Labs reviewed which reveal white count 5.21, hemoglobin 7.9, hematocrit 27.5, and platelet count 64,000. Sodium 141, potassium 3.5, chlorides 102, CO2 32, BUN 25, and creatinine 0.35. Glucose is 152. Calcium is 8. Albumin is 2.1. -Chest x-ray is largely unchanged. Critical care managing mechanical ventilation; recommending to add scopolamine patch for increased secretion -Patient remains on Avycaz and tobramycin - Continue with current TPN 09/07 Patient remains in the ICU lethargic. He is s/p tracheostomy Overnight he was more hypoxic they have to increase PEEP to 8. Also has a lot of secretions when needed for secretions suctioning to try to become apneic per Staff. Patient currently receiving Avycaz and tobramycin. on TPN also 09/08 Patient remains in the ICU awake and alert status post tracheostomy. He has contractures of both upper and lower extremities He is complaining from pain in his lungs. He is status post flexible bronchoscopy and bronchoalveolar lavage yesterday. He has previous sputum culture positive for Pseudomonas currently covered with ceftazidime and tobramycin. He is also on Lovenox 90 mg 09/09 Patient still in the ICU on mechanical ventilation via tracheostomy. PEEP is 8.0 as is yesterday Also he spiked little fever to 100.7. IV vancomycin is added to tobramycin and ceftazidime He is getting also bronchoscopy follow-up culture results 09/10 Patient feels clinically the same, he still getting breathing via mechanical ventilation through his tracheostomy with PEEP of 8. Patient feels he is required suctioning through his tracheostomy tube. He denies chest pain or pain anywhere else he can communicate by head signs and gestures. Hemodynamically stable and afebrile hemoglobin 7.4 platelet count 73 Glucose is controlled potassium 3.3 He remains on broad-spectrum antibiotic Rocephin at this time tobramycin and IV vancomycin added yesterday because he had low-grade fever. He is getting TPN. IV fluid Ringer lactate was stopped and patient was started on IV Lasix 20 mg 3 times a day continue with therapeutic dose of Lovenox as well 09/11 Patient remains in the ICU Remains on mechanical ventilation via tracheostomy He status post bronchoalveolar lavage 2 days ago, culture is growing Pseudomonas aeruginosa and corynebacterium Patient remains on broad-spectrum antibiotics with IV vancomycin, tobramycin, ceftazidime On IV Lasix also is on therapeutic dose of Lovenox 90 mg twice daily No IV fluids 09/12 Patient remains in the ICU Clinically close to what he was over the last 2 days still getting oxygen via his tracheostomy He remains on broad-spectrum antibiotic with Ceftin this time and IV vancomycin. Also he is on IV Lasix 20 mg and therapeutic dose of Lovenox. 09/13 Patient remains in the ICU on mechanical ventilation via tracheostomy Patient looks better today, he breathing better Less secretion Fentanyl patch increased 09/14. Patient seen and examined. Patient continues to be on mechanical ventilation via trach mask. Currently on TPN. Currently on IV Zerbaxa and vancomycin 09/15. Patient seen and examined.Vital signs done showed the patient overnight, heart rate 106, blood pressure 107/40, currently on ventilation. Labs reviewed showed WBC 7.27, hemoglobin 7.5, sodium 148 on potassium 4.3, BUN 23, creatinine 0.47 09/16. Patient seen and examined labs reviewed showing WBC 5.45, hemoglobin 9.6, platelet count 131, sodium 146, potassium 4.1, BUN 20, creatinine 0.47. Continue small amount of Levophed. Currently on Zerbaxa and vancomycin. Currently on TPN September 17: ICU. Patient has taken a turn for the worse today. Significant thick white secretions from the trach. Sinus rhythm. Receiving TPN. Patient is on Levophed and vasopressor. Rather high dose. FiO2 [address] 10[address] Ho earlier spoke to the patient/family. Remains full code September 18: ICU. Intubated FiO2 70 PEEP of 12. Sinus rhythm. Drips include IV propofol at 50 and Levophed at 0.13. Patient is off vasopressin. Patient secretions. Family at the bedside. September 19: ICU. Intubated. FiO2 50 and a PEEP of 12. Drips include IV Levophed and propofol. Also started on Lasix drip 10 mg an hour yesterday. Secretions present. September 20: ICU. Intubated. FiO2 50 and a PEEP of 12. Hemoglobin 6.3. Secondary to blood being given. Patient been on and off Levophed. On propofol. Lipids have been held. Continues with TPN. Lasix drip was discontinued. Lovenox has been held because of low hemoglobin. Unable anemia is felt to be combination of regular blood draws and possible element element of hemolysis from all the infection. No dark stool. Family at the bedside September 7: ICU. Intubated. Received 2 units of blood yesterday. Hemoglobin 7.6 today. Per nephrology renal replacement therapy. Dialysis access placed by Dr. Cadena. Patient earlier today on Levophed. Propofol. Getting TPN. Sinus rhythm. Urine output decreased September 22: ICU. Intubated. FiO2 15 of PEEP of 12. Seen earlier today. Dialysis being started. Been on IV Levophed propofol. Sinus rhythm. TPN. Sinus rhythm. Active Medications Albuterol/Ipratropium (Ipratropium-Albuterol 3 Ml Neb) 3 ml INHALATION RT-Q4H PRN PRN Reason: shortness of breath Last Admin: 09/22/24 15:18 Dose: 3 ml Artificial Tears (Artificial Tears-Hypromellose Drops 15 Ml Btl) 1 drops BOTH EYES QID PRN PRN Reason: Dry Eye(s) Last Admin: 09/04/24 12:52 Dose: 1 drops Chlorhexidine Gluconate (Chlorhexidine Gluconate 15 Ml Cup) 15 ml MUCOUS MEM BID ANNIE Last Admin: 09/22/24 13:44 Dose: 15 ml Dextrose/Water (Dextrose 50% Syringe 50 Ml) 25 ml IVP PER PROTOCOL PRN; Protocol PRN Reason: Hypoglycemia Dextrose/Water (Dextrose 50% Syringe 50 Ml) 50 ml IVP PER PROTOCOL PRN; Protocol PRN Reason: Hypoglycemia Fentanyl (Fentanyl 100mcg/Hr Patch) 1 patch TRANSDERM Q72H ANNIE; Protocol Last Admin: 09/22/24 15:04 Dose: 1 patch Hydrocortisone Sodium Succinate (Hydrocortisone Succinate 100 Mg/2 Ml Vial) 50 mg IV Q12HR ANNIE Last Admin: 09/22/24 13:44 Dose: 50 mg Hydromorphone HCl (Hydromorphone 1 Mg/Ml 1 Ml Syringe) 1 mg IVP Q3H PRN PRN Reason: Pain Last Admin: 09/22/24 18:03 Dose: 1 mg Anidulafungin 100 mg/ Sodium (Chloride) 130 mls @ 84 mls/hr IVPB DAILY ANNIE; Protocol Last Admin: 09/22/24 14:06 Dose: 84 mls/hr Propofol 1,000 mg/ IV Solution 100 mls @ 32.34 mls/hr IV .Q3H6M ANNIE; Protocol Last Admin: 09/22/24 17:55 Dose: Not Given Norepinephrine Bitartrate 8 mg (/ Sodium Chloride) 258 mls @ 6.513 mls/hr IV .Q24H ANNIE; Protocol Last Titration: 09/21/24 18:04 Dose: 0.02 mcg/kg/min, 4.342 mls/hr Parenteral Vitamin Supplement 10 ml/ Zinc/Copper/Manganese/Selenium 1 ml/ Calcium Gluconate 0.5 gm/ Sodium Acetate 80 meq/ Amino Acids/Dextrose 1,056 mls @ 33 mls/hr IV .Q24H ANNIE Last Admin: 09/22/24 13:45 Dose: 33 mls/hr Insulin Human Lispro (Insulin Lispro (Humalog) 100 Unit/Ml 10 Ml Vl) 0 unit SQ Q6HR ANNIE; Protocol Last Admin: 09/22/24 13:47 Dose: 1 unit Lorazepam (Lorazepam 1 Mg/0.5 Ml Vial) 0.5 mg IV Q6HR PRN PRN Reason: Anxiety Last Admin: 09/15/24 18:26 Dose: 0.5 mg Miscellaneous Information (Pneumonia Protocol Utilized 1 Each Misc) 1 each PO ONCE PRN PRN Reason: Per Protocol Miscellaneous Information (Potassium Replacement Protocol 1 Each Misc) 1 each MISCELLANE DAILY PRN; Protocol PRN Reason: Per Protocol Miscellaneous Information (Magnesium Replacement Protocol 1 Each Misc) 1 each MISCELLANE DAILY PRN; Protocol PRN Reason: Per Protocol Naloxone HCl (Naloxone 0.4 Mg/Ml 1 Ml Vial) 0.2 mg IV Q2M PRN PRN Reason: Opioid Reversal Nystatin (Nystatin 100,000 Unit/Gm Powd 15 Gm) 1 applic TOPICAL BID ANNIE; Protocol Last Admin: 09/22/24 13:45 Dose: 1 applic Ondansetron HCl (Ondansetron 4 Mg/2 Ml Vial) 4 mg IVP Q6HR PRN PRN Reason: Nausea And Vomiting Last Admin: 09/01/24 19:41 Dose: 4 mg Pantoprazole Sodium (Pantoprazole 40 Mg/10 Ml Vial) 40 mg IV DAILY ANNIE Last Admin: 09/22/24 13:44 Dose: 40 mg Petrolatum (Zinc Oxide Paste (Z-Guard) 1 Applic) 1 applic TOPICAL BID PRN; Protocol PRN Reason: Wound Healing Social history: Patient started smoking at the age of [age] 1 pack a day stopped in 2016. Nonambulatory. Is cared by his son over. Who is also the DPOA Physical examination: VITAL SIGNS: 98.3, 71, 36, 112 x 57, 100% on ventilator GENERAL:, sedated EYES: Pupils equal. Conjunctiva loan l. HEENT: External appearance of nose and ears normal, oral cavity dry NECK: JVD unable to assess; masses not palpable. Tracheostomy HEART: First and second heart sounds are normal; no edema. LUNGS: Respiratory rate increased, decreased breath sounds, some crackles ABDOMEN: Soft, nontender, liver spleen not palpable, no masses palpable. Double barrel ostomy. PSYCH: Able to answer questions by attempting to speak to normal. Not able phonate MUSCULOSKELETAL: Right BKA. Left foot drop. Left hand contracture. Right hand also with contracture but able to have some movements NEUROLOGICAL: Cranial nerves grossly intact; no facial asymmetry, slight movement in the right arm. Awake L INVESTIGATIONS, reviewed in the clinical context: September 22: White count 7.4 hemoglobin 7.3 platelets 114 potassium 5.4 BUN 110 creatinine 1.79 September 18: White count 14.9 hemoglobin 7.6 ABG show pH of 7.2PCO2 of 68P O2 was 77 potassium was 6.1 repeat 5.2 creatinine 0.82 September 17: White count 20 hemoglobin 8.5 platelets 199 potassium 4.2 BUN 25 creatinine 0.4. ABG: pH 7.17 pCO2 79 PO277. September 02: White count 3.6 hemoglobin 9.7 platelets 130 potassium 3.9 BUN 23 creatinine 0.36 ionized calcium 4.3 TSH 2.7 Sputum culture: Pseudomonas aeruginosa: Sensitive to Zosyn, tobramycin, ceftazidime Sputum culture: Pseudomonas aeruginosa August 30: White count 3.5 hemoglobin 10.0 platelets 133 potassium 3.5 creatinine 0.36 August 29, 2024: White count 6.2 hemoglobin 12.3 platelets 216 sodium 128 potassium 3.1 BUN 50 creatinine 0.46 lactic acid 2.1 calcium 10.8 phosphorus 3.0 troponin I 0.016 UA: Negative for nitrite Influenza type A, type B, RSV, SARS-CoV-2: Not detected EKG tracing personally reviewed by me-normal sinus rhythm Chest x-ray film personally reviewed by me-right basilar infiltrate Previous labs: Sputum culture July 20, 2024: Pseudomonas aeruginosa Assessment plan: - basal pneumonia. Previous admission sputum was positive for Pseudomonas aeruginosa-:: Slow to respond Has received different antibiotics. Currently: Aniedulefungin IV, IV ceftolozane tazobactam, IV vancomycin Being followed by pulmonary, and ID - Fluid overload Had received Lasix drip - Acute kidney injury from ATN from septic shock. Also consider vancomycin toxicity. Oliguric. Volume overload. Dialysis catheter placed by Dr. Cadena-September 21. First dialysis session this morning - Septic shock: Slow to respond Been on Levophed off-and-on. - Acute on chronic hypoxic and hypercapnic respiratory failure, vent dependent at night at home: Slow to respond On ventilator support. Propofol - Tracheostomy with trach collar -Acute normocytic anemia of chronic disease and hospital-acquired anemia from blood draws and possible hemolysis from infection 2 units of blood given September 20. - Thrombocytopenia likely from sepsis Follow - Right below-knee amputation - Chronic quadriparesis. Including left foot drop. Left arm contracture. Some right hand contracture. Some movement in the right arm - Crohn's disease with double barrel ostomy bag in place since 09/2021 - TPN and lipids Lipids have been held during propofol - Full code - DPOA, son BECKY For first dialysis treatment today. Other medication treatment plan to continue. Past Medical History Past Medical History: CVA/TIA, Deep Vein Thrombosis (DVT), Pneumonia Additional Past Medical History / Comment(s): Hx CVA in 2012, DVT R arm, Crohns. colostomy Bag placed in 09/2021. History of Any Multi-Drug Resistant Organisms: MRSA, Other MDRO Date of last positivie culture/infection: 07/20/24-Other MDRO; 12/14/23-MRSA MDRO Source:: Other MDRO - sputum, BAL; MRSA- nasal Past Surgical History: Bowel Resection, Cholecystectomy, Orthopedic Surgery Additional Past Surgical History / Comment(s): R BKA, trach with chronic home vent Past Anesthesia/Blood Transfusion Reactions: No Reported Reaction Additional Past Anesthesia/Blood Transfusion Reaction / Comment(s): recalled from previous admission Smoking Status: Never smoker
[2024-09-23 02:04] LABS: Glucose,Whole Blood 234 mg/dL (70-110)
[2024-09-23 05:16] LABS: ABG HCO3 23 mmol/L (21-25); ABG PCO2 44 mmHg (35-45); ABG PH 7.31 (7.35-7.45); ABG PO2 100 mmHg (83-108); ABG TCO2 24 mmol/L (19-24)
[2024-09-23 05:20] LABS: Allen Test Performed? no
[2024-09-23 05:41] LABS: Basophils # (A) 0.01 10*3/uL (0.00-0.10); Basophils % (A) 0.1 %; Eosinophils # (A) 0.04 10*3/uL (0.04-0.35); Eosinophils % (A) 0.4 %; HCT 24.0 % (39.6-50.0); HGB 7.7 g/dL (13.0-17.0); Immature Platelet Fraction 8.5 % (1.1-6.1); Lymphocytes # (A) 0.73 10*3/uL (0.90-5.00); Lymphocytes % (A) 8.1 %; MCH 27.2 pg (27.0-32.0); MCHC 32.1 g/dL (32.0-37.0); MCV 84.8 fL (80.0-97.0); Monocytes # (A) 0.33 10*3/uL (0.20-1.00); Monocytes % (A) 3.7 %; Neutrophils # (A) 7.85 10*3/uL (1.80-7.70); Neutrophils % (A) 87.0 %; Platelet Count 155 10*3/uL (140-440); RBC 2.83 10*6/uL (4.40-5.60); RDW 20.6 % (11.5-14.5); WBC 9.02 10*3/uL (4.50-10.00)
[2024-09-23 05:58] LABS: African American GFR (CKD) 54 (>60 ml/min/1.73 sqM); Anion Gap 16 mmol/L; Blood Urea Nitrogen 80 mg/dL (9-20); Calcium 8.5 mg/dL (8.4-10.2); Carbon Dioxide 20 mmol/L (22-30); Chloride 96 mmol/L (98-107); Glucose 141 mg/dL (74-99); Magnesium 2.0 mg/dL (1.6-2.3); Non-African American GFR(CKD) 47 (>60 ml/min/1.73 sqM); Potassium 4.5 mmol/L (3.5-5.1); Sodium 132 mmol/L (137-145)
[2024-09-23 06:02] LABS: Glucose,Whole Blood 145 mg/dL (70-110)
--- NOTE | 2024-09-23 07:30 | XR ---
EXAMINATION TYPE: XR chest 1V portable DATE OF EXAM: 09/23/2024 3:57 AM COMPARISON: Multiple radiographs, with the most recent on 09/22/2024 TECHNIQUE: XR chest 1V portable Portable AP radiograph of the chest. CLINICAL INDICATION:Male, 49 years old with history of Mechanical ventilation; FINDINGS: Patient is rotated which limits evaluation. Lungs/Pleura: Small right pleural effusion. Similarly diffuse patchy airspace opacities throughout th e lungs. Most pronounced within the right lung base. No pneumothorax. Heart/mediastinum: Cardiomediastinal silhouette is enlarged. Musculoskeletal: No acute osseous pathology. Other findings: Surgical clips within the right supraclavicular region. Lines/Tubes: Tracheostomy cannula tip projecting over the trachea. Right subclavian approach central venous catheter with distal tip at the superior cavoatrial junction . IMPRESSION: 1. Overall similar examination with diffuse patchy airspace opacities with small right pleural effus ion. Findings may represent pulmonary edema and/or pneumonia. 2. Stable support lines and tubes. [facility], , 09/23/2024 7:28 AM
[2024-09-23] MEDS: [UNRECOGNIZED DRUG - REMARK] IV SCH (08:24)
--- NOTE | 2024-09-23 11:41 | P.PN ---
Subjective Progress Note Date: 09/23/24 Principal diagnosis: Pneumonia. This is a 49-year-old white male familiar to my service, history of paraplegia, home vent dependent, history of tracheostomy, patient had multiple admissions to the ICU for recurrent episodes of pneumonia and respiratory failure requiring ventilatory support. On his last admission patient was eventually discharged home on a home ventilator, and this was back on 08/04/2024. Patient was discharged home with a PICC line, patient was in the ER yesterday on 08/28 for abnormal labs mostly low potassium and low sodium discharged home however he cam e back today complaining of shortness of breath, has been ventilator dependent all along. Chest x-ray showed basically bibasilar opacities/atelectasis, doubt pneumonia, the findings in the left lower lobe are chronic. Patient did have previous history of pneumonia involving the left lower lobe and he had multiple bronchoscopies in the past. Bronchial cultures and sputum cultures have been positive in the past for mostly Pseudomonas aeruginosa. Patient was seen in the ER today, and he is already on cefepime for empiric coverage for potential left lower lobe pneumonia, patient had abnormal electrolytes with relatively low sodium low potassium, no leukocytosis, normal renal profile, blood pressure was soft, and he was given fluid boluses. Lactic acid was 2.1, D-dimer is normal, patient was admitted, and this consult was initiated. 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 Patient was seen today on 08/30/2024, patient continues to have intermittent episodes of fever with Tmax of 102, patient required norepinephrine and he remains on norepinephrine at 0.04 mcg/kg/min remains on LR at 130 cc/h remains on his home ventilator at tidal volume of 450 rate of 20 FiO2 45% and PEEP of 5. Seems comfortable, not in distress, his WBC is 3.5 hemoglobin 10.0 electrolytes are normal renal profile is normal potassium is borderline low. Patient remains on cefepime, vancomycin was added because of his previous history of MRSA, and is on cefepime for previous history of pseudomonal infection and now that the patient may be septic it is more of a reason to broaden the spectrum of antibiotics coverage with cefepime and vancomycin. Sputum cultures and blood cultures are pending. Patient does have history of pseudomonal and history of MRSA infections, and I discontinued his Zithromax today replace Zithromax with vancomycin. Viral screen is negative Legionella antigen is negative. Chest x- ray is relatively unchanged continues to show bibasilar opacities atelectasis/pneumonia. Progress note dated August 31, 2024. The patient is seen today in room 252. The patient was admitted a couple days ago, to the intensive care unit. The patient is currently on mechanical ventilator, actually his home ventilator. He is on volume assist-control, rate 20, tidal volume 450, FiO2 45% PEEP of 5. The patient is getting lactated Ringer's at 130 cc an hour, TPN at 91 cc an hour, norepinephrine at 8 mcg/min. Doppler of the left upper extremity was negative. He continues on Zerbaxa, and vancomycin. We will check a procalcitonin level. Cultures thus far are negative. He does have a previous history of methicillin-resistant Staph aureus infection, and pseudomonal infections. White count was 2.21, hemoglobin 9.3, hematocrit 32, platelet count 1 61,000. D-dimer was 5.78. Sodium 132, potassium 4.3, chlorides 106, CO2 21, BUN 18, creatinine 0.28. Glucose was 141. Calcium 7.8. C. difficile study was negative. Urine Legionella antigen was negative. Microbiologic studies are currently negative. Chest x-ray shows bibasilar airspace opacities, possibly consistent with pneumonia. 09/01/24 - The patient is seen today in room 252. Admitted to the hospital and the intensive care unit on 08/29/2024. The patient is currently on mechanical ventilator, his one from home. He is on volume assist control, rate of 20, tidal volume of 450, FiO2 45% and PEEP of 5. He currently has LR running at 50 cc/h, TPN at 91 cc/h, Zerbaxa and tobramycin. Chest Xray done this morning showed stable airspace opacities. Cultures are positive for pseudomonas aeruginosa, awaiting sensitivities. WBCs 2.69, Hgb 8.9, Hct 31.5, PLT 153, Na 135, K 3.4, Cl 109, HCO3 19, BUN 22, Cr 0.34, Phos 2.4. 09/02/24 - He is seen today in room 252. Admitted to the hospital and ICU on 08/29/24. He continues on mechanical ventilator, his one from home. He remaines on volume assist control, rate of 20, tidal volume of 450, FiO2 45% and PEEP of 5. He continues to have LR running at 50 cc/h, TPN at 91 cc/h, norepinephrine at 0.13 mcg/kg/min, Zebraxa and Tobramycin. Chest XRay this morning showed stable airspace opacities. Continue to await sensitivity of pseudomonas sputum culture. Lab work shows WBCs 3.64, Hgb 9.7, Hct 33.5, PLT 130, Na 133, K 3.9, bicarb 21, BUN 23, Cr 0.36, Ca 7.8, Mg 2.4, Albumin 2.3. 09/03/24 - He is seen in room 252. Admitted to the hospital and ICU on 08/29/24. He continues on mechanical ventilator, his one from home. He remaines on volume assist control, rate of 20, tidal volume of 450, FiO2 45% and PEEP of 5. He continues to have LR running at 50 cc/h, TPN at 91 cc/h, norepinephrine at 0.24 mcg/kg/min, Avycaz and Tobramycin. Zebraxa was discontinued as there was no reported sensitivity to it. Lab work shows WBCs 9.40, Hgb 8.8, Hct 30.6, PLT 100, Na 130, K 3.6, bicarb 23, BUN 25, Cr 0.51, Ca 7.8, Ionized Ca 4.6, Phos 3.3, Mg 2.1, TSH 2.710 and random cortisol 13.1. 09/04/24 - He is seen in room 252. Admitted to the hospital and ICU on 08/29/24. He continues on mechanical ventilator, his one from home. He remaines on volume assist control, rate of 20, tidal volume of 450, FiO2 45% and PEEP of 5. He continues to have LR running at 50 cc/h, TPN at 91 cc/h, norepinephrine at 0.24 mcg/kg/min, Avycaz and Tobramycin. Lab work shows sodium 133, potassium 3.5, bicarb 24, BUN 27, creatinine 0.47, calcium 7.9, ionized calcium 4.6, magnesium 1.9, phosphorus 3.0, total bilirubin 1.7, AST 57, ALT 45, alkaline phosphatase 99. Progress note dated September 05, 2024. 49-year-old male well-known to our service. He is seen today in room 252. He continues on volume assist-control, rate 20, tidal 450, FiO2 45%, PEEP of 5. The patient has refused blood gases. Currently, he is getting TPN at 65 cc an hour, norepinephrine at 1 mcg/min, LR at 50 cc/h. Clinically, the patient is doing well. His chest x-ray remains about the same. Yesterday he was on a higher dose of norepinephrine, and also was on vasopressin. Both have been weaned off. Current labs include a sodium 136, potassium 4.1, chlorides 101, CO2 28, BUN 30, creatinine 0.37. Glucose 153. Albumin is 2.2. Previous sputum, from August 29 with positive for Pseudomonas aeruginosa. Chest x-ray is largely unchanged. Progress note dated September 06, 2024. 49-year-old male again seen today in the intensive care unit, room 252. He remains on mechanical ventilator, actually his home ventilator, with settings of volume assist-control, rate 20, tidal volume 450, FiO2 45%, PEEP of 5. No blood gases today. The patient has been refusing. He is getting lactated Ringer's at 50 cc an hour, TPN at 65 cc an hour. He continues on the same antibiotics. White count 5.21, hemoglobin 7.9, hematocrit 27.5, and platelet count 64,000. Sodium 141, potassium 3.5, chlorides 102, CO2 32, BUN 25, and creatinine 0.35. Glucose is 152. Calcium is 8. Albumin is 2.1. Chest x-ray is largely unchanged. Patient was seen today on 09/16/2024, patient is basically about the same. Hardly any improvement noted in the last few weeks since admission, patient remains intubated, mechanically ventilated, same ventilator settings, assist-control rate of 20 tidal volume 450 FiO2 60% and PEEP of 8 ABG was not done today, no easy access, attempted to place arterial lines in this patient, but could not pass a wire although the arteries including femoral artery and left brachial artery were easily cannulated. No further attempts made for arterial access. Patient remains on norepinephrine at 0.13 mcg/kg/min still on TPN at 75 cc/h still on Zerbaxa and vancomycin chest x-ray showed worsening today of bilateral infiltrates possibly some component of fluid overload and I recommended Lasix 20 mg IV push twice daily. Patient seems to be quite swollen and edematous. WBC count is 5.4 hemoglobin 7.6 electrolytes showed sodium of 146 potassium 4.1 BUN 20 creatinine 0.47 Patient was seen today on 09/17/2024, patient seems to be deteriorating steadily over the last 24 hours, he is developing profound hypotension requiring pressors in the form of Levophed at 0.4 mcg/kg/min he is also on vasopressin at 0.04 units/min he is on TPN at 75 cc/h hemoglobin is noted to be low at 6.9, patient has positive yeast in the blood/fungemia he is on fluconazole, this is being addressed by infectious disease on the case. Earlier ABG showed a pO2 of 77 pCO2 88 pH of 7.13, Vent settings were adjusted with increasing the rate to 36. He is now on tidal volume of 350 FiO2 100% PEEP is 10 and rate is 36. Another ABG is pending. But clearly patient is taking a downhill clinical course. Patient is quite septic, I will likely change his central line, and place a new central line in this patient today and remove the old central line/PICC line. Patient will receive a unit of packed RBCs for hemoglobin of 6.9. Considering the change in his overall clinical status, discussed his condition with son, would like to keep his dad as a full code, he is very well aware of the poor prognostic picture and how ill his dad is. Would like to keep him a full code. WBC count today is 20.03 hemoglobin 8.5, basic metabolic profile is normal BUN is 25 creatinine 0.4 total protein is 6.9 albumin is 1.9. Patient was seen today on 09/18/24, remains in the ICU, intubated and mechanically ventilated. Patient is still requiring assist-control rate of maximal ventilatory support with rate of 36 tidal volume increased today up to 400 FiO2 decreased from 100% to 70% PEEP remains at 12. Earlier ABG before changes were made at the FiO2 had been on tidal volume showed a pO2 of 77 pCO2 68 pH of 7.20. Patient is still requiring norepinephrine and I have been titrating the norepinephrine earlier this morning he is down to 0.18 from 0.46 yesterday micrograms per kilo per minute vasopressin is still at 0.04 units/min patient is on propofol at 50 mcg/kg/min Lasix drip at 20 mg/h and TPN at 75 cc/h. I am also treating the patient with vancomycin, Zerbaxa, and Eraxis was added to replace fluconazole yesterday by infectious disease specially with his positive blood cultures for Bella. Urine output is improving with the Lasix drip, he did not improve much with 1 dose of Lasix 60 mg IV push. Remains on Solu-Cortef at 100 mg IV push every 8 hours patient is in positive fluid balance about 6 L hence I decided to go with Lasix drip today. Labs today showed slight improvement in his WBC count down to 14.9 hemoglobin is 7.6, electrolytes are abnormal with a potassium of 6.1 BUN is 45 creatinine 0.82 chest x-ray continues show bilateral interstitial edema/infiltrates, could be cardiogenic or noncardiogenic pulmonary edema I believe it is mostly cardiogenic/related to fluid overload as he received significant fluids yesterday for low blood pressure. And he was not making much urine in the last 24 hours. Hence Lasix drip was started today. Patient was seen today on 09/19/2024, remains in the ICU, remains intubated and mechanically ventilated. Patient is on assist-control rate of 36 tidal volume 400 FiO2 65% and PEEP of 12. His ABG showed a pO2 of 142 pCO2 52 pH of 7.28, hence cut down his FiO2 down to 50%. The PEEP at 12. Patient remains hemodyn amically unstable, remains on norepinephrine at 0.08 mcg/kg/min, his vasopressin has been discontinued. TPN is at 75 cc/h. Remains on Lasix drip/infusion at 20 mg/h. He is on propofol at 50 mcg/kg/min remains on Solu-Cortef 50 mg every 8, Eraxis, Zerbaxa, vancomycin. Urine output is marginal at about 10 to 20 cc/h in spite of Lasix drip. Lovenox will be resumed today at 80 mg subcu twice daily. Patient is sedated, his overall clinical status is showing slight improvement compared to the clinical status couple of days ago. Chest x-ray continues to show evidence of interstitial edema although the possibility of ARDS is not entirely ruled out considering his overall septic picture. CBC is about the same with WBC of 7.7 hemoglobin 7.1. Platelets are 128,000. Basic metabolic profile is normal potassium is down to 5.2 BUN is 67 creatinine is slightly higher today 1.13. Blood sugar is 358. Patient was seen today on 09/20/2024, remains in the ICU intubated mechanically ventilated. On assist-control rate of 36 tidal volume 400 FiO2 50% PEEP of 12, no ABG done today, however his O2 saturation is in the high 90s about 98%. Patient had a low hemoglobin today and he will need a unit of blood/packed RBCs for low hemoglobin. No active bleeding noted, Hemoccult stools will be done t lizette. Patient remains on Eraxis and Zerbaxa, his vancomycin was discontinued remains on lower dose of Solu-Cortef 50 mg IV push every 12 hours. Continues to have poor urine output and his renal functioning is getting a bit worse. Nephrology was consulted, patient received initially significant amount of fluids for his presentation of sepsis, and he remained oliguric in spite of fluid boluses. Then he was placed on Lasix drip which initially was working fine, now that urine output is rather marginal and spite of Lasix drip at 20 mg an hour. I am recommending a trial of albumin followed by 80 mg of Lasix IV push. And hopefully his urine output will cigar packer and picker with the albumin and with the blood transfusion which is scheduled to be done soon. Vancomycin has been discontinued. Chest x-ray continues to show evidence of interstitial edema. Labs are reviewed his potassium is 5 bicarb is 20 BUN is 83 creatinine 1.49 platelets are 105 hemoglobin 6.3. Progress note dated September 21, 2024. The patient remains on volume assist-control, rate 36, tidal volume 400, FiO2 50%, PEEP of 12. Blood gases were not obtained. He continues on TPN at 75 cc an hour, propofol at 50 mcg/kg/min, saline at 10 cc an hour, and norepinephrine is currently on hold. Antibiotic douglas, he continues on vancomycin, and Eraxis. White count is 6.9, hemoglobin 7.6, hematocrit 24.3, and platelet count 115,000. Sodium 137, potassium 5.1, chlorides 103, CO2 18, anion gap 16, BUN 99, creatinine 1.58. Glucose is 228. Calcium 8.1, phosphorus 5.4, magnesium 2.5. Culture data shows evidence of Pseudomonas aeruginosa back on August 29, Pseudomonas in the bronchial washings on September 07, and blood cultures positive, September 18, currently pending. Chest x-ray is largely unchanged, shows patchy diffuse airspace opacities, with a small right-sided pleural effusion. Progress note dated September 22, 2024. The patient is seen today in room 252. He remains on volume assist-control. Settings include volume assist-control 36, tidal volume 400, FiO2 50%, PEEP of 12. He is getting propofol at 50 mcg/kg/min, norepinephrine at 3 mcg/min, and TPN at 75 cc an hour. He is having hemodialysis today. The goal is removal of 1 to 2 L of fluid. He continues on Eraxis. We were able to place a right radial arterial line. We will repeat a blood gas, after hemodialysis. Current laboratory data includes a white count 7.4, hemoglobin 7.3, hematocrit 23.4, and a platelet count of 114,000. Sodium 134, potassium 5.4, chlorides 104, CO2 15, anion gap 15, BUN 110, creatinine 1.79. Glucose is 153. Calcium is 8.3. Previous blood in sputum sampling, showed evidence of Pseudomonas aeruginosa. The patient also has previous blood culture showing evidence of Bella species. Chest x-ray today is largely unchanged. Progress note dated September 23, 2024. 49-year-old male seen today in room 252. He remains on mechanical ventilation. He is on volume assist-control, rate 36, tidal volume 400, FiO2 40%, PEEP of 12. Blood gases show pO2 100, pCO2 44, pH is 7.30. Patient continues on norepinephrine at 5.6 mcg/min, propofol at 50 mcg/kg/min, TPN at 33 cc an hour. He is getting saline at 10 cc an hour. He had hemodialysis yesterday, September 22, and 1 L of fluid was removed. He continues on Eraxis, as per infectious diseases. White count is 9.0, hemoglobin 7.7, hematocrit 24, and platelet count is 155,000. Sodium 132, potassium 4.5, chlorides 96, CO2 20, anion gap 16, BUN 80, and creatinine 1.69. Glucose is 145. Calcium 8.5. Most recent blood cultures, on September 18, were positive for Bella. Today's chest x-ray is largely unchanged. Objective - Vital Signs Vital signs: Vital Signs Temp 94.6 F L 09/23/24 08:00 Pulse 53 L 09/23/24 11:15 Resp 36 H 09/23/24 11:15 BP 111/61 09/23/24 11:15 Pulse Ox 97 09/23/24 11:15 FiO2 40 09/23/24 08:26 Intake & Output 09/22/24 09/23/24 09/23/24 18:59 06:59 18:59 Intake Total 1777 1372.948 569.496 Output Total 3296 81 25 Balance -1519 1291.948 544.496 Weight 113.3 kg 113.1 kg Intake: IV 1077 942 212 0.9 120 120 50 Pressure Bag, CVP and ART 57 72 30 TPN 900 750 132 Intake, IV Titration 200 430.948 357.496 Amount Anidulafungin 100 mg In 100 Sodium Chloride 0.9% 100 ml @ 84 mls/hr IVPB DAILY ANNIE Rx#:[id number] Norepinephrine 8 mg In 140.681 57.496 Sodium Chloride 0.9% 250 ml @ 0.03 MCG/KG/MIN 6. 513 mls/hr IV .Q24H ANNIE Rx#:[id number] propofoL 1,000 mg In 200 290.267 200 Empty Bag 1 bag @ 50 MCG/ KG/MIN 32.34 mls/hr IV . Q3H6M ANNIE Rx#:[id number] Hemodialysis 500 Output: Urine 46 81 25 Stool 750 Hemodialysis 1500 Hemodialysis Net Amount 1000 Other: Voiding Method Indwelling Catheter Indwelling Catheter Indwelling Catheter ABP, PAP, CO, CI - Last Documented Arterial Blood Pressure 44/39 - Exam No acute distress, currently connected to the ventilator. He has a tracheostomy tube in place. HEENT examination is grossly unremarkable. Mucous membranes are moist. No oral lesions. Neck supple. Full range of motion. No adenopathy thyromegaly or neck vein distention. Cardiovascular examination reveals regular rhythm rate. S1-S2 normal. No S3 or S4. No discernible murmur noted. Lungs reveal scattered rhonchi and crackles. No wheezes. Breath sounds equal bilaterally. Abdomen reveals an enterocutaneous fistula, normal bowel sounds. No tenderness. No masses. Extremities are intact. No cyanosis clubbing or edema. Right below the knee amputation. Has a right radial arterial line. Skin is without rash or lesion. Neurologic examination is brief but nonfocal. He does have significant muscle atrophy, and contractures. He has a right below the knee amputation. - Labs CBC & Chem 7: 09/23/24 05:09/23/24 05:25 Labs: Abnormal Lab Results - Last 24 Hours (Table) 09/22/24 09/22/24 09/23/24 Range/Units 14:16 18:11 02:02 RBC (4.40-5.60) 10*6/uL Hgb (13.0-17.0) g/dL Hct (39.6-50.0) % MPV (9.5-12.2) fL Immature Gran # (0.00-0.04) 10*3/uL Neutrophils # (1.80-7.70) 10*3/uL Lymphocytes # (0.90-5.00) 10*3/uL Immature Plt Fraction (1.1-6.1) % ABG pH (7.35-7.45) ABG pO2 126 H (83-108) mmHg ABG Total CO2 25 H (19-24) mmol/L ABG O2 Saturation 99.4 H (94-97) % Hemoglobin 8.1 L (13.0-17.5) gm/dL Sodium (137-145) mmol/L Chloride (98-107) mmol/L Carbon Dioxide (22-30) mmol/L BUN (9-20) mg/dL Creatinine (0.66-1.25) mg/dL Glucose (74-99) mg/dL POC Glucose (mg/dL) 181 H 234 H (70-110) mg/dL Phosphorus (2.5-4.5) mg/dL 09/23/24 09/23/24 09/23/24 Range/Units 05:12 05:25 05:25 RBC 2.83 L (4.40-5.60) 10*6/uL Hgb 7.7 L (13.0-17.0) g/dL Hct 24.0 L (39.6-50.0) % MPV 12.6 H (9.5-12.2) fL Immature Gran # 0.06 H (0.00-0.04) 10*3/uL Neutrophils # 7.85 H (1.80-7.70) 10*3/uL Lymphocytes # 0.73 L (0.90-5.00) 10*3/uL Immature Plt Fraction 8.5 H (1.1-6.1) % ABG pH 7.31 L (7.35-7.45) ABG pO2 (83-108) mmHg ABG Total CO2 (19-24) mmol/L ABG O2 Saturation 98.0 H (94-97) % Hemoglobin 7.9 L (13.0-17.5) gm/dL Sodium 132 L (137-145) mmol/L Chloride 96 L (98-107) mmol/L Carbon Dioxide 20 L (22-30) mmol/L BUN 80 H (9-20) mg/dL Creatinine 1.69 H (0.66-1.25) mg/dL Glucose 141 H (74-99) mg/dL POC Glucose (mg/dL) (70-110) mg/dL Phosphorus 6.5 H (2.5-4.5) mg/dL 09/23/24 Range/Units 06:01 RBC (4.40-5.60) 10*6/uL Hgb (13.0-17.0) g/dL Hct (39.6-50.0) % MPV (9.5-12.2) fL Immature Gran # (0.00-0.04) 10*3/uL Neutrophils # (1.80-7.70) 10*3/uL Lymphocytes # (0.90-5.00) 10*3/uL Immature Plt Fraction (1.1-6.1) % ABG pH (7.35-7.45) ABG pO2 (83-108) mmHg ABG Total CO2 (19-24) mmol/L ABG O2 Saturation (94-97) % Hemoglobin (13.0-17.5) gm/dL Sodium (137-145) mmol/L Chloride (98-107) mmol/L Carbon Dioxide (22-30) mmol/L BUN (9-20) mg/dL Creatinine (0.66-1.25) mg/dL Glucose (74-99) mg/dL POC Glucose (mg/dL) 145 H (70-110) mg/dL Phosphorus (2.5-4.5) mg/dL Microbiology - Last 24 Hours (Table) 09/18/24 09:45 Blood Culture Gram Stain - Final Blood Blood Culture - Final Bella parapsilosis group Molecular ID Assessment and Plan Assessment: Septic shock, likely secondary to Pseudomonas pneumonia, or urinary tract infection. Probable fungemia, currently on Eraxis. Chronic hypoxemic and hypercapnic respiratory failure, ventilator dependent, on a home ventilator, S/P tracheostomy. Left lower lobe atelectasis, possible pneumonia, with pseudomonal infection. History of severe tracheal stenosis, S/P tracheostomy. History of recurrent pneumonia, involving the left lower lobe. Tracheobronchomalacia. History of DVT. History of CVA. History of right below-knee amputation. Previous history of asystole/cardiac arrest, 2021. History of Crohn's disease, S/P enterocutaneous fistula, diverting ileostomy. Plan: Plan dated August 31, 2024. The patient is seen today in room 252. The patient's weight had on fluids, and the lactated Ringer's is cut back to 40 cc an hour. The patient will get 1 dose of Lasix IV push. Ventilator settings are noted. No blood gases today. It was apparently refused by the patient. Doppler of the left upper extremity was negative for DVT. Will check a procalcitonin level. The patient continues on norepinephrine at 8 mcg/min. He is getting TPN at 91 cc an hour. We will continue to follow make recommendations along the way. Labs, x-rays, and all medications are reviewed. Prognosis is certainly guarded. Dictation was produced using avandeo dictation software. Please excuse any grammatical, word or spelling errors. Plan dated September 05, 2024. The patient is seen today in room 252. He is connected to his home mechanical ventilator. Settings of the same and include volume assist-control, rate 20, tidal volume 450, FiO2 45%, PEEP of 5. The patient is getting TPN at 65 cc an hour, norepinephrine has been weaned down to 1 mcg/min. He is getting lactated Ringer's at 50 cc an hour. He continues on Avycaz and tobramycin. We will continue to follow make recommendations. The patient also continues on hydrocortisone, for relative adrenal insufficiency. Prognosis is certainly guarded. We will continue to follow. Dictation was produced using [employer] software. Please excuse any grammatical, word or spelling errors. Plan dated September 06, 2024. The patient is seen today in room 252. He continues on mechanical ventilation. The patient is having increased secretions. Will add a scopolamine patch. He continues on Avycaz, and tobramycin. In addition, he continues on TPN at 65 cc an hour, and lactated Ringer's at 50 cc an hour. All labs, x-rays, and m edications are reviewed. Chest x-ray is unchanged. We will continue to follow make recommendations. Prognosis is guarded. Dictation was produced using [employer] software. Please excuse any grammatical, word or spelling errors. Plan dated September 21, 2024. The patient is again seen today in room 252, with presumed ongoing sepsis. The patient has norepinephrine on standby, for blood pressure support, and recently was maxed out on multiple vasopressors. Currently, the patient continues on Eraxis, and vancomycin. The patient also continues on TPN at 75 cc an hour, propofol at 50 mcg/kg/min. All labs, x-rays, medications are reviewed. The patient's overall prognosis remains very poor. We will continue to follow. He remains a full code. Dictation was produced using [employer] software. Please excuse any grammatical, word or spelling errors. Plan dated September 22, 2024. The patient was seen to get her up to 52. We were able to place a right radial art line in the patient. There was good blood return from the arterial line, although the waveform was dampened. The patient continues on appropriate medications, including propofol at 50 mcg/kg/min, norepinephrine at 3 mcg/min. The patient is also getting TPN at 75 cc an hour. He is receiving hemodialysis today. He continues on Eraxis. After hemodialysis, the patient will have a arterial blood gas. Additional recommendations and suggestions are forthcoming. Prognosis is guarded. All labs, x-rays, and medications are reviewed. We will continue to follow the patient, make recommendations. Dictation was produced using Dragon dictation software. Please excuse any grammatical, word or spelling errors. Plan dated September 23, 2024. The patient is again seen today in room 252. The patient's blood gases show pO2 100, pCO2 44, pH of 7.31. Patient continues on norepinephrine at 5.6 mcg/min, propofol at 50 mcg/kg/min. The patient is getting TPN at 33 cc an hour. The patient continues on Eraxis. He had hemodialysis yesterday. All labs, x-rays, and medications are reviewed. The patient remains a full code. Will continue to follow the patient, make recommendations along the way. Prognosis is guard ed. Dictation was produced using [employer] software. Please excuse any grammatical, word or spelling errors. Time with Patient: Greater than 30
--- NOTE | 2024-09-23 11:58 | P.PN ---
Subjective Patient is seen for follow-up for acute kidney injury. Patient remains on the vent Started hemodialysis on 09/22/2024 for volume overload and worsening acute kidney injury Levophed at 0.04 mcg/kg No significant urine output FiO2 at 50% Patient will be dialyzed again today. Objective - Vital Signs Vital signs: Vital Signs Temp 94.6 F L 09/23/24 08:00 Pulse 52 L 09/23/24 11:51 Resp 36 H 09/23/24 11:15 BP 111/61 09/23/24 11:15 Pulse Ox 97 09/23/24 11:15 FiO2 40 09/23/24 08:26 Intake & Output 09/22/24 09/23/24 09/23/24 18:59 06:59 18:59 Intake Total 1777 1372.948 569.496 Output Total 3296 81 25 Balance -1519 1291.948 544.496 Weight 113.3 kg 113.1 kg Intake: IV 1077 942 212 0.9 120 120 50 Pressure Bag, CVP and ART 57 72 30 TPN 900 750 132 Intake, IV Titration 200 430.948 357.496 Amount Anidulafungin 100 mg In 100 Sodium Chloride 0.9% 100 ml @ 84 mls/hr IVPB DAILY ANNIE Rx#:[id number] Norepinephrine 8 mg In 140.681 57.496 Sodium Chloride 0.9% 250 ml @ 0.03 MCG/KG/MIN 6. 513 mls/hr IV .Q24H ANNIE Rx#:[id number] propofoL 1,000 mg In 200 290.267 200 Empty Bag 1 bag @ 50 MCG/ KG/MIN 32.34 mls/hr IV . Q3H6M ANNIE Rx#:[id number] Hemodialysis 500 Output: Urine 46 81 25 Stool 750 Hemodialysis 1500 Hemodialysis Net Amount 1000 Other: Voiding Method Indwelling Catheter Indwelling Catheter Indwelling Catheter ABP, PAP, CO, CI - Last Documented Arterial Blood Pressure 44/39 - Exam Patient is on the vent Examination of the heart S1 and S2 Tracheostomy noted Examination of the lungs bilateral breath sounds are heard Abdomen is distended Examination of lower extremities shows right BKA and significant edema in the left leg as well as scrotal edema noted. - Labs CBC & Chem 7: 09/23/24 05:25 09/23/24 05:25 Labs: Abnormal Lab Results - Last 24 Hours (Table) 09/22/24 09/22/24 09/23/24 Range/Units 14:16 18:11 02:02 RBC (4.40-5.60) 10*6/uL Hgb (13.0-17.0) g/dL Hct (39.6-50.0) % MPV (9.5-12.2) fL Immature Gran # (0.00-0.04) 10*3/uL Neutrophils # (1.80-7.70) 10*3/uL Lymphocytes # (0.90-5.00) 10*3/uL Immature Plt Fraction (1.1-6.1) % ABG pH (7.35-7.45) ABG pO2 126 H (83-108) mmHg ABG Total CO2 25 H (19-24) mmol/L ABG O2 Saturation 99.4 H (94-97) % Hemoglobin 8.1 L (13.0-17.5) gm/dL Sodium (137-145) mmol/L Chloride (98-107) mmol/L Carbon Dioxide (22-30) mmol/L BUN (9-20) mg/dL Creatinine (0.66-1.25) mg/dL Glucose (74-99) mg/dL POC Glucose (mg/dL) 181 H 234 H (70-110) mg/dL Phosphorus (2.5-4.5) mg/dL 09/23/24 09/23/24 09/23/24 Range/Units 05:12 05:25 05:25 RBC 2.83 L (4.40-5.60) 10*6/uL Hgb 7.7 L (13.0-17.0) g/dL Hct 24.0 L (39.6-50.0) % MPV 12.6 H (9.5-12.2) fL Immature Gran # 0.06 H (0.00-0.04) 10*3/uL Neutrophils # 7.85 H (1.80-7.70) 10*3/uL Lymphocytes # 0.73 L (0.90-5.00) 10*3/uL Immature Plt Fraction 8.5 H (1.1-6.1) % ABG pH 7.31 L (7.35-7.45) ABG pO2 (83-108) mmHg ABG Total CO2 (19-24) mmol/L ABG O2 Saturation 98.0 H (94-97) % Hemoglobin 7.9 L (13.0-17.5) gm/dL Sodium 132 L (137-145) mmol/L Chloride 96 L (98-107) mmol/L Carbon Dioxide 20 L (22-30) mmol/L BUN 80 H (9-20) mg/dL Creatinine 1.69 H (0.66-1.25) mg/dL Glucose 141 H (74-99) mg/dL POC Glucose (mg/dL) (70-110) mg/dL Phosphorus 6.5 H (2.5-4.5) mg/dL 09/23/24 Range/Units 06:01 RBC (4.40-5.60) 10*6/uL Hgb (13.0-17.0) g/dL Hct (39.6-50.0) % MPV (9.5-12.2) fL Immature Gran # (0.00-0.04) 10*3/uL Neutrophils # (1.80-7.70) 10*3/uL Lymphocytes # (0.90-5.00) 10*3/uL Immature Plt Fraction (1.1-6.1) % ABG pH (7.35-7.45) ABG pO2 (83-108) mmHg ABG Total CO2 (19-24) mmol/L ABG O2 Saturation (94-97) % Hemoglobin (13.0-17.5) gm/dL Sodium (137-145) mmol/L Chloride (98-107) mmol/L Carbon Dioxide (22-30) mmol/L BUN (9-20) mg/dL Creatinine (0.66-1.25) mg/dL Glucose (74-99) mg/dL POC Glucose (mg/dL) 145 H (70-110) mg/dL Phosphorus (2.5-4.5) mg/dL Microbiology - Last 24 Hours (Table) 09/18/24 09:45 Blood Culture Gram Stain - Final Blood Blood Culture - Final Bella parapsilosis group Molecular ID Assessment and Plan Assessment: 1. Acute kidney injury secondary to ATN secondary to septic shock and vancomycin toxicity. Vancomycin level 49.3 on 09/19/2024. Patient remains nasrin guric with significant volume overload noted. Started hemodialysis on 09/22/2024. 2. Septic shock secondary to pneumonia and fungemia. Currently off Levophed. 3. Acute blood loss anemia with hemoglobin of 6.3 today. Currently receiving a unit of blood. 4. Volume overload. 5. Chronic hypoxic and hypercapnic respiratory failure, home ventilator dependent. 6. History of cardiac arrest. 8. Status post right BKA. Plan: Dialysis today and repeat in a.m. Continue antibiotics and antifungal treatment as per ID Continue with TPN Monitor electrolytes.
[2024-09-23 12:28] LABS: Glucose,Whole Blood 132 mg/dL (70-110)
[2024-09-23 18:05] LABS: Glucose,Whole Blood 144 mg/dL (70-110)
[2024-09-23] MEDS: HYDROmorphone 1 MG/ML 1 ML SYRINGE IVP PRN (18:22)
--- NOTE | 2024-09-23 19:32 | P.PN ---
Progress Note - Text Progress Note Date: 09/23/24 Chief Complaint: Short of breath 49-year-old patient, follows with Dr. Murcia History of paraplegia, home vent at night, tracheostomy multiple admissions to the ICU for recurrent pneumonia. Patient's previous bronchial cultures been positive for Pseudomonas. He was discharged recently on IV cefepime. Also has a history of Crohn's disease with previous colectomy diverting ileostomy. History of DVT for which patient is on subcu Lovenox. Also had drug-resistant MRSA Pseudomonas. Patient currently does not have areas significant trach secretions. He has continues TPN. Has a right BKA. He does have slight movement in the right hand. Able to follow commands by nodding his head. Answering questions. He is scared by his elder son open. I was also the DPOA. August 30: Overnight patient started having more secretions through the tracheostomy. Vancomycin was added. Also blood pressure running low patient was put on Levophed drip. Otherwise sinus rhythm. Patient remains on the ventilator. Will also send off stool for C. difficile. Also patient IV cefepime. Getting TPN. August 31: ICU. Patient had positive fluid balance. Was given IV Lasix earlier. Remains on Levophed. Spiking fevers. Getting TPN. Stool negative for C. difficile. Patient is growing MDRO Pseudomonas aeruginosa. ID is ordered IV Zerbaxa. Which is currently not available. Patient's friend is visiting him in the ICU. Light trach secretion September 01: ICU. On the ventilator. FiO2 45%. PEEP of 5. Continues to have light trach secretions. Sputum cultures again growing Pseudomonas. Zerbaxa was obtained and resumed. Blood pressure running low. On Levophed. Patient's younger son at the bedside. Colostomy working fine. Has been spiking fevers. Cooling blanket. Ice packs. September 02: ICU. Ventilator FiO2 45%. PEEP of 5. Continues to have some trach secretions. IV Zerbaxa IV tobramycin. TPN lipids to continue. Also Levophed. Patient started cooling blankets since yesterday for temperatures. Along with the nurse speech therapy records were reviewed from last few admissions. Patient with multiple MBS and bedside swallow eval. No trouble with swallowing. Patient put on a chopped diet. Thin liquids. Patient did spike a fever of 101.7 earlier today. Low ionized calcium. IV gluconate given. September 03: ICU. On ventilator FiO2 45%. PEEP of 5. Mild trach secretions. Getting IV TPN lipids. IV tobramycin. Zerbaxa was substituted to Avycaz. By ID. No fever per se since yesterday. For blood pressure patient is also on Levophed and vasopressin. September 04: ICU. On ventilator FiO2 45%. PEEP of 5. Clear trach secretions. Getting IV TPN lipids. IV tobramycin. And IV Avycaz. Remains afebrile.. On Levophed and vasopressin. Awake. 09/06/2024 Patient is seen and evaluated in ICU; remains on mechanical ventilator, actually his home ventilator, with settings of volume assist-control, rate 20, tidal volume 450, FiO2 45%, PEEP of 5. - patient has been refusing blood; no ABGs to. He is getting lactated Ringer's at 50 cc an hour, TPN at 65 cc an hour. - patient remains on the same antibiotics. - Labs reviewed which reveal white count 5.21, hemoglobin 7.9, hematocrit 27.5, and platelet count 64,000. Sodium 141, potassium 3.5, chlorides 102, CO2 32, BUN 25, and creatinine 0.35. Glucose is 152. Calcium is 8. Albumin is 2.1. -Chest x-ray is largely unchanged. Critical care managing mechanical ventilation; recommending to add scopolamine patch for increased secretion -Patient remains on Avycaz and tobramycin - Continue with current TPN 09/07 Patient remains in the ICU lethargic. He is s/p tracheostomy Overnight he was more hypoxic they have to increase PEEP to 8. Also has a lot of secretions when needed for secretions suctioning to try to become apneic per Staff. Patient currently receiving Avycaz and tobramycin. on TPN also 09/08 Patient remains in the ICU awake and alert status post tracheostomy. He has contractures of both upper and lower extremities He is complaining from pain in his lungs. He is status post flexible bronchoscopy and bronchoalveolar lavage yesterday. He has previous sputum culture positive for Pseudomonas currently covered with ceftazidime and tobramycin. He is also on Lovenox 90 mg 09/09 Patient still in the ICU on mechanical ventilation via tracheostomy. PEEP is 8.0 as is yesterday Also he spiked little fever to 100.7. IV vancomycin is added to tobramycin and ceftazidime He is getting also bronchoscopy follow-up culture results 09/10 Patient feels clinically the same, he still getting breathing via mechanical ventilation through his tracheostomy with PEEP of 8. Patient feels he is required suctioning through his tracheostomy tube. He denies chest pain or pain anywhere else he can communicate by head signs and gestures. Hemodynamically stable and afebrile hemoglobin 7.4 platelet count 73 Glucose is controlled potassium 3.3 He remains on broad-spectrum antibiotic Rocephin at this time tobramycin and IV vancomycin added yesterday because he had low-grade fever. He is getting TPN. IV fluid Ringer lactate was stopped and patient was started on IV Lasix 20 mg 3 times a day continue with therapeutic dose of Lovenox as well 09/11 Patient remains in the ICU Remains on mechanical ventilation via tracheostomy He status post bronchoalveolar lavage 2 days ago, culture is growing Pseudomonas aeruginosa and corynebacterium Patient remains on broad-spectrum antibiotics with IV vancomycin, tobramycin, ceftazidime On IV Lasix also is on therapeutic dose of Lovenox 90 mg twice daily No IV fluids 09/12 Patient remains in the ICU Clinically close to what he was over the last 2 days still getting oxygen via his tracheostomy He remains on broad-spectrum antibiotic with Ceftin this time and IV vancomycin. Also he is on IV Lasix 20 mg and therapeutic dose of Lovenox. 09/13 Patient remains in the ICU on mechanical ventilation via tracheostomy Patient looks better today, he breathing better Less secretion Fentanyl patch increased 09/14. Patient seen and examined. Patient continues to be on mechanical ventilation via trach mask. Currently on TPN. Currently on IV Zerbaxa and vancomycin 09/15. Patient seen and examined.Vital signs done showed the patient overnight, heart rate 106, blood pressure 107/40, currently on ventilation. Labs reviewed showed WBC 7.27, hemoglobin 7.5, sodium 148 on potassium 4.3, BUN 23, creatinine 0.47 09/16. Patient seen and examined labs reviewed showing WBC 5.45, hemoglobin 9.6, platelet count 131, sodium 146, potassium 4.1, BUN 20, creatinine 0.47. Continue small amount of Levophed. Currently on Zerbaxa and vancomycin. Currently on TPN September 17: ICU. Patient has taken a turn for the worse today. Significant thick white secretions from the trach. Sinus rhythm. Receiving TPN. Patient is on Levophed and vasopressor. Rather high dose. FiO2 100 [address] PEEP of 10. Dr. Ho earlier spoke to the patient/family. Remains full code September 18: ICU. Intubated FiO2 70 PEEP of 12. Sinus rhythm. Drips include IV propofol at 50 and Levophed at 0.13. Patient is off vasopressin. Patient secretions. Family at the bedside. September 19: ICU. Intubated. FiO2 50 and a PEEP of 12. Drips include IV Levophed and propofol. Also started on Lasix drip 10 mg an hour yesterday. Secretions present. September 20: ICU. Intubated. FiO2 50 and a PEEP of 12. Hemoglobin 6.3. Secondary to blood being given. Patient been on and off Levophed. On propofol. Lipids have been held. Continues with TPN. Lasix drip was discontinued. Lovenox has been held because of low hemoglobin. Unable anemia is felt to be combination of regular blood draws and possible element element of hemolysis from all the infection. No dark stool. Family at the bedside September 21: ICU. Intubated. Received 2 units of blood yesterday. Hemoglobin 7.6 today. Per nephrology renal replacement therapy. Dialysis access placed by Dr. Cadena. Patient earlier today on Levophed. Propofol. Getting TPN. Sinus rhythm. Urine output decreased September 22: ICU. Intubated. FiO2 15 of PEEP of 12. Seen earlier today. Dialysis being started. Been on IV Levophed propofol. Sinus rhythm. TPN. Sinus rhythm. September 23: ICU. Intubated. Due for another dialysis today. Saw the patient earlier today. Remains on IV Levophed propofol. Sinus rhythm. TPN. On fentanyl patch. Active Medications Albuterol/Ipratropium (Ipratropium-Albuterol 3 Ml Neb) 3 ml INHALATION RT-Q4H PRN PRN Reason: shortness of breath Last Admin: 09/23/24 15:46 Dose: 3 ml Artificial Tears (Artificial Tears-Hypromellose Drops 15 Ml Btl) 1 drops BOTH EYES QID PRN PRN Reason: Dry Eye(s) Last Admin: 09/04/24 12:52 Dose: 1 drops Chlorhexidine Gluconate (Chlorhexidine Gluconate 15 Ml Cup) 15 ml MUCOUS MEM BID ANNIE Last Admin: 09/23/24 08:45 Dose: 15 ml Dextrose/Water (Dextrose 50% Syringe 50 Ml) 25 ml IVP PER PROTOCOL PRN; Protocol PRN Reason: Hypoglycemia Dextrose/Water (Dextrose 50% Syringe 50 Ml) 50 ml IVP PER PROTOCOL PRN; Protocol PRN Reason: Hypoglycemia Fentanyl (Fentanyl 100mcg/Hr Patch) 1 patch TRANSDERM Q72H ANNIE; Protocol Last Admin: 09/22/24 15:04 Dose: 1 patch Hydrocortisone Sodium Succinate (Hydrocortisone Succinate 100 Mg/2 Ml Vial) 50 mg IV Q12HR ANNIE Last Admin: 09/23/24 08:45 Dose: 50 mg Hydromorphone HCl (Hydromorphone 1 Mg/Ml 1 Ml Syringe) 1 mg IVP Q3HR PRN PRN Reason: Moderate Pain (Scale 4 to 6) Last Admin: 09/23/24 18:22 Dose: 1 mg Anidulafungin 100 mg/ Sodium (Chloride) 130 mls @ 84 mls/hr IVPB DAILY ANNIE; Protocol Last Admin: 09/23/24 09:13 Dose: 84 mls/hr Propofol 1,000 mg/ IV Solution 100 mls @ 32.34 mls/hr IV .Q3H6M ANNIE; Protocol Last Admin: 09/23/24 17:33 Dose: 50 mcg/kg/min, 32.34 mls/hr Norepinephrine Bitartrate 8 mg (/ Sodium Chloride) 258 mls @ 6.513 mls/hr IV .Q24H ANNIE; Protocol Last Titration: 09/23/24 16:26 Dose: 0.03 mcg/kg/min, 6.513 mls/hr Parenteral Vitamin Supplement 10 ml/ Zinc/Copper/Manganese/Selenium 1 ml/ Calcium Gluconate 0.5 gm/ Sodium Acetate 80 meq/ Amino Acids/Dextrose 1,056 mls @ 33 mls/hr IV .Q24H ANNIE Stop: 09/24/24 05:00 Last Admin: 09/23/24 08:24 Dose: Not Given Parenteral Vitamin Supplement 10 ml/ Zinc/Copper/Manganese/Selenium 1 ml/ Sodium Acetate 80 meq/ Sodium Chloride 16 meq / Magnesium Sulfate 0.25 gm/Amino Acids/Dextrose 1,055.5 mls @ 33 mls/hr IV .Q24H ANNIE Insulin Human Lispro (Insulin Lispro (Humalog) 100 Unit/Ml 10 Ml Vl) 0 unit SQ Q6HR ANNIE; Protocol Last Admin: 09/23/24 18:06 Dose: Not Given Lorazepam (Lorazepam 1 Mg/0.5 Ml Vial) 0.5 mg IV Q6HR PRN PRN Reason: Anxiety Last Admin: 09/15/24 18:26 Dose: 0.5 mg Miscellaneous Information (Pneumonia Protocol Utilized 1 Each Misc) 1 each PO ONCE PRN PRN Reason: Per Protocol Miscellaneous Information (Potassium Replacement Protocol 1 Each Misc) 1 each MISCELLANE DAILY PRN; Protocol PRN Reason: Per Protocol Miscellaneous Information (Magnesium Replacement Protocol 1 Each Misc) 1 each MISCELLANE DAILY PRN; Protocol PRN Reason: Per Protocol Naloxone HCl (Naloxone 0.4 Mg/Ml 1 Ml Vial) 0.2 mg IV Q2M PRN PRN Reason: Opioid Reversal Nystatin (Nystatin 100,000 Unit/Gm Powd 15 Gm) 1 applic TOPICAL BID [facility]; Protocol Last Admin: 09/23/24 09:06 Dose: 1 applic Ondansetron HCl (Ondansetron 4 Mg/2 Ml Vial) 4 mg IVP Q6HR PRN PRN Reason: Nausea And Vomiting Last Admin: 09/01/24 19:41 Dose: 4 mg Pantoprazole Sodium (Pantoprazole 40 Mg/10 Ml Vial) 40 mg IV DAILY ANNIE Last Admin: 09/23/24 08:45 Dose: 40 mg Petrolatum (Zinc Oxide Paste (Z-Guard) 1 Applic) 1 applic TOPICAL BID PRN; Protocol PRN Reason: Wound Healing Social history: Patient started smoking at the age of [age] 1 pack a day stopped in 2016. Nonambulatory. Is cared by his son over. Who is also the [facility] Physical examination: VITAL SIGNS: 54, 36, 97 x 51, 98% on ventilator GENERAL:, sedated EYES: Pupils equal. Conjunctiva loan l. HEENT: External appearance of nose and ears normal, oral cavity dry NECK: JVD unable to assess; masses not palpable. Tracheostomy HEART: First and second heart sounds are normal; no edema. LUNGS: Respiratory rate increased, decreased breath sounds, some crackles ABDOMEN: Soft, nontender, liver spleen not palpable, no masses palpable. Double barrel ostomy. PSYCH: Able to answer questions by attempting to speak to normal. Not able phonate MUSCULOSKELETAL: Right BKA. Left foot drop. Left hand contracture. Right hand also with contracture but able to have some movements NEUROLOGICAL: Cranial nerves grossly intact; no facial asymmetry, slight movement in the right arm. Awake L INVESTIGATIONS, reviewed in the clinical context: : White count 9.0 hemoglobin 7.7 platelets 155 potassium 4.5 creatinine 1.69 September 22: White count 7.4 hemoglobin 7.3 platelets 114 potassium 5.4 BUN 110 creatinine 1.79 September 18: White count 14.9 hemoglobin 7.6 ABG show pH of 7.2PCO2 of 68P O2 was 77 potassium was 6.1 repeat 5.2 creatinine 0.82 September 17: White count 20 hemoglobin 8.5 platelets 199 potassium 4.2 BUN 25 creatinine 0.4. ABG: pH 7.17 pCO2 79 PO277. September 02: White count 3.6 hemoglobin 9.7 platelets 130 potassium 3.9 BUN 23 creatinine 0.36 ionized calcium 4.3 TSH 2.7 Sputum culture: Pseudomonas aeruginosa: Sensitive to Zosyn, tobramycin, ceftazidime Sputum culture: Pseudomonas aeruginosa August 30: White count 3.5 hemoglobin 10.0 platelets 133 potassium 3.5 creatinine 0.36 August 29, 2024: White count 6.2 hemoglobin 12.3 platelets 216 sodium 128 potassium 3.1 BUN 50 creatinine 0.46 lactic acid 2.1 calcium 10.8 phosphorus 3.0 troponin I 0.016 UA: Negative for nitrite Influenza type A, type B, RSV, SARS-CoV-2: Not detected EKG tracing personally reviewed by me-normal sinus rhythm Chest x-ray film personally reviewed by me-right basilar infiltrate Previous labs: Sputum culture July 20, 2024: Pseudomonas aeruginosa Assessment plan: - basal pneumonia. Previous admission sputum was positive for Pseudomonas aeruginosa-:: Slow to respond Has received different antibiotics. Currently: Aniedulefungin IV, IV ceftolozane tazobactam, IV vancomycin Being followed by pulmonary, and ID - Fluid overload Had received Lasix drip - Acute kidney injury from ATN from septic shock. Also consider vancomycin toxicity. Oliguric. Volume overload. Dialysis catheter placed by Dr. Cadena-September 21. Second t dialysis session this morning - Septic shock: Slow to respond Been on Levophed off-and-on. - Acute on chronic hypoxic and hypercapnic respiratory failure, vent dependent at night at home: Slow to respond On ventilator support. Propofol - Tracheostomy with trach collar -Acute normocytic anemia of chronic disease and hospital-acquired anemia from blood draws and possible hemolysis from infection 2 units of blood given September 20. - Thrombocytopenia likely from sepsis Follow - Right below-knee amputation - Chronic quadriparesis. Including left foot drop. Left arm contracture. Some right hand contracture. Some movement in the right arm - Crohn's disease with double barrel ostomy bag in place since 09/2021 - TPN and lipids Lipids have been held during propofol - Full code - DPOA, son BECKY Dialysis again today. Prognosis guarded. Past Medical History Past Medical History: CVA/TIA, Deep Vein Thrombosis (DVT), Pneumonia Additional Past Medical History / Comment(s): Hx CVA in 2012, DVT R arm, Crohns. colostomy Bag placed in 09/2021. History of Any Multi-Drug Resistant Organisms: MRSA, Other MDRO Date of last positivie culture/infection: 07/20/24-Other MDRO; 12/14/23-MRSA MDRO Source:: Other MDRO - sputum, BAL; MRSA- nasal Past Surgical History: Bowel Resection, Cholecystectomy, Orthopedic Surgery Additional Past Surgical History / Comment(s): R BKA, trach with chronic home vent Past Anesthesia/Blood Transfusion Reactions: No Reported Reaction Additional Past Anesthesia/Blood Transfusion Reaction / Comment(s): recalled from previous admission Smoking Status: Never smoker
[2024-09-23 23:09] LABS: Glucose,Whole Blood 123 mg/dL (70-110)
[2024-09-23 23:28] LABS: Glucose,Whole Blood 121 mg/dL (70-110)
[2024-09-24 04:21] LABS: Basophils # (A) 0.00 10*3/uL (0.00-0.10); Basophils % (A) 0.0 %; Eosinophils # (A) 0.05 10*3/uL (0.04-0.35); Eosinophils % (A) 0.7 %; HCT 22.4 % (39.6-50.0); HGB 7.0 g/dL (13.0-17.0); Immature Platelet Fraction 8.6 % (1.1-6.1); Lymphocytes # (A) 0.66 10*3/uL (0.90-5.00); Lymphocytes % (A) 9.9 %; MCH 25.9 pg (27.0-32.0); MCHC 31.3 g/dL (32.0-37.0); MCV 83.0 fL (80.0-97.0); Monocytes # (A) 0.29 10*3/uL (0.20-1.00); Monocytes % (A) 4.3 %; Neutrophils # (A) 5.61 10*3/uL (1.80-7.70); Neutrophils % (A) 84.2 %; Platelet Count 158 10*3/uL (140-440); RBC 2.70 10*6/uL (4.40-5.60); RDW 21.1 % (11.5-14.5); WBC 6.67 10*3/uL (4.50-10.00)
[2024-09-24 05:29] LABS: African American GFR (CKD) 62 (>60 ml/min/1.73 sqM); Anion Gap 13 mmol/L; Blood Urea Nitrogen 58 mg/dL (9-20); Calcium 8.3 mg/dL (8.4-10.2); Carbon Dioxide 22 mmol/L (22-30); Chloride 95 mmol/L (98-107); Glucose 111 mg/dL (74-99); Magnesium 1.7 mg/dL (1.6-2.3); Non-African American GFR(CKD) 53 (>60 ml/min/1.73 sqM); Potassium 4.0 mmol/L (3.5-5.1); Sodium 130 mmol/L (137-145)
[2024-09-24 05:34] LABS: ABG HCO3 25 mmol/L (21-25); ABG PCO2 42 mmHg (35-45); ABG PH 7.39 (7.35-7.45); ABG PO2 100 mmHg (83-108); ABG TCO2 26 mmol/L (19-24)
[2024-09-24 05:36] LABS: Allen Test Performed? no
[2024-09-24 05:39] LABS: Glucose,Whole Blood 114 mg/dL (70-110)
--- NOTE | 2024-09-24 06:58 | P.PN ---
Subjective Progress Note Date: 09/23/24 Principal diagnosis: Reason for follow-up is sepsis and pneumonia/candidemia Patient is a 49-year-old male with a past medical history significant for CVA TIA DVT pneumonia history of complicated Crohn's disease in this patient who did have multiple abdominal surgeries patient also have a tracheostomy has been brought to the hospital with Generalized weakness did have a fever concerning for pneumonia on today's evaluation that is 09/23/2024,the patient did not have any fever the patient remains to be intubated on the vent FiO2 is currently stable at 40% patient is requiring low-dose pressor support no significant purulent secretion through ET or any other changes reported by nursing staff. Patient white count is 9.02 creatinine is 1.69 BUN is 80 blood culture repeat from 09/22/2024 so far negative Objective - Vital Signs Vital signs: Vital Signs Temp 97.5 F L 09/23/24 12:00 Pulse 62 09/23/24 13:00 Resp 36 H 09/23/24 13:00 BP 119/62 09/23/24 13:00 Pulse Ox 97 09/23/24 13:00 FiO2 40 09/23/24 12:00 Intake & Output 09/22/24 09/23/24 09/23/24 18:59 06:59 18:59 Intake Total 1777 1372.948 667.496 Output Total 3296 81 30 Balance -1519 1291.948 637.496 Weight 113.3 kg 113.1 kg Intake: IV 1077 942 310 0.9 120 120 70 Pressure Bag, CVP and ART 57 72 42 TPN 900 750 198 Intake, IV Titration 200 430.948 357.496 Amount Anidulafungin 100 mg In 100 Sodium Chloride 0.9% 100 ml @ 84 mls/hr IVPB DAILY ANNIE Rx#:[id number] Norepinephrine 8 mg In 140.681 57.496 Sodium Chloride 0.9% 250 ml @ 0.03 MCG/KG/MIN 6. 513 mls/hr IV .Q24H ANNIE Rx#:[id number] propofoL 1,000 mg In 200 290.267 200 Empty Bag 1 bag @ 50 MCG/ KG/MIN 32.34 mls/hr IV . Q3H6M ANNIE Rx#:[id number] Hemodialysis 500 Output: Urine 46 81 30 Stool 750 Hemodialysis 1500 Hemodialysis Net Amount 1000 Other: Voiding Method Indwelling Catheter Indwelling Catheter Indwelling Catheter ABP, PAP, CO, CI - Last Documented Arterial Blood Pressure 61/50 - Exam GENERAL DESCRIPTION: Middle-age male intubated on the vent RESPIRATORY SYSTEM: Unlabored breathing , decreased breath sounds at bases HEART: S1 S2 regular rate and rhythm , ABDOMEN: Soft , no tenderness EXTREMITIES: Swelling to the leg - Labs CBC & Chem 7: 09/24/24 04:00 09/24/24 04:00 Labs: Abnormal Lab Results - Last 24 Hours (Table) 09/22/24 09/22/24 09/23/24 Range/Units 14:16 18:11 02:02 RBC (4.40-5.60) 10*6/uL Hgb (13.0-17.0) g/dL Hct (39.6-50.0) % MPV (9.5-12.2) fL Immature Gran # (0.00-0.04) 10*3/uL Neutrophils # (1.80-7.70) 10*3/uL Lymphocytes # (0.90-5.00) 10*3/uL Immature Plt Fraction (1.1-6.1) % ABG pH (7.35-7.45) ABG pO2 126 H (83-108) mmHg ABG Total CO2 25 H (19-24) mmol/L ABG O2 Saturation 99.4 H (94-97) % Hemoglobin 8.1 L (13.0-17.5) gm/dL Sodium (137-145) mmol/L Chloride (98-107) mmol/L Carbon Dioxide (22-30) mmol/L BUN (9-20) mg/dL Creatinine (0.66-1.25) mg/dL Glucose (74-99) mg/dL POC Glucose (mg/dL) 181 H 234 H (70-110) mg/dL Phosphorus (2.5-4.5) mg/dL 09/23/24 09/23/24 09/23/24 Range/Units 05:12 05:25 05:25 RBC 2.83 L (4.40-5.60) 10*6/uL Hgb 7.7 L (13.0-17.0) g/dL Hct 24.0 L (39.6-50.0) % MPV 12.6 H (9.5-12.2) fL Immature Gran # 0.06 H (0.00-0.04) 10*3/uL Neutrophils # 7.85 H (1.80-7.70) 10*3/uL Lymphocytes # 0.73 L (0.90-5.00) 10*3/uL Immature Plt Fraction 8.5 H (1.1-6.1) % ABG pH 7.31 L (7.35-7.45) ABG pO2 (83-108) mmHg ABG Total CO2 (19-24) mmol/L ABG O2 Saturation 98.0 H (94-97) % Hemoglobin 7.9 L (13.0-17.5) gm/dL Sodium 132 L (137-145) mmol/L Chloride 96 L (98-107) mmol/L Carbon Dioxide 20 L (22-30) mmol/L BUN 80 H (9-20) mg/dL Creatinine 1.69 H (0.66-1.25) mg/dL Glucose 141 H (74-99) mg/dL POC Glucose (mg/dL) (70-110) mg/dL Phosphorus 6.5 H (2.5-4.5) mg/dL 09/23/24 09/23/24 Range/Units 06:01 12:26 RBC (4.40-5.60) 10*6/uL Hgb (13.0-17.0) g/dL Hct (39.6-50.0) % MPV (9.5-12.2) fL Immature Gran # (0.00-0.04) 10*3/uL Neutrophils # (1.80-7.70) 10*3/uL Lymphocytes # (0.90-5.00) 10*3/uL Immature Plt Fraction (1.1-6.1) % ABG pH (7.35-7.45) ABG pO2 (83-108) mmHg ABG Total CO2 (19-24) mmol/L ABG O2 Saturation (94-97) % Hemoglobin (13.0-17.5) gm/dL Sodium (137-145) mmol/L Chloride (98-107) mmol/L Carbon Dioxide (22-30) mmol/L BUN (9-20) mg/dL Creatinine (0.66-1.25) mg/dL Glucose (74-99) mg/dL POC Glucose (mg/dL) 145 H 132 H (70-110) mg/dL Phosphorus (2.5-4.5) mg/dL Microbiology - Last 24 Hours (Table) 09/18/24 09:45 Blood Culture Gram Stain - Final Blood Blood Culture - Final [facility] parapsilosis group Molecular ID Assessment and Plan (1) Pneumonia Current Visit: Yes Status: Acute Code(s): J18.9 - PNEUMONIA, UNSPECIFIED ORGANISM SNOMED Code(s): 119799911 (2) Sepsis Current Visit: Yes Status: Acute Code(s): A41.9 - SEPSIS, UNSPECIFIED ORGANISM SNOMED Code(s): 51269966 (3) Candidemia Current Visit: Yes Status: Acute Code(s): B37.7 - CANDIDAL SEPSIS SNOMED Code(s): 445340434 Plan: 1patient is a hospital with sepsis in this patient who did have fever tachycardia elevated lactic acid upon meeting criteria for SIRS/sepsis source likely pneumonia 2-patient is status post bronchoscopy lavage results currently growing Pseudomonas that is resistant to Avycaz and corynebacterium, sensitivity on corynebacterium is pending 3-patient with Pseudomonas pneumonia for the patient has completed his antibiot ic therapy 4-patient did have candidemia source is likely left chest wall PICC line which has been discontinued has been sent for the culture central line placed by twisting frame fixer, blood culture repeat on 09/18/2024 positive blood culture repeat 09/22/2024 currently pending and the patient is being treated with Eraxis, prognosis guarded Dictation was produced using [employer] dictation software. please excuse any grammatical, word or spelling errors. Time with Patient: Less than 30
--- NOTE | 2024-09-24 07:41 | XR ---
EXAMINATION TYPE: XR chest 1V portable DATE OF EXAM: 09/24/2024 5:38 AM COMPARISON: Multiple radiographs, with the most recent on 09/23/2024 TECHNIQUE: XR chest 1V portable Portable AP radiograph of the chest. CLINICAL INDICATION:Male, 49 years old with history of mechanical ventilation; FINDINGS: Lungs/Pleura: Small right pleural effusion. Similar patchy airspace opacities within the right lung b ase with diffuse interstitial prominence. No pneumothorax. Heart/mediastinum: Cardiomediastinal silhouette is enlarged. Musculoskeletal: No acute osseous pathology. Other findings: Surgical clips within the right supraclavicular region. Lines/Tubes: Tracheostomy cannula tip projecting over the trachea. Right subclavian approach central venous catheter with distal tip at the superior cavoatrial junction . IMPRESSION: 1. Overall similar examination with right basilar airspace opacities and small right pleural effusio n. Diffuse interstitial prominence. Findings may represent pulmonary edema and/or pneumonia. 2. Stable support lines and tubes. [facility], , 09/24/2024 7:39 AM
[2024-09-24] MEDS: MAGNESIUM SULFATE-D5W PMX 1 GM in DEXTROSE/WATER 1 100ML.BAG IVPB ONE (08:03)
--- NOTE | 2024-09-24 10:06 | P.PN ---
Subjective Progress Note Date: 09/24/24 Principal diagnosis: Pneumonia. This is a 49-year-old white male familiar to my service, history of paraplegia, home vent dependent, history of tracheostomy, patient had multiple admissions to the ICU for recurrent episodes of pneumonia and respiratory failure requiring ventilatory support. On his last admission patient was eventually discharged home on a home ventilator, and this was back on 08/04/2024. Patient was discharged home with a PICC line, patient was in the ER yesterday on 08/28 for abnormal labs mostly low potassium and low sodium discharged home however he cam e back today complaining of shortness of breath, has been ventilator dependent all along. Chest x-ray showed basically bibasilar opacities/atelectasis, doubt pneumonia, the findings in the left lower lobe are chronic. Patient did have previous history of pneumonia involving the left lower lobe and he had multiple bronchoscopies in the past. Bronchial cultures and sputum cultures have been positive in the past for mostly Pseudomonas aeruginosa. Patient was seen in the ER today, and he is already on cefepime for empiric coverage for potential left lower lobe pneumonia, patient had abnormal electrolytes with relatively low sodium low potassium, no leukocytosis, normal renal profile, blood pressure was soft, and he was given fluid boluses. Lactic acid was 2.1, D-dimer is normal, patient was admitted, and this consult was initiated. 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 Patient was seen today on 08/30/2024, patient continues to have intermittent episodes of fever with Tmax of 102, patient required norepinephrine and he remains on norepinephrine at 0.04 mcg/kg/min remains on LR at 130 cc/h remains on his home ventilator at tidal volume of 450 rate of 20 FiO2 45% and PEEP of 5. Seems comfortable, not in distress, his WBC is 3.5 hemoglobin 10.0 electrolytes are normal renal profile is normal potassium is borderline low. Patient remains on cefepime, vancomycin was added because of his previous history of MRSA, and is on cefepime for previous history of pseudomonal infection and now that the patient may be septic it is more of a reason to broaden the spectrum of antibiotics coverage with cefepime and vancomycin. Sputum cultures and blood cultures are pending. Patient does have history of pseudomonal and history of MRSA infections, and I discontinued his Zithromax today replace Zithromax with vancomycin. Viral screen is negative Legionella antigen is negative. Chest x- ray is relatively unchanged continues to show bibasilar opacities atelectasis/pneumonia. Progress note dated August 31, 2024. The patient is seen today in room 252. The patient was admitted a couple days ago, to the intensive care unit. The patient is currently on mechanical ventilator, actually his home ventilator. He is on volume assist-control, rate 20, tidal volume 450, FiO2 45% PEEP of 5. The patient is getting lactated Ringer's at 130 cc an hour, TPN at 91 cc an hour, norepinephrine at 8 mcg/min. Doppler of the left upper extremity was negative. He continues on Zerbaxa, and vancomycin. We will check a procalcitonin level. Cultures thus far are negative. He does have a previous history of methicillin-resistant Staph aureus infection, and pseudomonal infections. White count was 2.21, hemoglobin 9.3, hematocrit 32, platelet count 1 61,000. D-dimer was 5.78. Sodium 132, potassium 4.3, chlorides 106, CO2 21, BUN 18, creatinine 0.28. Glucose was 141. Calcium 7.8. C. difficile study was negative. Urine Legionella antigen was negative. Microbiologic studies are currently negative. Chest x-ray shows bibasilar airspace opacities, possibly consistent with pneumonia. 09/01/24 - The patient is seen today in room 252. Admitted to the hospital and the intensive care unit on 08/29/2024. The patient is currently on mechanical ventilator, his one from home. He is on volume assist control, rate of 20, tidal volume of 450, FiO2 45% and PEEP of 5. He currently has LR running at 50 cc/h, TPN at 91 cc/h, Zerbaxa and tobramycin. Chest Xray done this morning showed stable airspace opacities. Cultures are positive for pseudomonas aeruginosa, awaiting sensitivities. WBCs 2.69, Hgb 8.9, Hct 31.5, PLT 153, Na 135, K 3.4, Cl 109, HCO3 19, BUN 22, Cr 0.34, Phos 2.4. 09/02/24 - He is seen today in room 252. Admitted to the hospital and ICU on 08/29/24. He continues on mechanical ventilator, his one from home. He remaines on volume assist control, rate of 20, tidal volume of 450, FiO2 45% and PEEP of 5. He continues to have LR running at 50 cc/h, TPN at 91 cc/h, norepinephrine at 0.13 mcg/kg/min, Zebraxa and Tobramycin. Chest XRay this morning showed stable airspace opacities. Continue to await sensitivity of pseudomonas sputum culture. Lab work shows WBCs 3.64, Hgb 9.7, Hct 33.5, PLT 130, Na 133, K 3.9, bicarb 21, BUN 23, Cr 0.36, Ca 7.8, Mg 2.4, Albumin 2.3. 09/03/24 - He is seen in room 252. Admitted to the hospital and ICU on 08/29/24. He continues on mechanical ventilator, his one from home. He remaines on volume assist control, rate of 20, tidal volume of 450, FiO2 45% and PEEP of 5. He continues to have LR running at 50 cc/h, TPN at 91 cc/h, norepinephrine at 0.24 mcg/kg/min, Avycaz and Tobramycin. Zebraxa was discontinued as there was no reported sensitivity to it. Lab work shows WBCs 9.40, Hgb 8.8, Hct 30.6, PLT 100, Na 130, K 3.6, bicarb 23, BUN 25, Cr 0.51, Ca 7.8, Ionized Ca 4.6, Phos 3.3, Mg 2.1, TSH 2.710 and random cortisol 13.1. 09/04/24 - He is seen in room 252. Admitted to the hospital and ICU on 08/29/24. He continues on mechanical ventilator, his one from home. He remaines on volume assist control, rate of 20, tidal volume of 450, FiO2 45% and PEEP of 5. He continues to have LR running at 50 cc/h, TPN at 91 cc/h, norepinephrine at 0.24 mcg/kg/min, Avycaz and Tobramycin. Lab work shows sodium 133, potassium 3.5, bicarb 24, BUN 27, creatinine 0.47, calcium 7.9, ionized calcium 4.6, magnesium 1.9, phosphorus 3.0, total bilirubin 1.7, AST 57, ALT 45, alkaline phosphatase 99. Progress note dated September 05, 2024. 49-year-old male well-known to our service. He is seen today in room 252. He continues on volume assist-control, rate 20, tidal 450, FiO2 45%, PEEP of 5. The patient has refused blood gases. Currently, he is getting TPN at 65 cc an hour, norepinephrine at 1 mcg/min, LR at 50 cc/h. Clinically, the patient is doing well. His chest x-ray remains about the same. Yesterday he was on a higher dose of norepinephrine, and also was on vasopressin. Both have been weaned off. Current labs include a sodium 136, potassium 4.1, chlorides 101, CO2 28, BUN 30, creatinine 0.37. Glucose 153. Albumin is 2.2. Previous sputum, from August 29 with positive for Pseudomonas aeruginosa. Chest x-ray is largely unchanged. Progress note dated September 06, 2024. 49-year-old male again seen today in the intensive care unit, room 252. He remains on mechanical ventilator, actually his home ventilator, with settings of volume assist-control, rate 20, tidal volume 450, FiO2 45%, PEEP of 5. No blood gases today. The patient has been refusing. He is getting lactated Ringer's at 50 cc an hour, TPN at 65 cc an hour. He continues on the same antibiotics. White count 5.21, hemoglobin 7.9, hematocrit 27.5, and platelet count 64,000. Sodium 141, potassium 3.5, chlorides 102, CO2 32, BUN 25, and creatinine 0.35. Glucose is 152. Calcium is 8. Albumin is 2.1. Chest x-ray is largely unchanged. Patient was seen today on 09/16/2024, patient is basically about the same. Hardly any improvement noted in the last few weeks since admission, patient remains intubated, mechanically ventilated, same ventilator settings, assist-control rate of 20 tidal volume 450 FiO2 60% and PEEP of 8 ABG was not done today, no easy access, attempted to place arterial lines in this patient, but could not pass a wire although the arteries including femoral artery and left brachial artery were easily cannulated. No further attempts made for arterial access. Patient remains on norepinephrine at 0.13 mcg/kg/min still on TPN at 75 cc/h still on Zerbaxa and vancomycin chest x-ray showed worsening today of bilateral infiltrates possibly some component of fluid overload and I recommended Lasix 20 mg IV push twice daily. Patient seems to be quite swollen and edematous. WBC count is 5.4 hemoglobin 7.6 electrolytes showed sodium of 146 potassium 4.1 BUN 20 creatinine 0.47 Patient was seen today on 09/17/2024, patient seems to be deteriorating steadily over the last 24 hours, he is developing profound hypotension requiring pressors in the form of Levophed at 0.4 mcg/kg/min he is also on vasopressin at 0.04 units/min he is on TPN at 75 cc/h hemoglobin is noted to be low at 6.9, patient has positive yeast in the blood/fungemia he is on fluconazole, this is being addressed by infectious disease on the case. Earlier ABG showed a pO2 of 77 pCO2 88 pH of 7.13, Vent settings were adjusted with increasing the rate to 36. He is now on tidal volume of 350 FiO2 100% PEEP is 10 and rate is 36. Another ABG is pending. But clearly patient is taking a downhill clinical course. Patient is quite septic, I will likely change his central line, and place a new central line in this patient today and remove the old central line/PICC line. Patient will receive a unit of packed RBCs for hemoglobin of 6.9. Considering the change in his overall clinical status, discussed his condition with son, would like to keep his dad as a full code, he is very well aware of the poor prognostic picture and how ill his dad is. Would like to keep him a full code. WBC count today is 20.03 hemoglobin 8.5, basic metabolic profile is normal BUN is 25 creatinine 0.4 total protein is 6.9 albumin is 1.9. Patient was seen today on 09/18/24, remains in the ICU, intubated and mechanically ventilated. Patient is still requiring assist-control rate of maximal ventilatory support with rate of 36 tidal volume increased today up to 400 FiO2 decreased from 100% to 70% PEEP remains at 12. Earlier ABG before changes were made at the FiO2 had been on tidal volume showed a pO2 of 77 pCO2 68 pH of 7.20. Patient is still requiring norepinephrine and I have been titrating the norepinephrine earlier this morning he is down to 0.18 from 0.46 yesterday micrograms per kilo per minute vasopressin is still at 0.04 units/min patient is on propofol at 50 mcg/kg/min Lasix drip at 20 mg/h and TPN at 75 cc/h. I am also treating the patient with vancomycin, Zerbaxa, and Eraxis was added to replace fluconazole yesterday by infectious disease specially with his positive blood cultures for Bella. Urine output is improving with the Lasix drip, he did not improve much with 1 dose of Lasix 60 mg IV push. Remains on Solu-Cortef at 100 mg IV push every 8 hours patient is in positive fluid balance about 6 L hence I decided to go with Lasix drip today. Labs today showed slight improvement in his WBC count down to 14.9 hemoglobin is 7.6, electrolytes are abnormal with a potassium of 6.1 BUN is 45 creatinine 0.82 chest x-ray continues show bilateral interstitial edema/infiltrates, could be cardiogenic or noncardiogenic pulmonary edema I believe it is mostly cardiogenic/related to fluid overload as he received significant fluids yesterday for low blood pressure. And he was not making much urine in the last 24 hours. Hence Lasix drip was started today. Patient was seen today on 09/19/2024, remains in the ICU, remains intubated and mechanically ventilated. Patient is on assist-control rate of 36 tidal volume 400 FiO2 65% and PEEP of 12. His ABG showed a pO2 of 142 pCO2 52 pH of 7.28, hence cut down his FiO2 down to 50%. The PEEP at 12. Patient remains hemodyn amically unstable, remains on norepinephrine at 0.08 mcg/kg/min, his vasopressin has been discontinued. TPN is at 75 cc/h. Remains on Lasix drip/infusion at 20 mg/h. He is on propofol at 50 mcg/kg/min remains on Solu-Cortef 50 mg every 8, Eraxis, Zerbaxa, vancomycin. Urine output is marginal at about 10 to 20 cc/h in spite of Lasix drip. Lovenox will be resumed today at 80 mg subcu twice daily. Patient is sedated, his overall clinical status is showing slight improvement compared to the clinical status couple of days ago. Chest x-ray continues to show evidence of interstitial edema although the possibility of ARDS is not entirely ruled out considering his overall septic picture. CBC is about the same with WBC of 7.7 hemoglobin 7.1. Platelets are 128,000. Basic metabolic profile is normal potassium is down to 5.2 BUN is 67 creatinine is slightly higher today 1.13. Blood sugar is 358. Patient was seen today on 09/20/2024, remains in the ICU intubated mechanically ventilated. On assist-control rate of 36 tidal volume 400 FiO2 50% PEEP of 12, no ABG done today, however his O2 saturation is in the high 90s about 98%. Patient had a low hemoglobin today and he will need a unit of blood/packed RBCs for low hemoglobin. No active bleeding noted, Hemoccult stools will be done t lizette. Patient remains on Eraxis and Zerbaxa, his vancomycin was discontinued remains on lower dose of Solu-Cortef 50 mg IV push every 12 hours. Continues to have poor urine output and his renal functioning is getting a bit worse. Nephrology was consulted, patient received initially significant amount of fluids for his presentation of sepsis, and he remained oliguric in spite of fluid boluses. Then he was placed on Lasix drip which initially was working fine, now that urine output is rather marginal and spite of Lasix drip at 20 mg an hour. I am recommending a trial of albumin followed by 80 mg of Lasix IV push. And hopefully his urine output will hot die picker with the albumin and with the blood transfusion which is scheduled to be done soon. Vancomycin has been discontinued. Chest x-ray continues to show evidence of interstitial edema. Labs are reviewed his potassium is 5 bicarb is 20 BUN is 83 creatinine 1.49 platelets are 105 hemoglobin 6.3. Progress note dated September 21, 2024. The patient remains on volume assist-control, rate 36, tidal volume 400, FiO2 50%, PEEP of 12. Blood gases were not obtained. He continues on TPN at 75 cc an hour, propofol at 50 mcg/kg/min, saline at 10 cc an hour, and norepinephrine is currently on hold. Antibiotic douglas, he continues on vancomycin, and Eraxis. White count is 6.9, hemoglobin 7.6, hematocrit 24.3, and platelet count 115,000. Sodium 137, potassium 5.1, chlorides 103, CO2 18, anion gap 16, BUN 99, creatinine 1.58. Glucose is 228. Calcium 8.1, phosphorus 5.4, magnesium 2.5. Culture data shows evidence of Pseudomonas aeruginosa back on August 29, Pseudomonas in the bronchial washings on September 07, and blood cultures positive, September 18, currently pending. Chest x-ray is largely unchanged, shows patchy diffuse airspace opacities, with a small right-sided pleural effusion. Progress note dated September 22, 2024. The patient is seen today in room 252. He remains on volume assist-control. Settings include volume assist-control 36, tidal volume 400, FiO2 50%, PEEP of 12. He is getting propofol at 50 mcg/kg/min, norepinephrine at 3 mcg/min, and TPN at 75 cc an hour. He is having hemodialysis today. The goal is removal of 1 to 2 L of fluid. He continues on Eraxis. We were able to place a right radial arterial line. We will repeat a blood gas, after hemodialysis. Current laboratory data includes a white count 7.4, hemoglobin 7.3, hematocrit 23.4, and a platelet count of 114,000. Sodium 134, potassium 5.4, chlorides 104, CO2 15, anion gap 15, BUN 110, creatinine 1.79. Glucose is 153. Calcium is 8.3. Previous blood in sputum sampling, showed evidence of Pseudomonas aeruginosa. The patient also has previous blood culture showing evidence of Bella species. Chest x-ray today is largely unchanged. Progress note dated September 23, 2024. 49-year-old male seen today in room 252. He remains on mechanical ventilation. He is on volume assist-control, rate 36, tidal volume 400, FiO2 40%, PEEP of 12. Blood gases show pO2 100, pCO2 44, pH is 7.30. Patient continues on norepinephrine at 5.6 mcg/min, propofol at 50 mcg/kg/min, TPN at 33 cc an hour. He is getting saline at 10 cc an hour. He had hemodialysis yesterday, September 22, and 1 L of fluid was removed. He continues on Eraxis, as per infectious diseases. White count is 9.0, hemoglobin 7.7, hematocrit 24, and platelet count is 155,000. Sodium 132, potassium 4.5, chlorides 96, CO2 20, anion gap 16, BUN 80, and creatinine 1.69. Glucose is 145. Calcium 8.5. Most recent blood cultures, on September 18, were positive for Bella. Today's chest x-ray is largely unchanged. Progress note dated September 24, 2024. 49-year-old male seen today in room 252. The patient continues on life support, IV volume assist-control, rate 36, tidal volume 400, FiO2 40%, PEEP of 12. Blood gases show pO2 100, pCO2 42, pH is 7.39. The patient is getting propofol at 15 mcg/kg/min, norepinephrine at 4 mcg/min, TPN at 33 cc an hour, and saline at 10 cc an hour. The patient's hemoglobin is 7. He continues on Eraxis. The patient static lung compliance is 23.5 mL/cm water. He has very stiff lungs. White count is 6.7, hemoglobin 7, hematocrit 22.4, platelet count 158,000. Sodium 130, potassium 4, chlorides 95, CO2 22, anion gap 13, BUN 58, creatinine 1.52. Glucose is 114. Calcium 8.3. Magnesium 1.7. No recent new culture data. Chest x-ray is about the same as it was a day before. It shows right basilar airspace opacities, with a small right-sided pleural effusion. There was some interstitial prominence. Objective - Vital Signs Vital signs: Vital Signs Temp 97.7 F 09/24/24 04:00 Pulse 72 09/24/24 08:11 Resp 36 H 09/24/24 07:00 BP 108/60 09/24/24 07:00 Pulse Ox 100 09/24/24 07:00 FiO2 40 09/24/24 07:59 Intake & Output 09/23/24 09/24/24 09/24/24 18:59 06:59 18:59 Intake Total 1661.561 986.557 100 Output Total 3570 1066 Balance -1908.439 -79.443 100 Weight 111.6 kg Intake: IV 555 637 0.9 120 130 Pressure Bag, CVP and ART 72 78 TPN 363 429 Intake, IV Titration 606.561 349.557 100 Amount Anidulafungin 100 mg In 100 Sodium Chloride 0.9% 100 ml @ 84 mls/hr IVPB DAILY [facility] Rx#:[id number] Norepinephrine 8 mg In 106.561 Sodium Chloride 0.9% 250 ml @ 0.03 MCG/KG/MIN 6. 513 mls/hr IV .Q24H ANNIE Rx#:[id number] propofoL 1,000 mg In 400 349.557 100 Empty Bag 1 bag @ 50 MCG/ KG/MIN 32.34 mls/hr IV . Q3H6M ANNIE Rx#:[id number] Hemodialysis 500 Output: Urine 70 66 Stool 1000 Hemodialysis 2000 Hemodialysis Net Amount 1500 Other: Voiding Method Indwelling Catheter Indwelling Catheter ABP, PAP, CO, CI - Last Documented Arterial Blood Pressure 50/42 - Exam No acute distress, currently connected to the ventilator. He has a tracheostomy tube in place. HEENT examination is grossly unremarkable. Mucous membranes are moist. No oral lesions. Neck supple. Full range of motion. No adenopathy thyromegaly or neck vein distention. Cardiovascular examination reveals regular rhythm rate. S1-S2 normal. No S3 or S4. No discernible murmur noted. Lungs reveal scattered rhonchi and crackles. No wheezes. Breath sounds equal bilaterally. Abdomen reveals an enterocutaneous fistula, normal bowel sounds. No tenderness. No masses. Extremities are intact. No cyanosis clubbing or edema. Right below the knee amputation. Has a right radial arterial line. Skin is without rash or lesion. Neurologic examination is brief but nonfocal. He does have significant muscle atrophy, and contractures. He has a right below the knee amputation. - Labs CBC & Chem 7: 09/24/24 04:00 09/24/24 04:00 Labs: Abnormal Lab Results - Last 24 Hours (Table) 09/23/24 09/23/24 09/23/24 Range/Units 12:26 18:04 23:07 RBC (4.40-5.60) 10*6/uL Hgb (13.0-17.0) g/dL Hct (39.6-50.0) % MCH (27.0-32.0) pg MCHC (32.0-37.0) g/dL Immature Gran # (0.00-0.04) 10*3/uL Lymphocytes # (0.90-5.00) 10*3/uL Immature Plt Fraction (1.1-6.1) % ABG Total CO2 (19-24) mmol/L ABG O2 Saturation (94-97) % Hemoglobin (13.0-17.5) gm/dL Sodium (137-145) mmol/L Chloride (98-107) mmol/L BUN (9-20) mg/dL Creatinine (0.66-1.25) mg/dL Glucose (74-99) mg/dL POC Glucose (mg/dL) 132 H 144 H 123 H (70-110) mg/dL Calcium (8.4-10.2) mg/dL Phosphorus (2.5-4.5) mg/dL 09/23/24 09/24/24 09/24/24 Range/Units 23:26 04:00 04:00 RBC 2.70 L (4.40-5.60) 10*6/uL Hgb 7.0 L (13.0-17.0) g/dL Hct 22.4 L (39.6-50.0) % MCH 25.9 L (27.0-32.0) pg MCHC 31.3 L (32.0-37.0) g/dL Immature Gran # 0.06 H (0.00-0.04) 10*3/uL Lymphocytes # 0.66 L (0.90-5.00) 10*3/uL Immature Plt Fraction 8.6 H (1.1-6.1) % ABG Total CO2 (19-24) mmol/L ABG O2 Saturation (94-97) % Hemoglobin (13.0-17.5) gm/dL Sodium 130 L (137-145) mmol/L Chloride 95 L (98-107) mmol/L BUN 58 H (9-20) mg/dL Creatinine 1.52 H (0.66-1.25) mg/dL Glucose 111 H (74-99) mg/dL POC Glucose (mg/dL) 121 H (70-110) mg/dL Calcium 8.3 L (8.4-10.2) mg/dL Phosphorus 6.2 H (2.5-4.5) mg/dL 09/24/24 09/24/24 Range/Units 05:30 05:37 RBC (4.40-5.60) 10*6/uL Hgb (13.0-17.0) g/dL Hct (39.6-50.0) % MCH (27.0-32.0) pg MCHC (32.0-37.0) g/dL Immature Gran # (0.00-0.04) 10*3/uL Lymphocytes # (0.90-5.00) 10*3/uL Immature Plt Fraction (1.1-6.1) % ABG Total CO2 26 H (19-24) mmol/L ABG O2 Saturation 98.2 H (94-97) % Hemoglobin 7.8 L (13.0-17.5) gm/dL Sodium (137-145) mmol/L Chloride (98-107) mmol/L BUN (9-20) mg/dL Creatinine (0.66-1.25) mg/dL Glucose (74-99) mg/dL POC Glucose (mg/dL) 114 H (70-110) mg/dL Calcium (8.4-10.2) mg/dL Phosphorus (2.5-4.5) mg/dL Microbiology - Last 24 Hours (Table) 09/22/24 18:46 Blood Culture - Preliminary Blood Assessment and Plan Assessment: Septic shock, likely secondary to Pseudomonas pneumonia. Probable fungemia, currently on Eraxis. Chronic hypoxemic and hypercapnic respiratory failure, ventilator dependent, on a home ventilator, S/P tracheostomy. Left lower lobe atelectasis, possible pneumonia, with pseudomonal infection. History of severe tracheal stenosis, S/P tracheostomy. History of recurrent pneumonia, involving the left lower lobe. Tracheobronchomalacia. History of DVT. History of CVA. History of right below-knee amputation. Previous history of asystole/cardiac arrest, 2021. History of Crohn's disease, S/P enterocutaneous fistula, diverting ileostomy. Plan: Plan dated August 31, 2024. The patient is seen today in room 252. The patient's weight had on fluids, and the lactated Ringer's is cut back to 40 cc an hour. The patient will get 1 dose of Lasix IV push. Ventilator settings are noted. No blood gases today. It was apparently refused by the patient. Doppler of the left upper extremity was negative for DVT. Will check a procalcitonin level. The patient continues on norepinephrine at 8 mcg/min. He is getting TPN at 91 cc an hour. We will continue to follow make recommendations along the way. Labs, x-rays, and all medications are reviewed. Prognosis is certainly guarded. Dictation was produced using [employer] dictation software. Please excuse any grammatical, word or spelling errors. Plan dated September 05, 2024. The patient is seen today in room 252. He is connected to his home mechanical ventilator. Settings of the same and include volume assist-control, rate 20, tidal volume 450, FiO2 45%, PEEP of 5. The patient is getting TPN at 65 cc an hour, norepinephrine has been weaned down to 1 mcg/min. He is getting lactated Ringer's at 50 cc an hour. He continues on Avycaz and tobramycin. We will continue to follow make recommendations. The patient also continues on hydrocortisone, for relative adrenal insufficiency. Prognosis is certainly gua rded. We will continue to follow. Dictation was produced using [employer] software. Please excuse any grammatical, word or spelling errors. Plan dated September 06, 2024. The patient is seen today in room 252. He continues on mechanical ventilation. The patient is having increased secretions. Will add a scopolamine patch. He continues on Avycaz, and tobramycin. In addition, he continues on TPN at 65 cc an hour, and lactated Ringer's at 50 cc an hour. All labs, x-rays, and medications are reviewed. Chest x-ray is unchanged. We will continue to follow make recommendations. Prognosis is guarded. Dictation was produced using [employer] software. Please excuse any grammatical, word or spelling errors. Plan dated September 21, 2024. The patient is again seen today in room 252, with presumed ongoing sepsis. The patient has norepinephrine on standby, for blood pressure support, and recently was maxed out on multiple vasopressors. Currently, the patient continues on Eraxis, and vancomycin. The patient also continues on TPN at 75 cc an hour, propofol at 50 mcg/kg/min. All labs, x-rays, medications are reviewed. The patient's overall prognosis remains very poor. We will continue to follow. He remains a full code. Dictation was produced using [employer] software. Please excuse any grammatical, word or spelling errors. Plan dated September 22, 2024. The patient was seen to get her up to 52. We were able to place a right radial art line in the patient. There was good blood return from the arterial line, although the waveform was dampened. The patient continues on appropriate medications, including propofol at 50 mcg/kg/min, norepinephrine at 3 mcg/min. The patient is also getting TPN at 75 cc an hour. He is receiving hemodialysis today. He continues on Eraxis. After hemodialysis, the patient will have a arterial blood gas. Additional recommendations and suggestions are forthcoming. Prognosis is guarded. All labs, x-rays, and medications are reviewed. We will continue to follow the patient, make recommendations. Dictation was produced us ing [employer] software. Please excuse any grammatical, word or spelling errors. Plan dated September 23, 2024. The patient is again seen today in room 252. The patient's blood gases show pO2 100, pCO2 44, pH of 7.31. Patient continues on norepinephrine at 5.6 mcg/min, propofol at 50 mcg/kg/min. The patient is getting TPN at 33 cc an hour. The patient continues on Eraxis. He had hemodialysis yesterday. All labs, x-rays, and medications are reviewed. The patient remains a full code. Will continue to follow the patient, make recommendations along the way. Prognosis is guarded. Dictation was produced using [employer] software. Please excuse any grammatical, word or spelling errors. Plan dated September 24, 2024. According to the nurses, the patient had an uneventful night. He continues on volume assist-control, with a rate of 36, tidal volume 400, FiO2 40%, PEEP of 12. Blood gases are adequate with a pO2 of 100, pCO2 of 42, pH of 7.39. The patient continues on sedation with propofol at 50 mcg/kg/min. For his lower blood pressure, he is on norepinephrine at 4 mcg/min. He continues on parenteral nutrition, with TPN at 33 cc an hour. He also continues on Eraxis for fungemia. Hemoglobin is 7. No transfusion at this time. All labs, x-rays, and medications are reviewed. We will continue to follow the patient, make recommendations. The patient's overall prognosis remains poor. Dictation was produced using [employer] software. Please excuse any grammatical, word or spelling errors. Time with Patient: Greater than 30
[2024-09-24 11:31] LABS: Glucose,Whole Blood 103 mg/dL (70-110)
--- NOTE | 2024-09-24 12:36 | P.PN ---
Subjective Patient is seen for follow-up for acute kidney injury. Patient remains on the vent. He is awake. Started hemodialysis on 09/22/2024 for volume overload and worsening acute kidney injury Levophed at 0.03 mcg/kg No significant urine output FiO2 at 50% Patient will be dialyzed again today. UF 1.5 L yesterday Objective - Vital Signs Vital signs: Vital Signs Temp 96.2 F L 09/24/24 08:00 Pulse 74 09/24/24 12:28 Resp 36 H 09/24/24 10:15 BP 101/57 09/24/24 10:15 Pulse Ox 99 09/24/24 10:15 FiO2 40 09/24/24 12:07 Intake & Output 09/23/24 09/24/24 09/24/24 18:59 06:59 18:59 Intake Total 1661.561 986.557 609.858 Output Total 3570 1066 15 Balance -1908.439 -79.443 594.858 Weight 111.6 kg Intake: IV 555 637 196 0.9 120 130 40 Pressure Bag, CVP and ART 72 78 24 TPN 363 429 132 Intake, IV Titration 606.561 349.557 413.858 Amount Anidulafungin 100 mg In 100 100 Sodium Chloride 0.9% 100 ml @ 84 mls/hr IVPB DAILY ANNIE Rx#:[id number] Norepinephrine 8 mg In 106.561 122.228 Sodium Chloride 0.9% 250 ml @ 0.03 MCG/KG/MIN 6. 513 mls/hr IV .Q24H ANNIE Rx#:[id number] propofoL 1,000 mg In 400 349.557 191.63 Empty Bag 1 bag @ 50 MCG/ KG/MIN 32.34 mls/hr IV . Q3H6M ANNIE Rx#:[id number] Hemodialysis 500 Output: Urine 70 66 15 Stool 1000 Hemodialysis 2000 Hemodialysis Net Amount 1500 Other: Voiding Method Indwelling Catheter Indwelling Catheter ABP, PAP, CO, CI - Last Documented Arterial Blood Pressure 50/42 - Exam Patient is on the vent Examination of the heart S1 and S2 Tracheostomy noted Examination of the lungs bilateral breath sounds are heard Abdomen is distended Examination of lower extremities shows right BKA and significant edema in the left leg as well as scrotal edema noted. - Labs CBC & Chem 7: 09/24/24 04:00 09/24/24 04:00 Labs: Abnormal Lab Results - Last 24 Hours (Table) 09/23/24 09/23/24 09/23/24 Range/Units 18:04 23:07 23:26 RBC (4.40-5.60) 10*6/uL Hgb (13.0-17.0) g/dL Hct (39.6-50.0) % MCH (27.0-32.0) pg MCHC (32.0-37.0) g/dL Immature Gran # (0.00-0.04) 10*3/uL Lymphocytes # (0.90-5.00) 10*3/uL Immature Plt Fraction (1.1-6.1) % ABG Total CO2 (19-24) mmol/L ABG O2 Saturation (94-97) % Hemoglobin (13.0-17.5) gm/dL Sodium (137-145) mmol/L Chloride (98-107) mmol/L BUN (9-20) mg/dL Creatinine (0.66-1.25) mg/dL Glucose (74-99) mg/dL POC Glucose (mg/dL) 144 H 123 H 121 H (70-110) mg/dL Calcium (8.4-10.2) mg/dL Phosphorus (2.5-4.5) mg/dL 09/24/24 09/24/24 09/24/24 Range/Units 04:00 04:00 05:30 RBC 2.70 L (4.40-5.60) 10*6/uL Hgb 7.0 L (13.0-17.0) g/dL Hct 22.4 L (39.6-50.0) % MCH 25.9 L (27.0-32.0) pg MCHC 31.3 L (32.0-37.0) g/dL Immature Gran # 0.06 H (0.00-0.04) 10*3/uL Lymphocytes # 0.66 L (0.90-5.00) 10*3/uL Immature Plt Fraction 8.6 H (1.1-6.1) % ABG Total CO2 26 H (19-24) mmol/L ABG O2 Saturation 98.2 H (94-97) % Hemoglobin 7.8 L (13.0-17.5) gm/dL Sodium 130 L (137-145) mmol/L Chloride 95 L (98-107) mmol/L BUN 58 H (9-20) mg/dL Creatinine 1.52 H (0.66-1.25) mg/dL Glucose 111 H (74-99) mg/dL POC Glucose (mg/dL) (70-110) mg/dL Calcium 8.3 L (8.4-10.2) mg/dL Phosphorus 6.2 H (2.5-4.5) mg/dL 09/24/24 Range/Units 05:37 RBC (4.40-5.60) 10*6/uL Hgb (13.0-17.0) g/dL Hct (39.6-50.0) % MCH (27.0-32.0) pg MCHC (32.0-37.0) g/dL Immature Gran # (0.00-0.04) 10*3/uL Lymphocytes # (0.90-5.00) 10*3/uL Immature Plt Fraction (1.1-6.1) % ABG Total CO2 (19-24) mmol/L ABG O2 Saturation (94-97) % Hemoglobin (13.0-17.5) gm/dL Sodium (137-145) mmol/L Chloride (98-107) mmol/L BUN (9-20) mg/dL Creatinine (0.66-1.25) mg/dL Glucose (74-99) mg/dL POC Glucose (mg/dL) 114 H (70-110) mg/dL Calcium (8.4-10.2) mg/dL Phosphorus (2.5-4.5) mg/dL Microbiology - Last 24 Hours (Table) 09/22/24 18:46 Blood Culture - Preliminary Blood Assessment and Plan Assessment: 1. Acute kidney injury secondary to ATN secondary to septic shock and vancomycin toxicity. Vancomycin level 49.3 on 09/19/2024. Patient remains oliguric with significant volume overload noted. Started hemodialysis on 09/22/2024. 2. Septic shock secondary to pneumonia and fungemia. Currently off Levophed. 3. Acute blood loss anemia with hemoglobin of 6.3 today. Currently receiving a unit of blood. 4. Volume overload. 5. Chronic hypoxic and hypercapnic respiratory failure, home ventilator dependent. 6. History of cardiac arrest. 8. Status post right BKA. Plan: Dialysis today and repeat in a.m. continue to increase UF as tolerated. Continue antibiotics and antifungal treatment as per ID Continue with TPN Monitor electrolytes.
[2024-09-24] MEDS: [UNRECOGNIZED DRUG - REMARK] IV SCH (13:01)
[2024-09-24 17:17] LABS: Glucose,Whole Blood 119 mg/dL (70-110)
--- NOTE | 2024-09-24 19:41 | P.PN ---
Progress Note - Text Progress Note Date: 09/24/24 Chief Complaint: Short of breath 49-year-old patient, follows with Dr. Murcia History of paraplegia, home vent at night, tracheostomy multiple admissions to the ICU for recurrent pneumonia. Patient's previous bronchial cultures been positive for Pseudomonas. He was discharged recently on IV cefepime. Also has a history of Crohn's disease with previous colectomy diverting ileostomy. History of DVT for which patient is on subcu Lovenox. Also had drug-resistant MRSA Pseudomonas. Patient currently does not have areas significant trach secretions. He has continues TPN. Has a right BKA. He does have slight movement in the right hand. Able to follow commands by nodding his head. Answering questions. He is scared by his elder son open. I was also the DPOA. August 30: Overnight patient started having more secretions through the tracheostomy. Vancomycin was added. Also blood pressure running low patient was put on Levophed drip. Otherwise sinus rhythm. Patient remains on the ventilator. Will also send off stool for C. difficile. Also patient IV cefepime. Getting TPN. August 31: ICU. Patient had positive fluid balance. Was given IV Lasix earlier. Remains on Levophed. Spiking fevers. Getting TPN. Stool negative for C. difficile. Patient is growing MDRO Pseudomonas aeruginosa. ID is ordered IV Zerbaxa. Which is currently not available. Patient's friend is visiting him in the ICU. Light trach secretion September 01: ICU. On the ventilator. FiO2 45%. PEEP of 5. Continues to have light trach secretions. Sputum cultures again growing Pseudomonas. Zerbaxa was obtained and resumed. Blood pressure running low. On Levophed. Patient's younger son at the bedside. Colostomy working fine. Has been spiking fevers. Cooling blanket. Ice packs. September 02: ICU. Ventilator FiO2 45%. PEEP of 5. Continues to have some trach secretions. IV Zerbaxa IV tobramycin. TPN lipids to continue. Also Levophed. Patient started cooling blankets since yesterday for temperatures. Along with the nurse speech therapy records were reviewed from last few admissions. Patient with multiple MBS and bedside swallow eval. No trouble with swallowing. Patient put on a chopped diet. Thin liquids. Patient did spike a fever of 101.7 earlier today. Low ionized calcium. IV gluconate given. September 03: ICU. On ventilator FiO2 45%. PEEP of 5. Mild trach secretions. Getting IV TPN lipids. IV tobramycin. Zerbaxa was substituted to Avycaz. By ID. No fever per se since yesterday. For blood pressure patient is also on Levophed and vasopressin. September 04: ICU. On ventilator FiO2 45%. PEEP of 5. Clear trach secretions. Getting IV TPN lipids. IV tobramycin. And IV Avycaz. Remains afebrile.. On Levophed and vasopressin. Awake. 09/06/2024 Patient is seen and evaluated in ICU; remains on mechanical ventilator, actually his home ventilator, with settings of volume assist-control, rate 20, tidal volume 450, FiO2 45%, PEEP of 5. - patient has been refusing blood; no ABGs to. He is getting lactated Ringer's at 50 cc an hour, TPN at 65 cc an hour. - patient remains on the same antibiotics. - Labs reviewed which reveal white count 5.21, hemoglobin 7.9, hematocrit 27.5, and platelet count 64,000. Sodium 141, potassium 3.5, chlorides 102, CO2 32, BUN 25, and creatinine 0.35. Glucose is 152. Calcium is 8. Albumin is 2.1. -Chest x-ray is largely unchanged. Critical care managing mechanical ventilation; recommending to add scopolamine patch for increased secretion -Patient remains on Avycaz and tobramycin - Continue with current TPN 09/07 Patient remains in the ICU lethargic. He is s/p tracheostomy Overnight he was more hypoxic they have to increase PEEP to 8. Also has a lot of secretions when needed for secretions suctioning to try to become apneic per Staff. Patient currently receiving Avycaz and tobramycin. on TPN also 09/08 Patient remains in the ICU awake and alert status post tracheostomy. He has contractures of both upper and lower extremities He is complaining from pain in his lungs. He is status post flexible bronchoscopy and bronchoalveolar lavage yesterday. He has previous sputum culture positive for Pseudomonas currently covered with ceftazidime and tobramycin. He is also on Lovenox 90 mg 09/09 Patient still in the ICU on mechanical ventilation via tracheostomy. PEEP is 8.0 as is yesterday Also he spiked little fever to 100.7. IV vancomycin is added to tobramycin and ceftazidime He is getting also bronchoscopy follow-up culture results 09/10 Patient feels clinically the same, he still getting breathing via mechanical ventilation through his tracheostomy with PEEP of 8. Patient feels he is required suctioning through his tracheostomy tube. He denies chest pain or pain anywhere else he can communicate by head signs and gestures. Hemodynamically stable and afebrile hemoglobin 7.4 platelet count 73 Glucose is controlled potassium 3.3 He remains on broad-spectrum antibiotic Rocephin at this time tobramycin and IV vancomycin added yesterday because he had low-grade fever. He is getting TPN. IV fluid Ringer lactate was stopped and patient was started on IV Lasix 20 mg 3 times a day continue with therapeutic dose of Lovenox as well 09/11 Patient remains in the ICU Remains on mechanical ventilation via tracheostomy He status post bronchoalveolar lavage 2 days ago, culture is growing Pseudomonas aeruginosa and corynebacterium Patient remains on broad-spectrum antibiotics with IV vancomycin, tobramycin, ceftazidime On IV Lasix also is on therapeutic dose of Lovenox 90 mg twice daily No IV fluids 09/12 Patient remains in the ICU Clinically close to what he was over the last 2 days still getting oxygen via his tracheostomy He remains on broad-spectrum antibiotic with Ceftin this time and IV vancomycin. Also he is on IV Lasix 20 mg and therapeutic dose of Lovenox. 09/13 Patient remains in the ICU on mechanical ventilation via tracheostomy Patient looks better today, he breathing better Less secretion Fentanyl patch increased 09/14. Patient seen and examined. Patient continues to be on mechanical ventilation via trach mask. Currently on TPN. Currently on IV Zerbaxa and vancomycin 09/15. Patient seen and examined.Vital signs done showed the patient overnight, heart rate 106, blood pressure 107/40, currently on ventilation. Labs reviewed showed WBC 7.27, hemoglobin 7.5, sodium 148 on potassium 4.3, BUN 23, creatinine 0.47 09/16. Patient seen and examined labs reviewed showing WBC 5.45, hemoglobin 9.6, platelet count 131, sodium 146, potassium 4.1, BUN 20, creatinine 0.47. Continue small amount of Levophed. Currently on Zerbaxa and vancomycin. Currently on TPN September 17: ICU. Patient has taken a turn for the worse today. Significant thick white secretions from the trach. Sinus rhythm. Receiving TPN. Patient is on Levophed and vasopressor. Rather high dose. FiO2 100 [address] PEEP of 10. Dr. Ho earlier spoke to the patient/family. Remains full code September 18: ICU. Intubated FiO2 70 PEEP of 12. Sinus rhythm. Drips include IV propofol at 50 and Levophed at 0.13. Patient is off vasopressin. Patient secretions. Family at the bedside. September 19: ICU. Intubated. FiO2 50 and a PEEP of 12. Drips include IV Levophed and propofol. Also started on Lasix drip 10 mg an hour yesterday. Secretions present. September 20: ICU. Intubated. FiO2 50 and a PEEP of 12. Hemoglobin 6.3. Secondary to blood being given. Patient been on and off Levophed. On propofol. Lipids have been held. Continues with TPN. Lasix drip was discontinued. Lovenox has been held because of low hemoglobin. Unable anemia is felt to be combination of regular blood draws and possible element element of hemolysis from all the infection. No dark stool. Family at the bedside September 21: ICU. Intubated. Received 2 units of blood yesterday. Hemoglobin 7.6 today. Per nephrology renal replacement therapy. Dialysis access placed by Dr. Cadena. Patient earlier today on Levophed. Propofol. Getting TPN. Sinus rhythm. Urine output decreased September 22: ICU. Intubated. FiO2 15 of PEEP of 12. Seen earlier today. Dialysis being started. Been on IV Levophed propofol. Sinus rhythm. TPN. Sinus rhythm. September 23: ICU. Intubated. Due for another dialysis today. Saw the patient earlier today. Remains on IV Levophed propofol. Sinus rhythm. TPN. On fentanyl patch. September 24: ICU. Intubated. FiO2 40 and PEEP of 12. Remains on IV Levophed and propofol. IV TPN. Decrease trach secretions. IV antibiotics. Was due for dialysis earlier today. Active Medications Albuterol/Ipratropium (Ipratropium-Albuterol 3 Ml Neb) 3 ml INHALATION RT-Q4H PRN PRN Reason: shortness of breath Last Admin: 09/24/24 15:25 Dose: 3 ml Artificial Tears (Artificial Tears-Hypromellose Drops 15 Ml Btl) 1 drops BOTH EYES QID PRN PRN Reason: Dry Eye(s) Last Admin: 09/04/24 12:52 Dose: 1 drops Chlorhexidine Gluconate (Chlorhexidine Gluconate 15 Ml Cup) 15 ml MUCOUS MEM BID ANNIE Last Admin: 09/24/24 08:50 Dose: 15 ml Dextrose/Water (Dextrose 50% Syringe 50 Ml) 25 ml IVP PER PROTOCOL PRN; Protocol PRN Reason: Hypoglycemia Dextrose/Water (Dextrose 50% Syringe 50 Ml) 50 ml IVP PER PROTOCOL PRN; Protoco l PRN Reason: Hypoglycemia Fentanyl (Fentanyl 100mcg/Hr Patch) 1 patch TRANSDERM Q72H ANNIE; Protocol Last Admin: 09/22/24 15:04 Dose: 1 patch Hydrocortisone Sodium Succinate (Hydrocortisone Succinate 100 Mg/2 Ml Vial) 50 mg IV Q12HR ANNIE Last Admin: 09/24/24 08:51 Dose: 50 mg Hydromorphone HCl (Hydromorphone 1 Mg/Ml 1 Ml Syringe) 1 mg IVP Q3HR PRN PRN Reason: Moderate Pain (Scale 4 to 6) Last Admin: 09/24/24 15:46 Dose: 1 mg Anidulafungin 100 mg/ Sodium (Chloride) 130 mls @ 84 mls/hr IVPB DAILY ANNIE; Protocol Last Admin: 09/24/24 10:05 Dose: 84 mls/hr Propofol 1,000 mg/ IV Solution 100 mls @ 32.34 mls/hr IV .Q3H6M ANNIE; Protocol Last Admin: 09/24/24 16:47 Dose: 50 mcg/kg/min, 32.34 mls/hr Norepinephrine Bitartrate 8 mg (/ Sodium Chloride) 258 mls @ 6.513 mls/hr IV . Q24H ANNIE; Protocol Last Titration: 09/24/24 17:03 Dose: 0.04 mcg/kg/min, 8.684 mls/hr Parenteral Vitamin Supplement 10 ml/ Zinc/Copper/Manganese/Selenium 1 ml/ Sodium Acetate 80 meq/ Sodium Chloride 16 meq / Magnesium Sulfate 0.25 gm/Amino Acids/Dextrose 1,055.5 mls @ 33 mls/hr IV .Q24H ANNIE Last Admin: 09/24/24 13:01 Dose: 33 mls/hr Insulin Human Lispro (Insulin Lispro (Humalog) 100 Unit/Ml 10 Ml Vl) 0 unit SQ Q6HR ANNIE; Protocol Last Admin: 09/24/24 17:45 Dose: Not Given Lorazepam (Lorazepam 1 Mg/0.5 Ml Vial) 0.5 mg IV Q6HR PRN PRN Reason: Anxiety Last Admin: 09/15/24 18:26 Dose: 0.5 mg Miscellaneous Information (Pneumonia Protocol Utilized 1 Each Misc) 1 each PO ONCE PRN PRN Reason: Per Protocol Miscellaneous Information (Potassium Replacement Protocol 1 Each Misc) 1 each MISCELLANE DAILY PRN; Protocol PRN Reason: Per Protocol Miscellaneous Information (Magnesium Replacement Protocol 1 Each Misc) 1 each MISCELLANE DAILY PRN; Protocol PRN Reason: Per Protocol Naloxone HCl (Naloxone 0.4 Mg/Ml 1 Ml Vial) 0.2 mg IV Q2M PRN PRN Reason: Opioid Reversal Nystatin (Nystatin 100,000 Unit/Gm Powd 15 Gm) 1 applic TOPICAL BID ANNIE; Protocol Last Admin: 09/24/24 10:52 Dose: 1 applic Ondansetron HCl (Ondansetron 4 Mg/2 Ml Vial) 4 mg IVP Q6HR PRN PRN Reason: Nausea And Vomiting Last Admin: 09/01/24 19:41 Dose: 4 mg Pantoprazole Sodium (Pantoprazole 40 Mg/10 Ml Vial) 40 mg IV DAILY ANNIE Last Admin: 09/24/24 08:50 Dose: 40 mg Petrolatum (Zinc Oxide Paste (Z-Guard) 1 Applic) 1 applic TOPICAL BID PRN; Protocol PRN Reason: Wound Healing Social history: Patient started smoking at the age of [age] 1 pack a day stopped in 2016. Nonambulatory. Is cared by his son over. Who is also the DPOA Physical examination: VITAL SIGNS: 97.4, 53, 36, 120 x 62, 96% on the ventilator GENERAL:, sedated EYES: Pupils equal. Conjunctiva loan l. HEENT: External appearance of nose and ears normal, oral cavity dry NECK: JVD unable to assess; masses not palpable. Tracheostomy HEART: First and second heart sounds are normal; no edema. LUNGS: Respiratory rate increased, decreased breath sounds, some crackles ABDOMEN: Soft, nontender, liver spleen not palpable, no masses palpable. Double barrel ostomy. PSYCH: Able to answer questions by attempting to speak to normal. Not able phonate MUSCULOSKELETAL: Right BKA. Left foot drop. Left hand contracture. Right hand also with contracture but able to have some movements NEUROLOGICAL: Cranial nerves grossly intact; no facial asymmetry, slight movement in the right arm. L INVESTIGATIONS, reviewed in the clinical context: September 24: White count 6.6 hemoglobin 7 platelets 158 potassium 4 BUN 58 creatinine 1.52 phosphorus 6.2 : White count 9.0 hemoglobin 7.7 platelets 155 potassium 4.5 creatinine 1.69 September 22: White count 7.4 hemoglobin 7.3 platelets 114 potassium 5.4 BUN 110 creatinine 1.79 September 18: White count 14.9 hemoglobin 7.6 ABG show pH of 7.2PCO2 of 68P O2 was 77 potassium was 6.1 repeat 5.2 creatinine 0.82 September 17: White count 20 hemoglobin 8.5 platelets 199 potassium 4.2 BUN 25 creatinine 0.4. ABG: pH 7.17 pCO2 79 PO277. September 02: White count 3.6 hemoglobin 9.7 platelets 130 potassium 3.9 BUN 23 creatinine 0.36 ionized calcium 4.3 TSH 2.7 Sputum culture: Pseudomonas aeruginosa: Sensitive to Zosyn, tobramycin, ceftazidime Sputum culture: Pseudomonas aeruginosa August 30: White count 3.5 hemoglobin 10.0 platelets 133 potassium 3.5 creatinine 0.36 August 29, 2024: White count 6.2 hemoglobin 12.3 platelets 216 sodium 128 potassium 3.1 BUN 50 creatinine 0.46 lactic acid 2.1 calcium 10.8 phosphorus 3.0 troponin I 0.016 UA: Negative for nitrite Influenza type A, type B, RSV, SARS-CoV-2: Not detected EKG tracing personally reviewed by me-normal sinus rhythm Chest x-ray film personally reviewed by me-right basilar infiltrate Previous labs: Sputum culture July 20, 2024: Pseudomonas aeruginosa Assessment plan: - basal pneumonia. Previous admission sputum was positive for Pseudomonas aeruginosa-:: Slow to respond Has received different antibiotics. Currently: Aniedulefungin IV, IV ceftolozane tazobactam, IV vancomycin Being followed by pulmonary, and ID - Fluid overload Had received Lasix drip - Acute kidney injury from ATN from septic shock. Also consider vancomycin toxicity. Oliguric. Volume overload. Dialysis catheter placed by Dr. Cadena-September 21. First dialysis was on Sonia 8. - Septic shock: Slow to respond Been on Levophed - Acute on chronic hypoxic and hypercapnic respiratory failure, vent dependent at night at home: Slow to respond On ventilator support. Propofol - Tracheostomy with trach collar -Acute normocytic anemia of chronic disease and hospital-acquired anemia from blood draws and possible hemolysis from infection 2 units of blood given September 20. - Thrombocytopenia likely from sepsis Follow - Right below-knee amputation - Chronic quadriparesis. Including left foot drop. Left arm contracture. Some right hand contracture. Some movement in the right arm - Crohn's disease with double barrel ostomy bag in place since 09/2021 - TPN and lipids Lipids have been held during propofol - Full code - DPOA, son BECKY Remains guarded. Antibiotics dialysis. Pressure support. Past Medical History Past Medical History: CVA/TIA, Deep Vein Thrombosis (DVT), Pneumonia Additional Past Medical History / Comment(s): Hx CVA in 2012, DVT R arm, Crohns. colostomy Bag placed in 09/2021. History of Any Multi-Drug Resistant Organisms: MRSA, Other MDRO Date of last positivie culture/infection: 07/20/24-Other MDRO; 12/14/23-MRSA MDRO Source:: Other MDRO - sputum, BAL; MRSA- nasal Past Surgical History: Bowel Resection, Cholecystectomy, Orthopedic Surgery Additional Past Surgical History / Comment(s): R jena FINK with chronic home vent Past Anesthesia/Blood Transfusion Reactions: No Reported Reaction Additional Past Anesthesia/Blood Transfusion Reaction / Comment(s): recalled from previous admission Smoking Status: Never smoker
--- NOTE | 2024-09-24 22:43 | P.PN ---
Subjective Progress Note Date: 09/24/24 Principal diagnosis: Reason for follow-up is sepsis and pneumonia/candidemia Patient is a 49-year-old male with a past medical history significant for CVA TIA DVT pneumonia history of complicated Crohn's disease in this patient who did have multiple abdominal surgeries patient also have a tracheostomy has been brought to the hospital with Generalized weakness did have a fever concerning for pneumonia on today's evaluation that is 09/24/2024,the patient remains to be afebrile, patient is intubated on the vent FiO2 is currently at 50% no significant purulent secretion through the ET patient has been on Levophed at 0.03 mcg/kg and the patient has been dialyzed because of volume overload so far tolerated. Patient white count 6.67, creatinine 1.52 blood culture repeat from 09/22/2024 so far negative Objective - Vital Signs Vital signs: Vital Signs Temp 96.2 F L 09/24/24 12:00 Pulse 53 L 09/24/24 15:00 Resp 36 H 09/24/24 15:00 BP 107/62 09/24/24 15:00 Pulse Ox 100 09/24/24 15:00 FiO2 40 09/24/24 12:07 Intake & Output 09/23/24 09/24/24 09/24/24 18:59 06:59 18:59 Intake Total 1661.561 986.557 815.674 Output Total 3570 1066 20 Balance -1908.439 -79.443 795.674 Weight 111.6 kg Intake: IV 555 637 294 0.9 120 130 60 Pressure Bag, CVP and ART 72 78 36 TPN 363 429 198 Intake, IV Titration 606.561 349.557 521.674 Amount Anidulafungin 100 mg In 100 100 Sodium Chloride 0.9% 100 ml @ 84 mls/hr IVPB DAILY ANNIE Rx#:[id number] Norepinephrine 8 mg In 106.561 130.044 Sodium Chloride 0.9% 250 ml @ 0.03 MCG/KG/MIN 6. 513 mls/hr IV .Q24H ANNIE Rx#:[id number] propofoL 1,000 mg In 400 349.557 291.63 Empty Bag 1 bag @ 50 MCG/ KG/MIN 32.34 mls/hr IV . Q3H6M ANNIE Rx#:[id number] Hemodialysis 500 Output: Urine 70 66 20 Stool 1000 Hemodialysis 2000 Hemodialysis Net Amount 1500 Other: Voiding Method Indwelling Catheter Indwelling Catheter Indwelling Catheter ABP, PAP, CO, CI - Last Documented Arterial Blood Pressure 50/42 - Exam GENERAL DESCRIPTION: Middle-age male intubated on the vent RESPIRATORY SYSTEM: Unlabored breathing , decreased breath sounds at bases HEART: S1 S2 regular rate and rhythm , ABDOMEN: Soft , no tenderness EXTREMITIES: Swelling to the leg - Labs CBC & Chem 7: 09/24/24 04:00 09/24/24 04:00 Labs: Abnormal Lab Results - Last 24 Hours (Table) 09/23/24 09/23/24 09/23/24 Range/Units 18:04 23:07 23:26 RBC (4.40-5.60) 10*6/uL Hgb (13.0-17.0) g/dL Hct (39.6-50.0) % MCH (27.0-32.0) pg MCHC (32.0-37.0) g/dL Immature Gran # (0.00-0.04) 10*3/uL Lymphocytes # (0.90-5.00) 10*3/uL Immature Plt Fraction (1.1-6.1) % ABG Total CO2 (19-24) mmol/L ABG O2 Saturation (94-97) % Hemoglobin (13.0-17.5) gm/dL Sodium (137-145) mmol/L Chloride (98-107) mmol/L BUN (9-20) mg/dL Creatinine (0.66-1.25) mg/dL Glucose (74-99) mg/dL POC Glucose (mg/dL) 144 H 123 H 121 H (70-110) mg/dL Calcium (8.4-10.2) mg/dL Phosphorus (2.5-4.5) mg/dL 09/24/24 09/24/24 09/24/24 Range/Units 04:00 04:00 05:30 RBC 2.70 L (4.40-5.60) 10*6/uL Hgb 7.0 L (13.0-17.0) g/dL Hct 22.4 L (39.6-50.0) % MCH 25.9 L (27.0-32.0) pg MCHC 31.3 L (32.0-37.0) g/dL Immature Gran # 0.06 H (0.00-0.04) 10*3/uL Lymphocytes # 0.66 L (0.90-5.00) 10*3/uL Immature Plt Fraction 8.6 H (1.1-6.1) % ABG Total CO2 26 H (19-24) mmol/L ABG O2 Saturation 98.2 H (94-97) % Hemoglobin 7.8 L (13.0-17.5) gm/dL Sodium 130 L (137-145) mmol/L Chloride 95 L (98-107) mmol/L BUN 58 H (9-20) mg/dL Creatinine 1.52 H (0.66-1.25) mg/dL Glucose 111 H (74-99) mg/dL POC Glucose (mg/dL) (70-110) mg/dL Calcium 8.3 L (8.4-10.2) mg/dL Phosphorus 6.2 H (2.5-4.5) mg/dL 09/24/24 Range/Units 05:37 RBC (4.40-5.60) 10*6/uL Hgb (13.0-17.0) g/dL Hct (39.6-50.0) % MCH (27.0-32.0) pg MCHC (32.0-37.0) g/dL Immature Gran # (0.00-0.04) 10*3/uL Lymphocytes # (0.90-5.00) 10*3/uL Immature Plt Fraction (1.1-6.1) % ABG Total CO2 (19-24) mmol/L ABG O2 Saturation (94-97) % Hemoglobin (13.0-17.5) gm/dL Sodium (137-145) mmol/L Chloride (98-107) mmol/L BUN (9-20) mg/dL Creatinine (0.66-1.25) mg/dL Glucose (74-99) mg/dL POC Glucose (mg/dL) 114 H (70-110) mg/dL Calcium (8.4-10.2) mg/dL Phosphorus (2.5-4.5) mg/dL Microbiology - Last 24 Hours (Table) 09/22/24 18:46 Blood Culture - Preliminary Blood Assessment and Plan (1) Pneumonia Current Visit: Yes Status: Acute Code(s): J18.9 - PNEUMONIA, UNSPECIFIED ORGANISM SNOMED Code(s): 817240833 (2) Sepsis Current Visit: Yes Status: Acute Code(s): A41.9 - SEPSIS, UNSPECIFIED ORGANISM SNOMED Code(s): 21831624 (3) Candidemia Current Visit: Yes Status: Acute Code(s): B37.7 - CANDIDAL SEPSIS SNOMED Code(s): 084799618 Plan: 1patient is a hospital with sepsis in this patient who did have fever tachycardia elevated lactic acid upon meeting criteria for SIRS/sepsis source likely pneumonia 2-patient is status post bronchoscopy lavage results currently growing Pseudomonas that is resistant to Avycaz and corynebacterium, sensitivity on corynebacterium is pending 3-patient with Pseudomonas pneumonia for the patient has completed his antibiotic therapy 4-patient did have candidemia source is likely left chest wall PICC line which has been discontinued has been sent for the culture central line placed by stereoptic projection topographer, blood culture repeat on 09/18/2024 positive blood culture repeat 09/22/2024 currently pending. 5patient remains to be critically ill though did have resolution of his fever we will continue with Eraxis and monitor clinical course closely, care was discussed in detail with the mother at the bedside Dictation was produced using [employer] dictation software. please excuse any grammatical, word or spelling errors. Time with Patient: Less than 30
[2024-09-25 01:25] LABS: Glucose,Whole Blood 122 mg/dL (70-110)
[2024-09-25 04:32] LABS: Basophils # (A) 0.00 10*3/uL (0.00-0.10); Basophils % (A) 0.0 %; Eosinophils # (A) 0.05 10*3/uL (0.04-0.35); Eosinophils % (A) 0.7 %; HCT 23.9 % (39.6-50.0); HGB 7.6 g/dL (13.0-17.0); Immature Platelet Fraction 9.0 % (1.1-6.1); Lymphocytes # (A) 0.73 10*3/uL (0.90-5.00); Lymphocytes % (A) 9.8 %; MCH 26.5 pg (27.0-32.0); MCHC 31.8 g/dL (32.0-37.0); MCV 83.3 fL (80.0-97.0); Monocytes # (A) 0.36 10*3/uL (0.20-1.00); Monocytes % (A) 4.8 %; Neutrophils # (A) 6.25 10*3/uL (1.80-7.70); Neutrophils % (A) 83.8 %; Platelet Count 194 10*3/uL (140-440); RBC 2.87 10*6/uL (4.40-5.60); RDW 21.2 % (11.5-14.5); WBC 7.46 10*3/uL (4.50-10.00)
[2024-09-25 04:41] LABS: ALT 93 U/L (4-49); AST 75 U/L (17-59); African American GFR (CKD) >90 (>60 ml/min/1.73 sqM); Albumin 2.5 g/dL (3.5-5.0); Alkaline Phosphatase 135 U/L (38-126); Anion Gap 11 mmol/L; Blood Urea Nitrogen 35 mg/dL (9-20); Calcium 7.9 mg/dL (8.4-10.2); Carbon Dioxide 24 mmol/L (22-30); Chloride 94 mmol/L (98-107); Glucose 103 mg/dL (74-99); Magnesium 1.7 mg/dL (1.6-2.3); Non-African American GFR(CKD) 83 (>60 ml/min/1.73 sqM); Potassium 3.5 mmol/L (3.5-5.1); Sodium 129 mmol/L (137-145); Total Protein 6.6 g/dL (6.3-8.2)
[2024-09-25 05:32] LABS: ABG HCO3 27 mmol/L (21-25); ABG PCO2 36 mmHg (35-45); ABG PH 7.49 (7.35-7.45); ABG PO2 82 mmHg (83-108); ABG TCO2 28 mmol/L (19-24)
[2024-09-25 05:35] LABS: Allen Test Performed? No
[2024-09-25 06:22] LABS: Glucose,Whole Blood 115 mg/dL (70-110)
[2024-09-25] MEDS: MAGNESIUM SULFATE-D5W PMX 1 GM in DEXTROSE/WATER 1 100ML.BAG IVPB ONE (07:11)
[2024-09-25] MEDS: POTASSIUM CHLORIDE 20 MEQ in WATER FOR INJECTION 1 100ML.BAG IVPB SCH (07:12)
--- NOTE | 2024-09-25 07:49 | XR ---
EXAMINATION TYPE: XR chest 1V portable DATE OF EXAM: 09/25/2024 6:00 AM COMPARISON: Multiple radiographs, with the most recent on 09/24/2024 TECHNIQUE: XR chest 1V portable Portable AP radiograph of the chest. CLINICAL INDICATION:Male, 49 years old with history of mechanically ventilated; FINDINGS: Patient is rotated which limits evaluation. Lungs/Pleura: Small right pleural effusion. Similar patchy airspace opacities within the right lung b ase with diffuse interstitial prominence. No pneumothorax. Heart/mediastinum: Cardiomediastinal silhouette is enlarged. Musculoskeletal: No acute osseous pathology. Other findings: Surgical clips within the right supraclavicular region. Lines/Tubes: Tracheostomy cannula tip projecting over the trachea. Right subclavian approach central venous catheter with distal tip at the superior cavoatrial junction . IMPRESSION: 1. Overall similar examination with right basilar airspace opacities and small right pleural effusio n. Diffuse interstitial prominence. Findings may represent pulmonary edema and/or pneumonia. 2. Stable support lines and tubes. [facility], , 09/25/2024 7:46 AM
--- NOTE | 2024-09-25 11:27 | P.PN ---
Subjective Progress Note Date: 09/25/24 Principal diagnosis: Pneumonia. This is a 49-year-old white male familiar to my service, history of paraplegia, home vent dependent, history of tracheostomy, patient had multiple admissions to the ICU for recurrent episodes of pneumonia and respiratory failure requiring ventilatory support. On his last admission patient was eventually discharged home on a home ventilator, and this was back on 08/04/2024. Patient was discharged home with a PICC line, patient was in the ER yesterday on 08/28 for abnormal labs mostly low potassium and low sodium discharged home however he cam e back today complaining of shortness of breath, has been ventilator dependent all along. Chest x-ray showed basically bibasilar opacities/atelectasis, doubt pneumonia, the findings in the left lower lobe are chronic. Patient did have previous history of pneumonia involving the left lower lobe and he had multiple bronchoscopies in the past. Bronchial cultures and sputum cultures have been positive in the past for mostly Pseudomonas aeruginosa. Patient was seen in the ER today, and he is already on cefepime for empiric coverage for potential left lower lobe pneumonia, patient had abnormal electrolytes with relatively low sodium low potassium, no leukocytosis, normal renal profile, blood pressure was soft, and he was given fluid boluses. Lactic acid was 2.1, D-dimer is normal, patient was admitted, and this consult was initiated. 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 Patient was seen today on 08/30/2024, patient continues to have intermittent episodes of fever with Tmax of 102, patient required norepinephrine and he remains on norepinephrine at 0.04 mcg/kg/min remains on LR at 130 cc/h remains on his home ventilator at tidal volume of 450 rate of 20 FiO2 45% and PEEP of 5. Seems comfortable, not in distress, his WBC is 3.5 hemoglobin 10.0 electrolytes are normal renal profile is normal potassium is borderline low. Patient remains on cefepime, vancomycin was added because of his previous history of MRSA, and is on cefepime for previous history of pseudomonal infection and now that the patient may be septic it is more of a reason to broaden the spectrum of antibiotics coverage with cefepime and vancomycin. Sputum cultures and blood cultures are pending. Patient does have history of pseudomonal and history of MRSA infections, and I discontinued his Zithromax today replace Zithromax with vancomycin. Viral screen is negative Legionella antigen is negative. Chest x- ray is relatively unchanged continues to show bibasilar opacities atelectasis/pneumonia. Progress note dated August 31, 2024. The patient is seen today in room 252. The patient was admitted a couple days ago, to the intensive care unit. The patient is currently on mechanical ventilator, actually his home ventilator. He is on volume assist-control, rate 20, tidal volume 450, FiO2 45% PEEP of 5. The patient is getting lactated Ringer's at 130 cc an hour, TPN at 91 cc an hour, norepinephrine at 8 mcg/min. Doppler of the left upper extremity was negative. He continues on Zerbaxa, and vancomycin. We will check a procalcitonin level. Cultures thus far are negative. He does have a previous history of methicillin-resistant Staph aureus infection, and pseudomonal infections. White count was 2.21, hemoglobin 9.3, hematocrit 32, platelet count 1 61,000. D-dimer was 5.78. Sodium 132, potassium 4.3, chlorides 106, CO2 21, BUN 18, creatinine 0.28. Glucose was 141. Calcium 7.8. C. difficile study was negative. Urine Legionella antigen was negative. Microbiologic studies are currently negative. Chest x-ray shows bibasilar airspace opacities, possibly consistent with pneumonia. 09/01/24 - The patient is seen today in room 252. Admitted to the hospital and the intensive care unit on 08/29/2024. The patient is currently on mechanical ventilator, his one from home. He is on volume assist control, rate of 20, tidal volume of 450, FiO2 45% and PEEP of 5. He currently has LR running at 50 cc/h, TPN at 91 cc/h, Zerbaxa and tobramycin. Chest Xray done this morning showed stable airspace opacities. Cultures are positive for pseudomonas aeruginosa, awaiting sensitivities. WBCs 2.69, Hgb 8.9, Hct 31.5, PLT 153, Na 135, K 3.4, Cl 109, HCO3 19, BUN 22, Cr 0.34, Phos 2.4. 09/02/24 - He is seen today in room 252. Admitted to the hospital and ICU on 08/29/24. He continues on mechanical ventilator, his one from home. He remaines on volume assist control, rate of 20, tidal volume of 450, FiO2 45% and PEEP of 5. He continues to have LR running at 50 cc/h, TPN at 91 cc/h, norepinephrine at 0.13 mcg/kg/min, Zebraxa and Tobramycin. Chest XRay this morning showed stable airspace opacities. Continue to await sensitivity of pseudomonas sputum culture. Lab work shows WBCs 3.64, Hgb 9.7, Hct 33.5, PLT 130, Na 133, K 3.9, bicarb 21, BUN 23, Cr 0.36, Ca 7.8, Mg 2.4, Albumin 2.3. 09/03/24 - He is seen in room 252. Admitted to the hospital and ICU on 08/29/24. He continues on mechanical ventilator, his one from home. He remaines on volume assist control, rate of 20, tidal volume of 450, FiO2 45% and PEEP of 5. He continues to have LR running at 50 cc/h, TPN at 91 cc/h, norepinephrine at 0.24 mcg/kg/min, Avycaz and Tobramycin. Zebraxa was discontinued as there was no reported sensitivity to it. Lab work shows WBCs 9.40, Hgb 8.8, Hct 30.6, PLT 100, Na 130, K 3.6, bicarb 23, BUN 25, Cr 0.51, Ca 7.8, Ionized Ca 4.6, Phos 3.3, Mg 2.1, TSH 2.710 and random cortisol 13.1. 09/04/24 - He is seen in room 252. Admitted to the hospital and ICU on 08/29/24. He continues on mechanical ventilator, his one from home. He remaines on volume assist control, rate of 20, tidal volume of 450, FiO2 45% and PEEP of 5. He continues to have LR running at 50 cc/h, TPN at 91 cc/h, norepinephrine at 0.24 mcg/kg/min, Avycaz and Tobramycin. Lab work shows sodium 133, potassium 3.5, bicarb 24, BUN 27, creatinine 0.47, calcium 7.9, ionized calcium 4.6, magnesium 1.9, phosphorus 3.0, total bilirubin 1.7, AST 57, ALT 45, alkaline phosphatase 99. Progress note dated September 05, 2024. 49-year-old male well-known to our service. He is seen today in room 252. He continues on volume assist-control, rate 20, tidal 450, FiO2 45%, PEEP of 5. The patient has refused blood gases. Currently, he is getting TPN at 65 cc an hour, norepinephrine at 1 mcg/min, LR at 50 cc/h. Clinically, the patient is doing well. His chest x-ray remains about the same. Yesterday he was on a higher dose of norepinephrine, and also was on vasopressin. Both have been weaned off. Current labs include a sodium 136, potassium 4.1, chlorides 101, CO2 28, BUN 30, creatinine 0.37. Glucose 153. Albumin is 2.2. Previous sputum, from August 29 with positive for Pseudomonas aeruginosa. Chest x-ray is largely unchanged. Progress note dated September 06, 2024. 49-year-old male again seen today in the intensive care unit, room 252. He remains on mechanical ventilator, actually his home ventilator, with settings of volume assist-control, rate 20, tidal volume 450, FiO2 45%, PEEP of 5. No blood gases today. The patient has been refusing. He is getting lactated Ringer's at 50 cc an hour, TPN at 65 cc an hour. He continues on the same antibiotics. White count 5.21, hemoglobin 7.9, hematocrit 27.5, and platelet count 64,000. Sodium 141, potassium 3.5, chlorides 102, CO2 32, BUN 25, and creatinine 0.35. Glucose is 152. Calcium is 8. Albumin is 2.1. Chest x-ray is largely unchanged. Patient was seen today on 09/16/2024, patient is basically about the same. Hardly any improvement noted in the last few weeks since admission, patient remains intubated, mechanically ventilated, same ventilator settings, assist-control rate of 20 tidal volume 450 FiO2 60% and PEEP of 8 ABG was not done today, no easy access, attempted to place arterial lines in this patient, but could not pass a wire although the arteries including femoral artery and left brachial artery were easily cannulated. No further attempts made for arterial access. Patient remains on norepinephrine at 0.13 mcg/kg/min still on TPN at 75 cc/h still on Zerbaxa and vancomycin chest x-ray showed worsening today of bilateral infiltrates possibly some component of fluid overload and I recommended Lasix 20 mg IV push twice daily. Patient seems to be quite swollen and edematous. WBC count is 5.4 hemoglobin 7.6 electrolytes showed sodium of 146 potassium 4.1 BUN 20 creatinine 0.47 Patient was seen today on 09/17/2024, patient seems to be deteriorating steadily over the last 24 hours, he is developing profound hypotension requiring pressors in the form of Levophed at 0.4 mcg/kg/min he is also on vasopressin at 0.04 units/min he is on TPN at 75 cc/h hemoglobin is noted to be low at 6.9, patient has positive yeast in the blood/fungemia he is on fluconazole, this is being addressed by infectious disease on the case. Earlier ABG showed a pO2 of 77 pCO2 88 pH of 7.13, Vent settings were adjusted with increasing the rate to 36. He is now on tidal volume of 350 FiO2 100% PEEP is 10 and rate is 36. Another ABG is pending. But clearly patient is taking a downhill clinical course. Patient is quite septic, I will likely change his central line, and place a new central line in this patient today and remove the old central line/PICC line. Patient will receive a unit of packed RBCs for hemoglobin of 6.9. Considering the change in his overall clinical status, discussed his condition with son, would like to keep his dad as a full code, he is very well aware of the poor prognostic picture and how ill his dad is. Would like to keep him a full code. WBC count today is 20.03 hemoglobin 8.5, basic metabolic profile is normal BUN is 25 creatinine 0.4 total protein is 6.9 albumin is 1.9. Patient was seen today on 09/18/24, remains in the ICU, intubated and mechanically ventilated. Patient is still requiring assist-control rate of maximal ventilatory support with rate of 36 tidal volume increased today up to 400 FiO2 decreased from 100% to 70% PEEP remains at 12. Earlier ABG before changes were made at the FiO2 had been on tidal volume showed a pO2 of 77 pCO2 68 pH of 7.20. Patient is still requiring norepinephrine and I have been titrating the norepinephrine earlier this morning he is down to 0.18 from 0.46 yesterday micrograms per kilo per minute vasopressin is still at 0.04 units/min patient is on propofol at 50 mcg/kg/min Lasix drip at 20 mg/h and TPN at 75 cc/h. I am also treating the patient with vancomycin, Zerbaxa, and Eraxis was added to replace fluconazole yesterday by infectious disease specially with his positive blood cultures for Bella. Urine output is improving with the Lasix drip, he did not improve much with 1 dose of Lasix 60 mg IV push. Remains on Solu-Cortef at 100 mg IV push every 8 hours patient is in positive fluid balance about 6 L hence I decided to go with Lasix drip today. Labs today showed slight improvement in his WBC count down to 14.9 hemoglobin is 7.6, electrolytes are abnormal with a potassium of 6.1 BUN is 45 creatinine 0.82 chest x-ray continues show bilateral interstitial edema/infiltrates, could be cardiogenic or noncardiogenic pulmonary edema I believe it is mostly cardiogenic/related to fluid overload as he received significant fluids yesterday for low blood pressure. And he was not making much urine in the last 24 hours. Hence Lasix drip was started today. Patient was seen today on 09/19/2024, remains in the ICU, remains intubated and mechanically ventilated. Patient is on assist-control rate of 36 tidal volume 400 FiO2 65% and PEEP of 12. His ABG showed a pO2 of 142 pCO2 52 pH of 7.28, hence cut down his FiO2 down to 50%. The PEEP at 12. Patient remains hemodyn amically unstable, remains on norepinephrine at 0.08 mcg/kg/min, his vasopressin has been discontinued. TPN is at 75 cc/h. Remains on Lasix drip/infusion at 20 mg/h. He is on propofol at 50 mcg/kg/min remains on Solu-Cortef 50 mg every 8, Eraxis, Zerbaxa, vancomycin. Urine output is marginal at about 10 to 20 cc/h in spite of Lasix drip. Lovenox will be resumed today at 80 mg subcu twice daily. Patient is sedated, his overall clinical status is showing slight improvement compared to the clinical status couple of days ago. Chest x-ray continues to show evidence of interstitial edema although the possibility of ARDS is not entirely ruled out considering his overall septic picture. CBC is about the same with WBC of 7.7 hemoglobin 7.1. Platelets are 128,000. Basic metabolic profile is normal potassium is down to 5.2 BUN is 67 creatinine is slightly higher today 1.13. Blood sugar is 358. Patient was seen today on 09/20/2024, remains in the ICU intubated mechanically ventilated. On assist-control rate of 36 tidal volume 400 FiO2 50% PEEP of 12, no ABG done today, however his O2 saturation is in the high 90s about 98%. Patient had a low hemoglobin today and he will need a unit of blood/packed RBCs for low hemoglobin. No active bleeding noted, Hemoccult stools will be done t lizette. Patient remains on Eraxis and Zerbaxa, his vancomycin was discontinued remains on lower dose of Solu-Cortef 50 mg IV push every 12 hours. Continues to have poor urine output and his renal functioning is getting a bit worse. Nephrology was consulted, patient received initially significant amount of fluids for his presentation of sepsis, and he remained oliguric in spite of fluid boluses. Then he was placed on Lasix drip which initially was working fine, now that urine output is rather marginal and spite of Lasix drip at 20 mg an hour. I am recommending a trial of albumin followed by 80 mg of Lasix IV push. And hopefully his urine output will hand picker with the albumin and with the blood transfusion which is scheduled to be done soon. Vancomycin has been discontinued. Chest x-ray continues to show evidence of interstitial edema. Labs are reviewed his potassium is 5 bicarb is 20 BUN is 83 creatinine 1.49 platelets are 105 hemoglobin 6.3. Progress note dated September 21, 2024. The patient remains on volume assist-control, rate 36, tidal volume 400, FiO2 50%, PEEP of 12. Blood gases were not obtained. He continues on TPN at 75 cc an hour, propofol at 50 mcg/kg/min, saline at 10 cc an hour, and norepinephrine is currently on hold. Antibiotic douglas, he continues on vancomycin, and Eraxis. White count is 6.9, hemoglobin 7.6, hematocrit 24.3, and platelet count 115,000. Sodium 137, potassium 5.1, chlorides 103, CO2 18, anion gap 16, BUN 99, creatinine 1.58. Glucose is 228. Calcium 8.1, phosphorus 5.4, magnesium 2.5. Culture data shows evidence of Pseudomonas aeruginosa back on August 29, Pseudomonas in the bronchial washings on September 07, and blood cultures positive, September 18, currently pending. Chest x-ray is largely unchanged, shows patchy diffuse airspace opacities, with a small right-sided pleural effusion. Progress note dated September 22, 2024. The patient is seen today in room 252. He remains on volume assist-control. Settings include volume assist-control 36, tidal volume 400, FiO2 50%, PEEP of 12. He is getting propofol at 50 mcg/kg/min, norepinephrine at 3 mcg/min, and TPN at 75 cc an hour. He is having hemodialysis today. The goal is removal of 1 to 2 L of fluid. He continues on Eraxis. We were able to place a right radial arterial line. We will repeat a blood gas, after hemodialysis. Current laboratory data includes a white count 7.4, hemoglobin 7.3, hematocrit 23.4, and a platelet count of 114,000. Sodium 134, potassium 5.4, chlorides 104, CO2 15, anion gap 15, BUN 110, creatinine 1.79. Glucose is 153. Calcium is 8.3. Previous blood in sputum sampling, showed evidence of Pseudomonas aeruginosa. The patient also has previous blood culture showing evidence of Bella species. Chest x-ray today is largely unchanged. Progress note dated September 23, 2024. 49-year-old male seen today in room 252. He remains on mechanical ventilation. He is on volume assist-control, rate 36, tidal volume 400, FiO2 40%, PEEP of 12. Blood gases show pO2 100, pCO2 44, pH is 7.30. Patient continues on norepinephrine at 5.6 mcg/min, propofol at 50 mcg/kg/min, TPN at 33 cc an hour. He is getting saline at 10 cc an hour. He had hemodialysis yesterday, September 22, and 1 L of fluid was removed. He continues on Eraxis, as per infectious diseases. White count is 9.0, hemoglobin 7.7, hematocrit 24, and platelet count is 155,000. Sodium 132, potassium 4.5, chlorides 96, CO2 20, anion gap 16, BUN 80, and creatinine 1.69. Glucose is 145. Calcium 8.5. Most recent blood cultures, on September 18, were positive for Bella. Today's chest x-ray is largely unchanged. Progress note dated September 24, 2024. 49-year-old male seen today in room 252. The patient continues on life support, IV volume assist-control, rate 36, tidal volume 400, FiO2 40%, PEEP of 12. Blood gases show pO2 100, pCO2 42, pH is 7.39. The patient is getting propofol at 15 mcg/kg/min, norepinephrine at 4 mcg/min, TPN at 33 cc an hour, and saline at 10 cc an hour. The patient's hemoglobin is 7. He continues on Eraxis. The patient static lung compliance is 23.5 mL/cm water. He has very stiff lungs. White count is 6.7, hemoglobin 7, hematocrit 22.4, platelet count 158,000. Sodium 130, potassium 4, chlorides 95, CO2 22, anion gap 13, BUN 58, creatinine 1.52. Glucose is 114. Calcium 8.3. Magnesium 1.7. No recent new culture data. Chest x-ray is about the same as it was a day before. It shows right basilar airspace opacities, with a small right-sided pleural effusion. There was some interstitial prominence. Progress note dated September 25, 2024. 49-year-old male seen today in room 252. He remains on volume assist-control, rate 36, tidal volume 400, FiO2 30%, and PEEP of 12, to be dropped to a PEEP of 8. Blood gases show pO2 of 82, pCO2 36, pH of 7.49. The patient is on TPN at 33 cc an hour, propofol at 30 mcg/kg/min, and norepinephrine at about 3 mcg/min. He is having hemodialysis today. Goal is to remove 2 to 3 L if tolerated. The patient continues on Eraxis. White count 7.5, hemoglobin 7.6, hematocrit 23.9, and platelet count of 194,000. Sodium 129, potassium 3.5, chloride 94, CO2 24, anion gap normal, BUN 35, creatinine 1.06. Glucose is 115. Albumin is 2.5. Recent blood cultures are positive for Bella. Chest x-ray is largely u nchanged. There is right basilar airspace disease, with a small right-sided pleural effusion. Objective - Vital Signs Vital signs: Vital Signs Temp 97.9 F 09/25/24 04:00 Pulse 64 09/25/24 11:17 Resp 37 H 09/25/24 11:00 BP 109/51 09/25/24 11:00 Pulse Ox 97 09/25/24 11:00 FiO2 30 09/25/24 11:18 Intake & Output 09/24/24 09/25/24 09/25/24 18:59 06:59 18:59 Intake Total 0470.615 2720.375 402.361 Output Total 955 5290 778 Balance 211.517 -3199.625 -375.639 Weight 111.1 kg Intake: IV 539 225 212 0.9 KVO 110 120 50 Pressure Bag, CVP and ART 66 72 30 TPN 363 33 132 Intake, IV Titration 666.304 7253.375 157.361 Amount Anidulafungin 100 mg In 100 Sodium Chloride 0.9% 100 ml @ 84 mls/hr IVPB DAILY ANNIE Rx#:[id number] Mvi, Adult No.4 with Vit 569.8 K 10 ml Trace (Conc-1Ml/ Dose) 1 ml Sodium Acetate 80 meq Sodium Chloride 4Meq/ml Vial 16 meq Magnesium Sulfate gm 0.25 gm In Amino Acids 5 %/ Dextrose 20 % 1,000 ml @ 33 mls/hr IV .Q24H ANNIE Rx #:[id number] Norepinephrine 8 mg In 153.420 38.789 74.248 Sodium Chloride 0.9% 250 ml @ 0.03 MCG/KG/MIN 6. 513 mls/hr IV .Q24H ANNIE Rx#:[id number] propofoL 1,000 mg In 374.097 393.786 83.113 Empty Bag 1 bag @ 50 MCG/ KG/MIN 32.34 mls/hr IV . Q3H6M ANNIE Rx#:[id number] TPN/PPN 363 33 TPN 363 33 Hemodialysis 500 Output: Drainage 900 750 750 Medial Abdomen 900 750 750 Urine 55 40 28 Hemodialysis 2500 Hemodialysis Net Amount 1999 Other: Voiding Method Indwelling Catheter Indwelling Catheter ABP, PAP, CO, CI - Last Documented Arterial Blood Pressure 50/42 - Exam No acute distress, currently connected to the ventilator. He has a tracheostomy tube in place. HEENT examination is grossly unremarkable. Mucous membranes are moist. No oral lesions. Neck supple. Full range of motion. No adenopathy thyromegaly or neck vein distention. Cardiovascular examination reveals regular rhythm rate. S1-S2 normal. No S3 or S4. No discernible murmur noted. Lungs reveal scattered rhonchi and crackles. No wheezes. Breath sounds equal bilaterally. Abdomen reveals an enterocutaneous fistula, normal bowel sounds. No tenderness. No masses. Extremities are intact. No cyanosis clubbing or edema. Right below the knee amputation. Has a right radial arterial line. Skin is without rash or lesion. Neurologic examination is brief but nonfocal. He does have significant muscle atrophy, and contractures. He has a right below the knee amputation. - Labs CBC & Chem 7: 09/25/24 06:00 09/25/24 04:10 Labs: Abnormal Lab Results - Last 24 Hours (Table) 09/24/24 09/25/24 09/25/24 Range/Units 17:15 01:24 04:10 RBC (4.40-5.60) 10*6/uL Hgb (13.0-17.0) g/dL Hct (39.6-50.0) % MCH (27.0-32.0) pg MCHC (32.0-37.0) g/dL Immature Gran # (0.00-0.04) 10*3/uL Lymphocytes # (0.90-5.00) 10*3/uL Immature Plt Fraction (1.1-6.1) % ABG pH (7.35-7.45) ABG pO2 (83-108) mmHg ABG HCO3 (21-25) mmol/L ABG Total CO2 (19-24) mmol/L ABG O2 Saturation (94-97) % Hemoglobin (13.0-17.5) gm/dL Sodium 129 L (137-145) mmol/L Chloride 94 L (98-107) mmol/L BUN 35 H (9-20) mg/dL Glucose 103 H (74-99) mg/dL POC Glucose (mg/dL) 119 H 122 H (70-110) mg/dL Calcium 7.9 L (8.4-10.2) mg/dL Phosphorus 5.0 H (2.5-4.5) mg/dL Total Bilirubin 2.5 H (0.2-1.3) mg/dL AST 75 H (17-59) U/L ALT 93 H (4-49) U/L Alkaline Phosphatase 135 H (38-126) U/L Albumin 2.5 L (3.5-5.0) g/dL 09/25/24 09/25/24 09/25/24 Range/Units 05:18 06:00 06:21 RBC 2.87 L (4.40-5.60) 10*6/uL Hgb 7.6 L (13.0-17.0) g/dL Hct 23.9 L (39.6-50.0) % MCH 26.5 L (27.0-32.0) pg MCHC 31.8 L (32.0-37.0) g/dL Immature Gran # 0.07 H (0.00-0.04) 10*3/uL Lymphocytes # 0.73 L (0.90-5.00) 10*3/uL Immature Plt Fraction 9.0 H (1.1-6.1) % ABG pH 7.49 H (7.35-7.45) ABG pO2 82 L (83-108) mmHg ABG HCO3 27 H (21-25) mmol/L ABG Total CO2 28 H (19-24) mmol/L ABG O2 Saturation 97.3 H (94-97) % Hemoglobin 8.0 L (13.0-17.5) gm/dL Sodium (137-145) mmol/L Chloride (98-107) mmol/L BUN (9-20) mg/dL Glucose (74-99) mg/dL POC Glucose (mg/dL) 115 H (70-110) mg/dL Calcium (8.4-10.2) mg/dL Phosphorus (2.5-4.5) mg/dL Total Bilirubin (0.2-1.3) mg/dL AST (17-59) U/L ALT (4-49) U/L Alkaline Phosphatase (38-126) U/L Albumin (3.5-5.0) g/dL Microbiology - Last 24 Hours (Table) 09/22/24 18:46 Blood Culture - Preliminary Blood Assessment and Plan Assessment: Septic shock, likely secondary to Pseudomonas pneumonia. Probable fungemia, currently on Eraxis. Chronic hypoxemic and hypercapnic respiratory failure, ventilator dependent, on a home ventilator, S/P tracheostomy. Left lower lobe atelectasis, possible pneumonia, with pseudomonal infection. History of severe tracheal stenosis, S/P tracheostomy. History of recurrent pneumonia, involving the left lower lobe. Tracheobronchomalacia. History of DVT. History of CVA. History of right below-knee amputation. Previous history of asystole/cardiac arrest, 2021. History of Crohn's disease, S/P enterocutaneous fistula, diverting ileostomy. Plan: Plan dated August 31, 2024. The patient is seen today in room 252. The patient's weight had on fluids, and the lactated Ringer's is cut back to 40 cc an hour. The patient will get 1 dose of Lasix IV push. Ventilator settings are noted. No blood gases today. It was apparently refused by the patient. Doppler of the left upper extremity was negative for DVT. Will check a procalcitonin level. The patient continues on norepinephrine at 8 mcg/min. He is getting TPN at 91 cc an hour. We will continue to follow make recommendations along the way. Labs, x-rays, and all medications are reviewed. Prognosis is certainly guarded. Dictation was produced using [employer] software. Please excuse any grammatical, word or spelling errors. Plan dated September 05, 2024. The patient is seen today in room 252. He is connected to his home mechanical v entilator. Settings of the same and include volume assist-control, rate 20, tidal volume 450, FiO2 45%, PEEP of 5. The patient is getting TPN at 65 cc an hour, norepinephrine has been weaned down to 1 mcg/min. He is getting lactated Ringer's at 50 cc an hour. He continues on Avycaz and tobramycin. We will continue to follow make recommendations. The patient also continues on hydrocortisone, for relative adrenal insufficiency. Prognosis is certainly guarded. We will continue to follow. Dictation was produced using [employer] software. Please excuse any grammatical, word or spelling errors. Plan dated September 06, 2024. The patient is seen today in room 252. He continues on mechanical ventilation. The patient is having increased secretions. Will add a scopolamine patch. He continues on Avycaz, and tobramycin. In addition, he continues on TPN at 65 cc an hour, and lactated Ringer's at 50 cc an hour. All labs, x-rays, and medications are reviewed. Chest x-ray is unchanged. We will continue to follow make recommendations. Prognosis is guarded. Dictation was produced using [employer] dictation software. Please excuse any grammatical, word or spelling errors. Plan dated September 21, 2024. The patient is again seen today in room 252, with presumed ongoing sepsis. The patient has norepinephrine on standby, for blood pressure support, and recently was maxed out on multiple vasopressors. Currently, the patient continues on Eraxis, and vancomycin. The patient also continues on TPN at 75 cc an hour, propofol at 50 mcg/kg/min. All labs, x-rays, medications are reviewed. The patient's overall prognosis remains very poor. We will continue to follow. He remains a full code. Dictation was produced using [employer] software. Please excuse any grammatical, word or spelling errors. Plan dated September 22, 2024. The patient was seen to get her up to 52. We were able to place a right radial art line in the patient. There was good blood return from the arterial line, although the waveform was dampened. The patient continues on appropriate medications, including propofol at 50 mcg/kg/min, norepinephrine at 3 mcg/min. The patient is also getting TPN at 75 cc an hour. He is receiving hemodialysis today. He continues on Eraxis. After hemodialysis, the patient will have a arterial blood gas. Additional recommendations and suggestions are forthcoming. Prognosis is guarded. All labs, x-rays, and medications are reviewed. We will continue to follow the patient, make recommendations. Dictation was produced using [employer] software. Please excuse any grammatical, word or spelling errors. Plan dated September 23, 2024. The patient is again seen today in room 252. The patient's blood gases show pO2 100, pCO2 44, pH of 7.31. Patient continues on norepinephrine at 5.6 mcg/min, propofol at 50 mcg/kg/min. The patient is getting TPN at 33 cc an hour. The patient continues on Eraxis. He had hemodialysis yesterday. All labs, x-rays, and medications are reviewed. The patient remains a full code. Will continue to follow the patient, make recommendations along the way. Prognosis is guarded. Dictation was produced using [employer] software. Please excuse any grammatical, word or spelling errors. Plan dated September 24, 2024. According to the nurses, the patient had an uneventful night. He continues on volume assist-control, with a rate of 36, tidal volume 400, FiO2 40%, PEEP of 12. Blood gases are adequate with a pO2 of 100, pCO2 of 42, pH of 7.39. The patient continues on sedation with propofol at 50 mcg/kg/min. For his lower blood pressure, he is on norepinephrine at 4 mcg/min. He continues on parenteral nutrition, with TPN at 33 cc an hour. He also continues on Eraxis for fungemia. Hemoglobin is 7. No transfusion at this time. All labs, x-rays, and medications are reviewed. We will continue to follow the patient, make recommendations. The patient's overall prognosis remains poor. Dictation was produced using [employer] software. Please excuse any grammatical, word or spelling errors. Plan dated September 25, 2024. The patient is seen today in room 252. He continues on Eraxis. The patient continues on mechanical ventilation. Labs, x-rays, and medications are reviewed. We will continue to follow the patient, make recommendations. He is getting TPN at 33 cc an hour, and propofol at 30 mcg/kg/min. He continues on norepinephrine at about 3 mcg/min. He is having hemodialysis today. The goal is to remove somewhere between 2 to 3 L of fluid, pending his blood pressure response. The patient will be dropped from 12 cm of water down to 8 cm of water. Blood gases have been reviewed. All labs, x-rays, and medications have been reviewed. We will continue to follow. Prognosis is guarded. Dictation was produced using [employer] software. Please excuse any grammatical, word or spelling errors. Time with Patient: Greater than 30
[2024-09-25 12:02] LABS: Glucose,Whole Blood 94 mg/dL (70-110)
--- NOTE | 2024-09-25 15:19 | P.PN ---
Subjective Progress Note Date: 09/25/24 Principal diagnosis: Reason for follow-up is sepsis and pneumonia/candidemia Patient is a 49-year-old male with a past medical history significant for CVA TIA DVT pneumonia history of complicated Crohn's disease in this patient who did have multiple abdominal surgeries patient also have a tracheostomy has been brought to the hospital with Generalized weakness did have a fever concerning for pneumonia on today's evaluation that is 09/25/2024, the patient continues to be afebrile, the patient is intubated on the vent FiO2 currently at 30% patient remains stable low-dose pressor support no other changes reported by the nursing staff. Patient white count 7.46, creatinine 1.06 blood culture repeat has been negative so far Objective - Vital Signs Vital signs: Vital Signs Temp 96.1 F L 09/25/24 13:08 Pulse 76 09/25/24 13:08 Resp 36 H 09/25/24 13:08 BP 103/51 09/25/24 13:08 Pulse Ox 97 09/25/24 12:30 FiO2 30 09/25/24 12:00 Intake & Output 09/24/24 09/25/24 09/25/24 18:59 06:59 18:59 Intake Total 0436.054 1653.375 943.530 Output Total 955 5290 5981 Balance 211.517 -3199.625 -5037.470 Weight 111.1 kg 111.1 kg Intake: IV 539 225 261 0.9 KVO 110 120 60 Pressure Bag, CVP and ART 66 72 36 TPN 363 33 165 Intake, IV Titration 099.265 5429.375 249.530 Amount Anidulafungin 100 mg In 100 Sodium Chloride 0.9% 100 ml @ 84 mls/hr IVPB DAILY ANNIE Rx#:[id number] Mvi, Adult No.4 with Vit 569.8 K 10 ml Trace (Conc-1Ml/ Dose) 1 ml Sodium Acetate 80 meq Sodium Chloride 4Meq/ml Vial 16 meq Magnesium Sulfate gm 0.25 gm In Amino Acids 5 %/ Dextrose 20 % 1,000 ml @ 33 mls/hr IV .Q24H ANNIE Rx #:[id number] Norepinephrine 8 mg In 153.420 38.789 74.248 Sodium Chloride 0.9% 250 ml @ 0.03 MCG/KG/MIN 6. 513 mls/hr IV .Q24H ANNIE Rx#:[id number] propofoL 1,000 mg In 374.097 393.786 175.282 Empty Bag 1 bag @ 50 MCG/ KG/MIN 32.34 mls/hr IV . Q3H6M ANNIE Rx#:[id number] TPN/PPN 363 33 TPN 363 33 Hemodialysis 500 400 Output: Drainage 515 041 4699 Medial Abdomen 746 428 7906 Urine 55 40 31 Hemodialysis 2500 2400 Hemodialysis Net Amount 1999 1999 Other: Voiding Method Indwelling Catheter Indwelling Catheter Indwelling Catheter ABP, PAP, CO, CI - Last Documented Arterial Blood Pressure 50/42 - Exam GENERAL DESCRIPTION: Middle-age male intubated on the vent RESPIRATORY SYSTEM: Unlabored breathing , decreased breath sounds at bases HEART: S1 S2 regular rate and rhythm , ABDOMEN: Soft , no tenderness EXTREMITIES: Swelling to the leg - Labs CBC & Chem 7: 09/25/24 06:00 09/25/24 04:10 Labs: Abnormal Lab Results - Last 24 Hours (Table) 09/24/24 09/25/24 09/25/24 Range/Units 17:15 01:24 04:10 RBC (4.40-5.60) 10*6/uL Hgb (13.0-17.0) g/dL Hct (39.6-50.0) % MCH (27.0-32.0) pg MCHC (32.0-37.0) g/dL Immature Gran # (0.00-0.04) 10*3/uL Lymphocytes # (0.90-5.00) 10*3/uL Immature Plt Fraction (1.1-6.1) % ABG pH (7.35-7.45) ABG pO2 (83-108) mmHg ABG HCO3 (21-25) mmol/L ABG Total CO2 (19-24) mmol/L ABG O2 Saturation (94-97) % Hemoglobin (13.0-17.5) gm/dL Sodium 129 L (137-145) mmol/L Chloride 94 L (98-107) mmol/L BUN 35 H (9-20) mg/dL Glucose 103 H (74-99) mg/dL POC Glucose (mg/dL) 119 H 122 H (70-110) mg/dL Calcium 7.9 L (8.4-10.2) mg/dL Phosphorus 5.0 H (2.5-4.5) mg/dL Total Bilirubin 2.5 H (0.2-1.3) mg/dL AST 75 H (17-59) U/L ALT 93 H (4-49) U/L Alkaline Phosphatase 135 H (38-126) U/L Albumin 2.5 L (3.5-5.0) g/dL 09/25/24 09/25/24 09/25/24 Range/Units 05:18 06:00 06:21 RBC 2.87 L (4.40-5.60) 10*6/uL Hgb 7.6 L (13.0-17.0) g/dL Hct 23.9 L (39.6-50.0) % MCH 26.5 L (27.0-32.0) pg MCHC 31.8 L (32.0-37.0) g/dL Immature Gran # 0.07 H (0.00-0.04) 10*3/uL Lymphocytes # 0.73 L (0.90-5.00) 10*3/uL Immature Plt Fraction 9.0 H (1.1-6.1) % ABG pH 7.49 H (7.35-7.45) ABG pO2 82 L (83-108) mmHg ABG HCO3 27 H (21-25) mmol/L ABG Total CO2 28 H (19-24) mmol/L ABG O2 Saturation 97.3 H (94-97) % Hemoglobin 8.0 L (13.0-17.5) gm/dL Sodium (137-145) mmol/L Chloride (98-107) mmol/L BUN (9-20) mg/dL Glucose (74-99) mg/dL POC Glucose (mg/dL) 115 H (70-110) mg/dL Calcium (8.4-10.2) mg/dL Phosphorus (2.5-4.5) mg/dL Total Bilirubin (0.2-1.3) mg/dL AST (17-59) U/L ALT (4-49) U/L Alkaline Phosphatase (38-126) U/L Albumin (3.5-5.0) g/dL Microbiology - Last 24 Hours (Table) 09/22/24 18:46 Blood Culture - Preliminary Blood Assessment and Plan (1) Pneumonia Current Visit: Yes Status: Acute Code(s): J18.9 - PNEUMONIA, UNSPECIFIED ORGANISM SNOMED Code(s): 739009109 (2) Sepsis Current Visit: Yes Status: Acute Code(s): A41.9 - SEPSIS, UNSPECIFIED ORGANISM SNOMED Code(s): 81296515 (3) Candidemia Current Visit: Yes Status: Acute Code(s): B37.7 - CANDIDAL SEPSIS SNOMED Code(s): 231867940 Plan: 1patient is a hospital with sepsis in this patient who did have fever tachycardia elevated lactic acid upon meeting criteria for SIRS/sepsis source likely pneumonia 2-patient is status post bronchoscopy lavage results currently growing Pseudomonas that is resistant to Avycaz and corynebacterium, sensitivity on corynebacterium is pending 3-patient with Pseudomonas pneumonia for the patient has completed his antibiotic therapy 4-patient did have candidemia source is likely left chest wall PICC line which has been discontinued has been sent for the culture central line placed by integration project manager, blood culture repeat on 09/18/2024 positive blood culture repeat 09/22/2024 so far negative. 5patient currently being treated with Eraxis and will need at least 10 days from his negative blood culture Dictation was produced using [employer] dictation software. please excuse any grammatical, word or spelling errors. Time with Patient: Less than 30
--- NOTE | 2024-09-25 15:49 | P.PN ---
Subjective Patient is seen for follow-up for acute kidney injury. Patient remains on the vent. He is awake. Started hemodialysis on 09/22/2024 for volume overload and worsening acute kidney injury Levophed at 0.03 mcg/kg No significant urine output FiO2 at 50% Seen on hemodialysis. Tolerating treatment well. Goal UF about 2.5 to 3 L today. Objective - Vital Signs Vital signs: Vital Signs Temp 96.1 F L 09/25/24 13:08 Pulse 67 09/25/24 15:38 Resp 36 H 09/25/24 13:08 BP 103/51 09/25/24 13:08 Pulse Ox 97 09/25/24 12:30 FiO2 30 09/25/24 15:38 Intake & Output 09/24/24 09/25/24 09/25/24 18:59 06:59 18:59 Intake Total 2350.372 6883.375 943.530 Output Total 955 5290 5981 Balance 211.517 -3199.625 -5037.470 Weight 111.1 kg 111.1 kg Intake: IV 539 225 261 0.9 KVO 110 120 60 Pressure Bag, CVP and ART 66 72 36 TPN 363 33 165 Intake, IV Titration 073.748 3857.375 249.530 Amount Anidulafungin 100 mg In 100 Sodium Chloride 0.9% 100 ml @ 84 mls/hr IVPB DAILY ANNIE Rx#:[id number] Mvi, Adult No.4 with Vit 569.8 K 10 ml Trace (Conc-1Ml/ Dose) 1 ml Sodium Acetate 80 meq Sodium Chloride 4Meq/ml Vial 16 meq Magnesium Sulfate gm 0.25 gm In Amino Acids 5 %/ Dextrose 20 % 1,000 ml @ 33 mls/hr IV .Q24H ANNIE Rx #:[id number] Norepinephrine 8 mg In 153.420 38.789 74.248 Sodium Chloride 0.9% 250 ml @ 0.03 MCG/KG/MIN 6. 513 mls/hr IV .Q24H ANNIE Rx#:[id number] propofoL 1,000 mg In 374.097 393.786 175.282 Empty Bag 1 bag @ 50 MCG/ KG/MIN 32.34 mls/hr IV . Q3H6M ANNIE Rx#:[id number] TPN/PPN 363 33 TPN 363 33 Hemodialysis 500 400 Output: Drainage 273 613 6424 Medial Abdomen 303 119 9634 Urine 55 40 31 Hemodialysis 2500 2400 Hemodialysis Net Amount 1999 1999 Other: Voiding Method Indwelling Catheter Indwelling Catheter Indwelling Catheter ABP, PAP, CO, CI - Last Documented Arterial Blood Pressure 50/42 - Exam Patient is on the vent he is awake. Examination of the heart S1 and S2 Tracheostomy noted Examination of the lungs bilateral breath sounds are heard Abdomen is distended Examination of lower extremities shows right BKA and significant edema in the left leg as well as scrotal edema noted. - Labs CBC & Chem 7: 09/25/24 06:00 09/25/24 04:10 Labs: Abnormal Lab Results - Last 24 Hours (Table) 09/24/24 09/25/24 09/25/24 Range/Units 17:15 01:24 04:10 RBC (4.40-5.60) 10*6/uL Hgb (13.0-17.0) g/dL Hct (39.6-50.0) % MCH (27.0-32.0) pg MCHC (32.0-37.0) g/dL Immature Gran # (0.00-0.04) 10*3/uL Lymphocytes # (0.90-5.00) 10*3/uL Immature Plt Fraction (1.1-6.1) % ABG pH (7.35-7.45) ABG pO2 (83-108) mmHg ABG HCO3 (21-25) mmol/L ABG Total CO2 (19-24) mmol/L ABG O2 Saturation (94-97) % Hemoglobin (13.0-17.5) gm/dL Sodium 129 L (137-145) mmol/L Chloride 94 L (98-107) mmol/L BUN 35 H (9-20) mg/dL Glucose 103 H (74-99) mg/dL POC Glucose (mg/dL) 119 H 122 H (70-110) mg/dL Calcium 7.9 L (8.4-10.2) mg/dL Phosphorus 5.0 H (2.5-4.5) mg/dL Total Bilirubin 2.5 H (0.2-1.3) mg/dL AST 75 H (17-59) U/L ALT 93 H (4-49) U/L Alkaline Phosphatase 135 H (38-126) U/L Albumin 2.5 L (3.5-5.0) g/dL 09/25/24 09/25/24 09/25/24 Range/Units 05:18 06:00 06:21 RBC 2.87 L (4.40-5.60) 10*6/uL Hgb 7.6 L (13.0-17.0) g/dL Hct 23.9 L (39.6-50.0) % MCH 26.5 L (27.0-32.0) pg MCHC 31.8 L (32.0-37.0) g/dL Immature Gran # 0.07 H (0.00-0.04) 10*3/uL Lymphocytes # 0.73 L (0.90-5.00) 10*3/uL Immature Plt Fraction 9.0 H (1.1-6.1) % ABG pH 7.49 H (7.35-7.45) ABG pO2 82 L (83-108) mmHg ABG HCO3 27 H (21-25) mmol/L ABG Total CO2 28 H (19-24) mmol/L ABG O2 Saturation 97.3 H (94-97) % Hemoglobin 8.0 L (13.0-17.5) gm/dL Sodium (137-145) mmol/L Chloride (98-107) mmol/L BUN (9-20) mg/dL Glucose (74-99) mg/dL POC Glucose (mg/dL) 115 H (70-110) mg/dL Calcium (8.4-10.2) mg/dL Phosphorus (2.5-4.5) mg/dL Total Bilirubin (0.2-1.3) mg/dL AST (17-59) U/L ALT (4-49) U/L Alkaline Phosphatase (38-126) U/L Albumin (3.5-5.0) g/dL Microbiology - Last 24 Hours (Table) 09/22/24 18:46 Blood Culture - Preliminary Blood Assessment and Plan Assessment: 1. Acute kidney injury secondary to ATN secondary to septic shock and vancomycin toxicity. Vancomycin level 49.3 on 09/19/2024. Patient remains oliguric with significant volume overload noted. Started hemodialysis on 09/22/2024. Receiving daily treatments for volume overload 2. Septic shock secondary to pneumonia and fungemia. 3. Acute blood loss anemia with hemoglobin of 6.3 today. Currently receiving a unit of blood. 4. Volume overload. 5. Chronic hypoxic and hypercapnic respiratory failure, home ventilator depen dent. 6. History of cardiac arrest. 8. Status post right BKA. Plan: Dialysis today and repeat in a.m. continue to increase UF as tolerated. Continue antibiotics and antifungal treatment as per ID Continue with TPN Monitor electrolytes.
--- NOTE | 2024-09-25 16:20 | P.PN ---
Progress Note - Text Progress Note Date: 09/25/24 Chief Complaint: Short of breath 49-year-old patient, follows with Dr. Murcia History of paraplegia, home vent at night, tracheostomy multiple admissions to the ICU for recurrent pneumonia. Patient's previous bronchial cultures been positive for Pseudomonas. He was discharged recently on IV cefepime. Also has a history of Crohn's disease with previous colectomy diverting ileostomy. History of DVT for which patient is on subcu Lovenox. Also had drug-resistant MRSA Pseudomonas. Patient currently does not have areas significant trach secretions. He has continues TPN. Has a right BKA. He does have slight movement in the right hand. Able to follow commands by nodding his head. Answering questions. He is scared by his elder son open. I was also the DPOA. August 30: Overnight patient started having more secretions through the tracheostomy. Vancomycin was added. Also blood pressure running low patient was put on Levophed drip. Otherwise sinus rhythm. Patient remains on the ventilator. Will also send off stool for C. difficile. Also patient IV cefepime. Getting TPN. August 31: ICU. Patient had positive fluid balance. Was given IV Lasix earlier. Remains on Levophed. Spiking fevers. Getting TPN. Stool negative for C. difficile. Patient is growing MDRO Pseudomonas aeruginosa. ID is ordered IV Zerbaxa. Which is currently not available. Patient's friend is visiting him in the ICU. Light trach secretion September 01: ICU. On the ventilator. FiO2 45%. PEEP of 5. Continues to have light trach secretions. Sputum cultures again growing Pseudomonas. Zerbaxa was obtained and resumed. Blood pressure running low. On Levophed. Patient's younger son at the bedside. Colostomy working fine. Has been spiking fevers. Cooling blanket. Ice packs. September 02: ICU. Ventilator FiO2 45%. PEEP of 5. Continues to have some trach secretions. IV Zerbaxa IV tobramycin. TPN lipids to continue. Also Levophed. Patient started cooling blankets since yesterday for temperatures. Along with the nurse speech therapy records were reviewed from last few admissions. Patient with multiple MBS and bedside swallow eval. No trouble with swallowing. Patient put on a chopped diet. Thin liquids. Patient did spike a fever of 101.7 earlier today. Low ionized calcium. IV gluconate given. September 03: ICU. On ventilator FiO2 45%. PEEP of 5. Mild trach secretions. Getting IV TPN lipids. IV tobramycin. Zerbaxa was substituted to Avycaz. By ID. No fever per se since yesterday. For blood pressure patient is also on Levophed and vasopressin. September 04: ICU. On ventilator FiO2 45%. PEEP of 5. Clear trach secretions. Getting IV TPN lipids. IV tobramycin. And IV Avycaz. Remains afebrile.. On Levophed and vasopressin. Awake. 09/06/2024 Patient is seen and evaluated in ICU; remains on mechanical ventilator, actually his home ventilator, with settings of volume assist-control, rate 20, tidal volume 450, FiO2 45%, PEEP of 5. - patient has been refusing blood; no ABGs to. He is getting lactated Ringer's at 50 cc an hour, TPN at 65 cc an hour. - patient remains on the same antibiotics. - Labs reviewed which reveal white count 5.21, hemoglobin 7.9, hematocrit 27.5, and platelet count 64,000. Sodium 141, potassium 3.5, chlorides 102, CO2 32, BUN 25, and creatinine 0.35. Glucose is 152. Calcium is 8. Albumin is 2.1. -Chest x-ray is largely unchanged. Critical care managing mechanical ventilation; recommending to add scopolamine patch for increased secretion -Patient remains on Avycaz and tobramycin - Continue with current TPN 09/07 Patient remains in the ICU lethargic. He is s/p tracheostomy Overnight he was more hypoxic they have to increase PEEP to 8. Also has a lot of secretions when needed for secretions suctioning to try to become apneic per Staff. Patient currently receiving Avycaz and tobramycin. on TPN also 09/08 Patient remains in the ICU awake and alert status post tracheostomy. He has contractures of both upper and lower extremities He is complaining from pain in his lungs. He is status post flexible bronchoscopy and bronchoalveolar lavage yesterday. He has previous sputum culture positive for Pseudomonas currently covered with ceftazidime and tobramycin. He is also on Lovenox 90 mg 09/09 Patient still in the ICU on mechanical ventilation via tracheostomy. PEEP is 8.0 as is yesterday Also he spiked little fever to 100.7. IV vancomycin is added to tobramycin and ceftazidime He is getting also bronchoscopy follow-up culture results 09/10 Patient feels clinically the same, he still getting breathing via mechanical ventilation through his tracheostomy with PEEP of 8. Patient feels he is required suctioning through his tracheostomy tube. He denies chest pain or pain anywhere else he can communicate by head signs and gestures. Hemodynamically stable and afebrile hemoglobin 7.4 platelet count 73 Glucose is controlled potassium 3.3 He remains on broad-spectrum antibiotic Rocephin at this time tobramycin and IV vancomycin added yesterday because he had low-grade fever. He is getting TPN. IV fluid Ringer lactate was stopped and patient was started on IV Lasix 20 mg 3 times a day continue with therapeutic dose of Lovenox as well 09/11 Patient remains in the ICU Remains on mechanical ventilation via tracheostomy He status post bronchoalveolar lavage 2 days ago, culture is growing Pseudomonas aeruginosa and corynebacterium Patient remains on broad-spectrum antibiotics with IV vancomycin, tobramycin, ceftazidime On IV Lasix also is on therapeutic dose of Lovenox 90 mg twice daily No IV fluids 09/12 Patient remains in the ICU Clinically close to what he was over the last 2 days still getting oxygen via his tracheostomy He remains on broad-spectrum antibiotic with Ceftin this time and IV vancomycin. Also he is on IV Lasix 20 mg and therapeutic dose of Lovenox. 09/13 Patient remains in the ICU on mechanical ventilation via tracheostomy Patient looks better today, he breathing better Less secretion Fentanyl patch increased 09/14. Patient seen and examined. Patient continues to be on mechanical ventilation via trach mask. Currently on TPN. Currently on IV Zerbaxa and vancomycin 09/15. Patient seen and examined.Vital signs done showed the patient overnight, heart rate 106, blood pressure 107/40, currently on ventilation. Labs reviewed showed WBC 7.27, hemoglobin 7.5, sodium 148 on potassium 4.3, BUN 23, creatinine 0.47 09/16. Patient seen and examined labs reviewed showing WBC 5.45, hemoglobin 9.6, platelet count 131, sodium 146, potassium 4.1, BUN 20, creatinine 0.47. Continue small amount of Levophed. Currently on Zerbaxa and vancomycin. Currently on TPN September 17: ICU. Patient has taken a turn for the worse today. Significant thick white secretions from the trach. Sinus rhythm. Receiving TPN. Patient is on Levophed and vasopressor. Rather high dose. FiO2 [address] of 10. [address] Ho earlier spoke to the patient/family. Remains full code September 18: ICU. Intubated FiO2 70 PEEP of 12. Sinus rhythm. Drips include IV propofol at 50 and Levophed at 0.13. Patient is off vasopressin. Patient secretions. Family at the bedside. September 19: ICU. Intubated. FiO2 50 and a PEEP of 12. Drips include IV Levophed and propofol. Also started on Lasix drip 10 mg an hour yesterday. Secretions present. September 20: ICU. Intubated. FiO2 50 and a PEEP of 12. Hemoglobin 6.3. Secondary to blood being given. Patient been on and off Levophed. On propofol. Lipids have been held. Continues with TPN. Lasix drip was discontinued. Lovenox has been held because of low hemoglobin. Unable anemia is felt to be combination of regular blood draws and possible element element of hemolysis from all the infection. No dark stool. Family at the bedside September 21: ICU. Intubated. Received 2 units of blood yesterday. Hemoglobin 7.6 today. Per nephrology renal replacement therapy. Dialysis access placed by Dr. Cadena. Patient earlier today on Levophed. Propofol. Getting TPN. Sinus rhythm. Urine output decreased September 22: ICU. Intubated. FiO2 15 of PEEP of 12. Seen earlier today. Dialysis being started. Been on IV Levophed propofol. Sinus rhythm. TPN. Sinus rhythm. September 23: ICU. Intubated. Due for another dialysis today. Saw the patient earlier today. Remains on IV Levophed propofol. Sinus rhythm. TPN. On fentanyl patch. September 24: ICU. Intubated. FiO2 40 and PEEP of 12. Remains on IV Levophed and propofol. IV TPN. Decrease trach secretions. IV antibiotics. Was due for dialysis earlier today. September 25: ICU. Intubated. FiO2 30%. Patient getting IV Levophed and propofol. IV TPN. Dialysis today. Receiving IV antibiotics. Does opens eyes occasionally. Some commands per nursing. Active Medications Albuterol/Ipratropium (Ipratropium-Albuterol 3 Ml Neb) 3 ml INHALATION RT-Q4H PRN PRN Reason: shortness of breath Last Admin: 09/25/24 15:38 Dose: 3 ml Artificial Tears (Artificial Tears-Hypromellose Drops 15 Ml Btl) 1 drops BOTH EYES QID PRN PRN Reason: Dry Eye(s) Last Admin: 09/04/24 12:52 Dose: 1 drops Chlorhexidine Gluconate (Chlorhexidine Gluconate 15 Ml Cup) 15 ml MUCOUS MEM BID ANNIE Last Admin: 09/25/24 10:26 Dose: 15 ml Dextrose/Water (Dextrose 50% Syringe 50 Ml) 25 ml IVP PER PROTOCOL PRN; Protocol PRN Reason: Hypoglycemia Dextrose/Water (Dextrose 50% Syringe 50 Ml) 50 ml IVP PER PROTOCOL PRN; Protocol PRN Reason: Hypoglycemia Fentanyl (Fentanyl 100mcg/Hr Patch) 1 patch TRANSDERM Q72H ANNIE; Protocol Last Admin: 09/25/24 10:30 Dose: 1 patch Hydrocortisone Sodium Succinate (Hydrocortisone Succinate 100 Mg/2 Ml Vial) 50 mg IV Q12HR ANNIE Last Admin: 09/25/24 12:57 Dose: 50 mg Hydromorphone HCl (Hydromorphone 1 Mg/Ml 1 Ml Syringe) 1 mg IVP Q3HR PRN PRN Reason: Moderate Pain (Scale 4 to 6) Last Admin: 09/25/24 12:11 Dose: 1 mg Anidulafungin 100 mg/ Sodium (Chloride) 130 mls @ 84 mls/hr IVPB DAILY ANNIE; Protocol Last Admin: 09/25/24 12:57 Dose: 84 mls/hr Propofol 1,000 mg/ IV Solution 100 mls @ 32.34 mls/hr IV .Q3H6M ANNIE; Protocol Last Titration: 09/25/24 13:05 Dose: Infused Norepinephrine Bitartrate 8 mg (/ Sodium Chloride) 258 mls @ 6.513 mls/hr IV .Q24H ANNIE; Protocol Last Titration: 09/25/24 09:45 Dose: 0.02 mcg/kg/min, 4.342 mls/hr Parenteral Vitamin Supplement 10 ml/ Zinc/Copper/Manganese/Selenium 1 ml/ Sodium Acetate 80 meq/ Sodium Chloride 16 meq / Magnesium Sulfate 0.25 gm/Amino Acids/Dextrose 1,055.5 mls @ 33 mls/hr IV .Q24H ANNIE Stop: 09/26/24 05:50 Last Admin: 09/25/24 06:17 Dose: 33 mls/hr Parenteral Vitamin Supplement 10 ml/ Zinc/Copper/Manganese/Selenium 1 ml/ Sodium Acetate 80 meq/ Sodium Chloride 32 meq / Calcium Gluconate 0.5 gm/Potassium Chloride 14 meq/Magnesium Sulfate 0.25 gm/Amino Acids/Dextrose 1,071.5 mls @ 33 mls/hr IV .Q24H ANNIE Insulin Human Lispro (Insulin Lispro (Humalog) 100 Unit/Ml 10 Ml Vl) 0 unit SQ Q6HR ANNIE; Protocol Last Admin: 09/25/24 12:56 Dose: Not Given Lorazepam (Lorazepam 1 Mg/0.5 Ml Vial) 0.5 mg IV Q6HR PRN PRN Reason: Anxiety Last Admin: 09/15/24 18:26 Dose: 0.5 mg Miscellaneous Information (Pneumonia Protocol Utilized 1 Each Misc) 1 each PO ONCE PRN PRN Reason: Per Protocol Miscellaneous Information (Potassium Replacement Protocol 1 Each Misc) 1 each MISCELLANE DAILY PRN; Protocol PRN Reason: Per Protocol Miscellaneous Information (Magnesium Replacement Protocol 1 Each Misc) 1 each M ISCELLANE DAILY PRN; Protocol PRN Reason: Per Protocol Naloxone HCl (Naloxone 0.4 Mg/Ml 1 Ml Vial) 0.2 mg IV Q2M PRN PRN Reason: Opioid Reversal Nystatin (Nystatin 100,000 Unit/Gm Powd 15 Gm) 1 applic TOPICAL BID ANNIE; Protocol Last Admin: 09/25/24 10:26 Dose: 1 applic Ondansetron HCl (Ondansetron 4 Mg/2 Ml Vial) 4 mg IVP Q6HR PRN PRN Reason: Nausea And Vomiting Last Admin: 09/01/24 19:41 Dose: 4 mg Pantoprazole Sodium (Pantoprazole 40 Mg/10 Ml Vial) 40 mg IV DAILY ANNIE Last Admin: 09/25/24 12:56 Dose: 40 mg Petrolatum (Zinc Oxide Paste (Z-Guard) 1 Applic) 1 applic TOPICAL BID PRN; Protocol PRN Reason: Wound Healing Social history: Patient started smoking at the age of [age] 1 pack a day stopped in 2017. Nonambulatory. Is cared by his son over. Who is also the OA Physical examination: VITAL SIGNS: 96.1, 76, 36, 103 x 51, 97% on the ventilator GENERAL:, Occasionally opens eyes EYES: Pupils equal. Conjunctiva loan l. HEENT: External appearance of nose and ears normal, oral cavity dry NECK: JVD unable to assess; masses not palpable. Tracheostomy HEART: First and second heart sounds are normal; no edema. LUNGS: Respiratory rate increased, decreased breath sounds, some crackles ABDOMEN: Soft, nontender, liver spleen not palpable, no masses palpable. Double barrel ostomy. PSYCH: Occasionally opens eyes MUSCULOSKELETAL: Right BKA. Left foot drop. Left hand contracture. Right hand also with contracture but able to have some movements NEUROLOGICAL: Cranial nerves grossly intact; no facial asymmetry, slight movement in the right arm. L INVESTIGATIONS, reviewed in the clinical context: September 25: White count 7.4 hemoglobin 7.6 platelets 194 potassium 3.5 creatinine 1.06 September 24: White count 6.6 hemoglobin 7 platelets 158 potassium 4 BUN 58 creatinine 1.52 phosphorus 6.2 : White count 9.0 hemoglobin 7.7 platelets 155 potassium 4.5 creatinine 1.69 September 22: White count 7.4 hemoglobin 7.3 platelets 114 potassium 5.4 BUN 110 creatinine 1.79 September 18: White count 14.9 hemoglobin 7.6 ABG show pH of 7.2PCO2 of 68P O2 was 77 potassium was 6.1 repeat 5.2 creatinine 0.82 September 17: White count 20 hemoglobin 8.5 platelets 199 potassium 4.2 BUN 25 creatinine 0.4. ABG: pH 7.17 pCO2 79 PO277. September 02: White count 3.6 hemoglobin 9.7 platelets 130 potassium 3.9 BUN 23 creatinine 0.36 ionized calcium 4.3 TSH 2.7 Sputum culture: Pseudomonas aeruginosa: Sensitive to Zosyn, tobramycin, ceftazidime Sputum culture: Pseudomonas aeruginosa August 30: White count 3.5 hemoglobin 10.0 platelets 133 potassium 3.5 creatinine 0.36 August 29, 2024: White count 6.2 hemoglobin 12.3 platelets 216 sodium 128 potassium 3.1 BUN 50 creatinine 0.46 lactic acid 2.1 calcium 10.8 phosphorus 3.0 troponin I 0.016 UA: Negative for nitrite Influenza type A, type B, RSV, SARS-CoV-2: Not detected EKG tracing personally reviewed by me-normal sinus rhythm Chest x-ray film personally reviewed by me-right basilar infiltrate Previous labs: Sputum culture July 20, 2024: Pseudomonas aeruginosa Assessment plan: - basal pneumonia. Previous admission sputum was positive for Pseudomonas aeruginosa-:: Slow to respond Has received different antibiotics. Currently: Aniedulefungin IV, IV ceftolozane tazobactam, IV vancomycin Being followed by pulmonary, and ID - Fluid overload Had received Lasix drip - Acute kidney injury from ATN from septic shock. Also consider vancomycin toxicity. Oliguric. Volume overload. Dialysis catheter placed by Dr. Cadena-September 21. First dialysis was on September 22.-Has been getting daily dialysis - Septic shock: Slow to respond Been on Levophed - Acute on chronic hypoxic and hypercapnic respiratory failure, vent dependent at night at home: Slow to respond On ventilator support. Propofol - Tracheostomy with trach collar -Acute normocytic anemia of chronic disease and hospital-acquired anemia from blood draws and possible hemolysis from infection 2 units of blood given September 20. - Thrombocytopenia likely from sepsis Follow - Right below-knee amputation - Chronic quadriparesis. Including left foot drop. Left arm contracture. Some right hand contracture. Some movement in the right arm - Crohn's disease with double barrel ostomy bag in place since 09/2021 - TPN and lipids Lipids have been held during propofol - Full code - DPOA, son BECKY Antibiotics. Daily dialysis. Pressor support. Past Medical History Past Medical History: CVA/TIA, Deep Vein Thrombosis (DVT), Pneumonia Additional Past Medical History / Comment(s): Hx CVA in 2012, DVT R arm, Crohns. colostomy Bag placed in 09/2021. History of Any Multi-Drug Resistant Organisms: MRSA, Other MDRO Date of last positivie culture/infection: 07/20/24-Other MDRO; 12/14/23-MRSA MDRO Source:: Other MDRO - sputum, BAL; MRSA- nasal Past Surgical History: Bowel Resection, Cholecystectomy, Orthopedic Surgery Additional Past Surgical History / Comment(s): R BKA, trach with chronic home vent Past Anesthesia/Blood Transfusion Reactions: No Reported Reaction Additional Past Anesthesia/Blood Transfusion Reaction / Comment(s): recalled from previous admission Smoking Status: Never smoker
[2024-09-25 17:49] LABS: Glucose,Whole Blood 127 mg/dL (70-110)
[2024-09-26 00:15] LABS: Glucose,Whole Blood 117 mg/dL (70-110)
[2024-09-26 05:16] LABS: Glucose,Whole Blood 93 mg/dL (70-110)
[2024-09-26] MEDS: [UNRECOGNIZED DRUG - REMARK] IV SCH (05:27)
[2024-09-26 05:29] LABS: Basophils # (A) 0.00 10*3/uL (0.00-0.10); Basophils % (A) 0.0 %; Eosinophils # (A) 0.05 10*3/uL (0.04-0.35); Eosinophils % (A) 0.7 %; HCT 23.7 % (39.6-50.0); HGB 7.5 g/dL (13.0-17.0); Lymphocytes # (A) 0.76 10*3/uL (0.90-5.00); Lymphocytes % (A) 10.4 %; MCH 26.6 pg (27.0-32.0); MCHC 31.6 g/dL (32.0-37.0); MCV 84.0 fL (80.0-97.0); Monocytes # (A) 0.36 10*3/uL (0.20-1.00); Monocytes % (A) 4.9 %; Neutrophils # (A) 6.10 10*3/uL (1.80-7.70); Neutrophils % (A) 83.3 %; Platelet Count 204 10*3/uL (140-440); RBC 2.82 10*6/uL (4.40-5.60); RDW 21.3 % (11.5-14.5); WBC 7.32 10*3/uL (4.50-10.00)
[2024-09-26 05:49] LABS: African American GFR (CKD) >90 (>60 ml/min/1.73 sqM); Anion Gap 8 mmol/L; Blood Urea Nitrogen 22 mg/dL (9-20); Calcium 7.8 mg/dL (8.4-10.2); Carbon Dioxide 25 mmol/L (22-30); Chloride 99 mmol/L (98-107); Glucose 87 mg/dL (74-99); Magnesium 1.7 mg/dL (1.6-2.3); Non-African American GFR(CKD) >90 (>60 ml/min/1.73 sqM); Potassium 3.4 mmol/L (3.5-5.1); Sodium 132 mmol/L (137-145)
[2024-09-26 05:50] LABS: ABG HCO3 29 mmol/L (21-25); ABG PCO2 34 mmHg (35-45); ABG PH 7.54 (7.35-7.45); ABG PO2 73 mmHg (83-108); ABG TCO2 30 mmol/L (19-24); Allen Test Performed? No
--- NOTE | 2024-09-26 07:18 | XR ---
EXAMINATION TYPE: XR chest 1V portable DATE OF EXAM: 09/26/2024 COMPARISON: 09/25/2024 CLINICAL INDICATION: Male, 49 years old with history of mechanically ventilated; TECHNIQUE: Single frontal view of the chest is obtained. FINDINGS: No change in the tracheostomy tube and right central venous catheter. There is no change in diffuse interstitial infiltrates, small right pleural effusion and retrocardiac consolidation There is no pneumothorax. The osseous structures are intact. Impression: No change in the acute bilateral cardiopulmonary process consistent with edema or pneumonia. [facility], , 09/26/2024 7:16 AM
[2024-09-26] MEDS: POTASSIUM CHLORIDE 20 MEQ in WATER FOR INJECTION 1 100ML.BAG IVPB STA (07:43)
[2024-09-26 08:49] LABS: Triglycerides 215.0 mg/dL (0.00-149.00)
--- NOTE | 2024-09-26 09:52 | P.PN ---
Subjective Progress Note Date: 09/26/24 Principal diagnosis: Pneumonia. This is a 49-year-old white male familiar to my service, history of paraplegia, home vent dependent, history of tracheostomy, patient had multiple admissions to the ICU for recurrent episodes of pneumonia and respiratory failure requiring ventilatory support. On his last admission patient was eventually discharged home on a home ventilator, and this was back on 08/04/2024. Patient was discharged home with a PICC line, patient was in the ER yesterday on 08/28 for abnormal labs mostly low potassium and low sodium discharged home however he cam e back today complaining of shortness of breath, has been ventilator dependent all along. Chest x-ray showed basically bibasilar opacities/atelectasis, doubt pneumonia, the findings in the left lower lobe are chronic. Patient did have previous history of pneumonia involving the left lower lobe and he had multiple bronchoscopies in the past. Bronchial cultures and sputum cultures have been positive in the past for mostly Pseudomonas aeruginosa. Patient was seen in the ER today, and he is already on cefepime for empiric coverage for potential left lower lobe pneumonia, patient had abnormal electrolytes with relatively low sodium low potassium, no leukocytosis, normal renal profile, blood pressure was soft, and he was given fluid boluses. Lactic acid was 2.1, D-dimer is normal, patient was admitted, and this consult was initiated. 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 Patient was seen today on 08/30/2024, patient continues to have intermittent episodes of fever with Tmax of 102, patient required norepinephrine and he remains on norepinephrine at 0.04 mcg/kg/min remains on LR at 130 cc/h remains on his home ventilator at tidal volume of 450 rate of 20 FiO2 45% and PEEP of 5. Seems comfortable, not in distress, his WBC is 3.5 hemoglobin 10.0 electrolytes are normal renal profile is normal potassium is borderline low. Patient remains on cefepime, vancomycin was added because of his previous history of MRSA, and is on cefepime for previous history of pseudomonal infection and now that the patient may be septic it is more of a reason to broaden the spectrum of antibiotics coverage with cefepime and vancomycin. Sputum cultures and blood cultures are pending. Patient does have history of pseudomonal and history of MRSA infections, and I discontinued his Zithromax today replace Zithromax with vancomycin. Viral screen is negative Legionella antigen is negative. Chest x- ray is relatively unchanged continues to show bibasilar opacities atelectasis/pneumonia. Progress note dated August 31, 2024. The patient is seen today in room 252. The patient was admitted a couple days ago, to the intensive care unit. The patient is currently on mechanical ventilator, actually his home ventilator. He is on volume assist-control, rate 20, tidal volume 450, FiO2 45% PEEP of 5. The patient is getting lactated Ringer's at 130 cc an hour, TPN at 91 cc an hour, norepinephrine at 8 mcg/min. Doppler of the left upper extremity was negative. He continues on Zerbaxa, and vancomycin. We will check a procalcitonin level. Cultures thus far are negative. He does have a previous history of methicillin-resistant Staph aureus infection, and pseudomonal infections. White count was 2.21, hemoglobin 9.3, hematocrit 32, platelet count 1 61,000. D-dimer was 5.78. Sodium 132, potassium 4.3, chlorides 106, CO2 21, BUN 18, creatinine 0.28. Glucose was 141. Calcium 7.8. C. difficile study was negative. Urine Legionella antigen was negative. Microbiologic studies are currently negative. Chest x-ray shows bibasilar airspace opacities, possibly consistent with pneumonia. 09/01/24 - The patient is seen today in room 252. Admitted to the hospital and the intensive care unit on 08/29/2024. The patient is currently on mechanical ventilator, his one from home. He is on volume assist control, rate of 20, tidal volume of 450, FiO2 45% and PEEP of 5. He currently has LR running at 50 cc/h, TPN at 91 cc/h, Zerbaxa and tobramycin. Chest Xray done this morning showed stable airspace opacities. Cultures are positive for pseudomonas aeruginosa, awaiting sensitivities. WBCs 2.69, Hgb 8.9, Hct 31.5, PLT 153, Na 135, K 3.4, Cl 109, HCO3 19, BUN 22, Cr 0.34, Phos 2.4. 09/02/24 - He is seen today in room 252. Admitted to the hospital and ICU on 08/29/24. He continues on mechanical ventilator, his one from home. He remaines on volume assist control, rate of 20, tidal volume of 450, FiO2 45% and PEEP of 5. He continues to have LR running at 50 cc/h, TPN at 91 cc/h, norepinephrine at 0.13 mcg/kg/min, Zebraxa and Tobramycin. Chest XRay this morning showed stable airspace opacities. Continue to await sensitivity of pseudomonas sputum culture. Lab work shows WBCs 3.64, Hgb 9.7, Hct 33.5, PLT 130, Na 133, K 3.9, bicarb 21, BUN 23, Cr 0.36, Ca 7.8, Mg 2.4, Albumin 2.3. 09/03/24 - He is seen in room 252. Admitted to the hospital and ICU on 08/29/24. He continues on mechanical ventilator, his one from home. He remaines on volume assist control, rate of 20, tidal volume of 450, FiO2 45% and PEEP of 5. He continues to have LR running at 50 cc/h, TPN at 91 cc/h, norepinephrine at 0.24 mcg/kg/min, Avycaz and Tobramycin. Zebraxa was discontinued as there was no reported sensitivity to it. Lab work shows WBCs 9.40, Hgb 8.8, Hct 30.6, PLT 100, Na 130, K 3.6, bicarb 23, BUN 25, Cr 0.51, Ca 7.8, Ionized Ca 4.6, Phos 3.3, Mg 2.1, TSH 2.710 and random cortisol 13.1. 09/04/24 - He is seen in room 252. Admitted to the hospital and ICU on 08/29/24. He continues on mechanical ventilator, his one from home. He remaines on volume assist control, rate of 20, tidal volume of 450, FiO2 45% and PEEP of 5. He continues to have LR running at 50 cc/h, TPN at 91 cc/h, norepinephrine at 0.24 mcg/kg/min, Avycaz and Tobramycin. Lab work shows sodium 133, potassium 3.5, bicarb 24, BUN 27, creatinine 0.47, calcium 7.9, ionized calcium 4.6, magnesium 1.9, phosphorus 3.0, total bilirubin 1.7, AST 57, ALT 45, alkaline phosphatase 99. Progress note dated September 05, 2024. 49-year-old male well-known to our service. He is seen today in room 252. He continues on volume assist-control, rate 20, tidal 450, FiO2 45%, PEEP of 5. The patient has refused blood gases. Currently, he is getting TPN at 65 cc an hour, norepinephrine at 1 mcg/min, LR at 50 cc/h. Clinically, the patient is doing well. His chest x-ray remains about the same. Yesterday he was on a higher dose of norepinephrine, and also was on vasopressin. Both have been weaned off. Current labs include a sodium 136, potassium 4.1, chlorides 101, CO2 28, BUN 30, creatinine 0.37. Glucose 153. Albumin is 2.2. Previous sputum, from August 29 with positive for Pseudomonas aeruginosa. Chest x-ray is largely unchanged. Progress note dated September 06, 2024. 49-year-old male again seen today in the intensive care unit, room 252. He remains on mechanical ventilator, actually his home ventilator, with settings of volume assist-control, rate 20, tidal volume 450, FiO2 45%, PEEP of 5. No blood gases today. The patient has been refusing. He is getting lactated Ringer's at 50 cc an hour, TPN at 65 cc an hour. He continues on the same antibiotics. White count 5.21, hemoglobin 7.9, hematocrit 27.5, and platelet count 64,000. Sodium 141, potassium 3.5, chlorides 102, CO2 32, BUN 25, and creatinine 0.35. Glucose is 152. Calcium is 8. Albumin is 2.1. Chest x-ray is largely unchanged. Patient was seen today on 09/16/2024, patient is basically about the same. Hardly any improvement noted in the last few weeks since admission, patient remains intubated, mechanically ventilated, same ventilator settings, assist-control rate of 20 tidal volume 450 FiO2 60% and PEEP of 8 ABG was not done today, no easy access, attempted to place arterial lines in this patient, but could not pass a wire although the arteries including femoral artery and left brachial artery were easily cannulated. No further attempts made for arterial access. Patient remains on norepinephrine at 0.13 mcg/kg/min still on TPN at 75 cc/h still on Zerbaxa and vancomycin chest x-ray showed worsening today of bilateral infiltrates possibly some component of fluid overload and I recommended Lasix 20 mg IV push twice daily. Patient seems to be quite swollen and edematous. WBC count is 5.4 hemoglobin 7.6 electrolytes showed sodium of 146 potassium 4.1 BUN 20 creatinine 0.47 Patient was seen today on 09/17/2024, patient seems to be deteriorating steadily over the last 24 hours, he is developing profound hypotension requiring pressors in the form of Levophed at 0.4 mcg/kg/min he is also on vasopressin at 0.04 units/min he is on TPN at 75 cc/h hemoglobin is noted to be low at 6.9, patient has positive yeast in the blood/fungemia he is on fluconazole, this is being addressed by infectious disease on the case. Earlier ABG showed a pO2 of 77 pCO2 88 pH of 7.13, Vent settings were adjusted with increasing the rate to 36. He is now on tidal volume of 350 FiO2 100% PEEP is 10 and rate is 36. Another ABG is pending. But clearly patient is taking a downhill clinical course. Patient is quite septic, I will likely change his central line, and place a new central line in this patient today and remove the old central line/PICC line. Patient will receive a unit of packed RBCs for hemoglobin of 6.9. Considering the change in his overall clinical status, discussed his condition with son, would like to keep his dad as a full code, he is very well aware of the poor prognostic picture and how ill his dad is. Would like to keep him a full code. WBC count today is 20.03 hemoglobin 8.5, basic metabolic profile is normal BUN is 25 creatinine 0.4 total protein is 6.9 albumin is 1.9. Patient was seen today on 09/18/24, remains in the ICU, intubated and mechanically ventilated. Patient is still requiring assist-control rate of maximal ventilatory support with rate of 36 tidal volume increased today up to 400 FiO2 decreased from 100% to 70% PEEP remains at 12. Earlier ABG before changes were made at the FiO2 had been on tidal volume showed a pO2 of 77 pCO2 68 pH of 7.20. Patient is still requiring norepinephrine and I have been titrating the norepinephrine earlier this morning he is down to 0.18 from 0.46 yesterday micrograms per kilo per minute vasopressin is still at 0.04 units/min patient is on propofol at 50 mcg/kg/min Lasix drip at 20 mg/h and TPN at 75 cc/h. I am also treating the patient with vancomycin, Zerbaxa, and Eraxis was added to replace fluconazole yesterday by infectious disease specially with his positive blood cultures for Bella. Urine output is improving with the Lasix drip, he did not improve much with 1 dose of Lasix 60 mg IV push. Remains on Solu-Cortef at 100 mg IV push every 8 hours patient is in positive fluid balance about 6 L hence I decided to go with Lasix drip today. Labs today showed slight improvement in his WBC count down to 14.9 hemoglobin is 7.6, electrolytes are abnormal with a potassium of 6.1 BUN is 45 creatinine 0.82 chest x-ray continues show bilateral interstitial edema/infiltrates, could be cardiogenic or noncardiogenic pulmonary edema I believe it is mostly cardiogenic/related to fluid overload as he received significant fluids yesterday for low blood pressure. And he was not making much urine in the last 24 hours. Hence Lasix drip was started today. Patient was seen today on 09/19/2024, remains in the ICU, remains intubated and mechanically ventilated. Patient is on assist-control rate of 36 tidal volume 400 FiO2 65% and PEEP of 12. His ABG showed a pO2 of 142 pCO2 52 pH of 7.28, hence cut down his FiO2 down to 50%. The PEEP at 12. Patient remains hemodyn amically unstable, remains on norepinephrine at 0.08 mcg/kg/min, his vasopressin has been discontinued. TPN is at 75 cc/h. Remains on Lasix drip/infusion at 20 mg/h. He is on propofol at 50 mcg/kg/min remains on Solu-Cortef 50 mg every 8, Eraxis, Zerbaxa, vancomycin. Urine output is marginal at about 10 to 20 cc/h in spite of Lasix drip. Lovenox will be resumed today at 80 mg subcu twice daily. Patient is sedated, his overall clinical status is showing slight improvement compared to the clinical status couple of days ago. Chest x-ray continues to show evidence of interstitial edema although the possibility of ARDS is not entirely ruled out considering his overall septic picture. CBC is about the same with WBC of 7.7 hemoglobin 7.1. Platelets are 128,000. Basic metabolic profile is normal potassium is down to 5.2 BUN is 67 creatinine is slightly higher today 1.13. Blood sugar is 358. Patient was seen today on 09/20/2024, remains in the ICU intubated mechanically ventilated. On assist-control rate of 36 tidal volume 400 FiO2 50% PEEP of 12, no ABG done today, however his O2 saturation is in the high 90s about 98%. Patient had a low hemoglobin today and he will need a unit of blood/packed RBCs for low hemoglobin. No active bleeding noted, Hemoccult stools will be done t lizette. Patient remains on Eraxis and Zerbaxa, his vancomycin was discontinued remains on lower dose of Solu-Cortef 50 mg IV push every 12 hours. Continues to have poor urine output and his renal functioning is getting a bit worse. Nephrology was consulted, patient received initially significant amount of fluids for his presentation of sepsis, and he remained oliguric in spite of fluid boluses. Then he was placed on Lasix drip which initially was working fine, now that urine output is rather marginal and spite of Lasix drip at 20 mg an hour. I am recommending a trial of albumin followed by 80 mg of Lasix IV push. And hopefully his urine output will pickling grader with the albumin and with the blood transfusion which is scheduled to be done soon. Vancomycin has been discontinued. Chest x-ray continues to show evidence of interstitial edema. Labs are reviewed his potassium is 5 bicarb is 20 BUN is 83 creatinine 1.49 platelets are 105 hemoglobin 6.3. Progress note dated September 21, 2024. The patient remains on volume assist-control, rate 36, tidal volume 400, FiO2 50%, PEEP of 12. Blood gases were not obtained. He continues on TPN at 75 cc an hour, propofol at 50 mcg/kg/min, saline at 10 cc an hour, and norepinephrine is currently on hold. Antibiotic douglas, he continues on vancomycin, and Eraxis. White count is 6.9, hemoglobin 7.6, hematocrit 24.3, and platelet count 115,000. Sodium 137, potassium 5.1, chlorides 103, CO2 18, anion gap 16, BUN 99, creatinine 1.58. Glucose is 228. Calcium 8.1, phosphorus 5.4, magnesium 2.5. Culture data shows evidence of Pseudomonas aeruginosa back on August 29, Pseudomonas in the bronchial washings on September 07, and blood cultures positive, September 18, currently pending. Chest x-ray is largely unchanged, shows patchy diffuse airspace opacities, with a small right-sided pleural effusion. Progress note dated September 22, 2024. The patient is seen today in room 252. He remains on volume assist-control. Settings include volume assist-control 36, tidal volume 400, FiO2 50%, PEEP of 12. He is getting propofol at 50 mcg/kg/min, norepinephrine at 3 mcg/min, and TPN at 75 cc an hour. He is having hemodialysis today. The goal is removal of 1 to 2 L of fluid. He continues on Eraxis. We were able to place a right radial arterial line. We will repeat a blood gas, after hemodialysis. Current laboratory data includes a white count 7.4, hemoglobin 7.3, hematocrit 23.4, and a platelet count of 114,000. Sodium 134, potassium 5.4, chlorides 104, CO2 15, anion gap 15, BUN 110, creatinine 1.79. Glucose is 153. Calcium is 8.3. Previous blood in sputum sampling, showed evidence of Pseudomonas aeruginosa. The patient also has previous blood culture showing evidence of Bella species. Chest x-ray today is largely unchanged. Progress note dated September 23, 2024. 49-year-old male seen today in room 252. He remains on mechanical ventilation. He is on volume assist-control, rate 36, tidal volume 400, FiO2 40%, PEEP of 12. Blood gases show pO2 100, pCO2 44, pH is 7.30. Patient continues on norepinephrine at 5.6 mcg/min, propofol at 50 mcg/kg/min, TPN at 33 cc an hour. He is getting saline at 10 cc an hour. He had hemodialysis yesterday, September 22, and 1 L of fluid was removed. He continues on Eraxis, as per infectious diseases. White count is 9.0, hemoglobin 7.7, hematocrit 24, and platelet count is 155,000. Sodium 132, potassium 4.5, chlorides 96, CO2 20, anion gap 16, BUN 80, and creatinine 1.69. Glucose is 145. Calcium 8.5. Most recent blood cultures, on September 18, were positive for Bella. Today's chest x-ray is largely unchanged. Progress note dated September 24, 2024. 49-year-old male seen today in room 252. The patient continues on life support, IV volume assist-control, rate 36, tidal volume 400, FiO2 40%, PEEP of 12. Blood gases show pO2 100, pCO2 42, pH is 7.39. The patient is getting propofol at 15 mcg/kg/min, norepinephrine at 4 mcg/min, TPN at 33 cc an hour, and saline at 10 cc an hour. The patient's hemoglobin is 7. He continues on Eraxis. The patient static lung compliance is 23.5 mL/cm water. He has very stiff lungs. White count is 6.7, hemoglobin 7, hematocrit 22.4, platelet count 158,000. Sodium 130, potassium 4, chlorides 95, CO2 22, anion gap 13, BUN 58, creatinine 1.52. Glucose is 114. Calcium 8.3. Magnesium 1.7. No recent new culture data. Chest x-ray is about the same as it was a day before. It shows right basilar airspace opacities, with a small right-sided pleural effusion. There was some interstitial prominence. Progress note dated September 25, 2024. 49-year-old male seen today in room 252. He remains on volume assist-control, rate 36, tidal volume 400, FiO2 30%, and PEEP of 12, to be dropped to a PEEP of 8. Blood gases show pO2 of 82, pCO2 36, pH of 7.49. The patient is on TPN at 33 cc an hour, propofol at 30 mcg/kg/min, and norepinephrine at about 3 mcg/min. He is having hemodialysis today. Goal is to remove 2 to 3 L if tolerated. The patient continues on Eraxis. White count 7.5, hemoglobin 7.6, hematocrit 23.9, and platelet count of 194,000. Sodium 129, potassium 3.5, chloride 94, CO2 24, anion gap normal, BUN 35, creatinine 1.06. Glucose is 115. Albumin is 2.5. Recent blood cultures are positive for Bella. Chest x-ray is largely u nchanged. There is right basilar airspace disease, with a small right-sided pleural effusion. Progress note dated September 26, 2024. 49-year-old male seen today in room 252. He remains on volume assist-control, rate 36, tidal volume 400, FiO2 30%, PEEP of 8. Blood gases show pO2 of 73, a PCO2 of 34, and a pH of 7.54. He continues on propofol at 20 mcg/kg/min, norepinephrine at approximately 2 mcg/min, TPN at 33 cc an hour. The patient does continue on Eraxis, for fungemia. Current labs showed a white count of 7.32, hemoglobin 7.5, hematocrit 23.7, and a normal platelet count. Sodium 132, potassium 3.4, chloride 79, CO2 25, anion gap 8, BUN 22, and creatinine 0.87. Chest x-ray shows bilateral infiltrates, consistent with either pneumonia, or fluid overload. The chest x-ray is largely unchanged from the prior x-ray. Objective - Vital Signs Vital signs: Vital Signs Temp 98.4 F 09/26/24 04:00 Pulse 70 09/26/24 07:54 Resp 35 H 09/26/24 07:00 BP 103/52 09/26/24 07:00 Pulse Ox 94 L 09/26/24 07:00 FiO2 30 09/26/24 07:59 Intake & Output 09/25/24 09/26/24 09/26/24 18:59 06:59 18:59 Intake Total 1263.582 749.292 210.602 Output Total 6691 830 20 Balance -5427.418 -80.708 190.602 Weight 111.1 kg 107.4 kg Intake: IV 555 582 147 0.9 KVO 120 120 30 Pressure Bag, CVP and ART 72 66 18 TPN 363 396 99 Intake, IV Titration 275.582 167.292 63.602 Amount Norepinephrine 8 mg In 100.300 76.093 Sodium Chloride 0.9% 250 ml @ 0.03 MCG/KG/MIN 6. 513 mls/hr IV .Q24H ANNIE Rx#:[id number] propofoL 1,000 mg In 175.282 91.199 63.602 Empty Bag 1 bag @ 50 MCG/ KG/MIN 32.34 mls/hr IV . Q3H6M ANNIE Rx#:[id number] TPN/PPN 33 TPN 33 Hemodialysis 400 Output: Drainage 2250 Medial Abdomen 2250 Urine 41 30 20 Stool 800 Hemodialysis 2400 Hemodialysis Net Amount 1999 Other: Voiding Method Indwelling Catheter Indwelling Catheter Indwelling Catheter ABP, PAP, CO, CI - Last Documented Arterial Blood Pressure 50/42 - Exam No acute distress, currently connected to the ventilator. He has a tracheostomy tube in place. HEENT examination is grossly unremarkable. Mucous membranes are moist. No oral lesions. Neck supple. Full range of motion. No adenopathy thyromegaly or neck vein distention. Cardiovascular examination reveals regular rhythm rate. S1-S2 normal. No S3 or S4. No discernible murmur noted. Lungs reveal scattered rhonchi and crackles. No wheezes. Breath sounds equal bilaterally. Abdomen reveals an enterocutaneous fistula, normal bowel sounds. No tenderness. No masses. Extremities are intact. No cyanosis clubbing or edema. Right below the knee amputation. Has a right radial arterial line. Skin is without rash or lesion. Neurologic examination is brief but nonfocal. He does have significant muscle atrophy, and contractures. He has a right below the knee amputation. - Labs CBC & Chem 7: 09/26/24 05:00 09/26/24 05:00 Labs: Abnormal Lab Results - Last 24 Hours (Table) 09/25/24 09/25/24 09/26/24 Range/Units 17:48 18:30 00:13 RBC (4.40-5.60) 10*6/uL Hgb (13.0-17.0) g/dL Hct (39.6-50.0) % MCH (27.0-32.0) pg MCHC (32.0-37.0) g/dL Immature Gran # (0.00-0.04) 10*3/uL Lymphocytes # (0.90-5.00) 10*3/uL ABG pH (7.35-7.45) ABG pCO2 (35-45) mmHg ABG pO2 (83-108) mmHg ABG HCO3 (21-25) mmol/L ABG Total CO2 (19-24) mmol/L Sodium (137-145) mmol/L Potassium 3.4 L (3.5-5.1) mmol/L BUN (9-20) mg/dL POC Glucose (mg/dL) 127 H 117 H (70-110) mg/dL Calcium (8.4-10.2) mg/dL Triglycerides (0.00-149.00) mg/dL 09/26/24 09/26/24 09/26/24 Range/Units 05:00 05:00 05:00 RBC 2.82 L (4.40-5.60) 10*6/uL Hgb 7.5 L (13.0-17.0) g/dL Hct 23.7 L (39.6-50.0) % MCH 26.6 L (27.0-32.0) pg MCHC 31.6 L (32.0-37.0) g/dL Immature Gran # 0.05 H (0.00-0.04) 10*3/uL Lymphocytes # 0.76 L (0.90-5.00) 10*3/uL ABG pH (7.35-7.45) ABG pCO2 (35-45) mmHg ABG pO2 (83-108) mmHg ABG HCO3 (21-25) mmol/L ABG Total CO2 (19-24) mmol/L Sodium 132 L (137-145) mmol/L Potassium 3.4 L (3.5-5.1) mmol/L BUN 22 H (9-20) mg/dL POC Glucose (mg/dL) (70-110) mg/dL Calcium 7.8 L (8.4-10.2) mg/dL Triglycerides 215.00 H (0.00-149.00) mg/dL 09/26/24 Range/Units 05:25 RBC (4.40-5.60) 10*6/uL Hgb (13.0-17.0) g/dL Hct (39.6-50.0) % MCH (27.0-32.0) pg MCHC (32.0-37.0) g/dL Immature Gran # (0.00-0.04) 10*3/uL Lymphocytes # (0.90-5.00) 10*3/uL ABG pH 7.54 H (7.35-7.45) ABG pCO2 34 L (35-45) mmHg ABG pO2 73 L (83-108) mmHg ABG HCO3 29 H (21-25) mmol/L ABG Total CO2 30 H (19-24) mmol/L Sodium (137-145) mmol/L Potassium (3.5-5.1) mmol/L BUN (9-20) mg/dL POC Glucose (mg/dL) (70-110) mg/dL Calcium (8.4-10.2) mg/dL Triglycerides (0.00-149.00) mg/dL Microbiology - Last 24 Hours (Table) 09/22/24 18:46 Blood Culture - Preliminary Blood Assessment and Plan Assessment: Septic shock, likely secondary to Pseudomonas pneumonia. Probable fungemia, currently on Eraxis. Chronic hypoxemic and hypercapnic respiratory failure, ventilator dependent, on a home ventilator, S/P tracheostomy. Left lower lobe atelectasis, possible pneumonia, with pseudomonal infection. History of severe tracheal stenosis, S/P tracheostomy. History of recurrent pneumonia, involving the left lower lobe. Tracheobronchomalacia. History of DVT. History of CVA. History of right below-knee amputation. Previous history of asystole/cardiac arrest, 2021. History of Crohn's disease, S/P enterocutaneous fistula, diverting ileostomy. Plan: Plan dated August 31, 2024. The patient is seen today in room 252. The patient's weight had on fluids, and the lactated Ringer's is cut back to 40 cc an hour. The patient will get 1 dose of Lasix IV push. Ventilator settings are noted. No blood gases today. It was apparently refused by the patient. Doppler of the left upper extremity was negative for DVT. Will check a procalcitonin level. The patient continues on norepinephrine at 8 mcg/min. He is getting TPN at 91 cc an hour. We will continue to follow make recommendations along the way. Labs, x-rays, and all medications are reviewed. Prognosis is certainly guarded. Dictation was produced using [employer] dictation software. Please excuse any grammatical, word or spelling errors. Plan dated September 05, 2024. The patient is seen today in room 252. He is connected to his home mechanical ventilator. Settings of the same and include volume assist-control, rate 20, tidal volume 450, FiO2 45%, PEEP of 5. The patient is getting TPN at 65 cc an hour, norepinephrine has been weaned down to 1 mcg/min. He is getting lactated Ringer's at 50 cc an hour. He continues on Avycaz and tobramycin. We will continue to follow make recommendations. The patient also continues on hydrocortisone, for relative adrenal insufficiency. Prognosis is certainly guarded. We will continue to follow. Dictation was produced using [employer] software. Please excuse any grammatical, word or spelling errors. Plan dated September 06, 2024. The patient is seen today in room 252. He continues on mechanical ventilation. The patient is having increased secretions. Will add a scopolamine patch. He continues on Avycaz, and tobramycin. In addition, he continues on TPN at 65 cc an hour, and lactated Ringer's at 50 cc an hour. All labs, x-rays, and medications are reviewed. Chest x-ray is unchanged. We will continue to follow make recommendations. Prognosis is guarded. Dictation was produced using [employer] software. Please excuse any grammatical, word or spelling errors. Plan dated September 21, 2024. The patient is again seen today in room 252, with presumed ongoing sepsis. The patient has norepinephrine on standby, for blood pressure support, and recently was maxed out on multiple vasopressors. Currently, the patient continues on Eraxis, and vancomycin. The patient also continues on TPN at 75 cc an hour, propofol at 50 mcg/kg/min. All labs, x-rays, medications are reviewed. The patient's overall prognosis remains very poor. We will continue to follow. He remains a full code. Dictation was produced using [employer] software. Please excuse any grammatical, word or spelling errors. Plan dated September 22, 2024. The patient was seen to get her up to 52. We were able to place a right radial art line in the patient. There was good blood return from the arterial line, although the waveform was dampened. The patient continues on appropriate medications, including propofol at 50 mcg/kg/min, norepinephrine at 3 mcg/min. The patient is also getting TPN at 75 cc an hour. He is receiving hemodialysis today. He continues on Eraxis. After hemodialysis, the patient will have a arterial blood gas. Additional recommendations and suggestions are forthcoming. Prognosis is guarded. All labs, x-rays, and medications are reviewed. We will continue to follow the patient, make recommendations. Dictation was produced using [employer] dictation software. Please excuse any grammatical, word or spelling errors. Plan dated September 23, 2024. The patient is again seen today in room 252. The patient's blood gases show pO2 100, pCO2 44, pH of 7.31. Patient continues on norepinephrine at 5.6 mcg/min, propofol at 50 mcg/kg/min. The patient is getting TPN at 33 cc an hour. The patient continues on Eraxis. He had hemodialysis yesterday. All labs, x-rays, and medications are reviewed. The patient remains a full code. Will continue to follow the patient, make recommendations along the way. Prognosis is guarded. Dictation was produced using [employer] software. Please excuse any grammatical, word or spelling errors. Plan dated September 24, 2024. According to the nurses, the patient had an uneventful night. He continues on volume assist-control, with a rate of 36, tidal volume 400, FiO2 40%, PEEP of 12. Blood gases are adequate with a pO2 of 100, pCO2 of 42, pH of 7.39. The patient continues on sedation with propofol at 50 mcg/kg/min. For his lower blood pressure, he is on norepinephrine at 4 mcg/min. He continues on parenteral nutrition, with TPN at 33 cc an hour. He also continues on Eraxis for fungemia. Hemoglobin is 7. No transfusion at this time. All labs, x-rays, and medications are reviewed. We will continue to follow the patient, make recommendations. The patient's overall prognosis remains poor. Dictation was produced using [employer] software. Please excuse any grammatical, word or spelling errors. Plan dated September 25, 2024. The patient is seen today in room 252. He continues on Eraxis. The patient continues on mechanical ventilation. Labs, x-rays, and medications are reviewed. We will continue to follow the patient, make recommendations. He is getting TPN at 33 cc an hour, and propofol at 30 mcg/kg/min. He continues on norepinephrine at about 3 mcg/min. He is having hemodialysis today. The goal is to remove somewhere between 2 to 3 L of fluid, pending his blood pressure response. The patient will be dropped from 12 cm of water down to 8 cm of water. Blood gases have been reviewed. All labs, x-rays, and medications have been reviewed. We will continue to follow. Prognosis is guarded. Dictation was produced using [employer] software. Please excuse any grammatical, word or spelling errors. Plan dated September 26, 2024. The patient is seen today, in room 252. The patient remains on mechanical ventilation. Blood gases are reasonable. All labs, x-rays, and medications are reviewed. The patient continues on propofol at 20 mcg/kg/min, and norepinephrine at roughly 2 mcg/min. We will continue to follow make recommendations. He is being nursed with TPN at 33 cc an hour. 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 Prognosis is guarded. Dictation was produced using [employer] software. Please excuse any grammatical, word or spelling errors. Time with Patient: Greater than 30
[2024-09-26 11:42] LABS: Glucose,Whole Blood 92 mg/dL (70-110)
--- NOTE | 2024-09-26 12:00 | P.PN ---
Subjective Progress Note Date: 09/26/24 Patient is seen for follow-up for acute kidney injury. Started hemodialysis on 09/22/2024 for volume overload and worsening acute kidney injury with oliguria. Awake on vent, no new complaints. Patient is on the vent he is awake. Examination of the heart S1 and S2 Tracheostomy noted Examination of the lungs bilateral breath sounds are heard Abdomen is distended Examination of lower extremities shows right BKA and significant edema in the left leg as well as scrotal edema noted Objective - Vital Signs Vital signs: Vital Signs Temp 98.4 F 09/26/24 04:00 Pulse 70 09/26/24 07:54 Resp 35 H 09/26/24 07:00 BP 103/52 09/26/24 07:00 Pulse Ox 94 L 09/26/24 07:00 FiO2 30 09/26/24 07:59 Intake & Output 09/25/24 09/26/24 09/26/24 18:59 06:59 18:59 Intake Total 1263.582 749.292 210.602 Output Total 6691 830 20 Balance -5427.418 -80.708 190.602 Weight 111.1 kg 107.4 kg Intake: IV 555 582 147 0.9 KVO 120 120 30 Pressure Bag, CVP and ART 72 66 18 TPN 363 396 99 Intake, IV Titration 275.582 167.292 63.602 Amount Norepinephrine 8 mg In 100.300 76.093 Sodium Chloride 0.9% 250 ml @ 0.03 MCG/KG/MIN 6. 513 mls/hr IV .Q24H ANNIE Rx#:[id number] propofoL 1,000 mg In 175.282 91.199 63.602 Empty Bag 1 bag @ 50 MCG/ KG/MIN 32.34 mls/hr IV . Q3H6M ANNIE Rx#:[id number] TPN/PPN 33 TPN 33 Hemodialysis 400 Output: Drainage 2250 Medial Abdomen 2250 Urine 41 30 20 Stool 800 Hemodialysis 2400 Hemodialysis Net Amount 1999 Other: Voiding Method Indwelling Catheter Indwelling Catheter Indwelling Catheter ABP, PAP, CO, CI - Last Documented Arterial Blood Pressure 50/42 - Labs CBC & Chem 7: 09/26/24 05:00 09/26/24 05:00 Labs: Abnormal Lab Results - Last 24 Hours (Table) 09/25/24 09/25/2425 Range/Units 17:48 18:30 00:13 RBC (4.40-5.60) 10*6/uL Hgb (13.0-17.0) g/dL Hct (39.6-50.0) % MCH (27.0-32.0) pg MCHC (32.0-37.0) g/dL Immature Gran # (0.00-0.04) 10*3/uL Lymphocytes # (0.90-5.00) 10*3/uL ABG pH (7.35-7.45) ABG pCO2 (35-45) mmHg ABG pO2 (83-108) mmHg ABG HCO3 (21-25) mmol/L ABG Total CO2 (19-24) mmol/L Sodium (137-145) mmol/L Potassium 3.4 L (3.5-5.1) mmol/L BUN (9-20) mg/dL POC Glucose (mg/dL) 127 H 117 H (70-110) mg/dL Calcium (8.4-10.2) mg/dL Triglycerides (0.00-149.00) mg/dL 09/26/24 09/26/24 09/26/24 Range/Units 05:00 05:00 05:00 RBC 2.82 L (4.40-5.60) 10*6/uL Hgb 7.5 L (13.0-17.0) g/dL Hct 23.7 L (39.6-50.0) % MCH 26.6 L (27.0-32.0) pg MCHC 31.6 L (32.0-37.0) g/dL Immature Gran # 0.05 H (0.00-0.04) 10*3/uL Lymphocytes # 0.76 L (0.90-5.00) 10*3/uL ABG pH (7.35-7.45) ABG pCO2 (35-45) mmHg ABG pO2 (83-108) mmHg ABG HCO3 (21-25) mmol/L ABG Total CO2 (19-24) mmol/L Sodium 132 L (137-145) mmol/L Potassium 3.4 L (3.5-5.1) mmol/L BUN 22 H (9-20) mg/dL POC Glucose (mg/dL) (70-110) mg/dL Calcium 7.8 L (8.4-10.2) mg/dL Triglycerides 215.00 H (0.00-149.00) mg/dL 09/26/24 Range/Units 05:25 RBC (4.40-5.60) 10*6/uL Hgb (13.0-17.0) g/dL Hct (39.6-50.0) % MCH (27.0-32.0) pg MCHC (32.0-37.0) g/dL Immature Gran # (0.00-0.04) 10*3/uL Lymphocytes # (0.90-5.00) 10*3/uL ABG pH 7.54 H (7.35-7.45) ABG pCO2 34 L (35-45) mmHg ABG pO2 73 L (83-108) mmHg ABG HCO3 29 H (21-25) mmol/L ABG Total CO2 30 H (19-24) mmol/L Sodium (137-145) mmol/L Potassium (3.5-5.1) mmol/L BUN (9-20) mg/dL POC Glucose (mg/dL) (70-110) mg/dL Calcium (8.4-10.2) mg/dL Triglycerides (0.00-149.00) mg/dL Microbiology - Last 24 Hours (Table) 09/22/24 18:46 Blood Culture - Preliminary Blood Assessment and Plan Assessment: 1. Acute kidney injury secondary to ATN secondary to septic shock and vancomycin toxicity. Vancomycin level 49.3 on 09/19/2024. Patient remains oliguric with significant volume overload noted. Started hemodialysis on 09/22/2024. Receiving daily treatments for volume overload 2. Septic shock secondary to pneumonia and fungemia. 3. Acute blood loss anemia s/p PRBC 4. Volume overload. 5. Chronic hypoxic and hypercapnic respiratory failure, home ventilator dependent. 6. History of cardiac arrest. 8. Status post right BKA. Plan: Dialysis today due to oliguria and fluid overload, continue to increase UF as tolerated. Continue antibiotics and antifungal treatment as per ID Continue with TPN Monitor electrolytes.
[2024-09-26 13:05] LABS: Glucose,Whole Blood 96 mg/dL (70-110)
--- NOTE | 2024-09-26 14:48 | P.PN ---
Progress Note - Text Progress Note Date: 09/26/24 Chief Complaint: Short of breath 49-year-old patient, follows with Dr. Murcia History of paraplegia, home vent at night, tracheostomy multiple admissions to the ICU for recurrent pneumonia. Patient's previous bronchial cultures been positive for Pseudomonas. He was discharged recently on IV cefepime. Also has a history of Crohn's disease with previous colectomy diverting ileostomy. History of DVT for which patient is on subcu Lovenox. Also had drug-resistant MRSA Pseudomonas. Patient currently does not have areas significant trach secretions. He has continues TPN. Has a right BKA. He does have slight movement in the right hand. Able to follow commands by nodding his head. Answering questions. He is scared by his elder son open. I was also the DPOA. August 30: Overnight patient started having more secretions through the tracheostomy. Vancomycin was added. Also blood pressure running low patient was put on Levophed drip. Otherwise sinus rhythm. Patient remains on the ventilator. Will also send off stool for C. difficile. Also patient IV cefepime. Getting TPN. August 31: ICU. Patient had positive fluid balance. Was given IV Lasix earlier. Remains on Levophed. Spiking fevers. Getting TPN. Stool negative for C. difficile. Patient is growing MDRO Pseudomonas aeruginosa. ID is ordered IV Zerbaxa. Which is currently not available. Patient's friend is visiting him in the ICU. Light trach secretion September 01: ICU. On the ventilator. FiO2 45%. PEEP of 5. Continues to have light trach secretions. Sputum cultures again growing Pseudomonas. Zerbaxa was obtained and resumed. Blood pressure running low. On Levophed. Patient's younger son at the bedside. Colostomy working fine. Has been spiking fevers. Cooling blanket. Ice packs. September 02: ICU. Ventilator FiO2 45%. PEEP of 5. Continues to have some trach secretions. IV Zerbaxa IV tobramycin. TPN lipids to continue. Also Levophed. Patient started cooling blankets since yesterday for temperatures. Along with the nurse speech therapy records were reviewed from last few admissions. Patient with multiple MBS and bedside swallow eval. No trouble with swallowing. Patient put on a chopped diet. Thin liquids. Patient did spike a fever of 101.7 earlier today. Low ionized calcium. IV gluconate given. September 03: ICU. On ventilator FiO2 45%. PEEP of 5. Mild trach secretions. Getting IV TPN lipids. IV tobramycin. Zerbaxa was substituted to Avycaz. By ID. No fever per se since yesterday. For blood pressure patient is also on Levophed and vasopressin. September 04: ICU. On ventilator FiO2 45%. PEEP of 5. Clear trach secretions. Getting IV TPN lipids. IV tobramycin. And IV Avycaz. Remains afebrile.. On Levophed and vasopressin. Awake. 09/06/2024 Patient is seen and evaluated in ICU; remains on mechanical ventilator, actually his home ventilator, with settings of volume assist-control, rate 20, tidal volume 450, FiO2 45%, PEEP of 5. - patient has been refusing blood; no ABGs to. He is getting lactated Ringer's at 50 cc an hour, TPN at 65 cc an hour. - patient remains on the same antibiotics. - Labs reviewed which reveal white count 5.21, hemoglobin 7.9, hematocrit 27.5, and platelet count 64,000. Sodium 141, potassium 3.5, chlorides 102, CO2 32, BUN 25, and creatinine 0.35. Glucose is 152. Calcium is 8. Albumin is 2.1. -Chest x-ray is largely unchanged. Critical care managing mechanical ventilation; recommending to add scopolamine patch for increased secretion -Patient remains on Avycaz and tobramycin - Continue with current TPN 09/07 Patient remains in the ICU lethargic. He is s/p tracheostomy Overnight he was more hypoxic they have to increase PEEP to 8. Also has a lot of secretions when needed for secretions suctioning to try to become apneic per Staff. Patient currently receiving Avycaz and tobramycin. on TPN also 09/08 Patient remains in the ICU awake and alert status post tracheostomy. He has contractures of both upper and lower extremities He is complaining from pain in his lungs. He is status post flexible bronchoscopy and bronchoalveolar lavage yesterday. He has previous sputum culture positive for Pseudomonas currently covered with ceftazidime and tobramycin. He is also on Lovenox 90 mg 09/09 Patient still in the ICU on mechanical ventilation via tracheostomy. PEEP is 8.0 as is yesterday Also he spiked little fever to 100.7. IV vancomycin is added to tobramycin and ceftazidime He is getting also bronchoscopy follow-up culture results 09/10 Patient feels clinically the same, he still getting breathing via mechanical ventilation through his tracheostomy with PEEP of 8. Patient feels he is required suctioning through his tracheostomy tube. He denies chest pain or pain anywhere else he can communicate by head signs and gestures. Hemodynamically stable and afebrile hemoglobin 7.4 platelet count 73 Glucose is controlled potassium 3.3 He remains on broad-spectrum antibiotic Rocephin at this time tobramycin and IV vancomycin added yesterday because he had low-grade fever. He is getting TPN. IV fluid Ringer lactate was stopped and patient was started on IV Lasix 20 mg 3 times a day continue with therapeutic dose of Lovenox as well 09/11 Patient remains in the ICU Remains on mechanical ventilation via tracheostomy He status post bronchoalveolar lavage 2 days ago, culture is growing Pseudomonas aeruginosa and corynebacterium Patient remains on broad-spectrum antibiotics with IV vancomycin, tobramycin, ceftazidime On IV Lasix also is on therapeutic dose of Lovenox 90 mg twice daily No IV fluids 09/12 Patient remains in the ICU Clinically close to what he was over the last 2 days still getting oxygen via his tracheostomy He remains on broad-spectrum antibiotic with Ceftin this time and IV vancomycin. Also he is on IV Lasix 20 mg and therapeutic dose of Lovenox. 09/13 Patient remains in the ICU on mechanical ventilation via tracheostomy Patient looks better today, he breathing better Less secretion Fentanyl patch increased 09/14. Patient seen and examined. Patient continues to be on mechanical ventilation via trach mask. Currently on TPN. Currently on IV Zerbaxa and vancomycin 09/15. Patient seen and examined.Vital signs done showed the patient overnight, heart rate 106, blood pressure 107/40, currently on ventilation. Labs reviewed showed WBC 7.27, hemoglobin 7.5, sodium 148 on potassium 4.3, BUN 23, creatinine 0.47 09/16. Patient seen and examined labs reviewed showing WBC 5.45, hemoglobin 9.6, platelet count 131, sodium 146, potassium 4.1, BUN 20, creatinine 0.47. Continue small amount of Levophed. Currently on Zerbaxa and vancomycin. Currently on TPN September 17: ICU. Patient has taken a turn for the worse today. Significant thick white secretions from the trach. Sinus rhythm. Receiving TPN. Patient is on Levophed and vasopressor. Rather high dose. FiO2 [address] of 10. [address] Ho earlier spoke to the patient/family. Remains full code September 18: ICU. Intubated FiO2 70 PEEP of 12. Sinus rhythm. Drips include IV propofol at 50 and Levophed at 0.13. Patient is off vasopressin. Patient secretions. Family at the bedside. September 19: ICU. Intubated. FiO2 50 and a PEEP of 12. Drips include IV Levophed and propofol. Also started on Lasix drip 10 mg an hour yesterday. Secretions present. September 20: ICU. Intubated. FiO2 50 and a PEEP of 12. Hemoglobin 6.3. Secondary to blood being given. Patient been on and off Levophed. On propofol. Lipids have been held. Continues with TPN. Lasix drip was discontinued. Lovenox has been held because of low hemoglobin. Unable anemia is felt to be combination of regular blood draws and possible element element of hemolysis from all the infection. No dark stool. Family at the bedside September 21: ICU. Intubated. Received 2 units of blood yesterday. Hemoglobin 7.6 today. Per nephrology renal replacement therapy. Dialysis access placed by Dr. Cadena. Patient earlier today on Levophed. Propofol. Getting TPN. Sinus rhythm. Urine output decreased September 22: ICU. Intubated. FiO2 15 of PEEP of 12. Seen earlier today. Dialysis being started. Been on IV Levophed propofol. Sinus rhythm. TPN. Sinus rhythm. September 23: ICU. Intubated. Due for another dialysis today. Saw the patient earlier today. Remains on IV Levophed propofol. Sinus rhythm. TPN. On fentanyl patch. September 24: ICU. Intubated. FiO2 40 and PEEP of 12. Remains on IV Levophed and propofol. IV TPN. Decrease trach secretions. IV antibiotics. Was due for dialysis earlier today. September 25: ICU. Intubated. FiO2 30%. Patient getting IV Levophed and propofol. IV TPN. Dialysis today. Receiving IV antibiotics. Does opens eyes occasionally. Some commands per nursing. September 26: ICU. Intubated. FiO2 30 and a PEEP of 8. Had 2 L hemodialysis removed yesterday. Getting hemodialysis today. Aiming for 2 to 3 L. Patient is on propofol. Currently Levophed on hold. Getting TPN. Patient is actually awake and following commands. Sinus rhythm. Active Medications Albuterol/Ipratropium (Ipratropium-Albuterol 3 Ml Neb) 3 ml INHALATION RT-Q4H PRN PRN Reason: shortness of breath Last Admin: 09/26/24 07:46 Dose: 3 ml Artificial Tears (Artificial Tears-Hypromellose Drops 15 Ml Btl) 1 drops BOTH EYES QID PRN PRN Reason: Dry Eye(s) Last Admin: 09/04/24 12:52 Dose: 1 drops Chlorhexidine Gluconate (Chlorhexidine Gluconate 15 Ml Cup) 15 ml MUCOUS MEM BID ANNIE Last Admin: 09/26/24 09:48 Dose: Not Given Dextrose/Water (Dextrose 50% Syringe 50 Ml) 25 ml IVP PER PROTOCOL PRN; Protocol PRN Reason: Hypoglycemia Dextrose/Water (Dextrose 50% Syringe 50 Ml) 50 ml IVP PER PROTOCOL PRN; Protocol PRN Reason: Hypoglycemia Fentanyl (Fentanyl 100mcg/Hr Patch) 1 patch TRANSDERM Q72H ANNIE; Protocol Last Admin: 09/25/24 10:30 Dose: 1 patch Hydrocortisone Sodium Succinate (Hydrocortisone Succinate 100 Mg/2 Ml Vial) 50 mg IV Q12HR ANNIE Last Admin: 09/26/24 09:50 Dose: 50 mg Hydromorphone HCl (Hydromorphone 1 Mg/Ml 1 Ml Syringe) 1 mg IVP Q3HR PRN PRN Reason: Moderate Pain (Scale 4 to 6) Last Admin: 09/26/24 00:09 Dose: 1 mg Anidulafungin 100 mg/ Sodium (Chloride) 130 mls @ 84 mls/hr IVPB DAILY ANNIE; Protocol Last Admin: 09/26/24 09:49 Dose: 84 mls/hr Propofol 1,000 mg/ IV Solution 100 mls @ 32.34 mls/hr IV .Q3H6M ANNIE; Protocol Last Admin: 09/26/24 12:33 Dose: 20 mcg/kg/min, 12.936 mls/hr Norepinephrine Bitartrate 8 mg (/ Sodium Chloride) 258 mls @ 6.513 mls/hr IV .Q24H ANNIE; Protocol Last Titration: 09/26/24 14:35 Dose: 0.01 mcg/kg/min, 2.171 mls/hr Parenteral Vitamin Supplement 10 ml/ Zinc/Copper/Manganese/Selenium 1 ml/ Sodium Acetate 80 meq/ Sodium Chloride 32 meq / Calcium Gluconate 0.5 gm/Potassium Chloride 14 meq/Magnesium Sulfate 0.25 gm/Amino Acids/Dextrose 1,071.5 mls @ 33 mls/hr IV .Q24H ANNIE Stop: 09/27/24 05:59 Last Admin: 09/26/24 05:27 Dose: 33 mls/hr Parenteral Vitamin Supplement 10 ml/ Zinc/Copper/Manganese/Selenium 1 ml/ Sodium Acetate 80 meq/ Sodium Chloride 32 meq / Calcium Gluconate 0.5 gm/Potassium Chloride 14 meq/Magnesium Sulfate 0.5 gm/Amino Acids/Dextrose 1,072 mls @ 33 mls/hr IV .Q24H ANNIE Insulin Human Lispro (Insulin Lispro (Humalog) 100 Unit/Ml 10 Ml Vl) 0 unit SQ Q6HR ANNIE; Protocol Last Admin: 09/26/24 13:09 Dose: Not Given Lorazepam (Lorazepam 1 Mg/0.5 Ml Vial) 0.5 mg IV Q6HR PRN PRN Reason: Anxiety Last Admin: 09/15/24 18:26 Dose: 0.5 mg Miscellaneous Information (Pneumonia Protocol Utilized 1 Each Misc) 1 each PO ONCE PRN PRN Reason: Per Protocol Miscellaneous Information (Potassium Replacement Protocol 1 Each Misc) 1 each MISCELLANE DAILY PRN; Protocol PRN Reason: Per Protocol Miscellaneous Information (Magnesium Replacement Protocol 1 Each Misc) 1 each MISCELLANE DAILY PRN; Protocol PRN Reason: Per Protocol Naloxone HCl (Naloxone 0.4 Mg/Ml 1 Ml Vial) 0.2 mg IV Q2M PRN PRN Reason: Opioid Reversal Nystatin (Nystatin 100,000 Unit/Gm Powd 15 Gm) 1 applic TOPICAL BID ANNIE; Protocol Last Admin: 09/26/24 09:50 Dose: 1 applic Ondansetron HCl (Ondansetron 4 Mg/2 Ml Vial) 4 mg IVP Q6HR PRN PRN Reason: Nausea And Vomiting Last Admin: 09/01/24 19:41 Dose: 4 mg Pantoprazole Sodium (Pantoprazole 40 Mg/10 Ml Vial) 40 mg IV DAILY ANNIE Last Admin: 09/26/24 09:50 Dose: 40 mg Petrolatum (Zinc Oxide Paste (Z-Guard) 1 Applic) 1 applic TOPICAL BID PRN; Protocol PRN Reason: Wound Healing Social history: Patient started smoking at the age of [age] 1 pack a day stopped in 2016. Nonambulatory. Is cared by his son over. Who is also the DPOA Physical examination: VITAL SIGNS: 98, 66, 36, 104 x 60, 95% on the ventilator GENERAL:, Eyes open EYES: Pupils equal. Conjunctiva loan l. HEENT: External appearance of nose and ears normal, oral cavity dry NECK: JVD unable to assess; masses not palpable. Tracheostomy HEART: First and second heart sounds are normal; no edema. LUNGS: Respiratory rate increased, decreased breath sounds, some crackles ABDOMEN: Soft, nontender, liver spleen not palpable, no masses palpable. Double barrel ostomy. PSYCH: Following simple commands MUSCULOSKELETAL: Right BKA. Left foot drop. Left hand contracture. Right hand also with contracture but able to have some movements NEUROLOGICAL: Cranial nerves grossly intact; no facial asymmetry, slight movement in the right arm. L INVESTIGATIONS, reviewed in the clinical context: September 26: White count 7.3 hemoglobin 7.5 platelets 204 potassium 3.4 creatinine 0.87 September 25: White count 7.4 hemoglobin 7.6 platelets 194 potassium 3.5 creatinine 1.06 September 24: White count 6.6 hemoglobin 7 platelets 158 potassium 4 BUN 58 creatinine 1.52 phosphorus 6.2 th: White count 9.0 hemoglobin 7.7 platelets 155 potassium 4.5 creatinine 1.69 September 22: White count 7.4 hemoglobin 7.3 platelets 114 potassium 5.4 BUN 110 creatinine 1.79 September 18: White count 14.9 hemoglobin 7.6 ABG show pH of 7.2PCO2 of 68P O2 was 77 potassium was 6.1 repeat 5.2 creatinine 0.82 September 17: White count 20 hemoglobin 8.5 platelets 199 potassium 4.2 BUN 25 creatinine 0.4. ABG: pH 7.17 pCO2 79 PO277. September 02: White count 3.6 hemoglobin 9.7 platelets 130 potassium 3.9 BUN 23 creatinine 0.36 ionized calcium 4.3 TSH 2.7 Sputum culture: Pseudomonas aeruginosa: Sensitive to Zosyn, tobramycin, ceftazidime Sputum culture: Pseudomonas aeruginosa August 30: White count 3.5 hemoglobin 10.0 platelets 133 potassium 3.5 creatinine 0.36 August 29, 2024: White count 6.2 hemoglobin 12.3 platelets 216 sodium 128 potassium 3.1 BUN 50 creatinine 0.46 lactic acid 2.1 calcium 10.8 phosphorus 3.0 troponin I 0.016 UA: Negative for nitrite Influenza type A, type B, RSV, SARS-CoV-2: Not detected EKG tracing personally reviewed by me-normal sinus rhythm Chest x-ray film personally reviewed by me-right basilar infiltrate Previous labs: Sputum culture July 20, 2024: Pseudomonas aeruginosa Assessment plan: - basal pneumonia. Previous admission sputum was positive for Pseudomonas aeruginosa-:: Slow to respond Has received different antibiotics. Currently: Aniedulefungin IV, IV ceftolozane tazobactam, IV vancomycin Being followed by pulmonary, and ID - Fluid overload Had received Lasix drip - Acute kidney injury from ATN from septic shock. Also consider vancomycin toxicity. Oliguric. Volume overload. Dialysis catheter placed by Dr. Cadena-September 21. First dialysis was on September 22.-Has been getting daily dialysis - Septic shock: Currently better Levophed on hold - Acute on chronic hypoxic and hypercapnic respiratory failure, vent dependent at night at home: Slow to respond On ventilator support. Propofol - Tracheostomy with trach collar -Acute normocytic anemia of chronic disease and hospital-acquired anemia from blood draws and possible hemolysis from infection 2 units of blood given September 20. - Thrombocytopenia likely from sepsis Follow - Right below-knee amputation - Chronic quadriparesis. Including left foot drop. Left arm contracture. Some right hand contracture. Some movement in the right arm - Crohn's disease with double barrel ostomy bag in place since 09/2021 - TPN and lipids Lipids have been held during propofol - Full code - DPOA, son BECYK Currently Levophed on hold. Getting hemodialysis today. Remains on propofol. Past Medical History Past Medical History: CVA/TIA, Deep Vein Thrombosis (DVT), Pneumonia Additional Past Medical History / Comment(s): Hx CVA in 2012, DVT R arm, Crohns. colostomy Bag placed in 09/2021. History of Any Multi-Drug Resistant Organisms: MRSA, Other MDRO Date of last positivie culture/infection: 07/20/24-Other MDRO; 12/14/23-MRSA MDRO Source:: Other MDRO - sputum, BAL; MRSA- nasal Past Surgical History: Bowel Resection, Cholecystectomy, Orthopedic Surgery Additional Past Surgical History / Comment(s): R BKA, trach with chronic home vent Past Anesthesia/Blood Transfusion Reactions: No Reported Reaction Additional Past Anesthesia/Blood Transfusion Reaction / Comment(s): recalled from previous admission Smoking Status: Never smoker
--- NOTE | 2024-09-26 16:21 | P.PN ---
Subjective Progress Note Date: 09/26/24 Principal diagnosis: Reason for follow-up is sepsis and pneumonia/candidemia Patient is a 49-year-old male with a past medical history significant for CVA TIA DVT pneumonia history of complicated Crohn's disease in this patient who did have multiple abdominal surgeries patient also have a tracheostomy has been brought to the hospital with Generalized weakness did have a fever concerning for pneumonia on today's evaluation that is 09/27/2023, patient did have a temperature of 98 F this afternoon the patient remains to be debated on the vent through the trach FiO2 is currently at 30% no significant purulent secretion through the ET patient did have dialysis this afternoon and 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 Patient white count 7.32, creatinine 0.87 blood culture repeat has been negative Objective - Vital Signs Vital signs: Vital Signs Temp 98 F 09/26/24 16:14 Pulse 70 09/26/24 16:14 Resp 36 H 09/26/24 16:14 BP 108/59 09/26/24 16:14 Pulse Ox 97 09/26/24 16:14 FiO2 30 09/26/24 15:20 Intake & Output 09/25/24 09/26/24 09/26/24 18:59 06:59 18:59 Intake Total 1263.582 515.700 1877.688 Output Total 6691 830 7325 Balance -5427.418 -80.708 -6240.312 Weight 111.1 kg 107.4 kg Intake: IV 555 582 441 0.9 KVO 120 120 90 Pressure Bag, CVP and ART 72 66 54 TPN 363 396 297 Intake, IV Titration 275.582 167.292 143.688 Amount Norepinephrine 8 mg In 100.300 76.093 19.502 Sodium Chloride 0.9% 250 ml @ 0.03 MCG/KG/MIN 6. 513 mls/hr IV .Q24H ANNIE Rx#:[id number] propofoL 1,000 mg In 175.282 91.199 124.186 Empty Bag 1 bag @ 50 MCG/ KG/MIN 32.34 mls/hr IV . Q3H6M ANNIE Rx#:[id number] TPN/PPN 33 TPN 33 Hemodialysis 400 500 Output: Drainage 2250 Medial Abdomen 2250 Urine 41 30 25 Stool 800 800 Hemodialysis 2400 3500 Hemodialysis Net Amount 1999 3000 Other: Voiding Method Indwelling Catheter Indwelling Catheter Indwelling Catheter ABP, PAP, CO, CI - Last Documented Arterial Blood Pressure 50/42 - Exam GENERAL DESCRIPTION: Middle-age male intubated on the vent RESPIRATORY SYSTEM: Unlabored breathing , decreased breath sounds at bases HEART: S1 S2 regular rate and rhythm , ABDOMEN: Soft , no tenderness EXTREMITIES: Swelling to the leg - Labs CBC & Chem 7: 09/26/24 05:00 09/26/24 05:00 Labs: Abnormal Lab Results - Last 24 Hours (Table) 09/25/24 09/25/24 09/26/24 Range/Units 17:48 18:30 00:13 RBC (4.40-5.60) 10*6/uL Hgb (13.0-17.0) g/dL Hct (39.6-50.0) % MCH (27.0-32.0) pg MCHC (32.0-37.0) g/dL Immature Gran # (0.00-0.04) 10*3/uL Lymphocytes # (0.90-5.00) 10*3/uL ABG pH (7.35-7.45) ABG pCO2 (35-45) mmHg ABG pO2 (83-108) mmHg ABG HCO3 (21-25) mmol/L ABG Total CO2 (19-24) mmol/L Sodium (137-145) mmol/L Potassium 3.4 L (3.5-5.1) mmol/L BUN (9-20) mg/dL POC Glucose (mg/dL) 127 H 117 H (70-110) mg/dL Calcium (8.4-10.2) mg/dL Triglycerides (0.00-149.00) mg/dL 09/26/24 09/26/24 09/26/24 Range/Units 05:00 05:00 05:00 RBC 2.82 L (4.40-5.60) 10*6/uL Hgb 7.5 L (13.0-17.0) g/dL Hct 23.7 L (39.6-50.0) % MCH 26.6 L (27.0-32.0) pg MCHC 31.6 L (32.0-37.0) g/dL Immature Gran # 0.05 H (0.00-0.04) 10*3/uL Lymphocytes # 0.76 L (0.90-5.00) 10*3/uL ABG pH (7.35-7.45) ABG pCO2 (35-45) mmHg ABG pO2 (83-108) mmHg ABG HCO3 (21-25) mmol/L ABG Total CO2 (19-24) mmol/L Sodium 132 L (137-145) mmol/L Potassium 3.4 L (3.5-5.1) mmol/L BUN 22 H (9-20) mg/dL POC Glucose (mg/dL) (70-110) mg/dL Calcium 7.8 L (8.4-10.2) mg/dL Triglycerides 215.00 H (0.00-149.00) mg/dL 09/26/24 Range/Units 05:25 RBC (4.40-5.60) 10*6/uL Hgb (13.0-17.0) g/dL Hct (39.6-50.0) % MCH (27.0-32.0) pg MCHC (32.0-37.0) g/dL Immature Gran # (0.00-0.04) 10*3/uL Lymphocytes # (0.90-5.00) 10*3/uL ABG pH 7.54 H (7.35-7.45) ABG pCO2 34 L (35-45) mmHg ABG pO2 73 L (83-108) mmHg ABG HCO3 29 H (21-25) mmol/L ABG Total CO2 30 H (19-24) mmol/L Sodium (137-145) mmol/L Potassium (3.5-5.1) mmol/L BUN (9-20) mg/dL POC Glucose (mg/dL) (70-110) mg/dL Calcium (8.4-10.2) mg/dL Triglycerides (0.00-149.00) mg/dL Microbiology - Last 24 Hours (Table) 09/22/24 18:46 Blood Culture - Preliminary Blood Assessment and Plan (1) Pneumonia Current Visit: Yes Status: Acute Code(s): J18.9 - PNEUMONIA, UNSPECIFIED ORGANISM SNOMED Code(s): 182292925 (2) Sepsis Current Visit: Yes Status: Acute Code(s): A41.9 - SEPSIS, UNSPECIFIED ORGANISM SNOMED Code(s): 54922172 (3) Candidemia Current Visit: Yes Status: Acute Code(s): B37.7 - CANDIDAL SEPSIS SNOMED Code(s): 774560706 Plan: 1patient is a hospital with sepsis in this patient who did have fever tachycardia elevated lactic acid upon meeting criteria for SIRS/sepsis source likely pneumonia 2-patient is status post bronchoscopy lavage results currently growing Pseu domonas that is resistant to Avycaz and corynebacterium, sensitivity on corynebacterium is pending 3-patient with Pseudomonas pneumonia for the patient has completed his antibiotic therapy 4-patient did have candidemia source is likely left chest wall PICC line which has been discontinued has been sent for the culture central line placed by clerical aide teacher, blood culture repeat on 09/18/2024 positive blood culture repeat 09/22/2024 so far negative. 5patient remains to be afebrile white count has been normal repeat blood culture negative okay to continue with Eraxis to finish his course of therapy Dictation was produced using [employer] dictation software. please excuse any grammatical, word or spelling errors. Time with Patient: Less than 30
[2024-09-26 17:32] LABS: Glucose,Whole Blood 105 mg/dL (70-110)
[2024-09-26 23:24] LABS: Glucose,Whole Blood 92 mg/dL (70-110)
[2024-09-27] MEDS: [UNRECOGNIZED DRUG - REMARK] IV SCH (05:25)
[2024-09-27 05:38] LABS: ABG HCO3 30 mmol/L (21-25); ABG PCO2 34 mmHg (35-45); ABG PH 7.54 (7.35-7.45); ABG PO2 79 mmHg (83-108); ABG TCO2 31 mmol/L (19-24)
[2024-09-27 05:41] LABS: Glucose,Whole Blood 94 mg/dL (70-110)
[2024-09-27] MEDS ORDERED: [UNRECOGNIZED DRUG - REMARK] IV SCH (06:00)
[2024-09-27 06:01] LABS: Allen Test Performed? No
[2024-09-27 06:24] LABS: African American GFR (CKD) >90 (>60 ml/min/1.73 sqM); Anion Gap 8 mmol/L; Blood Urea Nitrogen 19 mg/dL (9-20); Calcium 8.1 mg/dL (8.4-10.2); Carbon Dioxide 26 mmol/L (22-30); Chloride 97 mmol/L (98-107); Glucose 85 mg/dL (74-99); Magnesium 1.6 mg/dL (1.6-2.3); Non-African American GFR(CKD) >90 (>60 ml/min/1.73 sqM); Potassium 3.4 mmol/L (3.5-5.1); Sodium 131 mmol/L (137-145)
[2024-09-27 06:28] LABS: Basophils # (A) 0.01 10*3/uL (0.00-0.10); Basophils % (A) 0.1 %; Eosinophils # (A) 0.06 10*3/uL (0.04-0.35); Eosinophils % (A) 0.9 %; HCT 24.8 % (39.6-50.0); HGB 7.8 g/dL (13.0-17.0); Lymphocytes # (A) 0.84 10*3/uL (0.90-5.00); Lymphocytes % (A) 12.0 %; MCH 26.5 pg (27.0-32.0); MCHC 31.5 g/dL (32.0-37.0); MCV 84.4 fL (80.0-97.0); Monocytes # (A) 0.43 10*3/uL (0.20-1.00); Monocytes % (A) 6.2 %; Neutrophils # (A) 5.57 10*3/uL (1.80-7.70); Neutrophils % (A) 79.7 %; Platelet Count 224 10*3/uL (140-440); RBC 2.94 10*6/uL (4.40-5.60); RDW 21.6 % (11.5-14.5); WBC 6.99 10*3/uL (4.50-10.00)
[2024-09-27] MEDS: MAGNESIUM SULFATE-D5W PMX 1 GM in DEXTROSE/WATER 1 100ML.BAG IVPB SCH (06:50)
--- NOTE | 2024-09-27 07:08 | XR ---
EXAMINATION TYPE: XR chest 1V portable DATE OF EXAM: 09/27/2024 COMPARISON: 09/26/2024 CLINICAL INDICATION: Male, 49 years old with history of mechanically ventilated; TECHNIQUE: Single frontal view of the chest is obtained. FINDINGS: No change in the tracheostomy tube or right sided central venous catheter. There is no change in the diffuse interstitial opacity and right pleural effusion. There is no pneumothorax. IMPRESSION: No change in the bilateral acute cardiopulmonary process. [facility], , 09/27/2024 7:06 AM
[2024-09-27] MEDS: POTASSIUM CHLORIDE 20 MEQ in WATER FOR INJECTION 1 100ML.BAG IVPB SCH (09:24)
--- NOTE | 2024-09-27 09:58 | P.PN ---
Subjective Progress Note Date: 09/27/24 Principal diagnosis: Pneumonia. This is a 49-year-old white male familiar to my service, history of paraplegia, home vent dependent, history of tracheostomy, patient had multiple admissions to the ICU for recurrent episodes of pneumonia and respiratory failure requiring ventilatory support. On his last admission patient was eventually discharged home on a home ventilator, and this was back on 08/04/2024. Patient was discharged home with a PICC line, patient was in the ER yesterday on 08/28 for abnormal labs mostly low potassium and low sodium discharged home however he cam e back today complaining of shortness of breath, has been ventilator dependent all along. Chest x-ray showed basically bibasilar opacities/atelectasis, doubt pneumonia, the findings in the left lower lobe are chronic. Patient did have previous history of pneumonia involving the left lower lobe and he had multiple bronchoscopies in the past. Bronchial cultures and sputum cultures have been positive in the past for mostly Pseudomonas aeruginosa. Patient was seen in the ER today, and he is already on cefepime for empiric coverage for potential left lower lobe pneumonia, patient had abnormal electrolytes with relatively low sodium low potassium, no leukocytosis, normal renal profile, blood pressure was soft, and he was given fluid boluses. Lactic acid was 2.1, D-dimer is normal, patient was admitted, and this consult was initiated. 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 Patient was seen today on 08/30/2024, patient continues to have intermittent episodes of fever with Tmax of 102, patient required norepinephrine and he remains on norepinephrine at 0.04 mcg/kg/min remains on LR at 130 cc/h remains on his home ventilator at tidal volume of 450 rate of 20 FiO2 45% and PEEP of 5. Seems comfortable, not in distress, his WBC is 3.5 hemoglobin 10.0 electrolytes are normal renal profile is normal potassium is borderline low. Patient remains on cefepime, vancomycin was added because of his previous history of MRSA, and is on cefepime for previous history of pseudomonal infection and now that the patient may be septic it is more of a reason to broaden the spectrum of antibiotics coverage with cefepime and vancomycin. Sputum cultures and blood cultures are pending. Patient does have history of pseudomonal and history of MRSA infections, and I discontinued his Zithromax today replace Zithromax with vancomycin. Viral screen is negative Legionella antigen is negative. Chest x- ray is relatively unchanged continues to show bibasilar opacities atelectasis/pneumonia. Progress note dated August 31, 2024. The patient is seen today in room 252. The patient was admitted a couple days ago, to the intensive care unit. The patient is currently on mechanical ventilator, actually his home ventilator. He is on volume assist-control, rate 20, tidal volume 450, FiO2 45% PEEP of 5. The patient is getting lactated Ringer's at 130 cc an hour, TPN at 91 cc an hour, norepinephrine at 8 mcg/min. Doppler of the left upper extremity was negative. He continues on Zerbaxa, and vancomycin. We will check a procalcitonin level. Cultures thus far are negative. He does have a previous history of methicillin-resistant Staph aureus infection, and pseudomonal infections. White count was 2.21, hemoglobin 9.3, hematocrit 32, platelet count 1 61,000. D-dimer was 5.78. Sodium 132, potassium 4.3, chlorides 106, CO2 21, BUN 18, creatinine 0.28. Glucose was 141. Calcium 7.8. C. difficile study was negative. Urine Legionella antigen was negative. Microbiologic studies are currently negative. Chest x-ray shows bibasilar airspace opacities, possibly consistent with pneumonia. 09/01/24 - The patient is seen today in room 252. Admitted to the hospital and the intensive care unit on 08/29/2024. The patient is currently on mechanical ventilator, his one from home. He is on volume assist control, rate of 20, tidal volume of 450, FiO2 45% and PEEP of 5. He currently has LR running at 50 cc/h, TPN at 91 cc/h, Zerbaxa and tobramycin. Chest Xray done this morning showed stable airspace opacities. Cultures are positive for pseudomonas aeruginosa, awaiting sensitivities. WBCs 2.69, Hgb 8.9, Hct 31.5, PLT 153, Na 135, K 3.4, Cl 109, HCO3 19, BUN 22, Cr 0.34, Phos 2.4. 09/02/24 - He is seen today in room 252. Admitted to the hospital and ICU on 08/29/24. He continues on mechanical ventilator, his one from home. He remaines on volume assist control, rate of 20, tidal volume of 450, FiO2 45% and PEEP of 5. He continues to have LR running at 50 cc/h, TPN at 91 cc/h, norepinephrine at 0.13 mcg/kg/min, Zebraxa and Tobramycin. Chest XRay this morning showed stable airspace opacities. Continue to await sensitivity of pseudomonas sputum culture. Lab work shows WBCs 3.64, Hgb 9.7, Hct 33.5, PLT 130, Na 133, K 3.9, bicarb 21, BUN 23, Cr 0.36, Ca 7.8, Mg 2.4, Albumin 2.3. 09/03/24 - He is seen in room 252. Admitted to the hospital and ICU on 08/29/24. He continues on mechanical ventilator, his one from home. He remaines on volume assist control, rate of 20, tidal volume of 450, FiO2 45% and PEEP of 5. He continues to have LR running at 50 cc/h, TPN at 91 cc/h, norepinephrine at 0.24 mcg/kg/min, Avycaz and Tobramycin. Zebraxa was discontinued as there was no reported sensitivity to it. Lab work shows WBCs 9.40, Hgb 8.8, Hct 30.6, PLT 100, Na 130, K 3.6, bicarb 23, BUN 25, Cr 0.51, Ca 7.8, Ionized Ca 4.6, Phos 3.3, Mg 2.1, TSH 2.710 and random cortisol 13.1. 09/04/24 - He is seen in room 252. Admitted to the hospital and ICU on 08/29/24. He continues on mechanical ventilator, his one from home. He remaines on volume assist control, rate of 20, tidal volume of 450, FiO2 45% and PEEP of 5. He continues to have LR running at 50 cc/h, TPN at 91 cc/h, norepinephrine at 0.24 mcg/kg/min, Avycaz and Tobramycin. Lab work shows sodium 133, potassium 3.5, bicarb 24, BUN 27, creatinine 0.47, calcium 7.9, ionized calcium 4.6, magnesium 1.9, phosphorus 3.0, total bilirubin 1.7, AST 57, ALT 45, alkaline phosphatase 99. Progress note dated September 05, 2024. 49-year-old male well-known to our service. He is seen today in room 252. He continues on volume assist-control, rate 20, tidal 450, FiO2 45%, PEEP of 5. The patient has refused blood gases. Currently, he is getting TPN at 65 cc an hour, norepinephrine at 1 mcg/min, LR at 50 cc/h. Clinically, the patient is doing well. His chest x-ray remains about the same. Yesterday he was on a higher dose of norepinephrine, and also was on vasopressin. Both have been weaned off. Current labs include a sodium 136, potassium 4.1, chlorides 101, CO2 28, BUN 30, creatinine 0.37. Glucose 153. Albumin is 2.2. Previous sputum, from August 29 with positive for Pseudomonas aeruginosa. Chest x-ray is largely unchanged. Progress note dated September 06, 2024. 49-year-old male again seen today in the intensive care unit, room 252. He remains on mechanical ventilator, actually his home ventilator, with settings of volume assist-control, rate 20, tidal volume 450, FiO2 45%, PEEP of 5. No blood gases today. The patient has been refusing. He is getting lactated Ringer's at 50 cc an hour, TPN at 65 cc an hour. He continues on the same antibiotics. White count 5.21, hemoglobin 7.9, hematocrit 27.5, and platelet count 64,000. Sodium 141, potassium 3.5, chlorides 102, CO2 32, BUN 25, and creatinine 0.35. Glucose is 152. Calcium is 8. Albumin is 2.1. Chest x-ray is largely unchanged. Patient was seen today on 09/16/2024, patient is basically about the same. Hardly any improvement noted in the last few weeks since admission, patient remains intubated, mechanically ventilated, same ventilator settings, assist-control rate of 20 tidal volume 450 FiO2 60% and PEEP of 8 ABG was not done today, no easy access, attempted to place arterial lines in this patient, but could not pass a wire although the arteries including femoral artery and left brachial artery were easily cannulated. No further attempts made for arterial access. Patient remains on norepinephrine at 0.13 mcg/kg/min still on TPN at 75 cc/h still on Zerbaxa and vancomycin chest x-ray showed worsening today of bilateral infiltrates possibly some component of fluid overload and I recommended Lasix 20 mg IV push twice daily. Patient seems to be quite swollen and edematous. WBC count is 5.4 hemoglobin 7.6 electrolytes showed sodium of 146 potassium 4.1 BUN 20 creatinine 0.47 Patient was seen today on 09/17/2024, patient seems to be deteriorating steadily over the last 24 hours, he is developing profound hypotension requiring pressors in the form of Levophed at 0.4 mcg/kg/min he is also on vasopressin at 0.04 units/min he is on TPN at 75 cc/h hemoglobin is noted to be low at 6.9, patient has positive yeast in the blood/fungemia he is on fluconazole, this is being addressed by infectious disease on the case. Earlier ABG showed a pO2 of 77 pCO2 88 pH of 7.13, Vent settings were adjusted with increasing the rate to 36. He is now on tidal volume of 350 FiO2 100% PEEP is 10 and rate is 36. Another ABG is pending. But clearly patient is taking a downhill clinical course. Patient is quite septic, I will likely change his central line, and place a new central line in this patient today and remove the old central line/PICC line. Patient will receive a unit of packed RBCs for hemoglobin of 6.9. Considering the change in his overall clinical status, discussed his condition with son, would like to keep his dad as a full code, he is very well aware of the poor prognostic picture and how ill his dad is. Would like to keep him a full code. WBC count today is 20.03 hemoglobin 8.5, basic metabolic profile is normal BUN is 25 creatinine 0.4 total protein is 6.9 albumin is 1.9. Patient was seen today on 09/18/24, remains in the ICU, intubated and mechanically ventilated. Patient is still requiring assist-control rate of maximal ventilatory support with rate of 36 tidal volume increased today up to 400 FiO2 decreased from 100% to 70% PEEP remains at 12. Earlier ABG before changes were made at the FiO2 had been on tidal volume showed a pO2 of 77 pCO2 68 pH of 7.20. Patient is still requiring norepinephrine and I have been titrating the norepinephrine earlier this morning he is down to 0.18 from 0.46 yesterday micrograms per kilo per minute vasopressin is still at 0.04 units/min patient is on propofol at 50 mcg/kg/min Lasix drip at 20 mg/h and TPN at 75 cc/h. I am also treating the patient with vancomycin, Zerbaxa, and Eraxis was added to replace fluconazole yesterday by infectious disease specially with his positive blood cultures for Bella. Urine output is improving with the Lasix drip, he did not improve much with 1 dose of Lasix 60 mg IV push. Remains on Solu-Cortef at 100 mg IV push every 8 hours patient is in positive fluid balance about 6 L hence I decided to go with Lasix drip today. Labs today showed slight improvement in his WBC count down to 14.9 hemoglobin is 7.6, electrolytes are abnormal with a potassium of 6.1 BUN is 45 creatinine 0.82 chest x-ray continues show bilateral interstitial edema/infiltrates, could be cardiogenic or noncardiogenic pulmonary edema I believe it is mostly cardiogenic/related to fluid overload as he received significant fluids yesterday for low blood pressure. And he was not making much urine in the last 24 hours. Hence Lasix drip was started today. Patient was seen today on 09/19/2024, remains in the ICU, remains intubated and mechanically ventilated. Patient is on assist-control rate of 36 tidal volume 400 FiO2 65% and PEEP of 12. His ABG showed a pO2 of 142 pCO2 52 pH of 7.28, hence cut down his FiO2 down to 50%. The PEEP at 12. Patient remains hemodyn amically unstable, remains on norepinephrine at 0.08 mcg/kg/min, his vasopressin has been discontinued. TPN is at 75 cc/h. Remains on Lasix drip/infusion at 20 mg/h. He is on propofol at 50 mcg/kg/min remains on Solu-Cortef 50 mg every 8, Eraxis, Zerbaxa, vancomycin. Urine output is marginal at about 10 to 20 cc/h in spite of Lasix drip. Lovenox will be resumed today at 80 mg subcu twice daily. Patient is sedated, his overall clinical status is showing slight improvement compared to the clinical status couple of days ago. Chest x-ray continues to show evidence of interstitial edema although the possibility of ARDS is not entirely ruled out considering his overall septic picture. CBC is about the same with WBC of 7.7 hemoglobin 7.1. Platelets are 128,000. Basic metabolic profile is normal potassium is down to 5.2 BUN is 67 creatinine is slightly higher today 1.13. Blood sugar is 358. Patient was seen today on 09/20/2024, remains in the ICU intubated mechanically ventilated. On assist-control rate of 36 tidal volume 400 FiO2 50% PEEP of 12, no ABG done today, however his O2 saturation is in the high 90s about 98%. Patient had a low hemoglobin today and he will need a unit of blood/packed RBCs for low hemoglobin. No active bleeding noted, Hemoccult stools will be done t lizette. Patient remains on Eraxis and Zerbaxa, his vancomycin was discontinued remains on lower dose of Solu-Cortef 50 mg IV push every 12 hours. Continues to have poor urine output and his renal functioning is getting a bit worse. Nephrology was consulted, patient received initially significant amount of fluids for his presentation of sepsis, and he remained oliguric in spite of fluid boluses. Then he was placed on Lasix drip which initially was working fine, now that urine output is rather marginal and spite of Lasix drip at 20 mg an hour. I am recommending a trial of albumin followed by 80 mg of Lasix IV push. And hopefully his urine output will sampler pickup with the albumin and with the blood transfusion which is scheduled to be done soon. Vancomycin has been discontinued. Chest x-ray continues to show evidence of interstitial edema. Labs are reviewed his potassium is 5 bicarb is 20 BUN is 83 creatinine 1.49 platelets are 105 hemoglobin 6.3. Progress note dated September 21, 2024. The patient remains on volume assist-control, rate 36, tidal volume 400, FiO2 50%, PEEP of 12. Blood gases were not obtained. He continues on TPN at 75 cc an hour, propofol at 50 mcg/kg/min, saline at 10 cc an hour, and norepinephrine is currently on hold. Antibiotic douglas, he continues on vancomycin, and Eraxis. White count is 6.9, hemoglobin 7.6, hematocrit 24.3, and platelet count 115,000. Sodium 137, potassium 5.1, chlorides 103, CO2 18, anion gap 16, BUN 99, creatinine 1.58. Glucose is 228. Calcium 8.1, phosphorus 5.4, magnesium 2.5. Culture data shows evidence of Pseudomonas aeruginosa back on August 29, Pseudomonas in the bronchial washings on September 07, and blood cultures positive, September 18, currently pending. Chest x-ray is largely unchanged, shows patchy diffuse airspace opacities, with a small right-sided pleural effusion. Progress note dated September 22, 2024. The patient is seen today in room 252. He remains on volume assist-control. Settings include volume assist-control 36, tidal volume 400, FiO2 50%, PEEP of 12. He is getting propofol at 50 mcg/kg/min, norepinephrine at 3 mcg/min, and TPN at 75 cc an hour. He is having hemodialysis today. The goal is removal of 1 to 2 L of fluid. He continues on Eraxis. We were able to place a right radial arterial line. We will repeat a blood gas, after hemodialysis. Current laboratory data includes a white count 7.4, hemoglobin 7.3, hematocrit 23.4, and a platelet count of 114,000. Sodium 134, potassium 5.4, chlorides 104, CO2 15, anion gap 15, BUN 110, creatinine 1.79. Glucose is 153. Calcium is 8.3. Previous blood in sputum sampling, showed evidence of Pseudomonas aeruginosa. The patient also has previous blood culture showing evidence of Bella species. Chest x-ray today is largely unchanged. Progress note dated September 23, 2024. 49-year-old male seen today in room 252. He remains on mechanical ventilation. He is on volume assist-control, rate 36, tidal volume 400, FiO2 40%, PEEP of 12. Blood gases show pO2 100, pCO2 44, pH is 7.30. Patient continues on norepinephrine at 5.6 mcg/min, propofol at 50 mcg/kg/min, TPN at 33 cc an hour. He is getting saline at 10 cc an hour. He had hemodialysis yesterday, September 22, and 1 L of fluid was removed. He continues on Eraxis, as per infectious diseases. White count is 9.0, hemoglobin 7.7, hematocrit 24, and platelet count is 155,000. Sodium 132, potassium 4.5, chlorides 96, CO2 20, anion gap 16, BUN 80, and creatinine 1.69. Glucose is 145. Calcium 8.5. Most recent blood cultures, on September 18, were positive for Bella. Today's chest x-ray is largely unchanged. Progress note dated September 24, 2024. 49-year-old male seen today in room 252. The patient continues on life support, IV volume assist-control, rate 36, tidal volume 400, FiO2 40%, PEEP of 12. Blood gases show pO2 100, pCO2 42, pH is 7.39. The patient is getting propofol at 15 mcg/kg/min, norepinephrine at 4 mcg/min, TPN at 33 cc an hour, and saline at 10 cc an hour. The patient's hemoglobin is 7. He continues on Eraxis. The patient static lung compliance is 23.5 mL/cm water. He has very stiff lungs. White count is 6.7, hemoglobin 7, hematocrit 22.4, platelet count 158,000. Sodium 130, potassium 4, chlorides 95, CO2 22, anion gap 13, BUN 58, creatinine 1.52. Glucose is 114. Calcium 8.3. Magnesium 1.7. No recent new culture data. Chest x-ray is about the same as it was a day before. It shows right basilar airspace opacities, with a small right-sided pleural effusion. There was some interstitial prominence. Progress note dated September 25, 2024. 49-year-old male seen today in room 252. He remains on volume assist-control, rate 36, tidal volume 400, FiO2 30%, and PEEP of 12, to be dropped to a PEEP of 8. Blood gases show pO2 of 82, pCO2 36, pH of 7.49. The patient is on TPN at 33 cc an hour, propofol at 30 mcg/kg/min, and norepinephrine at about 3 mcg/min. He is having hemodialysis today. Goal is to remove 2 to 3 L if tolerated. The patient continues on Eraxis. White count 7.5, hemoglobin 7.6, hematocrit 23.9, and platelet count of 194,000. Sodium 129, potassium 3.5, chloride 94, CO2 24, anion gap normal, BUN 35, creatinine 1.06. Glucose is 115. Albumin is 2.5. Recent blood cultures are positive for Bella. Chest x-ray is largely u nchanged. There is right basilar airspace disease, with a small right-sided pleural effusion. Progress note dated September 26, 2024. 49-year-old male seen today in room 252. He remains on volume assist-control, rate 36, tidal volume 400, FiO2 30%, PEEP of 8. Blood gases show pO2 of 73, a PCO2 of 34, and a pH of 7.54. He continues on propofol at 20 mcg/kg/min, norepinephrine at approximately 2 mcg/min, TPN at 33 cc an hour. The patient does continue on Eraxis, for fungemia. Current labs showed a white count of 7.32, hemoglobin 7.5, hematocrit 23.7, and a normal platelet count. Sodium 132, potassium 3.4, chloride 79, CO2 25, anion gap 8, BUN 22, and creatinine 0.87. Chest x-ray shows bilateral infiltrates, consistent with either pneumonia, or fluid overload. The chest x-ray is largely unchanged from the prior x-ray. Progress note dated September 27, 2024. 49-year-old male again seen in room 252. He remains on mechanical ventilation. He is on volume assist-control, rate 36, tidal volume 400, FiO2 30%, PEEP of 8. Blood gases show PO279, PCO2 of 34, pH is 7.54. The patient continues on propofol at 20 mcg/kg/min, norepinephrine at 2 mcg/min, TPN at 33 cc an hour. He had hemodialysis yesterday, 3 L was removed. He continues on Eraxis. In that regard, I did ask the nurse to call the infectious disease doctor, to get a stop date on this medication. White count 6.9, hemoglobin 7.8, hematocrit 24.8, platelet count 224,000. Sodium 131, potassium 3.4, chloride 97, CO2 26, anion gap 8, BUN 19, and creatinine 0.87. Calcium is 8.1. Chest x-ray, in my opinion, is improved. Objective - Vital Signs Vital signs: Vital Signs Temp 98.6 F 09/27/24 08:00 Pulse 59 L 09/27/24 09:15 Resp 37 H 09/27/24 09:15 BP 100/48 09/27/24 09:15 Pulse Ox 96 09/27/24 09:15 FiO2 30 09/27/24 08:00 Intake & Output 09/26/24 09/27/24 09/27/24 18:59 06:59 18:59 Intake Total 1280.688 772.601 150.918 Output Total 7335 1715 455 Balance -6054.312 -942.399 -304.082 Weight 107.2 kg Intake: IV 637 518 138 0.9 KVO 130 110 30 Pressure Bag 78 45 9 TPN 429 363 99 Intake, IV Titration 143.688 254.601 12.918 Amount Norepinephrine 8 mg In 19.502 54.601 12.918 Sodium Chloride 0.9% 250 ml @ 0.03 MCG/KG/MIN 6. 513 mls/hr IV .Q24H ANNIE Rx#:[id number] propofoL 1,000 mg In 124.186 200 Empty Bag 1 bag @ 50 MCG/ KG/MIN 32.34 mls/hr IV . Q3H6M ANNIE Rx#:[id number] Hemodialysis 500 Output: Drainage 900 Medial Abdomen 900 Urine 35 15 5 Stool 800 800 450 Hemodialysis 3500 Hemodialysis Net Amount 3000 Other: Voiding Method Indwelling Catheter Indwelling Catheter Indwelling Catheter ABP, PAP, CO, CI - Last Documented Arterial Blood Pressure 37/31 - Exam No acute distress, currently connected to the ventilator. He has a tracheostomy tube in place. HEENT examination is grossly unremarkable. Mucous membranes are moist. No oral lesions. Neck supple. Full range of motion. No adenopathy thyromegaly or neck vein distention. Cardiovascular examination reveals regular rhythm rate. S1-S2 normal. No S3 or S4. No discernible murmur noted. Lungs reveal scattered rhonchi and crackles. No wheezes. Breath sounds equal bilaterally. Abdomen reveals an enterocutaneous fistula, normal bowel sounds. No tenderness. No masses. Extremities are intact. No cyanosis clubbing or edema. Right below the knee amputation. Has a right radial arterial line. Skin is without rash or lesion. Neurologic examination is brief but nonfocal. He does have significant muscle atrophy, and contractures. He has a right below the knee amputation. - Labs CBC & Chem 7: 09/27/24 05:40 09/27/24 05:40 Labs: Abnormal Lab Results - Last 24 Hours (Table) 09/27/24 09/27/24 09/27/24 Range/Units 05:36 05:40 05:40 RBC 2.94 L (4.40-5.60) 10*6/uL Hgb 7.8 L (13.0-17.0) g/dL Hct 24.8 L (39.6-50.0) % MCH 26.5 L (27.0-32.0) pg MCHC 31.5 L (32.0-37.0) g/dL Immature Gran # 0.08 H (0.00-0.04) 10*3/uL Lymphocytes # 0.84 L (0.90-5.00) 10*3/uL ABG pH 7.54 H (7.35-7.45) ABG pCO2 34 L (35-45) mmHg ABG pO2 79 L (83-108) mmHg ABG HCO3 30 H (21-25) mmol/L ABG Total CO2 31 H (19-24) mmol/L ABG O2 Saturation 97.2 H (94-97) % Hemoglobin 8.1 L (13.0-17.5) gm/dL Sodium 131 L (137-145) mmol/L Potassium 3.4 L (3.5-5.1) mmol/L Chloride 97 L (98-107) mmol/L Calcium 8.1 L (8.4-10.2) mg/dL Assessment and Plan Assessment: Septic shock, likely secondary to Pseudomonas pneumonia. Probable fungemia, currently on Eraxis. Chronic hypoxemic and hypercapnic respiratory failure, ventilator dependent, on a home ventilator, S/P tracheostomy. Left lower lobe atelectasis, possible pneumonia, with pseudomonal infection. History of severe tracheal stenosis, S/P tracheostomy. History of recurrent pneumonia, involving the left lower lobe. Tracheobronchomalacia. History of DVT. History of CVA. History of right below-knee amputation. Previous history of asystole/cardiac arrest, 2021. History of Crohn's disease, S/P enterocutaneous fistula, diverting ileostomy. Plan: Plan dated August 31, 2024. The patient is seen today in room 252. The patient's weight had on fluids, and the lactated Ringer's is cut back to 40 cc an hour. The patient will get 1 dose of Lasix IV push. Ventilator settings are noted. No blood gases today. It was apparently refused by the patient. Doppler of the left upper extremity was negative for DVT. Will check a procalcitonin level. The patient continues on norepinephrine at 8 mcg/min. He is getting TPN at 91 cc an hour. We will continue to follow make recommendations along the way. Labs, x-rays, and all medications are reviewed. Prognosis is certainly guarded. Dictation was produced using [employer] software. Please excuse any grammatical, word or spelling errors. Plan dated September 05, 2024. The patient is seen today in room 252. He is connected to his home mechanical ventilator. Settings of the same and include volume assist-control, rate 20, tidal volume 450, FiO2 45%, PEEP of 5. The patient is getting TPN at 65 cc an hour, norepinephrine has been weaned down to 1 mcg/min. He is getting lactated Ringer's at 50 cc an hour. He continues on Avycaz and tobramycin. We will continue to follow make recommendations. The patient also continues on hydrocortisone, for relative adrenal insufficiency. Prognosis is certainly guarded. We will continue to follow. Dictation was produced using [employer] software. Please excuse any grammatical, word or spelling errors. Plan dated September 06, 2024. The patient is seen today in room 252. He continues on mechanical ventilation. The patient is having increased secretions. Will add a scopolamine patch. He continues on Avycaz, and tobramycin. In addition, he continues on TPN at 65 cc an hour, and lactated Ringer's at 50 cc an hour. All labs, x-rays, and medications are reviewed. Chest x-ray is unchanged. We will continue to follow make recommendations. Prognosis is guarded. Dictation was produced using [employer] software. Please excuse any grammatical, word or spelling errors. Plan dated September 21, 2024. The patient is again seen today in room 252, with presumed ongoing sepsis. The patient has norepinephrine on standby, for blood pressure support, and recently was maxed out on multiple vasopressors. Currently, the patient continues on Eraxis, and vancomycin. The patient also continues on TPN at 75 cc an hour, propofol at 50 mcg/kg/min. All labs, x-rays, medications are reviewed. The patient's overall prognosis remains very poor. We will continue to follow. He remains a full code. Dictation was produced using [employer] software. Please excuse any grammatical, word or spelling errors. Plan dated September 22, 2024. The patient was seen to get her up to 52. We were able to place a right radial art line in the patient. There was good blood return from the arterial line, although the waveform was dampened. The patient continues on appropriate medications, including propofol at 50 mcg/kg/min, norepinephrine at 3 mcg/min. The patient is also getting TPN at 75 cc an hour. He is receiving hemodialysis today. He continues on Eraxis. After hemodialysis, the patient will have a ar terial blood gas. Additional recommendations and suggestions are forthcoming. Prognosis is guarded. All labs, x-rays, and medications are reviewed. We will continue to follow the patient, make recommendations. Dictation was produced using [employer] software. Please excuse any grammatical, word or spelling errors. Plan dated September 23, 2024. The patient is again seen today in room 252. The patient's blood gases show pO2 100, pCO2 44, pH of 7.31. Patient continues on norepinephrine at 5.6 mcg/min, propofol at 50 mcg/kg/min. The patient is getting TPN at 33 cc an hour. The patient continues on Eraxis. He had hemodialysis yesterday. All labs, x-rays, and medications are reviewed. The patient remains a full code. Will continue to follow the patient, make recommendations along the way. Prognosis is guarded. Dictation was produced using [employer] software. Please excuse any grammatical, word or spelling errors. Plan dated September 24, 2024. According to the nurses, the patient had an uneventful night. He continues on volume assist-control, with a rate of 36, tidal volume 400, FiO2 40%, PEEP of 12. Blood gases are adequate with a pO2 of 100, pCO2 of 42, pH of 7.39. The patient continues on sedation with propofol at 50 mcg/kg/min. For his lower blood pressure, he is on norepinephrine at 4 mcg/min. He continues on parenteral nutrition, with TPN at 33 cc an hour. He also continues on Eraxis for fungemia. Hemoglobin is 7. No transfusion at this time. All labs, x-rays, and medications are reviewed. We will continue to follow the patient, make recommendations. The patient's overall prognosis remains poor. Dictation was produced using [employer] dictation software. Please excuse any grammatical, word or spelling errors. Plan dated September 25, 2024. The patient is seen today in room 252. He continues on Eraxis. The patient continues on mechanical ventilation. Labs, x-rays, and medications are reviewed. We will continue to follow the patient, make recommendations. He is getting TPN at 33 cc an hour, and propofol at 30 mcg/kg/min. He continues on norepinephrine at about 3 mcg/min. He is having hemodialysis today. The goal is to remove somewhere between 2 to 3 L of fluid, pending his blood pressure response. The patient will be dropped from 12 cm of water down to 8 cm of water. Blood gases have been reviewed. All labs, x-rays, and medications have been reviewed. We will continue to follow. Prognosis is guarded. Dictation was produced using [employer] software. Please excuse any grammatical, word or spelling errors. Plan dated September 26, 2024. The patient is seen today, in room 252. The patient remains on mechanical ventilation. Blood gases are reasonable. All labs, x-rays, and medications are reviewed. The patient continues on propofol at 20 mcg/kg/min, and norepinephrine at roughly 2 mcg/min. We will continue to follow make recommendations. He is being nursed with TPN at 33 cc an hour. 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 Prognosis is guarded. Dictation was produced using [employer] software. Please excuse any grammatical, word or spelling errors. Plan dated September 27, 2024. The patient was seen today in room 252. She remains on mechanical ventilation. Blood gases are reviewed. PO279, VKX378, pH of 7.54. Labs, x-rays, and all medications are reviewed. He continues on propofol at 20 mcg/kg/min, and a small dorsal norepinephrine at 2 mcg/min. Is getting TPN at 33 cc an hour. He continues on Eraxis. He had hemodialysis yesterday. 3 L was removed. All labs, x-rays, and medications are reviewed. We will continue to follow the patient, make recommendations. Dictation was produced using Dragon dictation software. Please excuse any grammatical, word or spelling errors. Time with Patient: Greater than 30
[2024-09-27 11:34] LABS: Glucose,Whole Blood 96 mg/dL (70-110)
--- NOTE | 2024-09-27 12:21 | P.PN ---
Subjective Progress Note Date: 09/27/24 Patient is seen for follow-up for acute kidney injury. Started hemodialysis on 09/22/2024 for volume overload and worsening acute kidney injury with oliguria. Awake on vent, tolerated HD yesterday. Patient is on the vent he is awake. Examination of the heart S1 and S2 Tracheostomy noted Examination of the lungs bilateral breath sounds are heard Abdomen is distended Examination of lower extremities shows right BKA and significant edema in the left leg as well as scrotal edema noted Objective - Vital Signs Vital signs: Vital Signs Temp 98.6 F 09/27/24 08:00 Pulse 59 L 09/27/24 09:15 Resp 37 H 09/27/24 09:15 BP 100/48 09/27/24 09:15 Pulse Ox 96 09/27/24 09:15 FiO2 30 09/27/24 08:00 Intake & Output 09/26/24 09/27/24 09/27/24 18:59 06:59 18:59 Intake Total 1280.688 772.601 139.701 Output Total 7335 1715 5 Balance -6054.312 -942.399 134.701 Weight 107.2 kg Intake: IV 637 518 138 0.9 KVO 130 110 30 Pressure Bag 78 45 9 TPN 429 363 99 Intake, IV Titration 143.688 254.601 1.701 Amount Norepinephrine 8 mg In 19.502 54.601 1.701 Sodium Chloride 0.9% 250 ml @ 0.03 MCG/KG/MIN 6. 513 mls/hr IV .Q24H ANNIE Rx#:[id number] propofoL 1,000 mg In 124.186 200 Empty Bag 1 bag @ 50 MCG/ KG/MIN 32.34 mls/hr IV . Q3H6M ANNIE Rx#:[id number] Hemodialysis 500 Output: Drainage 900 Medial Abdomen 900 Urine 35 15 5 Stool 800 800 Hemodialysis 3500 Hemodialysis Net Amount 3000 Other: Voiding Method Indwelling Catheter Indwelling Catheter Indwelling Catheter ABP, PAP, CO, CI - Last Documented Arterial Blood Pressure 37/31 - Labs CBC & Chem 7: 09/27/24 05:40 09/27/24 05:40 Labs: Abnormal Lab Results - Last 24 Hours (Table) 09/27/24 09/27/24 09/27/24 Range/Units 05:36 05:40 05:40 RBC 2.94 L (4.40-5.60) 10*6/uL Hgb 7.8 L (13.0-17.0) g/dL Hct 24.8 L (39.6-50.0) % MCH 26.5 L (27.0-32.0) pg MCHC 31.5 L (32.0-37.0) g/dL Immature Gran # 0.08 H (0.00-0.04) 10*3/uL Lymphocytes # 0.84 L (0.90-5.00) 10*3/uL ABG pH 7.54 H (7.35-7.45) ABG pCO2 34 L (35-45) mmHg ABG pO2 79 L (83-108) mmHg ABG HCO3 30 H (21-25) mmol/L ABG Total CO2 31 H (19-24) mmol/L ABG O2 Saturation 97.2 H (94-97) % Hemoglobin 8.1 L (13.0-17.5) gm/dL Sodium 131 L (137-145) mmol/L Potassium 3.4 L (3.5-5.1) mmol/L Chloride 97 L (98-107) mmol/L Calcium 8.1 L (8.4-10.2) mg/dL Assessment and Plan Assessment: 1. Acute kidney injury secondary to ATN secondary to septic shock and vancomycin toxicity. Vancomycin level 49.3 on 09/19/2024. Patient remains oliguric with significant volume overload noted. Started hemodialysis on 09/22/2024. Receiving daily treatments for volume overload 2. Septic shock secondary to pneumonia and fungemia. 3. Acute blood loss anemia s/p PRBC 4. Volume overload. 5. Chronic hypoxic and hypercapnic respiratory failure, home ventilator dependent. 6. History of cardiac arrest. 8. Status post right BKA. Plan: Dialysis yesterday 3L removed, urine output remains low Check on tomorrow for evaluation of further need daily dialysis Continue antibiotics and antifungal treatment as per ID
--- NOTE | 2024-09-27 14:36 | P.PN ---
Subjective Progress Note Date: 09/27/24 Principal diagnosis: Reason for follow-up is sepsis and pneumonia/candidemia Patient is a 49-year-old male with a past medical history significant for CVA TIA DVT pneumonia history of complicated Crohn's disease in this patient who did have multiple abdominal surgeries patient also have a tracheostomy has been brought to the hospital with Generalized weakness did have a fever concerning for pneumonia on today's evaluation that is 09/27/2024, Patient is afebrile patient is currently intubated on the vent FiO2 at 30% no significant purulent secretions through the ET patient not requiring any pressor support no other changes reported by the nursing staff as well as mother at the bedside. Patient white count 6.99, creatinine 0.87 blood culture from 09/22/2024 remains to be negative Objective - Vital Signs Vital signs: Vital Signs Temp 98.6 F 09/27/24 12:00 Pulse 74 09/27/24 14:00 Resp 36 H 09/27/24 14:00 BP 119/62 09/27/24 14:00 Pulse Ox 96 09/27/24 14:00 FiO2 30 09/27/24 12:00 Intake & Output 09/26/24 09/27/24 09/27/24 18:59 06:59 18:59 Intake Total 1280.688 772.601 961.768 Output Total 7335 1715 465 Balance -6054.312 -942.399 496.768 Weight 107.2 kg Intake: IV 637 518 868 0.9 KVO 130 110 80 Anidulafungin 100 mg In 100 Sodium Chloride 0.9% 100 ml @ 84 mls/hr IVPB DAILY ANNIE Rx#:[id number] Magnesium Sulfate-D5w Pmx 200 1 gm In Dextrose/Water 1 100ml.bag @ 100 mls/hr IVPB Q1H ANNIE Rx#: [id number] Potassium Chloride 20 meq 200 In Water For Injection 1 100ml.bag @ 50 mls/hr IVPB Q2H ANNIE Rx#: [id number] Pressure Bag 78 45 24 TPN 429 363 264 Intake, IV Titration 143.688 254.601 93.768 Amount Norepinephrine 8 mg In 19.502 54.601 12.918 Sodium Chloride 0.9% 250 ml @ 0.03 MCG/KG/MIN 6. 513 mls/hr IV .Q24H ANNIE Rx#:[id number] propofoL 1,000 mg In 124.186 200 80.85 Empty Bag 1 bag @ 50 MCG/ KG/MIN 32.34 mls/hr IV . Q3H6M ANNIE Rx#:[id number] Hemodialysis 500 Output: Drainage 900 Medial Abdomen 900 Urine 35 15 15 Stool 800 800 450 Hemodialysis 3500 Hemodialysis Net Amount 3000 Other: Voiding Method Indwelling Catheter Indwelling Catheter Indwelling Catheter ABP, PAP, CO, CI - Last Documented Arterial Blood Pressure 37 - Exam GENERAL DESCRIPTION: Middle-age male intubated on the vent RESPIRATORY SYSTEM: Unlabored breathing , decreased breath sounds at bases HEART: S1 S2 regular rate and rhythm , ABDOMEN: Soft , no tenderness EXTREMITIES: Swelling to the leg - Labs CBC & Chem 7: 09/27/24 05:40 09/27/24 05:40 Labs: Abnormal Lab Results - Last 24 Hours (Table) 09/27/24 09/27/24 09/27/24 Range/Units 05:36 05:40 05:40 RBC 2.94 L (4.40-5.60) 10*6/uL Hgb 7.8 L (13.0-17.0) g/dL Hct 24.8 L (39.6-50.0) % MCH 26.5 L (27.0-32.0) pg MCHC 31.5 L (32.0-37.0) g/dL Immature Gran # 0.08 H (0.00-0.04) 10*3/uL Lymphocytes # 0.84 L (0.90-5.00) 10*3/uL ABG pH 7.54 H (7.35-7.45) ABG pCO2 34 L (35-45) mmHg ABG pO2 79 L (83-108) mmHg ABG HCO3 30 H (21-25) mmol/L ABG Total CO2 31 H (19-24) mmol/L ABG O2 Saturation 97.2 H (94-97) % Hemoglobin 8.1 L (13.0-17.5) gm/dL Sodium 131 L (137-145) mmol/L Potassium 3.4 L (3.5-5.1) mmol/L Chloride 97 L (98-107) mmol/L Calcium 8.1 L (8.4-10.2) mg/dL Assessment and Plan (1) Pneumonia Current Visit: Yes Status: Acute Code(s): J18.9 - PNEUMONIA, UNSPECIFIED ORGANISM SNOMED Code(s): 566147604 (2) Sepsis Current Visit: Yes Status: Acute Code(s): A41.9 - SEPSIS, UNSPECIFIED ORGANISM SNOMED Code(s): 59084336 (3) Candidemia Current Visit: Yes Status: Acute Code(s): B37.7 - CANDIDAL SEPSIS SNOMED Code(s): 714562938 Plan: 1patient is a hospital with sepsis in this patient who did have fever tachyca rdia elevated lactic acid upon meeting criteria for SIRS/sepsis source likely pneumonia 2-patient is status post bronchoscopy lavage results currently growing Pseudomonas that is resistant to Avycaz and corynebacterium, sensitivity on corynebacterium is pending 3-patient with Pseudomonas pneumonia for the patient has completed his antibiotic therapy 4-patient did have candidemia source is likely left chest wall PICC line which has been discontinued has been sent for the culture central line placed by deputy director of nursing, blood culture repeat on 09/18/2024 positive blood culture repeat 09/22/2024 so far negative. 5patient remains to be afebrile white count has been normal repeat blood culture from 09/22/2024 has been negative patient agreeable to get a new PICC line and also recommend to discontinue the central line that was placed and the patient did have fungemia, duration of Eraxis will be total of 2 weeks from the negative blood culture, that would make last day of Eraxis 10/06/2024 Dictation was produced using [employer] dictation software. please excuse any grammatical, word or spelling errors. Time with Patient: Less than 30
--- NOTE | 2024-09-27 17:23 | P.PN ---
Progress Note - Text Progress Note Date: 09/27/24 Chief Complaint: Short of breath 49-year-old patient, follows with Dr. Murcia History of paraplegia, home vent at night, tracheostomy multiple admissions to the ICU for recurrent pneumonia. Patient's previous bronchial cultures been positive for Pseudomonas. He was discharged recently on IV cefepime. Also has a history of Crohn's disease with previous colectomy diverting ileostomy. History of DVT for which patient is on subcu Lovenox. Also had drug-resistant MRSA Pseudomonas. Patient currently does not have areas significant trach secretions. He has continues TPN. Has a right BKA. He does have slight movement in the right hand. Able to follow commands by nodding his head. Answering questions. He is scared by his elder son open. I was also the DPOA. August 30: Overnight patient started having more secretions through the tracheostomy. Vancomycin was added. Also blood pressure running low patient was put on Levophed drip. Otherwise sinus rhythm. Patient remains on the ventilator. Will also send off stool for C. difficile. Also patient IV cefepime. Getting TPN. August 31: ICU. Patient had positive fluid balance. Was given IV Lasix earlier. Remains on Levophed. Spiking fevers. Getting TPN. Stool negative for C. difficile. Patient is growing MDRO Pseudomonas aeruginosa. ID is ordered IV Zerbaxa. Which is currently not available. Patient's friend is visiting him in the ICU. Light trach secretion September 01: ICU. On the ventilator. FiO2 45%. PEEP of 5. Continues to have light trach secretions. Sputum cultures again growing Pseudomonas. Zerbaxa was obtained and resumed. Blood pressure running low. On Levophed. Patient's younger son at the bedside. Colostomy working fine. Has been spiking fevers. Cooling blanket. Ice packs. September 02: ICU. Ventilator FiO2 45%. PEEP of 5. Continues to have some trach secretions. IV Zerbaxa IV tobramycin. TPN lipids to continue. Also Levophed. Patient started cooling blankets since yesterday for temperatures. Along with the nurse speech therapy records were reviewed from last few admissions. Patient with multiple MBS and bedside swallow eval. No trouble with swallowing. Patient put on a chopped diet. Thin liquids. Patient did spike a fever of 101.7 earlier today. Low ionized calcium. IV gluconate given. September 03: ICU. On ventilator FiO2 45%. PEEP of 5. Mild trach secretions. Getting IV TPN lipids. IV tobramycin. Zerbaxa was substituted to Avycaz. By ID. No fever per se since yesterday. For blood pressure patient is also on Levophed and vasopressin. September 04: ICU. On ventilator FiO2 45%. PEEP of 5. Clear trach secretions. Getting IV TPN lipids. IV tobramycin. And IV Avycaz. Remains afebrile.. On Levophed and vasopressin. Awake. 09/06/2024 Patient is seen and evaluated in ICU; remains on mechanical ventilator, actually his home ventilator, with settings of volume assist-control, rate 20, tidal volume 450, FiO2 45%, PEEP of 5. - patient has been refusing blood; no ABGs to. He is getting lactated Ringer's at 50 cc an hour, TPN at 65 cc an hour. - patient remains on the same antibiotics. - Labs reviewed which reveal white count 5.21, hemoglobin 7.9, hematocrit 27.5, and platelet count 64,000. Sodium 141, potassium 3.5, chlorides 102, CO2 32, BUN 25, and creatinine 0.35. Glucose is 152. Calcium is 8. Albumin is 2.1. -Chest x-ray is largely unchanged. Critical care managing mechanical ventilation; recommending to add scopolamine patch for increased secretion -Patient remains on Avycaz and tobramycin - Continue with current TPN 09/07 Patient remains in the ICU lethargic. He is s/p tracheostomy Overnight he was more hypoxic they have to increase PEEP to 8. Also has a lot of secretions when needed for secretions suctioning to try to become apneic per Staff. Patient currently receiving Avycaz and tobramycin. on TPN also 09/08 Patient remains in the ICU awake and alert status post tracheostomy. He has contractures of both upper and lower extremities He is complaining from pain in his lungs. He is status post flexible bronchoscopy and bronchoalveolar lavage yesterday. He has previous sputum culture positive for Pseudomonas currently covered with ceftazidime and tobramycin. He is also on Lovenox 90 mg 09/09 Patient still in the ICU on mechanical ventilation via tracheostomy. PEEP is 8.0 as is yesterday Also he spiked little fever to 100.7. IV vancomycin is added to tobramycin and ceftazidime He is getting also bronchoscopy follow-up culture results 09/10 Patient feels clinically the same, he still getting breathing via mechanical ventilation through his tracheostomy with PEEP of 8. Patient feels he is required suctioning through his tracheostomy tube. He denies chest pain or pain anywhere else he can communicate by head signs and gestures. Hemodynamically stable and afebrile hemoglobin 7.4 platelet count 73 Glucose is controlled potassium 3.3 He remains on broad-spectrum antibiotic Rocephin at this time tobramycin and IV vancomycin added yesterday because he had low-grade fever. He is getting TPN. IV fluid Ringer lactate was stopped and patient was started on IV Lasix 20 mg 3 times a day continue with therapeutic dose of Lovenox as well 09/11 Patient remains in the ICU Remains on mechanical ventilation via tracheostomy He status post bronchoalveolar lavage 2 days ago, culture is growing Pseudomonas aeruginosa and corynebacterium Patient remains on broad-spectrum antibiotics with IV vancomycin, tobramycin, ceftazidime On IV Lasix also is on therapeutic dose of Lovenox 90 mg twice daily No IV fluids 09/12 Patient remains in the ICU Clinically close to what he was over the last 2 days still getting oxygen via his tracheostomy He remains on broad-spectrum antibiotic with Ceftin this time and IV vancomycin. Also he is on IV Lasix 20 mg and therapeutic dose of Lovenox. 09/13 Patient remains in the ICU on mechanical ventilation via tracheostomy Patient looks better today, he breathing better Less secretion Fentanyl patch increased 09/14. Patient seen and examined. Patient continues to be on mechanical ventilation via trach mask. Currently on TPN. Currently on IV Zerbaxa and vancomycin 09/15. Patient seen and examined.Vital signs done showed the patient overnight, heart rate 106, blood pressure 107/40, currently on ventilation. Labs reviewed showed WBC 7.27, hemoglobin 7.5, sodium 148 on potassium 4.3, BUN 23, creatinine 0.47 09/16. Patient seen and examined labs reviewed showing WBC 5.45, hemoglobin 9.6, platelet count 131, sodium 146, potassium 4.1, BUN 20, creatinine 0.47. Continue small amount of Levophed. Currently on Zerbaxa and vancomycin. Currently on TPN September 17: ICU. Patient has taken a turn for the worse today. Significant thick white secretions from the trach. Sinus rhythm. Receiving TPN. Patient is on Levophed and vasopressor. Rather high dose. FiO2 [address] of 10. [address]. Ho earlier spoke to the patient/family. Remains full code September 18: ICU. Intubated FiO2 70 PEEP of 12. Sinus rhythm. Drips include IV propofol at 50 and Levophed at 0.13. Patient is off vasopressin. Patient secretions. Family at the bedside. September 19: ICU. Intubated. FiO2 50 and a PEEP of 12. Drips include IV Levophed and propofol. Also started on Lasix drip 10 mg an hour yesterday. Secretions present. September 20: ICU. Intubated. FiO2 50 and a PEEP of 12. Hemoglobin 6.3. Secondary to blood being given. Patient been on and off Levophed. On propofol. Lipids have been held. Continues with TPN. Lasix drip was discontinued. Lovenox has been held because of low hemoglobin. Unable anemia is felt to be combination of regular blood draws and possible element element of hemolysis from all the infection. No dark stool. Family at the bedside September 21: ICU. Intubated. Received 2 units of blood yesterday. Hemoglobin 7.6 today. Per nephrology renal replacement therapy. Dialysis access placed by Dr. Cadena. Patient earlier today on Levophed. Propofol. Getting TPN. Sinus rhythm. Urine output decreased September 22: ICU. Intubated. FiO2 15 of PEEP of 12. Seen earlier today. Dialysis being started. Been on IV Levophed propofol. Sinus rhythm. TPN. Sinus rhythm. September 23: ICU. Intubated. Due for another dialysis today. Saw the patient earlier today. Remains on IV Levophed propofol. Sinus rhythm. TPN. On fentanyl patch. September 24: ICU. Intubated. FiO2 40 and PEEP of 12. Remains on IV Levophed and propofol. IV TPN. Decrease trach secretions. IV antibiotics. Was due for dialysis earlier today. September 25: ICU. Intubated. FiO2 30%. Patient getting IV Levophed and propofol. IV TPN. Dialysis today. Receiving IV antibiotics. Does opens eyes occasionally. Some commands per nursing. September 26: ICU. Intubated. FiO2 30 and a PEEP of 8. Had 2 L hemodialysis removed yesterday. Getting hemodialysis today. Aiming for 2 to 3 L. Patient is on propofol. Currently Levophed on hold. Getting TPN. Patient is actually awake and following commands. Sinus rhythm. September 27: ICU. Intubated. FiO2 39 PEEP of 8. No dialysis today. Remains on IV Levophed propofol. TPN. There is a bedside. Patient asked me how is he doing. Had a lengthy information in terms of his guarded prognosis. Did tell him it is his choice about how he wishes to proceed. He needs to decide between treatment benefits versus in the suffering because of that entails from treatment and his recurrent infections etc. Especially in the context of decreased activity. Kidney failure, respiratory failure etc. Active Medications Albuterol/Ipratropium (Ipratropium-Albuterol 3 Ml Neb) 3 ml INHALATION RT-Q4H PRN PRN Reason: shortness of breath Last Admin: 09/26/24 07:46 Dose: 3 ml Artificial Tears (Artificial Tears-Hypromellose Drops 15 Ml Btl) 1 drops BOTH EYES QID PRN PRN Reason: Dry Eye(s) Last Admin: 09/04/24 12:52 Dose: 1 drops Chlorhexidine Gluconate (Chlorhexidine Gluconate 15 Ml Cup) 15 ml MUCOUS MEM BID ANNIE Last Admin: 09/27/24 09:24 Dose: 15 ml Dextrose/Water (Dextrose 50% Syringe 50 Ml) 25 ml IVP PER PROTOCOL PRN; Protocol PRN Reason: Hypoglycemia Dextrose/Water (Dextrose 50% Syringe 50 Ml) 50 ml IVP PER PROTOCOL PRN; Protocol PRN Reason: Hypoglycemia Fentanyl (Fentanyl 100mcg/Hr Patch) 1 patch TRANSDERM Q72H ANNIE; Protocol Last Admin: 09/25/24 10:30 Dose: 1 patch Hydrocortisone Sodium Succinate (Hydrocortisone Succinate 100 Mg/2 Ml Vial) 50 mg IV Q12HR ANNIE Last Admin: 09/27/24 09:25 Dose: 50 mg Hydromorphone HCl (Hydromorphone 1 Mg/Ml 1 Ml Syringe) 1 mg IVP Q3HR PRN PRN Reason: Moderate Pain (Scale 4 to 6) Last Admin: 09/27/24 06:16 Dose: 1 mg Anidulafungin 100 mg/ Sodium (Chloride) 130 mls @ 84 mls/hr IVPB DAILY ANNIE; Protocol Last Admin: 09/27/24 09:33 Dose: 84 mls/hr Propofol 1,000 mg/ IV Solution 100 mls @ 32.34 mls/hr IV .Q3H6M ANNIE; Protocol Last Admin: 09/27/24 16:16 Dose: Not Given Norepinephrine Bitartrate 8 mg (/ Sodium Chloride) 258 mls @ 6.513 mls/hr IV .Q24H ANNIE; Protocol Last Titration: 09/27/24 09:40 Dose: 0.01 mcg/kg/min, 2.171 mls/hr Parenteral Vitamin Supplement 10 ml/ Zinc/Copper/Manganese/Selenium 1 ml/ Sodium Acetate 80 meq/ Sodium Chloride 32 meq / Calcium Gluconate 0.5 gm/Potassium Chloride 14 meq/Magnesium Sulfate 0.5 gm/Amino Acids/Dextrose 1,072 mls @ 33 mls/hr IV .Q24H [facility] Stop: 09/28/24 05:59 Last Admin: 09/27/24 05:25 Dose: 33 mls/hr Parenteral Vitamin Supplement 10 ml/ Zinc/Copper/Manganese/Selenium 1 ml/ Sodium Acetate 76 meq/ Sodium Chloride 40 meq / Calcium Gluconate 0.5 gm/Potassium Chloride 20 meq/Magnesium Sulfate 0.75 gm/Sodium Phosphate 6 mmol/ Amino Acids/Dextrose 1,077.5 mls @ 33 mls/hr IV .Q24H ANNIE Insulin Human Lispro (Insulin Lispro (Humalog) 100 Unit/Ml 10 Ml Vl) 0 unit SQ Q6HR ANNIE; Protocol Last Admin: 09/27/24 12:04 Dose: Not Given Lorazepam (Lorazepam 1 Mg/0.5 Ml Vial) 0.5 mg IV Q6HR PRN PRN Reason: Anxiety Last Admin: 09/15/24 18:26 Dose: 0.5 mg Miscellaneous Information (Pneumonia Protocol Utilized 1 Each Misc) 1 each PO ONCE PRN PRN Reason: Per Protocol Miscellaneous Information (Potassium Replacement Protocol 1 Each Misc) 1 each MISCELLANE DAILY PRN; Protocol PRN Reason: Per Protocol Miscellaneous Information (Magnesium Replacement Protocol 1 Each Misc) 1 each MISCELLANE DAILY PRN; Protocol PRN Reason: Per Protocol Naloxone HCl (Naloxone 0.4 Mg/Ml 1 Ml Vial) 0.2 mg IV Q2M PRN PRN Reason: Opioid Reversal Nystatin (Nystatin 100,000 Unit/Gm Powd 15 Gm) 1 applic TOPICAL BID ANNIE; Protocol Last Admin: 09/27/24 09:25 Dose: 1 applic Ondansetron HCl (Ondansetron 4 Mg/2 Ml Vial) 4 mg IVP Q6HR PRN PRN Reason: Nausea And Vomiting Last Admin: 09/01/24 19:41 Dose: 4 mg Pantoprazole Sodium (Pantoprazole 40 Mg/10 Ml Vial) 40 mg IV DAILY ANNIE Last Admin: 09/27/24 09:25 Dose: 40 mg Petrolatum (Zinc Oxide Paste (Z-Guard) 1 Applic) 1 applic TOPICAL BID PRN; Protocol PRN Reason: Wound Healing Social history: Patient started smoking at the age of [age] 1 pack a day stopped in 2017. Nonambulatory. Is cared by his son over. Who is also the DPOA Physical examination: VITAL SIGNS: 98.6, 72, 36, one 1 x 47, 97% on the ventilator GENERAL:, Eyes open EYES: Pupils equal. Conjunctiva loan l. HEENT: External appearance of nose and ears normal, oral cavity dry NECK: JVD unable to assess; masses not palpable. Tracheostomy HEART: First and second heart sounds are normal; no edema. LUNGS: Respiratory rate increased, decreased breath sounds, some crackles ABDOMEN: Soft, nontender, liver spleen not palpable, no masses palpable. Double barrel ostomy. PSYCH: Following simple commands MUSCULOSKELETAL: Right BKA. Left foot drop. Left hand contracture. Right hand also with contracture but able to have some movements NEUROLOGICAL: Cranial nerves grossly intact; no facial asymmetry, slight movement in the right arm. L INVESTIGATIONS, reviewed in the clinical context: September 27: White count 6.9 hemoglobin 7.8 potassium 3.4 creatinine 0.87 September 26: White count 7.3 hemoglobin 7.5 platelets 204 potassium 3.4 creatinine 0.87 September 25: White count 7.4 hemoglobin 7.6 platelets 194 potassium 3.5 creatinine 1.06 September 24: White count 6.6 hemoglobin 7 platelets 158 potassium 4 BUN 58 creatinine 1.52 phosphorus 6.2 th: White count 9.0 hemoglobin 7.7 platelets 155 potassium 4.5 creatinine 1.69 September 22: White count 7.4 hemoglobin 7.3 platelets 114 potassium 5.4 BUN 110 creatinine 1.79 September 18: White count 14.9 hemoglobin 7.6 ABG show pH of 7.2PCO2 of 68P O2 was 77 potassium was 6.1 repeat 5.2 creatinine 0.82 September 17: White count 20 hemoglobin 8.5 platelets 199 potassium 4.2 BUN 25 creatinine 0.4. ABG: pH 7.17 pCO2 79 PO277. September 02: White count 3.6 hemoglobin 9.7 platelets 130 potassium 3.9 BUN 23 creatinine 0.36 ionized calcium 4.3 TSH 2.7 Sputum culture: Pseudomonas aeruginosa: Sensitive to Zosyn, tobramycin, ceftazidime Sputum culture: Pseudomonas aeruginosa August 30: White count 3.5 hemoglobin 10.0 platelets 133 potassium 3.5 creatinine 0.36 August 29, 2024: White count 6.2 hemoglobin 12.3 platelets 216 sodium 128 potassium 3.1 BUN 50 creatinine 0.46 lactic acid 2.1 calcium 10.8 phosphorus 3.0 troponin I 0.016 UA: Negative for nitrite Influenza type A, type B, RSV, SARS-CoV-2: Not detected EKG tracing personally reviewed by me-normal sinus rhythm Chest x-ray film personally reviewed by me-right basilar infiltrate Previous labs: Sputum culture July 20, 2024: Pseudomonas aeruginosa Assessment plan: - basal pneumonia. Previous admission sputum was positive for Pseudomonas aeruginosa-:: Slow to respond Has received different antibiotics. Currently: Aniedulefungin IV, IV ceftolozane tazobactam, IV vancomycin Being followed by pulmonary, and ID - Fluid overload Had received Lasix drip - Acute kidney injury from ATN from septic shock. Also consider vancomycin toxicity. Oliguric. Volume overload. Dialysis catheter placed by Dr. Cadena-September 21. First dialysis was on September 22.-Has been getting daily dialysis. No dialysis today - Septic shock: Levophed back on board - Acute on chronic hypoxic and hypercapnic respiratory failure, vent dependent at night at home: Slow to respond On ventilator support. Propofol - Tracheostomy with trach collar -Acute normocytic anemia of chronic disease and hospital-acquired anemia from blood draws and possible hemolysis from infection 2 units of blood given September 20. - Thrombocytopenia likely from sepsis Follow - Right below-knee amputation - Chronic quadriparesis. Including left foot drop. Left arm contracture. Some right hand contracture. Some movement in the right arm - Crohn's disease with double barrel ostomy bag in place since 09/2021 - TPN and lipids Lipids have been held during propofol - Full code - DPOA, haylee PENA Lengthy talk with the patient. Prognosis guarded. Past Medical History Past Medical History: CVA/TIA, Deep Vein Thrombosis (DVT), Pneumonia Additional Past Medical History / Comment(s): Hx CVA in 2012, DVT R arm, Crohns. colostomy Bag placed in 09/2021. History of Any Multi-Drug Resistant Organisms: MRSA, Other MDRO Date of last positivie culture/infection: 07/20/24-Other MDRO; 12/14/23-MRSA MDRO Source:: Other MDRO - sputum, BAL; MRSA- nasal Past Surgical History: Bowel Resection, Cholecystectomy, Orthopedic Surgery Additional Past Surgical History / Comment(s): R BKA, trach with chronic home vent Past Anesthesia/Blood Transfusion Reactions: No Reported Reaction Additional Past Anesthesia/Blood Transfusion Reaction / Comment(s): recalled from previous admission Smoking Status: Never smoker
[2024-09-27 18:07] LABS: Glucose,Whole Blood 89 mg/dL (70-110)
[2024-09-27] MEDS: POTASSIUM CHLORIDE 20 MEQ in WATER FOR INJECTION 1 100ML.BAG IVPB STA (18:56)
[2024-09-28 00:10] LABS: Glucose,Whole Blood 97 mg/dL (70-110)
[2024-09-28 05:14] LABS: ABG HCO3 28 mmol/L (21-25); ABG PCO2 30 mmHg (35-45); ABG PO2 70 mmHg (83-108); ABG TCO2 29 mmol/L (19-24)
[2024-09-28 05:16] LABS: ABG PH 7.57 (7.35-7.45); Allen Test Performed? no
[2024-09-28 05:24] LABS: Glucose,Whole Blood 86 mg/dL (70-110)
[2024-09-28 05:46] LABS: Basophils # (A) 0.00 10*3/uL (0.00-0.10); Basophils % (A) 0.0 %; Eosinophils # (A) 0.04 10*3/uL (0.04-0.35); Eosinophils % (A) 0.7 %; HCT 23.1 % (39.6-50.0); HGB 7.2 g/dL (13.0-17.0); Lymphocytes # (A) 0.96 10*3/uL (0.90-5.00); Lymphocytes % (A) 16.0 %; MCH 26.4 pg (27.0-32.0); MCHC 31.2 g/dL (32.0-37.0); MCV 84.6 fL (80.0-97.0); Monocytes # (A) 0.43 10*3/uL (0.20-1.00); Monocytes % (A) 7.2 %; Neutrophils # (A) 4.52 10*3/uL (1.80-7.70); Neutrophils % (A) 75.1 %; Platelet Count 206 10*3/uL (140-440); RBC 2.73 10*6/uL (4.40-5.60); RDW 21.7 % (11.5-14.5); WBC 6.01 10*3/uL (4.50-10.00)
[2024-09-28] MEDS: [UNRECOGNIZED DRUG - REMARK] IV SCH (05:50)
[2024-09-28 06:00] LABS: African American GFR (CKD) 68 (>60 ml/min/1.73 sqM); Anion Gap 8 mmol/L; Blood Urea Nitrogen 28 mg/dL (9-20); Calcium 8.0 mg/dL (8.4-10.2); Carbon Dioxide 24 mmol/L (22-30); Chloride 97 mmol/L (98-107); Glucose 78 mg/dL (74-99); Magnesium 1.9 mg/dL (1.6-2.3); Non-African American GFR(CKD) 59 (>60 ml/min/1.73 sqM); Potassium 4.4 mmol/L (3.5-5.1); Sodium 129 mmol/L (137-145)
--- NOTE | 2024-09-28 08:38 | XR ---
EXAMINATION TYPE: XR chest 1V portable DATE OF EXAM: 09/28/2024 5:34 AM COMPARISON: 09/27/2024 CLINICAL INDICATION: Male, 49 years old with history of Vent depenent resp failure, , FINDINGS: Right subclavian CVC tip within the upper right atrium. Tracheostomy cannula. Surgical clips at the b ase of the right neck. Patient is rotated toward the left altering the normal cardiac mediastinal con tours. Worsening pleural parenchymal opacity at the right lower lung obscuring the right heart margin . Background diffuse interstitial opacities. Retrocardiac opacity persists as well. IMPRESSION: 1. Ongoing diffuse interstitial infiltrates versus interstitial edema. 2. Worsening airspace disease at the right lower lung. Similar retrocardiac atelectasis and/or consol idation. [facility], , 09/28/2024 8:36 AM
[2024-09-28] MEDS: POTASSIUM CHLORIDE 20 MEQ in WATER FOR INJECTION 1 100ML.BAG IVPB ONE (08:52)
--- NOTE | 2024-09-28 09:16 | P.PN ---
Subjective Patient is seen in follow-up for acute kidney injury, hemodialysis dependent. Started on hemodialysis September 22, 2024. Receiving TPN. Off vasopressors. Vital signs are stable. General: Resting in bed. HEENT: Tracheostomy noted. LUNGS: Scattered rhonchi. HEART: Rate and Rhythm are regular. ABDOMEN: Ostomy noted. EXTREMITITES: 2+ edema left lower extremity. Right BKA. Objective - Vital Signs Vital signs: Vital Signs Temp 98.1 F 09/28/24 04:00 Pulse 76 09/28/24 08:20 Resp 36 H 09/28/24 07:00 BP 111/53 09/28/24 07:00 Pulse Ox 96 09/28/24 07:00 FiO2 30 09/28/24 07:57 Intake & Output 09/27/24 09/28/24 09/28/24 18:59 06:59 18:59 Intake Total 5034.359 4237.087 46 Output Total 1170 1210 0 Balance 84.292 311.087 46 Weight 107 kg Intake: IV 1098 506 46 0.9 KVO 130 110 10 Anidulafungin 100 mg In 100 Sodium Chloride 0.9% 100 ml @ 84 mls/hr IVPB DAILY ANNIE Rx#:[id number] Magnesium Sulfate-D5w Pmx 200 1 gm In Dextrose/Water 1 100ml.bag @ 100 mls/hr IVPB Q1H ANNIE Rx#: [id number] Potassium Chloride 20 meq 200 In Water For Injection 1 100ml.bag @ 50 mls/hr IVPB Q2H ANNIE Rx#: [id number] Pressure Bag 39 33 3 TPN 429 363 33 Intake, IV Titration 035.248 5756.087 Amount Mvi, Adult No.4 with Vit 800.25 K 10 ml Trace (Conc-1Ml/ Dose) 1 ml Sodium Acetate 80 meq Sodium Chloride 4Meq/ml Vial 32 meq Calcium Gluconate 0.5 gm Potassium Chloride 14 meq Magnesium Sulfate gm 0.5 gm In Amino Acid 5%-D15w 1,000 ml @ 33 mls/hr IV .Q24H ANNIE Rx#:[id number] Norepinephrine 8 mg In 12.918 30.322 Sodium Chloride 0.9% 250 ml @ 0.03 MCG/KG/MIN 6. 513 mls/hr IV .Q24H ANNIE Rx#:[id number] propofoL 1,000 mg In 143.374 184.515 Empty Bag 1 bag @ 50 MCG/ KG/MIN 32.34 mls/hr IV . Q3H6M [facility] Rx#:[id number] Output: Drainage 1200 Medial Abdomen 1200 Urine 20 10 0 Stool 1150 Other: Voiding Method Indwelling Catheter Indwelling Catheter ABP, PAP, CO, CI - Last Documented Arterial Blood Pressure 39/33 - Labs CBC & Chem 7: 09/28/24 05:24 09/28/24 05:24 Labs: Abnormal Lab Results - Last 24 Hours (Table) 09/28/24 09/28/24 09/28/24 Range/Units 05:10 05:24 05:24 RBC 2.73 L (4.40-5.60) 10*6/uL Hgb 7.2 L (13.0-17.0) g/dL Hct 23.1 L (39.6-50.0) % MCH 26.4 L (27.0-32.0) pg MCHC 31.2 L (32.0-37.0) g/dL Immature Gran # 0.06 H (0.00-0.04) 10*3/uL ABG pH 7.57 H* (7.35-7.45) ABG pCO2 30 L (35-45) mmHg ABG pO2 70 L (83-108) mmHg ABG HCO3 28 H (21-25) mmol/L ABG Total CO2 29 H (19-24) mmol/L Hemoglobin 7.4 L (13.0-17.5) gm/dL Sodium 129 L (137-145) mmol/L Chloride 97 L (98-107) mmol/L BUN 28 H (9-20) mg/dL Creatinine 1.40 H (0.66-1.25) mg/dL Calcium 8.0 L (8.4-10.2) mg/dL Microbiology - Last 24 Hours (Table) 09/22/24 18:46 Blood Culture - Final Blood Assessment and Plan Plan: Assessment: 1. Acute kidney injury secondary to ATN secondary to septic shock and vancomycin toxicity. Oliguric. Started on hemodialysis October 02, 2024 via femoral catheter. 2. Septic shock secondary to pneumonia and fungemia. Currently off Levophed. 3. Acute blood loss anemia status post blood transfusion this admission. 4. Volume overload. Better with UF. 5. Chronic hypoxic and hypercapnic respiratory failure, home ventilator dependent. 6. History of cardiac arrest. 8. Status post right BKA. Plan: Hemodialysis today. TPN per surgery.
[2024-09-28 12:38] LABS: Glucose,Whole Blood 100 mg/dL (70-110)
[2024-09-28] MEDS: [UNRECOGNIZED DRUG - REMARK] IV SCH (14:31)
--- NOTE | 2024-09-28 14:47 | P.PN ---
Progress Note - Text Progress Note Date: 09/28/24 Chief Complaint: Short of breath 49-year-old patient, follows with Dr. Murcia History of paraplegia, home vent at night, tracheostomy multiple admissions to the ICU for recurrent pneumonia. Patient's previous bronchial cultures been positive for Pseudomonas. He was discharged recently on IV cefepime. Also has a history of Crohn's disease with previous colectomy diverting ileostomy. History of DVT for which patient is on subcu Lovenox. Also had drug-resistant MRSA Pseudomonas. Patient currently does not have areas significant trach secretions. He has continues TPN. Has a right BKA. He does have slight movement in the right hand. Able to follow commands by nodding his head. Answering questions. He is scared by his elder son open. I was also the DPOA. August 30: Overnight patient started having more secretions through the tracheostomy. Vancomycin was added. Also blood pressure running low patient was put on Levophed drip. Otherwise sinus rhythm. Patient remains on the ventilator. Will also send off stool for C. difficile. Also patient IV cefepime. Getting TPN. August 31: ICU. Patient had positive fluid balance. Was given IV Lasix earlier. Remains on Levophed. Spiking fevers. Getting TPN. Stool negative for C. difficile. Patient is growing MDRO Pseudomonas aeruginosa. ID is ordered IV Zerbaxa. Which is currently not available. Patient's friend is visiting him in the ICU. Light trach secretion September 01: ICU. On the ventilator. FiO2 45%. PEEP of 5. Continues to have light trach secretions. Sputum cultures again growing Pseudomonas. Zerbaxa was obtained and resumed. Blood pressure running low. On Levophed. Patient's younger son at the bedside. Colostomy working fine. Has been spiking fevers. Cooling blanket. Ice packs. September 02: ICU. Ventilator FiO2 45%. PEEP of 5. Continues to have some trach secretions. IV Zerbaxa IV tobramycin. TPN lipids to continue. Also Levophed. Patient started cooling blankets since yesterday for temperatures. Along with the nurse speech therapy records were reviewed from last few admissions. Patient with multiple MBS and bedside swallow eval. No trouble with swallowing. Patient put on a chopped diet. Thin liquids. Patient did spike a fever of 101.7 earlier today. Low ionized calcium. IV gluconate given. September 03: ICU. On ventilator FiO2 45%. PEEP of 5. Mild trach secretions. Getting IV TPN lipids. IV tobramycin. Zerbaxa was substituted to Avycaz. By ID. No fever per se since yesterday. For blood pressure patient is also on Levophed and vasopressin. September 04: ICU. On ventilator FiO2 45%. PEEP of 5. Clear trach secretions. Getting IV TPN lipids. IV tobramycin. And IV Avycaz. Remains afebrile.. On Levophed and vasopressin. Awake. 09/06/2024 Patient is seen and evaluated in ICU; remains on mechanical ventilator, actually his home ventilator, with settings of volume assist-control, rate 20, tidal volume 450, FiO2 45%, PEEP of 5. - patient has been refusing blood; no ABGs to. He is getting lactated Ringer's at 50 cc an hour, TPN at 65 cc an hour. - patient remains on the same antibiotics. - Labs reviewed which reveal white count 5.21, hemoglobin 7.9, hematocrit 27.5, and platelet count 64,000. Sodium 141, potassium 3.5, chlorides 102, CO2 32, BUN 25, and creatinine 0.35. Glucose is 152. Calcium is 8. Albumin is 2.1. -Chest x-ray is largely unchanged. Critical care managing mechanical ventilation; recommending to add scopolamine patch for increased secretion -Patient remains on Avycaz and tobramycin - Continue with current TPN 09/07 Patient remains in the ICU lethargic. He is s/p tracheostomy Overnight he was more hypoxic they have to increase PEEP to 8. Also has a lot of secretions when needed for secretions suctioning to try to become apneic per Staff. Patient currently receiving Avycaz and tobramycin. on TPN also 09/08 Patient remains in the ICU awake and alert status post tracheostomy. He has contractures of both upper and lower extremities He is complaining from pain in his lungs. He is status post flexible bronchoscopy and bronchoalveolar lavage yesterday. He has previous sputum culture positive for Pseudomonas currently covered with ceftazidime and tobramycin. He is also on Lovenox 90 mg 09/09 Patient still in the ICU on mechanical ventilation via tracheostomy. PEEP is 8.0 as is yesterday Also he spiked little fever to 100.7. IV vancomycin is added to tobramycin and ceftazidime He is getting also bronchoscopy follow-up culture results 09/10 Patient feels clinically the same, he still getting breathing via mechanical ventilation through his tracheostomy with PEEP of 8. Patient feels he is required suctioning through his tracheostomy tube. He denies chest pain or pain anywhere else he can communicate by head signs and gestures. Hemodynamically stable and afebrile hemoglobin 7.4 platelet count 73 Glucose is controlled potassium 3.3 He remains on broad-spectrum antibiotic Rocephin at this time tobramycin and IV vancomycin added yesterday because he had low-grade fever. He is getting TPN. IV fluid Ringer lactate was stopped and patient was started on IV Lasix 20 mg 3 times a day continue with therapeutic dose of Lovenox as well 09/11 Patient remains in the ICU Remains on mechanical ventilation via tracheostomy He status post bronchoalveolar lavage 2 days ago, culture is growing Pseudomonas aeruginosa and corynebacterium Patient remains on broad-spectrum antibiotics with IV vancomycin, tobramycin, ceftazidime On IV Lasix also is on therapeutic dose of Lovenox 90 mg twice daily No IV fluids 09/12 Patient remains in the ICU Clinically close to what he was over the last 2 days still getting oxygen via his tracheostomy He remains on broad-spectrum antibiotic with Ceftin this time and IV vancomycin. Also he is on IV Lasix 20 mg and therapeutic dose of Lovenox. 09/13 Patient remains in the ICU on mechanical ventilation via tracheostomy Patient looks better today, he breathing better Less secretion Fentanyl patch increased 09/14. Patient seen and examined. Patient continues to be on mechanical ventilation via trach mask. Currently on TPN. Currently on IV Zerbaxa and vancomycin 09/15. Patient seen and examined.Vital signs done showed the patient overnight, heart rate 106, blood pressure 107/40, currently on ventilation. Labs reviewed showed WBC 7.27, hemoglobin 7.5, sodium 148 on potassium 4.3, BUN 23, creatinine 0.47 09/16. Patient seen and examined labs reviewed showing WBC 5.45, hemoglobin 9.6, platelet count 131, sodium 146, potassium 4.1, BUN 20, creatinine 0.47. Continue small amount of Levophed. Currently on Zerbaxa and vancomycin. Currently on TPN September 17: ICU. Patient has taken a turn for the worse today. Significant thick white secretions from the trach. Sinus rhythm. Receiving TPN. Patient is on Levophed and vasopressor. Rather high dose. FiO2 [address] of 10[address] Ho earlier spoke to the patient/family. Remains full code September 18: ICU. Intubated FiO2 70 PEEP of 12. Sinus rhythm. Drips include IV propofol at 50 and Levophed at 0.13. Patient is off vasopressin. Patient secretions. Family at the bedside. September 19: ICU. Intubated. FiO2 50 and a PEEP of 12. Drips include IV Levophed and propofol. Also started on Lasix drip 10 mg an hour yesterday. Secretions present. September 20: ICU. Intubated. FiO2 50 and a PEEP of 12. Hemoglobin 6.3. Secondary to blood being given. Patient been on and off Levophed. On propofol. Lipids have been held. Continues with TPN. Lasix drip was discontinued. Lovenox has been held because of low hemoglobin. Unable anemia is felt to be combination of regular blood draws and possible element element of hemolysis from all the infection. No dark stool. Family at the bedside September 21: ICU. Intubated. Received 2 units of blood yesterday. Hemoglobin 7.6 today. Per nephrology renal replacement therapy. Dialysis access placed by Dr. Cadena. Patient earlier today on Levophed. Propofol. Getting TPN. Sinus rhythm. Urine output decreased September 22: ICU. Intubated. FiO2 15 of PEEP of 12. Seen earlier today. Dialysis being started. Been on IV Levophed propofol. Sinus rhythm. TPN. Sinus rhythm. September 23: ICU. Intubated. Due for another dialysis today. Saw the patient earlier today. Remains on IV Levophed propofol. Sinus rhythm. TPN. On fentanyl patch. September 24: ICU. Intubated. FiO2 40 and PEEP of 12. Remains on IV Levophed and propofol. IV TPN. Decrease trach secretions. IV antibiotics. Was due for dialysis earlier today. September 25: ICU. Intubated. FiO2 30%. Patient getting IV Levophed and propofol. IV TPN. Dialysis today. Receiving IV antibiotics. Does opens eyes occasionally. Some commands per nursing. September 26: ICU. Intubated. FiO2 30 and a PEEP of 8. Had 2 L hemodialysis removed yesterday. Getting hemodialysis today. Aiming for 2 to 3 L. Patient is on propofol. Currently Levophed on hold. Getting TPN. Patient is actually awake and following commands. Sinus rhythm. September 27: ICU. Intubated. FiO2 39 PEEP of 8. No dialysis today. Remains on IV Levophed propofol. TPN. There is a bedside. Patient asked me how is he doing. Had a lengthy information in terms of his guarded prognosis. Did tell him it is his choice about how he wishes to proceed. He needs to decide between treatment benefits versus in the suffering because of that entails from treatment and his recurrent infections etc. Especially in the context of decreased activity. Kidney failure, respiratory failure etc. September 28: ICU. Intubated. FiO2 30 and a PEEP of 8. For dialysis today. Off Levophed this morning. IV propofol. TPN. Some clear light to trach secretions. Colostomy working. Poor urine output. Active Medications Albuterol/Ipratropium (Ipratropium-Albuterol 3 Ml Neb) 3 ml INHALATION RT-Q4H PRN PRN Reason: shortness of breath Last Admin: 09/28/24 11:38 Dose: 3 ml Artificial Tears (Artificial Tears-Hypromellose Drops 15 Ml Btl) 1 drops BOTH EYES QID PRN PRN Reason: Dry Eye(s) Last Admin: 09/04/24 12:52 Dose: 1 drops Chlorhexidine Gluconate (Chlorhexidine Gluconate 15 Ml Cup) 15 ml MUCOUS MEM BID ANNIE Last Admin: 09/28/24 08:52 Dose: 15 ml Dextrose/Water (Dextrose 50% Syringe 50 Ml) 25 ml IVP PER PROTOCOL PRN; Protocol PRN Reason: Hypoglycemia Dextrose/Water (Dextrose 50% Syringe 50 Ml) 50 ml IVP PER PROTOCOL PRN; Protocol PRN Reason: Hypoglycemia Fentanyl (Fentanyl 100mcg/Hr Patch) 1 patch TRANSDERM Q72H ANNIE; Protocol Last Admin: 09/28/24 10:02 Dose: 1 patch Hydrocortisone Sodium Succinate (Hydrocortisone Succinate 100 Mg/2 Ml Vial) 50 mg IV Q12HR ANNIE Last Admin: 09/28/24 08:52 Dose: 50 mg Hydromorphone HCl (Hydromorphone 1 Mg/Ml 1 Ml Syringe) 1 mg IVP Q3HR PRN PRN Reason: Moderate Pain (Scale 4 to 6) Last Admin: 09/28/24 13:13 Dose: 1 mg Anidulafungin 100 mg/ Sodium (Chloride) 130 mls @ 84 mls/hr IVPB DAILY ANNIE; Protocol Last Admin: 09/28/24 09:37 Dose: 84 mls/hr Propofol 1,000 mg/ IV Solution 100 mls @ 32.34 mls/hr IV .Q3H6M ANNIE; Protocol Last Admin: 09/28/24 12:32 Dose: 20 mcg/kg/min, 12.936 mls/hr Norepinephrine Bitartrate 8 mg (/ Sodium Chloride) 258 mls @ 6.513 mls/hr IV .Q24H ANNIE; Protocol Last Titration: 09/28/24 13:54 Dose: 0.04 mcg/kg/min, 8.684 mls/hr Parenteral Vitamin Supplement 10 ml/ Zinc/Copper/Manganese/Selenium 1 ml/ Sodium Acetate 80 meq/ Sodium Chloride 44 meq / Calcium Gluconate 0.5 gm/Potassium Chloride 24 meq/Magnesium Sulfate 0.75 gm/Amino Acids/Dextrose 1,080.5 mls @ 55 mls/hr IV .[id number] ANNIE Last Admin: 09/28/24 14:31 Dose: 55 mls/hr Insulin Human Lispro (Insulin Lispro (Humalog) 100 Unit/Ml 10 Ml Vl) 0 unit SQ Q6HR ANNIE; Protocol Last Admin: 09/28/24 12:47 Dose: Not Given Lorazepam (Lorazepam 1 Mg/0.5 Ml Vial) 0.5 mg IV Q6HR PRN PRN Reason: Anxiety Last Admin: 09/15/24 18:26 Dose: 0.5 mg Miscellaneous Information (Pneumonia Protocol Utilized 1 Each Misc) 1 each PO ONCE PRN PRN Reason: Per Protocol Miscellaneous Information (Potassium Replacement Protocol 1 Each Misc) 1 each MISCELLANE DAILY PRN; Protocol PRN Reason: Per Protocol Miscellaneous Information (Magnesium Replacement Protocol 1 Each Misc) 1 each MISCELLANE DAILY PRN; Protocol PRN Reason: Per Protocol Naloxone HCl (Naloxone 0.4 Mg/Ml 1 Ml Vial) 0.2 mg IV Q2M PRN PRN Reason: Opioid Reversal Nystatin (Nystatin 100,000 Unit/Gm Powd 15 Gm) 1 applic TOPICAL BID ANNIE; Protocol Last Admin: 09/28/24 09:38 Dose: 1 applic Ondansetron HCl (Ondansetron 4 Mg/2 Ml Vial) 4 mg IVP Q6HR PRN PRN Reason: Nausea And Vomiting Last Admin: 09/01/24 19:41 Dose: 4 mg Pantoprazole Sodium (Pantoprazole 40 Mg/10 Ml Vial) 40 mg IV DAILY ANNIE Last Admin: 09/28/24 08:51 Dose: 40 mg Petrolatum (Zinc Oxide Paste (Z-Guard) 1 Applic) 1 applic TOPICAL BID PRN; P rotocol PRN Reason: Wound Healing Social history: Patient started smoking at the age of [age] 1 pack a day stopped in 2016. Nonambulatory. Is cared by his son over. Who is also the DPOA Physical examination: VITAL SIGNS: Afebrile, 52, 36, 134 //75. Intubated. 98% on the ventilator GENERAL:, Eyes open EYES: Pupils equal. Conjunctiva loan l. HEENT: External appearance of nose and ears normal, oral cavity dry NECK: JVD unable to assess; masses not palpable. Tracheostomy HEART: First and second heart sounds are normal; no edema. LUNGS: Respiratory rate increased, decreased breath sounds, some crackles ABDOMEN: Soft, nontender, liver spleen not palpable, no masses palpable. Double barrel ostomy. PSYCH: Following simple commands MUSCULOSKELETAL: Right BKA. Left foot drop. Left hand contracture. Right hand also with contracture but able to have some movements NEUROLOGICAL: Cranial nerves grossly intact; no facial asymmetry, slight movement in the right arm. L INVESTIGATIONS, reviewed in the clinical context: September 28: White count 6.0 hemoglobin 7.2 pH 7.57 bicarb 29 BUN 28 creatinine 1.40 September 27: White count 6.9 hemoglobin 7.8 potassium 3.4 creatinine 0.87 September 26: White count 7.3 hemoglobin 7.5 platelets 204 potassium 3.4 creatinine 0.87 September 25: White count 7.4 hemoglobin 7.6 platelets 194 potassium 3.5 creatinine 1.06 September 24: White count 6.6 hemoglobin 7 platelets 158 potassium 4 BUN 58 creatinine 1.52 phosphorus 6.2 th: White count 9.0 hemoglobin 7.7 platelets 155 potassium 4.5 creatinine 1.69 September 22: White count 7.4 hemoglobin 7.3 platelets 114 potassium 5.4 BUN 110 creatinine 1.79 September 18: White count 14.9 hemoglobin 7.6 ABG show pH of 7.2PCO2 of 68P O2 was 77 potassium was 6.1 repeat 5.2 creatinine 0.82 September 17: White count 20 hemoglobin 8.5 platelets 199 potassium 4.2 BUN 25 creatinine 0.4. ABG: pH 7.17 pCO2 79 PO277. September 02: White count 3.6 hemoglobin 9.7 platelets 130 potassium 3.9 BUN 23 creatinine 0.36 ionized calcium 4.3 TSH 2.7 Sputum culture: Pseudomonas aeruginosa: Sensitive to Zosyn, tobramycin, ceftazidime Sputum culture: Pseudomonas aeruginosa August 30: White count 3.5 hemoglobin 10.0 platelets 133 potassium 3.5 creatinine 0.36 August 29, 2024: White count 6.2 hemoglobin 12.3 platelets 216 sodium 128 potassium 3.1 BUN 50 creatinine 0.46 lactic acid 2.1 calcium 10.8 phosphorus 3.0 troponin I 0.016 UA: Negative for nitrite Influenza type A, type B, RSV, SARS-CoV-2: Not detected EKG tracing personally reviewed by me-normal sinus rhythm Chest x-ray film personally reviewed by me-right basilar infiltrate Previous labs: Sputum culture July 20, 2024: Pseudomonas aeruginosa Assessment plan: - basal pneumonia. Previous admission sputum was positive for Pseudomonas aeruginosa-:: Slow to respond Has received different antibiotics. Currently: Aniedulefungin IV, IV ceftolozane tazobactam, IV vancomycin Being followed by pulmonary, and ID - Fluid overload Had received Lasix drip - Acute kidney injury from ATN from septic shock. Also consider vancomycin toxicity. Oliguric. Volume overload. Dialysis catheter placed by Dr. Cadena-September 21. First dialysis was on September 22.-Has been getting daily dialysis. No dialysis today - Metabolic alkalosis - Septic shock: Levophed held this morning - Acute on chronic hypoxic and hypercapnic respiratory failure, vent dependent at night at home: Slow to respond On ventilator support. Propofol - Tracheostomy with trach collar -Acute normocytic anemia of chronic disease and hospital-acquired anemia from blood draws and possible hemolysis from infection 2 units of blood given September 20. - Thrombocytopenia likely from sepsis Follow - Right below-knee amputation - Chronic quadriparesis. Including left foot drop. Left arm contracture. Some right hand contracture. Some movement in the right arm - Crohn's disease with double barrel ostomy bag in place since 09/2021 - TPN and lipids Lipids have been held during propofol - Full code - DPOA, son BECKY Prognosis remains guarded. For dialysis today. Antibiotics to continue. Tube feeding. Past Medical History Past Medical History: CVA/TIA, Deep Vein Thrombosis (DVT), Pneumonia Additional Past Medical History / Comment(s): Hx CVA in 2012, DVT R arm, Crohns. colostomy Bag placed in 09/2021. History of Any Multi-Drug Resistant Organisms: MRSA, Other MDRO Date of last positivie culture/infection: 07/20/24-Other MDRO; 12/14/23-MRSA MDRO Source:: Other MDRO - sputum, BAL; MRSA- nasal Past Surgical History: Bowel Resection, Cholecystectomy, Orthopedic Surgery Additional Past Surgical History / Comment(s): R BRANDTA, trach with chronic home vent Past Anesthesia/Blood Transfusion Reactions: No Reported Reaction Additional Past Anesthesia/Blood Transfusion Reaction / Comment(s): recalled from previous admission Smoking Status: Never smoker
--- NOTE | 2024-09-28 15:11 | P.PN ---
Subjective Progress Note Date: 09/28/24 This is a 49-year-old white male familiar to my service, history of paraplegia, home vent dependent, history of tracheostomy, patient had multiple admissions to the ICU for recurrent episodes of pneumonia and respiratory failure requiring ventilatory support. On his last admission patient was eventually discharged home on a home ventilator, and this was back on 08/04/2024. Patient was discharged home with a PICC line, patient was in the ER yesterday on 08/28 for abnormal labs mostly low potassium and low sodium discharged home however he came back today complaining of shortness of breath, has been ventilator dependent all along. Chest x-ray showed basically bibasilar opacities/atelectasis, doubt pneumonia, the findings in the left lower lobe are chronic. Patient did have previous history of pneumonia involving the left lower lobe and he had multiple bronchoscopies in the past. Bronchial cultures and sputum cultures have been positive in the past for mostly Pseudomonas aeruginosa. Patient was seen in the ER today, and he is already on cefepime for empiric coverage for potential left lower lobe pneumonia, patient had abnormal electrolytes with relatively low sodium low potassium, no leukocytosis, normal renal profile, blood pressure was soft, and he was given fluid boluses. Lactic acid was 2.1, D-dimer is normal, patient was admitted, and this consult was initiated. 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 Patient was seen today on 08/30/2024, patient continues to have intermittent episodes of fever with Tmax of 102, patient required norepinephrine and he remains on norepinephrine at 0.04 mcg/kg/min remains on LR at 130 cc/h remains on his home ventilator at tidal volume of 450 rate of 20 FiO2 45% and PEEP of 5. Seems comfortable, not in distress, his WBC is 3.5 hemoglobin 10.0 electrolytes are normal renal profile is normal potassium is borderline low. Patient remains on cefepime, vancomycin was added because of his previous history of MRSA, and is on cefepime for previous history of pseudomonal infection and now that the patient may be septic it is more of a reason to broaden the spectrum of antibiotics coverage with cefepime and vancomycin. Sputum cultures and blood cultures are pending. Patient does have history of pseudomonal and history of MRSA infections, and I discontinued his Zithromax today replace Zithromax with vancomycin. Viral screen is negative Legionella antigen is negative. Chest x- ray is relatively unchanged continues to show bibasilar opacities atelectasi s/pneumonia. Progress note dated August 31, 2024. The patient is seen today in room 252. The patient was admitted a couple days ago, to the intensive care unit. The patient is currently on mechanical ventilator, actually his home ventilator. He is on volume assist-control, rate 20, tidal volume 450, FiO2 45% PEEP of 5. The patient is getting lactated Ringer's at 130 cc an hour, TPN at 91 cc an hour, norepinephrine at 8 mcg/min. Doppler of the left upper extremity was negative. He continues on Zerbaxa, and vancomycin. We will check a procalcitonin level. Cultures thus far are negative. He does have a previous history of methicillin-resistant Staph aureus infection, and pseudomonal infections. White count was 2.21, hemoglobin 9.3, hematocrit 32, platelet count 1 61,000. D-dimer was 5.78. Sodium 132, potassium 4.3, chlorides 106, CO2 21, BUN 18, creatinine 0.28. Glucose was 141. Calcium 7.8. C. difficile study was negative. Urine Legionella antigen was negative. Microbiologic studies are currently negative. Chest x-ray shows bibasilar airspace opacities, possibly consistent with pneumonia. 09/01/24 - The patient is seen today in room 252. Admitted to the hospital and the intensive care unit on 08/29/2024. The patient is currently on mechanical ventilator, his one from home. He is on volume assist control, rate of 20, tidal volume of 450, FiO2 45% and PEEP of 5. He currently has LR running at 50 cc/h, TPN at 91 cc/h, Zerbaxa and tobramycin. Chest Xray done this morning showed stable airspace opacities. Cultures are positive for pseudomonas aeruginosa, awaiting sensitivities. WBCs 2.69, Hgb 8.9, Hct 31.5, PLT 153, Na 135, K 3.4, Cl 109, HCO3 19, BUN 22, Cr 0.34, Phos 2.4. 09/02/24 - He is seen today in room 252. Admitted to the hospital and ICU on 08/29/24. He continues on mechanical ventilator, his one from home. He remaines on volume assist control, rate of 20, tidal volume of 450, FiO2 45% and PEEP of 5. He continues to have LR running at 50 cc/h, TPN at 91 cc/h, norepinephrine at 0.13 mcg/kg/min, Zebraxa and Tobramycin. Chest XRay this morning showed stable airspace opacities. Continue to await sensitivity of pseudomonas sputum culture. Lab work shows WBCs 3.64, Hgb 9.7, Hct 33.5, PLT 130, Na 133, K 3.9, bicarb 21, BUN 23, Cr 0.36, Ca 7.8, Mg 2.4, Albumin 2.3. 09/03/24 - He is seen in room 252. Admitted to the hospital and ICU on 08/29/24. He continues on mechanical ventilator, his one from home. He remaines on volume assist control, rate of 20, tidal volume of 450, FiO2 45% and PEEP of 5. He continues to have LR running at 50 cc/h, TPN at 91 cc/h, norepinephrine at 0.24 mcg/kg/min, Avycaz and Tobramycin. Zebraxa was discontinued as there was no reported sensitivity to it. Lab work shows WBCs 9.40, Hgb 8.8, Hct 30.6, PLT 100, Na 130, K 3.6, bicarb 23, BUN 25, Cr 0.51, Ca 7.8, Ionized Ca 4.6, Phos 3.3, Mg 2.1, TSH 2.710 and random cortisol 13.1. 09/04/24 - He is seen in room 252. Admitted to the hospital and ICU on 08/29/24. He continues on mechanical ventilator, his one from home. He remaines on volume assist control, rate of 20, tidal volume of 450, FiO2 45% and PEEP of 5. He continues to have LR running at 50 cc/h, TPN at 91 cc/h, norepinephrine at 0.24 mcg/kg/min, Avycaz and Tobramycin. Lab work shows sodium 133, potassium 3.5, bicarb 24, BUN 27, creatinine 0.47, calcium 7.9, ionized calcium 4.6, magnesium 1.9, phosphorus 3.0, total bilirubin 1.7, AST 57, ALT 45, alkaline phosphatase 99. Progress note dated September 05, 2024. 49-year-old male well-known to our service. He is seen today in room 252. He continues on volume assist-control, rate 20, tidal 450, FiO2 45%, PEEP of 5. The patient has refused blood gases. Currently, he is getting TPN at 65 cc an hour, norepinephrine at 1 mcg/min, LR at 50 cc/h. Clinically, the patient is doing well. His chest x-ray remains about the same. Yesterday he was on a hig her dose of norepinephrine, and also was on vasopressin. Both have been weaned off. Current labs include a sodium 136, potassium 4.1, chlorides 101, CO2 28, BUN 30, creatinine 0.37. Glucose 153. Albumin is 2.2. Previous sputum, from August 29 with positive for Pseudomonas aeruginosa. Chest x-ray is largely unchanged. Progress note dated September 06, 2024. 49-year-old male again seen today in the intensive care unit, room 252. He remains on mechanical ventilator, actually his home ventilator, with settings of volume assist-control, rate 20, tidal volume 450, FiO2 45%, PEEP of 5. No blood gases today. The patient has been refusing. He is getting lactated Ringer's at 50 cc an hour, TPN at 65 cc an hour. He continues on the same antibiotics. White count 5.21, hemoglobin 7.9, hematocrit 27.5, and platelet count 64,000. Sodium 141, potassium 3.5, chlorides 102, CO2 32, BUN 25, and creatinine 0.35. Glucose is 152. Calcium is 8. Albumin is 2.1. Chest x-ray is largely unchanged. 09/07/2024, the patient remains on a mechanical ventilator. The patient is having excessive respiratory secretions. Attempts to suction this patient has failed as the secretions are quite thick and the patient has had episodes of bradycardia while suctioning. Remains on TPN at 65 cc an hour and lactated Ringer at 50 cc an hour. Remains on assist-control mode mechanical ventilation at rate of 20, tidal volume of 450, FiO2 of 100% with a PEEP of 8. Patient has refused to have an arterial line. The patient has refused blood gases. Urine output is adequate. No hypotension. He has a double-lumen catheter in his left chest and the left forearm IV line.He is afebrile. He continues to have multidrug-resistant Pseudomonas in his sputum. The patient remains on ceftazidime/avibactam per IDs recommendations. He is also on IV tobramycin. Remains on stress dose hydrocortisone. Blood work shows a white cell count of 6.9, hemoglobin 7.9 and a platelet count of 90. BUN is 24 with a creatinine of 0.33. Sodium is 143 and a potassium level of 3.7. Bicarb level is at 33. Output from the ileostomy bag is high and the net fluid balance is +1.2 L over the past 24 hours. Airway pressures on the mechanical ventilator are elevated with an elevated peak airway pressure around 36 consistent with excessive respiratory secretions and mucous plugs. Chest x-ray shows atelectatic changes infiltrates in lung bases along with some scattered hazy bilateral pulmonary infiltrates. 09/08/2024, the patient is being seen for a follow-up. On today's evaluation, the patient is awake on no sedation. His chest x-ray showing worsening bilateral pulmonary filtrates. Running low-grade fever. A bronchoscopy in the BAL was done yesterday and the results are still pending for now. He remains on assist-control mode at rate of 20, tidal volume of 450, FiO2 of 60% with a PEEP of 8. He remains on lactated Ringer at rate of 50 cc an hour and TPN at rate of 65 cc an hour. He remains on IV Lasix. He remains on ceftazidime/avibactam regarding his multidrug-resistant Pseudomonas. He is also on tobramycin. The white cell count is 6 with a hemoglobin 7.7 and platelet count of 77. Sodium is at 143, BUN 24 with a creatinine of 0.2. Serum bicarb is at 34. LFTs are within normal limits. The patient had no blood cares for today. He has refused blood gases. On a separate note, cardiology was consulted regarding the episodes of bradycardia that the patient is encountering. Upon sectioning, the patient is having episodes of cardiac block, likely third-degree AV block that last around 5 to 8 seconds. Patient was taken off the scopolamine patch. On 09/09/2024, the patient remains on a mechanical ventilator. He is complaining of shortness of breath even while being on the mechanical ventilator. Repeat chest x-ray was done today and the patient has developed diffuse infiltrates bilaterally greater in the lung bases and there is interval worsening in the chest x-ray findings. The bronchoalveolar lavage that was obtained earlier on 09/07/2024 showed Pseudomonas aeruginosa and corynebacterium. The patient remains on ceftazidime avibactam and tobramycin. Vancomycin was also added. He is running a low-grade fever with a Tmax of 100.7. He remains on assist-control mode mechanical ventilation at rate of 20, tidal volume of 450, FiO2 of 60% with a PEEP of 8. The patient did not have a blood gas today. Fluid balance is +2.6 L over the past 24 hours. He is currently on IV Lasix 20 mg IV push every 8 hours. The patient is also on TPN at rate of 65 cc an hour and lactated Ringer at rate of 50 cc an hour. The white cell count is 4.6 with a heme of 7.3 and a platelet count of 72. Sodium is at 144, bicarb is at 34, BUN 22 with a creatinine of 0.38. Chloride is 103. Calcium levels at 7.4, phosphorus 3.6, LFTs are normal. Albumin levels at 2.1. Arousable, able to communicate. No significant cardiac arrhythmias over the past 24 hours. 09/10/2024, patient is awake and alert and communicating. Continues to have on and off episodes of shortness of breath while being on a mechanical ventilator. Oxygenation is borderline and the patient's pulse ox remains low. Unable to obtain any blood gases as the patient has declined arterial blood draws. He is on assist-control mode rate of 20, tidal volume of 450, FiO2 of 70% with a PEEP of 10. Remains on TPN at rate of 35 cc an hour and lactated Ringer at rate of 50 cc an hour. Fluid balance is +2.6 L over the past 24 hours.the white cell count is 6.3, hemoglobin is at 7.4, platelet count is a 73 and the patient remains on therapeutic dose of Lovenox. The patient's sodium levels at 143, K is at 3.3, bicarb is at 40 with a BUN of 21 and a creatinine of 0.8. Blood sugar is 140. The most recent lavage from the right lower lobe was positive for Pseudomonas aeruginosa and corynebacterium. The patient remains on a combination of ceftazidime antibacterial combination, tobramycin and IV vancomycin. Output from ileostomy is in order of 800 cc over the past 8 hours. Remains on IV Lasix. Chest x-ray is unchanged and it shows bilateral pulmonary infiltrates, diffuse increased interstitial lung markings, lines and catheters are in place, tracheostomy tube is in place. 09/11/2024, the patient is stable, awake and alert and communicating. Remains on TPN for nutritional support with rate of 75 cc an hour. Remains on the same mechanical ventilator settings and the patient remains on assist-control mode at rate of 20, tidal volume of 450, FiO2 of 60% with a PEEP of 8. Fluid balance is -50 cc over the past 24 hours and the patient remains on IV Lasix 20 mg every 8 hours. The biotic coverage remains unchanged and the patient remains on a combination of ceftazidime IV Bactrim, tobramycin and vancomycin. The white cell count is at 4.7 with a hemoglobin of 7.1 and a platelet count of 89. BUN is 20 with a creatinine of 0.25. Sodium levels at 142. Serum iron levels at 16. Vancomycin trough is at 17. Follow-up chest x-ray from today shows stable bilateral pulmonary filtrates and pleural effusions bilaterally. Tracheostomy tube remains in good location. The patient continues to have high output through the ileostomy. Currently afebrile. No cardiac arrhythmias have been noted. 09/12/2024, patient is resting comfortably in bed. Remains on a mechanical ventilator. Unable to wean. Chest x-ray still showing bilateral pulmonary filtrates consistent with pneumonia. The patient is on assist-control mode at rate of 20, tidal volume of 450, FiO2 of 50% and a PEEP of 8. Remains negative fluid balance as the patient is being diuresed with IV Lasix. Fluid balance is -1 L over the past 24 hours. Remains on Lasix 20 mg IV push every 8 hours. Hemoglobin from this morning was 5.8. Repeat hemoglobin came back at 7.4. Platelet counts are stable. No evidence of any GI bleeding. Remains on Lovenox therapeutic dose. Remains on TPN at rate of 75 cc an hour. White cell count is at 5, platelet count is at 93, BUN is 25 with a creatinine 0.4. Sodium levels at 144 and a potassium level is at 3.6. Ileostomy still functioning. Remains on broad-spectrum antibiotics. Remains on ceftolozane/tazobactam. Remains on vancomycin. Remains on stress dose hydrocortisone. 09/13/2024, the patient is being seen for a follow-up. No change in his condition over the past 24 hours. Remains on a mechanical ventilator. Awake and alert and communicating. Started on fentanyl patch and his pain is under better control and the patient is using fentanyl patch 75 mcg every 72 hours. Remains assist-control mechanical ventilation at rate of 20, tidal volume of 450, FiO2 50% with a PEEP of 8. Chest x-ray from today shows stable bilateral pulmonary infiltrates, no significant change compared to yesterday and the tracheostomy tube remains in place. The patient continues to have multifocal airspace disease. Fluid balance is +30 cc over the past 24 hours. TPN is running at a rate of 75 cc an hour. Afebrile. Hemoglobin in this morning was at 5.8. Recheck was 6.1. The platelet count is 817. Sodium is at 148, potassium 3.2, BUN 26 with a creatinine of 0.44. Serum bicarb is at 38. The patient has a triglyceride level of 152. Remains on ceftolozane tazobactam and vancomycin. On 09/28/2024, the patient is being seen for a follow-up. The patient remains ventilator dependent. This morning, the patient remains on a assist-control mode of mechanical ventilation at rate of 36, tidal volume of 400, FiO2 30% with a PEEP of 5. The blood gases from today showed pH of 7.57 with a PCO2 of 30 and PO2 of 70. Chest x-ray shows ongoing diffuse interstitial infiltrates and wor sening airspace disease in the right lung base and the patient is having limited amount of respiratory secretions. Currently on propofol running at 20 mcg/kg/min. 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 Blood culture was positive on 09/15/2024 and 09/18/2024 and the patient is currently on Eraxis. Repeat blood culture on 09/22/2024 was negative. ID is on the case. Lines were all removed and the patient has a right subclavian triple-lumen catheter: Inserted on 09/17/2024. The patient is currently on no pressors. The patient also has developed an acute kidney injury. The patient was started on hemodialysis on 09/22/2024 and the patient has a left femoral triple-lumen catheter in place. Last hemodialysis session was on 09/26/2024 and another hemodialysis session is to follow this morning. He remains on TPN running at 33 cc an hour. Arousable. Sedated. Blood work from today shows a BUN of 28 with a creatinine of 1.4. Sodium is at 129 and potassium is at 4.4. WBC count is 6 with a heme of 7.1 platelet count of 206. Afebrile for now. Ileostomy continues to show increased output. Objective - Vital Signs Vital signs: Vital Signs Temp 98.1 F 09/28/24 04:00 Pulse 76 09/28/24 08:20 Resp 36 H 09/28/24 07:00 BP 111/53 09/28/24 07:00 Pulse Ox 96 09/28/24 07:00 FiO2 30 09/28/24 07:57 Intake & Output 09/27/24 09/28/24 09/28/24 18:59 06:59 18:59 Intake Total 7404.058 5228.087 46 Output Total 1170 1210 0 Balance 84.292 311.087 46 Weight 107 kg Intake: IV 1098 506 46 0.9 KVO 130 110 10 Anidulafungin 100 mg In 100 Sodium Chloride 0.9% 100 ml @ 84 mls/hr IVPB DAILY ANNIE Rx#:[id number] Magnesium Sulfate-D5w Pmx 200 1 gm In Dextrose/Water 1 100ml.bag @ 100 mls/hr IVPB Q1H ANNIE Rx#: [id number] Potassium Chloride 20 meq 200 In Water For Injection 1 100ml.bag @ 50 mls/hr IVPB Q2H ANNIE Rx#: [id number] Pressure Bag 39 33 3 TPN 429 363 33 Intake, IV Titration 073.709 4890.087 Amount Mvi, Adult No.4 with Vit 800.25 K 10 ml Trace (Conc-1Ml/ Dose) 1 ml Sodium Acetate 80 meq Sodium Chloride 4Meq/ml Vial 32 meq Calcium Gluconate 0.5 gm Potassium Chloride 14 meq Magnesium Sulfate gm 0.5 gm In Amino Acid 5%-D15w 1,000 ml @ 33 mls/hr IV .Q24H ANNIE Rx#:[id number] Norepinephrine 8 mg In 12.918 30.322 Sodium Chloride 0.9% 250 ml @ 0.03 MCG/KG/MIN 6. 513 mls/hr IV .Q24H ANNIE Rx#:[id number] propofoL 1,000 mg In 143.374 184.515 Empty Bag 1 bag @ 50 MCG/ KG/MIN 32.34 mls/hr IV . Q3H6M ANNIE Rx#:[id number] Output: Drainage 1200 Medial Abdomen 1200 Urine 20 10 0 Stool 1150 Other: Voiding Method Indwelling Catheter Indwelling Catheter ABP, PAP, CO, CI - Last Documented Arterial Blood Pressure 39/33 - Exam No acute distress, currently connected to the ventilator. He has a tracheostomy tube in place. The patient has a #6 [address] tracheostomy tube in place. Lethargic, follows simple commands. Profoundly weak in all 4 extremities. The patient is currently on propofol for sedation. HEENT examination is grossly unremarkable. Mucous membranes are moist. No oral lesions. Tracheostomy tube is in place. The patient has a right subclavian triple-lumen catheter in place Neck supple. Full range of motion. No adenopathy thyromegaly or neck vein distention. Cardiovascular examination reveals regular rhythm rate. S1-S2 normal. No S3 or S4. No discernible murmur noted. Lungs reveal clear breath sounds. Breath sounds are diminished bilaterally and scattered rhonchi heard throughout the lung craft bilaterally. Tracheostomy tube in place. Abdomen reveals an enterocutaneous fistula, normal bowel sounds. No tenderness. No masses. The patient has a left femoral dialysis catheter in place. Extremities are intact. No cyanosis clubbing and there is edema in his left lower extremity and upper extremities bilaterally. The patient has a below-knee amputation his right lower extremity. Skin is without rash or lesion. Neurologic examination is brief but nonfocal. He does have significant muscle atrophy, and contractures. He has a right below the knee amputation. Generalized profound weakness. Weak cough. Weak motor functions. - Labs CBC & Chem 7: 09/28/24 05:24 09/28/24 05:24 Labs: Abnormal Lab Results - Last 24 Hours (Table) 09/28/24 09/28/24 09/28/24 Range/Units 05:10 05:24 05:24 RBC 2.73 L (4.40-5.60) 10*6/uL Hgb 7.2 L (13.0-17.0) g/dL Hct 23.1 L (39.6-50.0) % MCH 26.4 L (27.0-32.0) pg MCHC 31.2 L (32.0-37.0) g/dL Immature Gran # 0.06 H (0.00-0.04) 10*3/uL ABG pH 7.57 H* (7.35-7.45) ABG pCO2 30 L (35-45) mmHg ABG pO2 70 L (83-108) mmHg ABG HCO3 28 H (21-25) mmol/L ABG Total CO2 29 H (19-24) mmol/L Hemoglobin 7.4 L (13.0-17.5) gm/dL Sodium 129 L (137-145) mmol/L Chloride 97 L (98-107) mmol/L BUN 28 H (9-20) mg/dL Creatinine 1.40 H (0.66-1.25) mg/dL Calcium 8.0 L (8.4-10.2) mg/dL Microbiology - Last 24 Hours (Table) 09/22/24 18:46 Blood Culture - Final Blood Assessment and Plan Plan: Acute on chronic hypoxic respiratory failure. The patient remains on a mechanical ventilator. The patient has bilateral pleural effusion and bilateral pneumonia with multidrug-resistant Pseudomonas aeruginosa. The patient was initially treated with ceftazidime/tazobactam and tobramycin combination. Repeat bronchoscopy on 09/07/2024 shows a positive Pseudomonas aeruginosa and corynebacterium in the BAL collected from the right lower lobe. The patient was subsequently treated with ceftolozane /tazobactam and vancomycin. There is also development of bilateral pleural effusion and the patient also has an area of consolidation in the right lung base. Sepsis with systemic fungemia and blood culture was positive for Bella parapsilosis, currently on IV Eraxis, initial blood culture was positive on 09/15/2024 and repeat cultures from 09/18/2024 was positive for Bella. Most recent blood culture from 09/22/2024 was negative. Septic shock, recovered, currently off pressors Acute kidney injury, currently on hemodialysis, last hemodialysis session was on 09/26/2024 History of severe tracheal stenosis, S/P tracheostomy. 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 Chronic anemia, hemoglobin stable at 7.2 History of DVT. History of CVA. History of right below-knee amputation. Previous history of asystole/cardiac arrest, 2021. History of Crohn's disease, S/P enterocutaneous fistula, diverting ileostomy. The patient remains on TPN for nutritional support. Plan: Continue ventilator support, will drop the respiratory rate down to 24 and a tidal volume down to 400 Continue sedation with propofol Continue IV Eraxis Patient is currently off pressors hemodialysis to be completed today per nephrology Continues on TPN at 33 cc an hour, IV fluids or KVO continue stress dose hydrocortisone Heparin subcu for DVT prophylaxis Increase the fentanyl patch to 100 mcg on a daily basis for better pain control IV Protonix Monitor ileostomy output Monitor hemoglobin Prognosis remains extremely poor due to above-mentioned comorbidities. Will continue to follow and make further recommendation based on his progress. This evaluation was done at 35 minutes. Time with Patient: Greater than 30
[2024-09-28] MEDS: HEPARIN SODIUM,PORCINE 5,000 UNIT/ML 1 ML VIAL SQ SCH (16:49)
[2024-09-28 17:54] LABS: Glucose,Whole Blood 117 mg/dL (70-110)
[2024-09-28 23:44] LABS: Glucose,Whole Blood 128 mg/dL (70-110)
[2024-09-29 05:28] LABS: ABG HCO3 32 mmol/L (21-25); ABG PCO2 46 mmHg (35-45); ABG PH 7.44 (7.35-7.45); ABG PO2 80 mmHg (83-108); ABG TCO2 33 mmol/L (19-24)
[2024-09-29 05:36] LABS: Allen Test Performed? no
[2024-09-29 05:47] LABS: Glucose,Whole Blood 115 mg/dL (70-110)
[2024-09-29 06:12] LABS: HCT 23.6 % (39.6-50.0); HGB 7.0 g/dL (13.0-17.0); MCH 26.0 pg (27.0-32.0); MCHC 29.7 g/dL (32.0-37.0); MCV 87.7 fL (80.0-97.0); Platelet Count 206 10*3/uL (140-440); RBC 2.69 10*6/uL (4.40-5.60); RDW 21.3 % (11.5-14.5); WBC 5.26 10*3/uL (4.50-10.00)
[2024-09-29 06:28] LABS: African American GFR (CKD) 90 (>60 ml/min/1.73 sqM); Anion Gap 7 mmol/L; Blood Urea Nitrogen 20 mg/dL (9-20); Calcium 8.1 mg/dL (8.4-10.2); Carbon Dioxide 28 mmol/L (22-30); Chloride 99 mmol/L (98-107); Glucose 108 mg/dL (74-99); Magnesium 2.0 mg/dL (1.6-2.3); Non-African American GFR(CKD) 78 (>60 ml/min/1.73 sqM); Potassium 3.6 mmol/L (3.5-5.1); Sodium 134 mmol/L (137-145)
[2024-09-29] MEDS: POTASSIUM CHLORIDE 20 MEQ in WATER FOR INJECTION 1 100ML.BAG IVPB ONE (08:03)
--- NOTE | 2024-09-29 08:13 | XR ---
EXAMINATION TYPE: XR chest 1V portable DATE OF EXAM: 09/29/2024 5:41 AM COMPARISON: 09/28/2024 CLINICAL INDICATION: Male, 49 years old with history of Mechanical ventilation, , FINDINGS: Tracheostomy cannula. Right subclavian CVC tip within the upper right atrium. Patient is rotated towa rds the left altering the normal cardiac and mediastinal contours. Right heart margin remains largely obscured by adjacent pleural parenchymal opacity. Small bilateral pleural effusions with bibasilar o pacities and similar to slight worsening diffuse interstitial changes. IMPRESSION: 1. Similar to slight worsening diffuse interstitial opacities. 2. Small bilateral pleural effusions with prominent bibasilar airspace disease persists. [facility], , 09/29/2024 8:11 AM
--- NOTE | 2024-09-29 10:01 | P.PN ---
Subjective Patient is seen in follow-up for acute kidney injury, hemodialysis dependent. Started on hemodialysis September 22, 2024. Receiving TPN. Off vasopressors. Awake on vent. Vital signs are stable. General: Resting in bed. HEENT: Tracheostomy noted. LUNGS: Scattered rhonchi. HEART: Rate and Rhythm are regular. ABDOMEN: Ostomy noted. EXTREMITITES: 2+ edema left lower extremity. Right BKA. Objective - Vital Signs Vital signs: Vital Signs Temp 99.7 F H 09/29/24 00:00 Pulse 68 09/29/24 08:17 Resp 24 09/29/24 07:00 BP 100/45 09/29/24 07:00 Pulse Ox 97 09/29/24 07:00 FiO2 30 09/29/24 07:53 Intake & Output 09/28/24 09/29/24 09/29/24 18:59 06:59 18:59 Intake Total 3313.619 2560.317 0227.627 Output Total 2965 25 0 Balance 348.619 010.431 9466.627 Weight 107 kg 106.4 kg Intake: IV 640 816 68 0.9 KVO 120 120 10 Pressure Bag 36 36 3 TPN 484 660 55 Intake, IV Titration 173.619 529.205 1880.627 Amount Mvi, Adult No.4 with Vit 1055.083 K 10 ml Trace (Conc-1Ml/ Dose) 1 ml Sodium Acetate 80 meq Sodium Chloride 4Meq/ml Vial 44 meq Calcium Gluconate 0.5 gm Potassium Chloride 24 meq Magnesium Sulfate gm 0. 75 gm In Amino Acids 5 %/ Dextrose 20 % 1,000 ml @ 55 mls/hr IV .[id number] ANNIE Rx#:[id number] Norepinephrine 8 mg In 81.558 27.608 34.772 Sodium Chloride 0.9% 250 ml @ 0.03 MCG/KG/MIN 6. 513 mls/hr IV .Q24H ANNIE Rx#:[id number] propofoL 1,000 mg In 92.061 175.029 79.772 Empty Bag 1 bag @ 50 MCG/ KG/MIN 32.34 mls/hr IV . Q3H6M ANNIE Rx#:[id number] Hemodialysis 2500 Output: Drainage 450 Medial Abdomen 450 Urine 15 25 0 Hemodialysis 500 Hemodialysis Net Amount 1999 Other: Voiding Method Indwelling Catheter Indwelling Catheter ABP, PAP, CO, CI - Last Documented Arterial Blood Pressure 46/37 - Labs CBC & Chem 7: 09/29/24 05:45 09/29/24 05:45 Labs: Abnormal Lab Results - Last 24 Hours (Table) 09/28/24 09/28/24 09/29/24 Range/Units 17:51 23:42 05:23 RBC (4.40-5.60) 10*6/uL Hgb (13.0-17.0) g/dL Hct (39.6-50.0) % MCH (27.0-32.0) pg MCHC (32.0-37.0) g/dL ABG pCO2 46 H (35-45) mmHg ABG pO2 80 L (83-108) mmHg ABG HCO3 32 H (21-25) mmol/L ABG Total CO2 33 H (19-24) mmol/L ABG O2 Saturation 97.2 H (94-97) % Hemoglobin 7.4 L (13.0-17.5) gm/dL Sodium (137-145) mmol/L Glucose (74-99) mg/dL POC Glucose (mg/dL) 117 H 128 H (70-110) mg/dL Calcium (8.4-10.2) mg/dL 09/29/24 09/29/24 09/29/24 Range/Units 05:45 05:45 05:45 RBC 2.69 L (4.40-5.60) 10*6/uL Hgb 7.0 L (13.0-17.0) g/dL Hct 23.6 L (39.6-50.0) % MCH 26.0 L (27.0-32.0) pg MCHC 29.7 L (32.0-37.0) g/dL ABG pCO2 (35-45) mmHg ABG pO2 (83-108) mmHg ABG HCO3 (21-25) mmol/L ABG Total CO2 (19-24) mmol/L ABG O2 Saturation (94-97) % Hemoglobin (13.0-17.5) gm/dL Sodium 134 L (137-145) mmol/L Glucose 108 H (74-99) mg/dL POC Glucose (mg/dL) 115 H (70-110) mg/dL Calcium 8.1 L (8.4-10.2) mg/dL Assessment and Plan Plan: Assessment: 1. Acute kidney injury secondary to ATN secondary to septic shock and vancomy priscilla toxicity. Oliguric. Started on hemodialysis October 02, 2024 via femoral catheter. 2. Septic shock secondary to pneumonia and fungemia. Currently off Levophed. 3. Acute blood loss anemia status post blood transfusion this admission. 4. Volume overload. Better with UF. 5. Chronic hypoxic and hypercapnic respiratory failure, home ventilator dependent. 6. History of cardiac arrest. 8. Status post right BKA. Plan: Hemodialysis tomorrow. TPN per surgery.
--- NOTE | 2024-09-29 11:42 | P.PN ---
Subjective Progress Note Date: 09/29/24 This is a 49-year-old white male familiar to my service, history of paraplegia, home vent dependent, history of tracheostomy, patient had multiple admissions to the ICU for recurrent episodes of pneumonia and respiratory failure requiring ventilatory support. On his last admission patient was eventually discharged home on a home ventilator, and this was back on 08/04/2024. Patient was discharged home with a PICC line, patient was in the ER yesterday on 08/28 for abnormal labs mostly low potassium and low sodium discharged home however he came back today complaining of shortness of breath, has been ventilator dependent all along. Chest x-ray showed basically bibasilar opacities/atelectasis, doubt pneumonia, the findings in the left lower lobe are chronic. Patient did have previous history of pneumonia involving the left lower lobe and he had multiple bronchoscopies in the past. Bronchial cultures and sputum cultures have been positive in the past for mostly Pseudomonas aeruginosa. Patient was seen in the ER today, and he is already on cefepime for empiric coverage for potential left lower lobe pneumonia, patient had abnormal electrolytes with relatively low sodium low potassium, no leukocytosis, normal renal profile, blood pressure was soft, and he was given fluid boluses. Lactic acid was 2.1, D-dimer is normal, patient was admitted, and this consult was initiated. 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 Patient was seen today on 08/30/2024, patient continues to have intermittent episodes of fever with Tmax of 102, patient required norepinephrine and he remains on norepinephrine at 0.04 mcg/kg/min remains on LR at 130 cc/h remains on his home ventilator at tidal volume of 450 rate of 20 FiO2 45% and PEEP of 5. Seems comfortable, not in distress, his WBC is 3.5 hemoglobin 10.0 electrolytes are normal renal profile is normal potassium is borderline low. Patient remains on cefepime, vancomycin was added because of his previous history of MRSA, and is on cefepime for previous history of pseudomonal infection and now that the patient may be septic it is more of a reason to broaden the spectrum of antibiotics coverage with cefepime and vancomycin. Sputum cultures and blood cultures are pending. Patient does have history of pseudomonal and history of MRSA infections, and I discontinued his Zithromax today replace Zithromax with vancomycin. Viral screen is negative Legionella antigen is negative. Chest x- ray is relatively unchanged continues to show bibasilar opacities atelectasi s/pneumonia. Progress note dated August 31, 2024. The patient is seen today in room 252. The patient was admitted a couple days ago, to the intensive care unit. The patient is currently on mechanical ventilator, actually his home ventilator. He is on volume assist-control, rate 20, tidal volume 450, FiO2 45% PEEP of 5. The patient is getting lactated Ringer's at 130 cc an hour, TPN at 91 cc an hour, norepinephrine at 8 mcg/min. Doppler of the left upper extremity was negative. He continues on Zerbaxa, and vancomycin. We will check a procalcitonin level. Cultures thus far are negative. He does have a previous history of methicillin-resistant Staph aureus infection, and pseudomonal infections. White count was 2.21, hemoglobin 9.3, hematocrit 32, platelet count 1 61,000. D-dimer was 5.78. Sodium 132, potassium 4.3, chlorides 106, CO2 21, BUN 18, creatinine 0.28. Glucose was 141. Calcium 7.8. C. difficile study was negative. Urine Legionella antigen was negative. Microbiologic studies are currently negative. Chest x-ray shows bibasilar airspace opacities, possibly consistent with pneumonia. 09/01/24 - The patient is seen today in room 252. Admitted to the hospital and the intensive care unit on 08/29/2024. The patient is currently on mechanical ventilator, his one from home. He is on volume assist control, rate of 20, tidal volume of 450, FiO2 45% and PEEP of 5. He currently has LR running at 50 cc/h, TPN at 91 cc/h, Zerbaxa and tobramycin. Chest Xray done this morning showed stable airspace opacities. Cultures are positive for pseudomonas aeruginosa, awaiting sensitivities. WBCs 2.69, Hgb 8.9, Hct 31.5, PLT 153, Na 135, K 3.4, Cl 109, HCO3 19, BUN 22, Cr 0.34, Phos 2.4. 09/02/24 - He is seen today in room 252. Admitted to the hospital and ICU on 08/29/24. He continues on mechanical ventilator, his one from home. He remaines on volume assist control, rate of 20, tidal volume of 450, FiO2 45% and PEEP of 5. He continues to have LR running at 50 cc/h, TPN at 91 cc/h, norepinephrine at 0.13 mcg/kg/min, Zebraxa and Tobramycin. Chest XRay this morning showed stable airspace opacities. Continue to await sensitivity of pseudomonas sputum culture. Lab work shows WBCs 3.64, Hgb 9.7, Hct 33.5, PLT 130, Na 133, K 3.9, bicarb 21, BUN 23, Cr 0.36, Ca 7.8, Mg 2.4, Albumin 2.3. 09/03/24 - He is seen in room 252. Admitted to the hospital and ICU on 08/29/24. He continues on mechanical ventilator, his one from home. He remaines on volume assist control, rate of 20, tidal volume of 450, FiO2 45% and PEEP of 5. He continues to have LR running at 50 cc/h, TPN at 91 cc/h, norepinephrine at 0.24 mcg/kg/min, Avycaz and Tobramycin. Zebraxa was discontinued as there was no reported sensitivity to it. Lab work shows WBCs 9.40, Hgb 8.8, Hct 30.6, PLT 100, Na 130, K 3.6, bicarb 23, BUN 25, Cr 0.51, Ca 7.8, Ionized Ca 4.6, Phos 3.3, Mg 2.1, TSH 2.710 and random cortisol 13.1. 09/04/24 - He is seen in room 252. Admitted to the hospital and ICU on 08/29/24. He continues on mechanical ventilator, his one from home. He remaines on volume assist control, rate of 20, tidal volume of 450, FiO2 45% and PEEP of 5. He continues to have LR running at 50 cc/h, TPN at 91 cc/h, norepinephrine at 0.24 mcg/kg/min, Avycaz and Tobramycin. Lab work shows sodium 133, potassium 3.5, bicarb 24, BUN 27, creatinine 0.47, calcium 7.9, ionized calcium 4.6, magnesium 1.9, phosphorus 3.0, total bilirubin 1.7, AST 57, ALT 45, alkaline phosphatase 99. Progress note dated September 05, 2024. 49-year-old male well-known to our service. He is seen today in room 252. He continues on volume assist-control, rate 20, tidal 450, FiO2 45%, PEEP of 5. The patient has refused blood gases. Currently, he is getting TPN at 65 cc an hour, norepinephrine at 1 mcg/min, LR at 50 cc/h. Clinically, the patient is doing well. His chest x-ray remains about the same. Yesterday he was on a hig her dose of norepinephrine, and also was on vasopressin. Both have been weaned off. Current labs include a sodium 136, potassium 4.1, chlorides 101, CO2 28, BUN 30, creatinine 0.37. Glucose 153. Albumin is 2.2. Previous sputum, from August 29 with positive for Pseudomonas aeruginosa. Chest x-ray is largely unchanged. Progress note dated September 06, 2024. 49-year-old male again seen today in the intensive care unit, room 252. He remains on mechanical ventilator, actually his home ventilator, with settings of volume assist-control, rate 20, tidal volume 450, FiO2 45%, PEEP of 5. No blood gases today. The patient has been refusing. He is getting lactated Ringer's at 50 cc an hour, TPN at 65 cc an hour. He continues on the same antibiotics. White count 5.21, hemoglobin 7.9, hematocrit 27.5, and platelet count 64,000. Sodium 141, potassium 3.5, chlorides 102, CO2 32, BUN 25, and creatinine 0.35. Glucose is 152. Calcium is 8. Albumin is 2.1. Chest x-ray is largely unchanged. 09/07/2024, the patient remains on a mechanical ventilator. The patient is having excessive respiratory secretions. Attempts to suction this patient has failed as the secretions are quite thick and the patient has had episodes of bradycardia while suctioning. Remains on TPN at 65 cc an hour and lactated Ringer at 50 cc an hour. Remains on assist-control mode mechanical ventilation at rate of 20, tidal volume of 450, FiO2 of 100% with a PEEP of 8. Patient has refused to have an arterial line. The patient has refused blood gases. Urine output is adequate. No hypotension. He has a double-lumen catheter in his left chest and the left forearm IV line.He is afebrile. He continues to have multidrug-resistant Pseudomonas in his sputum. The patient remains on ceftazidime/avibactam per IDs recommendations. He is also on IV tobramycin. Remains on stress dose hydrocortisone. Blood work shows a white cell count of 6.9, hemoglobin 7.9 and a platelet count of 90. BUN is 24 with a creatinine of 0.33. Sodium is 143 and a potassium level of 3.7. Bicarb level is at 33. Output from the ileostomy bag is high and the net fluid balance is +1.2 L over the past 24 hours. Airway pressures on the mechanical ventilator are elevated with an elevated peak airway pressure around 36 consistent with excessive respiratory secretions and mucous plugs. Chest x-ray shows atelectatic changes infiltrates in lung bases along with some scattered hazy bilateral pulmonary infiltrates. 09/08/2024, the patient is being seen for a follow-up. On today's evaluation, the patient is awake on no sedation. His chest x-ray showing worsening bilateral pulmonary filtrates. Running low-grade fever. A bronchoscopy in the BAL was done yesterday and the results are still pending for now. He remains on assist-control mode at rate of 20, tidal volume of 450, FiO2 of 60% with a PEEP of 8. He remains on lactated Ringer at rate of 50 cc an hour and TPN at rate of 65 cc an hour. He remains on IV Lasix. He remains on ceftazidime/avibactam regarding his multidrug-resistant Pseudomonas. He is also on tobramycin. The white cell count is 6 with a hemoglobin 7.7 and platelet count of 77. Sodium is at 143, BUN 24 with a creatinine of 0.2. Serum bicarb is at 34. LFTs are within normal limits. The patient had no blood cares for today. He has refused blood gases. On a separate note, cardiology was consulted regarding the episodes of bradycardia that the patient is encountering. Upon sectioning, the patient is having episodes of cardiac block, likely third-degree AV block that last around 5 to 8 seconds. Patient was taken off the scopolamine patch. On 09/09/2024, the patient remains on a mechanical ventilator. He is complaining of shortness of breath even while being on the mechanical ventilator. Repeat chest x-ray was done today and the patient has developed diffuse infiltrates bilaterally greater in the lung bases and there is interval worsening in the chest x-ray findings. The bronchoalveolar lavage that was obtained earlier on 09/07/2024 showed Pseudomonas aeruginosa and corynebacterium. The patient remains on ceftazidime avibactam and tobramycin. Vancomycin was also added. He is running a low-grade fever with a Tmax of 100.7. He remains on assist-control mode mechanical ventilation at rate of 20, tidal volume of 450, FiO2 of 60% with a PEEP of 8. The patient did not have a blood gas today. Fluid balance is +2.6 L over the past 24 hours. He is currently on IV Lasix 20 mg IV push every 8 hours. The patient is also on TPN at rate of 65 cc an hour and lactated Ringer at rate of 50 cc an hour. The white cell count is 4.6 with a heme of 7.3 and a platelet count of 72. Sodium is at 144, bicarb is at 34, BUN 22 with a creatinine of 0.38. Chloride is 103. Calcium levels at 7.4, phosphorus 3.6, LFTs are normal. Albumin levels at 2.1. Arousable, able to communicate. No significant cardiac arrhythmias over the past 24 hours. 09/10/2024, patient is awake and alert and communicating. Continues to have on and off episodes of shortness of breath while being on a mechanical ventilator. Oxygenation is borderline and the patient's pulse ox remains low. Unable to obtain any blood gases as the patient has declined arterial blood draws. He is on assist-control mode rate of 20, tidal volume of 450, FiO2 of 70% with a PEEP of 10. Remains on TPN at rate of 35 cc an hour and lactated Ringer at rate of 50 cc an hour. Fluid balance is +2.6 L over the past 24 hours.the white cell count is 6.3, hemoglobin is at 7.4, platelet count is a 73 and the patient remains on therapeutic dose of Lovenox. The patient's sodium levels at 143, K is at 3.3, bicarb is at 40 with a BUN of 21 and a creatinine of 0.8. Blood sugar is 140. The most recent lavage from the right lower lobe was positive for Pseudomonas aeruginosa and corynebacterium. The patient remains on a combination of ceftazidime antibacterial combination, tobramycin and IV vancomycin. Output from ileostomy is in order of 800 cc over the past 8 hours. Remains on IV Lasix. Chest x-ray is unchanged and it shows bilateral pulmonary infiltrates, diffuse increased interstitial lung markings, lines and catheters are in place, tracheostomy tube is in place. 09/11/2024, the patient is stable, awake and alert and communicating. Remains on TPN for nutritional support with rate of 75 cc an hour. Remains on the same mechanical ventilator settings and the patient remains on assist-control mode at rate of 20, tidal volume of 450, FiO2 of 60% with a PEEP of 8. Fluid balance is -50 cc over the past 24 hours and the patient remains on IV Lasix 20 mg every 8 hours. The biotic coverage remains unchanged and the patient remains on a combination of ceftazidime IV Bactrim, tobramycin and vancomycin. The white cell count is at 4.7 with a hemoglobin of 7.1 and a platelet count of 89. BUN is 20 with a creatinine of 0.25. Sodium levels at 142. Serum iron levels at 16. Vancomycin trough is at 17. Follow-up chest x-ray from today shows stable bilateral pulmonary filtrates and pleural effusions bilaterally. Tracheostomy tube remains in good location. The patient continues to have high output through the ileostomy. Currently afebrile. No cardiac arrhythmias have been noted. 09/12/2024, patient is resting comfortably in bed. Remains on a mechanical ventilator. Unable to wean. Chest x-ray still showing bilateral pulmonary filtrates consistent with pneumonia. The patient is on assist-control mode at rate of 20, tidal volume of 450, FiO2 of 50% and a PEEP of 8. Remains negative fluid balance as the patient is being diuresed with IV Lasix. Fluid balance is -1 L over the past 24 hours. Remains on Lasix 20 mg IV push every 8 hours. Hemoglobin from this morning was 5.8. Repeat hemoglobin came back at 7.4. Platelet counts are stable. No evidence of any GI bleeding. Remains on Lovenox therapeutic dose. Remains on TPN at rate of 75 cc an hour. White cell count is at 5, platelet count is at 93, BUN is 25 with a creatinine 0.4. Sodium levels at 144 and a potassium level is at 3.6. Ileostomy still functioning. Remains on broad-spectrum antibiotics. Remains on ceftolozane/tazobactam. Remains on vancomycin. Remains on stress dose hydrocortisone. 09/13/2024, the patient is being seen for a follow-up. No change in his condition over the past 24 hours. Remains on a mechanical ventilator. Awake and alert and communicating. Started on fentanyl patch and his pain is under better control and the patient is using fentanyl patch 75 mcg every 72 hours. Remains assist-control mechanical ventilation at rate of 20, tidal volume of 450, FiO2 50% with a PEEP of 8. Chest x-ray from today shows stable bilateral pulmonary infiltrates, no significant change compared to yesterday and the tracheostomy tube remains in place. The patient continues to have multifocal airspace disease. Fluid balance is +30 cc over the past 24 hours. TPN is running at a rate of 75 cc an hour. Afebrile. Hemoglobin in this morning was at 5.8. Recheck was 6.1. The platelet count is 817. Sodium is at 148, potassium 3.2, BUN 26 with a creatinine of 0.44. Serum bicarb is at 38. The patient has a triglyceride level of 152. Remains on ceftolozane tazobactam and vancomycin. On 09/28/2024, the patient is being seen for a follow-up. The patient remains ventilator dependent. This morning, the patient remains on a assist-control mode of mechanical ventilation at rate of 36, tidal volume of 400, FiO2 30% with a PEEP of 5. The blood gases from today showed pH of 7.57 with a PCO2 of 30 and PO2 of 70. Chest x-ray shows ongoing diffuse interstitial infiltrates and wor sening airspace disease in the right lung base and the patient is having limited amount of respiratory secretions. Currently on propofol running at 20 mcg/kg/min. 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 Blood culture was positive on 09/15/2024 and 09/18/2024 and the patient is currently on Eraxis. Repeat blood culture on 09/22/2024 was negative. ID is on the case. Lines were all removed and the patient has a right subclavian triple-lumen catheter: Inserted on 09/17/2024. The patient is currently on no pressors. The patient also has developed an acute kidney injury. The patient was started on hemodialysis on 09/22/2024 and the patient has a left femoral triple-lumen catheter in place. Last hemodialysis session was on 09/26/2024 and another hemodialysis session is to follow this morning. He remains on TPN running at 33 cc an hour. Arousable. Sedated. Blood work from today shows a BUN of 28 with a creatinine of 1.4. Sodium is at 129 and potassium is at 4.4. WBC count is 6 with a heme of 7.1 platelet count of 206. Afebrile for now. Ileostomy continues to show increased output. On 09/29/2024, the patient is being seen for a follow-up. On today's evaluation, the patient is arousable and awake and following commands. He is on propofol running at 20 mcg/kg/min. Remains on a mechanical ventilator and the patient is calm and comfortable with limited respiratory secretions. He is on assist- control at rate of 24, tidal volume of 400, FiO2 of 30% with a PEEP of 8. pH is at 7.44 with a [id number] and PO2 of 80. Chest x-ray remains unchanged. Tracheostomy tube is in location. Remains on TPN for nutritional support arriving at 55 cc an hour. Remains on low-dose norepinephrine running at 0.01 mcg/kg/min. The patient underwent hemodialysis on 09/28/2024 with a total of 2 L of ultrafiltration. No urine output for now. Lab work is stable. The white seconds at 5.2 with a hemoglobin of 7 and a platelet count of 206. Electrolytes all within normal limits. Potassium levels are 3.6. Sodium is 134. BUN is 20 with a creatinine of 1.1. He remains on IV Eraxis. Most recent blood cultures been negative. Afebrile. Objective - Vital Signs Vital signs: Vital Signs Temp 99.7 F H 09/29/24 00:00 Pulse 68 09/29/24 08:17 Resp 24 09/29/24 07:00 BP 100/45 09/29/24 07:00 Pulse Ox 97 09/29/24 07:00 FiO2 30 09/29/24 07:53 Intake & Output 09/28/24 09/29/24 09/29/24 18:59 06:59 18:59 Intake Total 3313.619 1018.637 68 Output Total 2965 25 0 Balance 348.619 993.637 68 Weight 107 kg 106.4 kg Intake: IV 640 816 68 0.9 KVO 120 120 10 Pressure Bag 36 36 3 TPN 484 660 55 Intake, IV Titration 173.619 202.637 Amount Norepinephrine 8 mg In 81.558 27.608 Sodium Chloride 0.9% 250 ml @ 0.03 MCG/KG/MIN 6. 513 mls/hr IV .Q24H ANNIE Rx#:[id number] propofoL 1,000 mg In 92.061 175.029 Empty Bag 1 bag @ 50 MCG/ KG/MIN 32.34 mls/hr IV . Q3H6M ANNIE Rx#:[id number] Hemodialysis 2500 Output: Drainage 450 Medial Abdomen 450 Urine 15 25 0 Hemodialysis 500 Hemodialysis Net Amount 2000 Other: Voiding Method Indwelling Catheter Indwelling Catheter ABP, PAP, CO, CI - Last Documented Arterial Blood Pressure 46/37 - Exam No acute distress, currently connected to the ventilator. He has a tracheostomy tube in place. The patient has a #6 [address]iley tracheostomy tube in place. Lethargic, follows simple commands. Profoundly weak in all 4 extremities. The patient is currently on propofol for sedation. Able to communicate. HEENT examination is grossly unremarkable. Mucous membranes are moist. No oral lesions. Tracheostomy tube is in place. The patient has a right subclavian triple-lumen catheter in place Neck supple. Full range of motion. No adenopathy thyromegaly or neck vein dist ention. Cardiovascular examination reveals regular rhythm rate. S1-S2 normal. No S3 or S4. No discernible murmur noted. Lungs reveal clear breath sounds. Breath sounds are diminished bilaterally and scattered rhonchi heard throughout the lung craft bilaterally. Tracheostomy tube in place. Abdomen reveals an enterocutaneous fistula, normal bowel sounds. No tenderness. No masses. The patient has a left femoral dialysis catheter in place. Extremities are intact. No cyanosis clubbing and there is edema in his left lower extremity and upper extremities bilaterally. The patient has a below-knee amputation his right lower extremity. Skin is without rash or lesion. Neurologic examination is brief but nonfocal. He does have significant muscle atrophy, and contractures. He has a right below the knee amputation. Generalized profound weakness. Weak cough. Weak motor functions. - Labs CBC & Chem 7: 09/29/24 05:45 09/29/24 05:45 Labs: Abnormal Lab Results - Last 24 Hours (Table) 09/28/24 09/28/24 09/29/24 Range/Units 17:51 23:42 05:23 RBC (4.40-5.60) 10*6/uL Hgb (13.0-17.0) g/dL Hct (39.6-50.0) % MCH (27.0-32.0) pg MCHC (32.0-37.0) g/dL ABG pCO2 46 H (35-45) mmHg ABG pO2 80 L (83-108) mmHg ABG HCO3 32 H (21-25) mmol/L ABG Total CO2 33 H (19-24) mmol/L ABG O2 Saturation 97.2 H (94-97) % Hemoglobin 7.4 L (13.0-17.5) gm/dL Sodium (137-145) mmol/L Glucose (74-99) mg/dL POC Glucose (mg/dL) 117 H 128 H (70-110) mg/dL Calcium (8.4-10.2) mg/dL 09/29/24 09/29/24 09/29/24 Range/Units 05:45 05:45 05:45 RBC 2.69 L (4.40-5.60) 10*6/uL Hgb 7.0 L (13.0-17.0) g/dL Hct 23.6 L (39.6-50.0) % MCH 26.0 L (27.0-32.0) pg MCHC 29.7 L (32.0-37.0) g/dL ABG pCO2 (35-45) mmHg ABG pO2 (83-108) mmHg ABG HCO3 (21-25) mmol/L ABG Total CO2 (19-24) mmol/L ABG O2 Saturation (94-97) % Hemoglobin (13.0-17.5) gm/dL Sodium 134 L (137-145) mmol/L Glucose 108 H (74-99) mg/dL POC Glucose (mg/dL) 115 H (70-110) mg/dL Calcium 8.1 L (8.4-10.2) mg/dL Microbiology - Last 24 Hours (Table) 09/22/24 18:46 Blood Culture - Final Blood Assessment and Plan Plan: Acute on chronic hypoxic respiratory failure. The patient remains on a mechanical ventilator. The patient has bilateral pleural effusion and bilateral pneumonia with multidrug-resistant Pseudomonas aeruginosa. The patient was initially treated with ceftazidime/tazobactam and tobramycin combination. Repeat bronchoscopy on 09/07/2024 shows a positive Pseudomonas aeruginosa and corynebacterium in the BAL collected from the right lower lobe. The patient was subsequently treated with ceftolozane /tazobactam and vancomycin. There is also development of bilateral pleural effusion and the patient also has an area of consolidation in the right lung base. The respiratory status is stable. Chest x-ray findings remain stable. Sepsis with systemic fungemia and blood culture was positive for Bella parapsilosis, currently on IV Eraxis, initial blood culture was positive on 09/15/2024 and repeat cultures from 09/18/2024 was positive for Bella. Most recent blood culture from 09/22/2024 was negative. Septic shock, recovered, currently off pressors Acute kidney injury, currently on hemodialysis, last hemodialysis session was on 09/28/2024 with a total of 2 L of ultrafiltration History of severe tracheal stenosis, S/P tracheostomy. 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 Chronic anemia, hemoglobin stable History of DVT. History of CVA. History of right below-knee amputation. Previous history of asystole/cardiac arrest, 2021. History of Crohn's disease, S/P enterocutaneous fistula, diverting ileostomy. The patient remains on TPN for nutritional support. Plan: Continue ventilator support, will drop the PEEP down to 6, Wean off pressors and discontinue Continue sedation with propofol and weaning down to 10 mcg/kg/min Continue IV Eraxis Patient is currently off pressors hemodialysis to be completed today per nephrology Continues on TPN at 55 cc an hour, IV fluids or KVO continue stress dose hydrocortisone Heparin subcu for DVT prophylaxis fentanyl patch to 100 mcg on a daily basis for better pain control IV Protonix Monitor ileostomy output Monitor hemoglobin Prognosis remains extremely poor due to above-mentioned comorbidities. Will continue to follow and make further recommendation based on his progress. This evaluation was done at 35 minutes. Working on long-term placement in a facility with capability to undergo mechanical ventilation and hemodialysis. Time with Patient: Greater than 30
--- NOTE | 2024-09-29 16:53 | P.PN ---
Subjective Progress Note Date: 09/28/24 Principal diagnosis: Reason for follow-up is sepsis and pneumonia/candidemia Patient is a 49-year-old male with a past medical history significant for CVA TIA DVT pneumonia history of complicated Crohn's disease in this patient who did have multiple abdominal surgeries patient also have a tracheostomy has been brought to the hospital with Generalized weakness did have a fever concerning for pneumonia on today's evaluation that is 09/28/2024, patient has been afebrile, patient is currently intubated on the vent FiO2 is currently 30% no significant purulent secretions, no other changes reported. Patient white count 6.01, creatinine 1.40 Objective - Vital Signs Vital signs: Vital Signs Temp 98.1 F 09/28/24 04:00 Pulse 64 09/28/24 15:18 Resp 36 H 09/28/24 15:00 BP 130/59 09/28/24 15:00 Pulse Ox 98 09/28/24 15:00 FiO2 30 09/28/24 15:00 Intake & Output 09/27/24 09/28/24 09/28/24 18:59 06:59 18:59 Intake Total 1089.109 0333.087 573.580 Output Total 1170 1210 465 Balance 84.292 311.087 108.580 Weight 107 kg 107 kg Intake: IV 1098 506 436 0.9 KVO 130 110 90 Anidulafungin 100 mg In 100 Sodium Chloride 0.9% 100 ml @ 84 mls/hr IVPB DAILY [facility] Rx#:[id number] Magnesium Sulfate-D5w Pmx 200 1 gm In Dextrose/Water 1 100ml.bag @ 100 mls/hr IVPB Q1H [facility] Rx#: [id number] Potassium Chloride 20 meq 200 In Water For Injection 1 100ml.bag @ 50 mls/hr IVPB Q2H [facility] Rx#: [id number] Pressure Bag 39 33 27 TPN 429 363 319 Intake, IV Titration 038.878 1354.087 137.580 Amount Mvi, Adult No.4 with Vit 800.25 K 10 ml Trace (Conc-1Ml/ Dose) 1 ml Sodium Acetate 80 meq Sodium Chloride 4Meq/ml Vial 32 meq Calcium Gluconate 0.5 gm Potassium Chloride 14 meq Magnesium Sulfate gm 0.5 gm In Amino Acid 5%-D15w 1,000 ml @ 33 mls/hr IV .Q24H [facility] Rx#:[id number] Norepinephrine 8 mg In 12.918 30.322 45.519 Sodium Chloride 0.9% 250 ml @ 0.03 MCG/KG/MIN 6. 513 mls/hr IV .Q24H [facility] Rx#:[id number] propofoL 1,000 mg In 143.374 184.515 92.061 Empty Bag 1 bag @ 50 MCG/ KG/MIN 32.34 mls/hr IV . Q3H6M [facility] Rx#:[id number] Output: Drainage 1200 450 Medial Abdomen 1200 450 Urine 20 10 15 Stool 1150 Other: Voiding Method Indwelling Catheter Indwelling Catheter Indwelling Catheter ABP, PAP, CO, CI - Last Documented Arterial Blood Pressure 50/37 - Exam GENERAL DESCRIPTION: Middle-age male intubated on the vent RESPIRATORY SYSTEM: Unlabored breathing , decreased breath sounds at bases HEART: S1 S2 regular rate and rhythm , ABDOMEN: Soft , no tenderness EXTREMITIES: Swelling to the leg - Labs CBC & Chem 7: 09/29/24 05:45 09/29/24 05:45 Labs: Abnormal Lab Results - Last 24 Hours (Table) 09/28/24 09/28/24 09/28/24 Range/Units 05:10 05:24 05:24 RBC 2.73 L (4.40-5.60) 10*6/uL Hgb 7.2 L (13.0-17.0) g/dL Hct 23.1 L (39.6-50.0) % MCH 26.4 L (27.0-32.0) pg MCHC 31.2 L (32.0-37.0) g/dL Immature Gran # 0.06 H (0.00-0.04) 10*3/uL ABG pH 7.57 H* (7.35-7.45) ABG pCO2 30 L (35-45) mmHg ABG pO2 70 L (83-108) mmHg ABG HCO3 28 H (21-25) mmol/L ABG Total CO2 29 H (19-24) mmol/L Hemoglobin 7.4 L (13.0-17.5) gm/dL Sodium 129 L (137-145) mmol/L Chloride 97 L (98-107) mmol/L BUN 28 H (9-20) mg/dL Creatinine 1.40 H (0.66-1.25) mg/dL Calcium 8.0 L (8.4-10.2) mg/dL Microbiology - Last 24 Hours (Table) 09/22/24 18:46 Blood Culture - Final Blood Assessment and Plan (1) Pneumonia Current Visit: Yes Status: Acute Code(s): J18.9 - PNEUMONIA, UNSPECIFIED ORGANISM SNOMED Code(s): 294109172 (2) Sepsis Current Visit: Yes Status: Acute Code(s): A41.9 - SEPSIS, UNSPECIFIED ORGANISM SNOMED Code(s): 04818269 (3) Candidemia Current Visit: Yes Status: Acute Code(s): B37.7 - CANDIDAL SEPSIS SNOMED Code(s): 252607675 Plan: 1patient is a hospital with sepsis in this patient who did have fever tachycardia elevated lactic acid upon meeting criteria for SIRS/sepsis source likely pneumonia 2-patient is status post bronchoscopy lavage results currently growing Pseudomonas that is resistant to Avycaz and corynebacterium, sensitivity on corynebacterium is pending 3-patient with Pseudomonas pneumonia for the patient has completed his antibiotic therapy 4-patient did have candidemia source is likely left chest wall PICC line which has been discontinued has been sent for the culture central line placed by supervisor seaming, blood culture repeat on 09/18/2024 positive blood culture repeat 2024 so far negative. 5patient remains to be afebrile white count has been normal repeat blood cult ure from 09/22/2024 has been negative patient is cleared to get a new PICC line and also recommend to discontinue the central line that was placed and the patient did have fungemia, 6- duration of Eraxis will be total of 2 weeks from the negative blood culture, that would make last day of Eraxis 10/06/2024 Dictation was produced using [employer] dictation software. please excuse any grammatical, word or spelling errors. Time with Patient: Less than 30
--- NOTE | 2024-09-29 16:54 | P.PN ---
Subjective Progress Note Date: 09/29/24 Principal diagnosis: Reason for follow-up is sepsis and pneumonia/candidemia Patient is a 49-year-old male with a past medical history significant for CVA TIA DVT pneumonia history of complicated Crohn's disease in this patient who did have multiple abdominal surgeries patient also have a tracheostomy has been brought to the hospital with Generalized weakness did have a fever concerning for pneumonia on today's evaluation that is 09/29/2024, Patient is afebrile this morning patient remains to be debated on the vent FiO2 is currently tolerated 30% no significant purulent secretion through the ET already the change reported by the mother at the bedside. Patient white count is 5.26 creatinine is 1.11 Objective - Vital Signs Vital signs: Vital Signs Temp 98.4 F 09/29/24 12:30 Pulse 82 09/29/24 15:56 Resp 25 H 09/29/24 14:30 BP 84/44 09/29/24 14:30 Pulse Ox 96 09/29/24 14:30 FiO2 30 09/29/24 15:42 Intake & Output 09/28/24 09/29/24 09/29/24 18:59 06:59 18:59 Intake Total 3313.619 2247.291 1015.855 Output Total 2965 25 10 Balance 348.619 109.653 4293.855 Weight 107 kg 106.4 kg Intake: IV 640 816 626 0.9 KVO 120 120 20 Anidulafungin 100 mg In 100 Sodium Chloride 0.9% 100 ml @ 84 mls/hr IVPB DAILY [facility] Rx#:[id number] Potassium Chloride 20 meq 100 In Water For Injection 1 100ml.bag @ 50 mls/hr IVPB Q2H [facility] Rx#: [id number] Pressure Bag 36 36 21 TPN 484 660 385 Intake, IV Titration 173.619 722.255 1750.855 Amount Mvi, Adult No.4 with Vit 1055.083 K 10 ml Trace (Conc-1Ml/ Dose) 1 ml Sodium Acetate 80 meq Sodium Chloride 4Meq/ml Vial 44 meq Calcium Gluconate 0.5 gm Potassium Chloride 24 meq Magnesium Sulfate gm 0. 75 gm In Amino Acids 5 %/ Dextrose 20 % 1,000 ml @ 55 mls/hr IV .[id number] [facility] Rx#:[id number] Norepinephrine 8 mg In 81.558 27.608 34.772 Sodium Chloride 0.9% 250 ml @ 0.03 MCG/KG/MIN 6. 513 mls/hr IV .Q24H [facility] Rx#:[id number] propofoL 1,000 mg In 92.061 175.029 100.000 Empty Bag 1 bag @ 50 MCG/ KG/MIN 32.34 mls/hr IV . Q3H6M [facility] Rx#:[id number] Hemodialysis 2500 Output: Drainage 450 Medial Abdomen 450 Urine 15 25 10 Hemodialysis 500 Hemodialysis Net Amount 1999 Other: Voiding Method Indwelling Catheter Indwelling Catheter Indwelling Catheter ABP, PAP, CO, CI - Last Documented Arterial Blood Pressure 64/48 - Exam GENERAL DESCRIPTION: Middle-age male intubated on the vent RESPIRATORY SYSTEM: Unlabored breathing , decreased breath sounds at bases HEART: S1 S2 regular rate and rhythm , ABDOMEN: Soft , no tenderness EXTREMITIES: Swelling to the leg - Labs CBC & Chem 7: 09/29/24 05:45 09/29/24 05:45 Labs: Abnormal Lab Results - Last 24 Hours (Table) 09/28/24 09/28/24 09/29/24 Range/Units 17:51 23:42 05:23 RBC (4.40-5.60) 10*6/uL Hgb (13.0-17.0) g/dL Hct (39.6-50.0) % MCH (27.0-32.0) pg MCHC (32.0-37.0) g/dL ABG pCO2 46 H (35-45) mmHg ABG pO2 80 L (83-108) mmHg ABG HCO3 32 H (21-25) mmol/L ABG Total CO2 33 H (19-24) mmol/L ABG O2 Saturation 97.2 H (94-97) % Hemoglobin 7.4 L (13.0-17.5) gm/dL Sodium (137-145) mmol/L Glucose (74-99) mg/dL POC Glucose (mg/dL) 117 H 128 H (70-110) mg/dL Calcium (8.4-10.2) mg/dL 09/29/24 09/29/24 09/29/24 Range/Units 05:45 05:45 05:45 RBC 2.69 L (4.40-5.60) 10*6/uL Hgb 7.0 L (13.0-17.0) g/dL Hct 23.6 L (39.6-50.0) % MCH 26.0 L (27.0-32.0) pg MCHC 29.7 L (32.0-37.0) g/dL ABG pCO2 (35-45) mmHg ABG pO2 (83-108) mmHg ABG HCO3 (21-25) mmol/L ABG Total CO2 (19-24) mmol/L ABG O2 Saturation (94-97) % Hemoglobin (13.0-17.5) gm/dL Sodium 134 L (137-145) mmol/L Glucose 108 H (74-99) mg/dL POC Glucose (mg/dL) 115 H (70-110) mg/dL Calcium 8.1 L (8.4-10.2) mg/dL Assessment and Plan (1) Pneumonia Current Visit: Yes Status: Acute Code(s): J18.9 - PNEUMONIA, UNSPECIFIED ORGANISM SNOMED Code(s): 187788530 (2) Sepsis Current Visit: Yes Status: Acute Code(s): A41.9 - SEPSIS, UNSPECIFIED ORGANISM SNOMED Code(s): 80948800 (3) Candidemia Current Visit: Yes Status: Acute Code(s): B37.7 - CANDIDAL SEPSIS SNOMED Code(s): 389657782 Plan: 1patient is a hospital with sepsis in this patient who did have fever tachycardia elevated lactic acid upon meeting criteria for SIRS/sepsis source likely pneumonia 2-patient is status post bronchoscopy lavage results currently growing Pseudomonas that is resistant to Avycaz and corynebacterium, sensitivity on corynebacterium is pending 3-patient with Pseudomonas pneumonia for the patient has completed his antibiotic therapy 4-patient did have candidemia source is likely left chest wall PICC line which has been discontinued has been sent for the culture central line placed by certified procedural coder, blood culture repeat on 09/18/2024 positive blood culture repeat 09/22/2024 so far negative. 5patient repeat blood culture from 09/22/2024 has been negative patient is cleared to get a new PICC line which is currently waiting and also recommend to discontinue the central line that was placed and the patient did have fungemia, 6-patient to continue with Eraxis with the current last day of antifungal will be 10/06/2024 Dictation was produced using [employer] dictation software. please excuse any grammatical, word or spelling errors. Time with Patient: Less than 30
[2024-09-29 18:05] LABS: Glucose,Whole Blood 113 mg/dL (70-110)
--- NOTE | 2024-09-29 18:16 | P.PN ---
Progress Note - Text Progress Note Date: 09/29/24 Chief Complaint: Short of breath 49-year-old patient, follows with Dr. Murcia History of paraplegia, home vent at night, tracheostomy multiple admissions to the ICU for recurrent pneumonia. Patient's previous bronchial cultures been positive for Pseudomonas. He was discharged recently on IV cefepime. Also has a history of Crohn's disease with previous colectomy diverting ileostomy. History of DVT for which patient is on subcu Lovenox. Also had drug-resistant MRSA Pseudomonas. Patient currently does not have areas significant trach secretions. He has continues TPN. Has a right BKA. He does have slight movement in the right hand. Able to follow commands by nodding his head. Answering questions. He is scared by his elder son open. I was also the DPOA. August 30: Overnight patient started having more secretions through the tracheostomy. Vancomycin was added. Also blood pressure running low patient was put on Levophed drip. Otherwise sinus rhythm. Patient remains on the ventilator. Will also send off stool for C. difficile. Also patient IV cefepime. Getting TPN. August 31: ICU. Patient had positive fluid balance. Was given IV Lasix earlier. Remains on Levophed. Spiking fevers. Getting TPN. Stool negative for C. difficile. Patient is growing MDRO Pseudomonas aeruginosa. ID is ordered IV Zerbaxa. Which is currently not available. Patient's friend is visiting him in the ICU. Light trach secretion September 01: ICU. On the ventilator. FiO2 45%. PEEP of 5. Continues to have light trach secretions. Sputum cultures again growing Pseudomonas. Zerbaxa was obtained and resumed. Blood pressure running low. On Levophed. Patient's younger son at the bedside. Colostomy working fine. Has been spiking fevers. Cooling blanket. Ice packs. September 02: ICU. Ventilator FiO2 45%. PEEP of 5. Continues to have some trach secretions. IV Zerbaxa IV tobramycin. TPN lipids to continue. Also Levophed. Patient started cooling blankets since yesterday for temperatures. Along with the nurse speech therapy records were reviewed from last few admissions. Patient with multiple MBS and bedside swallow eval. No trouble with swallowing. Patient put on a chopped diet. Thin liquids. Patient did spike a fever of 101.7 earlier today. Low ionized calcium. IV gluconate given. September 03: ICU. On ventilator FiO2 45%. PEEP of 5. Mild trach secretions. Getting IV TPN lipids. IV tobramycin. Zerbaxa was substituted to Avycaz. By ID. No fever per se since yesterday. For blood pressure patient is also on Levophed and vasopressin. September 04: ICU. On ventilator FiO2 45%. PEEP of 5. Clear trach secretions. Getting IV TPN lipids. IV tobramycin. And IV Avycaz. Remains afebrile.. On Levophed and vasopressin. Awake. 09/06/2024 Patient is seen and evaluated in ICU; remains on mechanical ventilator, actually his home ventilator, with settings of volume assist-control, rate 20, tidal volume 450, FiO2 45%, PEEP of 5. - patient has been refusing blood; no ABGs to. He is getting lactated Ringer's at 50 cc an hour, TPN at 65 cc an hour. - patient remains on the same antibiotics. - Labs reviewed which reveal white count 5.21, hemoglobin 7.9, hematocrit 27.5, and platelet count 64,000. Sodium 141, potassium 3.5, chlorides 102, CO2 32, BUN 25, and creatinine 0.35. Glucose is 152. Calcium is 8. Albumin is 2.1. -Chest x-ray is largely unchanged. Critical care managing mechanical ventilation; recommending to add scopolamine patch for increased secretion -Patient remains on Avycaz and tobramycin - Continue with current TPN 09/07 Patient remains in the ICU lethargic. He is s/p tracheostomy Overnight he was more hypoxic they have to increase PEEP to 8. Also has a lot of secretions when needed for secretions suctioning to try to become apneic per Staff. Patient currently receiving Avycaz and tobramycin. on TPN also 09/08 Patient remains in the ICU awake and alert status post tracheostomy. He has contractures of both upper and lower extremities He is complaining from pain in his lungs. He is status post flexible bronchoscopy and bronchoalveolar lavage yesterday. He has previous sputum culture positive for Pseudomonas currently covered with ceftazidime and tobramycin. He is also on Lovenox 90 mg 09/09 Patient still in the ICU on mechanical ventilation via tracheostomy. PEEP is 8.0 as is yesterday Also he spiked little fever to 100.7. IV vancomycin is added to tobramycin and ceftazidime He is getting also bronchoscopy follow-up culture results 09/10 Patient feels clinically the same, he still getting breathing via mechanical ventilation through his tracheostomy with PEEP of 8. Patient feels he is required suctioning through his tracheostomy tube. He denies chest pain or pain anywhere else he can communicate by head signs and gestures. Hemodynamically stable and afebrile hemoglobin 7.4 platelet count 73 Glucose is controlled potassium 3.3 He remains on broad-spectrum antibiotic Rocephin at this time tobramycin and IV vancomycin added yesterday because he had low-grade fever. He is getting TPN. IV fluid Ringer lactate was stopped and patient was started on IV Lasix 20 mg 3 times a day continue with therapeutic dose of Lovenox as well 09/11 Patient remains in the ICU Remains on mechanical ventilation via tracheostomy He status post bronchoalveolar lavage 2 days ago, culture is growing Pseudomonas aeruginosa and corynebacterium Patient remains on broad-spectrum antibiotics with IV vancomycin, tobramycin, ceftazidime On IV Lasix also is on therapeutic dose of Lovenox 90 mg twice daily No IV fluids 09/12 Patient remains in the ICU Clinically close to what he was over the last 2 days still getting oxygen via his tracheostomy He remains on broad-spectrum antibiotic with Ceftin this time and IV vancomycin. Also he is on IV Lasix 20 mg and therapeutic dose of Lovenox. 09/13 Patient remains in the ICU on mechanical ventilation via tracheostomy Patient looks better today, he breathing better Less secretion Fentanyl patch increased 09/14. Patient seen and examined. Patient continues to be on mechanical ventilation via trach mask. Currently on TPN. Currently on IV Zerbaxa and vancomycin 09/15. Patient seen and examined.Vital signs done showed the patient overnight, heart rate 106, blood pressure 107/40, currently on ventilation. Labs reviewed showed WBC 7.27, hemoglobin 7.5, sodium 148 on potassium 4.3, BUN 23, creatinine 0.47 09/16. Patient seen and examined labs reviewed showing WBC 5.45, hemoglobin 9.6, platelet count 131, sodium 146, potassium 4.1, BUN 20, creatinine 0.47. Continue small amount of Levophed. Currently on Zerbaxa and vancomycin. Currently on TPN September 17: ICU. Patient has taken a turn for the worse today. Significant thick white secretions from the trach. Sinus rhythm. Receiving TPN. Patient is on Levophed and vasopressor. Rather high dose. FiO2 [address] of 10. [address] Ho earlier spoke to the patient/family. Remains full code September 18: ICU. Intubated FiO2 70 PEEP of 12. Sinus rhythm. Drips include IV propofol at 50 and Levophed at 0.13. Patient is off vasopressin. Patient secretions. Family at the bedside. September 19: ICU. Intubated. FiO2 50 and a PEEP of 12. Drips include IV Levophed and propofol. Also started on Lasix drip 10 mg an hour yesterday. Secretions present. September 20: ICU. Intubated. FiO2 50 and a PEEP of 12. Hemoglobin 6.3. Secondary to blood being given. Patient been on and off Levophed. On propofol. Lipids have been held. Continues with TPN. Lasix drip was discontinued. Lovenox has been held because of low hemoglobin. Unable anemia is felt to be combination of regular blood draws and possible element element of hemolysis from all the infection. No dark stool. Family at the bedside September 21: ICU. Intubated. Received 2 units of blood yesterday. Hemoglobin 7.6 today. Per nephrology renal replacement therapy. Dialysis access placed by Dr. Cadena. Patient earlier today on Levophed. Propofol. Getting TPN. Sinus rhythm. Urine output decreased September 22: ICU. Intubated. FiO2 15 of PEEP of 12. Seen earlier today. Dialysis being started. Been on IV Levophed propofol. Sinus rhythm. TPN. Sinus rhythm. September 23: ICU. Intubated. Due for another dialysis today. Saw the patient earlier today. Remains on IV Levophed propofol. Sinus rhythm. TPN. On fentanyl patch. September 24: ICU. Intubated. FiO2 40 and PEEP of 12. Remains on IV Levophed and propofol. IV TPN. Decrease trach secretions. IV antibiotics. Was due for dialysis earlier today. September 25: ICU. Intubated. FiO2 30%. Patient getting IV Levophed and propofol. IV TPN. Dialysis today. Receiving IV antibiotics. Does opens eyes occasionally. Some commands per nursing. September 26: ICU. Intubated. FiO2 30 and a PEEP of 8. Had 2 L hemodialysis removed yesterday. Getting hemodialysis today. Aiming for 2 to 3 L. Patient is on propofol. Currently Levophed on hold. Getting TPN. Patient is actually awake and following commands. Sinus rhythm. September 27: ICU. Intubated. FiO2 39 PEEP of 8. No dialysis today. Remains on IV Levophed propofol. TPN. There is a bedside. Patient asked me how is he doing. Had a lengthy information in terms of his guarded prognosis. Did tell him it is his choice about how he wishes to proceed. He needs to decide between treatment benefits versus in the suffering because of that entails from treatment and his recurrent infections etc. Especially in the context of decreased activity. Kidney failure, respiratory failure etc. September 28: ICU. Intubated. FiO2 30 and a PEEP of 8. For dialysis today. Off Levophed this morning. IV propofol. TPN. Some clear light to trach secretions. Colostomy working. Poor urine output. September 29: ICU. Intubated. IV propofol Levophed. TPN. Awake. Discussed with Dr. Holt. Prognosis very poor. Probably treatment is the point of getting futile. Patient needs about 34 more days to go to long-term ventilator setting. Active Medications Albuterol/Ipratropium (Ipratropium-Albuterol 3 Ml Neb) 3 ml INHALATION RT-Q4H PRN PRN Reason: shortness of breath Last Admin: 09/29/24 15:43 Dose: 3 ml Artificial Tears (Artificial Tears-Hypromellose Drops 15 Ml Btl) 1 drops BOTH EYES QID PRN PRN Reason: Dry Eye(s) Last Admin: 09/04/24 12:52 Dose: 1 drops Chlorhexidine Gluconate (Chlorhexidine Gluconate 15 Ml Cup) 15 ml MUCOUS MEM BID ANNIE Last Admin: 09/29/24 08:02 Dose: 15 ml Dextrose/Water (Dextrose 50% Syringe 50 Ml) 25 ml IVP PER PROTOCOL PRN; Protocol PRN Reason: Hypoglycemia Dextrose/Water (Dextrose 50% Syringe 50 Ml) 50 ml IVP PER PROTOCOL PRN; Protocol PRN Reason: Hypoglycemia Fentanyl (Fentanyl 100mcg/Hr Patch) 1 patch TRANSDERM Q72H ANNIE; Protocol Last Admin: 09/28/24 10:02 Dose: 1 patch Heparin Sodium (Porcine) (Heparin Sodium,Porcine 5,000 Unit/Ml 1 Ml Vial) 5,000 unit SQ Q8HR ANNIE Last Admin: 09/29/24 15:58 Dose: 5,000 unit Hydrocortisone Sodium Succinate (Hydrocortisone Succinate 100 Mg/2 Ml Vial) 50 mg IV Q12HR [facility] Last Admin: 09/29/24 08:03 Dose: 50 mg Hydromorphone HCl (Hydromorphone 1 Mg/Ml 1 Ml Syringe) 1 mg IVP Q3HR PRN PRN Reason: Moderate Pain (Scale 4 to 6) Last Admin: 09/29/24 17:54 Dose: 1 mg Anidulafungin 100 mg/ Sodium (Chloride) 130 mls @ 84 mls/hr IVPB DAILY [facility]; Protocol Last Admin: 09/29/24 08:02 Dose: 84 mls/hr Propofol 1,000 mg/ IV Solution 100 mls @ 32.34 mls/hr IV .Q3H6M [facility]; Protocol Last Admin: 09/29/24 16:09 Dose: Not Given Norepinephrine Bitartrate 8 mg (/ Sodium Chloride) 258 mls @ 6.513 mls/hr IV .Q24H [facility]; Protocol Last Admin: 09/29/24 09:42 Dose: Not Given Parenteral Vitamin Supplement 10 ml/ Zinc/Copper/Manganese/Selenium 1 ml/ Sodium Acetate 80 meq/ Sodium Chloride 44 meq / Calcium Gluconate 0.5 gm/Potassium Chloride 24 meq/Magnesium Sulfate 0.75 gm/Amino Acids/Dextrose 1,080.5 mls @ 55 mls/hr IV .[id number] [facility] Stop: 09/30/24 04:30 Last Admin: 09/29/24 09:42 Dose: 55 mls/hr Parenteral Vitamin Supplement 10 ml/ Zinc/Copper/Manganese/Selenium 1 ml/ Sodium Acetate 80 meq/ Sodium Chloride 44 meq / Calcium Gluconate 0.5 gm/Potassium Chloride 34 meq/Magnesium Sulfate 0.75 gm/Amino Acids/Dextrose 1,085.5 mls @ 55 mls/hr IV .[id number] [facility] Insulin Human Lispro (Insulin Lispro (Humalog) 100 Unit/Ml 10 Ml Vl) 0 unit SQ Q6HR [facility]; Protocol Last Admin: 09/29/24 18:05 Dose: Not Given Lorazepam (Lorazepam 1 Mg/0.5 Ml Vial) 0.5 mg IV Q6HR PRN PRN Reason: Anxiety Last Admin: 09/15/24 18:26 Dose: 0.5 mg Miscellaneous Information (Pneumonia Protocol Utilized 1 Each Misc) 1 each PO ONCE PRN PRN Reason: Per Protocol Miscellaneous Information (Potassium Replacement Protocol 1 Each Misc) 1 each MISCELLANE DAILY PRN; Protocol PRN Reason: Per Protocol Miscellaneous Information (Magnesium Replacement Protocol 1 Each Misc) 1 each MISCELLANE DAILY PRN; Protocol PRN Reason: Per Protocol Naloxone HCl (Naloxone 0.4 Mg/Ml 1 Ml Vial) 0.2 mg IV Q2M PRN PRN Reason: Opioid Reversal Nystatin (Nystatin 100,000 Unit/Gm Powd 15 Gm) 1 applic TOPICAL BID ANNIE; Protocol Last Admin: 09/29/24 09:45 Dose: 1 applic Ondansetron HCl (Ondansetron 4 Mg/2 Ml Vial) 4 mg IVP Q6HR PRN PRN Reason: Nausea And Vomiting Last Admin: 09/01/24 19:41 Dose: 4 mg Pantoprazole Sodium (Pantoprazole 40 Mg/10 Ml Vial) 40 mg IV DAILY ANNIE Last Admin: 09/29/24 08:02 Dose: 40 mg Petrolatum (Zinc Oxide Paste (Z-Guard) 1 Applic) 1 applic TOPICAL BID PRN; Protocol PRN Reason: Wound Healing Social history: Patient started smoking at the age of [age] 1 pack a day stopped in 2016. Nonambulatory. Is cared by his son over. Who is also the DPOA Physical examination: VITAL SIGNS: 98.5, 80, 24, 142 x 62, 97% on the ventilator GENERAL:, Eyes open EYES: Pupils equal. Conjunctiva loan l. HEENT: External appearance of nose and ears normal, oral cavity dry NECK: JVD unable to assess; masses not palpable. Tracheostomy HEART: First and second heart sounds are normal; no edema. LUNGS: Respiratory rate increased, decreased breath sounds, some crackles ABDOMEN: Soft, nontender, liver spleen not palpable, no masses palpable. Double barrel ostomy. PSYCH: Following simple commands MUSCULOSKELETAL: Right BKA. Left foot drop. Left hand contracture. Right hand also with contracture but able to have some movements NEUROLOGICAL: Cranial nerves grossly intact; no facial asymmetry, slight movement in the right arm. L INVESTIGATIONS, reviewed in the clinical context: September 29: Hemoglobin 7 white count 5.2 potassium 3.6 creatinine 1.11 September 28: White count 6.0 hemoglobin 7.2 pH 7.57 bicarb 29 BUN 28 creatinine 1.40 September 27: White count 6.9 hemoglobin 7.8 potassium 3.4 creatinine 0.87 September 26: White count 7.3 hemoglobin 7.5 platelets 204 potassium 3.4 creatinine 0.87 September 25: White count 7.4 hemoglobin 7.6 platelets 194 potassium 3.5 creatinine 1.06 September 24: White count 6.6 hemoglobin 7 platelets 158 potassium 4 BUN 58 creatinine 1.52 phosphorus 6.2 : White count 9.0 hemoglobin 7.7 platelets 155 potassium 4.5 creatinine 1.69 September 22: White count 7.4 hemoglobin 7.3 platelets 114 potassium 5.4 BUN 110 creatinine 1.79 September 18: White count 14.9 hemoglobin 7.6 ABG show pH of 7.2PCO2 of 68P O2 was 77 potassium was 6.1 repeat 5.2 creatinine 0.82 September 17: White count 20 hemoglobin 8.5 platelets 199 potassium 4.2 BUN 25 creatinine 0.4. ABG: pH 7.17 pCO2 79 PO277. September 02: White count 3.6 hemoglobin 9.7 platelets 130 potassium 3.9 BUN 23 creatinine 0.36 ionized calcium 4.3 TSH 2.7 Sputum culture: Pseudomonas aeruginosa: Sensitive to Zosyn, tobramycin, ceftazidime Sputum culture: Pseudomonas aeruginosa August 30: White count 3.5 hemoglobin 10.0 platelets 133 potassium 3.5 creatinine 0.36 August 29, 2024: White count 6.2 hemoglobin 12.3 platelets 216 sodium 128 potassium 3.1 BUN 50 creatinine 0.46 lactic acid 2.1 calcium 10.8 phosphorus 3.0 troponin I 0.016 UA: Negative for nitrite Influenza type A, type B, RSV, SARS-CoV-2: Not detected EKG tracing personally reviewed by me-normal sinus rhythm Chest x-ray film personally reviewed by me-right basilar infiltrate Previous labs: Sputum culture July 20, 2024: Pseudomonas aeruginosa Assessment plan: - basal pneumonia. Previous admission sputum was positive for Pseudomonas aeruginosa-:: Has received different antibiotics. Completed course of antibiotic Being followed by pulmonary, and ID - Candidemia likely source left chest wall PICC line that has been discontinued. And repeat blood cultures on September 22 negative. Line changes are being followed by ID - Fluid overload Had received Lasix drip - Acute kidney injury from ATN from septic shock. Also consider vancomycin toxicity. Oliguric. Volume overload. Dialysis catheter placed by Dr. Cadena-September 21. First dialysis was on September 22.-Has been getting dialysis per nephrology - Metabolic alkalosis - Septic shock: Levophed - Acute on chronic hypoxic and hypercapnic respiratory failure, vent dependent at night at home: Slow to respond On ventilator support. Propofol - Tracheostomy with trach collar -Acute normocytic anemia of chronic disease and hospital-acquired anemia from blood draws and possible hemolysis from infection Received a total of 5 units of blood - Thrombocytopenia likely from sepsis Follow - Right below-knee amputation - Chronic quadriparesis. Including left foot drop. Left arm contracture. Some right hand contracture. Some movement in the right arm - Crohn's disease with double barrel ostomy bag in place since 09/2021 - TPN and lipids Lipids have been held during propofol - Full code - DPOA, son BECKY Discussed with Dr. Holt. Prognosis remains poor. Continue current medication treatment plan. Has finished course with Pseudomonas infection. Line changes per ID. On antifungal Past Medical History Past Medical History: CVA/TIA, Deep Vein Thrombosis (DVT), Pneumonia Additional Past Medical History / Comment(s): Hx CVA in 2012, DVT R arm, Crohns. colostomy Bag placed in 09/2021. History of Any Multi-Drug Resistant Organisms: MRSA, Other MDRO Date of last positivie culture/infection: 07/20/24-Other MDRO; 12/14/23-MRSA MDRO Source:: Other MDRO - sputum, BAL; MRSA- nasal Past Surgical History: Bowel Resection, Cholecystectomy, Orthopedic Surgery Additional Past Surgical History / Comment(s): R BKA, trach with chronic home vent Past Anesthesia/Blood Transfusion Reactions: No Reported Reaction Additional Past Anesthesia/Blood Transfusion Reaction / Comment(s): recalled from previous admission Smoking Status: Never smoker
[2024-09-29 23:19] LABS: Glucose,Whole Blood 133 mg/dL (70-110)
[2024-09-30 03:45] LABS: HCT 22.8 % (39.6-50.0); MCH 26.7 pg (27.0-32.0); MCHC 30.3 g/dL (32.0-37.0); MCV 88.4 fL (80.0-97.0); Platelet Count 220 10*3/uL (140-440); RBC 2.58 10*6/uL (4.40-5.60); RDW 21.2 % (11.5-14.5); WBC 5.56 10*3/uL (4.50-10.00)
[2024-09-30 03:55] LABS: HGB 6.9 g/dL (13.0-17.0)
[2024-09-30 04:01] LABS: African American GFR (CKD) 60 (>60 ml/min/1.73 sqM); Anion Gap 7 mmol/L; Blood Urea Nitrogen 36 mg/dL (9-20); Calcium 8.6 mg/dL (8.4-10.2); Carbon Dioxide 28 mmol/L (22-30); Chloride 97 mmol/L (98-107); Glucose 109 mg/dL (74-99); Magnesium 2.1 mg/dL (1.6-2.3); Non-African American GFR(CKD) 52 (>60 ml/min/1.73 sqM); Potassium 4.1 mmol/L (3.5-5.1); Sodium 132 mmol/L (137-145)
[2024-09-30] MEDS: [UNRECOGNIZED DRUG - REMARK] IV SCH (04:55)
[2024-09-30 05:10] LABS: ABG HCO3 31 mmol/L (21-25); ABG PCO2 45 mmHg (35-45); ABG PH 7.45 (7.35-7.45); ABG PO2 94 mmHg (83-108); ABG TCO2 33 mmol/L (19-24)
[2024-09-30 05:12] LABS: Allen Test Performed? no
[2024-09-30 05:26] LABS: Glucose,Whole Blood 100 mg/dL (70-110)
--- NOTE | 2024-09-30 08:47 | XR ---
EXAMINATION TYPE: XR chest 1V portable DATE OF EXAM: 09/30/2024 5:25 AM COMPARISON: 09/29/2024 CLINICAL INDICATION: Male, 49 years old with history of Mechanical ventilation, , FINDINGS: Tracheostomy cannula. Right subclavian CVC tip in the right atrium. Left PICC tip cavoatrial junction . Right basilar opacity obscured the right heart margin. Ongoing retrocardiac opacity and diffuse int erstitial changes. Surgical clips right base of the neck. IMPRESSION: 1. Ongoing prominent right basilar opacity obscuring the right heart margin. Retrocardiac atelectasis and/or consolidation also persists. 2. Background diffuse interstitial changes persist as well. [facility], , 09/30/2024 8:44 AM
--- NOTE | 2024-09-30 09:31 | P.PN ---
Subjective Patient is seen in follow-up for acute kidney injury, hemodialysis dependent. Started on hemodialysis September 22, 2024. Receiving TPN. Off vasopressors. Vital signs are stable. General: Resting in bed. HEENT: Tracheostomy noted. LUNGS: Scattered rhonchi. HEART: Rate and Rhythm are regular. ABDOMEN: Ostomy noted. EXTREMITITES: 2+ edema left lower extremity. Right BKA. Objective - Vital Signs Vital signs: Vital Signs Temp 98.2 F 09/30/24 07:33 Pulse 66 09/30/24 08:05 Resp 24 09/30/24 07:33 BP 149/75 09/30/24 07:33 Pulse Ox 95 09/30/24 07:33 FiO2 30 09/30/24 07:52 Intake & Output 09/29/24 09/30/24 09/30/24 18:59 06:59 18:59 Intake Total 2155.855 880.464 204 Output Total 35 640 15 Balance 2120.855 240.464 189 Weight 97.7 kg Intake: IV 966 816 204 0.9 KVO 70 120 30 Anidulafungin 100 mg In 100 Sodium Chloride 0.9% 100 ml @ 84 mls/hr IVPB DAILY ANNIE Rx#:[id number] Potassium Chloride 20 meq 100 In Water For Injection 1 100ml.bag @ 50 mls/hr IVPB Q2H ANNIE Rx#: [id number] Pressure Bag 36 36 9 TPN 660 660 165 Intake, IV Titration 1189.855 64.464 Amount Mvi, Adult No.4 with Vit 1055.083 K 10 ml Trace (Conc-1Ml/ Dose) 1 ml Sodium Acetate 80 meq Sodium Chloride 4Meq/ml Vial 44 meq Calcium Gluconate 0.5 gm Potassium Chloride 24 meq Magnesium Sulfate gm 0. 75 gm In Amino Acids 5 %/ Dextrose 20 % 1,000 ml @ 55 mls/hr IV .[id number] ANNIE Rx#:[id number] Norepinephrine 8 mg In 34.772 Sodium Chloride 0.9% 250 ml @ 0.03 MCG/KG/MIN 6. 513 mls/hr IV .Q24H ANNIE Rx#:[id number] propofoL 1,000 mg In 100.000 64.464 Empty Bag 1 bag @ 50 MCG/ KG/MIN 32.34 mls/hr IV . Q3H6M ANNIE Rx#:[id number] Blood Product 0 Rc As-1 Unit 0 [id number] Output: Urine 35 40 15 Stool 600 Other: Voiding Method Indwelling Catheter Indwelling Catheter ABP, PAP, CO, CI - Last Documented Arterial Blood Pressure - Labs CBC & Chem 7: 09/30/24 03:15 09/30/24 03:15 Labs: Abnormal Lab Results - Last 24 Hours (Table) 09/29/24 09/29/24 09/30/24 Range/Units 18:02 23:18 03:15 RBC (4.40-5.60) 10*6/uL Hgb (13.0-17.0) g/dL Hct (39.6-50.0) % MCH (27.0-32.0) pg MCHC (32.0-37.0) g/dL ABG HCO3 (21-25) mmol/L ABG Total CO2 (19-24) mmol/L ABG O2 Saturation (94-97) % Hemoglobin (13.0-17.5) gm/dL Sodium 132 L (137-145) mmol/L Chloride 97 L (98-107) mmol/L BUN 36 H (9-20) mg/dL Creatinine 1.55 H (0.66-1.25) mg/dL Glucose 109 H (74-99) mg/dL POC Glucose (mg/dL) 113 H 133 H (70-110) mg/dL Crossmatch 09/30/24 09/30/24 09/30/24 Range/Units 03:15 04:08 05:04 RBC 2.58 L (4.40-5.60) 10*6/uL Hgb 6.9 L* (13.0-17.0) g/dL Hct 22.8 L (39.6-50.0) % MCH 26.7 L (27.0-32.0) pg MCHC 30.3 L (32.0-37.0) g/dL ABG HCO3 31 H (21-25) mmol/L ABG Total CO2 33 H (19-24) mmol/L ABG O2 Saturation 98.4 H (94-97) % Hemoglobin 7.2 L (13.0-17.5) gm/dL Sodium (137-145) mmol/L Chloride (98-107) mmol/L BUN (9-20) mg/dL Creatinine (0.66-1.25) mg/dL Glucose (74-99) mg/dL POC Glucose (mg/dL) (70-110) mg/dL Crossmatch See Detail Assessment and Plan Plan: Assessment: 1. Acute kidney injury secondary to ATN secondary to septic shock and vancomycin toxicity. Oliguric. Started on hemodialysis October 02, 2024 via femoral catheter. 2. Septic shock secondary to pneumonia and fungemia. Currently off Levophed. 3. Acute blood loss anemia status post blood transfusion this admission. Scheduled to receive a unit of blood today. 4. Volume overload. Better with UF. 5. Chronic hypoxic and hypercapnic respiratory failure, home ventilator dependent. 6. History of cardiac arrest. 8. Status post right BKA. Plan: Hemodialysis today. TPN per surgery. Lasix 80 mg IV once today. Will need tunneled dialysis catheter and removal of temporary dialysis catheter.
[2024-09-30 11:31] LABS: Glucose,Whole Blood 96 mg/dL (70-110)
[2024-09-30 11:45] LABS: HCT 27.2 % (39.6-50.0); HGB 8.2 g/dL (13.0-17.0); MCH 26.7 pg (27.0-32.0); MCHC 30.1 g/dL (32.0-37.0); MCV 88.6 fL (80.0-97.0); Platelet Count 220 10*3/uL (140-440); RBC 3.07 10*6/uL (4.40-5.60); RDW 21.0 % (11.5-14.5); WBC 6.64 10*3/uL (4.50-10.00)
--- NOTE | 2024-09-30 13:34 | P.PN ---
Subjective Progress Note Date: 09/30/24 This is a 49-year-old white male familiar to my service, history of paraplegia, home vent dependent, history of tracheostomy, patient had multiple admissions to the ICU for recurrent episodes of pneumonia and respiratory failure requiring ventilatory support. On his last admission patient was eventually discharged home on a home ventilator, and this was back on 08/04/2024. Patient was discharged home with a PICC line, patient was in the ER yesterday on 08/28 for abnormal labs mostly low potassium and low sodium discharged home however he came back today complaining of shortness of breath, has been ventilator dependent all along. Chest x-ray showed basically bibasilar opacities/atelectasis, doubt pneumonia, the findings in the left lower lobe are chronic. Patient did have previous history of pneumonia involving the left lower lobe and he had multiple bronchoscopies in the past. Bronchial cultures and sputum cultures have been positive in the past for mostly Pseudomonas aeruginosa. Patient was seen in the ER today, and he is already on cefepime for empiric coverage for potential left lower lobe pneumonia, patient had abnormal electrolytes with relatively low sodium low potassium, no leukocytosis, normal renal profile, blood pressure was soft, and he was given fluid boluses. Lactic acid was 2.1, D-dimer is normal, patient was admitted, and this consult was initiated. 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 Patient was seen today on 08/30/2024, patient continues to have intermittent episodes of fever with Tmax of 102, patient required norepinephrine and he remains on norepinephrine at 0.04 mcg/kg/min remains on LR at 130 cc/h remains on his home ventilator at tidal volume of 450 rate of 20 FiO2 45% and PEEP of 5. Seems comfortable, not in distress, his WBC is 3.5 hemoglobin 10.0 electrolytes are normal renal profile is normal potassium is borderline low. Patient remains on cefepime, vancomycin was added because of his previous history of MRSA, and is on cefepime for previous history of pseudomonal infection and now that the patient may be septic it is more of a reason to broaden the spectrum of antibiotics coverage with cefepime and vancomycin. Sputum cultures and blood cultures are pending. Patient does have history of pseudomonal and history of MRSA infections, and I discontinued his Zithromax today replace Zithromax with vancomycin. Viral screen is negative Legionella antigen is negative. Chest x- ray is relatively unchanged continues to show bibasilar opacities atelectasi s/pneumonia. Progress note dated August 31, 2024. The patient is seen today in room 252. The patient was admitted a couple days ago, to the intensive care unit. The patient is currently on mechanical ventilator, actually his home ventilator. He is on volume assist-control, rate 20, tidal volume 450, FiO2 45% PEEP of 5. The patient is getting lactated Ringer's at 130 cc an hour, TPN at 91 cc an hour, norepinephrine at 8 mcg/min. Doppler of the left upper extremity was negative. He continues on Zerbaxa, and vancomycin. We will check a procalcitonin level. Cultures thus far are negative. He does have a previous history of methicillin-resistant Staph aureus infection, and pseudomonal infections. White count was 2.21, hemoglobin 9.3, hematocrit 32, platelet count 1 61,000. D-dimer was 5.78. Sodium 132, potassium 4.3, chlorides 106, CO2 21, BUN 18, creatinine 0.28. Glucose was 141. Calcium 7.8. C. difficile study was negative. Urine Legionella antigen was negative. Microbiologic studies are currently negative. Chest x-ray shows bibasilar airspace opacities, possibly consistent with pneumonia. 09/01/24 - The patient is seen today in room 252. Admitted to the hospital and the intensive care unit on 08/29/2024. The patient is currently on mechanical ventilator, his one from home. He is on volume assist control, rate of 20, tidal volume of 450, FiO2 45% and PEEP of 5. He currently has LR running at 50 cc/h, TPN at 91 cc/h, Zerbaxa and tobramycin. Chest Xray done this morning showed stable airspace opacities. Cultures are positive for pseudomonas aeruginosa, awaiting sensitivities. WBCs 2.69, Hgb 8.9, Hct 31.5, PLT 153, Na 135, K 3.4, Cl 109, HCO3 19, BUN 22, Cr 0.34, Phos 2.4. 09/02/24 - He is seen today in room 252. Admitted to the hospital and ICU on 08/29/24. He continues on mechanical ventilator, his one from home. He remaines on volume assist control, rate of 20, tidal volume of 450, FiO2 45% and PEEP of 5. He continues to have LR running at 50 cc/h, TPN at 91 cc/h, norepinephrine at 0.13 mcg/kg/min, Zebraxa and Tobramycin. Chest XRay this morning showed stable airspace opacities. Continue to await sensitivity of pseudomonas sputum culture. Lab work shows WBCs 3.64, Hgb 9.7, Hct 33.5, PLT 130, Na 133, K 3.9, bicarb 21, BUN 23, Cr 0.36, Ca 7.8, Mg 2.4, Albumin 2.3. 09/03/24 - He is seen in room 252. Admitted to the hospital and ICU on 08/29/24. He continues on mechanical ventilator, his one from home. He remaines on volume assist control, rate of 20, tidal volume of 450, FiO2 45% and PEEP of 5. He continues to have LR running at 50 cc/h, TPN at 91 cc/h, norepinephrine at 0.24 mcg/kg/min, Avycaz and Tobramycin. Zebraxa was discontinued as there was no reported sensitivity to it. Lab work shows WBCs 9.40, Hgb 8.8, Hct 30.6, PLT 100, Na 130, K 3.6, bicarb 23, BUN 25, Cr 0.51, Ca 7.8, Ionized Ca 4.6, Phos 3.3, Mg 2.1, TSH 2.710 and random cortisol 13.1. 09/04/24 - He is seen in room 252. Admitted to the hospital and ICU on 08/29/24. He continues on mechanical ventilator, his one from home. He remaines on volume assist control, rate of 20, tidal volume of 450, FiO2 45% and PEEP of 5. He continues to have LR running at 50 cc/h, TPN at 91 cc/h, norepinephrine at 0.24 mcg/kg/min, Avycaz and Tobramycin. Lab work shows sodium 133, potassium 3.5, bicarb 24, BUN 27, creatinine 0.47, calcium 7.9, ionized calcium 4.6, magnesium 1.9, phosphorus 3.0, total bilirubin 1.7, AST 57, ALT 45, alkaline phosphatase 99. Progress note dated September 05, 2024. 49-year-old male well-known to our service. He is seen today in room 252. He continues on volume assist-control, rate 20, tidal 450, FiO2 45%, PEEP of 5. The patient has refused blood gases. Currently, he is getting TPN at 65 cc an hour, norepinephrine at 1 mcg/min, LR at 50 cc/h. Clinically, the patient is doing well. His chest x-ray remains about the same. Yesterday he was on a hig her dose of norepinephrine, and also was on vasopressin. Both have been weaned off. Current labs include a sodium 136, potassium 4.1, chlorides 101, CO2 28, BUN 30, creatinine 0.37. Glucose 153. Albumin is 2.2. Previous sputum, from August 29 with positive for Pseudomonas aeruginosa. Chest x-ray is largely unchanged. Progress note dated September 06, 2024. 49-year-old male again seen today in the intensive care unit, room 252. He remains on mechanical ventilator, actually his home ventilator, with settings of volume assist-control, rate 20, tidal volume 450, FiO2 45%, PEEP of 5. No blood gases today. The patient has been refusing. He is getting lactated Ringer's at 50 cc an hour, TPN at 65 cc an hour. He continues on the same antibiotics. White count 5.21, hemoglobin 7.9, hematocrit 27.5, and platelet count 64,000. Sodium 141, potassium 3.5, chlorides 102, CO2 32, BUN 25, and creatinine 0.35. Glucose is 152. Calcium is 8. Albumin is 2.1. Chest x-ray is largely unchanged. 09/07/2024, the patient remains on a mechanical ventilator. The patient is having excessive respiratory secretions. Attempts to suction this patient has failed as the secretions are quite thick and the patient has had episodes of bradycardia while suctioning. Remains on TPN at 65 cc an hour and lactated Ringer at 50 cc an hour. Remains on assist-control mode mechanical ventilation at rate of 20, tidal volume of 450, FiO2 of 100% with a PEEP of 8. Patient has refused to have an arterial line. The patient has refused blood gases. Urine output is adequate. No hypotension. He has a double-lumen catheter in his left chest and the left forearm IV line.He is afebrile. He continues to have multidrug-resistant Pseudomonas in his sputum. The patient remains on ceftazidime/avibactam per IDs recommendations. He is also on IV tobramycin. Remains on stress dose hydrocortisone. Blood work shows a white cell count of 6.9, hemoglobin 7.9 and a platelet count of 90. BUN is 24 with a creatinine of 0.33. Sodium is 143 and a potassium level of 3.7. Bicarb level is at 33. Output from the ileostomy bag is high and the net fluid balance is +1.2 L over the past 24 hours. Airway pressures on the mechanical ventilator are elevated with an elevated peak airway pressure around 36 consistent with excessive respiratory secretions and mucous plugs. Chest x-ray shows atelectatic changes infiltrates in lung bases along with some scattered hazy bilateral pulmonary infiltrates. 09/08/2024, the patient is being seen for a follow-up. On today's evaluation, the patient is awake on no sedation. His chest x-ray showing worsening bilateral pulmonary filtrates. Running low-grade fever. A bronchoscopy in the BAL was done yesterday and the results are still pending for now. He remains on assist-control mode at rate of 20, tidal volume of 450, FiO2 of 60% with a PEEP of 8. He remains on lactated Ringer at rate of 50 cc an hour and TPN at rate of 65 cc an hour. He remains on IV Lasix. He remains on ceftazidime/avibactam regarding his multidrug-resistant Pseudomonas. He is also on tobramycin. The white cell count is 6 with a hemoglobin 7.7 and platelet count of 77. Sodium is at 143, BUN 24 with a creatinine of 0.2. Serum bicarb is at 34. LFTs are within normal limits. The patient had no blood cares for today. He has refused blood gases. On a separate note, cardiology was consulted regarding the episodes of bradycardia that the patient is encountering. Upon sectioning, the patient is having episodes of cardiac block, likely third-degree AV block that last around 5 to 8 seconds. Patient was taken off the scopolamine patch. On 09/09/2024, the patient remains on a mechanical ventilator. He is complaining of shortness of breath even while being on the mechanical ventilator. Repeat chest x-ray was done today and the patient has developed diffuse infiltrates bilaterally greater in the lung bases and there is interval worsening in the chest x-ray findings. The bronchoalveolar lavage that was obtained earlier on 09/07/2024 showed Pseudomonas aeruginosa and corynebacterium. The patient remains on ceftazidime avibactam and tobramycin. Vancomycin was also added. He is running a low-grade fever with a Tmax of 100.7. He remains on assist-control mode mechanical ventilation at rate of 20, tidal volume of 450, FiO2 of 60% with a PEEP of 8. The patient did not have a blood gas today. Fluid balance is +2.6 L over the past 24 hours. He is currently on IV Lasix 20 mg IV push every 8 hours. The patient is also on TPN at rate of 65 cc an hour and lactated Ringer at rate of 50 cc an hour. The white cell count is 4.6 with a heme of 7.3 and a platelet count of 72. Sodium is at 144, bicarb is at 34, BUN 22 with a creatinine of 0.38. Chloride is 103. Calcium levels at 7.4, phosphorus 3.6, LFTs are normal. Albumin levels at 2.1. Arousable, able to communicate. No significant cardiac arrhythmias over the past 24 hours. 09/10/2024, patient is awake and alert and communicating. Continues to have on and off episodes of shortness of breath while being on a mechanical ventilator. Oxygenation is borderline and the patient's pulse ox remains low. Unable to obtain any blood gases as the patient has declined arterial blood draws. He is on assist-control mode rate of 20, tidal volume of 450, FiO2 of 70% with a PEEP of 10. Remains on TPN at rate of 35 cc an hour and lactated Ringer at rate of 50 cc an hour. Fluid balance is +2.6 L over the past 24 hours.the white cell count is 6.3, hemoglobin is at 7.4, platelet count is a 73 and the patient remains on therapeutic dose of Lovenox. The patient's sodium levels at 143, K is at 3.3, bicarb is at 40 with a BUN of 21 and a creatinine of 0.8. Blood sugar is 140. The most recent lavage from the right lower lobe was positive for Pseudomonas aeruginosa and corynebacterium. The patient remains on a combination of ceftazidime antibacterial combination, tobramycin and IV vancomycin. Output from ileostomy is in order of 800 cc over the past 8 hours. Remains on IV Lasix. Chest x-ray is unchanged and it shows bilateral pulmonary infiltrates, diffuse increased interstitial lung markings, lines and catheters are in place, tracheostomy tube is in place. 09/11/2024, the patient is stable, awake and alert and communicating. Remains on TPN for nutritional support with rate of 75 cc an hour. Remains on the same mechanical ventilator settings and the patient remains on assist-control mode at rate of 20, tidal volume of 450, FiO2 of 60% with a PEEP of 8. Fluid balance is -50 cc over the past 24 hours and the patient remains on IV Lasix 20 mg every 8 hours. The biotic coverage remains unchanged and the patient remains on a combination of ceftazidime IV Bactrim, tobramycin and vancomycin. The white cell count is at 4.7 with a hemoglobin of 7.1 and a platelet count of 89. BUN is 20 with a creatinine of 0.25. Sodium levels at 142. Serum iron levels at 16. Vancomycin trough is at 17. Follow-up chest x-ray from today shows stable bilateral pulmonary filtrates and pleural effusions bilaterally. Tracheostomy tube remains in good location. The patient continues to have high output through the ileostomy. Currently afebrile. No cardiac arrhythmias have been noted. 09/12/2024, patient is resting comfortably in bed. Remains on a mechanical ventilator. Unable to wean. Chest x-ray still showing bilateral pulmonary filtrates consistent with pneumonia. The patient is on assist-control mode at rate of 20, tidal volume of 450, FiO2 of 50% and a PEEP of 8. Remains negative fluid balance as the patient is being diuresed with IV Lasix. Fluid balance is -1 L over the past 24 hours. Remains on Lasix 20 mg IV push every 8 hours. Hemoglobin from this morning was 5.8. Repeat hemoglobin came back at 7.4. Platelet counts are stable. No evidence of any GI bleeding. Remains on Lovenox therapeutic dose. Remains on TPN at rate of 75 cc an hour. White cell count is at 5, platelet count is at 93, BUN is 25 with a creatinine 0.4. Sodium levels at 144 and a potassium level is at 3.6. Ileostomy still functioning. Remains on broad-spectrum antibiotics. Remains on ceftolozane/tazobactam. Remains on vancomycin. Remains on stress dose hydrocortisone. 09/13/2024, the patient is being seen for a follow-up. No change in his condition over the past 24 hours. Remains on a mechanical ventilator. Awake and alert and communicating. Started on fentanyl patch and his pain is under better control and the patient is using fentanyl patch 75 mcg every 72 hours. Remains assist-control mechanical ventilation at rate of 20, tidal volume of 450, FiO2 50% with a PEEP of 8. Chest x-ray from today shows stable bilateral pulmonary infiltrates, no significant change compared to yesterday and the tracheostomy tube remains in place. The patient continues to have multifocal airspace disease. Fluid balance is +30 cc over the past 24 hours. TPN is running at a rate of 75 cc an hour. Afebrile. Hemoglobin in this morning was at 5.8. Recheck was 6.1. The platelet count is 817. Sodium is at 148, potassium 3.2, BUN 26 with a creatinine of 0.44. Serum bicarb is at 38. The patient has a triglyceride level of 152. Remains on ceftolozane tazobactam and vancomycin. On 09/28/2024, the patient is being seen for a follow-up. The patient remains ventilator dependent. This morning, the patient remains on a assist-control mode of mechanical ventilation at rate of 36, tidal volume of 400, FiO2 30% with a PEEP of 5. The blood gases from today showed pH of 7.57 with a PCO2 of 30 and PO2 of 70. Chest x-ray shows ongoing diffuse interstitial infiltrates and wor sening airspace disease in the right lung base and the patient is having limited amount of respiratory secretions. Currently on propofol running at 20 mcg/kg/min. 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 Blood culture was positive on 09/15/2024 and 09/18/2024 and the patient is currently on Eraxis. Repeat blood culture on 09/22/2024 was negative. ID is on the case. Lines were all removed and the patient has a right subclavian triple-lumen catheter: Inserted on 09/17/2024. The patient is currently on no pressors. The patient also has developed an acute kidney injury. The patient was started on hemodialysis on 09/22/2024 and the patient has a left femoral triple-lumen catheter in place. Last hemodialysis session was on 09/26/2024 and another hemodialysis session is to follow this morning. He remains on TPN running at 33 cc an hour. Arousable. Sedated. Blood work from today shows a BUN of 28 with a creatinine of 1.4. Sodium is at 129 and potassium is at 4.4. WBC count is 6 with a heme of 7.1 platelet count of 206. Afebrile for now. Ileostomy continues to show increased output. On 09/29/2024, the patient is being seen for a follow-up. On today's evaluation, the patient is arousable and awake and following commands. He is on propofol running at 20 mcg/kg/min. Remains on a mechanical ventilator and the patient is calm and comfortable with limited respiratory secretions. He is on assist- control at rate of 24, tidal volume of 400, FiO2 of 30% with a PEEP of 8. pH is at 7.44 with a [id number] and PO2 of 80. Chest x-ray remains unchanged. Tracheostomy tube is in location. Remains on TPN for nutritional support arriving at 55 cc an hour. Remains on low-dose norepinephrine running at 0.01 mcg/kg/min. The patient underwent hemodialysis on 09/28/2024 with a total of 2 L of ultrafiltration. No urine output for now. Lab work is stable. The white seconds at 5.2 with a hemoglobin of 7 and a platelet count of 206. Electrolytes all within normal limits. Potassium levels are 3.6. Sodium is 134. BUN is 20 with a creatinine of 1.1. He remains on IV Eraxis. Most recent blood cultures been negative. Afebrile. 09/30/2024, the patient is being seen for a follow-up. This morning, the patient is calm and comfortable and the patient remains on propofol running at 10 mcg/kg/min. Patient is on no pressors. The patient has a left femoral hemodialysis catheter in place and his last hemodialysis session was on 09/26/2024 and the patient will undergo another session today. Urine output is in the order of 0 to 5 cc an hour. The patient will be also receiving a dose of Lasix 80 mg IV push per nephrology following hemodialysis. The patient is succe ssful insertion of the PICC line in the left upper extremity. Morning hemoglobin was 6.9 and the patient was given a unit of packed RBC. No evidence of any acute bleeding. Remains on a mechanical ventilator on assist-control mode rate of 24, tidal volume of 400, FiO2 30% with a PEEP of 6. Blood gas showed a pH of 7.45 with a [id number] and PO2 of 94. The chest x-ray shows no significant interval change. Afebrile. Hemodynamically stable. Ileostomy is functional. TPN is running at a rate of 55 cc an hour. Rest of the labs noted in the patient's hemoglobin posttransfusion came back at 8.2. The white cell count 6.6. Platelet count is at 220. BUN 36 with a creatinine of 1.55 and the sodium is 132 and a potassium level is at 4.1. Objective - Vital Signs Vital signs: Vital Signs Temp 98.2 F 09/30/24 07:33 Pulse 66 09/30/24 08:05 Resp 24 09/30/24 07:33 BP 149/75 09/30/24 07:33 Pulse Ox 95 09/30/24 07:33 FiO2 30 09/30/24 07:52 Intake & Output 09/29/24 09/30/24 09/30/24 18:59 06:59 18:59 Intake Total 2155.855 880.464 204 Output Total 35 640 15 Balance 2120.855 240.464 189 Weight 97.7 kg Intake: IV 966 816 204 0.9 KVO 70 120 30 Anidulafungin 100 mg In 100 Sodium Chloride 0.9% 100 ml @ 84 mls/hr IVPB DAILY [facility] Rx#:[id number] Potassium Chloride 20 meq 100 In Water For Injection 1 100ml.bag @ 50 mls/hr IVPB Q2H [facility] Rx#: [id number] Pressure Bag 36 36 9 TPN 660 660 165 Intake, IV Titration 1189.855 64.464 Amount Mvi, Adult No.4 with Vit 1055.083 K 10 ml Trace (Conc-1Ml/ Dose) 1 ml Sodium Acetate 80 meq Sodium Chloride 4Meq/ml Vial 44 meq Calcium Gluconate 0.5 gm Potassium Chloride 24 meq Magnesium Sulfate gm 0. 75 gm In Amino Acids 5 %/ Dextrose 20 % 1,000 ml @ 55 mls/hr IV .[id number] [facility] Rx#:[id number] Norepinephrine 8 mg In 34.772 Sodium Chloride 0.9% 250 ml @ 0.03 MCG/KG/MIN 6. 513 mls/hr IV .Q24H [facility] Rx#:[id number] propofoL 1,000 mg In 100.000 64.464 Empty Bag 1 bag @ 50 MCG/ KG/MIN 32.34 mls/hr IV . Q3H6M [facility] Rx#:[id number] Blood Product 0 Rc As-1 Unit 0 [id number] Output: Urine 35 40 15 Stool 600 Other: Voiding Method Indwelling Catheter Indwelling Catheter ABP, PAP, CO, CI - Last Documented Arterial Blood Pressure 34/27 - Exam No acute distress, currently connected to the ventilator. He has a tracheostomy tube in place. The patient has a #6 [address]iley tracheostomy tube in place. Lethargic, follows simple commands. Profoundly weak in all 4 extremities. The patient is currently on propofol for sedation. Able to communicate. HEENT examination is grossly unremarkable. Mucous membranes are moist. No oral lesions. Tracheostomy tube is in place. The patient has a right subclavian triple-lumen catheter in place Neck supple. Full range of motion. No adenopathy thyromegaly or neck vein distention. Cardiovascular examination reveals regular rhythm rate. S1-S2 normal. No S3 or S4. No discernible murmur noted. Lungs reveal clear breath sounds. Breath sounds are diminished bilaterally and scattered rhonchi heard throughout the lung craft bilaterally. Tracheostomy tube in place. Abdomen reveals an enterocutaneous fistula, normal bowel sounds. No tenderness. No masses. The patient has a left femoral dialysis catheter in place. Extremities are intact. No cyanosis clubbing and there is edema in his left lower extremity and upper extremities bilaterally. The patient has a below-knee amputation his right lower extremity. Skin is without rash or lesion. Neurologic examination is brief but nonfocal. He does have significant muscle atrophy, and contractures. He has a right below the knee amputation. Generalized profound weakness. Weak cough. Weak motor functions. - Labs CBC & Chem 7: 09/30/24 11:28 09/30/24 03:15 Labs: Abnormal Lab Results - Last 24 Hours (Table) 09/29/24 09/29/24 09/30/24 Range/Units 18:02 23:18 03:15 RBC (4.40-5.60) 10*6/uL Hgb (13.0-17.0) g/dL Hct (39.6-50.0) % MCH (27.0-32.0) pg MCHC (32.0-37.0) g/dL ABG HCO3 (21-25) mmol/L ABG Total CO2 (19-24) mmol/L ABG O2 Saturation (94-97) % Hemoglobin (13.0-17.5) gm/dL Sodium 132 L (137-145) mmol/L Chloride 97 L (98-107) mmol/L BUN 36 H (9-20) mg/dL Creatinine 1.55 H (0.66-1.25) mg/dL Glucose 109 H (74-99) mg/dL POC Glucose (mg/dL) 113 H 133 H (70-110) mg/dL Crossmatch 09/30/24 09/30/24 09/30/24 Range/Units 03:15 04:08 05:04 RBC 2.58 L (4.40-5.60) 10*6/uL Hgb 6.9 L* (13.0-17.0) g/dL Hct 22.8 L (39.6-50.0) % MCH 26.7 L (27.0-32.0) pg MCHC 30.3 L (32.0-37.0) g/dL ABG HCO3 31 H (21-25) mmol/L ABG Total CO2 33 H (19-24) mmol/L ABG O2 Saturation 98.4 H (94-97) % Hemoglobin 7.2 L (13.0-17.5) gm/dL Sodium (137-145) mmol/L Chloride (98-107) mmol/L BUN (9-20) mg/dL Creatinine (0.66-1.25) mg/dL Glucose (74-99) mg/dL POC Glucose (mg/dL) (70-110) mg/dL Crossmatch See Detail Assessment and Plan Plan: Acute on chronic hypoxic respiratory failure. The patient remains on a mechanical ventilator. The patient has bilateral pleural effusion and bilateral pneumonia with multidrug-resistant Pseudomonas aeruginosa. The patient was initially treated with ceftazidime/tazobactam and tobramycin combination. Repeat bronchoscopy on 09/07/2024 shows a positive Pseudomonas aeruginosa and corynebacterium in the BAL collected from the right lower lobe. The patient was subsequently treated with ceftolozane /tazobactam and vancomycin. There is also development of bilateral pleural effusion and the patient also has an area of consolidation in the right lung base. The respiratory status is stable. Chest x-ray findings remain stable. Sepsis with systemic fungemia and blood culture was positive for Bella parapsilosis, currently on IV Eraxis, initial blood culture was positive on 09/15/2024 and repeat cultures from 09/18/2024 was positive for Bella. Most recent blood culture from 09/22/2024 was negative. The patient remains hemodynamically stable and the patient is afebrile. No significant leukocytosis Septic shock, recovered, currently off pressors Acute kidney injury, currently on hemodialysis, last hemodialysis session was on 09/28/2024 with a total of 2 L of ultrafiltration, another session of hemodia lysis to be done today. History of severe tracheal stenosis, S/P tracheostomy. 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 Chronic anemia, with an acute drop in hemoglobin down to 6.8, posttransfusion with a unit of packed RBC. History of DVT. History of CVA. History of right below-knee amputation. Previous history of asystole/cardiac arrest, 2021. History of Crohn's disease, S/P enterocutaneous fistula, diverting ileostomy. The patient remains on TPN for nutritional support. Plan: Continue ventilator support, will drop the PEEP down to 5, Patient is currently on no pressors Continue sedation with propofol and weaning down to 10 mcg/kg/min Continue IV Eraxis, to be completing a total of 2-week course following a negative blood culture. Another session of hemodialysis to be done today on 09/30/2024.hemodialysis to be completed today per nephrology Monitor hemoglobin and the patient was already transfused with a unit of packed RBC. Continues on TPN at 55 cc an hour, IV fluids or KVO continue stress dose hydrocortisone Heparin subcu for DVT prophylaxis fentanyl patch to 100 mcg on a daily basis for better pain control IV Protonix Monitor ileostomy output Prognosis remain extremely poor. Prognosis remains extremely poor due to above-mentioned comorbidities. Will continue to follow and make further recommendation based on his progress. This evaluation was done at 35 minutes. Working on long-term placement in a facility with capability to undergo mechanical ventilation and hemodialysis. Time with Patient: Greater than 30
--- NOTE | 2024-09-30 15:17 | P.PN ---
Progress Note - Text Progress Note Date: 09/30/24 Chief Complaint: Short of breath 49-year-old patient, follows with Dr. Murcia History of paraplegia, home vent at night, tracheostomy multiple admissions to the ICU for recurrent pneumonia. Patient's previous bronchial cultures been positive for Pseudomonas. He was discharged recently on IV cefepime. Also has a history of Crohn's disease with previous colectomy diverting ileostomy. History of DVT for which patient is on subcu Lovenox. Also had drug-resistant MRSA Pseudomonas. Patient currently does not have areas significant trach secretions. He has continues TPN. Has a right BKA. He does have slight movement in the right hand. Able to follow commands by nodding his head. Answering questions. He is scared by his elder son open. I was also the DPOA. August 30: Overnight patient started having more secretions through the tracheostomy. Vancomycin was added. Also blood pressure running low patient was put on Levophed drip. Otherwise sinus rhythm. Patient remains on the ventilator. Will also send off stool for C. difficile. Also patient IV cefepime. Getting TPN. August 31: ICU. Patient had positive fluid balance. Was given IV Lasix earlier. Remains on Levophed. Spiking fevers. Getting TPN. Stool negative for C. difficile. Patient is growing MDRO Pseudomonas aeruginosa. ID is ordered IV Zerbaxa. Which is currently not available. Patient's friend is visiting him in the ICU. Light trach secretion September 01: ICU. On the ventilator. FiO2 45%. PEEP of 5. Continues to have light trach secretions. Sputum cultures again growing Pseudomonas. Zerbaxa was obtained and resumed. Blood pressure running low. On Levophed. Patient's younger son at the bedside. Colostomy working fine. Has been spiking fevers. Cooling blanket. Ice packs. September 02: ICU. Ventilator FiO2 45%. PEEP of 5. Continues to have some trach secretions. IV Zerbaxa IV tobramycin. TPN lipids to continue. Also Levophed. Patient started cooling blankets since yesterday for temperatures. Along with the nurse speech therapy records were reviewed from last few admissions. Patient with multiple MBS and bedside swallow eval. No trouble with swallowing. Patient put on a chopped diet. Thin liquids. Patient did spike a fever of 101.7 earlier today. Low ionized calcium. IV gluconate given. September 03: ICU. On ventilator FiO2 45%. PEEP of 5. Mild trach secretions. Getting IV TPN lipids. IV tobramycin. Zerbaxa was substituted to Avycaz. By ID. No fever per se since yesterday. For blood pressure patient is also on Levophed and vasopressin. September 04: ICU. On ventilator FiO2 45%. PEEP of 5. Clear trach secretions. Getting IV TPN lipids. IV tobramycin. And IV Avycaz. Remains afebrile.. On Levophed and vasopressin. Awake. 09/06/2024 Patient is seen and evaluated in ICU; remains on mechanical ventilator, actually his home ventilator, with settings of volume assist-control, rate 20, tidal volume 450, FiO2 45%, PEEP of 5. - patient has been refusing blood; no ABGs to. He is getting lactated Ringer's at 50 cc an hour, TPN at 65 cc an hour. - patient remains on the same antibiotics. - Labs reviewed which reveal white count 5.21, hemoglobin 7.9, hematocrit 27.5, and platelet count 64,000. Sodium 141, potassium 3.5, chlorides 102, CO2 32, BUN 25, and creatinine 0.35. Glucose is 152. Calcium is 8. Albumin is 2.1. -Chest x-ray is largely unchanged. Critical care managing mechanical ventilation; recommending to add scopolamine patch for increased secretion -Patient remains on Avycaz and tobramycin - Continue with current TPN 09/07 Patient remains in the ICU lethargic. He is s/p tracheostomy Overnight he was more hypoxic they have to increase PEEP to 8. Also has a lot of secretions when needed for secretions suctioning to try to become apneic per Staff. Patient currently receiving Avycaz and tobramycin. on TPN also 09/08 Patient remains in the ICU awake and alert status post tracheostomy. He has contractures of both upper and lower extremities He is complaining from pain in his lungs. He is status post flexible bronchoscopy and bronchoalveolar lavage yesterday. He has previous sputum culture positive for Pseudomonas currently covered with ceftazidime and tobramycin. He is also on Lovenox 90 mg 09/09 Patient still in the ICU on mechanical ventilation via tracheostomy. PEEP is 8.0 as is yesterday Also he spiked little fever to 100.7. IV vancomycin is added to tobramycin and ceftazidime He is getting also bronchoscopy follow-up culture results 09/10 Patient feels clinically the same, he still getting breathing via mechanical ventilation through his tracheostomy with PEEP of 8. Patient feels he is required suctioning through his tracheostomy tube. He denies chest pain or pain anywhere else he can communicate by head signs and gestures. Hemodynamically stable and afebrile hemoglobin 7.4 platelet count 73 Glucose is controlled potassium 3.3 He remains on broad-spectrum antibiotic Rocephin at this time tobramycin and IV vancomycin added yesterday because he had low-grade fever. He is getting TPN. IV fluid Ringer lactate was stopped and patient was started on IV Lasix 20 mg 3 times a day continue with therapeutic dose of Lovenox as well 09/11 Patient remains in the ICU Remains on mechanical ventilation via tracheostomy He status post bronchoalveolar lavage 2 days ago, culture is growing Pseudomonas aeruginosa and corynebacterium Patient remains on broad-spectrum antibiotics with IV vancomycin, tobramycin, ceftazidime On IV Lasix also is on therapeutic dose of Lovenox 90 mg twice daily No IV fluids 09/12 Patient remains in the ICU Clinically close to what he was over the last 2 days still getting oxygen via his tracheostomy He remains on broad-spectrum antibiotic with Ceftin this time and IV vancomycin. Also he is on IV Lasix 20 mg and therapeutic dose of Lovenox. 09/13 Patient remains in the ICU on mechanical ventilation via tracheostomy Patient looks better today, he breathing better Less secretion Fentanyl patch increased 09/14. Patient seen and examined. Patient continues to be on mechanical ventilation via trach mask. Currently on TPN. Currently on IV Zerbaxa and vancomycin 09/15. Patient seen and examined.Vital signs done showed the patient overnight, heart rate 106, blood pressure 107/40, currently on ventilation. Labs reviewed showed WBC 7.27, hemoglobin 7.5, sodium 148 on potassium 4.3, BUN 23, creatinine 0.47 09/16. Patient seen and examined labs reviewed showing WBC 5.45, hemoglobin 9.6, platelet count 131, sodium 146, potassium 4.1, BUN 20, creatinine 0.47. Continue small amount of Levophed. Currently on Zerbaxa and vancomycin. Currently on TPN September 17: ICU. Patient has taken a turn for the worse today. Significant thick white secretions from the trach. Sinus rhythm. Receiving TPN. Patient is on Levophed and vasopressor. Rather high dose. FiO2 [address] of 10. [address] Ho earlier spoke to the patient/family. Remains full code September 18: ICU. Intubated FiO2 70 PEEP of 12. Sinus rhythm. Drips include IV propofol at 50 and Levophed at 0.13. Patient is off vasopressin. Patient secretions. Family at the bedside. September 19: ICU. Intubated. FiO2 50 and a PEEP of 12. Drips include IV Levophed and propofol. Also started on Lasix drip 10 mg an hour yesterday. Secretions present. September 20: ICU. Intubated. FiO2 50 and a PEEP of 12. Hemoglobin 6.3. Secondary to blood being given. Patient been on and off Levophed. On propofol. Lipids have been held. Continues with TPN. Lasix drip was discontinued. Lovenox has been held because of low hemoglobin. Unable anemia is felt to be combination of regular blood draws and possible element element of hemolysis from all the infection. No dark stool. Family at the bedside September 21: ICU. Intubated. Received 2 units of blood yesterday. Hemoglobin 7.6 today. Per nephrology renal replacement therapy. Dialysis access placed by Dr. Cadena. Patient earlier today on Levophed. Propofol. Getting TPN. Sinus rhythm. Urine output decreased September 22: ICU. Intubated. FiO2 15 of PEEP of 12. Seen earlier today. Dialysis being started. Been on IV Levophed propofol. Sinus rhythm. TPN. Sinus rhythm. September 23: ICU. Intubated. Due for another dialysis today. Saw the patient earlier today. Remains on IV Levophed propofol. Sinus rhythm. TPN. On fentanyl patch. September 24: ICU. Intubated. FiO2 40 and PEEP of 12. Remains on IV Levophed and propofol. IV TPN. Decrease trach secretions. IV antibiotics. Was due for dialysis earlier today. September 25: ICU. Intubated. FiO2 30%. Patient getting IV Levophed and propofol. IV TPN. Dialysis today. Receiving IV antibiotics. Does opens eyes occasionally. Some commands per nursing. September 26: ICU. Intubated. FiO2 30 and a PEEP of 8. Had 2 L hemodialysis removed yesterday. Getting hemodialysis today. Aiming for 2 to 3 L. Patient is on propofol. Currently Levophed on hold. Getting TPN. Patient is actually awake and following commands. Sinus rhythm. September 27: ICU. Intubated. FiO2 39 PEEP of 8. No dialysis today. Remains on IV Levophed propofol. TPN. There is a bedside. Patient asked me how is he doing. Had a lengthy information in terms of his guarded prognosis. Did tell him it is his choice about how he wishes to proceed. He needs to decide between treatment benefits versus in the suffering because of that entails from treatment and his recurrent infections etc. Especially in the context of decreased activity. Kidney failure, respiratory failure etc. September 28: ICU. Intubated. FiO2 30 and a PEEP of 8. For dialysis today. Off Levophed this morning. IV propofol. TPN. Some clear light to trach secretions. Colostomy working. Poor urine output. September 29: ICU. Intubated. IV propofol Levophed. TPN. Awake. Discussed with Dr. Holt. Prognosis very poor. Probably treatment is the point of getting futile. Patient needs about 34 more days to go to long-term ventilator setting. September 30: ICU. Intubated. IV propofol. Currently off Levophed. TPN. Getting dialysis today. Awake. IV antifungal. Given a unit of blood for hemoglobin of 6.9 Active Medications Albuterol/Ipratropium (Ipratropium-Albuterol 3 Ml Neb) 3 ml INHALATION RT-Q4H PRN PRN Reason: shortness of breath Last Admin: 09/30/24 11:31 Dose: 3 ml Artificial Tears (Artificial Tears-Hypromellose Drops 15 Ml Btl) 1 drops BOTH E YES QID PRN PRN Reason: Dry Eye(s) Last Admin: 09/04/24 12:52 Dose: 1 drops Chlorhexidine Gluconate (Chlorhexidine Gluconate 15 Ml Cup) 15 ml MUCOUS MEM BID ANNIE Last Admin: 09/30/24 08:56 Dose: 15 ml Dextrose/Water (Dextrose 50% Syringe 50 Ml) 25 ml IVP PER PROTOCOL PRN; Protocol PRN Reason: Hypoglycemia Dextrose/Water (Dextrose 50% Syringe 50 Ml) 50 ml IVP PER PROTOCOL PRN; Protocol PRN Reason: Hypoglycemia Fentanyl (Fentanyl 100mcg/Hr Patch) 1 patch TRANSDERM Q72H ANNIE; Protocol Last Admin: 09/28/24 10:02 Dose: 1 patch Furosemide (Furosemide 10 Mg/Ml 10 Ml Vial) 80 mg IV ONCE ONE Stop: 09/30/24 18:01 Heparin Sodium (Porcine) (Heparin Sodium,Porcine 5,000 Unit/Ml 1 Ml Vial) 5,000 unit SQ Q8HR ANNIE Last Admin: 09/30/24 08:55 Dose: 5,000 unit Hydrocortisone Sodium Succinate (Hydrocortisone Succinate 100 Mg/2 Ml Vial) 50 mg IV Q12HR ANNIE Last Admin: 09/30/24 08:55 Dose: 50 mg Hydromorphone HCl (Hydromorphone 1 Mg/Ml 1 Ml Syringe) 1 mg IVP Q3HR PRN PRN Reason: Moderate Pain (Scale 4 to 6) Last Admin: 09/30/24 08:48 Dose: 1 mg Anidulafungin 100 mg/ Sodium (Chloride) 130 mls @ 84 mls/hr IVPB DAILY [facility]; Protocol Last Admin: 09/30/24 09:46 Dose: 84 mls/hr Propofol 1,000 mg/ IV Solution 100 mls @ 32.34 mls/hr IV .Q3H6M ANNIE; Protocol Last Admin: 09/30/24 13:06 Dose: Not Given Norepinephrine Bitartrate 8 mg (/ Sodium Chloride) 258 mls @ 6.513 mls/hr IV .Q24H ANNIE; Protocol Last Admin: 09/30/24 08:56 Dose: Not Given Parenteral Vitamin Supplement 10 ml/ Zinc/Copper/Manganese/Selenium 1 ml/ Sodium Acetate 80 meq/ Sodium Chloride 44 meq / Calcium Gluconate 0.5 gm/Potassium Chloride 34 meq/Magnesium Sulfate 0.75 gm/Amino Acids/Dextrose 1,085.5 mls @ 55 mls/hr IV .[id number] [facility] Stop: 10/01/24 00:44 Last Admin: 09/30/24 04:55 Dose: 55 mls/hr Parenteral Vitamin Supplement 10 ml/ Zinc/Copper/Manganese/Selenium 1 ml/ Sodium Acetate 80 meq/ Sodium Chloride 56 meq / Calcium Gluconate 0.5 gm/Potassium Chloride 34 meq/Magnesium Sulfate 0.75 gm/Amino Acids/Dextrose 1,088.5 mls @ 55 mls/hr IV .[id number] [facility] Insulin Human Lispro (Insulin Lispro (Humalog) 100 Unit/Ml 10 Ml Vl) 0 unit SQ Q6HR ANNIE; Protocol Last Admin: 09/30/24 11:45 Dose: Not Given Lorazepam (Lorazepam 1 Mg/0.5 Ml Vial) 0.5 mg IV Q6HR PRN PRN Reason: Anxiety Last Admin: 09/15/24 18:26 Dose: 0.5 mg Miscellaneous Information (Pneumonia Protocol Utilized 1 Each Misc) 1 each PO ONCE PRN PRN Reason: Per Protocol Miscellaneous Information (Potassium Replacement Protocol 1 Each Misc) 1 each MISCELLANE DAILY PRN; Protocol PRN Reason: Per Protocol Miscellaneous Information (Magnesium Replacement Protocol 1 Each Misc) 1 each MISCELLANE DAILY PRN; Protocol PRN Reason: Per Protocol Naloxone HCl (Naloxone 0.4 Mg/Ml 1 Ml Vial) 0.2 mg IV Q2M PRN PRN Reason: Opioid Reversal Nystatin (Nystatin 100,000 Unit/Gm Powd 15 Gm) 1 applic TOPICAL BID ANNIE; Protocol Last Admin: 09/30/24 08:56 Dose: 1 applic Ondansetron HCl (Ondansetron 4 Mg/2 Ml Vial) 4 mg IVP Q6HR PRN PRN Reason: Nausea And Vomiting Last Admin: 09/01/24 19:41 Dose: 4 mg Pantoprazole Sodium (Pantoprazole 40 Mg/10 Ml Vial) 40 mg IV DAILY ANNIE Last Admin: 09/30/24 08:55 Dose: 40 mg Petrolatum (Zinc Oxide Paste (Z-Guard) 1 Applic) 1 applic TOPICAL BID PRN; Protocol PRN Reason: Wound Healing Social history: Patient started smoking at the age of [age] 1 pack a day stopped in 2016. Nonambulatory. Is cared by his son over. Who is also the DPOA Physical examination: VITAL SIGNS: Afebrile, 60, 24, 1 , 95% on FiO2 30% GENERAL:, Eyes open EYES: Pupils equal. Conjunctiva loan l. HEENT: External appearance of nose and ears normal, oral cavity dry NECK: JVD unable to assess; masses not palpable. Tracheostomy HEART: First and second heart sounds are normal; no edema. LUNGS: Respiratory rate increased, decreased breath sounds, some crackles ABDOMEN: Soft, nontender, liver spleen not palpable, no masses palpable. Double barrel ostomy. PSYCH: Following simple commands MUSCULOSKELETAL: Right BKA. Left foot drop. Left hand contracture. Right hand also with contracture but able to have some movements NEUROLOGICAL: Cranial nerves grossly intact; no facial asymmetry, slight movement in the right arm. L INVESTIGATIONS, reviewed in the clinical context: September 30: Hemoglobin 6.9 September 29: Hemoglobin 7 white count 5.2 potassium 3.6 creatinine 1.11 September 28: White count 6.0 hemoglobin 7.2 pH 7.57 bicarb 29 BUN 28 creatinine 1.40 September 27: White count 6.9 hemoglobin 7.8 potassium 3.4 creatinine 0.87 September 26: White count 7.3 hemoglobin 7.5 platelets 204 potassium 3.4 creatinine 0.87 September 25: White count 7.4 hemoglobin 7.6 platelets 194 potassium 3.5 creatinine 1.06 September 24: White count 6.6 hemoglobin 7 platelets 158 potassium 4 BUN 58 creatin ine 1.52 phosphorus 6.2 : White count 9.0 hemoglobin 7.7 platelets 155 potassium 4.5 creatinine 1.69 September 22: White count 7.4 hemoglobin 7.3 platelets 114 potassium 5.4 BUN 110 creatinine 1.79 September 18: White count 14.9 hemoglobin 7.6 ABG show pH of 7.2PCO2 of 68P O2 was 77 potassium was 6.1 repeat 5.2 creatinine 0.82 September 17: White count 20 hemoglobin 8.5 platelets 199 potassium 4.2 BUN 25 crea tinine 0.4. ABG: pH 7.17 pCO2 79 PO277. September 02: White count 3.6 hemoglobin 9.7 platelets 130 potassium 3.9 BUN 23 creatinine 0.36 ionized calcium 4.3 TSH 2.7 Sputum culture: Pseudomonas aeruginosa: Sensitive to Zosyn, tobramycin, ceftazidime Sputum culture: Pseudomonas aeruginosa August 30: White count 3.5 hemoglobin 10.0 platelets 133 potassium 3.5 creatinine 0.36 August 29, 2024: White count 6.2 hemoglobin 12.3 platelets 216 sodium 128 potassium 3.1 BUN 50 creatinine 0.46 lactic acid 2.1 calcium 10.8 phosphorus 3.0 troponin I 0.016 UA: Negative for nitrite Influenza type A, type B, RSV, SARS-CoV-2: Not detected EKG tracing personally reviewed by me-normal sinus rhythm Chest x-ray film personally reviewed by me-right basilar infiltrate Previous labs: Sputum culture July 20, 2024: Pseudomonas aeruginosa Assessment plan: - basal pneumonia. Previous admission sputum was positive for Pseudomonas aeruginosa-:: Has received different antibiotics. Completed course of antibiotic Being followed by pulmonary, and ID - Candidemia likely source left chest wall PICC line that has been discontinued. And repeat blood cultures on September 22 negative. Line changes are being followed by ID IV antifungal - Fluid overload Had received Lasix drip - Acute kidney injury from ATN from septic shock. Also consider vancomycin toxicity. Oliguric. Volume overload. Dialysis catheter placed by Dr. Cadena-September 21. First dialysis was on September 22.-Has been getting dialysis per nephrology - Metabolic alkalosis - Septic shock: Levophed has been on and off - Acute on chronic hypoxic and hypercapnic respiratory failure, vent dependent at night at home: Slow to respond On ventilator support. Propofol - Tracheostomy with trach collar -Acute normocytic anemia of chronic disease and hospital-acquired anemia from blood draws and possible hemolysis from infection Today received 6 units of blood - Thrombocytopenia likely from sepsis Follow - Right below-knee amputation - Chronic quadriparesis. Including left foot drop. Left arm contracture. Some right hand contracture. Some movement in the right arm - Crohn's disease with double barrel ostomy bag in place since 09/2021 - TPN and lipids Lipids have been held during propofol - Full code - DPOA, son BECKY 6th unit of blood. Dialysis today. Past Medical History Past Medical History: CVA/TIA, Deep Vein Thrombosis (DVT), Pneumonia Additional Past Medical History / Comment(s): Hx CVA in 2012, DVT R arm, Crohns. colostomy Bag placed in 09/2021. History of Any Multi-Drug Resistant Organisms: MRSA, Other MDRO Date of last positivie culture/infection: 07/20/24-Other MDRO; 12/14/23-MRSA MDRO Source:: Other MDRO - sputum, BAL; MRSA- nasal Past Surgical History: Bowel Resection, Cholecystectomy, Orthopedic Surgery Additional Past Surgical History / Comment(s): R BKA, trach with chronic home vent Past Anesthesia/Blood Transfusion Reactions: No Reported Reaction Additional Past Anesthesia/Blood Transfusion Reaction / Comment(s): recalled from previous admission Smoking Status: Never smoker
[2024-09-30] MEDS: LIDOCAINE 1% INJ 10MG/ML (30 ML VIAL-PF) SQ ONE (15:40)
[2024-09-30] MEDS: MIDAZOLAM 2 MG/2 ML VIAL IVP ONE (15:40)
[2024-09-30] MEDS: fentaNYL (PF) 50 MCG/1 ML VIAL IVP ONE (15:41)
[2024-09-30] MEDS: HEPARIN SODIUM 1,000 UN/ML (10ML VL) MISCELLANE ONE (16:05)
--- NOTE | 2024-09-30 16:26 | P.PCN ---
Description of Procedure: Pre-op diagnosis is acute chronic renal failure [place]. Is a [facility] Procedure patient was brought to the [facility] patient has a right subclavian vein triple-lumen catheter left side of the neck and chest was prepped and draped usual sterile 1% lidocaine were infiltrated. Sound guided micropuncture introduced left jugular vein puncture guidewire was passed placed a 4 [place] sheath on top of the guided. Then we passed a regular guidewire under fluoroscopy control which was parked at the inferior vena cava at then we used a dilator advanced valvular guidewire we placed a sheath guidewire was removed and the catheter was introduced through the sheath tip of catheter in superior vena cava atrial junction flushed with heparin saline Hep-Lock with 3-0 nylon and dressing applied patient tolerated the procedure. Left femoral catheter will be removed in the intensive care unit patient transferred to the care unit x-ray of the chest dressing applied patient taught the procedure
[2024-09-30] MEDS: FUROSEMIDE 10 MG/ML 10 ML VIAL IV ONE (17:11)
--- NOTE | 2024-09-30 17:25 | XR ---
EXAMINATION TYPE: XR chest 1V confirm line plcnv DATE OF EXAM: 09/30/2024 5:16 PM COMPARISON: Chest radiographs from 09/30/2024. CLINICAL INDICATION: Male, 49 years old with history of confirm dialysis line; [facility] TECHNIQUE: XR chest 1V confirm line plcmt Frontal view of the chest. FINDINGS: Lungs/Pleura: No evidence of focal consolidation or pneumothorax. Blunting of the costophrenic angles is present. Pulmonary vascularity: Pulmonary vascular congestion. Heart/mediastinum: Cardiomediastinal silhouette is prominent in size. Musculoskeletal: No acute osseous pathology. Other findings: None Lines/Tubes: Tracheostomy cannula tip projecting over the trachea. Left central venous catheter with distal tip at the cavoatrial junction. IMPRESSION: pulmonary vascular congestion and bilateral pleural effusions. Correlate with BNP for congestive hear t failure. [facility] Myesha Mora, , 09/30/2024 5:23 PM
[2024-09-30 18:43] LABS: Glucose,Whole Blood 95 mg/dL (70-110)
[2024-10-01 00:03] LABS: Glucose,Whole Blood 119 mg/dL (70-110)
[2024-10-01] MEDS: [UNRECOGNIZED DRUG - REMARK] IV SCH (01:15)
[2024-10-01 04:10] LABS: HCT 25.8 % (39.6-50.0); HGB 7.6 g/dL (13.0-17.0); MCH 26.0 pg (27.0-32.0); MCHC 29.5 g/dL (32.0-37.0); MCV 88.4 fL (80.0-97.0); Platelet Count 212 10*3/uL (140-440); RBC 2.92 10*6/uL (4.40-5.60); RDW 21.1 % (11.5-14.5); WBC 6.43 10*3/uL (4.50-10.00)
[2024-10-01 04:24] LABS: African American GFR (CKD) 74 (>60 ml/min/1.73 sqM); Anion Gap 6 mmol/L; Blood Urea Nitrogen 27 mg/dL (9-20); Calcium 8.6 mg/dL (8.4-10.2); Carbon Dioxide 31 mmol/L (22-30); Chloride 97 mmol/L (98-107); Glucose 116 mg/dL (74-99); Magnesium 2.0 mg/dL (1.6-2.3); Non-African American GFR(CKD) 64 (>60 ml/min/1.73 sqM); Potassium 4.1 mmol/L (3.5-5.1); Sodium 134 mmol/L (137-145)
[2024-10-01 05:41] LABS: ABG HCO3 32 mmol/L (21-25); ABG PCO2 46 mmHg (35-45); ABG PH 7.45 (7.35-7.45); ABG PO2 68 mmHg (83-108); ABG TCO2 33 mmol/L (19-24)
[2024-10-01 05:42] LABS: Allen Test Performed? no
[2024-10-01 05:42] LABS: Glucose,Whole Blood 104 mg/dL (70-110)
--- NOTE | 2024-10-01 08:38 | XR ---
EXAMINATION TYPE: XR chest 1V portable DATE OF EXAM: 10/01/2024 4:34 AM COMPARISON: 09/30/2024 CLINICAL INDICATION: Male, 49 years old with history of Mechanical ventilation, , FINDINGS: Tracheostomy cannula. Surgical clips at the right base of the neck. Left-sided double-lumen hemodialy sis catheter with tips within the right atrium. Left PICC tip obscured by overlying double-lumen cath eter. Are mildly enlarged. Diffuse interstitial opacities persist. Hazy opacity throughout the right lung as well as bibasilar opacities persist. IMPRESSION: Overall similar findings with pulmonary vascular congestion. Possible mild pulmonary edema, right gre ater than left along with small effusions. [facility], , 10/01/2024 8:35 AM
--- NOTE | 2024-10-01 08:52 | P.PN ---
Subjective Progress Note Date: 09/30/24 Principal diagnosis: Reason for follow-up is sepsis and pneumonia/candidemia Patient is a 49-year-old male with a past medical history significant for CVA TIA DVT pneumonia history of complicated Crohn's disease in this patient who did have multiple abdominal surgeries patient also have a tracheostomy has been brought to the hospital with Generalized weakness did have a fever concerning for pneumonia on today's evaluation that is 09/30/2024,the patient continues to be afebrile patient remains to be debated on the vent FiO2 is currently at 30% no significant purulent secretion through the ET or any other changes reported by the nursing staff patient is off the pressor support. Patient did have a white count of 6.64 blood culture repeat from 09/22/2024 remains to be negative Objective - Vital Signs Vital signs: Vital Signs Temp 97.8 F 09/30/24 09:15 Pulse 70 09/30/24 13:00 Resp 26 H 09/30/24 13:00 BP 131/50 09/30/24 13:00 Pulse Ox 96 09/30/24 13:00 FiO2 30 09/30/24 12:00 Intake & Output 09/29/24 09/30/24 09/30/24 18:59 06:59 18:59 Intake Total 2155.855 880.464 786 Output Total 35 640 25 Balance 2120.855 240.464 761 Weight 97.7 kg Intake: IV 966 816 476 0.9 KVO 70 120 70 Anidulafungin 100 mg In 100 Sodium Chloride 0.9% 100 ml @ 84 mls/hr IVPB DAILY ANNIE Rx#:[id number] Potassium Chloride 20 meq 100 In Water For Injection 1 100ml.bag @ 50 mls/hr IVPB Q2H ANNIE Rx#: [id number] Pressure Bag 36 36 21 TPN 660 660 385 Intake, IV Titration 1189.855 64.464 Amount Mvi, Adult No.4 with Vit 1055.083 K 10 ml Trace (Conc-1Ml/ Dose) 1 ml Sodium Acetate 80 meq Sodium Chloride 4Meq/ml Vial 44 meq Calcium Gluconate 0.5 gm Potassium Chloride 24 meq Magnesium Sulfate gm 0. 75 gm In Amino Acids 5 %/ Dextrose 20 % 1,000 ml @ 55 mls/hr IV .[id number] ANNIE Rx#:[id number] Norepinephrine 8 mg In 34.772 Sodium Chloride 0.9% 250 ml @ 0.03 MCG/KG/MIN 6. 513 mls/hr IV .Q24H ANNIE Rx#:[id number] propofoL 1,000 mg In 100.000 64.464 Empty Bag 1 bag @ 50 MCG/ KG/MIN 32.34 mls/hr IV . Q3H6M ANNIE Rx#:[id number] Blood Product 310 Rc As-1 Unit 310 [id number] Output: Urine 35 40 25 Stool 600 Other: Voiding Method Indwelling Catheter Indwelling Catheter Indwelling Catheter ABP, PAP, CO, CI - Last Documented Arterial Blood Pressure 57/42 - Exam GENERAL DESCRIPTION: Middle-age male intubated on the vent RESPIRATORY SYSTEM: Unlabored breathing , decreased breath sounds at bases HEART: S1 S2 regular rate and rhythm , ABDOMEN: Soft , no tenderness EXTREMITIES: Swelling to the leg - Labs CBC & Chem 7: 10/01/24 03:45 10/01/24 03:45 Labs: Abnormal Lab Results - Last 24 Hours (Table) 09/29/24 09/29/24 09/30/24 Range/Units 18:02 23:18 03:15 RBC (4.40-5.60) 10*6/uL Hgb (13.0-17.0) g/dL Hct (39.6-50.0) % MCH (27.0-32.0) pg MCHC (32.0-37.0) g/dL ABG HCO3 (21-25) mmol/L ABG Total CO2 (19-24) mmol/L ABG O2 Saturation (94-97) % Hemoglobin (13.0-17.5) gm/dL Sodium 132 L (137-145) mmol/L Chloride 97 L (98-107) mmol/L BUN 36 H (9-20) mg/dL Creatinine 1.55 H (0.66-1.25) mg/dL Glucose 109 H (74-99) mg/dL POC Glucose (mg/dL) 113 H 133 H (70-110) mg/dL Crossmatch 09/30/24 09/30/24 09/30/24 Range/Units 03:15 04:08 05:04 RBC 2.58 L (4.40-5.60) 10*6/uL Hgb 6.9 L* (13.0-17.0) g/dL Hct 22.8 L (39.6-50.0) % MCH 26.7 L (27.0-32.0) pg MCHC 30.3 L (32.0-37.0) g/dL ABG HCO3 31 H (21-25) mmol/L ABG Total CO2 33 H (19-24) mmol/L ABG O2 Saturation 98.4 H (94-97) % Hemoglobin 7.2 L (13.0-17.5) gm/dL Sodium (137-145) mmol/L Chloride (98-107) mmol/L BUN (9-20) mg/dL Creatinine (0.66-1.25) mg/dL Glucose (74-99) mg/dL POC Glucose (mg/dL) (70-110) mg/dL Crossmatch See Detail 09/30/24 Range/Units 11:28 RBC 3.07 L (4.40-5.60) 10*6/uL Hgb 8.2 L (13.0-17.0) g/dL Hct 27.2 L (39.6-50.0) % MCH 26.7 L (27.0-32.0) pg MCHC 30.1 L (32.0-37.0) g/dL ABG HCO3 (21-25) mmol/L ABG Total CO2 (19-24) mmol/L ABG O2 Saturation (94-97) % Hemoglobin (13.0-17.5) gm/dL Sodium (137-145) mmol/L Chloride (98-107) mmol/L BUN (9-20) mg/dL Creatinine (0.66-1.25) mg/dL Glucose (74-99) mg/dL POC Glucose (mg/dL) (70-110) mg/dL Crossmatch Assessment and Plan (1) Pneumonia Current Visit: Yes Status: Acute Code(s): J18.9 - PNEUMONIA, UNSPECIFIED ORGANISM SNOMED Code(s): 941543123 (2) Sepsis Current Visit: Yes Status: Acute Code(s): A41.9 - SEPSIS, UNSPECIFIED ORGANISM SNOMED Code(s): 68652994 (3) Candidemia Current Visit: Yes Status: Acute Code(s): B37.7 - CANDIDAL SEPSIS SNOMED Code(s): 472791850 Plan: 1patient is a hospital with sepsis in this patient who did have fever tachycardia elevated lactic acid upon meeting criteria for SIRS/sepsis source likely pneumonia 2-patient is status post bronchoscopy lavage results currently growing Ps eudomonas that is resistant to Avycaz and corynebacterium, sensitivity on corynebacterium is pending 3-patient with Pseudomonas pneumonia for the patient has completed his antibiotic therapy 4-patient did have candidemia source is likely left chest wall PICC line which has been discontinued has been sent for the culture central line placed by employee benefits manager, blood culture repeat on 09/18/2024 positive blood culture repeat 09/22/2024 so far negative. 5patient repeat blood culture from 09/22/2024 has been negative patient is cleared to get a new PICC line with the patient is currently waiting for, also the nursing staff reported placement of a permanent dialysis catheter 6-patient currently being treated with Eraxis with the current last day of antifungal will be 10/06/2024 and monitor clinical course closely care discussed with the mother at the bedside Dictation was produced using [employer] dictation software. please excuse any grammatical, word or spelling errors. Time with Patient: Less than 30
--- NOTE | 2024-10-01 10:21 | P.PN ---
Subjective Patient is seen in follow-up for acute kidney injury, hemodialysis dependent. Started on hemodialysis September 22, 2024. Receiving TPN. Off vasopressors. Tolerated 3 L ultrafiltration yesterday. Vital signs are stable. General: Resting in bed. HEENT: Tracheostomy noted. LUNGS: Scattered rhonchi. HEART: Rate and Rhythm are regular. ABDOMEN: Ostomy noted. EXTREMITITES: 2+ edema left lower extremity. Right BKA. Objective - Vital Signs Vital signs: Vital Signs Temp 98.5 F 10/01/24 08:00 Pulse 68 10/01/24 10:00 Resp 24 10/01/24 10:00 BP 111/43 10/01/24 10:00 Pulse Ox 94 L 10/01/24 10:00 FiO2 30 10/01/24 08:00 Intake & Output 09/30/24 10/01/24 10/01/24 18:59 06:59 18:59 Intake Total 1724.529 815.871 136 Output Total 7640 1020 15 Balance -5915.471 -204.129 121 Weight 92.8 kg Intake: IV 816 748 136 0.9 KVO 120 110 20 Pressure Bag 36 33 6 TPN 660 605 110 Intake, IV Titration 98.529 67.871 Amount Norepinephrine 8 mg In 4.161 Sodium Chloride 0.9% 250 ml @ 0.03 MCG/KG/MIN 6. 513 mls/hr IV .Q24H ANNIE Rx#:[id number] propofoL 1,000 mg In 98.529 63.71 Empty Bag 1 bag @ 50 MCG/ KG/MIN 32.34 mls/hr IV . Q3H6M ANNIE Rx#:[id number] Blood Product 310 Rc As-1 Unit 310 [id number] Hemodialysis 500 Output: Urine 40 20 15 Stool 1100 1000 Hemodialysis 3500 Hemodialysis Net Amount 3000 Other: Voiding Method Indwelling Catheter Indwelling Catheter Indwelling Catheter ABP, PAP, CO, CI - Last Documented Arterial Blood Pressure - Labs CBC & Chem 7: 10/01/24 03:45 10/01/24 03:45 Labs: Abnormal Lab Results - Last 24 Hours (Table) 09/30/24 10/01/24 10/01/24 Range/Units 11:28 00:00 03:45 RBC 3.07 L (4.40-5.60) 10*6/uL Hgb 8.2 L (13.0-17.0) g/dL Hct 27.2 L (39.6-50.0) % MCH 26.7 L (27.0-32.0) pg MCHC 30.1 L (32.0-37.0) g/dL ABG pCO2 (35-45) mmHg ABG pO2 (83-108) mmHg ABG HCO3 (21-25) mmol/L ABG Total CO2 (19-24) mmol/L Hemoglobin (13.0-17.5) gm/dL Sodium 134 L (137-145) mmol/L Chloride 97 L (98-107) mmol/L Carbon Dioxide 31 H (22-30) mmol/L BUN 27 H (9-20) mg/dL Creatinine 1.31 H (0.66-1.25) mg/dL Glucose 116 H (74-99) mg/dL POC Glucose (mg/dL) 119 H (70-110) mg/dL 10/01/24 10/01/24 Range/Units 03:45 05:36 RBC 2.92 L (4.40-5.60) 10*6/uL Hgb 7.6 L (13.0-17.0) g/dL Hct 25.8 L (39.6-50.0) % MCH 26.0 L (27.0-32.0) pg MCHC 29.5 L (32.0-37.0) g/dL ABG pCO2 46 H (35-45) mmHg ABG pO2 68 L (83-108) mmHg ABG HCO3 32 H (21-25) mmol/L ABG Total CO2 33 H (19-24) mmol/L Hemoglobin 7.8 L (13.0-17.5) gm/dL Sodium (137-145) mmol/L Chloride (98-107) mmol/L Carbon Dioxide (22-30) mmol/L BUN (9-20) mg/dL Creatinine (0.66-1.25) mg/dL Glucose (74-99) mg/dL POC Glucose (mg/dL) (70-110) mg/dL Assessment and Plan Plan: Assessment: 1. Acute kidney injury secondary to ATN secondary to septic shock and vancomycin toxicity. Oliguric. Started on hemodialysis October 02, 2024 via femoral catheter. Now has permacath. 2. Septic shock secondary to pneumonia and fungemia. Currently off Levophed. 3. Acute blood loss anemia status post blood transfusions this admission. 4. Volume overload. Better with UF. 5. Chronic hypoxic and hypercapnic respiratory failure, home ventilator dependent. 6. History of cardiac arrest. 8. Status post right BKA. Plan: Hemodialysis tomorrow. TPN per surgery. No response to IV Lasix given September 30, 2024. Continue to monitor for renal recovery. Phosphorus level 2.5 dated October 01, 2024. Add Aranesp.
[2024-10-01] MEDS: DARBEPOETIN ALFA 40 MCG/0.4 ML SYRINGE SQ SCH (11:38)
--- NOTE | 2024-10-01 11:59 | P.PN ---
Subjective Progress Note Date: 10/01/24 This is a 49-year-old white male familiar to my service, history of paraplegia, home vent dependent, history of tracheostomy, patient had multiple admissions to the ICU for recurrent episodes of pneumonia and respiratory failure requiring ventilatory support. On his last admission patient was eventually discharged home on a home ventilator, and this was back on 08/04/2024. Patient was discharged home with a PICC line, patient was in the ER yesterday on 08/28 for abnormal labs mostly low potassium and low sodium discharged home however he came back today complaining of shortness of breath, has been ventilator dependent all along. Chest x-ray showed basically bibasilar opacities/atelectasis, doubt pneumonia, the findings in the left lower lobe are chronic. Patient did have previous history of pneumonia involving the left lower lobe and he had multiple bronchoscopies in the past. Bronchial cultures and sputum cultures have been positive in the past for mostly Pseudomonas aeruginosa. Patient was seen in the ER today, and he is already on cefepime for empiric coverage for potential left lower lobe pneumonia, patient had abnormal electrolytes with relatively low sodium low potassium, no leukocytosis, normal renal profile, blood pressure was soft, and he was given fluid boluses. Lactic acid was 2.1, D-dimer is normal, patient was admitted, and this consult was initiated. 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 Patient was seen today on 08/30/2024, patient continues to have intermittent episodes of fever with Tmax of 102, patient required norepinephrine and he remains on norepinephrine at 0.04 mcg/kg/min remains on LR at 130 cc/h remains on his home ventilator at tidal volume of 450 rate of 20 FiO2 45% and PEEP of 5. Seems comfortable, not in distress, his WBC is 3.5 hemoglobin 10.0 electrolytes are normal renal profile is normal potassium is borderline low. Patient remains on cefepime, vancomycin was added because of his previous history of MRSA, and is on cefepime for previous history of pseudomonal infection and now that the patient may be septic it is more of a reason to broaden the spectrum of antibiotics coverage with cefepime and vancomycin. Sputum cultures and blood cultures are pending. Patient does have history of pseudomonal and history of MRSA infections, and I discontinued his Zithromax today replace Zithromax with vancomycin. Viral screen is negative Legionella antigen is negative. Chest x- ray is relatively unchanged continues to show bibasilar opacities atelectasi s/pneumonia. Progress note dated August 31, 2024. The patient is seen today in room 252. The patient was admitted a couple days ago, to the intensive care unit. The patient is currently on mechanical ventilator, actually his home ventilator. He is on volume assist-control, rate 20, tidal volume 450, FiO2 45% PEEP of 5. The patient is getting lactated Ringer's at 130 cc an hour, TPN at 91 cc an hour, norepinephrine at 8 mcg/min. Doppler of the left upper extremity was negative. He continues on Zerbaxa, and vancomycin. We will check a procalcitonin level. Cultures thus far are negative. He does have a previous history of methicillin-resistant Staph aureus infection, and pseudomonal infections. White count was 2.21, hemoglobin 9.3, hematocrit 32, platelet count 1 61,000. D-dimer was 5.78. Sodium 132, potassium 4.3, chlorides 106, CO2 21, BUN 18, creatinine 0.28. Glucose was 141. Calcium 7.8. C. difficile study was negative. Urine Legionella antigen was negative. Microbiologic studies are currently negative. Chest x-ray shows bibasilar airspace opacities, possibly consistent with pneumonia. 09/01/24 - The patient is seen today in room 252. Admitted to the hospital and the intensive care unit on 08/29/2024. The patient is currently on mechanical ventilator, his one from home. He is on volume assist control, rate of 20, tidal volume of 450, FiO2 45% and PEEP of 5. He currently has LR running at 50 cc/h, TPN at 91 cc/h, Zerbaxa and tobramycin. Chest Xray done this morning showed stable airspace opacities. Cultures are positive for pseudomonas aeruginosa, awaiting sensitivities. WBCs 2.69, Hgb 8.9, Hct 31.5, PLT 153, Na 135, K 3.4, Cl 109, HCO3 19, BUN 22, Cr 0.34, Phos 2.4. 09/02/24 - He is seen today in room 252. Admitted to the hospital and ICU on 08/29/24. He continues on mechanical ventilator, his one from home. He remaines on volume assist control, rate of 20, tidal volume of 450, FiO2 45% and PEEP of 5. He continues to have LR running at 50 cc/h, TPN at 91 cc/h, norepinephrine at 0.13 mcg/kg/min, Zebraxa and Tobramycin. Chest XRay this morning showed stable airspace opacities. Continue to await sensitivity of pseudomonas sputum culture. Lab work shows WBCs 3.64, Hgb 9.7, Hct 33.5, PLT 130, Na 133, K 3.9, bicarb 21, BUN 23, Cr 0.36, Ca 7.8, Mg 2.4, Albumin 2.3. 09/03/24 - He is seen in room 252. Admitted to the hospital and ICU on 08/29/24. He continues on mechanical ventilator, his one from home. He remaines on volume assist control, rate of 20, tidal volume of 450, FiO2 45% and PEEP of 5. He continues to have LR running at 50 cc/h, TPN at 91 cc/h, norepinephrine at 0.24 mcg/kg/min, Avycaz and Tobramycin. Zebraxa was discontinued as there was no reported sensitivity to it. Lab work shows WBCs 9.40, Hgb 8.8, Hct 30.6, PLT 100, Na 130, K 3.6, bicarb 23, BUN 25, Cr 0.51, Ca 7.8, Ionized Ca 4.6, Phos 3.3, Mg 2.1, TSH 2.710 and random cortisol 13.1. 09/04/24 - He is seen in room 252. Admitted to the hospital and ICU on 08/29/24. He continues on mechanical ventilator, his one from home. He remaines on volume assist control, rate of 20, tidal volume of 450, FiO2 45% and PEEP of 5. He continues to have LR running at 50 cc/h, TPN at 91 cc/h, norepinephrine at 0.24 mcg/kg/min, Avycaz and Tobramycin. Lab work shows sodium 133, potassium 3.5, bicarb 24, BUN 27, creatinine 0.47, calcium 7.9, ionized calcium 4.6, magnesium 1.9, phosphorus 3.0, total bilirubin 1.7, AST 57, ALT 45, alkaline phosphatase 99. Progress note dated September 05, 2024. 49-year-old male well-known to our service. He is seen today in room 252. He continues on volume assist-control, rate 20, tidal 450, FiO2 45%, PEEP of 5. The patient has refused blood gases. Currently, he is getting TPN at 65 cc an hour, norepinephrine at 1 mcg/min, LR at 50 cc/h. Clinically, the patient is doing well. His chest x-ray remains about the same. Yesterday he was on a hig her dose of norepinephrine, and also was on vasopressin. Both have been weaned off. Current labs include a sodium 136, potassium 4.1, chlorides 101, CO2 28, BUN 30, creatinine 0.37. Glucose 153. Albumin is 2.2. Previous sputum, from August 29 with positive for Pseudomonas aeruginosa. Chest x-ray is largely unchanged. Progress note dated September 06, 2024. 49-year-old male again seen today in the intensive care unit, room 252. He remains on mechanical ventilator, actually his home ventilator, with settings of volume assist-control, rate 20, tidal volume 450, FiO2 45%, PEEP of 5. No blood gases today. The patient has been refusing. He is getting lactated Ringer's at 50 cc an hour, TPN at 65 cc an hour. He continues on the same antibiotics. White count 5.21, hemoglobin 7.9, hematocrit 27.5, and platelet count 64,000. Sodium 141, potassium 3.5, chlorides 102, CO2 32, BUN 25, and creatinine 0.35. Glucose is 152. Calcium is 8. Albumin is 2.1. Chest x-ray is largely unchanged. 09/07/2024, the patient remains on a mechanical ventilator. The patient is having excessive respiratory secretions. Attempts to suction this patient has failed as the secretions are quite thick and the patient has had episodes of bradycardia while suctioning. Remains on TPN at 65 cc an hour and lactated Ringer at 50 cc an hour. Remains on assist-control mode mechanical ventilation at rate of 20, tidal volume of 450, FiO2 of 100% with a PEEP of 8. Patient has refused to have an arterial line. The patient has refused blood gases. Urine output is adequate. No hypotension. He has a double-lumen catheter in his left chest and the left forearm IV line.He is afebrile. He continues to have multidrug-resistant Pseudomonas in his sputum. The patient remains on ceftazidime/avibactam per IDs recommendations. He is also on IV tobramycin. Remains on stress dose hydrocortisone. Blood work shows a white cell count of 6.9, hemoglobin 7.9 and a platelet count of 90. BUN is 24 with a creatinine of 0.33. Sodium is 143 and a potassium level of 3.7. Bicarb level is at 33. Output from the ileostomy bag is high and the net fluid balance is +1.2 L over the past 24 hours. Airway pressures on the mechanical ventilator are elevated with an elevated peak airway pressure around 36 consistent with excessive respiratory secretions and mucous plugs. Chest x-ray shows atelectatic changes infiltrates in lung bases along with some scattered hazy bilateral pulmonary infiltrates. 09/08/2024, the patient is being seen for a follow-up. On today's evaluation, the patient is awake on no sedation. His chest x-ray showing worsening bilateral pulmonary filtrates. Running low-grade fever. A bronchoscopy in the BAL was done yesterday and the results are still pending for now. He remains on assist-control mode at rate of 20, tidal volume of 450, FiO2 of 60% with a PEEP of 8. He remains on lactated Ringer at rate of 50 cc an hour and TPN at rate of 65 cc an hour. He remains on IV Lasix. He remains on ceftazidime/avibactam regarding his multidrug-resistant Pseudomonas. He is also on tobramycin. The white cell count is 6 with a hemoglobin 7.7 and platelet count of 77. Sodium is at 143, BUN 24 with a creatinine of 0.2. Serum bicarb is at 34. LFTs are within normal limits. The patient had no blood cares for today. He has refused blood gases. On a separate note, cardiology was consulted regarding the episodes of bradycardia that the patient is encountering. Upon sectioning, the patient is having episodes of cardiac block, likely third-degree AV block that last around 5 to 8 seconds. Patient was taken off the scopolamine patch. On 09/09/2024, the patient remains on a mechanical ventilator. He is complaining of shortness of breath even while being on the mechanical ventilator. Repeat chest x-ray was done today and the patient has developed diffuse infiltrates bilaterally greater in the lung bases and there is interval worsening in the chest x-ray findings. The bronchoalveolar lavage that was obtained earlier on 09/07/2024 showed Pseudomonas aeruginosa and corynebacterium. The patient remains on ceftazidime avibactam and tobramycin. Vancomycin was also added. He is running a low-grade fever with a Tmax of 100.7. He remains on assist-control mode mechanical ventilation at rate of 20, tidal volume of 450, FiO2 of 60% with a PEEP of 8. The patient did not have a blood gas today. Fluid balance is +2.6 L over the past 24 hours. He is currently on IV Lasix 20 mg IV push every 8 hours. The patient is also on TPN at rate of 65 cc an hour and lactated Ringer at rate of 50 cc an hour. The white cell count is 4.6 with a heme of 7.3 and a platelet count of 72. Sodium is at 144, bicarb is at 34, BUN 22 with a creatinine of 0.38. Chloride is 103. Calcium levels at 7.4, phosphorus 3.6, LFTs are normal. Albumin levels at 2.1. Arousable, able to communicate. No significant cardiac arrhythmias over the past 24 hours. 09/10/2024, patient is awake and alert and communicating. Continues to have on and off episodes of shortness of breath while being on a mechanical ventilator. Oxygenation is borderline and the patient's pulse ox remains low. Unable to obtain any blood gases as the patient has declined arterial blood draws. He is on assist-control mode rate of 20, tidal volume of 450, FiO2 of 70% with a PEEP of 10. Remains on TPN at rate of 35 cc an hour and lactated Ringer at rate of 50 cc an hour. Fluid balance is +2.6 L over the past 24 hours.the white cell count is 6.3, hemoglobin is at 7.4, platelet count is a 73 and the patient remains on therapeutic dose of Lovenox. The patient's sodium levels at 143, K is at 3.3, bicarb is at 40 with a BUN of 21 and a creatinine of 0.8. Blood sugar is 140. The most recent lavage from the right lower lobe was positive for Pseudomonas aeruginosa and corynebacterium. The patient remains on a combination of ceftazidime antibacterial combination, tobramycin and IV vancomycin. Output from ileostomy is in order of 800 cc over the past 8 hours. Remains on IV Lasix. Chest x-ray is unchanged and it shows bilateral pulmonary infiltrates, diffuse increased interstitial lung markings, lines and catheters are in place, tracheostomy tube is in place. 09/11/2024, the patient is stable, awake and alert and communicating. Remains on TPN for nutritional support with rate of 75 cc an hour. Remains on the same mechanical ventilator settings and the patient remains on assist-control mode at rate of 20, tidal volume of 450, FiO2 of 60% with a PEEP of 8. Fluid balance is -50 cc over the past 24 hours and the patient remains on IV Lasix 20 mg every 8 hours. The biotic coverage remains unchanged and the patient remains on a combination of ceftazidime IV Bactrim, tobramycin and vancomycin. The white cell count is at 4.7 with a hemoglobin of 7.1 and a platelet count of 89. BUN is 20 with a creatinine of 0.25. Sodium levels at 142. Serum iron levels at 16. Vancomycin trough is at 17. Follow-up chest x-ray from today shows stable bilateral pulmonary filtrates and pleural effusions bilaterally. Tracheostomy tube remains in good location. The patient continues to have high output through the ileostomy. Currently afebrile. No cardiac arrhythmias have been noted. 09/12/2024, patient is resting comfortably in bed. Remains on a mechanical ventilator. Unable to wean. Chest x-ray still showing bilateral pulmonary filtrates consistent with pneumonia. The patient is on assist-control mode at rate of 20, tidal volume of 450, FiO2 of 50% and a PEEP of 8. Remains negative fluid balance as the patient is being diuresed with IV Lasix. Fluid balance is -1 L over the past 24 hours. Remains on Lasix 20 mg IV push every 8 hours. Hemoglobin from this morning was 5.8. Repeat hemoglobin came back at 7.4. Platelet counts are stable. No evidence of any GI bleeding. Remains on Lovenox therapeutic dose. Remains on TPN at rate of 75 cc an hour. White cell count is at 5, platelet count is at 93, BUN is 25 with a creatinine 0.4. Sodium levels at 144 and a potassium level is at 3.6. Ileostomy still functioning. Remains on broad-spectrum antibiotics. Remains on ceftolozane/tazobactam. Remains on vancomycin. Remains on stress dose hydrocortisone. 09/13/2024, the patient is being seen for a follow-up. No change in his condition over the past 24 hours. Remains on a mechanical ventilator. Awake and alert and communicating. Started on fentanyl patch and his pain is under better control and the patient is using fentanyl patch 75 mcg every 72 hours. Remains assist-control mechanical ventilation at rate of 20, tidal volume of 450, FiO2 50% with a PEEP of 8. Chest x-ray from today shows stable bilateral pulmonary infiltrates, no significant change compared to yesterday and the tracheostomy tube remains in place. The patient continues to have multifocal airspace disease. Fluid balance is +30 cc over the past 24 hours. TPN is running at a rate of 75 cc an hour. Afebrile. Hemoglobin in this morning was at 5.8. Recheck was 6.1. The platelet count is 817. Sodium is at 148, potassium 3.2, BUN 26 with a creatinine of 0.44. Serum bicarb is at 38. The patient has a triglyceride level of 152. Remains on ceftolozane tazobactam and vancomycin. On 09/28/2024, the patient is being seen for a follow-up. The patient remains ventilator dependent. This morning, the patient remains on a assist-control mode of mechanical ventilation at rate of 36, tidal volume of 400, FiO2 30% with a PEEP of 5. The blood gases from today showed pH of 7.57 with a PCO2 of 30 and PO2 of 70. Chest x-ray shows ongoing diffuse interstitial infiltrates and wor sening airspace disease in the right lung base and the patient is having limited amount of respiratory secretions. Currently on propofol running at 20 mcg/kg/min. 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 Blood culture was positive on 09/15/2024 and 09/18/2024 and the patient is currently on Eraxis. Repeat blood culture on 09/22/2024 was negative. ID is on the case. Lines were all removed and the patient has a right subclavian triple-lumen catheter: Inserted on 09/17/2024. The patient is currently on no pressors. The patient also has developed an acute kidney injury. The patient was started on hemodialysis on 09/22/2024 and the patient has a left femoral triple-lumen catheter in place. Last hemodialysis session was on 09/26/2024 and another hemodialysis session is to follow this morning. He remains on TPN running at 33 cc an hour. Arousable. Sedated. Blood work from today shows a BUN of 28 with a creatinine of 1.4. Sodium is at 129 and potassium is at 4.4. WBC count is 6 with a heme of 7.1 platelet count of 206. Afebrile for now. Ileostomy continues to show increased output. On 09/29/2024, the patient is being seen for a follow-up. On today's evaluation, the patient is arousable and awake and following commands. He is on propofol running at 20 mcg/kg/min. Remains on a mechanical ventilator and the patient is calm and comfortable with limited respiratory secretions. He is on assist- control at rate of 24, tidal volume of 400, FiO2 of 30% with a PEEP of 8. pH is at 7.44 with a [id number] and PO2 of 80. Chest x-ray remains unchanged. Tracheostomy tube is in location. Remains on TPN for nutritional support arriving at 55 cc an hour. Remains on low-dose norepinephrine running at 0.01 mcg/kg/min. The patient underwent hemodialysis on 09/28/2024 with a total of 2 L of ultrafiltration. No urine output for now. Lab work is stable. The white seconds at 5.2 with a hemoglobin of 7 and a platelet count of 206. Electrolytes all within normal limits. Potassium levels are 3.6. Sodium is 134. BUN is 20 with a creatinine of 1.1. He remains on IV Eraxis. Most recent blood cultures been negative. Afebrile. 09/30/2024, the patient is being seen for a follow-up. This morning, the patient is calm and comfortable and the patient remains on propofol running at 10 mcg/kg/min. Patient is on no pressors. The patient has a left femoral hemodialysis catheter in place and his last hemodialysis session was on 09/26/2024 and the patient will undergo another session today. Urine output is in the order of 0 to 5 cc an hour. The patient will be also receiving a dose of Lasix 80 mg IV push per nephrology following hemodialysis. The patient is succe ssful insertion of the PICC line in the left upper extremity. Morning hemoglobin was 6.9 and the patient was given a unit of packed RBC. No evidence of any acute bleeding. Remains on a mechanical ventilator on assist-control mode rate of 24, tidal volume of 400, FiO2 30% with a PEEP of 6. Blood gas showed a pH of 7.45 with a [id number] and PO2 of 94. The chest x-ray shows no significant interval change. Afebrile. Hemodynamically stable. Ileostomy is functional. TPN is running at a rate of 55 cc an hour. Rest of the labs noted in the patient's hemoglobin posttransfusion came back at 8.2. The white cell count 6.6. Platelet count is at 220. BUN 36 with a creatinine of 1.55 and the sodium is 132 and a potassium level is at 4.1. On 10/01/2024, the patient is being seen for a follow-up. Condition is essentially unchanged compared to yesterday. Remains on propofol running at 10 mcg. Remains on assist-control mode of mechanical ventilation at rate of 24, tidal volume of 400, FiO2 of 30% with a PEEP of 5. pH is 7.45 with a PCO2 of 45 and PO2 of 67. Repeat chest x-ray from today shows no significant interval change. Overall appearance is similar and the patient has pulm vascular congestion and edema is slightly worse on the right compared to the left with possible development of a right-sided pleural effusion. He is not producing any urine. He has not responded to IV Lasix. He is less hemodialysis session was yesterday. He remains on IV Eraxis. Follow-up blood cultures have been sent. Their white cell count is 6.4 with a hemoglobin 7.6 and platelet count of 212. BUN 27 with a creatinine of 1.3 and sodium is at 134. The patient is currently on no pressors. Afebrile. Hemodynamically stable. Ileostomy is functional. Remains on TPN at a rate of 55 cc an hour. Objective - Vital Signs Vital signs: Vital Signs Temp 98.5 F 10/01/24 08:00 Pulse 75 10/01/24 08:30 Resp 32 H 10/01/24 08:30 BP 134/57 10/01/24 08:30 Pulse Ox 97 10/01/24 08:30 FiO2 30 10/01/24 08:00 Intake & Output 09/30/24 10/01/24 10/01/24 18:59 06:59 18:59 Intake Total 1724.529 815.871 136 Output Total 7640 1020 15 Balance -5915.471 -204.129 121 Weight 92.8 kg Intake: IV 816 748 136 0.9 KVO 120 110 20 Pressure Bag 36 33 6 TPN 660 605 110 Intake, IV Titration 98.529 67.871 Amount Norepinephrine 8 mg In 4.161 Sodium Chloride 0.9% 250 ml @ 0.03 MCG/KG/MIN 6. 513 mls/hr IV .Q24H ANNIE Rx#:[id number] propofoL 1,000 mg In 98.529 63.71 Empty Bag 1 bag @ 50 MCG/ KG/MIN 32.34 mls/hr IV . Q3H6M ANNIE Rx#:[id number] Blood Product 310 Rc As-1 Unit 310 [id number] Hemodialysis 500 Output: Urine 40 20 15 Stool 1100 1000 Hemodialysis 3500 Hemodialysis Net Amount 3000 Other: Voiding Method Indwelling Catheter Indwelling Catheter Indwelling Catheter ABP, PAP, CO, CI - Last Documented Arterial Blood Pressure - Exam No acute distress, currently connected to the ventilator. He has a tracheostomy tube in place. The patient has a #6 Shiley tracheostomy tube in place. Lethargic, follows simple commands. Profoundly weak in all 4 extremities. The patient is currently on propofol for sedation. Able to communicate. HEENT examination is grossly unremarkable. Mucous membranes are moist. No oral lesions. Tracheostomy tube is in place. The patient has a right subclavian triple-lumen catheter in place Neck supple. Full range of motion. No adenopathy thyromegaly or neck vein dis tention. Cardiovascular examination reveals regular rhythm rate. S1-S2 normal. No S3 or S4. No discernible murmur noted. Lungs reveal clear breath sounds. Breath sounds are diminished bilaterally and scattered rhonchi heard throughout the lung craft bilaterally. Tracheostomy tube in place. Abdomen reveals an enterocutaneous fistula, normal bowel sounds. No tenderness. No masses. The patient has a left femoral dialysis catheter in place. Extremities are intact. No cyanosis clubbing and there is edema in his left lower extremity and upper extremities bilaterally. The patient has a below-knee amputation his right lower extremity. Skin is without rash or lesion. Neurologic examination is brief but nonfocal. He does have significant muscle atrophy, and contractures. He has a right below the knee amputation. Generalized profound weakness. Weak cough. Weak motor functions. - Labs CBC & Chem 7: 10/01/24 03:45 10/01/24 03:45 Labs: Abnormal Lab Results - Last 24 Hours (Table) 09/30/24 09/30/24 10/01/24 Range/Units 04:08 11:28 00:00 RBC 3.07 L (4.40-5.60) 10*6/uL Hgb 8.2 L (13.0-17.0) g/dL Hct 27.2 L (39.6-50.0) % MCH 26.7 L (27.0-32.0) pg MCHC 30.1 L (32.0-37.0) g/dL ABG pCO2 (35-45) mmHg ABG pO2 (83-108) mmHg ABG HCO3 (21-25) mmol/L ABG Total CO2 (19-24) mmol/L Hemoglobin (13.0-17.5) gm/dL Sodium (137-145) mmol/L Chloride (98-107) mmol/L Carbon Dioxide (22-30) mmol/L BUN (9-20) mg/dL Creatinine (0.66-1.25) mg/dL Glucose (74-99) mg/dL POC Glucose (mg/dL) 119 H (70-110) mg/dL Crossmatch See Detail 10/01/24 10/01/24 10/01/24 Range/Units 03:45 03:45 05:36 RBC 2.92 L (4.40-5.60) 10*6/uL Hgb 7.6 L (13.0-17.0) g/dL Hct 25.8 L (39.6-50.0) % MCH 26.0 L (27.0-32.0) pg MCHC 29.5 L (32.0-37.0) g/dL ABG pCO2 46 H (35-45) mmHg ABG pO2 68 L (83-108) mmHg ABG HCO3 32 H (21-25) mmol/L ABG Total CO2 33 H (19-24) mmol/L Hemoglobin 7.8 L (13.0-17.5) gm/dL Sodium 134 L (137-145) mmol/L Chloride 97 L (98-107) mmol/L Carbon Dioxide 31 H (22-30) mmol/L BUN 27 H (9-20) mg/dL Creatinine 1.31 H (0.66-1.25) mg/dL Glucose 116 H (74-99) mg/dL POC Glucose (mg/dL) (70-110) mg/dL Crossmatch Assessment and Plan Plan: Acute on chronic hypoxic respiratory failure. The patient remains on a mechanical ventilator. The patient has bilateral pleural effusion and bilateral pneumonia with multidrug-resistant Pseudomonas aeruginosa. The patient was initially treated with ceftazidime/tazobactam and tobramycin combination. Repeat bronchoscopy on 09/07/2024 shows a positive Pseudomonas aeruginosa and corynebacterium in the BAL collected from the right lower lobe. The patient was subsequently treated with ceftolozane /tazobactam and vancomycin. There is also development of bilateral pleural effusion and the patient also has an area of consolidation in the right lung base. The respiratory status is stable. Chest x-ray findings remain stable. Sepsis with systemic fungemia and blood culture was positive for Bella parapsilosis, currently on IV Eraxis, initial blood culture was positive on 09/15/2024 and repeat cultures from 09/18/2024 was positive for Bella. Most recent blood culture from 09/22/2024 was negative. The patient remains hemodynamically stable and the patient is afebrile. No significant leukocytosis. Repeat cultures are still pending. The patient will be completing a total of 2 weeks course of Eraxis post negative blood culture. Septic shock, recovered, currently off pressors Acute kidney injury, currently on hemodialysis, last hemodialysis session of hemodialysis was completed on 09/30/2024. Did not respond to any Lasix. History of severe tracheal stenosis, S/P tracheostomy. 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 Chronic anemia, with an acute drop in hemoglobin down to 6.8, posttransfusion with a unit of packed RBC. Hemoglobin is stable for now. History of DVT. History of CVA. History of right below-knee amputation. Previous history of asystole/cardiac arrest, 2021. History of Crohn's disease, S/P enterocutaneous fistula, diverting ileostomy. The patient remains on TPN for nutritional support. Plan: Continue ventilator support Patient is currently on no pressors Continue sedation with propofol 10 mcg/kg/min Continue IV Eraxis, to be completing a total of 2-week course following a negative blood culture. Another session of hemodialysis to be done today on 09/30/2024.hemodialysis to be completed today per nephrology Monitor hemoglobin and the patient was already transfused with a unit of packed RBC. Continues on TPN at 55 cc an hour, IV fluids or KVO continue stress dose hydrocortisone Heparin subcu for DVT prophylaxis fentanyl patch to 100 mcg on a daily basis for better pain control IV Protonix Monitor ileostomy output Prognosis remain extremely poor. Prognosis remains extremely poor due to above-mentioned comorbidities. Will continue to follow and make further recommendation based on his progress. This evaluation was done at 35 minutes. Working on long-term placement in a facility with capability to undergo mechanical ventilation and hemodialysis. Time with Patient: Greater than 30
[2024-10-01 12:19] LABS: Glucose,Whole Blood 114 mg/dL (70-110)
--- NOTE | 2024-10-01 15:09 | P.PN ---
Subjective Progress Note Date: 10/01/24 Principal diagnosis: Reason for follow-up is sepsis and pneumonia/candidemia Patient is a 49-year-old male with a past medical history significant for CVA TIA DVT pneumonia history of complicated Crohn's disease in this patient who did have multiple abdominal surgeries patient also have a tracheostomy has been brought to the hospital with Generalized weakness did have a fever concerning for pneumonia on today's evaluation that is 10/01/2024,the patient remains to be afebrile, patient is intubated on the vent requiring 30% supplemental oxygen and mentioned breathing comfortably with no chest pain or worsening cough.Patient denies having any nausea or vomiting, no abdominal pain mention feeling slightly better. Patient white count 6.43, creatinine is 1.31 Objective - Vital Signs Vital signs: Vital Signs Temp 98.1 F 10/01/24 12:00 Pulse 77 10/01/24 15:00 Resp 25 H 10/01/24 15:00 BP 142/53 10/01/24 15:00 Pulse Ox 94 L 10/01/24 15:00 FiO2 30 10/01/24 12:00 Intake & Output 09/30/24 10/01/24 10/01/24 18:59 06:59 18:59 Intake Total 1724.529 157.340 4620.5 Output Total 7640 1020 1135 Balance -5915.471 -204.129 263.5 Weight 92.8 kg 92.8 kg Intake: IV 816 748 832 0.9 KVO 120 110 90 Anidulafungin 100 mg In 100 Sodium Chloride 0.9% 100 ml @ 84 mls/hr IVPB DAILY ANNIE Rx#:[id number] Pressure Bag 36 33 27 TPN 660 605 615 Intake, IV Titration 98.529 67.871 566.5 Amount Mvi, Adult No.4 with Vit 566.5 K 10 ml Trace (Conc-1Ml/ Dose) 1 ml Sodium Acetate 80 meq Sodium Chloride 4Meq/ml Vial 56 meq Calcium Gluconate 0.5 gm Potassium Chloride 34 meq Magnesium Sulfate gm 0. 75 gm In Amino Acids 5 %/ Dextrose 20 % 1,000 ml @ 55 mls/hr IV .[id number] ANNIE Rx#:[id number] Norepinephrine 8 mg In 4.161 Sodium Chloride 0.9% 250 ml @ 0.03 MCG/KG/MIN 6. 513 mls/hr IV .Q24H ANNIE Rx#:[id number] propofoL 1,000 mg In 98.529 63.71 Empty Bag 1 bag @ 50 MCG/ KG/MIN 32.34 mls/hr IV . Q3H6M ANNIE Rx#:[id number] Blood Product 310 Rc As-1 Unit 310 [id number] Hemodialysis 500 Output: Urine 40 20 35 Stool 1100 1000 1100 Hemodialysis 3500 Hemodialysis Net Amount 3000 Other: Voiding Method Indwelling Catheter Indwelling Catheter Indwelling Catheter ABP, PAP, CO, CI - Last Documented Arterial Blood Pressure 61/50 - Exam GENERAL DESCRIPTION: Middle-age male intubated on the vent RESPIRATORY SYSTEM: Unlabored breathing , decreased breath sounds at bases HEART: S1 S2 regular rate and rhythm , ABDOMEN: Soft , no tenderness EXTREMITIES: Swelling to the leg - Labs CBC & Chem 7: 10/01/24 03:45 10/01/24 03:45 Labs: Abnormal Lab Results - Last 24 Hours (Table) 10/01/24 10/01/24 10/01/24 Range/Units 00:00 03:45 03:45 RBC 2.92 L (4.40-5.60) 10*6/uL Hgb 7.6 L (13.0-17.0) g/dL Hct 25.8 L (39.6-50.0) % MCH 26.0 L (27.0-32.0) pg MCHC 29.5 L (32.0-37.0) g/dL ABG pCO2 (35-45) mmHg ABG pO2 (83-108) mmHg ABG HCO3 (21-25) mmol/L ABG Total CO2 (19-24) mmol/L Hemoglobin (13.0-17.5) gm/dL Sodium 134 L (137-145) mmol/L Chloride 97 L (98-107) mmol/L Carbon Dioxide 31 H (22-30) mmol/L BUN 27 H (9-20) mg/dL Creatinine 1.31 H (0.66-1.25) mg/dL Glucose 116 H (74-99) mg/dL POC Glucose (mg/dL) 119 H (70-110) mg/dL 10/01/24 10/01/24 Range/Units 05:36 12:17 RBC (4.40-5.60) 10*6/uL Hgb (13.0-17.0) g/dL Hct (39.6-50.0) % MCH (27.0-32.0) pg MCHC (32.0-37.0) g/dL ABG pCO2 46 H (35-45) mmHg ABG pO2 68 L (83-108) mmHg ABG HCO3 32 H (21-25) mmol/L ABG Total CO2 33 H (19-24) mmol/L Hemoglobin 7.8 L (13.0-17.5) gm/dL Sodium (137-145) mmol/L Chloride (98-107) mmol/L Carbon Dioxide (22-30) mmol/L BUN (9-20) mg/dL Creatinine (0.66-1.25) mg/dL Glucose (74-99) mg/dL POC Glucose (mg/dL) 114 H (70-110) mg/dL Assessment and Plan (1) Pneumonia Current Visit: Yes Status: Acute Code(s): J18.9 - PNEUMONIA, UNSPECIFIED ORGANISM SNOMED Code(s): 740226400 (2) Sepsis Current Visit: Yes Status: Acute Code(s): A41.9 - SEPSIS, UNSPECIFIED ORG ANISM SNOMED Code(s): 73940223 (3) Candidemia Current Visit: Yes Status: Acute Code(s): B37.7 - CANDIDAL SEPSIS SNOMED Code(s): 908431965 Plan: 1patient is a hospital with sepsis in this patient who did have fever tac hycardia elevated lactic acid upon meeting criteria for SIRS/sepsis source likely pneumonia 2-patient is status post bronchoscopy lavage results currently growing Pseudomonas that is resistant to Avycaz and corynebacterium, sensitivity on corynebacterium is pending 3-patient with Pseudomonas pneumonia for the patient has completed his antibiotic therapy 4-patient did have candidemia source is likely left chest wall PICC line which has been discontinued has been sent for the culture central line placed by electric motor repairman, blood culture repeat on 09/18/2024 positive blood culture repeat 09/22/2024 so far negative. 5patient repeat blood culture from 09/22/2024 has been negative patient is cleared to get a new PICC line with the patient is currently waiting for, also the nursing staff reported placement of a permanent dialysis catheter 6-patient remains to be afebrile white count has been normal we will continue patient on Eraxis to finish his course of therapy still waiting for sensitivity on the Diflucan for the same pathogen Dictation was produced using [employer] dictation software. please excuse any grammatical, word or spelling errors. Time with Patient: Less than 30
[2024-10-01] MEDS: SODIUM CHLORIDE IV SCH (17:24)
[2024-10-01] MEDS: [UNRECOGNIZED DRUG - OTHER] IV SCH (17:24)
[2024-10-01] MEDS: SODIUM ACETATE IV SCH (17:24)
[2024-10-01 18:08] LABS: Glucose,Whole Blood 117 mg/dL (70-110)
--- NOTE | 2024-10-01 20:06 | P.PN ---
Progress Note - Text Progress Note Date: 10/01/24 Chief Complaint: Short of breath 49-year-old patient, follows with Dr. Murcia History of paraplegia, home vent at night, tracheostomy multiple admissions to the ICU for recurrent pneumonia. Patient's previous bronchial cultures been positive for Pseudomonas. He was discharged recently on IV cefepime. Also has a history of Crohn's disease with previous colectomy diverting ileostomy. History of DVT for which patient is on subcu Lovenox. Also had drug-resistant MRSA Pseudomonas. Patient currently does not have areas significant trach secretions. He has continues TPN. Has a right BKA. He does have slight movement in the right hand. Able to follow commands by nodding his head. Answering questions. He is scared by his elder son open. I was also the DPOA. August 30: Overnight patient started having more secretions through the tracheostomy. Vancomycin was added. Also blood pressure running low patient was put on Levophed drip. Otherwise sinus rhythm. Patient remains on the ventilator. Will also send off stool for C. difficile. Also patient IV cefepime. Getting TPN. August 31: ICU. Patient had positive fluid balance. Was given IV Lasix earlier. Remains on Levophed. Spiking fevers. Getting TPN. Stool negative for C. difficile. Patient is growing MDRO Pseudomonas aeruginosa. ID is ordered IV Zerbaxa. Which is currently not available. Patient's friend is visiting him in the ICU. Light trach secretion September 01: ICU. On the ventilator. FiO2 45%. PEEP of 5. Continues to have light trach secretions. Sputum cultures again growing Pseudomonas. Zerbaxa was obtained and resumed. Blood pressure running low. On Levophed. Patient's younger son at the bedside. Colostomy working fine. Has been spiking fevers. Cooling blanket. Ice packs. September 02: ICU. Ventilator FiO2 45%. PEEP of 5. Continues to have some trach secretions. IV Zerbaxa IV tobramycin. TPN lipids to continue. Also Levophed. Patient started cooling blankets since yesterday for temperatures. Along with the nurse speech therapy records were reviewed from last few admissions. Patient with multiple MBS and bedside swallow eval. No trouble with swallowing. Patient put on a chopped diet. Thin liquids. Patient did spike a fever of 101.7 earlier today. Low ionized calcium. IV gluconate given. September 03: ICU. On ventilator FiO2 45%. PEEP of 5. Mild trach secretions. Getting IV TPN lipids. IV tobramycin. Zerbaxa was substituted to Avycaz. By ID. No fever per se since yesterday. For blood pressure patient is also on Levophed and vasopressin. September 04: ICU. On ventilator FiO2 45%. PEEP of 5. Clear trach secretions. Getting IV TPN lipids. IV tobramycin. And IV Avycaz. Remains afebrile.. On Levophed and vasopressin. Awake. 09/06/2024 Patient is seen and evaluated in ICU; remains on mechanical ventilator, actually his home ventilator, with settings of volume assist-control, rate 20, tidal volume 450, FiO2 45%, PEEP of 5. - patient has been refusing blood; no ABGs to. He is getting lactated Ringer's at 50 cc an hour, TPN at 65 cc an hour. - patient remains on the same antibiotics. - Labs reviewed which reveal white count 5.21, hemoglobin 7.9, hematocrit 27.5, and platelet count 64,000. Sodium 141, potassium 3.5, chlorides 102, CO2 32, BUN 25, and creatinine 0.35. Glucose is 152. Calcium is 8. Albumin is 2.1. -Chest x-ray is largely unchanged. Critical care managing mechanical ventilation; recommending to add scopolamine patch for increased secretion -Patient remains on Avycaz and tobramycin - Continue with current TPN 09/07 Patient remains in the ICU lethargic. He is s/p tracheostomy Overnight he was more hypoxic they have to increase PEEP to 8. Also has a lot of secretions when needed for secretions suctioning to try to become apneic per Staff. Patient currently receiving Avycaz and tobramycin. on TPN also 09/08 Patient remains in the ICU awake and alert status post tracheostomy. He has contractures of both upper and lower extremities He is complaining from pain in his lungs. He is status post flexible bronchoscopy and bronchoalveolar lavage yesterday. He has previous sputum culture positive for Pseudomonas currently covered with ceftazidime and tobramycin. He is also on Lovenox 90 mg 09/09 Patient still in the ICU on mechanical ventilation via tracheostomy. PEEP is 8.0 as is yesterday Also he spiked little fever to 100.7. IV vancomycin is added to tobramycin and ceftazidime He is getting also bronchoscopy follow-up culture results 09/10 Patient feels clinically the same, he still getting breathing via mechanical ventilation through his tracheostomy with PEEP of 8. Patient feels he is required suctioning through his tracheostomy tube. He denies chest pain or pain anywhere else he can communicate by head signs and gestures. Hemodynamically stable and afebrile hemoglobin 7.4 platelet count 73 Glucose is controlled potassium 3.3 He remains on broad-spectrum antibiotic Rocephin at this time tobramycin and IV vancomycin added yesterday because he had low-grade fever. He is getting TPN. IV fluid Ringer lactate was stopped and patient was started on IV Lasix 20 mg 3 times a day continue with therapeutic dose of Lovenox as well 09/11 Patient remains in the ICU Remains on mechanical ventilation via tracheostomy He status post bronchoalveolar lavage 2 days ago, culture is growing Pseudomonas aeruginosa and corynebacterium Patient remains on broad-spectrum antibiotics with IV vancomycin, tobramycin, ceftazidime On IV Lasix also is on therapeutic dose of Lovenox 90 mg twice daily No IV fluids 09/12 Patient remains in the ICU Clinically close to what he was over the last 2 days still getting oxygen via his tracheostomy He remains on broad-spectrum antibiotic with Ceftin this time and IV vancomycin. Also he is on IV Lasix 20 mg and therapeutic dose of Lovenox. 09/13 Patient remains in the ICU on mechanical ventilation via tracheostomy Patient looks better today, he breathing better Less secretion Fentanyl patch increased 09/14. Patient seen and examined. Patient continues to be on mechanical ventilation via trach mask. Currently on TPN. Currently on IV Zerbaxa and vancomycin 09/15. Patient seen and examined.Vital signs done showed the patient overnight, heart rate 106, blood pressure 107/40, currently on ventilation. Labs reviewed showed WBC 7.27, hemoglobin 7.5, sodium 148 on potassium 4.3, BUN 23, creatinine 0.47 09/16. Patient seen and examined labs reviewed showing WBC 5.45, hemoglobin 9.6, platelet count 131, sodium 146, potassium 4.1, BUN 20, creatinine 0.47. Continue small amount of Levophed. Currently on Zerbaxa and vancomycin. Currently on TPN September 17: ICU. Patient has taken a turn for the worse today. Significant thick white secretions from the trach. Sinus rhythm. Receiving TPN. Patient is on Levophed and vasopressor. Rather high dose. FiO2 [address] of 10. [address]. Ho earlier spoke to the patient/family. Remains full code September 18: ICU. Intubated FiO2 70 PEEP of 12. Sinus rhythm. Drips include IV propofol at 50 and Levophed at 0.13. Patient is off vasopressin. Patient secretions. Family at the bedside. September 19: ICU. Intubated. FiO2 50 and a PEEP of 12. Drips include IV Levophed and propofol. Also started on Lasix drip 10 mg an hour yesterday. Secretions present. September 20: ICU. Intubated. FiO2 50 and a PEEP of 12. Hemoglobin 6.3. Secondary to blood being given. Patient been on and off Levophed. On propofol. Lipids have been held. Continues with TPN. Lasix drip was discontinued. Lovenox has been held because of low hemoglobin. Unable anemia is felt to be combination of regular blood draws and possible element element of hemolysis from all the infection. No dark stool. Family at the bedside September 21: ICU. Intubated. Received 2 units of blood yesterday. Hemoglobin 7.6 today. Per nephrology renal replacement therapy. Dialysis access placed by Dr. Cadena. Patient earlier today on Levophed. Propofol. Getting TPN. Sinus rhythm. Urine output decreased September 22: ICU. Intubated. FiO2 15 of PEEP of 12. Seen earlier today. Dialysis being started. Been on IV Levophed propofol. Sinus rhythm. TPN. Sinus rhythm. September 23: ICU. Intubated. Due for another dialysis today. Saw the patient earlier today. Remains on IV Levophed propofol. Sinus rhythm. TPN. On fentanyl patch. September 24: ICU. Intubated. FiO2 40 and PEEP of 12. Remains on IV Levophed and propofol. IV TPN. Decrease trach secretions. IV antibiotics. Was due for dialysis earlier today. September 25: ICU. Intubated. FiO2 30%. Patient getting IV Levophed and propofol. IV TPN. Dialysis today. Receiving IV antibiotics. Does opens eyes occasionally. Some commands per nursing. September 26: ICU. Intubated. FiO2 30 and a PEEP of 8. Had 2 L hemodialysis removed yesterday. Getting hemodialysis today. Aiming for 2 to 3 L. Patient is on propofol. Currently Levophed on hold. Getting TPN. Patient is actually awake and following commands. Sinus rhythm. September 27: ICU. Intubated. FiO2 39 PEEP of 8. No dialysis today. Remains on IV Levophed propofol. TPN. There is a bedside. Patient asked me how is he doing. Had a lengthy information in terms of his guarded prognosis. Did tell him it is his choice about how he wishes to proceed. He needs to decide between treatment benefits versus in the suffering because of that entails from treatment and his recurrent infections etc. Especially in the context of decreased activity. Kidney failure, respiratory failure etc. September 28: ICU. Intubated. FiO2 30 and a PEEP of 8. For dialysis today. Off Levophed this morning. IV propofol. TPN. Some clear light to trach secretions. Colostomy working. Poor urine output. September 29: ICU. Intubated. IV propofol Levophed. TPN. Awake. Discussed with Dr. Holt. Prognosis very poor. Probably treatment is the point of getting futile. Patient needs about 34 more days to go to long-term ventilator setting. September 30: ICU. Intubated. IV propofol. Currently off Levophed. TPN. Getting dialysis today. Awake. IV antifungal. Given a unit of blood for hemoglobin of 6.9 October 01: ICU. Intubated. IV propofol. Remains on Levophed. TPN dose adjusted. Dialysis. IV aniedulefungin. Eyes open. Vent. FiO2 30%. PEEP 5 Active Medications Albuterol/Ipratropium (Ipratropium-Albuterol 3 Ml Neb) 3 ml INHALATION RT-Q4H PRN PRN Reason: shortness of breath Last Admin: 10/01/24 15:34 Dose: 3 ml Artificial Tears (Artificial Tears-Hypromellose Drops 15 Ml Btl) 1 drops BOTH EYES QID PRN PRN Reason: Dry Eye(s) Last Admin: 09/04/24 12:52 Dose: 1 drops Chlorhexidine Gluconate (Chlorhexidine Gluconate 15 Ml Cup) 15 ml MUCOUS MEM BID [facility] Last Admin: 10/01/24 08:46 Dose: Not Given Darbepoetin Andry (Darbepoetin Andry 40 Mcg/0.4 Ml Syringe) 40 mcg SQ Q7D [facility] Last Admin: 10/01/24 11:38 Dose: 40 mcg Dextrose/Water (Dextrose 50% Syringe 50 Ml) 25 ml IVP PER PROTOCOL PRN; Protocol PRN Reason: Hypoglycemia Dextrose/Water (Dextrose 50% Syringe 50 Ml) 50 ml IVP PER PROTOCOL PRN; Protocol PRN Reason: Hypoglycemia Fentanyl (Fentanyl 100mcg/Hr Patch) 1 patch TRANSDERM Q72H ANNIE; Protocol Last Admin: 10/01/24 11:38 Dose: 1 patch Heparin Sodium (Porcine) (Heparin Sodium,Porcine 5,000 Unit/Ml 1 Ml Vial) 5,000 unit SQ Q8HR [facility] Last Admin: 10/01/24 16:45 Dose: 5,000 unit Hydrocortisone Sodium Succinate (Hydrocortisone Succinate 100 Mg/2 Ml Vial) 50 mg IV Q12HR [facility] Last Admin: 10/01/24 08:47 Dose: 50 mg Hydromorphone HCl (Hydromorphone 1 Mg/Ml 1 Ml Syringe) 1 mg IVP Q3HR PRN PRN Reason: Moderate Pain (Scale 4 to 6) Last Admin: 10/01/24 16:45 Dose: 1 mg Anidulafungin 100 mg/ Sodium (Chloride) 130 mls @ 84 mls/hr IVPB DAILY [facility]; Protocol Last Admin: 10/01/24 08:48 Dose: 84 mls/hr Propofol 1,000 mg/ IV Solution 100 mls @ 32.34 mls/hr IV .Q3H6M ANNIE; Protocol Last Admin: 10/01/24 16:38 Dose: 10 mcg/kg/min, 6.468 mls/hr Norepinephrine Bitartrate 8 mg (/ Sodium Chloride) 258 mls @ 6.513 mls/hr IV .Q24H [facility]; Protocol Last Admin: 10/01/24 08:46 Dose: Not Given Sodium Acetate 40 meq/ Sodium Chloride 60 meq/ Calcium Gluconate 0.5 gm/ Potassium Chloride 30 meq/ Magnesium Sulfate 0.5 gm/ Amino Acids/Dextrose 1,056 mls @ 85 mls/hr IV .BY DURATION [facility] Last Admin: 10/01/24 17:24 Dose: 85 mls/hr Parenteral Vitamin Supplement 10 ml/ Zinc/Copper/Manganese/Selenium 1 ml/ Sodium Acetate 40 meq/ Sodium Chloride 60 meq / Calcium Gluconate 0.5 gm/Potassium Chloride 30 meq/Magnesium Sulfate 0.5 gm/Amino Acids/Dextrose 1,067 mls @ 85 mls/hr IV .BY DURATION [facility] Insulin Human Lispro (Insulin Lispro (Humalog) 100 Unit/Ml 10 Ml Vl) 0 unit SQ Q6HR ANNIE; Protocol Last Admin: 10/01/24 18:07 Dose: Not Given Lorazepam (Lorazepam 1 Mg/0.5 Ml Vial) 0.5 mg IV Q6HR PRN PRN Reason: Anxiety Last Admin: 09/15/24 18:26 Dose: 0.5 mg Miscellaneous Information (Pneumonia Protocol Utilized 1 Each Mis) 1 each PO ONCE PRN PRN Reason: Per Protocol Miscellaneous Information (Potassium Replacement Protocol 1 Each [facility]) 1 each MISCELLANE DAILY PRN; Protocol PRN Reason: Per Protocol Miscellaneous Information (Magnesium Replacement Protocol 1 Each [facility] [place]) 1 each MISCELLANE DAILY PRN; Protocol PRN Reason: Per Protocol Naloxone HCl (Naloxone 0.4 Mg/Ml 1 Ml Vial) 0.2 mg IV Q2M PRN PRN Reason: Opioid Reversal Nystatin (Nystatin 100,000 Unit/Gm Powd 15 Gm) 1 applic TOPICAL BID ANNIE; Protocol Last Admin: 10/01/24 08:45 Dose: 1 applic Ondansetron HCl (Ondansetron 4 Mg/2 Ml Vial) 4 mg IVP Q6HR PRN PRN Reason: Nausea And Vomiting Last Admin: 09/01/24 19:41 Dose: 4 mg Pantoprazole Sodium (Pantoprazole 40 Mg/10 Ml Vial) 40 mg IV DAILY ANNIE Last Admin: 10/01/24 08:47 Dose: 40 mg Petrolatum (Zinc Oxide Paste (Z-Guard) 1 Applic) 1 applic TOPICAL BID PRN; Protocol PRN Reason: Wound Healing Social history: Patient started smoking at the age of [age] 1 pack a day stopped in 2017. Nonambulatory. Is cared by his son over. Who is also the [facility] Physical examination: VITAL SIGNS: Afebrile, 60, 24, 1 , 95% on FiO2 30% GENERAL:, Eyes open EYES: Pupils equal. Conjunctiva loan l. HEENT: External appearance of nose and ears normal, oral cavity dry NECK: JVD unable to assess; masses not palpable. Tracheostomy HEART: First and second heart sounds are normal; no edema. LUNGS: Respiratory rate increased, decreased breath sounds, some crackles ABDOMEN: Soft, nontender, liver spleen not palpable, no masses palpable. Double barrel ostomy. PSYCH: Following simple commands MUSCULOSKELETAL: Right BKA. Left foot drop. Left hand contracture. Right hand also with contracture but able to have some movements NEUROLOGICAL: Cranial nerves grossly intact; no facial asymmetry, slight movement in the right arm. L INVESTIGATIONS, reviewed in the clinical context: October 01: White count 6.4 hemoglobin 7.6 potassium 4.1 creatinine 1.31 September 30: Hemoglobin 6.9 September 29: Hemoglobin 7 white count 5.2 potassium 3.6 creatinine 1.11 September 28: White count 6.0 hemoglobin 7.2 pH 7.57 bicarb 29 BUN 28 creatinine 1.40 September 27: White count 6.9 hemoglobin 7.8 potassium 3.4 creatinine 0.87 September 26: White count 7.3 hemoglobin 7.5 platelets 204 potassium 3.4 creatinine 0.87 September 25: White count 7.4 hemoglobin 7.6 platelets 194 potassium 3.5 creatinine 1.06 September 24: White count 6.6 hemoglobin 7 platelets 158 potassium 4 BUN 58 creatinine 1.52 phosphorus 6.2 th: White count 9.0 hemoglobin 7.7 platelets 155 potassium 4.5 creatinine 1.69 September 22: White count 7.4 hemoglobin 7.3 platelets 114 potassium 5.4 BUN 110 creatinine 1.79 September 18: White count 14.9 hemoglobin 7.6 ABG show pH of 7.2PCO2 of 68P O2 was 77 potassium was 6.1 repeat 5.2 creatinine 0.82 September 17: White count 20 hemoglobin 8.5 platelets 199 potassium 4.2 BUN 25 creatinine 0.4. ABG: pH 7.17 pCO2 79 PO277. September 02: White count 3.6 hemoglobin 9.7 platelets 130 potassium 3.9 BUN 23 creatinine 0.36 ionized calcium 4.3 TSH 2.7 Sputum culture: Pseudomonas aeruginosa: Sensitive to Zosyn, tobramycin, ceftazidime Sputum culture: Pseudomonas aeruginosa August 30: White count 3.5 hemoglobin 10.0 platelets 133 potassium 3.5 creatinine 0.36 August 29, 2024: White count 6.2 hemoglobin 12.3 platelets 216 sodium 128 potassium 3.1 BUN 50 creatinine 0.46 lactic acid 2.1 calcium 10.8 phosphorus 3.0 troponin I 0.016 UA: Negative for nitrite Influenza type A, type B, RSV, SARS-CoV-2: Not detected EKG tracing personally reviewed by me-normal sinus rhythm Chest x-ray film personally reviewed by me-right basilar infiltrate Previous labs: Sputum culture July 20, 2024: Pseudomonas aeruginosa Assessment plan: - basal pneumonia. Previous admission sputum was positive for Pseudomonas aeruginosa-:: Has received different antibiotics. Completed course of antibiotic Being followed by pulmonary, and ID - Candidemia likely source left chest wall PICC line that has been discontinued. And repeat blood cultures on September 22 negative. Line changes are being followed by ID IV antifungal - Fluid overload Had received Lasix drip - Acute kidney injury from ATN from septic shock. Also consider vancomycin toxicity. Oliguric. Volume overload. Dialysis catheter placed by Dr. Cadena-September 21. First dialysis was on September 22.-Has been getting dialysis per nephrology - Metabolic alkalosis - Septic shock: Levophed has been on and off - Acute on chronic hypoxic and hypercapnic respiratory failure, vent dependent at night at home: Slow to respond On ventilator support. Propofol - Tracheostomy with trach collar -Acute normocytic anemia of chronic disease and hospital-acquired anemia from blood draws and possible hemolysis from infection Today received 6 units of blood - Thrombocytopenia likely from sepsis Follow - Right below-knee amputation - Chronic quadriparesis. Including left foot drop. Left arm contracture. Some right hand contracture. Some movement in the right arm - Crohn's disease with double barrel ostomy bag in place since 09/2021 - TPN and lipids Lipids have been held during propofol - Full code - DPOA, son BECKY Continue current treatment plan. Past Medical History Past Medical History: CVA/TIA, Deep Vein Thrombosis (DVT), Pneumonia Additional Past Medical History / Comment(s): Hx CVA in 2012, DVT R arm, Crohns. colostomy Bag placed in 09/2021. History of Any Multi-Drug Resistant Organisms: MRSA, Other MDRO Date of last positivie culture/infection: 07/20/24-Other MDRO; 12/14/23-MRSA MDRO Source:: Other MDRO - sputum, BAL; MRSA- nasal Past Surgical History: Bowel Resection, Cholecystectomy, Orthopedic Surgery Additional Past Surgical History / Comment(s): R BKA, trach with chronic home vent Past Anesthesia/Blood Transfusion Reactions: No Reported Reaction Additional Past Anesthesia/Blood Transfusion Reaction / Comment(s): recalled from previous admission Smoking Status: Never smoker
[2024-10-01 23:14] LABS: Glucose,Whole Blood 152 mg/dL (70-110)
[2024-10-02 03:45] LABS: HCT 24.1 % (39.6-50.0); HGB 7.3 g/dL (13.0-17.0); MCH 26.9 pg (27.0-32.0); MCHC 30.3 g/dL (32.0-37.0); MCV 88.9 fL (80.0-97.0); Platelet Count 192 10*3/uL (140-440); RBC 2.71 10*6/uL (4.40-5.60); RDW 20.6 % (11.5-14.5); WBC 5.55 10*3/uL (4.50-10.00)
[2024-10-02 04:26] LABS: African American GFR (CKD) 47 (>60 ml/min/1.73 sqM); Anion Gap 9 mmol/L; Blood Urea Nitrogen 50 mg/dL (9-20); Calcium 9.0 mg/dL (8.4-10.2); Carbon Dioxide 27 mmol/L (22-30); Chloride 97 mmol/L (98-107); Glucose 144 mg/dL (74-99); Magnesium 2.2 mg/dL (1.6-2.3); Non-African American GFR(CKD) 41 (>60 ml/min/1.73 sqM); Potassium 4.6 mmol/L (3.5-5.1); Sodium 133 mmol/L (137-145)
[2024-10-02 05:10] LABS: Glucose,Whole Blood 117 mg/dL (70-110)
--- NOTE | 2024-10-02 08:28 | XR ---
EXAMINATION TYPE: XR chest 1V portable DATE OF EXAM: 10/02/2024 4:33 AM COMPARISON: 10/01/2024 CLINICAL INDICATION: Male, 49 years old with history of Mechanical ventilation, , FINDINGS: Left sided double lumen hemodialysis catheter with tips in the right atrium. Patient is rotated towar ds the left and oblique towards the right. Tracheostomy cannula present. The left PICC tip is obscure d by the overlying hemodialysis catheter. Heart mildly enlarged. Diffuse interstitial and hazy opacit ies persist without significant change. Clinical clips base of the right neck. IMPRESSION: Portable exam further limited by patient positioning. Diffuse interstitial and hazy airspace opacitie s persist. [facility], Workstation: [facility], 10/02/2024 8:25 AM
--- NOTE | 2024-10-02 10:18 | P.PN ---
Subjective Patient is seen in follow-up for acute kidney injury, hemodialysis dependent. Started on hemodialysis September 22, 2024. Receiving TPN. Off vasopressors. Tolerating dialysis well. Vital signs are stable. General: Awake on vent. HEENT: Tracheostomy noted. LUNGS: Scattered rhonchi. HEART: Rate and Rhythm are regular. ABDOMEN: Ostomy noted. EXTREMITITES: 2+ edema left lower extremity. Right BKA. Objective - Vital Signs Vital signs: Vital Signs Temp 98.1 F 10/02/24 04:00 Pulse 76 10/02/24 10:00 Resp 26 H 10/02/24 10:00 BP 149/96 10/02/24 10:00 Pulse Ox 95 10/02/24 10:00 FiO2 30 10/02/24 08:00 Intake & Output 10/01/24 10/02/24 10/02/24 18:59 06:59 18:59 Intake Total 1878.68 1149.903 692 Output Total 1150 825 10 Balance 728.68 324.903 682 Weight 92.8 kg 92 kg Intake: IV 1224 1078 692 0.9 KVO 130 110 40 Anidulafungin 100 mg In 100 300 Sodium Chloride 0.9% 100 ml @ 84 mls/hr IVPB DAILY ANNIE Rx#:[id number] Pressure Bag 39 33 12 TPN 955 935 340 Intake, IV Titration 654.68 71.903 Amount Mvi, Adult No.4 with Vit 566.5 K 10 ml Trace (Conc-1Ml/ Dose) 1 ml Sodium Acetate 80 meq Sodium Chloride 4Meq/ml Vial 56 meq Calcium Gluconate 0.5 gm Potassium Chloride 34 meq Magnesium Sulfate gm 0. 75 gm In Amino Acids 5 %/ Dextrose 20 % 1,000 ml @ 55 mls/hr IV .[id number] ANNIE Rx#:[id number] propofoL 1,000 mg In 88.18 71.903 Empty Bag 1 bag @ 50 MCG/ KG/MIN 32.34 mls/hr IV . Q3H6M ANNIE Rx#:[id number] Output: Urine 50 25 10 Stool 1100 800 Other: Voiding Method Indwelling Catheter Indwelling Catheter Indwelling Catheter ABP, PAP, CO, CI - Last Documented Arterial Blood Pressure 61/50 - Labs CBC & Chem 7: 10/02/24 03:23 10/02/24 03:23 Labs: Abnormal Lab Results - Last 24 Hours (Table) 10/01/24 10/01/24 10/01/24 Range/Units 12:17 18:07 23:11 RBC (4.40-5.60) 10*6/uL Hgb (13.0-17.0) g/dL Hct (39.6-50.0) % MCH (27.0-32.0) pg MCHC (32.0-37.0) g/dL Sodium (137-145) mmol/L Chloride (98-107) mmol/L BUN (9-20) mg/dL Creatinine (0.66-1.25) mg/dL Glucose (74-99) mg/dL POC Glucose (mg/dL) 114 H 117 H 152 H (70-110) mg/dL Phosphorus (2.5-4.5) mg/dL 10/02/24 10/02/24 10/02/24 Range/Units 03:23 03:23 05:09 RBC 2.71 L (4.40-5.60) 10*6/uL Hgb 7.3 L (13.0-17.0) g/dL Hct 24.1 L (39.6-50.0) % MCH 26.9 L (27.0-32.0) pg MCHC 30.3 L (32.0-37.0) g/dL Sodium 133 L (137-145) mmol/L Chloride 97 L (98-107) mmol/L BUN 50 H (9-20) mg/dL Creatinine 1.89 H (0.66-1.25) mg/dL Glucose 144 H (74-99) mg/dL POC Glucose (mg/dL) 117 H (70-110) mg/dL Phosphorus 2.3 L (2.5-4.5) mg/dL Assessment and Plan Plan: Assessment: 1. Acute kidney injury secondary to ATN secondary to septic shock and vancomycin toxicity. Oliguric. Started on hemodialysis October 02, 2024 via femoral catheter. Now has permacath. 2. Septic shock secondary to pneumonia and fungemia. Currently off Levophed. 3. Acute blood loss anemia status post blood transfusions this admission. On Aranesp. 4. Volume overload. Better with UF. 5. Chronic hypoxic and hypercapnic respiratory failure, home ventilator dependent. 6. History of cardiac arrest. 8. Status post right BKA. Plan: Currently seen while undergoing hemodialysis. TPN per surgery. No response to IV Lasix given September 30, 2024. Continue to monitor for renal recovery. Phosphorus level 2.5 dated October 01, 2024.
[2024-10-02 11:26] LABS: Glucose,Whole Blood 129 mg/dL (70-110)
[2024-10-02] MEDS: SODIUM PHOSPHATE 15 MMOL in DEXTROSE 5% IN WATER 250 ML IVPB ONE (11:31)
--- NOTE | 2024-10-02 13:06 | P.PN ---
Subjective Progress Note Date: 10/02/24 This is a 49-year-old white male familiar to my service, history of paraplegia, home vent dependent, history of tracheostomy, patient had multiple admissions to the ICU for recurrent episodes of pneumonia and respiratory failure requiring ventilatory support. On his last admission patient was eventually discharged home on a home ventilator, and this was back on 08/04/2024. Patient was discharged home with a PICC line, patient was in the ER yesterday on 08/28 for abnormal labs mostly low potassium and low sodium discharged home however he came back today complaining of shortness of breath, has been ventilator dependent all along. Chest x-ray showed basically bibasilar opacities/atelectasis, doubt pneumonia, the findings in the left lower lobe are chronic. Patient did have previous history of pneumonia involving the left lower lobe and he had multiple bronchoscopies in the past. Bronchial cultures and sputum cultures have been positive in the past for mostly Pseudomonas aeruginosa. Patient was seen in the ER today, and he is already on cefepime for empiric coverage for potential left lower lobe pneumonia, patient had abnormal electrolytes with relatively low sodium low potassium, no leukocytosis, normal renal profile, blood pressure was soft, and he was given fluid boluses. Lactic acid was 2.1, D-dimer is normal, patient was admitted, and this consult was initiated. 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 Patient was seen today on 08/30/2024, patient continues to have intermittent episodes of fever with Tmax of 102, patient required norepinephrine and he remains on norepinephrine at 0.04 mcg/kg/min remains on LR at 130 cc/h remains on his home ventilator at tidal volume of 450 rate of 20 FiO2 45% and PEEP of 5. Seems comfortable, not in distress, his WBC is 3.5 hemoglobin 10.0 electrolytes are normal renal profile is normal potassium is borderline low. Patient remains on cefepime, vancomycin was added because of his previous history of MRSA, and is on cefepime for previous history of pseudomonal infection and now that the patient may be septic it is more of a reason to broaden the spectrum of antibiotics coverage with cefepime and vancomycin. Sputum cultures and blood cultures are pending. Patient does have history of pseudomonal and history of MRSA infections, and I discontinued his Zithromax today replace Zithromax with vancomycin. Viral screen is negative Legionella antigen is negative. Chest x- ray is relatively unchanged continues to show bibasilar opacities atelectasi s/pneumonia. Progress note dated August 31, 2024. The patient is seen today in room 252. The patient was admitted a couple days ago, to the intensive care unit. The patient is currently on mechanical ventilator, actually his home ventilator. He is on volume assist-control, rate 20, tidal volume 450, FiO2 45% PEEP of 5. The patient is getting lactated Ringer's at 130 cc an hour, TPN at 91 cc an hour, norepinephrine at 8 mcg/min. Doppler of the left upper extremity was negative. He continues on Zerbaxa, and vancomycin. We will check a procalcitonin level. Cultures thus far are negative. He does have a previous history of methicillin-resistant Staph aureus infection, and pseudomonal infections. White count was 2.21, hemoglobin 9.3, hematocrit 32, platelet count 1 61,000. D-dimer was 5.78. Sodium 132, potassium 4.3, chlorides 106, CO2 21, BUN 18, creatinine 0.28. Glucose was 141. Calcium 7.8. C. difficile study was negative. Urine Legionella antigen was negative. Microbiologic studies are currently negative. Chest x-ray shows bibasilar airspace opacities, possibly consistent with pneumonia. 09/01/24 - The patient is seen today in room 252. Admitted to the hospital and the intensive care unit on 08/29/2024. The patient is currently on mechanical ventilator, his one from home. He is on volume assist control, rate of 20, tidal volume of 450, FiO2 45% and PEEP of 5. He currently has LR running at 50 cc/h, TPN at 91 cc/h, Zerbaxa and tobramycin. Chest Xray done this morning showed stable airspace opacities. Cultures are positive for pseudomonas aeruginosa, awaiting sensitivities. WBCs 2.69, Hgb 8.9, Hct 31.5, PLT 153, Na 135, K 3.4, Cl 109, HCO3 19, BUN 22, Cr 0.34, Phos 2.4. 09/02/24 - He is seen today in room 252. Admitted to the hospital and ICU on 08/29/24. He continues on mechanical ventilator, his one from home. He remaines on volume assist control, rate of 20, tidal volume of 450, FiO2 45% and PEEP of 5. He continues to have LR running at 50 cc/h, TPN at 91 cc/h, norepinephrine at 0.13 mcg/kg/min, Zebraxa and Tobramycin. Chest XRay this morning showed stable airspace opacities. Continue to await sensitivity of pseudomonas sputum culture. Lab work shows WBCs 3.64, Hgb 9.7, Hct 33.5, PLT 130, Na 133, K 3.9, bicarb 21, BUN 23, Cr 0.36, Ca 7.8, Mg 2.4, Albumin 2.3. 09/03/24 - He is seen in room 252. Admitted to the hospital and ICU on 08/29/24. He continues on mechanical ventilator, his one from home. He remaines on volume assist control, rate of 20, tidal volume of 450, FiO2 45% and PEEP of 5. He continues to have LR running at 50 cc/h, TPN at 91 cc/h, norepinephrine at 0.24 mcg/kg/min, Avycaz and Tobramycin. Zebraxa was discontinued as there was no reported sensitivity to it. Lab work shows WBCs 9.40, Hgb 8.8, Hct 30.6, PLT 100, Na 130, K 3.6, bicarb 23, BUN 25, Cr 0.51, Ca 7.8, Ionized Ca 4.6, Phos 3.3, Mg 2.1, TSH 2.710 and random cortisol 13.1. 09/04/24 - He is seen in room 252. Admitted to the hospital and ICU on 08/29/24. He continues on mechanical ventilator, his one from home. He remaines on volume assist control, rate of 20, tidal volume of 450, FiO2 45% and PEEP of 5. He continues to have LR running at 50 cc/h, TPN at 91 cc/h, norepinephrine at 0.24 mcg/kg/min, Avycaz and Tobramycin. Lab work shows sodium 133, potassium 3.5, bicarb 24, BUN 27, creatinine 0.47, calcium 7.9, ionized calcium 4.6, magnesium 1.9, phosphorus 3.0, total bilirubin 1.7, AST 57, ALT 45, alkaline phosphatase 99. Progress note dated September 05, 2024. 49-year-old male well-known to our service. He is seen today in room 252. He continues on volume assist-control, rate 20, tidal 450, FiO2 45%, PEEP of 5. The patient has refused blood gases. Currently, he is getting TPN at 65 cc an hour, norepinephrine at 1 mcg/min, LR at 50 cc/h. Clinically, the patient is doing well. His chest x-ray remains about the same. Yesterday he was on a hig her dose of norepinephrine, and also was on vasopressin. Both have been weaned off. Current labs include a sodium 136, potassium 4.1, chlorides 101, CO2 28, BUN 30, creatinine 0.37. Glucose 153. Albumin is 2.2. Previous sputum, from August 29 with positive for Pseudomonas aeruginosa. Chest x-ray is largely unchanged. Progress note dated September 06, 2024. 49-year-old male again seen today in the intensive care unit, room 252. He remains on mechanical ventilator, actually his home ventilator, with settings of volume assist-control, rate 20, tidal volume 450, FiO2 45%, PEEP of 5. No blood gases today. The patient has been refusing. He is getting lactated Ringer's at 50 cc an hour, TPN at 65 cc an hour. He continues on the same antibiotics. White count 5.21, hemoglobin 7.9, hematocrit 27.5, and platelet count 64,000. Sodium 141, potassium 3.5, chlorides 102, CO2 32, BUN 25, and creatinine 0.35. Glucose is 152. Calcium is 8. Albumin is 2.1. Chest x-ray is largely unchanged. 09/07/2024, the patient remains on a mechanical ventilator. The patient is having excessive respiratory secretions. Attempts to suction this patient has failed as the secretions are quite thick and the patient has had episodes of bradycardia while suctioning. Remains on TPN at 65 cc an hour and lactated Ringer at 50 cc an hour. Remains on assist-control mode mechanical ventilation at rate of 20, tidal volume of 450, FiO2 of 100% with a PEEP of 8. Patient has refused to have an arterial line. The patient has refused blood gases. Urine output is adequate. No hypotension. He has a double-lumen catheter in his left chest and the left forearm IV line.He is afebrile. He continues to have multidrug-resistant Pseudomonas in his sputum. The patient remains on ceftazidime/avibactam per IDs recommendations. He is also on IV tobramycin. Remains on stress dose hydrocortisone. Blood work shows a white cell count of 6.9, hemoglobin 7.9 and a platelet count of 90. BUN is 24 with a creatinine of 0.33. Sodium is 143 and a potassium level of 3.7. Bicarb level is at 33. Output from the ileostomy bag is high and the net fluid balance is +1.2 L over the past 24 hours. Airway pressures on the mechanical ventilator are elevated with an elevated peak airway pressure around 36 consistent with excessive respiratory secretions and mucous plugs. Chest x-ray shows atelectatic changes infiltrates in lung bases along with some scattered hazy bilateral pulmonary infiltrates. 09/08/2024, the patient is being seen for a follow-up. On today's evaluation, the patient is awake on no sedation. His chest x-ray showing worsening bilateral pulmonary filtrates. Running low-grade fever. A bronchoscopy in the BAL was done yesterday and the results are still pending for now. He remains on assist-control mode at rate of 20, tidal volume of 450, FiO2 of 60% with a PEEP of 8. He remains on lactated Ringer at rate of 50 cc an hour and TPN at rate of 65 cc an hour. He remains on IV Lasix. He remains on ceftazidime/avibactam regarding his multidrug-resistant Pseudomonas. He is also on tobramycin. The white cell count is 6 with a hemoglobin 7.7 and platelet count of 77. Sodium is at 143, BUN 24 with a creatinine of 0.2. Serum bicarb is at 34. LFTs are within normal limits. The patient had no blood cares for today. He has refused blood gases. On a separate note, cardiology was consulted regarding the episodes of bradycardia that the patient is encountering. Upon sectioning, the patient is having episodes of cardiac block, likely third-degree AV block that last around 5 to 8 seconds. Patient was taken off the scopolamine patch. On 09/09/2024, the patient remains on a mechanical ventilator. He is complaining of shortness of breath even while being on the mechanical ventilator. Repeat chest x-ray was done today and the patient has developed diffuse infiltrates bilaterally greater in the lung bases and there is interval worsening in the chest x-ray findings. The bronchoalveolar lavage that was obtained earlier on 09/07/2024 showed Pseudomonas aeruginosa and corynebacterium. The patient remains on ceftazidime avibactam and tobramycin. Vancomycin was also added. He is running a low-grade fever with a Tmax of 100.7. He remains on assist-control mode mechanical ventilation at rate of 20, tidal volume of 450, FiO2 of 60% with a PEEP of 8. The patient did not have a blood gas today. Fluid balance is +2.6 L over the past 24 hours. He is currently on IV Lasix 20 mg IV push every 8 hours. The patient is also on TPN at rate of 65 cc an hour and lactated Ringer at rate of 50 cc an hour. The white cell count is 4.6 with a heme of 7.3 and a platelet count of 72. Sodium is at 144, bicarb is at 34, BUN 22 with a creatinine of 0.38. Chloride is 103. Calcium levels at 7.4, phosphorus 3.6, LFTs are normal. Albumin levels at 2.1. Arousable, able to communicate. No significant cardiac arrhythmias over the past 24 hours. 09/10/2024, patient is awake and alert and communicating. Continues to have on and off episodes of shortness of breath while being on a mechanical ventilator. Oxygenation is borderline and the patient's pulse ox remains low. Unable to obtain any blood gases as the patient has declined arterial blood draws. He is on assist-control mode rate of 20, tidal volume of 450, FiO2 of 70% with a PEEP of 10. Remains on TPN at rate of 35 cc an hour and lactated Ringer at rate of 50 cc an hour. Fluid balance is +2.6 L over the past 24 hours.the white cell count is 6.3, hemoglobin is at 7.4, platelet count is a 73 and the patient remains on therapeutic dose of Lovenox. The patient's sodium levels at 143, K is at 3.3, bicarb is at 40 with a BUN of 21 and a creatinine of 0.8. Blood sugar is 140. The most recent lavage from the right lower lobe was positive for Pseudomonas aeruginosa and corynebacterium. The patient remains on a combination of ceftazidime antibacterial combination, tobramycin and IV vancomycin. Output from ileostomy is in order of 800 cc over the past 8 hours. Remains on IV Lasix. Chest x-ray is unchanged and it shows bilateral pulmonary infiltrates, diffuse increased interstitial lung markings, lines and catheters are in place, tracheostomy tube is in place. 09/11/2024, the patient is stable, awake and alert and communicating. Remains on TPN for nutritional support with rate of 75 cc an hour. Remains on the same mechanical ventilator settings and the patient remains on assist-control mode at rate of 20, tidal volume of 450, FiO2 of 60% with a PEEP of 8. Fluid balance is -50 cc over the past 24 hours and the patient remains on IV Lasix 20 mg every 8 hours. The biotic coverage remains unchanged and the patient remains on a combination of ceftazidime IV Bactrim, tobramycin and vancomycin. The white cell count is at 4.7 with a hemoglobin of 7.1 and a platelet count of 89. BUN is 20 with a creatinine of 0.25. Sodium levels at 142. Serum iron levels at 16. Vancomycin trough is at 17. Follow-up chest x-ray from today shows stable bilateral pulmonary filtrates and pleural effusions bilaterally. Tracheostomy tube remains in good location. The patient continues to have high output through the ileostomy. Currently afebrile. No cardiac arrhythmias have been noted. 09/12/2024, patient is resting comfortably in bed. Remains on a mechanical ventilator. Unable to wean. Chest x-ray still showing bilateral pulmonary filtrates consistent with pneumonia. The patient is on assist-control mode at rate of 20, tidal volume of 450, FiO2 of 50% and a PEEP of 8. Remains negative fluid balance as the patient is being diuresed with IV Lasix. Fluid balance is -1 L over the past 24 hours. Remains on Lasix 20 mg IV push every 8 hours. Hemoglobin from this morning was 5.8. Repeat hemoglobin came back at 7.4. Platelet counts are stable. No evidence of any GI bleeding. Remains on Lovenox therapeutic dose. Remains on TPN at rate of 75 cc an hour. White cell count is at 5, platelet count is at 93, BUN is 25 with a creatinine 0.4. Sodium levels at 144 and a potassium level is at 3.6. Ileostomy still functioning. Remains on broad-spectrum antibiotics. Remains on ceftolozane/tazobactam. Remains on vancomycin. Remains on stress dose hydrocortisone. 09/13/2024, the patient is being seen for a follow-up. No change in his condition over the past 24 hours. Remains on a mechanical ventilator. Awake and alert and communicating. Started on fentanyl patch and his pain is under better control and the patient is using fentanyl patch 75 mcg every 72 hours. Remains assist-control mechanical ventilation at rate of 20, tidal volume of 450, FiO2 50% with a PEEP of 8. Chest x-ray from today shows stable bilateral pulmonary infiltrates, no significant change compared to yesterday and the tracheostomy tube remains in place. The patient continues to have multifocal airspace disease. Fluid balance is +30 cc over the past 24 hours. TPN is running at a rate of 75 cc an hour. Afebrile. Hemoglobin in this morning was at 5.8. Recheck was 6.1. The platelet count is 817. Sodium is at 148, potassium 3.2, BUN 26 with a creatinine of 0.44. Serum bicarb is at 38. The patient has a triglyceride level of 152. Remains on ceftolozane tazobactam and vancomycin. On 09/28/2024, the patient is being seen for a follow-up. The patient remains ventilator dependent. This morning, the patient remains on a assist-control mode of mechanical ventilation at rate of 36, tidal volume of 400, FiO2 30% with a PEEP of 5. The blood gases from today showed pH of 7.57 with a PCO2 of 30 and PO2 of 70. Chest x-ray shows ongoing diffuse interstitial infiltrates and wor sening airspace disease in the right lung base and the patient is having limited amount of respiratory secretions. Currently on propofol running at 20 mcg/kg/min. 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 Blood culture was positive on 09/15/2024 and 09/18/2024 and the patient is currently on Eraxis. Repeat blood culture on 09/22/2024 was negative. ID is on the case. Lines were all removed and the patient has a right subclavian triple-lumen catheter: Inserted on 09/17/2024. The patient is currently on no pressors. The patient also has developed an acute kidney injury. The patient was started on hemodialysis on 09/22/2024 and the patient has a left femoral triple-lumen catheter in place. Last hemodialysis session was on 09/26/2024 and another hemodialysis session is to follow this morning. He remains on TPN running at 33 cc an hour. Arousable. Sedated. Blood work from today shows a BUN of 28 with a creatinine of 1.4. Sodium is at 129 and potassium is at 4.4. WBC count is 6 with a heme of 7.1 platelet count of 206. Afebrile for now. Ileostomy continues to show increased output. On 09/29/2024, the patient is being seen for a follow-up. On today's evaluation, the patient is arousable and awake and following commands. He is on propofol running at 20 mcg/kg/min. Remains on a mechanical ventilator and the patient is calm and comfortable with limited respiratory secretions. He is on assist- control at rate of 24, tidal volume of 400, FiO2 of 30% with a PEEP of 8. pH is at 7.44 with a REM652 and PO2 of 80. Chest x-ray remains unchanged. Tracheostomy tube is in location. Remains on TPN for nutritional support arriving at 55 cc an hour. Remains on low-dose norepinephrine running at 0.01 mcg/kg/min. The patient underwent hemodialysis on 09/28/2024 with a total of 2 L of ultrafiltration. No urine output for now. Lab work is stable. The white seconds at 5.2 with a hemoglobin of 7 and a platelet count of 206. Electrolytes all within normal limits. Potassium levels are 3.6. Sodium is 134. BUN is 20 with a creatinine of 1.1. He remains on IV Eraxis. Most recent blood cultures been negative. Afebrile. 09/30/2024, the patient is being seen for a follow-up. This morning, the patient is calm and comfortable and the patient remains on propofol running at 10 mcg/kg/min. Patient is on no pressors. The patient has a left femoral hemodialysis catheter in place and his last hemodialysis session was on 09/26/2024 and the patient will undergo another session today. Urine output is in the order of 0 to 5 cc an hour. The patient will be also receiving a dose of Lasix 80 mg IV push per nephrology following hemodialysis. The patient is succe ssful insertion of the PICC line in the left upper extremity. Morning hemoglobin was 6.9 and the patient was given a unit of packed RBC. No evidence of any acute bleeding. Remains on a mechanical ventilator on assist-control mode rate of 24, tidal volume of 400, FiO2 30% with a PEEP of 6. Blood gas showed a pH of 7.45 with a [id number] and PO2 of 94. The chest x-ray shows no significant interval change. Afebrile. Hemodynamically stable. Ileostomy is functional. TPN is running at a rate of 55 cc an hour. Rest of the labs noted in the patient's hemoglobin posttransfusion came back at 8.2. The white cell count 6.6. Platelet count is at 220. BUN 36 with a creatinine of 1.55 and the sodium is 132 and a potassium level is at 4.1. On 10/01/2024, the patient is being seen for a follow-up. Condition is essentially unchanged compared to yesterday. Remains on propofol running at 10 mcg. Remains on assist-control mode of mechanical ventilation at rate of 24, tidal volume of 400, FiO2 of 30% with a PEEP of 5. pH is 7.45 with a PCO2 of 45 and PO2 of 67. Repeat chest x-ray from today shows no significant interval change. Overall appearance is similar and the patient has pulm vascular congestion and edema is slightly worse on the right compared to the left with possible development of a right-sided pleural effusion. He is not producing any urine. He has not responded to IV Lasix. He is less hemodialysis session was yesterday. He remains on IV Eraxis. Follow-up blood cultures have been sent. Their white cell count is 6.4 with a hemoglobin 7.6 and platelet count of 212. BUN 27 with a creatinine of 1.3 and sodium is at 134. The patient is currently on no pressors. Afebrile. Hemodynamically stable. Ileostomy is functional. Remains on TPN at a rate of 55 cc an hour. On 10/02/2024, the patient is being seen for a follow-up. The patient resting comfortably in bed and the patient remains on propofol running at 10 mcg/kg/min. The patient is also on TPN at rate of 85 cc an hour. IV fluids are currently at KVO. Fluid balance is +1 L. Remains on mechanical ventilator on the same ventilator setting with a tidal volume of 400, rate of 24, FiO2 of 30% with a PE EP of 5. Chest x-ray remains unchanged. Remains on IV Eraxis. Follow-up blood cultures are negative. The white cell count is 5.5 with a heme of 7.3. Platelet count is 192. BUN is 50 with a creatinine of 1.89. Dialysis is being performed periodically per nephrology. Urine output remains 5 cc every couple of hours. Awake and alert and communicating.. Objective - Vital Signs Vital signs: Vital Signs Temp 98.1 F 10/02/24 04:00 Pulse 75 10/02/24 08:30 Resp 33 H 10/02/24 08:30 BP 153/65 10/02/24 08:30 Pulse Ox 96 10/02/24 08:30 FiO2 30 10/02/24 08:00 Intake & Output 10/01/24 10/02/24 10/02/24 18:59 06:59 18:59 Intake Total 1878.68 1149.903 296 Output Total 1150 825 5 Balance 728.68 324.903 291 Weight 92.8 kg 92 kg Intake: IV 1224 1078 296 0.9 KVO 130 110 20 Anidulafungin 100 mg In 100 100 Sodium Chloride 0.9% 100 ml @ 84 mls/hr IVPB DAILY ANN[facility] Rx#:[id number] Pressure Bag 39 33 6 TPN 955 935 170 Intake, IV Titration 654.68 71.903 Amount Mvi, Adult No.4 with Vit 566.5 K 10 ml Trace (Conc-1Ml/ Dose) 1 ml Sodium Acetate 80 meq Sodium Chloride 4Meq/ml Vial 56 meq Calcium Gluconate 0.5 gm Potassium Chloride 34 meq Magnesium Sulfate gm 0. 75 gm In Amino Acids 5 %/ Dextrose 20 % 1,000 ml @ 55 mls/hr IV .[id number] ANNIE Rx#:[id number] propofoL 1,000 mg In 88.18 71.903 Empty Bag 1 bag @ 50 MCG/ KG/MIN 32.34 mls/hr IV . Q3H6M [facility] Rx#:[id number] Output: Urine 50 25 5 Stool 1100 800 Other: Voiding Method Indwelling Catheter Indwelling Catheter Indwelling Catheter ABP, PAP, CO, CI - Last Documented Arterial Blood Pressure 61/50 - Exam No acute distress, currently connected to the ventilator. He has a tracheostomy tube in place. The patient has a #6 [address]iley tracheostomy tube in place. Lethargic, follows simple commands. Profoundly weak in all 4 extremities. The patient is currently on propofol for sedation. Able to communicate. HEENT examination is grossly unremarkable. Mucous membranes are moist. No oral lesions. Tracheostomy tube is in place. The patient has a right subclavian triple-lumen catheter in place Neck supple. Full range of motion. No adenopathy thyromegaly or neck vein distention. Cardiovascular examination reveals regular rhythm rate. S1-S2 normal. No S3 or S4. No discernible murmur noted. Lungs reveal clear breath sounds. Breath sounds are diminished bilaterally and scattered rhonchi heard throughout the lung craft bilaterally. Tracheostomy tube in place. Abdomen reveals an enterocutaneous fistula, normal bowel sounds. No tenderness. No masses. The patient has a left femoral dialysis catheter in place. Extremities are intact. No cyanosis clubbing and there is edema in his left lo wer extremity and upper extremities bilaterally. The patient has a below-knee amputation his right lower extremity. Skin is without rash or lesion. Neurologic examination is brief but nonfocal. He does have significant muscle atrophy, and contractures. He has a right below the knee amputation. Generalized profound weakness. Weak cough. Weak motor functions. - Labs CBC & Chem 7: 10/02/24 03:23 10/02/24 03:23 Labs: Abnormal Lab Results - Last 24 Hours (Table) 10/01/24 10/01/24 10/01/24 Range/Units 12:17 18:07 23:11 RBC (4.40-5.60) 10*6/uL Hgb (13.0-17.0) g/dL Hct (39.6-50.0) % MCH (27.0-32.0) pg MCHC (32.0-37.0) g/dL Sodium (137-145) mmol/L Chloride (98-107) mmol/L BUN (9-20) mg/dL Creatinine (0.66-1.25) mg/dL Glucose (74-99) mg/dL POC Glucose (mg/dL) 114 H 117 H 152 H (70-110) mg/dL Phosphorus (2.5-4.5) mg/dL 10/02/24 10/02/24 10/02/24 Range/Units 03:23 03:23 05:09 RBC 2.71 L (4.40-5.60) 10*6/uL Hgb 7.3 L (13.0-17.0) g/dL Hct 24.1 L (39.6-50.0) % MCH 26.9 L (27.0-32.0) pg MCHC 30.3 L (32.0-37.0) g/dL Sodium 133 L (137-145) mmol/L Chloride 97 L (98-107) mmol/L BUN 50 H (9-20) mg/dL Creatinine 1.89 H (0.66-1.25) mg/dL Glucose 144 H (74-99) mg/dL POC Glucose (mg/dL) 117 H (70-110) mg/dL Phosphorus 2.3 L (2.5-4.5) mg/dL Assessment and Plan Plan: Acute on chronic hypoxic respiratory failure. The patient remains on a mechanical ventilator. The patient has bilateral pleural effusion and bilateral pneumonia with multidrug-resistant Pseudomonas aeruginosa. The patient was initially treated with ceftazidime/tazobactam and tobramycin combination. Repeat bronchoscopy on 09/07/2024 shows a positive Pseudomonas aeruginosa and corynebacterium in the BAL collected from the right lower lobe. The patient was subsequently treated with ceftolozane /tazobactam and vancomycin. There is also development of bilateral pleural effusion and the patient also has an area of consolidation in the right lung base. The respiratory status is stable. Chest x-ray findings remain stable. No changes in his overall respiratory status Sepsis with systemic fungemia and blood culture was positive for Bella parapsilosis, currently on IV Eraxis, initial blood culture was positive on 09/15/2024 and repeat cultures from 09/18/2024 was positive for Bella. Most recent blood culture from 09/22/2024 was negative. The patient remains hemodynamically stable and the patient is afebrile. No significant leukocytosis. Repeat cultures are still pending. The patient will be completing a total of 2 weeks course of Eraxis post negative blood culture. Septic shock, recovered, currently off pressors Acute kidney injury, currently on hemodialysis, last hemodialysis session of hemodialysis was completed on 09/30/2024. Did not respond to any Lasix. History of severe tracheal stenosis, S/P tracheostomy. 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 Chronic anemia, with an acute drop in hemoglobin down to 6.8, posttransfusion with a unit of packed RBC. Hemoglobin is stable for now. History of DVT. History of CVA. History of right below-knee amputation. Previous history of asystole/cardiac arrest, 2021. History of Crohn's disease, S/P enterocutaneous fistula, diverting ileostomy. The patient remains on TPN for nutritional support. Plan: Continue ventilator support, no changes Patient is currently on no pressors Continue sedation with propofol 10 mcg/kg/min Continue IV Eraxis, to be completing a total of 2-week course following a negative blood culture. Another session of hemodialysis to be done today on 09/30/2024.hemodialysis to be completed today per nephrology Monitor hemoglobin and the patient was already transfused with a unit of packed RBC. Continues on TPN at 85 cc an hour, IV fluids or KVO continue stress dose hydrocortisone Heparin subcu for DVT prophylaxis fentanyl patch to 100 mcg on a daily basis for better pain control IV Protonix Monitor ileostomy output Nephrology for hemodialysis, urine output remains low Prognosis remain extremely poor. Prognosis remains extremely poor due to above-mentioned comorbidities. Will continue to follow and make further recommendation based on his progress. This evaluation was done at 35 minutes. Working on long-term placement in a facility with capability to undergo mechanical ventilation and hemodialysis. Time with Patient: Greater than 30
--- NOTE | 2024-10-02 15:12 | P.PN ---
Subjective Progress Note Date: 10/02/24 Principal diagnosis: Reason for follow-up is sepsis and pneumonia/candidemia Patient is a 49-year-old male with a past medical history significant for CVA TIA DVT pneumonia history of complicated Crohn's disease in this patient who did have multiple abdominal surgeries patient also have a tracheostomy has been brought to the hospital with Generalized weakness did have a fever concerning for pneumonia on today's evaluation that is 10/02/2024, the patient continues to be afebrile, the patient remains to be debated on the vent through the trach FiO2 stable at 30% patient not requiring any pressor support for the last 3 days patient is awake responds to simple question in no distress. Patient white count is 5.55 creatinine is 1.89 blood cultures repeated remains to be negative Objective - Vital Signs Vital signs: Vital Signs Temp 98.4 F 10/02/24 12:00 Pulse 81 10/02/24 12:00 Resp 21 10/02/24 12:00 BP 133/56 10/02/24 12:00 Pulse Ox 98 10/02/24 12:00 FiO2 40 10/02/24 12:00 Intake & Output 10/01/24 10/02/24 10/02/24 18:59 06:59 18:59 Intake Total 1878.68 8566.597 7844 Output Total 1150 825 30 Balance 728.68 462.333 9701 Weight 92.8 kg 92 kg Intake: IV 1224 1078 1088 0.9 KVO 130 110 60 Anidulafungin 100 mg In 100 500 Sodium Chloride 0.9% 100 ml @ 84 mls/hr IVPB DAILY ANNIE Rx#:[id number] Pressure Bag 39 33 18 TPN 955 935 510 Intake, IV Titration 654.68 71.903 Amount Mvi, Adult No.4 with Vit 566.5 K 10 ml Trace (Conc-1Ml/ Dose) 1 ml Sodium Acetate 80 meq Sodium Chloride 4Meq/ml Vial 56 meq Calcium Gluconate 0.5 gm Potassium Chloride 34 meq Magnesium Sulfate gm 0. 75 gm In Amino Acids 5 %/ Dextrose 20 % 1,000 ml @ 55 mls/hr IV .[id number] [facility] Rx#:[id number] propofoL 1,000 mg In 88.18 71.903 Empty Bag 1 bag @ 50 MCG/ KG/MIN 32.34 mls/hr IV . Q3H6M [facility] Rx#:[id number] Output: Urine 50 25 30 Stool 1100 800 Other: Voiding Method Indwelling Catheter Indwelling Catheter Indwelling Catheter ABP, PAP, CO, CI - Last Documented Arterial Blood Pressure 77/60 - Exam GENERAL DESCRIPTION: Middle-age male intubated on the vent RESPIRATORY SYSTEM: Unlabored breathing , decreased breath sounds at bases HEART: S1 S2 regular rate and rhythm , ABDOMEN: Soft , no tenderness EXTREMITIES: Swelling to the leg - Labs CBC & Chem 7: 10/02/24 03:23 10/02/24 03:23 Labs: Abnormal Lab Results - Last 24 Hours (Table) 10/01/24 10/01/24 10/02/24 Range/Units 18:07 23:11 03:23 RBC (4.40-5.60) 10*6/uL Hgb (13.0-17.0) g/dL Hct (39.6-50.0) % MCH (27.0-32.0) pg MCHC (32.0-37.0) g/dL Sodium 133 L (137-145) mmol/L Chloride 97 L (98-107) mmol/L BUN 50 H (9-20) mg/dL Creatinine 1.89 H (0.66-1.25) mg/dL Glucose 144 H (74-99) mg/dL POC Glucose (mg/dL) 117 H 152 H (70-110) mg/dL Phosphorus 2.3 L (2.5-4.5) mg/dL 10/02/24 10/02/24 10/02/24 Range/Units 03:23 05:09 11:26 RBC 2.71 L (4.40-5.60) 10*6/uL Hgb 7.3 L (13.0-17.0) g/dL Hct 24.1 L (39.6-50.0) % MCH 26.9 L (27.0-32.0) pg MCHC 30.3 L (32.0-37.0) g/dL Sodium (137-145) mmol/L Chloride (98-107) mmol/L BUN (9-20) mg/dL Creatinine (0.66-1.25) mg/dL Glucose (74-99) mg/dL POC Glucose (mg/dL) 117 H 129 H (70-110) mg/dL Phosphorus (2.5-4.5) mg/dL Assessment and Plan (1) Pneumonia Current Visit: Yes Status: Acute Code(s): J18.9 - PNEUMONIA, UNSPECIFIED ORGANISM SNOMED Code(s): 691212969 (2) Sepsis Current Visit: Yes Status: Acute Code(s): A41.9 - SEPSIS, UNSPECIFIED ORGANISM SNOMED Code(s): 11851068 (3) Candidemia Current Visit: Yes Status: Acute Code(s): B37.7 - CANDIDAL SEPSIS SNOMED Code(s): 922631410 Plan: 1patient is a hospital with sepsis in this patient who did have fever tachycardia elevated lactic acid upon meeting criteria for SIRS/sepsis source likely pneumonia 2-patient is status post bronchoscopy lavage results currently growing Pseudomonas that is resistant to Avycaz and corynebacterium, sensitivity on corynebacterium is pending 3-patient with Pseudomonas pneumonia for the patient has completed his antibiotic therapy 4-patient did have candidemia source is likely left chest wall PICC line which has been discontinued has been sent for the culture central line placed by inte nsivist, blood culture repeat on 09/18/2024 positive blood culture repeat 09/22/2024 so far negative. 5patient repeat blood culture from 09/22/2024 has been negative patient is cleared to get a new PICC line with the patient is currently waiting for, also the nursing staff reported placement of a permanent dialysis catheter 6-patient remains to be afebrile white count has been normal patient is curren tly being treated with Eraxis last day of antifungal will be 10/06/2024 hence medication has been renewed Dictation was produced using [employer] software. please excuse any grammatical, word or spelling errors.
--- NOTE | 2024-10-02 16:32 | P.PN ---
Progress Note - Text Progress Note Date: 10/02/24 Chief Complaint: Short of breath 49-year-old patient, follows with Dr. Murcia History of paraplegia, home vent at night, tracheostomy multiple admissions to the ICU for recurrent pneumonia. Patient's previous bronchial cultures been positive for Pseudomonas. He was discharged recently on IV cefepime. Also has a history of Crohn's disease with previous colectomy diverting ileostomy. History of DVT for which patient is on subcu Lovenox. Also had drug-resistant MRSA Pseudomonas. Patient currently does not have areas significant trach secretions. He has continues TPN. Has a right BKA. He does have slight movement in the right hand. Able to follow commands by nodding his head. Answering questions. He is scared by his elder son open. I was also the DPOA. August 30: Overnight patient started having more secretions through the tracheostomy. Vancomycin was added. Also blood pressure running low patient was put on Levophed drip. Otherwise sinus rhythm. Patient remains on the ventilator. Will also send off stool for C. difficile. Also patient IV cefepime. Getting TPN. August 31: ICU. Patient had positive fluid balance. Was given IV Lasix earlier. Remains on Levophed. Spiking fevers. Getting TPN. Stool negative for C. difficile. Patient is growing MDRO Pseudomonas aeruginosa. ID is ordered IV Zerbaxa. Which is currently not available. Patient's friend is visiting him in the ICU. Light trach secretion September 01: ICU. On the ventilator. FiO2 45%. PEEP of 5. Continues to have light trach secretions. Sputum cultures again growing Pseudomonas. Zerbaxa was obtained and resumed. Blood pressure running low. On Levophed. Patient's younger son at the bedside. Colostomy working fine. Has been spiking fevers. Cooling blanket. Ice packs. September 02: ICU. Ventilator FiO2 45%. PEEP of 5. Continues to have some trach secretions. IV Zerbaxa IV tobramycin. TPN lipids to continue. Also Levophed. Patient started cooling blankets since yesterday for temperatures. Along with the nurse speech therapy records were reviewed from last few admissions. Patient with multiple MBS and bedside swallow eval. No trouble with swallowing. Patient put on a chopped diet. Thin liquids. Patient did spike a fever of 101.7 earlier today. Low ionized calcium. IV gluconate given. September 03: ICU. On ventilator FiO2 45%. PEEP of 5. Mild trach secretions. Getting IV TPN lipids. IV tobramycin. Zerbaxa was substituted to Avycaz. By ID. No fever per se since yesterday. For blood pressure patient is also on Levophed and vasopressin. September 04: ICU. On ventilator FiO2 45%. PEEP of 5. Clear trach secretions. Getting IV TPN lipids. IV tobramycin. And IV Avycaz. Remains afebrile.. On Levophed and vasopressin. Awake. 09/06/2024 Patient is seen and evaluated in ICU; remains on mechanical ventilator, actually his home ventilator, with settings of volume assist-control, rate 20, tidal volume 450, FiO2 45%, PEEP of 5. - patient has been refusing blood; no ABGs to. He is getting lactated Ringer's at 50 cc an hour, TPN at 65 cc an hour. - patient remains on the same antibiotics. - Labs reviewed which reveal white count 5.21, hemoglobin 7.9, hematocrit 27.5, and platelet count 64,000. Sodium 141, potassium 3.5, chlorides 102, CO2 32, BUN 25, and creatinine 0.35. Glucose is 152. Calcium is 8. Albumin is 2.1. -Chest x-ray is largely unchanged. Critical care managing mechanical ventilation; recommending to add scopolamine patch for increased secretion -Patient remains on Avycaz and tobramycin - Continue with current TPN 09/07 Patient remains in the ICU lethargic. He is s/p tracheostomy Overnight he was more hypoxic they have to increase PEEP to 8. Also has a lot of secretions when needed for secretions suctioning to try to become apneic per Staff. Patient currently receiving Avycaz and tobramycin. on TPN also 09/08 Patient remains in the ICU awake and alert status post tracheostomy. He has contractures of both upper and lower extremities He is complaining from pain in his lungs. He is status post flexible bronchoscopy and bronchoalveolar lavage yesterday. He has previous sputum culture positive for Pseudomonas currently covered with ceftazidime and tobramycin. He is also on Lovenox 90 mg 09/09 Patient still in the ICU on mechanical ventilation via tracheostomy. PEEP is 8.0 as is yesterday Also he spiked little fever to 100.7. IV vancomycin is added to tobramycin and ceftazidime He is getting also bronchoscopy follow-up culture results 09/10 Patient feels clinically the same, he still getting breathing via mechanical ventilation through his tracheostomy with PEEP of 8. Patient feels he is required suctioning through his tracheostomy tube. He denies chest pain or pain anywhere else he can communicate by head signs and gestures. Hemodynamically stable and afebrile hemoglobin 7.4 platelet count 73 Glucose is controlled potassium 3.3 He remains on broad-spectrum antibiotic Rocephin at this time tobramycin and IV vancomycin added yesterday because he had low-grade fever. He is getting TPN. IV fluid Ringer lactate was stopped and patient was started on IV Lasix 20 mg 3 times a day continue with therapeutic dose of Lovenox as well 09/11 Patient remains in the ICU Remains on mechanical ventilation via tracheostomy He status post bronchoalveolar lavage 2 days ago, culture is growing Pseudomonas aeruginosa and corynebacterium Patient remains on broad-spectrum antibiotics with IV vancomycin, tobramycin, ceftazidime On IV Lasix also is on therapeutic dose of Lovenox 90 mg twice daily No IV fluids 09/12 Patient remains in the ICU Clinically close to what he was over the last 2 days still getting oxygen via his tracheostomy He remains on broad-spectrum antibiotic with Ceftin this time and IV vancomycin. Also he is on IV Lasix 20 mg and therapeutic dose of Lovenox. 09/13 Patient remains in the ICU on mechanical ventilation via tracheostomy Patient looks better today, he breathing better Less secretion Fentanyl patch increased 09/14. Patient seen and examined. Patient continues to be on mechanical ventilation via trach mask. Currently on TPN. Currently on IV Zerbaxa and vancomycin 09/15. Patient seen and examined.Vital signs done showed the patient overnight, heart rate 106, blood pressure 107/40, currently on ventilation. Labs reviewed showed WBC 7.27, hemoglobin 7.5, sodium 148 on potassium 4.3, BUN 23, creatinine 0.47 09/16. Patient seen and examined labs reviewed showing WBC 5.45, hemoglobin 9.6, platelet count 131, sodium 146, potassium 4.1, BUN 20, creatinine 0.47. Continue small amount of Levophed. Currently on Zerbaxa and vancomycin. Currently on TPN September 17: ICU. Patient has taken a turn for the worse today. Significant thick white secretions from the trach. Sinus rhythm. Receiving TPN. Patient is on Levophed and vasopressor. Rather high dose. FiO2 [address] of 10. [address]. Ho earlier spoke to the patient/family. Remains full code September 18: ICU. Intubated FiO2 70 PEEP of 12. Sinus rhythm. Drips include IV propofol at 50 and Levophed at 0.13. Patient is off vasopressin. Patient secretions. Family at the bedside. September 19: ICU. Intubated. FiO2 50 and a PEEP of 12. Drips include IV Levophed and propofol. Also started on Lasix drip 10 mg an hour yesterday. Secretions present. September 20: ICU. Intubated. FiO2 50 and a PEEP of 12. Hemoglobin 6.3. Secondary to blood being given. Patient been on and off Levophed. On propofol. Lipids have been held. Continues with TPN. Lasix drip was discontinued. Lovenox has been held because of low hemoglobin. Unable anemia is felt to be combination of regular blood draws and possible element element of hemolysis from all the infection. No dark stool. Family at the bedside September 21: ICU. Intubated. Received 2 units of blood yesterday. Hemoglobin 7.6 today. Per nephrology renal replacement therapy. Dialysis access placed by Dr. Cadena. Patient earlier today on Levophed. Propofol. Getting TPN. Sinus rhythm. Urine output decreased September 22: ICU. Intubated. FiO2 15 of PEEP of 12. Seen earlier today. Dialysis being started. Been on IV Levophed propofol. Sinus rhythm. TPN. Sinus rhythm. September 23: ICU. Intubated. Due for another dialysis today. Saw the patient earlier today. Remains on IV Levophed propofol. Sinus rhythm. TPN. On fentanyl patch. September 24: ICU. Intubated. FiO2 40 and PEEP of 12. Remains on IV Levophed and propofol. IV TPN. Decrease trach secretions. IV antibiotics. Was due for dialysis earlier today. September 25: ICU. Intubated. FiO2 30%. Patient getting IV Levophed and propofol. IV TPN. Dialysis today. Receiving IV antibiotics. Does opens eyes occasionally. Some commands per nursing. September 26: ICU. Intubated. FiO2 30 and a PEEP of 8. Had 2 L hemodialysis removed yesterday. Getting hemodialysis today. Aiming for 2 to 3 L. Patient is on propofol. Currently Levophed on hold. Getting TPN. Patient is actually awake and following commands. Sinus rhythm. September 27: ICU. Intubated. FiO2 39 PEEP of 8. No dialysis today. Remains on IV Levophed propofol. TPN. There is a bedside. Patient asked me how is he doing. Had a lengthy information in terms of his guarded prognosis. Did tell him it is his choice about how he wishes to proceed. He needs to decide between treatment benefits versus in the suffering because of that entails from treatment and his recurrent infections etc. Especially in the context of decreased activity. Kidney failure, respiratory failure etc. September 28: ICU. Intubated. FiO2 30 and a PEEP of 8. For dialysis today. Off Levophed this morning. IV propofol. TPN. Some clear light to trach secretions. Colostomy working. Poor urine output. September 29: ICU. Intubated. IV propofol Levophed. TPN. Awake. Discussed with Dr. Holt. Prognosis very poor. Probably treatment is the point of getting futile. Patient needs about 34 more days to go to long-term ventilator setting. September 30: ICU. Intubated. IV propofol. Currently off Levophed. TPN. Getting dialysis today. Awake. IV antifungal. Given a unit of blood for hemoglobin of 6.9 October 01: ICU. Intubated. IV propofol. Remains on Levophed. TPN dose adjusted. Dialysis. IV aniedulefungin. Eyes open. Vent. FiO2 30%. PEEP 5 September 18: ICU. Intubated. IV propofol. Off Levophed. TPN. Dialysis today. IV aniedulefungin last day on October 06. Per ID. Some trach secretions clear Active Medications Albuterol/Ipratropium (Ipratropium-Albuterol 3 Ml Neb) 3 ml INHALATION RT-Q4H PRN PRN Reason: shortness of breath Last Admin: 10/02/24 15:05 Dose: 3 ml Artificial Tears (Artificial Tears-Hypromellose Drops 15 Ml Btl) 1 drops BOTH EYES QID PRN PRN Reason: Dry Eye(s) Last Admin: 09/04/24 12:52 Dose: 1 drops Chlorhexidine Gluconate (Chlorhexidine Gluconate 15 Ml Cup) 15 ml MUCOUS MEM BID ANNIE Last Admin: 10/02/24 08:16 Dose: 15 ml Darbepoetin Andry (Darbepoetin Andry 40 Mcg/0.4 Ml Syringe) 40 mcg SQ Q7D [facility] Last Admin: 10/01/24 11:38 Dose: 40 mcg Dextrose/Water (Dextrose 50% Syringe 50 Ml) 25 ml IVP PER PROTOCOL PRN; Protocol PRN Reason: Hypoglycemia Dextrose/Water (Dextrose 50% Syringe 50 Ml) 50 ml IVP PER PROTOCOL PRN; Protocol PRN Reason: Hypoglycemia Fentanyl (Fentanyl 100mcg/Hr Patch) 1 patch TRANSDERM Q72H ANNIE; Protocol Last Admin: 10/01/24 11:38 Dose: 1 patch Heparin Sodium (Porcine) (Heparin Sodium,Porcine 5,000 Unit/Ml 1 Ml Vial) 5,000 unit SQ Q8HR [facility] Last Admin: 10/02/24 15:06 Dose: 5,000 unit Hydrocortisone Sodium Succinate (Hydrocortisone Succinate 100 Mg/2 Ml Vial) 50 mg IV Q12HR [facility] Last Admin: 10/02/24 08:15 Dose: 50 mg Hydromorphone HCl (Hydromorphone 1 Mg/Ml 1 Ml Syringe) 1 mg IVP Q3HR PRN PRN Reason: Moderate Pain (Scale 4 to 6) Last Admin: 10/02/24 15:06 Dose: 1 mg Anidulafungin 100 mg/ Sodium (Chloride) 130 mls @ 84 mls/hr IVPB DAILY [facility]; Protocol Last Admin: 10/02/24 08:17 Dose: 84 mls/hr Propofol 1,000 mg/ IV Solution 100 mls @ 32.34 mls/hr IV .Q3H6M ANNIE; Protocol Last Admin: 10/02/24 14:33 Dose: Not Given Norepinephrine Bitartrate 8 mg (/ Sodium Chloride) 258 mls @ 6.513 mls/hr IV .Q24H [facility]; Protocol Last Admin: 10/02/24 08:17 Dose: Not Given Sodium Acetate 40 meq/ Sodium Chloride 60 meq/ Calcium Gluconate 0.5 gm/ Potassium Chloride 30 meq/ Magnesium Sulfate 0.5 gm/ Amino Acids/Dextrose 1,056 mls @ 85 mls/hr IV .BY DURATION [facility] Last Admin: 10/01/24 17:24 Dose: 85 mls/hr Parenteral Vitamin Supplement 10 ml/ Zinc/Copper/Manganese/Selenium 1 ml/ Sodium Acetate 40 meq/ Sodium Chloride 60 meq / Calcium Gluconate 0.5 gm/Potassium Chloride 30 meq/Magnesium Sulfate 0.5 gm/Amino Acids/Dextrose 1,067 mls @ 85 mls/hr IV .BY DURATION [facility] Last Admin: 10/02/24 05:22 Dose: 85 mls/hr Insulin Human Lispro (Insulin Lispro (Humalog) 100 Unit/Ml 10 Ml Vl) 0 unit SQ Q6HR [facility]; Protocol Last Admin: 10/02/24 11:44 Dose: Not Given Lorazepam (Lorazepam 1 Mg/0.5 Ml Vial) 0.5 mg IV Q6HR PRN PRN Reason: Anxiety Last Admin: 09/15/24 18:26 Dose: 0.5 mg Miscellaneous Information (Pneumonia Protocol Utilized 1 Each Misc) 1 each PO ONCE PRN PRN Reason: Per Protocol Miscellaneous Information (Potassium Replacement Protocol 1 Each Misc) 1 each MISCELLANE DAILY PRN; Protocol PRN Reason: Per Protocol Miscellaneous Information (Magnesium Replacement Protocol 1 Each Misc) 1 each MISCELLANE DAILY PRN; Protocol PRN Reason: Per Protocol Naloxone HCl (Naloxone 0.4 Mg/Ml 1 Ml Vial) 0.2 mg IV Q2M PRN PRN Reason: Opioid Reversal Nystatin (Nystatin 100,000 Unit/Gm Powd 15 Gm) 1 applic TOPICAL BID [facility]; Protocol Last Admin: 10/02/24 08:15 Dose: 1 applic Ondansetron HCl (Ondansetron 4 Mg/2 Ml Vial) 4 mg IVP Q6HR PRN PRN Reason: Nausea And Vomiting Last Admin: 09/01/24 19:41 Dose: 4 mg Pantoprazole Sodium (Pantoprazole 40 Mg/10 Ml Vial) 40 mg IV DAILY [facility] Last Admin: 10/02/24 08:15 Dose: 40 mg Petrolatum (Zinc Oxide Paste (Z-Guard) 1 Applic) 1 applic TOPICAL BID PRN; Protocol PRN Reason: Wound Healing Social history: Patient started smoking at the age of [age] 1 pack a day stopped in 2017. Nonambulatory. Is cared by his son over. Who is also the DPOA Physical examination: VITAL SIGNS: 98.2, 61, 25, 87 x 39, 96% on 40% FiO2 GENERAL:, Eyes open EYES: Pupils equal. Conjunctiva loan l. HEENT: External appearance of nose and ears normal, oral cavity dry NECK: JVD unable to assess; masses not palpable. Tracheostomy HEART: First and second heart sounds are normal; no edema. LUNGS: Respiratory rate increased, decreased breath sounds, some crackles ABDOMEN: Soft, nontender, liver spleen not palpable, no masses palpable. Double barrel ostomy. PSYCH: Following simple commands MUSCULOSKELETAL: Right BKA. Left foot drop. Left hand contracture. Right hand also with contracture but able to have some movements NEUROLOGICAL: Cranial nerves grossly intact; no facial asymmetry, slight movement in the right arm. L INVESTIGATIONS, reviewed in the clinical context: October 02: White count 5.5 hemoglobin 7.3 potassium 4.6 creatinine 1.89 September 17: White count 20 hemoglobin 8.5 platelets 199 potassium 4.2 BUN 25 creatinine 0.4. ABG: pH 7.17 pCO2 79 PO277. September 02: White count 3.6 hemoglobin 9.7 platelets 130 potassium 3.9 BUN 23 creatinine 0.36 ionized calcium 4.3 TSH 2.7 Sputum culture: Pseudomonas aeruginosa: Sensitive to Zosyn, tobramycin, ceftazidime Sputum culture: Pseudomonas aeruginosa August 30: White count 3.5 hemoglobin 10.0 platelets 133 potassium 3.5 creatinine 0.36 August 29, 2024: White count 6.2 hemoglobin 12.3 platelets 216 sodium 128 potassi um 3.1 BUN 50 creatinine 0.46 lactic acid 2.1 calcium 10.8 phosphorus 3.0 troponin I 0.016 UA: Negative for nitrite Influenza type A, type B, RSV, SARS-CoV-2: Not detected EKG tracing personally reviewed by me-normal sinus rhythm Chest x-ray film personally reviewed by me-right basilar infiltrate Previous labs: Sputum culture July 20, 2024: Pseudomonas aeruginosa Assessment plan: - basal pneumonia. Previous admission sputum was positive for Pseudomonas aeruginosa-:: Has received different antibiotics. Completed course of antibiotic Being followed by pulmonary, and ID - Candidemia likely source left chest wall PICC line that has been discontinued. And repeat blood cultures on September 22 negative. Line changes are being followed by ID IV Eraxis-last days October 06 per ID - Fluid overload Had received Lasix drip - Acute kidney injury from ATN from septic shock. Also consider vancomycin toxicity. Oliguric. Volume overload. Dialysis catheter placed by Dr. Cadena-September 21. First dialysis was on September 22.-Has been getting dialysis per nephrology - Metabolic alkalosis - Septic shock: Levophed has been on and off - Acute on chronic hypoxic and hypercapnic respiratory failure, vent dependent at night at home: Slow to respond On ventilator support. Propofol - Tracheostomy with trach collar -Acute normocytic anemia of chronic disease and hospital-acquired anemia from blood draws and possible hemolysis from infection Today received 6 units of blood - Thrombocytopenia likely from sepsis Follow - Right below-knee amputation - Chronic quadriparesis. Including left foot drop. Left arm contracture. Some right hand contracture. Some movement in the right arm - Crohn's disease with double barrel ostomy bag in place since 09/2021 - TPN and lipids Lipids have been held during propofol - Full code - DPOA, son BECKY Prognosis remains guarded. Past Medical History Past Medical History: CVA/TIA, Deep Vein Thrombosis (DVT), Pneumonia Additional Past Medical History / Comment(s): Hx CVA in 2012, DVT R arm, Crohns. colostomy Bag placed in 09/2021. History of Any Multi-Drug Resistant Organisms: MRSA, Other MDRO Date of last positivie culture/infection: 07/20/24-Other MDRO; 12/14/23-MRSA MDRO Source:: Other MDRO - sputum, BAL; MRSA- nasal Past Surgical History: Bowel Resection, Cholecystectomy, Orthopedic Surgery Additional Past Surgical History / Comment(s): R BKA, trach with chronic home vent Past Anesthesia/Blood Transfusion Reactions: No Reported Reaction Additional Past Anesthesia/Blood Transfusion Reaction / Comment(s): recalled from previous admission Smoking Status: Never smoker
[2024-10-02 17:01] LABS: Glucose,Whole Blood 125 mg/dL (70-110)
[2024-10-03 00:21] LABS: Glucose,Whole Blood 165 mg/dL (70-110)
[2024-10-03 05:03] LABS: African American GFR (CKD) 74 (>60 ml/min/1.73 sqM); Anion Gap 8 mmol/L; Blood Urea Nitrogen 34 mg/dL (9-20); Calcium 8.5 mg/dL (8.4-10.2); Carbon Dioxide 26 mmol/L (22-30); Chloride 99 mmol/L (98-107); Glucose 125 mg/dL (74-99); Magnesium 1.9 mg/dL (1.6-2.3); Non-African American GFR(CKD) 64 (>60 ml/min/1.73 sqM); Potassium 3.6 mmol/L (3.5-5.1); Sodium 133 mmol/L (137-145)
[2024-10-03] MEDS: MAGNESIUM SULFATE-D5W PMX 1 GM in DEXTROSE/WATER 1 100ML.BAG IVPB ONE (05:59)
[2024-10-03] MEDS: POTASSIUM CHLORIDE 10 MEQ in WATER FOR INJECTION 1 100ML.BAG IVPB SCH (07:02)
--- NOTE | 2024-10-03 07:07 | XR ---
EXAMINATION TYPE: XR chest 1V portable DATE OF EXAM: 10/03/2024 5:32 AM COMPARISON: Multiple radiographs, with the most recent on 10/02/2024 TECHNIQUE: XR chest 1V portable Portable AP radiograph of the chest. CLINICAL INDICATION:Male, 49 years old with history of vent; FINDINGS: Lungs/Pleura: Elevation of the right hemidiaphragm. No pneumothorax. No sizable pleural effusion. Dif fuse interstitial opacities persist. Pulmonary vascularity: Unremarkable. Heart/mediastinum: Cardiomediastinal silhouette is prominent in size. Musculoskeletal: No acute osseous pathology. Other findings: Surgical clips within the right neck. Lines/Tubes: Endotracheal tube with distal tip 4.1 cm above the avery Left IJ approach dual-lumen hemodialysis catheter distal tip in the right atrium. Left-sided PICC line with distal tip at the superior cavoatrial junction. IMPRESSION: 1. Stable support lines and tubes. 2. Persistent diffuse interstitial opacities. [facility], , 10/03/2024 7:05 AM
[2024-10-03 08:31] LABS: HCT 23.6 % (39.6-50.0); HGB 7.1 g/dL (13.0-17.0); MCH 27.1 pg (27.0-32.0); MCHC 30.1 g/dL (32.0-37.0); MCV 90.1 fL (80.0-97.0); Platelet Count 206 10*3/uL (140-440); RBC 2.62 10*6/uL (4.40-5.60); RDW 20.4 % (11.5-14.5); WBC 6.02 10*3/uL (4.50-10.00)
[2024-10-03 09:01] LABS: Triglycerides 194.0 mg/dL (0.00-149.00)
--- NOTE | 2024-10-03 11:15 | P.PN ---
Subjective Patient is seen for follow-up for acute kidney injury. Patient remains on the vent. He is awake. Started hemodialysis on 09/22/2024 for volume overload and worsening acute kidney injury Patient remains oliguric. FiO2 at 30% Status post hemodialysis yesterday with UF of 3 L No significant issues today. Objective - Vital Signs Vital signs: Vital Signs Temp 98.3 F 10/03/24 08:00 Pulse 68 10/03/24 10:30 Resp 25 H 10/03/24 10:30 BP 133/65 10/03/24 10:30 Pulse Ox 96 10/03/24 10:30 FiO2 30 10/03/24 08:00 Intake & Output 10/02/24 10/03/24 10/03/24 18:59 06:59 18:59 Intake Total 2676 2204.209 492 Output Total 6425 855 25 Balance -3749 1349.209 467 Weight 92.2 kg Intake: IV 2276 1078 492 0.9 KVO 120 110 40 Anidulafungin 100 mg In 1100 100 Sodium Chloride 0.9% 100 ml @ 84 mls/hr IVPB DAILY ANNIE Rx#:[id number] Pressure Bag 36 33 12 TPN 1020 935 340 Intake, IV Titration 1126.209 Amount Sodium Acetate 40 meq 986 Sodium Chloride 4Meq/ml Vial 60 meq Calcium Gluconate 0.5 gm Potassium Chloride 30 meq Magnesium Sulfate gm 0.5 gm In Amino Acids 5 %/ Dextrose 20 % 1,000 ml @ 85 mls/hr IV .BY DURATION ANNIE Rx#:[id number] propofoL 1,000 mg In 140.209 Empty Bag 1 bag @ 50 MCG/ KG/MIN 32.34 mls/hr IV . Q3H6M ANNIE Rx#:[id number] Hemodialysis 400 Output: Drainage 850 Medial Abdomen 850 Urine 25 5 25 Hemodialysis 3400 Hemodialysis Net Amount 3000 Other: Voiding Method Indwelling Catheter Indwelling Catheter Indwelling Catheter ABP, PAP, CO, CI - Last Documented Arterial Blood Pressure - Exam Patient is on the vent he is awake. Examination of the heart S1 and S2 Tracheostomy noted Examination of the lungs bilateral breath sounds are heard Abdomen is distended Examination of lower extremities shows right BKA and 2+ edema in the left leg - Labs CBC & Chem 7: 10/03/24 04:30 10/03/24 04:30 Labs: Abnormal Lab Results - Last 24 Hours (Table) 10/02/24 10/02/24 10/03/24 Range/Units 11:26 17:00 00:19 RBC (4.40-5.60) 10*6/uL Hgb (13.0-17.0) g/dL Hct (39.6-50.0) % MCHC (32.0-37.0) g/dL Sodium (137-145) mmol/L BUN (9-20) mg/dL Creatinine (0.66-1.25) mg/dL Glucose (74-99) mg/dL POC Glucose (mg/dL) 129 H 125 H 165 H (70-110) mg/dL Phosphorus (2.5-4.5) mg/dL Triglycerides (0.00-149.00) mg/dL 10/03/24 10/03/24 10/03/24 Range/Units 04:30 04:30 04:30 RBC 2.62 L (4.40-5.60) 10*6/uL Hgb 7.1 L (13.0-17.0) g/dL Hct 23.6 L (39.6-50.0) % MCHC 30.1 L (32.0-37.0) g/dL Sodium 133 L (137-145) mmol/L BUN 34 H (9-20) mg/dL Creatinine 1.30 H (0.66-1.25) mg/dL Glucose 125 H (74-99) mg/dL POC Glucose (mg/dL) (70-110) mg/dL Phosphorus 1.4 L (2.5-4.5) mg/dL Triglycerides 194.00 H (0.00-149.00) mg/dL Assessment and Plan Assessment: 1. Acute kidney injury secondary to ATN secondary to septic shock and vancomyc in toxicity. Vancomycin level 49.3 on 09/19/2024. Patient remains oliguric with significant volume overload noted. Started hemodialysis on 09/22/2024. 2. Septic shock secondary to pneumonia and fungemia. 3. Acute blood loss anemia with hemoglobin of 6.3 today. Currently receiving a unit of blood. 4. Volume overload. 5. Chronic hypoxic and hypercapnic respiratory failure, home ventilator dep endent. 6. History of cardiac arrest. 8. Status post right BKA. Plan: Next hemodialysis on 10/05/2024 Maintained on TPN Monitor electrolytes.
--- NOTE | 2024-10-03 12:13 | P.PN ---
Subjective Progress Note Date: 10/03/24 This is a 49-year-old white male familiar to my service, history of paraplegia, home vent dependent, history of tracheostomy, patient had multiple admissions to the ICU for recurrent episodes of pneumonia and respiratory failure requiring ventilatory support. On his last admission patient was eventually discharged home on a home ventilator, and this was back on 08/04/2024. Patient was discharged home with a PICC line, patient was in the ER yesterday on 08/28 for abnormal labs mostly low potassium and low sodium discharged home however he came back today complaining of shortness of breath, has been ventilator dependent all along. Chest x-ray showed basically bibasilar opacities/atelectasis, doubt pneumonia, the findings in the left lower lobe are chronic. Patient did have previous history of pneumonia involving the left lower lobe and he had multiple bronchoscopies in the past. Bronchial cultures and sputum cultures have been positive in the past for mostly Pseudomonas aeruginosa. Patient was seen in the ER today, and he is already on cefepime for empiric coverage for potential left lower lobe pneumonia, patient had abnormal electrolytes with relatively low sodium low potassium, no leukocytosis, normal renal profile, blood pressure was soft, and he was given fluid boluses. Lactic acid was 2.1, D-dimer is normal, patient was admitted, and this consult was initiated. 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 Patient was seen today on 08/30/2024, patient continues to have intermittent episodes of fever with Tmax of 102, patient required norepinephrine and he remains on norepinephrine at 0.04 mcg/kg/min remains on LR at 130 cc/h remains on his home ventilator at tidal volume of 450 rate of 20 FiO2 45% and PEEP of 5. Seems comfortable, not in distress, his WBC is 3.5 hemoglobin 10.0 electrolytes are normal renal profile is normal potassium is borderline low. Patient remains on cefepime, vancomycin was added because of his previous history of MRSA, and is on cefepime for previous history of pseudomonal infection and now that the patient may be septic it is more of a reason to broaden the spectrum of antibiotics coverage with cefepime and vancomycin. Sputum cultures and blood cultures are pending. Patient does have history of pseudomonal and history of MRSA infections, and I discontinued his Zithromax today replace Zithromax with vancomycin. Viral screen is negative Legionella antigen is negative. Chest x- ray is relatively unchanged continues to show bibasilar opacities atelectasi s/pneumonia. Progress note dated August 31, 2024. The patient is seen today in room 252. The patient was admitted a couple days ago, to the intensive care unit. The patient is currently on mechanical ventilator, actually his home ventilator. He is on volume assist-control, rate 20, tidal volume 450, FiO2 45% PEEP of 5. The patient is getting lactated Ringer's at 130 cc an hour, TPN at 91 cc an hour, norepinephrine at 8 mcg/min. Doppler of the left upper extremity was negative. He continues on Zerbaxa, and vancomycin. We will check a procalcitonin level. Cultures thus far are negative. He does have a previous history of methicillin-resistant Staph aureus infection, and pseudomonal infections. White count was 2.21, hemoglobin 9.3, hematocrit 32, platelet count 1 61,000. D-dimer was 5.78. Sodium 132, potassium 4.3, chlorides 106, CO2 21, BUN 18, creatinine 0.28. Glucose was 141. Calcium 7.8. C. difficile study was negative. Urine Legionella antigen was negative. Microbiologic studies are currently negative. Chest x-ray shows bibasilar airspace opacities, possibly consistent with pneumonia. 09/01/24 - The patient is seen today in room 252. Admitted to the hospital and the intensive care unit on 08/29/2024. The patient is currently on mechanical ventilator, his one from home. He is on volume assist control, rate of 20, tidal volume of 450, FiO2 45% and PEEP of 5. He currently has LR running at 50 cc/h, TPN at 91 cc/h, Zerbaxa and tobramycin. Chest Xray done this morning showed stable airspace opacities. Cultures are positive for pseudomonas aeruginosa, awaiting sensitivities. WBCs 2.69, Hgb 8.9, Hct 31.5, PLT 153, Na 135, K 3.4, Cl 109, HCO3 19, BUN 22, Cr 0.34, Phos 2.4. 09/02/24 - He is seen today in room 252. Admitted to the hospital and ICU on 08/29/24. He continues on mechanical ventilator, his one from home. He remaines on volume assist control, rate of 20, tidal volume of 450, FiO2 45% and PEEP of 5. He continues to have LR running at 50 cc/h, TPN at 91 cc/h, norepinephrine at 0.13 mcg/kg/min, Zebraxa and Tobramycin. Chest XRay this morning showed stable airspace opacities. Continue to await sensitivity of pseudomonas sputum culture. Lab work shows WBCs 3.64, Hgb 9.7, Hct 33.5, PLT 130, Na 133, K 3.9, bicarb 21, BUN 23, Cr 0.36, Ca 7.8, Mg 2.4, Albumin 2.3. 09/03/24 - He is seen in room 252. Admitted to the hospital and ICU on 08/29/24. He continues on mechanical ventilator, his one from home. He remaines on volume assist control, rate of 20, tidal volume of 450, FiO2 45% and PEEP of 5. He continues to have LR running at 50 cc/h, TPN at 91 cc/h, norepinephrine at 0.24 mcg/kg/min, Avycaz and Tobramycin. Zebraxa was discontinued as there was no reported sensitivity to it. Lab work shows WBCs 9.40, Hgb 8.8, Hct 30.6, PLT 100, Na 130, K 3.6, bicarb 23, BUN 25, Cr 0.51, Ca 7.8, Ionized Ca 4.6, Phos 3.3, Mg 2.1, TSH 2.710 and random cortisol 13.1. 09/04/24 - He is seen in room 252. Admitted to the hospital and ICU on 08/29/24. He continues on mechanical ventilator, his one from home. He remaines on volume assist control, rate of 20, tidal volume of 450, FiO2 45% and PEEP of 5. He continues to have LR running at 50 cc/h, TPN at 91 cc/h, norepinephrine at 0.24 mcg/kg/min, Avycaz and Tobramycin. Lab work shows sodium 133, potassium 3.5, bicarb 24, BUN 27, creatinine 0.47, calcium 7.9, ionized calcium 4.6, magnesium 1.9, phosphorus 3.0, total bilirubin 1.7, AST 57, ALT 45, alkaline phosphatase 99. Progress note dated September 05, 2024. 49-year-old male well-known to our service. He is seen today in room 252. He continues on volume assist-control, rate 20, tidal 450, FiO2 45%, PEEP of 5. The patient has refused blood gases. Currently, he is getting TPN at 65 cc an hour, norepinephrine at 1 mcg/min, LR at 50 cc/h. Clinically, the patient is doing well. His chest x-ray remains about the same. Yesterday he was on a hig her dose of norepinephrine, and also was on vasopressin. Both have been weaned off. Current labs include a sodium 136, potassium 4.1, chlorides 101, CO2 28, BUN 30, creatinine 0.37. Glucose 153. Albumin is 2.2. Previous sputum, from August 29 with positive for Pseudomonas aeruginosa. Chest x-ray is largely unchanged. Progress note dated September 06, 2024. 49-year-old male again seen today in the intensive care unit, room 252. He remains on mechanical ventilator, actually his home ventilator, with settings of volume assist-control, rate 20, tidal volume 450, FiO2 45%, PEEP of 5. No blood gases today. The patient has been refusing. He is getting lactated Ringer's at 50 cc an hour, TPN at 65 cc an hour. He continues on the same antibiotics. White count 5.21, hemoglobin 7.9, hematocrit 27.5, and platelet count 64,000. Sodium 141, potassium 3.5, chlorides 102, CO2 32, BUN 25, and creatinine 0.35. Glucose is 152. Calcium is 8. Albumin is 2.1. Chest x-ray is largely unchanged. 09/07/2024, the patient remains on a mechanical ventilator. The patient is having excessive respiratory secretions. Attempts to suction this patient has failed as the secretions are quite thick and the patient has had episodes of bradycardia while suctioning. Remains on TPN at 65 cc an hour and lactated Ringer at 50 cc an hour. Remains on assist-control mode mechanical ventilation at rate of 20, tidal volume of 450, FiO2 of 100% with a PEEP of 8. Patient has refused to have an arterial line. The patient has refused blood gases. Urine output is adequate. No hypotension. He has a double-lumen catheter in his left chest and the left forearm IV line.He is afebrile. He continues to have multidrug-resistant Pseudomonas in his sputum. The patient remains on ceftazidime/avibactam per IDs recommendations. He is also on IV tobramycin. Remains on stress dose hydrocortisone. Blood work shows a white cell count of 6.9, hemoglobin 7.9 and a platelet count of 90. BUN is 24 with a creatinine of 0.33. Sodium is 143 and a potassium level of 3.7. Bicarb level is at 33. Output from the ileostomy bag is high and the net fluid balance is +1.2 L over the past 24 hours. Airway pressures on the mechanical ventilator are elevated with an elevated peak airway pressure around 36 consistent with excessive respiratory secretions and mucous plugs. Chest x-ray shows atelectatic changes infiltrates in lung bases along with some scattered hazy bilateral pulmonary infiltrates. 09/08/2024, the patient is being seen for a follow-up. On today's evaluation, the patient is awake on no sedation. His chest x-ray showing worsening bilateral pulmonary filtrates. Running low-grade fever. A bronchoscopy in the BAL was done yesterday and the results are still pending for now. He remains on assist-control mode at rate of 20, tidal volume of 450, FiO2 of 60% with a PEEP of 8. He remains on lactated Ringer at rate of 50 cc an hour and TPN at rate of 65 cc an hour. He remains on IV Lasix. He remains on ceftazidime/avibactam regarding his multidrug-resistant Pseudomonas. He is also on tobramycin. The white cell count is 6 with a hemoglobin 7.7 and platelet count of 77. Sodium is at 143, BUN 24 with a creatinine of 0.2. Serum bicarb is at 34. LFTs are within normal limits. The patient had no blood cares for today. He has refused blood gases. On a separate note, cardiology was consulted regarding the episodes of bradycardia that the patient is encountering. Upon sectioning, the patient is having episodes of cardiac block, likely third-degree AV block that last around 5 to 8 seconds. Patient was taken off the scopolamine patch. On 09/09/2024, the patient remains on a mechanical ventilator. He is complaining of shortness of breath even while being on the mechanical ventilator. Repeat chest x-ray was done today and the patient has developed diffuse infiltrates bilaterally greater in the lung bases and there is interval worsening in the chest x-ray findings. The bronchoalveolar lavage that was obtained earlier on 09/07/2024 showed Pseudomonas aeruginosa and corynebacterium. The patient remains on ceftazidime avibactam and tobramycin. Vancomycin was also added. He is running a low-grade fever with a Tmax of 100.7. He remains on assist-control mode mechanical ventilation at rate of 20, tidal volume of 450, FiO2 of 60% with a PEEP of 8. The patient did not have a blood gas today. Fluid balance is +2.6 L over the past 24 hours. He is currently on IV Lasix 20 mg IV push every 8 hours. The patient is also on TPN at rate of 65 cc an hour and lactated Ringer at rate of 50 cc an hour. The white cell count is 4.6 with a heme of 7.3 and a platelet count of 72. Sodium is at 144, bicarb is at 34, BUN 22 with a creatinine of 0.38. Chloride is 103. Calcium levels at 7.4, phosphorus 3.6, LFTs are normal. Albumin levels at 2.1. Arousable, able to communicate. No significant cardiac arrhythmias over the past 24 hours. 09/10/2024, patient is awake and alert and communicating. Continues to have on and off episodes of shortness of breath while being on a mechanical ventilator. Oxygenation is borderline and the patient's pulse ox remains low. Unable to obtain any blood gases as the patient has declined arterial blood draws. He is on assist-control mode rate of 20, tidal volume of 450, FiO2 of 70% with a PEEP of 10. Remains on TPN at rate of 35 cc an hour and lactated Ringer at rate of 50 cc an hour. Fluid balance is +2.6 L over the past 24 hours.the white cell count is 6.3, hemoglobin is at 7.4, platelet count is a 73 and the patient remains on therapeutic dose of Lovenox. The patient's sodium levels at 143, K is at 3.3, bicarb is at 40 with a BUN of 21 and a creatinine of 0.8. Blood sugar is 140. The most recent lavage from the right lower lobe was positive for Pseudomonas aeruginosa and corynebacterium. The patient remains on a combination of ceftazidime antibacterial combination, tobramycin and IV vancomycin. Output from ileostomy is in order of 800 cc over the past 8 hours. Remains on IV Lasix. Chest x-ray is unchanged and it shows bilateral pulmonary infiltrates, diffuse increased interstitial lung markings, lines and catheters are in place, tracheostomy tube is in place. 09/11/2024, the patient is stable, awake and alert and communicating. Remains on TPN for nutritional support with rate of 75 cc an hour. Remains on the same mechanical ventilator settings and the patient remains on assist-control mode at rate of 20, tidal volume of 450, FiO2 of 60% with a PEEP of 8. Fluid balance is -50 cc over the past 24 hours and the patient remains on IV Lasix 20 mg every 8 hours. The biotic coverage remains unchanged and the patient remains on a combination of ceftazidime IV Bactrim, tobramycin and vancomycin. The white cell count is at 4.7 with a hemoglobin of 7.1 and a platelet count of 89. BUN is 20 with a creatinine of 0.25. Sodium levels at 142. Serum iron levels at 16. Vancomycin trough is at 17. Follow-up chest x-ray from today shows stable bilateral pulmonary filtrates and pleural effusions bilaterally. Tracheostomy tube remains in good location. The patient continues to have high output through the ileostomy. Currently afebrile. No cardiac arrhythmias have been noted. 09/12/2024, patient is resting comfortably in bed. Remains on a mechanical ventilator. Unable to wean. Chest x-ray still showing bilateral pulmonary filtrates consistent with pneumonia. The patient is on assist-control mode at rate of 20, tidal volume of 450, FiO2 of 50% and a PEEP of 8. Remains negative fluid balance as the patient is being diuresed with IV Lasix. Fluid balance is -1 L over the past 24 hours. Remains on Lasix 20 mg IV push every 8 hours. Hemoglobin from this morning was 5.8. Repeat hemoglobin came back at 7.4. Platelet counts are stable. No evidence of any GI bleeding. Remains on Lovenox therapeutic dose. Remains on TPN at rate of 75 cc an hour. White cell count is at 5, platelet count is at 93, BUN is 25 with a creatinine 0.4. Sodium levels at 144 and a potassium level is at 3.6. Ileostomy still functioning. Remains on broad-spectrum antibiotics. Remains on ceftolozane/tazobactam. Remains on vancomycin. Remains on stress dose hydrocortisone. 09/13/2024, the patient is being seen for a follow-up. No change in his condition over the past 24 hours. Remains on a mechanical ventilator. Awake and alert and communicating. Started on fentanyl patch and his pain is under better control and the patient is using fentanyl patch 75 mcg every 72 hours. Remains assist-control mechanical ventilation at rate of 20, tidal volume of 450, FiO2 50% with a PEEP of 8. Chest x-ray from today shows stable bilateral pulmonary infiltrates, no significant change compared to yesterday and the tracheostomy tube remains in place. The patient continues to have multifocal airspace disease. Fluid balance is +30 cc over the past 24 hours. TPN is running at a rate of 75 cc an hour. Afebrile. Hemoglobin in this morning was at 5.8. Recheck was 6.1. The platelet count is 817. Sodium is at 148, potassium 3.2, BUN 26 with a creatinine of 0.44. Serum bicarb is at 38. The patient has a triglyceride level of 152. Remains on ceftolozane tazobactam and vancomycin. On 09/28/2024, the patient is being seen for a follow-up. The patient remains ventilator dependent. This morning, the patient remains on a assist-control mode of mechanical ventilation at rate of 36, tidal volume of 400, FiO2 30% with a PEEP of 5. The blood gases from today showed pH of 7.57 with a PCO2 of 30 and PO2 of 70. Chest x-ray shows ongoing diffuse interstitial infiltrates and wor sening airspace disease in the right lung base and the patient is having limited amount of respiratory secretions. Currently on propofol running at 20 mcg/kg/min. 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 Blood culture was positive on 09/15/2024 and 09/18/2024 and the patient is currently on Eraxis. Repeat blood culture on 09/22/2024 was negative. ID is on the case. Lines were all removed and the patient has a right subclavian triple-lumen catheter: Inserted on 09/17/2024. The patient is currently on no pressors. The patient also has developed an acute kidney injury. The patient was started on hemodialysis on 09/22/2024 and the patient has a left femoral triple-lumen catheter in place. Last hemodialysis session was on 09/26/2024 and another hemodialysis session is to follow this morning. He remains on TPN running at 33 cc an hour. Arousable. Sedated. Blood work from today shows a BUN of 28 with a creatinine of 1.4. Sodium is at 129 and potassium is at 4.4. WBC count is 6 with a heme of 7.1 platelet count of 206. Afebrile for now. Ileostomy continues to show increased output. On 09/29/2024, the patient is being seen for a follow-up. On today's evaluation, the patient is arousable and awake and following commands. He is on propofol running at 20 mcg/kg/min. Remains on a mechanical ventilator and the patient is calm and comfortable with limited respiratory secretions. He is on assist- control at rate of 24, tidal volume of 400, FiO2 of 30% with a PEEP of 8. pH is at 7.44 with a [id number] and PO2 of 80. Chest x-ray remains unchanged. Tracheostomy tube is in location. Remains on TPN for nutritional support arriving at 55 cc an hour. Remains on low-dose norepinephrine running at 0.01 mcg/kg/min. The patient underwent hemodialysis on 09/28/2024 with a total of 2 L of ultrafiltration. No urine output for now. Lab work is stable. The white seconds at 5.2 with a hemoglobin of 7 and a platelet count of 206. Electrolytes all within normal limits. Potassium levels are 3.6. Sodium is 134. BUN is 20 with a creatinine of 1.1. He remains on IV Eraxis. Most recent blood cultures been negative. Afebrile. 09/30/2024, the patient is being seen for a follow-up. This morning, the patient is calm and comfortable and the patient remains on propofol running at 10 mcg/kg/min. Patient is on no pressors. The patient has a left femoral hemodialysis catheter in place and his last hemodialysis session was on 09/26/2024 and the patient will undergo another session today. Urine output is in the order of 0 to 5 cc an hour. The patient will be also receiving a dose of Lasix 80 mg IV push per nephrology following hemodialysis. The patient is succe ssful insertion of the PICC line in the left upper extremity. Morning hemoglobin was 6.9 and the patient was given a unit of packed RBC. No evidence of any acute bleeding. Remains on a mechanical ventilator on assist-control mode rate of 24, tidal volume of 400, FiO2 30% with a PEEP of 6. Blood gas showed a pH of 7.45 with a [id number] and PO2 of 94. The chest x-ray shows no significant interval change. Afebrile. Hemodynamically stable. Ileostomy is functional. TPN is running at a rate of 55 cc an hour. Rest of the labs noted in the patient's hemoglobin posttransfusion came back at 8.2. The white cell count 6.6. Platelet count is at 220. BUN 36 with a creatinine of 1.55 and the sodium is 132 and a potassium level is at 4.1. On 10/01/2024, the patient is being seen for a follow-up. Condition is essentially unchanged compared to yesterday. Remains on propofol running at 10 mcg. Remains on assist-control mode of mechanical ventilation at rate of 24, tidal volume of 400, FiO2 of 30% with a PEEP of 5. pH is 7.45 with a PCO2 of 45 and PO2 of 67. Repeat chest x-ray from today shows no significant interval change. Overall appearance is similar and the patient has pulm vascular congestion and edema is slightly worse on the right compared to the left with possible development of a right-sided pleural effusion. He is not producing any urine. He has not responded to IV Lasix. He is less hemodialysis session was yesterday. He remains on IV Eraxis. Follow-up blood cultures have been sent. Their white cell count is 6.4 with a hemoglobin 7.6 and platelet count of 212. BUN 27 with a creatinine of 1.3 and sodium is at 134. The patient is currently on no pressors. Afebrile. Hemodynamically stable. Ileostomy is functional. Remains on TPN at a rate of 55 cc an hour. On 10/02/2024, the patient is being seen for a follow-up. The patient resting comfortably in bed and the patient remains on propofol running at 10 mcg/kg/min. The patient is also on TPN at rate of 85 cc an hour. IV fluids are currently at KVO. Fluid balance is +1 L. Remains on mechanical ventilator on the same ventilator setting with a tidal volume of 400, rate of 24, FiO2 of 30% with a PE EP of 5. Chest x-ray remains unchanged. Remains on IV Eraxis. Follow-up blood cultures are negative. The white cell count is 5.5 with a heme of 7.3. Platelet count is 192. BUN is 50 with a creatinine of 1.89. Dialysis is being performed periodically per nephrology. Urine output remains 5 cc every couple of hours. Awake and alert and communicating.. On 10/03/2024, the patient is clinically unchanged. Remains on propofol at 10 mcg/kg/min. Calm and comfortable. Responsive and awake. Evening was uneventful. Remains on a mechanical ventilator. Assist-control of 24, tidal volume of 400, FiO2 30% with a PEEP of 5. No blood gases from today. Follow-up chest x-ray from today is showing stable findings without any acute interval change and the patient continues to have persistent interstitial opacities bilaterally. The patient remains on TPN at rate of 85 cc an hour. Off pressor s. White cell count is 6 with hemoglobin 7.1 and a platelet count of 206. BUN 34 with a creatinine of 1.3. Sodium is at 133. Objective - Vital Signs Vital signs: Vital Signs Temp 98.5 F 10/03/24 04:00 Pulse 64 10/03/24 07:00 Resp 24 10/03/24 07:00 BP 137/66 10/03/24 06:30 Pulse Ox 95 10/03/24 06:30 FiO2 30 10/03/24 04:08 Intake & Output 10/02/24 10/03/24 10/03/24 18:59 06:59 18:59 Intake Total 2676 2204.209 98 Output Total 6425 855 0 Balance -3749 1349.209 98 Weight 92.2 kg Intake: IV 2276 1078 98 0.9 KVO 120 110 10 Anidulafungin 100 mg In 1100 Sodium Chloride 0.9% 100 ml @ 84 mls/hr IVPB DAILY [facility] Rx#:[id number] Pressure Bag 36 33 3 TPN 1020 935 85 Intake, IV Titration 1126.209 Amount Sodium Acetate 40 meq 986 Sodium Chloride 4Meq/ml Vial 60 meq Calcium Gluconate 0.5 gm Potassium Chloride 30 meq Magnesium Sulfate gm 0.5 gm In Amino Acids 5 %/ Dextrose 20 % 1,000 ml @ 85 mls/hr IV .BY DURATION ANNIE Rx#:[id number] propofoL 1,000 mg In 140.209 Empty Bag 1 bag @ 50 MCG/ KG/MIN 32.34 mls/hr IV . Q3H6M ANNIE Rx#:[id number] Hemodialysis 400 Output: Drainage 850 Medial Abdomen 850 Urine 25 5 0 Hemodialysis 3400 Hemodialysis Net Amount 3000 Other: Voiding Method Indwelling Catheter Indwelling Catheter ABP, PAP, CO, CI - Last Documented Arterial Blood Pressure - Exam No acute distress, currently connected to the ventilator. He has a tracheostomy tube in place. The patient has a #6 [address] tracheostomy tube in place. Lethargic, follows simple commands. Profoundly weak in all 4 extremities. The patient is currently on propofol for sedation. Able to communicate. HEENT examination is grossly unremarkable. Mucous membranes are moist. No oral lesions. Tracheostomy tube is in place. The patient has a right subclavian triple-lumen catheter in place Neck supple. Full range of motion. No adenopathy thyromegaly or neck vein distention. Cardiovascular examination reveals regular rhythm rate. S1-S2 normal. No S3 or S4. No discernible murmur noted. Lungs reveal clear breath sounds. Breath sounds are diminished bilaterally and scattered rhonchi heard throughout the lung craft bilaterally. Tracheostomy tube in place. Abdomen reveals an enterocutaneous fistula, normal bowel sounds. No tenderness. No masses. The patient has a left femoral dialysis catheter in place. Extremities are intact. No cyanosis clubbing and there is edema in his left lower extremity and upper extremities bilaterally. The patient has a below-knee amputation his right lower extremity. Skin is without rash or lesion. Neurologic examination is brief but nonfocal. He does have significant muscle atrophy, and contractures. He has a right below the knee amputation. Generalized profound weakness. Weak cough. Weak motor functions. - Labs CBC & Chem 7: 10/03/24 04:30 10/03/24 04:30 Labs: Abnormal Lab Results - Last 24 Hours (Table) 10/02/24 10/02/24 10/03/24 Range/Units 11:26 17:00 00:19 Sodium (137-145) mmol/L BUN (9-20) mg/dL Creatinine (0.66-1.25) mg/dL Glucose (74-99) mg/dL POC Glucose (mg/dL) 129 H 125 H 165 H (70-110) mg/dL Phosphorus (2.5-4.5) mg/dL 10/03/24 Range/Units 04:30 Sodium 133 L (137-145) mmol/L BUN 34 H (9-20) mg/dL Creatinine 1.30 H (0.66-1.25) mg/dL Glucose 125 H (74-99) mg/dL POC Glucose (mg/dL) (70-110) mg/dL Phosphorus 1.4 L (2.5-4.5) mg/dL Assessment and Plan Plan: Acute on chronic hypoxic respiratory failure. The patient remains on a id chanExelonix ventilator. The patient has bilateral pleural effusion and bilateral pneumonia with multidrug-resistant Pseudomonas aeruginosa. The patient was initially treated with ceftazidime/tazobactam and tobramycin combination. Repeat bronchoscopy on 09/07/2024 shows a positive Pseudomonas aeruginosa and corynebacterium in the BAL collected from the right lower lobe. The patient was subsequently treated with ceftolozane /tazobactam and vancomycin. There is also development of bilateral pleural effusion and the patient also has an area of consolidation in the right lung base. The respiratory status is stable. Chest x-ray findings remain stable. No changes in his overall respiratory status Sepsis with systemic fungemia and blood culture was positive for Bella parapsilosis, currently on IV Eraxis, initial blood culture was positive on 09/15/2024 and repeat cultures from 09/18/2024 was positive for Bella. Most recent blood culture from 09/22/2024 was negative. The patient remains he modynamically stable and the patient is afebrile. No significant leukocytosis. Repeat cultures are still pending. The patient will be completing a total of 2 weeks course of Eraxis post negative blood culture. Septic shock, recovered, currently off pressors Acute kidney injury, currently on hemodialysis, last hemodialysis session of hemodialysis was completed on 09/30/2024. Did not respond to any Lasix. History of severe tracheal stenosis, S/P tracheostomy. 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 Chronic anemia, with an acute drop in hemoglobin down to 6.8, posttransfusion with a unit of packed RBC. Hemoglobin is stable for now. History of DVT. History of CVA. History of right below-knee amputation. Previous history of asystole/cardiac arrest, 2021. History of Crohn's disease, S/P enterocutaneous fistula, diverting ileostomy. The patient remains on TPN for nutritional support. Plan: Continue ventilator support, no changes in his condition and night was uneventful. Patient is currently on no pressors and the patient remains hemodynamically stable Continue sedation with propofol 10 mcg/kg/min Continue IV Eraxis, to be completing a total of 2-week course following a negative blood culture. Another session of hemodialysis to be done today on 09/30/2024.hemodialysis to be completed today per nephrology Monitor hemoglobin and the patient was already transfused with a unit of packed RBC. Continues on TPN at 85 cc an hour, IV fluids or KVO Discontinued the stress dose hydrocortisone Heparin subcu for DVT prophylaxis fentanyl patch to 100 mcg on a daily basis for better pain control IV Protonix Monitor ileostomy output Nephrology for hemodialysis, urine output remains low Prognosis remain extremely poor. Prognosis remains extremely poor due to above-mentioned comorbidities. Will continue to follow and make further recommendation based on his progress. This evaluation was done at 35 minutes. Working on long-term placement in a facility with capability to undergo mecha nical ventilation and hemodialysis.
[2024-10-03 12:15] LABS: Glucose,Whole Blood 102 mg/dL (70-110)
--- NOTE | 2024-10-03 15:12 | P.PN ---
Subjective Progress Note Date: 10/03/24 Principal diagnosis: Reason for follow-up is sepsis and pneumonia/candidemia Patient is a 49-year-old male with a past medical history significant for CVA TIA DVT pneumonia history of complicated Crohn's disease in this patient who did have multiple abdominal surgeries patient also have a tracheostomy has been brought to the hospital with Generalized weakness did have a fever concerning for pneumonia on today's evaluation that is 10/03/2024, patient did have a temperature of 98.3 F this morning and denies having any chills, patient is on on the vent through the trach FiO2 stable at 30% no significant purulent secretion through the deep patient not requiring any pressor support mention feeling better. Patient did have a creatinine of 1.30 and a white count of 6.02 blood culture repeat has been negative Objective - Vital Signs Vital signs: Vital Signs Temp 98.3 F 10/03/24 08:00 Pulse 68 10/03/24 10:30 Resp 25 H 10/03/24 10:30 BP 133/65 10/03/24 10:30 Pulse Ox 96 10/03/24 10:30 FiO2 30 10/03/24 11:21 Intake & Output 10/02/24 10/03/24 10/03/24 18:59 06:59 18:59 Intake Total 2676 2204.209 492 Output Total 6425 855 25 Balance -3749 1349.209 467 Weight 92.2 kg Intake: IV 2276 1078 492 0.9 KVO 120 110 40 Anidulafungin 100 mg In 1100 100 Sodium Chloride 0.9% 100 ml @ 84 mls/hr IVPB DAILY ANNIE Rx#:[id number] Pressure Bag 36 33 12 TPN 1020 935 340 Intake, IV Titration 1126.209 Amount Sodium Acetate 40 meq 986 Sodium Chloride 4Meq/ml Vial 60 meq Calcium Gluconate 0.5 gm Potassium Chloride 30 meq Magnesium Sulfate gm 0.5 gm In Amino Acids 5 %/ Dextrose 20 % 1,000 ml @ 85 mls/hr IV .BY DURATION ANNIE Rx#:[id number] propofoL 1,000 mg In 140.209 Empty Bag 1 bag @ 50 MCG/ KG/MIN 32.34 mls/hr IV . Q3H6M ANNIE Rx#:[id number] Hemodialysis 400 Output: Drainage 850 Medial Abdomen 850 Urine 25 5 25 Hemodialysis 3400 Hemodialysis Net Amount 3000 Other: Voiding Method Indwelling Catheter Indwelling Catheter Indwelling Catheter ABP, PAP, CO, CI - Last Documented Arterial Blood Pressure - Exam GENERAL DESCRIPTION: Middle-age male intubated on the vent RESPIRATORY SYSTEM: Unlabored breathing , decreased breath sounds at bases HEART: S1 S2 regular rate and rhythm , ABDOMEN: Soft , no tenderness EXTREMITIES: Swelling to the leg - Labs CBC & Chem 7: 10/03/24 04:30 10/03/24 04:30 Labs: Abnormal Lab Results - Last 24 Hours (Table) 10/02/24 10/03/24 10/03/24 Range/Units 17:00 00:19 04:30 RBC (4.40-5.60) 10*6/uL Hgb (13.0-17.0) g/dL Hct (39.6-50.0) % MCHC (32.0-37.0) g/dL Sodium 133 L (137-145) mmol/L BUN 34 H (9-20) mg/dL Creatinine 1.30 H (0.66-1.25) mg/dL Glucose 125 H (74-99) mg/dL POC Glucose (mg/dL) 125 H 165 H (70-110) mg/dL Phosphorus 1.4 L (2.5-4.5) mg/dL Triglycerides (0.00-149.00) mg/dL 10/03/24 10/03/24 Range/Units 04:30 04:30 RBC 2.62 L (4.40-5.60) 10*6/uL Hgb 7.1 L (13.0-17.0) g/dL Hct 23.6 L (39.6-50.0) % MCHC 30.1 L (32.0-37.0) g/dL Sodium (137-145) mmol/L BUN (9-20) mg/dL Creatinine (0.66-1.25) mg/dL Glucose (74-99) mg/dL POC Glucose (mg/dL) (70-110) mg/dL Phosphorus (2.5-4.5) mg/dL Triglycerides 194.00 H (0.00-149.00) mg/dL Assessment and Plan (1) Pneumonia Current Visit: Yes Status: Acute Code(s): J18.9 - PNEUMONIA, UNSPECIFIED ORGANISM SNOMED Code(s): 621749475 (2) Sepsis Current Visit: Yes Status: Acute Code(s): A41.9 - SEPSIS, UNSPECIFIED ORGANISM SNOMED Code(s): 93161643 (3) Candidemia Current Visit: Yes Status: Acute Code(s): B37.7 - CANDIDAL SEPSIS SNOMED Code(s): 830851815 Plan: 1patient is a hospital with sepsis in this patient who did have fever tachycardia elevated lactic acid upon meeting criteria for SIRS/sepsis source likely pneumonia 2-patient is status post bronchoscopy lavage results currently growing Pseudomonas that is resistant to Avycaz and corynebacterium, sensitivity on corynebacterium is pending 3-patient with Pseudomonas pneumonia for the patient has completed his antibiot ic therapy 4-patient did have candidemia source is likely left chest wall PICC line which has been discontinued has been sent for the culture central line placed by small animal veterinarian, blood culture repeat on 09/18/2024 positive blood culture repeat 09/22/2024 so far negative. 5patient repeat blood culture from 09/22/2024 has been negative patient is cleared to get a new PICC line with the patient is currently waiting for, also the nursing staff reported placement of a permanent dialysis catheter 6-patient to continue with Eraxis last day of Eraxis will be 10/06/2024 and will monitor clinical course closely Dictation was produced using [employer] dictation software. please excuse any grammatical, word or spelling errors. Time with Patient: Less than 30
--- NOTE | 2024-10-03 17:30 | P.PN ---
Progress Note - Text Progress Note Date: 10/03/24 Chief Complaint: Short of breath 49-year-old patient, follows with Dr. Murcia History of paraplegia, home vent at night, tracheostomy multiple admissions to the ICU for recurrent pneumonia. Patient's previous bronchial cultures been positive for Pseudomonas. He was discharged recently on IV cefepime. Also has a history of Crohn's disease with previous colectomy diverting ileostomy. History of DVT for which patient is on subcu Lovenox. Also had drug-resistant MRSA Pseudomonas. Patient currently does not have areas significant trach secretions. He has continues TPN. Has a right BKA. He does have slight movement in the right hand. Able to follow commands by nodding his head. Answering questions. He is scared by his elder son open. I was also the DPOA. August 30: Overnight patient started having more secretions through the tracheostomy. Vancomycin was added. Also blood pressure running low patient was put on Levophed drip. Otherwise sinus rhythm. Patient remains on the ventilator. Will also send off stool for C. difficile. Also patient IV cefepime. Getting TPN. August 31: ICU. Patient had positive fluid balance. Was given IV Lasix earlier. Remains on Levophed. Spiking fevers. Getting TPN. Stool negative for C. difficile. Patient is growing MDRO Pseudomonas aeruginosa. ID is ordered IV Zerbaxa. Which is currently not available. Patient's friend is visiting him in the ICU. Light trach secretion September 01: ICU. On the ventilator. FiO2 45%. PEEP of 5. Continues to have light trach secretions. Sputum cultures again growing Pseudomonas. Zerbaxa was obtained and resumed. Blood pressure running low. On Levophed. Patient's younger son at the bedside. Colostomy working fine. Has been spiking fevers. Cooling blanket. Ice packs. September 02: ICU. Ventilator FiO2 45%. PEEP of 5. Continues to have some trach secretions. IV Zerbaxa IV tobramycin. TPN lipids to continue. Also Levophed. Patient started cooling blankets since yesterday for temperatures. Along with the nurse speech therapy records were reviewed from last few admissions. Patient with multiple MBS and bedside swallow eval. No trouble with swallowing. Patient put on a chopped diet. Thin liquids. Patient did spike a fever of 101.7 earlier today. Low ionized calcium. IV gluconate given. September 03: ICU. On ventilator FiO2 45%. PEEP of 5. Mild trach secretions. Getting IV TPN lipids. IV tobramycin. Zerbaxa was substituted to Avycaz. By ID. No fever per se since yesterday. For blood pressure patient is also on Levophed and vasopressin. September 04: ICU. On ventilator FiO2 45%. PEEP of 5. Clear trach secretions. Getting IV TPN lipids. IV tobramycin. And IV Avycaz. Remains afebrile.. On Levophed and vasopressin. Awake. 09/06/2024 Patient is seen and evaluated in ICU; remains on mechanical ventilator, actually his home ventilator, with settings of volume assist-control, rate 20, tidal volume 450, FiO2 45%, PEEP of 5. - patient has been refusing blood; no ABGs to. He is getting lactated Ringer's at 50 cc an hour, TPN at 65 cc an hour. - patient remains on the same antibiotics. - Labs reviewed which reveal white count 5.21, hemoglobin 7.9, hematocrit 27.5, and platelet count 64,000. Sodium 141, potassium 3.5, chlorides 102, CO2 32, BUN 25, and creatinine 0.35. Glucose is 152. Calcium is 8. Albumin is 2.1. -Chest x-ray is largely unchanged. Critical care managing mechanical ventilation; recommending to add scopolamine patch for increased secretion -Patient remains on Avycaz and tobramycin - Continue with current TPN 09/07 Patient remains in the ICU lethargic. He is s/p tracheostomy Overnight he was more hypoxic they have to increase PEEP to 8. Also has a lot of secretions when needed for secretions suctioning to try to become apneic per Staff. Patient currently receiving Avycaz and tobramycin. on TPN also 09/08 Patient remains in the ICU awake and alert status post tracheostomy. He has contractures of both upper and lower extremities He is complaining from pain in his lungs. He is status post flexible bronchoscopy and bronchoalveolar lavage yesterday. He has previous sputum culture positive for Pseudomonas currently covered with ceftazidime and tobramycin. He is also on Lovenox 90 mg 09/09 Patient still in the ICU on mechanical ventilation via tracheostomy. PEEP is 8.0 as is yesterday Also he spiked little fever to 100.7. IV vancomycin is added to tobramycin and ceftazidime He is getting also bronchoscopy follow-up culture results 09/10 Patient feels clinically the same, he still getting breathing via mechanical ventilation through his tracheostomy with PEEP of 8. Patient feels he is required suctioning through his tracheostomy tube. He denies chest pain or pain anywhere else he can communicate by head signs and gestures. Hemodynamically stable and afebrile hemoglobin 7.4 platelet count 73 Glucose is controlled potassium 3.3 He remains on broad-spectrum antibiotic Rocephin at this time tobramycin and IV vancomycin added yesterday because he had low-grade fever. He is getting TPN. IV fluid Ringer lactate was stopped and patient was started on IV Lasix 20 mg 3 times a day continue with therapeutic dose of Lovenox as well 09/11 Patient remains in the ICU Remains on mechanical ventilation via tracheostomy He status post bronchoalveolar lavage 2 days ago, culture is growing Pseudomonas aeruginosa and corynebacterium Patient remains on broad-spectrum antibiotics with IV vancomycin, tobramycin, ceftazidime On IV Lasix also is on therapeutic dose of Lovenox 90 mg twice daily No IV fluids 09/12 Patient remains in the ICU Clinically close to what he was over the last 2 days still getting oxygen via his tracheostomy He remains on broad-spectrum antibiotic with Ceftin this time and IV vancomycin. Also he is on IV Lasix 20 mg and therapeutic dose of Lovenox. 09/13 Patient remains in the ICU on mechanical ventilation via tracheostomy Patient looks better today, he breathing better Less secretion Fentanyl patch increased 09/14. Patient seen and examined. Patient continues to be on mechanical ventilation via trach mask. Currently on TPN. Currently on IV Zerbaxa and vancomycin 09/15. Patient seen and examined.Vital signs done showed the patient overnight, heart rate 106, blood pressure 107/40, currently on ventilation. Labs reviewed showed WBC 7.27, hemoglobin 7.5, sodium 148 on potassium 4.3, BUN 23, creatinine 0.47 09/16. Patient seen and examined labs reviewed showing WBC 5.45, hemoglobin 9.6, platelet count 131, sodium 146, potassium 4.1, BUN 20, creatinine 0.47. Continue small amount of Levophed. Currently on Zerbaxa and vancomycin. Currently on TPN September 17: ICU. Patient has taken a turn for the worse today. Significant thick white secretions from the trach. Sinus rhythm. Receiving TPN. Patient is on Levophed and vasopressor. Rather high dose. FiO2 [address] of 10. [address]. Ho earlier spoke to the patient/family. Remains full code September 18: ICU. Intubated FiO2 70 PEEP of 12. Sinus rhythm. Drips include IV propofol at 50 and Levophed at 0.13. Patient is off vasopressin. Patient secretions. Family at the bedside. September 19: ICU. Intubated. FiO2 50 and a PEEP of 12. Drips include IV Levophed and propofol. Also started on Lasix drip 10 mg an hour yesterday. Secretions present. September 20: ICU. Intubated. FiO2 50 and a PEEP of 12. Hemoglobin 6.3. Secondary to blood being given. Patient been on and off Levophed. On propofol. Lipids have been held. Continues with TPN. Lasix drip was discontinued. Lovenox has been held because of low hemoglobin. Unable anemia is felt to be combination of regular blood draws and possible element element of hemolysis from all the infection. No dark stool. Family at the bedside September 21: ICU. Intubated. Received 2 units of blood yesterday. Hemoglobin 7.6 today. Per nephrology renal replacement therapy. Dialysis access placed by Dr. Cadena. Patient earlier today on Levophed. Propofol. Getting TPN. Sinus rhythm. Urine output decreased September 22: ICU. Intubated. FiO2 15 of PEEP of 12. Seen earlier today. Dialysis being started. Been on IV Levophed propofol. Sinus rhythm. TPN. Sinus rhythm. September 23: ICU. Intubated. Due for another dialysis today. Saw the patient earlier today. Remains on IV Levophed propofol. Sinus rhythm. TPN. On fentanyl patch. September 24: ICU. Intubated. FiO2 40 and PEEP of 12. Remains on IV Levophed and propofol. IV TPN. Decrease trach secretions. IV antibiotics. Was due for dialysis earlier today. September 25: ICU. Intubated. FiO2 30%. Patient getting IV Levophed and propofol. IV TPN. Dialysis today. Receiving IV antibiotics. Does opens eyes occasionally. Some commands per nursing. September 26: ICU. Intubated. FiO2 30 and a PEEP of 8. Had 2 L hemodialysis removed yesterday. Getting hemodialysis today. Aiming for 2 to 3 L. Patient is on propofol. Currently Levophed on hold. Getting TPN. Patient is actually awake and following commands. Sinus rhythm. September 27: ICU. Intubated. FiO2 39 PEEP of 8. No dialysis today. Remains on IV Levophed propofol. TPN. There is a bedside. Patient asked me how is he doing. Had a lengthy information in terms of his guarded prognosis. Did tell him it is his choice about how he wishes to proceed. He needs to decide between treatment benefits versus in the suffering because of that entails from treatment and his recurrent infections etc. Especially in the context of decreased activity. Kidney failure, respiratory failure etc. September 28: ICU. Intubated. FiO2 30 and a PEEP of 8. For dialysis today. Off Levophed this morning. IV propofol. TPN. Some clear light to trach secretions. Colostomy working. Poor urine output. September 29: ICU. Intubated. IV propofol Levophed. TPN. Awake. Discussed with Dr. Holt. Prognosis very poor. Probably treatment is the point of getting futile. Patient needs about 34 more days to go to long-term ventilator setting. September 30: ICU. Intubated. IV propofol. Currently off Levophed. TPN. Getting dialysis today. Awake. IV antifungal. Given a unit of blood for hemoglobin of 6.9 October 01: ICU. Intubated. IV propofol. Remains on Levophed. TPN dose adjusted. Dialysis. IV aniedulefungin. Eyes open. Vent. FiO2 30%. PEEP 5 September 18: ICU. Intubated. IV propofol. Off Levophed. TPN. Dialysis today. IV aniedulefungin last day on October 06. Per ID. Some trach secretions clear October 03: ICU. Intubated. IV propofol. TPN. Dialysis schedule will now be Saturday. Next dialysis will be on coming Saturday. IV aniedulefungin last day-I October 06. Minimal urine output-5 to 10 cc an hour. Awake. Active Medications Albuterol/Ipratropium (Ipratropium-Albuterol 3 Ml Neb) 3 ml INHALATION RT-Q4H PRN PRN Reason: shortness of breath Last Admin: 10/02/24 15:05 Dose: 3 ml Artificial Tears (Artificial Tears-Hypromellose Drops 15 Ml Btl) 1 drops BOTH EYES QID PRN PRN Reason: Dry Eye(s) Last Admin: 09/04/24 12:52 Dose: 1 drops Chlorhexidine Gluconate (Chlorhexidine Gluconate 15 Ml Cup) 15 ml MUCOUS MEM BID ANNIE Last Admin: 10/03/24 09:21 Dose: 15 ml Darbepoetin Andry (Darbepoetin Andry 40 Mcg/0.4 Ml Syringe) 40 mcg SQ Q7D ANNIE Last Admin: 10/01/24 11:38 Dose: 40 mcg Dextrose/Water (Dextrose 50% Syringe 50 Ml) 25 ml IVP PER PROTOCOL PRN; Protocol PRN Reason: Hypoglycemia Dextrose/Water (Dextrose 50% Syringe 50 Ml) 50 ml IVP PER PROTOCOL PRN; Protocol PRN Reason: Hypoglycemia Fentanyl (Fentanyl 100mcg/Hr Patch) 1 patch TRANSDERM Q72H ANNIE; Protocol Last Admin: 10/01/24 11:38 Dose: 1 patch Heparin Sodium (Porcine) (Heparin Sodium,Porcine 5,000 Unit/Ml 1 Ml Vial) 5,000 unit SQ Q8HR ANNIE Last Admin: 10/03/24 09:20 Dose: 5,000 unit Hydromorphone HCl (Hydromorphone 1 Mg/Ml 1 Ml Syringe) 1 mg IVP Q3HR PRN PRN Reason: Moderate Pain (Scale 4 to 6) Last Admin: 10/03/24 15:02 Dose: 1 mg Anidulafungin 100 mg/ Sodium (Chloride) 130 mls @ 84 mls/hr IVPB DAILY ANNIE; Protocol Last Admin: 10/03/24 09:21 Dose: 84 mls/hr Propofol 1,000 mg/ IV Solution 100 mls @ 32.34 mls/hr IV .Q3H6M ANNIE; Protocol Last Admin: 10/03/24 15:20 Dose: 10 mcg/kg/min, 6.468 mls/hr Norepinephrine Bitartrate 8 mg (/ Sodium Chloride) 258 mls @ 6.513 mls/hr IV .Q24H ANNIE; Protocol Last Admin: 10/03/24 09:17 Dose: Not Given Sodium Acetate 40 meq/ Sodium Chloride 60 meq/ Calcium Gluconate 0.5 gm/ Potassium Chloride 30 meq/ Magnesium Sulfate 0.5 gm/ Amino Acids/Dextrose 1,056 mls @ 85 mls/hr IV .BY DURATION [facility] Stop: 10/03/24 17:59 Last Admin: 10/03/24 05:37 Dose: 85 mls/hr Parenteral Vitamin Supplement 10 ml/ Zinc/Copper/Manganese/Selenium 1 ml/ Sodium Acetate 40 meq/ Sodium Chloride 60 meq / Calcium Gluconate 0.5 gm/Potassium Chloride 30 meq/Magnesium Sulfate 0.5 gm/Amino Acids/Dextrose 1,067 mls @ 85 mls/hr IV .BY DURATION [facility] Stop: 10/03/24 17:59 Last Admin: 10/03/24 07:08 Dose: Not Given Sodium Acetate 40 meq/ Sodium Chloride 80 meq/ Calcium Gluconate 0.5 gm/ Potas sium Chloride 30 meq/ Magnesium Sulfate 0.5 gm/ Potassium Phosphate 15 mmol/ Amino Acids /Dextrose 1,066 mls @ 85 mls/hr IV .BY DURATION [facility] Parenteral Vitamin Supplement 10 ml/ Zinc/Copper/Manganese/Selenium 1 ml/ Sodium Acetate 40 meq/ Sodium Chloride 80 meq / Calcium Gluconate 0.5 gm/Potassium Chloride 30 meq/Magnesium Sulfate 0.5 gm/Potassium Phosphate 15 mmol/Amino Acids/Dextrose 1,077 mls @ 85 mls/hr IV .BY DURATION [facility] Insulin Human Lispro (Insulin Lispro (Humalog) 100 Unit/Ml 10 Ml Vl) 0 unit SQ Q6HR [facility]; Protocol Last Admin: 10/03/24 12:13 Dose: Not Given Lorazepam (Lorazepam 1 Mg/0.5 Ml Vial) 0.5 mg IV Q6HR PRN PRN Reason: Anxiety Last Admin: 09/15/24 18:26 Dose: 0.5 mg Miscellaneous Information (Pneumonia Protocol Utilized 1 Each Misc) 1 each PO ONCE PRN PRN Reason: Per Protocol Miscellaneous Information (Potassium Replacement Protocol 1 Each Misc) 1 each MISCELLANE DAILY PRN; Protocol PRN Reason: Per Protocol Miscellaneous Information (Magnesium Replacement Protocol 1 Each Misc) 1 each MISCELLANE DAILY PRN; Protocol PRN Reason: Per Protocol Naloxone HCl (Naloxone 0.4 Mg/Ml 1 Ml Vial) 0.2 mg IV Q2M PRN PRN Reason: Opioid Reversal Nystatin (Nystatin 100,000 Unit/Gm Powd 15 Gm) 1 applic TOPICAL BID [facility]; Protocol Last Admin: 10/03/24 12:14 Dose: 1 applic Ondansetron HCl (Ondansetron 4 Mg/2 Ml Vial) 4 mg IVP Q6HR PRN PRN Reason: Nausea And Vomiting Last Admin: 09/01/24 19:41 Dose: 4 mg Pantoprazole Sodium (Pantoprazole 40 Mg/10 Ml Vial) 40 mg IV DAILY ANNIE Last Admin: 10/03/24 09:20 Dose: 40 mg Petrolatum (Zinc Oxide Paste (Z-Guard) 1 Applic) 1 applic TOPICAL BID PRN; Protocol PRN Reason: Wound Healing Social history: Patient started smoking at the age of [age] 1 pack a day stopped in 2016. Nonambulatory. Is cared by his son over. Who is also the DPOA Physical examination: VITAL SIGNS: 98.2, 68, 23, 119 x 53, 97% on 30% GENERAL:, Eyes open EYES: Pupils equal. Conjunctiva loan l. HEENT: External appearance of nose and ears normal, oral cavity dry NECK: JVD unable to assess; masses not palpable. Tracheostomy HEART: First and second heart sounds are normal; no edema. LUNGS: Respiratory rate increased, decreased breath sounds, some crackles ABDOMEN: Soft, nontender, liver spleen not palpable, no masses palpable. Double barrel ostomy. PSYCH: Following simple commands MUSCULOSKELETAL: Right BKA. Left foot drop. Left hand contracture. Right hand also with contracture but able to have some movements NEUROLOGICAL: Cranial nerves grossly intact; no facial asymmetry, slight movement in the right arm. L INVESTIGATIONS, reviewed in the clinical context: October 02: White count 5.5 hemoglobin 7.3 potassium 4.6 creatinine 1.89 September 17: White count 20 hemoglobin 8.5 platelets 199 potassium 4.2 BUN 25 creatinine 0.4. ABG: pH 7.17 pCO2 79 PO277. September 02: White count 3.6 hemoglobin 9.7 platelets 130 potassium 3.9 BUN 23 creatinine 0.36 ionized calcium 4.3 TSH 2.7 Sputum culture: Pseudomonas aeruginosa: Sensitive to Zosyn, tobramycin, ceftazidime Sputum culture: Pseudomonas aeruginosa August 30: White count 3.5 hemoglobin 10.0 platelets 133 potassium 3.5 creatinine 0.36 August 29, 2024: White count 6.2 hemoglobin 12.3 platelets 216 sodium 128 potassium 3.1 BUN 50 creatinine 0.46 lactic acid 2.1 calcium 10.8 phosphorus 3.0 troponin I 0.016 UA: Negative for nitrite Influenza type A, type B, RSV, SARS-CoV-2: Not detected EKG tracing personally reviewed by me-normal sinus rhythm Chest x-ray film personally reviewed by me-right basilar infiltrate Previous labs: Sputum culture July 20, 2024: Pseudomonas aeruginosa Assessment plan: - basal pneumonia. Previous admission sputum was positive for Pseudomonas aeruginosa-:: Has received different antibiotics. Completed course of antibiotic Being followed by pulmonary, and ID - Candidemia likely source left chest wall PICC line that has been discontinued. And repeat blood cultures on September 22 negative. Line changes are being followed by ID IV Eraxis-last days October 06 per ID - Fluid overload Had received Lasix drip - Acute kidney injury from ATN from septic shock. And possibly vancomycin toxicity. Oliguric. Volume overload. First dialysis was on September 22.-Has been getting dialysis nearly daily. From now on dialysis schedule be Saturday - Metabolic alkalosis - Septic shock: Levophed has been on and off - Acute on chronic hypoxic and hypercapnic respiratory failure, vent dependent at night at home: On ventilator support. Propofol - Tracheostomy with trach collar -Acute normocytic anemia of chronic disease and hospital-acquired anemia from blood draws and possible hemolysis from infection Today received 6 units of blood - Thrombocytopenia likely from sepsis Follow - Right below-knee amputation - Chronic quadriparesis. Including left foot drop. Left arm contracture. Some right hand contracture. Some movement in the right arm - Crohn's disease with double barrel ostomy bag in place since 09/2021 - TPN and lipids Lipids have been held during propofol - Full code - DPOA, son BECKY Prognosis remains guarded. Dialysis Saturday and Saturday. Past Medical History Past Medical History: CVA/TIA, Deep Vein Thrombosis (DVT), Pneumonia Additional Past Medical History / Comment(s): Hx CVA in 2012, DVT R arm, Crohns. colostomy Bag placed in 09/2021. History of Any Multi-Drug Resistant Organisms: MRSA, Other MDRO Date of last positivie culture/infection: 07/20/24-Other MDRO; 12/14/23-MRSA MDRO Source:: Other MDRO - sputum, BAL; MRSA- nasal Past Surgical History: Bowel Resection, Cholecystectomy, Orthopedic Surgery Additional Past Surgical History / Comment(s): R BKA, trach with chronic home vent Past Anesthesia/Blood Transfusion Reactions: No Reported Reaction Additional Past Anesthesia/Blood Transfusion Reaction / Comment(s): recalled from previous admission Smoking Status: Never smoker
[2024-10-03 18:58] LABS: Glucose,Whole Blood 89 mg/dL (70-110)
[2024-10-03] MEDS: SODIUM CHLORIDE IV SCH (19:01)
[2024-10-03] MEDS: SODIUM ACETATE IV SCH (19:01)
[2024-10-03] MEDS: [UNRECOGNIZED DRUG - OTHER] IV SCH (19:01)
[2024-10-04 01:18] LABS: Glucose,Whole Blood 126 mg/dL (70-110)
[2024-10-04 04:41] LABS: HCT 26.0 % (39.6-50.0); HGB 7.9 g/dL (13.0-17.0); MCH 27.0 pg (27.0-32.0); MCHC 30.4 g/dL (32.0-37.0); MCV 88.7 fL (80.0-97.0); Platelet Count 195 10*3/uL (140-440); RBC 2.93 10*6/uL (4.40-5.60); RDW 20.1 % (11.5-14.5); WBC 5.91 10*3/uL (4.50-10.00)
[2024-10-04 04:52] LABS: African American GFR (CKD) 47 (>60 ml/min/1.73 sqM); Anion Gap 10 mmol/L; Blood Urea Nitrogen 59 mg/dL (9-20); Calcium 9.6 mg/dL (8.4-10.2); Carbon Dioxide 25 mmol/L (22-30); Chloride 97 mmol/L (98-107); Glucose 118 mg/dL (74-99); Magnesium 2.2 mg/dL (1.6-2.3); Non-African American GFR(CKD) 41 (>60 ml/min/1.73 sqM); Potassium 4.5 mmol/L (3.5-5.1); Sodium 132 mmol/L (137-145)
[2024-10-04 07:02] LABS: Glucose,Whole Blood 116 mg/dL (70-110)
--- NOTE | 2024-10-04 07:16 | XR ---
EXAMINATION TYPE: XR chest 1V portable DATE OF EXAM: 10/04/2024 5:24 AM COMPARISON: Multiple radiographs, with the most recent on 10/03/2024 TECHNIQUE: XR chest 1V portable Portable AP radiograph of the chest. CLINICAL INDICATION:Male, 49 years old with history of mechanically ventilated; FINDINGS: Lungs/Pleura: Elevation of the right hemidiaphragm. No pneumothorax. No sizable pleural effusion. Dif fuse interstitial opacities persist. Pulmonary vascularity: Unremarkable. Heart/mediastinum: Cardiomediastinal silhouette is prominent in size. Musculoskeletal: No acute osseous pathology. Other findings: Surgical clips within the right neck. Lines/Tubes: Endotracheal tube with distal tip 3.7 cm above the avery Left IJ approach dual-lumen hemodialysis catheter distal tip in the right atrium. Left-sided PICC line with distal tip at the superior cavoatrial junction. IMPRESSION: 1. Stable support lines and tubes. 2. Persistent diffuse interstitial opacities. [facility], , 10/04/2024 7:13 AM
[2024-10-04] MEDS: SODIUM PHOSPHATE 30 MMOL in DEXTROSE 5% IN WATER 250 ML IVPB ONE (08:34)
--- NOTE | 2024-10-04 10:07 | P.PN ---
Subjective Patient is seen for follow-up for acute kidney injury. Patient remains on the vent. He is awake. Started hemodialysis on 09/22/2024 for volume overload and worsening acute kidney injury Patient remains oliguric. FiO2 at 30% Volume status has improved. No significant issues today. Objective - Vital Signs Vital signs: Vital Signs Temp 98.1 F 10/04/24 08:00 Pulse 96 10/04/24 09:00 Resp 16 10/04/24 09:00 BP 111/49 10/04/24 09:00 Pulse Ox 93 L 10/04/24 09:00 FiO2 30 10/04/24 08:00 Intake & Output 10/03/24 10/04/24 10/04/24 18:59 06:59 18:59 Intake Total 8946.665 0359.077 303 Output Total 935 15 5 Balance 501.067 9695.077 298 Weight 93.2 kg Intake: IV 1276 520 48 0.9 KVO 120 120 30 Anidulafungin 100 mg In 100 Sodium Chloride 0.9% 100 ml @ 84 mls/hr IVPB DAILY ANNIE Rx#:[id number] Pressure Bag 36 60 18 TPN 1020 340 Intake, IV Titration 78.586 77.077 Amount propofoL 1,000 mg In 78.586 77.077 Empty Bag 1 bag @ 50 MCG/ KG/MIN 32.34 mls/hr IV . Q3H6M [facility] Rx#:[id number] TPN/PPN 680 255 TPN 680 255 Output: Urine 35 15 5 Stool 900 Other: Voiding Method Indwelling Catheter Indwelling Catheter Indwelling Catheter ABP, PAP, CO, CI - Last Documented Arterial Blood Pressure - Exam Patient is on the vent he is awake. Examination of the heart S1 and S2 Tracheostomy noted Examination of the lungs bilateral breath sounds are heard Abdomen is distended Examination of lower extremities shows right BKA and 2+ edema in the left leg - Labs CBC & Chem 7: 10/04/24 04:30 10/04/24 04:30 Labs: Abnormal Lab Results - Last 24 Hours (Table) 10/04/24 10/04/24 10/04/24 Range/Units 01:15 04:30 04:30 RBC 2.93 L (4.40-5.60) 10*6/uL Hgb 7.9 L (13.0-17.0) g/dL Hct 26.0 L (39.6-50.0) % MCHC 30.4 L (32.0-37.0) g/dL Sodium 132 L (137-145) mmol/L Chloride 97 L (98-107) mmol/L BUN 59 H (9-20) mg/dL Creatinine 1.90 H (0.66-1.25) mg/dL Glucose 118 H (74-99) mg/dL POC Glucose (mg/dL) 126 H (70-110) mg/dL Phosphorus 1.5 L (2.5-4.5) mg/dL 10/04/24 Range/Units 07:00 RBC (4.40-5.60) 10*6/uL Hgb (13.0-17.0) g/dL Hct (39.6-50.0) % MCHC (32.0-37.0) g/dL Sodium (137-145) mmol/L Chloride (98-107) mmol/L BUN (9-20) mg/dL Creatinine (0.66-1.25) mg/dL Glucose (74-99) mg/dL POC Glucose (mg/dL) 116 H (70-110) mg/dL Phosphorus (2.5-4.5) mg/dL Assessment and Plan Assessment: 1. Acute kidney injury secondary to ATN secondary to septic shock and vancomycin toxicity. Vancomycin level 49.3 on 09/19/2024. Patient remains oliguric with significant volume overload noted. Started hemodialysis on 09/22/2024. 2. Septic shock secondary to pneumonia and fungemia. 3. Acute blood loss anemia status post packed RBCs transfusion. Hemoglobin stable at 7.1 to 7.9 mg/dL. 4. Volume overload. 5. Chronic hypoxic and hypercapnic respiratory failure, home ventilator dependent. 6. History of cardiac arrest. 8. Status post right BKA. Plan: Next hemodialysis on 10/05/2024 Maintained on TPN Increase phosphorus in TPN Continue to monitor electrolytes.
--- NOTE | 2024-10-04 11:15 | P.PN ---
Subjective Progress Note Date: 10/04/24 This is a 49-year-old white male familiar to my service, history of paraplegia, home vent dependent, history of tracheostomy, patient had multiple admissions to the ICU for recurrent episodes of pneumonia and respiratory failure requiring ventilatory support. On his last admission patient was eventually discharged home on a home ventilator, and this was back on 08/04/2024. Patient was discharged home with a PICC line, patient was in the ER yesterday on 08/28 for abnormal labs mostly low potassium and low sodium discharged home however he came back today complaining of shortness of breath, has been ventilator dependent all along. Chest x-ray showed basically bibasilar opacities/atelectasis, doubt pneumonia, the findings in the left lower lobe are chronic. Patient did have previous history of pneumonia involving the left lower lobe and he had multiple bronchoscopies in the past. Bronchial cultures and sputum cultures have been positive in the past for mostly Pseudomonas aeruginosa. Patient was seen in the ER today, and he is already on cefepime for empiric coverage for potential left lower lobe pneumonia, patient had abnormal electrolytes with relatively low sodium low potassium, no leukocytosis, normal renal profile, blood pressure was soft, and he was given fluid boluses. Lactic acid was 2.1, D-dimer is normal, patient was admitted, and this consult was initiated. 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 Patient was seen today on 08/30/2024, patient continues to have intermittent episodes of fever with Tmax of 102, patient required norepinephrine and he remains on norepinephrine at 0.04 mcg/kg/min remains on LR at 130 cc/h remains on his home ventilator at tidal volume of 450 rate of 20 FiO2 45% and PEEP of 5. Seems comfortable, not in distress, his WBC is 3.5 hemoglobin 10.0 electrolytes are normal renal profile is normal potassium is borderline low. Patient remains on cefepime, vancomycin was added because of his previous history of MRSA, and is on cefepime for previous history of pseudomonal infection and now that the patient may be septic it is more of a reason to broaden the spectrum of antibiotics coverage with cefepime and vancomycin. Sputum cultures and blood cultures are pending. Patient does have history of pseudomonal and history of MRSA infections, and I discontinued his Zithromax today replace Zithromax with vancomycin. Viral screen is negative Legionella antigen is negative. Chest x- ray is relatively unchanged continues to show bibasilar opacities atelectasi s/pneumonia. Progress note dated August 31, 2024. The patient is seen today in room 252. The patient was admitted a couple days ago, to the intensive care unit. The patient is currently on mechanical ventilator, actually his home ventilator. He is on volume assist-control, rate 20, tidal volume 450, FiO2 45% PEEP of 5. The patient is getting lactated Ringer's at 130 cc an hour, TPN at 91 cc an hour, norepinephrine at 8 mcg/min. Doppler of the left upper extremity was negative. He continues on Zerbaxa, and vancomycin. We will check a procalcitonin level. Cultures thus far are negative. He does have a previous history of methicillin-resistant Staph aureus infection, and pseudomonal infections. White count was 2.21, hemoglobin 9.3, hematocrit 32, platelet count 1 61,000. D-dimer was 5.78. Sodium 132, potassium 4.3, chlorides 106, CO2 21, BUN 18, creatinine 0.28. Glucose was 141. Calcium 7.8. C. difficile study was negative. Urine Legionella antigen was negative. Microbiologic studies are currently negative. Chest x-ray shows bibasilar airspace opacities, possibly consistent with pneumonia. 09/01/24 - The patient is seen today in room 252. Admitted to the hospital and the intensive care unit on 08/29/2024. The patient is currently on mechanical ventilator, his one from home. He is on volume assist control, rate of 20, tidal volume of 450, FiO2 45% and PEEP of 5. He currently has LR running at 50 cc/h, TPN at 91 cc/h, Zerbaxa and tobramycin. Chest Xray done this morning showed stable airspace opacities. Cultures are positive for pseudomonas aeruginosa, awaiting sensitivities. WBCs 2.69, Hgb 8.9, Hct 31.5, PLT 153, Na 135, K 3.4, Cl 109, HCO3 19, BUN 22, Cr 0.34, Phos 2.4. 09/02/24 - He is seen today in room 252. Admitted to the hospital and ICU on 08/29/24. He continues on mechanical ventilator, his one from home. He remaines on volume assist control, rate of 20, tidal volume of 450, FiO2 45% and PEEP of 5. He continues to have LR running at 50 cc/h, TPN at 91 cc/h, norepinephrine at 0.13 mcg/kg/min, Zebraxa and Tobramycin. Chest XRay this morning showed stable airspace opacities. Continue to await sensitivity of pseudomonas sputum culture. Lab work shows WBCs 3.64, Hgb 9.7, Hct 33.5, PLT 130, Na 133, K 3.9, bicarb 21, BUN 23, Cr 0.36, Ca 7.8, Mg 2.4, Albumin 2.3. 09/03/24 - He is seen in room 252. Admitted to the hospital and ICU on 08/29/24. He continues on mechanical ventilator, his one from home. He remaines on volume assist control, rate of 20, tidal volume of 450, FiO2 45% and PEEP of 5. He continues to have LR running at 50 cc/h, TPN at 91 cc/h, norepinephrine at 0.24 mcg/kg/min, Avycaz and Tobramycin. Zebraxa was discontinued as there was no reported sensitivity to it. Lab work shows WBCs 9.40, Hgb 8.8, Hct 30.6, PLT 100, Na 130, K 3.6, bicarb 23, BUN 25, Cr 0.51, Ca 7.8, Ionized Ca 4.6, Phos 3.3, Mg 2.1, TSH 2.710 and random cortisol 13.1. 09/04/24 - He is seen in room 252. Admitted to the hospital and ICU on 08/29/24. He continues on mechanical ventilator, his one from home. He remaines on volume assist control, rate of 20, tidal volume of 450, FiO2 45% and PEEP of 5. He continues to have LR running at 50 cc/h, TPN at 91 cc/h, norepinephrine at 0.24 mcg/kg/min, Avycaz and Tobramycin. Lab work shows sodium 133, potassium 3.5, bicarb 24, BUN 27, creatinine 0.47, calcium 7.9, ionized calcium 4.6, magnesium 1.9, phosphorus 3.0, total bilirubin 1.7, AST 57, ALT 45, alkaline phosphatase 99. Progress note dated September 05, 2024. 49-year-old male well-known to our service. He is seen today in room 252. He continues on volume assist-control, rate 20, tidal 450, FiO2 45%, PEEP of 5. The patient has refused blood gases. Currently, he is getting TPN at 65 cc an hour, norepinephrine at 1 mcg/min, LR at 50 cc/h. Clinically, the patient is doing well. His chest x-ray remains about the same. Yesterday he was on a hig her dose of norepinephrine, and also was on vasopressin. Both have been weaned off. Current labs include a sodium 136, potassium 4.1, chlorides 101, CO2 28, BUN 30, creatinine 0.37. Glucose 153. Albumin is 2.2. Previous sputum, from August 29 with positive for Pseudomonas aeruginosa. Chest x-ray is largely unchanged. Progress note dated September 06, 2024. 49-year-old male again seen today in the intensive care unit, room 252. He remains on mechanical ventilator, actually his home ventilator, with settings of volume assist-control, rate 20, tidal volume 450, FiO2 45%, PEEP of 5. No blood gases today. The patient has been refusing. He is getting lactated Ringer's at 50 cc an hour, TPN at 65 cc an hour. He continues on the same antibiotics. White count 5.21, hemoglobin 7.9, hematocrit 27.5, and platelet count 64,000. Sodium 141, potassium 3.5, chlorides 102, CO2 32, BUN 25, and creatinine 0.35. Glucose is 152. Calcium is 8. Albumin is 2.1. Chest x-ray is largely unchanged. 09/07/2024, the patient remains on a mechanical ventilator. The patient is having excessive respiratory secretions. Attempts to suction this patient has failed as the secretions are quite thick and the patient has had episodes of bradycardia while suctioning. Remains on TPN at 65 cc an hour and lactated Ringer at 50 cc an hour. Remains on assist-control mode mechanical ventilation at rate of 20, tidal volume of 450, FiO2 of 100% with a PEEP of 8. Patient has refused to have an arterial line. The patient has refused blood gases. Urine output is adequate. No hypotension. He has a double-lumen catheter in his left chest and the left forearm IV line.He is afebrile. He continues to have multidrug-resistant Pseudomonas in his sputum. The patient remains on ceftazidime/avibactam per IDs recommendations. He is also on IV tobramycin. Remains on stress dose hydrocortisone. Blood work shows a white cell count of 6.9, hemoglobin 7.9 and a platelet count of 90. BUN is 24 with a creatinine of 0.33. Sodium is 143 and a potassium level of 3.7. Bicarb level is at 33. Output from the ileostomy bag is high and the net fluid balance is +1.2 L over the past 24 hours. Airway pressures on the mechanical ventilator are elevated with an elevated peak airway pressure around 36 consistent with excessive respiratory secretions and mucous plugs. Chest x-ray shows atelectatic changes infiltrates in lung bases along with some scattered hazy bilateral pulmonary infiltrates. 09/08/2024, the patient is being seen for a follow-up. On today's evaluation, the patient is awake on no sedation. His chest x-ray showing worsening bilateral pulmonary filtrates. Running low-grade fever. A bronchoscopy in the BAL was done yesterday and the results are still pending for now. He remains on assist-control mode at rate of 20, tidal volume of 450, FiO2 of 60% with a PEEP of 8. He remains on lactated Ringer at rate of 50 cc an hour and TPN at rate of 65 cc an hour. He remains on IV Lasix. He remains on ceftazidime/avibactam regarding his multidrug-resistant Pseudomonas. He is also on tobramycin. The white cell count is 6 with a hemoglobin 7.7 and platelet count of 77. Sodium is at 143, BUN 24 with a creatinine of 0.2. Serum bicarb is at 34. LFTs are within normal limits. The patient had no blood cares for today. He has refused blood gases. On a separate note, cardiology was consulted regarding the episodes of bradycardia that the patient is encountering. Upon sectioning, the patient is having episodes of cardiac block, likely third-degree AV block that last around 5 to 8 seconds. Patient was taken off the scopolamine patch. On 09/09/2024, the patient remains on a mechanical ventilator. He is complaining of shortness of breath even while being on the mechanical ventilator. Repeat chest x-ray was done today and the patient has developed diffuse infiltrates bilaterally greater in the lung bases and there is interval worsening in the chest x-ray findings. The bronchoalveolar lavage that was obtained earlier on 09/07/2024 showed Pseudomonas aeruginosa and corynebacterium. The patient remains on ceftazidime avibactam and tobramycin. Vancomycin was also added. He is running a low-grade fever with a Tmax of 100.7. He remains on assist-control mode mechanical ventilation at rate of 20, tidal volume of 450, FiO2 of 60% with a PEEP of 8. The patient did not have a blood gas today. Fluid balance is +2.6 L over the past 24 hours. He is currently on IV Lasix 20 mg IV push every 8 hours. The patient is also on TPN at rate of 65 cc an hour and lactated Ringer at rate of 50 cc an hour. The white cell count is 4.6 with a heme of 7.3 and a platelet count of 72. Sodium is at 144, bicarb is at 34, BUN 22 with a creatinine of 0.38. Chloride is 103. Calcium levels at 7.4, phosphorus 3.6, LFTs are normal. Albumin levels at 2.1. Arousable, able to communicate. No significant cardiac arrhythmias over the past 24 hours. 09/10/2024, patient is awake and alert and communicating. Continues to have on and off episodes of shortness of breath while being on a mechanical ventilator. Oxygenation is borderline and the patient's pulse ox remains low. Unable to obtain any blood gases as the patient has declined arterial blood draws. He is on assist-control mode rate of 20, tidal volume of 450, FiO2 of 70% with a PEEP of 10. Remains on TPN at rate of 35 cc an hour and lactated Ringer at rate of 50 cc an hour. Fluid balance is +2.6 L over the past 24 hours.the white cell count is 6.3, hemoglobin is at 7.4, platelet count is a 73 and the patient remains on therapeutic dose of Lovenox. The patient's sodium levels at 143, K is at 3.3, bicarb is at 40 with a BUN of 21 and a creatinine of 0.8. Blood sugar is 140. The most recent lavage from the right lower lobe was positive for Pseudomonas aeruginosa and corynebacterium. The patient remains on a combination of ceftazidime antibacterial combination, tobramycin and IV vancomycin. Output from ileostomy is in order of 800 cc over the past 8 hours. Remains on IV Lasix. Chest x-ray is unchanged and it shows bilateral pulmonary infiltrates, diffuse increased interstitial lung markings, lines and catheters are in place, tracheostomy tube is in place. 09/11/2024, the patient is stable, awake and alert and communicating. Remains on TPN for nutritional support with rate of 75 cc an hour. Remains on the same mechanical ventilator settings and the patient remains on assist-control mode at rate of 20, tidal volume of 450, FiO2 of 60% with a PEEP of 8. Fluid balance is -50 cc over the past 24 hours and the patient remains on IV Lasix 20 mg every 8 hours. The biotic coverage remains unchanged and the patient remains on a combination of ceftazidime IV Bactrim, tobramycin and vancomycin. The white cell count is at 4.7 with a hemoglobin of 7.1 and a platelet count of 89. BUN is 20 with a creatinine of 0.25. Sodium levels at 142. Serum iron levels at 16. Vancomycin trough is at 17. Follow-up chest x-ray from today shows stable bilateral pulmonary filtrates and pleural effusions bilaterally. Tracheostomy tube remains in good location. The patient continues to have high output through the ileostomy. Currently afebrile. No cardiac arrhythmias have been noted. 09/12/2024, patient is resting comfortably in bed. Remains on a mechanical ventilator. Unable to wean. Chest x-ray still showing bilateral pulmonary filtrates consistent with pneumonia. The patient is on assist-control mode at rate of 20, tidal volume of 450, FiO2 of 50% and a PEEP of 8. Remains negative fluid balance as the patient is being diuresed with IV Lasix. Fluid balance is -1 L over the past 24 hours. Remains on Lasix 20 mg IV push every 8 hours. Hemoglobin from this morning was 5.8. Repeat hemoglobin came back at 7.4. Platelet counts are stable. No evidence of any GI bleeding. Remains on Lovenox therapeutic dose. Remains on TPN at rate of 75 cc an hour. White cell count is at 5, platelet count is at 93, BUN is 25 with a creatinine 0.4. Sodium levels at 144 and a potassium level is at 3.6. Ileostomy still functioning. Remains on broad-spectrum antibiotics. Remains on ceftolozane/tazobactam. Remains on vancomycin. Remains on stress dose hydrocortisone. 09/13/2024, the patient is being seen for a follow-up. No change in his condition over the past 24 hours. Remains on a mechanical ventilator. Awake and alert and communicating. Started on fentanyl patch and his pain is under better control and the patient is using fentanyl patch 75 mcg every 72 hours. Remains assist-control mechanical ventilation at rate of 20, tidal volume of 450, FiO2 50% with a PEEP of 8. Chest x-ray from today shows stable bilateral pulmonary infiltrates, no significant change compared to yesterday and the tracheostomy tube remains in place. The patient continues to have multifocal airspace disease. Fluid balance is +30 cc over the past 24 hours. TPN is running at a rate of 75 cc an hour. Afebrile. Hemoglobin in this morning was at 5.8. Recheck was 6.1. The platelet count is 817. Sodium is at 148, potassium 3.2, BUN 26 with a creatinine of 0.44. Serum bicarb is at 38. The patient has a triglyceride level of 152. Remains on ceftolozane tazobactam and vancomycin. On 09/28/2024, the patient is being seen for a follow-up. The patient remains ventilator dependent. This morning, the patient remains on a assist-control mode of mechanical ventilation at rate of 36, tidal volume of 400, FiO2 30% with a PEEP of 5. The blood gases from today showed pH of 7.57 with a PCO2 of 30 and PO2 of 70. Chest x-ray shows ongoing diffuse interstitial infiltrates and wor sening airspace disease in the right lung base and the patient is having limited amount of respiratory secretions. Currently on propofol running at 20 mcg/kg/min. 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 Blood culture was positive on 09/15/2024 and 09/18/2024 and the patient is currently on Eraxis. Repeat blood culture on 09/22/2024 was negative. ID is on the case. Lines were all removed and the patient has a right subclavian triple-lumen catheter: Inserted on 09/17/2024. The patient is currently on no pressors. The patient also has developed an acute kidney injury. The patient was started on hemodialysis on 09/22/2024 and the patient has a left femoral triple-lumen catheter in place. Last hemodialysis session was on 09/26/2024 and another hemodialysis session is to follow this morning. He remains on TPN running at 33 cc an hour. Arousable. Sedated. Blood work from today shows a BUN of 28 with a creatinine of 1.4. Sodium is at 129 and potassium is at 4.4. WBC count is 6 with a heme of 7.1 platelet count of 206. Afebrile for now. Ileostomy continues to show increased output. On 09/29/2024, the patient is being seen for a follow-up. On today's evaluation, the patient is arousable and awake and following commands. He is on propofol running at 20 mcg/kg/min. Remains on a mechanical ventilator and the patient is calm and comfortable with limited respiratory secretions. He is on assist- control at rate of 24, tidal volume of 400, FiO2 of 30% with a PEEP of 8. pH is at 7.44 with a [id number] and PO2 of 80. Chest x-ray remains unchanged. Tracheostomy tube is in location. Remains on TPN for nutritional support arriving at 55 cc an hour. Remains on low-dose norepinephrine running at 0.01 mcg/kg/min. The patient underwent hemodialysis on 09/28/2024 with a total of 2 L of ultrafiltration. No urine output for now. Lab work is stable. The white seconds at 5.2 with a hemoglobin of 7 and a platelet count of 206. Electrolytes all within normal limits. Potassium levels are 3.6. Sodium is 134. BUN is 20 with a creatinine of 1.1. He remains on IV Eraxis. Most recent blood cultures been negative. Afebrile. 09/30/2024, the patient is being seen for a follow-up. This morning, the patient is calm and comfortable and the patient remains on propofol running at 10 mcg/kg/min. Patient is on no pressors. The patient has a left femoral hemodialysis catheter in place and his last hemodialysis session was on 09/26/2024 and the patient will undergo another session today. Urine output is in the order of 0 to 5 cc an hour. The patient will be also receiving a dose of Lasix 80 mg IV push per nephrology following hemodialysis. The patient is succe ssful insertion of the PICC line in the left upper extremity. Morning hemoglobin was 6.9 and the patient was given a unit of packed RBC. No evidence of any acute bleeding. Remains on a mechanical ventilator on assist-control mode rate of 24, tidal volume of 400, FiO2 30% with a PEEP of 6. Blood gas showed a pH of 7.45 with a [id number] and PO2 of 94. The chest x-ray shows no significant interval change. Afebrile. Hemodynamically stable. Ileostomy is functional. TPN is running at a rate of 55 cc an hour. Rest of the labs noted in the patient's hemoglobin posttransfusion came back at 8.2. The white cell count 6.6. Platelet count is at 220. BUN 36 with a creatinine of 1.55 and the sodium is 132 and a potassium level is at 4.1. On 10/01/2024, the patient is being seen for a follow-up. Condition is essentially unchanged compared to yesterday. Remains on propofol running at 10 mcg. Remains on assist-control mode of mechanical ventilation at rate of 24, tidal volume of 400, FiO2 of 30% with a PEEP of 5. pH is 7.45 with a PCO2 of 45 and PO2 of 67. Repeat chest x-ray from today shows no significant interval change. Overall appearance is similar and the patient has pulm vascular congestion and edema is slightly worse on the right compared to the left with possible development of a right-sided pleural effusion. He is not producing any urine. He has not responded to IV Lasix. He is less hemodialysis session was yesterday. He remains on IV Eraxis. Follow-up blood cultures have been sent. Their white cell count is 6.4 with a hemoglobin 7.6 and platelet count of 212. BUN 27 with a creatinine of 1.3 and sodium is at 134. The patient is currently on no pressors. Afebrile. Hemodynamically stable. Ileostomy is functional. Remains on TPN at a rate of 55 cc an hour. On 10/02/2024, the patient is being seen for a follow-up. The patient resting comfortably in bed and the patient remains on propofol running at 10 mcg/kg/min. The patient is also on TPN at rate of 85 cc an hour. IV fluids are currently at KVO. Fluid balance is +1 L. Remains on mechanical ventilator on the same ventilator setting with a tidal volume of 400, rate of 24, FiO2 of 30% with a PE EP of 5. Chest x-ray remains unchanged. Remains on IV Eraxis. Follow-up blood cultures are negative. The white cell count is 5.5 with a heme of 7.3. Platelet count is 192. BUN is 50 with a creatinine of 1.89. Dialysis is being performed periodically per nephrology. Urine output remains 5 cc every couple of hours. Awake and alert and communicating.. On 10/03/2024, the patient is clinically unchanged. Remains on propofol at 10 mcg/kg/min. Calm and comfortable. Responsive and awake. Evening was uneventful. Remains on a mechanical ventilator. Assist-control of 24, tidal volume of 400, FiO2 30% with a PEEP of 5. No blood gases from today. Follow-up chest x-ray from today is showing stable findings without any acute interval change and the patient continues to have persistent interstitial opacities bilaterally. The patient remains on TPN at rate of 85 cc an hour. Off pressor s. White cell count is 6 with hemoglobin 7.1 and a platelet count of 206. BUN 34 with a creatinine of 1.3. Sodium is at 133. On 10/04/2024, there is absolutely no change in the patient's condition. The patient is resting comfortably on propofol low-dose at 10 mcg. He remains on mechanical ventilator, unable to wean him off the mechanical ventilator and is vent dependent with an assist-control mode at rate of 24, tidal volume of 400, FiO2 of 30% and the PEEP of 5. Chest x-ray remains unchanged. The patient is afebrile and hemodynamically stable, completing the course of Eraxis. Remains on TPN for nutritional support rate of 55 cc an hour. Urine output is minimal and undergoing periodic hemodialysis. The white cell count is 5.9, hemoglobin 7.9, BUN is 59 with a creatinine of 1.9. Potassium levels of 4.5. Next hemodialysis session is on 10/05/2024. Objective - Vital Signs Vital signs: Vital Signs Temp 98.1 F 10/04/24 04:00 Pulse 96 10/04/24 07:00 Resp 27 H 10/04/24 07:00 BP 95/42 10/04/24 07:00 Pulse Ox 97 10/04/24 07:00 FiO2 30 10/04/24 07:42 Intake & Output 10/03/24 10/04/24 10/04/24 18:59 06:59 18:59 Intake Total 6242.226 8544.077 101 Output Total 935 15 Balance 708.288 3524.077 101 Weight 93.2 kg Intake: IV 1276 520 16 0.9 KVO 120 120 10 Anidulafungin 100 mg In 100 Sodium Chloride 0.9% 100 ml @ 84 mls/hr IVPB DAILY ANNIE Rx#:[id number] Pressure Bag 36 60 6 TPN 1020 340 Intake, IV Titration 78.586 77.077 Amount propofoL 1,000 mg In 78.586 77.077 Empty Bag 1 bag @ 50 MCG/ KG/MIN 32.34 mls/hr IV . Q3H6M ANNIE Rx#:[id number] TPN/PPN 680 85 TPN 680 85 Output: Urine 35 15 Stool 900 Other: Voiding Method Indwelling Catheter Indwelling Catheter ABP, PAP, CO, CI - Last Documented Arterial Blood Pressure - Exam No acute distress, currently connected to the ventilator. He has a tracheostomy tube in place. The patient has a #6 Shiley tracheostomy tube in place. Lethargic, follows simple commands. Profoundly weak in all 4 extremities. The patient is currently on propofol for sedation. Able to communicate. HEENT examination is grossly unremarkable. Mucous membranes are moist. No oral lesions. Tracheostomy tube is in place. The patient has a right subclavian triple-lumen catheter in place Neck supple. Full range of motion. No adenopathy thyromegaly or neck vein distention. Cardiovascular examination reveals regular rhythm rate. S1-S2 normal. No S3 or S4. No discernible murmur noted. Lungs reveal clear breath sounds. Breath sounds are diminished bilaterally and scattered rhonchi heard throughout the lung craft bilaterally. Tracheostomy tube in place. Abdomen reveals an enterocutaneous fistula, normal bowel sounds. No tenderness. No masses. The patient has a left femoral dialysis catheter in place. Extremities are intact. No cyanosis clubbing and there is edema in his left lower extremity and upper extremities bilaterally. The patient has a below-knee amputation his right lower extremity. Skin is without rash or lesion. Neurologic examination is brief but nonfocal. He does have significant muscle atrophy, and contractures. He has a right below the knee amputation. Generalized profound weakness. Weak cough. Weak motor functions. - Labs CBC & Chem 7: 10/04/24 04:30 10/04/24 04:30 Labs: Abnormal Lab Results - Last 24 Hours (Table) 10/03/24 10/03/24 10/04/24 Range/Units 04:30 04:30 01:15 RBC 2.62 L (4.40-5.60) 10*6/uL Hgb 7.1 L (13.0-17.0) g/dL Hct 23.6 L (39.6-50.0) % MCHC 30.1 L (32.0-37.0) g/dL Sodium (137-145) mmol/L Chloride (98-107) mmol/L BUN (9-20) mg/dL Creatinine (0.66-1.25) mg/dL Glucose (74-99) mg/dL POC Glucose (mg/dL) 126 H (70-110) mg/dL Phosphorus (2.5-4.5) mg/dL Triglycerides 194.00 H (0.00-149.00) mg/dL 10/04/24 10/04/24 10/04/24 Range/Units 04:30 04:30 07:00 RBC 2.93 L (4.40-5.60) 10*6/uL Hgb 7.9 L (13.0-17.0) g/dL Hct 26.0 L (39.6-50.0) % MCHC 30.4 L (32.0-37.0) g/dL Sodium 132 L (137-145) mmol/L Chloride 97 L (98-107) mmol/L BUN 59 H (9-20) mg/dL Creatinine 1.90 H (0.66-1.25) mg/dL Glucose 118 H (74-99) mg/dL POC Glucose (mg/dL) 116 H (70-110) mg/dL Phosphorus 1.5 L (2.5-4.5) mg/dL Triglycerides (0.00-149.00) mg/dL Assessment and Plan Plan: Acute on chronic hypoxic respiratory failure. The patient remains on a mechanical ventilator. The patient has bilateral pleural effusion and bilateral pneumonia with multidrug-resistant Pseudomonas aeruginosa. The patient was in itially treated with ceftazidime/tazobactam and tobramycin combination. Repeat bronchoscopy on 09/07/2024 shows a positive Pseudomonas aeruginosa and corynebacterium in the BAL collected from the right lower lobe. The patient was subsequently treated with ceftolozane /tazobactam and vancomycin. There is also development of bilateral pleural effusion and the patient also has an area of consolidation in the right lung base. The respiratory status is stable. Chest x-ray findings remain stable. No changes in his overall respiratory status. Unable to wean off the mechanical ventilator. Will keep the same vent settings. Chest x-ray findings are stable. Sepsis with systemic fungemia and blood culture was positive for Bella parapsilosis, currently on IV Eraxis, initial blood culture was positive on 09/15/2024 and repeat cultures from 09/18/2024 was positive for Bella. Most recent blood culture from 09/22/2024 was negative. The patient remains hemodynamically stable and the patient is afebrile. No significant leukocytosis. Repeat cultures are still pending. The patient will be com pleting a total of 2 weeks course of Eraxis post negative blood culture. Septic shock, recovered, currently off pressors Acute kidney injury, currently on hemodialysis, last hemodialysis session of hemodialysis was completed on 09/30/2024. Did not respond to any Lasix. Next hemodialysis session was on 10/05/2024. Start him on hemodialysis on 09/22/2024. History of severe tracheal stenosis, S/P tracheostomy. 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 Chronic anemia, with an acute drop in hemoglobin down to 6.8, posttransfusion with a unit of packed RBC. Hemoglobin is stable for now. History of DVT. History of CVA. History of right below-knee amputation. Previous history of asystole/cardiac arrest, 2021. History of Crohn's disease, S/P enterocutaneous fistula, diverting ileostomy. The patient remains on TPN for nutritional support. Plan: Continue ventilator support, no changes in his condition and night was uneventful. Patient is currently on no pressors and the patient remains hemodynamically stable Continue sedation with propofol 10 mcg/kg/min Continue IV Eraxis, to be completing a total of 2-week course following a negative blood culture. Another session of hemodialysis to be done today on 09/30/2024.hemodialysis to be completed today per nephrology Monitor hemoglobin and the patient was already transfused with a unit of packed RBC. Continues on TPN at 85 cc an hour, IV fluids or KVO Heparin subcu for DVT prophylaxis fentanyl patch to 100 mcg on a daily basis for better pain control IV Protonix Monitor ileostomy output Nephrology for hemodialysis, urine output remains low, next modality session is on 10/05/2024 Prognosis remain extremely poor. Prognosis remains extremely poor due to above-mentioned comorbidities. Will continue to follow and make further recommendation based on his progress. This evaluation was done at 35 minutes. Working on long-term placement in a facility with capability to undergo mechanical ventilation and hemodialysis. Time with Patient: Greater than 30
[2024-10-04 17:50] LABS: Glucose,Whole Blood 134 mg/dL (70-110)
--- NOTE | 2024-10-04 17:53 | P.PN ---
Progress Note - Text Progress Note Date: 10/04/24 Chief Complaint: Short of breath 49-year-old patient, follows with Dr. Murcia History of paraplegia, home vent at night, tracheostomy multiple admissions to the ICU for recurrent pneumonia. Patient's previous bronchial cultures been positive for Pseudomonas. He was discharged recently on IV cefepime. Also has a history of Crohn's disease with previous colectomy diverting ileostomy. History of DVT for which patient is on subcu Lovenox. Also had drug-resistant MRSA Pseudomonas. Patient currently does not have areas significant trach secretions. He has continues TPN. Has a right BKA. He does have slight movement in the right hand. Able to follow commands by nodding his head. Answering questions. He is scared by his elder son open. I was also the DPOA. August 30: Overnight patient started having more secretions through the tracheostomy. Vancomycin was added. Also blood pressure running low patient was put on Levophed drip. Otherwise sinus rhythm. Patient remains on the ventilator. Will also send off stool for C. difficile. Also patient IV cefepime. Getting TPN. August 31: ICU. Patient had positive fluid balance. Was given IV Lasix earlier. Remains on Levophed. Spiking fevers. Getting TPN. Stool negative for C. difficile. Patient is growing MDRO Pseudomonas aeruginosa. ID is ordered IV Zerbaxa. Which is currently not available. Patient's friend is visiting him in the ICU. Light trach secretion September 01: ICU. On the ventilator. FiO2 45%. PEEP of 5. Continues to have light trach secretions. Sputum cultures again growing Pseudomonas. Zerbaxa was obtained and resumed. Blood pressure running low. On Levophed. Patient's younger son at the bedside. Colostomy working fine. Has been spiking fevers. Cooling blanket. Ice packs. September 02: ICU. Ventilator FiO2 45%. PEEP of 5. Continues to have some trach secretions. IV Zerbaxa IV tobramycin. TPN lipids to continue. Also Levophed. Patient started cooling blankets since yesterday for temperatures. Along with the nurse speech therapy records were reviewed from last few admissions. Patient with multiple MBS and bedside swallow eval. No trouble with swallowing. Patient put on a chopped diet. Thin liquids. Patient did spike a fever of 101.7 earlier today. Low ionized calcium. IV gluconate given. September 03: ICU. On ventilator FiO2 45%. PEEP of 5. Mild trach secretions. Getting IV TPN lipids. IV tobramycin. Zerbaxa was substituted to Avycaz. By ID. No fever per se since yesterday. For blood pressure patient is also on Levophed and vasopressin. September 04: ICU. On ventilator FiO2 45%. PEEP of 5. Clear trach secretions. Getting IV TPN lipids. IV tobramycin. And IV Avycaz. Remains afebrile.. On Levophed and vasopressin. Awake. 09/06/2024 Patient is seen and evaluated in ICU; remains on mechanical ventilator, actually his home ventilator, with settings of volume assist-control, rate 20, tidal volume 450, FiO2 45%, PEEP of 5. - patient has been refusing blood; no ABGs to. He is getting lactated Ringer's at 50 cc an hour, TPN at 65 cc an hour. - patient remains on the same antibiotics. - Labs reviewed which reveal white count 5.21, hemoglobin 7.9, hematocrit 27.5, and platelet count 64,000. Sodium 141, potassium 3.5, chlorides 102, CO2 32, BUN 25, and creatinine 0.35. Glucose is 152. Calcium is 8. Albumin is 2.1. -Chest x-ray is largely unchanged. Critical care managing mechanical ventilation; recommending to add scopolamine patch for increased secretion -Patient remains on Avycaz and tobramycin - Continue with current TPN 09/07 Patient remains in the ICU lethargic. He is s/p tracheostomy Overnight he was more hypoxic they have to increase PEEP to 8. Also has a lot of secretions when needed for secretions suctioning to try to become apneic per Staff. Patient currently receiving Avycaz and tobramycin. on TPN also 09/08 Patient remains in the ICU awake and alert status post tracheostomy. He has contractures of both upper and lower extremities He is complaining from pain in his lungs. He is status post flexible bronchoscopy and bronchoalveolar lavage yesterday. He has previous sputum culture positive for Pseudomonas currently covered with ceftazidime and tobramycin. He is also on Lovenox 90 mg 09/09 Patient still in the ICU on mechanical ventilation via tracheostomy. PEEP is 8.0 as is yesterday Also he spiked little fever to 100.7. IV vancomycin is added to tobramycin and ceftazidime He is getting also bronchoscopy follow-up culture results 09/10 Patient feels clinically the same, he still getting breathing via mechanical ventilation through his tracheostomy with PEEP of 8. Patient feels he is required suctioning through his tracheostomy tube. He denies chest pain or pain anywhere else he can communicate by head signs and gestures. Hemodynamically stable and afebrile hemoglobin 7.4 platelet count 73 Glucose is controlled potassium 3.3 He remains on broad-spectrum antibiotic Rocephin at this time tobramycin and IV vancomycin added yesterday because he had low-grade fever. He is getting TPN. IV fluid Ringer lactate was stopped and patient was started on IV Lasix 20 mg 3 times a day continue with therapeutic dose of Lovenox as well 09/11 Patient remains in the ICU Remains on mechanical ventilation via tracheostomy He status post bronchoalveolar lavage 2 days ago, culture is growing Pseudomonas aeruginosa and corynebacterium Patient remains on broad-spectrum antibiotics with IV vancomycin, tobramycin, ceftazidime On IV Lasix also is on therapeutic dose of Lovenox 90 mg twice daily No IV fluids 09/12 Patient remains in the ICU Clinically close to what he was over the last 2 days still getting oxygen via his tracheostomy He remains on broad-spectrum antibiotic with Ceftin this time and IV vancomycin. Also he is on IV Lasix 20 mg and therapeutic dose of Lovenox. 09/13 Patient remains in the ICU on mechanical ventilation via tracheostomy Patient looks better today, he breathing better Less secretion Fentanyl patch increased 09/14. Patient seen and examined. Patient continues to be on mechanical ventilation via trach mask. Currently on TPN. Currently on IV Zerbaxa and vancomycin 09/15. Patient seen and examined.Vital signs done showed the patient overnight, heart rate 106, blood pressure 107/40, currently on ventilation. Labs reviewed showed WBC 7.27, hemoglobin 7.5, sodium 148 on potassium 4.3, BUN 23, creatinine 0.47 09/16. Patient seen and examined labs reviewed showing WBC 5.45, hemoglobin 9.6, platelet count 131, sodium 146, potassium 4.1, BUN 20, creatinine 0.47. Continue small amount of Levophed. Currently on Zerbaxa and vancomycin. Currently on TPN September 17: ICU. Patient has taken a turn for the worse today. Significant thick white secretions from the trach. Sinus rhythm. Receiving TPN. Patient is on Levophed and vasopressor. Rather high dose. FiO2 [address] of 10. [address] Ho earlier spoke to the patient/family. Remains full code September 18: ICU. Intubated FiO2 70 PEEP of 12. Sinus rhythm. Drips include IV propofol at 50 and Levophed at 0.13. Patient is off vasopressin. Patient secretions. Family at the bedside. September 19: ICU. Intubated. FiO2 50 and a PEEP of 12. Drips include IV Levophed and propofol. Also started on Lasix drip 10 mg an hour yesterday. Secretions present. September 20: ICU. Intubated. FiO2 50 and a PEEP of 12. Hemoglobin 6.3. Secondary to blood being given. Patient been on and off Levophed. On propofol. Lipids have been held. Continues with TPN. Lasix drip was discontinued. Lovenox has been held because of low hemoglobin. Unable anemia is felt to be combination of regular blood draws and possible element element of hemolysis from all the infection. No dark stool. Family at the bedside September 21: ICU. Intubated. Received 2 units of blood yesterday. Hemoglobin 7.6 today. Per nephrology renal replacement therapy. Dialysis access placed by Dr. Cadena. Patient earlier today on Levophed. Propofol. Getting TPN. Sinus rhythm. Urine output decreased September 22: ICU. Intubated. FiO2 15 of PEEP of 12. Seen earlier today. Dialysis being started. Been on IV Levophed propofol. Sinus rhythm. TPN. Sinus rhythm. September 23: ICU. Intubated. Due for another dialysis today. Saw the patient earlier today. Remains on IV Levophed propofol. Sinus rhythm. TPN. On fentanyl patch. September 24: ICU. Intubated. FiO2 40 and PEEP of 12. Remains on IV Levophed and propofol. IV TPN. Decrease trach secretions. IV antibiotics. Was due for dialysis earlier today. September 25: ICU. Intubated. FiO2 30%. Patient getting IV Levophed and propofol. IV TPN. Dialysis today. Receiving IV antibiotics. Does opens eyes occasionally. Some commands per nursing. September 26: ICU. Intubated. FiO2 30 and a PEEP of 8. Had 2 L hemodialysis removed yesterday. Getting hemodialysis today. Aiming for 2 to 3 L. Patient is on propofol. Currently Levophed on hold. Getting TPN. Patient is actually awake and following commands. Sinus rhythm. September 27: ICU. Intubated. FiO2 39 PEEP of 8. No dialysis today. Remains on IV Levophed propofol. TPN. There is a bedside. Patient asked me how is he doing. Had a lengthy information in terms of his guarded prognosis. Did tell him it is his choice about how he wishes to proceed. He needs to decide between treatment benefits versus in the suffering because of that entails from treatment and his recurrent infections etc. Especially in the context of decreased activity. Kidney failure, respiratory failure etc. September 28: ICU. Intubated. FiO2 30 and a PEEP of 8. For dialysis today. Off Levophed this morning. IV propofol. TPN. Some clear light to trach secretions. Colostomy working. Poor urine output. September 29: ICU. Intubated. IV propofol Levophed. TPN. Awake. Discussed with Dr. Holt. Prognosis very poor. Probably treatment is the point of getting futile. Patient needs about 34 more days to go to long-term ventilator setting. September 30: ICU. Intubated. IV propofol. Currently off Levophed. TPN. Getting dialysis today. Awake. IV antifungal. Given a unit of blood for hemoglobin of 6.9 October 01: ICU. Intubated. IV propofol. Remains on Levophed. TPN dose adjusted. Dialysis. IV aniedulefungin. Eyes open. Vent. FiO2 30%. PEEP 5 September 18: ICU. Intubated. IV propofol. Off Levophed. TPN. Dialysis today. IV aniedulefungin last day on October 06. Per ID. Some trach secretions clear October 03: ICU. Intubated. IV propofol. TPN. Dialysis schedule will now be Saturday. Next dialysis will be on coming Saturday. IV aniedulefungin last day-I October 06. Minimal urine output-5 to 10 cc an hour. Awake. October 04: ICU. Intubated. IV propofol. TPN. Next dialysis on Saturday. IV elevated Lida function. Urine output remains to be minimal. Awake. Mother at the bedside. Does not have any questions. Sinus rhythm. Active Medications Albuterol/Ipratropium (Ipratropium-Albuterol 3 Ml Neb) 3 ml INHALATION RT-Q4H PRN PRN Reason: shortness of breath Last Admin: 10/02/24 15:05 Dose: 3 ml Artificial Tears (Artificial Tears-Hypromellose Drops 15 Ml Btl) 1 drops BOTH EYES QID PRN PRN Reason: Dry Eye(s) Last Admin: 09/04/24 12:52 Dose: 1 drops Chlorhexidine Gluconate (Chlorhexidine Gluconate 15 Ml Cup) 15 ml MUCOUS MEM BID ANNIE Last Admin: 10/04/24 08:33 Dose: 15 ml Darbepoetin Andry (Darbepoetin Andry 40 Mcg/0.4 Ml Syringe) 40 mcg SQ Q7D ANNIE Last Admin: 10/01/24 11:38 Dose: 40 mcg Dextrose/Water (Dextrose 50% Syringe 50 Ml) 25 ml IVP PER PROTOCOL PRN; Protocol PRN Reason: Hypoglycemia Dextrose/Water (Dextrose 50% Syringe 50 Ml) 50 ml IVP PER PROTOCOL PRN; Protocol PRN Reason: Hypoglycemia Fentanyl (Fentanyl 100mcg/Hr Patch) 1 patch TRANSDERM Q72H ANNIE; Protocol Last Admin: 10/04/24 08:33 Dose: 1 patch Heparin Sodium (Porcine) (Heparin Sodium,Porcine 5,000 Unit/Ml 1 Ml Vial) 5,000 unit SQ Q8HR ANNIE Last Admin: 10/04/24 16:02 Dose: 5,000 unit Hydromorphone HCl (Hydromorphone 1 Mg/Ml 1 Ml Syringe) 1 mg IVP Q3HR PRN PRN Reason: Moderate Pain (Scale 4 to 6) Last Admin: 10/04/24 15:05 Dose: 1 mg Anidulafungin 100 mg/ Sodium (Chloride) 130 mls @ 84 mls/hr IVPB DAILY ANNIE; Protocol Last Admin: 10/04/24 08:33 Dose: 84 mls/hr Propofol 1,000 mg/ IV Solution 100 mls @ 32.34 mls/hr IV .Q3H6M ANNIE; Protocol Last Admin: 10/04/24 16:02 Dose: 10 mcg/kg/min, 6.468 mls/hr Norepinephrine Bitartrate 8 mg (/ Sodium Chloride) 258 mls @ 6.513 mls/hr IV .Q24H ANNIE; Protocol Last Admin: 10/04/24 08:35 Dose: Not Given Sodium Acetate 40 meq/ Sodium Chloride 80 meq/ Calcium Gluconate 0.5 gm/ Potassium Chloride 30 meq/ Magnesium Sulfate 0.5 gm/ Potassium Phosphate 15 mmol/ Amino Acids /Dextrose 1,066 mls @ 85 mls/hr IV .BY DURATION [facility] Last Admin: 10/03/24 19:01 Dose: 85 mls/hr Parenteral Vitamin Supplement 10 ml/ Zinc/Copper/Manganese/Selenium 1 ml/ Sodium Acetate 40 meq/ Sodium Chloride 80 meq / Calcium Gluconate 0.5 gm/Potassium Chloride 30 meq/Magnesium Sulfate 0.5 gm/Potassium Phosphate 15 mmol/Amino Acids/Dextrose 1,077 mls @ 85 mls/hr IV .BY DURATION [facility] Last Admin: 10/04/24 06:48 Dose: 85 mls/hr Insulin Human Lispro (Insulin Lispro (Humalog) 100 Unit/Ml 10 Ml Vl) 0 unit SQ Q6HR [facility]; Protocol Last Admin: 10/04/24 17:49 Dose: Not Given Lorazepam (Lorazepam 1 Mg/0.5 Ml Vial) 0.5 mg IV Q6HR PRN PRN Reason: Anxiety Last Admin: 09/15/24 18:26 Dose: 0.5 mg Miscellaneous Information (Pneumonia Protocol Utilized 1 Each Misc) 1 each PO ONCE PRN PRN Reason: Per Protocol Miscellaneous Information (Potassium Replacement Protocol 1 Each Misc) 1 each MISCELLANE DAILY PRN; Protocol PRN Reason: Per Protocol Miscellaneous Information (Magnesium Replacement Protocol 1 Each Misc) 1 each MISCELLANE DAILY PRN; Protocol PRN Reason: Per Protocol Naloxone HCl (Naloxone 0.4 Mg/Ml 1 Ml Vial) 0.2 mg IV Q2M PRN PRN Reason: Opioid Reversal Ondansetron HCl (Ondansetron 4 Mg/2 Ml Vial) 4 mg IVP Q6HR PRN PRN Reason: Nausea And Vomiting Last Admin: 09/01/24 19:41 Dose: 4 mg Pantoprazole Sodium (Pantoprazole 40 Mg/10 Ml Vial) 40 mg IV DAILY [facility] Last Admin: 10/04/24 08:34 Dose: 40 mg Petrolatum (Zinc Oxide Paste (Z-Guard) 1 Applic) 1 applic TOPICAL BID PRN; Protocol PRN Reason: Wound Healing Social history: Patient started smoking at the age of [age] 1 pack a day stopped in 2016. Nonambulatory. Is cared by his son over. Who is also the DPOA Physical examination: VITAL SIGNS: 98.4, 95, 22, 150 x 71, 94% GENERAL:, Eyes open EYES: Pupils equal. Conjunctiva loan l. HEENT: External appearance of nose and ears normal, oral cavity dry NECK: JVD unable to assess; masses not palpable. Tracheostomy HEART: First and second heart sounds are normal; no edema. LUNGS: Respiratory rate increased, decreased breath sounds, some crackles ABDOMEN: Soft, nontender, liver spleen not palpable, no masses palpable. Double barrel ostomy. PSYCH: Following simple commands MUSCULOSKELETAL: Right BKA. Left foot drop. Left hand contracture. Right hand also with contracture but able to have some movements NEUROLOGICAL: Cranial nerves grossly intact; no facial asymmetry, slight movement in the right arm. L INVESTIGATIONS, reviewed in the clinical context: October 04: White count 5.9 hemoglobin 7.9 potassium 4.5 BUN 59 creatinine 1.9 phosphorus 1.5 September 17: White count 20 hemoglobin 8.5 platelets 199 potassium 4.2 BUN 25 creatinine 0.4. ABG: pH 7.17 pCO2 79 PO277. September 02: White count 3.6 hemoglobin 9.7 platelets 130 potassium 3.9 BUN 23 creatinine 0.36 ionized calcium 4.3 TSH 2.7 Sputum culture: Pseudomonas aeruginosa: Sensitive to Zosyn, tobramycin, ceftazidime Sputum culture: Pseudomonas aeruginosa August 30: White count 3.5 hemoglobin 10.0 platelets 133 potassium 3.5 creatinine 0.36 August 29, 2024: White count 6.2 hemoglobin 12.3 platelets 216 sodium 128 potassium 3.1 BUN 50 creatinine 0.46 lactic acid 2.1 calcium 10.8 phosphorus 3.0 troponin I 0.016 UA: Negative for nitrite Influenza type A, type B, RSV, SARS-CoV-2: Not detected EKG tracing personally reviewed by me-normal sinus rhythm Chest x-ray film personally reviewed by me-right basilar infiltrate Previous labs: Sputum culture July 20, 2024: Pseudomonas aeruginosa Assessment plan: - basal pneumonia. Previous admission sputum was positive for Pseudomonas aeruginosa-:: Has received different antibiotics. Completed course of antibiotic Being followed by pulmonary, and ID - Candidemia likely source left chest wall PICC line that has been discontinued. And repeat blood cultures on September 22 negative. Line changes are being followed by ID IV Eraxis-last days October 06 per ID - Fluid overload Had received Lasix drip - Acute kidney injury from ATN from septic shock. And possibly vancomycin toxicity. Oliguric. Volume overload. First dialysis was on September 22.-Has been getting dialysis nearly daily. From now on dialysis schedule be Saturday - Metabolic alkalosis - Septic shock: Levophed has been on and off - Acute on chronic hypoxic and hypercapnic respiratory failure, vent dependent at night at home: On ventilator support. Propofol - Tracheostomy with trach collar -Acute normocytic anemia of chronic disease and hospital-acquired anemia from blood draws and possible hemolysis from infection Today received 6 units of blood - Thrombocytopenia likely from sepsis: Corrected Follow - Right below-knee amputation - Chronic quadriparesis. Including left foot drop. Left arm contracture. Some right hand contracture. Some movement in the right arm - Crohn's disease with double barrel ostomy bag in place since 09/2021 - TPN and lipids Lipids have been held during propofol - Full code - DPOA, son BECKY Prognosis not good. Next dialysis tomorrow. Past Medical History Past Medical History: CVA/TIA, Deep Vein Thrombosis (DVT), Pneumonia Additional Past Medical History / Comment(s): Hx CVA in 2012, DVT R arm, Crohns. colostomy Bag placed in 09/2021. History of Any Multi-Drug Resistant Organisms: MRSA, Other MDRO Date of last positivie culture/infection: 07/20/24-Other MDRO; 12/14/23-MRSA MDRO Source:: Other MDRO - sputum, BAL; MRSA- nasal Past Surgical History: Bowel Resection, Cholecystectomy, Orthopedic Surgery Additional Past Surgical History / Comment(s): R BKA, trach with chronic home vent Past Anesthesia/Blood Transfusion Reactions: No Reported Reaction Additional Past Anesthesia/Blood Transfusion Reaction / Comment(s): recalled from previous admission Smoking Status: Never smoker
[2024-10-04 23:50] LABS: Glucose,Whole Blood 149 mg/dL (70-110)
[2024-10-05 04:19] LABS: HCT 22.9 % (39.6-50.0); HGB 7.0 g/dL (13.0-17.0); MCH 27.3 pg (27.0-32.0); MCHC 30.6 g/dL (32.0-37.0); MCV 89.5 fL (80.0-97.0); Platelet Count 175 10*3/uL (140-440); RBC 2.56 10*6/uL (4.40-5.60); RDW 20.2 % (11.5-14.5); WBC 5.99 10*3/uL (4.50-10.00)
[2024-10-05 05:04] LABS: ALT 59 U/L (4-49); AST 39 U/L (17-59); African American GFR (CKD) 32 (>60 ml/min/1.73 sqM); Albumin 2.5 g/dL (3.5-5.0); Alkaline Phosphatase 165 U/L (38-126); Anion Gap 12 mmol/L; Blood Urea Nitrogen 79 mg/dL (9-20); Calcium 9.4 mg/dL (8.4-10.2); Carbon Dioxide 21 mmol/L (22-30); Chloride 97 mmol/L (98-107); Glucose 178 mg/dL (74-99); Magnesium 2.0 mg/dL (1.6-2.3); Non-African American GFR(CKD) 28 (>60 ml/min/1.73 sqM); Potassium 5.2 mmol/L (3.5-5.1); Sodium 130 mmol/L (137-145); Total Protein 6.6 g/dL (6.3-8.2)
[2024-10-05 05:45] LABS: Glucose,Whole Blood 177 mg/dL (70-110)
--- NOTE | 2024-10-05 07:22 | XR ---
EXAMINATION TYPE: XR chest 1V portable DATE OF EXAM: 10/05/2024 5:12 AM COMPARISON: 10/04/2024 CLINICAL INDICATION: Male, 49 years old with history of mechanically ventilated, , FINDINGS: Tracheostomy cannula. Surgical clips right base of the neck. Left-sided double-lumen hemodialysis cat heter with tip very low inferior right atrium probably heading in the direction of the right ventricl e, projecting at the expected GE junction level. Heart is mildly enlarged. Diffuse interstitial and v ascular density persists, possibly with minimal improvement. Left PICC tip obscured by overlying hemo dialysis catheter. IMPRESSION: 1. Left-sided double lumen hemodialysis catheter, tips very low projecting near the GE junction level . 2. Ongoing pulmonary vascular congestion, similar to possibly minimally improved. [facility], , 10/05/2024 7:19 AM
--- NOTE | 2024-10-05 10:40 | P.PN ---
Subjective Patient is seen for follow-up for acute kidney injury. Patient remains on the vent. He is awake. Started hemodialysis on 09/22/2024 for volume overload and worsening acute kidney injury Patient remains oliguric. FiO2 at 30% Volume status has improved. No significant issues today. Patient is seen on hemodialysis. Tolerating treatment well. Objective - Vital Signs Vital signs: Vital Signs Temp 98.1 F 10/05/24 08:00 Pulse 98 10/05/24 10:00 Resp 17 10/05/24 10:00 BP 102/54 10/05/24 10:00 Pulse Ox 97 10/05/24 10:00 FiO2 30 10/05/24 09:11 Intake & Output 10/04/24 10/05/24 10/05/24 18:59 06:59 18:59 Intake Total 2507.066 2220.111 392 Output Total 20 725 10 Balance 2487.066 1495.111 382 Weight 93.6 kg Intake: IV 260 143 52 0.9 KVO 100 110 40 Anidulafungin 100 mg In 100 Sodium Chloride 0.9% 100 ml @ 84 mls/hr IVPB DAILY [facility] Rx#:[id number] Pressure Bag 60 33 12 Intake, IV Titration 0122.860 7980.111 Amount Mvi, Adult No.4 with Vit 1077 K 10 ml Trace (Conc-1Ml/ Dose) 1 ml Sodium Acetate 40 meq Sodium Chloride 4Meq/ml Vial 80 meq Calcium Gluconate 0.5 gm Potassium Chloride 30 meq Magnesium Sulfate gm 0.5 gm Potassium Phosphate 15 mmol In Amino Acids 5 %/Dextrose 20 % 1,000 ml @ 85 mls/hr IV .BY DURATION [facility] Rx#: [id number] Sodium Acetate 40 meq 1066 Sodium Chloride 4Meq/ml Vial 80 meq Calcium Gluconate 0.5 gm Potassium Chloride 30 meq Magnesium Sulfate gm 0.5 gm Potassium Phosphate 15 mmol In Amino Acids 5 %/Dextrose 20 % 1,000 ml @ 85 mls/hr IV .BY DURATION ANNIE Rx#: [id number] Sodium Phosphate 30 mmol 250 In Dextrose 5% in Water 250 ml @ 65 mls/hr IVPB ONCE ONE Rx#:[id number] propofoL 1,000 mg In 81.066 65.111 Empty Bag 1 bag @ 50 MCG/ KG/MIN 32.34 mls/hr IV . Q3H6M [facility] Rx#:[id number] TPN/PPN 850 935 340 TPN 850 935 340 Output: Urine 20 25 10 Stool 700 Other: Voiding Method Indwelling Catheter Indwelling Catheter Indwelling Catheter ABP, PAP, CO, CI - Last Documented Arterial Blood Pressure - Exam Patient is on the vent he is awake. Examination of the heart S1 and S2 Tracheostomy noted Examination of the lungs bilateral breath sounds are heard Abdomen is distended Examination of lower extremities shows right BKA and 2+ edema in the left leg - Labs CBC & Chem 7: 10/05/24 03:55 10/05/24 03:55 Labs: Abnormal Lab Results - Last 24 Hours (Table) 10/04/24 10/04/24 10/05/24 Range/Units 17:48 23:48 03:55 RBC (4.40-5.60) 10*6/uL Hgb (13.0-17.0) g/dL Hct (39.6-50.0) % MCHC (32.0-37.0) g/dL Sodium 130 L (137-145) mmol/L Potassium 5.2 H (3.5-5.1) mmol/L Chloride 97 L (98-107) mmol/L Carbon Dioxide 21 L (22-30) mmol/L BUN 79 H (9-20) mg/dL Creatinine 2.61 H (0.66-1.25) mg/dL Glucose 178 H (74-99) mg/dL POC Glucose (mg/dL) 134 H 149 H (70-110) mg/dL Total Bilirubin 2.7 H (0.2-1.3) mg/dL ALT 59 H (4-49) U/L Alkaline Phosphatase 165 H (38-126) U/L Albumin 2.5 L (3.5-5.0) g/dL 10/05/24 10/05/24 Range/Units 03:55 05:43 RBC 2.56 L (4.40-5.60) 10*6/uL Hgb 7.0 L (13.0-17.0) g/dL Hct 22.9 L (39.6-50.0) % MCHC 30.6 L (32.0-37.0) g/dL Sodium (137-145) mmol/L Potassium (3.5-5.1) mmol/L Chloride (98-107) mmol/L Carbon Dioxide (22-30) mmol/L BUN (9-20) mg/dL Creatinine (0.66-1.25) mg/dL Glucose (74-99) mg/dL POC Glucose (mg/dL) 177 H (70-110) mg/dL Total Bilirubin (0.2-1.3) mg/dL ALT (4-49) U/L Alkaline Phosphatase (38-126) U/L Albumin (3.5-5.0) g/dL Assessment and Plan Assessment: 1. Acute kidney injury secondary to ATN secondary to septic shock and vancomycin toxicity. Vancomycin level 49.3 on 09/19/2024. Patient remains oliguric with significant volume overload noted. Started hemodialysis on 09/22/2024. 2. Septic shock secondary to pneumonia and fungemia. 3. Acute blood loss anemia status post packed RBCs transfusion. Hemoglobin stable at 7.1 to 7.9 mg/dL. 4. Volume overload. 5. Chronic hypoxic and hypercapnic respiratory failure, home ventilator dependent. 6. History of cardiac arrest. 8. Status post right BKA. Plan: Next hemodialysis on 10/07/2024 Maintained on TPN Continue to monitor electrolytes.
--- NOTE | 2024-10-05 11:30 | P.PN ---
Subjective Progress Note Date: 10/05/24 Principal diagnosis: Acute on chronic hypoxic respiratory failure secondary to bilateral pneumonia secondary to multidrug resistant Pseudomonas aeruginosa., Candidemia/fungemia This is a 49-year-old white male familiar to my service, history of paraplegia, home vent dependent, history of tracheostomy, patient had multiple admissions to the ICU for recurrent episodes of pneumonia and respiratory failure requiring ventilatory support. On his last admission patient was eventually discharged home on a home ventilator, and this was back on 08/04/2024. Patient was discharged home with a PICC line, patient was in the ER yesterday on 08/28 for abnormal labs mostly low potassium and low sodium discharged home however he came back today complaining of shortness of breath, has been ventilator dependent all along. Chest x-ray showed basically bibasilar opacities/atelectasis, doubt pneumonia, the findings in the left lower lobe are chronic. Patient did have previous history of pneumonia involving the left lower lobe and he had multiple bronchoscopies in the past. Bronchial cultures and sputum cultures have been positive in the past for mostly Pseudomonas aeruginosa. Patient was seen in the ER today, and he is already on cefepime for empiric coverage for potential left lower lobe pneumonia, patient had abnormal electrolytes with relatively low sodium low potassium, no leukocytosis, normal renal profile, blood pressure was soft, and he was given fluid boluses. Lactic acid was 2.1, D-dimer is normal, patient was admitted, and this consult was initiated. 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 On 10/03/2024, the patient is clinically unchanged. Remains on propofol at 10 mcg/kg/min. Calm and comfortable. Responsive and awake. Evening was uneventful. Remains on a mechanical ventilator. Assist-control of 24, tidal volume of 400, FiO2 30% with a PEEP of 5. No blood gases from today. Follow-up chest x-ray from today is showing stable findings without any acute interval ch kelvin and the patient continues to have persistent interstitial opacities bilaterally. The patient remains on TPN at rate of 85 cc an hour. Off pressors. White cell count is 6 with hemoglobin 7.1 and a platelet count of 206. BUN 34 with a creatinine of 1.3. Sodium is at 133. On 10/04/2024, there is absolutely no change in the patient's condition. The patient is resting comfortably on propofol low-dose at 10 mcg. He remains on mechanical ventilator, unable to wean him off the mechanical ventilator and is vent dependent with an assist-control mode at rate of 24, tidal volume of 400, FiO2 of 30% and the PEEP of 5. Chest x-ray remains unchanged. The patient is afebrile and hemodynamically stable, completing the course of Eraxis. Remains on TPN for nutritional support rate of 55 cc an hour. Urine output is minimal and undergoing periodic hemodialysis. The white cell count is 5.9, hemoglobin 7.9, BUN is 59 with a creatinine of 1.9. Potassium levels of 4.5. Next hemodialysis session is on 10/05/2024. Patient was seen today on 10/05/2024, remains in the ICU, intubated mechanically ventilated, on assist-control rate of 24 tidal volume 400 FiO2 30% and PEEP of 5. Remains on propofol 10 mcg/kg/min remains on TPN at 85 cc/h remains on Eraxis patient is sedated but he is arousable and he follows simple instructions. However he is profoundly weak not to mention the patient is p araplegic. Labs today show WBC count of 5.9 hemoglobin is 7 electrolytes are relatively normal bicarb is 21 BUN is 79 creatinine 2.61 patient is receiving hemodialysis this morning. Liver enzymes are a bit elevated with bilirubin of 2.7 AST 39 ALT 59 and alkaline phosphatase of 165. Albumin is 2.5. Chest x-ray continues to show left-sided double-lumen dialysis catheter there is also ongoing pulmonary vascular congestion, possible minimal infiltrates. Medications were reviewed patient remains on Eraxis, Peridex, Aranesp, fentanyl patches, heparin subcu every 8 hours, Dilaudid as needed, insulin as per protocol, DuoNeb updraft 4 times daily and as needed, Ativan as needed, presently off norepinephrine, continues to be on Zofran as needed and Protonix, propofol, and he is off antibiotics except for his Eraxis. Objective - Vital Signs Vital signs: Vital Signs Temp 98.1 F 10/05/24 08:00 Pulse 98 10/05/24 10:00 Resp 17 10/05/24 10:00 BP 102/54 10/05/24 10:00 Pulse Ox 97 10/05/24 10:00 FiO2 30 10/05/24 09:11 Intake & Output 10/04/24 10/05/24 10/05/24 18:59 06:59 18:59 Intake Total 2507.066 2220.111 392 Output Total 20 725 10 Balance 2487.066 1495.111 382 Weight 93.6 kg Intake: IV 260 143 52 0.9 KVO 100 110 40 Anidulafungin 100 mg In 100 Sodium Chloride 0.9% 100 ml @ 84 mls/hr IVPB DAILY [facility] Rx#:[id number] Pressure Bag 60 33 12 Intake, IV Titration 5665.523 7462.111 Amount Mvi, Adult No.4 with Vit 1077 K 10 ml Trace (Conc-1Ml/ Dose) 1 ml Sodium Acetate 40 meq Sodium Chloride 4Meq/ml Vial 80 meq Calcium Gluconate 0.5 gm Potassium Chloride 30 meq Magnesium Sulfate gm 0.5 gm Potassium Phosphate 15 mmol In Amino Acids 5 %/Dextrose 20 % 1,000 ml @ 85 mls/hr IV .BY DURATION [facility] Rx#: [id number] Sodium Acetate 40 meq 1066 Sodium Chloride 4Meq/ml Vial 80 meq Calcium Gluconate 0.5 gm Potassium Chloride 30 meq Magnesium Sulfate gm 0.5 gm Potassium Phosphate 15 mmol In Amino Acids 5 %/Dextrose 20 % 1,000 ml @ 85 mls/hr IV .BY DURATION [facility] Rx#: [id number] Sodium Phosphate 30 mmol 250 In Dextrose 5% in Water 250 ml @ 65 mls/hr IVPB ONCE ONE Rx#:[id number] propofoL 1,000 mg In 81.066 65.111 Empty Bag 1 bag @ 50 MCG/ KG/MIN 32.34 mls/hr IV . Q3H6M [facility] Rx#:[id number] TPN/PPN 850 935 340 TPN 850 935 340 Output: Urine 20 25 10 Stool 700 Other: Voiding Method Indwelling Catheter Indwelling Catheter Indwelling Catheter ABP, PAP, CO, CI - Last Documented Arterial Blood Pressure - Exam GENERAL EXAM: 49-year-old white male intubated mechanically ventilated patient has a chronic tracheostomy, patient is sedated on propofol. However patient is arousable and he follows simple instructions. HEAD: Normocephalic. Tracheostomy is intact. Left IJ hemodialysis catheter is noted. EYES: Normal reaction of pupils, equal size. NOSE: Clear with pink turbinates. THROAT: Tracheostomy tube secured in place. NECK: No masses, no JVD. CHEST: No chest wall deformity. LUNGS: Continues to have coarse rhonchi bilaterally. CVS: S1 and S2 normal with no audible murmur, regular rhythm. ABDOMEN: Enterocutaneous fistula over the abdominal wall. No hepatosplenomegaly, normal bowel sounds. SKIN: No rashes, patient is quite edematous CENTRAL NERVOUS SYSTEM: Awake, follows simple instructions but profoundly weak. EXTREMITIES: Bilateral edema, extensive muscle atrophy. Contractures. There is no peripheral edema. No clubbing, no cyanosis. Peripheral pulses are intact. Right below-knee amputation is noted. - Labs CBC & Chem 7: 10/05/24 03:55 10/05/24 03:55 Labs: Abnormal Lab Results - Last 24 Hours (Table) 10/04/24 10/04/24 10/05/24 Range/Units 17:48 23:48 03:55 RBC (4.40-5.60) 10*6/uL Hgb (13.0-17.0) g/dL Hct (39.6-50.0) % MCHC (32.0-37.0) g/dL Sodium 130 L (137-145) mmol/L Potassium 5.2 H (3.5-5.1) mmol/L Chloride 97 L (98-107) mmol/L Carbon Dioxide 21 L (22-30) mmol/L BUN 79 H (9-20) mg/dL Creatinine 2.61 H (0.66-1.25) mg/dL Glucose 178 H (74-99) mg/dL POC Glucose (mg/dL) 134 H 149 H (70-110) mg/dL Total Bilirubin 2.7 H (0.2-1.3) mg/dL ALT 59 H (4-49) U/L Alkaline Phosphatase 165 H (38-126) U/L Albumin 2.5 L (3.5-5.0) g/dL 07/21/25 07/21/25 Range/Units 03:55 05:43 RBC 2.56 L (4.40-5.60) 10*6/uL Hgb 7.0 L (13.0-17.0) g/dL Hct 22.9 L (39.6-50.0) % MCHC 30.6 L (32.0-37.0) g/dL Sodium (137-145) mmol/L Potassium (3.5-5.1) mmol/L Chloride (98-107) mmol/L Carbon Dioxide (22-30) mmol/L BUN (9-20) mg/dL Creatinine (0.66-1.25) mg/dL Glucose (74-99) mg/dL POC Glucose (mg/dL) 177 H (70-110) mg/dL Total Bilirubin (0.2-1.3) mg/dL ALT (4-49) U/L Alkaline Phosphatase (38-126) U/L Albumin (3.5-5.0) g/dL Assessment and Plan Assessment: Impression: Acute on chronic hypoxic respiratory failure still intubated and mechanically ventilated, multifactorial but mostly related to multidrug- resistant Pseudomonas aeruginosa pneumonia., And now he has candidemia/Bella parapsilosis group Septic shock, secondary to above and previously pseudomonal pneumonia Candidemia with positive yeast in blood cultures has been on treatment for the last 3 weeks receiving Eraxis. Cultures from the eighth were negative repeat cultures are pending. Chronic hypoxic and hypercapnic respiratory failure, patient is ventilator dependent, patient has been recently on home ventilator History of severe tracheal stenosis History of tracheostomy History of recurrent pneumonias involving left lower lobe Tracheobronchomalacia History of DVT History of CVA History of right below-knee amputation History of asystole/cardiac arrest 2021. 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 Patient is maintained mostly on TPN. Bipedal edema with fluid overload hence patient was placed on Lasix. Recommendation: Continue ventilatory support, patient will be eventually discharged on home ventilator Continue Eraxis for his candidemia/fungal sepsis, this is being addressed by infectious disease on the case, ordered fungal blood cultures today. Continue TPN/nutritional support Continue hemodialysis as felt necessary by nephrology on the case. Continue GI and DVT prophylaxis/Protonix Continue bronchodilators Remains very critically ill. Critical care time is 35 minutes Overall prognosis remains extremely poor. We will continue to follow
[2024-10-05 12:00] LABS: Glucose,Whole Blood 176 mg/dL (70-110)
[2024-10-05 17:58] LABS: Glucose,Whole Blood 231 mg/dL (70-110)
[2024-10-05] MEDS: SODIUM ACETATE IV SCH (21:07)
[2024-10-05] MEDS: [UNRECOGNIZED DRUG - OTHER] IV SCH (21:07)
[2024-10-05] MEDS: SODIUM CHLORIDE IV SCH (21:07)
--- NOTE | 2024-10-05 21:42 | P.PN ---
Subjective Progress Note Date: 10/04/24 Principal diagnosis: Reason for follow-up is sepsis and pneumonia/candidemia Patient is a 49-year-old male with a past medical history significant for CVA TIA DVT pneumonia history of complicated Crohn's disease in this patient who did have multiple abdominal surgeries patient also have a tracheostomy has been brought to the hospital with Generalized weakness did have a fever concerning for pneumonia on today's evaluation that is 10/04/2024 patient is afebrile patient is hemodynamically stable remains to be intubated on the ventilator trach FiO2 is currently stable no significant purulent secretions will repeat oriented changes reported by nursing staff. Patient white count is 5.91, creatinine 1.90 Objective - Vital Signs Vital signs: Vital Signs Temp 98.1 F 10/04/24 08:00 Pulse 96 10/04/24 09:00 Resp 16 10/04/24 09:00 BP 111/49 10/04/24 09:00 Pulse Ox 93 L 10/04/24 09:00 FiO2 30 10/04/24 11:17 Intake & Output 10/03/24 10/04/24 10/04/24 18:59 06:59 18:59 Intake Total 8293.636 7270.077 303 Output Total 935 15 5 Balance 737.448 4350.077 298 Weight 93.2 kg Intake: IV 1276 520 48 0.9 KVO 120 120 30 Anidulafungin 100 mg In 100 Sodium Chloride 0.9% 100 ml @ 84 mls/hr IVPB DAILY [facility] Rx#:[id number] Pressure Bag 36 60 18 TPN 1020 340 Intake, IV Titration 78.586 77.077 Amount propofoL 1,000 mg In 78.586 77.077 Empty Bag 1 bag @ 50 MCG/ KG/MIN 32.34 mls/hr IV . Q3H6M [facility] Rx#:[id number] TPN/PPN 680 255 TPN 680 255 Output: Urine 35 15 5 Stool 900 Other: Voiding Method Indwelling Catheter Indwelling Catheter Indwelling Catheter ABP, PAP, CO, CI - Last Documented Arterial Blood Pressure - Exam GENERAL DESCRIPTION: Middle-age male intubated on the vent RESPIRATORY SYSTEM: Unlabored breathing , decreased breath sounds at bases HEART: S1 S2 regular rate and rhythm , ABDOMEN: Soft , no tenderness EXTREMITIES: Swelling to the leg - Labs CBC & Chem 7: 10/05/24 03:55 10/05/24 03:55 Labs: Abnormal Lab Results - Last 24 Hours (Table) 10/04/24 10/04/24 10/04/24 Range/Units 01:15 04:30 04:30 RBC 2.93 L (4.40-5.60) 10*6/uL Hgb 7.9 L (13.0-17.0) g/dL Hct 26.0 L (39.6-50.0) % MCHC 30.4 L (32.0-37.0) g/dL Sodium 132 L (137-145) mmol/L Chloride 97 L (98-107) mmol/L BUN 59 H (9-20) mg/dL Creatinine 1.90 H (0.66-1.25) mg/dL Glucose 118 H (74-99) mg/dL POC Glucose (mg/dL) 126 H (70-110) mg/dL Phosphorus 1.5 L (2.5-4.5) mg/dL 10/04/24 Range/Units 07:00 RBC (4.40-5.60) 10*6/uL Hgb (13.0-17.0) g/dL Hct (39.6-50.0) % MCHC (32.0-37.0) g/dL Sodium (137-145) mmol/L Chloride (98-107) mmol/L BUN (9-20) mg/dL Creatinine (0.66-1.25) mg/dL Glucose (74-99) mg/dL POC Glucose (mg/dL) 116 H (70-110) mg/dL Phosphorus (2.5-4.5) mg/dL Assessment and Plan (1) Pneumonia Current Visit: Yes Status: Acute Code(s): J18.9 - PNEUMONIA, UNSPECIFIED ORGANISM SNOMED Code(s): 034794129 (2) Sepsis Current Visit: Yes Status: Acute Code(s): A41.9 - SEPSIS, UNSPECIFIED ORGANISM SNOMED Code(s): 07406394 (3) Candidemia Current Visit: Yes Status: Acute Code(s): B37.7 - CANDIDAL SEPSIS SNOMED Code(s): 806349996 Plan: 1patient is a hospital with sepsis in this patient who did have fever tachycardia elevated lactic acid upon meeting criteria for SIRS/sepsis source likely pneumonia,patient is status post bronchoscopy lavage results currently growing Pseudomonas that is resistant to Avycaz and corynebacterium, which was vancomycin and Zyvox sensitive, patient completed antibiotic therapy for his pneumonia 2patient did have candidemia source is likely left chest wall PICC line which has been discontinued has been sent for the culture central line placed by jennie mccullough, blood culture repeat on 09/18/2024 positive blood culture repeat 09/22/2024 so far negative. Subsequently patient did continue PICC line and the chest wall catheter was discontinued as repeat blood culture from 09/22/2024 remained to be negative 3patient currently being treated with Eraxis last day of Eraxis will be last day 10/06/2024 and continue supportive care Dictation was produced using [employer] dictation software. please excuse any grammatical, word or spelling errors. Time with Patient: Less than 30
--- NOTE | 2024-10-05 21:43 | P.PN ---
Subjective Progress Note Date: 10/05/24 Principal diagnosis: Reason for follow-up is sepsis and pneumonia/candidemia Patient is a 49-year-old male with a past medical history significant for CVA TIA DVT pneumonia history of complicated Crohn's disease in this patient who did have multiple abdominal surgeries patient also have a tracheostomy has been brought to the hospital with Generalized weakness did have a fever concerning for pneumonia on today's evaluation that is 10/05/2024, patient has been afebrile, patient is breathing comfortably and currently debated on the vent through the trach FiO2 stable at 30% patient is hemodynamically stable and not requiring any pressor support no other changes reported by the nursing staff. Patient white count is 5.99, creatinine is 2.61 Objective - Vital Signs Vital signs: Vital Signs Temp 98.5 F 10/05/24 12:00 Pulse 102 H 10/05/24 12:00 Resp 28 H 10/05/24 12:00 BP 99/42 10/05/24 12:00 Pulse Ox 97 10/05/24 12:00 FiO2 30 10/05/24 12:00 Intake & Output 10/04/24 10/05/24 10/05/24 18:59 06:59 18:59 Intake Total 2507.066 2220.111 588 Output Total 20 725 715 Balance 2487.066 1495.111 -127 Weight 93.6 kg Intake: IV 260 143 78 0.9 KVO 100 110 60 Anidulafungin 100 mg In 100 Sodium Chloride 0.9% 100 ml @ 84 mls/hr IVPB DAILY [facility] Rx#:[id number] Pressure Bag 60 33 18 Intake, IV Titration 2459.459 2151.111 Amount Mvi, Adult No.4 with Vit 1077 K 10 ml Trace (Conc-1Ml/ Dose) 1 ml Sodium Acetate 40 meq Sodium Chloride 4Meq/ml Vial 80 meq Calcium Gluconate 0.5 gm Potassium Chloride 30 meq Magnesium Sulfate gm 0.5 gm Potassium Phosphate 15 mmol In Amino Acids 5 %/Dextrose 20 % 1,000 ml @ 85 mls/hr IV .BY DURATION [facility] Rx#: [id number] Sodium Acetate 40 meq 1066 Sodium Chloride 4Meq/ml Vial 80 meq Calcium Gluconate 0.5 gm Potassium Chloride 30 meq Magnesium Sulfate gm 0.5 gm Potassium Phosphate 15 mmol In Amino Acids 5 %/Dextrose 20 % 1,000 ml @ 85 mls/hr IV .BY DURATION [facility] Rx#: [id number] Sodium Phosphate 30 mmol 250 In Dextrose 5% in Water 250 ml @ 65 mls/hr IVPB ONCE ONE Rx#:[id number] propofoL 1,000 mg In 81.066 65.111 Empty Bag 1 bag @ 50 MCG/ KG/MIN 32.34 mls/hr IV . Q3H6M [facility] Rx#:[id number] TPN/PPN 850 935 510 TPN 850 935 510 Output: Urine 20 25 15 Stool 700 700 Other: Voiding Method Indwelling Catheter Indwelling Catheter Indwelling Catheter ABP, PAP, CO, CI - Last Documented Arterial Blood Pressure - Exam GENERAL DESCRIPTION: Middle-age male intubated on the vent RESPIRATORY SYSTEM: Unlabored breathing , decreased breath sounds at bases HEART: S1 S2 regular rate and rhythm , ABDOMEN: Soft , no tenderness EXTREMITIES: Swelling to the leg - Labs CBC & Chem 7: 10/05/24 03:55 10/05/24 03:55 Labs: Abnormal Lab Results - Last 24 Hours (Table) 10/04/24 10/04/24 10/05/24 Range/Units 17:48 23:48 03:55 RBC (4.40-5.60) 10*6/uL Hgb (13.0-17.0) g/dL Hct (39.6-50.0) % MCHC (32.0-37.0) g/dL Sodium 130 L (137-145) mmol/L Potassium 5.2 H (3.5-5.1) mmol/L Chloride 97 L (98-107) mmol/L Carbon Dioxide 21 L (22-30) mmol/L BUN 79 H (9-20) mg/dL Creatinine 2.61 H (0.66-1.25) mg/dL Glucose 178 H (74-99) mg/dL POC Glucose (mg/dL) 134 H 149 H (70-110) mg/dL Total Bilirubin 2.7 H (0.2-1.3) mg/dL ALT 59 H (4-49) U/L Alkaline Phosphatase 165 H (38-126) U/L Albumin 2.5 L (3.5-5.0) g/dL 10/05/24 10/05/24 10/05/24 Range/Units 03:55 05:43 11:49 RBC 2.56 L (4.40-5.60) 10*6/uL Hgb 7.0 L (13.0-17.0) g/dL Hct 22.9 L (39.6-50.0) % MCHC 30.6 L (32.0-37.0) g/dL Sodium (137-145) mmol/L Potassium (3.5-5.1) mmol/L Chloride (98-107) mmol/L Carbon Dioxide (22-30) mmol/L BUN (9-20) mg/dL Creatinine (0.66-1.25) mg/dL Glucose (74-99) mg/dL POC Glucose (mg/dL) 177 H 176 H (70-110) mg/dL Total Bilirubin (0.2-1.3) mg/dL ALT (4-49) U/L Alkaline Phosphatase (38-126) U/L Albumin (3.5-5.0) g/dL Assessment and Plan (1) Pneumonia Current Visit: Yes Status: Acute Code(s): J18.9 - PNEUMONIA, UNSPECIFIED ORGANISM SNOMED Code(s): 481555166 (2) Sepsis Current Visit: Yes Status: Acute Code(s): A41.9 - SEPSIS, UNSPECIFIED ORGANISM SNOMED Code(s): 01632653 (3) Candidemia Current Visit: Yes Status: Acute Code(s): B37.7 - CANDIDAL SEPSIS SNOMED Code(s): 909577133 Plan: 1patient is a hospital with sepsis in this patient who did have fever tachycardia elevated lactic acid upon meeting criteria for SIRS/sepsis source likely pneumonia,patient is status post bronchoscopy lavage results currently growing Pseudomonas that is resistant to Avycaz and corynebacterium, which was vancomycin and Zyvox sensitive, patient completed antibiotic therapy for his pneumonia 2patient did have candidemia source is likely left chest wall PICC line which has been discontinued has been sent for the culture central line placed by long chain beamer, blood culture repeat on 09/18/2024 positive blood culture repeat 09/22/2024 so far negative. Subsequently patient did continue PICC line and the chest wall catheter was discontinued as repeat blood culture from 09/22/2024 remained to be negative 3patient currently being treated with Eraxis, patient will complete his 2-week course of antifungal therapy as of 10/06/2024 and will discontinue Eraxis after tomorrow dose Dictation was produced using [employer] software. please excuse any grammatical, word or spelling errors. Time with Patient: Less than 30
[2024-10-05 22:39] LABS: Glucose,Whole Blood 241 mg/dL (70-110)
[2024-10-06 04:01] LABS: ABG HCO3 27 mmol/L (21-25); ABG PCO2 48 mmHg (35-45); ABG PH 7.35 (7.35-7.45); ABG PO2 81 mmHg (83-108); ABG TCO2 28 mmol/L (19-24)
--- NOTE | 2024-10-06 05:24 | P.PN ---
Subjective Progress Note Date: 10/05/24 Chief Complaint: Short of breath 49-year-old patient, follows with Dr. Murcia History of paraplegia, home vent at night, tracheostomy multiple admissions to the ICU for recurrent pneumonia. Patient's previous bronchial cultures been positive for Pseudomonas. He was discharged recently on IV cefepime. Also has a history of Crohn's disease with previous colectomy diverting ileostomy. History of DVT for which patient is on subcu Lovenox. Also had drug-resistant MRSA Pseudomonas. Patient currently does not have areas significant trach secretions. He has continues TPN. Has a right BKA. He does have slight movement in the right hand. Able to follow commands by nodding his head. Answering questions. He is scared by his elder son open. I was also the DPOA. August 30: Overnight patient started having more secretions through the tracheostomy. Vancomycin was added. Also blood pressure running low patient was put on Levophed drip. Otherwise sinus rhythm. Patient remains on the ventilator. Will also send off stool for C. difficile. Also patient IV cefepime. Getting TPN. August 31: ICU. Patient had positive fluid balance. Was given IV Lasix earlier. Remains on Levophed. Spiking fevers. Getting TPN. Stool negative for C. difficile. Patient is growing MDRO Pseudomonas aeruginosa. ID is ordered IV Zerbaxa. Which is currently not available. Patient's friend is visiting him in the ICU. Light trach secretion September 01: ICU. On the ventilator. FiO2 45%. PEEP of 5. Continues to have light trach secretions. Sputum cultures again growing Pseudomonas. Zerbaxa was obtained and resumed. Blood pressure running low. On Levophed. Patient's younger son at the bedside. Colostomy working fine. Has been spiking fevers. Cooling blanket. Ice packs. September 02: ICU. Ventilator FiO2 45%. PEEP of 5. Continues to have some trach secretions. IV Zerbaxa IV tobramycin. TPN lipids to continue. Also Levophed. Patient started cooling blankets since yesterday for temperatures. Along with the nurse speech therapy records were reviewed from last few admissions. Patient with multiple MBS and bedside swallow eval. No trouble with swallowing. Patient put on a chopped diet. Thin liquids. Patient did spike a fever of 101.7 earlier today. Low ionized calcium. IV gluconate given. September 03: ICU. On ventilator FiO2 45%. PEEP of 5. Mild trach secretions. Getting IV TPN lipids. IV tobramycin. Zerbaxa was substituted to Avycaz. By ID. No fever per se since yesterday. For blood pressure patient is also on Levophed and vasopressin. September 04: ICU. On ventilator FiO2 45%. PEEP of 5. Clear trach secretions. Getting IV TPN lipids. IV tobramycin. And IV Avycaz. Remains afebrile.. On Levophed and vasopressin. Awake. 09/06/2024 Patient is seen and evaluated in ICU; remains on mechanical ventilator, actually his home ventilator, with settings of volume assist-control, rate 20, tidal volume 450, FiO2 45%, PEEP of 5. - patient has been refusing blood; no ABGs to. He is getting lactated Ringer's at 50 cc an hour, TPN at 65 cc an hour. - patient remains on the same antibiotics. - Labs reviewed which reveal white count 5.21, hemoglobin 7.9, hematocrit 27.5, and platelet count 64,000. Sodium 141, potassium 3.5, chlorides 102, CO2 32, BUN 25, and creatinine 0.35. Glucose is 152. Calcium is 8. Albumin is 2.1. -Chest x-ray is largely unchanged. Critical care managing mechanical ventilation; recommending to add scopolamine patch for increased secretion -Patient remains on Avycaz and tobramycin - Continue with current TPN 09/07 Patient remains in the ICU lethargic. He is s/p tracheostomy Overnight he was more hypoxic they have to increase PEEP to 8. Also has a lot of secretions when needed for secretions suctioning to try to become apneic per Staff. Patient currently receiving Avycaz and tobramycin. on TPN also 09/08 Patient remains in the ICU awake and alert status post tracheostomy. He has contractures of both upper and lower extremities He is complaining from pain in his lungs. He is status post flexible bronchoscopy and bronchoalveolar lavage yesterday. He has previous sputum culture positive for Pseudomonas currently covered with ceftazidime and tobramycin. He is also on Lovenox 90 mg 09/09 Patient still in the ICU on mechanical ventilation via tracheostomy. PEEP is 8.0 as is yesterday Also he spiked little fever to 100.7. IV vancomycin is added to tobramycin and ceftazidime He is getting also bronchoscopy follow-up culture results 09/10 Patient feels clinically the same, he still getting breathing via mechanical ventilation through his tracheostomy with PEEP of 8. Patient feels he is required suctioning through his tracheostomy tube. He denies chest pain or pain anywhere else he can communicate by head signs and gestures. Hemodynamically stable and afebrile hemoglobin 7.4 platelet count 73 Glucose is controlled potassium 3.3 He remains on broad-spectrum antibiotic Rocephin at this time tobramycin and IV vancomycin added yesterday because he had low-grade fever. He is getting TPN. IV fluid Ringer lactate was stopped and patient was started on IV Lasix 20 mg 3 times a day continue with therapeutic dose of Lovenox as well 09/11 Patient remains in the ICU Remains on mechanical ventilation via tracheostomy He status post bronchoalveolar lavage 2 days ago, culture is growing Pseudomonas aeruginosa and corynebacterium Patient remains on broad-spectrum antibiotics with IV vancomycin, tobramycin, ceftazidime On IV Lasix also is on therapeutic dose of Lovenox 90 mg twice daily No IV fluids 09/12 Patient remains in the ICU Clinically close to what he was over the last 2 days still getting oxygen via his tracheostomy He remains on broad-spectrum antibiotic with Ceftin this time and IV vancomycin. Also he is on IV Lasix 20 mg and therapeutic dose of Lovenox. 09/13 Patient remains in the ICU on mechanical ventilation via tracheostomy Patient looks better today, he breathing better Less secretion Fentanyl patch increased 09/14. Patient seen and examined. Patient continues to be on mechanical ventilation via trach mask. Currently on TPN. Currently on IV Zerbaxa and vancomycin 09/15. Patient seen and examined.Vital signs done showed the patient overnight, heart rate 106, blood pressure 107/40, currently on ventilation. Labs reviewed showed WBC 7.27, hemoglobin 7.5, sodium 148 on potassium 4.3, BUN 23, creatinine 0.47 09/16. Patient seen and examined labs reviewed showing WBC 5.45, hemoglobin 9.6, platelet count 131, sodium 146, potassium 4.1, BUN 20, creatinine 0.47. Continue small amount of Levophed. Currently on Zerbaxa and vancomycin. Currently on TPN September 17: ICU. Patient has taken a turn for the worse today. Significant thick white secretions from the trach. Sinus rhythm. Receiving TPN. Patient is on Levophed and vasopressor. Rather high dose. FiO2 [address] of 10. [address] Ho earlier spoke to the patient/family. Remains full code September 18: ICU. Intubated FiO2 70 PEEP of 12. Sinus rhythm. Drips include IV propofol at 50 and Levophed at 0.13. Patient is off vasopressin. Patient secretions. Family at the bedside. September 19: ICU. Intubated. FiO2 50 and a PEEP of 12. Drips include IV Levophed and propofol. Also started on Lasix drip 10 mg an hour yesterday. Secretions present. September 20: ICU. Intubated. FiO2 50 and a PEEP of 12. Hemoglobin 6.3. Secondary to blood being given. Patient been on and off Levophed. On propofol. Lipids have been held. Continues with TPN. Lasix drip was discontinued. Lovenox has been held because of low hemoglobin. Unable anemia is felt to be combination of regular blood draws and possible element element of hemolysis from all the infection. No dark stool. Family at the bedside September 21: ICU. Intubated. Received 2 units of blood yesterday. Hemoglobin 7.6 today. Per nephrology renal replacement therapy. Dialysis access placed by Dr. Cadena. Patient earlier today on Levophed. Propofol. Getting TPN. Sinus rhythm. Urine output decreased September 22: ICU. Intubated. FiO2 15 of PEEP of 12. Seen earlier today. Dialysis being started. Been on IV Levophed propofol. Sinus rhythm. TPN. Sinus rhythm. September 23: ICU. Intubated. Due for another dialysis today. Saw the patient earlier today. Remains on IV Levophed propofol. Sinus rhythm. TPN. On fentanyl patch. September 24: ICU. Intubated. FiO2 40 and PEEP of 12. Remains on IV Levophed and propofol. IV TPN. Decrease trach secretions. IV antibiotics. Was due for dialysis earlier today. September 25: ICU. Intubated. FiO2 30%. Patient getting IV Levophed and propofol. IV TPN. Dialysis today. Receiving IV antibiotics. Does opens eyes occasionally. Some commands per nursing. September 26: ICU. Intubated. FiO2 30 and a PEEP of 8. Had 2 L hemodialysis removed yesterday. Getting hemodialysis today. Aiming for 2 to 3 L. Patient is on propofol. Currently Levophed on hold. Getting TPN. Patient is actually awake and following commands. Sinus rhythm. September 27: ICU. Intubated. FiO2 39 PEEP of 8. No dialysis today. Remains on IV Levophed propofol. TPN. There is a bedside. Patient asked me how is he doing. Had a lengthy information in terms of his guarded prognosis. Did tell him it is his choice about how he wishes to proceed. He needs to decide between treatment benefits versus in the suffering because of that entails from treatment and his recurrent infections etc. Especially in the context of decreased activity. Kidney failure, respiratory failure etc. September 28: ICU. Intubated. FiO2 30 and a PEEP of 8. For dialysis today. Off Levophed this morning. IV propofol. TPN. Some clear light to trach secret ions. Colostomy working. Poor urine output. September 29: ICU. Intubated. IV propofol Levophed. TPN. Awake. Discussed with Dr. Holt. Prognosis very poor. Probably treatment is the point of getting futile. Patient needs about 34 more days to go to long-term ventilator setting. September 30: ICU. Intubated. IV propofol. Currently off Levophed. TPN. Getting dialysis today. Awake. IV antifungal. Given a unit of blood for hemoglobin of 6.9 October 01: ICU. Intubated. IV propofol. Remains on Levophed. TPN dose adjusted. Dialysis. IV aniedulefungin. Eyes open. Vent. FiO2 30%. PEEP 5 September 18: ICU. Intubated. IV propofol. Off Levophed. TPN. Dialysis today. IV aniedulefungin last day on October 06. Per ID. Some trach secretions clear October 03: ICU. Intubated. IV propofol. TPN. Dialysis schedule will now be Saturday. Next dialysis will be on coming Saturday. IV aniedulefungin last day-I October 06. Minimal urine output-5 to 10 cc an hour. Awake. October 04: ICU. Intubated. IV propofol. TPN. Next dialysis on Saturday. IV elevated Lida function. Urine output remains to be minimal. Awake. Mother at the bedside. Does not have any questions. Sinus rhythm. 10/05/2024 Patient seen in follow-up today remains in the ICU on mechanical ventilation FiO2 is 30%. Patient is requiring some small dose Levophed as blood pressures were low maintained on hemodialysis. Multiple consultations following including infectious disease the patient is maintained on Eraxis which will be completed after October 06, 2024. Patient is continued on TPN and will continue. Prognosis remains poor and guarded at this time. Social history: Patient started smoking at the age of [age] 1 pack a day stopped in 2017. Nonambulatory. Is cared by his son over. Who is also the DPOA Physical examination: GENERAL:, 49-year-old male who was asleep continued on mechanical ventilation via tracheostomy EYES: Pupils equal. Conjunctiva loan l. HEENT: External appearance of nose and ears normal, oral cavity dry NECK: JVD unable to assess; masses not palpable. Tracheostomy HEART: First and second heart sounds are normal; no edema. LUNGS: decreased breath sounds bilaterally, some crackles ABDOMEN: Soft, nontender, liver spleen not palpable, no masses palpable. Giovanna ble barrel ostomy. PSYCH: Following simple commands MUSCULOSKELETAL: Right BKA. Left foot drop. Left hand contracture. Right hand also with contracture but able to have some movements NEUROLOGICAL: Cranial nerves grossly intact; no facial asymmetry, slight movement in the right arm. INVESTIGATIONS, reviewed in the clinical context: October 04: White count 5.9 hemoglobin 7.9 potassium 4.5 BUN 59 creatinine 1.9 phosphorus 1.5 September 17: White count 20 hemoglobin 8.5 platelets 199 potassium 4.2 BUN 25 creatinine 0.4. ABG: pH 7.17 pCO2 79 PO277. September 02: White count 3.6 hemoglobin 9.7 platelets 130 potassium 3.9 BUN 23 creatinine 0.36 ionized calcium 4.3 TSH 2.7 Sputum culture: Pseudomonas aeruginosa: Sensitive to Zosyn, tobramycin, ceftazidime Sputum culture: Pseudomonas aeruginosa August 30: White count 3.5 hemoglobin 10.0 platelets 133 potassium 3.5 creatinine 0.36 August 29, 2024: White count 6.2 hemoglobin 12.3 platelets 216 sodium 128 potassium 3.1 BUN 50 creatinine 0.46 lactic acid 2.1 calcium 10.8 phosphorus 3.0 troponin I 0.016 UA: Negative for nitrite Influenza type A, type B, RSV, SARS-CoV-2: Not detected Previous labs: Sputum culture September 19, 2024: Pseudomonas aeruginosa Assessment plan: - Basilar pneumonia. Previous admission sputum was positive for Pseudomonas aeruginosa - Candidemia likely source left chest wall PICC line that has been discontinued. And repeat blood cultures on September 22 negative. Line changes are being followed by ID IV Eraxis-last days October 06 per ID - Fluid overload Had received Lasix drip - Acute kidney injury from ATN from septic shock. And possibly vancomycin toxicity. Oliguric. Volume overload. First dialysis was on September 22.-Has been getting dialysis nearly daily. From now on dialysis schedule be Saturday - Metabolic alkalosis - Septic shock: Levophed has been on and off, blood pressures softer today requiring low-dose Levophed - Acute on chronic hypoxic and hypercapnic respiratory failure, vent dependent at night at home: On ventilator support. Propofol - Tracheostomy with trach collar -Acute normocytic anemia of chronic disease and hospital-acquired anemia from blood draws and possible hemolysis from infection Has received 6 units of blood - Thrombocytopenia likely from sepsis: Corrected - Right below-knee amputation history - Chronic quadriparesis. Including left foot drop. Left arm contracture. Some right hand contracture. Some movement in the right arm - Crohn's disease with double barrel ostomy bag in place since 09/2021 - TPN and lipids Lipids have been held during propofol - Full code - DPOA, haylee PENA Plan: Patient remains in the ICU on mechanical ventilation with an FiO2 of 30% via tracheostomy Continued per propofol along with Dilaudid Patient is receiving Eraxis to be completed by 10/06/2024 per ID recommendations Continue current supportive care Case management/social work following and awaiting new insurance to become effective regarding discharge planning which will require LTAC Overall prognosis is extremely poor and per family and patient, CODE STATUS remains full code The impression and plan of care has been dictated by Alyssa Hernandez, Nurse Practitioner as directed. Dr. Vicente MD I have performed a history and examination and MDM of this patient, discussed the same with the dictator, and agree with the dictator's assessment and plan as written ,documented as a scribe. Based on total visit time, I have performed more than 50% of the visit. Objective - Vital Signs Vital signs: Vital Signs Temp 98.1 F 10/05/24 08:00 Pulse 98 10/05/24 09:00 Resp 33 H 10/05/24 09:00 BP 132/68 10/05/24 09:00 Pulse Ox 97 10/05/24 09:00 FiO2 30 10/05/24 09:11 Intake & Output 10/04/24 10/05/24 10/05/24 18:59 06:59 18:59 Intake Total 2507.066 2220.111 294 Output Total 20 725 10 Balance 2487.066 1495.111 284 Weight 93.6 kg Intake: IV 260 143 39 0.9 KVO 100 110 30 Anidulafungin 100 mg In 100 Sodium Chloride 0.9% 100 ml @ 84 mls/hr IVPB DAILY [facility] Rx#:[id number] Pressure Bag 60 33 9 Intake, IV Titration 7465.133 4455.111 Amount Mvi, Adult No.4 with Vit 1077 K 10 ml Trace (Conc-1Ml/ Dose) 1 ml Sodium Acetate 40 meq Sodium Chloride 4Meq/ml Vial 80 meq Calcium Gluconate 0.5 gm Potassium Chloride 30 meq Magnesium Sulfate gm 0.5 gm Potassium Phosphate 15 mmol In Amino Acids 5 %/Dextrose 20 % 1,000 ml @ 85 mls/hr IV .BY DURATION [facility] Rx#: [id number] Sodium Acetate 40 meq 1066 Sodium Chloride 4Meq/ml Vial 80 meq Calcium Gluconate 0.5 gm Potassium Chloride 30 meq Magnesium Sulfate gm 0.5 gm Potassium Phosphate 15 mmol In Amino Acids 5 %/Dextrose 20 % 1,000 ml @ 85 mls/hr IV .BY DURATION [facility] Rx#: [id number] Sodium Phosphate 30 mmol 250 In Dextrose 5% in Water 250 ml @ 65 mls/hr IVPB ONCE ONE Rx#:[id number] propofoL 1,000 mg In 81.066 65.111 Empty Bag 1 bag @ 50 MCG/ KG/MIN 32.34 mls/hr IV . Q3H6M [facility] Rx#:[id number] TPN/PPN 850 935 255 TPN 850 935 255 Output: Urine 20 25 10 Stool 700 Other: Voiding Method Indwelling Catheter Indwelling Catheter Indwelling Catheter ABP, PAP, CO, CI - Last Documented Arterial Blood Pressure - Labs CBC & Chem 7: 10/05/24 03:55 10/05/24 03:55 Labs: Abnormal Lab Results - Last 24 Hours (Table) 10/04/24 10/04/2410/05/25 Range/Units 17:48 23:48 03:55 RBC (4.40-5.60) 10*6/uL Hgb (13.0-17.0) g/dL Hct (39.6-50.0) % MCHC (32.0-37.0) g/dL Sodium 130 L (137-145) mmol/L Potassium 5.2 H (3.5-5.1) mmol/L Chloride 97 L (98-107) mmol/L Carbon Dioxide 21 L (22-30) mmol/L BUN 79 H (9-20) mg/dL Creatinine 2.61 H (0.66-1.25) mg/dL Glucose 178 H (74-99) mg/dL POC Glucose (mg/dL) 134 H 149 H (70-110) mg/dL Total Bilirubin 2.7 H (0.2-1.3) mg/dL ALT 59 H (4-49) U/L Alkaline Phosphatase 165 H (38-126) U/L Albumin 2.5 L (3.5-5.0) g/dL 10/05/24 10/05/24 Range/Units 03:55 05:43 RBC 2.56 L (4.40-5.60) 10*6/uL Hgb 7.0 L (13.0-17.0) g/dL Hct 22.9 L (39.6-50.0) % MCHC 30.6 L (32.0-37.0) g/dL Sodium (137-145) mmol/L Potassium (3.5-5.1) mmol/L Chloride (98-107) mmol/L Carbon Dioxide (22-30) mmol/L BUN (9-20) mg/dL Creatinine (0.66-1.25) mg/dL Glucose (74-99) mg/dL POC Glucose (mg/dL) 177 H (70-110) mg/dL Total Bilirubin (0.2-1.3) mg/dL ALT (4-49) U/L Alkaline Phosphatase (38-126) U/L Albumin (3.5-5.0) g/dL
[2024-10-06 05:28] LABS: Glucose,Whole Blood 313 mg/dL (70-110)
[2024-10-06 06:04] LABS: African American GFR (CKD) 57 (>60 ml/min/1.73 sqM); Anion Gap 12 mmol/L; Blood Urea Nitrogen 47 mg/dL (9-20); Calcium 8.7 mg/dL (8.4-10.2); Carbon Dioxide 24 mmol/L (22-30); Chloride 95 mmol/L (98-107); Glucose 291 mg/dL (74-99); Magnesium 1.7 mg/dL (1.6-2.3); Non-African American GFR(CKD) 49 (>60 ml/min/1.73 sqM); Potassium 4.2 mmol/L (3.5-5.1); Sodium 131 mmol/L (137-145)
[2024-10-06 07:05] LABS: HCT 25.6 % (39.6-50.0); HGB 7.6 g/dL (13.0-17.0); MCH 27.0 pg (27.0-32.0); MCHC 29.7 g/dL (32.0-37.0); MCV 91.1 fL (80.0-97.0); Platelet Count 195 10*3/uL (140-440); RBC 2.81 10*6/uL (4.40-5.60); RDW 20.2 % (11.5-14.5); WBC 8.08 10*3/uL (4.50-10.00)
--- NOTE | 2024-10-06 08:26 | XR ---
EXAMINATION TYPE: XR chest 1V portable DATE OF EXAM: 10/06/2024 5:11 AM COMPARISON: 10/05/2024 CLINICAL INDICATION: Male, 49 years old with history of mechanically ventilated, difficulty breathing TECHNIQUE: XR chest 1V portable view(s) obtained. FINDINGS: The heart size is normal. The pulmonary vasculature is normal. This has improved from comparison. Minimal left pleural effusion may be present. Aeration improved over the interval. Tracheostomy tube tip is in the midline. Double-lumen catheter tips are deep within the atrium. IMPRESSION: 1. Suggestion of minimal left pleural effusion. 2. Lines and catheters discussed above. 3. Improved aeration from prior comparison study [facility], Workstation: [facility], 10/06/2024 8:23 AM
--- NOTE | 2024-10-06 10:34 | P.PN ---
Subjective Patient is seen for follow-up for acute kidney injury. Patient remains on the vent. He is awake. Started hemodialysis on 09/22/2024 for volume overload and worsening acute kidney injury Patient remains oliguric. FiO2 at 30% Volume status has improved. No significant issues today. Objective - Vital Signs Vital signs: Vital Signs Temp 99.2 F 10/06/24 08:00 Pulse 107 H 10/06/24 08:00 Resp 27 H 10/06/24 08:00 BP 129/67 10/06/24 08:00 Pulse Ox 96 10/06/24 08:00 FiO2 30 10/06/24 08:22 Intake & Output 10/05/24 10/06/24 10/06/24 18:59 06:59 18:59 Intake Total 1365.072 5811.985 209.678 Output Total 5839 920 5 Balance -4063.501 466.985 204.678 Weight 89.7 kg Intake: IV 156 153 26 0.9 KVO 120 120 20 Pressure Bag 36 33 6 Intake, IV Titration 99.499 213.985 13.678 Amount Norepinephrine 8 mg In 149.413 13.678 Sodium Chloride 0.9% 250 ml @ 0.03 MCG/KG/MIN 6. 513 mls/hr IV .Q24H [facility] Rx#:[id number] propofoL 1,000 mg In 99.499 64.572 Empty Bag 1 bag @ 50 MCG/ KG/MIN 32.34 mls/hr IV . Q3H6M [facility] Rx#:[id number] TPN/PPN 1020 1020 170 TPN 1020 1020 170 Hemodialysis 500 Output: Urine 25 20 5 Stool 700 900 Hemodialysis 2807 Hemodialysis Net Amount 2307 Other: Voiding Method Indwelling Catheter Indwelling Catheter Indwelling Catheter ABP, PAP, CO, CI - Last Documented Arterial Blood Pressure - Exam Patient is on the vent he is awake. Examination of the heart S1 and S2 Tracheostomy noted Examination of the lungs bilateral breath sounds are heard Abdomen is distended Examination of lower extremities shows right BKA and 2+ edema in the left leg - Labs CBC & Chem 7: 10/06/24 06:50 10/06/24 04:57 Labs: Abnormal Lab Results - Last 24 Hours (Table) 10/05/24 10/05/24 10/05/24 Range/Units 11:49 17:56 22:38 RBC (4.40-5.60) 10*6/uL Hgb (13.0-17.0) g/dL Hct (39.6-50.0) % MCHC (32.0-37.0) g/dL ABG pCO2 (35-45) mmHg ABG pO2 (83-108) mmHg ABG HCO3 (21-25) mmol/L ABG Total CO2 (19-24) mmol/L ABG O2 Saturation (94-97) % Hemoglobin (13.0-17.5) gm/dL Sodium (137-145) mmol/L Chloride (98-107) mmol/L BUN (9-20) mg/dL Creatinine (0.66-1.25) mg/dL Glucose (74-99) mg/dL POC Glucose (mg/dL) 176 H 231 H 241 H (70-110) mg/dL 10/06/24 10/06/24 10/06/24 Range/Units 03:53 04:57 05:25 RBC (4.40-5.60) 10*6/uL Hgb (13.0-17.0) g/dL Hct (39.6-50.0) % MCHC (32.0-37.0) g/dL ABG pCO2 48 H (35-45) mmHg ABG pO2 81 L (83-108) mmHg ABG HCO3 27 H (21-25) mmol/L ABG Total CO2 28 H (19-24) mmol/L ABG O2 Saturation 97.1 H (94-97) % Hemoglobin 8.1 L (13.0-17.5) gm/dL Sodium 131 L (137-145) mmol/L Chloride 95 L (98-107) mmol/L BUN 47 H (9-20) mg/dL Creatinine 1.62 H (0.66-1.25) mg/dL Glucose 291 H (74-99) mg/dL POC Glucose (mg/dL) 313 H (70-110) mg/dL 10/06/24 Range/Units 06:50 RBC 2.81 L (4.40-5.60) 10*6/uL Hgb 7.6 L (13.0-17.0) g/dL Hct 25.6 L (39.6-50.0) % MCHC 29.7 L (32.0-37.0) g/dL ABG pCO2 (35-45) mmHg ABG pO2 (83-108) mmHg ABG HCO3 (21-25) mmol/L ABG Total CO2 (19-24) mmol/L ABG O2 Saturation (94-97) % Hemoglobin (13.0-17.5) gm/dL Sodium (137-145) mmol/L Chloride (98-107) mmol/L BUN (9-20) mg/dL Creatinine (0.66-1.25) mg/dL Glucose (74-99) mg/dL POC Glucose (mg/dL) (70-110) mg/dL Assessment and Plan Assessment: 1. Acute kidney injury secondary to ATN secondary to septic shock and vancomycin toxicity. Vancomycin level 49.3 on 09/19/2024. Patient remains oliguric with significant volume overload noted. Started hemodialysis on 09/22/2024. 2. Septic shock secondary to pneumonia and fungemia. 3. Acute blood loss anemia status post packed RBCs transfusion. Hemoglobin stable at 7.1 to 7.9 mg/dL. 4. Volume overload. 5. Chronic hypoxic and hypercapnic respiratory failure, home ventilator dependent. 6. History of cardiac arrest. 8. Status post right BKA. Plan: Next hemodialysis on 10/07/2024 Maintained on TPN Continue to monitor electrolytes.
[2024-10-06] MEDS: HYDROCORTISONE SUCCINATE 100 MG/2 ML VIAL IV SCH (10:42)
[2024-10-06] MEDS: MAGNESIUM SULFATE-D5W PMX 1 GM in DEXTROSE/WATER 1 100ML.BAG IVPB ONE (10:42)
[2024-10-06] MEDS: SODIUM ACETATE IV SCH (10:43)
[2024-10-06] MEDS: [UNRECOGNIZED DRUG - OTHER] IV SCH (10:43)
[2024-10-06] MEDS: SODIUM CHLORIDE IV SCH (10:43)
[2024-10-06 11:55] LABS: Glucose,Whole Blood 331 mg/dL (70-110)
--- NOTE | 2024-10-06 12:45 | P.PN ---
Subjective Progress Note Date: 10/06/24 Principal diagnosis: Acute on chronic hypoxic respiratory failure secondary to bilateral pneumonia secondary to multidrug resistant Pseudomonas aeruginosa., Candidemia/fungemia This is a 49-year-old white male familiar to my service, history of paraplegia, home vent dependent, history of tracheostomy, patient had multiple admissions to the ICU for recurrent episodes of pneumonia and respiratory failure requiring ventilatory support. On his last admission patient was eventually discharged home on a home ventilator, and this was back on 08/04/2024. Patient was discharged home with a PICC line, patient was in the ER yesterday on 08/28 for abnormal labs mostly low potassium and low sodium discharged home however he came back today complaining of shortness of breath, has been ventilator dependent all along. Chest x-ray showed basically bibasilar opacities/atelectasis, doubt pneumonia, the findings in the left lower lobe are chronic. Patient did have previous history of pneumonia involving the left lower lobe and he had multiple bronchoscopies in the past. Bronchial cultures and sputum cultures have been positive in the past for mostly Pseudomonas aeruginosa. Patient was seen in the ER today, and he is already on cefepime for empiric coverage for potential left lower lobe pneumonia, patient had abnormal electrolytes with relatively low sodium low potassium, no leukocytosis, normal renal profile, blood pressure was soft, and he was given fluid boluses. Lactic acid was 2.1, D-dimer is normal, patient was admitted, and this consult was initiated. 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 On 10/03/2024, the patient is clinically unchanged. Remains on propofol at 10 mcg/kg/min. Calm and comfortable. Responsive and awake. Evening was uneventful. Remains on a mechanical ventilator. Assist-control of 24, tidal volume of 400, FiO2 30% with a PEEP of 5. No blood gases from today. Follow-up chest x-ray from today is showing stable findings without any acute interval ch kelvin and the patient continues to have persistent interstitial opacities bilaterally. The patient remains on TPN at rate of 85 cc an hour. Off pressors. White cell count is 6 with hemoglobin 7.1 and a platelet count of 206. BUN 34 with a creatinine of 1.3. Sodium is at 133. On 10/04/2024, there is absolutely no change in the patient's condition. The patient is resting comfortably on propofol low-dose at 10 mcg. He remains on mechanical ventilator, unable to wean him off the mechanical ventilator and is vent dependent with an assist-control mode at rate of 24, tidal volume of 400, FiO2 of 30% and the PEEP of 5. Chest x-ray remains unchanged. The patient is afebrile and hemodynamically stable, completing the course of Eraxis. Remains on TPN for nutritional support rate of 55 cc an hour. Urine output is minimal and undergoing periodic hemodialysis. The white cell count is 5.9, hemoglobin 7.9, BUN is 59 with a creatinine of 1.9. Potassium levels of 4.5. Next hemodialysis session is on 10/05/2024. Patient was seen today on 10/05/2024, remains in the ICU, intubated mechanically ventilated, on assist-control rate of 24 tidal volume 400 FiO2 30% and PEEP of 5. Remains on propofol 10 mcg/kg/min remains on TPN at 85 cc/h remains on Eraxis patient is sedated but he is arousable and he follows simple instructions. However he is profoundly weak not to mention the patient is p araplegic. Labs today show WBC count of 5.9 hemoglobin is 7 electrolytes are relatively normal bicarb is 21 BUN is 79 creatinine 2.61 patient is receiving hemodialysis this morning. Liver enzymes are a bit elevated with bilirubin of 2.7 AST 39 ALT 59 and alkaline phosphatase of 165. Albumin is 2.5. Chest x-ray continues to show left-sided double-lumen dialysis catheter there is also ongoing pulmonary vascular congestion, possible minimal infiltrates. Medications were reviewed patient remains on Eraxis, Peridex, Aranesp, fentanyl patches, heparin subcu every 8 hours, Dilaudid as needed, insulin as per protocol, DuoNeb updraft 4 times daily and as needed, Ativan as needed, presently off norepinephrine, continues to be on Zofran as needed and Protonix, propofol, and he is off antibiotics except for his Eraxis. Seen today on 10/06/2024, remains in the ICU, intubated and mechanically marge tilated, he is on assist-control rate of 24 tidal volume 400 FiO2 30% and PEEP of 5. ABG showed a PO2 of 81 pCO2 48 pH of 7.35. Patient is on norepinephrine at 0.05 mcg/kg/min he has borderline blood pressure requiring norepinephrine this morning, hence I went back and placed the patient on Solu-Cortef which was discontinued few days ago. Remains on Eraxis stopped date will be today. Patient is on TPN at 85 mL/h. He is still intermittently getting hemodialysis. Patient is arousable in spite of being on propofol, follows instructions but he looks chronically ill, frail, and debilitated. WBC count today is 8.0 hemoglobin 7.6 hematocrit 25.6 blood sugar is 331. Renal profile showed BUN of 47 creatinine 1.62 otherwise the rest of the labs were unremarkable. Chest x- ray continues to show small minimal pleural effusion and improved aeration compared to prior studies. Medications will all reviewed on Eraxis, Peridex, Aranesp, fentanyl patches, heparin subcu every 8 hours, Dilaudid as needed, insulin as per protocol, DuoNeb updraft 4 times daily and as needed, Ativan as needed, presently off norepinephrine, continues to be on Zofran as needed and Protonix, propofol, and he is off antibiotics except for his Eraxis. Objective - Vital Signs Vital signs: Vital Signs Temp 99.2 F 10/06/24 08:00 Pulse 94 10/06/24 10:00 Resp 24 10/06/24 10:00 BP 105/45 10/06/24 10:00 Pulse Ox 98 10/06/24 10:00 FiO2 30 10/06/24 11:15 Intake & Output 10/05/24 10/06/24 10/06/24 18:59 06:59 18:59 Intake Total 4658.931 0474.985 292.761 Output Total 5839 920 5 Balance -4063.501 466.985 287.761 Weight 89.7 kg 89.7 kg Intake: IV 156 153 52 0.9 KVO 120 120 40 Pressure Bag 36 33 12 Intake, IV Titration 99.499 213.985 20.761 Amount Norepinephrine 8 mg In 149.413 13.678 Sodium Chloride 0.9% 250 ml @ 0.03 MCG/KG/MIN 6. 513 mls/hr IV .Q24H ANNIE Rx#:[id number] Sodium Acetate 40 meq 7.083 Sodium Chloride 4Meq/ml Vial 90 meq Calcium Gluconate 0.5 gm Potassium Chloride 30 meq Magnesium Sulfate gm 0.5 gm Sodium Phosphate 15 mmol In Amino Acids 5 %/ Dextrose 20 % 1,000 ml @ 85 mls/hr IV .BY DURATION ANNIE Rx#:[id number] propofoL 1,000 mg In 99.499 64.572 Empty Bag 1 bag @ 50 MCG/ KG/MIN 32.34 mls/hr IV . Q3H6M ANNIE Rx#:[id number] TPN/PPN 1020 1020 220 TPN 1020 1020 220 Hemodialysis 500 Output: Urine 25 20 5 Stool 700 900 Hemodialysis 2807 Hemodialysis Net Amount 2307 Other: Voiding Method Indwelling Catheter Indwelling Catheter Indwelling Catheter ABP, PAP, CO, CI - Last Documented Arterial Blood Pressure - Exam GENERAL EXAM: 49-year-old white male intubated mechanically ventilated patient has a chronic tracheostomy, patient is sedated on propofol. HEAD: Normocephalic. Tracheostomy is intact. Left IJ hemodialysis catheter is noted. EYES: Normal reaction of pupils, equal size. NOSE: Clear with pink turbinates. THROAT: Tracheostomy tube secured in place. NECK: No masses, no JVD. CHEST: No chest wall deformity. LUNGS: Continues to have coarse rhonchi bilaterally. CVS: S1 and S2 normal with no audible murmur, regular rhythm. ABDOMEN: Enterocutaneous fistula over the abdominal wall. No hepatosplenomegaly, normal bowel sounds. SKIN: No rashes, patient is quite edematous CENTRAL NERVOUS SYSTEM: Awake, follows simple instructions but profoundly weak. EXTREMITIES: Bilateral edema, extensive muscle atrophy. Contractures. There is no peripheral edema. No clubbing, no cyanosis. Peripheral pulses are intact. Right below-knee amputation is noted. - Labs CBC & Chem 7: 10/06/24 06:50 10/06/24 04:57 Labs: Abnormal Lab Results - Last 24 Hours (Table) 10/05/24 10/05/24 10/06/24 Range/Units 17:56 22:38 03:53 RBC (4.40-5.60) 10*6/uL Hgb (13.0-17.0) g/dL Hct (39.6-50.0) % MCHC (32.0-37.0) g/dL ABG pCO2 48 H (35-45) mmHg ABG pO2 81 L (83-108) mmHg ABG HCO3 27 H (21-25) mmol/L ABG Total CO2 28 H (19-24) mmol/L ABG O2 Saturation 97.1 H (94-97) % Hemoglobin 8.1 L (13.0-17.5) gm/dL Sodium (137-145) mmol/L Chloride (98-107) mmol/L BUN (9-20) mg/dL Creatinine (0.66-1.25) mg/dL Glucose (74-99) mg/dL POC Glucose (mg/dL) 231 H 241 H (70-110) mg/dL 10/06/24 10/06/24 10/06/24 Range/Units 04:57 05:25 06:50 RBC 2.81 L (4.40-5.60) 10*6/uL Hgb 7.6 L (13.0-17.0) g/dL Hct 25.6 L (39.6-50.0) % MCHC 29.7 L (32.0-37.0) g/dL ABG pCO2 (35-45) mmHg ABG pO2 (83-108) mmHg ABG HCO3 (21-25) mmol/L ABG Total CO2 (19-24) mmol/L ABG O2 Saturation (94-97) % Hemoglobin (13.0-17.5) gm/dL Sodium 131 L (137-145) mmol/L Chloride 95 L (98-107) mmol/L BUN 47 H (9-20) mg/dL Creatinine 1.62 H (0.66-1.25) mg/dL Glucose 291 H (74-99) mg/dL POC Glucose (mg/dL) 313 H (70-110) mg/dL 10/06/24 Range/Units 11:53 RBC (4.40-5.60) 10*6/uL Hgb (13.0-17.0) g/dL Hct (39.6-50.0) % MCHC (32.0-37.0) g/dL ABG pCO2 (35-45) mmHg ABG pO2 (83-108) mmHg ABG HCO3 (21-25) mmol/L ABG Total CO2 (19-24) mmol/L ABG O2 Saturation (94-97) % Hemoglobin (13.0-17.5) gm/dL Sodium (137-145) mmol/L Chloride (98-107) mmol/L BUN (9-20) mg/dL Creatinine (0.66-1.25) mg/dL Glucose (74-99) mg/dL POC Glucose (mg/dL) 331 H (70-110) mg/dL Assessment and Plan Assessment: Impression: Acute on chronic hypoxic respiratory failure still intubated and mechanically ventilated, multifactorial but mostly related to multidrug-r esistant Pseudomonas aeruginosa pneumonia., And now he has candidemia/Bella parapsilosis group Septic shock, secondary to above and previously pseudomonal pneumonia Candidemia with positive yeast in blood cultures has been on treatment for the last 3 weeks receiving Eraxis. Cultures from the eighth were negative repeat cultures are pending. Chronic hypoxic and hypercapnic respiratory failure, patient is ventilator dependent, patient has been recently on home ventilator History of severe tracheal stenosis History of tracheostomy History of recurrent pneumonias involving left lower lobe Tracheobronchomalacia History of DVT History of CVA History of right below-knee amputation History of asystole/cardiac arrest 2021. 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 Patient is maintained mostly on TPN. Bipedal edema with fluid overload hence patient was placed on Lasix. Recommendation: Continue ventilatory support, patient was on home ventilation prior to this admission. Continue Eraxis for his candidemia/fungal sepsis, this is being addressed by infectious disease on the case, ordered fungal blood cultures today. Today according to the nurses will be the last day of Eraxis. Continue TPN/nutritional support Continue hemodialysis as felt necessary by nephrology on the case. Continue GI and DVT prophylaxis/Protonix Continue bronchodilators Remains very critically ill. Patient to go back on Solu-Cortef 50 mg IV push every 8 hours, he was on Solu-C ortef all along but was discontinued few days ago, and considering he has low blood pressure today it is best to restart Solu-Cortef. Critical care time is 33 minutes Overall prognosis remains extremely poor. We will continue to follow Time with Patient: Greater than 30
--- NOTE | 2024-10-06 14:38 | P.PN ---
Subjective Progress Note Date: 10/06/24 Principal diagnosis: Reason for follow-up is sepsis and pneumonia/candidemia Patient is a 49-year-old male with a past medical history significant for CVA TIA DVT pneumonia history of complicated Crohn's disease in this patient who did have multiple abdominal surgeries patient also have a tracheostomy has been brought to the hospital with Generalized weakness did have a fever concerning for pneumonia on today's evaluation that is 10/06/2024, Patient is afebrile this morning patient remains to be debated on the vent currently on 30% FiO2 patient requiring low-dose pressor support, no new symptoms as reported by the patient. Patient white count is 8.08 creatinine 1.62 Objective - Vital Signs Vital signs: Vital Signs Temp 98.8 F 10/06/24 12:00 Pulse 100 10/06/24 14:00 Resp 24 10/06/24 14:00 BP 132/63 10/06/24 14:00 Pulse Ox 95 10/06/24 14:00 FiO2 30 10/06/24 12:00 Intake & Output 10/05/24 10/06/24 10/06/24 18:59 06:59 18:59 Intake Total 2894.619 6850.985 701.622 Output Total 5839 920 10 Balance -4063.501 466.985 691.622 Weight 89.7 kg 89.7 kg Intake: IV 156 153 104 0.9 KVO 120 120 80 Pressure Bag 36 33 24 Intake, IV Titration 99.499 213.985 37.622 Amount Norepinephrine 8 mg In 149.413 30.539 Sodium Chloride 0.9% 250 ml @ 0.03 MCG/KG/MIN 6. 513 mls/hr IV .Q24H ANNIE Rx#:[id number] Sodium Acetate 40 meq 7.083 Sodium Chloride 4Meq/ml Vial 90 meq Calcium Gluconate 0.5 gm Potassium Chloride 30 meq Magnesium Sulfate gm 0.5 gm Sodium Phosphate 15 mmol In Amino Acids 5 %/ Dextrose 20 % 1,000 ml @ 85 mls/hr IV .BY DURATION ANNIE Rx#:[id number] propofoL 1,000 mg In 99.499 64.572 Empty Bag 1 bag @ 50 MCG/ KG/MIN 32.34 mls/hr IV . Q3H6M ANNIE Rx#:[id number] TPN/PPN 1020 1020 560 TPN 1020 1020 560 Hemodialysis 500 Output: Urine 25 20 10 Stool 700 900 Hemodialysis 2807 Hemodialysis Net Amount 2307 Other: Voiding Method Indwelling Catheter Indwelling Catheter Indwelling Catheter ABP, PAP, CO, CI - Last Documented Arterial Blood Pressure - Exam GENERAL DESCRIPTION: Middle-age male intubated on the vent RESPIRATORY SYSTEM: Unlabored breathing , decreased breath sounds at bases HEART: S1 S2 regular rate and rhythm , ABDOMEN: Soft , no tenderness EXTREMITIES: Swelling to the leg - Labs CBC & Chem 7: 10/06/24 06:50 10/06/24 04:57 Labs: Abnormal Lab Results - Last 24 Hours (Table) 10/05/24 10/05/24 10/06/24 Range/Units 17:56 22:38 03:53 RBC (4.40-5.60) 10*6/uL Hgb (13.0-17.0) g/dL Hct (39.6-50.0) % MCHC (32.0-37.0) g/dL ABG pCO2 48 H (35-45) mmHg ABG pO2 81 L (83-108) mmHg ABG HCO3 27 H (21-25) mmol/L ABG Total CO2 28 H (19-24) mmol/L ABG O2 Saturation 97.1 H (94-97) % Hemoglobin 8.1 L (13.0-17.5) gm/dL Sodium (137-145) mmol/L Chloride (98-107) mmol/L BUN (9-20) mg/dL Creatinine (0.66-1.25) mg/dL Glucose (74-99) mg/dL POC Glucose (mg/dL) 231 H 241 H (70-110) mg/dL 10/06/24 10/06/24 10/06/24 Range/Units 04:57 05:25 06:50 RBC 2.81 L (4.40-5.60) 10*6/uL Hgb 7.6 L (13.0-17.0) g/dL Hct 25.6 L (39.6-50.0) % MCHC 29.7 L (32.0-37.0) g/dL ABG pCO2 (35-45) mmHg ABG pO2 (83-108) mmHg ABG HCO3 (21-25) mmol/L ABG Total CO2 (19-24) mmol/L ABG O2 Saturation (94-97) % Hemoglobin (13.0-17.5) gm/dL Sodium 131 L (137-145) mmol/L Chloride 95 L (98-107) mmol/L BUN 47 H (9-20) mg/dL Creatinine 1.62 H (0.66-1.25) mg/dL Glucose 291 H (74-99) mg/dL POC Glucose (mg/dL) 313 H (70-110) mg/dL 10/06/24 Range/Units 11:53 RBC (4.40-5.60) 10*6/uL Hgb (13.0-17.0) g/dL Hct (39.6-50.0) % MCHC (32.0-37.0) g/dL ABG pCO2 (35-45) mmHg ABG pO2 (83-108) mmHg ABG HCO3 (21-25) mmol/L ABG Total CO2 (19-24) mmol/L ABG O2 Saturation (94-97) % Hemoglobin (13.0-17.5) gm/dL Sodium (137-145) mmol/L Chloride (98-107) mmol/L BUN (9-20) mg/dL Creatinine (0.66-1.25) mg/dL Glucose (74-99) mg/dL POC Glucose (mg/dL) 331 H (70-110) mg/dL Assessment and Plan (1) Pneumonia Current Visit: Yes Status: Acute Code(s): J18.9 - PNEUMONIA, UNSPECIFIED ORGANISM SNOMED Code(s): 010258906 (2) Sepsis Current Visit: Yes Status: Acute Code(s): A41.9 - SEPSIS, UNSPECIFIED ORGANISM SNOMED Code(s): 50811200 (3) Candidemia Current Visit: Yes Status: Acute Code(s): B37.7 - CANDIDAL SEPSIS SNOMED Code(s): 559298474 Plan: [facility] patient who did have fever tachycardia elevated lactic acid upon meeting criteria for SIRS/sepsis source likely pneumonia,patient is status post bronchoscopy lavage results currently growing Pseudomonas that is resistant to Avycaz and corynebacterium, which was vancomycin and Zyvox sensitive, patient completed antibiotic therapy for his pneumonia 2patient did have candidemia source is likely left chest wall PICC line which has been discontinued has been sent for the culture central line placed by outside upholsterer, blood culture repeat on 09/18/2024 positive blood culture repeat 09/22/2024 so far negative. Subsequently patient did continue PICC line and the chest wall catheter was discontinued as repeat blood culture from 09/22/2024 remained to be negative 3patient has received a 2-day course of Eraxis from his negative blood culture on 09/22/2024 and Eraxis will be discontinued and the patient monitor closely off antifungal/antibiotic therapy Mother at the bedside question answered Dictation was produced using [employer] dictation software. please excuse any grammatical, word or spelling errors. Time with Patient: Less than 30
[2024-10-06 16:48] LABS: Glucose,Whole Blood 484 mg/dL (70-110)
[2024-10-06] MEDS: INSULIN LISPRO (HumaLOG) 100 UNIT/ML 10 mL VL SQ ONE ×2 (17:11→23:27)
[2024-10-06 23:12] LABS: Glucose,Whole Blood 582 mg/dL (70-110)
[2024-10-06] MEDS: INSULIN GLARGINE (LANTUS) 100 UNIT/ML SYR SQ SCH (23:27)
[2024-10-07 04:08] LABS: HCT 22.8 % (39.6-50.0); MCH 27.6 pg (27.0-32.0); MCHC 30.3 g/dL (32.0-37.0); MCV 91.2 fL (80.0-97.0); Platelet Count 167 10*3/uL (140-440); RBC 2.50 10*6/uL (4.40-5.60); RDW 19.9 % (11.5-14.5); WBC 5.29 10*3/uL (4.50-10.00)
[2024-10-07 04:14] LABS: HGB 6.9 g/dL (13.0-17.0)
[2024-10-07 04:25] LABS: African American GFR (CKD) 39 (>60 ml/min/1.73 sqM); Anion Gap 12 mmol/L; Blood Urea Nitrogen 72 mg/dL (9-20); Calcium 8.9 mg/dL (8.4-10.2); Carbon Dioxide 22 mmol/L (22-30); Chloride 95 mmol/L (98-107); Magnesium 2.2 mg/dL (1.6-2.3); Non-African American GFR(CKD) 34 (>60 ml/min/1.73 sqM); Potassium 5.9 mmol/L (3.5-5.1); Sodium 129 mmol/L (137-145)
[2024-10-07 04:43] LABS: Glucose 632 mg/dL (74-99)
[2024-10-07] MEDS ORDERED: DEXTROSE 50% SYRINGE 50 ML IVP PRN ×2 (04:49)
[2024-10-07 04:51] LABS: ABG HCO3 24 mmol/L (21-25); ABG PCO2 45 mmHg (35-45); ABG PH 7.33 (7.35-7.45); ABG PO2 93 mmHg (83-108); ABG TCO2 25 mmol/L (19-24)
--- NOTE | 2024-10-07 04:51 | P.PN ---
Subjective Progress Note Date: 10/06/24 Chief Complaint: Short of breath 49-year-old patient, follows with Dr. Murcia History of paraplegia, home vent at night, tracheostomy multiple admissions to the ICU for recurrent pneumonia. Patient's previous bronchial cultures been positive for Pseudomonas. He was discharged recently on IV cefepime. Also has a history of Crohn's disease with previous colectomy diverting ileostomy. History of DVT for which patient is on subcu Lovenox. Also had drug-resistant MRSA Pseudomonas. Patient currently does not have areas significant trach secretions. He has continues TPN. Has a right BKA. He does have slight movement in the right hand. Able to follow commands by nodding his head. Answering questions. He is scared by his elder son open. I was also the DPOA. August 30: Overnight patient started having more secretions through the tracheostomy. Vancomycin was added. Also blood pressure running low patient was put on Levophed drip. Otherwise sinus rhythm. Patient remains on the ventilator. Will also send off stool for C. difficile. Also patient IV cefepime. Getting TPN. August 31: ICU. Patient had positive fluid balance. Was given IV Lasix earlier. Remains on Levophed. Spiking fevers. Getting TPN. Stool negative for C. difficile. Patient is growing MDRO Pseudomonas aeruginosa. ID is ordered IV Zerbaxa. Which is currently not available. Patient's friend is visiting him in the ICU. Light trach secretion September 01: ICU. On the ventilator. FiO2 45%. PEEP of 5. Continues to have light trach secretions. Sputum cultures again growing Pseudomonas. Zerbaxa was obtained and resumed. Blood pressure running low. On Levophed. Patient's younger son at the bedside. Colostomy working fine. Has been spiking fevers. Cooling blanket. Ice packs. September 02: ICU. Ventilator FiO2 45%. PEEP of 5. Continues to have some trach secretions. IV Zerbaxa IV tobramycin. TPN lipids to continue. Also Levophed. Patient started cooling blankets since yesterday for temperatures. Along with the nurse speech therapy records were reviewed from last few admissions. Patient with multiple MBS and bedside swallow eval. No trouble with swallowing. Patient put on a chopped diet. Thin liquids. Patient did spike a fever of 101.7 earlier today. Low ionized calcium. IV gluconate given. September 03: ICU. On ventilator FiO2 45%. PEEP of 5. Mild trach secretions. Getting IV TPN lipids. IV tobramycin. Zerbaxa was substituted to Avycaz. By ID. No fever per se since yesterday. For blood pressure patient is also on Levophed and vasopressin. September 04: ICU. On ventilator FiO2 45%. PEEP of 5. Clear trach secretions. Getting IV TPN lipids. IV tobramycin. And IV Avycaz. Remains afebrile.. On Levophed and vasopressin. Awake. 09/06/2024 Patient is seen and evaluated in ICU; remains on mechanical ventilator, actually his home ventilator, with settings of volume assist-control, rate 20, tidal volume 450, FiO2 45%, PEEP of 5. - patient has been refusing blood; no ABGs to. He is getting lactated Ringer's at 50 cc an hour, TPN at 65 cc an hour. - patient remains on the same antibiotics. - Labs reviewed which reveal white count 5.21, hemoglobin 7.9, hematocrit 27.5, and platelet count 64,000. Sodium 141, potassium 3.5, chlorides 102, CO2 32, BUN 25, and creatinine 0.35. Glucose is 152. Calcium is 8. Albumin is 2.1. -Chest x-ray is largely unchanged. Critical care managing mechanical ventilation; recommending to add scopolamine patch for increased secretion -Patient remains on Avycaz and tobramycin - Continue with current TPN 09/07 Patient remains in the ICU lethargic. He is s/p tracheostomy Overnight he was more hypoxic they have to increase PEEP to 8. Also has a lot of secretions when needed for secretions suctioning to try to become apneic per Staff. Patient currently receiving Avycaz and tobramycin. on TPN also 09/08 Patient remains in the ICU awake and alert status post tracheostomy. He has contractures of both upper and lower extremities He is complaining from pain in his lungs. He is status post flexible bronchoscopy and bronchoalveolar lavage yesterday. He has previous sputum culture positive for Pseudomonas currently covered with ceftazidime and tobramycin. He is also on Lovenox 90 mg 09/09 Patient still in the ICU on mechanical ventilation via tracheostomy. PEEP is 8.0 as is yesterday Also he spiked little fever to 100.7. IV vancomycin is added to tobramycin and ceftazidime He is getting also bronchoscopy follow-up culture results 09/10 Patient feels clinically the same, he still getting breathing via mechanical ventilation through his tracheostomy with PEEP of 8. Patient feels he is required suctioning through his tracheostomy tube. He denies chest pain or pain anywhere else he can communicate by head signs and gestures. Hemodynamically stable and afebrile hemoglobin 7.4 platelet count 73 Glucose is controlled potassium 3.3 He remains on broad-spectrum antibiotic Rocephin at this time tobramycin and IV vancomycin added yesterday because he had low-grade fever. He is getting TPN. IV fluid Ringer lactate was stopped and patient was started on IV Lasix 20 mg 3 times a day continue with therapeutic dose of Lovenox as well 09/11 Patient remains in the ICU Remains on mechanical ventilation via tracheostomy He status post bronchoalveolar lavage 2 days ago, culture is growing Pseudomonas aeruginosa and corynebacterium Patient remains on broad-spectrum antibiotics with IV vancomycin, tobramycin, ceftazidime On IV Lasix also is on therapeutic dose of Lovenox 90 mg twice daily No IV fluids 09/12 Patient remains in the ICU Clinically close to what he was over the last 2 days still getting oxygen via his tracheostomy He remains on broad-spectrum antibiotic with Ceftin this time and IV vancomycin. Also he is on IV Lasix 20 mg and therapeutic dose of Lovenox. 09/13 Patient remains in the ICU on mechanical ventilation via tracheostomy Patient looks better today, he breathing better Less secretion Fentanyl patch increased 09/14. Patient seen and examined. Patient continues to be on mechanical ventilation via trach mask. Currently on TPN. Currently on IV Zerbaxa and vancomycin 09/15. Patient seen and examined.Vital signs done showed the patient overnight, heart rate 106, blood pressure 107/40, currently on ventilation. Labs reviewed showed WBC 7.27, hemoglobin 7.5, sodium 148 on potassium 4.3, BUN 23, creatinine 0.47 09/16. Patient seen and examined labs reviewed showing WBC 5.45, hemoglobin 9.6, platelet count 131, sodium 146, potassium 4.1, BUN 20, creatinine 0.47. Continue small amount of Levophed. Currently on Zerbaxa and vancomycin. Currently on TPN September 17: ICU. Patient has taken a turn for the worse today. Significant thick white secretions from the trach. Sinus rhythm. Receiving TPN. Patient is on Levophed and vasopressor. Rather high dose. FiO2 [address] of 10. [address] Ho earlier spoke to the patient/family. Remains full code September 18: ICU. Intubated FiO2 70 PEEP of 12. Sinus rhythm. Drips include IV propofol at 50 and Levophed at 0.13. Patient is off vasopressin. Patient secretions. Family at the bedside. September 19: ICU. Intubated. FiO2 50 and a PEEP of 12. Drips include IV Levophed and propofol. Also started on Lasix drip 10 mg an hour yesterday. Secretions present. September 20: ICU. Intubated. FiO2 50 and a PEEP of 12. Hemoglobin 6.3. Secondary to blood being given. Patient been on and off Levophed. On propofol. Lipids have been held. Continues with TPN. Lasix drip was discontinued. Lovenox has been held because of low hemoglobin. Unable anemia is felt to be combination of regular blood draws and possible element element of hemolysis from all the infection. No dark stool. Family at the bedside September 21: ICU. Intubated. Received 2 units of blood yesterday. Hemoglobin 7.6 today. Per nephrology renal replacement therapy. Dialysis access placed by Dr. Cadena. Patient earlier today on Levophed. Propofol. Getting TPN. Sinus rhythm. Urine output decreased September 22: ICU. Intubated. FiO2 15 of PEEP of 12. Seen earlier today. Dialysis being started. Been on IV Levophed propofol. Sinus rhythm. TPN. Sinus rhythm. September 23: ICU. Intubated. Due for another dialysis today. Saw the patient earlier today. Remains on IV Levophed propofol. Sinus rhythm. TPN. On fentanyl patch. September 24: ICU. Intubated. FiO2 40 and PEEP of 12. Remains on IV Levophed and propofol. IV TPN. Decrease trach secretions. IV antibiotics. Was due for dialysis earlier today. September 25: ICU. Intubated. FiO2 30%. Patient getting IV Levophed and propofol. IV TPN. Dialysis today. Receiving IV antibiotics. Does opens eyes occasionally. Some commands per nursing. September 26: ICU. Intubated. FiO2 30 and a PEEP of 8. Had 2 L hemodialysis removed yesterday. Getting hemodialysis today. Aiming for 2 to 3 L. Patient is on propofol. Currently Levophed on hold. Getting TPN. Patient is actually awake and following commands. Sinus rhythm. September 27: ICU. Intubated. FiO2 39 PEEP of 8. No dialysis today. Remains on IV Levophed propofol. TPN. There is a bedside. Patient asked me how is he doing. Had a lengthy information in terms of his guarded prognosis. Did tell him it is his choice about how he wishes to proceed. He needs to decide between treatment benefits versus in the suffering because of that entails from treatment and his recurrent infections etc. Especially in the context of decreased activity. Kidney failure, respiratory failure etc. September 28: ICU. Intubated. FiO2 30 and a PEEP of 8. For dialysis today. Off Levophed this morning. IV propofol. TPN. Some clear light to trach secret ions. Colostomy working. Poor urine output. September 29: ICU. Intubated. IV propofol Levophed. TPN. Awake. Discussed with Dr. Holt. Prognosis very poor. Probably treatment is the point of getting futile. Patient needs about 34 more days to go to long-term ventilator setting. September 30: ICU. Intubated. IV propofol. Currently off Levophed. TPN. Getting dialysis today. Awake. IV antifungal. Given a unit of blood for hemoglobin of 6.9 October 01: ICU. Intubated. IV propofol. Remains on Levophed. TPN dose adjusted. Dialysis. IV aniedulefungin. Eyes open. Vent. FiO2 30%. PEEP 5 September 18: ICU. Intubated. IV propofol. Off Levophed. TPN. Dialysis today. IV aniedulefungin last day on October 06. Per ID. Some trach secretions clear October 03: ICU. Intubated. IV propofol. TPN. Dialysis schedule will now be Saturday. Next dialysis will be on coming Saturday. IV aniedulefungin last day-I October 06. Minimal urine output-5 to 10 cc an hour. Awake. October 04: ICU. Intubated. IV propofol. TPN. Next dialysis on Saturday. IV elevated Lida function. Urine output remains to be minimal. Awake. Mother at the bedside. Does not have any questions. Sinus rhythm. 10/05/2024 Patient seen in follow-up today remains in the ICU on mechanical ventilation FiO2 is 30%. Patient is requiring some small dose Levophed as blood pressures were low maintained on hemodialysis. Multiple consultations following including infectious disease the patient is maintained on Eraxis which will be completed after October 06, 2024. Patient is continued on TPN and will continue. Prognosis remains poor and guarded at this time. 10/06/2024 Patient seen and evaluated in follow-up today with no significant changes other than blood sugars are becoming more elevated likely secondary to Cortef be resumed. Will add long-acting insulin and continue with sliding scale. Would recommend ACHS as well as at 2 AM as needed. Patient is afebrile continued on mechanical ventilation and will be completing Eraxis today. Social history: Patient started smoking at the age of [age] 1 pack a day stopped in 2016. Nonambulatory. Is cared by his son becky. Who is also the OA Physical examination: GENERAL:, 49-year-old male who was asleep continued on mechanical ventilation via tracheostomy EYES: Pupils equal. Conjunctiva loan l. HEENT: External appearance of nose and ears normal, oral cavity dry NECK: JVD unable to assess; masses not palpable. Tracheostomy HEART: First and second heart sounds are normal; no edema. LUNGS: decreased breath sounds bilaterally, some crackles ABDOMEN: Soft, nontender, liver spleen not palpable, no masses palpable. Double barrel ostomy. PSYCH: Following simple commands MUSCULOSKELETAL: Right BKA. Left foot drop. Left hand contracture. Right hand also with contracture but able to have some movements NEUROLOGICAL: Cranial nerves grossly intact; no facial asymmetry, slight movement in the right arm. INVESTIGATIONS, reviewed in the clinical context: October 04: White count 5.9 hemoglobin 7.9 potassium 4.5 BUN 59 creatinine 1.9 phosphorus 1.5 September 17: White count 20 hemoglobin 8.5 platelets 199 potassium 4.2 BUN 25 creatinine 0.4. ABG: pH 7.17 pCO2 79 PO277. September 02: White count 3.6 hemoglobin 9.7 platelets 130 potassium 3.9 BUN 23 creatinine 0.36 ionized calcium 4.3 TSH 2.7 Sputum culture: Pseudomonas aeruginosa: Sensitive to Zosyn, tobramycin, ceftazidime Sputum culture: Pseudomonas aeruginosa August 30: White count 3.5 hemoglobin 10.0 platelets 133 potassium 3.5 creatinine 0.36 August 29, 2024: White count 6.2 hemoglobin 12.3 platelets 216 sodium 128 potassium 3.1 BUN 50 creatinine 0.46 lactic acid 2.1 calcium 10.8 phosphorus 3.0 troponin I 0.016 UA: Negative for nitrite Influenza type A, type B, RSV, SARS-CoV-2: Not detected Previous labs: Sputum culture September 19, 2024: Pseudomonas aeruginosa Assessment plan: - Basilar pneumonia. Previous admission sputum was positive for Pseudomonas aeruginosa - Candidemia likely source left chest wall PICC line that has been discontinued. And repeat blood cultures on September 22 negative. Line changes are being followed by ID IV Eraxis-last days October 06 per ID - Fluid overload Had received Lasix drip - Acute kidney injury from ATN from septic shock. And possibly vancomycin toxicity. Oliguric. Volume overload. First dialysis was on September 22.-Has been getting dialysis nearly daily. From now on dialysis schedule be Saturday - Metabolic alkalosis - Septic shock: Levophed has been on and off, blood pressures softer today requiring low-dose Levophed - Acute on chronic hypoxic and hypercapnic respiratory failure, vent dependent at night at home: On ventilator support. Propofol - Tracheostomy with trach collar -Acute normocytic anemia of chronic disease and hospital-acquired anemia from blood draws and possible hemolysis from infection Has received 6 units of blood - Thrombocytopenia likely from sepsis: Corrected - Right below-knee amputation history - Chronic quadriparesis. Including left foot drop. Left arm contracture. Some right hand contracture. Some movement in the right arm - Crohn's disease with double barrel ostomy bag in place since 09/2021 - TPN and lipids Lipids have been held during propofol - Full code - DPOA, son BECKY Plan: Patient remains in the ICU on mechanical ventilation with an FiO2 of 30% via tracheostomy Continued per propofol along with Dilaudid Patient is receiving Eraxis to be completed today 10/06/2024 per ID recommendations Continue current supportive care Blood sugars are more elevated and uncontrolled likely secondary to Solu-Cortef being resumed, will add long-acting and continue with sliding scale recommend ACHS as well as 2 AM. Adjust accordingly Recommend follow-up labs in the a.m. including CBC and CMP. Replace electrolytes per protocol. Transfuse if 7 or less on hemoglobin. No active bleeding noted Case management/social work following and awaiting new insurance to become effective regarding discharge planning which will require LTAC Overall prognosis is extremely poor and per family and patient, CODE STATUS remains full code The impression and plan of care has been dictated by Alyssa Hernandez, Nurse Practitioner as directed. Dr. Vicente MD I have performed a history and examination and MDM of this patient, discussed the same with the dictator, and agree with the dictator's assessment and plan as written ,documented as a scribe. Based on total visit time, I have performed more than 50% of the visit. Objective - Vital Signs Vital signs: Vital Signs Temp 98.4 F 10/06/24 20:00 Pulse 100 10/06/24 22:00 Resp 25 H 10/06/24 21:00 BP 119/52 10/06/24 22:00 Pulse Ox 96 10/06/24 22:00 FiO2 30 10/06/24 20:00 Intake & Output 10/06/24 10/06/24 10/07/24 06:59 18:59 06:59 Intake Total 3530.558 9227.324 1402.902 Output Total 920 15 615 Balance 813.763 6546.324 787.902 Weight 89.7 kg 89.7 kg Intake: IV 153 156 52 0.9 KVO 120 120 40 Pressure Bag 33 36 12 Intake, IV Titration 213.985 222.282 5962.902 Amount Norepinephrine 8 mg In 149.413 136.737 13.569 Sodium Chloride 0.9% 250 ml @ 0.03 MCG/KG/MIN 6. 513 mls/hr IV .Q24H ANNIE Rx#:[id number] Sodium Acetate 40 meq 7.083 997.333 Sodium Chloride 4Meq/ml Vial 90 meq Calcium Gluconate 0.5 gm Potassium Chloride 30 meq Magnesium Sulfate gm 0.5 gm Sodium Phosphate 15 mmol In Amino Acids 5 %/ Dextrose 20 % 1,000 ml @ 85 mls/hr IV .BY DURATION ANNIE Rx#:[id number] propofoL 1,000 mg In 64.572 88.504 Empty Bag 1 bag @ 50 MCG/ KG/MIN 32.34 mls/hr IV . Q3H6M ANNIE Rx#:[id number] TPN/PPN 1020 900 340 TPN 1020 900 340 Output: Urine 20 15 15 Stool 900 600 Other: Voiding Method Indwelling Catheter Indwelling Catheter Indwelling Catheter ABP, PAP, CO, CI - Last Documented Arterial Blood Pressure - Labs CBC & Chem 7: 10/07/24 03:52 10/07/24 03:52 Labs: Abnormal Lab Results - Last 24 Hours (Table) 10/06/24 10/06/24 10/06/24 Range/Units 03:53 04:57 05:25 RBC (4.40-5.60) 10*6/uL Hgb (13.0-17.0) g/dL Hct (39.6-50.0) % MCHC (32.0-37.0) g/dL ABG pCO2 48 H (35-45) mmHg ABG pO2 81 L (83-108) mmHg ABG HCO3 27 H (21-25) mmol/L ABG Total CO2 28 H (19-24) mmol/L ABG O2 Saturation 97.1 H (94-97) % Hemoglobin 8.1 L (13.0-17.5) gm/dL Sodium 131 L (137-145) mmol/L Chloride 95 L (98-107) mmol/L BUN 47 H (9-20) mg/dL Creatinine 1.62 H (0.66-1.25) mg/dL Glucose 291 H (74-99) mg/dL POC Glucose (mg/dL) 313 H (70-110) mg/dL 10/06/24 10/06/24 10/06/24 Range/Units 06:50 11:53 16:45 RBC 2.81 L (4.40-5.60) 10*6/uL Hgb 7.6 L (13.0-17.0) g/dL Hct 25.6 L (39.6-50.0) % MCHC 29.7 L (32.0-37.0) g/dL ABG pCO2 (35-45) mmHg ABG pO2 (83-108) mmHg ABG HCO3 (21-25) mmol/L ABG Total CO2 (19-24) mmol/L ABG O2 Saturation (94-97) % Hemoglobin (13.0-17.5) gm/dL Sodium (137-145) mmol/L Chloride (98-107) mmol/L BUN (9-20) mg/dL Creatinine (0.66-1.25) mg/dL Glucose (74-99) mg/dL POC Glucose (mg/dL) 331 H 484 H (70-110) mg/dL Microbiology - Last 24 Hours (Table) 10/05/24 10:29 Blood Culture - Preliminary Blood
[2024-10-07 04:52] LABS: Glucose,Whole Blood >600 mg/dL (70-110)
[2024-10-07 04:53] LABS: Allen Test Performed? no
[2024-10-07] MEDS: INSULIN REGULAR 100 UNIT in SODIUM CHLORIDE 0.9% 100 ML IV SCH (05:11)
[2024-10-07 05:49] LABS: Glucose,Whole Blood >600 mg/dL (70-110)
[2024-10-07 06:54] LABS: Glucose,Whole Blood >600 mg/dL (70-110)
--- NOTE | 2024-10-07 08:00 | XR ---
EXAMINATION TYPE: XR chest 1V portable DATE OF EXAM: 10/07/2024 5:36 AM COMPARISON: 10/06/2024 CLINICAL INDICATION: Male, 49 years old with history of Mechanical ventilation, difficulty breathing TECHNIQUE: XR chest 1V portable view(s) obtained. Left costophrenic angle excluded from [id number] FINDINGS: The heart size is normal. The pulmonary vasculature is normal. The lungs are clear. Right basilar infiltrate is improved Tracheostomy tube is in midline. Double-lumen catheter on left with tips in the right atrium IMPRESSION: 1. Improving right lung base infiltrate. 2. Lines and catheters discussed above [facility], Workstation: [facility], 10/07/2024 7:58 AM
[2024-10-07 08:04] LABS: Glucose,Whole Blood 539 mg/dL (70-110)
[2024-10-07 09:06] LABS: Glucose,Whole Blood 501 mg/dL (70-110)
[2024-10-07 10:02] LABS: Glucose,Whole Blood 389 mg/dL (70-110)
[2024-10-07] MEDS: HYDROCORTISONE SUCCINATE 100 MG/2 ML VIAL IV SCH (10:17)
[2024-10-07 11:07] LABS: Glucose,Whole Blood 294 mg/dL (70-110)
--- NOTE | 2024-10-07 11:31 | P.PN ---
Subjective Progress Note Date: 10/07/24 Principal diagnosis: Acute on chronic hypoxic respiratory failure secondary to bilateral pneumonia secondary to multidrug resistant Pseudomonas aeruginosa., Candidemia/fungemia This is a 49-year-old white male familiar to my service, history of paraplegia, home vent dependent, history of tracheostomy, patient had multiple admissions to the ICU for recurrent episodes of pneumonia and respiratory failure requiring ventilatory support. On his last admission patient was eventually discharged home on a home ventilator, and this was back on 08/04/2024. Patient was discharged home with a PICC line, patient was in the ER yesterday on 08/28 for abnormal labs mostly low potassium and low sodium discharged home however he came back today complaining of shortness of breath, has been ventilator dependent all along. Chest x-ray showed basically bibasilar opacities/atelectasis, doubt pneumonia, the findings in the left lower lobe are chronic. Patient did have previous history of pneumonia involving the left lower lobe and he had multiple bronchoscopies in the past. Bronchial cultures and sputum cultures have been positive in the past for mostly Pseudomonas aeruginosa. Patient was seen in the ER today, and he is already on cefepime for empiric coverage for potential left lower lobe pneumonia, patient had abnormal electrolytes with relatively low sodium low potassium, no leukocytosis, normal renal profile, blood pressure was soft, and he was given fluid boluses. Lactic acid was 2.1, D-dimer is normal, patient was admitted, and this consult was initiated. 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 On 10/03/2024, the patient is clinically unchanged. Remains on propofol at 10 mcg/kg/min. Calm and comfortable. Responsive and awake. Evening was uneventful. Remains on a mechanical ventilator. Assist-control of 24, tidal volume of 400, FiO2 30% with a PEEP of 5. No blood gases from today. Follow-up chest x-ray from today is showing stable findings without any acute interval ch kelvin and the patient continues to have persistent interstitial opacities bilaterally. The patient remains on TPN at rate of 85 cc an hour. Off pressors. White cell count is 6 with hemoglobin 7.1 and a platelet count of 206. BUN 34 with a creatinine of 1.3. Sodium is at 133. On 10/04/2024, there is absolutely no change in the patient's condition. The patient is resting comfortably on propofol low-dose at 10 mcg. He remains on mechanical ventilator, unable to wean him off the mechanical ventilator and is vent dependent with an assist-control mode at rate of 24, tidal volume of 400, FiO2 of 30% and the PEEP of 5. Chest x-ray remains unchanged. The patient is afebrile and hemodynamically stable, completing the course of Eraxis. Remains on TPN for nutritional support rate of 55 cc an hour. Urine output is minimal and undergoing periodic hemodialysis. The white cell count is 5.9, hemoglobin 7.9, BUN is 59 with a creatinine of 1.9. Potassium levels of 4.5. Next hemodialysis session is on 10/05/2024. Patient was seen today on 10/05/2024, remains in the ICU, intubated mechanically ventilated, on assist-control rate of 24 tidal volume 400 FiO2 30% and PEEP of 5. Remains on propofol 10 mcg/kg/min remains on TPN at 85 cc/h remains on Eraxis patient is sedated but he is arousable and he follows simple instructions. However he is profoundly weak not to mention the patient is p araplegic. Labs today show WBC count of 5.9 hemoglobin is 7 electrolytes are relatively normal bicarb is 21 BUN is 79 creatinine 2.61 patient is receiving hemodialysis this morning. Liver enzymes are a bit elevated with bilirubin of 2.7 AST 39 ALT 59 and alkaline phosphatase of 165. Albumin is 2.5. Chest x-ray continues to show left-sided double-lumen dialysis catheter there is also ongoing pulmonary vascular congestion, possible minimal infiltrates. Medications were reviewed patient remains on Eraxis, Peridex, Aranesp, fentanyl patches, heparin subcu every 8 hours, Dilaudid as needed, insulin as per protocol, DuoNeb updraft 4 times daily and as needed, Ativan as needed, presently off norepinephrine, continues to be on Zofran as needed and Protonix, propofol, and he is off antibiotics except for his Eraxis. Seen today on 10/06/2024, remains in the ICU, intubated and mechanically marge tilated, he is on assist-control rate of 24 tidal volume 400 FiO2 30% and PEEP of 5. ABG showed a PO2 of 81 pCO2 48 pH of 7.35. Patient is on norepinephrine at 0.05 mcg/kg/min he has borderline blood pressure requiring norepinephrine this morning, hence I went back and placed the patient on Solu-Cortef which was discontinued few days ago. Remains on Eraxis stopped date will be today. Patient is on TPN at 85 mL/h. He is still intermittently getting hemodialysis. Patient is arousable in spite of being on propofol, follows instructions but he looks chronically ill, frail, and debilitated. WBC count today is 8.0 hemoglobin 7.6 hematocrit 25.6 blood sugar is 331. Renal profile showed BUN of 47 creatinine 1.62 otherwise the rest of the labs were unremarkable. Chest x- ray continues to show small minimal pleural effusion and improved aeration compared to prior studies. Medications will all reviewed on Eraxis, Peridex, Aranesp, fentanyl patches, heparin subcu every 8 hours, Dilaudid as needed, insulin as per protocol, DuoNeb updraft 4 times daily and as needed, Ativan as needed, presently off norepinephrine, continues to be on Zofran as needed and Protonix, propofol, and he is off antibiotics except for his Eraxis. Patient was seen today on 10/07/2024, remains in the ICU, intubated and mechanically ventilated, patient is on assist-control rate of 24 tidal volume 400 FiO2 30% PEEP of 5 ABG showed a pO2 of 93 pCO2 45 pH of 7.33 hence no changes were made with his vent settings. Remains on low-dose propofol at 10 mg/kg/min he is on TPN at 85 cc/h sugars are running high requiring insulin drip he is on 18.32 units/h hence I cut down on his Solu-Cortef to 50 mg IV push every 12 hours. Today he is off norepinephrine was put on hold at 9 PM last night. Patient is off Eraxis off antibiotics, considering the patient is chronically debilitated and chronically ill, patient is ventilator dependent, we are experiencing significant difficulty in placement of this patient. Today he will receive a unit of packed RBCs for hemoglobin of 6.9. WBC count today is 5.2 hemoglobin 6.9 platelets are 167 sodium is low 129 potassium 5.9 BUN 72 creatinine 2.2 patient will be receiving another hemodialysis today. Blood sugar is as high as 632 hence the low sodium is really more of the pseudohyponatremia. Objective - Vital Signs Vital signs: Vital Signs Temp 97.8 F 10/07/24 08:19 Pulse 82 10/07/24 10:00 Resp 21 10/07/24 10:00 BP 123/76 10/07/24 10:00 Pulse Ox 95 10/07/24 10:00 FiO2 30 10/07/24 10:00 Intake & Output 10/06/24 10/07/24 10/07/24 18:59 06:59 18:59 Intake Total 1725.333 0570.971 1741.423 Output Total 15 630 1115 Balance 0219.605 1132.971 626.423 Weight 89.7 kg 91 kg Intake: IV 156 156 267 0.9 KVO 120 120 0 Pressure Bag 36 36 12 TPN 255 Intake, IV Titration 768.641 3589.971 1164.423 Amount Insulin Regular 100 unit 15.077 84.923 In Sodium Chloride 0.9% 100 ml @ Titrate IV .Q0M [facility] Rx#:[id number] Mvi, Adult No.4 with Vit 1079.5 K 10 ml Trace (Conc-1Ml/ Dose) 1 ml Sodium Acetate 40 meq Sodium Chloride 4Meq/ml Vial 90 meq Calcium Gluconate 0.5 gm Potassium Chloride 30 meq Magnesium Sulfate gm 0.5 gm Sodium Phosphate 15 mmol In Amino Acids 5 %/ Dextrose 20 % 1,000 ml @ 85 mls/hr IV .BY DURATION [facility] Rx#:[id number] Norepinephrine 8 mg In 136.737 13.569 Sodium Chloride 0.9% 250 ml @ 0.03 MCG/KG/MIN 6. 513 mls/hr IV .Q24H [facility] Rx#:[id number] Sodium Acetate 40 meq 7.083 997.333 Sodium Chloride 4Meq/ml Vial 90 meq Calcium Gluconate 0.5 gm Potassium Chloride 30 meq Magnesium Sulfate gm 0.5 gm Sodium Phosphate 15 mmol In Amino Acids 5 %/ Dextrose 20 % 1,000 ml @ 85 mls/hr IV .BY DURATION [facility] Rx#:[id number] propofoL 1,000 mg In 88.504 68.992 Empty Bag 1 bag @ 50 MCG/ KG/MIN 32.34 mls/hr IV . Q3H6M [facility] Rx#:[id number] TPN/PPN 900 1020 TPN 900 1020 Blood Product 0 310 Rc As-1 Unit 0 310 [id number] Output: Urine 15 30 15 Stool 600 1100 Other: Voiding Method Indwelling Catheter Indwelling Catheter Indwelling Catheter ABP, PAP, CO, CI - Last Documented Arterial Blood Pressure 49/44 - Exam GENERAL EXAM: 49-year-old white male intubated mechanically ventilated, tracheostomy in place HEAD: Normocephalic. Tracheostomy is intact. Left IJ hemodialysis catheter is noted. EYES: Normal reaction of pupils, equal size. NOSE: Clear with pink turbinates. THROAT: Tracheostomy tube secured in place. NECK: No masses, no JVD. CHEST: No chest wall deformity. LUNGS: Diminished breath sound bilaterally no crackles rhonchi or wheezes CVS: S1 and S2 normal with no audible murmur, regular rhythm. ABDOMEN: Enterocutaneous fistula over the abdominal wall. No hepatosplenomegaly, normal bowel sounds. SKIN: No rashes, patient is quite edematous CENTRAL NERVOUS SYSTEM: Awake, follows simple instructions but profoundly weak. EXTREMITIES: Bilateral edema, extensive muscle atrophy. Contractures. There is no peripheral edema. No clubbing, no cyanosis. Peripheral pulses are intact. Right below-knee amputation is noted. - Labs CBC & Chem 7: 10/07/24 03:52 10/07/24 03:52 Labs: Abnormal Lab Results - Last 24 Hours (Table) 10/06/24 10/06/24 10/06/24 Range/Units 11:53 16:45 23:10 RBC (4.40-5.60) 10*6/uL Hgb (13.0-17.0) g/dL Hct (39.6-50.0) % MCHC (32.0-37.0) g/dL ABG pH (7.35-7.45) ABG Total CO2 (19-24) mmol/L ABG O2 Saturation (94-97) % Hemoglobin (13.0-17.5) gm/dL Sodium (137-145) mmol/L Potassium (3.5-5.1) mmol/L Chloride (98-107) mmol/L BUN (9-20) mg/dL Creatinine (0.66-1.25) mg/dL Glucose (74-99) mg/dL POC Glucose (mg/dL) 331 H 484 H 582 H* (70-110) mg/dL Phosphorus (2.5-4.5) mg/dL Crossmatch 10/07/24 10/07/24 10/07/24 Range/Units 03:52 03:52 04:22 RBC 2.50 L (4.40-5.60) 10*6/uL Hgb 6.9 L* (13.0-17.0) g/dL Hct 22.8 L (39.6-50.0) % MCHC 30.3 L (32.0-37.0) g/dL ABG pH (7.35-7.45) ABG Total CO2 (19-24) mmol/L ABG O2 Saturation (94-97) % Hemoglobin (13.0-17.5) gm/dL Sodium 129 L (137-145) mmol/L Potassium 5.9 H (3.5-5.1) mmol/L Chloride 95 L (98-107) mmol/L BUN 72 H (9-20) mg/dL Creatinine 2.20 H (0.66-1.25) mg/dL Glucose 632 H* (74-99) mg/dL POC Glucose (mg/dL) (70-110) mg/dL Phosphorus 5.3 H (2.5-4.5) mg/dL Crossmatch See Detail 10/07/24 10/07/24 10/07/24 Range/Units 04:46 04:48 05:47 RBC (4.40-5.60) 10*6/uL Hgb (13.0-17.0) g/dL Hct (39.6-50.0) % MCHC (32.0-37.0) g/dL ABG pH 7.33 L (7.35-7.45) ABG Total CO2 25 H (19-24) mmol/L ABG O2 Saturation 98.2 H (94-97) % Hemoglobin 7.4 L (13.0-17.5) gm/dL Sodium (137-145) mmol/L Potassium (3.5-5.1) mmol/L Chloride (98-107) mmol/L BUN (9-20) mg/dL Creatinine (0.66-1.25) mg/dL Glucose (74-99) mg/dL POC Glucose (mg/dL) >600 H* >600 H* (70-110) mg/dL Phosphorus (2.5-4.5) mg/dL Crossmatch 10/07/24 10/07/24 10/07/24 Range/Units 06:52 08:02 09:05 RBC (4.40-5.60) 10*6/uL Hgb (13.0-17.0) g/dL Hct (39.6-50.0) % MCHC (32.0-37.0) g/dL ABG pH (7.35-7.45) ABG Total CO2 (19-24) mmol/L ABG O2 Saturation (94-97) % Hemoglobin (13.0-17.5) gm/dL Sodium (137-145) mmol/L Potassium (3.5-5.1) mmol/L Chloride (98-107) mmol/L BUN (9-20) mg/dL Creatinine (0.66-1.25) mg/dL Glucose (74-99) mg/dL POC Glucose (mg/dL) >600 H* 539 H* 501 H* (70-110) mg/dL Phosphorus (2.5-4.5) mg/dL Crossmatch 10/07/24 10/07/24 Range/Units 10:00 11:06 RBC (4.40-5.60) 10*6/uL Hgb (13.0-17.0) g/dL Hct (39.6-50.0) % MCHC (32.0-37.0) g/dL ABG pH (7.35-7.45) ABG Total CO2 (19-24) mmol/L ABG O2 Saturation (94-97) % Hemoglobin (13.0-17.5) gm/dL Sodium (137-145) mmol/L Potassium (3.5-5.1) mmol/L Chloride (98-107) mmol/L BUN (9-20) mg/dL Creatinine (0.66-1.25) mg/dL Glucose (74-99) mg/dL POC Glucose (mg/dL) 389 H 294 H (70-110) mg/dL Phosphorus (2.5-4.5) mg/dL Crossmatch Microbiology - Last 24 Hours (Table) 10/05/24 10:29 Blood Culture - Preliminary Blood Assessment and Plan Assessment: Impression: Acute on chronic hypoxic respiratory failure still intubated and mechanically ventilated, multifactorial but mostly related to multidrug- resistant Pseudomonas aeruginosa pneumonia. Patient had candidemia/Bella parapsilosis group, fully treated with Eraxis x 3 weeks. Septic shock, secondary to above and previously pseudomonal pneumonia, resolved Candidemia with positive yeast in blood cultures has been on treatment for the last 3 weeks receiving Eraxis. This was completed/stopped 10/06/2024.. Follow- up fungal cultures have been negative. Chronic hypoxic and hypercapnic respiratory failure, patient is ventilator dependent, patient has been recently on home ventilator History of severe tracheal stenosis History of tracheostomy History of recurrent pneumonias involving left lower lobe Tracheobronchomalacia History of DVT History of CVA Acute kidney injury/ATN, requiring hemodialysis. History of right below-knee amputation History of asystole/cardiac arrest 2021. 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 Patient is maintained mostly on TPN. Bipedal edema with fluid overload hence patient was placed on Lasix. Recommendation: Continue ventilatory support, patient is chronically ventilated and is ventilator dependent Finished full course of Eraxis on 10/06 and finished full treatment with antibiotics Continue TPN/nutritional support Transfuse with 1 unit of packed RBCs for low hemoglobin of 6.9 today. Continue hemodialysis as felt necessary by nephrology on the case. Continue GI and DVT prophylaxis/Protonix Continue bronchodilators Remains very critically ill. Change Solu-Medrol to 50 mg IV push every 12 hours Continue insulin drip and titrate accordingly Critical care time is 34 minutes Overall prognosis remains extremely poor. We will continue to follow Time with Patient: Greater than 30
--- NOTE | 2024-10-07 12:05 | P.PN ---
Subjective Patient is seen for follow-up for acute kidney injury. Patient remains on the vent. He is awake. Started hemodialysis on 09/22/2024 for volume overload and worsening acute kidney injury Patient remains oliguric. Urine output 0 to 5 mL/h FiO2 at 30% Seen on hemodialysis today. No significant issues today. Objective - Vital Signs Vital signs: Vital Signs Temp 97.8 F 10/07/24 08:19 Pulse 83 10/07/24 11:46 Resp 21 10/07/24 10:00 BP 123/76 10/07/24 10:00 Pulse Ox 95 10/07/24 10:00 FiO2 30 10/07/24 11:39 Intake & Output 10/06/24 10/07/24 10/07/24 18:59 06:59 18:59 Intake Total 3736.307 5832.971 1741.423 Output Total 15 630 1115 Balance 9327.403 6379.971 626.423 Weight 89.7 kg 91 kg Intake: IV 156 156 267 0.9 KVO 120 120 0 Pressure Bag 36 36 12 TPN 255 Intake, IV Titration 487.248 9464.971 1164.423 Amount Insulin Regular 100 unit 15.077 84.923 In Sodium Chloride 0.9% 100 ml @ Titrate IV .Q0M [facility] Rx#:[id number] Mvi, Adult No.4 with Vit 1079.5 K 10 ml Trace (Conc-1Ml/ Dose) 1 ml Sodium Acetate 40 meq Sodium Chloride 4Meq/ml Vial 90 meq Calcium Gluconate 0.5 gm Potassium Chloride 30 meq Magnesium Sulfate gm 0.5 gm Sodium Phosphate 15 mmol In Amino Acids 5 %/ Dextrose 20 % 1,000 ml @ 85 mls/hr IV .BY DURATION [facility] Rx#:[id number] Norepinephrine 8 mg In 136.737 13.569 Sodium Chloride 0.9% 250 ml @ 0.03 MCG/KG/MIN 6. 513 mls/hr IV .Q24H [facility] Rx#:[id number] Sodium Acetate 40 meq 7.083 997.333 Sodium Chloride 4Meq/ml Vial 90 meq Calcium Gluconate 0.5 gm Potassium Chloride 30 meq Magnesium Sulfate gm 0.5 gm Sodium Phosphate 15 mmol In Amino Acids 5 %/ Dextrose 20 % 1,000 ml @ 85 mls/hr IV .BY DURATION [facility] Rx#:[id number] propofoL 1,000 mg In 88.504 68.992 Empty Bag 1 bag @ 50 MCG/ KG/MIN 32.34 mls/hr IV . Q3H6M [facility] Rx#:[id number] TPN/PPN 900 1020 TPN 900 1020 Blood Product 0 310 Rc As-1 Unit 0 310 [id number] Output: Urine 15 30 15 Stool 600 1100 Other: Voiding Method Indwelling Catheter Indwelling Catheter Indwelling Catheter ABP, PAP, CO, CI - Last Documented Arterial Blood Pressure 49/44 - Exam Patient is on the vent he is awake. Examination of the heart S1 and S2 Tracheostomy noted Examination of the lungs bilateral breath sounds are heard Abdomen is distended Examination of lower extremities shows right BKA and 2+ edema in the left leg - Labs CBC & Chem 7: 10/07/24 03:52 10/07/24 03:52 Labs: Abnormal Lab Results - Last 24 Hours (Table) 10/06/24 10/06/24 10/07/24 Range/Units 16:45 23:10 03:52 RBC (4.40-5.60) 10*6/uL Hgb (13.0-17.0) g/dL Hct (39.6-50.0) % MCHC (32.0-37.0) g/dL ABG pH (7.35-7.45) ABG Total CO2 (19-24) mmol/L ABG O2 Saturation (94-97) % Hemoglobin (13.0-17.5) gm/dL Sodium 129 L (137-145) mmol/L Potassium 5.9 H (3.5-5.1) mmol/L Chloride 95 L (98-107) mmol/L BUN 72 H (9-20) mg/dL Creatinine 2.20 H (0.66-1.25) mg/dL Glucose 632 H* (74-99) mg/dL POC Glucose (mg/dL) 484 H 582 H* (70-110) mg/dL Phosphorus 5.3 H (2.5-4.5) mg/dL Crossmatch 10/07/24 10/07/24 10/07/24 Range/Units 03:52 04:22 04:46 RBC 2.50 L (4.40-5.60) 10*6/uL Hgb 6.9 L* (13.0-17.0) g/dL Hct 22.8 L (39.6-50.0) % MCHC 30.3 L (32.0-37.0) g/dL ABG pH 7.33 L (7.35-7.45) ABG Total CO2 25 H (19-24) mmol/L ABG O2 Saturation 98.2 H (94-97) % Hemoglobin 7.4 L (13.0-17.5) gm/dL Sodium (137-145) mmol/L Potassium (3.5-5.1) mmol/L Chloride (98-107) mmol/L BUN (9-20) mg/dL Creatinine (0.66-1.25) mg/dL Glucose (74-99) mg/dL POC Glucose (mg/dL) (70-110) mg/dL Phosphorus (2.5-4.5) mg/dL Crossmatch See Detail 10/07/24 10/07/24 10/07/24 Range/Units 04:48 05:47 06:52 RBC (4.40-5.60) 10*6/uL Hgb (13.0-17.0) g/dL Hct (39.6-50.0) % MCHC (32.0-37.0) g/dL ABG pH (7.35-7.45) ABG Total CO2 (19-24) mmol/L ABG O2 Saturation (94-97) % Hemoglobin (13.0-17.5) gm/dL Sodium (137-145) mmol/L Potassium (3.5-5.1) mmol/L Chloride (98-107) mmol/L BUN (9-20) mg/dL Creatinine (0.66-1.25) mg/dL Glucose (74-99) mg/dL POC Glucose (mg/dL) >600 H* >600 H* >600 H* (70-110) mg/dL Phosphorus (2.5-4.5) mg/dL Crossmatch 10/07/24 10/07/24 10/07/24 Range/Units 08:02 09:05 10:00 RBC (4.40-5.60) 10*6/uL Hgb (13.0-17.0) g/dL Hct (39.6-50.0) % MCHC (32.0-37.0) g/dL ABG pH (7.35-7.45) ABG Total CO2 (19-24) mmol/L ABG O2 Saturation (94-97) % Hemoglobin (13.0-17.5) gm/dL Sodium (137-145) mmol/L Potassium (3.5-5.1) mmol/L Chloride (98-107) mmol/L BUN (9-20) mg/dL Creatinine (0.66-1.25) mg/dL Glucose (74-99) mg/dL POC Glucose (mg/dL) 539 H* 501 H* 389 H (70-110) mg/dL Phosphorus (2.5-4.5) mg/dL Crossmatch 10/07/24 Range/Units 11:06 RBC (4.40-5.60) 10*6/uL Hgb (13.0-17.0) g/dL Hct (39.6-50.0) % MCHC (32.0-37.0) g/dL ABG pH (7.35-7.45) ABG Total CO2 (19-24) mmol/L ABG O2 Saturation (94-97) % Hemoglobin (13.0-17.5) gm/dL Sodium (137-145) mmol/L Potassium (3.5-5.1) mmol/L Chloride (98-107) mmol/L BUN (9-20) mg/dL Creatinine (0.66-1.25) mg/dL Glucose (74-99) mg/dL POC Glucose (mg/dL) 294 H (70-110) mg/dL Phosphorus (2.5-4.5) mg/dL Crossmatch Microbiology - Last 24 Hours (Table) 10/05/24 10:29 Blood Culture - Preliminary Blood Assessment and Plan Assessment: 1. Acute kidney injury secondary to ATN secondary to septic shock and vancomycin toxicity. Vancomycin level 49.3 on 09/19/2024. Patient remains oliguric with significant volume overload noted. Started hemodialysis on 025. 2. Septic shock secondary to pneumonia and fungemia. 3. Acute blood loss anemia status post packed RBCs transfusion. Hemoglobin stable at 7.1 to 7.9 mg/dL. 4. Volume overload. 5. Chronic hypoxic and hypercapnic respiratory failure, home ventilator dependent. 6. History of cardiac arrest. 8. Status post right BKA. 9. Hyperkalemia associated with severe hyperglycemia. TPN will be adjusted Plan: Maintain hemodialysis on Saturday schedule Maintained on TPN Adjust TPN for hyperkalemia Continue to monitor electrolytes.
[2024-10-07 12:16] LABS: Glucose,Whole Blood 257 mg/dL (70-110)
[2024-10-07] MEDS: [UNRECOGNIZED DRUG - OTHER] IV SCH (12:20)
[2024-10-07] MEDS: SODIUM CHLORIDE IV SCH (12:20)
[2024-10-07] MEDS: SODIUM ACETATE IV SCH (12:20)
[2024-10-07 12:59] LABS: Glucose,Whole Blood 271 mg/dL (70-110)
[2024-10-07 13:14] LABS: HCT 26.5 % (39.6-50.0); MCH 28.1 pg (27.0-32.0); MCHC 32.1 g/dL (32.0-37.0); MCV 87.5 fL (80.0-97.0); Platelet Count 184 10*3/uL (140-440); RBC 3.03 10*6/uL (4.40-5.60); RDW 19.1 % (11.5-14.5); WBC 9.23 10*3/uL (4.50-10.00)
[2024-10-07 13:37] LABS: HGB 8.5 g/dL (13.0-17.0)
[2024-10-07] MEDS: MAGNESIUM SULFATE-D5W PMX 1 GM in DEXTROSE/WATER 1 100ML.BAG IVPB ONE (13:50)
[2024-10-07 15:06] LABS: Glucose,Whole Blood 287 mg/dL (70-110)
[2024-10-07 16:00] LABS: Glucose,Whole Blood 290 mg/dL (70-110)
[2024-10-07 16:56] LABS: Glucose,Whole Blood 267 mg/dL (70-110)
[2024-10-07 18:02] LABS: Glucose,Whole Blood 250 mg/dL (70-110)
[2024-10-07 18:39] LABS: Glucose,Whole Blood 249 mg/dL (70-110)
--- NOTE | 2024-10-07 19:16 | P.PN ---
Subjective Progress Note Date: 10/07/24 Chief Complaint: Short of breath 49-year-old patient, follows with Dr. Murcia History of paraplegia, home vent at night, tracheostomy multiple admissions to the ICU for recurrent pneumonia. Patient's previous bronchial cultures been positive for Pseudomonas. He was discharged recently on IV cefepime. Also has a history of Crohn's disease with previous colectomy diverting ileostomy. History of DVT for which patient is on subcu Lovenox. Also had drug-resistant MRSA Pseudomonas. Patient currently does not have areas significant trach secretions. He has continues TPN. Has a right BKA. He does have slight movement in the right hand. Able to follow commands by nodding his head. Answering questions. He is scared by his elder son open. I was also the DPOA. August 30: Overnight patient started having more secretions through the tracheostomy. Vancomycin was added. Also blood pressure running low patient was put on Levophed drip. Otherwise sinus rhythm. Patient remains on the ventilator. Will also send off stool for C. difficile. Also patient IV cefepime. Getting TPN. August 31: ICU. Patient had positive fluid balance. Was given IV Lasix earlier. Remains on Levophed. Spiking fevers. Getting TPN. Stool negative for C. difficile. Patient is growing MDRO Pseudomonas aeruginosa. ID is ordered IV Zerbaxa. Which is currently not available. Patient's friend is visiting him in the ICU. Light trach secretion September 01: ICU. On the ventilator. FiO2 45%. PEEP of 5. Continues to have light trach secretions. Sputum cultures again growing Pseudomonas. Zerbaxa was obtained and resumed. Blood pressure running low. On Levophed. Patient's younger son at the bedside. Colostomy working fine. Has been spiking fevers. Cooling blanket. Ice packs. September 02: ICU. Ventilator FiO2 45%. PEEP of 5. Continues to have some trach secretions. IV Zerbaxa IV tobramycin. TPN lipids to continue. Also Levophed. Patient started cooling blankets since yesterday for temperatures. Along with the nurse speech therapy records were reviewed from last few admissions. Patient with multiple MBS and bedside swallow eval. No trouble with swallowing. Patient put on a chopped diet. Thin liquids. Patient did spike a fever of 101.7 earlier today. Low ionized calcium. IV gluconate given. September 03: ICU. On ventilator FiO2 45%. PEEP of 5. Mild trach secretions. Getting IV TPN lipids. IV tobramycin. Zerbaxa was substituted to Avycaz. By ID. No fever per se since yesterday. For blood pressure patient is also on Levophed and vasopressin. September 04: ICU. On ventilator FiO2 45%. PEEP of 5. Clear trach secretions. Getting IV TPN lipids. IV tobramycin. And IV Avycaz. Remains afebrile.. On Levophed and vasopressin. Awake. 09/06/2024 Patient is seen and evaluated in ICU; remains on mechanical ventilator, actually his home ventilator, with settings of volume assist-control, rate 20, tidal volume 450, FiO2 45%, PEEP of 5. - patient has been refusing blood; no ABGs to. He is getting lactated Ringer's at 50 cc an hour, TPN at 65 cc an hour. - patient remains on the same antibiotics. - Labs reviewed which reveal white count 5.21, hemoglobin 7.9, hematocrit 27.5, and platelet count 64,000. Sodium 141, potassium 3.5, chlorides 102, CO2 32, BUN 25, and creatinine 0.35. Glucose is 152. Calcium is 8. Albumin is 2.1. -Chest x-ray is largely unchanged. Critical care managing mechanical ventilation; recommending to add scopolamine patch for increased secretion -Patient remains on Avycaz and tobramycin - Continue with current TPN 09/07 Patient remains in the ICU lethargic. He is s/p tracheostomy Overnight he was more hypoxic they have to increase PEEP to 8. Also has a lot of secretions when needed for secretions suctioning to try to become apneic per Staff. Patient currently receiving Avycaz and tobramycin. on TPN also 09/08 Patient remains in the ICU awake and alert status post tracheostomy. He has contractures of both upper and lower extremities He is complaining from pain in his lungs. He is status post flexible bronchoscopy and bronchoalveolar lavage yesterday. He has previous sputum culture positive for Pseudomonas currently covered with ceftazidime and tobramycin. He is also on Lovenox 90 mg 09/09 Patient still in the ICU on mechanical ventilation via tracheostomy. PEEP is 8.0 as is yesterday Also he spiked little fever to 100.7. IV vancomycin is added to tobramycin and ceftazidime He is getting also bronchoscopy follow-up culture results 09/10 Patient feels clinically the same, he still getting breathing via mechanical ventilation through his tracheostomy with PEEP of 8. Patient feels he is required suctioning through his tracheostomy tube. He denies chest pain or pain anywhere else he can communicate by head signs and gestures. Hemodynamically stable and afebrile hemoglobin 7.4 platelet count 73 Glucose is controlled potassium 3.3 He remains on broad-spectrum antibiotic Rocephin at this time tobramycin and IV vancomycin added yesterday because he had low-grade fever. He is getting TPN. IV fluid Ringer lactate was stopped and patient was started on IV Lasix 20 mg 3 times a day continue with therapeutic dose of Lovenox as well 09/11 Patient remains in the ICU Remains on mechanical ventilation via tracheostomy He status post bronchoalveolar lavage 2 days ago, culture is growing Pseudomonas aeruginosa and corynebacterium Patient remains on broad-spectrum antibiotics with IV vancomycin, tobramycin, ceftazidime On IV Lasix also is on therapeutic dose of Lovenox 90 mg twice daily No IV fluids 09/12 Patient remains in the ICU Clinically close to what he was over the last 2 days still getting oxygen via his tracheostomy He remains on broad-spectrum antibiotic with Ceftin this time and IV vancomycin. Also he is on IV Lasix 20 mg and therapeutic dose of Lovenox. 09/13 Patient remains in the ICU on mechanical ventilation via tracheostomy Patient looks better today, he breathing better Less secretion Fentanyl patch increased 09/14. Patient seen and examined. Patient continues to be on mechanical ventilation via trach mask. Currently on TPN. Currently on IV Zerbaxa and vancomycin 09/15. Patient seen and examined.Vital signs done showed the patient overnight, heart rate 106, blood pressure 107/40, currently on ventilation. Labs reviewed showed WBC 7.27, hemoglobin 7.5, sodium 148 on potassium 4.3, BUN 23, creatinine 0.47 09/16. Patient seen and examined labs reviewed showing WBC 5.45, hemoglobin 9.6, platelet count 131, sodium 146, potassium 4.1, BUN 20, creatinine 0.47. Continue small amount of Levophed. Currently on Zerbaxa and vancomycin. Currently on TPN September 17: ICU. Patient has taken a turn for the worse today. Significant thick white secretions from the trach. Sinus rhythm. Receiving TPN. Patient is on Levophed and vasopressor. Rather high dose. FiO2 [address] of 10. [address] Ho earlier spoke to the patient/family. Remains full code September 18: ICU. Intubated FiO2 70 PEEP of 12. Sinus rhythm. Drips include IV propofol at 50 and Levophed at 0.13. Patient is off vasopressin. Patient secretions. Family at the bedside. September 19: ICU. Intubated. FiO2 50 and a PEEP of 12. Drips include IV Levophed and propofol. Also started on Lasix drip 10 mg an hour yesterday. Secretions present. September 20: ICU. Intubated. FiO2 50 and a PEEP of 12. Hemoglobin 6.3. Secondary to blood being given. Patient been on and off Levophed. On propofol. Lipids have been held. Continues with TPN. Lasix drip was discontinued. Lovenox has been held because of low hemoglobin. Unable anemia is felt to be combination of regular blood draws and possible element element of hemolysis from all the infection. No dark stool. Family at the bedside September 21: ICU. Intubated. Received 2 units of blood yesterday. Hemoglobin 7.6 today. Per nephrology renal replacement therapy. Dialysis access placed by Dr. Cadena. Patient earlier today on Levophed. Propofol. Getting TPN. Sinus rhythm. Urine output decreased September 22: ICU. Intubated. FiO2 15 of PEEP of 12. Seen earlier today. Dialysis being started. Been on IV Levophed propofol. Sinus rhythm. TPN. Sinus rhythm. September 23: ICU. Intubated. Due for another dialysis today. Saw the patient earlier today. Remains on IV Levophed propofol. Sinus rhythm. TPN. On fentanyl patch. September 24: ICU. Intubated. FiO2 40 and PEEP of 12. Remains on IV Levophed and propofol. IV TPN. Decrease trach secretions. IV antibiotics. Was due for dialysis earlier today. September 25: ICU. Intubated. FiO2 30%. Patient getting IV Levophed and propofol. IV TPN. Dialysis today. Receiving IV antibiotics. Does opens eyes occasionally. Some commands per nursing. September 26: ICU. Intubated. FiO2 30 and a PEEP of 8. Had 2 L hemodialysis removed yesterday. Getting hemodialysis today. Aiming for 2 to 3 L. Patient is on propofol. Currently Levophed on hold. Getting TPN. Patient is actually awake and following commands. Sinus rhythm. September 27: ICU. Intubated. FiO2 39 PEEP of 8. No dialysis today. Remains on IV Levophed propofol. TPN. There is a bedside. Patient asked me how is he doing. Had a lengthy information in terms of his guarded prognosis. Did tell him it is his choice about how he wishes to proceed. He needs to decide between treatment benefits versus in the suffering because of that entails from treatment and his recurrent infections etc. Especially in the context of decreased activity. Kidney failure, respiratory failure etc. September 28: ICU. Intubated. FiO2 30 and a PEEP of 8. For dialysis today. Off Levophed this morning. IV propofol. TPN. Some clear light to trach secret ions. Colostomy working. Poor urine output. September 29: ICU. Intubated. IV propofol Levophed. TPN. Awake. Discussed with Dr. Holt. Prognosis very poor. Probably treatment is the point of getting futile. Patient needs about 34 more days to go to long-term ventilator setting. September 30: ICU. Intubated. IV propofol. Currently off Levophed. TPN. Getting dialysis today. Awake. IV antifungal. Given a unit of blood for hemoglobin of 6.9 October 01: ICU. Intubated. IV propofol. Remains on Levophed. TPN dose adjusted. Dialysis. IV aniedulefungin. Eyes open. Vent. FiO2 30%. PEEP 5 September 18: ICU. Intubated. IV propofol. Off Levophed. TPN. Dialysis today. IV aniedulefungin last day on October 06. Per ID. Some trach secretions clear October 03: ICU. Intubated. IV propofol. TPN. Dialysis schedule will now be Saturday. Next dialysis will be on coming Saturday. IV aniedulefungin last day-I October 06. Minimal urine output-5 to 10 cc an hour. Awake. October 04: ICU. Intubated. IV propofol. TPN. Next dialysis on Saturday. IV elevated Lida function. Urine output remains to be minimal. Awake. Mother at the bedside. Does not have any questions. Sinus rhythm. 10/05/2024 Patient seen in follow-up today remains in the ICU on mechanical ventilation FiO2 is 30%. Patient is requiring some small dose Levophed as blood pressures were low maintained on hemodialysis. Multiple consultations following including infectious disease the patient is maintained on Eraxis which will be completed after October 06, 2024. Patient is continued on TPN and will continue. Prognosis remains poor and guarded at this time. 10/06/2024 Patient seen and evaluated in follow-up today with no significant changes other than blood sugars are becoming more elevated likely secondary to Cortef be resumed. Will add long-acting insulin and continue with sliding scale. Would recommend ACHS as well as at 2 AM as needed. Patient is afebrile continued on mechanical ventilation and will be completing Eraxis today. 10/07/2024 Patient seen in follow-up today continues on mechanical ventilation with an FiO2 of 30%, currently awake following commands and is maintained on low-dose propofol. Blood sugars extremely elevated above 500 and had started long-acting although no improvement, likely secondary to Solu-Cortef and is placed on insulin drip. Will adjust accordingly and titrate and attempt to wean as tolerated. Patient has completed Eraxis with infectious disease following closely. Hemoglobin was also noted to be low at 6.9 today and being transfused 1 unit and will follow-up on repeat labs this afternoon. Patient is scheduled to receive hemodialysis today. Patient is requesting if he can eat although is maintained on TPN and now with blood sugars of 500, no plans for resuming a diet as of today. Social history: Patient started smoking at the age of [age] 1 pack a day stopped in 2017. Nonambulatory. Is cared by his son river. Who is also the [facility] Physical examination: GENERAL:, 49-year-old male who is awake, alert and oriented x 3, following comma nds continued on mechanical ventilation via tracheostomy with an FiO2 of 30% EYES: Pupils equal. Conjunctiva loan l. HEENT: External appearance of nose and ears normal, oral cavity dry NECK: JVD unable to assess; masses not palpable. Tracheostomy HEART: First and second heart sounds are normal; no edema. LUNGS: decreased breath sounds bilaterally, some crackles ABDOMEN: Soft, nontender, liver spleen not palpable, no masses palpable. Double barrel ostomy. PSYCH: Following simple commands MUSCULOSKELETAL: Right BKA. Left foot drop. Left hand contracture. Right hand also with contracture but able to have some movements NEUROLOGICAL: Cranial nerves grossly intact; no facial asymmetry, slight movement in the right arm. Assessment plan: - Basilar pneumonia. Previous admission sputum was positive for Pseudomonas aeruginosa - Candidemia likely source left chest wall PICC line that has been discontinued. And repeat blood cultures on September 22 negative. Line changes are being followed by ID IV Eraxis-patient has completed Eraxis - Fluid overload Had received Lasix drip - Acute kidney injury from ATN from septic shock. And possibly vancomycin toxicity. Oliguric. Volume overload. First dialysis was on September 22.-Has been getting dialysis nearly daily. From now on dialysis schedule be Saturday - Metabolic alkalosis - Septic shock: Levophed has been on and off, blood pressures softer today requiring low-dose Levophed - Acute on chronic hypoxic and hypercapnic respiratory failure, vent dependent at night at home: On ventilator support. Propofol - Tracheostomy with trach collar -Acute normocytic anemia of chronic disease and hospital-acquired anemia from blood draws and possible hemolysis from infection Has received 6 units of blood - Thrombocytopenia likely from sepsis: Corrected - Right below-knee amputation history - Chronic quadriparesis. Including left foot drop. Left arm contracture. Some right hand contracture. Some movement in the right arm - Crohn's disease with double barrel ostomy bag in place since 09/2021 - TPN and lipids Lipids have been held during propofol - Hyperglycemia, likely secondary to Solu-Cortef as well as TPN, started on insulin drip 10/07/2024 - Full code - JUAN, haylee PENA Plan: Patient remains in the ICU on mechanical ventilation with an FiO2 of 30% via tracheostomy Continued per propofol along with Dilaudid Patient has completed Eraxis 10/06/2024 per ID recommendations Continue current supportive care Blood sugars are more elevated and uncontrolled likely secondary to Solu-Cortef being resumed, patient being started on insulin drip and will wean as tolerated Recommend follow-up labs in the a.m. including CBC and CMP. Replace electrolytes per protocol. Transfuse if 7 or less on hemoglobin. No active bleeding noted Case management/social work following and awaiting new insurance to become effective regarding discharge planning which will require LTAC Overall prognosis is extremely poor and per family and patient, CODE STATUS remains full code The impression and plan of care has been dictated by Alyssa Hernandez, Nurse Practitioner as directed. Dr. Vicente MD I have performed a history and examination and MDM of this patient, discussed the same with the dictator, and agree with the dictator's assessment and plan as written ,documented as a scribe. Based on total visit time, I have performed more than 50% of the visit. Objective - Vital Signs Vital signs: Vital Signs Temp 99.2 F 10/07/24 04:00 Pulse 92 10/07/24 04:00 Resp 25 H 10/07/24 04:00 BP 113/52 10/07/24 04:00 Pulse Ox 97 10/07/24 04:00 FiO2 30 10/07/24 04:45 Intake & Output 10/06/24 10/06/24 10/07/24 06:59 18:59 06:59 Intake Total 7280.568 5295.324 2059.894 Output Total 920 15 620 Balance 312.225 0599.324 1439.894 Weight 89.7 kg 89.7 kg 91 kg Intake: IV 153 156 130 0.9 KVO 120 120 100 Pressure Bag 33 36 30 Intake, IV Titration 213.985 750.593 6355.894 Amount Norepinephrine 8 mg In 149.413 136.737 13.569 Sodium Chloride 0.9% 250 ml @ 0.03 MCG/KG/MIN 6. 513 mls/hr IV .Q24H ANNIE Rx#:[id number] Sodium Acetate 40 meq 7.083 997.333 Sodium Chloride 4Meq/ml Vial 90 meq Calcium Gluconate 0.5 gm Potassium Chloride 30 meq Magnesium Sulfate gm 0.5 gm Sodium Phosphate 15 mmol In Amino Acids 5 %/ Dextrose 20 % 1,000 ml @ 85 mls/hr IV .BY DURATION ANNIE Rx#:[id number] propofoL 1,000 mg In 64.572 88.504 68.992 Empty Bag 1 bag @ 50 MCG/ KG/MIN 32.34 mls/hr IV . Q3H6M ANNIE Rx#:[id number] TPN/PPN 1020 900 850 TPN 1020 900 850 Output: Urine 20 15 20 Stool 900 600 Other: Voiding Method Indwelling Catheter Indwelling Catheter Indwelling Catheter ABP, PAP, CO, CI - Last Documented Arterial Blood Pressure - Labs CBC & Chem 7: 10/07/24 12:59 10/07/24 03:52 Labs: Abnormal Lab Results - Last 24 Hours (Table) 10/06/24 10/06/24 10/06/24 Range/Units 04:57 05:25 06:50 RBC 2.81 L (4.40-5.60) 10*6/uL Hgb 7.6 L (13.0-17.0) g/dL Hct 25.6 L (39.6-50.0) % MCHC 29.7 L (32.0-37.0) g/dL Sodium 131 L (137-145) mmol/L Potassium (3.5-5.1) mmol/L Chloride 95 L (98-107) mmol/L BUN 47 H (9-20) mg/dL Creatinine 1.62 H (0.66-1.25) mg/dL Glucose 291 H (74-99) mg/dL POC Glucose (mg/dL) 313 H (70-110) mg/dL Phosphorus (2.5-4.5) mg/dL 10/06/24 10/06/24 10/06/24 Range/Units 11:53 16:45 23:10 RBC (4.40-5.60) 10*6/uL Hgb (13.0-17.0) g/dL Hct (39.6-50.0) % MCHC (32.0-37.0) g/dL Sodium (137-145) mmol/L Potassium (3.5-5.1) mmol/L Chloride (98-107) mmol/L BUN (9-20) mg/dL Creatinine (0.66-1.25) mg/dL Glucose (74-99) mg/dL POC Glucose (mg/dL) 331 H 484 H 582 H* (70-110) mg/dL Phosphorus (2.5-4.5) mg/dL 10/07/24 10/07/24 Range/Units 03:52 03:52 RBC 2.50 L (4.40-5.60) 10*6/uL Hgb 6.9 L* (13.0-17.0) g/dL Hct 22.8 L (39.6-50.0) % MCHC 30.3 L (32.0-37.0) g/dL Sodium 129 L (137-145) mmol/L Potassium 5.9 H (3.5-5.1) mmol/L Chloride 95 L (98-107) mmol/L BUN 72 H (9-20) mg/dL Creatinine 2.20 H (0.66-1.25) mg/dL Glucose 632 H* (74-99) mg/dL POC Glucose (mg/dL) (70-110) mg/dL Phosphorus 5.3 H (2.5-4.5) mg/dL Microbiology - Last 24 Hours (Table) 10/05/24 10:29 Blood Culture - Preliminary Blood
[2024-10-07 20:06] LABS: Glucose,Whole Blood 206 mg/dL (70-110)
[2024-10-07 21:05] LABS: Glucose,Whole Blood 175 mg/dL (70-110)
[2024-10-07 22:04] LABS: Glucose,Whole Blood 137 mg/dL (70-110)
[2024-10-07 23:02] LABS: Glucose,Whole Blood 140 mg/dL (70-110)
[2024-10-08 00:11] LABS: Glucose,Whole Blood 163 mg/dL (70-110)
[2024-10-08 02:05] LABS: Glucose,Whole Blood 231 mg/dL (70-110)
[2024-10-08 03:02] LABS: Glucose,Whole Blood 248 mg/dL (70-110)
[2024-10-08 04:06] LABS: Glucose,Whole Blood 238 mg/dL (70-110)
[2024-10-08 04:21] LABS: HCT 26.4 % (39.6-50.0); HGB 8.2 g/dL (13.0-17.0); MCH 27.8 pg (27.0-32.0); MCHC 31.1 g/dL (32.0-37.0); MCV 89.5 fL (80.0-97.0); Platelet Count 189 10*3/uL (140-440); RBC 2.95 10*6/uL (4.40-5.60); RDW 19.5 % (11.5-14.5); WBC 7.01 10*3/uL (4.50-10.00)
[2024-10-08 04:36] LABS: African American GFR (CKD) 64 (>60 ml/min/1.73 sqM); Anion Gap 12 mmol/L; Blood Urea Nitrogen 51 mg/dL (9-20); Calcium 9.4 mg/dL (8.4-10.2); Carbon Dioxide 25 mmol/L (22-30); Chloride 96 mmol/L (98-107); Glucose 234 mg/dL (74-99); Magnesium 1.9 mg/dL (1.6-2.3); Non-African American GFR(CKD) 55 (>60 ml/min/1.73 sqM); Potassium 4.3 mmol/L (3.5-5.1); Sodium 133 mmol/L (137-145)
[2024-10-08 05:10] LABS: Glucose,Whole Blood 233 mg/dL (70-110)
[2024-10-08 06:05] LABS: Glucose,Whole Blood 187 mg/dL (70-110)
[2024-10-08 07:03] LABS: Glucose,Whole Blood 173 mg/dL (70-110)
--- NOTE | 2024-10-08 08:14 | XR ---
EXAMINATION TYPE: XR chest 1V portable DATE OF EXAM: 10/08/2024 5:17 AM COMPARISON: None. CLINICAL INDICATION: Male, 49 years old with history of Mechanical ventilation, difficulty breathing TECHNIQUE: XR chest 1V portable view(s) obtained. FINDINGS: The heart size is normal. The pulmonary vasculature is somewhat prominent. Mild diffuse increased lung markings are present, worsening from comparison. Correlate for pulmonary edema. Small left pleural effusion is present. Catheter is present on the left at the tip within the deep right atrium. Tracheostomy tube is in the midline. IMPRESSION: 1. Clinical correlation for pulmonary edema and volume overload, worsening. 2. Lines and catheters discussed above [facility], , 10/08/2024 8:12 AM
[2024-10-08 08:16] LABS: Glucose,Whole Blood 133 mg/dL (70-110)
[2024-10-08 09:08] LABS: Glucose,Whole Blood 123 mg/dL (70-110)
[2024-10-08] MEDS: INSULIN LISPRO (HumaLOG) 100 UNIT/ML 10 mL VL SQ SCH ×2 (09:22→13:36)
[2024-10-08] MEDS: INSULIN GLARGINE (LANTUS) 100 UNIT/ML SYR SQ SCH (09:53)
--- NOTE | 2024-10-08 11:26 | P.PN ---
Subjective Progress Note Date: 10/08/24 Principal diagnosis: Acute on chronic hypoxic respiratory failure secondary to bilateral pneumonia secondary to multidrug resistant Pseudomonas aeruginosa., Candidemia/fungemia This is a 49-year-old white male familiar to my service, history of paraplegia, home vent dependent, history of tracheostomy, patient had multiple admissions to the ICU for recurrent episodes of pneumonia and respiratory failure requiring ventilatory support. On his last admission patient was eventually discharged home on a home ventilator, and this was back on 08/04/2024. Patient was discharged home with a PICC line, patient was in the ER yesterday on 08/28 for abnormal labs mostly low potassium and low sodium discharged home however he came back today complaining of shortness of breath, has been ventilator dependent all along. Chest x-ray showed basically bibasilar opacities/atelectasis, doubt pneumonia, the findings in the left lower lobe are chronic. Patient did have previous history of pneumonia involving the left lower lobe and he had multiple bronchoscopies in the past. Bronchial cultures and sputum cultures have been positive in the past for mostly Pseudomonas aeruginosa. Patient was seen in the ER today, and he is already on cefepime for empiric coverage for potential left lower lobe pneumonia, patient had abnormal electrolytes with relatively low sodium low potassium, no leukocytosis, normal renal profile, blood pressure was soft, and he was given fluid boluses. Lactic acid was 2.1, D-dimer is normal, patient was admitted, and this consult was initiated. 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 On 10/03/2024, the patient is clinically unchanged. Remains on propofol at 10 mcg/kg/min. Calm and comfortable. Responsive and awake. Evening was uneventful. Remains on a mechanical ventilator. Assist-control of 24, tidal volume of 400, FiO2 30% with a PEEP of 5. No blood gases from today. Follow-up chest x-ray from today is showing stable findings without any acute interval ch kelvin and the patient continues to have persistent interstitial opacities bilaterally. The patient remains on TPN at rate of 85 cc an hour. Off pressors. White cell count is 6 with hemoglobin 7.1 and a platelet count of 206. BUN 34 with a creatinine of 1.3. Sodium is at 133. On 10/04/2024, there is absolutely no change in the patient's condition. The patient is resting comfortably on propofol low-dose at 10 mcg. He remains on mechanical ventilator, unable to wean him off the mechanical ventilator and is vent dependent with an assist-control mode at rate of 24, tidal volume of 400, FiO2 of 30% and the PEEP of 5. Chest x-ray remains unchanged. The patient is afebrile and hemodynamically stable, completing the course of Eraxis. Remains on TPN for nutritional support rate of 55 cc an hour. Urine output is minimal and undergoing periodic hemodialysis. The white cell count is 5.9, hemoglobin 7.9, BUN is 59 with a creatinine of 1.9. Potassium levels of 4.5. Next hemodialysis session is on 10/05/2024. Patient was seen today on 10/05/2024, remains in the ICU, intubated mechanically ventilated, on assist-control rate of 24 tidal volume 400 FiO2 30% and PEEP of 5. Remains on propofol 10 mcg/kg/min remains on TPN at 85 cc/h remains on Eraxis patient is sedated but he is arousable and he follows simple instructions. However he is profoundly weak not to mention the patient is p araplegic. Labs today show WBC count of 5.9 hemoglobin is 7 electrolytes are relatively normal bicarb is 21 BUN is 79 creatinine 2.61 patient is receiving hemodialysis this morning. Liver enzymes are a bit elevated with bilirubin of 2.7 AST 39 ALT 59 and alkaline phosphatase of 165. Albumin is 2.5. Chest x-ray continues to show left-sided double-lumen dialysis catheter there is also ongoing pulmonary vascular congestion, possible minimal infiltrates. Medications were reviewed patient remains on Eraxis, Peridex, Aranesp, fentanyl patches, heparin subcu every 8 hours, Dilaudid as needed, insulin as per protocol, DuoNeb updraft 4 times daily and as needed, Ativan as needed, presently off norepinephrine, continues to be on Zofran as needed and Protonix, propofol, and he is off antibiotics except for his Eraxis. Seen today on 10/06/2024, remains in the ICU, intubated and mechanically mrage tilated, he is on assist-control rate of 24 tidal volume 400 FiO2 30% and PEEP of 5. ABG showed a PO2 of 81 pCO2 48 pH of 7.35. Patient is on norepinephrine at 0.05 mcg/kg/min he has borderline blood pressure requiring norepinephrine this morning, hence I went back and placed the patient on Solu-Cortef which was discontinued few days ago. Remains on Eraxis stopped date will be today. Patient is on TPN at 85 mL/h. He is still intermittently getting hemodialysis. Patient is arousable in spite of being on propofol, follows instructions but he looks chronically ill, frail, and debilitated. WBC count today is 8.0 hemoglobin 7.6 hematocrit 25.6 blood sugar is 331. Renal profile showed BUN of 47 creatinine 1.62 otherwise the rest of the labs were unremarkable. Chest x- ray continues to show small minimal pleural effusion and improved aeration compared to prior studies. Medications will all reviewed on Eraxis, Peridex, Aranesp, fentanyl patches, heparin subcu every 8 hours, Dilaudid as needed, insulin as per protocol, DuoNeb updraft 4 times daily and as needed, Ativan as needed, presently off norepinephrine, continues to be on Zofran as needed and Protonix, propofol, and he is off antibiotics except for his Eraxis. Patient was seen today on 10/07/2024, remains in the ICU, intubated and mechanically ventilated, patient is on assist-control rate of 24 tidal volume 400 FiO2 30% PEEP of 5 ABG showed a pO2 of 93 pCO2 45 pH of 7.33 hence no changes were made with his vent settings. Remains on low-dose propofol at 10 mg/kg/min he is on TPN at 85 cc/h sugars are running high requiring insulin drip he is on 18.32 units/h hence I cut down on his Solu-Cortef to 50 mg IV push every 12 hours. Today he is off norepinephrine was put on hold at 9 PM last night. Patient is off Eraxis off antibiotics, considering the patient is chronically debilitated and chronically ill, patient is ventilator dependent, we are experiencing significant difficulty in placement of this patient. Today he will receive a unit of packed RBCs for hemoglobin of 6.9. WBC count today is 5.2 hemoglobin 6.9 platelets are 167 sodium is low 129 potassium 5.9 BUN 72 creatinine 2.2 patient will be receiving another hemodialysis today. Blood sugar is as high as 632 hence the low sodium is really more of the pseudohyponatremia. Patient was seen today on 10/08/2024, remains in the ICU, intubated and mech anically ventilated. Patient is on assist-control rate 44 tidal volume 400 FiO2 30% and PEEP of 5 patient is arousable, follows simple instructions, seems to be profoundly weak. Remains on TPN, his norepinephrine remains on hold. Blood sugars seem to be better controlled, today I am recommending the Lantus insulin and NovoLog insulin subcu as per protocol/Accu-Cheks. His WBC count is 7 hemoglobin 8.2 hematocrit is 26.4. Platelets are 189. Electrolytes are normal BUN is 51 creatinine 1.48. Patient remains on hemodialysis. Patient remains on Solu-Cortef, I am cutting the dose down to 25 mg IV push every 12 hours, eventually would like to placed on oral Cortef. Objective - Vital Signs Vital signs: Vital Signs Temp 98.2 F 10/08/24 08:00 Pulse 71 10/08/24 11:00 Resp 24 10/08/24 11:00 BP 139/60 10/08/24 11:00 Pulse Ox 97 10/08/24 11:00 FiO2 30 10/08/24 08:00 Intake & Output 10/07/24 10/08/24 10/08/24 18:59 06:59 18:59 Intake Total 3340.696 1081.999 461.964 Output Total 7011 310 5 Balance -3670.304 771.999 456.964 Weight 90.9 kg 90.9 kg Intake: IV 1059 968 425 0.9 KVO 0 Pressure Bag 39 33 TPN 1020 935 425 Intake, IV Titration 1471.696 113.999 36.964 Amount Insulin Regular 100 unit 318.137 113.999 36.964 In Sodium Chloride 0.9% 100 ml @ Titrate IV .Q0M [facility] Rx#:[id number] Mvi, Adult No.4 with Vit 1079.5 K 10 ml Trace (Conc-1Ml/ Dose) 1 ml Sodium Acetate 40 meq Sodium Chloride 4Meq/ml Vial 90 meq Calcium Gluconate 0.5 gm Potassium Chloride 30 meq Magnesium Sulfate gm 0.5 gm Sodium Phosphate 15 mmol In Amino Acids 5 %/ Dextrose 20 % 1,000 ml @ 85 mls/hr IV .BY DURATION ANNIE Rx#:[id number] propofoL 1,000 mg In 74.059 Empty Bag 1 bag @ 50 MCG/ KG/MIN 32.34 mls/hr IV . Q3H6M ANNIE Rx#:[id number] Blood Product 310 Rc As-1 Unit 310 [id number] Hemodialysis 500 Output: Urine 11 10 5 Stool 1100 300 Hemodialysis 3200 Hemodialysis Net Amount 2700 Other: Voiding Method Indwelling Catheter Indwelling Catheter Indwelling Catheter ABP, PAP, CO, CI - Last Documented Arterial Blood Pressure - Exam GENERAL EXAM: 49-year-old white male intubated mechanically ventilated, tracheo stomy in place HEAD: Normocephalic. Tracheostomy is intact. Left IJ hemodialysis catheter is noted. EYES: Normal reaction of pupils, equal size. NOSE: Clear with pink turbinates. THROAT: Tracheostomy tube secured in place. NECK: No masses, no JVD. CHEST: No chest wall deformity. LUNGS: Diminished breath sound bilaterally no crackles rhonchi or wheezes CVS: S1 and S2 normal with no audible murmur, regular rhythm. ABDOMEN: Enterocutaneous fistula over the abdominal wall. No hepatosplenomega ly, normal bowel sounds. SKIN: No rashes, patient is quite edematous CENTRAL NERVOUS SYSTEM: Awake, follows simple instructions but profoundly weak. EXTREMITIES: Bilateral edema, extensive muscle atrophy. Contractures. There is no peripheral edema. No clubbing, no cyanosis. Peripheral pulses are intact. Right below-knee amputation is noted. - Labs CBC & Chem 7: 10/08/24 03:18 10/08/24 03:18 Labs: Abnormal Lab Results - Last 24 Hours (Table) 10/07/24 10/07/24 10/07/24 Range/Units 12:14 12:57 12:59 RBC 3.03 L (4.40-5.60) 10*6/uL Hgb 8.5 L D (13.0-17.0) g/dL Hct 26.5 L (39.6-50.0) % MCHC (32.0-37.0) g/dL Sodium (137-145) mmol/L Chloride (98-107) mmol/L BUN (9-20) mg/dL Creatinine (0.66-1.25) mg/dL Glucose (74-99) mg/dL POC Glucose (mg/dL) 257 H 271 H (70-110) mg/dL 10/07/24 10/07/24 10/07/24 Range/Units 15:05 15:57 16:55 RBC (4.40-5.60) 10*6/uL Hgb (13.0-17.0) g/dL Hct (39.6-50.0) % MCHC (32.0-37.0) g/dL Sodium (137-145) mmol/L Chloride (98-107) mmol/L BUN (9-20) mg/dL Creatinine (0.66-1.25) mg/dL Glucose (74-99) mg/dL POC Glucose (mg/dL) 287 H 290 H 267 H (70-110) mg/dL 10/07/24 10/07/24 10/07/24 Range/Units 18:00 18:38 20:05 RBC (4.40-5.60) 10*6/uL Hgb (13.0-17.0) g/dL Hct (39.6-50.0) % MCHC (32.0-37.0) g/dL Sodium (137-145) mmol/L Chloride (98-107) mmol/L BUN (9-20) mg/dL Creatinine (0.66-1.25) mg/dL Glucose (74-99) mg/dL POC Glucose (mg/dL) 250 H 249 H 206 H (70-110) mg/dL 10/07/24 10/07/24 10/07/24 Range/Units 21:04 22:03 23:00 RBC (4.40-5.60) 10*6/uL Hgb (13.0-17.0) g/dL Hct (39.6-50.0) % MCHC (32.0-37.0) g/dL Sodium (137-145) mmol/L Chloride (98-107) mmol/L BUN (9-20) mg/dL Creatinine (0.66-1.25) mg/dL Glucose (74-99) mg/dL POC Glucose (mg/dL) 175 H 137 H 140 H (70-110) mg/dL 10/08/24 10/08/24 10/08/24 Range/Units 00:10 02:05 03:01 RBC (4.40-5.60) 10*6/uL Hgb (13.0-17.0) g/dL Hct (39.6-50.0) % MCHC (32.0-37.0) g/dL Sodium (137-145) mmol/L Chloride (98-107) mmol/L BUN (9-20) mg/dL Creatinine (0.66-1.25) mg/dL Glucose (74-99) mg/dL POC Glucose (mg/dL) 163 H 231 H 248 H (70-110) mg/dL 10/08/24 10/08/24 10/08/24 Range/Units 03:18 03:18 04:04 RBC 2.95 L (4.40-5.60) 10*6/uL Hgb 8.2 L (13.0-17.0) g/dL Hct 26.4 L (39.6-50.0) % MCHC 31.1 L (32.0-37.0) g/dL Sodium 133 L (137-145) mmol/L Chloride 96 L (98-107) mmol/L BUN 51 H (9-20) mg/dL Creatinine 1.48 H (0.66-1.25) mg/dL Glucose 234 H (74-99) mg/dL POC Glucose (mg/dL) 238 H (70-110) mg/dL 10/08/24 10/08/24 10/08/24 Range/Units 05:08 06:03 07:01 RBC (4.40-5.60) 10*6/uL Hgb (13.0-17.0) g/dL Hct (39.6-50.0) % MCHC (32.0-37.0) g/dL Sodium (137-145) mmol/L Chloride (98-107) mmol/L BUN (9-20) mg/dL Creatinine (0.66-1.25) mg/dL Glucose (74-99) mg/dL POC Glucose (mg/dL) 233 H 187 H 173 H (70-110) mg/dL 10/08/24 10/08/24 Range/Units 08:05 09:07 RBC (4.40-5.60) 10*6/uL Hgb (13.0-17.0) g/dL Hct (39.6-50.0) % MCHC (32.0-37.0) g/dL Sodium (137-145) mmol/L Chloride (98-107) mmol/L BUN (9-20) mg/dL Creatinine (0.66-1.25) mg/dL Glucose (74-99) mg/dL POC Glucose (mg/dL) 133 H 123 H (70-110) mg/dL Microbiology - Last 24 Hours (Table) 10/05/24 10:29 Blood Culture - Preliminary Blood Assessment and Plan Assessment: Impression: Acute on chronic hypoxic respiratory failure still intubated and mechanically ventilated, multifactorial but mostly related to multidrug- resistant Pseudomonas aeruginosa pneumonia. Patient had candidemia/Bella parapsilosis group, fully treated with Eraxis x 3 weeks. Septic shock, secondary to above and previously pseudomonal pneumonia, resolved Candidemia with positive yeast in blood cultures has been on treatment for the last 3 weeks receiving Eraxis. This was completed/stopped 10/06/2024.. Follow- up fungal cultures have been negative. Chronic hypoxic and hypercapnic respiratory failure, patient is ventilator dependent, patient has been recently on home ventilator History of severe tracheal stenosis History of tracheostomy History of recurrent pneumonias involving left lower lobe Tracheobronchomalacia History of DVT History of CVA Acute kidney injury/ATN, requiring hemodialysis. History of right below-knee amputation History of asystole/cardiac arrest 2021. 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 Patient is maintained mostly on TPN. Bipedal edema with fluid overload hence patient was placed on Lasix. Recommendation: Continue ventilatory support, patient is chronically ventilated and is ventilator dependent Patient is now off antifungal and off antibiotics. Continue TPN/nutritional support Cut down Solu-Cortef to 25 mg IV push twice daily Continue hemodialysis as felt necessary by nephrology on the case. Continue GI and DVT prophylaxis/Protonix Continue bronchodilators Remains critically ill Continue subcu insulin including Lantus insulin and NovoLog insulin as per Accu- Cheks will receive 20 units of Lantus insulin daily subcu. Critical care time is 33 minutes Overall prognosis remains extremely poor. We will continue to follow Time with Patient: Greater than 30
--- NOTE | 2024-10-08 12:46 | P.PN ---
Subjective Patient is seen for follow-up for acute kidney injury. Patient remains on the vent. He is awake. Started hemodialysis on 09/22/2024 for volume overload and worsening acute kidney injury Patient remains oliguric. Urine output 0 to 5 mL/h FiO2 at 30% No significant issues today. Objective - Vital Signs Vital signs: Vital Signs Temp 98.4 F 10/08/24 12:00 Pulse 74 10/08/24 12:00 Resp 28 H 10/08/24 12:00 BP 120/53 10/08/24 12:00 Pulse Ox 97 10/08/24 12:00 FiO2 30 10/08/24 12:00 Intake & Output 10/07/24 10/08/24 10/08/24 18:59 06:59 18:59 Intake Total 3340.696 2148.999 546.964 Output Total 7011 310 5 Balance -3670.304 1838.999 541.964 Weight 90.9 kg 90.9 kg Intake: IV 1059 968 510 0.9 KVO 0 Pressure Bag 39 33 TPN 1020 935 510 Intake, IV Titration 4040.884 6646.999 36.964 Amount Insulin Regular 100 unit 318.137 113.999 36.964 In Sodium Chloride 0.9% 100 ml @ Titrate IV .Q0M [facility] Rx#:[id number] Mvi, Adult No.4 with Vit 1079.5 K 10 ml Trace (Conc-1Ml/ Dose) 1 ml Sodium Acetate 40 meq Sodium Chloride 4Meq/ml Vial 90 meq Calcium Gluconate 0.5 gm Potassium Chloride 30 meq Magnesium Sulfate gm 0.5 gm Sodium Phosphate 15 mmol In Amino Acids 5 %/ Dextrose 20 % 1,000 ml @ 85 mls/hr IV .BY DURATION ANNIE Rx#:[id number] Mvi, Adult No.4 with Vit 1067 K 10 ml Trace (Conc-1Ml/ Dose) 1 ml Sodium Acetate 50 meq Sodium Chloride 4Meq/ml Vial 100 meq Calcium Gluconate 0.5 gm Magnesium Sulfate gm 0.5 gm In Amino Acids 5 %/ Dextrose 20 % 1,000 ml @ 85 mls/hr IV .BY DURATION ANNIE Rx#:[id number] propofoL 1,000 mg In 74.059 Empty Bag 1 bag @ 50 MCG/ KG/MIN 32.34 mls/hr IV . Q3H6M ANNIE Rx#:[id number] Blood Product 310 Rc As-1 Unit 310 [id number] Hemodialysis 500 Output: Urine 11 10 5 Stool 1100 300 Hemodialysis 3200 Hemodialysis Net Amount 2700 Other: Voiding Method Indwelling Catheter Indwelling Catheter Indwelling Catheter ABP, PAP, CO, CI - Last Documented Arterial Blood Pressure - Exam Patient is on the vent he is awake. Examination of the heart S1 and S2 Tracheostomy noted Examination of the lungs bilateral breath sounds are heard Abdomen is distended Examination of lower extremities shows right BKA and 2+ edema in the left leg - Labs CBC & Chem 7: 10/08/24 03:18 10/08/24 03:18 Labs: Abnormal Lab Results - Last 24 Hours (Table) 10/07/24 10/07/24 10/07/24 Range/Units 12:57 12:59 15:05 RBC 3.03 L (4.40-5.60) 10*6/uL Hgb 8.5 L D (13.0-17.0) g/dL Hct 26.5 L (39.6-50.0) % MCHC (32.0-37.0) g/dL Sodium (137-145) mmol/L Chloride (98-107) mmol/L BUN (9-20) mg/dL Creatinine (0.66-1.25) mg/dL Glucose (74-99) mg/dL POC Glucose (mg/dL) 271 H 287 H (70-110) mg/dL 10/07/24 10/07/24 10/07/24 Range/Units 15:57 16:55 18:00 RBC (4.40-5.60) 10*6/uL Hgb (13.0-17.0) g/dL Hct (39.6-50.0) % MCHC (32.0-37.0) g/dL Sodium (137-145) mmol/L Chloride (98-107) mmol/L BUN (9-20) mg/dL Creatinine (0.66-1.25) mg/dL Glucose (74-99) mg/dL POC Glucose (mg/dL) 290 H 267 H 250 H (70-110) mg/dL 10/07/24 10/07/24 10/07/24 Range/Units 18:38 20:05 21:04 RBC (4.40-5.60) 10*6/uL Hgb (13.0-17.0) g/dL Hct (39.6-50.0) % MCHC (32.0-37.0) g/dL Sodium (137-145) mmol/L Chloride (98-107) mmol/L BUN (9-20) mg/dL Creatinine (0.66-1.25) mg/dL Glucose (74-99) mg/dL POC Glucose (mg/dL) 249 H 206 H 175 H (70-110) mg/dL 10/07/24 10/07/24 10/08/24 Range/Units 22:03 23:00 00:10 RBC (4.40-5.60) 10*6/uL Hgb (13.0-17.0) g/dL Hct (39.6-50.0) % MCHC (32.0-37.0) g/dL Sodium (137-145) mmol/L Chloride (98-107) mmol/L BUN (9-20) mg/dL Creatinine (0.66-1.25) mg/dL Glucose (74-99) mg/dL POC Glucose (mg/dL) 137 H 140 H 163 H (70-110) mg/dL 10/08/24 10/08/24 10/08/24 Range/Units 02:05 03:01 03:18 RBC (4.40-5.60) 10*6/uL Hgb (13.0-17.0) g/dL Hct (39.6-50.0) % MCHC (32.0-37.0) g/dL Sodium 133 L (137-145) mmol/L Chloride 96 L (98-107) mmol/L BUN 51 H (9-20) mg/dL Creatinine 1.48 H (0.66-1.25) mg/dL Glucose 234 H (74-99) mg/dL POC Glucose (mg/dL) 231 H 248 H (70-110) mg/dL 10/08/24 10/08/24 10/08/24 Range/Units 03:18 04:04 05:08 RBC 2.95 L (4.40-5.60) 10*6/uL Hgb 8.2 L (13.0-17.0) g/dL Hct 26.4 L (39.6-50.0) % MCHC 31.1 L (32.0-37.0) g/dL Sodium (137-145) mmol/L Chloride (98-107) mmol/L BUN (9-20) mg/dL Creatinine (0.66-1.25) mg/dL Glucose (74-99) mg/dL POC Glucose (mg/dL) 238 H 233 H (70-110) mg/dL 10/08/24 10/08/24 10/08/24 Range/Units 06:03 07:01 08:05 RBC (4.40-5.60) 10*6/uL Hgb (13.0-17.0) g/dL Hct (39.6-50.0) % MCHC (32.0-37.0) g/dL Sodium (137-145) mmol/L Chloride (98-107) mmol/L BUN (9-20) mg/dL Creatinine (0.66-1.25) mg/dL Glucose (74-99) mg/dL POC Glucose (mg/dL) 187 H 173 H 133 H (70-110) mg/dL 10/08/24 Range/Units 09:07 RBC (4.40-5.60) 10*6/uL Hgb (13.0-17.0) g/dL Hct (39.6-50.0) % MCHC (32.0-37.0) g/dL Sodium (137-145) mmol/L Chloride (98-107) mmol/L BUN (9-20) mg/dL Creatinine (0.66-1.25) mg/dL Glucose (74-99) mg/dL POC Glucose (mg/dL) 123 H (70-110) mg/dL Microbiology - Last 24 Hours (Table) 10/05/24 10:29 Blood Culture - Preliminary Blood Assessment and Plan Assessment: 1. Acute kidney injury secondary to ATN secondary to septic shock and vancomycin toxicity. Vancomycin level 49.3 on 09/19/2024. Patient remains oliguric with significant volume overload noted. Started hemodialysis on 09/22/2024. 2. Septic shock secondary to pneumonia and fungemia. 3. Acute blood loss anemia status post packed RBCs transfusion. Hemoglobin stable. Maintained on Aranesp 4. Volume overload. 5. Chronic hypoxic and hypercapnic respiratory failure, home ventilator dependent. 6. History of cardiac arrest. 8. Status post right BKA. 9. Hyperkalemia associated with severe hyperglycemia. TPN will be adjusted Plan: Maintain hemodialysis on Saturday schedule Maintained on TPNdjust TPN for hyperkalemia Continue to monitor electrolytes.
[2024-10-08 12:53] LABS: Glucose,Whole Blood 237 mg/dL (70-110)
[2024-10-08] MEDS: FAT EMULSION 20% 250 ML in EMPTY BAG 1 BAG IV SCH (14:27)
--- NOTE | 2024-10-08 15:17 | P.PN ---
Subjective Progress Note Date: 09/21/24 Principal diagnosis: Reason for follow-up is sepsis and pneumonia/candidemia Patient is a 49-year-old male with a past medical history significant for CVA TIA DVT pneumonia history of complicated Crohn's disease in this patient who did have multiple abdominal surgeries patient also have a tracheostomy has been brought to the hospital with Generalized weakness did have a fever concerning for pneumonia on today's evaluation that is 09/21/2024, patient has been afebrile, patient is currently bit on the vent through the trach, patient FiO2 is at 50% no significant purulent secretion through the ET requiring low-dose pressor support. Patient white count 6.88 creatinine is 1.58 Objective - Vital Signs Vital signs: Vital Signs Temp 97.5 F L 09/21/24 08:00 Pulse 80 09/21/24 12:17 Resp 36 H 09/21/24 11:00 BP 116/59 09/21/24 11:00 Pulse Ox 96 09/21/24 11:00 FiO2 50 09/21/24 12:06 Intake & Output 09/20/24 09/21/24 09/21/24 18:59 06:59 18:59 Intake Total 2425.554 2568.941 718.627 Output Total 1560 740 15 Balance 555.875 5658.941 703.627 Weight 114.5 kg Intake: IV 1347 1146 440 0.9 120 110 50 Ceftolozane/Tazobactam 3 220 100 gm In Sodium Chloride 0.9 % 100 ml @ 100 mls/hr IV Q8HR ANNIE Rx#:[id number] Lasix gtt 80 Pressure Bag 27 36 15 TPN 900 900 375 Intake, IV Titration 294.104 8980.941 278.627 Amount Anidulafungin 100 mg In 100 100 Sodium Chloride 0.9% 100 ml @ 84 mls/hr IVPB DAILY ANNIE Rx#:[id number] Mvi, Adult No.4 with Vit 1051 K 10 ml Trace (Conc-1Ml/ Dose) 1 ml Sodium Acetate 70 meq Calcium Gluconate 0.5 gm In Amino Acids 5 %/Dextrose 20 % 1,000 ml @ 75 mls/hr IV .BY DURATION ANNIE Rx#: [id number] Norepinephrine 8 mg In 7.634 5.862 Sodium Chloride 0.9% 250 ml @ 0.03 MCG/KG/MIN 6. 513 mls/hr IV .Q24H ANNIE Rx#:[id number] propofoL 1,000 mg In 350.92 371.941 172.765 Empty Bag 1 bag @ 50 MCG/ KG/MIN 32.34 mls/hr IV . Q3H6M ANNIE Rx#:[id number] Blood Product 620 Rc As-1 Unit 310 [id number] Rc As-1 Unit 310 [id number] Output: Drainage 900 Medial Abdomen 900 Urine 60 40 15 Stool 600 700 Other: Voiding Method Indwelling Catheter Indwelling Catheter Indwelling Catheter ABP, PAP, CO, CI - Last Documented Arterial Blood Pressure 100/44 - Exam GENERAL DESCRIPTION: Middle-age male intubated on the vent RESPIRATORY SYSTEM: Unlabored breathing , decreased breath sounds at bases HEART: S1 S2 regular rate and rhythm , ABDOMEN: Soft , no tenderness EXTREMITIES: Swelling to the leg - Labs CBC & Chem 7: 09/22/24 05:40 09/22/24 05:40 Labs: Abnormal Lab Results - Last 24 Hours (Table) 09/17/24 09/20/24 09/20/24 Range/Units 05:28 17:40 18:11 RBC 2.60 L (4.40-5.60) 10*6/uL Hgb 7.2 L (13.0-17.0) g/dL Hct 22.4 L (39.6-50.0) % MCHC (32.0-37.0) g/dL Plt Count 104 L (140-440) 10*3/uL Lymphocytes # (0.90-5.00) 10*3/uL Eosinophils # (0.04-0.35) 10*3/uL Immature Plt Fraction 7.3 H (1.1-6.1) % Carbon Dioxide (22-30) mmol/L BUN (9-20) mg/dL Creatinine (0.66-1.25) mg/dL Glucose (74-99) mg/dL POC Glucose (mg/dL) 316 H (70-110) mg/dL Calcium (8.4-10.2) mg/dL Phosphorus (2.5-4.5) mg/dL Magnesium (1.6-2.3) mg/dL Crossmatch See Detail 09/20/24 09/21/24 09/21/24 Range/Units 23:40 05:15 05:15 RBC 2.81 L (4.40-5.60) 10*6/uL Hgb 7.6 L (13.0-17.0) g/dL Hct 24.3 L (39.6-50.0) % MCHC 31.3 L (32.0-37.0) g/dL Plt Count 115 L (140-440) 10*3/uL Lymphocytes # 0.78 L (0.90-5.00) 10*3/uL Eosinophils # 0.01 L (0.04-0.35) 10*3/uL Immature Plt Fraction (1.1-6.1) % Carbon Dioxide 18 L (22-30) mmol/L BUN 99 H (9-20) mg/dL Creatinine 1.58 H (0.66-1.25) mg/dL Glucose 228 H (74-99) mg/dL POC Glucose (mg/dL) 258 H (70-110) mg/dL Calcium 8.1 L (8.4-10.2) mg/dL Phosphorus 5.4 H (2.5-4.5) mg/dL Magnesium 2.5 H (1.6-2.3) mg/dL Crossmatch Assessment and Plan (1) Pneumonia Current Visit: Yes Status: Acute Code(s): J18.9 - PNEUMONIA, UNSPECIFIED ORGANISM SNOMED Code(s): 556491315 (2) Sepsis Current Visit: Yes Status: Acute Code(s): A41.9 - SEPSIS, UNSPECIFIED ORGANISM SNOMED Code(s): 83171592 (3) Candidemia Current Visit: Yes Status: Acute Code(s): B37.7 - CANDIDAL SEPSIS SNOMED Code(s): 134412778 Plan: 1patient is a hospital with sepsis in this patient who did have fever tachycardia elevated lactic acid upon meeting criteria for SIRS/sepsis source likely pneumonia 2-patient is status post bronchoscopy lavage results currently growing Pseudomonas that is resistant to Avycaz and corynebacterium, sensitivity on corynebacterium is pending 3-patient did have candidemia source is likely left chest wall PICC line which has been discontinued has been sent for the culture central line placed by storage receipt poster, blood culture repeat on 09/18/2024 positive blood culture repeat requested and the patient will continue with Eraxis 4patient with Pseudomonas pneumonia for the patient has completed his antibiotic therapy Dictation was produced using [employer] dictation software. please excuse any grammatical, word or spelling errors. Time with Patient: Less than 30
--- NOTE | 2024-10-08 15:17 | P.PN ---
Subjective Progress Note Date: 10/07/24 Principal diagnosis: Reason for follow-up is sepsis and pneumonia/candidemia Patient is a 49-year-old male with a past medical history significant for CVA TIA DVT pneumonia history of complicated Crohn's disease in this patient who did have multiple abdominal surgeries patient also have a tracheostomy has been brought to the hospital with Generalized weakness did have a fever concerning for pneumonia on today's evaluation that is 10/07/2024,the patient denies any fever or any chills, patient is breathing comfortably on trach collar and FiO2 is currently stable at 30% patient is off the pressor support no chest pain shortness of breath or cough. Patient white count is 9.23, creatinine is 2.20 Objective - Vital Signs Vital signs: Vital Signs Temp 97.8 F 10/07/24 08:19 Pulse 82 10/07/24 10:00 Resp 21 10/07/24 10:00 BP 123/76 10/07/24 10:00 Pulse Ox 95 10/07/24 10:00 FiO2 30 10/07/24 10:00 Intake & Output 10/06/24 10/07/24 10/07/24 18:59 06:59 18:59 Intake Total 5515.454 9358.971 1741.423 Output Total 15 630 1115 Balance 4472.542 3514.971 626.423 Weight 89.7 kg 91 kg Intake: IV 156 156 267 0.9 KVO 120 120 0 Pressure Bag 36 36 12 TPN 255 Intake, IV Titration 631.247 8095.971 1164.423 Amount Insulin Regular 100 unit 15.077 84.923 In Sodium Chloride 0.9% 100 ml @ Titrate IV .Q0M ANNIE Rx#:[id number] Mvi, Adult No.4 with Vit 1079.5 K 10 ml Trace (Conc-1Ml/ Dose) 1 ml Sodium Acetate 40 meq Sodium Chloride 4Meq/ml Vial 90 meq Calcium Gluconate 0.5 gm Potassium Chloride 30 meq Magnesium Sulfate gm 0.5 gm Sodium Phosphate 15 mmol In Amino Acids 5 %/ Dextrose 20 % 1,000 ml @ 85 mls/hr IV .BY DURATION ANNIE Rx#:[id number] Norepinephrine 8 mg In 136.737 13.569 Sodium Chloride 0.9% 250 ml @ 0.03 MCG/KG/MIN 6. 513 mls/hr IV .Q24H ANNIE Rx#:[id number] Sodium Acetate 40 meq 7.083 997.333 Sodium Chloride 4Meq/ml Vial 90 meq Calcium Gluconate 0.5 gm Potassium Chloride 30 meq Magnesium Sulfate gm 0.5 gm Sodium Phosphate 15 mmol In Amino Acids 5 %/ Dextrose 20 % 1,000 ml @ 85 mls/hr IV .BY DURATION ANNIE Rx#:[id number] propofoL 1,000 mg In 88.504 68.992 Empty Bag 1 bag @ 50 MCG/ KG/MIN 32.34 mls/hr IV . Q3H6M ANNIE Rx#:[id number] TPN/PPN 900 1020 TPN 900 1020 Blood Product 0 310 Rc As-1 Unit 0 310 [id number] Output: Urine 15 30 15 Stool 600 1100 Other: Voiding Method Indwelling Catheter Indwelling Catheter Indwelling Catheter ABP, PAP, CO, CI - Last Documented Arterial Blood Pressure 49/44 - Exam GENERAL DESCRIPTION: Middle-age male intubated on the vent RESPIRATORY SYSTEM: Unlabored breathing , decreased breath sounds at bases HEART: S1 S2 regular rate and rhythm , ABDOMEN: Soft , no tenderness EXTREMITIES: Swelling to the leg - Labs CBC & Chem 7: 10/08/24 03:18 10/08/24 03:18 Labs: Abnormal Lab Results - Last 24 Hours (Table) 10/06/24 10/06/24 10/06/24 Range/Units 11:53 16:45 23:10 RBC (4.40-5.60) 10*6/uL Hgb (13.0-17.0) g/dL Hct (39.6-50.0) % MCHC (32.0-37.0) g/dL ABG pH (7.35-7.45) ABG Total CO2 (19-24) mmol/L ABG O2 Saturation (94-97) % Hemoglobin (13.0-17.5) gm/dL Sodium (137-145) mmol/L Potassium (3.5-5.1) mmol/L Chloride (98-107) mmol/L BUN (9-20) mg/dL Creatinine (0.66-1.25) mg/dL Glucose (74-99) mg/dL POC Glucose (mg/dL) 331 H 484 H 582 H* (70-110) mg/dL Phosphorus (2.5-4.5) mg/dL Crossmatch 10/07/24 10/07/24 10/07/24 Range/Units 03:52 03:52 04:22 RBC 2.50 L (4.40-5.60) 10*6/uL Hgb 6.9 L* (13.0-17.0) g/dL Hct 22.8 L (39.6-50.0) % MCHC 30.3 L (32.0-37.0) g/dL ABG pH (7.35-7.45) ABG Total CO2 (19-24) mmol/L ABG O2 Saturation (94-97) % Hemoglobin (13.0-17.5) gm/dL Sodium 129 L (137-145) mmol/L Potassium 5.9 H (3.5-5.1) mmol/L Chloride 95 L (98-107) mmol/L BUN 72 H (9-20) mg/dL Creatinine 2.20 H (0.66-1.25) mg/dL Glucose 632 H* (74-99) mg/dL POC Glucose (mg/dL) (70-110) mg/dL Phosphorus 5.3 H (2.5-4.5) mg/dL Crossmatch See Detail 10/07/24 10/07/24 10/07/24 Range/Units 04:46 04:48 05:47 RBC (4.40-5.60) 10*6/uL Hgb (13.0-17.0) g/dL Hct (39.6-50.0) % MCHC (32.0-37.0) g/dL ABG pH 7.33 L (7.35-7.45) ABG Total CO2 25 H (19-24) mmol/L ABG O2 Saturation 98.2 H (94-97) % Hemoglobin 7.4 L (13.0-17.5) gm/dL Sodium (137-145) mmol/L Potassium (3.5-5.1) mmol/L Chloride (98-107) mmol/L BUN (9-20) mg/dL Creatinine (0.66-1.25) mg/dL Glucose (74-99) mg/dL POC Glucose (mg/dL) >600 H* >600 H* (70-110) mg/dL Phosphorus (2.5-4.5) mg/dL Crossmatch 10/07/24 10/07/24 10/07/24 Range/Units 06:52 08:02 09:05 RBC (4.40-5.60) 10*6/uL Hgb (13.0-17.0) g/dL Hct (39.6-50.0) % MCHC (32.0-37.0) g/dL ABG pH (7.35-7.45) ABG Total CO2 (19-24) mmol/L ABG O2 Saturation (94-97) % Hemoglobin (13.0-17.5) gm/dL Sodium (137-145) mmol/L Potassium (3.5-5.1) mmol/L Chloride (98-107) mmol/L BUN (9-20) mg/dL Creatinine (0.66-1.25) mg/dL Glucose (74-99) mg/dL POC Glucose (mg/dL) >600 H* 539 H* 501 H* (70-110) mg/dL Phosphorus (2.5-4.5) mg/dL Crossmatch 10/07/24 10/07/24 Range/Units 10:00 11:06 RBC (4.40-5.60) 10*6/uL Hgb (13.0-17.0) g/dL Hct (39.6-50.0) % MCHC (32.0-37.0) g/dL ABG pH (7.35-7.45) ABG Total CO2 (19-24) mmol/L ABG O2 Saturation (94-97) % Hemoglobin (13.0-17.5) gm/dL Sodium (137-145) mmol/L Potassium (3.5-5.1) mmol/L Chloride (98-107) mmol/L BUN (9-20) mg/dL Creatinine (0.66-1.25) mg/dL Glucose (74-99) mg/dL POC Glucose (mg/dL) 389 H 294 H (70-110) mg/dL Phosphorus (2.5-4.5) mg/dL Crossmatch Microbiology - Last 24 Hours (Table) 10/05/24 10:29 Blood Culture - Preliminary Blood Assessment and Plan (1) Pneumonia Current Visit: Yes Status: Acute Code(s): J18.9 - PNEUMONIA, UNSPECIFIED ORGANISM SNOMED Code(s): 460156786 (2) Sepsis Current Visit: Yes Status: Acute Code(s): A41.9 - SEPSIS, UNSPECIFIED ORGANISM SNOMED Code(s): 71863834 (3) Candidemia Current Visit: Yes Status: Acute Code(s): B37.7 - CANDIDAL SEPSIS SNOMED Code(s): 977910779 Plan: 1[facility] patient who did have fever tachycardia elevated lactic acid upon meeting criteria for SIRS/sepsis source likely pneumonia,patient is status post bronchoscopy lavage results currently growing Pseudomonas that is resistant to Avycaz and corynebacterium, which was vancomycin and Zyvox sensitive, patient completed antibiotic therapy for his pneumonia 2patient did have candidemia source is likely left chest wall PICC line which has been discontinued has been sent for the culture central line placed by medical office manager, blood culture repeat on 09/18/2024 positive blood culture repeat 09/22/2024 so far negative. Subsequently patient did continue PICC line and the chest wall catheter was discontinued as repeat blood culture from 09/22/2024 remained to be negative 3patient has completed his course of Eraxis which was discontinued after 10/06/2024 dose and will be monitored closely off antibiotic/antifungal therapy Dictation was produced using [email or web address] dictation software. please excuse any grammatical, word or spelling errors.
--- NOTE | 2024-10-08 15:18 | P.PN ---
Subjective Progress Note Date: 10/08/24 Principal diagnosis: Reason for follow-up is sepsis and pneumonia/candidemia Patient is a 49-year-old male with a past medical history significant for CVA TIA DVT pneumonia history of complicated Crohn's disease in this patient who did have multiple abdominal surgeries patient also have a tracheostomy has been brought to the hospital with Generalized weakness did have a fever concerning for pneumonia on today's evaluation that is 10/08/2024,the patient remains to be afebrile, patient is on trach at 30% FiO2 breathing comfortably hemodynamic stable not requiring pressor support no chest pain shortness of breath or cough. The patient white count 7.01, creatinine 1.48 blood culture from 10/05/2024 so far negative Objective - Vital Signs Vital signs: Vital Signs Temp 98.4 F 10/08/24 12:00 Pulse 92 10/08/24 15:00 Resp 25 H 10/08/24 15:00 BP 150/70 10/08/24 15:00 Pulse Ox 98 10/08/24 15:00 FiO2 30 10/08/24 12:00 Intake & Output 10/07/24 10/08/24 10/08/24 18:59 06:59 18:59 Intake Total 3340.696 2148.999 801.964 Output Total 7011 310 510 Balance -3670.304 1838.999 291.964 Weight 90.9 kg 90.9 kg Intake: IV 1059 968 765 0.9 KVO 0 Pressure Bag 39 33 TPN 1020 935 765 Intake, IV Titration 1689.795 5054.999 36.964 Amount Insulin Regular 100 unit 318.137 113.999 36.964 In Sodium Chloride 0.9% 100 ml @ Titrate IV .Q0M ANNIE Rx#:[id number] Mvi, Adult No.4 with Vit 1079.5 K 10 ml Trace (Conc-1Ml/ Dose) 1 ml Sodium Acetate 40 meq Sodium Chloride 4Meq/ml Vial 90 meq Calcium Gluconate 0.5 gm Potassium Chloride 30 meq Magnesium Sulfate gm 0.5 gm Sodium Phosphate 15 mmol In Amino Acids 5 %/ Dextrose 20 % 1,000 ml @ 85 mls/hr IV .BY DURATION ANNIE Rx#:[id number] Mvi, Adult No.4 with Vit 1067 K 10 ml Trace (Conc-1Ml/ Dose) 1 ml Sodium Acetate 50 meq Sodium Chloride 4Meq/ml Vial 100 meq Calcium Gluconate 0.5 gm Magnesium Sulfate gm 0.5 gm In Amino Acids 5 %/ Dextrose 20 % 1,000 ml @ 85 mls/hr IV .BY DURATION [facility] Rx#:[id number] propofoL 1,000 mg In 74.059 Empty Bag 1 bag @ 50 MCG/ KG/MIN 32.34 mls/hr IV . Q3H6M ANNIE Rx#:[id number] Blood Product 310 Rc As-1 Unit 310 [id number] Hemodialysis 500 Output: Urine 11 10 10 Stool 1100 300 500 Hemodialysis 3200 Hemodialysis Net Amount 2700 Other: Voiding Method Indwelling Catheter Indwelling Catheter Indwelling Catheter ABP, PAP, CO, CI - Last Documented Arterial Blood Pressure - Exam GENERAL DESCRIPTION: Middle-age male intubated on the vent RESPIRATORY SYSTEM: Unlabored breathing , decreased breath sounds at bases HEART: S1 S2 regular rate and rhythm , ABDOMEN: Soft , no tenderness EXTREMITIES: Swelling to the leg - Labs CBC & Chem 7: 10/08/24 03:18 10/08/24 03:18 Labs: Abnormal Lab Results - Last 24 Hours (Table) 10/07/24 10/07/24 10/07/24 Range/Units 15:57 16:55 18:00 RBC (4.40-5.60) 10*6/uL Hgb (13.0-17.0) g/dL Hct (39.6-50.0) % MCHC (32.0-37.0) g/dL Sodium (137-145) mmol/L Chloride (98-107) mmol/L BUN (9-20) mg/dL Creatinine (0.66-1.25) mg/dL Glucose (74-99) mg/dL POC Glucose (mg/dL) 290 H 267 H 250 H (70-110) mg/dL 10/07/24 10/07/24 10/07/24 Range/Units 18:38 20:05 21:04 RBC (4.40-5.60) 10*6/uL Hgb (13.0-17.0) g/dL Hct (39.6-50.0) % MCHC (32.0-37.0) g/dL Sodium (137-145) mmol/L Chloride (98-107) mmol/L BUN (9-20) mg/dL Creatinine (0.66-1.25) mg/dL Glucose (74-99) mg/dL POC Glucose (mg/dL) 249 H 206 H 175 H (70-110) mg/dL 10/07/24 10/07/24 10/08/24 Range/Units 22:03 23:00 00:10 RBC (4.40-5.60) 10*6/uL Hgb (13.0-17.0) g/dL Hct (39.6-50.0) % MCHC (32.0-37.0) g/dL Sodium (137-145) mmol/L Chloride (98-107) mmol/L BUN (9-20) mg/dL Creatinine (0.66-1.25) mg/dL Glucose (74-99) mg/dL POC Glucose (mg/dL) 137 H 140 H 163 H (70-110) mg/dL 10/08/24 10/08/24 10/08/24 Range/Units 02:05 03:01 03:18 RBC (4.40-5.60) 10*6/uL Hgb (13.0-17.0) g/dL Hct (39.6-50.0) % MCHC (32.0-37.0) g/dL Sodium 133 L (137-145) mmol/L Chloride 96 L (98-107) mmol/L BUN 51 H (9-20) mg/dL Creatinine 1.48 H (0.66-1.25) mg/dL Glucose 234 H (74-99) mg/dL POC Glucose (mg/dL) 231 H 248 H (70-110) mg/dL 10/08/24 10/08/24 10/08/24 Range/Units 03:18 04:04 05:08 RBC 2.95 L (4.40-5.60) 10*6/uL Hgb 8.2 L (13.0-17.0) g/dL Hct 26.4 L (39.6-50.0) % MCHC 31.1 L (32.0-37.0) g/dL Sodium (137-145) mmol/L Chloride (98-107) mmol/L BUN (9-20) mg/dL Creatinine (0.66-1.25) mg/dL Glucose (74-99) mg/dL POC Glucose (mg/dL) 238 H 233 H (70-110) mg/dL 10/08/24 10/08/24 10/08/24 Range/Units 06:03 07:01 08:05 RBC (4.40-5.60) 10*6/uL Hgb (13.0-17.0) g/dL Hct (39.6-50.0) % MCHC (32.0-37.0) g/dL Sodium (137-145) mmol/L Chloride (98-107) mmol/L BUN (9-20) mg/dL Creatinine (0.66-1.25) mg/dL Glucose (74-99) mg/dL POC Glucose (mg/dL) 187 H 173 H 133 H (70-110) mg/dL 10/08/24 10/08/24 Range/Units 09:07 12:51 RBC (4.40-5.60) 10*6/uL Hgb (13.0-17.0) g/dL Hct (39.6-50.0) % MCHC (32.0-37.0) g/dL Sodium (137-145) mmol/L Chloride (98-107) mmol/L BUN (9-20) mg/dL Creatinine (0.66-1.25) mg/dL Glucose (74-99) mg/dL POC Glucose (mg/dL) 123 H 237 H (70-110) mg/dL Microbiology - Last 24 Hours (Table) 10/05/24 10:29 Blood Culture - Preliminary Blood Assessment and Plan (1) Pneumonia Current Visit: Yes Status: Acute Code(s): J18.9 - PNEUMONIA, UNSPECIFIED ORGANISM SNOMED Code(s): 161759955 (2) Sepsis Current Visit: Yes Status: Acute Code(s): A41.9 - SEPSIS, UNSPECIFIED ORGANISM SNOMED Code(s): 42727434 (3) Candidemia Current Visit: Yes Status: Acute Code(s): B37.7 - CANDIDAL SEPSIS SNOMED Code(s): 297671742 Plan: 1patient is a hospital with sepsis in this patient who did have fever tachycardia elevated lactic acid upon meeting criteria for SIRS/sepsis source likely pneumonia,patient is status post bronchoscopy lavage results currently growing Pseudomonas that is resistant to Avycaz and corynebacterium, which was vancomycin and Zyvox sensitive, patient completed antibiotic therapy for his pneumonia 2patient did have candidemia source is likely left chest wall PICC line which has been discontinued has been sent for the culture central line placed by arabic translator, blood culture repeat on 09/18/2024 positive blood culture repeat 09/22/2024 so far negative. Subsequently patient did continue PICC line and the chest wall catheter was discontinued as repeat blood culture from 09/22/2024 remained to be negative 3patient has completed his course of Eraxis which was discontinued after 10/06/2024 dose, currently seem to be doing well off antibiotic/antifungal remains to be afebrile white count has been normal we will monitor closely off antibiotics Dictation was produced using [employer] dictation software. please excuse any grammatical, word or spelling errors.
[2024-10-08 18:14] LABS: Glucose,Whole Blood 254 mg/dL (70-110)
[2024-10-08] MEDS: HYDROCORTISONE SUCCINATE 100 MG/2 ML VIAL IV SCH (21:12)
--- NOTE | 2024-10-08 21:40 | P.PN ---
Subjective Progress Note Date: 10/08/24 Chief Complaint: Short of breath 49-year-old patient, follows with Dr. Murcia History of paraplegia, home vent at night, tracheostomy multiple admissions to the ICU for recurrent pneumonia. Patient's previous bronchial cultures been positive for Pseudomonas. He was discharged recently on IV cefepime. Also has a history of Crohn's disease with previous colectomy diverting ileostomy. History of DVT for which patient is on subcu Lovenox. Also had drug-resistant MRSA Pseudomonas. Patient currently does not have areas significant trach secretions. He has continues TPN. Has a right BKA. He does have slight movement in the right hand. Able to follow commands by nodding his head. Answering questions. He is scared by his elder son open. I was also the DPOA. August 30: Overnight patient started having more secretions through the tracheostomy. Vancomycin was added. Also blood pressure running low patient was put on Levophed drip. Otherwise sinus rhythm. Patient remains on the ventilator. Will also send off stool for C. difficile. Also patient IV cefepime. Getting TPN. August 31: ICU. Patient had positive fluid balance. Was given IV Lasix earlier. Remains on Levophed. Spiking fevers. Getting TPN. Stool negative for C. difficile. Patient is growing MDRO Pseudomonas aeruginosa. ID is ordered IV Zerbaxa. Which is currently not available. Patient's friend is visiting him in the ICU. Light trach secretion September 01: ICU. On the ventilator. FiO2 45%. PEEP of 5. Continues to have light trach secretions. Sputum cultures again growing Pseudomonas. Zerbaxa was obtained and resumed. Blood pressure running low. On Levophed. Patient's younger son at the bedside. Colostomy working fine. Has been spiking fevers. Cooling blanket. Ice packs. September 02: ICU. Ventilator FiO2 45%. PEEP of 5. Continues to have some trach secretions. IV Zerbaxa IV tobramycin. TPN lipids to continue. Also Levophed. Patient started cooling blankets since yesterday for temperatures. Along with the nurse speech therapy records were reviewed from last few admissions. Patient with multiple MBS and bedside swallow eval. No trouble with swallowing. Patient put on a chopped diet. Thin liquids. Patient did spike a fever of 101.7 earlier today. Low ionized calcium. IV gluconate given. September 03: ICU. On ventilator FiO2 45%. PEEP of 5. Mild trach secretions. Getting IV TPN lipids. IV tobramycin. Zerbaxa was substituted to Avycaz. By ID. No fever per se since yesterday. For blood pressure patient is also on Levophed and vasopressin. September 04: ICU. On ventilator FiO2 45%. PEEP of 5. Clear trach secretions. Getting IV TPN lipids. IV tobramycin. And IV Avycaz. Remains afebrile.. On Levophed and vasopressin. Awake. 09/06/2024 Patient is seen and evaluated in ICU; remains on mechanical ventilator, actually his home ventilator, with settings of volume assist-control, rate 20, tidal volume 450, FiO2 45%, PEEP of 5. - patient has been refusing blood; no ABGs to. He is getting lactated Ringer's at 50 cc an hour, TPN at 65 cc an hour. - patient remains on the same antibiotics. - Labs reviewed which reveal white count 5.21, hemoglobin 7.9, hematocrit 27.5, and platelet count 64,000. Sodium 141, potassium 3.5, chlorides 102, CO2 32, BUN 25, and creatinine 0.35. Glucose is 152. Calcium is 8. Albumin is 2.1. -Chest x-ray is largely unchanged. Critical care managing mechanical ventilation; recommending to add scopolamine patch for increased secretion -Patient remains on Avycaz and tobramycin - Continue with current TPN 09/07 Patient remains in the ICU lethargic. He is s/p tracheostomy Overnight he was more hypoxic they have to increase PEEP to 8. Also has a lot of secretions when needed for secretions suctioning to try to become apneic per Staff. Patient currently receiving Avycaz and tobramycin. on TPN also 09/08 Patient remains in the ICU awake and alert status post tracheostomy. He has contractures of both upper and lower extremities He is complaining from pain in his lungs. He is status post flexible bronchoscopy and bronchoalveolar lavage yesterday. He has previous sputum culture positive for Pseudomonas currently covered with ceftazidime and tobramycin. He is also on Lovenox 90 mg 09/09 Patient still in the ICU on mechanical ventilation via tracheostomy. PEEP is 8.0 as is yesterday Also he spiked little fever to 100.7. IV vancomycin is added to tobramycin and ceftazidime He is getting also bronchoscopy follow-up culture results 09/10 Patient feels clinically the same, he still getting breathing via mechanical ventilation through his tracheostomy with PEEP of 8. Patient feels he is required suctioning through his tracheostomy tube. He denies chest pain or pain anywhere else he can communicate by head signs and gestures. Hemodynamically stable and afebrile hemoglobin 7.4 platelet count 73 Glucose is controlled potassium 3.3 He remains on broad-spectrum antibiotic Rocephin at this time tobramycin and IV vancomycin added yesterday because he had low-grade fever. He is getting TPN. IV fluid Ringer lactate was stopped and patient was started on IV Lasix 20 mg 3 times a day continue with therapeutic dose of Lovenox as well 09/11 Patient remains in the ICU Remains on mechanical ventilation via tracheostomy He status post bronchoalveolar lavage 2 days ago, culture is growing Pseudomonas aeruginosa and corynebacterium Patient remains on broad-spectrum antibiotics with IV vancomycin, tobramycin, ceftazidime On IV Lasix also is on therapeutic dose of Lovenox 90 mg twice daily No IV fluids 09/12 Patient remains in the ICU Clinically close to what he was over the last 2 days still getting oxygen via his tracheostomy He remains on broad-spectrum antibiotic with Ceftin this time and IV vancomycin. Also he is on IV Lasix 20 mg and therapeutic dose of Lovenox. 09/13 Patient remains in the ICU on mechanical ventilation via tracheostomy Patient looks better today, he breathing better Less secretion Fentanyl patch increased 09/14. Patient seen and examined. Patient continues to be on mechanical ventilation via trach mask. Currently on TPN. Currently on IV Zerbaxa and vancomycin 09/15. Patient seen and examined.Vital signs done showed the patient overnight, heart rate 106, blood pressure 107/40, currently on ventilation. Labs reviewed showed WBC 7.27, hemoglobin 7.5, sodium 148 on potassium 4.3, BUN 23, creatinine 0.47 09/16. Patient seen and examined labs reviewed showing WBC 5.45, hemoglobin 9.6, platelet count 131, sodium 146, potassium 4.1, BUN 20, creatinine 0.47. Continue small amount of Levophed. Currently on Zerbaxa and vancomycin. Currently on TPN September 17: ICU. Patient has taken a turn for the worse today. Significant thick white secretions from the trach. Sinus rhythm. Receiving TPN. Patient is on Levophed and vasopressor. Rather high dose. FiO2 [address] of 10[address] Ho earlier spoke to the patient/family. Remains full code September 18: ICU. Intubated FiO2 70 PEEP of 12. Sinus rhythm. Drips include IV propofol at 50 and Levophed at 0.13. Patient is off vasopressin. Patient secretions. Family at the bedside. September 19: ICU. Intubated. FiO2 50 and a PEEP of 12. Drips include IV Levophed and propofol. Also started on Lasix drip 10 mg an hour yesterday. Secretions present. September 20: ICU. Intubated. FiO2 50 and a PEEP of 12. Hemoglobin 6.3. Secondary to blood being given. Patient been on and off Levophed. On propofol. Lipids have been held. Continues with TPN. Lasix drip was discontinued. Lovenox has been held because of low hemoglobin. Unable anemia is felt to be combination of regular blood draws and possible element element of hemolysis from all the infection. No dark stool. Family at the bedside September 21: ICU. Intubated. Received 2 units of blood yesterday. Hemoglobin 7.6 today. Per nephrology renal replacement therapy. Dialysis access placed by Dr. Cadena. Patient earlier today on Levophed. Propofol. Getting TPN. Sinus rhythm. Urine output decreased September 22: ICU. Intubated. FiO2 15 of PEEP of 12. Seen earlier today. Dialysis being started. Been on IV Levophed propofol. Sinus rhythm. TPN. Sinus rhythm. September 23: ICU. Intubated. Due for another dialysis today. Saw the patient earlier today. Remains on IV Levophed propofol. Sinus rhythm. TPN. On fentanyl patch. September 24: ICU. Intubated. FiO2 40 and PEEP of 12. Remains on IV Levophed and propofol. IV TPN. Decrease trach secretions. IV antibiotics. Was due for dialysis earlier today. September 25: ICU. Intubated. FiO2 30%. Patient getting IV Levophed and propofol. IV TPN. Dialysis today. Receiving IV antibiotics. Does opens eyes occasionally. Some commands per nursing. September 26: ICU. Intubated. FiO2 30 and a PEEP of 8. Had 2 L hemodialysis removed yesterday. Getting hemodialysis today. Aiming for 2 to 3 L. Patient is on propofol. Currently Levophed on hold. Getting TPN. Patient is actually awake and following commands. Sinus rhythm. September 27: ICU. Intubated. FiO2 39 PEEP of 8. No dialysis today. Remains on IV Levophed propofol. TPN. There is a bedside. Patient asked me how is he doing. Had a lengthy information in terms of his guarded prognosis. Did tell him it is his choice about how he wishes to proceed. He needs to decide between treatment benefits versus in the suffering because of that entails from treatment and his recurrent infections etc. Especially in the context of decreased activity. Kidney failure, respiratory failure etc. September 28: ICU. Intubated. FiO2 30 and a PEEP of 8. For dialysis today. Off Levophed this morning. IV propofol. TPN. Some clear light to trach secret ions. Colostomy working. Poor urine output. September 29: ICU. Intubated. IV propofol Levophed. TPN. Awake. Discussed with Dr. Holt. Prognosis very poor. Probably treatment is the point of getting futile. Patient needs about 34 more days to go to long-term ventilator setting. September 30: ICU. Intubated. IV propofol. Currently off Levophed. TPN. Getting dialysis today. Awake. IV antifungal. Given a unit of blood for hemoglobin of 6.9 October 01: ICU. Intubated. IV propofol. Remains on Levophed. TPN dose adjusted. Dialysis. IV aniedulefungin. Eyes open. Vent. FiO2 30%. PEEP 5 September 18: ICU. Intubated. IV propofol. Off Levophed. TPN. Dialysis today. IV aniedulefungin last day on October 06. Per ID. Some trach secretions clear October 03: ICU. Intubated. IV propofol. TPN. Dialysis schedule will now be Saturday. Next dialysis will be on coming Saturday. IV aniedulefungin last day-I October 06. Minimal urine output-5 to 10 cc an hour. Awake. October 04: ICU. Intubated. IV propofol. TPN. Next dialysis on Saturday. IV elevated Lida function. Urine output remains to be minimal. Awake. Mother at the bedside. Does not have any questions. Sinus rhythm. 10/05/2024 Patient seen in follow-up today remains in the ICU on mechanical ventilation FiO2 is 30%. Patient is requiring some small dose Levophed as blood pressures were low maintained on hemodialysis. Multiple consultations following including infectious disease the patient is maintained on Eraxis which will be completed after October 06, 2024. Patient is continued on TPN and will continue. Prognosis remains poor and guarded at this time. 10/06/2024 Patient seen and evaluated in follow-up today with no significant changes other than blood sugars are becoming more elevated likely secondary to Cortef be resumed. Will add long-acting insulin and continue with sliding scale. Would recommend ACHS as well as at 2 AM as needed. Patient is afebrile continued on mechanical ventilation and will be completing Eraxis today. 10/07/2024 Patient seen in follow-up today continues on mechanical ventilation with an FiO2 of 30%, currently awake following commands and is maintained on low-dose propofol. Blood sugars extremely elevated above 500 and had started long-acting although no improvement, likely secondary to Solu-Cortef and is placed on insulin drip. Will adjust accordingly and titrate and attempt to wean as tolerated. Patient has completed Eraxis with infectious disease following closely. Hemoglobin was also noted to be low at 6.9 today and being transfused 1 unit and will follow-up on repeat labs this afternoon. Patient is scheduled to receive hemodialysis today. Patient is requesting if he can eat although is maintained on TPN and now with blood sugars of 500, no plans for resuming a diet as of today. 10/08/2024 Patient is seen in follow-up today is being closely monitored off antibiotic therapy and has completed Eraxis with infectious disease following closely. Patient is maintained on TPN along with Solu-Cortef and blood sugars were elevated requiring insulin drip as blood sugars were also noted to be over 500 yesterday. Blood sugars improved being started on long-acting along with sliding scale and insulin drip discontinued. Cortef also being adjusted per pulmonary button reclaimer. Patient continues on mechanical ventilation is awake and alert. FiO2 is 30%. Hemoglobin is improved status post 1 unit PRBC and is 8.2 today. Sodium improved at 133 with a potassium of 4.3, BUN is 51 and creatinine is 1.48. Case management/social work is following and awaiting until new insurance becomes effective next month and looking into possible ECF versus LT AC. Patient does have significant complex comorbidities and extremely guarded prognosis, would benefit from LTAC. Patient is afebrile and most recent blood cultures remain negative. Review of systems: Constitutional: No reports of fatigue, fever, or chills Cardiovascular: No reports of chest pain or palpitations Respiratory: No reports of shortness of breath or cough GI: No reports of nausea, vomiting, or diarrhea, reports wanting to eat : No reports of dysuria or retention Neurovascular: reports of weakness or numbness All medications have been reviewed Active Medications Albuterol/Ipratropium (Ipratropium-Albuterol 3 Ml Neb) 3 ml INHALATION RT-Q4H PRN PRN Reason: shortness of breath Last Admin: 10/08/24 15:30 Dose: 3 ml Artificial Tears (Artificial Tears-Hypromellose Drops 15 Ml Btl) 1 drops BOTH EYES QID PRN PRN Reason: Dry Eye(s) Last Admin: 09/04/24 12:52 Dose: 1 drops Chlorhexidine Gluconate (Chlorhexidine Gluconate 15 Ml Cup) 15 ml MUCOUS MEM BID ANNIE Last Admin: 10/08/24 21:12 Dose: 15 ml Darbepoetin Andry (Darbepoetin Andry 40 Mcg/0.4 Ml Syringe) 40 mcg SQ Q7D ANNIE Last Admin: 10/08/24 11:38 Dose: 40 mcg Dextrose/Water (Dextrose 50% Syringe 50 Ml) 25 ml IVP PER PROTOCOL PRN; Protocol PRN Reason: Hypoglycemia Dextrose/Water (Dextrose 50% Syringe 50 Ml) 50 ml IVP PER PROTOCOL PRN; Protocol PRN Reason: Hypoglycemia Fentanyl (Fentanyl 100mcg/Hr Patch) 1 patch TRANSDERM Q72H ANNIE; Protocol Last Admin: 10/07/24 08:18 Dose: 1 patch Heparin Sodium (Porcine) (Heparin Sodium,Porcine 5,000 Unit/Ml 1 Ml Vial) 5,000 unit SQ Q8HR ANNIE Last Admin: 10/08/24 16:53 Dose: 5,000 unit Hydrocortisone Sodium Succinate (Hydrocortisone Succinate 100 Mg/2 Ml Vial) 25 mg IV Q12HR ANNIE Last Admin: 10/08/24 21:12 Dose: 25 mg Hydromorphone HCl (Hydromorphone 1 Mg/Ml 1 Ml Syringe) 1 mg IVP Q3HR PRN PRN Reason: Moderate Pain (Scale 4 to 6) Last Admin: 10/08/24 21:35 Dose: 1 mg Sodium Acetate 50 meq/ Sodium Chloride 100 meq/ Calcium Gluconate 0.5 gm/ Magnesium Sulfate 0.5 gm/ Amino Acids/Dextrose 1,056 mls @ 85 mls/hr IV .BY DURATION [facility] Last Admin: 10/08/24 02:09 Dose: 85 mls/hr Parenteral Vitamin Supplement 10 ml/ Zinc/Copper/Manganese/Selenium 1 ml/ Sodium Acetate 50 meq/ Sodium Chloride 100 meq/ Calcium Gluconate 0.5 gm/Magnesium Sulfate 0.5 gm/Amino Acids/Dextrose 1,067 mls @ 85 mls/hr IV .BY DURATION [facility] Last Admin: 10/08/24 12:40 Dose: 85 mls/hr Fat Emulsion Intravenous 250 (ml/ IV Solution) 250 mls @ 21 mls/hr IV Q72H [facility] Last Admin: 10/08/24 14:27 Dose: 21 mls/hr Insulin Glargine (Insulin Glargine (Lantus) 100 Unit/Ml Syr) 20 unit SQ DAILY@0700 [facility] Last Admin: 10/08/24 09:53 Dose: 20 unit Insulin Human Lispro (Insulin Lispro (Humalog) 100 Unit/Ml 10 Ml Vl) 0 unit SQ Q6H [facility]; Protocol Last Admin: 10/08/24 18:14 Dose: 6 unit Lorazepam (Lorazepam 1 Mg/0.5 Ml Vial) 0.5 mg IV Q6HR PRN PRN Reason: Anxiety Last Admin: 09/15/24 18:26 Dose: 0.5 mg Miscellaneous Information (Potassium Replacement Protocol 1 Each Misc) 1 each MISCELLANE DAILY PRN; Protocol PRN Reason: Per Protocol Miscellaneous Information (Magnesium Replacement Protocol 1 Each Misc) 1 each MISCELLANE DAILY PRN; Protocol PRN Reason: Per Protocol Naloxone HCl (Naloxone 0.4 Mg/Ml 1 Ml Vial) 0.2 mg IV Q2M PRN PRN Reason: Opioid Reversal Ondansetron HCl (Ondansetron 4 Mg/2 Ml Vial) 4 mg IVP Q6HR PRN PRN Reason: Nausea And Vomiting Last Admin: 09/01/24 19:41 Dose: 4 mg Pantoprazole Sodium (Pantoprazole 40 Mg/10 Ml Vial) 40 mg IV DAILY [facility] Last Admin: 10/08/24 08:30 Dose: 40 mg Petrolatum (Zinc Oxide Paste (Z-Guard) 1 Applic) 1 applic TOPICAL BID PRN; Protocol PRN Reason: Wound Healing History Physical examination: GENERAL:, 49-year-old male who is awake, alert and oriented x 3, following commands continued on mechanical ventilation via tracheostomy with an FiO2 of 30% EYES: Pupils equal. Conjunctiva normal HEENT: External appearance of nose and ears normal, oral cavity dry NECK: JVD unable to assess; masses not palpable. Tracheostomy HEART: First and second heart sounds are normal; no edema. LUNGS: decreased breath sounds bilaterally, some crackles ABDOMEN: Soft, nontender, liver spleen not palpable, no masses palpable. Double barrel ostomy. PSYCH: Following simple commands MUSCULOSKELETAL: Right BKA. Left foot drop. Left hand contracture. Right hand also with contracture but able to have some movements NEUROLOGICAL: Cranial nerves grossly intact; no facial asymmetry, slight movement in the right arm. Assessment plan: - Basilar pneumonia. Previous admission sputum was positive for Pseudomonas aeruginosa - Candidemia l secondary to left chest wall PICC line that has been discontinued. And repeat blood cultures on September 22 negative. Line changes are being followed by ID IV Eraxis-patient has completed Eraxis - Fluid overload Had received Lasix drip - Acute kidney injury from ATN from septic shock. And possibly vancomycin to[place] city. Oliguric. Volume overload. First dialysis was on September 22.-Has been getting dialysis nearly daily. From now on dialysis schedule be Saturday - Metabolic alkalosis, improved - Septic shock: Levophed has been on and off, blood pressures softer today requiring low-dose Levophed - Acute on chronic hypoxic and hypercapnic respiratory failure, vent dependent at night at home: On ventilator support. Propofol - Tracheostomy with trach collar -Acute normocytic anemia of chronic disease and hospital-acquired anemia from blood draws and possible hemolysis from infection Has received 7 units of blood - Thrombocytopenia likely from sepsis: Corrected - Right below-knee amputation history - Chronic quadriparesis. Including left foot drop. Left arm contracture. Some right hand contracture. Some movement in the right arm - Crohn's disease with double barrel ostomy bag in place since 09/2021 - TPN and lipids Lipids have been held during propofol - Hyperglycemia, likely secondary to Solu-Cortef as well as TPN, started on insulin drip 10/07/2024 - Full code - DPOA, haylee PENA Plan: Patient remains in the ICU on mechanical ventilation with an FiO2 of 30% via tracheostomy Continued per propofol along with Dilaudid Patient has completed Eraxis 10/06/2024 per ID recommendations being closely monitored off antibiotic therapy Continue current supportive care Blood sugars are elevated and uncontrolled likely secondary to Solu-Cortef being resumed, patient was on insulin drip and will wean as tolerated and be transition to long-acting along with sliding scale, Solu-Cortef reduced as well Recommend follow-up labs in the a.m. including CBC and CMP. Replace electrolytes per protocol. Transfuse if 7 or less on hemoglobin. No active bleeding noted Case management/social work following and awaiting new insurance to become effective regarding discharge planning which will require LTAC versus ECF Overall prognosis is extremely poor and per family and patient, CODE STATUS remains full code The impression and plan of care has been dictated by Alyssa Hernandez, Nurse Practitioner as directed. Dr. Gerry MD I have performed a history and examination and MDM of this patient, discussed the same with the dictator, and agree with the dictator's assessment and plan as written ,documented as a scribe. Based on total visit time, I have performed more than 50% of the visit. Objective - Vital Signs Vital signs: Vital Signs Temp 98.3 F 10/08/24 16:00 Pulse 102 H 10/08/24 19:00 Resp 30 H 10/08/24 19:00 BP 151/68 10/08/24 19:00 Pulse Ox 98 10/08/24 19:00 FiO2 30 10/08/24 19:52 Intake & Output 10/08/24 10/08/24 10/09/24 06:59 18:59 06:59 Intake Total 2148.999 1391.964 Output Total 310 530 Balance 1838.999 861.964 Weight 90.9 kg 90.9 kg Intake: IV 968 1105 Pressure Bag 33 TPN 935 1105 Intake, IV Titration 1180.999 286.964 Amount Fat Emulsion 20% 250 ml 250 In Empty Bag 1 bag @ 21 mls/hr IV Q72H [facility] Rx#: [id number] Insulin Regular 100 unit 113.999 36.964 In Sodium Chloride 0.9% 100 ml @ Titrate IV .Q0M [facility] Rx#:[id number] Mvi, Adult No.4 with Vit 1067 K 10 ml Trace (Conc-1Ml/ Dose) 1 ml Sodium Acetate 50 meq Sodium Chloride 4Meq/ml Vial 100 meq Calcium Gluconate 0.5 gm Magnesium Sulfate gm 0.5 gm In Amino Acids 5 %/ Dextrose 20 % 1,000 ml @ 85 mls/hr IV .BY DURATION [facility] Rx#:[id number] Output: Urine 10 30 Stool 300 500 Other: Voiding Method Indwelling Catheter Indwelling Catheter ABP, PAP, CO, CI - Last Documented Arterial Blood Pressure - Labs CBC & Chem 7: 10/08/24 03:18 10/08/24 03:18 Labs: Abnormal Lab Results - Last 24 Hours (Table) 10/07/24 10/07/24 10/08/24 Range/Units 22:03 23:00 00:10 RBC (4.40-5.60) 10*6/uL Hgb (13.0-17.0) g/dL Hct (39.6-50.0) % MCHC (32.0-37.0) g/dL Sodium (137-145) mmol/L Chloride (98-107) mmol/L BUN (9-20) mg/dL Creatinine (0.66-1.25) mg/dL Glucose (74-99) mg/dL POC Glucose (mg/dL) 137 H 140 H 163 H (70-110) mg/dL 10/08/24 10/08/24 10/08/24 Range/Units 02:05 03:01 03:18 RBC (4.40-5.60) 10*6/uL Hgb (13.0-17.0) g/dL Hct (39.6-50.0) % MCHC (32.0-37.0) g/dL Sodium 133 L (137-145) mmol/L Chloride 96 L (98-107) mmol/L BUN 51 H (9-20) mg/dL Creatinine 1.48 H (0.66-1.25) mg/dL Glucose 234 H (74-99) mg/dL POC Glucose (mg/dL) 231 H 248 H (70-110) mg/dL 10/08/24 10/08/24 10/08/24 Range/Units 03:18 04:04 05:08 RBC 2.95 L (4.40-5.60) 10*6/uL Hgb 8.2 L (13.0-17.0) g/dL Hct 26.4 L (39.6-50.0) % MCHC 31.1 L (32.0-37.0) g/dL Sodium (137-145) mmol/L Chloride (98-107) mmol/L BUN (9-20) mg/dL Creatinine (0.66-1.25) mg/dL Glucose (74-99) mg/dL POC Glucose (mg/dL) 238 H 233 H (70-110) mg/dL 10/08/24 10/08/24 10/08/24 Range/Units 06:03 07:01 08:05 RBC (4.40-5.60) 10*6/uL Hgb (13.0-17.0) g/dL Hct (39.6-50.0) % MCHC (32.0-37.0) g/dL Sodium (137-145) mmol/L Chloride (98-107) mmol/L BUN (9-20) mg/dL Creatinine (0.66-1.25) mg/dL Glucose (74-99) mg/dL POC Glucose (mg/dL) 187 H 173 H 133 H (70-110) mg/dL 10/08/24 10/08/24 10/08/24 Range/Units 09:07 12:51 18:11 RBC (4.40-5.60) 10*6/uL Hgb (13.0-17.0) g/dL Hct (39.6-50.0) % MCHC (32.0-37.0) g/dL Sodium (137-145) mmol/L Chloride (98-107) mmol/L BUN (9-20) mg/dL Creatinine (0.66-1.25) mg/dL Glucose (74-99) mg/dL POC Glucose (mg/dL) 123 H 237 H 254 H (70-110) mg/dL Microbiology - Last 24 Hours (Table) 10/05/24 10:29 Blood Culture - Preliminary Blood
[2024-10-09 00:19] LABS: Glucose,Whole Blood 221 mg/dL (70-110)
[2024-10-09 04:11] LABS: African American GFR (CKD) 44 (>60 ml/min/1.73 sqM); Anion Gap 12 mmol/L; Blood Urea Nitrogen 79 mg/dL (9-20); Calcium 9.5 mg/dL (8.4-10.2); Carbon Dioxide 25 mmol/L (22-30); Chloride 96 mmol/L (98-107); Glucose 213 mg/dL (74-99); Magnesium 2.1 mg/dL (1.6-2.3); Non-African American GFR(CKD) 38 (>60 ml/min/1.73 sqM); Potassium 4.0 mmol/L (3.5-5.1); Sodium 133 mmol/L (137-145)
[2024-10-09 06:38] LABS: Glucose,Whole Blood 174 mg/dL (70-110)
--- NOTE | 2024-10-09 07:59 | XR ---
EXAMINATION TYPE: XR chest 1V portable DATE OF EXAM: 10/09/2024 5:22 AM COMPARISON: 10/08/2024 CLINICAL INDICATION: Male, 49 years old with history of Pt. on vent, TECHNIQUE: XR chest 1V portable view(s) obtained. FINDINGS: The heart size is mildly prominent. The pulmonary vasculature is prominent. No suspicious focal consolidation evident. There is some mild increased lung markings may be some pul monary edema. There is elevation of the right diaphragm. Tracheostomy tube and double lumen catheter remain in posi tion. IMPRESSION: 1. Clinical correlation recommended for congestive heart failure. 2. Lines and catheters discussed above [facility], , 10/09/2024 7:57 AM
[2024-10-09 09:52] LABS: Basophils # (A) 0.01 10*3/uL (0.00-0.10); Basophils % (A) 0.2 %; Eosinophils # (A) 0.10 10*3/uL (0.04-0.35); Eosinophils % (A) 1.6 %; HCT 27.8 % (39.6-50.0); HGB 8.7 g/dL (13.0-17.0); Lymphocytes # (A) 0.83 10*3/uL (0.90-5.00); Lymphocytes % (A) 13.3 %; MCH 27.9 pg (27.0-32.0); MCHC 31.3 g/dL (32.0-37.0); MCV 89.1 fL (80.0-97.0); Monocytes # (A) 0.47 10*3/uL (0.20-1.00); Monocytes % (A) 7.6 %; Neutrophils # (A) 4.79 10*3/uL (1.80-7.70); Neutrophils % (A) 77.0 %; Platelet Count 184 10*3/uL (140-440); RBC 3.12 10*6/uL (4.40-5.60); RDW 19.2 % (11.5-14.5); WBC 6.22 10*3/uL (4.50-10.00)
[2024-10-09] MEDS: LORazepam 1 MG/0.5 ML VIAL IV PRN (10:51)
--- NOTE | 2024-10-09 12:59 | P.PN ---
Subjective Progress Note Date: 10/09/24 Principal diagnosis: Acute on chronic hypoxic respiratory failure secondary to bilateral pneumonia secondary to multidrug resistant Pseudomonas aeruginosa., Candidemia/fungemia This is a 49-year-old white male familiar to my service, history of paraplegia, home vent dependent, history of tracheostomy, patient had multiple admissions to the ICU for recurrent episodes of pneumonia and respiratory failure requiring ventilatory support. On his last admission patient was eventually discharged home on a home ventilator, and this was back on 08/04/2024. Patient was discharged home with a PICC line, patient was in the ER yesterday on 08/28 for abnormal labs mostly low potassium and low sodium discharged home however he came back today complaining of shortness of breath, has been ventilator dependent all along. Chest x-ray showed basically bibasilar opacities/atelectasis, doubt pneumonia, the findings in the left lower lobe are chronic. Patient did have previous history of pneumonia involving the left lower lobe and he had multiple bronchoscopies in the past. Bronchial cultures and sputum cultures have been positive in the past for mostly Pseudomonas aeruginosa. Patient was seen in the ER today, and he is already on cefepime for empiric coverage for potential left lower lobe pneumonia, patient had abnormal electrolytes with relatively low sodium low potassium, no leukocytosis, normal renal profile, blood pressure was soft, and he was given fluid boluses. Lactic acid was 2.1, D-dimer is normal, patient was admitted, and this consult was initiated. 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 On 10/03/2024, the patient is clinically unchanged. Remains on propofol at 10 mcg/kg/min. Calm and comfortable. Responsive and awake. Evening was uneventful. Remains on a mechanical ventilator. Assist-control of 24, tidal volume of 400, FiO2 30% with a PEEP of 5. No blood gases from today. Follow-up chest x-ray from today is showing stable findings without any acute interval ch kelvin and the patient continues to have persistent interstitial opacities bilaterally. The patient remains on TPN at rate of 85 cc an hour. Off pressors. White cell count is 6 with hemoglobin 7.1 and a platelet count of 206. BUN 34 with a creatinine of 1.3. Sodium is at 133. On 10/04/2024, there is absolutely no change in the patient's condition. The patient is resting comfortably on propofol low-dose at 10 mcg. He remains on mechanical ventilator, unable to wean him off the mechanical ventilator and is vent dependent with an assist-control mode at rate of 24, tidal volume of 400, FiO2 of 30% and the PEEP of 5. Chest x-ray remains unchanged. The patient is afebrile and hemodynamically stable, completing the course of Eraxis. Remains on TPN for nutritional support rate of 55 cc an hour. Urine output is minimal and undergoing periodic hemodialysis. The white cell count is 5.9, hemoglobin 7.9, BUN is 59 with a creatinine of 1.9. Potassium levels of 4.5. Next hemodialysis session is on 10/05/2024. Patient was seen today on 10/05/2024, remains in the ICU, intubated mechanically ventilated, on assist-control rate of 24 tidal volume 400 FiO2 30% and PEEP of 5. Remains on propofol 10 mcg/kg/min remains on TPN at 85 cc/h remains on Eraxis patient is sedated but he is arousable and he follows simple instructions. However he is profoundly weak not to mention the patient is p araplegic. Labs today show WBC count of 5.9 hemoglobin is 7 electrolytes are relatively normal bicarb is 21 BUN is 79 creatinine 2.61 patient is receiving hemodialysis this morning. Liver enzymes are a bit elevated with bilirubin of 2.7 AST 39 ALT 59 and alkaline phosphatase of 165. Albumin is 2.5. Chest x-ray continues to show left-sided double-lumen dialysis catheter there is also ongoing pulmonary vascular congestion, possible minimal infiltrates. Medications were reviewed patient remains on Eraxis, Peridex, Aranesp, fentanyl patches, heparin subcu every 8 hours, Dilaudid as needed, insulin as per protocol, DuoNeb updraft 4 times daily and as needed, Ativan as needed, presently off norepinephrine, continues to be on Zofran as needed and Protonix, propofol, and he is off antibiotics except for his Eraxis. Seen today on 10/06/2024, remains in the ICU, intubated and mechanically amrge tilated, he is on assist-control rate of 24 tidal volume 400 FiO2 30% and PEEP of 5. ABG showed a PO2 of 81 pCO2 48 pH of 7.35. Patient is on norepinephrine at 0.05 mcg/kg/min he has borderline blood pressure requiring norepinephrine this morning, hence I went back and placed the patient on Solu-Cortef which was discontinued few days ago. Remains on Eraxis stopped date will be today. Patient is on TPN at 85 mL/h. He is still intermittently getting hemodialysis. Patient is arousable in spite of being on propofol, follows instructions but he looks chronically ill, frail, and debilitated. WBC count today is 8.0 hemoglobin 7.6 hematocrit 25.6 blood sugar is 331. Renal profile showed BUN of 47 creatinine 1.62 otherwise the rest of the labs were unremarkable. Chest x- ray continues to show small minimal pleural effusion and improved aeration compared to prior studies. Medications will all reviewed on Eraxis, Peridex, Aranesp, fentanyl patches, heparin subcu every 8 hours, Dilaudid as needed, insulin as per protocol, DuoNeb updraft 4 times daily and as needed, Ativan as needed, presently off norepinephrine, continues to be on Zofran as needed and Protonix, propofol, and he is off antibiotics except for his Eraxis. Patient was seen today on 10/07/2024, remains in the ICU, intubated and mechanically ventilated, patient is on assist-control rate of 24 tidal volume 400 FiO2 30% PEEP of 5 ABG showed a pO2 of 93 pCO2 45 pH of 7.33 hence no changes were made with his vent settings. Remains on low-dose propofol at 10 mg/kg/min he is on TPN at 85 cc/h sugars are running high requiring insulin drip he is on 18.32 units/h hence I cut down on his Solu-Cortef to 50 mg IV push every 12 hours. Today he is off norepinephrine was put on hold at 9 PM last night. Patient is off Eraxis off antibiotics, considering the patient is chronically debilitated and chronically ill, patient is ventilator dependent, we are experiencing significant difficulty in placement of this patient. Today he will receive a unit of packed RBCs for hemoglobin of 6.9. WBC count today is 5.2 hemoglobin 6.9 platelets are 167 sodium is low 129 potassium 5.9 BUN 72 creatinine 2.2 patient will be receiving another hemodialysis today. Blood sugar is as high as 632 hence the low sodium is really more of the pseudohyponatremia. Patient was seen today on 10/08/2024, remains in the ICU, intubated and mech anically ventilated. Patient is on assist-control rate 44 tidal volume 400 FiO2 30% and PEEP of 5 patient is arousable, follows simple instructions, seems to be profoundly weak. Remains on TPN, his norepinephrine remains on hold. Blood sugars seem to be better controlled, today I am recommending the Lantus insulin and NovoLog insulin subcu as per protocol/Accu-Cheks. His WBC count is 7 hemoglobin 8.2 hematocrit is 26.4. Platelets are 189. Electrolytes are normal BUN is 51 creatinine 1.48. Patient remains on hemodialysis. Patient remains on Solu-Cortef, I am cutting the dose down to 25 mg IV push every 12 hours, eventually would like to placed on oral Cortef. Patient was seen today on 10/09/2024, remains in the ICU, intubated mechanically ventilated, awake, off propofol, not requiring any pressors at this point, patient remains on assist-control rate of 24 tidal volume 400 FiO2 30% and PEEP of 5 patient is receiving hemodialysis during my evaluation. Remains on TPN at 85 cc/h. Chest x-ray is showing improvement in his bilateral airspace disease. Patient remains on Solu-Cortef, and I changed that to oral 25 mg p.o. twice daily. Labs today showed WBC count of 6.2 hemoglobin 8.7 electrolytes are normal BUN is 79 creatinine 2.02. Objective - Vital Signs Vital signs: Vital Signs Temp 98.4 F 10/09/24 12:00 Pulse 100 10/09/24 12:00 Resp 20 10/09/24 12:00 BP 156/78 10/09/24 12:00 Pulse Ox 97 10/09/24 12:00 FiO2 30 10/09/24 12:00 Intake & Output 10/08/24 10/09/24 10/09/24 18:59 06:59 18:59 Intake Total 2447.964 935 510 Output Total 530 730 20 Balance 1917.964 205 490 Weight 90.9 kg 91.3 kg Intake: IV 1105 935 510 TPN 1105 935 510 Intake, IV Titration 1342.964 Amount Fat Emulsion 20% 250 ml 250 In Empty Bag 1 bag @ 21 mls/hr IV Q72H ANNIE Rx#: [id number] Insulin Regular 100 unit 36.964 In Sodium Chloride 0.9% 100 ml @ Titrate IV .Q0M ANNIE Rx#:[id number] Sodium Acetate 50 meq 1056 Sodium Chloride 4Meq/ml Vial 100 meq Calcium Gluconate 0.5 gm Magnesium Sulfate gm 0.5 gm In Amino Acids 5 %/ Dextrose 20 % 1,000 ml @ 85 mls/hr IV .BY DURATION ANNIE Rx#:[id number] Output: Drainage 700 Medial Abdomen 700 Urine 30 30 20 Stool 500 Other: Voiding Method Indwelling Catheter Indwelling Catheter Indwelling Catheter ABP, PAP, CO, CI - Last Documented Arterial Blood Pressure - Exam GENERAL EXAM: 49-year-old white male intubated mechanically ventilated, tracheostomy in place HEAD: Normocephalic. Tracheostomy is intact. Left IJ hemodialysis catheter is noted. EYES: Normal reaction of pupils, equal size. NOSE: Clear with pink turbinates. THROAT: Tracheostomy tube secured in place. NECK: No masses, no JVD. CHEST: No chest wall deformity. LUNGS: Diminished breath sound bilaterally no crackles rhonchi or wheezes CVS: S1 and S2 normal with no audible murmur, regular rhythm. ABDOMEN: Enterocutaneous fistula over the abdominal wall. No hepatosplenomegaly, normal bowel sounds. SKIN: No rashes, patient is quite edematous CENTRAL NERVOUS SYSTEM: Awake, follows all instructions, but profoundly weak. EXTREMITIES: Trace of bipedal edema, extensive muscle atrophy. Contractures. There is no peripheral edema. No clubbing, no cyanosis. Peripheral pulses are intact. Right below-knee amputation is noted. - Labs CBC & Chem 7: 10/09/24 09:34 10/09/24 03:10 Labs: Abnormal Lab Results - Last 24 Hours (Table) 10/08/24 10/09/24 10/09/24 Range/Units 18:11 00:17 03:10 RBC (4.40-5.60) 10*6/uL Hgb (13.0-17.0) g/dL Hct (39.6-50.0) % MCHC (32.0-37.0) g/dL Lymphocytes # (0.90-5.00) 10*3/uL Sodium 133 L (137-145) mmol/L Chloride 96 L (98-107) mmol/L BUN 79 H (9-20) mg/dL Creatinine 2.02 H (0.66-1.25) mg/dL Glucose 213 H (74-99) mg/dL POC Glucose (mg/dL) 254 H 221 H (70-110) mg/dL 10/09/24 10/09/24 Range/Units 06:37 09:34 RBC 3.12 L (4.40-5.60) 10*6/uL Hgb 8.7 L (13.0-17.0) g/dL Hct 27.8 L (39.6-50.0) % MCHC 31.3 L (32.0-37.0) g/dL Lymphocytes # 0.83 L (0.90-5.00) 10*3/uL Sodium (137-145) mmol/L Chloride (98-107) mmol/L BUN (9-20) mg/dL Creatinine (0.66-1.25) mg/dL Glucose (74-99) mg/dL POC Glucose (mg/dL) 174 H (70-110) mg/dL Microbiology - Last 24 Hours (Table) 10/05/24 10:29 Blood Culture - Preliminary Blood Assessment and Plan Assessment: Impression: Acute on chronic hypoxic respiratory failure still intubated and mechanically ventilated, multifactorial but mostly related to multidrug- resistant Pseudomonas aeruginosa pneumonia. Patient had candidemia/Bella parapsilosis group, fully treated with Eraxis x 3 weeks. Septic shock, secondary to above and previously pseudomonal pneumonia, resolved Candidemia with positive yeast in blood cultures has been on treatment for the last 3 weeks receiving Eraxis. This was completed/stopped 10/06/2024.. Follow- up fungal cultures have been negative. Chronic hypoxic and hypercapnic respiratory failure, patient is ventilator dependent, patient has been recently on home ventilator History of severe tracheal stenosis History of tracheostomy History of recurrent pneumonias involving left lower lobe Tracheobronchomalacia History of DVT History of CVA Acute kidney injury/ATN, requiring hemodialysis. History of right below-knee amputation History of asystole/cardiac arrest 2021. 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 Patient is maintained mostly on TPN. Bipedal edema with fluid overload hence patient was placed on Lasix. Recommendation: Continue ventilatory support, patient is chronically ventilated and is ventilator dependent Patient is now off antifungal and off antibiotics. Continue TPN/nutritional support Change Solu-Cortef to oral Cortef 25 mg p.o. twice daily assuming the patient passes the swallow evaluation Continue hemodialysis Continue GI and DVT prophylaxis/Protonix Continue bronchodilators Remains critically ill, patient has multiple comorbidities and multiple issues, our issue at this point seems to be related to placement, cannot get a place where he could be transferred to. Will need possibly a [facility]cf[facility] or ECF willing to handle his ventilator and handle his hemodialysis and his multiple complex issues. Continue insulin and adjust accordingly Critical care time is 32 minutes Overall prognosis remains extremely poor. Time with Patient: Greater than 30
[2024-10-09 13:10] LABS: Glucose,Whole Blood 171 mg/dL (70-110)
[2024-10-09] MEDS: POTASSIUM CHLORIDE 20 MEQ in WATER FOR INJECTION 1 100ML.BAG IVPB ONE (13:19)
--- NOTE | 2024-10-09 14:57 | P.PN ---
Subjective Progress Note Date: 10/09/24 Principal diagnosis: Reason for follow-up is sepsis and pneumonia/candidemia Patient is a 49-year-old male with a past medical history significant for CVA TIA DVT pneumonia history of complicated Crohn's disease in this patient who did have multiple abdominal surgeries patient also have a tracheostomy has been brought to the hospital with Generalized weakness did have a fever concerning for pneumonia on today's evaluation that is 10/09/2024, the patient continues to be afebrile, the patient is intubated on the vent FiO2 is currently at 30% no significant purulent secretions through the ET patient not requiring any pressor support hemodynamically stable, no changes reported. Patient white count 6.22, creatinine 2.02 blood culture from 10/05/2024 remains to be negative Objective - Vital Signs Vital signs: Vital Signs Temp 98.4 F 10/09/24 12:00 Pulse 95 10/09/24 14:00 Resp 24 10/09/24 14:00 BP 127/66 10/09/24 14:00 Pulse Ox 97 10/09/24 14:00 FiO2 30 10/09/24 12:00 Intake & Output 10/08/24 10/09/24 10/09/24 18:59 06:59 18:59 Intake Total 2447.964 2002 680 Output Total 530 730 20 Balance 2702.520 4742 660 Weight 90.9 kg 91.3 kg Intake: IV 1105 935 680 TPN 1105 935 680 Intake, IV Titration 0691.161 3644 Amount Fat Emulsion 20% 250 ml 250 In Empty Bag 1 bag @ 21 mls/hr IV Q72H ANNIE Rx#: [id number] Insulin Regular 100 unit 36.964 In Sodium Chloride 0.9% 100 ml @ Titrate IV .Q0M ANNIE Rx#:[id number] Mvi, Adult No.4 with Vit 1067 K 10 ml Trace (Conc-1Ml/ Dose) 1 ml Sodium Acetate 50 meq Sodium Chloride 4Meq/ml Vial 100 meq Calcium Gluconate 0.5 gm Magnesium Sulfate gm 0.5 gm In Amino Acids 5 %/ Dextrose 20 % 1,000 ml @ 85 mls/hr IV .BY DURATION ANNIE Rx#:[id number] Sodium Acetate 50 meq 1056 Sodium Chloride 4Meq/ml Vial 100 meq Calcium Gluconate 0.5 gm Magnesium Sulfate gm 0.5 gm In Amino Acids 5 %/ Dextrose 20 % 1,000 ml @ 85 mls/hr IV .BY DURATION [facility] Rx#:[id number] Output: Drainage 700 Medial Abdomen 700 Urine 30 30 20 Stool 500 Other: Voiding Method Indwelling Catheter Indwelling Catheter Indwelling Catheter ABP, PAP, CO, CI - Last Documented Arterial Blood Pressure - Exam GENERAL DESCRIPTION: Middle-age male intubated on the vent RESPIRATORY SYSTEM: Unlabored breathing , decreased breath sounds at bases HEART: S1 S2 regular rate and rhythm , ABDOMEN: Soft , no tenderness EXTREMITIES: Swelling to the leg - Labs CBC & Chem 7: 10/09/24 09:34 10/09/24 03:10 Labs: Abnormal Lab Results - Last 24 Hours (Table) 10/08/24 10/09/24 10/09/24 Range/Units 18:11 00:17 03:10 RBC (4.40-5.60) 10*6/uL Hgb (13.0-17.0) g/dL Hct (39.6-50.0) % MCHC (32.0-37.0) g/dL Lymphocytes # (0.90-5.00) 10*3/uL Sodium 133 L (137-145) mmol/L Chloride 96 L (98-107) mmol/L BUN 79 H (9-20) mg/dL Creatinine 2.02 H (0.66-1.25) mg/dL Glucose 213 H (74-99) mg/dL POC Glucose (mg/dL) 254 H 221 H (70-110) mg/dL 10/09/24 10/09/24 10/09/24 Range/Units 06:37 09:34 13:08 RBC 3.12 L (4.40-5.60) 10*6/uL Hgb 8.7 L (13.0-17.0) g/dL Hct 27.8 L (39.6-50.0) % MCHC 31.3 L (32.0-37.0) g/dL Lymphocytes # 0.83 L (0.90-5.00) 10*3/uL Sodium (137-145) mmol/L Chloride (98-107) mmol/L BUN (9-20) mg/dL Creatinine (0.66-1.25) mg/dL Glucose (74-99) mg/dL POC Glucose (mg/dL) 174 H 171 H (70-110) mg/dL Microbiology - Last 24 Hours (Table) 10/05/24 10:29 Blood Culture - Preliminary Blood Assessment and Plan (1) Pneumonia Current Visit: Yes Status: Acute Code(s): J18.9 - PNEUMONIA, UNSPECIFIED ORGANISM SNOMED Code(s): 633154406 (2) Sepsis Current Visit: Yes Status: Acute Code(s): A41.9 - SEPSIS, UNSPECIFIED ORGANISM SNOMED Code(s): 42270129 (3) Candidemia Current Visit: Yes Status: Acute Code(s): B37.7 - CANDIDAL SEPSIS SNOMED Code(s): 695653413 Plan: [facility] this patient who did have fever tachycardia elevated lactic acid upon meeting criteria for SIRS/sepsis source likely pneumonia,patient is status post bronchoscopy lavage results currently growing Pseudomonas that is resistant to Avycaz and corynebacterium, which was vancomycin and Zyvox sensitive, patient completed antibiotic therapy for his pneumonia 2patient did have candidemia source is likely left chest wall PICC line which has been discontinued has been sent for the culture central line placed by computing tutor, blood culture repeat on 09/18/2024 positive blood culture repeat 09/22/2024 so far negative. Subsequently patient did continue PICC line and the chest wall catheter was discontinued as repeat blood culture from 09/22/2024 remained to be negative 3patient has completed his course of Eraxis which was discontinued after 10/06/2024 dose, he also have a blood culture done on 10/05/2024 that remains to be negative and the patient will monitor closely off antibiotic at this point Dictation was produced using [employer] dictation software. please excuse any grammatical, word or spelling errors. Time with Patient: Less than 30
--- NOTE | 2024-10-09 15:36 | P.PN ---
Subjective Patient is seen for follow-up for acute kidney injury. Patient remains on the vent. He is awake. Started hemodialysis on 09/22/2024 for volume overload and worsening acute kidney injury Patient remains oliguric. Urine output 0 to 5 mL/h FiO2 at 30% No significant issues today. Patient is seen on hemodialysis. System clotted again today and patient reports to be obstructed. We would use heparin for his next treatment. Objective - Vital Signs Vital signs: Vital Signs Temp 98 F 10/09/24 15:20 Pulse 96 10/09/24 15:20 Resp 26 H 10/09/24 15:20 BP 156/78 10/09/24 15:20 Pulse Ox 98 10/09/24 15:00 FiO2 30 10/09/24 15:12 Intake & Output 10/08/24 10/09/24 10/09/24 18:59 06:59 18:59 Intake Total 2447.964 2002 1765 Output Total 401 417 2383 Balance 4543.670 4893 -5255 Weight 90.9 kg 91.3 kg Intake: IV 1105 935 765 TPN 1105 935 765 Intake, IV Titration 6590.983 2633 Amount Fat Emulsion 20% 250 ml 250 In Empty Bag 1 bag @ 21 mls/hr IV Q72H ANNIE Rx#: [id number] Insulin Regular 100 unit 36.964 In Sodium Chloride 0.9% 100 ml @ Titrate IV .Q0M ANNIE Rx#:[id number] Mvi, Adult No.4 with Vit 1067 K 10 ml Trace (Conc-1Ml/ Dose) 1 ml Sodium Acetate 50 meq Sodium Chloride 4Meq/ml Vial 100 meq Calcium Gluconate 0.5 gm Magnesium Sulfate gm 0.5 gm In Amino Acids 5 %/ Dextrose 20 % 1,000 ml @ 85 mls/hr IV .BY DURATION ANNIE Rx#:[id number] Sodium Acetate 50 meq 1056 Sodium Chloride 4Meq/ml Vial 100 meq Calcium Gluconate 0.5 gm Magnesium Sulfate gm 0.5 gm In Amino Acids 5 %/ Dextrose 20 % 1,000 ml @ 85 mls/hr IV .BY DURATION ANNIE Rx#:[id number] Hemodialysis 1000 Output: Drainage 700 Medial Abdomen 700 Urine 30 30 20 Stool 500 Hemodialysis 4000 Hemodialysis Net Amount 3000 Other: Voiding Method Indwelling Catheter Indwelling Catheter Indwelling Catheter ABP, PAP, CO, CI - Last Documented Arterial Blood Pressure - Exam Patient is on the vent he is awake. Examination of the heart S1 and S2 Tracheostomy noted Examination of the lungs bilateral breath sounds are heard Abdomen is distended Examination of lower extremities shows right BKA and 2+ edema in the left leg - Labs CBC & Chem 7: 10/09/24 09:34 10/09/24 03:10 Labs: Abnormal Lab Results - Last 24 Hours (Table) 10/08/24 10/09/24 10/09/24 Range/Units 18:11 00:17 03:10 RBC (4.40-5.60) 10*6/uL Hgb (13.0-17.0) g/dL Hct (39.6-50.0) % MCHC (32.0-37.0) g/dL Lymphocytes # (0.90-5.00) 10*3/uL Sodium 133 L (137-145) mmol/L Chloride 96 L (98-107) mmol/L BUN 79 H (9-20) mg/dL Creatinine 2.02 H (0.66-1.25) mg/dL Glucose 213 H (74-99) mg/dL POC Glucose (mg/dL) 254 H 221 H (70-110) mg/dL 10/09/24 10/09/24 10/09/24 Range/Units 06:37 09:34 13:08 RBC 3.12 L (4.40-5.60) 10*6/uL Hgb 8.7 L (13.0-17.0) g/dL Hct 27.8 L (39.6-50.0) % MCHC 31.3 L (32.0-37.0) g/dL Lymphocytes # 0.83 L (0.90-5.00) 10*3/uL Sodium (137-145) mmol/L Chloride (98-107) mmol/L BUN (9-20) mg/dL Creatinine (0.66-1.25) mg/dL Glucose (74-99) mg/dL POC Glucose (mg/dL) 174 H 171 H (70-110) mg/dL Microbiology - Last 24 Hours (Table) 10/05/24 10:29 Blood Culture - Preliminary Blood Assessment and Plan Assessment: 1. Acute kidney injury secondary to ATN secondary to septic shock and vancomycin toxicity. Vancomycin level 49.3 on 09/19/2024. Patient remains oliguric but regular. Started hemodialysis on 09/22/2024. 2. Septic shock secondary to pneumonia and fungemia. Stable now 3. Acute blood loss anemia status post packed RBCs transfusion. Hemoglobin stable. Maintained on Aranesp 4. Volume overload. 5. Chronic hypoxic and hypercapnic respiratory failure, home ventilator dependent. 6. History of cardiac arrest. 8. Status post right BKA. 9. Hyperkalemia associated with severe hyperglycemia. TPN adjusted, improved Plan: Maintain hemodialysis on Saturday schedule Use heparin with hemodialysis on Saturday Maintained on TPN Continue to monitor electrolytes.
[2024-10-09 19:07] LABS: Glucose,Whole Blood 170 mg/dL (70-110)
[2024-10-09] MEDS: HYDROCORTISONE 20 MG TAB PO SCH (20:37)
[2024-10-09 23:44] LABS: Glucose,Whole Blood 194 mg/dL (70-110)
[2024-10-10 04:04] LABS: Basophils # (A) 0.02 10*3/uL (0.00-0.10); Basophils % (A) 0.3 %; Eosinophils # (A) 0.08 10*3/uL (0.04-0.35); Eosinophils % (A) 1.4 %; HCT 26.6 % (39.6-50.0); HGB 8.2 g/dL (13.0-17.0); Lymphocytes # (A) 0.87 10*3/uL (0.90-5.00); Lymphocytes % (A) 15.0 %; MCH 27.4 pg (27.0-32.0); MCHC 30.8 g/dL (32.0-37.0); MCV 89.0 fL (80.0-97.0); Monocytes # (A) 0.58 10*3/uL (0.20-1.00); Monocytes % (A) 10.0 %; Neutrophils # (A) 4.23 10*3/uL (1.80-7.70); Neutrophils % (A) 72.8 %; Platelet Count 164 10*3/uL (140-440); RBC 2.99 10*6/uL (4.40-5.60); RDW 19.0 % (11.5-14.5); WBC 5.81 10*3/uL (4.50-10.00)
[2024-10-10 04:39] LABS: African American GFR (CKD) 58 (>60 ml/min/1.73 sqM); Anion Gap 9 mmol/L; Blood Urea Nitrogen 55 mg/dL (9-20); Calcium 9.1 mg/dL (8.4-10.2); Carbon Dioxide 25 mmol/L (22-30); Chloride 95 mmol/L (98-107); Glucose 164 mg/dL (74-99); Magnesium 1.8 mg/dL (1.6-2.3); Non-African American GFR(CKD) 50 (>60 ml/min/1.73 sqM); Potassium 3.5 mmol/L (3.5-5.1); Sodium 129 mmol/L (137-145)
[2024-10-10] MEDS: POTASSIUM CHLORIDE 20 MEQ in WATER FOR INJECTION 1 100ML.BAG IVPB SCH (05:48)
--- NOTE | 2024-10-10 06:35 | P.PN ---
Subjective Progress Note Date: 10/09/24 Chief Complaint: Short of breath 49-year-old patient, follows with Dr. Murcia History of paraplegia, home vent at night, tracheostomy multiple admissions to the ICU for recurrent pneumonia. Patient's previous bronchial cultures been positive for Pseudomonas. He was discharged recently on IV cefepime. Also has a history of Crohn's disease with previous colectomy diverting ileostomy. History of DVT for which patient is on subcu Lovenox. Also had drug-resistant MRSA Pseudomonas. Patient currently does not have areas significant trach secretions. He has continues TPN. Has a right BKA. He does have slight movement in the right hand. Able to follow commands by nodding his head. Answering questions. He is scared by his elder son open. I was also the DPOA. August 30: Overnight patient started having more secretions through the tracheostomy. Vancomycin was added. Also blood pressure running low patient was put on Levophed drip. Otherwise sinus rhythm. Patient remains on the ventilator. Will also send off stool for C. difficile. Also patient IV cefepime. Getting TPN. August 31: ICU. Patient had positive fluid balance. Was given IV Lasix earlier. Remains on Levophed. Spiking fevers. Getting TPN. Stool negative for C. difficile. Patient is growing MDRO Pseudomonas aeruginosa. ID is ordered IV Zerbaxa. Which is currently not available. Patient's friend is visiting him in the ICU. Light trach secretion September 01: ICU. On the ventilator. FiO2 45%. PEEP of 5. Continues to have light trach secretions. Sputum cultures again growing Pseudomonas. Zerbaxa was obtained and resumed. Blood pressure running low. On Levophed. Patient's younger son at the bedside. Colostomy working fine. Has been spiking fevers. Cooling blanket. Ice packs. September 02: ICU. Ventilator FiO2 45%. PEEP of 5. Continues to have some trach secretions. IV Zerbaxa IV tobramycin. TPN lipids to continue. Also Levophed. Patient started cooling blankets since yesterday for temperatures. Along with the nurse speech therapy records were reviewed from last few admissions. Patient with multiple MBS and bedside swallow eval. No trouble with swallowing. Patient put on a chopped diet. Thin liquids. Patient did spike a fever of 101.7 earlier today. Low ionized calcium. IV gluconate given. September 03: ICU. On ventilator FiO2 45%. PEEP of 5. Mild trach secretions. Getting IV TPN lipids. IV tobramycin. Zerbaxa was substituted to Avycaz. By ID. No fever per se since yesterday. For blood pressure patient is also on Levophed and vasopressin. September 04: ICU. On ventilator FiO2 45%. PEEP of 5. Clear trach secretions. Getting IV TPN lipids. IV tobramycin. And IV Avycaz. Remains afebrile.. On Levophed and vasopressin. Awake. 09/06/2024 Patient is seen and evaluated in ICU; remains on mechanical ventilator, actually his home ventilator, with settings of volume assist-control, rate 20, tidal volume 450, FiO2 45%, PEEP of 5. - patient has been refusing blood; no ABGs to. He is getting lactated Ringer's at 50 cc an hour, TPN at 65 cc an hour. - patient remains on the same antibiotics. - Labs reviewed which reveal white count 5.21, hemoglobin 7.9, hematocrit 27.5, and platelet count 64,000. Sodium 141, potassium 3.5, chlorides 102, CO2 32, BUN 25, and creatinine 0.35. Glucose is 152. Calcium is 8. Albumin is 2.1. -Chest x-ray is largely unchanged. Critical care managing mechanical ventilation; recommending to add scopolamine patch for increased secretion -Patient remains on Avycaz and tobramycin - Continue with current TPN 09/07 Patient remains in the ICU lethargic. He is s/p tracheostomy Overnight he was more hypoxic they have to increase PEEP to 8. Also has a lot of secretions when needed for secretions suctioning to try to become apneic per Staff. Patient currently receiving Avycaz and tobramycin. on TPN also 09/08 Patient remains in the ICU awake and alert status post tracheostomy. He has contractures of both upper and lower extremities He is complaining from pain in his lungs. He is status post flexible bronchoscopy and bronchoalveolar lavage yesterday. He has previous sputum culture positive for Pseudomonas currently covered with ceftazidime and tobramycin. He is also on Lovenox 90 mg 09/09 Patient still in the ICU on mechanical ventilation via tracheostomy. PEEP is 8.0 as is yesterday Also he spiked little fever to 100.7. IV vancomycin is added to tobramycin and ceftazidime He is getting also bronchoscopy follow-up culture results 09/10 Patient feels clinically the same, he still getting breathing via mechanical ventilation through his tracheostomy with PEEP of 8. Patient feels he is required suctioning through his tracheostomy tube. He denies chest pain or pain anywhere else he can communicate by head signs and gestures. Hemodynamically stable and afebrile hemoglobin 7.4 platelet count 73 Glucose is controlled potassium 3.3 He remains on broad-spectrum antibiotic Rocephin at this time tobramycin and IV vancomycin added yesterday because he had low-grade fever. He is getting TPN. IV fluid Ringer lactate was stopped and patient was started on IV Lasix 20 mg 3 times a day continue with therapeutic dose of Lovenox as well 09/11 Patient remains in the ICU Remains on mechanical ventilation via tracheostomy He status post bronchoalveolar lavage 2 days ago, culture is growing Pseudomonas aeruginosa and corynebacterium Patient remains on broad-spectrum antibiotics with IV vancomycin, tobramycin, ceftazidime On IV Lasix also is on therapeutic dose of Lovenox 90 mg twice daily No IV fluids 09/12 Patient remains in the ICU Clinically close to what he was over the last 2 days still getting oxygen via his tracheostomy He remains on broad-spectrum antibiotic with Ceftin this time and IV vancomycin. Also he is on IV Lasix 20 mg and therapeutic dose of Lovenox. 09/13 Patient remains in the ICU on mechanical ventilation via tracheostomy Patient looks better today, he breathing better Less secretion Fentanyl patch increased 09/14. Patient seen and examined. Patient continues to be on mechanical ventilation via trach mask. Currently on TPN. Currently on IV Zerbaxa and vancomycin 09/15. Patient seen and examined.Vital signs done showed the patient overnight, heart rate 106, blood pressure 107/40, currently on ventilation. Labs reviewed showed WBC 7.27, hemoglobin 7.5, sodium 148 on potassium 4.3, BUN 23, creatinine 0.47 09/16. Patient seen and examined labs reviewed showing WBC 5.45, hemoglobin 9.6, platelet count 131, sodium 146, potassium 4.1, BUN 20, creatinine 0.47. Continue small amount of Levophed. Currently on Zerbaxa and vancomycin. Currently on TPN September 17: ICU. Patient has taken a turn for the worse today. Significant thick white secretions from the trach. Sinus rhythm. Receiving TPN. Patient is on Levophed and vasopressor. Rather high dose. FiO2 [address] of 10. [address] Ho earlier spoke to the patient/family. Remains full code September 18: ICU. Intubated FiO2 70 PEEP of 12. Sinus rhythm. Drips include IV propofol at 50 and Levophed at 0.13. Patient is off vasopressin. Patient secretions. Family at the bedside. September 19: ICU. Intubated. FiO2 50 and a PEEP of 12. Drips include IV Levophed and propofol. Also started on Lasix drip 10 mg an hour yesterday. Secretions present. September 20: ICU. Intubated. FiO2 50 and a PEEP of 12. Hemoglobin 6.3. Secondary to blood being given. Patient been on and off Levophed. On propofol. Lipids have been held. Continues with TPN. Lasix drip was discontinued. Lovenox has been held because of low hemoglobin. Unable anemia is felt to be combination of regular blood draws and possible element element of hemolysis from all the infection. No dark stool. Family at the bedside September 21: ICU. Intubated. Received 2 units of blood yesterday. Hemoglobin 7.6 today. Per nephrology renal replacement therapy. Dialysis access placed by Dr. Cadena. Patient earlier today on Levophed. Propofol. Getting TPN. Sinus rhythm. Urine output decreased September 22: ICU. Intubated. FiO2 15 of PEEP of 12. Seen earlier today. Dialysis being started. Been on IV Levophed propofol. Sinus rhythm. TPN. Sinus rhythm. September 23: ICU. Intubated. Due for another dialysis today. Saw the patient earlier today. Remains on IV Levophed propofol. Sinus rhythm. TPN. On fentanyl patch. September 24: ICU. Intubated. FiO2 40 and PEEP of 12. Remains on IV Levophed and propofol. IV TPN. Decrease trach secretions. IV antibiotics. Was due for dialysis earlier today. September 25: ICU. Intubated. FiO2 30%. Patient getting IV Levophed and propofol. IV TPN. Dialysis today. Receiving IV antibiotics. Does opens eyes occasionally. Some commands per nursing. September 26: ICU. Intubated. FiO2 30 and a PEEP of 8. Had 2 L hemodialysis removed yesterday. Getting hemodialysis today. Aiming for 2 to 3 L. Patient is on propofol. Currently Levophed on hold. Getting TPN. Patient is actually awake and following commands. Sinus rhythm. September 27: ICU. Intubated. FiO2 39 PEEP of 8. No dialysis today. Remains on IV Levophed propofol. TPN. There is a bedside. Patient asked me how is he doing. Had a lengthy information in terms of his guarded prognosis. Did tell him it is his choice about how he wishes to proceed. He needs to decide between treatment benefits versus in the suffering because of that entails from treatment and his recurrent infections etc. Especially in the context of decreased activity. Kidney failure, respiratory failure etc. September 28: ICU. Intubated. FiO2 30 and a PEEP of 8. For dialysis today. Off Levophed this morning. IV propofol. TPN. Some clear light to trach secret ions. Colostomy working. Poor urine output. September 29: ICU. Intubated. IV propofol Levophed. TPN. Awake. Discussed with Dr. Holt. Prognosis very poor. Probably treatment is the point of getting futile. Patient needs about 34 more days to go to long-term ventilator setting. September 30: ICU. Intubated. IV propofol. Currently off Levophed. TPN. Getting dialysis today. Awake. IV antifungal. Given a unit of blood for hemoglobin of 6.9 October 01: ICU. Intubated. IV propofol. Remains on Levophed. TPN dose adjusted. Dialysis. IV aniedulefungin. Eyes open. Vent. FiO2 30%. PEEP 5 September 18: ICU. Intubated. IV propofol. Off Levophed. TPN. Dialysis today. IV aniedulefungin last day on October 06. Per ID. Some trach secretions clear October 03: ICU. Intubated. IV propofol. TPN. Dialysis schedule will now be Saturday. Next dialysis will be on coming Saturday. IV aniedulefungin last day-I October 06. Minimal urine output-5 to 10 cc an hour. Awake. October 04: ICU. Intubated. IV propofol. TPN. Next dialysis on Saturday. IV elevated Lida function. Urine output remains to be minimal. Awake. Mother at the bedside. Does not have any questions. Sinus rhythm. 10/05/2024 Patient seen in follow-up today remains in the ICU on mechanical ventilation FiO2 is 30%. Patient is requiring some small dose Levophed as blood pressures were low maintained on hemodialysis. Multiple consultations following including infectious disease the patient is maintained on Eraxis which will be completed after October 06, 2024. Patient is continued on TPN and will continue. Prognosis remains poor and guarded at this time. 10/06/2024 Patient seen and evaluated in follow-up today with no significant changes other than blood sugars are becoming more elevated likely secondary to Cortef be resumed. Will add long-acting insulin and continue with sliding scale. Would recommend ACHS as well as at 2 AM as needed. Patient is afebrile continued on mechanical ventilation and will be completing Eraxis today. 10/07/2024 Patient seen in follow-up today continues on mechanical ventilation with an FiO2 of 30%, currently awake following commands and is maintained on low-dose propofol. Blood sugars extremely elevated above 500 and had started long-acting although no improvement, likely secondary to Solu-Cortef and is placed on insulin drip. Will adjust accordingly and titrate and attempt to wean as tolerated. Patient has completed Eraxis with infectious disease following closely. Hemoglobin was also noted to be low at 6.9 today and being transfused 1 unit and will follow-up on repeat labs this afternoon. Patient is scheduled to receive hemodialysis today. Patient is requesting if he can eat although is maintained on TPN and now with blood sugars of 500, no plans for resuming a diet as of today. 10/08/2024 Patient is seen in follow-up today is being closely monitored off antibiotic therapy and has completed Eraxis with infectious disease following closely. Patient is maintained on TPN along with Solu-Cortef and blood sugars were elevated requiring insulin drip as blood sugars were also noted to be over 500 yesterday. Blood sugars improved being started on long-acting along with sliding scale and insulin drip discontinued. Cortef also being adjusted per pulmonary sheriffs detective. Patient continues on mechanical ventilation is awake and alert. FiO2 is 30%. Hemoglobin is improved status post 1 unit PRBC and is 8.2 today. Sodium improved at 133 with a potassium of 4.3, BUN is 51 and creatinine is 1.48. Case management/social work is following and awaiting until new insurance becomes effective next month and looking into possible ECF versus LT AC. Patient does have significant complex comorbidities and extremely guarded prognosis, would benefit from LTAC. Patient is afebrile and most recent blood cultures remain negative. 10/09/2024 Patient is seen in follow-up this morning continues to be in the ICU. Patient being evaluated by speech as patient would like to eat and will await official report. Patient's blood sugars have improved and transitioned off insulin drip maintained on long-acting along with sliding scale and will continue. Case management/social work is following looking into possible ECF that can accommodate hemodialysis as well as his significant comorbidities and ventilation via tracheostomy. Patient would benefit from LTAC although is having insurance issues. New insurance will become effective in October to be able to receive more LTAC days. Patient with significant multiple comorbidities requiring higher level of care. Patient is afebrile and CBC is within normal limits with no active bleeding noted. Will continue to monitor closely and recommend follow-up labs. Review of systems: Constitutional: No reports of fatigue, fever, or chills Cardiovascular: No reports of chest pain or palpitations Respiratory: No reports of shortness of breath or cough GI: No reports of nausea, vomiting, or diarrhea, reports wanting to eat : No reports of dysuria or retention Neurovascular: reports of weakness, and is bedbound All medications have been reviewed Active Medications Albuterol/Ipratropium (Ipratropium-Albuterol 3 Ml Neb) 3 ml INHALATION RT-Q4H PRN PRN Reason: shortness of breath Last Admin: 10/09/24 15:08 Dose: 3 ml Artificial Tears (Artificial Tears-Hypromellose Drops 15 Ml Btl) 1 drops BOTH EYES QID PRN PRN Reason: Dry Eye(s) Last Admin: 09/04/24 12:52 Dose: 1 drops Chlorhexidine Gluconate (Chlorhexidine Gluconate 15 Ml Cup) 15 ml MUCOUS MEM BID [facility] Last Admin: 10/09/24 20:37 Dose: 15 ml Darbepoetin Andry (Darbepoetin Andry 40 Mcg/0.4 Ml Syringe) 40 mcg SQ Q7D [facility] Last Admin: 10/08/24 11:38 Dose: 40 mcg Dextrose/Water (Dextrose 50% Syringe 50 Ml) 25 ml IVP PER PROTOCOL PRN; Protocol PRN Reason: Hypoglycemia Dextrose/Water (Dextrose 50% Syringe 50 Ml) 50 ml IVP PER PROTOCOL PRN; Protocol PRN Reason: Hypoglycemia Fentanyl (Fentanyl 100mcg/Hr Patch) 1 patch TRANSDERM Q72H [facility]; Protocol Last Admin: 10/07/24 08:18 Dose: 1 patch Heparin Sodium (Porcine) (Heparin Sodium,Porcine 5,000 Unit/Ml 1 Ml Vial) 5,000 unit SQ Q8HR [facility] Last Admin: 10/10/24 00:37 Dose: 5,000 unit Hydrocortisone (Hydrocortisone 20 Mg Tab) 20 mg PO BID [facility] Last Admin: 10/09/24 20:37 Dose: 20 mg Hydromorphone HCl (Hydromorphone 1 Mg/Ml 1 Ml Syringe) 1 mg IVP Q3HR PRN PRN Reason: Moderate Pain (Scale 4 to 6) Last Admin: 10/10/24 03:39 Dose: 1 mg Sodium Acetate 50 meq/ Sodium Chloride 100 meq/ Calcium Gluconate 0.5 gm/ Magnesium Sulfate 0.5 gm/ Amino Acids/Dextrose 1,056 mls @ 85 mls/hr IV .BY DURATION [facility] Last Admin: 10/10/24 03:39 Dose: 85 mls/hr Parenteral Vitamin Supplement 10 ml/ Zinc/Copper/Manganese/Selenium 1 ml/ Sodium Acetate 50 meq/ Sodium Chloride 100 meq/ Calcium Gluconate 0.5 gm/Magnesium Sulfate 0.5 gm/Amino Acids/Dextrose 1,067 mls @ 85 mls/hr IV .BY DURATION [facility] Last Admin: 10/09/24 14:20 Dose: 85 mls/hr Fat Emulsion Intravenous 250 (ml/ IV Solution) 250 mls @ 21 mls/hr IV Q72H [facility] Last Admin: 10/08/24 14:27 Dose: 21 mls/hr Potassium Chloride 20 meq/ IV (Solution) 100 mls @ 50 mls/hr IVPB Q2H [facility]; Protocol Stop: 10/10/24 09:14 Last Admin: 10/10/24 05:48 Dose: 50 mls/hr Insulin Glargine (Insulin Glargine (Lantus) 100 Unit/Ml Syr) 20 unit SQ DAILY@0700 [facility] Last Admin: 10/09/24 06:42 Dose: 20 unit Insulin Human Lispro (Insulin Lispro (Humalog) 100 Unit/Ml 10 Ml Vl) 0 unit SQ Q6H [facility]; Protocol Last Admin: 10/10/24 00:38 Dose: 2 unit Lorazepam (Lorazepam 1 Mg/0.5 Ml Vial) 1 mg IV Q6HR PRN PRN Reason: Anxiety Last Admin: 10/09/24 10:51 Dose: 1 mg Miscellaneous Information (Potassium Replacement Protocol 1 Each Misc) 1 each MISCELLANE DAILY PRN; Protocol PRN Reason: Per Protocol Miscellaneous Information (Magnesium Replacement Protocol 1 Each Misc) 1 each MISCELLANE DAILY PRN; Protocol PRN Reason: Per Protocol Naloxone HCl (Naloxone 0.4 Mg/Ml 1 Ml Vial) 0.2 mg IV Q2M PRN PRN Reason: Opioid Reversal Ondansetron HCl (Ondansetron 4 Mg/2 Ml Vial) 4 mg IVP Q6HR PRN PRN Reason: Nausea And Vomiting Last Admin: 09/01/24 19:41 Dose: 4 mg Pantoprazole Sodium (Pantoprazole 40 Mg/10 Ml Vial) 40 mg IV DAILY ANNIE Last Admin: 10/09/24 13:19 Dose: 40 mg Petrolatum (Zinc Oxide Paste (Z-Guard) 1 Applic) 1 applic TOPICAL BID PRN; Protocol PRN Reason: Wound Healing Physical examination: GENERAL:, 49-year-old male who is awake, alert and oriented x 3, following commands continued on mechanical ventilation via tracheostomy with an FiO2 of 30% EYES: Pupils equal. Conjunctiva normal HEENT: External appearance of nose and ears normal, oral cavity dry NECK: JVD unable to assess; masses not palpable. Tracheostomy HEART: First and second heart sounds are normal; no edema. LUNGS: decreased breath sounds bilaterally, some crackles ABDOMEN: Soft, nontender, liver spleen not palpable, no masses palpable. Double barrel ostomy. PSYCH: Following simple commands MUSCULOSKELETAL: Right BKA. Left foot drop. Left hand contracture. Right hand also with contracture but able to have some movements NEUROLOGICAL: Cranial nerves grossly intact; no facial asymmetry, slight movement in the right arm. Assessment plan: - Basilar pneumonia. Previous admission sputum was positive for Pseudomonas aeruginosa - Candidemia secondary to left chest wall PICC line that has been discontinued. And repeat blood cultures on September 22 negative. Line changes are being followed by ID IV Eraxis-patient has completed Eraxis - Fluid overload Had received Lasix drip, currently off Lasix drip - Acute kidney injury from ATN from septic shock. And possibly vancomycin toxicity. Oliguric. Volume overload. First dialysis was on September 22.-Has been getting dialysis nearly daily. From now on dialysis schedule be Saturday - Metabolic alkalosis, improved - Septic shock: Requiring pressor support Levophed has been on and off, blood pressures softer today requiring low-dose Levophed - Acute on chronic hypoxic and hypercapnic respiratory failure, vent dependent at night at home: On ventilator support. Propofol - Tracheostomy with trach collar -Acute normocytic anemia of chronic disease and hospital-acquired anemia from blood draws and possible hemolysis from infection Has received 7 units of blood - Thrombocytopenia likely from sepsis: Corrected - Right below-knee amputation history - Chronic quadriparesis. Including left foot drop. Left arm contracture. Some right hand contracture. Some movement in the right arm - Crohn's disease with double barrel ostomy bag in place since 09/2021 - TPN and lipids Lipids have been held during propofol - Hyperglycemia, likely secondary to Solu-Cortef as well as TPN, started on insulin drip 10/07/2024 - Full code - DPDAVID, haylee PENA Plan: Patient remains in the ICU on mechanical ventilation with an FiO2 of 30% via tracheostomy Continued per propofol along with Dilaudid Patient has completed Eraxis 10/06/2024 per ID recommendations being closely monitored off antibiotic therapy Continue current supportive care Blood sugars have been elevated and uncontrolled likely secondary to Solu-Cortef being resumed, patient was on insulin drip and will wean as tolerated and be transition to long-acting along with sliding scale, Solu-Cortef reduced as well Recommend follow-up labs in the a.m. including CBC and CMP. Replace electrolytes per protocol. Transfuse if 7 or less on hemoglobin. No active bleeding noted Case management/social work following and awaiting new insurance to become effective regarding discharge planning which will require LTAC versus ECF Overall prognosis is extremely poor and per family and patient, CODE STATUS remains full code The impression and plan of care has been dictated by Alyssa Hernandez, Nurse Practitioner as directed. Dr. Gerry MD I have performed a history and examination and MDM of this patient, discussed the same with the dictator, and agree with the dictator's assessment and plan as written ,documented as a scribe. Based on total visit time, I have performed more than 50% of the visit. Objective - Vital Signs Vital signs: Vital Signs Temp 98.4 F 10/10/24 00:00 Pulse 99 10/10/24 06:00 Resp 24 10/10/24 05:00 BP 100/47 10/10/24 06:00 Pulse Ox 98 10/10/24 06:00 FiO2 30 10/10/24 03:58 Intake & Output 10/09/24 10/09/24 10/10/24 06:59 18:59 06:59 Intake Total 2001 3076 1020 Output Total 73 7346 430 Balance 1272 -4254 590 Weight 91.3 kg 91.2 kg Intake: IV 935 1020 935 TPN 935 1020 935 Intake, IV Titration 1067 1056 Amount Mvi, Adult No.4 with Vit 1067 K 10 ml Trace (Conc-1Ml/ Dose) 1 ml Sodium Acetate 50 meq Sodium Chloride 4Meq/ml Vial 100 meq Calcium Gluconate 0.5 gm Magnesium Sulfate gm 0.5 gm In Amino Acids 5 %/ Dextrose 20 % 1,000 ml @ 85 mls/hr IV .BY DURATION [facility] Rx#:[id number] Sodium Acetate 50 meq 1056 Sodium Chloride 4Meq/ml Vial 100 meq Calcium Gluconate 0.5 gm Magnesium Sulfate gm 0.5 gm In Amino Acids 5 %/ Dextrose 20 % 1,000 ml @ 85 mls/hr IV .BY DURATION [facility] Rx#:[id number] TPN/PPN 85 TPN 85 Hemodialysis 1000 Output: Drainage 700 Medial Abdomen 700 Urine 30 30 30 Stool 300 400 Hemodialysis 4000 Hemodialysis Net Amount 3000 Other: Voiding Method Indwelling Catheter Indwelling Catheter Indwelling Catheter ABP, PAP, CO, CI - Last Documented Arterial Blood Pressure - Labs CBC & Chem 7: 10/10/24 03:32 10/10/24 03:32 Labs: Abnormal Lab Results - Last 24 Hours (Table) 10/09/24 10/09/24 10/09/24 Range/Units 06:37 09:34 13:08 RBC 3.12 L (4.40-5.60) 10*6/uL Hgb 8.7 L (13.0-17.0) g/dL Hct 27.8 L (39.6-50.0) % MCHC 31.3 L (32.0-37.0) g/dL Lymphocytes # 0.83 L (0.90-5.00) 10*3/uL Sodium (137-145) mmol/L Chloride (98-107) mmol/L BUN (9-20) mg/dL Creatinine (0.66-1.25) mg/dL Glucose (74-99) mg/dL POC Glucose (mg/dL) 174 H 171 H (70-110) mg/dL Phosphorus (2.5-4.5) mg/dL 10/09/24 10/09/24 10/10/24 Range/Units 19:03 23:43 03:32 RBC (4.40-5.60) 10*6/uL Hgb (13.0-17.0) g/dL Hct (39.6-50.0) % MCHC (32.0-37.0) g/dL Lymphocytes # (0.90-5.00) 10*3/uL Sodium 129 L (137-145) mmol/L Chloride 95 L (98-107) mmol/L BUN 55 H (9-20) mg/dL Creatinine 1.59 H (0.66-1.25) mg/dL Glucose 164 H (74-99) mg/dL POC Glucose (mg/dL) 170 H 194 H (70-110) mg/dL Phosphorus 2.4 L (2.5-4.5) mg/dL 10/10/24 Range/Units 03:32 RBC 2.99 L (4.40-5.60) 10*6/uL Hgb 8.2 L (13.0-17.0) g/dL Hct 26.6 L (39.6-50.0) % MCHC 30.8 L (32.0-37.0) g/dL Lymphocytes # 0.87 L (0.90-5.00) 10*3/uL Sodium (137-145) mmol/L Chloride (98-107) mmol/L BUN (9-20) mg/dL Creatinine (0.66-1.25) mg/dL Glucose (74-99) mg/dL POC Glucose (mg/dL) (70-110) mg/dL Phosphorus (2.5-4.5) mg/dL
[2024-10-10 06:36] LABS: Glucose,Whole Blood 177 mg/dL (70-110)
--- NOTE | 2024-10-10 07:50 | XR ---
EXAMINATION TYPE: XR chest 1V DATE OF EXAM: 10/10/2024 5:55 AM COMPARISON: 10/09/2024 CLINICAL INDICATION: Male, 49 years old with history of pneumonia, FINDINGS: Indwelling tubes and catheters are unchanged. No change in bibasilar opacities. Stable appearance of the cardio-mediastinal structures at this time. Pleural effusion unchanged. IMPRESSION: 1. Stable portable chest. Clinical correlation and follow up until resolution is recommended. [facility], , 10/10/2024 7:47 AM
--- NOTE | 2024-10-10 10:13 | P.PN ---
Subjective Progress Note Date: 10/10/24 Patient is seen for follow-up for acute kidney injury. Patient remains on the vent. He is awake. Started hemodialysis on 09/22/2024 for volume overload and worsening acute kidney injury Patient remains oliguric. Urine output 0 to 5 mL/h FiO2 at 30% No significant issues today. Objective - Vital Signs Vital signs: Vital Signs Temp 98.6 F 10/10/24 08:00 Pulse 103 H 10/10/24 09:00 Resp 24 10/10/24 09:00 BP 151/63 10/10/24 09:00 Pulse Ox 97 10/10/24 09:00 FiO2 30 10/10/24 08:00 Intake & Output 10/09/24 10/10/24 10/10/24 18:59 06:59 18:59 Intake Total 3076 1105 395 Output Total 7330 435 10 Balance -4254 670 385 Weight 91.2 kg Intake: IV 1020 1020 170 TPN 1020 1020 170 Intake, IV Titration 1056 200 Amount Potassium Chloride 20 meq 200 In Water For Injection 1 100ml.bag @ 50 mls/hr IVPB Q2H [facility] Rx#: [id number] Sodium Acetate 50 meq 1056 Sodium Chloride 4Meq/ml Vial 100 meq Calcium Gluconate 0.5 gm Magnesium Sulfate gm 0.5 gm In Amino Acids 5 %/ Dextrose 20 % 1,000 ml @ 85 mls/hr IV .BY DURATION [facility] Rx#:[id number] Oral 25 TPN/PPN 85 TPN 85 Hemodialysis 1000 Output: Urine 30 35 10 Stool 300 400 Hemodialysis 4000 Hemodialysis Net Amount 3000 Other: Voiding Method Indwelling Catheter Indwelling Catheter Indwelling Catheter ABP, PAP, CO, CI - Last Documented Arterial Blood Pressure - Exam Patient is on the vent he is awake. Examination of the heart S1 and S2 Tracheostomy noted Examination of the lungs bilateral breath sounds are heard Abdomen is distended Examination of lower extremities shows right BKA and 2+ edema in the left leg - Labs CBC & Chem 7: 10/10/24 03:32 10/10/24 03:32 Labs: Abnormal Lab Results - Last 24 Hours (Table) 10/09/24 10/09/24 10/09/24 Range/Units 13:08 19:03 23:43 RBC (4.40-5.60) 10*6/uL Hgb (13.0-17.0) g/dL Hct (39.6-50.0) % MCHC (32.0-37.0) g/dL Lymphocytes # (0.90-5.00) 10*3/uL Sodium (137-145) mmol/L Chloride (98-107) mmol/L BUN (9-20) mg/dL Creatinine (0.66-1.25) mg/dL Glucose (74-99) mg/dL POC Glucose (mg/dL) 171 H 170 H 194 H (70-110) mg/dL Phosphorus (2.5-4.5) mg/dL 10/10/24 10/10/24 10/10/24 Range/Units 03:32 03:32 06:35 RBC 2.99 L (4.40-5.60) 10*6/uL Hgb 8.2 L (13.0-17.0) g/dL Hct 26.6 L (39.6-50.0) % MCHC 30.8 L (32.0-37.0) g/dL Lymphocytes # 0.87 L (0.90-5.00) 10*3/uL Sodium 129 L (137-145) mmol/L Chloride 95 L (98-107) mmol/L BUN 55 H (9-20) mg/dL Creatinine 1.59 H (0.66-1.25) mg/dL Glucose 164 H (74-99) mg/dL POC Glucose (mg/dL) 177 H (70-110) mg/dL Phosphorus 2.4 L (2.5-4.5) mg/dL Assessment and Plan Assessment: 1. Acute kidney injury secondary to ATN secondary to septic shock and vancomycin toxicity. Vancomycin level 49.3 on 09/19/2024. Patient remains oliguric but regular. Started hemodialysis on 09/22/2024. 2. Septic shock secondary to pneumonia and fungemia. Stable now 3. Acute blood loss anemia status post packed RBCs transfusion. Hemoglobin stable. Maintained on Aranesp 4. Volume overload. 5. Chronic hypoxic and hypercapnic respiratory failure, home ventilator dependent. 6. History of cardiac arrest. 8. Status post right BKA. 9. Hyperkalemia associated with severe hyperglycemia. TPN adjusted, improved Plan: Maintain hemodialysis on Saturday schedule Will plan to use heparin with hemodialysis on Saturday Maintained on TPN Continue to monitor electrolytes.
--- NOTE | 2024-10-10 10:16 | FL ---
Exam Date: 10/09/2024 3:06 PM. Modified barium swallow for dysphagia. Consistencies administered: Various consistency of barium. No images were sent to PACS. Please see speech pathology report. DAP: .[id number] DAP mGym2 Gycm2 [facility], , 10/10/2024 10:14 AM
--- NOTE | 2024-10-10 10:52 | P.PN ---
Subjective Progress Note Date: 10/10/24 Principal diagnosis: Acute on chronic hypoxic respiratory failure secondary to bilateral pneumonia secondary to multidrug resistant Pseudomonas aeruginosa., Candidemia/fungemia This is a 49-year-old white male familiar to my service, history of paraplegia, home vent dependent, history of tracheostomy, patient had multiple admissions to the ICU for recurrent episodes of pneumonia and respiratory failure requiring ventilatory support. On his last admission patient was eventually discharged home on a home ventilator, and this was back on 08/04/2024. Patient was discharged home with a PICC line, patient was in the ER yesterday on 08/28 for abnormal labs mostly low potassium and low sodium discharged home however he came back today complaining of shortness of breath, has been ventilator dependent all along. Chest x-ray showed basically bibasilar opacities/atelectasis, doubt pneumonia, the findings in the left lower lobe are chronic. Patient did have previous history of pneumonia involving the left lower lobe and he had multiple bronchoscopies in the past. Bronchial cultures and sputum cultures have been positive in the past for mostly Pseudomonas aeruginosa. Patient was seen in the ER today, and he is already on cefepime for empiric coverage for potential left lower lobe pneumonia, patient had abnormal electrolytes with relatively low sodium low potassium, no leukocytosis, normal renal profile, blood pressure was soft, and he was given fluid boluses. Lactic acid was 2.1, D-dimer is normal, patient was admitted, and this consult was initiated. 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 On 10/03/2024, the patient is clinically unchanged. Remains on propofol at 10 mcg/kg/min. Calm and comfortable. Responsive and awake. Evening was uneventful. Remains on a mechanical ventilator. Assist-control of 24, tidal volume of 400, FiO2 30% with a PEEP of 5. No blood gases from today. Follow-up chest x-ray from today is showing stable findings without any acute interval ch kelvin and the patient continues to have persistent interstitial opacities bilaterally. The patient remains on TPN at rate of 85 cc an hour. Off pressors. White cell count is 6 with hemoglobin 7.1 and a platelet count of 206. BUN 34 with a creatinine of 1.3. Sodium is at 133. On 10/04/2024, there is absolutely no change in the patient's condition. The patient is resting comfortably on propofol low-dose at 10 mcg. He remains on mechanical ventilator, unable to wean him off the mechanical ventilator and is vent dependent with an assist-control mode at rate of 24, tidal volume of 400, FiO2 of 30% and the PEEP of 5. Chest x-ray remains unchanged. The patient is afebrile and hemodynamically stable, completing the course of Eraxis. Remains on TPN for nutritional support rate of 55 cc an hour. Urine output is minimal and undergoing periodic hemodialysis. The white cell count is 5.9, hemoglobin 7.9, BUN is 59 with a creatinine of 1.9. Potassium levels of 4.5. Next hemodialysis session is on 10/05/2024. Patient was seen today on 10/05/2024, remains in the ICU, intubated mechanically ventilated, on assist-control rate of 24 tidal volume 400 FiO2 30% and PEEP of 5. Remains on propofol 10 mcg/kg/min remains on TPN at 85 cc/h remains on Eraxis patient is sedated but he is arousable and he follows simple instructions. However he is profoundly weak not to mention the patient is p araplegic. Labs today show WBC count of 5.9 hemoglobin is 7 electrolytes are relatively normal bicarb is 21 BUN is 79 creatinine 2.61 patient is receiving hemodialysis this morning. Liver enzymes are a bit elevated with bilirubin of 2.7 AST 39 ALT 59 and alkaline phosphatase of 165. Albumin is 2.5. Chest x-ray continues to show left-sided double-lumen dialysis catheter there is also ongoing pulmonary vascular congestion, possible minimal infiltrates. Medications were reviewed patient remains on Eraxis, Peridex, Aranesp, fentanyl patches, heparin subcu every 8 hours, Dilaudid as needed, insulin as per protocol, DuoNeb updraft 4 times daily and as needed, Ativan as needed, presently off norepinephrine, continues to be on Zofran as needed and Protonix, propofol, and he is off antibiotics except for his Eraxis. Seen today on 10/06/2024, remains in the ICU, intubated and mechanically marge tilated, he is on assist-control rate of 24 tidal volume 400 FiO2 30% and PEEP of 5. ABG showed a PO2 of 81 pCO2 48 pH of 7.35. Patient is on norepinephrine at 0.05 mcg/kg/min he has borderline blood pressure requiring norepinephrine this morning, hence I went back and placed the patient on Solu-Cortef which was discontinued few days ago. Remains on Eraxis stopped date will be today. Patient is on TPN at 85 mL/h. He is still intermittently getting hemodialysis. Patient is arousable in spite of being on propofol, follows instructions but he looks chronically ill, frail, and debilitated. WBC count today is 8.0 hemoglobin 7.6 hematocrit 25.6 blood sugar is 331. Renal profile showed BUN of 47 creatinine 1.62 otherwise the rest of the labs were unremarkable. Chest x- ray continues to show small minimal pleural effusion and improved aeration compared to prior studies. Medications will all reviewed on Eraxis, Peridex, Aranesp, fentanyl patches, heparin subcu every 8 hours, Dilaudid as needed, insulin as per protocol, DuoNeb updraft 4 times daily and as needed, Ativan as needed, presently off norepinephrine, continues to be on Zofran as needed and Protonix, propofol, and he is off antibiotics except for his Eraxis. Patient was seen today on 10/07/2024, remains in the ICU, intubated and mechanically ventilated, patient is on assist-control rate of 24 tidal volume 400 FiO2 30% PEEP of 5 ABG showed a pO2 of 93 pCO2 45 pH of 7.33 hence no changes were made with his vent settings. Remains on low-dose propofol at 10 mg/kg/min he is on TPN at 85 cc/h sugars are running high requiring insulin drip he is on 18.32 units/h hence I cut down on his Solu-Cortef to 50 mg IV push every 12 hours. Today he is off norepinephrine was put on hold at 9 PM last night. Patient is off Eraxis off antibiotics, considering the patient is chronically debilitated and chronically ill, patient is ventilator dependent, we are experiencing significant difficulty in placement of this patient. Today he will receive a unit of packed RBCs for hemoglobin of 6.9. WBC count today is 5.2 hemoglobin 6.9 platelets are 167 sodium is low 129 potassium 5.9 BUN 72 creatinine 2.2 patient will be receiving another hemodialysis today. Blood sugar is as high as 632 hence the low sodium is really more of the pseudohyponatremia. Patient was seen today on 10/08/2024, remains in the ICU, intubated and mech anically ventilated. Patient is on assist-control rate 44 tidal volume 400 FiO2 30% and PEEP of 5 patient is arousable, follows simple instructions, seems to be profoundly weak. Remains on TPN, his norepinephrine remains on hold. Blood sugars seem to be better controlled, today I am recommending the Lantus insulin and NovoLog insulin subcu as per protocol/Accu-Cheks. His WBC count is 7 hemoglobin 8.2 hematocrit is 26.4. Platelets are 189. Electrolytes are normal BUN is 51 creatinine 1.48. Patient remains on hemodialysis. Patient remains on Solu-Cortef, I am cutting the dose down to 25 mg IV push every 12 hours, eventually would like to placed on oral Cortef. Patient was seen today on 10/09/2024, remains in the ICU, intubated mechanically ventilated, awake, off propofol, not requiring any pressors at this point, patient remains on assist-control rate of 24 tidal volume 400 FiO2 30% and PEEP of 5 patient is receiving hemodialysis during my evaluation. Remains on TPN at 85 cc/h. Chest x-ray is showing improvement in his bilateral airspace disease. Patient remains on Solu-Cortef, and I changed that to oral 25 mg p.o. twice daily. Labs today showed WBC count of 6.2 hemoglobin 8.7 electrolytes are normal BUN is 79 creatinine 2.02 Patient was seen today on 10/10/2024, remains in the ICU intubated mechanically ventilated, on assist-control rate of 24 tidal volume 400 FiO2 30% PEEP of 5 no ABG has been done today. Patient remains on TPN at 85 cc/h. Patient remains on hemodialysis Saturday and Saturday patient had a swallow evaluation and the recommendation was chopped diet. We have placed the patient yesterday on Cortef orally. Remains on heparin subcu. He is hemodynamically stable, not requiring any pressors. Chest x-ray. Continues to show stable chest. Small pleural effusions noted. WBC count is 5.8 hemoglobin 8.2 electrolytes showed low sodium 129 potassium 3.5 BUN 55 creatinine 1.59 Objective - Vital Signs Vital signs: Vital Signs Temp 98.6 F 10/10/24 08:00 Pulse 100 10/10/24 10:00 Resp 26 H 10/10/24 10:00 BP 153/71 10/10/24 10:00 Pulse Ox 97 10/10/24 10:00 FiO2 30 10/10/24 08:00 Intake & Output 10/09/24 10/10/24 10/10/24 18:59 06:59 18:59 Intake Total 3076 1105 480 Output Total 7330 435 13 Balance -4254 670 467 Weight 91.2 kg Intake: IV 1020 1020 255 TPN 1020 1020 255 Intake, IV Titration 1056 200 Amount Potassium Chloride 20 meq 200 In Water For Injection 1 100ml.bag @ 50 mls/hr IVPB Q2H [facility] Rx#: [id number] Sodium Acetate 50 meq 1056 Sodium Chloride 4Meq/ml Vial 100 meq Calcium Gluconate 0.5 gm Magnesium Sulfate gm 0.5 gm In Amino Acids 5 %/ Dextrose 20 % 1,000 ml @ 85 mls/hr IV .BY DURATION [facility] Rx#:[id number] Oral 25 TPN/PPN 85 TPN 85 Hemodialysis 1000 Output: Urine 30 35 13 Stool 300 400 Hemodialysis 4000 Hemodialysis Net Amount 3000 Other: Voiding Method Indwelling Catheter Indwelling Catheter Indwelling Catheter ABP, PAP, CO, CI - Last Documented Arterial Blood Pressure - Exam GENERAL EXAM: 49-year-old white male intubated mechanically ventilated, tracheostomy in place HEAD: Normocephalic. Tracheostomy is intact. Left IJ hemodialysis catheter is noted. EYES: Normal reaction of pupils, equal size. NOSE: Clear with pink turbinates. THROAT: Tracheostomy tube secured in place. NECK: No masses, no JVD. CHEST: No chest wall deformity. LUNGS: Diminished breath sound bilaterally no crackles rhonchi or wheezes CVS: S1 and S2 normal with no audible murmur, regular rhythm. ABDOMEN: Enterocutaneous fistula over the abdominal wall. No hepatosplenomegaly, normal bowel sounds. SKIN: No rashes, patient is quite edematous CENTRAL NERVOUS SYSTEM: Awake, follows all instructions, generally weak EXTREMITIES: Trace of bipedal edema extensive muscle atrophy. Contractures. There is no peripheral edema. No clubbing, no cyanosis. Peripheral pulses are intact. Right below-knee amputation is noted. - Labs CBC & Chem 7: 10/10/24 03:32 10/10/24 03:32 Labs: Abnormal Lab Results - Last 24 Hours (Table) 10/09/24 10/09/24 10/09/24 Range/Units 13:08 19:03 23:43 RBC (4.40-5.60) 10*6/uL Hgb (13.0-17.0) g/dL Hct (39.6-50.0) % MCHC (32.0-37.0) g/dL Lymphocytes # (0.90-5.00) 10*3/uL Sodium (137-145) mmol/L Chloride (98-107) mmol/L BUN (9-20) mg/dL Creatinine (0.66-1.25) mg/dL Glucose (74-99) mg/dL POC Glucose (mg/dL) 171 H 170 H 194 H (70-110) mg/dL Phosphorus (2.5-4.5) mg/dL 10/10/24 10/10/24 10/10/24 Range/Units 03:32 03:32 06:35 RBC 2.99 L (4.40-5.60) 10*6/uL Hgb 8.2 L (13.0-17.0) g/dL Hct 26.6 L (39.6-50.0) % MCHC 30.8 L (32.0-37.0) g/dL Lymphocytes # 0.87 L (0.90-5.00) 10*3/uL Sodium 129 L (137-145) mmol/L Chloride 95 L (98-107) mmol/L BUN 55 H (9-20) mg/dL Creatinine 1.59 H (0.66-1.25) mg/dL Glucose 164 H (74-99) mg/dL POC Glucose (mg/dL) 177 H (70-110) mg/dL Phosphorus 2.4 L (2.5-4.5) mg/dL Assessment and Plan Assessment: Impression: Acute on chronic hypoxic respiratory failure still intubated and mechanically ventilated, multifactorial but mostly related to multidrug- resistant Pseudomonas aeruginosa pneumonia. Patient had candidemia/Bella parapsilosis group, fully treated with Eraxis x 3 weeks. Septic shock, secondary to above and previously pseudomonal pneumonia, resolved Candidemia with positive yeast in blood cultures has been on treatment for the last 3 weeks receiving Eraxis. This was completed/stopped 10/06/2024.. Follow- up fungal cultures have been negative. Chronic hypoxic and hypercapnic respiratory failure, patient is ventilator dependent, patient has been recently on home ventilator History of severe tracheal stenosis History of tracheostomy History of recurrent pneumonias involving left lower lobe Tracheobronchomalacia History of DVT History of CVA Acute kidney injury/ATN, requiring hemodialysis. History of right below-knee amputation History of asystole/cardiac arrest 2021. 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 Patient is maintained mostly on TPN. Bipedal edema with fluid overload hence patient was placed on Lasix. Recommendation: Continue ventilatory support, patient is chronically ventilated and is ventilator dependent Continue TPN/nutritional support Oral Cortef 25 mg p.o. twice daily Continue hemodialysis, Saturday Continue GI and DVT prophylaxis/Protonix Continue bronchodilators Patient has multiple complex issues and we are having difficulty with placement of this patient as he is ventilatory dependent, he is hemodialysis dependent, he is paraplegic, and no clear-cut idea of how the placement is going to proceed considering his multiple complex issues as noted above. Patient remains relatively critically ill with multiple complex issues to be addressed and now the major concern is difficulty with placement. student services dean is addressing this issue. Critical care time is 32 minutes Overall prognosis remains extremely poor. Time with Patient: Greater than 30
[2024-10-10 11:14] LABS: Glucose,Whole Blood 170 mg/dL (70-110)
[2024-10-10] MEDS: SODIUM ACETATE IV SCH (16:02)
[2024-10-10] MEDS: SODIUM CHLORIDE IV SCH (16:02)
[2024-10-10] MEDS: [UNRECOGNIZED DRUG - OTHER] IV SCH (16:02)
--- NOTE | 2024-10-10 16:14 | P.PN ---
Subjective Progress Note Date: 10/10/24 Principal diagnosis: Reason for follow-up is sepsis and pneumonia/candidemia Patient is a 49-year-old male with a past medical history significant for CVA TIA DVT pneumonia history of complicated Crohn's disease in this patient who did have multiple abdominal surgeries patient also have a tracheostomy has been brought to the hospital with Generalized weakness did have a fever concerning for pneumonia on today's evaluation that is 10/10/2024, patient did have a temperature of 98 F this afternoon the patient remains to be debated on vent FiO2 is currently stable at 30% patient seem to be comfortable no significant change reported by the nursing staff. Patient white count is 5.81, creatinine is 1.59 blood culture repeat remains to be negative Objective - Vital Signs Vital signs: Vital Signs Temp 98.6 F 10/10/24 16:00 Pulse 102 H 10/10/24 16:00 Resp 28 H 10/10/24 16:00 BP 127/53 10/10/24 16:00 Pulse Ox 98 10/10/24 15:00 FiO2 30 10/10/24 16:00 Intake & Output 10/09/24 10/10/24 10/10/24 18:59 06:59 18:59 Intake Total 3076 1105 990 Output Total 7330 435 23 Balance -4254 670 967 Weight 91.2 kg Intake: IV 1020 1020 765 TPN 1020 1020 765 Intake, IV Titration 1056 200 Amount Potassium Chloride 20 meq 200 In Water For Injection 1 100ml.bag @ 50 mls/hr IVPB Q2H [facility] Rx#: [id number] Sodium Acetate 50 meq 1056 Sodium Chloride 4Meq/ml Vial 100 meq Calcium Gluconate 0.5 gm Magnesium Sulfate gm 0.5 gm In Amino Acids 5 %/ Dextrose 20 % 1,000 ml @ 85 mls/hr IV .BY DURATION [facility] Rx#:[id number] Oral 25 TPN/PPN 85 TPN 85 Hemodialysis 1000 Output: Urine 30 35 23 Stool 300 400 Hemodialysis 4000 Hemodialysis Net Amount 3000 Other: Voiding Method Indwelling Catheter Indwelling Catheter Indwelling Catheter ABP, PAP, CO, CI - Last Documented Arterial Blood Pressure - Exam GENERAL DESCRIPTION: Middle-age male intubated on the vent RESPIRATORY SYSTEM: Unlabored breathing , decreased breath sounds at bases HEART: S1 S2 regular rate and rhythm , ABDOMEN: Soft , no tenderness EXTREMITIES: Swelling to the leg - Labs CBC & Chem 7: 10/10/24 03:32 10/10/24 03:32 Labs: Abnormal Lab Results - Last 24 Hours (Table) 10/09/24 10/09/24 10/10/24 Range/Units 19:03 23:43 03:32 RBC (4.40-5.60) 10*6/uL Hgb (13.0-17.0) g/dL Hct (39.6-50.0) % MCHC (32.0-37.0) g/dL Lymphocytes # (0.90-5.00) 10*3/uL Sodium 129 L (137-145) mmol/L Chloride 95 L (98-107) mmol/L BUN 55 H (9-20) mg/dL Creatinine 1.59 H (0.66-1.25) mg/dL Glucose 164 H (74-99) mg/dL POC Glucose (mg/dL) 170 H 194 H (70-110) mg/dL Phosphorus 2.4 L (2.5-4.5) mg/dL 10/10/24 10/10/24 10/10/24 Range/Units 03:32 06:35 11:11 RBC 2.99 L (4.40-5.60) 10*6/uL Hgb 8.2 L (13.0-17.0) g/dL Hct 26.6 L (39.6-50.0) % MCHC 30.8 L (32.0-37.0) g/dL Lymphocytes # 0.87 L (0.90-5.00) 10*3/uL Sodium (137-145) mmol/L Chloride (98-107) mmol/L BUN (9-20) mg/dL Creatinine (0.66-1.25) mg/dL Glucose (74-99) mg/dL POC Glucose (mg/dL) 177 H 170 H (70-110) mg/dL Phosphorus (2.5-4.5) mg/dL Assessment and Plan (1) Pneumonia Current Visit: Yes Status: Acute Code(s): J18.9 - PNEUMONIA, UNSPECIFIED ORGANISM SNOMED Code(s): 193976648 (2) Sepsis Current Visit: Yes Status: Acute Code(s): A41.9 - SEPSIS, UNSPECIFIED [facility] SNOMED Code(s): 58006260 (3) Candidemia Current Visit: Yes Status: Acute Code(s): B37.7 - CANDIDAL SEPSIS SNOMED Code(s): 346498663 Plan: [facility] patient who did have fever tach ycardia elevated lactic acid upon meeting criteria for SIRS/sepsis source likely pneumonia,patient is status post bronchoscopy lavage results currently growing Pseudomonas that is resistant to Avycaz and corynebacterium, which was vancomycin and Zyvox sensitive, patient completed antibiotic therapy for his pneumonia 2patient did have candidemia source is likely left chest wall PICC line which has been discontinued has been sent for the culture central line placed by lumber sorter machine, blood culture repeat on 09/18/2024 positive blood culture repeat 09/22/2024 so far negative. Subsequently patient did continue PICC line and the chest wall catheter was discontinued as repeat blood culture from 09/22/2024 remained to be negative 3patient has completed his course of Eraxis which was discontinued after 10/06/2024 dose, he also have a blood culture done on 10/05/2024 that remains to be negative, currently being monitored closely off antibiotic/antifungal therapy waiting for placement to select specialty as per discussion with nursing staff Dictation was produced using [employer] dictation software. please excuse any grammatical, word or spelling errors. Time with Patient: Less than 30
[2024-10-10 18:00] LABS: Glucose,Whole Blood 170 mg/dL (70-110)
[2024-10-10] MEDS: IPRATROPIUM-ALBUTEROL 3 ML NEB INHALATION SCH (22:51)
[2024-10-10 23:22] LABS: Glucose,Whole Blood 158 mg/dL (70-110)
--- NOTE | 2024-10-11 05:13 | PN ---
PROGRESS NOTE DATE OF SERVICE: 10/10/2024 HISTORY: This a 49-year-old gentleman, who was admitted with respiratory problems, bibasilar pneumonia, and multiple complex medical history, being closely monitored in ICU. The patient also had candidemia. The patient received antifungal treatment. The patient is on mechanical ventilation with assist control. The patient will be closely monitored. PAST MEDICAL HISTORY: None noted. CURRENT MEDICATIONS: Reviewed. PHYSICAL EXAMINATION: VITAL SIGNS: Pulse is 103. blood pressure 140/60, and respirations 26 . HEENT: Conjunctivae normal. CARDIOVASCULAR: S1, S2. RESPIRATIONS: Few scattered rhonchi. ABDOMEN: Soft. LABORATORY DATA: Sodium is 120. ASSESSMENT: 1. Bilateral pneumonia with multiple acute hypoxic respiratory failure, on mechanical ventilation. 2. Candidemia. 3. Hyponatremia. 4. Renal failure. 5. Septic shock. 6. Multiple complex medical issues. I recommend to continue current management and monitor closely in ICU. Sodium is 129. We will continue with TPN. Repeat labs. Prognosis guarded because of multiple complex medical issues. Further recommendations to follow. Chest x-ray reviewed. MMODL / IJN: [id number] /
[2024-10-11 06:00] LABS: Basophils # (A) 0.02 10*3/uL (0.00-0.10); Basophils % (A) 0.4 %; Eosinophils # (A) 0.10 10*3/uL (0.04-0.35); Eosinophils % (A) 1.8 %; HCT 28.1 % (39.6-50.0); HGB 8.9 g/dL (13.0-17.0); Lymphocytes # (A) 0.99 10*3/uL (0.90-5.00); Lymphocytes % (A) 18.2 %; MCH 28.3 pg (27.0-32.0); MCHC 31.7 g/dL (32.0-37.0); MCV 89.2 fL (80.0-97.0); Monocytes # (A) 0.58 10*3/uL (0.20-1.00); Monocytes % (A) 10.7 %; Neutrophils # (A) 3.74 10*3/uL (1.80-7.70); Neutrophils % (A) 68.7 %; Platelet Count 197 10*3/uL (140-440); RBC 3.15 10*6/uL (4.40-5.60); RDW 18.5 % (11.5-14.5); WBC 5.44 10*3/uL (4.50-10.00)
[2024-10-11 06:02] LABS: Glucose,Whole Blood 150 mg/dL (70-110)
[2024-10-11 06:29] LABS: African American GFR (CKD) 35 (>60 ml/min/1.73 sqM); Anion Gap 12 mmol/L; Blood Urea Nitrogen 84 mg/dL (9-20); Calcium 9.7 mg/dL (8.4-10.2); Carbon Dioxide 23 mmol/L (22-30); Chloride 96 mmol/L (98-107); Glucose 152 mg/dL (74-99); Magnesium 2.1 mg/dL (1.6-2.3); Non-African American GFR(CKD) 30 (>60 ml/min/1.73 sqM); Potassium 5.0 mmol/L (3.5-5.1); Sodium 131 mmol/L (137-145)
--- NOTE | 2024-10-11 07:38 | XR ---
EXAMINATION TYPE: XR chest 1V portable DATE OF EXAM: 10/11/2024 5:44 AM COMPARISON: 10/10/2024 CLINICAL INDICATION: Male, 49 years old with history of chf, FINDINGS: Indwelling tubes and catheters are unchanged. No change in bibasilar opacities. Stable appearance of the cardio-mediastinal structures at this time. IMPRESSION: 1. Stable portable chest. Clinical correlation and follow up until resolution is recommended. [facility], , 10/11/2024 7:36 AM
--- NOTE | 2024-10-11 09:50 | P.PN ---
Subjective Progress Note Date: 10/11/24 Patient is seen for follow-up for acute kidney injury. Patient remains on the vent. He is awake. Started hemodialysis on 09/22/2024 for volume overload and worsening acute kidney injury Patient remains oliguric. FiO2 at 30% No significant issues today. he is c/o hip pain, pain meds given. plan for HD tomorrow Objective - Vital Signs Vital signs: Vital Signs Temp 98.3 F 10/11/24 08:00 Pulse 102 H 10/11/24 09:23 Resp 26 H 10/11/24 09:00 BP 159/70 10/11/24 09:00 Pulse Ox 97 10/11/24 09:00 FiO2 30 10/11/24 09:06 Intake & Output 10/10/24 10/11/24 10/11/24 18:59 06:59 18:59 Intake Total 1160 1020 255 Output Total 678 530 10 Balance 482 490 245 Weight 91 kg Intake: IV 935 1020 255 TPN 935 1020 255 Intake, IV Titration 200 Amount Potassium Chloride 20 meq 200 In Water For Injection 1 100ml.bag @ 50 mls/hr IVPB Q2H [facility] Rx#: [id number] Oral 25 Output: Drainage 650 Medial Abdomen 650 Urine 28 30 10 Stool 500 Other: Voiding Method Indwelling Catheter Indwelling Catheter Indwelling Catheter ABP, PAP, CO, CI - Last Documented Arterial Blood Pressure - Exam Patient is on the vent he is awake. Examination of the heart S1 and S2 Tracheostomy noted Examination of the lungs bilateral breath sounds are heard Abdomen is distended Examination of lower extremities shows right BKA and 2+ edema in the left leg - Labs CBC & Chem 7: 10/11/24 05:44 10/11/24 05:44 Labs: Abnormal Lab Results - Last 24 Hours (Table) 10/10/24 10/10/24 10/10/24 Range/Units 11:11 17:59 23:19 RBC (4.40-5.60) 10*6/uL Hgb (13.0-17.0) g/dL Hct (39.6-50.0) % MCHC (32.0-37.0) g/dL Sodium (137-145) mmol/L Chloride (98-107) mmol/L BUN (9-20) mg/dL Creatinine (0.66-1.25) mg/dL Glucose (74-99) mg/dL POC Glucose (mg/dL) 170 H 170 H 158 H (70-110) mg/dL 10/11/24 10/11/24 10/11/24 Range/Units 05:44 05:44 05:50 RBC 3.15 L (4.40-5.60) 10*6/uL Hgb 8.9 L (13.0-17.0) g/dL Hct 28.1 L (39.6-50.0) % MCHC 31.7 L (32.0-37.0) g/dL Sodium 131 L (137-145) mmol/L Chloride 96 L (98-107) mmol/L BUN 84 H (9-20) mg/dL Creatinine 2.44 H (0.66-1.25) mg/dL Glucose 152 H (74-99) mg/dL POC Glucose (mg/dL) 150 H (70-110) mg/dL Microbiology - Last 24 Hours (Table) 10/05/24 10:29 Blood Culture - Final Blood Assessment and Plan Assessment: 1. Acute kidney injury secondary to ATN secondary to septic shock and vancomycin toxicity. Vancomycin level 49.3 on 09/19/2024. Patient remains oliguric but regular. Started hemodialysis on 09/22/2024. 2. Septic shock secondary to pneumonia and fungemia. Stable now 3. Acute blood loss anemia status post packed RBCs transfusion. Hemoglobin stable. Maintained on Aranesp 4. Volume overload. 5. Chronic hypoxic and hypercapnic respiratory failure, home ventilator dependent. 6. History of cardiac arrest. 8. Status post right BKA. 9. Hyperkalemia associated with severe hyperglycemia. TPN adjusted, improved Plan: Maintain hemodialysis on Saturday schedule Will plan to use heparin with hemodialysis on Saturday Maintained on TPN Continue to monitor electrolytes.
--- NOTE | 2024-10-11 10:26 | P.PN ---
Subjective Progress Note Date: 10/11/24 Principal diagnosis: Acute on chronic hypoxic respiratory failure secondary to bilateral pneumonia secondary to multidrug resistant Pseudomonas aeruginosa., Candidemia/fungemia This is a 49-year-old white male familiar to my service, history of paraplegia, home vent dependent, history of tracheostomy, patient had multiple admissions to the ICU for recurrent episodes of pneumonia and respiratory failure requiring ventilatory support. On his last admission patient was eventually discharged home on a home ventilator, and this was back on 08/04/2024. Patient was discharged home with a PICC line, patient was in the ER yesterday on 08/28 for abnormal labs mostly low potassium and low sodium discharged home however he came back today complaining of shortness of breath, has been ventilator dependent all along. Chest x-ray showed basically bibasilar opacities/atelectasis, doubt pneumonia, the findings in the left lower lobe are chronic. Patient did have previous history of pneumonia involving the left lower lobe and he had multiple bronchoscopies in the past. Bronchial cultures and sputum cultures have been positive in the past for mostly Pseudomonas aeruginosa. Patient was seen in the ER today, and he is already on cefepime for empiric coverage for potential left lower lobe pneumonia, patient had abnormal electrolytes with relatively low sodium low potassium, no leukocytosis, normal renal profile, blood pressure was soft, and he was given fluid boluses. Lactic acid was 2.1, D-dimer is normal, patient was admitted, and this consult was initiated. 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 On 10/03/2024, the patient is clinically unchanged. Remains on propofol at 10 mcg/kg/min. Calm and comfortable. Responsive and awake. Evening was uneventful. Remains on a mechanical ventilator. Assist-control of 24, tidal volume of 400, FiO2 30% with a PEEP of 5. No blood gases from today. Follow-up chest x-ray from today is showing stable findings without any acute interval ch kelvin and the patient continues to have persistent interstitial opacities bilaterally. The patient remains on TPN at rate of 85 cc an hour. Off pressors. White cell count is 6 with hemoglobin 7.1 and a platelet count of 206. BUN 34 with a creatinine of 1.3. Sodium is at 133. On 10/04/2024, there is absolutely no change in the patient's condition. The patient is resting comfortably on propofol low-dose at 10 mcg. He remains on mechanical ventilator, unable to wean him off the mechanical ventilator and is vent dependent with an assist-control mode at rate of 24, tidal volume of 400, FiO2 of 30% and the PEEP of 5. Chest x-ray remains unchanged. The patient is afebrile and hemodynamically stable, completing the course of Eraxis. Remains on TPN for nutritional support rate of 55 cc an hour. Urine output is minimal and undergoing periodic hemodialysis. The white cell count is 5.9, hemoglobin 7.9, BUN is 59 with a creatinine of 1.9. Potassium levels of 4.5. Next hemodialysis session is on 10/05/2024. Patient was seen today on 10/05/2024, remains in the ICU, intubated mechanically ventilated, on assist-control rate of 24 tidal volume 400 FiO2 30% and PEEP of 5. Remains on propofol 10 mcg/kg/min remains on TPN at 85 cc/h remains on Eraxis patient is sedated but he is arousable and he follows simple instructions. However he is profoundly weak not to mention the patient is p araplegic. Labs today show WBC count of 5.9 hemoglobin is 7 electrolytes are relatively normal bicarb is 21 BUN is 79 creatinine 2.61 patient is receiving hemodialysis this morning. Liver enzymes are a bit elevated with bilirubin of 2.7 AST 39 ALT 59 and alkaline phosphatase of 165. Albumin is 2.5. Chest x-ray continues to show left-sided double-lumen dialysis catheter there is also ongoing pulmonary vascular congestion, possible minimal infiltrates. Medications were reviewed patient remains on Eraxis, Peridex, Aranesp, fentanyl patches, heparin subcu every 8 hours, Dilaudid as needed, insulin as per protocol, DuoNeb updraft 4 times daily and as needed, Ativan as needed, presently off norepinephrine, continues to be on Zofran as needed and Protonix, propofol, and he is off antibiotics except for his Eraxis. Seen today on 10/06/2024, remains in the ICU, intubated and mechanically marge tilated, he is on assist-control rate of 24 tidal volume 400 FiO2 30% and PEEP of 5. ABG showed a PO2 of 81 pCO2 48 pH of 7.35. Patient is on norepinephrine at 0.05 mcg/kg/min he has borderline blood pressure requiring norepinephrine this morning, hence I went back and placed the patient on Solu-Cortef which was discontinued few days ago. Remains on Eraxis stopped date will be today. Patient is on TPN at 85 mL/h. He is still intermittently getting hemodialysis. Patient is arousable in spite of being on propofol, follows instructions but he looks chronically ill, frail, and debilitated. WBC count today is 8.0 hemoglobin 7.6 hematocrit 25.6 blood sugar is 331. Renal profile showed BUN of 47 creatinine 1.62 otherwise the rest of the labs were unremarkable. Chest x- ray continues to show small minimal pleural effusion and improved aeration compared to prior studies. Medications will all reviewed on Eraxis, Peridex, Aranesp, fentanyl patches, heparin subcu every 8 hours, Dilaudid as needed, insulin as per protocol, DuoNeb updraft 4 times daily and as needed, Ativan as needed, presently off norepinephrine, continues to be on Zofran as needed and Protonix, propofol, and he is off antibiotics except for his Eraxis. Patient was seen today on 10/07/2024, remains in the ICU, intubated and mechanically ventilated, patient is on assist-control rate of 24 tidal volume 400 FiO2 30% PEEP of 5 ABG showed a pO2 of 93 pCO2 45 pH of 7.33 hence no changes were made with his vent settings. Remains on low-dose propofol at 10 mg/kg/min he is on TPN at 85 cc/h sugars are running high requiring insulin drip he is on 18.32 units/h hence I cut down on his Solu-Cortef to 50 mg IV push every 12 hours. Today he is off norepinephrine was put on hold at 9 PM last night. Patient is off Eraxis off antibiotics, considering the patient is chronically debilitated and chronically ill, patient is ventilator dependent, we are experiencing significant difficulty in placement of this patient. Today he will receive a unit of packed RBCs for hemoglobin of 6.9. WBC count today is 5.2 hemoglobin 6.9 platelets are 167 sodium is low 129 potassium 5.9 BUN 72 creatinine 2.2 patient will be receiving another hemodialysis today. Blood sugar is as high as 632 hence the low sodium is really more of the pseudohyponatremia. Patient was seen today on 10/08/2024, remains in the ICU, intubated and mech anically ventilated. Patient is on assist-control rate 44 tidal volume 400 FiO2 30% and PEEP of 5 patient is arousable, follows simple instructions, seems to be profoundly weak. Remains on TPN, his norepinephrine remains on hold. Blood sugars seem to be better controlled, today I am recommending the Lantus insulin and NovoLog insulin subcu as per protocol/Accu-Cheks. His WBC count is 7 hemoglobin 8.2 hematocrit is 26.4. Platelets are 189. Electrolytes are normal BUN is 51 creatinine 1.48. Patient remains on hemodialysis. Patient remains on Solu-Cortef, I am cutting the dose down to 25 mg IV push every 12 hours, eventually would like to placed on oral Cortef. Patient was seen today on 10/09/2024, remains in the ICU, intubated mechanically ventilated, awake, off propofol, not requiring any pressors at this point, patient remains on assist-control rate of 24 tidal volume 400 FiO2 30% and PEEP of 5 patient is receiving hemodialysis during my evaluation. Remains on TPN at 85 cc/h. Chest x-ray is showing improvement in his bilateral airspace disease. Patient remains on Solu-Cortef, and I changed that to oral 25 mg p.o. twice daily. Labs today showed WBC count of 6.2 hemoglobin 8.7 electrolytes are normal BUN is 79 creatinine 2.02 Patient was seen today on 10/10/2024, remains in the ICU intubated mechanically ventilated, on assist-control rate of 24 tidal volume 400 FiO2 30% PEEP of 5 no ABG has been done today. Patient remains on TPN at 85 cc/h. Patient remains on hemodialysis Saturday and Saturday patient had a swallow evaluation and the recommendation was chopped diet. We have placed the patient yesterday on Cortef orally. Remains on heparin subcu. He is hemodynamically stable, not requiring any pressors. Chest x-ray. Continues to show stable chest. Small pleural effusions noted. WBC count is 5.8 hemoglobin 8.2 electrolytes showed low sodium 129 potassium 3.5 BUN 55 creatinine 1.59 Patient was seen today on 10/11/2024, patient remains in the ICU intubated mechanically ventilated, on assist-control rate 24 with tidal volume 400 FiO2 30% PEEP of 5 patient is resting, he is not in any distress he is not requiring any pressors TPN is at 85 cc/h. CBC is basically unremarkable hemoglobin is 8.9 electrolytes are normal BUN is 84 creatinine 2.44. Clinically I believe this is the best I have seen this patient since his last admission. Chest x-ray showed minimal basilar atelectasis especially at the left base. This is relatively chronic. Objective - Vital Signs Vital signs: Vital Signs Temp 98.3 F 10/11/24 08:00 Pulse 102 H 10/11/24 09:23 Resp 26 H 10/11/24 09:00 BP 159/70 10/11/24 09:00 Pulse Ox 97 10/11/24 09:00 FiO2 30 10/11/24 09:06 Intake & Output 10/10/24 10/11/24 10/11/24 18:59 06:59 18:59 Intake Total 1160 1020 255 Output Total 678 530 10 Balance 482 490 245 Weight 91 kg Intake: IV 935 1020 255 TPN 935 1020 255 Intake, IV Titration 200 Amount Potassium Chloride 20 meq 200 In Water For Injection 1 100ml.bag @ 50 mls/hr IVPB Q2H [facility] Rx#: [id number] Oral 25 Output: Drainage 650 Medial Abdomen 650 Urine 28 30 10 Stool 500 Other: Voiding Method Indwelling Catheter Indwelling Catheter Indwelling Catheter ABP, PAP, CO, CI - Last Documented Arterial Blood Pressure - Exam GENERAL EXAM: 49-year-old white male intubated mechanically ventilated, tracheostomy in place HEAD: Normocephalic. Tracheostomy is intact. Left IJ hemodialysis catheter is noted. EYES: Normal reaction of pupils, equal size. NOSE: Clear with pink turbinates. THROAT: Tracheostomy tube secured in place. NECK: No masses, no JVD. CHEST: No chest wall deformity. LUNGS: Diminished breath sound bilaterally no crackles rhonchi or wheezes CVS: S1 and S2 normal with no audible murmur, regular rhythm. ABDOMEN: Enterocutaneous fistula over the abdominal wall. No hepatosplenomegaly, normal bowel sounds. SKIN: No rashes, patient is quite edematous CENTRAL NERVOUS SYSTEM: Awake, follows all instructions, generally weak EXTREMITIES: Trace of bipedal edema extensive muscle atrophy. Contractures. There is no peripheral edema. No clubbing, no cyanosis. Peripheral pulses are intact. Right below-knee amputation is noted. - Labs CBC & Chem 7: 10/11/24 05:44 10/11/24 05:44 Labs: Abnormal Lab Results - Last 24 Hours (Table) 10/10/24 10/10/24 10/10/24 Range/Units 11:11 17:59 23:19 RBC (4.40-5.60) 10*6/uL Hgb (13.0-17.0) g/dL Hct (39.6-50.0) % MCHC (32.0-37.0) g/dL Sodium (137-145) mmol/L Chloride (98-107) mmol/L BUN (9-20) mg/dL Creatinine (0.66-1.25) mg/dL Glucose (74-99) mg/dL POC Glucose (mg/dL) 170 H 170 H 158 H (70-110) mg/dL 10/11/24 10/11/24 10/11/24 Range/Units 05:44 05:44 05:50 RBC 3.15 L (4.40-5.60) 10*6/uL Hgb 8.9 L (13.0-17.0) g/dL Hct 28.1 L (39.6-50.0) % MCHC 31.7 L (32.0-37.0) g/dL Sodium 131 L (137-145) mmol/L Chloride 96 L (98-107) mmol/L BUN 84 H (9-20) mg/dL Creatinine 2.44 H (0.66-1.25) mg/dL Glucose 152 H (74-99) mg/dL POC Glucose (mg/dL) 150 H (70-110) mg/dL Microbiology - Last 24 Hours (Table) 10/05/24 10:29 Blood Culture - Final Blood Assessment and Plan Assessment: Impression: Acute on chronic hypoxic respiratory failure still intubated and mechanically ventilated, multifactorial but mostly related to multidrug- resistant Pseudomonas aeruginosa pneumonia. Patient had candidemia/Bella parapsilosis group, fully treated with Eraxis x 3 weeks. Septic shock, secondary to above and previously pseudomonal pneumonia, resolved Candidemia with positive yeast in blood cultures has been on treatment for the last 3 weeks receiving Eraxis. This was completed/stopped 10/06/2024.. Follow- up fungal cultures have been negative. Chronic hypoxic and hypercapnic respiratory failure, patient is ventilator dependent, patient has been recently on home ventilator History of severe tracheal stenosis History of tracheostomy History of recurrent pneumonias involving left lower lobe Tracheobronchomalacia History of DVT History of CVA Acute kidney injury/ATN, requiring hemodialysis. History of right below-knee amputation History of asystole/cardiac arrest 2021. 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 Patient is maintained mostly on TPN. Bipedal edema with fluid overload hence patient was placed on Lasix. Recommendation: Continue ventilatory support, patient is chronically ventilated and is ventilator dependent Continue TPN/nutritional support Continue hemodialysis, Saturday Continue GI and DVT prophylaxis/Protonix, and continue Cortef orally Continue bronchodilators Patient will need placement hopefully we can get him to an ECF that could handle tracheostomy and hemodialysis. Otherwise not much to be added today. Long-term prognosis remains poor. Time with Patient: Less than 30
[2024-10-11 11:39] LABS: Glucose,Whole Blood 160 mg/dL (70-110)
--- NOTE | 2024-10-11 15:02 | P.PN ---
Subjective Progress Note Date: 10/11/24 Principal diagnosis: Reason for follow-up is sepsis and pneumonia/candidemia Patient is a 49-year-old male with a past medical history significant for CVA TIA DVT pneumonia history of complicated Crohn's disease in this patient who did have multiple abdominal surgeries patient also have a tracheostomy has been brought to the hospital with Generalized weakness did have a fever concerning for pneumonia on today's evaluation that is 10/11/2024, Patient is afebrile patient is currently on vent through the trach FiO2 stable at 30% no significant purulent secretion through the ET not requiring any pressor support still having low urine output plan is for dialysis tomorrow. Patient white count is 5.44, creatinine is 2.44 blood culture repeat has been negative Objective - Vital Signs Vital signs: Vital Signs Temp 98.1 F 10/11/24 12:00 Pulse 96 10/11/24 14:00 Resp 24 10/11/24 14:00 BP 134/68 10/11/24 14:00 Pulse Ox 97 10/11/24 14:00 FiO2 30 10/11/24 12:31 Intake & Output 10/10/24 10/11/24 10/11/24 18:59 06:59 18:59 Intake Total 1160 1020 705 Output Total 678 530 20 Balance 482 490 685 Weight 91 kg Intake: IV 935 1020 680 TPN 935 1020 680 Intake, IV Titration 200 Amount Potassium Chloride 20 meq 200 In Water For Injection 1 100ml.bag @ 50 mls/hr IVPB Q2H [facility] Rx#: [id number] Oral 25 25 Output: Drainage 650 Medial Abdomen 650 Urine 28 30 20 Stool 500 Other: Voiding Method Indwelling Catheter Indwelling Catheter Indwelling Catheter ABP, PAP, CO, CI - Last Documented Arterial Blood Pressure - Exam GENERAL DESCRIPTION: Middle-age male intubated on the vent RESPIRATORY SYSTEM: Unlabored breathing , decreased breath sounds at bases HEART: S1 S2 regular rate and rhythm , ABDOMEN: Soft , no tenderness EXTREMITIES: Swelling to the leg - Labs CBC & Chem 7: 10/11/24 05:44 10/11/24 11:40 Labs: Abnormal Lab Results - Last 24 Hours (Table) 10/10/24 10/10/24 10/11/24 Range/Units 17:59 23:19 05:44 RBC (4.40-5.60) 10*6/uL Hgb (13.0-17.0) g/dL Hct (39.6-50.0) % MCHC (32.0-37.0) g/dL Sodium 131 L (137-145) mmol/L Chloride 96 L (98-107) mmol/L BUN 84 H (9-20) mg/dL Creatinine 2.44 H (0.66-1.25) mg/dL Glucose 152 H (74-99) mg/dL POC Glucose (mg/dL) 170 H 158 H (70-110) mg/dL 10/11/24 10/11/24 10/11/24 Range/Units 05:44 05:50 11:36 RBC 3.15 L (4.40-5.60) 10*6/uL Hgb 8.9 L (13.0-17.0) g/dL Hct 28.1 L (39.6-50.0) % MCHC 31.7 L (32.0-37.0) g/dL Sodium (137-145) mmol/L Chloride (98-107) mmol/L BUN (9-20) mg/dL Creatinine (0.66-1.25) mg/dL Glucose (74-99) mg/dL POC Glucose (mg/dL) 150 H 160 H (70-110) mg/dL Microbiology - Last 24 Hours (Table) 10/05/24 10:29 Blood Culture - Final Blood Assessment and Plan (1) Pneumonia Current Visit: Yes Status: Acute Code(s): J18.9 - PNEUMONIA, UNSPECIFIED ORGANISM SNOMED Code(s): 976073403 (2) Sepsis Current Visit: Yes Status: Acute Code(s): A41.9 - SEPSIS, UNSPECIFIED OR GANISM SNOMED Code(s): 62629437 (3) Candidemia Current Visit: Yes Status: Acute Code(s): B37.7 - CANDIDAL SEPSIS SNOMED Code(s): 235782463 Plan: 1patient is a hospital with sepsis in this patient who did have fever ta chycardia elevated lactic acid upon meeting criteria for SIRS/sepsis source likely pneumonia,patient is status post bronchoscopy lavage results currently growing Pseudomonas that is resistant to Avycaz and corynebacterium, which was vancomycin and Zyvox sensitive, patient completed antibiotic therapy for his pneumonia 2patient did have candidemia source is likely left chest wall PICC line which h as been discontinued has been sent for the culture central line placed by stock sorter, blood culture repeat on 09/18/2024 positive blood culture repeat 09/22/2024 so far negative. Subsequently patient did continue PICC line and the chest wall catheter was discontinued as repeat blood culture from 09/22/2024 remained to be negative 3patient has completed his course of Eraxis which was discontinued after 10/06/2024 dose, he also have a blood culture done on 10/05/2024 that remains to be negative, 4patient will be monitored closely off antibiotic/antifungal therapy waiting for placement to select specialty. Dictation was produced using [employer] dictation software. please excuse any grammatical, word or spelling errors.
--- NOTE | 2024-10-11 15:34 | PN ---
PROGRESS NOTE DATE OF SERVICE: 10/11/2024 SUBJECTIVE: This is a 49-year-old gentleman, who was admitted with bilateral pneumonia and multiple other complex medical issues, remained on mechanical ventilation. The chest x-ray, which I reviewed personally still shows some bilateral lesions. The patient is on empiric antibiotics. The patient is slightly more alert today. PAST MEDICAL HISTORY: Reviewed. REVIEW OF SYSTEMS: Could not be taken. CURRENT MEDICATIONS: Reviewed. PHYSICAL EXAMINATION: VITAL SIGNS: Pulse is 102, blood pressure 140/80, respirations 24. The vent settings are noted. HEENT: Conjunctivae normal. NECK: No jugular venous distention. RESPIRATIONS: A few scattered rhonchi. CARDIOVASCULAR: S1 and S2. ABDOMEN: Soft. LABORATORY DATA: Hemoglobin 8.9, sodium 131, and creatinine is 2.4. ASSESSMENT: 1. Bilateral pneumonia with multiple acute hypoxic respiratory failure, on mechanical ventilation. 2. Candidemia. 3. Hyponatremia. 4. Renal failure. 5. Septic shock. 6. Multiple complex medical issues. RECOMMENDATIONS: Recommend to continue current management and continue symptomatic treatment with antibiotics. Continue with the current medications, TPN. Monitor lytes closely. Potassium supplementation. Magnesium supplementation. Repeat labs. Guarded prognosis. Further recommendations to follow. MMODL / IJN: [id number] /
[2024-10-11] MEDS: [UNRECOGNIZED DRUG - OTHER] IV SCH (17:00)
[2024-10-11] MEDS: SODIUM ACETATE IV SCH (17:00)
[2024-10-11] MEDS: SODIUM CHLORIDE IV SCH (17:00)
[2024-10-11 17:41] LABS: Glucose,Whole Blood 196 mg/dL (70-110)
[2024-10-11 23:48] LABS: Glucose,Whole Blood 156 mg/dL (70-110)
[2024-10-12 05:29] LABS: Glucose,Whole Blood 165 mg/dL (70-110)
[2024-10-12 07:07] LABS: African American GFR (CKD) 29 (>60 ml/min/1.73 sqM); Anion Gap 12 mmol/L; Calcium 9.2 mg/dL (8.4-10.2); Carbon Dioxide 23 mmol/L (22-30); Chloride 101 mmol/L (98-107); Glucose 155 mg/dL (74-99); Magnesium 2.0 mg/dL (1.6-2.3); Non-African American GFR(CKD) 25 (>60 ml/min/1.73 sqM); Potassium 5.1 mmol/L (3.5-5.1); Sodium 136 mmol/L (137-145)
[2024-10-12 07:31] LABS: Blood Urea Nitrogen 108 mg/dL (9-20)
--- NOTE | 2024-10-12 08:04 | XR ---
EXAMINATION TYPE: XR chest 1V portable DATE OF EXAM: 10/12/2024 5:31 AM COMPARISON: 10/11/2024 CLINICAL INDICATION: Male, 49 years old with history of Mechanical ventilation, FINDINGS: Indwelling tubes and catheters are unchanged. No change in bibasilar opacities. Stable appearance of the cardio-mediastinal structures at this time. Pleural effusion unchanged. IMPRESSION: 1. Stable portable chest. Clinical correlation and follow up until resolution is recommended. [facility], , 10/12/2024 8:02 AM
[2024-10-12 09:09] LABS: Basophils # (A) 0.03 10*3/uL (0.00-0.10); Basophils % (A) 0.7 %; Eosinophils # (A) 0.10 10*3/uL (0.04-0.35); Eosinophils % (A) 2.2 %; HCT 25.1 % (39.6-50.0); HGB 8.1 g/dL (13.0-17.0); Lymphocytes # (A) 1.02 10*3/uL (0.90-5.00); Lymphocytes % (A) 22.4 %; MCH 28.0 pg (27.0-32.0); MCHC 32.3 g/dL (32.0-37.0); MCV 86.9 fL (80.0-97.0); Monocytes # (A) 0.39 10*3/uL (0.20-1.00); Monocytes % (A) 8.6 %; Neutrophils # (A) 2.94 10*3/uL (1.80-7.70); Neutrophils % (A) 64.6 %; Platelet Count 141 10*3/uL (140-440); RBC 2.89 10*6/uL (4.40-5.60); RDW 18.4 % (11.5-14.5); WBC 4.55 10*3/uL (4.50-10.00)
--- NOTE | 2024-10-12 11:36 | P.PN ---
Subjective Progress Note Date: 10/12/24 Principal diagnosis: Pneumonia. This is a 49-year-old white male familiar to my service, history of paraplegia, home vent dependent, history of tracheostomy, patient had multiple admissions to the ICU for recurrent episodes of pneumonia and respiratory failure requiring ventilatory support. On his last admission patient was eventually discharged home on a home ventilator, and this was back on 08/04/2024. Patient was discharged home with a PICC line, patient was in the ER yesterday on 08/28 for abnormal labs mostly low potassium and low sodium discharged home however he cam e back today complaining of shortness of breath, has been ventilator dependent all along. Chest x-ray showed basically bibasilar opacities/atelectasis, doubt pneumonia, the findings in the left lower lobe are chronic. Patient did have previous history of pneumonia involving the left lower lobe and he had multiple bronchoscopies in the past. Bronchial cultures and sputum cultures have been positive in the past for mostly Pseudomonas aeruginosa. Patient was seen in the ER today, and he is already on cefepime for empiric coverage for potential left lower lobe pneumonia, patient had abnormal electrolytes with relatively low sodium low potassium, no leukocytosis, normal renal profile, blood pressure was soft, and he was given fluid boluses. Lactic acid was 2.1, D-dimer is normal, patient was admitted, and this consult was initiated. 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 Patient was seen today on 08/30/2024, patient continues to have intermittent episodes of fever with Tmax of 102, patient required norepinephrine and he remains on norepinephrine at 0.04 mcg/kg/min remains on LR at 130 cc/h remains on his home ventilator at tidal volume of 450 rate of 20 FiO2 45% and PEEP of 5. Seems comfortable, not in distress, his WBC is 3.5 hemoglobin 10.0 electrolytes are normal renal profile is normal potassium is borderline low. Patient remains on cefepime, vancomycin was added because of his previous history of MRSA, and is on cefepime for previous history of pseudomonal infection and now that the patient may be septic it is more of a reason to broaden the spectrum of antibiotics coverage with cefepime and vancomycin. Sputum cultures and blood cultures are pending. Patient does have history of pseudomonal and history of MRSA infections, and I discontinued his Zithromax today replace Zithromax with vancomycin. Viral screen is negative Legionella antigen is negative. Chest x- ray is relatively unchanged continues to show bibasilar opacities atelectasis/pneumonia. Progress note dated August 31, 2024. The patient is seen today in room 252. The patient was admitted a couple days ago, to the intensive care unit. The patient is currently on mechanical ventilator, actually his home ventilator. He is on volume assist-control, rate 20, tidal volume 450, FiO2 45% PEEP of 5. The patient is getting lactated Ringer's at 130 cc an hour, TPN at 91 cc an hour, norepinephrine at 8 mcg/min. Doppler of the left upper extremity was negative. He continues on Zerbaxa, and vancomycin. We will check a procalcitonin level. Cultures thus far are negative. He does have a previous history of methicillin-resistant Staph aureus infection, and pseudomonal infections. White count was 2.21, hemoglobin 9.3, hematocrit 32, platelet count 1 61,000. D-dimer was 5.78. Sodium 132, potassium 4.3, chlorides 106, CO2 21, BUN 18, creatinine 0.28. Glucose was 141. Calcium 7.8. C. difficile study was negative. Urine Legionella antigen was negative. Microbiologic studies are currently negative. Chest x-ray shows bibasilar airspace opacities, possibly consistent with pneumonia. 09/01/24 - The patient is seen today in room 252. Admitted to the hospital and the intensive care unit on 08/29/2024. The patient is currently on mechanical ventilator, his one from home. He is on volume assist control, rate of 20, tidal volume of 450, FiO2 45% and PEEP of 5. He currently has LR running at 50 cc/h, TPN at 91 cc/h, Zerbaxa and tobramycin. Chest Xray done this morning showed stable airspace opacities. Cultures are positive for pseudomonas aeruginosa, awaiting sensitivities. WBCs 2.69, Hgb 8.9, Hct 31.5, PLT 153, Na 135, K 3.4, Cl 109, HCO3 19, BUN 22, Cr 0.34, Phos 2.4. 09/02/24 - He is seen today in room 252. Admitted to the hospital and ICU on 08/29/24. He continues on mechanical ventilator, his one from home. He remaines on volume assist control, rate of 20, tidal volume of 450, FiO2 45% and PEEP of 5. He continues to have LR running at 50 cc/h, TPN at 91 cc/h, norepinephrine at 0.13 mcg/kg/min, Zebraxa and Tobramycin. Chest XRay this morning showed stable airspace opacities. Continue to await sensitivity of pseudomonas sputum culture. Lab work shows WBCs 3.64, Hgb 9.7, Hct 33.5, PLT 130, Na 133, K 3.9, bicarb 21, BUN 23, Cr 0.36, Ca 7.8, Mg 2.4, Albumin 2.3. 09/03/24 - He is seen in room 252. Admitted to the hospital and ICU on 08/29/24. He continues on mechanical ventilator, his one from home. He remaines on volume assist control, rate of 20, tidal volume of 450, FiO2 45% and PEEP of 5. He continues to have LR running at 50 cc/h, TPN at 91 cc/h, norepinephrine at 0.24 mcg/kg/min, Avycaz and Tobramycin. Zebraxa was discontinued as there was no reported sensitivity to it. Lab work shows WBCs 9.40, Hgb 8.8, Hct 30.6, PLT 100, Na 130, K 3.6, bicarb 23, BUN 25, Cr 0.51, Ca 7.8, Ionized Ca 4.6, Phos 3.3, Mg 2.1, TSH 2.710 and random cortisol 13.1. 09/04/24 - He is seen in room 252. Admitted to the hospital and ICU on 08/29/24. He continues on mechanical ventilator, his one from home. He remaines on volume assist control, rate of 20, tidal volume of 450, FiO2 45% and PEEP of 5. He continues to have LR running at 50 cc/h, TPN at 91 cc/h, norepinephrine at 0.24 mcg/kg/min, Avycaz and Tobramycin. Lab work shows sodium 133, potassium 3.5, bicarb 24, BUN 27, creatinine 0.47, calcium 7.9, ionized calcium 4.6, magnesium 1.9, phosphorus 3.0, total bilirubin 1.7, AST 57, ALT 45, alkaline phosphatase 99. Progress note dated September 05, 2024. 49-year-old male well-known to our service. He is seen today in room 252. He continues on volume assist-control, rate 20, tidal 450, FiO2 45%, PEEP of 5. The patient has refused blood gases. Currently, he is getting TPN at 65 cc an hour, norepinephrine at 1 mcg/min, LR at 50 cc/h. Clinically, the patient is doing well. His chest x-ray remains about the same. Yesterday he was on a higher dose of norepinephrine, and also was on vasopressin. Both have been weaned off. Current labs include a sodium 136, potassium 4.1, chlorides 101, CO2 28, BUN 30, creatinine 0.37. Glucose 153. Albumin is 2.2. Previous sputum, from August 29 with positive for Pseudomonas aeruginosa. Chest x-ray is largely unchanged. Progress note dated September 06, 2024. 49-year-old male again seen today in the intensive care unit, room 252. He remains on mechanical ventilator, actually his home ventilator, with settings of volume assist-control, rate 20, tidal volume 450, FiO2 45%, PEEP of 5. No blood gases today. The patient has been refusing. He is getting lactated Ringer's at 50 cc an hour, TPN at 65 cc an hour. He continues on the same antibiotics. White count 5.21, hemoglobin 7.9, hematocrit 27.5, and platelet count 64,000. Sodium 141, potassium 3.5, chlorides 102, CO2 32, BUN 25, and creatinine 0.35. Glucose is 152. Calcium is 8. Albumin is 2.1. Chest x-ray is largely unchanged. Patient was seen today on 09/16/2024, patient is basically about the same. Hardly any improvement noted in the last few weeks since admission, patient remains intubated, mechanically ventilated, same ventilator settings, assist-control rate of 20 tidal volume 450 FiO2 60% and PEEP of 8 ABG was not done today, no easy access, attempted to place arterial lines in this patient, but could not pass a wire although the arteries including femoral artery and left brachial artery were easily cannulated. No further attempts made for arterial access. Patient remains on norepinephrine at 0.13 mcg/kg/min still on TPN at 75 cc/h still on Zerbaxa and vancomycin chest x-ray showed worsening today of bilateral infiltrates possibly some component of fluid overload and I recommended Lasix 20 mg IV push twice daily. Patient seems to be quite swollen and edematous. WBC count is 5.4 hemoglobin 7.6 electrolytes showed sodium of 146 potassium 4.1 BUN 20 creatinine 0.47 Patient was seen today on 09/17/2024, patient seems to be deteriorating steadily over the last 24 hours, he is developing profound hypotension requiring pressors in the form of Levophed at 0.4 mcg/kg/min he is also on vasopressin at 0.04 units/min he is on TPN at 75 cc/h hemoglobin is noted to be low at 6.9, patient has positive yeast in the blood/fungemia he is on fluconazole, this is being addressed by infectious disease on the case. Earlier ABG showed a pO2 of 77 pCO2 88 pH of 7.13, Vent settings were adjusted with increasing the rate to 36. He is now on tidal volume of 350 FiO2 100% PEEP is 10 and rate is 36. Another ABG is pending. But clearly patient is taking a downhill clinical course. Patient is quite septic, I will likely change his central line, and place a new central line in this patient today and remove the old central line/PICC line. Patient will receive a unit of packed RBCs for hemoglobin of 6.9. Considering the change in his overall clinical status, discussed his condition with son, would like to keep his dad as a full code, he is very well aware of the poor prognostic picture and how ill his dad is. Would like to keep him a full code. WBC count today is 20.03 hemoglobin 8.5, basic metabolic profile is normal BUN is 25 creatinine 0.4 total protein is 6.9 albumin is 1.9. Patient was seen today on 09/18/24, remains in the ICU, intubated and mechanically ventilated. Patient is still requiring assist-control rate of maximal ventilatory support with rate of 36 tidal volume increased today up to 400 FiO2 decreased from 100% to 70% PEEP remains at 12. Earlier ABG before changes were made at the FiO2 had been on tidal volume showed a pO2 of 77 pCO2 68 pH of 7.20. Patient is still requiring norepinephrine and I have been titrating the norepinephrine earlier this morning he is down to 0.18 from 0.46 yesterday micrograms per kilo per minute vasopressin is still at 0.04 units/min patient is on propofol at 50 mcg/kg/min Lasix drip at 20 mg/h and TPN at 75 cc/h. I am also treating the patient with vancomycin, Zerbaxa, and Eraxis was added to replace fluconazole yesterday by infectious disease specially with his positive blood cultures for Bella. Urine output is improving with the Lasix drip, he did not improve much with 1 dose of Lasix 60 mg IV push. Remains on Solu-Cortef at 100 mg IV push every 8 hours patient is in positive fluid balance about 6 L hence I decided to go with Lasix drip today. Labs today showed slight improvement in his WBC count down to 14.9 hemoglobin is 7.6, electrolytes are abnormal with a potassium of 6.1 BUN is 45 creatinine 0.82 chest x-ray continues show bilateral interstitial edema/infiltrates, could be cardiogenic or noncardiogenic pulmonary edema I believe it is mostly cardiogenic/related to fluid overload as he received significant fluids yesterday for low blood pressure. And he was not making much urine in the last 24 hours. Hence Lasix drip was started today. Patient was seen today on 09/19/2024, remains in the ICU, remains intubated and mechanically ventilated. Patient is on assist-control rate of 36 tidal volume 400 FiO2 65% and PEEP of 12. His ABG showed a pO2 of 142 pCO2 52 pH of 7.28, hence cut down his FiO2 down to 50%. The PEEP at 12. Patient remains hemodyn amically unstable, remains on norepinephrine at 0.08 mcg/kg/min, his vasopressin has been discontinued. TPN is at 75 cc/h. Remains on Lasix drip/infusion at 20 mg/h. He is on propofol at 50 mcg/kg/min remains on Solu-Cortef 50 mg every 8, Eraxis, Zerbaxa, vancomycin. Urine output is marginal at about 10 to 20 cc/h in spite of Lasix drip. Lovenox will be resumed today at 80 mg subcu twice daily. Patient is sedated, his overall clinical status is showing slight improvement compared to the clinical status couple of days ago. Chest x-ray continues to show evidence of interstitial edema although the possibility of ARDS is not entirely ruled out considering his overall septic picture. CBC is about the same with WBC of 7.7 hemoglobin 7.1. Platelets are 128,000. Basic metabolic profile is normal potassium is down to 5.2 BUN is 67 creatinine is slightly higher today 1.13. Blood sugar is 358. Patient was seen today on 09/20/2024, remains in the ICU intubated mechanically ventilated. On assist-control rate of 36 tidal volume 400 FiO2 50% PEEP of 12, no ABG done today, however his O2 saturation is in the high 90s about 98%. Patient had a low hemoglobin today and he will need a unit of blood/packed RBCs for low hemoglobin. No active bleeding noted, Hemoccult stools will be done t lizette. Patient remains on Eraxis and Zerbaxa, his vancomycin was discontinued remains on lower dose of Solu-Cortef 50 mg IV push every 12 hours. Continues to have poor urine output and his renal functioning is getting a bit worse. Nephrology was consulted, patient received initially significant amount of fluids for his presentation of sepsis, and he remained oliguric in spite of fluid boluses. Then he was placed on Lasix drip which initially was working fine, now that urine output is rather marginal and spite of Lasix drip at 20 mg an hour. I am recommending a trial of albumin followed by 80 mg of Lasix IV push. And hopefully his urine output will pick pack worker with the albumin and with the blood transfusion which is scheduled to be done soon. Vancomycin has been discontinued. Chest x-ray continues to show evidence of interstitial edema. Labs are reviewed his potassium is 5 bicarb is 20 BUN is 83 creatinine 1.49 platelets are 105 hemoglobin 6.3. Progress note dated September 21, 2024. The patient remains on volume assist-control, rate 36, tidal volume 400, FiO2 50%, PEEP of 12. Blood gases were not obtained. He continues on TPN at 75 cc an hour, propofol at 50 mcg/kg/min, saline at 10 cc an hour, and norepinephrine is currently on hold. Antibiotic douglas, he continues on vancomycin, and Eraxis. White count is 6.9, hemoglobin 7.6, hematocrit 24.3, and platelet count 115,000. Sodium 137, potassium 5.1, chlorides 103, CO2 18, anion gap 16, BUN 99, creatinine 1.58. Glucose is 228. Calcium 8.1, phosphorus 5.4, magnesium 2.5. Culture data shows evidence of Pseudomonas aeruginosa back on August 29, Pseudomonas in the bronchial washings on September 07, and blood cultures positive, September 18, currently pending. Chest x-ray is largely unchanged, shows patchy diffuse airspace opacities, with a small right-sided pleural effusion. Progress note dated September 22, 2024. The patient is seen today in room 252. He remains on volume assist-control. Settings include volume assist-control 36, tidal volume 400, FiO2 50%, PEEP of 12. He is getting propofol at 50 mcg/kg/min, norepinephrine at 3 mcg/min, and TPN at 75 cc an hour. He is having hemodialysis today. The goal is removal of 1 to 2 L of fluid. He continues on Eraxis. We were able to place a right radial arterial line. We will repeat a blood gas, after hemodialysis. Current laboratory data includes a white count 7.4, hemoglobin 7.3, hematocrit 23.4, and a platelet count of 114,000. Sodium 134, potassium 5.4, chlorides 104, CO2 15, anion gap 15, BUN 110, creatinine 1.79. Glucose is 153. Calcium is 8.3. Previous blood in sputum sampling, showed evidence of Pseudomonas aeruginosa. The patient also has previous blood culture showing evidence of Bella species. Chest x-ray today is largely unchanged. Progress note dated September 23, 2024. 49-year-old male seen today in room 252. He remains on mechanical ventilation. He is on volume assist-control, rate 36, tidal volume 400, FiO2 40%, PEEP of 12. Blood gases show pO2 100, pCO2 44, pH is 7.30. Patient continues on norepinephrine at 5.6 mcg/min, propofol at 50 mcg/kg/min, TPN at 33 cc an hour. He is getting saline at 10 cc an hour. He had hemodialysis yesterday, September 22, and 1 L of fluid was removed. He continues on Eraxis, as per infectious diseases. White count is 9.0, hemoglobin 7.7, hematocrit 24, and platelet count is 155,000. Sodium 132, potassium 4.5, chlorides 96, CO2 20, anion gap 16, BUN 80, and creatinine 1.69. Glucose is 145. Calcium 8.5. Most recent blood cultures, on September 18, were positive for Bella. Today's chest x-ray is largely unchanged. Progress note dated September 24, 2024. 49-year-old male seen today in room 252. The patient continues on life support, IV volume assist-control, rate 36, tidal volume 400, FiO2 40%, PEEP of 12. Blood gases show pO2 100, pCO2 42, pH is 7.39. The patient is getting propofol at 15 mcg/kg/min, norepinephrine at 4 mcg/min, TPN at 33 cc an hour, and saline at 10 cc an hour. The patient's hemoglobin is 7. He continues on Eraxis. The patient static lung compliance is 23.5 mL/cm water. He has very stiff lungs. White count is 6.7, hemoglobin 7, hematocrit 22.4, platelet count 158,000. Sodium 130, potassium 4, chlorides 95, CO2 22, anion gap 13, BUN 58, creatinine 1.52. Glucose is 114. Calcium 8.3. Magnesium 1.7. No recent new culture data. Chest x-ray is about the same as it was a day before. It shows right basilar airspace opacities, with a small right-sided pleural effusion. There was some interstitial prominence. Progress note dated September 25, 2024. 49-year-old male seen today in room 252. He remains on volume assist-control, rate 36, tidal volume 400, FiO2 30%, and PEEP of 12, to be dropped to a PEEP of 8. Blood gases show pO2 of 82, pCO2 36, pH of 7.49. The patient is on TPN at 33 cc an hour, propofol at 30 mcg/kg/min, and norepinephrine at about 3 mcg/min. He is having hemodialysis today. Goal is to remove 2 to 3 L if tolerated. The patient continues on Eraxis. White count 7.5, hemoglobin 7.6, hematocrit 23.9, and platelet count of 194,000. Sodium 129, potassium 3.5, chloride 94, CO2 24, anion gap normal, BUN 35, creatinine 1.06. Glucose is 115. Albumin is 2.5. Recent blood cultures are positive for Bella. Chest x-ray is largely u nchanged. There is right basilar airspace disease, with a small right-sided pleural effusion. Progress note dated September 26, 2024. 49-year-old male seen today in room 252. He remains on volume assist-control, rate 36, tidal volume 400, FiO2 30%, PEEP of 8. Blood gases show pO2 of 73, a PCO2 of 34, and a pH of 7.54. He continues on propofol at 20 mcg/kg/min, norepinephrine at approximately 2 mcg/min, TPN at 33 cc an hour. The patient does continue on Eraxis, for fungemia. Current labs showed a white count of 7.32, hemoglobin 7.5, hematocrit 23.7, and a normal platelet count. Sodium 132, potassium 3.4, chloride 79, CO2 25, anion gap 8, BUN 22, and creatinine 0.87. Chest x-ray shows bilateral infiltrates, consistent with either pneumonia, or fluid overload. The chest x-ray is largely unchanged from the prior x-ray. Progress note dated September 27, 2024. 49-year-old male again seen in room 252. He remains on mechanical ventilation. He is on volume assist-control, rate 36, tidal volume 400, FiO2 30%, PEEP of 8. Blood gases show PO279, PCO2 of 34, pH is 7.54. The patient continues on propofol at 20 mcg/kg/min, norepinephrine at 2 mcg/min, TPN at 33 cc an hour. He had hemodialysis yesterday, 3 L was removed. He continues on Eraxis. In that regard, I did ask the nurse to call the infectious disease doctor, to get a stop date on this medication. White count 6.9, hemoglobin 7.8, hematocrit 24.8, platelet count 224,000. Sodium 131, potassium 3.4, chloride 97, CO2 26, anion gap 8, BUN 19, and creatinine 0.87. Calcium is 8.1. Chest x-ray, in my opinion, is improved. Patient was seen today on 10/09/2024, remains in the ICU, intubated mechanically ventilated, awake, off propofol, not requiring any pressors at this point, patient remains on assist-control rate of 24 tidal volume 400 FiO2 30% and PEEP of 5 patient is receiving hemodialysis during my evaluation. Remains on TPN at 85 cc/h. Chest x-ray is showing improvement in his bilateral airspace disease. Patient remains on Solu-Cortef, and I changed that to oral 25 mg p.o. twice daily. Labs today showed WBC count of 6.2 hemoglobin 8.7 electrolytes are normal BUN is 79 creatinine 2.02 Patient was seen today on 10/10/2024, remains in the ICU intubated mechanically ventilated, on assist-control rate of 24 tidal volume 400 FiO2 30% PEEP of 5 no ABG has been done today. Patient remains on TPN at 85 cc/h. Patient remains on hemodialysis Saturday and Saturday patient had a swallow evaluation and recommendation was chopped diet. We have placed the patient yesterday on Cortef orally. Remains on heparin subcu. He is hemodynamically stable, not requiring any pressors. Chest x-ray. Continues to show stable chest. Small pleural effusions noted. WBC count is 5.8 hemoglobin 8.2 electrolytes showed low sodium 129 potassium 3.5 BUN 55 creatinine 1.59 Patient was seen today on 10/11/2024, patient remains in the ICU intubated mechanically ventilated, on assist-control rate 24 with tidal volume 400 FiO2 30% PEEP of 5 patient is resting, he is not in any distress he is not requiring any pressors TPN is at 85 cc/h. CBC is basically unremarkable hemoglobin is 8.9 electrolytes are normal BUN is 84 creatinine 2.44. Clinically I believe this is the best I have seen this patient since his last admission. Chest x-ray showed minimal basilar atelectasis especially at the left base. This is relatively chronic. Progress note dated October 12, 2024. 49-year-old male who is now been in the hospital for 49 days. The patient was last seen by me on September 27. Currently, he remains on mechanical ventilation. He is on volume assist-control, rate 24, tidal volume 400, FiO2 30%, PEEP of 5. The patient is not receiving any IV fluids, or antibiotics. The patient is scheduled to have hemodialysis today. He is getting TPN at 85 cc an hour. His last hemodialysis session was last Saturday, and 3 L was removed. He is stable on the ventilator. His peak airway pressure is 27 cm of water. His plateau pressure of 17 cm of water. Current labs with a white count of 4.55, hemoglobin 8.1, hematocrit 25.1, platelet count 141,000. Sodium 136, potassium 5.1, chlorides 101, CO2 23, BUN 108, and creatinine 2.81. Anion gap is 12. Glucose is 155. Chest x-ray is largely unchanged. According to the nurses, the patient had an uneventful night. Objective - Vital Signs Vital signs: Vital Signs Temp 98.4 F 10/12/24 08:00 Pulse 94 10/12/24 10:00 Resp 21 10/12/24 10:00 BP 146/71 10/12/24 10:00 Pulse Ox 98 10/12/24 10:00 FiO2 30 10/12/24 08:00 Intake & Output 10/11/24 10/12/24 10/12/24 18:59 06:59 18:59 Intake Total 1129 1146 340 Output Total 535 645 35 Balance 594 501 305 Weight 90.7 kg Intake: IV 1104 1146 340 Fat Emulsion 20% 250 ml 84 126 In Empty Bag 1 bag @ 21 mls/hr IV Q72H [facility] Rx#: [id number] TPN 1020 1020 340 Oral 25 Output: Drainage 500 Medial Abdomen 500 Urine 35 45 35 Stool 600 Other: Voiding Method Indwelling Catheter Indwelling Catheter Indwelling Catheter ABP, PAP, CO, CI - Last Documented Arterial Blood Pressure - Exam No acute distress, currently connected to the ventilator. He has a tracheostomy tube in place. HEENT examination is grossly unremarkable. Mucous membranes are moist. No oral lesions. Neck supple. Full range of motion. No adenopathy thyromegaly or neck vein distention. Cardiovascular examination reveals regular rhythm rate. S1-S2 normal. No S3 or S4. No discernible murmur noted. Lungs reveal scattered rhonchi and crackles. No wheezes. Breath sounds equal bilaterally. Abdomen reveals an enterocutaneous fistula, normal bowel sounds. No tenderness. No masses. Extremities are intact. No cyanosis clubbing or edema. Right below the knee amputation. Has a right radial arterial line. Skin is without rash or lesion. Neurologic examination is brief but nonfocal. He does have significant muscle atrophy, and contractures. He has a right below the knee amputation. - Labs CBC & Chem 7: 10/12/24 08:39 10/12/24 06:20 Labs: Abnormal Lab Results - Last 24 Hours (Table) 10/11/24 10/11/24 10/11/24 Range/Units 11:36 17:40 23:47 RBC (4.40-5.60) 10*6/uL Hgb (13.0-17.0) g/dL Hct (39.6-50.0) % Immature Gran # (0.00-0.04) 10*3/uL Sodium (137-145) mmol/L BUN (9-20) mg/dL Creatinine (0.66-1.25) mg/dL Glucose (74-99) mg/dL POC Glucose (mg/dL) 160 H 196 H 156 H (70-110) mg/dL Phosphorus (2.5-4.5) mg/dL 10/12/24 10/12/24 10/12/24 Range/Units 05:27 06:20 08:39 RBC 2.89 L (4.40-5.60) 10*6/uL Hgb 8.1 L (13.0-17.0) g/dL Hct 25.1 L (39.6-50.0) % Immature Gran # 0.07 H (0.00-0.04) 10*3/uL Sodium 136 L (137-145) mmol/L BUN 108 H* (9-20) mg/dL Creatinine 2.81 H (0.66-1.25) mg/dL Glucose 155 H (74-99) mg/dL POC Glucose (mg/dL) 165 H (70-110) mg/dL Phosphorus 5.2 H (2.5-4.5) mg/dL Assessment and Plan Assessment: Septic shock, likely secondary to Pseudomonas pneumonia, resolved. Possible fungemia, completed Eraxis. Chronic hypoxemic and hypercapnic respiratory failure, ventilator dependent, on a home ventilator, S/P tracheostomy. Left lower lobe atelectasis, possible pneumonia, with pseudomonal infection. History of severe tracheal stenosis, S/P tracheostomy. History of recurrent pneumonia, involving the left lower lobe. Tracheobronchomalacia. History of DVT. History of CVA. History of right below-knee amputation. Previous history of asystole/cardiac arrest, 2021. History of Crohn's disease, S/P enterocutaneous fistula, diverting ileostomy. Plan: Plan dated August 31, 2024. The patient is seen today in room 252. The patient's weight had on fluids, and the lactated Ringer's is cut back to 40 cc an hour. The patient will get 1 dose of Lasix IV push. Ventilator settings are noted. No blood gases today. It was apparently refused by the patient. Doppler of the left upper extremity was negative for DVT. Will check a procalcitonin level. The patient continues on norepinephrine at 8 mcg/min. He is getting TPN at 91 cc an hour. We will continue to follow make recommendations along the way. Labs, x-rays, and all medications are reviewed. Prognosis is certainly guarded. Dictation was produced using [employer] software. Please excuse any grammatical, word or spelling errors. Plan dated September 05, 2024. The patient is seen today in room 252. He is connected to his home mechanical ventilator. Settings of the same and include volume assist-control, rate 20, tidal volume 450, FiO2 45%, PEEP of 5. The patient is getting TPN at 65 cc an h our, norepinephrine has been weaned down to 1 mcg/min. He is getting lactated Ringer's at 50 cc an hour. He continues on Avycaz and tobramycin. We will continue to follow make recommendations. The patient also continues on hydrocortisone, for relative adrenal insufficiency. Prognosis is certainly guarded. We will continue to follow. Dictation was produced using [employer] software. Please excuse any grammatical, word or spelling errors. Plan dated September 06, 2024. The patient is seen today in room 252. He continues on mechanical ventilation. The patient is having increased secretions. Will add a scopolamine patch. He continues on Avycaz, and tobramycin. In addition, he continues on TPN at 65 cc an hour, and lactated Ringer's at 50 cc an hour. All labs, x-rays, and medic ations are reviewed. Chest x-ray is unchanged. We will continue to follow make recommendations. Prognosis is guarded. Dictation was produced using [employer] software. Please excuse any grammatical, word or spelling errors. Plan dated September 21, 2024. The patient is again seen today in room 252, with presumed ongoing sepsis. The patient has norepinephrine on standby, for blood pressure support, and recently was maxed out on multiple vasopressors. Currently, the patient continues on E raxis, and vancomycin. The patient also continues on TPN at 75 cc an hour, propofol at 50 mcg/kg/min. All labs, x-rays, medications are reviewed. The patient's overall prognosis remains very poor. We will continue to follow. He remains a full code. Dictation was produced using [employer] software. Please excuse any grammatical, word or spelling errors. Plan dated September 22, 2024. The patient was seen to get her up to 52. We were able to place a right radial art line in the patient. There was good blood return from the arterial line, although the waveform was dampened. The patient continues on appropriate medications, including propofol at 50 mcg/kg/min, norepinephrine at 3 mcg/min. The patient is also getting TPN at 75 cc an hour. He is receiving hemodialysis today. He continues on Eraxis. After hemodialysis, the patient will have a arterial blood gas. Additional recommendations and suggestions are forthcoming. Prognosis is guarded. All labs, x-rays, and medications are reviewed. We will continue to follow the patient, make recommendations. Dictation was produced using [employer] software. Please excuse any grammatical, word or spelling errors. Plan dated September 23, 2024. The patient is again seen today in room 252. The patient's blood gases show pO2 100, pCO2 44, pH of 7.31. Patient continues on norepinephrine at 5.6 mcg/min, propofol at 50 mcg/kg/min. The patient is getting TPN at 33 cc an hour. The patient continues on Eraxis. He had hemodialysis yesterday. All labs, x-rays, and medications are reviewed. The patient remains a full code. Will continue to follow the patient, make recommendations along the way. Prognosis is guarded. Dictation was produced using [employer] software. Please excuse any grammatical, word or spelling errors. Plan dated September 24, 2024. According to the nurses, the patient had an uneventful night. He continues on volume assist-control, with a rate of 36, tidal volume 400, FiO2 40%, PEEP of 1 2. Blood gases are adequate with a pO2 of 100, pCO2 of 42, pH of 7.39. The patient continues on sedation with propofol at 50 mcg/kg/min. For his lower blood pressure, he is on norepinephrine at 4 mcg/min. He continues on parenteral nutrition, with TPN at 33 cc an hour. He also continues on Eraxis for fungemia. Hemoglobin is 7. No transfusion at this time. All labs, x-rays, and medications are reviewed. We will continue to follow the patient, make recommendations. The patient's overall prognosis remains poor. Dictation was produced using [employer] dictation software. Please excuse any grammatical, word or spelling errors. Plan dated September 25, 2024. The patient is seen today in room 252. He continues on Eraxis. The patient continues on mechanical ventilation. Labs, x-rays, and medications are reviewed. We will continue to follow the patient, make recommendations. He is getting TPN at 33 cc an hour, and propofol at 30 mcg/kg/min. He continues on norepinephrine at about 3 mcg/min. He is having hemodialysis today. The goal is to remove somewhere between 2 to 3 L of fluid, pending his blood pressure response. The patient will be dropped from 12 cm of water down to 8 cm of water. Blood gases have been reviewed. All labs, x-rays, and medications have been reviewed. We will continue to follow. Prognosis is guarded. Dictation was produced using [employer] software. Please excuse any grammatical, word or spelling errors. Plan dated September 26, 2024. The patient is seen today, in room 252. The patient remains on mechanical ventilation. Blood gases are reasonable. All labs, x-rays, and medications are reviewed. The patient continues on propofol at 20 mcg/kg/min, and norepinephrine at roughly 2 mcg/min. We will continue to follow make recommendations. He is being nursed with TPN at 33 cc an hour. 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 Prognosis is guarded. Dictation was produced using [employer] software. Please excuse any grammatical, word or spelling errors. Plan dated September 27, 2024. The patient was seen today in room 252. She remains on mechanical ventilation. Blood gases are reviewed. PO279, [id number], pH of 7.54. Labs, x-rays, and all medications are reviewed. He continues on propofol at 20 mcg/kg/min, and a small dorsal norepinephrine at 2 mcg/min. Is getting TPN at 33 cc an hour. He continues on Eraxis. He had hemodialysis yesterday. 3 L was removed. All labs, x-rays, and medications are reviewed. We will continue to follow the patient, make recommendations. Dictation was produced using [employer] software. Please excuse any grammatical, word or spelling errors. Plan dated October 12, 2024. The patient is again seen in the intensive care unit. He remains critically ill on mechanical ventilator. He remains on volume assist-control, rate 24, tidal volume 400, FiO2 30%, PEEP of 5. He is getting TPN at 85 cc an hour. He is currently not on any antibiotics, or antifungals. He is scheduled to have hemodialysis today. His last hemodialysis session was last Saturday, and 3 L was removed. Currently he is stable on the ventilator. His peak airway pressure is 27, with a plateau pressure of 17. Labs, x-rays, and all medications are reviewed. The patient is currently being evaluated for transfer to another facility, but that will not happen before October 16, when apparently new insuran ce kicks in. We will continue to follow make recommendations. Prognosis is poor. Dictation was produced using [employer] software. Please excuse any grammatical, word or spelling errors. Time with Patient: Greater than 30
[2024-10-12 12:46] LABS: Glucose,Whole Blood 149 mg/dL (70-110)
--- NOTE | 2024-10-12 13:36 | P.PN ---
Subjective Patient is seen for follow-up for acute kidney injury. Patient remains on the vent. He is awake. Started hemodialysis on 09/22/2024 for volume overload and worsening acute kidney injury Patient remains oliguric. Urine output 0 to 5 mL/h FiO2 at 30% No significant issues today. Patient is seen on hemodialysis. No issues with clotting. Using heparin today. Objective - Vital Signs Vital signs: Vital Signs Temp 98.4 F 10/12/24 08:00 Pulse 91 10/12/24 13:00 Resp 27 H 10/12/24 13:00 BP 137/77 10/12/24 13:00 Pulse Ox 99 10/12/24 13:00 FiO2 30 10/12/24 12:00 Intake & Output 10/11/24 10/12/24 10/12/24 18:59 06:59 18:59 Intake Total 1129 1146 510 Output Total 535 645 55 Balance 594 501 455 Weight 90.7 kg Intake: IV 1104 1146 510 Fat Emulsion 20% 250 ml 84 126 In Empty Bag 1 bag @ 21 mls/hr IV Q72H ANNIE Rx#: [id number] TPN 1020 1020 510 Oral 25 Output: Drainage 500 Medial Abdomen 500 Urine 35 45 55 Stool 600 Other: Voiding Method Indwelling Catheter Indwelling Catheter Indwelling Catheter ABP, PAP, CO, CI - Last Documented Arterial Blood Pressure - Exam Patient is on the vent he is awake. Examination of lower extremities shows right BKA and 1+ edema in the left leg - Labs CBC & Chem 7: 10/12/24 08:39 10/12/24 06:20 Labs: Abnormal Lab Results - Last 24 Hours (Table) 10/11/24 10/11/24 10/12/24 Range/Units 17:40 23:47 05:27 RBC (4.40-5.60) 10*6/uL Hgb (13.0-17.0) g/dL Hct (39.6-50.0) % Immature Gran # (0.00-0.04) 10*3/uL Sodium (137-145) mmol/L BUN (9-20) mg/dL Creatinine (0.66-1.25) mg/dL Glucose (74-99) mg/dL POC Glucose (mg/dL) 196 H 156 H 165 H (70-110) mg/dL Phosphorus (2.5-4.5) mg/dL 10/12/24 10/12/24 10/12/24 Range/Units 06:20 08:39 12:45 RBC 2.89 L (4.40-5.60) 10*6/uL Hgb 8.1 L (13.0-17.0) g/dL Hct 25.1 L (39.6-50.0) % Immature Gran # 0.07 H (0.00-0.04) 10*3/uL Sodium 136 L (137-145) mmol/L BUN 108 H* (9-20) mg/dL Creatinine 2.81 H (0.66-1.25) mg/dL Glucose 155 H (74-99) mg/dL POC Glucose (mg/dL) 149 H (70-110) mg/dL Phosphorus 5.2 H (2.5-4.5) mg/dL Assessment and Plan Assessment: 1. Acute kidney injury secondary to ATN secondary to septic shock and vancomycin toxicity. Vancomycin level 49.3 on 09/19/2024. Patient remains oliguric. Started hemodialysis on 09/22/2024. 2. Septic shock secondary to pneumonia and fungemia. Stable now 3. Acute blood loss anemia status post packed RBCs transfusion. Hemoglobin stable. Maintained on Aranesp 4. Volume overload. 5. Chronic hypoxic and hypercapnic respiratory failure, home ventilator dependent. 6. History of cardiac arrest. 8. Status post right BKA. 9. Hyperkalemia associated with severe hyperglycemia. TPN adjusted, improved Plan: Maintain hemodialysis on Saturday schedule Maintained on TPN Continue to monitor electrolytes.
[2024-10-12] MEDS: SODIUM CHLORIDE IV SCH (18:09)
[2024-10-12] MEDS: [UNRECOGNIZED DRUG - OTHER] IV SCH (18:09)
[2024-10-12] MEDS: SODIUM ACETATE IV SCH (18:09)
[2024-10-12 18:15] LABS: Glucose,Whole Blood 124 mg/dL (70-110)
[2024-10-12] MEDS: HYDROCORTISONE 10 MG TAB PO SCH (20:56)
--- NOTE | 2024-10-12 22:19 | P.PN ---
Subjective Progress Note Date: 10/12/24 Chief Complaint: Short of breath 49-year-old patient, follows with Dr. Murcia History of paraplegia, home vent at night, tracheostomy multiple admissions to the ICU for recurrent pneumonia. Patient's previous bronchial cultures been positive for Pseudomonas. He was discharged recently on IV cefepime. Also has a history of Crohn's disease with previous colectomy diverting ileostomy. History of DVT for which patient is on subcu Lovenox. Also had drug-resistant MRSA Pseudomonas. Patient currently does not have areas significant trach secretions. He has continues TPN. Has a right BKA. He does have slight movement in the right hand. Able to follow commands by nodding his head. Answering questions. He is scared by his elder son open. I was also the DPOA. August 30: Overnight patient started having more secretions through the tracheostomy. Vancomycin was added. Also blood pressure running low patient was put on Levophed drip. Otherwise sinus rhythm. Patient remains on the ventilator. Will also send off stool for C. difficile. Also patient IV cefepime. Getting TPN. August 31: ICU. Patient had positive fluid balance. Was given IV Lasix earlier. Remains on Levophed. Spiking fevers. Getting TPN. Stool negative for C. difficile. Patient is growing MDRO Pseudomonas aeruginosa. ID is ordered IV Zerbaxa. Which is currently not available. Patient's friend is visiting him in the ICU. Light trach secretion September 01: ICU. On the ventilator. FiO2 45%. PEEP of 5. Continues to have light trach secretions. Sputum cultures again growing Pseudomonas. Zerbaxa was obtained and resumed. Blood pressure running low. On Levophed. Patient's younger son at the bedside. Colostomy working fine. Has been spiking fevers. Cooling blanket. Ice packs. September 02: ICU. Ventilator FiO2 45%. PEEP of 5. Continues to have some trach secretions. IV Zerbaxa IV tobramycin. TPN lipids to continue. Also Levophed. Patient started cooling blankets since yesterday for temperatures. Along with the nurse speech therapy records were reviewed from last few admissions. Patient with multiple MBS and bedside swallow eval. No trouble with swallowing. Patient put on a chopped diet. Thin liquids. Patient did spike a fever of 101.7 earlier today. Low ionized calcium. IV gluconate given. September 03: ICU. On ventilator FiO2 45%. PEEP of 5. Mild trach secretions. Getting IV TPN lipids. IV tobramycin. Zerbaxa was substituted to Avycaz. By ID. No fever per se since yesterday. For blood pressure patient is also on Levophed and vasopressin. September 04: ICU. On ventilator FiO2 45%. PEEP of 5. Clear trach secretions. Getting IV TPN lipids. IV tobramycin. And IV Avycaz. Remains afebrile.. On Levophed and vasopressin. Awake. 09/06/2024 Patient is seen and evaluated in ICU; remains on mechanical ventilator, actually his home ventilator, with settings of volume assist-control, rate 20, tidal volume 450, FiO2 45%, PEEP of 5. - patient has been refusing blood; no ABGs to. He is getting lactated Ringer's at 50 cc an hour, TPN at 65 cc an hour. - patient remains on the same antibiotics. - Labs reviewed which reveal white count 5.21, hemoglobin 7.9, hematocrit 27.5, and platelet count 64,000. Sodium 141, potassium 3.5, chlorides 102, CO2 32, BUN 25, and creatinine 0.35. Glucose is 152. Calcium is 8. Albumin is 2.1. -Chest x-ray is largely unchanged. Critical care managing mechanical ventilation; recommending to add scopolamine patch for increased secretion -Patient remains on Avycaz and tobramycin - Continue with current TPN 09/07 Patient remains in the ICU lethargic. He is s/p tracheostomy Overnight he was more hypoxic they have to increase PEEP to 8. Also has a lot of secretions when needed for secretions suctioning to try to become apneic per Staff. Patient currently receiving Avycaz and tobramycin. on TPN also 09/08 Patient remains in the ICU awake and alert status post tracheostomy. He has contractures of both upper and lower extremities He is complaining from pain in his lungs. He is status post flexible bronchoscopy and bronchoalveolar lavage yesterday. He has previous sputum culture positive for Pseudomonas currently covered with ceftazidime and tobramycin. He is also on Lovenox 90 mg 09/09 Patient still in the ICU on mechanical ventilation via tracheostomy. PEEP is 8.0 as is yesterday Also he spiked little fever to 100.7. IV vancomycin is added to tobramycin and ceftazidime He is getting also bronchoscopy follow-up culture results 09/10 Patient feels clinically the same, he still getting breathing via mechanical ventilation through his tracheostomy with PEEP of 8. Patient feels he is required suctioning through his tracheostomy tube. He denies chest pain or pain anywhere else he can communicate by head signs and gestures. Hemodynamically stable and afebrile hemoglobin 7.4 platelet count 73 Glucose is controlled potassium 3.3 He remains on broad-spectrum antibiotic Rocephin at this time tobramycin and IV vancomycin added yesterday because he had low-grade fever. He is getting TPN. IV fluid Ringer lactate was stopped and patient was started on IV Lasix 20 mg 3 times a day continue with therapeutic dose of Lovenox as well 09/11 Patient remains in the ICU Remains on mechanical ventilation via tracheostomy He status post bronchoalveolar lavage 2 days ago, culture is growing Pseudomonas aeruginosa and corynebacterium Patient remains on broad-spectrum antibiotics with IV vancomycin, tobramycin, ceftazidime On IV Lasix also is on therapeutic dose of Lovenox 90 mg twice daily No IV fluids 09/12 Patient remains in the ICU Clinically close to what he was over the last 2 days still getting oxygen via his tracheostomy He remains on broad-spectrum antibiotic with Ceftin this time and IV vancomycin. Also he is on IV Lasix 20 mg and therapeutic dose of Lovenox. 09/13 Patient remains in the ICU on mechanical ventilation via tracheostomy Patient looks better today, he breathing better Less secretion Fentanyl patch increased 09/14. Patient seen and examined. Patient continues to be on mechanical ventilation via trach mask. Currently on TPN. Currently on IV Zerbaxa and vancomycin 09/15. Patient seen and examined.Vital signs done showed the patient overnight, heart rate 106, blood pressure 107/40, currently on ventilation. Labs reviewed showed WBC 7.27, hemoglobin 7.5, sodium 148 on potassium 4.3, BUN 23, creatinine 0.47 09/16. Patient seen and examined labs reviewed showing WBC 5.45, hemoglobin 9.6, platelet count 131, sodium 146, potassium 4.1, BUN 20, creatinine 0.47. Continue small amount of Levophed. Currently on Zerbaxa and vancomycin. Currently on TPN September 17: ICU. Patient has taken a turn for the worse today. Significant thick white secretions from the trach. Sinus rhythm. Receiving TPN. Patient is on Levophed and vasopressor. Rather high dose. FiO2 [address] of 10. [address] Ho earlier spoke to the patient/family. Remains full code September 18: ICU. Intubated FiO2 70 PEEP of 12. Sinus rhythm. Drips include IV propofol at 50 and Levophed at 0.13. Patient is off vasopressin. Patient secretions. Family at the bedside. September 19: ICU. Intubated. FiO2 50 and a PEEP of 12. Drips include IV Levophed and propofol. Also started on Lasix drip 10 mg an hour yesterday. Secretions present. September 20: ICU. Intubated. FiO2 50 and a PEEP of 12. Hemoglobin 6.3. Secondary to blood being given. Patient been on and off Levophed. On propofol. Lipids have been held. Continues with TPN. Lasix drip was discontinued. Lovenox has been held because of low hemoglobin. Unable anemia is felt to be combination of regular blood draws and possible element element of hemolysis from all the infection. No dark stool. Family at the bedside September 21: ICU. Intubated. Received 2 units of blood yesterday. Hemoglobin 7.6 today. Per nephrology renal replacement therapy. Dialysis access placed by Dr. Cadena. Patient earlier today on Levophed. Propofol. Getting TPN. Sinus rhythm. Urine output decreased September 22: ICU. Intubated. FiO2 15 of PEEP of 12. Seen earlier today. Dialysis being started. Been on IV Levophed propofol. Sinus rhythm. TPN. Sinus rhythm. September 23: ICU. Intubated. Due for another dialysis today. Saw the patient earlier today. Remains on IV Levophed propofol. Sinus rhythm. TPN. On fentanyl patch. September 24: ICU. Intubated. FiO2 40 and PEEP of 12. Remains on IV Levophed and propofol. IV TPN. Decrease trach secretions. IV antibiotics. Was due for dialysis earlier today. September 25: ICU. Intubated. FiO2 30%. Patient getting IV Levophed and propofol. IV TPN. Dialysis today. Receiving IV antibiotics. Does opens eyes occasionally. Some commands per nursing. September 26: ICU. Intubated. FiO2 30 and a PEEP of 8. Had 2 L hemodialysis removed yesterday. Getting hemodialysis today. Aiming for 2 to 3 L. Patient is on propofol. Currently Levophed on hold. Getting TPN. Patient is actually awake and following commands. Sinus rhythm. September 27: ICU. Intubated. FiO2 39 PEEP of 8. No dialysis today. Remains on IV Levophed propofol. TPN. There is a bedside. Patient asked me how is he doing. Had a lengthy information in terms of his guarded prognosis. Did tell him it is his choice about how he wishes to proceed. He needs to decide between treatment benefits versus in the suffering because of that entails from treatment and his recurrent infections etc. Especially in the context of decreased activity. Kidney failure, respiratory failure etc. September 28: ICU. Intubated. FiO2 30 and a PEEP of 8. For dialysis today. Off Levophed this morning. IV propofol. TPN. Some clear light to trach secret ions. Colostomy working. Poor urine output. September 29: ICU. Intubated. IV propofol Levophed. TPN. Awake. Discussed with Dr. Holt. Prognosis very poor. Probably treatment is the point of getting futile. Patient needs about 34 more days to go to long-term ventilator setting. September 30: ICU. Intubated. IV propofol. Currently off Levophed. TPN. Getting dialysis today. Awake. IV antifungal. Given a unit of blood for hemoglobin of 6.9 October 01: ICU. Intubated. IV propofol. Remains on Levophed. TPN dose adjusted. Dialysis. IV aniedulefungin. Eyes open. Vent. FiO2 30%. PEEP 5 September 18: ICU. Intubated. IV propofol. Off Levophed. TPN. Dialysis today. IV aniedulefungin last day on October 06. Per ID. Some trach secretions clear October 03: ICU. Intubated. IV propofol. TPN. Dialysis schedule will now be Saturday. Next dialysis will be on coming Saturday. IV aniedulefungin last day-I October 06. Minimal urine output-5 to 10 cc an hour. Awake. October 04: ICU. Intubated. IV propofol. TPN. Next dialysis on Saturday. IV elevated Lida function. Urine output remains to be minimal. Awake. Mother at the bedside. Does not have any questions. Sinus rhythm. 10/05/2024 Patient seen in follow-up today remains in the ICU on mechanical ventilation FiO2 is 30%. Patient is requiring some small dose Levophed as blood pressures were low maintained on hemodialysis. Multiple consultations following including infectious disease the patient is maintained on Eraxis which will be completed after October 06, 2024. Patient is continued on TPN and will continue. Prognosis remains poor and guarded at this time. 10/06/2024 Patient seen and evaluated in follow-up today with no significant changes other than blood sugars are becoming more elevated likely secondary to Cortef be resumed. Will add long-acting insulin and continue with sliding scale. Would recommend ACHS as well as at 2 AM as needed. Patient is afebrile continued on mechanical ventilation and will be completing Eraxis today. 10/07/2024 Patient seen in follow-up today continues on mechanical ventilation with an FiO2 of 30%, currently awake following commands and is maintained on low-dose propofol. Blood sugars extremely elevated above 500 and had started long-acting although no improvement, likely secondary to Solu-Cortef and is placed on insulin drip. Will adjust accordingly and titrate and attempt to wean as tolerated. Patient has completed Eraxis with infectious disease following closely. Hemoglobin was also noted to be low at 6.9 today and being transfused 1 unit and will follow-up on repeat labs this afternoon. Patient is scheduled to receive hemodialysis today. Patient is requesting if he can eat although is maintained on TPN and now with blood sugars of 500, no plans for resuming a diet as of today. 10/08/2024 Patient is seen in follow-up today is being closely monitored off antibiotic therapy and has completed Eraxis with infectious disease following closely. Patient is maintained on TPN along with Solu-Cortef and blood sugars were elevated requiring insulin drip as blood sugars were also noted to be over 500 yesterday. Blood sugars improved being started on long-acting along with sliding scale and insulin drip discontinued. Cortef also being adjusted per pulmonary blending tank tender. Patient continues on mechanical ventilation is awake and alert. FiO2 is 30%. Hemoglobin is improved status post 1 unit PRBC and is 8.2 today. Sodium improved at 133 with a potassium of 4.3, BUN is 51 and creatinine is 1.48. Case management/social work is following and awaiting until new insurance becomes effective next month and looking into possible ECF versus LT AC. Patient does have significant complex comorbidities and extremely guarded prognosis, would benefit from LTAC. Patient is afebrile and most recent blood cultures remain negative. 10/09/2024 Patient is seen in follow-up this morning continues to be in the ICU. Patient being evaluated by speech as patient would like to eat and will await official report. Patient's blood sugars have improved and transitioned off insulin drip maintained on long-acting along with sliding scale and will continue. Case management/social work is following looking into possible ECF that can accommodate hemodialysis as well as his significant comorbidities and ventilation via tracheostomy. Patient would benefit from LTAC although is having insurance issues. New insurance will become effective in October to be able to receive more LTAC days. Patient with significant multiple comorbidities requiring higher level of care. Patient is afebrile and CBC is within normal limits with no active bleeding noted. Will continue to monitor closely and recommend follow-up labs. 10/12/2024 Patient is seen in follow-up today with multiple consultations following. Patient is currently receiving hemodialysis and hemoglobin is stable with no active bleeding noted. Patient is being closely monitored off antibiotic therapy with infectious disease following. Patient has completed Eraxis. Patient to continue on TPN and will follow-up on repeat labs. Cortef is being titrated and dose is being decreased. Continue monitoring Accu-Cheks and tight glycemic control. Patient is maintained on mechanical ventilation via tracheostomy with FiO2 of 30%. Awaiting for new insurance to become effective October 16 and then will be determined an ECF versus LTAC Review of systems: Constitutional: No reports of fatigue, fever, or chills Cardiovascular: No reports of chest pain or palpitations Respiratory: No reports of shortness of breath or cough GI: No reports of nausea, vomiting, or diarrhea, reports eating very little : No reports of dysuria or retention Neurovascular: reports of weakness, and is bedbound All medications have been reviewed Active Medications Albuterol/Ipratropium (Ipratropium-Albuterol 3 Ml Neb) 3 ml INHALATION RT-Q4H PRN PRN Reason: shortness of breath Last Admin: 10/10/24 15:33 Dose: 3 ml Albuterol/Ipratropium (Ipratropium-Albuterol 3 Ml Neb) 3 ml INHALATION RT-QID ANNIE Last Admin: 10/12/24 19:53 Dose: 3 ml Artificial Tears (Artificial Tears-Hypromellose Drops 15 Ml Btl) 1 drops BOTH EYES QID PRN PRN Reason: Dry Eye(s) Last Admin: 09/04/24 12:52 Dose: 1 drops Chlorhexidine Gluconate (Chlorhexidine Gluconate 15 Ml Cup) 15 ml MUCOUS MEM BID [facility] Last Admin: 10/12/24 20:55 Dose: 15 ml Darbepoetin Andry (Darbepoetin Andry 40 Mcg/0.4 Ml Syringe) 40 mcg SQ Q7D [facility] Last Admin: 10/08/24 11:38 Dose: 40 mcg Dextrose/Water (Dextrose 50% Syringe 50 Ml) 25 ml IVP PER PROTOCOL PRN; Protocol PRN Reason: Hypoglycemia Dextrose/Water (Dextrose 50% Syringe 50 Ml) 50 ml IVP PER PROTOCOL PRN; Protocol PRN Reason: Hypoglycemia Fentanyl (Fentanyl 100mcg/Hr Patch) 1 patch TRANSDERM Q72H [facility]; Protocol Last Admin: 10/10/24 08:52 Dose: 1 patch Heparin Sodium (Porcine) (Heparin Sodium,Porcine 5,000 Unit/Ml 1 Ml Vial) 5,000 unit SQ Q8HR [facility] Last Admin: 10/12/24 16:11 Dose: 5,000 unit Hydrocortisone (Hydrocortisone 10 Mg Tab) 10 mg PO DAILY [facility] Hydrocortisone (Hydrocortisone 10 Mg Tab) 5 mg PO HS [facility] Last Admin: 10/12/24 20:56 Dose: 5 mg Hydromorphone HCl (Hydromorphone 1 Mg/Ml 1 Ml Syringe) 1 mg IVP Q3HR PRN PRN Reason: Moderate Pain (Scale 4 to 6) Last Admin: 10/12/24 20:55 Dose: 1 mg Fat Emulsion Intravenous 250 (ml/ IV Solution) 250 mls @ 21 mls/hr IV Q72H [facility] Last Admin: 10/11/24 14:12 Dose: 21 mls/hr Sodium Acetate 50 meq/ Sodium Chloride 120 meq/ Potassium Chloride 10 meq/ Calcium Gluconate 0.5 gm/ Magnesium Sulfate 0.5 gm/ Amino Acids/Dextrose 1,066 mls @ 85 mls/hr IV .BY DURATION [facility] Parenteral Vitamin Supplement 10 ml/ Zinc/Copper/Manganese/Selenium 1 ml/ Sodium Acetate 50 meq/ Sodium Chloride 120 meq/ Potassium Chloride 10 meq / Calcium Gluconate 0.5 gm/Magnesium Sulfate 0.5 gm/Amino Acids/Dextrose 1,077 mls @ 85 mls/hr IV .BY DURATION [facility] Last Admin: 10/12/24 18:09 Dose: 85 mls/hr Insulin Glargine (Insulin Glargine (Lantus) 100 Unit/Ml Syr) 20 unit SQ DAILY@0700 [facility] Last Admin: 10/12/24 06:51 Dose: 20 unit Insulin Human Lispro (Insulin Lispro (Humalog) 100 Unit/Ml 10 Ml Vl) 0 unit SQ Q6H [facility]; Protocol Last Admin: 10/12/24 18:17 Dose: Not Given Lorazepam (Lorazepam 1 Mg/0.5 Ml Vial) 1 mg IV Q6HR PRN PRN Reason: Anxiety Last Admin: 10/12/24 14:16 Dose: 1 mg Miscellaneous Information (Potassium Replacement Protocol 1 Each Misc) 1 each MISCELLANE DAILY PRN; Protocol PRN Reason: Per Protocol Miscellaneous Information (Magnesium Replacement Protocol 1 Each Misc) 1 each MISCELLANE DAILY PRN; Protocol PRN Reason: Per Protocol Naloxone HCl (Naloxone 0.4 Mg/Ml 1 Ml Vial) 0.2 mg IV Q2M PRN PRN Reason: Opioid Reversal Ondansetron HCl (Ondansetron 4 Mg/2 Ml Vial) 4 mg IVP Q6HR PRN PRN Reason: Nausea And Vomiting Last Admin: 09/01/24 19:41 Dose: 4 mg Pantoprazole Sodium (Pantoprazole 40 Mg/10 Ml Vial) 40 mg IV DAILY [facility] Last Admin: 10/12/24 08:14 Dose: 40 mg Petrolatum (Zinc Oxide Paste (Z-Guard) 1 Applic) 1 applic TOPICAL BID PRN; Prot ocol PRN Reason: Wound Healing Physical examination: GENERAL:, 49-year-old male who is awake, alert and oriented x 3, following commands continued on mechanical ventilation via tracheostomy with an FiO2 of 30% EYES: Pupils equal. Conjunctiva normal HEENT: External appearance of nose and ears normal, oral cavity dry NECK: JVD unable to assess; masses not palpable. Tracheostomy HEART: First and second heart sounds are normal; no edema. LUNGS: decreased breath sounds bilaterally, some crackles ABDOMEN: Soft, nontender, liver spleen not palpable, no masses palpable. Double barrel ostomy. PSYCH: Following simple commands MUSCULOSKELETAL: Right BKA. Left foot drop. Left hand contracture. Right hand also with contracture but able to have some movements NEUROLOGICAL: Cranial nerves grossly intact; no facial asymmetry, slight movement in the right arm. Assessment plan: - Basilar pneumonia. Previous admission sputum was positive for Pseudomonas aeruginosa - Candidemia secondary to left chest wall PICC line that has been discontinued. And repeat blood cultures on September 22 negative. - Fluid overload - Acute kidney injury from ATN from septic shock. And possibly vancomycin toxicity. Oliguric. Volume overload. First dialysis was on September 22.-Has been getting dialysis nearly daily. From now on dialysis schedule be Saturday - Metabolic alkalosis, improved - Septic shock: Requiring pressor support, improved and off pressors - Acute on chronic hypoxic and hypercapnic respiratory failure, vent dependent at night at home, FiO2 30% - Tracheostomy with trach collar -Acute normocytic anemia of chronic disease and hospital-acquired anemia from bl ood draws and possible hemolysis from infection - Thrombocytopenia likely from sepsis: Corrected - Right below-knee amputation history - Chronic quadriparesis. Including left foot drop. Left arm contracture. Some right hand contracture. Some movement in the right arm - Crohn's disease with double barrel ostomy bag in place since 09/2021 - TPN and lipids Lipids have been held during propofol - Hyperglycemia, likely secondary to Solu-Cortef as well as TPN, started on insulin drip 10/07/2024, improved although continues to be elevated and uncontrolled, off insulin drip - Full code - DPOA, haylee PENA Plan: Patient remains in the ICU on mechanical ventilation with an FiO2 of 30% via tracheostomy Continued per propofol along with Dilaudid Patient has completed Eraxis 10/06/2024 per ID recommendations being closely monitored off antibiotic therapy Continue current supportive care Nephrology following and patient is maintained on hemodialysis currently receiving today Blood sugars have been elevated and uncontrolled likely secondary to Solu-Cortef being resumed, patient was on insulin drip and has transitioned to long-acting along with sliding scale, Solu-Cortef reduced as well Recommend follow-up labs in the a.m. including CBC and CMP. Replace electrolytes per protocol. Transfuse if 7 or less on hemoglobin. No active bleeding noted Case management/social work following and awaiting new insurance to become effective October 16, discharge planning which will require LTAC versus ECF Overall prognosis is extremely poor and per family and patient, CODE STATUS remains full code The impression and plan of care has been dictated by Alyssa Hernandez, Nurse Practitioner as directed. Dr. Gerry MD I have performed a history and examination and MDM of this patient, discussed the same with the dictator, and agree with the dictator's assessment and plan as written ,documented as a scribe. Based on total visit time, I have performed more than 50% of the visit. Objective - Vital Signs Vital signs: Vital Signs Temp 98.5 F 10/12/24 21:00 Pulse 105 H 10/12/24 21:00 Resp 24 10/12/24 21:00 BP 135/57 10/12/24 21:00 Pulse Ox 98 10/12/24 21:00 FiO2 30 10/12/24 19:50 Intake & Output 10/12/24 10/12/24 10/13/24 06:59 18:59 06:59 Intake Total 1146 1420 315 Output Total 645 8470 10 Balance 501 -7007 305 Weight 90.7 kg Intake: IV 1146 1020 255 Fat Emulsion 20% 250 ml 126 In Empty Bag 1 bag @ 21 mls/hr IV Q72H ANNIE Rx#: [id number] TPN 1020 1020 255 Oral 60 Hemodialysis 400 Output: Urine 45 70 10 Stool 600 800 Hemodialysis 4000 Hemodialysis Net Amount 3600 Other: Voiding Method Indwelling Catheter Indwelling Catheter Indwelling Catheter ABP, PAP, CO, CI - Last Documented Arterial Blood Pressure - Labs CBC & Chem 7: 10/12/24 08:39 10/12/24 06:20 Labs: Abnormal Lab Results - Last 24 Hours (Table) 10/11/24 10/12/24 10/12/24 Range/Units 23:47 05:27 06:20 RBC (4.40-5.60) 10*6/uL Hgb (13.0-17.0) g/dL Hct (39.6-50.0) % Immature Gran # (0.00-0.04) 10*3/uL Sodium 136 L (137-145) mmol/L BUN 108 H* (9-20) mg/dL Creatinine 2.81 H (0.66-1.25) mg/dL Glucose 155 H (74-99) mg/dL POC Glucose (mg/dL) 156 H 165 H (70-110) mg/dL Phosphorus 5.2 H (2.5-4.5) mg/dL 10/12/24 10/12/24 10/12/24 Range/Units 08:39 12:45 18:14 RBC 2.89 L (4.40-5.60) 10*6/uL Hgb 8.1 L (13.0-17.0) g/dL Hct 25.1 L (39.6-50.0) % Immature Gran # 0.07 H (0.00-0.04) 10*3/uL Sodium (137-145) mmol/L BUN (9-20) mg/dL Creatinine (0.66-1.25) mg/dL Glucose (74-99) mg/dL POC Glucose (mg/dL) 149 H 124 H (70-110) mg/dL Phosphorus (2.5-4.5) mg/dL
[2024-10-12 23:41] LABS: Glucose,Whole Blood 130 mg/dL (70-110)
[2024-10-13 05:57] LABS: Glucose,Whole Blood 131 mg/dL (70-110)
[2024-10-13 06:24] LABS: Basophils # (A) 0.03 10*3/uL (0.00-0.10); Basophils % (A) 0.7 %; Eosinophils # (A) 0.10 10*3/uL (0.04-0.35); Eosinophils % (A) 2.2 %; HCT 26.9 % (39.6-50.0); HGB 8.1 g/dL (13.0-17.0); Lymphocytes # (A) 1.04 10*3/uL (0.90-5.00); Lymphocytes % (A) 22.9 %; MCH 27.2 pg (27.0-32.0); MCHC 30.1 g/dL (32.0-37.0); MCV 90.3 fL (80.0-97.0); Monocytes # (A) 0.60 10*3/uL (0.20-1.00); Monocytes % (A) 13.2 %; Neutrophils # (A) 2.75 10*3/uL (1.80-7.70); Neutrophils % (A) 60.6 %; Platelet Count 243 10*3/uL (140-440); RBC 2.98 10*6/uL (4.40-5.60); RDW 18.2 % (11.5-14.5); WBC 4.54 10*3/uL (4.50-10.00)
[2024-10-13 06:47] LABS: Potassium 3.5 mmol/L (3.5-5.1)
[2024-10-13 06:48] LABS: African American GFR (CKD) 46 (>60 ml/min/1.73 sqM); Anion Gap 11 mmol/L; Blood Urea Nitrogen 63 mg/dL (9-20); Calcium 9.0 mg/dL (8.4-10.2); Carbon Dioxide 24 mmol/L (22-30); Chloride 100 mmol/L (98-107); Glucose 137 mg/dL (74-99); Magnesium 1.9 mg/dL (1.6-2.3); Non-African American GFR(CKD) 40 (>60 ml/min/1.73 sqM); Sodium 135 mmol/L (137-145)
[2024-10-13] MEDS: HYDROCORTISONE 10 MG TAB PO SCH (10:08)
[2024-10-13] MEDS: POTASSIUM CHLORIDE 20 MEQ in WATER FOR INJECTION 1 100ML.BAG IVPB SCH (10:08)
[2024-10-13 10:25] LABS: Triglycerides 210.00 mg/dL (0.00-149.00)
--- NOTE | 2024-10-13 12:07 | P.PN ---
Subjective Progress Note Date: 10/13/24 Principal diagnosis: Pneumonia. This is a 49-year-old white male familiar to my service, history of paraplegia, home vent dependent, history of tracheostomy, patient had multiple admissions to the ICU for recurrent episodes of pneumonia and respiratory failure requiring ventilatory support. On his last admission patient was eventually discharged home on a home ventilator, and this was back on 08/04/2024. Patient was discharged home with a PICC line, patient was in the ER yesterday on 08/28 for abnormal labs mostly low potassium and low sodium discharged home however he cam e back today complaining of shortness of breath, has been ventilator dependent all along. Chest x-ray showed basically bibasilar opacities/atelectasis, doubt pneumonia, the findings in the left lower lobe are chronic. Patient did have previous history of pneumonia involving the left lower lobe and he had multiple bronchoscopies in the past. Bronchial cultures and sputum cultures have been positive in the past for mostly Pseudomonas aeruginosa. Patient was seen in the ER today, and he is already on cefepime for empiric coverage for potential left lower lobe pneumonia, patient had abnormal electrolytes with relatively low sodium low potassium, no leukocytosis, normal renal profile, blood pressure was soft, and he was given fluid boluses. Lactic acid was 2.1, D-dimer is normal, patient was admitted, and this consult was initiated. 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 Patient was seen today on 08/30/2024, patient continues to have intermittent episodes of fever with Tmax of 102, patient required norepinephrine and he remains on norepinephrine at 0.04 mcg/kg/min remains on LR at 130 cc/h remains on his home ventilator at tidal volume of 450 rate of 20 FiO2 45% and PEEP of 5. Seems comfortable, not in distress, his WBC is 3.5 hemoglobin 10.0 electrolytes are normal renal profile is normal potassium is borderline low. Patient remains on cefepime, vancomycin was added because of his previous history of MRSA, and is on cefepime for previous history of pseudomonal infection and now that the patient may be septic it is more of a reason to broaden the spectrum of antibiotics coverage with cefepime and vancomycin. Sputum cultures and blood cultures are pending. Patient does have history of pseudomonal and history of MRSA infections, and I discontinued his Zithromax today replace Zithromax with vancomycin. Viral screen is negative Legionella antigen is negative. Chest x- ray is relatively unchanged continues to show bibasilar opacities atelectasis/pneumonia. Progress note dated August 31, 2024. The patient is seen today in room 252. The patient was admitted a couple days ago, to the intensive care unit. The patient is currently on mechanical ventilator, actually his home ventilator. He is on volume assist-control, rate 20, tidal volume 450, FiO2 45% PEEP of 5. The patient is getting lactated Ringer's at 130 cc an hour, TPN at 91 cc an hour, norepinephrine at 8 mcg/min. Doppler of the left upper extremity was negative. He continues on Zerbaxa, and vancomycin. We will check a procalcitonin level. Cultures thus far are negative. He does have a previous history of methicillin-resistant Staph aureus infection, and pseudomonal infections. White count was 2.21, hemoglobin 9.3, hematocrit 32, platelet count 1 61,000. D-dimer was 5.78. Sodium 132, potassium 4.3, chlorides 106, CO2 21, BUN 18, creatinine 0.28. Glucose was 141. Calcium 7.8. C. difficile study was negative. Urine Legionella antigen was negative. Microbiologic studies are currently negative. Chest x-ray shows bibasilar airspace opacities, possibly consistent with pneumonia. 09/01/24 - The patient is seen today in room 252. Admitted to the hospital and the intensive care unit on 08/29/2024. The patient is currently on mechanical ventilator, his one from home. He is on volume assist control, rate of 20, tidal volume of 450, FiO2 45% and PEEP of 5. He currently has LR running at 50 cc/h, TPN at 91 cc/h, Zerbaxa and tobramycin. Chest Xray done this morning showed stable airspace opacities. Cultures are positive for pseudomonas aeruginosa, awaiting sensitivities. WBCs 2.69, Hgb 8.9, Hct 31.5, PLT 153, Na 135, K 3.4, Cl 109, HCO3 19, BUN 22, Cr 0.34, Phos 2.4. 09/02/24 - He is seen today in room 252. Admitted to the hospital and ICU on 08/29/24. He continues on mechanical ventilator, his one from home. He remaines on volume assist control, rate of 20, tidal volume of 450, FiO2 45% and PEEP of 5. He continues to have LR running at 50 cc/h, TPN at 91 cc/h, norepinephrine at 0.13 mcg/kg/min, Zebraxa and Tobramycin. Chest XRay this morning showed stable airspace opacities. Continue to await sensitivity of pseudomonas sputum culture. Lab work shows WBCs 3.64, Hgb 9.7, Hct 33.5, PLT 130, Na 133, K 3.9, bicarb 21, BUN 23, Cr 0.36, Ca 7.8, Mg 2.4, Albumin 2.3. 09/03/24 - He is seen in room 252. Admitted to the hospital and ICU on 08/29/24. He continues on mechanical ventilator, his one from home. He remaines on volume assist control, rate of 20, tidal volume of 450, FiO2 45% and PEEP of 5. He continues to have LR running at 50 cc/h, TPN at 91 cc/h, norepinephrine at 0.24 mcg/kg/min, Avycaz and Tobramycin. Zebraxa was discontinued as there was no reported sensitivity to it. Lab work shows WBCs 9.40, Hgb 8.8, Hct 30.6, PLT 100, Na 130, K 3.6, bicarb 23, BUN 25, Cr 0.51, Ca 7.8, Ionized Ca 4.6, Phos 3.3, Mg 2.1, TSH 2.710 and random cortisol 13.1. 09/04/24 - He is seen in room 252. Admitted to the hospital and ICU on 08/29/24. He continues on mechanical ventilator, his one from home. He remaines on volume assist control, rate of 20, tidal volume of 450, FiO2 45% and PEEP of 5. He continues to have LR running at 50 cc/h, TPN at 91 cc/h, norepinephrine at 0.24 mcg/kg/min, Avycaz and Tobramycin. Lab work shows sodium 133, potassium 3.5, bicarb 24, BUN 27, creatinine 0.47, calcium 7.9, ionized calcium 4.6, magnesium 1.9, phosphorus 3.0, total bilirubin 1.7, AST 57, ALT 45, alkaline phosphatase 99. Progress note dated September 05, 2024. 49-year-old male well-known to our service. He is seen today in room 252. He continues on volume assist-control, rate 20, tidal 450, FiO2 45%, PEEP of 5. The patient has refused blood gases. Currently, he is getting TPN at 65 cc an hour, norepinephrine at 1 mcg/min, LR at 50 cc/h. Clinically, the patient is doing well. His chest x-ray remains about the same. Yesterday he was on a higher dose of norepinephrine, and also was on vasopressin. Both have been weaned off. Current labs include a sodium 136, potassium 4.1, chlorides 101, CO2 28, BUN 30, creatinine 0.37. Glucose 153. Albumin is 2.2. Previous sputum, from August 29 with positive for Pseudomonas aeruginosa. Chest x-ray is largely unchanged. Progress note dated September 06, 2024. 49-year-old male again seen today in the intensive care unit, room 252. He remains on mechanical ventilator, actually his home ventilator, with settings of volume assist-control, rate 20, tidal volume 450, FiO2 45%, PEEP of 5. No blood gases today. The patient has been refusing. He is getting lactated Ringer's at 50 cc an hour, TPN at 65 cc an hour. He continues on the same antibiotics. White count 5.21, hemoglobin 7.9, hematocrit 27.5, and platelet count 64,000. Sodium 141, potassium 3.5, chlorides 102, CO2 32, BUN 25, and creatinine 0.35. Glucose is 152. Calcium is 8. Albumin is 2.1. Chest x-ray is largely unchanged. Patient was seen today on 09/16/2024, patient is basically about the same. Hardly any improvement noted in the last few weeks since admission, patient remains intubated, mechanically ventilated, same ventilator settings, assist-control rate of 20 tidal volume 450 FiO2 60% and PEEP of 8 ABG was not done today, no easy access, attempted to place arterial lines in this patient, but could not pass a wire although the arteries including femoral artery and left brachial artery were easily cannulated. No further attempts made for arterial access. Patient remains on norepinephrine at 0.13 mcg/kg/min still on TPN at 75 cc/h still on Zerbaxa and vancomycin chest x-ray showed worsening today of bilateral infiltrates possibly some component of fluid overload and I recommended Lasix 20 mg IV push twice daily. Patient seems to be quite swollen and edematous. WBC count is 5.4 hemoglobin 7.6 electrolytes showed sodium of 146 potassium 4.1 BUN 20 creatinine 0.47 Patient was seen today on 09/17/2024, patient seems to be deteriorating steadily over the last 24 hours, he is developing profound hypotension requiring pressors in the form of Levophed at 0.4 mcg/kg/min he is also on vasopressin at 0.04 units/min he is on TPN at 75 cc/h hemoglobin is noted to be low at 6.9, patient has positive yeast in the blood/fungemia he is on fluconazole, this is being addressed by infectious disease on the case. Earlier ABG showed a pO2 of 77 pCO2 88 pH of 7.13, Vent settings were adjusted with increasing the rate to 36. He is now on tidal volume of 350 FiO2 100% PEEP is 10 and rate is 36. Another ABG is pending. But clearly patient is taking a downhill clinical course. Patient is quite septic, I will likely change his central line, and place a new central line in this patient today and remove the old central line/PICC line. Patient will receive a unit of packed RBCs for hemoglobin of 6.9. Considering the change in his overall clinical status, discussed his condition with son, would like to keep his dad as a full code, he is very well aware of the poor prognostic picture and how ill his dad is. Would like to keep him a full code. WBC count today is 20.03 hemoglobin 8.5, basic metabolic profile is normal BUN is 25 creatinine 0.4 total protein is 6.9 albumin is 1.9. Patient was seen today on 09/18/24, remains in the ICU, intubated and mechanically ventilated. Patient is still requiring assist-control rate of maximal ventilatory support with rate of 36 tidal volume increased today up to 400 FiO2 decreased from 100% to 70% PEEP remains at 12. Earlier ABG before changes were made at the FiO2 had been on tidal volume showed a pO2 of 77 pCO2 68 pH of 7.20. Patient is still requiring norepinephrine and I have been titrating the norepinephrine earlier this morning he is down to 0.18 from 0.46 yesterday micrograms per kilo per minute vasopressin is still at 0.04 units/min patient is on propofol at 50 mcg/kg/min Lasix drip at 20 mg/h and TPN at 75 cc/h. I am also treating the patient with vancomycin, Zerbaxa, and Eraxis was added to replace fluconazole yesterday by infectious disease specially with his positive blood cultures for Bella. Urine output is improving with the Lasix drip, he did not improve much with 1 dose of Lasix 60 mg IV push. Remains on Solu-Cortef at 100 mg IV push every 8 hours patient is in positive fluid balance about 6 L hence I decided to go with Lasix drip today. Labs today showed slight improvement in his WBC count down to 14.9 hemoglobin is 7.6, electrolytes are abnormal with a potassium of 6.1 BUN is 45 creatinine 0.82 chest x-ray continues show bilateral interstitial edema/infiltrates, could be cardiogenic or noncardiogenic pulmonary edema I believe it is mostly cardiogenic/related to fluid overload as he received significant fluids yesterday for low blood pressure. And he was not making much urine in the last 24 hours. Hence Lasix drip was started today. Patient was seen today on 09/19/2024, remains in the ICU, remains intubated and mechanically ventilated. Patient is on assist-control rate of 36 tidal volume 400 FiO2 65% and PEEP of 12. His ABG showed a pO2 of 142 pCO2 52 pH of 7.28, hence cut down his FiO2 down to 50%. The PEEP at 12. Patient remains hemodyn amically unstable, remains on norepinephrine at 0.08 mcg/kg/min, his vasopressin has been discontinued. TPN is at 75 cc/h. Remains on Lasix drip/infusion at 20 mg/h. He is on propofol at 50 mcg/kg/min remains on Solu-Cortef 50 mg every 8, Eraxis, Zerbaxa, vancomycin. Urine output is marginal at about 10 to 20 cc/h in spite of Lasix drip. Lovenox will be resumed today at 80 mg subcu twice daily. Patient is sedated, his overall clinical status is showing slight improvement compared to the clinical status couple of days ago. Chest x-ray continues to show evidence of interstitial edema although the possibility of ARDS is not entirely ruled out considering his overall septic picture. CBC is about the same with WBC of 7.7 hemoglobin 7.1. Platelets are 128,000. Basic metabolic profile is normal potassium is down to 5.2 BUN is 67 creatinine is slightly higher today 1.13. Blood sugar is 358. Patient was seen today on 09/20/2024, remains in the ICU intubated mechanically ventilated. On assist-control rate of 36 tidal volume 400 FiO2 50% PEEP of 12, no ABG done today, however his O2 saturation is in the high 90s about 98%. Patient had a low hemoglobin today and he will need a unit of blood/packed RBCs for low hemoglobin. No active bleeding noted, Hemoccult stools will be done t lizette. Patient remains on Eraxis and Zerbaxa, his vancomycin was discontinued remains on lower dose of Solu-Cortef 50 mg IV push every 12 hours. Continues to have poor urine output and his renal functioning is getting a bit worse. Nephrology was consulted, patient received initially significant amount of fluids for his presentation of sepsis, and he remained oliguric in spite of fluid boluses. Then he was placed on Lasix drip which initially was working fine, now that urine output is rather marginal and spite of Lasix drip at 20 mg an hour. I am recommending a trial of albumin followed by 80 mg of Lasix IV push. And hopefully his urine output will car pick up driver with the albumin and with the blood transfusion which is scheduled to be done soon. Vancomycin has been discontinued. Chest x-ray continues to show evidence of interstitial edema. Labs are reviewed his potassium is 5 bicarb is 20 BUN is 83 creatinine 1.49 platelets are 105 hemoglobin 6.3. Progress note dated September 21, 2024. The patient remains on volume assist-control, rate 36, tidal volume 400, FiO2 50%, PEEP of 12. Blood gases were not obtained. He continues on TPN at 75 cc an hour, propofol at 50 mcg/kg/min, saline at 10 cc an hour, and norepinephrine is currently on hold. Antibiotic douglas, he continues on vancomycin, and Eraxis. White count is 6.9, hemoglobin 7.6, hematocrit 24.3, and platelet count 115,000. Sodium 137, potassium 5.1, chlorides 103, CO2 18, anion gap 16, BUN 99, creatinine 1.58. Glucose is 228. Calcium 8.1, phosphorus 5.4, magnesium 2.5. Culture data shows evidence of Pseudomonas aeruginosa back on August 29, Pseudomonas in the bronchial washings on September 07, and blood cultures positive, September 18, currently pending. Chest x-ray is largely unchanged, shows patchy diffuse airspace opacities, with a small right-sided pleural effusion. Progress note dated September 22, 2024. The patient is seen today in room 252. He remains on volume assist-control. Settings include volume assist-control 36, tidal volume 400, FiO2 50%, PEEP of 12. He is getting propofol at 50 mcg/kg/min, norepinephrine at 3 mcg/min, and TPN at 75 cc an hour. He is having hemodialysis today. The goal is removal of 1 to 2 L of fluid. He continues on Eraxis. We were able to place a right radial arterial line. We will repeat a blood gas, after hemodialysis. Current laboratory data includes a white count 7.4, hemoglobin 7.3, hematocrit 23.4, and a platelet count of 114,000. Sodium 134, potassium 5.4, chlorides 104, CO2 15, anion gap 15, BUN 110, creatinine 1.79. Glucose is 153. Calcium is 8.3. Previous blood in sputum sampling, showed evidence of Pseudomonas aeruginosa. The patient also has previous blood culture showing evidence of Bella species. Chest x-ray today is largely unchanged. Progress note dated September 23, 2024. 49-year-old male seen today in room 252. He remains on mechanical ventilation. He is on volume assist-control, rate 36, tidal volume 400, FiO2 40%, PEEP of 12. Blood gases show pO2 100, pCO2 44, pH is 7.30. Patient continues on norepinephrine at 5.6 mcg/min, propofol at 50 mcg/kg/min, TPN at 33 cc an hour. He is getting saline at 10 cc an hour. He had hemodialysis yesterday, September 22, and 1 L of fluid was removed. He continues on Eraxis, as per infectious diseases. White count is 9.0, hemoglobin 7.7, hematocrit 24, and platelet count is 155,000. Sodium 132, potassium 4.5, chlorides 96, CO2 20, anion gap 16, BUN 80, and creatinine 1.69. Glucose is 145. Calcium 8.5. Most recent blood cultures, on September 18, were positive for Bella. Today's chest x-ray is largely unchanged. Progress note dated September 24, 2024. 49-year-old male seen today in room 252. The patient continues on life support, IV volume assist-control, rate 36, tidal volume 400, FiO2 40%, PEEP of 12. Blood gases show pO2 100, pCO2 42, pH is 7.39. The patient is getting propofol at 15 mcg/kg/min, norepinephrine at 4 mcg/min, TPN at 33 cc an hour, and saline at 10 cc an hour. The patient's hemoglobin is 7. He continues on Eraxis. The patient static lung compliance is 23.5 mL/cm water. He has very stiff lungs. White count is 6.7, hemoglobin 7, hematocrit 22.4, platelet count 158,000. Sodium 130, potassium 4, chlorides 95, CO2 22, anion gap 13, BUN 58, creatinine 1.52. Glucose is 114. Calcium 8.3. Magnesium 1.7. No recent new culture data. Chest x-ray is about the same as it was a day before. It shows right basilar airspace opacities, with a small right-sided pleural effusion. There was some interstitial prominence. Progress note dated September 25, 2024. 49-year-old male seen today in room 252. He remains on volume assist-control, rate 36, tidal volume 400, FiO2 30%, and PEEP of 12, to be dropped to a PEEP of 8. Blood gases show pO2 of 82, pCO2 36, pH of 7.49. The patient is on TPN at 33 cc an hour, propofol at 30 mcg/kg/min, and norepinephrine at about 3 mcg/min. He is having hemodialysis today. Goal is to remove 2 to 3 L if tolerated. The patient continues on Eraxis. White count 7.5, hemoglobin 7.6, hematocrit 23.9, and platelet count of 194,000. Sodium 129, potassium 3.5, chloride 94, CO2 24, anion gap normal, BUN 35, creatinine 1.06. Glucose is 115. Albumin is 2.5. Recent blood cultures are positive for Bella. Chest x-ray is largely u nchanged. There is right basilar airspace disease, with a small right-sided pleural effusion. Progress note dated September 26, 2024. 49-year-old male seen today in room 252. He remains on volume assist-control, rate 36, tidal volume 400, FiO2 30%, PEEP of 8. Blood gases show pO2 of 73, a PCO2 of 34, and a pH of 7.54. He continues on propofol at 20 mcg/kg/min, norepinephrine at approximately 2 mcg/min, TPN at 33 cc an hour. The patient does continue on Eraxis, for fungemia. Current labs showed a white count of 7.32, hemoglobin 7.5, hematocrit 23.7, and a normal platelet count. Sodium 132, potassium 3.4, chloride 79, CO2 25, anion gap 8, BUN 22, and creatinine 0.87. Chest x-ray shows bilateral infiltrates, consistent with either pneumonia, or fluid overload. The chest x-ray is largely unchanged from the prior x-ray. Progress note dated September 27, 2024. 49-year-old male again seen in room 252. He remains on mechanical ventilation. He is on volume assist-control, rate 36, tidal volume 400, FiO2 30%, PEEP of 8. Blood gases show PO279, PCO2 of 34, pH is 7.54. The patient continues on propofol at 20 mcg/kg/min, norepinephrine at 2 mcg/min, TPN at 33 cc an hour. He had hemodialysis yesterday, 3 L was removed. He continues on Eraxis. In that regard, I did ask the nurse to call the infectious disease doctor, to get a stop date on this medication. White count 6.9, hemoglobin 7.8, hematocrit 24.8, platelet count 224,000. Sodium 131, potassium 3.4, chloride 97, CO2 26, anion gap 8, BUN 19, and creatinine 0.87. Calcium is 8.1. Chest x-ray, in my opinion, is improved. Patient was seen today on 10/09/2024, remains in the ICU, intubated mechanically ventilated, awake, off propofol, not requiring any pressors at this point, patient remains on assist-control rate of 24 tidal volume 400 FiO2 30% and PEEP of 5 patient is receiving hemodialysis during my evaluation. Remains on TPN at 85 cc/h. Chest x-ray is showing improvement in his bilateral airspace disease. Patient remains on Solu-Cortef, and I changed that to oral 25 mg p.o. twice daily. Labs today showed WBC count of 6.2 hemoglobin 8.7 electrolytes are normal BUN is 79 creatinine 2.02 Patient was seen today on 10/10/2024, remains in the ICU intubated mechanically ventilated, on assist-control rate of 24 tidal volume 400 FiO2 30% PEEP of 5 no ABG has been done today. Patient remains on TPN at 85 cc/h. Patient remains on hemodialysis Saturday and Saturday patient had a swallow evaluation and recommendation was chopped diet. We have placed the patient yesterday on Cortef orally. Remains on heparin subcu. He is hemodynamically stable, not requiring any pressors. Chest x-ray. Continues to show stable chest. Small pleural effusions noted. WBC count is 5.8 hemoglobin 8.2 electrolytes showed low sodium 129 potassium 3.5 BUN 55 creatinine 1.59 Patient was seen today on 10/11/2024, patient remains in the ICU intubated mechanically ventilated, on assist-control rate 24 with tidal volume 400 FiO2 30% PEEP of 5 patient is resting, he is not in any distress he is not requiring any pressors TPN is at 85 cc/h. CBC is basically unremarkable hemoglobin is 8.9 electrolytes are normal BUN is 84 creatinine 2.44. Clinically I believe this is the best I have seen this patient since his last admission. Chest x-ray showed minimal basilar atelectasis especially at the left base. This is relatively chronic. Progress note dated October 12, 2024. 49-year-old male who is now been in the hospital for 49 days. The patient was last seen by me on September 27. Currently, he remains on mechanical ventilation. He is on volume assist-control, rate 24, tidal volume 400, FiO2 30%, PEEP of 5. The patient is not receiving any IV fluids, or antibiotics. The patient is scheduled to have hemodialysis today. He is getting TPN at 85 cc an hour. His last hemodialysis session was last Saturday, and 3 L was removed. He is stable on the ventilator. His peak airway pressure is 27 cm of water. His plateau pressure of 17 cm of water. Current labs with a white count of 4.55, hemoglobin 8.1, hematocrit 25.1, platelet count 141,000. Sodium 136, potassium 5.1, chlorides 101, CO2 23, BUN 108, and creatinine 2.81. Anion gap is 12. Glucose is 155. Chest x-ray is largely unchanged. According to the nurses, the patient had an uneventful night. Progress note dated October 13, 2024. 49-year-old male, seen today in room 252. He is now been in the hospital for 50 days. The patient is doing about the same. He had an uneventful night according to the nurses. He remains on mechanical ventilation. Vent settings include volume assist-control, rate 24, tidal volume 400, FiO2 30%, PEEP of 5. There were no blood gases done. He does not have an arterial line. Also, he refused a chest x-ray today. The patient is currently on TPN at 85 cc an hour. Current labs good a white count of 4.5, hemoglobin 8.1, hematocrit 26.9, platelet count 243,000. Sodium 135, potassium 3.5, chlorides 100, CO2 24, anion gap 11, BUN 63, creatinine 1.94. Glucose is 137. Objective - Vital Signs Vital signs: Vital Signs Temp 98.3 F 10/13/24 00:00 Pulse 106 H 10/13/24 11:43 Resp 28 H 10/13/24 11:43 BP 134/57 10/13/24 06:21 Pulse Ox 95 10/13/24 06:21 FiO2 30 10/13/24 11:40 Intake & Output 10/12/24 10/13/24 10/13/24 18:59 06:59 18:59 Intake Total 1420 1080 Output Total 8470 1830 Balance -7050 -750 Weight 87.6 kg Intake: IV 1020 1020 TPN 1020 1020 Oral 60 Hemodialysis 400 Output: Urine 70 30 Stool 800 1800 Hemodialysis 4000 Hemodialysis Net Amount 3600 Other: Voiding Method Indwelling Catheter Indwelling Catheter ABP, PAP, CO, CI - Last Documented Arterial Blood Pressure - Exam No acute distress, currently connected to the ventilator. He has a tracheostomy tube in place. HEENT examination is grossly unremarkable. Mucous membranes are moist. No oral lesions. Neck supple. Full range of motion. No adenopathy thyromegaly or neck vein distention. Cardiovascular examination reveals regular rhythm rate. S1-S2 normal. No S3 or S4. No discernible murmur noted. Lungs reveal scattered rhonchi and crackles. No wheezes. Breath sounds equal bilaterally. Abdomen reveals an enterocutaneous fistula, normal bowel sounds. No tenderness. No masses. Extremities are intact. No cyanosis clubbing or edema. Right below the knee amputation. Has a right radial arterial line. Skin is without rash or lesion. Neurologic examination is brief but nonfocal. He does have significant muscle atrophy, and contractures. He has a right below the knee amputation. - Labs CBC & Chem 7: 10/13/24 06:07 10/13/24 06:07 Labs: Abnormal Lab Results - Last 24 Hours (Table) 10/12/24 10/12/24 10/12/24 Range/Units 12:45 18:14 23:40 RBC (4.40-5.60) 10*6/uL Hgb (13.0-17.0) g/dL Hct (39.6-50.0) % MCHC (32.0-37.0) g/dL Sodium (137-145) mmol/L BUN (9-20) mg/dL Creatinine (0.66-1.25) mg/dL Glucose (74-99) mg/dL POC Glucose (mg/dL) 149 H 124 H 130 H (70-110) mg/dL Triglycerides (0.00-149.00) mg/dL 10/13/24 10/13/24 10/13/24 Range/Units 05:55 06:07 06:07 RBC 2.98 L (4.40-5.60) 10*6/uL Hgb 8.1 L (13.0-17.0) g/dL Hct 26.9 L (39.6-50.0) % MCHC 30.1 L (32.0-37.0) g/dL Sodium 135 L (137-145) mmol/L BUN 63 H (9-20) mg/dL Creatinine 1.94 H (0.66-1.25) mg/dL Glucose 137 H (74-99) mg/dL POC Glucose (mg/dL) 131 H (70-110) mg/dL Triglycerides 210.00 H (0.00-149.00) mg/dL Assessment and Plan Assessment: Septic shock, likely secondary to Pseudomonas pneumonia, resolved. Possible fungemia, completed Eraxis. Chronic hypoxemic and hypercapnic respiratory failure, ventilator dependent, on a home ventilator, S/P tracheostomy. Left lower lobe atelectasis, possible pneumonia, with pseudomonal infection. History of severe tracheal stenosis, S/P tracheostomy. History of recurrent pneumonia, involving the left lower lobe. Tracheobronchomalacia. History of DVT. History of CVA. History of right below-knee amputation. Previous history of asystole/cardiac arrest, 2021. History of Crohn's disease, S/P enterocutaneous fistula, diverting ileostomy. Plan: Plan dated August 31, 2024. The patient is seen today in room 252. The patient's weight had on fluids, and the lactated Ringer's is cut back to 40 cc an hour. The patient will get 1 dose of Lasix IV push. Ventilator settings are noted. No blood gases today. It was apparently refused by the patient. Doppler of the left upper extremity was negative for DVT. Will check a procalcitonin level. The patient continues on norepinephrine at 8 mcg/min. He is getting TPN at 91 cc an hour. We will continue to follow make recommendations along the way. Labs, x-rays, and all medications are reviewed. Prognosis is certainly guarded. Dictation was produced using [employer] software. Please excuse any grammatical, word or spelling errors. Plan dated September 05, 2024. The patient is seen today in room 252. He is connected to his home mechanical ventilator. Settings of the same and include volume assist-control, rate 20, tidal volume 450, FiO2 45%, PEEP of 5. The patient is getting TPN at 65 cc an hour, norepinephrine has been weaned down to 1 mcg/min. He is getting lactated Ringer's at 50 cc an hour. He continues on Avycaz and tobramycin. We will continue to follow make recommendations. The patient also continues on hydrocortisone, for relative adrenal insufficiency. Prognosis is certainly guarded. We will continue to follow. Dictation was produced using [employer] software. Please excuse any grammatical, word or spelling errors. Plan dated September 06, 2024. The patient is seen today in room 252. He continues on mechanical ventilation. The patient is having increased secretions. Will add a scopolamine patch. He continues on Avycaz, and tobramycin. In addition, he continues on TPN at 65 cc an hour, and lactated Ringer's at 50 cc an hour. All labs, x-rays, and medications are reviewed. Chest x-ray is unchanged. We will continue to follow make recommendations. Prognosis is guarded. Dictation was produced using [employer] software. Please excuse any grammatical, word or spelling errors. Plan dated September 21, 2024. The patient is again seen today in room 252, with presumed ongoing sepsis. The patient has norepinephrine on standby, for blood pressure support, and recently was maxed out on multiple vasopressors. Currently, the patient continues on Eraxis, and vancomycin. The patient also continues on TPN at 75 cc an hour, propofol at 50 mcg/kg/min. All labs, x-rays, medications are reviewed. The patient's overall prognosis remains very poor. We will continue to follow. He remains a full code. Dictation was produced using [employer] software. Please excuse any grammatical, word or spelling errors. Plan dated September 22, 2024. The patient was seen to get her up to 52. We were able to place a right radial art line in the patient. There was good blood return from the arterial line, although the waveform was dampened. The patient continues on appropriate medications, including propofol at 50 mcg/kg/min, norepinephrine at 3 mcg/min. The patient is also getting TPN at 75 cc an hour. He is receiving hemodialysis today. He continues on Eraxis. After hemodialysis, the patient will have a arterial blood gas. Additional recommendations and suggestions are forthcoming. Prognosis is guarded. All labs, x-rays, and medications are reviewed. We will continue to follow the patient, make recommendations. Dictation was produced using [employer] software. Please excuse any grammatical, word or spelling errors. Plan dated September 23, 2024. The patient is again seen today in room 252. The patient's blood gases show pO2 100, pCO2 44, pH of 7.31. Patient continues on norepinephrine at 5.6 mcg/min, propofol at 50 mcg/kg/min. The patient is getting TPN at 33 cc an hour. The patient continues on Eraxis. He had hemodialysis yesterday. All labs, x-rays, and medications are reviewed. The patient remains a full code. Will continue to follow the patient, make recommendations along the way. Prognosis is guarded. Dictation was produced using [employer] software. Please excuse any grammatical, word or spelling errors. Plan dated September 24, 2024. According to the nurses, the patient had an uneventful night. He continues on volume assist-control, with a rate of 36, tidal volume 400, FiO2 40%, PEEP of 12. Blood gases are adequate with a pO2 of 100, pCO2 of 42, pH of 7.39. The patient continues on sedation with propofol at 50 mcg/kg/min. For his lower blood pressure, he is on norepinephrine at 4 mcg/min. He continues on parenteral nutrition, with TPN at 33 cc an hour. He also continues on Eraxis for fungemia. Hemoglobin is 7. No transfusion at this time. All labs, x-rays, and medications are reviewed. We will continue to follow the patient, make recommendations. The patient's overall prognosis remains poor. Dictation was produced using [employer] software. Please excuse any grammatical, word or spelling errors. Plan dated September 25, 2024. The patient is seen today in room 252. He continues on Eraxis. The patient continues on mechanical ventilation. Labs, x-rays, and medications are reviewed. We will continue to follow the patient, make recommendations. He is getting TPN at 33 cc an hour, and propofol at 30 mcg/kg/min. He continues on norepinephrine at about 3 mcg/min. He is having hemodialysis today. The goal is to remove somewhere between 2 to 3 L of fluid, pending his blood pressure response. The patient will be dropped from 12 cm of water down to 8 cm of wate r. Blood gases have been reviewed. All labs, x-rays, and medications have been reviewed. We will continue to follow. Prognosis is guarded. Dictation was produced using [employer] software. Please excuse any grammatical, word or spelling errors. Plan dated September 26, 2024. The patient is seen today, in room 252. The patient remains on mechanical ventilation. Blood gases are reasonable. All labs, x-rays, and medications are reviewed. The patient continues on propofol at 20 mcg/kg/min, and norepinephrine at roughly 2 mcg/min. We will continue to follow make recommendations. He is being nursed with TPN at 33 cc an hour. 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 Prognosis is guarded. Dictation was produced using [employer] dictation software. Please excuse any grammatical, word or spelling errors. Plan dated September 27, 2024. The patient was seen today in room 252. She remains on mechanical ventilation. Blood gases are reviewed. PO279, [id number], pH of 7.54. Labs, x-rays, and all medications are reviewed. He continues on propofol at 20 mcg/kg/min, and a small dorsal norepinephrine at 2 mcg/min. Is getting TPN at 33 cc an hour. He continues on Eraxis. He had hemodialysis yesterday. 3 L was removed. All labs, x-rays, and medications are reviewed. We will continue to follow the patient, make recommendations. Dictation was produced using [employer] software. Please excuse any grammatical, word or spelling errors. Plan dated October 12, 2024. The patient is again seen in the intensive care unit. He remains critically ill on mechanical ventilator. He remains on volume assist-control, rate 24, tidal volume 400, FiO2 30%, PEEP of 5. He is getting TPN at 85 cc an hour. He is currently not on any antibiotics, or antifungals. He is scheduled to have hemodialysis today. His last hemodialysis session was last Saturday, and 3 L was removed. Currently he is stable on the ventilator. His peak airway pressure is 27, with a plateau pressure of 17. Labs, x-rays, and all medications are reviewed. The patient is currently being evaluated for transfer to another facility, but that will not happen before October 16, when apparently new insurance kicks in. We will continue to follow make recommendations. Prognosis is poor. Dictation was produced using [employer]ation software. Please excuse any grammatical, word or spelling errors. Plan dated October 13, 2024. The patient is again seen today in room 252, in the intensive care unit. The patient remains on mechanical ventilation. He is on volume assist-control, rate 24, tidal volume 400, FiO2 30%, PEEP of 5. No blood gases today. The patient also refused a chest x-ray today. He is getting TPN at 85 cc an hour. No addition of fluids. He is not on any antibiotics. He has completed all of that. Labs, x-rays, and medications are all reviewed. We will continue to follow the patient, make recommendations were appropriate. The discharge planners are hoping to be able to get the patient discharged eventually, once his new insurance, becomes available. Prognosis is certainly guarded. We will continue to follow. Dictation was produced using [employer]ation software. Please excuse any grammatical, word or spelling errors. Time with Patient: Greater than 30
[2024-10-13 12:17] LABS: Glucose,Whole Blood 153 mg/dL (70-110)
[2024-10-13 13:40] VITALS: BMI 27.7
--- NOTE | 2024-10-13 15:07 | P.PN ---
Subjective Progress Note Date: 10/13/24 Principal diagnosis: Reason for follow-up is sepsis and pneumonia/candidemia Patient is a 49-year-old male with a past medical history significant for CVA TIA DVT pneumonia history of complicated Crohn's disease in this patient who did have multiple abdominal surgeries patient also have a tracheostomy has been brought to the hospital with Generalized weakness did have a fever concerning for pneumonia on today's evaluation that is 10/13/2024 patient continues to be afebrile patient is currently on ventilator intubated through the trach FiO2 stable at 30% no significant tenderness the patient does not have any other changes reported by the nursing staff Patient white count is 4.54 creatinine is 1.94 Objective - Vital Signs Vital signs: Vital Signs Temp 99.0 F 10/13/24 08:00 Pulse 104 H 10/13/24 14:00 Resp 27 H 10/13/24 14:00 BP 143/67 10/13/24 14:00 Pulse Ox 98 10/13/24 14:00 FiO2 30 10/13/24 14:00 Intake & Output 10/12/24 10/13/24 10/13/24 18:59 06:59 18:59 Intake Total 1420 1080 880 Output Total 8470 1830 510 Balance -7050 -750 370 Weight 87.6 kg 87.6 kg Intake: IV 1020 1020 200 Potassium Chloride 20 meq 200 In Water For Injection 1 100ml.bag @ 50 mls/hr IVPB Q2H [facility] Rx#: [id number] TPN 1020 1020 Oral 60 TPN/PPN 680 Mvi, Adult No.4 with Vit 680 K 10 ml Trace (Conc-1Ml/ Dose) 1 ml Sodium Acetate 50 meq Sodium Chloride 4Meq/ml Vial 120 meq Potassium Chloride 10 meq Calcium Gluconate 0.5 gm Magnesium Sulfate gm 0.5 gm In Amino Acids 5 %/ Dextrose 20 % 1,000 ml @ 85 mls/hr IV .BY DURATION [facility] Rx#:[id number] Hemodialysis 400 Output: Urine 70 30 60 Stool 800 1800 450 Hemodialysis 4000 Hemodialysis Net Amount 3600 Other: Voiding Method Indwelling Catheter Indwelling Catheter ABP, PAP, CO, CI - Last Documented Arterial Blood Pressure - Exam GENERAL DESCRIPTION: Middle-age male intubated on the vent RESPIRATORY SYSTEM: Unlabored breathing , decreased breath sounds at bases HEART: S1 S2 regular rate and rhythm , ABDOMEN: Soft , no tenderness EXTREMITIES: Swelling to the leg - Labs CBC & Chem 7: 10/13/24 06:07 10/13/24 06:07 Labs: Abnormal Lab Results - Last 24 Hours (Table) 10/12/24 10/12/24 10/13/24 Range/Units 18:14 23:40 05:55 RBC (4.40-5.60) 10*6/uL Hgb (13.0-17.0) g/dL Hct (39.6-50.0) % MCHC (32.0-37.0) g/dL Sodium (137-145) mmol/L BUN (9-20) mg/dL Creatinine (0.66-1.25) mg/dL Glucose (74-99) mg/dL POC Glucose (mg/dL) 124 H 130 H 131 H (70-110) mg/dL Triglycerides (0.00-149.00) mg/dL 10/13/24 10/13/24 10/13/24 Range/Units 06:07 06:07 12:15 RBC 2.98 L (4.40-5.60) 10*6/uL Hgb 8.1 L (13.0-17.0) g/dL Hct 26.9 L (39.6-50.0) % MCHC 30.1 L (32.0-37.0) g/dL Sodium 135 L (137-145) mmol/L BUN 63 H (9-20) mg/dL Creatinine 1.94 H (0.66-1.25) mg/dL Glucose 137 H (74-99) mg/dL POC Glucose (mg/dL) 153 H (70-110) mg/dL Triglycerides 210.00 H (0.00-149.00) mg/dL Assessment and Plan (1) Pneumonia Current Visit: Yes Status: Acute Code(s): J18.9 - PNEUMONIA, UNSPECIFIED ORGANISM SNOMED Code(s): 727948076 (2) Sepsis Current Visit: Yes Status: Acute Code(s): A41.9 - SEPSIS, UNSPECIFIED ORGANISM SNOMED Code(s): 96876849 (3) Candidemia Current Visit: Yes Status: Acute Code(s): B37.7 - CANDIDAL SEPSIS SNOMED Code(s): 737443226 Plan: 1patient is a hospital with sepsis in this patient who did have fever tachycardia elevated lactic acid upon meeting criteria for SIRS/sepsis source likely pneumonia,patient is status post bronchoscopy lavage results currently growing Pseudomonas that is resistant to Avycaz and corynebacterium, which was vancomycin and Zyvox sensitive, patient completed antibiotic therapy for his pneumonia 2patient did have candidemia source is likely left chest wall PICC line which has been discontinued has been sent for the culture central line placed by assurance auditor, blood culture repeat on 09/18/2024 positive blood culture repeat 09/22/2024 so far negative. Subsequently patient did continue PICC line and the chest wall catheter was discontinued as repeat blood culture from 09/22/2024 remained to be negative 3patient has completed his course of Eraxis which was discontinued after 10/06/2024 dose, he also have a blood culture done on 10/05/2024 that remains to be negative, 4patient remains to be afebrile white count has been normal seem to be doing well off antibiotic/antifungal and will follow-up as needed from now onwards Dictation was produced using [employer] dictation software. please excuse any grammatical, word or spelling errors. Time with Patient: Less than 30
--- NOTE | 2024-10-13 15:07 | P.PN ---
Subjective Progress Note Date: 10/12/24 Principal diagnosis: Reason for follow-up is sepsis and pneumonia/candidemia Patient is a 49-year-old male with a past medical history significant for CVA TIA DVT pneumonia history of complicated Crohn's disease in this patient who did have multiple abdominal surgeries patient also have a tracheostomy has been brought to the hospital with Generalized weakness did have a fever concerning for pneumonia on today's evaluation that is 10/12/2024, patient has been afebrile, patient is breathing comfortably and is currently intubated on the vent through the trach FiO2 is currently stable at 30% no significant purulent secretion through the ET patient undergoing dialysis. Patient white count is 4.55, creatinine 2.81 Objective - Vital Signs Vital signs: Vital Signs Temp 98.4 F 10/12/24 08:00 Pulse 91 10/12/24 13:00 Resp 27 H 10/12/24 13:00 BP 137/77 10/12/24 13:00 Pulse Ox 99 10/12/24 13:00 FiO2 30 10/12/24 12:00 Intake & Output 10/11/24 10/12/24 10/12/24 18:59 06:59 18:59 Intake Total 1129 1146 510 Output Total 535 645 55 Balance 594 501 455 Weight 90.7 kg Intake: IV 1104 1146 510 Fat Emulsion 20% 250 ml 84 126 In Empty Bag 1 bag @ 21 mls/hr IV Q72H [facility] Rx#: [id number] TPN 1020 1020 510 Oral 25 Output: Drainage 500 Medial Abdomen 500 Urine 35 45 55 Stool 600 Other: Voiding Method Indwelling Catheter Indwelling Catheter Indwelling Catheter ABP, PAP, CO, CI - Last Documented Arterial Blood Pressure - Exam GENERAL DESCRIPTION: Middle-age male intubated on the vent RESPIRATORY SYSTEM: Unlabored breathing , decreased breath sounds at bases HEART: S1 S2 regular rate and rhythm , ABDOMEN: Soft , no tenderness EXTREMITIES: Swelling to the leg - Labs CBC & Chem 7: 10/13/24 06:07 10/13/24 06:07 Labs: Abnormal Lab Results - Last 24 Hours (Table) 10/11/24 10/11/24 10/12/24 Range/Units 17:40 23:47 05:27 RBC (4.40-5.60) 10*6/uL Hgb (13.0-17.0) g/dL Hct (39.6-50.0) % Immature Gran # (0.00-0.04) 10*3/uL Sodium (137-145) mmol/L BUN (9-20) mg/dL Creatinine (0.66-1.25) mg/dL Glucose (74-99) mg/dL POC Glucose (mg/dL) 196 H 156 H 165 H (70-110) mg/dL Phosphorus (2.5-4.5) mg/dL 10/12/24 10/12/24 10/12/24 Range/Units 06:20 08:39 12:45 RBC 2.89 L (4.40-5.60) 10*6/uL Hgb 8.1 L (13.0-17.0) g/dL Hct 25.1 L (39.6-50.0) % Immature Gran # 0.07 H (0.00-0.04) 10*3/uL Sodium 136 L (137-145) mmol/L BUN 108 H* (9-20) mg/dL Creatinine 2.81 H (0.66-1.25) mg/dL Glucose 155 H (74-99) mg/dL POC Glucose (mg/dL) 149 H (70-110) mg/dL Phosphorus 5.2 H (2.5-4.5) mg/dL Assessment and Plan (1) Pneumonia Current Visit: Yes Status: Acute Code(s): J18.9 - PNEUMONIA, UNSPECIFIED ORGANISM SNOMED Code(s): 970567169 (2) Sepsis Current Visit: Yes Status: Acute Code(s): A41.9 - SEPSIS, UNSPECIFIED ORGANISM SNOMED Code(s): 81473418 (3) Candidemia Current Visit: Yes Status: Acute Code(s): B37.7 - CANDIDAL SEPSIS SNOMED Code(s): 334257882 Plan: 1patient is a hospital with sepsis in this patient who did have fever tachycardia elevated lactic acid upon meeting criteria for SIRS/sepsis source likely pneumonia,patient is status post bronchoscopy lavage results currently growing Pseudomonas that is resistant to Avycaz and corynebacterium, which was vancomycin and Zyvox sensitive, patient completed antibiotic therapy for his pneumonia 2patient did have candidemia source is likely left chest wall PICC line which has been discontinued has been sent for the culture central line placed by inker and opaquer, blood culture repeat on 09/18/2024 positive blood culture repeat 09/22/2024 so far negative. Subsequently patient did continue PICC line and the chest wall catheter was discontinued as repeat blood culture from 09/22/2024 remained to be negative 3patient has completed his course of Eraxis which was discontinued after 10/06/2024 dose, he also have a blood culture done on 10/05/2024 that remains to be negative, 4patient remains to be afebrile white count has been normal seem to be doing well off antibiotic/antifungal Dictation was produced using [employer] dictation software. please excuse any grammatical, word or spelling errors. Time with Patient: Less than 30
[2024-10-13] MEDS: HYDROcodone/APAP 10-325MG 1 EACH TAB PO PRN (16:46)
[2024-10-13 17:51] LABS: Glucose,Whole Blood 116 mg/dL (70-110)
[2024-10-13] MEDS: [UNRECOGNIZED DRUG - OTHER] IV SCH (17:55)
[2024-10-13] MEDS: SODIUM CHLORIDE IV SCH (17:55)
[2024-10-13] MEDS: SODIUM ACETATE IV SCH (17:55)
--- NOTE | 2024-10-13 18:39 | P.PN ---
Subjective Patient is seen for follow-up for acute kidney injury. Patient remains on the vent. He is awake. Started hemodialysis on 09/22/2024 for volume overload and worsening acute kidney injury Patient remains oliguric. Urine output 0 to 5 mL/h FiO2 at 30% No significant issues today. Objective - Vital Signs Vital signs: Vital Signs Temp 98.2 F 10/13/24 16:00 Pulse 96 10/13/24 18:00 Resp 26 H 10/13/24 18:00 BP 145/61 10/13/24 18:00 Pulse Ox 100 10/13/24 18:00 FiO2 30 10/13/24 18:00 Intake & Output 10/12/24 10/13/24 10/13/24 18:59 06:59 18:59 Intake Total 1420 1080 1220 Output Total 8470 1830 530 Balance -7050 -750 690 Weight 87.6 kg 87.6 kg Intake: IV 1020 1020 200 Potassium Chloride 20 meq 200 In Water For Injection 1 100ml.bag @ 50 mls/hr IVPB Q2H [facility] Rx#: [id number] TPN 1020 1020 Oral 60 TPN/PPN 1020 Mvi, Adult No.4 with Vit 935 K 10 ml Trace (Conc-1Ml/ Dose) 1 ml Sodium Acetate 50 meq Sodium Chloride 4Meq/ml Vial 120 meq Potassium Chloride 10 meq Calcium Gluconate 0.5 gm Magnesium Sulfate gm 0.5 gm In Amino Acids 5 %/ Dextrose 20 % 1,000 ml @ 85 mls/hr IV .BY DURATION [facility] Rx#:[id number] Mvi, Adult No.4 with Vit 85 K 10 ml Trace (Conc-1Ml/ Dose) 1 ml Sodium Acetate 64 meq Sodium Chloride 4Meq/ml Vial 120 meq Potassium Chloride 10 meq Calcium Gluconate 0.5 gm Magnesium Sulfate gm 0.5 gm In Amino Acids 5 %/ Dextrose 20 % 1,000 ml @ 85 mls/hr IV .BY DURATION [facility] Rx#:[id number] Hemodialysis 400 Output: Urine 70 30 80 Stool 800 1800 450 Hemodialysis 4000 Hemodialysis Net Amount 3600 Other: Voiding Method Indwelling Catheter Indwelling Catheter ABP, PAP, CO, CI - Last Documented Arterial Blood Pressure - Exam Patient is on the vent he is awake. Examination of the heart S1 and S2 Examination of the lungs bilateral breath sounds are heard Abdomen is soft Examination of lower extremities shows right BKA and 1+ edema in the left leg - Labs CBC & Chem 7: 10/13/24 06:07 10/13/24 06:07 Labs: Abnormal Lab Results - Last 24 Hours (Table) 10/12/24 10/13/24 10/13/24 Range/Units 23:40 05:55 06:07 RBC (4.40-5.60) 10*6/uL Hgb (13.0-17.0) g/dL Hct (39.6-50.0) % MCHC (32.0-37.0) g/dL Sodium 135 L (137-145) mmol/L BUN 63 H (9-20) mg/dL Creatinine 1.94 H (0.66-1.25) mg/dL Glucose 137 H (74-99) mg/dL POC Glucose (mg/dL) 130 H 131 H (70-110) mg/dL Triglycerides 210.00 H (0.00-149.00) mg/dL 10/13/24 10/13/24 10/13/24 Range/Units 06:07 12:15 17:50 RBC 2.98 L (4.40-5.60) 10*6/uL Hgb 8.1 L (13.0-17.0) g/dL Hct 26.9 L (39.6-50.0) % MCHC 30.1 L (32.0-37.0) g/dL Sodium (137-145) mmol/L BUN (9-20) mg/dL Creatinine (0.66-1.25) mg/dL Glucose (74-99) mg/dL POC Glucose (mg/dL) 153 H 116 H (70-110) mg/dL Triglycerides (0.00-149.00) mg/dL Assessment and Plan Assessment: 1. Acute kidney injury secondary to ATN secondary to septic shock and vancomycin toxicity. Vancomycin level 49.3 on 09/19/2024. Patient remains oliguric. Started hemodialysis on 09/22/2024. 2. Septic shock secondary to pneumonia and fungemia. Stable now 3. Acute blood loss anemia status post packed RBCs transfusion. Hemoglobin stable. Maintained on Aranesp 4. Volume overload. 5. Chronic hypoxic and hypercapnic respiratory failure, home ventilator de pendent. 6. History of cardiac arrest. 8. Status post right BKA. 9. Hyperkalemia associated with severe hyperglycemia. TPN adjusted, improved Plan: Maintain hemodialysis on Saturday schedule. Use heparin with dialysis. Use heparin with dialysis. Maintained on TPN Continue to monitor electrolytes.
--- NOTE | 2024-10-13 23:44 | P.PN ---
Subjective Progress Note Date: 10/13/24 Chief Complaint: Short of breath 49-year-old patient, follows with Dr. Murcia History of paraplegia, home vent at night, tracheostomy multiple admissions to the ICU for recurrent pneumonia. Patient's previous bronchial cultures been positive for Pseudomonas. He was discharged recently on IV cefepime. Also has a history of Crohn's disease with previous colectomy diverting ileostomy. History of DVT for which patient is on subcu Lovenox. Also had drug-resistant MRSA Pseudomonas. Patient currently does not have areas significant trach secretions. He has continues TPN. Has a right BKA. He does have slight movement in the right hand. Able to follow commands by nodding his head. Answering questions. He is scared by his elder son open. I was also the DPOA. August 30: Overnight patient started having more secretions through the tracheostomy. Vancomycin was added. Also blood pressure running low patient was put on Levophed drip. Otherwise sinus rhythm. Patient remains on the ventilator. Will also send off stool for C. difficile. Also patient IV cefepime. Getting TPN. August 31: ICU. Patient had positive fluid balance. Was given IV Lasix earlier. Remains on Levophed. Spiking fevers. Getting TPN. Stool negative for C. difficile. Patient is growing MDRO Pseudomonas aeruginosa. ID is ordered IV Zerbaxa. Which is currently not available. Patient's friend is visiting him in the ICU. Light trach secretion September 01: ICU. On the ventilator. FiO2 45%. PEEP of 5. Continues to have light trach secretions. Sputum cultures again growing Pseudomonas. Zerbaxa was obtained and resumed. Blood pressure running low. On Levophed. Patient's younger son at the bedside. Colostomy working fine. Has been spiking fevers. Cooling blanket. Ice packs. September 02: ICU. Ventilator FiO2 45%. PEEP of 5. Continues to have some trach secretions. IV Zerbaxa IV tobramycin. TPN lipids to continue. Also Levophed. Patient started cooling blankets since yesterday for temperatures. Along with the nurse speech therapy records were reviewed from last few admissions. Patient with multiple MBS and bedside swallow eval. No trouble with swallowing. Patient put on a chopped diet. Thin liquids. Patient did spike a fever of 101.7 earlier today. Low ionized calcium. IV gluconate given. September 03: ICU. On ventilator FiO2 45%. PEEP of 5. Mild trach secretions. Getting IV TPN lipids. IV tobramycin. Zerbaxa was substituted to Avycaz. By ID. No fever per se since yesterday. For blood pressure patient is also on Levophed and vasopressin. September 04: ICU. On ventilator FiO2 45%. PEEP of 5. Clear trach secretions. Getting IV TPN lipids. IV tobramycin. And IV Avycaz. Remains afebrile.. On Levophed and vasopressin. Awake. 09/06/2024 Patient is seen and evaluated in ICU; remains on mechanical ventilator, actually his home ventilator, with settings of volume assist-control, rate 20, tidal volume 450, FiO2 45%, PEEP of 5. - patient has been refusing blood; no ABGs to. He is getting lactated Ringer's at 50 cc an hour, TPN at 65 cc an hour. - patient remains on the same antibiotics. - Labs reviewed which reveal white count 5.21, hemoglobin 7.9, hematocrit 27.5, and platelet count 64,000. Sodium 141, potassium 3.5, chlorides 102, CO2 32, BUN 25, and creatinine 0.35. Glucose is 152. Calcium is 8. Albumin is 2.1. -Chest x-ray is largely unchanged. Critical care managing mechanical ventilation; recommending to add scopolamine patch for increased secretion -Patient remains on Avycaz and tobramycin - Continue with current TPN 09/07 Patient remains in the ICU lethargic. He is s/p tracheostomy Overnight he was more hypoxic they have to increase PEEP to 8. Also has a lot of secretions when needed for secretions suctioning to try to become apneic per Staff. Patient currently receiving Avycaz and tobramycin. on TPN also 09/08 Patient remains in the ICU awake and alert status post tracheostomy. He has contractures of both upper and lower extremities He is complaining from pain in his lungs. He is status post flexible bronchoscopy and bronchoalveolar lavage yesterday. He has previous sputum culture positive for Pseudomonas currently covered with ceftazidime and tobramycin. He is also on Lovenox 90 mg 09/09 Patient still in the ICU on mechanical ventilation via tracheostomy. PEEP is 8.0 as is yesterday Also he spiked little fever to 100.7. IV vancomycin is added to tobramycin and ceftazidime He is getting also bronchoscopy follow-up culture results 09/10 Patient feels clinically the same, he still getting breathing via mechanical ventilation through his tracheostomy with PEEP of 8. Patient feels he is required suctioning through his tracheostomy tube. He denies chest pain or pain anywhere else he can communicate by head signs and gestures. Hemodynamically stable and afebrile hemoglobin 7.4 platelet count 73 Glucose is controlled potassium 3.3 He remains on broad-spectrum antibiotic Rocephin at this time tobramycin and IV vancomycin added yesterday because he had low-grade fever. He is getting TPN. IV fluid Ringer lactate was stopped and patient was started on IV Lasix 20 mg 3 times a day continue with therapeutic dose of Lovenox as well 09/11 Patient remains in the ICU Remains on mechanical ventilation via tracheostomy He status post bronchoalveolar lavage 2 days ago, culture is growing Pseudomonas aeruginosa and corynebacterium Patient remains on broad-spectrum antibiotics with IV vancomycin, tobramycin, ceftazidime On IV Lasix also is on therapeutic dose of Lovenox 90 mg twice daily No IV fluids 09/12 Patient remains in the ICU Clinically close to what he was over the last 2 days still getting oxygen via his tracheostomy He remains on broad-spectrum antibiotic with Ceftin this time and IV vancomycin. Also he is on IV Lasix 20 mg and therapeutic dose of Lovenox. 09/13 Patient remains in the ICU on mechanical ventilation via tracheostomy Patient looks better today, he breathing better Less secretion Fentanyl patch increased 09/14. Patient seen and examined. Patient continues to be on mechanical ventilation via trach mask. Currently on TPN. Currently on IV Zerbaxa and vancomycin 09/15. Patient seen and examined.Vital signs done showed the patient overnight, heart rate 106, blood pressure 107/40, currently on ventilation. Labs reviewed showed WBC 7.27, hemoglobin 7.5, sodium 148 on potassium 4.3, BUN 23, creatinine 0.47 09/16. Patient seen and examined labs reviewed showing WBC 5.45, hemoglobin 9.6, platelet count 131, sodium 146, potassium 4.1, BUN 20, creatinine 0.47. Continue small amount of Levophed. Currently on Zerbaxa and vancomycin. Currently on TPN September 17: ICU. Patient has taken a turn for the worse today. Significant thick white secretions from the trach. Sinus rhythm. Receiving TPN. Patient is on Levophed and vasopressor. Rather high dose. FiO2 [address] of 10. [address] Ho earlier spoke to the patient/family. Remains full code September 18: ICU. Intubated FiO2 70 PEEP of 12. Sinus rhythm. Drips include IV propofol at 50 and Levophed at 0.13. Patient is off vasopressin. Patient secretions. Family at the bedside. September 19: ICU. Intubated. FiO2 50 and a PEEP of 12. Drips include IV Levophed and propofol. Also started on Lasix drip 10 mg an hour yesterday. Secretions present. September 20: ICU. Intubated. FiO2 50 and a PEEP of 12. Hemoglobin 6.3. Secondary to blood being given. Patient been on and off Levophed. On propofol. Lipids have been held. Continues with TPN. Lasix drip was discontinued. Lovenox has been held because of low hemoglobin. Unable anemia is felt to be combination of regular blood draws and possible element element of hemolysis from all the infection. No dark stool. Family at the bedside September 21: ICU. Intubated. Received 2 units of blood yesterday. Hemoglobin 7.6 today. Per nephrology renal replacement therapy. Dialysis access placed by Dr. Cadena. Patient earlier today on Levophed. Propofol. Getting TPN. Sinus rhythm. Urine output decreased September 22: ICU. Intubated. FiO2 15 of PEEP of 12. Seen earlier today. Dialysis being started. Been on IV Levophed propofol. Sinus rhythm. TPN. Sinus rhythm. September 23: ICU. Intubated. Due for another dialysis today. Saw the patient earlier today. Remains on IV Levophed propofol. Sinus rhythm. TPN. On fentanyl patch. September 24: ICU. Intubated. FiO2 40 and PEEP of 12. Remains on IV Levophed and propofol. IV TPN. Decrease trach secretions. IV antibiotics. Was due for dialysis earlier today. September 25: ICU. Intubated. FiO2 30%. Patient getting IV Levophed and propofol. IV TPN. Dialysis today. Receiving IV antibiotics. Does opens eyes occasionally. Some commands per nursing. September 26: ICU. Intubated. FiO2 30 and a PEEP of 8. Had 2 L hemodialysis removed yesterday. Getting hemodialysis today. Aiming for 2 to 3 L. Patient is on propofol. Currently Levophed on hold. Getting TPN. Patient is actually awake and following commands. Sinus rhythm. September 27: ICU. Intubated. FiO2 39 PEEP of 8. No dialysis today. Remains on IV Levophed propofol. TPN. There is a bedside. Patient asked me how is he doing. Had a lengthy information in terms of his guarded prognosis. Did tell him it is his choice about how he wishes to proceed. He needs to decide between treatment benefits versus in the suffering because of that entails from treatment and his recurrent infections etc. Especially in the context of decreased activity. Kidney failure, respiratory failure etc. September 28: ICU. Intubated. FiO2 30 and a PEEP of 8. For dialysis today. Off Levophed this morning. IV propofol. TPN. Some clear light to trach secret ions. Colostomy working. Poor urine output. September 29: ICU. Intubated. IV propofol Levophed. TPN. Awake. Discussed with Dr. Holt. Prognosis very poor. Probably treatment is the point of getting futile. Patient needs about 34 more days to go to long-term ventilator setting. September 30: ICU. Intubated. IV propofol. Currently off Levophed. TPN. Getting dialysis today. Awake. IV antifungal. Given a unit of blood for hemoglobin of 6.9 October 01: ICU. Intubated. IV propofol. Remains on Levophed. TPN dose adjusted. Dialysis. IV aniedulefungin. Eyes open. Vent. FiO2 30%. PEEP 5 September 18: ICU. Intubated. IV propofol. Off Levophed. TPN. Dialysis today. IV aniedulefungin last day on October 06. Per ID. Some trach secretions clear October 03: ICU. Intubated. IV propofol. TPN. Dialysis schedule will now be Saturday. Next dialysis will be on coming Saturday. IV aniedulefungin last day-I October 06. Minimal urine output-5 to 10 cc an hour. Awake. October 04: ICU. Intubated. IV propofol. TPN. Next dialysis on Saturday. IV elevated Lida function. Urine output remains to be minimal. Awake. Mother at the bedside. Does not have any questions. Sinus rhythm. 10/05/2024 Patient seen in follow-up today remains in the ICU on mechanical ventilation FiO2 is 30%. Patient is requiring some small dose Levophed as blood pressures were low maintained on hemodialysis. Multiple consultations following including infectious disease the patient is maintained on Eraxis which will be completed after October 06, 2024. Patient is continued on TPN and will continue. Prognosis remains poor and guarded at this time. 10/06/2024 Patient seen and evaluated in follow-up today with no significant changes other than blood sugars are becoming more elevated likely secondary to Cortef be resumed. Will add long-acting insulin and continue with sliding scale. Would recommend ACHS as well as at 2 AM as needed. Patient is afebrile continued on mechanical ventilation and will be completing Eraxis today. 10/07/2024 Patient seen in follow-up today continues on mechanical ventilation with an FiO2 of 30%, currently awake following commands and is maintained on low-dose propofol. Blood sugars extremely elevated above 500 and had started long-acting although no improvement, likely secondary to Solu-Cortef and is placed on insulin drip. Will adjust accordingly and titrate and attempt to wean as tolerated. Patient has completed Eraxis with infectious disease following closely. Hemoglobin was also noted to be low at 6.9 today and being transfused 1 unit and will follow-up on repeat labs this afternoon. Patient is scheduled to receive hemodialysis today. Patient is requesting if he can eat although is maintained on TPN and now with blood sugars of 500, no plans for resuming a diet as of today. 10/08/2024 Patient is seen in follow-up today is being closely monitored off antibiotic therapy and has completed Eraxis with infectious disease following closely. Patient is maintained on TPN along with Solu-Cortef and blood sugars were elevated requiring insulin drip as blood sugars were also noted to be over 500 yesterday. Blood sugars improved being started on long-acting along with sliding scale and insulin drip discontinued. Cortef also being adjusted per pulmonary driver/sales workers. Patient continues on mechanical ventilation is awake and alert. FiO2 is 30%. Hemoglobin is improved status post 1 unit PRBC and is 8.2 today. Sodium improved at 133 with a potassium of 4.3, BUN is 51 and creatinine is 1.48. Case management/social work is following and awaiting until new insurance becomes effective next month and looking into possible ECF versus LT AC. Patient does have significant complex comorbidities and extremely guarded prognosis, would benefit from LTAC. Patient is afebrile and most recent blood cultures remain negative. 10/09/2024 Patient is seen in follow-up this morning continues to be in the ICU. Patient being evaluated by speech as patient would like to eat and will await official report. Patient's blood sugars have improved and transitioned off insulin drip maintained on long-acting along with sliding scale and will continue. Case management/social work is following looking into possible ECF that can accommodate hemodialysis as well as his significant comorbidities and ventilation via tracheostomy. Patient would benefit from LTAC although is having insurance issues. New insurance will become effective in October to be able to receive more LTAC days. Patient with significant multiple comorbidities requiring higher level of care. Patient is afebrile and CBC is within normal limits with no active bleeding noted. Will continue to monitor closely and recommend follow-up labs. 10/12/2024 Patient is seen in follow-up today with multiple consultations following. Patient is currently receiving hemodialysis and hemoglobin is stable with no active bleeding noted. Patient is being closely monitored off antibiotic therapy with infectious disease following. Patient has completed Eraxis. Patient to continue on TPN and will follow-up on repeat labs. Cortef is being titrated and dose is being decreased. Continue monitoring Accu-Cheks and tight glycemic control. Patient is maintained on mechanical ventilation via tracheostomy with FiO2 of 30%. Awaiting for new insurance to become effective October 16 and then will be determined an ECF versus LTAC 10/13/2024 Patient is seen in follow-up today with no acute overnight issues noted. Hemoglobin is stable above 8.1 with no active bleeding noted. Blood sugar slightly elevated and Cortef is being weaned down. Patient is currently receiving hemodialysis. Apparently per nursing, new insurance becomes effective October 16, 2024 with case management following looking into possible LTAC versus ECF that can accommodate tracheostomy with chronic vent, TPN. Patient is afebrile and was recently reevaluated by speech maintained on diet with aspiration precautions ordered. Review of systems: Constitutional: No reports of fatigue, fever, or chills Cardiovascular: No reports of chest pain or palpitations Respiratory: No reports of shortness of breath or cough GI: No reports of nausea, vomiting, or diarrhea, reports eating very little : No reports of dysuria or retention Neurovascular: reports of weakness, and is bedbound All medications have been reviewed Active Medications Hydrocodone Bitart/Acetaminophen (Hydrocodone/Apap 10-325mg 1 Each Tab) 1 each PO Q4HR PRN PRN Reason: Pain 1-6 Last Admin: 10/13/24 16:46 Dose: 1 each Albuterol/Ipratropium (Ipratropium-Albuterol 3 Ml Neb) 3 ml INHALATION RT-Q4H PRN PRN Reason: shortness of breath Last Admin: 10/10/24 15:33 Dose: 3 ml Albuterol/Ipratropium (Ipratropium-Albuterol 3 Ml Neb) 3 ml INHALATION RT-QID ANNIE Last Admin: 10/13/24 20:43 Dose: 3 ml Artificial Tears (Artificial Tears-Hypromellose Drops 15 Ml Btl) 1 drops BOTH EYES QID PRN PRN Reason: Dry Eye(s) Last Admin: 09/04/24 12:52 Dose: 1 drops Chlorhexidine Gluconate (Chlorhexidine Gluconate 15 Ml Cup) 15 ml MUCOUS MEM BID ANNIE Last Admin: 10/13/24 20:14 Dose: 15 ml Darbepoetin Andry (Darbepoetin Andry 40 Mcg/0.4 Ml Syringe) 40 mcg SQ Q7D ANNIE Last Admin: 10/08/24 11:38 Dose: 40 mcg Dextrose/Water (Dextrose 50% Syringe 50 Ml) 25 ml IVP PER PROTOCOL PRN; Protocol PRN Reason: Hypoglycemia Dextrose/Water (Dextrose 50% Syringe 50 Ml) 50 ml IVP PER PROTOCOL PRN; Protocol PRN Reason: Hypoglycemia Fentanyl (Fentanyl 100mcg/Hr Patch) 1 patch TRANSDERM Q72H ANNIE; Protocol Last Admin: 10/13/24 09:05 Dose: 1 patch Heparin Sodium (Porcine) (Heparin Sodium,Porcine 5,000 Unit/Ml 1 Ml Vial) 5,000 unit SQ Q8HR ANNIE Last Admin: 10/13/24 16:45 Dose: 5,000 unit Hydrocortisone (Hydrocortisone 10 Mg Tab) 10 mg PO DAILY ANNIE Last Admin: 10/13/24 10:08 Dose: 10 mg Hydrocortisone (Hydrocortisone 10 Mg Tab) 5 mg PO HS [facility] Last Admin: 10/13/24 20:15 Dose: 5 mg Hydromorphone HCl (Hydromorphone 1 Mg/Ml 1 Ml Syringe) 1 mg IVP Q3HR PRN PRN Reason: Pain 7-10 Last Admin: 10/13/24 22:47 Dose: 1 mg Fat Emulsion Intravenous 250 (ml/ IV Solution) 250 mls @ 21 mls/hr IV Q72H [facility] Last Admin: 10/11/24 14:12 Dose: 21 mls/hr Sodium Acetate 64 meq/ Sodium Chloride 120 meq/ Potassium Chloride 10 meq/ Calcium Gluconate 0.5 gm/ Magnesium Sulfate 0.5 gm/ Amino Acids/Dextrose 1,073 mls @ 85 mls/hr IV .BY DURATION [facility] Parenteral Vitamin Supplement 10 ml/ Zinc/Copper/Manganese/Selenium 1 ml/ Sodium Acetate 64 meq/ Sodium Chloride 120 meq/ Potassium Chloride 10 meq / Calcium Gluconate 0.5 gm/Magnesium Sulfate 0.5 gm/Amino Acids/Dextrose 1,084 mls @ 85 mls/hr IV .BY DURATION [facility] Last Admin: 10/13/24 17:55 Dose: 85 mls/hr Insulin Glargine (Insulin Glargine (Lantus) 100 Unit/Ml Syr) 20 unit SQ DAILY@0700 [facility] Last Admin: 10/13/24 06:25 Dose: 20 unit Insulin Human Lispro (Insulin Lispro (Humalog) 100 Unit/Ml 10 Ml Vl) 0 unit SQ Q6H [facility]; Protocol Last Admin: 10/13/24 17:51 Dose: Not Given Lorazepam (Lorazepam 1 Mg/0.5 Ml Vial) 1 mg IV Q6HR PRN PRN Reason: Anxiety Last Admin: 10/13/24 20:14 Dose: 1 mg Miscellaneous Information (Potassium Replacement Protocol 1 Each Misc) 1 each MISCELLANE DAILY PRN; Protocol PRN Reason: Per Protocol Miscellaneous Information (Magnesium Replacement Protocol 1 Each Misc) 1 each MISCELLANE DAILY PRN; Protocol PRN Reason: Per Protocol Naloxone HCl (Naloxone 0.4 Mg/Ml 1 Ml Vial) 0.2 mg IV Q2M PRN PRN Reason: Opioid Reversal Ondansetron HCl (Ondansetron 4 Mg/2 Ml Vial) 4 mg IVP Q6HR PRN PRN Reason: Nausea And Vomiting Last Admin: 09/01/24 19:41 Dose: 4 mg Pantoprazole Sodium (Pantoprazole 40 Mg/10 Ml Vial) 40 mg IV DAILY [facility] Last Admin: 10/13/24 09:07 Dose: 40 mg Petrolatum (Zinc Oxide Paste (Z-Guard) 1 Applic) 1 applic TOPICAL BID PRN; Protocol PRN Reason: Wound Healing Physical examination: GENERAL:, 49-year-old male who is asleep although arousable, awake, alert and oriented x 3, following commands continued on mechanical ventilation via tracheostomy with an FiO2 of 30% EYES: Pupils equal. Conjunctiva normal HEENT: External appearance of nose and ears normal, oral cavity dry NECK: JVD unable to assess; masses not palpable. Tracheostomy HEART: First and second heart sounds are normal; no edema. LUNGS: decreased breath sounds bilaterally, some crackles ABDOMEN: Soft, nontender, liver spleen not palpable, no masses palpable. Double barrel ostomy. PSYCH: Following simple commands MUSCULOSKELETAL: Right BKA. Left foot drop. Left hand contracture. Right hand also with contracture but able to have some movements NEUROLOGICAL: Cranial nerves grossly intact; no facial asymmetry, slight movement in the right arm. Assessment plan: - Basilar pneumonia. Previous admission sputum was positive for Pseudomonas aeruginosa - Candidemia secondary to left chest wall PICC line that has been discontinued. And repeat blood cultures on September 22 negative. - Fluid overload - Acute kidney injury from ATN from septic shock. And possibly vancomycin toxicity. Oliguric. Volume overload. First dialysis was on September 22.-Has been getting dialysis nearly daily. From now on dialysis schedule be Saturday - Metabolic alkalosis, improved - Septic shock: Requiring pressor support, improved and off pressors - Acute on chronic hypoxic and hypercapnic respiratory failure, vent dependent at night at home, FiO2 30% - Tracheostomy with trach collar -Acute normocytic anemia of chronic disease and hospital-acquired anemia from blood draws and possible hemolysis from infection - Thrombocytopenia likely from sepsis: Corrected - Right below-knee amputation history - Chronic quadriparesis. Including left foot drop. Left arm contracture. Some right hand contracture. Some movement in the right arm - Crohn's disease with double barrel ostomy bag in place since 09/2021 - TPN and lipids Lipids have been held during propofol - Hyperglycemia, likely secondary to Solu-Cortef as well as TPN, started on insulin drip 10/07/2024, improved although continues to be elevated and uncontrolled, off insulin drip - Full code - DPOA, son BECKY Plan: Patient remains in the ICU on mechanical ventilation with an FiO2 of 30% via tracheostomy Continued per propofol along with Dilaudid Patient has completed Eraxis 10/06/2024 per ID recommendations being closely monitored off antibiotic therapy Continue current supportive care Nephrology following and patient is maintained on hemodialysis currently receiving today Blood sugars have been elevated and uncontrolled likely secondary to Solu-Cortef being resumed, patient was on insulin drip and has transitioned to long-acting along with sliding scale, Solu-Cortef reduced as well Recommend follow-up labs in the a.m. including CBC and CMP. Replace electrolytes per protocol. Transfuse if 7 or less on hemoglobin. No active bleeding noted Case management/social work following and awaiting new insurance to become effective October 16, discharge planning which will require LTAC versus ECF Overall prognosis is extremely poor and per family and patient, CODE STATUS remains full code The impression and plan of care has been dictated by Alyssa Hernandez, Nurse Practitioner as directed. Dr. Gerry MD I have performed a history and examination and MDM of this patient, discussed the same with the dictator, and agree with the dictator's assessment and plan as written ,documented as a scribe. Based on total visit time, I have performed more than 50% of the visit. Objective - Vital Signs Vital signs: Vital Signs Temp 98.3 F 10/13/24 20:00 Pulse 92 10/13/24 21:00 Resp 24 10/13/24 21:00 BP 128/65 10/13/24 21:00 Pulse Ox 95 10/13/24 21:00 FiO2 30 10/13/24 20:39 Intake & Output 10/13/24 10/13/24 10/14/24 06:59 18:59 06:59 Intake Total 1080 1305 170 Output Total 1830 830 20 Balance -750 475 150 Weight 87.6 kg 87.6 kg Intake: IV 1020 200 Potassium Chloride 20 meq 200 In Water For Injection 1 100ml.bag @ 50 mls/hr IVPB Q2H [facility] Rx#: [id number] TPN 1020 Oral 60 TPN/PPN 1105 170 Mvi, Adult No.4 with Vit 935 K 10 ml Trace (Conc-1Ml/ Dose) 1 ml Sodium Acetate 50 meq Sodium Chloride 4Meq/ml Vial 120 meq Potassium Chloride 10 meq Calcium Gluconate 0.5 gm Magnesium Sulfate gm 0.5 gm In Amino Acids 5 %/ Dextrose 20 % 1,000 ml @ 85 mls/hr IV .BY DURATION [facility] Rx#:[id number] Mvi, Adult No.4 with Vit 170 170 K 10 ml Trace (Conc-1Ml/ Dose) 1 ml Sodium Acetate 64 meq Sodium Chloride 4Meq/ml Vial 120 meq Potassium Chloride 10 meq Calcium Gluconate 0.5 gm Magnesium Sulfate gm 0.5 gm In Amino Acids 5 %/ Dextrose 20 % 1,000 ml @ 85 mls/hr IV .BY DURATION [facility] Rx#:[id number] Output: Urine 30 80 20 Stool 1800 750 Other: Voiding Method Indwelling Catheter Indwelling Catheter Indwelling Catheter ABP, PAP, CO, CI - Last Documented Arterial Blood Pressure - Labs CBC & Chem 7: 10/13/24 06:07 10/13/24 06:07 Labs: Abnormal Lab Results - Last 24 Hours (Table) 10/12/24 10/13/24 10/13/24 Range/Units 23:40 05:55 06:07 RBC (4.40-5.60) 10*6/uL Hgb (13.0-17.0) g/dL Hct (39.6-50.0) % MCHC (32.0-37.0) g/dL Sodium 135 L (137-145) mmol/L BUN 63 H (9-20) mg/dL Creatinine 1.94 H (0.66-1.25) mg/dL Glucose 137 H (74-99) mg/dL POC Glucose (mg/dL) 130 H 131 H (70-110) mg/dL Triglycerides 210.00 H (0.00-149.00) mg/dL 10/13/24 10/13/24 10/13/24 Range/Units 06:07 12:15 17:50 RBC 2.98 L (4.40-5.60) 10*6/uL Hgb 8.1 L (13.0-17.0) g/dL Hct 26.9 L (39.6-50.0) % MCHC 30.1 L (32.0-37.0) g/dL Sodium (137-145) mmol/L BUN (9-20) mg/dL Creatinine (0.66-1.25) mg/dL Glucose (74-99) mg/dL POC Glucose (mg/dL) 153 H 116 H (70-110) mg/dL Triglycerides (0.00-149.00) mg/dL
[2024-10-14 01:22] LABS: Glucose,Whole Blood 141 mg/dL (70-110)
[2024-10-14 06:37] LABS: Basophils # (A) 0.01 10*3/uL (0.00-0.10); Basophils % (A) 0.3 %; Eosinophils # (A) 0.08 10*3/uL (0.04-0.35); Eosinophils % (A) 2.1 %; HCT 28.6 % (39.6-50.0); HGB 8.7 g/dL (13.0-17.0); Lymphocytes # (A) 0.94 10*3/uL (0.90-5.00); Lymphocytes % (A) 24.4 %; MCH 27.4 pg (27.0-32.0); MCHC 30.4 g/dL (32.0-37.0); MCV 90.2 fL (80.0-97.0); Monocytes # (A) 0.51 10*3/uL (0.20-1.00); Monocytes % (A) 13.2 %; Neutrophils # (A) 2.31 10*3/uL (1.80-7.70); Neutrophils % (A) 59.7 %; Platelet Count 226 10*3/uL (140-440); RBC 3.17 10*6/uL (4.40-5.60); RDW 17.7 % (11.5-14.5); WBC 3.86 10*3/uL (4.50-10.00)
[2024-10-14 06:58] LABS: African American GFR (CKD) 31 (>60 ml/min/1.73 sqM); Anion Gap 12 mmol/L; Blood Urea Nitrogen 86 mg/dL (9-20); Calcium 9.9 mg/dL (8.4-10.2); Carbon Dioxide 23 mmol/L (22-30); Chloride 102 mmol/L (98-107); Glucose 126 mg/dL (74-99); Magnesium 2.1 mg/dL (1.6-2.3); Non-African American GFR(CKD) 27 (>60 ml/min/1.73 sqM); Potassium 4.2 mmol/L (3.5-5.1); Sodium 137 mmol/L (137-145)
[2024-10-14] MEDS: HYDROCORTISONE 10 MG TAB PO SCH (07:24)
--- NOTE | 2024-10-14 08:37 | XR ---
EXAMINATION TYPE: XR chest 1V portable DATE OF EXAM: 10/14/2024 5:31 AM COMPARISON: 10/12/2024 CLINICAL INDICATION: Male, 49 years old with history of Mechanical ventilation, FINDINGS: Indwelling tubes and catheters are unchanged. No change in bibasilar opacities. Stable appearance of the cardio-mediastinal structures at this time. Pleural effusion unchanged. IMPRESSION: 1. Stable portable chest. Clinical correlation and follow up until resolution is recommended. [facility], , 10/14/2024 8:34 AM
--- NOTE | 2024-10-14 09:26 | P.PN ---
Subjective Patient is seen in follow-up for acute kidney injury, hemodialysis dependent. Started on hemodialysis September 22, 2024. Receiving TPN. Tolerating dialysis well. Vital signs are stable. General: Awake on vent. HEENT: Tracheostomy noted. LUNGS: Scattered rhonchi. HEART: Rate and Rhythm are regular. ABDOMEN: Ostomy noted. EXTREMITITES: Trace edema left lower extremity. Right BKA. Objective - Vital Signs Vital signs: Vital Signs Temp 98.2 F 10/14/24 04:00 Pulse 98 10/14/24 07:40 Resp 25 H 10/14/24 07:28 BP 138/59 10/14/24 07:00 Pulse Ox 98 10/14/24 07:00 FiO2 30 10/14/24 07:30 Intake & Output 10/13/24 10/14/24 10/14/24 18:59 06:59 18:59 Intake Total 1305 1020 Output Total 830 995 Balance 475 25 Weight 87.6 kg 87.5 kg Intake: IV 200 Potassium Chloride 20 meq 200 In Water For Injection 1 100ml.bag @ 50 mls/hr IVPB Q2H [facility] Rx#: [id number] TPN/PPN 1105 1020 Mvi, Adult No.4 with Vit 935 K 10 ml Trace (Conc-1Ml/ Dose) 1 ml Sodium Acetate 50 meq Sodium Chloride 4Meq/ml Vial 120 meq Potassium Chloride 10 meq Calcium Gluconate 0.5 gm Magnesium Sulfate gm 0.5 gm In Amino Acids 5 %/ Dextrose 20 % 1,000 ml @ 85 mls/hr IV .BY DURATION [facility] Rx#:[id number] Mvi, Adult No.4 with Vit 170 1020 K 10 ml Trace (Conc-1Ml/ Dose) 1 ml Sodium Acetate 64 meq Sodium Chloride 4Meq/ml Vial 120 meq Potassium Chloride 10 meq Calcium Gluconate 0.5 gm Magnesium Sulfate gm 0.5 gm In Amino Acids 5 %/ Dextrose 20 % 1,000 ml @ 85 mls/hr IV .BY DURATION [facility] Rx#:[id number] Output: Urine 80 95 Stool 750 900 Other: Voiding Method Indwelling Catheter Indwelling Catheter ABP, PAP, CO, CI - Last Documented Arterial Blood Pressure - Labs CBC & Chem 7: 10/14/24 05:35 10/14/24 05:35 Labs: Abnormal Lab Results - Last 24 Hours (Table) 10/13/24 10/13/24 10/13/24 Range/Units 06:07 12:15 17:50 WBC (4.50-10.00) 10*3/uL RBC (4.40-5.60) 10*6/uL Hgb (13.0-17.0) g/dL Hct (39.6-50.0) % MCHC (32.0-37.0) g/dL BUN (9-20) mg/dL Creatinine (0.66-1.25) mg/dL Glucose (74-99) mg/dL POC Glucose (mg/dL) 153 H 116 H (70-110) mg/dL Triglycerides 210.00 H (0.00-149.00) mg/dL 10/14/24 10/14/24 10/14/24 Range/Units 01:20 05:35 05:35 WBC 3.86 L (4.50-10.00) 10*3/uL RBC 3.17 L (4.40-5.60) 10*6/uL Hgb 8.7 L (13.0-17.0) g/dL Hct 28.6 L (39.6-50.0) % MCHC 30.4 L (32.0-37.0) g/dL BUN 86 H (9-20) mg/dL Creatinine 2.64 H (0.66-1.25) mg/dL Glucose 126 H (74-99) mg/dL POC Glucose (mg/dL) 141 H (70-110) mg/dL Triglycerides (0.00-149.00) mg/dL Assessment and Plan Plan: Assessment: 1. Acute kidney injury secondary to ATN secondary to septic shock and vancomycin toxicity. Oliguric. Started on hemodialysis October 02, 2024 via femoral catheter. Now has permacath. 2. Septic shock secondary to pneumonia and fungemia. Off vasopressors. 3. Acute blood loss anemia status post blood transfusions this admission. On Aranesp. 4. Volume overload. Better with UF. 5. Chronic hypoxic and hypercapnic respiratory failure, home ventilator dependent. 6. History of cardiac arrest. 8. Status post right BKA. Plan: Currently seen while undergoing hemodialysis. Next treatment Saturday. Receiving TPN. Awaits discharge pending insurance approval.
--- NOTE | 2024-10-14 11:09 | P.PN ---
Subjective Progress Note Date: 10/14/24 Principal diagnosis: Pneumonia. This is a 49-year-old white male familiar to my service, history of paraplegia, home vent dependent, history of tracheostomy, patient had multiple admissions to the ICU for recurrent episodes of pneumonia and respiratory failure requiring ventilatory support. On his last admission patient was eventually discharged home on a home ventilator, and this was back on 08/04/2024. Patient was discharged home with a PICC line, patient was in the ER yesterday on 08/28 for abnormal labs mostly low potassium and low sodium discharged home however he cam e back today complaining of shortness of breath, has been ventilator dependent all along. Chest x-ray showed basically bibasilar opacities/atelectasis, doubt pneumonia, the findings in the left lower lobe are chronic. Patient did have previous history of pneumonia involving the left lower lobe and he had multiple bronchoscopies in the past. Bronchial cultures and sputum cultures have been positive in the past for mostly Pseudomonas aeruginosa. Patient was seen in the ER today, and he is already on cefepime for empiric coverage for potential left lower lobe pneumonia, patient had abnormal electrolytes with relatively low sodium low potassium, no leukocytosis, normal renal profile, blood pressure was soft, and he was given fluid boluses. Lactic acid was 2.1, D-dimer is normal, patient was admitted, and this consult was initiated. 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 Patient was seen today on 08/30/2024, patient continues to have intermittent episodes of fever with Tmax of 102, patient required norepinephrine and he remains on norepinephrine at 0.04 mcg/kg/min remains on LR at 130 cc/h remains on his home ventilator at tidal volume of 450 rate of 20 FiO2 45% and PEEP of 5. Seems comfortable, not in distress, his WBC is 3.5 hemoglobin 10.0 electrolytes are normal renal profile is normal potassium is borderline low. Patient remains on cefepime, vancomycin was added because of his previous history of MRSA, and is on cefepime for previous history of pseudomonal infection and now that the patient may be septic it is more of a reason to broaden the spectrum of antibiotics coverage with cefepime and vancomycin. Sputum cultures and blood cultures are pending. Patient does have history of pseudomonal and history of MRSA infections, and I discontinued his Zithromax today replace Zithromax with vancomycin. Viral screen is negative Legionella antigen is negative. Chest x- ray is relatively unchanged continues to show bibasilar opacities atelectasis/pneumonia. Progress note dated August 31, 2024. The patient is seen today in room 252. The patient was admitted a couple days ago, to the intensive care unit. The patient is currently on mechanical ventilator, actually his home ventilator. He is on volume assist-control, rate 20, tidal volume 450, FiO2 45% PEEP of 5. The patient is getting lactated Ringer's at 130 cc an hour, TPN at 91 cc an hour, norepinephrine at 8 mcg/min. Doppler of the left upper extremity was negative. He continues on Zerbaxa, and vancomycin. We will check a procalcitonin level. Cultures thus far are negative. He does have a previous history of methicillin-resistant Staph aureus infection, and pseudomonal infections. White count was 2.21, hemoglobin 9.3, hematocrit 32, platelet count 1 61,000. D-dimer was 5.78. Sodium 132, potassium 4.3, chlorides 106, CO2 21, BUN 18, creatinine 0.28. Glucose was 141. Calcium 7.8. C. difficile study was negative. Urine Legionella antigen was negative. Microbiologic studies are currently negative. Chest x-ray shows bibasilar airspace opacities, possibly consistent with pneumonia. 09/01/24 - The patient is seen today in room 252. Admitted to the hospital and the intensive care unit on 08/29/2024. The patient is currently on mechanical ventilator, his one from home. He is on volume assist control, rate of 20, tidal volume of 450, FiO2 45% and PEEP of 5. He currently has LR running at 50 cc/h, TPN at 91 cc/h, Zerbaxa and tobramycin. Chest Xray done this morning showed stable airspace opacities. Cultures are positive for pseudomonas aeruginosa, awaiting sensitivities. WBCs 2.69, Hgb 8.9, Hct 31.5, PLT 153, Na 135, K 3.4, Cl 109, HCO3 19, BUN 22, Cr 0.34, Phos 2.4. 09/02/24 - He is seen today in room 252. Admitted to the hospital and ICU on 08/29/24. He continues on mechanical ventilator, his one from home. He remaines on volume assist control, rate of 20, tidal volume of 450, FiO2 45% and PEEP of 5. He continues to have LR running at 50 cc/h, TPN at 91 cc/h, norepinephrine at 0.13 mcg/kg/min, Zebraxa and Tobramycin. Chest XRay this morning showed stable airspace opacities. Continue to await sensitivity of pseudomonas sputum culture. Lab work shows WBCs 3.64, Hgb 9.7, Hct 33.5, PLT 130, Na 133, K 3.9, bicarb 21, BUN 23, Cr 0.36, Ca 7.8, Mg 2.4, Albumin 2.3. 09/03/24 - He is seen in room 252. Admitted to the hospital and ICU on 08/29/24. He continues on mechanical ventilator, his one from home. He remaines on volume assist control, rate of 20, tidal volume of 450, FiO2 45% and PEEP of 5. He continues to have LR running at 50 cc/h, TPN at 91 cc/h, norepinephrine at 0.24 mcg/kg/min, Avycaz and Tobramycin. Zebraxa was discontinued as there was no reported sensitivity to it. Lab work shows WBCs 9.40, Hgb 8.8, Hct 30.6, PLT 100, Na 130, K 3.6, bicarb 23, BUN 25, Cr 0.51, Ca 7.8, Ionized Ca 4.6, Phos 3.3, Mg 2.1, TSH 2.710 and random cortisol 13.1. 09/04/24 - He is seen in room 252. Admitted to the hospital and ICU on 08/29/24. He continues on mechanical ventilator, his one from home. He remaines on volume assist control, rate of 20, tidal volume of 450, FiO2 45% and PEEP of 5. He continues to have LR running at 50 cc/h, TPN at 91 cc/h, norepinephrine at 0.24 mcg/kg/min, Avycaz and Tobramycin. Lab work shows sodium 133, potassium 3.5, bicarb 24, BUN 27, creatinine 0.47, calcium 7.9, ionized calcium 4.6, magnesium 1.9, phosphorus 3.0, total bilirubin 1.7, AST 57, ALT 45, alkaline phosphatase 99. Progress note dated September 05, 2024. 49-year-old male well-known to our service. He is seen today in room 252. He continues on volume assist-control, rate 20, tidal 450, FiO2 45%, PEEP of 5. The patient has refused blood gases. Currently, he is getting TPN at 65 cc an hour, norepinephrine at 1 mcg/min, LR at 50 cc/h. Clinically, the patient is doing well. His chest x-ray remains about the same. Yesterday he was on a higher dose of norepinephrine, and also was on vasopressin. Both have been weaned off. Current labs include a sodium 136, potassium 4.1, chlorides 101, CO2 28, BUN 30, creatinine 0.37. Glucose 153. Albumin is 2.2. Previous sputum, from August 29 with positive for Pseudomonas aeruginosa. Chest x-ray is largely unchanged. Progress note dated September 06, 2024. 49-year-old male again seen today in the intensive care unit, room 252. He remains on mechanical ventilator, actually his home ventilator, with settings of volume assist-control, rate 20, tidal volume 450, FiO2 45%, PEEP of 5. No blood gases today. The patient has been refusing. He is getting lactated Ringer's at 50 cc an hour, TPN at 65 cc an hour. He continues on the same antibiotics. White count 5.21, hemoglobin 7.9, hematocrit 27.5, and platelet count 64,000. Sodium 141, potassium 3.5, chlorides 102, CO2 32, BUN 25, and creatinine 0.35. Glucose is 152. Calcium is 8. Albumin is 2.1. Chest x-ray is largely unchanged. Patient was seen today on 09/16/2024, patient is basically about the same. Hardly any improvement noted in the last few weeks since admission, patient remains intubated, mechanically ventilated, same ventilator settings, assist-control rate of 20 tidal volume 450 FiO2 60% and PEEP of 8 ABG was not done today, no easy access, attempted to place arterial lines in this patient, but could not pass a wire although the arteries including femoral artery and left brachial artery were easily cannulated. No further attempts made for arterial access. Patient remains on norepinephrine at 0.13 mcg/kg/min still on TPN at 75 cc/h still on Zerbaxa and vancomycin chest x-ray showed worsening today of bilateral infiltrates possibly some component of fluid overload and I recommended Lasix 20 mg IV push twice daily. Patient seems to be quite swollen and edematous. WBC count is 5.4 hemoglobin 7.6 electrolytes showed sodium of 146 potassium 4.1 BUN 20 creatinine 0.47 Patient was seen today on 09/17/2024, patient seems to be deteriorating steadily over the last 24 hours, he is developing profound hypotension requiring pressors in the form of Levophed at 0.4 mcg/kg/min he is also on vasopressin at 0.04 units/min he is on TPN at 75 cc/h hemoglobin is noted to be low at 6.9, patient has positive yeast in the blood/fungemia he is on fluconazole, this is being addressed by infectious disease on the case. Earlier ABG showed a pO2 of 77 pCO2 88 pH of 7.13, Vent settings were adjusted with increasing the rate to 36. He is now on tidal volume of 350 FiO2 100% PEEP is 10 and rate is 36. Another ABG is pending. But clearly patient is taking a downhill clinical course. Patient is quite septic, I will likely change his central line, and place a new central line in this patient today and remove the old central line/PICC line. Patient will receive a unit of packed RBCs for hemoglobin of 6.9. Considering the change in his overall clinical status, discussed his condition with son, would like to keep his dad as a full code, he is very well aware of the poor prognostic picture and how ill his dad is. Would like to keep him a full code. WBC count today is 20.03 hemoglobin 8.5, basic metabolic profile is normal BUN is 25 creatinine 0.4 total protein is 6.9 albumin is 1.9. Patient was seen today on 09/18/24, remains in the ICU, intubated and mechanically ventilated. Patient is still requiring assist-control rate of maximal ventilatory support with rate of 36 tidal volume increased today up to 400 FiO2 decreased from 100% to 70% PEEP remains at 12. Earlier ABG before changes were made at the FiO2 had been on tidal volume showed a pO2 of 77 pCO2 68 pH of 7.20. Patient is still requiring norepinephrine and I have been titrating the norepinephrine earlier this morning he is down to 0.18 from 0.46 yesterday micrograms per kilo per minute vasopressin is still at 0.04 units/min patient is on propofol at 50 mcg/kg/min Lasix drip at 20 mg/h and TPN at 75 cc/h. I am also treating the patient with vancomycin, Zerbaxa, and Eraxis was added to replace fluconazole yesterday by infectious disease specially with his positive blood cultures for Bella. Urine output is improving with the Lasix drip, he did not improve much with 1 dose of Lasix 60 mg IV push. Remains on Solu-Cortef at 100 mg IV push every 8 hours patient is in positive fluid balance about 6 L hence I decided to go with Lasix drip today. Labs today showed slight improvement in his WBC count down to 14.9 hemoglobin is 7.6, electrolytes are abnormal with a potassium of 6.1 BUN is 45 creatinine 0.82 chest x-ray continues show bilateral interstitial edema/infiltrates, could be cardiogenic or noncardiogenic pulmonary edema I believe it is mostly cardiogenic/related to fluid overload as he received significant fluids yesterday for low blood pressure. And he was not making much urine in the last 24 hours. Hence Lasix drip was started today. Patient was seen today on 09/19/2024, remains in the ICU, remains intubated and mechanically ventilated. Patient is on assist-control rate of 36 tidal volume 400 FiO2 65% and PEEP of 12. His ABG showed a pO2 of 142 pCO2 52 pH of 7.28, hence cut down his FiO2 down to 50%. The PEEP at 12. Patient remains hemodyn amically unstable, remains on norepinephrine at 0.08 mcg/kg/min, his vasopressin has been discontinued. TPN is at 75 cc/h. Remains on Lasix drip/infusion at 20 mg/h. He is on propofol at 50 mcg/kg/min remains on Solu-Cortef 50 mg every 8, Eraxis, Zerbaxa, vancomycin. Urine output is marginal at about 10 to 20 cc/h in spite of Lasix drip. Lovenox will be resumed today at 80 mg subcu twice daily. Patient is sedated, his overall clinical status is showing slight improvement compared to the clinical status couple of days ago. Chest x-ray continues to show evidence of interstitial edema although the possibility of ARDS is not entirely ruled out considering his overall septic picture. CBC is about the same with WBC of 7.7 hemoglobin 7.1. Platelets are 128,000. Basic metabolic profile is normal potassium is down to 5.2 BUN is 67 creatinine is slightly higher today 1.13. Blood sugar is 358. Patient was seen today on 09/20/2024, remains in the ICU intubated mechanically ventilated. On assist-control rate of 36 tidal volume 400 FiO2 50% PEEP of 12, no ABG done today, however his O2 saturation is in the high 90s about 98%. Patient had a low hemoglobin today and he will need a unit of blood/packed RBCs for low hemoglobin. No active bleeding noted, Hemoccult stools will be done t lizette. Patient remains on Eraxis and Zerbaxa, his vancomycin was discontinued remains on lower dose of Solu-Cortef 50 mg IV push every 12 hours. Continues to have poor urine output and his renal functioning is getting a bit worse. Nephrology was consulted, patient received initially significant amount of fluids for his presentation of sepsis, and he remained oliguric in spite of fluid boluses. Then he was placed on Lasix drip which initially was working fine, now that urine output is rather marginal and spite of Lasix drip at 20 mg an hour. I am recommending a trial of albumin followed by 80 mg of Lasix IV push. And hopefully his urine output will picker with the albumin and with the blood transfusion which is scheduled to be done soon. Vancomycin has been discontinued. Chest x-ray continues to show evidence of interstitial edema. Labs are reviewed his potassium is 5 bicarb is 20 BUN is 83 creatinine 1.49 platelets are 105 hemoglobin 6.3. Progress note dated September 21, 2024. The patient remains on volume assist-control, rate 36, tidal volume 400, FiO2 50%, PEEP of 12. Blood gases were not obtained. He continues on TPN at 75 cc an hour, propofol at 50 mcg/kg/min, saline at 10 cc an hour, and norepinephrine is currently on hold. Antibiotic douglas, he continues on vancomycin, and Eraxis. White count is 6.9, hemoglobin 7.6, hematocrit 24.3, and platelet count 115,000. Sodium 137, potassium 5.1, chlorides 103, CO2 18, anion gap 16, BUN 99, creatinine 1.58. Glucose is 228. Calcium 8.1, phosphorus 5.4, magnesium 2.5. Culture data shows evidence of Pseudomonas aeruginosa back on August 29, Pseudomonas in the bronchial washings on September 07, and blood cultures positive, September 18, currently pending. Chest x-ray is largely unchanged, shows patchy diffuse airspace opacities, with a small right-sided pleural effusion. Progress note dated September 22, 2024. The patient is seen today in room 252. He remains on volume assist-control. Settings include volume assist-control 36, tidal volume 400, FiO2 50%, PEEP of 12. He is getting propofol at 50 mcg/kg/min, norepinephrine at 3 mcg/min, and TPN at 75 cc an hour. He is having hemodialysis today. The goal is removal of 1 to 2 L of fluid. He continues on Eraxis. We were able to place a right radial arterial line. We will repeat a blood gas, after hemodialysis. Current laboratory data includes a white count 7.4, hemoglobin 7.3, hematocrit 23.4, and a platelet count of 114,000. Sodium 134, potassium 5.4, chlorides 104, CO2 15, anion gap 15, BUN 110, creatinine 1.79. Glucose is 153. Calcium is 8.3. Previous blood in sputum sampling, showed evidence of Pseudomonas aeruginosa. The patient also has previous blood culture showing evidence of Bella species. Chest x-ray today is largely unchanged. Progress note dated September 23, 2024. 49-year-old male seen today in room 252. He remains on mechanical ventilation. He is on volume assist-control, rate 36, tidal volume 400, FiO2 40%, PEEP of 12. Blood gases show pO2 100, pCO2 44, pH is 7.30. Patient continues on norepinephrine at 5.6 mcg/min, propofol at 50 mcg/kg/min, TPN at 33 cc an hour. He is getting saline at 10 cc an hour. He had hemodialysis yesterday, September 22, and 1 L of fluid was removed. He continues on Eraxis, as per infectious diseases. White count is 9.0, hemoglobin 7.7, hematocrit 24, and platelet count is 155,000. Sodium 132, potassium 4.5, chlorides 96, CO2 20, anion gap 16, BUN 80, and creatinine 1.69. Glucose is 145. Calcium 8.5. Most recent blood cultures, on September 18, were positive for Bella. Today's chest x-ray is largely unchanged. Progress note dated September 24, 2024. 49-year-old male seen today in room 252. The patient continues on life support, IV volume assist-control, rate 36, tidal volume 400, FiO2 40%, PEEP of 12. Blood gases show pO2 100, pCO2 42, pH is 7.39. The patient is getting propofol at 15 mcg/kg/min, norepinephrine at 4 mcg/min, TPN at 33 cc an hour, and saline at 10 cc an hour. The patient's hemoglobin is 7. He continues on Eraxis. The patient static lung compliance is 23.5 mL/cm water. He has very stiff lungs. White count is 6.7, hemoglobin 7, hematocrit 22.4, platelet count 158,000. Sodium 130, potassium 4, chlorides 95, CO2 22, anion gap 13, BUN 58, creatinine 1.52. Glucose is 114. Calcium 8.3. Magnesium 1.7. No recent new culture data. Chest x-ray is about the same as it was a day before. It shows right basilar airspace opacities, with a small right-sided pleural effusion. There was some interstitial prominence. Progress note dated September 25, 2024. 49-year-old male seen today in room 252. He remains on volume assist-control, rate 36, tidal volume 400, FiO2 30%, and PEEP of 12, to be dropped to a PEEP of 8. Blood gases show pO2 of 82, pCO2 36, pH of 7.49. The patient is on TPN at 33 cc an hour, propofol at 30 mcg/kg/min, and norepinephrine at about 3 mcg/min. He is having hemodialysis today. Goal is to remove 2 to 3 L if tolerated. The patient continues on Eraxis. White count 7.5, hemoglobin 7.6, hematocrit 23.9, and platelet count of 194,000. Sodium 129, potassium 3.5, chloride 94, CO2 24, anion gap normal, BUN 35, creatinine 1.06. Glucose is 115. Albumin is 2.5. Recent blood cultures are positive for Bella. Chest x-ray is largely u nchanged. There is right basilar airspace disease, with a small right-sided pleural effusion. Progress note dated September 26, 2024. 49-year-old male seen today in room 252. He remains on volume assist-control, rate 36, tidal volume 400, FiO2 30%, PEEP of 8. Blood gases show pO2 of 73, a PCO2 of 34, and a pH of 7.54. He continues on propofol at 20 mcg/kg/min, norepinephrine at approximately 2 mcg/min, TPN at 33 cc an hour. The patient does continue on Eraxis, for fungemia. Current labs showed a white count of 7.32, hemoglobin 7.5, hematocrit 23.7, and a normal platelet count. Sodium 132, potassium 3.4, chloride 79, CO2 25, anion gap 8, BUN 22, and creatinine 0.87. Chest x-ray shows bilateral infiltrates, consistent with either pneumonia, or fluid overload. The chest x-ray is largely unchanged from the prior x-ray. Progress note dated September 27, 2024. 49-year-old male again seen in room 252. He remains on mechanical ventilation. He is on volume assist-control, rate 36, tidal volume 400, FiO2 30%, PEEP of 8. Blood gases show PO279, PCO2 of 34, pH is 7.54. The patient continues on propofol at 20 mcg/kg/min, norepinephrine at 2 mcg/min, TPN at 33 cc an hour. He had hemodialysis yesterday, 3 L was removed. He continues on Eraxis. In that regard, I did ask the nurse to call the infectious disease doctor, to get a stop date on this medication. White count 6.9, hemoglobin 7.8, hematocrit 24.8, platelet count 224,000. Sodium 131, potassium 3.4, chloride 97, CO2 26, anion gap 8, BUN 19, and creatinine 0.87. Calcium is 8.1. Chest x-ray, in my opinion, is improved. Patient was seen today on 10/09/2024, remains in the ICU, intubated mechanically ventilated, awake, off propofol, not requiring any pressors at this point, patient remains on assist-control rate of 24 tidal volume 400 FiO2 30% and PEEP of 5 patient is receiving hemodialysis during my evaluation. Remains on TPN at 85 cc/h. Chest x-ray is showing improvement in his bilateral airspace disease. Patient remains on Solu-Cortef, and I changed that to oral 25 mg p.o. twice daily. Labs today showed WBC count of 6.2 hemoglobin 8.7 electrolytes are normal BUN is 79 creatinine 2.02 Patient was seen today on 10/10/2024, remains in the ICU intubated mechanically ventilated, on assist-control rate of 24 tidal volume 400 FiO2 30% PEEP of 5 no ABG has been done today. Patient remains on TPN at 85 cc/h. Patient remains on hemodialysis Saturday and Saturday patient had a swallow evaluation and recommendation was chopped diet. We have placed the patient yesterday on Cortef orally. Remains on heparin subcu. He is hemodynamically stable, not requiring any pressors. Chest x-ray. Continues to show stable chest. Small pleural effusions noted. WBC count is 5.8 hemoglobin 8.2 electrolytes showed low sodium 129 potassium 3.5 BUN 55 creatinine 1.59 Patient was seen today on 10/11/2024, patient remains in the ICU intubated mechanically ventilated, on assist-control rate 24 with tidal volume 400 FiO2 30% PEEP of 5 patient is resting, he is not in any distress he is not requiring any pressors TPN is at 85 cc/h. CBC is basically unremarkable hemoglobin is 8.9 electrolytes are normal BUN is 84 creatinine 2.44. Clinically I believe this is the best I have seen this patient since his last admission. Chest x-ray showed minimal basilar atelectasis especially at the left base. This is relatively chronic. Progress note dated October 12, 2024. 49-year-old male who is now been in the hospital for 49 days. The patient was last seen by me on September 27. Currently, he remains on mechanical ventilation. He is on volume assist-control, rate 24, tidal volume 400, FiO2 30%, PEEP of 5. The patient is not receiving any IV fluids, or antibiotics. The patient is scheduled to have hemodialysis today. He is getting TPN at 85 cc an hour. His last hemodialysis session was last Saturday, and 3 L was removed. He is stable on the ventilator. His peak airway pressure is 27 cm of water. His plateau pressure of 17 cm of water. Current labs with a white count of 4.55, hemoglobin 8.1, hematocrit 25.1, platelet count 141,000. Sodium 136, potassium 5.1, chlorides 101, CO2 23, BUN 108, and creatinine 2.81. Anion gap is 12. Glucose is 155. Chest x-ray is largely unchanged. According to the nurses, the patient had an uneventful night. Progress note dated October 13, 2024. 49-year-old male, seen today in room 252. He is now been in the hospital for 50 days. The patient is doing about the same. He had an uneventful night according to the nurses. He remains on mechanical ventilation. Vent settings include volume assist-control, rate 24, tidal volume 400, FiO2 30%, PEEP of 5. There were no blood gases done. He does not have an arterial line. Also, he refused a chest x-ray today. The patient is currently on TPN at 85 cc an hour. Current labs good a white count of 4.5, hemoglobin 8.1, hematocrit 26.9, platelet count 243,000. Sodium 135, potassium 3.5, chlorides 100, CO2 24, anion gap 11, BUN 63, creatinine 1.94. Glucose is 137. Progress note dated October 14, 2024. 49-year-old male, with ventilator dependent respiratory failure. The patient is seen in room 252. The patient has not been here for 46 days. The patient remains on the same ventilator settings. That includes a volume assist-control mode, rate 24, tidal volume 400, FiO2 30%, PEEP of 5. No gases were done. There is no art line in this patient. He had an uneventful night according to the nurses. The discharge planners are still trying to find a place for him to be discharged to. Currently, he is getting TPN at 85 cc an hour. He is having hemodialysis today. The plan is to remove 2.5 L. His chest x-ray looks a bit better. White count 3.9, hemoglobin 8.7, hematocrit 28.6, and a normal platelet count. Sodium 137, potassium 4.2, chlorides 102, CO2 23, anion gap 12, BUN 86, and creatinine 2.64. Glucose 126. Calcium 9.9. Magnesium 2.1. Chest x-ray is slightly better, to unchanged. Objective - Vital Signs Vital signs: Vital Signs Temp 98.2 F 10/14/24 08:00 Pulse 108 H 10/14/24 10:00 Resp 25 H 10/14/24 10:00 BP 131/63 10/14/24 10:00 Pulse Ox 99 10/14/24 10:00 FiO2 30 10/14/24 10:00 Intake & Output 10/13/24 10/14/24 10/14/24 18:59 06:59 18:59 Intake Total 1305 1020 255 Output Total 830 995 20 Balance 475 25 235 Weight 87.6 kg 87.5 kg Intake: IV 200 Potassium Chloride 20 meq 200 In Water For Injection 1 100ml.bag @ 50 mls/hr IVPB Q2H [facility] Rx#: [id number] TPN/PPN 1105 1020 255 Mvi, Adult No.4 with Vit 935 K 10 ml Trace (Conc-1Ml/ Dose) 1 ml Sodium Acetate 50 meq Sodium Chloride 4Meq/ml Vial 120 meq Potassium Chloride 10 meq Calcium Gluconate 0.5 gm Magnesium Sulfate gm 0.5 gm In Amino Acids 5 %/ Dextrose 20 % 1,000 ml @ 85 mls/hr IV .BY DURATION [facility] Rx#:[id number] Mvi, Adult No.4 with Vit 170 1020 255 K 10 ml Trace (Conc-1Ml/ Dose) 1 ml Sodium Acetate 64 meq Sodium Chloride 4Meq/ml Vial 120 meq Potassium Chloride 10 meq Calcium Gluconate 0.5 gm Magnesium Sulfate gm 0.5 gm In Amino Acids 5 %/ Dextrose 20 % 1,000 ml @ 85 mls/hr IV .BY DURATION [facility] Rx#:[id number] Output: Urine 80 95 20 Stool 750 900 Other: Voiding Method Indwelling Catheter Indwelling Catheter ABP, PAP, CO, CI - Last Documented Arterial Blood Pressure - Exam No acute distress, currently connected to the ventilator. He has a tracheostomy tube in place. HEENT examination is grossly unremarkable. Mucous membranes are moist. No oral lesions. Neck supple. Full range of motion. No adenopathy thyromegaly or neck vein distention. Cardiovascular examination reveals regular rhythm rate. S1-S2 normal. No S3 or S4. No discernible murmur noted. Lungs reveal scattered rhonchi and crackles. No wheezes. Breath sounds equal bilaterally. Abdomen reveals an enterocutaneous fistula, normal bowel sounds. No tenderness. No masses. Extremities are intact. No cyanosis clubbing or edema. Right below the knee amputation. Has a right radial arterial line. Skin is without rash or lesion. Neurologic examination is brief but nonfocal. He does have significant muscle atrophy, and contractures. He has a right below the knee amputation. - Labs CBC & Chem 7: 10/14/24 05:35 10/14/24 05:35 Labs: Abnormal Lab Results - Last 24 Hours (Table) 10/13/24 10/13/24 10/14/24 Range/Units 12:15 17:50 01:20 WBC (4.50-10.00) 10*3/uL RBC (4.40-5.60) 10*6/uL Hgb (13.0-17.0) g/dL Hct (39.6-50.0) % MCHC (32.0-37.0) g/dL BUN (9-20) mg/dL Creatinine (0.66-1.25) mg/dL Glucose (74-99) mg/dL POC Glucose (mg/dL) 153 H 116 H 141 H (70-110) mg/dL 10/14/24 10/14/24 Range/Units 05:35 05:35 WBC 3.86 L (4.50-10.00) 10*3/uL RBC 3.17 L (4.40-5.60) 10*6/uL Hgb 8.7 L (13.0-17.0) g/dL Hct 28.6 L (39.6-50.0) % MCHC 30.4 L (32.0-37.0) g/dL BUN 86 H (9-20) mg/dL Creatinine 2.64 H (0.66-1.25) mg/dL Glucose 126 H (74-99) mg/dL POC Glucose (mg/dL) (70-110) mg/dL Assessment and Plan Assessment: Ventilator dependent respiratory failure, with failure to wean. Septic shock, likely secondary to Pseudomonas pneumonia, resolved. Possible fungemia, completed Eraxis. Chronic hypoxemic and hypercapnic respiratory failure, ventilator dependent, on a home ventilator, S/P tracheostomy. Left lower lobe atelectasis, possible pneumonia, with pseudomonal infection. History of severe tracheal stenosis, S/P tracheostomy. History of recurrent pneumonia, involving the left lower lobe. Tracheobronchomalacia. History of DVT. History of CVA. History of right below-knee amputation. Previous history of asystole/cardiac arrest, 2021. History of Crohn's disease, S/P enterocutaneous fistula, diverting ileostomy. Plan: Plan dated August 31, 2024. The patient is seen today in room 252. The patient's weight had on fluids, and the lactated Ringer's is cut back to 40 cc an hour. The patient will get 1 dose of Lasix IV push. Ventilator settings are noted. No blood gases today. It was apparently refused by the patient. Doppler of the left upper extremity was negative for DVT. Will check a procalcitonin level. The patient continues on norepinephrine at 8 mcg/min. He is getting TPN at 91 cc an hour. We will continue to follow make recommendations along the way. Labs, x-rays, and all medications are reviewed. Prognosis is certainly guarded. Dictation was produced using [employer] software. Please excuse any grammatical, word or spelling errors. Plan dated September 05, 2024. The patient is seen today in room 252. He is connected to his home mechanical ventilator. Settings of the same and include volume assist-control, rate 20, tidal volume 450, FiO2 45%, PEEP of 5. The patient is getting TPN at 65 cc an hour, norepinephrine has been weaned down to 1 mcg/min. He is getting lactated Ringer's at 50 cc an hour. He continues on Avycaz and tobramycin. We will continue to follow make recommendations. The patient also continues on hydrocortisone, for relative adrenal insufficiency. Prognosis is certainly guarded. We will continue to follow. Dictation was produced using [employer] software. Please excuse any grammatical, word or spelling errors. Plan dated September 06, 2024. The patient is seen today in room 252. He continues on mechanical ventilation. The patient is having increased secretions. Will add a scopolamine patch. He continues on Avycaz, and tobramycin. In addition, he continues on TPN at 65 cc an hour, and lactated Ringer's at 50 cc an hour. All labs, x-rays, and medications are reviewed. Chest x-ray is unchanged. We will continue to follow make recommendations. Prognosis is guarded. Dictation was produced using [employer] software. Please excuse any grammatical, word or spelling errors. Plan dated September 21, 2024. The patient is again seen today in room 252, with presumed ongoing sepsis. The patient has norepinephrine on standby, for blood pressure support, and recently was maxed out on multiple vasopressors. Currently, the patient continues on Eraxis, and vancomycin. The patient also continues on TPN at 75 cc an hour, p ropofol at 50 mcg/kg/min. All labs, x-rays, medications are reviewed. The patient's overall prognosis remains very poor. We will continue to follow. He remains a full code. Dictation was produced using [employer] software. Please excuse any grammatical, word or spelling errors. Plan dated September 22, 2024. The patient was seen to get her up to 52. We were able to place a right radial art line in the patient. There was good blood return from the arterial line, although the waveform was dampened. The patient continues on appropriate medications, including propofol at 50 mcg/kg/min, norepinephrine at 3 mcg/min. The patient is also getting TPN at 75 cc an hour. He is receiving hemodialysis today. He continues on Eraxis. After hemodialysis, the patient will have a arterial blood gas. Additional recommendations and suggestions are forthcoming. Prognosis is guarded. All labs, x-rays, and medications are reviewed. We will continue to follow the patient, make recommendations. Dictation was produced using [employer] software. Please excuse any grammatical, word or spelling errors. Plan dated September 23, 2024. The patient is again seen today in room 252. The patient's blood gases show pO2 100, pCO2 44, pH of 7.31. Patient continues on norepinephrine at 5.6 mcg/min, propofol at 50 mcg/kg/min. The patient is getting TPN at 33 cc an hour. The patient continues on Eraxis. He had hemodialysis yesterday. All labs, x-rays, and medications are reviewed. The patient remains a full code. Will continue to follow the patient, make recommendations along the way. Prognosis is guarded. Dictation was produced using [employer] software. Please excuse any grammatical, word or spelling errors. Plan dated September 24, 2024. According to the nurses, the patient had an uneventful night. He continues on volume assist-control, with a rate of 36, tidal volume 400, FiO2 40%, PEEP of 12. Blood gases are adequate with a pO2 of 100, pCO2 of 42, pH of 7.39. The patient continues on sedation with propofol at 50 mcg/kg/min. For his lower blood pressure, he is on norepinephrine at 4 mcg/min. He continues on parenteral nutrition, with TPN at 33 cc an hour. He also continues on Eraxis for fungemia. Hemoglobin is 7. No transfusion at this time. All labs, x-rays, and medications are reviewed. We will continue to follow the patient, make recommendations. The patient's overall prognosis remains poor. Dictation was produced using [employer] software. Please excuse any grammatical, word or spelling errors. Plan dated September 25, 2024. The patient is seen today in room 252. He continues on Eraxis. The patient continues on mechanical ventilation. Labs, x-rays, and medications are reviewed. We will continue to follow the patient, make recommendations. He is getting TPN at 33 cc an hour, and propofol at 30 mcg/kg/min. He continues on norepinephrine at about 3 mcg/min. He is having hemodialysis today. The goal is to remove somewhere between 2 to 3 L of fluid, pending his blood pressure response. The patient will be dropped from 12 cm of water down to 8 cm of water. Blood gases have been reviewed. All labs, x-rays, and medications have been reviewed. We will continue to follow. Prognosis is guarded. Dictation was produced using [employer] software. Please excuse any grammatical, word or spelling errors. Plan dated September 26, 2024. The patient is seen today, in room 252. The patient remains on mechanical ventilation. Blood gases are reasonable. All labs, x-rays, and medications are reviewed. The patient continues on propofol at 20 mcg/kg/min, and norepinephrine at roughly 2 mcg/min. We will continue to follow make recommendations. He is being nursed with TPN at 33 cc an hour. 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 Prognosis is guarded. Dictation was produced using [employer] software. Please excuse any grammatical, word or spelling errors. Plan dated September 27, 2024. The patient was seen today in room 252. She remains on mechanical ventilation. Blood gases are reviewed. PO279, [id number], pH of 7.54. Labs, x-rays, and all medications are reviewed. He continues on propofol at 20 mcg/kg/min, and a small dorsal norepinephrine at 2 mcg/min. Is getting TPN at 33 cc an hour. He continues on Eraxis. He had hemodialysis yesterday. 3 L was removed. All labs, x-rays, and medications are reviewed. We will continue to follow the patient, make recommendations. Dictation was produced using [employer] software. Please excuse any grammatical, word or spelling errors. Plan dated October 12, 2024. The patient is again seen in the intensive care unit. He remains critically ill on mechanical ventilator. He remains on volume assist-control, rate 24, tidal volume 400, FiO2 30%, PEEP of 5. He is getting TPN at 85 cc an hour. He is currently not on any antibiotics, or antifungals. He is scheduled to have hemodialysis today. His last hemodialysis session was last Saturday, and 3 L was removed. Currently he is stable on the ventilator. His peak airway pressure is 27, with a plateau pressure of 17. Labs, x-rays, and all medications are reviewed. The patient is currently being evaluated for transfer to another facility, but that will not happen before October 16, when apparently new insurance kicks in. We will continue to follow make recommendations. Prognosis is poor. Dictation was produced using [employer] software. Please excuse any grammatical, word or spelling errors. Plan dated October 13, 2024. The patient is again seen today in room 252, in the intensive care unit. The patient remains on mechanical ventilation. He is on volume assist-control, rate 24, tidal volume 400, FiO2 30%, PEEP of 5. No blood gases today. The patient also refused a chest x-ray today. He is getting TPN at 85 cc an hour. No addition of fluids. He is not on any antibiotics. He has completed all of that. Labs, x-rays, and medications are all reviewed. We will continue to follow the patient, make recommendations were appropriate. The discharge planners are hoping to be able to get the patient discharged eventually, once his new insurance, becomes available. Prognosis is certainly guarded. We will continue to follow. Dictation was produced using Dragon dictation software. Please excuse any grammatical, word or spelling errors. Plan dated October 14, 2024. The patient is again seen today in room 252. The patient remains on the ventilator. He is ventilator dependent respiratory failure, and cannot wean. The patient is currently otherwise stable, and he had an uneventful night according to the nurses. The patient is on volume assist-control, rate 24, tidal volume 400, FiO2 30%, PEEP of 5. The patient is getting TPN at 85 cc an hour. Hemodialysis is planned to remove 2.5 L of fluid from the patient today. In my opinion, the patients chest x-ray, is slightly improved unchanged. We will continue to follow the patient, and make recommendations along the way. The patient's overall prognosis remains poor. The patient remains critically ill. Dictation was produced using [employer] software. Please excuse any grammatical, word or spelling errors. Time with Patient: Greater than 30
[2024-10-14 11:11] LABS: Glucose,Whole Blood 138 mg/dL (70-110)
[2024-10-14 17:25] LABS: Glucose,Whole Blood 160 mg/dL (70-110)
--- NOTE | 2024-10-14 20:53 | P.PN ---
Subjective Progress Note Date: 10/14/24 Chief Complaint: Short of breath 49-year-old patient, follows with Dr. Murcia History of paraplegia, home vent at night, tracheostomy multiple admissions to the ICU for recurrent pneumonia. Patient's previous bronchial cultures been positive for Pseudomonas. He was discharged recently on IV cefepime. Also has a history of Crohn's disease with previous colectomy diverting ileostomy. History of DVT for which patient is on subcu Lovenox. Also had drug-resistant MRSA Pseudomonas. Patient currently does not have areas significant trach secretions. He has continues TPN. Has a right BKA. He does have slight movement in the right hand. Able to follow commands by nodding his head. Answering questions. He is scared by his elder son open. I was also the DPOA. August 30: Overnight patient started having more secretions through the tracheostomy. Vancomycin was added. Also blood pressure running low patient was put on Levophed drip. Otherwise sinus rhythm. Patient remains on the ventilator. Will also send off stool for C. difficile. Also patient IV cefepime. Getting TPN. August 31: ICU. Patient had positive fluid balance. Was given IV Lasix earlier. Remains on Levophed. Spiking fevers. Getting TPN. Stool negative for C. difficile. Patient is growing MDRO Pseudomonas aeruginosa. ID is ordered IV Zerbaxa. Which is currently not available. Patient's friend is visiting him in the ICU. Light trach secretion September 01: ICU. On the ventilator. FiO2 45%. PEEP of 5. Continues to have light trach secretions. Sputum cultures again growing Pseudomonas. Zerbaxa was obtained and resumed. Blood pressure running low. On Levophed. Patient's younger son at the bedside. Colostomy working fine. Has been spiking fevers. Cooling blanket. Ice packs. September 02: ICU. Ventilator FiO2 45%. PEEP of 5. Continues to have some trach secretions. IV Zerbaxa IV tobramycin. TPN lipids to continue. Also Levophed. Patient started cooling blankets since yesterday for temperatures. Along with the nurse speech therapy records were reviewed from last few admissions. Patient with multiple MBS and bedside swallow eval. No trouble with swallowing. Patient put on a chopped diet. Thin liquids. Patient did spike a fever of 101.7 earlier today. Low ionized calcium. IV gluconate given. September 03: ICU. On ventilator FiO2 45%. PEEP of 5. Mild trach secretions. Getting IV TPN lipids. IV tobramycin. Zerbaxa was substituted to Avycaz. By ID. No fever per se since yesterday. For blood pressure patient is also on Levophed and vasopressin. September 04: ICU. On ventilator FiO2 45%. PEEP of 5. Clear trach secretions. Getting IV TPN lipids. IV tobramycin. And IV Avycaz. Remains afebrile.. On Levophed and vasopressin. Awake. 09/06/2024 Patient is seen and evaluated in ICU; remains on mechanical ventilator, actually his home ventilator, with settings of volume assist-control, rate 20, tidal volume 450, FiO2 45%, PEEP of 5. - patient has been refusing blood; no ABGs to. He is getting lactated Ringer's at 50 cc an hour, TPN at 65 cc an hour. - patient remains on the same antibiotics. - Labs reviewed which reveal white count 5.21, hemoglobin 7.9, hematocrit 27.5, and platelet count 64,000. Sodium 141, potassium 3.5, chlorides 102, CO2 32, BUN 25, and creatinine 0.35. Glucose is 152. Calcium is 8. Albumin is 2.1. -Chest x-ray is largely unchanged. Critical care managing mechanical ventilation; recommending to add scopolamine patch for increased secretion -Patient remains on Avycaz and tobramycin - Continue with current TPN 09/07 Patient remains in the ICU lethargic. He is s/p tracheostomy Overnight he was more hypoxic they have to increase PEEP to 8. Also has a lot of secretions when needed for secretions suctioning to try to become apneic per Staff. Patient currently receiving Avycaz and tobramycin. on TPN also 09/08 Patient remains in the ICU awake and alert status post tracheostomy. He has contractures of both upper and lower extremities He is complaining from pain in his lungs. He is status post flexible bronchoscopy and bronchoalveolar lavage yesterday. He has previous sputum culture positive for Pseudomonas currently covered with ceftazidime and tobramycin. He is also on Lovenox 90 mg 09/09 Patient still in the ICU on mechanical ventilation via tracheostomy. PEEP is 8.0 as is yesterday Also he spiked little fever to 100.7. IV vancomycin is added to tobramycin and ceftazidime He is getting also bronchoscopy follow-up culture results 09/10 Patient feels clinically the same, he still getting breathing via mechanical ventilation through his tracheostomy with PEEP of 8. Patient feels he is required suctioning through his tracheostomy tube. He denies chest pain or pain anywhere else he can communicate by head signs and gestures. Hemodynamically stable and afebrile hemoglobin 7.4 platelet count 73 Glucose is controlled potassium 3.3 He remains on broad-spectrum antibiotic Rocephin at this time tobramycin and IV vancomycin added yesterday because he had low-grade fever. He is getting TPN. IV fluid Ringer lactate was stopped and patient was started on IV Lasix 20 mg 3 times a day continue with therapeutic dose of Lovenox as well 09/11 Patient remains in the ICU Remains on mechanical ventilation via tracheostomy He status post bronchoalveolar lavage 2 days ago, culture is growing Pseudomonas aeruginosa and corynebacterium Patient remains on broad-spectrum antibiotics with IV vancomycin, tobramycin, ceftazidime On IV Lasix also is on therapeutic dose of Lovenox 90 mg twice daily No IV fluids 09/12 Patient remains in the ICU Clinically close to what he was over the last 2 days still getting oxygen via his tracheostomy He remains on broad-spectrum antibiotic with Ceftin this time and IV vancomycin. Also he is on IV Lasix 20 mg and therapeutic dose of Lovenox. 09/13 Patient remains in the ICU on mechanical ventilation via tracheostomy Patient looks better today, he breathing better Less secretion Fentanyl patch increased 09/14. Patient seen and examined. Patient continues to be on mechanical ventilation via trach mask. Currently on TPN. Currently on IV Zerbaxa and vancomycin 09/15. Patient seen and examined.Vital signs done showed the patient overnight, heart rate 106, blood pressure 107/40, currently on ventilation. Labs reviewed showed WBC 7.27, hemoglobin 7.5, sodium 148 on potassium 4.3, BUN 23, creatinine 0.47 09/16. Patient seen and examined labs reviewed showing WBC 5.45, hemoglobin 9.6, platelet count 131, sodium 146, potassium 4.1, BUN 20, creatinine 0.47. Continue small amount of Levophed. Currently on Zerbaxa and vancomycin. Currently on TPN September 17: ICU. Patient has taken a turn for the worse today. Significant thick white secretions from the trach. Sinus rhythm. Receiving TPN. Patient is on Levophed and vasopressor. Rather high dose. FiO2 [address] of 10. [address] Ho earlier spoke to the patient/family. Remains full code September 18: ICU. Intubated FiO2 70 PEEP of 12. Sinus rhythm. Drips include IV propofol at 50 and Levophed at 0.13. Patient is off vasopressin. Patient secretions. Family at the bedside. September 19: ICU. Intubated. FiO2 50 and a PEEP of 12. Drips include IV Levophed and propofol. Also started on Lasix drip 10 mg an hour yesterday. Secretions present. September 20: ICU. Intubated. FiO2 50 and a PEEP of 12. Hemoglobin 6.3. Secondary to blood being given. Patient been on and off Levophed. On propofol. Lipids have been held. Continues with TPN. Lasix drip was discontinued. Lovenox has been held because of low hemoglobin. Unable anemia is felt to be combination of regular blood draws and possible element element of hemolysis from all the infection. No dark stool. Family at the bedside September 21: ICU. Intubated. Received 2 units of blood yesterday. Hemoglobin 7.6 today. Per nephrology renal replacement therapy. Dialysis access placed by Dr. Cadena. Patient earlier today on Levophed. Propofol. Getting TPN. Sinus rhythm. Urine output decreased September 22: ICU. Intubated. FiO2 15 of PEEP of 12. Seen earlier today. Dialysis being started. Been on IV Levophed propofol. Sinus rhythm. TPN. Sinus rhythm. September 23: ICU. Intubated. Due for another dialysis today. Saw the patient earlier today. Remains on IV Levophed propofol. Sinus rhythm. TPN. On fentanyl patch. September 24: ICU. Intubated. FiO2 40 and PEEP of 12. Remains on IV Levophed and propofol. IV TPN. Decrease trach secretions. IV antibiotics. Was due for dialysis earlier today. September 25: ICU. Intubated. FiO2 30%. Patient getting IV Levophed and propofol. IV TPN. Dialysis today. Receiving IV antibiotics. Does opens eyes occasionally. Some commands per nursing. September 26: ICU. Intubated. FiO2 30 and a PEEP of 8. Had 2 L hemodialysis removed yesterday. Getting hemodialysis today. Aiming for 2 to 3 L. Patient is on propofol. Currently Levophed on hold. Getting TPN. Patient is actually awake and following commands. Sinus rhythm. September 27: ICU. Intubated. FiO2 39 PEEP of 8. No dialysis today. Remains on IV Levophed propofol. TPN. There is a bedside. Patient asked me how is he doing. Had a lengthy information in terms of his guarded prognosis. Did tell him it is his choice about how he wishes to proceed. He needs to decide between treatment benefits versus in the suffering because of that entails from treatment and his recurrent infections etc. Especially in the context of decreased activity. Kidney failure, respiratory failure etc. September 28: ICU. Intubated. FiO2 30 and a PEEP of 8. For dialysis today. Off Levophed this morning. IV propofol. TPN. Some clear light to trach secret ions. Colostomy working. Poor urine output. September 29: ICU. Intubated. IV propofol Levophed. TPN. Awake. Discussed with Dr. Holt. Prognosis very poor. Probably treatment is the point of getting futile. Patient needs about 34 more days to go to long-term ventilator setting. September 30: ICU. Intubated. IV propofol. Currently off Levophed. TPN. Getting dialysis today. Awake. IV antifungal. Given a unit of blood for hemoglobin of 6.9 October 01: ICU. Intubated. IV propofol. Remains on Levophed. TPN dose adjusted. Dialysis. IV aniedulefungin. Eyes open. Vent. FiO2 30%. PEEP 5 September 18: ICU. Intubated. IV propofol. Off Levophed. TPN. Dialysis today. IV aniedulefungin last day on October 06. Per ID. Some trach secretions clear October 03: ICU. Intubated. IV propofol. TPN. Dialysis schedule will now be Saturday. Next dialysis will be on coming Saturday. IV aniedulefungin last day-I October 06. Minimal urine output-5 to 10 cc an hour. Awake. October 04: ICU. Intubated. IV propofol. TPN. Next dialysis on Saturday. IV elevated Lida function. Urine output remains to be minimal. Awake. Mother at the bedside. Does not have any questions. Sinus rhythm. 10/05/2024 Patient seen in follow-up today remains in the ICU on mechanical ventilation FiO2 is 30%. Patient is requiring some small dose Levophed as blood pressures were low maintained on hemodialysis. Multiple consultations following including infectious disease the patient is maintained on Eraxis which will be completed after October 06, 2024. Patient is continued on TPN and will continue. Prognosis remains poor and guarded at this time. 10/06/2024 Patient seen and evaluated in follow-up today with no significant changes other than blood sugars are becoming more elevated likely secondary to Cortef be resumed. Will add long-acting insulin and continue with sliding scale. Would recommend ACHS as well as at 2 AM as needed. Patient is afebrile continued on mechanical ventilation and will be completing Eraxis today. 10/07/2024 Patient seen in follow-up today continues on mechanical ventilation with an FiO2 of 30%, currently awake following commands and is maintained on low-dose propofol. Blood sugars extremely elevated above 500 and had started long-acting although no improvement, likely secondary to Solu-Cortef and is placed on insulin drip. Will adjust accordingly and titrate and attempt to wean as tolerated. Patient has completed Eraxis with infectious disease following closely. Hemoglobin was also noted to be low at 6.9 today and being transfused 1 unit and will follow-up on repeat labs this afternoon. Patient is scheduled to receive hemodialysis today. Patient is requesting if he can eat although is maintained on TPN and now with blood sugars of 500, no plans for resuming a diet as of today. 10/08/2024 Patient is seen in follow-up today is being closely monitored off antibiotic therapy and has completed Eraxis with infectious disease following closely. Patient is maintained on TPN along with Solu-Cortef and blood sugars were elevated requiring insulin drip as blood sugars were also noted to be over 500 yesterday. Blood sugars improved being started on long-acting along with sliding scale and insulin drip discontinued. Cortef also being adjusted per pulmonary netsuite consultant. Patient continues on mechanical ventilation is awake and alert. FiO2 is 30%. Hemoglobin is improved status post 1 unit PRBC and is 8.2 today. Sodium improved at 133 with a potassium of 4.3, BUN is 51 and creatinine is 1.48. Case management/social work is following and awaiting until new insurance becomes effective next month and looking into possible ECF versus LT AC. Patient does have significant complex comorbidities and extremely guarded prognosis, would benefit from LTAC. Patient is afebrile and most recent blood cultures remain negative. 10/09/2024 Patient is seen in follow-up this morning continues to be in the ICU. Patient being evaluated by speech as patient would like to eat and will await official report. Patient's blood sugars have improved and transitioned off insulin drip maintained on long-acting along with sliding scale and will continue. Case management/social work is following looking into possible ECF that can accommodate hemodialysis as well as his significant comorbidities and ventilation via tracheostomy. Patient would benefit from LTAC although is having insurance issues. New insurance will become effective in October to be able to receive more LTAC days. Patient with significant multiple comorbidities requiring higher level of care. Patient is afebrile and CBC is within normal limits with no active bleeding noted. Will continue to monitor closely and recommend follow-up labs. 10/12/2024 Patient is seen in follow-up today with multiple consultations following. Patient is currently receiving hemodialysis and hemoglobin is stable with no active bleeding noted. Patient is being closely monitored off antibiotic therapy with infectious disease following. Patient has completed Eraxis. Patient to continue on TPN and will follow-up on repeat labs. Cortef is being titrated and dose is being decreased. Continue monitoring Accu-Cheks and tight glycemic control. Patient is maintained on mechanical ventilation via tracheostomy with FiO2 of 30%. Awaiting for new insurance to become effective October 16 and then will be determined an ECF versus LTAC 10/13/2024 Patient is seen in follow-up today with no acute overnight issues noted. Hemoglobin is stable above 8.1 with no active bleeding noted. Blood sugar slightly elevated and Cortef is being weaned down. Patient is currently receiving hemodialysis. Apparently per nursing, new insurance becomes effective October 16, 2024 with case management following looking into possible LTAC versus ECF that can accommodate tracheostomy with chronic vent, TPN. Patient is afebrile and was recently reevaluated by speech maintained on diet with aspiration precautions ordered. 10/14/2024 Patient is continued on mechanical ventilation via tracheostomy with FiO2 of 30% with no changes made. Patient currently awaiting new insurance to become effective after October 16 to determine if patient has eligible LTAC days versus ECF. Patient is maintained on TPN and will continue at this time. Blood sugars controlled on current regimen and will adjust insulins accordingly. Patient is afebrile with no reported chest pain or palpitations. Patient is continued on hemodialysis with nephrology following closely. Hemoglobin is stable above 8 with no active bleeding noted. Recommend follow-up labs and replacing electrolytes per protocol. Chest x-ray reveals stable chest with continued effusions noted. Review of systems: Constitutional: No reports of fatigue, fever, or chills Cardiovascular: No reports of chest pain or palpitations Respiratory: No reports of shortness of breath or cough GI: No reports of nausea, vomiting, or diarrhea, reports eating very little : No reports of dysuria or retention Neurovascular: reports of weakness, and is bedbound All medications have been reviewed Active Medications Hydrocodone Bitart/Acetaminophen (Hydrocodone/Apap 10-325mg 1 Each Tab) 1 each PO Q4HR PRN PRN Reason: Pain 1-6 Last Admin: 10/14/24 09:14 Dose: 1 each Albuterol/Ipratropium (Ipratropium-Albuterol 3 Ml Neb) 3 ml INHALATION RT-Q4H PRN PRN Reason: shortness of breath Last Admin: 10/10/24 15:33 Dose: 3 ml Albuterol/Ipratropium (Ipratropium-Albuterol 3 Ml Neb) 3 ml INHALATION RT-QID [facility] Last Admin: 10/14/24 20:47 Dose: 3 ml Artificial Tears (Artificial Tears-Hypromellose Drops 15 Ml Btl) 1 drops BOTH E YES QID PRN PRN Reason: Dry Eye(s) Last Admin: 09/04/24 12:52 Dose: 1 drops Chlorhexidine Gluconate (Chlorhexidine Gluconate 15 Ml Cup) 15 ml MUCOUS MEM BID [facility] Last Admin: 10/14/24 20:05 Dose: Not Given Darbepoetin Andry (Darbepoetin Andry 40 Mcg/0.4 Ml Syringe) 40 mcg SQ Q7D [facility] Last Admin: 10/08/24 11:38 Dose: 40 mcg Dextrose/Water (Dextrose 50% Syringe 50 Ml) 25 ml IVP PER PROTOCOL PRN; Protocol PRN Reason: Hypoglycemia Dextrose/Water (Dextrose 50% Syringe 50 Ml) 50 ml IVP PER PROTOCOL PRN; Protocol PRN Reason: Hypoglycemia Heparin Sodium (Porcine) (Heparin Sodium,Porcine 5,000 Unit/Ml 1 Ml Vial) 5,000 unit SQ Q8HR [facility] Last Admin: 10/14/24 16:11 Dose: 5,000 unit Hydrocortisone (Hydrocortisone 10 Mg Tab) 10 mg PO DAILY [facility] Last Admin: 10/14/24 11:06 Dose: 10 mg Hydrocortisone (Hydrocortisone 10 Mg Tab) 5 mg PO HS [facility] Last Admin: 10/14/24 20:06 Dose: 5 mg Hydromorphone HCl (Hydromorphone 1 Mg/Ml 1 Ml Syringe) 1 mg IVP Q3HR PRN PRN Reason: Pain 7-10 Last Admin: 10/14/24 19:05 Dose: 1 mg Fat Emulsion Intravenous 250 (ml/ IV Solution) 250 mls @ 21 mls/hr IV Q72H [facility] Last Admin: 10/14/24 11:05 Dose: 21 mls/hr Sodium Acetate 64 meq/ Sodium Chloride 120 meq/ Potassium Chloride 10 meq/ Calcium Gluconate 0.5 gm/ Magnesium Sulfate 0.5 gm/ Amino Acids/Dextrose 1,073 mls @ 85 mls/hr IV .BY DURATION [facility] Last Infusion: 10/14/24 17:41 Dose: 0 mls/hr Parenteral Vitamin Supplement 10 ml/ Zinc/Copper/Manganese/Selenium 1 ml/ Sodium Acetate 64 meq/ Sodium Chloride 120 meq/ Potassium Chloride 10 meq / Calcium Gluconate 0.5 gm/Magnesium Sulfate 0.5 gm/Amino Acids/Dextrose 1,084 mls @ 85 mls/hr IV .BY DURATION [facility] Last Admin: 10/14/24 17:42 Dose: 85 mls/hr Insulin Glargine (Insulin Glargine (Lantus) 100 Unit/Ml Syr) 20 unit SQ DAILY@0700 [facility] Last Admin: 10/14/24 08:33 Dose: 20 unit Insulin Human Lispro (Insulin Lispro (Humalog) 100 Unit/Ml 10 Ml Vl) 0 unit SQ Q6H [facility]; Protocol Last Admin: 10/14/24 17:34 Dose: 2 unit Lorazepam (Lorazepam 1 Mg/0.5 Ml Vial) 1 mg IV Q6HR PRN PRN Reason: Anxiety Last Admin: 10/14/24 16:11 Dose: 1 mg Miscellaneous Information (Potassium Replacement Protocol 1 Each Misc) 1 each MISCELLANE DAILY PRN; Protocol PRN Reason: Per Protocol Miscellaneous Information (Magnesium Replacement Protocol 1 Each Misc) 1 each MISCELLANE DAILY PRN; Protocol PRN Reason: Per Protocol Naloxone HCl (Naloxone 0.4 Mg/Ml 1 Ml Vial) 0.2 mg IV Q2M PRN PRN Reason: Opioid Reversal Ondansetron HCl (Ondansetron 4 Mg/2 Ml Vial) 4 mg IVP Q6HR PRN PRN Reason: Nausea And Vomiting Last Admin: 09/01/24 19:41 Dose: 4 mg Pantoprazole Sodium (Pantoprazole 40 Mg/10 Ml Vial) 40 mg IV DAILY ANNIE Last Admin: 10/14/24 08:30 Dose: 40 mg Petrolatum (Zinc Oxide Paste (Z-Guard) 1 Applic) 1 applic TOPICAL BID PRN; Protocol PRN Reason: Wound Healing Physical examination: GENERAL:, 49-year-old male who is asleep although arousable, awake, alert and oriented x 3, following commands continued on mechanical ventilation via tracheostomy with an FiO2 of 30%, chronically ill-appearing but EYES: Pupils equal. Conjunctiva normal HEENT: External appearance of nose and ears normal, oral cavity dry NECK: JVD unable to assess; masses not palpable. Tracheostomy HEART: First and second heart sounds are normal; no edema. LUNGS: decreased breath sounds bilaterally, some crackles ABDOMEN: Soft, nontender, liver spleen not palpable, no masses palpable. Double barrel ostomy. PSYCH: Following simple commands, lethargic, undergoing hemodialysis MUSCULOSKELETAL: Right BKA. Left foot drop. Left hand contracture. Right hand also with contracture but able to have some movements NEUROLOGICAL: Cranial nerves grossly intact; no facial asymmetry, slight movement in the right arm. Assessment plan: - Basilar pneumonia. Previous admission sputum was positive for Pseudomonas aeruginosa - Candidemia secondary to left chest wall PICC line that has been discontinued. And repeat blood cultures on September 22 negative. - Fluid overload - Acute kidney injury from ATN from septic shock. And possibly vancomycin toxicity. Oliguric. Volume overload. First dialysis was on September 22.-Has been getting dialysis nearly daily. From now on dialysis schedule be Saturday - Metabolic alkalosis, improved - Septic shock: Requiring pressor support, improved and off pressors - Acute on chronic hypoxic and hypercapnic respiratory failure, vent dependent at night at home, FiO2 30% - Tracheostomy with trach collar -Acute normocytic anemia of chronic disease and hospital-acquired anemia from blood draws and possible hemolysis from infection - Thrombocytopenia likely from sepsis: Corrected - Right below-knee amputation history - Chronic quadriparesis. Including left foot drop. Left arm contracture. Some right hand contracture. Some movement in the right arm - Crohn's disease with double barrel ostomy bag in place since 09/2021 - TPN and lipids, chronically, maintained on Saturday/Saturday/Saturday schedule - Hyperglycemia, likely secondary to Solu-Cortef as well as TPN, started on insulin drip 10/07/2024, improved although continues to be elevated and uncontrolled, off insulin drip - Full code - DPDAVID, haylee PENA Plan: Patient remains in the ICU on mechanical ventilation with an FiO2 of 30% via tracheostomy Continued per propofol along with Dilaudid Patient has completed Eraxis 10/06/2024 per ID recommendations being closely monitored off antibiotic therapy Continue current supportive care Nephrology following and patient is maintained on hemodialysis currently receiving today Blood sugars have been elevated and uncontrolled likely secondary to Solu-Cortef being resumed, patient was on insulin drip and has transitioned to long-acting along with sliding scale, Solu-Cortef reduced as well, currently 5 mg at night and 10 mg during the day of Cortef Recommend follow-up labs in the a.m. including CBC and CMP. Replace electrolytes per protocol. Transfuse if 7 or less on hemoglobin. No active bleeding noted and hemoglobin is stable above 8 Case management/social work following and awaiting new insurance to become effective October 16, discharge planning which will require LTAC versus ECF Overall prognosis is extremely poor and per family and patient, CODE STATUS remains full code The impression and plan of care has been dictated by Alyssa Hernandez, Nurse Practitioner as directed. Dr. Gerry MD I have performed a history and examination and MDM of this patient, discussed the same with the dictator, and agree with the dictator's assessment and plan as written ,documented as a scribe. Based on total visit time, I have performed more than 50% of the visit. Objective - Vital Signs Vital signs: Vital Signs Temp 97.9 F 10/14/24 16:00 Pulse 114 H 10/14/24 19:00 Resp 24 10/14/24 19:00 BP 95/53 10/14/24 19:00 Pulse Ox 99 10/14/24 19:00 FiO2 30 07/30/25 19:00 Intake & Output 10/14/24 10/14/24 10/15/24 06:59 18:59 06:59 Intake Total 1020 3970.917 Output Total 995 6230 Balance -2258.083 Weight 87.5 kg Intake: Intake, IV Titration 2010. Amount Mvi, Adult No.4 with Vit 1084 K 10 ml Trace (Conc-1Ml/ Dose) 1 ml Sodium Acetate 64 meq Sodium Chloride 4Meq/ml Vial 120 meq Potassium Chloride 10 meq Calcium Gluconate 0.5 gm Magnesium Sulfate gm 0.5 gm In Amino Acids 5 %/ Dextrose 20 % 1,000 ml @ 85 mls/hr IV .BY DURATION [facility] Rx#:[id number] Sodium Acetate 64 meq 927.917 Sodium Chloride 4Meq/ml Vial 120 meq Potassium Chloride 10 meq Calcium Gluconate 0.5 gm Magnesium Sulfate gm 0.5 gm In Amino Acids 5 %/ Dextrose 20 % 1,000 ml @ 85 mls/hr IV .BY DURATION [facility] Rx#:[id number] TPN/PPN 1020 1020 Mvi, Adult No.4 with Vit 1020 1020 K 10 ml Trace (Conc-1Ml/ Dose) 1 ml Sodium Acetate 64 meq Sodium Chloride 4Meq/ml Vial 120 meq Potassium Chloride 10 meq Calcium Gluconate 0.5 gm Magnesium Sulfate gm 0.5 gm In Amino Acids 5 %/ Dextrose 20 % 1,000 ml @ 85 mls/hr IV .BY DURATION [facility] Rx#:[id number] Lipid 189 Fat Emulsion 20% 250 ml 189 In Empty Bag 1 bag @ 21 mls/hr IV Q72H [facility] Rx#: [id number] Hemodialysis 750 Output: Urine 95 80 Stool 900 900 Hemodialysis 3000 Hemodialysis Net Amount 2250 Other: Voiding Method Indwelling Catheter Indwelling Catheter ABP, PAP, CO, CI - Last Documented Arterial Blood Pressure - Labs CBC & Chem 7: 10/14/24 05:35 10/14/24 05:35 Labs: Abnormal Lab Results - Last 24 Hours (Table) 10/14/24 10/14/24 10/14/24 Range/Units 01:20 05:35 05:35 WBC 3.86 L (4.50-10.00) 10*3/uL RBC 3.17 L (4.40-5.60) 10*6/uL Hgb 8.7 L (13.0-17.0) g/dL Hct 28.6 L (39.6-50.0) % MCHC 30.4 L (32.0-37.0) g/dL BUN 86 H (9-20) mg/dL Creatinine 2.64 H (0.66-1.25) mg/dL Glucose 126 H (74-99) mg/dL POC Glucose (mg/dL) 141 H (70-110) mg/dL 10/14/24 10/14/24 Range/Units 11:09 17:23 WBC (4.50-10.00) 10*3/uL RBC (4.40-5.60) 10*6/uL Hgb (13.0-17.0) g/dL Hct (39.6-50.0) % MCHC (32.0-37.0) g/dL BUN (9-20) mg/dL Creatinine (0.66-1.25) mg/dL Glucose (74-99) mg/dL POC Glucose (mg/dL) 138 H 160 H (70-110) mg/dL
[2024-10-14 23:40] LABS: Glucose,Whole Blood 154 mg/dL (70-110)
[2024-10-15 03:45] LABS: Basophils # (A) 0.02 10*3/uL (0.00-0.10); Basophils % (A) 0.5 %; Eosinophils # (A) 0.09 10*3/uL (0.04-0.35); Eosinophils % (A) 2.2 %; HCT 24.9 % (39.6-50.0); HGB 7.5 g/dL (13.0-17.0); Lymphocytes # (A) 1.00 10*3/uL (0.90-5.00); Lymphocytes % (A) 23.9 %; MCH 27.4 pg (27.0-32.0); MCHC 30.1 g/dL (32.0-37.0); MCV 90.9 fL (80.0-97.0); Monocytes # (A) 0.45 10*3/uL (0.20-1.00); Monocytes % (A) 10.8 %; Neutrophils # (A) 2.60 10*3/uL (1.80-7.70); Neutrophils % (A) 62.1 %; Platelet Count 265 10*3/uL (140-440); RBC 2.74 10*6/uL (4.40-5.60); RDW 17.7 % (11.5-14.5); WBC 4.18 10*3/uL (4.50-10.00)
[2024-10-15 04:30] LABS: ALT 60 U/L (4-49); AST 58 U/L (17-59); African American GFR (CKD) 45 (>60 ml/min/1.73 sqM); Albumin 2.5 g/dL (3.5-5.0); Alkaline Phosphatase 269 U/L (38-126); Anion Gap 7 mmol/L; Blood Urea Nitrogen 50 mg/dL (9-20); Calcium 9.4 mg/dL (8.4-10.2); Carbon Dioxide 28 mmol/L (22-30); Chloride 99 mmol/L (98-107); Glucose 134 mg/dL (74-99); Magnesium 1.9 mg/dL (1.6-2.3); Non-African American GFR(CKD) 39 (>60 ml/min/1.73 sqM); Potassium 3.5 mmol/L (3.5-5.1); Sodium 134 mmol/L (137-145); Total Protein 6.9 g/dL (6.3-8.2)
[2024-10-15 07:10] LABS: Glucose,Whole Blood 154 mg/dL (70-110)
[2024-10-15] MEDS: MAGNESIUM SULFATE-D5W PMX 1 GM in DEXTROSE/WATER 1 100ML.BAG IVPB ONE (08:21)
[2024-10-15] MEDS: POTASSIUM CHLORIDE 20 MEQ in WATER FOR INJECTION 1 100ML.BAG IVPB SCH (08:22)
--- NOTE | 2024-10-15 08:32 | XR ---
EXAMINATION TYPE: XR chest 1V portable DATE OF EXAM: 10/15/2024 5:18 AM COMPARISON: 10/14/2024 CLINICAL INDICATION: Male, 49 years old with history of Mechanical ventilation, FINDINGS: Indwelling tubes and catheters are unchanged. No change in bibasilar opacities. Stable appearance of the cardio-mediastinal structures at this time. Pleural effusion unchanged. IMPRESSION: 1. Stable portable chest. Clinical correlation and follow up until resolution is recommended. [facility], , 10/15/2024 8:29 AM
[2024-10-15] MEDS: SODIUM PHOSPHATE 30 MMOL in DEXTROSE 5% IN WATER 250 ML IVPB ONE (08:51)
--- NOTE | 2024-10-15 09:22 | P.PN ---
Subjective Patient is seen in follow-up for acute kidney injury, hemodialysis dependent. Started on hemodialysis September 22, 2024. Receiving TPN. Tolerated 2.2 L ultrafiltration yesterday. Potassium being replaced. Vital signs are stable. General: Awake on vent. HEENT: Tracheostomy noted. LUNGS: Scattered rhonchi. HEART: Rate and Rhythm are regular. ABDOMEN: Ostomy noted. EXTREMITITES: Trace edema left lower extremity. Right BKA. Objective - Vital Signs Vital signs: Vital Signs Temp 98.9 F 10/15/24 08:00 Pulse 107 H 10/15/24 08:17 Resp 25 H 10/15/24 08:00 BP 108/53 10/15/24 08:00 Pulse Ox 98 10/15/24 08:00 FiO2 30 10/15/24 08:05 Intake & Output 10/14/24 10/15/24 10/15/24 18:59 06:59 18:59 Intake Total 3970.917 1124 370 Output Total 6230 95 1160 Balance -2259.083 1029 -790 Weight 87.6 kg Intake: IV 200 Magnesium Sulfate-D5w Pmx 100 1 gm In Dextrose/Water 1 100ml.bag @ 100 mls/hr IVPB ONCE ONE Rx#: [id number] Potassium Chloride 20 meq 100 In Water For Injection 1 100ml.bag @ 50 mls/hr IVPB Q2H [facility] Rx#: [id number] Intake, IV Titration 2010.917 0 Amount Mvi, Adult No.4 with Vit 1084 K 10 ml Trace (Conc-1Ml/ Dose) 1 ml Sodium Acetate 64 meq Sodium Chloride 4Meq/ml Vial 120 meq Potassium Chloride 10 meq Calcium Gluconate 0.5 gm Magnesium Sulfate gm 0.5 gm In Amino Acids 5 %/ Dextrose 20 % 1,000 ml @ 85 mls/hr IV .BY DURATION [facility] Rx#:[id number] Sodium Acetate 64 meq 927.917 0 Sodium Chloride 4Meq/ml Vial 120 meq Potassium Chloride 10 meq Calcium Gluconate 0.5 gm Magnesium Sulfate gm 0.5 gm In Amino Acids 5 %/ Dextrose 20 % 1,000 ml @ 85 mls/hr IV .BY DURATION [facility] Rx#:[id number] TPN/PPN 1020 935 170 Mvi, Adult No.4 with Vit 1020 935 170 K 10 ml Trace (Conc-1Ml/ Dose) 1 ml Sodium Acetate 64 meq Sodium Chloride 4Meq/ml Vial 120 meq Potassium Chloride 10 meq Calcium Gluconate 0.5 gm Magnesium Sulfate gm 0.5 gm In Amino Acids 5 %/ Dextrose 20 % 1,000 ml @ 85 mls/hr IV .BY DURATION [facility] Rx#:[id number] Lipid 189 189 Fat Emulsion 20% 250 ml 189 189 In Empty Bag 1 bag @ 21 mls/hr IV Q72H [facility] Rx#: [id number] Hemodialysis 750 Output: Urine 80 95 10 Stool 900 1150 Hemodialysis 3000 Hemodialysis Net Amount 2250 Other: Voiding Method Indwelling Catheter Indwelling Catheter Indwelling Catheter ABP, PAP, CO, CI - Last Documented Arterial Blood Pressure - Labs CBC & Chem 7: 10/15/24 02:54 10/15/24 02:54 Labs: Abnormal Lab Results - Last 24 Hours (Table) 10/14/24 10/14/24 10/14/24 Range/Units 11:09 17:23 23:38 WBC (4.50-10.00) 10*3/uL RBC (4.40-5.60) 10*6/uL Hgb (13.0-17.0) g/dL Hct (39.6-50.0) % MCHC (32.0-37.0) g/dL Sodium (137-145) mmol/L BUN (9-20) mg/dL Creatinine (0.66-1.25) mg/dL Glucose (74-99) mg/dL POC Glucose (mg/dL) 138 H 160 H 154 H (70-110) mg/dL Phosphorus (2.5-4.5) mg/dL Total Bilirubin (0.2-1.3) mg/dL ALT (4-49) U/L Alkaline Phosphatase (38-126) U/L Albumin (3.5-5.0) g/dL 10/15/24 10/15/24 10/15/24 Range/Units 02:54 02:54 07:09 WBC 4.18 L (4.50-10.00) 10*3/uL RBC 2.74 L (4.40-5.60) 10*6/uL Hgb 7.5 L (13.0-17.0) g/dL Hct 24.9 L (39.6-50.0) % MCHC 30.1 L (32.0-37.0) g/dL Sodium 134 L (137-145) mmol/L BUN 50 H (9-20) mg/dL Creatinine 1.98 H (0.66-1.25) mg/dL Glucose 134 H (74-99) mg/dL POC Glucose (mg/dL) 154 H (70-110) mg/dL Phosphorus 1.7 L (2.5-4.5) mg/dL Total Bilirubin 2.0 H (0.2-1.3) mg/dL ALT 60 H (4-49) U/L Alkaline Phosphatase 269 H (38-126) U/L Albumin 2.5 L (3.5-5.0) g/dL Assessment and Plan Plan: Assessment: 1. Acute kidney injury secondary to ATN secondary to septic shock and vancomycin toxicity. Oliguric. Started on hemodialysis October 02, 2024 via femoral catheter. Now has permacath. 2. Septic shock secondary to pneumonia and fungemia. Off vasopressors. 3. Acute blood loss anemia status post blood transfusions this admission. On Aranesp. 4. Volume overload. Better with UF. 5. Chronic hypoxic and hypercapnic respiratory failure, home ventilator dependent. 6. History of cardiac arrest. 8. Status post right BKA. Plan: Hemodialysis tomorrow. Receiving TPN. Potassium being replaced. Awaits discharge pending insurance approval.
--- NOTE | 2024-10-15 11:20 | P.PN ---
Subjective Progress Note Date: 10/15/24 Principal diagnosis: Pneumonia. This is a 49-year-old white male familiar to my service, history of paraplegia, home vent dependent, history of tracheostomy, patient had multiple admissions to the ICU for recurrent episodes of pneumonia and respiratory failure requiring ventilatory support. On his last admission patient was eventually discharged home on a home ventilator, and this was back on 08/04/2024. Patient was discharged home with a PICC line, patient was in the ER yesterday on 08/28 for abnormal labs mostly low potassium and low sodium discharged home however he cam e back today complaining of shortness of breath, has been ventilator dependent all along. Chest x-ray showed basically bibasilar opacities/atelectasis, doubt pneumonia, the findings in the left lower lobe are chronic. Patient did have previous history of pneumonia involving the left lower lobe and he had multiple bronchoscopies in the past. Bronchial cultures and sputum cultures have been positive in the past for mostly Pseudomonas aeruginosa. Patient was seen in the ER today, and he is already on cefepime for empiric coverage for potential left lower lobe pneumonia, patient had abnormal electrolytes with relatively low sodium low potassium, no leukocytosis, normal renal profile, blood pressure was soft, and he was given fluid boluses. Lactic acid was 2.1, D-dimer is normal, patient was admitted, and this consult was initiated. 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 Patient was seen today on 08/30/2024, patient continues to have intermittent episodes of fever with Tmax of 102, patient required norepinephrine and he remains on norepinephrine at 0.04 mcg/kg/min remains on LR at 130 cc/h remains on his home ventilator at tidal volume of 450 rate of 20 FiO2 45% and PEEP of 5. Seems comfortable, not in distress, his WBC is 3.5 hemoglobin 10.0 electrolytes are normal renal profile is normal potassium is borderline low. Patient remains on cefepime, vancomycin was added because of his previous history of MRSA, and is on cefepime for previous history of pseudomonal infection and now that the patient may be septic it is more of a reason to broaden the spectrum of antibiotics coverage with cefepime and vancomycin. Sputum cultures and blood cultures are pending. Patient does have history of pseudomonal and history of MRSA infections, and I discontinued his Zithromax today replace Zithromax with vancomycin. Viral screen is negative Legionella antigen is negative. Chest x- ray is relatively unchanged continues to show bibasilar opacities atelectasis/pneumonia. Progress note dated August 31, 2024. The patient is seen today in room 252. The patient was admitted a couple days ago, to the intensive care unit. The patient is currently on mechanical ventilator, actually his home ventilator. He is on volume assist-control, rate 20, tidal volume 450, FiO2 45% PEEP of 5. The patient is getting lactated Ringer's at 130 cc an hour, TPN at 91 cc an hour, norepinephrine at 8 mcg/min. Doppler of the left upper extremity was negative. He continues on Zerbaxa, and vancomycin. We will check a procalcitonin level. Cultures thus far are negative. He does have a previous history of methicillin-resistant Staph aureus infection, and pseudomonal infections. White count was 2.21, hemoglobin 9.3, hematocrit 32, platelet count 1 61,000. D-dimer was 5.78. Sodium 132, potassium 4.3, chlorides 106, CO2 21, BUN 18, creatinine 0.28. Glucose was 141. Calcium 7.8. C. difficile study was negative. Urine Legionella antigen was negative. Microbiologic studies are currently negative. Chest x-ray shows bibasilar airspace opacities, possibly consistent with pneumonia. 09/01/24 - The patient is seen today in room 252. Admitted to the hospital and the intensive care unit on 08/29/2024. The patient is currently on mechanical ventilator, his one from home. He is on volume assist control, rate of 20, tidal volume of 450, FiO2 45% and PEEP of 5. He currently has LR running at 50 cc/h, TPN at 91 cc/h, Zerbaxa and tobramycin. Chest Xray done this morning showed stable airspace opacities. Cultures are positive for pseudomonas aeruginosa, awaiting sensitivities. WBCs 2.69, Hgb 8.9, Hct 31.5, PLT 153, Na 135, K 3.4, Cl 109, HCO3 19, BUN 22, Cr 0.34, Phos 2.4. 09/02/24 - He is seen today in room 252. Admitted to the hospital and ICU on 08/29/24. He continues on mechanical ventilator, his one from home. He remaines on volume assist control, rate of 20, tidal volume of 450, FiO2 45% and PEEP of 5. He continues to have LR running at 50 cc/h, TPN at 91 cc/h, norepinephrine at 0.13 mcg/kg/min, Zebraxa and Tobramycin. Chest XRay this morning showed stable airspace opacities. Continue to await sensitivity of pseudomonas sputum culture. Lab work shows WBCs 3.64, Hgb 9.7, Hct 33.5, PLT 130, Na 133, K 3.9, bicarb 21, BUN 23, Cr 0.36, Ca 7.8, Mg 2.4, Albumin 2.3. 09/03/24 - He is seen in room 252. Admitted to the hospital and ICU on 08/29/24. He continues on mechanical ventilator, his one from home. He remaines on volume assist control, rate of 20, tidal volume of 450, FiO2 45% and PEEP of 5. He continues to have LR running at 50 cc/h, TPN at 91 cc/h, norepinephrine at 0.24 mcg/kg/min, Avycaz and Tobramycin. Zebraxa was discontinued as there was no reported sensitivity to it. Lab work shows WBCs 9.40, Hgb 8.8, Hct 30.6, PLT 100, Na 130, K 3.6, bicarb 23, BUN 25, Cr 0.51, Ca 7.8, Ionized Ca 4.6, Phos 3.3, Mg 2.1, TSH 2.710 and random cortisol 13.1. 09/04/24 - He is seen in room 252. Admitted to the hospital and ICU on 08/29/24. He continues on mechanical ventilator, his one from home. He remaines on volume assist control, rate of 20, tidal volume of 450, FiO2 45% and PEEP of 5. He continues to have LR running at 50 cc/h, TPN at 91 cc/h, norepinephrine at 0.24 mcg/kg/min, Avycaz and Tobramycin. Lab work shows sodium 133, potassium 3.5, bicarb 24, BUN 27, creatinine 0.47, calcium 7.9, ionized calcium 4.6, magnesium 1.9, phosphorus 3.0, total bilirubin 1.7, AST 57, ALT 45, alkaline phosphatase 99. Progress note dated September 05, 2024. 49-year-old male well-known to our service. He is seen today in room 252. He continues on volume assist-control, rate 20, tidal 450, FiO2 45%, PEEP of 5. The patient has refused blood gases. Currently, he is getting TPN at 65 cc an hour, norepinephrine at 1 mcg/min, LR at 50 cc/h. Clinically, the patient is doing well. His chest x-ray remains about the same. Yesterday he was on a higher dose of norepinephrine, and also was on vasopressin. Both have been weaned off. Current labs include a sodium 136, potassium 4.1, chlorides 101, CO2 28, BUN 30, creatinine 0.37. Glucose 153. Albumin is 2.2. Previous sputum, from August 29 with positive for Pseudomonas aeruginosa. Chest x-ray is largely unchanged. Progress note dated September 06, 2024. 49-year-old male again seen today in the intensive care unit, room 252. He remains on mechanical ventilator, actually his home ventilator, with settings of volume assist-control, rate 20, tidal volume 450, FiO2 45%, PEEP of 5. No blood gases today. The patient has been refusing. He is getting lactated Ringer's at 50 cc an hour, TPN at 65 cc an hour. He continues on the same antibiotics. White count 5.21, hemoglobin 7.9, hematocrit 27.5, and platelet count 64,000. Sodium 141, potassium 3.5, chlorides 102, CO2 32, BUN 25, and creatinine 0.35. Glucose is 152. Calcium is 8. Albumin is 2.1. Chest x-ray is largely unchanged. Patient was seen today on 09/16/2024, patient is basically about the same. Hardly any improvement noted in the last few weeks since admission, patient remains intubated, mechanically ventilated, same ventilator settings, assist-control rate of 20 tidal volume 450 FiO2 60% and PEEP of 8 ABG was not done today, no easy access, attempted to place arterial lines in this patient, but could not pass a wire although the arteries including femoral artery and left brachial artery were easily cannulated. No further attempts made for arterial access. Patient remains on norepinephrine at 0.13 mcg/kg/min still on TPN at 75 cc/h still on Zerbaxa and vancomycin chest x-ray showed worsening today of bilateral infiltrates possibly some component of fluid overload and I recommended Lasix 20 mg IV push twice daily. Patient seems to be quite swollen and edematous. WBC count is 5.4 hemoglobin 7.6 electrolytes showed sodium of 146 potassium 4.1 BUN 20 creatinine 0.47 Patient was seen today on 09/17/2024, patient seems to be deteriorating steadily over the last 24 hours, he is developing profound hypotension requiring pressors in the form of Levophed at 0.4 mcg/kg/min he is also on vasopressin at 0.04 units/min he is on TPN at 75 cc/h hemoglobin is noted to be low at 6.9, patient has positive yeast in the blood/fungemia he is on fluconazole, this is being addressed by infectious disease on the case. Earlier ABG showed a pO2 of 77 pCO2 88 pH of 7.13, Vent settings were adjusted with increasing the rate to 36. He is now on tidal volume of 350 FiO2 100% PEEP is 10 and rate is 36. Another ABG is pending. But clearly patient is taking a downhill clinical course. Patient is quite septic, I will likely change his central line, and place a new central line in this patient today and remove the old central line/PICC line. Patient will receive a unit of packed RBCs for hemoglobin of 6.9. Considering the change in his overall clinical status, discussed his condition with son, would like to keep his dad as a full code, he is very well aware of the poor prognostic picture and how ill his dad is. Would like to keep him a full code. WBC count today is 20.03 hemoglobin 8.5, basic metabolic profile is normal BUN is 25 creatinine 0.4 total protein is 6.9 albumin is 1.9. Patient was seen today on 09/18/24, remains in the ICU, intubated and mechanically ventilated. Patient is still requiring assist-control rate of maximal ventilatory support with rate of 36 tidal volume increased today up to 400 FiO2 decreased from 100% to 70% PEEP remains at 12. Earlier ABG before changes were made at the FiO2 had been on tidal volume showed a pO2 of 77 pCO2 68 pH of 7.20. Patient is still requiring norepinephrine and I have been titrating the norepinephrine earlier this morning he is down to 0.18 from 0.46 yesterday micrograms per kilo per minute vasopressin is still at 0.04 units/min patient is on propofol at 50 mcg/kg/min Lasix drip at 20 mg/h and TPN at 75 cc/h. I am also treating the patient with vancomycin, Zerbaxa, and Eraxis was added to replace fluconazole yesterday by infectious disease specially with his positive blood cultures for Bella. Urine output is improving with the Lasix drip, he did not improve much with 1 dose of Lasix 60 mg IV push. Remains on Solu-Cortef at 100 mg IV push every 8 hours patient is in positive fluid balance about 6 L hence I decided to go with Lasix drip today. Labs today showed slight improvement in his WBC count down to 14.9 hemoglobin is 7.6, electrolytes are abnormal with a potassium of 6.1 BUN is 45 creatinine 0.82 chest x-ray continues show bilateral interstitial edema/infiltrates, could be cardiogenic or noncardiogenic pulmonary edema I believe it is mostly cardiogenic/related to fluid overload as he received significant fluids yesterday for low blood pressure. And he was not making much urine in the last 24 hours. Hence Lasix drip was started today. Patient was seen today on 09/19/2024, remains in the ICU, remains intubated and mechanically ventilated. Patient is on assist-control rate of 36 tidal volume 400 FiO2 65% and PEEP of 12. His ABG showed a pO2 of 142 pCO2 52 pH of 7.28, hence cut down his FiO2 down to 50%. The PEEP at 12. Patient remains hemodyn amically unstable, remains on norepinephrine at 0.08 mcg/kg/min, his vasopressin has been discontinued. TPN is at 75 cc/h. Remains on Lasix drip/infusion at 20 mg/h. He is on propofol at 50 mcg/kg/min remains on Solu-Cortef 50 mg every 8, Eraxis, Zerbaxa, vancomycin. Urine output is marginal at about 10 to 20 cc/h in spite of Lasix drip. Lovenox will be resumed today at 80 mg subcu twice daily. Patient is sedated, his overall clinical status is showing slight improvement compared to the clinical status couple of days ago. Chest x-ray continues to show evidence of interstitial edema although the possibility of ARDS is not entirely ruled out considering his overall septic picture. CBC is about the same with WBC of 7.7 hemoglobin 7.1. Platelets are 128,000. Basic metabolic profile is normal potassium is down to 5.2 BUN is 67 creatinine is slightly higher today 1.13. Blood sugar is 358. Patient was seen today on 09/20/2024, remains in the ICU intubated mechanically ventilated. On assist-control rate of 36 tidal volume 400 FiO2 50% PEEP of 12, no ABG done today, however his O2 saturation is in the high 90s about 98%. Patient had a low hemoglobin today and he will need a unit of blood/packed RBCs for low hemoglobin. No active bleeding noted, Hemoccult stools will be done t lizette. Patient remains on Eraxis and Zerbaxa, his vancomycin was discontinued remains on lower dose of Solu-Cortef 50 mg IV push every 12 hours. Continues to have poor urine output and his renal functioning is getting a bit worse. Nephrology was consulted, patient received initially significant amount of fluids for his presentation of sepsis, and he remained oliguric in spite of fluid boluses. Then he was placed on Lasix drip which initially was working fine, now that urine output is rather marginal and spite of Lasix drip at 20 mg an hour. I am recommending a trial of albumin followed by 80 mg of Lasix IV push. And hopefully his urine output will pharmacy picking tech with the albumin and with the blood transfusion which is scheduled to be done soon. Vancomycin has been discontinued. Chest x-ray continues to show evidence of interstitial edema. Labs are reviewed his potassium is 5 bicarb is 20 BUN is 83 creatinine 1.49 platelets are 105 hemoglobin 6.3. Progress note dated September 21, 2024. The patient remains on volume assist-control, rate 36, tidal volume 400, FiO2 50%, PEEP of 12. Blood gases were not obtained. He continues on TPN at 75 cc an hour, propofol at 50 mcg/kg/min, saline at 10 cc an hour, and norepinephrine is currently on hold. Antibiotic douglas, he continues on vancomycin, and Eraxis. White count is 6.9, hemoglobin 7.6, hematocrit 24.3, and platelet count 115,000. Sodium 137, potassium 5.1, chlorides 103, CO2 18, anion gap 16, BUN 99, creatinine 1.58. Glucose is 228. Calcium 8.1, phosphorus 5.4, magnesium 2.5. Culture data shows evidence of Pseudomonas aeruginosa back on August 29, Pseudomonas in the bronchial washings on September 07, and blood cultures positive, September 18, currently pending. Chest x-ray is largely unchanged, shows patchy diffuse airspace opacities, with a small right-sided pleural effusion. Progress note dated September 22, 2024. The patient is seen today in room 252. He remains on volume assist-control. Settings include volume assist-control 36, tidal volume 400, FiO2 50%, PEEP of 12. He is getting propofol at 50 mcg/kg/min, norepinephrine at 3 mcg/min, and TPN at 75 cc an hour. He is having hemodialysis today. The goal is removal of 1 to 2 L of fluid. He continues on Eraxis. We were able to place a right radial arterial line. We will repeat a blood gas, after hemodialysis. Current laboratory data includes a white count 7.4, hemoglobin 7.3, hematocrit 23.4, and a platelet count of 114,000. Sodium 134, potassium 5.4, chlorides 104, CO2 15, anion gap 15, BUN 110, creatinine 1.79. Glucose is 153. Calcium is 8.3. Previous blood in sputum sampling, showed evidence of Pseudomonas aeruginosa. The patient also has previous blood culture showing evidence of Bella species. Chest x-ray today is largely unchanged. Progress note dated September 23, 2024. 49-year-old male seen today in room 252. He remains on mechanical ventilation. He is on volume assist-control, rate 36, tidal volume 400, FiO2 40%, PEEP of 12. Blood gases show pO2 100, pCO2 44, pH is 7.30. Patient continues on norepinephrine at 5.6 mcg/min, propofol at 50 mcg/kg/min, TPN at 33 cc an hour. He is getting saline at 10 cc an hour. He had hemodialysis yesterday, September 22, and 1 L of fluid was removed. He continues on Eraxis, as per infectious diseases. White count is 9.0, hemoglobin 7.7, hematocrit 24, and platelet count is 155,000. Sodium 132, potassium 4.5, chlorides 96, CO2 20, anion gap 16, BUN 80, and creatinine 1.69. Glucose is 145. Calcium 8.5. Most recent blood cultures, on September 18, were positive for Bella. Today's chest x-ray is largely unchanged. Progress note dated September 24, 2024. 49-year-old male seen today in room 252. The patient continues on life support, IV volume assist-control, rate 36, tidal volume 400, FiO2 40%, PEEP of 12. Blood gases show pO2 100, pCO2 42, pH is 7.39. The patient is getting propofol at 15 mcg/kg/min, norepinephrine at 4 mcg/min, TPN at 33 cc an hour, and saline at 10 cc an hour. The patient's hemoglobin is 7. He continues on Eraxis. The patient static lung compliance is 23.5 mL/cm water. He has very stiff lungs. White count is 6.7, hemoglobin 7, hematocrit 22.4, platelet count 158,000. Sodium 130, potassium 4, chlorides 95, CO2 22, anion gap 13, BUN 58, creatinine 1.52. Glucose is 114. Calcium 8.3. Magnesium 1.7. No recent new culture data. Chest x-ray is about the same as it was a day before. It shows right basilar airspace opacities, with a small right-sided pleural effusion. There was some interstitial prominence. Progress note dated September 25, 2024. 49-year-old male seen today in room 252. He remains on volume assist-control, rate 36, tidal volume 400, FiO2 30%, and PEEP of 12, to be dropped to a PEEP of 8. Blood gases show pO2 of 82, pCO2 36, pH of 7.49. The patient is on TPN at 33 cc an hour, propofol at 30 mcg/kg/min, and norepinephrine at about 3 mcg/min. He is having hemodialysis today. Goal is to remove 2 to 3 L if tolerated. The patient continues on Eraxis. White count 7.5, hemoglobin 7.6, hematocrit 23.9, and platelet count of 194,000. Sodium 129, potassium 3.5, chloride 94, CO2 24, anion gap normal, BUN 35, creatinine 1.06. Glucose is 115. Albumin is 2.5. Recent blood cultures are positive for Bella. Chest x-ray is largely u nchanged. There is right basilar airspace disease, with a small right-sided pleural effusion. Progress note dated September 26, 2024. 49-year-old male seen today in room 252. He remains on volume assist-control, rate 36, tidal volume 400, FiO2 30%, PEEP of 8. Blood gases show pO2 of 73, a PCO2 of 34, and a pH of 7.54. He continues on propofol at 20 mcg/kg/min, norepinephrine at approximately 2 mcg/min, TPN at 33 cc an hour. The patient does continue on Eraxis, for fungemia. Current labs showed a white count of 7.32, hemoglobin 7.5, hematocrit 23.7, and a normal platelet count. Sodium 132, potassium 3.4, chloride 79, CO2 25, anion gap 8, BUN 22, and creatinine 0.87. Chest x-ray shows bilateral infiltrates, consistent with either pneumonia, or fluid overload. The chest x-ray is largely unchanged from the prior x-ray. Progress note dated September 27, 2024. 49-year-old male again seen in room 252. He remains on mechanical ventilation. He is on volume assist-control, rate 36, tidal volume 400, FiO2 30%, PEEP of 8. Blood gases show PO279, PCO2 of 34, pH is 7.54. The patient continues on propofol at 20 mcg/kg/min, norepinephrine at 2 mcg/min, TPN at 33 cc an hour. He had hemodialysis yesterday, 3 L was removed. He continues on Eraxis. In that regard, I did ask the nurse to call the infectious disease doctor, to get a stop date on this medication. White count 6.9, hemoglobin 7.8, hematocrit 24.8, platelet count 224,000. Sodium 131, potassium 3.4, chloride 97, CO2 26, anion gap 8, BUN 19, and creatinine 0.87. Calcium is 8.1. Chest x-ray, in my opinion, is improved. Patient was seen today on 10/09/2024, remains in the ICU, intubated mechanically ventilated, awake, off propofol, not requiring any pressors at this point, patient remains on assist-control rate of 24 tidal volume 400 FiO2 30% and PEEP of 5 patient is receiving hemodialysis during my evaluation. Remains on TPN at 85 cc/h. Chest x-ray is showing improvement in his bilateral airspace disease. Patient remains on Solu-Cortef, and I changed that to oral 25 mg p.o. twice daily. Labs today showed WBC count of 6.2 hemoglobin 8.7 electrolytes are normal BUN is 79 creatinine 2.02 Patient was seen today on 10/10/2024, remains in the ICU intubated mechanically ventilated, on assist-control rate of 24 tidal volume 400 FiO2 30% PEEP of 5 no ABG has been done today. Patient remains on TPN at 85 cc/h. Patient remains on hemodialysis Saturday and Saturday patient had a swallow evaluation and recommendation was chopped diet. We have placed the patient yesterday on Cortef orally. Remains on heparin subcu. He is hemodynamically stable, not requiring any pressors. Chest x-ray. Continues to show stable chest. Small pleural effusions noted. WBC count is 5.8 hemoglobin 8.2 electrolytes showed low sodium 129 potassium 3.5 BUN 55 creatinine 1.59 Patient was seen today on 10/11/2024, patient remains in the ICU intubated mechanically ventilated, on assist-control rate 24 with tidal volume 400 FiO2 30% PEEP of 5 patient is resting, he is not in any distress he is not requiring any pressors TPN is at 85 cc/h. CBC is basically unremarkable hemoglobin is 8.9 electrolytes are normal BUN is 84 creatinine 2.44. Clinically I believe this is the best I have seen this patient since his last admission. Chest x-ray showed minimal basilar atelectasis especially at the left base. This is relatively chronic. Progress note dated October 12, 2024. 49-year-old male who is now been in the hospital for 49 days. The patient was last seen by me on September 27. Currently, he remains on mechanical ventilation. He is on volume assist-control, rate 24, tidal volume 400, FiO2 30%, PEEP of 5. The patient is not receiving any IV fluids, or antibiotics. The patient is scheduled to have hemodialysis today. He is getting TPN at 85 cc an hour. His last hemodialysis session was last Saturday, and 3 L was removed. He is stable on the ventilator. His peak airway pressure is 27 cm of water. His plateau pressure of 17 cm of water. Current labs with a white count of 4.55, hemoglobin 8.1, hematocrit 25.1, platelet count 141,000. Sodium 136, potassium 5.1, chlorides 101, CO2 23, BUN 108, and creatinine 2.81. Anion gap is 12. Glucose is 155. Chest x-ray is largely unchanged. According to the nurses, the patient had an uneventful night. Progress note dated October 13, 2024. 49-year-old male, seen today in room 252. He is now been in the hospital for 50 days. The patient is doing about the same. He had an uneventful night according to the nurses. He remains on mechanical ventilation. Vent settings include volume assist-control, rate 24, tidal volume 400, FiO2 30%, PEEP of 5. There were no blood gases done. He does not have an arterial line. Also, he refused a chest x-ray today. The patient is currently on TPN at 85 cc an hour. Current labs good a white count of 4.5, hemoglobin 8.1, hematocrit 26.9, platelet count 243,000. Sodium 135, potassium 3.5, chlorides 100, CO2 24, anion gap 11, BUN 63, creatinine 1.94. Glucose is 137. Progress note dated October 14, 2024. 49-year-old male, with ventilator dependent respiratory failure. The patient is seen in room 252. The patient has not been here for 46 days. The patient remains on the same ventilator settings. That includes a volume assist-control mode, rate 24, tidal volume 400, FiO2 30%, PEEP of 5. No gases were done. There is no art line in this patient. He had an uneventful night according to the nurses. The discharge planners are still trying to find a place for him to be discharged to. Currently, he is getting TPN at 85 cc an hour. He is having hemodialysis today. The plan is to remove 2.5 L. His chest x-ray looks a bit better. White count 3.9, hemoglobin 8.7, hematocrit 28.6, and a normal platelet count. Sodium 137, potassium 4.2, chlorides 102, CO2 23, anion gap 12, BUN 86, and creatinine 2.64. Glucose 126. Calcium 9.9. Magnesium 2.1. Chest x-ray is slightly better, to unchanged. Progress note dated October 15, 2024. 49-year-old male who was seen today in room 252. He is now been in the hospital for 47 days. He continues on volume assist-control, rate 24, tidal volume 400, FiO2 30%, PEEP of 5. The patient is receiving TPN at 85 cc an hour. He continues on Cortef, 10 in the morning 5 in the evening. This is for adrenal insufficiency. No blood gases were done. His chest x-ray is improved. He is currently not on any antibiotics. He did have hemodialysis yesterday, October 14, with removal of 2.2 L of fluid. White count 4.2, hemoglobin 7.5, hematocrit 24.9, platelet count 265,000. Sodium 134, potassium 3.5, chlorides 99, CO2 28, BUN 50, creatinine 1.98. Glucose 154. Phosphorus 1.7. Albumin 2.5. Chest x- ray is largely unchanged, and improved in my opinion. Objective - Vital Signs Vital signs: Vital Signs Temp 98.9 F 10/15/24 08:00 Pulse 105 H 10/15/24 10:00 Resp 15 10/15/24 10:00 BP 129/52 10/15/24 10:00 Pulse Ox 98 10/15/24 10:00 FiO2 30 10/15/24 10:00 Intake & Output 10/14/24 10/15/24 10/15/24 18:59 06:59 18:59 Intake Total 3970.917 1124 990 Output Total 6230 95 1175 Balance -2259.083 1029 -185 Weight 87.6 kg 87.6 kg Intake: IV 550 Magnesium Sulfate-D5w Pmx 100 1 gm In Dextrose/Water 1 100ml.bag @ 100 mls/hr IVPB ONCE ONE Rx#: [id number] Potassium Chloride 20 meq 200 In Water For Injection 1 100ml.bag @ 50 mls/hr IVPB Q2H [facility] Rx#: [id number] Sodium Phosphate 30 mmol 250 In Dextrose 5% in Water 250 ml @ 65 mls/hr IVPB ONCE ONE Rx#:[id number] Intake, IV Titration 0 Amount Mvi, Adult No.4 with Vit 1084 K 10 ml Trace (Conc-1Ml/ Dose) 1 ml Sodium Acetate 64 meq Sodium Chloride 4Meq/ml Vial 120 meq Potassium Chloride 10 meq Calcium Gluconate 0.5 gm Magnesium Sulfate gm 0.5 gm In Amino Acids 5 %/ Dextrose 20 % 1,000 ml @ 85 mls/hr IV .BY DURATION [facility] Rx#:[id number] Sodium Acetate 64 meq 927.917 0 Sodium Chloride 4Meq/ml Vial 120 meq Potassium Chloride 10 meq Calcium Gluconate 0.5 gm Magnesium Sulfate gm 0.5 gm In Amino Acids 5 %/ Dextrose 20 % 1,000 ml @ 85 mls/hr IV .BY DURATION [facility] Rx#:[id number] Oral 100 TPN/PPN 1020 935 340 Mvi, Adult No.4 with Vit 1020 935 340 K 10 ml Trace (Conc-1Ml/ Dose) 1 ml Sodium Acetate 64 meq Sodium Chloride 4Meq/ml Vial 120 meq Potassium Chloride 10 meq Calcium Gluconate 0.5 gm Magnesium Sulfate gm 0.5 gm In Amino Acids 5 %/ Dextrose 20 % 1,000 ml @ 85 mls/hr IV .BY DURATION [facility] Rx#:[id number] Lipid 189 189 Fat Emulsion 20% 250 ml 189 189 In Empty Bag 1 bag @ 21 mls/hr IV Q72H [facility] Rx#: [id number] Hemodialysis 750 Output: Urine 80 95 25 Stool 900 1150 Hemodialysis 3000 Hemodialysis Net Amount 2250 Other: Voiding Method Indwelling Catheter Indwelling Catheter Indwelling Catheter ABP, PAP, CO, CI - Last Documented Arterial Blood Pressure - Exam No acute distress, currently connected to the ventilator. He has a tracheostomy tube in place. HEENT examination is grossly unremarkable. Mucous membranes are moist. No oral lesions. Neck supple. Full range of motion. No adenopathy thyromegaly or neck vein distention. Cardiovascular examination reveals regular rhythm rate. S1-S2 normal. No S3 or S4. No discernible murmur noted. Lungs reveal scattered rhonchi and crackles. No wheezes. Breath sounds equal bilaterally. Abdomen reveals an enterocutaneous fistula, normal bowel sounds. No tenderness. No masses. Extremities are intact. No cyanosis clubbing or edema. Right below the knee amputation. Has a right radial arterial line. Skin is without rash or lesion. Neurologic examination is brief but nonfocal. He does have significant muscle atrophy, and contractures. He has a right below the knee amputation. - Labs CBC & Chem 7: 10/15/24 02:54 10/15/24 02:54 Labs: Abnormal Lab Results - Last 24 Hours (Table) 10/14/24 10/14/24 10/15/24 Range/Units 17:23 23:38 02:54 WBC (4.50-10.00) 10*3/uL RBC (4.40-5.60) 10*6/uL Hgb (13.0-17.0) g/dL Hct (39.6-50.0) % MCHC (32.0-37.0) g/dL Sodium 134 L (137-145) mmol/L BUN 50 H (9-20) mg/dL Creatinine 1.98 H (0.66-1.25) mg/dL Glucose 134 H (74-99) mg/dL POC Glucose (mg/dL) 160 H 154 H (70-110) mg/dL Phosphorus 1.7 L (2.5-4.5) mg/dL Total Bilirubin 2.0 H (0.2-1.3) mg/dL ALT 60 H (4-49) U/L Alkaline Phosphatase 269 H (38-126) U/L Albumin 2.5 L (3.5-5.0) g/dL 10/15/24 10/15/24 Range/Units 02:54 07:09 WBC 4.18 L (4.50-10.00) 10*3/uL RBC 2.74 L (4.40-5.60) 10*6/uL Hgb 7.5 L (13.0-17.0) g/dL Hct 24.9 L (39.6-50.0) % MCHC 30.1 L (32.0-37.0) g/dL Sodium (137-145) mmol/L BUN (9-20) mg/dL Creatinine (0.66-1.25) mg/dL Glucose (74-99) mg/dL POC Glucose (mg/dL) 154 H (70-110) mg/dL Phosphorus (2.5-4.5) mg/dL Total Bilirubin (0.2-1.3) mg/dL ALT (4-49) U/L Alkaline Phosphatase (38-126) U/L Albumin (3.5-5.0) g/dL Assessment and Plan Assessment: Ventilator dependent respiratory failure, with failure to wean. Septic shock, likely secondary to Pseudomonas pneumonia, resolved. Possible fungemia, completed Eraxis. Chronic hypoxemic and hypercapnic respiratory failure, ventilator dependent, on a home ventilator, S/P tracheostomy. Left lower lobe atelectasis, possible pneumonia, with pseudomonal infection. History of severe tracheal stenosis, S/P tracheostomy. History of recurrent pneumonia, involving the left lower lobe. Tracheobronchomalacia. History of DVT. History of CVA. History of right below-knee amputation. Previous history of asystole/cardiac arrest, 2021. History of Crohn's disease, S/P enterocutaneous fistula, diverting ileostomy. Plan: Plan dated August 31, 2024. The patient is seen today in room 252. The patient's weight had on fluids, and the lactated Ringer's is cut back to 40 cc an hour. The patient will get 1 dose of Lasix IV push. Ventilator settings are noted. No blood gases today. It was apparently refused by the patient. Doppler of the left upper extremity was negative for DVT. Will check a procalcitonin level. The patient continues on norepinephrine at 8 mcg/min. He is getting TPN at 91 cc an hour. We will continue to follow make recommendations along the way. Labs, x-rays, and all medications are reviewed. Prognosis is certainly guarded. Dictation was prod uced using [employer] (NIH) software. Please excuse any grammatical, word or spelling errors. Plan dated September 05, 2024. The patient is seen today in room 252. He is connected to his home mechanical ventilator. Settings of the same and include volume assist-control, rate 20, tidal volume 450, FiO2 45%, PEEP of 5. The patient is getting TPN at 65 cc an hour, norepinephrine has been weaned down to 1 mcg/min. He is getting lactated Ringer's at 50 cc an hour. He continues on Avycaz and tobramycin. We will continue to follow make recommendations. The patient also continues on hydrocortisone, for relative adrenal insufficiency. Prognosis is certainly guarded. We will continue to follow. Dictation was produced using [employer] (NIH) software. Please excuse any grammatical, word or spelling errors. Plan dated September 06, 2024. The patient is seen today in room 252. He continues on mechanical ventilation. The patient is having increased secretions. Will add a scopolamine patch. He continues on Avycaz, and tobramycin. In addition, he continues on TPN at 65 cc an hour, and lactated Ringer's at 50 cc an hour. All labs, x-rays, and medications are reviewed. Chest x-ray is unchanged. We will continue to follow make recommendations. Prognosis is guarded. Dictation was produced using [employer] (NIH) software. Please excuse any grammatical, word or spelling errors. Plan dated September 21, 2024. The patient is again seen today in room 252, with presumed ongoing sepsis. The patient has norepinephrine on standby, for blood pressure support, and recently was maxed out on multiple vasopressors. Currently, the patient continues on Eraxis, and vancomycin. The patient also continues on TPN at 75 cc an hour, propofol at 50 mcg/kg/min. All labs, x-rays, medications are reviewed. The patient's overall prognosis remains very poor. We will continue to follow. He remains a full code. Dictation was produced using [employer] (NIH) software. Please excuse any grammatical, word or spelling errors. Plan dated September 22, 2024. The patient was seen to get her up to 52. We were able to place a right radial art line in the patient. There was good blood return from the arterial line, although the waveform was dampened. The patient continues on appropriate medications, including propofol at 50 mcg/kg/min, norepinephrine at 3 mcg/min. The patient is also getting TPN at 75 cc an hour. He is receiving hemodialysis today. He continues on Eraxis. After hemodialysis, the patient will have a arterial blood gas. Additional recommendations and suggestions are forthcoming. Prognosis is guarded. All labs, x-rays, and medications are reviewed. We will continue to follow the patient, make recommendations. Dictation was produced using [employer] (NIH) software. Please excuse any grammatical, word or spelling errors. Plan dated September 23, 2024. The patient is again seen today in room 252. The patient's blood gases show pO2 100, pCO2 44, pH of 7.31. Patient continues on norepinephrine at 5.6 mcg/min, propofol at 50 mcg/kg/min. The patient is getting TPN at 33 cc an hour. The patient continues on Eraxis. He had hemodialysis yesterday. All labs, x-rays, and medications are reviewed. The patient remains a full code. Will continue to follow the patient, make recommendations along the way. Prognosis is guarded. Dictation was produced using [employer] (NIH) software. Please excuse any grammatical, word or spelling errors. Plan dated September 24, 2024. According to the nurses, the patient had an uneventful night. He continues on volume assist-control, with a rate of 36, tidal volume 400, FiO2 40%, PEEP of 12. Blood gases are adequate with a pO2 of 100, pCO2 of 42, pH of 7.39. The patient continues on sedation with propofol at 50 mcg/kg/min. For his lower blood pressure, he is on norepinephrine at 4 mcg/min. He continues on parenteral nutrition, with TPN at 33 cc an hour. He also continues on Eraxis for fungemia. Hemoglobin is 7. No transfusion at this time. All labs, x-rays, and medications are reviewed. We will continue to follow the patient, make recommendations. The patient's overall prognosis remains poor. Dictation was p roduced using [employer] (NIH) software. Please excuse any grammatical, word or spelling errors. Plan dated September 25, 2024. The patient is seen today in room 252. He continues on Eraxis. The patient continues on mechanical ventilation. Labs, x-rays, and medications are reviewed. We will continue to follow the patient, make recommendations. He is getting TPN at 33 cc an hour, and propofol at 30 mcg/kg/min. He continues on norepinephrine at about 3 mcg/min. He is having hemodialysis today. The goal is to remove somewhere between 2 to 3 L of fluid, pending his blood pressure response. The patient will be dropped from 12 cm of water down to 8 cm of water. Blood gases have been reviewed. All labs, x-rays, and medications have been reviewed. We will continue to follow. Prognosis is guarded. Dictation was produced using [employer] (NIH) software. Please excuse any grammatical, word or spelling errors. Plan dated September 26, 2024. The patient is seen today, in room 252. The patient remains on mechanical ventilation. Blood gases are reasonable. All labs, x-rays, and medications are reviewed. The patient continues on propofol at 20 mcg/kg/min, and norepinephrine at roughly 2 mcg/min. We will continue to follow make recommendations. He is being nursed with TPN at 33 cc an hour. 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 Prognosis is guarded. Dictation was produced using [employer] software. Please excuse any grammatical, word or spelling errors. Plan dated September 27, 2024. The patient was seen today in room 252. She remains on mechanical ventilation. Blood gases are reviewed. PO279, GFC298, pH of 7.54. Labs, x-rays, and all medications are reviewed. He continues on propofol at 20 mcg/kg/min, and a small dorsal norepinephrine at 2 mcg/min. Is getting TPN at 33 cc an hour. He continues on Eraxis. He had hemodialysis yesterday. 3 L was removed. All labs, x-rays, and medications are reviewed. We will continue to follow the patient, make recommendations. Dictation was produced using [employer] (NIH) software. Please excuse any grammatical, word or spelling errors. Plan dated October 12, 2024. The patient is again seen in the intensive care unit. He remains critically ill on mechanical ventilator. He remains on volume assist-control, rate 24, tidal volume 400, FiO2 30%, PEEP of 5. He is getting TPN at 85 cc an hour. He is currently not on any antibiotics, or antifungals. He is scheduled to have hemodialysis today. His last hemodialysis session was last Saturday, and 3 L was removed. Currently he is stable on the ventilator. His peak airway pressure is 27, with a plateau pressure of 17. Labs, x-rays, and all medications are reviewed. The patient is currently being evaluated for transfer to another facility, but that will not happen before October 16, when apparently new insurance kicks in. We will continue to follow make recommendations. Prognosis is poor. Dictation was produced using [employer] software. Please excuse any grammatical, word or spelling errors. Plan dated October 13, 2024. The patient is again seen today in room 252, in the intensive care unit. The patient remains on mechanical ventilation. He is on volume assist-control, rate 24, tidal volume 400, FiO2 30%, PEEP of 5. No blood gases today. The patient also refused a chest x-ray today. He is getting TPN at 85 cc an hour. No ad dition of fluids. He is not on any antibiotics. He has completed all of that. Labs, x-rays, and medications are all reviewed. We will continue to follow the patient, make recommendations were appropriate. The discharge planners are hoping to be able to get the patient discharged eventually, once his new insurance, becomes available. Prognosis is certainly guarded. We will continue to follow. Dictation was produced using [employer] (NIH) software. Please excuse any grammatical, word or spelling errors. Plan dated October 14, 2024. The patient is again seen today in room 252. The patient remains on the ventilator. He is ventilator dependent respiratory failure, and cannot wean. The patient is currently otherwise stable, and he had an uneventful night according to the nurses. The patient is on volume assist-control, rate 24, tidal volume 400, FiO2 30%, PEEP of 5. The patient is getting TPN at 85 cc an hour. Hemodialysis is planned to remove 2.5 L of fluid from the patient today. In my opinion, the patients chest x-ray, is slightly improved unchanged. We will continue to follow the patient, and make recommendations along the way. The patient's overall prognosis remains poor. The patient remains critically ill. Dictation was produced using [employer] (NIH) software. Please excuse any grammatical, word or spelling errors. Plan dated October 15, 2024. The patient appears to be doing reasonably well. He is seen today in room 252. He remains on mechanical ventilation. Vent settings are the same. No blood gases were done. Chest x-ray was done. In my opinion is stable, to improved. He continues on TPN at 85 cc an hour. He is getting Cortef 10 mg in the morning 5 mg in the evening. The patient did have hemodialysis yesterday, and 2.2 L of fluid was removed. We will continue to follow make recommendations. Hopeful for discharge soon. The patient has not been in the hospital for a number of days. We will continue to follow. Prognosis is guarded. Dictation was produced using [employer] (NIH) software. Please excuse any grammatical, word or spelling errors. Time with Patient: Greater than 30
[2024-10-15 12:13] LABS: Glucose,Whole Blood 165 mg/dL (70-110)
[2024-10-15 16:52] LABS: Glucose,Whole Blood 131 mg/dL (70-110)
--- NOTE | 2024-10-15 21:46 | P.PN ---
Subjective Progress Note Date: 10/15/24 Chief Complaint: Short of breath 49-year-old patient, follows with Dr. Murcia History of paraplegia, home vent at night, tracheostomy multiple admissions to the ICU for recurrent pneumonia. Patient's previous bronchial cultures been positive for Pseudomonas. He was discharged recently on IV cefepime. Also has a history of Crohn's disease with previous colectomy diverting ileostomy. History of DVT for which patient is on subcu Lovenox. Also had drug-resistant MRSA Pseudomonas. Patient currently does not have areas significant trach secretions. He has continues TPN. Has a right BKA. He does have slight movement in the right hand. Able to follow commands by nodding his head. Answering questions. He is scared by his elder son open. I was also the DPOA. August 30: Overnight patient started having more secretions through the tracheostomy. Vancomycin was added. Also blood pressure running low patient was put on Levophed drip. Otherwise sinus rhythm. Patient remains on the ventilator. Will also send off stool for C. difficile. Also patient IV cefepime. Getting TPN. August 31: ICU. Patient had positive fluid balance. Was given IV Lasix earlier. Remains on Levophed. Spiking fevers. Getting TPN. Stool negative for C. difficile. Patient is growing MDRO Pseudomonas aeruginosa. ID is ordered IV Zerbaxa. Which is currently not available. Patient's friend is visiting him in the ICU. Light trach secretion September 01: ICU. On the ventilator. FiO2 45%. PEEP of 5. Continues to have light trach secretions. Sputum cultures again growing Pseudomonas. Zerbaxa was obtained and resumed. Blood pressure running low. On Levophed. Patient's younger son at the bedside. Colostomy working fine. Has been spiking fevers. Cooling blanket. Ice packs. September 02: ICU. Ventilator FiO2 45%. PEEP of 5. Continues to have some trach secretions. IV Zerbaxa IV tobramycin. TPN lipids to continue. Also Levophed. Patient started cooling blankets since yesterday for temperatures. Along with the nurse speech therapy records were reviewed from last few admissions. Patient with multiple MBS and bedside swallow eval. No trouble with swallowing. Patient put on a chopped diet. Thin liquids. Patient did spike a fever of 101.7 earlier today. Low ionized calcium. IV gluconate given. September 03: ICU. On ventilator FiO2 45%. PEEP of 5. Mild trach secretions. Getting IV TPN lipids. IV tobramycin. Zerbaxa was substituted to Avycaz. By ID. No fever per se since yesterday. For blood pressure patient is also on Levophed and vasopressin. September 04: ICU. On ventilator FiO2 45%. PEEP of 5. Clear trach secretions. Getting IV TPN lipids. IV tobramycin. And IV Avycaz. Remains afebrile.. On Levophed and vasopressin. Awake. 09/06/2024 Patient is seen and evaluated in ICU; remains on mechanical ventilator, actually his home ventilator, with settings of volume assist-control, rate 20, tidal volume 450, FiO2 45%, PEEP of 5. - patient has been refusing blood; no ABGs to. He is getting lactated Ringer's at 50 cc an hour, TPN at 65 cc an hour. - patient remains on the same antibiotics. - Labs reviewed which reveal white count 5.21, hemoglobin 7.9, hematocrit 27.5, and platelet count 64,000. Sodium 141, potassium 3.5, chlorides 102, CO2 32, BUN 25, and creatinine 0.35. Glucose is 152. Calcium is 8. Albumin is 2.1. -Chest x-ray is largely unchanged. Critical care managing mechanical ventilation; recommending to add scopolamine patch for increased secretion -Patient remains on Avycaz and tobramycin - Continue with current TPN 09/07 Patient remains in the ICU lethargic. He is s/p tracheostomy Overnight he was more hypoxic they have to increase PEEP to 8. Also has a lot of secretions when needed for secretions suctioning to try to become apneic per Staff. Patient currently receiving Avycaz and tobramycin. on TPN also 09/08 Patient remains in the ICU awake and alert status post tracheostomy. He has contractures of both upper and lower extremities He is complaining from pain in his lungs. He is status post flexible bronchoscopy and bronchoalveolar lavage yesterday. He has previous sputum culture positive for Pseudomonas currently covered with ceftazidime and tobramycin. He is also on Lovenox 90 mg 09/09 Patient still in the ICU on mechanical ventilation via tracheostomy. PEEP is 8.0 as is yesterday Also he spiked little fever to 100.7. IV vancomycin is added to tobramycin and ceftazidime He is getting also bronchoscopy follow-up culture results 09/10 Patient feels clinically the same, he still getting breathing via mechanical ventilation through his tracheostomy with PEEP of 8. Patient feels he is required suctioning through his tracheostomy tube. He denies chest pain or pain anywhere else he can communicate by head signs and gestures. Hemodynamically stable and afebrile hemoglobin 7.4 platelet count 73 Glucose is controlled potassium 3.3 He remains on broad-spectrum antibiotic Rocephin at this time tobramycin and IV vancomycin added yesterday because he had low-grade fever. He is getting TPN. IV fluid Ringer lactate was stopped and patient was started on IV Lasix 20 mg 3 times a day continue with therapeutic dose of Lovenox as well 09/11 Patient remains in the ICU Remains on mechanical ventilation via tracheostomy He status post bronchoalveolar lavage 2 days ago, culture is growing Pseudomonas aeruginosa and corynebacterium Patient remains on broad-spectrum antibiotics with IV vancomycin, tobramycin, ceftazidime On IV Lasix also is on therapeutic dose of Lovenox 90 mg twice daily No IV fluids 09/12 Patient remains in the ICU Clinically close to what he was over the last 2 days still getting oxygen via his tracheostomy He remains on broad-spectrum antibiotic with Ceftin this time and IV vancomycin. Also he is on IV Lasix 20 mg and therapeutic dose of Lovenox. 09/13 Patient remains in the ICU on mechanical ventilation via tracheostomy Patient looks better today, he breathing better Less secretion Fentanyl patch increased 09/14. Patient seen and examined. Patient continues to be on mechanical ventilation via trach mask. Currently on TPN. Currently on IV Zerbaxa and vancomycin 09/15. Patient seen and examined.Vital signs done showed the patient overnight, heart rate 106, blood pressure 107/40, currently on ventilation. Labs reviewed showed WBC 7.27, hemoglobin 7.5, sodium 148 on potassium 4.3, BUN 23, creatinine 0.47 09/16. Patient seen and examined labs reviewed showing WBC 5.45, hemoglobin 9.6, platelet count 131, sodium 146, potassium 4.1, BUN 20, creatinine 0.47. Continue small amount of Levophed. Currently on Zerbaxa and vancomycin. Currently on TPN September 17: ICU. Patient has taken a turn for the worse today. Significant thick white secretions from the trach. Sinus rhythm. Receiving TPN. Patient is on Levophed and vasopressor. Rather high dose. FiO2 [address] of 10. [address] Ho earlier spoke to the patient/family. Remains full code September 18: ICU. Intubated FiO2 70 PEEP of 12. Sinus rhythm. Drips include IV propofol at 50 and Levophed at 0.13. Patient is off vasopressin. Patient secretions. Family at the bedside. September 19: ICU. Intubated. FiO2 50 and a PEEP of 12. Drips include IV Levophed and propofol. Also started on Lasix drip 10 mg an hour yesterday. Secretions present. September 20: ICU. Intubated. FiO2 50 and a PEEP of 12. Hemoglobin 6.3. Secondary to blood being given. Patient been on and off Levophed. On propofol. Lipids have been held. Continues with TPN. Lasix drip was discontinued. Lovenox has been held because of low hemoglobin. Unable anemia is felt to be combination of regular blood draws and possible element element of hemolysis from all the infection. No dark stool. Family at the bedside September 21: ICU. Intubated. Received 2 units of blood yesterday. Hemoglobin 7.6 today. Per nephrology renal replacement therapy. Dialysis access placed by Dr. Cadena. Patient earlier today on Levophed. Propofol. Getting TPN. Sinus rhythm. Urine output decreased September 22: ICU. Intubated. FiO2 15 of PEEP of 12. Seen earlier today. Dialysis being started. Been on IV Levophed propofol. Sinus rhythm. TPN. Sinus rhythm. September 23: ICU. Intubated. Due for another dialysis today. Saw the patient earlier today. Remains on IV Levophed propofol. Sinus rhythm. TPN. On fentanyl patch. September 24: ICU. Intubated. FiO2 40 and PEEP of 12. Remains on IV Levophed and propofol. IV TPN. Decrease trach secretions. IV antibiotics. Was due for dialysis earlier today. September 25: ICU. Intubated. FiO2 30%. Patient getting IV Levophed and propofol. IV TPN. Dialysis today. Receiving IV antibiotics. Does opens eyes occasionally. Some commands per nursing. September 26: ICU. Intubated. FiO2 30 and a PEEP of 8. Had 2 L hemodialysis removed yesterday. Getting hemodialysis today. Aiming for 2 to 3 L. Patient is on propofol. Currently Levophed on hold. Getting TPN. Patient is actually awake and following commands. Sinus rhythm. September 27: ICU. Intubated. FiO2 39 PEEP of 8. No dialysis today. Remains on IV Levophed propofol. TPN. There is a bedside. Patient asked me how is he doing. Had a lengthy information in terms of his guarded prognosis. Did tell him it is his choice about how he wishes to proceed. He needs to decide between treatment benefits versus in the suffering because of that entails from treatment and his recurrent infections etc. Especially in the context of decreased activity. Kidney failure, respiratory failure etc. September 28: ICU. Intubated. FiO2 30 and a PEEP of 8. For dialysis today. Off Levophed this morning. IV propofol. TPN. Some clear light to trach secret ions. Colostomy working. Poor urine output. September 29: ICU. Intubated. IV propofol Levophed. TPN. Awake. Discussed with Dr. Holt. Prognosis very poor. Probably treatment is the point of getting futile. Patient needs about 34 more days to go to long-term ventilator setting. September 30: ICU. Intubated. IV propofol. Currently off Levophed. TPN. Getting dialysis today. Awake. IV antifungal. Given a unit of blood for hemoglobin of 6.9 October 01: ICU. Intubated. IV propofol. Remains on Levophed. TPN dose adjusted. Dialysis. IV aniedulefungin. Eyes open. Vent. FiO2 30%. PEEP 5 September 18: ICU. Intubated. IV propofol. Off Levophed. TPN. Dialysis today. IV aniedulefungin last day on October 06. Per ID. Some trach secretions clear October 03: ICU. Intubated. IV propofol. TPN. Dialysis schedule will now be Saturday. Next dialysis will be on coming Saturday. IV aniedulefungin last day-I October 06. Minimal urine output-5 to 10 cc an hour. Awake. October 04: ICU. Intubated. IV propofol. TPN. Next dialysis on Saturday. IV elevated Lida function. Urine output remains to be minimal. Awake. Mother at the bedside. Does not have any questions. Sinus rhythm. 10/05/2024 Patient seen in follow-up today remains in the ICU on mechanical ventilation FiO2 is 30%. Patient is requiring some small dose Levophed as blood pressures were low maintained on hemodialysis. Multiple consultations following including infectious disease the patient is maintained on Eraxis which will be completed after October 06, 2024. Patient is continued on TPN and will continue. Prognosis remains poor and guarded at this time. 10/06/2024 Patient seen and evaluated in follow-up today with no significant changes other than blood sugars are becoming more elevated likely secondary to Cortef be resumed. Will add long-acting insulin and continue with sliding scale. Would recommend ACHS as well as at 2 AM as needed. Patient is afebrile continued on mechanical ventilation and will be completing Eraxis today. 10/07/2024 Patient seen in follow-up today continues on mechanical ventilation with an FiO2 of 30%, currently awake following commands and is maintained on low-dose propofol. Blood sugars extremely elevated above 500 and had started long-acting although no improvement, likely secondary to Solu-Cortef and is placed on insulin drip. Will adjust accordingly and titrate and attempt to wean as tolerated. Patient has completed Eraxis with infectious disease following closely. Hemoglobin was also noted to be low at 6.9 today and being transfused 1 unit and will follow-up on repeat labs this afternoon. Patient is scheduled to receive hemodialysis today. Patient is requesting if he can eat although is maintained on TPN and now with blood sugars of 500, no plans for resuming a diet as of today. 10/08/2024 Patient is seen in follow-up today is being closely monitored off antibiotic therapy and has completed Eraxis with infectious disease following closely. Patient is maintained on TPN along with Solu-Cortef and blood sugars were elevated requiring insulin drip as blood sugars were also noted to be over 500 yesterday. Blood sugars improved being started on long-acting along with sliding scale and insulin drip discontinued. Cortef also being adjusted per pulmonary ultrasound technol. Patient continues on mechanical ventilation is awake and alert. FiO2 is 30%. Hemoglobin is improved status post 1 unit PRBC and is 8.2 today. Sodium improved at 133 with a potassium of 4.3, BUN is 51 and creatinine is 1.48. Case management/social work is following and awaiting until new insurance becomes effective next month and looking into possible ECF versus LT AC. Patient does have significant complex comorbidities and extremely guarded prognosis, would benefit from LTAC. Patient is afebrile and most recent blood cultures remain negative. 10/09/2024 Patient is seen in follow-up this morning continues to be in the ICU. Patient being evaluated by speech as patient would like to eat and will await official report. Patient's blood sugars have improved and transitioned off insulin drip maintained on long-acting along with sliding scale and will continue. Case management/social work is following looking into possible ECF that can accommodate hemodialysis as well as his significant comorbidities and ventilation via tracheostomy. Patient would benefit from LTAC although is having insurance issues. New insurance will become effective in October to be able to receive more LTAC days. Patient with significant multiple comorbidities requiring higher level of care. Patient is afebrile and CBC is within normal limits with no active bleeding noted. Will continue to monitor closely and recommend follow-up labs. 10/12/2024 Patient is seen in follow-up today with multiple consultations following. Patient is currently receiving hemodialysis and hemoglobin is stable with no active bleeding noted. Patient is being closely monitored off antibiotic therapy with infectious disease following. Patient has completed Eraxis. Patient to continue on TPN and will follow-up on repeat labs. Cortef is being titrated and dose is being decreased. Continue monitoring Accu-Cheks and tight glycemic control. Patient is maintained on mechanical ventilation via tracheostomy with FiO2 of 30%. Awaiting for new insurance to become effective October 16 and then will be determined an ECF versus LTAC 10/13/2024 Patient is seen in follow-up today with no acute overnight issues noted. Hemoglobin is stable above 8.1 with no active bleeding noted. Blood sugar slightly elevated and Cortef is being weaned down. Patient is currently receiving hemodialysis. Apparently per nursing, new insurance becomes effective October 16, 2024 with case management following looking into possible LTAC versus ECF that can accommodate tracheostomy with chronic vent, TPN. Patient is afebrile and was recently reevaluated by speech maintained on diet with aspiration precautions ordered. 10/14/2024 Patient is continued on mechanical ventilation via tracheostomy with FiO2 of 30% with no changes made. Patient currently awaiting new insurance to become effective after October 16 to determine if patient has eligible LTAC days versus ECF. Patient is maintained on TPN and will continue at this time. Blood sugars controlled on current regimen and will adjust insulins accordingly. Patient is afebrile with no reported chest pain or palpitations. Patient is continued on hemodialysis with nephrology following closely. Hemoglobin is stable above 8 with no active bleeding noted. Recommend follow-up labs and replacing electrolytes per protocol. Chest x-ray reveals stable chest with continued effusions noted. 10/15/2024 Patient seen in follow-up today with no acute overnight issues noted. Patient continues on mechanical ventilation via tracheostomy and will continue with current treatment plan. Patient is continued on hemodialysis with nephrology following and hemoglobin remained stable at 7.5. No active bleeding noted. Patient continued on TPN and will follow-up with repeat labs and replace electrolytes per protocol. Will discuss further with case management regarding discharge planning and treatment plan moving forward after new insurance is effective after October 16. Review of systems: Constitutional: No reports of fatigue, fever, or chills Cardiovascular: No reports of chest pain or palpitations Respiratory: No reports of shortness of breath or cough GI: No reports of nausea, vomiting, or diarrhea, reports eating very little : No reports of dysuria or retention Neurovascular: reports of weakness, and is bedbound All medications have been reviewed Physical examination: GENERAL:, 49-year-old male who is asleep although arousable, awake, alert and oriented x 3, following commands continued on mechanical ventilation via tracheostomy with an FiO2 of 30%, chronically ill-appearing but EYES: Pupils equal. Conjunctiva normal HEENT: External appearance of nose and ears normal, oral cavity dry NECK: JVD unable to assess; masses not palpable. Tracheostomy HEART: First and second heart sounds are normal; no edema. LUNGS: decreased breath sounds bilaterally, some crackles ABDOMEN: Soft, nontender, liver spleen not palpable, no masses palpable. Double barrel ostomy. PSYCH: Following simple commands, lethargic, undergoing hemodialysis MUSCULOSKELETAL: Right BKA. Left foot drop. Left hand contracture. Right hand also with contracture but able to have some movements NEUROLOGICAL: Cranial nerves grossly intact; no facial asymmetry, slight movement in the right arm. Assessment plan: - Basilar pneumonia. Previous admission sputum was positive for Pseudomonas aeruginosa - Candidemia secondary to left chest wall PICC line that has been discontinued. And repeat blood cultures on September 22 negative. - Fluid overload - Acute kidney injury from ATN from septic shock. And possibly vancomycin toxicity. Oliguric. Volume overload. First dialysis was on September 22.-Has been getting dialysis nearly daily. From now on dialysis schedule be Saturday - Metabolic alkalosis, improved - Septic shock: Requiring pressor support, improved and off pressors - Acute on chronic hypoxic and hypercapnic respiratory failure, vent dependent at night at home, FiO2 30% - Tracheostomy with trach collar -Acute normocytic anemia of chronic disease and hospital-acquired anemia from blood draws and possible hemolysis from infection - Thrombocytopenia likely from sepsis: Corrected - Right below-knee amputation history - Chronic quadriparesis. Including left foot drop. Left arm contracture. Some right hand contracture. Some movement in the right arm - Crohn's disease with double barrel ostomy bag in place since 09/2021 - TPN and lipids, chronically, maintained on Saturday/Saturday/Saturday schedule - Hyperglycemia, likely secondary to Solu-Cortef as well as TPN, started on insulin drip 10/07/2024, improved although continues to be elevated and uncontrolled, off insulin drip - Full code - DPDAVID, haylee PENA Plan: Patient remains in the ICU on mechanical ventilation with an FiO2 of 30% via tracheostomy Continued per propofol along with Dilaudid Patient has completed Eraxis 10/06/2024 per ID recommendations being closely monitored off antibiotic therapy Continue current supportive care Nephrology following and patient is maintained on hemodialysis currently receiving today Blood sugars have been elevated and uncontrolled likely secondary to Solu-Cortef being resumed, patient was on insulin drip and has transitioned to long-acting along with sliding scale, Solu-Cortef reduced as well, currently 5 mg at night and 10 mg during the day of Cortef Recommend follow-up labs in the a.m. including CBC and CMP. Replace electrolytes per protocol. Transfuse if 7 or less on hemoglobin. No active bleeding noted and hemoglobin is stable at 7.5 Case management/social work following and awaiting new insurance to become effective October 16, discharge planning which will require LTAC versus ECF Overall prognosis is extremely poor and per family and patient, CODE STATUS remains full code The impression and plan of care has been dictated by Alyssa Hernandez, Nurse Practitioner as directed. Dr. Gerry MD I have performed a history and examination and MDM of this patient, discussed the same with the dictator, and agree with the dictator's assessment and plan as written ,documented as a scribe. Based on total visit time, I have performed more than 50% of the visit. Objective - Vital Signs Vital signs: Vital Signs Temp 97.8 F 10/15/24 20:00 Pulse 108 H 10/15/24 21:00 Resp 26 H 10/15/24 21:00 BP 124/87 10/15/24 21:00 Pulse Ox 99 10/15/24 21:00 FiO2 30 10/15/24 20:09 Intake & Output 10/15/24 10/15/24 10/16/24 06:59 18:59 06:59 Intake Total 2208 1770 255 Output Total 95 1938 0 Balance 2113 -168 255 Weight 87.6 kg 87.6 kg Intake: IV 550 Magnesium Sulfate-D5w Pmx 100 1 gm In Dextrose/Water 1 100ml.bag @ 100 mls/hr IVPB ONCE ONE Rx#: [id number] Potassium Chloride 20 meq 200 In Water For Injection 1 100ml.bag @ 50 mls/hr IVPB Q2H [facility] Rx#: [id number] Sodium Phosphate 30 mmol 250 In Dextrose 5% in Water 250 ml @ 65 mls/hr IVPB ONCE ONE Rx#:[id number] Intake, IV Titration 1084 Amount Mvi, Adult No.4 with Vit 1084 K 10 ml Trace (Conc-1Ml/ Dose) 1 ml Sodium Acetate 64 meq Sodium Chloride 4Meq/ml Vial 120 meq Potassium Chloride 10 meq Calcium Gluconate 0.5 gm Magnesium Sulfate gm 0.5 gm In Amino Acids 5 %/ Dextrose 20 % 1,000 ml @ 85 mls/hr IV .BY DURATION [facility] Rx#:[id number] Sodium Acetate 64 meq 0 Sodium Chloride 4Meq/ml Vial 120 meq Potassium Chloride 10 meq Calcium Gluconate 0.5 gm Magnesium Sulfate gm 0.5 gm In Amino Acids 5 %/ Dextrose 20 % 1,000 ml @ 85 mls/hr IV .BY DURATION [facility] Rx#:[id number] Oral 200 TPN/PPN 935 1020 255 Mvi, Adult No.4 with Vit 935 1020 255 K 10 ml Trace (Conc-1Ml/ Dose) 1 ml Sodium Acetate 64 meq Sodium Chloride 4Meq/ml Vial 120 meq Potassium Chloride 10 meq Calcium Gluconate 0.5 gm Magnesium Sulfate gm 0.5 gm In Amino Acids 5 %/ Dextrose 20 % 1,000 ml @ 85 mls/hr IV .BY DURATION ANNIE Rx#:[id number] Lipid 189 Fat Emulsion 20% 250 ml 189 In Empty Bag 1 bag @ 21 mls/hr IV Q72H [facility] Rx#: [id number] Output: Urine 95 88 0 Stool 1850 Other: Voiding Method Indwelling Catheter Indwelling Catheter Indwelling Catheter ABP, PAP, CO, CI - Last Documented Arterial Blood Pressure - Labs CBC & Chem 7: 10/15/24 02:54 10/15/24 16:31 Labs: Abnormal Lab Results - Last 24 Hours (Table) 10/14/24 10/15/24 10/15/24 Range/Units 23:38 02:54 02:54 WBC 4.18 L (4.50-10.00) 10*3/uL RBC 2.74 L (4.40-5.60) 10*6/uL Hgb 7.5 L (13.0-17.0) g/dL Hct 24.9 L (39.6-50.0) % MCHC 30.1 L (32.0-37.0) g/dL Sodium 134 L (137-145) mmol/L BUN 50 H (9-20) mg/dL Creatinine 1.98 H (0.66-1.25) mg/dL Glucose 134 H (74-99) mg/dL POC Glucose (mg/dL) 154 H (70-110) mg/dL Phosphorus 1.7 L (2.5-4.5) mg/dL Total Bilirubin 2.0 H (0.2-1.3) mg/dL ALT 60 H (4-49) U/L Alkaline Phosphatase 269 H (38-126) U/L Albumin 2.5 L (3.5-5.0) g/dL 10/15/24 10/15/24 10/15/24 Range/Units 07:09 12:11 16:51 WBC (4.50-10.00) 10*3/uL RBC (4.40-5.60) 10*6/uL Hgb (13.0-17.0) g/dL Hct (39.6-50.0) % MCHC (32.0-37.0) g/dL Sodium (137-145) mmol/L BUN (9-20) mg/dL Creatinine (0.66-1.25) mg/dL Glucose (74-99) mg/dL POC Glucose (mg/dL) 154 H 165 H 131 H (70-110) mg/dL Phosphorus (2.5-4.5) mg/dL Total Bilirubin (0.2-1.3) mg/dL ALT (4-49) U/L Alkaline Phosphatase (38-126) U/L Albumin (3.5-5.0) g/dL
[2024-10-16 00:12] LABS: Glucose,Whole Blood 160 mg/dL (70-110)
[2024-10-16 04:04] LABS: ALT 48 U/L (4-49); AST 39 U/L (17-59); African American GFR (CKD) 30 (>60 ml/min/1.73 sqM); Albumin 2.5 g/dL (3.5-5.0); Alkaline Phosphatase 223 U/L (38-126); Anion Gap 10 mmol/L; Blood Urea Nitrogen 75 mg/dL (9-20); Calcium 9.6 mg/dL (8.4-10.2); Carbon Dioxide 25 mmol/L (22-30); Chloride 99 mmol/L (98-107); Glucose 137 mg/dL (74-99); Magnesium 2.0 mg/dL (1.6-2.3); Non-African American GFR(CKD) 26 (>60 ml/min/1.73 sqM); Potassium 4.1 mmol/L (3.5-5.1); Sodium 134 mmol/L (137-145); Total Protein 6.8 g/dL (6.3-8.2)
--- NOTE | 2024-10-16 07:53 | XR ---
EXAMINATION TYPE: XR chest 1V portable DATE OF EXAM: 10/16/2024 COMPARISON: NONE CLINICAL INDICATION: Male, 49 years old with history of Intubated; , TECHNIQUE: XR chest 1V portable views of the chest. FINDINGS: Indwelling tubes and catheters are unchanged. No change in bibasilar opacities. Stable appe arance of the cardio-mediastinal structures at this time. Pleural effusion unchanged. Elevated right hemidiaphragm. Degenerative change of the spine and arthropathy of the shoulders. Surgical clips soft tissues right neck. IMPRESSION: 1. Stable bilateral consolidation and small effusion and findings suggestive of CHF. Underlying pneum onia not excluded. [facility], , 10/16/2024 7:51 AM
--- NOTE | 2024-10-16 07:53 | P.PN ---
Subjective Patient is seen in follow-up for acute kidney injury, hemodialysis dependent. Started on hemodialysis September 22, 2024. Receiving TPN. Scheduled for dialysis today. Resting in bed. No changes overnight. Vital signs are stable. General: Awake on vent. HEENT: Tracheostomy noted. LUNGS: Scattered rhonchi. HEART: Rate and Rhythm are regular. ABDOMEN: Ostomy noted. EXTREMITITES: Trace edema left lower extremity. Right BKA. Objective - Vital Signs Vital signs: Vital Signs Temp 98.1 F 10/16/24 04:00 Pulse 101 H 10/16/24 07:00 Resp 32 H 10/16/24 07:00 BP 112/47 10/16/24 07:00 Pulse Ox 97 10/16/24 07:00 FiO2 30 10/16/24 07:49 Intake & Output 10/15/24 10/16/24 10/16/24 18:59 06:59 18:59 Intake Total 1770 1020 85 Output Total 1938 1115 1110 Balance -168 -20 -1020 Weight 87.6 kg 89.4 kg Intake: IV 550 Magnesium Sulfate-D5w Pmx 100 1 gm In Dextrose/Water 1 100ml.bag @ 100 mls/hr IVPB ONCE ONE Rx#: [id number] Potassium Chloride 20 meq 200 In Water For Injection 1 100ml.bag @ 50 mls/hr IVPB Q2H [facility] Rx#: [id number] Sodium Phosphate 30 mmol 250 In Dextrose 5% in Water 250 ml @ 65 mls/hr IVPB ONCE ONE Rx#:[id number] Oral 200 TPN/PPN 1020 1020 85 Mvi, Adult No.4 with Vit 1020 1020 85 K 10 ml Trace (Conc-1Ml/ Dose) 1 ml Sodium Acetate 64 meq Sodium Chloride 4Meq/ml Vial 120 meq Potassium Chloride 10 meq Calcium Gluconate 0.5 gm Magnesium Sulfate gm 0.5 gm In Amino Acids 5 %/ Dextrose 20 % 1,000 ml @ 85 mls/hr IV .BY DURATION [facility] Rx#:[id number] Output: Gastric Drainage 1100 1100 Urine 88 15 10 Stool 1850 Other: Voiding Method Indwelling Catheter Indwelling Catheter Indwelling Catheter ABP, PAP, CO, CI - Last Documented Arterial Blood Pressure - Labs CBC & Chem 7: 10/15/24 02:54 10/16/24 03:02 Labs: Abnormal Lab Results - Last 24 Hours (Table) 10/15/24 10/15/24 10/16/24 Range/Units 12:11 16:51 00:09 Sodium (137-145) mmol/L BUN (9-20) mg/dL Creatinine (0.66-1.25) mg/dL Glucose (74-99) mg/dL POC Glucose (mg/dL) 165 H 131 H 160 H (70-110) mg/dL Total Bilirubin (0.2-1.3) mg/dL Alkaline Phosphatase (38-126) U/L Albumin (3.5-5.0) g/dL 10/16/24 Range/Units 03:02 Sodium 134 L (137-145) mmol/L BUN 75 H (9-20) mg/dL Creatinine 2.71 H (0.66-1.25) mg/dL Glucose 137 H (74-99) mg/dL POC Glucose (mg/dL) (70-110) mg/dL Total Bilirubin 1.4 H (0.2-1.3) mg/dL Alkaline Phosphatase 223 H (38-126) U/L Albumin 2.5 L (3.5-5.0) g/dL Assessment and Plan Plan: Assessment: 1. Acute kidney injury secondary to ATN secondary to septic shock and vancomycin toxicity. Oliguric. Started on hemodialysis October 02, 2024 via femoral catheter. Now has permacath. 2. Septic shock secondary to pneumonia and fungemia. Off vasopressors. 3. Acute blood loss anemia status post blood transfusions this admission. On Aranesp. 4. Volume overload. Better with UF. 5. Chronic hypoxic and hypercapnic respiratory failure, home ventilator dependent. 6. History of cardiac arrest. 8. Status post right BKA. Plan: Hemodialysis today. Receiving TPN. Awaits discharge pending insurance approval.
[2024-10-16 08:16] LABS: Basophils # (A) 0.02 10*3/uL (0.00-0.10); Basophils % (A) 0.4 %; Eosinophils # (A) 0.08 10*3/uL (0.04-0.35); Eosinophils % (A) 1.8 %; HCT 24.2 % (39.6-50.0); HGB 7.3 g/dL (13.0-17.0); Lymphocytes # (A) 0.82 10*3/uL (0.90-5.00); Lymphocytes % (A) 18.2 %; MCH 27.4 pg (27.0-32.0); MCHC 30.2 g/dL (32.0-37.0); MCV 91.0 fL (80.0-97.0); Monocytes # (A) 0.45 10*3/uL (0.20-1.00); Monocytes % (A) 10.0 %; Neutrophils # (A) 3.11 10*3/uL (1.80-7.70); Neutrophils % (A) 69.2 %; Platelet Count 293 10*3/uL (140-440); RBC 2.66 10*6/uL (4.40-5.60); RDW 17.6 % (11.5-14.5); WBC 4.50 10*3/uL (4.50-10.00)
--- NOTE | 2024-10-16 10:09 | P.PN ---
Subjective Progress Note Date: 10/16/24 Principal diagnosis: Pneumonia. This is a 49-year-old white male familiar to my service, history of paraplegia, home vent dependent, history of tracheostomy, patient had multiple admissions to the ICU for recurrent episodes of pneumonia and respiratory failure requiring ventilatory support. On his last admission patient was eventually discharged home on a home ventilator, and this was back on 08/04/2024. Patient was discharged home with a PICC line, patient was in the ER yesterday on 08/28 for abnormal labs mostly low potassium and low sodium discharged home however he cam e back today complaining of shortness of breath, has been ventilator dependent all along. Chest x-ray showed basically bibasilar opacities/atelectasis, doubt pneumonia, the findings in the left lower lobe are chronic. Patient did have previous history of pneumonia involving the left lower lobe and he had multiple bronchoscopies in the past. Bronchial cultures and sputum cultures have been positive in the past for mostly Pseudomonas aeruginosa. Patient was seen in the ER today, and he is already on cefepime for empiric coverage for potential left lower lobe pneumonia, patient had abnormal electrolytes with relatively low sodium low potassium, no leukocytosis, normal renal profile, blood pressure was soft, and he was given fluid boluses. Lactic acid was 2.1, D-dimer is normal, patient was admitted, and this consult was initiated. 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 Patient was seen today on 08/30/2024, patient continues to have intermittent episodes of fever with Tmax of 102, patient required norepinephrine and he remains on norepinephrine at 0.04 mcg/kg/min remains on LR at 130 cc/h remains on his home ventilator at tidal volume of 450 rate of 20 FiO2 45% and PEEP of 5. Seems comfortable, not in distress, his WBC is 3.5 hemoglobin 10.0 electrolytes are normal renal profile is normal potassium is borderline low. Patient remains on cefepime, vancomycin was added because of his previous history of MRSA, and is on cefepime for previous history of pseudomonal infection and now that the patient may be septic it is more of a reason to broaden the spectrum of antibiotics coverage with cefepime and vancomycin. Sputum cultures and blood cultures are pending. Patient does have history of pseudomonal and history of MRSA infections, and I discontinued his Zithromax today replace Zithromax with vancomycin. Viral screen is negative Legionella antigen is negative. Chest x- ray is relatively unchanged continues to show bibasilar opacities atelectasis/pneumonia. Progress note dated August 31, 2024. The patient is seen today in room 252. The patient was admitted a couple days ago, to the intensive care unit. The patient is currently on mechanical ventilator, actually his home ventilator. He is on volume assist-control, rate 20, tidal volume 450, FiO2 45% PEEP of 5. The patient is getting lactated Ringer's at 130 cc an hour, TPN at 91 cc an hour, norepinephrine at 8 mcg/min. Doppler of the left upper extremity was negative. He continues on Zerbaxa, and vancomycin. We will check a procalcitonin level. Cultures thus far are negative. He does have a previous history of methicillin-resistant Staph aureus infection, and pseudomonal infections. White count was 2.21, hemoglobin 9.3, hematocrit 32, platelet count 1 61,000. D-dimer was 5.78. Sodium 132, potassium 4.3, chlorides 106, CO2 21, BUN 18, creatinine 0.28. Glucose was 141. Calcium 7.8. C. difficile study was negative. Urine Legionella antigen was negative. Microbiologic studies are currently negative. Chest x-ray shows bibasilar airspace opacities, possibly consistent with pneumonia. 09/01/24 - The patient is seen today in room 252. Admitted to the hospital and the intensive care unit on 08/29/2024. The patient is currently on mechanical ventilator, his one from home. He is on volume assist control, rate of 20, tidal volume of 450, FiO2 45% and PEEP of 5. He currently has LR running at 50 cc/h, TPN at 91 cc/h, Zerbaxa and tobramycin. Chest Xray done this morning showed stable airspace opacities. Cultures are positive for pseudomonas aeruginosa, awaiting sensitivities. WBCs 2.69, Hgb 8.9, Hct 31.5, PLT 153, Na 135, K 3.4, Cl 109, HCO3 19, BUN 22, Cr 0.34, Phos 2.4. 09/02/24 - He is seen today in room 252. Admitted to the hospital and ICU on 08/29/24. He continues on mechanical ventilator, his one from home. He remaines on volume assist control, rate of 20, tidal volume of 450, FiO2 45% and PEEP of 5. He continues to have LR running at 50 cc/h, TPN at 91 cc/h, norepinephrine at 0.13 mcg/kg/min, Zebraxa and Tobramycin. Chest XRay this morning showed stable airspace opacities. Continue to await sensitivity of pseudomonas sputum culture. Lab work shows WBCs 3.64, Hgb 9.7, Hct 33.5, PLT 130, Na 133, K 3.9, bicarb 21, BUN 23, Cr 0.36, Ca 7.8, Mg 2.4, Albumin 2.3. 09/03/24 - He is seen in room 252. Admitted to the hospital and ICU on 08/29/24. He continues on mechanical ventilator, his one from home. He remaines on volume assist control, rate of 20, tidal volume of 450, FiO2 45% and PEEP of 5. He continues to have LR running at 50 cc/h, TPN at 91 cc/h, norepinephrine at 0.24 mcg/kg/min, Avycaz and Tobramycin. Zebraxa was discontinued as there was no reported sensitivity to it. Lab work shows WBCs 9.40, Hgb 8.8, Hct 30.6, PLT 100, Na 130, K 3.6, bicarb 23, BUN 25, Cr 0.51, Ca 7.8, Ionized Ca 4.6, Phos 3.3, Mg 2.1, TSH 2.710 and random cortisol 13.1. 09/04/24 - He is seen in room 252. Admitted to the hospital and ICU on 08/29/24. He continues on mechanical ventilator, his one from home. He remaines on volume assist control, rate of 20, tidal volume of 450, FiO2 45% and PEEP of 5. He continues to have LR running at 50 cc/h, TPN at 91 cc/h, norepinephrine at 0.24 mcg/kg/min, Avycaz and Tobramycin. Lab work shows sodium 133, potassium 3.5, bicarb 24, BUN 27, creatinine 0.47, calcium 7.9, ionized calcium 4.6, magnesium 1.9, phosphorus 3.0, total bilirubin 1.7, AST 57, ALT 45, alkaline phosphatase 99. Progress note dated September 05, 2024. 49-year-old male well-known to our service. He is seen today in room 252. He continues on volume assist-control, rate 20, tidal 450, FiO2 45%, PEEP of 5. The patient has refused blood gases. Currently, he is getting TPN at 65 cc an hour, norepinephrine at 1 mcg/min, LR at 50 cc/h. Clinically, the patient is doing well. His chest x-ray remains about the same. Yesterday he was on a higher dose of norepinephrine, and also was on vasopressin. Both have been weaned off. Current labs include a sodium 136, potassium 4.1, chlorides 101, CO2 28, BUN 30, creatinine 0.37. Glucose 153. Albumin is 2.2. Previous sputum, from August 29 with positive for Pseudomonas aeruginosa. Chest x-ray is largely unchanged. Progress note dated September 06, 2024. 49-year-old male again seen today in the intensive care unit, room 252. He remains on mechanical ventilator, actually his home ventilator, with settings of volume assist-control, rate 20, tidal volume 450, FiO2 45%, PEEP of 5. No blood gases today. The patient has been refusing. He is getting lactated Ringer's at 50 cc an hour, TPN at 65 cc an hour. He continues on the same antibiotics. White count 5.21, hemoglobin 7.9, hematocrit 27.5, and platelet count 64,000. Sodium 141, potassium 3.5, chlorides 102, CO2 32, BUN 25, and creatinine 0.35. Glucose is 152. Calcium is 8. Albumin is 2.1. Chest x-ray is largely unchanged. Patient was seen today on 09/16/2024, patient is basically about the same. Hardly any improvement noted in the last few weeks since admission, patient remains intubated, mechanically ventilated, same ventilator settings, assist-control rate of 20 tidal volume 450 FiO2 60% and PEEP of 8 ABG was not done today, no easy access, attempted to place arterial lines in this patient, but could not pass a wire although the arteries including femoral artery and left brachial artery were easily cannulated. No further attempts made for arterial access. Patient remains on norepinephrine at 0.13 mcg/kg/min still on TPN at 75 cc/h still on Zerbaxa and vancomycin chest x-ray showed worsening today of bilateral infiltrates possibly some component of fluid overload and I recommended Lasix 20 mg IV push twice daily. Patient seems to be quite swollen and edematous. WBC count is 5.4 hemoglobin 7.6 electrolytes showed sodium of 146 potassium 4.1 BUN 20 creatinine 0.47 Patient was seen today on 09/17/2024, patient seems to be deteriorating steadily over the last 24 hours, he is developing profound hypotension requiring pressors in the form of Levophed at 0.4 mcg/kg/min he is also on vasopressin at 0.04 units/min he is on TPN at 75 cc/h hemoglobin is noted to be low at 6.9, patient has positive yeast in the blood/fungemia he is on fluconazole, this is being addressed by infectious disease on the case. Earlier ABG showed a pO2 of 77 pCO2 88 pH of 7.13, Vent settings were adjusted with increasing the rate to 36. He is now on tidal volume of 350 FiO2 100% PEEP is 10 and rate is 36. Another ABG is pending. But clearly patient is taking a downhill clinical course. Patient is quite septic, I will likely change his central line, and place a new central line in this patient today and remove the old central line/PICC line. Patient will receive a unit of packed RBCs for hemoglobin of 6.9. Considering the change in his overall clinical status, discussed his condition with son, would like to keep his dad as a full code, he is very well aware of the poor prognostic picture and how ill his dad is. Would like to keep him a full code. WBC count today is 20.03 hemoglobin 8.5, basic metabolic profile is normal BUN is 25 creatinine 0.4 total protein is 6.9 albumin is 1.9. Patient was seen today on 09/18/24, remains in the ICU, intubated and mechanically ventilated. Patient is still requiring assist-control rate of maximal ventilatory support with rate of 36 tidal volume increased today up to 400 FiO2 decreased from 100% to 70% PEEP remains at 12. Earlier ABG before changes were made at the FiO2 had been on tidal volume showed a pO2 of 77 pCO2 68 pH of 7.20. Patient is still requiring norepinephrine and I have been titrating the norepinephrine earlier this morning he is down to 0.18 from 0.46 yesterday micrograms per kilo per minute vasopressin is still at 0.04 units/min patient is on propofol at 50 mcg/kg/min Lasix drip at 20 mg/h and TPN at 75 cc/h. I am also treating the patient with vancomycin, Zerbaxa, and Eraxis was added to replace fluconazole yesterday by infectious disease specially with his positive blood cultures for Bella. Urine output is improving with the Lasix drip, he did not improve much with 1 dose of Lasix 60 mg IV push. Remains on Solu-Cortef at 100 mg IV push every 8 hours patient is in positive fluid balance about 6 L hence I decided to go with Lasix drip today. Labs today showed slight improvement in his WBC count down to 14.9 hemoglobin is 7.6, electrolytes are abnormal with a potassium of 6.1 BUN is 45 creatinine 0.82 chest x-ray continues show bilateral interstitial edema/infiltrates, could be cardiogenic or noncardiogenic pulmonary edema I believe it is mostly cardiogenic/related to fluid overload as he received significant fluids yesterday for low blood pressure. And he was not making much urine in the last 24 hours. Hence Lasix drip was started today. Patient was seen today on 09/19/2024, remains in the ICU, remains intubated and mechanically ventilated. Patient is on assist-control rate of 36 tidal volume 400 FiO2 65% and PEEP of 12. His ABG showed a pO2 of 142 pCO2 52 pH of 7.28, hence cut down his FiO2 down to 50%. The PEEP at 12. Patient remains hemodyn amically unstable, remains on norepinephrine at 0.08 mcg/kg/min, his vasopressin has been discontinued. TPN is at 75 cc/h. Remains on Lasix drip/infusion at 20 mg/h. He is on propofol at 50 mcg/kg/min remains on Solu-Cortef 50 mg every 8, Eraxis, Zerbaxa, vancomycin. Urine output is marginal at about 10 to 20 cc/h in spite of Lasix drip. Lovenox will be resumed today at 80 mg subcu twice daily. Patient is sedated, his overall clinical status is showing slight improvement compared to the clinical status couple of days ago. Chest x-ray continues to show evidence of interstitial edema although the possibility of ARDS is not entirely ruled out considering his overall septic picture. CBC is about the same with WBC of 7.7 hemoglobin 7.1. Platelets are 128,000. Basic metabolic profile is normal potassium is down to 5.2 BUN is 67 creatinine is slightly higher today 1.13. Blood sugar is 358. Patient was seen today on 09/20/2024, remains in the ICU intubated mechanically ventilated. On assist-control rate of 36 tidal volume 400 FiO2 50% PEEP of 12, no ABG done today, however his O2 saturation is in the high 90s about 98%. Patient had a low hemoglobin today and he will need a unit of blood/packed RBCs for low hemoglobin. No active bleeding noted, Hemoccult stools will be done t lizette. Patient remains on Eraxis and Zerbaxa, his vancomycin was discontinued remains on lower dose of Solu-Cortef 50 mg IV push every 12 hours. Continues to have poor urine output and his renal functioning is getting a bit worse. Nephrology was consulted, patient received initially significant amount of fluids for his presentation of sepsis, and he remained oliguric in spite of fluid boluses. Then he was placed on Lasix drip which initially was working fine, now that urine output is rather marginal and spite of Lasix drip at 20 mg an hour. I am recommending a trial of albumin followed by 80 mg of Lasix IV push. And hopefully his urine output will brass pickler with the albumin and with the blood transfusion which is scheduled to be done soon. Vancomycin has been discontinued. Chest x-ray continues to show evidence of interstitial edema. Labs are reviewed his potassium is 5 bicarb is 20 BUN is 83 creatinine 1.49 platelets are 105 hemoglobin 6.3. Progress note dated September 21, 2024. The patient remains on volume assist-control, rate 36, tidal volume 400, FiO2 50%, PEEP of 12. Blood gases were not obtained. He continues on TPN at 75 cc an hour, propofol at 50 mcg/kg/min, saline at 10 cc an hour, and norepinephrine is currently on hold. Antibiotic douglas, he continues on vancomycin, and Eraxis. White count is 6.9, hemoglobin 7.6, hematocrit 24.3, and platelet count 115,000. Sodium 137, potassium 5.1, chlorides 103, CO2 18, anion gap 16, BUN 99, creatinine 1.58. Glucose is 228. Calcium 8.1, phosphorus 5.4, magnesium 2.5. Culture data shows evidence of Pseudomonas aeruginosa back on August 29, Pseudomonas in the bronchial washings on September 07, and blood cultures positive, September 18, currently pending. Chest x-ray is largely unchanged, shows patchy diffuse airspace opacities, with a small right-sided pleural effusion. Progress note dated September 22, 2024. The patient is seen today in room 252. He remains on volume assist-control. Settings include volume assist-control 36, tidal volume 400, FiO2 50%, PEEP of 12. He is getting propofol at 50 mcg/kg/min, norepinephrine at 3 mcg/min, and TPN at 75 cc an hour. He is having hemodialysis today. The goal is removal of 1 to 2 L of fluid. He continues on Eraxis. We were able to place a right radial arterial line. We will repeat a blood gas, after hemodialysis. Current laboratory data includes a white count 7.4, hemoglobin 7.3, hematocrit 23.4, and a platelet count of 114,000. Sodium 134, potassium 5.4, chlorides 104, CO2 15, anion gap 15, BUN 110, creatinine 1.79. Glucose is 153. Calcium is 8.3. Previous blood in sputum sampling, showed evidence of Pseudomonas aeruginosa. The patient also has previous blood culture showing evidence of Bella species. Chest x-ray today is largely unchanged. Progress note dated September 23, 2024. 49-year-old male seen today in room 252. He remains on mechanical ventilation. He is on volume assist-control, rate 36, tidal volume 400, FiO2 40%, PEEP of 12. Blood gases show pO2 100, pCO2 44, pH is 7.30. Patient continues on norepinephrine at 5.6 mcg/min, propofol at 50 mcg/kg/min, TPN at 33 cc an hour. He is getting saline at 10 cc an hour. He had hemodialysis yesterday, September 22, and 1 L of fluid was removed. He continues on Eraxis, as per infectious diseases. White count is 9.0, hemoglobin 7.7, hematocrit 24, and platelet count is 155,000. Sodium 132, potassium 4.5, chlorides 96, CO2 20, anion gap 16, BUN 80, and creatinine 1.69. Glucose is 145. Calcium 8.5. Most recent blood cultures, on September 18, were positive for Bella. Today's chest x-ray is largely unchanged. Progress note dated September 24, 2024. 49-year-old male seen today in room 252. The patient continues on life support, IV volume assist-control, rate 36, tidal volume 400, FiO2 40%, PEEP of 12. Blood gases show pO2 100, pCO2 42, pH is 7.39. The patient is getting propofol at 15 mcg/kg/min, norepinephrine at 4 mcg/min, TPN at 33 cc an hour, and saline at 10 cc an hour. The patient's hemoglobin is 7. He continues on Eraxis. The patient static lung compliance is 23.5 mL/cm water. He has very stiff lungs. White count is 6.7, hemoglobin 7, hematocrit 22.4, platelet count 158,000. Sodium 130, potassium 4, chlorides 95, CO2 22, anion gap 13, BUN 58, creatinine 1.52. Glucose is 114. Calcium 8.3. Magnesium 1.7. No recent new culture data. Chest x-ray is about the same as it was a day before. It shows right basilar airspace opacities, with a small right-sided pleural effusion. There was some interstitial prominence. Progress note dated September 25, 2024. 49-year-old male seen today in room 252. He remains on volume assist-control, rate 36, tidal volume 400, FiO2 30%, and PEEP of 12, to be dropped to a PEEP of 8. Blood gases show pO2 of 82, pCO2 36, pH of 7.49. The patient is on TPN at 33 cc an hour, propofol at 30 mcg/kg/min, and norepinephrine at about 3 mcg/min. He is having hemodialysis today. Goal is to remove 2 to 3 L if tolerated. The patient continues on Eraxis. White count 7.5, hemoglobin 7.6, hematocrit 23.9, and platelet count of 194,000. Sodium 129, potassium 3.5, chloride 94, CO2 24, anion gap normal, BUN 35, creatinine 1.06. Glucose is 115. Albumin is 2.5. Recent blood cultures are positive for Bella. Chest x-ray is largely u nchanged. There is right basilar airspace disease, with a small right-sided pleural effusion. Progress note dated September 26, 2024. 49-year-old male seen today in room 252. He remains on volume assist-control, rate 36, tidal volume 400, FiO2 30%, PEEP of 8. Blood gases show pO2 of 73, a PCO2 of 34, and a pH of 7.54. He continues on propofol at 20 mcg/kg/min, norepinephrine at approximately 2 mcg/min, TPN at 33 cc an hour. The patient does continue on Eraxis, for fungemia. Current labs showed a white count of 7.32, hemoglobin 7.5, hematocrit 23.7, and a normal platelet count. Sodium 132, potassium 3.4, chloride 79, CO2 25, anion gap 8, BUN 22, and creatinine 0.87. Chest x-ray shows bilateral infiltrates, consistent with either pneumonia, or fluid overload. The chest x-ray is largely unchanged from the prior x-ray. Progress note dated September 27, 2024. 49-year-old male again seen in room 252. He remains on mechanical ventilation. He is on volume assist-control, rate 36, tidal volume 400, FiO2 30%, PEEP of 8. Blood gases show PO279, PCO2 of 34, pH is 7.54. The patient continues on propofol at 20 mcg/kg/min, norepinephrine at 2 mcg/min, TPN at 33 cc an hour. He had hemodialysis yesterday, 3 L was removed. He continues on Eraxis. In that regard, I did ask the nurse to call the infectious disease doctor, to get a stop date on this medication. White count 6.9, hemoglobin 7.8, hematocrit 24.8, platelet count 224,000. Sodium 131, potassium 3.4, chloride 97, CO2 26, anion gap 8, BUN 19, and creatinine 0.87. Calcium is 8.1. Chest x-ray, in my opinion, is improved. Patient was seen today on 10/09/2024, remains in the ICU, intubated mechanically ventilated, awake, off propofol, not requiring any pressors at this point, patient remains on assist-control rate of 24 tidal volume 400 FiO2 30% and PEEP of 5 patient is receiving hemodialysis during my evaluation. Remains on TPN at 85 cc/h. Chest x-ray is showing improvement in his bilateral airspace disease. Patient remains on Solu-Cortef, and I changed that to oral 25 mg p.o. twice daily. Labs today showed WBC count of 6.2 hemoglobin 8.7 electrolytes are normal BUN is 79 creatinine 2.02 Patient was seen today on 10/10/2024, remains in the ICU intubated mechanically ventilated, on assist-control rate of 24 tidal volume 400 FiO2 30% PEEP of 5 no ABG has been done today. Patient remains on TPN at 85 cc/h. Patient remains on hemodialysis Saturday and Saturday patient had a swallow evaluation and recommendation was chopped diet. We have placed the patient yesterday on Cortef orally. Remains on heparin subcu. He is hemodynamically stable, not requiring any pressors. Chest x-ray. Continues to show stable chest. Small pleural effusions noted. WBC count is 5.8 hemoglobin 8.2 electrolytes showed low sodium 129 potassium 3.5 BUN 55 creatinine 1.59 Patient was seen today on 10/11/2024, patient remains in the ICU intubated mechanically ventilated, on assist-control rate 24 with tidal volume 400 FiO2 30% PEEP of 5 patient is resting, he is not in any distress he is not requiring any pressors TPN is at 85 cc/h. CBC is basically unremarkable hemoglobin is 8.9 electrolytes are normal BUN is 84 creatinine 2.44. Clinically I believe this is the best I have seen this patient since his last admission. Chest x-ray showed minimal basilar atelectasis especially at the left base. This is relatively chronic. Progress note dated October 12, 2024. 49-year-old male who is now been in the hospital for 49 days. The patient was last seen by me on September 27. Currently, he remains on mechanical ventilation. He is on volume assist-control, rate 24, tidal volume 400, FiO2 30%, PEEP of 5. The patient is not receiving any IV fluids, or antibiotics. The patient is scheduled to have hemodialysis today. He is getting TPN at 85 cc an hour. His last hemodialysis session was last Saturday, and 3 L was removed. He is stable on the ventilator. His peak airway pressure is 27 cm of water. His plateau pressure of 17 cm of water. Current labs with a white count of 4.55, hemoglobin 8.1, hematocrit 25.1, platelet count 141,000. Sodium 136, potassium 5.1, chlorides 101, CO2 23, BUN 108, and creatinine 2.81. Anion gap is 12. Glucose is 155. Chest x-ray is largely unchanged. According to the nurses, the patient had an uneventful night. Progress note dated October 13, 2024. 49-year-old male, seen today in room 252. He is now been in the hospital for 50 days. The patient is doing about the same. He had an uneventful night according to the nurses. He remains on mechanical ventilation. Vent settings include volume assist-control, rate 24, tidal volume 400, FiO2 30%, PEEP of 5. There were no blood gases done. He does not have an arterial line. Also, he refused a chest x-ray today. The patient is currently on TPN at 85 cc an hour. Current labs good a white count of 4.5, hemoglobin 8.1, hematocrit 26.9, platelet count 243,000. Sodium 135, potassium 3.5, chlorides 100, CO2 24, anion gap 11, BUN 63, creatinine 1.94. Glucose is 137. Progress note dated October 14, 2024. 49-year-old male, with ventilator dependent respiratory failure. The patient is seen in room 252. The patient has not been here for 46 days. The patient remains on the same ventilator settings. That includes a volume assist-control mode, rate 24, tidal volume 400, FiO2 30%, PEEP of 5. No gases were done. There is no art line in this patient. He had an uneventful night according to the nurses. The discharge planners are still trying to find a place for him to be discharged to. Currently, he is getting TPN at 85 cc an hour. He is having hemodialysis today. The plan is to remove 2.5 L. His chest x-ray looks a bit better. White count 3.9, hemoglobin 8.7, hematocrit 28.6, and a normal platelet count. Sodium 137, potassium 4.2, chlorides 102, CO2 23, anion gap 12, BUN 86, and creatinine 2.64. Glucose 126. Calcium 9.9. Magnesium 2.1. Chest x-ray is slightly better, to unchanged. Progress note dated October 15, 2024. 49-year-old male who was seen today in room 252. He is now been in the hospital for 47 days. He continues on volume assist-control, rate 24, tidal volume 400, FiO2 30%, PEEP of 5. The patient is receiving TPN at 85 cc an hour. He continues on Cortef, 10 in the morning 5 in the evening. This is for adrenal insufficiency. No blood gases were done. His chest x-ray is improved. He is currently not on any antibiotics. He did have hemodialysis yesterday, October 14, with removal of 2.2 L of fluid. White count 4.2, hemoglobin 7.5, hematocrit 24.9, platelet count 265,000. Sodium 134, potassium 3.5, chlorides 99, CO2 28, BUN 50, creatinine 1.98. Glucose 154. Phosphorus 1.7. Albumin 2.5. Chest x- ray is largely unchanged, and improved in my opinion. Progress note dated October 16, 2024. 49-year-old male seen in room 252. He remains on volume assist-control, rate 24, tidal volume 400, FiO2 30%, PEEP of 5. The patient is getting TPN at 85 cc an hour. The patient is to have hemodialysis today. According to his nurse, he had an uneventful night. White count was 4.5, hemoglobin 7.3, hematocrit 24.2, and platelet count is normal. Sodium 134, potassium 4.1, chlorides 99, CO2 25, anion gap 10, BUN 75, creatinine 2.71. Glucose is 137. Albumin is 2.5. Chest x-ray is mostly unchanged. Objective - Vital Signs Vital signs: Vital Signs Temp 98.5 F 10/16/24 08:00 Pulse 102 H 10/16/24 09:00 Resp 19 10/16/24 09:00 BP 129/54 10/16/24 09:00 Pulse Ox 99 10/16/24 09:00 FiO2 30 10/16/24 09:00 Intake & Output 10/15/24 10/16/24 10/16/24 18:59 06:59 18:59 Intake Total 1770 2093 170 Output Total 1938 1115 1110 Balance -168 978 -940 Weight 87.6 kg 89.4 kg Intake: IV 550 Magnesium Sulfate-D5w Pmx 100 1 gm In Dextrose/Water 1 100ml.bag @ 100 mls/hr IVPB ONCE ONE Rx#: [id number] Potassium Chloride 20 meq 200 In Water For Injection 1 100ml.bag @ 50 mls/hr IVPB Q2H [facility] Rx#: [id number] Sodium Phosphate 30 mmol 250 In Dextrose 5% in Water 250 ml @ 65 mls/hr IVPB ONCE ONE Rx#:[id number] Intake, IV Titration 1073 Amount Sodium Acetate 64 meq 1073 Sodium Chloride 4Meq/ml Vial 120 meq Potassium Chloride 10 meq Calcium Gluconate 0.5 gm Magnesium Sulfate gm 0.5 gm In Amino Acids 5 %/ Dextrose 20 % 1,000 ml @ 85 mls/hr IV .BY DURATION [facility] Rx#:[id number] Oral 200 TPN/PPN 1020 1020 170 Mvi, Adult No.4 with Vit 1020 1020 170 K 10 ml Trace (Conc-1Ml/ Dose) 1 ml Sodium Acetate 64 meq Sodium Chloride 4Meq/ml Vial 120 meq Potassium Chloride 10 meq Calcium Gluconate 0.5 gm Magnesium Sulfate gm 0.5 gm In Amino Acids 5 %/ Dextrose 20 % 1,000 ml @ 85 mls/hr IV .BY DURATION [facility] Rx#:[id number] Output: Gastric Drainage 1100 1100 Urine 88 15 10 Stool 1850 Other: Voiding Method Indwelling Catheter Indwelling Catheter Indwelling Catheter ABP, PAP, CO, CI - Last Documented Arterial Blood Pressure - Exam No acute distress, currently connected to the ventilator. He has a tracheostomy tube in place. HEENT examination is grossly unremarkable. Mucous membranes are moist. No oral lesions. Neck supple. Full range of motion. No adenopathy thyromegaly or neck vein distention. Cardiovascular examination reveals regular rhythm rate. S1-S2 normal. No S3 or S4. No discernible murmur noted. Lungs reveal scattered rhonchi and crackles. No wheezes. Breath sounds equal bilaterally. Abdomen reveals an enterocutaneous fistula, normal bowel sounds. No tenderness. No masses. Extremities are intact. No cyanosis clubbing or edema. Right below the knee amputation. Has a right radial arterial line. Skin is without rash or lesion. Neurologic examination is brief but nonfocal. He does have significant muscle atrophy, and contractures. He has a right below the knee amputation. - Labs CBC & Chem 7: 10/16/24 03:02 10/16/24 03:02 Labs: Abnormal Lab Results - Last 24 Hours (Table) 07/31/25 07/31/25 08/01/25 Range/Units 12:11 16:51 00:09 RBC (4.40-5.60) 10*6/uL Hgb (13.0-17.0) g/dL Hct (39.6-50.0) % MCHC (32.0-37.0) g/dL Lymphocytes # (0.90-5.00) 10*3/uL Sodium (137-145) mmol/L BUN (9-20) mg/dL Creatinine (0.66-1.25) mg/dL Glucose (74-99) mg/dL POC Glucose (mg/dL) 165 H 131 H 160 H (70-110) mg/dL Total Bilirubin (0.2-1.3) mg/dL Alkaline Phosphatase (38-126) U/L Albumin (3.5-5.0) g/dL 10/16/24 10/16/24 Range/Units 03:02 03:02 RBC 2.66 L (4.40-5.60) 10*6/uL Hgb 7.3 L (13.0-17.0) g/dL Hct 24.2 L (39.6-50.0) % MCHC 30.2 L (32.0-37.0) g/dL Lymphocytes # 0.82 L (0.90-5.00) 10*3/uL Sodium 134 L (137-145) mmol/L BUN 75 H (9-20) mg/dL Creatinine 2.71 H (0.66-1.25) mg/dL Glucose 137 H (74-99) mg/dL POC Glucose (mg/dL) (70-110) mg/dL Total Bilirubin 1.4 H (0.2-1.3) mg/dL Alkaline Phosphatase 223 H (38-126) U/L Albumin 2.5 L (3.5-5.0) g/dL Assessment and Plan Assessment: Ventilator dependent respiratory failure, with failure to wean. Septic shock, likely secondary to Pseudomonas pneumonia, resolved. Possible fungemia, completed Eraxis. Chronic hypoxemic and hypercapnic respiratory failure, ventilator dependent, on a home ventilator, S/P tracheostomy. Left lower lobe atelectasis, possible pneumonia, with pseudomonal infection. History of severe tracheal stenosis, S/P tracheostomy. History of recurrent pneumonia, involving the left lower lobe. Tracheobronchomalacia. History of DVT. History of CVA. History of right below-knee amputation. Previous history of asystole/cardiac arrest, 2021. History of Crohn's disease, S/P enterocutaneous fistula, diverting ileostomy. Plan: Plan dated August 31, 2024. The patient is seen today in room 252. The patient's weight had on fluids, and the lactated Ringer's is cut back to 40 cc an hour. The patient will get 1 dose of Lasix IV push. Ventilator settings are noted. No blood gases today. It was apparently refused by the patient. Doppler of the left upper extremity was negative for DVT. Will check a procalcitonin level. The patient continues on norepinephrine at 8 mcg/min. He is getting TPN at 91 cc an hour. We will continue to follow make recommendations along the way. Labs, x-rays, and all medications are reviewed. Prognosis is certainly guarded. Dictation was produced using [employer] software. Please excuse any grammatical, word or spelling errors. Plan dated September 05, 2024. The patient is seen today in room 252. He is connected to his home mechanical ventilator. Settings of the same and include volume assist-control, rate 20, tidal volume 450, FiO2 45%, PEEP of 5. The patient is getting TPN at 65 cc an hour, norepinephrine has been weaned down to 1 mcg/min. He is getting lactated Ringer's at 50 cc an hour. He continues on Avycaz and tobramycin. We will continue to follow make recommendations. The patient also continues on hydrocortisone, for relative adrenal insufficiency. Prognosis is certainly guarded. We will continue to follow. Dictation was produced using [employer] software. Please excuse any grammatical, word or spelling errors. Plan dated September 06, 2024. The patient is seen today in room 252. He continues on mechanical ventilation. The patient is having increased secretions. Will add a scopolamine patch. He continues on Avycaz, and tobramycin. In addition, he continues on TPN at 65 cc an hour, and lactated Ringer's at 50 cc an hour. All labs, x-rays, and m edications are reviewed. Chest x-ray is unchanged. We will continue to follow make recommendations. Prognosis is guarded. Dictation was produced using [employer] software. Please excuse any grammatical, word or spelling errors. Plan dated September 21, 2024. The patient is again seen today in room 252, with presumed ongoing sepsis. The patient has norepinephrine on standby, for blood pressure support, and recently was maxed out on multiple vasopressors. Currently, the patient continues on Eraxis, and vancomycin. The patient also continues on TPN at 75 cc an hour, propofol at 50 mcg/kg/min. All labs, x-rays, medications are reviewed. The patient's overall prognosis remains very poor. We will continue to follow. He remains a full code. Dictation was produced using [employer] software. Please excuse any grammatical, word or spelling errors. Plan dated September 22, 2024. The patient was seen to get her up to 52. We were able to place a right radial art line in the patient. There was good blood return from the arterial line, although the waveform was dampened. The patient continues on appropriate medications, including propofol at 50 mcg/kg/min, norepinephrine at 3 mcg/min. The patient is also getting TPN at 75 cc an hour. He is receiving hemodialysis today. He continues on Eraxis. After hemodialysis, the patient will have a arterial blood gas. Additional recommendations and suggestions are forthcoming. Prognosis is guarded. All labs, x-rays, and medications are reviewed. We will continue to follow the patient, make recommendations. Dictation was produced using [employer] software. Please excuse any grammatical, word or spelling errors. Plan dated September 23, 2024. The patient is again seen today in room 252. The patient's blood gases show pO2 100, pCO2 44, pH of 7.31. Patient continues on norepinephrine at 5.6 mcg/min, propofol at 50 mcg/kg/min. The patient is getting TPN at 33 cc an hour. The patient continues on Eraxis. He had hemodialysis yesterday. All labs, x-rays, and medications are reviewed. The patient remains a full code. Will continue to follow the patient, make recommendations along the way. Prognosis is guard ed. Dictation was produced using [employer] software. Please excuse any grammatical, word or spelling errors. Plan dated September 24, 2024. According to the nurses, the patient had an uneventful night. He continues on volume assist-control, with a rate of 36, tidal volume 400, FiO2 40%, PEEP of 12. Blood gases are adequate with a pO2 of 100, pCO2 of 42, pH of 7.39. The patient continues on sedation with propofol at 50 mcg/kg/min. For his lower blood pressure, he is on norepinephrine at 4 mcg/min. He continues on parenteral nutrition, with TPN at 33 cc an hour. He also continues on Eraxis for fungemia. Hemoglobin is 7. No transfusion at this time. All labs, x-rays, and medications are reviewed. We will continue to follow the patient, make recommendations. The patient's overall prognosis remains poor. Dictation was produced using [employer] software. Please excuse any grammatical, word or spelling errors. Plan dated September 25, 2024. The patient is seen today in room 252. He continues on Eraxis. The patient continues on mechanical ventilation. Labs, x-rays, and medications are reviewed. We will continue to follow the patient, make recommendations. He is getting TPN at 33 cc an hour, and propofol at 30 mcg/kg/min. He continues on norepinephrine at about 3 mcg/min. He is having hemodialysis today. The goal is to remove somewhere between 2 to 3 L of fluid, pending his blood pressure response. The patient will be dropped from 12 cm of water down to 8 cm of water. Blood gases have been reviewed. All labs, x-rays, and medications have been reviewed. We will continue to follow. Prognosis is guarded. Dictation was produced using [employer] software. Please excuse any grammatical, word or spelling errors. Plan dated September 26, 2024. The patient is seen today, in room 252. The patient remains on mechanical ventilation. Blood gases are reasonable. All labs, x-rays, and medications are reviewed. The patient continues on propofol at 20 mcg/kg/min, and norepinephrine at roughly 2 mcg/min. We will continue to follow make recommenda tions. He is being nursed with TPN at 33 cc an hour. 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 Prognosis is guarded. Dictation was produced using [employer] software. Please excuse any grammatical, word or spelling errors. Plan dated September 27, 2024. The patient was seen today in room 252. She remains on mechanical ventilation. Blood gases are reviewed. PO279, GPB066, pH of 7.54. Labs, x-rays, and all medications are reviewed. He continues on propofol at 20 mcg/kg/min, and a sma ll dorsal norepinephrine at 2 mcg/min. Is getting TPN at 33 cc an hour. He continues on Eraxis. He had hemodialysis yesterday. 3 L was removed. All labs, x-rays, and medications are reviewed. We will continue to follow the patient, make recommendations. Dictation was produced using [employer] dictation software. Please excuse any grammatical, word or spelling errors. Plan dated October 12, 2024. The patient is again seen in the intensive care unit. He remains critically ill on mechanical ventilator. He remains on volume assist-control, rate 24, tidal volume 400, FiO2 30%, PEEP of 5. He is getting TPN at 85 cc an hour. He is currently not on any antibiotics, or antifungals. He is scheduled to have hemodialysis today. His last hemodialysis session was last Saturday, and 3 L was removed. Currently he is stable on the ventilator. His peak airway pressure is 27, with a plateau pressure of 17. Labs, x-rays, and all medications are reviewed. The patient is currently being evaluated for transfer to another facility, but that will not happen before October 16, when apparently new ins urance kicks in. We will continue to follow make recommendations. Prognosis is poor. Dictation was produced using [employer] software. Please excuse any grammatical, word or spelling errors. Plan dated October 13, 2024. The patient is again seen today in room 252, in the intensive care unit. The patient remains on mechanical ventilation. He is on volume assist-control, rate 24, tidal volume 400, FiO2 30%, PEEP of 5. No blood gases today. The patient also refused a chest x-ray today. He is getting TPN at 85 cc an hour. No addition of fluids. He is not on any antibiotics. He has completed all of that. Labs, x-rays, and medications are all reviewed. We will continue to follow the patient, make recommendations were appropriate. The discharge planners are hoping to be able to get the patient discharged eventually, once his new insurance, becomes available. Prognosis is certainly guarded. We will continue to follow. Dictation was produced using [employer] software. Please excuse any grammatical, word or spelling errors. Plan dated October 14, 2024. The patient is again seen today in room 252. The patient remains on the ventilator. He is ventilator dependent respiratory failure, and cannot wean. The patient is currently otherwise stable, and he had an uneventful night according to the nurses. The patient is on volume assist-control, rate 24, tidal volume 400, FiO2 30%, PEEP of 5. The patient is getting TPN at 85 cc an hour. Hemodialysis is planned to remove 2.5 L of fluid from the patient today. In my opinion, the patients chest x-ray, is slightly improved unchanged. We will continue to follow the patient, and make recommendations along the way. The patient's overall prognosis remains poor. The patient remains critically ill. Dictation was produced using [employer] software. Please excuse any grammatical, word or spelling errors. Plan dated October 15, 2024. The patient appears to be doing reasonably well. He is seen today in room 252. He remains on mechanical ventilation. Vent settings are the same. No blood gases were done. Chest x-ray was done. In my opinion is stable, to improved. He continues on TPN at 85 cc an hour. He is getting Cortef 10 mg in the morning 5 mg in the evening. The patient did have hemodialysis yesterday, and 2.2 L of fluid was removed. We will continue to follow make recommendations. Hopeful for discharge soon. The patient has not been in the hospital for a number of days. We will continue to follow. Prognosis is guarded. Dictation was produced using [employer] software. Please excuse any grammatical, word or spelling errors. Plan dated October 16, 2024. The patient is very stable, and is doing relatively well. He had an uneventful night according to the nurses. He remains on volume assist-control mode of ventilation. No blood gases have been done. The patient is on TPN at 85 cc an hour. He scheduled to have hemodialysis today. Today, the patient's new insu tonya apparently starts, and, or hoping that we can get the patient off to long- term acute care facility. All labs, x-rays, and medications are reviewed. We will continue to follow the patient, make recommendations were appropriate. Prognosis is guarded. The patient remains a full code. Dictation was produced using [employer] dictation software. Please excuse any grammatical, word or spelling errors. Time with Patient: Greater than 30
[2024-10-16 12:15] LABS: Glucose,Whole Blood 174 mg/dL (70-110)
[2024-10-16 13:43] VITALS: RESP 24
--- NOTE | 2024-10-16 15:18 | P.DS ---
Providers Date of admission: 08/29/24 08:15 Expected date of discharge: 10/16/24 Attending physician: Rony Masters Consults: 08/29/24 08:15 Consult Physician Routine Consulting Provider: Estrella Ho Consult Reason/Comments: cc, pneumonia Do you want consulting provider notified?: Already Contacted 08/30/24 08:12 Consult Physician Routine Consulting Provider: hCanel Uriostegui Consult Reason/Comments: Sepsis Do you want consulting provider notified?: Yes 09/07/24 18:46 Consult Physician Routine Consulting Provider: Messi Li Consult Reason/Comments: bradycardia Do you want consulting provider notified?: Yes 09/20/24 08:18 Consult Physician Routine Consulting Provider: Michael Rinaldi Consult Reason/Comments: KILO Do you want consulting provider notified?: Yes 09/21/24 13:35 Consult Physician Routine Consulting Provider: Jose Cadena Consult Reason/Comments: dialysis catheter Do you want consulting provider notified?: Yes Primary care physician: Johnie Murcia MD Hospital Course: Final diagnosis - Basilar pneumonia. Previous admission sputum was positive for Pseudomonas aeruginosa - Candidemia secondary to left chest wall PICC line that has been discontinued. And repeat blood cultures on September 22 negative. - Fluid overload - Acute kidney injury from ATN from septic shock. And possibly vancomycin toxicity. Oliguric. Volume overload. First dialysis was on September 22.-Has been getting dialysis nearly daily. From now on dialysis schedule be Saturday - Metabolic alkalosis, improved - Septic shock: Requiring pressor support, improved and off pressors - Acute on chronic hypoxic and hypercapnic respiratory failure, vent dependent at night at home, FiO2 30% - Tracheostomy with trach collar -Acute normocytic anemia of chronic disease and hospital-acquired anemia from blood draws and possible hemolysis from infection - Thrombocytopenia likely from sepsis: Corrected - Right below-knee amputation history - Chronic quadriparesis. Including left foot drop. Left arm contracture. Some right hand contracture. Some movement in the right arm - Crohn's disease with double barrel ostomy bag in place since 09/2021 - TPN and lipids, chronically, maintained on Saturday/Saturday/Saturday schedule - Hyperglycemia, likely secondary to Solu-Cortef as well as TPN, started on insulin drip 10/07/2024, improved although continues to be elevated and uncontrolled, off insulin drip - Full code - DPOA, son BECKY Discharge disposition Patient is being discharged in a stable condition with guarded prognosis to [facility] in [place]. Patient will follow-up with Dr. Johnie Vann in the outpatient setting upon discharge. Patient is to continue with hemodialysis on Saturday/Saturday/Saturday and recommend close outpatient follow-up with nephrology and pulmonary as scheduled. Total time taken is greater than 35 minutes. Hospital course 49-year-old patient, follows with Dr. Murcia History of paraplegia, home vent at night, tracheostomy multiple admissions to the ICU for recurrent pneumonia. Patient's previous bronchial cultures been positive for Pseudomonas. He was discharged recently on IV cefepime. Also has a history of Crohn's disease with previous colectomy diverting ileostomy. History of DVT for which patient is on subcu Lovenox. Also had drug-resistant MRSA Pseudomonas. Patient currently does not have areas significant trach secretions. He has continues TPN. Has a right BKA. He does have slight movement in the right hand. Able to follow commands by nodding his head. Answering questions. He is scared by his elder son open. I was also the DPOA. August 30: Overnight patient started having more secretions through the tracheostomy. Vancomycin was added. Also blood pressure running low patient was put on Levophed drip. Otherwise sinus rhythm. Patient remains on the ventilator. Will also send off stool for C. difficile. Also patient IV cefepime. Getting TPN. August 31: ICU. Patient had positive fluid balance. Was given IV Lasix earlier. Remains on Levophed. Spiking fevers. Getting TPN. Stool negative for C. difficile. Patient is growing MDRO Pseudomonas aeruginosa. ID is ordered IV Zerbaxa. Which is currently not available. Patient's friend is visiting him in the ICU. Light trach secretion September 01: ICU. On the ventilator. FiO2 45%. PEEP of 5. Continues to have light trach secretions. Sputum cultures again growing Pseudomonas. Zerbaxa was obtained and resumed. Blood pressure running low. On Levophed. Patient's younger son at the bedside. Colostomy working fine. Has been spiking fevers. Cooling blanket. Ice packs. September 02: ICU. Ventilator FiO2 45%. PEEP of 5. Continues to have some trach secretions. IV Zerbaxa IV tobramycin. TPN lipids to continue. Also Levophed. Patient started cooling blankets since yesterday for temperatures. Along with the nurse speech therapy records were reviewed from last few admissions. Patient with multiple MBS and bedside swallow eval. No trouble with swallowing. Patient put on a chopped diet. Thin liquids. Patient did spike a fever of 101.7 earlier today. Low ionized calcium. IV gluconate given. September 03: ICU. On ventilator FiO2 45%. PEEP of 5. Mild trach secretions. Getting IV TPN lipids. IV tobramycin. Zerbaxa was substituted to Avycaz. By ID. No fever per se since yesterday. For blood pressure patient is also on Levophed and vasopressin. September 04: ICU. On ventilator FiO2 45%. PEEP of 5. Clear trach secretions. Getting IV TPN lipids. IV tobramycin. And IV Avycaz. Remains afebrile.. On Levophed and vasopressin. Awake. 09/06/2024 Patient is seen and evaluated in ICU; remains on mechanical ventilator, actually his home ventilator, with settings of volume assist-control, rate 20, tidal volume 450, FiO2 45%, PEEP of 5. - patient has been refusing blood; no ABGs to. He is getting lactated Ringer's at 50 cc an hour, TPN at 65 cc an hour. - patient remains on the same antibiotics. - Labs reviewed which reveal white count 5.21, hemoglobin 7.9, hematocrit 27.5, and platelet count 64,000. Sodium 141, potassium 3.5, chlorides 102, CO2 32, BUN 25, and creatinine 0.35. Glucose is 152. Calcium is 8. Albumin is 2.1. -Chest x-ray is largely unchanged. Critical care managing mechanical ventilation; recommending to add scopolamine patch for increased secretion -Patient remains on Avycaz and tobramycin - Continue with current TPN 09/07 Patient remains in the ICU lethargic. He is s/p tracheostomy Overnight he was more hypoxic they have to increase PEEP to 8. Also has a lot of secretions when needed for secretions suctioning to try to become apneic per Staff. Patient currently receiving Avycaz and tobramycin. on TPN also 09/08 Patient remains in the ICU awake and alert status post tracheostomy. He has contractures of both upper and lower extremities He is complaining from pain in his lungs. He is status post flexible bronchoscopy and bronchoalveolar lavage yesterday. He has previous sputum culture positive for Pseudomonas currently covered with ceftazidime and tobramycin. He is also on Lovenox 90 mg 09/09 Patient still in the ICU on mechanical ventilation via tracheostomy. PEEP is 8.0 as is yesterday Also he spiked little fever to 100.7. IV vancomycin is added to tobramycin and ceftazidime He is getting also bronchoscopy follow-up culture results 09/10 Patient feels clinically the same, he still getting breathing via mechanical ventilation through his tracheostomy with PEEP of 8. Patient feels he is required suctioning through his tracheostomy tube. He denies chest pain or pain anywhere else he can communicate by head signs and gestures. Hemodynamically stable and afebrile hemoglobin 7.4 platelet count 73 Glucose is controlled potassium 3.3 He remains on broad-spectrum antibiotic Rocephin at this time tobramycin and IV vancomycin added yesterday because he had low-grade fever. He is getting TPN. IV fluid Ringer lactate was stopped and patient was started on IV Lasix 20 mg 3 times a day continue with therapeutic dose of Lovenox as well 09/11 Patient remains in the ICU Remains on mechanical ventilation via tracheostomy He status post bronchoalveolar lavage 2 days ago, culture is growing Pseudomonas aeruginosa and corynebacterium Patient remains on broad-spectrum antibiotics with IV vancomycin, tobramycin, ceftazidime On IV Lasix also is on therapeutic dose of Lovenox 90 mg twice daily No IV fluids 09/12 Patient remains in the ICU Clinically close to what he was over the last 2 days still getting oxygen via his tracheostomy He remains on broad-spectrum antibiotic with Ceftin this time and IV vancomycin. Also he is on IV Lasix 20 mg and therapeutic dose of Lovenox. 09/13 Patient remains in the ICU on mechanical ventilation via tracheostomy Patient looks better today, he breathing better Less secretion Fentanyl patch increased 09/14. Patient seen and examined. Patient continues to be on mechanical ve ntilation via trach mask. Currently on TPN. Currently on IV Zerbaxa and vancomycin 09/15. Patient seen and examined.Vital signs done showed the patient overnight, heart rate 106, blood pressure 107/40, currently on ventilation. Labs reviewed showed WBC 7.27, hemoglobin 7.5, sodium 148 on potassium 4.3, BUN 23, creatinine 0.47 7/2. Patient seen and examined labs reviewed showing WBC 5.45, hemoglobin 9.6, platelet count 131, sodium 146, potassium 4.1, BUN 20, creatinine 0.47. Continue small amount of Levophed. Currently on Zerbaxa and vancomycin. Currently on TPN September 3: ICU. Patient has taken a turn for the worse today. Significant thick white secretions from the trach. Sinus rhythm. Receiving TPN. Patient is on Levophed and vasopressor. Rather high dose. FiO2 [address] of 10. [address] Ho earlier spoke to the patient/family. Remains full code September 18: ICU. Intubated FiO2 70 PEEP of 12. Sinus rhythm. Drips include IV propofol at 50 and Levophed at 0.13. Patient is off vasopressin. Patient secretions. Family at the bedside. September 19: ICU. Intubated. FiO2 50 and a PEEP of 12. Drips include IV Levophed and propofol. Also started on Lasix drip 10 mg an hour yesterday. Secretions present. September 20: ICU. Intubated. FiO2 50 and a PEEP of 12. Hemoglobin 6.3. Secondary to blood being given. Patient been on and off Levophed. On propofol. Lipids have been held. Continues with TPN. Lasix drip was discontinued. Lovenox has been held because of low hemoglobin. Unable anemia is felt to be combination of regular blood draws and possible element element of hemolysis from all the infection. No dark stool. Family at the bedside September 21: ICU. Intubated. Received 2 units of blood yesterday. Hemoglobin 7.6 today. Per nephrology renal replacement therapy. Dialysis access placed by Dr. Cadena. Patient earlier today on Levophed. Propofol. Getting TPN. Sinus rhythm. Urine output decreased September 22: ICU. Intubated. FiO2 15 of PEEP of 12. Seen earlier today. Dialysis being started. Been on IV Levophed propofol. Sinus rhythm. TPN. Sinus rhythm. September 23: ICU. Intubated. Due for another dialysis today. Saw the patient earlier today. Remains on IV Levophed propofol. Sinus rhythm. TPN. On fentanyl patch. September 24: ICU. Intubated. FiO2 40 and PEEP of 12. Remains on IV Levophed and propofol. IV TPN. Decrease trach secretions. IV antibiotics. Was due for dialysis earlier today. September 25: ICU. Intubated. FiO2 30%. Patient getting IV Levophed and propofol. IV TPN. Dialysis today. Receiving IV antibiotics. Does opens eyes oc casionally. Some commands per nursing. September 26: ICU. Intubated. FiO2 30 and a PEEP of 8. Had 2 L hemodialysis removed yesterday. Getting hemodialysis today. Aiming for 2 to 3 L. Patient is on propofol. Currently Levophed on hold. Getting TPN. Patient is actually awake and following commands. Sinus rhythm. September 27: ICU. Intubated. FiO2 39 PEEP of 8. No dialysis today. Remains on IV Levophed propofol. TPN. There is a bedside. Patient asked me how is he doing. Had a lengthy information in terms of his guarded prognosis. Did tell him it is his choice about how he wishes to proceed. He needs to decide between treatment benefits versus in the suffering because of that entails from treatment and his recurrent infections etc. Especially in the context of decreased activity. Kidney failure, respiratory failure etc. September 28: ICU. Intubated. FiO2 30 and a PEEP of 8. For dialysis today. Off Levophed this morning. IV propofol. TPN. Some clear light to trach secretions. Colostomy working. Poor urine output. September 29: ICU. Intubated. IV propofol Levophed. TPN. Awake. Discussed with Dr. Holt. Prognosis very poor. Probably treatment is the point of getting futile. Patient needs about 34 more days to go to long-term ventilator setting. September 30: ICU. Intubated. IV propofol. Currently off Levophed. TPN. Getting dialysis today. Awake. IV antifungal. Given a unit of blood for hemoglobin of 6.9 October 01: ICU. Intubated. IV propofol. Remains on Levophed. TPN dose adjusted. Dialysis. IV aniedulefungin. Eyes open. Vent. FiO2 30%. PEEP 5 September 18: ICU. Intubated. IV propofol. Off Levophed. TPN. Dialysis today. IV aniedulefungin last day on October 06. Per ID. Some trach secretions clear October 03: ICU. Intubated. IV propofol. TPN. Dialysis schedule will now be Saturday. Next dialysis will be on coming Saturday. IV aniedulefungin last day-I October 06. Minimal urine output-5 to 10 cc an hour. Awake. October 04: ICU. Intubated. IV propofol. TPN. Next dialysis on Saturday. IV elevated Lida function. Urine output remains to be minimal. Awake. Mother at the bedside. Does not have any questions. Sinus rhythm. 10/05/2024 Patient seen in follow-up today remains in the ICU on mechanical ventilation FiO2 is 30%. Patient is requiring some small dose Levophed as blood pressures were low maintained on hemodialysis. Multiple consultations following including infectious disease the patient is maintained on Eraxis which will be completed after October 06, 2024. Patient is continued on TPN and will continue. Prognosis remains poor and guarded at this time. 10/06/2024 Patient seen and evaluated in follow-up today with no significant changes other than blood sugars are becoming more elevated likely secondary to Cortef be resumed. Will add long-acting insulin and continue with sliding scale. Would recommend ACHS as well as at 2 AM as needed. Patient is afebrile continued on mechanical ventilation and will be completing Eraxis today. 10/07/2024 Patient seen in follow-up today continues on mechanical ventilation with an FiO2 of 30%, currently awake following commands and is maintained on low-dose propo fol. Blood sugars extremely elevated above 500 and had started long-acting although no improvement, likely secondary to Solu-Cortef and is placed on insulin drip. Will adjust accordingly and titrate and attempt to wean as tolerated. Patient has completed Eraxis with infectious disease following closely. Hemoglobin was also noted to be low at 6.9 today and being transfused 1 unit and will follow-up on repeat labs this afternoon. Patient is scheduled to receive hemodialysis today. Patient is requesting if he can eat although is maintained on TPN and now with blood sugars of 500, no plans for resuming a diet as of today. 10/08/2024 Patient is seen in follow-up today is being closely monitored off antibiotic therapy and has completed Eraxis with infectious disease following closely. Pat ient is maintained on TPN along with Solu-Cortef and blood sugars were elevated requiring insulin drip as blood sugars were also noted to be over 500 yesterday. Blood sugars improved being started on long-acting along with sliding scale and insulin drip discontinued. Cortef also being adjusted per pulmonary cell geneticist. Patient continues on mechanical ventilation is awake and alert. FiO2 is 30%. Hemoglobin is improved status post 1 unit PRBC and is 8.2 today. Sodium improved at 133 with a potassium of 4.3, BUN is 51 and creatinine is 1.48. Case management/social work is following and awaiting until new insurance becomes effective next month and looking into possible ECF versus LTAC. Patient does have significant complex comorbidities and extremely guarded prognosis, would benefit from LTAC. Patient is afebrile and most recent blood cultures remain negative. 10/09/2024 Patient is seen in follow-up this morning continues to be in the ICU. Patient being evaluated by speech as patient would like to eat and will await official report. Patient's blood sugars have improved and transitioned off insulin drip maintained on long-acting along with sliding scale and will continue. Case management/social work is following looking into possible ECF that can accommodate hemodialysis as well as his significant comorbidities and ventilation via tracheostomy. Patient would benefit from LTAC although is having insurance issues. New insurance will become effective in October to be able to receive more LTAC days. Patient with significant multiple comorbidities requiring higher level of care. Patient is afebrile and CBC is within normal limits with no active bleeding noted. Will continue to monitor closely and recommend follow-up labs. 10/12/2024 Patient is seen in follow-up today with multiple consultations following. Patient is currently receiving hemodialysis and hemoglobin is stable with no active bleeding noted. Patient is being closely monitored off antibiotic ther apy with infectious disease following. Patient has completed Eraxis. Patient to continue on TPN and will follow-up on repeat labs. Cortef is being titrated and dose is being decreased. Continue monitoring Accu-Cheks and tight glycemic control. Patient is maintained on mechanical ventilation via tracheostomy with FiO2 of 30%. Awaiting for new insurance to become effective October 16 and then will be determined an ECF versus LTAC 10/13/2024 Patient is seen in follow-up today with no acute overnight issues noted. Hemoglobin is stable above 8.1 with no active bleeding noted. Blood sugar slig htly elevated and Cortef is being weaned down. Patient is currently receiving hemodialysis. Apparently per nursing, new insurance becomes effective October 16, 2024 with case management following looking into possible LTAC versus ECF that can accommodate tracheostomy with chronic vent, TPN. Patient is afebrile and was recently reevaluated by speech maintained on diet with aspiration precautions ordered. 10/14/2024 Patient is continued on mechanical ventilation via tracheostomy with FiO2 of 30% with no changes made. Patient currently awaiting new insurance to become effective after October 16 to determine if patient has eligible LTAC days versus ECF. Patient is maintained on TPN and will continue at this time. Blood sugars controlled on current regimen and will adjust insulins accordingly. Patient is afebrile with no reported chest pain or palpitations. Patient is continued on hemodialysis with nephrology following closely. Hemoglobin is stable above 8 with no active bleeding noted. Recommend follow-up labs and replacing electrolytes per protocol. Chest x-ray reveals stable chest with continued effusions noted. 10/15/2024 Patient seen in follow-up today with no acute overnight issues noted. Patient continues on mechanical ventilation via tracheostomy and will continue with current treatment plan. Patient is continued on hemodialysis with nephrology following and hemoglobin remained stable at 7.5. No active bleeding noted. Patient continued on TPN and will follow-up with repeat labs and replace electrolytes per protocol. Will discuss further with case management regarding discharge planning and treatment plan moving forward after new insurance is effective after October 16. 10/16/2024. Patient new insurance authorization has been approved for LTAC and [facility] accepted and will be going today. Patient is maintained on dialysis Saturday/Saturday/Saturday and will continue. Patient is maintained off antibiotic therapy per infectious disease and has been doing well as patient did have Pseudomonas pneumonia which has resolved. Patient has also completed Eraxis therapy due to possible fungemia. Patient is maintained on TPN and will continue current regimen for chronic Crohn's disease and moderate protein malnutrition. Patient has been cleared by pulmonary cell geneticist and consultations for transfer to [facility] for further continued ongoing care. Please refer to other consultation notes for further HPI. Patient has guarded prognosis and is high risk for readmissions given significant comorbidities. Overall prognosis is poor and family along with patient wishes to remain full code at this time. Physical examination: GENERAL:, 49-year-old male who is asleep although arousable, awake, alert and oriented x 3, following commands continued on mechanical ventilation via tracheostomy with an FiO2 of 30%, chronically ill-appearing EYES: Pupils equal. Conjunctiva normal HEENT: External appearance of nose and ears normal, oral cavity dry NECK: JVD unable to assess; masses not palpable. Tracheostomy HEART: First and second heart sounds are normal; no edema. LUNGS: decreased breath sounds bilaterally, some crackles ABDOMEN: Soft, nontender, liver spleen not palpable, no masses palpable. Double barrel ostomy. PSYCH: Following simple commands, lethargic, undergoing hemodialysis MUSCULOSKELETAL: Right BKA. Left foot drop. Left hand contracture. Right hand also with contracture but able to have some movements NEUROLOGICAL: Cranial nerves grossly intact; no facial asymmetry, slight movement in the right arm. The impression and plan of care has been dictated by Alyssa Hernandez, Nurse Practitioner as directed. Dr. Vicente MD I have performed a history and examination and MDM of this patient, discussed the same with the dictator, and agree with the dictator's assessment and plan as written ,documented as a scribe. Based on total visit time, I have performed more than 50% of the visit. Patient Condition at Discharge: Serious Plan - Discharge Summary Discharge Rx Participant: Yes New Discharge Prescriptions: No Action Pantoprazole [Protonix] 40 mg PO BID Folic Acid 1 mg PO DAILY HYDROcodone/APAP 5-325MG [[place] 5-325] 1 tab PO Q6H PRN PRN Reason: Pain Ipratropium-Albuterol Nebulize [Duoneb 0.5 mg-3 mg/3 ml Soln] 3 ml INHALATION RT-QID PRN each PRN Reason: Shortness Of Breath Or Wheezing Scopolamine 1 mg/72 Hr Patch [TransDerm Scop] 1 patch TRANSDERM Q72H #30 patch Thiamine [Vitamin B-1] 100 mg PO DAILY Enoxaparin [Lovenox] 100 mg SQ Q12H Loperamide HCl [Imodium A-D] 4 mg PO Q6H busPIRone HCl [Buspar] 15 mg PO BID 30 Days #60 tab Ipratropium-Albuterol Nebulize [Duoneb 0.5 mg-3 mg/3 ml Soln] 3 ml INHALATION RT-QID #100 each Amoxic-Pot Clav 875-125Mg [Augmentin 875-125] 1 tab PO BID Cholecalciferol [Vitamin D3 (125 Mcg = 5000 Iu)] 125 mcg PO DAILY Cholecalciferol (Vitamin D3) [Vitamin D3 (1250 Mcg = 50,000 Iu)] 1,250 mcg PO MOTH Furosemide [Lasix] 20 mg PO DAILY Discharge Medication List Pantoprazole [Protonix] 40 mg PO BID 07/07/22 [History] Enoxaparin [Lovenox] 100 mg SQ Q12H 06/19/24 [History] Folic Acid 1 mg PO DAILY 06/19/24 [History] Loperamide HCl [Imodium A-D] 4 mg PO Q6H 06/19/24 [History] Thiamine [Vitamin B-1] 100 mg PO DAILY 06/19/24 [History] busPIRone HCl [Buspar] 15 mg PO BID 30 Days #60 tab 07/14/24 [Rx] HYDROcodone/APAP 5-325MG [[place] 5-325] 1 tab PO Q6H PRN 07/17/24 [History] Ipratropium-Albuterol Nebulize [Duoneb 0.5 mg-3 mg/3 ml Soln] 3 ml INHALATION RT-QID #100 each 08/04/24 [Rx] Ipratropium-Albuterol Nebulize [Duoneb 0.5 mg-3 mg/3 ml Soln] 3 ml INHALATION RT-QID PRN each 08/04/24 [Rx] Scopolamine 1 mg/72 Hr Patch [TransDerm Scop] 1 patch TRANSDERM Q72H #30 patch 08/04/24 [Rx] Amoxic-Pot Clav 875-125Mg [Augmentin 875-125] 1 tab PO BID 08/19/24 [History] Cholecalciferol (Vitamin D3) [Vitamin D3 (1250 Mcg = 50,000 Iu)] 1,250 mcg PO MOTH 08/29/24 [History] Cholecalciferol [Vitamin D3 (125 Mcg = 5000 Iu)] 125 mcg PO DAILY 08/29/24 [History] Furosemide [Lasix] 20 mg PO DAILY 08/29/24 [History] Follow up Appointment(s)/Referral(s): Johnie Murcia MD [Primary Care Provider] - 1-2 days Infusion [facility] [REFERRING] - 1 Week Residential Home,Health [NON-STAFF] - 1 Week
[2024-10-16 16:19] VITALS: PULSE 103
[2024-10-16 16:22] VITALS: BP 124/66; TEMP 98.9
== END 2024-10-16 17:35 | DRG 314 ==
LOC: EC 04:57 → 2SICU 08:15
PROVIDERS: ADMIT Hospitalist; ATTEND Hospitalist
PROC: 5A1955Z Respiratory Ventilation, Greater than 96 Consecutive Hours (ICD-10-PCS; 2024-08-29)
PROC: 0BC78ZZ Extirpation of Matter from Left Main Bronchus, Via Natural or Artificial Opening Endoscopic (ICD-10-PCS; principal; 2024-09-07)
PROC: 0B9F8ZX Drainage of Right Lower Lung Lobe, Via Natural or Artificial Opening Endoscopic, Diagnostic (ICD-10-PCS; 2024-09-07)
PROC: 0BC38ZZ Extirpation of Matter from Right Main Bronchus, Via Natural or Artificial Opening Endoscopic (ICD-10-PCS; 2024-09-07)
PROC: 03HY32Z Insertion of Monitoring Device into Upper Artery, Percutaneous Approach (ICD-10-PCS; 2024-09-17)
PROC: 4A133B1 Monitoring of Arterial Pressure, Peripheral, Percutaneous Approach (ICD-10-PCS; 2024-09-17)
PROC: 4A133J1 Monitoring of Arterial Pulse, Peripheral, Percutaneous Approach (ICD-10-PCS; 2024-09-17)
PROC: 02HV33Z Insertion of Infusion Device into Superior Vena Cava, Percutaneous Approach (ICD-10-PCS; 2024-09-17)
PROC: 02HV33Z Insertion of Infusion Device into Superior Vena Cava, Percutaneous Approach (ICD-10-PCS; 2024-09-21)
PROC: 03HY32Z Insertion of Monitoring Device into Upper Artery, Percutaneous Approach (ICD-10-PCS; 2024-09-22)
PROC: 5A1D70Z Performance of Urinary Filtration, Intermittent, Less than 6 Hours Per Day (ICD-10-PCS; 2024-09-22)
PROC: 02HV33Z Insertion of Infusion Device into Superior Vena Cava, Percutaneous Approach (ICD-10-PCS; 2024-09-30)
DX: T80.211A Bloodstream infection due to central venous catheter, initial encounter (principal); A41.52 Sepsis due to Pseudomonas; J96.22 Acute and chronic respiratory failure with hypercapnia; J96.21 Acute and chronic respiratory failure with hypoxia; B37.7 Candidal sepsis; N17.0 Acute kidney failure with tubular necrosis; R65.21 Severe sepsis with septic shock; G82.50 Quadriplegia, unspecified; J15.1 Pneumonia due to Pseudomonas; E44.0 Moderate protein-calorie malnutrition; D63.8 Anemia in other chronic diseases classified elsewhere; N18.9 Chronic kidney disease, unspecified; I44.2 Atrioventricular block, complete; K50.90 Crohn's disease, unspecified, without complications; Z99.11 Dependence on respirator [ventilator] status; D62 Acute posthemorrhagic anemia; E87.4 Mixed disorder of acid-base balance; E27.40 Unspecified adrenocortical insufficiency; E87.1 Hypo-osmolality and hyponatremia; T17.890A Other foreign object in other parts of respiratory tract causing asphyxiation, initial encounter; N39.0 Urinary tract infection, site not specified; Z16.24 Resistance to multiple antibiotics; Z89.511 Acquired absence of right leg below knee; Z93.3 Colostomy status; Z93.0 Tracheostomy status; Y71.2 Prosthetic and other implants, materials and accessory cardiovascular devices associated with adverse incidents; Z68.28 Body mass index [BMI] 28.0-28.9, adult; E83.42 Hypomagnesemia; D69.59 Other secondary thrombocytopenia; E87.5 Hyperkalemia; E87.6 Hypokalemia; E87.70 Fluid overload, unspecified; J98.09 Other diseases of bronchus, not elsewhere classified; W44.F9XA Other object of natural or organic material, entering into or through a natural orifice, initial encounter; M21.372 Foot drop, left foot; R54 Age-related physical debility; M24.541 Contracture, right hand; Z79.899 Other long term (current) drug therapy; Z79.01 Long term (current) use of anticoagulants; Z86.74 Personal history of sudden cardiac arrest; Z86.73 Personal history of transient ischemic attack (TIA), and cerebral infarction without residual deficits; Z87.891 Personal history of nicotine dependence; N50.89 Other specified disorders of the male genital organs; T36.8X5A Adverse effect of other systemic antibiotics, initial encounter; Z86.718 Personal history of other venous thrombosis and embolism
CPT/HCPCS: 36415; 36558; 36573; 71045; 74230; 76937; 77001; 80048; 80053; 80200; 80202; 81001; 82040; 82272; 82330; 82533; 82565; 82803; 82805; 83036; 83540; 83550; 83605; 83735; 83880; 84100; 84132; 84145; 84443; 84478; 84484; 85025; 85027; 85379; 85610; 85730; 86706; 86850; 86900; 86901; 86920; 87040; 87070; 87077; 87186; 87205; 87324; 87340; 87449; 87636; 90935; 93005; 94002; 94003; 94640; 96365; 96375; 99291